=== PATIENT | male | born 1955 | race Caucasian/White ===

== ENCOUNTER 2018-04-03 00:09 | Outpatient (CLI) | payer OTHER, SELFPAY ==
[2018-04-03] MEDS: Regadenoson 0.4 MG/5 ML SYR IVP (15:04)
== END 2018-04-03 00:29 ==
PROVIDERS: PCP Family Medicine; Visit Provider Family Medicine
DX: R06.02 Shortness of breath (principal)
CPT/HCPCS: J2785

== ENCOUNTER 2018-04-03 00:34 | Outpatient (CLI) | payer OTHER, SELFPAY ==
--- NOTE | 2018-04-03 10:25 | DI.US_ITS ---
SYMPTOMS/DIAGNOSIS: H/O KIDNEY TRANSPLANT, Z94.0 RENAL ULTRASOUND: Comparison is made with CT of the abdomen and pelvis dated November,. The [place] kidneys are atrophic. There is a left lower quadrant renal transplant. There is no evidence of hydronephrosis, calcification or perinephric collection. The prevoid bladder volume measured 203 cc. There is an elevated postvoid residual of 84 cc. The bladder wall appears mildly thickened. The prostate was not measured, but appeared mildly enlarged on the previous CT. IMPRESSION: Elevated postvoid residual. Unremarkable renal transplant. Atrophic [place] kidneys without evidence of hydronephrosis.
--- NOTE | 2018-04-03 11:30 | MERGEMPI_ITS ---
*[facility]* *[facility]* [address] [place] [address] Myocardial Perfusion Imaging - SPECT Regadenoson Date of study: 04/03/2018 *PATIENT PRESENTATION* Height: 193cm (76in) Blood Pressure: Weight: 136.4kg (300lb) BSA: 2.75m^2 Referring physician: Bimal Wick Ordering physician: Violetta Sanford Impressions: - Normal perfusion by Tc99m Sestamibi Imaging. - Abnormal contraction consistent with cardiomyopathy. Summary: 1. Myocardial perfusion imaging: The left ventricle is mildly dilated. No myocardial perfusion defects noted. 2. The calculated left ventricular ejection fraction after stress: 33%. LV global systolic function is moderate to severely reduced. Diffuse left ventricular regional motion abnormalities. Recommendations: 1. Transthoracic echocardiography should be performed in order to evaluate LV function. 2. If abnormal LV function on echocardiogram, cardiology consult to discuss cardiac catheterization. Indication: R06.02. History: REASON FOR VISIT: SHORTNESS OF BREATH. DIABETES. KIDNEY TRANSPLANT IN 2007. Risk factors: Diabetes mellitus. Dyslipidemia. Cholesterol: 100mg/dl. HDL: 28mg/dl. LDL: 71mg/dl. Triglycerides: 187mg/dl. ALLERGIES: CLINDAMYCIN. IBUPROFEN. PENICILLINS. LISINOPRIL. MEDICATIONS: PROGRAF 1 MG CAP TWICE A DAY. CELLCEPT 250 MG 2 CAPS TWICE A DAY. LEVEMIR 50 UNITS IN THE AM AND 80 UNITS IN THE PM. HUMALOG KWIKPEN 30-35 UNTIS QID WITH MEALS AND SNACKS. LOSARTAN POTASSIUM 25 MG 1 TAB DAILY. PROPRANOLOL HCL ER 160 MG 2 TABS TWICE A DAY. ATORVASTATIN CALCIUM 20 MG DAILY. GABAPENTIN 300 MG TAKE 3 CAPS THREE TIMES A DAY. BACTRIM DS 800-160 MG TWICE A DAY. OMEPRAZOLE 40 MG DAILY. MONTELUKAST SODIUM 10 MG DAILY. IPRATROPIUM-ALBUTEROL NEBULIZERS. STIOLTO RESPIRMAT MDI 2 PUFFS ONCE A DAY. VENTOLIN HFA MDI PRN. FLUTICASONE PROPIONATE 50 MCG/ACT NASAL SPRAY 2 SPRAYS TWICE A DAY. ASPIRIN 81 MG DAILY. VITAMIN D 2000 UNITS 1 TAB DAILY. FOLIC ACID 1 MG TAKE 2 TABS DAILY. Imaging Technique: Protocol: Regadenoson. Acquisition: Gated SPECT; 1 day - rest/stress. The patient was imaged in the supine position. Attenuation correction used. Isotope administration: - Rest. Tc[99m]-sestamibi. Dose: 9.9mCi. Injection time: 11:55 AM. Injection to stress time: 00:45. - Stress. Tc[99m]-sestamibi. Dose: 28.1mCi. Injection time: 02:30 PM. 1-2 min before end of exercise Baseline ECG: SINUS RHYTHM. 1ST DEGREE AVB. HR 74 BPM. Normal sinus rhythm. Stress protocol: +--------+--+ + + !Stage !HR!BP (mmHg) !Comments ! +--------+--+ + + !Baseline!74!152/64 (93)! ! +--------+--+ + + !1 min !88!142/58 (86)!Inject Regadenoson.! +--------+--+ + + !3 min !85!146/58 (87)! ! +--------+--+ + + !6 min !83!138/52 (81)! ! +--------+--+ + + * Stress results: The rate-pressure product for the peak heart rate and blood pressure was 24383yy Hg/min. Stress ECG: STRESS TEST ENDED IN 6 MINUTES & 18 SECONDS. PT EXPERIENCED NO SIGNIFICANT SIDE EFFECTS FROM THE LEXISCAN INJECTION. NORMAL HEART RATE AND BLOOD PRESSURE RESPONSE TO LEXISCAN INJECTION. NO ECTOPY NO ANGINA NO SIGNIFICANT ST SEGMENT CHANGES. Myocardial perfusion: Imaging information: gated. The image quality was good. The left ventricle is mildly dilated. No myocardial perfusion defects noted. Ventricular Function (Wall Motion): The calculated left ventricular ejection fraction after stress: 33%. LV global systolic function is moderate to severely reduced. Diffuse left ventricular regional motion abnormalities. Study data: Bimal Wick MD supervised and was readily available during the procedure. This study was interpreted by [facility]. Study status: Routine. Consent: The risks, benefits, and alternatives to the procedure were explained to the patient and informed consent was obtained. Procedure: Initial setup. A baseline ECG was recorded. Surface ECG leads and manual cuff blood pressure measurements were monitored. Heart sounds: Normal. Lung sounds: Abnormal. Regadenoson stress test. Stress testing was performed, with regadenoson by intravenous bolus, for a total dose of 0.4mgover 10.00sec, followed by a 5ml saline flush. The infusion was terminated due to per protocol. Study completion: All catheters inserted during the procedure were removed. The patient tolerated the procedure well and was discharged from the lab. Discharge: The patient left the laboratory in stable condition. Birthdate: Patient birthdate: 1955. Sex: Gender: male. Study date: Study date: 04/03/2018. Study time: 12:30 PM. Signature Documentation: - The imaging portion of this study was interpreted by [facility] Bimal Wick MD. - The Stress ECG portion of this study was interpreted by Bimal Wick MD. Electronically signed by Bimal Wick 04/03/2018 16:20
== END 2018-04-03 00:54 ==
PROVIDERS: PCP Family Medicine; Visit Provider Family Medicine
DX: Z94.0 Kidney transplant status (principal); E78.5 Hyperlipidemia, unspecified; R06.02 Shortness of breath; I42.9 Cardiomyopathy, unspecified; I50.1 Left ventricular failure, unspecified; E11.9 Type 2 diabetes mellitus without complications; Z79.4 Long term (current) use of insulin
CPT/HCPCS: 76770; 78452; 93016; 93018; 93017

== ENCOUNTER 2018-04-14 00:31 | Outpatient (CLI) | payer OTHER, SELFPAY ==
--- NOTE | 2018-04-14 13:41 | MERGE_ITS ---
*[facility]* *[facility]* [address] [place] [address] Date of study: 04/14/2018 Transthoracic Echocardiography M-mode, complete 2D, complete spectral Doppler, and color Doppler *STUDY CONCLUSIONS* Impressions: Low-normal LVEF. Recent LVEF estimate on MPI was false-low, likely imaging artifact. Summary: 1. Left ventricle: The cavity size was normal. Wall thickness was increased in a pattern of mild LVH. Systolic function was at the lower limits of normal. The estimated ejection fraction was 50-55%. Wall motion was normal; there were no regional wall motion abnormalities. 2. Mitral valve: Moderate focal calcification of the posterior leaflet. 3. Right ventricle: The cavity size was normal. Wall thickness was normal. Systolic function was normal. 4. Tricuspid valve: There was mild-moderate regurgitation. *PATIENT PRESENTATION* Height: 190.5cm ((75in) ) S/D Pressure: 130 / 67 Weight: 136.1kg ((299.4lb) ) BSA: 2.73m^2 Test start time: 01:40 PM. Test stop time: 02:30 PM. 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. Pertinent images and digital data are archived for permanent storage and are available for subsequent review. Comparison was made to the study of 07/16/2016. Study status: Routine. Transthoracic echocardiography. M-mode, complete 2D, complete spectral Doppler, and color Doppler. A Transthoracic Echocardiogram was performed. Scanning was performed from the parasternal, apical, subcostal, and suprasternal notch acoustic windows. Images were obtained using an [employer] 2000 cardiac ultrasound machine. Image quality was fair. Study completion: The patient tolerated the procedure well. History: PMH: CHF, Abnormal MIBI. *CARDIAC ANATOMY* Left ventricle: The cavity size was normal. Wall thickness was increased in a pattern of mild LVH. Systolic function was at the lower limits of normal. The estimated ejection fraction was 50-55%. Wall motion was normal; there were no regional wall motion abnormalities. Aortic valve: Trileaflet; mildly thickened leaflets. Mobility was not restricted. Doppler: Transvalvular velocity was within the normal range. There was no stenosis. There was no significant regurgitation. VTI ratio of LVOT to aortic valve: 0.7. Valve area (VTI): 2.2cm^2. Indexed valve area (VTI): 0.8cm^2/m^2. Peak velocity ratio of LVOT to aortic valve: 0.59. Valve area (Vmax): 1.9cm^2. Indexed valve area (Vmax): 0.7cm^2/m^2. Mean velocity ratio of LVOT to aortic valve: 0.57. Valve area (Vmean): 1.8cm^2. Indexed valve area (Vmean): 0.7cm^2/m^2. Mean gradient (S): 5.5mm Hg. Peak gradient (S): 10.1mm Hg. Aorta: Aortic root: The aortic root was normal in size. Ascending aorta: The ascending aorta was normal in size. Mitral valve: Moderate focal calcification of the posterior leaflet. Mobility was not restricted. Doppler: Transvalvular velocity was within the normal range. There was no evidence for stenosis. There was trivial regurgitation. Valve area by pressure half-time: 3.7cm^2. Indexed valve area by pressure half-time: 1.4cm^2/m^2. Peak gradient (D): 2.4mm Hg. Left atrium: The atrium was at the upper limits of normal in size. Right ventricle: The cavity size was normal. Wall thickness was normal. Systolic function was normal. Pulmonic valve: Poorly visualized. Doppler: Transvalvular velocity was within the normal range. There was no evidence for stenosis. There was trivial regurgitation. Peak gradient (S): 5.6mm Hg. Tricuspid valve: Structurally normal valve. Doppler: Transvalvular velocity was within the normal range. There was no evidence for stenosis. There was mild-moderate regurgitation. Pulmonary artery: Poorly visualized. Pulmonary systolic pressure was at the upper limits of normal. Right atrium: The atrium was at the upper limits of normal in size. Pericardium: There was no pericardial effusion. Systemic veins: Inferior vena cava: Poorly visualized. Measurements Left ventricle Value 07/16/2016 Reference LV ID, ED, PLAX 5.3 cm 6.2 3.5 - 6.0 LV ID, ES, PLAX 3.8 cm 3.9 2.1 - 4.0 LV PW thickness, ED, PLAX 1.2 cm 1.3 LV end-diastolic volume, 103 ml 1-p A2C LV ejection fraction, 1-p 61 % 57 A2C LV end-diastolic volume, 130 ml 1-p A4C LV ejection fraction, 1-p 48 % 61 A4C Ventricular septum Value 07/16/2016 Reference IVS thickness, ED, PLAX 1.2 cm 1.4 LVOT Value 07/16/2016 Reference LVOT ID, A-P 2.0 cm 2.4 LVOT area 3.1 cm^2 4.4 LVOT peak velocity, S 0.95 m/sec 1.13 LVOT mean velocity, S 0.63 m/sec LVOT VTI, S 19.2 cm 25.2 LVOT peak gradient, S 3.6 mm Hg 5.1 LVOT mean gradient, S 1.9 mm Hg 3 Stroke volume (SV), LVOT 60 ml DP Stroke index (SV/bsa), 22 ml/m^2 LVOT DP Aortic valve Value 07/16/2016 Reference Aortic valve peak 1.6 m/sec velocity, S Aortic valve mean 1.1 m/sec velocity, S Aortic valve VTI, S 27.6 cm Aortic mean gradient, S 5.5 mm Hg 8 Aortic peak gradient, S 10.1 mm Hg 16 VTI ratio, LVOT/AV 0.7 0.58 Aortic valve area, VTI 2.2 cm^2 2.6 Velocity ratio, peak, 0.59 LVOT/AV Aortic valve area, peak 1.9 cm^2 2.5 velocity Velocity ratio, mean, 0.57 LVOT/AV Aortic valve area, mean 1.8 cm^2 velocity Aortic valve area/bsa, 0.7 cm^2/m^2 mean velocity Aorta Value 07/16/2016 Reference Aortic root ID, ED 3.4 cm Ascending aorta ID, A-P, S 3.4 cm 3.3 Left atrium Value 07/16/2016 Reference LA ID, A-P, ES 4.2 cm LA ID/bsa, A-P 1.5 cm/m^2 <=2.2 LA area, ES, A4C 21.6 cm^2 35 8.8 - 23.4 LA area, ES, A2C 23 cm^2 LA volume/bsa, S 28 ml/m^2 LA volume, ES, 2-p 69 ml LA volume/bsa, ES, 2-p 25 ml/m^2 LA/aortic root ratio 1.24 1.43 Mitral valve Value 07/16/2016 Reference Mitral E-wave peak 0.77 m/sec 0.78 velocity Mitral A-wave peak 0.5 m/sec 0.78 velocity Mitral deceleration time 205 ms 150 - 230 Mitral pressure half-time 59 ms 73 Mitral peak gradient, D 2.4 mm Hg 2.4 Mitral E/A ratio, peak 1.54 1.01 Mitral valve area, PHT, DP 3.7 cm^2 3 Pulmonary arteries Value 07/16/2016 Reference PA pressure, S, DP 30 mm Hg <=30 Tricuspid valve Value 07/16/2016 Reference Tricuspid regurg peak 2.5 m/sec 3.7 velocity Tricuspid peak RV-RA 25.1 mm Hg 53.3 gradient Right atrium Value 07/16/2016 Reference RA area, ES, A4C 18.9 cm^2 27 8.3 - 19.5 Systemic veins Value 07/16/2016 Reference Estimated CVP 10 mm Hg Right ventricle Value 07/16/2016 Reference RV pressure, S, DP (H) 35 mm Hg <=30 Pulmonic valve Value 07/16/2016 Reference Pulmonic peak gradient, S 5.6 mm Hg 9 Legend: (L) and (H) pascale values outside specified reference range. I have personally reviewed the images and have reviewed and edited the reported findings. Electronically signed by Dee Whitaker 04/14/2018 15:59
== END 2018-04-14 00:51 ==
PROVIDERS: PCP Family Medicine; Visit Provider Family Medicine
DX: I50.9 Heart failure, unspecified (principal); I05.9 Rheumatic mitral valve disease, unspecified; I07.1 Rheumatic tricuspid insufficiency
CPT/HCPCS: 93306

== ENCOUNTER 2018-05-04 11:50 | Emergency (ER) | payer OTHER, SELFPAY ==
[2018-05-04 11:59] VITALS: BP 128/61; PULSE 90; RESP 18; TEMP 37.2; O2SAT 95
--- NOTE | 2018-05-04 12:13 | DI.RAD_ITS ---
SYMPTOMS/DIAGNOSIS: COUGH AND FEVER PA AND LATERAL CHEST: Comparison is made with September,. The heart size is normal. The lungs are clear. No infiltrate or effusion is seen. IMPRESSION: Negative chest x-ray.
--- NOTE | 2018-05-04 12:14 | W.ED.GENAD ---
Discharge Plan Disposition Patient Disposition: HOME Condition: Stable Discharge Details Chief Complaint: RespSymp Clinical Impression: COPD with exacerbation Primary Care Provider: Violetta Sanford ED Provider: Alejo Carlisle Home Meds and New Rx's Prescriptions: New prednisone 20 mg tablet 60 mg PO DAILY 4 Days Qty: 12 RF: 0 levofloxacin 750 mg tablet 750 mg PO DAILY Qty: 7 RF: 0 Continue propranolol [Inderal LA] 160 MG capsule,extended release 24 hr 160 mg PO BID RF: 0 aspirin [Aspirin Low Dose] 81 MG tablet,delayed release (DR/EC) 81 mg PO DAILY RF: 0 omeprazole [Prilosec] 40 MG capsule,delayed release(DR/EC) 40 mg PO DAILY RF: 0 montelukast 10 MG tablet 10 mg PO DAILY RF: 0 multivitamin [Daily Multi-Vitamin] 1 EACH tablet 1 ea PO DAILY RF: 0 tacrolimus [Prograf] 1 MG capsule 1 mg PO BID RF: 0 gabapentin 300 MG capsule 900 mg PO TID RF: 0 cholecalciferol (vitamin D3) [Vitamin D3] 2,000 UNIT tablet 2,000 unit PO DAILY RF: 0 fluticasone 16 GM spray,suspension 2 spry NS DAILY PRNRF: 0 albuterol sulfate [ProAir HFA] 200 PUFF HFA aerosol inhaler 2 puff Inhalation PRN PRNRF: 0 albuterol sulfate [Ventolin HFA] 90 mcg/actuation Hfa Aerosol Inhaler 90 mcg Inhalation RF: 0 tiotropium-olodaterol [Stiolto Respimat] 2.5-2.5 mcg/actuation Mist 2.5 mcg Inhalation RF: 0 insulin aspart U-100 [Novolog Flexpen U-100 Insulin] 300 UNITS/3 ML insulin pen Sub-Q 0800,1200,1700 RF: 0 insulin aspart U-100 [Novolog Flexpen U-100 Insulin] 300 UNITS/3 ML insulin pen Sub-Q AC Qty: 0 RF: 0 insulin detemir U-100 [Levemir FlexTouch U-100 Insuln] 300 UNITS/3 ML insulin pen 80 units Sub-Q QPM RF: 0 insulin detemir U-100 [Levemir FlexTouch U-100 Insuln] 300 UNITS/3 ML insulin pen 50 units Sub-Q QAM RF: 0 atorvastatin [Lipitor] 20 MG tablet 1 tab PO DAILY RF: 0 losartan 25 MG tablet 0.5 tab PO DAILY RF: 0 Discharge Instructions Instructions: COPD (Chronic Obstructive Pulmonary Disease) (ED) Additional Instructions: follow up with your primary care provider's office within a week if you have significant worsening of breathing despite using your inhalers or nebulizers return to the emergency department Discharge Data Discharge Physician: Alejo Carlisle Medical Decision Making 62 yo male with hx of cad, hld, htn, ckd, copd, former smoker, comes in with productive cough and subjective fevers since yesterday. Denies recent travel, chest pain or abdominal pain. He does have wheezing bilaterally on exam but is speaking in full sentences. Suspect copd exacerbation will treat with steroids and nebulizer, and obtai xray to eval for pna as well. pt's labs show no acute abnormality and xray unremrakable, lung sounds much improved. I am going to start tx for copd exacerbation and he is stable for outpatient management, will have him f/u with pcps office within a week and return precautions given Differential Diagnosis copd, pna, influenza HPI General Mode of arrival: wheelchair. Date/Time Provider Initiated Documentation: 05/04/18 12:03. Limitations to Documentation: no limitations. Information obtained by: patient. History of Present Illness 62 year old M presents to the emergency department with the chief complaint of cough, described as moderate, with intensity rated at 3. No relieving factors improve symptom(s), No exacerbating factors reported . Patient notes other (subjective fevers). Patient did receive the following treatments prior to arrival, none Related Data Home Medications Medication Instructions Recorded Confirmed aspirin [Aspirin Low Dose] 81 mg PO DAILY 10/31/12 05/04/18 montelukast 10 mg PO DAILY tab-cap 10/31/12 05/04/18 omeprazole [Prilosec] 40 mg PO DAILY 10/31/12 05/04/18 propranolol [Inderal LA] 160 mg PO BID 10/31/12 05/04/18 multivitamin [Daily Multi-Vitamin] 1 ea PO DAILY 05/10/13 05/04/18 tacrolimus [Prograf] 1 mg PO BID 06/15/13 05/04/18 gabapentin 900 mg PO TID 10/30/14 05/04/18 albuterol sulfate [ProAir HFA] 2 puff INHALATION PRN PRN 01/16/16 05/04/18 cholecalciferol (vitamin D3) 2,000 unit PO DAILY 01/16/16 05/04/18 [Vitamin D3] fluticasone 2 spry NS DAILY PRN 01/16/16 05/04/18 insulin aspart U-100 [Novolog 0 units SUB-Q 0800,1200,1700 pen 07/19/16 05/04/18 Flexpen U-100 Insulin] insulin aspart U-100 [Novolog See Protocol SUB-Q AC #0 pen 07/19/16 05/04/18 Flexpen U-100 Insulin] insulin detemir U-100 [Levemir 50 units SUB-Q QAM pen 07/19/16 05/04/18 FlexTouch U-100 Insuln] insulin detemir U-100 [Levemir 80 units SUB-Q QPM pen 07/19/16 05/04/18 FlexTouch U-100 Insuln] atorvastatin [Lipitor] 1 tab PO DAILY 02/01/17 05/04/18 losartan 0.5 tab PO DAILY 02/01/17 05/04/18 albuterol sulfate [Ventolin HFA] 90 mcg INHALATION 05/04/18 levofloxacin 750 mg PO DAILY #7 tab 05/04/18 prednisone 60 mg PO DAILY 4 Days #12 tab 05/04/18 tiotropium-olodaterol [Stiolto 2.5 mcg INHALATION 05/04/18 Respimat] Previous Rx's Medication Instructions Recorded insulin aspart U-100 [Novolog 0 units SUB-Q 0800,1200,1700 pen 07/19/16 Flexpen U-100 Insulin] insulin aspart U-100 [Novolog See Protocol SUB-Q AC #0 pen 07/19/16 Flexpen U-100 Insulin] insulin detemir U-100 [Levemir 50 units SUB-Q QAM pen 07/19/16 FlexTouch U-100 Insuln] insulin detemir U-100 [Levemir 80 units SUB-Q QPM pen 07/19/16 FlexTouch U-100 Insuln] levofloxacin 750 mg PO DAILY #7 tab 05/04/18 prednisone 60 mg PO DAILY 4 Days #12 tab 05/04/18 Allergies Allergy/AdvReac Type Severity Reaction Status Date / Time clindamycin Allergy Skin Rash Verified 05/04/18 12:41 ibuprofen Allergy Verified 05/04/18 12:41 Penicillins Allergy SWELLING Verified 05/04/18 12:41 tree nut Allergy Verified 05/04/18 12:41 lisinopril AdvReac KIDNEY Verified 05/04/18 12:41 SHUT DOWN yanteh inhibitors Allergy Mild Skin Rash Uncoded 05/04/18 12:41 CATS & BIRDS AdvReac Intermediate WHEEZING Uncoded 05/04/18 12:41 General Stated Complaint: RespSymp RADHA: 3 Review of Systems Review of Systems All systems reviewed & are unremarkable except as noted in HPI and below Constitutional Denies weakness Eyes Denies loss of vision ENT Denies change in voice Cardiovascular Denies chest pain Respiratory Reports cough Gastrointestinal Denies abdominal pain, Denies nausea and Denies vomiting Genitourinary Denies dysuria Musculoskeletal Denies joint swelling Integumentary/Breasts Denies rash Neurologic Denies loss of vision and Denies weakness Psychiatric Denies depression Endocrine Denies cold intolerance and Denies heat intolerance PFSH Family History Brother Personal history of malignant neoplasm Medical History COPD (chronic obstructive pulmonary disease) GERD (gastroesophageal reflux disease) LEFT FOREARM AV FISTULA MELISSA (obstructive sleep apnea) Social History Smoking/Tobacco Use Status: Former Tobacco Use Surgical History Colonoscopy - MAC (02/01/17) EGD - MAC (04/02/16) Exam Const General: no acute distress Orientation: alert HENMT Head: normal to inspection Ears: external ears normal General nose exam: external nose normal Mouth: moist mucous membranes Eyes General: appearance normal, both eyes and all related structures Neck Neck: normal visual inspection Resp Effort & Inspection: normal respiratory effort, able to speak in complete sentences and audible wheezes Cardio Rate: regular rate Skin General skin exam: no rashes or lesions noted Neuro General: alert and oriented x3 Extrem General: normal to inspection Psych Mental Status: mental status grossly normal Course Vital Signs Temperature 37.2 C 05/04/18 11:59 Pulse 90 05/04/18 11:59 Respiratory Rate 18 05/04/18 11:59 Blood Pressure 128/61 05/04/18 11:59 Pulse Oximetry 95 05/04/18 11:59 Temperature 37.2 C 05/04/18 11:59 Temperature Source Skin 05/04/18 11:59 Pulse 90 05/04/18 11:59 Respiratory Rate 18 05/04/18 11:59 Respiratory Effort 05/04/18 12:02 Respiratory Depth Normal 05/04/18 12:01 Blood Pressure 128/61 05/04/18 11:59 Blood Pressure Position Sitting 05/04/18 11:59 Pulse Oximetry 95 05/04/18 11:59 Oxygen Delivery Method Room Air 05/04/18 11:59 Oxygen Flow Rate 0 05/04/18 11:59
[2018-05-04 12:32] LABS: Abs Immature Grans 0.01 k/cumm (0.0-0.09); Absolute Basophil Count 0.03 k/cumm (0.0-0.2); Absolute Eosinophil Count 0.18 k/cumm (0.0-0.7); Absolute Lymphocyte Count 1.35 k/cumm (1.2-3.4); Absolute Monocyte Count 0.66 k/cumm (0.11-0.7); Basophils % 0.4; Eosinophils % 2.5; HCT 35.7 % (40.0-50.0); HGB 11.2 g/dL (13.5-17.5); Immature Grans % 0.1; Lymphocytes % 18.4; Mean Corp. HGB Concentration 31.4 g/dL (32.0-36.0); Mean Corpuscular Hemoglobin 30.8 pg (27.0-33.0); Mean Corpuscular Volume 98.1 fL (80-95); Neutrophils % 69.6; Platelet Count 173 x1000/uL (130-400); RBC 3.64 m/cumm (4.50-6.00); RBC Distribution Width 14.1 % (11.8-14.1); White Blood Cell Count 7.33 k/cumm (4.4-10.8)
[2018-05-04] MEDS: predniSONE 20 MG TAB 60 MG PO (12:38)
[2018-05-04] MEDS: Albuterol/Ipratropium 3 ML UPD VIAL UPD (12:38)
[2018-05-04 12:43] LABS: ALT 37 U/L (12-78); AST 26 U/L (15-37); Albumin 2.7 g/dL (3.4-5.0); Alkaline Phosphatase 146 U/L (46-116); Anion Gap 6.3 mmol/L (3-11); BUN 36 mg/dL (7-18); Bilirubin, Total 0.6 mg/dL (0.2-1.0); CO2 25.7 mmol/L (21.0-32.0); CREATININE 2.24 mg/dL (0.70-1.30); Calcium 8.9 mg/dL (8.5-10.1); Chloride 107 mmol/L (98-107); Estimated GFR 29.66 (mL/min/1.73m2); Glucose 179 mg/dL (70-100); Sodium 139 mmol/L (136-145); Total Protein 7.9 g/dL (6.4-8.2)
[2018-05-04 13:37] VITALS: BP 135/80; PULSE 88; RESP 18; TEMP 36.8; O2SAT 99
--- NOTE | 2018-05-05 09:57 | CMPROGNOTE_ITS ---
Care Management Progress Note 05/05/18-Pt was seen on 05/04/18 for COPD exacerbation by Dr. Prince Carlisle. F/U requested within 1 week to PCP at [facility].
== END 2018-05-04 13:37 | disposition home or self-care (01) ==
PROVIDERS: Emergency Provider Emergency Medicine; PCP Family Medicine
DX: J44.1 Chronic obstructive pulmonary disease with (acute) exacerbation (principal); Z87.891 Personal history of nicotine dependence; I12.0 Hypertensive chronic kidney disease with stage 5 chronic kidney disease or end stage renal disease; N18.6 End stage renal disease; Z94.0 Kidney transplant status; E11.22 Type 2 diabetes mellitus with diabetic chronic kidney disease; Z79.4 Long term (current) use of insulin
CPT/HCPCS: 36415; 80053; 94640; 99283; 71046; 85025; J7512; J7620

== ENCOUNTER 2018-05-09 01:37 | Outpatient (CLI) | payer OTHER, SELFPAY ==
[2018-05-09 12:56] LABS: Cholesterol 106 mg/dL (50-200)
[2018-05-09 12:59] LABS: ALT 24 U/L (12-78); AST 10 U/L (15-37); Albumin 2.9 g/dL (3.4-5.0); Alkaline Phosphatase 136 U/L (46-116); Anion Gap 11.6 mmol/L (3-11); BUN 52 mg/dL (7-18); Bilirubin, Total 0.4 mg/dL (0.2-1.0); CO2 23.4 mmol/L (21.0-32.0); CREATININE 2.12 mg/dL (0.70-1.30); Calcium 9.3 mg/dL (8.5-10.1); Chloride 104 mmol/L (98-107); Estimated GFR 31.61 (mL/min/1.73m2); Glucose 299 mg/dL (70-100); Magnesium 1.6 mg/dL (1.8-2.4); PHOSPHORUS 3.6 mg/dL (2.6-4.7); Potassium 4.5 mmol/L (3.5-5.1); Sodium 139 mmol/L (136-145); Total Protein 7.8 g/dL (6.4-8.2); Uric Acid 7.3 mg/dL (3.5-7.2)
[2018-05-09 14:23] LABS: HCT 40.1 % (40.0-50.0); HGB 12.9 g/dL (13.5-17.5); Mean Corp. HGB Concentration 32.2 g/dL (32.0-36.0); Mean Corpuscular Hemoglobin 31.2 pg (27.0-33.0); Mean Corpuscular Volume 96.9 fL (80-95); Mean Platelet Volume 8.8 fL (8.0-11.0); Platelet Count 272 x1000/uL (130-400); RBC 4.14 m/cumm (4.50-6.00); RBC Distribution Width 14.2 % (11.8-14.1); White Blood Cell Count 11.96 k/cumm (4.4-10.8)
[2018-05-10 13:59] LABS: Tacrolimus 8.9 ng/ml
== END 2018-05-09 01:57 ==
PROVIDERS: PCP Family Medicine; Visit Provider Internal Medicine Nephrology
DX: Z29.8 Encounter for other specified prophylactic measures (principal); Z94.0 Kidney transplant status; Z79.899 Other long term (current) drug therapy
CPT/HCPCS: 36415; 80053; 85027; 80197; 82465; 83735; 84100; 84550

== ENCOUNTER 2018-05-25 00:41 | Outpatient (CLI) | payer OTHER, SELFPAY ==
--- NOTE | 2018-05-25 12:26 | DI.RAD_ITS ---
SYMPTOMS/DIAGNOSIS: BACK PAIN LUMBAR, M54.5, SCIATICA RT, M54.31 LUMBAR SPINE: The vertebral bodies are intact. Narrowed vacuum discs are demonstrated at L 3 - 4 and L 4 - 5. There are prominent associated bony degenerative changes at L 4 - 5 including discogenic sclerosis and hypertrophic spurring. There is severe facet joint DJD at L 5 - S 1 bilaterally. There is no evidence of spondylolysis or spondylolisthesis. The pedicle, spinous and transverse processes appear intact. The sacrum and sacroiliac joints are unremarkable. SUMMARY: Degenerative changes involving the lower lumbar spine as described above. If there is a specific clinical question regarding the possibility of spinal stenosis in this patient, then further assessment with MRI is suggested.
== END 2018-05-25 01:01 ==
PROVIDERS: PCP Family Medicine; Visit Provider Family Medicine
DX: M54.31 Sciatica, right side (principal); M54.5 Low back pain; M47.817 Spondylosis without myelopathy or radiculopathy, lumbosacral region
CPT/HCPCS: 72110

== ENCOUNTER 2018-08-11 08:45 | Outpatient (CLI) | payer OTHER, SELFPAY ==
[2018-08-11 09:25] LABS: HCT 39.2 % (40.0-50.0); HGB 12.2 g/dL (13.5-17.5); Mean Corp. HGB Concentration 31.1 g/dL (32.0-36.0); Mean Corpuscular Hemoglobin 30.4 pg (27.0-33.0); Mean Corpuscular Volume 97.8 fL (80-95); Mean Platelet Volume 8.4 fL (8.0-11.0); Platelet Count 227 x1000/uL (130-400); RBC 4.01 m/cumm (4.50-6.00); RBC Distribution Width 14.9 % (11.8-14.1); White Blood Cell Count 7.47 k/cumm (4.4-10.8)
[2018-08-11 10:01] LABS: Bilirubin Negative (Negative); Blood Negative (Negative); Clarity Clear; Glucose Negative (Negative); Ketones Negative (Negative); Leukocyte Esterase Negative (Negative); Nitrite Negative (Negative); Urobilinogen 0.2 EU/dL (Up TO 0.2)
[2018-08-11 10:34] LABS: PROTEIN 52.1 mg/dL
[2018-08-11 10:39] LABS: COMMENT (LAB VIEW ONLY) 84.03 mg/dL; Prot/Crea Ur Ratio 0.62
[2018-08-11 10:45] LABS: ALT 33 U/L (12-78); AST 26 U/L (15-37); Alkaline Phosphatase 160 U/L (46-116); Anion Gap 9.5 mmol/L (3-11); BUN 29 mg/dL (7-18); Bilirubin, Total 0.5 mg/dL (0.2-1.0); CO2 25.5 mmol/L (21.0-32.0); CREATININE 2.04 mg/dL (0.70-1.30); Calcium 9.3 mg/dL (8.5-10.1); Chloride 106 mmol/L (98-107); Estimated GFR 32.94 (mL/min/1.73m2); Glucose 142 mg/dL (70-100); Magnesium 1.5 mg/dL (1.8-2.4); PHOSPHORUS 3.9 mg/dL (2.6-4.7); Potassium 4.7 mmol/L (3.5-5.1); Sodium 141 mmol/L (136-145); Total Protein 7.9 g/dL (6.4-8.2); Uric Acid 8.2 mg/dL (3.5-7.2)
[2018-08-11 10:46] LABS: Cholesterol 100 mg/dL (50-200)
[2018-08-11 11:01] LABS: Bacteria Negative HPF (Negative); C & S Indicated? No; Casts Negative LPF (Negative); Crystals Negative HPF (Negative); Epithelial Cells Rare HPF (Negative); Mucus Negative (Negative); WBC 0-2 HPF (0-5)
[2018-08-11 12:22] LABS: COMMENT (LAB VIEW ONLY) 82.09 mg/dL; Microalb ug/mg Crea 229.5 ug/mg Cr
[2018-08-12 12:45] LABS: Tacrolimus 4.4 ng/ml
== END 2018-08-11 09:05 ==
PROVIDERS: PCP Family Medicine; Visit Provider Internal Medicine Nephrology
DX: E11.9 Type 2 diabetes mellitus without complications (principal); Z94.0 Kidney transplant status; Z79.899 Other long term (current) drug therapy
CPT/HCPCS: 36415; 80053; 85027; 80197; 81003; 81015; 82043; 82465; 82565; 82570; 83735; 84100; 84156; 84550

== ENCOUNTER 2018-09-12 12:41 | Emergency (ER) | payer OTHER, SELFPAY ==
[2018-09-12] VITALS (95 sets, daily range): BP systolic 70–153; BP diastolic 30–79; PULSE 71–98; RESP 13–26; TEMP 37–37.4; O2SAT 86–97
--- NOTE | 2018-09-12 13:08 | DI.RAD_ITS ---
SYMPTOMS/DIAGNOSIS: COUGH CHEST X-RAY, FRONTAL AND LATERAL VIEWS: Comparison is 05/04/18. The study is suboptimal due to patient motion and poor inspiration. The heart size and pulmonary vasculature are stable and within normal limits. No definite focal consolidating infiltrates, effusions or pneumothoraces are identified. IMPRESSION: Limited examination. No definite acute pulmonary process.
[2018-09-12] MEDS: Lactated Ringers 1,000 ML 1000 ML IV (13:17)
[2018-09-12 13:28] LABS: Abs Immature Grans 0.03 k/cumm (0.0-0.09); Absolute Basophil Count 0.03 k/cumm (0.0-0.2); Absolute Eosinophil Count 0.07 k/cumm (0.0-0.7); Absolute Monocyte Count 0.96 k/cumm (0.11-0.7); Basophils % 0.2; Eosinophils % 0.5; HCT 38.7 % (40.0-50.0); HGB 12.4 g/dL (13.5-17.5); Immature Grans % 0.2; Lactate 1.7 mmol/L (0.6-1.4); Lymphocytes % 13.9; Mean Corpuscular Hemoglobin 30.9 pg (27.0-33.0); Mean Corpuscular Volume 96.5 fL (80-95); Mean Platelet Volume 8.7 fL (8.0-11.0); Monocytes % 7.1; Neutrophils % 78.1; Platelet Count 225 x1000/uL (130-400); RBC 4.01 m/cumm (4.50-6.00); RBC Distribution Width 14.6 % (11.8-14.1); White Blood Cell Count 13.55 k/cumm (4.4-10.8)
[2018-09-12 13:30] LABS: Absolute Lymphocyte Count 1.88 k/cumm (1.2-3.4); Absolute Neutrophil Count 10.58 k/cumm (1.2-6.7)
[2018-09-12 13:49] LABS: ALT 28 U/L (12-78); AST 22 U/L (15-37); Albumin 2.8 g/dL (3.4-5.0); Alkaline Phosphatase 160 U/L (46-116); Anion Gap 11.5 mmol/L (3-11); BUN 33 mg/dL (7-18); Bilirubin, Total 0.6 mg/dL (0.2-1.0); CO2 21.5 mmol/L (21.0-32.0); CREATININE 2.22 mg/dL (0.70-1.30); Calcium 9.3 mg/dL (8.5-10.1); Chloride 107 mmol/L (98-107); Estimated GFR 29.88 (mL/min/1.73m2); Glucose 264 mg/dL (70-100); Potassium 5.5 mmol/L (3.5-5.1); Sodium 140 mmol/L (136-145); Total Protein 8.7 g/dL (6.4-8.2)
[2018-09-12 14:33] LABS: Bilirubin Negative (Negative); Blood Trace-intact (Negative); Clarity Clear; Glucose Negative (Negative); Ketones Negative (Negative); Leukocyte Esterase Negative (Negative); Nitrite Negative (Negative); Urobilinogen 0.2 EU/dL (Up TO 0.2); pH 5.5 (5-8)
[2018-09-12] MEDS: Dextrose 50%-Water 25 GM/50 ML SYR IVP (14:43)
--- NOTE | 2018-09-12 14:43 | ED.GENADUL_ITS ---
Discharge Plan Disposition Patient Disposition: OTHER Condition: Serious Discharge Details Chief Complaint: Fever Clinical Impression: Fever, Abdominal wall cellulitis Primary Care Provider: Violetta Sanford ED Provider: Archie Porter Home Meds and New Rx's Prescriptions: No Action mycophenolate mofetil [CellCept] 250 mg capsule 500 mg PO BID RF: 0 folic acid 1 mg tablet 1 mg PO DAILY RF: 0 Humalog KwikPen Insulin 100 unit/mL insulin pen See Patient Comments SC BID RF: 0 Victoza 2-Nigel 0.6 mg/0.1 mL (18 mg/3 mL) pen injector 1.8 mg SC DAILY RF: 0 glucagon HCl 1 mg recon soln 1 mg IM ONCE PRNRF: 0 propranolol [Inderal LA] 160 MG capsule,extended release 24 hr 160 mg PO TID RF: 0 aspirin [Aspirin Low Dose] 81 MG tablet,delayed release (DR/EC) 81 mg PO DAILY RF: 0 omeprazole [Prilosec] 40 MG capsule,delayed release(DR/EC) 40 mg PO DAILY RF: 0 montelukast 10 MG tablet 10 mg PO DAILY RF: 0 multivitamin [Daily Multi-Vitamin] 1 EACH tablet 1 ea PO DAILY RF: 0 tacrolimus [Prograf] 1 MG capsule 1 mg PO BID RF: 0 gabapentin 300 MG capsule 900 mg PO TID RF: 0 cholecalciferol (vitamin D3) [Vitamin D3] 2,000 UNIT tablet 2,000 unit PO DAILY RF: 0 fluticasone propionate 16 GM spray,suspension 2 spry NS DAILY PRNRF: 0 ProAir HFA 200 PUFF HFA aerosol inhaler 2 puff Inhalation PRN PRNRF: 0 Ventolin HFA 90 mcg/actuation Hfa Aerosol Inhaler 90 mcg Inhalation RF: 0 Stiolto Respimat 2.5-2.5 mcg/actuation Mist 2.5 mcg Inhalation DAILY RF: 0 Levemir FlexTouch U-100 Insuln 300 UNITS/3 ML insulin pen 80 units Sub-Q QPM RF: 0 Levemir FlexTouch U-100 Insuln 300 UNITS/3 ML insulin pen 50 units Sub-Q QAM RF: 0 atorvastatin [Lipitor] 20 MG tablet 1 tab PO DAILY RF: 0 losartan 25 MG tablet 0.5 tab PO DAILY RF: 0 Discharge Data Discharge Date/Time-TO BE ENTERED AT DEPARTURE: 09/12/18 19:25 Medical Decision Making 18:50 -- 63-year-old male with multiple medical problems including history of chronic kidney disease, now status post kidney transplant, insulin-dependent diabetes, fever and episode of vomiting, recent cough. Abdominal wall erythema concerning for cellulitis. I suspect this is the source of his infection. IVF fluid bolus given. Called and spoke with transplant specialist biomedical electronics technician [place] [facility] [place] presentation and course. He recommended starting vancomycin 1g as well as meropenem. Patient has multiple allergies. I am reluctant to start meropenem given penicillin allergy and potential cross-reactivity. ECG was reviewed and interpreted by me: Sinus rhythm 89 bpm, first-degree AV block with CO interval 266, normal axis, peaked T's noted V2 to V4 that are somewhat more pronounced than prior EKG from 09/25/2017. Patient was given calcium gluconate, sodium bicarb, insulin and glucose. Repeat chem noted persistent but improved mild hyperkalemia. Chest x-ray was reviewed and interpreted by radiology:IMPRESSION: Limited examination. No definite acute pulmonary process. CT of the abdomen pelvis to assess for abdominal wall abscess reviewed and interpreted by radiology: IMPRESSION: 1. Subcutaneous fat stranding along the superficial anterior abdominal wall, possibly reflecting cellulitis. 2. Possible wall thickening of the distal sigmoid colon and rectum, though limited evaluation without oral contrast. Colitis cannot be excluded. 3. Other chronic findings, as above. Plan for admission. No beds available at [facility]. I spoke with Shandra Jiménez at [facility] [place] who will accept the patient in transfer. Awaiting EMS for transfer. HPI General Mode of arrival: ambulatory . Date/Time Provider Initiated Documentation: 09/12/18 13:00 . Limitations to Documentation: no limitations . Information obtained by: patient . HPI Narrative: 63-year-old male here with chief complaint of fever and vomiting. Symptoms started last night and have persisted. Fever was as high as 101.5. He took 2 Tylenol earlier today and that helped his fever. He has associated mild dry cough over the past couple weeks. No dysuria. Related Data Home Medications Medication Instructions Recorded Confirmed aspirin [Aspirin Low Dose] 81 mg PO DAILY 10/31/12 09/12/18 montelukast 10 mg PO DAILY tab-cap 10/31/12 09/12/18 omeprazole [Prilosec] 40 mg PO DAILY 10/31/12 09/12/18 propranolol [Inderal LA] 160 mg PO TID 10/31/12 09/12/18 multivitamin [Daily Multi-Vitamin] 1 ea PO DAILY 05/10/13 09/12/18 tacrolimus [Prograf] 1 mg PO BID 06/15/13 09/12/18 gabapentin 900 mg PO TID 10/30/14 09/12/18 ProAir HFA 2 puff INHALATION PRN PRN 01/16/16 09/12/18 cholecalciferol (vitamin D3) 2,000 unit PO DAILY 01/16/16 09/12/18 [Vitamin D3] fluticasone propionate 2 spry NS DAILY PRN 01/16/16 09/12/18 Levemir FlexTouch U-100 Insuln 50 units SUB-Q QAM pen 07/19/16 09/12/18 Levemir FlexTouch U-100 Insuln 80 units SUB-Q QPM pen 07/19/16 09/12/18 atorvastatin [Lipitor] 1 tab PO DAILY 02/01/17 09/12/18 losartan 0.5 tab PO DAILY 02/01/17 09/12/18 Stiolto Respimat 2.5 mcg INHALATION DAILY 05/04/18 09/12/18 Ventolin HFA 90 mcg INHALATION 05/04/18 06/12/18 folic acid 1 mg tablet 1 mg PO DAILY 06/12/18 09/12/18 glucagon HCl 1 mg solution for 1 mg IM ONCE PRN 06/12/18 09/12/18 injection insulin lispro (U- 100) 100 See Rx Instructions SC BID 06/12/18 09/12/18 unit/mL subcutaneous pen liraglutide 0.6 mg/0.1 mL (18 mg/3 1.8 mg SC DAILY ml 06/12/18 09/12/18 mL) subcutaneous pen injector mycophenolate mofetil 250 mg 500 mg PO BID 06/12/18 09/12/18 capsule Previous Rx's Medication Instructions Recorded Levemir FlexTouch U-100 Insuln 50 units SUB-Q QAM pen 07/19/16 Levemir FlexTouch U-100 Insuln 80 units SUB-Q QPM pen 07/19/16 Allergies Allergy/AdvReac Type Severity Reaction Status Date / Time levofloxacin Allergy Mild Unverified 06/12/18 14:05 sulfamethoxazole Allergy Mild Unverified 06/12/18 14:05 [From Bactrim] trimethoprim [From Bactrim] Allergy Mild Unverified 06/12/18 14:05 clindamycin Allergy Skin Rash Verified 05/04/18 12:41 ibuprofen Allergy Verified 05/04/18 12:41 Penicillins Allergy SWELLING Verified 05/04/18 12:41 tree nut Allergy Verified 05/04/18 12:41 lisinopril AdvReac KIDNEY Verified 05/04/18 12:41 SHUT DOWN yaneth inhibitors Allergy Mild Skin Rash Uncoded 05/04/18 12:41 CATS & BIRDS AdvReac Intermediate WHEEZING Uncoded 05/04/18 12:41 General Stated Complaint: Fever RADHA: 2 Review of Systems Review of Systems All systems reviewed & are unremarkable except as noted in HPI and below PFSH Medical History Anxiety and depression (Acute) Erectile dysfunction (Acute) Gastroparesis diabeticorum (Acute) Hydrocele (Acute) Hyperlipidemia (Acute) Intention tremor (Acute) Lumbar back pain (Acute) Macrocytic anemia (Acute) Sciatica (Acute) Stage 3 severe COPD by GOLD classification (Acute) Tricuspid insufficiency (Acute) Diabetes mellitus (Chronic) HTN (hypertension) (Chronic) MELISSA (obstructive sleep apnea) (Chronic) Obesity (Chronic) COPD (chronic obstructive pulmonary disease) GERD (gastroesophageal reflux disease) LEFT FOREARM AV FISTULA MELISSA (obstructive sleep apnea) Surgical History Hx of amputation below knee (Acute) Kidney transplant recipient (Acute) Colonoscopy - MAC (02/01/17) EGD - MAC (04/02/16) Family History Brother Personal history of malignant neoplasm Social History Smoking and Tabacco status: Former Tobacco Use Exam Const General: cooperative and no acute distress HENMT Head: normocephalic and atraumatic Mouth: moist mucous membranes Eyes Conjunctivae: normal conjunctivae Sclera: normal sclerae Neck Neck: trachea midline and supple Resp Auscultation: clear to auscultation bilaterally, no rales, no rhonchi and no wheezes Cardio Jugular venous pressure: no JVD Rate: regular rate and not tachycardic Rhythm: regular rhythm GI Palpation: soft, not firm, no guarding, no masses, not rigid and nontender Skin General skin exam: no rashes or lesions noted Rashes: rashes noted (Right lower abdominal wall erythema, no fluctuance) Neuro General: alert, awake, oriented x3 and tone normal Extrem General: no edema Other: Lower leg amputations bilateral Psych Appearance: grossly normal Mental Status: mental status grossly normal Course Vital Signs Temperature 37 C 09/12/18 12:58 Pulse 98 H 09/12/18 12:58 Respiratory Rate 20 09/12/18 12:58 Blood Pressure 153/79 H 09/12/18 12:58 Pulse Oximetry 94 L 09/12/18 12:58 Temperature 37.4 C 09/12/18 14:06 Temperature Source Oral 09/12/18 14:06 Pulse 98 H 09/12/18 12:58 Respiratory Rate 20 09/12/18 12:58 Respiratory Effort Non-Labored 09/12/18 13:04 Blood Pressure 153/79 H 09/12/18 12:58 Blood Pressure Position Supine 09/12/18 12:58 Pulse Oximetry 94 L 09/12/18 12:58 Oxygen Delivery Method Room Air 09/12/18 12:58 Oxygen Flow Rate 0 09/12/18 12:58 Lab/Test Results Lab/Test Results: 09/12/18 13:33 Blood Blood Culture - Pending 09/12/18 13:05 Blood Blood Culture - Pending Laboratory Tests Range/Units 09/12/18 09/12/18 09/12/18 13:05 13:05 13:05 WBC (4.4-10.8) k/cumm 13.55 H RBC (4.50-6.00) m/cumm 4.01 L Hgb (13.5-17.5) g/dL 12.4 L Hct (40.0-50.0) % 38.7 L MCV (80-95) fL 96.5 H MCH (27.0-33.0) pg 30.9 MCHC (32.0-36.0) g/dL 32.0 RDW (11.8-14.1) % 14.6 H Plt Count (130-400) x1000/uL 225 MPV (8.0-11.0) fL 8.7 Immature Gran % 0.2 Neutrophils % 78.1 Lymphocytes % 13.9 Monocytes % 7.1 Eosinophils % 0.5 Basophils % 0.2 Absolute Neutrophils (1.2-6.7) k/cumm 10.58 H Absolute Lymphocytes (1.2-3.4) k/cumm 1.88 Absolute Monocytes (0.11-0.7) k/cumm 0.96 H Absolute Eosinophils (0.0-0.7) k/cumm 0.07 Absolute Basophils (0.0-0.2) k/cumm 0.03 Sodium (136-145) mmol/L 140 Potassium (3.5-5.1) mmol/L 5.5 H Chloride (98-107) mmol/L 107 Carbon Dioxide (21.0-32.0) mmol/L 21.5 Anion Gap (3-11) mmol/L 11.5 H BUN (7-18) mg/dL 33 H Creatinine (0.70-1.30) mg/dL 2.22 H Estimated GFR/1.73 m2 (mL/min/1.73m2) 29.88 Glucose (70-100) mg/dL 264 H Lactate (0.6-1.4) mmol/L 1.7 H Calcium (8.5-10.1) mg/dL 9.3 Total Bilirubin (0.2-1.0) mg/dL 0.6 AST (15-37) U/L 22 ALT (12-78) U/L 28 Alkaline Phosphatase (46-116) U/L 160 H Total Protein (6.4-8.2) g/dL 8.7 H Albumin (3.4-5.0) g/dL 2.8 L Urine Color (Yellow) Urine Clarity Urine pH (5-8) Ur Specific [place] (1.005-1.025) Urine Protein (Negative) mg/dL Urine Ketones (Negative) mg/dL Urine Blood (Negative) Urine Nitrite (Negative) Urine Bilirubin (Negative) Urine Urobilinogen (Up TO 0.2) EU/dL Ur Leukocyte Esterase (Negative) Urine Glucose (Negative) mg/dL Range/Units 09/12/18 14:05 WBC (4.4-10.8) k/cumm RBC (4.50-6.00) m/cumm Hgb (13.5-17.5) g/dL Hct (40.0-50.0) % MCV (80-95) fL MCH (27.0-33.0) pg MCHC (32.0-36.0) g/dL RDW (11.8-14.1) % Plt Count (130-400) x1000/uL MPV (8.0-11.0) fL Immature Gran % Neutrophils % Lymphocytes % Monocytes % Eosinophils % Basophils % Absolute Neutrophils (1.2-6.7) k/cumm Absolute Lymphocytes (1.2-3.4) k/cumm Absolute Monocytes (0.11-0.7) k/cumm Absolute Eosinophils (0.0-0.7) k/cumm Absolute Basophils (0.0-0.2) k/cumm Sodium (136-145) mmol/L Potassium (3.5-5.1) mmol/L Chloride (98-107) mmol/L Carbon Dioxide (21.0-32.0) mmol/L Anion Gap (3-11) mmol/L BUN (7-18) mg/dL Creatinine (0.70-1.30) mg/dL Estimated GFR/1.73 m2 (mL/min/1.73m2) Glucose (70-100) mg/dL Lactate (0.6-1.4) mmol/L Calcium (8.5-10.1) mg/dL Total Bilirubin (0.2-1.0) mg/dL AST (15-37) U/L ALT (12-78) U/L Alkaline Phosphatase (46-116) U/L Total Protein (6.4-8.2) g/dL Albumin (3.4-5.0) g/dL Urine Color (Yellow) Yellow Urine Clarity Clear Urine pH (5-8) 5.5 Ur Specific [place] (1.005-1.025) 1.020 Urine Protein (Negative) mg/dL 100 H Urine Ketones (Negative) mg/dL Negative Urine Blood (Negative) Trace-intact H Urine Nitrite (Negative) Negative Urine Bilirubin (Negative) Negative Urine Urobilinogen (Up TO 0.2) EU/dL 0.2 Ur Leukocyte Esterase (Negative) Negative Urine Glucose (Negative) mg/dL Negative
[2018-09-12] MEDS: Insulin REGULAR-Human 100 UNITS/ML UNIT 10 UNITS SC (14:44)
[2018-09-12 14:46] LABS: Bacteria Few HPF (Negative); C & S Indicated? No; Casts Negative LPF (Negative); Crystals Negative HPF (Negative); Epithelial Cells Negative HPF (Negative); Mucus Negative (Negative); WBC 0-2 HPF (0-5)
[2018-09-12] MEDS: Sodium Bicarbonate 50 MEQ/50 ML SYR 25 MEQ IVP (14:46)
[2018-09-12] MEDS: Calcium Gluconate 4.65 MEQ/10 ML VIAL 4.65 MG IVP (14:47)
[2018-09-12] MEDS: Normal Saline 1,000 ML 1000 ML IV (14:47)
--- NOTE | 2018-09-12 15:20 | DI.CT_ITS ---
SYMPTOM/DIAGNOSIS: PAIN, SWELLING RT LOWER ABD ABDOMEN AND PELVIC CT: CT scan of the abdomen and pelvis was performed without intravenous or oral contrast. This may limit the examination of the abdominal organs and bowel. There is mild atelectasis or scarring seen in the lung bases. The unenhanced liver is unremarkable. The gallbladder is unremarkable. No biliary ductal dilatation is seen. The spleen and adrenal glands are unremarkable. There is fatty atrophy of the pancreas. There are again seen atrophic [place] kidneys. There is a left renal pelvic transplant. No evidence of hydronephrosis is seen. Reproductive organs are unremarkable. There is atherosclerosis of the abdominal aorta but no aneurysmal dilatation is present. No significant abdominal or pelvic adenopathy, ascites or pneumoperitoneum is seen. The bowel shows no evidence of obstruction. There is a question of mild thickening of the wall of the distal sigmoid colon and rectum. This is limited due to lack of oral contrast. No findings to suggest an acute appendicitis are present. There is soft tissue stranding seen in the subcutaneous tissues along the anterior abdominal wall, particularly on the right. This may reflect cellulitis. There is a subcutaneous scar seen in the left lateral abdominal wall. Degenerative changes are seen in the spine. IMPRESSION: 1. Soft tissue stranding in the subcutaneous fat along the anterior abdominal wall which may reflect cellulitis. No definite focal fluid collection is seen to suggest an abscess. 2. Question of thickening of the wall of the distal sigmoid colon and rectum. Colitis cannot be excluded. Evaluation of the bowel is limited due to lack of oral contrast.
[2018-09-12] MEDS: VANCOMYCIN 1,000 MG in Normal Saline 250 ML 166.6666 MG IVPB (16:31)
[2018-09-12 16:51] LABS: Anion Gap 8.2 mmol/L (3-11); BUN 34 mg/dL (7-18); CO2 23.8 mmol/L (21.0-32.0); CREATININE 2.12 mg/dL (0.70-1.30); Calcium 8.8 mg/dL (8.5-10.1); Chloride 107 mmol/L (98-107); Estimated GFR 31.51 (mL/min/1.73m2); Glucose 325 mg/dL (70-100); Potassium 5.4 mmol/L (3.5-5.1); Sodium 139 mmol/L (136-145)
--- NOTE | 2018-09-12 16:55 | DI.VRAD_ITS ---
EXAM: CT Abdomen and Pelvis Without Contrast EXAM DATE/TIME: 09/12/2018 3:21 PM CLINICAL HISTORY: 63 years old, male; Signs and symptoms; Other: Erythema lt lower abd TECHNIQUE: Axial computed tomography images of the abdomen and pelvis without contrast. All CT scans at this facility use at least one of these dose optimization techniques: automated exposure control; mA and/or kV adjustment per patient size (includes targeted exams where dose is matched to clinical indication); or iterative reconstruction. Coronal and sagittal reformatted images were created and reviewed. Technologist notes: Main COMPARISON: CT ABD PELVIS WO CONTRAST 12/19/2016 6:56 PM FINDINGS: Lower thorax: Mild bibasilar dependent atelectasis of the lung bases. ABDOMEN: Liver: Unremarkable. Gallbladder and bile ducts: Unremarkable. No ductal dilation. Pancreas: Fatty atrophy of the pancreas. Spleen: Unremarkable. Adrenals: Unremarkable. Kidneys and ureters: Atrophy of the bilateral [place] kidneys. Left pelvic transplant kidney. No hydronephrosis. Stomach and bowel: Possible wall thickening of the distal sigmoid colon and rectum, though limited evaluation without oral contrast. Appendix: No evidence of appendicitis. PELVIS: Bladder: Unremarkable. Reproductive: Unremarkable as visualized. ABDOMEN and PELVIS: Intraperitoneal space: No pneumoperitoneum. No significant fluid collection. Bones/joints: Multilevel degenerative changes of the visualized spine. No acute osseous lesion or fracture. Soft tissues: Subcutaneous fat stranding along the superficial anterior abdominal wall. Small fat containing left inguinal hernia. Vasculature: Atherosclerotic calcifications of the aorta and major branches. Lymph nodes: No enlarged lymph nodes. IMPRESSION: 1. Subcutaneous fat stranding along the superficial anterior abdominal wall, possibly reflecting cellulitis. 2. Possible wall thickening of the distal sigmoid colon and rectum, though limited evaluation without oral contrast. Colitis cannot be excluded. 3. Other chronic findings, as above. Dictated and Authenticated by: Devin Garcia MD. Ordering:CARLI Almanza MD
== END 2018-09-12 19:25 | disposition other institution (70) ==
LOC: ER 16:51
PROVIDERS: Emergency Provider Student in an Organized Health Care Education/Training Program; PCP Family Medicine
DX: R50.9 Fever, unspecified (principal); R11.2 Nausea with vomiting, unspecified; E87.5 Hyperkalemia; J44.9 Chronic obstructive pulmonary disease, unspecified; Z87.891 Personal history of nicotine dependence; E11.22 Type 2 diabetes mellitus with diabetic chronic kidney disease; Z79.4 Long term (current) use of insulin; I12.9 Hypertensive chronic kidney disease with stage 1 through stage 4 chronic kidney disease, or unspecified chronic kidney disease; N18.9 Chronic kidney disease, unspecified; Z94.0 Kidney transplant status
CPT/HCPCS: 36415; 80048; 80053; 87040; 93005; 96361; 96365; 96372; 96375; 99285; 71046; 74176; 81003; 81015; 83605; 85025; 93010; J0610

== ENCOUNTER 2018-11-03 10:00 | Outpatient (CLI) | payer OTHER, SELFPAY ==
[2018-11-03 11:59] LABS: HCT 37.9 % (40.0-50.0); HGB 11.6 g/dL (13.5-17.5); Mean Corp. HGB Concentration 30.6 g/dL (32.0-36.0); Mean Corpuscular Hemoglobin 29.7 pg (27.0-33.0); Mean Corpuscular Volume 97.2 fL (80-95); Mean Platelet Volume 8.7 fL (8.0-11.0); Platelet Count 223 x1000/uL (130-400); RBC Distribution Width 14.6 % (11.8-14.1); White Blood Cell Count 7.24 k/cumm (4.4-10.8)
[2018-11-03 12:08] LABS: Hemoglobin A1C 8.1 % (4.5-6.2)
[2018-11-03 12:47] LABS: ALT 23 U/L (12-78); AST 15 U/L (15-37); Albumin 2.9 g/dL (3.4-5.0); Alkaline Phosphatase 160 U/L (46-116); Anion Gap 9.5 mmol/L (3-11); BUN 30 mg/dL (7-18); Bilirubin, Total 0.4 mg/dL (0.2-1.0); CO2 24.5 mmol/L (21.0-32.0); CREATININE 2.21 mg/dL (0.70-1.30); Chloride 107 mmol/L (98-107); Estimated GFR 30.03 (mL/min/1.73m2); Glucose 282 mg/dL (70-100); Magnesium 1.5 mg/dL (1.8-2.4); Potassium 5.1 mmol/L (3.5-5.1); Sodium 141 mmol/L (136-145); Total Protein 7.6 g/dL (6.4-8.2); Uric Acid 7.7 mg/dL (3.5-7.2)
[2018-11-03 14:25] LABS: Cholesterol 107 mg/dL (50-200)
[2018-11-04 12:16] LABS: Tacrolimus 5.3 ng/ml
== END 2018-11-03 10:20 ==
PROVIDERS: PCP Family Medicine; Referring Provider Internal Medicine Nephrology; Visit Provider Family Medicine
DX: E11.9 Type 2 diabetes mellitus without complications (principal); Z94.0 Kidney transplant status; Z79.899 Other long term (current) drug therapy
CPT/HCPCS: 36415; 80053; 85027; 80197; 82465; 83036; 83735; 84100; 84550

== ENCOUNTER 2018-11-12 22:38 | Inpatient (IN) | payer OTHER, SELFPAY ==
[2018-11-12 22:42] VITALS: BP 160/80; PULSE 99; RESP 18; TEMP 39.2; O2SAT 95
--- NOTE | 2018-11-12 22:49 | W.ED.GENAD ---
Discharge Plan Disposition Patient Disposition: [facility] INPATIENT Condition: Stable Discharge Details Chief Complaint: Abd Prob Clinical Impression: Fever, Pneumonia Primary Care Provider: Violetta Sanford ED Provider: Maciej Teran Home Meds and New Rx's Prescriptions: No Action mycophenolate mofetil [CellCept] 250 mg capsule 500 mg PO BID RF: 0 folic acid 1 mg tablet 1 mg PO DAILY RF: 0 Humalog KwikPen Insulin 100 unit/mL insulin pen See Patient Comments SC BID RF: 0 Victoza 2-Nigel 0.6 mg/0.1 mL (18 mg/3 mL) pen injector 1.8 mg SC DAILY RF: 0 glucagon HCl 1 mg recon soln 1 mg IM ONCE PRNRF: 0 propranolol [Inderal LA] 160 MG capsule,extended release 24 hr 160 mg PO TID RF: 0 aspirin [Aspirin Low Dose] 81 MG tablet,delayed release (DR/EC) 81 mg PO DAILY RF: 0 omeprazole [Prilosec] 40 MG capsule,delayed release(DR/EC) 40 mg PO DAILY RF: 0 montelukast 10 MG tablet 10 mg PO DAILY RF: 0 multivitamin [Daily Multi-Vitamin] 1 EACH tablet 1 ea PO DAILY RF: 0 tacrolimus [Prograf] 1 MG capsule 1 mg PO BID RF: 0 gabapentin 300 MG capsule 900 mg PO TID RF: 0 cholecalciferol (vitamin D3) [Vitamin D3] 2,000 UNIT tablet 2,000 unit PO DAILY RF: 0 fluticasone propionate 16 GM spray,suspension 2 spry NS DAILY PRNRF: 0 albuterol sulfate [ProAir HFA] 200 PUFF HFA aerosol inhaler 2 puff Inhalation PRN PRNRF: 0 albuterol sulfate [Ventolin HFA] 90 mcg/actuation Hfa Aerosol Inhaler 90 mcg Inhalation RF: 0 Stiolto Respimat 2.5-2.5 mcg/actuation Mist 2.5 mcg Inhalation DAILY RF: 0 mycophenolate mofetil [CellCept] 250 mg Capsule 500 mg PO BID RF: 0 Levemir FlexTouch U-100 Insuln 300 UNITS/3 ML insulin pen 80 units Sub-Q QPM RF: 0 Levemir FlexTouch U-100 Insuln 300 UNITS/3 ML insulin pen 50 units Sub-Q QAM RF: 0 atorvastatin [Lipitor] 20 MG tablet 1 tab PO DAILY RF: 0 losartan 25 MG tablet 0.5 tab PO DAILY RF: 0 Medical Decision Making This is a 63-year-old male with a past medical history of diabetes, subsequent kidney disease resulting in nephrectomy and renal transplant. He is on CellCept and tacrolimus. He presents today for evaluation of chills. Symptoms started this afternoon gradually worsened throughout the day. Review of systems is also positive for mild abdominal pain, nausea and a mild cough. Clearly there is concern for infectious etiology, we will evaluate for pneumonia, intra-abdominal process, UTI. Exam shows no signs of significant decubitus ulcer or other abnormality. He is febrile, we will give antipyretics, reassess. Of note he does have multiple medical allergies, however some are relatively benign. Upon his last visit he was given meropenem and vancomycin. 12:01 AM Patient's laboratory workup has returned, he does demonstrate evidence of acute kidney injury compared to normal, no significant white count or bandemia. No significant left shift. Electrolytes demonstrate a potassium of 5.5, which is level he has been have before, but it is definitely higher than his normal. EKG does show peaking of his T waves which does appear to be prior EKGs as well however as a precaution, we will give insulin, bicarb, calcium gluconate and albuterol for treatment of his hyperkalemia. There is minimal less than 1 mm elevation in the anterior leads, however this also appears to be the case on prior EKGs. The patient has no chest pain at this time. EKG inconsistent with STEMI. We will add a troponin. We will get the CT scan without contrast to rule out any acute intra-abdominal process. 1:03 AM Troponin has returned normal. CT scan is negative for acute process. No evidence of concerning intra-abdominal lesion. There was an initial note of some skin changes on CT however when I called the radiologist and we reviewed images together it appears that the skin findings are consistent with prior EKG. Still pending urinalysis at this time. Chest x-ray does show evidence of infiltrate in the left midlung. With the slight creatinine bump, the potassium changes, patient's fever and the evidence of pneumonia on chest x-ray I did contact discussed with him the EKG findings, laboratory workup, imaging findings, and patient's symptoms. He believes that the patient's creatinine bumped and potassium are secondary to his tacrolimus, and recommends hydration. He recommends antibiotics for the pneumonia, did recommend doxycycline however the patient has been admitted in the last 2 months and would qualify for healthcare associated pneumonia especially with his immunocompromise state and his admission within the last 90 days. We will add a aztreonam, hold off on vancomycin as he is getting MRSA coverage with the doxycycline. With the patient's potassium I also did discuss transfer as we have no telemetry beds. He made it very clear to me that it is not [facility]'s protocol to place someone with a potassium of 5.5 on telemetry and he does not think that the patient should be transferred to [facility] at this time for that. He feels that telemetry is peripheral is secondary to the patient's chronic hyperkalemia. He recommends that the patient be admitted here for fluid rehydration and treatment for the pneumonia. He feels that all the patient truly needs for his hyperkalemia is hydration at this time. We have contacted [facility] and they are [facility] and they are full, [facility] and they are full until tomorrow, I have contacted Dr. Thorpe, and discussed this with him, he is requesting that we get a repeat potassium and then reassess. 1:41 AM Patient's repeat potassium demonstrates an improvement with a decrease to 5.3, creatinine has improved by 0.1 points as well. Patient continues to show no dysrhythmias here. I did contact the hospitalist per his request, after review of the lack of other local options, the patient's chronic hyperkalemia, and the improvement with treatment, Dr. Thorpe feels that admission here is appropriate at this time. The patient has already been started on antibiotics. Will continue hydrating. Dr. Thorpe has asked that I place bridging orders at this time, which I will. I have extensively reviewed the treatment plan with the patient. I have addressed all patient concerns at this time. I have also discussed the plan with the admitting physician and they agree with the current assessment and plan and have agreed to assume responsibility for the patient. All parties demonstrate verbal understanding and agreement with our assessment and plan at this time. EKG 23: 50 Rate 103, OR is 276, QTc 445, first-degree AV block, less than 1 mm of repolarization elevation in V2, V3, and lead III. No evidence of tombs stoning, review of EKG from 07/16/16 that showed similar findings. He does have some peaking of his T waves, however this appears to be present in prior EKGs as well. COMPARISON: CT ABDOMEN PELVIS WO 09/12/2018 3:52 PM FINDINGS: ABDOMEN: Liver: No suspicious lesions. Gallbladder and bile ducts: No acute or concerning findings. Pancreas: Unremarkable. Spleen: No suspicious lesions. Adrenals: Unremarkable. No suspicious nodule. Kidneys and ureters: [place] kidneys are atrophic. Left hemipelvis transplant kidney. Stomach and bowel: Unremarkable. No inflammed or dilated loops. Appendix: No evidence of appendicitis. PELVIS: Bladder: Unremarkable as visualized. Reproductive: Unremarkable as visualized. ABDOMEN and PELVIS: Intraperitoneal space: No free air. No significant fluid collection. Bones/joints: No acute fracture. No dislocation. Soft tissues: Anterior abdominal wall has some subcutaneous edema and skin thickening. Vasculature: Unremarkable. Lymph nodes: Unremarkable. IMPRESSION: Anterior abdominal wall subcutaneous edema and skin thickening. Dictated and Authenticated by: Roger Morales MD. Ordering:RANDY Wing MD Comparison: CR XR CHEST 2V PA LATERAL 09/12/2018 1:40 PM Findings: Lungs: Small amount of airspace disease in the left midlung field. Pleural space: Unremarkable. No evidence of pneumothorax. Heart/Mediastinum: Unremarkable. Heart size within normal limits for technique. Bones/joints: Unremarkable. Impression: Small infiltrate left midlung. Dictated and Authenticated by: Roger Morales MD. HPI General Date/Time Provider Initiated Documentation: 11/12/18 22:41. HPI Narrative: This is a 63-year-old male with a past medical history of chronic kidney disease, COPD, bilateral below the knee amputee, coronary artery disease, congestive heart failure, kidney transplant currently on tacrolimus and CellCept who presents today for evaluation of fever. Patient states that this afternoon he began getting chills, which has gradually worsened throughout the day. He does have associated nausea as well as abdominal pain. He denies any vomiting, diarrhea, or dysuria. He does admit to a mild cough. He was admitted on 09/12/18 for vancomycin and meropenem treatment for suspected mild colitis. He denies any other recent admissions or any other recent hospitalizations. He has no other complaints at this time. No other modifying factors. Related Data Home Medications Medication Instructions Recorded Confirmed aspirin [Aspirin Low Dose] 81 mg PO DAILY 10/31/12 11/12/18 montelukast 10 mg PO DAILY tab-cap 10/31/12 11/12/18 omeprazole [Prilosec] 40 mg PO DAILY 10/31/12 11/12/18 propranolol [Inderal LA] 160 mg PO TID 10/31/12 11/12/18 multivitamin [Daily Multi-Vitamin] 1 ea PO DAILY 05/10/13 11/13/18 tacrolimus [Prograf] 1 mg PO BID 06/15/13 11/12/18 gabapentin 900 mg PO TID 10/30/14 11/12/18 albuterol sulfate [ProAir HFA] 2 puff INHALATION PRN PRN 01/16/16 11/12/18 cholecalciferol (vitamin D3) 2,000 unit PO DAILY 01/16/16 11/12/18 [Vitamin D3] fluticasone propionate 2 spry NS DAILY PRN 01/16/16 11/12/18 Levemir FlexTouch U-100 Insuln 50 units SUB-Q QAM pen 07/19/16 11/12/18 Levemir FlexTouch U-100 Insuln 80 units SUB-Q QPM pen 07/19/16 11/13/18 atorvastatin [Lipitor] 1 tab PO DAILY 02/01/17 11/12/18 losartan 0.5 tab PO DAILY 02/01/17 11/12/18 Stiolto Respimat 2.5 mcg INHALATION DAILY 05/04/18 11/12/18 albuterol sulfate [Ventolin HFA] 90 mcg INHALATION 05/04/18 06/12/18 folic acid 1 mg tablet 1 mg PO DAILY 06/12/18 11/12/18 glucagon HCl 1 mg solution for 1 mg IM ONCE PRN 06/12/18 11/12/18 injection insulin lispro (U- 100) 100 See Rx Instructions SC BID 06/12/18 11/12/18 unit/mL subcutaneous pen liraglutide 0.6 mg/0.1 mL (18 mg/3 1.8 mg SC DAILY ml 06/12/18 11/12/18 mL) subcutaneous pen injector mycophenolate mofetil 250 mg 500 mg PO BID 06/12/18 11/12/18 capsule mycophenolate mofetil [CellCept] 500 mg PO BID 11/12/18 11/12/18 Previous Rx's Medication Instructions Recorded Levemir FlexTouch U-100 Insuln 50 units SUB-Q QAM pen 07/19/16 Levemir FlexTouch U-100 Insuln 80 units SUB-Q QPM pen 07/19/16 Allergies Allergy/AdvReac Type Severity Reaction Status Date / Time levofloxacin Allergy Mild Unverified 11/12/18 23:01 sulfamethoxazole Allergy Mild Unverified 11/12/18 23:01 [From Bactrim] trimethoprim [From Bactrim] Allergy Mild Unverified 11/12/18 23:01 clindamycin Allergy Skin Rash Verified 11/12/18 23:01 ibuprofen Allergy Verified 11/12/18 23:01 Penicillins Allergy SWELLING Verified 11/12/18 23:01 tree nut Allergy Verified 11/12/18 23:01 lisinopril AdvReac KIDNEY Verified 11/12/18 23:01 SHUT DOWN yaneth inhibitors Allergy Mild Skin Rash Uncoded 11/12/18 23:01 CATS & BIRDS AdvReac Intermediate WHEEZING Uncoded 11/12/18 23:01 General Stated Complaint: Abd Prob RADHA: 2 Review of Systems Review of Systems All systems reviewed & are unremarkable except as noted in HPI and below PFSH Social History Smoking/Tobacco Use Status: Former Tobacco Use Alcohol Intake: never Drug use: Never Do you feel safe at home: Yes Do you feel safe in your relationship?: Yes Exam Narrative Exam Narrative: 1.Const: Well-nourished, Well-developed, appearing stated age 2.Eyes: PERRL, no conjunctival injection, and symmetrical lids. 3.ENT: Atraumatic external nose and ears. Moist MM. Neck: Symmetric, trachea midline, No thyromegaly. 4.CVS: +S1/S2, No murmurs or gallops. Peripheral pulses 2+ and equal in all extremities. Brisk capillary refill in all extremities. 5.RESP: Unlabored respiratory effort. Clear to auscultation bilaterally. No wheezes rales or rhonchi 6.GI: Soft,Nondistended, No hepatosplenomegaly. No guarding or rebound. Mild tenderness on palpation of his abdomen throughout. No focal component. No groin tenderness. 7.MSK: Normocephalic/Atraumatic, bilateral below the knee amputee no cyanosis or clubbing, Normal movement of all extremities 8.Skin: Warm, Dry. No rashes or lesions. 9.Neuro: research center partner II-XII grossly intact. Sensation grossly intact, no focal neurologic deficits. 10.Psych: (AAO) x3. Appropriate mood and affect Course Vital Signs Temperature 39.2 C H 11/12/18 22:42 Pulse 99 H 11/12/18 22:42 Respiratory Rate 18 11/12/18 22:42 Blood Pressure 160/80 H 11/12/18 22:42 Pulse Oximetry 95 11/12/18 22:42 Temperature 39.2 C H 11/12/18 22:42 Temperature Source Temporal Artery Scan 11/12/18 22:42 Pulse 99 H 11/12/18 22:42 Respiratory Rate 18 11/12/18 22:42 Respiratory Effort 11/12/18 22:42 Blood Pressure 160/80 H 11/12/18 22:42 Blood Pressure Position Sitting 11/12/18 22:42 Pulse Oximetry 95 11/12/18 22:42 Oxygen Delivery Method Room Air 11/12/18 22:42 Oxygen Flow Rate 0 11/12/18 22:42 Lab/Test Results Lab/Test Results: 11/12/18 22:48 Blood Blood Culture - Pending 11/12/18 22:48 Blood Blood Culture - Pending
[2018-11-12 23:07] LABS: Abs Immature Grans 0.01 k/cumm (0.0-0.09); Absolute Basophil Count 0.04 k/cumm (0.0-0.2); Absolute Lymphocyte Count 2.07 k/cumm (1.2-3.4); Absolute Monocyte Count 0.71 k/cumm (0.11-0.7); Absolute Neutrophil Count 6.85 k/cumm (1.2-6.7); Basophils % 0.4; HCT 38.3 % (40.0-50.0); Immature Grans % 0.1; Lymphocytes % 21.2; Mean Corp. HGB Concentration 31.3 g/dL (32.0-36.0); Mean Corpuscular Hemoglobin 30.5 pg (27.0-33.0); Mean Corpuscular Volume 97.5 fL (80-95); Mean Platelet Volume 8.3 fL (8.0-11.0); Monocytes % 7.3; Platelet Count 216 x1000/uL (130-400); RBC 3.93 m/cumm (4.50-6.00); RBC Distribution Width 14.7 % (11.8-14.1); White Blood Cell Count 9.78 k/cumm (4.4-10.8)
--- NOTE | 2018-11-12 23:10 | DI.COMBO_ITS ---
SYMPTOM/DIAGNOSIS: FEVER, ABD PAIN, KIDNEY TRANSPLANT, FEBRILE PORTABLE AP CHEST: Comparison is made with 09/12/18. The heart size is within normal limits. There is a question of an area of increased density in the left mid lung versus artifact. No effusions or pulmonary edema is visible. IMPRESSION: Limited exam. Question of left sided infiltrate. ABDOMEN AND PELVIC CT: A noncontrast exam was performed. There some patchy densities in the left lower lobe which could represent atelectasis versus pneumonia. The heart size is normal. There is mitral valvular calcification. The liver shows fatty infiltration. The gallbladder, spleen and adrenals are unremarkable. Both kidneys are atrophic. The pancreas shows fatty replacement. There is a left lower quadrant renal transplant. There is no hydronephrosis. The prostate is enlarged. The bladder is unremarkable. There are fatty containing inguinal hernias. There is soft tissue stranding in the anterior subcutaneous fat. There is no evidence of ascites. There are a few scattered diverticula. No diverticulitis or bowel dilatation is seen. IMPRESSION: Question of left lower lobe infiltrate versus atelectasis. Soft tissue edema is seen in the anterior abdominal wall. Left lower quadrant renal transplant shows no evidence of hydronephrosis.
[2018-11-12 23:20] LABS: ALT 28 U/L (12-78); AST 20 U/L (15-37); Albumin 3.1 g/dL (3.4-5.0); Alkaline Phosphatase 159 U/L (46-116); Anion Gap 11.2 mmol/L (3-11); BUN 31 mg/dL (7-18); Bilirubin, Total 0.7 mg/dL (0.2-1.0); CO2 24.8 mmol/L (21.0-32.0); CREATININE 2.54 mg/dL (0.70-1.30); Chloride 102 mmol/L (98-107); Estimated GFR 25.58 (mL/min/1.73m2); Glucose 282 mg/dL (70-100); Potassium 5.5 mmol/L (3.5-5.1); Sodium 138 mmol/L (136-145); Total Protein 8.7 g/dL (6.4-8.2)
[2018-11-12 23:23] VITALS: PULSE 105; RESP 27; O2SAT 95
[2018-11-12 23:30] VITALS: PULSE 102; RESP 21; O2SAT 95
[2018-11-12 23:31] VITALS: BP 144/58; PULSE 100; PULSE 103; RESP 14; O2SAT 96
[2018-11-12 23:40] VITALS: PULSE 102; RESP 21; O2SAT 97
--- NOTE | 2018-11-12 23:47 | DI.VRAD_ITS ---
EXAM: XR Chest, 1 View EXAM DATE/TIME: 11/12/2018 10:49 PM CLINICAL HISTORY: 63 years old, male; Signs and symptoms; Fever TECHNIQUE: Imaging protocol: XR of the chest, 1 view. COMPARISON: CR XR CHEST 2V PA LATERAL 09/12/2018 1:40 PM FINDINGS: Lungs: Small amount of airspace disease in the left midlung field. Pleural space: Unremarkable. No evidence of pneumothorax. Heart/Mediastinum: Unremarkable. Heart size within normal limits for technique. Bones/joints: Unremarkable. IMPRESSION: Small infiltrate left midlung. Dictated and Authenticated by: Roger Morales MD. Ordering:RANDY Wing MD
[2018-11-13] VITALS (59 sets, daily range): BP systolic 116–168; BP diastolic 48–84; PULSE 71–102; RESP 1–25; TEMP 36.9–39; O2SAT 92–100
[2018-11-13] MEDS: Albuterol 2.5 MG/3 ML INH SOLN VIAL 7.5 MG UPD (00:09)
--- NOTE | 2018-11-13 00:11 | DI.VRAD_ITS ---
EXAM: CT Abdomen and Pelvis Without Contrast EXAM DATE/TIME: 11/12/2018 11:43 PM CLINICAL HISTORY: 63 years old, male; Generalized; Prior surgery; Surgery date: 6+ months; Surgery type: Kidney transplant 10 yrs ago. ; Patient HX: Abdominal pain, febrile. TECHNIQUE: Imaging protocol: Axial computed tomography images of the abdomen and pelvis without contrast. Coronal and sagittal reformatted images were created and reviewed. Radiation optimization: All CT scans at this facility use at least one of these dose optimization techniques: automated exposure control; mA and/or kV adjustment per patient size (includes targeted exams where dose is matched to clinical indication); or iterative reconstruction. COMPARISON: CT ABDOMEN PELVIS WO 09/12/2018 3:52 PM FINDINGS: ABDOMEN: Liver: No suspicious lesions. Gallbladder and bile ducts: No acute or concerning findings. Pancreas: Unremarkable. Spleen: No suspicious lesions. Adrenals: Unremarkable. No suspicious nodule. Kidneys and ureters: [place] kidneys are atrophic. Left hemipelvis transplant kidney. Stomach and bowel: Unremarkable. No inflammed or dilated loops. Appendix: No evidence of appendicitis. PELVIS: Bladder: Unremarkable as visualized. Reproductive: Unremarkable as visualized. ABDOMEN and PELVIS: Intraperitoneal space: No free air. No significant fluid collection. Bones/joints: No acute fracture. No dislocation. Soft tissues: Anterior abdominal wall has some subcutaneous edema and skin thickening. Vasculature: Unremarkable. Lymph nodes: Unremarkable. IMPRESSION: Anterior abdominal wall subcutaneous edema and skin thickening. Dictated and Authenticated by: Roger Morales MD. Ordering:RANDY Wing MD
[2018-11-13] MEDS: Normal Saline 500 ML 1000 ML IV (00:15)
[2018-11-13] MEDS: Sodium Bicarbonate 50 MEQ/50 ML SYR 25 MEQ IVP (00:17)
[2018-11-13 00:23] LABS: Troponin I 0.03 ng/mL (0.00-0.06)
[2018-11-13] MEDS: Insulin REGULAR-Human 100 UNITS/ML UNIT SC (00:43)
[2018-11-13] MEDS: DOXYCYCLINE 100 MG in Normal Saline 100 ML IVPB ×2 (01:18→12:52)
[2018-11-13 01:21] LABS: Anion Gap 8.5 mmol/L (3-11); BUN 32 mg/dL (7-18); CO2 25.5 mmol/L (21.0-32.0); CREATININE 2.47 mg/dL (0.70-1.30); Calcium 8.7 mg/dL (8.5-10.1); Chloride 104 mmol/L (98-107); Estimated GFR 26.41 (mL/min/1.73m2); Glucose 241 mg/dL (70-100); Potassium 5.3 mmol/L (3.5-5.1); Sodium 138 mmol/L (136-145)
[2018-11-13 01:36] LABS: Bilirubin Negative (Negative); Blood Trace-lysed (Negative); Clarity Clear; Glucose 100 mg/dL (Negative); Ketones Negative (Negative); Leukocyte Esterase Negative (Negative); Nitrite Negative (Negative); Urobilinogen 0.2 EU/dL (Up TO 0.2); pH 5.5 (5-8)
[2018-11-13] MEDS: AZTREONAM 2,000 MG in Normal Saline 100 ML 200 MG IVPB ×3 (01:37→18:09)
[2018-11-13 01:42] LABS: Bacteria Rare HPF (Negative); Crystals Negative HPF (Negative); Epithelial Cells Rare HPF (Negative); Mucus Trace (Negative); RBC 0-2 (0-2)
[2018-11-13 01:43] LABS: C & S Indicated? C&S Done As Ordered; Casts Negative LPF (Negative)
[2018-11-13] MEDS: Acetaminophen 500 MG TAB 1000 MG PO (01:44)
[2018-11-13] MEDS: Normal Saline 1,000 ML 1000 ML IV (02:09)
--- NOTE | 2018-11-13 05:27 | W.PM.HP.N ---
Date of service: 11/13/18 Time of Service: 05:28 Assessment and Plan (1) Pneumonia: Start date: 11/12/18 Current visit: Yes Status: Acute This is a 63-year-old gentleman presenting with fever, mild cough and mild abdominal symptoms who is immunocompromised status post renal transplant on immunosuppressants. He states that he usually has infections about 3 times a year. He is compromised by his bilateral BKA, uncontrolled diabetes and morbid obesity. Imaging did reveal a left mid lung field pneumonia as the probable cause of his acute symptoms with fever and he was admitted for antibiotic therapy with doxycycline and aztreonam. Follow-up imaging will be done as required watching closely for fluid overload with patient to be hydrated for mild dehydration with CKD 3. His hyperkalemia will be observed with hydration after being treated more aggressively in the ED. If he worsens consider closer cardiac monitoring with telemetry but presently the patient was admitted without telemetry being stable and not severely hyperkalemic and telemetry not being available at this hospital upon admission. [facility] transplant team did not except the patient stating that this level of hyperkalemia did not require telemetry at their facility. He does have a history of CAD though he states that he does not have heart failure or significant CAD and is without symptoms. Qualifiers: Laterality: left Lung location: lower lobe of lung (2) Hyperkalemia: Current visit: No Status: Chronic Observe as we gently hydrate with nonaggressive therapy at this time. If this worsens, patient needs to be monitored more closely with cardiac monitoring if available. He is a full code. (3) Chronic kidney disease: Current visit: No Status: Chronic Slightly worsened and responding to IV hydration which will be continued with caution. Qualifiers: Chronic kidney disease stage: stage 3 (moderate) Qualified Code(s): N18.3 - Chronic kidney disease, stage 3 (moderate) (4) Kidney transplant recipient: Current visit: No Status: Resolved On immunosuppressants with the transplant specialist from [facility] suggesting he may want adjustment of his immunosuppressant Prograf which may be worsening his CKD. This can be discussed as an outpatient with follow-up with nephrology. History of Present Illness Chief Complaint: Chills with fever Narrative: This is a 63-year-old well-controlled diabetic gentleman who is a status post renal transplant on immune suppressants with bilateral BKA and prostheses who does ambulate at home living with his and mother presented to ED from home with chills and fever and mild abdominal pain with a cough and nausea. He had a recent hospitalization in August of this year for abdominal cellulitis which with review of the x-ray according to the ED physician was over read. He does have abdominal tenderness over the right side chronically from his injections and he often does have fever and is immunocompromised status post renal transplant for renal failure associated with uncontrolled diabetes mellitus. He does continue to have CKD with hyperkalemia chronically and did require IV fluid resuscitation with calcium gluconate, sodium bicarb both IV and regular insulin subcu along with nebulizer treatments in the ED for treatment of his hyperkalemia which slightly improved not requiring telemetry at this hospital during treatment of his pneumonia which was found on x-ray. CT scan of the abdomen continued to reveal some abdominal wall edema which probably is chronic. Patient does complain of increased weakness recently with his acute illness and had problems sitting up in bed during my exam. He chronically has a cough and is on respiratory inhalers or rescue therapy being a previous smoker. Denies any change in his bowel habits though he does have nausea and he has been eating fairly well. He has not lost weight. He has no history of heart failure though this is on his problem list along with CAD and is having no chest pain, shortness of breath or edema. He does have a chronic tremor with no other focal neurological complaints. He denies any skin breakdown. He has no complaints. Pertinent review of systems otherwise unrevealing. Review of Systems Review of Systems 13 point review of systems otherwise unrevealing or stable as per HPI. [facility] Medical History Anxiety and depression (Acute) Erectile dysfunction (Acute) Gastroparesis diabeticorum (Acute) Hydrocele (Acute) Hyperlipidemia (Acute) Intention tremor (Acute) Lumbar back pain (Acute) Macrocytic anemia (Acute) Sciatica (Acute) Stage 3 severe COPD by GOLD classification (Acute) Tricuspid insufficiency (Acute) Diabetes mellitus (Chronic) HTN (hypertension) (Chronic) MELISSA (obstructive sleep apnea) (Chronic) Obesity (Chronic) COPD (chronic obstructive pulmonary disease) GERD (gastroesophageal reflux disease) LEFT FOREARM AV FISTULA MELISSA (obstructive sleep apnea) Surgical History Hx of amputation below knee (Acute) Kidney transplant recipient (Acute) Colonoscopy - MAC (02/01/17) EGD - MAC (04/02/16) Family History Brother Personal history of malignant neoplasm Social History Smoking/Tobacco Use Status: Former Tobacco Use Alcohol Intake: never Drug use: Never Do you feel safe at home: Yes Do you feel safe in your relationship?: Yes Meds Home Medications Medication Instructions Recorded Confirmed Type aspirin [Aspirin Low Dose] 81 mg PO DAILY 10/31/12 11/12/18 History montelukast 10 mg PO DAILY tab-cap 10/31/12 11/12/18 History omeprazole [Prilosec] 40 mg PO DAILY 10/31/12 11/12/18 History propranolol [Inderal LA] 160 mg PO TID 10/31/12 11/12/18 History multivitamin [Daily Multi-Vitamin] 1 ea PO DAILY 05/10/13 11/13/18 History tacrolimus [Prograf] 1 mg PO BID 06/15/13 11/12/18 History gabapentin 900 mg PO TID 10/30/14 11/12/18 History albuterol sulfate [ProAir HFA] 2 puff INHALATION PRN PRN 01/16/16 11/12/18 History cholecalciferol (vitamin D3) 2,000 unit PO DAILY 01/16/16 11/12/18 History [Vitamin D3] fluticasone propionate 2 spry NS DAILY PRN 01/16/16 11/12/18 History Levemir FlexTouch U-100 Insuln 50 units SUB-Q QAM pen 07/19/16 11/12/18 Rx Levemir FlexTouch U-100 Insuln 80 units SUB-Q QPM pen 07/19/16 11/13/18 Rx atorvastatin [Lipitor] 1 tab PO DAILY 02/01/17 11/12/18 History losartan 0.5 tab PO DAILY 02/01/17 11/12/18 History Stiolto Respimat 2.5 mcg INHALATION DAILY 05/04/18 11/12/18 History albuterol sulfate [Ventolin HFA] 90 mcg INHALATION 05/04/18 06/12/18 History folic acid 1 mg tablet 1 mg PO DAILY 06/12/18 11/12/18 History glucagon HCl 1 mg solution for 1 mg IM ONCE PRN 06/12/18 11/12/18 History injection insulin lispro (U- 100) 100 See Rx Instructions SC BID 06/12/18 11/12/18 History unit/mL subcutaneous pen liraglutide 0.6 mg/0.1 mL (18 mg/3 1.8 mg SC DAILY ml 06/12/18 11/12/18 History mL) subcutaneous pen injector mycophenolate mofetil 250 mg 500 mg PO BID 06/12/18 11/12/18 History capsule mycophenolate mofetil [CellCept] 500 mg PO BID 11/12/18 11/12/18 History Allergies Allergy/AdvReac Type Severity Reaction Status Date / Time levofloxacin Allergy Mild Unverified 11/12/18 23:01 sulfamethoxazole Allergy Mild Unverified 11/12/18 23:01 [From Bactrim] trimethoprim [From Bactrim] Allergy Mild Unverified 11/12/18 23:01 clindamycin Allergy Skin Rash Verified 11/12/18 23:01 ibuprofen Allergy Verified 11/12/18 23:01 Penicillins Allergy SWELLING Verified 11/12/18 23:01 tree nut Allergy Verified 11/12/18 23:01 lisinopril AdvReac KIDNEY Verified 11/12/18 23:01 SHUT DOWN yaneth inhibitors Allergy Mild Skin Rash Uncoded 11/12/18 23:01 CATS & BIRDS AdvReac Intermediate WHEEZING Uncoded 11/12/18 23:01 Exam Narrative Exam Narrative: General: This is a morbidly obese gentleman appearing older than stated age, drowsy but alert and oriented x3 when aroused. Is in no acute distress. HEENT: Normocephalic with eyes revealing pupils equal and reactive to light symmetrically, extraocular movement intact and sclera anicteric. Oropharynx with dry oral mucosa. Ears normal. Neck: Supple without JVD. Lungs: Inspiratory coarse crackles and rhonchi over the left hemithorax, clear on the right with no focalizing rales bilaterally. Bronchovesicular breath sounds diffusely but no increased expiratory phase and no expiratory wheeze bilaterally. Heart: Tachycardic with normal rhythm. No appreciable murmurs or gallops. Distant heart sounds. Back: Stooped posture without CVA tenderness. Abdomen: Obese contour, soft and slightly tender over the right abdomen with erythema and increased warmth to touch over the right abdomen which patient states is chronic. There is an atrophic large scar over his left lower abdomen is previous renal transplant. Bowel sounds are positive in all quadrants. Genitalia/rectal: Exam deferred. Extremities: Bilateral BKA with stump is clean without edema or skin breakdown. No clubbing, cyanosis or pitting edema all extremities. Skin: Pale, warm and dry. No rashes noted. Erythema over the right abdomen as mentioned with no fluctuance. Neuro: Coarse intention tremor patient attempted to use the trapeze to set up otherwise no resting tremor and no focalizing motor deficits. Patient is generally weak from his acute illness. Cranial nerves II through XII grossly intact. Psych: Flattened affect with good eye contact monotonous slow speech. Recent and remote memory appear to be intact. Patient has normal intelligence. Results Imaging Imaging Studies: EXAM DATE/TIME: 11/12/2018 11:43 PM CLINICAL HISTORY: 63 years old, male; Generalized; Prior surgery; Surgery date: 6+ months; Surgery type: Kidney transplant 10 yrs ago. ; Patient HX: Abdominal pain, febrile. TECHNIQUE: Imaging protocol: Axial computed tomography images of the abdomen and pelvis without contrast. Coronal and sagittal reformatted images were created and reviewed. Radiation optimization: All CT scans at this facility use at least one of these dose optimization techniques: automated exposure control; mA and/or kV adjustment per patient size (includes targeted exams where dose is matched to clinical indication); or iterative reconstruction. COMPARISON: CT ABDOMEN PELVIS WO 09/12/2018 3:52 PM FINDINGS: ABDOMEN: Liver: No suspicious lesions. Gallbladder and bile ducts: No acute or concerning findings. Pancreas: Unremarkable. Spleen: No suspicious lesions. Adrenals: Unremarkable. No suspicious nodule. Kidneys and ureters: Three Affiliated kidneys are atrophic. Left hemipelvis transplant kidney. Stomach and bowel: Unremarkable. No inflammed or dilated loops. Appendix: No evidence of appendicitis. PELVIS: Bladder: Unremarkable as visualized. Reproductive: Unremarkable as visualized. ABDOMEN and PELVIS: Intraperitoneal space: No free air. No significant fluid collection. Bones/joints: No acute fracture. No dislocation. Soft tissues: Anterior abdominal wall has some subcutaneous edema and skin thickening. Vasculature: Unremarkable. Lymph nodes: Unremarkable. IMPRESSION: Anterior abdominal wall subcutaneous edema and skin thickening. Dictated and Authenticated by: Roger Morales MD. EXAM: XR Chest, 1 View EXAM DATE/TIME: 11/12/2018 10:49 PM CLINICAL HISTORY: 63 years old, male; Signs and symptoms; Fever TECHNIQUE: Imaging protocol: XR of the chest, 1 view. COMPARISON: CR XR CHEST 2V PA LATERAL 09/12/2018 1:40 PM FINDINGS: Lungs: Small amount of airspace disease in the left midlung field. Pleural space: Unremarkable. No evidence of pneumothorax. Heart/Mediastinum: Unremarkable. Heart size within normal limits for technique. Bones/joints: Unremarkable. IMPRESSION: Small infiltrate left midlung. Dictated and Authenticated by: Roger Morales MD. Labs : 11/12/18 22:51 11/13/18 01:09 Laboratory Results - last 24 hr 11/12/18 11/12/18 11/12/18 22:51 22:51 22:51 WBC 9.78 RBC 3.93 L Hgb 12.0 L Hct 38.3 L MCV 97.5 H MCH 30.5 MCHC 31.3 L RDW 14.7 H Plt Count 216 MPV 8.3 Immature Gran % 0.1 Neutrophils % 70.0 Lymphocytes % 21.2 Monocytes % 7.3 Eosinophils % 1.0 Basophils % 0.4 Absolute Neutrophils 6.85 H Absolute Lymphocytes 2.07 Absolute Monocytes 0.71 H Absolute Eosinophils 0.10 Absolute Basophils 0.04 Sodium 138 Potassium 5.5 H Chloride 102 Carbon Dioxide 24.8 Anion Gap 11.2 H BUN 31 H Creatinine 2.54 H Estimated GFR/1.73 m2 25.58 Glucose 282 H Calcium 9.0 Total Bilirubin 0.7 AST 20 ALT 28 Alkaline Phosphatase 159 H Troponin I 0.03 Total Protein 8.7 H Albumin 3.1 L Urine Color Urine Clarity Urine pH Ur Specific [place] Urine Protein Urine Ketones Urine Blood Urine Nitrite Urine Bilirubin Urine Urobilinogen Ur Leukocyte Esterase Urine RBC Urine WBC Ur Epithelial Cells Urine Crystals Urine Bacteria Urine Casts Urine Mucus Ur Culture Indicated? Urine Glucose 11/13/18 11/13/18 01:09 01:30 WBC RBC Hgb Hct MCV MCH MCHC RDW Plt Count MPV Immature Gran % Neutrophils % Lymphocytes % Monocytes % Eosinophils % Basophils % Absolute Neutrophils Absolute Lymphocytes Absolute Monocytes Absolute Eosinophils Absolute Basophils Sodium 138 Potassium 5.3 H Chloride 104 Carbon Dioxide 25.5 Anion Gap 8.5 BUN 32 H Creatinine 2.47 H Estimated GFR/1.73 m2 26.41 Glucose 241 H Calcium 8.7 Total Bilirubin AST ALT Alkaline Phosphatase Troponin I Total Protein Albumin Urine Color Yellow Urine Clarity Clear Urine pH 5.5 Ur Specific [place] 1.020 Urine Protein 100 H Urine Ketones Negative Urine Blood Trace-lysed H Urine Nitrite Negative Urine Bilirubin Negative Urine Urobilinogen 0.2 Ur Leukocyte Esterase Negative Urine RBC 0-2 Urine WBC 3-5 Ur Epithelial Cells Rare Urine Crystals Negative Urine Bacteria Rare Urine Casts Negative Urine Mucus Trace Ur Culture Indicated? C&s done as ordered Urine Glucose 100 Last Vital Signs Temp 39.0 C H 11/13/18 02:53 Pulse 100 H 11/13/18 02:53 Resp 20 11/13/18 02:53 BP 133/70 11/13/18 02:53 Pulse Ox 95 11/13/18 02:53
[2018-11-13] MEDS: Heparin 5,000 UNITS/ML VIAL 5000 UNITS SC ×3 (06:15→23:24)
[2018-11-13] MEDS: Normal Saline 1,000 ML 125 ML IV (06:16)
[2018-11-13] MEDS: Acetaminophen 500 MG TAB PO ×3 (06:16→21:03)
[2018-11-13] MEDS: Insulin Aspart 300 UNITS/3 ML PEN SC ×3 (07:52→17:05)
[2018-11-13] MEDS: Losartan 25 MG TAB 12.5 MG PO (07:53)
[2018-11-13] MEDS: Propranolol 40 MG TAB 160 MG PO ×3 (07:53→21:07)
[2018-11-13] MEDS: Omeprazole 20 MG CAPCR 40 MG PO (07:53)
[2018-11-13] MEDS: Tacrolimus 0.5 MG CAP 1 MG PO (07:54)
[2018-11-13] MEDS: Folic Acid 1 MG TAB PO (07:54)
[2018-11-13] MEDS: Aspirin E.C. 81 MG TABEC PO (07:54)
[2018-11-13] MEDS: Montelukast 10 MG TAB PO (07:54)
[2018-11-13] MEDS: Gabapentin 300 MG CAP 900 MG PO ×3 (07:55→21:03)
[2018-11-13] MEDS: Atorvastatin 20 MG TAB PO (07:55)
[2018-11-13] MEDS: Multivitamin TAB 1 TAB PO (07:55)
[2018-11-13 10:40] LABS: Anion Gap 10.2 mmol/L (3-11); BUN 38 mg/dL (7-18); CO2 21.8 mmol/L (21.0-32.0); Calcium 8.3 mg/dL (8.5-10.1); Chloride 104 mmol/L (98-107); Estimated GFR 23.84 (mL/min/1.73m2); Glucose 365 mg/dL (70-100); Sodium 136 mmol/L (136-145)
--- NOTE | 2018-11-13 10:41 | PDOC.CMIN ---
- If Service Date Differs Date of service: 11/13/18 Time of Service: 10:41 Care Management Initial Assess REASON FOR HOSPITALIZATION:: Pneumonia PAST MEDICAL HISTORY/PAST SURGICAL HISTORY:: Immunosuppression, Kidney transplant approx ten years ago for diabetic neuropathy, diabetic vasculopathy, S/P bilateral [id number] amputations; left leg 20 years ago, right leg 7 years ago, Hx of ventilator-associated pneumonia following ICU course 2012, Morbid obesity, hypertension, chronic nasal congestion, Vitamin D deficiency, GERD, Intention tremor, hyperlipidemia, CAD, hx of tobacco addiction with approximately 50 pack year history. PREVIOUS FUNCTIONAL STATUS/SOCIAL/FAMILY SUPPORTS:: Leroy resides with his Linda of 5 years and his mom Brie in [place]. He retired from He is disabled, due to bilateral BKA's. Leroy is independent at baseline, drives with hand assist controls. He has outpatient follow up with DM educator. He enjoys going to lawn [employer] and mowing his lawn. CURRENT FUNCTIONAL STATUS:: Reuben is sitting up in bed he is waiting to get up to his wheelchair with nurse. He states his illness came on suddenly he was sitting up in the chair and felt the chills. He reports he saw his primary care last and he was asymptomatic. He has a niece who is an RN. He describes good support at home. He does not have community services to assist with care his spouse is his main support person. 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 He denies any addtional home services. His specalist are located at [facility] and he meets with a DM educator in the community. PRIMARY CARE PHYSICIAN:: POTENTIAL DISCHARGE NEEDS:: Follow up appointment with primary care provider PATIENT/FAMILY EDUCATION NEEDS:: Discharge education, limitations and follow up plan of care. ANTICIPATED BARRIERS TO DISCHARGE:: None identified. TRANSPORTATION:: Via private car with spouse at time of discharge PLAN:: Reuben is currently being treated with IV antibioitcs. Provider is concerned related to his history of kidney transplant he should transfer to a teritary center. Provider is contacting [facility] and [facility]. CM to continue to provide support to patient, family and care team.
--- NOTE | 2018-11-13 10:56 | INITIAL_ITS ---
- If Service Date Differs Date of service: 11/13/18 Time of Service: 10:41 Care Management Initial Assess REASON FOR HOSPITALIZATION:: Pneumonia PAST MEDICAL HISTORY/PAST SURGICAL HISTORY:: Immunosuppression, Kidney transplant approx ten years ago for diabetic neuropathy, diabetic vasculopathy, S/P bilateral [id number] amputations; left leg 20 years ago, right leg 7 years ago, Hx of ventilator-associated pneumonia following ICU course 2012, Morbid obesity, hypertension, chronic nasal congestion, Vitamin D deficiency, GERD, Intention tremor, hyperlipidemia, CAD, hx of tobacco addiction with approximately 50 pack year history. PREVIOUS FUNCTIONAL STATUS/SOCIAL/FAMILY SUPPORTS:: Leroy resides with his Linda of 5 years and his mom Brie in [place]. He retired from He is disabled, due to bilateral BKA's. Leroy is independent at baseline, drives with hand assist controls. He has outpatient follow up with DM educator. He enjoys going to lawn [employer] and mowing his lawn. CURRENT FUNCTIONAL STATUS:: Reuben is sitting up in bed he is waiting to get up to his wheelchair with nurse. He states his illness came on suddenly he was sitting up in the chair and felt the chills. He reports he saw his primary care last and he was asymptomatic. He has a niece who is an RN. He describes good support at home. He does not have community services to assist with care his spouse is his main support person. ADVANCE DIRECTIVES:: On file - Jeremie Rodriguez is agent, Brie Torres is alternate Has patient been provided with information about the portal?: Yes Did the patient sign up for the portal?: No CODE STATUS:: Full Code INSURANCE COVERAGE / FINANCIAL ISSUES:: 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 He denies any addtional home services. His specalist are located at [facility] and he meets with a DM educator in the community. PRIMARY CARE PHYSICIAN:: POTENTIAL DISCHARGE NEEDS:: Follow up appointment with primary care provider PATIENT/FAMILY EDUCATION NEEDS:: Discharge education, limitations and follow up plan of care. ANTICIPATED BARRIERS TO DISCHARGE:: None identified. TRANSPORTATION:: Via private car with spouse at time of discharge PLAN:: Reuben is currently being treated with IV antibioitcs. Provider is concerned related to his history of kidney transplant he should transfer to a teritary center. Provider is contacting [facility] and [facility]. CM to continue to provide support to patient, family and care team.
[2018-11-13] MEDS: Albuterol/Ipratropium 3 ML UPD VIAL UPD ×2 (13:42→18:40)
--- NOTE | 2018-11-13 15:03 | CHAPLAIN ---
Leroy's mom and , Linda, were visit when I stopped in. Leroy was sleeping. I introduced myself, explained my role and offered support. I will check back with them tomorrow.
[2018-11-13] MEDS: Benzonatate 100 MG CAP PO ×2 (15:31→21:03)
[2018-11-13] MEDS: Insulin Aspart 300 UNITS/3 ML PEN 20 UNITS SC (17:06)
--- NOTE | 2018-11-13 17:54 | W.PM.PROGNOT ---
Date of Service Date of service: 11/13/18 Time of Service: 17:54 Assessment and Plan (1) Sepsis: Current visit: Yes Status: Acute in a patient on immunsuppression for kidney transplant, due to CAP. Patient was initiated on aztreonam/doxycycline here - will seek guidance from transplant ID. Blood cultures are pending. Resp. cultures are pending. Continue empiric antibiotics as above. (2) CAP (community acquired pneumonia): Current visit: Yes Status: Acute As above. (3) Kidney transplant recipient: Current visit: No Status: Chronic in 2007. Transplanted kidney now has diabetic nephropathy, per my conversation with Dr Garnett. Normally, on prograf and mycophenylate, but not on steroids. Currently, there is a question of whether or not we are dealing with prograf toxicity. Level is being checked - until then, per Dr Garnett, prograf should be held. Continue mycophenylate and monitor kidney function. Ultimately, the patient needs to be transferred to a tertiary care facility where the levels can be monitored real time. (4) Acute kidney injury superimposed on chronic kidney disease: Current visit: Yes Status: Acute Etiology unclear, but prograf toxicity is on top of the differential. Hold prograf and ARB. I do not feel that the patient can tolerate much more IVF due to his diastolic CHF and now being slightly fluid overloaded. Monitor Cr. Read discussion above re transfer. (5) Hyperkalemia: Current visit: No Status: Acute Improved - continue to monitor. I suspect that tighter glucose control might help with this. (6) Diastolic CHF: Current visit: No Status: Acute As above. I feel that the benefits of IVF at this point do not outweigh the risks. IVF on hold. (7) Uncontrolled insulin dependent diabetes mellitus: Current visit: Yes Status: Acute Transferring to the ICU for tighter BG control. Target BG range is 150-200. Patient is allowed to have a diet, will continue to have prandial aspart as well as BID levemir. (8) Hypertension: Current visit: No Status: Chronic hold ARB in light of ANSELMO (9) Hyperlipidemia: Current visit: No Status: Chronic Continue statin (10) Ambulatory dysfunction: Current visit: Yes Status: Acute PT/OT consulted (11) Discharge planning issues: Current visit: Yes Status: Acute Will require transfer to either [facility] or [facility], depending on where the bed becomes available first. There is no waiting list at [facility], but he is on one to [facility], accepted under Dr Diaz. A total of 155 minutes were spent providing critical care, discussing case with transplant services at [facility] and [facility] and attempting to coordinate transfer for this patient (12) DVT prophylaxis: Current visit: Yes Status: Acute SQ heparin Subjective Interval history since last seen: Mr Torres continues to have cough and shortness of breath. Denies dizziness, chest pain, nausea today (did have it yesterday). Denies abdominal pain. Had not yet been up to the chair when I saw him. He is in agreement with transfer to either [facility] or [facility]. Unfortunately, there are no beds available at either, but Dr Garnett at [facility] agrees the patient should be transferred there when a bed becomes available (transfer due to concerns for prograf toxicity causing ANSELMO which we cannot monitor in a timely manner). I spoke with the medical supply technician of the transfer center at [facility] in regards to possibly placing this patient at [facility] ED - unfortunately, this is also not an option. At [facility], Dr Skinner of transplant surgery agreed that the patient should be at a transplant facility, but ideally his own one. Ultimately, the patient was accepted in transfer by Dr Diaz of hospitalist service at [facility], but there is a 24-48 hour waiting period expected before a bed becomes available. Per Dr Garnett, as an insulin drip is recommended for tighter sugar control, ideally for BG range of 150-200. An ICU bed will be available at [facility], per nursing feed mill supervisor. Exam Narrative Exam Narrative: General: obese male, laying comfortably in bed at a 30 degree angle, on room air, not tachypneic; pale HEENT: EOMI, MMM Heart: RRR, no m/r/g Lungs: quiet rhonchi but also rales B, wet respiratory sounds GI: abdomen is soft, nontender, nondistended Extremities: s/p B BKA; B stumps well healed Objective Objective Clinical Data: Abnormal lab results 11/12/18 11/12/18 11/13/18 Range/Units 22:51 22:51 01:09 RBC 3.93 L (4.50-6.00) m/cumm Hgb 12.0 L (13.5-17.5) g/dL Hct 38.3 L (40.0-50.0) % MCV 97.5 H (80-95) fL MCHC 31.3 L (32.0-36.0) g/dL RDW 14.7 H (11.8-14.1) % Absolute Neutrophils 6.85 H (1.2-6.7) k/cumm Absolute Monocytes 0.71 H (0.11-0.7) k/cumm Potassium 5.5 H 5.3 H (3.5-5.1) mmol/L Anion Gap 11.2 H (3-11) mmol/L BUN 31 H 32 H (7-18) mg/dL Creatinine 2.54 H 2.47 H (0.70-1.30) mg/dL Glucose 282 H 241 H (70-100) mg/dL Calcium (8.5-10.1) mg/dL Alkaline Phosphatase 159 H (46-116) U/L Total Protein 8.7 H (6.4-8.2) g/dL Albumin 3.1 L (3.4-5.0) g/dL Urine Protein (Negative) mg/dL Urine Blood (Negative) 11/13/18 11/13/18 Range/Units 01:30 10:13 RBC (4.50-6.00) m/cumm Hgb (13.5-17.5) g/dL Hct (40.0-50.0) % MCV (80-95) fL MCHC (32.0-36.0) g/dL RDW (11.8-14.1) % Absolute Neutrophils (1.2-6.7) k/cumm Absolute Monocytes (0.11-0.7) k/cumm Potassium (3.5-5.1) mmol/L Anion Gap (3-11) mmol/L BUN 38 H (7-18) mg/dL Creatinine 2.70 H (0.70-1.30) mg/dL Glucose 365 H D (70-100) mg/dL Calcium 8.3 L (8.5-10.1) mg/dL Alkaline Phosphatase (46-116) U/L Total Protein (6.4-8.2) g/dL Albumin (3.4-5.0) g/dL Urine Protein 100 H (Negative) mg/dL Urine Blood Trace-lysed H (Negative) Vital Signs Temperature 37.1 C 11/13/18 16:09 Temperature Source Tympanic 11/13/18 16:09 Pulse 72 11/13/18 16:09 Pulse Rhythm Regular 11/13/18 12:16 Pulse 99 H 11/13/18 02:01 Respiratory Rate 20 11/13/18 16:09 Respiratory Effort 11/13/18 12:16 Respiratory Depth Shallow 11/13/18 12:16 Respiratory Pattern Normal 11/13/18 12:16 Blood Pressure 143/68 H 11/13/18 16:09 Blood Pressure Mean 65 11/13/18 02:01 Blood Pressure Position Sitting 11/12/18 22:42 Pulse Oximetry 99 11/13/18 16:09 Oxygen Delivery Method Room Air 11/13/18 16:09 Oxygen Flow Rate 0 11/13/18 16:09 Pain Level 10 11/13/18 17:04 Intake & Output 11/12/18 11/13/18 11/13/18 23:59 11:59 23:59 Intake Total 2500 / 3662.917 1162.917 / 3662.917 Output Total 700 / 700 Balance 2500 / 2962.917 462.917 / 2962.917 Weight 141.521 kg 143.4 kg Intake: IV 2260 / 3182.917 922.917 / 3182.917 Oral 240 / 480 240 / 480 Output: Urine 700 / 700 Other: Urine Color Yellow Urine Appearance Clear Urine Odor Normal Voiding Methods Urinal Laboratory Results WBC 9.78 k/cumm (4.4-10.8) 11/12/18 22:51 RBC 3.93 m/cumm (4.50-6.00) L 11/12/18 22:51 Hgb 12.0 g/dL (13.5-17.5) L 11/12/18 22:51 Hct 38.3 % (40.0-50.0) L 11/12/18 22:51 MCV 97.5 fL (80-95) H 11/12/18 22:51 MCH 30.5 pg (27.0-33.0) 11/12/18 22:51 MCHC 31.3 g/dL (32.0-36.0) L 11/12/18 22:51 RDW 14.7 % (11.8-14.1) H 11/12/18 22:51 Plt Count 216 x1000/uL (130-400) 11/12/18 22:51 MPV 8.3 fL (8.0-11.0) 11/12/18 22:51 Immature Gran % 0.1 11/12/18 22:51 Neutrophils % 70.0 11/12/18 22:51 Lymphocytes % 21.2 11/12/18 22:51 Monocytes % 7.3 11/12/18 22:51 Eosinophils % 1.0 11/12/18 22:51 Basophils % 0.4 11/12/18 22:51 Absolute Neutrophils 6.85 k/cumm (1.2-6.7) H 11/12/18 22:51 Absolute Lymphocytes 2.07 k/cumm (1.2-3.4) 11/12/18 22:51 Absolute Monocytes 0.71 k/cumm (0.11-0.7) H 11/12/18 22:51 Absolute Eosinophils 0.10 k/cumm (0.0-0.7) 11/12/18 22:51 Absolute Basophils 0.04 k/cumm (0.0-0.2) 11/12/18 22:51 Sodium 136 mmol/L (136-145) 11/13/18 10:13 Potassium 5.0 mmol/L (3.5-5.1) 11/13/18 10:13 Chloride 104 mmol/L (98-107) 11/13/18 10:13 Carbon Dioxide 21.8 mmol/L (21.0-32.0) 11/13/18 10:13 Anion Gap 10.2 mmol/L (3-11) 11/13/18 10:13 BUN 38 mg/dL (7-18) H 11/13/18 10:13 Creatinine 2.70 mg/dL (0.70-1.30) H 11/13/18 10:13 Estimated GFR/1.73 m2 23.84 (mL/min/1.73m2) 11/13/18 10:13 Glucose 365 mg/dL (70-100) H D 11/13/18 10:13 Calcium 8.3 mg/dL (8.5-10.1) L 11/13/18 10:13 Total Bilirubin 0.7 mg/dL (0.2-1.0) 11/12/18 22:51 AST 20 U/L (15-37) 11/12/18 22:51 ALT 28 U/L (12-78) 11/12/18 22:51 Alkaline Phosphatase 159 U/L (46-116) H 11/12/18 22:51 Troponin I 0.03 ng/mL (0.00-0.06) 11/12/18 22:51 Total Protein 8.7 g/dL (6.4-8.2) H 11/12/18 22:51 Albumin 3.1 g/dL (3.4-5.0) L 11/12/18 22:51 Urine Color Yellow (Yellow) 11/13/18 01:30 Urine Clarity Clear 11/13/18 01:30 Urine pH 5.5 (5-8) 11/13/18 01:30 Ur Specific [place] 1.020 (1.005-1.025) 11/13/18 01:30 Urine Protein 100 mg/dL (Negative) H 11/13/18 01:30 Urine Ketones Negative mg/dL (Negative) 11/13/18 01:30 Urine Blood Trace-lysed (Negative) H 11/13/18 01:30 Urine Nitrite Negative (Negative) 11/13/18 01:30 Urine Bilirubin Negative (Negative) 11/13/18 01:30 Urine Urobilinogen 0.2 EU/dL (Up TO 0.2) 11/13/18 01:30 Ur Leukocyte Esterase Negative (Negative) 11/13/18 01:30 Urine RBC 0-2 (0-2) 11/13/18 01:30 Urine WBC 3-5 HPF (0-5) 11/13/18 01:30 Ur Epithelial Cells Rare HPF (Negative) 11/13/18 01:30 Urine Crystals Negative HPF (Negative) 11/13/18 01:30 Urine Bacteria Rare HPF (Negative) 11/13/18 01:30 Urine Casts Negative LPF (Negative) 11/13/18 01:30 Urine Mucus Trace (Negative) 11/13/18 01:30 Ur Culture Indicated? C&s done as ordered 11/13/18 01:30 Urine Glucose 100 mg/dL (Negative) 11/13/18 01:30
--- NOTE | 2018-11-13 18:01 | PGE_ITS ---
Date of Service Date of service: 11/13/18 Time of Service: 17:54 Assessment and Plan (1) Sepsis: Current visit: Yes Status: Acute in a patient on immunsuppression for kidney transplant, due to CAP. Patient was initiated on aztreonam/doxycycline here - will seek guidance from transplant ID. Blood cultures are pending. Resp. cultures are pending. Continue empiric antibiotics as above. (2) CAP (community acquired pneumonia): Current visit: Yes Status: Acute As above. (3) Kidney transplant recipient: Current visit: No Status: Chronic in 2007. Transplanted kidney now has diabetic nephropathy, per my conversation with Dr Garnett. Normally, on prograf and mycophenylate, but not on steroids. Currently, there is a question of whether or not we are dealing with prograf toxicity. Level is being checked - until then, per Dr Garnett, prograf should be held. Continue mycophenylate and monitor kidney function. Ultimately, the patient needs to be transferred to a tertiary care facility where the levels can be monitored real time. (4) Acute kidney injury superimposed on chronic kidney disease: Current visit: Yes Status: Acute Etiology unclear, but prograf toxicity is on top of the differential. Hold prograf and ARB. I do not feel that the patient can tolerate much more IVF due to his diastolic CHF and now being slightly fluid overloaded. Monitor Cr. Read discussion above re transfer. (5) Hyperkalemia: Current visit: No Status: Acute Improved - continue to monitor. I suspect that tighter glucose control might help with this. (6) Diastolic CHF: Current visit: No Status: Acute As above. I feel that the benefits of IVF at this point do not outweigh the risks. IVF on hold. (7) Uncontrolled insulin dependent diabetes mellitus: Current visit: Yes Status: Acute Transferring to the ICU for tighter BG control. Target BG range is 150- 200. Patient is allowed to have a diet, will continue to have prandial aspart as well as BID levemir. (8) Hypertension: Current visit: No Status: Chronic hold ARB in light of ANSELMO (9) Hyperlipidemia: Current visit: No Status: Chronic Continue statin (10) Ambulatory dysfunction: Current visit: Yes Status: Acute PT/OT consulted (11) Discharge planning issues: Current visit: Yes Status: Acute Will require transfer to either [facility] or [facility], depending on where the bed becomes available first. There is no waiting list at [facility], but he is on one to [facility], accepted under Dr Diaz. A total of 155 minutes were spent providing critical care, discussing case with transplant services at [facility] and [facility] and attempting to coordinate transfer for this patient (12) DVT prophylaxis: Current visit: Yes Status: Acute SQ heparin Subjective Interval history since last seen: Mr Torres continues to have cough and shortness of breath. Denies dizziness, chest pain, nausea today (did have it yesterday). Denies abdominal pain. Had not yet been up to the chair when I saw him. He is in agreement with transfer to either [facility] or [facility]. Unfortunately, there are no beds available at either, but Dr Garnett at [facility] agrees the patient should be transferred there when a bed becomes available (transfer due to concerns for prograf toxicity causing ANSELMO which we cannot monitor in a timely manner). I spoke with the medical operations supervisor of the transfer center at [facility] in regards to possibly placing this patient at [facility] ED - unfortunately, this is also not an option. At [facility], Dr Skinner of transplant surgery agreed that the patient should be at a transplant facility, but ideally his own one. Ultimately, the patient was accepted in transfer by Dr Diaz of hospitalist service at [facility], but there is a 24-48 hour waiting period expected before a bed becomes available. Per Dr Garnett, as an insulin drip is recommended for tighter sugar control, ideally for BG range of 150-200. An ICU bed will be available at [facility], per nursing instant potato processing supervisor. Exam Narrative Exam Narrative: General: obese male, laying comfortably in bed at a 30 degree angle, on room air, not tachypneic; pale HEENT: EOMI, MMM Heart: RRR, no m/r/g Lungs: quiet rhonchi but also rales B, wet respiratory sounds GI: abdomen is soft, nontender, nondistended Extremities: s/p B BKA; B stumps well healed Objective Objective Clinical Data: Abnormal lab results 11/12/18 11/12/18 11/13/18 Range/Units 22:51 22:51 01:09 RBC 3.93 L (4.50-6.00) m/cumm Hgb 12.0 L (13.5-17.5) g/dL Hct 38.3 L (40.0-50.0) % MCV 97.5 H (80-95) fL MCHC 31.3 L (32.0-36.0) g/dL RDW 14.7 H (11.8-14.1) % Absolute Neutrophils 6.85 H (1.2-6.7) k/cumm Absolute Monocytes 0.71 H (0.11-0.7) k/cumm Potassium 5.5 H 5.3 H (3.5-5.1) mmol/L Anion Gap 11.2 H (3-11) mmol/L BUN 31 H 32 H (7-18) mg/dL Creatinine 2.54 H 2.47 H (0.70-1.30) mg/dL Glucose 282 H 241 H (70-100) mg/dL Calcium (8.5-10.1) mg/dL Alkaline Phosphatase 159 H (46-116) U/L Total Protein 8.7 H (6.4-8.2) g/dL Albumin 3.1 L (3.4-5.0) g/dL Urine Protein (Negative) mg/dL Urine Blood (Negative) 11/13/18 11/13/18 Range/Units 01:30 10:13 RBC (4.50-6.00) m/cumm Hgb (13.5-17.5) g/dL Hct (40.0-50.0) % MCV (80-95) fL MCHC (32.0-36.0) g/dL RDW (11.8-14.1) % Absolute Neutrophils (1.2-6.7) k/cumm Absolute Monocytes (0.11-0.7) k/cumm Potassium (3.5-5.1) mmol/L Anion Gap (3-11) mmol/L BUN 38 H (7-18) mg/dL Creatinine 2.70 H (0.70-1.30) mg/dL Glucose 365 H D (70-100) mg/dL Calcium 8.3 L (8.5-10.1) mg/dL Alkaline Phosphatase (46-116) U/L Total Protein (6.4-8.2) g/dL Albumin (3.4-5.0) g/dL Urine Protein 100 H (Negative) mg/dL Urine Blood Trace-lysed H (Negative) Vital Signs Temperature 37.1 C 11/13/18 16:09 Temperature Source Tympanic 11/13/18 16:09 Pulse 72 11/13/18 16:09 Pulse Rhythm Regular 11/13/18 12:16 Pulse 99 H 11/13/18 02:01 Respiratory Rate 20 11/13/18 16:09 Respiratory Effort 11/13/18 12:16 Respiratory Depth Shallow 11/13/18 12:16 Respiratory Pattern Normal 11/13/18 12:16 Blood Pressure 143/68 H 11/13/18 16:09 Blood Pressure Mean 65 11/13/18 02:01 Blood Pressure Position Sitting 11/12/18 22:42 Pulse Oximetry 99 11/13/18 16:09 Oxygen Delivery Method Room Air 11/13/18 16:09 Oxygen Flow Rate 0 11/13/18 16:09 Pain Level 10 11/13/18 17:04 Intake & Output 11/12/18 11/13/18 11/13/18 23:59 11:59 23:59 Intake Total 2500 / 3662.917 1162.917 / 3662.917 Output Total 700 / 700 Balance 2500 / 2962.917 462.917 / 2962.917 Weight 141.521 kg 143.4 kg Intake: IV 2260 / 3182.917 922.917 / 3182.917 Oral 240 / 480 240 / 480 Output: Urine 700 / 700 Other: Urine Color Yellow Urine Appearance Clear Urine Odor Normal Voiding Methods Urinal Laboratory Results WBC 9.78 k/cumm (4.4-10.8) 11/12/18 22:51 RBC 3.93 m/cumm (4.50-6.00) L 11/12/18 22:51 Hgb 12.0 g/dL (13.5-17.5) L 11/12/18 22:51 Hct 38.3 % (40.0-50.0) L 11/12/18 22:51 MCV 97.5 fL (80-95) H 11/12/18 22:51 MCH 30.5 pg (27.0-33.0) 11/12/18 22:51 MCHC 31.3 g/dL (32.0-36.0) L 11/12/18 22:51 RDW 14.7 % (11.8-14.1) H 11/12/18 22:51 Plt Count 216 x1000/uL (130-400) 11/12/18 22:51 MPV 8.3 fL (8.0-11.0) 11/12/18 22:51 Immature Gran % 0.1 11/12/18 22:51 Neutrophils % 70.0 11/12/18 22:51 Lymphocytes % 21.2 11/12/18 22:51 Monocytes % 7.3 11/12/18 22:51 Eosinophils % 1.0 11/12/18 22:51 Basophils % 0.4 11/12/18 22:51 Absolute Neutrophils 6.85 k/cumm (1.2-6.7) H 11/12/18 22:51 Absolute Lymphocytes 2.07 k/cumm (1.2-3.4) 11/12/18 22:51 Absolute Monocytes 0.71 k/cumm (0.11-0.7) H 11/12/18 22:51 Absolute Eosinophils 0.10 k/cumm (0.0-0.7) 11/12/18 22:51 Absolute Basophils 0.04 k/cumm (0.0-0.2) 11/12/18 22:51 Sodium 136 mmol/L (136-145) 11/13/18 10:13 Potassium 5.0 mmol/L (3.5-5.1) 11/13/18 10:13 Chloride 104 mmol/L (98-107) 11/13/18 10:13 Carbon Dioxide 21.8 mmol/L (21.0-32.0) 11/13/18 10:13 Anion Gap 10.2 mmol/L (3-11) 11/13/18 10:13 BUN 38 mg/dL (7-18) H 11/13/18 10:13 Creatinine 2.70 mg/dL (0.70-1.30) H 11/13/18 10:13 Estimated GFR/1.73 m2 23.84 (mL/min/1.73m2) 11/13/18 10:13 Glucose 365 mg/dL (70-100) H D 11/13/18 10:13 Calcium 8.3 mg/dL (8.5-10.1) L 11/13/18 10:13 Total Bilirubin 0.7 mg/dL (0.2-1.0) 11/12/18 22:51 AST 20 U/L (15-37) 11/12/18 22:51 ALT 28 U/L (12-78) 11/12/18 22:51 Alkaline Phosphatase 159 U/L (46-116) H 11/12/18 22:51 Troponin I 0.03 ng/mL (0.00-0.06) 11/12/18 22:51 Total Protein 8.7 g/dL (6.4-8.2) H 11/12/18 22:51 Albumin 3.1 g/dL (3.4-5.0) L 11/12/18 22:51 Urine Color Yellow (Yellow) 11/13/18 01:30 Urine Clarity Clear 11/13/18 01:30 Urine pH 5.5 (5-8) 11/13/18 01:30 Ur Specific [place] 1.020 (1.005-1.025) 11/13/18 01:30 Urine Protein 100 mg/dL (Negative) H 11/13/18 01:30 Urine Ketones Negative mg/dL (Negative) 11/13/18 01:30 Urine Blood Trace-lysed (Negative) H 11/13/18 01:30 Urine Nitrite Negative (Negative) 11/13/18 01:30 Urine Bilirubin Negative (Negative) 11/13/18 01:30 Urine Urobilinogen 0.2 EU/dL (Up TO 0.2) 11/13/18 01:30 Ur Leukocyte Esterase Negative (Negative) 11/13/18 01:30 Urine RBC 0-2 (0-2) 11/13/18 01:30 Urine WBC 3-5 HPF (0-5) 11/13/18 01:30 Ur Epithelial Cells Rare HPF (Negative) 11/13/18 01:30 Urine Crystals Negative HPF (Negative) 11/13/18 01:30 Urine Bacteria Rare HPF (Negative) 11/13/18 01:30 Urine Casts Negative LPF (Negative) 11/13/18 01:30 Urine Mucus Trace (Negative) 11/13/18 01:30 Ur Culture Indicated? C&s done as ordered 11/13/18 01:30 Urine Glucose 100 mg/dL (Negative) 11/13/18 01:30
[2018-11-13] MEDS: guaiFENesin 600 MG TABCR PO (21:03)
[2018-11-14] VITALS (103 sets, daily range): BP systolic 108–145; BP diastolic 44–69; PULSE 49–103; RESP 1–35; TEMP 36.1–37.5; O2SAT 95–97
[2018-11-14] MEDS: DOXYCYCLINE 100 MG in Normal Saline 100 ML IVPB ×2 (00:20→12:59)
[2018-11-14] MEDS: Albuterol/Ipratropium 3 ML UPD VIAL UPD ×4 (00:20→17:43)
[2018-11-14 07:10] LABS: Abs Immature Grans 0.02 k/cumm (0.0-0.09); Absolute Basophil Count 0.04 k/cumm (0.0-0.2); Absolute Eosinophil Count 0.28 k/cumm (0.0-0.7); Absolute Lymphocyte Count 2.55 k/cumm (1.2-3.4); Absolute Monocyte Count 1.11 k/cumm (0.11-0.7); Absolute Neutrophil Count 5.87 k/cumm (1.2-6.7); Basophils % 0.4; Eosinophils % 2.8; HCT 35.9 % (40.0-50.0); HGB 10.9 g/dL (13.5-17.5); Immature Grans % 0.2; Lymphocytes % 25.8; Mean Corp. HGB Concentration 30.4 g/dL (32.0-36.0); Mean Corpuscular Hemoglobin 29.9 pg (27.0-33.0); Mean Corpuscular Volume 98.4 fL (80-95); Mean Platelet Volume 8.8 fL (8.0-11.0); Monocytes % 11.2; Neutrophils % 59.6; Platelet Count 194 x1000/uL (130-400); RBC 3.65 m/cumm (4.50-6.00); RBC Distribution Width 14.9 % (11.8-14.1); White Blood Cell Count 9.87 k/cumm (4.4-10.8)
[2018-11-14 07:22] LABS: Anion Gap 8.7 mmol/L (3-11); BUN 35 mg/dL (7-18); CO2 24.3 mmol/L (21.0-32.0); CREATININE 2.67 mg/dL (0.70-1.30); Calcium 9.1 mg/dL (8.5-10.1); Chloride 106 mmol/L (98-107); Estimated GFR 24.14 (mL/min/1.73m2); Glucose 87 mg/dL (70-100); Magnesium 1.4 mg/dL (1.8-2.4); Potassium 4.8 mmol/L (3.5-5.1); Sodium 139 mmol/L (136-145)
[2018-11-14] MEDS: Omeprazole 20 MG CAPCR 40 MG PO (08:45)
[2018-11-14] MEDS: Heparin 5,000 UNITS/ML VIAL 5000 UNITS SC ×2 (08:46→16:12)
[2018-11-14] MEDS: Gabapentin 300 MG CAP 900 MG PO ×3 (08:46→20:02)
[2018-11-14] MEDS: Benzonatate 100 MG CAP PO ×3 (08:46→20:02)
[2018-11-14] MEDS: guaiFENesin 600 MG TABCR PO ×2 (08:46→20:01)
[2018-11-14] MEDS: Multivitamin TAB 1 TAB PO (08:47)
[2018-11-14] MEDS: Atorvastatin 20 MG TAB PO (08:47)
[2018-11-14] MEDS: Propranolol 40 MG TAB 160 MG PO (08:47)
[2018-11-14] MEDS: Montelukast 10 MG TAB PO (08:48)
[2018-11-14] MEDS: Aspirin E.C. 81 MG TABEC PO (08:48)
[2018-11-14] MEDS: Folic Acid 1 MG TAB PO (08:48)
[2018-11-14] MEDS: Insulin Aspart 300 UNITS/3 ML PEN 20 UNITS SC ×2 (09:14→12:19)
--- NOTE | 2018-11-14 11:05 | PDOC.CMPRO ---
Care Management Progress Note S/O-Met with Isaias and his Linda today. He was sitting up in bed in ICU, stating he felt better, but aware that MD is awaiting bed for him at either [facility] or [facility] for transfer. No change to overall plan. A-63 yo man admitted with pneumonia, hyperkalemia, dehydration and CKD. P-Transfer to tertiary center when bed available, via ambulance.
[2018-11-14] MEDS: MAGNESIUM SULFATE 2 GM/50 ML BAG IVPB (11:33)
--- NOTE | 2018-11-14 11:40 | PHARADMIT ---
Addendum entered by Jesús Dennis III 11/15/18 12:13: Pharmacy Note Subjective MD was unable to convince [facility] transplant unit to accept their patient (Kidney transplant) MD is trying to transfer to [facility] transplant unit. Patient is a Diabetic with double BKA & Kidney transplant Objective VS-OK HR-67 SCr-2.74 (up) Mag-1.7 H&H-10.8/35.5 Plts,WBC-OK Wgt-146.1 kg No BM yet Assessment Prograf re-started today. Aztreonam & Doxycycline IV continues Propranolol 160mg PO TID (now has parameters ) Plan Awaiting bed and transfer to [facility]. Original Note: Admission Pharmacy Clinical Review PNEUMONIA, HYPERKALEMIA w/DEHYDRATION & CKD 3 Code Status Full Code Current Weight Wgt- 145.5 kg Renally Cleared and Narrow Therapeutic Index Meds CrCl~ 30 mL/min Meds-OK QTc Value / Action Taken QTc-445 NA BP Control, Fever BP- 144/63 Electrolytes reviewed Na- 139 K+4.8 (was 5.5) Mag-1.4 DVT Prophylaxis Heparin SC Opiate Usage / Scheduled Bowel Regimen Ordered No Yes Plt/SCr for Heparin / Enoxaparin Plts-194 SCr-2.67 INR for Warfarin NA H/H stable, WBC/Bands H&H- 10.9/35.9 WBC-9.87 Antibiotic appropriateness Aztreonam, Doxycycline Cultures and Sensitivities Urine, Blood-no growth /24 hrs Surgical ABX d/c within 24 hr NA DM control / Insulin Dosing BG- 87 Aspart, Detemir Heart Failure (Check EF%) (SHANDRA's, B-Block, Diuretics) Losartan, Propranolol-LA IV to PO Switch No Home Meds Reviewed Propranolol is LA Home Meds Not Ordered Glucagon, Victoza, Prograf Comments concerned about Prograf toxicity
--- NOTE | 2018-11-14 13:03 | CMPROGNOTE_ITS ---
Care Management Progress Note S/O-Met with Isaias and his Linda today. He was sitting up in bed in ICU, stating he felt better, but aware that MD is awaiting bed for him at either [facility] or [facility] for transfer. No change to overall plan. A-63 yo man admitted with pneumonia, hyperkalemia, dehydration and CKD. P-Transfer to tertiary center when bed available, via ambulance.
[2018-11-14] MEDS: Acetaminophen 500 MG TAB PO (15:52)
[2018-11-14] MEDS: Normal Saline 1,000 ML 75 ML IV (16:22)
[2018-11-14 16:45] LABS: Troponin I < 0.02 ng/mL (0.00-0.06)
--- NOTE | 2018-11-14 17:46 | W.PM.PROGNOT ---
Date of Service Date of service: 11/14/18 Time of Service: 15:00 Assessment and Plan (1) Atrial fibrillation: Current visit: Yes Status: Chronic New diagnosis, as far as we know. Rate is controlled. I am not starting anticoagulation at this time - would like to defer choice to transplant team/cardiology. Cardiology will be consulted if patient is still here past noon tomorrow. R/o ACS. Obtain echo. Continue to monitor on tele. (2) Sepsis: Current visit: Yes Status: Acute in a patient on immunosuppression for kidney transplant, due to CAP. aztreonam/doxycycline - I see that our ED discussed the abx choice with [facility]. Will continue as there is clinical improvement. Patient has defervesced. Blood cultures: NGTD. (3) CAP (community acquired pneumonia): Current visit: Yes Status: Acute As above. (4) Kidney transplant recipient: Current visit: No Status: Chronic in 2007. Transplanted kidney now has diabetic nephropathy, per my conversation with Dr Garnett. Normally, on prograf and mycophenylate, but not on steroids. Currently, there is a question of whether or not we are dealing with prograf toxicity. I also question whether or not the patient could be rejecting the kidney. Prograf level takes >48 hours to come back at our facility. [facility] and [facility] are both aware of this. Prograf is on hold, per Dr Garnett's recommendation. IVF resumed. (5) Acute kidney injury superimposed on chronic kidney disease: Current visit: Yes Status: Acute Etiology unclear, but prograf toxicity is on top of the differential, as is rejection. Hold prograf and ARB. Resume IVF at a lower rate. Monitor Cr. Read discussion above re transfer. (6) Hyperkalemia: Current visit: No Status: Resolved Continue to monitor. (7) Diastolic CHF: Current visit: No Status: Acute As above. Resume IVF. (8) Uncontrolled insulin dependent diabetes mellitus: Current visit: Yes Status: Acute Off insulin gtt - BG's have been in the 90's-130's range. Basal bolus adjusted; corrective scale reintroduced. (9) Hypertension: Current visit: No Status: Chronic hold ARB in light of ANSELMO (10) Hyperlipidemia: Current visit: No Status: Chronic Continue statin (11) Ambulatory dysfunction: Current visit: Yes Status: Acute PT/OT consulted (12) Discharge planning issues: Current visit: Yes Status: Acute Awaiting transfer to either [facility] or [facility], depending on where the bed becomes available first. There is no waiting list at [facility], but he is on one to [facility], accepted under Dr Diaz. Per my conversation with Sylvia at [facility], there will likely be a bed for him tomorrow. (13) DVT prophylaxis: Current visit: Yes Status: Acute SQ heparin (14) MELISSA (obstructive sleep apnea): Current visit: Yes Status: Chronic Subjective Interval history since last seen: The patient was seen earlier in the day - and then, in the afternoon, he went into atrial fibrillation/flutter. He has never had this before, to his knowledge. His family also confirms that they had never heard that he has it. He is asymptomatic of it, denying dizziness, chest pain, palpitations, shortness of breath, nausea. Unfortunately, there is still no bed available for him at either [facility] or [facility]. Exam Narrative Exam Narrative: General: obese male, sitting up in bed, not tachypneic, on room air, pale HEENT: EOMI, MMM Heart: RRR, no m/r/g Lungs: quiet rhonchi but also minimal rales B GI: abdomen is soft, nontender, nondistended Extremities: s/p B BKA; B stumps well healed Objective Objective Clinical Data: Abnormal lab results 11/14/18 11/14/18 Range/Units 06:14 06:14 RBC 3.65 L (4.50-6.00) m/cumm Hgb 10.9 L (13.5-17.5) g/dL Hct 35.9 L (40.0-50.0) % MCV 98.4 H (80-95) fL MCHC 30.4 L (32.0-36.0) g/dL RDW 14.9 H (11.8-14.1) % Absolute Monocytes 1.11 H (0.11-0.7) k/cumm BUN 35 H (7-18) mg/dL Creatinine 2.67 H (0.70-1.30) mg/dL Magnesium 1.4 L (1.8-2.4) mg/dL Vital Signs Temperature 37.1 C 11/14/18 15:40 Temperature Source Tympanic 11/14/18 15:40 Pulse 61 11/14/18 15:52 Pulse Rhythm Regular 11/13/18 12:16 Pulse 58 L 11/14/18 17:30 Respiratory Rate 20 11/14/18 17:30 Respiratory Effort Non-Labored 11/14/18 13:02 Respiratory Depth Normal 11/14/18 13:02 Respiratory Pattern Normal 11/14/18 13:02 Blood Pressure 125/53 L 11/14/18 15:52 Blood Pressure Mean 71 11/14/18 15:52 Blood Pressure Position Sitting 11/12/18 22:42 Pulse Oximetry 97 11/14/18 15:10 Oxygen Delivery Method Room Air 11/14/18 04:21 Oxygen Flow Rate 0 11/14/18 04:21 Pain Level 5 11/14/18 16:52 Intake & Output 11/13/18 11/14/18 11/14/18 23:59 11:59 23:59 Intake Total 1377.917 / 3877.917 450 / 800 350 / 800 Output Total 700 / 700 1250 / 1850 600 / 1850 Balance 677.917 / 3177.917 -800 / -1050 -250 / -1050 Weight 142 kg 145.5 kg Intake: IV 1137.917 / 3397.917 200 / 450 250 / 450 Oral 240 / 480 250 / 350 100 / 350 Output: Urine 700 / 700 1250 / 1850 600 / 1850 Other: Urine Color Yellow Yellow Yellow Urine Appearance Clear Cloudy Clear Urine Odor Normal Normal Normal Voiding Methods Urinal Urinal Urinal Laboratory Results WBC 9.87 k/cumm (4.4-10.8) 11/14/18 06:14 RBC 3.65 m/cumm (4.50-6.00) L 11/14/18 06:14 Hgb 10.9 g/dL (13.5-17.5) L 11/14/18 06:14 Hct 35.9 % (40.0-50.0) L 11/14/18 06:14 MCV 98.4 fL (80-95) H 11/14/18 06:14 MCH 29.9 pg (27.0-33.0) 11/14/18 06:14 MCHC 30.4 g/dL (32.0-36.0) L 11/14/18 06:14 RDW 14.9 % (11.8-14.1) H 11/14/18 06:14 Plt Count 194 x1000/uL (130-400) 11/14/18 06:14 MPV 8.8 fL (8.0-11.0) 11/14/18 06:14 Immature Gran % 0.2 11/14/18 06:14 Neutrophils % 59.6 11/14/18 06:14 Lymphocytes % 25.8 11/14/18 06:14 Monocytes % 11.2 11/14/18 06:14 Eosinophils % 2.8 11/14/18 06:14 Basophils % 0.4 11/14/18 06:14 Absolute Neutrophils 5.87 k/cumm (1.2-6.7) 11/14/18 06:14 Absolute Lymphocytes 2.55 k/cumm (1.2-3.4) 11/14/18 06:14 Absolute Monocytes 1.11 k/cumm (0.11-0.7) H 11/14/18 06:14 Absolute Eosinophils 0.28 k/cumm (0.0-0.7) 11/14/18 06:14 Absolute Basophils 0.04 k/cumm (0.0-0.2) 11/14/18 06:14 Sodium 139 mmol/L (136-145) 11/14/18 06:14 Potassium 4.8 mmol/L (3.5-5.1) 11/14/18 06:14 Chloride 106 mmol/L (98-107) 11/14/18 06:14 Carbon Dioxide 24.3 mmol/L (21.0-32.0) 11/14/18 06:14 Anion Gap 8.7 mmol/L (3-11) 11/14/18 06:14 BUN 35 mg/dL (7-18) H 11/14/18 06:14 Creatinine 2.67 mg/dL (0.70-1.30) H 11/14/18 06:14 Estimated GFR/1.73 m2 24.14 (mL/min/1.73m2) 11/14/18 06:14 Glucose 87 mg/dL (70-100) D 11/14/18 06:14 Calcium 9.1 mg/dL (8.5-10.1) 11/14/18 06:14 Magnesium 1.4 mg/dL (1.8-2.4) L 11/14/18 06:14 Total Bilirubin 0.7 mg/dL (0.2-1.0) 11/12/18 22:51 AST 20 U/L (15-37) 11/12/18 22:51 ALT 28 U/L (12-78) 11/12/18 22:51 Alkaline Phosphatase 159 U/L (46-116) H 11/12/18 22:51 Troponin I < 0.02 ng/mL (0.00-0.06) 11/14/18 16:05 Total Protein 8.7 g/dL (6.4-8.2) H 11/12/18 22:51 Albumin 3.1 g/dL (3.4-5.0) L 11/12/18 22:51 Urine Color Yellow (Yellow) 11/13/18 01:30 Urine Clarity Clear 11/13/18 01:30 Urine pH 5.5 (5-8) 11/13/18 01:30 Ur Specific [place] 1.020 (1.005-1.025) 11/13/18 01:30 Urine Protein 100 mg/dL (Negative) H 11/13/18 01:30 Urine Ketones Negative mg/dL (Negative) 11/13/18 01:30 Urine Blood Trace-lysed (Negative) H 11/13/18 01:30 Urine Nitrite Negative (Negative) 11/13/18 01:30 Urine Bilirubin Negative (Negative) 11/13/18 01:30 Urine Urobilinogen 0.2 EU/dL (Up TO 0.2) 11/13/18 01:30 Ur Leukocyte Esterase Negative (Negative) 11/13/18 01:30 Urine RBC 0-2 (0-2) 11/13/18 01:30 Urine WBC 3-5 HPF (0-5) 11/13/18 01:30 Ur Epithelial Cells Rare HPF (Negative) 11/13/18 01:30 Urine Crystals Negative HPF (Negative) 11/13/18 01:30 Urine Bacteria Rare HPF (Negative) 11/13/18 01:30 Urine Casts Negative LPF (Negative) 11/13/18 01:30 Urine Mucus Trace (Negative) 11/13/18 01:30 Ur Culture Indicated? C&s done as ordered 11/13/18 01:30 Urine Glucose 100 mg/dL (Negative) 11/13/18 01:30
--- NOTE | 2018-11-14 17:49 | PGE_ITS ---
Date of Service Date of service: 11/14/18 Time of Service: 15:00 Assessment and Plan (1) Atrial fibrillation: Current visit: Yes Status: Chronic New diagnosis, as far as we know. Rate is controlled. I am not starting anticoagulation at this time - would like to defer choice to transplant team/cardiology. Cardiology will be consulted if patient is still here past noon tomorrow. R/o ACS. Obtain echo. Continue to monitor on tele. (2) Sepsis: Current visit: Yes Status: Acute in a patient on immunosuppression for kidney transplant, due to CAP. aztreonam/doxycycline - I see that our ED discussed the abx choice with [facility]. Will continue as there is clinical improvement. Patient has defervesced. Blood cultures: NGTD. (3) CAP (community acquired pneumonia): Current visit: Yes Status: Acute As above. (4) Kidney transplant recipient: Current visit: No Status: Chronic in 2007. Transplanted kidney now has diabetic nephropathy, per my conversation with Dr Garnett. Normally, on prograf and mycophenylate, but not on steroids. Currently, there is a question of whether or not we are dealing with prograf toxicity. I also question whether or not the patient could be rejecting the kidney. Prograf level takes >48 hours to come back at our facility. [facility] are both aware of this. Prograf is on hold, per Dr Garnett's recommendation. IVF resumed. (5) Acute kidney injury superimposed on chronic kidney disease: Current visit: Yes Status: Acute Etiology unclear, but prograf toxicity is on top of the differential, as is rejection. Hold prograf and ARB. Resume IVF at a lower rate. Monitor Cr. Read discussion above re transfer. (6) Hyperkalemia: Current visit: No Status: Resolved Continue to monitor. (7) Diastolic CHF: Current visit: No Status: Acute As above. Resume IVF. (8) Uncontrolled insulin dependent diabetes mellitus: Current visit: Yes Status: Acute Off insulin gtt - BG's have been in the 90's-130's range. Basal bolus adjusted; corrective scale reintroduced. (9) Hypertension: Current visit: No Status: Chronic hold ARB in light of ANSELMO (10) Hyperlipidemia: Current visit: No Status: Chronic Continue statin (11) Ambulatory dysfunction: Current visit: Yes Status: Acute PT/OT consulted (12) Discharge planning issues: Current visit: Yes Status: Acute Awaiting transfer to either [facility], depending on where the bed becomes available first. There is no waiting list at [facility], but he is on one to [facility], accepted under Dr Diaz. Per my conversation with Sylvia at [facility], there will likely be a bed for him tomorrow. (13) DVT prophylaxis: Current visit: Yes Status: Acute SQ heparin (14) MELISSA (obstructive sleep apnea): Current visit: Yes Status: Chronic Subjective Interval history since last seen: The patient was seen earlier in the day - and then, in the afternoon, he went into atrial fibrillation/flutter. He has never had this before, to his knowledge. His family also confirms that they had never heard that he has it. He is asymptomatic of it, denying dizziness, chest pain, palpitations, shortness of breath, nausea. Unfortunately, there is still no bed available for him at either [facility] or [facility]. Exam Narrative Exam Narrative: General: obese male, sitting up in bed, not tachypneic, on room air, pale HEENT: EOMI, MMM Heart: RRR, no m/r/g Lungs: quiet rhonchi but also minimal rales B GI: abdomen is soft, nontender, nondistended Extremities: s/p B BKA; B stumps well healed Objective Objective Clinical Data: Abnormal lab results 11/14/18 11/14/18 Range/Units 06:14 06:14 RBC 3.65 L (4.50-6.00) m/cumm Hgb 10.9 L (13.5-17.5) g/dL Hct 35.9 L (40.0-50.0) % MCV 98.4 H (80-95) fL MCHC 30.4 L (32.0-36.0) g/dL RDW 14.9 H (11.8-14.1) % Absolute Monocytes 1.11 H (0.11-0.7) k/cumm BUN 35 H (7-18) mg/dL Creatinine 2.67 H (0.70-1.30) mg/dL Magnesium 1.4 L (1.8-2.4) mg/dL Vital Signs Temperature 37.1 C 11/14/18 15:40 Temperature Source Tympanic 11/14/18 15:40 Pulse 61 11/14/18 15:52 Pulse Rhythm Regular 11/13/18 12:16 Pulse 58 L 11/14/18 17:30 Respiratory Rate 20 11/14/18 17:30 Respiratory Effort Non-Labored 11/14/18 13:02 Respiratory Depth Normal 11/14/18 13:02 Respiratory Pattern Normal 11/14/18 13:02 Blood Pressure 125/53 L 11/14/18 15:52 Blood Pressure Mean 71 11/14/18 15:52 Blood Pressure Position Sitting 11/12/18 22:42 Pulse Oximetry 97 11/14/18 15:10 Oxygen Delivery Method Room Air 11/14/18 04:21 Oxygen Flow Rate 0 11/14/18 04:21 Pain Level 5 11/14/18 16:52 Intake & Output 11/13/18 11/14/18 11/14/18 23:59 11:59 23:59 Intake Total 1377.917 / 3877.917 450 / 800 350 / 800 Output Total 700 / 700 1250 / 1850 600 / 1850 Balance 677.917 / 3177.917 -800 / -1050 -250 / -1050 Weight 142 kg 145.5 kg Intake: IV 1137.917 / 3397.917 200 / 450 250 / 450 Oral 240 / 480 250 / 350 100 / 350 Output: Urine 700 / 700 1250 / 1850 600 / 1850 Other: Urine Color Yellow Yellow Yellow Urine Appearance Clear Cloudy Clear Urine Odor Normal Normal Normal Voiding Methods Urinal Urinal Urinal Laboratory Results WBC 9.87 k/cumm (4.4-10.8) 11/14/18 06:14 RBC 3.65 m/cumm (4.50-6.00) L 11/14/18 06:14 Hgb 10.9 g/dL (13.5-17.5) L 11/14/18 06:14 Hct 35.9 % (40.0-50.0) L 11/14/18 06:14 MCV 98.4 fL (80-95) H 11/14/18 06:14 MCH 29.9 pg (27.0-33.0) 11/14/18 06:14 MCHC 30.4 g/dL (32.0-36.0) L 11/14/18 06:14 RDW 14.9 % (11.8-14.1) H 11/14/18 06:14 Plt Count 194 x1000/uL (130-400) 11/14/18 06:14 MPV 8.8 fL (8.0-11.0) 11/14/18 06:14 Immature Gran % 0.2 11/14/18 06:14 Neutrophils % 59.6 11/14/18 06:14 Lymphocytes % 25.8 11/14/18 06:14 Monocytes % 11.2 11/14/18 06:14 Eosinophils % 2.8 11/14/18 06:14 Basophils % 0.4 11/14/18 06:14 Absolute Neutrophils 5.87 k/cumm (1.2-6.7) 11/14/18 06:14 Absolute Lymphocytes 2.55 k/cumm (1.2-3.4) 11/14/18 06:14 Absolute Monocytes 1.11 k/cumm (0.11-0.7) H 11/14/18 06:14 Absolute Eosinophils 0.28 k/cumm (0.0-0.7) 11/14/18 06:14 Absolute Basophils 0.04 k/cumm (0.0-0.2) 11/14/18 06:14 Sodium 139 mmol/L (136-145) 11/14/18 06:14 Potassium 4.8 mmol/L (3.5-5.1) 11/14/18 06:14 Chloride 106 mmol/L (98-107) 11/14/18 06:14 Carbon Dioxide 24.3 mmol/L (21.0-32.0) 11/14/18 06:14 Anion Gap 8.7 mmol/L (3-11) 11/14/18 06:14 BUN 35 mg/dL (7-18) H 11/14/18 06:14 Creatinine 2.67 mg/dL (0.70-1.30) H 11/14/18 06:14 Estimated GFR/1.73 m2 24.14 (mL/min/1.73m2) 11/14/18 06:14 Glucose 87 mg/dL (70-100) D 11/14/18 06:14 Calcium 9.1 mg/dL (8.5-10.1) 11/14/18 06:14 Magnesium 1.4 mg/dL (1.8-2.4) L 11/14/18 06:14 Total Bilirubin 0.7 mg/dL (0.2-1.0) 11/12/18 22:51 AST 20 U/L (15-37) 11/12/18 22:51 ALT 28 U/L (12-78) 11/12/18 22:51 Alkaline Phosphatase 159 U/L (46-116) H 11/12/18 22:51 Troponin I < 0.02 ng/mL (0.00-0.06) 11/14/18 16:05 Total Protein 8.7 g/dL (6.4-8.2) H 11/12/18 22:51 Albumin 3.1 g/dL (3.4-5.0) L 11/12/18 22:51 Urine Color Yellow (Yellow) 11/13/18 01:30 Urine Clarity Clear 11/13/18 01:30 Urine pH 5.5 (5-8) 11/13/18 01:30 Ur Specific [place] 1.020 (1.005-1.025) 11/13/18 01:30 Urine Protein 100 mg/dL (Negative) H 11/13/18 01:30 Urine Ketones Negative mg/dL (Negative) 11/13/18 01:30 Urine Blood Trace-lysed (Negative) H 11/13/18 01:30 Urine Nitrite Negative (Negative) 11/13/18 01:30 Urine Bilirubin Negative (Negative) 11/13/18 01:30 Urine Urobilinogen 0.2 EU/dL (Up TO 0.2) 11/13/18 01:30 Ur Leukocyte Esterase Negative (Negative) 11/13/18 01:30 Urine RBC 0-2 (0-2) 11/13/18 01:30 Urine WBC 3-5 HPF (0-5) 11/13/18 01:30 Ur Epithelial Cells Rare HPF (Negative) 11/13/18 01:30 Urine Crystals Negative HPF (Negative) 11/13/18 01:30 Urine Bacteria Rare HPF (Negative) 11/13/18 01:30 Urine Casts Negative LPF (Negative) 11/13/18 01:30 Urine Mucus Trace (Negative) 11/13/18 01:30 Ur Culture Indicated? C&s done as ordered 11/13/18 01:30 Urine Glucose 100 mg/dL (Negative) 11/13/18 01:30
[2018-11-14] MEDS: Insulin Aspart 300 UNITS/3 ML PEN 15 UNITS SC (17:54)
--- NOTE | 2018-11-14 22:38 | OTIE_ITS ---
Occupational Therapy Notes Inpatient Occupational Therapy Evaluation Date: 11/14/18 Referring Doctor:Kayleigh Calvin MD OT Orders: Eval and Treat Precautions: Fall, Standard PATIENT PROFILE/ADMITTING DIAGNOSIS: Pt is a 63 year old male who was admitted through the ER on 11/13/18 for fever and pneumonia. Pt is s/p renal transplant on immune suppressants with bilateral BKA and prostheses. Past Medical History: Medical History Anxiety and depression (Acute) Erectile dysfunction (Acute) Gastroparesis diabeticorum (Acute) Hydrocele (Acute) Hyperlipidemia (Acute) Intention tremor (Acute) Lumbar back pain (Acute) Macrocytic anemia (Acute) Sciatica (Acute) Stage 3 severe COPD by GOLD classification (Acute) Tricuspid insufficiency (Acute) Diabetes mellitus (Chronic) HTN (hypertension) (Chronic) MELISSA (obstructive sleep apnea) (Chronic) Obesity (Chronic) COPD (chronic obstructive pulmonary disease) GERD (gastroesophageal reflux disease) LEFT FOREARM AV FISTULA MELISSA (obstructive sleep apnea) Surgical History Hx of amputation below knee (Acute) Kidney transplant recipient (Acute) Colonoscopy - MAC (02/01/17) EGD - MAC (04/02/16) Social History/Home Situation: Pt reports that he lives in a private home with his and 92 year old mother. He reports that prior to admission he was (I) in all ADLS/IADLs except with putting shoes and socks on his (B) prothesis which he reports his performs for him. He performs his bathing routine sitting in his wheelchair with sponge bathing. He does have a shower but reports that he cannot get the piece of his prothesis wet so he feels there is no way to shower. Pt is (I) with eating. He is (I) with dressing in the sitting position which he performs from side of bed or from wheelchair. He toilets on regular toilet (I). He is (I) in community mobility. He uses a regular and electric wheel chair for mobility. He reports that he is able to walk but not very far with (B) prothesis. He recently went through examination for a new wheelchair and has new (B) prosthesis but reports that he does not like them because they are uncomfortable. He attends Physical Therapy in an exercise outpatient program at [facility] in [place] with his mother. Pt reports that he did have HH PT for waking with prothesis (B) LE in the past. Equipment owned/DME: Wheelchair, electric wheelchair, (B) LE prothesis, shower chair, grab bars, trapeze bar for (I) bed mobility,FWW SUBJECTIVE: Pt was sitting in chair when OT arrived with present in the room. He reports that he really doesn't feel too bad but is agreeable to OT session. OBJECTIVE: General Observation: IV (R) UE, telemetry, (B) LE prothesis off Mental Status: A&Ox3 Pain: no c/o pain ROM: RUE AROM WNL L UE AROM WNL STRENGTH: RUE 5/5 throughout LUE 5/5 throughout SENSATION: Pt intact to light touch and sensation throughout (B) UE. FUNCTIONAL MOBILITY/ADLS: Supine-sit (I) with use of trapeze bar Sit-supine (I) With use of trapeze bar. ADLs performed prior to OT arrival with nursing. Pt indicates that he would like to hold on ADLs until tomorrow as he does not want to don (B) LE prosthesis at this time. BALANCE: Static sitting Normal Dynamic Sitting Normal Static Standing Unable to test Dynamic Standing Unable to test SPECIAL TESTS: Daily Activity Limitations Standardized Measure [facility] AM -PAC ?6 clicks? Daily Activity Inpatient Short Form: Raw score: 23 INFORMED CONSENT/EDUCATION: Pt instructed in purpose of OT Consult and plan of care. ASSESSMENT: Patient is a 63-year-old male referred to occupational therapy services with diagnosis of fever and pneumonia. Pt is s/p renal transplant on immune suppressants with bilateral BKA and prostheses. Patient presents with clinical signs and symptoms consistent with dx, as demonstrated by the following impairment level findings/functional limitations: decreased functional activity tolerance, decreased functional mobility, not performing ADLs at baseline level of function. Patient is assessed as a Low 21352 complexity based on the following: History: See Above Examination: See Above Presentation: Evolving Decision Making: low complexity GOALS Goals x1 week in hospital setting 1. Transfers (I) LRD 2. Dressing-sitting on side of bed (I) UE/LE clothing and (B) LE prothesis 3. Bathing- Sitting on side of bed (I) UE/LE 4. Toileting- on toilet (I) 5. Eating (I) 6. Grooming (I) standing at sink for brushing teeth with FWW, SBA PLAN OF CARE/TREATMENT PLAN: 1x/day, 5 days/ week x 1week Initiate Occupational Therapy Services for bathing, dressing, grooming, toileting, eating, transfer training. DISCHARGE RECOMMENDATIONS OT recommends that pt return home with when medically cleared per MD as well as follow up with PCP/outpatient PT for use of new (B) LE orthosis. TREATMENT TIME/MINUTES/CODES 48430, 30 minutes (10:30) Rose Schulz OTR/She [facility]
[2018-11-14 22:42] LABS: Troponin I 0.02 ng/mL (0.00-0.06)
[2018-11-15] VITALS (81 sets, daily range): BP systolic 118–161; BP diastolic 52–100; PULSE 44–75; RESP 4–26; TEMP 36–36.5; O2SAT 66–100
[2018-11-15] MEDS: DOXYCYCLINE 100 MG in Normal Saline 100 ML IVPB ×2 (00:38→12:31)
[2018-11-15] MEDS: Heparin 5,000 UNITS/ML VIAL 5000 UNITS SC ×2 (00:38→09:15)
[2018-11-15] MEDS: Albuterol/Ipratropium 3 ML UPD VIAL UPD ×3 (00:38→12:18)
--- NOTE | 2018-11-15 05:39 | PT.INIE ---
Date of service: 11/14/18 Time of Service: 15:06 PT Notes Inpatient Physical Therapy Evaluation Date: 11/14/2018 Referring Doctor: Kayleigh Calvin MD PT Orders: PT CONSULT: Eval/treat Precautions: Fall. Standard. Patient Profile/Admitting Diagnosis: Patient is a 63-year-old male admitted on 11/13/18 with chief complaints of chills with fever, mild cough, and mild abdominal symptoms. Patient was diagnosed with acute on chronic kidney disease, community-acquired pneumonia and is status post renal transplant and is currently on immunosuppressants. He is also a bilateral knee amputee with bilateral prosthesis. PMHX: Medical History Anxiety and depression (Acute) Erectile dysfunction (Acute) Gastroparesis diabeticorum (Acute) Hydrocele (Acute) Hyperlipidemia (Acute) Intention tremor (Acute) Lumbar back pain (Acute) Macrocytic anemia (Acute) Sciatica (Acute) Stage 3 severe COPD by GOLD classification (Acute) Tricuspid insufficiency (Acute) Diabetes mellitus (Chronic) HTN (hypertension) (Chronic) MELISSA (obstructive sleep apnea) (Chronic) Obesity (Chronic) COPD (chronic obstructive pulmonary disease) GERD (gastroesophageal reflux disease) LEFT FOREARM AV FISTULA MELISSA (obstructive sleep apnea) Surgical History Hx of amputation below knee (Acute) Kidney transplant recipient (Acute) Colonoscopy - MAC (02/01/17) EGD - MAC (04/02/16) Social History/Home Situation: Patient lives with and with mother in their home with no stairs but with a ramp to enter. He states that he has been ambulatory inside his house without use of any assistive device although he states he has a 4WW and a cane at home. He elaborates that he was walking 2 weeks ago prior to admission. Patient states that he has family who live close by who are very supportive to them. Patient has an ongoing request for a power wheelchair replacement/repair with the outpatient clinic. Equipment Owned/DME: [facility] [place] Subjective: Patient and family agreeable to a PT consult and treatment session. He states he is not febrile at this time but does report increased tremor on his right upper extremity. He reports no abdominal discomfort. Objective: General Observation: Patient seen lying in bed in conversation with , mother, niece, and nephew. IV in right UE. Blanchable erythema noted on right and left residual limb. Swelling observed on bilateral residual limb with left more than the right. Mental Status: Alert and oriented x3 Pain: 1 0/10 Vital Signs: 111/69 mmHg, 95% on room air rolling, 84 bpm, 25 CPM ROM: Right Upper Extremity: Shoulder Flexion WFL. Shoulder abduction WFL. Elbow flexion WFL. Wrist flexion WFL. Functional opening and closing of hand WFL. Left Upper Extremity: Shoulder Flexion WFL. Shoulder abduction WFL. Elbow flexion WFL. Wrist flexion WFL. Functional opening and closing of hand WFL. Right Lower Extremity: Hip flexion WFL. Hip extension 3-/5. Hip abduction WFL. Knee flexion WFL. Left Lower Extremity: Hip flexion WFL. Hip extension 3-/5. Hip abduction WFL. Knee flexion WFL. Strength: Right Upper Extremity: Shoulder flexors 4/5. Shoulder abductors 4/5. Elbow flexors 4/5. Elbow extensors 4/5. Measuring Machine Tender strong. Left Upper Extremity: Shoulder flexors 4/5. Shoulder abductors 4/5. Elbow flexors 4/5. Elbow extensors 4/5. Measuring Machine Tender strong. Right Lower Extremity: Hip flexors 4/5. Hip abductors 4/5. Knee flexors 4/5. Knee extensors 4/5. Right Lower Extremity:Hip flexors 4/5. Hip abductors 4/5. Knee flexors 4/5. Knee extensors 4/5. BED MOBILITY LEVELS/TRANSFERS Rolling moderate assist Supine to sit moderate assist Sit to supine moderate assist Sit to stand NT Stand to sit NT Bed to chair NT Chair to bed NT Gait: NT Balance: Static Sitting: Good Dynamic Sitting: Fair Static Standing: NT Dynamic Standing: NT Special Tests: Mobility Limitations Standardized Measure [facility] AM-PAC 6 clicks Basic Mobility Inpatient Short Form: Raw Score: 15 CMS Score: 58% deficit Informed Consent/Education: Patient instructed in purpose of PT consult and plan of care. Patient was instructed with correct techniques for pursed lip breathing and and doing better level exercises. Assessment: Patient is a 63 year old male referred to physical therapy services with the diagnosis of community-acquired pneumonia, controlled diabetes mellitus mellitus. Patient presents with clinical signs and symptoms consistent with current/admitting diagnoses that have resulted to mobility limitations, gait instability, generalized weakness, and impairment of motor control as demonstrated by the following impairment level findings: 1. Decreased strength to B LE major muscle groups 2. Impaired sittingbalance 3. Impaired activity tolerance 4. Bilateral residual limb swelling and erythema preventing use of bilateral below-knee prosthesis Impairments are contributing to the following functional limitations: 1. Requires assistance with bed mobility skills 2. Increased dependence with transfers 3. Inability to safely ambulate 4. Increase completion time for mobility ADL performance 5. Increased fall risk Patient is assessed as a Moderate 76522 complexity based on the following: History: 63-year-old obese male with diagnosis of community-acquired pneumonia and uncontrolled diabetes who is a bilateral below-knee amputee of over 10 years and is currently on immunosuppression due to previous renal transplant Examination: Underlying impairments and functional limitations as noted above Presentation: Unstable Decision Makin moderate complexity Goals: Goals X1 week 1. Supine-Sit independent 2. Sit-Supine independent 3. Sit-Stand independent 4. Stand-Sit independent 5. Bed-Chair independent 6. Chair-Bed independent 7. Independent gait on level surface with use of least restrictive device for at least 30 feet without report of pain nor dyspnea with use of bilateral below-knee prostheses and front-wheeled walker 8. Independent with home exercise program 9. Good static and dynamic standing balance/tolerance Plan of Care/Treatment Plan: 1-2x/day, 7 days/week x 1 week. Plan of care has been reviewed with the SEATING CAPTAIN providing the service under Physical Therapy direction. Initiate Physical Therapy intervention for strengthening, bed mobility, transfers, gait, stairs, balance training, use of assistive device. DISCHARGE RECOMMENDATIONS: Patient will highly benefit from short-term home health physical therapy services in order to maximize functional mobility level, reduce fall risk, and [place] [address] functional maintenance program. TREATMENT CODE/TIME: 78585 25 minutes, 80966 15 minutes, 13420 12 minutes beginning at 12:55 PM. Thank you for this referral. Alda Walter, PT, DPT, CLT [facility]
--- NOTE | 2018-11-15 05:42 | IN_ITS ---
Date of service: 11/14/18 Time of Service: 15:06 PT Notes Inpatient Physical Therapy Evaluation Date: 11/14/2018 Referring Doctor: Kayleigh Calvin MD PT Orders: PT CONSULT: Eval/treat Precautions: Fall. Standard. Patient Profile/Admitting Diagnosis: Patient is a 63-year-old male admitted on 11/13/18 with chief complaints of chills with fever, mild cough, and mild abdominal symptoms. Patient was diagnosed with acute on chronic kidney disease, community-acquired pneumonia and is status post renal transplant and is currently on immunosuppressants. He is also a bilateral knee amputee with bilateral prosthesis. PMHX: Medical History Anxiety and depression (Acute) Erectile dysfunction (Acute) Gastroparesis diabeticorum (Acute) Hydrocele (Acute) Hyperlipidemia (Acute) Intention tremor (Acute) Lumbar back pain (Acute) Macrocytic anemia (Acute) Sciatica (Acute) Stage 3 severe COPD by GOLD classification (Acute) Tricuspid insufficiency (Acute) Diabetes mellitus (Chronic) HTN (hypertension) (Chronic) MELISSA (obstructive sleep apnea) (Chronic) Obesity (Chronic) COPD (chronic obstructive pulmonary disease) GERD (gastroesophageal reflux disease) LEFT FOREARM AV FISTULA MELISSA (obstructive sleep apnea) Surgical History Hx of amputation below knee (Acute) Kidney transplant recipient (Acute) Colonoscopy - MAC (02/01/17) EGD - MAC (04/02/16) Social History/Home Situation: Patient lives with and with mother in their home with no stairs but with a ramp to enter. He states that he has been ambulatory inside his house without use of any assistive device although he states he has a 4WW and a cane at home. He elaborates that he was walking 2 weeks ago prior to admission. Patient states that he has family who live close by who are very supportive to them. Patient has an ongoing request for a power wheelchair replacement/repair with the outpatient clinic. Equipment Owned/DME: [facility] [place] Subjective: Patient and family agreeable to a PT consult and treatment session. He states he is not febrile at this time but does report increased tremor on his right upper extremity. He reports no abdominal discomfort. Objective: General Observation: Patient seen lying in bed in conversation with , mother, niece, and nephew. IV in right UE. Blanchable erythema noted on right and left residual limb. Swelling observed on bilateral residual limb with left more than the right. Mental Status: Alert and oriented x3 Pain: 1 0/10 Vital Signs: 111/69 mmHg, 95% on room air rolling, 84 bpm, 25 CPM ROM: Right Upper Extremity: Shoulder Flexion WFL. Shoulder abduction WFL. Elbow flexion WFL. Wrist flexion WFL. Functional opening and closing of hand WFL. Left Upper Extremity: Shoulder Flexion WFL. Shoulder abduction WFL. Elbow flexion WFL. Wrist flexion WFL. Functional opening and closing of hand WFL. Right Lower Extremity: Hip flexion WFL. Hip extension 3-/5. Hip abduction WFL. Knee flexion WFL. Left Lower Extremity: Hip flexion WFL. Hip extension 3-/5. Hip abduction WFL. Knee flexion WFL. Strength: Right Upper Extremity: Shoulder flexors 4/5. Shoulder abductors 4/5. Elbow flexors 4/5. Elbow extensors 4/5. Sand Tester strong. Left Upper Extremity: Shoulder flexors 4/5. Shoulder abductors 4/5. Elbow flexors 4/5. Elbow extensors 4/5. Sand Tester strong. Right Lower Extremity: Hip flexors 4/5. Hip abductors 4/5. Knee flexors 4/5. Knee extensors 4/5. Right Lower Extremity:Hip flexors 4/5. Hip abductors 4/5. Knee flexors 4/5. Knee extensors 4/5. BED MOBILITY LEVELS/TRANSFERS Rolling moderate assist Supine to sit moderate assist Sit to supine moderate assist Sit to stand NT Stand to sit NT Bed to chair NT Chair to bed NT Gait: NT Balance: Static Sitting: Good Dynamic Sitting: Fair Static Standing: NT Dynamic Standing: NT Special Tests: Mobility Limitations Standardized Measure [facility] AM-PAC 6 clicks Basic Mobility Inpatient Short Form: Raw Score: 15 CMS Score: 58% deficit Informed Consent/Education: Patient instructed in purpose of PT consult and plan of care. Patient was instructed with correct techniques for pursed lip breathing and and doing better level exercises. Assessment: Patient is a 63 year old male referred to physical therapy services with the diagnosis of community-acquired pneumonia, controlled diabetes mellitus mellitus. Patient presents with clinical signs and symptoms consistent with current/admitting diagnoses that have resulted to mobility limitations, gait instability, generalized weakness, and impairment of motor control as demonstrated by the following impairment level findings: 1. Decreased strength to B LE major muscle groups 2. Impaired sittingbalance 3. Impaired activity tolerance 4. Bilateral residual limb swelling and erythema preventing use of bilateral below-knee prosthesis Impairments are contributing to the following functional limitations: 1. Requires assistance with bed mobility skills 2. Increased dependence with transfers 3. Inability to safely ambulate 4. Increase completion time for mobility ADL performance 5. Increased fall risk Patient is assessed as a Moderate 45660 complexity based on the following: History: 63-year-old obese male with diagnosis of community-acquired pneumonia and uncontrolled diabetes who is a bilateral below-knee amputee of over 10 years and is currently on immunosuppression due to previous renal transplant Examination: Underlying impairments and functional limitations as noted above Presentation: Unstable Decision Makin moderate complexity Goals: Goals X1 week 1. Supine-Sit independent 2. Sit-Supine independent 3. Sit-Stand independent 4. Stand-Sit independent 5. Bed-Chair independent 6. Chair-Bed independent 7. Independent gait on level surface with use of least restrictive device for at least 30 feet without report of pain nor dyspnea with use of bilateral below- knee prostheses and front-wheeled walker 8. Independent with home exercise program 9. Good static and dynamic standing balance/tolerance Plan of Care/Treatment Plan: 1-2x/day, 7 days/week x 1 week. Plan of care has been reviewed with the TUBE MAKING MACHINE OPERATOR providing the service under Physical Therapy direction. Initiate Physical Therapy intervention for strengthening, bed mobility, transfers, gait, stairs, balance training, use of assistive device. DISCHARGE RECOMMENDATIONS: Patient will highly benefit from short-term home health physical therapy services in order to maximize functional mobility level, reduce fall risk, and [place] [address] functional maintenance program. TREATMENT CODE/TIME: 72946 25 minutes, 87154 15 minutes, 01916 12 minutes beginning at 12:55 PM. Thank you for this referral. Alda Walter, PT, DPT, CLT [facility]
[2018-11-15 06:52] LABS: Abs Immature Grans 0.01 k/cumm (0.0-0.09); Absolute Basophil Count 0.04 k/cumm (0.0-0.2); Absolute Eosinophil Count 0.38 k/cumm (0.0-0.7); Absolute Monocyte Count 0.99 k/cumm (0.11-0.7); Absolute Neutrophil Count 3.68 k/cumm (1.2-6.7); Basophils % 0.5; Eosinophils % 4.9; HCT 35.5 % (40.0-50.0); HGB 10.8 g/dL (13.5-17.5); Immature Grans % 0.1; Lymphocytes % 34.6; Mean Corp. HGB Concentration 30.4 g/dL (32.0-36.0); Mean Corpuscular Hemoglobin 29.8 pg (27.0-33.0); Mean Corpuscular Volume 97.8 fL (80-95); Mean Platelet Volume 8.9 fL (8.0-11.0); Monocytes % 12.7; Neutrophils % 47.2; Platelet Count 202 x1000/uL (130-400); RBC 3.63 m/cumm (4.50-6.00); RBC Distribution Width 15.1 % (11.8-14.1)
[2018-11-15 07:20] LABS: Anion Gap 9.4 mmol/L (3-11); BUN 44 mg/dL (7-18); CO2 21.6 mmol/L (21.0-32.0); CREATININE 2.74 mg/dL (0.70-1.30); Calcium 8.7 mg/dL (8.5-10.1); Chloride 107 mmol/L (98-107); Estimated GFR 23.43 (mL/min/1.73m2); Glucose 83 mg/dL (70-100); Magnesium 1.7 mg/dL (1.8-2.4); Potassium 4.4 mmol/L (3.5-5.1); Sodium 138 mmol/L (136-145)
[2018-11-15] MEDS: MAGNESIUM SULFATE 1 GM/100 ML BAG IVPB (09:08)
[2018-11-15] MEDS: Omeprazole 20 MG CAPCR 40 MG PO (09:13)
[2018-11-15] MEDS: Propranolol 40 MG TAB 160 MG PO ×2 (09:14→13:49)
[2018-11-15] MEDS: Folic Acid 1 MG TAB PO (09:14)
[2018-11-15] MEDS: Atorvastatin 20 MG TAB PO (09:14)
[2018-11-15] MEDS: Montelukast 10 MG TAB PO (09:15)
[2018-11-15] MEDS: Multivitamin TAB 1 TAB PO (09:15)
[2018-11-15] MEDS: Gabapentin 300 MG CAP 900 MG PO ×2 (09:15→13:50)
[2018-11-15] MEDS: Aspirin E.C. 81 MG TABEC PO (09:15)
[2018-11-15] MEDS: Benzonatate 100 MG CAP PO ×2 (09:15→13:50)
[2018-11-15] MEDS: guaiFENesin 600 MG TABCR PO (09:15)
--- NOTE | 2018-11-15 10:47 | OT.INTREAT ---
Date of service: 11/15/18 Time of Service: 10:05 Occupational Therapy Notes Occupational Therapy Inpatient Treatment Note Date: 11/15/18 PRECAUTIONS: Fall. Standard SUBJECTIVE: Pt was sitting in bed when OT arrived. He was agreeable to OT session. OBJECTIVE: PAIN:no c/o pain BATHING: Max (A) Set up, sitting in bed Upper Body: (I) face, (B) UE, abdomen with max (A) back and min vc for body positioning Lower Body: (I) DRESSING: Sitting in bed Upper Extremity: (I) don and doffing [facility] gown GROOMING: Sitting in bed, (I) brushing teeth ASSESSMENT/PLAN: Pt functionally is unable to don and doff prothesis at this time d/t swellng. Pt with (A) set up is able to perform dressing and bathing. He is waiting to be transferred to [facility] and would benefit from skilled OT services for increased (I) in ADL routines. Next session would like to transition pt to edge of bed for increased (I) in functional dynamic ADLs. TREATMENT CODES/TIME: [id number], 25 minutes (10:05) Rose Schulz OTR/[facility]
--- NOTE | 2018-11-15 10:53 | OTTR_ITS ---
Date of service: 11/15/18 Time of Service: 10:05 Occupational Therapy Notes Occupational Therapy Inpatient Treatment Note Date: 11/15/18 PRECAUTIONS: Fall. Standard SUBJECTIVE: Pt was sitting in bed when OT arrived. He was agreeable to OT session. OBJECTIVE: PAIN:no c/o pain BATHING: Max (A) Set up, sitting in bed Upper Body: (I) face, (B) UE, abdomen with max (A) back and min vc for body positioning Lower Body: (I) DRESSING: Sitting in bed Upper Extremity: (I) don and doffing [facility] gown GROOMING: Sitting in bed, (I) brushing teeth ASSESSMENT/PLAN: Pt functionally is unable to don and doff prothesis at this time d/t swellng. Pt with (A) set up is able to perform dressing and bathing. He is waiting to be transferred to [facility] and would benefit from skilled OT services for increased (I) in ADL routines. Next session would like to transition pt to edge of bed for increased (I) in functional dynamic ADLs. TREATMENT CODES/TIME: [id number], 25 minutes (10:05) Rose Schulz OTR/[facility]
[2018-11-15] MEDS: Tacrolimus 0.5 MG CAP 1 MG PO (11:09)
[2018-11-15] MEDS: Insulin Aspart 300 UNITS/3 ML PEN SC (12:38)
--- NOTE | 2018-11-15 13:07 | W.PM.DS.N ---
Date of service: 11/15/18 Time of Service: 13:07 DS: Diagnosis Discharge Diagnosis (1) Sepsis: Status: Acute (2) CAP (community acquired pneumonia): Status: Acute (3) Acute kidney injury superimposed on chronic kidney disease: Status: Acute Asessment and Plan: due to suspected prograf toxicity (4) Kidney transplant recipient: Status: Chronic (5) Atrial fibrillation: Status: Chronic (6) Hyperkalemia: Status: Resolved (7) Diastolic CHF: Status: Acute (8) Uncontrolled insulin dependent diabetes mellitus: Status: Acute (9) Hypertension: Status: Chronic (10) Hyperlipidemia: Status: Chronic (11) Ambulatory dysfunction: Status: Acute (12) MELISSA (obstructive sleep apnea): Status: Chronic Discharge Plan Disposition Patient Disposition: [facility] Condition: Stable Discharge Details Reason For Visit: PNEUMONIA,HYPERKALEMIA WITH DEHYDRATION AND CKD 3 Admit Date/Time: 11/13/18 01:45 Admit Provider: Angel Thorpe Attending Provider: Angel Thorpe Primary Care Provider: Violetta Sanford [facility] Course Hospital Course: Mr Torres is a 63 year old male with PMHx of kidney transplant in 2007, maintained on mycophenolate and tacrolimus therapy, as well as poorly controlled IDDM2, s/p B BKA, CAD, Hypertension, hyperlipidemia, chronic diastolic CHF, MELISSA, who was admitted to [facility] on 11/13/18 with CAP (LLL infiltrate seen on CT of his abdomen/pelvis), ANSELMO on CKD due to suspected prograf toxicity, as well as borderline hyperkalemia. He did meet criteria for sepsis. His blood cultures are negative to date. Rapid flu was negative. The patient's cough has not been productive - no sputum culture was able to be obtained. There is no evidence of UTI. The patient was treated with doxycycline and aztreonam, with which he defervesced. He was hydrated intravenously, with resolution of his borderline hyperkalemia (potassium is 4.4 today, down from 5.5), but his creatinine did not improve with 2 trials of of IVF on this admission, and we feel that he got fluid overloaded. His creatinine is 2.75, up from the baseline of 1.8-2.2. It was 2.54 on admission. The patient's blood glucoses have were difficult to control initially and he did require transfer to our ICU for insulin drip therapy. However, he has been off of the insulin drip for more than 24 hours now and, even though he is on less than his home doses of his insulins, did become hypoglycemic overnight last night, so his glucoses need to be carefully monitored and insulins continuously adjusted. It is also important to note that the patient went into rate-controlled Atrial fibrillation on 11/14/18, but converted to SR with 1st degree block on his own. He is normally on propranolol, on which he was maintained. He was not initiated on systemic anticoagulation due to his potential fall risk and a single occurence of this event. There is no evidence of ACS. An echocardiogram has been ordered, but not yet obtained - this should be obtained at [facility], if possible. Because the suspected mechanism for kidney injury is prograf toxicity, Dr Garnett, patient's transplant fashion buying internship at [facility], did recommend to us that we hold the prograf temporarily. It was resumed per his recommendation today in order to avoid transplant rejection, at a half of his normal dose (he would normally take 1 mg PO BID; he is now on 1 mg PO daily). However, we still do not have information as to what his prograf level actually is because it is a send out lab at our facility. [facility] does not have beds for medical surgical patients at this time. The patient was accepted in transfer to [facility] under Dr Diaz of hospitalist medicine after discussion of the case with [facility] transplant medicine. On discharge planning, it is important to note that the patient would not be able to follow up with his transplant fashion buying internship, Dr Garnett, as an outpatient for at least a week as he will be out of town. The patient is in agreement with this transfer. We appreciate the assistance of our [facility] colleagues and wish the patient well! Home Meds and New Rx's Prescriptions: New ipratropium-albuterol 0.5 mg-3 mg(2.5 mg base)/3 mL Solution For Nebulization 3 ml UPD Q6H Qty: 0 RF: 0 gabapentin 300 mg Capsule 600 mg PO TID Qty: 0 RF: 0 nystatin 100,000 unit/mL Suspension 500,000 units PO 5X/DAY Qty: 0 RF: 0 doxycycline hyclate [Doxy-100] 100 mg Recon Soln 100 mg IVPB Q12H Qty: 0 RF: 0 benzonatate 100 mg Capsule 100 mg PO TID Qty: 0 RF: 0 tacrolimus 0.5 mg Capsule 1 mg PO DAILY Qty: 0 RF: 0 Novolog Flexpen U-100 Insulin 100 unit/mL Insulin Pen subcut 0800,1200,1700 Qty: 0 RF: 0 Levemir FlexTouch U-100 Insuln 100 unit/mL (3 mL) Insulin Pen 40 units subcut HS Qty: 0 RF: 0 guaifenesin [Mucinex] 600 mg Tablet Extended Release 12hr 600 mg PO BID Qty: 0 RF: 0 Continued mycophenolate mofetil [CellCept] 250 mg capsule 500 mg PO BID RF: 0 folic acid 1 mg tablet 1 mg PO DAILY RF: 0 Humalog KwikPen Insulin 100 unit/mL insulin pen See Patient Comments SC BID RF: 0 glucagon HCl 1 mg recon soln 1 mg IM ONCE PRNRF: 0 propranolol [Inderal LA] 160 MG capsule,extended release 24 hr 160 mg PO TID RF: 0 aspirin [Aspirin Low Dose] 81 MG tablet,delayed release (DR/EC) 81 mg PO DAILY RF: 0 omeprazole [Prilosec] 40 MG capsule,delayed release(DR/EC) 40 mg PO DAILY RF: 0 montelukast 10 MG tablet 10 mg PO DAILY RF: 0 multivitamin [Daily Multi-Vitamin] 1 EACH tablet 1 ea PO DAILY RF: 0 cholecalciferol (vitamin D3) [Vitamin D3] 2,000 UNIT tablet 2,000 unit PO DAILY RF: 0 fluticasone propionate 16 GM spray,suspension 2 spry NS DAILY PRNRF: 0 albuterol sulfate [ProAir HFA] 200 PUFF HFA aerosol inhaler 2 puff Inhalation PRN PRNRF: 0 albuterol sulfate [Ventolin HFA] 90 mcg/actuation Hfa Aerosol Inhaler 90 mcg Inhalation RF: 0 mycophenolate mofetil [CellCept] 250 mg Capsule 500 mg PO BID RF: 0 atorvastatin [Lipitor] 20 MG tablet 1 tab PO DAILY RF: 0 Discontinued Victoza 2-Nigel 0.6 mg/0.1 mL (18 mg/3 mL) pen injector 1.8 mg SC DAILY RF: 0 tacrolimus [Prograf] 1 MG capsule 1 mg PO BID RF: 0 gabapentin 300 MG capsule 900 mg PO TID RF: 0 Stiolto Respimat 2.5-2.5 mcg/actuation Mist 2.5 mcg Inhalation DAILY RF: 0 Levemir FlexTouch U-100 Insuln 300 UNITS/3 ML insulin pen 80 units Sub-Q QPM RF: 0 Levemir FlexTouch U-100 Insuln 300 UNITS/3 ML insulin pen 50 units Sub-Q QAM RF: 0 losartan 25 MG tablet 0.5 tab PO DAILY RF: 0 Discharge Instructions Activity:: Activity as Tolerated Equipment/Supplies:: No Equipment Needed Diet:: Carb Counting Discharge Orders Discharge Orders: Discharge Order (Routine); Ordered 11/15/18 Ordered By: Kayleigh Calvin Exam Narrative Exam Narrative: General: obese male, sitting up in bed, not tachypneic, on room air, pale HEENT: EOMI, MMM Heart: RRR, no m/r/g Lungs: Rales L base GI: abdomen is soft, nontender, nondistended Extremities: s/p B BKA; B stumps well healed; wearing BLE prostheses DS: Data Vitals/I&O Vitals and I&O: Vital Signs Temperature 36 C L 11/15/18 08:21 Temperature Source Temporal Artery Scan 11/15/18 08:21 Pulse 67 11/15/18 11:20 Pulse Rhythm Regular 11/13/18 12:16 Pulse 69 11/15/18 11:21 Respiratory Rate 19 11/15/18 11:21 Respiratory Effort 11/15/18 08:21 Respiratory Depth Normal 11/15/18 08:21 Respiratory Pattern Normal 11/15/18 08:21 Blood Pressure 118/61 11/15/18 11:20 Blood Pressure Mean 74 11/15/18 11:20 Blood Pressure Position Supine 11/15/18 08:21 Pulse Oximetry 98 11/15/18 11:10 Oxygen Delivery Method Room Air 11/15/18 08:21 Oxygen Flow Rate 0 11/15/18 08:21 Pain Level 0 11/15/18 08:21 Intake & Output 11/14/18 11/15/18 11/15/18 23:59 11:59 23:59 Intake Total 786.25 / 1236.25 560 / 760 200 / 760 Output Total 1100 / 2350 600 / 600 Balance -313.75 / -1113.75 -40 / 160 200 / 160 Weight 146.1 kg Intake: IV 686.25 / 886.25 200 / 400 200 / 400 Oral 100 / 350 360 / 360 Output: Urine 1100 / 2350 600 / 600 Other: Urine Color Yellow Yellow Urine Appearance Clear Clear Urine Odor Normal Normal Comment Voided 450 cc of dark, yellow urine at this time. Trace protein, pH of 5 and SG of 1.015. Denies burning or pain. Voiding Methods Urinal Urinal Completed studies during hospitalization [Text1]: CXR 11/12/18: Question of left lower lobe infiltrate versus atelectasis. Soft tissue edema is seen in the anterior abdominal wall. Left lower quadrant renal transplant shows no evidence of hydronephrosis. CT abdomen/pelvis 11/12/18: Question of left lower lobe infiltrate versus atelectasis. Soft tissue edema is seen in the anterior abdominal wall. Left lower quadrant renal transplant shows no evidence of hydronephrosis. Labs on day of discharge: Labs from last 24 hours 11/15/18 11/15/18 11/14/18 06:20 06:20 22:10 WBC 7.80 RBC 3.63 L Hgb 10.8 L Hct 35.5 L MCV 97.8 H MCH 29.8 MCHC 30.4 L RDW 15.1 H Plt Count 202 MPV 8.9 Immature Gran % 0.1 Neutrophils % 47.2 Lymphocytes % 34.6 Monocytes % 12.7 Eosinophils % 4.9 Basophils % 0.5 Absolute Neutrophils 3.68 Absolute Lymphocytes 2.70 Absolute Monocytes 0.99 H Absolute Eosinophils 0.38 Absolute Basophils 0.04 Sodium 138 Potassium 4.4 Chloride 107 Carbon Dioxide 21.6 Anion Gap 9.4 BUN 44 H D Creatinine 2.74 H Estimated GFR/1.73 m2 23.43 Glucose 83 Calcium 8.7 Magnesium 1.7 L Troponin I 0.02 11/14/18 16:05 WBC RBC Hgb Hct MCV MCH MCHC RDW Plt Count MPV Immature Gran % Neutrophils % Lymphocytes % Monocytes % Eosinophils % Basophils % Absolute Neutrophils Absolute Lymphocytes Absolute Monocytes Absolute Eosinophils Absolute Basophils Sodium Potassium Chloride Carbon Dioxide Anion Gap BUN Creatinine Estimated GFR/1.73 m2 Glucose Calcium Magnesium Troponin I < 0.02 Preliminary micro results at discharge 11/12/18 23:46 Blood Culture - Preliminary Blood NO GROWTH 48 HOURS 11/12/18 22:51 Blood Culture - Preliminary Blood NO GROWTH 48 HOURS [facility] Medical History Anxiety and depression (Acute) Erectile dysfunction (Acute) Gastroparesis diabeticorum (Acute) Hydrocele (Acute) Hyperlipidemia (Acute) Intention tremor (Acute) Lumbar back pain (Acute) Macrocytic anemia (Acute) Sciatica (Acute) Stage 3 severe COPD by GOLD classification (Acute) Tricuspid insufficiency (Acute) Diabetes mellitus (Chronic) HTN (hypertension) (Chronic) MELISSA (obstructive sleep apnea) (Chronic) Obesity (Chronic) COPD (chronic obstructive pulmonary disease) GERD (gastroesophageal reflux disease) LEFT FOREARM AV FISTULA MELISSA (obstructive sleep apnea) Surgical History Hx of amputation below knee (Acute) Kidney transplant recipient (Acute) Colonoscopy - MAC (02/01/17) EGD - MAC (04/02/16) Family History Brother Personal history of malignant neoplasm Social History Smoking/Tobacco Use Status: Former Tobacco Use Alcohol Intake: never Drug use: Never Do you feel safe at home: Yes Do you feel safe in your relationship?: Yes
--- NOTE | 2018-11-15 13:18 | DSE_ITS ---
Date of service: 11/15/18 Time of Service: 13:07 DS: Diagnosis Discharge Diagnosis (1) Sepsis: Status: Acute (2) CAP (community acquired pneumonia): Status: Acute (3) Acute kidney injury superimposed on chronic kidney disease: Status: Acute Asessment and Plan: due to suspected prograf toxicity (4) Kidney transplant recipient: Status: Chronic (5) Atrial fibrillation: Status: Chronic (6) Hyperkalemia: Status: Resolved (7) Diastolic CHF: Status: Acute (8) Uncontrolled insulin dependent diabetes mellitus: Status: Acute (9) Hypertension: Status: Chronic (10) Hyperlipidemia: Status: Chronic (11) Ambulatory dysfunction: Status: Acute (12) MELISSA (obstructive sleep apnea): Status: Chronic Discharge Plan Disposition Patient Disposition: [facility] Condition: Stable Discharge Details Reason For Visit: PNEUMONIA,HYPERKALEMIA WITH DEHYDRATION AND CKD 3 Admit Date/Time: 11/13/18 01:45 Admit Provider: Angel Thorpe Attending Provider: Angel Thorpe Primary Care Provider: Violetta Sanford [facility] Course Hospital Course: Mr Torres is a 63 year old male with PMHx of kidney transplant in 2007, maintained on mycophenolate and tacrolimus therapy, as well as poorly controlled IDDM2, s/p B BKA, CAD, Hypertension, hyperlipidemia, chronic diastolic CHF, MELISSA, who was admitted to [facility] on 11/13/18 with CAP (LLL infiltrate seen on CT of his abdomen/pelvis), ANSELMO on CKD due to suspected prograf toxicity, as well as borderline hyperkalemia. He did meet criteria for sepsis. His blood cultures are negative to date. Rapid flu was negative. The patient's cough has not been productive - no sputum culture was able to be obtained. There is no evidence of UTI. The patient was treated with doxycycline and aztreonam, with which he defervesced. He was hydrated intravenously, with resolution of his borderline hyperkalemia (potassium is 4.4 today, down from 5.5), but his creatinine did not improve with 2 trials of of IVF on this admission, and we feel that he got fluid overloaded. His creatinine is 2.75, up from the baseline of 1.8-2.2. It was 2.54 on admission. The patient's blood glucoses have were difficult to control initially and he did require transfer to our ICU for insulin drip therapy. However, he has been off of the insulin drip for more than 24 hours now and, even though he is on less than his home doses of his insulins, did become hypoglycemic overnight last night, so his glucoses need to be carefully monitored and insulins continuously adjusted. It is also important to note that the patient went into rate-controlled Atrial fibrillation on 11/14/18, but converted to SR with 1st degree block on his own. He is normally on propranolol, on which he was maintained. He was not initiated on systemic anticoagulation due to his potential fall risk and a single occurence of this event. There is no evidence of ACS. An echocardiogram has been ordered, but not yet obtained - this should be obtained at [facility], if possible. Because the suspected mechanism for kidney injury is prograf toxicity, Dr Garnett, patient's transplant media arts professor at [facility], did recommend to us that we hold the prograf temporarily. It was resumed per his recommendation today in order to avoid transplant rejection, at a half of his normal dose (he would normally take 1 mg PO BID; he is now on 1 mg PO daily). However, we still do not have information as to what his prograf level actually is because it is a send out lab at our facility. [facility] does not have beds for medical surgical patients at this time. The patient was accepted in transfer to [facility] under Dr Diaz of hospitalist medicine after discussion of the case with [facility] transplant medicine. On discharge planning, it is important to note that the patient would not be able to follow up with his transplant media arts professor, Dr Garnett, as an outpatient for at least a week as he will be out of town. The patient is in agreement with this transfer. We appreciate the assistance of our [facility] colleagues and wish the patient well! Home Meds and New Rx's Prescriptions: New ipratropium-albuterol 0.5 mg-3 mg(2.5 mg base)/3 mL Solution For Nebulization 3 ml UPD Q6H Qty: 0 RF: 0 gabapentin 300 mg Capsule 600 mg PO TID Qty: 0 RF: 0 nystatin 100,000 unit/mL Suspension 500,000 units PO 5X/DAY Qty: 0 RF: 0 doxycycline hyclate [Doxy-100] 100 mg Recon Soln 100 mg IVPB Q12H Qty: 0 RF: 0 benzonatate 100 mg Capsule 100 mg PO TID Qty: 0 RF: 0 tacrolimus 0.5 mg Capsule 1 mg PO DAILY Qty: 0 RF: 0 Novolog Flexpen U-100 Insulin 100 unit/mL Insulin Pen subcut 0800,1200,1700 Qty: 0 RF: 0 Levemir FlexTouch U-100 Insuln 100 unit/mL (3 mL) Insulin Pen 40 units subcut HS Qty: 0 RF: 0 guaifenesin [Mucinex] 600 mg Tablet Extended Release 12hr 600 mg PO BID Qty: 0 RF: 0 Continued mycophenolate mofetil [CellCept] 250 mg capsule 500 mg PO BID RF: 0 folic acid 1 mg tablet 1 mg PO DAILY RF: 0 Humalog KwikPen Insulin 100 unit/mL insulin pen See Patient Comments SC BID RF: 0 glucagon HCl 1 mg recon soln 1 mg IM ONCE PRNRF: 0 propranolol [Inderal LA] 160 MG capsule,extended release 24 hr 160 mg PO TID RF: 0 aspirin [Aspirin Low Dose] 81 MG tablet,delayed release (DR/EC) 81 mg PO DAILY RF: 0 omeprazole [Prilosec] 40 MG capsule,delayed release(DR/EC) 40 mg PO DAILY RF: 0 montelukast 10 MG tablet 10 mg PO DAILY RF: 0 multivitamin [Daily Multi-Vitamin] 1 EACH tablet 1 ea PO DAILY RF: 0 cholecalciferol (vitamin D3) [Vitamin D3] 2,000 UNIT tablet 2,000 unit PO DAILY RF: 0 fluticasone propionate 16 GM spray,suspension 2 spry NS DAILY PRNRF: 0 albuterol sulfate [ProAir HFA] 200 PUFF HFA aerosol inhaler 2 puff Inhalation PRN PRNRF: 0 albuterol sulfate [Ventolin HFA] 90 mcg/actuation Hfa Aerosol Inhaler 90 mcg Inhalation RF: 0 mycophenolate mofetil [CellCept] 250 mg Capsule 500 mg PO BID RF: 0 atorvastatin [Lipitor] 20 MG tablet 1 tab PO DAILY RF: 0 Discontinued Victoza 2-Nigel 0.6 mg/0.1 mL (18 mg/3 mL) pen injector 1.8 mg SC DAILY RF: 0 tacrolimus [Prograf] 1 MG capsule 1 mg PO BID RF: 0 gabapentin 300 MG capsule 900 mg PO TID RF: 0 Stiolto Respimat 2.5-2.5 mcg/actuation Mist 2.5 mcg Inhalation DAILY RF: 0 Levemir FlexTouch U-100 Insuln 300 UNITS/3 ML insulin pen 80 units Sub-Q QPM RF: 0 Levemir FlexTouch U-100 Insuln 300 UNITS/3 ML insulin pen 50 units Sub-Q QAM RF: 0 losartan 25 MG tablet 0.5 tab PO DAILY RF: 0 Discharge Instructions Activity:: Activity as Tolerated Equipment/Supplies:: No Equipment Needed Diet:: Carb Counting Discharge Orders Discharge Orders: Discharge Order (Routine); Ordered 11/15/18 Ordered By: Kayleigh Calvin Exam Narrative Exam Narrative: General: obese male, sitting up in bed, not tachypneic, on room air, pale HEENT: EOMI, MMM Heart: RRR, no m/r/g Lungs: Rales L base GI: abdomen is soft, nontender, nondistended Extremities: s/p B BKA; B stumps well healed; wearing BLE prostheses DS: Data Vitals/I&O Vitals and I&O: Vital Signs Temperature 36 C L 11/15/18 08:21 Temperature Source Temporal Artery Scan 11/15/18 08:21 Pulse 67 11/15/18 11:20 Pulse Rhythm Regular 11/13/18 12:16 Pulse 69 11/15/18 11:21 Respiratory Rate 19 11/15/18 11:21 Respiratory Effort 11/15/18 08:21 Respiratory Depth Normal 11/15/18 08:21 Respiratory Pattern Normal 11/15/18 08:21 Blood Pressure 118/61 11/15/18 11:20 Blood Pressure Mean 74 11/15/18 11:20 Blood Pressure Position Supine 11/15/18 08:21 Pulse Oximetry 98 11/15/18 11:10 Oxygen Delivery Method Room Air 11/15/18 08:21 Oxygen Flow Rate 0 11/15/18 08:21 Pain Level 0 11/15/18 08:21 Intake & Output 11/14/18 11/15/18 11/15/18 23:59 11:59 23:59 Intake Total 786.25 / 1236.25 560 / 760 200 / 760 Output Total 1100 / 2350 600 / 600 Balance -313.75 / -1113.75 -40 / 160 200 / 160 Weight 146.1 kg Intake: IV 686.25 / 886.25 200 / 400 200 / 400 Oral 100 / 350 360 / 360 Output: Urine 1100 / 2350 600 / 600 Other: Urine Color Yellow Yellow Urine Appearance Clear Clear Urine Odor Normal Normal Comment Voided 450 cc of dark, yellow urine at this time. Trace protein, pH of 5 and SG of 1.015. Denies burning or pain. Voiding Methods Urinal Urinal Completed studies during hospitalization [Text1]: CXR 11/12/18: Question of left lower lobe infiltrate versus atelectasis. Soft tissue edema is seen in the anterior abdominal wall. Left lower quadrant renal transplant shows no evidence of hydronephrosis. CT abdomen/pelvis 11/12/18: Question of left lower lobe infiltrate versus atelectasis. Soft tissue edema is seen in the anterior abdominal wall. Left lower quadrant renal transplant shows no evidence of hydronephrosis. Labs on day of discharge: Labs from last 24 hours 11/15/18 11/15/18 11/14/18 06:20 06:20 22:10 WBC 7.80 RBC 3.63 L Hgb 10.8 L Hct 35.5 L MCV 97.8 H MCH 29.8 MCHC 30.4 L RDW 15.1 H Plt Count 202 MPV 8.9 Immature Gran % 0.1 Neutrophils % 47.2 Lymphocytes % 34.6 Monocytes % 12.7 Eosinophils % 4.9 Basophils % 0.5 Absolute Neutrophils 3.68 Absolute Lymphocytes 2.70 Absolute Monocytes 0.99 H Absolute Eosinophils 0.38 Absolute Basophils 0.04 Sodium 138 Potassium 4.4 Chloride 107 Carbon Dioxide 21.6 Anion Gap 9.4 BUN 44 H D Creatinine 2.74 H Estimated GFR/1.73 m2 23.43 Glucose 83 Calcium 8.7 Magnesium 1.7 L Troponin I 0.02 11/14/18 16:05 WBC RBC Hgb Hct MCV MCH MCHC RDW Plt Count MPV Immature Gran % Neutrophils % Lymphocytes % Monocytes % Eosinophils % Basophils % Absolute Neutrophils Absolute Lymphocytes Absolute Monocytes Absolute Eosinophils Absolute Basophils Sodium Potassium Chloride Carbon Dioxide Anion Gap BUN Creatinine Estimated GFR/1.73 m2 Glucose Calcium Magnesium Troponin I < 0.02 Preliminary micro results at discharge 11/12/18 23:46 Blood Culture - Preliminary Blood NO GROWTH 48 HOURS 11/12/18 22:51 Blood Culture - Preliminary Blood NO GROWTH 48 HOURS [facility] Medical History Anxiety and depression (Acute) Erectile dysfunction (Acute) Gastroparesis diabeticorum (Acute) Hydrocele (Acute) Hyperlipidemia (Acute) Intention tremor (Acute) Lumbar back pain (Acute) Macrocytic anemia (Acute) Sciatica (Acute) Stage 3 severe COPD by GOLD classification (Acute) Tricuspid insufficiency (Acute) Diabetes mellitus (Chronic) HTN (hypertension) (Chronic) MELISSA (obstructive sleep apnea) (Chronic) Obesity (Chronic) COPD (chronic obstructive pulmonary disease) GERD (gastroesophageal reflux disease) LEFT FOREARM AV FISTULA MELISSA (obstructive sleep apnea) Surgical History Hx of amputation below knee (Acute) Kidney transplant recipient (Acute) Colonoscopy - MAC (02/01/17) EGD - MAC (04/02/16) Family History Brother Personal history of malignant neoplasm Social History Smoking/Tobacco Use Status: Former Tobacco Use Alcohol Intake: never Drug use: Never Do you feel safe at home: Yes Do you feel safe in your relationship?: Yes
--- NOTE | 2018-11-15 13:30 | CHAPLAIN ---
Reuben was visiting with his when I visited. He pointed out the illustration that the doctor had drawn on the whiteboard, telling me that my kidneys were failing and now my heart is failing. He said he is waiting for a bed at [facility] to open up so that he can be cared for at a place where patients who have had organ transplants are cared for by specialty physicians. Reuben's niece Jeremie Jay is a Center nurse at [facility] [employer], and she and her , Abundio Granger, an [facility] ICU nurse, have both been visiting.
[2018-11-15] MEDS: Nystatin 500000 UNITS/5 ML SUSP 5ML CUP PO (13:50)
[2018-11-15] MEDS: Normal Saline Flush 10 ML SYR IVP (13:50)
[2018-11-15 13:58] LABS: Tacrolimus 3.8 ng/ml
--- NOTE | 2018-11-15 14:04 | PDOC.CMPRO ---
- If Service Date Differs Date of service: 11/15/18 Time of Service: 14:04 Care Management Progress Note CM met with Leroy and his family at the bedside. Reuben is being transferred to [facility] today his family is aware and present. CM updated HIPPA directive with the patient at his request, scanned to access and placed in Pt chart.
--- NOTE | 2018-11-15 14:09 | CMPROGNOTE_ITS ---
- If Service Date Differs Date of service: 11/15/18 Time of Service: 14:04 Care Management Progress Note CM met with Leroy and his family at the bedside. Reuben is being transferred to [facility] today his family is aware and present. CM updated HIPPA directive with the patient at his request, scanned to access and placed in Pt chart.
--- NOTE | 2018-11-15 19:21 | OT.INDS ---
Date of service: 11/15/18 Time of Service: 19:21 Occupational Therapy Notes Occupational Therapy Inpatient Discharge Summary Date: 11/15/18 Dates of Service: 11/14/18-11/15/18 Referring Doctor:Kayleigh Calvin MD OT Orders: Eval and Treat Precautions: Fall, Standard PATIENT PROFILE/ADMITTING DIAGNOSIS: Pt is a 63 year old male who was admitted through the ER on 11/13/18 for fever and pneumonia. Pt is s/p renal transplant on immune suppressants with bilateral BKA and prostheses. Past Medical History: Medical History Anxiety and depression (Acute) Erectile dysfunction (Acute) Gastroparesis diabeticorum (Acute) Hydrocele (Acute) Hyperlipidemia (Acute) Intention tremor (Acute) Lumbar back pain (Acute) Macrocytic anemia (Acute) Sciatica (Acute) Stage 3 severe COPD by GOLD classification (Acute) Tricuspid insufficiency (Acute) Diabetes mellitus (Chronic) HTN (hypertension) (Chronic) MELISSA (obstructive sleep apnea) (Chronic) Obesity (Chronic) COPD (chronic obstructive pulmonary disease) GERD (gastroesophageal reflux disease) LEFT FOREARM AV FISTULA MELISSA (obstructive sleep apnea) Surgical History Hx of amputation below knee (Acute) Kidney transplant recipient (Acute) Colonoscopy - MAC (02/01/17) EGD - MAC (04/02/16) Social History/Home Situation: Pt reports that he lives in a private home with his and 92 year old mother. He reports that prior to admission he was (I) in all ADLS/IADLs except with putting shoes and socks on his (B) prothesis which he reports his performs for him. He performs his bathing routine sitting in his wheelchair with sponge bathing. He does have a shower but reports that he cannot get the piece of his prothesis wet so he feels there is no way to shower. Pt is (I) with eating. He is (I) with dressing in the sitting position which he performs from side of bed or from wheelchair. He toilets on regular toilet (I). He is (I) in community mobility. He uses a regular and electric wheel chair for mobility. He reports that he is able to walk but not very far with (B) prothesis. He recently went through examination for a new wheelchair and has new (B) prosthesis but reports that he does not like them because they are uncomfortable. He attends Physical Therapy in an exercise outpatient program at [facility] in [place] with his mother. Pt reports that he did have HH PT for waking with prothesis (B) LE in the past. Equipment owned/DME: Wheelchair, electric wheelchair, (B) LE prothesis, shower chair, grab bars, trapeze bar for (I) bed mobility,FWW THIS DOCUMENT SERVES A SUMMARY OF CARE, NO SKILLED OT SERVICES PROVIDED FOR THIS DOCUMENTATION, PATIENT WAS SEEN EARLIER TODAY, PLEASE REFER TO NOTE. SUBJECTIVE: NT OBJECTIVE: General Observation: IV (R) UE, telemetry, (B) LE prothesis off Mental Status: A&Ox3 Pain: no c/o pain ROM: RUE AROM WNL L UE AROM WNL STRENGTH: RUE 5/5 throughout LUE 5/5 throughout SENSATION: Pt intact to light touch and sensation throughout (B) UE. FUNCTIONAL MOBILITY/ADLS: Supine-sit (I) with use of trapeze bar Sit-supine (I) With use of trapeze bar. ADLS PERFORMED DURING TODAYS TX SESSION, REFER TO NOTE FOR FULL DETAILS BATHING: Max (A) Set up, sitting in bed Upper Body: (I) face, (B) UE, abdomen with max (A) back and min vc for body positioning Lower Body: (I) DRESSING: Sitting in bed Upper Extremity: (I) [facility] gown GROOMING: Sitting in bed, (I) brushing teeth BALANCE: Static sitting Normal Dynamic Sitting Normal Static Standing Unable to test Dynamic Standing Unable to test ASSESSMENT: Patient is a 63-year-old male referred to occupational therapy services with diagnosis of fever and pneumonia. Pt is s/p renal transplant on immune suppressants with bilateral BKA and prostheses. Patient was seen for 2 skilled OT sessions. He was unable to obtain goals at this time however he was able to demonstrate increased functional (I) in the sitting position. However pt was unable to perform ADLs at side of bed prior to discharge. GOALS-NOT MET 1. Transfers (I) LRD 2. Dressing-sitting on side of bed (I) UE/LE clothing and (B) LE prothesis 3. Bathing- Sitting on side of bed (I) UE/LE 4. Toileting- on toilet (I) 5. Eating (I) 6. Grooming (I) standing at sink for brushing teeth with FWW, SBA PLAN OF CARE/TREATMENT PLAN: Discharge skilled OT services. DISCHARGE RECOMMENDATIONS Pt was transferred to [facility] for continuation of care. TREATMENT TIME/MINUTES/CODES N/A Rose Schulz OTR/L [facility]
--- NOTE | 2018-11-17 17:06 | PT.INDS ---
Date of service: 11/15/18 Time of Service: 11:19 PT Notes Inpatient Physical Therapy Discharge Summary Dates: 11/15/2018 Dates of Service: 11/14/2018 through 11/15/2018 Referring Doctor: Kayleigh Calvin MD PT Orders: PT CONSULT: Eval/treat Precautions: Fall. Standard. Patient Profile/Admitting Diagnosis: Patient is a 63-year-old male admitted on 11/13/18 with chief complaints of chills with fever, mild cough, and mild abdominal symptoms. Patient was diagnosed with acute on chronic kidney disease, community-acquired pneumonia and is status post renal transplant and is currently on immunosuppressants. He is also a bilateral knee amputee with bilateral prosthesis. PMHX: Medical History Anxiety and depression (Acute) Erectile dysfunction (Acute) Gastroparesis diabeticorum (Acute) Hydrocele (Acute) Hyperlipidemia (Acute) Intention tremor (Acute) Lumbar back pain (Acute) Macrocytic anemia (Acute) Sciatica (Acute) Stage 3 severe COPD by GOLD classification (Acute) Tricuspid insufficiency (Acute) Diabetes mellitus (Chronic) HTN (hypertension) (Chronic) MELISSA (obstructive sleep apnea) (Chronic) Obesity (Chronic) COPD (chronic obstructive pulmonary disease) GERD (gastroesophageal reflux disease) LEFT FOREARM AV FISTULA MELISSA (obstructive sleep apnea) Surgical History Hx of amputation below knee (Acute) Kidney transplant recipient (Acute) Colonoscopy - MAC (02/01/17) EGD - MAC (04/02/16) Social History/Home Situation: Patient lives with and with mother in their home with no stairs but with a ramp to enter. He states that he has been ambulatory inside his house without use of any assistive device although he states he has a 4WW and a cane at home. He elaborates that he was walking 2 weeks ago prior to admission. Patient states that he has family who lives close by who are very supportive of them. Patient has an ongoing request for a power wheelchair replacement/repair with the outpatient clinic. Equipment Owned/DME: FWW, [place] Subjective: Patient and family agreeable to a PT consult and treatment session. He states he is not febrile at this time but does report increased tremor on his right upper extremity. He reports no abdominal discomfort. Objective: General Observation: Patient seen lying in bed in conversation with , mother, niece, and nephew. IV in right UE. Blanchable erythema noted on ends of right and left residual limb where most of the weightbearing is. Swelling observed on bilateral residual limb with left more affected than the right. Mental Status: Alert and oriented x3 Pain: 0/10 ROM: Right Upper Extremity: Shoulder Flexion WFL. Shoulder abduction WFL. Elbow flexion WFL. Wrist flexion WFL. Functional opening and closing of hand WFL. Left Upper Extremity: Shoulder Flexion WFL. Shoulder abduction WFL. Elbow flexion WFL. Wrist flexion WFL. Functional opening and closing of hand WFL. Right Lower Extremity: Hip flexion WFL . Hip abduction WFL. Knee flexion WFL. Left Lower Extremity: Hip flexion WFL. Hip abduction WFL. Knee flexion WFL. Strength: Right Upper Extremity: Shoulder flexors 4/5. Shoulder abductors 4/5. Elbow flexors 4/5. Elbow extensors 4/5. Airplane Pilot Crop Dusting strong. Left Upper Extremity: Shoulder flexors 4/5. Shoulder abductors 4/5. Elbow flexors 4/5. Elbow extensors 4/5. Airplane Pilot Crop Dusting strong. Right Lower Extremity: Hip flexors 4/5. Hip extension 3-/5. Hip abductors 4/5. Knee flexors 4/5. Knee extensors 4/5. Right Lower Extremity:Hip flexors 4/5. Hip extension 3-/5. Hip abductors 4/5. Knee flexors 4/5. Knee extensors 4/5. BED MOBILITY LEVELS/TRANSFERS Rolling SBA Supine to sit SBA Sit to supine SBA Sit to stand minimal assist Stand to sit minimal assist Bed to chair minimal assist Chair to bed minimal assist Gait: Patient able to ambulate 75 feet x 2 using bariatric FW W with minimal assist provided by PT and CGA of RN along with a wheelchair follow of . Patient reported discomfort on end of residual limbs which subsided with rest. HR 76 bpm, oxygen saturation 96% on room air, BP of 133/50 3 mmHg with no reports of headache and dizziness throughout activity. Balance: Static Sitting: Good Dynamic Sitting: Good Static Standing: Fair Dynamic Standing: Fair Special Tests: Mobility Limitations Standardized Measure [facility] 6 clicks Basic Mobility Inpatient Short Form: Raw Score: 16 CMS Score: 55% deficit Assessment: Patient is a 63 year old male referred to physical therapy services with the diagnosis of community-acquired pneumonia, controlled diabetes mellitus mellitus. Patient presents with clinical signs and symptoms consistent with current/admitting diagnoses that have resulted to mobility limitations, gait instability, generalized weakness, and impairment of motor control as demonstrated by the following impairment level findings: 1. Decreased strength to B LE major muscle groups 2. Impaired sittingbalance 3. Impaired activity tolerance 4. Bilateral residual limb swelling and erythema preventing use of bilateral below-knee prosthesis Impairments are contributing to the following functional limitations: 1. Requires assistance with bed mobility skills 2. Increased dependence with transfers 3. Inability to safely ambulate 4. Increase completion time for mobility ADL performance 5. Increased fall risk Goals: Goals X1 week 1. Supine-Sit independent NOT MET 2. Sit-Supine independent NOT MET 3. Sit-Stand independent NOT MET 4. Stand-Sit independent NOT MET 5. Bed-Chair independent NOT MET 6. Chair-Bed independent NOT MET 7. Independent gait on level surface with use of least restrictive device for at least 30 feet without report of pain nor dyspnea with use of bilateral below-knee prostheses and front-wheeled walker NOT MET 8. Independent with home exercise program NOT MET 9. Good static and dynamic standing balance/tolerance NOT MET DISCHARGE RECOMMENDATIONS: Patient will highly benefit from home health physical therapy services in order to maximize functional mobility level, reduce fall risk, and facilitate patient/family/caregiver education and training on functional maintenance program. TREATMENT CODE/TIME: [id number] 56minutes beginning at 11:19 PM. Thank you for this referral. Alda Walter, PT, DPT, CLT [facility]
== END 2018-11-15 14:13 | DRG 871 ==
LOC: ER 11-13 01:46 → MS 11-13 02:22 → ICU 11-15 13:18 → MS 11-20 14:48
PROVIDERS: Admitting Provider Family Medicine; Emergency Provider Student in an Organized Health Care Education/Training Program; PCP Family Medicine; Visit Provider Internal Medicine
DX: A41.9 Sepsis, unspecified organism (principal); J18.9 Pneumonia, unspecified organism; N17.9 Acute kidney failure, unspecified; I13.0 Hypertensive heart and chronic kidney disease with heart failure and stage 1 through stage 4 chronic kidney disease, or unspecified chronic kidney disease; Z94.0 Kidney transplant status; I50.32 Chronic diastolic (congestive) heart failure; Z68.41 Body mass index [BMI] 40.0-44.9, adult; N18.3 Chronic kidney disease, stage 3 (moderate); E11.22 Type 2 diabetes mellitus with diabetic chronic kidney disease; E11.65 Type 2 diabetes mellitus with hyperglycemia; I48.91 Unspecified atrial fibrillation; T45.1X5A Adverse effect of antineoplastic and immunosuppressive drugs, initial encounter; E87.5 Hyperkalemia; Z79.4 Long term (current) use of insulin; E78.5 Hyperlipidemia, unspecified; R26.2 Difficulty in walking, not elsewhere classified; G47.33 Obstructive sleep apnea (adult) (pediatric); Z89.512 Acquired absence of left leg below knee; Z89.511 Acquired absence of right leg below knee; E87.70 Fluid overload, unspecified; F41.8 Other specified anxiety disorders; J44.9 Chronic obstructive pulmonary disease, unspecified; Z87.891 Personal history of nicotine dependence; E66.01 Morbid (severe) obesity due to excess calories
CPT/HCPCS: 36415; 80048; 80053; 87040; 87449; 93005; 94640; 96361; 96365; 96366; 96367; 96368; 97110; 97162; 97165; 97530; 97535; 99223; 99232; 99239; 99285; 99291; 71045; 74176; 80197; 81003; 81015; 83735; 84484; 85025; 87081; 87086; 93010; 99292; J0610; J1644; J3475; J3490; J7517; J7613; J7620

== ENCOUNTER 2018-11-21 01:44 | Outpatient (CLI) | payer OTHER, SELFPAY ==
[2018-11-21 11:12] LABS: HCT 36.5 % (40.0-50.0); HGB 11.1 g/dL (13.5-17.5); Mean Corp. HGB Concentration 30.4 g/dL (32.0-36.0); Mean Corpuscular Hemoglobin 29.4 pg (27.0-33.0); Mean Corpuscular Volume 96.8 fL (80-95); Mean Platelet Volume 8.7 fL (8.0-11.0); Platelet Count 282 x1000/uL (130-400); RBC 3.77 m/cumm (4.50-6.00); RBC Distribution Width 14.8 % (11.8-14.1); White Blood Cell Count 7.22 k/cumm (4.4-10.8)
[2018-11-21 11:20] LABS: ALT 39 U/L (12-78); AST 24 U/L (15-37); Albumin 2.8 g/dL (3.4-5.0); Alkaline Phosphatase 134 U/L (46-116); Anion Gap 10.5 mmol/L (3-11); BUN 33 mg/dL (7-18); Bilirubin, Total 0.5 mg/dL (0.2-1.0); CO2 22.5 mmol/L (21.0-32.0); CREATININE 1.93 mg/dL (0.70-1.30); Calcium 8.8 mg/dL (8.5-10.1); Chloride 107 mmol/L (98-107); Estimated GFR 35.11 (mL/min/1.73m2); Glucose 156 mg/dL (70-100); PHOSPHORUS 4.1 mg/dL (2.6-4.7); Potassium 5.2 mmol/L (3.5-5.1); Sodium 140 mmol/L (136-145); Total Protein 7.7 g/dL (6.4-8.2); Uric Acid 8.4 mg/dL (3.5-7.2)
[2018-11-21 14:28] LABS: Cholesterol 102 mg/dL (50-200)
[2018-11-22 13:22] LABS: Tacrolimus 5.1 ng/ml
== END 2018-11-21 02:04 ==
PROVIDERS: Internal Medicine Nephrology; PCP Family Medicine; Visit Provider Family Medicine
DX: Z94.0 Kidney transplant status; Z79.899 Other long term (current) drug therapy
CPT/HCPCS: 36415; 80053; 85027; 80197; 82465; 84100; 84550

== ENCOUNTER 2018-12-06 02:24 | Outpatient (CLI) | payer OTHER, SELFPAY ==
[2018-12-06 13:12] LABS: HCT 36.7 % (40.0-50.0); HGB 11.2 g/dL (13.5-17.5); Mean Corp. HGB Concentration 30.5 g/dL (32.0-36.0); Mean Corpuscular Hemoglobin 29.4 pg (27.0-33.0); Mean Corpuscular Volume 96.3 fL (80-95); Mean Platelet Volume 9.5 fL (8.0-11.0); Platelet Count 233 x1000/uL (130-400); RBC 3.81 m/cumm (4.50-6.00); RBC Distribution Width 14.3 % (11.8-14.1); White Blood Cell Count 6.98 k/cumm (4.4-10.8)
[2018-12-06 14:14] LABS: Cholesterol 96 mg/dL (50-200)
[2018-12-06 14:32] LABS: Hemoglobin A1C 7.7 % (4.5-6.2)
[2018-12-06 14:32] LABS: ALT 42 U/L (12-78); AST 26 U/L (15-37); Albumin 2.9 g/dL (3.4-5.0); Alkaline Phosphatase 153 U/L (46-116); Anion Gap 9.1 mmol/L (3-11); BUN 32 mg/dL (7-18); Bilirubin, Total 0.4 mg/dL (0.2-1.0); CO2 22.9 mmol/L (21.0-32.0); CREATININE 2.01 mg/dL (0.70-1.30); Calcium 9.1 mg/dL (8.5-10.1); Chloride 104 mmol/L (98-107); Estimated GFR 33.51 (mL/min/1.73m2); Glucose 321 mg/dL (70-100); Magnesium 1.3 mg/dL (1.8-2.4); PHOSPHORUS 2.9 mg/dL (2.6-4.7); Potassium 5.1 mmol/L (3.5-5.1); Sodium 136 mmol/L (136-145); Total Protein 7.9 g/dL (6.4-8.2); Uric Acid 7.9 mg/dL (3.5-7.2)
[2018-12-07 09:43] LABS: Vitamin B12 649 pg/mL (193-986)
[2018-12-08 11:00] LABS: Folate >24.0 ng/ml
== END 2018-12-06 02:44 ==
PROVIDERS: Internal Medicine Nephrology; PCP Family Medicine; Visit Provider Family Medicine
DX: Z94.0 Kidney transplant status (principal); Z79.899 Other long term (current) drug therapy; E11.9 Type 2 diabetes mellitus without complications; I10 Essential (primary) hypertension; D53.9 Nutritional anemia, unspecified
CPT/HCPCS: 36415; 80053; 85027; 80197; 82465; 82607; 82746; 83036; 83735; 84100; 84550

== ENCOUNTER 2019-03-13 02:13 | Outpatient (CLI) | payer OTHER, SELFPAY ==
[2019-03-13 12:33] LABS: HCT 36.6 % (40.0-50.0); HGB 11.5 g/dL (13.5-17.5); Mean Corp. HGB Concentration 31.4 g/dL (32.0-36.0); Mean Corpuscular Hemoglobin 30.2 pg (27.0-33.0); Mean Corpuscular Volume 96.1 fL (80-95); Platelet Count 221 x1000/uL (130-400); RBC 3.81 m/cumm (4.50-6.00); White Blood Cell Count 6.77 k/cumm (4.4-10.8)
[2019-03-13 13:00] LABS: Cholesterol 96 mg/dL (50-200)
[2019-03-13 13:05] LABS: ALT 34 U/L (12-78); AST 14 U/L (15-37); Albumin 2.9 g/dL (3.4-5.0); Alkaline Phosphatase 161 U/L (46-116); Anion Gap 11.4 mmol/L (3-11); BUN 35 mg/dL (7-18); Bilirubin, Total 0.4 mg/dL (0.2-1.0); CO2 21.6 mmol/L (21.0-32.0); CREATININE 2.27 mg/dL (0.70-1.30); Calcium 8.8 mg/dL (8.5-10.1); Chloride 108 mmol/L (98-107); Estimated GFR 29.12 (mL/min/1.73m2); Glucose 214 mg/dL (70-100); Magnesium 1.4 mg/dL (1.8-2.4); PHOSPHORUS 3.5 mg/dL (2.6-4.7); Potassium 5.1 mmol/L (3.5-5.1); Sodium 141 mmol/L (136-145); Total Protein 7.8 g/dL (6.4-8.2); Uric Acid 7.7 mg/dL (3.5-7.2)
[2019-03-14 13:33] LABS: Tacrolimus 5.5 ng/ml
== END 2019-03-13 02:33 ==
PROVIDERS: Internal Medicine Nephrology; PCP Family Medicine; Visit Provider Family Medicine
DX: Z94.0 Kidney transplant status (principal); Z79.899 Other long term (current) drug therapy; N17.9 Acute kidney failure, unspecified
CPT/HCPCS: 36415; 80053; 80197; 85027; 82465; 83735; 84100; 84550

== ENCOUNTER 2019-04-10 09:12 | Outpatient (CLI) | payer OTHER, SELFPAY ==
--- NOTE | 2019-04-10 10:45 | DIABASSESS_ITS ---
DESCRIPTION:? Leroy Torres presents for diabetes self management wondering about the Freestyle Gilberto to replace his dexcom.? He is not using Dexcom because he has not been able to do the insertion and then he had difficulty obtaining his supplies.?? Explained Medicare will begin covering the G6 in April and he is willing to give this a try. PLAN:? I will research his eligibility for the G6 and will get back with him. Individual DSME/T __0__ units billed TIME IN: 1410 OUT: 1430 No DM group education series being offered at this time. Medicare will cover the G6 since he does not have an active CGM transmitter. Explained process for ordering with Chronic multi care technician Aidan and caroline Alexis ([employer]iv[employer] is the supplier). Encouraged him to be in touch with the provider office to see if it has been ordered.
== END 2019-04-10 09:32 ==
PROVIDERS: PCP Family Medicine; Visit Provider Dietitian, Registered
DX: E11.9 Type 2 diabetes mellitus without complications (principal); Z71.3 Dietary counseling and surveillance; Z79.4 Long term (current) use of insulin

== ENCOUNTER → 2019-06-11 11:37 | Outpatient (CLI) | payer OTHER, SELFPAY ==
[2019-06-11 12:29] LABS: Bilirubin Negative (Negative); Blood Trace-intact (Negative); Clarity Clear (Clear); Glucose 500 mg/dL (Negative); Ketones Negative (Negative); Leukocyte Esterase Negative (Negative); Nitrite Negative (Negative); Specific Gravity 1.015 (1.005-1.025)
[2019-06-11 12:34] LABS: HGB 12.1 g/dL (13.5-17.5); Mean Corp. HGB Concentration 31.8 g/dL (32.0-36.0); Mean Corpuscular Hemoglobin 30.5 pg (27.0-33.0); Mean Corpuscular Volume 95.7 fL (80-95); Mean Platelet Volume 8.3 fL (8.0-11.0); Platelet Count 210 x1000/uL (130-400); RBC 3.97 m/cumm (4.50-6.00); RBC Distribution Width 13.7 % (11.8-14.1); White Blood Cell Count 6.51 k/cumm (4.4-10.8)
[2019-06-11 12:35] LABS: PROTEIN 85.4 mg/dL
[2019-06-11 12:36] LABS: COMMENT (LAB VIEW ONLY) 66.92 mg/dL; Prot/Crea Ur Ratio 1.27
[2019-06-11 12:40] LABS: Hemoglobin A1C 9.1 % (4.5-6.2)
[2019-06-11 12:51] LABS: Cholesterol 99 mg/dL (50-200)
[2019-06-11 12:53] LABS: ALT 35 U/L (16-63); AST 22 U/L (15-37); Alkaline Phosphatase 203 U/L (46-116); Anion Gap 9.6 mmol/L (3-11); BUN 33 mg/dL (7-18); Bilirubin, Total 0.5 mg/dL (0.2-1.0); CO2 24.4 mmol/L (21.0-32.0); CREATININE 2.47 mg/dL (0.70-1.30); Chloride 105 mmol/L (98-107); Estimated GFR 26.33 (mL/min/1.73m2); Glucose 345 mg/dL (70-100); Sodium 139 mmol/L (136-145)
[2019-06-11 13:03] LABS: Bacteria Rare HPF (Negative); C & S Indicated? No; Casts Negative LPF (Negative); Crystals Negative HPF (Negative); Epithelial Cells Few HPF (Negative); Mucus Negative (Negative); WBC 0-2 HPF (0-5)
[2019-06-11 13:05] LABS: Magnesium 1.5 mg/dL (1.8-2.4); Uric Acid 7.6 mg/dL (3.5-7.2)
[2019-06-12 13:46] LABS: Tacrolimus 7.2 ng/mL (See Note)
== END ==
PROVIDERS: PCP Family Medicine; Visit Provider Internal Medicine Nephrology
DX: E11.9 Type 2 diabetes mellitus without complications (principal); I10 Essential (primary) hypertension; Z94.0 Kidney transplant status; Z79.899 Other long term (current) drug therapy
CPT/HCPCS: 36415; 80053; 85027; 80197; 81003; 81015; 82465; 82565; 83036; 83735; 84100; 84156; 84550

== ENCOUNTER 2019-07-02 00:17 | Outpatient (CLI) | payer OTHER, SELFPAY ==
[2019-07-02 12:59] LABS: HCT 37.2 % (40.0-50.0); HGB 11.4 g/dL (13.5-17.5); Mean Corp. HGB Concentration 30.6 g/dL (32.0-36.0); Mean Corpuscular Hemoglobin 30.2 pg (27.0-33.0); Mean Corpuscular Volume 98.4 fL (80-95); Mean Platelet Volume 8.5 fL (8.0-11.0); Platelet Count 236 x1000/uL (130-400); RBC 3.78 m/cumm (4.50-6.00); RBC Distribution Width 14.2 % (11.8-14.1); White Blood Cell Count 6.81 k/cumm (4.4-10.8)
[2019-07-02 13:11] LABS: Bilirubin Negative (Negative); Blood Trace-intact (Negative); Clarity Clear (Clear); Glucose Negative (Negative); Ketones Negative (Negative); Leukocyte Esterase Negative (Negative); Nitrite Negative (Negative); Specific Gravity 1.015 (1.005-1.025); Urobilinogen 0.2 EU/dL (Up TO 0.2); pH 6.5 (5-8)
[2019-07-02 13:35] LABS: Bacteria Rare HPF (Negative); C & S Indicated? No; Casts Negative LPF (Negative); Crystals Negative HPF (Negative); Epithelial Cells Rare HPF (Negative); Mucus Negative (Negative); WBC 0-2 HPF (0-5)
[2019-07-02 14:38] LABS: Cholesterol 98 mg/dL (<200)
[2019-07-02 14:46] LABS: PROTEIN 51.7 mg/dL
[2019-07-02 14:49] LABS: ALT 17 U/L (16-63); AST 11 U/L (15-37); Albumin 3.1 g/dL (3.4-5.0); Alkaline Phosphatase 143 U/L (46-116); Anion Gap 7.4 mmol/L (3-11); BUN 35 mg/dL (7-18); Bilirubin, Total 0.5 mg/dL (0.2-1.0); CO2 25.6 mmol/L (21.0-32.0); COMMENT (LAB VIEW ONLY) 47.15 mg/dL; CREATININE 2.19 mg/dL (0.70-1.30); Calcium 9.1 mg/dL (8.5-10.1); Chloride 107 mmol/L (98-107); Estimated GFR 30.25 (mL/min/1.73m2); Glucose 96 mg/dL (74-106); Magnesium 1.4 mg/dL (1.8-2.4); PHOSPHORUS 3.3 mg/dL (2.6-4.7); Potassium 5.4 mmol/L (3.5-5.1); Prot/Crea Ur Ratio 1.09; Sodium 140 mmol/L (136-145); Total Protein 7.7 g/dL (6.4-8.2); Uric Acid 7.5 mg/dL (3.5-7.2)
[2019-07-03 14:25] LABS: Tacrolimus 6.3 ng/mL (See Note)
== END 2019-07-02 00:37 ==
PROVIDERS: PCP Family Medicine; Visit Provider Internal Medicine Nephrology
DX: Z94.0 Kidney transplant status (principal); Z79.899 Other long term (current) drug therapy; I10 Essential (primary) hypertension
CPT/HCPCS: 36415; 80053; 85027; 80197; 81003; 81015; 82465; 82565; 83735; 84100; 84156; 84550

== ENCOUNTER 2019-07-09 02:09 | Outpatient (CLI) | payer OTHER, SELFPAY ==
[2019-07-09 13:07] LABS: HCT 36.4 % (40.0-50.0); HGB 11.5 g/dL (13.5-17.5); Mean Corp. HGB Concentration 31.6 g/dL (32.0-36.0); Mean Corpuscular Hemoglobin 30.6 pg (27.0-33.0); Mean Corpuscular Volume 96.8 fL (80-95); Mean Platelet Volume 8.6 fL (8.0-11.0); Platelet Count 210 x1000/uL (130-400); RBC 3.76 m/cumm (4.50-6.00); White Blood Cell Count 7.11 k/cumm (4.4-10.8)
[2019-07-09 13:22] LABS: ALT 18 U/L (16-63); AST 13 U/L (15-37); Albumin 3.1 g/dL (3.4-5.0); Alkaline Phosphatase 147 U/L (46-116); Anion Gap 9.7 mmol/L (3-11); BUN 40 mg/dL (7-18); Bilirubin, Total 0.5 mg/dL (0.2-1.0); CO2 23.3 mmol/L (21.0-32.0); CREATININE 2.37 mg/dL (0.70-1.30); Chloride 107 mmol/L (98-107); Estimated GFR 27.62 (mL/min/1.73m2); Glucose 159 mg/dL (74-106); Magnesium 1.5 mg/dL (1.8-2.4); PHOSPHORUS 3.7 mg/dL (2.6-4.7); Potassium 5.2 mmol/L (3.5-5.1); Sodium 140 mmol/L (136-145); Total Protein 7.8 g/dL (6.4-8.2); Uric Acid 8.2 mg/dL (3.5-7.2)
[2019-07-09 13:38] LABS: Bilirubin Negative (Negative); Blood Trace-lysed (Negative); Clarity Clear (Clear); Glucose Negative (Negative); Ketones Negative (Negative); Leukocyte Esterase Negative (Negative); Nitrite Negative (Negative); Urobilinogen 0.2 EU/dL (Up TO 0.2)
[2019-07-09 13:42] LABS: COMMENT (LAB VIEW ONLY) 43.33 mg/dL; Prot/Crea Ur Ratio 1.06
[2019-07-09 13:57] LABS: Bacteria Rare HPF (Negative); C & S Indicated? No; Casts Negative LPF (Negative); Crystals Negative HPF (Negative); Epithelial Cells Rare HPF (Negative); Mucus Negative (Negative); RBC 0-2 HPF (0-2); WBC 0-2 HPF (0-5)
[2019-07-09 14:22] LABS: Cholesterol 103 mg/dL (<200)
[2019-07-10 12:30] LABS: Tacrolimus 5.2 ng/mL (See Note)
== END 2019-07-09 02:29 ==
PROVIDERS: PCP Family Medicine; Visit Provider Internal Medicine Nephrology
DX: Z94.0 Kidney transplant status (principal); Z79.899 Other long term (current) drug therapy; E11.9 Type 2 diabetes mellitus without complications; I10 Essential (primary) hypertension; Z51.81 Encounter for therapeutic drug level monitoring
CPT/HCPCS: 36415; 80053; 85027; 80197; 81003; 81015; 82465; 82565; 83735; 84100; 84156; 84550

== ENCOUNTER 2019-07-16 01:36 | Outpatient (CLI) | payer OTHER, SELFPAY ==
[2019-07-16 12:53] LABS: HCT 34.8 % (40.0-50.0); HGB 10.8 g/dL (13.5-17.5); Mean Corpuscular Hemoglobin 30.1 pg (27.0-33.0); Mean Corpuscular Volume 96.9 fL (80-95); Mean Platelet Volume 8.8 fL (8.0-11.0); Platelet Count 209 x1000/uL (130-400); RBC 3.59 m/cumm (4.50-6.00); RBC Distribution Width 13.8 % (11.8-14.1); White Blood Cell Count 7.61 k/cumm (4.4-10.8)
[2019-07-16 13:05] LABS: ALT 24 U/L (16-63); AST 14 U/L (15-37); Albumin 2.9 g/dL (3.4-5.0); Alkaline Phosphatase 145 U/L (46-116); Anion Gap 8.1 mmol/L (3-11); BUN 40 mg/dL (7-18); Bilirubin, Total 0.5 mg/dL (0.2-1.0); CO2 22.9 mmol/L (21.0-32.0); CREATININE 2.37 mg/dL (0.70-1.30); Calcium 8.9 mg/dL (8.5-10.1); Chloride 106 mmol/L (98-107); Estimated GFR 27.62 (mL/min/1.73m2); Glucose 250 mg/dL (74-106); Magnesium 1.4 mg/dL (1.8-2.4); PHOSPHORUS 3.7 mg/dL (2.6-4.7); Potassium 5.3 mmol/L (3.5-5.1); Sodium 137 mmol/L (136-145); Total Protein 7.6 g/dL (6.4-8.2); Uric Acid 7.6 mg/dL (3.5-7.2)
[2019-07-16 13:07] LABS: Cholesterol 102 mg/dL (<200)
[2019-07-16 13:09] LABS: Bilirubin Negative (Negative); Blood Trace-lysed (Negative); Clarity Clear (Clear); Glucose 100 mg/dL (Negative); Ketones Negative (Negative); Leukocyte Esterase Negative (Negative); Nitrite Negative (Negative); Specific Gravity 1.015 (1.005-1.025); Urobilinogen 0.2 EU/dL (Up TO 0.2)
[2019-07-16 13:23] LABS: Bacteria Moderate HPF (Negative); C & S Indicated? Yes; Casts Negative LPF (Negative); Crystals Negative HPF (Negative); Epithelial Cells Rare HPF (Negative); Mucus Trace (Negative)
[2019-07-16 13:53] LABS: PROTEIN 70.9 mg/dL
[2019-07-16 13:57] LABS: COMMENT (LAB VIEW ONLY) 58.85 mg/dL
[2019-07-17 13:23] LABS: Tacrolimus 6.5 ng/mL (See Note)
== END 2019-07-16 01:56 ==
PROVIDERS: PCP Family Medicine; Visit Provider Internal Medicine Nephrology
DX: Z94.0 Kidney transplant status (principal); Z79.899 Other long term (current) drug therapy; N18.3 Chronic kidney disease, stage 3 (moderate)
CPT/HCPCS: 36415; 80053; 80197; 85027; 87077; 81003; 81015; 82465; 82565; 83735; 84100; 84156; 84550; 87086; 87186

== ENCOUNTER → 2019-07-23 01:44 | Outpatient (CLI) | payer OTHER, SELFPAY ==
[2019-07-23 13:21] LABS: HCT 35.2 % (40.0-50.0); HGB 11.1 g/dL (13.5-17.5); Mean Corp. HGB Concentration 31.5 g/dL (32.0-36.0); Mean Corpuscular Hemoglobin 30.7 pg (27.0-33.0); Mean Corpuscular Volume 97.5 fL (80-95); Mean Platelet Volume 8.8 fL (8.0-11.0); Platelet Count 273 x1000/uL (130-400); RBC 3.61 m/cumm (4.50-6.00); RBC Distribution Width 13.7 % (11.8-14.1); White Blood Cell Count 7.66 k/cumm (4.4-10.8)
[2019-07-23 13:22] LABS: PROTEIN 53.4 mg/dL
[2019-07-23 13:23] LABS: COMMENT (LAB VIEW ONLY) 42.32 mg/dL; Prot/Crea Ur Ratio 1.26
[2019-07-23 13:26] LABS: Cholesterol 94 mg/dL (<200)
[2019-07-23 13:27] LABS: ALT 29 U/L (16-63); AST 23 U/L (15-37); Albumin 2.9 g/dL (3.4-5.0); Alkaline Phosphatase 174 U/L (46-116); Anion Gap 11.3 mmol/L (3-11); BUN 39 mg/dL (7-18); Bilirubin, Total 0.4 mg/dL (0.2-1.0); CO2 21.7 mmol/L (21.0-32.0); Calcium 8.9 mg/dL (8.5-10.1); Chloride 107 mmol/L (98-107); Estimated GFR 28.59 (mL/min/1.73m2); Glucose 213 mg/dL (74-106); Magnesium 1.6 mg/dL (1.8-2.4); PHOSPHORUS 3.5 mg/dL (2.6-4.7); Potassium 5.4 mmol/L (3.5-5.1); Sodium 140 mmol/L (136-145); Total Protein 7.8 g/dL (6.4-8.2); Uric Acid 8.5 mg/dL (3.5-7.2)
[2019-07-23 13:35] LABS: Bilirubin Negative (Negative); Blood Negative (Negative); Clarity Clear (Clear); Glucose 100 mg/dL (Negative); Ketones Negative (Negative); Leukocyte Esterase Negative (Negative); Nitrite Negative (Negative); Specific Gravity 1.015 (1.005-1.025); Urobilinogen 0.2 EU/dL (Up TO 0.2)
[2019-07-23 13:45] LABS: Bacteria Moderate HPF (Negative); C & S Indicated? Yes; Casts Negative LPF (Negative); Crystals Negative HPF (Negative); Epithelial Cells Rare HPF (Negative); Mucus Negative (Negative); WBC 0-2 HPF (0-5)
[2019-07-24 11:06] LABS: Tacrolimus 4.6 ng/mL (See Note)
== END ==
PROVIDERS: PCP Family Medicine; Visit Provider Internal Medicine Nephrology
DX: N18.6 End stage renal disease (principal); Z94.0 Kidney transplant status; Z79.899 Other long term (current) drug therapy
CPT/HCPCS: 36415; 80053; 85027; 87077; 80197; 81003; 81015; 82465; 82565; 83735; 84100; 84156; 84550; 87086; 87186

== ENCOUNTER → 2019-07-30 03:05 | Outpatient (CLI) | payer OTHER, SELFPAY ==
[2019-07-30 12:56] LABS: HCT 36.2 % (40.0-50.0); HGB 11.3 g/dL (13.5-17.5); Mean Corp. HGB Concentration 31.2 g/dL (32.0-36.0); Mean Corpuscular Hemoglobin 30.5 pg (27.0-33.0); Mean Corpuscular Volume 97.8 fL (80-95); Mean Platelet Volume 8.5 fL (8.0-11.0); Platelet Count 258 x1000/uL (130-400); RBC Distribution Width 13.7 % (11.8-14.1)
[2019-07-30 13:11] LABS: Bilirubin Negative (Negative); Blood Trace-intact (Negative); Clarity Clear (Clear); Glucose 100 mg/dL (Negative); Ketones Negative (Negative); Leukocyte Esterase Negative (Negative); Nitrite Negative (Negative); Specific Gravity 1.015 (1.005-1.025); Urobilinogen 0.2 EU/dL (Up TO 0.2)
[2019-07-30 13:15] LABS: Cholesterol 105 mg/dL (<200)
[2019-07-30 13:39] LABS: Epithelial Cells Negative HPF (Negative); WBC 0-2 HPF (0-5)
[2019-07-30 13:40] LABS: Bacteria Few HPF (Negative); Casts Negative LPF (Negative); Crystals Negative HPF (Negative); Mucus Negative (Negative); Other Cells Rare Renal (Negative)
[2019-07-30 13:41] LABS: C & S Indicated? No
[2019-07-30 14:04] LABS: PROTEIN 98.2 mg/dL
[2019-07-30 14:05] LABS: COMMENT (LAB VIEW ONLY) 59.21 mg/dL; Prot/Crea Ur Ratio 1.65
[2019-07-30 14:47] LABS: ALT 25 U/L (16-63); AST 18 U/L (15-37); Albumin 2.9 g/dL (3.4-5.0); Alkaline Phosphatase 165 U/L (46-116); Anion Gap 11.5 mmol/L (3-11); BUN 33 mg/dL (7-18); Bilirubin, Total 0.4 mg/dL (0.2-1.0); CO2 21.5 mmol/L (21.0-32.0); CREATININE 2.22 mg/dL (0.70-1.30); Calcium 8.8 mg/dL (8.5-10.1); Chloride 105 mmol/L (98-107); Estimated GFR 29.78 (mL/min/1.73m2); Glucose 310 mg/dL (74-106); Magnesium 1.4 mg/dL (1.8-2.4); Sodium 138 mmol/L (136-145); Total Protein 7.7 g/dL (6.4-8.2)
[2019-07-30 15:04] LABS: Potassium 6.2 mmol/L (3.5-5.1)
[2019-07-31 13:37] LABS: Tacrolimus 4.1 ng/mL (See Note)
[2019-07-31 15:08] LABS: PHOSPHORUS 4.4 mg/dL (2.6-4.7)
== END ==
PROVIDERS: PCP Family Medicine; Visit Provider Internal Medicine Nephrology
DX: N18.6 End stage renal disease (principal); Z94.0 Kidney transplant status; Z79.899 Other long term (current) drug therapy; M79.2 Neuralgia and neuritis, unspecified; G25.0 Essential tremor; E11.42 Type 2 diabetes mellitus with diabetic polyneuropathy
CPT/HCPCS: 36415; 80053; 85027; 80197; 81003; 81015; 82465; 82565; 83735; 84100; 84156; 84550

== ENCOUNTER 2019-08-03 01:41 | Inpatient (IN) | payer OTHER, SELFPAY ==
[2019-08-03] VITALS (32 sets, daily range): BP systolic 113–178; BP diastolic 50–79; PULSE 46–87; RESP 7–22; TEMP 36.6–37.3; O2SAT 87–99
--- NOTE | 2019-08-03 01:59 | W.ED.GENAD ---
Discharge Plan Disposition Patient Disposition: [facility] INPATIENT Condition: Stable Discharge Details Chief Complaint: RespSymp Clinical Impression: Chronic kidney disease, Acute hyperkalemia, Acute kidney injury, Mobitz type 1 second degree AV block, Pneumonia, Immunosuppressed status Primary Care Provider: Violetta Sanford ED Provider: Maciej Teran Home Meds and New Rx's Prescriptions: No Action folic acid 1 mg tablet 1 mg PO DAILY RF: 0 Humalog KwikPen Insulin 100 unit/mL insulin pen See Rx Instructions SC BID RF: 0 glucagon HCl 1 mg recon soln 1 mg IM ONCE PRNRF: 0 propranolol [Inderal LA] 160 MG capsule,extended release 24 hr 160 mg PO TID RF: 0 aspirin [Aspirin Low Dose] 81 MG tablet,delayed release (DR/EC) 81 mg PO DAILY RF: 0 omeprazole [Prilosec] 40 MG capsule,delayed release(DR/EC) 40 mg PO DAILY RF: 0 montelukast 10 MG tablet 10 mg PO DAILY RF: 0 multivitamin [Daily Multi-Vitamin] 1 EACH tablet 1 ea PO DAILY RF: 0 cholecalciferol (vitamin D3) [Vitamin D3] 2,000 UNIT tablet 2,000 unit PO DAILY RF: 0 fluticasone propionate 16 GM spray,suspension 2 spry NS DAILY PRNRF: 0 albuterol sulfate [Ventolin HFA] 90 mcg/actuation Hfa Aerosol Inhaler 90 mcg Inhalation 4-6XD RF: 0 mycophenolate mofetil [CellCept] 250 mg Capsule 500 mg PO BID RF: 0 ipratropium-albuterol 0.5 mg-3 mg(2.5 mg base)/3 mL Solution For Nebulization 3 ml UPD Q6H Qty: 0 RF: 0 gabapentin 300 mg Capsule 600 mg PO TID Qty: 0 RF: 0 tacrolimus 0.5 mg Capsule 1 mg PO DAILY Qty: 0 RF: 0 Novolog Flexpen U-100 Insulin 100 unit/mL Insulin Pen 0 units subcut 0800,1200,1700 Qty: 0 RF: 0 atorvastatin [Lipitor] 20 MG tablet 1 tab PO DAILY RF: 0 primidone 50 mg Tablet 50 mg PO BID RF: 0 Victoza 2-Nigel 0.6 mg/0.1 mL (18 mg/3 mL) Pen Injector 1.8 mg SUBCUT QDAY RF: 0 Stiolto Respimat 2.5-2.5 mcg/actuation Mist 2 puff inhalation DAILY RF: 0 Levemir FlexTouch U-100 Insuln 100 unit/mL (3 mL) insulin pen 55 units subcut HS RF: 0 Medical Decision Making This is a 64-year-old male with a past medical history of renal disease and subsequent renal transplant on CellCept and Prograf, COPD, coronary artery disease, diabetes mellitus, hypertension, high cholesterol, bilateral below the knee amputations. He presents today for evaluation of cough and difficulty swallowing. Patient states that over the last 3 days he has had a mild productive cough with productive sputum that is occasionally blood-tinged, no devin hemoptysis. Over the last few days he is also had chills, and had a home reported fever measured at 100.7. He did take an NSAID just prior to arrival. He is not currently on antibiotics. Also of note the patient states that for the last 2 to 3 weeks he has had mild difficulty swallowing and felt like there is something stuck or swelling in his throat. He does admit to notable sputum with congestion and drainage, and feels that this may be a component of it. Physical exam demonstrates mild crackles and wheezes in the lungs. We will give a breathing treatment here. He does demonstrate mild macroglossia, but no evidence of angioedema. No signs of airway compromise. Subjective tenderness is present just proximal to the superior component of the manubrium, however there does not appear to be any evidence of Ludewig's angina, swelling, or mass. At baseline the patient does have a notably large neck girdle, which certainly obvious gaits exam to a degree. We will get a CT scan of his neck to rule out acute process internally as he is certainly at risk for growth, tumor, or infection with his immunocompromisation. Will test for flu, get a chest x-ray. With the patient's immunocompromise state, in conjunction with his fever and cough, I am concerned for infection. I do feel that the patient would likely benefit from admission. 4:05 AM Laboratory work-up has returned, lactate elevated at 2, white count elevated at 11.5. Platelets stable. Minimal left shift. Procalcitonin is 0.1. Creatinine is 2.66 which appears to be a mild elevation compared to baseline. BUN is 42, concern for mild prerenal dehydration. Potassium is elevated at 5.8. With peaking of T waves, elevated potassium this is slightly concerning additionally there appears to be winky block dysrhythmia which is new compared to prior EKGs.. However review of prior potassiums reflect that the patient is normally in the high fours to low fives for his potassium level however 5.8 is slightly on the higher side. We will give 3 duo nebs, 5 units of IV insulin, calcium gluconate. My concern is more so for the peaking of the T waves in the EKG . We will continue to monitor closely. Chest x-ray shows evidence of left-sided retrocardiac pneumonia. Which correlates well with his symptomatology of fever chills and cough. The patient's CT of the neck shows no acute process in the lower neck. There is narrowing of the nasopharyngeal airway due to prominent soft palate and posterior nasopharyngeal soft tissue swelling. I did contact the radiologist, they state that there is no evidence of discrete abscess, it is difficult to tell if there is an acute or chronic component to this. I went back and reassessed the patient multiple times, and patient very clearly and distinctly iterates that his symptoms are low, just above the area of the manubrium and not in the mouth or tongue area. He denies any pain in that area. He continues to show no signs of airway compromise. I suspect that the patient may just have this slight enlargement secondary to chronic baseline largeness in this area as well as mild irritation from postnasal drip. He shows no signs of angioedema at this time, and again patient reiterates multiple times that the sensation is in the lower neck and is been present for the last 2 to 3 weeks. At this time there is clinically no meter indication for acute airway management as he shows no signs of airway compromise whatsoever. In regards to the patient's pneumonia we will give vancomycin, aztreonam, and doxycycline. Review of his last [facility] visit with Dr. Wing Monroe does show that they did increase his losartan at that time, which may be contributing to his slightly worsening ANSELMO and potassium. We have sent out a page multiple times to [facility] and Dr. cosby, but unfortunately per [facility] call center they have left messages but he has not been returning their call at this point. I have contacted the hospitalist Dr. Quiroz and discussed the case with him. We will admit the patient for treatment of pneumonia, hyperkalemia, mild dehydration. He agrees with the assessment and plan. I have extensively reviewed the treatment plan with the patient. I have addressed all patient concerns at this time. I have also discussed the plan with the admitting physician and they agree with the current assessment and plan and have agreed to assume responsibility for the patient. All parties demonstrate verbal understanding and agreement with our assessment and plan at this time. EKG 3: 54 Rate 67, QTc 443, QRS 119, rhythm concerning for a second degree Mobitz type I winkybach, no evidence of STEMI. Peaking of T waves in V3, V4, V5. Comparison from prior EKG on 11/15/2018 demonstrates that these packings appear to be more new. Inverted T wave in lead III, consistent with prior EKG. the Wenckebach dysrhythmia appears new compared to prior EKGs. FINDINGS: Sinuses: Mucoperiosteal thickening/partial opacification of all but the left sphenoid sinus. Multiple opacified ethmoid air cells. Prior sinonasal surgery. Nasopharynx: Symmetric prominence of nasopharyngeal soft tissues. Narrowing of inferior nasopharyngeal airway in part due to prominence of soft palate. Oropharynx: Unremarkable. No significant tonsillar enlargement. Hypopharynx: Unremarkable Larynx: Unremarkable. Normal epiglottis. Retropharyngeal space: Unremarkable. Submandibular/Parotid glands: Fatty infiltration of the parotid glands. Glands are normal in size. Thyroid: Normal. No enlarged or calcified nodules. Lymph nodes: Unremarkable. No lymphadenopathy. Trachea: Visualized trachea is unremarkable. Lungs: Unremarkable as visualized. Mastoid air cells: Normal mastoid air cells. Bones/joints: Unremarkable. No acute fracture. Soft tissues: Unremarkable. No significant soft tissue swelling. IMPRESSION: 1. Narrowing of nasal pharyngeal airway due to prominent soft palate and posterior nasopharyngeal soft tissues. 2. Pansinusitis. 3. Fatty infiltration of parotid glands. Thank you for allowing us to participate in the care of your patient. Dictated and Authenticated by: Torsten Chaidez DO 08/03/2019 3:34 AM Eastern Time ([place] & [place]) FINDINGS: Lungs: Left lower lobe parenchymal consolidation. Pleural space: Unremarkable. No pleural effusion. No pneumothorax. Heart/Mediastinum: Heart top normal in size. Bones/joints: Unremarkable. IMPRESSION: Left lower lobe pneumonia. Thank you for allowing us to participate in the care of your patient. Dictated and Authenticated by: Torsten Chaidez HPI General Date/Time Provider Initiated Documentation: 08/03/19 01:42. HPI Narrative: This is a 64-year-old male with a past medical history of renal disease and subsequent renal transplant on CellCept and Prograf, COPD, coronary artery disease, diabetes mellitus, hypertension, high cholesterol, bilateral below the knee amputations. He presents today for evaluation of cough and difficulty swallowing. Patient states that over the last 3 days he has had a mild productive cough with productive sputum that is occasionally blood-tinged, no devin hemoptysis. Over the last few days he is also had chills, and had a home reported fever measured at 100.7. He did take an NSAID just prior to arrival. He is not currently on antibiotics. Also of note the patient states that for the last 2 to 3 weeks he has had mild difficulty swallowing and felt like there is something stuck or swelling in his throat. He does admit to notable sputum with congestion and drainage, and feels that this may be a component of it. He denies any nausea vomiting or diarrhea. He denies any headache or neck pain. He has no other complaints at this time. No other modifying factors. Related Data Home Medications Medication Instructions Recorded Confirmed aspirin [Aspirin Low Dose] 81 mg PO DAILY 10/31/12 08/03/19 montelukast 10 mg PO DAILY tab-cap 10/31/12 08/03/19 omeprazole [Prilosec] 40 mg PO DAILY 10/31/12 08/03/19 propranolol [Inderal LA] 160 mg PO TID 10/31/12 08/03/19 multivitamin [Daily Multi-Vitamin] 1 ea PO DAILY 05/10/13 08/03/19 cholecalciferol (vitamin D3) 2,000 unit PO DAILY 01/16/16 08/03/19 [Vitamin D3] fluticasone propionate 2 spry NS DAILY PRN 01/16/16 08/03/19 atorvastatin [Lipitor] 1 tab PO DAILY 02/01/17 08/03/19 albuterol sulfate [Ventolin HFA] 90 mcg INHALATION 4-6XD 05/04/18 08/03/19 folic acid 1 mg tablet 1 mg PO DAILY 06/12/18 08/03/19 glucagon HCl 1 mg solution for 1 mg IM ONCE PRN 06/12/18 08/03/19 injection insulin lispro 100 unit/mL See Rx Instructions SC BID 06/12/18 11/12/18 subcutaneous pen mycophenolate mofetil [CellCept] 500 mg PO BID 11/12/18 08/03/19 gabapentin 600 mg PO TID #0 cap 11/15/18 08/03/19 insulin aspart U-100 [Novolog 0 units SUBCUT 0800,1200,1700 #0 ml 11/15/18 08/03/19 Flexpen U-100 Insulin] ipratropium-albuterol 3 ml UPD Q6H #0 ml 11/15/18 08/03/19 tacrolimus 1 mg PO DAILY #0 cap 11/15/18 08/03/19 insulin detemir U-100 [Levemir 55 units SUBCUT HS 08/03/19 08/03/19 FlexTouch U-100 Insuln] liraglutide [Victoza 2-Nigel] 1.8 mg SUBCUT QDAY 08/03/19 08/03/19 primidone 50 mg PO BID 08/03/19 08/03/19 tiotropium-olodaterol [Stiolto 2 puff INHALATION DAILY 08/03/19 08/03/19 Respimat] Previous Rx's Medication Instructions Recorded gabapentin 600 mg PO TID #0 cap 11/15/18 insulin aspart U-100 [Novolog 0 units SUBCUT 0800,1200,1700 #0 ml 11/15/18 Flexpen U-100 Insulin] ipratropium-albuterol 3 ml UPD Q6H #0 ml 11/15/18 tacrolimus 1 mg PO DAILY #0 cap 11/15/18 Allergies Allergy/AdvReac Type Severity Reaction Status Date / Time levofloxacin Allergy Mild Unverified 08/03/19 01:53 sulfamethoxazole Allergy Mild Unverified 08/03/19 01:53 [From Bactrim] trimethoprim [From Bactrim] Allergy Mild Unverified 08/03/19 01:53 clindamycin Allergy Skin Rash Verified 08/03/19 01:53 ibuprofen Allergy Verified 08/03/19 01:53 Penicillins Allergy SWELLING Verified 08/03/19 01:53 tree nut Allergy Verified 08/03/19 01:53 lisinopril AdvReac KIDNEY Verified 08/03/19 01:53 SHUT DOWN yaneth inhibitors Allergy Mild Skin Rash Uncoded 08/03/19 01:53 CATS & BIRDS AdvReac Intermediate WHEEZING Uncoded 08/03/19 01:53 General Stated Complaint: RespSymp RADHA: 3 Review of Systems All systems reviewed & are unremarkable except as noted in HPI and below PFSH Social History Smoking/Tobacco Use Status: Former Tobacco Use Alcohol Intake: never Drug use: Never Do you feel safe at home: Yes Do you feel safe in your relationship?: Yes Additional Social history: pt interacts well with family at bedside Exam Narrative Exam Narrative: 1.Const: Well-nourished, Well-developed, appearing stated age 2.Eyes: PERRL, no conjunctival injection, and symmetrical lids. 3.ENT: Atraumatic external nose and ears. Moist MM. Tongue does not appear overly enlarged, or edematous. No evidence of significant angioedema. He does certainly demonstrate mild macroglossia though. Neck: Symmetric, trachea midline, No thyromegaly. Subjective tenderness over the area just proximal to the superior component of the manubrium. No evidence of Owen's angina, or significant throat or neck swelling. No signs of airway compromise whatsoever. Patient demonstrates good movement of cervical neck. There is no nuchal rigidity, no nuchal tenderness. Patient is able to flex the neck without any difficulty or significant pain. Negative Kernig's and Brudzinski sign. 4.CVS: +S1/S2, No murmurs or gallops. Peripheral pulses 2+ and equal in all extremities. Brisk capillary refill in all extremities. 5.RESP: Unlabored respiratory effort. Reduced breath sounds throughout, minimal wheezes, minimal crackles. 6.GI: Soft, Nontender/Nondistended, No hepatosplenomegaly. No guarding or rebound. 7.MSK: Normocephalic/Atraumatic, bilateral lower extremity amputation, otherwise extremities w/o deformity or ttp No cyanosis or clubbing, Normal movement of all extremities 8.Skin: Warm, Dry. No rashes or lesions. 9.Neuro: manager heart failure II-XII grossly intact. Sensation grossly intact, no focal neurologic deficits. 10.Psych: (AAO) x3. Appropriate mood and affect Course Vital Signs Vital signs: Vital Signs Temperature 36.9 C 08/03/19 01:46 Pulse 87 08/03/19 01:46 Respiratory Rate 18 08/03/19 01:46 Blood Pressure 124/69 08/03/19 01:46 Pulse Oximetry 95 08/03/19 01:46 Temperature 36.9 C 08/03/19 01:46 Temperature Source Oral 08/03/19 01:46 Pulse 87 08/03/19 01:46 Respiratory Rate 18 08/03/19 01:46 Blood Pressure 124/69 08/03/19 01:46 Pulse Oximetry 95 08/03/19 01:46 Pain Level 3 08/03/19 01:46 Lab/Test Results Lab/Test Results: 08/03/19 01:54 Blood Blood Culture - Pending 08/03/19 01:54 Blood Blood Culture - Pending
[2019-08-03] MEDS: Albuterol/Ipratropium 3 ML UPD VIAL UPD ×5 (02:16→23:46)
[2019-08-03 02:28] LABS: Abs Immature Grans 0.01 k/cumm (0.0-0.09); Absolute Basophil Count 0.06 k/cumm (0.0-0.2); Absolute Lymphocyte Count 2.89 k/cumm (1.2-3.4); Absolute Monocyte Count 1.13 k/cumm (0.11-0.7); Basophils % 0.5; Eosinophils % 3.6; HCT 34.5 % (40.0-50.0); HGB 10.6 g/dL (13.5-17.5); Immature Grans % 0.1 %; Lymphocytes % 25.1; Mean Corp. HGB Concentration 30.7 g/dL (32.0-36.0); Mean Corpuscular Hemoglobin 30.5 pg (27.0-33.0); Mean Corpuscular Volume 99.4 fL (80-95); Mean Platelet Volume 8.4 fL (8.0-11.0); Monocytes % 9.8; Neutrophils % 60.9; Platelet Count 229 x1000/uL (130-400); RBC 3.47 m/cumm (4.50-6.00); White Blood Cell Count 11.52 k/cumm (4.4-10.8)
[2019-08-03 02:29] LABS: Absolute Eosinophil Count 0.41 k/cumm (0.0-0.7); Absolute Neutrophil Count 7.02 k/cumm (1.2-6.7)
[2019-08-03 02:34] LABS: BE (Venous) -3.7 mmol/L (-3-3); HCO3 (Venous) 23 mmol/L (22-28); O2 Sat (Venous) 79 % (70-80); TCO2 (Venous) 22 mmol/L (22-29); pCO2 (Venous) 51 mm/Hg (34-47); pH (Venous) 7.27 (7.35-7.45); pO2 (Venous) 47 mm/Hg (28-44)
[2019-08-03 02:50] LABS: ALT 23 U/L (16-63); AST 16 U/L (15-37); Albumin 2.9 g/dL (3.4-5.0); Alkaline Phosphatase 159 U/L (46-116); Anion Gap 7.5 mmol/L (3-11); BUN 42 mg/dL (7-18); Bilirubin, Total 0.5 mg/dL (0.2-1.0); CO2 26.5 mmol/L (21.0-32.0); CREATININE 2.66 mg/dL (0.70-1.30); Calcium 8.5 mg/dL (8.5-10.1); Chloride 106 mmol/L (98-107); Estimated GFR 24.17 (mL/min/1.73m2); Glucose 248 mg/dL (74-106); Potassium 5.8 mmol/L (3.5-5.1); Sodium 140 mmol/L (136-145); Total Protein 7.2 g/dL (6.4-8.2)
[2019-08-03 02:58] LABS: TSH (W/Ref FT4) 1.41 uIU/mL (0.36-3.74)
[2019-08-03 03:06] LABS: INR 1.1 (0.9-1.1); PTT Activated 28.7 sec (21.0-31.4); Prothrombin Time 11.3 sec (9.3-11.0)
[2019-08-03 03:08] LABS: Procalcitonin 0.1 ng/mL
--- NOTE | 2019-08-03 03:10 | DI.RAD_ITS ---
EXAM: XR CHEST 2V PA LATERAL CLINICAL HISTORY: cough, prod sputum, immunocompromised, r/o pneumon TECHNIQUE: COMPARISON: XR PORTABLE CHEST AP from 11/12/2018 FINDINGS: The heart is at the upper limits of normal in size. There are areas of apparent pulmonary consolidat ion involving the left lung base posteriorly. Prominence of perihilar streaky markings also noted bi laterally. IMPRESSION: Left lower lobe pneumonia. Possible diffuse or multi focal bronchopneumonia as well. Appropriate fo llow-up films requested.
--- NOTE | 2019-08-03 03:20 | DI.CT_ITS ---
EXAM: CT NECK WO CLINICAL HISTORY: diff swalling, throat swelling, immunocompromised TECHNIQUE: CT examination of the cervical region was performed without contrast administration. Janice ent reportedly has impaired renal function. COMPARISON: No exams were available for comparison FINDINGS: The lung apices are clear. Tracheolaryngeal structures appear intact. Narrowing of nasal pharyngeal airway noted, prominence of parapharyngeal soft tissues, no gross tonsillar abscess identified. No significant cervical adenopathy. Fatty infiltration of the parotid glands noted, this is a nonspecif ic finding. There is marked mucoperiosteal thickening of maxillary ethmoid, sphenoid and frontal sinuses consiste nt with chronic sinusitis. No gross sinus expansion noted to suggest mucocele. Orbital structures a ppear intact. IMPRESSION: Moderate narrowing of nasopharyngeal airway. No evidence of epiglottitis or other laryngeal abnormal ity. Chronic pansinusitis.
--- NOTE | 2019-08-03 03:34 | DI.VRAD_ITS ---
Addendum created by Torsten Chaidez DO on 08/03/2019 3:44:31 AM EST Case discussed with Dr. Teran at approximately 3:40 a.m. on August 03. Initial report created on 08/03/2019 3:34:35 AM EST PROCEDURE INFORMATION: Exam: CT Neck Without Contrast Exam date and time: 08/03/2019 3:13 AM Age: 64 years old Clinical indication: Mass, lump, or swelling in neck; Additional info: Difficulty swallowing, throat swelling, immunocompromised TECHNIQUE: Imaging protocol: Computed tomography images of the neck without contrast. Radiation optimization: All CT scans at this facility use at least one of these dose optimization techniques: automated exposure control; mA and/or kV adjustment per patient size (includes targeted exams where dose is matched to clinical indication); or iterative reconstruction. COMPARISON: No relevant prior studies available. FINDINGS: Sinuses: Mucoperiosteal thickening/partial opacification of all but the left sphenoid sinus. Multiple opacified ethmoid air cells. Prior sinonasal surgery. Nasopharynx: Symmetric prominence of nasopharyngeal soft tissues. Narrowing of inferior nasopharyngeal airway in part due to prominence of soft palate. Oropharynx: Unremarkable. No significant tonsillar enlargement. Hypopharynx: Unremarkable Larynx: Unremarkable. Normal epiglottis. Retropharyngeal space: Unremarkable. Submandibular/Parotid glands: Fatty infiltration of the parotid glands. Glands are normal in size. Thyroid: Normal. No enlarged or calcified nodules. Lymph nodes: Unremarkable. No lymphadenopathy. Trachea: Visualized trachea is unremarkable. Lungs: Unremarkable as visualized. Mastoid air cells: Normal mastoid air cells. Bones/joints: Unremarkable. No acute fracture. Soft tissues: Unremarkable. No significant soft tissue swelling. IMPRESSION: 1. Narrowing of nasal pharyngeal airway due to prominent soft palate and posterior nasopharyngeal soft tissues. 2. Pansinusitis. 3. Fatty infiltration of parotid glands. Dictated and Authenticated by: Torsten Chaidez MD. Ordering:RANDY Wing MD
--- NOTE | 2019-08-03 03:37 | DI.VRAD_ITS ---
PROCEDURE INFORMATION: Exam: XR Chest, 2 Views Exam date and time: 08/03/2019 1:56 AM Age: 64 years old Clinical indication: Shortness of breath and other: Difficulty swallowing; Additional info: Difficulty swallowing, throat swelling, immunocompromised TECHNIQUE: Imaging protocol: XR of the chest Views: 2 views. COMPARISON: CR XR PORTABLE CHEST AP 11/12/2018 11:06 PM FINDINGS: Lungs: Left lower lobe parenchymal consolidation. Pleural space: Unremarkable. No pleural effusion. No pneumothorax. Heart/Mediastinum: Heart top normal in size. Bones/joints: Unremarkable. IMPRESSION: Left lower lobe pneumonia. Dictated and Authenticated by: Torsten Chaidez MD. Ordering:RANDY Wing MD
[2019-08-03] MEDS: Insulin REGULAR-Human 100 UNITS/ML UNIT IV (04:02)
[2019-08-03] MEDS: Lidocaine 2% Viscous 15 ML CUP PO (04:07)
[2019-08-03] MEDS: Albuterol 2.5 MG/3 ML INH SOLN VIAL 5 MG UPD (04:10)
[2019-08-03] MEDS: Normal Saline 500 ML IV (04:14)
[2019-08-03] MEDS: AZTREONAM 2,000 MG in Normal Saline 100 ML 200 MG IVPB (04:54)
--- NOTE | 2019-08-03 05:01 | W.PM.HP.N ---
Date of service: 08/03/19 Time of Service: 05:01 Assessment and Plan Assessment and plan (1) Left lower lobe pneumonia: Status: Acute Assessment and plan: Continue broad-spectrum antibiotics including vancomycin aztreonam and doxycycline pending the results of his blood cultures. Will check a pro calcitonin level and repeat his blood lactate level along with his BMP. Continue aerosolized bronchodilators. And attempt to get a sputum culture Qualifiers: Pneumonia type: due to unspecified organism Qualified Code(s): J18.9 - Pneumonia, unspecified organism (2) Hyperkalemia: Status: Resolved Assessment and plan: Patient was acutely treated appropriately with insulin and calcium chloride given his hyperacute T wave changes and new onset Wenckebach block. I repeat his BMP with his morning labs and if his potassium remains above 5.5 I will repeat his Kayexalate. Because of the Wenckebach block I am going to withhold his Inderal which she has been on for his essential tremors but it is also been controlling his A. fib rate (3) Acute kidney injury superimposed on chronic kidney disease: Status: Acute Assessment and plan: We will withhold his Lasix for now and give him gentle IV fluid hydration monitor his urine output and BMP. continue CellCept and Prograf. 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 Repeat his EKG once his bradycardia and hyperkalemia have resolved. (5) Uncontrolled insulin dependent diabetes mellitus: Status: Acute Assessment and plan: Monitor blood sugars before meals and at bedtime and adjust his sliding scale appropriately as well as his carbohydrate coverage. May need further adjustments of his Lantus for now and will withhold his Victoza Upon arrival to the medical/surgical floor his glucose was down in the 40s. He was given an amp of D50 and his blood sugar is now on its way back up. And I cut his Levemir by a third down to 40 units nightly and use insulin sensitive sliding scale. I think his glucose probably drop because he was given 5 units of NovoLog for his hyperkalemia without being given any supplemental dextrose. (6) Hypertension: Status: Chronic Assessment and plan: In light of his hyperkalemia I am going to withhold his losartan for now. If his hypertension becomes an issue he can be treated with a pure vasodilator such as hydralazine Qualifiers: Hypertension type: essential hypertension Qualified Code(s): I10 - Essential (primary) hypertension History of Present Illness History of Present Illness Chief Complaint: dyspnea, cough, dysphagia Narrative: 64 yr old male w/ PMH of poorly controlled type II DM on inuslin, CKD s/p renal transplant (on CellCept and ProGraf), s/p bilateral BKA, HTN, HLD, GERD who presented to the ER w/ complaints of dyspnea, cough and dysphagia (sensation of globus). For past 3 days he has had cough that is productive of purulent sputum and some tinge of hemoptysis. He has also had low grade fever of 100.7 and chills. For past 2 to 3 weeks he has had sensation of something being stuck in his throat. Patient has not been on any antibiotics recently. Patient also admits to sinus congestion and drainage. Upon admission he was afebrile at 36.9. BP was stable at 124/69, pulse was 87 but at times is gotten as low as 46. He is demonstrated Wenke Bach second-degree AV block confirmed on his EKG. Laboratory studies showed elevated potassium of 5.8 and elevated BUN and creatinine 42 and 2.66 and a glucose of 248 with a blood lactate of 2.0. CBC demonstrated elevated white count of 11,520 and a stable chronic anemia with a hemoglobin 10.6 g. Chest [address] scan of his neck without contrast were performed. CT of the soft tissues of his neck showed narrowing of his nasopharyngeal airways due to prominent soft palate and posterior nasopharyngeal soft tissues. He has a pansinusitis and fatty infiltration of his parotid glands. But otherwise the oropharynx and hypopharynx and larynx were unremarkable. Chest x-ray was consistent with a left lower lobe pneumonia. Treatment the emergency department included an IV fluid bolus of 500 cc of saline and was given calcium gluconate and 5 units of insulin along with Kayexalate 15 g orally. To treat his hyperkalemia. He was started on broad-spectrum antibiotics with vancomycin and aztreonam and doxycycline for community-acquired pneumonia in otherwise immunocompromised patient because of chronic immunosuppressants for his renal transplant. Dr. Teran, emergency room attending, check the patient's [facility] records and found that Dr. Wing Monroe increase the patient's losartan at his most recent visit. Patient is now being admitted for treatment of severe pneumonia along with acute kidney injury and dehydration as well as cardiac arrhythmias probably precipitated by his chronic use of Inderal for his tremors and his acute hyperkalemia. [facility] Social History Smoking/Tobacco Use Status: Former Tobacco Use Alcohol Intake: never Drug use: Never Do you feel safe at home: Yes Do you feel safe in your relationship?: Yes Additional Social history: pt interacts well with family at bedside Meds Home Medications and Allergies Home Medications Medication Instructions Recorded Confirmed Type aspirin [Aspirin Low Dose] 81 mg PO DAILY 10/31/12 08/03/19 History montelukast 10 mg PO DAILY tab-cap 10/31/12 08/03/19 History omeprazole [Prilosec] 40 mg PO DAILY 10/31/12 08/03/19 History propranolol [Inderal LA] 160 mg PO TID 10/31/12 08/03/19 History multivitamin [Daily Multi-Vitamin] 1 ea PO DAILY 05/10/13 08/03/19 History cholecalciferol (vitamin D3) 2,000 unit PO DAILY 01/16/16 08/03/19 History [Vitamin D3] fluticasone propionate 2 spry NS DAILY PRN 01/16/16 08/03/19 History atorvastatin [Lipitor] 1 tab PO DAILY 02/01/17 08/03/19 History albuterol sulfate [Ventolin HFA] 90 mcg INHALATION 4-6XD 05/04/18 08/03/19 History folic acid 1 mg tablet 1 mg PO DAILY 06/12/18 08/03/19 History glucagon HCl 1 mg solution for 1 mg IM ONCE PRN 06/12/18 08/03/19 History injection insulin lispro 100 unit/mL See Rx Instructions SC BID 06/12/18 11/12/18 History subcutaneous pen mycophenolate mofetil [CellCept] 500 mg PO BID 11/12/18 08/03/19 History gabapentin 600 mg PO TID #0 cap 11/15/18 08/03/19 Rx insulin aspart U-100 [Novolog 0 units SUBCUT 0800,1200,1700 #0 ml 11/15/18 08/03/19 Rx Flexpen U-100 Insulin] ipratropium-albuterol 3 ml UPD Q6H #0 ml 11/15/18 08/03/19 Rx tacrolimus 1 mg PO DAILY #0 cap 11/15/18 08/03/19 Rx insulin detemir U-100 [Levemir 55 units SUBCUT HS 08/03/19 08/03/19 History FlexTouch U-100 Insuln] liraglutide [Victoza 2-Nigel] 1.8 mg SUBCUT QDAY 08/03/19 08/03/19 History primidone 50 mg PO BID 08/03/19 08/03/19 History tiotropium-olodaterol [Stiolto 2 puff INHALATION DAILY 08/03/19 08/03/19 History Respimat] Allergies Allergy/AdvReac Type Severity Reaction Status Date / Time levofloxacin Allergy Mild Unverified 08/03/19 01:53 sulfamethoxazole Allergy Mild Unverified 08/03/19 01:53 [From Bactrim] trimethoprim [From Bactrim] Allergy Mild Unverified 08/03/19 01:53 clindamycin Allergy Skin Rash Verified 08/03/19 01:53 ibuprofen Allergy Verified 08/03/19 01:53 Penicillins Allergy SWELLING Verified 08/03/19 01:53 tree nut Allergy Verified 08/03/19 01:53 lisinopril AdvReac KIDNEY Verified 08/03/19 01:53 SHUT DOWN yaneth inhibitors Allergy Mild Skin Rash Uncoded 08/03/19 01:53 CATS & BIRDS AdvReac Intermediate WHEEZING Uncoded 08/03/19 01:53 Exam Narrative Exam Narrative: Morbidly obese male lying on [facility] in semi-wells position. He is lethargic but easily aroused and answers questions appropriately. HEENT Neck obese supple nontender no JVD normal carotid pulses no bruits Lungs reveal some coarse rhonchi at the left lung base and some rales at the right base upper [place] are clear Heart is irregular in rhythm with frequent ectopic and/or skipped beats. No appreciable murmur or rub Abdomen is obese soft and nontender without appreciable bruits and no guarding or rebound tenderness. Lower extremities he is status post bilateral BKA and has prosthesis on his legs. Results Imaging Chest x-ray: report reviewed (PROCEDURE INFORMATION: Exam: XR Chest, 2 Views Exam date and time: 08/03/2019 1:56 AM Age: 64 years old Clinical indication: Shortness of breath and other: Difficulty swallowing; Additional info: Difficulty swallowing, throat swelling, immunocompromised TECHNIQUE: Imaging protocol: XR of the chest V) Additional studies: PROCEDURE INFORMATION: Exam: CT Neck Without Contrast Exam date and time: 08/03/2019 3:13 AM Age: 64 years old Clinical indication: Mass, lump, or swelling in neck; Additional info: Difficulty swallowing, throat swelling, immunocompromised TECHNIQUE: Imaging protocol: Computed tomography images of the neck without contrast. Radiation optimization: All CT scans at this facility use at least one of these dose optimization techniques: automated exposure control; mA and/or kV adjustment per patient size (includes targeted exams where dose is matched to clinical indication); or iterative reconstruction. COMPARISON: No relevant prior studies available. FINDINGS: Sinuses: Mucoperiosteal thickening/partial opacification of all but the left sphenoid sinus. Multiple opacified ethmoid air cells. Prior sinonasal surgery. Nasopharynx: Symmetric prominence of nasopharyngeal soft tissues. Narrowing of inferior nasopharyngeal airway in part due to prominence of soft palate. Oropharynx: Unremarkable. No significant tonsillar enlargement. Hypopharynx: Unremarkable Larynx: Unremarkable. Normal epiglottis. Retropharyngeal space: Unremarkable. Submandibular/Parotid glands: Fatty infiltration of the parotid glands. Glands are normal in size. Thyroid: Normal. No enlarged or calcified nodules. Lymph nodes: Unremarkable. No lymphadenopathy. Trachea: Visualized trachea is unremarkable. Lungs: Unremarkable as visualized. Mastoid air cells: Normal mastoid air cells. Bones/joints: Unremarkable. No acute fracture. Soft tissues: Unremarkable. No significant soft tissue swelling. IMPRESSION: 1. Narrowing of nasal pharyngeal airway due to prominent soft palate and posterior nasopharyngeal soft tissues. 2. Pansinusitis. 3. Fatty infiltration of parotid glands. Dictated and Authenticated by: Torsten Chaidez MD. EKG: image reviewed Labs Result diagrams: 08/03/19 02:15 08/03/19 02:15 Labs: Laboratory Results - last 24 hr 08/03/19 08/03/19 08/03/19 02:15 02:15 02:15 WBC 11.52 H RBC 3.47 L Hgb 10.6 L Hct 34.5 L MCV 99.4 H MCH 30.5 MCHC 30.7 L RDW 14.0 Plt Count 229 MPV 8.4 Immature Gran % 0.1 Neutrophils % 60.9 Lymphocytes % 25.1 Monocytes % 9.8 Eosinophils % 3.6 Basophils % 0.5 Absolute Neutrophils 7.02 H Absolute Lymphocytes 2.89 Absolute Monocytes 1.13 H Absolute Eosinophils 0.41 Absolute Basophils 0.06 PT 11.3 H INR 1.1 APTT 28.7 VBG pH 7.27 L VBG pCO2 51 H VBG pO2 47 H VBG HCO3 23 VBG Total CO2 22 VBG O2 Saturation 79 VBG Base Excess -3.7 L Sodium Potassium Chloride Carbon Dioxide Anion Gap BUN Creatinine Estimated GFR/1.73 m2 Glucose Lactate Calcium Total Bilirubin AST ALT Alkaline Phosphatase Total Protein Albumin Procalcitonin TSH 08/03/19 08/03/19 08/03/19 02:15 02:15 02:15 WBC RBC Hgb Hct MCV MCH MCHC RDW Plt Count MPV Immature Gran % Neutrophils % Lymphocytes % Monocytes % Eosinophils % Basophils % Absolute Neutrophils Absolute Lymphocytes Absolute Monocytes Absolute Eosinophils Absolute Basophils PT INR APTT VBG pH VBG pCO2 VBG pO2 VBG HCO3 VBG Total CO2 VBG O2 Saturation VBG Base Excess Sodium 140 Potassium 5.8 H Chloride 106 Carbon Dioxide 26.5 Anion Gap 7.5 BUN 42 H Creatinine 2.66 H Estimated GFR/1.73 m2 24.17 Glucose 248 H Lactate 2.0 H Calcium 8.5 Total Bilirubin 0.5 AST 16 ALT 23 Alkaline Phosphatase 159 H Total Protein 7.2 Albumin 2.9 L Procalcitonin 0.1 TSH 1.41 Last Vital Signs Temp 36.9 C 08/03/19 01:46 Pulse 81 08/03/19 04:16 Resp 18 08/03/19 04:20 BP 124/64 08/03/19 04:16 Pulse Ox 99 08/03/19 04:20
[2019-08-03] MEDS: DOXYCYCLINE 100 MG in Normal Saline 100 ML IVPB ×2 (05:07→16:23)
[2019-08-03] MEDS: Dextrose 50%-Water 25 GM/50 ML SYR (06:15)
[2019-08-03] MEDS: VANCOMYCIN 2,000 MG in Normal Saline 500 ML 333.3333 MG IVPB (06:43)
[2019-08-03] MEDS: Normal Saline 1,000 ML 85 ML IV (06:46)
[2019-08-03] MEDS: Dextrose 50%-Water 25 GM/50 ML SYR IVP (07:04)
[2019-08-03] MEDS: Normal Saline Flush 10 ML SYR IVP ×4 (07:05→22:11)
[2019-08-03 07:07] LABS: Lactate 0.7 mmol/L (0.6-1.4)
[2019-08-03 07:23] LABS: Anion Gap 11.1 mmol/L (3-11); BUN 42 mg/dL (7-18); CO2 22.9 mmol/L (21.0-32.0); CREATININE 2.58 mg/dL (0.70-1.30); Calcium 8.8 mg/dL (8.5-10.1); Chloride 108 mmol/L (98-107); Estimated GFR 25.04 (mL/min/1.73m2); Glucose 79 mg/dL (74-106); Potassium 4.9 mmol/L (3.5-5.1); Sodium 142 mmol/L (136-145)
--- NOTE | 2019-08-03 07:43 | NUR.NOTE ---
Nursing Note: 0550H Patient arrived in the Med/surg floor per stretcher accompanied with ER nurse and family members. Admitted to room 231. Transferred to bed safely. Vital signs and assessments taken see documentation. Patient very drowsy and pale. Patient has bilateral BKA stumps. Patient noted to have decreased responsiveness, fingerstick taken as 41. One amp of D50/50 was given. Finger stick re-checked after 15 minutes. See finger stick documentation. Referred to MD. Seen by MD, relayed recent finger stick and MD ordered STAT additional half amp of D50/50. Medication given and finger stick rechecked. Patient more responsive, able to converse and make needs known. Latest value taken prior to hand-off report to day shift nurse was 112.
[2019-08-03] MEDS: Cholecalciferol (Vitamin D3) 1,000 UNIT TAB 2000 UNITS PO (07:44)
[2019-08-03] MEDS: Montelukast 10 MG TAB PO (07:45)
[2019-08-03] MEDS: Folic Acid 1 MG TAB PO (07:45)
[2019-08-03] MEDS: Tacrolimus 0.5 MG CAP 1 MG PO (07:45)
[2019-08-03] MEDS: guaiFENesin 600 MG TABCR PO ×2 (07:45→19:47)
[2019-08-03] MEDS: Aspirin E.C. 81 MG TABEC PO (07:46)
[2019-08-03] MEDS: Gabapentin 300 MG CAP 600 MG PO (07:46)
[2019-08-03] MEDS: Multivitamin TAB 1 TAB PO (07:46)
[2019-08-03] MEDS: Omeprazole 20 MG CAPCR 40 MG PO (07:47)
[2019-08-03] MEDS: Heparin 5,000 UNITS/ML VIAL 5000 UNITS SC ×3 (07:48→23:45)
[2019-08-03] MEDS: Hydrocortisone SOD SUC. 100 MG VIAL IVP (08:33)
--- NOTE | 2019-08-03 09:08 | INITIAL_ITS ---
Care Management Initial Assess REASON FOR HOSPITALIZATION:: Pneumonia, Hyperkalemia, ANSELMO, Wenckebach AV Block PAST MEDICAL HISTORY/PAST SURGICAL HISTORY:: Immunosuppression, Kidney transplant approx ten years ago for diabetic neuropathy, diabetic vasculopathy, S/P bilateral [id number] amputations; left leg 20 years ago, right leg 7 years ago, Hx of ventilator-associated pneumonia following ICU course 2012, Morbid obesity, hypertension, chronic nasal congestion, Vitamin D deficiency, GERD, Intention tremor, hyperlipidemia, CAD, hx of tobacco addiction with approximately 50 pack year history. PREVIOUS FUNCTIONAL STATUS/SOCIAL/FAMILY SUPPORTS:: Leroy resides with his Linda of 5 years and his mom Brie in [place]. He retired and disabled, due to bilateral BKA's. Leroy is independent at baseline, drives with hand assist controls. He enjoys going to lawn sales and mowing his lawn when weather permits. CURRENT FUNCTIONAL STATUS:: Reuben was lying in bed, his mom and at his bedside and a friend as well. He appeared in good spirits, was conversant and pleasant in interaction. ADVANCE DIRECTIVES:: On file - Jeremie Rodriguez is agent, Brie Torres is alternate, Leroy requested to update his document; new document was provided. 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 He denies any addtional home services. His specialists are located at [facility] and he meets with a DM educator in the community. PRIMARY CARE PHYSICIAN:: Dr. Sanford POTENTIAL DISCHARGE NEEDS:: Follow up appointment with primary care provider, BRIGITTE provided forms for requesting disability permit through the DMV. PATIENT/FAMILY EDUCATION NEEDS:: Discharge education, limitations and follow up plan of care. ANTICIPATED BARRIERS TO DISCHARGE:: None identified. TRANSPORTATION:: Linda will transport via private vehicle. PLAN:: Robert continues to be closely monitored and treated at this time. Anticipate he will discharge home with resumption of supports. CM continues to follow.
[2019-08-03 09:12] LABS: Bilirubin Negative (Negative); Blood Negative (Negative); Clarity Clear (Clear); Glucose Negative (Negative); Ketones Negative (Negative); Leukocyte Esterase Negative (Negative); Nitrite Negative (Negative); Specific Gravity 1.015 (1.005-1.025); Urobilinogen 0.2 EU/dL (Up TO 0.2); pH 5.5 (5-8)
[2019-08-03 09:28] LABS: Bacteria Negative HPF (Negative); Epithelial Cells Few HPF (Negative)
[2019-08-03 09:32] LABS: C & S Indicated? Yes; Casts 0-2 Coarse Granular LPF (Negative); Crystals Other HPF (Negative); Mucus Negative (Negative)
[2019-08-03] MEDS: Tiotropium/Olodaterol 10 PUFF INHALER IH (09:45)
--- NOTE | 2019-08-03 10:59 | NUR.NOTE ---
Nursing Note: D10 not hung as patient's finger stick was above 100 x 2
--- NOTE | 2019-08-03 10:59 | W.NUTCONSULT ---
Date of service: 08/03/19 Time of Service: 10:59 Nutritional Consult ASSESSMENT: 64 year old male admitted with dysphagia, dyspnea and cough to ER. S/p kidney transplant. PMH: poorly controlled IDDM and s/p Bilater BKA, HTN. BMI indicates class 2 obesity. DM consult received, CDE to educate. Following renal diet with adequate intake. At high nutritional risk in view of multiple co morbidities. Declined weight management education at this time, provided contact information if desire nutritional counseling for weight loss. INTERVENTION: Dm consult Time Spent in Nutritional Counseling and Treatment: 5 time spent face to face
[2019-08-03] MEDS: Primidone 50 MG TAB 25 MG PO ×2 (11:12→19:49)
[2019-08-03] MEDS: Insulin Aspart 300 UNITS/3 ML PEN SC ×3 (12:10→23:44)
[2019-08-03] MEDS: Hydrocortisone SOD SUC. 100 MG VIAL 50 MG IVP ×2 (14:11→22:11)
[2019-08-03] MEDS: Gabapentin 400 MG CAP PO ×2 (14:12→19:47)
--- NOTE | 2019-08-03 16:21 | W.PM.PROGNOT ---
Date of Service Date of service: 08/03/19 Time of Service: 16:22 Subjective Subjective Interval history since last seen: Patient feels better. No more hypoglycemia this am. He did not end up requiring D10. He was placed on stress dose steroids, which we will wean faster than normal because the patient is not actually on prednisone. He complains of difficulty swallowing and seems interested in a swallow eval, which has been placed. Cough became productive with the use of IS/A capella. Breathing is getting better. Patient is concerned his potassium went up because of initiation of losartan as outpatient by Dr Garnett. He and his mother would like me to let Dr Garnett know. His latest potassium is 4.9. VSS. Afebrile. On physical exam he is alert, though slightly inattentive. He is 100% appropriate as far as telling his history. His respiratory exam reveals coarse breath sounds. Will increase IVF to 150 cc/hr as the patient states his urine color shows that he is still dehydrated. Continue empiric doxycycline/aztreonam, nebs. Wean steroids. Will contact Dr Garnett per patient's request. Objective Objective Clinical Data: Abnormal lab results 08/03/19 08/03/19 08/03/19 Range/Units 02:15 02:15 02:15 WBC 11.52 H (4.4-10.8) k/cumm RBC 3.47 L (4.50-6.00) m/cumm Hgb 10.6 L (13.5-17.5) g/dL Hct 34.5 L (40.0-50.0) % MCV 99.4 H (80-95) fL MCHC 30.7 L (32.0-36.0) g/dL Absolute Neutrophils 7.02 H (1.2-6.7) k/cumm Absolute Monocytes 1.13 H (0.11-0.7) k/cumm PT 11.3 H (9.3-11.0) sec VBG pH 7.27 L (7.35-7.45) VBG pCO2 51 H (34-47) mm/Hg VBG pO2 47 H (28-44) mm/Hg VBG Base Excess -3.7 L (-3-3) mmol/L Potassium (3.5-5.1) mmol/L Chloride (98-107) mmol/L Anion Gap (3-11) mmol/L BUN (7-18) mg/dL Creatinine (0.70-1.30) mg/dL Glucose (74-106) mg/dL Lactate (0.6-1.4) mmol/L Alkaline Phosphatase (46-116) U/L Albumin (3.4-5.0) g/dL Urine Protein (Negative) mg/dL Urine RBC (0-2) HPF 08/03/19 08/03/19 08/03/19 Range/Units 02:15 02:15 06:55 WBC (4.4-10.8) k/cumm RBC (4.50-6.00) m/cumm Hgb (13.5-17.5) g/dL Hct (40.0-50.0) % MCV (80-95) fL MCHC (32.0-36.0) g/dL Absolute Neutrophils (1.2-6.7) k/cumm Absolute Monocytes (0.11-0.7) k/cumm PT (9.3-11.0) sec VBG pH (7.35-7.45) VBG pCO2 (34-47) mm/Hg VBG pO2 (28-44) mm/Hg VBG Base Excess (-3-3) mmol/L Potassium 5.8 H (3.5-5.1) mmol/L Chloride 108 H (98-107) mmol/L Anion Gap 11.1 H (3-11) mmol/L BUN 42 H 42 H (7-18) mg/dL Creatinine 2.66 H 2.58 H (0.70-1.30) mg/dL Glucose 248 H (74-106) mg/dL Lactate 2.0 H (0.6-1.4) mmol/L Alkaline Phosphatase 159 H (46-116) U/L Albumin 2.9 L (3.4-5.0) g/dL Urine Protein (Negative) mg/dL Urine RBC (0-2) HPF 08/03/19 Range/Units 08:50 WBC (4.4-10.8) k/cumm RBC (4.50-6.00) m/cumm Hgb (13.5-17.5) g/dL Hct (40.0-50.0) % MCV (80-95) fL MCHC (32.0-36.0) g/dL Absolute Neutrophils (1.2-6.7) k/cumm Absolute Monocytes (0.11-0.7) k/cumm PT (9.3-11.0) sec VBG pH (7.35-7.45) VBG pCO2 (34-47) mm/Hg VBG pO2 (28-44) mm/Hg VBG Base Excess (-3-3) mmol/L Potassium (3.5-5.1) mmol/L Chloride (98-107) mmol/L Anion Gap (3-11) mmol/L BUN (7-18) mg/dL Creatinine (0.70-1.30) mg/dL Glucose (74-106) mg/dL Lactate (0.6-1.4) mmol/L Alkaline Phosphatase (46-116) U/L Albumin (3.4-5.0) g/dL Urine Protein 100 H (Negative) mg/dL Urine RBC 3-5 H (0-2) HPF Vital Signs Temperature 37.3 C 08/03/19 15:45 Temperature Source Tympanic 08/03/19 15:45 Pulse 76 08/03/19 15:45 Pulse Rhythm Regular 08/03/19 09:15 Pulse 65 08/03/19 05:01 Respiratory Rate 19 08/03/19 15:45 Respiratory Effort Non-Labored 08/03/19 11:29 Respiratory Depth Normal 08/03/19 11:29 Respiratory Pattern Apnea 08/03/19 11:29 Blood Pressure 140/66 08/03/19 15:45 Blood Pressure Mean 65 08/03/19 05:01 Pulse Oximetry 95 08/03/19 15:45 Oxygen Delivery Method Room Air 08/03/19 15:45 Oxygen Flow Rate 0 08/03/19 15:45 Pain Level 0 08/03/19 15:45 Intake & Output 08/02/19 08/03/19 08/03/19 23:59 11:59 23:59 Intake Total 1989 200 / 2190 Balance 1989 / 0 Weight 141.1 kg Intake: IV 1270 / 1370 100 / 1370 Oral 720 / 820 100 / 820 Laboratory Results WBC 11.52 k/cumm (4.4-10.8) H 08/03/19 02:15 RBC 3.47 m/cumm (4.50-6.00) L 08/03/19 02:15 Hgb 10.6 g/dL (13.5-17.5) L 08/03/19 02:15 Hct 34.5 % (40.0-50.0) L 08/03/19 02:15 MCV 99.4 fL (80-95) H 08/03/19 02:15 MCH 30.5 pg (27.0-33.0) 08/03/19 02:15 MCHC 30.7 g/dL (32.0-36.0) L 08/03/19 02:15 RDW 14.0 % (11.8-14.1) 08/03/19 02:15 Plt Count 229 x1000/uL (130-400) 08/03/19 02:15 MPV 8.4 fL (8.0-11.0) 08/03/19 02:15 Immature Gran % 0.1 % 08/03/19 02:15 Neutrophils % 60.9 08/03/19 02:15 Lymphocytes % 25.1 08/03/19 02:15 Monocytes % 9.8 08/03/19 02:15 Eosinophils % 3.6 08/03/19 02:15 Basophils % 0.5 08/03/19 02:15 Absolute Neutrophils 7.02 k/cumm (1.2-6.7) H 08/03/19 02:15 Absolute Lymphocytes 2.89 k/cumm (1.2-3.4) 08/03/19 02:15 Absolute Monocytes 1.13 k/cumm (0.11-0.7) H 08/03/19 02:15 Absolute Eosinophils 0.41 k/cumm (0.0-0.7) 08/03/19 02:15 Absolute Basophils 0.06 k/cumm (0.0-0.2) 08/03/19 02:15 PT 11.3 sec (9.3-11.0) H 08/03/19 02:15 INR 1.1 (0.9-1.1) 08/03/19 02:15 APTT 28.7 sec (21.0-31.4) 08/03/19 02:15 VBG pH 7.27 (7.35-7.45) L 08/03/19 02:15 VBG pCO2 51 mm/Hg (34-47) H 08/03/19 02:15 VBG pO2 47 mm/Hg (28-44) H 08/03/19 02:15 VBG HCO3 23 mmol/L (22-28) 08/03/19 02:15 VBG Total CO2 22 mmol/L (22-29) 08/03/19 02:15 VBG O2 Saturation 79 % (70-80) 08/03/19 02:15 VBG Base Excess -3.7 mmol/L (-3-3) L 08/03/19 02:15 Sodium 142 mmol/L (136-145) 08/03/19 06:55 Potassium 4.9 mmol/L (3.5-5.1) 08/03/19 06:55 Chloride 108 mmol/L (98-107) H 08/03/19 06:55 Carbon Dioxide 22.9 mmol/L (21.0-32.0) 08/03/19 06:55 Anion Gap 11.1 mmol/L (3-11) H 08/03/19 06:55 BUN 42 mg/dL (7-18) H 08/03/19 06:55 Creatinine 2.58 mg/dL (0.70-1.30) H 08/03/19 06:55 Estimated GFR/1.73 m2 25.04 (mL/min/1.73m2) 08/03/19 06:55 Glucose 79 mg/dL (74-106) D 08/03/19 06:55 Lactate 0.7 mmol/L (0.6-1.4) 08/03/19 06:55 Calcium 8.8 mg/dL (8.5-10.1) 08/03/19 06:55 Total Bilirubin 0.5 mg/dL (0.2-1.0) 08/03/19 02:15 AST 16 U/L (15-37) 08/03/19 02:15 ALT 23 U/L (16-63) 08/03/19 02:15 Alkaline Phosphatase 159 U/L (46-116) H 08/03/19 02:15 Total Protein 7.2 g/dL (6.4-8.2) 08/03/19 02:15 Albumin 2.9 g/dL (3.4-5.0) L 08/03/19 02:15 Procalcitonin 0.1 ng/mL 08/03/19 02:15 TSH 1.41 uIU/mL (0.36-3.74) 08/03/19 02:15 Urine Color Yellow (Yellow) 08/03/19 08:50 Urine Clarity Clear (Clear) 08/03/19 08:50 Urine pH 5.5 (5-8) 08/03/19 08:50 Ur Specific [place] 1.015 (1.005-1.025) 08/03/19 08:50 Urine Protein 100 mg/dL (Negative) H 08/03/19 08:50 Urine Ketones Negative mg/dL (Negative) 08/03/19 08:50 Urine Blood Negative (Negative) 08/03/19 08:50 Urine Nitrite Negative (Negative) 08/03/19 08:50 Urine Bilirubin Negative (Negative) 08/03/19 08:50 Urine Urobilinogen 0.2 EU/dL (Up TO 0.2) 08/03/19 08:50 Ur Leukocyte Esterase Negative (Negative) 08/03/19 08:50 Urine RBC 3-5 HPF (0-2) H 08/03/19 08:50 Urine WBC 5-10 HPF (0-5) 08/03/19 08:50 Ur Epithelial Cells Few HPF (Negative) 08/03/19 08:50 Urine Crystals Other HPF (Negative) 08/03/19 08:50 Urine Bacteria Negative HPF (Negative) 08/03/19 08:50 Urine Casts 0-2 coarse granular LPF (Negative) 08/03/19 08:50 Urine Mucus Negative (Negative) 08/03/19 08:50 Ur Culture Indicated? Yes 08/03/19 08:50 Urine Glucose Negative mg/dL (Negative) 08/03/19 08:50
--- NOTE | 2019-08-03 17:26 | PHARADMIT ---
Admission Pharmacy Clinical Review Pneumonia, HyperK, ANSELMO, Wenckeback AV block Code Status Full Code Current Weight 141.1 kg Renally Cleared and Narrow Therapeutic Index Meds CrCl ~43 using adjusted bw -- gabapentin dose decreased QTc Value / Action Taken QTc 443 BP Control, Fever BP 140/66, afebrile Electrolytes reviewed Na 142, K+ 4.9 (down from 5.9), Mag -wasnt drawn DVT Prophylaxis Heparin sc Opiate Usage / Scheduled Bowel Regimen Ordered no, prn Plt/SCr for Heparin / Enoxaparin Plt 229, Scr 2.58 INR for Warfarin H/H stable, WBC/Bands H/H 10.6/34.5, WBC 11.52 Antibiotic appropriateness Aztreonam/doxycycline Cultures and Sensitivities Flu negative, others pending Surgical ABX d/c within 24 hr DM control / Insulin Dosing glargine 25u and aspart Heart Failure (Check EF%) (SHANDRA's, B-Block, Diuretics) propranolol (not ordered) IV to PO Switch Home Meds Reviewed Home Meds Not Ordered propranolol (held bc of [place] block), joannetoza, Comments Hypoglycemia upon transfer to [place] -- given amp of D50, levemir dosed decreased Dr. Miller's note mentions losartan being held but it is not listed in home med list - update?
[2019-08-03 17:38] LABS: Glucose 444 mg/dL (74-106)
[2019-08-03] MEDS: Atorvastatin 20 MG TAB PO (19:48)
[2019-08-03] MEDS: Normal Saline 1,000 ML 150 ML IV (19:50)
[2019-08-03 23:05] LABS: Glucose 518 mg/dL (74-106)
[2019-08-03] MEDS: Acetaminophen 325 MG TAB PO (23:46)
[2019-08-04] VITALS (7 sets, daily range): BP systolic 144–178; BP diastolic 64–75; PULSE 70–74; RESP 17–20; TEMP 36.4–37.5; O2SAT 95–96
[2019-08-04] MEDS: Normal Saline 1,000 ML 150 ML IV ×3 (03:01→22:10)
[2019-08-04] MEDS: DOXYCYCLINE 100 MG in Normal Saline 100 ML IVPB ×2 (03:56→15:51)
[2019-08-04] MEDS: Albuterol/Ipratropium 3 ML UPD VIAL UPD ×4 (06:21→23:43)
[2019-08-04] MEDS: Hydrocortisone SOD SUC. 100 MG VIAL 50 MG IVP ×2 (06:21→17:59)
[2019-08-04] MEDS: Normal Saline Flush 10 ML SYR IVP ×2 (06:22→18:01)
[2019-08-04 07:16] LABS: Abs Immature Grans 0.01 k/cumm (0.0-0.09); Absolute Basophil Count 0.02 k/cumm (0.0-0.2); Absolute Eosinophil Count 0.05 k/cumm (0.0-0.7); Absolute Lymphocyte Count 1.74 k/cumm (1.2-3.4); Absolute Monocyte Count 0.66 k/cumm (0.11-0.7); Basophils % 0.2; Eosinophils % 0.6; HCT 30.2 % (40.0-50.0); HGB 9.1 g/dL (13.5-17.5); Immature Grans % 0.1 %; Lymphocytes % 20.8; Mean Corp. HGB Concentration 30.1 g/dL (32.0-36.0); Mean Corpuscular Hemoglobin 29.4 pg (27.0-33.0); Mean Corpuscular Volume 97.7 fL (80-95); Mean Platelet Volume 8.5 fL (8.0-11.0); Monocytes % 7.9; Neutrophils % 70.4; Platelet Count 210 x1000/uL (130-400); RBC 3.09 m/cumm (4.50-6.00); RBC Distribution Width 13.8 % (11.8-14.1); White Blood Cell Count 8.38 k/cumm (4.4-10.8)
[2019-08-04] MEDS: Omeprazole 20 MG CAPCR 40 MG PO (07:29)
[2019-08-04] MEDS: Heparin 5,000 UNITS/ML VIAL 5000 UNITS SC ×3 (07:29→23:42)
[2019-08-04 07:34] LABS: Anion Gap 9.7 mmol/L (3-11); BUN 47 mg/dL (7-18); CO2 21.3 mmol/L (21.0-32.0); CREATININE 2.55 mg/dL (0.70-1.30); Calcium 8.5 mg/dL (8.5-10.1); Chloride 104 mmol/L (98-107); Estimated GFR 25.38 (mL/min/1.73m2); Glucose 411 mg/dL (74-106); Magnesium 1.4 mg/dL (1.8-2.4); Sodium 135 mmol/L (136-145)
[2019-08-04] MEDS: Insulin Aspart 300 UNITS/3 ML PEN SC ×4 (07:57→22:11)
[2019-08-04] MEDS: Gabapentin 400 MG CAP PO ×3 (07:59→20:02)
[2019-08-04] MEDS: guaiFENesin 600 MG TABCR PO ×2 (07:59→20:03)
[2019-08-04] MEDS: Tacrolimus 0.5 MG CAP 1 MG PO (07:59)
[2019-08-04] MEDS: Folic Acid 1 MG TAB PO (07:59)
[2019-08-04] MEDS: Aspirin E.C. 81 MG TABEC PO (07:59)
[2019-08-04] MEDS: Cholecalciferol (Vitamin D3) 1,000 UNIT TAB 2000 UNITS PO (07:59)
[2019-08-04] MEDS: Multivitamin TAB 1 TAB PO (07:59)
[2019-08-04] MEDS: Primidone 50 MG TAB 25 MG PO ×2 (08:00→20:03)
[2019-08-04] MEDS: Montelukast 10 MG TAB PO (08:00)
[2019-08-04] MEDS: Tiotropium/Olodaterol 10 PUFF INHALER IH (09:16)
[2019-08-04 12:24] LABS: Glucose 409 mg/dL (74-106)
[2019-08-04] MEDS: MAGNESIUM SULFATE 2 GM/50 ML BAG IVPB (12:38)
[2019-08-04 12:41] LABS: Tacrolimus 2.8 ng/mL (See Note)
--- NOTE | 2019-08-04 13:50 | PGE_ITS ---
Date of Service Date of service: 08/04/19 Time of Service: 12:52 Assessment and Plan Assessment and plan (1) Left lower lobe pneumonia: Status: Acute Assessment and plan: Continue broad-spectrum antibiotics including aztreonam and doxycycline pending the results of his blood cultures. Sputum is growing Staph Aureus. Procalcitonin level and blood lactate level do not sugge st significant systemic bacterial infection, narrow antibiotics by tomorrow if he continues to improve. Continue aerosolized bronchodilators. Taper steroids. Qualifiers: Pneumonia type: due to unspecified organism Qualified Code(s): J18.9 - Pneumonia, unspecified organism (2) Hyperkalemia: Status: Resolved Assessment and plan: Patient was initially acutely treated appropriately with insulin and calcium chloride given his hyperacute T wave changes and new onset Wenckebach block, then recieved kayexalate. K+ stable this morning. Follow. Magnesium replaced. (3) Acute kidney injury superimposed on chronic kidney disease: Status: Acute Assessment and plan: Stable from yesterday, not much above chronic levels in low 2s. 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 continue CellCept and Prograf. Anemia of CKD also noted. Follow up as outpatient. 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 Repeat his EKG now that his bradycardia and hyperkalemia have resolved, restart propranlol if no longer in block. (5) Uncontrolled insulin dependent diabetes mellitus: Status: Acute Assessment and plan: Blood sugars all in 400s+ after one episode of low sugar the day before. His liraglutide has been held. I don't see whey he couldn't restart this. He is on steroids, which will be gradually tapered. I will conservatively increase bolus insulin before meals and go back to 25 units levemir (was previously 60 units but only got 20 units last night). (6) Hypertension: Status: Chronic Assessment and plan: In light of his hyperkalemia continue to withhold his losartan indefinitely. We may restart his propranolol as above. 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 Agreed with management Feeling better today. He is eating and drinking. Breathing has gotten better, coughing less though still has green sputum. No chest pain or pressure. Exam Narrative Exam Narrative: Sitting up comfortably in bed, A&O, NAD. HEENT Neck obese supple nontender no JVD Lungs reveal some mild coarse rhonchi at the left lung base but otherwise clear. Heart is irregular in rhythm with some ectopic and/or skipped beats. No appreciable murmur or rub Abdomen is soft and nontender, no palpable masses Lower extremities he is status post bilateral BKA, stumps benign, no edema Objective Objective Clinical Data: Abnormal lab results 08/03/19 08/03/19 08/04/19 Range/Units 17:18 22:37 06:45 RBC (4.50-6.00) m/cumm Hgb (13.5-17.5) g/dL Hct (40.0-50.0) % MCV (80-95) fL MCHC (32.0-36.0) g/dL Sodium 135 L (136-145) mmol/L BUN 47 H (7-18) mg/dL Creatinine 2.55 H (0.70-1.30) mg/dL Glucose 444 H D 518 H* 411 H D (74-106) mg/dL Magnesium 1.4 L (1.8-2.4) mg/dL 08/04/19 08/04/19 Range/Units 06:45 12:10 RBC 3.09 L (4.50-6.00) m/cumm Hgb 9.1 L (13.5-17.5) g/dL Hct 30.2 L (40.0-50.0) % MCV 97.7 H (80-95) fL MCHC 30.1 L (32.0-36.0) g/dL Sodium (136-145) mmol/L BUN (7-18) mg/dL Creatinine (0.70-1.30) mg/dL Glucose 409 H (74-106) mg/dL Magnesium (1.8-2.4) mg/dL Vital Signs Temperature 36.4 C L 08/04/19 07:25 Temperature Source Tympanic 08/04/19 07:25 Pulse 70 08/04/19 08:00 Pulse Rhythm Regular 08/04/19 07:20 Pulse 65 08/03/19 05:01 Respiratory Rate 17 08/04/19 07:25 Respiratory Effort Non-Labored 08/04/19 07:20 Respiratory Depth Normal 08/04/19 07:20 Respiratory Pattern Normal 08/04/19 07:20 Blood Pressure 178/75 H 08/04/19 07:25 Blood Pressure Mean 65 08/03/19 05:01 Pulse Oximetry 96 08/04/19 07:25 Oxygen Delivery Method Room Air 08/04/19 07:25 Oxygen Flow Rate 0 08/04/19 07:25 Pain Level 0 08/04/19 07:25 Intake & Output 08/03/19 08/04/19 08/04/19 23:59 11:59 23:59 Intake Total 2180.000 / 4170.000 2700 / 2700 Output Total 1125 / 1125 1025 / 1025 Balance 1055.000 / 3045.000 1675 / 1675 Weight 144.8 kg Intake: IV 1300.000 / 2570.000 2100 / 2100 Oral 880 / 1600 600 / 600 Output: Urine 1125 / 1125 1025 / 1025 Other: Urine Color Yellow Yellow Urine Appearance Clear Clear Urine Odor Normal None Comment per patient he has voided twice today Voiding Methods Toilet Urinal Laboratory Results WBC 8.38 k/cumm (4.4-10.8) 08/04/19 06:45 RBC 3.09 m/cumm (4.50-6.00) L 08/04/19 06:45 Hgb 9.1 g/dL (13.5-17.5) L 08/04/19 06:45 Hct 30.2 % (40.0-50.0) L 08/04/19 06:45 MCV 97.7 fL (80-95) H 08/04/19 06:45 MCH 29.4 pg (27.0-33.0) 08/04/19 06:45 MCHC 30.1 g/dL (32.0-36.0) L 08/04/19 06:45 RDW 13.8 % (11.8-14.1) 08/04/19 06:45 Plt Count 210 x1000/uL (130-400) 08/04/19 06:45 MPV 8.5 fL (8.0-11.0) 08/04/19 06:45 Immature Gran % 0.1 % 08/04/19 06:45 Neutrophils % 70.4 08/04/19 06:45 Lymphocytes % 20.8 08/04/19 06:45 Monocytes % 7.9 08/04/19 06:45 Eosinophils % 0.6 08/04/19 06:45 Basophils % 0.2 08/04/19 06:45 Absolute Neutrophils 5.90 k/cumm (1.2-6.7) 08/04/19 06:45 Absolute Lymphocytes 1.74 k/cumm (1.2-3.4) 08/04/19 06:45 Absolute Monocytes 0.66 k/cumm (0.11-0.7) 08/04/19 06:45 Absolute Eosinophils 0.05 k/cumm (0.0-0.7) 08/04/19 06:45 Absolute Basophils 0.02 k/cumm (0.0-0.2) 08/04/19 06:45 PT 11.3 sec (9.3-11.0) H 08/03/19 02:15 INR 1.1 (0.9-1.1) 08/03/19 02:15 APTT 28.7 sec (21.0-31.4) 08/03/19 02:15 VBG pH 7.27 (7.35-7.45) L 08/03/19 02:15 VBG pCO2 51 mm/Hg (34-47) H 08/03/19 02:15 VBG pO2 47 mm/Hg (28-44) H 08/03/19 02:15 VBG HCO3 23 mmol/L (22-28) 08/03/19 02:15 VBG Total CO2 22 mmol/L (22-29) 08/03/19 02:15 VBG O2 Saturation 79 % (70-80) 08/03/19 02:15 VBG Base Excess -3.7 mmol/L (-3-3) L 08/03/19 02:15 Sodium 135 mmol/L (136-145) L 08/04/19 06:45 Potassium 5.0 mmol/L (3.5-5.1) 08/04/19 06:45 Chloride 104 mmol/L (98-107) 08/04/19 06:45 Carbon Dioxide 21.3 mmol/L (21.0-32.0) 08/04/19 06:45 Anion Gap 9.7 mmol/L (3-11) 08/04/19 06:45 BUN 47 mg/dL (7-18) H 08/04/19 06:45 Creatinine 2.55 mg/dL (0.70-1.30) H 08/04/19 06:45 Estimated GFR/1.73 m2 25.38 (mL/min/1.73m2) 08/04/19 06:45 Glucose 409 mg/dL (74-106) H 08/04/19 12:10 Lactate 0.7 mmol/L (0.6-1.4) 08/03/19 06:55 Calcium 8.5 mg/dL (8.5-10.1) 08/04/19 06:45 Magnesium 1.4 mg/dL (1.8-2.4) L 08/04/19 06:45 Total Bilirubin 0.5 mg/dL (0.2-1.0) 08/03/19 02:15 AST 16 U/L (15-37) 08/03/19 02:15 ALT 23 U/L (16-63) 08/03/19 02:15 Alkaline Phosphatase 159 U/L (46-116) H 08/03/19 02:15 Total Protein 7.2 g/dL (6.4-8.2) 08/03/19 02:15 Albumin 2.9 g/dL (3.4-5.0) L 08/03/19 02:15 Procalcitonin 0.1 ng/mL 08/03/19 02:15 TSH 1.41 uIU/mL (0.36-3.74) 08/03/19 02:15 Urine Color Yellow (Yellow) 08/03/19 08:50 Urine Clarity Clear (Clear) 08/03/19 08:50 Urine pH 5.5 (5-8) 08/03/19 08:50 Ur Specific [place] 1.015 (1.005-1.025) 08/03/19 08:50 Urine Protein 100 mg/dL (Negative) H 08/03/19 08:50 Urine Ketones Negative mg/dL (Negative) 08/03/19 08:50 Urine Blood Negative (Negative) 08/03/19 08:50 Urine Nitrite Negative (Negative) 08/03/19 08:50 Urine Bilirubin Negative (Negative) 08/03/19 08:50 Urine Urobilinogen 0.2 EU/dL (Up TO 0.2) 08/03/19 08:50 Ur Leukocyte Esterase Negative (Negative) 08/03/19 08:50 Urine RBC 3-5 HPF (0-2) H 08/03/19 08:50 Urine WBC 5-10 HPF (0-5) 08/03/19 08:50 Ur Epithelial Cells Few HPF (Negative) 08/03/19 08:50 Urine Crystals Other HPF (Negative) 08/03/19 08:50 Urine Bacteria Negative HPF (Negative) 08/03/19 08:50 Urine Casts 0-2 coarse granular LPF (Negative) 08/03/19 08:50 Urine Mucus Negative (Negative) 08/03/19 08:50 Ur Culture Indicated? Yes 08/03/19 08:50 Urine Glucose Negative mg/dL (Negative) 08/03/19 08:50
[2019-08-04 17:26] LABS: Glucose 414 mg/dL (74-106)
--- NOTE | 2019-08-04 17:41 | PDOC.CMPRO ---
Care Management Progress Note S/O: Reuben continues to be closely monitored, and his medications adjusted, and remains on IV ABX at this time. Per RNCC, he continues to present with high glucose numbers above 400 throughout the day. Reuben remains pleasant in interaction. CM continues to follow. A: 64 year old male admitted 08/03/19 with Pneumonia, Hyperkalemia, ANSELMO, Wenckebach AV Block P: Reuben continues to be closely monitored at this time. Anticipate he will discharge home with resumption of supports. CM continues to follow.
[2019-08-04] MEDS: Atorvastatin 20 MG TAB PO (20:02)
[2019-08-04 21:48] LABS: Glucose 381 mg/dL (74-106)
[2019-08-05] VITALS (7 sets, daily range): BP systolic 173–188; BP diastolic 73–85; PULSE 67–78; RESP 16–22; TEMP 36.5–37.1; O2SAT 95–97
[2019-08-05] MEDS: DOXYCYCLINE 100 MG in Normal Saline 100 ML IVPB ×2 (04:50→17:03)
[2019-08-05] MEDS: Normal Saline Flush 10 ML SYR IVP (06:18)
[2019-08-05] MEDS: Hydrocortisone SOD SUC. 100 MG VIAL 50 MG IVP (06:18)
[2019-08-05] MEDS: Albuterol/Ipratropium 3 ML UPD VIAL UPD (06:18)
[2019-08-05] MEDS: Normal Saline 1,000 ML 150 ML IV ×3 (06:18→22:58)
[2019-08-05 07:29] LABS: Anion Gap 11.7 mmol/L (3-11); BUN 46 mg/dL (7-18); CO2 20.3 mmol/L (21.0-32.0); Calcium 8.9 mg/dL (8.5-10.1); Chloride 107 mmol/L (98-107); Glucose 332 mg/dL (74-106); Magnesium 1.7 mg/dL (1.8-2.4); Potassium 4.6 mmol/L (3.5-5.1); Sodium 139 mmol/L (136-145)
[2019-08-05] MEDS: Omeprazole 20 MG CAPCR 40 MG PO (07:37)
[2019-08-05] MEDS: Heparin 5,000 UNITS/ML VIAL 5000 UNITS SC ×2 (07:37→15:51)
[2019-08-05] MEDS: Insulin Aspart 300 UNITS/3 ML PEN SC ×4 (07:57→21:47)
[2019-08-05] MEDS: Tiotropium/Olodaterol 10 PUFF INHALER IH (09:08)
--- NOTE | 2019-08-05 09:33 | PDOC.CMPRO ---
Care Management Progress Note S/O: Reuben continues to be closely monitored, and his medications adjusted, and remains on IV ABX at this time. Reuben remains pleasant in interaction. CM continues to follow. A: 64 year old male admitted 08/03/19 with Pneumonia, Hyperkalemia, ANSELMO, Wenckebach AV Block P: Reuben continues to be closely monitored at this time. Anticipate he will discharge home with resumption of supports and follow up with his community providers. CM continues to follow.
[2019-08-05] MEDS: Cholecalciferol (Vitamin D3) 1,000 UNIT TAB 2000 UNITS PO (09:39)
[2019-08-05] MEDS: guaiFENesin 600 MG TABCR PO ×2 (09:39→19:50)
[2019-08-05] MEDS: Aspirin E.C. 81 MG TABEC PO (09:39)
[2019-08-05] MEDS: Tacrolimus 0.5 MG CAP 1 MG PO (09:39)
[2019-08-05] MEDS: Primidone 50 MG TAB 25 MG PO ×2 (09:40→19:49)
[2019-08-05] MEDS: Multivitamin TAB 1 TAB PO (09:41)
[2019-08-05] MEDS: Folic Acid 1 MG TAB PO (09:41)
[2019-08-05] MEDS: Montelukast 10 MG TAB PO (09:41)
[2019-08-05] MEDS: Gabapentin 400 MG CAP PO ×3 (09:41→19:50)
--- NOTE | 2019-08-05 13:38 | W.PM.PROGNOT ---
Date of Service Date of service: 08/05/19 Time of Service: 13:38 Assessment and Plan Assessment and plan (1) Left lower lobe pneumonia: Status: Acute Assessment and plan: Continue broad-spectrum antibiotics including aztreonam and doxycycline. Sputum is growing Staph Aureus. Procalcitonin level and blood lactate level did not suggest significant systemic bacterial infection. Will stop aztreonam after today given his improvement and just continue doxycycline for another 2 days. Continue aerosolized bronchodilators. Transition to oral steroids. You may be able to go home tomorrow. Qualifiers: Pneumonia type: due to unspecified organism Qualified Code(s): J18.9 - Pneumonia, unspecified organism (2) Hyperkalemia: Status: Resolved Assessment and plan: Patient was initially acutely treated appropriately with insulin and calcium chloride given his hyperacute T wave changes and new onset Wenckebach block, then recieved kayexalate. K+ stable again this morning. Follow. Magnesium replaced again. (3) Acute kidney injury superimposed on chronic kidney disease: Status: Acute Assessment and plan: Improved again and now back at baseline creatinine and low 2s. Nephrology expects to get worse halfway as grafted kidney fails. continue CellCept and Prograf. Anemia of CKD also noted. Follow up as outpatient. 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 Wenckebach resolved on repeat EKG, but still first-degree block. He is on primidone for his tremor. Will continue off propanolol. (5) Uncontrolled insulin dependent diabetes mellitus: Status: Acute Assessment and plan: Blood sugars still in 400s. His liraglutide has been restarted. He is on steroids, which will be gradually tapered. I will again conservatively increase levemir to 40 (was previously 60 units but only got 25 units last night). (6) Hypertension: Status: Chronic Assessment and plan: In light of his hyperkalemia continue to withhold his losartan indefinitely. We are holding his propranolol as above. Start amlodipine at this is much easier to adhere to than something like hydralazine. Qualifiers: Hypertension type: essential hypertension Qualified Code(s): I10 - Essential (primary) hypertension Subjective Subjective Patient reports: no new complaints, feels better, tolerating liquids well, tolerating a regular diet and voiding w/o difficulty; denies diarrhea, nausea and vomiting Interval history since last seen: 24 hr: ISS increased to moderate. Detemir increased from 20-25 units Feels well. No fever, always feels warm. Breathing is better. Exam Narrative Exam Narrative: Sitting up comfortably in chair eating, A&O, NAD. HEENT: MMM Lungs reveal some mild coarse rhonchi at the left lung base but otherwise clear. Heart is regular in rhythm with some ectopic and/or skipped beats. No appreciable murmur or rub Abdomen is soft and nontender, no palpable masses Lower extremities he is status post bilateral BKA, stumps benign, no edema Objective Objective Clinical Data: Abnormal lab results 08/04/19 08/04/19 08/05/19 Range/Units 17:10 21:32 06:57 Carbon Dioxide 20.3 L (21.0-32.0) mmol/L Anion Gap 11.7 H (3-11) mmol/L BUN 46 H (7-18) mg/dL Creatinine 2.20 H (0.70-1.30) mg/dL Glucose 414 H 381 H 332 H (74-106) mg/dL Magnesium 1.7 L (1.8-2.4) mg/dL Vital Signs Temperature 36.8 C 08/05/19 11:15 Temperature Source Tympanic 08/05/19 11:15 Pulse 67 08/05/19 11:15 Pulse Rhythm Irregular 08/05/19 07:49 Pulse 65 08/03/19 05:01 Respiratory Rate 18 08/05/19 11:15 Respiratory Effort Non-Labored 08/05/19 07:49 Respiratory Depth Normal 08/05/19 07:49 Respiratory Pattern Normal 08/05/19 07:49 Blood Pressure 178/77 H 08/05/19 11:15 Blood Pressure Mean 65 08/03/19 05:01 Pulse Oximetry 97 08/05/19 11:15 Oxygen Delivery Method Room Air 08/05/19 11:15 Oxygen Flow Rate 0 08/05/19 11:15 Pain Level 0 08/05/19 11:15 Intake & Output 08/04/19 08/05/19 08/05/19 23:59 11:59 23:59 Intake Total 1950 / 4750 1100 / 1200 100 / 1200 Output Total 1575 / 3150 1275 / 1275 Balance 375 / 1600 -175 / -75 100 / -75 Weight 145.8 kg Intake: IV 1350 / 3550 1100 / 1200 100 / 1200 Oral 600 / 1200 Output: Urine 1575 / 3150 1275 / 1275 Other: Urine Color Yellow Yellow Urine Appearance Clear Clear Urine Odor Normal Normal Voiding Methods Urinal Urinal Laboratory Results WBC 8.38 k/cumm (4.4-10.8) 08/04/19 06:45 RBC 3.09 m/cumm (4.50-6.00) L 08/04/19 06:45 Hgb 9.1 g/dL (13.5-17.5) L 08/04/19 06:45 Hct 30.2 % (40.0-50.0) L 08/04/19 06:45 MCV 97.7 fL (80-95) H 08/04/19 06:45 MCH 29.4 pg (27.0-33.0) 08/04/19 06:45 MCHC 30.1 g/dL (32.0-36.0) L 08/04/19 06:45 RDW 13.8 % (11.8-14.1) 08/04/19 06:45 Plt Count 210 x1000/uL (130-400) 08/04/19 06:45 MPV 8.5 fL (8.0-11.0) 08/04/19 06:45 Immature Gran % 0.1 % 08/04/19 06:45 Neutrophils % 70.4 08/04/19 06:45 Lymphocytes % 20.8 08/04/19 06:45 Monocytes % 7.9 08/04/19 06:45 Eosinophils % 0.6 08/04/19 06:45 Basophils % 0.2 08/04/19 06:45 Absolute Neutrophils 5.90 k/cumm (1.2-6.7) 08/04/19 06:45 Absolute Lymphocytes 1.74 k/cumm (1.2-3.4) 08/04/19 06:45 Absolute Monocytes 0.66 k/cumm (0.11-0.7) 08/04/19 06:45 Absolute Eosinophils 0.05 k/cumm (0.0-0.7) 08/04/19 06:45 Absolute Basophils 0.02 k/cumm (0.0-0.2) 08/04/19 06:45 PT 11.3 sec (9.3-11.0) H 08/03/19 02:15 INR 1.1 (0.9-1.1) 08/03/19 02:15 APTT 28.7 sec (21.0-31.4) 08/03/19 02:15 VBG pH 7.27 (7.35-7.45) L 08/03/19 02:15 VBG pCO2 51 mm/Hg (34-47) H 08/03/19 02:15 VBG pO2 47 mm/Hg (28-44) H 08/03/19 02:15 VBG HCO3 23 mmol/L (22-28) 08/03/19 02:15 VBG Total CO2 22 mmol/L (22-29) 08/03/19 02:15 VBG O2 Saturation 79 % (70-80) 08/03/19 02:15 VBG Base Excess -3.7 mmol/L (-3-3) L 08/03/19 02:15 Sodium 139 mmol/L (136-145) 08/05/19 06:57 Potassium 4.6 mmol/L (3.5-5.1) 08/05/19 06:57 Chloride 107 mmol/L (98-107) 08/05/19 06:57 Carbon Dioxide 20.3 mmol/L (21.0-32.0) L 08/05/19 06:57 Anion Gap 11.7 mmol/L (3-11) H 08/05/19 06:57 BUN 46 mg/dL (7-18) H 08/05/19 06:57 Creatinine 2.20 mg/dL (0.70-1.30) H 08/05/19 06:57 Estimated GFR/1.73 m2 30.10 (mL/min/1.73m2) 08/05/19 06:57 Glucose 332 mg/dL (74-106) H 08/05/19 06:57 Lactate 0.7 mmol/L (0.6-1.4) 08/03/19 06:55 Calcium 8.9 mg/dL (8.5-10.1) 08/05/19 06:57 Magnesium 1.7 mg/dL (1.8-2.4) L 08/05/19 06:57 Total Bilirubin 0.5 mg/dL (0.2-1.0) 08/03/19 02:15 AST 16 U/L (15-37) 08/03/19 02:15 ALT 23 U/L (16-63) 08/03/19 02:15 Alkaline Phosphatase 159 U/L (46-116) H 08/03/19 02:15 Total Protein 7.2 g/dL (6.4-8.2) 08/03/19 02:15 Albumin 2.9 g/dL (3.4-5.0) L 08/03/19 02:15 Procalcitonin 0.1 ng/mL 08/03/19 02:15 TSH 1.41 uIU/mL (0.36-3.74) 08/03/19 02:15 Urine Color Yellow (Yellow) 08/03/19 08:50 Urine Clarity Clear (Clear) 08/03/19 08:50 Urine pH 5.5 (5-8) 08/03/19 08:50 Ur Specific [place] 1.015 (1.005-1.025) 08/03/19 08:50 Urine Protein 100 mg/dL (Negative) H 08/03/19 08:50 Urine Ketones Negative mg/dL (Negative) 08/03/19 08:50 Urine Blood Negative (Negative) 08/03/19 08:50 Urine Nitrite Negative (Negative) 08/03/19 08:50 Urine Bilirubin Negative (Negative) 08/03/19 08:50 Urine Urobilinogen 0.2 EU/dL (Up TO 0.2) 08/03/19 08:50 Ur Leukocyte Esterase Negative (Negative) 08/03/19 08:50 Urine RBC 3-5 HPF (0-2) H 08/03/19 08:50 Urine WBC 5-10 HPF (0-5) 08/03/19 08:50 Ur Epithelial Cells Few HPF (Negative) 08/03/19 08:50 Urine Crystals Other HPF (Negative) 08/03/19 08:50 Urine Bacteria Negative HPF (Negative) 08/03/19 08:50 Urine Casts 0-2 coarse granular LPF (Negative) 08/03/19 08:50 Urine Mucus Negative (Negative) 01/10/20 08:50 Ur Culture Indicated? Yes 08/03/19 08:50 Urine Glucose Negative mg/dL (Negative) 08/03/19 08:50
[2019-08-05] MEDS: predniSONE 20 MG TAB 60 MG PO (15:04)
[2019-08-05] MEDS: MAGNESIUM SULFATE 1 GM/100 ML BAG IVPB (15:06)
[2019-08-05] MEDS: amLODIPine 5 MG TAB PO (15:51)
[2019-08-05] MEDS: Docusate Sodium 100 MG CAP PO (16:03)
[2019-08-05] MEDS: Polyethylene Glycol 3350 17 GM PACKET PO (16:03)
[2019-08-05] MEDS: Atorvastatin 20 MG TAB PO (19:50)
[2019-08-06] MEDS: Heparin 5,000 UNITS/ML VIAL 5000 UNITS SC ×2 (00:18→08:30)
[2019-08-06 03:54] VITALS: BP 177/78; PULSE 67; RESP 20; TEMP 36.2; O2SAT 97
[2019-08-06] MEDS: DOXYCYCLINE 100 MG in Normal Saline 100 ML IVPB (03:55)
[2019-08-06] MEDS: Normal Saline 1,000 ML 150 ML IV (06:57)
[2019-08-06 07:03] VITALS: PULSE 58
[2019-08-06 07:40] VITALS: BP 170/74; PULSE 63; RESP 18; TEMP 36.5; O2SAT 98
[2019-08-06] MEDS: Primidone 50 MG TAB 25 MG PO (08:30)
[2019-08-06] MEDS: Aspirin E.C. 81 MG TABEC PO (08:30)
[2019-08-06] MEDS: Omeprazole 20 MG CAPCR 40 MG PO (08:30)
[2019-08-06] MEDS: Cholecalciferol (Vitamin D3) 1,000 UNIT TAB 2000 UNITS PO (08:30)
[2019-08-06] MEDS: Multivitamin TAB 1 TAB PO (08:30)
[2019-08-06] MEDS: Folic Acid 1 MG TAB PO (08:31)
[2019-08-06] MEDS: Montelukast 10 MG TAB PO (08:31)
[2019-08-06] MEDS: Tacrolimus 0.5 MG CAP 1 MG PO (08:31)
[2019-08-06] MEDS: guaiFENesin 600 MG TABCR PO (08:31)
[2019-08-06] MEDS: Gabapentin 400 MG CAP PO (08:31)
[2019-08-06] MEDS: predniSONE 20 MG TAB 60 MG PO (08:31)
[2019-08-06] MEDS: amLODIPine 5 MG TAB PO (08:31)
[2019-08-06] MEDS: Insulin Aspart 300 UNITS/3 ML PEN SC (08:32)
[2019-08-06 08:58] LABS: Streptococcus Pneumoniae Ag, U Negative (Negative)
[2019-08-06 10:02] VITALS: O2SAT 98
[2019-08-06] MEDS: Tiotropium/Olodaterol 10 PUFF INHALER IH (10:06)
[2019-08-06 10:24] VITALS: PULSE 62
--- NOTE | 2019-08-06 12:43 | DSE_ITS ---
Date of service: 08/06/19 Time of Service: 10:43 DS: Diagnosis Discharge Diagnosis (1) Left lower lobe pneumonia: Status: Acute (2) Hyperkalemia: Status: Resolved (3) Acute kidney injury superimposed on chronic kidney disease: Status: Acute (4) Wenckebach second degree AV block: Status: Acute (5) Uncontrolled insulin dependent diabetes mellitus: Status: Acute (6) Hypertension: Status: Chronic Discharge Plan Disposition Patient Disposition: HOME Condition: Stable Discharge Details Chief Complaint: RespSymp Clinical Impression: Chronic kidney disease, Acute hyperkalemia, Acute kidney injury, Mobitz type 1 second degree AV block, Pneumonia, Immunosuppressed status Reason For Visit: PNEUMONIA,HYPERKALEMIA,ANSELMO,WENCKEBACH AV BLOCK Admit Date/Time: 08/03/19 04:22 Admit Provider: Cheikh Quiroz Attending Provider: Cheikh Quiroz Primary Care Provider: Violetta Sanford ED Provider: Maciej Teran Hospital Course Hospital Course: 64-year-old man with history of chronic kidney disease status post renal transplant, poorly controlled type 2 diabetes on insulin, hypertension, and bilateral BKA who presents did with cough and dyspnea and fever and diagnosed with left lower lobe pneumonia. Patient initially started on vancomycin and aztreonam as well as doxycycline because of his immune suppression and allergies, and he continued to respond well to the aztreonam and doxycycline. Blood cultures were negative but sputum did grow MSSA. He was discharged after 72 hours of IV aztreonam with 2 more days of oral doxycycline. He was placed on stress dose IV steroids given history of asthma and concern he was on chronic steroids, but this was not the case. He was transitioned to oral prednisone for 2 more days at the time of discharge. His symptoms were also significant for globus sensation, and he did have a CT of his neck without contrast which showed narrowing of his narrow pharyngeal airways due to prominent soft palate and posterior nasopharyngeal soft tissues. Swallow evaluation was initially placed and pending at the time of discharge, but his swallow improved. The chest x-ray showed pneumonia as above. Patient had hyperkalemia noted at presentation. This was associated with new second-degree type II heart block. Hyperkalemia was treated with insulin and fluids and Kayexalate. Losartan was stopped after discussion with Dr. Garnett the transplant mounting inspector. His potassium was stable after this and was 4.6 the day prior to discharge. Creatinine was 2.66 on admission, and went down to 2.2 on day prior to discharge. He did get IV fluids. His magnesium was repleted IV. The second-degree heart block resolved on repeat EKG after potassium was normal, but he was continued off of propanolol due to the persistent first-degree heart block. Patient's blood pressure was elevated after stopping his losartan and propanolol. He was started on 5 mg of amlodipine. His tremor was not noticeably worse but is can be followed as outpatient. Patient had an episode of hypoglycemia after getting regular insulin to treat his hyperkalemia. His home insulin doses were cut, resulting in hyperglycemia. He was discharged on his home insulin regimen. Home Meds and New Rx's Prescriptions: New polyethylene glycol 3350 17 gram Powder In Packet 17 g PO DAILY PRN PRN (Reason: Constipation) Qty: 1 RF: 0 prednisone 20 mg Tablet 60 mg PO DAILY 2 Days Qty: 6 RF: 0 amlodipine 5 mg Tablet 5 mg PO DAILY Qty: 30 RF: 2 doxycycline hyclate 100 mg capsule 100 mg PO DAILY Qty: 7 RF: 0 Continued folic acid 1 mg tablet 1 mg PO DAILY RF: 0 Humalog KwikPen Insulin 100 unit/mL insulin pen See Rx Instructions SC BID RF: 0 glucagon HCl 1 mg recon soln 1 mg IM ONCE PRNRF: 0 aspirin [Aspirin Low Dose] 81 MG tablet,delayed release (DR/EC) 81 mg PO DAILY RF: 0 omeprazole [Prilosec] 40 MG capsule,delayed release(DR/EC) 40 mg PO DAILY RF: 0 montelukast 10 MG tablet 10 mg PO DAILY RF: 0 multivitamin [Daily Multi-Vitamin] 1 EACH tablet 1 ea PO DAILY RF: 0 cholecalciferol (vitamin D3) [Vitamin D3] 2,000 UNIT tablet 2,000 unit PO DAILY RF: 0 fluticasone propionate 16 GM spray,suspension 2 spry NS DAILY PRNRF: 0 albuterol sulfate [Ventolin HFA] 90 mcg/actuation Hfa Aerosol Inhaler 90 mcg Inhalation 4-6XD RF: 0 mycophenolate mofetil [CellCept] 250 mg Capsule 500 mg PO BID RF: 0 ipratropium-albuterol 0.5 mg-3 mg(2.5 mg base)/3 mL Solution For Nebulization 3 ml UPD Q6H Qty: 0 RF: 0 gabapentin 300 mg Capsule 600 mg PO TID Qty: 0 RF: 0 tacrolimus 0.5 mg Capsule 1 mg PO DAILY Qty: 0 RF: 0 Novolog Flexpen U-100 Insulin 100 unit/mL Insulin Pen 0 units subcut 0800,1200,1700 Qty: 0 RF: 0 atorvastatin [Lipitor] 20 MG tablet 1 tab PO DAILY RF: 0 primidone 50 mg Tablet 50 mg PO BID RF: 0 Victoza 2-Nigel 0.6 mg/0.1 mL (18 mg/3 mL) Pen Injector 1.8 mg SUBCUT QDAY RF: 0 Stiolto Respimat 2.5-2.5 mcg/actuation Mist 2 puff inhalation DAILY RF: 0 Levemir FlexTouch U-100 Insuln 100 unit/mL (3 mL) insulin pen 55 units subcut HS RF: 0 Discontinued propranolol [Inderal LA] 160 MG capsule,extended release 24 hr 160 mg PO TID RF: 0 losartan 50 mg Tablet 75 mg PO DAILY RF: 0 Discharge Instructions Instructions: Hyperkalemia (DC), Community Acquired Pneumonia (DC) Additional Instructions: 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 Stand Alone Forms: Nursing Discharge Form Referrals: Violetta Sanford MD [Primary Care Provider] - 08/09/19 11:20 am Activity:: Activity as Tolerated Equipment/Supplies:: No Equipment Needed Diet:: Renal/Limited Potassium Discharge Orders Discharge Orders: Discharge Order (Routine); Ordered 08/06/19 Ordered By: Rayo Warner Discharge Data Discharge Date/Time-TO BE ENTERED AT DEPARTURE: 08/06/19 11:55 DS: Summary Status at Discharge Functional status at discharge: independent ambulation (with prostheses) Overall status at discharge: patient is back to baseline Mental Status: mental status grossly normal Speech and Movement: speech and movement normal Mood: congruent mood Affect: normal affect Exam Narrative Exam Narrative: Sitting up comfortably in chair eating, A&O, NAD. HEENT: MMM Lungs reveal some mild coarse rhonchi at the lung bases but otherwise clear. Heart is regular in rhythm with some ectopic and/or skipped beats. No appreciable murmur or rub Abdomen is soft and nontender, no palpable masses Lower extremities he is status post bilateral BKA, stumps benign, no edema Psych Mental Status: mental status grossly normal Speech and Movement: speech and movement normal Mood: congruent mood Affect: normal affect DS: Data Vitals/I&O Vitals and I&O: Vital Signs Temperature 36.5 C 08/06/19 07:40 Temperature Source Tympanic 08/06/19 07:40 Pulse 62 08/06/19 10:24 Pulse Rhythm Regular 08/06/19 10:15 Pulse 65 08/03/19 05:01 Respiratory Rate 18 08/06/19 07:40 Respiratory Effort 08/06/19 10:15 Respiratory Depth Normal 08/06/19 10:15 Respiratory Pattern Normal 08/06/19 10:15 Blood Pressure 170/74 H 08/06/19 07:40 Blood Pressure Mean 65 08/03/19 05:01 Pulse Oximetry 98 08/06/19 10:02 Oxygen Delivery Method Room Air 08/06/19 10:02 Oxygen Flow Rate 0 08/06/19 10:02 Pain Level 0 08/06/19 07:40 Comment 08/05/19 19:47 Intake & Output 08/05/19 08/06/19 08/06/19 23:59 11:59 23:59 Intake Total 3040 / 4480 1775 / 1775 Output Total 450 / 1725 900 / 900 Balance 2590 / 2755 875 / 875 Weight 146.2 kg Intake: IV 2300 / 3500 1100 / 1100 Oral 740 / 980 675 / 675 Output: Urine 450 / 1725 900 / 900 Other: Urine Color Yellow Yellow Urine Appearance Clear Clear Urine Odor Normal Stool Size Large Voiding Methods Toilet Urinal Data Completed and Pending Labs on day of discharge: Labs from last 24 hours 08/03/19 08/03/19 08:50 02:15 Tacrolimus 2.8 Ur Strep pneumoniae Ag Negative Preliminary micro results at discharge 08/03/19 02:50 Blood Culture - Preliminary Blood NO GROWTH 72 HOURS 08/03/19 02:15 Blood Culture - Preliminary Blood NO GROWTH 72 HOURS PFSH Social History Smoking/Tobacco Use Status: Former Tobacco Use Alcohol Intake: never Drug use: Never Do you feel safe at home: Yes Do you feel safe in your relationship?: Yes Additional Social history: pt interacts well with family at bedside
--- NOTE | 2019-08-06 14:25 | W.INDIABCONS ---
Date of service: 08/06/19 Time of Service: 14:25 Diabetes Inpatient Consult DESCRIPTION/ASSESSMENT: Appreciate diabetes consult for Leroy Torres who is hospitalized with pneumonia and worsening kidney disease GFR 30. A1c increased to 9.1; last at 7.7. Anibal is well known to outpatient DSME. Manages diabetes with 55u determir, lispro and novolog according to his home medication list. Here he received 40u Levemir, moderate insulin correction. He also received 60mg prednisone affecting his blood sugars. He was eating 40-60grams carbohydrate. Blood sugars here [phone]. Reuben expresses frustration that he does a better job managing his diabetes than we do here. Reuben is aware of self management principles and follows them as best he can, although he is physically inactive with amputations and has had some frustrations in the recent past. He has had a Dexcom G5 but when he went to switch it to the G6 he has not been able to obtain it. His was not available to be included in the discussion. INTERVENTION: Discussion centered on obtaining Dexcom G6. Did not address blood sugars as he does not have his recordings and management schedule here. Briefly discussed kidney failure and suggested improved glycemic control is one of the prevention tools for kidney failure. PLAN: I will follow up with PCP and insurance companies re: Dexcom G6. Will f/u with him regarding self management at home. Time Spent in Nutritional Counseling and Treatment: 10 minutes face to face
--- NOTE | 2019-08-06 16:49 | PDOC.CMDIS ---
- If Service Date Differs Date of service: 08/06/19 Time of Service: 16:49 LACE Index Scoring Tool - Questions: Length of Stay (in days): 4 - 6 Acuity (Admit via E.D.?): Yes Comorbidities: Diabetes w/o Complication, Congestive Heart Failure, Liver or Renal Disease E.D. Visits: 3 - Answers: Total Score: 15 Risk of Readmission: High Risk Care Management Discharge Reason for Hospitalization: Pneumonia, Hyperkalemia, ANSELMO, Wenckebach AV Block Discharge Plan: Reuben will return home with no additional services at this time. His , Linda will drive him home via private vehicle when ready. He will follow up with his PCP, as recommended. He is agreeable to the plan. Patient/Family Education Needs: Review discharge instructions regarding medications, discussion of self care needs including Ask Me Three
== END 2019-08-06 11:55 | disposition home or self-care (01) | DRG 178 ==
LOC: ER 04:42 → MS 05:50
PROVIDERS: General Practice; Internal Medicine; Admitting Provider Internal Medicine; Emergency Provider Student in an Organized Health Care Education/Training Program; PCP Family Medicine; Visit Provider Family Medicine
DX: J15.211 Pneumonia due to Methicillin susceptible Staphylococcus aureus (principal); Z94.0 Kidney transplant status; N17.9 Acute kidney failure, unspecified; E87.5 Hyperkalemia; E86.0 Dehydration; I44.1 Atrioventricular block, second degree; T44.7X5A Adverse effect of beta-adrenoreceptor antagonists, initial encounter; E11.65 Type 2 diabetes mellitus with hyperglycemia; Z79.52 Long term (current) use of systemic steroids; I44.0 Atrioventricular block, first degree; R25.1 Tremor, unspecified; E11.649 Type 2 diabetes mellitus with hypoglycemia without coma; T38.3X5A Adverse effect of insulin and oral hypoglycemic [antidiabetic] drugs, initial encounter; Z79.4 Long term (current) use of insulin; E11.22 Type 2 diabetes mellitus with diabetic chronic kidney disease; N18.9 Chronic kidney disease, unspecified; I12.9 Hypertensive chronic kidney disease with stage 1 through stage 4 chronic kidney disease, or unspecified chronic kidney disease; F45.8 Other somatoform disorders; J45.909 Unspecified asthma, uncomplicated; Z89.512 Acquired absence of left leg below knee; Z89.511 Acquired absence of right leg below knee; M26.89 Other dentofacial anomalies; Z79.899 Other long term (current) drug therapy; Z87.891 Personal history of nicotine dependence; E66.01 Morbid (severe) obesity due to excess calories; Z68.39 Body mass index [BMI] 39.0-39.9, adult
CPT/HCPCS: 36415; 36416; 80048; 80053; 82805; 82947; 82962; 84145; 87040; 87077; 87449; 93005; 94640; 96361; 96365; 96368; 96375; 99223; 99232; 99238; 99285; NC; 70490; 71046; 80197; 81003; 81015; 83605; 83735; 84443; 85025; 85610; 85730; 87070; 87086; 87186; 87205; 87450; 93010; 94667; J0610; J1644; J1720; J3475; J3490; J7512; J7517; J7613; J7620

== ENCOUNTER → 2019-08-09 12:50 | Outpatient (REF) | payer OTHER, SELFPAY ==
[2019-08-09 18:35] LABS: COMMENT (LAB VIEW ONLY) 39.09 mg/dL
== END ==
LOC: NCHCN 12:50
PROVIDERS: PCP Family Medicine; Visit Provider Family Medicine
DX: E11.9 Type 2 diabetes mellitus without complications (principal)
CPT/HCPCS: 82043; 82570

== ENCOUNTER 2019-08-13 01:17 | Outpatient (CLI) | payer OTHER, SELFPAY ==
[2019-08-13 13:03] LABS: HCT 35.1 % (40.0-50.0); HGB 10.8 g/dL (13.5-17.5); Mean Corp. HGB Concentration 30.8 g/dL (32.0-36.0); Mean Corpuscular Hemoglobin 29.7 pg (27.0-33.0); Mean Corpuscular Volume 96.4 fL (80-95); Mean Platelet Volume 8.8 fL (8.0-11.0); Platelet Count 231 x1000/uL (130-400); RBC 3.64 m/cumm (4.50-6.00); RBC Distribution Width 14.4 % (11.8-14.1); White Blood Cell Count 7.71 k/cumm (4.4-10.8)
[2019-08-13 13:19] LABS: ALT 19 U/L (16-63); AST 13 U/L (15-37); Albumin 2.5 g/dL (3.4-5.0); Alkaline Phosphatase 106 U/L (46-116); Anion Gap 9.4 mmol/L (3-11); BUN 39 mg/dL (7-18); Bilirubin, Total 0.4 mg/dL (0.2-1.0); CO2 24.6 mmol/L (21.0-32.0); CREATININE 2.04 mg/dL (0.70-1.30); Calcium 8.6 mg/dL (8.5-10.1); Chloride 108 mmol/L (98-107); Estimated GFR 32.84 (mL/min/1.73m2); Glucose 222 mg/dL (74-106); Magnesium 1.4 mg/dL (1.8-2.4); Potassium 4.1 mmol/L (3.5-5.1); Sodium 142 mmol/L (136-145); Total Protein 6.6 g/dL (6.4-8.2); Uric Acid 7.4 mg/dL (3.5-7.2)
[2019-08-13 13:20] LABS: Bilirubin Negative (Negative); Blood Small (Negative); Clarity Clear (Clear); Glucose 100 mg/dL (Negative); Ketones Negative (Negative); Leukocyte Esterase Negative (Negative); Nitrite Negative (Negative); Urobilinogen 0.2 EU/dL (Up TO 0.2)
[2019-08-13 13:34] LABS: Cholesterol 114 mg/dL (<200)
[2019-08-13 13:44] LABS: Epithelial Cells Few HPF (Negative); WBC 0-2 HPF (0-5)
[2019-08-13 13:45] LABS: Bacteria Few HPF (Negative); C & S Indicated? No; Casts Negative LPF (Negative); Crystals Negative HPF (Negative); Mucus Trace (Negative)
[2019-08-13 13:56] LABS: PROTEIN 172.4 mg/dL
[2019-08-13 14:08] LABS: COMMENT (LAB VIEW ONLY) 62.95 mg/dL; Prot/Crea Ur Ratio 2.73
[2019-08-14 13:30] LABS: Tacrolimus 4.3 ng/mL (See Note)
== END 2019-08-13 01:37 ==
PROVIDERS: PCP Family Medicine; Visit Provider Internal Medicine Nephrology
DX: Z94.0 Kidney transplant status (principal); Z79.899 Other long term (current) drug therapy; I12.9 Hypertensive chronic kidney disease with stage 1 through stage 4 chronic kidney disease, or unspecified chronic kidney disease
CPT/HCPCS: 36415; 80053; 85027; 80197; 81003; 81015; 82465; 82565; 83735; 84100; 84156; 84550

== ENCOUNTER 2020-03-19 03:04 | Outpatient (CLI) | payer OTHER, SELFPAY ==
[2020-03-19 11:54] LABS: HCT 30.9 % (40.0-50.0); HGB 9.7 g/dL (13.5-17.5); MCH 29.8 pg (27.0-33.0); MCHC 31.4 % (32.0-36.0); MCV 95.1 fL (80-95); MPV 8.7 fL (8.0-11.0); Platelet Count 209 10^3/uL (130-400); RBC 3.25 10^6/uL (4.36-5.78); RDW 13.6 % (11.8-14.1); RDW-SD 46.7 fL; Reticulocyte 2.1 % (0.5-2.4); WBC 7.27 10^3/uL (4.4-10.8)
[2020-03-19 12:14] LABS: Bilirubin Negative (Negative); Blood Negative (Negative); Clarity Clear (Clear); Glucose 100 mg/dL (Negative); Ketones Negative (Negative); Leukocyte Esterase Negative (Negative); Nitrite Negative (Negative); Urobilinogen 0.2 EU/dL (Up TO 0.2)
[2020-03-19 12:16] LABS: Hemoglobin A1C 6.7 % (3.8-5.6)
[2020-03-19 12:25] LABS: PROTEIN 175.4 mg/dL
[2020-03-19 12:26] LABS: COMMENT (LAB VIEW ONLY) 53.55 mg/dL; Prot/Crea Ur Ratio 3.27
[2020-03-19 12:27] LABS: Bacteria Negative HPF (Negative); C & S Indicated? No; Casts Negative LPF (Negative); Crystals Few Amorphous HPF (Negative); Epithelial Cells Rare HPF (Negative); Mucus Negative (Negative); RBC Negative HPF (0-2); WBC 0-2 HPF (0-5)
[2020-03-19 12:34] LABS: Iron 36 ug/dL (65-175)
[2020-03-19 12:40] LABS: COMMENT (LAB VIEW ONLY) 54.56 mg/dL
[2020-03-19 13:00] LABS: ALT 31 U/L (16-63); AST 20 U/L (15-37); Albumin 2.9 g/dL (3.4-5.0); Alkaline Phosphatase 163 U/L (46-116); Anion Gap 6.9 mmol/L (3-11); BUN 36 mg/dL (7-18); Bilirubin, Total 0.3 mg/dL (0.2-1.0); CO2 23.1 mmol/L (21.0-32.0); CREATININE 2.54 mg/dL (0.70-1.30); Calcium 8.4 mg/dL (8.5-10.1); Calculated LDL 50 mg/dL (<100); Chloride 109 mmol/L (98-107); Cholesterol 107 mg/dL (<200); Ferritin 89 ng/mL (26-388); Glucose 243 mg/dL (74-106); HDL Cholesterol 27 mg/dL (40-60); Magnesium 1.6 mg/dL (1.8-2.4); Sodium 139 mmol/L (136-145); TSH 1.96 uIU/mL (0.36-3.74); Triglyceride 151 mg/dL (<150); Uric Acid 7.1 mg/dL (3.5-7.2); Vitamin B12 292 pg/mL (193-986)
[2020-03-19 13:02] LABS: Folate > 20.0 ng/mL (8.6-20.0)
[2020-03-19 13:13] LABS: PHOSPHORUS 3.3 mg/dL (2.6-4.7)
[2020-03-20 04:45] LABS: Vitamin D 25 Total 22.2 ng/ml (30-100)
[2020-03-20 08:14] LABS: Parathyroid Hormone,Intact 186 pg/mL (19-88)
[2020-03-20 10:02] LABS: Magnesium Random Urine 3.4 mg/dL (See Note)
[2020-03-20 10:04] LABS: Phosphorus Urine 29.5 mg/dL (See Note)
[2020-03-20 10:06] LABS: Calcium (Random Urine) <1.0 mg/dL (See Note)
[2020-03-24 23:54] LABS: 1,25-Dihydroxyvitamin D 16 pg/mL (18-64)
== END 2020-03-19 03:24 ==
PROVIDERS: PCP Family Medicine; Visit Provider Internal Medicine Nephrology
DX: E11.65 Type 2 diabetes mellitus with hyperglycemia (principal); Z79.4 Long term (current) use of insulin; M79.2 Neuralgia and neuritis, unspecified; G25.0 Essential tremor; E11.42 Type 2 diabetes mellitus with diabetic polyneuropathy; Z94.0 Kidney transplant status; Z79.899 Other long term (current) drug therapy; E55.9 Vitamin D deficiency, unspecified; Z48.298 Encounter for aftercare following other organ transplant
CPT/HCPCS: 36415; 80053; 80061; 82306; 83735; 85027; 80197; 81003; 81015; 82043; 82340; 82565; 82570; 82607; 82652; 82728; 82746; 83036; 83540; 83970; 84100; 84105; 84156; 84443; 84550; 85045

== ENCOUNTER → 2020-04-01 14:38 | Outpatient (REF) | payer OTHER, SELFPAY ==
[2020-04-01 15:49] LABS: HCT 32.5 % (40.0-50.0); HGB 10.3 g/dL (13.5-17.5); MCH 30.2 pg (27.0-33.0); MCHC 31.7 % (32.0-36.0); MCV 95.3 fL (80-95); MPV 8.8 fL (8.0-11.0); Platelet Count 225 10^3/uL (130-400); RBC 3.41 10^6/uL (4.36-5.78); RDW-SD 48.4 fL; WBC 7.34 10^3/uL (4.4-10.8)
[2020-04-01 16:29] LABS: Anion Gap 10.6 mmol/L (3-11); BUN 31 mg/dL (7-18); CO2 21.4 mmol/L (21.0-32.0); CREATININE 2.42 mg/dL (0.70-1.30); Calcium 8.5 mg/dL (8.5-10.1); Calculated LDL 37 mg/dL (<100); Chloride 104 mmol/L (98-107); Cholesterol 104 mg/dL (<200); Estimated GFR 26.96 (mL/min/1.73m2); Glucose 157 mg/dL (74-106); HDL Cholesterol 22 mg/dL (40-60); Potassium 4.8 mmol/L (3.5-5.1); Sodium 136 mmol/L (136-145); Triglyceride 225 mg/dL (<150)
[2020-04-01 16:36] LABS: Hemoglobin A1C 6.4 % (<5.7)
== END ==
LOC: NCHCN 14:38
PROVIDERS: PCP Family Medicine; Visit Provider Family Medicine
DX: E11.9 Type 2 diabetes mellitus without complications (principal); I10 Essential (primary) hypertension; D53.9 Nutritional anemia, unspecified; Z79.4 Long term (current) use of insulin
CPT/HCPCS: 80048; 80061; 85027; 83036

== ENCOUNTER → 2020-04-17 13:20 | Outpatient (REF) | payer OTHER, SELFPAY ==
[2020-04-17 19:38] LABS: Anion Gap 9.9 mmol/L (3-11); BUN 32 mg/dL (7-18); C-Reactive Protein 0.64 mg/dL (0.0-0.3); CO2 24.1 mmol/L (21.0-32.0); CREATININE 2.57 mg/dL (0.70-1.30); Calcium 8.8 mg/dL (8.5-10.1); Chloride 107 mmol/L (98-107); Estimated GFR 25.15 (mL/min/1.73m2); Glucose 104 mg/dL (74-106); Potassium 4.9 mmol/L (3.5-5.1); Sodium 141 mmol/L (136-145)
[2020-04-17 19:50] LABS: ESR 108 mm/hr (1-20)
[2020-04-18 22:16] LABS: PSA, Screening 2.3 ng/mL (0.0-4.5)
[2020-04-21 09:27] LABS: Cyclic Citrullinated Peptide <2.5 U/mL (<5.0)
[2020-04-21 15:08] LABS: ANA Interpretation Positive (Negative); ANA Titer Pattern 1:160 Speckled
== END ==
LOC: NCHCN 13:20
PROVIDERS: PCP Family Medicine; Visit Provider Family Medicine
DX: E11.9 Type 2 diabetes mellitus without complications (principal); I10 Essential (primary) hypertension; M79.641 Pain in right hand; M79.642 Pain in left hand; Z94.0 Kidney transplant status; Z12.5 Encounter for screening for malignant neoplasm of prostate
CPT/HCPCS: 80048; 84153; 85652; 86200; 86038; 86140

== ENCOUNTER → 2020-04-30 00:38 | Outpatient (CLI) | payer OTHER, SELFPAY ==
--- NOTE | 2020-04-30 | DI.DEXA_ITS ---
EXAM: XR DEXA BONE DENSITY W/WO RAMEZ CLINICAL HISTORY: KIDNEY TRANSPLANTATION HX, Z94.0 TECHNIQUE: COMPARISON: No exams were available for comparison FINDINGS: DEXA scan was performed according the usual protocol. Findings for left hip scanning are T-score -1. 7 with left femoral neck T-score -1.7. Findings for lumbar spine scanning are T-score 0.3. Findings for left forearm scanning are T score -2.4. Lateral vertebral scanogram was not performed at the patient's request. IMPRESSION: Findings consistent with osteopenia according to the WHO criteria. RADIATION DOSE DELIVERED: Total DLP
--- NOTE | 2020-04-30 | DI.RAD_ITS ---
EXAM: XR HAND LT COMPLETE CLINICAL HISTORY: HAND PAIN, M79.643, RAMONA POSITIVE, R79.89 TECHNIQUE: COMPARISON: CR XR HAND RT COMPLETE from 04/30/2020 FINDINGS: Three views were obtained. The bones are normally mineralized. Cartilaginous joint spaces appear fa irly well maintained. Minimal marginal osteophyte formation at the IP joint of the thumb. No other significant bony abnormality seen. IMPRESSION: Minimal degenerative change. Essentially negative examination for age RADIATION DOSE DELIVERED: Total DLP
--- NOTE | 2020-04-30 | DI.RAD_ITS ---
EXAM: XR HAND RT COMPLETE CLINICAL HISTORY: HAND PAIN, M79.643, RAMONA POSITIVE, R79.89 TECHNIQUE: COMPARISON: CR RT WRIST COMPLETE + NAVICULAR from 11/12/2017 FINDINGS: Three views were obtained. The bones appear normally mineralized. Cartilaginous joint spaces are fa irly well maintained throughout for age. No erosive or destructive process. No significant bony abn ormality seen. Slight marginal osteophyte formation of the bones at the 5th MCP joint. IMPRESSION: Negative examination of the hand. Question minimal focal degenerative change 5th MCP joint. RADIATION DOSE DELIVERED: Total DLP
== END ==
PROVIDERS: PCP Family Medicine; Visit Provider Family Medicine
DX: M79.641 Pain in right hand (principal); M25.741 Osteophyte, right hand; M19.042 Primary osteoarthritis, left hand; M85.89 Other specified disorders of bone density and structure, multiple sites
CPT/HCPCS: 77080; 73130

== ENCOUNTER 2020-08-16 18:18 | Emergency (ER) | payer MEDICARE, OTHER, SELFPAY ==
[2020-08-16] VITALS (15 sets, daily range): BP systolic 149–179; BP diastolic 56–64; PULSE 51–90; RESP 9–18; TEMP 37.1–37.2; O2SAT 97–100
--- NOTE | 2020-08-16 18:36 | ED.GENADUL_ITS ---
Discharge Plan Disposition Patient Disposition: HOME Condition: Stable Discharge Details Clinical Impression: Generalized weakness Primary Care Provider: Violetta Sanford ED Provider: Cheikh Camp Home Meds and New Rx's Prescriptions: Continued folic acid 1 mg tablet 1 mg PO DAILY RF: 0 insulin lispro [Humalog KwikPen Insulin] 100 unit/mL insulin pen See Rx Instructions SC BID RF: 0 glucagon HCl 1 mg recon soln 1 mg IM ONCE PRNRF: 0 aspirin [Aspirin Low Dose] 81 MG tablet,delayed release (DR/EC) 81 mg PO DAILY RF: 0 omeprazole [Prilosec] 40 MG capsule,delayed release(DR/EC) 40 mg PO DAILY RF: 0 montelukast 10 MG tablet 10 mg PO DAILY RF: 0 multivitamin [Daily Multi-Vitamin] 1 EACH tablet 1 ea PO DAILY RF: 0 cholecalciferol (vitamin D3) [Vitamin D3] 2,000 UNIT tablet 2,000 unit PO DAILY RF: 0 fluticasone propionate 16 GM spray,suspension 2 spry NS DAILY PRNRF: 0 albuterol sulfate [Ventolin HFA] 90 mcg/actuation Hfa Aerosol Inhaler 90 mcg Inhalation 4-6XD RF: 0 mycophenolate mofetil [CellCept] 250 mg Capsule 500 mg PO BID RF: 0 ipratropium-albuterol 0.5 mg-3 mg(2.5 mg base)/3 mL Solution For Nebulization 3 ml UPD Q6H Qty: 0 RF: 0 gabapentin 300 mg Capsule 600 mg PO TID Qty: 0 RF: 0 tacrolimus 0.5 mg Capsule 1 mg PO DAILY Qty: 0 RF: 0 insulin aspart U-100 [Novolog Flexpen U-100 Insulin] 100 unit/mL Insulin Pen 0 units subcut 0800,1200,1700 Qty: 0 RF: 0 atorvastatin [Lipitor] 20 MG tablet 1 tab PO DAILY RF: 0 primidone 50 mg Tablet 50 mg PO BID RF: 0 Victoza 2-Nigel 0.6 mg/0.1 mL (18 mg/3 mL) Pen Injector 1.8 mg SUBCUT QDAY RF: 0 Stiolto Respimat 2.5-2.5 mcg/actuation Mist 2 puff inhalation DAILY RF: 0 Levemir FlexTouch U-100 Insuln 100 unit/mL (3 mL) insulin pen 55 units subcut BID RF: 0 polyethylene glycol 3350 17 gram Powder In Packet 17 g PO DAILY PRN PRN (Reason: Constipation) Qty: 1 RF: 0 amlodipine 5 mg Tablet 5 mg PO DAILY Qty: 30 RF: 2 Discharge Instructions Instructions: Weakness (ED) Additional Instructions: At this time your laboratory values do not reveal any obvious emergent process. You did look a little dry compared to your baseline. You were carefully hydrated here in the ER in a manner not to aggravate your CHF. Please continue your medications as directed. Please be sure to drink adequate fluids. Zofran as directed. Please watch for new or worsening symptoms and return to the ER for any concerns. I would like you to reach out to your primary care provider on Tuesday for prompt outpatient reevaluation. Discharge Data Discharge Date/Time-TO BE ENTERED AT DEPARTURE: 08/16/20 21:45 Medical Decision Making 65-year-old gentleman with complex past medical history presents to the ER reporting a weeklong history of decreased appetite and generalized weakness. He was treated for shingles approximately 2 weeks ago, finished his acyclovir treatment. He has no additional questions or concerns. No recent illness or trauma. He reports that his rash is uncomfortable but otherwise denies any pain whatsoever. Clinically he appears slightly dry but otherwise well, nontoxic. Given his extensive past medical history will obtain IV access, give IV fluid however not rapidly given his history of CHF. Will give p.o. Zofran to see if this helps with his poor appetite. Will initiate a cardiac work-up and obtain a urinalysis. Differential is wide, includes but not excluded to infectious process, atypical ACS, CHF, anemia, electrolyte abnormality, dehydration, medication reaction. His work-up reveals a white blood cell count of 8.56, hemoglobin 10.2, hematocrit 31.6, anemia appears to be near baseline. INR 1.1 potassium 4.0 creatinine 2.90 estimated GFR of 21.81, slightly decreased from his baseline. Glucose 188. Magnesium 2.0. Troponin less than 0.05. BNP 813, this appears to be near his baseline. Urinalysis appears unremarkable, no signs of infection. Patient was able to stand at bedside to provide a urine sample. Patient has received approximately 500 cc of normal saline, this should help with hydration but also not to aggressively to potentially aggravate his CHF. Upon reevaluation patient tells me that he is feeling well, he is actually eating toast and drinking milk. Given his age, multiple comorbidities, feeling of generalized weakness, we had a very transparent conversation. He tells me that he feels well enough to go home and that he would prefer to go home versus further observation here in the ER or being admitted to our facility. I do believe this to be perfectly reasonable given his evaluation. I will provide him with a take-home pack of Zofran as this may help with his appetite, he very well may have some nausea and just does not relate this as nausea but more as a decreased appetite. I do believe that with adequate hydration over the next few days he could have his GFR checked as an outpatient to be sure that his renal function is improving. I contacted his Linda, made her aware of his ER visit and evaluation. She is comfortable taking him up in his current condition. She has no add itional questions or concerns after our conversation. Given his shingles have been present for over 2 weeks, he has already been treated with an antiviral, and the fact the rash is improving slightly, I will not prolong any additional antiviral medication and complicate his polypharmacy. He is already on gabapentin. I do recommend that they contact his primary care provider on Tuesday for prompt outpatient reevaluation. They can discuss additional medications if necessary. Also recheck of his GFR is reasonable. He was encouraged to return to the ER for new or worsening symptoms. ECG Data Attestation: I personally reviewed and interpreted this ECG (s) as follows: Interpretation: Please see official report by Dr. Keyes. Sinus bradycardia, ventricular rate of 51. Prolonged IA interval. Left ventricular hypertrophy. No Stemi HPI General Mode of arrival: wheelchair . Date/Time Provider Initiated Documentation: 08/16/20 18:19 . Limitations to Documentation: no limitations . Information obtained by: patient . HPI Narrative: This is a 65-year-old gentleman with an extensive past medical history that includes anxiety and depression, COPD, CHF, diabetes, GERD, hypertension, hyperlipidemia, left forearm AV fistula, chronic low back pain, hyperlipidemia, obesity, obstructive sleep apnea, bilateral [id number] transplant, renal transplant recipient, presenting to the ER for evaluation. The timeline is not exactly clear, it sounds as though he was seen in urgent care approximately 2 weeks ago, placed on acyclovir for shingles of his left chest and back, finished the antiviral. The rash remains although improving, as is the pain. He states that approximately 1 week ago he began to develop a poor appetite and generalized weakness. This has progressed over the past week. He denies recent illness or trauma. Denies any sick contacts. Denies headache, chest pain, shortness of breath, visual changes, abdominal pain, nausea, vomiting, numbness, tingling, weakness. Reports normal urinary output. Slight decrease in his bowels. He does not typically ambulate, he does have an electric wheelchair Related Data Home Medications Medication Instructions Recorded Confirmed aspirin [Aspirin Low Dose] 81 mg PO DAILY 10/31/12 08/16/20 montelukast 10 mg PO DAILY tab-cap 10/31/12 08/16/20 omeprazole [Prilosec] 40 mg PO DAILY 10/31/12 08/16/20 multivitamin [Daily Multi-Vitamin] 1 ea PO DAILY 05/10/13 08/16/20 cholecalciferol (vitamin D3) 2,000 unit PO DAILY 01/16/16 08/16/20 [Vitamin D3] fluticasone propionate 2 spry NS DAILY PRN 01/16/16 08/16/20 atorvastatin [Lipitor] 1 tab PO DAILY 02/01/17 08/16/20 albuterol sulfate [Ventolin HFA] 90 mcg INHALATION 4-6XD 05/04/18 08/16/20 folic acid 1 mg tablet 1 mg PO DAILY 06/12/18 08/16/20 glucagon HCl 1 mg/mL solution for 1 mg IM ONCE PRN 06/12/18 08/16/20 injection insulin lispro 100 unit/mL See Rx Instructions SC BID 06/12/18 08/16/20 subcutaneous pen mycophenolate mofetil [CellCept] 500 mg PO BID 11/12/18 08/16/20 gabapentin 600 mg PO TID #0 cap 11/15/18 08/16/20 insulin aspart U-100 [Novolog 0 units SUBCUT 0800,1200,1700 #0 ml 11/15/18 08/16/20 Flexpen U-100 Insulin] ipratropium-albuterol 3 ml UPD Q6H #0 ml 11/15/18 08/16/20 tacrolimus 1 mg PO DAILY #0 cap 11/15/18 08/16/20 Levemir FlexTouch U-100 Insuln 55 units SUBCUT BID 08/03/19 08/16/20 Stiolto Respimat 2 puff INHALATION DAILY 08/03/19 08/16/20 Victoza 2-Nigel 1.8 mg SUBCUT QDAY 08/03/19 08/16/20 primidone 50 mg PO BID 08/03/19 08/16/20 amlodipine 5 mg PO DAILY #30 tab 08/06/19 08/16/20 polyethylene glycol 3350 17 g PO DAILY PRN PRN #1 ea 08/06/19 08/16/20 Previous Rx's Medication Instructions Recorded gabapentin 600 mg PO TID #0 cap 11/15/18 insulin aspart U-100 [Novolog 0 units SUBCUT 0800,1200,1700 #0 ml 11/15/18 Flexpen U-100 Insulin] ipratropium-albuterol 3 ml UPD Q6H #0 ml 11/15/18 tacrolimus 1 mg PO DAILY #0 cap 11/15/18 amlodipine 5 mg PO DAILY #30 tab 08/06/19 polyethylene glycol 3350 17 g PO DAILY PRN PRN #1 ea 08/06/19 Allergies Allergy/AdvReac Type Severity Reaction Status Date / Time levofloxacin Allergy Mild Unverified 08/16/20 18:39 sulfamethoxazole Allergy Mild Unverified 08/16/20 18:39 [From Bactrim] trimethoprim [From Bactrim] Allergy Mild Unverified 08/16/20 18:39 clindamycin Allergy Skin Rash Verified 08/16/20 18:39 ibuprofen Allergy Verified 08/16/20 18:39 Penicillins Allergy SWELLING Verified 08/16/20 18:39 tree nut Allergy Verified 08/16/20 18:39 lisinopril AdvReac KIDNEY Verified 08/16/20 18:39 SHUT DOWN yaneth inhibitors Allergy Mild Skin Rash Uncoded 08/16/20 18:39 CATS & BIRDS AdvReac Intermediate WHEEZING Uncoded 08/16/20 18:39 General RADHA: 3 Review of Systems Constitutional Constitutional: Reports fatigue, Reports fever(s), Denies headache(s), Reports poor appetite and Reports weakness Eyes Eyes: Denies change in vision ENT Ears, Nose, Mouth, and Throat: Denies headache(s) and Denies neck pain Cardiovascular Cardiovascular: Denies chest pain and Denies dyspnea Respiratory Respiratory: Denies cough and Denies dyspnea Gastrointestinal Gastrointestinal: Denies abdominal pain, Denies melena, Denies hematochezia, Reports constipation, Denies diarrhea, Denies nausea and Denies vomiting Musculoskeletal Musculoskeletal: Reports back pain (Chronic) and Denies neck pain Integumentary/Breasts Skin/Breast: Reports rash Neurologic Neurologic: Denies headache(s) and Reports weakness Endocrine Endocrine: Reports fatigue [facility] Medical History (Updated 08/16/20 @ 21:02 by DA Ayala) Anxiety and depression COPD (chronic obstructive pulmonary disease) Diabetes mellitus Erectile dysfunction Gastroparesis diabeticorum GERD (gastroesophageal reflux disease) HTN (hypertension) Hydrocele Hyperlipidemia Intention tremor LEFT FOREARM AV FISTULA Lumbar back pain Macrocytic anemia Obesity MELISSA (obstructive sleep apnea) MELISSA (obstructive sleep apnea) Sciatica Stage 3 severe COPD by GOLD classification Tricuspid insufficiency Surgical History Colonoscopy - MAC (02/01/17) EGD - MAC (04/02/16) Hx of amputation below knee Kidney transplant recipient Family History Brother Personal history of malignant neoplasm Social History Smoking/Tobacco Use Status: Former Tobacco Use Smoking risk assessment performed?: Yes Alcohol Intake: never Drug use: Never Do you feel safe at home: Yes Do you feel safe in your relationship?: Yes Additional Social history: pt interacts well with family at bedside Exam Const General: cooperative, healthy appearing, comfortable and no acute distress Orientation: alert, awake and oriented x3 [facility] Head: normal to inspection, normocephalic and atraumatic Mouth: moist mucous membranes abnormal (Slightly dry) Throat: posterior oropharynx normal Eyes General: appearance normal, both eyes and all related structures Conjunctivae: conjunctivae normal Sclera: sclerae normal Neck Neck: normal visual inspection, full ROM, no meningeal signs, trachea midline and supple Chest Other: There is a shingles-like rash that goes from the left anterior-lateral chest past his axilla and onto his back in the T2 dermatome. Rash appears to be in a crusting phase as opposed to weeping. Tender to palpation. There is no warmth, spreading erythema, or signs of infection. Resp Effort & Inspection: normal respiratory effort and able to speak in complete sentences Auscultation: clear to auscultation bilaterally Cardio Rate: bradycardic Rhythm: regular rhythm GI Inspection: obesity Palpation: soft, not firm, no guarding, no pulsatile masses and nontender Auscultation: normal bowel sounds Back/Spine/Pelvis Back: No back tenderness Skin General skin exam: other (Shingles-like rash as above, otherwise unremarkable) Neuro General: patient alert, patient awake, patient oriented x3, moves all extremities and no focal motor deficits Cognition: normal cognition Speech: speech normal Gait: normal gait Motor: muscle tone normal throughout Sensory Exam: no sensory deficits noted Extrem General: full ROM, capillary refill normal and other (Bilateral below the knee amputation, otherwise unremarkable) Psych Appearance: grossly normal Mental Status: mental status grossly normal
--- NOTE | 2020-08-16 18:45 | RT.EKG_ITS ---
APPROVED REPORT Exam: Resting ECG Patient Location: E HR:51 bpm ECG Measurements Heart Rate 51 AXIS OR 239 P 44 QRSd 121 QRS -37 QT 504 T -1 QTc 466 Conclusion Sinus bradycardia. Prolonged OR interval. Nonspecific IVCD Left ventricular hypertrophy
--- NOTE | 2020-08-16 18:45 | DI.RAD_ITS ---
EXAM: XR CHEST 2V PA LATERAL CLINICAL HISTORY: weakness. TECHNIQUE: 2D digital imaging was performed. COMPARISON: CR,XR XR CHEST 2V PA LATERAL from 08/03/2019 FINDINGS: Heart size is upper normal. The mediastinum is not widened. Lungs are clear. No infiltrates nor pleural effusions. IMPRESSION: No acute pulmonary findings.Previously present infiltrate in the left lung seen on the 08/03/2019 is no longer seen. DATA REPOSITORY: RADIATION DOSE DELIVERED:
[2020-08-16] MEDS: Ondansetron 4 MG/2 ML VIAL IVP (19:31)
[2020-08-16 19:32] LABS: Abs Immature Grans 0.01 10^3/uL (0.0-0.06); Absolute Basophil Count 0.06 10^3/uL (0.0-0.2); Absolute Eosinophil Count 0.36 10^3/uL (0.0-0.7); Absolute Lymphocyte Count 2.72 10^3/uL (1.2-3.4); Absolute Monocyte Count 0.72 10^3/uL (0.1-0.8); Absolute Neutrophil Count 4.69 10^3/uL (1.2-6.7); Basophils % 0.7; Eosinophils % 4.2; HCT 31.6 % (40.0-50.0); HGB 10.2 g/dL (13.5-17.5); Immature Grans % 0.1; Lymphocytes % 31.8; MCHC 32.3 % (32.0-36.0); MCV 92.9 fL (80-95); MPV 8.6 fL (8.0-11.0); Monocytes % 8.4; Neutrophils % 54.8; Nucleated RBC 0 %; Platelet Count 270 10^3/uL (130-400); RDW 13.9 % (11.8-14.1); RDW-SD 46.2 fL; WBC 8.56 10^3/uL (4.4-10.8)
[2020-08-16] MEDS: Normal Saline 250 ML IV (19:32)
[2020-08-16 19:45] LABS: INR 1.1 (0.9-1.1); PTT Activated 24.7 sec (21.0-27.5); Prothrombin Time 10.7 sec (9.3-11.0)
[2020-08-16 19:49] LABS: ALT 16 U/L (16-63); AST 11 U/L (15-37); Albumin 2.9 g/dL (3.4-5.0); Alkaline Phosphatase 117 U/L (46-116); Anion Gap 11.8 mmol/L (3-11); BUN 46 mg/dL (7-18); Bilirubin, Total 0.3 mg/dL (0.2-1.0); CO2 22.2 mmol/L (21.0-32.0); Calcium 9.5 mg/dL (8.5-10.1); Chloride 105 mmol/L (98-107); Estimated GFR 21.81 (mL/min/1.73m2); Glucose 188 mg/dL (74-106); Sodium 139 mmol/L (136-145); Total Protein 8.1 g/dL (6.4-8.2); Troponin I < 0.05 ng/mL (<0.06)
[2020-08-16 19:55] LABS: NT-proBNP 813 pg/mL (<300)
--- NOTE | 2020-08-16 20:20 | DI.VRAD_ITS ---
PROCEDURE INFORMATION: Exam: XR Chest, 2 Views Exam date and time: 08/16/2020 8:03 PM Age: 65 years old Clinical indication: Other: Weakness TECHNIQUE: Imaging protocol: XR of the chest Views: 2 views. COMPARISON: CR XR CHEST 2V PA LATERAL 08/03/2019 3:03 AM FINDINGS: Lungs: Unremarkable. No consolidation. Pleural space: Unremarkable. No pleural effusion. No pneumothorax. Heart/Mediastinum: Unremarkable. No cardiomegaly. Bones/joints: Unremarkable. IMPRESSION: No acute cardiopulmonary abnormality. Dictated and Authenticated by: Angel Pierre MD. Ordering:CARIDAD Salamanca MD
[2020-08-16 20:35] LABS: Bilirubin Negative (Negative); Blood Negative (Negative); Clarity Clear (Clear); Glucose 100 mg/dL (Negative); Ketones Negative (Negative); Leukocyte Esterase Negative (Negative); Nitrite Negative (Negative); Specific Gravity 1.025 (1.005-1.025); Urobilinogen 0.2 EU/dL (Up TO 0.2); pH 5.5 (5-8)
[2020-08-16 20:45] LABS: Bacteria Negative HPF (Negative); C & S Indicated? No; Casts 3-5 Hyaline LPF (Negative); Crystals Negative HPF (Negative); Epithelial Cells Negative HPF (Negative); Mucus Negative (Negative); RBC 0-2 HPF (0-2); WBC 0-2 HPF (0-5)
[2020-08-16] MEDS: Ondansetron O.D.T. 4 MG TABEF, 3 TABS/BTL PO (21:27)
== END 2020-08-16 21:45 | disposition home or self-care (01) ==
PROVIDERS: Emergency Provider Physician Assistant; PCP Family Medicine
DX: R53.1 Weakness (principal); R63.0 Anorexia; I11.0 Hypertensive heart disease with heart failure; I50.9 Heart failure, unspecified; E11.9 Type 2 diabetes mellitus without complications; Z79.4 Long term (current) use of insulin; J44.9 Chronic obstructive pulmonary disease, unspecified
CPT/HCPCS: 36415; 80053; 93005; 96361; 96374; 99284; 71046; 81003; 81015; 83735; 83880; 84484; 85025; 85610; 85730; 93010; J2405

== ENCOUNTER 2020-08-27 19:20 | Outpatient (REF) | payer MEDICARE, OTHER, SELFPAY ==
[2020-08-27 19:38] LABS: COMMENT (LAB VIEW ONLY) 87.91 mg/dL
[2020-08-27 21:06] LABS: Microalb ug/mg Crea 1128.4 ug/mg Cr
== END 2020-08-27 19:21 | disposition home or self-care (01) ==
LOC: NCHCN 19:20
PROVIDERS: PCP Family Medicine; Visit Provider Family Medicine
DX: E11.9 Type 2 diabetes mellitus without complications (principal); Z79.4 Long term (current) use of insulin
CPT/HCPCS: 82043; 82570

== ENCOUNTER 2020-10-08 16:03 | Outpatient (CLI) | payer MEDICARE, OTHER, SELFPAY ==
[2020-10-08 16:34] LABS: Abs Immature Grans 0.03 10^3/uL (0.0-0.06); Absolute Basophil Count 0.07 10^3/uL (0.0-0.2); Absolute Eosinophil Count 0.44 10^3/uL (0.0-0.7); Absolute Lymphocyte Count 2.42 10^3/uL (1.2-3.4); Absolute Monocyte Count 0.77 10^3/uL (0.1-0.8); Absolute Neutrophil Count 4.49 10^3/uL (1.2-6.7); Basophils % 0.9; Eosinophils % 5.4; HCT 27.7 % (40.0-50.0); HGB 8.8 g/dL (13.5-17.5); Immature Grans % 0.4; Lymphocytes % 29.4; MCH 31.3 pg (27.0-33.0); MCHC 31.8 % (32.0-36.0); MCV 98.6 fL (80-95); MPV 8.2 fL (8.0-11.0); Monocytes % 9.4; Neutrophils % 54.5; Nucleated RBC 0 %; Platelet Count 206 10^3/uL (130-400); RBC 2.81 10^6/uL (4.36-5.78); RDW 14.8 % (11.8-14.1); RDW-SD 54.2 fL; WBC 8.22 10^3/uL (4.4-10.8)
[2020-10-08 17:08] LABS: Ferritin 103 ng/mL (26-388)
[2020-10-08 17:43] LABS: Iron 41 ug/dL (65-175); Total Iron Binding Capacity 217 ug/dL (250-450); Transferrin Sat 19 % (20-55)
[2020-10-10 22:53] LABS: Erythropoietin 38.8 mIU/mL (2.6 - 18.5)
== END 2020-10-08 16:04 | disposition home or self-care (01) ==
LOC: LBO 16:03
PROVIDERS: PCP Family Medicine; Visit Provider Internal Medicine Hematology & Oncology
DX: N18.4 Chronic kidney disease, stage 4 (severe) (principal); D63.1 Anemia in chronic kidney disease; Z94.0 Kidney transplant status
CPT/HCPCS: 36415; 82668; 82728; 83540; 83550; 85025

== ENCOUNTER → 2020-10-24 10:58 | Outpatient (BNVA) | payer MEDICARE, OTHER, SELFPAY | PROVIDERS: PCP Family Medicine; Referring Provider Family Medicine; Visit Provider Physical Therapy Assistant | DX: Z12.11 Encounter for screening for malignant neoplasm of colon (principal); Z86.010 Personal history of colon polyps; Z94.0 Kidney transplant status ==

== ENCOUNTER 2020-10-29 12:04 | Outpatient (CLI) | payer MEDICARE, OTHER, SELFPAY ==
[2020-10-29 12:33] LABS: HCT 29.3 % (40.0-50.0); HGB 9.4 g/dL (13.5-17.5); MCH 31.3 pg (27.0-33.0); MCHC 32.1 % (32.0-36.0); MCV 97.7 fL (80-95); MPV 8.5 fL (8.0-11.0); Platelet Count 223 10^3/uL (130-400); RDW 13.9 % (11.8-14.1); RDW-SD 49.5 fL; WBC 7.28 10^3/uL (4.4-10.8)
[2020-10-29 12:56] LABS: Bilirubin Negative (Negative); Blood Negative (Negative); Clarity Clear (Clear); Glucose 100 mg/dL (Negative); Ketones Negative (Negative); Leukocyte Esterase Negative (Negative); Nitrite Negative (Negative); Specific Gravity 1.025 (1.005-1.025); Urobilinogen 0.2 EU/dL (Up TO 0.2); pH 6.5 (5-8)
[2020-10-29 13:09] LABS: Bacteria Negative HPF (Negative); C & S Indicated? No; Casts Negative LPF (Negative); Crystals Negative HPF (Negative); Epithelial Cells Rare HPF (Negative); Mucus Negative (Negative); RBC 0-2 HPF (0-2); WBC Negative HPF (0-5)
[2020-10-29 13:34] LABS: Calcium 9.3 mg/dL (8.5-10.1); Glucose 154 mg/dL (74-106); PHOSPHORUS 3.8 mg/dL (2.6-4.7)
[2020-10-29 13:35] LABS: ALT 17 U/L (16-63); AST 10 U/L (15-37); Alkaline Phosphatase 108 U/L (46-116); Anion Gap 8.2 mmol/L (3-11); BUN 35 mg/dL (7-18); Bilirubin, Total 0.3 mg/dL (0.2-1.0); CO2 24.8 mmol/L (21.0-32.0); Chloride 106 mmol/L (98-107); Estimated GFR 20.98 (mL/min/1.73m2); Magnesium 1.7 mg/dL (1.8-2.4); Sodium 139 mmol/L (136-145); Total Protein 7.2 g/dL (6.4-8.2); Uric Acid 7.3 mg/dL (3.5-7.2)
[2020-10-29 13:43] LABS: PROTEIN 124.9 mg/dL
[2020-10-29 13:46] LABS: COMMENT (LAB VIEW ONLY) 57.16 mg/dL; Prot/Crea Ur Ratio 2.18
[2020-10-29 13:48] LABS: Cholesterol 101 mg/dL (<200)
[2020-10-30 13:17] LABS: Tacrolimus 4.5 ng/mL (See Note)
== END 2020-10-29 12:05 | disposition home or self-care (01) ==
LOC: LBO 12:06
PROVIDERS: PCP Family Medicine; Visit Provider Internal Medicine Nephrology
DX: Z94.0 Kidney transplant status (principal); Z79.899 Other long term (current) drug therapy
CPT/HCPCS: 80053; 85027; 80197; 81003; 81015; 82465; 82565; 83735; 84100; 84156; 84550

== ENCOUNTER 2020-11-05 02:49 | Outpatient (CLI) | payer MEDICARE, OTHER, SELFPAY ==
[2020-11-05 11:13] LABS: Source Nasal/Nares
[2020-11-05 14:05] LABS: COVID-19 PCR Negative (Negative)
== END 2020-11-05 02:50 | disposition home or self-care (01) ==
LOC: LBO 02:49
PROVIDERS: Surgery; PCP Family Medicine; Visit Provider Physical Therapy Assistant
DX: Z20.822 Contact with and (suspected) exposure to COVID-19 (principal); Z01.818 Encounter for other preprocedural examination
CPT/HCPCS: 87635

== ENCOUNTER 2020-11-07 10:02 | Day surgery (SDC) | payer MEDICARE, OTHER, SELFPAY ==
--- NOTE | 2020-11-03 09:49 | ANES_ITS ---
Date of service: 11/03/20 Time of Service: 09:49 Anesthesia Note Report Anesthesia Note: Reviewed chart for appropriateness of proceeding with colonoscopy here at [facility]. Patient had 2 endoscopes here in 2019 that he tolerated well. Echo 04/14/18 EF 50-55%, mild-mod TR, EKG 08/16/20 SB with prolonged PA, LVH. S/P Kidney transplant, bli. BKA, OK to proceed.
--- NOTE | 2020-11-03 09:49 | PDOC.ANES ---
Date of service: 11/03/20 Time of Service: 09:49 Anesthesia Note Report Anesthesia Note: Reviewed chart for appropriateness of proceeding with colonoscopy here at [facility]. Patient had 2 endoscopes here in 2019 that he tolerated well. Echo 04/14/18 EF 50-55%, mild-mod TR, EKG 08/16/20 SB with prolonged NE, LVH. S/P Kidney transplant, bli. BKA, OK to proceed.
[2020-11-04 13:00] VITALS: BP 125/54; PULSE 68; RESP 16; TEMP 36.8; O2SAT 99
[2020-11-07 10:10] VITALS: BP 139/52; PULSE 68; RESP 18; TEMP 36.5; O2SAT 96
[2020-11-07] MEDS: Lactated Ringers 1,000 ML 80 ML IV (10:54)
--- NOTE | 2020-11-07 11:25 | BOWEL_PTH ---
PATIENT: Leroy Torres LOC: [facility] U#:[id number] AGE/SX: 65/M ROOM: RE11/07/[address]: Brie Lux : 1955 BED: DIS: 11/07/2020 SPEC #: [id number] RECD: 11/07/20 12:31 STATUS: VOLODYMYR REQ #: [id number] ELOISE: 11/07/20 11:[address]: Brie Lux DEPT: Surgical Specimen RECD BY: Purnima Guerrero ENTERED: 11/07/20 12:31 SP TYPE: Bowel OTHR DR: Violetta Sanford Tissues: 1 - BIOPSY BOWEL 2 - BIOPSY BOWEL Procedures: GROSS AND MICRO LEVEL 4 Comments: [id number]
--- NOTE | 2020-11-07 12:06 | W.PM.DSUDISC ---
Discharge Plan Disposition Patient Disposition: HOME Condition: Good Discharge Details Reason For Visit: colon scope Attending Provider: Brie Lux Primary Care Provider: Violetta Sanford Home Meds and New Rx's Prescriptions: Continued folic acid 1 mg tablet 1 mg PO DAILY RF: 0 glucagon HCl 1 mg recon soln 1 mg IM ONCE PRNRF: 0 aspirin [Aspirin Low Dose] 81 MG tablet,delayed release (DR/EC) 81 mg PO DAILY RF: 0 omeprazole [Prilosec] 40 MG capsule,delayed release(DR/EC) 40 mg PO DAILY RF: 0 montelukast 10 MG tablet 10 mg PO DAILY RF: 0 multivitamin [Daily Multi-Vitamin] 1 EACH tablet 1 ea PO DAILY RF: 0 hydralazine 100 mg tablet 100 mg PO TID RF: 0 metoprolol succinate 50 mg tablet extended release 24 hr 50 mg PO BID RF: 0 guaifenesin 200 mg tablet 200 mg PO Q4H RF: 0 fluticasone propionate 50 mcg/actuation spray,suspension 1 spray intranasal DAILY RF: 0 vitamin B complex [B Complex-Vitamin B12] Tablet 1 tab PO DAILY RF: 0 tacrolimus [Prograf] 1 mg capsule 1 mg PO Q12H RF: 0 cholecalciferol (vitamin D3) [Vitamin D3] 2,000 UNIT tablet 2,000 unit PO DAILY RF: 0 fluticasone propionate 16 GM spray,suspension 2 spry NS DAILY PRNRF: 0 albuterol sulfate [Ventolin HFA] 90 mcg/actuation Hfa Aerosol Inhaler 90 mcg Inhalation 4-6XD RF: 0 mycophenolate mofetil [CellCept] 250 mg Capsule 500 mg PO BID RF: 0 ipratropium-albuterol 0.5 mg-3 mg(2.5 mg base)/3 mL Solution For Nebulization 3 ml UPD Q6H Qty: 0 RF: 0 gabapentin 300 mg Capsule 600 mg PO TID Qty: 0 RF: 0 tacrolimus 0.5 mg Capsule 1 mg PO DAILY Qty: 0 RF: 0 insulin aspart U-100 [Novolog Flexpen U-100 Insulin] 100 unit/mL Insulin Pen 0 units subcut 0800,1200,1700 Qty: 0 RF: 0 atorvastatin [Lipitor] 20 MG tablet 1 tab PO DAILY RF: 0 primidone 50 mg Tablet 50 mg PO BID RF: 0 Victoza 2-Nigel 0.6 mg/0.1 mL (18 mg/3 mL) Pen Injector 1.8 mg SUBCUT QDAY RF: 0 Stiolto Respimat 2.5-2.5 mcg/actuation Mist 2 puff inhalation DAILY RF: 0 Levemir FlexTouch U-100 Insuln 100 unit/mL (3 mL) insulin pen 55 units subcut BID RF: 0 amlodipine 5 mg Tablet 5 mg PO DAILY Qty: 30 RF: 2 Discontinued bisacodyl [Dulcolax (bisacodyl)] 5 mg tablet,delayed release (DR/EC) 5 mg PO ONCE Qty: 8 RF: 0 polyethylene glycol 3350 17 gram/dose powder 238 g PO ONCE Qty: 476 RF: 0 polyethylene glycol 3350 17 gram Powder In Packet 17 g PO DAILY PRN PRN (Reason: Constipation) Qty: 1 RF: 0 Discharge Instructions Additional Instructions: Findings:colon polyps x 4 Follow up: No further repeat colonoscopies required Please call if you develop: fevers >101.5 Nausea or Vomiting Abdominal pain that is not transient DAY SURGERY UNIT POST COLONOSCOPY INSTRUCTIONS 1. Because there will be medication in your system for the next 24 hours, you may feel a little sleepy. Your coordination will be affected. Therefore: a. Do not drive or operate dangerous equipment for 24 hours. b. Do not drink alcohol beverages for 24 hours (not even beer). c. Plan to go home and rest for the day. 2. Generally there are no restrictions on your activity after a day or so has gone by, but you may feel a bit fatigued for a few days. 3 After you arrive home you may have a light meal and return to a normal diet as you can tolerate it without feeling sick to your stomach. 4. After surgery, you may feel pain or discomfort. This should be only transient, but if it persists please contact your doctor. 5. If there are any questions regarding the findings of your procedure, please feel free to contact your doctor. 6. If you are unable to contact your doctor with a problem, contact the hospital at [phone]. 7. Continue all your regular medications unless directed otherwise. I understand the above instructions and have no questions. Signature of Patient or Responsible Adult Escort Date/Time Name of Responsible Adult Escort Signature of Nurse Date/Time Activity:: Activity as Tolerated Diet:: Carb Counting Discharge Orders Discharge Orders: Discharge Order (Routine); Ordered 11/07/20 Ordered By: Brie Lux DS: Diagnosis Discharge Diagnosis (1) Wenckebach second degree AV block: Status: Acute (2) Atrial fibrillation: Status: Chronic (3) MELISSA (obstructive sleep apnea): Status: Chronic (4) Uncontrolled insulin dependent diabetes mellitus: Status: Acute (5) Diastolic CHF: Status: Acute (6) Kidney transplant recipient: Status: Acute (7) LEFT FOREARM AV FISTULA: Status: None (8) COPD (chronic obstructive pulmonary disease): Status: None (9) Adenomatous colon polyp: Status: Inactive (10) Gastroparesis diabeticorum: Status: Acute (11) Macrocytic anemia: Status: Acute
[2020-11-07 12:15] VITALS: BP 123/49; PULSE 65; RESP 16; TEMP 36.4; O2SAT 98
--- NOTE | 2020-11-16 15:40 | W.PM.OP ---
Date of service: 11/07/20 Time of Service: 13:00 Operative Note Operative Note DATE OF PROCEDURE: 11/07/20 SURGEON: Brie Lux ANESTHESIA TYPE: General:No Airway Refer to Anesthesia Record ESTIMATED BLOOD LOSS: 0 PATHOLOGY: other Patient was transported to: same day Procedure Description: After informed consent was obtained the patient was taken to the procedure room and placed in a left decubitous position. Monitors were applied and a time out was done. The patients name, date of , procedure, allergies to medications and metal in their body was reviewed. The patient was then sedated. Once sedated and comfortable a rectal exam was done. External exam was normal. Internal exam revealed a normal sphincter tone and no palpable masses. The scope was then introduced and retrofelexed. No internal hemorrhoids were identified. The scope was then advanced to the cecum w/out difficulty. The TI and appendiceal orifice were identified. The prep was good. The scope was then slowly retracted over 12 minutes back into the rectum. Polyps were removed: x1 at 60cm w/ a cold Bx forcept and x3 at 50cm w/ cold forcept. these are all .5cm flat polyps. All specimen is retrieved and no bleeding is noted. The mucosa is pink and healthy. There is no diverticular disease. The scope was removed and the patient was woken up and taken back to Same day surgery in stable condition. The patient tolerated the procedure well and there were no immediate complications. Follow up: The patient does not require any further colonoscopies, unless they develop changes in bowel habits or other new gastrointestinal complaints.
== END 2020-11-07 13:25 | disposition home or self-care (01) ==
PROVIDERS: PCP Family Medicine; Visit Provider Surgery
PROC: 0DJD8ZZ Inspection of Lower Intestinal Tract, Via Natural or Artificial Opening Endoscopic (ICD-10-PCS; CPT 45378; principal; 2020-11-07 10:45)
DX: Z12.11 Encounter for screening for malignant neoplasm of colon (principal); Z86.010 Personal history of colon polyps; D12.6 Benign neoplasm of colon, unspecified; G47.33 Obstructive sleep apnea (adult) (pediatric); I10 Essential (primary) hypertension; E11.9 Type 2 diabetes mellitus without complications; K21.9 Gastro-esophageal reflux disease without esophagitis
CPT/HCPCS: 45380; 88305; J2001

== ENCOUNTER 2020-11-19 12:50 | Outpatient (RCR) | payer MEDICARE, OTHER, SELFPAY ==
[2020-11-19 13:01] LABS: Abs Immature Grans 0.03 10^3/uL (0.0-0.06); Absolute Basophil Count 0.05 10^3/uL (0.0-0.2); Absolute Eosinophil Count 0.22 10^3/uL (0.0-0.7); Absolute Lymphocyte Count 2.08 10^3/uL (1.2-3.4); Absolute Monocyte Count 0.73 10^3/uL (0.1-0.8); Absolute Neutrophil Count 4.81 10^3/uL (1.2-6.7); Basophils % 0.6; Eosinophils % 2.8; HCT 31.5 % (40.0-50.0); HGB 9.9 g/dL (13.5-17.5); Immature Grans % 0.4; Lymphocytes % 26.3; MCH 30.3 pg (27.0-33.0); MCHC 31.4 % (32.0-36.0); MCV 96.3 fL (80-95); MPV 8.6 fL (8.0-11.0); Monocytes % 9.2; Neutrophils % 60.7; Nucleated RBC 0 %; Platelet Count 197 10^3/uL (130-400); RBC 3.27 10^6/uL (4.36-5.78); RDW 13.2 % (11.8-14.1); RDW-SD 46.8 fL; WBC 7.92 10^3/uL (4.4-10.8)
== END 2020-11-21 23:59 | disposition home or self-care (01) ==
LOC: INF 12:50
PROVIDERS: PCP Family Medicine; Visit Provider Internal Medicine Hematology & Oncology
DX: N18.4 Chronic kidney disease, stage 4 (severe) (principal); D63.1 Anemia in chronic kidney disease; Z94.0 Kidney transplant status
CPT/HCPCS: 36415; 85025

== ENCOUNTER 2020-12-06 17:35 | Emergency (ER) | payer MEDICARE, OTHER, SELFPAY ==
[2020-12-06 17:45] VITALS: BP 150/69; PULSE 75; RESP 16; TEMP 37.1; O2SAT 97
--- NOTE | 2020-12-06 17:55 | ED.GENADUL_ITS ---
Discharge Plan Disposition Patient Disposition: HOME Condition: Stable Discharge Details Clinical Impression: Esophageal foreign body Primary Care Provider: Violetta Sanford ED Provider: Alejo Carlisle [place] Meds and New Rx's Prescriptions: Continued folic acid 1 mg tablet 1 mg PO DAILY RF: 0 glucagon HCl 1 mg recon soln 1 mg IM ONCE PRNRF: 0 aspirin [Aspirin Low Dose] 81 MG tablet,delayed release (DR/EC) 81 mg PO DAILY RF: 0 omeprazole [Prilosec] 40 MG capsule,delayed release(DR/EC) 40 mg PO DAILY RF: 0 montelukast 10 MG tablet 10 mg PO DAILY RF: 0 multivitamin [Daily Multi-Vitamin] 1 EACH tablet 1 ea PO DAILY RF: 0 hydralazine 100 mg tablet 100 mg PO TID RF: 0 metoprolol succinate 50 mg tablet extended release 24 hr 50 mg PO BID RF: 0 guaifenesin 200 mg tablet 200 mg PO Q4H RF: 0 fluticasone propionate 50 mcg/actuation spray,suspension 1 spray intranasal DAILY RF: 0 vitamin B complex [B Complex-Vitamin B12] Tablet 1 tab PO BID RF: 0 tacrolimus [Prograf] 1 mg capsule 1 mg PO Q12H RF: 0 cholecalciferol (vitamin D3) [Vitamin D3] 2,000 UNIT tablet 2,000 unit PO DAILY RF: 0 fluticasone propionate 16 GM spray,suspension 2 spry NS DAILY PRNRF: 0 albuterol sulfate [Ventolin HFA] 90 mcg/actuation Hfa Aerosol Inhaler 90 mcg Inhalation 4-6XD RF: 0 mycophenolate mofetil [CellCept] 250 mg Capsule 500 mg PO BID RF: 0 ipratropium-albuterol 0.5 mg-3 mg(2.5 mg base)/3 mL Solution For Nebulization 3 ml UPD Q6H Qty: 0 RF: 0 gabapentin 300 mg Capsule 600 mg PO TID Qty: 0 RF: 0 tacrolimus 0.5 mg Capsule 1 mg PO DAILY Qty: 0 RF: 0 insulin aspart U-100 [Novolog Flexpen U-100 Insulin] 100 unit/mL Insulin Pen 0 units subcut 0800,1200,1700 Qty: 0 RF: 0 atorvastatin [Lipitor] 20 MG tablet 1 tab PO DAILY RF: 0 primidone 50 mg Tablet 50 mg PO BID RF: 0 Victoza 2-Nigel 0.6 mg/0.1 mL (18 mg/3 mL) Pen Injector 1.8 mg SUBCUT QDAY RF: 0 Stiolto Respimat 2.5-2.5 mcg/actuation Mist 2 puff inhalation DAILY RF: 0 Levemir FlexTouch U-100 Insuln 100 unit/mL (3 mL) insulin pen 55 units subcut BID RF: 0 amlodipine 5 mg Tablet 5 mg PO DAILY Qty: 30 RF: 2 Discharge Instructions Instructions: Esophageal Foreign Body (ED) Additional Instructions: follow up with your primary care provider within 1-2 weeks if you feel more ill, have worsening pain or difficulty breathing return to the emergency department Medical Decision Making 65 yo male with hx of htn, hld, ckd, who comes in with complaint fo feeling food stuck in his throat. He states he was eating raw brocolli and felt a piece get stuck in the throat and points to the [place]el[place] apple area. He is not drooling and is able to talk, protecting his airway, he does state any time he tries to swallow he has to spit it all back up. No chest pain or dyspnea. Given the history likely esophageal foreign body, will try glucagon and effervescent and reassess. no relief with glucagon or effervescent, still can't swallow liquids without spitting it up, will consult general surgery consulted with Dr. Lux who will be in to see the patient and likely bring for endoscopy patient felt the food go down and now can swallow water, will plan on d/c home but will discuss with general surgery first Differential Diagnosis Differential Diagnosis: throat foreign body, esophageal foreign body HPI General Mode of arrival: ambulatory . Date/Time Provider Initiated Documentation: 12/06/20 17:39 . Limitations to Documentation: no limitations . Information obtained by: patient . History of Present Illness 65 year old M presents to the emergency department with the chief complaint of feels food stuck in throat, described as moderate, Patient started experiencing this ho ur(s) (1) and it has been constant. No relieving factors improve symptom(s), No exacerbating factors reported . Patient notes no other symptoms.. Patient did receive the following treatments prior to arrival, none Related Data Home Medications Medication Instructions Recorded Confirmed aspirin [Aspirin Low Dose] 81 mg PO DAILY 10/31/12 12/06/20 montelukast 10 mg PO DAILY tab-cap 10/31/12 12/06/20 omeprazole [Prilosec] 40 mg PO DAILY 10/31/12 12/06/20 multivitamin [Daily Multi-Vitamin] 1 ea PO DAILY 05/10/13 12/06/20 cholecalciferol (vitamin D3) 2,000 unit PO DAILY 01/16/16 12/06/20 [Vitamin D3] fluticasone propionate 2 spry NS DAILY PRN 01/16/16 12/06/20 atorvastatin [Lipitor] 1 tab PO DAILY 02/01/17 12/06/20 albuterol sulfate [Ventolin HFA] 90 mcg INHALATION 4-6XD 05/04/18 12/06/20 folic acid 1 mg tablet 1 mg PO DAILY 06/12/18 12/06/20 glucagon HCl 1 mg/mL solution for 1 mg IM ONCE PRN 06/12/18 12/06/20 injection mycophenolate mofetil [CellCept] 500 mg PO BID 11/12/18 12/06/20 gabapentin 600 mg PO TID #0 cap 11/15/18 12/06/20 insulin aspart U-100 [Novolog 0 units SUBCUT 0800,1200,1700 #0 ml 11/15/18 12/06/20 Flexpen U-100 Insulin] ipratropium-albuterol 3 ml UPD Q6H #0 ml 11/15/18 12/06/20 tacrolimus 1 mg PO DAILY #0 cap 11/15/18 12/06/20 Levemir FlexTouch U-100 Insuln 55 units SUBCUT BID 08/03/19 12/06/20 Stiolto Respimat 2 puff INHALATION DAILY 08/03/19 12/06/20 Victoza 2-Nigel 1.8 mg SUBCUT QDAY 08/03/19 12/06/20 primidone 50 mg PO BID 08/03/19 12/06/20 amlodipine 5 mg PO DAILY #30 tab 08/06/19 12/06/20 fluticasone propionate 50 1 spray INTRANASAL DAILY 09/04/20 12/06/20 mcg/actuation nasal spray,suspension guaifenesin 200 mg tablet 200 mg PO Q4H 09/04/20 12/06/20 hydralazine 100 mg tablet 100 mg PO TID tab 09/04/20 12/06/20 metoprolol succinate 50 mg 50 mg PO BID 09/04/20 12/06/20 tablet,extended release 24 hr tacrolimus 1 mg capsule, 1 mg PO Q12H 09/04/20 12/06/20 immediate-release vitamin B complex 1 tab PO BID 09/04/20 12/06/20 Previous Rx's Medication Instructions Recorded gabapentin 600 mg PO TID #0 cap 11/15/18 insulin aspart U-100 [Novolog 0 units SUBCUT 0800,1200,1700 #0 ml 11/15/18 Flexpen U-100 Insulin] ipratropium-albuterol 3 ml UPD Q6H #0 ml 11/15/18 tacrolimus 1 mg PO DAILY #0 cap 11/15/18 amlodipine 5 mg PO DAILY #30 tab 08/06/19 Allergies Allergy/AdvReac Type Severity Reaction Status Date / Time levofloxacin Allergy Mild Unknown Unverified 12/06/20 17:51 sulfamethoxazole Allergy Mild Unknown Unverified 12/06/20 17:51 [From Bactrim] trimethoprim [From Bactrim] Allergy Mild Unknown Unverified 12/06/20 17:51 doxycycline Allergy Unknown Verified 12/06/20 17:51 clindamycin Allergy Skin Rash Verified 12/06/20 17:51 ibuprofen Allergy Verified 12/06/20 17:51 Penicillins Allergy SWELLING Verified 12/06/20 17:51 tree nut Allergy Verified 12/06/20 17:51 lisinopril AdvReac KIDNEY Verified 12/06/20 17:51 SHUT DOWN yaneth inhibitors Allergy Mild Skin Rash Uncoded 12/06/20 17:51 CATS & BIRDS AdvReac Intermediate WHEEZING Uncoded 12/06/20 17:51 General Stated Complaint: ThroatFB RADHA: 3 Review of Systems All systems reviewed & are unremarkable except as noted in HPI and below Constitutional Constitutional: Denies chills, Denies fever(s) and Denies weakness Cardiovascular Cardiovascular: Denies chest pain and Denies dyspnea Respiratory Respiratory: Denies cough and Denies dyspnea Gastrointestinal Gastrointestinal: Denies abdominal pain and Denies vomiting Genitourinary Genitourinary: Denies dysuria Musculoskeletal Musculoskeletal: Denies joint swelling Integumentary/Breasts Skin/Breast: Denies rash Neurologic Neurologic: Denies weakness [facility] Medical History (Updated 12/06/20 @ 19:38 by Alejo Carlisle MD) Adenomatous colon polyp Anxiety and depression Atrial fibrillation COPD (chronic obstructive pulmonary disease) Diabetes mellitus Erectile dysfunction Gastroparesis diabeticorum GERD (gastroesophageal reflux disease) History of colon polyps HTN (hypertension) Hydrocele Hyperlipidemia Intention tremor LEFT FOREARM AV FISTULA Lumbar back pain Macrocytic anemia Obesity MELISSA (obstructive sleep apnea) Personal history of allergy to other antibiotic agent Sciatica Stage 3 severe COPD by GOLD classification Tremor Tricuspid insufficiency Vitamin B 12 deficiency Surgical History (Updated 11/17/20 @ 15:20 by Luda Golden) Colonoscopy - MAC (02/01/17) EGD - MAC (04/02/16) History of below-knee amputation of both lower extremities 2010 History of colonoscopy (~10/2020) Hx of amputation below knee Kidney transplant recipient 2005 Kidney transplant recipient Family History Brother Personal history of malignant neoplasm Social History Smoking/Tobacco Use Status: Former Tobacco Use Quit Date: 07/25/90 Smoking risk assessment performed?: Yes Alcohol Intake: never Drug use: Never Substance use type: does not use Do you feel safe at home: Yes Do you feel safe in your relationship?: Yes Exam Const General: no acute distress Orientation: alert HENMT Head: normal to inspection Ears: external ears normal General nose exam: external nose normal Mouth: moist mucous membranes Eyes General: appearance normal, both eyes and all related structures Neck Neck: normal visual inspection Resp Effort & Inspection: normal respiratory effort and able to speak in complete sentences Cardio Rate: regular rate Skin General skin exam: no rashes or lesions noted Neuro General: patient alert and patient oriented x3 Extrem General: normal to inspection Psych Mental Status: mental status grossly normal Course Vital Signs Vital signs: Vital Signs Temperature 37.1 C 12/06/20 17:45 Pulse 75 12/06/20 17:45 Respiratory Rate 16 12/06/20 17:45 Blood Pressure 150/69 H 12/06/20 17:45 Pulse Oximetry 97 12/06/20 17:45 Temperature 37.1 C 12/06/20 17:45 Temperature Source Temporal Artery Scan 12/06/20 17:45 Pulse 75 12/06/20 17:45 Respiratory Rate 16 12/06/20 17:45 Respiratory Effort 12/06/20 17:50 Blood Pressure 150/69 H 12/06/20 17:45 Pulse Oximetry 97 12/06/20 17:45 Oxygen Delivery Method Room Air 12/06/20 17:45 Oxygen Flow Rate 0 12/06/20 17:45 Lab/Test Results Lab/Test Results: Laboratory Tests Range/Units 12/06/20 17:49 Patient ABO/Rh Cancelled
[2020-12-06] MEDS: Glucagon 1 MG VIAL IVP (18:11)
[2020-12-06] MEDS: Simethicone/Sod Bicarb/Cit Ac, 4 gram PACKET 1 PACKET PO (18:16)
[2020-12-06 18:23] LABS: Source Nasal/Nares
[2020-12-06 18:38] LABS: Abs Immature Grans 0.01 10^3/uL (0.0-0.06); Absolute Basophil Count 0.07 10^3/uL (0.0-0.2); Absolute Eosinophil Count 0.21 10^3/uL (0.0-0.7); Absolute Lymphocyte Count 2.36 10^3/uL (1.2-3.4); Absolute Monocyte Count 0.65 10^3/uL (0.1-0.8); Basophils % 0.9; Eosinophils % 2.6; HCT 32.8 % (40.0-50.0); HGB 10.5 g/dL (13.5-17.5); Immature Grans % 0.1; Lymphocytes % 29.1; MCH 30.5 pg (27.0-33.0); MCV 95.3 fL (80-95); MPV 8.9 fL (8.0-11.0); Neutrophils % 59.3; Nucleated RBC 0 %; Platelet Count 223 10^3/uL (130-400); RBC 3.44 10^6/uL (4.36-5.78); RDW 13.4 % (11.8-14.1); RDW-SD 46.8 fL
[2020-12-06 18:50] LABS: ALT 21 U/L (16-63); AST 20 U/L (15-37); Albumin 3.4 g/dL (3.4-5.0); Alkaline Phosphatase 129 U/L (46-116); Anion Gap 13.2 mmol/L (3-11); BUN 48 mg/dL (7-18); Bilirubin, Total 0.4 mg/dL (0.2-1.0); CO2 19.8 mmol/L (21.0-32.0); CREATININE 3.2 mg/dL (0.70-1.30); Calcium 9.9 mg/dL (8.5-10.1); Chloride 106 mmol/L (98-107); Estimated GFR 19.47 (mL/min/1.73m2); Glucose 218 mg/dL (74-106); Sodium 139 mmol/L (136-145); Total Protein 8.2 g/dL (6.4-8.2)
[2020-12-06 19:24] LABS: COVID-19 PCR Negative (Negative)
[2020-12-06 19:25] LABS: INR 1.1 (0.9-1.1); Prothrombin Time 10.8 sec (9.3-11.0)
[2020-12-06 20:02] VITALS: BP 145/66; PULSE 68; RESP 14; TEMP 37.1; O2SAT 96
[2020-12-06 20:17] VITALS: BP 149/56; PULSE 73; RESP 16; O2SAT 97
== END 2020-12-06 20:25 | disposition home or self-care (01) ==
PROVIDERS: Emergency Provider Emergency Medicine; PCP Family Medicine
DX: T18.128A Food in esophagus causing other injury, initial encounter (principal); X58.XXXA Exposure to other specified factors, initial encounter
CPT/HCPCS: 80053; 86900; 86901; 87635; 96374; 99284; 85025; 85610; 85730; 99283; J1610

== ENCOUNTER 2020-12-10 02:48 | Outpatient (CLI) | payer MEDICARE, OTHER, SELFPAY ==
[2020-12-10 12:05] LABS: Abs Immature Grans 0.01 10^3/uL (0.0-0.06); Absolute Basophil Count 0.05 10^3/uL (0.0-0.2); Absolute Eosinophil Count 0.26 10^3/uL (0.0-0.7); Absolute Lymphocyte Count 1.89 10^3/uL (1.2-3.4); Absolute Monocyte Count 0.39 10^3/uL (0.1-0.8); Absolute Neutrophil Count 4.23 10^3/uL (1.2-6.7); Basophils % 0.7; Eosinophils % 3.8; HCT 30.4 % (40.0-50.0); HGB 9.7 g/dL (13.5-17.5); Immature Grans % 0.1; Lymphocytes % 27.7; MCH 29.6 pg (27.0-33.0); MCHC 31.9 % (32.0-36.0); MCV 92.7 fL (80-95); MPV 8.5 fL (8.0-11.0); Monocytes % 5.7; Nucleated RBC 0 %; Platelet Count 192 10^3/uL (130-400); RBC 3.28 10^6/uL (4.36-5.78); RDW 13.2 % (11.8-14.1); RDW-SD 44.9 fL; WBC 6.83 10^3/uL (4.4-10.8)
[2020-12-10 12:46] LABS: Ferritin 112 ng/mL (26-388)
[2020-12-10 12:48] LABS: Iron 62 ug/dL (65-175); Total Iron Binding Capacity 184 ug/dL (250-450); Transferrin Sat 34 % (20-55)
[2020-12-12 17:45] LABS: Erythropoietin 25.4 mIU/mL (2.6 - 18.5)
== END 2020-12-10 02:49 | disposition home or self-care (01) ==
LOC: LBO 02:48
PROVIDERS: PCP Family Medicine; Visit Provider Internal Medicine Hematology & Oncology
DX: N18.4 Chronic kidney disease, stage 4 (severe) (principal); D63.1 Anemia in chronic kidney disease; Z94.0 Kidney transplant status
CPT/HCPCS: 36415; 82668; 82728; 83540; 83550; 85025

== ENCOUNTER 2020-12-15 02:18 | Outpatient (CLI) | payer MEDICARE, OTHER, SELFPAY ==
[2020-12-15 12:06] LABS: HCT 30.6 % (40.0-50.0); HGB 9.9 g/dL (13.5-17.5); MCH 30.1 pg (27.0-33.0); MCHC 32.4 % (32.0-36.0); MPV 8.9 fL (8.0-11.0); Platelet Count 222 10^3/uL (130-400); RBC 3.29 10^6/uL (4.36-5.78); RDW 13.5 % (11.8-14.1); RDW-SD 45.8 fL; WBC 7.38 10^3/uL (4.4-10.8)
[2020-12-15 12:21] LABS: Bilirubin Negative (Negative); Blood Negative (Negative); Clarity Clear (Clear); Glucose Negative (Negative); Ketones Negative (Negative); Leukocyte Esterase Negative (Negative); Nitrite Negative (Negative); Urobilinogen 0.2 EU/dL (Up TO 0.2); pH 5.5 (5-8)
[2020-12-15 12:39] LABS: Bacteria Few HPF (Negative); Crystals Negative HPF (Negative); Epithelial Cells Negative HPF (Negative); Mucus Negative (Negative); RBC 0-2 HPF (0-2); WBC 0-2 HPF (0-5)
[2020-12-15 12:40] LABS: C & S Indicated? No; Casts 0-2 Hyaline LPF (Negative); PROTEIN 99.6 mg/dL
[2020-12-15 12:45] LABS: Cholesterol 88 mg/dL (<200)
[2020-12-15 12:46] LABS: ALT 27 U/L (16-63); AST 18 U/L (15-37); Albumin 3.1 g/dL (3.4-5.0); Alkaline Phosphatase 124 U/L (46-116); Anion Gap 10.8 mmol/L (3-11); BUN 51 mg/dL (7-18); Bilirubin, Total 0.3 mg/dL (0.2-1.0); CO2 21.2 mmol/L (21.0-32.0); CREATININE 3.1 mg/dL (0.70-1.30); Calcium 9.5 mg/dL (8.5-10.1); Chloride 107 mmol/L (98-107); Glucose 263 mg/dL (74-106); Magnesium 1.6 mg/dL (1.8-2.4); Potassium 5.1 mmol/L (3.5-5.1); Sodium 139 mmol/L (136-145); Total Protein 7.4 g/dL (6.4-8.2); Uric Acid 7.8 mg/dL (3.5-7.2)
[2020-12-15 12:47] LABS: COMMENT (LAB VIEW ONLY) 76.14 mg/dL
[2020-12-16 13:01] LABS: Tacrolimus 4.6 ng/mL (See Note)
== END 2020-12-15 02:19 | disposition home or self-care (01) ==
LOC: LBO 02:18
PROVIDERS: PCP Family Medicine; Visit Provider Internal Medicine Nephrology
DX: Z94.0 Kidney transplant status (principal); Z79.899 Other long term (current) drug therapy
CPT/HCPCS: 36415; 80053; 85027; 80197; 81003; 81015; 82465; 82565; 83735; 84100; 84156; 84550

== ENCOUNTER 2020-12-31 02:37 | Outpatient (CLI) | payer MEDICARE, OTHER, SELFPAY ==
[2020-12-31 10:22] LABS: Abs Immature Grans 0.03 10^3/uL (0.0-0.06); Absolute Basophil Count 0.05 10^3/uL (0.0-0.2); Absolute Eosinophil Count 0.27 10^3/uL (0.0-0.7); Absolute Lymphocyte Count 1.87 10^3/uL (1.2-3.4); Absolute Monocyte Count 0.57 10^3/uL (0.1-0.8); Absolute Neutrophil Count 5.21 10^3/uL (1.2-6.7); Basophils % 0.6; Eosinophils % 3.4; HCT 30.8 % (40.0-50.0); HGB 9.8 g/dL (13.5-17.5); Immature Grans % 0.4; Lymphocytes % 23.4; MCH 30.2 pg (27.0-33.0); MCHC 31.8 % (32.0-36.0); MCV 95.1 fL (80-95); MPV 8.4 fL (8.0-11.0); Monocytes % 7.1; Neutrophils % 65.1; Nucleated RBC 0 %; Platelet Count 194 10^3/uL (130-400); RBC 3.24 10^6/uL (4.36-5.78); RDW 13.5 % (11.8-14.1); RDW-SD 46.7 fL
[2020-12-31 10:50] LABS: Ferritin 117 ng/mL (26-388)
[2020-12-31 11:05] LABS: Iron 42 ug/dL (65-175); Total Iron Binding Capacity 180 ug/dL (250-450); Transferrin Sat 23 % (20-55)
== END 2020-12-31 02:38 | disposition home or self-care (01) ==
LOC: LBO 02:38
PROVIDERS: PCP Family Medicine; Visit Provider Internal Medicine Hematology & Oncology
DX: N18.4 Chronic kidney disease, stage 4 (severe) (principal); D63.1 Anemia in chronic kidney disease; Z94.0 Kidney transplant status
CPT/HCPCS: 36415; 82728; 83540; 83550; 85025

== ENCOUNTER 2021-01-21 03:47 | Outpatient (CLI) | payer MEDICARE, OTHER, SELFPAY ==
[2021-01-21 12:47] LABS: Abs Immature Grans 0.02 10^3/uL (0.0-0.06); Absolute Basophil Count 0.05 10^3/uL (0.0-0.2); Absolute Eosinophil Count 0.24 10^3/uL (0.0-0.7); Absolute Lymphocyte Count 2.01 10^3/uL (1.2-3.4); Absolute Monocyte Count 0.69 10^3/uL (0.1-0.8); Absolute Neutrophil Count 4.12 10^3/uL (1.2-6.7); Basophils % 0.7; Eosinophils % 3.4; HCT 31.3 % (40.0-50.0); HGB 9.6 g/dL (13.5-17.5); Immature Grans % 0.3; Lymphocytes % 28.2; MCH 29.4 pg (27.0-33.0); MCHC 30.7 % (32.0-36.0); MCV 95.7 fL (80-95); MPV 8.1 fL (8.0-11.0); Monocytes % 9.7; Neutrophils % 57.7; Nucleated RBC 0 %; Platelet Count 212 10^3/uL (130-400); RBC 3.27 10^6/uL (4.36-5.78); RDW 13.6 % (11.8-14.1); RDW-SD 47.5 fL; WBC 7.13 10^3/uL (4.4-10.8)
[2021-01-21 13:14] LABS: Ferritin 134 ng/mL (26-388)
[2021-01-21 13:34] LABS: Iron 56 ug/dL (65-175); Total Iron Binding Capacity 207 ug/dL (250-450); Transferrin Sat 27 % (20-55)
== END 2021-01-21 03:48 | disposition home or self-care (01) ==
LOC: LBO 03:47
PROVIDERS: PCP Family Medicine; Visit Provider Internal Medicine Hematology & Oncology
DX: N18.4 Chronic kidney disease, stage 4 (severe) (principal); D63.1 Anemia in chronic kidney disease; Z94.0 Kidney transplant status
CPT/HCPCS: 36415; 82728; 83540; 83550; 85025

== ENCOUNTER 2021-02-11 03:10 | Outpatient (CLI) | payer MEDICARE, OTHER, SELFPAY ==
[2021-02-11 13:46] LABS: Abs Immature Grans 0.01 10^3/uL (0.0-0.06); Absolute Basophil Count 0.05 10^3/uL (0.0-0.2); Absolute Eosinophil Count 0.26 10^3/uL (0.0-0.7); Absolute Lymphocyte Count 1.98 10^3/uL (1.2-3.4); Absolute Monocyte Count 0.72 10^3/uL (0.1-0.8); Absolute Neutrophil Count 4.79 10^3/uL (1.2-6.7); Basophils % 0.6; Eosinophils % 3.3; HCT 28.2 % (40.0-50.0); HGB 8.9 g/dL (13.5-17.5); Immature Grans % 0.1; Lymphocytes % 25.4; MCH 29.9 pg (27.0-33.0); MCHC 31.6 % (32.0-36.0); MCV 94.6 fL (80-95); MPV 8.7 fL (8.0-11.0); Monocytes % 9.2; Neutrophils % 61.4; Nucleated RBC 0 %; Platelet Count 210 10^3/uL (130-400); RBC 2.98 10^6/uL (4.36-5.78); RDW 13.9 % (11.8-14.1); RDW-SD 47.9 fL; WBC 7.81 10^3/uL (4.4-10.8)
[2021-02-11 13:48] LABS: Bilirubin Negative (Negative); Blood Negative (Negative); Clarity Sl Cloudy (Clear); Glucose 100 mg/dL (Negative); Ketones Negative (Negative); Leukocyte Esterase Negative (Negative); Nitrite Negative (Negative); Urobilinogen 0.2 EU/dL (Up TO 0.2); pH 6.5 (5-8)
[2021-02-11 13:59] LABS: Bacteria Few HPF (Negative); C & S Indicated? No; Casts Negative LPF (Negative); Crystals Negative HPF (Negative); Epithelial Cells Negative HPF (Negative); Mucus Trace (Negative); Other Cells Negative (Negative); RBC Negative HPF (0-2); WBC Negative HPF (0-5)
[2021-02-11 14:35] LABS: PROTEIN 107.3 mg/dL
[2021-02-11 14:40] LABS: ALT 21 U/L (16-63); AST 10 U/L (15-37); Albumin 2.8 g/dL (3.4-5.0); Alkaline Phosphatase 121 U/L (46-116); BUN 50 mg/dL (7-18); Bilirubin, Total 0.3 mg/dL (0.2-1.0); Calcium 9.8 mg/dL (8.5-10.1); Chloride 107 mmol/L (98-107); Estimated GFR 15.97 (mL/min/1.73m2); Glucose 263 mg/dL (74-106); Magnesium 1.7 mg/dL (1.8-2.4); PHOSPHORUS 3.5 mg/dL (2.6-4.7); Sodium 139 mmol/L (136-145); Total Protein 6.9 g/dL (6.4-8.2); Uric Acid 7.9 mg/dL (3.5-7.2)
[2021-02-11 14:53] LABS: CREATININE 3.8 mg/dL (0.70-1.30)
[2021-02-11 15:03] LABS: Prot/Crea Ur Ratio 1.48
[2021-02-11 18:17] LABS: Cholesterol 92 mg/dL (<200)
[2021-02-12 13:13] LABS: Tacrolimus 3.7 ng/mL (See Note)
== END 2021-02-11 03:11 | disposition home or self-care (01) ==
LOC: LBO 03:11
PROVIDERS: Internal Medicine Nephrology; PCP Family Medicine; Visit Provider Internal Medicine Hematology & Oncology
DX: N18.4 Chronic kidney disease, stage 4 (severe) (principal); Z94.0 Kidney transplant status; Z79.899 Other long term (current) drug therapy; Z29.8 Encounter for other specified prophylactic measures
CPT/HCPCS: 36415; 80053; 80197; 81003; 81015; 82465; 82565; 83735; 84100; 84156; 84550; 85025

== ENCOUNTER 2021-03-04 03:27 | Outpatient (CLI) | payer MEDICARE, OTHER, SELFPAY ==
[2021-03-04 13:11] LABS: Abs Immature Grans 0.02 10^3/uL (0.0-0.06); Absolute Basophil Count 0.06 10^3/uL (0.0-0.2); Absolute Eosinophil Count 0.38 10^3/uL (0.0-0.7); Absolute Lymphocyte Count 2.05 10^3/uL (1.2-3.4); Absolute Monocyte Count 0.65 10^3/uL (0.1-0.8); Absolute Neutrophil Count 4.48 10^3/uL (1.2-6.7); Basophils % 0.8; HCT 28.7 % (40.0-50.0); Immature Grans % 0.3; Lymphocytes % 26.8; MCH 30.4 pg (27.0-33.0); MCHC 31.4 % (32.0-36.0); MPV 8.2 fL (8.0-11.0); Monocytes % 8.5; Neutrophils % 58.6; Nucleated RBC 0 %; Platelet Count 219 10^3/uL (130-400); RBC 2.96 10^6/uL (4.36-5.78); RDW-SD 48.9 fL; WBC 7.64 10^3/uL (4.4-10.8)
== END 2021-03-04 03:28 | disposition home or self-care (01) ==
LOC: LBO 03:27
PROVIDERS: PCP Family Medicine; Visit Provider Internal Medicine Hematology & Oncology
DX: N18.4 Chronic kidney disease, stage 4 (severe) (principal); D63.1 Anemia in chronic kidney disease; Z94.0 Kidney transplant status
CPT/HCPCS: 36415; 85025

== ENCOUNTER 2021-03-21 19:37 | Day surgery (SDC) | payer MEDICARE, OTHER, SELFPAY ==
[2021-03-21] VITALS (22 sets, daily range): BP systolic 121–159; BP diastolic 41–75; PULSE 40–75; RESP 14–20; TEMP 36.6–36.8; TEMPC 36.8; O2SAT 96–100; BMI 33.0
[2021-03-21] MEDS: Simethicone/Sod Bicarb/Cit Ac, 4 gram PACKET 1 PACKET PO (19:57)
[2021-03-21] MEDS: Glucagon 1 MG VIAL 3 MG IVP (20:20)
[2021-03-21] MEDS: diazePAM 10 MG/2 ML SYR 5 MG IVP (20:20)
--- NOTE | 2021-03-21 20:33 | ED.GENADUL_ITS ---
Discharge Plan Disposition Patient Disposition: [facility] DAY SURGERY [facility] Condition: Stable Discharge Details Clinical Impression: Food impaction of esophagus Primary Care Provider: Violetta Sanford ED Provider: [place] Meds and New Rx's Prescriptions: Continued folic acid 1 mg tablet 1 mg PO DAILY RF: 0 aspirin [Aspirin Low Dose] 81 MG tablet,delayed release (DR/EC) 81 mg PO DAILY RF: 0 omeprazole [Prilosec] 40 MG capsule,delayed release(DR/EC) 40 mg PO DAILY RF: 0 montelukast 10 MG tablet 10 mg PO DAILY RF: 0 multivitamin [Daily Multi-Vitamin] 1 EACH tablet 1 ea PO DAILY RF: 0 hydralazine 100 mg tablet 100 mg PO TID RF: 0 metoprolol succinate 50 mg tablet extended release 24 hr 50 mg PO BID RF: 0 guaifenesin 200 mg tablet 200 mg PO Q4H RF: 0 fluticasone propionate 50 mcg/actuation spray,suspension 1 spray intranasal DAILY RF: 0 vitamin B complex [B Complex-Vitamin B12] Tablet 1 tab PO BID RF: 0 tacrolimus [Prograf] 1 mg capsule 1 mg PO Q12H RF: 0 cholecalciferol (vitamin D3) [Vitamin D3] 2,000 UNIT tablet 2,000 unit PO DAILY RF: 0 fluticasone propionate 16 GM spray,suspension 2 spry NS DAILY PRNRF: 0 albuterol sulfate [Ventolin HFA] 90 mcg/actuation Hfa Aerosol Inhaler 90 mcg Inhalation 4-6XD RF: 0 mycophenolate mofetil [CellCept] 250 mg Capsule 500 mg PO BID RF: 0 ipratropium-albuterol 0.5 mg-3 mg(2.5 mg base)/3 mL Solution For Nebulization 3 ml UPD Q6H Qty: 0 RF: 0 tacrolimus 0.5 mg Capsule 1 mg PO DAILY Qty: 0 RF: 0 insulin aspart U-100 [Novolog Flexpen U-100 Insulin] 100 unit/mL Insulin Pen 0 units subcut 0800,1200,1700 Qty: 0 RF: 0 atorvastatin [Lipitor] 20 MG tablet 1 tab PO DAILY RF: 0 primidone 50 mg Tablet 50 mg PO BID RF: 0 Victoza 2-Nigel 0.6 mg/0.1 mL (18 mg/3 mL) Pen Injector 1.2 mg SUBCUT QDAY RF: 0 Levemir FlexTouch U-100 Insuln 100 unit/mL (3 mL) insulin pen 55 units subcut BID RF: 0 amlodipine 5 mg Tablet 5 mg PO DAILY Qty: 30 RF: 2 Discharge Instructions Additional Instructions: Findings: Follow up: Please call if you develop: fevers >101.5 Nausea or Vomiting Abdominal pain that is not transient Rectal bleeding that is more then a tbsp A hard abdomen and inability to pass gas DAY SURGERY UNIT POST ENDOSCOPY INSTRUCTIONS Instructions for everyone who is given Anesthesia: For your safety, please do the following for the next 24 Hours: a. Do not drive or operate dangerous equipment b. Do not drink alcohol beverages or use any recreational drugs for the first 24 hours or while taking pain medications. The medications in your body may have a reaction that can be dangerous. c. Do not make any important decisions or sign any important papers 1. Generally there are no restrictions on your activity after a day or so has gone by, but you may feel a bit fatigued for a few days. 2. After you arrive home you may have a light meal and return to a normal diet as you can tolerate it without feeling sick to your stomach. 3. After surgery, you may feel pain or discomfort. This should be only transient, but if it persists please contact your doctor. 4. If there are any questions regarding the findings of your procedure, please feel free to contact your doctor. 6. If you are unable to contact your doctor with a problem, contact the hospital at [phone]. 7. Continue all your regular medications unless directed otherwise. I understand the above instructions and have no questions. Signature of Patient or Responsible Adult Escort Date/Time Name of Responsible Adult Escort Signature of Nurse Date/Time Medical Decision Making This is a 65-year-old gentleman with multiple comorbidities presenting for an esophageal food bolus. Patient is able to speak in full sentences and is in no respiratory distress. He is unable to manage his own secretions. Will first attempt EZ effervescence granules. Upon reassessment patient without any improvement. Will now establish IV access, give glucagon and Valium. Patient once again tried to tolerate EZ effervescent granules without success. He was observed in the ER for over an hour and a half with multiple attempts a ttempting to tolerate p.o. water, unsuccessful. At this point contacted our surgical team, Dr. Dominguez. Will obtain Covid swab and she will bring the patient to the OR Medical Records Medical records reviewed: Yes I reviewed the patient's medical records. HPI General Mode of arrival: ambulatory . Date/Time Provider Initiated Documentation: 03/21/21 19:49 . Limitations to Documentation: no limitations . Information obtained by: patient and family . HPI Narrative: This is a 65-year-old gentleman, past medical history that includes anxiety, depression, COPD, diabetes, GERD, hypertension, anemia, obesity, renal transplant, bilateral below the knee amputation, presenting to the ER today for esophageal food bolus. He states that just prior to arrival he was eating a fried chicken breast, only has lower teeth, tooth as well as he could, but noticed that the chicken was stuck. He states that he has been having this recurrent problem for about a year now, ended up in the ER back in November for similar episode but eventually passed without surgical intervention. Patient denies difficulty speaking or breathing. Reports that he is unable to swallow even liquids, spitting up his own saliva. Reports that he has throat pressure but denies any chest pain, shortness of breath, abdominal pain, nausea or vomiting no additional questions or concerns at this time Related Data Home Medications Medication Instructions Recorded Confirmed aspirin [Aspirin Low Dose] 81 mg PO DAILY 10/31/12 03/21/21 montelukast 10 mg PO DAILY tab-cap 10/31/12 03/21/21 omeprazole [Prilosec] 40 mg PO DAILY 10/31/12 03/21/21 multivitamin [Daily Multi-Vitamin] 1 ea PO DAILY 05/10/13 03/21/21 cholecalciferol (vitamin D3) 2,000 unit PO DAILY 01/16/16 03/21/21 [Vitamin D3] fluticasone propionate 2 spry NS DAILY PRN 01/16/16 03/21/21 atorvastatin [Lipitor] 1 tab PO DAILY 02/01/17 03/21/21 albuterol sulfate [Ventolin HFA] 90 mcg INHALATION 4-6XD 05/04/18 03/21/21 folic acid 1 mg tablet 1 mg PO DAILY 06/12/18 03/21/21 mycophenolate mofetil [CellCept] 500 mg PO BID 11/12/18 03/21/21 insulin aspart U-100 [Novolog 0 units SUBCUT 0800,1200,1700 #0 ml 11/15/18 03/21/21 Flexpen U-100 Insulin] ipratropium-albuterol 3 ml UPD Q6H #0 ml 11/15/18 03/21/21 tacrolimus 1 mg PO DAILY #0 cap 11/15/18 03/21/21 Levemir FlexTouch U-100 Insuln 55 units SUBCUT BID 08/03/19 03/21/21 Victoza 2-Nigel 1.2 mg SUBCUT QDAY 08/03/19 03/21/21 primidone 50 mg PO BID 08/03/19 03/21/21 amlodipine 5 mg PO DAILY #30 tab 08/06/19 03/21/21 fluticasone propionate 50 1 spray INTRANASAL DAILY 09/04/20 03/21/21 mcg/actuation nasal spray,suspension guaifenesin 200 mg tablet 200 mg PO Q4H 09/04/20 12/06/20 hydralazine 100 mg tablet 100 mg PO TID tab 09/04/20 03/21/21 metoprolol succinate 50 mg 50 mg PO BID 09/04/20 03/21/21 tablet,extended release 24 hr tacrolimus 1 mg capsule, 1 mg PO Q12H 09/04/20 03/21/21 immediate-release vitamin B complex 1 tab PO BID 09/04/20 03/21/21 Previous Rx's Medication Instructions Recorded insulin aspart U-100 [Novolog 0 units SUBCUT 0800,1200,1700 #0 ml 11/15/18 Flexpen U-100 Insulin] ipratropium-albuterol 3 ml UPD Q6H #0 ml 11/15/18 tacrolimus 1 mg PO DAILY #0 cap 11/15/18 amlodipine 5 mg PO DAILY #30 tab 08/06/19 Allergies Allergy/AdvReac Type Severity Reaction Status Date / Time levofloxacin Allergy Mild Unknown Unverified 03/21/21 19:43 sulfamethoxazole Allergy Mild Unknown Unverified 03/21/21 19:43 [From Bactrim] trimethoprim [From Bactrim] Allergy Mild Unknown Unverified 03/21/21 19:43 doxycycline Allergy Unknown Verified 03/21/21 19:43 clindamycin Allergy Skin Rash Verified 03/21/21 19:43 ibuprofen Allergy Verified 03/21/21 19:43 Penicillins Allergy SWELLING Verified 03/21/21 19:43 tree nut Allergy Verified 03/21/21 19:43 lisinopril AdvReac KIDNEY Verified 03/21/21 19:43 SHUT DOWN yaneth inhibitors Allergy Mild Skin Rash Uncoded 03/21/21 19:43 CATS & BIRDS AdvReac Intermediate WHEEZING Uncoded 03/21/21 19:43 General Stated Complaint: ThroatFB RADHA: 3 Review of Systems All systems reviewed & are unremarkable except as noted in HPI and below Cardiovascular Cardiovascular: Denies chest pain and Denies dyspnea Respiratory Respiratory: Denies cough and Denies dyspnea Gastrointestinal Gastrointestinal: Denies abdominal pain, Denies nausea and Denies vomiting Integumentary/Breasts Skin/Breast: Denies rash PFSH Medical History Adenomatous colon polyp Anxiety and depression Atrial fibrillation COPD (chronic obstructive pulmonary disease) Diabetes mellitus Erectile dysfunction Gastroparesis diabeticorum GERD (gastroesophageal reflux disease) History of colon polyps HTN (hypertension) Hydrocele Hyperlipidemia Intention tremor LEFT FOREARM AV FISTULA Lumbar back pain Macrocytic anemia Obesity MELISSA (obstructive sleep apnea) Personal history of allergy to other antibiotic agent Sciatica Stage 3 severe COPD by GOLD classification Tremor Tricuspid insufficiency Vitamin B 12 deficiency Surgical History Colonoscopy - MAC (02/01/17) EGD - MAC (04/02/16) History of below-knee amputation of both lower extremities 2010 History of colonoscopy (~10/2020) Hx of amputation below knee Kidney transplant recipient 2005 Kidney transplant recipient Family History Brother Personal history of malignant neoplasm Social History Smoking/Tobacco Use Status: Former Tobacco Use Quit Date: 07/25/90 Smoking risk assessment performed?: Yes Alcohol Intake: never Drug use: Never Substance use type: does not use Do you feel safe at home: Yes Do you feel safe in your relationship?: Yes Exam Const General: cooperative, in distress, anxious and ill appearing chronically Orientation: alert and awake HENMT Head: normal to inspection, normocephalic and atraumatic Face and sinus: normal facial exam Mouth: moist mucous membranes Throat: posterior oropharynx normal Eyes General: appearance normal, both eyes and all related structures Conjunctivae: conjunctivae normal Neck Neck: normal visual inspection, full ROM, trachea midline and supple Resp Effort & Inspection: normal respiratory effort and able to speak in complete sentences Auscultation: clear to auscultation bilaterally Cardio Rate: regular rate Rhythm: regular rhythm GI Palpation: soft and nontender Auscultation: normal bowel sounds Skin General skin exam: no rashes or lesions noted Neuro General: patient alert, patient awake, moves all extremities and no focal motor deficits Sensory Exam: no sensory deficits noted Psych Appearance: grossly normal Mental Status: mental status grossly normal Course Vital Signs Vital signs: Vital Signs Temperature 36.6 C 03/21/21 19:39 Pulse 72 03/21/21 19:39 Respiratory Rate 16 03/21/21 19:39 Blood Pressure 159/55 H 03/21/21 19:39 Pulse Oximetry 99 03/21/21 19:39 Temperature 36.6 C 03/21/21 19:39 Temperature Source Skin 03/21/21 19:39 Pulse 72 03/21/21 19:39 Respiratory Rate 16 03/21/21 19:39 Respiratory Effort Non-Labored 03/21/21 19:47 Respiratory Pattern Normal 03/21/21 19:47 Blood Pressure 159/55 H 03/21/21 19:39 Blood Pressure Position Sitting 03/21/21 19:39 Pulse Oximetry 99 03/21/21 19:39 Oxygen Delivery Method Room Air 03/21/21 19:39 Oxygen Flow Rate 0 03/21/21 19:39
[2021-03-21 21:23] LABS: Source Nasal/Nares
--- NOTE | 2021-03-21 22:13 | HPE_ITS ---
Date of service: 03/21/21 Time of Service: 22:13 Assessment and Plan Assessment and plan (1) Esophageal foreign body: Status: Acute Assessment and plan: Discussed procedure under general anesthesia for removal of foreign body. Risks, benefits and complications were reviewed. Complications include but are not limited to bleeding, pain, perforation of the esophagus or stomach, injury to uvula, and anesthesia risks of [place], CVA. Questions were entertained and answered to his satisfaction and he wished to proceed. No guarantees were given or implied. Proceed with EGD and foreign body removal History of Present Illness History of Present Illness Chief Complaint: Foreign body in the esophagus Co nsults Consult date: 03/21/21 Requesting physician: Cheikh Camp Narrative: This is a 65-year-old gentleman, past medical history that includes anxiety, depression, COPD, diabetes, GERD, hypertension, anemia, obesity, renal transplant, bilateral below the knee amputation, who presented to the ER today for esophageal food bolus. He states that just prior to arrival he was eating a fried chicken breast, only has lower teeth, but noticed that the chicken was stuck. He states that he has been having this recurrent problem for about a year now, ended up in the ER back in November for similar episode but eventually passed without surgical intervention. Patient denies difficulty speaking or breathing. Reports that he is unable to swallow even liquids, spitting up his own saliva. Reports that he has throat pressure but denies any chest pain, shortness of breath, abdominal pain, nausea or vomiting. EZ effervescence granules were attempted x2 as well as glucagon without resolution of the impaction. The patient has a history of GERD and has been on Omeprazole 40 mg daily for some time. He denies breakthrough GERD symptoms Review of Systems Constitutional Constitutional: Denies fever(s), Denies headache(s) and Denies weight loss Eyes Eyes: Denies change in vision ENT Ears, Nose, Mouth, and Throat: Reports system reviewed and no additional complaints, except as documented, Reports dysphagia and Denies headache(s) Cardiovascular Cardiovascular: Reports system reviewed and no additional complaints, except as documented, Denies chest pain, Denies chest pain at rest, Denies irregular heart rhythm, Denies dyspnea and Denies dyspnea on exertion Respiratory Respiratory: Reports system reviewed and no additional complaints, except as documented, Denies cough, Denies dyspnea and Denies dyspnea on exertion Gastrointestinal Gastrointestinal: Reports as per HPI and Reports dysphagia Genitourinary Genitourinary: Reports system reviewed and no additional complaints, except as documented, Denies dysuria, Denies urinary incontinence and Denies urinary urgency Musculoskeletal Musculoskeletal: Reports system reviewed and no additional complaints, except as documented Integumentary/Breasts Skin/Breast: Reports system reviewed and no additional complaints, except as documented Neurologic Neurologic: Reports system reviewed and no additional complaints, except as documented and Denies headache(s) Psychiatric Psychiatric: Reports system reviewed and no additional complaints, except as documented Endocrine Endocrine: Reports system reviewed and no additional complaints, except as documented Hematologic/Lymphatic Hematologic/Lymphatic: Denies easy bruising and Denies lymphadenopathy [facility] Medical History Adenomatous colon polyp Anxiety and depression Atrial fibrillation COPD (chronic obstructive pulmonary disease) Diabetes mellitus Erectile dysfunction Gastroparesis diabeticorum GERD (gastroesophageal reflux disease) History of colon polyps HTN (hypertension) Hydrocele Hyperlipidemia Intention tremor LEFT FOREARM AV FISTULA Lumbar back pain Macrocytic anemia Obesity MELISSA (obstructive sleep apnea) Personal history of allergy to other antibiotic agent Sciatica Stage 3 severe COPD by GOLD classification Tremor Tricuspid insufficiency Vitamin B 12 deficiency Surgical History Colonoscopy - MAC (02/01/17) EGD - MAC (04/02/16) History of below-knee amputation of both lower extremities 2010 History of colonoscopy (~10/2020) Hx of amputation below knee Kidney transplant recipient 2005 Kidney transplant recipient Family History Brother Personal history of malignant neoplasm Social History Smoking/Tobacco Use Status: Former Tobacco Use Quit Date: 07/25/90 Smoking risk assessment performed?: Yes Alcohol Intake: never Drug use: Never Substance use type: does not use Do you feel safe at home: Yes Do you feel safe in your relationship?: Yes Meds Allergies and Home Medications Allergies Allergy/AdvReac Type Severity Reaction Status Date / Time levofloxacin Allergy Mild Unknown Unverified 03/21/21 19:43 sulfamethoxazole Allergy Mild Unknown Unverified 03/21/21 19:43 [From Bactrim] trimethoprim [From Bactrim] Allergy Mild Unknown Unverified 03/21/21 19:43 doxycycline Allergy Unknown Verified 03/21/21 19:43 clindamycin Allergy Skin Rash Verified 03/21/21 19:43 ibuprofen Allergy Verified 03/21/21 19:43 Penicillins Allergy SWELLING Verified 03/21/21 19:43 tree nut Allergy Verified 03/21/21 19:43 lisinopril AdvReac KIDNEY Verified 03/21/21 19:43 SHUT DOWN yaneth inhibitors Allergy Mild Skin Rash Uncoded 03/21/21 19:43 CATS & BIRDS AdvReac Intermediate WHEEZING Uncoded 03/21/21 19:43 Home Medications Medication Instructions Recorded Confirmed Type aspirin [Aspirin Low Dose] 81 mg PO DAILY 10/31/12 03/21/21 History montelukast 10 mg PO DAILY tab-cap 10/31/12 03/21/21 History omeprazole [Prilosec] 40 mg PO DAILY 10/31/12 03/21/21 History multivitamin [Daily Multi-Vitamin] 1 ea PO DAILY 05/10/13 03/21/21 History cholecalciferol (vitamin D3) 2,000 unit PO DAILY 01/16/16 03/21/21 History [Vitamin D3] fluticasone propionate 2 spry NS DAILY PRN 01/16/16 03/21/21 History atorvastatin [Lipitor] 1 tab PO DAILY 02/01/17 03/21/21 History albuterol sulfate [Ventolin HFA] 90 mcg INHALATION 4-6XD 05/04/18 03/21/21 History folic acid 1 mg tablet 1 mg PO DAILY 06/12/18 03/21/21 History mycophenolate mofetil [CellCept] 500 mg PO BID 11/12/18 03/21/21 History insulin aspart U-100 [Novolog 0 units SUBCUT 0800,1200,1700 #0 ml 11/15/18 03/21/21 Rx Flexpen U-100 Insulin] ipratropium-albuterol 3 ml UPD Q6H #0 ml 11/15/18 03/21/21 Rx tacrolimus 1 mg PO DAILY #0 cap 11/15/18 03/21/21 Rx Levemir FlexTouch U-100 Insuln 55 units SUBCUT BID 08/03/19 03/21/21 History Victoza 2-Nigel 1.2 mg SUBCUT QDAY 08/03/19 03/21/21 History primidone 50 mg PO BID 08/03/19 03/21/21 History amlodipine 5 mg PO DAILY #30 tab 08/06/19 03/21/21 Rx fluticasone propionate 50 1 spray INTRANASAL DAILY 09/04/20 03/21/21 History mcg/actuation nasal spray,suspension guaifenesin 200 mg tablet 200 mg PO Q4H 09/04/20 12/06/20 History hydralazine 100 mg tablet 100 mg PO TID tab 09/04/20 03/21/21 History metoprolol succinate 50 mg 50 mg PO BID 09/04/20 03/21/21 History tablet,extended release 24 hr tacrolimus 1 mg capsule, 1 mg PO Q12H 09/04/20 03/21/21 History immediate-release vitamin B complex 1 tab PO BID 09/04/20 03/21/21 History Exam Const General: cooperative, comfortable and no acute distress Orientation: alert and oriented x3 HENMT Head: normocephalic and atraumatic Resp Effort & Inspection: normal respiratory effort Auscultation: clear to auscultation bilaterally Cardio Rate: regular rate Rhythm: regular rhythm Heart Sounds: no gallops, no murmurs and no rubs GI Palpation: soft, no hepatosplenomegaly and nontender Auscultation: normal bowel sounds Results Labs Labs: Laboratory Results - last 24 hr 03/21/21 21:15 COVID-19 Source Nasal/Nares Last Vital Signs Temp 97.9 F 03/21/21 19:39 Pulse 65 03/21/21 22:01 Resp 16 03/21/21 21:19 BP 137/50 L 03/21/21 22:01 Pulse Ox 96 03/21/21 21:40
--- NOTE | 2021-03-21 22:19 | ANES.PREOP_ITS ---
General Info Date of Service Date Performed: 03/21/21 Height: 6 ft 4 in Weight: 123.377 kg Body Mass Index (BMI): 33.0 Meds Allergies and Home Medications Allergies Allergy/AdvReac Type Severity Reaction Status Date / Time levofloxacin Allergy Mild Unknown Unverified 03/21/21 19:43 sulfamethoxazole Allergy Mild Unknown Unverified 03/21/21 19:43 [From Bactrim] trimethoprim [From Bactrim] Allergy Mild Unknown Unverified 03/21/21 19:43 doxycycline Allergy Unknown Verified 03/21/21 19:43 clindamycin Allergy Skin Rash Verified 03/21/21 19:43 ibuprofen Allergy Verified 03/21/21 19:43 Penicillins Allergy SWELLING Verified 03/21/21 19:43 tree nut Allergy Verified 03/21/21 19:43 lisinopril AdvReac KIDNEY Verified 03/21/21 19:43 SHUT DOWN yaneth inhibitors Allergy Mild Skin Rash Uncoded 03/21/21 19:43 CATS & BIRDS AdvReac Intermediate WHEEZING Uncoded 03/21/21 19:43 Home Medication Medication Instructions Recorded aspirin [Aspirin Low Dose] 81 mg PO DAILY 10/31/12 montelukast 10 mg PO DAILY tab-cap 10/31/12 omeprazole [Prilosec] 40 mg PO DAILY 10/31/12 multivitamin [Daily Multi-Vitamin] 1 ea PO DAILY 05/10/13 cholecalciferol (vitamin D3) 2,000 unit PO DAILY 01/16/16 [Vitamin D3] fluticasone propionate 2 spry NS DAILY PRN 01/16/16 atorvastatin [Lipitor] 1 tab PO DAILY 02/01/17 albuterol sulfate [Ventolin HFA] 90 mcg INHALATION 4-6XD 05/04/18 folic acid 1 mg tablet 1 mg PO DAILY 06/12/18 mycophenolate mofetil [CellCept] 500 mg PO BID 11/12/18 insulin aspart U-100 [Novolog 0 units SUBCUT 0800,1200,1700 #0 ml 11/15/18 Flexpen U-100 Insulin] ipratropium-albuterol 3 ml UPD Q6H #0 ml 11/15/18 tacrolimus 1 mg PO DAILY #0 cap 11/15/18 Levemir FlexTouch U-100 Insuln 55 units SUBCUT BID 08/03/19 Victoza 2-Nigel 1.2 mg SUBCUT QDAY 08/03/19 primidone 50 mg PO BID 08/03/19 amlodipine 5 mg PO DAILY #30 tab 08/06/19 fluticasone propionate 50 1 spray INTRANASAL DAILY 09/04/20 mcg/actuation nasal spray,suspension guaifenesin 200 mg tablet 200 mg PO Q4H 09/04/20 hydralazine 100 mg tablet 100 mg PO TID tab 09/04/20 metoprolol succinate 50 mg 50 mg PO BID 09/04/20 tablet,extended release 24 hr tacrolimus 1 mg capsule, 1 mg PO Q12H 09/04/20 immediate-release vitamin B complex 1 tab PO BID 09/04/20 Current Visit Medications: Current Medications Generic Name Dose Route Start Last Admin Trade Name Freq PRN Reason Stop Dose Admin IV Miscellaneous Supplies 1 each 03/21/21 20:00 Iv Access IV DIRECTED [facility] Active Problems Active Problems: Problem Status Onset Code Esophageal foreign body T18.108A Food impaction of esophagus T18.128A Macrocytic anemia D53.9 Gastroparesis diabeticorum E11.43, K31.84 Kidney transplant recipient Z94.0 Chronic kidney disease N18.9 Hypertension I10 Hyperlipidemia E78.5 CAD (coronary artery disease) I25.10 GERD (gastroesophageal reflux disease) K21.9 Asthma J45.909 Chronic anxiety F41.9 Chronic depression F32.9 Status post bilateral below knee amputation Z89.512, Z89.511 Intention tremor G25.2 Status post appendectomy Z90.49 Physical medicine and rehabilitation procedures 06/27/13 [id number] Dysphagia R13.10 Infection of amputation stump of right lower extremity T87.43 Hyperkalemia E87.5 CHF (congestive heart failure) I50.9 Diastolic CHF I50.30 CAP (community acquired pneumonia) J18.9 Acute kidney injury superimposed on chronic kidney disease N17.9, N18.9 Uncontrolled insulin dependent diabetes mellitus E11.65, Z79.4 Ambulatory dysfunction R26.2 Discharge planning issues Z02.9 DVT prophylaxis Sepsis A41.9 MELISSA (obstructive sleep apnea) G47.33 Left lower lobe pneumonia J18.9 Wenckebach second degree AV block I44.1 Fluid level behind tympanic membrane of left ear H65.92 Sensory hearing loss, bilateral H90.3 Tinnitus, bilateral H93.13 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 Atrial fibrillation I48.91 Kidney transplant recipient Z94.0 Medical History Medical History Adenomatous colon polyp Anxiety and depression Atrial fibrillation COPD (chronic obstructive pulmonary disease) Diabetes mellitus Erectile dysfunction Gastroparesis diabeticorum GERD (gastroesophageal reflux disease) History of colon polyps HTN (hypertension) Hydrocele Hyperlipidemia Intention tremor LEFT FOREARM AV FISTULA Lumbar back pain Macrocytic anemia Obesity MELISSA (obstructive sleep apnea) Personal history of allergy to other antibiotic agent Sciatica Stage 3 severe COPD by GOLD classification Tremor Tricuspid insufficiency Vitamin B 12 deficiency Surgical History Surgical History Colonoscopy - MAC (02/01/17) EGD - MAC (04/02/16) History of below-knee amputation of both lower extremities 2010 History of colonoscopy (~10/2020) Hx of amputation below knee Kidney transplant recipient 2005 Kidney transplant recipient Tobacco Smoking/Tobacco Use Status: Former Tobacco Use Alcohol Alcohol Intake: never Substance Use Substance use: Never Substance use type: does not use Vital Signs and Lab Results Vital Signs Most Recent Vital Signs in EMR: Most Recent Vital Signs Temp Pulse Resp BP Pulse Ox 36.6 C 65 16 137/50 L 98 03/21/21 19:39 03/21/21 22:01 03/21/21 21:19 03/21/21 22:01 03/21/21 22:10 Lab Results Blood Type / Crossmatch: No Data to Display Complete Blood Count: White Blood Count 7.64 10^3/uL (4.4-10.8) 03/04/21 12:57 03/04/21 Red Blood Count 2.96 10^6/uL (4.36-5.78) L 03/04/21 12:57 03/04/21 Hemoglobin 9.0 g/dL (13.5-17.5) L 03/04/21 12:57 03/04/21 Hematocrit 28.7 % (40.0-50.0) L 03/04/21 12:57 03/04/21 Platelet Count 219 10^3/uL (130-400) 03/04/21 12:57 03/04/21 Complete Metabolic Panel: No Data to Display Liver Function Panel: No Data to Display Coagulation Panel: No Data to Display Cardiac Panel: No Data to Display Arterial Blood Gas: No Data to Display Venous Blood Gas: No Data to Display Pancreas Panel: No Data to Display Thyroid Panel: No Data to Display Infectious Disease: Coronavirus 2019 Source Nasal/Nares 03/21/21 21:15 03/21/21 Blood Cultures: No Data to Display Toxicology Panel: No Data to Display Anesthesia Assessment and Plan Anesthesia History Personal History: No History of Anesthesia Complications Family History: No Family History of Anesthesia Complications Exercise Tolerance Exercise Tolerance: Metabolic Equivalents<4 Pertinent Negatives Pertinent Negatives: No History of CVA/TIA Cardiac & Pulmonary Exam Cardiac Exam: Normal S1/S2 Heart Sounds Pulmonary Exam: Clear Bilateral Breath Sounds Airway Exam Known Difficult Airway: No Mallampati Class: 2 Mouth Opening: Normal (> 3cm) Thyromental Distance: Greater than 3 cm Neck Range of Motion: Full ROM Neck Circumference: Normal Teeth Condition: Removable Dentures/Plates Upper and Removable Dentures/Plates Lower ASA Classification ASA Score: ASA 4 Emergency Case?: No NPO Status NPO Status: Full Stomach Anesthesia Plan Resuscitation Status: Full Code Anesthesia Technique: General Anesthesia Airway Planned: Endotracheal Tube Monitors Used: Standard Monitors Preoperative Comments:: Failure in COVID processing machine in lab per Dr. Dominguez. She is concerned about the patients airway and his continuous production of saliva and does not want to wait an additional hour to re-run the COVID test. To proceed with N95s.
--- NOTE | 2021-03-21 22:23 | ENDO_ITS ---
Date of service: 03/21/21 Time of Service: 23:30 Endoscopy Report DATE OF PROCEDURE: 03/21/21 PRE-OP DIAGNOSIS: esophageal foreign body POST-OP DIAGNOSIS: same PROCEDURE: egd with removal of foreign body SURGEON: Leah Dominguez ANESTHESIA TYPE: General LMA/ETT ESTIMATED BLOOD LOSS: 0 PATHOLOGY: none sent COMPLICATIONS: None DISPOSITION: PACU INDICATIONS: This is a 65-year-old gentleman with multiple comorbidities present ing for an esophageal food bolus. Patient is able to speak in full sentences and is in no respiratory distress. He is unable to manage his own secretions. EGD with foreign body removal was explained to patient as well as possible complications. PROCEDURE DESCRIPTION: After informed consent was obtained the patient was take to the operating room and placed in a supine position. Monitors were applied and a time out was done. The patients name, date of , procedure type, allergies to medications and metal in their body was reviewed. The pa tient was placed under general anesthesia and intubated without difficulty. Once sedated and comfortable the gastroscope was advanced through the oropharynx which was grossly normal into the esophagus. There was a piece of chicken stuck at the mid esophagus. I was able to gently and easily push it into the stomach. The scope was advanced into the stomach. There was food in the stomach. No ulcer were noted and there was no inflammation. The scope was retracted. There was no inflammation or stricture noted at the GE junction. The scope was removed and the patient was woken up and taken back to PACU in stable condition. Follow up: as needed
--- NOTE | 2021-03-21 22:24 | W.PM.DSUDISC ---
Discharge Plan Disposition Patient Disposition: [facility] DAY SURGERY UNIT Condition: Stable Discharge Details Clinical Impression: Food impaction of esophagus Primary Care Provider: Violetta Sanford ED Provider: Cheikh Camp Home Meds and New Rx's Prescriptions: No Action folic acid 1 mg tablet 1 mg PO DAILY RF: 0 aspirin [Aspirin Low Dose] 81 MG tablet,delayed release (DR/EC) 81 mg PO DAILY RF: 0 omeprazole [Prilosec] 40 MG capsule,delayed release(DR/EC) 40 mg PO DAILY RF: 0 montelukast 10 MG tablet 10 mg PO DAILY RF: 0 multivitamin [Daily Multi-Vitamin] 1 EACH tablet 1 ea PO DAILY RF: 0 hydralazine 100 mg tablet 100 mg PO TID RF: 0 metoprolol succinate 50 mg tablet extended release 24 hr 50 mg PO BID RF: 0 guaifenesin 200 mg tablet 200 mg PO Q4H RF: 0 fluticasone propionate 50 mcg/actuation spray,suspension 1 spray intranasal DAILY RF: 0 vitamin B complex [B Complex-Vitamin B12] Tablet 1 tab PO BID RF: 0 tacrolimus [Prograf] 1 mg capsule 1 mg PO Q12H RF: 0 cholecalciferol (vitamin D3) [Vitamin D3] 2,000 UNIT tablet 2,000 unit PO DAILY RF: 0 fluticasone propionate 16 GM spray,suspension 2 spry NS DAILY PRNRF: 0 albuterol sulfate [Ventolin HFA] 90 mcg/actuation Hfa Aerosol Inhaler 90 mcg Inhalation 4-6XD RF: 0 mycophenolate mofetil [CellCept] 250 mg Capsule 500 mg PO BID RF: 0 ipratropium-albuterol 0.5 mg-3 mg(2.5 mg base)/3 mL Solution For Nebulization 3 ml UPD Q6H Qty: 0 RF: 0 tacrolimus 0.5 mg Capsule 1 mg PO DAILY Qty: 0 RF: 0 insulin aspart U-100 [Novolog Flexpen U-100 Insulin] 100 unit/mL Insulin Pen 0 units subcut 0800,1200,1700 Qty: 0 RF: 0 atorvastatin [Lipitor] 20 MG tablet 1 tab PO DAILY RF: 0 primidone 50 mg Tablet 50 mg PO BID RF: 0 Victoza 2-Nigel 0.6 mg/0.1 mL (18 mg/3 mL) Pen Injector 1.2 mg SUBCUT QDAY RF: 0 Levemir FlexTouch U-100 Insuln 100 unit/mL (3 mL) insulin pen 55 units subcut BID RF: 0 amlodipine 5 mg Tablet 5 mg PO DAILY Qty: 30 RF: 2 Discharge Instructions Additional Instructions: Findings: Follow up: Please call if you develop: fevers >101.5 Nausea or Vomiting Abdominal pain that is not transient Rectal bleeding that is more then a tbsp A hard abdomen and inability to pass gas DAY SURGERY UNIT POST ENDOSCOPY INSTRUCTIONS Instructions for everyone who is given Anesthesia: For your safety, please do the following for the next 24 Hours: a. Do not drive or operate dangerous equipment b. Do not drink alcohol beverages or use any recreational drugs for the first 24 hours or while taking pain medications. The medications in your body may have a reaction that can be dangerous. c. Do not make any important decisions or sign any important papers 1. Generally there are no restrictions on your activity after a day or so has gone by, but you may feel a bit fatigued for a few days. 2. After you arrive home you may have a light meal and return to a normal diet as you can tolerate it without feeling sick to your stomach. 3. After surgery, you may feel pain or discomfort. This should be only transient, but if it persists please contact your doctor. 4. If there are any questions regarding the findings of your procedure, please feel free to contact your doctor. 6. If you are unable to contact your doctor with a problem, contact the hospital at [phone]. 7. Continue all your regular medications unless directed otherwise. I understand the above instructions and have no questions. Signature of Patient or Responsible Adult Escort Date/Time Name of Responsible Adult Escort Signature of Nurse Date/Time DS: Diagnosis Discharge Diagnosis (1) Esophageal foreign body: Status: Acute
--- NOTE | 2021-03-21 22:36 | W.PM.DSUDISC ---
Discharge Plan Disposition Condition: Stable Discharge Details Attending Provider: Leah Dominguez Primary Care Provider: Violetta Sanford [facility] Course Hospital Course: Patient was taken to the OR for EGD. The foreign body was easily pushed into the stomach. There were no issues. Patient was woken up and he was able to go home Home Meds and New Rx's Prescriptions: Continued folic acid 1 mg tablet 1 mg PO DAILY RF: 0 aspirin [Aspirin Low Dose] 81 MG tablet,delayed release (DR/EC) 81 mg PO DAILY RF: 0 omeprazole [Prilosec] 40 MG capsule,delayed release(DR/EC) 40 mg PO DAILY RF: 0 montelukast 10 MG tablet 10 mg PO DAILY RF: 0 multivitamin [Daily Multi-Vitamin] 1 EACH tablet 1 ea PO DAILY RF: 0 hydralazine 100 mg tablet 100 mg PO TID RF: 0 metoprolol succinate 50 mg tablet extended release 24 hr 50 mg PO BID RF: 0 guaifenesin 200 mg tablet 200 mg PO Q4H RF: 0 fluticasone propionate 50 mcg/actuation spray,suspension 1 spray intranasal DAILY RF: 0 vitamin B complex [B Complex-Vitamin B12] Tablet 1 tab PO BID RF: 0 tacrolimus [Prograf] 1 mg capsule 1 mg PO Q12H RF: 0 cholecalciferol (vitamin D3) [Vitamin D3] 2,000 UNIT tablet 2,000 unit PO DAILY RF: 0 fluticasone propionate 16 GM spray,suspension 2 spry NS DAILY PRNRF: 0 albuterol sulfate [Ventolin HFA] 90 mcg/actuation Hfa Aerosol Inhaler 90 mcg Inhalation 4-6XD RF: 0 mycophenolate mofetil [CellCept] 250 mg Capsule 500 mg PO BID RF: 0 ipratropium-albuterol 0.5 mg-3 mg(2.5 mg base)/3 mL Solution For Nebulization 3 ml UPD Q6H Qty: 0 RF: 0 tacrolimus 0.5 mg Capsule 1 mg PO DAILY Qty: 0 RF: 0 insulin aspart U-100 [Novolog Flexpen U-100 Insulin] 100 unit/mL Insulin Pen 0 units subcut 0800,1200,1700 Qty: 0 RF: 0 atorvastatin [Lipitor] 20 MG tablet 1 tab PO DAILY RF: 0 primidone 50 mg Tablet 50 mg PO BID RF: 0 Victoza 2-Nigel 0.6 mg/0.1 mL (18 mg/3 mL) Pen Injector 1.2 mg SUBCUT QDAY RF: 0 Levemir FlexTouch U-100 Insuln 100 unit/mL (3 mL) insulin pen 55 units subcut BID RF: 0 amlodipine 5 mg Tablet 5 mg PO DAILY Qty: 30 RF: 2 Discharge Instructions Instructions: GI (Gastrointestinal) Soft Diet (DC) Additional Instructions: Diet: soft diet for 24 to 48 hours Please call if you develop: fevers >101.5 Nausea or Vomiting Abdominal pain that is not transient Rectal bleeding that is more then a tbsp A hard abdomen and inability to pass gas DAY SURGERY UNIT POST ENDOSCOPY INSTRUCTIONS Instructions for everyone who is given Anesthesia: For your safety, please do the following for the next 24 Hours: a. Do not drive or operate dangerous equipment b. Do not drink alcohol beverages or use any recreational drugs for the first 24 hours or while taking pain medications. The medications in your body may have a reaction that can be dangerous. c. Do not make any important decisions or sign any important papers 1. Generally there are no restrictions on your activity after a day or so has gone by, but you may feel a bit fatigued for a few days. 2. After you arrive home you may have a light meal and return to a normal diet as you can tolerate it without feeling sick to your stomach. 3. After surgery, you may feel pain or discomfort. This should be only transient, but if it persists please contact your doctor. 4. If there are any questions regarding the findings of your procedure, please feel free to contact your doctor. 6. If you are unable to contact your doctor with a problem, contact the hospital at [phone]. 7. Continue all your regular medications unless directed otherwise. I understand the above instructions and have no questions. Signature of Patient or Responsible Adult Escort Date/Time Name of Responsible Adult Escort Signature of Nurse Date/Time Activity:: Activity as Tolerated Activity:: Activity as Tolerated Equipment/Supplies:: No Equipment Needed Diet:: soft diet DS: Diagnosis Discharge Diagnosis (1) Esophageal foreign body: Status: Acute
[2021-03-21] MEDS: Lactated Ringers 1,000 ML 30 ML IV (23:01)
[2021-03-21 23:09] LABS: COVID-19 PCR Negative (Negative)
--- NOTE | 2021-03-21 23:40 | W.ANESPOSTOP ---
Postoperative Evaluation Date, Time and Location Date Performed: 03/21/21 Time Performed: 23:40 Patient Location: Intensive Care Unit Vital Signs Most Recent Imported Vital Signs: Most Recent Vital Signs Temp Pulse Resp BP Pulse Ox 36.6 C 66 16 141/48 H 100 03/21/21 19:39 03/21/21 22:35 03/21/21 21:19 03/21/21 22:35 03/21/21 22:40 Most Recent Manually Entered Vital Signs: Adult Blood Pressure: 133/75 Heart Rate: 75 Respirations: 14 Oxygen Saturation (%): 98 Temperature (C): 36.8 C Pain Score (0-10 Scale): 0 Assessment Mental Status: Awake (Alert & Oriented to Patient Baseline) Airway and Respiratory Function: Patent airway with normal (patient baseline) respiratory exam Cardiovascular Function: Hemodynamically Stable Hydration Status: Adequately Hydrated Nausea & Vomiting: No Nausea or Vomiting Pain: Pt. Denies Any Pain Peripheral Nerve Block: Patient did not receive a nerve block
[2021-03-22] VITALS: PULSE 69; RESP 16; O2SAT 100
[2021-03-22 00:01] VITALS: BP 128/52; PULSE 68; PULSE 70; RESP 23; O2SAT 99
[2021-03-22 00:02] VITALS: BP 128/52; PULSE 68; RESP 18; TEMP 37.1; O2SAT 98
[2021-03-22 00:10] VITALS: PULSE 61; RESP 17; O2SAT 98
[2021-03-22 00:16] VITALS: BP 126/52; PULSE 64; PULSE 67; RESP 19; O2SAT 99
[2021-03-22 00:20] VITALS: PULSE 68; RESP 14; O2SAT 100
== END 2021-03-21 23:01 | disposition home or self-care (01) ==
LOC: ER 21:54 → DSU 23:00
PROVIDERS: Emergency Provider Physician Assistant; PCP Family Medicine; Visit Provider Surgery
PROC: 0DC68ZZ Extirpation of Matter from Stomach, Via Natural or Artificial Opening Endoscopic (ICD-10-PCS; CPT 43247; principal; 2021-03-21 22:25)
DX: T18.128A Food in esophagus causing other injury, initial encounter (principal); X58.XXXA Exposure to other specified factors, initial encounter; K21.9 Gastro-esophageal reflux disease without esophagitis; E11.9 Type 2 diabetes mellitus without complications; I10 Essential (primary) hypertension; J44.9 Chronic obstructive pulmonary disease, unspecified; D64.9 Anemia, unspecified; Z20.822 Contact with and (suspected) exposure to COVID-19
CPT/HCPCS: 43215; 87635; 96374; 96375; 99285; J1610; J2001; J3360

== ENCOUNTER 2021-03-25 02:56 | Outpatient (CLI) | payer MEDICARE, OTHER, SELFPAY ==
[2021-03-25 13:01] LABS: Abs Immature Grans 0.02 10^3/uL (0.0-0.06); Absolute Basophil Count 0.03 10^3/uL (0.0-0.2); Absolute Eosinophil Count 0.25 10^3/uL (0.0-0.7); Absolute Monocyte Count 0.53 10^3/uL (0.1-0.8); Absolute Neutrophil Count 4.81 10^3/uL (1.2-6.7); Basophils % 0.4; Eosinophils % 3.3; HCT 28.8 % (40.0-50.0); HGB 8.8 g/dL (13.5-17.5); Immature Grans % 0.3; Lymphocytes % 25.2; MCH 29.6 pg (27.0-33.0); MCHC 30.6 % (32.0-36.0); MPV 8.1 fL (8.0-11.0); Neutrophils % 63.8; Nucleated RBC 0 %; Platelet Count 182 10^3/uL (130-400); RBC 2.97 10^6/uL (4.36-5.78); RDW 13.7 % (11.8-14.1); RDW-SD 48.4 fL; WBC 7.54 10^3/uL (4.4-10.8)
== END 2021-03-25 02:57 | disposition home or self-care (01) ==
LOC: LBO 02:56
PROVIDERS: PCP Family Medicine; Visit Provider Internal Medicine Hematology & Oncology
DX: N18.4 Chronic kidney disease, stage 4 (severe) (principal); D63.1 Anemia in chronic kidney disease; Z94.0 Kidney transplant status
CPT/HCPCS: 36415; 85025

== ENCOUNTER 2021-04-14 20:41 | Outpatient (REF) | payer MEDICARE, OTHER, SELFPAY | END 2021-04-14 20:42 | disposition home or self-care (01) | LOC: NCHCN 20:41 | PROVIDERS: PCP Family Medicine; Visit Provider Physician Assistant | DX: L02.91 Cutaneous abscess, unspecified (principal) | CPT/HCPCS: 87070; 87205 ==

== ENCOUNTER 2021-04-15 12:10 | Outpatient (CLI) | payer MEDICARE, OTHER, SELFPAY ==
[2021-04-15 13:19] LABS: Abs Immature Grans 0.05 10^3/uL (0.0-0.06); Absolute Basophil Count 0.06 10^3/uL (0.0-0.2); Absolute Eosinophil Count 0.33 10^3/uL (0.0-0.7); Absolute Lymphocyte Count 1.96 10^3/uL (1.2-3.4); Absolute Monocyte Count 0.85 10^3/uL (0.1-0.8); Absolute Neutrophil Count 5.91 10^3/uL (1.2-6.7); Basophils % 0.7; Eosinophils % 3.6; HCT 27.1 % (40.0-50.0); HGB 8.3 g/dL (13.5-17.5); Immature Grans % 0.5; Lymphocytes % 21.4; MCH 29.9 pg (27.0-33.0); MCHC 30.6 % (32.0-36.0); MCV 97.5 fL (80-95); MPV 8.2 fL (8.0-11.0); Monocytes % 9.3; Neutrophils % 64.5; Nucleated RBC 0 %; Platelet Count 183 10^3/uL (130-400); RBC 2.78 10^6/uL (4.36-5.78); RDW 13.5 % (11.8-14.1); RDW-SD 48.2 fL; WBC 9.16 10^3/uL (4.4-10.8)
== END 2021-04-15 12:11 | disposition home or self-care (01) ==
LOC: LBO 04-22 12:12
PROVIDERS: PCP Family Medicine; Visit Provider Internal Medicine Hematology & Oncology
DX: N18.4 Chronic kidney disease, stage 4 (severe) (principal); D63.1 Anemia in chronic kidney disease; Z94.0 Kidney transplant status
CPT/HCPCS: 36415; 85025

== ENCOUNTER 2021-05-06 04:11 | Outpatient (CLI) | payer MEDICARE, OTHER, SELFPAY ==
[2021-05-06 13:36] LABS: Abs Immature Grans 0.02 10^3/uL (0.0-0.06); Absolute Basophil Count 0.03 10^3/uL (0.0-0.2); Absolute Eosinophil Count 0.16 10^3/uL (0.0-0.7); Absolute Lymphocyte Count 1.82 10^3/uL (1.2-3.4); Absolute Monocyte Count 0.59 10^3/uL (0.1-0.8); Absolute Neutrophil Count 4.69 10^3/uL (1.2-6.7); Basophils % 0.4; Eosinophils % 2.2; HCT 26.4 % (40.0-50.0); HGB 8.2 g/dL (13.5-17.5); Immature Grans % 0.3; Lymphocytes % 24.9; MCH 30.1 pg (27.0-33.0); MCHC 31.1 % (32.0-36.0); MCV 97.1 fL (80-95); MPV 8.6 fL (8.0-11.0); Monocytes % 8.1; Neutrophils % 64.1; Nucleated RBC 0 %; Platelet Count 199 10^3/uL (130-400); RBC 2.72 10^6/uL (4.36-5.78); RDW 13.6 % (11.8-14.1); RDW-SD 48.5 fL; WBC 7.31 10^3/uL (4.4-10.8)
[2021-05-06 14:03] LABS: Diff Comment RBC Morph Reviewed; RBC Morphology Normal
[2021-05-06 14:44] LABS: ALT 20 U/L (16-63); AST 12 U/L (15-37); Albumin 3.1 g/dL (3.4-5.0); Alkaline Phosphatase 109 U/L (46-116); BUN 50 mg/dL (7-18); Bilirubin, Total 0.2 mg/dL (0.2-1.0); Calcium 9.6 mg/dL (8.5-10.1); Chloride 108 mmol/L (98-107); Estimated GFR 15.05 (mL/min/1.73m2); Glucose 227 mg/dL (74-106); Magnesium 1.7 mg/dL (1.8-2.4); PHOSPHORUS 4.3 mg/dL (2.6-4.7); Potassium 4.8 mmol/L (3.5-5.1); Sodium 141 mmol/L (136-145); Total Protein 7.3 g/dL (6.4-8.2); Uric Acid 7.6 mg/dL (3.5-7.2)
[2021-05-06 14:46] LABS: Cholesterol 95 mg/dL (<200)
[2021-05-07 13:30] LABS: Tacrolimus 3.6 ng/mL (See Note)
== END 2021-05-06 04:12 | disposition home or self-care (01) ==
LOC: LBO 04:11
PROVIDERS: PCP Family Medicine; Visit Provider Internal Medicine Hematology & Oncology
DX: Z94.0 Kidney transplant status (principal); N18.4 Chronic kidney disease, stage 4 (severe); Z79.899 Other long term (current) drug therapy; D63.1 Anemia in chronic kidney disease
CPT/HCPCS: 36415; 80053; 80197; 82465; 83735; 84100; 84550; 85025

== ENCOUNTER 2021-05-27 03:15 | Outpatient (CLI) | payer MEDICARE, OTHER, SELFPAY ==
[2021-05-27 12:02] LABS: Abs Immature Grans 0.01 10^3/uL (0.0-0.06); Absolute Basophil Count 0.04 10^3/uL (0.0-0.2); Absolute Eosinophil Count 0.21 10^3/uL (0.0-0.7); Absolute Lymphocyte Count 1.68 10^3/uL (1.2-3.4); Absolute Monocyte Count 0.53 10^3/uL (0.1-0.8); Basophils % 0.6; Eosinophils % 3.4; HCT 28.2 % (40.0-50.0); HGB 8.5 g/dL (13.5-17.5); Immature Grans % 0.2; Lymphocytes % 27.2; MCH 29.5 pg (27.0-33.0); MCHC 30.1 % (32.0-36.0); MCV 97.9 fL (80-95); MPV 8.2 fL (8.0-11.0); Monocytes % 8.6; Nucleated RBC 0 %; Platelet Count 171 10^3/uL (130-400); RBC 2.88 10^6/uL (4.36-5.78); RDW-SD 49.9 fL; WBC 6.17 10^3/uL (4.4-10.8)
[2021-05-27 13:43] LABS: Vitamin B12 1129 pg/mL (193-986)
== END 2021-05-27 03:16 | disposition home or self-care (01) ==
LOC: LBO 03:15
PROVIDERS: PCP Family Medicine; Visit Provider Internal Medicine Hematology & Oncology
DX: N18.4 Chronic kidney disease, stage 4 (severe) (principal); D63.1 Anemia in chronic kidney disease; Z94.0 Kidney transplant status; E53.8 Deficiency of other specified B group vitamins
CPT/HCPCS: 36415; 82607; 85025

== ENCOUNTER 2021-06-24 02:31 | Outpatient (CLI) | payer MEDICARE, OTHER, SELFPAY ==
[2021-06-24 13:05] LABS: Abs Immature Grans 0.01 10^3/uL (0.0-0.06); Absolute Basophil Count 0.04 10^3/uL (0.0-0.2); Absolute Eosinophil Count 0.22 10^3/uL (0.0-0.7); Absolute Lymphocyte Count 1.78 10^3/uL (1.2-3.4); Absolute Monocyte Count 0.56 10^3/uL (0.1-0.8); Absolute Neutrophil Count 3.95 10^3/uL (1.2-6.7); Basophils % 0.6; Eosinophils % 3.4; HCT 28.3 % (40.0-50.0); HGB 8.5 g/dL (13.5-17.5); Immature Grans % 0.2; Lymphocytes % 27.1; MCH 29.4 pg (27.0-33.0); MCV 97.9 fL (80-95); MPV 8.1 fL (8.0-11.0); Monocytes % 8.5; Neutrophils % 60.2; Nucleated RBC 0 %; Platelet Count 155 10^3/uL (130-400); RBC 2.89 10^6/uL (4.36-5.78); RDW 14.3 % (11.8-14.1); WBC 6.56 10^3/uL (4.4-10.8)
[2021-06-24 13:12] LABS: Bilirubin Negative (Negative); Blood Negative (Negative); Clarity Clear (Clear); Glucose Negative (Negative); Ketones Negative (Negative); Leukocyte Esterase Negative (Negative); Nitrite Negative (Negative); Urobilinogen 0.2 EU/dL (Up TO 0.2)
[2021-06-24 13:19] LABS: Bacteria Negative HPF (Negative); C & S Indicated? No; Casts 0-2 Hyaline LPF (Negative); Crystals Negative HPF (Negative); Epithelial Cells Rare HPF (Negative); Mucus Negative (Negative); RBC Negative HPF (0-2); WBC Negative HPF (0-5)
[2021-06-24 13:56] LABS: PROTEIN 116.8 mg/dL; Prot/Crea Ur Ratio 1.31
[2021-06-24 14:00] LABS: Cholesterol 92 mg/dL (<200)
[2021-06-24 14:01] LABS: ALT 17 U/L (16-63); AST 11 U/L (15-37); Alkaline Phosphatase 109 U/L (46-116); Anion Gap 8.4 mmol/L (3-11); BUN 46 mg/dL (7-18); Bilirubin, Total 0.3 mg/dL (0.2-1.0); CO2 24.6 mmol/L (21.0-32.0); Calcium 9.4 mg/dL (8.5-10.1); Chloride 107 mmol/L (98-107); Estimated GFR 13.44 (mL/min/1.73m2); Glucose 221 mg/dL (74-106); Magnesium 1.7 mg/dL (1.8-2.4); PHOSPHORUS 4.5 mg/dL (2.6-4.7); Potassium 5.3 mmol/L (3.5-5.1); Sodium 140 mmol/L (136-145); Uric Acid 7.6 mg/dL (3.5-7.2)
[2021-06-24 14:13] LABS: CREATININE 4.4 mg/dL (0.70-1.30)
[2021-06-24 14:26] LABS: Vitamin B12 1126 pg/mL (193-986)
[2021-06-25 12:44] LABS: Tacrolimus 2.4 ng/mL (See Note)
== END 2021-06-24 02:32 | disposition home or self-care (01) ==
LOC: LBO 02:31
PROVIDERS: PCP Family Medicine; Visit Provider Internal Medicine Hematology & Oncology
DX: Z94.0 Kidney transplant status (principal); Z79.899 Other long term (current) drug therapy; Z29.8 Encounter for other specified prophylactic measures; N18.4 Chronic kidney disease, stage 4 (severe); D63.1 Anemia in chronic kidney disease; E53.8 Deficiency of other specified B group vitamins
CPT/HCPCS: 36415; 80053; 80197; 81003; 81015; 82465; 82565; 82607; 83735; 84100; 84156; 84550; 85025

== ENCOUNTER 2021-07-22 13:10 | Outpatient (CLI) | payer MEDICARE, OTHER, SELFPAY ==
[2021-07-22 13:15] LABS: Abs Immature Grans 0.02 10^3/uL (0.0-0.06); Absolute Basophil Count 0.04 10^3/uL (0.0-0.2); Absolute Eosinophil Count 0.26 10^3/uL (0.0-0.7); Absolute Monocyte Count 0.67 10^3/uL (0.1-0.8); Absolute Neutrophil Count 4.23 10^3/uL (1.2-6.7); Basophils % 0.5; Eosinophils % 3.6; HCT 30.3 % (40.0-50.0); Immature Grans % 0.3; Lymphocytes % 28.7; MCHC 29.7 % (32.0-36.0); MCV 97.7 fL (80-95); MPV 8.3 fL (8.0-11.0); Monocytes % 9.2; Neutrophils % 57.7; Nucleated RBC 0 %; Platelet Count 169 10^3/uL (130-400); RDW 14.3 % (11.8-14.1); RDW-SD 49.8 fL; WBC 7.32 10^3/uL (4.4-10.8)
[2021-07-22 13:30] LABS: Hemoglobin A1C 6.7 % (<5.7)
[2021-07-22 14:19] LABS: TSH 1.67 uIU/mL (0.36-3.74)
== END 2021-07-22 13:11 | disposition home or self-care (01) ==
LOC: LBO 13:15
PROVIDERS: Internal Medicine Hematology & Oncology; PCP Family Medicine; Visit Provider Internal Medicine Endocrinology, Diabetes & Metabolism
DX: E11.65 Type 2 diabetes mellitus with hyperglycemia (principal); Z94.0 Kidney transplant status; Z79.4 Long term (current) use of insulin; D63.1 Anemia in chronic kidney disease; N18.4 Chronic kidney disease, stage 4 (severe)
CPT/HCPCS: 36415; 83036; 84443; 85025

== ENCOUNTER 2021-08-05 19:15 | Emergency (ER) | payer MEDICARE, OTHER, SELFPAY ==
[2021-08-05 19:20] VITALS: BP 182/60; PULSE 76; RESP 18; TEMP 36.7; O2SAT 99
--- NOTE | 2021-08-05 19:31 | ED.GENADUL_ITS ---
Discharge Plan Disposition Patient Disposition: HOME Condition: Improving Discharge Details Clinical Impression: Esophageal foreign body Primary Care Provider: Violetta Sanford ED Provider: Loreta Leon Home Meds and New Rx's Prescriptions: Continued folic acid 1 mg tablet 1 mg PO DAILY RF: 0 mycophenolate mofetil [CellCept] 250 mg capsule 500 mg PO BID RF: 0 calcitriol 0.25 mcg capsule 0.25 mcg PO DAILY RF: 0 mupirocin 2 % ointment 1 applic topical TID Qty: 15 RF: 0 aspirin [Aspirin Low Dose] 81 MG tablet,delayed release (DR/EC) 81 mg PO DAILY RF: 0 omeprazole [Prilosec] 40 MG capsule,delayed release(DR/EC) 40 mg PO DAILY RF: 0 montelukast 10 MG tablet 10 mg PO DAILY RF: 0 multivitamin [Daily Multi-Vitamin] 1 EACH tablet 1 ea PO DAILY RF: 0 hydralazine 100 mg tablet 100 mg PO TID RF: 0 metoprolol succinate 50 mg tablet extended release 24 hr 50 mg PO BID RF: 0 guaifenesin 200 mg tablet 200 mg PO Q4H RF: 0 fluticasone propionate 50 mcg/actuation spray,suspension 1 spray intranasal DAILY RF: 0 vitamin B complex [B Complex-Vitamin B12] Tablet 1 tab PO BID RF: 0 tacrolimus [Prograf] 1 mg capsule 1 mg PO Q12H RF: 0 cholecalciferol (vitamin D3) [Vitamin D3] 2,000 UNIT tablet 2,000 unit PO DAILY RF: 0 fluticasone propionate 16 GM spray,suspension 2 spry NS DAILY PRNRF: 0 albuterol sulfate [Ventolin HFA] 90 mcg/actuation Hfa Aerosol Inhaler 90 mcg Inhalation 4-6XD RF: 0 mycophenolate mofetil [CellCept] 250 mg Capsule 500 mg PO BID RF: 0 ipratropium-albuterol 0.5 mg-3 mg(2.5 mg base)/3 mL Solution For Nebulization 3 ml UPD Q6H Qty: 0 RF: 0 tacrolimus 0.5 mg Capsule 1 mg PO DAILY Qty: 0 RF: 0 insulin aspart U-100 [Novolog Flexpen U-100 Insulin] 100 unit/mL Insulin Pen 0 units subcut 0800,1200,1700 Qty: 0 RF: 0 atorvastatin [Lipitor] 20 MG tablet 1 tab PO DAILY RF: 0 primidone 50 mg Tablet 50 mg PO BID RF: 0 Victoza 2-Nigel 0.6 mg/0.1 mL (18 mg/3 mL) Pen Injector 1.2 mg SUBCUT QDAY RF: 0 Levemir FlexTouch U-100 Insuln 100 unit/mL (3 mL) insulin pen 55 units subcut BID RF: 0 amlodipine 5 mg Tablet 5 mg PO DAILY Qty: 30 RF: 2 Discharge Instructions Instructions: Esophageal Foreign Body (ED) Additional Instructions: Be sure to chew your food slowly and take small bites. If you experience sensation of impacted food in your esophagus again, you can try a carbonated beverage which may help dissolve the food and allow it to pass. If this happens again and you have no relief with measures at home, return to the emergency department. Follow up with your primary care doctor in 1 week as needed. Return to the emergency department with any worsening or new concerning symptoms. Discharge Data Discharge Physician: Loreta Leon Medical Decision Making 66-year-old male with a history of multiple chronic medical problems including prior esophageal foreign body requiring operative intervention with EGD in February 2021 presents for sensation of food bolus in throat after eating steak fries 1 hour ago. Blood pressure mildly hypertensive otherwise vitals within normal limits. He states he has been unable to swallow any liquids. No drooling noted on exam. Easy granules ordered prior to my evaluation and then patient stated he was able to swallow and had complete resolution of his symptoms. Patient was able to drink a half a cup of water and denied any pain or sensation of esophageal foreign body. Patient advised on the importance of taking multiple small bites and completely chewing prior to swallowing. Advised to follow up with the primary care doctor for re-evaluation. Usual and customary return precautions given prior to discharge. Medical Records Medical records reviewed: Yes I reviewed the patient's medical records. HPI General Mode of arrival: wheelchair . Date/Time Provider Initiated Documentation: 08/05/21 19:16 . Limitations to Documentation: no limitations . Information obtained by: patient . HPI Narrative: Patient is a 66-year-old male with multiple chronic medical problems presents for sensation of food stuck in his throat for the past hour after eating at home. Patient states he was eating steak fries when he felt a sensation that a bangura was stuck in his throat. He states he drank a carbonated beverage and stuck his finger down his throat to try to improve his symptoms but with no relief. Patient denies any fever, vomiting, chest pain, difficulty breathing or abdominal pain. Patient was admitted here in February 2021 for esophageal foreign body requiring operative intervention with EGD. Related Data Home Medications Medication Instructions Recorded Confirmed aspirin [Aspirin Low Dose] 81 mg PO DAILY 10/31/12 08/05/21 montelukast 10 mg PO DAILY tab-cap 10/31/12 08/05/21 omeprazole [Prilosec] 40 mg PO DAILY 10/31/12 08/05/21 multivitamin [Daily Multi-Vitamin] 1 ea PO DAILY 05/10/13 08/05/21 cholecalciferol (vitamin D3) 2,000 unit PO DAILY 01/16/16 08/05/21 [Vitamin D3] fluticasone propionate 2 spry NS DAILY PRN 01/16/16 08/05/21 atorvastatin [Lipitor] 1 tab PO DAILY 02/01/17 08/05/21 albuterol sulfate [Ventolin HFA] 90 mcg INHALATION 4-6XD 05/04/18 08/05/21 folic acid 1 mg tablet 1 mg PO DAILY 06/12/18 08/05/21 mycophenolate mofetil [CellCept] 500 mg PO BID 11/12/18 08/05/21 insulin aspart U-100 [Novolog 0 units SUBCUT 0800,1200,1700 #0 ml 11/15/18 08/05/21 Flexpen U-100 Insulin] ipratropium-albuterol 3 ml UPD Q6H #0 ml 11/15/18 08/05/21 tacrolimus 1 mg PO DAILY #0 cap 11/15/18 08/05/21 Levemir FlexTouch U-100 Insuln 55 units SUBCUT BID 08/03/19 08/05/21 Victoza 2-Nigel 1.2 mg SUBCUT QDAY 08/03/19 08/05/21 primidone 50 mg PO BID 08/03/19 08/05/21 amlodipine 5 mg PO DAILY #30 tab 08/06/19 08/05/21 fluticasone propionate 50 1 spray INTRANASAL DAILY 09/04/20 08/05/21 mcg/actuation nasal spray,suspension guaifenesin 200 mg tablet 200 mg PO Q4H 09/04/20 04/22/21 hydralazine 100 mg tablet 100 mg PO TID tab 09/04/20 08/05/21 metoprolol succinate 50 mg 50 mg PO BID 09/04/20 08/05/21 tablet,extended release 24 hr tacrolimus 1 mg capsule, 1 mg PO Q12H 09/04/20 08/05/21 immediate-release vitamin B complex 1 tab PO BID 09/04/20 08/05/21 calcitriol 0.25 mcg capsule 0.25 mcg PO DAILY 04/14/21 08/05/21 mycophenolate mofetil 250 mg 500 mg PO BID 04/14/21 08/05/21 capsule mupirocin 2 % topical ointment 1 applic TOPICAL TID #15 g 04/15/21 08/05/21 Previous Rx's Medication Instructions Recorded insulin aspart U-100 [Novolog 0 units SUBCUT 0800,1200,1700 #0 ml 11/15/18 Flexpen U-100 Insulin] ipratropium-albuterol 3 ml UPD Q6H #0 ml 11/15/18 tacrolimus 1 mg PO DAILY #0 cap 11/15/18 amlodipine 5 mg PO DAILY #30 tab 08/06/19 mupirocin 2 % topical ointment 1 applic TOPICAL TID #15 g 04/15/21 Allergies Allergy/AdvReac Type Severity Reaction Status Date / Time levofloxacin Allergy Mild Unknown Verified 04/20/21 10:26 sulfamethoxazole Allergy Mild Unknown Verified 04/20/21 10:26 [From Bactrim] trimethoprim [From Bactrim] Allergy Mild Unknown Verified 04/20/21 10:26 doxycycline Allergy Unknown Verified 04/20/21 10:26 clindamycin Allergy Skin Rash Verified 04/20/21 10:26 ibuprofen Allergy Verified 04/20/21 10:26 Penicillins Allergy SWELLING Verified 04/20/21 10:26 tree nut Allergy Verified 04/20/21 10:26 lisinopril AdvReac KIDNEY Verified 04/20/21 10:26 SHUT DOWN yaneth inhibitors Allergy Mild Skin Rash Uncoded 04/20/21 10:26 CATS & BIRDS AdvReac Intermediate WHEEZING Uncoded 04/20/21 10:26 General Stated Complaint: ThroatFB RADHA: 4 Review of Systems All systems reviewed & are unremarkable except as noted in HPI and below Constitutional Constitutional: Reports as per HPI, Denies chills and Denies fever(s) Eyes Eyes: Denies blurry vision ENT Ears, Nose, Mouth, and Throat: Denies dizziness, Denies sore throat and Denies throat swelling Comments: sensation of food stuck in throat Cardiovascular Cardiovascular: Denies chest pain and Denies dyspnea Respiratory Respiratory: Denies cough and Denies dyspnea Gastrointestinal Gastrointestinal: Denies abdominal pain, Denies diarrhea and Denies vomiting Genitourinary Genitourinary: Denies hematuria and Denies dysuria Musculoskeletal Musculoskeletal: Denies back pain and Denies numbness Integumentary/Breasts Skin/Breast: Denies lesions and Denies rash Neurologic Neurologic: Denies dizziness, Denies localized weakness and Denies numbness Allergic/Immunologic Allergic/Immunologic: Denies throat swelling PFSH All Active Problems Esophageal foreign body (Acute) Esophageal foreign body (Acute) Food impaction of esophagus (Acute) Macrocytic anemia (Acute) Gastroparesis diabeticorum (Acute) Kidney transplant recipient (Acute) Chronic kidney disease (Chronic) Hypertension (Chronic) Hyperlipidemia (Chronic) CAD (coronary artery disease) (Chronic) GERD (gastroesophageal reflux disease) (Chronic) Asthma (Chronic) Chronic anxiety (Chronic) Chronic depression (Chronic) Status post bilateral below knee amputation (Chronic) Intention tremor (Chronic) Status post appendectomy (Acute) Physical medicine and rehabilitation procedures (Acute 06/27/13) Dysphagia (Acute) Infection of amputation stump of right lower extremity (Acute) CHF (congestive heart failure) (Acute) Diastolic CHF (Acute) CAP (community acquired pneumonia) (Acute) Acute kidney injury superimposed on chronic kidney disease (Acute) Uncontrolled insulin dependent diabetes mellitus (Acute) Ambulatory dysfunction (Acute) Discharge planning issues (Acute) DVT prophylaxis (Acute) Sepsis (Acute) MELISSA (obstructive sleep apnea) (Chronic) Left lower lobe pneumonia (Acute) Wenckebach second degree AV block (Acute) Fluid level behind tympanic membrane of left ear (Acute) Sensory hearing loss, bilateral (Acute) Tinnitus, bilateral (Acute) Osteoma of ear canal (Acute) Atrial fibrillation (Chronic) Kidney transplant recipient (Chronic) 2005 Medical History Adenomatous colon polyp Anxiety and depression Atrial fibrillation COPD (chronic obstructive pulmonary disease) Diabetes mellitus Erectile dysfunction Gastroparesis diabeticorum GERD (gastroesophageal reflux disease) History of colon polyps HTN (hypertension) Hydrocele Hyperlipidemia Intention tremor LEFT FOREARM AV FISTULA Lumbar back pain Macrocytic anemia Obesity MELISSA (obstructive sleep apnea) Personal history of allergy to other antibiotic agent Sciatica Stage 3 severe COPD by GOLD classification Tremor Tricuspid insufficiency Vitamin B 12 deficiency Surgical History Colonoscopy - MAC (02/01/17) EGD - MAC (04/02/16) History of below-knee amputation of both lower extremities 2010 History of colonoscopy (~10/2020) Hx of amputation below knee Kidney transplant recipient 2005 Kidney transplant recipient Family History Brother Personal history of malignant neoplasm Social History Smoking/Tobacco Use Status: Former Tobacco Use Quit Date: 07/25/90 Smoking risk assessment performed?: Yes Alcohol Intake: never Drug use: Never Substance use type: does not use Do you feel safe at home: Yes Do you feel safe in your relationship?: Yes Exam Const General: cooperative and no acute distress HENMT Head: normal to inspection Ears: hearing grossly normal bilaterally and external ears normal Face and sinus: normal facial exam Mouth: oral mucosae normal, no drooling and no trismus Throat: posterior oropharynx normal, uvula midline, no peritonsillar masses and normal posterior oropharynx Eyes General: appearance normal, both eyes and all related structures EOM: EOM intact bilaterally Neck Neck: normal visual inspection and No submandibular swelling Lymphatic: no lymphadenopathy noted Chest Chest: normal inspection of the chest and no tenderness Resp Effort & Inspection: normal respiratory effort and able to speak in complete sentences Auscultation: clear to auscultation bilaterally Cardio Rate: regular rate Rhythm: regular rhythm GI Inspection: normal to inspection Palpation: soft, not firm, not rigid and nontender Auscultation: normal bowel sounds Skin General skin exam: no rashes or lesions noted Neuro General: patient alert, patient awake and patient oriented x3 Cognition: normal cognition Speech: speech normal Motor: muscle tone normal throughout Sensory Exam: no sensory deficits noted Extrem General: normal to inspection, full ROM, capillary refill normal, no calf te nderness bilaterally and no edema Psych Appearance: grossly normal Mental Status: mental status grossly normal Speech and Movement: speech and movement normal Affect: normal affect Course Vital Signs Vital signs: Vital Signs Temperature 98.1 F 08/05/21 19:20 Pulse 76 08/05/21 19:20 Respiratory Rate 18 08/05/21 19:20 Blood Pressure 182/60 H 08/05/21 19:20 Pulse Oximetry 99 08/05/21 19:20 Temperature 98.1 F 08/05/21 19:20 Temperature Source Temporal Artery Scan 08/05/21 19:20 Pulse 76 08/05/21 19:20 Respiratory Rate 18 08/05/21 19:20 Respiratory Effort 08/05/21 19:25 Respiratory Pattern Normal 08/05/21 19:25 Blood Pressure 182/60 H 08/05/21 19:20 Blood Pressure Position Supine 08/05/21 19:20 Pulse Oximetry 99 08/05/21 19:20 Oxygen Delivery Method Room Air 08/05/21 19:20 Oxygen Flow Rate 0 08/05/21 19:20 Pain Level 0 08/05/21 19:20
== END 2021-08-05 20:06 | disposition home or self-care (01) ==
PROVIDERS: Emergency Provider Physician Assistant; PCP Family Medicine
DX: T17.228A Food in pharynx causing other injury, initial encounter (principal); I10 Essential (primary) hypertension
CPT/HCPCS: 99282

== ENCOUNTER 2021-08-19 14:16 | Outpatient (RCR) | payer MEDICARE, OTHER, SELFPAY ==
[2021-08-19 14:56] LABS: Abs Immature Grans 0.02 10^3/uL (0.0-0.06); Absolute Basophil Count 0.05 10^3/uL (0.0-0.2); Absolute Eosinophil Count 0.26 10^3/uL (0.0-0.7); Absolute Lymphocyte Count 1.97 10^3/uL (1.2-3.4); Absolute Monocyte Count 0.64 10^3/uL (0.1-0.8); Absolute Neutrophil Count 3.52 10^3/uL (1.2-6.7); Basophils % 0.8; HCT 31.7 % (40.0-50.0); HGB 9.6 g/dL (13.5-17.5); Immature Grans % 0.3; Lymphocytes % 30.5; MCH 29.2 pg (27.0-33.0); MCHC 30.3 % (32.0-36.0); MCV 96.4 fL (80-95); MPV 8.4 fL (8.0-11.0); Monocytes % 9.9; Neutrophils % 54.5; Nucleated RBC 0 %; Platelet Count 190 10^3/uL (130-400); RBC 3.29 10^6/uL (4.36-5.78); RDW-SD 49.6 fL; WBC 6.46 10^3/uL (4.4-10.8)
[2021-08-19 15:19] LABS: Iron 35 ug/dL (65-175); Total Iron Binding Capacity 206 ug/dL (250-450); Transferrin Sat 17 % (20-55)
[2021-08-19 15:24] LABS: ALT 18 U/L (16-63); AST 11 U/L (15-37); Albumin 3.1 g/dL (3.4-5.0); Alkaline Phosphatase 111 U/L (46-116); Anion Gap 10.4 mmol/L (3-11); BUN 47 mg/dL (7-18); Bilirubin, Total 0.3 mg/dL (0.2-1.0); CO2 24.6 mmol/L (21.0-32.0); Chloride 104 mmol/L (98-107); Estimated GFR 14.18 (mL/min/1.73m2); Ferritin 67 ng/mL (26-388); Glucose 213 mg/dL (74-106); Potassium 4.4 mmol/L (3.5-5.1); Sodium 139 mmol/L (136-145); Total Protein 7.9 g/dL (6.4-8.2)
[2021-08-19 15:43] LABS: Calcium 12.1 mg/dL (8.5-10.1)
[2021-08-19 15:45] LABS: CREATININE 4.2 mg/dL (0.70-1.30)
[2021-08-20 12:07] LABS: Erythropoietin 81.6 mIU/mL (2.6 - 18.5)
== END 2021-08-24 23:59 | disposition home or self-care (01) ==
LOC: INF 14:16
PROVIDERS: PCP Family Medicine; Visit Provider Internal Medicine Hematology & Oncology
DX: N18.4 Chronic kidney disease, stage 4 (severe) (principal)
CPT/HCPCS: 36415; 80053; 82668; 82728; 83540; 83550; 85025

== ENCOUNTER 2021-09-16 01:48 | Outpatient (CLI) | payer MEDICARE, OTHER, SELFPAY ==
[2021-09-16 13:00] LABS: Abs Immature Grans 0.02 10^3/uL (0.0-0.06); Absolute Basophil Count 0.05 10^3/uL (0.0-0.2); Absolute Eosinophil Count 0.26 10^3/uL (0.0-0.7); Absolute Lymphocyte Count 1.49 10^3/uL (1.2-3.4); Absolute Monocyte Count 0.56 10^3/uL (0.1-0.8); Absolute Neutrophil Count 3.19 10^3/uL (1.2-6.7); Basophils % 0.9; Eosinophils % 4.7; HCT 28.6 % (40.0-50.0); HGB 8.4 g/dL (13.5-17.5); Immature Grans % 0.4; Lymphocytes % 26.8; MCH 29.1 pg (27.0-33.0); MCHC 29.4 % (32.0-36.0); Monocytes % 10.1; Neutrophils % 57.1; Nucleated RBC 0 %; Platelet Count 159 10^3/uL (130-400); RBC 2.89 10^6/uL (4.36-5.78); RDW 14.4 % (11.8-14.1); RDW-SD 51.6 fL; WBC 5.57 10^3/uL (4.4-10.8)
[2021-09-16 13:09] LABS: Bilirubin Negative (Negative); Blood Negative (Negative); Clarity Clear (Clear); Glucose 100 mg/dL (Negative); Ketones Negative (Negative); Leukocyte Esterase Negative (Negative); Nitrite Negative (Negative); Urobilinogen 0.2 EU/dL (Up TO 0.2)
[2021-09-16 13:17] LABS: Bacteria Rare HPF (Negative); C & S Indicated? No; Casts Negative LPF (Negative); Crystals Negative HPF (Negative); Epithelial Cells Rare HPF (Negative); Mucus Trace (Negative); RBC 0-2 HPF (0-2); WBC 0-2 HPF (0-5)
[2021-09-16 13:42] LABS: COMMENT (LAB VIEW ONLY) 76.31 mg/dL; PROTEIN 111.9 mg/dL; Prot/Crea Ur Ratio 1.46
[2021-09-16 14:03] LABS: Cholesterol 78 mg/dL (<200)
[2021-09-16 14:07] LABS: ALT 14 U/L (16-63); AST 7 U/L (15-37); Alkaline Phosphatase 111 U/L (46-116); Anion Gap 9.3 mmol/L (3-11); BUN 43 mg/dL (7-18); Bilirubin, Total 0.3 mg/dL (0.2-1.0); CO2 21.7 mmol/L (21.0-32.0); Calcium 8.7 mg/dL (8.5-10.1); Chloride 108 mmol/L (98-107); Estimated GFR 14.58 (mL/min/1.73m2); Glucose 163 mg/dL (74-106); Magnesium 1.9 mg/dL (1.8-2.4); PHOSPHORUS 3.8 mg/dL (2.6-4.7); Potassium 5.9 mmol/L (3.5-5.1); Sodium 139 mmol/L (136-145); Uric Acid 6.3 mg/dL (3.5-7.2)
[2021-09-16 14:13] LABS: CREATININE 4.1 mg/dL (0.70-1.30)
[2021-09-23 16:31] LABS: Tacrolimus (DHMC) 4.2 ng/ml
== END 2021-09-16 01:49 | disposition home or self-care (01) ==
LOC: LBO 01:48
PROVIDERS: Internal Medicine Nephrology; PCP Family Medicine; Visit Provider Internal Medicine Hematology & Oncology
DX: N18.4 Chronic kidney disease, stage 4 (severe) (principal); Z29.8 Encounter for other specified prophylactic measures; Z94.0 Kidney transplant status; Z79.899 Other long term (current) drug therapy; D63.1 Anemia in chronic kidney disease
CPT/HCPCS: 36415; 80053; 80197; 81003; 81015; 82465; 82565; 83735; 84100; 84156; 84550; 85025

== ENCOUNTER 2021-11-18 04:56 | Outpatient (CLI) | payer MEDICARE, OTHER, SELFPAY ==
[2021-11-18 11:25] LABS: Abs Immature Grans 0.03 10^3/uL (0.0-0.06); Absolute Basophil Count 0.05 10^3/uL (0.0-0.2); Absolute Eosinophil Count 0.31 10^3/uL (0.0-0.7); Absolute Lymphocyte Count 1.77 10^3/uL (1.2-3.4); Absolute Monocyte Count 0.55 10^3/uL (0.1-0.8); Absolute Neutrophil Count 5.02 10^3/uL (1.2-6.7); Basophils % 0.6; HCT 25.7 % (40.0-50.0); HGB 7.6 g/dL (13.5-17.5); Immature Grans % 0.4; Lymphocytes % 22.9; MCH 28.4 pg (27.0-33.0); MCHC 29.6 % (32.0-36.0); MCV 95.9 fL (80-95); MPV 7.8 fL (8.0-11.0); Monocytes % 7.1; Platelet Count 197 10^3/uL (130-400); RBC 2.68 10^6/uL (4.36-5.78); RDW 13.6 % (11.8-14.1); RDW-SD 47.6 fL; WBC 7.73 10^3/uL (4.4-10.8)
[2021-11-18 11:31] LABS: Bilirubin Negative (Negative); Blood Negative (Negative); Clarity Clear (Clear); Glucose 100 mg/dL (Negative); Ketones Negative (Negative); Leukocyte Esterase Negative (Negative); Nitrite Negative (Negative); Urobilinogen 0.2 EU/dL (Up TO 0.2); pH 5.5 (5-8)
[2021-11-18 11:37] LABS: ALT 20 U/L (16-63); AST 13 U/L (15-37); Albumin 2.7 g/dL (3.4-5.0); Alkaline Phosphatase 129 U/L (46-116); Anion Gap 7.1 mmol/L (3-11); BUN 49 mg/dL (7-18); Bilirubin, Total 0.3 mg/dL (0.2-1.0); CO2 20.9 mmol/L (21.0-32.0); Calcium 8.9 mg/dL (8.5-10.1); Chloride 110 mmol/L (98-107); Estimated GFR 16.42 (mL/min/1.73m2); Glucose 174 mg/dL (74-106); Potassium 5.5 mmol/L (3.5-5.1); Sodium 138 mmol/L (136-145); Total Protein 7.8 g/dL (6.4-8.2)
[2021-11-18 11:38] LABS: Bacteria Negative HPF (Negative); C & S Indicated? No; Casts 0-2 Hyaline LPF (Negative); Crystals Negative HPF (Negative); Epithelial Cells Rare HPF (Negative); Mucus Trace (Negative); RBC Negative HPF (0-2); WBC Negative HPF (0-5)
[2021-11-18 12:04] LABS: CREATININE 3.7 mg/dL (0.70-1.30)
[2021-11-18 13:18] LABS: COMMENT (LAB VIEW ONLY) 80.08 mg/dL; PROTEIN 118.8 mg/dL; Prot/Crea Ur Ratio 1.48
[2021-11-18 13:19] LABS: Magnesium 1.9 mg/dL (1.8-2.4)
[2021-11-18 13:22] LABS: Cholesterol 82 mg/dL (<200)
[2021-11-18 13:51] LABS: PHOSPHORUS 3.3 mg/dL (2.6-4.7); Uric Acid 6.7 mg/dL (3.5-7.2)
[2021-11-19 14:25] LABS: Tacrolimus 3.3 ng/mL (See Note)
== END 2021-11-18 04:57 | disposition home or self-care (01) ==
LOC: LBO 04:57
PROVIDERS: Internal Medicine Nephrology; PCP Family Medicine; Visit Provider Internal Medicine Hematology & Oncology
DX: N18.4 Chronic kidney disease, stage 4 (severe) (principal); D63.1 Anemia in chronic kidney disease; Z94.0 Kidney transplant status; Z79.899 Other long term (current) drug therapy
CPT/HCPCS: 36415; 80053; 85027; 80197; 81003; 81015; 82465; 82565; 83735; 84100; 84156; 84550; 85025

== ENCOUNTER 2021-11-25 01:29 | Outpatient (CLI) | payer MEDICARE, OTHER, SELFPAY | END 2021-11-25 01:30 | disposition home or self-care (01) | LOC: LBO 01:29 | PROVIDERS: PCP Family Medicine; Visit Provider Internal Medicine Hematology & Oncology ==

== ENCOUNTER 2021-11-26 12:33 | Outpatient (CLI) | payer MEDICARE, OTHER, SELFPAY ==
[2021-11-26 11:11] LABS: Abs Immature Grans 0.08 10^3/uL (0.0-0.06); Absolute Basophil Count 0.04 10^3/uL (0.0-0.2); Absolute Eosinophil Count 0.26 10^3/uL (0.0-0.7); Absolute Lymphocyte Count 1.84 10^3/uL (1.2-3.4); Absolute Neutrophil Count 3.59 10^3/uL (1.2-6.7); Basophils % 0.6; Eosinophils % 4.1; HCT 26.3 % (40.0-50.0); HGB 7.7 g/dL (13.5-17.5); Immature Grans % 1.3; Lymphocytes % 29.2; MCH 28.4 pg (27.0-33.0); MCHC 29.3 % (32.0-36.0); MCV 97 fL (80-95); MPV 8.2 fL (8.0-11.0); Monocytes % 7.9; Neutrophils % 56.9; Platelet Count 181 10^3/uL (130-400); RBC 2.71 10^6/uL (4.36-5.78); RDW 14.6 % (11.8-14.1); RDW-SD 49.7 fL; WBC 6.31 10^3/uL (4.4-10.8)
[2021-11-26 11:39] LABS: ALT 18 U/L (16-63); AST 11 U/L (15-37); Albumin 2.8 g/dL (3.4-5.0); Alkaline Phosphatase 129 U/L (46-116); Anion Gap 7.8 mmol/L (3-11); BUN 43 mg/dL (7-18); Bilirubin, Total 0.2 mg/dL (0.2-1.0); CO2 22.2 mmol/L (21.0-32.0); CREATININE 3.5 mg/dL (0.70-1.30); Calcium 8.5 mg/dL (8.5-10.1); Chloride 111 mmol/L (98-107); Estimated GFR 17.51 (mL/min/1.73m2); Glucose 195 mg/dL (74-106); Potassium 5.8 mmol/L (3.5-5.1); Sodium 141 mmol/L (136-145); Total Protein 7.6 g/dL (6.4-8.2)
[2021-11-26 12:51] LABS: Iron 37 ug/dL (65-175); Total Iron Binding Capacity 193 ug/dL (250-450); Transferrin Sat 19 % (20-55)
[2021-11-26 13:04] LABS: Ferritin 201 ng/mL (26-388)
== END 2021-11-26 12:34 | disposition home or self-care (01) ==
LOC: LBO 12:37
PROVIDERS: PCP Family Medicine; Visit Provider Internal Medicine Hematology & Oncology
DX: N18.4 Chronic kidney disease, stage 4 (severe) (principal)
CPT/HCPCS: 36415; 80053; 82728; 83540; 83550; 85025

== ENCOUNTER 2021-11-29 19:30 | Day surgery (SDC) | payer MEDICARE, OTHER, SELFPAY ==
[2021-11-29 19:37] VITALS: BP 152/109; PULSE 77; RESP 18; TEMP 37.1; O2SAT 99
[2021-11-29] MEDS: Water,Injection,Sterile 10 ML VIAL (20:09)
[2021-11-29] MEDS: Simethicone/Sod Bicarb/Cit Ac, 4 gram PACKET 1 PACKET PO (20:09)
[2021-11-29] MEDS: Glucagon 1 MG VIAL 3 MG IVP (20:09)
--- NOTE | 2021-11-29 20:30 | DI.CT_ITS ---
Exam(s) CT CHEST WO EXAM: CT CHEST WO CLINICAL HISTORY: Esophageal foreign body TECHNIQUE: Imaging Protocol: Axial computed tomography images with coronal and sagittal reformatted images were created and reviewed CONTRAST MATERIAL: Intravenous: Omnipaque 350 Contrast volume:Noncontrast COMPARISON: CT CT ABDOMEN PELVIS WO from 11/12/[address] NECK WO from 08/03/2019 CR,XR XR CHEST 2V PA LATERAL from 08/16/2020 FINDINGS: Tracheobronchial tree: Mild bronchial wall thickening left lower lobe. No bronchiectasis or mucous p lugging. Mediastinum and Renu: No dominant adenopathy or fluid collection. Esophagus: Low density foreign bod y upper esophagus measuring 2.5 x 1.2 x 1.0 cm. No metallic foreign body or evidence perforation. Q uestion of mild esophageal wall thickening. Pulmonary parenchyma: Patchy airspace disease seen in the right upper lobe as well as scattered in th e left upper and lower lobes. Atelectasis left lower lobe. Pleura: No effusion or pneumothorax. Heart: The heart is not dilated. Mitral annular and coronary artery calcifications are seen. Aorta: Thoracic aorta non-dilated. Upper abdomen: Pancreas somewhat atrophic. Question of increased haziness in the surrounding fat. Findings could represent pancreatitis. Clinical correlation is recommended. Kidneys appear atrophic . Lymph nodes: Within normal limits. Bones: Degenerative changes. Soft tissues: Mild edema in the anterior abdominal wall. IMPRESSION: Low-density foreign body upper esophagus. Scattered patchy infiltrates bilaterally. Clinical correlation is recommended. RADIATION DOSE DELIVERED: 960.32mGy.cm Total DLP DATA REPOSITORY: All CT scans at this facility are submitted to the National Radiology Data Registry (NRDR) Dose Index Registry (DIR) with the [employer] ([employer]). RADIATION OPTIMIZATION: All CT scans at this facility use at least one of these dose optimization te chniques: automated exposure control; mA and/or kV adjustment per patient size (includes targeted exa ms where dose is matched to clinical indication); or iterative reconstruction.
[2021-11-29 21:10] LABS: Source Nasal/Nares
[2021-11-29 21:14] LABS: Abs Immature Grans 0.03 10^3/uL (0.0-0.06); Absolute Basophil Count 0.05 10^3/uL (0.0-0.2); Absolute Eosinophil Count 0.34 10^3/uL (0.0-0.7); Absolute Lymphocyte Count 1.74 10^3/uL (1.2-3.4); Absolute Monocyte Count 0.64 10^3/uL (0.1-0.8); Absolute Neutrophil Count 5.63 10^3/uL (1.2-6.7); Basophils % 0.6; HCT 25.9 % (40.0-50.0); HGB 7.6 g/dL (13.5-17.5); Immature Grans % 0.4; Lymphocytes % 20.6; MCH 28.5 pg (27.0-33.0); MCHC 29.3 % (32.0-36.0); MCV 97 fL (80-95); MPV 8.5 fL (8.0-11.0); Monocytes % 7.6; Neutrophils % 66.8; Platelet Count 183 10^3/uL (130-400); RBC 2.67 10^6/uL (4.36-5.78); RDW 15.1 % (11.8-14.1); RDW-SD 51.5 fL; WBC 8.43 10^3/uL (4.4-10.8)
[2021-11-29 21:23] LABS: Anion Gap 9.1 mmol/L (3-11); BUN 42 mg/dL (7-18); CO2 20.9 mmol/L (21.0-32.0); Calcium 8.3 mg/dL (8.5-10.1); Chloride 108 mmol/L (98-107); Estimated GFR 15.92 (mL/min/1.73m2); Glucose 316 mg/dL (74-106); Potassium 5.3 mmol/L (3.5-5.1); Sodium 138 mmol/L (136-145)
[2021-11-29 21:26] LABS: CREATININE 3.8 mg/dL (0.70-1.30)
[2021-11-29 22:15] LABS: COVID-19 PCR Negative (Negative)
--- NOTE | 2021-11-29 22:21 | DI.VRAD_ITS ---
PROCEDURE INFORMATION: Exam: CT Chest Without Contrast; Diagnostic Exam date and time: 11/29/2021 21:22 Age: 66 years old Clinical indication: Other: Esophageal foreign body TECHNIQUE: Imaging protocol: Diagnostic computed tomography of the chest without contrast. 3D rendering (Not supervised by radiologist): MIP and/or 3D reconstructed images were created by the technologist. COMPARISON: CR XR CHEST 2V PA LATERAL 08/16/2020 19:56 FINDINGS: Lungs: Predominantly mild centrilobular pattern densities are present throughout the lungs, in association with bronchial wall thickening. Right upper lobe nodules are slightly more irregular. Follow-up as per institutional protocol. Pleural spaces: No pneumothorax. No pleural effusion. Heart: No cardiomegaly. No pericardial effusion. Mediastinal space: Approximately 25 x 12 x 10 mm very low-density structure is present in the upper thoracic esophagus. Given very low density could be primarily fat containing. Minor esophageal wall thickening at this location only. No pathologic dilation proximal to the lesion. Lymph nodes: Mediastinal lymph nodes are upper limits of normal in caliber. Vasculature: Unremarkable. No aortic aneurysm. Kidneys and ureters: The [place] kidneys appear moderately to severely atrophic, partially imaged. Retroperitoneal space: Hazy densities in the upper retroperitoneum including surrounding the pancreas which is somewhat fatty replaced. Could be a retroperitoneal edema, could be a mild pancreatitis depending on the clinical scenario. Bones/joints: Chronic bony changes with no acute fracture. Soft tissues: No suspicious lesions. IMPRESSION: 1. Small very low-density structure in the upper thoracic esophagus as described. 2. Evidence of mild endobronchial disease, age indeterminate. Details as above. 3. Additional findings as described. Dictated and Authenticated by: Genesis Davis MD. Ordering:CARIDAD Salamanca MD
--- NOTE | 2021-11-29 22:32 | ED.GENADUL_ITS ---
Discharge Plan Disposition Patient Disposition: [facility] INPATIENT Condition: Serious Discharge Details Chief Complaint: ThroatFB Clinical Impression: Esophageal foreign body Primary Care Provider: Violetta Sanford ED Provider: Cheikh Camp Home Meds and New Rx's Prescriptions: No Action folic acid 1 mg tablet 1 mg PO DAILY 0RF mycophenolate mofetil [CellCept] 250 mg capsule 500 mg PO BID 0RF calcitriol 0.25 mcg capsule 0.25 mcg PO DAILY 0RF mupirocin 2 % ointment 1 applic topical TID Qty: 15 0RF aspirin [Aspirin Low Dose] 81 MG tablet,delayed release (DR/EC) 81 mg PO DAILY 0RF omeprazole [Prilosec] 40 MG capsule,delayed release(DR/EC) 40 mg PO DAILY 0RF montelukast 10 MG tablet 10 mg PO DAILY 0RF multivitamin [Daily Multi-Vitamin] 1 EACH tablet 1 ea PO DAILY 0RF hydralazine 100 mg tablet 100 mg PO TID 0RF metoprolol succinate 50 mg tablet extended release 24 hr 50 mg PO BID 0RF guaifenesin 200 mg tablet 200 mg PO Q4H 0RF fluticasone propionate 50 mcg/actuation spray,suspension 1 spray intranasal DAILY 0RF Rx Instructions: administer into each nostril vitamin B complex [B Complex-Vitamin B12] Tablet 1 tab PO BID 0RF tacrolimus [Prograf] 1 mg capsule 1 mg PO Q12H 0RF cholecalciferol (vitamin D3) [Vitamin D3] 2,000 UNIT tablet 2,000 unit PO DAILY 0RF fluticasone propionate 16 GM spray,suspension 2 spry NS DAILY PRN0RF albuterol sulfate [Ventolin HFA] 90 mcg/actuation Hfa Aerosol Inhaler 90 mcg Inhalation 4-6XD 0RF mycophenolate mofetil [CellCept] 250 mg Capsule 500 mg PO BID 0RF ipratropium-albuterol 0.5 mg-3 mg(2.5 mg base)/3 mL Solution For Nebulization 3 ml UPD Q6H Qty: 0 0RF tacrolimus 0.5 mg Capsule 1 mg PO DAILY Qty: 0 0RF Rx Instructions: takes BID insulin aspart U-100 [Novolog Flexpen U-100 Insulin] 100 unit/mL Insulin Pen 0 units subcut 0800,1200,1700 Qty: 0 0RF atorvastatin [Lipitor] 20 MG tablet 1 tab PO DAILY 0RF primidone 50 mg Tablet 50 mg PO BID 0RF Rx Instructions: 08/16/20, / tab bid Victoza 2-Nigel 0.6 mg/0.1 mL (18 mg/3 mL) Pen Injector 1.2 mg SUBCUT QDAY 0RF Levemir FlexTouch U-100 Insuln 100 unit/mL (3 mL) insulin pen 55 units subcut BID 0RF amlodipine 5 mg Tablet 5 mg PO DAILY Qty: 30 2RF Medical Decision Making 66-year-old gentleman, past medical history that includes kidney transplant recipient, COPD, hypertension, hyperlipidemia, CAD, GERD, asthma, anxiety, depression, bilateral below the knee amputation, CHF, diabetes, presenting to the ER for evaluation of esophageal foreign body. Patient reports that about an hour or 2 before arrival he was eating an apple when he felt to get stuck in his esophagus. Since that time he has been unable to swallow. He reports that overall it is uncomfortable, denies difficulty speaking or breathing. He tells me this is happened multiple times in the past and while sometimes it does pass on its own and he has required the OR Clinically he appears slightly uncomfortable but is maintaining his airway without difficulty. He continues to spit saliva into a basin. Will obtain IV access, give IV glucagon, have him drink carbonated beverages as well as EZ granules. No change in his presentation after this therapy, it would appear as though he has not passed the foreign body. Case discussed with Dr. Haas, surgery. She requests routine laboratory values and a CT of his chest. Laboratory values obtained, appear baseline. CT imaging reveals a small very low-density structure in the upper thoracic esophagus. Case again discussed with our surgical team, she agrees to take to the OR. This documentation was generated using Diet TVation system, please disregard any oddities of phrase or misspellings. Medical Records Medical records reviewed: Yes I reviewed the patient's medical records. Imaging Data Radiologic Study: Attestation: I personally reviewed and interpreted this imaging study as follows: Imaging: CT Scan Radiologist's impression: PROCEDURE INFORMATION: Exam: CT Chest Without Contrast; Diagnostic Exam date and time: 11/29/2021 21:22 Age: 66 years old Clinical indication: Other: Esophageal foreign body TECHNIQUE: Imaging protocol: Diagnostic computed tomography of the chest without contrast. 3D rendering (Not supervised by radiologist): MIP and/or 3D reconstructed images were created by the technologist. COMPARISON: CR XR CHEST 2V PA LATERAL 08/16/2020 19:56 FINDINGS: Lungs: Predominantly mild centrilobular pattern densities are present throughout the lungs, in association with bronchial wall thickening. Right upper lobe nodules are slightly more irregular. Follow-up as per institutional protocol. Pleural spaces: No pneumothorax. No pleural effusion. Heart: No cardiomegaly. No pericardial effusion. Mediastinal space: Approximately 25 x 12 x 10 mm very low-density structure is present in the upper thoracic esophagus. Given very low density could be primarily fat containing. Minor esophageal wall thickening at this location only. No pathologic dilation proximal to the lesion. Lymph nodes: Mediastinal lymph nodes are upper limits of normal in caliber. Vasculature: Unremarkable. No aortic aneurysm. Kidneys and ureters: The grayling kidneys appear moderately to severely atrophic, partially imaged. Retroperitoneal space: Hazy densities in the upper retroperitoneum including surrounding the pancreas which is somewhat fatty replaced. Could be a retroperitoneal edema, could be a mild pancreatitis depending on the clinical scenario. Bones/joints: Chronic bony changes with no acute fracture. Soft tissues: No suspicious lesions.IMPRESSION: 1. Small very low-density structure in the upper thoracic esophagus as described. 2. Evidence of mild endobronchial disease, age indeterminate. Details as above. 3. Additional findings as described. Lab Data Lab results reviewed: Yes I reviewed the patient's lab results. Labs: Laboratory Tests Range/Units 11/29/21 11/29/21 11/29/21 21:05 21:05 21:05 WBC (4.4-10.8) 10^3/uL 8.43 RBC (4.36-5.78) 10^6/uL 2.67 L Hgb (13.5-17.5) g/dL 7.6 L Hct (40.0-50.0) % 25.9 L MCV (80-95) fL 97 H MCH (27.0-33.0) pg 28.5 MCHC (32.0-36.0) % 29.3 L RDW (11.8-14.1) % 15.1 H Plt Count (130-400) 10^3/uL 183 MPV (8.0-11.0) fL 8.5 Immature Gran % 0.4 Neutrophils % 66.8 Lymphocytes % 20.6 Monocytes % 7.6 Eosinophils % 4.0 Basophils % 0.6 Nucleated RBC % (0.0-0.3) % 0.0 Absolute Neutrophils (1.2-6.7) 10^3/uL 5.63 Absolute Lymphocytes (1.2-3.4) 10^3/uL 1.74 Absolute Monocytes (0.1-0.8) 10^3/uL 0.64 Absolute Eosinophils (0.0-0.7) 10^3/uL 0.34 Absolute Basophils (0.0-0.2) 10^3/uL 0.05 Sodium (136-145) mmol/L 138 Potassium (3.5-5.1) mmol/L 5.3 H Chloride (98-107) mmol/L 108 H Carbon Dioxide (21.0-32.0) mmol/L 20.9 L Anion Gap (3-11) mmol/L 9.1 BUN (7-18) mg/dL 42 H Creatinine (0.70-1.30) mg/dL 3.8 H* Estimated GFR/1.73 m2 (mL/min/1.73m2) 15.92 Glucose (74-106) mg/dL 316 H Calcium (8.5-10.1) mg/dL 8.3 L COVID-19 Source Nasal/Nares SARS-CoV-2 (PCR) (Negative) Negative HPI General Mode of arrival: ambulatory . Date/Time Provider Initiated Documentation: 11/29/21 19:52 . Limitations to Documentation: no limitations . Information obtained by: patient and family . History of Present Illness 66 year old M presents to the emergency department with the chief complaint of Esophageal foreign body, described as moderate, with intensity rated at 5. Quality is described as aching, and is localized to the mouth (Throat- esophagus). Patient reports no radiation. Patient started experiencing this hour(s) (2) and it has been constant. improves with No relieving factors improve symptom(s), No exacerbating factors reported . Patient notes no other symptoms.. Patient did receive the following treatments prior to arriv al, none Related Data Home Medications Medication Instructions Recorded Confirmed aspirin 81 mg tablet,delayed 81 mg PO DAILY 10/31/12 08/05/21 release (Aspirin Low Dose) montelukast 10 mg tablet 10 mg PO DAILY tab-cap 10/31/12 08/05/21 omeprazole 40 mg capsule,delayed 40 mg PO DAILY 10/31/12 08/05/21 release (Prilosec) multivitamin (Daily Multi-Vitamin) 1 ea PO DAILY 05/10/13 08/05/21 cholecalciferol (vitamin D3) 50 2,000 unit PO DAILY 01/16/16 08/05/21 mcg (2,000 unit) tablet (Vitamin D3) fluticasone propionate 50 2 spry NS DAILY PRN 01/16/16 08/05/21 mcg/actuation nasal spray,suspension atorvastatin 20 mg tablet (Lipitor) 1 tab PO DAILY 02/01/17 08/05/21 albuterol sulfate 90 mcg/actuation 90 mcg INHALATION 4-6XD 05/04/18 08/05/21 aerosol inhaler (Ventolin HFA) folic acid 1 mg tablet 1 mg PO DAILY 06/12/18 08/05/21 mycophenolate mofetil 250 mg 500 mg PO BID 11/12/18 08/05/21 capsule (CellCept) insulin aspart U-100 100 unit/mL 0 units (0 mL) SUBCUT 11/15/18 08/05/21 (3 mL) subcutaneous pen (Novolog 0800,1200,1700 #0 ml Flexpen U-100 Insulin aspart) ipratropium 0.5 mg-albuterol 3 mg 3 ml UPD Q6H #0 ml 11/15/18 08/05/21 (2.5 mg base)/3 mL nebulization soln tacrolimus 0.5 mg capsule, 1 mg PO DAILY #0 cap 11/15/18 08/05/21 immediate-release insulin detemir U-100 100 unit/mL 55 units SUBCUT BID 08/03/19 08/05/21 (3 mL) subcutaneous pen (Levemir FlexTouch U-100 Insulin) liraglutide 0.6 mg/0.1 mL (18 mg/3 1.2 mg SUBCUT QDAY 08/03/19 08/05/21 mL) subcutaneous pen injector (Victoza 2-Nigel) primidone 50 mg tablet 50 mg PO BID 08/03/19 08/05/21 amlodipine 5 mg tablet 5 mg PO DAILY #30 tab 08/06/19 08/05/21 fluticasone propionate 50 1 spray INTRANASAL DAILY 09/04/20 08/05/21 mcg/actuation nasal spray,suspension guaifenesin 200 mg tablet 200 mg PO Q4H 09/04/20 04/22/21 hydralazine 100 mg tablet 100 mg PO TID tab 09/04/20 08/05/21 metoprolol succinate 50 mg 50 mg PO BID 09/04/20 08/05/21 tablet,extended release 24 hr tacrolimus 1 mg capsule, 1 mg PO Q12H 09/04/20 08/05/21 immediate-release (Prograf) vitamin B complex (B 1 tab PO BID 09/04/20 08/05/21 Complex-Vitamin B12) calcitriol 0.25 mcg capsule 0.25 mcg PO DAILY 04/14/21 08/05/21 mycophenolate mofetil 250 mg 500 mg PO BID 04/14/21 08/05/21 capsule (CellCept) mupirocin 2 % topical ointment 1 applic TOPICAL TID #15 g 04/15/21 08/05/21 Previous Rx's Medication Instructions Recorded insulin aspart U-100 100 unit/mL 0 units (0 mL) SUBCUT 11/15/18 (3 mL) subcutaneous pen (Novolog 0800,1200,1700 #0 ml Flexpen U-100 Insulin aspart) ipratropium 0.5 mg-albuterol 3 mg 3 ml UPD Q6H #0 ml 11/15/18 (2.5 mg base)/3 mL nebulization soln tacrolimus 0.5 mg capsule, 1 mg PO DAILY #0 cap 11/15/18 immediate-release amlodipine 5 mg tablet 5 mg PO DAILY #30 tab 08/06/19 mupirocin 2 % topical ointment 1 applic TOPICAL TID #15 g 04/15/21 Allergies Allergy/AdvReac Type Severity Reaction Status Date / Time levofloxacin Allergy Mild Unknown Verified 11/29/21 19:42 sulfamethoxazole Allergy Mild Unknown Verified 11/29/21 19:42 [From Bactrim] trimethoprim [From Bactrim] Allergy Mild Unknown Verified 11/29/21 19:42 doxycycline Allergy Unknown Verified 11/29/21 19:42 clindamycin Allergy Skin Rash Verified 11/29/21 19:42 ibuprofen Allergy Verified 11/29/21 19:42 Penicillins Allergy SWELLING Verified 11/29/21 19:42 tree nut Allergy Verified 11/29/21 19:42 lisinopril AdvReac KIDNEY Verified 11/29/21 19:42 SHUT DOWN yaneth inhibitors Allergy Mild Skin Rash Uncoded 11/29/21 19:42 CATS & BIRDS AdvReac Intermediate WHEEZING Uncoded 11/29/21 19:42 General Stated Complaint: ThroatFB RADHA: 3 Review of Systems Constitutional Constitutional: Denies fever(s) Cardiovascular Cardiovascular: Denies chest pain and Denies dyspnea Respiratory Respiratory: Denies dyspnea Gastrointestinal Gastrointestinal: Denies abdominal pain, Denies nausea and Reports vomiting (Spitting up, not emptying stomach contents) Integumentary/Breasts Skin/Breast: Denies rash PFSH All Active Problems Esophageal foreign body (Acute) Food impaction of esophagus (Acute) Macrocytic anemia (Acute) Gastroparesis diabeticorum (Acute) Kidney transplant recipient (Acute) Chronic kidney disease (Chronic) Hypertension (Chronic) Hyperlipidemia (Chronic) CAD (coronary artery disease) (Chronic) GERD (gastroesophageal reflux disease) (Chronic) Asthma (Chronic) Chronic anxiety (Chronic) Chronic depression (Chronic) Status post bilateral below knee amputation (Chronic) Intention tremor (Chronic) Status post appendectomy (Acute) Physical medicine and rehabilitation procedures (Acute 06/27/13) Dysphagia (Acute) Infection of amputation stump of right lower extremity (Acute) CHF (congestive heart failure) (Acute) Diastolic CHF (Acute) CAP (community acquired pneumonia) (Acute) Acute kidney injury superimposed on chronic kidney disease (Acute) Uncontrolled insulin dependent diabetes mellitus (Acute) Ambulatory dysfunction (Acute) Discharge planning issues (Acute) DVT prophylaxis (Acute) Sepsis (Acute) MELISSA (obstructive sleep apnea) (Chronic) Left lower lobe pneumonia (Acute) Wenckebach second degree AV block (Acute) Fluid level behind tympanic membrane of left ear (Acute) Sensory hearing loss, bilateral (Acute) Tinnitus, bilateral (Acute) Osteoma of ear canal (Acute) Atrial fibrillation (Chronic) Kidney transplant recipient (Chronic) 2005 Medical History Adenomatous colon polyp Anxiety and depression Diabetes mellitus Erectile dysfunction GERD (gastroesophageal reflux disease) History of colon polyps HTN (hypertension) Hydrocele Hyperlipidemia Intention tremor Lumbar back pain Obesity MELISSA (obstructive sleep apnea) Personal history of allergy to other antibiotic agent Sciatica Stage 3 severe COPD by GOLD classification Tremor Tricuspid insufficiency Vitamin B 12 deficiency Surgical History Colonoscopy - MAC (02/01/17) EGD - MAC (04/02/16) History of below-knee amputation of both lower extremities 2011 History of colonoscopy (~10/2020) Hx of amputation below knee Kidney transplant recipient Family History Brother Personal history of malignant neoplasm Social History Smoking/Tobacco Use Status: Former Tobacco Use Quit Date: 07/25/90 Smoking risk assessment performed?: Yes Alcohol Intake: never Drug use: Never Substance use type: does not use Do you feel safe at home: Yes Do you feel safe in your relationship?: Yes Exam Const General: cooperative Orientation: alert and awake HENMT Head: normal to inspection, normocephalic and atraumatic Face and sinus: normal facial exam Mouth: moist mucous membranes Throat: posterior oropharynx normal Eyes Conjunctivae: conjunctivae normal Neck Neck: normal visual inspection, full ROM, trachea midline and supple Resp Effort & Inspection: normal respiratory effort and able to speak in complete sentences Auscultation: clear to auscultation bilaterally Cardio Rate: regular rate Rhythm: regular rhythm GI Inspection: obesity Palpation: soft, not firm, no guarding, no pulsatile masses and nontender Auscultation: normal bowel sounds Back/Spine/Pelvis Back: No back tenderness Skin General skin exam: no rashes or lesions noted Neuro General: patient alert, patient awake, moves all extremities and no focal motor deficits Cognition: normal cognition Speech: speech normal Sensory Exam: no sensory deficits noted Psych Appearance: grossly normal Mental Status: mental status grossly normal Course Vital Signs Vital signs: Vital Signs Temperature 37.1 C 11/29/21 19:37 Pulse 77 11/29/21 19:37 Respiratory Rate 18 11/29/21 19:37 Blood Pressure 152/109 H 11/29/21 19:37 Pulse Oximetry 99 11/29/21 19:37 Temperature 37.1 C 11/29/21 19:37 Temperature Source Skin 11/29/21 19:37 Pulse 77 11/29/21 19:37 Respiratory Rate 18 11/29/21 19:37 Respiratory Effort 11/29/21 19:41 Respiratory Pattern Normal 11/29/21 19:41 Blood Pressure 152/109 H 11/29/21 19:37 Pulse Oximetry 99 11/29/21 19:37 Oxygen Delivery Method Room Air 11/29/21 19:37 Oxygen Flow Rate 0 11/29/21 19:37 Pain Level 0 11/29/21 19:37 Lab/Test Results Lab/Test Results: Laboratory Tests Range/Units 11/29/21 11/29/21 11/29/21 21:05 21:05 21:05 WBC (4.4-10.8) 10^3/uL 8.43 RBC (4.36-5.78) 10^6/uL 2.67 L Hgb (13.5-17.5) g/dL 7.6 L Hct (40.0-50.0) % 25.9 L MCV (80-95) fL 97 H MCH (27.0-33.0) pg 28.5 MCHC (32.0-36.0) % 29.3 L RDW (11.8-14.1) % 15.1 H Plt Count (130-400) 10^3/uL 183 MPV (8.0-11.0) fL 8.5 Immature Gran % 0.4 Neutrophils % 66.8 Lymphocytes % 20.6 Monocytes % 7.6 Eosinophils % 4.0 Basophils % 0.6 Nucleated RBC % (0.0-0.3) % 0.0 Absolute Neutrophils (1.2-6.7) 10^3/uL 5.63 Absolute Lymphocytes (1.2-3.4) 10^3/uL 1.74 Absolute Monocytes (0.1-0.8) 10^3/uL 0.64 Absolute Eosinophils (0.0-0.7) 10^3/uL 0.34 Absolute Basophils (0.0-0.2) 10^3/uL 0.05 Sodium (136-145) mmol/L 138 Potassium (3.5-5.1) mmol/L 5.3 H Chloride (98-107) mmol/L 108 H Carbon Dioxide (21.0-32.0) mmol/L 20.9 L Anion Gap (3-11) mmol/L 9.1 BUN (7-18) mg/dL 42 H Creatinine (0.70-1.30) mg/dL 3.8 H* Estimated GFR/1.73 m2 (mL/min/1.73m2) 15.92 Glucose (74-106) mg/dL 316 H Calcium (8.5-10.1) mg/dL 8.3 L COVID-19 Source Nasal/Nares SARS-CoV-2 (PCR) (Negative) Negative
--- NOTE | 2021-11-29 22:34 | W.PM.HP.N ---
Date of service: 11/29/21 Time of Service: 22:35 Assessment and Plan Assessment and plan (1) Esophageal foreign body: Status: Acute Assessment and plan: -After discussing all risks, benefits and alternatives, informed consent was obtained for urgent EGD for removal of foreign body -COVID negative -Basic labs reviewed -Further disposition to be determined post operatively (2) GERD (gastroesophageal reflux disease): Status: Chronic (3) CAD (coronary artery disease): Status: Chronic (4) Hyperlipidemia: Status: Chronic (5) Hypertension: Status: Chronic Qualifiers: Hypertension type: essential hypertension Qualified Code(s): I10 - Essential (primary) hypertension (6) Chronic kidney disease: Status: Chronic Qualifiers: Chronic kidney disease stage: stage 3 (moderate) Qualified Code(s): N18.3 - Chronic kidney disease, stage 3 (moderate) (7) COPD (chronic obstructive pulmonary disease): Status: None (8) LEFT FOREARM AV FISTULA: Status: None (9) Kidney transplant recipient: Status: Acute (10) Gastroparesis diabeticorum: Status: Acute (11) Macrocytic anemia: Status: Acute (12) Dysphagia: Status: Acute (13) Tremor: History of Present Illness Narrative: 66 year old male with multiple medical comorbidities including renal transplant, bilateral BKA, CHF, chronic tremor, diabetes, morbid obesity, COPD and MELISSA who presented to the ER after choking on an apple slice. He reports he usually can eat apples without any issues but unfortunately a piece became stuck in his esophagus around 18:45 while eating dinner. The apple was peeled, despite glucagon, EZ granules and gulping a carbonated beverage he has been unable to completely swallow the apple. He is able to protect his airway and swallow some secretions but not all. CT was done to better localize foreign body and ensure no esophageal mass, perforation, etc was present. He has had this occur many times in the past, most recently in July but last required an EGD in February. Review of Systems Constitutional Constitutional: Reports system reviewed and no additional complaints, except as documented ENT Ears, Nose, Mouth, and Throat: Reports dysphagia, Denies hoarseness, Denies neck pain, Denies odynophagia and Denies sore throat Gastrointestinal Gastrointestinal: Reports dysphagia and Denies odynophagia Musculoskeletal Musculoskeletal: Denies neck pain PFSH All Active Problems Esophageal foreign body (Acute) Food impaction of esophagus (Acute) Macrocytic anemia (Acute) Gastroparesis diabeticorum (Acute) Kidney transplant recipient (Acute) Chronic kidney disease (Chronic) Hypertension (Chronic) Hyperlipidemia (Chronic) CAD (coronary artery disease) (Chronic) GERD (gastroesophageal reflux disease) (Chronic) Asthma (Chronic) Chronic anxiety (Chronic) Chronic depression (Chronic) Status post bilateral below knee amputation (Chronic) Intention tremor (Chronic) Status post appendectomy (Acute) Physical medicine and rehabilitation procedures (Acute 06/27/13) Dysphagia (Acute) Infection of amputation stump of right lower extremity (Acute) CHF (congestive heart failure) (Acute) Diastolic CHF (Acute) CAP (community acquired pneumonia) (Acute) Acute kidney injury superimposed on chronic kidney disease (Acute) Uncontrolled insulin dependent diabetes mellitus (Acute) Ambulatory dysfunction (Acute) Discharge planning issues (Acute) DVT prophylaxis (Acute) Sepsis (Acute) MELISSA (obstructive sleep apnea) (Chronic) Left lower lobe pneumonia (Acute) Wenckebach second degree AV block (Acute) Fluid level behind tympanic membrane of left ear (Acute) Sensory hearing loss, bilateral (Acute) Tinnitus, bilateral (Acute) Osteoma of ear canal (Acute) Atrial fibrillation (Chronic) Kidney transplant recipient (Chronic) 2005 Medical History Adenomatous colon polyp Anxiety and depression Diabetes mellitus Erectile dysfunction GERD (gastroesophageal reflux disease) History of colon polyps HTN (hypertension) Hydrocele Hyperlipidemia Intention tremor Lumbar back pain Obesity MELISSA (obstructive sleep apnea) Personal history of allergy to other antibiotic agent Sciatica Stage 3 severe COPD by GOLD classification Tremor Tricuspid insufficiency Vitamin B 12 deficiency Surgical History Colonoscopy - MAC (02/01/17) EGD - MAC (04/02/16) History of below-knee amputation of both lower extremities 2010 History of colonoscopy (~10/2020) Hx of amputation below knee Kidney transplant recipient Family History Brother Personal history of malignant neoplasm Social History Smoking/Tobacco Use Status: Former Tobacco Use Quit Date: 01/01/91 Smoking risk assessment performed?: Yes Alcohol Intake: never Drug use: Never Substance use type: does not use Do you feel safe at home: Yes Do you feel safe in your relationship?: Yes Meds Allergies and Home Medications Allergies Allergy/AdvReac Type Severity Reaction Status Date / Time levofloxacin Allergy Mild Unknown Verified 11/29/21 19:42 sulfamethoxazole Allergy Mild Unknown Verified 11/29/21 19:42 [From Bactrim] trimethoprim [From Bactrim] Allergy Mild Unknown Verified 11/29/21 19:42 doxycycline Allergy Unknown Verified 11/29/21 19:42 clindamycin Allergy Skin Rash Verified 11/29/21 19:42 ibuprofen Allergy Verified 11/29/21 19:42 Penicillins Allergy SWELLING Verified 11/29/21 19:42 tree nut Allergy Verified 11/29/21 19:42 lisinopril AdvReac KIDNEY Verified 11/29/21 19:42 SHUT DOWN yaneth inhibitors Allergy Mild Skin Rash Uncoded 11/29/21 19:42 CATS & BIRDS AdvReac Intermediate WHEEZING Uncoded 11/29/21 19:42 Home Medications Medication Instructions Recorded Confirmed Type aspirin 81 mg tablet,delayed 81 mg PO DAILY 10/31/12 08/05/21 History release (Aspirin Low Dose) montelukast 10 mg tablet 10 mg PO DAILY tab-cap 10/31/12 08/05/21 History omeprazole 40 mg capsule,delayed 40 mg PO DAILY 10/31/12 08/05/21 History release (Prilosec) multivitamin (Daily Multi-Vitamin) 1 ea PO DAILY 05/10/13 08/05/21 History cholecalciferol (vitamin D3) 50 2,000 unit PO DAILY 01/16/16 08/05/21 History mcg (2,000 unit) tablet (Vitamin D3) fluticasone propionate 50 2 spry NS DAILY PRN 01/16/16 08/05/21 History mcg/actuation nasal spray,suspension atorvastatin 20 mg tablet (Lipitor) 1 tab PO DAILY 02/01/17 08/05/21 History albuterol sulfate 90 mcg/actuation 90 mcg INHALATION 4-6XD 05/04/18 08/05/21 History aerosol inhaler (Ventolin HFA) folic acid 1 mg tablet 1 mg PO DAILY 06/12/18 08/05/21 History mycophenolate mofetil 250 mg 500 mg PO BID 11/12/18 08/05/21 History capsule (CellCept) insulin aspart U-100 100 unit/mL 0 units (0 mL) SUBCUT 11/15/18 08/05/21 Rx (3 mL) subcutaneous pen (Novolog 0800,1200,1700 #0 ml Flexpen U-100 Insulin aspart) ipratropium 0.5 mg-albuterol 3 mg 3 ml UPD Q6H #0 ml 11/15/18 08/05/21 Rx (2.5 mg base)/3 mL nebulization soln tacrolimus 0.5 mg capsule, 1 mg PO DAILY #0 cap 11/15/18 08/05/21 Rx immediate-release insulin detemir U-100 100 unit/mL 55 units SUBCUT BID 08/03/19 08/05/21 History (3 mL) subcutaneous pen (Levemir FlexTouch U-100 Insulin) liraglutide 0.6 mg/0.1 mL (18 mg/3 1.2 mg SUBCUT QDAY 08/03/19 08/05/21 History mL) subcutaneous pen injector ([employer] 2-Nigel) primidone 50 mg tablet 50 mg PO BID 08/03/19 08/05/21 History amlodipine 5 mg tablet 5 mg PO DAILY #30 tab 08/06/19 08/05/21 Rx fluticasone propionate 50 1 spray INTRANASAL DAILY 09/04/20 08/05/21 History mcg/actuation nasal spray,suspension guaifenesin 200 mg tablet 200 mg PO Q4H 09/04/20 04/22/21 History hydralazine 100 mg tablet 100 mg PO TID tab 09/04/20 08/05/21 History metoprolol succinate 50 mg 50 mg PO BID 09/04/20 08/05/21 History tablet,extended release 24 hr tacrolimus 1 mg capsule, 1 mg PO Q12H 09/04/20 08/05/21 History immediate-release (Prograf) vitamin B complex (B 1 tab PO BID 09/04/20 08/05/21 History Complex-Vitamin B12) calcitriol 0.25 mcg capsule 0.25 mcg PO DAILY 04/14/21 08/05/21 History mycophenolate mofetil 250 mg 500 mg PO BID 04/14/21 08/05/21 History capsule (CellCept) mupirocin 2 % topical ointment 1 applic TOPICAL TID #15 g 04/15/21 08/05/21 Rx Exam Const General: cooperative, comfortable and no acute distress HENMT Head: normal to inspection, normocephalic and atraumatic Resp Effort & Inspection: normal respiratory effort, no audible wheezes, not labored, no respiratory distress, no stridor and not tachypneic Cardio Rate: regular rate Rhythm: regular rhythm GI Inspection: obesity Palpation: soft Neuro General: patient alert, patient awake and patient oriented x3 Motor: tremor Extrem Right lower extremity: lower leg (s/p bilateral BKA) Left lower extremity: lower leg (s/p bilateral BKA) Results Labs Result diagrams: 11/29/21 21:05 11/29/21 21:05 Labs: Laboratory Results - last 24 hr 11/29/21 11/29/21 11/29/21 21:05 21:05 21:05 WBC 8.43 RBC 2.67 L Hgb 7.6 L Hct 25.9 L MCV 97 H MCH 28.5 MCHC 29.3 L RDW 15.1 H Plt Count 183 MPV 8.5 Immature Gran % 0.4 Neutrophils % 66.8 Lymphocytes % 20.6 Monocytes % 7.6 Eosinophils % 4.0 Basophils % 0.6 Nucleated RBC % 0.0 Absolute Neutrophils 5.63 Absolute Lymphocytes 1.74 Absolute Monocytes 0.64 Absolute Eosinophils 0.34 Absolute Basophils 0.05 Sodium 138 Potassium 5.3 H Chloride 108 H Carbon Dioxide 20.9 L Anion Gap 9.1 BUN 42 H Creatinine 3.8 H* Estimated GFR/1.73 m2 15.92 Glucose 316 H Calcium 8.3 L COVID-19 Source Nasal/Nares SARS-CoV-2 (PCR) Negative Last Vital Signs Temp 98.8 F 11/29/21 19:37 Pulse 77 11/29/21 19:37 Resp 18 11/29/21 19:37 BP 152/109 H 11/29/21 19:37 Pulse Ox 99 11/29/21 19:37
[2021-11-29 22:55] VITALS: BP 156/70; PULSE 70; RESP 20; TEMP 37; O2SAT 97
--- NOTE | 2021-11-29 22:56 | W.ANESPRE ---
General Info Date of Service Date Performed: 11/29/21 Height: 5 ft 5 in Weight: 127.006 kg Body Mass Index (BMI): 46.5 Meds Allergies and Home Medications Allergies Allergy/AdvReac Type Severity Reaction Status Date / Time levofloxacin Allergy Mild Unknown Verified 11/29/21 19:42 sulfamethoxazole Allergy Mild Unknown Verified 11/29/21 19:42 [From Bactrim] trimethoprim [From Bactrim] Allergy Mild Unknown Verified 11/29/21 19:42 doxycycline Allergy Unknown Verified 11/29/21 19:42 clindamycin Allergy Skin Rash Verified 11/29/21 19:42 ibuprofen Allergy Verified 11/29/21 19:42 Penicillins Allergy SWELLING Verified 11/29/21 19:42 tree nut Allergy Verified 11/29/21 19:42 lisinopril AdvReac KIDNEY Verified 11/29/21 19:42 SHUT DOWN yaneth inhibitors Allergy Mild Skin Rash Uncoded 11/29/21 19:42 CATS & BIRDS AdvReac Intermediate WHEEZING Uncoded 11/29/21 19:42 Home Medication Medication Instructions Recorded aspirin 81 mg tablet,delayed 81 mg PO DAILY 10/31/12 release (Aspirin Low Dose) montelukast 10 mg tablet 10 mg PO DAILY tab-cap 10/31/12 omeprazole 40 mg capsule,delayed 40 mg PO DAILY 10/31/12 release (Prilosec) multivitamin (Daily Multi-Vitamin) 1 ea PO DAILY 05/10/13 cholecalciferol (vitamin D3) 50 2,000 unit PO DAILY 01/16/16 mcg (2,000 unit) tablet (Vitamin D3) fluticasone propionate 50 2 spry NS DAILY PRN 01/16/16 mcg/actuation nasal spray,suspension atorvastatin 20 mg tablet (Lipitor) 1 tab PO DAILY 02/01/17 albuterol sulfate 90 mcg/actuation 90 mcg INHALATION 4-6XD 05/04/18 aerosol inhaler (Ventolin HFA) folic acid 1 mg tablet 1 mg PO DAILY 06/12/18 mycophenolate mofetil 250 mg 500 mg PO BID 11/12/18 capsule (CellCept) insulin aspart U-100 100 unit/mL 0 units (0 mL) SUBCUT 11/15/18 (3 mL) subcutaneous pen (Novolog 0800,1200,1700 #0 ml Flexpen U-100 Insulin aspart) ipratropium 0.5 mg-albuterol 3 mg 3 ml UPD Q6H #0 ml 11/15/18 (2.5 mg base)/3 mL nebulization soln tacrolimus 0.5 mg capsule, 1 mg PO DAILY #0 cap 11/15/18 immediate-release insulin detemir U-100 100 unit/mL 55 units SUBCUT BID 08/03/19 (3 mL) subcutaneous pen (Levemir FlexTouch U-100 Insulin) liraglutide 0.6 mg/0.1 mL (18 mg/3 1.2 mg SUBCUT QDAY 08/03/19 mL) subcutaneous pen injector ([employer] 2-Nigel) primidone 50 mg tablet 50 mg PO BID 08/03/19 amlodipine 5 mg tablet 5 mg PO DAILY #30 tab 08/06/19 fluticasone propionate 50 1 spray INTRANASAL DAILY 09/04/20 mcg/actuation nasal spray,suspension guaifenesin 200 mg tablet 200 mg PO Q4H 09/04/20 hydralazine 100 mg tablet 100 mg PO TID tab 09/04/20 metoprolol succinate 50 mg 50 mg PO BID 09/04/20 tablet,extended release 24 hr tacrolimus 1 mg capsule, 1 mg PO Q12H 09/04/20 immediate-release (Prograf) vitamin B complex (B 1 tab PO BID 09/04/20 Complex-Vitamin B12) calcitriol 0.25 mcg capsule 0.25 mcg PO DAILY 04/14/21 mycophenolate mofetil 250 mg 500 mg PO BID 04/14/21 capsule (CellCept) mupirocin 2 % topical ointment 1 applic TOPICAL TID #15 g 04/15/21 Current Visit Medications: Current Medications Generic Name Dose Route Start Last Admin Trade Name Freq PRN Reason Stop Dose Admin Sodium Chloride 500 mls @ 0 mls/hr 11/29/21 19:53 Saline 500ml Bag IV PRN PRN As Directed IV Miscellaneous Supplies 1 each 11/29/21 20:00 Iv Access IV DIRECTED [facility] IV Miscellaneous Supplies 1 each 11/29/21 21:00 Iv Access IV DIRECTED [facility] Sodium Chloride 0 ml 11/29/21 19:53 Normal Saline Flush 10 Ml Syr IVP PRN PRN PFSH Active Problems Active Problems: Problem Status Onset Code Esophageal foreign body T18.108A Food impaction of esophagus T18.128A Macrocytic anemia D53.9 Gastroparesis diabeticorum E11.43, K31.84 Kidney transplant recipient Z94.0 Chronic kidney disease N18.9 Hypertension I10 Hyperlipidemia E78.5 CAD (coronary artery disease) I25.10 GERD (gastroesophageal reflux disease) K21.9 Asthma J45.909 Chronic anxiety F41.9 Chronic depression F32.9 Status post bilateral below knee amputation Z89.512, Z89.511 Intention tremor G25.2 Status post appendectomy Z90.49 Physical medicine and rehabilitation procedures 06/27/13 [id number] Dysphagia R13.10 Infection of amputation stump of right lower extremity T87.43 Hyperkalemia E87.5 CHF (congestive heart failure) I50.9 Diastolic CHF I50.30 CAP (community acquired pneumonia) J18.9 Acute kidney injury superimposed on chronic kidney disease N17.9, N18.9 Uncontrolled insulin dependent diabetes mellitus E11.65, Z79.4 Ambulatory dysfunction R26.2 Discharge planning issues Z02.9 DVT prophylaxis Sepsis A41.9 MELISSA (obstructive sleep apnea) G47.33 Left lower lobe pneumonia J18.9 Wenckebach second degree AV block I44.1 Fluid level behind tympanic membrane of left ear H65.92 Sensory hearing loss, bilateral H90.3 Tinnitus, bilateral H93.13 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 Atrial fibrillation I48.91 Kidney transplant recipient Z94.0 Medical History Medical History Adenomatous colon polyp Anxiety and depression Diabetes mellitus Erectile dysfunction GERD (gastroesophageal reflux disease) History of colon polyps HTN (hypertension) Hydrocele Hyperlipidemia Intention tremor Lumbar back pain Obesity MELISSA (obstructive sleep apnea) Personal history of allergy to other antibiotic agent Sciatica Stage 3 severe COPD by GOLD classification Tremor Tricuspid insufficiency Vitamin B 12 deficiency Surgical History Surgical History Colonoscopy - MAC (02/01/17) EGD - MAC (04/02/16) History of below-knee amputation of both lower extremities 2010 History of colonoscopy (~10/2020) Hx of amputation below knee Kidney transplant recipient Tobacco Smoking/Tobacco Use Status: Former Tobacco Use Alcohol Alcohol Intake: never Substance Use Substance use: Never Substance use type: does not use Vital Signs and Lab Results Vital Signs Most Recent Vital Signs in EMR: Most Recent Vital Signs Temp Pulse Resp BP Pulse Ox 37.1 C 77 18 152/109 H 99 11/29/21 19:37 11/29/21 19:37 11/29/21 19:37 11/29/21 19:37 11/29/21 19:37 Lab Results Result Diagrams: 11/29/21 21:11/29/21 21:05 Blood Type / Crossmatch: No Data to Display Complete Blood Count: White Blood Count 8.43 10^3/uL (4.4-10.8) 11/29/21 21:05 11/29/21 Red Blood Count 2.67 10^6/uL (4.36-5.78) L 11/29/21 21:05 11/29/21 Hemoglobin 7.6 g/dL (13.5-17.5) L 11/29/21 21:05 11/29/21 Hematocrit 25.9 % (40.0-50.0) L 11/29/21 21:05 11/29/21 Platelet Count 183 10^3/uL (130-400) 11/29/21 21:05 11/29/21 Complete Metabolic Panel: Sodium Level 138 mmol/L (136-145) 11/29/21 21:05 11/29/21 Potassium Level 5.3 mmol/L (3.5-5.1) H 11/29/21 21:05 11/29/21 Chloride Level 108 mmol/L (98-107) H 11/29/21 21:11/29/21 Carbon Dioxide Level 20.9 mmol/L (21.0-32.0) L 11/29/21 21:05 11/29/21 Blood Urea Nitrogen 42 mg/dL (7-18) H 11/29/21 21:05 11/29/21 Creatinine 3.8 mg/dL (0.70-1.30) H* 11/29/21 21:05 11/29/21 Estimated GFR/1.73 m2 15.92 (mL/min/1.73m2) 11/29/21 21:05 11/29/21 Magnesium Level 1.9 mg/dL (1.8-2.4) 11/18/21 11:15 11/18/21 Calcium Level 8.3 mg/dL (8.5-10.1) L 11/29/21 21:05 11/29/21 Albumin 2.8 g/dL (3.4-5.0) L 11/26/21 11:00 11/26/21 Glucose Level 316 mg/dL (74-106) H 11/29/21 21:05 11/29/21 Liver Function Panel: Alanine Aminotransferase (ALT/SGPT) 18 U/L (16-63) 11/26/21 11:00 11/26/21 Aspartate Amino Transf (AST/SGOT) 11 U/L (15-37) L 11/26/21 11:00 11/26/21 Coagulation Panel: No Data to Display Cardiac Panel: No Data to Display Arterial Blood Gas: No Data to Display Venous Blood Gas: No Data to Display Pancreas Panel: No Data to Display Thyroid Panel: No Data to Display Infectious Disease: Coronavirus (COVID-19)(PCR) Negative (Negative) 11/29/21 21:05 11/29/21 Coronavirus 2019 Source Nasal/Nares 11/29/21 21:05 11/29/21 Blood Cultures: No Data to Display Toxicology Panel: No Data to Display Imaging and Studies Imaging and Studies Study information below may be from another EMR and interpreted by another provider. Please see original notes in EMR for more complete details. EKG Summary: Conclusion Sinus bradycardia. Prolonged NV interval. Nonspecific IVCD Left ventricular hypertrophy Stress Test Summary: 1. Myocardial perfusion imaging: The left ventricle is mildly dilated. No myocardial perfusion defects noted. 2. The calculated left ventricular ejection fraction after stress: 33%. LV global systolic function is moderate to severely reduced. Diffuse left ventricular regional motion abnormalities. Recommendations: 1. Transthoracic echocardiography should be performed in order to evaluate LV function. 2. If abnormal LV function on echocardiogram, cardiology consult to discuss cardiac catheterization. Echocardiogram Summary: Impressions: Low-normal LVEF. Recent LVEF estimate on MPI was false-low, likely imaging artifact. Summary: 1. Left ventricle: The cavity size was normal. Wall thickness was increased in a pattern of mild LVH. Systolic function was at the lower limits of normal. The estimated ejection fraction was 50-55%. Wall motion was normal; there were no regional wall motion abnormalities. 2. Mitral valve: Moderate focal calcification of the posterior leaflet. 3. Right ventricle: The cavity size was normal. Wall thickness was normal. Systolic function was normal. 4. Tricuspid valve: There was mild-moderate regurgitation. Anesthesia Assessment and Plan Anesthesia History Personal History: No History of Anesthesia Complications Family History: No Family History of Anesthesia Complications Exercise Tolerance Exercise Tolerance: Metabolic Equivalents<4 Pertinent Negatives Pertinent Negatives: No Symptoms of GERD Cardiac & Pulmonary Exam Cardiac Exam: Normal S1/S2 Heart Sounds Pulmonary Exam: Clear Bilateral Breath Sounds Implantable Cardiac Device Does patient have a Pacemaker or an ICD?: No Airway Exam Known Difficult Airway: No Mallampati Class: 2 Mouth Opening: Normal (> 3cm) Thyromental Distance: Greater than 3 cm Neck Range of Motion: Full ROM Neck Circumference: Normal Teeth Condition: Removable Dentures/Plates Upper and Removable Dentures/Plates Lower ASA Classification ASA Score: ASA 4 Emergency Case?: Yes NPO Status NPO Status: NPO Clears >2 hours, Solids >8 hours Anesthesia Plan Resuscitation Status: Full Code Anesthesia Technique: General Anesthesia Airway Planned: Endotracheal Tube Monitors Used: Standard Monitors
[2021-11-29 22:58] LABS: Diff Comment RBC Morph Reviewed; RBC Morphology Normal
[2021-11-29 23:22] VITALS: BMI 46.5
[2021-11-29] MEDS: Lactated Ringers 1,000 ML 30 ML IV (23:32)
--- NOTE | 2021-11-29 23:58 | W.PM.ENDDOP ---
Date of service: 11/29/21 Time of Service: 23:58 Endoscopy Report DATE OF PROCEDURE: 11/30/21 PRE-OP DIAGNOSIS: esophageal foreign body POST-OP DIAGNOSIS: same PROCEDURE: EGD SURGEON: Patti Haas ANESTHESIA TYPE: General LMA/ETT ESTIMATED BLOOD LOSS: 0 PATHOLOGY: none sent COMPLICATIONS: None DISPOSITION: floor INDICATIONS: Patient with foreign body sensation, CT obtained revealing small foreign body in upper esophagus with mild surrounding edema FINDINGS: Small piece of apple just below UES, passed easily into stomach with scope advancement PROCEDURE DESCRIPTION: Patient was met and identified in the holding area and subsequently taken back into the operating room. A timeout was performed confirming the correct patient and procedure. After adequate induction of general anesthesia, a bite block was placed and the endoscope was advanced into the esophagus easily. The oropharynx appeared normal. Just inferior to the upper esophageal sphincter was a small piece of apple. The apple moved easily downward with gentle scope advancement. There was additional thick secretions and pieces of apple throughout the lower portion of the esophagus as well but these were not obstructing the lumen. The scope entered the stomach easily where other pieces of food remained. The scope was carefully retracted and esophagus confirmed to be clear of any other debris. Some irritation was noted around the area where the apple piece was lodged but no obvious perforation or full thickness injury was evident. Patient was subsequently awakened and transferred to the floor to recover. He was encouraged to follow up with a dentist to see about getting lower dentures as he only has upper teeth. He may be discharged home once recovered from anesthesia. The patient tolerated the procedure well without any complications, see attached photographs from EGD.
[2021-11-29 23:59] VITALS: BP 120/105; PULSE 82; RESP 16; O2SAT 100
--- NOTE | 2021-11-30 | W.PM.DS.N ---
Date of service: 11/30/21 Time of Service: 00:00 DS: Diagnosis Discharge Diagnosis (1) Esophageal foreign body: Status: Acute Asessment and Plan: -s/p EGD for foreign body removal, resolved -Maintain diet of soft, chopped food -Follow up with dentist for lower dentures (2) GERD (gastroesophageal reflux disease): Status: Chronic (3) CAD (coronary artery disease): Status: Chronic (4) Hyperlipidemia: Status: Chronic (5) Hypertension: Status: Chronic (6) Chronic kidney disease: Status: Chronic (7) COPD (chronic obstructive pulmonary disease): Status: None (8) LEFT FOREARM AV FISTULA: Status: None (9) Kidney transplant recipient: Status: Acute (10) Gastroparesis diabeticorum: Status: Acute (11) Macrocytic anemia: Status: Acute (12) Dysphagia: Status: Acute (13) Tremor: Discharge Plan Disposition Patient Disposition: HOME Condition: Stable Discharge Details Reason For Visit: esophageal foreign body Attending Provider: Patti Haas Primary Care Provider: Violetta Sanford Home Meds and New Rx's Prescriptions: Continued folic acid 1 mg tablet 1 mg PO DAILY 0RF mycophenolate mofetil [CellCept] 250 mg capsule 500 mg PO BID 0RF calcitriol 0.25 mcg capsule 0.25 mcg PO DAILY 0RF mupirocin 2 % ointment 1 applic topical TID Qty: 15 0RF aspirin [Aspirin Low Dose] 81 MG tablet,delayed release (DR/EC) 81 mg PO DAILY 0RF omeprazole [Prilosec] 40 MG capsule,delayed release(DR/EC) 40 mg PO DAILY 0RF montelukast 10 MG tablet 10 mg PO DAILY 0RF multivitamin [Daily Multi-Vitamin] 1 EACH tablet 1 ea PO DAILY 0RF hydralazine 100 mg tablet 100 mg PO TID 0RF metoprolol succinate 50 mg tablet extended release 24 hr 50 mg PO BID 0RF guaifenesin 200 mg tablet 200 mg PO Q4H 0RF fluticasone propionate 50 mcg/actuation spray,suspension 1 spray intranasal DAILY 0RF Rx Instructions: administer into each nostril vitamin B complex [B Complex-Vitamin B12] Tablet 1 tab PO BID 0RF tacrolimus [Prograf] 1 mg capsule 1 mg PO Q12H 0RF cholecalciferol (vitamin D3) [Vitamin D3] 2,000 UNIT tablet 2,000 unit PO DAILY 0RF fluticasone propionate 16 GM spray,suspension 2 spry NS DAILY PRN0RF albuterol sulfate [Ventolin HFA] 90 mcg/actuation Hfa Aerosol Inhaler 90 mcg Inhalation 4-6XD 0RF mycophenolate mofetil [CellCept] 250 mg Capsule 500 mg PO BID 0RF ipratropium-albuterol 0.5 mg-3 mg(2.5 mg base)/3 mL Solution For Nebulization 3 ml UPD Q6H Qty: 0 0RF tacrolimus 0.5 mg Capsule 1 mg PO DAILY Qty: 0 0RF Rx Instructions: takes BID insulin aspart U-100 [Novolog Flexpen U-100 Insulin] 100 unit/mL Insulin Pen 0 units subcut 0800,1200,1700 Qty: 0 0RF atorvastatin [Lipitor] 20 MG tablet 1 tab PO DAILY 0RF primidone 50 mg Tablet 50 mg PO BID 0RF Rx Instructions: 08/16/20, 07/26 tab bid Victoza 2-Nigel 0.6 mg/0.1 mL (18 mg/3 mL) Pen Injector 1.2 mg SUBCUT QDAY 0RF Levemir FlexTouch U-100 Insuln 100 unit/mL (3 mL) insulin pen 55 units subcut BID 0RF amlodipine 5 mg Tablet 5 mg PO DAILY Qty: 30 2RF Discharge Instructions Additional Instructions: Chew food well, soft foods, small bites Follow up with dentist to obtain lower dentures to assist with chewing High risk of aspiration and possibly if this continues to happen while eating without adequate dentition Activity:: Activity as Tolerated Diet:: soft, bite size Discharge Orders Discharge Orders: Discharge Order (Routine); Ordered 11/30/21 Ordered By: Patti Haas Discharge Data Discharge Date/Time-TO BE ENTERED AT DEPARTURE: 11/29/21 23:35 Discharge Comment: Once recovered from anesthesia DS: Summary Time Spent with Patient providing and/or coordinating discharge services: Less than 30 minutes Status at Discharge Functional status at discharge: independent ambulation Overall status at discharge: patient is back to baseline Mental Status: mental status grossly normal Speech and Movement: speech and movement normal Mood: congruent mood Affect: normal affect Exam Const General: cooperative, comfortable and no acute distress HENMT Head: normal to inspection, normocephalic and atraumatic Resp Effort & Inspection: normal respiratory effort, no audible wheezes, not labored, no respiratory distress, no stridor and not tachypneic Cardio Rate: regular rate Rhythm: regular rhythm GI Inspection: obesity Palpation: soft Neuro General: patient alert, patient awake and patient oriented x3 Motor: tremor Extrem Right lower extremity: lower leg (s/p bilateral BKA) Left lower extremity: lower leg (s/p bilateral BKA) Psych Mental Status: mental status grossly normal Speech and Movement: speech and movement normal Mood: congruent mood Affect: normal affect DS: Data Vitals/I&O Vitals and I&O: Vital Signs Temperature 98.6 F 11/29/21 22:55 Temperature Source Oral 11/29/21 22:55 Pulse 70 11/29/21 22:55 Respiratory Rate 20 11/29/21 22:55 Respiratory Effort 11/29/21 19:41 Respiratory Pattern Normal 11/29/21 19:41 Blood Pressure 156/70 H 11/29/21 22:55 Pulse Oximetry 97 11/29/21 22:55 Oxygen Delivery Method Room Air 11/29/21 22:55 Oxygen Flow Rate 0 11/29/21 22:55 Pain Level 0 11/29/21 19:37 Intake & Output 11/29/21 11/29/21 11/30/21 11:59 23:59 11:59 Intake Total 100 / 100 Output Total 250 / 250 Balance -150 / -150 Weight 280 lb Intake: IV 100 / 100 Output: Urine 250 / 250 Data Completed and Pending Labs on day of discharge: Labs from last 24 hours 11/29/21 11/29/21 11/29/21 21:05 21:05 21:05 WBC 8.43 RBC 2.67 L Hgb 7.6 L Hct 25.9 L MCV 97 H MCH 28.5 MCHC 29.3 L RDW 15.1 H Plt Count 183 MPV 8.5 Immature Gran % 0.4 Neutrophils % 66.8 Lymphocytes % 20.6 Monocytes % 7.6 Eosinophils % 4.0 Basophils % 0.6 Nucleated RBC % 0.0 Absolute Neutrophils 5.63 Absolute Lymphocytes 1.74 Absolute Monocytes 0.64 Absolute Eosinophils 0.34 Absolute Basophils 0.05 RBC Morphology Normal Sodium 138 Potassium 5.3 H Chloride 108 H Carbon Dioxide 20.9 L Anion Gap 9.1 BUN 42 H Creatinine 3.8 H* Estimated GFR/1.73 m2 15.92 Glucose 316 H Calcium 8.3 L COVID-19 Source Nasal/Nares SARS-CoV-2 (PCR) Negative PFSH All Active Problems Esophageal foreign body (Acute) Food impaction of esophagus (Acute) Macrocytic anemia (Acute) Gastroparesis diabeticorum (Acute) Kidney transplant recipient (Acute) Chronic kidney disease (Chronic) Hypertension (Chronic) Hyperlipidemia (Chronic) CAD (coronary artery disease) (Chronic) GERD (gastroesophageal reflux disease) (Chronic) Asthma (Chronic) Chronic anxiety (Chronic) Chronic depression (Chronic) Status post bilateral below knee amputation (Chronic) Intention tremor (Chronic) Status post appendectomy (Acute) Physical medicine and rehabilitation procedures (Acute 06/27/13) Dysphagia (Acute) Infection of amputation stump of right lower extremity (Acute) CHF (congestive heart failure) (Acute) Diastolic CHF (Acute) CAP (community acquired pneumonia) (Acute) Acute kidney injury superimposed on chronic kidney disease (Acute) Uncontrolled insulin dependent diabetes mellitus (Acute) Ambulatory dysfunction (Acute) Discharge planning issues (Acute) DVT prophylaxis (Acute) Sepsis (Acute) MELISSA (obstructive sleep apnea) (Chronic) Left lower lobe pneumonia (Acute) Wenckebach second degree AV block (Acute) Fluid level behind tympanic membrane of left ear (Acute) Sensory hearing loss, bilateral (Acute) Tinnitus, bilateral (Acute) Osteoma of ear canal (Acute) Atrial fibrillation (Chronic) Kidney transplant recipient (Chronic) 2005 Medical History Adenomatous colon polyp Anxiety and depression Diabetes mellitus Erectile dysfunction GERD (gastroesophageal reflux disease) History of colon polyps HTN (hypertension) Hydrocele Hyperlipidemia Intention tremor Lumbar back pain Obesity MELISSA (obstructive sleep apnea) Personal history of allergy to other antibiotic agent Sciatica Stage 3 severe COPD by GOLD classification Tremor Tricuspid insufficiency Vitamin B 12 deficiency Surgical History Colonoscopy - MAC (02/01/17) EGD - MAC (04/02/16) History of below-knee amputation of both lower extremities 2010 History of colonoscopy (~10/2020) Hx of amputation below knee Kidney transplant recipient Family History Brother Personal history of malignant neoplasm Social History Smoking/Tobacco Use Status: Former Tobacco Use Quit Date: 07/25/90 Smoking risk assessment performed?: Yes Alcohol Intake: never Drug use: Never Substance use type: does not use Do you feel safe at home: Yes Do you feel safe in your relationship?: Yes
[2021-11-30 00:04] VITALS: BP 139/61; PULSE 80; RESP 16; O2SAT 100
--- NOTE | 2021-11-30 00:07 | W.ANESPOSTOP ---
Postoperative Evaluation Date, Time and Location Date Performed: 11/30/21 Time Performed: 00:08 Patient Location: PACU Vital Signs Most Recent Imported Vital Signs: Most Recent Vital Signs Temp Pulse Resp BP Pulse Ox 37.0 C 80 16 139/61 100 11/29/21 22:55 11/30/21 00:04 11/30/21 00:04 11/30/21 00:04 11/30/21 00:04 Pain Score Most Recent Pain Score: Most Recent Pain Score Pain Level 0 11/29/21 19:37 Assessment Mental Status: Awake (Alert & Oriented to Patient Baseline) Airway and Respiratory Function: Patent airway with normal (patient baseline) respiratory exam Cardiovascular Function: Hemodynamically Stable Hydration Status: Adequately Hydrated Nausea & Vomiting: No Nausea or Vomiting Pain: Pt. Denies Any Pain Peripheral Nerve Block: Patient did not receive a nerve block
[2021-11-30 00:08] VITALS: BP 152/65; PULSE 82; RESP 16; O2SAT 98
[2021-11-30 00:29] VITALS: BP 144/76; PULSE 72; RESP 20; TEMP 37.2; O2SAT 98
== END 2021-11-30 01:09 | disposition home or self-care (01) ==
LOC: ER 22:44 → SUR 23:35
PROVIDERS: Physician Assistant; PCP Family Medicine; Visit Provider Surgery
PROC: 0DC68ZZ Extirpation of Matter from Stomach, Via Natural or Artificial Opening Endoscopic (ICD-10-PCS; CPT 43247; principal; 2021-11-29 23:10)
DX: T18.128A Food in esophagus causing other injury, initial encounter (principal); K21.9 Gastro-esophageal reflux disease without esophagitis; K31.84 Gastroparesis; I25.10 Atherosclerotic heart disease of native coronary artery without angina pectoris; E78.5 Hyperlipidemia, unspecified; I12.9 Hypertensive chronic kidney disease with stage 1 through stage 4 chronic kidney disease, or unspecified chronic kidney disease; N18.30 Chronic kidney disease, stage 3 unspecified; J44.9 Chronic obstructive pulmonary disease, unspecified; E11.22 Type 2 diabetes mellitus with diabetic chronic kidney disease; E11.43 Type 2 diabetes mellitus with diabetic autonomic (poly)neuropathy; Z94.0 Kidney transplant status; R25.1 Tremor, unspecified; D53.9 Nutritional anemia, unspecified
CPT/HCPCS: 43247; 71250; 80048; 87635; 85025; J1610

== ENCOUNTER 2021-12-16 04:27 | Outpatient (CLI) | payer MEDICARE, OTHER, SELFPAY ==
[2021-12-16 11:31] LABS: Bilirubin Negative (Negative); Blood Negative (Negative); Clarity Clear (Clear); Glucose Negative (Negative); Ketones Negative (Negative); Leukocyte Esterase Negative (Negative); Nitrite Negative (Negative); Urobilinogen 0.2 EU/dL (Up TO 0.2); pH 5.5 (5-8)
[2021-12-16 11:32] LABS: Abs Immature Grans 0.02 10^3/uL (0.0-0.06); Absolute Basophil Count 0.05 10^3/uL (0.0-0.2); Absolute Eosinophil Count 0.28 10^3/uL (0.0-0.7); Absolute Lymphocyte Count 1.71 10^3/uL (1.2-3.4); Absolute Monocyte Count 0.45 10^3/uL (0.1-0.8); Basophils % 0.8; Eosinophils % 4.4; HCT 27.6 % (40.0-50.0); HGB 8.1 g/dL (13.5-17.5); Immature Grans % 0.3; Lymphocytes % 27.1; MCH 28.9 pg (27.0-33.0); MCHC 29.3 % (32.0-36.0); MCV 99 fL (80-95); MPV 8.1 fL (8.0-11.0); Monocytes % 7.1; Neutrophils % 60.3; Platelet Count 189 10^3/uL (130-400); RDW 15.5 % (11.8-14.1); RDW-SD 55.7 fL; WBC 6.31 10^3/uL (4.4-10.8)
[2021-12-16 11:47] LABS: Bacteria Rare HPF (Negative); C & S Indicated? No; Casts Negative LPF (Negative); Crystals Negative HPF (Negative); Epithelial Cells Rare HPF (Negative); Mucus Trace (Negative); RBC 0-2 HPF (0-2); WBC 0-2 HPF (0-5)
[2021-12-16 11:51] LABS: Iron 39 ug/dL (65-175); Total Iron Binding Capacity 194 ug/dL (250-450); Transferrin Sat 20 % (20-55)
[2021-12-16 11:57] LABS: ALT 21 U/L (16-63); AST 12 U/L (15-37); Albumin 2.7 g/dL (3.4-5.0); Alkaline Phosphatase 138 U/L (46-116); Anion Gap 9.3 mmol/L (3-11); BUN 37 mg/dL (7-18); Bilirubin, Total 0.3 mg/dL (0.2-1.0); CO2 20.7 mmol/L (21.0-32.0); CREATININE 3.4 mg/dL (0.70-1.30); Calcium 8.5 mg/dL (8.5-10.1); Chloride 111 mmol/L (98-107); Ferritin 197 ng/mL (26-388); Glucose 146 mg/dL (74-106); Potassium 5.2 mmol/L (3.5-5.1); Sodium 141 mmol/L (136-145); Total Protein 7.7 g/dL (6.4-8.2)
[2021-12-16 12:27] LABS: Magnesium 1.9 mg/dL (1.8-2.4); PHOSPHORUS 3.6 mg/dL (2.6-4.7); Uric Acid 7.8 mg/dL (3.5-7.2)
[2021-12-16 12:27] LABS: COMMENT (LAB VIEW ONLY) 86.94 mg/dL; PROTEIN 145.8 mg/dL; Prot/Crea Ur Ratio 1.67
[2021-12-16 12:31] LABS: Cholesterol 98 mg/dL (<200)
[2021-12-17 12:13] LABS: Tacrolimus 2.7 ng/mL (See Note)
== END 2021-12-16 04:28 | disposition home or self-care (01) ==
LOC: LBO 04:27
PROVIDERS: Internal Medicine Nephrology; PCP Family Medicine; Visit Provider Internal Medicine Hematology & Oncology
DX: N18.4 Chronic kidney disease, stage 4 (severe) (principal); Z94.0 Kidney transplant status; Z79.899 Other long term (current) drug therapy
CPT/HCPCS: 36415; 80053; 80197; 81003; 81015; 82465; 82565; 82728; 83540; 83550; 83735; 84100; 84156; 84550; 85025

== ENCOUNTER → 2021-12-25 00:55 | Outpatient (CLI) | payer MEDICARE, OTHER, SELFPAY ==
--- NOTE | 2021-12-25 07:50 | DI.CT_ITS ---
Exam(s) CT TEMPORAL BONE WO EXAM: CT TEMPORAL BONE WO CLINICAL HISTORY: LEFT EUSTACHIAN TUBE DYSFUNCTION H69.82, ASSESS FOR EVIDENCE ICA DEHISCENCE. TECHNIQUE: Imaging Protocol: Axial computed tomography images with coronal and sagittal reformatted images were created and reviewed. CONTRAST MATERIAL: Intravenous: Omnipaque 350 Contrast volume:structured data in ml Contrast route:I V - Oral: yes / no COMPARISON: No exams were available for comparison FINDINGS: Right Temporal Bone: There is either adherent debris or a small polyp along the anterior wall of the right external audito ry canal. The cochlea, vestibule, vestibular and cochlear aqueduct are normal. The facial nerve canal is well m aintained. The semicircular canals are unremarkable. There is no evidence of dehiscence. The internal auditory canal is within normal limits. The scutum and tegmen are within normal limits. Tympanic me mbrane appears intact. Right mastoid air cells are aerated. No fluid therein. The temporomandibular joint is unremarkable. Left Temporal Bone: The cochlea, vestibule, vestibular and cochlear aqueduct are normal. The facial nerve canal is well m aintained. The semicircular canals are unremarkable. There is no evidence of dehiscence. The interna l auditory canal is within normal limits. There is complete opacification of the left middle ear cavi ty without evidence of obvious destruction of the middle ear ossicles. There is partial opacificatio n of the aditus ad antrum. No erosion of the scutum and. There is some fluid evident in the depende nt mastoid air cells. The ipsilateral TM joint exhibits degenerative changes, including did subarticular cysts in the head of the mandible on this side. VISUALIZED PARANASAL SINUSES: There is mucoperiosteal thickening involving the sphenoid sinus. Thickening-sclerosis of the wall garcía ggests chronic sinusitis. Some mucosal thickening is also noted in the left frontal sinus as well as mucoperiosteal thickening in the maxillary sinuses. There are surgical defects in the medial mobley of both maxillary sinuses noted. Also resection of multiple ethmoidal air cells. Nasal septum is de viated towards the left side. Small left-sided nasal septal spur is noted. IMPRESSION: There is evidence of prior paranasal sinus surgery with large surgical defects in the medial mobley of both maxillary sinuses as well as evidence of ethmoidal air cells resection. There is opacification of the middle ear cavity on the left side, this surrounding the ossicles and e xtending up to the level of the aditus ad antrum. There does not appear to be obvious fascicular ero gaby/destruction of the middle ear ossicles. There is also fluid in the ipsilateral mastoid air cell s. Other findings as above. RADIATION DOSE DELIVERED: 1,004.37mGy.cm Total DLP DATA REPOSITORY: All CT scans at this facility are submitted to the National Radiology Data Registry (NRDR) Dose Index Registry (DIR) with the [employer] ([employer]). RADIATION OPTIMIZATION: All CT scans at this facility use at least one of these dose optimization te chniques: automated exposure control; mA and/or kV adjustment per patient size (includes targeted exa ms where dose is matched to clinical indication); or iterative reconstruction.
--- NOTE | 2021-12-26 20:22 | DI.VRAD_ITS ---
PROCEDURE INFORMATION: Exam: CT Temporal Bones Without Contrast. Exam date and time: 12/25/2021 7:50 AM Age: 66 years old Clinical indication: Other: Left eustachian tube dysfunction h69.82, assess for evidence ica dehiscence TECHNIQUE: Imaging protocol: Computed tomography images of the temporal bones without contrast. Radiation optimization: All CT scans at this facility use at least one of these dose optimization techniques: automated exposure control; mA and/or kV adjustment per patient size (includes targeted exams where dose is matched to clinical indication); or iterative reconstruction. COMPARISON: CT NECK WO 08/03/2019 3:15 AM FINDINGS: Right inner ear: Unremarkable. Right ossicles and middle ear: No significant opacification. The middle ear ossicles are intact. Right external auditory canal: There is some adherent debris or polyp involving the anterior wall of the right external auditory canal for example best seen on series 2, image 68. . Right facial nerve canal: Unremarkable. Right jugular foramen: No jugular dehiscence. Right carotid canal: No aberrant carotid canal. Right mastoid air cells: No significant right mastoid opacification Left inner ear: No significant abnormality. Left ossicles and middle ear: Opacification of the left middle ear cavity. No definite ossicular erosion or destruction visualized. Left external auditory canal: There is some probable mild cerumen noted within the left external canal.. Left facial nerve canal: Unremarkable. Left jugular foramen: Left of jugular bulb is dominant. It is more superiorly located than the right. Left carotid canal: No aberrant carotid canal. Left mastoid air cells: Opacification of left mastoid air cells particularly inferiorly where there are fluid levels. There is opacification in the fluid level in the left mastoid antrum.. Soft tissues: Vascular calcification is noted. The exam was not tailored to evaluate the sinuses but there is sinus mucoperiosteal thickening. There is some particularly involves the sphenoid sinus where there is some sclerosis of the mobley suggesting osteitis from chronic sinusitis. Intracranial vascular calcification is noted but there is no hyperdense intravascular thrombus identified. IMPRESSION: Findings consistent with left otomastoiditis. There is opacification of the left middle ear cavity but no definite ossicular erosion or destruction. Sinus disease and findings suggestive of chronic sinusitis particularly involving the sphenoid sinus. Dictated and Authenticated by: Amarilys Sheffield MD. Ordering:BEBETO Galo MD
== END ==
PROVIDERS: PCP Family Medicine; Visit Provider Otolaryngology
DX: H69.82 Other specified disorders of Eustachian tube, left ear (principal); Z98.890 Other specified postprocedural states; J32.3 Chronic sphenoidal sinusitis; J34.2 Deviated nasal septum; H75.82 Other specified disorders of left middle ear and mastoid in diseases classified elsewhere
CPT/HCPCS: 70480

== ENCOUNTER 2022-01-11 02:27 | Outpatient (CLI) | payer MEDICARE, OTHER, SELFPAY ==
[2022-01-11 15:30] LABS: Source Nasal/Nares
[2022-01-12 00:09] LABS: COVID-19 PCR Negative (Negative)
== END 2022-01-11 02:28 | disposition home or self-care (01) ==
LOC: LBO 02:27
PROVIDERS: PCP Family Medicine; Visit Provider Speech-Language Pathologist
DX: Z20.822 Contact with and (suspected) exposure to COVID-19 (principal); Z01.818 Encounter for other preprocedural examination
CPT/HCPCS: 87635; U0005

== ENCOUNTER → 2022-01-12 00:27 | Outpatient (CLI) | payer MEDICARE, OTHER, SELFPAY ==
--- NOTE | 2022-01-12 | DI.RAD_ITS ---
Exam(s) RF MODIFIED SPEECH BA SWALLOW TECHNIQUE: Modified barium swallow was performed in conjunction with speech pathology. CONTRAST MATERIAL: Multiple consistencies oral barium contrast were administered. COMPARISON: No exams were available for comparison FINDINGS: Note that this is not a dedicated esophagram, distal esophagus not evaluated. There is no evidence of aspiration or penetration with any consistency. Barium tablet stuck at a foc al area of narrowing in the upper esophagus.. Speech pathology report to follow. . . . IMPRESSION: No evidence of aspiration or penetration. Focal area of narrowing upper esophagus. Barium swallow o r endoscopy recommended for further evaluation. Fluoro time 2 minutes 9 seconds RADIATION DOSE DELIVERED: carlyle Luz=16.1 mGy
--- NOTE | 2022-01-12 10:30 | ST.MBS_ITS ---
Date of Service Date of service: 01/12/22 Time of Service: 11:29 Modified Barium Swallow Study Findings: Videofluoroscopic Swallowing Evaluation / Modified Barium Swallow Study (VFSE/MBSS) Speech Language Pathology Report ? Patient referred by Violetta Sanford for VFSE/MBSS given multiple ER visits due to esophageal foreign body. SUBJECTIVE: Patient reports minimal interim updates since initial swallow ev aluation dated 01/01/2022. He does report trialing medication administration with tsp puree, but does not feel this has helped with his symptoms. OBJECTIVE: Videofluoroscopic Swallow Evaluation (VFSE/MBSS) was conducted in the lateral and anterior/posterior projection by Speech-Language Pathologist, in collaboration with Radiologist, to evaluate oropharyngeal swallow function. Anatomic view under fluoroscopy: WFL ? PO barium contrast trials: Oral barium water soluble contrast was administered as follows: IDDSI Level 0 Varibar thin liquid (40% w/v) IDDSI Level 2 Varibar nectar thick/mildly thick liquid (40% w/v) IDDSI Level 3 Varibar thin honey/liquidised/moderately-thick (40% w/v) IDDSI Level 4 Varibar pudding/pureed/extremely thick (40% w/v) IDDSI Level 7 Regular Solid: 1/2 rohit cracker coated in 3 mL Varibar pudding; 13 mm barium tablet ? PHYSIOLOGIC FINDINGS MBSImP Component Scores: COMPONENT Scale SCORE 1 Lip closure (0-4) 0 Resulted in no labial escape 2 Hold Position (0-3) 0 Maintained a cohesive bolus between tongue to palatal seal 3 Bolus Preparation (0-4) 1 Resulted in slow prolonged chewing/mashing with complete re-collection 4 Bolus Transport (0-4) 1 Demonstrated delayed initiation of tongue motion 5 Oral Residue (0-4) 2 Was a collection on oral structures 6 Swallow Initiation (0-4) 3 Occurred when the bolus head was in the pyriform sinuses 7 Soft Palate Elevation (0-4) 0 Resulted in no bolus between soft palate and t he pharyngeal wall 8 Laryngeal Elevation (0-3) 1 Was decreased with partial superior movement of thyroid cartilage/partial approximation of arytenoids to epiglottic petiole 9 Anterior Hyoid Motion (0-2) 1 Demonstrated partial anterior movement 10 Epiglottic Movement (0-2) 0 Resulted in complete inversion 11 Laryngeal Closure (0-2) 1 Was incomplete with narrow a column of air/contra st in laryngeal vestibule 12 Pharyngeal Stripping Wave (0-2) 1 Was present, but diminished 13 Pharyngeal Contraction (0-3) 0 Was complete 14 PES Opening (0-3) 1 Demonstrated partial distension/partial duration, with partial obstruction of flow 15 Tongue Base Retraction (0-4) 2 Allowed a narrow column of contrast or air between the retracted tongue base and the posterior pharyngeal wall 16 Pharyngeal Residue (0-4) 2 Was a collection of residue within or on pharyngeal structures 17 Esophageal Clearance (0-4) 1 Resulted in esophageal retention Overall 8-Point Penetration-Aspiration Scale (PAS) (Huy, et al, 1996) MBSImP Component Scores: COMPONENT Scale SCORE 1 Lip closure (0-4) 0 Resulted in no labial escape 2 Hold Position (0-3) 0I Maintained a cohesive bolus between tongue to palatal seal 3 Bolus Preparation (0-4) 1 Resulted in slow prolonged chewing/mashing with complete re-collection 4 Bolus Transport (0-4) 1 Demonstrated delayed initiation of tongue motion 5 Oral Residue (0-4) 2 Was a collection on oral structures 6 Swallow Initiation (0-4) 3 Occurred when the bolus head was in the pyriform sinuses 7 Soft Palate Elevation (0-4) 0 Resulted in no bolus between soft palate and t he pharyngeal wall 8 Laryngeal Elevation (0-3) 1 Was decreased with partial superior movement of thyroid cartilage/partial approximation of arytenoids to epiglottic petiole 9 Anterior Hyoid Motion (0-2) 1 Demonstrated partial anterior movement 10 Epiglottic Movement (0-2) 0 Resulted in complete inversion 11 Laryngeal Closure (0-2) 1 Was incomplete with narrow a column of air/contra st in laryngeal vestibule 12 Pharyngeal Stripping Wave (0-2) 1 Was present, but diminished 13 Pharyngeal Contraction (0-3) 0 Was complete 14 PES Opening (0-3) 1 Demonstrated partial distension/partial duration, with partial obstruction of flow 15 Tongue Base Retraction (0-4) 2 Allowed a narrow column of contrast or air between the retracted tongue base and the posterior pharyngeal wall 16 Pharyngeal Residue (0-4) 2 Was a collection of residue within or on phar yngeal structures 17 Esophageal Clearance (0-4) 1 Resulted in esophageal retention Results: COMPONENT Scale SCORE 1 Oral Score (0-18) 7 2 Pharyngeal Score (0-29) 9 3 Esophageal Score (0-4) 1 Penetration-Aspiration Scale: COMPONENT Scale SCORE 1 Thin liquid (1-8) 4 Contrast entered the airway, contacted the vocal folds, and was ejected from the airway. 2 [place] thick (1-8) 1 Contrast did not enter the airway 3 Honey thick (1-8) NA 4 Pudding thick (1-8) 1 Contrast did not enter the airway 5 Cookie (1-8) 1 Contrast did not enter the airway Clinical Indicator(s) of Prandial/Postprandial Aspiration: n/a ? Trialed Compensatory Swallow Strategies & Outcome: Postures: n/a Maneuvers: 3-second Preparatory Set (-) Volitional Throat Clear (+) Secondary saliva swallow x1- (+) Bolus Modifications Delivery/Alternating Consistencies - Wash with (+/-) Delivery/Via Straw (+) Reduced Volume (+/-) Reduced Rate of Intake (+/-) Increased Viscosity (+/-) ? Dysphagia Outcome and Severity Scale (OCTAVIO) LEVEL 4 - Full PO: modified diet and/or independence - Mild-moderate dysphagia; Intermittent supervision/cueing, 1 or 2 consistencies restricted IMPRESSIONS: Mild oral-pharyngeal, and moderate-esophageal dysphagia primarily characterized by significant proximal esophageal stasis of all consistencies, as well as delayed swallow initiation and reduced pharyngeal motility resulting in trace laryngeal penetration prior to/during initial swallow onset and pharyngeal residue primarily at the level of valleculae for liquid consistencies only. Swallow safety appears largely preserved, swallow efficiency is impaired. Patient appears to be at low risk for potential aspiration PNA, pulmonary compromise and low-moderate risk for malnutrition/dehydration. Diet modification is indicated indicated to reduce persistent esophageal retention. Swallow prognosis is good-fair given age, insight, motivation and pending GI workup for esophageal component. At this time further oral-pharyngeal swallow rehabilitation is not necessary, results, education, and risk-management strategies including oral care, reflux precautions, diet modification, and swallow strategies were provided and patient/ verbalized understanding of these. If upon further GI workup/treatment, patient remains with oral-pharyngeal concerns, please re-refer PRN. Patient is also pending appointment for new dentures, suspect this will improve mastication and decrease frequency of persistent stasis of solids resulting in need for surgical intervention. ? PLAN/RECOMMENDATIONS: Diet recommendation: IDDSI Level 5-Minced & Moist Solids 0-Thin Liquids via straw, small sips Please see further details at www.iddsi.org Diet texture modification is per patient's preference; please adjust diet textures at patient's discretion & collaboration with care team. Medication delivery: Crushed or cut, as able (only alter medications per MD/Pharmacy instructions). Trial solid chaser to encourage esopahgeal clearance of pills that cannot be crushed. Risk Management: Behavioral reflux precautions, including upright position during + 90 mins after meals. Small bites, approx [id number] Small sips, approx 10 mL Alternate solids/liquids as able Multiple swallows per bolus (1) to encourage clearance of stasis/residue Control risk factors for aspiration pneumonia via (a) thorough oral hygiene & (b) maintaining physical mobility as tolerated Specialist referrals: GI Ancillary tests: Consider Upper GI series, Barium Esophagram and/or High Resolution Esophageal Manometry Therapy: None unless further need identified following GI workup. Follow-up exam: N/A ? Thank you for allowing me to take part in this patient's care. Please feel free to contact me with any questions/concerns. ? Brie Blanco M.S., CCC-EVENTS AND PROMOTIONS ASSISTANT Speech Language Pathologist [phone] Coding CPT Codes MOTION FLUOROSCOPY/SWALLOW - [id number] ([id number])
== END ==
PROVIDERS: PCP Family Medicine; Visit Provider Family Medicine
DX: R13.12 Dysphagia, oropharyngeal phase (principal); R13.14 Dysphagia, pharyngoesophageal phase
CPT/HCPCS: 92611; 74221

== ENCOUNTER 2022-01-12 13:05 | Outpatient (CLI) | payer MEDICARE, OTHER, SELFPAY ==
[2022-01-12 11:47] LABS: Abs Immature Grans 0.02 10^3/uL (0.0-0.06); Absolute Basophil Count 0.07 10^3/uL (0.0-0.2); Absolute Eosinophil Count 0.36 10^3/uL (0.0-0.7); Absolute Lymphocyte Count 1.95 10^3/uL (1.2-3.4); Absolute Monocyte Count 0.69 10^3/uL (0.1-0.8); Absolute Neutrophil Count 3.73 10^3/uL (1.2-6.7); Eosinophils % 5.3; HCT 29.2 % (40.0-50.0); HGB 8.8 g/dL (13.5-17.5); Immature Grans % 0.3; Lymphocytes % 28.6; MCH 28.7 pg (27.0-33.0); MCHC 30.1 % (32.0-36.0); MCV 95 fL (80-95); MPV 8.3 fL (8.0-11.0); Monocytes % 10.1; Neutrophils % 54.7; Platelet Count 198 10^3/uL (130-400); RBC 3.07 10^6/uL (4.36-5.78); RDW 15.5 % (11.8-14.1); RDW-SD 53.2 fL; WBC 6.82 10^3/uL (4.4-10.8)
[2022-01-12 12:16] LABS: ALT 15 U/L (16-63); AST 14 U/L (15-37); Albumin 2.7 g/dL (3.4-5.0); Alkaline Phosphatase 128 U/L (46-116); Anion Gap 8.3 mmol/L (3-11); BUN 43 mg/dL (7-18); Bilirubin, Total 0.2 mg/dL (0.2-1.0); CO2 21.7 mmol/L (21.0-32.0); CREATININE 3.2 mg/dL (0.70-1.30); Calcium 8.7 mg/dL (8.5-10.1); Chloride 107 mmol/L (98-107); Estimated GFR 19.41 (mL/min/1.73m2); Ferritin 187 ng/mL (26-388); Glucose 133 mg/dL (74-106); Potassium 5.1 mmol/L (3.5-5.1); Sodium 137 mmol/L (136-145); Total Protein 7.6 g/dL (6.4-8.2)
[2022-01-12 12:20] LABS: Iron 28 ug/dL (65-175); Total Iron Binding Capacity 183 ug/dL (250-450); Transferrin Sat 15 % (20-55)
[2022-01-12 13:04] LABS: Cholesterol 110 mg/dL (<200)
[2022-01-12 13:10] LABS: Magnesium 1.9 mg/dL (1.8-2.4); PHOSPHORUS 3.2 mg/dL (2.6-4.7)
[2023-01-14 09:19] LABS: Tacrolimus 2.3 ng/mL (See Note)
== END 2022-01-12 13:06 | disposition home or self-care (01) ==
LOC: LBO 13:07
PROVIDERS: PCP Family Medicine; Visit Provider Internal Medicine Hematology & Oncology
DX: Z97.0 Presence of artificial eye (principal); Z79.899 Other long term (current) drug therapy; N18.4 Chronic kidney disease, stage 4 (severe)
CPT/HCPCS: 36415; 80053; 92611; 74221; 80197; 81003; 82465; 82565; 82728; 83540; 83550; 83735; 84100; 84156; 84550; 85025

== ENCOUNTER 2022-01-28 04:13 | Outpatient (CLI) | payer MEDICARE, OTHER, SELFPAY ==
[2022-01-28 11:30] LABS: Abs Immature Grans 0.01 10^3/uL (0.0-0.06); Absolute Basophil Count 0.05 10^3/uL (0.0-0.2); Absolute Eosinophil Count 0.26 10^3/uL (0.0-0.7); Absolute Lymphocyte Count 1.84 10^3/uL (1.2-3.4); Absolute Monocyte Count 0.57 10^3/uL (0.1-0.8); Absolute Neutrophil Count 3.91 10^3/uL (1.2-6.7); Basophils % 0.8; Eosinophils % 3.9; HCT 29.2 % (40.0-50.0); HGB 8.9 g/dL (13.5-17.5); Immature Grans % 0.2; Lymphocytes % 27.7; MCH 28.8 pg (27.0-33.0); MCHC 30.5 % (32.0-36.0); MCV 95 fL (80-95); MPV 8.3 fL (8.0-11.0); Monocytes % 8.6; Neutrophils % 58.8; Platelet Count 167 10^3/uL (130-400); RBC 3.09 10^6/uL (4.36-5.78); RDW 15.7 % (11.8-14.1); RDW-SD 53.3 fL; WBC 6.64 10^3/uL (4.4-10.8)
[2022-01-28 11:32] LABS: Bilirubin Negative (Negative); Blood Negative (Negative); Clarity Clear (Clear); Glucose Negative (Negative); Ketones Negative (Negative); Leukocyte Esterase Negative (Negative); Nitrite Negative (Negative); Urobilinogen 0.2 EU/dL (Up TO 0.2)
[2022-01-28 11:40] LABS: Bacteria Rare HPF (Negative); C & S Indicated? No; Casts Negative LPF (Negative); Crystals Negative HPF (Negative); Epithelial Cells Rare HPF (Negative); Mucus Trace (Negative); Other Cells Negative (Negative); RBC Negative HPF (0-2); WBC 0-2 HPF (0-5)
[2022-01-28 11:42] LABS: Hemoglobin A1C 6.1 % (<5.7)
[2022-01-28 11:47] LABS: COMMENT (LAB VIEW ONLY) 68.96 mg/dL; PROTEIN 211.6 mg/dL; Prot/Crea Ur Ratio 3.06
[2022-01-28 11:53] LABS: ALT 21 U/L (16-63); AST 13 U/L (15-37); Albumin 2.7 g/dL (3.4-5.0); Alkaline Phosphatase 115 U/L (46-116); Anion Gap 8.5 mmol/L (3-11); BUN 35 mg/dL (7-18); Bilirubin, Total 0.3 mg/dL (0.2-1.0); CO2 22.5 mmol/L (21.0-32.0); CREATININE 2.7 mg/dL (0.70-1.30); Chloride 108 mmol/L (98-107); Estimated GFR 23.62 (mL/min/1.73m2); FREE T4 0.88 ng/dL (0.76-1.46); Glucose 176 mg/dL (74-106); Magnesium 1.6 mg/dL (1.8-2.4); PHOSPHORUS 3.7 mg/dL (2.6-4.7); Potassium 4.6 mmol/L (3.5-5.1); Sodium 139 mmol/L (136-145); Total Protein 7.2 g/dL (6.4-8.2); Uric Acid 7.3 mg/dL (3.5-7.2)
[2022-01-28 11:56] LABS: Iron 27 ug/dL (65-175); Total Iron Binding Capacity 163 ug/dL (250-450); Transferrin Sat 17 % (20-55)
[2022-01-28 12:15] LABS: Cholesterol 100 mg/dL (<200)
[2022-01-28 12:16] LABS: Ferritin 135 ng/mL (26-388)
[2022-01-29 13:39] LABS: Tacrolimus 3.1 ng/mL (See Note)
== END 2022-01-28 04:14 | disposition home or self-care (01) ==
LOC: LBO 04:14
PROVIDERS: PCP Family Medicine; Visit Provider Internal Medicine Hematology & Oncology
DX: N18.4 Chronic kidney disease, stage 4 (severe) (principal); Z94.0 Kidney transplant status; Z79.899 Other long term (current) drug therapy; E11.65 Type 2 diabetes mellitus with hyperglycemia; Z79.4 Long term (current) use of insulin
CPT/HCPCS: 36415; 80053; 80197; 81003; 81015; 82465; 82565; 82728; 83036; 83540; 83550; 83735; 84100; 84156; 84439; 84443; 84550; 85025

== ENCOUNTER 2022-02-15 12:59 | Day surgery (SDC) | payer MEDICARE, OTHER, SELFPAY ==
[2022-02-15] VITALS (13 sets, daily range): BP systolic 140–205; BP diastolic 60–83; PULSE 63–83; RESP 14–25; TEMP 36–36.7; O2SAT 94–97; BMI 32.3
[2022-02-15] MEDS: Glucagon 1 MG VIAL 3 MG IVP (13:45)
[2022-02-15] MEDS: Simethicone/Sod Bicarb/Cit Ac, 4 gram PACKET 1 PACKET PO (13:46)
--- NOTE | 2022-02-15 14:04 | ED.GENADUL_ITS ---
Discharge Plan Disposition Patient Disposition: STILL A PATIENT Condition: Stable Discharge Details Chief Complaint: ThroatFB Clinical Impression: Food impaction of esophagus Primary Care Provider: Violetta Sanford ED Provider: Cheikh Camp Home Meds and New Rx's Prescriptions: No Action folic acid 1 mg tablet 1 mg PO DAILY mycophenolate mofetil [CellCept] 250 mg capsule 500 mg PO BID calcitriol 0.25 mcg capsule 0.25 mcg PO DAILY mupirocin 2 % ointment 1 applic topical TID Qty: 15 0RF aspirin [[place] Low Dose Aspirin] 81 MG tablet,delayed release (DR/EC) 81 mg PO DAILY omeprazole [Prilosec] 40 MG capsule,delayed release(DR/EC) 40 mg PO DAILY montelukast 10 MG tablet 10 mg PO DAILY multivitamin [Daily Multi-Vitamin] 1 EACH tablet 1 ea PO DAILY hydralazine 100 mg tablet 100 mg PO TID metoprolol succinate 50 mg tablet extended release 24 hr 50 mg PO BID fluticasone propionate 50 mcg/actuation spray,suspension 1 spray intranasal DAILY Rx Instructions: administer into each nostril vitamin B complex [B Complex-Vitamin B12] Tablet 1 tab PO BID tacrolimus [Prograf] 1 mg capsule 1 mg PO Q12H cholecalciferol (vitamin D3) [Vitamin D3] 2,000 UNIT tablet 2,000 unit PO DAILY fluticasone propionate 16 GM spray,suspension 2 spry NS DAILY PRN albuterol sulfate [Ventolin HFA] 90 mcg/actuation Hfa Aerosol Inhaler 90 mcg Inhalation 4-6XD mycophenolate mofetil [CellCept] 250 mg Capsule 500 mg PO BID ipratropium-albuterol 0.5 mg-3 mg(2.5 mg base)/3 mL Solution For Nebulization 3 ml UPD Q6H Qty: 0 0RF tacrolimus 0.5 mg Capsule 1 mg PO DAILY Qty: 0 0RF Rx Instructions: takes BID insulin aspart U-100 [Novolog Flexpen U-100 Insulin] 100 unit/mL Insulin Pen 0 units subcut 0800,1200,1700 Qty: 0 0RF Rx Instructions: sliding scale atorvastatin [Lipitor] 20 MG tablet 1 tab PO DAILY primidone 50 mg Tablet 50 mg PO TID Rx Instructions: 08/16/20, /2 tab bid Victoza 2-Nigel 0.6 mg/0.1 mL (18 mg/3 mL) Pen Injector 1.2 mg SUBCUT QDAY Levemir FlexTouch U-100 Insuln 100 unit/mL (3 mL) insulin pen 55 units subcut BID Rx Instructions: 50 units and 45 untis at night amlodipine 5 mg Tablet 5 mg PO DAILY Qty: 30 2RF Medical Decision Making 66-year-old gentleman with history of esophageal stricture, multiple impactions in the past, presents with food impaction after eating spaghetti and repair of this afternoon. He does occasionally dry heaves. Otherwise has no acute concerns or complaints. Plan to obtain IV access, give IV glucagon, carbonated soda, and EZ granules Patient made multiple attempts to drink and was unsuccessful. I am concerned that he will need surgical intervention. It should be noted that the patient was initially hypertensive upon arrival however he was actively dry heaving, at rest blood pressure is 160/70. Case discussed with Dr. Lux who is agreeable to bring to the OR but will not be available until at least 4:30 PM. I made both patient and family aware of this plan and they are agreeable to awaiting OR availability This documentation was generated using [employer] system, please disregard any oddities of phrase or misspellings. Medical Records Medical records reviewed: Yes I reviewed the patient's medical records. Lab Data Lab results reviewed: Yes I reviewed the patient's lab results. Labs: Laboratory Tests Range/Units 02/15/22 14:56 COVID-19 Source Nasal/Nares HPI General Mode of arrival: ambulatory . Date/Time Provider Initiated Documentation: 02/15/22 13:15 . Limitations to Documentation: no limitations . Information obtained by: patient and family . HPI Narrative: This is a 66-year-old gentleman, past medical history that includes hypertension, CKD, COPD, esophageal food impaction, GERD, bilateral lower extremity amputation, CAD, anxiety, depression, dysphagia, CHF, presenting to the ER for esophageal food impaction status post eating spaghetti and meatballs for lunch. Patient reports that overall sensation is quite uncomfortable, he is not able to tolerate any additional oral intake and although he does not spit up the additional fluid. He states this has happened before, sometimes it passes on its own, sometimes he needs to go to the OR. He denies any headache, chest pain, shortness of breath, difficulty speaking or breathing, abdominal pain. Related Data Home Medications Medication Instructions Recorded Confirmed aspirin 81 mg tablet,delayed 81 mg PO DAILY 10/31/12 02/15/22 release ([place] Low Dose Aspirin) montelukast 10 mg tablet 10 mg PO DAILY 10/31/12 02/15/22 omeprazole 40 mg capsule,delayed 40 mg PO DAILY 10/31/12 02/15/22 release (Prilosec) multivitamin (Daily Multi-Vitamin 1 ea PO DAILY 05/10/13 02/15/22 tablet) cholecalciferol (vitamin D3) 50 2,000 unit PO DAILY 01/16/16 02/15/22 mcg (2,000 unit) tablet (Vitamin D3) fluticasone propionate 50 2 spry NS DAILY PRN 01/16/16 02/15/22 mcg/actuation nasal spray,suspension atorvastatin 20 mg tablet (Lipitor) 1 tab PO DAILY 02/01/17 02/15/22 albuterol sulfate 90 mcg/actuation 90 mcg inhalation 4-6XD 05/04/18 02/15/22 aerosol inhaler (Ventolin HFA) folic acid 1 mg tablet 1 mg PO DAILY 06/12/18 02/15/22 mycophenolate mofetil 250 mg 500 mg PO BID 11/12/18 02/15/22 capsule (CellCept) insulin aspart U-100 100 unit/mL 0 units (0 mL) subcut 11/15/18 02/15/22 (3 mL) subcutaneous pen (Novolog 0800,1200,1700 #0 mL Flexpen U-100 Insulin aspart) ipratropium 0.5 mg-albuterol 3 mg 3 ml UPD Q6H #0 mL 11/15/18 02/15/22 (2.5 mg base)/3 mL nebulization soln tacrolimus 0.5 mg capsule, 1 mg PO DAILY #0 caps 11/15/18 02/15/22 immediate-release insulin detemir U-100 100 unit/mL 55 units subcut BID 08/03/19 02/15/22 (3 mL) subcutaneous pen (Levemir FlexTouch U-100 Insulin) liraglutide 0.6 mg/0.1 mL (18 mg/3 1.2 mg subcut QDAY 08/03/19 02/15/22 mL) subcutaneous pen injector (Victoza 2-Nigel) primidone 50 mg tablet 50 mg PO TID 08/03/19 02/15/22 amlodipine 5 mg tablet 5 mg PO DAILY #30 tabs 08/06/19 02/15/22 fluticasone propionate 50 1 spray intranasal DAILY 09/04/20 02/15/22 mcg/actuation nasal spray,suspension hydralazine 100 mg tablet 100 mg PO TID 09/04/20 02/15/22 metoprolol succinate 50 mg 50 mg PO BID 09/04/20 02/15/22 tablet,extended release 24 hr tacrolimus 1 mg capsule, 1 mg PO Q12H 09/04/20 02/15/22 immediate-release (Prograf) vitamin B complex (B 1 tab PO BID 09/04/20 02/15/22 Complex-Vitamin B12 tablet) calcitriol 0.25 mcg capsule 0.25 mcg PO DAILY 04/14/21 02/15/22 mycophenolate mofetil 250 mg 500 mg PO BID 04/14/21 02/15/22 capsule (CellCept) mupirocin 2 % topical ointment 1 applic topical TID #15 grams 04/15/21 02/15/22 Previous Rx's Medication Instructions Recorded insulin aspart U-100 100 unit/mL 0 units (0 mL) subcut 11/15/18 (3 mL) subcutaneous pen (Novolog 0800,1200,1700 #0 mL Flexpen U-100 Insulin aspart) ipratropium 0.5 mg-albuterol 3 mg 3 ml UPD Q6H #0 mL 11/15/18 (2.5 mg base)/3 mL nebulization soln tacrolimus 0.5 mg capsule, 1 mg PO DAILY #0 caps 11/15/18 immediate-release amlodipine 5 mg tablet 5 mg PO DAILY #30 tabs 08/06/19 mupirocin 2 % topical ointment 1 applic topical TID #15 grams 04/15/21 Allergies Allergy/AdvReac Type Severity Reaction Status Date / Time levofloxacin Allergy Mild Unknown Verified 02/15/22 13:09 sulfamethoxazole Allergy Mild Unknown Verified 02/15/22 13:09 [From Bactrim] trimethoprim [From Bactrim] Allergy Mild Unknown Verified 02/15/22 13:09 doxycycline Allergy Unknown Verified 02/15/22 13:09 clindamycin Allergy Skin Rash Verified 02/15/22 13:09 ibuprofen Allergy Verified 02/15/22 13:09 Penicillins Allergy SWELLING Verified 02/15/22 13:09 tree nut Allergy Verified 02/15/22 13:09 lisinopril AdvReac KIDNEY Verified 02/15/22 13:09 SHUT DOWN yaneth inhibitors Allergy Mild Skin Rash Uncoded 02/15/22 13:09 CATS & BIRDS AdvReac Intermediate WHEEZING Uncoded 02/15/22 13:09 General Stated Complaint: ThroatFB RADHA: 3 Review of Systems Constitutional Constitutional: Denies fever(s) ENT Ears, Nose, Mouth, and Throat: Denies neck pain Cardiovascular Cardiovascular: Denies chest pain and Denies dyspnea Respiratory Respiratory: Denies cough and Denies dyspnea Gastrointestinal Gastrointestinal: Denies abdominal pain, Reports nausea and Reports vomiting Musculoskeletal Musculoskeletal: Denies neck pain Integumentary/Breasts Skin/Breast: Denies rash PFSH All Active Problems Esophageal foreign body (Acute) Food impaction of esophagus (Acute) Macrocytic anemia (Acute) Gastroparesis diabeticorum (Acute) Kidney transplant recipient (Acute) Chronic kidney disease (Chronic) Hypertension (Chronic) Hyperlipidemia (Chronic) CAD (coronary artery disease) (Chronic) GERD (gastroesophageal reflux disease) (Chronic) Asthma (Chronic) Chronic anxiety (Chronic) Chronic depression (Chronic) Status post bilateral below knee amputation (Chronic) Intention tremor (Chronic) Status post appendectomy (Acute) Physical medicine and rehabilitation procedures (Acute 06/27/13) Dysphagia (Acute) Infection of amputation stump of right lower extremity (Acute) CHF (congestive heart failure) (Acute) Diastolic CHF (Acute) CAP (community acquired pneumonia) (Acute) Acute kidney injury superimposed on chronic kidney disease (Acute) Uncontrolled insulin dependent diabetes mellitus (Acute) Ambulatory dysfunction (Acute) Discharge planning issues (Acute) DVT prophylaxis (Acute) Sepsis (Acute) MELISSA (obstructive sleep apnea) (Chronic) Left lower lobe pneumonia (Acute) Wenckebach second degree AV block (Acute) Fluid level behind tympanic membrane of left ear (Acute) Sensory hearing loss, bilateral (Acute) Tinnitus, bilateral (Acute) Osteoma of ear canal (Acute) Atrial fibrillation (Chronic) Kidney transplant recipient (Chronic) 2006 Medical History Adenomatous colon polyp Anxiety and depression Diabetes mellitus Erectile dysfunction GERD (gastroesophageal reflux disease) History of colon polyps HTN (hypertension) Hydrocele Hyperlipidemia Intention tremor Lumbar back pain Obesity MELISSA (obstructive sleep apnea) Personal history of allergy to other antibiotic agent Sciatica Stage 3 severe COPD by GOLD classification Tremor Tricuspid insufficiency Vitamin B 12 deficiency Surgical History Colonoscopy - MAC (02/01/17) EGD - MAC (04/02/16) History of below-knee amputation of both lower extremities 2010 History of colonoscopy (~10/2020) Hx of amputation below knee Kidney transplant recipient Family History Brother Personal history of malignant neoplasm Social History Smoking/Tobacco Use Status: Former Tobacco Use Quit Date: 07/25/90 Smoking risk assessment performed?: Yes Alcohol Intake: never Drug use: Never Substance use type: does not use Do you feel safe at home: Yes Do you feel safe in your relationship?: Yes Exam Const General: cooperative, no acute distress and other (Uncomfortable, occasional dry heaving) Orientation: alert and awake HENMT Head: normal to inspection, normocephalic and atraumatic Face and sinus: normal facial exam Mouth: moist mucous membranes Throat: posterior oropharynx normal Eyes Conjunctivae: conjunctivae normal Neck Neck: normal visual inspection, full ROM, trachea midline, supple and nontender Resp Effort & Inspection: normal respiratory effort and able to speak in complete sentences Auscultation: clear to auscultation bilaterally Cardio Rate: regular rate Rhythm: regular rhythm GI Inspection: obesity Palpation: soft, not firm, no guarding, no pulsatile masses and nontender Auscultation: normal bowel sounds Skin General skin exam: no rashes or lesions noted Neuro General: patient alert, patient awake, moves all extremities and no focal motor deficits Cognition: normal cognition Speech: speech normal Psych Appearance: grossly normal Mental Status: mental status grossly normal Course Vital Signs Vital signs: Vital Signs Temperature 36.7 C 02/15/22 13:07 Pulse 73 02/15/22 13:07 Blood Pressure 160/70 H 02/15/22 13:07 Pulse Oximetry 97 02/15/22 13:07 Temperature 36.7 C 02/15/22 13:07 Temperature Source Temporal Artery Scan 02/15/22 13:07 Pulse 83 02/15/22 14:01 Respiratory Rate 16 02/15/22 14:01 Respiratory Effort Non-Labored 02/15/22 13:33 Respiratory Pattern Irregular 02/15/22 13:33 Blood Pressure 205/83 H 02/15/22 14:01 Blood Pressure Position Sitting 02/15/22 13:07 Pulse Oximetry 95 02/15/22 14:01 Oxygen Delivery Method Room Air 02/15/22 14:01 Oxygen Flow Rate 0 02/15/22 14:01 Pain Level 0 02/15/22 13:07
[2022-02-15 15:01] LABS: Source Nasal/Nares
--- NOTE | 2022-02-15 15:06 | HPE_ITS ---
Date of service: 02/15/22 Assessment and Plan Assessment and plan (1) Esophageal foreign body: Status: Acute Assessment and plan: Informed consent is obtained for the procedural (explained in simple layman's terms that the pt. and/or family could understand) explaining risks vs benefits and alternatives to the procedure and consequences if we do not do the procedure and need/rational for the procedure. Risks include but are not limited to: bleeding, infection, perforation of esophagus, stomach, colon, small intestines, bronchus or trachea, or PTX. This would necessitate emergency surgery to repair the damage w/ possible ostomy; and other associated complications w/ the required surgery. Also complications of anesthesia including aspiration, WI/CVA/. High risk for WI/CVA from GETA (2) Food impaction of esophagus: Status: Acute Assessment and plan: pt has seen speech: MPRESSIONS: Mild oral-pharyngeal, and moderate-esophageal dysphagia primarily characterized by significant proximal esophageal stasis of all consistencies, as well as delayed swallow initiation and reduced pharyngeal motility resulting in trace laryngeal penetration prior to/during initial swallow onset and pharyngeal residue primarily at the level of valleculae for liquid consistencies only. Swallow safety appears largely preserved, swallow efficiency is impaired. Patient appears to be at low risk for potential aspiration PNA, pulmonary compromise and low-moderate risk for malnutrition/dehydration. Diet modification is indicated indicated to reduce persistent esophageal retention. Swallow prognosis is good-fair given age, insight, motivation and pending GI workup for esophageal component. At this time further oral-pharyngeal swallow rehabilitation is not necessary, results, education, and risk-management strategies including oral care, reflux precautions, diet modification, and swal low strategies were provided and patient/ verbalized understanding of these. If upon further GI workup/treatment, patient remains with oral-pharyngeal concerns, please re-refer PRN. Patient is also pending appointment for new dentures, suspect this will improve mastication and decrease frequency of persistent stasis of solids resulting in need for surgical intervention. ? PLAN/RECOMMENDATIONS: Diet recommendation: IDDSI Level 5-Minced & Moist Solids 0-Thin Liquids via straw, small sips Please see further details at [email or web address] Diet texture modification is per patient's preference; please adjust diet textures at patient's discretion & collaboration with care team. Medication delivery: Crushed or cut, as able (only alter medications per MD/Pharmacy instructions). Trial solid chaser to encourage esopahgeal clearance of pills that cannot be crushed. Risk Management: Behavioral reflux precautions, including upright position during + 90 mins after meals. Small bites, approx [id number] Small sips, approx 10 mL Alternate solids/liquids as able Multiple swallows per bolus (1) to encourage clearance of stasis/residue Control risk factors for aspiration pneumonia via (a) thorough oral hygiene & (b) maintaining physical mobility as tolerated Specialist referrals:?GI PT NEEDS TO GET DENTURES! (3) Macrocytic anemia: Status: Acute (4) Gastroparesis diabeticorum: Status: Acute (5) Kidney transplant recipient: Status: Acute (6) COPD (chronic obstructive pulmonary disease): Status: None (7) Hypertension: Status: Chronic Qualifiers: Hypertension type: essential hypertension Qualified Code(s): I10 - Essential (primary) hypertension (8) Hyperlipidemia: Status: Chronic (9) CAD (coronary artery disease): Status: Chronic (10) GERD (gastroesophageal reflux disease): Status: Chronic (11) Asthma: Status: Chronic (12) Chronic anxiety: Status: Chronic (13) GERD (gastroesophageal reflux disease): (14) Hyperlipidemia: (15) Obesity: (16) MELISSA (obstructive sleep apnea): (17) Status post bilateral below knee amputation: Status: Chronic (18) MELISSA (obstructive sleep apnea): Status: Chronic (19) Wenckebach second degree AV block: Status: Acute (20) Sensory hearing loss, bilateral: Status: Acute (21) Atrial fibrillation: Status: Chronic (22) Kidney transplant recipient: Status: Chronic History of Present Illness Narrative: PT presents to the ED w/ recurrent esophageal FB. He did not respond to glucagon or crystals. Pt will require EGD adn FB body removal, as well as GETA Review of Systems All systems reviewed & are unremarkable except as noted in HPI and below PFSH All Active Problems Esophageal foreign body (Acute) Food impaction of esophagus (Acute) Macrocytic anemia (Acute) Gastroparesis diabeticorum (Acute) Kidney transplant recipient (Acute) Chronic kidney disease (Chronic) Hypertension (Chronic) Hyperlipidemia (Chronic) CAD (coronary artery disease) (Chronic) GERD (gastroesophageal reflux disease) (Chronic) Asthma (Chronic) Chronic anxiety (Chronic) Chronic depression (Chronic) Status post bilateral below knee amputation (Chronic) Intention tremor (Chronic) Status post appendectomy (Acute) Physical medicine and rehabilitation procedures (Acute 06/27/13) Dysphagia (Acute) Infection of amputation stump of right lower extremity (Acute) CHF (congestive heart failure) (Acute) Diastolic CHF (Acute) CAP (community acquired pneumonia) (Acute) Acute kidney injury superimposed on chronic kidney disease (Acute) Uncontrolled insulin dependent diabetes mellitus (Acute) Ambulatory dysfunction (Acute) Sepsis (Acute) MELISSA (obstructive sleep apnea) (Chronic) Left lower lobe pneumonia (Acute) Wenckebach second degree AV block (Acute) Fluid level behind tympanic membrane of left ear (Acute) Sensory hearing loss, bilateral (Acute) Tinnitus, bilateral (Acute) Osteoma of ear canal (Acute) Atrial fibrillation (Chronic) Kidney transplant recipient (Chronic) 2005 Medical History Adenomatous colon polyp Anxiety and depression Diabetes mellitus Erectile dysfunction GERD (gastroesophageal reflux disease) History of colon polyps HTN (hypertension) Hydrocele Hyperlipidemia Intention tremor Lumbar back pain Obesity MELISSA (obstructive sleep apnea) Personal history of allergy to other antibiotic agent Sciatica Stage 3 severe COPD by GOLD classification Tremor Tricuspid insufficiency Vitamin B 12 deficiency Surgical History Colonoscopy - MAC (02/01/17) EGD - MAC (04/02/16) History of below-knee amputation of both lower extremities 2010 History of colonoscopy (~10/2020) Hx of amputation below knee Kidney transplant recipient Family History Brother Personal history of malignant neoplasm Social History Smoking/Tobacco Use Status: Former Tobacco Use Quit Date: 07/25/90 Smoking risk assessment performed?: Yes Alcohol Intake: never Drug use: Never Substance use type: does not use Do you feel safe at home: Yes Do you feel safe in your relationship?: Yes Meds Allergies and Home Medications Allergies Allergy/AdvReac Type Severity Reaction Status Date / Time levofloxacin Allergy Mild Unknown Verified 02/15/22 13:09 sulfamethoxazole Allergy Mild Unknown Verified 02/15/22 13:09 [From Bactrim] trimethoprim [From Bactrim] Allergy Mild Unknown Verified 02/15/22 13:09 doxycycline Allergy Unknown Verified 02/15/22 13:09 clindamycin Allergy Skin Rash Verified 02/15/22 13:09 ibuprofen Allergy Verified 02/15/22 13:09 Penicillins Allergy SWELLING Verified 02/15/22 13:09 tree nut Allergy Verified 02/15/22 13:09 lisinopril AdvReac KIDNEY Verified 02/15/22 13:09 SHUT DOWN yaneth inhibitors Allergy Mild Skin Rash Uncoded 02/15/22 13:09 CATS & BIRDS AdvReac Intermediate WHEEZING Uncoded 02/15/22 13:09 Home Medications Medication Instructions Recorded Confirmed Type aspirin 81 mg tablet,delayed 81 mg PO DAILY 10/31/12 02/15/22 History release ([place] Low Dose Aspirin) montelukast 10 mg tablet 10 mg PO DAILY 10/31/12 02/15/22 History omeprazole 40 mg capsule,delayed 40 mg PO DAILY 10/31/12 02/15/22 History release (Prilosec) multivitamin (Daily Multi-Vitamin 1 ea PO DAILY 05/10/13 02/15/22 History tablet) cholecalciferol (vitamin D3) 50 2,000 unit PO DAILY 01/16/16 02/15/22 History mcg (2,000 unit) tablet (Vitamin D3) fluticasone propionate 50 2 spry NS DAILY PRN 01/16/16 02/15/22 History mcg/actuation nasal spray,suspension atorvastatin 20 mg tablet (Lipitor) 1 tab PO DAILY 02/01/17 02/15/22 History albuterol sulfate 90 mcg/actuation 90 mcg inhalation 4-6XD 05/04/18 02/15/22 History aerosol inhaler (Ventolin HFA) folic acid 1 mg tablet 1 mg PO DAILY 06/12/18 02/15/22 History mycophenolate mofetil 250 mg 500 mg PO BID 11/12/18 02/15/22 History capsule (CellCept) insulin aspart U-100 100 unit/mL 0 units (0 mL) subcut 11/15/18 02/15/22 Rx (3 mL) subcutaneous pen (Novolog 0800,1200,1700 #0 mL Flexpen U-100 Insulin aspart) ipratropium 0.5 mg-albuterol 3 mg 3 ml UPD Q6H #0 mL 11/15/18 02/15/22 Rx (2.5 mg base)/3 mL nebulization soln tacrolimus 0.5 mg capsule, 1 mg PO DAILY #0 caps 11/15/18 02/15/22 Rx immediate-release insulin detemir U-100 100 unit/mL 55 units subcut BID 08/03/19 02/15/22 History (3 mL) subcutaneous pen (Levemir FlexTouch U-100 Insulin) liraglutide 0.6 mg/0.1 mL (18 mg/3 1.2 mg subcut QDAY 08/03/19 02/15/22 History mL) subcutaneous pen injector (Victoza 2-Nigel) primidone 50 mg tablet 50 mg PO TID 08/03/19 02/15/22 History amlodipine 5 mg tablet 5 mg PO DAILY #30 tabs 08/06/19 02/15/22 Rx fluticasone propionate 50 1 spray intranasal DAILY 09/04/20 02/15/22 History mcg/actuation nasal spray,suspension hydralazine 100 mg tablet 100 mg PO TID 09/04/20 02/15/22 History metoprolol succinate 50 mg 50 mg PO BID 09/04/20 02/15/22 History tablet,extended release 24 hr tacrolimus 1 mg capsule, 1 mg PO Q12H 09/04/20 02/15/22 History immediate-release (Prograf) vitamin B complex (B 1 tab PO BID 09/04/20 02/15/22 History Complex-Vitamin B12 tablet) calcitriol 0.25 mcg capsule 0.25 mcg PO DAILY 04/14/21 02/15/22 History mycophenolate mofetil 250 mg 500 mg PO BID 04/14/21 02/15/22 History capsule (CellCept) mupirocin 2 % topical ointment 1 applic topical TID #15 grams 04/15/21 02/15/22 Rx Exam Narrative Exam Narrative: PHYSICAL EXAM GENERAL APPEARANCE: Alert, healthy appearance, oriented, in no acute distress. HEAD, EYES, EARS, NECK, THROAT: Head is normocephalic, pupils equal, round, reactive to light and accommodation, ocular movement intact, sclera clear and no jaundice. ?Edentulous. No prior neck surgery. No jaw pain. No thrush NECK: Supple, Trachea midline. No JVD. LUNGS: normal respiration/nl chest excursion. ?Clear to auscultation B/l no R/R/W ?HEART: A fib EXTREMITY:b/l amputee ABDOMEN: non tender to palpation, no masses or distention, obese- internal organs and hernias are not palpable. Normal bowel sounds Results Labs Labs: Laboratory Results - last 24 hr 02/15/22 14:56 COVID-19 Source Nasal/Nares Last Vital Signs Temp 36.7 C 02/15/22 13:07 Pulse 66 02/15/22 14:36 Resp 14 02/15/22 14:36 BP 170/66 H 02/15/22 14:36 Pulse Ox 94 02/15/22 14:36
[2022-02-15 15:56] LABS: COVID-19 PCR Negative (Negative)
--- NOTE | 2022-02-15 16:06 | W.ANESPRE ---
General Info Date of Service Date Performed: 02/15/22 Height: 6 ft 4 in Weight: 120.656 kg Body Mass Index (BMI): 32.3 Surgical Procedure: Operation Date: 02/15/22 16:00 Proposed Procedure Side Surgeon p Gastroscopy/Removal Foreign Body Brie Lux DO Operation Date: 02/16/22 17:05 Proposed Procedure Side Surgeon p Gastroscopy/Removal Foreign Body Brie Lux DO Meds Allergies and Home Medications Allergies Allergy/AdvReac Type Severity Reaction Status Date / Time levofloxacin Allergy Mild Unknown Verified 02/15/22 13:09 sulfamethoxazole Allergy Mild Unknown Verified 02/15/22 13:09 [From Bactrim] trimethoprim [From Bactrim] Allergy Mild Unknown Verified 02/15/22 13:09 doxycycline Allergy Unknown Verified 02/15/22 13:09 clindamycin Allergy Skin Rash Verified 02/15/22 13:09 ibuprofen Allergy Verified 02/15/22 13:09 Penicillins Allergy SWELLING Verified 02/15/22 13:09 tree nut Allergy Verified 02/15/22 13:09 lisinopril AdvReac KIDNEY Verified 02/15/22 13:09 SHUT DOWN yaneth inhibitors Allergy Mild Skin Rash Uncoded 02/15/22 13:09 CATS & BIRDS AdvReac Intermediate WHEEZING Uncoded 02/15/22 13:09 Home Medication Medication Instructions Recorded aspirin 81 mg tablet,delayed 81 mg PO DAILY 10/31/12 release ([place] Low Dose Aspirin) montelukast 10 mg tablet 10 mg PO DAILY 10/31/12 omeprazole 40 mg capsule,delayed 40 mg PO DAILY 10/31/12 release (Prilosec) multivitamin (Daily Multi-Vitamin 1 ea PO DAILY 05/10/13 tablet) cholecalciferol (vitamin D3) 50 2,000 unit PO DAILY 01/16/16 mcg (2,000 unit) tablet (Vitamin D3) fluticasone propionate 50 2 spry NS DAILY PRN 01/16/16 mcg/actuation nasal spray,suspension atorvastatin 20 mg tablet (Lipitor) 1 tab PO DAILY 02/01/17 albuterol sulfate 90 mcg/actuation 90 mcg inhalation 4-6XD 05/04/18 aerosol inhaler (Ventolin HFA) folic acid 1 mg tablet 1 mg PO DAILY 06/12/18 mycophenolate mofetil 250 mg 500 mg PO BID 11/12/18 capsule (CellCept) insulin aspart U-100 100 unit/mL 0 units (0 mL) subcut 11/15/18 (3 mL) subcutaneous pen (Novolog 0800,1200,1700 #0 mL Flexpen U-100 Insulin aspart) ipratropium 0.5 mg-albuterol 3 mg 3 ml UPD Q6H #0 mL 11/15/18 (2.5 mg base)/3 mL nebulization soln tacrolimus 0.5 mg capsule, 1 mg PO DAILY #0 caps 11/15/18 immediate-release insulin detemir U-100 100 unit/mL 55 units subcut BID 08/03/19 (3 mL) subcutaneous pen (Levemir FlexTouch U-100 Insulin) liraglutide 0.6 mg/0.1 mL (18 mg/3 1.2 mg subcut QDAY 08/03/19 mL) subcutaneous pen injector (RIVA Grouptoza 2-Nigel) primidone 50 mg tablet 50 mg PO TID 08/03/19 amlodipine 5 mg tablet 5 mg PO DAILY #30 tabs 08/06/19 fluticasone propionate 50 1 spray intranasal DAILY 09/04/20 mcg/actuation nasal spray,suspension hydralazine 100 mg tablet 100 mg PO TID 09/04/20 metoprolol succinate 50 mg 50 mg PO BID 09/04/20 tablet,extended release 24 hr tacrolimus 1 mg capsule, 1 mg PO Q12H 09/04/20 immediate-release (Prograf) vitamin B complex (B 1 tab PO BID 09/04/20 Complex-Vitamin B12 tablet) calcitriol 0.25 mcg capsule 0.25 mcg PO DAILY 04/14/21 mycophenolate mofetil 250 mg 500 mg PO BID 04/14/21 capsule (CellCept) mupirocin 2 % topical ointment 1 applic topical TID #15 grams 04/15/21 Current Visit Medications: Current Medications Generic Name Dose Route Start Last Admin Trade Name Freq PRN Reason Stop Dose Admin IV Miscellaneous Supplies 1 each 02/15/22 13:30 Iv Access IV DIRECTED [facility] Active Problems Active Problems: Problem Status Onset Code Esophageal foreign body T18.108A Food impaction of esophagus T18.128A Macrocytic anemia D53.9 Gastroparesis diabeticorum E11.43, K31.84 Kidney transplant recipient Z94.0 Chronic kidney disease N18.9 Hypertension I10 Hyperlipidemia E78.5 CAD (coronary artery disease) I25.10 GERD (gastroesophageal reflux disease) K21.9 Asthma J45.909 Chronic anxiety F41.9 Chronic depression F32.9 Status post bilateral below knee amputation Z89.512, Z89.511 Intention tremor G25.2 Status post appendectomy Z90.49 Physical medicine and rehabilitation procedures 06/27/13 [id number] Dysphagia R13.10 Infection of amputation stump of right lower extremity T87.43 Hyperkalemia E87.5 CHF (congestive heart failure) I50.9 Diastolic CHF I50.30 CAP (community acquired pneumonia) J18.9 Acute kidney injury superimposed on chronic kidney disease N17.9, N18.9 Uncontrolled insulin dependent diabetes mellitus E11.65, Z79.4 Ambulatory dysfunction R26.2 Sepsis A41.9 MELISSA (obstructive sleep apnea) G47.33 Left lower lobe pneumonia J18.9 Wenckebach second degree AV block I44.1 Fluid level behind tympanic membrane of left ear H65.92 Sensory hearing loss, bilateral H90.3 Tinnitus, bilateral H93.13 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 Atrial fibrillation I48.91 Kidney transplant recipient Z94.0 Medical History Medical History Adenomatous colon polyp Anxiety and depression Diabetes mellitus Erectile dysfunction GERD (gastroesophageal reflux disease) History of colon polyps HTN (hypertension) Hydrocele Hyperlipidemia Intention tremor Lumbar back pain Obesity MELISSA (obstructive sleep apnea) Personal history of allergy to other antibiotic agent Sciatica Stage 3 severe COPD by GOLD classification Tremor Tricuspid insufficiency Vitamin B 12 deficiency Surgical History Surgical History Colonoscopy - MAC (02/01/17) EGD - MAC (04/02/16) History of below-knee amputation of both lower extremities 2010 History of colonoscopy (~10/2020) Hx of amputation below knee Kidney transplant recipient Tobacco Smoking/Tobacco Use Status: Former Tobacco Use Alcohol Alcohol Intake: never Substance Use Substance use: Never Substance use type: does not use Vital Signs and Lab Results Vital Signs Most Recent Vital Signs in EMR: Most Recent Vital Signs Temp Pulse Resp BP Pulse Ox 36.4 C L 68 14 174/71 H 96 02/15/22 15:14 02/15/22 15:14 02/15/22 15:14 02/15/22 15:14 02/15/22 15:14 Lab Results Blood Type / Crossmatch: No Data to Display Complete Blood Count: White Blood Count 6.64 10^3/uL (4.4-10.8) 01/28/22 11:15 Red Blood Count 3.09 10^6/uL (4.36-5.78) L 01/28/22 11:15 Hemoglobin 8.9 g/dL (13.5-17.5) L 01/28/22 11:15 Hematocrit 29.2 % (40.0-50.0) L 01/28/22 11:15 Platelet Count 167 10^3/uL (130-400) 01/28/22 11:15 Complete Metabolic Panel: Sodium Level 139 mmol/L (136-145) 01/28/22 11:15 Potassium Level 4.6 mmol/L (3.5-5.1) 01/28/22 11:15 Chloride Level 108 mmol/L (98-107) H 01/28/22 11:15 Carbon Dioxide Level 22.5 mmol/L (21.0-32.0) 01/28/22 11:15 Blood Urea Nitrogen 35 mg/dL (7-18) H 01/28/22 11:15 Creatinine 2.7 mg/dL (0.70-1.30) H 01/28/22 11:15 Estimated GFR/1.73 m2 23.62 (mL/min/1.73m2) 01/28/22 11:15 Magnesium Level 1.6 mg/dL (1.8-2.4) L 01/28/22 11:15 Calcium Level 9.0 mg/dL (8.5-10.1) 01/28/22 11:15 Albumin 2.7 g/dL (3.4-5.0) L 01/28/22 11:15 Glucose Level 176 mg/dL (74-106) H 01/28/22 11:15 Hemoglobin A1c 6.1 % (<5.7) H 01/28/22 11:15 Liver Function Panel: Alanine Aminotransferase (ALT/SGPT) 21 U/L (16-63) 01/28/22 11:15 Aspartate Amino Transf (AST/SGOT) 13 U/L (15-37) L 01/28/22 11:15 Coagulation Panel: No Data to Display Cardiac Panel: No Data to Display Arterial Blood Gas: No Data to Display Venous Blood Gas: No Data to Display Pancreas Panel: No Data to Display Thyroid Panel: Thyroid Stimulating Hormone (TSH) 2.20 uIU/mL (0.36-3.74) 01/28/22 11:15 Infectious Disease: Coronavirus (COVID-19)(PCR) Negative (Negative) 02/15/22 14:56 Coronavirus 2019 Source Nasal/Nares 02/15/22 14:56 Blood Cultures: No Data to Display Toxicology Panel: No Data to Display Imaging and Studies Imaging and Studies Study information below may be from another EMR and interpreted by another provider. Please see original notes in EMR for more complete details. EKG Summary: Conclusion Sinus bradycardia. Prolonged KS interval. Nonspecific IVCD Left ventricular hypertrophy Stress Test Summary: 1. Myocardial perfusion imaging: The left ventricle is mildly dilated. No myocardial perfusion defects noted. 2. The calculated left ventricular ejection fraction after stress: 33%. LV global systolic function is moderate to severely reduced. Diffuse left ventricular regional motion abnormalities. Recommendations: 1. Transthoracic echocardiography should be performed in order to evaluate LV function. 2. If abnormal LV function on echocardiogram, cardiology consult to discuss cardiac catheterization. Echocardiogram Summary: Impressions: Low-normal LVEF. Recent LVEF estimate on MPI was false-low, likely imaging artifact. Summary: 1. Left ventricle: The cavity size was normal. Wall thickness was increased in a pattern of mild LVH. Systolic function was at the lower limits of normal. The estimated ejection fraction was 50-55%. Wall motion was normal; there were no regional wall motion abnormalities. 2. Mitral valve: Moderate focal calcification of the posterior leaflet. 3. Right ventricle: The cavity size was normal. Wall thickness was normal. Systolic function was normal. 4. Tricuspid valve: There was mild-moderate regurgitation. Anesthesia Assessment and Plan Anesthesia History Personal History: No History of Anesthesia Complications Family History: No Family History of Anesthesia Complications Exercise Tolerance Exercise Tolerance: Metabolic Equivalents<4 Pertinent Negatives Pertinent Negatives: No Major Cardiovascular Symptoms or Complaints, No Major Pulmonary Symptoms or Complaints and No History of CVA/TIA Cardiac & Pulmonary Exam Cardiac Exam: Normal S1/S2 Heart Sounds Pulmonary Exam: Clear Bilateral Breath Sounds Implantable Cardiac Device Does patient have a Pacemaker or an ICD?: No Airway Exam Known Difficult Airway: No Mallampati Class: 2 Mouth Opening: Normal (> 3cm) Thyromental Distance: Greater than 3 cm Neck Range of Motion: Full ROM Neck Circumference: Normal Teeth Condition: Removable Dentures/Plates Upper and Removable Dentures/Plates Lower ASA Classification ASA Score: ASA 4 Emergency Case?: Yes NPO Status NPO Status: NPO Clear Liquids>2 hours and Full Stomach Anesthesia Plan Resuscitation Status: Full Code Anesthesia Technique: General Anesthesia Airway Planned: Endotracheal Tube Monitors Used: Standard Monitors
--- NOTE | 2022-02-15 16:20 | W.PM.DSUDISC ---
Discharge Plan Disposition Patient Disposition: HOME Condition: Good Discharge Details Attending Provider: Brie Lux Primary Care Provider: Violetta Sanford Home Meds and New Rx's Prescriptions: No Action folic acid 1 mg tablet 1 mg PO DAILY mycophenolate mofetil [CellCept] 250 mg capsule 500 mg PO BID calcitriol 0.25 mcg capsule 0.25 mcg PO DAILY mupirocin 2 % ointment 1 applic topical TID Qty: 15 0RF aspirin [[place] Low Dose Aspirin] 81 MG tablet,delayed release (DR/EC) 81 mg PO DAILY omeprazole [Prilosec] 40 MG capsule,delayed release(DR/EC) 40 mg PO DAILY montelukast 10 MG tablet 10 mg PO DAILY multivitamin [Daily Multi-Vitamin] 1 EACH tablet 1 ea PO DAILY hydralazine 100 mg tablet 100 mg PO TID metoprolol succinate 50 mg tablet extended release 24 hr 50 mg PO BID fluticasone propionate 50 mcg/actuation spray,suspension 1 spray intranasal DAILY Rx Instructions: administer into each nostril vitamin B complex [B Complex-Vitamin B12] Tablet 1 tab PO BID tacrolimus [Prograf] 1 mg capsule 1 mg PO Q12H cholecalciferol (vitamin D3) [Vitamin D3] 2,000 UNIT tablet 2,000 unit PO DAILY fluticasone propionate 16 GM spray,suspension 2 spry NS DAILY PRN albuterol sulfate [Ventolin HFA] 90 mcg/actuation Hfa Aerosol Inhaler 90 mcg Inhalation 4-6XD mycophenolate mofetil [CellCept] 250 mg Capsule 500 mg PO BID ipratropium-albuterol 0.5 mg-3 mg(2.5 mg base)/3 mL Solution For Nebulization 3 ml UPD Q6H Qty: 0 0RF tacrolimus 0.5 mg Capsule 1 mg PO DAILY Qty: 0 0RF Rx Instructions: takes BID insulin aspart U-100 [Novolog Flexpen U-100 Insulin] 100 unit/mL Insulin Pen 0 units subcut 0800,1200,1700 Qty: 0 0RF Rx Instructions: sliding scale atorvastatin [Lipitor] 20 MG tablet 1 tab PO DAILY primidone 50 mg Tablet 50 mg PO TID Rx Instructions: 08/16/20, /2 tab bid Victoza 2-Nigel 0.6 mg/0.1 mL (18 mg/3 mL) Pen Injector 1.2 mg SUBCUT QDAY Levemir FlexTouch U-100 Insuln 100 unit/mL (3 mL) insulin pen 55 units subcut BID Rx Instructions: 50 units and 45 untis at night amlodipine 5 mg Tablet 5 mg PO DAILY Qty: 30 2RF Discharge Instructions Additional Instructions: -liquids only for next 24 hrs -you WILL have a sore throat. Gargle w/salt water every 1-2 hrs as needed. -crush pills -MAKE APPT WITH DENTIST FOR DENTURES -food needs to cut into very small pieces or pureed, per speech recommendations. Take a drink of water after EVERY bite of food Post EGD Instruction ?You had anesthesia for your EGD/stomach scope today.? For your safety, please do the following for the next twenty-four (24) hours: Do Not operate a motor vehicle (car, truck, motorcycle, etc.) Do Not drink alcoholic beverages or use any recreational drugs for the first 24 hours or while taking pain medications. The medications in your body may have a reaction that can be dangerous. Do Not make any important decisions or sign any important papers You have just had a gastroscopy (EGD) or upper GI tract examination. It is important for your smooth recovery that you carefully follow the recommendations below. Do not hesitate to call if any questions should arise about your anesthesia, condition, or care. -Symptoms you may experience during the next 24 hours: ?1. Mild abdominal pain or excessive gas or a bloated feeling which improves with rest, liquids, eating? slightly, and walking as tolerated. 2. Drowsiness and/or forgetfulness because of the medications you were given. 4. A sore throat which you can treat with throat lozenges or by gargling with salt water 4-5 times a day. 5. Redness at the site of your IV which you can treat with warm compresses. SPECIAL INSTRUCTIONS: 1. Diet: see above. Diabetic diet 2. Restart regular medications in one hour. 3. No aspirin or non-steroidal containing medication for three days. 4. No lifting over 20 pounds or strenuous activity for the first 24 hours after your procedure. After 24 hours there are no restrictions on your activity, but you may feel fatigued for a few days. Findings: Treatment: -Medications: -Continue to follow lifestyle modifications: No alcohol, tobacco products, Aspirin or NSAID's (ibuprofen, Motrin, Naprosyn, aleve, etc).? Try to limit/avoid:? soda pop/any carbonated beverages, caffeine (including tea & chocolate), and acidic foods, (tomatoes, citrus, onions, peppermints) spicy or fried/fatty foods. Do not lie down for 30 minutes after eating, and do not eat 2 hours prior to bedtime. Avoid wearing tight fitting clothing/ belts. Call the office at [phone] (Office) or [phone] (Hospital), or go to the ER right away if you notice any of the followin. Vomiting blood and /or ?coffee ground? material. ?2. Worsening of abdominal pain or cramping. ?3. Trouble with breathing, cough, and/or fever (temperature above 101.5 F). 4. Increasing pain with swallowing. ?5. Chest pain. 6. Any new symptoms. 7. Worsening of the redness at the IV site Activity:: Activity as Tolerated Diet:: see above Discharge Orders Discharge Orders: Discharge Order (Routine); Ordered 02/15/22 Ordered By: Brie Lux DS: Diagnosis Discharge Diagnosis (1) Esophageal foreign body: Status: Acute (2) Food impaction of esophagus: Status: Acute (3) Macrocytic anemia: Status: Acute (4) Gastroparesis diabeticorum: Status: Acute (5) Kidney transplant recipient: Status: Acute (6) COPD (chronic obstructive pulmonary disease): Status: None (7) Hypertension: Status: Chronic (8) Hyperlipidemia: Status: Chronic (9) CAD (coronary artery disease): Status: Chronic (10) GERD (gastroesophageal reflux disease): Status: Chronic (11) Asthma: Status: Chronic (12) Chronic anxiety: Status: Chronic (13) GERD (gastroesophageal reflux disease): (14) Hyperlipidemia: (15) Obesity: (16) MELISSA (obstructive sleep apnea): (17) Status post bilateral below knee amputation: Status: Chronic (18) MELISSA (obstructive sleep apnea): Status: Chronic (19) Wenckebach second degree AV block: Status: Acute (20) Sensory hearing loss, bilateral: Status: Acute (21) Atrial fibrillation: Status: Chronic (22) Kidney transplant recipient: Status: Chronic (23) Edentulous: Status: Acute Asessment and Plan: -Need to make appt w/ [facility]!
[2022-02-15] MEDS: Lactated Ringers 1,000 ML 80 ML IV (16:28)
--- NOTE | 2022-02-15 16:28 | W.PM.ENDDOP ---
Date of service: 02/15/22 Time of Service: 16:28 Endoscopy Report DATE OF PROCEDURE: 02/15/22 PRE-OP DIAGNOSIS: esohageal FB SURGEON: Brie Lux ANESTHESIA TYPE: General:No Airway COMPLICATIONS: None DISPOSITION: PACU PROCEDURE DESCRIPTION: After informed consent was obtained the patient was take to the procedure room and placed in a supine position. Monitors were applied and a time out was done. The patients name, date of , procedure type, allergies to medications and metal in their body was reviewed. A bite block was placed and the patient was sedated. Once sedated and comfortable the gastroscope was advanced through the oropharynx which was grossly normal into the esophagus. The food bolus is in the proximal esophagus, approximately 3 cm below the upper esophageal sphincter. It is spaghetti noodles. These are broken up with a grasper and then partially removed with suction until we get small enough aliquot that I can push the bolus through into the stomach. He does have a hiatal hernia/incompetent lower esophageal sphincter. There is no stricture or stenosis noted. There are no varices or Schatzki's ring. He has some mild irritation in the proximal esophagus. There are no anatomic impediments to swallowing. The patient had a swallow eval with speech that shows that he does have some physiologic issues with swallowing. he needs to get dentures so he can chew his food. He is swallowing his food whole and not chewing. Patient needs to be on a pur?ed diet until he can get dentures The scope was removed and the patient was woken up and taken back to [facility] in stable condition.
--- NOTE | 2022-02-15 17:01 | W.PM.DS.N ---
Date of service: 02/15/22 Time of Service: 17:02 DS: Diagnosis Discharge Diagnosis (1) Esophageal foreign body: Status: Acute (2) Food impaction of esophagus: Status: Acute (3) Macrocytic anemia: Status: Acute (4) Gastroparesis diabeticorum: Status: Acute (5) Kidney transplant recipient: Status: Acute (6) COPD (chronic obstructive pulmonary disease): Status: None (7) Hypertension: Status: Chronic (8) Hyperlipidemia: Status: Chronic (9) CAD (coronary artery disease): Status: Chronic (10) GERD (gastroesophageal reflux disease): Status: Chronic (11) Asthma: Status: Chronic (12) Chronic anxiety: Status: Chronic (13) GERD (gastroesophageal reflux disease): (14) Hyperlipidemia: (15) Obesity: (16) MELISSA (obstructive sleep apnea): (17) Status post bilateral below knee amputation: Status: Chronic (18) MELISSA (obstructive sleep apnea): Status: Chronic (19) Wenckebach second degree AV block: Status: Acute (20) Sensory hearing loss, bilateral: Status: Acute (21) Atrial fibrillation: Status: Chronic (22) Kidney transplant recipient: Status: Chronic (23) Edentulous: Status: Acute Discharge Plan Disposition Patient Disposition: HOME Condition: Good Discharge Details Attending Provider: Brie Lux Primary Care Provider: Violetta Sanford Home Meds and New Rx's Prescriptions: No Action folic acid 1 mg tablet 1 mg PO DAILY mycophenolate mofetil [CellCept] 250 mg capsule 500 mg PO BID calcitriol 0.25 mcg capsule 0.25 mcg PO DAILY mupirocin 2 % ointment 1 applic topical TID Qty: 15 0RF aspirin [[place] Low Dose Aspirin] 81 MG tablet,delayed release (DR/EC) 81 mg PO DAILY omeprazole [Prilosec] 40 MG capsule,delayed release(DR/EC) 40 mg PO DAILY montelukast 10 MG tablet 10 mg PO DAILY multivitamin [Daily Multi-Vitamin] 1 EACH tablet 1 ea PO DAILY hydralazine 100 mg tablet 100 mg PO TID metoprolol succinate 50 mg tablet extended release 24 hr 50 mg PO BID fluticasone propionate 50 mcg/actuation spray,suspension 1 spray intranasal DAILY Rx Instructions: administer into each nostril vitamin B complex [B Complex-Vitamin B12] Tablet 1 tab PO BID tacrolimus [Prograf] 1 mg capsule 1 mg PO Q12H cholecalciferol (vitamin D3) [Vitamin D3] 2,000 UNIT tablet 2,000 unit PO DAILY fluticasone propionate 16 GM spray,suspension 2 spry NS DAILY PRN albuterol sulfate [Ventolin HFA] 90 mcg/actuation Hfa Aerosol Inhaler 90 mcg Inhalation 4-6XD mycophenolate mofetil [CellCept] 250 mg Capsule 500 mg PO BID ipratropium-albuterol 0.5 mg-3 mg(2.5 mg base)/3 mL Solution For Nebulization 3 ml UPD Q6H Qty: 0 0RF tacrolimus 0.5 mg Capsule 1 mg PO DAILY Qty: 0 0RF Rx Instructions: takes BID insulin aspart U-100 [Novolog Flexpen U-100 Insulin] 100 unit/mL Insulin Pen 0 units subcut 0800,1200,1700 Qty: 0 0RF Rx Instructions: sliding scale atorvastatin [Lipitor] 20 MG tablet 1 tab PO DAILY primidone 50 mg Tablet 50 mg PO TID Rx Instructions: 08/16/20, 07/26 tab bid Victoza 2-Nigel 0.6 mg/0.1 mL (18 mg/3 mL) Pen Injector 1.2 mg SUBCUT QDAY Levemir FlexTouch U-100 Insuln 100 unit/mL (3 mL) insulin pen 55 units subcut BID Rx Instructions: 50 units and 45 untis at night amlodipine 5 mg Tablet 5 mg PO DAILY Qty: 30 2RF Discharge Instructions Additional Instructions: -liquids only for next 24 hrs -you WILL have a sore throat. Gargle w/salt water every 1-2 hrs as needed. -crush pills -MAKE APPT WITH DENTIST FOR DENTURES -food needs to cut into very small pieces or pureed, per speech recommendations. Take a drink of water after EVERY bite of food Post EGD Instruction ?You had anesthesia for your EGD/stomach scope today.? For your safety, please do the following for the next twenty-four (24) hours: Do Not operate a motor vehicle (car, truck, motorcycle, etc.) Do Not drink alcoholic beverages or use any recreational drugs for the first 24 hours or while taking pain medications. The medications in your body may have a reaction that can be dangerous. Do Not make any important decisions or sign any important papers You have just had a gastroscopy (EGD) or upper GI tract examination. It is important for your smooth recovery that you carefully follow the recommendations below. Do not hesitate to call if any questions should arise about your anesthesia, condition, or care. -Symptoms you may experience during the next 24 hours: ?1. Mild abdominal pain or excessive gas or a bloated feeling which improves with rest, liquids, eating? slightly, and walking as tolerated. 2. Drowsiness and/or forgetfulness because of the medications you were given. 4. A sore throat which you can treat with throat lozenges or by gargling with salt water 4-5 times a day. 5. Redness at the site of your IV which you can treat with warm compresses. SPECIAL INSTRUCTIONS: 1. Diet: see above. Diabetic diet and liquids for the next 24 hrs 2. Restart regular medications in one hour. 3. No aspirin or non-steroidal containing medication for three days. 4. No lifting over 20 pounds or strenuous activity for the first 24 hours after your procedure. After 24 hours there are no restrictions on your activity, but you may feel fatigued for a few days. -Continue to follow lifestyle modifications: No alcohol, tobacco products, Aspirin or NSAID's (ibuprofen, Motrin, Naprosyn, aleve, etc).? Try to limit/avoid:? soda pop/any carbonated beverages, caffeine (including tea & chocolate), and acidic foods, (tomatoes, citrus, onions, peppermints) spicy or fried/fatty foods. Do not lie down for 30 minutes after eating, and do not eat 2 hours prior to bedtime. Avoid wearing tight fitting clothing/ belts. Call the office at [phone] (Office) or [phone] (Hospital), or go to the ER right away if you notice any of the followin. Vomiting blood and /or ?coffee ground? material. ?2. Worsening of abdominal pain or cramping. ?3. Trouble with breathing, cough, and/or fever (temperature above 101.5 F). 4. Increasing pain with swallowing. ?5. Chest pain. 6. Any new symptoms. 7. Worsening of the redness at the IV site Activity:: Activity as Tolerated Diet:: see above Discharge Orders Discharge Orders: Discharge Order (Routine); Ordered 02/15/22 Ordered By: Brie Lux DS: Summary Time Spent with Patient providing and/or coordinating discharge services: Less than 30 minutes Status at Discharge Functional status at discharge: uses cane/walker Overall status at discharge: patient is progressing back to baseline Mental Status: mental status grossly normal Speech and Movement: speech and movement normal Mood: congruent mood Affect: normal affect Exam Psych Mental Status: mental status grossly normal Speech and Movement: speech and movement normal Mood: congruent mood Affect: normal affect DS: Data Vitals/I&O Vitals and I&O: Vital Signs Temperature 36.4 C L 02/15/22 15:14 Temperature Source Oral 02/15/22 15:14 Pulse 68 02/15/22 15:14 Respiratory Rate 14 02/15/22 15:14 Respiratory Effort Non-Labored 02/15/22 13:33 Respiratory Pattern Irregular 02/15/22 13:33 Blood Pressure 174/71 H 02/15/22 15:14 Blood Pressure Position Sitting 02/15/22 13:07 Pulse Oximetry 96 02/15/22 15:14 Oxygen Delivery Method Room Air 02/15/22 15:14 Oxygen Flow Rate 0 02/15/22 15:14 Pain Level 0 02/15/22 16:21 Intake & Output 02/14/22 02/15/22 02/15/22 23:59 11:59 23:59 Weight 120.656 kg Data Completed and Pending Labs on day of discharge: Labs from last 24 hours 02/15/22 14:56 COVID-19 Source Nasal/Nares SARS-CoV-2 (PCR) Negative PFSH All Active Problems Edentulous (Acute) Esophageal foreign body (Acute) Food impaction of esophagus (Acute) Macrocytic anemia (Acute) Gastroparesis diabeticorum (Acute) Kidney transplant recipient (Acute) Chronic kidney disease (Chronic) Hypertension (Chronic) Hyperlipidemia (Chronic) CAD (coronary artery disease) (Chronic) GERD (gastroesophageal reflux disease) (Chronic) Asthma (Chronic) Chronic anxiety (Chronic) Chronic depression (Chronic) Status post bilateral below knee amputation (Chronic) Intention tremor (Chronic) Status post appendectomy (Acute) Physical medicine and rehabilitation procedures (Acute 06/27/13) Dysphagia (Acute) Infection of amputation stump of right lower extremity (Acute) CHF (congestive heart failure) (Acute) Diastolic CHF (Acute) CAP (community acquired pneumonia) (Acute) Acute kidney injury superimposed on chronic kidney disease (Acute) Uncontrolled insulin dependent diabetes mellitus (Acute) Ambulatory dysfunction (Acute) Sepsis (Acute) MELISSA (obstructive sleep apnea) (Chronic) Left lower lobe pneumonia (Acute) Wenckebach second degree AV block (Acute) Fluid level behind tympanic membrane of left ear (Acute) Sensory hearing loss, bilateral (Acute) Tinnitus, bilateral (Acute) Osteoma of ear canal (Acute) Atrial fibrillation (Chronic) Kidney transplant recipient (Chronic) 2005 Medical History Adenomatous colon polyp Anxiety and depression Diabetes mellitus Erectile dysfunction GERD (gastroesophageal reflux disease) History of colon polyps HTN (hypertension) Hydrocele Hyperlipidemia Intention tremor Lumbar back pain Obesity MELISSA (obstructive sleep apnea) Personal history of allergy to other antibiotic agent Sciatica Stage 3 severe COPD by GOLD classification Tremor Tricuspid insufficiency Vitamin B 12 deficiency Surgical History Colonoscopy - MAC (02/01/17) EGD - MAC (04/02/16) History of below-knee amputation of both lower extremities 2010 History of colonoscopy (~10/2020) Hx of amputation below knee Kidney transplant recipient Family History Brother Personal history of malignant neoplasm Social History Smoking/Tobacco Use Status: Former Tobacco Use Quit Date: 07/25/90 Smoking risk assessment performed?: Yes Alcohol Intake: never Drug use: Never Substance use type: does not use Do you feel safe at home: Yes Do you feel safe in your relationship?: Yes
--- NOTE | 2022-02-15 17:35 | W.ANESPOSTOP ---
Postoperative Evaluation Date, Time and Location Date Performed: 02/15/22 Time Performed: 17:35 Patient Location: Intensive Care Unit Vital Signs Most Recent Imported Vital Signs: Most Recent Vital Signs Temp Pulse Resp BP Pulse Ox 36.4 C L 67 25 H 151/72 H 96 02/15/22 15:14 02/15/22 17:27 02/15/22 17:27 02/15/22 17:27 02/15/22 15:14 Pain Score Most Recent Pain Score: Most Recent Pain Score Pain Level 0 02/15/22 16:21 Assessment Mental Status: Awake (Alert & Oriented to Patient Baseline) Airway and Respiratory Function: Patent airway with normal (patient baseline) respiratory exam Cardiovascular Function: Hemodynamically Stable Hydration Status: Volume Overload (See Note) Nausea & Vomiting: No Nausea or Vomiting Pain: Pt. Denies Any Pain Peripheral Nerve Block: Patient did not receive a nerve block
== END 2022-02-15 18:21 | disposition home or self-care (01) ==
LOC: ER 16:02 → DSU 16:11 → ICU 18:14 → ER 02-17 09:12 → DSU 02-17 10:38 → MS 02-17 10:42 → DSU 02-17 10:42
PROVIDERS: Emergency Provider Registered Nurse Emergency; PCP Family Medicine; Visit Provider Surgery
PROC: 0DC68ZZ Extirpation of Matter from Stomach, Via Natural or Artificial Opening Endoscopic (ICD-10-PCS; CPT 43247; principal; 2022-02-15 16:00)
DX: T18.128A Food in esophagus causing other injury, initial encounter (principal); Z20.822 Contact with and (suspected) exposure to COVID-19; E11.9 Type 2 diabetes mellitus without complications; G47.33 Obstructive sleep apnea (adult) (pediatric); K21.9 Gastro-esophageal reflux disease without esophagitis; I10 Essential (primary) hypertension; E78.5 Hyperlipidemia, unspecified; E53.8 Deficiency of other specified B group vitamins; J44.9 Chronic obstructive pulmonary disease, unspecified
CPT/HCPCS: 43215; 87635; 96374; 99285; J1610; J2405

== ENCOUNTER 2022-02-24 03:09 | Outpatient (CLI) | payer MEDICARE, OTHER, SELFPAY ==
[2022-02-24 11:27] LABS: Bilirubin Negative (Negative); Blood Trace-intact (Negative); Clarity Clear (Clear); Glucose 100 mg/dL (Negative); Ketones Negative (Negative); Leukocyte Esterase Negative (Negative); Nitrite Negative (Negative); Specific Gravity 1.025 (1.005-1.025); Urobilinogen 0.2 EU/dL (Up TO 0.2); pH 6.5 (5-8)
[2022-02-24 11:36] LABS: Bacteria Moderate HPF (Negative); C & S Indicated? Yes; Casts 0-2 Hyaline LPF (Negative); Crystals Negative HPF (Negative); Epithelial Cells Rare HPF (Negative); Mucus Trace (Negative); WBC 0-2 HPF (0-5)
[2022-02-24 11:43] LABS: Abs Immature Grans 0.04 10^3/uL (0.0-0.06); Absolute Basophil Count 0.05 10^3/uL (0.0-0.2); Absolute Eosinophil Count 0.32 10^3/uL (0.0-0.7); Absolute Lymphocyte Count 1.76 10^3/uL (1.2-3.4); Absolute Monocyte Count 0.52 10^3/uL (0.1-0.8); Absolute Neutrophil Count 3.83 10^3/uL (1.2-6.7); Basophils % 0.8; Eosinophils % 4.9; HGB 9.9 g/dL (13.5-17.5); Immature Grans % 0.6; MCH 29.1 pg (27.0-33.0); MCHC 30.9 % (32.0-36.0); MCV 94 fL (80-95); MPV 8.5 fL (8.0-11.0); Neutrophils % 58.7; Platelet Count 191 10^3/uL (130-400); RDW 15.1 % (11.8-14.1); RDW-SD 51.9 fL; Reticulocyte 1.8 % (0.5-2.4); WBC 6.52 10^3/uL (4.4-10.8)
[2022-02-24 12:09] LABS: Iron 47 ug/dL (65-175); Total Iron Binding Capacity 179 ug/dL (250-450); Transferrin Sat 26 % (20-55)
[2022-02-24 12:10] LABS: COMMENT (LAB VIEW ONLY) 68.35 mg/dL; PROTEIN 387.1 mg/dL; Prot/Crea Ur Ratio 5.66
[2022-02-24 12:22] LABS: ALT 17 U/L (16-63); AST 14 U/L (15-37); Albumin 2.8 g/dL (3.4-5.0); Alkaline Phosphatase 141 U/L (46-116); Anion Gap 8.7 mmol/L (3-11); BUN 28 mg/dL (7-18); Bilirubin, Total 0.3 mg/dL (0.2-1.0); CO2 25.3 mmol/L (21.0-32.0); CREATININE 3.3 mg/dL (0.70-1.30); Calcium 8.5 mg/dL (8.5-10.1); Chloride 108 mmol/L (98-107); Estimated GFR 18.74 (mL/min/1.73m2); Ferritin 105 ng/mL (26-388); Glucose 123 mg/dL (74-106); Potassium 4.3 mmol/L (3.5-5.1); Sodium 142 mmol/L (136-145)
[2022-02-24 12:25] LABS: Magnesium 1.6 mg/dL (1.8-2.4); PHOSPHORUS 3.8 mg/dL (2.6-4.7); Uric Acid 7.1 mg/dL (3.5-7.2)
[2022-02-24 12:32] LABS: Hemoglobin A1C 6.1 % (<5.7)
[2022-02-24 13:16] LABS: Calculated LDL 55 mg/dL (<100); Cholesterol 108 mg/dL (<200); HDL Cholesterol 29 mg/dL (40-60); Triglyceride 123 mg/dL (<150); Vitamin B12 1065 pg/mL (193-986)
[2022-02-24 13:23] LABS: Folate > 20.0 ng/mL (8.6-20.0)
[2022-02-24 23:22] LABS: Parathyroid Hormone,Intact 162 pg/mL (19-88)
[2022-02-25 09:08] LABS: Magnesium Random Urine 2.9 mg/dL (See Note)
[2022-02-25 09:14] LABS: Calcium (Random Urine) <1.0 mg/dL (See Note); Phosphorus Urine 49.3 mg/dL (See Note)
[2022-02-25 13:36] LABS: Tacrolimus 3.7 ng/mL (See Note)
[2022-02-26 13:33] LABS: BKV DNA Detect/Quant, U Undetected IU/mL (Undetected)
[2022-02-26 23:33] LABS: 25-Hydroxy D Total 31 ng/mL; 25-Hydroxy D2 <4.0 ng/mL; 25-Hydroxy D3 31 ng/mL
[2022-03-01 17:54] LABS: 1,25-Dihydroxyvitamin D <8.0 pg/mL (18-64)
== END 2022-02-24 03:10 | disposition home or self-care (01) ==
LOC: LBO 03:09
PROVIDERS: Internal Medicine Hematology & Oncology; PCP Family Medicine; Visit Provider Internal Medicine Nephrology
DX: N18.4 Chronic kidney disease, stage 4 (severe) (principal); Z79.899 Other long term (current) drug therapy; E55.9 Vitamin D deficiency, unspecified; D63.1 Anemia in chronic kidney disease; Z94.0 Kidney transplant status; Z29.8 Encounter for other specified prophylactic measures
CPT/HCPCS: 36415; 80053; 80061; 82306; 83735; 87077; 87799; 80197; 81003; 81015; 82340; 82565; 82607; 82652; 82728; 82746; 83036; 83540; 83550; 83970; 84100; 84105; 84156; 84550; 85025; 85045; 87086; 87186

== ENCOUNTER 2022-02-26 01:56 | Outpatient (CLI) | payer MEDICARE, OTHER, SELFPAY ==
[2022-03-01 11:48] LABS: SARS-CoV-2 Spike Ab, Interp Positive; SARS-CoV-2 Spike Ab, Quant >250 U/mL
== END 2022-02-26 01:57 | disposition home or self-care (01) ==
LOC: LBO 01:56
PROVIDERS: PCP Family Medicine; Visit Provider Internal Medicine Nephrology
DX: N18.4 Chronic kidney disease, stage 4 (severe) (principal); D63.1 Anemia in chronic kidney disease; E55.9 Vitamin D deficiency, unspecified; Z94.0 Kidney transplant status; Z79.899 Other long term (current) drug therapy; Z01.84 Encounter for antibody response examination
CPT/HCPCS: 36415; 86769

== ENCOUNTER 2022-04-21 09:41 | Outpatient (CLI) | payer MEDICARE, OTHER, SELFPAY ==
[2022-04-21 10:55] LABS: Abs Immature Grans 0.01 10^3/uL (0.0-0.06); Absolute Basophil Count 0.05 10^3/uL (0.0-0.2); Absolute Eosinophil Count 0.24 10^3/uL (0.0-0.7); Absolute Lymphocyte Count 1.72 10^3/uL (1.2-3.4); Absolute Monocyte Count 0.55 10^3/uL (0.1-0.8); Absolute Neutrophil Count 3.52 10^3/uL (1.2-6.7); Basophils % 0.8; Eosinophils % 3.9; HCT 31.9 % (40.0-50.0); HGB 9.8 g/dL (13.5-17.5); Immature Grans % 0.2; Lymphocytes % 28.2; MCH 29.5 pg (27.0-33.0); MCHC 30.7 % (32.0-36.0); MCV 96 fL (80-95); MPV 8.4 fL (8.0-11.0); Neutrophils % 57.9; Platelet Count 150 10^3/uL (130-400); RBC 3.32 10^6/uL (4.36-5.78); RDW 14.3 % (11.8-14.1); RDW-SD 50.3 fL; WBC 6.09 10^3/uL (4.4-10.8)
[2022-04-21 11:01] LABS: Bilirubin Negative (Negative); Blood Negative (Negative); Clarity Clear (Clear); Glucose 250 mg/dL (Negative); Ketones Negative (Negative); Leukocyte Esterase Negative (Negative); Nitrite Negative (Negative); Urobilinogen 0.2 EU/dL (Up TO 0.2)
[2022-04-21 11:08] LABS: Bacteria Negative HPF (Negative); C & S Indicated? No; Casts 3-5 Hyaline LPF (Negative); Crystals Negative HPF (Negative); Epithelial Cells Rare HPF (Negative); Mucus Negative (Negative); RBC 0-2 HPF (0-2); WBC Negative HPF (0-5)
[2022-04-21 11:10] LABS: Cholesterol 104 mg/dL (<200)
[2022-04-21 11:11] LABS: ALT 15 U/L (16-63); AST 11 U/L (15-37); Albumin 2.8 g/dL (3.4-5.0); Alkaline Phosphatase 155 U/L (46-116); Anion Gap 7.8 mmol/L (3-11); BUN 42 mg/dL (7-18); Bilirubin, Total 0.3 mg/dL (0.2-1.0); CO2 24.2 mmol/L (21.0-32.0); Calcium 8.9 mg/dL (8.5-10.1); Chloride 108 mmol/L (98-107); Estimated GFR 16.01 (mL/min/1.73m2); Glucose 196 mg/dL (74-106); Magnesium 1.6 mg/dL (1.8-2.4); PHOSPHORUS 3.3 mg/dL (2.6-4.7); Potassium 4.7 mmol/L (3.5-5.1); Sodium 140 mmol/L (136-145); Total Protein 7.5 g/dL (6.4-8.2); Uric Acid 6.9 mg/dL (3.5-7.2)
[2022-04-21 11:18] LABS: COMMENT (LAB VIEW ONLY) 73.67 mg/dL; PROTEIN 359.6 mg/dL; Prot/Crea Ur Ratio 4.88
[2022-04-21 11:18] LABS: CREATININE 3.9 mg/dL (0.70-1.30)
[2022-04-21 11:41] LABS: Ferritin 90 ng/mL (26-388)
[2022-04-21 11:52] LABS: Iron 44 ug/dL (65-175); Total Iron Binding Capacity 158 ug/dL (250-450); Transferrin Sat 28 % (20-55)
[2022-04-22 13:47] LABS: Tacrolimus 2.1 ng/mL (See Note)
== END 2022-04-21 09:42 | disposition home or self-care (01) ==
LOC: LBO 09:43
PROVIDERS: Internal Medicine Nephrology; PCP Family Medicine; Visit Provider Internal Medicine Hematology & Oncology
DX: N18.4 Chronic kidney disease, stage 4 (severe); Z94.0 Kidney transplant status; Z79.899 Other long term (current) drug therapy
CPT/HCPCS: 36415; 80053; 80197; 85027; 81003; 81015; 82465; 82565; 82728; 83540; 83550; 83735; 84100; 84156; 84550; 85025

== ENCOUNTER 2022-04-30 16:08 | Outpatient (REF) | payer MEDICARE, OTHER, SELFPAY | END 2022-04-30 16:09 | disposition home or self-care (01) | LOC: LBN 16:08 | PROVIDERS: PCP Family Medicine; Visit Provider Physician Assistant | DX: L02.91 Cutaneous abscess, unspecified (principal) | CPT/HCPCS: 87077; 87070; 87186; 87205 ==

== ENCOUNTER 2022-05-19 03:25 | Outpatient (CLI) | payer MEDICARE, OTHER, SELFPAY ==
[2022-05-19 12:54] LABS: Bilirubin Negative (Negative); Blood Negative (Negative); Clarity Clear (Clear); Glucose 100 mg/dL (Negative); Ketones Negative (Negative); Leukocyte Esterase Negative (Negative); Nitrite Negative (Negative); Specific Gravity 1.025 (1.005-1.025); Urobilinogen 0.2 EU/dL (Up TO 0.2)
[2022-05-19 13:05] LABS: WBC 0-2 HPF (0-5)
[2022-05-19 13:06] LABS: Bacteria Few HPF (Negative); C & S Indicated? No; Casts Negative LPF (Negative); Crystals Negative HPF (Negative); Epithelial Cells Rare HPF (Negative); Mucus Trace (Negative); Other Cells Negative (Negative); RBC Negative HPF (0-2)
[2022-05-19 13:09] LABS: Abs Immature Grans 0.01 10^3/uL (0.0-0.06); Absolute Basophil Count 0.03 10^3/uL (0.0-0.2); Absolute Eosinophil Count 0.24 10^3/uL (0.0-0.7); Absolute Lymphocyte Count 2.21 10^3/uL (1.2-3.4); Absolute Monocyte Count 0.73 10^3/uL (0.1-0.8); Absolute Neutrophil Count 3.45 10^3/uL (1.2-6.7); Basophils % 0.4; Eosinophils % 3.6; HCT 31.1 % (40.0-50.0); HGB 9.6 g/dL (13.5-17.5); Immature Grans % 0.1; Lymphocytes % 33.1; MCH 29.4 pg (27.0-33.0); MCHC 30.9 % (32.0-36.0); MCV 95 fL (80-95); MPV 8.6 fL (8.0-11.0); Monocytes % 10.9; Neutrophils % 51.9; Platelet Count 200 10^3/uL (130-400); RBC 3.26 10^6/uL (4.36-5.78); RDW 14.3 % (11.8-14.1); RDW-SD 49.8 fL; WBC 6.67 10^3/uL (4.4-10.8)
[2022-05-19 13:27] LABS: COMMENT (LAB VIEW ONLY) 76.48 mg/dL; PROTEIN 305.8 mg/dL; Prot/Crea Ur Ratio 3.99
[2022-05-19 13:30] LABS: ALT 15 U/L (16-63); AST 14 U/L (15-37); Albumin 2.8 g/dL (3.4-5.0); Alkaline Phosphatase 135 U/L (46-116); Anion Gap 8.8 mmol/L (3-11); BUN 48 mg/dL (7-18); Bilirubin, Total 0.4 mg/dL (0.2-1.0); CO2 21.2 mmol/L (21.0-32.0); Calcium 8.9 mg/dL (8.5-10.1); Chloride 109 mmol/L (98-107); Estimated GFR 15.44 (mL/min/1.73m2); Glucose 161 mg/dL (74-106); Magnesium 1.6 mg/dL (1.8-2.4); PHOSPHORUS 4.5 mg/dL (2.6-4.7); Potassium 4.7 mmol/L (3.5-5.1); Sodium 139 mmol/L (136-145); Total Protein 7.5 g/dL (6.4-8.2); Uric Acid 7.3 mg/dL (3.5-7.2)
[2022-05-19 13:35] LABS: Iron 37 ug/dL (65-175); Total Iron Binding Capacity 206 ug/dL (250-450); Transferrin Sat 18 % (20-55)
[2022-05-19 13:40] LABS: Ferritin 99 ng/mL (26-388)
[2022-05-19 13:41] LABS: Cholesterol 116 mg/dL (<200)
[2022-05-20 13:57] LABS: Tacrolimus 5.3 ng/mL (See Note)
== END 2022-05-19 03:26 | disposition home or self-care (01) ==
LOC: LBO 03:25
PROVIDERS: PCP Family Medicine; Visit Provider Internal Medicine Hematology & Oncology
DX: N18.4 Chronic kidney disease, stage 4 (severe) (principal); Z94.0 Kidney transplant status; Z79.899 Other long term (current) drug therapy; Z29.8 Encounter for other specified prophylactic measures; D63.1 Anemia in chronic kidney disease
CPT/HCPCS: 36415; 80053; 85027; 80197; 81003; 81015; 82465; 82565; 82728; 83540; 83550; 83735; 84100; 84156; 84550; 85025

== ENCOUNTER 2022-05-24 10:41 | Outpatient (CLI) | payer MEDICARE, OTHER, SELFPAY ==
--- OUTSIDE RECORDS SUMMARY | 2022-05-24 10:44 | XMS_ITS | Encounter Summary ---
:1955 Author Organization [facility] Address [address] [place] [address] Care Team Providers Name Role Phone Violetta Sanford MD Primary Care Provider Encounter Details Date Type Department Care Team Description 10/29/2020 Lab Requisition [facility] Outr Resulting Lab, Pathology & Laboratory Provider [facility] [address] [place], [place] [id number] Social History Tobacco Use Types Packs/Day Years Used Date Former Smoker Smokeless Tobacco: Never Used Sex Assigned at Date Recorded Not on file documented as of this encounter Functional Status Functional Status Response Date of Assessment Are you deaf or do you have serious difficulty hearing? No 11/16/2018 Are you blind or do you have serious difficulty seeing, Yes 11/16/2018 even when wearing glasses? Do you have serious difficulty walking or climbing Yes 11/16/2018 stairs? (5 years old or older) Do you have difficulty dressing or bathing? (5 years old No 11/16/2018 or older) Because of a physical, mental, or emotional condition, do Ye s 11/16/2018 you have difficulty doing errands alone such as visiting a doctor's office or shopping? (15 years old or older) Cognitive Status Response Date of Assessment Because of a physical, mental, or emotional condition, do No 11/16/2018 you have serious difficulty concentrating, remembering, or making decisions? (5 years old or older) documented as of this encounter Plan of Treatment Not on filedocumented as of this encounter Procedures Procedure Name Priority Date/Time Associated Diagnosis Comme nts TACROLIMUS (FK506) Routine 10/29/2020 12:17 Resul ts for this EDT procedure are i n the results section. documented in this encounter Results TACROLIMUS (FK506) (10/29/2020 12:17 EDT) Tacrolimus 4.5 See Note [facility] Comment: ng/mL LABORATORY NOTE: SERVICES Therapeutic range is dependent on the clinical situati on. Assayed utilizing [employer] miluminescent technology. ??Values obtained using different assay methods cannot be used interchangeably. Specimen Blood - Venous blood (substance) Performing Organization Address City/State/ZIP Code Phon e Number [facility] [address] [place] [address] SERVICES documented in this encounter Visit Diagnoses Not on filedocumented in this encounter Care Teams Account Receivable Associate Relationship Specialty Start Date End Date Violetta Sanford MD PCP - General 04/06/[address] [place] [phone] documented as of this encounter
--- OUTSIDE RECORDS SUMMARY | 2022-05-24 10:44 | XMS_ITS | Encounter Summary ---
:1955 Author Organization [facility] Address [address] [place] [address] Care Team Providers Name Role Phone Violetta Sanford MD Primary Care Provider Reason for Visit Reason Onset Date Comments Discuss Possible Transfer 11/13/2018 Encounter Details Date Type Department Care Team Description 11/13/2018 Telephone [facility] TeleronMonae MD Discuss Possible MEDICINE [address] Transfer [address] [place] [id number] Social History Tobacco Use Types Packs/Day Years Used Date Never Assessed Sex Assigned at Date Recorded Not on file documented as of this encounter Miscellaneous Notes Telephone Encounter - Dionne, Monae Felton MD - 11/13/[id number] Lynch, hospitalist at [facility]: Sylvia 63yo with history of renal transplant years ago on prograf, DM, PVD with B/l BKA admitted in middle of night last night due to respiratory symptoms found to have LLL infiltrate on CT chest started on Doxy and aztreonam for community acquired pneumonia. Blood cultures drawn prior to abx. Tm 39.2. Also with Acute on CKD ?stage with Cr 2.5 from baseline 1.8-1.9. Follow with renal transplant at [facility], but they have no beds and told Dr. Lynch they do not have a waiting list. Also with BS in 300-360 range on Levemir 50 units qAM and 80 units qPM with 20 units aspart qAC withSSI. May need insulin drip but titrating insulin dosing. Cr This morning now 2.7 from 2.5 on admission after giving IVF. Na 136 Bicarb 21.8 BUN 38 Cr 2.7 WBC 9.7 Hb 12 Plt 216 Flu swab negative Current VS 37.1, 143/68, 72, 20, 99% on room air Patient accepted in transfer, however no bed availability likely for 24-[address] Lynch will try to call [facility] again in the morning since patient does receive his usual carethere. She will notify us if he does get a bed there. Time spent coordinating care: 30 minutes Monae Truong M.D. Internal Medicine Hospitalist Attending Pager #[phone] documented in this encounter Plan of Treatment Not on filedocumented as of this encounter Visit Diagnoses Not on filedocumented in this encounter Care Teams Monument Mason Relationship Specialty Start Date End Date Violetta Sanford MD PCP - General 04/06/[address] [place] [phone] documented as of this encounter
--- OUTSIDE RECORDS SUMMARY | 2022-05-24 10:44 | XMS_ITS | Encounter Summary ---
:1955 Author Organization [facility] Address [address] [place] [address] Care Team Providers Name Role Phone Suhas Chowdhury MD Primary Care Provider Unavailable Encounter Details Date Type Department Care Team Description 04/02/2016 Results Only [facility]- Nilay Carreon, [address] [place] [address] (Wo rk) Social History Tobacco Use Types Packs/Day Years Used Date Never Assessed Sex Assigned at Date Recorded Not on file documented as of this encounter Plan of Treatment Not on filedocumented as of this encounter Procedures Procedure Name Priority Date/Time Associated Diagnosis Comme [facility] SURGICAL PATHOLOGY Routine 04/02/2016 12:32 Resul ts for this EDT procedure are i n the results section. documented in this encounter Results SURGICAL PATHOLOGY (04/02/2016 12:32 EDT) Pathology SURGICAL PATHOLOGY REPORT [facility] Report: Reports generated via electronic interface conta in original data; CENTER however they are lacking the format of the original re port. LABORATORY Caution should be taken when reading/interpretin g unformatted reports. SERVICES Name: ? BRETT TORRES ? Accession #: ? [id number] ? : ? 1955 (Age: 60) ??M ? Collect Date: ? 04/02/2016 ? Location: ? [facility] ? Receive Date: ? 6 ? Provider: ELVIN HUTCHISON DO Copy to: ELVIN HUTCHISON DO LEX DEVI MD ? Final Pathologic Diagnosis: STOMACH, ANTRUM, BIOPSY: - Erosive gastritis in a background of m arked reactive (chemical) gastropathy. - Immunohistochemical staining for Helicobacter pylori is negative. Comment: ANTIBODY (CLONE)(BLOCK):RESULT H PYLORI (Rabbit Monoclonal (SP48), Lerna) (block on e): Negative. NOTE: ??One or more of the reagents used in imm unoperoxidase testing in this case may not have been cleared or approved by the U.S. Food and Drug Administration (FDA). ??The FDA has determined that such clearance or approval is not necessary. ??These tests are used for clinical purposes. ??They should not be regarded as investigational or for research. ??These r eagents' performance characteristics have been determined by [facility]. ??The positive and negative controls worked ap propriately. This laboratory is certified unde r the Clinical Laboratory Improvement Amendments of 1988 (CLIA-88) as qualified to perform high complexity clinical laboratory testing. ?? Document reviewed and electronically signed by: FABIOLA IRELAND MD Report ??Date: 04/08/2016 07:47 By the signature above, the attending physician certif ies that he/she has personally conducted a gross and/or microscopic examin ation of the described specimens and rendered or confirmed the above diagnosi s. Specimen(s) Received: Antral bxs Clinical History: Dysphagia Gross Description: ? Received in formalin labelled with proper patient identification (initials R, R) and antral bx is a single aiken-yellow tis roshan fragment (0.4 x 0.3 x 0.2 cm). The specimen is bisected and submitted in 1. Alejandra Christianson 04/05/2016 2:36 PM End of Report Specimen Performing Organization Address City/State/ZIP Code Phon e Number [facility] [address] [place] [address] SERVICES documented in this encounter Visit Diagnoses Not on filedocumented in this encounter Care Teams Eap Clinician Relationship Specialty Start Date End Date Suhas Chowdhury MD PCP - General 10/09/09 04/05/16 documented as of this encounter
--- OUTSIDE RECORDS SUMMARY | 2022-05-24 10:44 | XMS_ITS | Encounter Summary ---
:1955 Author Organization [facility] Address [address] [place] [address] Care Team Providers Name Role Phone Violetta Sanford MD Primary Care Provider Encounter Details Date Type Department Care Team Description 08/03/2019 Lab Requisition [facility] Unknown, Provider, Pathology & Laboratory [facility] [address] [place] [address] Social History Tobacco Use Types Packs/Day Years [...] Associated Diagnosis Comme nts TACROLIMUS (FK506) Routine 08/03/2019 2:15 EST Re sults for this procedure are i n the results section. documented in this encounter Results TACROLIMUS (FK506) (08/03/2019 2:15 EST) Tacrolimus 2.8 See Note [facility] Comment: ng/mL LABORATORY SERVICES NOTE: Therapeutic range is dependent on the clinical situati on. Assayed utilizing Plurality miluminescent technology. ??Values obtained using different assay methods cannot be used interchangeably. Specimen Blood - Venous blood (substance) Performing Organization Address City/State/[facility] Code Phon e Number [facility] [address] [place] [address] SERVICES documented in this encounter Visit Diagnoses Not on filedocumented in this encounter Care Teams Plasterer Spot Relationship Specialty Start Date End Date Violetta Sanford MD PCP - General 04/06/[address] [place] [address] [phone] documented as of this encounter
--- OUTSIDE RECORDS SUMMARY | 2022-05-24 10:44 | XMS_ITS | Encounter Summary ---
:1955 Author Organization [facility] Address [address] [place] [address] Care Team Providers Name Role Phone Violetta Sanford MD Primary Care Provider Encounter Details Date Type Department Care Team Description 02/24/2022 Lab Requisition [facility] Outr Resulting Lab, Pathology & Laboratory Provider [facility] [address] [place], [place] [id number] Social History Tobacco Use Types Packs/Day Years [...] Associated Diagnosis Comme nts TACROLIMUS (FK506) Routine 02/24/2022 11:00 Resul ts for this EDT procedure are i n the results section. PTH INTACT Routine 02/24/2022 11:00 Results for this EDT procedure are i n the results section. documented in this encounter Results (ABNORMAL) PTH INTACT (02/24/2022 11:00 EDT) Pathologist Sig nature Intact PTH 162 (H) 19 - 88 pg/mL [facility]Y SERVICES Specimen Blood - Venous blood (substance) Performing Organization Address City/[facility] Phon e Number [facility] [address] [place] [address] SERVICES TACROLIMUS (FK506) (02/24/2022 11:00 EDT) Tacrolimus 3.7 See Note [facility] Comment: ng/mL LABORATORY NOTE: SERVICES Tacrolimus Therapeutic Range : 3-12 ng/mL (The goal level is based on clinical context). Assayed utilizing Rapportive miluminescent technology. ??Values obtained using different assay methods cannot be used interchangeably. Specimen Blood - Venous blood (substance) Performing Organization Address [facility] Phon e Number [facility] [address] [place] [address] SERVICES documented in this encounter Visit Diagnoses Not on filedocumented in this encounter Care Teams Voice Engineer Relationship Specialty Start Date End Date Violetta Sanford MD PCP - General 04/06/[address] [place] [phone] documented as of this encounter
--- OUTSIDE RECORDS SUMMARY | 2022-05-24 10:44 | XMS_ITS | Encounter Summary ---
:1955 Author Organization [facility] Address [address] [place] [address] Care Team Providers Name Role Phone Violetta Sanford MD Primary Care Provider Encounter Details Date Type Department Care Team Description 03/19/2020 Lab Requisition [facility] Outr Resulting Lab, Pathology & Laboratory Provider [facility] [address] [place], [place] [address] Social History Tobacco Use Types Packs/Day Years [...] Name Priority Date/Time Associated Diagnosis Comme nts PHOSPHOROUS, URINE Routine 03/19/2020 11:35 Resul ts for this RANDOM EDT procedure are i n the results section. MAGNESIUM,URINE Routine 03/19/2020 11:35 Results for this RANDOM EDT procedure are i n the results section. CALCIUM, URINE Routine 03/19/2020 11:35 Results f or this RANDOM EDT procedure are i n the results section. documented in this encounter Results CALCIUM, URINE RANDOM (03/19/2020 11:35 EDT) Calcium, Urine <1.0 See Note [facility] Comment: mg/dL LABORATORY NOTE: SERVICES Reference range has not been established for calcium concentration in random urine specimens. Specimen Urine - Urine, Clean Catch Performing Organization Address [facility] Phon e Number [facility] [address] [place] [address] SERVICES MAGNESIUM,URINE RANDOM (03/19/2020 11:35 EDT) Magnesium, Urine 3.4 See Note [facility] Comment: mg/dL CENTER LABORATORY NOTE: SERVICES Reference range has not been established for magnesium concentration in random urine specimens. Specimen Urine - Urine, Clean Catch Performing Organization Address [facility]/ZIP Code Phon e Number [facility] [address] [place] [address] SERVICES PHOSPHOROUS, URINE RANDOM (03/19/2020 11:35 EDT) Phosphorous, 29.5 See Note [facility] Urine Comment: mg/dL CENTER LABORATORY NOTE: SERVICES Reference range has not been established for phosporous concentration in random urine specimens. Specimen Urine - Urine, Clean Catch Performing Organization Address [facility] Phon e Number [facility] [address] [place] [address] SERVICES documented in this encounter Visit Diagnoses Not on filedocumented in this encounter Care Teams Wire Frame Maker Relationship Specialty Start Date End Date Violetta Sanford MD PCP - General 04/06/[address] [place] [address] [phone] documented as of this encounter
--- OUTSIDE RECORDS SUMMARY | 2022-05-24 10:44 | XMS_ITS | Encounter Summary ---
:1955 Author Organization [facility] Address [address] [place] [address] Care Team Providers Name Role Phone Violetta Sanford MD Primary Care Provider Encounter Details Date Type Department Care Team Description 02/01/2017 Hospital Encounter [facility] - S Unknown, Pro Naun mejia MD [address] [facility] [phone] [place] [address] (Work) [phone] Social History Tobacco Use Types Packs/Day Years Used Date Never Assessed Sex Assigned at Date Recorded Not on file documented as of this encounter Discharge Disposition Disposition Code Departure Means Destination Home or Self Senior Living documented in this encounter Plan of Treatment Not on filedocumented as of this encounter Visit Diagnoses Not on filedocumented in this encounter Care Teams Cloud Engineer Relationship Specialty Start Date End Date Violetta Sanford MD PCP - General 04/06/[address] [place] [address] [phone] documented as of this encounter
--- OUTSIDE RECORDS SUMMARY | 2022-05-24 10:44 | XMS_ITS | Encounter Summary ---
:1955 Author Organization [facility] Address [address] [place] [address] Care Team Providers Name Role Phone Violetta Sanford MD Primary Care Provider Encounter Details Date Type Department Care Team Description 07/23/2019 Lab Requisition [facility] Unknown, Provider, Pathology & Laboratory [facility] [address] [facility] [place] [address] Social History Tobacco Use Types Packs/Day Years [...] Associated Diagnosis Comme nts TACROLIMUS (FK506) Routine 07/23/2019 11:22 Resul ts for this EST procedure are i n the results section. documented in this encounter Results TACROLIMUS (FK506) (07/23/2019 11:22 EST) Tacrolimus 4.[address] [facility] Comment: ng/mL LABORATORY SERVICES NOTE: Therapeutic range is dependent on the clinical situati on. Assayed utilizing [employer] miluminescent technology. ??Values obtained using different assay methods cannot be used interchangeably. Specimen Blood - Venous blood (substance) Performing Organization Address City/State/[facility] Code Phon e Number [facility] [address] [place] [address] SERVICES documented in this encounter Visit Diagnoses Not on filedocumented in this encounter Care Teams Patients Transporter Relationship Specialty Start Date End Date Violetta Sanford MD PCP - General 04/06/[address] [place] [address] [phone] documented as of this encounter
--- OUTSIDE RECORDS SUMMARY | 2022-05-24 10:44 | XMS_ITS | Encounter Summary ---
:1955 Author Organization [facility] Address [address] [place] [address] Care Team Providers Name Role Phone Violetta Sanford MD Primary Care Provider Encounter Details Date Type Department Care Team Description 06/24/2021 Lab Requisition [facility] Outr Resulting Lab, Pathology & Laboratory Provider [facility] [address] [place], [place] [id number] Social History Tobacco Use Types Packs/Day Years [...] Associated Diagnosis Comme nts TACROLIMUS (FK506) Routine 06/24/2021 12:50 Resul ts for this EST procedure are i n the results section. documented in this encounter Results TACROLIMUS (FK506) (06/24/2021 12:50 EST) Tacrolimus 2.4 See Note [facility] Comment: ng/mL LABORATORY NOTE: SERVICES Therapeutic range is dependent on the clinical situati on. Assayed utilizing xzoops miluminescent technology. ??Values obtained using different assay methods cannot be used interchangeably. Specimen Blood - Venous blood (substance) Performing Organization Address City/State/ZIP Code Phon e Number [facility] [address] [place] [address] SERVICES documented in this encounter Visit Diagnoses Not on filedocumented in this encounter Care Teams Exceptional Student Education Aide Relationship Specialty Start Date End Date Violetta Sanford MD PCP - General 04/06/[address] [place] [phone] documented as of this encounter
--- OUTSIDE RECORDS SUMMARY | 2022-05-24 10:44 | XMS_ITS | Encounter Summary ---
:1955 Author Organization [facility] Address [address] [place] [address] Care Team Providers Name Role Phone Violetta Sanford MD Primary Care Provider Encounter Details Date Type Department Care Team Description 12/16/2021 Lab Requisition [facility] Outr Resulting Lab, Pathology & Laboratory Provider [facility] [address] [place] [address] Social History Tobacco Use Types Packs/Day Years [...] Associated Diagnosis Comme nts TACROLIMUS (FK506) Routine 12/16/2021 11:18 Resul ts for this EDT procedure are i n the results section. documented in this encounter Results TACROLIMUS (FK506) (12/16/2021 11:18 EDT) Tacrolimus 2.7 See Note [facility] Comment: ng/mL LABORATORY NOTE: SERVICES Tacrolimus Therapeutic Range : 3-12 ng/mL (The goal level is based on clinical context). Assayed utilizing TurtleCell miluminescent technology. ??Values obtained using different assay methods cannot be used interchangeably. Specimen Blood - Venous blood (substance) Performing Organization Address City/State/[facility] Code Phon e Number [facility] [address] [place] [address] SERVICES documented in this encounter Visit Diagnoses Not on filedocumented in this encounter Care Teams New Accounts Clerk Relationship Specialty Start Date End Date Violetta Sanford MD PCP - General 04/06/[address] [place] [address] [phone] documented as of this encounter
--- OUTSIDE RECORDS SUMMARY | 2022-05-24 10:44 | XMS_ITS | Encounter Summary ---
:1955 Author Organization [facility] Address [address] [place] [address] Care Team Providers Name Role Phone Violetta Sanford MD Primary Care Provider Encounter Details Date Type Department Care Team Description 11/07/2020 Lab Requisition [facility] for other Pathology & M, DO general examination Laboratory Medicine - [address] [place] [phone] Social History Tobacco Use Types Packs/Day Years [...] Name Priority Date/Time Associated Diagnosis Comme nts SURGICAL PATHOLOGY Today 11/07/2020 11:25 Encounter for othe r Results for this EDT general examination procedur e are in the results section. documented in this encounter Results SURGICAL PATHOLOGY (11/07/2020 11:25 EDT) Final Diagnosis A. COLON, 60 CMS, POLYP, BIOPSY: [facility] - Tubular adenoma. CENTER LABORATORY B. COLON, 50 CMS, POLYPS X3, BIOPSY: SERV ICES - No tissue identified in specimen jar. Attestation By the signature [facility] Electronica lly below, the attending CENTER signed by Heather Gutierrez, physician certifies LABORATORY Abdiaziz Oneal MD on that they have 1) SERVICES 11/11/2020 at 0955 personally conducted a gross and/or microscopic examination of the described specimen(s), and/or personally interpreted the results of laboratory testing of the described specimen(s), and 2) personally rendered or confirmed the above diagnosis. Clinical History Hx colon polyps [facility] SERVICES Gross Description A. [facility] Received in formalin tonya d with proper patient identification (initials R, R) and colon polyp @ 60 cm are two aiken tissues (0.4 x 0.3 x 0.2 cm and 0.3 x 0.2 x 0.2 cm). Entirely submitted in A1. CENTER LABORATORY B. SERVICES Received in formalin tonya d with proper patient identification (initials R, R) and colon polyp @ 50 cm x 3 is a specimen container with no tissue identified. Verified per DA Calvillo 11/10/2020. There are no blocks submitted for part B. Dr. Brie Lux's office is notified 08:57 1 Ra Mathis 11/10/2020 8:58 Performing Lab [facility] Scanned Images [facility] SERVICES Specimen Tissue - Entire colon (body structure) Tissue specimen (specimen) - Entire colo n (body structure) Performing Organization Address City/State/ZIP Code Phon e Number [facility] [address] [place] [address] SERVICES documented in this encounter Visit Diagnoses Diagnosis Encounter for other general examination documented in this encounter Care Teams Tow Truck Operator Relationship Specialty Start Date End Date Violetta Sanford MD PCP - General 04/06/[address] [phone] documented as of this encounter
--- OUTSIDE RECORDS SUMMARY | 2022-05-24 10:44 | XMS_ITS | Encounter Summary ---
:1955 Author Organization [facility] Address [address] [place] [address] Care Team Providers Name Role Phone Violetta Sanford MD Primary Care Provider Encounter Details Date Type Department Care Team Description 01/12/2022 Lab Requisition [facility] Outr Resulting Lab, Pathology & Laboratory Provider [facility] [address] [place], [place] [id number] Social History Tobacco Use Types Packs/Day Years [...] Associated Diagnosis Comme nts TACROLIMUS (FK506) Routine 01/12/2022 11:38 Resul ts for this EDT procedure are i n the results section. documented in this encounter Results TACROLIMUS (FK506) (01/12/2022 11:38 EDT) Tacrolimus 3.4 See Note [facility] Comment: ng/mL LABORATORY NOTE: SERVICES Tacrolimus Therapeutic Range : 3-12 ng/mL (The goal level is based on clinical context). Assayed utilizing To8to miluminescent technology. ??Values obtained using different assay methods cannot be used interchangeably. Specimen Blood - Venous blood (substance) Performing Organization Address City/State/[facility] Code Phon e Number [facility] [address] [place] [address] SERVICES documented in this encounter Visit Diagnoses Not on filedocumented in this encounter Care Teams Radioactive Waste Disposal Dispatcher Relationship Specialty Start Date End Date Violetta Sanford MD PCP - General 04/06/[address] [place] [address] [phone] documented as of this encounter
--- OUTSIDE RECORDS SUMMARY | 2022-05-24 10:44 | XMS_ITS | Encounter Summary ---
:1955 Author Organization [facility] Address [address] [place] [address] Care Team Providers Name Role Phone Violetta Sanford MD Primary Care Provider Encounter Details Date Type Department Care Team Description 05/06/2021 Lab Requisition [facility] Outr Resulting Lab, Pathology & Laboratory Provider [facility] [address] [place], [place] [phone] Social History Tobacco Use Types Packs/Day Years [...] Associated Diagnosis Comme nts TACROLIMUS (FK506) Routine 05/06/2021 13:10 Resul ts for this EDT procedure are i n the results section. documented in this encounter Results TACROLIMUS (FK506) (05/06/2021 13:10 EDT) Tacrolimus 3.6 See Note [facility] Comment: ng/mL LABORATORY NOTE: SERVICES Therapeutic range is dependent on the clinical situati on. Assayed utilizing [employer] miluminescent technology. ??Values obtained using different assay methods cannot be used interchangeably. Specimen Blood - Venous blood (substance) Performing Organization Address City/State/ZIP Code Phon e Number [facility] [address] [place] [address] SERVICES documented in this encounter Visit Diagnoses Not on filedocumented in this encounter Care Teams Photoengraving Printer Relationship Specialty Start Date End Date Violetta Sanford MD PCP - General 04/06/[address] [place] [address] [phone] documented as of this encounter
--- OUTSIDE RECORDS SUMMARY | 2022-05-24 10:44 | XMS_ITS | Encounter Summary ---
:1955 Author Organization [facility] Address [address] [place] [address] Care Team Providers Name Role Phone Violetta Sanford MD Primary Care Provider Encounter Details Date Type Department Care Team Description 08/13/2019 Lab Requisition [facility] Unknown, Provider, Pathology & Laboratory [facility] [address] [place] [address] Social History Tobacco Use Types Packs/Day Years [...] Associated Diagnosis Comme nts TACROLIMUS (FK506) Routine 08/13/2019 11:05 Resul ts for this EST procedure are i n the results section. documented in this encounter Results TACROLIMUS (FK506) (08/13/2019 11:05 EST) Tacrolimus 4.3 See Note [facility] Comment: ng/mL LABORATORY SERVICES NOTE: Therapeutic range is dependent on the clinical situati on. Assayed utilizing [employer] miluminescent technology. ??Values obtained using different assay methods cannot be used interchangeably. Specimen Blood - Venous blood (substance) Performing Organization Address City/State/[facility] Code Phon e Number [facility] [address] [place] [address] SERVICES documented in this encounter Visit Diagnoses Not on filedocumented in this encounter Care Teams Baker Pie Relationship Specialty Start Date End Date Violetta Sanford MD PCP - General 04/06/[address] [place] [place] [address] [phone] documented as of this encounter
--- OUTSIDE RECORDS SUMMARY | 2022-05-24 10:44 | XMS_ITS | Encounter Summary ---
:1955 Author Organization [facility] Address [address] [place] [address] Care Team Providers Name Role Phone Violetta Sanford MD Primary Care Provider Encounter Details Date Type Department Care Team Description 05/19/2022 Lab Requisition [facility] Outr Resulting Lab, Pathology & Laboratory Provider [facility] [address], [place] [id number] Social History Tobacco Use Types Packs/Day Years [...] Associated Diagnosis Comme nts TACROLIMUS (FK506) Routine 05/19/2022 12:40 Resul ts for this EDT procedure are i n the results section. documented in this encounter Results TACROLIMUS (FK506) (05/19/2022 12:40 EDT) Tacrolimus 5.3 See Note [facility] Comment: ng/mL LABORATORY NOTE: SERVICES Tacrolimus Therapeutic Range : 3-12 ng/mL (The goal level is based on clinical context). Assayed utilizing [employer] miluminescent technology. ??Values obtained using different assay methods cannot be used interchangeably. Specimen Blood - Venous blood (substance) Performing Organization Address City/State/[facility] Code Phon e Number [facility] [address] [place] [address] SERVICES documented in this encounter Visit Diagnoses Not on filedocumented in this encounter Care Teams Coil Strapper Relationship Specialty Start Date End Date Violetta Sanford MD PCP - General 04/06/[address] [place] [address] [phone] documented as of this encounter
--- OUTSIDE RECORDS SUMMARY | 2022-05-24 10:44 | XMS_ITS | Encounter Summary ---
:1955 Author Organization [facility] Address [address] [place] [address] Care Team Providers Name Role Phone Violetta Devi MD Primary Care Provider Encounter Details Date Type Department Care Team Description 02/01/2017 Results Only [facility] Ev Perkins, DO [address] [facility] [address] [place] [address] (Wo rk) Social History Tobacco Use Types Packs/Day Years Used Date Never Assessed Sex Assigned at Date Recorded Not on file documented as of this encounter Plan of Treatment Not on filedocumented as of this encounter Procedures Procedure Name Priority Date/Time Associated Diagnosis Comme [facility] SURGICAL PATHOLOGY Routine 02/01/2017 9:28 EDT Re sults for this procedure are i n the results section. documented in this encounter Results SURGICAL PATHOLOGY (02/01/2017 9:28 EDT) Pathology Report: SURGICAL PATHOLOGY REPORT [facility] Reports generated via electronic interface contain lee ginal data; LABORATORY however they are lacking the format of the original re port. SERVICES Caution should be taken when reading/interpreting unfo rmatted reports. Name: ? BRETT TORRES ? Accession #: ? [id number] ? : ? 1955 (Age: 61) ??M ? Collect Date: ? 02/01/2017 ? Location: ? [facility] ? Receive Date: ? 02/03/20 17 ? Provider: EV PERKINS DO Copy to: VIOLETTA DEVI MD ? Final Pathologic Diagnosis: A. COLON, TRANSVERSE, POLYP, BIOPSY: - ??Hyperplastic polyp. - ??Deep sections have been reviewed. B. COLON, DESCENDING AND SIGMOID, POLYPS, BIOPSY: - ??Fragments of tubular adenomas. C. COLON, SIGMOID, POLYP, BIOPSY: - ??Tubular adenoma. D. RECTAL, POLYP, BIOPSY: - ??Fragments of tubular adenoma. Document reviewed and electronically signed by: FABIOLA IRELAND MD Report ??Date: 02/03/2017 17:46 By the signature above, the attending physician certif ies that he/she has personally conducted a gross and/or microscopic examin ation of the described specimens and rendered or confirmed the above diagnosi s. Specimen(s) Received: A. ??Polyp transverse colon B. ??Descending sigmoid polyps (2) C. ??Sigmoid polyp D. ??Rectal polyp Clinical History: Screening for colon Ca Gross Description: A. ?Received in formalin labelled with proper p atient identification (initials R, R) and 1. polyp transverse colon is a single pale yellow tissue fragment (0.3 x 0.1 x 0.1 cm). Submitted intact in A1. B. ?Received in formalin labelled with proper p atient identification (initials R, R) and 2. descending sigmoid polyp are three light aiken tissues (0.2 x 0.1 x 0.1 cm, 0.3 x 0.2 x 0.1 cm and 0.4 x 0.2 x 0.1 cm). Entirely submitted in B1. C. ?Received in formalin labelled with proper p atient identification (initials R, R) and 3. sigmoid polyp is a single whi te-aiken tissue fragment (0.4 x 0.3 x 0.2 cm). Submitted intact in C1. D. ?Received in formalin labelled with proper p atient identification (initials R, R) and 4. rectal polyp ar e three white-aiken tissues (0.1 x 0.1 x 0.1 cm, 0.2 x 0.1 x 0.1 cm and 0.3 x 0.1 x 0.1 c m). Entirely submitted in D1. Marcelina White 02/02/2017 10:20 AM End of Report Specimen Performing Organization Address City/State/ZIP Code Phon e Number [facility] [address] [place] [address] SERVICES documented in this encounter Visit Diagnoses Not on filedocumented in this encounter Care Teams Phlebotomist Lab Assistant Relationship Specialty Start Date End Date Violetta Devi MD PCP - General 04/06/[address] [place] [phone] documented as of this encounter
--- OUTSIDE RECORDS SUMMARY | 2022-05-24 10:44 | XMS_ITS | Encounter Summary ---
:1955 Author Organization [facility] Address [address] [place] [address] Care Team Providers Name Role Phone Violetta Sanford MD Primary Care Provider Encounter Details Date Type Department Care Team Description 07/30/2019 Lab Requisition [facility] Unknown, Provider, Pathology & Laboratory [facility] [address] [place] [address] Social History Tobacco Use Types Packs/Day Years [...] Associated Diagnosis Comme nts TACROLIMUS (FK506) Routine 07/30/2019 11:14 Resul ts for this EST procedure are i n the results section. documented in this encounter Results TACROLIMUS (FK506) (07/30/2019 11:14 EST) Tacrolimus 4.1 See Note [facility] Comment: ng/mL LABORATORY SERVICES NOTE: Therapeutic range is dependent on the clinical situati on. Assayed utilizing [employer] miluminescent technology. ??Values obtained using different assay methods cannot be used interchangeably. Specimen Blood - Venous blood (substance) Performing Organization Address City/State/[facility] Code Phon e Number [facility] [address] [place] [address] SERVICES documented in this encounter Visit Diagnoses Not on filedocumented in this encounter Care Teams Shift Supervisor Relationship Specialty Start Date End Date Violetta Sanford MD PCP - General 04/06/[address] [place] [address] [phone] documented as of this encounter
--- OUTSIDE RECORDS SUMMARY | 2022-05-24 10:44 | XMS_ITS | Encounter Summary ---
:1955 Author Organization [facility] Address [address] [place] [address] Care Team Providers Name Role Phone Violetta Sanford MD Primary Care Provider Encounter Details Date Type Department Care Team Description 07/16/2019 Lab Requisition [facility] Unknown, Provider, Pathology & Laboratory [facility] [address] [facility] [place] [address] Social History Tobacco Use Types Packs/Day Years [...] Associated Diagnosis Comme nts TACROLIMUS (FK506) Routine 07/16/2019 10:44 Resul ts for this EST procedure are i n the results section. documented in this encounter Results TACROLIMUS (FK506) (07/16/2019 10:44 EST) Tacrolimus 6.5 See Note [facility] Comment: ng/mL LABORATORY SERVICES NOTE: Therapeutic range is dependent on the clinical situati on. Assayed utilizing [employer] miluminescent technology. ??Values obtained using different assay methods cannot be used interchangeably. Specimen Blood - Venous blood (substance) Performing Organization Address City/State/[facility] Code Phon e Number [facility] [address] [place] [address] SERVICES documented in this encounter Visit Diagnoses Not on filedocumented in this encounter Care Teams Content Editor Relationship Specialty Start Date End Date Violetta Sanford MD PCP - General 04/06/[address] [place] [address] [phone] documented as of this encounter
--- OUTSIDE RECORDS SUMMARY | 2022-05-24 10:44 | XMS_ITS | Encounter Summary ---
:1955 Author Organization [facility] Address [address] [place] [address] Care Team Providers Name Role Phone Violetta Sanford MD Primary Care Provider Encounter Details Date Type Department Care Team Description 07/09/2019 Lab Requisition [facility] Unknown, Provider, Pathology & Laboratory [facility] [address] [facility] [place] [address] Social History Tobacco Use Types Packs/Day Years [...] Associated Diagnosis Comme nts TACROLIMUS (FK506) Routine 07/09/2019 11:26 Resul ts for this EST procedure are i n the results section. documented in this encounter Results TACROLIMUS (FK506) (07/09/2019 11:26 EST) Tacrolimus 5.2 See Note [facility] Comment: ng/mL LABORATORY SERVICES NOTE: Therapeutic range is dependent on the clinical situati on. Assayed utilizing [email or web address] miluminescent technology. ??Values obtained using different assay methods cannot be used interchangeably. Specimen Blood - Venous blood (substance) Performing Organization Address City/State/[facility] Code Phon e Number [facility] [address] [place] [address] SERVICES documented in this encounter Visit Diagnoses Not on filedocumented in this encounter Care Teams Garbage Pick Up Man Relationship Specialty Start Date End Date Violetta Sanford MD PCP - General 04/06/[address] [place] [address] [phone] documented as of this encounter
--- OUTSIDE RECORDS SUMMARY | 2022-05-24 10:44 | XMS_ITS | Encounter Summary ---
:1955 Author Organization [facility] Address [address] [place] [address] Care Team Providers Name Role Phone Violetta Sanford MD Primary Care Provider Encounter Details Date Type Department Care Team Description 12/15/2020 Lab Requisition [facility] Outr Resulting Lab, Pathology & Laboratory Provider [facility] [address] [place], [place] [id number] Social History Tobacco Use Types Packs/Day Years [...] Associated Diagnosis Comme nts TACROLIMUS (FK506) Routine 12/15/2020 11:26 Resul ts for this EDT procedure are i n the results section. documented in this encounter Results TACROLIMUS (FK506) (12/15/2020 11:26 EDT) Tacrolimus 4.6 See Note [facility] Comment: ng/mL LABORATORY NOTE: SERVICES Therapeutic range is dependent on the clinical situati on. Assayed utilizing [employer] miluminescent technology. ??Values obtained using different assay methods cannot be used interchangeably. Specimen Blood - Venous blood (substance) Performing Organization Address City/State/[facility] Code Phon e Number [facility] [address] [place] [address] SERVICES documented in this encounter Visit Diagnoses Not on filedocumented in this encounter Care Teams Tele Grout Sewer Line Repairer Relationship Specialty Start Date End Date Violetta Sanford MD PCP - General 04/06/[address] [place] [address] [phone] documented as of this encounter
--- OUTSIDE RECORDS SUMMARY | 2022-05-24 10:44 | XMS_ITS | Encounter Summary ---
:1955 Author Organization [facility] Address [address] [place] [address] Care Team Providers Name Role Phone Violetta Sanford MD Primary Care Provider Encounter Details Date Type Department Care Team Description 04/17/2020 Lab Requisition [facility] Outr Resulting Lab, Pathology & Laboratory Provider [facility] [address] [place], [place] [id number] Social History Tobacco Use Types Packs/Day Years [...] encounter Procedures Procedure Name Priority Date/Time Associated Comments Diagnosis HOLD SST Today 04/17/2020 11:45 Results for this EDT procedure are i n the results section. HOLD SST Today 04/17/2020 11:45 Results for this EDT procedure are i n the results section. CCP ANTIBODIES Today 04/17/2020 11:45 Results f or this EDT procedure are i n the results section. ANTI NUCLEAR AB Today 04/17/2020 11:45 Results for this (RAMONA), IFA EDT procedure are i n the results section. PSA TOTAL, Today 04/17/2020 11:45 Results for this DIAGNOSTIC EDT procedure are i n the results section. documented in this encounter Results HOLD SST (04/17/2020 11:45 EDT) Pathologist Sig nature Hold Hold [facility] LABORATOR Y SERVICES Specimen Blood - Venous blood (substance) Performing Organization Address City/[facility]/ZIP Code Phon e Number [facility] [address] [place] [address] SERVICES HOLD SST (04/17/2020 11:45 EDT) Pathologist Sig nature Hold Hold [facility] LABORATOR Y SERVICES Specimen Blood - Venous blood (substance) Performing Organization Address City/[facility]/ZIP Code Phon e Number [facility] [address] [place] [address] SERVICES PSA TOTAL, DIAGNOSTIC (04/17/2020 11:45 EDT) Pathologist Sig nature PSA 2.3 0.0 - 4.5 ng/mL [facility] LABORA TORY SERVICES Specimen Blood - Venous blood (substance) Narrative [facility] LABORATORY SERVICES - 04/18/2020 22:12 EDT NOTE: Serum PSA concentration should not be in terpreted as absolute evidence for the presence or absence of malignant disease. Assayed on [employer]aur XPT usi ng chemiluminescent technology.??Values obtained by using different assay methods cannot be used interchangeably. Performing Organization Address City/State/ZIP Code Phon e Number [facility] [address] [place] [address] SERVICES (ABNORMAL) ANTI NUCLEAR AB (RAMONA), IFA (04/17/2020 11:45 EDT) RAMONA Interpretation Positive (A) Negative [facility] Comment: CENTER LABORATORY For titers greater than or e qual to 1:160 (except the centromere and nucleolar patterns) it is recommended that specific follow-up autoantibody testing ??(such as for dsDNA and Extractable Nuclear Antig SERVICES ens) be performed on all diffuse and/or speckled patterns NOTE: For add-on testing dsD NA is stable for 7 days refrigerated while Extractable Nuclear Antigens are only stable for 48 hours refrigerated. RAMONA Titer and Pattern 1:[address] LABORATORY SERVICES Specimen Blood - Venous blood (substance) Narrative [facility] LABORATORY SERVICES - 04/21/2020 15:03 EDT Results were obtained with the [employer]OVA NOV A Lite HEp-2 RAMONA Kit by indirect immunofluorescence. Performing Organization Address City/State/ZIP Code Phon e Number [facility] [address] [place] [address] SERVICES CCP ANTIBODIES (04/17/2020 11:45 EDT) Pathologist Sig nature CCP Antibodies <2.5 <5.0 U/mL [facility] LABORAT ORY SERVICES Specimen Blood - Venous blood (substance) Performing Organization Address City/State/ZIP Code Phon e Number [facility] [address] [place] [address] SERVICES documented in this encounter Visit Diagnoses Not on filedocumented in this encounter Care Teams Final Expense Agent Relationship Specialty Start Date End Date Violetta Sanford MD PCP - General 04/06/[address] [place] [phone] documented as of this encounter
--- OUTSIDE RECORDS SUMMARY | 2022-05-24 10:44 | XMS_ITS | Clinical Summary ---
:1955 Author Organization [facility] Address [address] [place] [address] Care Team Providers Name Role Phone Violetta Sanford MD Primary Care Provider Allergies Active Allergy Reactions Severity Noted Date Comments Iftikhar Inhibitors 11/15/2018 Skin rash Sulfamethoxazole-Trimethoprim Low 11/15/2018 Cat Dander 11/15/2018 wheezing Clindamycin Rash 11/15/2018 Ibuprofen 11/15/2018 Levofloxacin Low 11/15/2018 Lisinopril 11/15/2018 kidney failure Penicillins 11/15/2018 Tree Nut 11/15/2018 Medications Medication Sig Dispensed Refills Start Date End Date Status mycophenolate Take 500 mg by 0 A ctive (CELLCEPT) 250 mg mouth 2 times capsule daily. folic acid (FOLVITE) 1 Take 1 mg by 0 Active mg tablet mouth daily. insulin lispro Inject into the 0 Active (HUMALOG) 100 unit/mL skin 3 times vial daily before meals. liraglutide (VICTOZA Inject 0.6 mg 0 Active 2-FAZAL) 0.6 mg/0.1 mL into the skin (18 mg/3 mL) injectable daily. pen glucagon 1 mg recon Inject 1 mg into 0 Active soln injection the muscle as needed. aspirin 81 mg EC tablet Take 81 mg by 0 Active mouth daily. omeprazole (PRILOSEC) Take 40 mg by 0 Active 20 mg capsule mouth daily. montelukast (SINGULAIR) Take 10 mg by 0 Active 10 mg tablet mouth daily. Multivitamins with Take 1 tablet by 0 Active Minerals tablet tablet mouth daily. gabapentin (NEURONTIN) Take 900 mg by 0 Active 300 mg capsule mouth 3 times daily. cholecalciferol, Take 2,000 Units 0 Active Vitamin D3, 1,000 unit by mouth daily. tablet fluticasone propionate Instill 100 mcg 0 Active (FLONASE) 50 into both mcg/actuation nasal nostrils 2 times spray daily. albuterol 90 Inhale 2 puffs as 0 Active mcg/actuation inhaler directed every 6 hours as needed for Wheezing. tiotropium-olodaterol Inhale as 0 Active (STIOLTO RESPIMAT) directed. 2.5-2.5 mcg/actuation inhaler insulin detemir U-100 Inject 80 Units 0 Active (LEVEMIR) 100 unit/mL into the skin at injection bedtime. insulin detemir U-100 Inject 50 Units 0 Active (LEVEMIR) 100 unit/mL into the skin injection every morning. atorvastatin (LIPITOR) Take 20 mg by 0 Active 10 mg tablet mouth daily. tacrolimus (PROGRAF) Take 0.5 mg by 0 Active 0.5 mg capsule mouth. Take 2 capsules (1mg) in am and 1 capsule (0.5mg) in PM doxycycline Take 1 tablet by 7 tablet 0 11/17/2018 Active (VIBRA-TABS) 100 mg mouth every 12 tablet hours. Take one tonight 11/17 Active Problems Problem Noted Date Community acquired pneumonia of left lower lobe of john g 11/17/2018 Acute kidney injury ([facility]) 11/17/2018 Elevated random blood glucose level 11/15/2018 Renal transplant, status post 11/15/2018 Encounters Date Type Specialty Care Team Description 05/19/2022 Lab Requisition Clinical Laboratory Outr Resulting Lab , Provider 04/21/2022 Lab Requisition Clinical Laboratory Outr Resulting Lab , Provider 02/24/2022 Lab Requisition Clinical Laboratory Outr Resulting Lab , Provider 02/24/2022 Lab Requisition Clinical Laboratory Outr Resulting Lab , Provider from Last 3 Months Surgical History Surgery Date Site/Laterality Comments LEG AMPUTATION BELOW KNEE Bilateral APPENDECTOMY KIDNEY TRANSPLANT 02/29/2008 Left DIALYSIS FISTULA CREATION Left Medical History Medical History Date Comments COPD (chronic obstructive pulmonary disease) ([facility]) ([facility]) S/p cadaver renal transplant Insulin dependent diabetes mellitus Essential tremor Social History Tobacco Use Types Packs/Day Years Used Date Former Smoker Smokeless Tobacco: Never Used Sex Assigned at Date Recorded Not on file Last Filed Vital Signs Vital Sign Reading Time Taken Comments Blood Pressure 147/68 11/17/2018 1233 EDT Pulse 62 11/17/2018 0136 EDT Temperature 36.6 ??C (97.9 ??F) 11/17/2018 1233 EDT Respiratory Rate 20 11/17/2018 1233 EDT Oxygen Saturation 97% 11/17/2018 1233 EDT Inhaled Oxygen - - Concentration Weight 143.4 kg (316 lb 2.2 11/17/2018 0528 oz) EDT Height 162.6 cm (5' 4) 11/16/2018 1300 74inches with EDT prosthesis Body Mass Index 54.27 11/16/2018 1300 EDT Plan of Treatment Health Maintenance Due Date Last Done Comments Hepatitis C Screen 1955 COVID-19 Vaccine (#1) 1955 Fall Risk Screening 2018 Procedures Procedure Name Priority Date/Time Associated Comments Diagnosis TACROLIMUS (FK506) Routine 05/19/2022 12:40 Resul ts for this EDT procedure are i n the results section. TACROLIMUS (FK506) Routine 04/21/2022 10:45 Resul ts for this EDT procedure are i n the results section. CALCIUM, URINE Routine 02/24/2022 11:00 Results f or this RANDOM EDT procedure are i n the results section. MAGNESIUM,URINE Routine 02/24/2022 11:00 Results for this RANDOM EDT procedure are i n the results section. PHOSPHOROUS, URINE Routine 02/24/2022 11:00 Resul ts for this RANDOM EDT procedure are i n the results section. PTH INTACT Routine 02/24/2022 11:00 Results for this EDT procedure are i n the results section. TACROLIMUS (FK506) Routine 02/24/2022 11:00 Resul ts for this EDT procedure are i n the results section. from Last 3 Months Results TACROLIMUS (FK506) (05/19/2022 12:40 EDT)Only the most recent of3 resultswithin the time period is included. Tacrolimus 5.3 See Note [facility] Comment: ng/mL LABORATORY NOTE: SERVICES Tacrolimus Therapeutic Range : 3-12 ng/mL (The goal level is based on clinical context). Assayed utilizing [employer] miluminescent technology. ??Values obtained using different assay methods cannot be used interchangeably. Specimen Blood - Venous blood (substance) Performing Organization Address City/State/ZIP Code Phon e Number [facility] [address] [place] [address] SERVICES (ABNORMAL) PTH INTACT (02/24/2022 11:00 EDT) Pathologist Sig nature Intact PTH 162 (H) 19 - 88 pg/mL [facility] RY SERVICES Specimen Blood - Venous blood (substance) Performing Organization Address [facility] Phon e Number [facility] [address] [place] [address] SERVICES PHOSPHORUS, URINE RANDOM (02/24/2022 11:00 EDT) Phosphorous, 49.3 See Note [facility] Urine Comment: mg/dL CENTER LABORATORY NOTE: SERVICES Reference range has not been established for phosporous concentration in random urine specimens. Specimen Urine - Urine specimen collection, clean catch (procedure) Performing Organization Address [facility] Phon e Number [facility] [address] [place] [address] SERVICES MAGNESIUM,URINE RANDOM (02/24/2022 11:00 EDT) Magnesium, Urine 2.9 See Note [facility] Comment: mg/dL CENTER LABORATORY NOTE: SERVICES Reference range has not been established for magnesium concentration in random urine specimens. Specimen Urine - Urine specimen collection, clean catch (procedure) Performing Organization Address [facility] Phon e Number [facility] [address] [place] [address] SERVICES CALCIUM, URINE RANDOM (02/24/2022 11:00 EDT) Calcium, Urine <1.0 See Note [facility] Comment: mg/dL LABORATORY NOTE: SERVICES Reference range has not been established for calcium concentration in random urine specimens. Specimen Urine - Urine specimen collection, clean catch (procedure) Performing Organization Address [facility] Phon e Number [facility] [address] [place] [address] SERVICES from Last 3 Months Insurance Payer Benefit Plan Subscriber ID Effective Phone Address Typ e / Group Dates [employer] [id number] 2020-Prese [id number] [place] [address] MEDICARE MEDICARE A/B [id number] 2002-Prese [address] Medicare nt [address] [facility] [place] [address] Leroy Torres Personal/Family Self 1955 [address] [facility] (Home) [place] [phone] Leroy Torres Personal/Family Self 1955 [address] [facility] (Home) [place] [phone] Leroy Torres Personal/Family Self 1955 [address] [facility] (Home) [place] [phone] Leroy Torres Personal/Family Self 1955 [address] [facility] (Home) [place] [address] Advance Directives For more information, please contact: [phone] Documents on File Type Date Recorded Patient Meat Clerk Explanati on Advance Directive 11/21/2018 13:04 [place] Advance Dir ective for Health Care [facility] ed 2016-08-10 Latest Code Status on File Code Status Date Activated Date Inactivated Comments Limitation of Treatment 11/15/2018 17:25 11/17/2018 16:23 New disc ussion. No written documentation. N ot discussed with family. CPR for spontaneous arrest: Withhold CPR for arrest during procedure: Withhold Intubation/Mechanical ventilation: Provide Medications for arrhythmia: Provide Reason for Decision Includes: 1-Fully informed patient belie ves the expected burdens of treatment are greater Who Participated in the Discussion? Patient The Goals of Further Therapy are: 1-Life Prolongation with M aximal Treatment Full Code 11/15/2018 16:16 11/15/2018 17:25 Reason for decision includes: Full code consistent with over all plan of care Who participated in the discussion? Not Discussed Care Teams Weatherstrip Machine Operator Relationship Specialty Start Date End Date Violetta Sanford MD PCP - General 04/06/16 [facility] [address] [phone] (work)
--- OUTSIDE RECORDS SUMMARY | 2022-05-24 10:44 | XMS_ITS | Encounter Summary ---
:1955 Author Organization [facility] Address [address] [place] [address] Care Team Providers Name Role Phone Violetta Sanford MD Primary Care Provider Encounter Details Date Type Department Care Team Description 04/21/2022 Lab Requisition [facility] Outr Resulting Lab, Pathology & Laboratory Provider [facility] [address], [place] [id number] Social History Tobacco Use Types Packs/Day Years [...] Associated Diagnosis Comme nts TACROLIMUS (FK506) Routine 04/21/2022 10:45 Resul ts for this EDT procedure are i n the results section. documented in this encounter Results TACROLIMUS (FK506) (04/21/2022 10:45 EDT) Tacrolimus 2.1 See Note [facility] Comment: ng/mL LABORATORY NOTE: SERVICES Tacrolimus Therapeutic Range : 3-12 ng/mL (The goal level is based on clinical context). Assayed utilizing [employer]io miluminescent technology. ??Values obtained using different assay methods cannot be used interchangeably. Specimen Blood - Venous blood (substance) Performing Organization Address City/State/[facility] Code Phon e Number [facility] [address] [place] [address] SERVICES documented in this encounter Visit Diagnoses Not on filedocumented in this encounter Care Teams Children'S Tutor Nursery Relationship Specialty Start Date End Date Violetta Sanford MD PCP - General 04/06/[address] [place] [phone] documented as of this encounter
--- OUTSIDE RECORDS SUMMARY | 2022-05-24 10:44 | XMS_ITS | Encounter Summary ---
:1955 Author Organization [facility] Address [address] [place] [address] Care Team Providers Name Role Phone Suhas Ramirez MD Primary Care Provider Unavailable Encounter Details Date Type Department Care Team Description 04/30/2010 Results Only [facility] Juan Jose Chiu, [address] [place], [place] [id number] (Wo rk) Social History Tobacco Use Types Packs/Day Years Used Date Never Assessed Sex Assigned at Date Recorded Not on file documented as of this encounter Plan of Treatment Not on filedocumented as of this encounter Procedures Procedure Name Priority Date/Time Associated Diagnosis Comme [facility] SURGICAL PATHOLOGY Routine 04/30/2010 0:00 EDT Re sults for this procedure are i n the results section. documented in this encounter Results SURGICAL PATHOLOGY (04/30/2010 0:00 EDT) Pathology Report: SURGICAL PATHOLOGY REPORT ? [facility] Reports generated via [employer] interface contain original data; ? LAB however they are lacking the format of the original report. ? Caution should be taken when reading/interpreting unformatted reports. ? Name: ? ASIM BRETT Sania ? Accession #: ? [id number] ? : ? 1955 (Age: 54) ??M ? Collec t Date: ? 04/30/2010 ? Location: ? [facility] ? Re ceive Date: ? 05/01/2010 ? Provider: JUAN JOSE M MALDONADOZPATR ICK DO ? Copy to: SUHAS RAMIREZ MD ? Final Pathologic Diagnosis: ? A. ?Paranasal s inus, ethmoid, right, curettage: ? 1. ?Fragments o f inflammatory polyps. ? 2. ? Sinus tissue with a cute and chronic inflammation and bone. ? 3. ? Gomori methenamine silver stain negative for fungi. ? B. ?Paranasal s inus, maxillary, left, curettage: ? 1. ?Sinus tissu e with acute and chronic inflammation. ? 2. ? Gomori methenamine silver stain negative for fungi. ? C. ?Paranasal s inus, frontal recess, left, biopsy: ? 1. ?Fragments o f inflammatory polyps. ? 2. ? Sinus tissue with a cute and chronic inflammation and bone. ? 3. ? Gomori methenamine silver stain negative for fungi (C1). ? D. ?Paranasal s inus, sphenoid, left, curettage: ? 1. ?Fragments o f inflammatory polyps. ? 2. ? Sinus tissue with a cute and chronic inflammation and bone. ? 3. ? Gomori methenamine silver stain negative for fungi. ? E. ?Paranasal s inus, ethmoid, left, curettage: ? 1. ?Sinus tissu e with acute and chronic inflammation and bone. ? 2. ? Gomori methenamine silver stain negative for fungi. ? F. ?Paranasal s inus, sphenoid, right, curettage: ? 1. ?Fragments o f inflammatory polyps. ? 2. ? Sinus tissue with a cute and chronic inflammation. ? 3. ? Gomori methenamine silver stain negative for fungi. ? G. ?Paranasal s inus, frontal recess, right, biopsy: ? 1. ?Fragments o f inflammatory polyps. ??See comment. ? 2. ? Sinus tissue with a cute and chronic inflammation. ? 3. ? Gomori methenamine silver stain negative for fungi. ? H. ?Paranasal s inuses, maxillary and uncinate, right, curettage: ? 1. ?Sinus tissu e with chronic and focal acute inflammation. ? 2. ? Gomori methenamine silver stain negative for fungi. ? I. ?Nasal septu m, cartilage, resection: ? 1. ?Cartilage, bone, and sinonasal tissue with mild chronic ? inflammation. ? Comment: ? 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 consultation conference. (Dr Jeffery Martníez)/[facility] ? Document reviewed and electr onically signed by: ? EVAN MARTÍNEZ MD ? Report ??Date: 05/05/2010 16 :47 ? By the signature above, the attending physician certifies that he/she has ? personally conducted a gross and/or microscopic examination of the described ? specimens and rendered or co nfirmed the above diagnosis. ? Specimen(s) Received: ? A. ?R ethmoid c ontents ? B. ? L maxillary content s ? C. ? L frontal recess sp ecimen ? D. ? L sphenoid contents ? E. ? L ethmoid contents ? F. ? R sphenoid contents ? G. ? R frontal recess sp ecimen ? H. ? R maxillary content s and uncinate contents ? I. ? Septal cartilage ? J. ? Clinical History: ? Chronic sinusitis; ch ronic cephalgia; nasal polyposis B/L; ? immunocompromised, on immuno suppressant meds ? End of Report ? 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
--- OUTSIDE RECORDS SUMMARY | 2022-05-24 10:44 | XMS_ITS | Encounter Summary ---
:1955 Author Organization [facility] Address [address] [place] [address] Care Team Providers Name Role Phone Violetta Sanford MD Primary Care Provider Reason for Referral Follow Up (3 - 10 Business Days) - Receiving Office to Obtain Authorization Specialty Diagnoses / Procedures Referred By Contact Refer red To Contact Diagnoses Renal transplant, status post Acute kidney injury (HCC-CMS) (HCC) Community acquired pneumonia of left lower lobe of lung Shira Mccall DO [address] [place] [phone] Referral ID Status Reason Start Expiration Visits Visits Date Date Requested Authorized [id number] Receiving Office Continuity of 1 1 to Obtain Care 9 Authorization Question Answer Reason for Request: F/u hospitalization CAP and ANSELMO Expected Discharge Date (Inpatient Only): 11/19/2018 Comments Patient getting outpatient Creatine on 11/21 Encounter Details Date Type Department Care Team Description 11/15/2018 - [facility] Monae Truong MD [address] [place] [address] Elevated random blood glucose level (Steff sylvia Dx); 11/17/2018 Encounter General Surgery Orion King-Chante Mayfield MD [address] [id number] Renal transplant, status post; Unit Acute kidney injury (HCC-CMS ); [address] [facility] Community acquired pneumonia of left lower lobe of lung (HCC-CMS) [place] [address] Social History Tobacco Use Types Packs/Day Years Used Date Former Smoker Smokeless Tobacco: Never Used Sex Assigned at Date Recorded Not on file documented as of this encounter Last Filed Vital Signs Vital Sign Reading [...] Body Mass Index 54.27 11/16/2018 1300 EDT documented in this encounter Functional Status Functional Status Response [...] or older) documented as of this encounter Discharge Diagnoses Diagnosis J18.1 Lobar pneumonia, unspecified organ ism-J18.1[ICD-10-CM] T86.12 Kidney transplant failure-T86.12[ ICD-10-CM] Z68.43 Body mass index (BMI) 50-59.9, ad ult-Z68.43[ICD-10-CM] B37.0 Candidal stomatitis-B37.0[ICD-10-C M] E11.51 Type 2 diabetes mellitus with emmanuelle betic peripheral angiopathy without gangrene-E11.51[ICD-10-CM] E11.22 Type 2 diabetes mellitus with emmanuelle betic chronic kidney disease-E11.22[ICD-10-CM] J44.9 Chronic obstructive pulmonary dise ase, unspecified-J44.9[ICD-10-CM] N18.9 Chronic kidney disease, unspecifie d-N18.9[ICD-10-CM] E86.1 HYPOVOLEMIA[ICD-10-CM] I12.9 Hypertensive chronic kidney diseas e with stage 1 through stage 4 chronic kidney disease, or unspecified chronic kidney d isease-I12.9[ICD-10-CM] I25.10 Atherosclerotic heart disease of [place] coronary artery without angina pectoris-I25.10[ICD-10-CM] R25.1 Tremor, unspecified-R25.1[ICD-10-C M] E66.9 Obesity, unspecified-E66.9[ICD-10- CM] K21.9 Gastro-esophageal reflux disease w ithout esophagitis-K21.9[ICD-10-CM] Z66 Do not resuscitate-Z66[ICD-10-CM] D63.1 Anemia in chronic kidney disease-D 63.1[ICD-10-CM] T46.5X5A Adverse effect of other antihyp ertensive drugs, initial encounter-T46.5X5A[ICD-10-CM] Z89.512 Acquired absence of left leg bel ow knee-Z89.512[ICD-10-CM] Z79.4 correction (current) use of insulin -Z79.4[ICD-10-CM] Z89.511 Acquired absence of right leg be low knee-Z89.511[ICD-10-CM] Z87.891 Personal history of nicotine dep endence-Z87.891[ICD-10-CM] Z88.0 Allergy status to penicillin-Z88.0 [ICD-10-CM] Z79.82 correction (current) use of aspiri n-Z79.82[ICD-10-CM] documented in this encounter Discharge Summaries Orion King-Chante HAWK, - 11/17/2018 1028 EDT Medicine Discharge Summary Primary Care Provider: Violetta Sanford Attending Physician: Bienvenido King MD Admit Date: 11/15/2018 Discharge Date: 11/17/18 Disposition: Home or self care Reason for Admission: Left lower lobe pneumonia, and ANSELMO. Principal/Final Diagnosis: Community acquired pneumonia of left lower lobe of lung (HCC-CMS) Additional Problems Managed in the Hospital Active Hospital Problems Diagnosis Date Noted ??? *Community acquired pneumonia of left lower lobe of lung (HCC-CMS) 11/17/2018 ??? Acute kidney injury (HCC-[facility]) 11/17/2018 ??? Elevated random blood glucose level 11/15/2018 ??? Renal transplant, status post 11/15/2018 Resolved Hospital Problems No resolved problems to display. Principal Procedure: None Secondary Procedures: None Hospital Course: Leroy Dailey is a 63 y.o. male with a PMHx significant for PVD s/p bilateral BKA, CAD, Type 2 diabetes, CKD s/p left renal transplant on mycophenolate and tacrolimus, COPD who presented as a transfer, initially presented to [facility] with fever, chills, shortness of breath found to be due to left lowerlobe pneumonia and ANSELMO on CKD. ANSELMO on CKD-- At [facility] he was given fluids with lack of improvement. Losartan was held. Creatinine peaked at 2.7, from a recent baseline of 1.8 to 1.9. There was suspicion that he had ANSELMO secondary to tacrolimus and thus it was held for 3 doses. It was restated prior to arrival at [facility]. At [facility] transplant nephrology was consulted. Tacrolimus level on 11/16 was 6.0. Creatine improved to 2.12 on the dayof discharge. His ANSELMO was ultimately felt to be related to infection with hypovolemia and losartan use, which improved with holding losartan and fluid resuscitation. He was instructed to hold his losartan at discharge and have his creatinine rechecked on 11/21/2018. At [facility] he was treated with doxycycline and aztreonam in setting of recent hospitalization and suspicion for health-care associated. At [facility] he was switched to Ceftriaxone and doxycyline, which was transitioned to cefpodoxime and doxycycline, with plan to complete a total 7 day course. 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 Diabetes; Hgb A1c 7.8 - patient reported lows with this prior to admission regimen - discharge on levemir 35u BID and Humalog 15u with meals - insulin may need to be increased when he is able to eat his regular diet. Allergies Allergen Reactions ??? Iftikhar Inhibitors Skin rash ??? Cats [Cat Dander] wheezing ??? Clindamycin Rash ??? Ibuprofen ??? Lisinopril kidney failure ??? Penicillins ??? Tree Nut ??? Bactrim [Sulfamethoxazole-Trimethoprim] ??? Levofloxacin There is no immunization history on file for this patient. Results Pending at Discharge Test results still pending from this admission None Follow-up appointments and procedures Amb Consult/Follow Up Primary Care Physician Patient getting outpatient Creatine on Tuesday 11/21 Reason for Request: F/u hospitalization CAP and ANSELMO Expected Discharge Date (Inpatient Only): 11/19/2018 Authorizing Provider: Shira Mccall DO Additional Information: Please follow up with your primary care physician, Dr Violetta Sanford, on December 04, 2018 at 1:30pm. If you have any questions please call [phone]. Follow-up labs and tests Creatinine Complete by: Nov 17, 2018 (Approximate) Authorizing Provider: Shira Mccall DO Discharge Handoff Communication Contact was not made at the time of discharge-- left voicemail message with Dr. Preciado nurses. Awaiting a return page to give hand off. Discharge Summary Completed By: Shira Mccall DO 11/17/2018 10:47 I interviewed and examined the patient; reviewed interval labs, events, and notes; and discussed thecase with the medicine house staff team. I agree with and edited the findings and plan of care as documented in the discharge summary above. I reviewed the discharge instructions and follow-up plan with the patient. Total unit time I spent in the care of the patient on date of discharge: 30 Minutes ?? Bienvenido King MD Division of Hospital Medicine documented in this encounter Discharge Instructions Discharge Instr - AVS First Bienvenido Lebron MD, MD - 11/17/2018 10:24 EDT KIDNEYS Please get blood work done on Tuesday 11/21. We would like to check up on your kidney function/ creatinine. Results will be sent to your PCP Dr. Sanford. - please maintain good hydration. BLOOD PRESSURE Please HOLD/Stop taking losartan (aka cozaar) -- this medication can affect the kidneys. Dr. Sanford will determine when/if to restart this medication. In the hospital we started you on a medication called Nifedipine. - please start taking Nifedipine 1 tab every night. - follow up with PCP to discuss blood pressure medications INSULIN we recommend: Detemir/levemir 35units morning and night Lispro 15 units with meals Please check your blood sugar 4x a day. Before each meal and at bedtime You may need to increase your insulin doses back to what you had been taking before. Pneumonia: we sent an antibiotic perscription to the pharmacy at the hospitals main entrance. Doxycyline 1 tab morning and night Start this one tonight. Cefpodoxime: 1 tab morning and night- start this one tomorrow. Thank you. Shira Mccall DO 11/17/2018 10:26 Ruth Small - 11/17/2018 10:43 EDT Please follow up with your primary care physician, Dr Violetta Sanford, on December 04, 2018 at 1:30pm. If you have any questions please call [phone]. documented in this encounter Medications at Time of Discharge Medication Sig Dispensed Refills Start Date End Date albuterol 90 Inhale 2 puffs as 0 mcg/actuation inhaler directed every 6 hours as needed for Wheezing. aspirin 81 mg EC tablet Take 81 mg by mouth 0 daily. atorvastatin (LIPITOR) 10 Take 20 mg by mouth 0 mg tablet daily. cholecalciferol, Vitamin Take 2,000 Units by 0 D3, 1,000 unit tablet mouth daily. doxycycline (VIBRA-TABS) Take 1 tablet by 7 tablet 0 11/17 100 mg tablet mouth every 12 hours. Take one tonight 11/17 fluticasone propionate Instill 100 mcg into 0 (FLONASE) 50 both nostrils 2 mcg/actuation nasal spray times daily. folic acid (FOLVITE) 1 mg Take 1 mg by mouth 0 tablet daily. gabapentin (NEURONTIN) Take 900 mg by mouth 0 300 mg capsule 3 times daily. glucagon 1 mg recon soln Inject 1 mg into the 0 injection muscle as needed. insulin detemir U-100 Inject 80 Units into 0 (LEVEMIR) 100 unit/mL the skin at bedtime. injection insulin detemir U-100 Inject 50 Units into 0 (LEVEMIR) 100 unit/mL the skin every injection morning. insulin lispro (HUMALOG) Inject into the skin 0 100 unit/mL vial 3 times daily before meals. liraglutide (VICTOZA Inject 0.6 mg into 0 2-FAZAL) 0.6 mg/0.1 mL (18 the skin daily. mg/3 mL) injectable pen montelukast (SINGULAIR) Take 10 mg by mouth 0 10 mg tablet daily. Multivitamins with Take 1 tablet by 0 Minerals tablet tablet mouth daily. mycophenolate (CELLCEPT) Take 500 mg by mouth 0 250 mg capsule 2 times daily. omeprazole (PRILOSEC) 20 Take 40 mg by mouth 0 mg capsule daily. tacrolimus (PROGRAF) 0.5 Take 0.5 mg by 0 mg capsule mouth. Take 2 capsules (1mg) in am and 1 capsule (0.5mg) in PM tiotropium-olodaterol Inhale as directed. 0 (STIOLTO RESPIMAT) 2.5-2.5 mcg/actuation inhaler cefpodoxime (VANTIN) 200 Take 1 tablet by 12 tablet 0 11/1711/23/2018 mg tablet mouth 2 times daily for 6 days. Start tomorrow morning NIFEdipine ER (ADALAT CC) Take 1 tablet by 10 tablet 0 10/2411/27/2018 30 mg tablet mouth at bedtime for 10 days. documented as of this encounter Ordered Prescriptions Prescription Sig Dispensed Refills Start Date End Date doxycycline (VIBRA-TABS) Take 1 tablet by 7 tablet 0 11/17 100 mg tablet mouth every 12 hours. Take one tonight 11/17 NIFEdipine ER (ADALAT CC) Take 1 tablet by 10 tablet 0 10/2411/27/2018 30 mg tablet mouth at bedtime for 10 days. cefpodoxime (VANTIN) 200 Take 1 tablet by 12 tablet 0 11/1711/23/2018 mg tablet mouth 2 times daily for 6 days. Start tomorrow morning documented in this encounter Discharge Disposition Disposition Code Departure Means Destination Home or Self Care documented in this encounter Progress Notes Adan Skinner MD, MD - 11/17/2018 1047 EDT Transplant Nephrology Consult Note Admit Date: 11/15/2018 Hospital Day: LOS: 2 days Date of Service: 11/17/2018 Attending Physician: Bienvenido King MD Reason for Consult: - Medical Management of Immunosuppression - s/p Kidney transplant - Volume and electrolyte management - Management of post transplant hypertension Transplant History ESRD due to DM 2 Donor Kidney transplant at [facility] in 2008 He is followed there On dual immunosuppression with tacrolimus/ MMF Impressions/Recommendations: Leroy Dailey is a 63 y.o. male with past medical history of ESRD most likely due to diabetic nephropathy, s/p kidney transplantation at [facility] and other H including PVD s/p bilateral BKA, CAD,Type 2 diabetes, CKD stage 3 (baseline creatinine with this graft at about 2.0 mg/dl), on dual immunosuppressive regimen with Tacrolimus and Mycophenolate admitted with fever, chills, shortness of breath and diagnosed with left lower lobe pneumonia. Allograft function: Serum creatinine is 2.1 this am 11/17 and continues to improve. Baseline as per reports of 1.5 - 2.0. Improving from 2.7 at OSH. He has been on maintenance IV fluids 0.9 % NaCl at 30cc per hour since 1999 last night and allowed to drink freely. He took only 600 cc PO and put out 2125 cc. That is negative 1385 cc. I would recommend continuing the IV fluids to keep him at least equal in fluid balance and until he is able to drink 5787-4740 cc per day. ANSELMO is most likely due to infectious process / pneumonia and mild volume depletion in the context of the infection and in the presence of ARB and possibly higher than goal tacrolimus level. Tacrolimus level 12 hr trough level was 6.0 on 11/16 which is at goal. Immunosuppression: Reviewed immunosuppression and documented above. Continue Tacrolimus 1 mg in am and 0.5 mg in pm and MMF 500 mg bid po Tacrolimus level 12 hr trough level pending LLL pneumonia: changed to doxycycline 100 mg bid po and Ceftriaxone 1000 mg once a day iv Cultures pending. COPD : albuterol and ipratropium inhaled and montelukast po Hypertension: goal blood pressure <130/80, He was on losartan that has been held due to ANSELMO. I agree with CCB instead. Conitunue nifedipine 30 mg in the evening po Anemia: Hg 10.5- anemia of CKD and drug induced. Stable Electrolytes: - K 4.7 GERD prophylaxis: pantoprazole 40 mg qd po Infection prophylaxis: - Oral thrush : Nystatin 5 cc (swish and swallow) every 6 hours daily DM 2: uncontrolled BG most likely due to acute inflammatory process / infection. Insulin Levemir 30 units at bedtime and novolog sliding scaleSQ Subjective: I saw and examined the patient this am. was at bedside. He feels very well and better since being admitted at [facility]. Denies fever, chills, SOB, diarrhea 11 point review of system is as above, otherwise negative. Past medical history, Past surgical history, Current Medications, Recent Laboratory findings, Allergies, Social and Family History were all reviewed today thoroughly in the electronic medical records and discussed with the patient. Current Facility-Administered Medications: acetaminophen (TYLENOL) tablet 650 mg oral Q6H albuterol inhaler 2 puff inhalation Q6H PRN aspirin EC tablet 81 mg oral DAILY atorvastatin (LIPITOR) tablet 20 mg oral DAILY cefTRIAXone (ROCEPHIN) 1,000 mg in sodium chloride (NS MBP) 50 mL IVPB intravenous DAILY dextrose 50 % solution 12.5 g intravenous PRN doxycycline (VIBRA-TABS) tablet 100 mg oral Q12H gabapentin (NEURONTIN) capsule 300 mg oral BID glucagon injection 1 mg intramuscular PRN heparin injection 5,000 Units subcutaneous Q8H insulin aspart U-100 (NOVOLOG FLEXPEN) injection 10 Units subcutaneous TID WC insulin aspart U-100 (NOVOLOG FLEXPEN) injection subcutaneous TID WC insulin detemir U-100 (LEVEMIR) injection 30 Units subcutaneous BID L.A. INSULIN montelukast (SINGULAIR) tablet 10 mg oral QHS mycophenolate (CELLCEPT) capsule 500 mg oral BID NIFEdipine ER (ADALAT CC) tablet 30 mg oral QHS nystatin (MYCOSTATIN) suspension 500,000 Units swish and swallow QID pantoprazole (PROTONIX) tablet 40 mg oral DAILY tacrolimus (PROGRAF) capsule 0.5 mg oral QPM tacrolimus (PROGRAF) capsule 1 mg oral DAILY tiotropium (SPIRIVA) 18 mcg inhalation capsule 18 mcg inhalation DAILY Objective: VS range for last 24 hours: Temp: [35.9 ??C (96.6 ??F)-36.6 ??C (97.8 ??F)] () Pulse: [62-63] () Resp: [16-20] () BP: (124-144)/(58-66) () SpO2: [94 %-99 %] () I+O: Intake/Output Summary (Last 24 hours) at 11/17/2018 1047 Last data filed at 11/17/2018 0900 Gross per 24 hour Intake 1100 ml Output 2200 ml Net -1100 ml General Appearance: No Acute Distress HEENT : Sclerae clear and Pupils equal Heart: Regular Rate/Rhythm Lungs: left lower lobe with mild crackles Abdomen: Soft , Non-Distended, Non-Tender and + Bowel Sounds Extremities: Bilateral below knee amputations Last 24 hours:11/16 0700 - 11/17 0659 In: 1030 [P.O.:600; I.V.:380] Out: 2475 [Urine:2475] Current 24 hours: Date 11/17/18 07 - 11/18/18 0659 Shift [id number] 6709-0175 2381-1416 24 Hour Total INTAKE P.O. 360 360 Shift Total(mL/kg) 360(2.5) 360(2.5) OUTPUT Shift Total(mL/kg) Weight (kg) 143.4 143.4 143.4 143.4 Weights: Wt Readings from Last 5 Encounters: 11/17/18 (!) 143.4 kg (316 lb 2.2 oz) Labs: Results for LEROY DAILEY ( ) as of 11/17/2018 10:52 Ref. Range 11/17/2018 06:07 Sodium Latest Ref Range: 136 - 145 mEq/L 141 Potassium Latest Ref Range: 3.5 - 5.0 mEq/L 4.7 CO2 Latest Ref Range: 22 - 32 mEq/L 21 (L) Chloride Latest Ref Range: 96 - 110 mEq/L 112 (H) BUN Latest Ref Range: 10 - 26 mg/dl 54 (H) Creatinine Latest Ref Range: 0.66 - 1.25 mg/dl 2.12 (H) GFR, Calculated Latest Ref Range: >60 ml/min/1.73m2 32 (L) WBC Latest Ref Range: 4.0 - 10.4 K/cmm 5.43 RBC Latest Ref Range: 4.36 - 5.78 M/cmm 3.43 (L) Hemoglobin Latest Ref Range: 13.8 - 17.3 gm/dl 10.5 (L) HCT Latest Ref Range: 39.5 - 50.2 % 32.4 (L) MCV Latest Ref Range: 81 - 95 fl 95 MCH Latest Ref Range: 27.6 - 33.0 pg 30.6 MCHC Latest Ref Range: 32.8 - 36.4 gm/dl 32.4 (L) RDW-CV Latest Ref Range: <14.2 % 14.3 (H) RDW-SD Latest Ref Range: <46.0 fl 49.2 (H) PLT Latest Ref Range: 141 - 377 K/cmm 212 Adan Skinner M.D, F.A.CJefferyP Attending Transplant Drapery Hemmer Automatic Leather Repairer of Transplant Programs [facility] Technical Communication Teacherglobal marketing coordinator, Del Day MD [facility] at [address], [facility] Pager # [phone] [email or web address] Lloyd Bailey - 11/16/2018 1216 EDT Initial Case Management/Social Work Assessment and Discharge Plan/Readmission Risk Assessment REASON FOR ADMISSION: Fevers, chills, shortness of breath Patient understands reason for admission: Yes PATIENT CONTACT INFO VERIFIED: Yes PATIENT ADDRESS VERIFIED: Yes LIVING ARRANGEMENTS AND ACCESSIBILITY ISSUES: Living Arrangements: Spouse / significant other, Parent Levels: 2 Handicap access: Ramp Bathroom located on bedroom level?: Yes What in home social supports are available to the patient? Spouse / significant other Is 14/02 care available? Yes ADVANCED DIRECTIVES, POA &/or COLST IN PLACE: Healthcare Directive: Yes, patient has advance directive for healthcare treatment DIRECTIVES FOR FINANCES: TRANSPORTATION: Transportation: Self, Family CULTURAL, MORAVIAN and/or LANGUAGE factors affecting health care/discharge planning: Spiritual/Cultural Requests: None Any factors affecting health care/discharge planning?: No Insurance in Place: Yes Medical Insurance: Yes Type of insurance: Medicare, Supplemental plan to Medicare Medicare type: A, B [facility] Referred to patient financial services: No DISCHARGE RISK ASSESSMENT: Polypharmacy, > 7 medications Total # selected above: Tentative plan to address the risk of re-hospitalization for those at HIGH MODERATE RISK: RAPT TOOL: Age: 50-65 Gender: Male Ambulation distance: Housebound most of the time Gait device: Crutch/Walker Community Services: Home health, MOW, SAS-none of one time a week Will you live with someone who will care for you?: Yes RAPT Tool Score: 8 Patient expects to be discharged to: home SBIRT: SASQ (Single Alcohol Screening Question) How many times in the past year have you had 5 or more drinks in a single day?: Never How many times in the past year have you used an illegal drug or used a prescription medication for non-medical reasons?: Never Intervention in place/initiated?: No, not indicated FUNCTIONAL STATUS: Activities patient requires assistance: None Assistive Device: Front wheel walker, Wheelchair, Shower chair, Grab bars(bed trapeze) COMMUNITY RESOURCES/SUPPORTS: Primary Care Provider: Violetta Sanford PCP Verified: Yes Specialists: Nephrology, Endocrinology, Neurology Type of Home Health Services: None DME Provider: Tita Pharmacy: No Pharmacies Listed Home Health: Other: (none) POST HOSPITAL TRANSITION PLAN: Pt has a PMHx significant for PVD s/p bilateral BKA, CAD, Type 2 diabetes, CKD s/p left renal transplant on mycophenolate and tacrolimus, COPD who presents as a transfer, initially presented to [facility] with fever, chills, shortness of breath found to be due to left lower lobe pneumonia. Pt followed closely by [facility]. This comic writer met with pt and spouse Linda at the bedside. Pt lives with Linda and his mother in a private home in [place], [place]. Home is handicapped accessible equipped with ramps, bed tapeze, hand rails, shower chair. Additional DME includes a 2 wheel and 4 wheel walker and a wheelchair. Pt reports he has no difficulty ambulating with prosthetics. 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 He states he is not involved with any community services or agencies and he does not have HH services. Discharge pending clinical course. Pt reports he hasno concerns with being discharge home. Lloyd Salas RN, HEAD AND NECK SURGEON, [facility] Pager # [phone] LLOYD SALAS 11/16/2018 12:17 documented in this encounter H&P Notes Bievnenido King MD, - 11/15/2018 1612 EDT Medicine Admission History & Physical Service Date: 11/15/2018 Admit Date: 11/15/2018 15:57 Primary Care Provider: Violetta Sanford Chief Complaint: Fevers, chills, shortness of breath HPI Per telephone encounter from Dr. Truong 11/13/18: Called by Dr. Lynch, hospitalist at [facility]: Sylvia ?? 63yo with history of renal transplant years ago on prograf, DM, PVD with B/l BKA admitted in middle of night last night due to respiratory symptoms found to have LLL infiltrate on CT chest started on Doxy and aztreonam for community acquired pneumonia. Blood cultures drawn prior to abx. Tm 39.2. Also with Acute on CKD ?stage with Cr 2.5 from baseline 1.8-1.9. Follows with renal transplant at [facility], but they have no beds and told Dr. Lynch they do not have a waiting list. ?? Also with BS in 300-360 range on Levemir 50 units qAM and 80 units qPM with 20 units aspart qAC withSSI. May need insulin drip but titrating insulin dosing. ?? Cr This morning now 2.7 from 2.5 on admission after giving IVF. ?? Na 136 Bicarb 21.8 BUN 38 Cr 2.7 WBC 9.7 Hb 12 Plt 216 ?? Flu swab negative ?? Current VS 37.1, 143/68, 72, 20, 99% on room air ?? Patient accepted in transfer, however no bed availability likely for 24-[address] Lynch will try to call [facility] again in the morning since patient does receive his usual carethere. She will notify us if he does get a bed there. Initially presented to [facility] in [facility] on Sunday 11/12 for chills and a temp of 103.6 as well ashaving a heard time breathing. He was admitted and the doctor started finding other things wrong with me my heart went into 'fibrillation' it flipped back and it is normal now. She said my kidney trans plants did not look good I had too much toxicity. And she stopped the prograf. They took prograf offfor 1.5 days. Back on it now. [facility] doctor called nephrology from [facility]. He states that he feels that his respiratory symptoms have gotten worse over the past two days. Patient feels that his chest in heavy. He is short of breath when he exerts himself. States he is having some shortness of breath right now. Patient notes throat pain as well. Notes that he had abdominal discomfort and nausea on initial presentation to [facility], but this has resolved. Patient's prograf was discontinued while at [facility], and restarted on 11/15 with 1 mg in morning. Received last dose of mycophenolate 500 mg this morning as well. [facility] notes that he became hypoglycemic to 70s when he received 60 units of levemir last night, switched to 40 units lantus. Received last dosesof aztreonam and doxycycline today before transfer. Patient lives in [place], [place] with mother and . Transfers with prosthetic legs, otherwise uses wheelchair to move around. Smoked for around 15 years, quit 30 years ago. No alcohol use. Review of Systems A complete 10 point ROS was performed and pertinent positive and negative findings listed in HPI, otherwise negative. Past Medical History: Diagnosis Date ??? COPD (chronic obstructive pulmonary disease) (HCC-CMS) ??? Essential tremor ??? Insulin dependent diabetes mellitus (HCC-[facility]) ??? S/p cadaver renal transplant Past Surgical History: Procedure Laterality Date ??? APPENDECTOMY ??? DIALYSIS FISTULA CREATION Left ??? KIDNEY TRANSPLANT Left 02/29/2008 ??? LEG AMPUTATION BELOW KNEE Bilateral Social History Tobacco Use ??? Smoking status: Not on file Substance Use Topics ??? Alcohol use: Not on file No family history on file. Medications Prior to Admission Medication Sig ??? albuterol 90 mcg/actuation inhaler Inhale 2 puffs as directed every 6 hours as needed for Wheezing. ??? aspirin 81 mg EC tablet Take 81 mg by mouth daily. ??? atorvastatin (LIPITOR) 10 mg tablet Take 20 mg by mouth daily. ??? cholecalciferol, Vitamin D3, 1,000 unit tablet Take 2,000 Units by mouth daily. ??? fluticasone propionate (FLONASE) 50 mcg/actuation nasal spray Instill 100 mcg into both nostrils2 times daily. ??? folic acid (FOLVITE) 1 mg tablet Take 1 mg by mouth daily. ??? gabapentin (NEURONTIN) 300 mg capsule Take 900 mg by mouth 3 times daily. ??? glucagon 1 mg recon soln injection Inject 1 mg into the muscle as needed. ??? insulin detemir U-100 (LEVEMIR) 100 unit/mL injection Inject 80 Units into the skin at bedtime. ??? insulin detemir U-100 (LEVEMIR) 100 unit/mL injection Inject 50 Units into the skin every morning. ??? insulin lispro (HUMALOG) 100 unit/mL vial Inject into the skin 3 times daily before meals. ??? liraglutide (VICTOZA 2-FAZAL) 0.6 mg/0.1 mL (18 mg/3 mL) injectable pen Inject 0.6 mg into the skin daily. ??? losartan (COZAAR) 25 mg tablet Take 12.5 mg by mouth daily. ??? montelukast (SINGULAIR) 10 mg tablet Take 10 mg by mouth daily. ??? Multivitamins with Minerals tablet tablet Take 1 tablet by mouth daily. ??? mycophenolate (CELLCEPT) 250 mg capsule Take 500 mg by mouth 2 times daily. ??? omeprazole (PRILOSEC) 20 mg capsule Take 40 mg by mouth daily. ??? tacrolimus (PROGRAF) 1 mg capsule Take by mouth 2 times daily. ??? tiotropium-olodaterol (STIOLTO RESPIMAT) 2.5-2.5 mcg/actuation inhaler Inhale as directed. Allergies Allergen Reactions ??? Iftikhar Inhibitors Skin rash ??? Cats [Cat Dander] wheezing ??? Clindamycin Rash ??? Ibuprofen ??? Lisinopril kidney failure ??? Penicillins ??? Tree Nut ??? Bactrim [Sulfamethoxazole-Trimethoprim] ??? Levofloxacin Objective Vitals Patient Vitals for the past 24 hrs: BP Temp Temp src Resp SpO2 11/15/18 1836 ? 16 98 % 11/15/18 1616 (!) 160/69 36.2 ??C (97.2 ??F) Tympanic 16 97 % Weight: There is no height or weight on file to calculate BMI. Physical Exam General: Obese male lying in bed, has intention tremor in arms. Alert and aware. HEENT: Neck is tender to palpation, no cervical lymphadenopathy. Posterior oropharynx is erythematous with white plaques. Cardiovascular: RRR, normal S1 and S2, no murmurs, rubs, gallops. Radial pulses palpable. Respiratory: Light inspiratory crackles in left lower lobe, no increased work of breathing. Abdomen: Obese, soft. Well healed scar on left side from renal transplant. No tenderness to palpation. Appropriate bowel movements. : No dixon Skin: Warm and dry. Extremities: Bilateral below knee amputations, well healed. Area of redness on lateral aspect of right knee, not tender to palpation. Pressure Ulcer Present on admission? No Labs I have personally reviewed: Labs pending. Imaging I have independently visualized images. Outside images CT Abdomen/Pelvis: LLL infiltrate. Atrophic kidneys. Soft tissue edema on abdomen. CXR: LLL infiltrate. Assessment Leroy Dailey is a 63 y.o. male with a PMHx significant for PVD s/p bilateral BKA, CAD, Type 2 diabetes, CKD s/p left renal transplant on mycophenolate and tacrolimus, COPD who presents as a transfer, initially presented to [facility] with fever, chills, shortness of breath found to be due to left lower lobe pneumonia. Patient has been treated with doxycycline and aztreonam in setting of recent hospitalization and suspicion for HAP. Additionally, patient presented with ANSELMO in setting of CKD, with suspicion for tacrolimus toxicity and uncontrolled diabetes with blood glucose in 300's. Patient has been transferred to [facility] for further management due to his renal transplant. Patient had atrial fibrillation which is new for him at [facility], but this resolved. Patient is hemodynamically stable. Plan Pneumonia Febrile at [facility], now afebrile. CXR there with LLL consolidation. They were unable to collect sputum culture. Of note patient is immunocompromised due to tacrolimus and per transfer records he has be hospitalized with in the past 2 months. At [facility] he was started on doxycycline and aztreonam due to suspicion for HAP, but presentation is more consistent with CAP. -Switch to azithromycin 250 mg daily and Ceftriaxone 1000 mg daily -tylenol 650mg q6hr PRN -Blood cultures at [facility] pending, negative after 48 hrs. ANSELMO on CKD, s/p left renal transplant 2007 Cr 2.7 at [facility], from baseline 1.8-1.9. Potassium elevated to 5.5 on initial evaluation at [facility] with peaked T-waves on EKG, received calcium gluconate , insulin, bicarb, and albuterol with response. On mycophenolate and tacrolimus, question of whether ANSELMO may be due to tacrolimus toxicity vs prerenal given lack of improvement with IVF. Voiding, less likely to be obstructive. - Transplant nephrology consult - EMBEDDED SOFTWARE PROGRAMMER tacrolimus 1mg BID and mycophenolate 500mg BID -Tacrolimus level - daily lytes - daily creatine - hold losartan Type II Diabetes 300-360 range on Levemir 55 units qAM and 55 units qPM with 35 units aspart 4 times a day with mealswith SSI. Also on Victoza 1.8 mg. Glucose 204 on admission. - hemoglobin A1c ordered - Insulin levemir 30 units BID, novolog flexpen w/ SSI for meals - carb consistent diet - SSI - POCT glucose Atrial fibrillation AT [facility], found to be in a-fib, resolved. Anticoagulation there held pending discussions with nephrology/cardiology. Not currently requiring rate control. -Class III Telemetry CAD Reports worsening chest pressure and dyspnea on exertion in setting of recent pneumonia. Per chart review, patient has history of CAD on aspirin and atorvastatin. No history of CA. Troponins negative at [facility]. -EMBEDDED SOFTWARE PROGRAMMER aspirin 81 mg and atorvastatin 20 mg -EKG -Class III telemetry COPD Albuterol and stiolto respimat at home. Not on home O2, saturating appropriately on room air. Reports increased shortness of breath in past few days in setting of pneumonia. -Albuterol PRN -Montelukast 10 mg daily -Spiriva 18 mcg daily HTN Hold losartan 25 mg in setting of ANSELMO. BP on admission elevated to 160/69. -Start nifedipine 30 mg Oral thrush in setting of immunosuppression Throat is erythematous with white plaque, reports sore throat. -Nystatin swish and swallow Chronic conditions GERD: omeprazole 40 mg daily Pain: Gabapentin 300mg BID given ANSELMO (EMBEDDED SOFTWARE PROGRAMMER dose 900 mg TID) VTE Prophylaxis Pharmacologic Prophylaxis: Heparin 5000 units SQ Tid Code: DNR, intubation would be acceptable Discharge Plan Uncertain at this time Consults Transplant Nephrology Admission Status Inpatient. Anticipated duration of hospitalization is greater than two midnights due to ANSELMO with CKDin renal transplant patient and pneumonia. Navin Beltrán MS4 11/15/2018 16:12 Pager [phone] Attending Attestation I interviewed and examined the patient and personally reviewed laboratory studies, radiographic studies from [facility], and medical records. I evaluated and examined the patient with the medical student, Navin Beltrán, and discussed the case with the Medicine residents and agree with history, exam, assessment and plan of care as documented in the note above (with edits in Green). 63 yo man with hx of diabetes, s/p renal transplant in 2007 with CKD, who presented with sepsis and ANSELMO suspected to be due to pneumonia. S/p 3 days of abx with aztreonam and doxycycline at [facility] with defervescence. We will continue treatment for CAP with CTX and azithromycin due to low suspicion for MRSA and pseudomonas at this time. Will continue MMF and tacrolimus and consult transplant nephrology tomorrow due to ANSELMO with concern for tacrolimus induced nephrotoxicity vs chronic rejection. He is fluid replete and so will not give additional fluids at this time. Date of Service: 11/15/2018 Bienvenido King MD Internal Medicine Hospitalist documented in this encounter Consult Notes Adan Skinner MD, MD - 11/16/2018 0904 EDT Transplant Nephrology Consult Note Admit Date: 11/15/2018 Hospital Day: LOS: 1 day Date of Service: 11/16/2018 Attending Physician: Bienvenido King MD Reason for Consult: - Medical Management of Immunosuppression - s/p Kidney transplant - Volume and electrolyte management - Management of post transplant hypertension Transplant History ESRD due to DM 2 Donor Kidney transplant at [facility] in 2008 He is followed there On dual immunosuppression with tacrolimus/ MMF Impressions/Recommendations: Leroy Dailey is a 63 y.o. male with past medical history of ESRD most likely due to diabetic nephropathy, s/p kidney transplantation at [facility] . Other significant PMH includes PVD s/p bilateral BKA, CAD, Type 2 diabetes, CKD stage 3 (baseline creatinine with this graft at about 2.0 mg/dl). He is on dual immunosuppressive regimen with Tacrolimus and Mycophenolate. He was transferred from outside hospital where he presented with fever, chills, shortness of breath and was found to be due to left lower lobe pneumonia. He was not accepted at [facility] wherehe has been followed as an outpatient due to lack of available beds. He was treated initially with doxycycline and aztreonam for possible hospital acquired pneumonia since he had a recent prior hospitalization. His serum creatinine was elevated from his baseline based on the reports at 2.7 from 2.0. He also had uncontrolled blood glucose most likely due to the infection. Tacrolimus level was not measured at the OSH due to unavailability of the test. Patient has been transferred to [facility] for further management due to his renal transplant. Patient had atrial fibrillation which is new for him at [facility], but this resolved. Patient is hemodynamically stable. On admission at [facility] he was switched to azithromycin 250 mg qd po and ceftriaxone 1000 mg qd IV. Blood cultures at OSH are still pending. No labs were done last night so no SCr is available but this am labs are pending. He was on Losartan that was held when he came here. Allograft function: Serum creatinine is 2.40 this am 11/16 from baseline as per reports of 2.0. Improving from 2.7 at OSH. I would recommend maintenance IV fluids 0.9 % NaCl at 30 cc per hour over the next 24 hrs and allow free po intake until he is able to drink about 2.5 liters per day on his own. Excellent UOP ANSELMO is most likely due to infectious process / pneumonia and mivd volume depletion in the context of the infection and in the presence of ARB and possibly higher than goal tacrolimus level. Tacrolimus level 12 hr trough leve needs to be checked. Immunosuppression: Reviewed immunosuppression and documented above. He states that he was on Tacrolimus 1 mg in am and 0.5 mg in pm and MMF 500 mg bid po Continue current immunosuppression at current doses Tacrolimus level 12 hr trough level daily to get an idea of his level especially now that he is acutely ill and on several new medications that can potentially affect the level LLL pneumonia: started on azithromycin 250 mg qd po and Caftraixone 1000 mg once a day iv Cultures pending. COPD : albuterol and ipratropium inhaled and montelukast po Hypertension: goal blood pressure <130/80, He was on losartan that has been held due to ANSELMO. I agree with CCB instead. Conitunue nifedipine 30 mg in the evening po Anemia: Hg 10.7- anemia of CKD and drug induced. Stable Electrolytes: - Magnesium 2.0 - wnl - K 5.1 GERD prophylaxis: pantoprazole 40 mg qd po Infection prophylaxis: - Oral thrush : Nystatin 5 cc (swish and swallow) every 6 hours daily DM 2: uncontrolled BG most likely due to acute inflammatory process / infection. Insulin Levemir 30 units at bedtime and novolog sliding scaleSQ HPI : Leroy Dailey is a 63 y.o. male with past medical history of ESRD most likely due to diabetic nephropathy, s/p kidney transplantation at [facility] . Other significant PMH includes PVD s/p bilateral BKA, CAD, Type 2 diabetes, CKD stage 3 (baseline creatinine with this graft at about 2.0 mg/dl). He is on dual immunosuppressive regimen with Tacrolimus and Mycophenolate. He was transferred from outside hospital where he presented with fever, chills, shortness of breath and was found to be due to left lower lobe pneumonia. He was not accepted at [facility] wherehe has been followed as an outpatient due to lack of available beds. He was treated initially with doxycycline and aztreonam for possible hospitalaxquired pneumonia since he had a recent prior hospitalization. His serum creatinine was elevated from his baseline based on the reports at 2.7 from 2.0. [place] had uncontrolled blood glucose most likely due to the infection. Tacrolimus level was not measured at the OSH due to unavailability of the test. Patient has been transferred to [facility] for further management due to his renal transplant. Patient had atrial fibrillation which is new for him at [facility], but this resolved. Patient is hemodynamically stable. On admission at [facility] he was switched to azithromycin 250 mg qd po and ceftriaxone 1000 mg qd IV. Blood cultures at OSH are still pending. No labs were done last night so no SCr is available but this am labs are pending. He was on Losartan that was held when he came here. This am SCr is improved to 2.4 Subjective: I saw and examined the patient this am. was at bedside. He feels very well and better since being admitted at [facility]. Denies fever, chills, SOB, diarrhea 11 point review of system is as above, otherwise negative. PMH PSH Past Medical History: Diagnosis Date ??? COPD (chronic obstructive pulmonary disease) ([facility]) ??? Essential tremor ??? Insulin dependent diabetes mellitus ([facility]) ??? S/p cadaver renal transplant Past Surgical History: Procedure Laterality Date ??? APPENDECTOMY ??? DIALYSIS FISTULA CREATION Left ??? KIDNEY TRANSPLANT Left 02/29/2008 ??? LEG AMPUTATION BELOW KNEE Bilateral Social History Family history Social History Tobacco Use ??? Smoking status: Not on file Substance Use Topics ??? Alcohol use: Not on file No family history on file. Current Facility-Administered Medications: acetaminophen (TYLENOL) tablet 650 mg oral Q6H albuterol inhaler 2 puff inhalation Q6H PRN aspirin EC tablet 81 mg oral DAILY atorvastatin (LIPITOR) tablet 20 mg oral DAILY azithromycin (ZITHROMAX) tablet 250 mg oral DAILY cefTRIAXone (ROCEPHIN) 1,000 mg in sodium chloride (NS MBP) 50 mL IVPB intravenous DAILY dextrose 50 % solution 12.5 g intravenous PRN gabapentin (NEURONTIN) capsule 300 mg oral BID glucagon injection 1 mg intramuscular PRN heparin injection 5,000 Units subcutaneous Q8H insulin aspart U-100 (NOVOLOG FLEXPEN) injection subcutaneous TID WC insulin detemir U-100 (LEVEMIR) injection 30 Units subcutaneous QHS montelukast (SINGULAIR) tablet 10 mg oral QHS mycophenolate (CELLCEPT) capsule 500 mg oral BID NIFEdipine ER (ADALAT CC) tablet 30 mg oral QHS nystatin (MYCOSTATIN) suspension 500,000 Units swish and swallow QID pantoprazole (PROTONIX) tablet 40 mg oral DAILY tacrolimus (PROGRAF) capsule 1 mg oral BID TRANSPLANT tiotropium (SPIRIVA) 18 mcg inhalation capsule 18 mcg inhalation DAILY Objective: VS range for last 24 hours: Temp: [35.8 ??C (96.4 ??F)-36.2 ??C (97.2 ??F)] () Pulse: -- () Resp: [16] () BP: (115-160)/(56-69) () SpO2: [89 %-98 %] () I+O: Intake/Output Summary (Last 24 hours) at 11/16/2018 0904 Last data filed at 11/16/2018 0646 Gross per 24 hour Intake ??? Output 1350 ml Net -1350 ml General Appearance: No Acute Distress HEENT : Sclerae clear and Pupils equal Heart: Regular Rate/Rhythm Lungs: left lower lobe with mild crackles Abdomen: Soft , Non-Distended, Non-Tender and + Bowel Sounds Extremities: Bilateral below knee amputations Last 24 hours:11/15 0700 - 11/16 0659 In: - Out: 1350 [Urine:1350] Current 24 hours: Weights: Wt Readings from Last 5 Encounters: 11/16/18 (!) 141 kg (310 lb 13.6 oz) Labs: Results for LEROY DAILEY ( ) as of 11/16/2018 09:02 Ref. Range 11/16/2018 08:25 WBC Latest Ref Range: 4.0 - 10.4 K/cmm 5.82 RBC Latest Ref Range: 4.36 - 5.78 M/cmm 3.49 (L) Hemoglobin Latest Ref Range: 13.8 - 17.3 gm/dl 10.7 (L) HCT Latest Ref Range: 39.5 - 50.2 % 33.2 (L) MCV Latest Ref Range: 81 - 95 fl 95 MCH Latest Ref Range: 27.6 - 33.0 pg 30.7 MCHC Latest Ref Range: 32.8 - 36.4 gm/dl 32.2 (L) RDW-CV Latest Ref Range: <14.2 % 14.6 (H) RDW-SD Latest Ref Range: <46.0 fl 50.4 (H) PLT Latest Ref Range: 141 - 377 K/cmm 212 Results for LEROY DAILEY ( ) as of 11/16/2018 12:31 Ref. Range 11/16/2018 08:25 Sodium Latest Ref Range: 136 - 145 mEq/L 138 Potassium Latest Ref Range: 3.5 - 5.0 mEq/L 5.1 (H) CO2 Latest Ref Range: 22 - 32 mEq/L 20 (L) Chloride Latest Ref Range: 96 - 110 mEq/L 108 BUN Latest Ref Range: 10 - 26 mg/dl 49 (H) Creatinine Latest Ref Range: 0.66 - 1.25 mg/dl 2.40 (H) ALT Latest Ref Range: 21 - 72 U/L 23 GFR, Calculated Latest Ref Range: >60 ml/min/1.73m2 27 (L) Calcium Latest Ref Range: 8.5 - 10.5 mg/dl 9.5 Calculated Calcium Latest Ref Range: 8.5 - 10.5 mg/dl 10.1 Phosphorus Latest Ref Range: 2.5 - 4.5 mg/dl 4.6 (H) MAGNESIUM Unknown Rpt Magnesium Latest Ref Range: 1.7 - 2.8 mg/dl 2.0 Total Alkaline Phosphatase Latest Ref Range: 38 - 126 U/L 109 AST Latest Ref Range: 15 - 46 U/L 16 Bilirubin, Total Latest Ref Range: <1.4 mg/dl <0.5 Adan Skinner M.D, FKurtisCJefferyP Attending Transplant Drapery Hemmer Automatic Leather Repairer of Transplant Programs [facility] Technical Communication Teacherglobal marketing coordinator, Del Day MD [facility] at [address], [facility] Pager # [phone] [email or web address] in this encounter Miscellaneous Notes Plan of Care - Chante Ponce, RN - 11/17/2018 1405 EDT Problem: Daily Care Plan Goals Goal: Care Plan Documentation Outcome: Met This Shift 11/17/18 0700 Care Plan Focus Area of Focus Discharge Plan Goal This Shift Pt will be discharged and recieve dc teaching BP (!) 147/68 (BP Cuff Location: Right arm, Patient Position: Sitting) Pulse 62 Temp 36.6 ??C (97.9 ??F) (Tympanic) Resp 20 Ht 162.6 cm (64) Comment: 74inches with prosthesis Wt (!) 143.4 kg(316 lb 2.2 oz) SpO2 97% BMI 54.27 kg/m?? Nursing Discharge Note D: Patient noted with discharge orders to: home. A: Prescriptions faxed to pharmacy. Reviewed discharge instructions and prescriptions with Patient and Family IV d/c'd. Belongings collected and sent home with patient. R: Patient and Family verbalized understanding of discharge instructions and denied further questions. CHANTE PONCE RN 11/17/2018 14:03 lan of Care - Nicky Salazar RN - 11/17/2018 0222 EDT Problem: Daily Care Plan Goals Goal: Care Plan Documentation Outcome: Met This Shift 11/16/18 1929 Care Plan Focus Area of Focus Sleep Goal This Shift pt will sleep Data: Pt reporting 0/10, CG to bathroom. Requesting to get sleep overnight, at bedside. Action: Administered scheduled medications - see eMAR. Assisted patient to bathroom as needed throughout night. Clustered nursing care to promote rest. Response: Pt sleeping comfortably throughout night. Call light within reach, will continue to monitor. Nicky Salazar RN 11/17/2018 2:19 lan of Care - Karen Mccann RN - 11/16/2018 1437 EDT Pt with elevated BS on admission. FS 266 this am. SSI (9 units) given per MAR. Levimir adjusted to 30 units BID. FS 322 at lunch. SSI + 10 units aspart (23 units total) given. Notified Provider of elevated BS. FYI 322 BS did not upload in chart. lan of Care - Karen Mccann, RN - 11/16/2018 1418 EDT Problem: Daily Care Plan Goals Goal: Care Plan Documentation 11/16/18 0745 Care Plan Focus Area of Focus Mobility Goal This Shift OOB Data: Patient admitted with LLL PNA and elevated BS. Patient with hx of b/l BKA. Pt 1A OOB with FWW and LE prothesis. Action: Encouraged patient to maximize mobility and educated on its benefits. Assisted patient OOB to chair and to bathroom. Response: Patient tolerated ambulation well with FWW. Will continue to encourage patient to maximizemobility. Karen Mccann RN 11/16/2018 14:17 aily Progress Note - Bienvenido King MD, MD - 11/16/2018 0700 EDT Medicine Progress Note Service Date: 11/16/2018 Admit Date: 11/15/2018 16:16 Reason for Admission: 63 y.o. male from [facility] for PNA and ANSELMO in setting of renal transplant and immunesuppression 24 Hour Events: -Admitted -Given azith/CTX --> doxy/CTX for PNA -Levimir 30units BID and 10u aspart mealtime for MDII -Afebrile,ANSELMO improving -Pending nephrology recs Subjective/Objective Subjective Feels well. NO cough, SOB, fevers, chills. No symptoms of systemic infection. Didn't sleep well overnight which he attributes to being in a new hospital. at bedside. All comfortable with plan for the day. Review of Systems Pertinent items are noted in Subjective/HPI Objective Vital Signs Temp: [35.8 ??C (96.4 ??F)-36.2 ??C (97.2 ??F)] (), Heart Rate: [59 BPM-65 BPM] (), Resp: [16] (), BP: (115-160)/(56-69) (), SpO2: [89 %-98 %] () Physical Exam General: Obese male lying in bed, intention tremor in head, neck and arms. Conversing appropraitely HEENT: Neck is tender to palpation, no cervical lymphadenopathy. Posterior oropharynx is erythematous with white plaques. Cardiovascular: RRR, no murmurs, rubs, gallops. Respiratory: nonlabored breathing, diffuse wheezing, no increased work of breathing. Abdomen: Obese, soft. Well healed scar on left side from renal transplant. No tenderness to palpation. Appropriate bowel movements. : No dixon Skin: Warm and dry. Extremities: Bilateral below knee amputations, well healed. Area of redness on lateral aspect of right knee, not tender to palpation. Is PICC or central line present? No, PICC/Central line not present. Medications Reviewed: Doxy D1 of 2 CTX D2 of 3 Levemir 30units BID Aspart 10u w/ meals [employer] tacro and mycophenolate Labs Reviewed. Tacrolimus trough 6 (however, pt had missed 1.5 days of tacrolimus prior to transfer so is not at steady state) Imaging Reviewed Assessment/Plan Assessment Leroy Dailey is a 63 y.o. male with a PMHx significant for PVD s/p bilateral BKA, CAD, Type 2 diabetes, CKD s/p left renal transplant on mycophenolate and tacrolimus, COPD who presents as a transfer, initially presented to [facility] with fever, chills, shortness of breath found to be due to left lower lobe pneumonia. Patient has been treated with doxycycline and aztreonam in setting of recent hospitalization and suspicion for HAP. Additionally, patient presented with ANSELMO in setting of CKD, with suspicion for tacrolimus toxicity. Patient has been transferred to [facility] for further management due to his renal transplant. Now stable on CAP therapy with Doxy and CTX. Renal transplant team following. ?? Plan ?? Pneumonia Febrile at [facility], now afebrile. CXR there with LLL consolidation. Of note patient is immunocompromised due to tacrolimus and per transfer records he has be hospitalized with in the past 2 months. At [facility] was on doxycycline and aztreonam due to suspicion for HAP, but presentation is more consistent withCAP. - hold azith - continue ceftriaxone - restart doxy - plan for 7 days total of CAP coverage - started ABX on 11/12 -tylenol 650mg q6hr PRN - monitor CBC and fever curve ?? ANSELMO on CKD, s/p left renal transplant (2007): Cr 2.4 today Admitted with Cr 2.7 at [facility], from baseline 1.8-1.9. On mycophenolate and tacrolimus, question of whether ANSELMO may be due to tacrolimus toxicity vs prerenal given lack of improvement with IVF. Voiding without problem. - Transplant nephrology consult - [employer] tacrolimus 1mg BID and mycophenolate 500mg BID - daily tacrolimus trough, per nephro - daily lytes - daily creatine - hold losartan ?? Type II Diabetes: reportedly required insulin drip then became hypoglycemic at [facility] - hemoglobin A1c ordered - Insulin levemir 30 units BID, - aspart 10u w/ meals plus SSI - carb consistent diet - POCT glucose ?? Atrial fibrillation AT [facility], found to be in a-fib, resolved. Anticoagulation there held pending discussions with nephrology/cardiology. Not currently requiring rate control. -Class III Telemetry ?? CAD Reports worsening chest pressure and dyspnea on exertion in setting of recent pneumonia. Per chart review, patient has history of CAD on aspirin and atorvastatin. No history of CA. Troponins negative at [facility]. 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 COPD Albuterol and stiolto respimat at home. Not on home O2, saturating appropriately on room air. Reports increased shortness of breath in past few days in setting of pneumonia. -Albuterol PRN -Montelukast 10 mg daily -Spiriva 18 mcg daily ?? HTN Hold losartan 25 mg in setting of ANSELMO. BP on admission elevated to 160/69. -continue nifedipine 30 mg ?? Oral thrush in setting of immunosuppression Throat is erythematous with white plaque, reports sore throat. -Nystatin swish and swallow VTE Prophylaxis Pharmacologic Prophylaxis: Heparin 5000 units SQ Bid Discharge Plan Home or self care Consults Nephrology Kimo Bourgeois MD 11/16/2018 7:01 Attending Attestation I interviewed and examined the patient and personally reviewed laboratory studies, radiographic studies, and medical records. I discussed the case with the Medicine residents and agree with history, exam, assessment and plan of care as documented in the note above (with edits in Green). Date of Service: 11/16/2018 Bienvenido King MD Internal Medicine Hospitalist lan of Care - Aris Owusu RN - 11/16/2018 0223 EDT Problem: Daily Care Plan Goals Goal: Care Plan Documentation Outcome: Ongoing 11/15/18 2147 Care Plan Focus Area of Focus Sleep Goal This Shift pt will sleep overnight Data: Pt verbalized interest in sleeping beginning this shifty, O2 Sat 89-92 while sleeping Action: 2LO2 given via NC, care clustered & quiet environment promoted Response: Pt is quietly sleeping at this time, will monitor Aris Owusu RN 11/16/2018 2:20 lan of Care - Monae Amado, SHEILA - 11/15/2018 1707 EDT Problem: Daily Care Plan Goals Goal: Care Plan Documentation Outcome: Met This Shift 11/15/18 1600 Care Plan Focus Area of Focus Communication Goal This Shift admit pt this shift Data: Pt arrived to [place] [id number] from outside hospital for pneumonia. A&Ox3, VSS, voiding, bilateral BKA, tele, SL, CG assist. Pt reports 1/10 pain. BP (!) 160/69 (BP Cuff Location: Right arm, Patient Position: Sitting) Temp 36.2 ??C (97.2 ??F) (Tympanic) Resp 16 SpO2 97% Action: Oriented pt to unit and room, instructed in call villarreal use and bed controls, reviewed menu and how to order meals. Medicated for pain (see eMAR), assisted pt to reposition and applied ice. Response: Pt verbalizes understanding and demonstrates ability to use call villarreal appropriately. PT resting comfortably, call villarreal in reach. Will continue to monitor. documented in this encounter Plan of Treatment Scheduled Referrals Name Type Priority Associated Diagnoses Order S chedule AMB CONS/FOLLOW UP Outpatient Referral Routine Renal transplan t, Ordered: PRIMARY CARE status post 11/17/2018 PHYSICIAN Acute kidney injury (HCC-CMS) Community acquired pneumonia of left lower lobe of lung (HCC-CMS) documented as of this encounter Procedures Procedure Name Priority Date/Time Associated Comments Diagnosis ECG REPORT - SCANNED 11/23/2018 8:17 EDT ECG REPORT - SCANNED 11/21/2018 9:20 EDT ECG REPORT - SCANNED 11/21/2018 9:20 EDT GLUCOSE, GLUCOMETER Routine 11/17/2018 12:41 Resu lts for this EDT procedure are i n the results section. GLUCOSE, GLUCOMETER Routine 11/17/2018 7:41 Resul ts for this EDT procedure are i n the results section. COMPLETE BLOOD COUNT Routine 11/17/2018 6:07 Resu lts for this EDT procedure are i n the results section. BUN Routine 11/17/2018 6:07 Results for this EDT procedure are i n the results section. CREATININE Routine 11/17/2018 6:07 Results for this EDT procedure are i n the results section. ELECTROLYTES Routine 11/17/2018 6:07 Results for this EDT procedure are i n the results section. GLUCOSE, GLUCOMETER Routine 11/16/2018 20:26 Resu lts for this EDT procedure are i n the results section. GLUCOSE, GLUCOMETER Routine 11/16/2018 17:36 Resu lts for this EDT procedure are i n the results section. INPATIENT ADD-ON Routine 11/16/2018 9:35 Results for this EDT procedure are i n the results section. GLUCOSE, GLUCOMETER Routine 11/16/2018 8:38 Resul ts for this EDT procedure are i n the results section. TACROLIMUS ([id number]) Routine 11/16/2018 8:25 Result s for this EDT procedure are i n the results section. PROTIME Routine 11/16/2018 8:25 Results for this EDT procedure are i n the results section. COMPLETE BLOOD COUNT Routine 11/16/2018 8:25 Resu lts for this AND DIFFERENTIAL EDT procedure a re in the results section. BUN Routine 11/16/2018 8:25 Results for this EDT procedure are i n the results section. ALT Routine 11/16/2018 8:25 Results for this EDT procedure are i n the results section. AST Routine 11/16/2018 8:25 Results for this EDT procedure are i n the results section. PHOSPHORUS Routine 11/16/2018 8:25 Results for this EDT procedure are i n the results section. ALKALINE PHOSPHATASE Routine 11/16/2018 8:25 Resu lts for this EDT procedure are i n the results section. MAGNESIUM Routine 11/16/2018 8:25 Results for this EDT procedure are i n the results section. HEMOGLOBIN A1C Routine 11/16/2018 8:25 Results fo r this EDT procedure are i n the results section. CREATININE Routine 11/16/2018 8:25 Results for this EDT procedure are i n the results section. CALCIUM Routine 11/16/2018 8:25 Results for this EDT procedure are i n the results section. BILIRUBIN, TOTAL Routine 11/16/2018 8:25 Results for this EDT procedure are i n the results section. ELECTROLYTES Routine 11/16/2018 8:25 Results for this EDT procedure are i n the results section. STREPTOCOCCUS Routine 11/15/2018 22:50 Results fo r this PNEUMONIAE ANTIGEN, EDT procedur e are in URINE the results section. LEGIONELLA ANTIGEN Routine 11/15/2018 22:50 Resul ts for this DETECTION, URINE EDT procedure a re in the results section. GLUCOSE, GLUCOMETER Routine 11/15/2018 20:35 Resu lts for this EDT procedure are i n the results section. EKG 12-LEAD Routine 11/15/2018 20:05 Results for this EDT procedure are i n the results section. GLUCOSE, GLUCOMETER Routine 11/15/2018 18:10 Resu lts for this EDT procedure are i n the results section. documented in this encounter Results (ABNORMAL) GLUCOSE, GLUCOMETER (11/17/2018 12:41 EDT) Glucose, 204 (H) 70 - 100 [facility] Fingerstick mg/dl LABORATORY SERVICES Rn Homecare ID [id number]: [facility] Test Performed by LABORATORY Nursing Services SERVICES Specimen Blood Performing Organization Address City/[facility]/ZIP Code Phon e Number [facility] LABORATORY [address] [place] [address] SERVICES (ABNORMAL) GLUCOSE, GLUCOMETER (11/17/2018 7:41 EDT) Glucose, 181 (H) 70 - 100 [facility] Fingerstick mg/dl LABORATORY SERVICES Rn Homecare ID [id number]: [facility] Test Performed by LABORATORY Nursing Services SERVICES Specimen Blood Performing Organization Address City/[facility]/[place]IP [facility] [place] Number [facility] LABORATORY [address] [place] [address] SERVICES (ABNORMAL) COMPLETE BLOOD COUNT (11/17/2018 6:07 EDT) Pathologist Sig nature WBC 5.43 4.0 - 10.4 K/cmm [facility] LABORATORY SERVICES RBC 3.43 (L) 4.36 - 5.78 M/cmm [facility] LABORATORY SERVICES Hemoglobin 10.5 (L) 13.8 - 17.3 gm/dl [facility] LABORATORY SERVICES HCT 32.4 (L) 39.5 - 50.2 % [facility] LABORATORY SERVICES MCV 95 81 - 95 fl [facility] LABORATORY SERVICES MCH 30.6 27.6 - 33.0 pg [facility] LABORATORY SERVICES MCHC 32.4 (L) 32.8 - 36.4 gm/dl [facility] LABORATORY SERVICES RDW-CV 14.3 (H) <14.2 % [facility] LABORATORY SERVICES RDW-SD 49.2 (H) <46.0 fl [facility] LABORATORY SERVICES PLT 212 141 - 377 K/cmm [facility] LABORATORY SERVICES MPV 8.5 (L) 9.5 - 12.7 fl [facility] LABORATORY SERVICES Specimen Blood specimen (specimen) - Blood Performing Organization Address City/State/ZIP Code Phon e Number [facility] LABORATORY [address] [place] [address] SERVICES (ABNORMAL) CREATININE (11/17/2018 6:07 EDT) Creatinine 2.12 (H) 0.66 - 1.25 [facility] mg/dl LABORATORY SERVICES GFR, Calculated 32 (L) >60 [facility] Comment: ml/min/1.73m2 LABORATORY eGFR calculated using CKD-EPI equation for SERVICES non Americans. Multiply eGFR by 1.16 for Americans. Specimen Blood specimen (specimen) - Blood Performing Organization Address City/State/ZIP Code Phon e Number [facility] LABORATORY [address] [place] [address] SERVICES (ABNORMAL) BUN (11/17/2018 6:07 EDT) Pathologist Sig nature BUN 54 (H) 10 - 26 mg/dl [facility] LABORATO RY SERVICES Specimen Blood specimen (specimen) - Blood Performing Organization Address City/State/ZIP Code Phon e Number [facility] LABORATORY [address] [place] [address] SERVICES (ABNORMAL) ELECTROLYTES (11/17/2018 6:07 EDT) Pathologist Sig nature Sodium 141 136 - 145 mEq/L [facility] LABORA TORY SERVICES Potassium 4.7 3.5 - 5.0 mEq/L [facility] LABORA TORY SERVICES Chloride 112 (H) 96 - 110 mEq/L [facility] LABORAT ORY SERVICES CO2 21 (L) 22 - 32 mEq/L [facility] LABORATO RY SERVICES Specimen Blood specimen (specimen) - Blood Performing Organization Address City/[facility]/ZIP Code Phon e Number [facility] LABORATORY [address] [place] [address] SERVICES (ABNORMAL) GLUCOSE, GLUCOMETER (11/16/2018 20:26 EDT) Glucose, 237 (H) 70 - 100 [facility] Fingerstick mg/dl LABORATORY SERVICES Rn Homecare ID [id number]: [facility] Test Performed by LABORATORY Nursing Services SERVICES Specimen Blood Performing Organization Address City/[facility]/[place]IP [facility] [place]on [place] Number [facility] LABORATORY [address] [place] [address] SERVICES (ABNORMAL) GLUCOSE, GLUCOMETER (11/16/2018 17:36 EDT) Glucose, 218 (H) 70 - 100 [facility] Fingerstick mg/dl LABORATORY SERVICES Rn Homecare ID [id number]: [facility] Test Performed by LABORATORY Nursing Services SERVICES Specimen Blood Performing Organization Address [facility]/ZIP Code Phon e Number [facility] LABORATORY [address] [place] [address] SERVICES INPATIENT ADD-ON (11/16/2018 9:35 EDT) Pathologist Sig nature Tests to be added CALCIUM [facility] LABORATORY SERVICES Number for problems [id number] [facility] LABORATORY SERVICES Accession number [id number] [facility] LABORATORY SERVICES Specimen Other Performing Organization Address City/[facility]/ZIP [facility] Phon e Number [facility] LABORATORY [address] [place] [address] SERVICES (ABNORMAL) GLUCOSE, GLUCOMETER (11/16/2018 8:38 EDT) Glucose, 266 (H) 70 - 100 [facility] Fingerstick mg/dl LABORATORY SERVICES Rn Homecare ID [id number]: [facility] Test Performed by LABORATORY Nursing Services SERVICES Specimen Blood Performing Organization Address City/[facility]/ZIP Code Phon e Number [facility] LABORATORY [address] [place] [address] SERVICES CALCIUM (11/16/2018 8:25 EDT) Pathologist Sig nature Calcium 9.5 8.5 - 10.5 mg/dl [facility] LABORATORY SERVICES Calculated Calcium 10.1 8.5 - 10.5 mg/dl [facility] LABORATORY SERVICES Specimen Blood Performing Organization Address [facility] Phon e Number [facility] LABORATORY [address] [place] [address] SERVICES (ABNORMAL) CREATININE (11/16/2018 8:25 EDT) Creatinine 2.40 (H) 0.66 - 1.25 [facility] mg/dl LABORATORY SERVICES GFR, Calculated 27 (L) >60 [facility] Comment: ml/min/1.73m2 LABORATORY eGFR calculated using CKD-EPI equation for SERVICES non Americans. Multiply eGFR by 1.16 for Americans. Specimen Blood specimen (specimen) - Blood Performing Organization Address [facility] Phon e Number [facility] LABORATORY [address] [place] [address] SERVICES (ABNORMAL) BUN (11/16/2018 8:25 EDT) Pathologist Sig nature BUN 49 (H) 10 - 26 mg/dl [facility] LABORATO RY SERVICES Specimen Blood specimen (specimen) - Blood Performing Organization Address [facility] Phon e Number [facility] LABORATORY [address] [place] [address] SERVICES (ABNORMAL) ELECTROLYTES (11/16/2018 8:25 EDT) Pathologist Sig nature Sodium 138 136 - 145 mEq/L [facility] LABORA TORY SERVICES Potassium 5.1 (H) 3.5 - 5.0 mEq/L [facility] LABORA TORY SERVICES Chloride 108 96 - 110 mEq/L [facility] LABORAT ORY SERVICES CO2 20 (L) 22 - 32 mEq/L [facility] LABORATO RY SERVICES Specimen Blood specimen (specimen) - Blood Performing Organization Address [facility] Phon e Number [facility] LABORATORY [address] [place] [address] SERVICES TACROLIMUS ([id number]) (11/16/2018 8:25 EDT) Tacrolimus 6.0 ng/ml [facility] Comment: LABORATORY SERVICES Therapeutic range dependent upon clinical situation. Assayed using [employer] Chemiluminescent technology. ??Values obtained by using different assay methods cannot be used interchangeably. Specimen Blood specimen (specimen) - Blood Performing Organization Address [facility]/ZIP Code Phon e Number [facility] LABORATORY [address] [place] [address] SERVICES (ABNORMAL) PHOSPHORUS (11/16/2018 8:25 EDT) Pathologist Sig nature Phosphorus 4.6 (H) 2.5 - 4.5 mg/dl [facility] LABORATORY SERVICES Specimen Blood specimen (specimen) - Blood Performing Organization Address [facility]/[place]IP [facility] Phon [place] Number [facility] LABORATORY [address] [place] [address] SERVICES MAGNESIUM (11/16/2018 8:25 EDT) Pathologist Sig nature Magnesium 2.0 1.7 - 2.8 mg/dl [facility] LABORA TORY SERVICES Specimen Blood specimen (specimen) - Blood Performing Organization Address [facility] Phon e Number [facility] LABORATORY [address] [place] [address] SERVICES PROTIME (11/16/2018 8:25 EDT) Pro Time 13.1 10.3 - 13.4 [facility] secs LABORATORY SERVICES I.N.R. 1.1 0.9 - 1.1 [facility] Comment: Ratio LABORATORY SERVICES Moderate Intensity Coumadin INR = 2.0-3.0 Adjustments in anticoagulant therapy dose should be based upon the INR and NOT the Pro Time. Specimen Blood specimen (specimen) - Blood Performing Organization Address [facility] Phon e Number [facility] LABORATORY [address] [place] [address] SERVICES (ABNORMAL) COMPLETE BLOOD COUNT AND DIFFERENTIAL (11/16/2018 8:25 EDT) Pathologist Sig nature WBC 5.82 4.0 - 10.4 [facility] K/[facility] LABORATORY SERVICES RBC 3.49 (L) 4.36 - 5.78 [facility] M/[facility] LABORATORY SERVICES Hemoglobin 10.7 (L) 13.8 - 17.3 [facility] gm/dl LABORATORY SERVICES HCT 33.2 (L) 39.5 - 50.2 % [facility] LABORATORY SERVICES MCV 95 81 - 95 fl [facility] LABORATORY SERVICES MCH 30.7 27.6 - 33.0 pg [facility] LABORATORY SERVICES MCHC 32.2 (L) 32.8 - 36.4 [facility] gm/dl LABORATORY SERVICES RDW-CV 14.6 (H) <14.2 % [facility] LABORATORY SERVICES RDW-SD 50.4 (H) <46.0 fl [facility] LABORATORY SERVICES PLT 212 141 - 377 K/[facility] LABORATORY SERVICES MPV 8.8 (L) 9.5 - 12.7 fl [facility] LABORATORY SERVICES Neutrophils 48.9 % [facility] LABORATORY SERVICES Lymphocytes 34.0 % [facility] LABORATORY SERVICES Monocytes 11.0 % [facility] LABORATORY SERVICES Eosinophils 4.8 % [facility] LABORATORY SERVICES Basophils 1.0 % [facility] LABORATORY SERVICES Immature Grans 0.3 % [facility] LABORATORY SERVICES ABS Neutrophils 2.84 2.20 - 8.85 [facility] K/[facility] LABORATORY SERVICES ABS Lymphs 1.98 1.09 - 3.30 [facility] LABORATORY SERVICES ABS Monocytes 0.64 0.1 - 0.8 K/[facility] LABORATORY SERVICES ABS Eosinophils 0.28 0.03 - 0.61 [facility] K/[facility] LABORATORY SERVICES ABS Basophils 0.06 0.01 - 0.11 [facility] LABORATORY SERVICES ABS Immature Grans 0.02 0 - 0.06 /[facility] LABORATORY SERVICES Type of Diff: Automated [facility] LABORATORY SERVICES Specimen Blood specimen (specimen) - Blood Performing Organization Address [facility]/[place]IP [facility] Ph[place] e Number [facility] LABORATORY [address] [place] [phone] SERVICES BILIRUBIN, TOTAL (11/16/2018 8:25 EDT) Pathologist Sig nature Bilirubin, Total <0.5 <1.4 mg/dl [facility] LABOR ATORY SERVICES Specimen Blood specimen (specimen) - Blood Performing Organization Address City/[facility]/[place]IP [facility] Ph[place] Number [facility] LABORATORY [address] [place] [address] SERVICES ALKALINE PHOSPHATASE (11/16/2018 8:25 EDT) Pathologist Sig nature Total Alkaline 109 38 - 126 U/L [facility] Phosphatase LABORATORY SERVICES Specimen Blood specimen (specimen) - Blood Performing Organization Address City/State/[place] [facility] Phon [place] Number [facility] LABORATORY [address] [place] [address] SERVICES AST (11/16/2018 8:25 EDT) Pathologist Sig nature AST 16 15 - 46 U/L [facility] LABORATOR Y SERVICES Specimen Blood specimen (specimen) - Blood Performing Organization Address [facility] Phon e Number [facility] [address] [place] [address] SERVICES ALT (11/16/2018 8:25 EDT) Pathologist Sig nature ALT 23 21 - 72 U/L [facility] Y SERVICES Specimen Blood specimen (specimen) - Blood Performing Organization Address [facility] Phon e Number [facility] [address] [place] [address] SERVICES HEMOGLOBIN A1C (11/16/2018 8:25 EDT) Hemoglobin A1C 7.8 % [facility] Comment: LABORATORY SERVICES Reference Range: <5.7% Normal 5.7-6.4% Prediabetes =>6.5% Diagnostic for diabetes (if confirmed) Goals for glycemic control in diabetes ADA 2017 For non adults with diabetes: ?? Target <7.0% For children and adolescents with type 1 diabetes: ?? Target <7.5% More or less stringent targets may be appropriate for individual patients. Est Avg Glucose 177 mg/dl [facility] Comment: LABORATORY SERVICES eAG represents the A1c result expressed as average glucose in mg/dl. Specimen Blood specimen (specimen) - Blood Performing Organization Address [facility] Phon e Number [facility] [address] [place] [address] SERVICES STREPTOCOCCUS PNEUMONIAE ANTIGEN, URINE (11/15/2018 22:50 EDT) Pathologist Sig nature Result No Strep pneumoniae [facility] antigen detected. LABORATORY SERVICES Specimen Other (qualifier value) - Urine Performing Organization Address [facility] Phon e Number [facility] [address] [place] [address] SERVICES LEGIONELLA ANTIGEN DETECTION, URINE (11/15/2018 22:50 EDT) Pathologist Sig nature Result No Legionella [facility] pneumophila serogroup LABORATORY SERVICES 1 antigen detected. Specimen Other (qualifier value) - Urine Performing Organization Address [facility]/[place] [facility] Phon [place] Number [facility] [address] [place] [address] SERVICES (ABNORMAL) GLUCOSE, GLUCOMETER (11/15/2018 20:35 EDT) Glucose, 228 (H) 70 - 100 [facility] Fingerstick mg/dl LABORATORY SERVICES Rn Homecare ID [id number]: [facility] Test Performed by LABORATORY Nursing Services SERVICES Specimen Blood Performing Organization Address City/State/ZIP Code Phon e Number [facility] [address] [place] [address] SERVICES EKG 12-LEAD (11/15/2018 20:05 EDT) Specimen Narrative [facility] EKG - 11/23/2018 8:12 EDT ? [facility] ? Test Date: ?2018-11-15 Pat Name: ? LEROY DAILEY ? Department: ?? Ashok 3 ? Room: ? B327 Gender: ? Male ? Rose Grower: ?? : ?1955 ? Requested By: FEDERICO PICKARD Order Number: [id number] ? Jens HAWK: ?? DEVIN NOGUEIRA MD ? Measurements Intervals ?[place] ? Rate: ? 65 ? P: ?69 ME: ? 282 ?QRS: ?-20 QRSD: ? 116 ?T: ?15 QT: ? 409 ? QTc: ?425 ? Interpretive Statements SINUS RHYTHM WITH FIRST DEGREE AV BLOCK MODERATE INTRAVENTRICULAR CONDUCTION DEL AY No previous ECG available for comparison I reviewed the tracing and have either a greed or edited the findings in this report. Electronically Signed On 8:12:44 EDT by DEVIN NOGUEIRA MD. Procedure Note Devin Nogueira MD - 11/23/2018 [facility] Test Date: 2018-11-15 Pat Name: LEROY DAILEY Department: [facility] 3 Room: B327 Gender: Male Rose Grower: : 1955 Requested By: FEDERICO HEBERT Order Number: [id number] Jens MD: Ofelia NOGUEIRA MD Measurements Intervals [place] Rate: 65 P: 69 ME: 282 QRS: -20 QRSD: 116 T: 15 QT: 409 QTc: 425 Interpretive Statements SINUS RHYTHM WITH FIRST DEGREE AV BLOCK MODERATE INTRAVENTRICULAR CONDUCTION DEL AY No previous ECG available for comparison I reviewed the tracing and have either a greed or edited the findings in this report. Electronically Signed On 8:12:44 EDT by DEVIN NOGUEIRA MD. Performing Organization Address City/State/ZIP Code Phon e Number [facility] EKG (ABNORMAL) GLUCOSE, GLUCOMETER (11/15/2018 18:10 EDT) Glucose, 204 (H) 70 - 100 [facility] Fingerstick mg/dl LABORATORY SERVICES Rn Homecare ID [id number]: [facility] Test Performed by LABORATORY Nursing Services SERVICES Specimen Blood Performing Organization Address City/State/ZIP Code Phon e Number [facility] [address] [place] [address] SERVICES documented in this encounter Visit Diagnoses Diagnosis Community acquired pneumonia of left low er lobe of lung - Primary Elevated random blood glucose level Other abnormal glucose Renal transplant, status post Acute kidney injury ([facility]) (HCC) Acute kidney failure, unspecified documented in this encounter Administered Medications Inactive Administered Medications - up to 3 most recent administrations Medication Order MAR Action Action Date Dose Rate Site acetaminophen (TYLENOL) tablet 650 Given 11/17/2018 12:43 EDT 65 0 mg mg 650 mg, oral, EVERY 6 HOURS, First dose (after last modification) on Tue11/15/18 at 1800, Until Discontinued, Routine Given 11/17/2018 6:04 EDT 650 mg Given 11/17/2018 1:00 EDT 650 mg aluminum & magnesium hydroxide-simethicone Given 11/15/2018 18:1 3 EDT 15 mL (MYLANTA-DS) 400-400-40 mg/5 mL suspensi on 15 mL 15 mL, oral, NOW X1, 1 dose, On Tue11/15/18 at 1745, Routine aspirin EC tablet 81 mg Given 11/17/2018 10:11 EDT 81 mg 81 mg, oral, DAILY, First dose on Tue11/16/18 at 0900, Until Discontinued, Routine Given 11/16/2018 9:15 EDT 81 mg atorvastatin (LIPITOR) tablet 20 mg Given 11/17/2018 3:00 EDT 20 mg 20 mg, oral, DAILY, First dose on Tue11/16/18 at 0900, Until Discontinued, Routine Given 11/16/2018 9:15 EDT 20 mg azithromycin (ZITHROMAX) tablet 250 mg Given 11/16/2018 9:14 EDT 250 mg 250 mg, oral, DAILY, 3 doses, First dose on Tue11/15/18 at 1930, Last dose on Tue11/17/18 at 0900, Routine Given 11/15/2018 20:36 EDT 250 mg cefTRIAXone (ROCEPHIN) 1,000 mg in sodium Given 11/17/2018 10:13 EDT 1,000 mg chloride (NS MBP) 50 mL IVPB 1,000 mg, intravenous, Administer over 30 Minutes, DAILY, 4 doses, First dose on Tue11/15/18 at 1930, Last dose on Tue11/18/18 at 0900, Routine Given 11/16/2018 9:15 EDT 1,000 mg Given 11/15/2018 20:37 EDT 1,000 mg dextrose 50 % solution 12.5 g 12.5 g (25 mL), intravenous, PRN, Starting on 11/15 at 1728, Until Tue11/17/18 at 1618, Low Blood Sugar, Routine doxycycline (VIBRA-TABS) tablet 100 mg Given 11/17/2018 10:11 EDT 100 mg 100 mg, oral, EVERY 12 HOURS, 4 doses, First dose on Tue11/16/18 at 1215, Last dose on Tue11/17/18 at 2100, Routine Given 11/16/2018 20:18 EDT 100 mg Given 11/16/2018 12:44 EDT 100 mg gabapentin (NEURONTIN) capsule 300 mg Given 11/17/2018 10:11 EDT 300 mg 300 mg, oral, 2 TIMES DAILY, First dose (after last modification) on Tue11/16/18 at 0900, Until Discontinued, Routine Given 11/16/2018 20:19 EDT 300 mg Given 11/16/2018 9:14 EDT 300 mg glucagon injection 1 mg 1 mg, intramuscular, PRN, Starting on Tue11/15/18 at 1 728, Until Tue11/17/18 at 1618, Low blood sugar, Routine heparin injection 5,000 Units Given 11/17/2018 10:11 EDT 5,000 Units 5,000 Units, subcutaneous, EVERY 8 HOURS, First dose on Tue11/15/18 at 1730, Until Discontinued, Routine Given 11/17/2018 1:00 EDT 5,000 Units Given 11/16/2018 16:33 EDT 5,000 Units insulin aspart U-100 (NOVOLOG FLEXPEN) Given 11/17/2018 12:47 ED T 10 Units injection 10 Units 10 Units, subcutaneous, 3 TIMES DAILY WITH MEALS, First dose on Tue11/16/18 at 1200, Until Discontinued, Routine Given 11/17/2018 7:52 EDT 10 Units Given 11/16/2018 17:43 EDT 10 Units insulin aspart U-100 (NOVOLOG FLEXPEN) Given 11/17/2018 12:46 ED T 5 Units injection subcutaneous, 3 TIMES DAILY WITH MEALS, First dose on Tue11/16/18 at 0800, Until Discontinued, Routine Given 11/17/2018 7:50 EDT 5 Units Given 11/16/2018 17:47 EDT 7 Units insulin detemir U-100 (LEVEMIR) injection 30 Given 21:49 EDT 30 Units Units 30 Units, subcutaneous, AT BEDTIME, First dose (after last modification) on Tue11/15/18 at 2100, Until Discontinued, Routine insulin detemir U-100 (LEVEMIR) injection 30 Given 10:41 EDT 30 Units Units 30 Units, subcutaneous, 2 TIMES DAILY L.A. INSULIN, First dose (after last modification) on Tue11/16/18 at 1030, Until Discontinued, Routine Given 11/16/2018 20:29 EDT 30 Units Given 11/16/2018 11:04 EDT 30 Units lidocaine (XYLOCAINE) 2 % viscous soluti on 15 mL Given 11/15/2018 18:12 EDT 15 mL 15 mL, oral, NOW X1, 1 dose, On Tue11/15/18 at 1745, Routine montelukast (SINGULAIR) tablet 10 mg Given 11/16/2018 20:18 EDT 10 mg 10 mg, oral, AT BEDTIME, First dose on Tue11/15/18 at 2100, Until Discontinued, Routine Given 11/15/2018 20:37 EDT 10 mg mycophenolate (CELLCEPT) capsule 500 mg Given 11/17/2018 10:39 EDT 500 mg 500 mg, oral, 2 TIMES DAILY, First dose on Tue11/16/18 at 0900, Until Discontinued, Routine Given 11/16/2018 20:18 EDT 500 mg Given 11/16/2018 9:15 EDT 500 mg NIFEdipine ER (ADALAT CC) tablet 30 mg Given 11/16/2018 20:18 EDT 30 mg 30 mg, oral, AT BEDTIME, First dose on Tue11/15/18 at 2100, Until Discontinued, Routine Given 11/15/2018 20:36 EDT 30 mg nystatin (MYCOSTATIN) suspension 500,000 Given 019 12:43 EDT 500,000 Units Units 500,000 Units, swish and swallow, 4 TIMES DAILY, 28 doses, First dose on Tue11/15/18 at 2100, Last dose on Tue11/22/18 at 1700, Routine Given 11/17/2018 10:11 EDT 500,000 Units Given 11/16/2018 20:18 EDT 500,000 Units pantoprazole (PROTONIX) tablet 40 mg Given 11/17/2018 10:11 EDT 40 mg 40 mg, oral, DAILY, First dose on Tue11/16/18 at 0900, Until Discontinued Given 11/16/2018 9:14 EDT 40 mg sodium chloride 0.9 % (NS) Rate Documented 11/16/2018 19:29 EDT 2,0 00 mL 30 mL/hr infusion at 30 mL/hr, 2,000 mL, intravenous, CONTINUOUS, Starting on Tue11/16/18 at 1530, Until Tue11/17/18 at 0949, Routine New Bag 11/16/2018 16:33 EDT 1,000 mL 30 mL/hr tacrolimus (PROGRAF) capsule 0.5 mg Given 11/16/2018 20:18 EDT 0.5 mg 0.5 mg, oral, EVERY EVENING, First dose on Tue11/16/18 at 2000, Until Discontinued, Routine tacrolimus (PROGRAF) capsule 1 mg Given 11/16/2018 9:14 EDT 1 mg 1 mg, oral, 2 TIMES DAILY TRANSPLANT, First dose (after last reorder) on Tue11/15/18 at 2000, Until Discontinued, Routine Given 11/15/2018 21:48 EDT 1 mg tacrolimus (PROGRAF) capsule 1 mg Given 11/17/2018 10:40 EDT 1 mg 1 mg, oral, DAILY, First dose on Tue11/17/18 at 0800, Until Discontinued, Routine tiotropium (SPIRIVA) 18 mcg inhalation capsule Given 0 11/17/2018 10:40 EDT 18 mcg 18 mcg 18 mcg, inhalation, DAILY, First dose on Lucie 11/16/18 at 0900, Until Discontinued, Routine Given 11/16/2018 9:15 EDT 18 mcg documented in this encounter Discontinued Medications Medication Sig Discontinue Reason Start Date End Date tacrolimus (PROGRAF) 1 mg Take by mouth 2 Dose adjustment 11/16/2018 capsule times daily. losartan (COZAAR) 25 mg Take 12.5 mg by 0 11/17/2018 tablet mouth daily. documented as of this encounter Historical Medications This list may reflect changes made after this encounter. Medication Sig Dispensed Refills Start Date End Date tacrolimus (PROGRAF) 0.5 Take 0.5 mg by 0 mg capsule mouth. Take 2 capsules (1mg) in am and 1 capsule (0.5mg) in PM atorvastatin (LIPITOR) 10 Take 20 mg by mouth 0 mg tablet daily. insulin detemir U-100 Inject 50 Units into 0 (LEVEMIR) 100 unit/mL the skin every injection morning. insulin detemir U-100 Inject 80 Units into 0 (LEVEMIR) 100 unit/mL the skin at bedtime. injection tiotropium-olodaterol Inhale as directed. 0 (STIOLTO RESPIMAT) 2.5-2.5 mcg/actuation inhaler albuterol 90 Inhale 2 puffs as 0 mcg/actuation inhaler directed every 6 hours as needed for Wheezing. fluticasone propionate Instill 100 mcg into 0 (FLONASE) 50 both nostrils 2 mcg/actuation nasal spray times daily. cholecalciferol, Vitamin Take 2,000 Units by 0 D3, 1,000 unit tablet mouth daily. gabapentin (NEURONTIN) Take 900 mg by mouth 0 300 mg capsule 3 times daily. Multivitamins with Take 1 tablet by 0 Minerals tablet tablet mouth daily. montelukast (SINGULAIR) Take 10 mg by mouth 0 10 mg tablet daily. omeprazole (PRILOSEC) 20 Take 40 mg by mouth 0 mg capsule daily. aspirin 81 mg EC tablet Take 81 mg by mouth 0 daily. glucagon 1 mg recon soln Inject 1 mg into the 0 injection muscle as needed. liraglutide (VICTOZA Inject 0.6 mg into 0 2-FAZAL) 0.6 mg/0.1 mL (18 the skin daily. mg/3 mL) injectable pen insulin lispro (HUMALOG) Inject into the skin 0 100 unit/mL vial 3 times daily before meals. folic acid (FOLVITE) 1 mg Take 1 mg by mouth 0 tablet daily. mycophenolate (CELLCEPT) Take 500 mg by mouth 0 250 mg capsule 2 times daily. losartan (COZAAR) 25 mg Take 12.5 mg by 0 11/17/2018 tablet mouth daily. tacrolimus (PROGRAF) 1 mg Take by mouth 2 0 11/16/2018 capsule times daily. added in this encounter Active and Recently Administered Medications Times are shown in EDT. Scheduled Medication Order 11/15/2018 11/16/2018 11/17/2018 acetaminophen (TYLENOL) tablet 650 mg 1739 (Given - Pr ovider: Monae Amado, RN)2317 (Given - Provider: Aris Owusu, RN) 0609 (Given - Provider: Aris Owusu, SHEILA)1244 (Given - Provider: Karen Mccann, SHEILA)1751 (Given - Provider: Curt Singh, SHEILA) 0100 (Given - Provider: Nicky Salazar , SHEILA)0604 (Given - Provider: Nicky Salazar, SHEILA)1243 (Given - Provider: Chante Ponce, RN) 650 mg, oral, EVERY 6 HOURS, First dose on Tue11/15/18 at 1800, Until Discontinued, Routine aluminum & magnesium hydroxide-simethico ne (MYLANTA-DS) 400-400-40 mg/5 mL suspension 15 mL (COMPLETED) 1812 (Given - Provider: Monae Amado, SHEILA) 15 mL, oral, NOW X1, 1 dose, Tue11/15/18 at 1745, Routine aspirin EC tablet 81 mg 914 (Given - Provider: Karen Mccann, SHEILA) 101 (Given - Provider: Chante Ponce, SHEILA) 81 mg, oral, DAILY, First dose on Tue at 0900, Until Discontinued, Routine atorvastatin (LIPITOR) tablet 20 mg 914 (Given - Provider: Karen Mccann, SHEILA) 0300 (Given - Provider: Chante Ponce, RN) 20 mg, oral, DAILY, First dose on Tue at 0900, Until Discontinued, Routine azithromycin (ZITHROMAX) tablet 250 mg (CANCELED) 2035 (Given - Provider: Aris Owusu, RN) 0914 (Given - Provider: Karen Mccann, SHEILA) 250 mg, oral, DAILY, 3 doses, First dose on Tue11/15/18 at 1930, Last dose on Tue11/17/18 at 0900, Routine cefTRIAXone (ROCEPHIN) 1,000 mg in sodium chloride (NS MBP) 50 mL IVPB 2036 (Given - Provider: Aris Owusu RN) 914 (Given - Provider: Karen Mccann RN) 101 (Given - Provider: Chante Ponce, SHEILA) 1,000 mg, intravenous, Administer over 3 0 Minutes, DAILY, 4 doses, First dose on Tue11/15/18 at 1930, Last dose on Tue11/18/18 at 0900, Routine doxycycline (VIBRA-TABS) tablet 100 mg 1 (Given - Provider: Karen Mccann RN)2017 (Given - Provider: Nicky Salazar, SHEILA) 1011 (Given - Provider: Chante Ponce, SHEILA) 100 mg, oral, EVERY 12 HOURS, 4 doses, F irst dose on Tue11/16/18 at 1215, Last dose on Tue11/17/18 at 2100, Routine gabapentin (NEURONTIN) capsule 300 mg 04 07 (Given - Provider: Karen Mccann RN)2018 (Given - Provider: Nicky Salazar, SHEILA) 101 (Given - Provider: Chante Ponce, SHEILA) 300 mg, oral, 2 TIMES DAILY, First dose on Tue11/16/18 at 0900, Until Discontinued, Routine heparin injection 5,000 Units 173 (Given - Provider: Monae Amado, RN)2318 (Given - Provider: Aris Owusu, SHEILA) 0914 (Given - Provider: Karen Mccann, SHEILA)1633 (Given - Provider: Curt Singh RN) 0100 (Given - Provider: Nicky Salazar RN)1011 (Given - Provider: Chante Ponce, SHEILA)1600 (Canceled Entry - Provider: Batch Job User Admin - Comment: Automatically canceled at discontinue of medication order) 5,000 Units, subcutaneous, EVERY 8 HOURS , First dose on Tue11/15/18 at 1730, Until Discontinued, Routine insulin aspart U-100 (NOVOLOG FLEXPEN) injection 10 Units 1246 (Given - Provider: Karen Mccann, SHEILA)1743 (Given - Provider: Curt Singh, SHEILA) 0752 (Given - Provider: Iliana Molina, SHEILA)1247 (Given - Provider: Chante Ponce, RN) 10 Units, subcutaneous, 3 TIMES DAILY WI TH MEALS, First dose on Tue11/16/18 at 1200, Until Discontinued insulin aspart U-100 (NOVOLOG FLEXPEN) injection 0915 (Given - Provider: Karen Mccann RN)1246 (Given - Provider: Karen Mccann RN - Comment: [phone] (Given - Provider: Curt Singh, SHEILA) 0750 (Given - Provider: Iliana Molina, SHEILA)1246 (Given - Provider: Chante Ponce, SHEILA) subcutaneous, 3 TIMES DAILY WITH MEALS, First dose on Tue11/16/18 at 0800, Until Discontinued insulin detemir U-100 (LEVEMIR) injection 30 Units (CA NCELED) 2148 (Given - Provider: Aris Owusu, SHEILA) 30 Units, subcutaneous, AT BEDTIME, Firs t dose on Tue11/15/18 at 2100, Until Discontinued, Routine insulin detemir U-100 (LEVEMIR) injection 30 Units 110 (Given - Provider: Karen Mccann RN)2028 (Given - Provider: Nicky Salazar, SHEILA) 104 (Given - Provider: Chante Ponce, SHEILA) 30 Units, subcutaneous, 2 TIMES DAILY L. A. INSULIN, First dose on Tue11/16/18 at 1030, Until Discontinued, Routine lidocaine (XYLOCAINE) 2 % viscous solution 15 mL (COMP LETED) 1811 (Given - Provider: Monae Amado, RN) 15 mL, oral, NOW X1, 1 dose, Tue11/15/18 at 1745, Routine montelukast (SINGULAIR) tablet 10 mg 2036 (Given - Provider: Aris Owusu, SHEILA) 2017 (Given - Provider: Nicky Salazar, SHEILA) 10 mg, oral, AT BEDTIME, First dose on W ed 11/15/18 at 2100, Until Discontinued, Routine mycophenolate (CELLCEPT) capsule 500 mg 914 (Given - Provider: Karen Mccann RN)2017 (Given - Provider: Nicky Salazar RN) 1039 (Given - Provider: Chante Ponce RN) 500 mg, oral, 2 TIMES DAILY, First dose on Lucie 11/16/18 at 0900, Until Discontinued, Routine NIFEdipine ER (ADALAT CC) tablet 30 mg 2035 (Given - Provide r: Aris Owusu RN) 2017 (Given - Provider: Nicky Salazar RN) 30 mg, oral, AT BEDTIME, First dose on W ed 11/15/18 at 2100, Until Discontinued, Routine nystatin (MYCOSTATIN) suspension 500,000 Units 2037 (G iven - Provider: Aris Owusu RN) 914 (Given - Provider: Karen Mccann RN )1245 (Given - Provider: Karen Mccann RN)163 (Given - Provider: Curt Singh RN)2017 (Given - Provider: Nicky Salazar RN) 1011 (Given - Provider: Brynn Ricketts N)1243 (Given - Provider: Chante Ponce RN) 500,000 Units, swish and swallow, 4 TIME S DAILY, 28 doses, First dose on Tue11/15/18 at 2100, Last dose on Tue11/22/18 at 1700, Routine pantoprazole (PROTONIX) tablet 40 mg 913 (Given - Provider: Karen Mccann RN) 101 (Given - Provider: Chante Ponce RN) 40 mg, oral, DAILY, First dose on Tue11/16/18 at 0900, Until Dis continued tacrolimus (PROGRAF) capsule 0.5 mg 2017 (Given - Provider: Nicky Salazar RN) 0.5 mg, oral, EVERY EVENING, First dose on Tue11/16/18 at 2000, Until Discontinued, Routine tacrolimus (PROGRAF) capsule 1 mg (CANCELED) 2147 (Giv en - Provider: Aris Owusu RN) 913 (Given - Provider: Karen Mccann RN) 1 mg, oral, 2 TIMES DAILY TRANSPLANT, Fi rst dose on Tue11/15/18 at 2000, Until Discontinued, Routine tacrolimus (PROGRAF) capsule 1 mg 1040 (Given - Provider: Chante Ponce, SHEILA) 1 mg, oral, DAILY, First dose on 10/24 at 0800, Until Discontinued, Routine tiotropium (SPIRIVA) 18 mcg inhalation capsule 18 mcg 0915 (Given - Provider: Karen Mccann, SHEILA) 1040 (Given - Provider: Brynn Ricketts) 18 mcg, inhalation, DAILY, First dose on Tue11/16/18 at 0900, Until Discontinued, Routine Continuous Medication Order 11/15/2018 11/16/2018 11/17/2018 sodium chloride 0.9 % (NS) infusion (CANCELED) 1633 (New Bag - Provider: Curt Singh RN)1929 (Rate Documented - Provider: Nicky Salazar RN) at 30 mL/hr, 2,000 mL, intravenous, CONT INUOUS, Starting Tue11/16/18 at 1530, Until Tue11/17/18 at 0949, Routine PRN Medication Order 11/15/2018 11/16/2018 11/17/2018 albuterol inhaler 2 puff 2 puff, inhalation, EVERY 6 HOURS PRN, S tarting Tue11/15/18 at 1718, Until Tue11/17/18 at 1618, Wheezing, Routine dextrose 50 % solution 12.5 g 12.5 g (25 mL), intravenous, PRN, Starti ng Tue11/15/18 at 1728, Until Tue11/17/18 at 1618, Low Blood Sugar, Routine glucagon injection 1 mg 1 mg, intramuscular, PRN, Starting Tue at 1728, Until Tue11/17/18 at 1618, Low blood sugar, Routine documented in this encounter Orders Medications Ordered That Might Not Have Count Last Ord ered Date First Ordered Date Been Administered acetaminophen (TYLENOL) tablet 650 mg 1 11/15/2018 albuterol inhaler 2 puff 1 11/15/2018 dextrose 50 % solution 12.5 g 1 11/15/2018 gabapentin (NEURONTIN) capsule 900 mg 1 11/15/2018 glucagon injection 1 mg 1 11/15/2018 insulin detemir U-100 (LEVEMIR) injection 2 2018 30 Units insulin glargine (LANTUS SOLOSTAR) 1 11/15/2018 injection pen 30 Units tacrolimus (PROGRAF) capsule 1 mg 1 11/15/2018 Procedures Count Last Ordered Date First Ordered Date ECG REPORT - SCANNED 3 11/23/2018 11/21/2018 Diet Count Last Ordered Date First Ordered Date DISCHARGE DIET 1 11/17/2018 Nursing Count Last Ordered Date First Ordered Date ACTIVITY INSTRUCTIONS 1 11/17/2018 BATHING INSTRUCTIONS 1 11/17/2018 VTE PHARMACOLOGIC PROPHYLAXIS CURRENTLY 1 11/16/19 19 ORDERED OR ON ALTERNATIVE THER IV Count Last Ordered Date First Ordered Date IV REQUEST 1 11/15/2018 Admission Count Last Ordered Date First Ordered Date STATUS: INPATIENT ACUTE ADMISSION 1 11/15/2018 Transfer Count Last Ordered Date First Ordered Date NOTIFY PPS OF DISCHARGE COMPLETE 1 11/17/2018 UR PATIENT STATUS CHANGE 2 11/15/2018 Discharge Count Last Ordered Date First Ordered Date DISCHARGE PATIENT 1 11/17/2018 Legal Count Last Ordered Date First Ordered Date MISCELLANEOUS DISCHARGE INSTRUCTIONS 1 11/17/2018 documented in this encounter Care Teams Curatorial Specialist Relationship Specialty Start Date End Date Violetta Sanford MD PCP - General 04/06/[address] [place] [phone] documented as of this encounter
--- OUTSIDE RECORDS SUMMARY | 2022-05-24 10:44 | XMS_ITS | Encounter Summary ---
:[address] [facility] Address [address] [place] [address] Care Team Providers Name Role Phone Violetta Sanford MD Primary Care Provider Encounter Details Date Type Department Care Team Description 02/24/2022 Lab Requisition [facility] Outr Resulting Lab, Pathology & Laboratory Provider [facility] [address], [place] [id number] Social History Tobacco Use Types Packs/Day Years [...] Associated Diagnosis Comme nts PHOSPHOROUS, URINE Routine 02/24/2022 11:00 Resul ts for this RANDOM EDT procedure are i n the results section. MAGNESIUM,URINE Routine 02/24/2022 11:00 Results for this RANDOM EDT procedure are i n the results section. CALCIUM, URINE Routine 02/24/2022 11:00 Results f or this RANDOM EDT procedure are i n the results section. documented in this encounter Results CALCIUM, URINE RANDOM (02/24/2022 11:00 EDT) Calcium, Urine <1.0 See Note [facility] Comment: mg/dL LABORATORY NOTE: SERVICES Reference range has not been established for calcium concentration in random urine specimens. Specimen Urine - Urine specimen collection, clean catch (procedure) Performing Organization Address [facility] Phon e Number [facility]OR[facility]ORY [address] [place] [address] SERVICES MAGNESIUM,URINE RANDOM (02/24/2022 11:00 EDT) Magnesium, Urine 2.9 See Note [facility] Comment: mg/dL CENTER LABORATORY NOTE: SERVICES Reference range has not been established for magnesium concentration in random urine specimens. Specimen Urine - Urine specimen collection, clean catch (procedure) Performing Organization Address [facility] Phon e Number [facility] [address] [place] [address] SERVICES PHOSPHORUS, URINE RANDOM (02/24/2022 11:00 EDT) Phosphorous, 49.3 See Note [facility] Urine Comment: mg/dL CENTER LABORATORY NOTE: SERVICES Reference range has not been established for phosporous concentration in random urine specimens. Specimen Urine - Urine specimen collection, clean catch (procedure) Performing Organization Address [facility] Phon e Number [facility] [address] [place] [address] SERVICES documented in this encounter Visit Diagnoses Not on filedocumented in this encounter Care Teams Warranty Coordinator Relationship Specialty Start Date End Date Violetta Sanford MD PCP - General 04/06/[address] [place] [address] [phone] documented as of this encounter
--- OUTSIDE RECORDS SUMMARY | 2022-05-24 10:44 | XMS_ITS | Encounter Summary ---
:1955 Author Organization [facility] Address [address] [place] [address] Care Team Providers Name Role Phone Violetta Sanford MD Primary Care Provider Encounter Details Date Type Department Care Team Description 06/11/2019 Lab Requisition [facility] Unknown, Provider, Pathology & Laboratory [facility] [address] [facility] [place] [address] Social History Tobacco Use Types Packs/Day Years [...] Associated Diagnosis Comme nts TACROLIMUS (FK506) Routine 06/11/2019 12:12 Resul ts for this EST procedure are i n the results section. documented in this encounter Results TACROLIMUS (FK506) (06/11/2019 12:12 EST) Tacrolimus 7.2 See Note [facility] Comment: ng/mL LABORATORY SERVICES NOTE: Therapeutic range is dependent on the clinical situati on. Assayed utilizing From [employer] Bench miluminescent technology. ??Values obtained using different assay methohds cannot be used interchangeably. Specimen Blood - Venous blood (substance) Performing Organization Address City/State/[facility] Code Phon e Number [facility] [address] [place] [address] SERVICES documented in this encounter Visit Diagnoses Not on filedocumented in this encounter Care Teams Supervisor Agency Appointments Relationship Specialty Start Date End Date Violetta Sanford MD PCP - General 04/06/[address] [place] [address] [phone] documented as of this encounter
--- OUTSIDE RECORDS SUMMARY | 2022-05-24 10:44 | XMS_ITS | Encounter Summary ---
:1955 Author Organization [facility] Address [address] [place] [address] Care Team Providers Name Role Phone Violetta Sanford MD Primary Care Provider Encounter Details Date Type Department Care Team Description 11/18/2021 Lab Requisition [facility] Outr Resulting Lab, Pathology & Laboratory Provider [facility] [address] [place] [address] Social History Tobacco Use Types [...] Name Priority Date/Time Associated Diagnosis Comme nts HOLD LAVENDER TOP Today 11/18/2021 11:15 Result s for this EDT procedure are i n the results section. TACROLIMUS ([id number]) Today 11/18/2021 11:15 Resul ts for this EDT procedure are i n the results section. documented in this encounter Results HOLD LAVENDER TOP (11/18/2021 11:15 EDT) Pathologist Sig nature Hold Hold [facility] LABORATOR Y SERVICES Specimen Blood - Venous blood (substance) Performing Organization Address [facility] Phon e Number [facility] [address] [place] [address] SERVICES TACROLIMUS ([id number]) (11/18/2021 11:15 EDT) Tacrolimus 3.3 See Note [facility] Comment: ng/mL LABORATORY NOTE: SERVICES Therapeutic range is dependent on the clinical situati on. Assayed utilizing Aktino miluminescent technology. ??Values obtained using different assay methods cannot be used interchangeably. Specimen Blood - Venous blood (substance) Performing Organization Address [facility] Phon e Number [facility] [address] [place] [address] SERVICES documented in this encounter Visit Diagnoses Not on filedocumented in this encounter Care Teams Cnc Technician Relationship Specialty Start Date End Date Violetta Sanford MD PCP - General 04/06/[address] [place] [phone] documented as of this encounter
--- OUTSIDE RECORDS SUMMARY | 2022-05-24 10:45 | XMS_ITS | Encounter Summary ---
:[address] [facility] Address [address] [place] [address] Care Team Providers Name Role Phone Suhas Chowdhury MD Primary Care Provider Unavailable Encounter Details Date Type Department Care Team Description 10/22/2009 Hospital Encounter [facility] Chowdhury, Medical Office [facility] dayne HAWK [phone] Social History Tobacco Use Types Packs/Day Years Used Date Never Assessed Sex Assigned at Date Recorded Not on file documented as of this encounter Discharge Disposition Disposition Code Departure Means Destination Home or Self Chcf documented in this encounter Plan of Treatment Not on filedocumented as of this encounter Visit Diagnoses Not on filedocumented in this encounter Care Teams Animal Doctor Relationship Specialty Start Date End Date Suhas Chowdhury MD PCP - General 10/09/09 04/05/16 documented as of this encounter
--- OUTSIDE RECORDS SUMMARY | 2022-05-24 10:45 | XMS_ITS | Encounter Summary ---
:1955 Author Organization [facility] Address [address] [place] [address] Care Team Providers Name Role Phone Violetta Sanford MD Primary Care Provider Encounter Details Date Type Department Care Team Description 05/13/2022 Office Visit Audiology at [facility] Mindy Moody, Asymmetrical [facility] AUD sensorineural hearing [address] [facility] [place] CENTER [phone] AUDIOLOGY DEPT [phone] [place] [id number] Social History Tobacco Use Types Packs/Day Years Used Date Former Smoker Cigarettes 2 20 Quit: 01/19/19 93 Smokeless Tobacco: Never Used Alcohol Use Standard Drinks/Week Comments Yes 0 (1 standard drink = 0.6 oz pure alcoho l) 1 beer monthly Alcohol Habits Answer Date Recorded How often do you have a drink containing alcohol? Not asked How many drinks containing alcohol do you have on a Not aske d typical day when you are drinking? How often do you have six or more drinks on one Not asked occasion? Comment: 1 beer monthly 04/19/2022 Sex Assigned at Date Recorded Not on file documented as of this encounter Progress Notes Mindy Moody, AUD - 05/13/2022 10:30 AM EDT AUDIOLOGY Leroy Torres was seen today for a hearing aid check. History is positive for asymmetric sensorineural hearing loss. Mr. Torres brought in his [facility] ITC hearing aids for a check. He reported that the left hearing aid creates feedback. The hearing aids have not been checked at this clinic since the in- trial check in 2011. Mr. Torres reported that his left ear feels blocked. The following actions were taken: ?? Otoscopy showed clear ear canals with a PE tube in the left TM. A request for a follow-up visit with Dr. Scott will be sent to scheduling. ?? A listening check indicated that the hearing aids were functioning. Wax filters were replaced. Vent plugs were inserted ?? Verification of fit was completed via [id number] (REM) using the DSL- Adult prescriptive fitting method. Hearing aid programming was adjusted (gain increased) so that the aided responses nicely approximated targets for speech without exceeding MPO targets. Mr. Torres was subjectively satisfied with the sound quality of the aids, and loudness discomfort was denied. ?? Simulated real ear measures were obtained. No d-tiffany separation was observed RECOMMENDATIONS: ?? Follow-up with Dr. Scott re: blocked sensation in left ear ?? Annual hearing test and hearing aid check (around February 2023), sooner if concerns arise Please do not hesitate to contact this Section at [phone] if there are questions regarding thisreport or its recommendations. Lien [place] [address] ; HEARING AID(S): HEARING AID RIGHT LEFT Style ITC Same Make/Model Dimitri Ignite 20 Same Casing Color Beige faceplace/ red case Beige faceplate/blue case Serial Number [id number] Battery Size 312 312 Battery Club ? PROGRAM/SETTINGS ? Fitting Algorithm DSL-Adult Same Verification Method REM Same Programs P1= Normal (automatic omnidirectional/directional tiffany) P4= Autocoil (not in memory rotation Same Disabled Features Push button, VC Same Other Comments Vent plug Same HEARING AID WARRANTY ? Original Fit Date 10/25/11 10/25/11 Current Status Under strategic marketing associate repair and L&D coverage until 11/01/13 Under strategic marketing associate repair and L&D coverage until 11/01/13 EARMOLD (if BTE GARCIA) ? Lab ? EM (style/material/vent/color) ? Impression Date ? Invoice # ? Tube/KAMILLA (length/dome/settlement worker size) ? OTHER/COMMENTS ? documented in this encounter Plan of Treatment Upcoming Encounters Date Type Specialty Care Team Description 05/26/2022 Office Visit Otolaryngology Ricardo Panda PA [facility] [place], [place] [address] (Wo rk) 06/02/2022 Infusion Hematology and Oncology 06/16/2022 Infusion Hematology and Oncology 06/21/2022 Office Visit Neurology Tyler Rojas MD [facility] Neurology [place], [place] [phone] (Wo rk) 06/30/2022 Infusion Hematology and Oncology 07/14/2022 Infusion Hematology and Oncology 07/28/2022 Infusion Hematology and Oncology 08/11/2022 Infusion Hematology and Oncology 11/04/2022 Office Visit Rheumatology Dante Freedman PA [facility] RHEUMATOLOGY [place], [place] [address] (Wo rk) documented as of this encounter Visit Diagnoses Diagnosis Asymmetrical sensorineural hearing loss Sensorineural hearing loss, asymmetrical documented in this encounter Care Teams Business Intelligence Director Relationship Specialty Start Date End Date Violetta Sanford MD PCP - General 04/02/14 [address] [place] [address] documented as of this encounter
--- OUTSIDE RECORDS SUMMARY | 2022-05-24 10:45 | XMS_ITS | Encounter Summary ---
:1955 Author Organization [facility] [place] [address] Care Team Providers Name Role Phone Violetta Sanford MD Primary Care Provider Reason for Visit Reason Comments Injections Aranesp Treatment/Therapy Plan Authorization (Routine) - Authorized Specialty Diagnoses / Procedures Referred By Contact Refer red To Contact Hematology and Diagnoses CKD (chronic kidney disease) stage 4, GFR 15-29 ml/min Nicky Baez [facility] Hem Onc Office Oncology Procedures ALFREDA Ramirez MD [address] [place] [address] HEMATOLOGY/ONCOLOGY [phone] [place] [address] Referral ID Status Reason Start Date Expiration Date Visits V isits Requested Authorized [id number] Authorized 10/08/2020 06/23/2022 99 99 Encounter Details Date Type Department Care Team Description 05/05/2022 Infusion Hematology Oncology at [facility] D (chronic kidney disease) [facility] stage 4, GFR 15-29 ml/min [address] [place] [phone] Social History Tobacco Use Types Packs/Day Years [...] documented as of this encounter Progress Notes Rod [place] RN - 05/05/2022 12:30 PM EDT .INFUSION THERAPY ADMINISTRATION NOTES DIAGNOSIS: Iron Deficiency/CKD REASON FOR VISIT: Aranesp SUBJECTIVE Reuben offers no complaints. OBJECTIVE LAB DATA: From 04/21/22: WBC 6.09, HGB 9.8, HCT 31.9, PLT 150, ANC 3.52 Pre administration: Medication orders independently verified for drug name, route, and dosage per patient's height, weight and BSA by ROD QUINN, SHEILA and [facility]. REACTIONS (DESCRIPTION, TIME, INTERVENTION AND EFFECTIVENESS) none ASSESSMENT Reuben was awake, alert and tolerated treatment well. Aranesp given in [place]. PLAN Return to clinic in 2 weeks. documented in this encounter Plan of Treatment Upcoming Encounters Date Type Specialty Care Team Description 05/26/2022 Office Visit Otolaryngology Ricardo Panda PA [facility] Dr [place], [place] [address] (Oscar escobedo) 06/02/2022 Infusion Hematology and Oncology 06/16/2022 Infusion Hematology and Oncology 06/21/2022 Office Visit Neurology Tyler Rojas MD [facility] Neurology [place], [place] [phone] (Wo rk) 06/30/2022 Infusion Hematology and Oncology 07/14/2022 Infusion Hematology and Oncology 07/28/2022 Infusion Hematology and Oncology 08/11/2022 Infusion Hematology and Oncology 11/04/2022 Office Visit Rheumatology Dante Freedman PA [facility] RHEUMATOLOGY [place], [place] [address] (Oscar escobedo) documented as of this encounter Visit Diagnoses Diagnosis CKD (chronic kidney disease) stage 4, GF R 15-29 ml/min Chronic kidney disease, Stage IV (severe ) documented in this encounter Administered Medications Inactive Administered Medications - up to 3 most recent administrations Medication Order MAR Action Action Date Dose Rate Site darbepoetin cristy-polysorbate Given 05/05/2022 12:31 PM EDT 300 m cg Right Arm (Aranesp) (300 mcg/0.6 mL) injection 300 mcg 300 mcg, Subcutaneous, ONCE, 1 dose, On Tue05/05/22 at 1230, Hold parameters for MDS and chemotherapy-induced anemia: Hemoglobin greater than or equal to 10 gm/dL Hematocrit greater than or equal to 30% Hold parameters for CKD: Hemoglobin greater than or equal to 12 gm/dL Hematocrit greater than or equal to 36%, Routine, What is the indication of use? Chronic Kidney Disease (CKD) documented in this encounter Care Teams Reel Winder Relationship Specialty Start Date End Date Violetta Sanford MD PCP - General 04/02/14 [address] [place] [address] documented as of this encounter
--- OUTSIDE RECORDS SUMMARY | 2022-05-24 10:45 | XMS_ITS | Encounter Summary ---
:1955 Author Organization [facility] [place] [address] Care Team Providers Name Role Phone Violetta Sanford MD Primary Care Provider Reason for Visit Reason Onset Date Comments Labs Only 04/21/2022 Lab tracking Encounter Details Date Type Department Care Team Description 04/21/2022 Telephone Hematology/Oncology at Brittany Vera RN Labs Only (Lab tracking) [address] [phone] Social History Tobacco Use Types Packs/Day Years [...] this encounter Miscellaneous Notes Telephone Encounter - Brittany Vera RN - 04/23/2022 8:55 AM EDT LAB TRACKING Leroy Torres [id number] 1955 ?? DIAGNOSIS: Anemia d/t CKD stage IV, h/o kidney transplant ?? LABS: CBC every 4 weeks as of 05/27/21 ?? MEDICATIONS: Aranesp 300 mcg every 2 weeks if HGB <12 as of 05/27/21 Venofer x 3 weeks last given 12/16/21 ASSESSMENT/PLAN: Saw Dr. Baez in clinic today. He will get aranesp. Continue labs every 4 weeks and see provider in 6 months. Latest Reference Range & Units 02/24/22 00:00 03/17/22 11:44 04/21/22 00:00 WBC 4.0 - 9.5 x10(3)/mcL 6.52 (E) 6.8 6.09 (E) RBC 4.58 - 5.54 x10(6)/mcL 3.24 (L) Hemoglobin 13.7 - 16.5 g/dL 9.9 (E) 9.4 (L) 9.8 (E) Hematocrit 40.5 - 48.5 % 32.0 (E) 30.7 (L) 31.9 (E) MCV 82.9 - 93.1 fL 94.8 (H) MCH 27.5 - 32.1 pg 29.0 MCHC 32.0 - 35.7 g/dL 30.6 (L) RDWSD 36.0 - 45.0 fL 49.7 (H) RDWCV 11.4 - 13.8 % 14.5 (H) Platelets 145 - 357 x10(3)/mcL 191 (E) 180 150 (E) MPV 7.6 - 12.[address] % 0.7 - 2.6 % 1.8 (E) 2.[address] Abs 0.030 - 0.120 x10(6)/mcL 0.070 Immature Retic% 0.0 - 15.6 % 22.5 (H) Reticulated Hgb 31.3 - 40.2 pg 25.9 (L) nRBC % Auto % 0.0 nRBC Abs Auto 0.000 - 0.000 x10(3)/mcL 0.000 Neutr Abs (ANC) 1.70 - 6.10 x10(3)/mcL 3.83 (E) 3.90 3.52 (E) (L): Data is abnormally low (H): Data is abnormally high (E): External lab result documented in this encounter Plan of Treatment Upcoming Encounters Date Type Specialty Care Team Description 05/26/2022 Office Visit Otolaryngology Ricardo Panda PA [facility] [place] [address] (Wo rk) 06/02/2022 Infusion Hematology and Oncology 06/16/2022 Infusion Hematology and Oncology 06/21/2022 Office Visit Neurology Tyler Rojas MD [facility] Neurology [place], [place] [phone] (Wo rk) 06/30/2022 Infusion Hematology and Oncology 07/14/2022 Infusion Hematology and Oncology 07/28/2022 Infusion Hematology and Oncology 08/11/2022 Infusion Hematology and Oncology 11/04/2022 Office Visit Rheumatology Dante Freedman PA [facility] RHEUMATOLOGY [place], [place] [address] (Wo rk) documented as of this encounter Visit Diagnoses Not on filedocumented in this encounter Care Teams Blending Machine Operator Relationship Specialty Start Date End Date Violetta Sanford MD PCP - General 04/02/14 [address] [place] [address] documented as of this encounter
--- OUTSIDE RECORDS SUMMARY | 2022-05-24 10:45 | XMS_ITS | Encounter Summary ---
:1955 [place] [address] Care Team Providers Name Role Phone Violetta Sanford MD Primary Care Provider Encounter Details Date Type Department Care Team Description 05/07/2022 [facility] [place] [phone] Social History Tobacco Use Types Packs/Day Years [...] this encounter Miscellaneous Notes Telephone Encounter - Nuris Woody - 05/07/2022 4:24 PM EDT Patient called back. I offered appointment on Friday 05/11. Mr. Torres asked if there was anything available as they live 100 [place] away and had to be at for another appointment on . Dr. Moody did have an opening at 10:30 on 05/13. Patient accepted visit. Telephone Encounter - Niyah Ricci - 05/07/2022 10:27 AM EDT Called patient at [phone], calling to schedule: Please also arrange for [facility] appointment with Audiology for reevaluation of his hearing aids. Patientseen previously - patient of Mindy Moody HT done February 2022 in chart Left generic voicemail for patient to callback. documented in this encounter Plan of Treatment Upcoming Encounters Date Type Specialty Care Team Description 05/26/2022 Office Visit Otolaryngology Ricardo Panda PA [facility] [place] [address] (Wo rk) 06/02/2022 Infusion Hematology and Oncology 06/16/2022 Infusion Hematology and Oncology 06/21/2022 Office Visit Neurology Tyler Rojas MD [facility] [place] [phone] (Wo rk) 06/30/2022 Infusion Hematology and Oncology 07/14/2022 Infusion Hematology and Oncology 07/28/2022 Infusion Hematology and Oncology 08/11/2022 Infusion Hematology and Oncology 11/04/2022 Office Visit Rheumatology Dante Freedman PA [facility] RHEUMATOLOGY [place], [place] [address] (Wo rk) documented as of this encounter Visit Diagnoses Not on filedocumented in this encounter Care Teams Paper Processing Machine Helper Relationship Specialty Start Date End Date Violetta Sanford MD PCP - General 04/02/14 [address] [place] [address] documented as of this encounter
--- OUTSIDE RECORDS SUMMARY | 2022-05-24 10:45 | XMS_ITS | Encounter Summary ---
:1955 Author Organization [facility] [place] [address] Care Team Providers Name Role Phone Violetta Sanford MD Primary Care Provider Reason for Visit Reason Onset Date Comments Medication Refill 05/04/2022 Encounter Details Date Type Department Care Team Description 05/04/2022 Refill Neurology at [facility] Shivam Rojas MD [facility] [place] [phone] Neurology [phone] [place], [place] [phone] (Wo rk) Social History Tobacco Use Types [...] documented as of this encounter Miscellaneous Notes Addendum Note - Weston Walls CMA - 05/04/2022 1:46 PM EDT Addended by: WESTON WALLS on: 05/04/2022 01:46 PM Modules accepted: Orders Telephone Encounter - Weston Walls CMA - 05/04/2022 1:44 PM EDT I will make note, thank you! Telephone Encounter - Weston Walls CMA - 05/04/2022 10:58 AM EDT Surescript request for : primidone Last rx: 10/26/21 Quantity: 120 Refills: 5 Last appt: 06/26/2019 Next appt: 06/21/2022 documented in this encounter Plan of Treatment Upcoming Encounters Date Type Specialty Care Team Description 05/26/2022 Office Visit Otolaryngology Ricardo Panda PA [facility] [address] [place], [place] [address] (Wo rk) 06/02/2022 Infusion Hematology and Oncology 06/16/2022 Infusion Hematology and Oncology 06/21/2022 Office Visit Neurology Tyler Rojas MD [facility] Neurology [place], [place] [phone] (Wo rk) 06/30/2022 Infusion Hematology and Oncology 07/14/2022 Infusion Hematology and Oncology 07/28/2022 Infusion Hematology and Oncology 08/11/2022 Infusion Hematology and Oncology 11/04/2022 Office Visit Rheumatology Dante Freedman PA [facility] RHEUMATOLOGY [place], [place] [address] (Wo rk) documented as of this encounter Visit Diagnoses Not on filedocumented in this encounter Care Teams Personal Injury Litigation Paralegal Relationship Specialty Start Date End Date Violetta Sanford MD PCP - General 04/02/14 [facility] ALONDRA DAVID [address] [address] documented as of this encounter
--- OUTSIDE RECORDS SUMMARY | 2022-05-24 10:45 | XMS_ITS | Encounter Summary ---
:1955 Author Organization [facility] Address [address] [place] [address] Care Team Providers Name Role Phone Suhas Chowdhury MD Primary Care Provider Unavailable Encounter Details Date Type Department Care Team Description 01/22/2010 Hospital Encounter [facility] Chowdhury, Medical Office [facility] dayne HAWK [phone] Social History Tobacco Use Types Packs/Day Years Used Date Never Assessed Sex Assigned at Date Recorded Not on file documented as of this encounter Discharge Disposition Disposition Code Departure Means Destination Home or Self Chcf documented in this encounter Plan of Treatment Not on filedocumented as of this encounter Visit Diagnoses Not on filedocumented in this encounter Care Teams Manufacturing Maintenance Manager Relationship Specialty Start Date End Date Suhas Chowdhury MD PCP - General 10/09/09 04/05/16 documented as of this encounter
--- OUTSIDE RECORDS SUMMARY | 2022-05-24 10:45 | XMS_ITS | Encounter Summary ---
:1955 Author Organization [facility] [place] [address] Care Team Providers Name Role Phone Violetta Sanford MD Primary Care Provider Encounter Details Date Type Department Care Team Description 05/06/2022 Telephone Gastroenterology at [facility] Kimo Singh MD [facility] [place] [address] GASTROENTEROLOGY [phone] [place], [place] [address] (Wo rk) Social History Tobacco Use Types [...] this encounter Miscellaneous Notes Telephone Encounter - Kimo Singh MD - 05/06/2022 7:42 AM EDT Will plan for fluconazole 400mg tomorrow and then 100mg daily for the remaining 13 days. Tacrolimus trough on 05/10, and again on 05/24. It appears the fluconazole will also interact with his primidone, so will have pt monitor sx and call if any develop. Kimo Singh MD Advanced Endoscopy Fellow Department of Gastroenterology documented in this encounter Plan of Treatment Upcoming Encounters Date Type Specialty Care Team Description 05/26/2022 Office Visit Otolaryngology Ricardo Panda PA [facility] er [address] [place], [place] [address] (Wo rk) 06/02/2022 Infusion Hematology and Oncology 06/16/2022 Infusion Hematology and Oncology 06/21/2022 Office Visit Neurology Tyler Rojas MD [facility] Neurology [place], [place] [phone] (Wo rk) 06/30/2022 Infusion Hematology and Oncology 07/14/2022 Infusion Hematology and Oncology 07/28/2022 Infusion Hematology and Oncology 08/11/2022 Infusion Hematology and Oncology 11/04/2022 Office Visit Rheumatology Dante Freedman PA [facility] RHEUMATOLOGY [place], [place] [address] (Wo rk) documented as of this encounter Visit Diagnoses Diagnosis Monika esophagitis - Primary Candidiasis of the esophagus documented in this encounter Care Teams Wharf Attendant Relationship Specialty Start Date End Date Violetta Sanford MD PCP - General 04/02/14 [facility] ALONDRA DAVID [facility] [address] [place] [address] documented as of this encounter
--- OUTSIDE RECORDS SUMMARY | 2022-05-24 10:45 | XMS_ITS | Encounter Summary ---
:1955 Author Organization [facility] [place] [address] Care Team Providers Name Role Phone Violetta Sanford MD Primary Care Provider Reason for Visit Reason Onset Date Comments Labs Only 05/19/2022 Lab Tracking Encounter Details Date Type Department Care Team Description 05/19/2022 Telephone Hematology/Oncology at [facility], Labs Only (Lab Tracking) [facility] Angelica Gilbert RN [address] [place] [phone] Social History Tobacco Use Types Packs/Day [...] this encounter Miscellaneous Notes Telephone Encounter - nAgelica Malhotra RN - 05/19/2022 1:30 PM EDT LAB TRACKING Leroy Torres [id number] 1955 ?? DIAGNOSIS: Anemia d/t CKD stage IV, h/o kidney transplant ?? LABS: CBC every 4 weeks as of 05/27/21 ?? MEDICATIONS: Aranesp 300 mcg every 2 weeks if HGB <12 as of 05/27/21 Venofer x 3 weeks last given 12/16/21 ASSESSMENT/PLAN: Labs sent to provider to review. He will get aranesp today. Continue labs every 4 weeks and see provider in 6 months. [facility] lab called creatinine level of 4.0 to us, Dr Garnett's team notified. 04/21/22 00:00 05/19/22 00:00 WBC 6.09 (E) 6.67 (E) Hemoglobin 9.8 (E) 9.6 (E) Hematocrit 31.9 (E) 31.1 (E) Platelets 150 (E) 200 (E) Neutr Abs (ANC) 3.52 (E) 3.45 (E) Sodium 139 (E) Potassium 4.7 (E) 4.7 (E) Chloride 109 (E) CO2 21 (E) BUN 48 (E) Creatinine 3.9 (E) 4.0 !! (E) Calcium 8.9 (E) Magnesium 1.6 (E) Glucose Lvl 161 (E) Total Protein 7.5 (E) Albumin 2.8 (E) Total Bilirubin 0.3 (E) 0.4 (E) Alk Phos 155 (E) 135 (E) AST 11 (E) 14 (E) ALT 15 (E) 15 (E) Iron 44 (E) TIBC 158 (E) Iron Saturation 28 (E) Ferritin 90 (E) 99 (E) !!: Data is critical (E): External lab result documented in this encounter Plan of Treatment Upcoming Encounters Date Type Specialty Care Team Description 05/26/2022 Office Visit Otolaryngology Ricardo Panda PA [facility] [address] [place] [address] (Wo gregg) 06/02/2022 Infusion Hematology and Oncology 06/16/2022 Infusion Hematology and Oncology 06/21/2022 Office Visit Neurology Tyler Rojas MD [facility] Dr Sofi [place] [phone] (Wo rk) 06/30/2022 Infusion Hematology and Oncology 07/14/2022 Infusion Hematology and Oncology 07/28/2022 Infusion Hematology and Oncology 08/11/2022 Infusion Hematology and Oncology 11/04/2022 Office Visit Rheumatology Dante Freedman PA [facility]HEUM[facility] [place] [address] (Wo rk) documented as of this encounter Procedures Procedure Name Priority Date/Time Associated Diagnosis Comme nts CBC (WITH DIFF) Routine 05/19/2022 Results for this procedure are i n the results section . COMPREHENSIVE METABOLIC Routine 05/19/2022 Resu lts for this PANEL (NON-FASTING) procedur e are in the results section . documented in this encounter Results (ABNORMAL) Comprehensive metabolic panel (non-fasting) (05/19/2022) Patholo gist Method Time Signature Glucose Lvl 161 BUN 48 Creatinine 4.0 (Critical) Sodium 139 Potassium 4.7 Chloride 109 CO2 21 Calcium 8.9 Total Protein 7.5 Albumin 2.8 Total Bilirubin 0.4 Alk Phos 135 AST 14 ALT 15 Magnesium 1.6 mg/dL Ferritin 99 Specimen (Source) Anatomical Location Collection Method / Collectio n Time Received Time / Laterality Volume Blood Historical Provider CHEMISTRY ORDERABLES CBC (with Diff) (05/19/2022) P athologist Signature WBC 6.67 Hemoglobin 9.6 Hematocrit 31.1 Platelets 200 Neutr Abs (ANC) 3.45 Specimen (Source) Anatomical Location Collection Method / Collectio n Time Received Time / Laterality Volume Blood Historical Provider HEMATOLOGY ORDERABLES documented in this encounter Visit Diagnoses Not on filedocumented in this encounter Care Teams Composition Worker Relationship Specialty Start Date End Date Violetta Sanford MD PCP - General 04/02/14 [address] [place] [address] documented as of this encounter
--- OUTSIDE RECORDS SUMMARY | 2022-05-24 10:45 | XMS_ITS | Encounter Summary ---
:1955 Author Organization [facility] [place] [address] Care Team Providers Name Role Phone Violetta Sanford MD Primary Care Provider Encounter Details Date Type Department Care Team Description 05/13/2022 Telephone Otolaryngology at [facility] [place] [address] Social History Tobacco Use Types Packs/Day [...] this encounter Miscellaneous Notes Telephone Encounter - Sylvia Dyson - 05/13/2022 1:31 PM EDT I called today to schedule Patient requests follow-up with Dr. Scott due to blocked sensation in left ear I left a vm to call back to schedule. documented in this encounter Plan of Treatment Upcoming Encounters Date Type Specialty Care Team Description 05/26/2022 Office Visit Otolaryngology Ricardo Panda PA [facility] Dr [place], [place] [address] (Wo rk) 06/02/2022 Infusion Hematology and Oncology 06/16/2022 Infusion Hematology and Oncology 06/21/2022 Office Visit Neurology Tyler Rojas MD [facility] Neurology [place], [place] [phone] (Wo rk) 06/30/2022 Infusion Hematology and Oncology 07/14/2022 Infusion Hematology and Oncology 07/28/2022 Infusion Hematology and Oncology 08/11/2022 Infusion Hematology and Oncology 11/04/2022 Office Visit Rheumatology Dante Freedman PA [facility] RHEUMATOLOGY [place], [place] [address] (Wo rk) documented as of this encounter Visit Diagnoses Not on filedocumented in this encounter Care Teams Bioinformatics Research Technician Relationship Specialty Start Date End Date Violetta Sanford MD PCP - General 04/02/14 [address] [place] [address] documented as of this encounter
--- OUTSIDE RECORDS SUMMARY | 2022-05-24 10:45 | XMS_ITS | Encounter Summary ---
:1955 Author Organization [facility] [place] [address] Care Team Providers Name Role Phone Violetta Sanford MD Primary Care Provider Encounter Details Date Type Department Care Team Description 05/04/2022 Telephone Gastroenterology at [facility] Kimo Singh [place] [address] GASTROENTEROLOGY [phone] [place], [place] [address] (Wo rk) Social History Tobacco [...] Telephone Encounter - Kimo Singh MD - 05/04/2022 5:24 PM EDT Called pt to inform him that his endoscopy results were positive for brett esophagitis. He reports having 2 years of dysphagia but no recent change in sx. Pt has multiple allergies to antibiotics, though not to antifungal therapy. 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 When I spoke to him about antifungal treatment, he requested that I discuss the regimen with his transplant doctor, Dr. Garnett, before proceeding with treatment. Will reach out to Dr. Garnett about starting antifungal therapy for brett esophagitis. Kimo Singh MD Advanced Endoscopy Fellow Department of Gastroenterology documented in this encounter Plan of Treatment Upcoming Encounters Date Type Specialty Care Team Description 05/26/2022 Office Visit Otolaryngology Ricardo Panda PA [facility] Dr [place], [place] [address] (Wo rk) 06/02/2022 Infusion Hematology and Oncology 06/16/2022 Infusion Hematology and Oncology 06/21/2022 Office Visit Neurology Tyler Rojas MD [facility] Neurology [place], [place] [phone] (Wo rk) 06/30/2022 Infusion Hematology and Oncology 07/14/2022 Infusion Hematology and Oncology 07/28/2022 Infusion Hematology and Oncology 08/11/2022 Infusion Hematology and Oncology 11/04/2022 Office Visit Rheumatology Dante Freedman PA [facility] RHEUMATOLOGY [place], [place] [address] (Wo rk) documented as of this encounter Visit Diagnoses Not on filedocumented in this encounter Care Teams Brim Ironer Hand Relationship Specialty Start Date End Date Violetta Sanford MD PCP - General 04/02/14 [address] [place] [address] documented as of this encounter
--- OUTSIDE RECORDS SUMMARY | 2022-05-24 10:45 | XMS_ITS | Encounter Summary ---
:1955 Author Organization [facility] [place] [address] Care Team Providers Name Role Phone Violetta Sanford MD Primary Care Provider Encounter Details Date Type Department Care Team Description 05/13/2022 Laboratory Appointment Lab 3L [facility] [place] [phone] Social History Tobacco Use Types Packs/Day Years [...] as of this encounter Plan of Treatment Upcoming Encounters Date Type Specialty Care Team Description 05/26/2022 Office Visit Otolaryngology Ricardo Panda PA [facility] Dr [place] [address] (Wo rk) 06/02/2022 Infusion Hematology and Oncology 06/16/2022 Infusion Hematology and Oncology 06/21/2022 Office Visit Neurology Tyler Rojas MD [facility] Dr Sofi [place] [address]22 (Wo rk) 06/30/2022 Infusion Hematology and Oncology 07/14/2022 Infusion Hematology and Oncology 07/28/2022 Infusion Hematology and Oncology 08/11/2022 Infusion Hematology and Oncology 11/04/2022 Office Visit Rheumatology Dante Freedman PA [facility] DR [place] [address] (Wo rk) documented as of this encounter Procedures Procedure Name Priority Date/Time Associated Diagnosis Comme nts HC [id number] Routine 05/13/2022 11:34 AM Monika esophagitis R esults for this (TACROLIMUS) EDT procedure are i n the results section. documented in this encounter Results Tacrolimus level (05/13/2022 11:34 AM EDT) athologist Signature Tacrolimus Lvl 3.6 ng/mL [facility] Comment: Trough therapeutic range is 3-15 ng/mL, depending upon transplant type, time since transplantation, use of other immu nosuppressive drugs, comorbidities, and test method used. Tacrolimus concentration determined usin g the [employer] Tacrolimus electrochemiluminescence competitive imm unoassay. Results from different samples types and methods are not interchangeable. Specimen Anatomical Collection Method Collection Time Receive d Time (Source) Location / / Volume Laterality Blood 05/13/2022 11:34 05/13/2022 AM EDT 11:40 AM EDT Resulting Agency Comment Spec In Lab Kimo Singh MD CHEMISTRY ORDERABLES Performing Organization Address City/State/ZIP [place] [address] documented in this encounter Visit Diagnoses Diagnosis Monika esophagitis Candidiasis of the esophagus documented in this encounter Care Teams Upstairs Maid Relationship Specialty Start Date End Date Violetta Sanford MD PCP - General 04/02/14 [address] [place] [address] documented as of this encounter
--- OUTSIDE RECORDS SUMMARY | 2022-05-24 10:45 | XMS_ITS | Encounter Summary ---
:1955 Author Organization [facility] [place] [address] Care Team Providers Name Role Phone Violetta Sanford MD Primary Care Provider Reason for Visit Reason Comments Medication Refill Encounter Details Date Type Department Care Team Description 05/03/2022 Refill Neurology at [facility] Shivam Rojas MD [facility] [place] [phone] Neurology [phone] [place], [place] [phone] (Wo rk) Social History Tobacco Use Types [...] Addendum Note - Weston Walls CMA - 05/03/2022 12:58 PM EDT Addended by: WESTON WALLS on: 05/03/2022 12:58 PM Modules accepted: Orders Telephone Encounter - Weston Walls CMA - 05/03/2022 11:07 AM EDT Surescript request for : primidone Last rx: 10/26/21 Quantity: 120 Refills: 3 Last appt: 06/26/2019 Next appt: 06/22/22 documented in this encounter Plan of Treatment Upcoming Encounters Date Type Specialty Care Team Description 05/26/2022 Office Visit Otolaryngology Ricardo Panda PA [facility] Dr [place], [place] [address] (Wo rk) 06/02/2022 Infusion Hematology and Oncology 06/16/2022 Infusion Hematology and Oncology 06/21/2022 Office Visit Neurology Tyler Rojas MD [facility] Neurology [place], [place] [phone] (Wo rk) 06/30/2022 Infusion Hematology and Oncology 07/14/2022 Infusion Hematology and Oncology 07/28/2022 Infusion Hematology and Oncology 08/11/2022 Infusion Hematology and Oncology 11/04/2022 Office Visit Rheumatology Dante Freedman PA [facility] RHEUMATOLOGY [place], [place] [address] (Wo rk) documented as of this encounter Visit Diagnoses Not on filedocumented in this encounter Care Teams Rn L And D Relationship Specialty Start Date End Date Violetta Sanford MD PCP - General 04/02/14 [address] [place] [address] documented as of this encounter
--- OUTSIDE RECORDS SUMMARY | 2022-05-24 10:45 | XMS_ITS | Encounter Summary ---
:1955 Author Organization [facility] [place] [address] Care Team Providers Name Role Phone Violetta Sanford MD Primary Care Provider Encounter Details Date Type Department Care Team Description 05/21/2022 External Results Solid Organ Transpla nt at [facility] [place] [place] [phone] Social History Tobacco Use Types Packs/Day [...] Panda PA [facility] Dr [place] [address] (Wo rk) 06/02/2022 Infusion Hematology and Oncology 06/16/2022 Infusion Hematology and Oncology 06/21/2022 Office Visit Neurology Tyler Rojas MD [facility] Dr Sofi [place] [address]22 (Wo rk) 06/30/2022 Infusion Hematology and Oncology 07/14/2022 Infusion Hematology and Oncology 07/28/2022 Infusion Hematology and Oncology 08/11/2022 Infusion Hematology and Oncology 11/04/2022 Office Visit Rheumatology Dante Freedman PA [facility] [place], [place] [address] (Wo rk) documented as of this encounter Procedures Procedure Name Priority Date/Time Associated Diagnosis Comme nts LAB SCAN Routine 05/19/2022 Results for thi s procedure are in the resu lts section. documented in this encounter Results Scan Doc: Lab (05/19/2022) Narrative This result has an attachment that is no t available. Historical Provider MEDIA MGR SCAN EXT ORDR/RSLT documented in this encounter Visit Diagnoses Not on filedocumented in this encounter Care Teams Sap Hana Developer Relationship Specialty Start Date End Date Violetta Sanford MD PCP - General 04/02/14 [address] [place] [address] documented as of this encounter
--- OUTSIDE RECORDS SUMMARY | 2022-05-24 10:45 | XMS_ITS | Encounter Summary ---
:1955 Author Organization [facility] [place] [address] Care Team Providers Name Role Phone Violetta Sanford MD Primary Care Provider Reason for Visit Reason Comments Injections aranesp Treatment/Therapy Plan Authorization (Routine) - Authorized Specialty Diagnoses / Procedures Referred By Contact Refer red To Contact Hematology and Diagnoses CKD (chronic kidney disease) stage 4, GFR 15-29 ml/min Nicky Baez [facility] Hem Onc Office Oncology Procedures ALFREDA Ramirez MD [address] [place] [address] HEMATOLOGY/ONCOLOGY [id number] [place] [address] Referral ID Status Reason Start Date Expiration Date Visits V isits Requested Authorized [id number] Authorized 10/08/2020 06/23/2022 99 99 Encounter Details Date Type Department Care Team Description 05/19/2022 Infusion Hematology Oncology at [facility] (chronic kidney disease) [facility] stage 4, GFR 15-29 ml/min [address] [place] [phone] Social History Tobacco Use Types [...] Sign Reading Time Taken Comments Blood Pressure 142/53 05/19/2022 1:29 PM EDT Pulse 65 05/19/2022 1:29 PM EDT Temperature 37 ??C (98.6 ??F) 05/19/2022 1:29 PM EDT Respiratory Rate 18 05/19/2022 1:29 PM EDT Oxygen Saturation 98% 05/19/2022 1:29 PM EDT Inhaled Oxygen Concentration - - Weight - - Height - - Body Mass Index - - documented in this encounter Progress Notes Jumana Saab RN - 05/19/2022 1:30 PM EDT .INFUSION THERAPY ADMINISTRATION NOTES DIAGNOSIS: Iron Deficiency/CKD REASON FOR VISIT: Aranesp SUBJECTIVE Reuben offers no complaints. OBJECTIVE LAB DATA: From 05/19/22: WBC 3.26, HGB 9.6, HCT 31.1, PLT 200, ANC 3.45, Iron 37, TIBC 206, [id number] Pre administration: Medication orders independently verified for drug name, route, and dosage per patient's height, weight and BSA by Jumana Saab, SHEILA and [facility]. REACTIONS (DESCRIPTION, TIME, INTERVENTION AND EFFECTIVENESS) none ASSESSMENT Reuben was awake, alert and tolerated treatment well. Aranesp given in [place]. PLAN Return to clinic in 2 weeks. documented in this encounter Plan of Treatment Upcoming Encounters Date Type Specialty Care Team Description 05/26/2022 Office Visit Otolaryngology Ricardo Panda PA [facility] Dr [place] [address] (Wo rk) 06/02/2022 Infusion Hematology and Oncology 06/16/2022 Infusion Hematology and Oncology 06/21/2022 Office Visit Neurology Tyler Rojas MD [facility] Dr Sofi [place], [place] [phone] (Wo rk) 06/30/2022 Infusion Hematology and Oncology 07/14/2022 Infusion Hematology and Oncology 07/28/2022 Infusion Hematology and Oncology 08/11/2022 Infusion Hematology and Oncology 11/04/2022 Office Visit Rheumatology Dante Freedman PA [facility]HEUM[facility] [place], [place] [address] (Wo rk) documented as of this encounter Visit Diagnoses Diagnosis CKD (chronic kidney disease) stage 4, GF R 15-29 ml/min Chronic kidney disease, Stage IV (severe ) documented in this encounter Administered Medications Inactive Administered Medications - up to 3 most recent administrations Medication Order MAR Action Action Date Dose Rate Site darbepoetin cristy-polysorbate Given 05/19/2022 1:34 PM EDT 300 mc g Right Arm (Aranesp) (300 mcg/0.6 mL) injection 300 mcg 300 mcg, Subcutaneous, ONCE, 1 dose, On Tue05/19/22 at 1330, Hold parameters for MDS and chemotherapy-induced anemia: Hemoglobin greater than or equal to 10 gm/dL Hematocrit greater than or equal to 30% Hold parameters for CKD: Hemoglobin greater than or equal to 12 gm/dL Hematocrit greater than or equal to 36%, Routine, What is the indication of use? Chronic Kidney Disease (CKD) documented in this encounter Care Teams Firestop/Containment Worker Relationship Specialty Start Date End Date Violetta Sanford MD PCP - General 04/02/14 [facility] ALONDRA CONRAD [address] [place] [address] documented as of this encounter
--- OUTSIDE RECORDS SUMMARY | 2022-05-24 10:45 | XMS_ITS | Encounter Summary ---
:1955 Author Organization [facility] [place] [address] Care Team Providers Name Role Phone Violetta Sanford MD Primary Care Provider Encounter Details Date Type Department Care Team Description 04/26/2022 External Results [facility] [place] [phone] Social History Tobacco Use Types Packs/Day [...] 05/26/2022 Office Visit Otolaryngology Ricardo Panda PA [facility] Dr [place] [address] (Wo rk) 06/02/2022 Infusion Hematology and Oncology 06/16/2022 Infusion Hematology and Oncology 06/21/2022 Office Visit Neurology Tyler Rojas MD [facility] Dr Sofi [place] [address]22 (Wo rk) 06/30/2022 Infusion Hematology and Oncology 07/14/2022 Infusion Hematology and Oncology 07/28/2022 Infusion Hematology and Oncology 08/11/2022 Infusion Hematology and Oncology 11/04/2022 Office Visit Rheumatology Dante Freedman PA [facility] RHEUMATOLOGY [place], [place] [address] (Wo rk) documented as of this encounter Procedures Procedure Name Priority Date/Time Associated Diagnosis Comme nts LAB SCAN Routine 04/21/2022 Results for thi s procedure are in the resu lts section. documented in this encounter Results Scan Doc: Lab (04/21/2022) Narrative This result has an attachment that is no t available. Historical Provider MEDIA MGR SCAN EXT ORDR/RSLT documented in this encounter Visit Diagnoses Not on filedocumented in this encounter Care Teams Log Preparer Relationship Specialty Start Date End Date Violetta Sanford MD PCP - General 04/02/14 [address] [place] [address] documented as of this encounter
--- OUTSIDE RECORDS SUMMARY | 2022-05-24 10:45 | XMS_ITS | Clinical Summary ---
:1955 Author Organization [facility] [place] [address] Care Team Providers Name Role Phone Violetta Sanford MD Primary Care Provider Allergies Active Allergy Reactions Severity Noted Date Comments Iftikhar Inhibitors Medium Cough Allergenic Extracts Low 04/19/2012 Birch [employer] Nut Trees, cats, dust, sunil juanita bird feathers Clindamycin Hcl Rash Medium Doxycycline 04/20/2021 Penicillins Low Tolerated cefep viktor 01/07 Sulfamethoxazole Low 04/20/2021 Other react ion(s): Unknown Sulfamethoxazole-Trimethoprim Low 11/15/2018 Trimethoprim Low 04/20/2021 Other reaction( s): Unknown Medications Medication Sig Dispensed Refills Start Date End Date Status aspirin 81 mg EC Take 81 mg by mouth 0 Active tablet daily. BD INSULIN PEN 0 03/28/2015 Acti ve NEEDLE UF ORIG 29 gauge x 1/2 Needle Miscellaneous 4 Devices by 4 each 0 12[facility]02/2015 [facility]; MiscIndications: Combo Route) route S/P bilateral BKA daily. Rubber sheath (below knee for leg prosthesis amputation) (2 pairs) acetaminophen Take 650 mg by mouth 0 Active (TYLENOL) 325 mg every 4 hours as Tablet needed for Pain. Reported on 08/06/2016 atorvastatin Take 1 tablet by 90 tablet 3 02/03/2017 Active (LIPITOR) 20 mg mouth daily. Tablet folic acid Take 2 tablets by 180 tablet 3 02/03/2017 Active (FOLVITE) 1 mg mouth daily. Tablet omeprazole Take 1 capsule by 90 capsule 3 02/03/2017 Active (PRILOSEC) 40 mg mouth daily. Capsule, Delayed Release(E.C.) liraglutide Inject 1.2 mg 6 mL 11 03/09/2017 Act roderick (VICTOZA 3-FAZAL) 0.6 subcutaneously mg/0.1 mL (18 mg/3 daily. mL) Pen InjectorIndications : Type 2 diabetes mellitus with complication, with long-term current use of insulin insulin needles, 1 Device by 100 each 3 03/09/2017 Active disposable, 29 Mis.(Non-Drug; gauge x 1/2 Combo Route) route 3 NeedleIndications: times daily. Type 2 diabetes mellitus with complication, with long-term current use of insulin LEVEMIR FLEXTOUCH Inject 50-80 Units 45 mL 11 02/13/2018 Active U-100 INSULN subcutaneously 2 Insulin Pen times daily. ICD 10 Code: E11.40 multivitamin with Take 1 tablet by 0 Active minerals Tablet mouth Daily. albuterol Take 3 mLs by 90 mL 3 08/29/2019 Activ e (PROVENTIL) 2.5 mg nebulization every 4 /3 mL (0.083 %) hours as needed for Solution for Wheezing. Nebulization Additional Information Patient not taking. Reported on 04/28/2022 fluticasone propionate INSTILL 2 SPRAYS INTO 0 09/06 Active (FLONASE) 50 EACH NOSTRIL ONCE A mcg/actuation Stuart, DAY NEEDED Suspension amLODIPine (Norvasc) Take 0.5 tablets by 90 tablet 3 0 Active 10 mg Tablet mouth daily. metoprolol succinate Take 1 tablet by mouth 90 tablet 1 2019 Active XL (Toprol-XL) 50 mg daily. Tablet Sustained Release 24 hr Blood-Glucose Sensor by [facility].(Non-Drug; 0 Active (Dexcom G6 Sensor) Combo Route) route. Device Sensor, end maker andtransmitter darbepoetin cristy in Inject 300 mg as 0 Active polysorbat 10 mcg/0.4 directed as needed. mL Syringe cyanocobalamin, Take 100 mcg by mouth 0 Active Vitamin B-12, (Vitamin daily. B-12) 100 mcg Tablet FreeStyle Gilberto 14 Day 1 each by 6 kit 3 01/13/2021 Active Sensor Kit [facility].(Non-Drug; Combo Route) route every 14 days. Use to continuously monitor blood glucose. Scan at least 5 times per day. DX: E11.65 hydrALAZINE Take 1 tablet by mouth 270 tablet 2 02/16/2021 Active (Apresoline) 100 mg 3 times daily. TabletIndications: Chronic atrial fibrillation insulin aspart U-100 Inject 10-25 Units 0 Active (NovoLOG) Cartridge subcutaneously 2 times daily. Sliding scale umeclidinium-vilantero Inhale into the lungs 0 Active L (Anoro Ellipta) daily. 62.5-25 mcg/actuation Disk with Device FreeStyle Gilberto 2 Use to continuously 1 each 0 08/04/2021 Active [place] Misc monitor blood glucose. Scan at least 5 times per day. FreeStyle Gilberto 2 1 each by 6 kit 3 08/07/2021 A ctive Sensor Kit Mis.(Non-Drug; Combo Route) route every 14 days. Use to continuously monitor blood glucose. Scan at least 4 times per day. ipratropium-albuteroL Inhale into the lungs. 0 11/15 Active (Duoneb) 0.5 mg-3 mg(2.5 mg base)/3 mL Solution for Nebulization montelukast Take 10 mg by mouth 0 10/14/2021 Active (Singulair) 10 mg daily. Tablet guaiFENesin ER Take 1,200 mg by mouth 0 Active (Mucinex) 600 mg 2 times daily. Tablet Extended Release 12hr losartan (Cozaar) 25 Take 1 tablet by mouth 90 tablet 3 202103/12/20 Active mg Tablet every evening for 360 23 days. calciTRIoL (Rocaltrol) Take 1 capsule by 90 capsule 3 03/17/20 22 03/17/20 Active 0.5 mcg Capsule mouth daily. 23 CellCept 250 mg Take 2 capsules by 120 capsule 11 03/23/2022 Active CapsuleIndications: mouth twice daily Transplanted kidney Prograf 0.5 mg TAKE 1 CAPSULE BY 30 capsule 11 03/23/2022 Active CapsuleIndications: MOUTH NIGHTLY Transplanted kidney, Other complication of kidney transplant, Prophylactic immunotherapy Prograf 1 mg Take 1 capsule by 30 capsule 11 03/23/2022 Active CapsuleIndications: mouth once daily Transplanted kidney primidone (Mysoline) Take 1 tablet by mouth 120 tablet 3 05/04 Active 50 mg Tablet 4 times daily. Additional Information Patient taking differently: 50 mg Oral 4 TIMES DAILY, Managed by PCP, Reported on 05/04/2022 fluconazole (Diflucan) 100 mg Take 4 tablets tomorrow 17 tablet 0 05/06/2022 Active TabletIndications: Brett (05/07/22), then 1 esophagitis tablet daily until complete. 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 MYRINGOTOMY TUBES/TUBE REMOVAL Patient's Name: Leroy Torres MRN: [id number] Surgery Date: 12/29/2021 Interval Follow Up: Year 1 Post-Op 4-6 Weeks 01/28/22 MATTHIEU - MD x MATTHIEU-AP AUD 45 PRIOR to appt X Other complication of kidney transplant 10/20/2021 Immunocompromised state due to drug therapy 10/20/2021 Essential hypertension 11/25/2020 Renal osteodystrophy 09/09/2020 Other postherpetic nervous system involvement 09/09/19 21 Renal tubular acidosis 09/09/2020 Hypervolemia 04/21/2020 PAF (paroxysmal atrial fibrillation) 11/15/2019 Phantom limb pain 09/20/2019 Chronic atrial fibrillation 07/09/2019 CKD (chronic kidney disease) stage 4, GFR 15-29 ml/min 07/09/2019 Overview: Formatting of this note is dif ferent from the original. 10/22/21 BONE MARROW (PERIPHERAL SMEAR, A SPIRATE SMEAR, TOUCH PREP, CORE BIOPSY): ?1. ??Normocellular marrow (50%) trina wing complete multilineage ?? hematopoiesis, ??with ? mild erythroid hypoplasia and a mi ld increase in polytypic plasma cell (see ? discussion) ?2. ??Iron stores are present per ir on stain ?3. ??Peripheral smear with borderli ne macrocytic anemia ?4. ??Pending genetic studies CG and NGS myeloid panel w/o sig finding s Prophylactic immunotherapy 03/21/2019 Persistent proteinuria 03/08/2017 [facility] current use of immunosuppressive drug 2015 Aftercare following organ transplant 07/23/2016 Hyperlipidemia 04/03/2014 Reflux esophagitis 04/03/2014 COPD (chronic obstructive pulmonary disease) 4 Hydrocele 02/13/2014 Lower urinary tract symptoms 02/13/2014 ?Appendicitis, sp appendectomy 06/16/13 06/19/2013 Intermittent fever of unknown origin 06/19/2013 Tremor/tics 06/19/2013 Hyperglycemia 06/19/2013 Immunosuppression 06/18/2013 H/O kidney transplant 06/18/2013 History of renal transplant 08/29/2012 Amputee, below knee 03/17/2012 Overview: Right BKA Delayed wound healing 09/30/2011 Sensorineural hearing loss, bilateral 08/11/2011 Tremor, essential 03/31/2011 Injury, other and unspecified, unspecified site 2010 Overview: Display name was automatically updated b y a utility run on 10/27/2011 Diabetes mellitus with neuropathy 02/16/2011 Charcot's arthropathy, diabetic, R 02/16/2011 Amputee, below knee, L 08/02/2006 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ifestations Resolved Problems Problem Noted Date Resolved Date Wheelchair fitting or adjustment - Power Chair Evaluation 06/28/2014 06/28/14 requested by Donell Hernandez MD Overview: Wheelchair evaluation for power mobility by Koby Jean-Baptiste PT, DPT and [employer] Britton, [employer] ph. [phone]. NOTE: As of 06/28/14 evaluation, patient does not meet Medicare guidelines for powered mobility. See PT evaluation 06/28/14 for specifics. Wheelchair fitting or adjustment - Power Chair Evaluation 06/28/2014 06/28/14 requested by Donell Hernandez MD End stage renal disease 08/02/2006 08/29/2012 Encounters Date Type Specialty Care Team Description 05/21/2022 External Results Transplant 05/19/2022 Infusion Hematology and CKD (chronic kidney Oncology disease) stage 4, GFR 15-29 ml/min 05/19/2022 Telephone Hematology and [place], Labs Only ([facility] Oncology Alison Hampton) RN 05/19/2022 Travel 05/14/2022 Telephone Gastroenterology Singh, Kimo Gilbert MD 05/13/2022 Laboratory Lab Brett esophag itis Appointment 05/13/2022 Office Visit Audiology Mindy Moody Asymmetrical L, AUD sensorineural h earing loss 05/13/2022 Telephone Otolaryngology Sylvia Dyson 05/10/2022 Telephone Gastroenterology Breanne Bridges 05/07/2022 Telephone Audiology Niyah Ricci 05/06/2022 Telephone Gastroenterology [facility], Kimo Gilbert MD 05/05/2022 Infusion Hematology and CKD (chronic kidney Oncology disease) stage 4, GFR 15-29 ml/min 05/05/2022 Telephone Gastroenterology SinghKimo gonsalez MD 05/04/2022 Telephone Gastroenterology SinghKimo gonsalez MD 05/04/2022 Refill Neurology Shivam Rojas MD 05/03/2022 Refill Neurology Shivam Rojas MD 04/28/2022 Office Visit Otolaryngology Iraj Scott R, Left chronic serous otitis media; ETD (Eustachian tube dysfunction), left; 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; H/O kidney tilley splant; [facility] curre nt use of immunosuppressive drug 04/26/2022 External Results Transplant 04/21/2022 Infusion Hematology and CKD (chronic kidney Oncology disease) stage 4, GFR 15-29 ml/min 04/21/2022 Office Visit Hematology and Sasha, Anemia of chr onic renal failure, stage 4 (severe); Oncology Nicky Ramirez, H/O kidney tilley splant 04/21/2022 Telephone Hematology and Brittany Vera, Labs Only ( Lab basket braider tracking) 04/21/2022 Telephone Transplant Aria Khan, RN 04/19/2022 Surgery Gastroenterology Singh, Kimo Gilbert, EGD WITH BIOPSY ([facility] 2.49) 04/19/2022 Anesthesia Event Gastroenterology Josué Gutierrez MD 04/19/2022 [facility] Gastroenterology SinghKimo gonsalez Encounter MD 04/07/2022 Infusion Hematology and Anemia of chr onic Oncology renal failure, stage 4 (severe) 04/01/2022 Hospital Radiology Sieglinger, Dysphagia, unsp ecified Encounter Shira E, SUPERVISOR WINTER type 03/25/2022 Telephone Otolaryngology Aria Colón 03/24/2022 Infusion Hematology and Anemia of chr onic Oncology renal failure, stage 4 (severe) 03/24/2022 Telephone Hematology and [place], Labs Only ([facility] Angelica Gilbert, Tracking) RN 03/23/2022 Refill Transplant Mariola, Transplanted ki dney; Alejo Desir MD Other complica tion of kidney transplant; Prophylactic im munotherapy 03/17/2022 Office Visit Transplant Mariola, CKD (chronic ki dney disease) stage 4, GFR 15-29 ml/min; Alejo Desir MD Anemia of compliance nurse ivon renal failure, stage 4 (severe); Renal osteodyst rophy; Aftercare follo wing organ transplant; Prophylactic im munotherapy; Other complicat ion of kidney transplant 03/17/2022 Laboratory Lab Appointment 03/17/2022 Office Visit Otolaryngology Iraj Scott R, Left chronic serous otitis media; 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; H/O kidney tilley splant; [facility] curre nt use of immunosuppressive drug; Anemia of chron ic renal failure, stage 4 (severe) 03/17/2022 Office Visit Audiology Nuon, Asymmetrical se nsorineural hearing loss; Mer Nowak, AUD History of ty mpanostomy tube placement 03/17/2022 Refill Transplant Alejo Garnett MD 03/10/2022 Infusion Hematology and Anemia of chr onic Oncology renal failure, stage 4 (severe) 03/10/2022 Orders Only Hematology and Margaret Purvis Anemia of c hronic Oncology M, SUPERVISOR WINTER renal failure, stage 4 (severe) 03/05/2022 External Results Transplant 03/04/2022 External Results Transplant 03/04/2022 Refill Transplant Aria Khan, SHEILA 02/25/2022 Procedure visit Gastroenterology Dysphagi a, unspecified type 02/24/2022 Infusion Hematology and Anemia of chr onic Oncology renal failure, stage 4 (severe) 02/24/2022 Telephone Hematology and [place], Labs Only ([facility] Carrie-Alison Eagle) RN 02/22/2022 Telephone Gastroenterology Haley Weathers L from Last 3 Months Immunizations Name Administration Dates Next Due Hepatitis B Vaccine, unspecified 03/01/2005, 09/28/2004, formulation Influenza PF, Split 05/13/2016 Influenza Vaccine, High Dose 10/05/2021 Quadrivalent PF Influenza Vaccine, Whole 06/25/2008, 05/19/2005 Moderna Covid-19 (Chronic Condition Nurse 100mcg) 03/19/2021, 11/17/2020, Vaccine Pneumococcal Conjugate (13 Valent) 07/09/2015 Pneumococcal Polyvalent 23 03/21/2019, 02/23/2012, 7, 12/20/1996 Td, adult 06/24/1990 Tdap Vaccine 07/13/2013 Social History Tobacco Use Types Packs/Day Years [...] EDT Inhaled Oxygen Concentration - - Weight 127.9 kg (282 lb) 04/28/2022 1:30 PM EDT Height 193 cm (6' 4) 04/28/2022 1:30 PM EDT Body Mass Index 34.33 04/28/2022 1:30 PM EDT Plan of Treatment Upcoming Encounters Date Type Specialty Care Team Description 05/26/2022 Office Visit Otolaryngology Ricardo Panda PA [facility] [place] [address] (Wo rk) 06/02/2022 Infusion Hematology and Oncology 06/16/2022 Infusion Hematology and Oncology 06/21/2022 Office Visit Neurology Tyler Rojas MD [facility] Neurology [place], [place] [phone] (Wo rk) 06/30/2022 Infusion Hematology and Oncology 07/14/2022 Infusion Hematology and Oncology 07/28/2022 Infusion Hematology and Oncology 08/11/2022 Infusion Hematology and Oncology 11/04/2022 Office Visit Rheumatology Dante Freedman PA [facility] RHEUMATOLOGY [place], [place] [address] (Wo rk) Health Maintenance Due Date Last Done Comments DM Opthalmology Exam 1963 Hepatitis C Screening 1971 Zoster vaccine (1 of 2) 1972 Colonoscopy 1998 Advance Directive 2008 DM Urine Microalbumin yearly 02/25/2015 02/25/2014, 010 AAA Screen 2018 Covid-19 Vaccine (4 - Booster for 05/14/2021 03/19/2021, , Moderna series) 10/20/2020 Influenza (Flu) vaccine (1 of 1 - 03/25/2022 10/05/2021, , Influenza standard series) 06/25/2008, Additiona l history exists DM Hemoglobin A1c 6 month 04/07/2022 10/05/2021, 03/06/2021 , 10/28/2020, Additional history exists DM Creatinine yearly 05/19/2023 05/19/2022, 04/21/2022, 03/17/2022, Additional history exists Tetanus vaccine 07/13/2023 07/13/2013, 06/24/1990 Tdap adult Completed 07/13/2013 Pneumoccocal Vaccine: 65+ Completed 03/21/2019, 07/09/2015 , 02/23/2012, Additional history exists Medical Devices Implanted Type Area Gift Shop Clerk Device Shelf Model / Identifier Expiration Date Ser ial / Lot Paparella Vent Tube 1.02mm Id Ultrasil Silicone Left: Ear 06/12/2029 [id number] / Implanted: Qty: 1 on 02/09/2022 by Archie Avila MD at [facility] / [id number] Procedures Procedure Name Priority Date/Time Associated Comments Diagnosis LAB SCAN Routine 05/19/2022 Results for thi s procedure are i n the results section. LAB SCAN 05/19/2022 12:00 Results for this AM EDT procedure are i n the results section. LAB SCAN 05/19/2022 12:00 Results for this AM EDT procedure are i n the results section. LAB SCAN 05/19/2022 12:00 Results for this AM EDT procedure are i n the results section. LAB SCAN 05/19/2022 12:00 Results for this AM EDT procedure are i n the results section. LAB SCAN 05/19/2022 12:00 Results for this AM EDT procedure are i n the results section. LAB SCAN 05/19/2022 12:00 Results for this AM EDT procedure are i n the results section. LAB SCAN 05/19/2022 12:00 Results for this AM EDT procedure are i n the results section. COMPREHENSIVE Routine 05/19/2022 Results for th is METABOLIC PANEL procedure ar e in (NON-FASTING) the results section. CBC (WITH DIFF) Routine 05/19/2022 Results for this procedure are i n the results section. HC FK-506 (TACROLIMUS) Routine 05/13/2022 11:34 Brett esopha gitis Results for this AM EDT procedure are i n the results section. LAB SCAN Routine 04/21/2022 Results for thi s procedure are i n the results section. LAB SCAN 04/21/2022 12:00 Results for this AM EDT procedure are i n the results section. LAB SCAN 04/21/2022 12:00 Results for this AM EDT procedure are i n the results section. LAB SCAN 04/21/2022 12:00 Results for this AM EDT procedure are i n the results section. COMPREHENSIVE Routine 04/21/2022 Results for th is METABOLIC PANEL procedure ar e in (NON-FASTING) the results section. CBC (WITH DIFF) Routine 04/21/2022 Results for this procedure are i n the results section. SPECIMEN TO PATHOLOGY Routine 04/19/2022 9:14 AM Results for this EDT procedure are i n the results section. SPECIMEN TO PATHOLOGY Routine 04/19/2022 9:14 AM Results for this EDT procedure are i n the results section. SPECIMEN TO PATHOLOGY Routine 04/19/2022 9:14 AM Results for this EDT procedure are i n the results section. SPECIMEN TO PATHOLOGY Routine 04/19/2022 9:14 AM Results for this EDT procedure are i n the results section. SURGICAL PATHOLOGY Routine 04/19/2022 8:57 AM Res ults for this REPORT EDT procedure are i n the results section. EGD WITH BIOPSY (WRVU 04/19/2022 8:51 AM Dysphagia, 2.49) EDT unspecified type UPPER GI ENDOSCOPY Routine 04/19/2022 8:39 AM Res ults for this EDT procedure are i n the results section. XR FLUORO BARIUM Routine 04/01/2022 9:12 AM Dysphagia, Resul ts for this SWALLOW (SINGLE EDT unspecified type procedur e are in CONTRAST) the results section. URINALYSIS MICROSCOPIC Routine 03/17/2022 11:49 R esults for this EXAM AM EDT procedure are i n the results section. URINALYSIS WITH REFLEX Routine 03/17/2022 11:49 H/O kidney R esults for this CULTURE AM EDT transplant procedure are i n the results section. HC CREATININE - NON Routine 03/17/2022 11:49 H/O kidney Resu lts for this BLOOD AM EDT transplant procedure are i n the results section. DIFFERENTIAL, Routine 03/17/2022 11:44 H/O kidney Results fo r this AUTOMATED AM EDT transplant procedure are i n the results section. HEMOGRAM Routine 03/17/2022 11:44 H/O kidney Results for this AM EDT transplant procedure are i n the results section. HC CBC,PLT & AUTO DIFF Routine 03/17/2022 11:44 H/O kidney AM EDT transplant HC RETIC,AUTO INCLUDES Routine 03/17/2022 11:44 H/O kidney R esults for this RETHE & IRF AM EDT transplant procedure are i n the results section. COMPREHENSIVE Routine 03/17/2022 11:44 H/O kidney Results fo r this METABOLIC PANEL AM EDT transplant procedure ar e in (NON-FASTING) the results section. HC CHOLESTEROL Routine 03/17/2022 11:44 H/O kidney Results f or this AM EDT transplant procedure are i n the results section. HC MAGNESIUM, SERUM Routine 03/17/2022 11:44 H/O kidney Resu lts for this AM EDT transplant procedure are i n the results section. HC PHOSPHORUS, SERUM Routine 03/17/2022 11:44 H/O kidney Res ults for this AM EDT transplant procedure are i n the results section. HC URIC ACID, SERUM Routine 03/17/2022 11:44 H/O kidney Resu lts for this AM EDT transplant procedure are i n the results section. HC FK-506 (TACROLIMUS) Routine 03/17/2022 11:44 H/O kidney R esults for this AM EDT transplant procedure are i n the results section. COMPREHENSIVE HEARING Routine 03/17/2022 9:51 AM Results for this TEST EDT procedure are i n the results section. LAB SCAN 03/02/2022 12:00 Results for this AM EDT procedure are i n the results section. LAB SCAN 03/02/2022 12:00 Results for this AM EDT procedure are i n the results section. EXTERNAL LAB RESULTS Routine 02/24/2022 Results for this procedure are i n the results section. EXTERNAL LAB RESULTS Routine 02/24/2022 Results for this procedure are i n the results section. EXTERNAL LAB RESULTS Routine 02/24/2022 EXTERNAL LAB RESULTS Routine 02/24/2022 EXTERNAL LAB RESULTS Routine 02/24/2022 CBC (WITH DIFF) Routine 02/24/2022 Results for this procedure are i n the results section. from Last 3 Months Results Scan Doc: Lab (05/19/2022)Only the most recent of14 resultswithin the time period is included. Narrative This result has an attachment that is no t available. Historical Provider MD SANDOVAL MGR SCAN EXT ORDR/RSLT CBC (with Diff) (05/19/2022)Only the most recent of3 resultswithin the time period is included. P athologist Signature WBC 6.67 Hemoglobin 9.6 Hematocrit 31.1 Platelets 200 Neutr Abs (ANC) 3.45 Specimen (Source) Anatomical Location Collection Method / Collectio n Time Received Time / Laterality Volume Blood Historical Provider HEMATOLOGY ORDERABLES (ABNORMAL) Comprehensive metabolic panel (non-fasting) (05/19/2022)Only the most recent of3 resultswithin the time period is included. Patholo gist Method Time Signature Glucose Lvl 161 BUN 48 Creatinine 4.0 (Critical) Sodium 139 Potassium 4.7 Chloride 109 CO2 21 Calcium 8.9 Total Protein 7.5 Albumin 2.8 Total Bilirubin 0.4 Alk Phos 135 AST 14 ALT 15 Magnesium 1.6 mg/dL Ferritin 99 Specimen (Source) Anatomical Location Collection Method / Collectio n Time Received Time / Laterality Volume Blood Historical Provider CHEMISTRY ORDERABLES Tacrolimus level (05/13/2022 11:34 AM EDT)Only the most recent of2 resultswithin the time period is included. P athologist Signature Tacrolimus Lvl 3.6 ng/mL [facility] Comment: Trough therapeutic range is [...] Organization Address City/State/[place] [address] Specimen to Pathology (04/19/2022 9:14 AM EDT)Only the most recent of4 results within the time period is included. Specimen Anatomical Collection Method Collection Time Receive d Time (Source) Location / / Volume Laterality AP Specimen 04/19/2022 9:14 AM 2 9:14 EDT AM EDT Narrative [facility] - 04/19/2022 9:14 AM EDT Specimen requisition ordered. ??Separate Pathology report to follow Kimo Singh MD PATHOLOGY/CYTOLOGY ORDERABLE S Performing Organization Address City/State/ZIP Code Phon e Number [place] [address] [address] [facility] Surgical Pathology Report (04/19/2022 8:57 AM EDT) Component Value Ref Test Analysis Performed At [facility] gist Range Method Time Signature Surgical [id number] ? Location: 4T; EA06; A [facility] Pathology [place] Report The signing pathologist has (i) examined the relevant preparation(s) for the [facility] specimen(s) and (ii) rendered or confirmed the diagnosis(es) . HOSPITAL LABORATORY . ?Surgic al Pathology DIAGNOSIS A - Distal esoph bx's. r/o EOE, biopsy (Multiple): - Brett esophagitis (see Discussion). B - Gastric erosion bx's. r/o h-pylori, biopsy (Multiple): - Gastric ??body/fundic-type mucosa with parietal cell hyperplasia consistent with PPI effect. - ??Immunostaining for H. pylori is negative. C - Prox esoph bx's. r/o EOE, biopsy (Multiple): - Brett esophagitis (see Discussion). D - Gastric antrum bx's., biopsy (Multiple): - ??Gastric antral gland muc araseli with nonspecific reactive gastropathy, acute and chronic inflammation and ?? erosion. - ??Immunostaining for H. pylori is negative. Electronically signed by: ?Rasheeda HAWK PhD, Jaclyn Verified: ??04/26/2022 13:43 ??Pathologist Performed at: ??-[facility] Dept. of Pathology, [place], [place] DISCUSSION A, C - ??Yeast and pseudohyp hae consistent with Brett species are seen ??on the H&E stain. ADDITIONAL STUDIES Immunohistochemistry Studies: Formalin-fixed, paraffin-emb edded tissue sections are studied using the polymer technique with appropriate positive and negative controls. ?These IHC studies provide the pathologist wit h adjunctive diagnostic information. Antibody specificity has been verified by testin g antibodies on a series of in-house tissues with known immunohistochemical perform ance characteristics. The clinical interpretation of any antibody positive stain ing or its absence is evaluated within the context of clinical presentation, morp hology, histopathological criteria and other diagnostic tests. Block ? Antibody ?Result (Positive /Negative) B1 ? H. pylori ?Negative D1 ? H. pylori ?Negative SPECIMEN(S) SUBMITTED A - Distal esoph bx's. r/o EOE, biopsy (Multiple) B - Gastric erosion bx's. r/o h-pylori, biopsy (Multiple) C - Prox esoph bx's. r/o EOE, biopsy (Multiple) D - Gastric antrum bx's., biopsy (Multiple) CLINICAL INFORMATION 56-year-old with dysphagia . SPECIMEN PROCESSING A - Labeled/Fixative: Distal esophagus BX's. Rule out EOE, f ormalin. Quantity/Size: Four, ranging from 0.2-0.5 cm in greatest dim ension. Tissue Description: Soft, friable pink white tissues. Sections/Processing: Submitted en toto ??in 1 cassette labeled A1. B - Labeled/Fixative: Gastric erosion BX's. Rule out H. pylo ri, formalin. Quantity/Size: Two, 0.3 and 0.4 cm in greatest dimension. Tissue Description: Soft, aiken-pink tissues. Sections/Processing: Submitted en toto ??in 1 cassette labeled B1. C - Labeled/Fixative: Proximal esophagus BX's. Rule out EOE, formalin. Quantity/Size: Three, ranging from 0.4-0.7 cm in greatest di mension. Tissue Description: Soft, pink-white tissues. Sections/Processing: Submitted en toto ??in 1 cassette labeled C1. D - Labeled/Fixative: Gastric antrum BX's, formalin. Quantity/Size: Two, 0.2 and 0.3 cm in greatest dimension. Tissue Description: Soft, aiken-pink tissues. Sections/Processing: Submitted en toto ??in 1 cassette labeled D1. ??nrl Specimen (Source) Anatomical Collection Method Collection Time Re ceived Time Location / / Volume Laterality 04/19/2022 8:57 AM EDT Kimo Singh MD PATHOLOGY/CYTOLOGY ORDERABLE S Performing Organization Address City/State/ZIP [place] [address] UPPER GI ENDOSCOPY (04/19/2022 8:39 AM EDT) Component Value Ref Test Analysis Performed Pathologis t Range Method Time At Signature UPPER GI [facility] ENDOSCOPY Endoscopy Procedure Date: 04/19/2022 8:39 AM ? Patient Name: Leroy Torres ? Date of : 1955 ? Age: 66 ? Order #: [id number] ? Instrument Name: [id number] ? Procedure: ? Upper GI endoscopy Indications: ? Esophageal dysphagia Providers: ? Julia Acevedo, ? Alejo Fleming RN, Am in Memar Referring MD: ?Violetta Sanford MD Medicines: ? Monitored Anesthesia Care Complications: ? No immediate complications. Procedure: ? Pre-Anesthesia Assessment: ? - Prior to the procedure, a History ? and Physical was performed , and ? patient medications, aller gies and ? sensitivities were reviewe d. The ? patient's tolerance of pre vious ? anesthesia was reviewed. ? - The risks and benefits o f the ? procedure and the sedation options ? and risks were discussed w ith the ? patient. All questions wer e ? answered and informed cons ent was ? obtained. ? - Patient identification a nd ? proposed procedure were ve rified ? prior to the procedure by the ? physician. The procedure w as ? verified in the pre-proced ure area. ? - Pre-procedure physical ? examination revealed no ? contraindications to sedat ion. ? - ASA Grade Assessment: II I - A ? patient with severe system ic ? disease. ? - After reviewing the risk s and ? benefits, the patient was deemed in ? satisfactory condition to undergo ? the procedure. ? - Monitored anesthesia car e under ? the supervision of an ? anesthesiologist was deter mined to ? be medically necessary for this ? procedure based on age 65 or older ? and severe comorbidity (gr eater ? than ASA Grade II). ? The procedure, indications , ? benefits, risks and altern atives ? were explained to the guerda ent. ? Specifically discussed wer e ? potential complications in cluding, ? but not limited to, mario sr, ? perforation, infection, mi ssing a ? cancer, and adverse medica tion ? reactions. The Endoscope w as ? introduced through the sophie th, and ? advanced to the second par t of ? duodenum The upper GI endo scopy was ? accomplished without diffi culty. ? The patient tolerated the procedure ? well. ? Findings: ? Diffuse, white plaques were found in the entire ? esophagus. Biopsies were taken with a cold forceps ? for histology. ? A few dispersed small erosions with no bleeding and ? no stigmata of recent bleeding were found in the ? gastric antrum. Biopsies were taken with a cold ? forceps for histology. Random biopsies also taken ? from the gastric body to rule out H. pylori. ? The exam of the stomach was otherwise normal. ? Patchy mucosal changes characterized by ? 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 bulb. ? Moderate Sedation: ? Not applicable - See Anesthesia documentation Impression: ?- Esophageal plaques were found , ? suspicious for candidiasis . ? Biopsied. ? - Erosive gastropathy with no ? bleeding and no stigmata o f recent ? bleeding. Biopsied. ? - Pseudomelanosis duodeni, which is ? a benign finding. Otherwis e normal ? visualized duodenum. Recommendation: ?- Await pathology results. If ? brett esophagitis is fou nd, will ? prescribe a course of fluc onazole. ? - Discharge patient to musa e. ? - Resume previous diet. ? - Continue present medicat ions. ? Procedure Code(s): ? --- Professional --- ? 77903, Esophagogastroduode noscopy, ? flexible, transoral; with biopsy, ? single or multiple Diagnosis Code(s): ? --- Professional --- ? K22.9, Disease of esophagu s, ? unspecified ? K31.89, Other diseases of stomach ? and duodenum ? R13.14, Dysphagia, ? pharyngoesophageal phase ? --- Technical --- ? K22.9, Disease of esophagu s, ? unspecified ? K31.89, Other diseases of stomach ? and duodenum ? R13.14, Dysphagia, ? pharyngoesophageal phase CPT copyright 2021 [employer]. All rights reserved. The codes documented in this report are preliminary and upon professional fee coder review may be revised to meet current compliance requirements. Attending Participation: ? I was present and participated during the entire ? procedure, including non-martínez portions. ? Kimo Singh M.D. Kimo Singh, 04/19/2022 9:22:51 AM This report has been signed electronically. Number of Addenda: 0 Note Initiated On: 04/19/2022 8:39 AM Specimen (Source) Anatomical Collection Method Collection Time Re ceived Time Location / / Volume Laterality 04/19/2022 8:39 AM EDT Violetta Sanford MD GENERAL SURGICAL ORDERABLES Performing Organization Address City/State/ZIP Code Phon e Number [place] XR Fluoro Barium Swallow (Single Contrast) (04/01/2022 9:12 AM EDT) Anatomical Region Laterality Modality N/A Radio Fluoroscopy Specimen (Source) Anatomical Location Collection Method / Collectio n Time Received Time / Laterality Volume Impressions 04/01/2022 10:25 AM EDT Normal single contrast esophagram: No evidence of achalasia. I have personally reviewed the image(s) and the resident's interpretation and agree with the findings, Gabriele Martínez MD at 04/01/2022 10:25 AM Thank you for letting us participate in the care of this patient. ??If you are a health care provider and have any questi ons regarding this report, please contact the number below. ??For patients who have questions please contact the health transitional care nurse that requested your imaging first. ? Electronically signed by: James Molina, [facility] ([phone]), at 04/01/2022 10:25 AM Narrative 04/01/2022 10:25 AM EDT EXAMINATION: XR FLUORO BARIUM SWALLOW (SINGLE CONTRAST) CLINICAL HISTORY: ?achalasia TECHNIQUE: Formal barium swallow examination with t imed component were unable to be performed due to patient mobility limita tions. Single contrast esophagram and a semisupine angle was performed. ??Fluoro scopic spot films were obtained. Fluoro time: 0.82 minutes COMPARISON: None FINDINGS: Pricing/Signage Team Member: The visualized lungs and cardiomediastin al contours are normal. No acute osseous lesions. Swallow: The esophagus is normal in course and ca liber, and is well distended. ??No narrowing or stricture. The gastroesophageal junction is normall y positioned. Esophageal peristalsis is normal. Procedure Note Gabriele Martínez MD - 04/01/2022Formattin g of this note might be different from the original. EXAMINATION: XR FLUORO BARIUM SWALLOW (S KARLY CONTRAST) CLINICAL HISTORY: ?achalasia TECHNIQUE: Formal barium swallow examination with t imed component were unable to be performed due to patient mobility limita tions. Single contrast esophagram and a semisupine angle was performed. Fluorosc opic spot films were obtained. Fluoro time: 0.82 minutes COMPARISON: None FINDINGS: Pricing/Signage Team Member: The visualized lungs and cardiomediastin al contours are normal. No acute osseous lesions. Swallow: The esophagus is normal in course and ca liber, and is well distended. No narrowing or stricture. The gastroesophageal junction is normall y positioned. Esophageal peristalsis is normal. IMPRESSION Normal single contrast esophagram: No ev idence of achalasia. I have personally reviewed the image(s) and the resident's interpretation and agree with the findings, Gabriele Martínez MD at 04/01/2022 10:25 AM Thank you for letting us participate in the care of this patient. If you are a health care provider and have any questi ons regarding this report, please contact the number below. For patients w ho have questions please contact the health transitional care nurse that requested your imaging first. Electronically signed by: James Molina, [facility] ([phone]), at 04/01/2022 10:25 AM Shira Ramírez SUPERVISOR [employer] FLUORO ORDERABLES (ABNORMAL) Urinalysis Microscopic Exam (03/17/2022 11:49 AM EDT) P athologist Signature RBC UA 5 (H) 0 - 3 /HPF [facility] WBC UA 1 0 - 3 /HPF [facility] Squam Epith UA 1 <=4 /HPF [facility] Hyaline Cast 1 0 - 2 /LPF [facility] Specimen Anatomical Collection Method Collection Time Receive d Time (Source) Location / / Volume Laterality Clean Catch 03/17/2022 11:49 03/17/2022 Urine AM EDT 11:59 AM EDT Resulting Agency Comment Spec In Lab Alejo Garnett MD URINE ORDERABLES Performing Organization Address City/[facility]/ZIP Code Phon e Number [address] (ABNORMAL) Protein/Creatinine Ratio, urine (03/17/2022 11:49 AM EDT) Analysis Performed At Patho logist Time Signature U Creatinine 70 mg/dL [facility] U Protein Ran 333 (H) 0 - 12 [facility] mg/dL [facility] Prot/Cre Ratio 4.8 ratio [facility] Specimen Anatomical Collection Method Collection Time Receive d Time (Source) Location / / Volume Laterality Urine 03/17/2022 11:49 03/17/2022 AM EDT 12:01 PM EDT Resulting Agency Comment Spec In Lab Alejo Garnett MD URINE ORDERABLES Performing Organization Address City/[facility]/ZIP Code Phon e Number [address] (ABNORMAL) Urinalysis with reflex Culture (03/17/2022 11:49 AM EDT) Patholo gist Method Time Signature Glucose UA 100 (A) Negative [facility] Protein UA >=300 (A) Negative [facility] mg/dL [facility] Bilirubin UA Negative Negative [facility] mg/dL [facility] Comment: Clinical correlation required for positi ve Urine Bilirubin results as false positive may occur with some drugs and d rug related products. If a false positive is suspected a serum total bili reyna should be considered if clinically indicated. Urobilinogen UA Normal Normal mg/dL [facility] pH UA 6.0 5.0 - 8.0 [facility] Blood UA Negative Negative mg/dL [facility] Ketones UA Negative Negative mg/dL [facility] Nitrite UA Negative Negative [facility] Leukocytes UA Negative Negative [facility] LABORATORY Appearance UA Clear Clear [facility] Spec [place] UA 1.016 1.005 - 1.030 [facility] Color UA Yellow Yellow [facility] Culture Reflexed No [facility] Specimen Anatomical Collection Method Collection Time Receive d Time (Source) Location / / Volume Laterality Clean Catch 03/17/2022 11:49 03/17/2022 Urine AM EDT 11:59 AM EDT Resulting Agency Comment Spec In Lab Alejo Garnett MD URINE ORDERABLES Performing Organization Address City/State/[place] [address] (ABNORMAL) Hemogram (03/17/2022 11:44 AM EDT) Analysis Performed At Patho logist Time Signature WBC 6.8 4.0 - 9.[address] [facility] x10(3)/[facility] LABORATORY RBC 3.24 (L) 4.58 - [facility] 5.54 [facility] x10(6)/[facility] LABORATORY Hemoglobin 9.4 (L) 13.7 - [facility] 16.5 g/dL [facility] Hematocrit 30.7 (L) 40.5 - [facility] 48.5 % [facility] MCV 94.8 (H) 82.9 - [facility] 93.1 [facility] LABORATORY MCH 29.0 27.5 - [facility] 32.1 pg [facility] MCHC 30.6 (L) 32.0 - [facility] 35.7 g/dL [facility] Platelets 180 145 - [address] [facility] x10(3)/[facility] LABORATORY RDWSD 49.7 (H) 36.0 - [facility] 45.0 [facility] LABORATORY RDWCV 14.5 (H) 11.4 - [facility] 13.8 % [facility] MPV 8.8 7.6 - 12.9 [facility] LABORATORY nRBC % Auto 0.0 % [facility] nRBC Abs Auto 0.000 0.000 - [facility] 0.000 [facility] x10(3)/[facility] LABORATORY Specimen Anatomical Collection Method Collection Time Receive d Time (Source) Location / / Volume Laterality Blood 03/17/2022 11:44 03/17/2022 AM EDT 12:08 PM EDT Resulting Agency Comment Spec In Lab Alejo aGrnett MD HEMATOLOGY ORDERABLES Performing Organization Address City/State/[place] [address] Differential, Automated (03/17/2022 11:44 AM EDT) P athologist Signature Neutrophils % 57.0 % [facility] Neutr Abs (ANC) 3.90 1.70 - [facility] 6.10 [facility] x10(3)/[facility] LABORATORY Lymphocytes % 28.1 % [facility] Lymphocytes Abs 1.9 0.9 - 3.[address] [facility] x10(3)/[facility] LABORATORY Monocytes % 10.1 % [facility] Monocyte Abs 0.7 0.3 - 0.[address] [facility] x10(3)[facility] LABORATORY Eosinophils % 4.4 % [facility] Eosinophils Abs 0.3 0.0 - 0.[address] [facility] x10(3)[facility] LABORATORY Basophils % 0.3 % [facility] Basophils Abs 0.0 0.0 - 0.[address] [facility] x10(3)[facility] LABORATORY Immature Gran % 0.10 % [facility] Comment: Immature granulocytes(IG's)percentage an d absolute count will include metamyelocytes, myelocytes, and promyelo cytes. Blood smears from CBCs yielding IG's will be scanned manually for concor dance. If this scan disagrees with the automated IG or if promyelocytes are not ed, a manual differential will be performed. Courtney Gran Abs 0.01 0.00 - 0.04 x10(3)/mcL [facility] Specimen Anatomical Collection Method Collection Time Receive d Time (Source) Location / / Volume Laterality Blood 03/17/2022 11:44 03/17/2022 AM EDT 12:08 PM EDT Resulting Agency Comment Spec In Lab Alejo Garnett MD HEMATOLOGY ORDERABLES Performing Organization Address City/[facility]/ZIP Code Phon e Number [address] (ABNORMAL) Reticulocyte Count (03/17/2022 11:44 AM EDT) Patholo gist Method Time Signature Retic Ct % 2.1 0.7 - 2.[address] [facility] % [facility]OR[facility] Retic Ct Abs 0.070 0.030 - [facility] 0.120 [facility] x10(6)/[facility] L LABORATORY Immature Retic% 22.5 (H) 0.0 - [facility] 15.6 % [facility] Reticulated Hgb 25.9 (L) 31.3 - [facility] 40.2 pg [facility]ORATORY Specimen Anatomical Collection Method Collection Time Receive d Time (Source) Location / / Volume Laterality Blood 03/17/2022 11:44 03/17/2022 AM EDT 12:08 PM EDT Resulting Agency Comment Spec In Lab Alejo Garnett MD HEMATOLOGY ORDERABLES Performing Organization Address City/[facility]/ZIP Code Phon e Number [address] Uric acid (03/17/2022 11:44 AM EDT) P athologist Signature Uric Acid 8.1 3.5 - 8.[address] [facility] mg/dL [facility] Specimen Anatomical Collection Method Collection Time Receive d Time (Source) Location / / Volume Laterality Blood 03/17/2022 11:44 03/17/2022 AM EDT 12:08 PM EDT Resulting Agency Comment Spec In Lab Alejo Garnett MD CHEMISTRY ORDERABLES Performing Organization Address City/[facility]/ZIP Code Phon e Number [address] Phosphorus (03/17/2022 11:44 AM EDT) athologist Signature Phosphorus 3.4 2.5 - 4.5 [facility] mg/dL [facility] Specimen Anatomical Collection Method Collection Time Receive d Time (Source) Location / / Volume Laterality Blood 03/17/2022 11:44 03/17/2022 AM EDT 12:08 PM EDT Resulting Agency Comment Spec In Lab Alejo Garnett MD CHEMISTRY ORDERABLES Performing Organization Address City/State/ZIP Code Phon e Number [address] Magnesium (03/17/2022 11:44 AM EDT) athologist Signature Magnesium 0.71 0.69 - 1.07 [facility] mmol/L [facility] Specimen Anatomical Collection Method Collection Time Receive d Time (Source) Location / / Volume Laterality Blood 03/17/2022 11:44 03/17/2022 AM EDT 12:08 PM EDT Resulting Agency Comment Spec In Lab Alejo Garnett MD CHEMISTRY ORDERABLES Performing Organization Address City/State/ZIP Code Phon e Number [address] Cholesterol, total (03/17/2022 11:44 AM EDT) athologist Signature Chol, Total 91 mg/dL [facility] Comment: Lower Risk: <200 mg/dL Average Risk: 200-239 mg/dL Higher Risk: >dc=467 mg/dL Lipid Interpretation See Note [facility] Comment: Lipid management should be guided by a p atient? s ASCVD risk, goals and preferences. ACC/AHA Guidelines recommend high intens ity statin if clinical ASCVD or LDL greater than or equal to 190 mg/dL. [email or web address] Adults aged 40-75 with LDL 70-189 mg/dL should have their 10 year ASCVD risk estimated with the ACC/AHA ASCVD risk es timator http://tools.acc.org/VREGO-Xuzz-Olhqehhx r/ Statin should be discussed if risk great er than or equal to 7.5% in non-diabetics. With diabetes, moderate i ntensity statin is recommended if risk less than 7.5%, high intensity if risk g reater than or equal to 7.5%. Annual lipid monitoring on statins is no t necessary. Evaluate secondary causes of Triglycerid es greater than 500 mg/dL or LDL greater than 190 mg/dL: See table 6 of A CC/AHA Guideline. Lifestyle modification is a critical com ponent of ASCVD risk reduction. Specimen Anatomical Collection Method Collection Time Receive d Time (Source) Location / / Volume Laterality Blood 03/17/2022 11:44 03/17/2022 AM EDT 12:08 PM EDT Resulting Agency Comment Spec In Lab Alejo Garnett MD CHEMISTRY ORDERABLES Performing Organization Address City/State/[place] [address] Comprehensive hearing test (03/17/2022 9:51 AM EDT) Specimen (Source) Anatomical Collection Method Collection Time Re ceived Time Location / / Volume Laterality 03/17/2022 9:51 AM EDT Narrative AUDBASE COMP - 03/17/2022 9:51 AM EDT Audio eval in conjunction w/follow-up to Dr. 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 Avila). 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 Moody). To day, patient reported improved hearing LT but also continued LT ear drainage (seen in AM on pillow). RESULTS: Otoscopic check: non-occluding debris AU. ??Tympanogram: RT w/ Type A; LT w/ lg vol. (suggestive of non-intact TM given pre-op ECV of ??1.3cc in Oct 2021). Audiogram: essentially, mild loss through 1000 Hz AU then dropping to severe loss for the RT and severe to profound loss for the LT in the higher frequencies. Nature of loss appeared SN for each ear - but again, LT poorer than RT. ??When compared with results of January 2022, RT stable and LT i mproved significantly by 20-35 dB across several frequencies. Word recognition (using CD- recorded, MEEI 1/2 list at patient's reported MCL): RT=76% and LT= 64%. RECS: 1) Continued m edical management of hearing loss. 2) Reeval of hearing as per ENT; sooner if concerns arise of possible change in hearing. 3) follow- up appointment to managing instructor kindergarten for GARCIA needs - p rovided there are no medical contraindications to resuming GARCIA use at this time. Procedure Note Unknown - 03/17/2022Formatting of this n ote might be different from the original. Audio eval in conjunction w/follow-up to Dr. 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 Avila). 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 Moody). To day, patient reported improved hearing LT but also continued LT ear drainage (seen in AM on pillow). RESULTS: Otoscopic check: non-occluding debris AU. Tympanogram: RT w/ Type A; LT w/ lg vol. (suggestive of non-intact TM given pre-op ECV of 1.3cc in Oct 2021). Audiogram: es sentially, mild loss through 1000 Hz AU then dropping to severe loss for the RT and severe to profound loss for the LT in the higher frequencies. Nature of loss appeared SN for each ear - but again, LT poorer than RT. When compared with results of January 2022, RT stable and LT i mproved significantly by 20-35 dB across several frequencies. Word recognition (using CD- recorded, MEEI 1 list at patient's reported MCL): RT=76% and LT= 64%. RECS: 1) Continued m edical management of hearing loss. 2) Reeval of hearing as per ENT; sooner if concerns arise of possible change in hearing. 3) follow- up appointment to managing instructor kindergarten for GARCIA needs - p rovided there are no medical contraindications to resuming GARCIA use at this time. Mer Cunha [employer] ORDERABLE S Performing Organization Address City/State/ZIP Code Phon e Number AUDBASE COMP External Lab Results (02/24/2022)Only the most recent of5 resultswithin the time period is included. Narrative This result has an attachment that is no t available. Historical Provider CHEMISTRY ORDERABLES from Last 3 Months Insurance Payer Benefit Plan / Subscriber ID Effective Dates Phone Addre ss Type Group MEDICARE MEDICARE PART [id number] 2020-Prese [phone] [facility] [address] [place] [address] MUTUAL OF MUTUAL OF [id number] 2020-Presen MUTUAL OF [place] Ar[place] [address] Advance Directives Latest Code Status on File Code Status Date Activated Date Inactivated Comments Attempt Cardiopulmonary Resuscitation - 01/06/2022 10:33 PM 2021 5:05 PM Inpatient Code Status decision made by: Patient Attempt Cardiopulmonary Resuscitation - 10/22/2021 2:18 PM 10/24/19 22 4:38 AM Inpatient Code Status decision made by: Patient Full Code 06/16/2013 7:01 AM 06/27/2013 2:17 PM Order Status: Initial Order Does patient have decision making capacity? Yes, Order is based on Patients wishes. Full Code 06/21/2011 3:33 PM 06/24/2011 5:03 PM Care Teams Luggage Repairer Relationship Specialty Start Date End Date Violetta Sanford MD PCP - General 04/02/14 [address], [place] [address]
--- OUTSIDE RECORDS SUMMARY | 2022-05-24 10:45 | XMS_ITS | Encounter Summary ---
:1955 Author Organization [facility] [address] Care Team Providers Name Role Phone Violetta Sanford MD Primary Care Provider Encounter Details Date Type Department Care Team Description 05/19/2022 Travel Social History Tobacco Use Types Packs/Day Years [...] 05/26/2022 Office Visit Otolaryngology Ricardo Panda PA [facility] [place], [place] [address] (Wo rk) 06/02/2022 Infusion Hematology and Oncology 06/16/2022 Infusion Hematology and Oncology 06/21/2022 Office Visit Neurology Tyler Rojas MD [facility] [address] [place], [place] [phone] (Wo rk) 06/30/2022 Infusion Hematology and Oncology 07/14/2022 Infusion Hematology and Oncology 07/28/2022 Infusion Hematology and Oncology 08/11/2022 Infusion Hematology and Oncology 11/04/2022 Office Visit Rheumatology Dante Freedman PA [facility] RHEUMATOLOGY [place], [place] [address] (Wo rk) documented as of this encounter Visit Diagnoses Not on filedocumented in this encounter Care Teams Corporate Operations Compliance Manager Relationship Specialty Start Date End Date Violetta Sanford MD PCP - General 04/02/14 [address] [place] [address] documented as of this encounter
--- OUTSIDE RECORDS SUMMARY | 2022-05-24 10:45 | XMS_ITS | Encounter Summary ---
:1955 Author Organization [facility] [place] [address] Care Team Providers Name Role Phone Violetta Sanford MD Primary Care Provider Encounter Details Date Type Department Care Team Description 05/05/2022 Telephone Gastroenterology at [facility] Kimo Singh MD [facility] [place] [phone] GASTROENTEROLOGY [phone] [place], [place] [address] (Wo rk) Social History Tobacco [...] 05/26/2022 Office Visit Otolaryngology Ricardo Panda PA [facility] [address] [place] [address] (Wo rk) 06/02/2022 Infusion Hematology and Oncology 06/16/2022 Infusion Hematology and Oncology 06/21/2022 Office Visit Neurology Tyler Rojas MD [facility] Neurology [place], [place] [phone] (Wo rk) 06/30/2022 Infusion Hematology and Oncology 07/14/2022 Infusion Hematology and Oncology 07/28/2022 Infusion Hematology and Oncology 08/11/2022 Infusion Hematology and Oncology 11/04/2022 Office Visit Rheumatology Dante Freedman PA [facility] RHEUMATOLOGY [place], [place] [address] (Wo rk) documented as of this encounter Visit Diagnoses Not on filedocumented in this encounter Care Teams Glaze Handler Relationship Specialty Start Date End Date Violetta Sanford MD PCP - General 04/02/14 [address] [place] [address] documented as of this encounter
--- OUTSIDE RECORDS SUMMARY | 2022-05-24 10:45 | XMS_ITS | Encounter Summary ---
:1955 Author Organization [facility] [place] [address] Care Team Providers Name Role Phone Violetta Sanford MD Primary Care Provider Encounter Details Date Type Department Care Team Description 04/19/2022 Surgery Gastroenterology at [facility] Singh, Kimo Gilbert MD EGD WITH BIOPSY ([facility] 2.49) [place] [address] GASTROENTEROLOGY [place], [place] [address] Social History Tobacco Use Types Packs/Day Years [...] Sign Reading Time Taken Comments Blood Pressure 130/109 04/19/2022 9:20 AM EDT Pulse 68 04/19/2022 8:11 AM EDT Temperature 37.1 ??C (98.7 ??F) 04/19/2022 8:11 AM EDT Respiratory Rate 16 04/19/2022 9:30 AM EDT Oxygen Saturation 100% 04/19/2022 9:20 AM EDT Inhaled Oxygen - - Concentration Weight 129.7 kg (286 lb) 04/19/2022 8:11 AM with prothe sis on, EDT Height - - Body Mass Index 37.73 03/17/2022 10:48 AM EDT documented in this encounter Discharge Instructions Discharge InstructionsEunice Khan RN - 04/19/2022 9:18 AM EDT Upper GI Endoscopy: What to Expect at Home Your Recovery You will be able to go home after your doctor or nurse checks to make sure you are not having any problems. You may have to stay overnight if you had treatment during the test. You may have a sore throat for a day or two after the test. This care sheet gives you a general idea about what to expect after the test. How can you care for yourself at home? Activity Rest when you feel tired. You can do your normal activities when it feels okay to do so. Diet Follow your doctor's directions for eating. Unless your doctor has told you not to, drink plenty of fluids. This helps to replace the fluids that were lost during the prep. Do not drink alcohol. Medicines Your doctor will tell you if and when you can restart your medicines. He or she will also give you instructions about taking any new medicines. If you take blood thinners, such as warfarin (Coumadin), clopidogrel (Plavix), or aspirin, be sure to talk to your doctor. He or she will tell you if and when to start taking those medicines again. Make sure that you understand exactly what your doctor wants you to do. If polyps were removed or a biopsy was done during the test, your doctor may tell you not to take aspirin or other anti-inflammatory medicines for a few days. These include ibuprofen (Advil, Motrin) and naproxen (Aleve). If you have a sore throat the day after the procedure, use an iajl-tqm-ifedilh spray to numb your throat. Sucking on throat lozenges and gargling with warm salt water may also help relieve your symptoms. Other instructions For your safety, do not drive or operate machinery until the medicine wears off and you can think clearly. Your doctor may tell you not to drive or operate machinery until the day after your test. Do not sign legal documents or make major decisions until the medicine wears off and you can think clearly. The anesthesia can make it hard for you to fully understand what you are agreeing to. Additional Information for Sedation Patients For patients who received sedation: You may have received medications before and/or during your procedure which effects your judgement and reaction time. Do not drive, operate machinery, drink alcoholic beverages or make important decisions for 24 hours. Be careful on stairs as you may be unsteady on your feet. You may eat a regular diet as tolerated. Do not smoke if you are alone. IV site: Slight redness or tenderness is normal, you can use a warm compress if you would like. If tenderness and/or redness increase or if foul drainage occurs, please contact your Doctor. Please call [phone] before 8pm Mon-Fri with problems, questions or concerns. If you call after 8pm or on weekends, call the Hospital at [phone] and ask to speak to the Car Audio Installer communications department head and the dicer operator will contact that person for you. When should you call for help? Call [phone] anytime you think you may need emergency care. For example, call if: You passed out (lost consciousness). You pass maroon or bloody stools. You have trouble breathing. Call your doctor now or seek immediate medical care if: You have pain that does not get better after you take pain medicine. You are sick to your stomach or cannot drink fluids. You have new or worse belly pain. You have blood in your stools. You have a fever. You cannot pass stools or gas. Watch closely for changes in your health, and be sure to contact your doctor if you have any problems. Where can you learn more? [facility] View your After Visit Summary and more online at [email or web address] If you would like to provide feedback about your hospital experience, please call the Office of Patient and Family Relations at . If you have received this After Visit Summary in error, please immediately return it in person to the department, or notify the [facility] Privacy Office by calling toll free at between the hours of 8AM and 5PM to arrange for our retrieval of the documents at no cost to you. Content Version: 12.2 ?? [id number] [employer]. Care instructions adapted under license by [facility]. If you have questions about a medical condition or this instruction, always ask your healthcare professional. [employer] disclaims any warranty or liability for your use of this information. documented in this encounter Medications at Time of Discharge Medication Sig Dispensed Refills Start Date End Date CellCept 250 mg Take 2 capsules by 120 capsule 11 03/23/2022 CapsuleIndications: mouth twice daily Transplanted kidney Prograf 0.5 mg TAKE 1 CAPSULE BY 30 capsule 11 03/23/2022 CapsuleIndications: MOUTH NIGHTLY Transplanted kidney, Other complication of kidney transplant, Prophylactic immunotherapy Prograf 1 mg Take 1 capsule by 30 capsule 11 03/23/2022 CapsuleIndications: mouth once daily Transplanted kidney losartan (Cozaar) 25 Take 1 tablet by mouth 90 tablet 3 03/12/2023 mg Tablet every evening for 360 days. calciTRIoL Take 1 capsule by 90 capsule 3 03/17/2022 023 (Rocaltrol) 0.5 mcg mouth daily. Capsule guaiFENesin ER Take 1,200 mg by mouth 0 (Mucinex) 600 mg 2 times daily. Tablet Extended Release 12hr ipratropium-albuteroL Inhale into the lungs. 0 (Duoneb) 0.5 mg-3 mg(2.5 mg base)/3 mL Solution for Nebulization montelukast Take 10 mg by mouth 0 10/14/2021 (Singulair) 10 mg daily. Tablet FreeStyle Gilberto 2 1 each by 6 kit 3 08/07/2021 Sensor Kit Mis.(Non-Drug; Combo Route) route every 14 days. Use to continuously monitor blood glucose. Scan at least 4 times per day. FreeStyle Gilberto 2 Use to continuously 1 each 0 2 [place] Misc monitor blood glucose. Scan at least 5 times per day. umeclidinium-vilanter Inhale into the lungs 0 oL (Anoro Ellipta) daily. 62.5-25 mcg/actuation Disk with Device insulin aspart U-100 Inject 10-25 Units 0 (NovoLOG) Cartridge subcutaneously 2 times daily. Sliding scale hydrALAZINE Take 1 tablet by mouth 270 tablet 2 02/16/2021 (Apresoline) 100 mg 3 times daily. TabletIndications: Chronic atrial fibrillation FreeStyle Gilberto 14 1 each by 6 kit 3 01/13/2021 Day Sensor Kit [facility]Non-Drug; Combo Route) route every 14 days. Use to continuously monitor blood glucose. Scan at least 5 times per day. DX: E11.65 darbepoetin rcisty in Inject 300 mg as 0 polysorbat 10 mcg/0.4 directed as needed. mL Syringe cyanocobalamin, Take 100 mcg by mouth 0 Vitamin B-12, daily. (Vitamin B-12) 100 mcg Tablet Blood-Glucose Sensor by [facility]Non-Drug; 0 (Dexcom G6 Sensor) Combo Route) route. Device Sensor, reading efficiency course director andtransmitter metoprolol succinate Take 1 tablet by mouth 90 tablet 1 04/2020 XL (Toprol-XL) 50 mg daily. Tablet Sustained Release 24 hr amLODIPine (Norvasc) Take 0.5 tablets by 90 tablet 3 2019 10 mg Tablet mouth daily. fluticasone INSTILL 2 SPRAYS INTO 0 09/06/2019 propionate (FLONASE) EACH NOSTRIL ONCE A 50 mcg/actuation DAY NEEDED [place], Suspension multivitamin with Take 1 tablet by mouth 0 minerals Tablet Daily. LEVEMIR FLEXTOUCH Inject 50-80 Units 45 mL 11 02/13/2018 U-100 INSULN Insulin subcutaneously 2 times Pen daily. ICD 10 Code: E11.40 liraglutide (VICTOZA Inject 1.2 mg 6 mL 03/09/2017 3-FAZAL) 0.6 mg/0.1 mL subcutaneously daily. (18 mg/3 mL) Pen InjectorIndications: Type 2 diabetes mellitus with complication, with long-term current use of insulin insulin needles, 1 Device by 100 each 03/09/2017 disposable, 29 gauge Mis.(Non-Drug; Combo x 1/2 Route) route 3 times NeedleIndications: daily. Type 2 diabetes mellitus with complication, with long-term current use of insulin atorvastatin Take 1 tablet by mouth 90 tablet 3 02/03/2017 (LIPITOR) 20 mg daily. Tablet folic acid (FOLVITE) Take 2 tablets by 180 tablet 3 02/04/20 17 1 mg Tablet mouth daily. omeprazole (PRILOSEC) Take 1 capsule by 90 capsule 3 017 40 mg Capsule, mouth daily. Delayed Release(E.C.) acetaminophen Take 650 mg by mouth 0 (TYLENOL) 325 mg every 4 hours as Tablet needed for Pain. Reported on 08/06/2016 Miscellaneous Medical 4 Devices by 4 each 0 12/02/2015 Supply Mis.(Non-Drug; Combo MiscIndications: S/P Route) route daily. 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 albuterol (PROVENTIL) Take 3 mLs by 90 mL 3 08/29/2019 2.5 mg /3 mL (0.083 nebulization every 4 %) Solution for hours as needed for Nebulization Wheezing. primidone (Mysoline) Take 1 tablet by mouth 120 tablet 3 10/202105/04/2022 50 mg Tablet 4 times daily. ciprofloxacin Instill 3 drops in 5 mL 3 03/17/2022 (Ciloxan) 0.3 % Drops left ear twice daily. prednisoLONE acetate Instill 3 drops in 5 mL 0 022 04/21/2022 (Pred-Forte) 1 % left ear twice daily. Drops, Suspension documented as of this encounter H&P Notes Julia Will MD - 04/19/2022 8:36 AM EDT Procedure: EGD ?? Indication: Esophageal dysphagia? History of Present Illness: Leroy Torres is a 66 y.o. M PMH kidney transplant, afib, COPD, DM2, Charcot's arthropathy, BKA amputee, HLD who presents for EGD to evaluate esophageal dysphagia to solids and pills, with possible stricture in upper esophagus on barium swallow. ?? Patient Active Problem List Diagnosis Code ??? Amputee, below knee, L Z89.519 ??? 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ifestations E11.29 ??? Diabetes mellitus with neuropathy E11.40 ??? Charcot's arthropathy, diabetic, R E11.610 ??? Injury, other and unspecified, unspecified site T14.90XA ??? Tremor, essential G25.0 ??? Sensorineural hearing loss, bilateral H90.3 ??? Delayed wound healing T14.8XXD ??? Amputee, below knee Z89.519 ??? History of renal transplant Z94.0 ??? Immunosuppression D84.9 ??? H/O kidney transplant Z94.0 ?Appendicitis, sp appendectomy 06/16/13 K37 ??? Intermittent fever of unknown origin R50.9 ??? Tremor/tics R25.1 ??? Hyperglycemia R73.9 ??? Hydrocele N43.3 ??? Lower urinary tract symptoms R39.9 ??? Hyperlipidemia E78.5 ??? Reflux esophagitis K21.00 ??? COPD (chronic obstructive pulmonary disease) J44.9 ??? 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 Aftercare following organ transplant Z48.298 ??? Persistent proteinuria R80.1 ??? Prophylactic immunotherapy Z29.8 ??? Chronic atrial fibrillation I48.20 ??? CKD (chronic kidney disease) stage 4, GFR 15-29 ml/min N18.4 ??? Phantom limb pain G54.6 ??? PAF (paroxysmal atrial fibrillation) I48.0 ??? Hypervolemia E87.70 ??? Renal osteodystrophy N25.0 ??? 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 Renal tubular acidosis N25.89 ??? Essential hypertension I10 ??? Other complication of kidney transplant T86.19 ??? Immunocompromised state due to drug therapy D84.821, Z79.899 ??? Mixed conductive and sensorineural hearing loss of left ear with restricted hearing of right earH90.A32 ??? Otitis externa H60.90 ? Medications: Reviewed in EDH ?? Allergies Allergen Reactions ??? Iftikhar Inhibitors ? Cough ??? Clindamycin Hcl Rash ??? Doxycycline ? Allergenic Extracts ? Birch and Nut Trees, cats, dust, pollen bird feathers ??? Penicillins ? Tolerated cefepime 01/07 ??? Sulfamethoxazole ? Other reaction(s): Unknown ??? Sulfamethoxazole-Trimethoprim ? Trimethoprim ? Other reaction(s): Unknown ? Social History/Family History: Reviewed in EDH. No changes ?? Exam: No data found. Axox3, nad Anicteric, MMM CTAB RRR, no m/r/g abd soft nt nd +bs ?? Assessment and Plan: Proceed with EGD: ASA Grade: ASA 3 - Patient with moderate systemic disease with functional limitations Mallampati score:II (soft palate, uvula, fauces visible) Sedation plan: MAC Risks and benefits of the procedure were discussed with the patient. Consent has been signed. documented in this encounter Plan of Treatment Upcoming Encounters Date Type Specialty Care Team Description 05/26/2022 Office Visit Otolaryngology Ricardo Panda PA [facility] [place] [address] (Wo rk) 06/02/2022 Infusion Hematology and Oncology 06/16/2022 Infusion Hematology and Oncology 06/21/2022 Office Visit Neurology Tyler Rojas MD [facility] Neurology [place], [place] [phone] (Wo rk) 06/30/2022 Infusion Hematology and Oncology 07/14/2022 Infusion Hematology and Oncology 07/28/2022 Infusion Hematology and Oncology 08/11/2022 Infusion Hematology and Oncology 11/04/2022 Office Visit Rheumatology Dante Freedman PA [facility] RHEUMATOLOGY [place], [place] [address] (Wo rk) documented as of this encounter Procedures Procedure Name Priority Date/Time Associated Diagnosis Comme nts SPECIMEN TO Routine 04/19/2022 9:14 AM Results f or this PATHOLOGY EDT procedure are i n the results section. SPECIMEN TO Routine 04/19/2022 9:14 AM Results f or this PATHOLOGY EDT procedure are i n the results section. SPECIMEN TO Routine 04/19/2022 9:14 AM Results f or this PATHOLOGY EDT procedure are i n the results section. SPECIMEN TO Routine 04/19/2022 9:14 AM Results f or this PATHOLOGY EDT procedure are i n the results section. SURGICAL PATHOLOGY Routine 04/19/2022 8:57 AM Res ults for this REPORT EDT procedure are i n the results section. EGD WITH BIOPSY 04/19/2022 8:51 AM Dysphagia, (WRVU 2.49) EDT unspecified type UPPER GI ENDOSCOPY Routine 04/19/2022 8:39 AM Res ults for this EDT procedure are i n the results section. documented in this encounter Results Specimen to Pathology (04/19/2022 9:14 AM EDT) Specimen Anatomical Collection Method Collection Time Receive d Time (Source) Location / / Volume Laterality AP Specimen 04/19/2022 9:14 AM 9:14 EDT [address] [facility] - 04/19/2022 9:14 AM EDT Specimen requisition ordered. ??Separate Pathology report to follow Kimo Singh MD PATHOLOGY/CYTOLOGY ORDERABLE S Performing Organization Address [facility] [place] [address] Specimen to Pathology (04/19/2022 9:14 AM EDT) Specimen Anatomical Collection Method Collection Time Receive d Time (Source) Location / / Volume Laterality AP Specimen 04/19/2022 9:14 AM 9:14 EDT [address] [facility] - 04/19/2022 9:14 AM EDT Specimen requisition ordered. ??Separate Pathology report to follow Kimo Singh MD PATHOLOGY/CYTOLOGY ORDERABLE S Performing Organization Address City/[facility] [place] [address] Specimen to Pathology (04/19/2022 9:14 AM EDT) Specimen Anatomical Collection Method Collection Time Receive d Time (Source) Location / / Volume Laterality AP Specimen 04/19/2022 9:14 AM 2 9:14 EDT [address] [facility] - 04/19/2022 9:14 AM EDT Specimen requisition ordered. ??Separate Pathology report to follow Kimo Singh MD PATHOLOGY/CYTOLOGY ORDERABLE S Performing Organization Address City/[facility]/ZIP [place] [address] Specimen to Pathology (04/19/2022 9:14 AM EDT) Specimen Anatomical Collection Method Collection Time Receive d Time (Source) Location / / Volume Laterality AP Specimen 04/19/2022 9:14 AM 2 9:[address] ED[address] [facility] - 04/19/2022 9:14 AM EDT Specimen requisition ordered. ??Separate Pathology report to follow Kimo Singh MD PATHOLOGY/CYTOLOGY ORDERABLE S Performing Organization Address City/[facility]/ZIP [facility] [place] [address] Surgical Pathology Report (04/19/2022 8:57 AM EDT) Component Value Ref Test Analysis Performed At [facility] Range Method Time Signature Surgical [id number] ? Location: 4T; EA06; A [facility] Report The signing pathologist has (i) examined the relevant preparation(s) for the [facility] specimen(s) and (ii) rendered or confirmed the [...] Jaclyn Verified: ??04/26/2022 13:43 ??Pathologist Performed at: ??-[facility] Dept. of Pathology, [place], [place] DISCUSSION A, C - ??Yeast and [...] cm in greatest dimension. Tissue Description: Soft, aiekn-pink tissues. Sections/Processing: Submitted en toto ??in 1 cassette labeled D1. ??nrl Specimen (Source) Anatomical Collection Method Collection Time Re ceived Time Location / / Volume Laterality 04/19/2022 8:57 AM EDT Kimo Singh MD PATHOLOGY/CYTOLOGY ORDERABLE S Performing Organization Address City/State/[place] [address] UPPER GI ENDOSCOPY (04/19/2022 8:39 AM EDT) Component Value Ref Test Analysis Performed Pathologis t Range Method Time At Signature UPPER GI [facility] ENDOSCOPY Endoscopy Procedure Date: 04/19/2022 8:39 AM ? Patient Name: Leroy Torres ? Date of : 1955 ? Age: 66 ? Order #: [id number] ? Instrument Name: [id number] ? Procedure: ? Upper GI endoscopy Indications: [...] w as ? introduced through the sophie , and ? advanced to the second par [...] Procedure Code(s): ? --- Professional --- ? 25050, Esophagogastroduode noscopy, ? flexible, transoral; with biopsy, [...] R13.14, Dysphagia, ? pharyngoesophageal phase CPT copyright 2020 [employer]. All rights reserved. The codes documented in this report are preliminary and upon project management specialist review may be revised to meet current compliance requirements. Attending Participation: ? I was present and participated during the entire ? procedure, including non-martínez portions. ? Kimo Singh M.D. Kmio Singh, 04/19/2022 9:22:51 AM This report has been signed electronically. Number of Addenda: 0 Note Initiated On: 04/19/2022 8:39 AM Specimen (Source) Anatomical Collection Method Collection Time Re ceived Time Location / / Volume Laterality 04/19/2022 8:39 AM EDT Violetta Sanford MD GENERAL SURGICAL ORDERABLES Performing Organization Address City/State/ZIP Code Phon e Number [employer] documented in this encounter Visit Diagnoses Diagnosis Dysphagia, unspecified type documented in this encounter Administered Medications Inactive Administered Medications - up to 3 most recent administrations Medication Order MAR Action Action Date Dose Rate Site lactated ringers infusion New Bag 04/19/2022 8:48 AM EDT 100 mL/hr 100 mL/hr, Intravenous, CONTINUOUS, Starting on Tue04/19/22 at 0900, Until Tue04/19/22 at 0947, Endoscopy (Day of Procedure) New Bag 04/19/2022 8:30 AM EDT 100 mL/hr 100 mL/hr documented in this encounter Active and Recently Administered Medications Times are shown in EDT. Continuous Medication Order 04/17/2022 04/18/2022 04/19/2022 lactated ringers infusion (CANCELED) 0830 (New Bag - Provider: Nicky Garcia RN)0848 (New Bag - Provider: Shandra Martin CRNA)0913 (Stopped - Provider: Shandra Martin CRNA) 100 mL/hr, Intravenous, CONTINUOUS, Star ting on Tue04/19/22 at 0900, Until Tue04/19/22 at 0947, Endoscopy (Day of Procedure) documented in this encounter Care Teams Paediatrician Relationship Specialty Start Date End Date Violetta Sanford MD PCP - General 04/02/14 [address] [place] [address] documented as of this encounter
--- OUTSIDE RECORDS SUMMARY | 2022-05-24 10:45 | XMS_ITS | Encounter Summary ---
:1955 Author Organization [facility] [place] [address] Care Team Providers Name Role Phone Violetta Sanford MD Primary Care Provider Encounter Details Date Type Department Care Team Description 04/19/2022 Anesthesia Event [place] [facility] [place] [address] [phone] ANESTHESIOLOGY [place], [place] [address] Anesthesia Record Procedure Summary Procedure Name Responsible Anesthesia Start Anesthesia Stop Time Anesthesiologist Time EGD WITH BIOPSY Josué Gutierrez MD 04/19/22 0848 04/19/22 0913 (WRVU 2.49) (N/A Trunk) Events Date Time Event Comment 04/19/2022 0800 0848 AN Verify 0848 Start 0848 An Start Data 0853 An Induction 0853 Anesthesia Ready 0913 an stop data 0913 Recovery or ICU Handoff Patient care was transferred to the destination unit staff after review of the patient's medica l history, current anesthetic/surgi gabriel status and plan, according to the Provider Handoff Checklist. 0913 Stop Name Total Propofol 40 mg Propofol INF 304.8 mg Dexmedetomidine 6 mcg PHENYLephrine 160 mcg lactated ringers infusion 30 mL Agents Name O2 Air N2O O2 Auxiliary Flowmeter 1 Blood No blood administrations on file. Lines, Drains, and Airways Type Details Placement Removal (RETIRED) Hemodialysis arteriovenous fistula; 06/16/13 1622 by Access left, forearm Purnima Larose RN Incision 12/29/21; 0806; Left; 12/29/21 0806 by ear (myringotomy) Niyah Blair RN Incision 02/09/22; 0831; Left; 02/09/22 0831 by ear Andria Flores RN PIV 04/19/22; 0828; median 04/19/22 0828 by 04/19/22 0947 by cubital vein Nicky Garcia Elizab eth (antecubital fossa), R, RN R, RN right; [id number] catheter system; 20 gauge; Cecily Steele; tolerated well; 04/19/22; 0947 documented in this encounter Social History Tobacco Use Types Packs/Day Years [...] on file documented as of this encounter OR Notes Anesthesia Postprocedure Evaluation - Josué Gutierrez MD - 04/19/2022 9:31 AM EDT Department of Anesthesiology Post-procedure Note Patient: Leroy Torres Procedure Summary Date: 04/19/22 Room / Location: [facility] ENDO 2 / [facility] ENDOSCOPY Anesthesia Start: 847 Anesthesia Stop: 912 Procedure: EGD WITH BIOPSY (WRVU 2.49) (N/A Trunk) Diagnosis: Dysphagia, unspecified type (esophageal dysphagia. Please obtain panesophageal bx.) Surgeons: Kimo Singh MD Responsible Provider: Josué Gutierrez MD Anesthesia Type: MAC ASA Status: 3 All Anesthesia Providers: Anesthesiologist: Josué Gutierrez MD ESCROW MANAGER: Shandra Martin CRNA; Cesar Beltrán CRNA Vitals Value Taken Time BP 130/109 04/19/22 0920 Temp Pulse Resp 15 04/19/22 0920 SpO2 96 % 04/19/22 0931 Pain Level 0 04/19/22 0920 Vitals shown include unvalidated device data. Patient Location: PACU/SDP Level of Consciousness: Conscious but Sleepy Pain Management: Satisfactory Analgesia PONV: None Cardiovascular Status: At Baseline and Hemodynamically Stable Respiratory Status: Stable Respiratory Status and Supplemental O2 (NC or FM) Postoperative Fluid Status: Intravascular EUvolemia Possible Anesthetic Complications: NONE apparent at time of evaluation Final Primary Anesthesia Type: MAC (The anesthetic type performed was the same as planned.) Comments: Anesthesia Preprocedure Evaluation - Josué Gutierrez MD - 04/16/2022 10:28 PM EDT Pre-Anesthesia Evaluation for: Leroy Torres a 66 y.o. male. Procedure(s): EGD, UPPER GI ENDOSCOPY Patient Active Problem List Diagnosis Date Noted ??? Otitis externa 01/06/2022 ??? Mixed conductive and sensorineural hearing loss of left ear with restricted hearing of right ear12/04/2021 ??? Other complication of kidney transplant 10/20/2021 ??? Immunocompromised state due to drug therapy 10/20/2021 ??? Essential hypertension 11/25/2020 ??? Renal osteodystrophy 09/09/2020 ??? Other postherpetic nervous system involvement 09/09/2020 ??? Renal tubular acidosis 09/09/2020 ??? Hypervolemia 04/21/2020 ??? PAF (paroxysmal atrial fibrillation) 11/15/2019 ??? Phantom limb pain 09/20/2019 ??? Chronic atrial fibrillation 07/09/2019 ??? CKD (chronic kidney disease) stage 4, GFR 15-29 ml/min 07/09/2019 ??? Prophylactic immunotherapy 03/21/2019 ??? Persistent proteinuria 03/08/2017 ??? jail current use of immunosuppressive drug 07/23/2016 ??? Aftercare following organ transplant 07/23/2016 ??? Hyperlipidemia 04/03/2014 ??? Reflux esophagitis 04/03/2014 ??? COPD (chronic obstructive pulmonary disease) 04/03/2014 ??? Hydrocele 02/13/2014 ??? Lower urinary tract symptoms 02/13/2014 ?Appendicitis, sp appendectomy 06/16/13 06/19/2013 ??? Intermittent fever of unknown origin 06/19/2013 ??? Tremor/tics 06/19/2013 ??? Hyperglycemia 06/19/2013 ??? Immunosuppression 06/18/2013 ??? H/O kidney transplant 06/18/2013 ??? History of renal transplant 08/29/2012 ??? Amputee, below knee 03/17/2012 ??? Delayed wound healing 09/30/2011 ??? Sensorineural hearing loss, bilateral 08/11/2011 ??? Tremor, essential 03/31/2011 ??? Injury, other and unspecified, unspecified site 02/22/2011 ??? Diabetes mellitus with neuropathy 02/16/2011 ??? Charcot's arthropathy, diabetic, R 02/16/2011 ??? Amputee, below knee, L 08/02/2006 ??? 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ifestations 08/02/2006 No past medical history on file. Past Surgical History: Procedure Laterality Date ??? CREATED BY INTERFACE left BKA Procedure Date: Unknown ??? CREATED BY INTERFACE AV FISTULA CREATION, DIRECT HEMODIALYSIS, ANY SITE, EG ROSA FISTULA / LEFT Procedure Date: 11/13/2004 ??? CREATED BY INTERFACE CYSTO,STENT REMOVAL Procedure Date: 04/16/2008 ??? CREATED BY INTERFACE Entered not Verified Procedure Date: 09/24/2010 ??? CREATED BY INTERFACE KIDNEY TRANSPLANT - TRANSP / LEFT/RIGHT/CADAVERIC Procedure Date: 02/29/2008 ??? CREATED BY INTERFACE PREPARATION CADAVERIC RENAL ALLOGRAFT Procedure Date: 02/29/2008 ??? CREATED BY INTERFACE RECONSTRUCT CAD\LIVING DONOR RENAL VENOUS ANAS. Procedure Date: 02/29/2008 ??? CT GUIDED BIOPSY BONE MARROW 10/22/2021 CT Guided Biopsy Bone Marrow 10/22/2021 Richar Lo MD [facility] RAD CT SCAN ??? PRO AMPUTATION LOW LEG THRU TIB/FIB 06/21/2011 ??AMPUTATION, BELOW-KNEE performed by HENNA GAMINO JR at [facility] MAIN OR ??? PRO CREATE EARDRUM OPENING, GEN ANESTH Left 02/09/2022 MYRINGOTOMY, INSERTION OF TUBE (WRVU 2.01) performed by Archie Avila MD at [facility] MAIN OR ??? PRO INCISION EARDRUM,ASPIR Left 12/29/2021 MYRINGOTOMY ASPIRATION OF MIDDLE EAR (WRVU 1.38) performed by Iraj [place] MD at [facility] OR ??? PRO LAP, APPENDECTOMY 06/16/2013 LAPAROSCOPIC APPENDECTOMY performed by Angel Mccann MD at [facility] MAIN OR ??? PRO MICROSURG TECHNIQUES, REQ OPER MICROSCOPE Left 12/29/2021 MICROSCOPE USE (WRVU 3.46) performed by Iraj [place] MD at [facility] MAIN OR ??? PRO MICROSURG TECHNIQUES, REQ OPER MICROSCOPE Left 02/09/2022 MICROSCOPE USE (WRVU 3.46) performed by Archie Avila MD at [facility] OR ??? US RENAL TRANSPLANT LEFT Left 06/26/2019 US Renal Transplant Left 06/26/2019 [facility] RAD ULTRASOUND Social History Tobacco Use ??? Smoking status: Former Smoker Packs/day: 2.00 Years: 20.00 Pack years: 40.00 Types: Cigarettes Quit date: 01/19/1993 Years since quittin.2 ??? Smokeless tobacco: Never Used Substance Use Topics ??? Alcohol use: Yes Comment: Once a year Social History Substance and Sexual Activity Drug Use No Allergies Allergen Reactions ??? Iftikhar Inhibitors Cough ??? Clindamycin Hcl Rash ??? Doxycycline ??? Allergenic Extracts Birch and Nut Trees, cats, dust, pollen bird feathers ??? Penicillins Tolerated cefepime 01/07 ??? Sulfamethoxazole Other reaction(s): Unknown ??? Sulfamethoxazole-Trimethoprim ??? Trimethoprim Other reaction(s): Unknown Medications: MAR and/or home medications have been reviewed. Physical Exam: Preprocedure Vitals Current as of 04/16/22 2228 No BP, pulse, respiration, SpO2, or temperature recorded. Height: Weight: BMI: IBW: Airway Assessment: Mallampati: II Neck ROM: full Cardiovascular Assessment: system normal Pulmonary Assessment: pulmonary exam normal Dental Assessment: (+) edentulous Misc Assessment: IV access: Peripheral line Last Filed Perioperative Cognitive Screening None Anesthesia Plan: ASA 3 MAC, with a(n) intravenous induction 66 yo male with hx of PAF, chronic anemia, HLD, HTN, GERD, COPD, IDDM, CKD s/p renal transplant, wheel chair bound and dysphagia here for EGD Anesthesia hx: difficult mask, 2 person 2 hand with oral airway. 7.5 ETT in 2013 and LMA5 in 2019. Stress test 2014: no WMA. EF 70%. No inducible ST segment changes with exercise. No valvulopathy. Allergy: -- Iftikhar Inhibitors -- Cough -- Clindamycin Hcl -- Rash -- Doxycycline -- Allergenic Extracts -- Birch and Nut Trees, cats, dust, pollen bird feathers -- Penicillins -- Tolerated cefepime 01/07 -- Sulfamethoxazole -- Other reaction(s): Unknown -- Sulfamethoxazole-Trimethoprim -- Trimethoprim -- Other reaction(s): Unknown Patient Vitals in the past 24 hrs: BP Readings from Last 3 Encounters: 04/07/22 : 159/57 03/24/22 : 149/51 03/17/22 : 140/70 Labs: Lab Results Component Value Date WBC 6.8 03/17/2022 HGB 9.4 (L) 03/17/2022 HCT 30.7 (L) 03/17/2022 MCV 94.8 (H) 03/17/2022 PLATELET 180 03/17/2022 Lab Results Component Value Date NA 139 03/17/2022 K 4.9 03/17/2022 CL 108 (H) 03/17/2022 CO2 21 (L) 03/17/2022 BUN 29 (H) 03/17/2022 CREATININE 3.16 (H) 03/17/2022 GLUCOSE 116 03/17/2022 GLUCFASTING 248 (H) 03/15/2018 CALCIUM 8.8 03/17/2022 ESTGFR 21 (L) 03/17/2022 Lab Results Component Value Date ALT 15 03/17/2022 AST 16 03/17/2022 ALKPHOS 131 (H) 03/17/2022 BILITOT 0.2 03/17/2022 BILIDIR 0.2 08/06/2016 ALBUMIN 3.2 03/17/2022 PROT 6.9 03/17/2022 Lab Results Component Value Date PT 12.7 (H) 10/22/2021 PTT 30 10/22/2021 Lab Results Component Value Date TSH 3.91 10/05/2021 Lab Results Component Value Date HA1C 6.4 (H) 10/05/2021 Glucose Lvl Date Value Ref Range Status 03/17/2022 116 65 - 199 mg/dL Final Comment: Diabetes: >=200 mg/dL plus symptoms NPO >4 METS No active GERD Plan: MAC with PIV access and standard ASA monitors. The patient was informed of the risks, benefits and alternatives of anesthesia. These risks included, but were not limited to, post-operative nausea and/or vomiting, pain, sore throat, dental/lip trauma, and other rare but serious complications such as major organ damage, awareness, severe allergic reactions, position-related nerve injuries, corneal abrasion/blindness and need blood transfusions. Allquestions were sought and answered. Consent was signed and placed in chart. Region - Other Informed Consent: Anesthetic plan and risks discussed with patient. Plan discussed with ESCROW MANAGER. Anesthesia Screening documented in this encounter Plan of Treatment Upcoming Encounters Date Type Specialty Care Team Description 05/26/2022 Office Visit Otolaryngology Ricardo Panda PA [facility] Dr [place] MD 0375 (Wo rk) 06/02/2022 Infusion Hematology and Oncology 06/16/2022 Infusion Hematology and Oncology 06/21/2022 Office Visit Neurology Tyler Rojas MD [facility] Neurology [place], [place] [phone] (Wo rk) 06/30/2022 Infusion Hematology and Oncology 07/14/2022 Infusion Hematology and Oncology 07/28/2022 Infusion Hematology and Oncology 08/11/2022 Infusion Hematology and Oncology 11/04/2022 Office Visit Rheumatology Dante Freedman PA [facility] RHEUMATOLOGY [place], [place] [address] (Wo rk) documented as of this encounter Visit Diagnoses Not on filedocumented in this encounter Administered Medications Inactive Administered Medications - up to 3 most recent administrations Medication Order MAR Action Action Date Dose Rate Site dexmedeTOMIDine (Precedex) (4 Given 04/19/2022 8:53 AM EDT 6 mcg mcg/mL) bolus injection (Anesthsia) Intravenous, PRN, Starting on Tue04/19/22 at 0853, Until Tue04/19/22 at 0913, Anesthesia Intra-op, Routine lactated ringers infusion New Bag 04/19/2022 8:48 AM EDT 100 mL/hr 100 mL/hr, Intravenous, CONTINUOUS, Starting on Tue04/19/22 at 0900, Until Tue04/19/22 at 0947, Endoscopy (Day of Procedure) New Bag 04/19/2022 8:30 AM EDT 100 mL/hr 100 mL/hr PHENYLephrine in NS (PF) (SHELLEY-SYNEPHRINE) 0.8 Given 9:13 AM EDT 80 mcg mg/10 mL (80 mcg/mL) multi-dose injection Syrg Intravenous, PRN, Starting on Tue04/19/22 at 0859, Until Tue04/19/22 at 0913, Anesthesia Intra-op, Routine Given 04/19/2022 8:59 AM EDT 80 mcg propofoL (Diprivan) (10 Rate/Dose 04/19/2022 8:55 150 mcg/kg/min 116 .73 mg/mL) infusion Change AM EDT mL/hr Intravenous, CONTINUOUS PRN, Starting on Tue04/19/22 at 0853, Until Tue04/19/22 at 0913, Anesthesia Intra-op, Routine New Bag 04/19/2022 8:53 AM EDT 200 mcg/kg/min 155.64 mL/hr propofoL (Diprivan) 10 mg/mL bolus injection Given 8:53 AM EDT 40 mg (Anesthesia) Intravenous, PRN, Starting on Tue04/19/22 at 0853, Until Tue04/19/22 at 0913, Anesthesia Intra-op documented in this encounter Care Teams Photographer'S Assistant Relationship Specialty Start Date End Date Violetta Sanford MD PCP - General 04/02/14 [address] [place] [address] documented as of this encounter
--- OUTSIDE RECORDS SUMMARY | 2022-05-24 10:45 | XMS_ITS | Encounter Summary ---
:1955 Author Organization [facility] [place] [address] Care Team Providers Name Role Phone Violetta Sanford MD Primary Care Provider Encounter Details Date Type Department Care Team Description 05/14/2022 [place] [facility] [place] Melly Arambula MD [facility] [place] [address] GASTROENTEROLOGY [phone] [place], [place] [address] (Wo rk) Social History Tobacco [...] this encounter Miscellaneous Notes Addendum Note - Melly Arambula MD - 05/17/2022 7:17 AM EDT Addended by: MELLY ARAMBULA on: 05/17/2022 07:17 AM Modules accepted: Orders Telephone Encounter - Melly Arambula MD - 05/14/2022 10:21 PM EDT Called pt to let him know tacrolimus levels are stable and to continue same dose. Pt requests that the next lab draw be sent to [facility]. Melly Arambula MD Advanced Endoscopy Fellow Department of Gastroenterology documented in this encounter Plan of Treatment Upcoming Encounters Date Type Specialty Care Team Description 05/26/2022 Office Visit Otolaryngology Ricardo Panda PA [facility] [address] [place] [address] (Wo rk) 06/02/2022 Infusion Hematology and Oncology 06/16/2022 Infusion Hematology and Oncology 06/21/2022 Office Visit Neurology Tyler Rojas MD [facility] Neurology [place], [place] [phone] (Wo rk) 06/30/2022 Infusion Hematology and Oncology 07/14/2022 Infusion Hematology and Oncology 07/28/2022 Infusion Hematology and Oncology 08/11/2022 Infusion Hematology and Oncology 11/04/2022 Office Visit Rheumatology Dante Freedman PA [facility] RHEUMATOLOGY [place], [place] [address] (Wo rk) Scheduled Orders Name Type Priority Associated Diagnoses Order S chedule Tacrolimus level Lab Routine Monika esophagitis Expe cted: 05/24/2022 (Approximate), Expires: 11/23/2022 documented as of this encounter Visit Diagnoses Diagnosis Monika esophagitis - Primary Candidiasis of the esophagus documented in this encounter Care Teams Breaker Mechanic Relationship Specialty Start Date End Date Violetta Sanford MD PCP - General 04/02/14 [facility] [address] [place] [address] documented as of this encounter
--- OUTSIDE RECORDS SUMMARY | 2022-05-24 10:45 | XMS_ITS | Encounter Summary ---
:1955 Author Organization [facility] Address [address] [place] [address] Care Team Providers Name Role Phone Suhas Ramirez MD Primary Care Provider Unavailable Unknown, Provider Primary Care Provider Encounter Details Date Type Department Care Team Description 11/15/2003 Results Only [facility] - Chris Mccollum MD conversion [id number] [place] [address] [phone] Social History Tobacco Use Types Packs/Day Years Used Date Never Assessed Sex Assigned at Date Recorded Not on file documented as of this encounter Plan of Treatment Not on filedocumented as of this encounter Procedures Procedure Name Priority Date/Time Associated Diagnosis Comme nts SURGICAL PATHOLOGY Routine 11/15/2003 0:00 EDT Re sults for this procedure are i n the results section. documented in this encounter Results SURGICAL PATHOLOGY (11/15/2003 0:00 EDT) Pathology Report: SURGICAL PATHOLOGY REPORT [facility] Reports generated via electronic interface contain lee ginal data; LAB however they are lacking the format of the original re port. Caution should be taken when reading/interpreting unfo rmatted reports. Name: ? BRETT TORRES ? Accession #: ? [id number] ? : ? 1955 (Age: 48) ??M ? Collect Date: ? 11/15/2003 ? Location: ? [facility] ? Receive Date: ? 004 ? Provider: CHRIS JOHNSON MD Copy to: SUHAS RAMIREZ MD ? Final Pathologic Diagnosis: ? Hydrocele sac, right, excision: - Fibrovascular adipose tissue with mild chronic inflammation consistent with hydrocele sac. Document reviewed and electronically signed by: SHARMIN YOUSSEF MD Report ??Date: 11/19/2003 15:30 By the signature above, the attending physician certif ies that he/she has personally conducted a gross and/or microscopic examin ation of the described specimens and rendered or confirmed the above diagnosi s. Specimen(s) Received: ? R hydrocele sac Clinical History: ? R hydrocele Gross Description: ? Received in formalin labelled Brian and R h ydrocele sac are two irregular shaped, aiken to aiken-joy, firm to rubbery pie mariella of thickened, fibromembranous tissue, whic h measure 5.5 x 4.2 x 0.5 cm and 5.5 x 3.2 x 0.3 cm. There are no discrete nodules noted. ??A representati ve section of each is submitted as (A1) and (A2). ??(Suki Cottrell/shani ? End of Report Specimen Performing Organization Address City/State/ZIP Code Phon e Number [facility] [address] [place] [address] [facility] [address] [place] [address] documented in this encounter Visit Diagnoses Not on filedocumented in this encounter Care Teams Stencil Sprayer Relationship Specialty Start Date End Date Suhas Ramirez MD PCP - General 10/09/09 04/05/16 Unknown, MD Javon PCP - General 09/30/09 10/08/09 documented as of this encounter
--- OUTSIDE RECORDS SUMMARY | 2022-05-24 10:45 | XMS_ITS | Encounter Summary ---
:1955 Author Organization [facility] [place] [address] Care Team Providers Name Role Phone Violetta Sanford MD Primary Care Provider Reason for Visit Reason Comments Injections Aranesp Treatment/Therapy Plan Authorization (Routine) - Authorized Specialty Diagnoses / Procedures Referred By Contact Refer red To Contact Hematology and Diagnoses CKD (chronic kidney disease) stage 4, GFR 15-29 ml/min Nicky Baez Hem Onc Office Oncology Procedures ALFREDA Ramirez MD [address] [place] [address] HEMATOLOGY/ONCOLOGY [id number] [place] [address] Referral ID Status Reason Start Date Expiration Date Visits V isits Requested Authorized [id number] Authorized 10/08/2020 06/23/2022 99 99 Encounter Details Date Type Department Care Team Description 04/07/2022 Infusion Hematology Oncology at [facility] of chronic renal [facility] failure, stage 4 (severe) [address] [place] [address] [phone] Social History Tobacco Use Types Packs/Day Years Used Date Former Smoker Cigarettes 2 20 Quit: 01/19/19 93 Smokeless Tobacco: Never Used Alcohol Use Standard Drinks/Week Comments Yes 0 (1 standard drink = 0.6 oz pure alcoho l) Once a year Alcohol Habits Answer Date Recorded How often do you have a drink containing alcohol? Not asked How many drinks containing alcohol do you have on a typical Not asked day when you are drinking? How often do you have six or more drinks on one occasion? No t asked Comment: Once a year 04/20/2018 Sex Assigned at Date Recorded Not on file documented as of this encounter Last Filed Vital Signs Vital Sign Reading Time Taken Comments Blood Pressure 159/57 04/07/2022 12:13 PM EDT Pulse - - Temperature 36.7 ??C (98.1 ??F) 04/07/2022 12:13 PM EDT Respiratory Rate 16 04/07/2022 12:13 PM EDT Oxygen Saturation 98% 04/07/2022 12:13 PM EDT Inhaled Oxygen Concentration - - Weight - - Height - - Body Mass Index - - documented in this encounter Progress Notes Jumana Saab RN - 04/07/2022 12:00 PM EDT .INFUSION THERAPY ADMINISTRATION NOTES DIAGNOSIS: Iron Deficiency/CKD REASON FOR VISIT: Aranesp SUBJECTIVE Reuben offers no complaints. OBJECTIVE LAB DATA: Latest Reference Range & Units 03/17/22 11:44 RBC 4.58 - 5.54 x10(6)/mcL 3.24 (L) Hemoglobin 13.7 - 16.5 g/dL 9.4 (L) Hematocrit 40.5 - 48.5 % 30.7 (L) MCV 82.9 - 93.1 fL 94.8 (H) MCH 27.5 - 32.1 pg 29.0 MCHC 32.0 - 35.7 g/dL 30.6 (L) RDWSD 36.0 - 45.0 fL 49.7 (H) RDWCV 11.4 - 13.8 % 14.5 (H) Platelets 145 - 357 x10(3)/mcL 180 MPV 7.6 - 12.[address] % 0.7 - 2.6 % 2.[address] Abs 0.030 - 0.120 x10(6)/mcL 0.070 Immature Retic% 0.0 - 15.6 % 22.5 (H) Reticulated Hgb 31.3 - 40.2 pg 25.9 (L) nRBC % Auto % 0.0 nRBC Abs Auto 0.000 - 0.000 x10(3)/mcL 0.000 Neutr Abs (ANC) 1.70 - 6.10 x10(3)/mcL 3.90 Neutrophils % % 57.0 Immature Gran % % 0.10 Lymphocytes % % 28.1 Monocytes % % 10.1 Eosinophils % % 4.4 Basophils % % 0.3 Courtney Gran Abs 0.00 - 0.04 x10(3)/mcL 0.01 Lymphocytes Abs 0.9 - 3.2 x10(3)/mcL 1.9 Monocyte Abs 0.3 - 0.9 x10(3)/mcL 0.7 Eosinophils Abs 0.0 - 0.4 x10(3)/mcL 0.3 Basophils Abs 0.0 - 0.1 x10(3)/mcL 0.0 Sodium 135 - 145 mmol/L 139 Potassium 3.5 - 5.0 mmol/L 4.9 Chloride 98 - 107 mmol/L 108 (H) CO2 22 - 31 mmol/L 21 (L) Anion Gap 5 - 15 mmol/L 10 BUN 10 - 20 mg/dL 29 (H) Creatinine 0.80 - 1.50 mg/dL 3.16 (H) Estimated GFR >=60 mL/min/1.73 m?? 21 (L) Calcium 8.5 - 10.5 mg/dL 8.8 Magnesium 0.69 - 1.07 mmol/L 0.71 Phosphorus 2.5 - 4.5 mg/dL 3.4 Uric Acid 3.5 - 8.5 mg/dL 8.1 Glucose Lvl 65 - 199 mg/dL 116 Total Protein 6.1 - 8.0 g/dL 6.9 Albumin 3.2 - 5.2 g/dL 3.2 Total Bilirubin 0.2 - 1.3 mg/dL 0.2 Alk Phos 40 - 130 unit/L 131 (H) AST 0 - 39 unit/L 16 ALT 0 - 55 unit/L 15 (L): Data is abnormally low (H): Data is abnormally high Pre administration: Medication orders independently verified for drug name, route, and dosage per patient's height, weight and BSA by Jumana Saab RN and [facility]. REACTIONS (DESCRIPTION, TIME, INTERVENTION AND EFFECTIVENESS) none ASSESSMENT Reuben was awake, alert and tolerated treatment well. Aranesp given in [place]. PLAN Return to clinic in 2 weeks. documented in this encounter Plan of Treatment Upcoming Encounters Date Type Specialty Care Team Description 05/26/2022 Office Visit Otolaryngology Ricardo Panda PA [facility] [place] [address] (Wo rk) 06/02/2022 Infusion Hematology and Oncology 06/16/2022 Infusion Hematology and Oncology 06/21/2022 Office Visit Neurology Tyler Rojas MD [facility] [place], [place] [phone] (Wo rk) 06/30/2022 Infusion Hematology and Oncology 07/14/2022 Infusion Hematology and Oncology 07/28/2022 Infusion Hematology and Oncology 08/11/2022 Infusion Hematology and Oncology 11/04/2022 Office Visit Rheumatology Dante Freedman PA [facility] RHEUMATOLOGY [place], [place] [address] (Wo rk) documented as of this encounter Visit Diagnoses Diagnosis Anemia of chronic renal failure, stage 4 (severe) documented in this encounter Administered Medications Inactive Administered Medications - up to 3 most recent administrations Medication Order MAR Action Action Date Dose Rate Site darbepoetin cristy-polysorbate Given 04/07/2022 12:16 PM 300 mcg Right Arm (Aranesp) (300 mcg/0.6 mL) EDT injection 300 mcg 300 mcg, Subcutaneous, ONCE, 1 dose, On Tue04/07/22 at 1200, Hold parameters for MDS and chemotherapy-induced anemia: Hemoglobin greater than or equal to 10 gm/dL Hematocrit greater than or equal to 30% Hold parameters for CKD: Hemoglobin greater than or equal to 12 gm/dL Hematocrit greater than or equal to 36%, Routine, What is the indication of use? Chronic Kidney Disease (CKD) documented in this encounter Care Teams Director Product Safety Relationship Specialty Start Date End Date Violetta Sanford MD PCP - General 04/02/14 [address] [place] [address] documented as of this encounter
--- OUTSIDE RECORDS SUMMARY | 2022-05-24 10:45 | XMS_ITS | Encounter Summary ---
:1955 Author Organization [facility] [place] [address] Care Team Providers Name Role Phone Violetta Sanford MD Primary Care Provider Encounter Details Date Type Department Care Team Description 05/10/2022 Telephone Gastroenterology at [facility] [place] [phone] Social History Tobacco Use Types Packs/Day [...] this encounter Miscellaneous Notes Telephone Encounter - Breanne Bridges - 05/10/2022 3:36 PM EDT Inbound/Outbound: INBOUND Spoke to Patient/Left Message: Spoke to patient Notes: Patient called wondering why Dr. Singh had asked him to have lab work today, [facility] This author reviewed chart and found that the labs had not been ordered. Will plan for fluconazole 400mg tomorrow and then 100mg daily for the remaining 13 days. ?? Tacrolimus trough on 05/10, and again on 05/24. ?? It appears the fluconazole will also interact with his primidone, so will have pt monitor sx and call if any develop. ?? Kimo Singh MD [facility] Endoscopy Fellow Department of Gastroenterology ?9:13 AM Return calls can be handled by: Dr. Singh or pancreas nurse documented in this encounter Plan of Treatment Upcoming Encounters Date Type Specialty Care Team Description 05/26/2022 Office Visit Otolaryngology Ricardo Panda PA [facility] [address] [place], [place] [address] (Wo rk) 06/02/2022 Infusion Hematology and Oncology 06/16/2022 Infusion Hematology and Oncology 06/21/2022 Office Visit Neurology Tyler Rojas MD [facility] Neurology [place], [place] [phone] (Wo rk) 06/30/2022 Infusion Hematology and Oncology 07/14/2022 Infusion Hematology and Oncology 07/28/2022 Infusion Hematology and Oncology 08/11/2022 Infusion Hematology and Oncology 11/04/2022 Office Visit Rheumatology Dante Freedman PA [facility] [place] [place], [place] [address] (Wo rk) Scheduled Orders Name Type Priority Associated Diagnoses Order S chedule Tacrolimus level Lab Routine Monika esophagitis Expe cted: 05/24/2022 (Approximate), Expires: 11/23/2022 documented as of this encounter Results Tacrolimus level (05/13/2022 11:34 AM EDT) P athologist Signature Tacrolimus Lvl 3.6 ng/mL [facility] Comment: Trough therapeutic range is [...] Organization Address City/State/ZIP Code Phon e Number [place] [phone] documented in this encounter Visit Diagnoses Diagnosis Monika esophagitis Candidiasis of the esophagus documented in this encounter Care Teams Brake Lining Curer Relationship Specialty Start Date End Date Violetta Sanford MD PCP - General 04/02/14 [address] [place] [address] documented as of this encounter
--- OUTSIDE RECORDS SUMMARY | 2022-05-24 10:45 | XMS_ITS | Encounter Summary ---
:1955 Author Organization [facility] Address [address] [place] [address] Care Team Providers Name Role Phone Suhas Ramirez MD Primary Care Provider Unavailable Unknown, Provider Primary Care Provider Encounter Details Date Type Department Care Team Description 06/03/2003 Results Only [facility] Perkins MD Maple conversion [address] [facility] [address] [id number] [phone] Social History Tobacco Use Types Packs/Day Years Used Date Never Assessed Sex Assigned at Date Recorded Not on file documented as of this encounter Plan of Treatment Not on filedocumented as of this encounter Procedures Procedure Name Priority Date/Time Associated Diagnosis Comme [facility] SURGICAL PATHOLOGY Routine 06/03/2003 0:00 EST Re sults for this procedure are i n the results section. documented in this encounter Results SURGICAL PATHOLOGY (06/03/2003 0:00 EST) Pathology Report: SURGICAL PATHOLOGY REPORT MOIS[facility]S GRAY Reports generated via electronic interface contain lee ginal data; LAB however they are lacking the format of the original re port. Caution should be taken when reading/interpreting unfo rmatted reports. Name: ? BRETT DAILEY ? Accession #: ? [id number] ? : ? 1955 (Age: 48) ??M ? Collect Date: ? 06/03/2003 ? Location: ? [facility] ? Receive Date: ? 003 ? Provider: GONZALEZ PERKINS MD Copy to: SUHAS RAMIREZ MD ? Final Pathologic Diagnosis: ? Colon, descending, 50.0 cm, polyp, polypectomy: - Tubular adenoma. Document reviewed and electronically signed by: SHARMIN YOUSSEF MD Report ??Date: 06/05/2003 14:39 By the signature above, the attending physician certif ies that he/she has personally conducted a gross and/or microscopic examin ation of the described specimens and rendered or confirmed the above diagnosi s. Specimen(s) Received: ? Descending colon bx 50.0 cm Clinical History: ? Screening Gross Description: ? Received in Hollande' s fixative labelled Burnett and descending colon 50.0 cm bx are two aiken soft tissue biopsies, 0.2 x 0.2 x 0.1 cm and 0.3 x 0.2 x 0.1 cm. ??The specimen is en tirely submitted in one cassette. ??(Suki Randle)/[facility] End of Report Specimen Performing Organization Address City/State/ZIP Code Phon e Number [facility] [address] [place] [address] [facility] [address] [place] [address] documented in this encounter Visit Diagnoses Not on filedocumented in this encounter Care Teams Photoradio Operator Relationship Specialty Start Date End Date Suhas Ramirez MD PCP - General 10/09/09 04/05/16 Unknown, MD Javon PCP - General 09/30/09 10/08/09 documented as of this encounter
--- OUTSIDE RECORDS SUMMARY | 2022-05-24 10:45 | XMS_ITS | Encounter Summary ---
:1955 Author Organization [facility] [place] [address] Care Team Providers Name Role Phone Violetta Sanford MD Primary Care Provider Reason for Visit Reason Comments Injections Aranesp Treatment/Therapy Plan Authorization (Routine) - Authorized Specialty Diagnoses / Procedures Referred By Contact Refer red To Contact Hematology and Diagnoses CKD (chronic kidney disease) stage 4, GFR 15-29 ml/min Nicky Baez Rust Hem Onc Office Oncology Procedures ALFREDA Ramirez MD [address] [place] [address] HEMATOLOGY/ONCOLOGY [id number] [place] [address] Referral ID Status Reason Start Date Expiration Date Visits V isits Requested Authorized [id number] Authorized 10/08/2020 06/23/2022 99 99 Encounter Details Date Type Department Care Team Description 04/21/2022 Infusion Hematology Oncology at [facility] D (chronic kidney disease) [facility] stage 4, GFR 15-29 ml/min [address] [place] [phone] Social History Tobacco Use Types [...] documented as of this encounter Progress Notes Lindsay Lerma RN - 04/21/2022 12:00 PM EDT .INFUSION THERAPY ADMINISTRATION NOTES DIAGNOSIS: Iron Deficiency/CKD REASON FOR VISIT: Aranesp SUBJECTIVE Reuben offers no complaints. OBJECTIVE LAB DATA: From 04/21/22: WBC 6.09, HGB 9.8, HCT 31.9, PLT 150, ANC 3.52 Pre administration: Medication orders independently verified for drug name, route, and dosage per patient's height, weight and BSA by Lindsay Lerma RN and [facility]. REACTIONS (DESCRIPTION, TIME, INTERVENTION AND EFFECTIVENESS) none ASSESSMENT Reuben was awake, alert and tolerated treatment well. Aranesp given in [place]. PLAN Return to clinic in 2 weeks. documented in this encounter Plan of Treatment Upcoming Encounters Date Type Specialty Care Team Description 05/26/2022 Office Visit Otolaryngology Ricardo Panda PA [facility] [address] [place], [place] [address] (Oscar escobedo) 06/02/2022 Infusion Hematology and Oncology 06/16/2022 Infusion Hematology and Oncology 06/21/2022 Office Visit Neurology Tyler Rojas MD [facility] Neurology [place], [place] [phone] (Oscar escobedo) 06/30/2022 Infusion Hematology and Oncology 07/14/2022 Infusion Hematology and Oncology 07/28/2022 Infusion Hematology and Oncology 08/11/2022 Infusion Hematology and Oncology 11/04/2022 Office Visit Rheumatology Dante Freedman PA [facility] [place], [place] [address] (Oscar escobedo) documented as of this encounter Visit Diagnoses Diagnosis CKD (chronic kidney disease) stage 4, GF R 15-29 ml/min Chronic kidney disease, Stage IV (severe ) documented in this encounter Administered Medications Inactive Administered Medications - up to 3 most recent administrations Medication Order MAR Action Action Date Dose Rate Site darbepoetin cristy-polysorbate Given 04/21/2022 11:54 AM 300 mcg Right Arm (Aranesp) (300 mcg/0.6 mL) EDT injection 300 mcg 300 mcg, Subcutaneous, ONCE, 1 dose, On Tue04/21/22 at 1130, Hold parameters for MDS and chemotherapy-induced anemia: Hemoglobin greater than or equal to 10 gm/dL Hematocrit greater than or equal to 30% Hold parameters for CKD: Hemoglobin greater than or equal to 12 gm/dL Hematocrit greater than or equal to 36%, Routine, What is the indication of use? Chronic Kidney Disease (CKD) documented in this encounter Care Teams Fleet Administrator Relationship Specialty Start Date End Date Violetta Sanford MD PCP - General 04/02/14 [address] [place] [address] documented as of this encounter
--- OUTSIDE RECORDS SUMMARY | 2022-05-24 10:45 | XMS_ITS | Encounter Summary ---
:1955 Author Organization [facility] [place] [address] Care Team Providers Name Role Phone Violetta Sanford MD Primary Care Provider Encounter Details Date Type Department Care Team Description 04/21/2022 Office Visit Hematology/Oncology Nicky Baez of chronic renal failure, stage 4 (severe); at [facility] MD James H/O kidney transplant [address] [place] [phone] HEMATOLOGY/ONCOLOGY [phone] DEPT. [place], [place] [address] (Wo rk) Social History Tobacco Use Types [...] Sign Reading Time Taken Comments Blood Pressure 159/49 04/21/2022 11:18 AM EDT Pulse 73 04/21/2022 11:18 AM EDT Temperature 36.8 ??C (98.2 ??F) 04/21/2022 11:18 AM EDT Respiratory Rate 16 04/21/2022 11:18 AM EDT Oxygen Saturation 99% 04/21/2022 11:18 AM EDT Inhaled Oxygen Concentration - - Weight 127.9 kg (282 lb) 04/21/2022 11:18 AM EDT Height 185.4 cm (6' 0.99) 04/21/2022 11:18 AM EDT Body Mass Index 37.21 04/21/2022 11:18 AM EDT documented in this encounter Progress Notes Nicky Baez MD - 04/21/2022 11:30 AM EDT Subjective: Patient ID: Leroy Torres is a 66 y.o. male here for follow-up of chronic anemia due to renal insufficiency. Followed by Dr Garnett at [facility]. Seen for epo supplementation. Patient Active Problem List Diagnosis ??? Otitis externa ??? Mixed conductive and sensorineural hearing loss of left ear with restricted hearing of right ear MYRINGOTOMY TUBES/TUBE REMOVAL Patient's Name: Leroy Torres Surgery Date: 12/29/2021 Interval Follow Up: Year 1 Post-Op 4-6 Weeks 01/28/22 MATTHIEU - MD x MATTHIEU-AP AUD 45 PRIOR to appt X ??? Other complication of kidney transplant ??? Immunocompromised state due to drug therapy ??? Essential hypertension ??? Renal osteodystrophy ??? Other postherpetic nervous system involvement ??? Renal tubular acidosis ??? Hypervolemia ??? PAF (paroxysmal atrial fibrillation) ??? Phantom limb pain ??? Chronic atrial fibrillation ??? CKD (chronic kidney disease) stage 4, GFR 15-29 ml/min 10/22/21 BONE MARROW (PERIPHERAL SMEAR, ASPIRATE SMEAR, TOUCH PREP, CORE BIOPSY): ?1. ??Normocellular marrow (50%) showing complete multilineage ?? hematopoiesis, ??with ? mild erythroid hypoplasia and a mild increase in polytypic plasma cell (see ? discussion) ?2. ??Iron stores are present per iron stain ?3. ??Peripheral smear with borderline macrocytic anemia ?4. ??Pending genetic studies CG and NGS myeloid panel w/o sig findings ??? Prophylactic immunotherapy ??? Persistent proteinuria ??? senior living current use of immunosuppressive drug ??? Aftercare following organ transplant ??? Hyperlipidemia ??? Reflux esophagitis ??? COPD (chronic obstructive pulmonary disease) ??? Hydrocele ??? Lower urinary tract symptoms ?Appendicitis, sp appendectomy 06/16/13 ??? Intermittent fever of unknown origin ??? Tremor/tics ??? Hyperglycemia ??? Immunosuppression ??? H/O kidney transplant ??? History of renal transplant ??? Amputee, below knee Right BKA ??? Delayed wound healing ??? Sensorineural hearing loss, bilateral ??? Tremor, essential ??? Injury, other and unspecified, unspecified site Display name was automatically updated by a utility run on 10/27/2011 ??? Diabetes mellitus with neuropathy ??? Charcot's arthropathy, diabetic, R ??? Amputee, below knee, L ??? 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ifestations JESSICA Alexis returns to clinic today in routine follow-up. He was last seen in clinic ~ 9 months ago. He continues to receive Aranesp q2 weeks without identifiable side effects. He underwent a trial of Venofer 200mg IV qoweek x 3 in October-November 2021 due to inadequate response to [facility] support. Reuben did not notice a difference in symptoms or show a significant improvement in response to supplemental iron. In fact, he notes that Venofer triggered phantom limb pain which kept him awake all night. Venofer also interfered with blood sugar control. He had severe ear infection requriing IV ATB earlier this year and continues to be followed by ENT. He reports that he now has a tube in his ear. All resolved. Complains of pain in chest w/ CPAP - pulmonary is aware. Ongoing fatique. Review of Systems Constitutional: Fatigued! HENT: As Noted above, still having sore throat, ear pain and slight drainage Eyes: Negative. Respiratory: Negative for cough and shortness of breath. Cardiovascular: Negative for chest pain, palpitations and leg swelling. Gastrointestinal: Negative for constipation, diarrhea, nausea and vomiting. Genitourinary: Negative. Musculoskeletal: global weakness Skin: Negative. Neurological: Negative. Negative for weakness and numbness. Psychiatric/Behavioral: Negative. PHYSICAL EXAM BP 159/49 (Patient Position: Sitting) Pulse 73 Temp 36.8 ??C (98.2 ??F) (Temporal) Resp 16 Ht 185.4 cm (6' 0.99) Wt 127.9 kg (282 lb) SpO2 99% BMI 37.21 kg/m?? Body surface area is 2.57 meters squared. GENERAL: Leroy Torres is a chronically-ill appearing 66 year old male in [facility]. He is accompanied to clinic by his . ENT: Oral pharynx clear. EYES: [place] NECK: Supple without adenopathy. AXILLARY: no adenopathy OTHER LYMPH: no adenopathy CARDIAC: Regular rate and rhythm without S3,S4 or murmurs. LUNGS: Clear to auscultation./percussion ABDOMEN: Soft and non-tender without hepatosplenomegaly or masses. EXTREMITIES: No cyanosis, clubbing, edema or calf tenderness. SKIN: No bruises or petechiae. NEUROLOGICAL: Alert and oriented to person, place and time. MUSCULOSKELETAL: No spinal or chest wall tenderness. LABS: Recent Results (from the past 72 hour(s)) UPPER GI ENDOSCOPY Result Value Ref Range UPPER GI ENDOSCOPY [facility] Endoscopy Procedure Date: 04/19/2022 8:39 AM Patient Name: Leroy Torres Date of : 1955 Age: 66 Order #: [id number] Instrument Name: [id number] Procedure: Upper GI endoscopy Indications: Esophageal dysphagia Providers: Kimo Singh, Julia Will, Alejo Fleming RN, Katiana Capellan Referring MD: Violetta Sanford MD Medicines: Monitored Anesthesia Care Complications: No immediate complications. Procedure: Pre-Anesthesia Assessment: - Prior to the procedure, a History and Physical was performed, and patient medications, allergies and sensitivities were reviewed. The patient's tolerance of previous anesthesia was reviewed. - The risks and benefits of the procedure and the sedation options and risks were discussed with the patient. All questions were answered and informed consent was obtained. - Patient identification and proposed procedure were verified prior to the procedure by the physician. The procedure was verified in the [facility] area. - Pre-procedure physical examination revealed no contraindications to sedation. - ASA Grade Assessment: III - A patient with severe systemic disease. - After reviewing the risks and benefits, the patient was deemed in satisfactory condition to undergo the procedure. - Monitored anesthesia care under the supervision of an anesthesiologist was determined to be medically necessary for this procedure based on age 65 or older and severe comorbidity (greater than ASA Grade II). The procedure, indications, benefits, ris ks and alternatives were explained to the patient. Specifically discussed were potential complications including, but not limited to, bleeding, perforation, infection, missing a cancer, and adverse medication reactions. The Endoscope was introduced through the mouth, and advanced to the second part of duodenum The upper GI endoscopy was accomplished without difficulty. The patient tolerated the procedure well. Findings: Diffuse, white plaques were found in the entire esophagus. Biopsies were taken with a cold forceps for histology. A few dispersed small erosions with no bleeding and no stigmata of recent bleeding were found in the gastric antrum. Biopsies were taken with a cold forceps for histology. Random biopsies also taken from the gastric body to rule out H. pylori. The exam of the stomach was otherwise normal. Patchy mucosal changes characterized by Pseudomelanosis duodeni were found in the duodenal bulb. Moderate Sedation: Not applicable - See Anesthesia documentation Impression: - Esophageal plaques were found, suspicious for candidiasis. Biopsied. - Erosive gastropathy with no bleeding and no stigmata of recent bleeding. Biopsied. - Pseudomelanosis duodeni, which is a benign finding. Otherwise normal visualized duodenum. Re commendation: - Await pathology results. If brett esophagitis is found, will prescribe a course of fluconazole. - Discharge patient to home. - Resume previous diet. - Continue present medications. Procedure Code(s): --- Professional --- 38870, Esophagogastroduodenoscopy, flexible, transoral; with biopsy, single or multiple Diagnosis Code(s): --- Professional --- K22.9, Disease of esophagus, unspecified K31.89, Other diseases of stomach and duodenum R13.14, Dysphagia, pharyngoesophageal phase --- Technical --- K22.9, Diseas e of esophagus, unspecified K31.89, Other diseases of stomach and duodenum R13.14, Dysphagia, pharyngoesophageal phase CPT copyright 2020 [employer]. All rights reserved. The codes documented in this report are preliminary and upon director of veterans affairs review may be revised to meet current compliance requirements. Attending Participation: I was present and participated during the entire procedure, including non-martínez portions. Kimo Singh M.D. Kimo Singh, 04/19/2022 9:22:51 AM This report has been signed electronically. Number of Addenda: 0 Note Initiated On: 04/19/2022 8:39 AM CBC (with Diff) Result Value Ref Range WBC 6.09 Hemoglobin 9.8 Hematocrit 31.9 Platelets 150 Neutr Abs (ANC) 3.52 Comprehensive metabolic panel (non-fasting) Result Value Ref Range Creatinine 3.9 Potassium 4.7 Total Bilirubin 0.3 Alk Phos 155 AST 11 ALT 15 Iron 44 TIBC 158 Iron Saturation 28 Ferritin 90 PATHOLOGY 10/22/21 BONE MARROW (PERIPHERAL SMEAR, ASPIRATE SMEAR, TOUCH PREP, CORE BIOPSY): ?1. ??Normocellular marrow (50%) showing complete multilineage ?? hematopoiesis, ??with ? mild erythroid hypoplasia and a mild increase in polytypic plasma cell (see ? discussion) ?2. ??Iron stores are present per iron stain ?3. ??Peripheral smear with borderline macrocytic anemia ?4. ??Pending genetic studies DISCUSSION No morphologic evidence of significant dyspoiesis or other primary disorder of ??hematopoiesis is observed. CG : extra copy Y NGS myeloid sequencing panel: no significant variants detected Assessment and Plan: Leroy Torres is a very pleasant 66 y.o. male referred by Dr Garnett for consideration of erythropoietin supplementation for anemia due to end-stage renal disease, status post transplant. ?? His hemoglobin had been in the 8-9 range on Aranesp 300 mg Q2 weeks. ? Reuben had a bone marrow biopsy on 10/22/2021 which showed no evidence of dysplasia or other etiology of his anemia. His complete anemia work-up as listed above. The only significant finding is probable combination of anemia of chronic disease and possibly also some component of iron deficiency. The iron studies are not clearly iron deficiency nor are they clearly anemia of chronic disease. His bone marrow biopsy also confirms stored iron, further arguing that he is not truly iron deficient. However, given that he has not responded to Aranesp alone, a trial of Venofer was undertaken though has failedto result in a higher Hgb and was associated with intolerable phantom limb pain. Epo has resulted in about a 1 gm increase in his hgb over baseline. His iron studies are pending today. COVID - Vaccinated X 4 and plans for Evusheld. Alexis discussed with Dr Garnett who did not feel itwas necessary given her had detectable COVID antibodies. He will get new bivalent COVID vaccine. Plan: ?? Continue Aranesp 300mcg every 2 weeks ?? Return to clinic in 6 months with CBC, CMP, iron, tibc, ferritin ?? He will call sooner if any concerns or changes in status. ?? documented in this encounter Plan of Treatment Upcoming Encounters Date Type Specialty Care Team Description 05/26/2022 Office Visit Otolaryngology Ricardo Panda PA [facility] [address] [place] [phone] (Wo gregg) 06/02/2022 Infusion Hematology and Oncology 06/16/2022 Infusion Hematology and Oncology 06/21/2022 Office Visit Neurology Tyler Rojas MD [facility] Dr [address] [place] [phone] 6-2022 (Wo gregg) 06/30/2022 Infusion Hematology and Oncology 07/14/2022 Infusion Hematology and Oncology 07/28/2022 Infusion Hematology and Oncology 08/11/2022 Infusion Hematology and Oncology 11/04/2022 Office Visit Rheumatology Dante Freedman PA [facility] RHEUMATOLOGY [place], [place] [address] (Wo rk) Scheduled Orders Name Type Priority Associated Diagnoses Order S chedule CBC (with Diff) Lab STAT Anemia of chronic As Need ed for 6 renal failure, stage 4 Occur rences starting (severe) 04/21/2022 until H/O kidney transplant 2022 Comprehensive metabolic Lab STAT Anemia of chronic As Needed for 6 panel (non-fasting) renal failure, stage 4 Occurrences starting (severe) 04/21/2022 until H/O kidney transplant 2022 Ferritin Lab STAT Anemia of chronic As Needed for 6 renal failure, stage 4 Occur rences starting (severe) 04/21/2022 until H/O kidney transplant 2022 Iron and TIBC Lab STAT Anemia of chronic As Needed for 6 renal failure, stage 4 Occur rences starting (severe) 04/21/2022 until H/O kidney transplant 2022 documented as of this encounter Procedures Procedure Name Priority Date/Time Associated Diagnosis Comme nts CBC (WITH DIFF) Routine 04/21/2022 Results for this procedure are i n the results section . COMPREHENSIVE METABOLIC Routine 04/21/2022 Resu lts for this PANEL (NON-FASTING) procedur e are in the results section . documented in this encounter Results Comprehensive metabolic panel (non-fasting) (04/21/2022) athologist Signature Creatinine 3.9 Potassium 4.7 Total Bilirubin 0.3 Alk Phos 155 AST 11 ALT 15 Iron 44 TIBC 158 Iron Saturation 28 Ferritin 90 Specimen (Source) Anatomical Location Collection Method / Collectio n Time Received Time / Laterality Volume Blood 04/21/2022 Historical Provider CHEMISTRY ORDERABLES CBC (with Diff) (04/21/2022) athologist Signature WBC 6.09 Hemoglobin 9.8 Hematocrit 31.9 Platelets 150 Neutr Abs (ANC) 3.52 Specimen (Source) Anatomical Location Collection Method / Collectio n Time Received Time / Laterality Volume Blood 04/21/2022 Historical Provider HEMATOLOGY ORDERABLES documented in this encounter Visit Diagnoses Diagnosis Anemia of chronic renal failure, stage 4 (severe) H/O kidney transplant Kidney replaced by transplant documented in this encounter Care Teams Box Packer Relationship Specialty Start Date End Date Violetta Sanford MD PCP - General 04/02/14 [address] [place] [address] documented as of this encounter
--- OUTSIDE RECORDS SUMMARY | 2022-05-24 10:45 | XMS_ITS | Encounter Summary ---
:1955 Author Organization [facility] [place] [address] Care Team Providers Name Role Phone Violetta Sanford MD Primary Care Provider Encounter Details Date Type Department Care Team Description 04/19/2022 Hospital Encounter Gastroenterology at [facility] Singh, [place] [phone] [place] [address] GASTROENTEROLOGY [place] [address] Social History Tobacco Use Types Packs/Day Years [...] Sign Reading Time Taken Comments Blood Pressure 139/65 04/19/2022 9:40 AM EDT Pulse 68 04/19/2022 8:11 AM EDT Temperature 37.1 ??C (98.7 ??F) 04/19/2022 8:11 AM EDT Respiratory Rate 15 04/19/2022 9:40 AM EDT Oxygen Saturation 97% 04/19/2022 9:40 AM EDT Inhaled Oxygen - - Concentration [...] the day after the procedure, use an rlhe-tix-dvoddou spray to numb your throat. Sucking on [...] occurs, please contact your Doctor. Please call [phone] before 8pm Mon-Fri with problems, questions or concerns. If you call after 8pm or on weekends, call the Hospital at [phone] and ask to speak to the Metal Machinist patient account liaison and the lithographing machine operator will contact that person for you. When should you call for help? Call [phone] anytime you think you may need emergency [...] any problems. Where can you learn more? [facility] View your After Visit Summary and more online at [email or web address] If you would like to provide feedback about your hospital experience, please call the Office of Patient and Family Relations at . If you have received this After Visit Summary in error, please immediately return it in person to the department, or notify the [facility] Privacy Office by calling toll free at between the hours of 8AM and 5PM to arrange for our retrieval of the documents at no cost to you. Content Version: 12.2 ?? [id number] [employer]. Care instructions adapted under license by [facility]. If you have questions about a medical condition or this instruction, always ask your healthcare professional. [employer] disclaims any warranty or liability for your [...] by 6 kit 3 08/07/2021 Sensor Kit Misc.(Non-Drug; Combo Route) route every 14 days. Use to continuously monitor blood glucose. Scan at least 4 times per day. FreeStyle Gilberto 2 Use to continuously 1 each 0 2 [place] Misc monitor blood glucose. Scan at least [...] 6 kit 3 01/13/2021 Day Sensor Kit [facility].(Non-Drug; Combo Route) route every 14 days. Use to continuously monitor blood glucose. Scan at least 5 times per day. DX: E11.65 darbepoetin cristy in Inject 300 mg as 0 polysorbat 10 mcg/0.4 directed as needed. mL Syringe cyanocobalamin, Take 100 mcg by mouth 0 Vitamin B-12, daily. (Vitamin B-12) 100 mcg Tablet Blood-Glucose Sensor by [facility].(Non-Drug; 0 (Dexcom G6 Sensor) Combo Route) route. Device Sensor, integration architect andtransmitter metoprolol succinate Take 1 tablet by mouth 90 tablet 1 04/2020 XL (Toprol-XL) 50 mg daily. Tablet Sustained Release 24 hr amLODIPine (Norvasc) Take 0.5 tablets by 90 tablet 3 2019 10 mg Tablet mouth daily. fluticasone INSTILL 2 SPRAYS INTO 0 09/06/2019 propionate (FLONASE) EACH NOSTRIL ONCE A 50 mcg/actuation DAY NEEDED [place], Suspension multivitamin with Take 1 tablet by [...] 1 Device by 100 each 3 03/09/2017 disposable, 29 gauge [facility].(Non-Drug; Combo x 1/2 Route) route 3 times [...] Devices by 4 each 0 12/02/2015 Supply [facility].(Non-Drug; Combo MiscIndications: S/P Route) route daily. bilateral [...] COPD (chronic obstructive pulmonary disease) J44.9 ??? long-term current use of immunosuppressive drug Z79.899 ??? [...] Otolaryngology Ricardo Panda PA [facility] [address] [place] [address] (Wo rk) 06/02/2022 Infusion Hematology and Oncology 06/16/2022 Infusion Hematology and Oncology 06/21/2022 Office Visit Neurology Tyler Rojas MD [facility] Neurology [place], [place] [phone] (Wo rk) 06/30/2022 Infusion Hematology and Oncology 07/14/2022 Infusion Hematology and Oncology 07/28/2022 Infusion Hematology and Oncology 08/11/2022 Infusion Hematology and Oncology 11/04/2022 Office Visit Rheumatology Dante Freedman PA [facility] RHEUMATOLOGY [place], [place] [address] (Wo rk) documented as of [...] 9:14 AM 9:14 EDT AM EDT Narrative [facility] - 04/19/2022 9:14 AM EDT Specimen requisition ordered. ??Separate Pathology report to follow Kimo Singh MD PATHOLOGY/CYTOLOGY ORDERABLE S Performing Organization Address City/[facility]/[place]IP [place] [address] Specimen to Pathology (04/19/2022 9:14 AM EDT) Specimen Anatomical Collection Method Collection Time Receive d Time (Source) Location / / Volume Laterality AP Specimen 04/19/2022 9:14 AM 9:14 EDT AM EDT Narrative [facility] - 04/19/2022 9:14 AM EDT Specimen requisition ordered. ??Separate Pathology report to follow Kimo Singh MD PATHOLOGY/CYTOLOGY ORDERABLE S Performing Organization Address City/[facility] [place] [address] Specimen to Pathology (04/19/2022 9:14 AM EDT) Specimen Anatomical Collection Method Collection Time Receive d Time (Source) Location / / Volume Laterality AP Specimen 04/19/2022 9:14 AM 2 9:14 EDT AM EDT Narrative [facility] - 04/19/2022 9:14 AM EDT Specimen requisition ordered. ??Separate Pathology report to follow Kimo Singh MD PATHOLOGY/CYTOLOGY ORDERABLE S Performing Organization Address City/[facility]/[place] [address] Specimen to Pathology (04/19/2022 9:14 AM EDT) Specimen Anatomical Collection Method Collection Time Receive d Time (Source) Location / / Volume Laterality AP Specimen 04/19/2022 9:14 AM 2 9:14 EDT AM EDT Narrative [facility] - 04/19/2022 9:14 AM EDT Specimen requisition ordered. ??Separate Pathology report to follow Kimo Singh MD PATHOLOGY/CYTOLOGY ORDERABLE S Performing Organization Address City/[facility] [place] [address] Surgical Pathology Report (04/19/2022 8:57 AM EDT) Component Value Ref Test Analysis Performed At [facility] Method Time Signature Surgical [id number] ? Location: 4T; EA06; A [facility] Report The signing pathologist has (i) examined the relevant preparation(s) for the [facility] specimen(s) and (ii) rendered or confirmed the [...] Jaclyn Verified: ??04/26/2022 13:43 ??Pathologist Performed at: ??-[facility] Dept. of Pathology, [place], [place] DISCUSSION A, C - ??Yeast and [...] Organization Address City/State/[place]IP [place] [address] UPPER GI ENDOSCOPY (04/19/2022 8:39 AM EDT) Component Value Ref Test Analysis Performed Pathologis t Range Method Time At [facility] UPPER GI [facility] ENDOSCOPY Endoscopy Procedure Date: 04/19/2022 8:39 AM ? Patient Name: Leroy Torres ? Date of : 1955 ? Age: 66 ? Order #: [id number] ? Instrument Name: [id number] ? Procedure: ? Upper GI endoscopy Indications: [...] Procedure Code(s): ? --- Professional --- ? 00721, Esophagogastroduode noscopy, ? flexible, transoral; with biopsy, [...] Dysphagia, ? pharyngoesophageal phase CPT copyright 2020 [employer]. All rights reserved. The codes documented in this report are preliminary and upon supervisor powdered sugar review may be revised to meet current [...] [employer] documented in this encounter Visit Diagnoses Not [...] Procedure) documented in this encounter Care Teams Director Writing Relationship Specialty Start Date End Date Violetta Sanford MD PCP - General 04/02/14 [address] [place] [address] documented as of this encounter
--- OUTSIDE RECORDS SUMMARY | 2022-05-24 10:45 | XMS_ITS | Encounter Summary ---
:1955 Author Organization [facility] Address [address] [place] [address] Care Team Providers Name Role Phone Violetta Sanford MD Primary Care Provider Reason for Visit Reason Comments Follow-up Everything is going goodLeft ear is hard of hearing Encounter Details Date Type Department Care Team Description 04/28/2022 Office Visit Otolaryngology at [facility] Tyler, Iraj R, Left chronic serous otitis m edia; [facility] ETGiovana (Eustachian tube dysfunction), left; [facility] Mixed conductive and sensori neural hearing loss of left ear with restricted hearing of right ear; [place] [address] CENTER H/O kidney transplant; [phone] OTOLARYNGOLOGY [facility] current use [place] [address] Social History Tobacco Use Types Packs/Day Years [...] Sign Reading Time Taken Comments Blood Pressure - - Pulse - - Temperature - - Respiratory Rate - - Oxygen Saturation - - Inhaled Oxygen Concentration - - Weight 127.9 kg (282 lb) 04/28/2022 1:30 PM EDT Height 193 cm (6' 4) 04/28/2022 1:30 PM EDT Body Mass Index 34.33 04/28/2022 1:30 PM EDT documented in this encounter Progress Notes Iraj Scott MD - 04/28/2022 1:40 PM EDT [facility] Otolaryngology - Head and Neck Surgery Iraj Scott MD 04/28/22 12:35 PM [place], [place] [address] Office Patient Name: Leroy Torres Date of : 1955 PCP: Violetta Sanford MD Chief Complaint: hearing loss Interval History: 04/28/2022: F/u left ear. Patient presents today with his . Was treated last visit with 2-week course of topical antibiotics and steroids with tragal pumping. He reports that this was effective in resolving his otorrhea. He has not experienced any interval drainage. Hearing remains subjectively improved. Denies otalgia. Denies dizziness or vertigo. No new otolo gic concerns. 03/17/2022: Approximately 1 month follow-up status post myringotomy with tube left ear. This was performed with Dr. Avila consequent to my absence. Reports hearing subjectively much improved following surgery. Has also noted that he his left facial pain issues resolved following tube placement. However, he does report that he has continued to experience some continued drainage from the left ear, typically only at night. No foul odor. Did gtts post-op for about 10 days immediately after surgery. No recent gtts.Denies any significant otalgia. No dizziness or vertigo. Denies headaches or visual symptoms or other focal neurologic concerns. Previous considerations following initial myringotomy to potential CSF. Sizeable aspirate obtained and sent which was negative for beta-2 transferrin. Repeat audiogram 03/17/2022 reviewed. Slight sloping to severe high-frequency mixed hearing loss leftear, with borderline normal sloping to severe high- frequency sensorineural hearing loss right ear. Bone-conduction thresholds essentially symmetric. 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 Discrimination 76% at 70 dB for the right and 64% at 70 dB for the left. Normal tympanogram right ear. Large volume flat tympanogram left ear. Thresholds on left significantly improved as compared to previous, stable right. 01/14/2022: COM with effusion left ear. Underwent recent myringotomy. Had copious clear pulsating middle ear effusion. CSF considered. Aspirate obtained for beta-2 transferrin which was ultimately negative. However, consequent to intraoperative concerns, plan for tympanostomy tube was deferred. Initiated on antibiotic gtts. Clinical course complicated by recent ear infection left ear manifesting as significant otalgia with some otorrhea. Was admitted overnight for further evaluation and antibiotic therapy. Now on day 7 of planned 10 day course of cefpodoxime. Actually reports that he only received a 7 day course, even though the Rx was for 10 days. Requested secondary Rx today to fill the remaining 3 days. Has also continued with Ciprodex gtts bid. Notes sxs now significantly improved. Denies residual otalgia or otorrhea. Hearing remains muffled, but overall stable. No dizziness or vertigo. Patient also reporting recent dysphagia at the level of the lower esophagus. Apparently had esophagram yesterday through OSH, and slated to receive results today or tomorrow. Denies significant sinonasal symptoms, sore throat, odynophagia, dysphonia, hemoptysis, hematemesis, recent wgt loss or neck mass. History of Present Illness: Leroy Torres is a 66 y.o. year old male who was seen today at the request of No ref. provider found in consultation for hearing loss. Patient presents today with his spouse. Patient reports a history of slowly progressive subjective hearing decline bilaterally over many years. Reports a significant history of occupational hazardous noise exposure over the course of severaldecades without hearing protection. He acknowledges constant nonpulsatile subjective tinnitus bilater ally which has not been particularly bothersome or limiting by report. Denies any pulsatile tinnitus. Reports that he recently presented for some worsening subjective hearing on the left approximately 1 year ago. He reports that he was seen by Dr. Chiu. These records are not available for our personal review today. By patient report, he was advised to have a narrow external auditory canal on the left. There was a presumptive middle ear effusion, and he had apparently undergone previous CT imaging supporting this assessment. He underwent myringotomy for the left ear, and a very thick inspissated mucoid effusion was encountered. Tympanostomy tube placement was attempted, but this was unable to be performed consequent to some narrowing of his external auditory canal. Nonetheless, he did note that his hearing subjectively improved to baseline temporarily for a couple of days following myringotomy and aspiration of this middle ear effusion. He was reportedly offered canal plasty with associated myringotomy with tympanostomy tube insertion for the left ear. Patient was not interested in any aggressive surgical intervention, and he is here today seeking secondary consultation for possible myringotomy and tube for the left ear. He reports that he was prescribed hearing aids for both ears approximately 10 years ago. He reports that he generally does not wear them consequent to reported feedback issues. This issue is currently being addressed through audiology by report. Patient denies otalgia, otorrhea, history of recurrent ear infections or prior ear surgery. He denies any significant sinonasal symptoms. Denies chronic sore throat, odynophagia, dysphagia, dysphonia, chronic cough, hematemesis, hemoptysis or epistaxis. Denies known neck mass. He does report a past history of FESS with possible nasal septoplasty approximately 20 years ago with reported relief of symptoms. He is a non-smoker, having quit approximately 30 years ago. He does acknowledge past history ofacid reflux symptoms, but reports symptoms recently well controlled. Acknowledges past history of obstructive sleep apnea. Was apparently prescribed CPAP therapy which he does not use due to intolerance. He reports anticipated follow-up with sleep medicine to address this. Denies any significant dizziness or vertigo history. Audiogram 10/26/2021 personally reviewed. Slight sloping to severe high-frequency mixed hearing loss bilaterally, predominantly sensorineural,with some bilateral conductive overlay, worse on the left. Bone-conduction thresholds essentially symmetric. 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 Discrimination 72% at 85 dB bilaterally. Type As tymp right, and type C negative pressure tympanogram on the left (-172 daPa). 10 point Review of Systems was normal except for pertinent positives and negatives included in the History of Present Illness. Past Medical and Surgical History Patient Active Problem List Diagnosis Code ??? [...] COPD (chronic obstructive pulmonary disease) J44.9 ??? [facility] current use of immunosuppressive drug Z79.899 ??? [...] of right earH90.A32 ??? Otitis externa H60.90 Current Outpatient Medications on File Prior to Visit Medication Sig Dispense Refill ??? CellCept 250 mg Capsule Take 2 capsules by mouth twice daily 120 capsule 11 ??? Prograf 0.5 mg Capsule TAKE 1 CAPSULE BY MOUTH NIGHTLY 30 capsule 11 ??? Prograf 1 mg Capsule Take 1 capsule by mouth once daily 30 capsule 11 ??? losartan (Cozaar) 25 mg Tablet Take 1 tablet by mouth every evening for 360 days. 90 tablet 3 ??? calciTRIoL (Rocaltrol) 0.5 mcg Capsule Take 1 capsule by mouth daily. 90 capsule 3 ??? guaiFENesin ER (Mucinex) 600 mg Tablet Extended Release 12hr Take 1,200 mg by mouth 2 times daily. ??? ipratropium-albuteroL (Duoneb) 0.5 mg-3 mg(2.5 mg base)/3 mL Solution for Nebulization Inhale into the lungs. ??? montelukast (Singulair) 10 mg Tablet Take 10 mg by mouth daily. ??? primidone (Mysoline) 50 mg Tablet Take 1 tablet by mouth 4 times daily. 120 tablet 3 ??? FreeStyle Gilberto 2 Sensor Kit 1 each by [facility].(Non-Drug; Combo Route) route every 14 days. Use to continuously monitor blood glucose. Scan at least 4 times per day. 6 kit 3 ??? FreeStyle Gilberto 2 [place] [facility] Use to continuously monitor blood glucose. Scan at least 5 times per day. 1 each 0 ??? umeclidinium-vilanteroL (Anoro Ellipta) 62.5-25 mcg/actuation Disk with Device Inhale into the lungs daily. ??? insulin aspart U-100 (NovoLOG) Cartridge Inject 10-25 Units subcutaneously 2 times daily. Sliding scale ??? hydrALAZINE (Apresoline) 100 mg Tablet Take 1 tablet by mouth 3 times daily. 270 tablet 2 ??? FreeStyle Gilberto 14 Day Sensor Kit 1 each by [facility].(Non-Drug; Combo Route) route every 14 days. Use to continuously monitor blood glucose. Scan at least 5 times per day. DX: E11.65 6 kit 3 ??? darbepoetin cristy in polysorbat 10 mcg/0.4 mL Syringe Inject 300 mg as directed as needed. ??? cyanocobalamin, Vitamin B-12, (Vitamin B-12) 100 mcg Tablet Take 100 mcg by mouth daily. ??? Blood-Glucose Sensor (Dexcom G6 Sensor) Device by [facility].(Non-Drug; Combo Route) route. Sensor, body specialist andtransmitter ??? metoprolol succinate XL (Toprol-XL) 50 mg Tablet Sustained Release 24 hr Take 1 tablet by mouth daily. 90 tablet 1 ??? amLODIPine (Norvasc) 10 mg Tablet Take 0.5 tablets by mouth daily. 90 tablet 3 ??? fluticasone propionate (FLONASE) 50 mcg/actuation [place], Suspension INSTILL 2 SPRAYS INTO EACH NOSTRIL ONCE A DAY NEEDED ??? albuterol (PROVENTIL) 2.5 mg /3 mL (0.083 %) Solution for Nebulization Take 3 mLs by nebulization every 4 hours as needed for Wheezing. (Patient not taking: Reported on 04/21/2022) 90 mL 3 ??? multivitamin with minerals Tablet Take 1 tablet by mouth Daily. ??? LEVEMIR FLEXTOUCH U-100 INSULN Insulin Pen Inject 50-80 Units subcutaneously 2 times daily. ICD 10 Code: E11.40 45 mL 11 ??? liraglutide (VICTOZA 3-FAZAL) 0.6 mg/0.1 mL (18 mg/3 mL) Pen Injector Inject 1.2 mg subcutaneouslydaily. 6 mL 11 ??? insulin needles, disposable, 29 gauge x 1/2 Needle 1 Device by [facility].(Non- Drug; Combo Route) route 3 times daily. 100 each 3 ??? atorvastatin (LIPITOR) 20 mg Tablet Take 1 tablet by mouth daily. 90 tablet 3 ??? folic acid (FOLVITE) 1 mg Tablet Take 2 tablets by mouth daily. 180 tablet 3 ??? omeprazole (PRILOSEC) 40 mg Capsule, Delayed Release(E.C.) Take 1 capsule by mouth daily. 90 capsule 3 ??? acetaminophen (TYLENOL) 325 mg Tablet Take 650 mg by mouth every 4 hours as needed for Pain. Reported on 08/06/2016 ??? Miscellaneous Medical Supply [facility] 4 Devices by [facility].(Non-Drug; Combo Route) route daily. Rubber sheath for leg prosthesis (2 pairs) 4 each PRN ??? BD INSULIN PEN NEEDLE UF ORIG 29 gauge x 1/2 Needle 0 ??? aspirin 81 mg EC tablet Take 81 mg by mouth daily. No current facility-administered medications on file prior to visit. Allergies: Iftikhar inhibitors, Clindamycin hcl, Doxycycline, Allergenic extracts, Penicillins, Sulfamethoxazole, Sulfamethoxazole-trimethoprim, and Trimethoprim Surgical History: Past Surgical History: Procedure Laterality Date ??? [...] Biopsy Bone Marrow 10/22/2021 Richar Lo MD [facility] RAD CT SCAN ??? PRO AMPUTATION LOW LEG THRU TIB/FIB 06/21/2011 ??AMPUTATION, BELOW-KNEE performed by HENNA GAMINO JR at [facility] OR ??? PRO CREATE EARDRUM OPENING, GEN ANESTH Left 02/09/2022 MYRINGOTOMY, INSERTION OF TUBE (WRVU 2.01) performed by Archie Avila MD at [facility] OR ??? PRO INCISION EARDRUM,ASPIR Left 12/29/2021 MYRINGOTOMY ASPIRATION OF MIDDLE EAR (WRVU 1.38) performed by Iraj Scott MD at [facility] OR ??? PRO LAP, APPENDECTOMY 06/16/2013 LAPAROSCOPIC APPENDECTOMY performed by Angel Mccann MD at [facility] OR ??? PRO MICROSURG TECHNIQUES, REQ OPER MICROSCOPE Left 12/29/2021 MICROSCOPE USE (WRVU 3.46) performed by Iraj Scott MD at [facility] OR ??? PRO MICROSURG TECHNIQUES, REQ OPER MICROSCOPE Left 02/09/2022 MICROSCOPE USE (WRVU 3.46) performed by Archie Avila MD at [facility] OR ??? PRO UPPER GI ENDOSCOPY, BIOPSY N/A 04/19/2022 EGD WITH BIOPSY (WRVU 2.49) performed by Kimo Singh MD at [facility] ENDOSCOPY ??? US RENAL TRANSPLANT LEFT Left 06/26/2019 US Renal Transplant Left 06/26/2019 [facility] RAD ULTRASOUND Family and Social History Family History: No family history on file. Social History: [place] [facility] [place] [address] Social History Socioeconomic History ??? Marital status: Spouse name: Not on file ??? Number of children: Not on file ??? Years of education: Not on file ??? Highest education level: Not on file Occupational History ??? Not on file Tobacco Use ??? Smoking status: Former Smoker Packs/day: 2.00 Years: 20.00 Pack years: 40.00 Types: Cigarettes Quit date: 01/19/1993 Years since quittin.2 ??? Smokeless tobacco: Never Used Vaping Use ??? Vaping Use: Never used Substance and Sexual Activity ??? Alcohol use: Yes Comment: 1 beer monthly ??? Drug use: No ??? Sexual activity: Not on file Comment: deferred Other Topics Concern ??? Not on file Social History Narrative ??? Not on file Social Determinants of Health Financial Resource Strain: Not on file Food Insecurity: Not on file Transportation Needs: Not on file Physical Activity: Not on file Housing Stability: Not on file Physical Exam Temperature: Heart Rate: Blood Pressure: Respiratory Rate: SpO2: General: Alert and oriented. No acute distress. Head and Face: Head is normocephalic, atraumatic. Facial resting tone symmetric. Eyes: Conjugate gaze, ocular motility intact bilaterally. No spontaneous or gaze evoked nystagmus. Neurologic: Cranial Nerves II-XII grossly intact and symmetric. Ears: External ears without deformity. See documentation of otomicroscopy below. Psych: Normal mood and affect. Labs and Imaging Significant lab values are as follows: 12/29/21 08:10 Beta-2 Trans BF Negative [1] I reviewed the following imaging studies: n/a Procedures Ears examined and cleaned with aid of binocular microscopy. Right Ear: Auricle normal. External auditory canal clear, with modest narrowing, not as significant as left. Drum is intact with normal mobility via pneumatic otoscopy. Middle ear is well aerated. Negative fistula test. Stable exam. Left Ear: Auricle normal. External auditory canal clear. Anterior canal wall bulge with canal narrowing. Canal otherwise clear. Drum is intact aside from myringotomy tube inferiorly, patent and dry. Improved exam. ASSESSMENT & RECOMMENDATIONS Leroy Torres is a 66 y.o. male who presented with slowly progressive subjective hearing decline bilaterally over the course of the years, with non- limiting nonpulsatile subjective tinnitus bilaterally. He has a past history of significant occupational hazardous noise exposure over the course of many decades. Reported an approximate 1 year history of worsened hearing on the left. Underwent prior myringotomy on the left through outside ENT with aspiration of mucoid middle ear effusion approximately one year ago. Attempted tympanostomy tube insertion was not successful, attributed to narrowed bonyexternal auditory canal. We did subsequent office myringotomy with thick mucoid effusion. Then underwent sedated myringotomy with plan for tympanostomy tube. Effusion clear and pulsating with strong suggestion of CSF. Tympanostomy tube deferred in that setting. Beta 2 transferrin ultimately negative. No obvious tegmen defect by CT. Post-procedural course complicated by ear otalgia with otorrhea and presumed AOM which resolved following antibiotics. Had residual middle ear effusion left ear. Subsequently underwent myringotomy and tube left ear. Experienced some residual otorrhea post-op. Now resolved following ototopical treatment with 2-week course of topical antibiotics and steroids withtragal pumping. Hearing left ear significantly improved and now at baseline. Discussed continued dry ear precautions. Patient medically cleared for continued hearing aid use. He reports that he needs his hearing aids adjusted. He was [place] [facility] Desires follow-up HAC and we advised that we willfacilitate this. Plan otology follow-up in approximately 6 months, sooner as needed. Early return precautions were reviewed. Patient and spouse in agreement with plan. Total time spent counseling and coordinating patient care 30 minutes. Iraj Scott MD Otology / Neurotology Otolaryngology - Head & Neck Surgery 04/28/22 12:35 PM documented in this encounter Plan of Treatment Upcoming Encounters Date Type Specialty Care Team Description 05/26/2022 Office Visit Otolaryngology Ricardo Panda PA [facility] [address] [place] [address] (Wo rk) 06/02/2022 Infusion Hematology and Oncology 06/16/2022 Infusion Hematology and Oncology 06/21/2022 Office Visit Neurology Tyler Rojas MD [facility] Neurology [place], [place] [phone] (Wo rk) 06/30/2022 Infusion Hematology and Oncology 07/14/2022 Infusion Hematology and Oncology 07/28/2022 Infusion Hematology and Oncology 08/11/2022 Infusion Hematology and Oncology 11/04/2022 Office Visit Rheumatology Dante Freedman PA [facility] RHEUMATOLOGY [place], [place] [address] (Wo rk) documented as of this encounter Visit Diagnoses Diagnosis Left chronic serous otitis media Simple or unspecified chronic serous beth tis media ETD (Eustachian tube dysfunction), left Mixed conductive and sensorineural heari ng loss of left ear with restricted hearing of right ear H/O kidney transplant Kidney replaced by transplant [facility] current use of immunosuppressi ve drug documented in this encounter Care Teams 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
--- OUTSIDE RECORDS SUMMARY | 2022-05-24 10:45 | XMS_ITS | Encounter Summary ---
:1955 Author Organization [facility] [place] [address] Care Team Providers Name Role Phone Violetta Sanford MD Primary Care Provider Encounter Details Date Type Department Care Team Description 04/21/2022 Telephone Solid Organ [place]plant [place] [address] Social History Tobacco Use Types Packs/Day Years [...] this encounter Miscellaneous Notes Telephone Encounter - Aria Khan RN - 04/21/2022 11:17 AM EDT CRITICAL/STAT RESULT NOTIFICATION TELEPHONE NOTE Date of call: 04/21/2022 Time of call: 11:18 AM Two patient identifiers: [x] Caller: External Reason for call: Critical results, calling for Lab results Test and results: creatinine 3.9 Read back: [x] Name of Provider Notified: Alejo Garnett MD Provider acknowledgement: [x] Time of Notification: 11:18 am Mode of Notification: In person Plan of care: Nurse notified patient and advised: creatinine stable no changes indicated at this time documented in this encounter Plan of Treatment Upcoming Encounters Date Type Specialty Care Team Description 05/26/2022 Office Visit Otolaryngology Ricardo Panda PA [facility] [address] [place], [place] [address] (Wo rk) 06/02/2022 Infusion Hematology and Oncology 06/16/2022 Infusion Hematology and Oncology 06/21/2022 Office Visit Neurology Tyler Rojas MD 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
--- OUTSIDE RECORDS SUMMARY | 2022-05-24 10:46 | XMS_ITS | Encounter Summary ---
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) stage 4, GFR 15-29 ml/min; Transplant [facility] MD Thang Anemia of chronic renal failure, stage 4 (severe); [facility] Moustapha al osteodystrophy; Drive Afterjd following organ transplant; [place], [place] TRANSPLANT SURGE RY Prophylactic immunotherapy; [id number] [place] [address] Other complication of kidney transplant [phone] Social History Tobacco Use Types Packs/Day Years [...] Sign Reading Time Taken Comments Blood Pressure 140/70 03/17/2022 11:56 AM EDT Pulse 68 03/17/2022 11:56 AM EDT Temperature 36.9 ??C (98.4 ??F) 03/17/2022 11:56 AM EDT Respiratory Rate - - Oxygen Saturation 98% 03/17/2022 11:56 AM EDT Inhaled Oxygen Concentration - - Weight 130.4 kg (287 lb 6.4 oz) 03/17/2022 11:56 AM EDT Height - - Body Mass Index 37.92 03/17/2022 10:48 AM EDT documented in this encounter Progress Notes Alejo Garnett MD - 03/17/2022 12:00 PM EDT TRANSPLANT NEPHROLOGY FOLLOW-UP NOTE PATIENT: Leroy Torres : 1955 Transplant ID: Date:?? 03/17/2022; last visit 5 months ago Patient: Leroy Torres Transplant Date: 02/29/2008 Organ(s) Kidney [place] organ diagnosis: Diabetes Mellitus - Type II From Transplant:?? 14??years ?? ID: This is a 66??yo white male with a history of ESRD secondary to diabetic nephropathy s/p DD renal transplant on 02/29/08 who returns to clinic for ongoing care of his failing transplanted kidney and ckd stage 4 (GFR mid 20s).? Interim Hx: Fair but inadequate response to Aranesp followed by Dr. Baez who is undertook an anemia W/U including BMBx (see eDH) and concluded he had CKD associated anemia. He now is on scheduled Epo injections. He also had two myringotomies, the last one placing a pneumatic equalizing tube as well. He had one bout of otitis externa for which he was admitted. He has had four Sars-CoV-2 vaccines the last one in August 2021. Antibodies to the spike protein were detected on 10/05/2021. I suggested to him that he should obtain the multi- valent Pfizer or Moderna vaccine when available and a flu shot the firstweek of April. He is otherwise UTD in his HCM needs. ?? Reuben developed V. zoster of his mid thoracic chest and back??more than in 2020.He was treated for approximately one week with what he believes was acyclovir but remains in excessive painful radiculopathy. He??still has residual discomfort on occasion. ?? He was admitted to [facility] in October 2018??for fluid overload and??A fibViolet denies anasarca, progressive ascites, edema beyond usual from his amputations and obesity. He??is followed both by Dr. Hernandez for diabetes, Dr. Baez for chronic anemia and Dr. Rojas for his neuropathy, autonomic instability. He is now followed at for CKD and a failing kidney transplant. ?? Active Ambulatory Problems Diagnosis Date Noted ??? Amputee, below knee, L 08/02/2006 ??? 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ifestations 08/02/2006 ??? Diabetes mellitus with neuropathy 02/16/2011 ??? Charcot's arthropathy, diabetic, R 02/16/2011 ??? Injury, other and unspecified, unspecified site 02/22/2011 ??? Tremor, essential 03/31/2011 ??? Sensorineural hearing loss, bilateral 08/11/2011 ??? Delayed wound healing 09/30/2011 ??? Amputee, below knee 03/17/2012 ??? History of renal transplant 08/29/2012 ??? Immunosuppression 06/18/2013 ??? H/O kidney transplant 06/18/2013 ?Appendicitis, sp appendectomy 06/16/13 06/19/2013 ??? Intermittent fever of unknown origin 06/19/2013 ??? Tremor/tics 06/19/2013 ??? Hyperglycemia 06/19/2013 ??? Hydrocele 02/13/2014 ??? Lower urinary tract symptoms 02/13/2014 ??? Hyperlipidemia 04/03/2014 ??? Reflux esophagitis 04/03/2014 ??? COPD (chronic obstructive pulmonary disease) 04/03/2014 ??? 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 Aftercare following organ transplant 07/23/2016 ??? Persistent proteinuria 03/08/2017 ??? Prophylactic immunotherapy 03/21/2019 ??? Chronic atrial fibrillation 07/09/2019 ??? Anemia of chronic renal failure, stage 4 (severe) 07/09/2019 ??? Phantom limb pain 09/20/2019 ??? PAF (paroxysmal atrial fibrillation) 11/15/2019 ??? Hypervolemia 04/21/2020 ??? Renal osteodystrophy 09/09/2020 ??? Other postherpetic nervous system involvement 09/09/2020 ??? Renal tubular acidosis 09/09/2020 ??? Essential hypertension 11/25/2020 ??? Other complication of kidney transplant 10/20/2021 ??? Immunocompromised state due to drug therapy 10/20/2021 ??? Mixed conductive and sensorineural hearing loss of left ear with restricted hearing of right ear12/04/2021 ??? Otitis externa 01/06/2022 Resolved Ambulatory Problems Diagnosis Date Noted ??? End stage renal disease 08/02/2006 ??? Wheelchair fitting or adjustment - Power Chair Evaluation 06/28/14 requested by Donell Hernandez MD 06/28/2014 ??? Wheelchair fitting or adjustment - Power Chair Evaluation 06/28/14 requested by Donell Hernandez MD 06/28/2014 No Additional Past Medical History Past Surgical History: Procedure Laterality Date ??? [...] Biopsy Bone Marrow 10/22/2021 Richar Lo MD [facility] RAD CT SCAN ??? PRO AMPUTATION LOW LEG THRU TIB/FIB 06/21/2011 ??AMPUTATION, BELOW-KNEE performed by HENNA GAMINO JR at [facility] MAIN OR ??? PRO CREATE EARDRUM OPENING, GEN ANESTH Left 02/09/2022 MYRINGOTOMY, INSERTION OF TUBE (WRVU 2.01) performed by Archie Avila MD at [facility] MAIN OR ??? PRO INCISION EARDRUM,ASPIR Left 12/29/2021 MYRINGOTOMY ASPIRATION OF MIDDLE EAR (WRVU 1.38) performed by Iraj Scott MD at [facility] MAIN OR ??? PRO LAP, APPENDECTOMY 06/16/2013 LAPAROSCOPIC APPENDECTOMY performed by Angel Mccann MD at [facility] MAIN OR ??? PRO MICROSURG TECHNIQUES, REQ OPER MICROSCOPE Left 12/29/2021 MICROSCOPE USE (WRVU 3.46) performed by Iraj Scott MD at [facility] MAIN OR ??? PRO MICROSURG TECHNIQUES, REQ OPER MICROSCOPE Left 02/09/2022 MICROSCOPE USE (WRVU 3.46) performed by Archie vAila MD at [facility] MAIN OR ??? US RENAL TRANSPLANT LEFT Left 06/26/2019 US Renal Transplant Left 06/26/2019 [facility] RAD ULTRASOUND Healthcare maintenance for a transplant recipient: Immunizations (no live virus or modified bacterial vaccines) Prevnar 13 once in a lifetime Pneumovax 23 every 5 years Tdap every 10 years Annual flu shot ->??due in April NO SHINGLES VACCINES Annual PCP exam - up to date Annual LITZY and PSA for males over 40 - due Annual pap gyne for females (pap if cervix present; visual inspection if no cervix present) Annual mammogram for females over 40, younger than 40 if family hx positive Every 5 year colonoscopy after age 50 - Normal in 2017 in [facility] Monthly self skin exam, daily spf 50 sunblock, annual derm consult if hx of skin cancer - up to date Annual eye exam - January Semi annual dental evaluation with prophylactic antibiotics - Patient has no teeth left (wears dentures). No gum disease. Cardiac stress test after age 50, every 3 years for diabetics, every 5 for non- diabetics - Due last year. Last test done 03/21/2015 which was normal. Due again!! [place] kidney ultrasound looking for renal cell CA, every 5 years post transplant - Due this year. Bone density assessment every 9-12 years post transplant ; has not been performed Annual fasting lipid profile Annual PTH-Vit D3 assessment until normalized Annual spot urine for creatinine, protein, calcium, phosphate, magnesium? Current Outpatient Medications: ??? ciprofloxacin (Ciloxan) 0.3 % Drops, Instill 3 drops in left ear twice daily., Disp: 5 mL, Rfl: 3 ??? prednisoLONE acetate (Pred-Forte) 1 % Drops, Suspension, Instill 3 drops in left ear twice daily., Disp: 5 mL, Rfl: 0 ??? ciprofloxacin (Cipro) 500 mg Tablet, Take 1 tablet by mouth daily for 10 days., Disp: 10 tablet,Rfl: 0 ??? guaiFENesin ER (Mucinex) 600 mg Tablet Extended Release 12hr, Take 1,200 mg by mouth 2 times daily., Disp: , Rfl: ??? ipratropium-albuteroL (Duoneb) 0.5 mg-3 mg(2.5 mg base)/3 mL Solution for Nebulization, Inhale into the lungs., Disp: , Rfl: ??? montelukast (Singulair) 10 mg Tablet, Take 10 mg by mouth daily., Disp: , Rfl: ??? primidone (Mysoline) 50 mg Tablet, Take 1 tablet by mouth 4 times daily., Disp: 120 tablet, Rfl:3 ??? CellCept 250 mg Capsule, TAKE 2 CAPSULES BY MOUTH 2 TIMES DAILY, Disp: 120 capsule, Rfl: 5 ??? Prograf 0.5 mg Capsule, TAKE 1 CAPSULE BY MOUTH NIGHTLY., Disp: 30 capsule, Rfl: 5 ??? Prograf 1 mg Capsule, TAKE 1 CAPSULE BY MOUTH DAILY, Disp: 30 capsule, Rfl: 5 ??? FreeStyle Gilberto 2 Sensor Kit, 1 each by [facility].(Non-Drug; Combo Route) route every 14 days. Use tocontinuously monitor blood glucose. Scan at least 4 times per day., Disp: 6 kit, Rfl: 3 ??? FreeStyle Gilberto 2 Beryl [facility], Use to continuously monitor blood glucose. Scan at least 5 times per day., Disp: 1 each, Rfl: 0 ??? umeclidinium-vilanteroL (Anoro Ellipta) 62.5-25 mcg/actuation Disk with Device, Inhale into the lungs daily., Disp: , Rfl: ??? insulin aspart U-100 (NovoLOG) Cartridge, Inject 10-25 Units subcutaneously 2 times daily. Sliding scale, Disp: , Rfl: ??? hydrALAZINE (Apresoline) 100 mg Tablet, Take 1 tablet by mouth 3 times daily., Disp: 270 tablet,Rfl: 2 ??? FreeStyle Gilberto 14 Day Sensor Kit, 1 each by [facility].(Non-Drug; Combo Route) route every 14 days. Use to continuously monitor blood glucose. Scan at least 5 times per day. DX: E11.65, Disp: 6 kit, Rfl: 3 ??? darbepoetin cristy in polysorbat 10 mcg/0.4 mL Syringe, Inject 300 mg as directed as needed., Disp: , Rfl: ??? cyanocobalamin, Vitamin B-12, (Vitamin B-12) 100 mcg Tablet, Take 100 mcg by mouth daily., Disp:, Rfl: ??? Blood-Glucose Sensor (Dexcom G6 Sensor) Device, by [facility].(Non-Drug; Combo Route) route. Sensor, children's tutor nursery andtransmitter, Disp: , Rfl: ??? metoprolol succinate XL (Toprol-XL) 50 mg Tablet Sustained Release 24 hr, Take 1 tablet by mouthdaily., Disp: 90 tablet, Rfl: 1 ??? amLODIPine (Norvasc) 10 mg Tablet, Take 0.5 tablets by mouth daily., Disp: 90 tablet, Rfl: 3 ??? fluticasone propionate (FLONASE) 50 mcg/actuation [place], Suspension, INSTILL 2 SPRAYS INTO EACH NOSTRIL ONCE A DAY NEEDED, Disp: , Rfl: ??? albuterol (PROVENTIL) 2.5 mg /3 mL (0.083 %) Solution for Nebulization, Take 3 mLs by nebulization every 4 hours as needed for Wheezing., Disp: 90 mL, Rfl: 3 ??? multivitamin with minerals Tablet, Take 1 tablet by mouth Daily., Disp: , Rfl: ??? LEVEMIR FLEXTOUCH U-100 INSULN Insulin Pen, Inject 50-80 Units subcutaneously 2 times daily. ICD10 Code: E11.40, Disp: 45 mL, Rfl: 11 ??? cholecalciferol, Vitamin D3, 2,000 unit Tablet, Take 1 tablet by mouth daily., Disp: 90 tablet, Rfl: 3 ??? liraglutide (VICTOZA 3-FAZAL) 0.6 mg/0.1 mL (18 mg/3 mL) Pen Injector, Inject 1.2 mg subcutaneously daily., Disp: 6 mL, Rfl: 11 ??? insulin needles, disposable, 29 gauge x 1/2 Needle, 1 Device by [facility].(Non- Drug; Combo Route) route 3 times daily., Disp: 100 each, Rfl: 3 ??? atorvastatin (LIPITOR) 20 mg Tablet, Take 1 tablet by mouth daily., Disp: 90 tablet, Rfl: 3 ??? folic acid (FOLVITE) 1 mg Tablet, Take 2 tablets by mouth daily., Disp: 180 tablet, Rfl: 3 ??? omeprazole (PRILOSEC) 40 mg Capsule, Delayed Release(E.C.), Take 1 capsule by mouth daily., Disp: 90 capsule, Rfl: 3 ??? acetaminophen (TYLENOL) 325 mg Tablet, Take 650 mg by mouth every 4 hours as needed for Pain. Reported on 08/06/2016, Disp: , Rfl: ??? Miscellaneous Medical Supply Mis, 4 Devices by Mis.(Non-Drug; Combo Route) route daily. Rubbersheath for leg prosthesis (2 pairs), Disp: 4 each, Rfl: PRN ??? BD INSULIN PEN NEEDLE UF ORIG 29 gauge x 1/2 Needle, , Disp: , Rfl: 0 ??? aspirin 81 mg EC tablet, Take 81 mg by mouth daily., Disp: , Rfl: Today's changes: calcitriol 0.5 mcg qd and losartan 25 mg qhs. He is currently being treated for a UTI. ?? Immunization History Administered Date(s) Administered ??? Hepatitis B Vaccine, unspecified formulation 08/20/2004, 09/28/2004, 03/01/2005 ??? Influenza PF, Split 05/13/2016 ??? Influenza Vaccine, High Dose Quadrivalent PF 10/05/2021 ??? Influenza Vaccine, Whole 05/19/2005, 06/25/2008 ??? Moderna Covid-19 Vaccine (100mcg/0.5ml) 10/20/2020, 11/17/2020 ??? Pneumococcal Conjugate (13 Valent) 07/09/2015 ??? Pneumococcal Polyvalent 23 12/20/1996, 02/10/2007, 02/23/2012, 03/21/2019 ??? Td, adult 06/24/1990 ??? Tdap Vaccine 07/13/2013 2 additional Moderna vaccines given total #4 ? Allergies Allergen Reactions ??? Penicillins Anaphylaxis ??? Iftikhar Inhibitors ? Cough ??? Clindamycin Hcl Rash ??? Allergenic Extracts ? Birch and Nut Trees, cats, dust, pollen bird feathers ??? Ibuprofen ? Levemir [Insulin Detemir] ? Contraindicated - kidney transplant ??? Sulfamethoxazole-Trimethoprim ?? A 12 point review for uremic signs and symptoms was negative including loss of stamina and endurance. ?? PHYSICAL EXAM:?? Vitals Flowsheet Row Office Visit from 03/17/2022 in Solid Organ Transplant at [facility] Weight 130.4 kg (287 lb 6.4 oz) Temp 36.9 ??C (98.4 ??F) Temp src Oral Heart Rate 68 BP 140/70 Patient Position Sitting SpO2 98 % Appearance - Awake and alert. NAD. Morbidly obese. Skin -??eschars in papular distribution upper/midthorax to back HEENT - No sclera icterus. Moist oral mucosa. Chest - Lungs CTA. Heart - S1 and S2. RRR. No MRG. No JVD. Abd - Obese. Soft. Non-tender. Normal BS. Ext - LUE AVF with bruit and thrill. Warm extremities. No cyanosis. Bilateral prosthetic legs. Neuro - Normal speech. Left hand resting tremor.? Labs obtained form an outside lab 02/24/2022 Wbc 6520, hgb 9.9, plt 191K Iron 47 (low), TIBC 179 (low) transferrin sat 26% (nl)ferritin 105 (nl) BUN 28, creat 3.3 estim GFR 20 cc/min Albumin 2.8 gm/dL Vitamin B12 and folate both elevated Tac trough 3.7 PTH 162 Calcitriol < 6.0 pg/mL thus not converting 25-hydroxy D3 hgbA1C 6.1% Urine P/C 5.66 Renzo protein Ab +; > 250 U/mL ?? IMPRESSION/ RECOMMENDATIONS: 1. Graft function - failing graft, considering DD kidney 13??years out with creatinine rise to??3.3 to 3.5??mg/dL and progressive proteinuria??most likely due to diabetic nephropathy recurrence. Function has deteriorated over the years likely due to poor diabetic control and dehydration.??Now his control is improved but too little too late.??Losartan and lisinopril discont'd due to side effects now proteinuria is becoming symptomatic (lower serum albumin and fluid retention) and thus I restarted lowdose losartan.??However the ckd-epi equation is not accurate in a graft. His physiologic renal function tells us that his GFR is somewhere around 20 cc/min (anemic without RTA of CKD). 2. Immunosuppression - Continue Prograf 1/ 0.5 mg BID and Cellcept 500mg BID.?? 3.??CKD stage 4- physiologic GFR appears to be??>??20 cc/min with a) renal osteodystrophy, anemiaof CKD and RTA of CKD. GFR hard to interpret with bilateral BKAs. ?- Labs reviewed. Ca++ and Phos WNL.??PTH elevated and 1,25 dihydroxy vit D3??low ?calcitriol to??0.5??mcg qd ?- ??hgb below 10, with poor retic response; Dr. Baez following - I would give him a trial of iv iron ?- labs q 3 months, watch for progressive AG acidosis 4. Hyperlipidemia - Continue heart healthy diet. Continue Atorvastatin 20mg daily. 5. Diabetes - A1C??excellent. Markedly improved. Working with Dr Hernandez?to improve glycemic control. Healthy diet and regular physical activity (upper extremities etc) for weight loss discussed. ?Diet recs: 2000 mg salt, 75 gm protein 6. New onset AF dx October 2018,??followed by Dr. Quispe 7.Healthcare maintenance - See section above. 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 flu shot first two weeks in April; multi valent COVID vaccine when available ?? RTC in??6 months??with labs, quarterly; followed in CKD clinic Discussion with the patient and/or family concerned the following: ???Diagnostic results or recommended studies ???Prognosis; ???Risks and benefits of management; ???Instructions for management; ???Compliance with treatment; ???Risk factor reduction; ???Patient and family education. ?? Total time: 25 of 30 min in direct face to face counselor aide. documented in this encounter Plan of Treatment Upcoming Encounters Date Type Specialty Care Team Description 05/26/2022 Office Visit Otolaryngology Ricardo Panda PA [facility] [address] [place] [address] (Wo rk) 06/02/2022 Infusion Hematology and Oncology 06/16/2022 Infusion Hematology and Oncology 06/21/2022 Office Visit Neurology Tyler Rojas MD [facility] Neurology [place], [place] [phone] (Wo rk) 06/30/2022 Infusion Hematology and Oncology 07/14/2022 Infusion Hematology and Oncology 07/28/2022 Infusion Hematology and Oncology 08/11/2022 Infusion Hematology and Oncology 11/04/2022 Office Visit Rheumatology Dante Freedman PA [facility] [place] [place], [place] [address] (Wo rk) documented as of this encounter Visit Diagnoses Diagnosis CKD (chronic kidney disease) stage 4, GF R 15-29 ml/min Chronic kidney disease, Stage IV (severe ) Anemia of chronic renal failure, stage 4 (severe) Renal osteodystrophy Aftercare following organ transplant Prophylactic immunotherapy Need for prophylactic immunotherapy Other complication of kidney transplant documented in this encounter Care Teams Fish Farmer Relationship Specialty Start Date End Date Violetta Sanford MD PCP - General 04/02/14 [address] [place] [address] documented as of this encounter
--- OUTSIDE RECORDS SUMMARY | 2022-05-24 10:46 | XMS_ITS | Encounter Summary ---
:1955 Author Organization [place] [address] Care Team Providers Name Role Phone Violetta Sanford MD Primary Care Provider Reason for Visit Diagnostic Test (Routine) - Closed Specialty Diagnoses / Procedures Referred By Contact Refer red To Contact Gastroenterology Diagnoses Dysphagia, unspecified type HREM - dysphagia Shira Ramírez, [facility] Gastro 4t Procedures High Resolution Esophageal Manometry HREM - dysphagia FLOW COORDINATOR [facility] [place] [address] [place] [address] Referral ID Status Reason Start Date Expiration Date Visits V isits Requested Authorized [id number] Closed Test Only 02/16/2022 02/16/2023 1 1 Encounter Details Date Type Department Care Team Description 02/25/2022 Procedure visit Gastroenterology at [facility] [place]ysphagia, [facility] [place] [address] Social History Tobacco Use Types Packs/Day Years [...] documented as of this encounter Progress Notes Nicky Wood RN - 02/25/2022 10:00 AM EDT A description of the esophageal manometry procedure was provided to the patient. All questions were answered and the patient verbalized understanding. The HREM catheter was placed via the left naris without difficulty. The esophageal manometry procedure was performed and the catheter was removed. The patient tolerated the procedure well. Koby Jimenez MD - 02/25/2022 10:00 AM EDT Images from the original note were not included. HIGH-RESOLUTION ESOPHAGEAL MANOMETRY PROCEDURE NOTE Patient: Leroy Torres Address: [address] [place] [id number] : 1955 Date of service: 02/25/22 Indication: dysphagia Procedure: The patient arrived after an overnight fast. After verbal consent, a Pam motility catheter with 36 circumferential sensors on 1 cm spacing with impedance sensors was inserted transnasally after application of topical anesthesia to the nasal passage. The catheter was positioned so that at least 2 distal sensors were in the stomach and 2 proximal sensors were located above the UES. A 3-5 minute acclimation period was provided followed by 10 wet swallows of 5 cc of water while supine. Normal values while supine: Upper esophageal sphincter residual pressure: < 12 mmHg Upper esophageal sphincter relaxation duration: > 480 msec Distal contractile integral (DCI): > 450 and < 8,000 mmHg x cm x s Distal latency time: > 4.5 sec Integrated EGJ relaxation pressure (IRP): < 15 mmHg Normal EGJ resting pressure (respiratory mean): 15-34 mmHg Findings: - Upper Esophageal Sphincter: normal mean residual pressure and relaxation duration - Body: 0% of swallows failed. 0% of swallows had premature contractions with shortened distal latency time. The remaining 100% of swallows were peristaltic, includin% of swallows with hypercontractility, 0% of swallows with weak peristalsis, and 0% of swallows with large breaks (>5 cm) in the 20mmHg isocontour line. - Esophagogastric Junction: Midpoint located 49 cm from the nares, and proximal extent located at 48cm. The lower esophageal sphincter is located at the same level as the crural diaphragm. Hypertensive resting pressure (mean 57.7 mmHg) and normal IRP in 100% of swallows (median 7.5 mmHg). - Bolus transit: Liquid boluses cleared in 100% of swallows with proximal bolus escape in 30% of swallows. - Five subsequent upright swallows: Integrated relaxation pressure: 1.7 mmHg (normal <12 mmHg) - Multiple rapid swallows: Peristaltic reserve: intact (ratio of post-multiple rapid swallow DCI to median DCI on 10 supine swallows is >=1.0) with likely respiratory artifact Deglutitive inhibition: normal deglutitive inhibition (DCI <100 mmHg*s*cm) during the maneuver Integrated relaxation pressure: 0.0 mmHg (normal <12 mmHg) - Rapid drink challenge: Esophageal body contractility: normal deglutitive inhibition (DCI <100 mmHg*s*cm) during the maneuver and normal post-maneuver contractility Integrated relaxation pressure: 0.0 mmHg (normal <12 mmHg) Energy Attorney swallow: Impressions based on [place]on Classification v4.0: No evidence of a clinically significant disorder of peristalsis or EGJ outflow obstruction. *These findings assume that mechanical obstruction has been ruled out. Koby Jimenez MD Section of Gastroenterology and Hepatology [facility] [place] [phone] V: [phone] F: [phone] CC/EC: Violetta Sanford MD [facility] [address] [place] [address] [address] documented in this encounter Plan of Treatment Upcoming Encounters Date Type Specialty Care Team Description 05/26/2022 Office Visit Otolaryngology Ricardo Panda PA [facility] [address] [place] [address] (Wo rk) 06/02/2022 Infusion Hematology and Oncology 06/16/2022 Infusion Hematology and Oncology 06/21/2022 Office Visit Neurology Tyler Rojas MD [facility] er Neurology [place], [place] [phone] (Wo rk) 06/30/2022 Infusion Hematology and Oncology 07/14/2022 Infusion Hematology and Oncology 07/28/2022 Infusion Hematology and Oncology 08/11/2022 Infusion Hematology and Oncology 11/04/2022 Office Visit Rheumatology Dante Freedman PA [facility] RHEUMATOLOGY [place], [place] [address] (Wo rk) documented as of this encounter Visit Diagnoses Diagnosis Dysphagia, unspecified type documented in this encounter Care Teams Signal Tower Director Relationship Specialty Start Date End Date Violetta Sanford MD PCP - General 04/02/14 [address] [place] [address] documented as of this encounter
--- OUTSIDE RECORDS SUMMARY | 2022-05-24 10:46 | XMS_ITS | Encounter Summary ---
:1955 Author Organization [facility] [place] [address] Care Team Providers Name Role Phone Violetta Sanford MD Primary Care Provider Reason for Visit Reason Comments Injections Andrea. Treatment/Therapy Plan Authorization (Routine) - Authorized Specialty Diagnoses / Procedures Referred By Contact Refer red To Contact Hematology and Diagnoses CKD (chronic kidney disease) stage 4, GFR 15-29 ml/min Nicky Baez Hem Onc Office Oncology Procedures ANDREA Ramirez MD [address] [place] [address] HEMATOLOGY/ONCOLOGY [id number] [place] [address] Referral ID Status Reason Start Date Expiration Date Visits V isits Requested Authorized [id number] Authorized 10/08/2020 06/23/2022 99 99 Encounter Details Date Type Department Care Team Description 01/28/2022 Infusion Hematology Oncology at [facility] of chronic renal [facility] failure, stage 4 (severe) [address] [place] [address] [phone] Social History Tobacco Use Types [...] Sign Reading Time Taken Comments Blood Pressure 151/53 01/28/2022 11:45 AM EDT Pulse 71 01/28/2022 11:45 AM EDT Temperature 37.1 ??C (98.7 ??F) 01/28/2022 11:45 AM EDT Respiratory Rate 18 01/28/2022 11:45 AM EDT Oxygen Saturation 99% 01/28/2022 11:45 AM EDT Inhaled Oxygen Concentration - - Weight 120.7 kg (266 lb) 01/28/2022 11:45 AM reported b y PT EDT Height 193 cm (6' 3.98) 01/28/2022 11:45 AM EDT Body Mass Index 32.4 01/28/2022 11:45 AM EDT documented in this encounter Progress Notes Lindsay Lerma RN - 01/28/2022 12:00 PM EDT INFUSION THERAPY ADMINISTRATION NOTES DIAGNOSIS: Iron Deficiency/CKD REASON FOR VISIT: Aranesp SUBJECTIVE Reuben offers no complaints. OBJECTIVE LAB DATA: WBC 6.64, HGB 8.9, HCT 29.2, PLT 167, ANC 3.91 Ferritin 135 Pre administration: Medication orders independently verified for drug name, route, and dosage per patient's height, weight and BSA by Lindsay Lerma RN and [facility]. REACTIONS (DESCRIPTION, TIME, INTERVENTION AND EFFECTIVENESS) none ASSESSMENT Reuben was awake, alert and tolerated treatment well. Aranesp given in [place]. PLAN Return to clinic in 2 weeks. documented in this encounter Plan of Treatment Upcoming Encounters Date Type Specialty Care Team Description 05/26/2022 Office Visit Otolaryngology Ricardo Panda PA [facility] [address] [place], [place] [address] (Wo rk) 06/02/2022 Infusion Hematology and Oncology 06/16/2022 Infusion Hematology and Oncology 06/21/2022 Office Visit Neurology Tyler Rojas MD [facility] er Neurology [place], [place] [phone] (Wo rk) 06/30/2022 Infusion Hematology and Oncology 07/14/2022 Infusion Hematology and Oncology 07/28/2022 Infusion Hematology and Oncology 08/11/2022 Infusion Hematology and Oncology 11/04/2022 Office Visit Rheumatology Dante Freedman PA [facility] RHEUMATOLOGY [place], [place] [address] (Wo rk) documented as of this encounter Visit Diagnoses Diagnosis Anemia of chronic renal failure, stage 4 (severe) documented in this encounter Administered Medications Inactive Administered Medications - up to 3 most recent administrations Medication Order MAR Action Action Date Dose Rate Site darbepoetin cristy-polysorbate Given 01/28/2022 12:17 PM EDT 300 m cg Right Arm (Aranesp) (300 mcg/0.6 mL) injection 300 mcg 300 mcg, Subcutaneous, ONCE, 1 dose, On Lucie 01/28/22 at 1200, Hold parameters for MDS and chemotherapy-induced anemia: Hemoglobin greater than or equal to 10 gm/dL Hematocrit greater than or equal to 30% Hold parameters for CKD: Hemoglobin greater than or equal to 12 gm/dL Hematocrit greater than or equal to 36%, Routine, What is the indication of use? Chronic Kidney Disease (CKD) documented in this encounter Care Teams National Sales Associate Relationship Specialty Start Date End Date Violetta Sanford MD PCP - General 04/02/14 [facility] [address] [place] [address] documented as of this encounter
--- OUTSIDE RECORDS SUMMARY | 2022-05-24 10:46 | XMS_ITS | Encounter Summary ---
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 [place] [id number] [phone] Social History Tobacco Use Types Packs/Day Years [...] Sign Reading Time Taken Comments Blood Pressure 151/62 02/09/2022 10:00 AM EDT Pulse 60 02/09/2022 10:00 AM EDT Temperature 36.3 ??C (97.3 ??F) 02/09/2022 10:13 AM EDT Respiratory Rate 18 02/09/2022 10:00 AM EDT Oxygen Saturation 97% 02/09/2022 10:00 AM EDT Inhaled Oxygen Concentration - - Weight - - Height - - Body Mass Index - - documented in this encounter Discharge Instructions Patient InstructionsAwa Frye MD - 02/09/2022 9:22 AM EDT Instructions for Patient at Discharge: What to expect: Left sided ear drainage and mild discomfort, with itching. Medications: Antibiotics - take the antibiotics as prescribed. Take ciprofloxacin drops three times daily for 5 days. Pain Control - use acetaminophen (Tylenol) and/or ibuprofen (Motrin, Advil) as needed. You can take 500 mg to 650 mg of Tylenol every 4-6 hours as needed. Do not exceed 4g acetaminophen per day and do not drink alcohol while taking tylenol. Constipation - Consider the use of OTC Senna/Docusate, Miralax, Metamucil, prune juice or various suppositories if you have any constipation (especially if related to narcotic/opoid related pain medication) Activity: A good rule of thumb is if it hurts don't do it. Keep your head elevated when lying flat. No heavy lifting or straining for the next week. No smoking, this is important for wound healing. Diet: Resume baseline diet You should call your doctor if you develop: -Increasing pain and redness -Increasing drainage from the wound -Fever > 38.5Celsius or 101 Fahrenheit -Bleeding Contact: -You can reach the ENT clinic at [phone] for appointment questions. -The ENT triage nurse is available at [phone] -For urgent issues during evenings (5 PM - 7 AM) and weekends the ENT resident director of land acquisition can be reached through the main hospital casting operator helper at [phone] Follow Up: You will need to follow up with ENT. This appointment has been requested. You will be notified once it is scheduled, if you do not already see it below. If you do not hear from us in a timely manner, please call to receive your date and time. Currently Scheduled Appointments and VNA instructions: Future Appointments and Orders Future Appointments and Orders Future Appointments Provider Department Dept Phone 02/10/2022 12:30 PM [facility] INFUSION, ROOM Hematology Oncology at [facility] Arrive at: [facility] door at end of hallway [phone] 02/16/2022 3:00 PM Shira Ramírez APRN Gastroenterology at [facility] Arrive at: [facility] 02/24/2022 12:00 PM [facility] INFUSION, ROOM Hematology Oncology at [facility] Arrive at: [facility] door at end of hallway [phone] 03/10/2022 1:00 PM [facility] INFUSION, ROOM [facility]ology [facility]cology at [facility] [phone] 03/17/2022 9:45 AM Keerthi Mckenzie AUD; AUDIOLOGY, [facility] Audiology at [facility] Arrive at: [facility] [phone] 03/17/2022 10:40 AM Iraj Scott MD Otolaryngology at [facility] Arrive at: [facility] [phone] 03/24/2022 12:00 PM [facility] INFUSION, ROOM Hematology Oncology at [facility] at end of hallway [phone] 04/07/2022 12:00 PM [facility] INFUSION, ROOM Hematology Oncology at [facility] at end of hallway [phone] 04/21/2022 11:30 AM Nicky Baez MD Hematology/Oncology at [facility] Arrive at: [facility] door at end of hallway [phone] 04/21/2022 12:00 PM STJ INFUSION, ROOM Hematology Oncology at [facility] at end of hallway [phone] 06/21/2022 11:00 AM Shivam Rojas MD Neurology at [facility] Arrive at: [place] [facility] [phone] documented in this encounter Medications at Time of Discharge Medication Sig Dispensed Refills Start Date End Date guaiFENesin ER Take 1,200 mg by mouth 0 (Mucinex) 600 mg 2 times daily. Tablet Extended Release 12hr ipratropium-albuteroL Inhale into the lungs. 0 (Duoneb) 0.5 mg-3 mg(2.5 mg base)/3 mL Solution for Nebulization montelukast Take 10 mg by mouth 0 10/14/2021 (Singulair) 10 mg daily. Tablet FreeStyle Gilberto 2 1 each by 6 kit 3 08/07/2021 Sensor Kit [facility]Non-Drug; Combo Route) route every 14 days. Use to continuously monitor blood glucose. Scan at least 4 times per day. FreeStyle Gilberto 2 Use to continuously 1 each 0 2 Viola [facility] monitor blood glucose. Scan at least 5 [...] 6 kit 3 01/13/2021 Day Sensor Kit [facility].(Non-Drug; Combo Route) route every 14 days. Use to continuously monitor blood glucose. Scan at least 5 times per day. DX: E11.65 darbepoetin cristy in Inject 300 mg as 0 polysorbat 10 mcg/0.4 directed as needed. mL Syringe cyanocobalamin, Take 100 mcg by mouth 0 Vitamin B-12, daily. (Vitamin B-12) 100 mcg Tablet Blood-Glucose Sensor by [facility].(Non-Drug; 0 (Dexcom G6 Sensor) Combo Route) route. Device Sensor, tube bender hand andtransmitter metoprolol succinate Take 1 tablet by mouth 90 tablet 1 04/2020 XL (Toprol-XL) 50 mg daily. Tablet Sustained Release 24 hr amLODIPine (Norvasc) Take 0.5 tablets by 90 tablet 3 2019 10 mg Tablet mouth daily. fluticasone INSTILL 2 SPRAYS INTO 0 09/06/2019 propionate (FLONASE) EACH NOSTRIL ONCE A 50 mcg/actuation DAY NEEDED Dillon, Suspension multivitamin with Take 1 tablet by mouth 0 minerals Tablet Daily. LEVEMIR FLEXTOUCH Inject 50-80 Units 45 mL 11 02/13/2018 U-100 INSULN Insulin subcutaneously 2 times Pen daily. ICD 10 Code: E11.40 liraglutide (VICTOZA Inject 1.2 mg 6 mL 11 03/09/2017 3-FAZAL) 0.6 mg/0.1 mL subcutaneously daily. (18 mg/3 mL) Pen InjectorIndications: Type 2 diabetes mellitus with complication, with long-term current use of insulin insulin needles, 1 Device by 100 each 3 03/09/2017 disposable, 29 gauge Misc.(Non-Drug; Combo x 1/2 Route) route 3 times [...] 10/202105/04/2022 50 mg Tablet 4 times daily. ciprofloxacin-dexAMET Place 4 drops into the 7.5 mL 3 02/14/2022 Hasone (Ciprodex) left ear 3 times daily 0.3-0.1 % Drops, for 5 days. Suspension CellCept 250 mg TAKE 2 CAPSULES BY 120 capsule 5 09/15/2021 03/23/2022 CapsuleIndications: MOUTH 2 TIMES DAILY Transplanted kidney Prograf 0.5 mg TAKE 1 CAPSULE BY 30 capsule 5 09/15/2021 CapsuleIndications: MOUTH NIGHTLY. Transplanted kidney, Other complication of kidney transplant, Prophylactic immunotherapy Prograf 1 mg TAKE 1 CAPSULE BY 30 capsule 5 09/15/202103/23 CapsuleIndications: MOUTH DAILY Transplanted kidney cholecalciferol, Take 1 tablet by mouth 90 tablet 3 018 03/17/2022 Vitamin D3, 2,000 daily. unit TabletIndications: Vitamin D deficiency documented as of this encounter Progress Notes Monico Hawley RN - 02/09/2022 10:10 AM EDT Patient showing occasional missed beats on monitor. Dr. Che Notified stated patient showing this inthe OR. Dr. Che at bedside to assess patient told patient to follow up with home physician and followup with labs. Ok to discharge patient. Patient denies chest pain, denies shortness of breath. Vitalsigns as noted on flow sheet. Patient discharge to home. IV removed, site benign. My assessment remains unchanged from my previousassessment. RN Discussed pain management with patient, pain tolerable. Patient has all belongings and supplies needed. Patient received After Visit Summary and prescriptions sent to home pharmacy. These were reviewed, patient and verbalizes understanding of AVS. All questions answered. Patient encouraged to call with questions or concerns. Patient discharged to home with family. documented in this encounter H&P Notes Leny Brewster MD - 02/09/2022 7:31 AM EDT OTOLARYNGOLOGY - HEAD & NECK SURGERY INTERVAL H&P NOTE Name: Leroy Torrse Age/Sex: 66 y.o. male Attending: Iraj Scott MD Hospital Day: 1 Day of Surgery Interval History Please see clinic/scanned H&P dated 01/14 In brief, Leroy Torres presents today for LEFT myringotomy and tube insertion. There have been no changes to his history. Patient denies symptoms of COVID, exposure to COVID or any known COVID contacts. Physical Exam Patient Vitals for the past 24 hrs: Temp Pulse Resp BP SpO2 O2 Device 02/09/22 0622 37.1 ??C (98.8 ??F) 70 16 155/60 97 % RA Gen: No acute distress, alert and answers questions appropriately Decreased hearing on LEFT CV: Regular rate Pulm: Unlabored breathing Abd: Abdomen soft and non-tender Ext: No peripheral edema ASSESSMENT & PLAN Plan for OR as above. Consent signed, dated, placed in chart Ok to proceed with scheduled operation. Leny Brewster MD, PGY2 02/09/22 7:32 AM ENT Team Pager: [phone] documented in this encounter Miscellaneous Notes Op Note - Awa Frye MD - 02/09/2022 8:31 AM EDT [facility] Operative Note Patient Name: Leroy Torres : [id number] MR#: [id number] Case Date: 02/09/2022 Surgeon: Surgeon(s) and Role: * Archie Avila MD - Primary * Awa Frye MD - Resident * Leny Brewster MD - Resident Preoperative diagnosis: chronic otitis media with effusion, left ear Postoperative diagnosis: chronic otitis media with effusion, left ear Procedure(s) (LRB): MYRINGOTOMY, INSERTION OF TUBE (WRVU 2.01) (Left) MICROSCOPE USE (WRVU 3.46) (Left) MODIFIER,ENT UNCOMPLICATED (N/A) Findings: Serous otitis media with copious drainage sent for culture. Curvilinear canal with prominent anterior canal bulge. TM is midposition with pulsations from middle ear fluid and dimeric window noted posteriorly likely indicative of previous myringotomy site. Anesthesia: MAC Estimated Blood Loss:1cc Specimens removed during surgery: None Drains: n/a Surgical Closure: n/a Disposition: awakened from anesthesia, extubated and taken to the recovery room in a stable condition, having suffered no apparent untoward event. Condition: doing well without problems (Please see the Surgical Encounter Summary for any Implant and Specimen details pertinent to this patient.) HPI/Surgical Indications: Leroy Torres is a 66 y.o. male with a history of mixed conductive hearing loss and otitis media here for myringotomy tube placement on left side. Procedure Description: The external auditory canal was examined and cleaned of cerumen under the operating microscope usingcurette. Anterior-inferior quadrant myringotomy was performed on left side Findings noted above. Paparella style PE tubes placed and flushed with CiproHC otic drops. Surgical Infection Prevention Bundle Used? N/A Associated attestation - Archie Avila MD - 02/09/2022 10:43 AM EDT Attestation: Case Date: 02/09/2022 I was present and I participated during the entire procedure (does not need to include opening and closing). Archie Avila MD 02/09/2022 documented in this encounter Plan of Treatment Upcoming Encounters Date Type Specialty Care Team Description 05/26/2022 Office Visit Otolaryngology Ricardo Panda PA [facility] [address] [place] [address] (Wo gregg) 06/02/2022 Infusion Hematology and Oncology 06/16/2022 Infusion Hematology and Oncology 06/21/2022 Office Visit Neurology Tyler Rojas MD [facility] Neurology [place], [place] [phone] (Wo gregg) 06/30/2022 Infusion Hematology and Oncology 07/14/2022 Infusion Hematology and Oncology 07/28/2022 Infusion Hematology and Oncology 08/11/2022 Infusion Hematology and Oncology 11/04/2022 Office Visit Rheumatology Dante Freedman PA [facility] RHEUMATOLOGY [place], [place] [address] (Wo rk) documented as of this encounter Procedures Procedure Name Priority Date/Time Associated Diagnosis Comme nts IMPLANTABLE DEVICES 02/10/2022 12:00 SCAN AM EDT POCT GLUCOSE Routine 02/09/2022 9:26 Results for this AM EDT procedure are i n the results section. HC CONC. FOR Routine 02/09/2022 8:45 INFECTIOUS AGENTS AM EDT BODY FLUID CULTURE, Routine 02/09/2022 8:45 Resul ts for this AEROBIC AM EDT procedure are i n the results section. MYRINGOTOMY, Routine 02/09/2022 8:33 Chronic mucoid otitis INSERTION OF TUBE AM EDT media of left ear ETD (Eustachian tube dysfunction), le ft Mixed conductive and sensorineural hearing loss of left ear with restricted hearing of right ear MODIFIER,ENT Yes 02/09/2022 8:13 Chronic mucoid otitis UNCOMPLICATED AM EDT media of left ea r ETD (Eustachian tube dysfunction), le ft Mixed conductive and sensorineural hearing loss of left ear with restricted hearing of right ear MICROSCOPE USE (WRVU Yes 02/09/2022 8:13 Chronic mucoid ot itis 3.46) AM EDT media of left ea r ETD (Eustachian tube dysfunction), le ft Mixed conductive and sensorineural hearing loss of left ear with restricted hearing of right ear MYRINGOTOMY, Yes 02/09/2022 8:13 Chronic mucoid otitis INSERTION OF TUBE AM EDT media of left ear (WRVU 2.01) ETD (Eustachian tube dysfunction), le ft Mixed conductive and sensorineural hearing loss of left ear with restricted hearing of right ear HC PHOSPHORUS, SERUM STAT 02/09/2022 6:43 Resu lts for this AM EDT procedure are i n the results section. HC MAGNESIUM, SERUM STAT 02/09/2022 6:43 Resul ts for this AM EDT procedure are i n the results section. BASIC METABOLIC PANEL STAT 02/09/2022 6:43 Res ults for this (NON-FASTING) AM EDT procedure are in the results section. POCT GLUCOSE Routine 02/09/2022 6:26 Results for this AM EDT procedure are i n the results section. MICROSCOPE USE Routine 02/09/2022 5:58 Chronic mucoid otitis AM EDT media of left ea r ETD (Eustachian tube dysfunction), le ft Mixed conductive and sensorineural hearing loss of left ear with restricted hearing of right ear documented in this encounter Results SCAN DOC: IMPLANTABLE DEVICES (02/10/2022 12:00 AM EDT) Narrative This result has an attachment that is no t available. Unknown MEDIA MGR SCAN EXT ORDR/RSLT POCT Glucose (02/09/2022 9:26 AM EDT) athologist Signature POC Glucose 102 65 - 199 [facility] mg/dL [facility] Comment: Supplemental ranges: <140 mg/dL before meals <180 mg/dL all other times of the day Specimen Anatomical Collection Method Collection Time Receive d Time (Source) Location / / Volume Laterality Blood 02/09/2022 9:26 AM 9:26 EDT AM EDT Iraj Scott MD POINT OF CARE TEST ORDERABLE S Performing Organization Address City/State/ZIP Code Phon e Number [address] Body Fluid Culture, Aerobic (02/09/2022 8:45 AM EDT) Component Value Ref Test Analysis Performed At [facility] gist Range Method Time Signature Body Fluid No growth [facility] Culture [facility] Gram Stain Cytocentrifuge Gram Stain performed [facility] Neutrophils seen [place] No microorganisms seen. [facility] Specimen Anatomical Collection Method Collection Time Receive d Time (Source) Location / / Volume Laterality Middle Ear Fluid 02/09/2022 8:45 AM 02/09 EDT 10:00 AM EDT Comment: Left middle ear fluid. Aerobic Resulting Agency Comment Spec In Lab Archie Avila MD MICROBIOLOGY - GENERAL ORDER STEPHANIE Performing Organization Address City/State/ZIP Code Phon e Number [address] Phosphorus (02/09/2022 6:43 AM EDT) athologist Signature Phosphorus 3.2 2.5 - 4.5 [facility] mg/dL [facility] Specimen Anatomical Collection Method Collection Time Receive d Time (Source) Location / / Volume Laterality Blood 02/09/2022 6:43 AM 2 7:04 EDT AM EDT Resulting Agency Comment Spec In Lab Iraj Scott MD CHEMISTRY ORDERABLES Performing Organization Address City/[facility]/ZIP Code Phon e Number [address] (ABNORMAL) Magnesium (02/09/2022 6:43 AM EDT) P athologist Signature Magnesium 0.67 (L) 0.69 - 1.07 [facility] mmol/L [facility] Specimen Anatomical Collection Method Collection Time Receive d Time (Source) Location / / Volume Laterality Blood 02/09/2022 6:43 AM 2 7:04 EDT AM EDT Resulting Agency Comment Spec In Lab Iraj Scott MD CHEMISTRY ORDERABLES Performing Organization Address City/[facility]/[place] [address] (ABNORMAL) Basic Metabolic Panel (non-fasting) (02/09/2022 6:43 AM EDT) P athologist Signature Glucose Lvl 103 65 - 199 [facility] mg/dL [facility] Comment: Diabetes: >=200 mg/dL plus symp toms BUN 31 (H) 10 - 20 mg/dL [facility] Creatinine 2.49 (H) 0.80 - 1.50 mg/dL [facility] Sodium 141 135 - 145 mmol/L [facility] Potassium 4.2 3.5 - 5.0 mmol/L [facility] Comment: Please note: ??Patients with WBC >100,00 0 may have falsely elevated Potassium levels. ??For accurate Potassium quantif ication in these patients send serum separator tube (gold top) for subsequent determinations. ??Contact the Clinical Chemistry Laboratory if there are any qu estions. Chloride 108 (H) 98 - 107 mmol/L [facility] CO2 22 22 - 31 mmol/L [facility] Anion Gap 11 5 - 15 mmol/L [facility] Calcium 8.4 (L) 8.5 - 10.5 mg/dL [facility] Estimated GFR 27 (L) >=60 mL/min/1.73 m?? [facility] Comment: This patient's estimated GFR was calcula milli using the 2020 CKD-EPI equation. The estimated GFR can vary from the obed ured GFR by up to 30% in the absence of rapidly changing kidney function. Assess ment of the estimated GFR is not appropriate when creatinine concentratio ns are rapidly changing. For clinical situations in which a more precise estim ate of GFR is necessary, consider alternative methods of GFR estimation garcía ch as a 24-hour urine creatinine clearance. Assignment of CKD stage 1-5 for patients with an eGFR near the transition point between stages may be based on clinical assessment of muscle mass and symptoms in addition to eGFR. Specimen Anatomical Collection Method Collection Time Receive d Time (Source) Location / / Volume Laterality Blood 02/09/2022 6:43 AM 2 7:04 EDT AM EDT Resulting Agency Comment Spec In Lab Iraj Scott MD CHEMISTRY ORDERABLES Performing Organization Address City/State/[place] [address] POCT Glucose (02/09/2022 6:26 AM EDT) P athologist Signature POC Glucose 110 65 - 199 [facility] mg/dL [facility] Comment: Supplemental ranges: <140 mg/dL before meals <180 mg/dL all other times of the day Specimen Anatomical Collection Method Collection Time Receive d Time (Source) Location / / Volume Laterality Blood 02/09/2022 6:26 AM 2 6:26 EDT AM EDT Iraj Scott MD POINT OF CARE TEST ORDERABLE S Performing Organization Address City/State/[place] [address] documented in this encounter Visit Diagnoses Diagnosis Chronic mucoid otitis media of left ear Simple or unspecified chronic mucoid beth tis media ETD (Eustachian tube dysfunction), left 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 Maximum dose of acetaminophen is 4,000 mg from all sources in 24 hours., Day of Surgery (Day of Procedure), Routine documented in this encounter Active and Recently Administered Medications Times are shown in EDT. Scheduled Medication Order 02/07/2022 02/08/2022 02/09/2022 acetaminophen (Tylenol) tablet 1,000 mg (COMPLETED) 625 (Given - Provider: Loretta Carter RN) 1,000 mg, Oral, ONCE, 1 dose, On 01/22 at 0630, Administer with SIP of H2O only. Maximum dose of acetaminophen is 4,000 mg from all sources in 24 hours., Day of Surgery (Day of Procedure), Routine Continuous Medication Order 02/07/2022 02/08/2022 02/09/2022 lactated ringers infusion (CANCELED) 0823 (New Bag - Provider: Kareem Bowden MD)0834 (Anesthesia Volume Adjustment - Provider: Kareem Bowden MD) 1,000 mL, at 100 mL/hr, Intravenous, CON TINUOUS, Starting on Tue02/09/22 at 0630, Until Tue02/09/22 at 1025, Day of Surgery (Day of Procedure) PRN Medication Order 02/07/2022 02/08/2022 02/09/2022 ciprofloxacin-dexAMETHasone (Ciprodex) 0.3-0.1 % otic suspension (CANCELED) 0912 (Given - Provider: Archie Avila MD) ONCE PRN, Starting on Tue02/09/22 at 091 2, Until Tue02/09/22 at 1227, Intra- Operative (Intra-Procedure), Routine documented in this encounter Care Teams Regulatory Internship Relationship Specialty Start Date End Date Violetta Sanford MD PCP - General 04/02/14 [address] [place] [address] documented as of this encounter
--- OUTSIDE RECORDS SUMMARY | 2022-05-24 10:46 | XMS_ITS | Encounter Summary ---
:1955 Author Organization [facility] Address [address] [place] [address] Care Team Providers Name Role Phone Violetta Sanford MD Primary Care Provider Reason for Visit Reason Comments Medication Refill Encounter Details Date Type Department Care Team Description 03/23/2022 Refill Solid Organ Transplant Alejo Garnett Transplanted kidney; at [facility] MD Thang Other complication of kidney transplant; [facility] Pro phylactic [place] [address] TRANSPLANT SURGERY [phone] [place], [place] [address] (Wo rk) Social History Tobacco [...] 05/26/2022 Office Visit Otolaryngology Ricardo Panda PA [facility] [address] [place] [address] (Wo rk) 06/02/2022 Infusion Hematology and Oncology 06/16/2022 Infusion Hematology and Oncology 06/21/2022 Office Visit Neurology Tyler Rojas MD [facility] er Neurology [place], [place] [phone] (Wo rk) 06/30/2022 Infusion Hematology and Oncology 07/14/2022 Infusion Hematology and Oncology 07/28/2022 Infusion Hematology and Oncology 08/11/2022 Infusion Hematology and Oncology 11/04/2022 Office Visit Rheumatology Dante Freedman PA [facility] RHEUMATOLOGY [place], [place] [address] (Wo rk) documented as of this encounter Visit Diagnoses Diagnosis Transplanted kidney Kidney replaced by transplant Other complication of kidney transplant Prophylactic immunotherapy Need for prophylactic immunotherapy documented in this encounter Care Teams Instructional Leader Relationship Specialty Start Date End Date Violetta Sanford MD PCP - General 04/02/14 [address] [place] [address] documented as of this encounter
--- OUTSIDE RECORDS SUMMARY | 2022-05-24 10:46 | XMS_ITS | Encounter Summary ---
:1955 Author Organization [facility] [place] [address] Care Team Providers Name Role Phone Voiletta Sanford MD Primary Care Provider Encounter Details Date Type Department Care Team Description 03/25/[address] [facility] [place] [place] [address] Social History Tobacco Use Types Packs/Day [...] encounter Miscellaneous Notes Telephone Encounter - Aria Colón - 03/25/2022 10:03 AM EDT Per pt's request rescheduled the 04/20 appt. documented in this encounter Plan of Treatment Upcoming Encounters Date Type Specialty Care Team Description 05/26/2022 Office Visit Otolaryngology Ricardo Panda, PA [facility] [address] [address] (Wo rk) 06/02/2022 Infusion Hematology and Oncology 06/16/2022 Infusion Hematology and Oncology 06/21/2022 Office Visit Neurology Tyler Rojas MD [facility] er Neurology [place], [place] [phone] (Wo rk) 06/30/2022 Infusion Hematology and Oncology 07/14/2022 Infusion Hematology and Oncology 07/28/2022 Infusion Hematology and Oncology 08/11/2022 Infusion Hematology and Oncology 11/04/2022 Office Visit Rheumatology Dante Freedman PA [facility] [place], [place] [address] (Wo rk) documented as of this encounter Visit Diagnoses Not on filedocumented in this encounter Care Teams Damage Inside Adjuster Relationship Specialty Start Date End Date Violetta Sanford MD PCP - General 04/02/14 [address] [place] [address] documented as of this encounter
--- OUTSIDE RECORDS SUMMARY | 2022-05-24 10:46 | XMS_ITS | Encounter Summary ---
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; [facility] H/O kidney transplant; [place] [address] [place] [address] 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; [phone] OTOLARYNGOLOGY Anemia of chronic renal failure, stage 4 (severe) [place] [address] Social History Tobacco Use Types Packs/Day Years [...] - - Weight 127.9 kg (282 lb) 03/17/2022 10:48 AM EDT Height 185.4 cm (6' 1) 03/17/2022 10:48 AM EDT Body Mass Index 37.21 03/17/2022 10:48 AM EDT documented in this encounter Progress Notes Iraj Scott MD - 03/17/2022 10:40 AM EDT [facility] Otolaryngology - Head and Neck Surgery Iraj Scott MD 03/17/22 11:11 AM [place] [id number] Office Patient Name: Leroy Torres Date of : 1955 PCP: Violetta Sanford MD Chief Complaint: hearing loss Interval History: 03/17/2022: Approximately 1 month follow-up status post [...] right ear. Bone-conduction thresholds essentially symmetric. Speech clinic receptionist thresholds at 30 dB for the right [...] the left. Bone-conduction thresholds essentially symmetric. Speech clinic receptionist thresholds at 20 dB for the right [...] COPD (chronic obstructive pulmonary disease) J44.9 ??? 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 Aftercare following organ transplant Z48.298 ??? Persistent proteinuria R80.1 ??? Prophylactic immunotherapy Z29.8 ??? Chronic atrial fibrillation I48.20 ??? Anemia of chronic renal failure, stage 4 (severe) N18.4, D63.1 ??? Phantom limb pain G54.6 ??? PAF [...] to Visit Medication Sig Dispense Refill ??? ciprofloxacin (Cipro) 500 mg Tablet Take 1 tablet by mouth daily for 10 days. 10 tablet 0 ??? ipratropium-albuteroL (Duoneb) 0.5 mg-3 mg(2.5 mg base)/3 mL Solution for Nebulization Inhale into the lungs. ??? montelukast (Singulair) 10 mg Tablet Take 10 mg by mouth daily. ??? primidone (Mysoline) 50 mg Tablet Take 1 tablet by mouth 4 times daily. 120 tablet 3 ??? CellCept 250 mg Capsule TAKE 2 CAPSULES BY MOUTH 2 TIMES DAILY 120 capsule 5 ??? Prograf 0.5 mg Capsule TAKE 1 CAPSULE BY MOUTH NIGHTLY. 30 capsule 5 ??? Prograf 1 mg Capsule TAKE 1 CAPSULE BY MOUTH DAILY 30 capsule 5 ??? FreeStyle Gilberto 2 Sensor Kit [address] [facility]Non-Drug; Combo Route) route every 14 days. Use to continuously monitor blood glucose. Scan at least 4 times per day. 6 kit 3 ??? FreeStyle Gilberto [address] [facility] Use to continuously monitor blood glucose. Scan [...] 14 Day Sensor Kit [address] [facility]Non-Drug; Combo Route) route every 14 days. Use to continuously monitor blood glucose. Scan at least 5 times per day. DX: E11.65 6 kit 3 ??? cyanocobalamin, Vitamin B-12, (Vitamin B-12) 100 mcg Tablet Take 100 mcg by mouth daily. ??? Blood-Glucose Sensor (Dexcom G6 Sensor) Device by [facility]Non-Drug; Combo Route) route. Sensor, talent advisor andtransmitter ??? metoprolol succinate XL (Toprol-XL) 50 mg Tablet Sustained Release 24 hr Take 1 tablet by mouth daily. 90 tablet 1 ??? amLODIPine (Norvasc) 10 mg Tablet Take 0.5 tablets by mouth daily. 90 tablet 3 ??? fluticasone propionate (FLONASE) 50 mcg/actuation [place], Suspension INSTILL 2 SPRAYS INTO EACH NOSTRIL ONCE A DAY NEEDED ??? albuterol (PROVENTIL) 2.5 mg /3 mL (0.083 %) Solution for Nebulization Take 3 mLs by nebulization every 4 hours as needed for Wheezing. 90 mL 3 ??? multivitamin with minerals Tablet Take 1 tablet by mouth Daily. ??? LEVEMIR FLEXTOUCH U-100 INSULN Insulin Pen Inject 50-80 Units subcutaneously 2 times daily. ICD 10 Code: E11.40 45 mL 11 ??? cholecalciferol, Vitamin D3, 2,000 unit Tablet Take 1 tablet by mouth daily. 90 tablet 3 ??? liraglutide (VICTOZA 3-FAZAL) 0.6 mg/0.1 mL (18 mg/3 mL) Pen Injector Inject 1.2 mg subcutaneouslydaily. 6 mL 11 ??? insulin needles, disposable, 29 gauge x 1/2 [address] [facility]Non- Drug; Combo Route) route 3 times daily. [...] Reported on 08/06/2016 ??? Miscellaneous Medical Supply [facility] [address] [facility]Non-Drug; Combo Route) route daily. Rubber sheath for leg prosthesis (2 pairs) 4 each PRN ??? BD INSULIN PEN NEEDLE UF ORIG 29 gauge x 1/2 Needle 0 ??? aspirin 81 mg EC tablet Take 81 mg by mouth daily. ??? guaiFENesin ER (Mucinex) 600 mg Tablet Extended Release 12hr Take 1,200 mg by mouth 2 times daily. ??? darbepoetin cristy in polysorbat 10 mcg/0.4 mL Syringe Inject 300 mg as directed as needed. No current facility-administered medications on file prior [...] Biopsy Bone Marrow 10/22/2021 Richar Lo MD [facility] RAD CT SCAN ??? PRO AMPUTATION LOW LEG THRU TIB/FIB 06/21/2011 ??AMPUTATION, BELOW-KNEE performed by HENNA GAMINO JR at [facility] OR ??? PRO CREATE EARDRUM OPENING, GEN ANESTH Left 02/09/2022 MYRINGOTOMY, INSERTION OF TUBE (WRVU 2.01) performed by Archie Avila MD at [facility] OR ??? PRO INCISION EARDRUM,ASPIR Left 12/29/2021 MYRINGOTOMY ASPIRATION OF MIDDLE EAR (WRVU 1.38) performed by Iraj Scott MD at [facility] MAIN OR ??? PRO LAP, APPENDECTOMY 06/16/2013 LAPAROSCOPIC APPENDECTOMY performed by Angel Mccann MD at [facility] OR ??? PRO MICROSURG TECHNIQUES, REQ OPER MICROSCOPE Left 12/29/2021 MICROSCOPE USE (WRVU 3.46) performed by Iraj Scott MD at [facility] OR ??? PRO MICROSURG TECHNIQUES, REQ OPER MICROSCOPE Left 02/09/2022 MICROSCOPE USE (WRVU 3.46) performed by Archie Avila MD at [facility] OR ??? US RENAL TRANSPLANT LEFT Left 06/26/2019 US Renal Transplant Left 06/26/2019 [facility] RAD ULTRASOUND Family and Social History Family History: No family history on file. Social History: Lives [place] [id number] Social History Socioeconomic History ??? Marital status: Spouse name: Not on file ??? Number of children: Not on file ??? Years of education: Not on file ??? Highest education level: Not on file Occupational History ??? Not on file Tobacco Use ??? Smoking status: Former Smoker Packs/day: 2.00 Years: 20.00 Pack years: 40.00 Types: Cigarettes Quit date: 01/19/1993 Years since quittin.1 ??? Smokeless tobacco: Never Used Vaping Use ??? Vaping Use: Never used Substance and Sexual Activity ??? Alcohol use: Yes Comment: Once a year ??? Drug use: No ??? Sexual activity: [...] ear is well aerated. Negative fistula test. Left Ear: Auricle normal. External auditory canal cleared of wet exudative and ceruminous yellow debris. No devin purulence. Anterior canal wall bulge with canal narrowing. Modest canal wall edema. Canal otherwise clear. Drum is intact aside from myringotomy tube inferiory, patent. Some clear vs serous discharge. Query intermittent pulsatile component. ASSESSMENT & RECOMMENDATIONS Leroy Torres is a 66 y.o. male who presented with slowly progressive subjective hearing decline bilaterally over the course of the years, with non- limiting nonpulsatile subjective tinnitus bilaterally. He has a past history of significant occupational hazardous noise exposure over the course of many decades. Reports an approximate 1 year history of worsened hearing on the left. Underwent prior myringotomy on the left through outside ENT with aspiration of mucoid middle ear effusion approximatelyone year ago. Attempted tympanostomy tube insertion was not successful, attributed to narrowed bony external auditory canal. We did subsequent office myringotomy [...] Had residual middle ear effusion left ear. Now approximately 1 month status post myringotomy and tube left ear. Hearing is improved. However, patient continues to experience persistent nighttime otorrhea. Scant clear otorrhea evident on exam today. No obvious devin infection. However, will treat empirically with a 2-week course of topical antibiotics and steroids with tragal pumping. Discussed continued dry ear precautions. Explained to the patient and his spouse that I do remain somewhat concerned that this persistent otorrhea and its clear character with pulsations may still be suggestive of CSF otorrhea, despite previous negative testing. Additional consideration may also be given to chronic serous otitis media. We will plan follow-up in approximately 3 to 4 weeks with reassessment. If otorrhea persists, consider repeat aspirate or fluid collection for subsequent repeat beta-2 transferrin testing. Consider also role for tympanomastoidectomy. Patient and spouse in agreement with plan. Patient verbally expressed understanding and was in agreement with the plan as outlined above. Total time spent counseling and coordinating patient care 30 minutes. Iraj Scott MD Otology / Neurotology Otolaryngology - Head & Neck Surgery 03/17/22 11:11 AM documented in this encounter Plan of Treatment Upcoming Encounters Date Type Specialty Care Team Description 05/26/2022 Office Visit Otolaryngology Ricardo Panda PA [facility] [address] [place] 0[address] (Wo rk) 06/02/2022 Infusion Hematology and Oncology 06/16/2022 Infusion Hematology and Oncology 06/21/2022 Office Visit Neurology Tyler Rojas MD [facility] er Neurology [place], [place] [phone] (Wo rk) 06/30/2022 Infusion Hematology and Oncology 07/14/2022 Infusion Hematology and Oncology 07/28/2022 Infusion Hematology and Oncology 08/11/2022 Infusion Hematology and Oncology 11/04/2022 Office Visit Rheumatology Dante Freedman PA [facility] RHEUMATOLOGY [place], [place] [address] (Wo rk) documented as of this encounter Procedures Procedure Name Priority Date/Time Associated Comments Diagnosis URINALYSIS MICROSCOPIC Routine 03/17/2022 11:49 R esults [...] are i n the results section. HC RETIC,AUTO INCLUDES Routine 03/17/2022 11:44 H/O kidney R esults for this RETHE & IRF AM EDT transplant procedure are i n the results section. HC CBC,PLT & AUTO DIFF Routine 03/17/2022 11:44 H/O kidney AM EDT transplant HC URIC ACID, SERUM Routine 03/17/2022 11:44 [...] are i n the results section. HC CHOLESTEROL Routine 03/17/2022 11:44 H/O kidney Results f or this AM EDT transplant procedure are i n the results section. COMPREHENSIVE Routine 03/17/2022 11:44 H/O kidney Results fo r this METABOLIC PANEL AM EDT transplant procedure ar e in (NON-FASTING) the results section. documented in this encounter Results (ABNORMAL) Urinalysis Microscopic Exam (03/17/2022 11:49 AM EDT) athologist Signature RBC UA 5 (H) 0 - 3 /HPF [facility] WBC UA 1 0 - 3 /HPF [facility] Squam Epith UA 1 <=4 /HPF [facility] Hyaline Cast 1 0 - 2 /LPF [facility] Specimen Anatomical Collection Method Collection Time Receive d Time (Source) Location / / Volume Laterality Clean Catch 03/17/2022 11:49 03/17/2022 Urine AM EDT 11:59 AM EDT Resulting Agency Comment Spec In Lab Alejo Garnett MD URINE ORDERABLES Performing Organization Address City/State/[place] [address] (ABNORMAL) Urinalysis with reflex Culture (03/17/2022 11:49 AM EDT) Patholo gist Method Time Signature Glucose UA 100 (A) Negative [facility] mg/dL [facility] Protein UA >=300 (A) Negative [facility] mg/dL [facility] Bilirubin UA Negative Negative [facility] mg/dL [facility] Comment: Clinical correlation required for positi ve Urine Bilirubin results as false positive may occur with some drugs and d rug related products. If a false positive is suspected a serum total bili reyna should be considered if clinically indicated. Urobilinogen UA Normal Normal mg/dL [facility] pH UA 6.0 5.0 - 8.0 [facility] Blood UA Negative Negative mg/dL [facility] Ketones UA Negative Negative mg/dL [facility] Nitrite UA Negative Negative [facility] Leukocytes UA Negative Negative [facility]ORY Appearance UA Clear Clear [facility] Spec [place] UA 1.016 1.005 - 1.030 [facility] Color UA Yellow Yellow [facility] Culture Reflexed No [facility] Specimen Anatomical Collection Method Collection Time Receive d Time (Source) Location / / Volume Laterality Clean Catch 03/17/2022 11:49 03/17/2022 Urine AM EDT 11:59 AM EDT Resulting Agency Comment Spec In Lab Alejo Garnett MD URINE ORDERABLES Performing Organization Address City/State/ZIP Code Phon e Number [address] (ABNORMAL) Protein/Creatinine Ratio, urine (03/17/2022 11:49 AM EDT) Analysis Performed At Patho logist Time Signature U Creatinine 70 mg/dL [facility] U Protein Ran 333 (H) 0 - 12 [facility] mg/dL [facility] Prot/Cre Ratio 4.8 ratio [facility] Specimen Anatomical Collection Method Collection Time Receive d Time (Source) Location / / Volume Laterality Urine 03/17/2022 11:49 03/17/2022 AM EDT 12:01 PM EDT Resulting Agency Comment Spec In Lab Alejo Garnett MD URINE ORDERABLES Performing Organization Address City/[facility]/ZIP Code Phon e Number [address] Differential, Automated (03/17/2022 11:44 AM EDT) P athologist Signature Neutrophils % 57.0 % [facility] Neutr Abs (ANC) 3.90 1.70 - [facility] 6.10 [facility] x10(3)/[facility] LABORATORY Lymphocytes % 28.1 % [facility] Lymphocytes Abs 1.9 0.9 - 3.2 [facility] x10(3)/[facility] LABORATORY Monocytes % 10.1 % [facility] Monocyte Abs 0.7 0.3 - 0.9 [facility] x10(3)/[facility] LABORATORY Eosinophils % 4.4 % [facility] Eosinophils Abs 0.3 0.0 - 0.4 [facility] x10(3)/[facility] LABORATORY Basophils % 0.3 % [facility] Basophils Abs 0.0 0.0 - 0.1 [facility] x10(3)/[facility] LABORATORY Immature Gran % 0.10 % [facility] Comment: Immature granulocytes(IG's)percentage an d absolute count will include metamyelocytes, myelocytes, and promyelo cytes. Blood smears from CBCs yielding IG's will be scanned manually for concor dance. If this scan disagrees with the automated IG or if promyelocytes are not ed, a manual differential will be performed. Courtney Gran Abs 0.01 0.00 - 0.04 x10(3)/[facility] Specimen Anatomical Collection Method Collection Time Receive d Time (Source) Location / / Volume Laterality Blood 03/17/2022 11:44 03/17/2022 AM EDT 12:08 PM EDT Resulting Agency Comment Spec In Lab Alejo Garnett MD HEMATOLOGY ORDERABLES Performing Organization Address City/State/[place] [address] (ABNORMAL) Hemogram (03/17/2022 11:44 AM EDT) Analysis Performed At Patho logist Time Signature WBC 6.8 4.0 - 9.5 [facility] x10(3)/[facility] LABORATORY RBC 3.24 (L) 4.58 - [facility] 5.54 [facility] x10(6)/[facility] LABORATORY Hemoglobin 9.4 (L) 13.7 - [place] M[place] 16.5 g/dL [facility] Hematocrit 30.7 (L) 40.5 - [facility] 48.5 % [facility] MCV 94.8 (H) 82.9 - [place] 93.1 [facility] LABORATORY MCH 29.0 27.5 - [place] 32.1 [facility] LABORATORY MCHC 30.6 (L) 32.0 - [place] 35.7 g/dL [facility] Platelets 180 145 - 357 [facility] x10(3)/[facility] LABORATORY RDWSD 49.7 (H) 36.0 - [facility] 45.0 [facility] LABORATORY RDWCV 14.5 (H) 11.4 - [facility] 13.8 % [facility] MPV 8.8 7.6 - 12.9 [facility] LABORATORY nRBC % Auto 0.0 % [facility] nRBC Abs Auto 0.000 0.000 - [facility] MELI 0.000 [facility] x10(3)/[facility] LABORATORY Specimen Anatomical Collection Method Collection Time Receive d Time (Source) Location / / Volume Laterality Blood 03/17/2022 11:44 03/17/2022 AM EDT 12:08 PM EDT Resulting Agency Comment Spec In Lab Alejo Garnett MD HEMATOLOGY ORDERABLES Performing Organization Address City/State/[place] [address] (ABNORMAL) Reticulocyte Count (03/17/2022 11:44 AM EDT) [facility] gist Method Time Signature Retic Ct % 2.1 0.7 - 2.6 [facility] % [facility] Retic Ct Abs 0.070 0.030 - [place] C[place] 0.120 [facility] x10(6)/[facility] LABORATORY Immature Retic% 22.5 (H) 0.0 - [place] 15.6 % [facility] Reticulated Hgb 25.9 (L) 31.3 - [facility] 40.2 [facility] LABORATORY Specimen Anatomical Collection Method Collection Time Receive d Time (Source) Location / / Volume Laterality Blood 03/17/2022 11:44 03/17/2022 AM EDT 12:08 PM EDT Resulting Agency Comment Spec In Lab Alejo Garnett MD HEMATOLOGY ORDERABLES Performing Organization Address City/State/[place] [address] (ABNORMAL) Comprehensive metabolic panel (non-fasting) (03/17/2022 11:44 AM EDT) P athologist Signature Glucose Lvl 116 65 - 199 [facility] mg/dL [facility] Comment: Diabetes: >=200 mg/dL plus symp toms BUN 29 (H) 10 - 20 mg/dL [facility] Creatinine 3.16 (H) 0.80 - 1.50 mg/dL [facility] Sodium 139 135 - 145 mmol/L [facility] Potassium 4.9 3.5 - 5.0 mmol/L [facility] Comment: Please note: ??Patients with WBC >100,00 0 may have falsely elevated Potassium levels. ??For accurate Potassium quantif ication in these patients send serum separator tube (gold top) for subsequent determinations. ??Contact the Clinical Chemistry Laboratory if there are any qu estions. Chloride 108 (H) 98 - 107 mmol/L [facility] CO2 21 (L) 22 - 31 mmol/L [facility] Anion Gap 10 5 - 15 mmol/L [facility] Calcium 8.8 8.5 - 10.5 mg/dL [facility] Total Protein 6.9 6.1 - 8.0 g/dL [facility] Albumin 3.2 3.2 - 5.2 g/dL [facility] AST 16 0 - 39 unit/L [facility] ALT 15 0 - 55 unit/L [facility] Alk Phos 131 (H) 40 - 130 unit/L [facility] Total Bilirubin 0.2 0.2 - 1.3 mg/dL [facility] Estimated GFR 21 (L) >=60 mL/min/1.73 m?? [facility] Comment: This patient's estimated GFR was [...] Organization Address City/State/[place] [address] Cholesterol, total (03/17/2022 11:44 AM EDT) athologist Signature Chol, Total 91 mg/dL [facility] Comment: Lower Risk: <200 mg/dL Average Risk: 200-239 mg/dL Higher Risk: >ep=168 mg/dL Lipid Interpretation See Note [facility] Comment: Lipid management should be guided by a p atient? s ASCVD risk, goals and preferences. ACC/AHA Guidelines recommend high intens ity statin if clinical ASCVD or LDL greater than or equal to 190 mg/dL. http://[email or web address]/RCZ-UJX-Skmryrofi Adults aged 40-75 with LDL 70-189 mg/dL should have their 10 year ASCVD risk estimated with the ACC/AHA ASCVD risk es timator http://tools.acc.org/VPJFB-Btko-Bdfeunvq r/ Statin should be discussed if risk [...] Organization Address City/State/ZIP Code Phon e Number [address] Magnesium (03/17/2022 11:44 AM EDT) P athologist Signature Magnesium 0.71 0.69 - 1.07 [place] mmol/L [facility] Specimen Anatomical Collection Method Collection Time Receive d Time (Source) Location / / Volume Laterality Blood 03/17/2022 11:44 03/17/2022 AM EDT 12:08 PM EDT Resulting Agency Comment Spec In Lab Alejo Garnett MD CHEMISTRY ORDERABLES Performing Organization Address City/[facility]/ZIP Code Phon e Number [address] Phosphorus (03/17/2022 11:44 AM EDT) P athologist Signature Phosphorus 3.4 2.5 - 4.5 [place] mg/dL [facility] Specimen Anatomical Collection Method Collection Time Receive d Time (Source) Location / / Volume Laterality Blood 03/17/2022 11:44 03/17/2022 AM EDT 12:08 PM EDT Resulting Agency Comment Spec In Lab Alejo Garnett MD CHEMISTRY ORDERABLES Performing Organization Address City/[facility]/[place] [address] Uric acid (03/17/2022 11:44 AM EDT) P athologist Signature Uric Acid 8.1 3.5 - 8.5 [place] mg/dL [facility] Specimen Anatomical Collection Method Collection Time Receive d Time (Source) Location / / Volume Laterality Blood 03/17/2022 11:44 03/17/2022 AM EDT 12:08 PM EDT Resulting Agency Comment Spec In Lab Alejo Garnett MD CHEMISTRY ORDERABLES Performing Organization Address City/State/[place] [address] Tacrolimus level (03/17/2022 11:44 AM EDT) P athologist Signature Tacrolimus Lvl 4.4 ng/mL [facility] Comment: Trough therapeutic range is [...] Organization Address City/State/[place] [address] documented in this encounter Visit Diagnoses Diagnosis Left chronic serous otitis media Simple or unspecified chronic serous beth tis media 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
--- OUTSIDE RECORDS SUMMARY | 2022-05-24 10:46 | XMS_ITS | Encounter Summary ---
:1955 Author Organization [facility] [address] Care Team Providers Name Role Phone Voiletta Sanford MD Primary Care Provider Reason for Visit Reason Onset Date Comments Medication Refill 03/17/2022 Encounter Details Date Type Department Care Team Description 03/17/2022 Refill Solid Organ Transplant at Alejo Kearney MD [facility] Giovana tyler [place] [address] [place] [address] [phone] (Wo rk) Social History Tobacco Use Types [...] Visit Otolaryngology Ricardo Panda PA [facility] [address] [place], [place] [address] (Wo rk) 06/02/2022 Infusion Hematology and Oncology 06/16/2022 Infusion Hematology and Oncology 06/21/2022 Office Visit Neurology Tyler Rojas MD [facility] er Neurology [place], [place] [phone] (Wo rk) 06/30/2022 Infusion Hematology and Oncology 07/14/2022 Infusion Hematology and Oncology 07/28/2022 Infusion Hematology and Oncology 08/11/2022 Infusion Hematology and Oncology 11/04/2022 Office Visit Rheumatology Dante Freedman PA [facility] ER RHEUMATOLOGY [place], [place] [address] (Wo rk) documented as of this encounter Visit Diagnoses Not on filedocumented in this encounter Care Teams Stripper And Opaquer Apprentice Relationship Specialty Start Date End Date Violetta Sanford MD PCP - General 04/02/14 [facility] ALONDRA [address]ID [address] [place] [address] documented as of this encounter
--- OUTSIDE RECORDS SUMMARY | 2022-05-24 10:46 | XMS_ITS | Encounter Summary ---
:1955 Author Organization [facility] [place] [address] Care Team Providers Name Role Phone Violetta Sanford MD Primary Care Provider Encounter Details Date Type Department Care Team Description 03/05/2022 External Results Solid Organ Transpla nt at [facility] [place] [address] Social History Tobacco Use Types Packs/Day [...] 05/26/2022 Office Visit Otolaryngology Ricardo Panda PA [facility] er [address] [place] [address] (Wo rk) 06/02/2022 Infusion Hematology and Oncology 06/16/2022 Infusion Hematology and Oncology 06/21/2022 Office Visit Neurology Tyler Rojas MD [facility] Dr Sofi [place] [phone] (Wo rk) 06/30/2022 Infusion Hematology and Oncology 07/14/2022 Infusion Hematology and Oncology 07/28/2022 Infusion Hematology and Oncology 08/11/2022 Infusion Hematology and Oncology 11/04/2022 Office Visit Rheumatology Dante Freedman PA [facility] RHEUMATOLOGY [place] [address] (Wo rk) documented as of this encounter Procedures Procedure Name Priority Date/Time Associated Diagnosis Comme nts EXTERNAL LAB RESULTS Routine 02/24/2022 Results for this procedure are i n the results section . EXTERNAL LAB RESULTS Routine 02/24/2022 Results for this procedure are i n the results section . documented in this encounter Results External Lab Results (02/24/2022) Narrative This result has an attachment that is no t available. Historical Provider MD CHEMISTRY ORDERABLES External Lab Results (02/24/2022) Narrative This result has an attachment that is no t available. Historical Provider MD CHEMISTRY ORDERABLES documented in this encounter Visit Diagnoses Not on filedocumented in this encounter Care Teams Technical Operations Vice President Relationship Specialty Start Date End Date Violetta Sanford MD PCP - General 04/02/14 [address] [place] [address] documented as of this encounter
--- OUTSIDE RECORDS SUMMARY | 2022-05-24 10:46 | XMS_ITS | Encounter Summary ---
:1955 Author Organization [facility] [address] Care Team Providers Name Role Phone Violetta Sanford MD Primary Care Provider Reason for Visit Reason Onset Date Comments Labs Only 03/24/2022 Lab Tracking Encounter Details Date Type Department Care Team Description 03/24/2022 Telephone Hematology/Oncology at [facility], Labs Only (Lab Tracking) [facility] Angelica Gilbert RN [address] [place] [phone] Social History Tobacco Use Types Packs/Day [...] this encounter Miscellaneous Notes Telephone Encounter - Angelica Malhotra RN - 03/24/2022 12:00 PM EDT LAB TRACKING Leroy Torres [id number] 1955 ?? DIAGNOSIS: Anemia d/t CKD stage IV, h/o kidney transplant ?? LABS: CBC every 4 weeks as of 05/27/21 ?? MEDICATIONS: Aranesp 300 mcg every 2 weeks if HGB <12 as of 05/27/21 Venofer x 3 weeks last given 12/16/21 ASSESSMENT/PLAN: Labs sent to Dr Baez for review. Pt received aranesp today. Labs again in 1 month, 04/21, he is seeing the provider that day as well. Latest Reference Range & Units 03/17/22 11:44 WBC 4.0 - 9.5 x10(3)/mcL 6.8 RBC 4.58 - 5.54 x10(6)/mcL 3.24 (L) [...] Basophils Abs 0.0 - 0.1 x10(3)/mcL 0.0 (L): Data is abnormally low (H): Data is abnormally high documented in this encounter Plan of Treatment Upcoming Encounters Date Type Specialty Care Team Description 05/26/2022 Office Visit Otolaryngology Ricardo Panda PA [facility] Dr [place], [place] [address] (Wo rk) 06/02/2022 Infusion Hematology and Oncology 06/16/2022 Infusion Hematology and Oncology 06/21/2022 Office Visit Neurology Tyler Rojas MD [facility] Neurology [place], [place] [phone] (Wo rk) 06/30/2022 Infusion Hematology and Oncology 07/14/2022 Infusion Hematology and Oncology 07/28/2022 Infusion Hematology and Oncology 08/11/2022 Infusion Hematology and Oncology 11/04/2022 Office Visit Rheumatology Dante Freedman PA [facility] RHEUMATOLOGY [place], [place] [address] (Wo rk) documented as of this encounter Visit Diagnoses Not on filedocumented in this encounter Care Teams Deblocker Relationship Specialty Start Date End Date Violetta Sanford MD PCP - General 04/02/14 [facility] [address] [place] [address] documented as of this encounter
--- OUTSIDE RECORDS SUMMARY | 2022-05-24 10:46 | XMS_ITS | Encounter Summary ---
:1955 Author Organization [facility] [place] [address] Care Team Providers Name Role Phone Violetta Sanford MD Primary Care Provider Encounter Details Date Type Department Care Team Description 03/10/2022 Orders Only Hematology/Oncology at [facility], Margaret James, Anemia of chronic [facility] SUPPLIER QUALITY renal failure, stage 4 [address] [facility] (severe) [place] [address] HEMATOLOGY/ONCOLOG [phone] Y DEPT. [place], [place] [address] Social History Tobacco Use Types [...] 05/26/2022 Office Visit Otolaryngology Ricardo Panda PA [facility] Dr [place], [place] [address] (Wo rk) 06/02/2022 Infusion Hematology and Oncology 06/16/2022 Infusion Hematology and Oncology 06/21/2022 Office Visit Neurology Tyler Rojas MD [facility] er Neurology [place], [place] [phone] (Wo rk) 06/30/2022 Infusion Hematology and Oncology 07/14/2022 Infusion Hematology and Oncology 07/28/2022 Infusion Hematology and Oncology 08/11/2022 Infusion Hematology and Oncology 11/04/2022 Office Visit Rheumatology Dante Freedman PA [facility] ER RHEUMATOLOGY [place], [place] [address] (Wo rk) Scheduled Orders Name Type Priority Associated Diagnoses Order S chedule CBC (with Diff) Lab Routine Anemia of chronic renal E xpected: 03/17/2022, failure, stage 4 (severe) Ex chan: 09/16/2022 documented as of this encounter Visit Diagnoses Diagnosis Anemia of chronic renal failure, stage 4 (severe) documented in this encounter Care Teams Bulb Farmworker Relationship Specialty Start Date End Date Violetta Sanford MD PCP - General 04/02/14 [address] [place] [address] documented as of this encounter
--- OUTSIDE RECORDS SUMMARY | 2022-05-24 10:46 | XMS_ITS | Encounter Summary ---
:1955 Author Organization [facility] [place] [address] Care Team Providers Name Role Phone Violetta Sanford MD Primary Care Provider Reason for Visit Reason Comments Injections Aranesp Treatment/Therapy Plan Authorization (Routine) - Authorized Specialty Diagnoses / Procedures Referred By Contact Refer red To Contact Hematology and Diagnoses CKD (chronic kidney disease) stage 4, GFR 15-29 ml/min Nicky Baez Hem Onc Office Oncology Procedures ALFREDA Ramirez MD [address] [place] [address] HEMATOLOGY/ONCOLOGY [phone] [place] [address] Referral ID Status Reason Start Date Expiration Date Visits V isits Requested Authorized [id number] Authorized 10/08/2020 06/23/2022 99 99 Encounter Details Date Type Department Care Team Description 03/10/2022 Infusion Hematology Oncology at [facility] of chronic renal [facility] failure, stage 4 (severe) [address] [place] [phone] Social History Tobacco Use Types [...] Sign Reading Time Taken Comments Blood Pressure 156/61 03/10/2022 11:40 AM EDT Pulse 73 03/10/2022 11:40 AM EDT Temperature 36.8 ??C (98.2 ??F) 03/10/2022 11:40 AM EDT Respiratory Rate 18 03/10/2022 11:40 AM EDT Oxygen Saturation 99% 03/10/2022 11:40 AM EDT Inhaled Oxygen - - Concentration Weight 127.9 kg (282 lb) 03/10/2022 11:40 Patient repor t AM EDT weight. Height 193 cm (6' 4) 03/10/2022 11:40 AM EDT Body Mass Index 34.33 03/10/2022 11:40 AM EDT documented in this encounter Patient Instructions Patient InstructionsWaLindsay nayak RN - 03/10/2022 1:00 PM EDT Please have your CBC drawn next week (03/17/22) at [facility] when you are there for Transplant follow up. documented in this encounter Progress Notes Lindsay Lerma RN - 03/10/2022 1:00 PM EDT .INFUSION THERAPY ADMINISTRATION NOTES DIAGNOSIS: Iron Deficiency/CKD REASON FOR VISIT: Aranesp SUBJECTIVE Reuben offers no complaints. OBJECTIVE LAB DATA: From 02/24/22: WBC 6.52, HGB 9.9, HCT 32.0, PLT 191, ANC 3.83 Pre administration: Medication orders independently verified for drug name, route, and dosage per patient's height, weight and BSA by Lindsay Lerma, SHEILA and [facility]. REACTIONS (DESCRIPTION, TIME, INTERVENTION AND EFFECTIVENESS) none ASSESSMENT Reuben was awake, alert and tolerated treatment well. Aranesp given in EDWIN. PLAN Return to clinic in 2 weeks. documented in this encounter Plan of Treatment Upcoming Encounters Date Type Specialty Care Team Description 05/26/2022 Office Visit Otolaryngology Ricardo Panda PA [facility] Dr [place], [place] [address] (Wo rk) 06/02/2022 Infusion Hematology and Oncology 06/16/2022 Infusion Hematology and Oncology 06/21/2022 Office Visit Neurology Tyler Rojas MD [facility] Neurology [place], [place] [phone] (Wo rk) 06/30/2022 Infusion Hematology and Oncology 07/14/2022 Infusion Hematology and Oncology 07/28/2022 Infusion Hematology and Oncology 08/11/2022 Infusion Hematology and Oncology 11/04/2022 Office Visit Rheumatology Dante Freedman PA [facility] RHEUMATOLOGY [place], [place] [address] (Wo rk) documented as of this encounter Visit Diagnoses Diagnosis Anemia of chronic renal failure, stage 4 (severe) documented in this encounter Administered Medications Inactive Administered Medications - up to 3 most recent administrations Medication Order MAR Action Action Date Dose Rate Site darbepoetin cristy-polysorbate Given 03/10/2022 12:17 PM 300 mcg Right Arm (Aranesp) (300 mcg/0.6 mL) EDT injection 300 mcg 300 mcg, Subcutaneous, ONCE, 1 dose, On Tue03/10/22 at 1215, Hold parameters for MDS and chemotherapy-induced anemia: Hemoglobin greater than or equal to 10 gm/dL Hematocrit greater than or equal to 30% Hold parameters for CKD: Hemoglobin greater than or equal to 12 gm/dL Hematocrit greater than or equal to 36%, Routine, What is the indication of use? Chronic Kidney Disease (CKD) documented in this encounter Care Teams Coal Washer Tender Relationship Specialty Start Date End Date Violetta Sanford MD PCP - General 04/02/14 [address] [place] [address] documented as of this encounter
--- OUTSIDE RECORDS SUMMARY | 2022-05-24 10:46 | XMS_ITS | Encounter Summary ---
:1955 Author Organization [facility] [place] [address] Care Team Providers Name Role Phone Violetta Sanford MD Primary Care Provider Reason for Visit Reason Comments Injections Aranesp Treatment/Therapy Plan Authorization (Routine) - Authorized Specialty Diagnoses / Procedures Referred By Contact Refer red To Contact Hematology and Diagnoses CKD (chronic kidney disease) stage 4, GFR 15-29 ml/min Nicky Baez Hem Onc Office Oncology Procedures ALFREDA Ramirez MD [address] [place] [address] HEMATOLOGY/ONCOLOGY [phone] [place] [address] Referral ID Status Reason Start Date Expiration Date Visits V isits Requested Authorized [id number] Authorized 10/08/2020 06/23/2022 99 99 Encounter Details Date Type Department Care Team Description 03/24/2022 Infusion Hematology Oncology at [facility] of chronic renal [facility] failure, stage 4 (severe) [address] [place] [phone] Social History Tobacco Use Types [...] Sign Reading Time Taken Comments Blood Pressure 149/51 03/24/2022 11:58 AM EDT Pulse 65 03/24/2022 11:58 AM EDT Temperature 36.7 ??C (98.1 ??F) 03/24/2022 11:58 AM EDT Respiratory Rate 20 03/24/2022 11:58 AM EDT Oxygen Saturation 99% 03/24/2022 11:58 AM EDT Inhaled Oxygen Concentration - - Weight - - Height - - Body Mass Index - - documented in this encounter Patient Instructions Patient InstructionsJumana Saab RN - 03/24/2022 12:00 PM EDT Your next lab appointment will be on April 21 at 10:30am prior to your appointment with Dr. Baez at 11:30. documented in this encounter Progress Notes Jumana Saab RN - 03/24/2022 12:00 PM EDT .INFUSION THERAPY ADMINISTRATION NOTES [...] and BSA by Jumana Saab RN and [facility]. REACTIONS (DESCRIPTION, TIME, INTERVENTION AND EFFECTIVENESS) none ASSESSMENT Reuben was awake, alert and tolerated treatment well. Aranesp given in EDWIN. PLAN Return to clinic in 2 weeks. documented in this encounter Plan of Treatment Upcoming Encounters Date Type Specialty Care Team Description 05/26/2022 Office Visit Otolaryngology Ricardo Panda PA [facility] Dr [place], [place] [address] (Wo rk) 06/02/2022 Infusion Hematology and Oncology 06/16/2022 Infusion Hematology and Oncology 06/21/2022 Office Visit Neurology Tyler Rojas MD [facility] Neurology [place], [place] [phone] (Wo rk) 06/30/2022 Infusion Hematology and Oncology 07/14/2022 Infusion Hematology and Oncology 07/28/2022 Infusion Hematology and Oncology 08/11/2022 Infusion Hematology and Oncology 11/04/2022 Office Visit Rheumatology Dante Freedman PA [facility] RHEUMATOLOGY [place], [place] [address] (Wo rk) documented as of this encounter Visit Diagnoses Diagnosis Anemia of chronic renal failure, stage 4 (severe) documented in this encounter Administered Medications Inactive Administered Medications - up to 3 most recent administrations Medication Order MAR Action Action Date Dose Rate Site darbepoetin cristy-polysorbate Given 03/24/2022 12:11 PM 300 mcg Right Arm (Aranesp) (300 mcg/0.6 mL) EDT injection 300 mcg 300 mcg, Subcutaneous, ONCE, 1 dose, On Tue03/24/22 at 1215, Hold parameters for MDS and chemotherapy-induced anemia: Hemoglobin greater than or equal to 10 gm/dL Hematocrit greater than or equal to 30% Hold parameters for CKD: Hemoglobin greater than or equal to 12 gm/dL Hematocrit greater than or equal to 36%, Routine, What is the indication of use? Chronic Kidney Disease (CKD) documented in this encounter Care Teams Mva Reactor Operator Head Relationship Specialty Start Date End Date Violetta Sanford MD PCP - General 04/02/14 [address] [place] [address] documented as of this encounter
--- OUTSIDE RECORDS SUMMARY | 2022-05-24 10:46 | XMS_ITS | Encounter Summary ---
:1955 Author Organization [place] [address] Care Team Providers Name Role Phone Violetta Sanford MD Primary Care Provider Encounter Details Date Type Department Care Team Description 03/04/2022 Refill Solid Organ Transpla nt at [facility] [place] [phone] Social History Tobacco Use Types Packs/Day [...] Telephone Encounter - Aria Khan RN - 03/09/2022 8:37 AM EDT I called Reuben again to follow up. He reports he is unaware of an allergy to Cipro or Levofloxican. He is willing to try the medicationfor his UTI. He confirmed his local pharmacy is [facility] in [place]. Telephone Encounter - Aria Khan RN - 03/04/2022 2:18 PM EDT Received urine culture results from 02/24 which indicated a UTI with need of treatment. Per Taj Lloyd BIOLOGICAL INSPECTOR: 1. Cipro 500 mg daily X 10 days 2. Repeat urine culture day 11 I left a message for the pt to discuss. Pt has an allergy to Levofloxican and need to determine if he is tolerate of Cipro. documented in this encounter Plan of Treatment Upcoming Encounters Date Type Specialty Care Team Description 05/26/2022 Office Visit Otolaryngology Ricardo Panda PA [facility] Dr [place], [place] [address] (Wo rk) 06/02/2022 Infusion Hematology and Oncology 06/16/2022 Infusion Hematology and Oncology 06/21/2022 Office Visit Neurology Tyler Rojas MD [facility] Neurology [place], [place] [phone] (Wo rk) 06/30/2022 Infusion Hematology and Oncology 07/14/2022 Infusion Hematology and Oncology 07/28/2022 Infusion Hematology and Oncology 08/11/2022 Infusion Hematology and Oncology 11/04/2022 Office Visit Rheumatology Dante Freedman PA [facility] RHEUMATOLOGY [place], [place] [address] (Wo rk) documented as of this encounter Visit Diagnoses Not on filedocumented in this encounter Care Teams Director Of Advertising Sales Relationship Specialty Start Date End Date Violetta Sanford MD PCP - General 04/02/14 [facility] [address] [place] [address] documented as of this encounter
--- OUTSIDE RECORDS SUMMARY | 2022-05-24 10:46 | XMS_ITS | Encounter Summary ---
:1955 Author Organization [facility] [place] [address] Care Team Providers Name Role Phone Violetta Sanford MD Primary Care Provider Reason for Visit Reason Onset Date Comments Labs Only 02/10/2022 Lab Tracking Encounter Details Date Type Department Care Team Description 02/10/2022 Telephone Hematology/Oncology at [facility], Labs Only (Lab Tracking) [facility] Angelica Gilbert RN [address] [place] [phone] Social History Tobacco Use Types Packs/Day [...] Telephone Encounter - Angelica Malhotra RN - 02/10/2022 11:51 AM EDT LAB TRACKING Leroy Torres [id number] 1955 ?? DIAGNOSIS: Anemia d/t CKD stage IV, h/o kidney transplant ?? LABS: CBC every 4 weeks as of 05/27/21 ?? MEDICATIONS: Aranesp 300 mcg every 2 weeks if HGB <12 as of 05/27/21 Venofer x 3 weeks last given 12/16/21 ASSESSMENT/PLAN: Labs done 01/28 at [facility]. Pt received aranesp that day. Labs again 02/24. 01/12/22 00:00 01/28/22 00:00 WBC 6.82 (E) 6.64 (E) Hemoglobin 8.8 (E) 8.9 (E) Hematocrit 29.2 (E) 29.2 (E) Platelets 198 (E) 167 (E) Neutr Abs (ANC) 3.73 (E) 3.91 (E) (E): External lab result documented in this encounter Plan of Treatment Upcoming Encounters Date Type Specialty Care Team Description 05/26/2022 Office Visit Otolaryngology Ricardo Panda PA [facility] Dr [place], [place] [address] (Wo rk) 06/02/2022 Infusion Hematology and Oncology 06/16/2022 Infusion Hematology and Oncology 06/21/2022 Office Visit Neurology Tyler Rojas MD [facility] Neurology [place], [place] [phone] (Wo rk) 06/30/2022 Infusion Hematology and Oncology 07/14/2022 Infusion Hematology and Oncology 07/28/2022 Infusion Hematology and Oncology 08/11/2022 Infusion Hematology and Oncology 11/04/2022 Office Visit Rheumatology Dante Freedman PA [facility] RHEUMATOLOGY [place], [place] [address] (Wo rk) documented as of this encounter Procedures Procedure Name Priority Date/Time Associated Diagnosis Comme nts CBC (WITH DIFF) Routine 01/28/2022 Results for this procedure are in the resu lts section. documented in this encounter Results CBC (with Diff) (01/28/2022) athologist Signature WBC 6.64 Hemoglobin 8.9 Hematocrit 29.2 Platelets 167 Neutr Abs (ANC) 3.91 Specimen (Source) Anatomical Location Collection Method / Collectio n Time Received Time / Laterality Volume Blood Historical Provider MD HEMATOLOGY ORDERABLES documented in this encounter Visit Diagnoses Not on filedocumented in this encounter Care Teams Diamond Picker Relationship Specialty Start Date End Date Violetta Sanford MD PCP - General 04/02/14 [address] [place] [address] documented as of this encounter
--- OUTSIDE RECORDS SUMMARY | 2022-05-24 10:46 | XMS_ITS | Encounter Summary ---
:1955 Author Organization [facility] [place] [address] Care Team Providers Name Role Phone Violetta Sanford MD Primary Care Provider Encounter Details Date Type Department Care Team Description 02/04/2022 Telephone Otolaryngology at [facility] [place] [phone] Social History Tobacco Use Types Packs/Day Years [...] this encounter Miscellaneous Notes Telephone Encounter - Eulalia Rivera - 02/04/2022 11:31 AM EDT Angelica, Patient is scheduled to have surgery on 02/09/2022 and the packet has been mailed to the verified address on file. Follow up appointment is as follows: Follow up: 1 week with nurse, then 4-6 weeks Thank you!! documented in this encounter Plan of Treatment Upcoming Encounters Date Type Specialty Care Team Description 05/26/2022 Office Visit Otolaryngology Ricardo Panda PA [facility] er [address] [place], [place] [address] (Wo rk) 06/02/2022 Infusion Hematology and Oncology 06/16/2022 Infusion Hematology and Oncology 06/21/2022 Office Visit Neurology Tyler Rojas MD [facility] Neurology [place], [place] [phone] (Wo rk) 06/30/2022 Infusion Hematology and Oncology 07/14/2022 Infusion Hematology and Oncology 07/28/2022 Infusion Hematology and Oncology 08/11/2022 Infusion Hematology and Oncology 11/04/2022 Office Visit Rheumatology Dante Freedman PA [facility] RHEUMATOLOGY [place], [place] [address] (Wo rk) documented as of this encounter Visit Diagnoses Not on filedocumented in this encounter Care Teams Roll Tender Relationship Specialty Start Date End Date Violetta Sanford MD PCP - General 04/02/14 [address] [place] [address] documented as of this encounter
--- OUTSIDE RECORDS SUMMARY | 2022-05-24 10:46 | XMS_ITS | Encounter Summary ---
:1955 Author Organization [facility] [place] [address] Care Team Providers Name Role Phone Violetta Sanford MD Primary Care Provider Reason for Visit Reason Comments Injections aranesp Treatment/Therapy Plan Authorization (Routine) - Authorized Specialty Diagnoses / Procedures Referred By Contact Refer red To Contact Hematology and Diagnoses CKD (chronic kidney disease) stage 4, GFR 15-29 ml/min Nicky Baez Hem Onc Office Oncology Procedures ALFREDA Ramirez MD [address] [place] [address] HEMATOLOGY/ONCOLOGY [id number] [place] [address] Referral ID Status Reason Start Date Expiration Date Visits V isits Requested Authorized [id number] Authorized 10/08/2020 06/23/2022 99 99 Encounter Details Date Type Department Care Team Description 02/10/2022 Infusion Hematology Oncology at Located within [facility] of chronic renal [facility] failure, stage 4 (severe) [address] [place] [address] [phone] Social History Tobacco Use Types [...] Sign Reading Time Taken Comments Blood Pressure 156/55 02/10/2022 12:30 PM EDT Pulse 65 02/10/2022 12:30 PM EDT Temperature 36.7 ??C (98 ??F) 02/10/2022 12:30 PM EDT Respiratory Rate 18 02/10/2022 12:30 PM EDT Oxygen Saturation 99% 02/10/2022 12:30 PM EDT Inhaled Oxygen Concentration - - Weight 120.7 kg (266 lb) 02/10/2022 12:30 PM EDT Height 193 cm (6' 3.98) 02/10/2022 12:30 PM EDT Body Mass Index 32.39 02/10/2022 12:30 PM EDT documented in this encounter Progress Notes Jumana Saab RN - 02/10/2022 12:30 PM EDT INFUSION THERAPY ADMINISTRATION NOTES DIAGNOSIS: Iron Deficiency/CKD REASON FOR VISIT: Aranesp SUBJECTIVE Reuben offers no complaints. OBJECTIVE LAB DATA: completed at [facility] 01/28/22 WBC 6.64, HGB 8.9, HCT 29.2, PLT 167, ANC 3.91 Ferritin 135 Pre administration: Medication orders independently verified for drug name, route, and dosage per patient's height, weight and BSA by Jumana Saab, SHEILA and [facility]. REACTIONS (DESCRIPTION, TIME, INTERVENTION AND EFFECTIVENESS) none ASSESSMENT Reuben was awake, alert and tolerated treatment well. Aranesp given in [place]. PLAN Return to clinic in 2 weeks. documented in this encounter Plan of Treatment Upcoming Encounters Date Type Specialty Care Team Description 05/26/2022 Office Visit Otolaryngology Ricardo Panda PA [facility] [address] [place], [place] [address] (Wo rk) 06/02/2022 Infusion Hematology and Oncology 06/16/2022 Infusion Hematology and Oncology 06/21/2022 Office Visit Neurology Tyler Rojas MD [facility] er Neurology [place], [place] [phone] (Wo rk) 06/30/2022 Infusion Hematology and Oncology 07/14/2022 Infusion Hematology and Oncology 07/28/2022 Infusion Hematology and Oncology 08/11/2022 Infusion Hematology and Oncology 11/04/2022 Office Visit Rheumatology Dante Freedman PA [facility] RHEUMATOLOGY [place], [place] [address] (Wo rk) documented as of this encounter Visit Diagnoses Diagnosis Anemia of chronic renal failure, stage 4 (severe) documented in this encounter Administered Medications Inactive Administered Medications - up to 3 most recent administrations Medication Order MAR Action Action Date Dose Rate Site darbepoetin cristy-polysorbate Given 02/10/2022 12:58 PM 300 mcg Right Arm (Aranesp) (300 mcg/0.6 mL) EDT injection 300 mcg 300 mcg, Subcutaneous, ONCE, 1 dose, On Tue02/10/22 at 1245, Hold parameters for MDS and chemotherapy-induced anemia: Hemoglobin greater than or equal to 10 gm/dL Hematocrit greater than or equal to 30% Hold parameters for CKD: Hemoglobin greater than or equal to 12 gm/dL Hematocrit greater than or equal to 36%, Routine, What is the indication of use? Chronic Kidney Disease (CKD) documented in this encounter Care Teams Historic Preservationist Relationship Specialty Start Date End Date Violetta Sanford MD PCP - General 04/02/14 [address] [place] [address] documented as of this encounter
--- OUTSIDE RECORDS SUMMARY | 2022-05-24 10:46 | XMS_ITS | Encounter Summary ---
:1955 Author Organization [facility] [place] [address] Care Team Providers Name Role Phone Violetta Sanford MD Primary Care Provider Encounter Details Date Type Department Care Team Description 02/09/2022 Surgery Main Operating Room Arhcie Avila MD MY[facility]INGOTOMY, [facility] 2.[facility] [place] [address] [place] [address] [phone] Social History Tobacco Use Types Packs/Day Years [...] Sign Reading Time Taken Comments Blood Pressure 155/60 02/09/2022 6:22 AM EDT Pulse 70 02/09/2022 6:22 AM EDT Temperature 37.1 ??C (98.8 ??F) 02/09/2022 6:22 AM EDT Respiratory Rate 16 02/09/2022 6:22 AM EDT Oxygen Saturation 97% 02/09/2022 6:22 AM EDT Inhaled Oxygen Concentration - - [...] -You can reach the ENT clinic at [phone] for appointment questions. -The ENT triage nurse is available at [phone] -For urgent issues during evenings (5 PM - 7 AM) and weekends the ENT resident air traffic control supervisor can be reached through the main hospital serging machine operator automatic at [phone] Follow Up: You will need to follow [...] PM STJ INFUSION, ROOM Hematology Oncology at [facility] Arrive at: [facility] door at end of hallway [phone] 02/16/2022 3:00 PM Shira Ramírez APRN Gastroenterology at [facility] Arrive at: Hand Worker Area 02/24/2022 12:00 PM STJ INFUSION, ROOM Hematology Oncology at [facility] at end of hallway [phone] 03/10/2022 1:00 PM STJ INFUSION, ROOM Hematology Oncology at [facility] Ar[facility] at: [facility] door at end of hallway [phone] 03/17/2022 9:45 AM Keerthi Mckenzie AUD; AUDIOLOGY, [facility] Audiology at [facility] Arrive at: Hand Worker Area [phone] 03/17/2022 10:40 AM Iraj Scott MD Otolaryngology at [facility] Arrive at: Hand Worker Area [phone] 03/24/2022 12:00 PM STJ INFUSION, ROOM Hematology Oncology at [facility] Arrive at: [facility] door at end of hallway [phone] 04/07/2022 12:00 PM STJ INFUSION, ROOM Hematology Oncology at [facility] Arrive at: [facility] door at end of hallway [phone] 04/21/2022 11:30 AM Nicky Baez MD Hematology/Oncology at [facility] Arrive at: [facility] door at end of hallway [phone] 04/21/2022 12:00 PM STJ INFUSION, ROOM Hematology Oncology at [facility] Arrive at: [facility] door at end of hallway [phone] 06/21/2022 11:00 AM Shivam Rojas MD Neurology at [facility] Arrive at: Hand Worker Area [phone] documented in this encounter Medications at Time [...] Use to continuously 1 each 0 2 [place] Misc monitor blood glucose. Scan at least [...] 6 kit 3 01/13/2021 Day Sensor Kit Misc.(Non-Drug; Combo Route) route every 14 days. Use to continuously monitor blood glucose. Scan at least 5 times per day. DX: E11.65 darbepoetin cristy in Inject 300 mg as 0 polysorbat 10 mcg/0.4 directed as needed. mL Syringe cyanocobalamin, Take 100 mcg by mouth 0 Vitamin B-12, daily. (Vitamin B-12) 100 mcg Tablet Blood-Glucose Sensor [place] [facility]Non-Drug; 0 (Dexcom G6 Sensor) Combo Route) route. Device Sensor, portfolio strategist andtransmitter metoprolol succinate Take 1 tablet by mouth 90 tablet 1 04/2020 XL (Toprol-XL) 50 mg daily. Tablet Sustained Release 24 hr amLODIPine (Norvasc) Take 0.5 tablets by 90 tablet 3 2019 10 mg Tablet mouth daily. fluticasone INSTILL 2 SPRAYS INTO 0 09/06/2019 propionate (FLONASE) EACH NOSTRIL ONCE A 50 mcg/actuation DAY NEEDED [place], Suspension multivitamin with Take 1 tablet by [...] Devices by 4 each 0 12/02/2015 Supply [facility]Non-Drug; Combo MiscIndications: S/P Route) route daily. bilateral [...] NECK SURGERY INTERVAL H&P NOTE Name: Leroy Torres Age/Sex: 66 y.o. male Attending: Iraj Scott [...] PGY2 02/09/22 7:32 AM ENT Team Pager: [phone] documented in this encounter Miscellaneous Notes Op Note - Awa Frye MD - 02/09/2022 8:31 AM EDT [facility] Operative Note Patient Name: Leroy Torres : [id number] MR#: [id number] Case Date: 02/09/2022 Surgeon: Surgeon(s) and Role: [...] Visit Otolaryngology Ricardo Panda PA [facility] [address] [place], [place] [address] (Wo rk) 06/02/2022 Infusion Hematology and Oncology 06/16/2022 Infusion Hematology and Oncology 06/21/2022 Office Visit Neurology Tyler Rojas MD [facility] Neurology [place], [place] [phone] (Wo rk) 06/30/2022 Infusion Hematology and Oncology 07/14/2022 Infusion Hematology and Oncology 07/28/2022 Infusion Hematology and Oncology 08/11/2022 Infusion Hematology and Oncology 11/04/2022 Office Visit Rheumatology Dante Freedman PA [facility] RHEUMATOLOGY [place], [place] [address] (Wo rk) documented as of [...] Signature POC Glucose 102 65 - 199 [facility] mg/dL [facility] Comment: Supplemental ranges: <140 mg/dL before meals <180 mg/dL all other times of the day Specimen Anatomical Collection Method Collection Time Receive d Time (Source) Location / / Volume Laterality Blood 02/09/2022 9:26 AM 2 9:26 EDT AM EDT Iraj Scott MD POINT OF CARE TEST ORDERABLE S Performing Organization Address City/State/ZIP Code Phon e Number [address] Body Fluid Culture, Aerobic (02/09/2022 8:45 AM EDT) Component Value Ref Test Analysis Performed At [facility] gist Range Method Time Signature Body Fluid No growth [facility] Culture [facility]OR[facility]ORY Gram Stain Cytocentrifuge Gram Stain performed [facility] Neutrophils seen [place] No microorganisms seen. [facility]OR[facility]ORY Specimen Anatomical Collection Method Collection Time Receive d Time (Source) Location / / Volume Laterality Middle Ear Fluid 02/09/2022 8:45 AM 02/09 EDT 10:00 AM EDT Comment: Left middle ear fluid. Aerobic Resulting Agency Comment Spec In Lab Archie Avila MD MICROBIOLOGY - GENERAL ORDER STEPHANIE Performing Organization Address City/State/ZIP Code Phon e Number [address] Phosphorus (02/09/2022 6:43 AM EDT) athologist Signature Phosphorus 3.2 2.5 - 4.5 [facility] mg/dL [facility] Specimen Anatomical Collection Method Collection Time Receive d Time (Source) Location / / Volume Laterality Blood 02/09/2022 6:43 AM 2 7:04 EDT AM EDT Resulting Agency Comment Spec In Lab Iraj Scott MD CHEMISTRY ORDERABLES Performing Organization Address City/State/ZIP Code Phon e Number [address] (ABNORMAL) Magnesium (02/09/2022 6:43 AM EDT) athologist Signature Magnesium 0.67 (L) 0.69 - 1.07 [facility] mmol/L [facility] Specimen Anatomical Collection Method Collection Time Receive d Time (Source) Location / / Volume Laterality Blood 02/09/2022 6:43 AM 2 7:04 EDT AM EDT Resulting Agency Comment Spec In Lab Iraj Scott MD CHEMISTRY ORDERABLES Performing Organization Address City/[facility] [place] [address] (ABNORMAL) Basic Metabolic Panel (non-fasting) (02/09/2022 6:43 AM EDT) athologist Signature Glucose Lvl 103 65 - 199 [facility] mg/dL [facility] Comment: Diabetes: >=200 mg/dL plus symp toms BUN 31 (H) 10 - 20 mg/dL [facility] Creatinine 2.49 (H) 0.80 - 1.50 mg/dL [facility] Sodium 141 135 - 145 mmol/L [facility] Potassium 4.2 3.5 - 5.0 mmol/L [facility] Comment: Please note: ??Patients with WBC >100,00 0 may have falsely elevated Potassium levels. ??For accurate Potassium quantif ication in these patients send serum separator tube (gold top) for subsequent determinations. ??Contact the Clinical Chemistry Laboratory if there are any qu estions. Chloride 108 (H) 98 - 107 mmol/L [facility] CO2 22 22 - 31 mmol/L [facility] Anion Gap 11 5 - 15 mmol/L [facility] Calcium 8.4 (L) 8.5 - 10.5 mg/dL [facility] Estimated GFR 27 (L) >=60 mL/min/1.73 m?? [facility] Comment: This patient's estimated [...] Organization Address City/State/[place] [address] POCT Glucose (02/09/2022 6:26 AM EDT) P athologist Signature POC Glucose 110 65 - 199 [facility] mg/dL [facility] Comment: Supplemental ranges: <140 mg/dL before meals <180 mg/dL all other times of the day Specimen Anatomical Collection Method Collection Time Receive d Time (Source) Location / / Volume Laterality Blood 02/09/2022 6:26 AM 2 6:26 EDT AM EDT Iraj Scott MD POINT OF CARE TEST ORDERABLE S Performing Organization Address City/State/[place] [address] documented in this encounter Visit Diagnoses Diagnosis Chronic mucoid otitis media of left ear Simple or unspecified chronic mucoid beth tis media ETD (Eustachian tube dysfunction), left 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 Scheduled Medication Order 02/07/2022 02/08/2022 02/09/2022 acetaminophen (Tylenol) tablet 1,000 mg (COMPLETED) 625 (Given - Provider: Lroetta Carter RN) 1,000 mg, Oral, ONCE, 1 [...] Routine documented in this encounter Care Teams Creative Writing Teacher Relationship Specialty Start Date End Date Violetta Sanford MD PCP - General 04/02/14 [address] [place] [address] documented as of this encounter
--- OUTSIDE RECORDS SUMMARY | 2022-05-24 10:46 | XMS_ITS | Encounter Summary ---
:1955 Author Organization [facility] [address] Care Team Providers Name Role Phone Violetta Sanford MD Primary Care Provider Encounter Details Date Type Department Care Team Description 01/18/2022 External Results Solid Organ Transpla nt at [facility] [place] [address] Social History Tobacco Use Types Packs/Day [...] 05/26/2022 Office Visit Otolaryngology Ricardo Panda PA [facility] [place] [address] [place] [address] (Wo rk) 06/02/2022 Infusion Hematology and Oncology 06/16/2022 Infusion Hematology and Oncology 06/21/2022 Office Visit Neurology Tyler Rojas MD [facility] Dr [address] [place] [address] 6-[address]22 (Wo rk) 06/30/2022 Infusion Hematology and Oncology 07/14/2022 Infusion Hematology and Oncology 07/28/2022 Infusion Hematology and Oncology 08/11/2022 Infusion Hematology and Oncology 11/04/2022 Office Visit Rheumatology Dante Freedman PA [facility] RHEUMATOLOGY [place], [place] [address] (Wo rk) documented as of this encounter Procedures Procedure Name Priority Date/Time Associated Diagnosis Comme nts LAB SCAN Routine 01/12/2022 Results for thi s procedure are in the resu lts section. documented in this encounter Results Scan Doc: Lab (01/12/2022) Narrative This result has an attachment that is no t available. Historical Provider MD SANDOVAL MGR SCAN EXT ORDR/RSLT documented in this encounter Visit Diagnoses Not on filedocumented in this encounter Care Teams Kindergarten Assistant Relationship Specialty Start Date End Date Violetta Sanford MD PCP - General 04/02/14 [address] [place] [address] documented as of this encounter
--- OUTSIDE RECORDS SUMMARY | 2022-05-24 10:46 | XMS_ITS | Encounter Summary ---
:1955 Author Organization [facility] [place] [address] Care Team Providers Name Role Phone Violetta Sanford MD Primary Care Provider Encounter Details Date Type Department Care Team Description 01/27/2022 Office Visit Audiology at [facility] [place] Alejandra Barnes Mixed conductive and sensori neural hearing loss of left ear with restricted hearing of right ear; [facility] WENDI [place] Sensorineural hearing loss (SNHL) of rig ht ear with restricted hearing [place] [address] AUDIOLOGY DEPT [phone] [place], [place] [address] Social History Tobacco Use Types [...] documented as of this encounter Progress Notes Alejandra Barnes AUD - 01/27/2022 4:00 PM EDT AUDIOLOGY SECTION Name: Leroy Torres : 1955 Date/Time of Visit: 01/27/2022 at 4:00 PM Leroy Torres was seen for a hearing test as medically indicated with follow- up to Iraj Scott MD,in Otolaryngology. Please see audiogram (in procedures tab) and Dr. Scott' report for specifics regarding history, impressions, and recommendations. Antonio Dunham, [facility] Piecer [place] [phone] documented in this encounter Plan of Treatment Upcoming Encounters Date Type Specialty Care Team Description 05/26/2022 Office Visit Otolaryngology Ricardo Panda PA [facility] Dr [place], [place] [address] (Wo rk) 06/02/2022 Infusion Hematology and Oncology 06/16/2022 Infusion Hematology and Oncology 06/21/2022 Office Visit Neurology Tyler Rojas MD [facility] Neurology [place], [place] [phone] (Wo rk) 06/30/2022 Infusion Hematology and Oncology 07/14/2022 Infusion Hematology and Oncology 07/28/2022 Infusion Hematology and Oncology 08/11/2022 Infusion Hematology and Oncology 11/04/2022 Office Visit Rheumatology Dante Freedman PA [facility] RHEUMATOLOGY [place], [place] [address] (Wo rk) documented as of this encounter Procedures Procedure Name Priority Date/Time Associated Comments Diagnosis COMPREHENSIVE HEARING Routine 01/27/2022 4:03 PM Results for this TEST EDT procedure are i n the results section. documented in this encounter Results Comprehensive hearing test (01/27/2022 4:03 PM EDT) Specimen (Source) Anatomical Collection Method Collection Time Re ceived Time Location / / Volume Laterality 01/27/2022 4:03 PM EDT Narrative [facility] - 01/27/2022 4:03 PM EDT >Continue with appointment to Iraj Scott MD, as scheduled. NOTE: Ultimately, Dr. Scott came into the alanis to review results with patien t and continued ENT plan for left ear. Please refer to Dr. Scott' notes for further specifics. >Continue to monitor hearing as medicall y indicated by Dr. Scott. Procedure Note Unknown - 01/27/2022Formatting of this n ote might be different from the original. >Continue with appointment to Iraj Scott MD, as scheduled. NOTE: Ultimately, Dr. Scott came into the alanis to review results with patien t and continued ENT plan for left ear. Please refer to Dr. Scott' notes for further specifics. >Continue to monitor hearing as medicall y indicated by Dr. Scott. 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
--- OUTSIDE RECORDS SUMMARY | 2022-05-24 10:46 | XMS_ITS | Encounter Summary ---
:1955 Author Organization [facility] [place] [address] Care Team Providers Name Role Phone Violetta Sanford MD Primary Care Provider Reason for Visit Reason Onset Date Comments Pump/sensor 02/08/2022 Encounter Details Date Type Department Care Team Description 02/08/2022 Telephone Endocrinology at [facility] Leny Kohler Pump/[place] [phone] Social History Tobacco Use Types Packs/Day [...] this encounter Miscellaneous Notes Telephone Encounter - Leny Morales - 02/08/2022 7:59 AM EDT Documentation request received from [facility] [employer]. 01/21/22 office notes routed Confirmed 02/08 Fax number: [phone] documented in this encounter Plan of Treatment Upcoming Encounters Date Type Specialty Care Team Description 05/26/2022 Office Visit Otolaryngology Ricardo Panda PA [facility] [address] [place], [place] [address] (Wo rk) 06/02/2022 Infusion Hematology and Oncology 06/16/2022 Infusion Hematology and Oncology 06/21/2022 Office Visit Neurology Tyler Rojas MD [facility] Neurology [place], [place] [phone] (Wo rk) 06/30/2022 Infusion Hematology and Oncology 07/14/2022 Infusion Hematology and Oncology 07/28/2022 Infusion Hematology and Oncology 08/11/2022 Infusion Hematology and Oncology 11/04/2022 Office Visit Rheumatology Dante Freedman PA [facility] RHEUMATOLOGY [place], [place] [address] (Wo rk) documented as of this encounter Visit Diagnoses Not on filedocumented in this encounter Care Teams Turbine Engine Assembler Relationship Specialty Start Date End Date Violetta Sanford MD PCP - General 04/02/14 [facility] ALONDRA [address] [place] [address] documented as of this encounter
--- OUTSIDE RECORDS SUMMARY | 2022-05-24 10:46 | XMS_ITS | Encounter Summary ---
:1955 Author Organization [facility] Address [address] [place] [address] Care Team Providers Name Role Phone Violetta Sanford MD Primary Care Provider Encounter Details Date Type Department Care Team Description 01/21/2022 Office Visit Endocrinology at [facility] Donell Hernandez, Type 2 diabetes mellitus wit h hyperglycemia, with long-term current use of insulin; [facility] CKD (chronic kidney disease) stage 4, GF R 15-29 ml/min; [facility] S/P bilateral BKA (below kne e amputation); [place] [phone] [place] [address] History of renal transplant [phone] ENDOCRINOLOGY DEPT. [place], [place] [address] Social History Tobacco Use Types [...] Sign Reading Time Taken Comments Blood Pressure 150/62 01/21/2022 10:30 AM EDT Pulse 69 01/21/2022 10:30 AM EDT Temperature 36.8 ??C (98.2 ??F) 01/21/2022 10:30 AM EDT Respiratory Rate - - Oxygen Saturation 98% 01/21/2022 10:30 AM EDT Inhaled Oxygen Concentration - - Weight 124.3 kg (274 lb) 01/21/2022 10:30 AM EDT Height 194.3 cm (6' 4.5) 01/21/2022 10:30 AM EDT Body Mass Index 32.92 01/21/2022 10:30 AM EDT documented in this encounter Progress Notes Donell Hernandez MD - 01/21/2022 11:00 AM EDT Year of diagnosis: Regimen ____ oral agents only ____ basal insulin __x__ basal and meal insulin/pump Diagnosis codes 250.03 ___ Type 1 250.02 __x__Type 2 Glucose test strip brand: one touch Number of Tests prescribed per day ___ 2 ___ 3 _x__ 4 ___ 5-8 ___>8 Prescriber: johnny Hernandez MD _YESSENIA Aguirre _ Suki Lynn MD _ Angela Garnett MD _ Kimmy Herring MD Justification for more than 3 tests a day ____ prevent severe hypoglycemia ____ prevent severe hyperglycemia __x__ widely fluctuating blood sugars ____ overnight hypoglycemia Duration of need _x__ lifetime until ___/___/___ We are consulted by Dr Ibanez to evaluate and treat DM2 in the setting of renal transplant with somediminution in function, severe retinopathy that has been treated, bilateral bka R and morbid obesity. From Jun 2021 1) DM 2His gilberto suggests excellent control (GMI 6.8) and the pattern shows A TIR of 73 % (70-180). His HA1c is less useful due to frequent infusions of aranesp. No changes 2)CKD3 - continues on liraglutide at 1.2 mg a day with an eGFR of 22. 3) retinopathy - gets annual follow up 4) history of renal transplant- is immunocompromised- - slowly deteriorating renal function 5) bilateral BKA - not able to ambulate well at this point 6) prevention - has had triple vaccination against COVID and likely will need a 4th Interim history Severe ear infection - hospitalized overnight Had hyperglycemia from an iron infusions Kidney function is stable Occ itching, no nausea Weight is down 17 from last year Has new ankles on prosthesis Will be get dentures when coverage kicks in in Nov Regimen Basal levemir 50/45 bid victoza 1.2 Bolus 15 units per meal CF 1:4 Uses a sliding scale hbgm tir 70 % gmi 6.3 Hypo none Diet B plain donuts Sn L Egg salad sandwich Sn D Cabbage Kielbasa rice Sn Single serving chips Exercise Mowing large tract of land complications Eyes prior laser therapy Feet Bilateral BKA Kidneys + renal transplant , CKD3b now but stable autonomic: no gastroparesis bladder hypo unaware tachycardia cardiac no chest pain on exertion no shortness of breath at rest No history of stent cabg chf prevention: last eye exam: spring microalbumin :n/a last Cr: 2021 last lipid panel: 2021 regular floor waxer:no special shoes:no flu shot :yes COVID moderna x 4 pneumovax: 2011 prevnar 2014 acei yes Asa Yes statin yes NO shingles shot permitted by transplant team Medications 01/21/22 1039 Medication Sig Taking? guaiFENesin ER (Mucinex) 600 mg Tablet Extended Release 12hr Take 1,200 mg by mouth 2 times daily. Yes ipratropium-albuteroL (Duoneb) 0.5 mg-3 mg(2.5 mg base)/3 mL Solution for Nebulization Inhale into the lungs. Yes montelukast (Singulair) 10 mg Tablet Take 10 mg by mouth daily. Yes primidone (Mysoline) 50 mg Tablet Take 1 tablet by mouth 4 times daily. Yes CellCept 250 mg Capsule TAKE 2 CAPSULES BY MOUTH 2 TIMES DAILY Yes Prograf 0.5 mg Capsule TAKE 1 CAPSULE BY MOUTH NIGHTLY. Yes Prograf 1 mg Capsule TAKE 1 CAPSULE BY MOUTH DAILY Yes FreeStyle Gilberto 2 Sensor Kit 1 each by [facility].(Non-Drug; Combo Route) route every 14 days. Use to continuously monitor blood glucose. Scan at least 4 times per day. Yes FreeStyle Gilberto 2 [place] Misc Use to continuously monitor blood glucose. Scan at least 5 times per day. Yes umeclidinium-vilanteroL (Anoro Ellipta) 62.5-25 mcg/actuation Disk with Device Inhale into the lungsdaily. Yes insulin aspart U-100 (NovoLOG) Cartridge Inject 10-25 Units subcutaneously 2 times daily. Sliding scale Yes hydrALAZINE (Apresoline) 100 mg Tablet Take 1 tablet by mouth 3 times daily. Yes FreeStyle Gilberto 14 Day Sensor Kit 1 each by [facility].(Non-Drug; Combo Route) route every 14 days. Use tocontinuously monitor blood glucose. Scan at least 5 times per day. DX: E11.65 Yes darbepoetin cristy in polysorbat 10 mcg/0.4 mL Syringe Inject 300 mg as directed as needed. Yes cyanocobalamin, Vitamin B-12, (Vitamin B-12) 100 mcg Tablet Take 100 mcg by mouth daily. Yes metoprolol succinate XL (Toprol-XL) 50 mg Tablet Sustained Release 24 hr Take 1 tablet by mouth daily. Yes amLODIPine (Norvasc) 10 mg Tablet Take 0.5 tablets by mouth daily. Yes fluticasone propionate (FLONASE) 50 mcg/actuation [place], Suspension INSTILL 2 SPRAYS INTO EACH NOSTRIL ONCE A DAY NEEDED Yes albuterol (PROVENTIL) 2.5 mg /3 mL (0.083 %) Solution for Nebulization Take 3 mLs by nebulization every 4 hours as needed for Wheezing. Yes multivitamin with minerals Tablet Take 1 tablet by mouth Daily. Yes LEVEMIR FLEXTOUCH U-100 INSULN Insulin Pen Inject 50-80 Units subcutaneously 2 times daily. ICD 10 Code: E11.40 Yes cholecalciferol, Vitamin D3, 2,000 unit Tablet Take 1 tablet by mouth daily. Yes liraglutide (VICTOZA 3-FAZAL) 0.6 mg/0.1 mL (18 mg/3 mL) Pen Injector Inject 1.2 mg subcutaneously daily. Yes insulin needles, disposable, 29 gauge x 1/2 Needle 1 Device by [facility].(Non-Drug; Combo Route) route 3times daily. Yes atorvastatin (LIPITOR) 20 mg Tablet Take 1 tablet by mouth daily. Yes folic acid (FOLVITE) 1 mg Tablet Take 2 tablets by mouth daily. Yes omeprazole (PRILOSEC) 40 mg Capsule, Delayed Release(E.C.) Take 1 capsule by mouth daily. Yes acetaminophen (TYLENOL) 325 mg Tablet Take 650 mg by mouth every 4 hours as needed for Pain. Reported on 08/06/2016 Yes Miscellaneous Medical Supply [facility] 4 Devices by [facility].(Non-Drug; Combo Route) route daily. Rubber sheath for leg prosthesis (2 pairs) Yes BD INSULIN PEN NEEDLE UF ORIG 29 gauge x 1/2 Needle Yes aspirin 81 mg EC tablet Take 81 mg by mouth daily. Yes ciprofloxacin-dexAMETHasone (Ciprodex) 0.3-0.1 % Drops, Suspension Place 4 drops into the left ear 2times daily. Please use for 10 days. Patient not taking: No sig reported Blood-Glucose Sensor (Dexcom G6 Sensor) Device by [facility].(Non-Drug; Combo Route) route. Sensor, matchbook assembler andtransmitter Appearance: looks well BP 150/62 Pulse 69 Temp 36.8 ??C (98.2 ??F) Ht 194.3 cm (6' 4.5) Wt 124.3 kg (274 lb) SpO2 98% BMI 32.92 kg/m?? Wt is down 7 lbs from last year eyes: no retinopathy seen by green light feet: bilateral bka Labs pending Due to use of arenesp, his gmi is a better meaasure of glucose control than an HA1c His gilberto suggests excellent control (GMI 6.8) and the pattern shows A TIR of 73 % (70-180). His HA1c is less useful due to frequent infusions of aranesp. No changes 1) DM2 - well controlled at present with good postmeal control 2)CKD3 - stable x 6 mo at an eGFR around 20. We can continue low dose liraglutide 3) retinopathy - gets annual follow up 4) history of renal transplant- is immunocompromised- - slowly deteriorating renal function 5) bilateral BKA - able to ambulate better with new ankle prostheses 6) prevention - has had 4x vaccination against COVID This was a 40 min visit in total time for precharting, interview and counseling, review of labs as above, ordering labs and charting RTC 6 mo documented in this encounter Plan of Treatment Upcoming Encounters Date Type Specialty Care Team Description 05/26/2022 Office Visit Otolaryngology Ricardo Panda PA [facility] [address] [place], [place] [address] (Wo rk) 06/02/2022 Infusion Hematology and Oncology 06/16/2022 Infusion Hematology and Oncology 06/21/2022 Office Visit Neurology Tyler Rojas MD [facility] Neurology [place], [place] [phone] (Wo rk) 06/30/2022 Infusion Hematology and Oncology 07/14/2022 Infusion Hematology and Oncology 07/28/2022 Infusion Hematology and Oncology 08/11/2022 Infusion Hematology and Oncology 11/04/2022 Office Visit Rheumatology Dante Freedman PA [facility] RHEUMATOLOGY [place], [place] [address] (Wo rk) Scheduled Orders Name Type Priority Associated Diagnoses Order S chedule Hemoglobin A1c Lab Routine Type 2 diabetes mellitus E xpected: 01/21/2022 with hyperglycemia, with (Ap proximate), long-term current use of Exp ires: 07/23/2022 insulin TSH Lab Routine Type 2 diabetes mellitus Exp ected: 01/21/2022 with hyperglycemia, with (Ap proximate), long-term current use of Exp ires: 07/23/2022 insulin T4, free Lab Routine Type 2 diabetes mellitus Exp ected: 01/21/2022 with hyperglycemia, with (Ap proximate), long-term current use of Exp ires: 07/23/2022 insulin Hemoglobin A1c Lab Routine Type 2 diabetes mellitus E xpected: 05/12/2022 with hyperglycemia, with (Ap proximate), long-term current use of Exp ires: 01/22/2023 insulin Creatinine Lab Routine Type 2 diabetes mellitus Exp ected: 05/12/2022 with hyperglycemia, with (Ap proximate), long-term current use of Exp ires: 01/22/2023 insulin LDL Cholesterol, Direct Lab Routine Type 2 diabetes m bethitus Expected: 05/12/2022 with hyperglycemia, with (Ap proximate), long-term current use of Exp ires: 01/22/2023 insulin T4, free Lab Routine Type 2 diabetes mellitus Exp ected: 05/12/2022 with hyperglycemia, with (Ap proximate), long-term current use of Exp ires: 11/11/2022 insulin TSH Lab Routine Type 2 diabetes mellitus Exp ected: 05/12/2022 with hyperglycemia, with (Ap proximate), long-term current use of Exp ires: 11/11/2022 insulin documented as of this encounter Visit Diagnoses Diagnosis Type 2 diabetes mellitus with hyperglyce maki, with long-term current use of insulin CKD (chronic kidney disease) stage 4, GF R 15-29 ml/min Chronic kidney disease, Stage IV (severe ) S/P bilateral BKA (below knee amputation ) Lower limb amputation, below knee History of renal transplant Kidney replaced by transplant documented in this encounter Care Teams Documentation Coordinator Relationship Specialty Start Date End Date Violetta Sanford MD PCP - General 04/02/14 [address] [place] [address] documented as of this encounter
--- OUTSIDE RECORDS SUMMARY | 2022-05-24 10:46 | XMS_ITS | Encounter Summary ---
:1955 Author Organization [facility] [place] [address] Care Team Providers Name Role Phone Violetta Sanford MD Primary Care Provider Reason for Visit Reason Onset Date Comments Labs Only 02/24/2022 Lab Tracking Encounter Details Date Type Department Care Team Description 02/24/2022 Telephone Hematology/Oncology at [facility], Labs Only (Lab Tracking) [facility] Angelica Gilbert RN [address] [place] [phone] Social History Tobacco Use Types Packs/Day [...] Telephone Encounter - Angelica Malhotra RN - 02/24/2022 12:02 PM EDT LAB TRACKING Leroy Torres [id number] 1955 ?? DIAGNOSIS: Anemia d/t CKD stage IV, h/o kidney transplant ?? LABS: CBC every 4 weeks as of 05/27/21 ?? MEDICATIONS: Aranesp 300 mcg every 2 weeks if HGB <12 as of 05/27/21 Venofer x 3 weeks last given 12/16/21 ASSESSMENT/PLAN: Labs at [facility]. Pt received aranesp today. Labs again 03/24. 02/24/22 00:00 WBC 6.52 (E) Hemoglobin 9.9 (E) Hematocrit 32.0 (E) Platelets 191 (E) Retic Ct % 1.8 (E) Neutr Abs (ANC) 3.83 (E) (E): External lab result documented in this encounter Plan of Treatment Upcoming Encounters Date Type Specialty Care Team Description 05/26/2022 Office Visit Otolaryngology Ricardo Panda PA [facility] [address] [place], [place] [address] (Wo rk) 06/02/2022 Infusion Hematology and Oncology 06/16/2022 Infusion Hematology and Oncology 06/21/2022 Office Visit Neurology Tyler Rojas MD [facility] Neurology [place], [place] [phone] (Wo rk) 06/30/2022 Infusion Hematology and Oncology 07/14/2022 Infusion Hematology and Oncology 07/28/2022 Infusion Hematology and Oncology 08/11/2022 Infusion Hematology and Oncology 11/04/2022 Office Visit Rheumatology Dante Freedman PA [facility] RHEUMATOLOGY [place], [place] [address] (Wo rk) documented as of this encounter Procedures Procedure Name Priority Date/Time Associated Diagnosis Comme nts CBC (WITH DIFF) Routine 02/24/2022 Results for this procedure are in the resu lts section. documented in this encounter Results CBC (with Diff) (02/24/2022) P athologist Signature WBC 6.52 Hemoglobin 9.9 Hematocrit 32.0 Platelets 191 Neutr Abs (ANC) 3.[address] % 1.8 Specimen (Source) Anatomical Location Collection Method / Collectio n Time Received Time / Laterality Volume Blood Historical Provider HEMATOLOGY ORDERABLES documented in this encounter Visit Diagnoses Not on filedocumented in this encounter Care Teams Roving Inspector Relationship Specialty Start Date End Date Violetta Sanford MD PCP - General 04/02/14 [address] [place] [address] documented as of this encounter
--- OUTSIDE RECORDS SUMMARY | 2022-05-24 10:46 | XMS_ITS | Encounter Summary ---
:1955 Author Organization [facility] [place] [address] Care Team Providers Name Role Phone Violetta Sanford MD Primary Care Provider Encounter Details Date Type Department Care Team Description 02/22[facility]2022 [facility] [place] [phone] Social History Tobacco Use Types Packs/Day [...] this encounter Miscellaneous Notes Telephone Encounter - JasielOctober - 02/22/2022 10:42 AM EDT Leroy Torres [id number] Diagnosis/Indication: esophageal dysphagia. Please obtain panesophageal bx. Please review patient chart to confirm if previous Endoscopy procedure was performed within system. If yes, take note of Anesthesia type used. If previous procedure found, and with MAC/propofol Anesthesia support was used, schedule this procedure with Anesthesia and skip the Anesthesia portion of qu estions. If not performed within system, not performed at all, or performed with IVCS, ask Anesthesia questions. SCHEDULING QUESTIONS (ask all patient these questions) 1. Have you ever had a/an Upper Endoscopy before? No If yes, did you have any problems with the procedure (such as waking up during the procedure, pain or difficulties afterwards, etc.)? No What type of sedation was used: None 2. Do you take any blood thinners or have you been diagnosed with a bleeding disorder that increasesyour risk of bleeding with procedures? No 3. Do you have a Pacemaker or Defibrillator device? If yes, send pool message to Cardiology with patient information and date or procedure. No 4. Are you a diabetic? If yes, call PCP/managing provider to discuss use of prep and any questions or concerns related to. Yes: Controlled by diet or medication? Both 5. Do you take any iron supplements or vitamins that contain iron? No 6. Do you have a preference regarding the gender of your provider? No ANESTHESIA QUESTIONS (YES to any question, please book with Anesthesia support) 7. Have you ever been diagnosed with any of the following: Pulmonary Hypertension, Atrial Fibrillation (A-Fib) and/or Congential Heart Disease? Yes Afib 8. Have you ever had an allergic or adverse reaction to Fentanyl or Versed? No 9. Have you had a problem with sedation or anesthesia? (Waking up during procedure, extreme confusion after, etc.) No 10. Do you have a diagnosis of Obstructive Sleep Apnea? No 11. Do you use a c-pap machine? Neither 12. Do you use an oxygen tank at home? No 13. Do you use a rescue inhaler more than twice per day? (COPD, severe asthma) No 14. Do you experience breathing problems when you lay flat for a period of time? No 15. Do you take prescription narcotic pain medications, including suboxone or methodone? No SCHEDULING CONFIRMATIONS: Please note any and all parts of your conversation with the patient here. 16. We offer all new patients an opportunity to have an appointment with one of our associate care providers to learn more about your upcoming procedure, ask questions and get answers. These appointments are offered via telehealth. Would you be interested in scheduling this appointment? (Only ask if NEW referral patient; skip this question if [facility] provider ordered the procedure.) No 17. Is there any other information or concerns you would like to us to share with your care team in relation to your upcoming scheduled procedure? No 18. You must have a responsible democrat who will drive you to your procedure, stay on campus for the entire duration of your procedure, and drive you home from your procedure. Who will likely be your driver examiner for the procedure? *Please Verify the height and weight, and adjust if height and/or weight have changed* Estimated body mass index is 32.39 kg/m?? as calculated from the following: Height as of 02/10/22: 193 cm (6' 3.98). Weight as of 02/10/22: 120.7 kg (266 lb). Age:66 y.o. documented in this encounter Plan of Treatment Upcoming Encounters Date Type Specialty Care Team Description 05/26/2022 Office Visit Otolaryngology Ricardo Pnada PA [facility] [address] [place], [place] [address] (Wo rk) 06/02/2022 Infusion Hematology and Oncology 06/16/2022 Infusion Hematology and Oncology 06/21/2022 Office Visit Neurology Tyler Rojas MD [facility] Neurology [place], [place] [phone] (Wo rk) 06/30/2022 Infusion Hematology and Oncology 07/14/2022 Infusion Hematology and Oncology 07/28/2022 Infusion Hematology and Oncology 08/11/2022 Infusion Hematology and Oncology 11/04/2022 Office Visit Rheumatology Dante Freedman PA [facility] RHEUMATOLOGY [place], [place] [address] (Wo rk) documented as of this encounter Visit Diagnoses Not on filedocumented in this encounter Care Teams Herbarium Curator Relationship Specialty Start Date End Date Violetta Sanford MD PCP - General 04/02/14 [address] [place] [id number] documented as of this encounter
--- OUTSIDE RECORDS SUMMARY | 2022-05-24 10:46 | XMS_ITS | Encounter Summary ---
:1955 Author Organization [facility] [place] [address] Care Team Providers Name Role Phone Violetta Sanford MD Primary Care Provider Encounter Details Date Type Department Care Team Description 03/17/2022 Laboratory Appointment Lab [address] [place] [phone] Social History Tobacco Use Types Packs/Day [...] 05/26/2022 Office Visit Otolaryngology Ricardo Panda PA [facility] [address] [place] [address] (Wo rk) 06/02/2022 Infusion Hematology and Oncology 06/16/2022 Infusion Hematology and Oncology 06/21/2022 Office Visit Neurology Tyler Rojas MD [facility] [address] [place] [address]22 (Wo rk) 06/30/2022 Infusion Hematology and Oncology 07/14/2022 Infusion Hematology and Oncology 07/28/2022 Infusion Hematology and Oncology 08/11/2022 Infusion Hematology and Oncology 11/04/2022 Office Visit Rheumatology Dante Freedman PA [facility] RHEUMATOLOGY [place], [place] [address] (Wo rk) documented as of this encounter Visit Diagnoses Not on filedocumented in this encounter Care Teams Exercise Physiology Professor Relationship Specialty Start Date End Date Violetta Sanford MD PCP - General 04/02/14 [address] [place] [address] documented as of this encounter
--- OUTSIDE RECORDS SUMMARY | 2022-05-24 10:46 | XMS_ITS | Encounter Summary ---
:1955 Author Organization [facility] [place] [address] Care Team Providers Name Role Phone Violetta Sanford MD Primary Care Provider Reason for Visit Diagnostic Test (Routine) - Closed Specialty Diagnoses / Procedures Referred By Contact Refer red To Contact Radiology Diagnoses Dysphagia, unspecified type Shira Ramírez [facility] Rad Xray Procedures XR Fluoro Barium Swallow (Single Contrast) LEAD SQL [place] [address] [place] [address] Referral ID Status Reason Start Date Expiration Date Visits V isits Requested Authorized [id number] Closed Specialty 04/01/2022 09/30/2023 1 1 Service Requested Encounter Details Date Type Department Care Team Description 04/01/2022 Hospital Encounter XRay at [facility] [place] [place], Dysphagia, [address] [place] [address] Dr Shira Zurita APRN unspecified type [facility] [id number] Center [phone] [place] [address] Social History Tobacco Use Types Packs/Day Years [...] on file documented as of this encounter Medications at Time of Discharge [...] Use to continuously 1 each 0 2 [place] Misc monitor blood glucose. Scan at least [...] 6 kit 3 01/13/2021 Day Sensor Kit [facility]Non-Drug; Combo Route) route every 14 days. Use to continuously monitor blood glucose. Scan at least 5 times per day. DX: E11.65 darbepoetin cristy in Inject 300 mg as 0 polysorbat 10 mcg/0.4 directed as needed. mL Syringe cyanocobalamin, Take 100 mcg by mouth 0 Vitamin B-12, daily. (Vitamin B-12) 100 mcg Tablet Blood-Glucose Sensor by [facility]Non-Drug; 0 (Dexcom G6 Sensor) Combo Route) route. Device Sensor, flat lock machine operator andtransmitter metoprolol succinate Take 1 tablet by mouth 90 tablet 1 04/2020 XL (Toprol-XL) 50 mg daily. Tablet Sustained Release 24 hr amLODIPine (Norvasc) Take 0.5 tablets by 90 tablet 3 2019 10 mg Tablet mouth daily. fluticasone INSTILL 2 SPRAYS INTO 0 09/06/2019 propionate (FLONASE) EACH NOSTRIL ONCE A 50 mcg/actuation DAY NEEDED [place], Suspension multivitamin with Take 1 tablet by mouth 0 minerals Tablet Daily. LEVEMIR FLEXTOUCH Inject 50-80 Units 45 mL 02/13/2018 U-100 INSULN Insulin subcutaneously 2 times Pen daily. ICD 10 Code: E11.40 liraglutide (VICTOZA Inject 1.2 mg 6 mL 03/09/2017 3-FAZAL) 0.6 mg/0.1 mL subcutaneously daily. (18 mg/3 mL) Pen InjectorIndications: Type 2 diabetes mellitus with complication, with long-term current use of insulin insulin needles, 1 Device by 100 each 3 03/09/2017 disposable, 29 gauge [facility]Non-Drug; Combo x 1/2 Route) route 3 times NeedleIndications: daily. Type 2 diabetes mellitus with complication, with long-term current use of insulin atorvastatin Take 1 tablet by mouth 90 tablet 3 02/03/2017 (LIPITOR) 20 mg daily. Tablet folic acid (FOLVITE) Take 2 tablets by 180 tablet 3 02/04/20 17 1 mg Tablet mouth daily. omeprazole (PRILOSEC) Take 1 capsule by 90 capsule 017 40 mg Capsule, mouth daily. Delayed Release(E.C.) acetaminophen Take 650 mg by mouth 0 (TYLENOL) 325 mg every 4 hours as Tablet needed for Pain. Reported on 08/06/2016 Miscellaneous Medical 4 Devices by 4 each 0 12/02/2015 Supply [facility]Non-Drug; Combo MiscIndications: S/P Route) route daily. bilateral [...] Drops, Suspension documented as of this encounter Plan of Treatment Upcoming Encounters Date Type Specialty Care Team Description 05/26/2022 Office Visit Otolaryngology Ricardo Panda PA [facility] [address] [place] [address] (Wo rk) 06/02/2022 Infusion Hematology and Oncology 06/16/2022 Infusion Hematology and Oncology 06/21/2022 Office Visit Neurology Tyler Rojas MD [facility] Neurology [place], [place] [phone] (Wo rk) 06/30/2022 Infusion Hematology and Oncology 07/14/2022 Infusion Hematology and Oncology 07/28/2022 Infusion Hematology and Oncology 08/11/2022 Infusion Hematology and Oncology 11/04/2022 Office Visit Rheumatology Dante Freedman PA [facility] RHEUMATOLOGY [place] [address] (Wo rk) Scheduled Orders Name Type Priority Associated Diagnoses Order S chedule XR Fluoro Barium Imaging Routine Dysphagia, unspecified 1 Occurrences starting Swallow (5 Minute type 04/01/2022 until Timed) 04/01/2022 documented as of this encounter Procedures Procedure Name Priority Date/Time Associated Diagnosis Comme nts XR FLUORO BARIUM Routine 04/01/2022 9:12 AM Dysphagia, Resul ts for this SWALLOW (SINGLE EDT unspecified type procedur e are in CONTRAST) the results section. documented in this encounter Results XR Fluoro Barium Swallow (Single Contrast) (04/01/2022 [...] who have questions please contact the health rn progressive care unit that requested your imaging first. ? Narrative 04/01/2022 10:25 AM EDT EXAMINATION: XR FLUORO BARIUM SWALLOW (SINGLE CONTRAST) CLINICAL HISTORY: ?[place] TECHNIQUE: Formal barium swallow examination with t imed component were unable to be performed due to patient mobility limita tions. Single contrast esophagram and a semisupine angle was performed. ??Fluoro scopic spot films were obtained. Fluoro time: 0.82 minutes COMPARISON: None FINDINGS: Booth Supervisor: The visualized lungs and cardiomediastin al contours [...] Fluoro time: 0.82 minutes COMPARISON: None FINDINGS: Booth Supervisor: The visualized lungs and cardiomediastin al contours [...] ho have questions please contact the health rn progressive care unit that requested your imaging first. Shira Ramírez LEAD SQL DEVELOPER IMG FLUORO ORDERABLES documented in this encounter Visit Diagnoses Diagnosis Dysphagia, unspecified type documented in this encounter Administered Medications Inactive Administered Medications - up to 3 most recent administrations Medication Order MAR Action Action Date Dose Rate Site barium sulfate (Ezpaque) 60% (w/v) Given 04/01/2022 9:12 AM EDT 50 mLs oral liquid 0-710 mL 0-710 mL, Oral, ONCE PRN, 1 dose, Starting on Lucie 04/01/22 at 0845, Until Lucie 04/01/22 at 0912, Per Protocol, Radiology Contrast, Routine documented in this encounter Care Teams Adult Probation Officer Relationship Specialty Start Date End Date Violetta Sanford MD PCP - General 04/02/14 [address] [place] [address] documented as of this encounter
--- OUTSIDE RECORDS SUMMARY | 2022-05-24 10:46 | XMS_ITS | Encounter Summary ---
:1955 Author Organization [facility] [place] [address] Care Team Providers Name Role Phone Violetta Sanford MD Primary Care Provider Encounter Details Date Type Department Care Team Description 03/04/2022 External Results Solid Organ Transpla nt at [facility] [place] [address] Social History Tobacco Use Types Packs/Day [...] 05/26/2022 Office Visit Otolaryngology Ricardo Panda PA [facility] er Dr [place] [address] (Wo rk) 06/02/2022 Infusion Hematology and Oncology 06/16/2022 Infusion Hematology and Oncology 06/21/2022 Office Visit Neurology Tyler Rojas MD [facility] Dr Sofi [place] [address] 6-[address]22 (Wo rk) 06/30/2022 Infusion Hematology and Oncology 07/14/2022 Infusion Hematology and Oncology 07/28/2022 Infusion Hematology and Oncology 08/11/2022 Infusion Hematology and Oncology 11/04/2022 Office Visit Rheumatology Dante Freedman PA [facility] [place] [address] (Wo rk) documented as of this encounter Procedures Procedure Name Priority Date/Time Associated Diagnosis Comme nts EXTERNAL LAB RESULTS Routine 02/24/2022 EXTERNAL LAB RESULTS Routine 02/24/2022 EXTERNAL LAB RESULTS Routine 02/24/2022 documented in this encounter Results External Lab Results (02/24/2022) Historical Provider CHEMISTRY ORDERABLES External Lab Results (02/24/2022) Historical Provider CHEMISTRY ORDERABLES External Lab Results (02/24/2022) Historical Provider CHEMISTRY ORDERABLES documented in this encounter Visit Diagnoses Not on filedocumented in this encounter Care Teams Reinforcing Metal Worker Relationship Specialty Start Date End Date Violetta Sanford MD PCP - General 04/02/14 [address] [place] [address] documented as of this encounter
--- OUTSIDE RECORDS SUMMARY | 2022-05-24 10:46 | XMS_ITS | Encounter Summary ---
:1955 Author Organization [facility] [place] [address] Care Team Providers Name Role Phone Violetta Sanford MD Primary Care Provider Encounter Details Date Type Department Care Team Description 03/17/2022 Office [place] [facility] [place]ha sensorineural h earing loss; [facility] WENDI [place] History of tympanostomy tube placement [facility] [phone] AUDIOLOGY DEPT [phone] [place], [place] [address] Social History Tobacco Use Types [...] documented as of this encounter Progress Notes Mer Cunha AUD - 03/17/2022 9:45 AM EDT AUDIOLOGY [place], [place] Name: Leroy Torres Age: 66 y.o. Patient was seen for an audiologic evaluation in conjunction with an appointment with ENT. Please refer to the audiogram (under 'procedures' tab) for background/history, findings, impressions, and recommendations. Today's findings and recommendations were shared with the patient/family at the time of the visit. Wendi Szymanski, [facility], [facility] [employer] [place] [address] (v) [phone] / (f) [phone] documented in this encounter Plan of Treatment Upcoming Encounters Date Type Specialty Care Team Description 05/26/2022 Office Visit Otolaryngology Ricardo Panda PA [facility] [place], [place] [address] (Wo rk) 06/02/2022 Infusion Hematology and Oncology 06/16/2022 Infusion Hematology and Oncology 06/21/2022 Office Visit Neurology Tyler Rojas MD [facility] Neurology [place], [place] [phone] (Wo rk) 06/30/2022 Infusion Hematology and Oncology 07/14/2022 Infusion Hematology and Oncology 07/28/2022 Infusion Hematology and Oncology 08/11/2022 Infusion Hematology and Oncology 11/04/2022 Office Visit Rheumatology Dante Freedman PA [facility] RHEUMATOLOGY [place], [place] [address] (Wo rk) documented as of this encounter Procedures Procedure Name Priority Date/Time Associated Comments Diagnosis COMPREHENSIVE HEARING Routine 03/17/2022 9:51 AM Results for this TEST EDT procedure are i n the results section. documented in this encounter Results Comprehensive hearing test (03/17/2022 9:51 AM EDT) [...] HL for which has bilateral GARCIA (managing service delivery manager is Dr. Moody). To day, patient reported [...] frequencies. Word recognition (using CD- recorded, MEEI 07/26 list at patient's reported MCL): RT=76% and LT= 64%. RECS: 1) Continued m edical management of hearing loss. 2) Reeval of hearing as per ENT; sooner if concerns arise of possible change in hearing. 3) follow- up appointment to managing service delivery manager for GARCIA needs - p rohuyded there are no medical contraindications to resuming GARCIA use at this time. Procedure Note Unknown - 03/17/2022Formatting of this n ote might be different from the original. Audio eval in conjunction w/follow-up to Dr. 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 Avila). Also known leonel or h/o bilateral HL for which has bilateral GARCIA (managing service delivery manager is Dr. Moody). To day, patient reported [...] frequencies. Word recognition (using CD- recorded, MEEI / list at patient's reported MCL): RT=76% and LT= 64%. RECS: 1) Continued m edical management of hearing loss. 2) Reeval of hearing as per ENT; sooner if concerns arise of possible change in hearing. 3) follow- up appointment to managing service delivery manager for GARCIA needs - p rovided there are no medical contraindications to resuming GARCIA use at this time. Mer [facility] ORDERABLE S Performing Organization Address City/State/ZIP Code Phon e Number AUDBASE COMP documented in this encounter Visit Diagnoses Diagnosis Asymmetrical sensorineural hearing loss Sensorineural hearing loss, asymmetrical History of tympanostomy tube placement documented in this encounter Care Teams Cable Assembler And Swager Relationship Specialty Start Date End Date Violetta Sanford MD PCP - General 04/02/14 [address] [place] [address] documented as of this encounter
--- OUTSIDE RECORDS SUMMARY | 2022-05-24 10:46 | XMS_ITS | Encounter Summary ---
:1955 Author Organization [facility] [place] [address] Care Team Providers Name Role Phone Violetta Sanford MD Primary Care Provider Reason for Visit Reason Comments Injections Aranesp Treatment/Therapy Plan Authorization (Routine) - Authorized Specialty Diagnoses / Procedures Referred By Contact Refer red To Contact Hematology and Diagnoses CKD (chronic kidney disease) stage 4, GFR 15-29 ml/min Nicky Baez Hem Onc Office Oncology Procedures ALFREDA Ramirez MD [address] [place] [address] HEMATOLOGY/ONCOLOGY [id number] [place] [address] Referral ID Status Reason Start Date Expiration Date Visits V isits Requested Authorized [id number] Authorized 10/08/2020 06/23/2022 99 99 Encounter Details Date Type Department Care Team Description 02/24/2022 Infusion Hematology Oncology at [facility] of chronic renal [facility] failure, stage 4 (severe) [address] [place] [phone] Social History Tobacco Use Types [...] Sign Reading Time Taken Comments Blood Pressure 155/62 02/24/2022 12:08 PM EDT Pulse 63 02/24/2022 12:08 PM EDT Temperature 36.6 ??C (97.9 ??F) 02/24/2022 12:08 PM EDT Respiratory Rate 18 02/24/2022 12:08 PM EDT Oxygen Saturation 100% 02/24/2022 12:08 PM EDT Inhaled Oxygen Concentration - - Weight - - Height - - Body Mass Index - - documented in this encounter Progress Notes Amena Burnette RN - 02/24/2022 12:00 PM EDT INFUSION THERAPY ADMINISTRATION NOTES ?? DIAGNOSIS: Iron Deficiency/CKD REASON FOR VISIT: Aranesp ?? SUBJECTIVE Reuben offers no complaints. ?? OBJECTIVE LAB DATA: Hgb 9.9, Hct 32.0 ?? Pre administration: Medication orders independently verified for drug name, route, and dosage per patient's height, weight and BSA by Sumeet Burnette RN and [facility] on-site ?? REACTIONS (DESCRIPTION, TIME, INTERVENTION AND EFFECTIVENESS) none ?? ASSESSMENT Reuben was awake, alert and tolerated treatment well. ?? PLAN Return to clinic in 2 weeks documented in this encounter Plan of Treatment Upcoming Encounters Date Type Specialty Care Team Description 05/26/2022 Office Visit Otolaryngology Ricardo Panda PA [facility] [address] [place] [address] (Oscar escobedo) 06/02/2022 Infusion Hematology and Oncology 06/16/2022 Infusion Hematology and Oncology 06/21/2022 Office Visit Neurology Tyler Rojas MD [facility] Dr [place] [place], [place] [phone] (Oscar escobedo) 06/30/2022 Infusion Hematology and Oncology 07/14/2022 Infusion Hematology and Oncology 07/28/2022 Infusion Hematology and Oncology 08/11/2022 Infusion Hematology and Oncology 11/04/2022 Office Visit Rheumatology Dante Freedman PA [facility] [place]HEUMATOLOGY [place], [place] [address] (Wo rk) documented as of this encounter Visit Diagnoses Diagnosis Anemia of chronic renal failure, stage 4 (severe) documented in this encounter Administered Medications Inactive Administered Medications - up to 3 most recent administrations Medication Order MAR Action Action Date Dose Rate Site darbepoetin cristy-polysorbate Given 02/24/2022 12:20 PM EDT 300 m cg Right Arm (Aranesp) (300 mcg/0.6 mL) injection 300 mcg 300 mcg, Subcutaneous, ONCE, 1 dose, On Tue02/24/22 at 1230, Hold parameters for MDS and chemotherapy-induced anemia: Hemoglobin greater than or equal to 10 gm/dL Hematocrit greater than or equal to 30% Hold parameters for CKD: Hemoglobin greater than or equal to 12 gm/dL Hematocrit greater than or equal to 36%, Routine, What is the indication of use? Chronic Kidney Disease (CKD) documented in this encounter Care Teams Warehouse Shipping Associate Relationship Specialty Start Date End Date Violetta Sanford MD PCP - General 04/02/14 [address] [place] [address] documented as of this encounter
--- OUTSIDE RECORDS SUMMARY | 2022-05-24 10:46 | XMS_ITS | Encounter Summary ---
:1955 Author Organization [facility] [place] [address] Care Team Providers Name Role Phone Violetta Sanford MD Primary Care Provider Reason for Visit Reason Comments Post Op Some draining, . AD aching . 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; [place] [address] OTOLARYNGOLOGY Tinnitus aurium, bilateral [phone] [place] [address] Social History Tobacco Use Types Packs/Day Years [...] - Inhaled Oxygen Concentration - - Weight 128.8 kg (284 lb) 01/14/2022 9:23 AM EDT Height 194.3 cm (6' 4.5) 01/14/2022 9:23 AM EDT Body Mass Index 34.12 01/14/2022 9:23 AM EDT documented in this encounter Progress Notes Iraj Scott MD - 01/14/2022 9:20 AM EDT [facility] Otolaryngology - Head and Neck Surgery Iraj Scott MD 01/17/22 7:01 AM [place], [place] [address] Office Patient Name: Leroy Torres Date of : 1955 PCP: Violetta Sanford MD Chief Complaint: hearing loss Interval History: 01/14/2022: COM with effusion left ear. Underwent [...] the left. Bone-conduction thresholds essentially symmetric. 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 terminal operator current use of immunosuppressive drug Z79.899 ??? [...] to Visit Medication Sig Dispense Refill ??? cefPODOXime (Vantin) 200 mg Tablet Take 1 tablet by mouth 2 times daily for 10 days. 20 tablet 0 ??? amLODIPine (Norvasc) 10 mg Tablet Take 0.5 tablets by mouth daily. 90 tablet 3 ??? albuterol (PROVENTIL) 2.5 mg /3 mL (0.083 %) Solution for Nebulization Take 3 mLs by nebulization every 4 hours as needed for Wheezing. 90 mL 3 ??? atorvastatin (LIPITOR) 20 mg Tablet Take 1 tablet by mouth daily. 90 tablet 3 ??? acetaminophen (TYLENOL) 325 mg Tablet Take 650 mg by mouth every 4 hours as needed for Pain. Reported on 08/06/2016 ??? aspirin 81 mg EC tablet Take 81 mg by mouth daily. ??? ciprofloxacin-dexAMETHasone (Ciprodex) 0.3-0.1 % Drops, Suspension Place 4 drops into the left ear 2 times daily. Please use for 10 days. (Patient not taking: Reported on 01/14/2022) 7.5 mL 0 ??? guaiFENesin ER (Mucinex) 600 mg [...] Gilberto 2 Sensor Kit 1 each by [facility].(Non-Drug; Combo Route) route every 14 days. Use to continuously monitor blood glucose. Scan at least 4 times per day. 6 kit 3 ??? FreeStyle Gilberto 2 [place] [facility] Use to continuously monitor blood glucose. Scan [...] 14 Day Sensor Kit 1 each by [facility].(Non-Drug; Combo Route) route every 14 [...] Blood-Glucose Sensor (Dexcom G6 Sensor) Device by [facility].(Non-Drug; Combo Route) route. Sensor, men's and boys' clothing salesperson andtransmitter ??? metoprolol succinate XL (Toprol-XL) 50 mg Tablet Sustained Release 24 hr Take 1 tablet by mouth daily. 90 tablet 1 ??? fluticasone propionate (FLONASE) 50 mcg/actuation [place], Suspension INSTILL 2 SPRAYS INTO EACH NOSTRIL ONCE A DAY NEEDED ??? multivitamin with minerals Tablet Take 1 [...] gauge x 1/2 Needle 1 Device by [facility].(Non- Drug; Combo Route) route 3 times daily. 100 each 3 ??? folic acid (FOLVITE) 1 mg Tablet Take 2 tablets by mouth daily. 180 tablet 3 ??? omeprazole (PRILOSEC) 40 mg Capsule, Delayed Release(E.C.) Take 1 capsule by mouth daily. 90 capsule 3 ??? Miscellaneous Medical Supply [facility] 4 Devices by [facility].(Non-Drug; Combo Route) route daily. Rubber sheath for leg prosthesis (2 pairs) 4 each PRN ??? BD INSULIN PEN NEEDLE UF ORIG 29 gauge x 1/2 Needle 0 No current facility-administered medications on file prior to visit. Allergies: Iftikhar inhibitors, Clindamycin hcl, Allergenic extracts, Penicillins, and Sulfamethoxazole-trimethoprim Surgical History: Past Surgical History: Procedure Laterality [...] Biopsy Bone Marrow 10/22/2021 Richar Lo MD [facility] RAD CT SCAN ??? PRO AMPUTATION LOW LEG THRU TIB/FIB 06/21/2011 ??AMPUTATION, BELOW-KNEE performed by HENNA GAMINO JR at [facility] MAIN OR ??? PRO INCISION EARDRUM,ASPIR Left 12/29/2021 MYRINGOTOMY ASPIRATION OF MIDDLE EAR (WRVU 1.38) performed by Iraj Scott MD at [facility] MA[facility] OR ??? PRO LAP, APPENDECTOMY 06/16/2013 LAPAROSCOPIC APPENDECTOMY performed by Angel Mccann MD at [facility] MAIN OR ??? PRO MICROSURG TECHNIQUES, REQ OPER MICROSCOPE Left 12/29/2021 MICROSCOPE USE (WRVU 3.46) performed by Iraj Scott MD at [facility] MAIN OR ??? US RENAL TRANSPLANT LEFT Left 06/26/2019 US Renal Transplant Left 06/26/2019 [facility] ULTRASOUND Family and Social History Family History: No family history on file. Social History: Lives [place] [id number] Social History Socioeconomic History ??? Marital status: Spouse name: Not on file ??? Number of children: Not on file ??? Years of education: Not on file ??? Highest education level: Not on file Occupational History ??? Not on file Tobacco Use ??? Smoking status: Former Smoker Packs/day: 2.00 Years: 20.00 Pack years: 40.00 Types: Cigarettes Quit date: 01/19/1993 Years since quittin.0 ??? Smokeless tobacco: Never Used Vaping Use [...] Left Ear: Auricle normal. External auditory canal clear, but with bony canal appreciably narrowed. Drum is intact with focal bulge posterior superior. Middle ear effusion. Subtle suggestion of pulsation. No cholesteatoma. ASSESSMENT & RECOMMENDATIONS Leroy Torres is a [...] attributed to narrowed bony external auditory canal. Did subsequent office myringotomy with thick mucoid effusion. Then underwent sedated myringotomy with plan for tympanostomy tube. Effusion clear and pulsating with strong suggestion of CSF. Tympanostomy tube deferred in that setting. Beta 2 transferrin ultimately negative. No obvious tegmen defect by CT. Post-procedural course complicated by recent ear otalgia with otorrhea and presumed AOM now essentially resolved following antibiotics. Now drum intact with residual middle ear effusion left ear. Audiogram with slight sloping to severe high-frequency mixed hearing loss bilaterally, predominantlysensorineural, with some bilateral conductive overlay, worse on the left. Bone-conduction thresholdsessentially symmetric. Well preserved bilateral discrimination. Normal tympanogram on the right, with negative pressure tympanogram on the left. History and examination findings congruent with chronic mucoserous otitis media, left ear, and suspected ETD on this side. Explained to patient and spouse the recent clinical course and rationale surrounding decision to initially defer tympanostomy tube. Discussed therapeutic options at this point, toagain include myringotomy with tube insertion for the left ear under anesthesia. The risks, benefits, indications and alternatives to myringotomy with or without tube have been discussed with the patient, including, but not limited to pain, otorrhea, infection, perforation, retained tube, cholesteatoma, hearing loss, and dizziness. The patient expressed understanding of these risks and desire to proceed with scheduling. He will be referred for surgical scheduling. Will complete po abx course. May discontinue gtts. Early return precautions reviewed. Patient verbally expressed understanding and was in agreement with the plan as outlined above. Total time spent counseling and coordinating patient care 30 minutes. Iraj Scott MD Otology / Neurotology Otolaryngology - Head & Neck Surgery 01/17/22 7:01 AM documented in this encounter Plan of Treatment Upcoming Encounters Date Type Specialty Care Team Description 05/26/2022 Office Visit Otolaryngology Ricardo Panda PA [facility] [place], [place] [address] (Wo rk) 06/02/2022 Infusion Hematology and Oncology 06/16/2022 Infusion Hematology and Oncology 06/21/2022 Office Visit Neurology Tyler Rojas MD [facility] Neurology [place], [place] [phone] (Wo rk) 06/30/2022 Infusion Hematology and Oncology 07/14/2022 Infusion Hematology and Oncology 07/28/2022 Infusion Hematology and Oncology 08/11/2022 Infusion Hematology and Oncology 11/04/2022 Office Visit Rheumatology Dante Freedman PA [facility] RHEUMATOLOGY [place], [place] [address] (Wo rk) documented as of this encounter Visit Diagnoses Diagnosis Chronic mucoid otitis media of left ear Simple or unspecified chronic mucoid beth tis media ETD (Eustachian tube dysfunction), left 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
--- OUTSIDE RECORDS SUMMARY | 2022-05-24 10:46 | XMS_ITS | Encounter Summary ---
:1955 Author Organization [facility] [place] [address] Care Team Providers Name Role Phone Violetta Sanford MD Primary Care Provider Encounter Details Date Type Department Care Team Description 02/01/2022 External Results Solid Organ Transpla nt at [facility] [place] [address] Social History Tobacco Use Types Packs/Day [...] Office Visit Otolaryngology Ricardo Panda PA [facility] er [address] [place] [address] (Wo rk) 06/02/2022 Infusion Hematology and Oncology 06/16/2022 Infusion Hematology and Oncology 06/21/2022 Office Visit Neurology Tyler Rojas MD [facility] Dr [address]i [place] [address]22 (Wo rk) 06/30/2022 Infusion Hematology and Oncology 07/14/2022 Infusion Hematology and Oncology 07/28/2022 Infusion Hematology and Oncology 08/11/2022 Infusion Hematology and Oncology 11/04/2022 Office Visit Rheumatology Dante Freedman PA [facility] RHEUMATOLOGY [place], [place] [address] (Wo rk) documented as of this encounter Procedures Procedure Name Priority Date/Time Associated Diagnosis Comme nts LAB SCAN Routine 01/28/2022 Results for thi s procedure are in the resu lts section. documented in this encounter Results Scan Doc: Lab (01/28/2022) Narrative This result has an attachment that is no t available. Historical Provider MD SANDOVAL MGR SCAN EXT ORDR/RSLT documented in this encounter Visit Diagnoses Not on filedocumented in this encounter Care Teams Tire Mold Tester Relationship Specialty Start Date End Date Violetta Sanford MD PCP - General 04/02/14 [address] [place] [address] documented as of this encounter
--- OUTSIDE RECORDS SUMMARY | 2022-05-24 10:46 | XMS_ITS | Encounter Summary ---
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 [facility] [place] [address] Referral ID Status Reason Start Date Expiration Date Visits V isits Requested Authorized [id number] Closed Test Only 02/16/2022 02/16/2023 1 1 Reason for Visit Consultation (Routine) - Authorized Specialty Diagnoses / Procedures Referred By Contact Refer red To Contact Gastroenterology Diagnoses Dysphagia, unspecified type dysphagia Violetta Sanford MD [facility] Gastro 4l [facility] [address] [address] Phone: Fax: Referral ID Status Reason Start Expiration Visits Visits Date Date Requested Authorized [id number] Authorized Consult, 12/04/2021 12/04/2022 6 6 Test & Treat PCP Updated and/or Approved Encounter Details Date Type Department Care Team Description 02/16/2022 Office Visit Gastroenterology at [facility] Dilan Ramírez [facility] Giovana [place] [address] [facility] [phone] [place] [address] Social History Tobacco Use Types Packs/Day Years [...] Sign Reading Time Taken Comments Blood Pressure 144/51 02/16/2022 2:38 PM EDT Pulse 66 02/16/2022 2:38 PM EDT Temperature - - Respiratory Rate - - Oxygen Saturation - - Inhaled Oxygen Concentration - - Weight - - Height - - Body Mass Index - - documented in this encounter Patient Instructions Patient InstructionsSieglingShira guerrero APRN - 02/16/2022 3:00 PM EDT Upper endoscopy with anesthesia. Please feel free to call us to set up this appointment. The secretaries should reach out to you within a few days, but definitely call us if you do not hear from us within a few days. 2. Esophageal manometry. You will hear from our back wedger to set this up once an appointment becomesavailable. You should hear from someone within one week. If not please call us. 3. Five minute timed barium swallow. Please call radiology to schedule your imaging studies at the [facility]. Main radiology scheduling line 4. Follow-up with me one month after testing is complete documented in this encounter Progress Notes Shira Ramírez APRN - 02/16/2022 3:00 PM EDT Chief Complaint: Leroy Torres is a 66 y.o. patient referred for consultation by Dr. Sanford for dysphagia History of Present Illness: 66 y.o. male with a history significant for tremors, hyperlipidemia, COPD, DM 2, Charcot's arthropathy, BKA amputee, history of kidney transplant, status post appendectomy 2012, chronic atrial fibrillation Endorses symptoms for 2-3 years. Has been getting worse. Primarily with solids. Three food impactions requiring a trip to ER. The last episode was yesterday. Occurring inconsistently between a few daysper week to once every few months. He has been taking omeprazole for 40 years. Denies heartburn. Good appetite. Denies early satiety.Denies chronic NSAID use. Denies unintentional weight loss. Denies nausea and vomiting. Denies constipation and diarrhea . Denies hematochezia/melena. Denies abdominal pain. Endorses atrial fibrillation COPD Last A1C 6.3% Review of systems: 14-system ROS reviewed and negative except as above Medications: Outpatient Medications Prior to Visit Medication Sig Dispense Refill ??? guaiFENesin ER (Mucinex) 600 mg Tablet [...] Gilberto 2 Sensor Kit 1 each by [employer].(Non-Drug; Combo Route) route every 14 days. Use to continuously monitor blood glucose. Scan at least 4 times per day. 6 kit 3 ??? FreeStyle Gilberto 2 [facility] Use to continuously monitor blood glucose. Scan [...] 14 Day Sensor Kit 1 each by [facility].(Non-Drug; Combo Route) route [...] Blood-Glucose Sensor (Dexcom G6 Sensor) Device by [facility].(Non-Drug; Combo Route) route. Sensor, beef grinder andtransmitter ??? metoprolol succinate XL (Toprol-XL) 50 mg Tablet Sustained Release 24 hr Take 1 tablet by mouth daily. 90 tablet 1 ??? amLODIPine (Norvasc) 10 mg Tablet Take 0.5 tablets by mouth daily. 90 tablet 3 ??? fluticasone propionate (FLONASE) 50 mcg/actuation [place], Suspension INSTILL 2 SPRAYS INTO EACH NOSTRIL [...] gauge x 1/2 Needle 1 Device by [facility].(Non- Drug; Combo Route) route 3 times daily. [...] Reported on 08/06/2016 ??? Miscellaneous Medical Supply [facility] 4 Devices by [facility].(Non-Drug; Combo Route) route daily. Rubber sheath for leg prosthesis (2 pairs) 4 each PRN ??? BD INSULIN PEN NEEDLE UF ORIG 29 gauge x 1/2 Needle 0 ??? aspirin 81 mg EC tablet Take 81 mg by mouth daily. No facility-administered medications prior to visit. Allergies: is allergic to yaneth inhibitors, clindamycin hcl, doxycycline, allergenic extracts, levofloxacin, penicillins, sulfamethoxazole, sulfamethoxazole-trimethoprim, and trimethoprim. Past Medical History: has no past medical history on file. Past Surgical History: has a past surgical history that includes created by interface; created by interface; created by interface; created by interface; created by interface; created by interface; created by interface; Amputation Low Leg Thru Tib/Fib (91265) (06/21/2011); Lap, Appendectomy (25456) (06/16/2013); US Renal Transplant Left (Left, 06/26/2019); CT Guided Biopsy Bone Marrow (10/22/2021); Microsurg Techniques, Req Oper Microscope (34731) (Left, 12/29/2021); Incision Right Eardrum, aspiration (Left, 12/29/2021); Create Eardrum Opening, Gen Anesth (42416) (Left, 02/09/2022); and Microsurg Techniques, Req Oper Microscope (40449) (Left, 02/09/2022). Family History: denies family history of colon cancer, IBD, or celiac disease in mother father or other family members Social History: reports that he quit smoking about 29 years ago. His smoking use included cigarettes. He has a 40.00 pack-year smoking history. He has never used smokeless tobacco. He reports current alcohol use. He reports that he does not use drugs. Physical Exam: VITAL SIGNS: BP 144/51 Pulse 66 BMI: There is no height or weight on file to calculate BMI. Gen: nad, normal body habitus Eyes: no scleral icterus Neurologic: intact to light touch Psych: appropriate affect, a+ox3 Questionnaire: No flowsheet data found. Laboratory studies, imaging, and procedures (my review of prior records): 1. Colonoscopy done at [facility] on 11/11/2020; pathology report available through [facility] records. Tubular adenoma. 2. Modified barium swallow done 01/12/2022 at outside hospital; no evidence of aspiration or penetration. Focal area of narrowing upper esophagus. Assessment/Plan: Mr. Torres is a 66 y.o. patient with the following issues: 1. Chronic esophageal dysphagia occurring primarily to solids and pills, with 3 documented food impactions requiring a trip to the emergency room (last episode was on 02/15/2022). Overall symptoms have been getting progressively worse over the past 2 to 3 year. Modified barium swallow was done 01/12/2022 showing a focal area of narrowing in the upper esophagus. Given his history and constellation of symptoms, I suspect eosinophilic esophagitis or another obstructive etiology for symptoms. However, I cannot rule out an evolving esophageal motor disorder. Of note, he does take Prograf, which does have a documented side effect of dysphagia. Recommendations: --EGD with anesthesia to evaluate for EoE, GERD, Sorensen's, gastritis --Esophageal manometry for esophageal dysphagia --Five minute timed barium swallow --Follow up with me approximately one month after testing Shira Ramírez APRN [facility] [place] [id number] documented in this encounter Plan of Treatment Upcoming Encounters Date Type Specialty Care Team Description 05/26/2022 Office Visit Otolaryngology Ricardo Panda PA [facility] Dr [place], [place] [address] (Wo rk) 06/02/2022 Infusion Hematology and Oncology 06/16/2022 Infusion Hematology and Oncology 06/21/2022 Office Visit Neurology Tyler Rojas MD [facility] Neurology [place], [place] [phone] (Wo rk) 06/30/2022 Infusion Hematology and Oncology 07/14/2022 Infusion Hematology and Oncology 07/28/2022 Infusion Hematology and Oncology 08/11/2022 Infusion Hematology and Oncology 11/04/2022 Office Visit Rheumatology Dante Freedman PA [facility] RHEUMATOLOGY [place], [place] [address] (Wo rk) Scheduled Orders Name Type Priority Associated Diagnoses Order S chedule ENDOSCOPY CASE Procedures Routine Dysphagia, unspecified Ord ered: 02/16/2022 REQUEST: EGD, UPPER GI type ENDOSCOPY XR Fluoro Barium Imaging Routine Dysphagia, unspecified E xpected: Swallow (5 Minute type 02/17/2022 , Expires: Timed) 05/19/2022 High Resolution GI Routine Dysphagia, unspecified Ex pected: 02/16/2022 Esophageal Manometry type (Approx imate), Expires: 2022 documented as of this encounter Visit Diagnoses Diagnosis Dysphagia, unspecified type documented in this encounter Care Teams Rand Cementer Relationship Specialty Start Date End Date Violetta Sanford MD PCP - General 04/02/14 [address] [place] [address] documented as of this encounter
--- OUTSIDE RECORDS SUMMARY | 2022-05-24 10:46 | XMS_ITS | Encounter Summary ---
:1955 Author Organization [facility] [place] [address] Care Team Providers Name Role Phone Violetta Sanford MD Primary Care Provider Encounter Details Date Type Department Care Team Description 02/09/2022 Anesthesia Event Main Operating Room Malissa Huber MD [facility] [place] [address] [facility] Kareem Bowden MD [facility] [place] [address] [place] [address] Anesthesia Record Procedure Summary Procedure Name Responsible Anesthesia Start Anesthesia Stop Time Anesthesiologist Time MYRINGOTOMY, Malissa Che MD 02/09/22 0814 02/09/22 0932 INSERTION OF TUBE (WRVU 2.01) (Left Ear) Events Date Time Event Comment 02/09/2022 0732 0814 AN Verify 0814 Start 0814 An Start Data 0823 An Induction 0825 An Intubation 0827 Anesthesia Ready 0911 Extubation/LMA Out 0913 an stop data 0932 Recovery or ICU Handoff Patient care was transferred to the destination unit staff after review of the patient's medica l history, current anesthetic/surgi gabriel status and plan, according to the Provider Handoff Checklist. 0932 Stop Name Total Midazolam 2 mg fentaNYL 50 mcg Propofol 220 mg Ondansetron 4 mg Dexamethasone 8 mg Propofol INF 362.1 mg lactated ringers infusion 150 mL Agents Name O2 Air N2O Sevoflurane (et) Blood No blood administrations on file. Lines, Drains, and Airways Type Details Placement Removal (RETIRED) Hemodialysis arteriovenous fistula; 06/16/13 1622 by Access left, forearm Purnima Larose, RN Incision 12/29/21; 0806; Left; 12/29/21 0806 by ear (myringotomy) Niyah Blair, SHEILA Incision 02/09/22; 0831; Left; 02/09/22 0831 by ear Andria Flores RN PIV 02/09/22; 0646; 02/09/22 0646 by 02/09/22 1025 b y metacarpal vein (top of Philibert, Loretta H, Wetm ore, Monico A, hand), right; 20 gauge; RN RN distraction, intradermal injection, tolerated well; 02/09/22; 1025 Supraglottic Mask Ventilation: Not 02/09/22 0830 by 02/09/22 0911 by Attempted (0); LMA Type: Kareem Bowden MD Fu Kareem carreno, iGel; LMA Size: 5; Inserted by: toro bowden documented in this encounter Social History Tobacco [...] encounter OR Notes Anesthesia Postprocedure Evaluation - Kareem Bowden MD - 02/09/2022 9:32 AM EDT Department of Anesthesiology Post-procedure Note Patient: Leroy Torres Procedure Summary Date: 02/09/22 Room / Location: [facility] OR [address] [place] [address] MAIN OR Anesthesia Start: 813 Anesthesia Stop: 931 Procedures: MYRINGOTOMY, INSERTION OF TUBE (WRVU 2.01) (Left Ear) MICROSCOPE USE (WRVU 3.46) (Left ) MODIFIER,ENT UNCOMPLICATED (N/A ) Diagnosis: Chronic mucoid otitis media of left ear ETD (Eustachian tube dysfunction), left Mixed conductive and sensorineural hearing loss of left ear with restricted hearing of right ear (chronic otitis media with effusion, left ear) Surgeons: Archie Avila MD Responsible Provider: Malissa Che MD Anesthesia Type: MAC ASA Status: 3 All Anesthesia Providers: Anesthesiologist: Malissa Che MD Bariatric Physician: Kareem Bowden MD Vitals Value Taken Time BP 141/70 02/09/22 0930 Temp 36.5 ??C (97.7 ??F) 02/09/22 0916 Pulse 60 02/09/22 0932 Resp 15 02/09/22 0932 SpO2 96 % 02/09/22 0932 Pain Level Vitals shown include unvalidated device data. Patient Location: PACU/[facility] Level of Consciousness: Conscious but Sleepy Pain Management: Satisfactory Analgesia PONV: None Cardiovascular Status: Bradycardia (received treatment) Respiratory Status: Supplemental O2 (NC or FM) Postoperative Fluid Status: Intravascular EUvolemia Possible Anesthetic Complications: NONE apparent at time of evaluation Final Primary Anesthesia Type: General (The anesthetic type performed was the same as planned.) Comments: Toro Bowden MD Associated attestation - Malissa Che MD - 02/09/2022 10:06 AM EDT Patient doing well, ready for discharge. Nursing noted that telemetry showing occasional skipped beats and rare PVCs. Discussed findings of low magnesium on AM labs with patient and spouse. Patient is to follow-up with nephrology and renal transplant in the next 10 days and will be sure to mention this finding to them. Given his complex medical and renal history, as well as the unlikely long- term improvement in magnesium levels from a 1 time IV magnesium dose, will hold off on magnesium replacement at this time. Discussed with patient and that if patient starts experiencing palpitations or anyirregularities in heart rhythm that he should seek medical attention. Patient and in agreement with plan. Anesthesia Preprocedure Evaluation - Kareem Bowden MD - 02/08/2022 5:04 PM EDT Pre-Anesthesia Evaluation for: Leroy Torres a 66 y.o. male. Procedure(s): MYRINGOTOMY, INSERTION OF TUBE ZENON (WRVU 2.01) MICROSCOPE USE (WRVU 3.46) MODIFIER,ENT UNCOMPLICATED Patient Active Problem List Diagnosis Date Noted [...] 09/20/2019 ??? Chronic atrial fibrillation 07/09/2019 ??? Anemia of chronic renal failure, stage 4 (severe) 07/09/2019 ??? Prophylactic immunotherapy 03/21/2019 ??? Persistent proteinuria 03/08/2017 ??? [facility] current use of immunosuppressive drug 07/23/2016 ??? [...] Biopsy Bone Marrow 10/22/2021 Richar Lo MD [facility] RAD CT SCAN ??? PRO AMPUTATION LOW LEG THRU TIB/FIB 06/21/2011 ??AMPUTATION, BELOW-KNEE performed by HENNA GAMINO JR at [facility] MAIN OR ??? PRO INCISION EARDRUM,ASPIR Left 12/29/2021 MYRINGOTOMY ASPIRATION OF MIDDLE EAR (WRVU 1.38) performed by Iraj Scott MD at [facility] MAIN OR ??? PRO LAP, APPENDECTOMY 06/16/2013 LAPAROSCOPIC APPENDECTOMY performed by Angel Mccann MD at [facility] OR ??? PRO MICROSURG TECHNIQUES, REQ OPER MICROSCOPE Left 12/29/2021 MICROSCOPE USE (WRVU 3.46) performed by Iraj Scott MD at [facility] OR ??? US RENAL TRANSPLANT LEFT Left 06/26/2019 US Renal Transplant Left 06/26/2019 [facility] RAD ULTRASOUND Social History Tobacco Use ??? Smoking status: Former Smoker Packs/day: 2.00 Years: 20.00 Pack years: 40.00 Types: Cigarettes Quit date: 01/19/1993 Years since quittin.0 ??? Smokeless tobacco: Never Used Substance Use Topics ??? Alcohol use: Yes Comment: Once a year Social History Substance and Sexual Activity Drug Use No Allergies Allergen Reactions ??? Iftikhar Inhibitors Cough ??? Clindamycin Hcl Rash ??? Doxycycline ??? Allergenic Extracts Birch and Nut Trees, cats, dust, pollen bird feathers ??? Levofloxacin Other reaction(s): Unknown ??? Penicillins Tolerated cefepime 01/07 ??? Sulfamethoxazole Other reaction(s): Unknown ??? Sulfamethoxazole-Trimethoprim ??? Trimethoprim Other reaction(s): Unknown Medications: MAR and/or home medications have been reviewed. Physical Exam: Preprocedure Vitals Current as of 02/08/22 1704 No BP, pulse, respiration, SpO2, or temperature recorded. Height: 194.3 cm (6' 4.5) (01/14/22) Weight: 128.8 kg (284 lb) (01/14/22) BMI: 34.12 IBW: 87.9 kg (193 lb 14 oz) Airway Assessment: Mallampati: II TM distance: <3 FB Neck ROM: full Cardiovascular Assessment: system normal Pulmonary Assessment: pulmonary exam normal Dental Assessment: (+) edentulous Misc Assessment: Last Filed Perioperative Cognitive Screening None Anesthesia Plan: ASA 3 MAC, with a(n) intravenous induction Leroy Torres is a 66 yo male with pmhx PAF, chronic anemia (hb 8.8 on 01/12/22), HLD, HTN, GERD, COPD, IDDM, s/p renal transplant (creatinine 3.2 on 01/03/22) with chronic immunosuppression who is admitted for myringectomy with bilateral tube insertion for chronic mucoid otitis media and combined senso rineural/conductive hearing loss with ENT surgery. Anesthesia hx: difficult mask, 2 person 2 hand with oral airway. 7.5 ETT in 2012 and LMA5 in 2019. ziopatch data from 2020: no afib. Predominate rhythm NSR HR 83. Stress test 2014: no WMA. EF 70%. No inducible ST segment changes with exercise. No valvulopathy. Lab Results Component Value Date HGB 8.8 01/12/2022 PLATELET 198 01/12/2022 INR 1.1 10/22/2021 NA 139 01/06/2022 K 5.8 (H) 01/06/2022 CREATININE 3.2 01/12/2022 No results for input(s): ABORH in the last 7068 hours. Allergies: -- Iftikhar Inhibitors -- Cough -- Clindamycin Hcl -- Rash -- Doxycycline -- Allergenic Extracts -- Birch and Nut Trees, cats, dust, pollen bird feathers -- Levofloxacin -- Other reaction(s): Unknown -- Penicillins -- Tolerated cefepime 01/07 -- Sulfamethoxazole -- Other reaction(s): Unknown -- Sulfamethoxazole-Trimethoprim -- Trimethoprim -- Other reaction(s): Unknown NPO Status: Appropriate Anesthetic Plan: GA with [place] airway/LMA Standard ASA monitoring Adequate IV access, PIVx1 Case booked for 20 minutes. Minimal blood loss expected. preop BMP for potassium check. preop glucose Region - Other Informed Consent: Anesthetic plan and risks discussed with patient. Plan discussed with resident. Anesthesia Screening documented in this encounter Plan of Treatment Upcoming Encounters Date Type Specialty Care Team Description 05/26/2022 Office Visit Otolaryngology Ricardo Panda PA [facility] [address] [place] [address] (Wo rk) 06/02/2022 Infusion Hematology and Oncology 06/16/2022 Infusion Hematology and Oncology 06/21/2022 Office Visit Neurology Tyler Rojas MD [facility] Neurology [place], [place] [phone] (Wo rk) 06/30/2022 Infusion Hematology and Oncology 07/14/2022 Infusion Hematology and Oncology 07/28/2022 Infusion Hematology and Oncology 08/11/2022 Infusion Hematology and Oncology 11/04/2022 Office Visit Rheumatology Dante Freedman PA [facility] RHEUMATOLOGY [place], [place] [address] (Wo rk) documented as of this encounter Visit Diagnoses Not on filedocumented in this encounter Administered Medications Inactive Administered Medications - up to 3 most recent administrations Medication Order MAR Action Action Date Dose Rate Site dexAMETHasone (Decadron) injection Given 02/09/2022 8:34 AM EDT 8 mg Intravenous, PRN, Starting on Tue02/09/22 at 0834, Until Tue02/09/22 at 0932, Anesthesia Intra-op, Routine fentaNYL (pf) (50 mcg/mL) multi-dose Given 02/09/2022 8:59 AM ED T 25 mcg injection Intravenous, PRN, Starting on Tue02/09/22 at 0850, Until Tue02/09/22 at 0932, Anesthesia Intra-op, Routine Given 02/09/2022 8:50 AM EDT 25 mcg lactated ringers infusion New Bag 02/09/2022 8:23 AM EDT 1,000 mL, at 100 mL/hr, Intravenous, CONTINUOUS, Starting on Tue02/09/22 at 0630, Until Tue02/09/22 at 1025, Day of Surgery (Day of Procedure) midazolam (pf) (Versed) (1 mg/mL) multi-dose Given 02/09/2022 8: 13 AM EDT 2 mg injection Intravenous, PRN, Starting on Tue02/09/22 at 0813, Until Tue02/09/22 at 0932, Anesthesia Intra-op, Routine ondansetron (pf) (Zofran) (2 mg/mL) inje ction Given 02/09/2022 8:34 AM EDT 4 mg Intravenous, PRN, Starting on Tue02/09/22 at 0834, Until Tue02/09/22 at 0932, Anesthesia Intra-op, Routine propofoL (Diprivan) (10 Rate/Dose 02/09/2022 8:40 50 mcg/kg/min 36.2 1 mg/mL) infusion Change AM EDT mL/hr Intravenous, CONTINUOUS PRN, Starting on Tue02/09/22 at 0823, Until Tue02/09/22 at 0932, Anesthesia Intra-op, Routine New Bag 02/09/2022 8:23 AM EDT 100 mcg/kg/min 72.42 mL/hr propofoL (Diprivan) 10 mg/mL bolus injection Given 2 9:01 AM EDT 20 mg (Anesthesia) Intravenous, PRN, Starting on Tue02/09/22 at 0825, Until Tue02/09/22 at 0932, Anesthesia Intra-op Given 02/09/2022 8:25 AM EDT 200 mg documented in this encounter Care Teams Shield Operator Relationship Specialty Start Date End Date Violetta Sanford MD PCP - General 04/02/14 [address] [facility] [place] [address] documented as of this encounter
--- OUTSIDE RECORDS SUMMARY | 2022-05-24 10:46 | XMS_ITS | Encounter Summary ---
:1955 Author Organization [facility] Address [facility] [place] [address] Care Team Providers Name Role Phone Violetta Sanford MD Primary Care Provider Encounter Details Date Type Department Care Team Description 02/02/2022 Orders Only Solid Organ Torsten Savage, H/O kidney transplant; Transplant at [facility] [facility] termination clerk current use of imm unosuppressive drug; [facility] Vitamin D deficiency; Drive Anemia of chronic renal fail ure, stage 4 (severe) [place] [phone] Social History Tobacco Use Types Packs/Day Years [...] 05/26/2022 Office Visit Otolaryngology Ricardo Panda PA [facility] [place] [address] (Wo rk) 06/02/2022 Infusion Hematology and Oncology 06/16/2022 Infusion Hematology and Oncology 06/21/2022 Office Visit Neurology Tyler Rojas MD [facility] er Neurology [place], [place] [phone] (Wo rk) 06/30/2022 Infusion Hematology and Oncology 07/14/2022 Infusion Hematology and Oncology 07/28/2022 Infusion Hematology and Oncology 08/11/2022 Infusion Hematology and Oncology 11/04/2022 Office Visit Rheumatology Dante Freedman PA [facility] ER RHEUMATOLOGY [place], [place] [address] (Wo rk) Scheduled Orders Name Type Priority Associated Diagnoses Order S chedule Transplant: Yearly Lab Routine H/O kidney tr ansplant Expected: 02/03/2022 lab request - termination clerk current use of (A pproximate), External Results immunosuppressi ve drug Expires: 02/02/2023 Vitamin D defici ency Anemia of chronic renal failure, stage 4 (severe) documented as of this encounter Visit Diagnoses Diagnosis H/O kidney transplant Kidney replaced by transplant [facility] current use of immunosuppressi ve drug Vitamin D deficiency Unspecified vitamin D deficiency Anemia of chronic renal failure, stage 4 (severe) documented in this encounter Care Teams Slab Grinder Relationship Specialty Start Date End Date Violetta Sanford MD PCP - General 04/02/14 [address] [place] [address] documented as of this encounter
--- OUTSIDE RECORDS SUMMARY | 2022-05-24 10:47 | XMS_ITS | Encounter Summary ---
:1955 Author Organization [facility] [place] [address] Care Team Providers Name Role Phone Violetta Sanford MD Primary Care Provider Reason for Visit Reason Comments Fever Headache Auth/Cert Specialty Diagnoses / Procedures Referred By Contact Refer red To Contact Diagnoses [place]itis [place] [address] Referral ID Status Reason Start Date Expiration Date Visits Requ ested Visits Authorized [id number] 1 1 Encounter Details Date Type Department Care Team Description 01/06/2022 - Hospital Encounter 3 [place] [address] Otitis externa 01/07/2022 [facility] [place] [address] (Primary Dx) [facility] [place] [address] [place] [address] Social History Tobacco Use Types Packs/Day Years [...] Sign Reading Time Taken Comments Blood Pressure 128/55 01/07/2022 11:07 AM EDT Pulse 67 01/07/2022 11:07 AM EDT Temperature 37 ??C (98.6 ??F) 01/07/2022 11:07 AM EDT Respiratory Rate 14 01/07/2022 11:07 AM EDT Oxygen Saturation 96% 01/07/2022 11:07 AM EDT Inhaled Oxygen Concentration - - Weight 121.1 kg (266 lb 15.6 oz) 01/07/2022 1:34 AM EDT Height 193 cm (6' 4) 01/07/2022 1:34 AM EDT Body Mass Index 32.5 01/07/2022 1:34 AM EDT documented in this encounter Discharge Summaries Lizbeth Mcrae MD - 01/07/2022 11:24 AM EDT Images from the original note were not included. Inpatient - Discharge Summary Patient Name: Leroy Torres Patient Age: 66 y.o. Birthdate: 1955 Admit date: 01/06/2022 Discharge date and time: 01/07/2022 3:12 PM Attending Physician: Lizbeth Mcrae MD FACP Discharging Physician: Lizbeth Mcrae MD FACP Follow-up Recommendations for Providers: 1. Losartan was discontinued due to hyperkalemia up to 5.8. Will need BP medication adjustment at PCP follow up and recheck potassium levels. Discharge Diagnoses (Hospital Problems) and Secondary Diagnoses (Chronic Problems): Active Hospital Problems Diagnosis ??? Otitis externa Resolved Hospital Problems No resolved problems to display. Active Non-Hospital Problems Diagnosis ??? Mixed conductive and sensorineural hearing loss [...] limb pain ??? Chronic atrial fibrillation ??? Anemia of chronic renal failure, stage 4 (severe) 10/22/21 BONE MARROW (PERIPHERAL SMEAR, ASPIRATE SMEAR, [...] ??? Prophylactic immunotherapy ??? Persistent proteinuria ??? USP current use of immunosuppressive drug ??? 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 He has been following up with ENT as an outpatient for hearing loss and was found to have a chronic middle ear effusion with an unsuccessful tympanostomy tube placement and returned to the OR for another attempt when he was suspected to have clear effusion suspicious of CSF leak. He had been scheduled as an outpatient in January however he started to have these severe symptoms which prompted him to come to the ED. He denies any tingling, numbness in the face, denies any facial asymmetry/weakness,However endorses pain on the left side with the yarsani all the way to the jaw and throat. Has had swallowing difficulty from before which is different from the current issue. Denies any dizziness, lightheadedness or vertigo. ?? In the ED he was evaluated by ENT and swabs were obtained from the ER with recommendation for IV antibiotics and pain control with likely bedside debridement tomorrow. Review of labs with a normal WBC at 6.8, hemoglobin 9.0. BMP with mild hyperkalemia up to 5.8, BUN 31, creatinine 3.1 near to baseline. Vitals with systolic hypertension, however afebrile. Hospital Course: Acute otitis media: Leroy Alexis was seen at [facility] for worsening of chronic left middle ear effusion with associated headache, purulent drainage and intermittent fevers. No concern for meningitis. He was evaluated by ENT and was started on IV cefepime and topical Ciprodex drops in L ear. Swab culture grew gram positive cocci and gram negative rods. He was transitioned to PO cefpodoxime for 10 days and Ciprodex ear drops for 10 days with follow-up in ENT clinic. On review of labs, he was found ghada hyperkalemic to 5.8. Home losartan was discontinued and follow - up with PCP recommended. Please recheck potassium early next week. The patient and family agreed with the above discharge plan and felt safe with disposition plan. Day of Discharge Exam: The patient was examined on the day of discharge. BP 128/55 (BP Location (NBP): Right arm, Patient Position: Sitting) Pulse 67 Temp 37 ??C (98.6 ??F) (Oral) Resp 14 Ht 193 cm (6' 4) Wt 121.1 kg (266 lb 15.6 oz) SpO2 96% BMI 32.50 kg/m?? Gen: well-appearing, no acute distress, interactive HEENT: normocephalic, anicteric, EOMI, nares patent, OP clear without exudates or ulcers. No drainage on L ear Neck: supple CV: JVP normal, regular rate and rhythm with normal s1/2, no murmurs, rubs, or gallops; radial and dorsalis pedis pulses are 2+ bilaterally Pulm: normal work of breathing, lungs are clear to auscultation bilaterally without focal wheezes, rales, or rhonchi Abd: soft, non-distended, non-tender to palpation with normoactive bowel sounds Ext: no cyanosis or clubbing, leg prosthetics Skin: warm, well-perfused without rashes Neuro: alert and oriented to person, place, time; moving all extremities grossly with symmetric facies, fluent language Psych: euthymic, logical thinking Important Studies and Lab Data: Labs: Recent Labs 01/06/22 1810 WBC 6.8 HGB 9.0* PLATELET 247 Recent Labs 01/06/22 1810 NA 139 K 5.8* CL 108* CO2 18* BUN 31* CREATININE 3.12* No results for input(s): AST, ALT, ALKPHOS, BILITOT, BILIDIR in the last 168 hours. Recent Labs 01/06/22 1810 CALCIUM 9.4 No results for input(s): INR, PT in the last 168 hours. Micro: Microbiology Results (Last 30 days) Procedure Component Value Units Date/Time Ear culture Middle Ear Fluid; Ear, Left [[id number]] (Abnormal) Collected: 01/06/222149 Lab Status: Preliminary result Specimen: Middle Ear Fluid from Ear, Left Updated: 01/06/222246 Gram Stain -- Moderate Neutrophils seen Rare Gram Positive Cocci seen Rare Gram Positive Rods seen COVID-19 PCR [[id number]] Collected: 01/06/222149 Lab Status: Final result Specimen: Nasopharyngeal Swab Updated: 01/07/22 0032 SARS-CoV-2 RNA PCR Not Detected Comment: This result should be interpreted in combination with the clinical observations, patient history and epidemiological information. For testing of asymptomatic individuals, assay performance characteristics and clinical utility have not been evaluated. Testing for SARS-CoV-2 (Severe acute respiratory syndrome coronavirus 2, formerly known as 2019 novel coronavirus or 2019-nCoV) to aid in the diagnosis of COVID-19 is performed using the Simplexa COVID-19 Direct Assay by [employer] as authorized by the FDA issued Emergency Use Authorization (EUA). This assay is intended for In-vitro Diagnostic (IVD) use with nasopharyngeal swabs collected from individuals meeting the CDC criteria for testing. The assay is performed based on the instructions for use and additional guidance provided by the FDA. Testing is performed in the Microbiology Laboratory within the Department of Pathology and Laboratory Medicine at [facility], certified under the Clinical Laboratory Improvement Amendments of 1988 (CLIA), 42 U.S.C. section 263a, to perform high complexity tests. Assay performance has been verified according to clinical laboratory regulatory requirements. Test results are provided above. A result of Not Detected indicates that the viral RNA target is not present but does not preclude SARS-CoV-2 infection. False negative results may occur if a specimen is improperly collected, transported or handled; if amplification inhibitors are present; or if inadequate numbers of viral particles are present in the specimen. A result of Detected suggests a current or recent infection and the patient is presumed to be infected. Positive and negative predictive values for this test are highly dependent on disease prevalence. A result of Invalid indicates the inability to conclusively determine the presence or absence of SARS-CoV-2 RNA in the sample which can be due to a variety of factors. Recollection is recommended in the case of an invalid result. CDC COVID-19 criteria for testing on human specimens and clinical management guidance information are available at the CDC Coronavirus Disease 2019 (COVID-19) webpage under Information for Healthcare Professionals (https://www.cdc.gov/coronavirus/2019-ncov/hcp/index.html). Additional information about this and other EUA tests can be found in provider and patient fact sheets at the following FDA website: https://www.fda.gov/medical-devices/jdcxqgbvxhj-lxuaxtu-0757-ytqdd-67-qaztnjusy- oyc-dayqvuheebdzsd-vmooaax-devices/ufcqw-yfxinlxxilu-xlja SARS-CoV-2 Source BOAT LOADER Swab Studies: Results for orders placed or performed during the hospital encounter of 01/06/22 CT Temporal Bone wo Contrast (Generic) (Exam End: 01/06/2022 7:25 PM) Impression Left mastoid effusion and complete opacification of the left middle ear cavity with concern for early cortical erosion involving the posterior lateral margin of the external canal as described above. Otherwise no aggressive osseous changes. Thank you for letting us participate in the care of this patient. If you are a health care provider and have any questions regarding this report, please contact the number below. For patients who have questions please contact the health healthcare administrative assistant that requested your imaging first. Electronically signed by: Angel Harkins [facility] ([phone]), at 01/06/2022 7:36 PM Pending Studies and Lab Data: Culture from left ear drainage Discharge Condition: Upon discharge the pt is hemodynamically stable, afebrile, fully ambulatory without, not requiring supplemental oxygen, holding down food/drink, and pain controlled with stable oral regimen. Prognosis: good Discharge to: home Discharge Medications: Your Medications New Medications Dose Details cefPODOXime 200 mg Tab Commonly known as: Vantin Take 1 tablet by mouth 2 times daily for 10 days. 200 mg Quantity: 20 tablet Refills: 0 ciprofloxacin-dexAMETHasone 0.3-0.1 % Drps Commonly known as: Ciprodex Place 4 drops into the left ear 2 times daily. Please use for 10 days. 4 drop Quantity: 7.5 mL Refills: 0 oxyCODONE 5 mg Tab Commonly known as: Roxicodone Take 1 tablet by mouth every 4 hours as needed for Pain for up to 3 days. 5 mg Quantity: 18 tablet Refills: 0 Continued medications, unchanged Dose Details acetaminophen 325 mg Tab Commonly known as: Tylenol Take 650 mg by mouth every 4 hours as needed for Pain. Reported on 08/06/2016 650 mg Refills: 0 albuteroL 2.5 mg /3 mL (0.083 %) Nebu Commonly known as: Proventil Take 3 mLs by nebulization every 4 hours as needed for Wheezing. 2.5 mg Quantity: 90 mL Refills: 3 amLODIPine 10 mg Tab Commonly known as: Norvasc Take 0.5 tablets by mouth daily. 5 mg Quantity: 90 tablet Refills: 3 Anoro Ellipta 62.5-25 mcg/actuation Dsdv Inhale into the lungs daily. Generic drug: umeclidinium-vilanteroL Refills: 0 aspirin EC 81 mg Tbec Take 81 mg by mouth daily. 81 mg Refills: 0 atorvastatin 20 mg Tab Commonly known as: Lipitor Take 1 tablet by mouth daily. 20 mg Quantity: 90 tablet Refills: 3 * BD Ultra-Fine Orig Pen Needle 29 gauge x 1/2 Ndle Generic drug: insulin needles (disposable) Refills: 0 * insulin needles (disposable) 29 gauge x 1/2 Ndle 1 Device by [facility]Non-Drug; Combo Route) route 3 times daily. 1 Device Quantity: 100 each Refills: 3 CellCept 250 mg Cap TAKE 2 CAPSULES BY MOUTH 2 TIMES DAILY Generic drug: mycophenolate Quantity: 120 capsule Refills: 5 cholecalciferol (Vitamin D3) 50 mcg (2,000 unit) Tab Take 1 tablet by mouth daily. 2,000 Units Quantity: 90 tablet Refills: 3 cyanocobalamin (Vitamin B-12) 100 mcg Tab Commonly known as: Vitamin B-12 Take 100 mcg by mouth daily. 100 mcg Refills: 0 darbepoetin cristy in polysorbat 10 mcg/0.4 mL Syrg Commonly known as: Aranesp (in polysorbate) Inject 300 mg as directed as needed. 300 mg Refills: 0 Dexcom G6 Sensor Danielle by [facility].(Non-Drug; Combo Route) route. 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 2,000 mcg Quantity: 180 tablet Refills: 3 * FreeStyle Gilberto 14 Day Sensor Kit 1 each by [facility].(Non-Drug; Combo Route) route every 14 days. Use to continuously monitor blood glucose. Scan at least 5 times per day. DX: E11.65 Generic drug: flash glucose sensor 1 each Quantity: 6 kit Refills: 3 * FreeStyle Gilberto 2 Sensor Kit 1 each by [facility].(Non-Drug; Combo Route) route every 14 days. Use to continuously monitor blood glucose. Scan at least 4 times per day. Generic drug: flash glucose sensor 1 each Quantity: 6 kit Refills: 3 FreeStyle Gilberto 2 Elizabeth [facility] Use to continuously monitor blood glucose. Scan at least 5 times per day. Generic drug: flash glucose scanning reader Quantity: 1 each Refills: 0 guaiFENesin ER 600 mg Ta12 Commonly known as: Mucinex Take 1,200 mg by mouth 2 times daily. 1,200 mg Refills: 0 hydrALAZINE 100 mg Tab Commonly known as: Apresoline Take 1 tablet by mouth 3 times daily. 100 mg Quantity: 270 tablet Refills: 2 insulin aspart U-100 100 unit/mL Crtg Commonly known as: NovoLOG Inject 10-25 Units subcutaneously 2 times daily. Sliding scale 10-25 Units Refills: 0 ipratropium-albuteroL 0.5 mg-3 mg(2.5 mg base)/3 mL Nebu Commonly known as: Duoneb Inhale into the lungs. Refills: 0 Levemir FlexTouch U-100 Insuln 100 unit/mL (3 mL) Inpn Inject 50-80 Units subcutaneously 2 times daily. ICD 10 Code: E11.40 Generic drug: insulin detemir U-100 50-80 Units Quantity: 45 mL Refills: 11 liraglutide 0.6 mg/0.1 mL (18 mg/3 mL) Pnij Commonly known as: Victoza 3-Fazal Inject 1.2 mg subcutaneously daily. 1.2 mg Quantity: 6 mL Refills: 11 metoprolol succinate XL 50 mg Tablet sr Commonly known as: Toprol-XL Take 1 tablet by mouth daily. 50 mg Quantity: 90 tablet Refills: 1 Miscellaneous Medical Supply [facility] 4 Devices by [facility].(Non-Drug; Combo Route) route daily. Rubber sheath for leg prosthesis (2 pairs) 4 Device Quantity: 4 each Refills: PRN montelukast 10 mg Tab Commonly known as: Singulair Take 10 mg by mouth daily. 10 mg Refills: 0 multivitamin with minerals Tab Commonly known as: One-A-Day Take 1 tablet by mouth Daily. 1 tablet Refills: 0 omeprazole 40 mg Cpdr Commonly known as: PriLOSEC Take 1 capsule by mouth daily. 40 mg Quantity: 90 capsule Refills: 3 primidone 50 mg Tab Commonly known as: Mysoline Take 1 tablet by mouth 4 times daily. 50 mg Quantity: 120 tablet Refills: 3 * Prograf 0.5 mg Cap TAKE 1 CAPSULE BY MOUTH NIGHTLY. Generic drug: tacrolimus Quantity: 30 capsule Refills: 5 * Prograf 1 mg Cap TAKE 1 CAPSULE BY MOUTH DAILY Generic drug: tacrolimus Quantity: 30 capsule Refills: 5 * This list has 6 medication(s) that are the same as other medications prescribed for you. Read thedirections carefully, and ask your doctor or other care provider to review them with you. STOPPED Medications losartan 25 mg Tab Commonly known as: Cozaar Updated Allergies/ADRs: Allergies Allergen Reactions ??? Iftikhar Inhibitors Cough ??? Clindamycin Hcl Rash ??? Allergenic Extracts Birch and Nut Trees, cats, dust, pollen bird feathers ??? Penicillins Tolerated cefepime 01/07 ??? Sulfamethoxazole-Trimethoprim Instructions Given to Patient at Discharge: Patient Instructions Instructions on Discharge to Home Why you were hospitalized - You were admitted to the hospital with otitis media (ear infection) Call your doctor or seek medical attention if you develop the following - chest pain, shortness of breath, fever, cough, weakness in an arm or leg Activity level - no restrictions, but take it easy for a few days Diet - no change in previous diet Driving - as before hospitalization. Please do not drive while on narcotics Shower/Bath - permitted Wound Care - none Home Oxygen therapy - none Changes in Your Medications: Start the following medications: 1. cefPODOXime 200mg. Take 1 tablet two times daily for 10 days. 2. Ciprofloxacin-dexAMETHasone (Ciprodex) 0.3-0.1% Drops suspension. Place 4 drops into the left eartwo times daily 3. Oxycodone 5mg. Take one tablet by mouth every 4 hours as needed for Pain for up to 3 days. 4. Over the counter Throat lozenges Stop takin. Losartan (Cozaar) 25mg tablet until your PCP tells you to restart it. You will need to get more blood work to ensure your potassium level has normalized Follow up appointments: 01/15 at 10am with your PCP Your inpatient doctor: Lizbeth Mcrae MD FACP For questions regarding this document or issues relating to this hospitalization on the Medical Service, please contact your inpatient physician through the [facility] [place] . Issues after hours and on weekends will be handled by the Hospitalist staff on-call. General Instructions Instructions for Patient at Discharge: PCP follow up on 01/15 at 10:40am What to expect: You will have continues to have drainage, which will improve with antiibotics. Antibiotics - take the antibiotics as prescribed. Apply 4 drops of the antibiotics drops in the left ear, twice per day. Activity: A good rule of thumb is if it hurts don't do it. Keep your head elevated when lying flat. No heavy lifting or straining for the next week. No smoking, this is important for wound healing. You should call your doctor if you develop: -New facial weakness or increased difficulty swallowing -Increasing pain and redness -Increasing drainage from the wound -Fever > 38.5Celsius or 101 Fahrenheit -Bleeding Contact: -You can reach the ENT clinic at [phone] for appointment questions. -The ENT triage nurse is available at [phone] -For urgent issues during evenings (5 PM - 7 AM) and weekends the ENT resident microphone boom operator can be reached through the main hospital aging room operator at [phone] Follow Up: You will need to follow up with Dr. Scott or an associate provider in one week. This appointment has been requested. You will be notified once it is scheduled, if you do not already see it below. If youdo not hear from us in a timely manner, please call to receive your date and time. Currently Scheduled Appointments and VNA instructions: Future Appointments and Orders Future Appointments and Orders Future Appointments Provider Department Dept Phone 01/13/2022 10:00 AM [facility] INFUSION, ROOM Hematology Oncology at [facility] Arrive at: [facility] door at end of hallway [phone] 01/13/2022 11:00 AM Margaret Purvis APRN Hematology/Oncology at [facility] Arrive at: [facility] door at end of hallway [phone] 01/21/2022 11:00 AM Donell Hernandez MD Endocrinology at [facility] [place]rive at: [facility] [employer] [facility] Area 3A [phone] 01/27/2022 4:00 PM Patti Sanchez AUD; AUDIOLOGY, VERONICA TWO Audiology at [facility] [place]rive at: [facility] [employer] [facility] Area 4F [phone] 01/27/2022 4:40 PM Iraj cSott MD Otol[place]ology at [facility] [place]rive at: [employer] Area 4F [phone] 02/16/2022 3:00 PM Shira Ramírez APRN Gastroenterology at [facility] [place]rive at: [employer] Manager Area 06/21/2022 11:00 AM Shivam Rojas MD Neurology at [facility] [place]rive at: [employer] Area [phone] YOU ARE SCHEDULED FOR A FOLLOW UP APPOINTMENT WITH YOUR PRIMARY CARE PROVIDER, DR VIOLETTA SANFORD, ON 01/15/2022 AT 10:40PM Future Appointments and Orders Future Appointments and Orders Future Appointments Provider Department Dept Phone 01/13/2022 10:00 AM [facility] INFUSION, ROOM Hematology Oncology at [facility] Arrive at: [facility] door at end of hallway [phone] 01/13/2022 11:00 AM Margaret Purvis APRN Hematology/Oncology at [facility] Arrive at: [facility] door at end of hallway [phone] 01/21/2022 11:00 AM Donell Hernandez MD Endocrinology at [facility] [place]rive at: [facility] [facility] Area 3A [phone] 01/27/2022 4:00 PM Patti Sanchez, WENDI; AUDIOLOGY, VERONICA TWO Audiology at [facility] [place]rive at: [employer] Area [phone] 01/27/2022 4:40 PM Iraj Scott MD Otolaryngology at [facility] Arrive at: G[employer] Manager Area 4F [phone] 02/16/2022 3:00 PM Shira Ramírez APRN Gastroenterology at [facility] Arrive at: Grooming Sal[employer] Manager Area 4L [phone] 06/21/2022 11:00 AM Shivam Rojas MD Neurology at [facility] Arrive at: [facility] [facility] Area 3C [phone] Discharge References/Attachments: Discharge References/Attachments None Inpatient Provider Contact Information: For questions regarding this document or issues relating to this hospitalization on the Medical Service, please contact your inpatient physician through the [facility] [place] Therapist . Issues after hours and on weekends will be handled by the Hospitalist on-call. Electronically Signed By: Lizbeth Mcrae MD [facility] 01/07/2022 documented in this encounter Discharge Instructions Discharge InstructionsReanna Otto RN - 01/07/2022 7:58 AM EDT Instructions for Patient at Discharge: PCP follow up on 01/15 at 10:40am What to expect: You will have continues to have drainage, which will improve with antiibotics. Antibiotics - take the antibiotics as prescribed. Apply 4 drops of the antibiotics drops in the left ear, twice per day. Activity: A good rule of thumb is if it hurts don't do it. Keep your head elevated when lying flat. No heavy lifting or straining for the next week. No smoking, this is important for wound healing. You should call your doctor if you develop: -New facial weakness or increased difficulty swallowing -Increasing pain and redness -Increasing drainage from the wound -Fever > 38.5Celsius or 101 Fahrenheit -Bleeding Contact: -You can reach the ENT clinic at [phone] for appointment questions. -The ENT triage nurse is available at [phone] -For urgent issues during evenings (5 PM - 7 AM) and weekends the ENT resident microphone boom operator can be reached through the main hospital aging room operator at [phone] Follow Up: You will need to follow up with Dr. Scott or an associate provider in one week. This appointment has been requested. You will be notified once it is scheduled, if you do not already see it below. If youdo not hear from us in a timely manner, please call to receive your date and time. Currently Scheduled Appointments and VNA instructions: Future Appointments and Orders Future Appointments and Orders Future Appointments Provider Department Dept Phone 01/13/2022 10:00 AM [facility], [facility] Hematology Oncology at [facility] Arrive at: [facility] door at end of hallway [phone] 01/13/2022 11:00 AM Margaret Purvis APRN Hematology/Oncology at [facility] Arrive at: [facility] door at end of hallway [phone] 01/21/2022 11:00 AM Donell Hernandez MD [place]ology [place] [facility] at: [facility] Area 3A [phone] 01/27/2022 4:00 PM Patti Sanchez, AUD; [facility], [facility] [place] [facility] [place] at: [facility] Area 4F [phone] 01/27/2022 4:40 PM Iraj Scott MD Otol[place]ology at [facility] [place] [place]rive at: [facility] Area 4F [phone] 02/16/2022 3:00 PM Shira Ramírez APRN Gastroenterology at [facility] [place]rive at: [facility] Area 4L [phone] 06/21/2022 11:00 AM Shivam Rojas MD Neurology at [facility] [place] [place]rive at: [facility] [employer] [facility] Area 3C [phone] YOU ARE SCHEDULED FOR A FOLLOW UP APPOINTMENT WITH YOUR PRIMARY CARE PROVIDER, DR VIOLETTA SANFORD, ON 01/15/2022 AT 10:40PM Patient InstructionsNellie Castañeda - 01/07/2022 8:38 AM EDT Instructions on Discharge to Home Why you were hospitalized - You were admitted to the hospital with otitis media (ear infection) Call your doctor or seek medical attention if you develop the following - chest pain, shortness of breath, fever, cough, weakness in an arm or leg Activity level - no restrictions, but take it easy for a few days Diet - no change in previous diet Driving - as before hospitalization. Please do not drive while on narcotics Shower/Bath - permitted Wound Care - none Home Oxygen therapy - none Changes in Your Medications: Start the following medications: cefPODOXime 200mg. Take 1 tablet two times daily for 10 days. Ciprofloxacin-dexAMETHasone (Ciprodex) 0.3-0.1% Drops suspension. Place 4 drops into the left ear two times daily Oxycodone 5mg. Take one tablet by mouth every 4 hours as needed for Pain for up to 3 days. Over the counter Throat lozenges Stop taking: Losartan (Cozaar) 25mg tablet until your PCP tells you to restart it. You will need to get more blood work to ensure your potassium level has normalized Follow up appointments: 01/15 at 10am with your PCP Your inpatient doctor: Lizbeth Mcrae MD FACP For questions regarding this document or issues relating to this hospitalization on the Medical Service, please contact your inpatient physician through the [facility] Occup Therapist . Issues after hours and on weekends will be handled by the Hospitalist staff on-call. documented in this encounter Medications at Time [...] Use to continuously 1 each 0 2 Elizabeth Misc monitor blood glucose. Scan at least [...] 6 kit 3 01/13/2021 Day Sensor Kit Mis.(Non-Drug; Combo Route) route every 14 days. Use to continuously monitor blood glucose. Scan at least 5 times per day. DX: E11.65 darbepoetin cristy in Inject 300 mg as 0 polysorbat 10 mcg/0.4 directed as needed. mL Syringe cyanocobalamin, Take 100 mcg by mouth 0 Vitamin B-12, daily. (Vitamin B-12) 100 mcg Tablet Blood-Glucose Sensor by [facility]Non-Drug; 0 (Dexcom G6 Sensor) Combo Route) route. Device Sensor, scalping machine operator andtransmitter metoprolol succinate Take 1 tablet by mouth 90 tablet 1 04/2020 XL (Toprol-XL) 50 mg daily. Tablet Sustained Release 24 hr amLODIPine (Norvasc) Take 0.5 tablets by 90 tablet 3 2019 10 mg Tablet mouth daily. fluticasone INSTILL 2 SPRAYS INTO 0 09/06/2019 propionate (FLONASE) EACH NOSTRIL ONCE A 50 mcg/actuation DAY NEEDED [place], Suspension multivitamin with Take 1 tablet by [...] 100 each 3 03/09/2017 disposable, 29 gauge Mis.(Non-Drug; Combo x [...] by 4 each 0 12/02/2015 Supply [facility].(Non-Drug; Combo MiscIndications: S/P Route) route daily. bilateral [...] 10/202105/04/2022 50 mg Tablet 4 times daily. cefPODOXime (Vantin) Take 1 tablet by mouth 20 tablet 0 01/17/2022 200 mg Tablet 2 times daily for 10 days. oxyCODONE Take 1 tablet by mouth 18 tablet 0 01/07/2022 (Roxicodone) 5 mg every 4 hours as Tablet needed for Pain for up to [address] days[address] ciprofloxacin-dexAMET Place 4 drops into the 7.5 mL 0 02/09/2022 Hasone (Ciprodex) left ear 2 times 0.3-0.1 % Drops, daily. Please use for Suspension 10 days. CellCept 250 mg TAKE 2 CAPSULES BY [...] documented as of this encounter Progress Notes Lizbeth Mcrae MD - 01/07/2022 3:04 PM EDT Hospital Medicine - Attending Day of Discharge Documentation Discharge diagnosis Active Hospital Problems Diagnosis ??? Otitis externa Resolved Hospital Problems No resolved problems to display. Secondary Issues Active Non-Hospital Problems Diagnosis ??? Mixed conductive and sensorineural hearing loss of left ear with restricted hearing of right ear ??? Other complication of kidney transplant ??? Immunocompromised state due to drug therapy ??? Essential hypertension ??? Renal osteodystrophy ??? Other postherpetic nervous system involvement ??? Renal tubular acidosis ??? Hypervolemia ??? PAF (paroxysmal atrial fibrillation) ??? Phantom limb pain ??? Chronic atrial fibrillation ??? Anemia of chronic renal failure, stage 4 (severe) ??? Prophylactic immunotherapy ??? Persistent proteinuria ??? long term care pharmacist current use of immunosuppressive drug ??? Aftercare following organ transplant ??? Hyperlipidemia ??? Reflux esophagitis ??? COPD (chronic obstructive pulmonary disease) ??? Hydrocele ??? Lower urinary tract symptoms ?Appendicitis, sp appendectomy 06/16/13 ??? Intermittent fever of unknown origin ??? Tremor/tics ??? Hyperglycemia ??? Immunosuppression ??? H/O kidney transplant ??? History of renal transplant ??? Amputee, below knee ??? Delayed wound healing ??? Sensorineural hearing loss, bilateral ??? Tremor, essential ??? Injury, other and unspecified, unspecified site ??? Diabetes mellitus with neuropathy ??? Charcot's arthropathy, diabetic, R ??? Amputee, below knee, L ??? 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ifestations I have personally seen and examined the patient and they are ready for discharge. I spent >30 minutes involved in the final examination of the patient, discussion of the hospital stay, instructions for continuing care to all relevant caregivers, and preparation of discharge records, prescriptions and referral forms. Plans ? Discharge to home ? Follow-up scheduled with PCP and ENT ? Please see the Discharge Summary for complete details of any medication changes and additional plans. Lizbeth Mcrae MD [facility] Ellyn Cobian MD - 01/07/2022 7:52 AM EDT Patient Name: Leroy Torres Patient Age: 66 y.o. Birthdate: 1955 Admit date: 01/06/2022 Attending Physician: Lizbeth Mcrae MD OTOLARYNGOLOGY - HEAD & NECK SURGERY Progress Note Name: Leroy Torres Age/Sex: 66 y.o. male ENT Attending: Leslie Hospital Day: 2 History of Present Illness We are seeing Leroy Torres today at the request of Dr. Lizbeth Mcrae MD regarding ear pain . Leroy Torres is a 66 y.o. male with PMH renal transplant (~ 16 years ago) on immunosuppression, DM, MELISSA (not using CPAP due to intolerance), reflux who presented with 3 day history of acute severe left sided ear pain, purulent drainage and fevers. In detail, patient seen in ENT clinic in October 2021 for hearing loss. Seen by outside ENT and noted to have chronic middle ear effusion and narrow EAC.Underwent attempted tympanostomy tube placement which was unsuccessful due to narrowed canal, but myringotomy did result in thick inspissated mucoid effusion. He was offered canal plasty and associated myringotomy with tube placement but he declined and presented for secondary consultation at [facility] [place] Myringotomy was performed in office with mucoid effusion encountered, tube not placed due to challenging EAC anatomy. Patient then returned to OR on 12/29/21 for tube placement. Findings in OR included the following: Left ear with posterior inferior bulging tympanic membrane with middle ear effusion. Drum intact. Following posterior inferior myringotomy, scant mucoid effusion encountered followed by clear persistent watery discharge with persistent pulsations. Clear effusion suspect for CSF. Aspirate obtained with tymp trap with specimen sent for beta-2 transferrin. Insertion of tympanostomy tube deferred in context of intraoperative findings. Beta transferrin resulted as negative. Patient was scheduled for FU in ENT clinic in January. However, in the past few days patient has developed severed left sided headaches, ear pain, purulent dischargeand associated throat pain. He noted on and off fevers as well. He has required opioids for his headaches. He has a baseline difficulty swallowing which has not worsened (scheduled to see speech therapist later this month). He denies any new facial weakness, difficulty with speech, worsening difficulty swallowing or other neurological deficits. He denies vision changes, any new dizziness or vertigo. Interval History Pain improved overnight VSS, afebrile Continues to have purulent drainage from left ear. No new neurological deficits Review of Systems Pertinent positive findings discussed above. No other findings on review of constitutional, visual, cardiovascular, respiratory, gastrointestinal, genitourinary, musculoskeletal, dermatologic, neurological, psychiatric, endocrine, hematologic or immunologic systems. Problem List Patient Active Problem List Diagnosis Code ??? [...] COPD (chronic obstructive pulmonary disease) J44.9 ??? USP current use of immunosuppressive drug Z79.899 ??? [...] of right earH90.A32 ??? Otitis externa H60.90 Past Medical History No past medical history on file. Past Surgical History Past Surgical History: Procedure Laterality Date [...] Biopsy Bone Marrow 10/22/2021 Richar Lo MD [facility] RAD CT SCAN ??? PRO AMPUTATION LOW LEG THRU TIB/FIB 06/21/2011 ??AMPUTATION, BELOW-KNEE performed by HENNA GAMINO JR at [facility] MAIN OR ??? PRO INCISION EARDRUM,ASPIR Left 12/29/2021 MYRINGOTOMY ASPIRATION OF MIDDLE EAR (WRVU 1.38) performed by Iraj Scott MD at [facility] MAIN OR ??? PRO LAP, APPENDECTOMY 06/16/2013 LAPAROSCOPIC APPENDECTOMY performed by Angel Mccann MD at [facility] MAIN OR ??? PRO MICROSURG TECHNIQUES, REQ OPER MICROSCOPE Left 12/29/2021 MICROSCOPE USE (WRVU 3.46) performed by Iraj Scott MD at [facility] MAIN OR ??? US RENAL TRANSPLANT LEFT Left 06/26/2019 US Renal Transplant Left 06/26/2019 [facility] RAD ULTRASOUND Medications & Allergies No current facility-administered medications on file prior to encounter. Current Outpatient Medications on File Prior to Encounter Medication Sig Dispense Refill ??? guaiFENesin ER [...] BY MOUTH DAILY 30 capsule 5 ??? losartan (Cozaar) 25 mg Tablet TAKE ONE TABLET BY MOUTH EVERY DAY 90 tablet 1 ??? FreeStyle Gilberto 2 Sensor Kit 1 each by [facility].(Non-Drug; Combo Route) route every 14 days. Use to continuously monitor blood glucose. Scan at least 4 times per day. 6 kit 3 ??? FreeStyle Gilberto 2 Elizabeth [facility] Use to continuously monitor blood glucose. Scan [...] 14 Day Sensor Kit 1 each by [facility].(Non-Drug; Combo Route) route every 14 days. Use to continuously monitor blood glucose. Scan at least 5 times per day. DX: E11.65 6 kit 3 ??? darbepoetin cristy in polysorbat 10 mcg/0.4 mL Syringe Inject 300 mg as directed as needed. ??? cyanocobalamin, Vitamin B-12, (Vitamin B-12) 100 mcg Tablet Take 100 mcg by mouth daily. ??? Blood-Glucose Sensor (Dexcom G6 Sensor) Device by [facility].(Non-Drug; Combo Route) route. 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 metoprolol succinate XL (Toprol-XL) 50 mg Tablet Sustained Release 24 hr Take 1 tablet by mouth daily. 90 tablet 1 ??? amLODIPine (Norvasc) 10 mg Tablet Take 0.5 tablets by mouth daily. 90 tablet 3 ??? fluticasone propionate (FLONASE) 50 mcg/actuation [place], Suspension INSTILL 2 SPRAYS INTO EACH NOSTRIL [...] gauge x 1/2 Needle 1 Device by [facility].(Non- Drug; Combo Route) route 3 times daily. [...] Reported on 08/06/2016 ??? Miscellaneous Medical Supply [facility] 4 Devices by [facility].(Non-Drug; Combo Route) route daily. Rubber sheath for leg prosthesis (2 pairs) 4 each PRN ??? BD INSULIN PEN NEEDLE UF ORIG 29 gauge x 1/2 Needle 0 ??? aspirin 81 mg EC tablet Take 81 mg by mouth daily. Penicillins, Iftikhar inhibitors, Clindamycin hcl, Allergenic extracts, Ibuprofen, and Sulfamethoxazole-trimethoprim Social History [place] [facility] [id number] Social History Socioeconomic History ??? Marital status: Spouse name: Not on file ??? Number of children: Not on file ??? Years of education: Not on file ??? Highest education level: Not on file Occupational History ??? Not on file Tobacco Use ??? Smoking status: Former Smoker Packs/day: 2.00 Years: 20.00 Pack years: 40.00 Types: Cigarettes Quit date: 01/19/1993 Years since quittin.9 ??? Smokeless tobacco: Never Used Vaping Use [...] on file Housing Stability: Not on file Family History No family history on file. Vitals Last value 24hr Range Temperature: 36.8 ??C (98.3 ??F) Temp: [36.8 ??C (98.3 ??F)-37.1 ??C (98.8 ??F)] Heart Rate: 69 Heart Rate: [69-77] Blood Pressure: 151/60 BP: (146-171)/(60-80) Respiratory Rate: 16 Resp: [15-20] SpO2: 97 % SpO2: [95 %-99 %] Physical Exam General: NAD, appears very uncomfortable, holding left ear. Face: Symmetric without dysmorphic features. Eyes: EOMI, conjunctiva healthy Ears: Left external ear mildly tender to light palpation/manipulation, no post auricular tenderness,erthythema or swelling. EAC is narrowed, mildly edematous with purulent drainage noted in canal. TM partially visualized, no obvious effusion noted. Right Ear: EAC clear with mild narrowing. Drum is intact with normal mobility via pneumatic otoscopy. Middle ear is well aerated. Nose: Patent nares, grossly normal appearance Oral Cavity/Pharynx: Mucosa is pink, oropharynx symmetric Neck: Soft, trachea midline Chest: Unlabored breathing, regular rate Neuro: Alert & oriented, moving extremities x 4. CN II-XII grossly intact. Procedures NA Labs Recent Labs 01/06/22 1810 WBC 6.8 HGB 9.0* HCT 29.9* PLATELET 247 NA 139 K 5.8* CL 108* CO2 18* BUN 31* CREATININE 3.12* GLUCOSE 146 CALCIUM 9.4 ASSESSMENT & RECOMMENDATIONS Leroy Torres is a 66 y.o. male with PMH renal transplant on lifelong immunosuppression, DM, chronic effusion of L middle ear who presents with three day history of worsening left ear pain, purulentdrainage, fevers. Temporal bone scan obtained which shows possible early cortical erosion along lateral posterior margin of external canal. This likely represents an acute otitis media. No clinical concern for malignant otitis externa/psueodomonal infection at this time. Recommendations: 1. Ok for DC on PO antibiotics (I.e. cephalosporin given penicillin allergy - 10 days) and Ciprofloxacin drops (4 drops, BID in left ear) + home pain regimen per primary team. 2. Will plan to have patient follow up in ENT clinic in ~ 1 week (referral placed). 3. Ok for regular diet this AM. __ Ellyn Cobian MD, PGY-3, Pager [phone] 01/07/22 7:52 AM ENT Team Pager: [phone] documented in this encounter H&P Notes Dusty Haque MD - 01/06/2022 9:39 PM EDT Inpatient Hospital Medicine - Admission Note Problem List: There are no hospital problems to display for this patient. Active Non-Hospital Problems Diagnosis ??? Mixed conductive and sensorineural hearing loss of left ear with restricted hearing of right ear ??? Other complication of kidney transplant ??? Immunocompromised state due to drug therapy ??? Essential hypertension ??? Renal osteodystrophy ??? Other postherpetic nervous system involvement ??? Renal tubular acidosis ??? Hypervolemia ??? PAF (paroxysmal atrial fibrillation) ??? Phantom limb pain ??? Chronic atrial fibrillation ??? Anemia of chronic renal failure, stage 4 (severe) ??? Prophylactic immunotherapy ??? Persistent proteinuria ??? long term care pharmacist current use of immunosuppressive drug ??? Aftercare following organ transplant ??? Hyperlipidemia ??? Reflux esophagitis ??? COPD (chronic obstructive pulmonary disease) ??? Hydrocele ??? Lower urinary tract symptoms ?Appendicitis, sp appendectomy 06/16/13 ??? Intermittent fever of unknown origin ??? Tremor/tics ??? Hyperglycemia ??? Immunosuppression ??? H/O kidney transplant ??? History of renal transplant ??? Amputee, below knee ??? Delayed wound healing ??? Sensorineural hearing loss, bilateral ??? Tremor, essential ??? Injury, other and unspecified, unspecified site ??? Diabetes mellitus with neuropathy ??? Charcot's arthropathy, diabetic, R ??? Amputee, below knee, L ??? 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ifestations ID: 66 y.o. 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 He has been following up with ENT as an outpatient for hearing loss and was found to have a chronic middle ear effusion with an unsuccessful tympanostomy tube placement and returned to the OR for another attempt when he was suspected to have clear effusion suspicious of CSF leak. He had been scheduled as an outpatient in January however he started to have these severe symptoms which prompted him to come to the ED. He denies any tingling, numbness in the face, denies any facial asymmetry/weakness,However endorses pain on the left side with the yarsani all the way to the jaw and throat. Has had swallowing difficulty from before which is different from the current issue. Denies any dizziness, lightheadedness or vertigo. In the ED he was evaluated by ENT and swabs were obtained from the ER with recommendation for IV antibiotics and pain control with likely bedside debridement tomorrow. Review of labs with a normal WBC at 6.8, hemoglobin 9.0. BMP with mild hyperkalemia up to 5.8, BUN 31, creatinine 3.1 near to baseline. Vitals with systolic hypertension, however afebrile. Review of Systems: Review of Systems 10 point ROS is negative except above Past Medical and Surgical History: PMH, PSH, FH, SH reviewed No past medical history on file. Past [...] Biopsy Bone Marrow 10/22/2021 Richar Lo MD [facility] RAD CT SCAN ??? PRO AMPUTATION LOW LEG THRU TIB/FIB 06/21/2011 ??AMPUTATION, BELOW-KNEE performed by HENNA GAMINO JR at [facility] MAIN OR ??? PRO INCISION EARDRUM,ASPIR Left 12/29/2021 MYRINGOTOMY ASPIRATION OF MIDDLE EAR (WRVU 1.38) performed by Iraj Scott MD at [facility] MA[facility] OR ??? PRO LAP, APPENDECTOMY 06/16/2013 LAPAROSCOPIC APPENDECTOMY performed by Angel Mccann MD at [facility] MAIN OR ??? PRO MICROSURG TECHNIQUES, REQ OPER MICROSCOPE Left 12/29/2021 MICROSCOPE USE (WRVU 3.46) performed by Iraj Scott MD at [facility] MAIN OR ??? US RENAL TRANSPLANT LEFT Left 06/26/2019 US Renal Transplant Left 06/26/2019 [facility] RAD ULTRASOUND Prior To Admission Medications: (Not in a hospital admission) Allergies: Allergies Allergen Reactions ??? Penicillins Anaphylaxis ??? Iftikhar Inhibitors Cough ??? Clindamycin Hcl Rash ??? Allergenic Extracts Birch and Nut Trees, cats, dust, pollen bird feathers ??? Ibuprofen ??? Sulfamethoxazole-Trimethoprim Family History: No family history on file. Social History and Habits: Social History Socioeconomic History ??? Marital status: Spouse name: Not on file ??? Number of children: Not on file ??? Years of education: Not on file ??? Highest education level: Not on file Occupational History ??? Not on file Tobacco Use ??? Smoking status: Former Smoker Packs/day: 2.00 Years: 20.00 Pack years: 40.00 Types: Cigarettes Quit date: 01/19/1993 Years since quittin.9 ??? Smokeless tobacco: Never Used Vaping Use [...] on file Housing Stability: Not on file Immunizations: Immunization History Administered Date(s) Administered ??? Hepatitis B Vaccine, unspecified formulation 08/20/2004, 09/28/2004, 03/01/2005 ??? Influenza PF, Split 05/13/2016 ??? Influenza Vaccine, High Dose Quadrivalent PF 10/05/2021 ??? Influenza Vaccine, Whole 05/19/2005, 06/25/2008 ??? Moderna Covid-19 Vaccine (100mcg/0.5ml) 10/20/2020, 11/17/2020, 03/19/2021 ??? Pneumococcal Conjugate (13 Valent) 07/09/2015 ??? Pneumococcal Polyvalent 23 12/20/1996, 02/10/2007, 02/23/2012, 03/21/2019 ??? Td, adult 06/24/1990 ??? Tdap Vaccine 07/13/2013 Physical Exam: Last Set of Vitals and range of vitals over past 24 hours: Last value Range last 24 hrs Temperature Temp: 37.1 ??C (98.8 ??F) Temp: [37.1 ??C (98.8 ??F)] Heart Rate Heart Rate: 76 Heart Rate: [76] Blood Pressure BP: 171/60 BP: (171)/(60) Respiratory Rate Resp: 20 Resp: [20] SpO2 SpO2: 99 % SpO2: [99 %] Body mass index is 34.1 kg/m??. Physical Exam Constitutional: Appearance: Normal appearance. HENT: Head: Normocephalic. Nose: Nose normal. Mouth/Throat: Mouth: Mucous membranes are moist. Eyes: Pupils: Pupils are equal, round, and reactive to light. Cardiovascular: Rate and Rhythm: Normal rate and regular rhythm. Pulses: Normal pulses. Heart sounds: Normal heart sounds. Pulmonary: Effort: Pulmonary effort is normal. Breath sounds: Normal breath sounds. Abdominal: General: Abdomen is flat. Bowel sounds are normal. There is no distension. Palpations: Abdomen is soft. Tenderness: There is no abdominal tenderness. Musculoskeletal: General: No swelling or tenderness. Normal range of motion. Cervical back: Normal range of motion. Skin: General: Skin is warm and dry. Capillary Refill: Capillary refill takes less than 2 seconds. Neurological: General: No focal deficit present. Mental Status: He is alert and oriented to person, place, and time. Mental status is at baseline. Psychiatric: Mood and Affect: Mood normal. Laboratory (Last 24 Hours): Recent Results (from the past 24 hour(s)) Basic Metabolic Panel (non-fasting) Result Value Ref Range Glucose Lvl 146 65 - 199 mg/dL BUN 31 (H) 10 - 20 mg/dL Creatinine 3.12 (H) 0.80 - 1.50 mg/dL Sodium 139 135 - 145 mmol/L Potassium 5.8 (H) 3.5 - 5.0 mmol/L Chloride 108 (H) 98 - 107 mmol/L CO2 18 (L) 22 - 31 mmol/L Anion Gap 13 5 - 15 mmol/L Calcium 9.4 8.5 - 10.5 mg/dL Estimated GFR 21 (L) >=60 mL/min/1.73 m?? Hemogram Result Value Ref Range WBC 6.8 4.0 - 9.5 x10(3)/mcL RBC 3.13 (L) 4.58 - 5.54 x10(6)/mcL Hemoglobin 9.0 (L) 13.7 - 16.5 g/dL Hematocrit 29.9 (L) 40.5 - 48.5 % MCV 95.5 (H) 82.9 - 93.1 fL MCH 28.8 27.5 - 32.1 pg MCHC 30.1 (L) 32.0 - 35.7 g/dL Platelets 247 145 - 357 x10(3)/mcL RDWSD 54.7 (H) 36.0 - 45.0 fL RDWCV 15.8 (H) 11.4 - 13.8 % MPV 8.0 7.6 - 12.9 fL nRBC % Auto 0.0 % nRBC Abs Auto 0.000 0.000 - 0.000 x10(3)/mcL Differential, Automated Result Value Ref Range Neutrophils % 54.0 % Neutr Abs (ANC) 3.67 1.70 - 6.10 x10(3)/mcL Lymphocytes % 30.7 % Lymphocytes Abs 2.1 0.9 - 3.2 x10(3)/mcL Monocytes % 10.6 % Monocyte Abs 0.7 0.3 - 0.9 x10(3)/mcL Eosinophils % 3.7 % Eosinophils Abs 0.2 0.0 - 0.4 x10(3)/mcL Basophils % 0.7 % Basophils Abs 0.0 0.0 - 0.1 x10(3)/mcL Immature Gran % 0.30 % Courtney Gran Abs 0.02 0.00 - 0.04 x10(3)/mcL Gold Tube HOLD Result Value Ref Range Gold Hold Sample in lab. 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 In the ED he was evaluated by ENT and swabs were obtained from the ER with recommendation for IV antibiotics and pain control with likely bedside debridement tomorrow. On exam no significant concern for meningitis. Review of labs with a normal WBC at 6.8, hemoglobin 9.0. BMP with mild hyperkalemia up to 5.8, BUN 31, creatinine 3.1 near to baseline. Vitals with systolic hypertension, however afebrile. #Otitis externa-at risk for developing malignant otitis externa - Evaluated by ENT, start cefepime and topical ciprofloxacin - Pain control as needed - Swab obtained by ENT, follow culture results - N.p.o. after midnight for eval by ENT #History of renal transplant(16y ago) - Continue CellCept and Prograf - Renal function at baseline #HTN #HLD -Continue losartan 25 Mg daily, Toprol-XL 50 Mg daily, amlodipine 5 Mg daily, atorvastatin 20 Mg daily #Type II DM on insulin - Continue home insulin regimen, hold Victoza - Insulin sliding scale #COPD - Continue aerosols, #GERD - Continue PPI #MELISSA - Not on CPAP due to intolerance #DVT prophylaxis-Heparin CODE STATUS-full. A copy of this document will be sent to the patient's Primary Care Physician and/or Referring Physician. Dusty Haque MD 01/06/2022 documented in this encounter ED Notes Glory Garcia MD - 01/07/2022 12:31 AM EDT Leroy Torres is an 66 y.o. male who presents to the ED with: Chief Complaint Patient presents with ??? Fever ??? Headache HPI Leroy Torres is a 66 y.o. male with a PMH significant for history of renal transplant on immunosuppression, type 2 diabetes, who presents to the Emergency Department for left ear pain. Patient reports he has had worsening left ear pain over the last 2 weeks. He went to the OR with ENT on 12/29 for tympanostomy tubes to his left ear for a chronic otitis media. However, this was unable to be done dueto the profuse nature of the middle ear effusion. There was initially concern that the fluid was CSFbut the fluid was negative for beta-2 transferrin ruling this out. He has continued to have profuse discharge from his left ear. He has been placing cotton in the left ear to keep the discharge from draining down his neck. He has developed left-sided headache over the last couple of days. His pain is now starting to radiate down his jaw. He reports his sugars have been well controlled at home. Deniesany facial weakness or numbness. He has not been on any antibiotics. He originally went to urgent care where he was directed to come to the ED for evaluation. He reports at urgent care he had a fever of 102. He has been taking Tylenol, aspirin, and codeine for his headache. Medications, allergies, past medical history, surgical history, family history, and social history were reviewed Patient was evaluated and discussed with Dr. Clements Review of Systems: Pertinent positives and negatives are included in the HPI, otherwise at least ten systems were reviewed and negative. ED Triage Vitals [01/06/22 1557] BP: 171/60 Heart Rate: 76 Resp: 20 Temp: 37.1 ??C (98.8 ??F) Temp src: Oral SpO2: 99 % O2 Device: O2 Flow Rate (L/min): n/a Physical Exam: Physical Exam General: AOx3, no acute distress HENT: Swelling, sloughing, and purulent discharge to the left external auditory canal, no tendernessto the mastoid, tenderness to the left jaw Mouth: moist oral mucosa, tongue and uvula midline CV: regular rate and rhythm, no peripheral edema Pulm: lungs clear to auscultation bilaterally, symmetric chest rise, nonlabored breathing Abd: soft, nondistended, nontender to palpation MSK: moves all extremities equally, no gross deformities Skin: warm, dry Neuro: no gross deficits, GCS 15, symmetric smile Psych: appropriate mood and affect - Medications and fluids administered: Medications morphine (4 mg/mL) injection 4 mg (has no administration in time range) morphine (4 mg/mL) injection 4 mg (4 mg Intravenous Given 01/06/221818) ciprofloxacin-dexAMETHasone (Ciprodex) 0.3-0.1 % otic suspension 4 drop (4 drops Left Ear Given 01/06/221811) ceFEPime (Maxipime) 2g vial attach to sodium chloride 0.9% 100 mL Mini-Bag Plus 2 g (0 g IntravenousStopped 01/06/221850) HYDROmorphone (Dilaudid) (0.5 mg/0.5 mL) injection syringe 0.5 mg (0.5 mg Intravenous Given 01/06/222057) - I have reviewed imaging, which is significant for: CT Temporal Bone wo Contrast (Generic) Final Result Left mastoid effusion and complete opacification of the left middle ear cavity with concern for early cortical erosion involving the posterior lateral margin of the external canal as described above. Otherwise no aggressive osseous changes. Thank you for letting us participate in the care of this patient. If you are a health care provider and have any questions regarding this report, please contact the number below. For patients who have questions please contact the health healthcare administrative assistant that requested your imaging first. Electronically signed by: Angel Harkins [facility] ([phone]), at 01/06/2022 7:36 PM Assessment and Plan: MDM: 66 y.o. male who presents for left ear pain and drainage that has been worsening since attempted left tympanostomy tube placement on 12/29. He was hypertensive but his vitals were otherwise normal. He was uncomfortable appearing and holding his left ear due to pain. He had purulent discharge with swelling and sloughing to the left external auditory canal. He had no mastoid tenderness but did have tenderness down his left jaw. His exam was consistent with otitis externa and he was given cefepime and Cipro drops for this. Given his comorbidities I was concerned for possible malignant otitis externa and a CT of the temporal bone was done. CT was read as early cortical erosion. I had a conversation with radiology about this and they favored an infectious process as the etiology of this erosion. I had a discussion with ENT who did not feel he had otitis externa but given his comorbidities he hasmultiple risk factors for developing otitis externa. The decision was made to admit for continued IV antibiotics. ENT request admission to hospital medicine given his history of a renal transplant. They will continue to follow and may perform debridement at bedside in the morning. ED Course as of 01/07/22 003TueJan 06, [id number] WBC: 6.8 1850 Hemoglobin(!): 9.0 1913 Creatinine(!): 3.12 Baseline 1913 Potassium(!): 5.8 1913 Glucose Lvl: 146 1958 I had a discussion with radiology about the early cortical erosion and they report concern for possible early infection of the bone. Will engage ENT. 2014 I had a discussion with ENT who does not think he has malignant otitis externa, however, he does have multiple risk factors for malignant otitis externa and lives 2 hours away. They will come see him and make a plan, he will possibly have an observation admission with ENT for IV antibiotics. 2130 ENT thinks he should be admitted to given his comorbidities for IV abx and they will continue to follow him. paged. Impression: 1. Otitis externa Plan: admit to [facility] medicine with ENT following Glory Garcia MD Resident 01/07/22 0050 Associated attestation - Lizbeth Clements MD - 01/07/2022 12:54 AM EDT ED ATTENDING ATTESTATION The patient was seen in conjunction with the resident physician. I have independently performed the martínez portions of the history and physical exam. I have personally reviewed nursing notes, vital signs,and diagnostic studies including labs, imaging studies and EKGs. I have discussed the details of the case with the resident and agree with the assessment and plan as described in the resident's note, unless stated otherwise in my separate note. Did this case involve critical care? Lizbeth Peña MD - 01/06/2022 5:57 PM EDT ED Attending Brief Note HPI: Leroy Torres is a 66 y.o. male who presents to the Emergency Department h/o DM and renal transplant with immunosuppressants presenting with worsening left ear pain after an attempt for drainage fora chronic effusion by ENT. He also notes pain radiating the left side of his head and anterior jaw. He had fevers as high as 102 and has not any antibiotics. He denies any loss of vision difficulty swallowing chest pain shortness of breath nausea or vomiting. No past medical history on file. Review of Systems Constitutional: Positive for fever. HENT: Positive for ear discharge and ear pain. Respiratory: Negative for cough and shortness of breath. Cardiovascular: Negative for chest pain. Gastrointestinal: Negative for abdominal pain, diarrhea and vomiting. Skin: Negative for rash. All other systems reviewed and are negative. Pertinent positives and negatives are included in the HPI, otherwise at least ten systems were reviewed and negative. Past Medical and Surgical Histories, Social History, Medications, Allergies were reviewed in the chart. Vitals: ED Triage Vitals [01/06/22 1557] BP: 171/60 Heart Rate: 76 Resp: 20 Temp: 37.1 ??C (98.8 ??F) Temp src: Oral SpO2: 99 % O2 Device: RA O2 Flow Rate (L/min): n/a Physical Exam Vitals and nursing note reviewed. Constitutional: Appearance: He is well-developed. HENT: Head: Normocephalic and atraumatic. Ears: Comments: Left external ear normal no significant mastoid tenderness but tenderness just anterior to the ear extending into the submandibular region with no masses canal is full of purulent discharge with mild swelling but able to fully visualize to the TM Cardiovascular: Rate and Rhythm: Normal rate and regular rhythm. Pulses: Normal pulses. Heart sounds: Normal heart sounds. Pulmonary: Effort: Pulmonary effort is normal. No respiratory distress. Breath sounds: Normal breath sounds. Abdominal: General: There is no distension. Palpations: Abdomen is soft. Tenderness: There is no abdominal tenderness. Musculoskeletal: General: Normal range of motion. Cervical back: Normal range of motion and neck supple. Comments: Bilateral lower extremity amputations Skin: General: Skin is warm and dry. Neurological: Mental Status: He is alert and oriented to person, place, and time. Comments: BECKA Psychiatric: Behavior: Behavior normal. Thought Content: Thought content normal. Judgment: Judgment normal. ED Course: Assessment and Plan: 66 y.o. male with history of diabetes and renal transplant with left otitis externa or possible malignant otitis. CT ordered that showed possible early erosion into the canal itself therefore ENT was consulted. IV and topical antibiotics were given. Patient was seen by ENT and recommend admission for IV antibiotics given his high risk with his immunosuppression. Patient admitted to hospital medicine. Did this case involve critical care? No The visit findings, diagnosis, and care plan were discussed with the patient. Lizbeth Clements MD 01/06/22 2237 documented in this encounter Miscellaneous Notes Plan of Care - Reanna Otto RN - 01/07/2022 2:27 PM EDT OUTCOME EVALUATION NOTE: OUTCOME SUMMARY: Patient AOx4, room air, VS as charted. Patient complains of pain in left ear area. Pain medication given. Patient instructed by ENT not to put cotton balls or tissues in ear, instead, gauze and tape placed over ear to catch any drainage. Instructions and supplies given for home care. Plan to d/c home today. Patient aware and his will be his ride home. IV ABX d/c. All needs met at this time. No complaints or distress noted. Urinal at bedside. Call light and phone in reach. came to car pick up driver patient, patient and spouse agree to discharge in their own car. All belongings taken. Masimo and IV taken off. AVS given, discharge education about medications and follow up appointments given to and patient. All questions answered. Patient and state feeling safe to discharge home. PLAN MOVING FORWARD: Safe d/c Monitor I&O INDIVIDUALIZED FALL PREVENTION INTERVENTIONS: Patient-specific fall risk factors per assessment: [current deficits]: Impaired mobility, lines, hospital environment, bilateral BKA ?? Assistance [level of assistance required for transfers and ambulation]: 2 person assit Supervision [direct monitoring required during toileting and ADLs]: Hands on Surveillance [continuous indirect monitoring]: Masimo, purposeful rounding, close to nurses station,call light in reach, bed locked and low Patient-specific fall prevention interventions for sensory deficits provided, if applicable: n/a Care Management Discharge - Jacinta Marin RN - 01/07/2022 11:32 AM EDT CARE MANAGEMENT FINAL DISCHARGE NOTE Chart reviewed, care reviewed with primary team and at interdisciplinary rounds. Reuben is a 66 y.o. Male presented to on 01/06 with a 3-day history of severe left-sided earache, purulent drainage along with fevers. He has a past medical history of renal transplant 16 years ago and remains on immunosuppression, has Type !! DM, is status post left BKA, obesity, MELISSA, COPD, HLD, A-Fib, and GERD. Patient is medically ready for discharge to home, 01/07. Needs for Transition of Care: Plan for discharge is: Home w/o Services Outpatient Agency/Support Group Needs: None Agency Referrals & Follow-up Care: None indicated Transportation: family or friend will provide Plan for family to transport Reuben fung today at 1600 in private vehicle. Functional status prior to admission: Assist as needed Current Functional Ability: Assistive Person and Equipment DME Needed at Discharge: None indicated Patient is insured through: Primary Insurance: MEDICARE Payor: MEDICARE / Plan: MEDICARE PART A & B / Product Type: *No Product type* / Secondary Insurance: [employer] Prescription Coverage: This plan was formulated with input from patient, Reuben Torres, and team. All are in agreement with plan. Jacinta Marin RN [facility] Optical Instrument Specialist/Medicine Office of Care Management Pager: [phone] Plan of Care - Mikayla Poole RN - 01/07/2022 5:02 AM EDT OUTCOME EVALUATION NOTE: OUTCOME SUMMARY: Pt A&Ox4, room air. VSS. Pt denies pain. No acute events overnight. PLAN MOVING FORWARD: Monitor labs NPO IV ABX D/C planning INDIVIDUALIZED FALL PREVENTION INTERVENTIONS: Patient-specific fall risk factors per assessment: [current deficits]: Impaired mobility, lines Assistance [level of assistance required for transfers and ambulation]: Ax2 Supervision [direct monitoring required during toileting and ADLs]: Hands on Surveillance [continuous indirect monitoring]: Masimo, purposeful rounding, close to nurses station Patient-specific fall prevention interventions for sensory deficits provided, if applicable: [X] N/A CPG GOAL OUTCOME EVALUATION: Consult Note - Ellyn Cobian MD - 01/06/2022 9:15 PM EDT Patient Name: Leroy Torres Patient Age: 66 y.o. Birthdate: 1955 Admit date: 01/06/2022 Attending Physician: Lizbeth Melendez MD OTOLARYNGOLOGY - HEAD & NECK SURGERY CONSULT NOTE Name: Leroy Torres Age/Sex: 66 y.o. male ENT Attending: [facility] Day: 1 History of Present Illness We are seeing Leroy Torres today at the request of Dr. Lizbeth Melendez MD regarding ear pain . Leroy Torres is a 66 y.o. male with PMH renal transplant (~ 16 years ago) on immunosuppression, DM, MELISSA (not using CPAP due to intolerance), reflux who presented with 3 day history of acute severe left sided ear pain, purulent drainage and fevers. In detail, patient seen in ENT clinic in October 2021 for hearing loss. Seen by outside ENT and noted to have chronic middle ear effusion and narrow EAC.Underwent attempted tympanostomy tube placement which was unsuccessful due to narrowed canal, but myringotomy did result in thick inspissated mucoid effusion. He was offered canal plasty and associated myringotomy with tube placement but he declined and [place] [facility] [place]ringotomy was performed in office with mucoid effusion encountered, tube not placed due to challenging EAC anatomy. Patient then returned to OR on 12/29/21 for tube placement. Findings in OR included the following: Left ear with posterior inferior bulging tympanic membrane with middle ear effusion. Drum intact. Following posterior inferior myringotomy, scant mucoid effusion encountered followed by clear persistent watery discharge with persistent pulsations. Clear effusion suspect for CSF. Aspirate obtained with tymp trap with specimen sent for beta-2 transferrin. Insertion of tympanostomy tube deferred in context of intraoperative findings. Beta transferrin resulted as negative. Patient was scheduled for FU in ENT clinic in January. However, in the past few days patient has developed severed left sided headaches, ear pain, purulent dischargeand associated throat pain. He noted on and off fevers as well. He has required opioids for his headaches. He has a baseline difficulty swallowing which has not worsened (scheduled to see speech therapist later this month). He denies any new facial weakness, difficulty with speech, worsening difficulty swallowing or other neurological deficits. He denies vision changes, any new dizziness or vertigo. Review of Systems Pertinent positive findings discussed above. No other findings on review of constitutional, visual, cardiovascular, respiratory, gastrointestinal, genitourinary, musculoskeletal, dermatologic, neurological, psychiatric, endocrine, hematologic or immunologic systems. Problem List Patient Active Problem List Diagnosis Code ??? [...] COPD (chronic obstructive pulmonary disease) J44.9 ??? USP current use of immunosuppressive drug Z79.899 ??? [...] ear with restricted hearing of right earH90.A32 Past Medical History No past medical history on file. Past Surgical History Past Surgical History: Procedure Laterality Date [...] Biopsy Bone Marrow 10/22/2021 Richar Lo MD [facility] RAD CT SCAN ??? PRO AMPUTATION LOW LEG THRU TIB/FIB 06/21/2011 ??AMPUTATION, BELOW-KNEE performed by HENNA GAMINO JR at [facility] MA[facility] OR ??? PRO INCISION EARDRUM,ASPIR Left 12/29/2021 MYRINGOTOMY ASPIRATION OF MIDDLE EAR (WRVU 1.38) performed by Iraj Scott MD at [facility] MA[facility] OR ??? PRO LAP, APPENDECTOMY 06/16/2013 LAPAROSCOPIC APPENDECTOMY performed by Angel Mccann MD at [facility] MA[facility] OR ??? PRO MICROSURG TECHNIQUES, REQ OPER MICROSCOPE Left 12/29/2021 MICROSCOPE USE (WRVU 3.46) performed by Iraj Scott MD at [facility] MA[facility] OR ??? US RENAL TRANSPLANT LEFT Left 06/26/2019 US Renal Transplant Left 06/26/2019 [facility] RAD ULTRASOUND Medications & Allergies No current facility-administered medications on file prior to encounter. Current Outpatient Medications on File Prior to Encounter Medication Sig Dispense Refill ??? guaiFENesin ER [...] BY MOUTH DAILY 30 capsule 5 ??? losartan (Cozaar) 25 mg Tablet TAKE ONE TABLET BY MOUTH EVERY DAY 90 tablet 1 ??? FreeStyle Gilberto 2 Sensor Kit 1 each [facility]Non-Drug; Combo Route) route every 14 days. Use to continuously monitor blood glucose. Scan at least 4 times per day. 6 kit 3 ??? FreeStyle Gil[place]to 2 [facility] Use to continuously monitor blood glucose. Scan [...] 14 Day Sensor Kit 1 each by [facility]Non-Drug; Combo Route) route every 14 days. Use to continuously monitor blood glucose. Scan at least 5 times per day. DX: E11.65 6 kit 3 ??? darbepoetin cristy in polysorbat 10 mcg/0.4 mL Syringe Inject 300 mg as directed as needed. ??? cyanocobalamin, Vitamin B-12, (Vitamin B-12) 100 mcg Tablet Take 100 mcg by mouth daily. ??? Blood-Glucose Sensor (Dexcom G6 Sensor) Device by [facility]Non-Drug; Combo Route) route. 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 metoprolol succinate XL (Toprol-XL) 50 mg Tablet Sustained Release 24 hr Take 1 tablet by mouth daily. 90 tablet 1 ??? amLODIPine (Norvasc) 10 mg Tablet Take 0.5 tablets by mouth daily. 90 tablet 3 ??? fluticasone propionate (FLONASE) 50 mcg/actuation [place], Suspension INSTILL 2 SPRAYS INTO EACH NOSTRIL [...] gauge x 1/2 Needle 1 Device by [facility]Non- Drug; Combo Route) route 3 times daily. [...] Reported on 08/06/2016 ??? Miscellaneous Medical Supply [facility] 4 Devices by [facility].(Non-Drug; Combo Route) route daily. Rubber sheath for leg prosthesis (2 pairs) 4 each PRN ??? BD INSULIN PEN NEEDLE UF ORIG 29 gauge x 1/2 Needle 0 ??? aspirin 81 mg EC tablet Take 81 mg by mouth daily. Penicillins, Iftikhar inhibitors, Clindamycin hcl, Allergenic extracts, Ibuprofen, and Sulfamethoxazole-trimethoprim Social History Lives [place] [facility] [id number] Social History Socioeconomic History ??? Marital status: Spouse name: Not on file ??? Number of children: Not on file ??? Years of education: Not on file ??? Highest education level: Not on file Occupational History ??? Not on file Tobacco Use ??? Smoking status: Former Smoker Packs/day: 2.00 Years: 20.00 Pack years: 40.00 Types: Cigarettes Quit date: 01/19/1993 Years since quittin.9 ??? Smokeless tobacco: Never Used Vaping Use [...] on file Housing Stability: Not on file Family History No family history on file. Vitals Last value 24hr Range Temperature: 37.1 ??C (98.8 ??F) Temp: [37.1 ??C (98.8 ??F)] Heart Rate: 76 Heart Rate: [76] Blood Pressure: 171/60 BP: (171)/(60) Respiratory Rate: 20 Resp: [20] SpO2: 99 % SpO2: [99 %] Physical Exam General: NAD, appears very uncomfortable, holding left ear. Face: Symmetric without dysmorphic features. Eyes: EOMI, conjunctiva healthy Ears: Left external ear significantly tender to light palpation/manipulation, no post auricular tenderness, erthythema or swelling. EAC is narrowed, mildly edematous with purulent drainage noted in canal. TM partially visualized, no obvious effusion noted. Culture swab obtained from left ear. Right Ear: EAC clear with mild narrowing. Drum is intact with normal mobility via pneumatic otoscopy. Middle ear is well aerated. Nose: Patent nares, grossly normal appearance Oral Cavity/Pharynx: Mucosa is pink, oropharynx symmetric Neck: Soft, trachea midline Chest: Unlabored breathing, regular rate Neuro: Alert & oriented, moving extremities x 4. CN II-XII grossly intact. Procedures NA Labs Recent Labs 01/06/22 1810 WBC 6.8 HGB 9.0* HCT 29.9* PLATELET 247 NA 139 K 5.8* CL 108* CO2 18* BUN 31* CREATININE 3.12* GLUCOSE 146 CALCIUM 9.4 Imaging EXAMINATION: CT TEMPORAL BONE WO CONTRAST (GENERIC) ?? CLINICAL HISTORY: diabetic with otitis externa, r/o malignant otitis externa ? TECHNIQUE: CT temporal bones performed without intravenous contrast administration. ?? COMPARISON: CT head 12/25/2021. ?? FINDINGS: Visualized brain is normal. Chronic sphenoid sinus inflammation with osseous wall thickening. ?? Right temporal bone: Normal. ?? Left temporal bone: Progressive, complete opacification of the left mastoid air cells without aggressive osseous change. Complete opacification of the right middle ear cavity with intact ossicles again noted. Tegmen tympani is intact. Normally formed inner ear structures. ?? Mild soft tissue thickening along the external auditory canal. Question early cortical erosion along the lateral posterior margin of the external canal as identified on series 5 images 160 through 169. ? IMPRESSION Left mastoid effusion and complete opacification of the left middle ear cavity with concern for early cortical erosion involving the posterior lateral margin of the external canal as described above. ?? Otherwise no aggressive osseous changes. *Personally reviewed and evaluated ASSESSMENT & RECOMMENDATIONS Leroy Torres is a 66 y.o. male with PMH renal transplant on lifelong immunosuppression, DM, chronic effusion of L middle ear who presents with three day history of worsening left ear pain, purulentdrainage, fevers. Temporal bone scan obtained which shows possible early cortical erosion along lateral posterior margin of external canal. Discussed with both patient and ED that although suspicion islow at this time for malignant otitis externa, given his co morbidities and his acute presentation +poor pain control, would recommend starting antibiotics and evaluating tomorrow in clinic under microscope. Other differential includes acute otitis externa, acute otitis media or coalescent mastoiditis (though not appreciated on scan at this time). Would recommend making patient NPO at midnight in event that we opt to take him for OR for debridement, though this is no anticipated at this time. Patient is understanding and in agreement with plan. Recommendations: 1. Admit to medicine for IV antibiotics (psuedomonal coverage) + pain control. 2. Please provide patient with chloraseptic spray/drops (per his request) for throat pain. 3. Swab obtained from left ear - FU results. 4. Ok for regular diet. NPO at midnight + start IV fluids. 5. Will plan to arrange for patient to be seen in ENT clinic tomorrow morning (will touch base with primary team for timing tomorrow). 6. Rest of care per primary team. 7. ENT will continue to follow. Please page with any questions or concerns. __ Ellyn MD Aranza, PGY-3, Pager [phone] 01/06/22 9:18 PM ENT Team Pager: [phone] ED Triage - Monika Middleton RN - 01/06/2022 3:59 PM EDT HPI (Adult) Stated Reason for Visit: Went to urgent care and told to come to ED, left ear pain, fever, sore throat, ear drainage clear History Obtained From: patient, family documented in this encounter Plan of Treatment Upcoming Encounters Date Type Specialty Care Team Description 05/26/2022 Office Visit Otolaryngology Ricardo Panda PA [facility] [place], [place] [address] (Wo rk) 06/02/2022 Infusion Hematology and Oncology 06/16/2022 Infusion Hematology and Oncology 06/21/2022 Office Visit Neurology Tyler Rojas MD [facility] Neurology [place], [place] [phone] (Wo rk) 06/30/2022 Infusion Hematology and Oncology 07/14/2022 Infusion Hematology and Oncology 07/28/2022 Infusion Hematology and Oncology 08/11/2022 Infusion Hematology and Oncology 11/04/2022 Office Visit Rheumatology Dante Freedman PA [facility] RHEUMATOLOGY [place], [place] [address] (Wo rk) documented as of this encounter Procedures Procedure Name Priority Date/Time Associated Diagnosis Comme nts POCT GLUCOSE Routine 01/07/2022 11:15 AM Results for this EDT procedure are i n the results section. POCT GLUCOSE Routine 01/07/2022 7:24 AM Results f or this EDT procedure are i n the results section. BLOOD GAS VENOUS Routine 01/07/2022 6:51 AM Resul ts for this (NL) EDT procedure are i n the results section. POCT GLUCOSE Routine 01/07/2022 2:47 AM Results f or this EDT procedure are i n the results section. RAPID COVID-19 PCR STAT 01/06/2022 9:50 PM Res ults for this ([facility]D/[facility]) EDT procedure are in the results section. HC EAR CULTURE STAT 01/06/2022 9:50 PM Results for this EDT procedure are i n the results section. CT TEMPORAL BONE WO STAT 01/06/2022 7:25 PM Re sults for this CONTRAST EDT procedure are i n the results section. HEMOGRAM STAT 01/06/2022 6:10 PM Results f or this EDT procedure are i n the results section. DIFFERENTIAL, STAT 01/06/2022 6:10 PM Results for this AUTOMATED EDT procedure are i n the results section. GOLD TUBE HOLD Routine 01/06/2022 6:10 PM Results for this EDT procedure are i n the results section. HC CBC,PLT & AUTO STAT 01/06/2022 6:10 PM DIFF EDT BASIC METABOLIC STAT 01/06/2022 6:10 PM Result s for this PANEL (NON-FASTING) EDT procedur e are in the results section. documented in this encounter Results POCT Glucose (01/07/2022 11:15 AM EDT) athologist Signature POC Glucose 179 65 - 199 [facility] Comment: Supplemental ranges: <140 mg/dL before meals <180 mg/dL all other times of the day Specimen Anatomical Collection Method Collection Time Receive d Time (Source) Location / / Volume Laterality Blood 01/07/2022 11:15 01/07/2022 AM EDT 11:15 AM EDT Lizbeth Mcrae MD POINT OF CARE TEST ORDERABLE S Performing Organization Address City/State/[place] [address] POCT Glucose (01/07/2022 7:24 AM EDT) athologist Signature POC Glucose 128 65 - 199 [facility] Comment: Supplemental ranges: <140 mg/dL before meals <180 mg/dL all other times of the day Specimen Anatomical Collection Method Collection Time Receive d Time (Source) Location / / Volume Laterality Blood 01/07/2022 7:24 AM 7:24 EDT AM EDT Lizbeth Mcrae MD POINT OF CARE TEST ORDERABLE S Performing Organization Address City/State/[place] [address] (ABNORMAL) Blood Gas Venous ([facility]) (01/07/2022 6:51 AM EDT) Analysis Performed At Patho logist Time Signature pH Fan 7.30 (L) 7.32 - [facility] 7.42 [facility] pCO2 Fan 43 41 - 51 [facility] pO2 Fan 45 (H) 25 - 40 [facility] HCO3 Fan 20.4 mmol/L [facility] BE Fan -6.0 mmol/L [facility] Hgb Blood Gas 9.0 (L) 13.7 - [facility] 16.5 g/dL [facility] Comment: Interpret with caution, 1 ml syringe may give rise to occasional discrepant Hgb results. O2HB Fan 80.6 % [facility] COHB Afn 0.6 % [facility] Comment: Nonsmokers: 0.5-1.5% COHB Smokers: Variable, but usually less than 10% Toxic: 20-30% COHB Lethal: Greater than 60% COHB METHB Fan 0.3 <=1.5 % [facility] Na Whole Blood 140 135 - 145 mmol/L [facility] K Whole Blood 5.3 (H) 3.5 - 5.0 mmol/L [facility] Comment: Please note: Patients with WBC >100,000 may have falsely elevated Potassium levels. Contact the Clinical Chemistry L aboratory if there are any questions. ICa Whole Blood 1.31 1.15 - 1.33 mmol/L [facility] Comment: Note: ??Total bilirubin higher than 20 m g/dL may lead to falsely low ionized calcium. CL Whole Blood 111 (H) 98 - 107 mmol/L [facility] Gluc Whole Bld 115 65 - 199 mg/dL [facility] Comment: Diabetes: >=200 mg/dL plus symp toms Lactate WB 1.0 0.5 - 2.2 mmol/L [facility] BGas Source Venous [facility] Specimen Anatomical Collection Method Collection Time Receive d Time (Source) Location / / Volume Laterality Blood Venous Draw / 01/07/2022 6:51 AM 01/08/20 22 6:56 Unknown EDT AM EDT Resulting Agency Comment Spec In Lab Dusty Haque MD CHEMISTRY ORDERABLES Performing Organization Address City/State/[place] [address] [facility] [address] POCT Glucose (01/07/2022 2:47 AM EDT) P athologist Signature POC Glucose 106 65 - 199 [facility] mg[facility]dL [facility] Comment: Supplemental ranges: <140 mg/dL before meals <180 mg/dL all other times of the day Specimen Anatomical Collection Method Collection Time Receive d Time (Source) Location / / Volume Laterality Blood 01/07/2022 2:47 AM 2:47 EDT AM EDT Dusty Haque MD POINT OF CARE TEST ORDERABLE S Performing Organization Address City/State/[place] [address] [facility] [address] COVID-19 PCR (01/06/2022 9:50 PM EDT) Patholo gist Method Time Signature SARS-CoV-2 Not Detected Not Detected [facility] RNA PCR [facility] Comment: This result should be interpreted in com bination with the clinical observations, patient history and epidem iological information. For testing of asymptomatic individuals, assay performa nce characteristics and clinical utility have not been evaluated. Testing for SARS-CoV-2 (Severe acute respiratory syndrome coronavirus 2, form erly known as 2019 novel coronavirus or 2019-nCoV) to aid in the diagnosis of CO VID-19 is performed using the Simplexa COVID-19 Direct Assay by Zestyu jocelynn as authorized by the FDA issued Emergency Use Authorization (EUA). This assay is intended for In-vitro Diagnostic (IVD) use with nasopharyngeal swabs collected from individuals meeting the CDC criteria for testing. Th e assay is performed based on the instructions for use and additional guid ance provided by the FDA. Testing is performed in the Microbiology Laboratory within the Department of Pathology and Laboratory Medicine at [facility], certified under the Clinical Laboratory Improvement Amendmen ts of 1988 (CLIA), 42 U.S.C. section 263a, to perform high complexity tests. Assay performance has been verified according to clinical laboratory regulat ory requirements. Test results are provided above. A resul t of Not Detected indicates that the viral RNA target is not present but does not preclude SARS-CoV-2 infection. False negative results may occur if a sp ecimen is improperly collected, transported or handled; if amplification inhibitors are present; or if inadequate numbers of viral particles ar e present in the specimen. A result of Detected suggests a current or recent infection and the patient is presumed to be infected. Positive and negative pr edictive values for this test are highly dependent on disease prevalence. A result of Invalid indicates the inability to conclusively determine the presence or absence of SARS-CoV-2 RNA in the sample which can be due to a vari ety of factors. Recollection is recommended in the case of an invalid re sult. CDC COVID-19 criteria for testing on hum an specimens and clinical management guidance information are available at [facility] CDC Coronavirus Disease 2019 (COVID-19) webpage under Information fo r Healthcare Professionals (https://www.cdc.gov/coronavirus/2019-nc ov/hcp/index.html). Additional information about this and ot her EUA tests can be found in provider and patient fact sheets at the following FDA website: https://www.fda.gov/medical-devices/fyudobccimh-nwgbqgm-7288-zsseg-62-jbjqothte- lae-sastokqavkuqdx-xjqqxuy-devices/xbtkd-ttyuitzsrtg-sndp SARS-CoV-2 Source BOAT LOADER Swab [facility] Specimen (Source) Anatomical Collection Method Collection Time Re ceived Time Location / / Volume Laterality Nasopharyngeal Swab 01/06/2022 9:50 01/06 PM EDT 10:22 PM EDT Comment: Symptoms->Surveillance Resulting Agency Comment Spec In Lab Lizbeth Melendez MD MICROBIOLOGY - GENERAL ORDER STEPHANIE Performing Organization Address City/State/[place] [address] (ABNORMAL) Ear culture Middle Ear Fluid; Ear, Left (01/06/2022 9:50 PM EDT) [facility] Method Time Signature Ear Culture Many mixed [facility] normal LABORATORY cutaneous roque (A) Gram Stain Moderate Neutrophils seen MAR Rare Gram Positive Cocci seen TERRAL Rare Gram Positive Rods seen [facility] Organism Gram Positive JERE Cocci (A) [facility] Organism Gram Positive JERE Rods (A) [facility] Specimen Anatomical Collection Method Collection Time Receive d Time (Source) Location / / Volume Laterality Middle Ear Fluid LEFT EAR STRUCTURE 01/06/2022 9:50 PM 01/06/2022 / Unknown EDT 10:20 PM EDT Comment: Left external canal drainage Resulting Agency Comment Spec In Lab Lizbeth Melendez MD MICROBIOLOGY - GENERAL ORDER STEPHANIE Performing Organization Address City/State/ZIP [place] [address] Temporal Bone wo Contrast (Generic) (01/06/2022 7:25 PM EDT) Anatomical Region Laterality Modality Head Computed Tomography Specimen (Source) Anatomical Collection Method Collection Time Re ceived Time Location / / Volume Laterality 01/06/2022 7:42 PM EDT Impressions 01/06/2022 7:36 PM EDT Left mastoid effusion and complete opacification of the left middle ear cavity with concern for early cortical erosion involving the posterior lateral margin of the external canal as described above . Otherwise no aggressive osseous changes. Thank you for letting us participate in the care of this patient. ??If you are a health care provider and have any questi ons regarding this report, please contact the number below. ??For patients who have questions please contact the health healthcare administrative assistant that requested your imaging first. ? Electronically signed by: Angel Harkins [facility] ([phone]), at 01/06/2022 7:36 PM Narrative 01/06/2022 7:36 PM EDT EXAMINATION: CT TEMPORAL BONE WO CONTRAST (GENERIC) CLINICAL HISTORY: diabetic with otitis e xterna, r/o malignant otitis externa TECHNIQUE: CT temporal bones performed without intr avenous contrast administration. COMPARISON: CT head 12/25/2021. FINDINGS: Visualized brain is normal. Chronic sphe noid sinus inflammation with osseous wall thickening. Right temporal bone: Normal. Left temporal bone: Progressive, complet e opacification of the left mastoid air cells without aggressive osseous change. Complete opacification of the right middle ear cavity with intact ossicles a gain noted. Tegmen tympani is intact. Normally formed inner ear structures. Mild soft tissue thickening along the ex ternal auditory canal. Question early cortical erosion along the lateral poste rior margin of the external canal as identified on series 5 images 160 throug h 169. Procedure Note Angel Harkins MD - 01/06/2022Formatti ng of this note might be different from the original. EXAMINATION: CT TEMPORAL BONE WO CONTRAS T (GENERIC) CLINICAL HISTORY: diabetic with otitis e xterna, r/o malignant otitis externa TECHNIQUE: CT temporal bones performed without intr avenous contrast administration. COMPARISON: CT head 12/25/2021. FINDINGS: Visualized brain is normal. Chronic sphe noid sinus inflammation with osseous wall thickening. Right temporal bone: Normal. Left temporal bone: Progressive, complet e opacification of the left mastoid air cells without aggressive osseous change. Complete opacification of the right middle ear cavity with intact ossicles a gain noted. Tegmen tympani is intact. Normally formed inner ear structures. Mild soft tissue thickening along the ex ternal auditory canal. Question early cortical erosion along the lateral poste rior margin of the external canal as identified on series 5 images 160 throug h 169. IMPRESSION Left mastoid effusion and complete opaci fication of the left middle ear cavity with concern for early cortical erosion involving the posterior lateral margin of the external canal as described above . Otherwise no aggressive osseous changes. Thank you for letting us participate in the care of this patient. If you are a health care provider and have any questi ons regarding this report, please contact the number below. For patients w ho have questions please contact the health healthcare administrative assistant that requested your imaging first. Electronically signed by: Angel Harkins [facility] ([phone]), at 01/06/2022 7:36 PM Lizbeth Melendez MD IMG CT ORDERABLES Gold Tube HOLD (01/06/2022 6:10 PM EDT) P athologist Signature Gold Hold Sample in [facility]. [facility] Specimen Anatomical Collection Method Collection Time Receive d Time (Source) Location / / Volume Laterality Blood No Charge / 01/06/2022 6:10 PM 2 6:18 Unknown EDT PM EDT Glory Ramirez Radha [facility] CHEMISTRY ORDERABLES Performing Organization Address City/State/[place] [address] Differential, Automated (01/06/2022 6:10 PM EDT) athologist Signature Neutrophils % 54.0 % [facility] Neutr Abs (ANC) 3.67 1.70 - [facility] 6.10 [facility] x10(3)/[facility] LABORATORY Lymphocytes % 30.7 % [facility] Lymphocytes Abs 2.1 0.9 - 3.2 [facility] x10(3)/[facility] LABORATORY Monocytes % 10.6 % [facility] Monocyte Abs 0.7 0.3 - 0.9 [facility] x10(3)/[facility] LABORATORY Eosinophils % 3.7 % [facility] Eosinophils Abs 0.2 0.0 - 0.4 [facility] x10(3)/[facility] LABORATORY Basophils % 0.7 % [facility] Basophils Abs 0.0 0.0 - 0.1 [facility] x10(3)/[facility] LABORATORY Immature Gran % 0.30 % [facility] Comment: Immature granulocytes(IG's)percentage an d absolute count will include metamyelocytes, myelocytes, and promyelo cytes. Blood smears from CBCs yielding IG's will be scanned manually for concor dance. If this scan disagrees with the automated IG or if promyelocytes are not ed, a manual differential will be performed. Courtney Gran Abs 0.02 0.00 - 0.04 x10(3)/[facility] MAR Y [facility] Specimen Anatomical Collection Method Collection Time Receive d Time (Source) Location / / Volume Laterality Blood 01/06/2022 6:10 PM 2 6:17 EDT PM EDT Resulting Agency Comment Spec In Lab Glory Garcia MD HEMATOLOGY ORDERABLES Performing Organization Address City/State/ZIP Code Phon e Number [address] (ABNORMAL) Hemogram (01/06/2022 6:10 PM EDT) Analysis Performed At Patho logist Time Signature WBC 6.8 4.0 - 9.5 [facility] LABORATORY RBC 3.13 (L) 4.58 - JERE MELI 5.54 [facility] x10(6)/[facility] LABORATORY Hemoglobin 9.0 (L) 13.7 - [facility] 16.5 g/dL [facility] Hematocrit 29.9 (L) 40.5 - [facility] 48.5 % [facility] MCV 95.5 (H) 82.9 - [facility] 93.1 [facility] MCH 28.8 27.5 - [place] MELI 32.1 pg [facility] MCHC 30.1 (L) 32.0 - [place] MELI 35.7 g/dL [facility] Platelets 247 145 - 357 [facility] x10(3)/[facility] LABORATORY RDWSD 54.7 (H) 36.0 - [facility] MELI 45.0 [facility] RDWCV 15.8 (H) 11.4 - [facility] MELI 13.8 % [facility] MPV 8.0 7.6 - 12.9 [facility] nRBC % Auto 0.0 % [facility] LABORATORY nRBC Abs Auto 0.000 0.000 - [facility] MELI 0.000 [facility] x10(3)/[facility] LABORATORY Specimen Anatomical Collection Method Collection Time Receive d Time (Source) Location / / Volume Laterality Blood 01/06/2022 6:10 PM 2 6:17 EDT PM EDT Resulting Agency Comment Spec In Lab Glory Garcia MD HEMATOLOGY ORDERABLES Performing Organization Address City/State/[place] [address] (ABNORMAL) Basic Metabolic Panel (non-fasting) (01/06/2022 6:10 PM EDT) P athologist Signature Glucose Lvl 146 65 - 199 [facility] mg/dL [facility] Comment: Diabetes: >=200 mg/dL plus symp toms BUN 31 (H) 10 - 20 mg/dL [facility] Creatinine 3.12 (H) 0.80 - 1.50 mg/dL [facility] Sodium 139 135 - 145 mmol/L [facility] Potassium 5.8 (H) 3.5 - 5.0 mmol/L [facility] Comment: Please note: ??Patients with WBC >100,00 0 may have falsely elevated Potassium levels. ??For accurate Potassium quantif ication in these patients send serum separator tube (gold top) for subsequent determinations. ??Contact the Clinical Chemistry Laboratory if there are any qu estions. Chloride 108 (H) 98 - 107 mmol/L [facility]ORY CO2 18 (L) 22 - 31 mmol/L [facility] Anion Gap 13 5 - 15 mmol/L [facility] Calcium 9.4 8.5 - 10.5 mg/dL [facility] Estimated GFR 21 (L) >=60 mL/min/1.73 m?? [facility] Comment: This patient's estimated [...] (Source) Location / / Volume Laterality Blood 01/06/2022 6:10 PM 2 6:17 EDT PM EDT Resulting Agency Comment Spec In Lab Lizbeth Melendez MD CHEMISTRY ORDERABLES Performing Organization Address City/State/[place] [address] documented in this encounter Visit Diagnoses Diagnosis Otitis externa - Primary Infective otitis externa, unspecified documented in this encounter Admitting Diagnoses Diagnosis Otitis externa Infective otitis externa, unspecified documented in this encounter Administered Medications Inactive Administered Medications - up to 3 most recent administrations Medication Order MAR Action Action Date Dose Rate Site amLODIPine (Norvasc) tablet 5 mg Given 01/07/2022 8:12 AM EDT 5 mg 5 mg, Oral, DAILY, First dose on Lucie 01/07/22 at 0900, Until Discontinued, Routine aspirin EC tablet 81 mg Given 01/07/2022 8:12 AM EDT 81 mg 81 mg, Oral, DAILY, First dose on Lucie 01/07/22 at 0900, Until Discontinued, Routine budesonide-formoteroL (Symbicort) Given 01/07/2022 6:05 AM EDT 2 Inhalation 160-4.5 mcg/actuation inhaler 2 Inhalation 2 Inhalation, Inhalation, (R) 2 TIMES DAILY, First dose on Tue01/07/22 at 0600, Until Discontinued, Routine ceFEPime (Maxipime) 2g vial attach to New Bag 01/06/2022 6:21 PM EDT 2 g 200 mL/hr sodium chloride 0.9% 100 mL Mini-Bag Plus 2 g 2 g, Intravenous, ONCE, 1 dose, On Tue01/06/22 at 1821, Administer over 30 Minutes, Indication for (Active or Suspected): Sinusitis/Pharyngitis ceFEPime (Maxipime) 2g vial attach to New Bag 01/07/2022 8:13 AM EDT 2 g 33.3 mL/hr sodium chloride 0.9% 100 mL Mini-Bag Plus 2 g 2 g, Intravenous, EVERY 12 HOURS, First dose (after last reorder) on Tue01/07/22 at 0900, Until Discontinued, Administer over 180 Minutes, Indication for (Active or Suspected): Sinusitis/Pharyngitis cefPODOXime (Vantin) tablet 200 mg 200 mg, Oral, 2 TIMES DAILY, First dose on Tue01/07/22 at 2000, Until Discontinued, Cefepime given 01/07 @0800 so covered for [address] dose due 01/07 @1999, Routine, Indication for (Active or Suspected): Other ( See comment) cholecalciferol (Vitamin D3) tablet Given 01/07/2022 8:12 AM EDT 2,000 Units 2,000 Units 2,000 Units, Oral, DAILY, First dose on Tue01/07/22 at 0900, Until Discontinued, Routine ciprofloxacin-dexAMETHasone (Ciprodex) Given 01/06/2022 6:12 PM EDT 4 drops 0.3-0.1 % otic suspension 4 drop 4 drop, Left Ear, ONCE, 1 dose, On Tue01/06/22 at 1812, STAT ciprofloxacin-dexAMETHasone (Ciprodex) Given 01/07/2022 8:17 AM EDT 4 drops 0.3-0.1 % otic suspension 4 drop 4 drop, Left Ear, 2 TIMES DAILY, First dose (after last reorder) on Tue01/07/22 at 0245, Until Discontinued, STAT Given 01/07/2022 2:45 AM EDT 4 drops cyanocobalamin (Vitamin B-12) (Vitamin B-12) Given 8:16 AM EDT 100 mcg tablet 100 mcg 100 mcg, Oral, DAILY, First dose on Tue01/07/22 at 0900, Until Discontinued, Routine dextrose 10% infusion 250 mL, at 1,000 mL/hr, Intravenous, LISA RY 30 MIN PRN, Starting on Tue01/07/22 at 0150, Until Tue01/07/22 at 1705, For BG 50-70 mg/dL: Oral treatment preferred: If able to drink, give 120 mL Juice or R egular (not diet) soda OR If NPO, give 15 gram glucose 40% oral gel massaged into buccal mucosa OR if unconscious or uncooperative, give 25 gram (250 mL) Dex trose 10% IV over 15 minutes per protocol OR, if no IV access, 1 mg Glucagon IM. * * For BG less than 50 mg/dL: Oral treatment preferred: If able to drink, give 240 mL Juice or Regu lar (not diet) soda OR If NPO, give 30 gram glucose 40% oral gel m assaged in buccal mucosa OR if unconscious or uncooperative, give 25 gram (250 mL) Dextrose 10% I V over 15 minutes per protocol OR, if no IV access, 1 mg Glucagon IM. Rech radha BG in 30 minutes. May repeat juice/soda, gel, dextrose or gluc agon once per episode. For persistent hypoglycemia, consider longer-acting treatment for the duration of the active insulin. folic acid (Folvite) tablet 2 mg Given 01/07/2022 8:12 AM EDT 2 mg 2 mg, Oral, DAILY, First dose on Lucie 01/07/22 at 0900, Until Discontinued, Routine glucagon (Glucagen) (1 mg/mL) injection solution 1 mg 1 mg, Intramuscular, EVERY 30 MIN PRN, S tarting on Lucie 01/07/22 at 0150, Until Lucie 01/07/22 at 1705, Low blood sugar, For BG 50-70 mg/dL: Oral treatment preferred: If able to drink, give 120 mL Juice or R egular (not diet) soda OR If NPO, give 15 gram glucose 40% oral gel massaged into buccal mucosa OR if unconscious or uncooperative, give 25 gram (250 mL) Dex trose 10% IV over 15 minutes per protocol OR, if no IV access, 1 mg Glucagon IM. * * For BG less than 50 mg/dL: Oral treatment preferred: If able to drink, give 240 mL Juice or Regu lar (not diet) soda OR If NPO, give 30 gram glucose 40% oral gel m assaged in buccal mucosa OR if unconscious or uncooperative, give 25 gram (250 mL) Dextrose 10% I V over 15 minutes per protocol OR, if no IV access, 1 mg Glucagon IM. Rech radha BG in 30 minutes. May repeat juice/soda, gel, dextrose or gluc agon once per episode. For persistent hypoglycemia, consider longer-acting treatment for the duration of the active insulin., Routine glucose (Glutose) 40% oral geL 15-30 g of glucose, Buccal, EVERY 30 MIN PRN, Starting on Lucie 01/07/22 at 0150, Until Lucie 01/07/22 at 1705, Low blood sug ar, For BG 50-70 mg/dL: Oral treatment preferred: If able to drink, give 120 mL Juice or Regu lar (not diet) soda OR If NPO, give 15 gram glucose 40% oral gel massaged into b uccal mucosa OR if unconscious or uncooperative, give 25 gr am (250 mL) Dextrose 10% IV over 15 minutes per protocol OR, if no IV access, 1 mg G lucagon IM. For BG less than 50 mg/dL: Oral treatment preferred: If able to dri nk, give 240 mL Juice or Regular (not diet) soda OR If NPO, give 30 gram glucose 40% oral gel massaged in buccal mucosa OR if unconscious or uncooperative, give 25 gr am (250 mL) Dextrose 10% IV over 15 minutes per protocol OR, if no IV access, 1 mg G lucagon IM. Recheck BG in 30 minutes. May repeat juice/soda, gel, dextrose or gluc agon once per episode. For persistent hypoglycemia, consider longer-acting treatment for the duration of the active insulin. 1 tube of Glutose-15 contains 1 5 grams of glucose (net weight of tube = 37.5 grams.), Routine heparin (porcine) (5,000 units/1 mL) Given 01/07/2022 6:05 AM ED T 5,000 Units subcutaneous injection 5,000 Units 5,000 Units, Subcutaneous, EVERY 8 HOURS SCHEDULED, First dose on Tue01/07/22 at 0600, Until Discontinued, Routine hydrALAZINE (Apresoline) tablet 100 mg Given 01/07/2022 8:12 AM EDT 100 mg 100 mg, Oral, 3 TIMES DAILY, First dose on Tue01/07/22 at 0900, Until Discontinued, Routine HYDROmorphone (Dilaudid) (0.5 mg/0.5 mL) Given 01/06/2022 8:58 P M EDT 0.5 mg injection syringe 0.5 mg 0.5 mg, Intravenous, ONCE, 1 dose, On Tue01/06/22 at 2058, STAT HYDROmorphone (Dilaudid) (1 mg/mL) injection Given 8:10 AM EDT 0.5 mg syringe 0.5 mg 0.5 mg, Intravenous, EVERY 4 HOURS PRN, Starting on Tue01/07/22 at 0150, Until Tue01/07/22 at 0813, Pain, Routine insulin detemir (Levemir) (100 unit/mL) Given 01/07/2022 8:17 AM EDT 45 Units subcutaneous injection vial 45 Units 45 Units, Subcutaneous, 2 TIMES DAILY, First dose on Tue01/07/22 at 0245, Until Discontinued, Routine insulin lispro (HumaLOG;Admelog) (100 Given 01/07/2022 12:00 PM EDT 4 Units unit/mL) subcutaneous injection vial 2-12 Units 2-12 Units, Subcutaneous, EVERY 4 HOURS SCHEDULED, First dose on Tue01/07/22 at 0400, Until Discontinued, CORRECTION BOLUS [2-12 Units] Resistant Sliding Scale (BG in mg/dL) Correction Factor 10 (1 unit of insulin is expected to drop the glucose 10 mg/dL) BG 140 - 160 Give 2 units BG 161 - 180 Give 4 units BG 181 - 200 Give 6 units BG 201 - 220 Give 8 units BG 221 - 240 Give 10 units BG greater than 240, give 12 units and recheck BG in 2 hours. - If recheck BG is LESS than 240, give no insulin and resume schedule. - If recheck BG is GREATER than 240, give 12 units and repeat BG in 2 hours (no more than 3 times) & call for new insulin orders. DO NOT hold if NPO, unless specifically directed to do so by written order. Per Blood Glucose Monitoring Policy, re-check a BG of > 240 mg/dL in 2 hours, Routine montelukast (Singulair) tablet 10 mg Given 01/07/2022 8:12 AM EDT 10 mg 10 mg, Oral, DAILY, First dose on Tue01/07/22 at 0900, Until Discontinued, Routine morphine (4 mg/mL) injection 4 mg Given 01/06/2022 6:19 PM EDT 4 mg 4 mg, Intravenous, ONCE, 1 dose, On Tue01/06/22 at 1809, STAT morphine (4 mg/mL) injection 4 mg Given 01/07/2022 1:01 AM EDT 4 mg 4 mg, Intravenous, ONCE, 1 dose, On Tue01/06/22 at 2223, Routine mycophenolate (Cellcept) capsule 500 mg Given 01/07/2022 8:16 AM EDT 500 mg 500 mg, Oral, 2 TIMES DAILY, First dose on Tue01/07/22 at 0245, Until Discontinued, DO NOT CRUSH OR OPEN, Routine Given 01/07/2022 2:57 AM EDT 500 mg oxyCODONE (Roxicodone) tablet 10-15 mg 10-15 mg, Oral, EVERY 4 HOURS PRN, Starting on Lucie 12/23 01/13 at 0813, Until Lucie 01/07/22 at 1705, Pain, severe pain (7-10 ), Initial dose 10mg. If pain control not adequate in 60 minutes, give additional 5mg, Routine oxyCODONE (Roxicodone) tablet 5-10 mg 5-10 mg, Oral, EVERY 4 HOURS PRN, Starting on Lucie 01/07 at 0813, Until Lucie 01/07/22 at 1705, Pain, moderate pain (4- 6), Initial dose 5mg. If pain control not adequate in 60 minutes, give additional 5mg, Routine pantoprazole EC (Protonix) tablet 40 mg Given 01/07/2022 8:12 AM EDT 40 mg 40 mg, Oral, DAILY, First dose on [facility] 01/07/22 at 0900, Until Discontinued primidone (Mysoline) tablet 50 mg Given 01/07/2022 12:05 PM EDT 50 mg 50 mg, Oral, 4 TIMES DAILY, First dose on Lucie 01/07/22 at 0900, Until Discontinued, Take with Food, Routine Given 01/07/2022 8:16 AM EDT 50 mg sodium chloride 0.9 % (flush) (BD PosiFlush Given 01/07/2022 9:0 0 AM EDT 5 mLs Normal Saline 0.9) flush 5 mL 5 mL, Intravenous, 2 TIMES DAILY, First dose on Lucie 01/07/22 at 0245, Until Discontinued, Routine Given 01/07/2022 2:52 AM EDT 5 mLs sodium chloride 0.9% infusion New Bag 01/07/2022 2:45 AM EDT 1,000 mLs 100 mL/hr 1,000 mL, at 100 mL/hr, Intravenous, CONTINUOUS, Starting on Lucie 01/07/22 at 0245, Until Lucie 01/07/22 at 1705 tacrolimus (Prograf) capsule 1 mg Given 01/07/2022 8:12 AM EDT 1 mg 1 mg, Oral, DAILY, First dose on [facility] 01/07/22 at 0900, Until Discontinued, DO NOT SPLIT, CRUSH OR OPEN, Routine documented in this encounter Active and Recently Administered Medications Times are shown in EDT. Scheduled Medication Order 01/05/2022 01/06/2022 01/07/2022 amLODIPine (Norvasc) tablet 5 mg 08 (Given - Provider: Reanna Otto RN) 5 mg, Oral, DAILY, First dose on Lucie 12/23 01/13 at 0900, Until Discontinued, Routine aspirin EC tablet 81 mg 08 (Gi fan - Provider: Reanna Otto RN) 81 mg, Oral, DAILY, First dose on Lucie at 0900, Until Discontinued, Routine atorvastatin (Lipitor) tablet 20 mg 20 mg, Oral, EVERY EVENING, First dose o n Lucie 01/07/22 at 1700, Until Discontinued, Routine budesonide-formoteroL (Symbicort) 160-4.5 mcg/actuation inhaler 2 Inhalation 604 (Given - Provider: Mikayla Poole RN) 2 Inhalation, Inhalation, (R) 2 TIMES DA GERTRUDE, First dose on Tue01/07/22 at 0600, Until Discontinued, Routine ceFEPime (Maxipime) 2g vial attach to so dium chloride 0.9% 100 mL Mini-Bag Plus 2 g (COMPLETED) 1820 (New Bag - Provider: Piotr Sarmiento LPN)1850 (Stopped - Provider: Alexa Sarmiento LPN) 2 g, Intravenous, ONCE, 1 dose, On Tue at 1821, Administer over 30 Minutes, Indication for (Active or Suspected): Sinusitis/Pharyngitis ceFEPime (Maxipime) 2g vial attach to so dium chloride 0.9% 100 mL Mini-Bag Plus 2 g (CANCELED) 812 (New Bag - Prov ider: Reanna Otto RN)08 (Stopped - Provider: Reanna Otto RN - Comment: Time automatically adjusted from order being discontinued) 2 g, Intravenous, EVERY 12 HOURS, First dose (after last reorder) on Tue01/07/22 at 0900, Until Discontinued, Administer over 180 Minutes, Indication for (Active or Suspected): Sinusitis/Pharyngitis cefPODOXime (Vantin) tablet 200 mg 200 mg, Oral, 2 TIMES DAILY, First dose on Tue01/07/22 at 2000, Until Discontinued, Cefepime given 01/07 @0800 so covered for 12 hours. First dose due 01/07 @2000, Routine cholecalciferol (Vitamin D3) tablet 2,000 Units 0812 (Given - Provider: Reanna Otto RN) 2,000 Units, Oral, DAILY, First dose on Tue01/07/22 at 0900, Until Discontinued, Routine ciprofloxacin-dexAMETHasone (Ciprodex) 0 .3-0.1 % otic suspension 4 drop (COMPLETED) 181 (Given - Provider: Alexa Sarmiento LPN) 4 drop, Left Ear, ONCE, 1 dose, On Tue01/06/22 at 1812, STAT ciprofloxacin-dexAMETHasone (Ciprodex) 0.3-0.1 % otic suspension 4 drop 0245 (Given - Provider: Mikayla Poole RN)0817 (Given - Provider: Reanna Otto RN) 4 drop, Left Ear, 2 TIMES DAILY, First d ose (after last reorder) on Tue01/07/22 at 0245, Until Discontinued, STAT cyanocobalamin (Vitamin B-12) (Vitamin B-12) tablet 100 mcg 0816 (Given - Provider: Reanna Otto RN) 100 mcg, Oral, DAILY, First dose on Tue01/07/22 at 0900, Until Discontinued, Routine folic acid (Folvite) tablet 2 mg 0812 (Given - Provider: Reanna Otto RN) 2 mg, Oral, DAILY, First dose on 12/23 at 0900, Until Discontinued, Routine guaiFENesin ER (Mucinex) tablet 600 mg 600 mg, Oral, NIGHTLY, First dose on Tue01/07/22 at 2100, Until Discontinued, DO NOT CRUSH OR OPEN, Routine heparin (porcine) (5,000 units/1 mL) subcutaneous injection 5,00 0 Units 0605 (Given - Provider: Mikayla Poole RN)1400 (Not Given - Provider: Reanna Otto RN - Reason: Patient/family refused) 5,000 Units, Subcutaneous, EVERY 8 HOURS SCHEDULED, First dose on Tue01/07/22 at 0600, Until Discontinued, Routine hydrALAZINE (Apresoline) tablet 100 mg 0812 (Given - Provider: Reanna Otto RN)1500 (Due) 100 mg, Oral, 3 TIMES DAILY, First dose on Tue01/07/22 at 0900, Until Discontinued, Routine HYDROmorphone (Dilaudid) (0.5 mg/0.5 mL) injection syringe 0 .5 mg (COMPLETED) 2057 (Given - Provider: Alexa Sarmiento LPN) 0.5 mg, Intravenous, ONCE, 1 dose, On Tue01/06/22 at 2058, STAT insulin detemir (Levemir) (100 unit/mL) subcutaneous injection v ial 45 Units 0245 (Not Given - Provider: Mikayla Poole RN - Reason: Patient/family refused)0817 (Given - Provider: Reanna Otto RN) 45 Units, Subcutaneous, 2 TIMES DAILY, F irst dose on Tue01/07/22 at 0245, Until Discontinued, Routine insulin lispro (HumaLOG;Admelog) (100 un it/mL) subcutaneous injection vial 2-12 Units(Linked Group 1) 0400 (Not Given - Provider: Mikayla Poole RN - Reason: Order parameters not met)0800 (Not Given - Provider: Reanna Otto RN - Reason: Order parameters not met)1200 (Given - Provider: Reanna Otto RN) 2-12 Units, Subcutaneous, EVERY 4 HOURS SCHEDULED, First dose on Tue01/07/22 at 0400, Until Discontinued, CORRECTION BOLUS [2-12 Units] Resistant Sliding Scale (BG in mg/dL) Correction Factor 10 (1 unit of insulin is expected to drop the glucose 10 mg/dL) BG 140 - 160 Give 2 units BG 161 - 180 Give 4 units BG 181 - 200 Give 6 units BG 201 - 220 Give 8 units BG 221 - 240 Give 10 units BG greater th an 240, give 12 units and recheck BG in 2 hours. - If recheck BG is LESS than 240, give no insulin and resume schedule. - If recheck BG is GREATER than 240, give 12 units and repeat BG in 2 hours (no mo re than 3 times) & call for new insulin orders. DO NOT hold if NPO, unless specifically directed to do so by written order. Per Blood Glucose Monitoring Policy, re-check a BG of > 240 mg/dL in 2 hours, Routine metoprolol succinate XL (Toprol-XL) tablet 50 mg 0900 (Not Given - Provider: Reanna Otto RN - Reason: See comment - Comment: held by pharmacy) 50 mg, Oral, DAILY, First dose on Tue at 0900, Until Discontinued, DO NOT CRUSH OR OPEN, Routine montelukast (Singulair) tablet 10 mg 08 (Given - Provider: Reanna Otto RN) 10 mg, Oral, DAILY, First dose on Tue at 0900, Until Discontinued, Routine morphine (4 mg/mL) injection 4 mg (COMPLETED) 1818 (Given - Provider: Alexa Sarmiento LPN) 4 mg, Intravenous, ONCE, 1 dose, On Tue01/06/22 at 1809, STAT morphine (4 mg/mL) injection 4 mg (COMPLETED) 100 (Given - Provider: Inessa Estrada LPN) 4 mg, Intravenous, ONCE, 1 dose, On Tue01/06/22 at 2223, Routine mycophenolate (Cellcept) capsule 500 mg 0257 (Given - Provider: Mikayla Poole RN)08 (Given - Provider: Reanna Otto RN) 500 mg, Oral, 2 TIMES DAILY, First dose on Tue01/07/22 at 0245, Until Discontinued, DO NOT CRUSH OR OPEN, Routine pantoprazole EC (Protonix) tablet 40 mg 08 (Given - Provider: Reanna Otto RN) 40 mg, Oral, DAILY, First dose on Tue01/07/22 at 0900, Until Dis continued primidone (Mysoline) tablet 50 mg 0816 (Given - Provider: Reanna Otto RN)1205 (Given - Provider: Reanna Otto RN) 50 mg, Oral, 4 TIMES DAILY, First dose o n Tue01/07/22 at 0900, Until Discontinued, Take with Food, Routine sodium chloride 0.9 % (flush) (BD PosiFlush Normal Saline 0.9) f lush 5 mL 0252 (Given - Provider: Mikayla Poole RN)0900 (Given - Provider: Reanna Otto RN) 5 mL, Intravenous, 2 TIMES DAILY, First dose on Lucie 01/07/22 at 0245, Until Discontinued, Routine tacrolimus (Prograf) capsule 0.5 mg 0.5 mg, Oral, NIGHTLY, First dose on Lucie 01/07/22 at 2100, Until Discontinued, DO NOT SPLIT, CRUSH OR OPEN, Routine tacrolimus (Prograf) capsule 1 mg 0812 (Given - Provider: Reanna Otto RN) 1 mg, Oral, DAILY, First dose on Lucie 12/23 01/13 at 0900, Until Discontinued, DO NOT SPLIT, CRUSH OR OPEN, Routine Continuous Medication Order 01/05/2022 01/06/2022 01/07/2022 sodium chloride 0.9% infusion 02 45 (New Bag - Provider: Mikayla Poole RN)1705 (Due: Stopped) 1,000 mL, at 100 mL/hr, Intravenous, CON TINUOUS, Starting on Lucie 01/07/22 at 0245, Until Lucie 01/07/22 at 1705 PRN Medication Order 01/05/2022 01/06/2022 01/07/2022 acetaminophen (Tylenol) tablet 650 mg 650 mg, Oral, EVERY 4 HOURS PRN, Startin g on Lucie 01/07/22 at 0150, Until Lucie 01/07/22 at 1705, Pain, Maximum dose of acetaminophen is 4000 mg from all sources in 24 hours. When ordered for pain, acetamino phen should be given even when other ord ered pain medications are indicated. , Routine albuteroL (Proventil) nebulizer solution 2.5 mg 2.5 mg, Nebulization, EVERY 4 HOURS PRN, Starting on Lucie 01/07/22 at 0150, Until Lucie 01/07/22 at 1705, Wheezing, Routine dextrose 10% infusion(Linked Group 2) 250 mL, at 1,000 mL/hr, Intravenous, LISA RY 30 MIN PRN, Starting on Lucie 01/07/22 at 0150, Until Lucie 01/07/22 at 1705, For BG 50-70 mg/dL: Oral treatment preferred: If able to drink, give 120 mL Juice or Regular (not diet) soda OR If NPO, give 15 gram glucose 40% oral gel massaged into buccal mucosa OR if unconscious or uncooperative, give 25 gram (250 mL) Dextrose 10% IV over 15 minutes per protocol O R, if no IV access, 1 mg Glucagon IM. For BG less than 50 mg/dL: Oral treatment preferred: If able to drink, give 240 mL Juice or Regular (not diet) soda OR If NPO, give 30 gram glucose 40% oral gel massaged in buccal mucosa OR if unconsci ous or uncooperative, give 25 gram (250 mL) Dextrose 10% IV over 15 minutes per protocol OR, if no IV access, 1 mg Glucagon IM. Recheck BG in 30 minutes. May re peat juice/soda, gel, dextrose or glucag on once per episode. For persistent hypoglycemia, consider longer-acting treatment for the duration of the active insulin. glucagon (Glucagen) (1 mg/mL) injection solution 1 mg(Linked Maritza up 2) 1 mg, Intramuscular, EVERY 30 MIN PRN, S tarting on Lucie 01/07/22 at 0150, Until Lucie 01/07/22 at 1705, Low blood sugar, For BG 50-70 mg/dL: Oral treatment preferred: If able to drink, give 120 mL Juice o r Regular (not diet) soda OR If NPO, giv e 15 gram glucose 40% oral gel massaged into buccal mucosa OR if unconscious or uncooperative, give 25 gram (250 mL) Dextrose 10% IV over 15 minutes per protocol OR, if no IV access, 1 mg Glucagon IM. * * For BG less than 50 mg/dL: Oral treatment preferred: If able to drink, give 240 mL Juice or Regular (not diet) soda OR If NPO, give 30 gram glucose 40% oral gel massaged in buccal mucosa OR if unconsc ious or uncooperative, give 25 gram (250 mL) Dextrose 10% IV over 15 minutes per protocol OR, if no IV access, 1 mg Glucagon IM. Recheck BG in 30 minutes. May r epeat juice/soda, gel, dextrose or gluca ashley once per episode. For persistent hypoglycemia, consider longer-acting treatment for the duration of the active insulin., Routine glucose (Glutose) 40% oral geL(Linked Group 2) 15-30 g of glucose, Buccal, EVERY 30 MIN PRN, Starting on Lucie 01/07/22 at 0150, Until Lucie 01/07/22 at 1705, Low blood sugar, For BG 50-70 mg/dL: Oral treatment preferred: If able to drink, give 120 mL Juice or Regular (not diet) soda OR If N PO, give 15 gram glucose 40% oral gel massaged into buccal mucosa OR if unconscious or uncooperative, give 25 gram (250 mL) Dextrose 10% IV over 15 minutes per pr otocol OR, if no IV access, 1 mg Glucago n IM. For BG less than 50 mg/dL: Oral treatment preferred: If able to drink, give 240 mL Juice or Regular (not diet) soda OR If NPO, give 30 gram glucose 40% o ral gel massaged in buccal mucosa OR if unconscious or uncooperative, give 25 gram (250 mL) Dextrose 10% IV over 15 minutes per protocol OR, if no IV access, 1 mg Glucagon IM. Recheck BG in 30 minutes . May repeat juice/soda, gel, dextrose o r glucagon once per episode. For persistent hypoglycemia, consider longer-acting treatment for the duration of the active insulin. 1 tube of Glutose-15 contain s 15 grams of glucose (net weight of tube = 37.5 grams.), Routin e HYDROmorphone (Dilaudid) (1 mg/mL) injection syringe 0.5 mg (CAN CELED) 0810 (Given - Provider: Reanna Otto RN) 0.5 mg, Intravenous, EVERY 4 HOURS PRN, Starting on Lucie 01/07/22 at 0150, Until Lucie 01/07/22 at 0813, Pain, Routine ipratropium-albuteroL (Duoneb) 0.5 mg-3 mg(2.5 mg base)/3 mL nebulizer solution 3 mL 3 mL, Nebulization, EVERY 4 HOURS PRN, S tarting on Lucie 01/07/22 at 0150, Until Lucie 01/07/22 at 1705, Wheezing, Routine lidocaine (Xylocaine) 1% (10 mg/mL) injection 3 mg 3 mg (0.3 mL), Subcutaneous, ONCE PRN, 1 dose, Starting on Lucie 01/07/22 at 0150, Until Lucie 01/07/22 at 1705, for discomfort with PIV insertion, Routine oxyCODONE (Roxicodone) tablet 10-15 mg(Linked Group 3) 10-15 mg, Oral, EVERY 4 HOURS PRN, Start ing on Tue01/07/22 at 0813, Until Lucie 01/07/22 at 1705, Pain, severe pain (7-10), Initial dose 10mg. If pain control not adequate in 60 minutes, give additional 5mg, Routine oxyCODONE (Roxicodone) tablet 5-10 mg(Linked Group 3) 5-10 mg, Oral, EVERY 4 HOURS PRN, Starti ng on Tue01/07/22 at 0813, Until Lucie 01/07/22 at 1705, Pain, moderate pain (4-6), Initial dose 5mg. If pain control not adequate in 60 minutes, give additional 5mg, Routine sodium chloride 0.9 % (flush) (BD PosiFlush Normal Saline 0.9) f lush 5-20 mL 5-20 mL, Intravenous, EVERY 1 MIN PRN, S tarting on Tue01/07/22 at 0150, Until Tue01/07/22 at 1705, flush, Flush pertains to all indwelling lines. Flush per protocol found in the job aid using the link provided on this medication record., Routine Linked Groups Order Group 1: POCT Fingerstick Glucose (CANCELED) Routine, EVERY 4 HOURS, First occurrence on Tue01/07/22 at 0155, Until Specified
Consider choosing EVERY 4 HOURS as frequency for: - Type 1 Diabetes - At least 24 hours after coming off an insu genevieve drip - At least 24 hours after admis gaby for DKA - Hypoglycemia unawareness - Patients who are otherwise unstable Select the same frequency for the correction bolus insulin order And insulin lispro (HumaLOG;Admelog) (100 unit/mL) subcutaneous injection vial 2-12 UnitsJump to med 2-12 Units, Subcutaneous, EVERY 4 HOURS SCHEDULED, First dose on Tue01/07/22 at 0400, Until Discontinued
CORRECTION BOLUS [2-12 Units] Resistant Sliding Scale (BG in mg/dL) Correct ion Factor 10 (1 unit of insulin is expe cted to drop the glucose 10 mg/dL) BG 140 - 160 Give 2 units BG 161 - 180 Give 4 units BG 181 - 200 Give 6 units &nbsp ;BG 201 - 220 Give 8 units BG 221 - 240 Give 10 units BG greater than 240, give 12 units and recheck BG in 2 hours. - If recheck BG is LESS than 240, give no insulin and re sume schedule. - If recheck BG is GREATER than 240, give 12 units and repeat BG in 2 hours (no more than 3 times) & call for new insulin orders. DO NOT hold if NPO, unless specifically directed to do so by written order. Per Blood Glucose Monitoring Policy, re-check a BG of > 240 mg/dL in 2 hours
Routine Group 2: glucose (Glutose) 40% oral geLJump to med 15-30 g of glucose, Buccal, EVERY 30 MIN PRN, Starting on Lucie 01/07/22 at 0150, Until Lucie 01/07/22 at 1705, Low blood sugar
For BG 50-70 mg/dL: &nbs p;Oral treatment preferred: If able to d rink, give 120 mL Juice or Regular (not diet) soda OR If NPO, give 15 gram glucose 40% oral gel massaged into buccal mucosa OR if unconscious or uncooperative, gi ve 25 gram (250 mL) Dextrose 10% IV over 15 minutes per protocol OR, if no IV access, 1 mg Glucagon IM. For BG less than 50 mg/dL: Oral treatment pre ferred: If able to drink, give 240 mL Ju ice or Regular (not diet) soda OR If NPO, give 30 gram glucose 40% oral gel massaged in buccal mucosa OR if unconscious or uncooperative, give 25 gram (250 mL) De xtrose 10% IV over 15 minutes per protoc ol OR, if no IV access, 1 mg Glucagon IM. Recheck BG in 30 minutes. May repeat juice/soda, gel, dextrose or glucagon once per episode.&nb sp; For persistent hypoglycemia, consider longer-acting treatment for the duration of the active insulin. 1 tube of Glutose-15 contains 15 grams of glucose (net weight of tube = 37.5 grams.)
Routine Or dextrose 10% infusionJump to med 250 mL, at 1,000 mL/hr, Intravenous, LISA RY 30 MIN PRN, Starting on Lucie 01/07/22 at 0150, Until Lucie 01/07/22 at 1705
For BG 50-70 mg/dL: Oral t reatment preferred: If able to drink, gi ve 120 mL Juice or Regular (not diet) soda OR If NPO, give 15 gram glucose 40% oral gel massaged into buccal mucosa OR if unconscious or uncooperative, give 25 gr am (250 mL) Dextrose 10% IV over 15 [place] per protocol OR, if no IV access, 1 mg Glucagon IM. For BG less than 50 mg/dL: Oral treatment preferred: If able to drink, give 240 mL Juice or R egular (not diet) soda OR If NPO, give 30 gram glucose 40% oral gel massaged in buccal mucosa OR if unconscious or uncooperative, give 25 gram (250 mL) Dextrose 1 0% IV over 15 minutes per protocol OR, i f no IV access, 1 mg Glucagon IM. Recheck BG in 30 minutes. May repeat juice/soda, gel, dextrose or glucagon once per episode. & nbsp; For persistent hypoglycemia, con landscape specialist longer-acting treatment for the duration of the active insulin.
Or glucagon (Glucagen) (1 mg/mL) injection solution 1 mgJump to med 1 mg, Intramuscular, EVERY 30 MIN PRN, S tarting on Lucie 01/07/22 at 0150, Until Lucie 01/07/22 at 1705, Low blood sugar
For BG 50-70 mg/dL: Oral treatment preferred: If able to drink, g roderick 120 mL Juice or Regular (not diet) soda OR If NPO, give 15 gram glucose 40% oral gel massaged into buccal mucosa OR if unconscious or uncooperative, give 25 g tam (250 mL) Dextrose 10% IV over 15 min utes per protocol OR, if no IV access, 1 mg Glucagon IM. For BG less than 50 mg/dL: Oral treatment preferred: If able to drink, give 240 mL Juice or Regular (not diet) soda OR If NPO, give 30 gram glucose 40% oral gel massaged in buccal mucosa OR if unconscious or uncooperative, give 25 gram (250 mL) Dextrose 10% IV over 15 minutes per protocol OR, if no IV access, 1 mg Glucagon IM. Recheck BG in 30 minutes. May repeat juice/soda, gel, dextrose or glucagon once per episode. &amp ;nbsp; For persistent hypoglycemia, co nsider longer-acting treatment for the duration of the active insulin.
Routine Group 3: oxyCODONE (Roxicodone) tablet 5-10 mgJump to med 5-10 mg, Oral, EVERY 4 HOURS PRN, Starti ng on Lucie 01/07/22 at 0813, Until Lucie 01/07/22 at 1705, Pain, moderate pain (4-6)
Initial dose 5mg. If pain control not adequate in 60 minutes, give additional 5mg
Routine Or oxyCODONE (Roxicodone) tablet 10-15 mgJump to med 10-15 mg, Oral, EVERY 4 HOURS PRN, Start ing on Lucie 01/07/22 at 0813, Until Lucie 01/07/22 at 1705, Pain, severe pain (7-10)
Initial dose 10mg. If pain control not adequate in 60 minutes, give additional 5mg
Routine documented in this encounter Care Teams Blind Aide Relationship Specialty Start Date End Date Violetta Sanford MD PCP - General 04/02/14 [address] [place] [address] documented as of this encounter
--- OUTSIDE RECORDS SUMMARY | 2022-05-24 10:47 | XMS_ITS | Encounter Summary ---
:1955 Author Organization [facility] [place] [address] Care Team Providers Name Role Phone Violetta Sanford MD Primary Care Provider Reason for Visit Reason Comments IV Medication IV venoferSQ aranesp Treatment/Therapy Plan Authorization (Routine) - Pending Review Specialty Diagnoses / Procedures Referred By Contact Refer red To Contact Diagnoses CKD (chronic kidney disease) stage 4, GFR 15-29 ml/min Nicky Baez MD [facility] D R HEMATOLOGY/[place] [address] Referral ID Status Reason Start Date Expiration Date Visits V isits Requested Authorized [id number] Pending 11/10/2021 11/10/2022 99 99 Review Encounter Details Date Type Department Care Team Description 12/02/2021 Infusion Hematology Oncology at [facility] of chronic renal [facility] failure, stage 4 (severe) [address] [place] [phone] Social History Tobacco Use Types [...] Sign Reading Time Taken Comments Blood Pressure 156/48 12/02/2021 12:43 PM EDT Pulse 77 12/02/2021 12:43 PM EDT Temperature 37.1 ??C (98.7 ??F) 12/02/2021 12:43 PM EDT Respiratory Rate 18 12/02/2021 12:43 PM EDT Oxygen Saturation 100% 12/02/2021 12:43 PM EDT Inhaled Oxygen Concentration - - Weight 129.3 kg (285 lb) 12/02/2021 12:43 PM EDT Height 193 cm (6' 3.98) 12/02/2021 12:43 PM EDT Body Mass Index 34.71 12/02/2021 12:43 PM EDT documented in this encounter Progress Notes Millie Kc RN - 12/02/2021 1:00 PM EDT Infusion Note Diagnosis: CKD/SHAYAN anemia Treatment: Aranesp Injection and IV venofer Labs: 11/26/21 - H/H - 7.7/26.3, Ferritin - 201 on 11/26/21. Aranesp 300 mcg injected in right arm. Venofer administered as ordered followed by 30 minute wait period. Patient aware to call clinic with any questions or concerns. Plan: Return to clinic as scheduled. documented in this encounter Plan of Treatment Upcoming Encounters Date Type Specialty Care Team Description 05/26/2022 Office Visit Otolaryngology Ricardo Panda PA [facility] [place], [place] [address] (Wo rk) 06/02/2022 Infusion Hematology and Oncology 06/16/2022 Infusion Hematology and Oncology 06/21/2022 Office Visit Neurology Tyler Rojas MD [facility] Dr [place], [place] [phone] (Wo rk) 06/30/2022 Infusion Hematology and Oncology 07/14/2022 Infusion Hematology and Oncology 07/28/2022 Infusion Hematology and Oncology 08/11/2022 Infusion Hematology and Oncology 11/04/2022 Office Visit Rheumatology Dante Freedman PA [facility] [address] [place] [address] (Wo rk) documented as of this encounter Visit Diagnoses Diagnosis Anemia of chronic renal failure, stage 4 (severe) documented in this encounter Administered Medications Inactive Administered Medications - up to 3 most recent administrations Medication Order MAR Action Action Date Dose Rate Site acetaminophen (Tylenol) tablet 975 Given 12/02/2021 1:46 PM EDT 975 mg mg 975 mg, Oral, ONCE, 1 dose, On Tue12/02/21 at 1345, Give prior to patient's infusion. Maximum dose of acetaminophen is 4,000 mg from all sources in 24 hours, Routine darbepoetin cristy-polysorbate Given 12/02/2021 1:47 PM EDT 300 mc g Right Arm (Aranesp) (300 mcg/0.6 mL) injection 300 mcg 300 mcg, Subcutaneous, ONCE, 1 dose, On Tue12/02/21 at 1315, Hold parameters for MDS and chemotherapy-induced anemia: Hemoglobin greater than or equal to 10 gm/dL Hematocrit greater than or equal to 30% Hold parameters for CKD: Hemoglobin greater than or equal to 12 gm/dL Hematocrit greater than or equal to 36%, Routine, What is the indication of use? Chronic Kidney Disease (CKD) diphenhydrAMINE (Benadryl) capsule 25 mg Given 12/02/2021 1:46 PM EDT 25 mg 25 mg, Oral, ONCE, 1 dose, On Tue12/02/21 at 1345, Give prior to patient's infusion., Routine hydrocortisone sod succ (pf) (Solu-CORTEF) Given 12/02/2021 1:47 PM EDT 25 mg (100 mg/2 mL) injection 25 mg 25 mg, Intravenous, EVERY 8 HOURS SCHEDULED, First dose on Tue12/02/21 at 1400, Until Discontinued, Routine iron sucrose (Venofer) (20 mg/mL) for slow IV Given 2:29 PM EDT 200 mg push 200 mg 200 mg, Intravenous, ONCE, 1 dose, On Tue12/02/21 at 1415, Administer over 5 Minutes, Patients should be closely monitored for signs of hypersensitivity during and for at least 30 min after each administration. The observation period is not needed for patients who have demonstrated tolerability. documented in this encounter Care Teams Information And Data Architect Analyst Relationship Specialty Start Date End Date Violetta Sanford MD PCP - General 04/02/14 [address] [place] [address] documented as of this encounter
--- OUTSIDE RECORDS SUMMARY | 2022-05-24 10:47 | XMS_ITS | Encounter Summary ---
:1955 Author Organization [facility] [address] Care Team Providers Name Role Phone Violetta Sanford MD Primary Care Provider Reason for Visit Reason Onset Date Comments Labs Only 01/13/2022 Lab tracking Encounter Details Date Type Department Care Team Description 01/13/2022 Telephone Hematology/Oncology at Brittany Vera RN Labs Only (Lab tracking) [address] [phone] Social History Tobacco Use Types [...] Telephone Encounter - Brittany Vera RN - 01/13/2022 10:16 AM EDT LAB TRACKING Leroy Torres [id number] 1955 ?? DIAGNOSIS: Anemia d/t CKD stage IV, h/o kidney transplant ?? LABS: CBC every 4 weeks as of 05/27/21 ?? MEDICATIONS: Aranesp 300 mcg every 2 weeks if HGB <12 as of 05/27/21 venofer x 3 weeks last given 12/16/21 ?? ASSESSMENT/PLAN: Pt saw Mago Purvis NP in clinic. Labs again in 4 weeks February 10, 2022. Pt will get aranesp 300 mcg today. Latest Reference Range & Units 01/06/22 18:10 01/07/22 06:51 01/12/22 00:00 WBC 4.0 - 9.5 x10(3)/mcL 6.8 6.82 (E) RBC 4.58 - 5.54 x10(6)/mcL 3.13 (L) Hemoglobin 13.7 - 16.5 g/dL 9.0 (L) 8.8 (E) Hgb Blood Gas 13.7 - 16.5 g/dL 9.0 (L) [1] Hematocrit 40.5 - 48.5 % 29.9 (L) 29.2 (E) MCV 82.9 - 93.1 fL 95.5 (H) MCH 27.5 - 32.1 pg 28.8 MCHC 32.0 - 35.7 g/dL 30.1 (L) RDWSD 36.0 - 45.0 fL 54.7 (H) RDWCV 11.4 - 13.8 % 15.8 (H) Platelets 145 - 357 x10(3)/mcL 247 198 (E) MPV 7.6 - 12.9 fL 8.0 NRBC % Auto % 0.0 NRBC Abs Auto 0.000 - 0.000 x10(3)/mcL 0.000 Neutr Abs (ANC) 1.70 - 6.10 x10(3)/mcL 3.67 3.73 (E) Neutrophils % % 54.0 Immature Gran % % 0.30 [2] Lymphocytes % % 30.7 Monocytes % % 10.6 Eosinophils % % 3.7 Basophils % % 0.7 Courtney Gran Abs 0.00 - 0.04 x10(3)/mcL 0.02 Lymphocytes Abs 0.9 - 3.2 x10(3)/mcL 2.1 Monocyte Abs 0.3 - 0.9 x10(3)/mcL 0.7 Eosinophils Abs 0.0 - 0.4 x10(3)/mcL 0.2 Basophils Abs 0.0 - 0.1 x10(3)/mcL 0.0 PH Pio 7.32 - 7.42 7.30 (L) PCO2 Pio 41 - 51 mmHg 43 PO2 Pio 25 - 40 mmHg 45 (H) HCO3 Pio mmol/L 20.4 BE Pio mmol/L -6.0 O2HB Pio % 80.6 COHB Pio % 0.6 [3] METHB Pio <=1.5 % 0.3 BGas Source Venous Sodium 135 - 145 mmol/L 139 Na Whole Blood 135 - 145 mmol/L 140 Potassium 3.5 - 5.0 mmol/L 5.8 (H) [4] K Whole Blood 3.5 - 5.0 mmol/L 5.3 (H) [5] Chloride 98 - 107 mmol/L 108 (H) CL Whole Blood 98 - 107 mmol/L 111 (H) CO2 22 - 31 mmol/L 18 (L) Anion Gap 5 - 15 mmol/L 13 BUN 10 - 20 mg/dL 31 (H) 43 (E) Creatinine 0.80 - 1.50 mg/dL 3.12 (H) 3.2 (E) (L): Data is abnormally low (H): Data is abnormally high (E): External lab result [1] Interpret with caution, 1 ml syringe may give rise to occasional discrepant Hgb results. [2] Immature granulocytes(IG's)percentage and absolute count will include metamyelocytes, myelocytes, and promyelocytes. Blood smears from CBCs yielding IG's will be scanned manually for concordance. If this scan disagrees with the automated IG or if promyelocytes are noted, a manual differential will be performed. [3] Nonsmokers: 0.5-1.5% COHB Smokers: Variable, but usually less than 10% Toxic: 20-30% COHB Lethal: Greater than 60% COHB [4] Please note: Patients with WBC >100,000 may have falsely elevated Potassium levels. For accurate Potassium quantification in these patients send serum separator tube (gold top) for subsequent determinations. Contact the Clinical Chemistry Laboratory if there are any questions. [5] Please note: Patients with WBC >100,000 may have falsely elevated Potassium levels. Contact the Clinical Chemistry Laboratory if there are any questions. documented in this encounter Plan of Treatment Upcoming Encounters Date Type Specialty Care Team Description 05/26/2022 Office Visit Otolaryngology Ricardo Panda PA [facility] Dr [place], [place] [address] (Wo rk) 06/02/2022 Infusion Hematology and Oncology 06/16/2022 Infusion Hematology and Oncology 06/21/2022 Office Visit Neurology Tyler Rojas MD [facility] Neurology [place], [place] [phone] (Wo rk) 06/30/2022 Infusion Hematology and Oncology 07/14/2022 Infusion Hematology and Oncology 07/28/2022 Infusion Hematology and Oncology 08/11/2022 Infusion Hematology and Oncology 11/04/2022 Office Visit Rheumatology Dante Freedman PA [facility] RHEUMATOLOGY [place], [place] [address] (Wo rk) documented as of this encounter Visit Diagnoses Not on filedocumented in this encounter Care Teams Porcelain Finish Sprayer Relationship Specialty Start Date End Date Violetta Sanford MD PCP - General 04/02/14 [address] [place] [address] documented as of this encounter
--- OUTSIDE RECORDS SUMMARY | 2022-05-24 10:47 | XMS_ITS | Encounter Summary ---
:1955 Author Organization [facility] [place] [address] Care Team Providers Name Role Phone Violetta Sanford MD Primary Care Provider Encounter Details Date Type Department Care Team Description 12/28/2021 Telephone Otolaryngology at [facility] Eulalia Urban, [place] [phone] Social History Tobacco Use Types Packs/Day [...] encounter Miscellaneous Notes Telephone Encounter - Eulalia Urban RN - 12/28/2021 12:49 PM EDT Caller: Reuben Relationship: Self Clarified Two Patient Identifiers: [x] Reason For Call: left ear is blocked Assessment/Symptom Review (onset/duration, location/which ear, what makes it better or worse, color/consistency drainage, pertinent positives and negatives):Patient's call transferred to nurse triage line. Patient states I woke over the weekend and my left ear is blocked up. I have pain in my head and jaw Patient states there's only decreased hearing d/t the ear feeling plugged. No other ear symptoms. No new orders; plan for surgery as scheduled with Dr. Apodaca on 12/29 Otorrhea?: no Otalgia?: yes Fullness?: yes Tinnitus?: no Hearing Loss?: no Dizziness?: no Recent illness/fevers?: no Review of Systems Related to Reason for Call: System POS NEG Not Applicable Head (ENT /Neuro) [x] [] [] Cardiac [] [] [x] Respiratory [] [] [x] GI [] [] [x] [] [] [x] Musculoskeletal [] [] [x] Integumentary [] [] [x] Mental Health [] [] [x] Select Specific Decision Support Tool Used: After discussion with DA Bender, he recommends no newplan for patient; plan for surgery 12/[address] apodaca Disposition/Plan of Care: Call back if no improvement Patient/Caregiver verbalizes understanding of plan of care: Yes Patient/Caregiver agrees with plan: Yes Advised patient/caregiver to: call office back for any new or worsening symptoms Patient/Caregiver demonstrates understanding: Yes documented in this encounter Plan of Treatment Upcoming Encounters Date Type Specialty Care Team Description 05/26/2022 Office Visit Otolaryngology Ricardo Panda PA [facility] Dr [address] [place] [address] (Wo gregg) 06/02/2022 Infusion Hematology and Oncology 06/16/2022 Infusion Hematology and Oncology 06/21/2022 Office Visit Neurology Tyler Rojas MD [facility] Neurology [place], [place] [phone] (Wo gregg) 06/30/2022 Infusion Hematology and Oncology 07/14/2022 Infusion Hematology and Oncology 07/28/2022 Infusion Hematology and Oncology 08/11/2022 Infusion Hematology and Oncology 11/04/2022 Office Visit Rheumatology Dante Freedman PA [facility] RHEUMATOLOGY [place], [place] [address] (Wo rk) documented as of this encounter Visit Diagnoses Not on filedocumented in this encounter Care Teams Debt Collection Specialist Relationship Specialty Start Date End Date Violetta Sanford MD PCP - General 04/02/14 [address] [place] [address] documented as of this encounter
--- OUTSIDE RECORDS SUMMARY | 2022-05-24 10:47 | XMS_ITS | Encounter Summary ---
:1955 Author Organization [facility] [place] [address] Care Team Providers Name Role Phone Violetta Sanford MD Primary Care Provider Reason for Visit Reason Comments IV Medication Venofer Injections Aranesp Treatment/Therapy Plan Authorization (Routine) - Pending Review Specialty Diagnoses / Procedures Referred By Contact Refer red To Contact Diagnoses CKD (chronic kidney disease) stage 4, GFR 15-29 ml/min Nicky Baez MD [facility] D R HEMATOLOGY/[place] [address] Referral ID Status Reason Start Date Expiration Date Visits V isits Requested Authorized [id number] Pending 11/10/2021 11/10/2022 99 99 Review Encounter Details Date Type Department Care Team Description 11/18/2021 Infusion Hematology Oncology at [facility] of chronic renal [facility] failure, stage 4 (severe) [address] [place] [phone] Social History Tobacco Use Types [...] Sign Reading Time Taken Comments Blood Pressure 130/48 11/18/2021 11:58 AM EDT Pulse 73 11/18/2021 11:58 AM EDT Temperature 36.8 ??C (98.2 ??F) 11/18/2021 11:58 AM EDT Respiratory Rate 20 11/18/2021 11:58 AM EDT Oxygen Saturation 100% 11/18/2021 11:58 AM EDT Inhaled Oxygen Concentration - - Weight 135.4 kg (298 lb 9.6 oz) 11/18/2021 11:58 AM EDT Height 193 cm (6' 3.98) 11/18/2021 11:58 AM EDT Body Mass Index 36.36 11/18/2021 11:58 AM EDT documented in this encounter Progress Notes Jumana Saab RN - 11/18/2021 12:00 PM EDT Infusion Note INFUSION THERAPY ADMINISTRATION NOTES DIAGNOSIS: Iron Deficiency REASON FOR VISIT: Shaggy Alexis offers no complaints. He forgot his CGM at home and asked for his blood sugar to be checked while here. Fingerstick glucose 165. OBJECTIVE LAB DATA: Hgb 7.6 Hct 25.7, Dr. Baez aware. REACTIONS (DESCRIPTION, TIME, INTERVENTION AND EFFECTIVENESS) none Treatment: Aranesp Injection Aranesp 300 mcg injected in right arm. Patient aware to call clinic with any questions or concerns. ASSESSMENT Reuben was awake, alert and tolerated treatment well. Patient remained in clinic for 30 min post infusion to monitor for reactions. PLAN Return to clinic in two weeks. Patient aware to call clinic with any questions or concerns. documented in this encounter Plan of Treatment Upcoming Encounters Date Type Specialty Care Team Description 05/26/2022 Office Visit Otolaryngology Ricardo Panda PA [facility] [place] [address] (Wo rk) 06/02/2022 Infusion Hematology and Oncology 06/16/2022 Infusion Hematology and Oncology 06/21/2022 Office Visit Neurology Tyler Rojas MD [facility] Neurology [place], [place] [phone] (Wo rk) 06/30/2022 Infusion Hematology and Oncology 07/14/2022 Infusion Hematology and Oncology 07/28/2022 Infusion Hematology and Oncology 08/11/2022 Infusion Hematology and Oncology 11/04/2022 Office Visit Rheumatology Dante Freedman PA [facility] RHEUMATOLOGY [place], [place] [address] (Wo rk) documented as of this encounter Procedures Procedure Name Priority Date/Time Associated Diagnosis Comme nts POCT GLUCOSE Routine 11/18/2021 12:53 PM Results for this EDT procedure are i n the results section . documented in this encounter Results POCT Glucose (11/18/2021 12:53 PM EDT) athologist Signature POC Glucose 165 65 - 199 [facility] mg/dL [facility] Comment: Supplemental ranges: <140 mg/dL before meals <180 mg/dL all other times of the day Specimen Anatomical Collection Method Collection Time Receive d Time (Source) Location / / Volume Laterality Blood 11/18/2021 12:53 11/18/2021 PM EDT 12:[address] Cami Croft MD POINT OF CARE TEST ORDERABLE S Performing Organization Address City/State/[place] [address] documented in this encounter Visit Diagnoses Diagnosis Anemia of chronic renal failure, stage 4 (severe) documented in this encounter Administered Medications Inactive Administered Medications - up to 3 most recent administrations Medication Order MAR Action Action Date Dose Rate Site acetaminophen (Tylenol) tablet Given 11/18/2021 12:55 PM EDT 975 mg 975 mg 975 mg, Oral, ONCE, 1 dose, On Tue11/18/21 at 1245, Give prior to patient's infusion. Maximum dose of acetaminophen is 4,000 mg from all sources in 24 hours, Routine darbepoetin cristy-polysorbate (Aranesp) (300 Given 10/24 1:49 PM EDT 300 mcg mcg/0.6 mL) injection 300 mcg 300 mcg, Subcutaneous, ONCE, 1 dose, On Tue11/18/21 at 1245, Hold parameters for MDS and chemotherapy-induced anemia: Hemoglobin greater than or equal to 10 gm/dL Hematocrit greater than or equal to 30% Hold parameters for CKD: Hemoglobin greater than or equal to 12 gm/dL Hematocrit greater than or equal to 36%, Routine, What is the indication of use? Chronic Kidney Disease (CKD) diphenhydrAMINE (Benadryl) capsule 25 mg Given 11/18/2021 12:55 PM EDT 25 mg 25 mg, Oral, ONCE, 1 dose, On Tue11/18/21 at 1245, Give prior to patient's infusion., Routine hydrocortisone sod succ (pf) (Solu-CORTEF) Given 11/18/2021 1:00 PM EDT 100 mg (100 mg/2 mL) injection 100 mg 100 mg, Intravenous, ONCE, 1 dose, On Tue11/18/21 at 1245, Give prior to patient's infusion. iron sucrose (Venofer) (20 mg/mL) for slow IV Given 1:46 PM EDT 200 mg push 200 mg 200 mg, Intravenous, ONCE, 1 dose, On Tue11/18/21 at 1315, Administer over 5 Minutes, Patients should be closely monitored for signs of hypersensitivity during and for at least 30 min after each administration. The observation period is not needed for patients who have demonstrated tolerability. documented in this encounter Care Teams Spooling Supervisor Relationship Specialty Start Date End Date Violetta Sanford MD PCP - General 04/02/14 [address] [place] [address] documented as of this encounter
--- OUTSIDE RECORDS SUMMARY | 2022-05-24 10:47 | XMS_ITS | Encounter Summary ---
:1955 Author Organization [facility] [place] [address] Care Team Providers Name Role Phone Violetta Sanford MD Primary Care Provider Reason for Visit Reason Comments Injections aranesp Treatment/Therapy Plan Authorization (Routine) - Authorized Specialty Diagnoses / Procedures Referred By Contact Refer red To Contact Hematology and Diagnoses CKD (chronic kidney disease) stage 4, GFR 15-29 ml/min Nicky Baez Hem Onc Office Oncology Procedures ALFREDA Ramirez MD [address] [place] [address] HEMATOLOGY/ONCOLOGY [phone] [place] [address] Referral ID Status Reason Start Date Expiration Date Visits V isits Requested Authorized [id number] Authorized 10/08/2020 06/23/2022 99 99 Encounter Details Date Type Department Care Team Description 01/13/2022 Infusion Hematology Oncology at [facility] of chronic renal [facility] failure, stage 4 (severe) [address] [place] [phone] Social History Tobacco Use Types [...] documented as of this encounter Progress Notes Jumana Saab RN - 01/13/2022 11:30 AM EDT INFUSION THERAPY ADMINISTRATION NOTES DIAGNOSIS: Iron Deficiency/CKD REASON FOR VISIT: Aranesp SUBJECTIVE Reuben offers no complaints. OBJECTIVE LAB DATA: From 01/13/22 WBC 6.82, HGB 8.8, HCT 29.2, PLT 198, ANC 3.73, BUN 43 , Cr 3.2, Ferritin 187 Pre administration: Medication orders independently verified for drug name, route, and dosage per patient's height, weight and BSA by Jumana Saab, SHEILA and [facility]. REACTIONS (DESCRIPTION, TIME, INTERVENTION AND EFFECTIVENESS) none ASSESSMENT Reuben was awake, alert and tolerated treatment well. Aranesp given in [place]. PLAN Return to clinic in 2 weeks. documented in this encounter Plan of Treatment Upcoming Encounters Date Type Specialty Care Team Description 05/26/2022 Office Visit Otolaryngology Ricardo Panda PA [facility] [address] [place], [place] [address] (Wo gregg) 06/02/2022 Infusion Hematology and Oncology 06/16/2022 Infusion Hematology and Oncology 06/21/2022 Office Visit Neurology Tyler Rojas MD [facility] Neurology [place], [place] [phone] (Wo rk) 06/30/2022 Infusion Hematology and Oncology 07/14/2022 Infusion Hematology and Oncology 07/28/2022 Infusion Hematology and Oncology 08/11/2022 Infusion Hematology and Oncology 11/04/2022 Office Visit Rheumatology Dante Freedman PA [facility] RHEUMATOLOGY [place], [place] [address] (Oscar escobedo) documented as of this encounter Visit Diagnoses Diagnosis Anemia of chronic renal failure, stage 4 (severe) documented in this encounter Administered Medications Inactive Administered Medications - up to 3 most recent administrations Medication Order MAR Action Action Date Dose Rate Site darbepoetin cristy-polysorbate Given 01/13/2022 11:49 AM 300 mcg Right Arm (Aranesp) (300 mcg/0.6 mL) EDT injection 300 mcg 300 mcg, Subcutaneous, ONCE, 1 dose, On Tue01/13/22 at 1200, Hold parameters for MDS and chemotherapy-induced anemia: Hemoglobin greater than or equal to 10 gm/dL Hematocrit greater than or equal to 30% Hold parameters for CKD: Hemoglobin greater than or equal to 12 gm/dL Hematocrit greater than or equal to 36%, Routine, What is the indication of use? Chronic Kidney Disease (CKD) documented in this encounter Care Teams Fashion Consultant Sales Relationship Specialty Start Date End Date Violetta Sanford MD PCP - General 04/02/14 [address] [place] [address] documented as of this encounter
--- OUTSIDE RECORDS SUMMARY | 2022-05-24 10:47 | XMS_ITS | Encounter Summary ---
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 Amputee, below knee; [place], [place] CENTER H/O kidney transplant; [id number] RHEUMATOLOGY Immunosuppression; [phone] [place] Chronic obstruc tive pulmonary disease, unspecified COPD type 32580 Social History Tobacco Use Types Packs/Day Years [...] Sign Reading Time Taken Comments Blood Pressure 159/54 11/04/2021 9:59 AM EDT Pulse 78 11/04/2021 9:59 AM EDT Temperature 37.2 ??C (98.9 ??F) 11/04/2021 9:59 AM EDT Respiratory Rate - - Oxygen Saturation 100% 11/04/2021 9:59 AM EDT Inhaled Oxygen Concentration - - Weight - - Height 193 cm (6' 4) 11/04/2021 9:59 AM EDT Body Mass Index - - documented in this encounter Patient Instructions Patient InstructionsSDante rasmusesn PA - 11/04/2021 10:43 AM EDT 1 year follow up documented in this encounter Progress Notes Dante Freedman PA - 11/04/2021 10:30 AM EDTSummary: OA Rheumatology Outpatient Note Chart review conducted prior to the visit includes review of PMHx, medications, allergies, and prioroffice notes. The most pertinent findings are listed below. The Patient History Form was reviewed with the patient, which included review of ROS, social hx, pmhx, famhx, current and prior medications, allergies, IZs, and ADLs. The form is scanned into the patient's chart. History of Present Illness: Leroy Torres is a 66 y.o. male who presents today for evaluation of OA. 05/05/21:Impression/Recommendations : Leroy Torres is a 65 y.o. male who presents today with osteoarthritis patient with failing kidney transplant being followed carefully. Patient has failed conservative measures namely topical preparations [id number] and paraffin. Patient reports no good success he continues to have some ongoing stiffness previous x-rays were suggestive of low-grade osteoarthritis. He has only minor morning stiffness but significant smoldering hand pain. He remains quite active. His options are extremely limited at this point. After review of the options he elected for a left wrist intra-articular injectionusing sterile technique the wrist was prepared with ChloraPrep and alcohol and 10 mg of Depo- Medrol was injected directly into the joint hemostasis was obtained he was made aware of the post injection course. Will call and report whether or not this is provided any relief in the next several days further changes pending his clinical course. Patient and in agreement with this plan. Interval History: Patient presents today for follow-up. Continues to report hand pain. He has had intra-articular injections of the MCPs and wrists without improvement in his symptoms there is been no fevers infectious-like symptoms he remains carefully followed by transplant. For his transplant he continues on Prograf and mycophenolate. There is been no red warm swollen joints fevers or infectious-like symptoms. He reports his tremor followed by neurology has not changed in quite some time in the past he was on gabapentin it was discontinued because he did not like taking it multiple medications. He denied any side effects with that medication. Review of Systems Constitutional: Negative for anorexia, weight loss, chills and sleep disturbance. Respiratory: Negative for cough, orthopnea and pleuritic pain. Gastrointestinal: Negative for abdominal discomfort, steatorrhea and trouble swallowing. HENT: Negative. Hematologic/Lymphatic: Negative. Allergic/Immunologic: Positive for immunocompromised state. Negative for recurrent infections. Musculoskeletal: Positive for stiffness (hands). Negative for joint pain, myalgias, joint swelling and fracture. Endocrine: Negative for Cushingoid appearance. Cardiovascular: Negative for syncope. Skin: Negative for dry skin, urticaria, blister and erythema. Allergies Allergies Allergen Reactions ??? Penicillins Anaphylaxis ??? Iftikhar Inhibitors Cough ??? Clindamycin Hcl Rash ??? Allergenic Extracts Birch and Nut Trees, cats, dust, pollen bird feathers ??? Ibuprofen ??? Sulfamethoxazole-Trimethoprim Medications Current Outpatient Medications on File Prior to Visit Medication Sig Dispense Refill ??? primidone (Mysoline) 50 mg Tablet Take 1 tablet by mouth 4 times daily. 120 tablet 3 ??? prednisoLONE acetate (Pred-Forte) 1 % Drops, Suspension Instill 4 drops twice daily left ear 5 mL 0 ??? CellCept 250 mg Capsule TAKE 2 [...] Gilberto 2 Sensor Kit 1 each by [facility].(Non-Drug; Combo Route) route every 14 days. Use to continuously monitor blood glucose. Scan at least 4 times per day. 6 kit 3 ??? FreeStyle Gilberto 2 [place] [facility] Use to continuously monitor blood glucose. Scan [...] 14 Day Sensor Kit 1 each by [facility].(Non-Drug; Combo Route) route every 14 days. Use to continuously monitor blood glucose. Scan at least 5 times per day. DX: E11.65 6 kit 3 ??? darbepoetin cristy in polysorbat 10 mcg/0.4 mL Syringe Inject 300 mg as directed as needed. ??? cyanocobalamin, Vitamin B-12, (Vitamin B-12) 100 mcg Tablet Take 100 mcg by mouth daily. ??? Blood-Glucose Sensor (Dexcom G6 Sensor) Device by [facility].(Non-Drug; Combo Route) route. Sensor, hand binder stripper andtransmitter ??? metoprolol succinate XL (Toprol-XL) 50 mg Tablet Sustained Release 24 hr Take 1 tablet by mouth daily. 90 tablet 1 ??? amLODIPine (Norvasc) 10 mg Tablet Take 0.5 tablets by mouth daily. 90 tablet 3 ??? fluticasone propionate (FLONASE) 50 mcg/actuation [place], Suspension INSTILL 2 SPRAYS INTO EACH NOSTRIL [...] gauge x 1/2 Needle 1 Device by [facility].(Non- Drug; Combo Route) route 3 times daily. [...] Reported on 08/06/2016 ??? Miscellaneous Medical Supply [facility] 4 Devices by [facility].(Non-Drug; Combo Route) route daily. Rubber sheath for leg prosthesis (2 pairs) 4 each PRN ??? BD INSULIN PEN NEEDLE UF ORIG 29 gauge x 1/2 Needle 0 ??? aspirin 81 mg EC tablet Take 81 mg by mouth daily. No current facility-administered medications on file prior to visit. PMHX Patient Active Problem List Diagnosis Code ??? [...] (chronic obstructive pulmonary disease) J44.9 ??? 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 [...] state due to drug therapy D84.821, Z79.899 SurgHX Past Surgical History: Procedure Laterality Date ??? [...] Biopsy Bone Marrow 10/22/2021 Richar Lo MD [facility] RAD CT SCAN ??? PRO AMPUTATION LOW LEG THRU TIB/FIB 06/21/2011 ??AMPUTATION, BELOW-KNEE performed by HENNA GAMINO JR at [facility] MAIN OR ??? PRO LAP, APPENDECTOMY 06/16/2013 LAPAROSCOPIC APPENDECTOMY performed by Angel Mccann MD at [facility] MAIN OR ??? US RENAL TRANSPLANT LEFT Left 06/26/2019 US Renal Transplant Left 06/26/2019 [facility] RAD ULTRASOUND Physical Examination: BP 159/54 Pulse 78 Temp 37.2 ??C (98.9 ??F) (Temporal) Ht 193 cm (6' 4) SpO2 100% BMI 34.08 kg/m?? Patient with no peripheral synovitis on exam, bilateral below the knee prosthesis, patient lacks about 5 degrees of full extension of the right elbow. Hands full fist with early [place]ber[place] nodes. Left hand with no synovial thickening I can clearly palpate the joint lines on the PIPs and MCPs no MCP squeeze tenderness no effusions noted mild bilateral CMC squaring right hand with second and third MCP with clear palpation of bilateral joint lines. Negative Tinel's negative Phalen's. Physical Exam Constitutional: General: He is not in acute distress. Appearance: He is obese. He is not ill-appearing, toxic-appearing or diaphoretic. HENT: Head: Normocephalic and atraumatic. Right Ear: External ear normal. Left Ear: External ear normal. Nose: Nose normal. Eyes: Conjunctiva/sclera: Conjunctivae normal. Pulmonary: Breath sounds: Normal breath sounds. Abdominal: Palpations: Abdomen is soft. Tenderness: There is no guarding or rebound. Musculoskeletal: General: No swelling, tenderness or signs of injury. Skin: General: Skin is warm and dry. Coloration: Skin is not jaundiced or pale. Findings: No bruising, erythema, lesion or rash. Neurological: Mental Status: He is alert and oriented to person, place, and time. Psychiatric: Mood and Affect: Mood normal. Behavior: Behavior normal. Thought Content: Thought content normal. Laboratory Data: Component Latest Ref Rng & Units 10/22/2021 Glucose Lvl 65 - 199 mg/dL 118 BUN 10 - 20 mg/dL 47 (H) Creatinine 0.80 - 1.50 mg/dL 3.78 (H) Sodium 135 - 145 mmol/L 135 Potassium 3.5 - 5.0 mmol/L 5.7 (H) Chloride 98 - 107 mmol/L 110 (H) CO2 22 - 31 mmol/L 17 (L) Anion Gap 5 - 15 mmol/L 8 Calcium 8.5 - 10.5 mg/dL 9.0 Total Protein 6.1 - 8.0 g/dL 7.3 Albumin 3.2 - 5.2 g/dL 3.6 AST 0 - 39 unit/L 13 ALT 0 - 55 unit/L 12 Alk Phos 40 - 130 unit/L 111 Total Bilirubin 0.2 - 1.3 mg/dL 0.3 Estimated GFR >=60 mL/min/1.73 m?? 15 (L) Neutrophils % % 59.5 Neutr Abs (ANC) 1.70 - 6.10 x10(3)/mcL 3.57 Lymphocytes % % 26.1 Lymphocytes Abs 0.9 - 3.2 x10(3)/mcL 1.6 Monocytes % % 10.5 Monocyte Abs 0.3 - 0.9 x10(3)/mcL 0.6 Eosinophils % % 2.8 Eosinophils Abs 0.0 - 0.4 x10(3)/mcL 0.2 Basophils % % 0.8 Basophils Abs 0.0 - 0.1 x10(3)/mcL 0.0 Immature Gran % % 0.30 Courtney Gran Abs 0.00 - 0.04 x10(3)/mcL 0.02 Impression/Recommendations : Leroy Torres is a 66 y.o. male who presents today with OA with anemia due to end-stage renal disease, status post kidney transplant. Patient with ongoing low grade hand arthralgias patient having failed conservative measures. Patient without any inflammatory features by exam, question of neuropathic component to his arthralgias, patient has failed conservative measures including paraffin treatments. Hand and wrist injections were not helpful. Will consider a trial of cymbalta 20 mg per day afterpatient completes follow up with neurology. Patient and in agreement. documented in this encounter Plan of Treatment Upcoming Encounters Date Type Specialty Care Team Description 05/26/2022 Office Visit Otolaryngology Ricardo Panda PA [facility] [address] [place] [address] (Wo gregg) 06/02/2022 Infusion Hematology and Oncology 06/16/2022 Infusion Hematology and Oncology 06/21/2022 Office Visit Neurology Tyler Rojas MD [facility] [address] [place], [place] [phone] (Wo gregg) 06/30/2022 Infusion Hematology and Oncology 07/14/2022 Infusion Hematology and Oncology 07/28/2022 Infusion Hematology and Oncology 08/11/2022 Infusion Hematology and Oncology 11/04/2022 Office Visit Rheumatology Dante Freedman PA [facility] RHEUMATOLOGY [place], [place] [address] (Wo rk) documented as of this encounter Visit Diagnoses Diagnosis Osteoarthritis of multiple joints, unspe cified osteoarthritis type - Primary 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
--- OUTSIDE RECORDS SUMMARY | 2022-05-24 10:47 | XMS_ITS | Encounter Summary ---
:1955 Author Organization [facility] [address] Care Team Providers Name Role Phone Violetta Sanford MD Primary Care Provider Encounter Details Date Type Department Care Team Description 12/25/2021 Ancillary Procedure Radiology Library at Violetta Sanford MD [address] [place] [phone] (Wo rk) Social History Tobacco Use Types [...] Otolaryngology Ricardo Panda PA [facility] [address] [place] [address] (Wo rk) 06/02/2022 Infusion Hematology and Oncology 06/16/2022 Infusion Hematology and Oncology 06/21/2022 Office Visit Neurology Tyler Rojas MD [facility] Neurology [place], [place] [phone] (Wo rk) 06/30/2022 Infusion Hematology and Oncology 07/14/2022 Infusion Hematology and Oncology 07/28/2022 Infusion Hematology and Oncology 08/11/2022 Infusion Hematology and Oncology 11/04/2022 Office Visit Rheumatology Dante Freedman PA [facility] RHEUMATOLOGY [place], [place] [address] (Wo rk) documented as of this encounter Procedures Procedure Name Priority Date/Time Associated Diagnosis Comme nts FILM LIBRARY Routine 12/25/2021 12:00 AM Results for this STORAGE ONLY CT EDT procedure ar e in HEAD the results section. documented in this encounter Results Film Library- Storage Only CT Head (12/25/2021 12:00 AM EDT) Specimen (Source) Anatomical Location Collection Method / Collectio n Time Received Time / Laterality Volume Narrative CAITLIN - 12/28/2021 6:31 AM EDT This exam is auto-finalizing. It's purpo se is for storage only. Violetta Sanford MD IMG FILM LIBRARY ORDERABLES Performing Organization Address City/State/ZIP Code Phon e Number [place], [place] documented in this encounter Visit Diagnoses Not on filedocumented in this encounter Care Teams Coding Technician Relationship Specialty Start Date End Date Violetta Sanford MD PCP - General 04/02/14 [address] [place] [address] documented as of this encounter
--- OUTSIDE RECORDS SUMMARY | 2022-05-24 10:47 | XMS_ITS | Encounter Summary ---
:1955 Author Organization [facility] [place] [address] Care Team Providers Name Role Phone Violetta Sanford MD Primary Care Provider Encounter Details Date Type Department Care Team Description 11/20/2021 External Results Solid Organ Transpla nt at [facility] [place] [address] Social History Tobacco Use Types Packs/Day [...] 05/26/2022 Office Visit Otolaryngology Ricardo Panda PA [facility] [address] [place] [address] (Wo rk) 06/02/2022 Infusion Hematology and Oncology 06/16/2022 Infusion Hematology and Oncology 06/21/2022 Office Visit Neurology Tyler Rojas MD [facility] Dr [address]i [place] [address] (Wo rk) 06/30/2022 Infusion Hematology and Oncology 07/14/2022 Infusion Hematology and Oncology 07/28/2022 Infusion Hematology and Oncology 08/11/2022 Infusion Hematology and Oncology 11/04/2022 Office Visit Rheumatology Dante Freedman PA [facility] RHEUMATOLOGY [place], [place] [address] (Wo rk) documented as of this encounter Procedures Procedure Name Priority Date/Time Associated Diagnosis Comme nts LAB SCAN Routine 11/18/2021 Results for thi s procedure are in the resu lts section. documented in this encounter Results Scan Doc: Lab (11/18/2021) Narrative This result has an attachment that is no t available. Historical Provider MD SANDOVAL MGR SCAN EXT ORDR/RSLT documented in this encounter Visit Diagnoses Not on filedocumented in this encounter Care Teams Slitter And Rewinder Relationship Specialty Start Date End Date Violetta Sanford MD PCP - General 04/02/14 [address] [place] [address] documented as of this encounter
--- OUTSIDE RECORDS SUMMARY | 2022-05-24 10:47 | XMS_ITS | Encounter Summary ---
:1955 Author Organization [facility] [place] [address] Care Team Providers Name Role Phone Violetta Sanford MD Primary Care Provider Encounter Details Date Type Department Care Team Description 01/06/2022 Telephone Otolaryngology at [facility] [place] [address] Social History Tobacco Use Types Packs/Day [...] Notes Telephone Encounter - Sylvia Dyson - 01/06/2022 1:48 PM EDT Providers office called today after her appointment with the pt, he is having left sided ear pain with drainage and the pain is going down his jaw I sent her to the nurse line but I also placing a phone note documented in this encounter Plan of Treatment Upcoming Encounters Date Type Specialty Care Team Description 05/26/2022 Office Visit Otolaryngology Ricardo Panda PA [facility] [place], [place] [address] (Wo rk) 06/02/2022 Infusion Hematology and Oncology 06/16/2022 Infusion Hematology and Oncology 06/21/2022 Office Visit Neurology Tyler Rojas MD [facility] Neurology [place], [place] [phone] (Wo rk) 06/30/2022 Infusion Hematology and Oncology 07/14/2022 Infusion Hematology and Oncology 07/28/2022 Infusion Hematology and Oncology 08/11/2022 Infusion Hematology and Oncology 11/04/2022 Office Visit Rheumatology Dante Freedman PA [facility] RHEUMATOLOGY [place], [place] [address] (Wo rk) documented as of this encounter Visit Diagnoses Not on filedocumented in this encounter Care Teams Paid Internship Relationship Specialty Start Date End Date Violetta Sanford MD PCP - General 04/02/14 [address] [place] [address] documented as of this encounter
--- OUTSIDE RECORDS SUMMARY | 2022-05-24 10:47 | XMS_ITS | Encounter Summary ---
:1955 Author Organization [facility] [address] Care Team Providers Name Role Phone Violetta Sanford MD Primary Care Provider Encounter Details Date Type Department Care Team Description 01/07/2022 Telephone Otolaryngology at [facility] [place] [address] Social History Tobacco Use Types Packs/Day Years [...] Notes Telephone Encounter - Nuris Woody - 01/11/2022 8:59 AM EDT Patient called in to schedule appointment. He accepted 01/14 at 9:[address] Scott.I updated Niyah as well. Telephone Encounter - Niyah Ricci - 01/07/2022 3:55 PM EDT Received the following message: Can you please arrange for FU for this patient in one week with Dr. Scott or Mele Aguiar? He is an established patient that was seen in ED yesterday for left acute otitis media. Thank you, ? Ellyn Called phlyiciat at [phone] - left generic voicemail for patient to callback Holding time: 01/14 at 9:20am with Dr. Scott documented in this encounter Plan of Treatment Upcoming Encounters Date Type Specialty Care Team Description 05/26/2022 Office Visit Otolaryngology Ricardo Aguiar PA [facility] [address] [place], [place] [address] (Wo rk) 06/02/2022 Infusion Hematology and Oncology 06/16/2022 Infusion Hematology and Oncology 06/21/2022 Office Visit Neurology Tyler Rojas MD [facility] Neurology [place], [place] [phone] (Wo rk) 06/30/2022 Infusion Hematology and Oncology 07/14/2022 Infusion Hematology and Oncology 07/28/2022 Infusion Hematology and Oncology 08/11/2022 Infusion Hematology and Oncology 11/04/2022 Office Visit Rheumatology Dante Freedman PA [facility] RHEUMATOLOGY [place], [place] [address] (Wo rk) documented as of this encounter Visit Diagnoses Not on filedocumented in this encounter Care Teams Ground Source Heat Pump Technician Relationship Specialty Start Date End Date Violetta Sanford MD PCP - General 04/02/14 [address] [place] [address] documented as of this encounter
--- OUTSIDE RECORDS SUMMARY | 2022-05-24 10:47 | XMS_ITS | Encounter Summary ---
:1955 Author Organization [facility] [place] [address] Care Team Providers Name Role Phone Violetta Sanford MD Primary Care Provider Reason for Visit Reason Comments IV Medication Venofer Injections Aranesp Treatment/Therapy Plan Authorization (Routine) - Pending Review Specialty Diagnoses / Procedures Referred By Contact Refer red To Contact Diagnoses CKD (chronic kidney disease) stage 4, GFR 15-29 ml/min Nicky Baez MD [facility] D [facility] HEMATOLOGY/[place] [address] Referral ID Status Reason Start Date Expiration Date Visits V isits Requested Authorized [id number] Pending 11/10/2021 11/10/2022 99 99 Review Encounter Details Date Type Department Care Team Description 12/16/2021 Infusion Hematology Oncology at [facility] of chronic renal [facility] failure, stage 4 (severe) [address] [place] [phone] Social History Tobacco Use Types [...] Sign Reading Time Taken Comments Blood Pressure 144/52 12/16/2021 11:57 AM EDT Pulse 68 12/16/2021 11:57 AM EDT Temperature 36.8 ??C (98.2 ??F) 12/16/2021 11:57 AM EDT Respiratory Rate 20 12/16/2021 11:57 AM EDT Oxygen Saturation 99% 12/16/2021 11:57 AM EDT Inhaled Oxygen Concentration - - Weight 129.3 kg (285 lb) 12/16/2021 11:57 AM EDT Height 193 cm (6' 3.98) 12/16/2021 11:57 AM EDT Body Mass Index 34.71 12/16/2021 11:57 AM EDT documented in this encounter Progress Notes Lindsay Lerma RN - 12/16/2021 12:00 PM EDT INFUSION THERAPY ADMINISTRATION NOTES DIAGNOSIS: Iron Deficiency REASON FOR VISIT: Venofer & Aranesp SUBJECTIVE Reuben offers no complaints. OBJECTIVE LAB DATA: WBC 6.31, HGB 8.1, HCT 27.6, PLT 189, ANC 3.80, BUN 37, Cr 3.4, Ferritin 197 Pre administration: Infusion orders independently verified for drug name, route, and dosage per patient's height, weightand BSA by Lindsay Lerma, SHEILA and [facility]. REACTIONS (DESCRIPTION, TIME, INTERVENTION AND EFFECTIVENESS) none ASSESSMENT Reuben was awake, alert and tolerated treatment well. Aranesp given in [place]. Patient remained in clinic for 30 min post infusion to monitor for reactions. PLAN Return to clinic in 2 weeks. documented in this encounter Plan of Treatment Upcoming Encounters Date Type Specialty Care Team Description 05/26/2022 Office Visit Otolaryngology Ricardo Panda PA [facility] Dr [address] [place] [address] (Wo rk) 06/02/2022 Infusion Hematology and Oncology 06/16/2022 Infusion Hematology and Oncology 06/21/2022 Office Visit Neurology Tyler Rojas MD [facility] Neurology [place], [place] [phone] (Wo rk) 06/30/2022 Infusion Hematology and Oncology 07/14/2022 Infusion Hematology and Oncology 07/28/2022 Infusion Hematology and Oncology 08/11/2022 Infusion Hematology and Oncology 11/04/2022 Office Visit Rheumatology Dante Freedman PA [facility] RHEUMATOLOGY [place], [place] [address] (Wo rk) documented as of this encounter Visit Diagnoses Diagnosis Anemia of chronic renal failure, stage 4 (severe) documented in this encounter Administered Medications Inactive Administered Medications - up to 3 most recent administrations Medication Order MAR Action Action Date Dose Rate Site acetaminophen (Tylenol) tablet Given 12/16/2021 12:08 PM EDT 975 mg 975 mg 975 mg, Oral, ONCE, 1 dose, On Tue12/16/21 at 1215, Give prior to patient's infusion. Maximum dose of acetaminophen is 4,000 mg from all sources in 24 hours, Routine darbepoetin cristy-polysorbate Given 12/16/2021 12:31 PM EDT 300 m cg Right Arm (Aranesp) (300 mcg/0.6 mL) injection 300 mcg 300 mcg, Subcutaneous, ONCE, 1 dose, On Tue12/16/21 at 1215, Hold parameters for MDS and chemotherapy-induced anemia: Hemoglobin greater than or equal to 10 gm/dL Hematocrit greater than or equal to 30% Hold parameters for CKD: Hemoglobin greater than or equal to 12 gm/dL Hematocrit greater than or equal to 36%, Routine, What is the indication of use? Chronic Kidney Disease (CKD) diphenhydrAMINE (Benadryl) capsule 25 mg Given 12/16/2021 12:08 PM EDT 25 mg 25 mg, Oral, ONCE, 1 dose, On Tue12/16/21 at 1215, Give prior to patient's infusion., Routine iron sucrose (Venofer) (20 mg/mL) for slow Given 12/16/2021 12:31 PM EDT 200 mg IV push 200 mg 200 mg, Intravenous, ONCE, 1 dose, On 5/25/22 at 1245, Administer over 5 Minutes, Patients should be closely monitored for signs of hypersensitivity during and for at least 30 min after each administration. The observation period is not needed for patients who have demonstrated tolerability. documented in this encounter Care Teams Stack Matcher Relationship Specialty Start Date End Date Violetta Sanford MD PCP - General 04/02/14 [address] [place] [address] documented as of this encounter
--- OUTSIDE RECORDS SUMMARY | 2022-05-24 10:47 | XMS_ITS | Encounter Summary ---
:1955 Author Organization [facility] [place] [address] Care Team Providers Name Role Phone Violetta Sanford MD Primary Care Provider Reason for Visit Reason Comments Injections Aranesp Treatment/Therapy Plan Authorization (Routine) - Authorized Specialty Diagnoses / Procedures Referred By Contact Refer red To Contact Hematology and Diagnoses CKD (chronic kidney disease) stage 4, GFR 15-29 ml/min Nicky Baez Hem Onc Office Oncology Procedures ALFREDA Ramirez MD [address] [place] [address] HEMATOLOGY/ONCOLOGY [id number] [place] [address] Referral ID Status Reason Start Date Expiration Date Visits V isits Requested Authorized [id number] Authorized 10/08/2020 06/23/2022 99 99 Encounter Details Date Type Department Care Team Description 12/30/2021 Infusion Hematology Oncology at [facility] of chronic renal [facility] failure, stage 4 (severe) [address] [place] [phone] Social History Tobacco Use Types [...] Sign Reading Time Taken Comments Blood Pressure 135/57 12/30/2021 11:30 AM EDT Pulse 67 12/30/2021 11:30 AM EDT Temperature 36.8 ??C (98.2 ??F) 12/30/2021 11:30 AM EDT Respiratory Rate 18 12/30/2021 11:30 AM EDT Oxygen Saturation 98% 12/30/2021 11:30 AM EDT Inhaled Oxygen Concentration - - Weight 129.3 kg (285 lb 0.9 oz) 12/30/2021 11:30 AM EDT Height 193 cm (6' 3.98) 12/30/2021 11:30 AM EDT Body Mass Index 34.71 12/30/2021 11:30 AM EDT documented in this encounter Progress Notes Lindsay Lerma RN - 12/30/2021 12:00 PM EDT INFUSION THERAPY ADMINISTRATION NOTES DIAGNOSIS: Iron Deficiency/CKD REASON FOR VISIT: Aranesp SUBJECTIVE Reuben offers no complaints. OBJECTIVE LAB DATA: From 12/16/21 WBC 6.31, HGB 8.1, HCT 27.6, PLT 189, ANC 3.80, BUN 37, Cr 3.4, Ferritin 197 Pre administration: Medication orders independently verified for drug name, route, and dosage per patient's height, weight and BSA by Lindsay Lerma RN and [facility]. REACTIONS (DESCRIPTION, TIME, INTERVENTION AND EFFECTIVENESS) none ASSESSMENT Reuben was awake, alert and tolerated treatment well. Aranesp given in [place]. PLAN Return to clinic in 2 weeks. documented in this encounter Plan of Treatment Upcoming Encounters Date Type Specialty Care Team Description 05/26/2022 Office Visit Otolaryngology Ricardo Panda PA [facility] [address] [place], [place] [address] (Wo rk) 06/02/2022 Infusion Hematology and Oncology 06/16/2022 Infusion Hematology and Oncology 06/21/2022 Office Visit Neurology Tyler Rojas MD [facility] er Neurology [place], [place] [phone] (Wo rk) 06/30/2022 Infusion Hematology and Oncology 07/14/2022 Infusion Hematology and Oncology 07/28/2022 Infusion Hematology and Oncology 08/11/2022 Infusion Hematology and Oncology 11/04/2022 Office Visit Rheumatology Dante Freedman PA [facility] RHEUMATOLOGY [place], [place] [address] (Wo rk) documented as of this encounter Visit Diagnoses Diagnosis Anemia of chronic renal failure, stage 4 (severe) documented in this encounter Administered Medications Inactive Administered Medications - up to 3 most recent administrations Medication Order MAR Action Action Date Dose Rate Site darbepoetin cristy-polysorbate Given 12/30/2021 11:57 AM EDT 300 m cg Right Arm (Aranesp) (300 mcg/0.6 mL) injection 300 mcg 300 mcg, Subcutaneous, ONCE, 1 dose, On Tue12/30/21 at 1200, Hold parameters for MDS and chemotherapy-induced anemia: Hemoglobin greater than or equal to 10 gm/dL Hematocrit greater than or equal to 30% Hold parameters for CKD: Hemoglobin greater than or equal to 12 gm/dL Hematocrit greater than or equal to 36%, Routine, What is the indication of use? Chronic Kidney Disease (CKD) documented in this encounter Care Teams Chain Pegger Relationship Specialty Start Date End Date Violetta Sanford MD PCP - General 04/02/14 [address] [place] [address] documented as of this encounter
--- OUTSIDE RECORDS SUMMARY | 2022-05-24 10:47 | XMS_ITS | Encounter Summary ---
:1955 Author Organization [facility] [place] [address] Care Team Providers Name Role Phone Violetta Sanford MD Primary Care Provider Reason for Visit Reason Onset Date Comments Abnormal Lab 11/18/2021 Lab tracking Encounter Details Date Type Department Care Team Description 11/18/2021 Telephone Hematology/Oncology at Brittany Vera RN Abnormal Lab (Lab [facility] tracking) [address] [place] [phone] Social History Tobacco Use Types Packs/Day [...] Telephone Encounter - Brittany Vera RN - 11/18/2021 11:53 AM EDT LAB TRACKING Leroy Torres [id number] 1955 ?? DIAGNOSIS: Anemia d/t CKD stage IV, h/o kidney transplant ?? LABS: CBC every 4 weeks as of 05/27/21 ?? MEDICATIONS: Aranesp 300 mcg every 2 weeks if HGB <12 as of 05/27/21 venofer x 3 weeks starting 4/27/22 ?? ASSESSMENT/PLAN: Reviewed labs with Dr Baez. Will get aranesp and venofer today. Labs again in aweek due to drop in HBG.Spoke with pt and he will go to [facility] lab at 11 am on November 25. Latest Reference Range & Units 10/05/21 08:39 10/22/21 11:44 10/22/21 15:05 11/18/21 00:00 WBC 4.0 - 9.5 x10(3)/mcL 6.5 6.0 7.73 (E) RBC 4.58 - 5.54 x10(6)/mcL 2.75 (L) 2.76 (L) Hemoglobin 13.7 - 16.5 g/dL 8.2 (L) 8.2 (L) 7.6 (E) Hematocrit 40.5 - 48.5 % 26.7 (L) 27.1 (L) 25.7 (E) MCV 82.9 - 93.1 fL 97.1 (H) 98.2 (H) MCH 27.5 - 32.1 pg 29.8 29.7 MCHC 32.0 - 35.7 g/dL 30.7 (L) 30.3 (L) RDWSD 36.0 - 45.0 fL 52.1 (H) 51.1 (H) RDWCV 11.4 - 13.8 % 14.7 (H) 14.3 (H) Platelets 145 - 357 x10(3)/mcL 178 169 197 (E) MPV 7.6 - 12.9 fL 8[address] % 0.7 - 2.6 % 2.[address] Abs 0.030 - 0.120 x10(6)/mcL 0.070 Immature Retic% 0.0 - 15.6 % 17.2 (H) Reticulated Hgb 31.3 - 40.2 pg 24.5 (L) NRBC % Auto % 0.0 0.0 NRBC Abs Auto 0.000 - 0.000 x10(3)/mcL 0.000 0.000 Neutr Abs (ANC) 1.70 - 6.10 x10(3)/mcL 3.72 3.57 5.02 (E) Neutrophils % % 57.1 59.5 Immature Gran % % 0.50 [1] 0.30 [2] Lymphocytes % % 27.3 26.1 Monocytes % % 10.7 10.5 Eosinophils % % 3.8 2.8 Basophils % % 0.6 0.8 Courtney Gran Abs 0.00 - 0.04 x10(3)/mcL 0.03 0.02 Lymphocytes Abs 0.9 - 3.2 x10(3)/mcL 1.8 1.6 Monocyte Abs 0.3 - 0.9 x10(3)/mcL 0.7 0.6 Eosinophils Abs 0.0 - 0.4 x10(3)/mcL 0.2 0.2 Basophils Abs 0.0 - 0.1 x10(3)/mcL 0.0 0.0 Iron Stain BM See Comment [3] PT 9.4 - 12.5 sec 12.7 (H) INR 1.1 [4] PTT 25 - 37 sec 30 [5] Sodium 135 - 145 mmol/L 138 135 Potassium 3.5 - 5.0 mmol/L 5.2 (H) [6] 5.7 (H) [7] Chloride 98 - 107 mmol/L 111 (H) 110 (H) CO2 22 - 31 mmol/L 19 (L) 17 (L) Anion Gap 5 - 15 mmol/L 8 8 BUN 10 - 20 mg/dL 44 (H) 47 (H) Creatinine 0.80 - 1.50 mg/dL 3.50 (H) 3.78 (H) 3.7 (E) (L): Data is abnormally low (H): Data is abnormally high (E): External lab result [1] Immature granulocytes(IG's)percentage and absolute count will include metamyelocytes, myelocytes, and promyelocytes. Blood smears from CBCs yielding IG's will be scanned manually for concordance. If this scan disagrees with the automated IG or if promyelocytes are noted, a manual differential will be performed. [2] Immature granulocytes(IG's)percentage and absolute count will include metamyelocytes, myelocytes, and promyelocytes. Blood smears from CBCs yielding IG's will be scanned manually for concordance. If this scan disagrees with the automated IG or if promyelocytes are noted, a manual differential will be performed. [3] See Bone Marrow Report [id number] under Hematopathology Reports. [4] An INR <2.0 indicates adequate procoagulant activity for hemostasis in most patients without underlying bleeding disorders, though the INR may not adequately reflect hemostatic capacity in patients with liver disease and synthetic impairment. The recommended target INR range for therapeutic anticoagulation is 2.0 - 3.0 for most applications, though lower and higher ranges may be appropriate depending on clinical circumstances. [5] The PTT is NOT appropriate for heparin monitoring. Use the Anti-Xa level for heparin monitoring (HEP UFH) or LMWH monitoring (HEP LMW). A PTT less than 37 seconds generally indicates adequate hemostasis. [6] Please note: Patients with WBC >100,000 may have falsely elevated Potassium levels. For accurate Potassium quantification in these patients send serum separator tube (gold top) for subsequent determinations. Contact the Clinical Chemistry Laboratory if there are any questions. [7] Please note: Patients with WBC >100,000 may [...] Panda PA [facility] [address] [place], [place] [address] (Wo gregg) 06/02/2022 Infusion Hematology and Oncology 06/16/2022 Infusion Hematology and Oncology 06/21/2022 Office Visit Neurology Tyler Rojas MD [facility] Neurology [place], [place] [phone] (Wo rk) 06/30/2022 Infusion Hematology and Oncology 07/14/2022 Infusion Hematology and Oncology 07/28/2022 Infusion Hematology and Oncology 08/11/2022 Infusion Hematology and Oncology 11/04/2022 Office Visit Rheumatology Dante Freedman PA [facility] RHEUMATOLOGY [place], [place] [address] (Wo rk) documented as of this encounter Procedures Procedure Name Priority Date/Time Associated Diagnosis Comme nts CBC (WITH DIFF) Routine 11/18/2021 Results for this procedure are in the resu lts section. documented in this encounter Results CBC (with Diff) (11/18/2021) P athologist Signature WBC 7.73 Hemoglobin 7.6 Hematocrit 25.7 Platelets 197 Neutr Abs (ANC) 5.02 Creatinine 3.7 Specimen (Source) Anatomical Location Collection Method / Collectio n Time Received Time / Laterality Volume Blood 11/18/2021 Historical Provider HEMATOLOGY ORDERABLES documented in this encounter Visit Diagnoses Not on filedocumented in this encounter Care Teams Automotive Service Porter Relationship Specialty Start Date End Date Violetta Sanford MD PCP - General 04/02/14 [address] [place] [address] documented as of this encounter
--- OUTSIDE RECORDS SUMMARY | 2022-05-24 10:47 | XMS_ITS | Encounter Summary ---
:1955 Author Organization [facility] [place] [address] Care Team Providers Name Role Phone Violetta Sanford MD Primary Care Provider Encounter Details Date Type Department Care Team Description 01/06/2022 Telephone Otolaryngology at [facility] Eulalia Urban, [place] [phone] Social History Tobacco Use Types Packs/Day [...] Telephone Encounter - Eulalia Urban RN - 01/06/2022 12:25 PM EDT Patient's call returned. Patient left on nurse triage line explaining since his surgery to place ear tubes, with Dr. Scott on 12/29, he's started with headaches, ear ache, sore throat. Patient said he's going to his local urgent care to be evaluated. Attempt to call patient back for update on the visit. VM left with call back number. documented in this encounter Plan of Treatment Upcoming Encounters Date Type Specialty Care Team Description 05/26/2022 Office Visit Otolaryngology Ricardo Panda PA [facility] [place], [place] [address] (Wo rk) 06/02/2022 Infusion Hematology and Oncology 06/16/2022 Infusion Hematology and Oncology 06/21/2022 Office Visit Neurology Tyler Rojas MD [facility] Neurology [place], [place] [phone] (Wo rk) 06/30/2022 Infusion Hematology and Oncology 07/14/2022 Infusion Hematology and Oncology 07/28/2022 Infusion Hematology and Oncology 08/11/2022 Infusion Hematology and Oncology 11/04/2022 Office Visit Rheumatology Dante Freedman PA [facility] RHEUMATOLOGY [place], [place] [address] (Wo rk) documented as of this encounter Visit Diagnoses Not on filedocumented in this encounter Care Teams Laborer Wrecking And Salvaging Relationship Specialty Start Date End Date Violetta Sanford MD PCP - General 04/02/14 [address] [place] [address] documented as of this encounter
--- OUTSIDE RECORDS SUMMARY | 2022-05-24 10:47 | XMS_ITS | Encounter Summary ---
:1955 Author Organization [facility] [place] [address] Care Team Providers Name Role Phone Violetta Sanford MD Primary Care Provider Reason for Visit Reason Onset Date Comments Labs Only 12/16/2021 Lab Tracking Encounter Details Date Type Department Care Team Description 12/16/2021 Telephone Hematology/Oncology at Dulce Quinn, Labs Only (Lab [facility] RN Tracking) [address] [place] [phone] Social History Tobacco Use Types Packs/Day [...] this encounter Miscellaneous Notes Telephone Encounter - Dulce Quinn, RN - 12/16/2021 11:51 AM EDT LAB TRACKING Leroy Torres [id number] 1955 ?? DIAGNOSIS: Anemia d/t CKD stage IV, h/o kidney transplant ?? LABS: CBC every 4 weeks as of 05/27/21 ?? MEDICATIONS: Aranesp 300 mcg every 2 weeks if HGB <12 as of 05/27/21 venofer x 3 weeks starting 11/18/21 ?? ASSESSMENT/PLAN: Reviewed labs with Dr Baez. Due for arensp and venofer (dose 3/3). Labs due in 4 weeks on January 13 prior to visit with provider. Spoke with pt who agrees with plan. Latest Reference Range & Units 11/18/21 00:00 11/26/21 00:00 12/16/21 00:00 WBC 7.73 (E) 6.31 (E) 6.31 (E) Hemoglobin 7.6 (E) 7.7 (E) 8.1 (E) Hematocrit 25.7 (E) 26.3 (E) 27.6 (E) Platelets 197 (E) 181 (E) 189 (E) Neutr Abs (ANC) 5.02 (E) 3.59 (E) 3.8 (E) Potassium 5.2 (E) BUN 37 (E) Creatinine 3.7 (E) 3.4 (E) POC Glucose 65 - 199 mg/dL Alk Phos 138 (E) AST 12 (L) (E) ALT 21 (E) (L): Data is abnormally low (E): External lab result [1] Supplemental ranges: <140 mg/dL before meals <180 mg/dL all other times of the day documented in this encounter Plan of Treatment Upcoming Encounters Date Type Specialty Care Team Description 05/26/2022 Office Visit Otolaryngology Ricardo Panda PA [facility] [address] [place], [place] [address] (Oscar escobedo) 06/02/2022 Infusion Hematology and Oncology 06/16/2022 Infusion Hematology and Oncology 06/21/2022 Office Visit Neurology Tyler Rojas MD [facility] Dr [place], [place] [phone] (Wo gregg) 06/30/2022 Infusion Hematology and Oncology 07/14/2022 Infusion Hematology and Oncology 07/28/2022 Infusion Hematology and Oncology 08/11/2022 Infusion Hematology and Oncology 11/04/2022 Office Visit Rheumatology Dante Freedman PA [facility] ER [address] [place], [place] [address] (Wo rk) documented as of this encounter Procedures Procedure Name Priority Date/Time Associated Diagnosis Comme nts CBC (WITH DIFF) Routine 12/16/2021 Results for this procedure are i n the results section . COMPREHENSIVE METABOLIC Routine 12/16/2021 Resu lts for this PANEL (NON-FASTING) procedur e are in the results section . documented in this encounter Results CBC (with Diff) (12/16/2021) Analysis Performed At Patho logist Time Signature WBC 6.31 [facility] Hemoglobin 8.1 [facility] Hematocrit 27.6 [facility] Platelets 189 [facility] Neutr Abs (ANC) 3.8 [facility] Specimen (Source) Anatomical Location Collection Method / Collectio n Time Received Time / Laterality Volume Blood 12/16/2021 Nicky Baez MD HEMATOLOGY ORDERABLES Performing Organization Address City/[facility]/ZIP [facility] Phon e Number [address] [place] [address] HOSPITAL (ABNORMAL) Comprehensive metabolic panel (non-fasting) (12/16/2021) P athologist Signature BUN 37 [facility] Creatinine 3.4 [facility] Potassium 5.2 [facility] Alk Phos 138 [facility] AST 12 (L) [facility] ALT 21 [facility] Specimen (Source) Anatomical Location Collection Method / Collectio n Time Received Time / Laterality Volume Blood 12/16/2021 Nicky Baez MD CHEMISTRY ORDERABLES Performing Organization Address City/[facility] Phon e Number [address] [place] [place] [address] HOSPITAL documented in this encounter Visit Diagnoses Not on filedocumented in this encounter Care Teams Chart Reader Relationship Specialty Start Date End Date Violetta Sanford MD PCP - General 04/02/14 [address] [place] [address] documented as of this encounter
--- OUTSIDE RECORDS SUMMARY | 2022-05-24 10:47 | XMS_ITS | Encounter Summary ---
:1955 Author Organization [facility] [place] [address] Care Team Providers Name Role Phone Violetta Sanford MD Primary Care Provider Encounter Details Date Type Department Care Team Description 11/24/2021 Notes Only Rheumatology at [facility] Dante Freedman PA [facility] [place] [phone] RHEUMATOLOGY [phone] [place], [place] [address] (Wo rk) Social History Tobacco [...] documented as of this encounter Progress Notes Dante Freedman PA - 11/24/2021 11:06 AM EDT CrCl <30 mL/minute: The boring machine operator vertical's labeling recommends to avoid use; duloxetine and inactive metabolites AUC expected to increase significantly (Lui 2010). When necessary, some experts recommend cautious use of lower initial doses (eg, 30 mg daily); titrate slowly, not to exceed 60 mg once daily; monitor closely for adverse effects (Nadeen 2014; Lui 2010; Dolores 2012; Bernadine 2019). Unable to use cymbalta documented in this encounter Plan of Treatment Upcoming Encounters Date Type Specialty Care Team Description 05/26/2022 Office Visit Otolaryngology Ricardo Panda PA [facility] er [place], [place] [address] (Wo rk) 06/02/2022 Infusion Hematology and Oncology 06/16/2022 Infusion Hematology and Oncology 06/21/2022 Office Visit Neurology Tyler Rojas MD [facility] Neurology [place], [place] [phone] (Wo rk) 06/30/2022 Infusion Hematology and Oncology 07/14/2022 Infusion Hematology and Oncology 07/28/2022 Infusion Hematology and Oncology 08/11/2022 Infusion Hematology and Oncology 11/04/2022 Office Visit Rheumatology Dante Freedman PA [facility] RHEUMATOLOGY [place], [place] [address] (Wo rk) documented as of this encounter Visit Diagnoses Not on filedocumented in this encounter Care Teams Production Cloth Cutter Relationship Specialty Start Date End Date Violetta Sanford MD PCP - General 04/02/14 [address]ino [address] [place] [address] documented as of this encounter
--- OUTSIDE RECORDS SUMMARY | 2022-05-24 10:47 | XMS_ITS | Encounter Summary ---
:1955 Author Organization [facility] [place] [address] Care Team Providers Name Role Phone Violetta Sanford MD Primary Care Provider Reason for Referral Diagnostic Test (Routine) - Authorized Specialty Diagnoses / Procedures Referred By Contact Refer red To Contact Radiology Diagnoses ETD (Eustachian tube dysfunction), left Iraj Scott MD [facility] Rad Ct Scan Procedures CT Temporal Bone wo Contrast (Generic) [facility] [place] [address] [place] [address] Referral ID Status Reason Start Expiration Visits Visits Date Date Requested Authorized [id number] Authorized Specialty 11/19/2021 05/21/2023 1 1 Service Requested Encounter Details Date Type Department Care Team Description 11/19/2021 Orders Only Otolaryngology at [facility] Iraj Scott MD ETD (Eustachian tube [facility]), [place] [address] [place] [address] OTOLARYNGOLOGY [place], [place] [address] Social History Tobacco Use Types [...] 05/26/2022 Office Visit Otolaryngology Ricardo Panda PA [facility] er [place], [place] [address] (Wo rk) 06/02/2022 Infusion Hematology and Oncology 06/16/2022 Infusion Hematology and Oncology 06/21/2022 Office Visit Neurology Tyler Rojas MD [facility] Neurology [place], [place] [phone] (Wo rk) 06/30/2022 Infusion Hematology and Oncology 07/14/2022 Infusion Hematology and Oncology 07/28/2022 Infusion Hematology and Oncology 08/11/2022 Infusion Hematology and Oncology 11/04/2022 Office Visit Rheumatology Dante Freedman PA [facility] ER RHEUMATOLOGY [place], [place] [address] (Wo rk) Scheduled Orders Name Type Priority Associated Diagnoses Order S chedule CT Temporal Bone wo Imaging Routine ETD (Eustachian tube Expected: 12/03/2021 Contrast (Generic) dysfunction), left (Ap proximate), Expires: 2021 documented as of this encounter Visit Diagnoses Diagnosis ETD (Eustachian tube dysfunction), left documented in this encounter Care Teams Children'S Program Coordinator Relationship Specialty Start Date End Date Violetta Sanford MD PCP - General 04/02/14 [address] [place] [address] documented as of this encounter
--- OUTSIDE RECORDS SUMMARY | 2022-05-24 10:47 | XMS_ITS | Encounter Summary ---
:1955 Author Organization [place] [id number] Care Team Providers Name Role Phone Violetta Sanford MD Primary Care Provider Encounter Details Date Type Department Care Team Description 12/29/2021 Surgery Main Operating Room Iraj Scott MD MICROSCOPE USE ([facility] 3.46[facility] OTOLARYNGOLOG [place] [id number] [phone] Social History Tobacco Use Types Packs/Day Years [...] Sign Reading Time Taken Comments Blood Pressure 146/65 12/29/2021 8:36 AM EDT Pulse 83 12/29/2021 8:36 AM EDT Temperature 36.6 ??C (97.9 ??F) 12/29/2021 8:36 AM EDT Respiratory Rate 16 12/29/2021 8:36 AM EDT Oxygen Saturation 99% 12/29/2021 8:36 AM EDT Inhaled Oxygen Concentration - - Weight 129.3 kg (285 lb) 12/29/2021 6:27 AM EDT Height 193 cm (6' 4) 12/29/2021 6:27 AM EDT Body Mass Index 34.69 12/29/2021 6:27 AM EDT documented in this encounter Discharge Instructions Patient InstructionsIraj Scott MD - 12/29/2021 9:19 AM EDT Myringotomy with aspiration of middle ear fluid AFTER THE PROCEDURE: It is normal to have some mild pain or fullness in the ear after surgery. Tylenol can be beneficial if necessary. There may be clear or blood tinged fluid draining from the ear for a few days after the surgery. If hearing was decreased due to fluid build up, there should be an improvement right after the surgery. Use the prescribed ear drops for the first [address] a towel on the bed and lie down on your stomach with the head on the towel. Apply 4 drops intothe operated ear and press gently on the soft piece of cartilage in front of the ear to pump the drops through the tube. Wait [address] a cotton ball in the ear canal to catch drops that may run out. Turn your head to the opposite side and repeat if tubes were placed on both sides. HOME CARE INSTRUCTIONS Keep the ear dry. Try not to let water get into the ear canal. SEEK MEDICAL CARE IF: Ear drainage that looks thick, smells bad or is bloody. Decreased hearing. Balance problems. Increasing ear pain. Increased headache or neck stiffness or fevers. SEEK IMMEDIATE MEDICAL CARE IF: Redness, tenderness or swelling of the ear canal or ear itself. Contacts: -You can reach the ENT clinic at [phone] for appointment questions. -The ENT triage nurse is available at [phone] -For urgent issues during evenings and weekends the ENT resident distribution dispatcher can be reached through the main hospital paper roll machine operator at [phone] Currently Scheduled Appointments: Future Appointments and Orders Future Appointments and Orders Future Appointments Provider Department Dept Phone 12/30/2021 12:00 PM INFUSION, ROOM Hematology Oncology at [facility] Arrive at: [facility] door at end of hallway [phone] 01/13/2022 10:[address] INFUSION, ROOM Hematology Oncology at [facility] Arrive at: [facility] door at end of hallway [phone] 01/13/2022 11:00 AM Margaret Purvis APRN Hematology/Oncology at [facility] Arrive at: [facility] door at end of hallway [phone] 01/21/2022 11:00 AM Donell Hernandez MD [place] [facility] [place] at: [facility] Laboratory Technician Area 3A [phone] 01/27/2022 4:00 PM Patti Sanchez, AUD; AUDIOLOGY, VERONICA TWO [place]iology at [facility] [place]rive at: [facility] Laboratory Technician Area 4F [phone] 01/27/2022 4:40 PM Iraj Scott MD [place] [facility] [place] at: [facility] Laboratory Technician Area 4F [phone] 02/16/2022 3:00 PM Shira Ramírez APRN [place] [facility] [place] at: [facility] Laboratory Technician Area 4L [phone] 06/21/2022 11:00 AM Shivam Rojas MD [place]rology at [facility] [place]rive at: Paint Laboratory Technician Area 3C [phone] documented in this encounter Medications at Time [...] by 6 kit 3 08/07/2021 Sensor Kit [facility]Non-Drug; Combo Route) route every 14 days. Use to continuously monitor blood glucose. Scan at least 4 times per day. FreeStyle Gilberto 2 Use to continuously 1 each 0 2 [place] Misc monitor blood glucose. Scan at least [...] B-12) 100 mcg Tablet Blood-Glucose Sensor by [facility]Non-Drug; 0 (Dexcom G6 Sensor) Combo Route) route. Device Sensor, state federal relations deputy director andtransmitter metoprolol succinate Take 1 tablet by mouth 90 tablet 1 04/2020 XL (Toprol-XL) 50 mg daily. Tablet Sustained Release 24 hr amLODIPine (Norvasc) Take 0.5 tablets by 90 tablet 3 2019 10 mg Tablet mouth daily. fluticasone INSTILL 2 SPRAYS INTO 0 09/06/2019 propionate (FLONASE) EACH NOSTRIL ONCE A 50 mcg/actuation DAY NEEDED [place], Suspension multivitamin with Take 1 tablet by [...] Devices by 4 each 0 12/02/2015 Supply [facility].(Non-Drug; Combo MiscIndications: S/P Route) route daily. bilateral [...] 10/202105/04/2022 50 mg Tablet 4 times daily. ofloxacin (Floxin) Place 4 drops into the 5 mL 0 12/2901/03/2022 0.3 % Drops left ear 2 times daily for 5 days. CellCept 250 mg TAKE 2 CAPSULES BY 120 capsule 5 09/15/2021 03/23/2022 CapsuleIndications: MOUTH 2 TIMES DAILY Transplanted kidney Prograf 0.5 mg TAKE 1 CAPSULE BY 30 capsule 5 09/15/2021 CapsuleIndications: MOUTH NIGHTLY. Transplanted kidney, Other complication of kidney transplant, Prophylactic immunotherapy Prograf 1 mg TAKE 1 CAPSULE BY 30 capsule 5 09/15/202103/23 CapsuleIndications: MOUTH DAILY Transplanted kidney losartan (Cozaar) 25 TAKE ONE TABLET BY 90 tablet 1 022 01/07/2022 mg Tablet MOUTH EVERY DAY cholecalciferol, Take 1 tablet by mouth 90 tablet 3 018 03/17/2022 Vitamin D3, 2,000 daily. unit TabletIndications: Vitamin D deficiency documented as of this encounter Progress Notes Karen Bauman RN - 12/29/2021 9:56 AM EDT 0836: Arrived from OR in stretcher. Attached to monitors and alarms set appropriately for patient. Oral airway in place upon arrival. Cotton ball in place in left ear. 0838: Oral airway removed. 0850: Dr. Scott at bedside speaking with pt regarding procedure. Discharge instructions reviewed with pt and visitor, verbalizes understanding. PIV removed. Cotton ball replaced in left ear, yellow/creamy discharge noted on cotton ball that was removed. Pt discharged home via wheelchair with visitor. documented in this encounter H&P Notes Iraj Scott MD - 12/29/2021 7:04 AM EDT 24-Hour Pre-Operative H&P Update Patient was seen in the Pre-Operative Area today. I have reviewed, and agree with, the clinical history, physical examination findings, impression, and plan, as detailed in the original H&P Note. The patient was cleared for surgery. Myringotomy with tympanostomy tube, left ear Interval History: The patient's history and physical exam have been reviewed and completed. There has been no interval change from that of the pre-operative history and physical exam done within the last 30 days. Medications: Outpatient Medications Marked as Taking for the 12/29/21 encounter (Hospital Encounter) Medication Sig Dispense Refill ??? ipratropium-albuteroL (Duoneb) 0.5 mg-3 mg(2.5 mg [...] Gilberto 2 Sensor Kit 1 each by [facility].(Non-Drug; Combo Route) route every 14 days. Use to continuously monitor blood glucose. Scan at least 4 times per day. 6 kit 3 ??? FreeStyle Gilberto 2 [place] [facility] Use to continuously monitor blood glucose. Scan [...] 14 Day Sensor Kit 1 each by [facility].(Non-Drug; Combo Route) route every 14 days. Use to continuously monitor blood glucose. Scan at least 5 times per day. DX: E11.65 6 kit 3 ??? darbepoetin cristy in polysorbat 10 mcg/0.4 mL Syringe Inject 300 mg as directed as needed. ??? cyanocobalamin, Vitamin B-12, (Vitamin B-12) 100 mcg Tablet Take 100 mcg by mouth daily. ??? Blood-Glucose Sensor (Dexcom G6 Sensor) Device by [facility].(Non-Drug; Combo Route) route. Sensor, state federal relations deputy director andtransmitter ??? metoprolol succinate XL (Toprol-XL) 50 mg Tablet Sustained Release 24 hr Take 1 tablet by mouth daily. 90 tablet 1 ??? amLODIPine (Norvasc) 10 mg Tablet Take 0.5 tablets by mouth daily. 90 tablet 3 ??? fluticasone propionate (FLONASE) 50 mcg/actuation [place], Suspension INSTILL 2 SPRAYS INTO EACH NOSTRIL [...] gauge x 1/2 Needle 1 Device by [facility].(Non- Drug; Combo Route) route 3 times daily. [...] Reported on 08/06/2016 ??? Miscellaneous Medical Supply [facility] 4 Devices by [facility].(Non-Drug; Combo Route) route daily. Rubber sheath for leg prosthesis (2 pairs) 4 each PRN ??? BD INSULIN PEN NEEDLE UF ORIG 29 gauge x 1/2 Needle 0 ??? aspirin 81 mg EC tablet Take 81 mg by mouth daily. Allergies: Penicillins, Iftikhar inhibitors, Clindamycin hcl, Allergenic extracts, Ibuprofen, and Sulfamethoxazole-trimethoprim Impression: Leroy is a 66 y.o. male with a history of chronic mucoid otitis media and Eustachian tube dysfunction, left ear. Unable to complete myringotomy and tympanostomy tube in the office due to narrowed external auditory canal and patient tolerance. Plan: -ready to proceed with the planned surgical procedure, myringotomy with tympanostomy tube, left ear. Iraj Scott MD Otology and Neurotology Otolaryngology - Head & Neck Surgery Pgr: [phone] documented in this encounter Miscellaneous Notes Op Note - Iraj Soctt MD - 12/29/2021 7:51 AM EDT [facility] [place] Note Patient Name: Leroy Torres : [id number] MR#: [id number] Case Date: 12/29/2021 Surgeon: Surgeon(s) and Role: * Iraj Scott MD - Primary Preoperative diagnosis: chronic otitis media with effusion, left ear Postoperative diagnosis: chronic otitis media with effusion, left ear Procedure(s) (LRB): MICROSCOPE USE (WRVU 3.46) (Left) MYRINGOTOMY ASPIRATION OF MIDDLE EAR (WRVU 1.38) (Left) Anesthesia: General Estimated Blood Loss: * No values recorded between 12/29/2021 7:51 AM and 12/29/2021 8:26 AM * Specimens removed during surgery: None Drains: * No LDAs found * Surgical Closure: Primary Closure - skin incision is completely closed without any wires, reynaldo, drains or other devices Disposition: awakened from anesthesia, extubated and taken to the recovery room in a stable condition, having suffered no apparent untoward event. Condition: doing well without problems (Please see the Surgical Encounter Summary for any Implant and Specimen details pertinent to this patient.) HPI/Surgical Indications: Chronic otitis media with effusion, left ear. Findings: Left ear with posterior inferior bulging tympanic membrane with middle ear effusion. Drum intact. Following posterior inferior myringotomy, scant mucoid effusion encountered followed by clear persistent watery discharge with persistent pulsations. Clear effusion suspect for CSF. Aspirate obtained with tymp trap with specimen sent for beta-2 transferrin. Insertion of tympanostomy tube deferred in context of intraoperative findings. Procedure Description: The patient was taken to the main operating room and laid supine on the operating room table. Properinformed consent was ensured, and the patient was positively identified. Once general anesthesia wasestablished, the patient was positioned supine on the table with the head turned to expose the lef ear. A formal surgical timeout was performed with all in attendance ensuring proper site, side, patient and procedure. All were in agreement. The microscope was brought into the surgical field and used for the remainder of the case for illumination and magnification. The canal was bluntly cleared of normal cerumen. A posterior inferior bulgeof the tympanic membrane was appreciated with associated middle ear effusion. The drum was intact, without evidence of retraction. A radially based left myringotomy was placed in the posterior-inferiorquadrant of the tympanic membrane. A scant mucoid effusion was initially appreciated, followed by persistent pulsating clear watery otorrhea that did not alexandro. Character of this otorrhea suspect for CSF. Middle ear aspirate obtained with tymp trap with specimen sent for beta-2 transferrin. Insertion of tympanostomy tube deferred in context of intraoperative findings suspect for middle ear CSF. Floxin drops were instilled into the ear canal. Cotton was placed at the meatus. The case was consequently terminated. All sponge and instrument counts were correct. There were no noted complications. The patient appeared to tolerate the procedure well. The patient was awakened from general anesthesia without incident returned to the recovery room in stable condition. Surgical Infection Prevention Bundle Used? No Attestation: Case Date: 12/29/2021 I performed this procedure without the involvement of a resident. Iraj Scott MD 01/03/2022 documented in this encounter Plan of Treatment Upcoming Encounters Date Type Specialty Care Team Description 05/26/2022 Office Visit Otolaryngology Ricardo Panda PA [facility] [place], [place] [address] (Wo rk) 06/02/2022 Infusion Hematology and Oncology 06/16/2022 Infusion Hematology and Oncology 06/21/2022 Office Visit Neurology Tyler Rojas MD [facility] Neurology [place], [place] [phone] (Wo rk) 06/30/2022 Infusion Hematology and Oncology 07/14/2022 Infusion Hematology and Oncology 07/28/2022 Infusion Hematology and Oncology 08/11/2022 Infusion Hematology and Oncology 11/04/2022 Office Visit Rheumatology Dante Freedman PA [facility] RHEUMATOLOGY [place], [place] [address] (Wo rk) documented as of this encounter Procedures Procedure Name Priority Date/Time Associated Diagnosis Comme nts POCT GLUCOSE Routine 12/29/2021 8:43 Results for this AM EDT procedure are i n the results section. HC PCH IMMUNOFIXATION Routine 12/29/2021 8:10 Res ults for this B-2 TRANSFERRIN AM EDT procedure ar e in the results section. MYRINGOTOMY ASPIRATION 12/29/2021 7:32 Chronic mucoid otitis OF MIDDLE EAR (WRVU AM EDT media of lef t ear 1.38) Mixed conductive and sensorineural hearing loss of left ear with restricted hearing of right ear ETD (Eustachian tube dysfunction), left MICROSCOPE USE (WRVU 12/29/2021 7:32 Chronic mucoid ot itis 3.46) AM EDT media of left ea r Mixed conductive and sensorineural hearing loss of left ear with restricted hearing of right ear ETD (Eustachian tube dysfunction), left POCT GLUCOSE Routine 12/29/2021 6:35 Results for this AM EDT procedure are i n the results section. MICROSCOPE USE Routine 12/29/2021 6:02 Chronic mucoid otitis AM EDT media of left ea r Mixed conductive and sensorineural hearing loss of left ear with restricted hearing of right ear ETD (Eustachian tube dysfunction), left documented in this encounter Results POCT Glucose (12/29/2021 8:43 AM EDT) athologist Signature POC Glucose 160 65 - 199 [facility] mg/dL [facility] Comment: Supplemental ranges: <140 mg/dL before meals <180 mg/dL all other times of the day Specimen Anatomical Collection Method Collection Time Receive d Time (Source) Location / / Volume Laterality Blood 12/29/2021 8:43 AM 8:43 EDT AM EDT Iraj Scott MD POINT OF CARE TEST ORDERABLE S Performing Organization Address City/State/[place] [address] Beta 2 Transferrin Body Fluid Other (12/29/2021 8:10 AM EDT) Analysis Performed At Patho logist Time Signature Beta-[address] [facility] Comment: REFERENCE VALUE------ Negative, no beta-2 transferrin (spinal fluid) detected. ADDITIONAL INFORMATIO N This test was developed and its performa nce characteristics determined by [facility] in a manner co nsistent with CLIA requirements. This test has not been carlos ared or approved by the U.S. Food and Drug Administration. Test Performed by: [facility] [address] [place] [address] 62 Veterinary Microbiologist: Van White M.D. Ph. D.; CLIA# [id number] Specimen Anatomical Collection Method Collection Time Receive d Time (Source) Location / / Volume Laterality Body Fld 12/29/2021 8:10 AM 2 5:20 EDT PM EDT Resulting Agency Comment Spec In Lab Iraj Scott MD BODY FLUIDS AND STOOLS ORDER STEPHANIE Performing Organization Address City/State/[place] [address] POCT Glucose (12/29/2021 6:35 AM EDT) P athologist Signature POC Glucose 185 65 - 199 [facility] mg/dL [facility] Comment: Supplemental ranges: <140 mg/dL before meals <180 mg/dL all other times of the day Specimen Anatomical Collection Method Collection Time Receive d Time (Source) Location / / Volume Laterality Blood 12/29/2021 6:35 AM 2 6:35 EDT AM EDT Iraj Scott MD POINT OF CARE TEST ORDERABLE S Performing Organization Address City/[facility]/[place] [address] documented in this encounter Visit Diagnoses Diagnosis Chronic mucoid otitis media of left ear Simple or unspecified chronic mucoid beth tis media Mixed conductive and sensorineural heari ng loss of left ear with restricted hearing of right ear ETD (Eustachian tube dysfunction), left Chronic mucoid otitis media of left ear Simple or unspecified chronic mucoid beth tis media Mixed conductive and sensorineural heari ng loss of left ear with restricted hearing of right ear ETD (Eustachian tube dysfunction), left documented in this encounter Administered Medications Inactive Administered Medications - up to 3 most recent administrations Medication Order MAR Action Action Date Dose Rate Site lactated ringers infusion Restarted 12/29/2021 7:30 AM EDT 1,000 mL, at 100 mL/hr, Intravenous, CONTINUOUS, Starting on Tue12/29/21 at 0715, Until Tue12/29/21 at 0952, Day of Surgery (Day of Procedure) New Bag 12/29/2021 7:03 AM EDT 1,000 mLs 100 mL/hr ofloxacin (Ocuflox) 0.3% Given 12/29/2021 8:33 AM 4 drops 19- Surgical Site ophthalmic solution (FOR OTIC EDT USE) ONCE PRN, Starting on Tue12/29/21 at 0833, Until Tue12/29/21 at 1157, Intra-Operative (Intra-Procedure), Routine documented in this encounter Active and Recently Administered Medications Times are shown in EDT. Continuous Medication Order 12/27/2021 12/28/2021 12/29/2021 lactated ringers infusion (CANCELED) 0703 (New Bag - Provider: Karen Bauman RN)0729 (Paused - Provider: Milton Son - Comment: Switch to gravity)0730 (Restarted - Provider: Milton Son)0814 (Anesthesia Volume Adjustment - Provider: Milton Son) 1,000 mL, at 100 mL/hr, Intravenous, CON TINUOUS, Starting on Tue12/29/21 at 0715, Until Tue12/29/21 at 0952, Day of Surgery (Day of Procedure) 0835 (Anesthesia Volume Adjustment - Provider: Milton Son) PRN Medication Order 12/27/2021 12/28/2021 12/29/2021 ofloxacin (Ocuflox) 0.3% ophthalmic solution (FOR OTIC USE) (CAN CELED) 0833 (Given - Provider: Iraj Scott MD) ONCE PRN, Starting on Tue12/29/21 at 0833 , Until Tue12/29/21 at 1157, Intra- Operative (Intra-Procedure), Routine documented in this encounter Care Teams Horse Rider Relationship Specialty Start Date End Date Violetta Sanford MD PCP - General 04/02/14 [address] [place] [address] documented as of this encounter
--- OUTSIDE RECORDS SUMMARY | 2022-05-24 10:47 | XMS_ITS | Encounter Summary ---
:1955 Author Organization [facility] [place] [address] Care Team Providers Name Role Phone Violetta Sanford MD Primary Care Provider Encounter Details Date Type Department Care Team Description 11/11/2021 Office Visit Hematology/Oncology Diomedes Baez MD [facility] DR HEMATOLOGY/[place] [address] Anemia of chronic at [facility] Margaret Purvis APRN [facility] DR HEMATOLOGY/[place] [address] renal failure, stage [address] 4 (severe) [place] [address] Social History Tobacco Use Types Packs/Day [...] Sign Reading Time Taken Comments Blood Pressure 161/61 11/11/2021 12:09 PM EDT Pulse 77 11/11/2021 12:09 PM EDT Temperature 36.6 ??C (97.9 ??F) 11/11/2021 12:09 PM EDT Respiratory Rate 16 11/11/2021 12:09 PM EDT Oxygen Saturation 98% 11/11/2021 12:09 PM EDT Inhaled Oxygen Concentration - - Weight 126.6 kg (279 lb) 11/11/2021 12:09 PM EDT Height 193 cm (6' 3.98) 11/11/2021 12:09 PM EDT Body Mass Index 33.98 11/11/2021 12:09 PM EDT documented in this encounter Progress Notes Nicky Baez MD - 11/11/2021 12:00 PM EDT Subjective: Patient ID: Leroy Torres is a 66 y.o. 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 Followed by Dr Garnett at [facility]. Seen for epo supplementation. Patient Active Problem List Diagnosis ??? Other complication of kidney transplant ??? [...] ??? Prophylactic immunotherapy ??? Persistent proteinuria ??? 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 Aftercare [...] diabetes mellitus with renal manifestations JESSICA Alexis is doing well. He continues to work on loosing weight and have better management of his DM. Hegained 6 # since his last appt. He has had no problems with this Aranesp injections. He reports thathe feels about the same - but he is doing more chores and activities around the house. No headaches. He had a bone marrow biopsy done about 3 weeks ago and he returns today to review the results. I also did a full anemia panel while he was at [facility]. Results are listed below. Aranesp 300 mcg every 2 weeks has been on hold for BMBx. No major health changes - had a tube put in his ear. Saw rheumatology for his arthritis and hand pain. Sees neurology in Review of Systems Constitutional: Negative. HENT: Negative. Eyes: Negative. Respiratory: Negative. Negative for cough and shortness of breath. Cardiovascular: Negative. Negative for chest pain, palpitations and leg swelling. Gastrointestinal: Negative. Negative for constipation, diarrhea, nausea and vomiting. Genitourinary: Negative. Musculoskeletal: Negative. Skin: Negative. Neurological: Negative. Negative for weakness and numbness. Psychiatric/Behavioral: Negative. Objective: PHYSICAL EXAM BP 161/61 (Patient Position: Sitting) Pulse 77 Temp 36.6 ??C (97.9 ??F) (Temporal) Resp 16 Ht 193 cm (6' 3.98) Wt 126.6 kg (279 lb) SpO2 98% BMI 33.98 kg/m?? Body surface area is 2.61 meters squared. GENERAL: Leroy Torres appears well and is in no acute distress. ENT: Oral pharynx clear. EYES: [place] NECK: Supple without adenopathy. AXILLARY: no adenopathy OTHER LYMPH: no adenopathy CARDIAC: Regular rate and rhythm without S3,S4 or murmurs. LUNGS: Clear to auscultation./percussion ABDOMEN: Soft and non-tender without hepatosplenomegaly or masses. EXTREMITIES: bilat amputation SKIN: No bruises or petechiae. NEUROLOGICAL: Alert and oriented to person, place and time. MUSCULOSKELETAL: No spinal or chest wall tenderness. LABS: No results found for this or any previous visit (from the past 72 hour(s)). Latest Reference Range & Units 10/05/21 08:39 10/22/21 11:44 WBC 4.0 - 9.5 x10(3)/mcL 6.5 6.0 RBC 4.58 - 5.54 x10(6)/mcL 2.75 (L) 2.76 (L) Hemoglobin 13.7 - 16.5 g/dL 8.2 (L) 8.2 (L) Hematocrit 40.5 - 48.5 % 26.7 (L) 27.1 (L) MCV 82.9 - 93.1 fL 97.1 (H) 98.2 (H) MCH 27.5 - 32.1 pg 29.8 29.7 MCHC 32.0 - 35.7 g/dL 30.7 (L) 30.3 (L) RDWSD 36.0 - 45.0 fL 52.1 (H) 51.1 (H) RDWCV 11.4 - 13.8 % 14.7 (H) 14.3 (H) Platelets 145 - 357 x10(3)/mcL 178 169 MPV 7.6 - 12.9 fL 8[address] % 0.7 - 2.6 % 2.[address] Abs 0.030 - 0.120 x10(6)/mcL 0.070 Immature Retic% 0.0 - 15.6 % 17.2 (H) Reticulated Hgb 31.3 - 40.2 pg 24.5 (L) NRBC % Auto % 0.0 0.0 NRBC Abs Auto 0.000 - 0.000 x10(3)/mcL 0.000 0.000 Neutr Abs (ANC) 1.70 - 6.10 x10(3)/mcL 3.72 3.57 Neutrophils % % 57.1 59.5 Immature Gran [...] Abs 0.0 - 0.1 x10(3)/mcL 0.0 0.0 PT 9.4 - 12.5 sec 12.7 (H) INR 1.1 [3] PTT 25 - 37 sec 30 [4] Sodium 135 - 145 mmol/L 138 135 Potassium 3.5 - 5.0 mmol/L 5.2 (H) [5] 5.7 (H) [6] Chloride 98 - 107 mmol/L 111 (H) 110 (H) CO2 22 - 31 mmol/L 19 (L) 17 (L) Anion Gap 5 - 15 mmol/L 8 8 BUN 10 - 20 mg/dL 44 (H) 47 (H) Creatinine 0.80 - 1.50 mg/dL 3.50 (H) 3.78 (H) Estimated GFR >=60 mL/min/1.73 m?? 17 (L) [7] 15 (L) [8] Calcium 8.5 - 10.5 mg/dL 9.0 9.0 Magnesium 0.69 - 1.07 mmol/L 0.78 Phosphorus 2.5 - 4.5 mg/dL 2.9 Uric Acid 3.5 - 8.5 mg/dL 7.0 Glucose Lvl 65 - 199 mg/dL 118 [9] 118 [10] Hemoglobin A1C 4.3 - 5.6 % 6.4 (H) [11] Est Avg Gluc mg/dL 138 [12] Total Protein 6.1 - 8.0 g/dL 7.1 7.3 Albumin 3.2 - 5.2 g/dL 3.5 3.6 Total Bilirubin 0.2 - 1.3 mg/dL 0.3 0.3 Alk Phos 40 - 130 unit/L 108 111 AST 0 - 39 unit/L 10 13 ALT 0 - 55 unit/L 8 12 LDH 110 - 220 unit/L 134 Total Prot Elec 6.1 - 8.0 g/dL 6.8 Albumin Elect 3.60 - 6.00 g/dL 3.76 Alpha1-Globulin 0.10 - 0.30 g/dL 0.20 Alpha2-Globulin 0.40 - 0.90 g/dL 0.72 Beta Globulin 0.50 - 1.00 g/dL 0.61 Gamma Globulin 0.50 - 1.30 g/dL 1.60 (H) M1 Band None Detected None Detected Chol, Total mg/dL 73 [13] Lipid Interpretation See Note [14] Folate Lvl 4.8 - 24.2 ng/mL >20.0 Iron 45 - 160 mcg/dL 37 (L) TIBC 250 - 450 mcg/dL 190 (L) Iron Saturation 20 - 50 % 19 (L) Ferritin 30 - 400 ng/mL 71 [15] Vitamin B-12 232 - 1,245 pg/mL 1,177 Copper 0.75 - 1.45 mcg/mL 1.24 [16] Tacrolimus Lvl ng/mL 3.5 [17] TSH 0.27 - 4.20 mcIU/mL 3.91 [18] PATHOLOGY 10/22/21 BONE MARROW (PERIPHERAL SMEAR, ASPIRATE [...] Torres is a very pleasant 66 y.o. . male referred by Dr Garnett for consideration of erythropoietin supplementation for anemia due to end-stage renal disease, status post transplant. ?? His hemoglobin had been in the 8-9 range. He started on Aranesp 300 mg Q3 weeks approx 3 months ago and interval was later decreased to every 2 weeks May 2021.. His hgb remains in the 8-9 range despite Aranesp 300 mg every 2 weeks. He is tolerating it well and has seen an improvement in his activity. ? Reuben had a bone marrow biopsy [...] to Aranesp alone, a trial of Venofer would be reasonable to see if wecan mount some type type of Red cell response. My guess is that the additional iron will not benefithim, but at this point it probably will not harm him either. COVID - Vaccinated X 4 and plans for Evusheld - will see Dr Garnett on 10/05 to discuss Evusheld. Ananya discussed w/ him today but did not enter orders. Plan: ?? Continue Aranesp 300 mcg every 2 weeks ?? Trial of Venofer 200 mg every other week x3 doses ?? Return to clinic in late December with CBC, CMP, iron, TIBC, ferritin ?? He will call sooner if any concerns or changes in status. ?? documented in this encounter Plan of Treatment Upcoming Encounters Date Type Specialty Care Team Description 05/26/2022 Office Visit Otolaryngology Ricardo Panda PA [facility] [address] [place] [address] (Wo gregg) 06/02/2022 Infusion Hematology and Oncology 06/16/2022 Infusion Hematology and Oncology 06/21/2022 Office Visit Neurology Tyler Rojas MD [facility] Dr [address]i [place] [address] 6-2022 (Wo rk) 06/30/2022 Infusion Hematology and Oncology 07/14/2022 Infusion Hematology and Oncology 07/28/2022 Infusion Hematology and Oncology 08/11/2022 Infusion Hematology and Oncology 11/04/2022 Office Visit Rheumatology Dante Freedman PA [facility] RHEUMATOLOGY [place], [place] [address] (Wo rk) documented as of this encounter Visit Diagnoses Diagnosis Anemia of chronic renal failure, stage 4 (severe) documented in this encounter Care Teams Mutuel Machine Operator Relationship Specialty Start Date End Date Violetta Sanford MD PCP - General 04/02/14 [address] [place] [address] documented as of this encounter
--- OUTSIDE RECORDS SUMMARY | 2022-05-24 10:47 | XMS_ITS | Encounter Summary ---
:1955 Author Organization [facility] [address] Care Team Providers Name Role Phone Violetta Sanford MD Primary Care Provider Encounter Details Date Type Department Care Team Description 12/02/2021 [facility] [place] [address] HEMATOLOGY/ONCOLOGY [phone] DEPT. [place], [place] [address] (Wo rk) Social History Tobacco [...] Panda PA [facility] [address] [place], [place] [address] (Wo rk) 06/02/2022 Infusion Hematology and Oncology 06/16/2022 Infusion Hematology and Oncology 06/21/2022 Office Visit Neurology Tyler Rojas MD [facility] er Neurology [place], [place] [phone] (Wo rk) 06/30/2022 Infusion Hematology and Oncology 07/14/2022 Infusion Hematology and Oncology 07/28/2022 Infusion Hematology and Oncology 08/11/2022 Infusion Hematology and Oncology 11/04/2022 Office Visit Rheumatology Dante Freedman PA [facility] RHEUMATOLOGY [place], [place] [address] (Wo rk) documented as of this encounter Visit Diagnoses Not on filedocumented in this encounter Care Teams Mobile Application Engineer Relationship Specialty Start Date End Date Violetta Sanford MD PCP - General 04/02/14 [address] [place] [address] documented as of this encounter
--- OUTSIDE RECORDS SUMMARY | 2022-05-24 10:47 | XMS_ITS | Encounter Summary ---
:1955 Author Organization [place] [address] Care Team Providers Name Role Phone Violetta Sanford MD Primary Care Provider Encounter Details Date Type Department Care Team Description 12/09/2021 Notes Only Otolaryngology at [facility] [place] [address] Social History Tobacco Use Types Packs/Day [...] documented as of this encounter Progress Notes Eulalia Urban RN - 12/09/2021 2:27 PM EDT Patient has requested to have CT Temporal Bone wo Contrast completed at [facility]. NO PA needed for Medicare. [place] [facility] [place] follows all medicare guidelines; NO pre certification is needed. Information faxed to [facility] radiology as per patient request. documented in this encounter Plan of Treatment Upcoming Encounters Date Type Specialty Care Team Description 05/26/2022 Office Visit Otolaryngology Ricardo Panda PA [facility] [address] [place], [place] [address] (Wo rk) 06/02/2022 Infusion Hematology and Oncology 06/16/2022 Infusion Hematology and Oncology 06/21/2022 Office Visit Neurology Tyler Rojas MD [facility] Neurology [place], [place] [phone] (Wo rk) 06/30/2022 Infusion Hematology and Oncology 07/14/2022 Infusion Hematology and Oncology 07/28/2022 Infusion Hematology and Oncology 08/11/2022 Infusion Hematology and Oncology 11/04/2022 Office Visit Rheumatology Dante Freedman PA [facility] RHEUMATOLOGY [place], [place] [address] (Wo rk) documented as of this encounter Visit Diagnoses Not on filedocumented in this encounter Care Teams Freelance Art Director Relationship Specialty Start Date End Date Violetta Sanford MD PCP - General 04/02/14 [address] [place] [address] documented as of this encounter
--- OUTSIDE RECORDS SUMMARY | 2022-05-24 10:47 | XMS_ITS | Encounter Summary ---
:1955 Author Organization [facility] [place] [address] Care Team Providers Name Role Phone Violetta Sanford MD Primary Care Provider Reason for Visit Reason Onset Date Comments Other 11/25/2021 Needs cbc drawn Encounter Details Date Type Department Care Team Description 11/25/2021 Telephone Hematology/Oncology at Brittany Vera RN Other (Needs cbc drawn) [address] [address] Social History Tobacco Use Types [...] Telephone Encounter - Brittany Vera RN - 11/25/2021 1:53 PM EDT Called and left message on pt's phone to remind him he needs blood work again today per Dr. Patelked him to return my call. documented in this encounter Plan of Treatment Upcoming Encounters Date Type Specialty Care Team Description 05/26/2022 Office Visit Otolaryngology Ricardo Panda PA [facility] Dr [place], [place] [address] (Wo rk) 06/02/2022 Infusion Hematology and Oncology 06/16/2022 Infusion Hematology and Oncology 06/21/2022 Office Visit Neurology Tyler Rojas MD [facility] Neurology [place], [place] [phone] (Wo rk) 06/30/2022 Infusion Hematology and Oncology 07/14/2022 Infusion Hematology and Oncology 07/28/2022 Infusion Hematology and Oncology 08/11/2022 Infusion Hematology and Oncology 11/04/2022 Office Visit Rheumatology Dante Freedman PA [facility] RHEUMATOLOGY [place], [place] [address] (Wo rk) documented as of this encounter Visit Diagnoses Not on filedocumented in this encounter Care Teams Firefighter Type One Relationship Specialty Start Date End Date Violetta Sanford MD PCP - General 04/02/14 [facility] [address] [place] [address] documented as of this encounter
--- OUTSIDE RECORDS SUMMARY | 2022-05-24 10:47 | XMS_ITS | Encounter Summary ---
:1955 Author Organization [facility] [place] [address] Care Team Providers Name Role Phone Violetta Sanford MD Primary Care Provider Reason for Visit Reason Comments Follow-up Encounter Details Date Type Department Care Team Description 01/13/2022 Office Visit Hematology/Oncology Margaret Purvis Ane mia of chronic renal failure, stage 4 (severe); at [facility] CHANGE CONTROL COORDINATOR H/O kidney transplant; [address] [place] [address] CKD (chronic kidney disease) stage 4, GFR 15-29 ml/[place] [address] HEMATOLOGY/ONCOLOG [phone] Y DEPT. [place], [place] [address] Social History Tobacco Use Types [...] Sign Reading Time Taken Comments Blood Pressure 155/53 01/13/2022 10:54 AM EDT Pulse 66 01/13/2022 10:54 AM EDT Temperature 36.7 ??C (98.1 ??F) 01/13/2022 10:54 AM EDT Respiratory Rate 18 01/13/2022 10:54 AM EDT Oxygen Saturation 100% 01/13/2022 10:54 AM EDT Inhaled Oxygen Concentration - - Weight 128.8 kg (284 lb) 01/13/2022 10:54 AM EDT with l egs Height 193 cm (6' 3.98) 01/13/2022 10:54 AM EDT Body Mass Index 34.58 01/13/2022 10:54 AM EDT documented in this encounter Progress Notes Margaret Purvis, CHANGE CONTROL COORDINATOR - 01/13/2022 11:00 AM EDT Subjective: Patient ID: Leroy Torres is a 66 y.o. male here for follow-up of chronic anemia due to renal insufficiency. Followed by Dr Garnett at [facility]. Seen for epo supplementation. Patient Active Problem [...] ??? Prophylactic immunotherapy ??? Persistent proteinuria ??? 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 Aftercare [...] also interfered with blood sugar control. He continues to be quite fatigued likely contributed by his recenthospitalization [ 01/06-01/07/22] for ear infection after presenting to the ED with a 3-day history ofworsening severe left-sided ear pain along with purulent drainage and fevers. ??He has been following up with ENT as an outpatient for hearing loss and was found to have a chronic middle ear effusion with an unsuccessful tympanostomy tube placement. He describes pain on the left side with the sabianist all the way to the jaw and throat. He was having swallowing difficulty. He was admitted for IV antibiotics and pain control. Swab culture of left ear grew gram positive cocci and gram negative rods. He was transitioned to PO cefpodoxime for 10 days and Ciprodex ear drops for 10 days with follow-up in ENT clinic tomorrow. Review of Systems Constitutional: Fatigued! HENT: As [...] numbness. Psychiatric/Behavioral: Negative. Objective: PHYSICAL EXAM BP 155/53 (Patient Position: Sitting) Pulse 66 Temp 36.7 ??C (98.1 ??F) (Temporal) Resp 18 Ht 193 cm (6' 3.98) Wt 128.8 kg (284 lb) Comment: with legs SpO2 100% BMI 34.58 kg/m?? There is no height or weight on file to calculate BSA. GENERAL: Leroy Torres is a chronically-ill appearing 66 year old male in [facility]. He is accompanied to clinic by his . Physical exam not performed today LABS: Recent Results (from the past 72 hour(s)) CBC (with Diff) Result Value Ref Range WBC 6.82 Hemoglobin 8.8 Hematocrit 29.2 Platelets 198 Neutr Abs (ANC) 3.73 Creatinine 3.2 BUN 43 Uric Acid 8 PATHOLOGY 10/22/21 BONE MARROW (PERIPHERAL SMEAR, ASPIRATE [...] was associated with intolerable phantom limb pain. COVID - Vaccinated X 4 and plans for MaeveJeffery Alexis discussed with Dr Garnett who did not feel itwas necessary given her had detectable COVID antibodies. Plan: ?? Continue Aranesp 300mcg every 2 weeks ?? Return to clinic in 3 months with CBC, CMP ?? He will call sooner if any concerns or changes in status. ?? Margaret Purvis, MSN, CHANGE CONTROL COORDINATOR Nurse Practitioner Section of Hematology documented in this encounter Plan of Treatment Upcoming Encounters Date Type Specialty Care Team Description 05/26/2022 Office Visit Otolaryngology Ricardo Panda PA [facility] Dr [address] [place] [address] (Oscar escobedo) 06/02/2022 Infusion Hematology and Oncology 06/16/2022 Infusion Hematology and Oncology 06/21/2022 Office Visit Neurology Tyler Rojas MD [facility] Neurology [place], [place] [phone] (Wo gregg) 06/30/2022 Infusion Hematology and Oncology 07/14/2022 Infusion Hematology and Oncology 07/28/2022 Infusion Hematology and Oncology 08/11/2022 Infusion Hematology and Oncology 11/04/2022 Office Visit Rheumatology Dante Freedman PA [facility] RHEUMATOLOGY [place], [place] [address] (Wo rk) documented as of this encounter Procedures Procedure Name Priority Date/Time Associated Diagnosis Comme nts CBC (WITH DIFF) Routine 01/12/2022 Results for this procedure are in the resu lts section. documented in this encounter Results CBC (with Diff) (01/12/2022) P athologist Signature WBC 6.82 Hemoglobin 8.8 Hematocrit 29.2 Platelets 198 Neutr Abs (ANC) 3.73 Creatinine 3.2 BUN 43 Uric Acid 8 Specimen (Source) Anatomical Location Collection Method / Collectio n Time Received Time / Laterality Volume Blood 01/12/2022 Historical Provider HEMATOLOGY ORDERABLES documented in this encounter Visit Diagnoses Diagnosis Anemia of chronic renal failure, stage 4 (severe) H/O kidney transplant Kidney replaced by transplant CKD (chronic kidney disease) stage 4, GF R 15-29 ml/min Chronic kidney disease, Stage IV (severe ) documented in this encounter Care Teams Para Educator Relationship Specialty Start Date End Date Violetta Sanford MD PCP - General 04/02/14 [address] [place] [address] documented as of this encounter
--- OUTSIDE RECORDS SUMMARY | 2022-05-24 10:47 | XMS_ITS | Encounter Summary ---
:1955 Author Organization [facility] [place] [address] Care Team Providers Name Role Phone Violetta Sanford MD Primary Care Provider Encounter Details Date Type Department Care Team Description 11/30/2021 Telephone Otolaryngology at [facility] [place] [address] Social History Tobacco Use Types Packs/Day Years [...] Notes Telephone Encounter - Eulalia Rivera - 11/30/2021 12:43 PM EDT Angelica, Patient is scheduled to have surgery on 12/29/2021 and the packet has been mailed to the verified address on file. Follow up appointment is as follows: Operative time: 15 min Follow up: 1 week with nurse, then 4-6 weeks Thank you!! documented in this encounter Plan of Treatment Upcoming Encounters Date Type Specialty Care Team Description 05/26/2022 Office Visit Otolaryngology Ricardo Panda PA [facility] [place] [address] (Wo rk) 06/02/2022 Infusion Hematology and Oncology 06/16/2022 Infusion Hematology and Oncology 06/21/2022 Office Visit Neurology Tyler Rojas MD [facility] Neurology [place], [place] [phone] (Wo rk) 06/30/2022 Infusion Hematology and Oncology 07/14/2022 Infusion Hematology and Oncology 07/28/2022 Infusion Hematology and Oncology 08/11/2022 Infusion Hematology and Oncology 11/04/2022 Office Visit Rheumatology Dante Freedman PA [facility] RHEUMATOLOGY [place], [place] [address] (Wo rk) documented as of this encounter Visit Diagnoses Not on filedocumented in this encounter Care Teams Carbon Capture Power Plant Operator Relationship Specialty Start Date End Date Violetta Sanford MD PCP - General 04/02/14 [facility] [address] [place] [address] documented as of this encounter
--- OUTSIDE RECORDS SUMMARY | 2022-05-24 10:47 | XMS_ITS | Encounter Summary ---
:1955 Author Organization [facility] [place] [address] Care Team Providers Name Role Phone Violetta Sanford MD Primary Care Provider Reason for Referral Consultation (Routine) - Authorized Specialty Diagnoses / Procedures Referred By Contact Refer red To Contact Gastroenterology Diagnoses Dysphagia, unspecified type dysphagia Violetta Sanford MD [facility] [address] [place], [place] [address] [place] [phone] Phone: Fax: Referral ID Status Reason Start Expiration Visits Visits Date Date Requested Authorized [id number] Authorized Consult, 12/04/2021 12/04/2022 6 6 Test & Treat PCP Updated and/or Approved Encounter Details Date Type Department Care Team Description 12/04/2021 Transcribe Orders eDH Incoming Violetta Sanford, Antonino Mendez MD unspecified type [phone] [address] [place] [id number] Social History Tobacco Use Types Packs/Day Years [...] 05/26/2022 Office Visit Otolaryngology Ricardo Panda PA [facility] er [place], [place] [address] (Wo rk) 06/02/2022 Infusion Hematology and Oncology 06/16/2022 Infusion Hematology and Oncology 06/21/2022 Office Visit Neurology Tyler Rojas MD [facility] Neurology [place], [place] [phone] (Wo rk) 06/30/2022 Infusion Hematology and Oncology 07/14/2022 Infusion Hematology and Oncology 07/28/2022 Infusion Hematology and Oncology 08/11/2022 Infusion Hematology and Oncology 11/04/2022 Office Visit Rheumatology Dante Freedman PA [facility] RHEUMATOLOGY [place], [place] [address] (Wo rk) Scheduled Referrals Name Type Priority Associated Order Schedule Diagnoses Referral to Outpatient Routine Dysphagia, Ordered: Gastroenterology Referral unspecified type 022 documented as of this encounter Visit Diagnoses Diagnosis Dysphagia, unspecified type documented in this encounter Care Teams Production Leader Relationship Specialty Start Date End Date Violetta Sanford MD PCP - General 04/02/14 [address] [place] [address] documented as of this encounter
--- OUTSIDE RECORDS SUMMARY | 2022-05-24 10:47 | XMS_ITS | Encounter Summary ---
:1955 Author Organization [facility] [place] [address] Care Team Providers Name Role Phone Violetta Sanford MD Primary Care Provider Encounter Details Date Type Department Care Team Description 12/23/2021 Telephone Otolaryngology at [facility] [place] [address] Social History Tobacco Use Types Packs/Day [...] Telephone Encounter - Eulalia Urban RN - 12/23/2021 5:23 PM EDT You will need to be off all anticoagulants (blood thinners) for 7 days prior to your ENT surgery, including baby aspirin. If you need to, please reach out to prescriber for direction. Call back to ENT if this is not approved for further discussion with surgeon. documented in this encounter Plan of Treatment Upcoming Encounters Date Type Specialty Care Team Description 05/26/2022 Office Visit Otolaryngology Ricardo Panda PA [facility] [place] [address] (Wo rk) 06/02/2022 Infusion Hematology and Oncology 06/16/2022 Infusion Hematology and Oncology 06/21/2022 Office Visit Neurology Tyler Rojas MD [facility] Neurology [place], [place] [phone] (Wo rk) 06/30/2022 Infusion Hematology and Oncology 07/14/2022 Infusion Hematology and Oncology 07/28/2022 Infusion Hematology and Oncology 08/11/2022 Infusion Hematology and Oncology 11/04/2022 Office Visit Rheumatology Dante Freedman PA [facility] RHEUMATOLOGY [place], [place] [address] (Wo rk) documented as of this encounter Visit Diagnoses Not on filedocumented in this encounter Care Teams Library Cataloging Technician Relationship Specialty Start Date End Date Violetta Sanford MD PCP - General 04/02/14 [address] [place] [address] documented as of this encounter
--- OUTSIDE RECORDS SUMMARY | 2022-05-24 10:47 | XMS_ITS | Encounter Summary ---
:1955 Author Organization [facility] [place] [address] Care Team Providers Name Role Phone Violetta Sanford MD Primary Care Provider Encounter Details Date Type Department Care Team Description 01/12/2022 Ancillary Procedure Radiology Library at Violetta Sanford MD [address] [place] [id number] [phone] (Wo rk) Social History Tobacco Use Types [...] 05/26/2022 Office Visit Otolaryngology Ricardo Panda PA [facility] [address] [place] [address] (Wo rk) 06/02/2022 Infusion Hematology and Oncology 06/16/2022 Infusion Hematology and Oncology 06/21/2022 Office Visit Neurology Tyler Rojas MD [facility] Neurology [place], [place] [phone] (Wo rk) 06/30/2022 Infusion Hematology and Oncology 07/14/2022 Infusion Hematology and Oncology 07/28/2022 Infusion Hematology and Oncology 08/11/2022 Infusion Hematology and Oncology 11/04/2022 Office Visit Rheumatology Dante Freedman PA [facility] RHEUMATOLOGY [place], [place] [address] (Wo rk) documented as of this encounter Procedures Procedure Name Priority Date/Time Associated Diagnosis Comme nts FILM LIBRARY Routine 01/12/2022 12:00 AM Results for this STORAGE ONLY DX GI EDT procedure are in STUDY the results section. documented in this encounter Results Film Library- Storage Only DX GI Study (01/12/2022 12:00 AM EDT) Specimen (Source) Anatomical Location Collection Method / Collectio n Time Received Time / Laterality Volume Narrative [facility] - 01/14/2022 12:47 PM EDT This exam is auto-finalizing. It's purpo se is for storage only. Violetta Sanford MD IMG FILM LIBRARY ORDERABLES Performing Organization Address City/State/ZIP Code Phon e Number [place], [place] documented in this encounter Visit Diagnoses Not on filedocumented in this encounter Care Teams Education And Training Manager Relationship Specialty Start Date End Date Violetta Sanford MD PCP - General 04/02/14 [address] [place] [address] documented as of this encounter
--- OUTSIDE RECORDS SUMMARY | 2022-05-24 10:47 | XMS_ITS | Encounter Summary ---
:1955 [place] [address] Care Team Providers Name Role Phone Violetta Sanford MD Primary Care Provider Encounter Details Date Type Department Care Team Description 12/29/2021 Anesthesia Event Main Operating Room Sivakumar Wolfe MD [facility] [place] [address] [facility] ([facility] [place] [address] Anesthesia Record Procedure Summary Procedure Name Responsible Anesthesia Start Anesthesia Stop Anesthesiologist Time Time MICROSCOPE USE (Keiry Adhikari MD 12/29/21 0729 12/29/21 08 37 3.46) (Left Ear) Events Date Time Event Comment 12/29/2021 0722 0729 AN Verify 0729 Start 0732 An Start Data 0740 An Induction 0741 An Intubation 0749 Anesthesia Ready 0819 Extubation/LMA Out 0834 an stop data 0837 Recovery or ICU Handoff Patient care was transferred to the destination unit staff after review of the patient's medica l history, current anesthetic/surgi gabriel status and plan, according to the Provider Handoff Checklist. 0837 Stop Name Total Propofol 200 mg fentaNYL 75 mcg IV Lidocaine 100 mg Ondansetron 4 mg ePHEDrine 10 mg lactated ringers infusion 500 mL Agents Name O2 Air N2O Sevoflurane (et) Blood No blood administrations on file. Lines, Drains, and Airways Type Details Placement Removal (RETIRED) Hemodialysis arteriovenous fistula; 06/16/13 1622 by Access left, forearm Purnima Larose RN Incision 12/29/21; 0806; Left; 12/29/21 0806 by ear (myringotomy) Niyah Blair RN Incision 06/21/11; 1329; leg; 06/21/11 1329 by 02/09/22 0 646 by 02/09/22; 0646 Tabitha Fournier Philibert, E r[place] RN H, RN (RETIRED) Wound 06/16/13 1822 by 02/09/22 0646 Purnima Dumont RN Philibert, E rica H RN (RETIRED) Wound 06/20/13 1830 by 02/09/22 0646 Kory Chew RN Philibert, [place] Camejo RN PIV 11/18/21; 1230; basilic 11/18/21 1230 by 2 1027 by vein (medial side of Jumana Saab Andrea arm), right; James RN [id number] catheter system; 22 gauge; JW; distraction, tolerated well, appears comfortable; 1; 12/29/21 (LDA Cleanup utility RA#[id number]); 1027 (LDA Cleanup utility RA#[id number]) PIV 12/29/21; 0702; cephalic 12/29/21 0702 by 0952 by vein (lateral side of Karen Bauman RN Rayno, Sarah E, RN arm), right; [id number] catheter system; Anatomical Landmarks; 20 gauge, 1 in length; Anesthesia; distraction, tolerated well, appears comfortable; 1; 12/29/21; 0952 Supraglottic Mask Ventilation: Not 12/29/21 0741 by 12/29/21 0819 by Attempted (0); LMA Type: Milton Son K evin C iGel; LMA Size: 5; Inserted by: MAREN Mas documented in this encounter Social History Tobacco [...] encounter OR Notes Anesthesia Postprocedure Evaluation - Keiry Dimas MD - 12/29/2021 6:19 PM EDT Department of Anesthesiology Post-procedure Note Patient: Leroy Torres Procedure Summary Date: 12/29/21 Room / Location: [facility] OR [facility] MAIN OR Anesthesia Start: 728 Anesthesia Stop: 836 Procedures: MICROSCOPE USE (WRVU 3.46) (Left Ear) MYRINGOTOMY ASPIRATION OF MIDDLE EAR (WRVU 1.38) (Left Ear) Diagnosis: Chronic mucoid otitis media of left ear Mixed conductive and sensorineural hearing loss of left ear with restricted hearing of right ear ETD (Eustachian tube dysfunction), left (chronic otitis media with effusion, left ear) Surgeons: Iraj Scott MD Responsible Provider: Keiry Dimas MD Anesthesia Type: general ASA Status: 3 All Anesthesia Providers: Anesthesiologist: Keiry Dimas MD GROUP CARE WORKER: Lane Poole CRNA Student Nurse Chair Mechanic: Milton Son Vitals Value Taken Time BP 148/66 12/29/21 0925 Temp 36.7 ??C (98.1 ??F) 12/29/21 0951 Pulse 71 12/29/21 0901 Resp 17 12/29/21 0901 SpO2 95 % 12/29/21 0925 Pain Level 0 12/29/21 0951 Vitals shown include unvalidated device data. Patient Location: PACU/[facility] Level of Consciousness: Conscious but Sleepy Pain Management: Satisfactory Analgesia PONV: None Cardiovascular Status: At Baseline and Hemodynamically Stable Respiratory Status: At Baseline and Supplemental O2 (NC or FM) Postoperative Fluid Status: Intravascular EUvolemia Possible Anesthetic Complications: NONE apparent at time of evaluation Final Primary Anesthesia Type: General (The anesthetic type performed was the same as planned.) Comments: Keiry Dimas MD Anesthesia Preprocedure Evaluation - Keiry Dimas MD - 12/29/2021 6:52 AM EDT Pre-Anesthesia Evaluation for: Leroy Torres a 66 y.o. male. Procedure(s): MYRINGOTOMY, INSERTION OF TUBE (WRVU 2.01) MICROSCOPE USE (WRVU 3.46) Patient Active Problem List Diagnosis Date Noted ??? Mixed conductive and sensorineural hearing loss [...] immunotherapy 03/21/2019 ??? Persistent proteinuria 03/08/2017 ??? 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 [...] II diabetes mellitus with renal manifestations 08/02/2006 History reviewed. No pertinent past medical history. Past Surgical History: Procedure Laterality Date ??? [...] Biopsy Bone Marrow 10/22/2021 Richar Lo MD [facility] RAD CT SCAN ??? PRO AMPUTATION LOW LEG THRU TIB/FIB 06/21/2011 ??AMPUTATION, BELOW-KNEE performed by HENNA GAMINO JR at [facility] MAIN OR ??? PRO LAP, APPENDECTOMY 06/16/2013 LAPAROSCOPIC APPENDECTOMY performed by Angel Mccann MD at [facility] MAIN OR ??? US RENAL TRANSPLANT LEFT Left 06/26/2019 US Renal Transplant Left 06/26/2019 [facility] RAD ULTRASOUND Social History Tobacco Use ??? Smoking status: Former Smoker Packs/day: 2.00 Years: 20.00 Pack years: 40.00 Types: Cigarettes Quit date: 01/19/1993 Years since quittin.9 ??? Smokeless tobacco: Never Used Substance Use Topics ??? Alcohol use: Yes Comment: Once a year Social History Substance and Sexual Activity Drug Use No Allergies Allergen Reactions ??? Penicillins Anaphylaxis ??? Iftikhar Inhibitors Cough ??? Clindamycin Hcl Rash ??? Allergenic Extracts Birch and Nut Trees, cats, dust, pollen bird feathers ??? Ibuprofen ??? Sulfamethoxazole-Trimethoprim Medications: MAR and/or home medications have been reviewed. Physical Exam: Preprocedure Vitals Current as of 12/29/21 0652 BP: 161/64 Pulse: 72 Resp: 18 SpO2: 97 Temp: 37.5 ??C (99.5 ??F) Height: 193 cm (6' 4) (12/29/21) Weight: 129.3 kg (285 lb) (12/29/21) BMI: 34.69 IBW: 86.8 kg (191 lb 4.5 oz) Last edited 12/29/21626 by CG Airway Assessment: Mallampati: III TM distance: >3 FB Neck ROM: full Cardiovascular Assessment: Rhythm: regular Rate: normal Pulmonary Assessment: unlabored breathing Dental Assessment: Misc Assessment: IV access: Peripheral line Last Filed Perioperative Cognitive Screening None Anesthesia Plan: ASA 3 general, with a(n) intravenous induction Attending Assessment: ?? Patient personally seen and examined. ?? Leroy Torres is a 66 y.o. 129 kg (BMI 35) male presenting for insertion of ear tubes pmhx: morbidly obese male with IDDM, COPD w/ + tobacco hx, HTN, CKD s/p renal x- plant in 2007 (on cellcept and prograf) and bilateral BKAs presenting for Left hydrocele repair. Prior grade 1 view with 2 person bag/mask ventilation and glide (8.0 ETT used). Pt did have prior direct laryngoscopy with Mac 4 providing a grade 2 view. He has also had successful airway management with i gel 5 LMA in the past. Stress echo on 11-08-17 revealed an EF of 65%, no , ischemic signs or WMAs(+ trace MR/TR). Aside from the above HPI, pertinent negatives and positives listed below: No cardiopulmonary issues. No recent URI. Adequate functional status No GERD (asymptomatic in preop). Denies PONV Meds: reviewed Allergies -- Penicillins -- Anaphylaxis -- Iftikhar Inhibitors -- Cough -- Clindamycin Hcl -- Rash -- Allergenic Extracts -- Birch and Nut Trees, cats, dust, pollen bird feathers -- Ibuprofen -- Sulfamethoxazole-Trimethoprim Patient Vitals in the past 24 hrs: 12/29/21 0627, BP:161/64, Temp:37.5 ??C (99.5 ??F), Temp src:Temporal, Pulse:72, Resp:18, SpO2:97 %,Height:193 cm (6' 4), Weight:129.3 kg (285 lb) Labs: Lab Results Component Value Date HGB 8.1 12/16/2021 PLATELET 189 12/16/2021 INR 1.1 10/22/2021 NA 135 10/22/2021 K 5.2 12/16/2021 CREATININE 3.4 12/16/2021 No results for input(s): ABORH in the last 7068 hours. Lab Results Component Value Date HA1C 6.4 (H) 10/05/2021 Glucose Lvl Date Value Ref Range Status 10/22/2021 118 65 - 199 mg/dL Final Comment: Diabetes: >=200 mg/dL plus symptoms NPO status adequate EKG 2020: Sinus rhythm with 1st degree A-V block with Premature atrial complexes ?? Plan: - standard ASA monitors, PIV - GA with LMA ?? The patient was informed of the risks, benefits and alternatives of anesthesia. These risks included, but were not limited to, post-operative nausea and/or vomiting, pain, sore throat, dental/lip injury, and other rare but serious complications such as cardiac instability/arrest, neurologic event, awareness, severe allergic reactions, position-related nerve injuries, and need blood transfusions. All questions answered. Consent was signed and placed in chart. Region - Other Informed Consent: Anesthetic plan and risks discussed with patient. Plan discussed with GROUP CARE WORKER and attending. Anesthesia Screening documented in this encounter Plan of Treatment Upcoming Encounters Date Type Specialty Care Team Description 05/26/2022 Office Visit Otolaryngology Ricardo Panda PA [facility] [address] [place] [address] (Wo rk) 06/02/2022 Infusion Hematology and Oncology 06/16/2022 Infusion Hematology and Oncology 06/21/2022 Office Visit Neurology Tyler Rojas MD [facility] Neurology [place], [place] [phone] (Wo rk) 06/30/2022 Infusion Hematology and Oncology 07/14/2022 Infusion Hematology and Oncology 07/28/2022 Infusion Hematology and Oncology 08/11/2022 Infusion Hematology and Oncology 11/04/2022 Office Visit Rheumatology Dante Freedman PA [facility] RHEUMATOLOGY [place], [place] [address] (Wo rk) documented as of this encounter Visit Diagnoses Not on filedocumented in this encounter Administered Medications Inactive Administered Medications - up to 3 most recent administrations Medication Order MAR Action Action Date Dose Rate Site ePHEDrine sulfate (5 mg/mL) Given 12/29/2021 8:20 AM EDT 5 mg multi-dose injection Intravenous, PRN, Starting on Tue12/29/21 at 0803, Until Tue12/29/21 at 0837, Anesthesia Intra-op, Routine Given 12/29/2021 8:03 AM EDT 5 mg fentaNYL (pf) (50 mcg/mL) multi-dose Given 12/29/2021 8:24 AM ED T 25 mcg injection Intravenous, PRN, Starting on Tue12/29/21 at 0748, Until Tue12/29/21 at 0837, Anesthesia Intra-op, Routine Given 12/29/2021 7:55 AM EDT 25 mcg Given 12/29/2021 7:48 AM EDT 25 mcg lactated ringers infusion Restarted 12/29/2021 7:30 AM EDT 1,000 mL, at 100 mL/hr, Intravenous, CONTINUOUS, Starting on Tue12/29/21 at 0715, Until Tue12/29/21 at 0952, Day of Surgery (Day of Procedure) New Bag 12/29/2021 7:03 AM EDT 1,000 mLs 100 mL/hr lidocaine (pf) (Xylocaine) (20 mg/mL) 2% Given 12/29/2021 7:40 A M EDT 100 mg injection syringe Intravenous, PRN, Starting on Tue12/29/21 at 0740, Until Tue12/29/21 at 0837, Anesthesia Intra-op, Routine ondansetron (pf) (Zofran) (2 mg/mL) inje ction Given 12/29/2021 7:49 AM EDT 4 mg Intravenous, PRN, Starting on Tue12/29/21 at 0749, Until Tue12/29/21 at 0837, Anesthesia Intra-op, Routine propofoL (Diprivan) 10 mg/mL bolus injection Given 01/2022 7:40 AM EDT 200 mg (Anesthesia) Intravenous, PRN, Starting on Tue12/29/21 at 0740, Until Tue12/29/21 at 0837, Anesthesia Intra-op documented in this encounter Care Teams Precision Inspector Relationship Specialty Start Date End Date Violetta Sanford MD PCP - General 04/02/14 [address] [place] [address] documented as of this encounter
--- OUTSIDE RECORDS SUMMARY | 2022-05-24 10:47 | XMS_ITS | Encounter Summary ---
:1955 Author Organization [facility] [place] [address] Care Team Providers Name Role Phone Violetta Sanford MD Primary Care Provider Encounter Details Date Type Department Care Team Description 12/29/2021 Hospital Encounter Same Day Program at Cristian Scott MD Chronic mucoid otitis media of left ear; [facility] conduct roderick and sensorineural hearing loss of left ear with restricted hearing of right ear; [facility] DR MACIAS (Eustachian tube dysfunction), left [facility] [place] [id number] [phone] Social History Tobacco Use Types Packs/Day Years [...] Sign Reading Time Taken Comments Blood Pressure 148/66 12/29/2021 9:25 AM EDT Pulse 71 12/29/2021 9:00 AM EDT Temperature 36.7 ??C (98.1 ??F) 12/29/2021 9:51 AM EDT Respiratory Rate 18 12/29/2021 9:00 AM EDT Oxygen Saturation 95% 12/29/2021 9:25 AM EDT Inhaled Oxygen Concentration - - [...] -You can reach the ENT clinic at [phone] for appointment questions. -The ENT triage nurse is available at [phone] -For urgent issues during evenings and weekends the ENT resident production line worker can be reached through the main hospital gauge machine operator at [phone] Currently Scheduled Appointments: Future Appointments and Orders Future Appointments and Orders Future Appointments Provider Department Dept Phone 12/30/2021 12:00 PM [facility], ROOM Hematology Oncology at [facility] Arrive at: [facility] door at end of hallway [phone] 01/13/2022 10:00 AM [facility] INFUSION, ROOM Hematology Oncology at [facility] Arrive at: [facility] door at end of hallway [phone] 01/13/2022 11:00 AM Margaret Purvis APRN Hematology/Oncology at [facility] Arrive at: [facility] door at end of hallway [phone] 01/21/2022 11:00 AM Donell Hernandez MD Endocrinology at [facility] Arrive at: Inside Account Representative Area 3A [phone] 01/27/2022 4:00 PM Patti Sanchez, WENDI; AUDIOLOGY, [facility] Audiology at [facility] Arrive at: Inside Account Representative Area 4F [phone] 01/27/2022 4:40 PM Iraj Scott MD Otolaryngology at [facility] Arrive at: Inside Account Representative Area 4F [phone] 02/16/2022 3:00 PM Shira Ramírez APRN Gastroenterology at [facility] Arrive at: Inside Account Representative Area 4L [phone] 06/21/2022 11:00 AM Shivam Rojas MD Neurology at [facility] Arrive at: Inside Account Representative Area 3C [phone] documented in this encounter Medications at Time [...] Use to continuously 1 each 0 2 [facility] monitor blood glucose. Scan at least [...] 6 kit 3 01/13/2021 Day Sensor Kit [facility].(Non-Drug; Combo Route) route every 14 days. Use to continuously monitor blood glucose. Scan at least 5 times per day. DX: E11.65 darbepoetin cristy in Inject 300 mg as 0 polysorbat 10 mcg/0.4 directed as needed. mL Syringe cyanocobalamin, Take 100 mcg by mouth 0 Vitamin B-12, daily. (Vitamin B-12) 100 mcg Tablet Blood-Glucose Sensor by [facility].(Non-Drug; 0 (Dexcom G6 Sensor) Combo Route) route. Device Sensor, tar heater operator andtransmitter metoprolol succinate Take 1 tablet by mouth 90 tablet 1 04/2020 XL (Toprol-XL) 50 mg daily. Tablet Sustained Release 24 hr amLODIPine (Norvasc) Take 0.5 tablets by 90 tablet 3 2019 10 mg Tablet mouth daily. fluticasone INSTILL 2 SPRAYS INTO 0 09/06/2019 propionate (FLONASE) EACH NOSTRIL ONCE A 50 mcg/actuation DAY NEEDED [place], Suspension multivitamin with Take 1 tablet by [...] Devices by 4 each 0 12/02/2015 Supply Misc.(Non-Drug; Combo MiscIndications: S/P Route) route daily. bilateral [...] Gilberto 2 Sensor Kit 1 each by [facility].(Non-Drug; Combo Route) route every 14 days. Use to continuously monitor blood glucose. Scan at least 4 times per day. 6 kit 3 ??? FreeStyle Gilberto 2 [facility] Use to continuously monitor blood glucose. [...] 14 Day Sensor Kit 1 each by [facility].(Non-Drug; Combo Route) route every 14 days. [...] Blood-Glucose Sensor (Dexcom G6 Sensor) Device by [facility].(Non-Drug; Combo Route) route. Sensor, tar heater operator andtransmitter ??? metoprolol succinate XL (Toprol-XL) 50 mg Tablet Sustained Release 24 hr Take 1 tablet by mouth daily. 90 tablet 1 ??? amLODIPine (Norvasc) 10 mg Tablet Take 0.5 tablets by mouth daily. 90 tablet 3 ??? fluticasone propionate (FLONASE) 50 mcg/actuation [place], Suspension INSTILL 2 SPRAYS INTO EACH NOSTRIL [...] gauge x 1/2 Needle 1 Device by [facility].(Non- Drug; Combo Route) route 3 times [...] Reported on 08/06/2016 ??? Miscellaneous Medical Supply [facility] 4 Devices by [facility].(Non-Drug; Combo Route) route daily. Rubber sheath [...] Otolaryngology - Head & Neck Surgery Pgr: [id number] documented in this encounter Miscellaneous Notes Op Note - Iraj Scott MD - 12/29/2021 7:51 AM EDT [facility] Operative Note Patient Name: Leroy Torres : [id number] MR#: [id number] Case Date: 12/29/2021 Surgeon: Surgeon(s) and Role: [...] 05/26/2022 Office Visit Otolaryngology Ricardo Panda PA [facility] [address] [place] [address] (Wo gregg) 06/02/2022 Infusion Hematology and Oncology 06/16/2022 Infusion Hematology and Oncology 06/21/2022 Office Visit Neurology Tyler Rojas MD [facility] [place]rology [place] [phone] (Wo gregg) 06/30/2022 Infusion Hematology and Oncology 07/14/2022 Infusion Hematology and Oncology 07/28/2022 Infusion Hematology and Oncology 08/11/2022 Infusion Hematology and Oncology 11/04/2022 Office Visit Rheumatology Dante Freedman PA [facility] RHEUMATOLOGY [place], [place] [address] (Wo rk) documented as of this encounter Procedures Procedure Name Priority Date/Time Associated Diagnosis Comme nts POCT GLUCOSE Routine 12/29/2021 8:43 Results for this AM EDT procedure are i n the results section. HC PC IMMUNOFIXATION Routine 12/29/2021 8:10 Res ults for [...] Results POCT Glucose (12/29/2021 8:43 AM EDT) P athologist Signature POC Glucose 160 65 - [address] [facility] mg/dL [facility] Comment: Supplemental ranges: <140 mg/dL before meals <180 mg/dL all other times of the day Specimen Anatomical Collection Method Collection Time Receive d Time (Source) Location / / Volume Laterality Blood 12/29/2021 8:43 AM 8:43 EDT AM EDT Iraj Scott MD POINT OF CARE TEST ORDERABLE S Performing Organization Address City/State/ZIP [place] [address] Beta 2 Transferrin Body Fluid Other (12/29/2021 8:10 AM EDT) Analysis Performed At Patho logist Time Signature Beta-2 Trans Negative [facility] Comment: REFERENCE VALUE------ Negative, no beta-2 transferrin (spinal fluid) detected. ADDITIONAL INFORMATIO N This test was developed and its performa nce characteristics determined by [facility] in a manner co nsistent with CLIA requirements. This test has not been carlos ared or approved by the U.S. Food and Drug Administration. Test Performed by: [facility] [address] [place] [address] Interface Control Officer: Van White M.D. Ph. D.; CLIA# [id number] Specimen Anatomical Collection Method Collection Time Receive d Time (Source) Location / / Volume Laterality Body Fld 12/29/2021 8:10 AM 2 5:20 EDT PM EDT Resulting Agency Comment Spec In Lab Iraj Scott MD BODY FLUIDS AND STOOLS ORDER STEPHANIE Performing Organization Address City/[facility]/[place]IP [place] [address] POCT Glucose (12/29/2021 6:35 AM EDT) P athologist Signature POC Glucose 185 65 - [address] [facility] mg/dL [facility] Comment: Supplemental ranges: <140 mg/dL before meals <180 mg/dL all other times of the day Specimen Anatomical Collection Method Collection Time Receive d Time (Source) Location / / Volume Laterality Blood 12/29/2021 6:35 AM 2 6:35 EDT AM EDT Iraj Scott MD POINT OF CARE TEST ORDERABLE S Performing Organization Address City/[facility]/[place]IP [place] [address] documented in this encounter [...] 7:03 AM EDT 1,000 mLs 100 mL/hr documented in this encounter Active [...] Routine documented in this encounter Care Teams Fnp Relationship Specialty Start Date End Date Violetta Sanford MD PCP - General 04/02/14 [address] [place] [address] (work) documented as of this encounter
--- OUTSIDE RECORDS SUMMARY | 2022-05-24 10:47 | XMS_ITS | Encounter Summary ---
:1955 Author Organization [facility] [place] [address] Care Team Providers Name Role Phone Violetta Sanford MD Primary Care Provider Encounter Details Date Type Department Care Team Description 10/28/2021 Telephone Otolaryngology at [facility] [phone] Social History Tobacco Use Types Packs/Day Years [...] this encounter Miscellaneous Notes Telephone Encounter - Niyah Ricci - 10/28/2021 9:22 AM EDTSummary: Image Request - [facility] From: Niyah Ricci Sent: Thursday, October 28, 2021 9:21 AM To: '[email or web address]' <[email or web address]> Subject: Urgent Image Request Patient: Leroy Torres : 1955 [facility], The above patient was referred to our ENT clinic at [facility]. Patient had images done at your facility and are needed here for proper transition. Please forward the images & reports NED for our provider to review. Specific images & reports we are looking for are CT Scan done 2020. Please send them electronically to [facility] to the attention of Dr. Iraj Scott. If you do not have the capability to send electronically please send the images & reports on a disc to: [facility] Department of Otolaryngology [address] [place], [place] [id number] Please use FedEx number [id number] to overnight the disc Thank you, Niyah Ricci Sr. Clinical Glady, Oral & Maxillofacial Surgery, Otolaryngology, and Audiology [facility] phone: [phone] fax: [phone] documented in this encounter Plan of Treatment Upcoming Encounters Date Type Specialty Care Team Description 05/26/2022 Office Visit Otolaryngology Ricardo Panda PA [facility] [address] [place], [place] [address] (Wo rk) 06/02/2022 Infusion Hematology and Oncology 06/16/2022 Infusion Hematology and Oncology 06/21/2022 Office Visit Neurology Tyler Rojas MD [facility] Neurology [place], [place] [phone] (Wo rk) 06/30/2022 Infusion Hematology and Oncology 07/14/2022 Infusion Hematology and Oncology 07/28/2022 Infusion Hematology and Oncology 08/11/2022 Infusion Hematology and Oncology 11/04/2022 Office Visit Rheumatology Dante Freedman PA [facility] RHEUMATOLOGY [place], [place] [address] (Wo rk) documented as of this encounter Visit Diagnoses Not on filedocumented in this encounter Care Teams Rn Home Health Relationship Specialty Start Date End Date Violetta Sanford MD PCP - General 04/02/14 [address] [facility] [address] [place] [address] documented as of this encounter
--- OUTSIDE RECORDS SUMMARY | 2022-05-24 10:47 | XMS_ITS | Encounter Summary ---
:1955 Author Organization [facility] [place] [address] Care Team Providers Name Role Phone Violetta Sanford MD Primary Care Provider Reason for Visit Reason Onset Date Comments Labs Only 11/26/2021 Lab tracking Encounter Details Date Type Department Care Team Description 11/26/2021 Telephone Hematology/Oncology at Brittany Vera RN Labs Only (Lab tracking) [address] [phone] Social History Tobacco Use Types [...] Telephone Encounter - Brittany Vera RN - 11/26/2021 11:47 AM EDT LAB TRACKING Leroy Torres [id number] 1955 ?? DIAGNOSIS: Anemia d/t CKD stage IV, h/o kidney transplant ?? LABS: CBC every 4 weeks as of 05/27/21 ?? MEDICATIONS: Aranesp 300 mcg every 2 weeks if HGB <12 as of 05/27/21 venofer x 3 weeks starting 4/27/22 ?? ASSESSMENT/PLAN: Reviewed labs with Dr Baez. Due for arensp and venofer again on 12/02/21. Labs due in 3 weeks on december 16. Spoke with pt who agrees with plan. Latest Reference Range & Units 10/22/21 11:44 11/18/21 00:00 11/26/21 00:00 WBC 4.0 - 9.5 x10(3)/mcL 6.0 7.73 (E) 6.31 (E) RBC 4.58 - 5.54 x10(6)/mcL 2.76 (L) Hemoglobin 13.7 - 16.5 g/dL 8.2 (L) 7.6 (E) 7.7 (E) Hematocrit 40.5 - 48.5 % 27.1 (L) 25.7 (E) 26.3 (E) MCV 82.9 - 93.1 fL 98.2 (H) MCH 27.5 - 32.1 pg 29.7 MCHC 32.0 - 35.7 g/dL 30.3 (L) RDWSD 36.0 - 45.0 fL 51.1 (H) RDWCV 11.4 - 13.8 % 14.3 (H) Platelets 145 - 357 x10(3)/mcL 169 197 (E) 181 (E) MPV 7.6 - 12.9 fL 8.3 NRBC % Auto % 0.0 NRBC Abs Auto 0.000 - 0.000 x10(3)/mcL 0.000 Neutr Abs (ANC) 1.70 - 6.10 x10(3)/mcL 3.57 5.02 (E) 3.59 (E) (L): Data is abnormally low (H): Data is abnormally high (E): External lab result documented in this encounter Plan of Treatment Upcoming Encounters Date Type Specialty Care Team Description 05/26/2022 Office Visit Otolaryngology Ricardo Panda PA [facility] [address] [place], [place] [address] (Wo rk) 06/02/2022 Infusion Hematology and Oncology 06/16/2022 Infusion Hematology and Oncology 06/21/2022 Office Visit Neurology Tyler Rojas MD [facility] Neurology [place], [place] [phone] (Wo rk) 06/30/2022 Infusion Hematology and Oncology 07/14/2022 Infusion Hematology and Oncology 07/28/2022 Infusion Hematology and Oncology 08/11/2022 Infusion Hematology and Oncology 11/04/2022 Office Visit Rheumatology Dante Freedman PA [facility] RHEUMATOLOGY [place], [place] [address] (Wo rk) documented as of this encounter Procedures Procedure Name Priority Date/Time Associated Diagnosis Comme nts CBC (WITH DIFF) Routine 11/26/2021 Results for this procedure are in the resu lts section. documented in this encounter Results CBC (with Diff) (11/26/2021) P athologist Signature WBC 6.31 Hemoglobin 7.7 Hematocrit 26.3 Platelets 181 Neutr Abs (ANC) 3.59 Specimen (Source) Anatomical Location Collection Method / Collectio n Time Received Time / Laterality Volume Blood 11/26/2021 Historical Provider HEMATOLOGY ORDERABLES documented in this encounter Visit Diagnoses Not on filedocumented in this encounter Care Teams Curriculum And Assessment Coordinator Relationship Specialty Start Date End Date Violetta Sanford MD PCP - General 04/02/14 [address] [place] [address] documented as of this encounter
--- OUTSIDE RECORDS SUMMARY | 2022-05-24 10:48 | XMS_ITS | Encounter Summary ---
:1955 Author Organization [facility] Address [facility] [place] [address] Care Team Providers Name Role Phone Violetta Sanford MD Primary Care Provider Encounter Details Date Type Department Care Team Description 10/05/2021 Laboratory Lab 3L Sylvia CKD (chronic ki dney disease) stage 4, GFR 15- 29 ml/min; Appointment [facility] Anemia of chronic renal failure, stage 4 (severe); Hospital H/O kidney transplant; [facility] Tiredness ; Drive Abnormal red blood cells; [place], [place] Renal failure, unspecified chronicity ; [id number] Type 2 diabetes mellitus wit h hyperglycemia, with long-term current use of insulin; [phone] Other complicat ion of kidney transplant; 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 Social History Tobacco Use Types Packs/Day Years [...] Panda PA [facility] [address] [place] [address] (Wo rk) 06/02/2022 Infusion Hematology and Oncology 06/16/2022 Infusion Hematology and Oncology 06/21/2022 Office Visit Neurology Tyler Rojas MD [facility] [address] [place], [place] [phone] (Wo rk) 06/30/2022 Infusion Hematology and Oncology 07/14/2022 Infusion Hematology and Oncology 07/28/2022 Infusion Hematology and Oncology 08/11/2022 Infusion Hematology and Oncology 11/04/2022 Office Visit Rheumatology Dante Freedman PA [facility] RHEUMATOLOGY [place], [place] [address] (Wo rk) documented as of this encounter Procedures Procedure Name Priority Date/Time Associated Diagnosis Comme nts COVID-19 SPIKE ANTIBODY STAT 10/05/2021 8:39 R esults for this AM EDT procedure are i n the results section. COVID-19 SPIKE ANTIBODY Routine 10/05/2021 8:39 H/O kidney R esults for this AM EDT transplant procedure are in Other complication the resul ts of kidney transp lant section. Immunocompromised state due to drug therapy HEMOGRAM STAT 10/05/2021 8:39 CKD (chronic kidney Resul ts for this AM EDT disease) stage 4, procedure are in GFR 15-29 ml/min the results Anemia of chronic section. renal failure, stage 4 (severe) H/O kidney transplant DIFFERENTIAL, AUTOMATED STAT 10/05/2021 8:39 CKD (chronic k idney Results for this AM EDT disease) stage 4, procedure are in GFR 15-29 ml/min the results Anemia of chronic section. renal failure, stage 4 (severe) H/O kidney transplant HC FK-506 (TACROLIMUS) Routine 10/05/2021 8:39 H/O kidney Re sults for this AM EDT transplant procedure are i n the results section. HC IRON BINDING STAT 10/05/2021 8:39 CKD (chronic kidney Re sults for this CAPACITY AM EDT disease) stage 4, procedure are in GFR 15-29 ml/min the results Anemia of chronic section. renal failure, stage 4 (severe) H/O kidney transplant HC [facility] COPPER SERUM STAT 10/05/2021 8:39 CKD (chronic kidne y Results for this AM EDT disease) stage 4, procedure are in GFR 15-29 ml/min the results Anemia of chronic section. renal failure, stage 4 (severe) H/O kidney transplant Abnormal red blood cells Renal failure, unspecified chronicity HC RETIC,AUTO INCLUDES STAT 10/05/2021 8:39 CKD (chronic ki dney Results for this RETHE & IRF AM EDT disease) stage 4, procedure are in GFR 15-29 ml/min the results Anemia of chronic section. renal failure, stage 4 (severe) H/O kidney transplant HC VENIPUNCTURE STAT 10/05/2021 8:39 CKD (chronic kidney AM EDT disease) stage 4, GFR 15-29 ml/min Anemia of chronic renal failure, stage 4 (severe) H/O kidney transplant HC DIRECT ANTI-GLOBULIN STAT 10/05/2021 8:39 CKD (chronic k idney Results for this TEST, BROAD SPECTRUM AM EDT disease) stage 4, pr ocedure are in GFR 15-29 ml/min the results Anemia of chronic section. renal failure, stage 4 (severe) H/O kidney transplant HC URIC ACID, SERUM Routine 10/05/2021 8:39 H/O kidney Resul ts for this AM EDT transplant procedure are i n the results section. HC THYROID STIMULATING STAT 10/05/2021 8:39 CKD (chronic ki dney Results for this HORMONE, SERUM AM EDT disease) stage 4, procedur e are in GFR 15-29 ml/min the results Anemia of chronic section. renal failure, stage 4 (severe) H/O kidney transplant Tiredness HC SERUM PROT. STAT 10/05/2021 8:39 CKD (chronic kidney Res ults for this ELECTROPHORESIS AM EDT disease) stage 4, procedu re are in GFR 15-29 ml/min the results Anemia of chronic section. renal failure, stage 4 (severe) H/O kidney transplant HC PHOSPHORUS, SERUM Routine 10/05/2021 8:39 H/O kidney Resu lts for this AM EDT transplant procedure are i n the results section. HC MAGNESIUM, SERUM Routine 10/05/2021 8:39 H/O kidney Resul ts for this AM EDT transplant procedure are i n the results section. HC LACTIC DEHYDROGENASE STAT 10/05/2021 8:39 CKD (chronic k idney Results for this AM EDT disease) stage 4, procedure are in GFR 15-29 ml/min the results Anemia of chronic section. renal failure, stage 4 (severe) H/O kidney transplant HC HEMOGLOBIN A1C STAT 10/05/2021 8:39 Type 2 diabetes Resu lts for this AM EDT mellitus with procedure are in hyperglycemia, with the resu lts long-term current section. use of insulin HC FOLATE, SERUM STAT 10/05/2021 8:39 CKD (chronic kidney R esults for this AM EDT disease) stage 4, procedure are in GFR 15-29 ml/min the results Anemia of chronic section. renal failure, stage 4 (severe) H/O kidney transplant HC FERRITIN, SERUM STAT 10/05/2021 8:39 CKD (chronic kidney Results for this AM EDT disease) stage 4, procedure are in GFR 15-29 ml/min the results Anemia of chronic section. renal failure, stage 4 (severe) H/O kidney transplant HC VITAMIN B12 SERUM STAT 10/05/2021 8:39 CKD (chronic kidn ey Results for this AM EDT disease) stage 4, procedure are in GFR 15-29 ml/min the results Anemia of chronic section. renal failure, stage 4 (severe) H/O kidney transplant HC CHOLESTEROL Routine 10/05/2021 8:39 H/O kidney Results fo r this AM EDT transplant procedure are i n the results section. COMPREHENSIVE METABOLIC STAT 10/05/2021 8:39 CKD (chronic k idney Results for this PANEL (NON-FASTING) AM EDT disease) stage 4, pro cedure are in GFR 15-29 ml/min the results Anemia of chronic section. renal failure, stage 4 (severe) H/O kidney transplant URINALYSIS MICROSCOPIC Routine 10/05/2021 5:20 Re sults for this EXAM AM EDT procedure are i n the results section. HC PROTEIN, Routine 10/05/2021 5:20 H/O kidney Results for this QUANTITATIVE, URINE AM EDT transplant procedur e are in the results section. URINALYSIS WITH REFLEX Routine 10/05/2021 5:20 H/O kidney Re sults for this CULTURE AM EDT transplant procedure are i n the results section. documented in this encounter Results COVID-19 Renzo Antibody (10/05/2021 8:39 AM EDT) [facility] Time Signature SARS-CoV-2 Detected SYLVIA [facility] LABORATORY Comment: This is a total antibody assay to the sp meenakshi protein of SARS-CoV-2. It does not distinguish between IgG and IgM antibodi es to SARS-CoV-2. This test will detect antibodies made against the spike protei n due to vaccination or from a previous infection. Results cannot be used to diagnose acute SARS-CoV-2 (Severe acute respiratory syndrome coronavirus 2, also known as novel coronavirus or 2019-nCoV) infection. A 'Not Detected' result does not rule ou t SARS-CoV-2 infection, particularly in those who have been in contact with the virus. Follow-up testing with a molecular diagnostic test to SARS-CoV-2 should be considered for individuals with symptoms of active SARS-CoV-2 infec tion. A 'Detected' result cannot be interprete d as conclusive evidence of protective immunity to the SARS-CoV-2 virus. Detect ion may be due to a past infection with fgj-QDUS-TqF-2 coronavirus strains, such as coronavirus HKU1, NL63, OC43, or 229E. This test was performed using the Elecsy s Jerf-PKTI-GeA-2 S total antibody assay on the [employer] e801 analyzer. This serology test is available following FDA Emergency Use Authorizatio n, however it has not been reviewed by the FDA, nor is it FDA cleared or approv ed. The performance characteristics of this test were determined by the [facility] ent of Pathology and Laboratory Medicine at [facility]. The laboratory is certified under the Clinical Laboratory Improvemen t Amendments of 1988 (CLIA), 42 U.S.C. section 263a, to perform high complexity tests. Results should not be used as the sole b asis to diagnose or exclude SARS-CoV-2 infection, to inform infection status, o r to screen donated blood. CDC COVID-19 criteria for testing on hum an specimens and clinical management guidance information are available at th e CDC Coronavirus Disease 2019 (COVID-19) webpage under Information fo r Healthcare Professionals (https://www.cdc.gov/coronavirus/2019-nc ov/hcp/index.html) Additional information about this and ot her EUA tests can be found in provider and patient fact sheets at the following FDA website: https://www.fda.gov/medical-devices/ioetigqdkmt-itamwwq-1076-pkzvh-60-ofjjhwwtu- ybn-ibvtopwjazskek-wxtpxbx-devices/eyzvp-qrtjypvgmdb-jcli Specimen Anatomical Collection Method Collection Time Receive d Time (Source) Location / / Volume Laterality Blood Venous Draw / 10/05/2021 8:39 AM 10/06/19 8:55 Unknown EDT AM EDT Resulting Agency Comment Spec In Lab Alejo Garnett MD CHEMISTRY ORDERABLES Performing Organization Address City/State/[place] [address] COVID-19 Renzo Antibody (10/05/2021 8:39 AM EDT) Analysis Performed At Patho logist Time Signature SARS-CoV-2 Not Perf [facility] LABORATORY Comment: This is a total antibody assay to the sp meenakshi protein of SARS-CoV-2. It does not distinguish between IgG and IgM antibodi es to SARS-CoV-2. This test will detect antibodies made against the spike protei n due to vaccination or from a previous infection. Results cannot be used to diagnose acute SARS-CoV-2 (Severe acute respiratory syndrome coronavirus 2, also known as novel coronavirus or 2019-nCoV) infection. A 'Not Detected' result does not rule ou t SARS-CoV-2 infection, particularly in those who have been in contact with the virus. Follow-up testing with a molecular diagnostic test to SARS-CoV-2 should be considered for individuals with symptoms of active SARS-CoV-2 infec tion. A 'Detected' result cannot be interprete d as conclusive evidence of protective immunity to the SARS-CoV-2 virus. Detect ion may be due to a past infection with jga-SCIO-SiX-2 coronavirus strains, such as coronavirus HKU1, NL63, OC43, or 229E. This test was performed using the Elecsy s Sfey-NTEB-WnA-2 S total antibody assay on the [employer] e801 analyzer. This serology test is available following FDA Emergency Use Authorizatio n, however it has not been reviewed by the FDA, nor is it FDA cleared or approv ed. The performance characteristics of this test were determined by the [facility] ent of Pathology and Laboratory Medicine at [facility]. The laboratory is certified under the Clinical Laboratory Improvemen t Amendments of 1988 (CLIA), 42 U.S.C. section 263a, to perform high complexity tests. Results should not be used as the sole b asis to diagnose or exclude SARS-CoV-2 infection, to inform infection status, o r to screen donated blood. CDC COVID-19 criteria for testing on hum an specimens and clinical management guidance information are available at e CDC Coronavirus Disease 2019 (COVID-19) webpage under Information fo r Healthcare Professionals (https://www.cdc.gov/coronavirus/2019-nc ov/hcp/index.html) Additional information about this and ot her EUA tests can be found in provider and patient fact sheets at the following FDA website: https://www.fda.gov/medical-devices/stxhmkckbul-zafjoma-4170-czezw-03-wremvulmq- odo-pwbldyytnxmpug-iunmvsi-devices/falwb-unfikbjofns-apwe Specimen Anatomical Collection Method Collection Time Receive d Time (Source) Location / / Volume Laterality Blood 10/05/2021 8:39 AM EDT 11:24 AM EDT Alejo Garnett MD CHEMISTRY ORDERABLES Performing Organization Address City/State/ZIP Code Phon e Number [place] [phone] Differential, Automated (10/05/2021 8:39 AM EDT) P athologist Signature Neutrophils % 57.1 % [facility]ORATORY Neutr Abs (ANC) 3.72 1.70 - [facility] 6.10 [facility] x10(3)/[facility] LABORATORY Lymphocytes % 27.3 % [facility] Lymphocytes Abs 1.8 0.9 - 3.2 [facility] x10(3)/[facility] LABORATORY Monocytes % 10.7 % [facility] Monocyte Abs 0.7 0.3 - 0.9 [facility] x10(3)/[facility] LABORATORY Eosinophils % 3.8 % [facility] Eosinophils Abs 0.2 0.0 - 0.4 [facility] x10(3)/[facility] LABORATORY Basophils % 0.6 % [facility] Basophils Abs 0.0 0.0 - 0.1 [facility] x10(3)/[facility] LABORATORY Immature Gran % 0.50 % [facility]ORATORY Comment: Immature granulocytes(IG's)percentage an d absolute count will include metamyelocytes, myelocytes, and promyelo cytes. Blood smears from CBCs yielding IG's will be scanned manually for concor dance. If this scan disagrees with the automated IG or if promyelocytes are not ed, a manual differential will be performed. Courtney Gran Abs 0.03 0.00 - 0.04 x10(3)/[facility] LABORATORY Specimen Anatomical Collection Method Collection Time Receive d Time (Source) Location / / Volume Laterality Blood 10/05/2021 8:39 AM 8:52 EDT AM EDT Resulting Agency Comment Spec In Lab Nicky Baez MD HEMATOLOGY ORDERABLES Performing Organization Address City/State/[place] [address] (ABNORMAL) Hemogram (10/05/2021 8:39 AM EDT) Analysis Performed At Patho logist Time Signature WBC 6.5 4.0 - 9.5 [facility] x10(3)/[facility] LABORATORY RBC 2.75 (L) 4.58 - [facility] x10(6)/[facility] LABORATORY Hemoglobin 8.2 (L) 13.7 - [facility] 16.5 g/dL [facility] LAB[facility]ATORY Hematocrit 26.7 (L) 40.5 - [facility] 48.5 % [facility] MCV 97.1 (H) 82.9 - [facility].[address] [facility] MCH 29.8 27.5 - [facility] 32.[address] [facility] MCHC 30.7 (L) 32.0 - [facility] 35.7 g/dL [facility] Platelets 178 145 - 357 [facility] x10(3)/[facility] LABORATORY RDWSD 52.1 (H) 36.0 - [facility] 45.0 [facility] LABORATORY RDWCV 14.7 (H) 11.4 - [facility] 13.8 % [facility] LAB[facility] MPV 8.1 7.6 - 12.9 SYLVIA MELI [facility] LABORATORY nRBC % Auto 0.0 % [facility] nRBC Abs Auto 0.000 0.000 - SYLVIA MELI 0.000 [facility] x10(3)/[facility] LABORATORY Specimen Anatomical Collection Method Collection Time Receive d Time (Source) Location / / Volume Laterality Blood 10/05/2021 8:39 AM 2 8:52 EDT AM EDT Resulting Agency Comment Spec In Lab Nicky Baez MD HEMATOLOGY ORDERABLES Performing Organization Address City/[facility]/ZIP Code Phon e Number [address] Tacrolimus level (10/05/2021 8:39 AM EDT) P athologist Signature Tacrolimus Lvl 3.5 ng/mL [facility]OR[facility] Comment: Trough therapeutic range is [...] (Source) Location / / Volume Laterality Blood 10/05/2021 8:39 AM 8:52 EDT AM EDT Resulting Agency Comment Spec In Lab Alejo Garnett MD CHEMISTRY ORDERABLES Performing Organization Address City/[facility]/ZIP Code Phon e Number [address] Uric acid (10/05/2021 8:39 AM EDT) P athologist Signature Uric Acid 7.0 3.5 - 8.5 [facility] mg/dL [facility] LABORATORY Specimen Anatomical Collection Method Collection Time Receive d Time (Source) Location / / Volume Laterality Blood 10/05/2021 8:39 AM 2 8:52 EDT AM EDT Resulting Agency Comment Spec In Lab Alejo Garnett MD CHEMISTRY ORDERABLES Performing Organization Address City/[facility]/ZIP Code Phon e Number [address] Phosphorus (10/05/2021 8:39 AM EDT) P athologist Signature Phosphorus 2.9 2.5 - 4.5 [facility] mg/dL [facility] LABORATORY Specimen Anatomical Collection Method Collection Time Receive d Time (Source) Location / / Volume Laterality Blood 10/05/2021 8:39 AM 2 8:52 EDT AM EDT Resulting Agency Comment Spec In Lab Alejo Garnett MD CHEMISTRY ORDERABLES Performing Organization Address City/[facility]/ZIP Code Phon e Number [address] Magnesium (10/05/2021 8:39 AM EDT) P athologist Signature Magnesium 0.78 0.69 - 1.07 [facility] mmol/L [facility] LABORATORY Specimen Anatomical Collection Method Collection Time Receive d Time (Source) Location / / Volume Laterality Blood 10/05/2021 8:39 AM 2 8:52 EDT AM EDT Resulting Agency Comment Spec In Lab Alejo Garnett MD CHEMISTRY ORDERABLES Performing Organization Address City/[facility]/[place] [address] Cholesterol, total (10/05/2021 8:39 AM EDT) P athologist Signature Chol, Total 73 mg/dL [facility] Comment: Lower Risk: <200 mg/dL Average Risk: 200-239 mg/dL Higher Risk: >xv=751 mg/dL Lipid Interpretation See Note [facility] LABOR[facility]ORY Comment: Lipid management should be guided by a p atient? s ASCVD risk, goals and preferences. ACC/AHA Guidelines recommend high intens ity statin if clinical ASCVD or LDL greater than or equal to 190 mg/dL. http://[employer].com/BNT-XOX-Ixeezajsx Adults aged 40-75 with LDL 70-189 mg/dL should have their 10 year ASCVD risk estimated with the ACC/AHA ASCVD risk es timator http://tools.acc.org/SIZHV-Zjvz-Qifoxhmp r/ Statin should be discussed if risk [...] (Source) Location / / Volume Laterality Blood 10/05/2021 8:39 AM 8:52 EDT AM EDT Resulting Agency Comment Spec In Lab Alejo Garnett MD CHEMISTRY ORDERABLES Performing Organization Address City/State/ZIP Code Phon e Number [place] [phone] (ABNORMAL) Hemoglobin A1c (10/05/2021 8:39 AM EDT) Analysis Performed At Patho logist Time Signature Hemoglobin A1C 6.4 (H) 4.3 - 5.6 [facility] LABORATORY Comment: Reference Range: 4.3 - 5.6% 5.7 - 6.4% - Increased Risk of Developin g Diabetes Mellitus >= 6.5% - Consistent with diagnosis of D iabetes Mellitus In the absence of hyperglycemia (i.e. pl asma glucose > 200 mg/dL) or classic symptoms of hyperglycemia a repeat measu rement of HbA1c should be performed on a separate sample to confirm the diagnos is. Diagnosis and Classification of Diabetes Mellitus, Diabetes Care 2013; 36: Suppl. 1, G85-52 Est Avg Gluc 138 mg/dL [facility] LABORATORY Comment: eAG equivalents for HbA1c percentages: HbA1c(%) ?eAG(mg/dL) 6.0 ?126 6.5 ?140 7.0 ?154 7.5 ?169 8.0 ?183 8.5 ?197 9.0 ?212 9.5 ?226 10.0 ? 240 Limitations: The eAG calculation has not been validated on women, individuals below 18 years old and above 70 years old, and individuals with hemoglobinopathies. Additional resources are available on [facility] ADA website. Scooby MALDONADO, Nba J, Sydnee R, et al. ??Tr anslating the A1C assay into estimated average glucose values. ??Diabetes Care 2008:31(8):3326-0053. Specimen Anatomical Collection Method Collection Time Receive d Time (Source) Location / / Volume Laterality Blood 10/05/2021 8:39 AM 8:52 EDT AM EDT Resulting Agency Comment Spec In Lab Donell Hernandez MD CHEMISTRY ORDERABLES Performing Organization Address City/State/ZIP Code Phon e Number [facility] [place] [phone] Copper, serum (10/05/2021 8:39 AM EDT) athologist Signature Copper 1.24 0.75 - 1.45 [place]IA [place] mcg/mL [facility] LAB[facility] Comment: ADDITIONAL INFORMATIO N This test was developed and its performa nce characteristics determined by [facility] in a manner co nsistent with CLIA requirements. This test has not been carlos ared or approved by the U.S. Food and Drug Administration. Test Performed by: [facility] [address] [place] [address] [address] Hand: Van White M.D. Ph. D.; CLIA# [id number] Specimen Anatomical Collection Method Collection Time Receive d Time (Source) Location / / Volume Laterality Blood 10/05/2021 8:39 AM 2 EDT 10:42 AM EDT Resulting Agency Comment Spec In Lab Nicky Baez MD CHEMISTRY ORDERABLES Performing Organization Address City/[facility]/ZIP Code Phon e Number [address] (ABNORMAL) Protein Electrophoresis, serum (10/05/2021 8:39 AM EDT) Patholo gist Method Time Signature Total Prot 6.8 6.1 - 8.0 SYLVIA Elec g/dL [facility] LABORATORY Albumin Elect 3.76 3.60 - 6.00 SY[place] g/dL [facility] LABORATORY Alpha1-Globul 0.20 0.10 - 0.30 SY[place] in g/dL [facility] LABORATORY Alpha2-Globul 0.72 0.40 - 0.90 SY[place]IA in g/dL [facility] LABOR[facility]ORY Beta Globulin 0.61 0.50 - 1.00 SY[place]IA g/dL [facility] LAB[facility] Gamma 1.60 (H) 0.50 - 1.30 SY[place]IA Globulin g/dL [facility] LABORATORY M1 Band None None [place] Detected Detected [facility] LABORATORY Specimen Anatomical Collection Method Collection Time Receive d Time (Source) Location / / Volume Laterality Blood 10/05/2021 8:39 AM 2 8:52 EDT AM EDT Narrative This result has an attachment that is no t available. Resulting Agency Comment Spec In Lab Nicky Baez MD CHEMISTRY ORDERABLES Performing Organization Address City/[facility]/[place] [address] Direct antiglobulin test (10/05/2021 8:39 AM EDT) P athologist Signature GUILHERME Negative [facility] LABOR[facility]ORY Specimen Anatomical Collection Method Collection Time Receive d Time (Source) Location / / Volume Laterality Blood 10/05/2021 8:39 AM 2 8:44 EDT AM EDT Resulting Agency Comment Spec In Lab Nicky Baez MD BLOOD BANK ORDERABLES Performing Organization Address [place]/[facility]/ZIP [facility] [place] Number [address] Lactate Dehydrogenase (10/05/2021 8:39 AM EDT) P athologist Signature LDH 134 110 - 220 [facility] unit/L [facility] LAB[facility]ORY Specimen Anatomical Collection Method Collection Time Receive d Time (Source) Location / / Volume Laterality Blood 10/05/2021 8:39 AM 2 8:52 EDT AM EDT Resulting Agency Comment Spec In Lab Nicky Baez MD CHEMISTRY ORDERABLES Performing Organization Address City/[facility] [place] [address] (ABNORMAL) Reticulocyte Count (10/05/2021 8:39 AM EDT) Patholo gist Method Time Signature Retic Ct % 2.6 0.7 - 2.6 [facility] % [facility] Retic Ct Abs 0.070 0.030 - [facility] 0.120 [facility] x10(6)/[facility] L LABORATORY Immature Retic% 17.2 (H) 0.0 - [facility] 15.6 % [facility] LAB[facility] Reticulated Hgb 24.5 (L) 31.3 - [facility] 40.[address] [facility] LAB[facility]ORY Specimen Anatomical Collection Method Collection Time Receive d Time (Source) Location / / Volume Laterality Blood 10/05/2021 8:39 AM 2 8:52 EDT AM EDT Resulting Agency Comment Spec In Lab Nicky Baez MD HEMATOLOGY ORDERABLES Performing Organization Address City/[facility] Phon e Number [address] TSH (10/05/2021 8:39 AM EDT) P athologist Signature TSH 3.91 0.27 - 4.20 SYLVIA GARRISON mcIU/mL [facility] Comment: Reference Interval (mcIU/mL): Females: ??First Trimester: 0.23-3.88 ??Second Trimester: 0.22-3.90 ??Third Trimester: 0.44-4.66 Specimen Anatomical Collection Method Collection Time Receive d Time (Source) Location / / Volume Laterality Blood 10/05/2021 8:39 AM 2 8:52 EDT AM EDT Resulting Agency Comment Spec In Lab Nicky Baez MD CHEMISTRY ORDERABLES Performing Organization Address City/[facility]/ZIP Code Phon e Number [address] Folate, serum (10/05/2021 8:39 AM EDT) athologist Signature Folate Lvl >20.0 4.8 - 24.2 [facility] ng/mL [facility] Specimen Anatomical Collection Method Collection Time Receive d Time (Source) Location / / Volume Laterality Blood 10/05/2021 8:39 AM 2 8:52 EDT AM EDT Resulting Agency Comment Spec In Lab Nicky Baez MD CHEMISTRY ORDERABLES Performing Organization Address City/[facility]/ZIP Code Phon e Number [address] Vitamin B12 (10/05/2021 8:39 AM EDT) athologist Signature Vitamin B-12 1,177 232 - 1,245 [facility] pg/mL [facility] Specimen Anatomical Collection Method Collection Time Receive d Time (Source) Location / / Volume Laterality Blood 10/05/2021 8:39 AM 2 8:52 EDT AM EDT Resulting Agency Comment Spec In Lab Nicky Baez MD CHEMISTRY ORDERABLES Performing Organization Address City/[facility]/ZIP Code Phon e Number [address] Ferritin (10/05/2021 8:39 AM EDT) athologist Signature Ferritin 71 30 - 400 [facility] ng/mL [facility] Comment: Pediatric reference ranges not verified at [facility], interpret with caution. Reference ranges for females greater tristan n 50 years of age approach values for men, i.e., 30-400 ng/mL. Specimen Anatomical Collection Method Collection Time Receive d Time (Source) Location / / Volume Laterality Blood 10/05/2021 8:39 AM 8:52 EDT AM EDT Resulting Agency Comment Spec In Lab Nicky Baez MD CHEMISTRY ORDERABLES Performing Organization Address City/[facility]/ZIP [facility] [place] [address] (ABNORMAL) Iron and TIBC (10/05/2021 8:39 AM EDT) Analysis Performed At Patho logist Time Signature Iron 37 (L) 45 - 160 [facility] mcg/dL [facility] TIBC 190 (L) 250 - 450 [facility] mcg/dL [facility] Iron Saturation 19 (L) 20 - 50 % [facility] Specimen Anatomical Collection Method Collection Time Receive d Time (Source) Location / / Volume Laterality Blood 10/05/2021 8:39 AM 8:52 EDT AM EDT Resulting Agency Comment Spec In Lab Nicky Baez MD CHEMISTRY ORDERABLES Performing Organization Address City/[facility]/ZIP [place] [address] (ABNORMAL) Comprehensive metabolic panel (non-fasting) (10/05/2021 8:39 AM EDT) P athologist Signature Glucose Lvl 118 65 - 199 [facility] mg/dL [facility] Comment: Diabetes: >=200 mg/dL plus symp toms BUN 44 (H) 10 - 20 mg/dL [facility] Creatinine 3.50 (H) 0.80 - 1.50 mg/dL [facility] Sodium 138 135 - 145 mmol/L [facility] Potassium 5.2 (H) 3.5 - 5.0 mmol/L [facility] Comment: Please note: ??Patients with WBC >100,00 0 may have falsely elevated Potassium levels. ??For accurate Potassium quantif ication in these patients send serum separator tube (gold top) for subsequent determinations. ??Contact the Clinical Chemistry Laboratory if there are any qu estions. Chloride 111 (H) 98 - 107 mmol/L [facility] CO2 19 (L) 22 - 31 mmol/L [facility] Anion Gap 8 5 - 15 mmol/L [facility] Calcium 9.0 8.5 - 10.5 mg/dL [facility] Total Protein 7.1 6.1 - 8.0 g/dL [facility] Albumin 3.5 3.2 - 5.2 g/dL [facility] AST 10 0 - 39 unit/L [facility] ALT 8 0 - 55 unit/L [facility] Alk Phos 108 40 - 130 unit/L [facility] Total Bilirubin 0.3 0.2 - 1.3 mg/dL [facility] Estimated GFR 17 (L) >=60 mL/min/1.73 m?? [facility] Comment: This patient? s estimated glomerular filtration rate (eGFR) is between 17 mL/min/1.73 m2 (patients with less muscl e mass per kg body weight) and 20 mL/min/1.73 m2 (patients with more muscl e mass per kg body weight) as determined by the CKD-EPI equation. Asse ssment of eGFR is not appropriate when creatinine concentrations are rapidly ch anging. For clinical decisions where creatinine clearance will affect therapy , a 24-hour urine creatinine clearance may be advised. Assignment of CKD stage 1 - 5 for patien ts with an eGFR near the transition point between stages may be based on cli nical assessment of muscle mass and symptoms in addition to eGFR. Specimen Anatomical Collection Method Collection Time Receive d Time (Source) Location / / Volume Laterality Blood 10/05/2021 8:39 AM 8:52 EDT AM EDT Resulting Agency Comment Spec In Lab Nicky Baez MD CHEMISTRY ORDERABLES Performing Organization Address City/State/[place] [address] (ABNORMAL) Urinalysis Microscopic Exam (10/05/2021 5:20 AM EDT) Analysis Performed At Patho logist Time Signature RBC UA 5 (H) 0 - 3 /HPF [facility] WBC UA 1 0 - 3 /HPF [facility] Bacteria UA Many (A) None /HPF [facility] Squam Epith UA 1 <=4 /HPF [facility] Specimen Anatomical Collection Method Collection Time Receive d Time (Source) Location / / Volume Laterality Clean Catch 10/05/2021 5:20 AM 2 8:56 Urine EDT AM EDT Resulting Agency Comment Spec In Lab Alejo Garnett MD URINE ORDERABLES Performing Organization Address City/[facility]/ZIP [place] [address] (ABNORMAL) Protein/Creatinine Ratio, urine (10/05/2021 5:20 AM EDT) Analysis Performed At Path logist Time Signature U Creatinine 69 mg/dL [facility] U Protein Ran 104 (H) 0 - 12 [facility] mg/dL [facility] Prot/Cre Ratio 1.5 ratio [facility] Specimen Anatomical Collection Method Collection Time Receive d Time (Source) Location / / Volume Laterality Urine 10/05/2021 5:20 AM 2 8:55 EDT AM EDT Resulting Agency Comment Spec In Lab Alejo Garnett MD URINE ORDERABLES Performing Organization Address City/[facility]/ZIP [place] [address] (ABNORMAL) Urinalysis with reflex Culture (10/05/2021 5:20 AM EDT) Patholo gist Method Time Signature Glucose UA Negative Negative [facility] Protein UA 100 (A) Negative [facility] mg/dL [facility] Bilirubin UA Negative Negative [facility] mg/dL [facility] Comment: Clinical correlation required for positi ve Urine Bilirubin results as false positive may occur with some drugs and d rug related products. If a false positive is suspected a serum total bili reyna should be considered if clinically indicated. Urobilinogen UA Normal Normal mg/dL [facility] pH UA 6.0 5.0 - 8.0 [facility] Blood UA Negative Negative mg/dL [facility] Ketones UA Negative Negative mg/dL [facility] Nitrite UA Negative Negative [facility] Leukocytes UA Negative Negative [facility] LABORATORY Appearance UA Clear Clear [facility] Spec [place] UA 1.014 1.005 - 1.030 [facility] Color UA Yellow Yellow [facility] Culture Reflexed No [facility] Specimen Anatomical Collection Method Collection Time Receive d Time (Source) Location / / Volume Laterality Clean Catch 10/05/2021 5:20 AM 8:56 Urine EDT AM EDT Resulting Agency Comment Spec In Lab Alejo Garnett MD URINE ORDERABLES Performing Organization Address City/State/ZIP Code Phon e Number [place] [phone] documented in this encounter Visit Diagnoses Diagnosis CKD (chronic kidney disease) stage 4, GF R 15-29 ml/min Chronic kidney disease, Stage IV (severe ) Anemia of chronic renal failure, stage 4 (severe) H/O kidney transplant Kidney replaced by transplant Tiredness Other malaise and fatigue Abnormal red blood cells Other abnormality of red blood cells Renal failure, unspecified chronicity Type 2 diabetes mellitus with hyperglyce maki, with long-term current use of insulin Other complication of kidney transplant 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
--- OUTSIDE RECORDS SUMMARY | 2022-05-24 10:48 | XMS_ITS | Encounter Summary ---
:1955 Author Organization [facility] Address [facility] [place] [address] Care Team Providers Name Role Phone Violetta Sanford MD Primary Care Provider Reason for Visit Reason Comments Medication Refill Encounter Details Date Type Department Care Team Description 09/13/2021 Refill Solid Organ Transplant Alejo Garnett Transplanted kidney; at [facility] MD Thang Other complication of kidney transplant; [facility] Pro phylactic [place] [address] TRANSPLANT SURGERY [phone] [place], [place] [address] (Wo rk) Social History Tobacco [...] Otolaryngology Ricardo Panda PA [facility] [address] [place], [place] [address] (Wo rk) 06/02/2022 Infusion Hematology and Oncology 06/16/2022 Infusion Hematology and Oncology 06/21/2022 Office Visit Neurology Tyler Rojas MD [facility] er Neurology [place], [place] [phone] (Wo rk) 06/30/2022 Infusion Hematology and Oncology 07/14/2022 Infusion Hematology and Oncology 07/28/2022 Infusion Hematology and Oncology 08/11/2022 Infusion Hematology and Oncology 11/04/2022 Office Visit Rheumatology Dante Freedman PA [facility] RHEUMATOLOGY [place], [place] [address] (Wo rk) documented as of this encounter Visit Diagnoses Diagnosis Transplanted kidney Kidney replaced by transplant Other complication of kidney transplant Prophylactic immunotherapy Need for prophylactic immunotherapy documented in this encounter Care Teams Hotel Staff Member Relationship Specialty Start Date End Date Violetta Sanford MD PCP - General 04/02/14 [address] [place] [address] documented as of this encounter
--- OUTSIDE RECORDS SUMMARY | 2022-05-24 10:48 | XMS_ITS | Encounter Summary ---
:1955 Author Organization [facility] [place] [address] Care Team Providers Name Role Phone Violetta Sanford MD Primary Care Provider Encounter Details Date Type Department Care Team Description 10/26/2021 Office Visit Audiology at [facility] Mindy Moody, Asymmetrical sensorineural h earing loss; [facility] AUD Tinnitus, bilateral Drive [place], [place] CENTER [address] AUDIOLOGY DEPT [phone] [place], [place] [address] Social History Tobacco Use Types [...] encounter Progress Notes Mindy Moody, AUD - 10/26/2021 1:00 PM [place] [address] Leroy Torres was seen today for an audiologic evaluation in conjunction with Dr. Scott. Please refer to audiogram under procedures for details on history, results and recommendations. Lien Ferris [place] [address] ; documented in this encounter Plan of Treatment Upcoming Encounters Date Type Specialty Care Team Description 05/26/2022 Office Visit Otolaryngology Ricardo Panda PA [facility] [address] [place] [address] (Wo rk) 06/02/2022 Infusion Hematology and Oncology 06/16/2022 Infusion Hematology and Oncology 06/21/2022 Office Visit Neurology Tyler Rojas MD [facility] Neurology [place], [place] [phone] (Wo rk) 06/30/2022 Infusion Hematology and Oncology 07/14/2022 Infusion Hematology and Oncology 07/28/2022 Infusion Hematology and Oncology 08/11/2022 Infusion Hematology and Oncology 11/04/2022 Office Visit Rheumatology Dante Freedman PA [facility] [place]HEUMATOLOGY [place] [address] (Wo rk) documented as of this encounter Procedures Procedure Name Priority Date/Time Associated Comments Diagnosis COMPREHENSIVE HEARING Routine 10/26/2021 1:03 PM Results for this TEST EDT procedure are i n the results section. documented in this encounter Results Comprehensive hearing test (10/26/2021 1:03 PM EDT) Specimen (Source) Anatomical Collection Method Collection Time Re ceived Time Location / / Volume Laterality 10/26/2021 1:03 PM EDT Narrative [facility] - 10/26/2021 1:03 PM EDT Follow-up with Dr. Scott and for hearing aid check as scheduled Procedure Note Unknown - 10/26/2021Formatting of this n ote might be different from the original. Follow-up with Dr. Scott and for hearing aid check as scheduled Mindy Nowak [facility]na [facility] ORDERABLE S Performing Organization Address City/State/ZIP Code Phon e Number [facility] documented in this encounter Visit Diagnoses Diagnosis Asymmetrical sensorineural hearing loss Sensorineural hearing loss, asymmetrical Tinnitus, bilateral Unspecified tinnitus documented in this encounter Care Teams Ground Mixer Relationship Specialty Start Date End Date Violetta Sanford MD PCP - General 04/02/14 [address] [place] [address] documented as of this encounter
--- OUTSIDE RECORDS SUMMARY | 2022-05-24 10:48 | XMS_ITS | Encounter Summary ---
:1955 Author Organization [facility] [place] [address] Care Team Providers Name Role Phone Violetta Sanford MD Primary Care Provider Encounter Details Date Type Department Care Team Description 08/19/2021 Telephone Solid Organ Transplant at Taj Garrison APRN [facility] Giovana tyler [place] [address] [place] [address] [phone] (Wo rk) Social History Tobacco Use Types [...] this encounter Miscellaneous Notes Telephone Encounter - Taj Lloyd APRN - 08/19/2021 4:27 PM EST TC to patient to discuss the following: Received call from lab at [facility] in [facility] for critical results of Cr 4.2 and Calcium of 12.1. Discussed with Dr. Garnett - the patient has a failing graft. The rising creatinine is known. For the Calcium of 12.1 - patient needs to stop Calcitriol. Also stop any Tums or other Calcium supplements. I received patient's VM. I left a message telling him to stop Calcitriol and any other Calcium supplements,. I asked for a return call to confirm these instructions. documented in this encounter Plan of Treatment Upcoming Encounters Date Type Specialty Care Team Description 05/26/2022 Office Visit Otolaryngology Ricardo Panda PA [facility] [address] [place], [place] [address] (Wo rk) 06/02/2022 Infusion Hematology and Oncology 06/16/2022 Infusion Hematology and Oncology 06/21/2022 Office Visit Neurology Tyler Rojas MD [facility] Neurology [place], [place] [phone] (Wo rk) 06/30/2022 Infusion Hematology and Oncology 07/14/2022 Infusion Hematology and Oncology 07/28/2022 Infusion Hematology and Oncology 08/11/2022 Infusion Hematology and Oncology 11/04/2022 Office Visit Rheumatology Dante Freedman PA [facility] RHEUMATOLOGY [place] [address] (Wo rk) documented as of this encounter Visit Diagnoses Not on filedocumented in this encounter Care Teams Imager Relationship Specialty Start Date End Date Violetta Sanford MD PCP - General 04/02/14 [address] [place] [address] documented as of this encounter
--- OUTSIDE RECORDS SUMMARY | 2022-05-24 10:48 | XMS_ITS | Encounter Summary ---
:1955 Author Organization [facility] [place] [address] Care Team Providers Name Role Phone Violetta Sanford MD Primary Care Provider Reason for Referral Diagnostic Test (Routine) - Closed Specialty Diagnoses / Procedures Referred By Contact Refer red To Contact Radiology Diagnoses Anemia, unspecified type Margaret Purvis APRN [facility] Rad Ct Scan Procedures CT Guided Biopsy Bone Marrow [facility] HEMATOLOGY/[place] [address] [place] [address] Referral ID Status Reason Start Date Expiration Date Visits V isits Requested Authorized [id number] Closed Specialty 09/30/2021 04/02/2023 1 1 Service Requested Reason for Visit Diagnostic Test (Routine) - Closed Specialty Diagnoses / Procedures Referred By Contact Refer red To Contact Radiology Diagnoses Anemia, unspecified type Margaret Purvis APRN [facility] Rad Ct Scan Procedures CT Guided Biopsy Bone Marrow [facility] HEMATOLOGY/[place] [address] [place] [address] Referral ID Status Reason Start Date Expiration Date Visits V isits Requested Authorized [id number] Closed Specialty 09/30/2021 04/02/2023 1 1 Service Requested Encounter Details Date Type Department Care Team Description 10/22/[address] Scan at [facility] Margaret Purvis Renal tubular acidosis; [facility] M, SHIFT SUPERVISOR Renal osteodystrophy; [facility] Anemia, unspecified type [place], [place] CENTER [address] HEMATOLOGY/ONCOL [phone] [place] [address] Social History Tobacco Use Types Packs/Day Years [...] Reading Time Taken Comments Blood Pressure 151/53 10/22/2021 3:45 PM EDT Pulse 70 10/22/2021 3:20 PM EDT Temperature 36.9 ??C (98.4 ??F) 10/22/2021 2:00 PM EDT Respiratory Rate 16 10/22/2021 3:20 PM EDT Oxygen Saturation 97% 10/22/2021 3:45 PM EDT Inhaled Oxygen Concentration - - Weight - - Height - - Body Mass Index - - documented in this encounter Discharge Instructions Discharge InstructionsAngel Bragg RN - 10/22/2021 2:46 PM EDT [facility] Vascular and Interventional Radiology Biopsy Discharge Instructions Bone biopsy: call your doctor immediately if you develop a sudden onset of weakness, increased pain or swelling at the biopsy site or heavy bleeding at the biopsy site. Activity And Diet: Go home and rest quietly for the remainder of the day. You may resume your normal activities tomorrow. Resume your usual diet after the procedure. Do not drive, sign any important/legal documents, or make any important decisions for 24 hours following sedation medications. When to call your healthcare provider: If you see any redness, swelling or drainage at the biopsy site. If you develop chills. If you have a fever greater than or equal to 101 degrees Fahrenheit. If you develop pain around the biopsy site. Bandage: Check the dressing/bandaid throughout the day for an increase in drainage. Keep the biopsy site dry for 24 hours. Replace the bandaid as needed. You may shower 24 hours after the biopsy. Medication: DO NOT take aspirin-containing products, ibuprofen, or blood-thinning medication for the next 24 hours unless your clinician says you may do so. Generally you may use acetaminophen as needed for discomfort unless you have liver disease and are instructed not to take acetaminophen. Biopsy Results The results of your biopsy should be available within 5 business days and will be reported to you byyour primary weekend caregiver or the clinician who ordered the biopsy. Please do not call us for results as we will not have them. If you have not been contacted by your clinician within 5 business days you should call that officefor further information. When to call the Interventional Radiology Department: Please call with any questions or concerns. Ifit is during regular office hours, please call [phone]. If it is after regular office hours, oron weekends or holidays, please call [phone] and ask to speak to the Buyer Renter on callfor Interventional Radiology. You have received medication during your procedure to help lessen anxiety and keep you comfortable.These medications affect judgement and reaction time. We recommend that you do not drive, operate equipment, sign any important documents, or smoke unattended for 24 hours following your procedure. Because of the sedation, be careful on stairs, as you may be unsteady on your feet. You may resume your regular diet as tolerated. IV site -- slight redness, or tenderness is normal, you can use a warm compress. If tenderness and redness increases or foul drainage occurs, please contact your M. D. Revised 05/10/19 documented in this encounter Medications at Time of Discharge Medication Sig Dispensed Refills Start Date End Date ipratropium-albuteroL Inhale into the lungs. 0 (Duoneb) 0.5 mg-3 mg(2.5 mg base)/3 mL Solution for Nebulization montelukast Take 10 mg by mouth 0 10/14/2021 (Singulair) 10 mg daily. Tablet FreeStyle Gilberto 2 1 each by 6 kit 3 08/07/2021 Sensor Kit [facility]Non-Drug; Combo Route) route every 14 days. Use to continuously monitor blood glucose. Scan at least 4 times per day. FreeStyle Gilberto 2 Use to continuously 1 each 0 2 [place] Mis monitor blood glucose. Scan at least 5 [...] 6 kit 3 01/13/2021 Day Sensor Kit [facility].(Non-Drug; Combo Route) route every 14 days. Use to continuously monitor blood glucose. Scan at least 5 times per day. DX: E11.65 darbepoetin cristy in Inject 300 mg as 0 polysorbat 10 mcg/0.4 directed as needed. mL Syringe cyanocobalamin, Take 100 mcg by mouth 0 Vitamin B-12, daily. (Vitamin B-12) 100 mcg Tablet Blood-Glucose Sensor by [facility].(Non-Drug; 0 (Dexcom G6 Sensor) Combo Route) route. Device Sensor, signal technician andtransmitter metoprolol succinate Take 1 tablet by mouth 90 tablet 1 04/2020 XL (Toprol-XL) 50 mg daily. Tablet Sustained Release 24 hr amLODIPine (Norvasc) Take 0.5 tablets by 90 tablet 3 2019 10 mg Tablet mouth daily. fluticasone INSTILL 2 SPRAYS INTO 0 09/06/2019 propionate (FLONASE) EACH NOSTRIL ONCE A 50 mcg/actuation DAY NEEDED [place], Suspension multivitamin with Take 1 tablet by [...] for hours as needed for Nebulization Wheezing. CellCept 250 mg TAKE 2 CAPSULES BY [...] 022 01/07/2022 mg Tablet MOUTH EVERY DAY primidone (MYSOLINE) Take 1 tablet by mouth 120 tablet 3 09/201810/26/2021 50 mg Tablet 4 times daily. Start 1/2 tablet at night and increase as directed cholecalciferol, Take 1 tablet by mouth 90 tablet 3 018 03/17/2022 Vitamin D3, 2,000 daily. unit TabletIndications: Vitamin D deficiency documented as of this encounter Progress Notes Angel Bragg RN - 10/22/2021 11:59 PM EDT Interventional and Vascular Radiology Post-Procedure Call Name: Leroy Dailey Age: 66 y.o. Sex: Male Date of : 1955 Telephone Number: [phone] (home) Telephone Information: PCP Violetta Sanford MD [phone] Date/Time of call: October 23, 2021/9:12 AM Procedure: Bone Biopsy Procedural Provider: Dr. Suki Lo Contact with patient or if not, with whom? no Message left on answering machine? [X] Yes Comments (if applicable): Angel Bragg RN - 10/22/2021 2:30 PM EDT [facility] NURSING DATABASE Name: LEROY DAILEY Date of : 1955 AGE: 66 y.o. Address: [address] [place] [address] Phone: [phone] (home) Mobile: Telephone Information: Referring Provider: Margaret Purvis REASON FOR VISIT: Order Questions Answers Where will study be performed? [facility] Radiology [120] Laterality Radiologist's Discretion Is the patient on anticoagulant / antiplatelet therapy ? Aspirin Is this biopsy due to suspicion for disease progression No Does the patient have any pertinent outside imaging? 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 No No data recorded Allergies Allergen Reactions ??? Penicillins Anaphylaxis ??? Iftikhar Inhibitors Cough ??? Clindamycin Hcl Rash ??? Allergenic Extracts Birch and Nut Trees, cats, dust, pollen bird feathers ??? Ibuprofen ??? Sulfamethoxazole-Trimethoprim Pertinent PMH: Patient Active Problem List Diagnosis Code ??? [...] COPD (chronic obstructive pulmonary disease) J44.9 ??? [facility] current use of immunosuppressive drug Z79.899 ??? 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 Essential hypertension I10 Date/Procedure Meds Given/Comments 10/22/2021 Bone Biopsy Fentanyl 100mcg IV Midazolam 2mg IV 1431 to procedure room CT5 via stretcher. Onto table prone. All monitors, O2, safety strap in place.Meds per protocol. .Laboratory Results: Lab Results Component Value Date INR 1.4 (H) 06/16/2013 Lab Results Component Value Date CREATININE 3.50 (H) 10/05/2021 Lab Results Component Value Date K 5.2 (H) 10/05/2021 Lab Results Component Value Date PLATELET 178 10/05/2021 documented in this encounter H&P Notes Linwood Verdugo DO - 10/22/2021 2:16 PM EDT INTERVENTIONAL RADIOLOGY FOCUSED H&P: Procedure: Left Ilium Bone Marrow Biopsy. The patient's history and physical exam have been reviewed and completed. There has been no intervalchange from that of the pre-operative history and physical exam done within the last 30 days. Physical Exam: Cardiovascular: Regular, Normal Pulmonary: Breath sounds clear to auscultation Abdomen: Protuberant The planned procedure (and sedation plan if appropriate) , its benefits and risks, and alternatives were discussed with the patient. The patient consented to the procedure. PRE-SEDATION ASSESSMENT: Sedation Plan: moderate (conscious sedation) ASA: 3: Patient with severe systemic disease Mallampati: II: tonsillar pillars are blocked by the tongue Confirm NPO status: Yes History of anesthetic complications: No Current medications reviewed: Yes Allergies reviewed: Yes Alcohol/drug use: NA Source Note - Richar Lo MD - 10/01/2021 1:13 PM EST Summary: CT-guided bone marrow biopsy MUSCULOSKELETAL RADIOLOGY PRE-PROCEDURE NOTE Name: Leroy Dailey Date of : 1955 Age: 66 y.o. 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 Planned Procedure: CT-guided bone marrow biopsy Chief Complaint/Diagnosis: as above Pertinent Past Medical/Surgical History: as above Patient Active Problem List Diagnosis Code ??? [...] COPD (chronic obstructive pulmonary disease) J44.9 ??? [facility] current use of immunosuppressive drug Z79.899 ??? 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 Essential hypertension I10 Allergies Allergen Reactions ??? Penicillins Anaphylaxis ??? Iftikhar Inhibitors Cough ??? Clindamycin Hcl Rash ??? Allergenic Extracts Birch and Nut Trees, cats, dust, pollen bird feathers ??? Ibuprofen ??? Sulfamethoxazole-Trimethoprim Current Outpatient Medications on File Prior to Visit Medication Sig Dispense Refill ??? CellCept 250 mg Capsule TAKE 2 [...] 2 Sensor Kit 1 each by [facility].(Non-Drug; Combo Route) route every 14 days. Use to continuously monitor blood glucose. Scan at least 4 times per day. 6 kit 3 ??? FreeStyle Gilberto 2 [place] [facility] Use to continuously monitor blood glucose. Scan [...] Day Sensor Kit 1 each by [facility].(Non-Drug; Combo Route) route every 14 days. Use to continuously monitor blood glucose. Scan at least 5 times per day. DX: E11.65 6 kit 3 ??? Gvoke PFS 1-Pack Syringe 1 mg/0.2 mL Syringe Inject 1 each subcutaneously as needed (as needed for severe hypoglycemia). Repeat with new unit if no response after 15 minutes. (Patient not taking: Reported on 09/30/2021) 2 Syringe 11 ??? darbepoetin cristy in polysorbat 10 mcg/0.4 mL Syringe Inject 300 mg as directed as needed. ??? cyanocobalamin, Vitamin B-12, (Vitamin B-12) 100 mcg Tablet Take 100 mcg by mouth daily. ??? Blood-Glucose Sensor (Dexcom G6 Sensor) Device by [facility].(Non-Drug; Combo Route) route. Sensor, signal technician andtransmitter ??? metoprolol succinate XL (Toprol-XL) 50 mg Tablet Sustained Release 24 hr Take 1 tablet by mouth daily. 90 tablet 1 ??? amLODIPine (Norvasc) 10 mg Tablet Take 0.5 tablets by mouth daily. 90 tablet 3 ??? fluticasone propionate (FLONASE) 50 mcg/actuation [place], Suspension INSTILL 2 SPRAYS INTO EACH NOSTRIL ONCE A DAY NEEDED ??? albuterol (PROVENTIL) 2.5 mg /3 mL (0.083 %) Solution for Nebulization Take 3 mLs by nebulization every 4 hours as needed for Wheezing. 90 mL 3 ??? multivitamin with minerals Tablet Take 1 tablet by mouth Daily. ??? primidone (MYSOLINE) 50 mg Tablet Take 1 tablet by mouth 4 times daily. Start 1/2 tablet at night and increase as directed 120 tablet 3 ??? LEVEMIR FLEXTOUCH U-100 INSULN Insulin Pen [...] x 1/2 Needle 1 Device by [facility].(Non- Drug; Combo Route) route 3 times daily. [...] Reported on 08/06/2016 ??? Miscellaneous Medical Supply [facility] 4 Devices by [facility].(Non-Drug; Combo Route) route daily. Rubber sheath for leg prosthesis (2 pairs) 4 each PRN ??? BD INSULIN PEN NEEDLE UF ORIG 29 gauge x 1/2 Needle 0 ??? aspirin 81 mg EC tablet Take 81 mg by mouth daily. Current Facility-Administered Medications on File Prior to Visit Medication Dose Route Frequency Provider Last Rate Last Admin ??? [COMPLETED] darbepoetin cristy-polysorbate (Aranesp) (300 mcg/0.6 mL) injection 300 mcg 300 mcg Subcutaneous Once Nicky Baez MD 300 mcg at 09/30/21 1445 Pertinent ROS: as per HPI Pertinent Family History: non contributory BP: ()/() Labs: Lab Results Component Value Date/Time WBC 5.57 09/16/2021 12:00 AM ANC 3.19 09/16/2021 12:00 AM HCT 28.6 09/16/2021 12:00 AM PLATELET 159 09/16/2021 12:00 AM INR 1.4 (H) 06/16/2013 07:00 AM BUN 43 09/16/2021 12:00 AM CREATININE 4.1 09/16/2021 12:00 AM Imaging: left or right posterior ilium ASA: pending Assessment / Plan: Medications to stop: none Prophylactic antibiotic: none Planned positioning: prone Planned access site: left or right posterior ilium Image guidance plan: CT Sedation plan: moderate documented in this encounter Plan of Treatment Upcoming Encounters Date Type Specialty Care Team Description 05/26/2022 Office Visit Otolaryngology Ricardo Panda PA [facility] [place] [address] (Wo rk) 06/02/2022 Infusion Hematology and Oncology 06/16/2022 Infusion Hematology and Oncology 06/21/2022 Office Visit Neurology Tyler Rojas MD [facility] Neurology [place], [place] [phone] (Wo rk) 06/30/2022 Infusion Hematology and Oncology 07/14/2022 Infusion Hematology and Oncology 07/28/2022 Infusion Hematology and Oncology 08/11/2022 Infusion Hematology and Oncology 11/04/2022 Office Visit Rheumatology Dante Freedman PA [facility] RHEUMATOLOGY [place], [place] [address] (Wo rk) documented as of this encounter Procedures Procedure Name Priority Date/Time Associated Diagnosis Comme nts CT GUIDED BIOPSY Routine 10/22/2021 3:23 PM Anemia, unspecifie d Results for this BONE MARROW EDT type procedure are i n the results section. MYELOID SEQ PANEL Routine 10/22/2021 3:05 PM EDT CHROMO REPORT Routine 10/22/2021 3:05 PM Results for this ACQUIRED EDT procedure are i n the results section. BONE MARROW FINAL Routine 10/22/2021 3:05 PM Resu lts for this REPORT EDT procedure are i n the results section. IRON STAIN, BONE Routine 10/22/2021 3:05 PM Anemia, unspecifie d Results for this MARROW EDT type procedure are i n the results section. BONE MARROW PANEL Routine 10/22/2021 3:05 PM Anemia, unspecifi ed ([facility]/APD) EDT type POCT GLUCOSE Routine 10/22/2021 2:15 PM Results f or this EDT procedure are i n the results section. documented in this encounter Results CT Guided Biopsy Bone Marrow (10/22/2021 3:23 PM EDT) Anatomical Region Laterality Modality Computed Tomography Specimen (Source) Anatomical Location Collection Method / Collectio n Time Received Time / Laterality Volume Impressions 10/22/2021 4:08 PM EDT Technically successful CT-guided bone marrow biopsy of the left posterior ilium. Resident/Fellow: Kartik Attending: Richar Lo MD I, Dr. Richar Lo, was present for the ent lori procedure. I have personally reviewed the image(s) and the resident's interpretation and agree with the findings, Richar Lo MD at 10/22/2021 4:08 PM Thank you for letting us participate in the care of this patient. ??If you are a health care provider and have any questi ons regarding this report, please contact the number below. ??For patients who have questions please contact the health home health care case manager that requested your imaging first. ? Narrative 10/22/2021 4:08 PM EDT PROCEDURE: CT GUIDED left posterior ilium bone marrow biopsy OPERATORS: Teresita Verdugo INFORMED CONSENT: Informed consent was o btained and all of the patient's questions were answered prior to the sta rt of the procedure. MODERATE SEDATION: Was provided by the Special Procedures n urse using 2 mg of midazolam and 100 mcg of Fentanyl intravenously. Continuous vi lee sign monitoring was performed. DESCRIPTION: After informed consent was obtained, a p re- procedural time-out was performed as per [facility] protocol. The patient was place d in the CT Suite in the prone position. The left posterior ilium was localized o n axial CT images. The needle entry site was marked under CT guidance. The skin w as prepped and draped in the usual sterile fashion. 1% buffered Lidocaine w as used for local anesthesia. Maximum sterile barrier technique was utilized. The 11-gauge G iHandle bone marrow bio psy set was employed. The needle was advanced under imaging guidance. The tip of the biopsy needle was recorded. Trocar needle was removed and 2 separate vials of blood (with and without heparin) were aspirated. Using the drill , the bone marrow core specimen was obtained. All needles were removed and h emostasis obtained by manual compression. The samples were prepared f or surgical pathology. COMPLICATIONS: There were no immediate postprocedure co mplications. The patient left the fluoroscopic suite to the ambulatory Rec overy Room in stable condition. MEDICATIONS: Patient received split doses of intraven ous fentanyl and midazolam from the IR nurse while pulse, pressure, and oxygen saturation were continuously monitored. 2 mg of midazolam and 100 mcg of Fentany l intravenously I was present during the intra-service t viktor out as documented by the IR Nurse. Procedure Note Richar Lo MD - 10/22/2021Formatting o f this note might be different from the original. PROCEDURE: CT GUIDED left posterior iliu m bone marrow biopsy OPERATORS: Teresita Verdugo INFORMED CONSENT: Informed consent was o btained and all of the patient's questions were answered prior to the sta rt of the procedure. MODERATE SEDATION: Was provided by the Special Procedures n urse using 2 mg of midazolam and 100 mcg of Fentanyl intravenously. Continuous vi lee sign monitoring was performed. DESCRIPTION: After informed consent was obtained, a p re- procedural time-out was performed as per [facility] protocol. The patient was place d in the CT Suite in the prone position. The left posterior ilium was localized o n axial CT images. The needle entry site was marked under CT guidance. The skin w as prepped and draped in the usual sterile fashion. 1% buffered Lidocaine w as used for local anesthesia. Maximum sterile barrier technique was utilized. The 11-gauge G iHandle bone marrow bio psy set was employed. The needle was advanced under imaging guidance. The tip of the biopsy needle was recorded. Trocar needle was removed and 2 separate vials of blood (with and without heparin) were aspirated. Using the drill , the bone marrow core specimen was obtained. All needles were removed and h emostasis obtained by manual compression. The samples were prepared f or surgical pathology. COMPLICATIONS: There were no immediate postprocedure co mplications. The patient left the fluoroscopic suite to the ambulatory Rec overy Room in stable condition. MEDICATIONS: Patient received split doses of intraven ous fentanyl and midazolam from the IR nurse while pulse, pressure, and oxygen saturation were continuously monitored. 2 mg of midazolam and 100 mcg of Fentany l intravenously I was present during the intra-service t viktor out as documented by the IR Nurse. IMPRESSION Technically successful CT-guided bone ma rrow biopsy of the left posterior ilium. Resident/Fellow: Kartik Attending: Richar Lo MD I, Dr. Richar Lo, was present for the ent lori procedure. I have personally reviewed the image(s) and the resident's interpretation and agree with the findings, Richar Lo MD at 10/22/2021 4:08 PM Thank you for letting us participate in the care of this patient. If you are a health care provider and have any questi ons regarding this report, please contact the number below. For patients w ho have questions please contact the health home health care case manager that requested your imaging first. Margaret Purvis SHIFT SUPERVISOR IMG CT ORDERABLES chromo report acquired (10/22/2021 3:05 PM EDT) Component Value Ref Test Analysis Performed At [facility] gist Range Method Time Signature Cytogenetics Final Report JERE Acquired Report MELI JAYANT RIAL ? [id number] HOSPITAL LABORATORY Specimen Type: Bone Marrow Specimen Condition: ~3.0mls, adequate. Collection Date/Time: 10/22/2021 15:05 Received Date/Time: 10/23/2021 14:04 Indication: ??Anemia ---Results--- Please see the chromosome an alysis scanned report in eD-H corresponding to this bone marrow specimen. This report was completed by [facility] and is located in 'Chart Rev iew' under the 'Media' tab. The document name is titled External Genetic S maria alejandra. ---Karyotype--- see comments ---Preparation--- Culture Type: 24 and 48 hour short term cultures(OTHER) FISH Method: ??N/A ---Comments--- The specimen was referred to [facility] ([place], [place], Tel: ) for cytogenetic be lysis. 11.10.21 (Electronic Signature) Verified By: Gerson Ph.D., [facility] A Clinical Cut Pressman/Process Safety Management Engineer Specimen Anatomical Collection Method Collection Time Receive d Time (Source) Location / / Volume Laterality 10/22/2021 3:05 PM 2 2:04 EDT PM EDT Margaretangélica Purvis SHIFT SUPERVISOR HEMATOLOGY ORDERABLES Performing Organization Address City/State/ZIP Code Phon [place] [address] Bone Marrow Final Report (10/22/2021 3:05 PM EDT) Component Value Ref Test Analysis Performed At [facility] gist Range Method Time Signature Bone Marrow [id number] ? Location: [facility] Final Report MELI The signing pathologist has (i) examined the relevant preparation(s) for the [facility] specimen(s) and (ii) rendered or confirmed the diagnosis(es) . HOSPITAL LABORATORY . ? Bone Marrow Final DIAGNOSIS BONE MARROW (PERIPHERAL SMEAR, ASPIRATE SMEAR, TOUCH PREP, C ORE BIOPSY): ?? 1. ??Normocellular marro w (50%) showing complete multilineage ?? hematopoiesis, ??with ?mild erythroid hypopla zulma and a mild increase in polytypic plasma cell (see ?discussion) ?? 2. ??Iron stores are present per iron stain ?? 3. ??Peripheral smear with borderline macrocytic anemia ?? 4. ??Pending genetic studies Electronically signed by: ?Koby Oro MD Verified: ??10/23/2021 17:30 ??Hematopathologist Performed at: ??-[facility] Dept. of Pathology, [place], [place] DISCUSSION No morphologic evidence of significant d yspoiesis or other primary disorder of hematopoiesis is observed. PERIPHERAL SMEAR WBC 6.0K/uL, RBC 2.8M/uL, HGB 8.2g/dL, MCV 98.2fL, RDW 14.3% , PLT 169K/uL There is a moderate hypochro tiffany borderline-macrocytic anemia. Anisopoikilocytosis and polychromasia are not i ncreased. The neutrophils are mostly mature and without significant left-shift. Rem aining leukocyte morphology is generally unremarkable. The platelet counts and morphology are normal. BONE MARROW ASPIRATE Adequacy: ?Smear/touch preparations adequate, cellula r. G:E ratio: ? 5.3:1 Erythroid: ? Complete maturation, no left-shift, relativ e hypoplasia. Granulocyte: ?? Complete normal maturation, no left-shift. Megakaryocyte: Normal in number and morphology. Lymphocyte: ?Scattered mature forms seen, no aggregates appreciated. Other: ? Normal pl asma cells, eosinophils, basophils, and mast cells. Iron stain: ?Iron stores present, no ring sideroblasts. DIFFERENTIAL Band/Seg 44%; Lymph 7%; Trigg 0%; Eos 9%; Baso 0%; Metamyelocyte 4%; Myelocyte 8%; Promyelocyte 5%; Blast 3%; nRBC's 14%; Plasma cell 6% BONE MARROW BIOPSY and/or CLOT Adequacy: ? Decalcified, a dequate, evaluable marrow present. Cellularity: ?? Normocellular, 50%. Erythroid: ? Precursors numerically decreased. Granulocyte: ?? Precursors numerically normal. Megakaryocyte: Normal in number and appearance, no clusterin g seen. Lymphocytes: ?? No abnormal aggregates identified. Other: ? Normal pl asma cells, eosinophils, basophils, and mast cells. Bone: ?Trabecular bone normal for age. IMMUNOHISTOCHEMISTRY STUDIES . BONE MARROW BIOPSY and/or CLOT Block: ?A1 (Core biopsy) Fixative: ?? Formalin ANTIBODY: ?? RESULT/COMMENT CD138 ? Scattered plasma cells represent 5-10% of alphonso lularity [place] ? Polytypic plasma cell staining Lambda ?Polytypic plasma cell staining Note: The immunoperoxidase s tains reported above were developed and their performance characteristics determined by [facility]. ??They have not been cleared or approved by the U.S. Food and Drug Administration, although such approval is not required for analyte -specific reagents of this type. ??Appropriate positive and negative controls are included for each case. CLINICAL INFORMATION Specimen: ? Bone marrow, aspirate and bio psy, left Clinical Diagnosis: ? 66M; h/o renal transplant not resp onding to ESAs Indication for Study: ?? Assess for MDS SPECIMEN PROCESSING A - Labeled/Fixative: L hip, formalin. Quantity/Size: Two, 0.4 x 0.2 cm and 0.5 x 0.2 cm. Tissue Description: Cores of pink-aiken bone. Sections/Processing: Blocks submitted for decalcification: A1. Entirely submitted in 1 cassette labeled A1. ??pps Specimen (Source) Anatomical Collection Method Collection Time Re ceived Time Location / / Volume Laterality 10/22/2021 3:05 PM EDT Margaret M Yaniv [facility] PATHOLOGY/CYTOLOGY ORDERABLE S Performing Organization Address City/[facility]/[place] [address] Myeloid Seq Panel (10/22/2021 3:05 PM EDT) Specimen Anatomical Collection Method Collection Time Receive d Time (Source) Location / / Volume Laterality Bone Marrow 10/22/2021 3:05 PM 2 9:24 EDT AM EDT Resulting Agency Comment Spec In Lab Margaret Ramirez Yaniv [facility] CHEMISTRY ORDERABLES Performing Organization Address City/[facility]/[place] [address] Iron Stain, Bone Marrow (10/22/2021 3:05 PM EDT) Patholo gist Method Time Signature Iron Stain BM See Comment [facility] Comment: See Bone Marrow Report [id number] under Hematopathology Reports. Specimen Anatomical Collection Method Collection Time Receive d Time (Source) Location / / Volume Laterality Bone Marrow 10/22/2021 3:05 PM 2 3:27 EDT PM EDT Resulting Agency Comment Spec In Lab Margaret Ramirez Yaniv [facility] HEMATOLOGY ORDERABLES Performing Organization Address City/[facility]/ZIP Code Phon e Number [address] POCT Glucose (10/22/2021 2:15 PM EDT) P athologist Signature POC Glucose 112 65 - 199 [facility] mg/dL [facility] Comment: Supplemental ranges: <140 mg/dL before meals <180 mg/dL all other times of the day Specimen Anatomical Collection Method Collection Time Receive d Time (Source) Location / / Volume Laterality Blood 10/22/2021 2:15 PM 2 2:15 EDT PM EDT Margaret Ramirez Yaniv [place] POINT OF CARE TEST ORDERABLE S Performing Organization Address City/[facility]/ZIP Code Phon e Number [address] APTT (10/22/2021 11:44 AM EDT) P athologist Signature PTT 30 25 - 37 sec [facility] Comment: The PTT is NOT appropriate for heparin m onitoring. Use the Anti-Xa level for heparin monitoring (HEP UFH) or LMWH mon itoring (HEP LMW). A PTT less than 37 seconds generally indicates adequate hem ostasis. Specimen Anatomical Collection Method Collection Time Receive d Time (Source) Location / / Volume Laterality Blood 10/22/2021 11:44 10/22/2021 AM EDT 11:58 AM EDT Resulting Agency Comment Spec In Lab Margaret Royns SHIFT SUPERVISOR HEMATOLOGY ORDERABLES Performing Organization Address City/[facility]/ZIP Code Phon e Number [place] [phone] (ABNORMAL) Prothrombin Time (10/22/2021 11:44 AM EDT) P athologist Signature PT 12.7 (H) 9.4 - 12.5 [facility] LABORATORY INR 1.1 [facility] Comment: An INR <2.0 indicates adequate procoagul ant activity for hemostasis in most patients without underlying bleeding dis orders, though the INR may not adequately reflect hemostatic capacity i n patients with liver disease and synthetic impairment. The recommended ta rget INR range for therapeutic anticoagulation is 2.0 ? 3.0 for most applications, though lower and higher ranges may be appropriate depending on c linical circumstances. Specimen Anatomical Collection Method Collection Time Receive d Time (Source) Location / / Volume Laterality Blood 10/22/2021 11:44 10/22/2021 AM EDT 11:58 AM EDT Narrative This result has an attachment that is no t available. Resulting Agency Comment Spec In Lab Margaret Royns SHIFT SUPERVISOR HEMATOLOGY ORDERABLES Performing Organization Address City/[facility]/[place] [address] (ABNORMAL) Hemogram (10/22/2021 11:44 AM EDT) Analysis Performed At Patho logist Time Signature WBC 6.0 4.0 - 9.5 [facility] x10(3)/[facility] LABORATORY RBC 2.76 (L) 4.58 - JERE GRUBERCK 5.54 [facility] x10(6)/[facility] LABORATORY Hemoglobin 8.2 (L) 13.7 - JERE MUROCOCK 16.5 g/dL [facility] LABORATORY Hematocrit 27.1 (L) 40.5 - JERE MUROCOCK 48.5 % [facility] LABORATORY MCV 98.2 (H) 82.9 - JERE MELI 93.1 [facility] LABORATORY MCH 29.7 27.5 - JERE [place]UR[place]OCK 32.1 pg [facility] LABORATORY MCHC 30.3 (L) 32.0 - JERE MUROCOCK 35.7 g/dL [facility] LABORATORY Platelets 169 145 - 357 [facility] x10(3)/[facility] LABORATORY RDWSD 51.1 (H) 36.0 - JERE MELI 45.0 [facility] LABORATORY RDWCV 14.3 (H) 11.4 - [facility] MELI 13.8 % [facility] LABORATORY MPV 8.3 7.6 - 12.9 [facility] LABORATORY nRBC % Auto 0.0 % [facility] nRBC Abs Auto 0.000 0.000 - JERE MELI 0.000 [facility] x10(3)/[facility] LABORATORY Specimen Anatomical Collection Method Collection Time Receive d Time (Source) Location / / Volume Laterality Blood 10/22/2021 11:44 10/22/2021 AM EDT 11:58 AM EDT Resulting Agency Comment Spec In Lab Margaret Purvis SHIFT SUPERVISOR HEMATOLOGY ORDERABLES Performing Organization Address City/State/[place] [address] documented in this encounter Visit Diagnoses Diagnosis Renal tubular acidosis Other specified disorders resulting from impaired renal function Renal osteodystrophy Anemia, unspecified type documented in this encounter Administered Medications Inactive Administered Medications - up to 3 most recent administrations Medication Order MAR Action Action Date Dose Rate Site fentaNYL (pf) (50 mcg/mL) Given 10/22/2021 3:00 PM EDT 50 mcg multi-dose injection 25-50 mcg 25-50 mcg, Intravenous, EVERY 3 MIN PRN, Starting on Lucie 10/22/21 at 1420, Until Lucie 10/22/21 at 1618, Pain, per unit protocol, - Start dose 50 mcg (reduce dose to 25 mcg if history of sedation sensitivity). - Titration dose 25-50 mcg IV, (based on patient response) every 3 minutes PRN, to maintain procedural pain less than 2 per pain Scale. Maximum dose: 50 mcg/dose, 250 mcg/hour For use in Interventional Radiology (IR) only for procedural sedation with direct provider supervision and verbal order., Angio/IR (Intra-Procedure), Routine Given 10/22/2021 2:50 PM EDT 50 mcg midazolam (pf) (Versed) (1 mg/mL) multi-dose Given 10/22/2021 3: 00 PM EDT 1 mg injection 0.5-1 mg 0.5-1 mg, Intravenous, EVERY 3 MIN PRN, Starting on Lucie 10/22/21 at 1420, Until Lucie 10/22/21 at 1618, Sleep, - Start dose; 1 mg (Reduce dose to 0.5 mg if history of sedation sensitivity). - Titration dose: 0.5 mg - 1 mg (based on patient response) every 3 minutes PRN to obtain RASS score of -3. Maximum dose: 1 mg per dose, 5 mg/hour. For use in Interventional Radiology (IR) only for procedural sedation with direct provider supervision and verbal order., Angio/IR (Intra-Procedure), Routine Given 10/22/2021 2:51 PM EDT 1 mg documented in this encounter Care Teams Carrier Driver Relationship Specialty Start Date End Date Violetta Sanford MD PCP - General 04/02/14 [address] [place] [address] documented as of this encounter
--- OUTSIDE RECORDS SUMMARY | 2022-05-24 10:48 | XMS_ITS | Encounter Summary ---
:1955 Author Organization [place] [address] Care Team Providers Name Role Phone Violetta Sanford MD Primary Care Provider Encounter Details Date Type Department Care Team Description 08/20/2021 Telephone Solid Organ Transplant at Taj Garrison APRN [facility] Giovana tyler [place] [address] [place] [address] [phone] (Wo rk) Social History Tobacco Use Types [...] Telephone Encounter - Taj Lloyd APRN - 08/20/2021 10:45 AM EST Received return phone call from patient. He received my message and will stop the Calcitriol. documented in this encounter Plan of Treatment Upcoming Encounters Date Type Specialty Care Team Description 05/26/2022 Office Visit Otolaryngology Ricardo Panda PA [facility] [place] [address] (Wo rk) 06/02/2022 Infusion Hematology and Oncology 06/16/2022 Infusion Hematology and Oncology 06/21/2022 Office Visit Neurology Tyler Rojas MD [facility] Neurology [place], [place] [phone] (Wo rk) 06/30/2022 Infusion Hematology and Oncology 07/14/2022 Infusion Hematology and Oncology 07/28/2022 Infusion Hematology and Oncology 08/11/2022 Infusion Hematology and Oncology 11/04/2022 Office Visit Rheumatology Dante Freedman PA [facility] RHEUMATOLOGY [place], [place] [address] (Wo rk) documented as of this encounter Visit Diagnoses Not on filedocumented in this encounter Care Teams Continuous Improvement Director Relationship Specialty Start Date End Date Violetta Sanford MD PCP - General 04/02/14 [facility] [address] [place] [address] documented as of this encounter
--- OUTSIDE RECORDS SUMMARY | 2022-05-24 10:48 | XMS_ITS | Encounter Summary ---
:1955 Author Organization [facility] Address [facility] [place] [address] Care Team Providers Name Role Phone Violetta Sanford MD Primary Care Provider Encounter Details Date Type Department Care Team Description 10/26/2021 Office Visit Audiology at [facility] Mindy Moody, Asymmetrical [facility] AUD sensorineural hearing Drive [facility] [place], [place] CENTER [address] AUDIOLOGY DEPT [phone] [place], [place] [address] Social History Tobacco Use Types [...] Progress Notes Mindy Moody, AUD - 10/26/2021 3:15 PM EDT AUDIOLOGY Leroy Torres was scheduled today for a hearing aid check following a hearing evaluation and consult with Dr. Scott. History is positive for asymmetric sensorineural hearing loss. Mr. Torres reportedthat he has not used his hearing aids since shortly after they were fit in 2011. They seemed too loud. One of his hearing aids screetches and the other one is not comfortable in the ear canal. The hearing aids that were brought in to the clinic today were not the Dimitri ITCs fit in 2011, rather, CIC hearing aids with a custom dome at the end. There was no farm reporter information available.The Brian's were counseled that these hearing aids are likely personal sound amplifiers, and they are not able to be adjusted in the clinic. It is recommended that a hearing aid check be scheduled to assess the Dimitri hearing aids. Lien Ferris Clinical Injection [place] [address] ; documented in this encounter Plan of Treatment Upcoming Encounters Date Type Specialty Care Team Description 05/26/2022 Office Visit Otolaryngology Ricardo Panda PA [facility] [place], [place] [address] (Wo rk) 06/02/2022 Infusion Hematology and Oncology 06/16/2022 Infusion Hematology and Oncology 06/21/2022 Office Visit Neurology Tyler Rojas MD [facility] Neurology [place], [place] [phone] (Wo rk) 06/30/2022 Infusion Hematology and Oncology 07/14/2022 Infusion Hematology and Oncology 07/28/2022 Infusion Hematology and Oncology 08/11/2022 Infusion Hematology and Oncology 11/04/2022 Office Visit Rheumatology Dante Freedman PA [facility] RHEUMATOLOGY [place], [place] [address] (Wo rk) documented as of this encounter Visit Diagnoses Diagnosis Asymmetrical sensorineural hearing loss Sensorineural hearing loss, asymmetrical documented in this encounter Care Teams French Polisher Relationship Specialty Start Date End Date Violetta Sanford MD PCP - General 04/02/14 [address] [place] [address] documented as of this encounter
--- OUTSIDE RECORDS SUMMARY | 2022-05-24 10:48 | XMS_ITS | Encounter Summary ---
:1955 Author Organization [facility] [place] [address] Care Team Providers Name Role Phone Violetta Sanford MD Primary Care Provider Encounter Details Date Type Department Care Team Description 10/01/2021 Orders Only Radiology at [facility] Richar Lo MD [facility] [place] [address] [place] [address] [phone] (Wo rk) Social History Tobacco Use Types [...] Otolaryngology Ricardo Panda PA [facility] Dr [place] [address] (Wo rk) 06/02/2022 Infusion Hematology and Oncology 06/16/2022 Infusion Hematology and Oncology 06/21/2022 Office Visit Neurology Tyler Rojas MD [facility] er Neurology [place], [place] [phone] (Wo rk) 06/30/2022 Infusion Hematology and Oncology 07/14/2022 Infusion Hematology and Oncology 07/28/2022 Infusion Hematology and Oncology 08/11/2022 Infusion Hematology and Oncology 11/04/2022 Office Visit Rheumatology Dante Freedman PA [facility] RHEUMATOLOGY [place], [place] [address] (Wo rk) documented as of this encounter Visit Diagnoses Not on filedocumented in this encounter Care Teams Scene And Lighting Design Lecturer Relationship Specialty Start Date End Date Violetta Sanford MD PCP - General 04/02/14 [address] [place] [address] documented as of this encounter
--- OUTSIDE RECORDS SUMMARY | 2022-05-24 10:48 | XMS_ITS | Encounter Summary ---
:1955 Author Organization [facility] [place] [address] Care Team Providers Name Role Phone Violetta Sanford MD Primary Care Provider Encounter Details Date Type Department Care Team Description 09/16/2021 Hospital [place] [address] Social History Tobacco Use Types Packs/Day [...] mg(2.5 mg base)/3 mL Solution for Nebulization FreeStyle Gilberto 2 1 each by 6 kit 3 08/07/2021 Sensor Kit Misc.(Non-Drug; Combo Route) route every 14 days. Use to continuously monitor blood glucose. Scan at least 4 times per day. FreeStyle Gilberto 2 Use to continuously 1 each 0 2 Severy Misc monitor blood glucose. Scan at least [...] 6 kit 3 01/13/2021 Day Sensor Kit [facility].(Non-Drug; Combo Route) route every 14 days. Use to continuously monitor blood glucose. Scan at least 5 times per day. DX: E11.65 darbepoetin cristy in Inject 300 mg as 0 polysorbat 10 mcg/0.4 directed as needed. mL Syringe cyanocobalamin, Take 100 mcg by mouth 0 Vitamin B-12, daily. (Vitamin B-12) 100 mcg Tablet Blood-Glucose Sensor by [facility].(Non-Drug; 0 (Dexcom G6 Sensor) Combo Route) route. Device Sensor, garment cutter andtransmitter metoprolol succinate Take 1 tablet by mouth 90 tablet 1 04/2020 XL (Toprol-XL) 50 mg daily. Tablet Sustained Release 24 hr amLODIPine (Norvasc) Take 0.5 tablets by 90 tablet 3 2019 10 mg Tablet mouth daily. fluticasone INSTILL 2 SPRAYS INTO 0 09/06/2019 propionate (FLONASE) EACH NOSTRIL ONCE A 50 mcg/actuation DAY NEEDED [place], Suspension multivitamin with Take 1 tablet by [...] Devices by 4 each 0 12/02/2015 Supply [facility].(Non-Drug; Combo MiscIndications: S/P Route) route daily. bilateral [...] TAKE ONE TABLET BY 90 tablet 1 08/17/ 022 01/07/2022 mg Tablet MOUTH EVERY DAY Gvoke PFS 1-Pack Inject 1 each 2 Syringe 11 11/10/202010/05 Syringe 1 mg/0.2 mL subcutaneously as SyringeIndications: needed (as needed for Type 2 diabetes severe hypoglycemia). mellitus with Repeat with new unit hyperglycemia, with if no response after long-term current use 15 minutes. of insulin primidone (MYSOLINE) Take 1 tablet by mouth 120 tablet 3 09/201810/26/2021 50 mg Tablet 4 times daily. Start 1/2 tablet at night and increase as directed cholecalciferol, Take 1 tablet by mouth 90 tablet 3 018 03/17/2022 Vitamin D3, 2,000 daily. unit TabletIndications: Vitamin D deficiency documented as of this encounter Plan of Treatment Upcoming Encounters Date Type Specialty Care Team Description 05/26/2022 Office Visit Otolaryngology Ricardo Panda PA [facility] [place], [place] [address] (Wo rk) 06/02/2022 Infusion Hematology and Oncology 06/16/2022 Infusion Hematology and Oncology 06/21/2022 Office Visit Neurology Tyler Rojas MD [facility] Neurology [place], [place] [phone] (Wo rk) 06/30/2022 Infusion Hematology and Oncology 07/14/2022 Infusion Hematology and Oncology 07/28/2022 Infusion Hematology and Oncology 08/11/2022 Infusion Hematology and Oncology 11/04/2022 Office Visit Rheumatology Dante Freedman PA [facility] RHEUMATOLOGY [place], [place] [address] (Wo rk) documented as of this encounter Procedures Procedure Name Priority Date/Time Associated Diagnosis Comme nts TACROLIMUS LEVEL Routine 09/16/2021 12:46 PM Resu lts for this EST procedure are i n the results section. documented in this encounter Results Tacrolimus level (09/16/2021 12:46 PM EST) athologist Signature Tacrolimus Lvl 4.2 ng/mL [facility] Comment: Trough therapeutic range is 3-15 [...] / Volume Laterality Blood Venous Draw / 09/16/2021 12:46 09/16/2021 Unknown PM EST 10:38 PM EST Resulting Agency Comment Spec In Lab Alejo Garnett MD CHEMISTRY ORDERABLES Performing Organization Address City/State/ZIP Code Phon e Number [place] [phone] documented in this encounter Visit Diagnoses Not on filedocumented in this encounter Care Teams Senior Ecologist Relationship Specialty Start Date End Date Violetta Sanford MD PCP - General 04/02/14 [address] [place] [address] documented as of this encounter
--- OUTSIDE RECORDS SUMMARY | 2022-05-24 10:48 | XMS_ITS | Encounter Summary ---
:1955 Author Organization [facility] [place] [address] Care Team Providers Name Role Phone Violetta Sanford MD Primary Care Provider Encounter Details Date Type Department Care Team Description 09/16/2021 [facility] [place] [facility] [address] [place] [phone] Social History Tobacco Use Types [...] this encounter Miscellaneous Notes Telephone Encounter - Amena Burnette RN - 09/16/2021 1:38 PM EST LAB TRACKING Leroy Torres [phone] 1955 ?? DIAGNOSIS: Anemia d/t CKD stage IV, h/o kidney transplant ?? LABS: CBC every 4 weeks as of 05/27/21 ?? MEDICATIONS: Aranesp 300 mcg every 2 weeks if HGB <12 as of 05/27/21 ?? ASSESSMENT/PLAN: Reviewed labs with Dr Baez. Will get aranesp today. Labs again in 1 month, nextdue 10/14/2021 but continue Aranesp every 2 weeks. ADD: as of 09/30/21 aranesp and lab trackings on hold for further work up. 07/22/21 00:00 08/19/21 00:00 09/16/21 00:00 WBC 7.23 (E) 6.46 (E) 5.57 (E) Hemoglobin 9.0 (E) 9.6 (E) 8.4 (E) Hematocrit 30.3 (E) 31.7 (E) 28.6 (E) MCV 97.7 (E) Platelets 169 (E) 190 (E) 159 (E) Neutr Abs (ANC) 4.23 (E) 3.52 (E) 3.19 (E) (E): External lab result documented in this encounter Plan of Treatment Upcoming Encounters Date Type Specialty Care Team Description 05/26/2022 Office Visit Otolaryngology Ricardo Panda PA [facility] [place], [place] [address] (Wo rk) 06/02/2022 Infusion Hematology and Oncology 06/16/2022 Infusion Hematology and Oncology 06/21/2022 Office Visit Neurology Tyler Rojas MD [facility] Neurology [place], [place] [phone] (Wo rk) 06/30/2022 Infusion Hematology and Oncology 07/14/2022 Infusion Hematology and Oncology 07/28/2022 Infusion Hematology and Oncology 08/11/2022 Infusion Hematology and Oncology 11/04/2022 Office Visit Rheumatology Dante Freedman PA [facility] RHEUMATOLOGY [place], [place] [address] (Wo rk) documented as of this encounter Procedures Procedure Name Priority Date/Time Associated Diagnosis Comme nts CBC (WITH DIFF) Routine 09/16/2021 Results for this procedure are in the resu lts section. documented in this encounter Results CBC (with Diff) (09/16/2021) P athologist Signature WBC 5.57 Hemoglobin 8.4 Hematocrit 28.6 Platelets 159 Neutr Abs (ANC) 3.19 Specimen (Source) Anatomical Location Collection Method / Collectio n Time Received Time / Laterality Volume Blood 09/16/2021 Historical Provider HEMATOLOGY ORDERABLES documented in this encounter Visit Diagnoses Not on filedocumented in this encounter Care Teams Jacquard Card Cutter Relationship Specialty Start Date End Date Violetta Sanford MD PCP - General 04/02/14 [address] [place] [address] documented as of this encounter
--- OUTSIDE RECORDS SUMMARY | 2022-05-24 10:48 | XMS_ITS | Encounter Summary ---
:1955 Author Organization [facility] [place] [address] Care Team Providers Name Role Phone Violetta Sanford MD Primary Care Provider Reason for Visit Reason Comments Injections Aranesp Treatment/Therapy Plan Authorization (Routine) - Authorized Specialty Diagnoses / Procedures Referred By Contact Refer red To Contact Hematology and Diagnoses CKD (chronic kidney disease) stage 4, GFR 15-29 ml/min Nicky Baez [facility] Hem Onc Office Oncology Procedures ALFREDA Ramirez MD [address] [place] [address] HEMATOLOGY/ONCOLOGY [id number] [place] [address] Referral ID Status Reason Start Date Expiration Date Visits V isits Requested Authorized [id number] Authorized 10/08/2020 06/23/2022 99 99 Encounter Details Date Type Department Care Team Description 09/16/2021 Infusion Hematology Oncology at [facility] D (chronic kidney disease) [facility] stage 4, GFR 15-29 ml/min [address] [place] [address] [phone] Social History Tobacco Use Types [...] Sign Reading Time Taken Comments Blood Pressure 160/60 09/16/2021 1:29 PM EST Pulse 75 09/16/2021 1:29 PM EST Temperature 36.6 ??C (97.8 ??F) 09/16/2021 1:29 PM EST Respiratory Rate 18 09/16/2021 1:29 PM EST Oxygen Saturation 100% 09/16/2021 1:29 PM EST Inhaled Oxygen Concentration - - Weight - - Height - - Body Mass Index - - documented in this encounter Progress Notes Lindsay Lerma RN - 09/16/2021 2:00 PM EST Infusion Note Diagnosis: CKD anemia Treatment: Aranesp Injection Labs: 09/16/21 - H/H 8.4/28.6. Aranesp 300 mcg injected in right arm. Patient aware to call clinic with any questions or concerns. Plan: Return to clinic as scheduled. documented in this encounter Plan of Treatment Upcoming Encounters Date Type Specialty Care Team Description 05/26/2022 Office Visit Otolaryngology Ricardo Panda PA [facility] [address] [place] [phone] (Wo gregg) 06/02/2022 Infusion Hematology and Oncology 06/16/2022 Infusion Hematology and Oncology 06/21/2022 Office Visit Neurology Tyler Rojas MD [facility] [place] [phone] (Wo rk) 06/30/2022 Infusion Hematology and Oncology 07/14/2022 Infusion Hematology and Oncology 07/28/2022 Infusion Hematology and Oncology 08/11/2022 Infusion Hematology and Oncology 11/04/2022 Office Visit Rheumatology Dante Freedman PA [facility] [place], [place] [address] (Wo rk) documented as of this encounter Visit Diagnoses Diagnosis CKD (chronic kidney disease) stage 4, GF R 15-29 ml/min Chronic kidney disease, Stage IV (severe ) documented in this encounter Administered Medications Inactive Administered Medications - up to 3 most recent administrations Medication Order MAR Action Action Date Dose Rate Site darbepoetin cristy-polysorbate Given 09/16/2021 1:44 PM EST 300 mc g Right Arm (Aranesp) (300 mcg/0.6 mL) injection 300 mcg 300 mcg, Subcutaneous, ONCE, 1 dose, On Tue09/16/21 at 1345, Hold parameters for MDS and chemotherapy-induced anemia: Hemoglobin greater than or equal to 10 gm/dL Hematocrit greater than or equal to 30% Hold parameters for CKD: Hemoglobin greater than or equal to 12 gm/dL Hematocrit greater than or equal to 36%, Routine, What is the indication of use? Chronic Kidney Disease (CKD) documented in this encounter Care Teams Director Operating Room Relationship Specialty Start Date End Date Violetta Sanford MD PCP - General 04/02/14 [address] [place] [address] documented as of this encounter
--- OUTSIDE RECORDS SUMMARY | 2022-05-24 10:48 | XMS_ITS | Encounter Summary ---
:1955 Author Organization [facility] [place] [address] Care Team Providers Name Role Phone Violetta Sanford MD Primary Care Provider Encounter Details Date Type Department Care Team Description 10/05/2021 Office Visit Solid Organ [place], H/O kidney tilley splant; [place] [facility] [place] Desir [place] Other complication of [place] [facility] [place]; [facility] CKD (chronic kidney disease) stage 4, GF R 15-29 ml/min; [place], [place] TRANSPLANT Anemia of chron ic renal failure, stage 4 (severe) [id number] SURGERY [phone] [place] [address] Social History Tobacco Use Types Packs/Day Years [...] Sign Reading Time Taken Comments Blood Pressure 128/60 10/05/2021 9:41 AM EDT Pulse 74 10/05/2021 9:41 AM EDT Temperature 37.3 ??C (99.1 ??F) 10/05/2021 9:41 AM EDT Respiratory Rate - - Oxygen Saturation 98% 10/05/2021 9:41 AM EDT Inhaled Oxygen Concentration - - Weight 129.7 kg (286 lb) 10/05/2021 9:41 AM EDT Height - - Body Mass Index 34.81 09/30/2021 1:48 PM EST documented in this encounter Progress Notes Alejo Garnett MD - 10/05/2021 10:00 AM EDT TRANSPLANT NEPHROLOGY FOLLOW-UP NOTE PATIENT: Leroy Torres : 1955 Transplant ID: Date:?? 10/05/2021; last visit 7 months ago Patient: Leroy Torres Transplant Date: 02/29/2008 Organ(s) Kidney [place] organ diagnosis: Diabetes Mellitus - Type II From Transplant:?? 13 02/02??years ?? ID: This is a 66??yo white male with a history of ESRD secondary to diabetic nephropathy s/p DD renal transplant on 02/29/08 who returns to clinic for ongoing care of his failing transplanted kidney and ckd stage 4 (GFR mid 20s).? Interim Hx: Fair but inadequate response to Aranesp followed by Dr. Baez who is undertaking an anemia W/U including BMBx (see eDH). He saw Dr. Hernandez for Endo follow up in 06/2021 who was pleased with his control. Local labs drawn in July 2021 revealed low serum iron, transferrin and TIBC c/w iron deficiency although hgb 9.6 mg/dL and normal serum ferritin. His calcium remained elevated > 12 mg/dL, but his K+ and PO4 were normal. We previously stopped calcitriol but no further evaluation was undertaken.Unfortunately his creatinine yury to 4.2 mg/dL with an estimated GFR < 15 cc/min using conventional equations which might not be appropriate for a transplanted individual. Based upon physiologic proc esses he was not acidotic either from RTA or an elevated anion gap acidosis. Earlier this month (september 2021), Juvenal Oro obtained labs which indeed corroborated progressive renal dysfunction with an elevated K+ and falling tCO2 suggestive of poor perfusion into the graft causing type 4 RTA not the hyper kalemia of renal failure. This estimated Reuben's GFR at or below 20 cc/min. Of note was his serum calcium dropped to 8.7 mg/dL. I will contact Dr. Baez to see if a BMBx is necessary considering his iron deficiency. Getting his hgb > 10 may in fact aide in perfusing the graft and thus reversing some decline in function althgouh I believe it would be in Reuben's best interest to establish care with our [facility]. Reuben returned to clinic with his .??He was upset about the fact everyone is telling him he'll have to go on dialysis soon. I explained to him he has not yet declined to stage 5 CKD and has sometime ahead but should be prepared. I plotted his creatinine curve for the last 10+ years to show him that his graft is slowly declining not rapidly so. ?? Reuben developed V. zoster of his mid thoracic chest and back more than 6 months ago. He was treated for approximately one week with what he believes was acyclovir but remains in excessive painful radiculopathy. He still has residual discomfort on occasion. ?? He denies ED visits, admits, new allergies. ?? He was admitted to [facility] in October 2018??for fluid overload and??A fib.Reuben denies anasarca, progressive ascites, edema beyond usual from his amputations and obesity. He??is followed both by Dr. Hernandez for diabetes, Dr. Baez for chronic anemia and Dr. Rojas for his neuropathy, autonomic instability. For the record he has rec'd 4 COVID vaccines: the last 03/19/2021. I checked COVID spike protein antibodies and he indeed has them. I asked with whom he would like to establish care for CKD and he requested [facility] I will refer to CKD clinic. He had not yet rec'd a flu shot; we gave him one today. ? Active Ambulatory Problems ?? Diagnosis Date Noted ??? Amputee, below knee, [...] renal transplant 08/29/2012 ??? Immunosuppression 06/18/2013 ??? Transplanted kidney 06/18/2013 ?Appendicitis, sp appendectomy 06/16/13 06/19/2013 ??? Intermittent fever of unknown origin 06/19/2013 ??? Tremor/tics 06/19/2013 ??? Hyperglycemia 06/19/2013 ??? Hydrocele 02/13/2014 ??? Lower urinary tract symptoms 02/13/2014 ??? Hyperlipidemia 04/03/2014 ??? Reflux esophagitis 04/03/2014 ??? COPD (chronic obstructive pulmonary disease) 04/03/2014 ??? Encounter for long-term (current) use of other medications 07/23/2016 ??? Aftercare following organ transplant 07/23/2016 ??? Persistent proteinuria 03/08/2017 ??? Prophylactic immunotherapy 03/21/2019 ??? Chronic atrial fibrillation 07/09/2019 ??? CKD (chronic kidney disease) stage 4, GFR 15-29 ml/min 07/09/2019 ??? Phantom limb pain 09/20/2019 ??? PAF (paroxysmal atrial fibrillation) 11/15/2019 ? Resolved Ambulatory Problems ?? Diagnosis Date Noted ??? End stage renal disease 08/02/2006 ??? Wheelchair fitting or adjustment - Power Chair Evaluation 06/28/14 requested by Donell Hernandez MD 06/28/2014 ??? Wheelchair fitting or adjustment - Power Chair Evaluation 06/28/14 requested by Donell Hernandez MD 06/28/2014 ?? No Additional Past Medical History ? Past Surgical History ? Past Surgical History: Procedure Laterality Date ??? CREATED BY INTERFACE ?left BKA Procedure Date: Unknown ??? CREATED BY INTERFACE ? AV FISTULA CREATION, DIRECT HEMODIALYSIS, ANY SITE, EG ROSA FISTULA / LEFT Procedure Date: 11/13/2004 ??? CREATED BY INTERFACE ? CYSTO,STENT REMOVAL Procedure Date: 04/16/2008 ??? CREATED BY INTERFACE ? Entered not Verified Procedure Date: 09/24/2010 ??? CREATED BY INTERFACE ? KIDNEY TRANSPLANT - TRANSP / LEFT/RIGHT/CADAVERIC Procedure Date: 02/29/2008 ??? CREATED BY INTERFACE ? PREPARATION CADAVERIC RENAL ALLOGRAFT Procedure Date: 02/29/2008 ??? CREATED BY INTERFACE ? RECONSTRUCT CAD\LIVING DONOR RENAL VENOUS ANAS. Procedure Date: 02/29/2008 ??? PRO AMPUTATION LOW LEG THRU TIB/FIB ?? 06/21/2011 ?AMPUTATION, BELOW-KNEE performed by HENNA GAMINO JR at [facility] MA[facility] OR ??? PRO LAP, APPENDECTOMY ?? 06/16/2013 ?? LAPAROSCOPIC APPENDECTOMY performed by Angel Mccann MD at [facility] MA[facility] OR ??? US RENAL TRANSPLANT LEFT Left 06/26/2019 ?? US Renal Transplant Left 06/26/2019 [facility] RAD ULTRASOUND ?? Healthcare maintenance for a transplant recipient: Immunizations [...] age 48 - Normal in [address] [facility] Monthly self skin exam, daily spf [...] done 03/21/2015 which was normal. Due again!! [place] kidney ultrasound looking for renal cell CA, every 5 years post transplant - Due this year. Bone density assessment every 9-12 years post transplant ; has not been performed Annual fasting lipid profile Annual PTH-Vit D3 assessment until normalized Annual spot urine for creatinine, protein, calcium, phosphate, magnesium? Current Outpatient Medications: ??? CellCept 250 mg Capsule, TAKE 2 CAPSULES BY MOUTH 2 TIMES DAILY, Disp: 120 capsule, Rfl: 5 ??? Prograf 0.5 mg Capsule, TAKE 1 CAPSULE BY MOUTH NIGHTLY., Disp: 30 capsule, Rfl: 5 ??? Prograf 1 mg Capsule, TAKE 1 CAPSULE BY MOUTH DAILY, Disp: 30 capsule, Rfl: 5 ??? losartan (Cozaar) 25 mg Tablet, TAKE ONE TABLET BY MOUTH EVERY DAY, Disp: 90 tablet, Rfl: 1 ??? FreeStyle Gilberto 2 Sensor Kit, 1 each by [facility].(Non-Drug; Combo Route) route every 14 days. Use tocontinuously monitor blood glucose. Scan at least 4 times per day., Disp: 6 kit, Rfl: 3 ??? FreeStyle Gilberto 2 [place] [facility], Use to continuously monitor blood glucose. Scan [...] 14 Day Sensor Kit, 1 each by [facility].(Non-Drug; Combo Route) route every 14 days. Use to continuously monitor blood glucose. Scan at least 5 times per day. DX: E11.65, Disp: 6 kit, Rfl: 3 ??? cyanocobalamin, Vitamin B-12, (Vitamin B-12) 100 mcg Tablet, Take 100 mcg by mouth daily., Disp:, Rfl: ??? Blood-Glucose Sensor (Dexcom G6 Sensor) Device, by [facility].(Non-Drug; Combo Route) route. Sensor, oil separator andtransmitter, Disp: , Rfl: ??? metoprolol succinate XL (Toprol-XL) 50 mg Tablet Sustained Release 24 hr, Take 1 tablet by mouthdaily., Disp: 90 tablet, Rfl: 1 ??? amLODIPine (Norvasc) 10 mg Tablet, Take 0.5 tablets by mouth daily., Disp: 90 tablet, Rfl: 3 ??? fluticasone propionate (FLONASE) 50 mcg/actuation [place], Suspension, INSTILL 2 SPRAYS INTO EACH NOSTRIL ONCE A DAY NEEDED, Disp: , Rfl: ??? albuterol (PROVENTIL) 2.5 mg /3 mL (0.083 %) Solution for Nebulization, Take 3 mLs by nebulization every 4 hours as needed for Wheezing., Disp: 90 mL, Rfl: 3 ??? multivitamin with minerals Tablet, Take 1 tablet by mouth Daily., Disp: , Rfl: ??? primidone (MYSOLINE) 50 mg Tablet, Take 1 tablet by mouth 4 times daily. Start 1/2 tablet at night and increase as directed, Disp: 120 tablet, Rfl: 3 ??? LEVEMIR FLEXTOUCH U-100 INSULN Insulin Pen, [...] gauge x 1/2 Needle, 1 Device by [facility].(Non- Drug; Combo Route) route 3 times daily., [...] Disp: , Rfl: ??? Miscellaneous Medical Supply [facility], 4 Devices by [facility].(Non-Drug; Combo Route) route daily. Rubbersheath for leg prosthesis (2 pairs), Disp: 4 each, Rfl: PRN ??? BD INSULIN PEN NEEDLE UF ORIG 29 gauge x 1/2 Needle, , Disp: , Rfl: 0 ??? aspirin 81 mg EC tablet, Take 81 mg by mouth daily., Disp: , Rfl: ??? darbepoetin cristy in polysorbat 10 mcg/0.4 mL Syringe, Inject 300 mg as directed as needed., Disp: , Rfl: Immunization History Administered Date(s) Administered ??? Hepatitis [...] ? Contraindicated - kidney transplant ??? Sulfamethoxazole-Trimethoprim ? ROS: Constitutional - No fevers, chills, weight loss. Skin - No rash or pruritus. HEENT - No headaches, visual changes. Resp - Positive for chronic exertional dyspnea. No cough or wheezing. CV - No chest pain, palpitations, dizziness, orthopnea/PND. GI - No nausea, vomiting, abdominal pain, change in bowel habits or stool color. - No change in urine output. No dysuria or gross hematuria. Neuro - No focal weakness.?? Positive for fluid retention of limbs A 12 point review for uremic signs and symptoms was negative including loss of stamina and endurance. ?? PHYSICAL EXAM:? Vitals Flowsheet Row Office Visit from 10/05/2021 [place] [facility] Weight 129.7 kg (286 lb) Temp 37.3 ??C (99.1 ??F) Temp src Oral Heart Rate 74 BP 128/60 Patient Position Sitting SpO2 98 % Appearance [...] Neuro - Normal speech. Left hand resting tremor.?? Latest Reference Range & Units 10/05/21 05:20 10/05/21 08:39 WBC 4.0 - 9.5 x10(3)/mcL 6.5 RBC 4.58 - 5.54 x10(6)/mcL 2.75 (L) Hemoglobin 13.7 - 16.5 g/dL 8.2 (L) Hematocrit 40.5 - 48.5 % 26.7 (L) MCV 82.9 - 93.1 fL 97.1 (H) MCH 27.5 - 32.1 pg 29.8 MCHC 32.0 - 35.7 g/dL 30.7 (L) RDWSD 36.0 - 45.0 fL 52.1 (H) RDWCV 11.4 - 13.8 % 14.7 (H) Platelets 145 - 357 x10(3)/mcL 178 MPV 7.6 - 12.[address] % 0.7 - 2.6 % 2.[address] Abs 0.030 - 0.120 x10(6)/mcL 0.070 Immature Retic% 0.0 - 15.6 % 17.2 (H) Reticulated Hgb 31.3 - 40.2 pg 24.5 (L) NRBC % Auto % 0.0 NRBC Abs Auto 0.000 - 0.000 x10(3)/mcL 0.000 Neutr Abs (ANC) 1.70 - 6.10 x10(3)/mcL 3.72 Neutrophils % % 57.1 Immature Gran % % 0.50 [1] Lymphocytes % % 27.3 Monocytes % % 10.7 Eosinophils % % 3.8 Basophils % % 0.6 Courtney Gran Abs 0.00 - 0.04 x10(3)/mcL 0.03 Lymphocytes Abs 0.9 - 3.2 x10(3)/mcL 1.8 Monocyte Abs 0.3 - 0.9 x10(3)/mcL 0.7 Eosinophils Abs 0.0 - 0.4 x10(3)/mcL 0.2 Basophils Abs 0.0 - 0.1 x10(3)/mcL 0.0 Sodium 135 - 145 mmol/L 138 Potassium 3.5 - 5.0 mmol/L 5.2 (H) [2] Chloride 98 - 107 mmol/L 111 (H) CO2 22 - 31 mmol/L 19 (L) Anion Gap 5 - 15 mmol/L 8 BUN 10 - 20 mg/dL 44 (H) Creatinine 0.80 - 1.50 mg/dL 3.50 (H) Estimated GFR >=60 mL/min/1.73 m?? 17 (L) [3] Calcium 8.5 - 10.5 mg/dL 9.0 Magnesium 0.69 - 1.07 mmol/L 0.78 Phosphorus 2.5 - 4.5 mg/dL 2.9 Uric Acid 3.5 - 8.5 mg/dL 7.0 Glucose Lvl 65 - 199 mg/dL 118 [4] Hemoglobin A1C 4.3 - 5.6 % 6.4 (H) [5] Est Avg Gluc mg/dL 138 [6] Total Protein 6.1 - 8.0 g/dL 7.1 Albumin 3.2 - 5.2 g/dL 3.5 Total Bilirubin 0.2 - 1.3 mg/dL 0.3 Alk Phos 40 - 130 unit/L 108 AST 0 - 39 unit/L 10 ALT 0 - 55 unit/L 8 LDH 110 - 220 unit/L 134 Total Prot Elec 6.1 - 8.0 g/dL 6.8 Albumin Elect 3.60 - 6.00 g/dL 3.76 Alpha1-Globulin 0.10 - 0.30 g/dL 0.20 Alpha2-Globulin 0.40 - 0.90 g/dL 0.72 Beta Globulin 0.50 - 1.00 g/dL 0.61 Gamma Globulin 0.50 - 1.30 g/dL 1.60 (H) M1 Band None Detected None Detected U Protein Ran 0 - 12 mg/dL 104 (H) Chol, Total mg/dL 73 [7] Lipid Interpretation See Note [8] Folate Lvl 4.8 - 24.2 ng/mL >20.0 Iron 45 - 160 mcg/dL 37 (L) TIBC 250 - 450 mcg/dL 190 (L) Iron Saturation 20 - 50 % 19 (L) Ferritin 30 - 400 ng/mL 71 [9] Vitamin B-12 232 - 1,245 pg/mL 1,177 Copper 0.75 - 1.45 mcg/mL 1.24 [10] Tacrolimus Lvl ng/mL 3.5 [11] TSH 0.27 - 4.20 mcIU/mL 3.91 [12] Color UA Yellow Yellow Appearance UA Clear Clear Spec [place] UA 1.005 - 1.030 1.014 PH UA 5.0 - 8.0 6.0 Protein UA Negative mg/dL 100 ! Glucose UA Negative mg/dL Negative Ketones UA Negative mg/dL Negative Bilirubin UA Negative mg/dL Negative [13] Urobilinogen UA Normal mg/dL Normal Blood UA Negative mg/dL Negative Leukocytes UA Negative mcL Negative Nitrite UA Negative Negative WBC UA 0 - 3 /HPF 1 RBC UA 0 - 3 /HPF 5 (H) Bacteria UA None /HPF Many ! Squam Epith UA <=4 /HPF 1 Culture Reflexed No Prot/Cre Ratio ratio 1.5 U Creatinine mg/dL 69 SARS-CoV-2 Renzo Ab Not Perf [14] Detected [15] GUILHERME Negative (L): Data is abnormally low (H): Data is abnormally high IMPRESSION/ RECOMMENDATIONS: 1. Graft function - failing graft, considering DD kidney 13??years out with creatinine rise to 3.5??mg/dL and progressive proteinuria most likely due to diabetic nephropathy recurrence. Function has deteriorated over the years likely due to poor diabetic control and dehydration.??Now his control is improved but too little too late.??Losartan and lisinopril discont'd due to side effects now proteinuria is becoming symptomatic (lower serum albumin and fluid retention).??However the ckd-epi equation isnot accurate in a graft. His physiologic renal function tells us that his GFR is somewhere around 20cc/min (anemic without RTA of CKD). 2. Immunosuppression - Continue Prograf 1/ 0.5 mg BID and Cellcept 500mg BID.?? 3.??CKD stage 4- physiologic GFR appears to be > 20 cc/min with a) renal osteodystrophy, anemia of CKD and RTA of CKD. GFR hard to interpret with bilateral BKAs. ?- Labs reviewed. Ca++ and Phos WNL.??PTH elevated and 1,25 dihydroxy vit D3 low ?calcitriol to 0.5 mcg qd ?- ??hgb below 10, with poor retic response; Dr. Baez scheduled a BMBx - I would give him a trial of iv iron ?- labs q 3 months, watch for progressive AG acidosis 4. Hyperlipidemia - Continue heart healthy diet. Continue Atorvastatin 20mg daily. 5. Diabetes - A1C??>7%??%. Working with Dr Hernandez?to improve glycemic control. Healthy diet and regular physical activity (upper extremities etc) for weight loss discussed. Diet recs: 2000 mg salt, 75 gm protein 6. New onset AF dx October 2018,??followed by Dr. Quispe 7.Healthcare maintenance - See section above. 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 flu shot first two weeks in April ?? RTC in??6 months??with labs, quarterly refer to CKD clinic Discussion with the patient and/or family concerned the following: ???Diagnostic results or recommended studies ???Prognosis; ???Risks and benefits of management; ???Instructions for management; ???Compliance with treatment; ???Risk factor reduction; ???Patient and family education. ?? Total time: 25 of 30 min in direct face to face counseling department chair. documented in this encounter Plan of Treatment Upcoming Encounters Date Type Specialty Care Team Description 05/26/2022 Office Visit Otolaryngology Ricardo Panda PA [facility] [place] [address] (Wo rk) 06/02/2022 Infusion Hematology and Oncology 06/16/2022 Infusion Hematology and Oncology 06/21/2022 Office Visit Neurology Tyler Rojas MD [facility] Neurology [place], [place] [phone] (Wo rk) 06/30/2022 Infusion Hematology and Oncology 07/14/2022 Infusion Hematology and Oncology 07/28/2022 Infusion Hematology and Oncology 08/11/2022 Infusion Hematology and Oncology 11/04/2022 Office Visit Rheumatology Dante Freedman PA [facility] RHEUMATOLOGY [place], [place] [address] (Wo rk) Scheduled Orders Name Type Priority Associated Diagnoses Order S chedule CBC (with Diff) Lab Routine H/O kidney transplant As Needed for 25 Occurrences sta rting 09/30/2021 unti l 09/30/2022, 1 c ompleted Reticulocyte Count Lab Routine H/O kidney transplant As Needed for 25 Occurrences sta rting 09/30/2021 unti l 09/30/2022, 1 c ompleted Comprehensive metabolic Lab Routine H/O kidney transp lant As Needed for 25 panel (non-fasting) Occurren mariella starting 09/30/2021 unti l 09/30/2022, 1 c ompleted Cholesterol, total Lab Routine H/O kidney transplant As Needed for 25 Occurrences sta rting 09/30/2021 unti l 09/30/2022, 2 c ompleted Magnesium Lab Routine H/O kidney transplant As Nee ded for 25 Occurrences sta rting 09/30/2021 unti l 09/30/2022, 2 c ompleted Phosphorus Lab Routine H/O kidney transplant As Nee ded for 25 Occurrences sta rting 09/30/2021 unti l 09/30/2022, 2 c ompleted Uric acid Lab Routine H/O kidney transplant As Nee ded for 25 Occurrences sta rting 09/30/2021 unti l 09/30/2022, 2 c ompleted Urinalysis with reflex Lab Routine H/O kidney transpl ant As Needed for 25 Culture Occurrences sta rting 09/30/2021 unti l 09/30/2022, 2 c ompleted Protein/Creatinine Ratio, Lab Routine H/O kidney tilley splant As Needed for 25 urine Occurrences sta rting 09/30/2021 unti l 09/30/2022, 2 c ompleted Tacrolimus level Lab Routine H/O kidney transplant As Needed for 25 Occurrences sta rting 09/30/2021 unti l 09/30/2022, 2 c ompleted documented as of this encounter Results (ABNORMAL) Protein/Creatinine Ratio, urine (03/17/2022 11:49 AM EDT) Analysis Performed At [facility] logist Time Signature U Creatinine 70 mg/dL [facility] U Protein Ran 333 (H) 0 - 12 [facility] mg/dL [facility] Prot/Cre Ratio 4.8 ratio [facility] Specimen Anatomical Collection Method Collection Time Receive d Time (Source) Location / / Volume Laterality Urine 03/17/2022 11:49 03/17/2022 AM EDT 12:01 PM EDT Resulting Agency Comment Spec In Lab Alejo Garnett MD URINE ORDERABLES Performing Organization Address City/State/ZIP [place] [address] (ABNORMAL) Urinalysis with reflex Culture (03/17/2022 11:49 AM EDT) Patholo gist Method Time Signature Glucose UA 100 (A) Negative [facility] Protein UA >=300 (A) Negative [facility] Bilirubin UA Negative Negative [facility] mg/dL [facility] Comment: Clinical correlation required for positi ve Urine Bilirubin results as false positive may occur with some drugs and d rug related products. If a false positive is suspected a serum total bili reyna should be considered if clinically indicated. Urobilinogen UA Normal Normal mg/dL [facility] pH UA 6.0 5.0 - 8.0 [facility] Blood UA Negative Negative mg/dL [facility] Ketones UA Negative Negative mg/dL [facility] Nitrite UA Negative Negative [facility] Leukocytes UA Negative Negative [facility] Appearance UA Clear Clear [facility] Spec [place] UA 1.016 1.005 - 1.030 [facility] Color UA Yellow Yellow [facility] Culture Reflexed No [facility] Specimen Anatomical Collection Method Collection Time Receive d Time (Source) Location / / Volume Laterality Clean Catch 03/17/2022 11:49 03/17/2022 Urine AM EDT 11:59 AM EDT Resulting Agency Comment Spec In Lab Alejo Garnett MD URINE ORDERABLES Performing Organization Address City/State/[place] [address] Tacrolimus level (03/17/2022 11:44 AM EDT) P athologist Signature Tacrolimus Lvl 4.4 ng/mL [facility] Comment: Trough therapeutic range is [...] Garnett MD CHEMISTRY ORDERABLES Performing Organization Address City/[facility]/[place] [address] Uric acid (03/17/2022 11:44 AM EDT) P athologist Signature Uric Acid 8.1 3.5 - 8.5 [facility] mg/dL [facility] Specimen Anatomical Collection Method Collection Time Receive d Time (Source) Location / / Volume Laterality Blood 03/17/2022 11:44 03/17/2022 AM EDT 12:08 PM EDT Resulting Agency Comment Spec In Lab Alejo Garnett MD CHEMISTRY ORDERABLES Performing Organization Address City/[facility]/[place] [address] Phosphorus (03/17/2022 11:44 AM EDT) P athologist Signature Phosphorus 3.4 2.5 - 4.5 [facility] mg/dL [facility] Specimen Anatomical Collection Method Collection Time Receive d Time (Source) Location / / Volume Laterality Blood 03/17/2022 11:44 03/17/2022 AM EDT 12:08 PM EDT Resulting Agency Comment Spec In Lab Alejo Garnett MD CHEMISTRY ORDERABLES Performing Organization Address City/[facility]/[place] [address] Magnesium (03/17/2022 11:44 AM EDT) P athologist Signature Magnesium 0.71 0.69 - 1.07 [facility] mmol/L [facility] Specimen Anatomical Collection Method Collection Time Receive d Time (Source) Location / / Volume Laterality Blood 03/17/2022 11:44 03/17/2022 AM EDT 12:08 PM EDT Resulting Agency Comment Spec In Lab Alejo Garnett MD CHEMISTRY ORDERABLES Performing Organization Address City/[facility]/[place] [address] Cholesterol, total (03/17/2022 11:44 AM EDT) athologist Signature Chol, Total 91 mg/dL [facility] Comment: Lower Risk: <200 mg/dL Average Risk: 200-239 mg/dL Higher Risk: >dj=791 mg/dL Lipid Interpretation See Note [facility] Comment: Lipid management should be guided by a p atient? s ASCVD risk, goals and preferences. ACC/AHA Guidelines recommend high intens ity statin if clinical ASCVD or LDL greater than or equal to 190 mg/dL. http://GI Track.com/XFB-CFK-Rbcwjdmxd Adults aged 40-75 with LDL 70-189 mg/dL should have their 10 year ASCVD risk estimated with the ACC/AHA ASCVD risk es timator http://tools.acc.org/NBREE-Thqb-Hqlgkstw r/ Statin should be discussed if risk [...] Organization Address City/State/ZIP Code Phon e Number [address] (ABNORMAL) Comprehensive metabolic panel (non-fasting) (03/17/2022 11:44 AM EDT) athologist Signature Glucose Lvl 116 65 - 199 [facility] mg/dL [facility] Comment: Diabetes: >=200 mg/dL plus symp toms BUN 29 (H) 10 - 20 mg/dL [facility] Creatinine 3.16 (H) 0.80 - 1.50 mg/dL [facility] Sodium 139 135 - 145 mmol/L [facility] Potassium 4.9 3.5 - 5.0 mmol/L [facility] Comment: Please note: ??Patients with WBC >100,00 0 may have falsely elevated Potassium levels. ??For accurate Potassium quantif ication in these patients send serum separator tube (gold top) for subsequent determinations. ??Contact the Clinical Chemistry Laboratory if there are any qu estions. Chloride 108 (H) 98 - 107 mmol/L [facility] CO2 21 (L) 22 - 31 mmol/L [facility] Anion Gap 10 5 - 15 mmol/L [facility] Calcium 8.8 8.5 - 10.5 mg/dL [facility] Total Protein 6.9 6.1 - 8.0 g/dL [facility] Albumin 3.2 3.2 - 5.2 g/dL [facility] AST 16 0 - 39 unit/L [facility] ALT 15 0 - 55 unit/L [facility] Alk Phos 131 (H) 40 - 130 unit/L [facility] Total Bilirubin 0.2 0.2 - 1.3 mg/dL [facility] Estimated GFR 21 (L) >=60 mL/min/1.73 m?? [facility] Comment: This patient's estimated GFR [...] Garnett MD CHEMISTRY ORDERABLES Performing Organization Address [facility]/ZIP [facility] Phon e Number [address] (ABNORMAL) Reticulocyte Count (03/17/2022 11:44 AM EDT) Patholo gist Method Time Signature Retic Ct % 2.1 0.7 - 2.6 [facility] % [facility] Retic Ct Abs 0.070 0.030 - [facility] 0.120 [facility] x10(6)/[facility] L LABORATORY Immature Retic% 22.5 (H) 0.0 - [facility] 15.6 % [facility] Reticulated Hgb 25.9 (L) 31.3 - [facility] 40.2 pg [facility] Specimen Anatomical Collection Method Collection Time Receive d Time (Source) Location / / Volume Laterality Blood 03/17/2022 11:44 03/17/2022 AM EDT 12:08 PM EDT Resulting Agency Comment Spec In Lab Alejo Garnett MD HEMATOLOGY ORDERABLES Performing Organization Address [facility]/ZIP Code Phon e Number [address] COVID-19 Renzo Antibody (10/05/2021 8:39 AM EDT) Analysis Performed At Patho logist Time Signature SARS-CoV-2 Not Perf [facility] Renzo Ab [facility] Comment: This is a total antibody [...] be due to a past infection with gds-BVEC-CaT-2 coronavirus strains, such as coronavirus HKU1, NL63, OC43, or 229E. This test was performed using the Elecsy s Syhx-NTUV-ElO-2 S total antibody assay on the [employer] e801 analyzer. This serology test is available following FDA Emergency Use Authorizatio n, however it has not been reviewed by the FDA, nor is it FDA cleared or approv ed. The performance characteristics of this test were determined by the [facility] ent of Pathology and Laboratory Medicine at [facility]. The laboratory is certified under the Clinical [...] fact sheets at the following FDA website: https://www.fda.gov/medical-devices/zcsiffnqvsz-ioxjvkq-1974-uwtre-49-zuzsopowf- wfd-nvdqkuqawhgjie-fmtcllx-devices/fpqkt-iozokddusgm-rpub Specimen Anatomical Collection Method Collection Time Receive d Time (Source) Location / / Volume Laterality Blood 10/05/2021 8:39 AM EDT 11:24 AM EDT Alejo Garnett MD CHEMISTRY ORDERABLES Performing Organization Address City/State/ZIP Code Phon e Number [place] [phone] Tacrolimus level (10/05/2021 8:39 AM EDT) P athologist Signature Tacrolimus Lvl 3.5 ng/mL [facility] Comment: Trough therapeutic range is [...] Garnett MD CHEMISTRY ORDERABLES Performing Organization Address City/[facility]/ZIP Code Phon e Number [address] Uric acid (10/05/2021 8:39 AM EDT) athologist Signature Uric Acid 7.0 3.5 - 8.5 [facility] Specimen Anatomical Collection Method Collection Time Receive d Time (Source) Location / / Volume Laterality Blood 10/05/2021 8:39 AM 2 8:52 EDT AM EDT Resulting Agency Comment Spec In Lab Alejo Garnett MD CHEMISTRY ORDERABLES Performing Organization Address City/[facility]/ZIP Code Phon e Number [address] Phosphorus (10/05/2021 8:39 AM EDT) athologist Signature Phosphorus 2.9 2.5 - 4.5 [facility] Specimen Anatomical Collection Method Collection Time Receive d Time (Source) Location / / Volume Laterality Blood 10/05/2021 8:39 AM 2 8:52 EDT AM EDT Resulting Agency Comment Spec In Lab Alejo Garnett MD CHEMISTRY ORDERABLES Performing Organization Address City/[facility]/[place] [address] Magnesium (10/05/2021 8:39 AM EDT) athologist Signature Magnesium 0.78 0.69 - 1.07 [facility] mmol/L [facility] Specimen Anatomical Collection Method Collection Time Receive d Time (Source) Location / / Volume Laterality Blood 10/05/2021 8:39 AM 2 8:52 EDT AM EDT Resulting Agency Comment Spec In Lab Alejo Garnett MD CHEMISTRY ORDERABLES Performing Organization Address City/State/ZIP [place] [address] Cholesterol, total (10/05/2021 8:39 AM EDT) athologist Signature Chol, Total 73 mg/dL [facility] Comment: Lower Risk: <200 mg/dL Average Risk: 200-239 mg/dL Higher Risk: >hn=794 mg/dL Lipid Interpretation See Note [facility] Comment: Lipid management should be guided by a p atient? s ASCVD risk, goals and preferences. ACC/AHA Guidelines recommend high intens ity statin if clinical ASCVD or LDL greater than or equal to 190 mg/dL. http://GI Track.com/TLT-KCR-Ftezqqeup Adults aged 40-75 with LDL 70-189 mg/dL should have their 10 year ASCVD risk estimated with the ACC/AHA ASCVD risk es timator http://tools.acc.org/QLRWB-Ndzk-Neetczuv r/ Statin should be discussed if risk [...] Garnett MD CHEMISTRY ORDERABLES Performing Organization Address City/[facility]/ZIP Code Phon e Number [address] (ABNORMAL) Protein/Creatinine Ratio, urine (10/05/2021 5:20 AM EDT) Analysis Performed At Path logist Time Signature U Creatinine 69 mg/dL [facility] U Protein Ran 104 (H) 0 - 12 [facility] mg/dL [facility] Prot/Cre Ratio 1.5 ratio [facility] Specimen Anatomical Collection Method Collection Time Receive d Time (Source) Location / / Volume Laterality Urine 10/05/2021 5:20 AM 8:55 EDT AM EDT Resulting Agency Comment Spec In Lab Alejo Garnett MD URINE ORDERABLES Performing Organization Address City/[facility]/ZIP Code Phon e Number [address] (ABNORMAL) Urinalysis with reflex Culture (10/05/2021 5:20 AM EDT) [facility] gist Method Time Signature Glucose UA Negative Negative [facility] mg/dL [facility] Protein UA 100 (A) Negative [facility] mg/dL [facility] Bilirubin UA Negative Negative [facility] mg/dL [facility] Comment: Clinical correlation required for positi ve Urine Bilirubin results as false positive may occur with some drugs and d rug related products. If a false positive is suspected a serum total bili reyna should be considered if clinically indicated. Urobilinogen UA Normal Normal mg/dL [facility] pH UA 6.0 5.0 - 8.0 [facility] Blood UA Negative Negative mg/dL [facility] Ketones UA Negative Negative mg/dL [facility] Nitrite UA Negative Negative [facility] Leukocytes UA Negative Negative [facility] LABORATORY Appearance UA Clear Clear [facility] Spec [place] UA 1.014 1.005 - 1.030 [facility] Color UA Yellow Yellow [facility] Culture Reflexed No 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
--- OUTSIDE RECORDS SUMMARY | 2022-05-24 10:48 | XMS_ITS | Encounter Summary ---
:1955 Author Organization [facility] [place] [address] Care Team Providers Name Role Phone Violetta Sanford MD Primary Care Provider Reason for Visit Consultation (Routine) - Closed Specialty Diagnoses / Procedures Referred By Contact Refer red To Contact Otolaryngology Diagnoses Hearing loss of left ear, unspecified hearing loss type Donell Hernandez MD [facility] Otolaryngology [address] [place] [address] [place] [address] 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; [place] [address] OTOLARYNGOLOGY Tinnitus aurium, bilateral [phone] [place] [address] Social History Tobacco Use Types Packs/Day Years [...] - Inhaled Oxygen Concentration - - Weight 127 kg (280 lb) 10/26/2021 2:23 PM EDT Height 193 cm (6' 4) 10/26/2021 2:23 PM EDT Body Mass Index 34.08 10/26/2021 2:23 PM EDT documented in this encounter Progress Notes Iraj Scott MD - 10/26/2021 2:20 PM EDT [facility] Otolaryngology - Head and Neck Surgery Iraj Scott MD 10/27/21 1:50 PM [place] [address] Office Patient Name: Leroy Torres Date of : 1955 PCP: Violetta Sanford MD Chief Complaint: hearing loss History of Present Illness: Leroy Torres is a 66 y.o. year old male who was seen today at the request of Donell Hernandez in consultation for hearing loss. Patient presents [...] the left. Bone-conduction thresholds essentially symmetric. Speech dermatology physician assistant thresholds at 20 dB for the right [...] state due to drug therapy D84.821, Z79.899 Current Outpatient Medications on File Prior to [...] Gilberto 2 Sensor Kit 1 each by [facility].(Non-Drug; Combo Route) route every 14 days. Use to continuously monitor blood glucose. Scan at least 4 times per day. 6 kit 3 ??? FreeStyle Gilberto 2 [place] [facility] Use to continuously monitor [...] 14 Day Sensor Kit 1 each by [facility].(Non-Drug; Combo Route) route every [...] Blood-Glucose Sensor (Dexcom G6 Sensor) Device by [facility].(Non-Drug; Combo Route) route. Sensor, safety and health manager andtransmitter ??? metoprolol succinate XL (Toprol-XL) 50 mg Tablet Sustained Release 24 hr Take 1 tablet by mouth daily. 90 tablet 1 ??? amLODIPine (Norvasc) 10 mg Tablet Take 0.5 tablets by mouth daily. 90 tablet 3 ??? fluticasone propionate (FLONASE) 50 mcg/actuation [employer], Suspension INSTILL 2 SPRAYS INTO EACH NOSTRIL [...] gauge x 1/2 Needle 1 Device by [facility].(Non- Drug; Combo Route) route [...] Reported on 08/06/2016 ??? Miscellaneous Medical Supply [facility] 4 Devices by [facility].(Non-Drug; Combo Route) route daily. Rubber sheath for leg prosthesis (2 pairs) 4 each PRN ??? BD INSULIN PEN NEEDLE UF ORIG 29 gauge x 1/2 Needle 0 ??? aspirin 81 mg EC tablet Take 81 mg by mouth daily. No current facility-administered medications on file prior to visit. Allergies: Penicillins, Iftikhar inhibitors, Clindamycin hcl, Allergenic extracts, Ibuprofen, and Sulfamethoxazole-trimethoprim Surgical History: Past Surgical History: [...] Biopsy Bone Marrow 10/22/2021 Richar Lo MD [facility] RAD CT SCAN ??? 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 PRO LAP, APPENDECTOMY 06/16/2013 LAPAROSCOPIC APPENDECTOMY performed by Angel Mccann MD at [facility] MAIN OR ??? US RENAL TRANSPLANT LEFT Left 06/26/2019 US Renal Transplant Left 06/26/2019 [facility] RAD ULTRASOUND Family and Social History Family History: No family history on file. Social History: Lives [place] [address] Social History Socioeconomic History ??? Marital status: Spouse name: Not on file ??? Number of children: Not on file ??? Years of education: Not on file ??? Highest education level: Not on file Occupational History ??? Not on file Tobacco Use ??? Smoking status: Former Smoker Packs/day: 2.00 Years: 20.00 Pack years: 40.00 Types: Cigarettes Quit date: 01/19/1993 Years since quittin.7 ??? Smokeless tobacco: Never Used Vaping Use [...] without deformity. See documentation of otomicroscopy below. Tuning forks: Ladd midline; air conduction greater than bone conduction bilaterally. Nose: External nose is midline without deformity or lesion. Normal exam of the septum and turbinates. Oral: There are no visible or palpable buccal, gingival, lingual, or palatal lesions. The floor of mouth is soft and flat. Oropharynx: Normal exam of the tonsils, tonsillar fossa, soft palate, and posterior pharynx. Salivary: Normal exam of the parotid and submandibular glands. Hem/Lymph/Imm: Neck supple without cervical mass or lymphadenopathy. Skin: Skin survey of the head and neck is without concerning lesion. MSK: Normal neck range of motion. No trismus. Resp: Breathing comfortably without stridor or retractions. Normal respirations. CV: Normal carotid pulses. Psych: Normal mood and affect. Labs and Imaging Significant lab values are as follows: n/a I reviewed the following imaging studies: n/a [...] canal appreciably narrowed. Drum is intact with slight retraction. Impaired with normal mobility via pneumatic otoscopy. Middle ear is mucoid effusion. Negative fistula test. No cholesteatoma. Procedure Note: Office Myringotomy Tube Placement Surgeon: Iraj Scott MD Preop Diagnosis: mucoid otitis media, left ear Postop Diagnosis: same Procedure: Left myringotomy, without tube placement Findings: thick inspissated mucoid middle ear effusion, left ear EBL: <1 mL Complications: none Procedure: Informed consent was obtained. Under binocular microscopy and phenol anesthesia, a radially based left myringotomy was placed in the posterior- inferior quadrant of the tympanic membrane. Themiddle ear was suctioned free. The inspissated mucoid effusion was very thick, and given the limitedworking environment and patient tolerance, this was incompletely cleared with micro- suctioning. A tympanostomy tube placement was attempted, but was limited by patient tolerance and the narrowed working environment. Patient overall tolerated the procedure well. No major complications were noted, although patient did experience a mild focal abrasion in the external auditory more laterally. ASSESSMENT & RECOMMENDATIONS Leroy Torres is a 66 y.o. male who presents with slowly progressive subjective hearing decline bilaterally [...] attributed to narrowed bony external auditory canal. Audiogram with slight sloping to severe high-frequency mixed hearing loss bilaterally, predominantlysensorineural, with some bilateral conductive overlay, worse on the left. Bone-conduction thresholdsessentially symmetric. Well preserved bilateral discrimination. Normal tympanogram on the right, with negative pressure tympanogram on the left. 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 Although hearing loss is largely sensorineural, he does exhibit some conductive overlay, worse on the left. Examination findings congruent with chronic mucoid otitis media, left ear, and suspected ETD on thisside. Myringotomy performed today. A very thick inspissated mucoid middle ar effusion was encountered which was partially suctioned clear. However, given the limited working environment with his narrowed ear canal and patient tolerance, attempted tympanostomy tube insertion was not able to be completed. Discussed therapeutic options, to include myringotomy with tube insertion for the [...] He will be referred for surgical scheduling. In the interim, advised pred forte 4 gtts bid with tragal pumping for 3 days, and recommended continued dry ear precautions for one week. Patient will need general medical clearance for an anticipated 15 minute general anesthetic. Also discussed that prior to planned surgery, we will obtain hard copy imaging of prior CT temporalsobtained through Dr. Chiu's office. Patient verbally expressed understanding and was in agreement with the plan as outlined above. Our contact information was provided should any significant questions, concerns or problems arise prior toplanned surgery. Thank you for this interesting consultation and for allowing us to participate in this patient's care. The total time spent for chart review, history, examination, counseling, education, and documentation was 60 minutes, including 15 minutes spent doing myringotomy and attempted tympanostomy tube placement. Iraj Scott MD Otology / Neurotology Otolaryngology - Head & Neck Surgery 10/27/21 1:50 PM documented in this encounter Plan of Treatment Upcoming Encounters Date Type Specialty Care Team Description 05/26/2022 Office Visit Otolaryngology Ricardo Panda PA [facility] [place], [place] [address] (Wo rk) 06/02/2022 Infusion Hematology and Oncology 06/16/2022 Infusion Hematology and Oncology 06/21/2022 Office Visit Neurology Tyler Rojas MD [facility] Neurology [place], [place] [phone] (Wo rk) 06/30/2022 Infusion Hematology and Oncology 07/14/2022 Infusion Hematology and Oncology 07/28/2022 Infusion Hematology and Oncology 08/11/2022 Infusion Hematology and Oncology 11/04/2022 Office Visit Rheumatology Dante Freedman PA [facility] RHEUMATOLOGY [place], [place] [address] (Wo rk) documented as of this encounter Visit Diagnoses Diagnosis Chronic mucoid otitis media of left ear Simple or unspecified chronic mucoid beth tis media ETD (Eustachian tube dysfunction), left 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
--- OUTSIDE RECORDS SUMMARY | 2022-05-24 10:48 | XMS_ITS | Encounter Summary ---
:1955 Author Organization [facility] [place] [address] Care Team Providers Name Role Phone Violetta Sanford MD Primary Care Provider Reason for Referral Diagnostic Test (Routine) - Closed Specialty Diagnoses / Procedures Referred By Contact Refer red To Contact Radiology Diagnoses Anemia, unspecified type Margaret Purvis, SUBSTATION SUPERVISOR [facility] Rad Ct Scan Procedures CT Guided Biopsy Bone Marrow [facility] HEMATOLOGY/[place] [address] [place] [address] Referral ID Status Reason Start Date Expiration Date Visits V isits Requested Authorized [id number] Closed Specialty 09/30/2021 04/02/2023 1 1 Service Requested Encounter Details Date Type Department Care Team Description 09/30/2021 Orders Only Hematology and Margaret Purvis, Anemia, unspecified Oncology at [facility] SUBSTATION SUPERVISOR [place] [address] HEMATOLOGY/ONCOLOG [phone] Y DEPT. [place], [place] [address] Social History Tobacco Use Types [...] Panda PA [facility] [address] [place] [address] (Wo rk) 06/02/2022 Infusion Hematology and Oncology 06/16/2022 Infusion Hematology and Oncology 06/21/2022 Office Visit Neurology Tyler Rojas MD [facility] Neurology [place], [place] [phone] (Wo rk) 06/30/2022 Infusion Hematology and Oncology 07/14/2022 Infusion Hematology and Oncology 07/28/2022 Infusion Hematology and Oncology 08/11/2022 Infusion Hematology and Oncology 11/04/2022 Office Visit Rheumatology Dante Freedman PA [facility] RHEUMATOLOGY [place], [place] [address] (Wo rk) documented as of this encounter Results CT Guided Biopsy Bone [...] unit that requested your imaging first. ? Electronically signed by: Richar Lo MD , [facility] ([phone]), at 10/22/2021 4:08 PM Narrative 10/22/2021 4:08 PM EDT PROCEDURE: CT [...] re- procedural time-out was performed as per [facility] protocol. The patient was place d in [...] barrier technique was utilized. The 11-gauge G [employer] bone marrow bio psy set was employed. [...] re- procedural time-out was performed as per [facility] protocol. The patient was place d in [...] barrier technique was utilized. The 11-gauge G [employer] bone marrow bio psy set was employed. [...] care unit that requested your imaging first. Electronically signed by: Richar Lo MD , [facility] ([phone]), at 10/22/2021 4:08 PM Margaret Purvis SUBSTATION SUPERVISOR IMG CT ORDERABLES documented in this encounter Visit Diagnoses Diagnosis Anemia, unspecified type Renal tubular acidosis Other specified disorders resulting from impaired renal function Renal osteodystrophy Anemia, unspecified type documented in this encounter Care Teams Show Dog Trainer Relationship Specialty Start Date End Date Violetta Sanford MD PCP - General 04/02/14 [address] [place] [address] documented as of this encounter
--- OUTSIDE RECORDS SUMMARY | 2022-05-24 10:48 | XMS_ITS | Encounter Summary ---
:1955 Author Organization [facility] [place] [address] Care Team Providers Name Role Phone Violetta Sanford MD Primary Care Provider Encounter Details Date Type Department Care Team Description 08/19/2021 Telephone Solid Organ Transplant at Taj Garrison APRN [facility] Giovana [place] [address] [place] [address] [phone] (Wo rk) Social History Tobacco Use Types [...] Encounter - Taj Lloyd APRN - 08/19/2021 4:25 PM EST Received call from lab at [facility] in [facility] for critical results of Cr 4.2 and Calcium of 12.1. Discussed with Dr. Garnett - the patient has a failing graft. The rising creatinine is known. For the Calcium of 12.1 - patient needs to stop Calcitriol. Also stop any Tums or other Calcium supplements. I will call patient to go over the plan. documented in this encounter Plan of Treatment Upcoming Encounters Date Type Specialty Care Team Description 05/26/2022 Office Visit Otolaryngology Ricardo Panda PA [facility] [address] [place], [place] [address] (Wo rk) 06/02/2022 Infusion Hematology and Oncology 06/16/2022 Infusion Hematology and Oncology 06/21/2022 Office Visit Neurology Tyler Rojas MD [facility] Neurology [place], [place] [phone] (Wo rk) 06/30/2022 Infusion Hematology and Oncology 07/14/2022 Infusion Hematology and Oncology 07/28/2022 Infusion Hematology and Oncology 08/11/2022 Infusion Hematology and Oncology 11/04/2022 Office Visit Rheumatology Dante Freedman PA [facility] RHEUMATOLOGY [place], [place] [address] (Wo rk) documented as of this encounter Visit Diagnoses Not on filedocumented in this encounter Care Teams Medical Appointment Clerk Relationship Specialty Start Date End Date Violetta Sanford MD PCP - General 04/02/14 [facility] [address] [place] [address] documented as of this encounter
--- OUTSIDE RECORDS SUMMARY | 2022-05-24 10:48 | XMS_ITS | Encounter Summary ---
:1955 Author Organization [facility] [place] [address] Care Team Providers Name Role Phone Violetta Sanford MD Primary Care Provider Reason for Visit Reason Comments Injections Aranesp SC Treatment/Therapy Plan Authorization (Routine) - Authorized Specialty Diagnoses / Procedures Referred By Contact Refer red To Contact Hematology and Diagnoses CKD (chronic kidney disease) stage 4, GFR 15-29 ml/min Nicky Baez [facility] Hem Onc Office Oncology Procedures ALFREDA Ramirez MD [address] [place] [address] HEMATOLOGY/ONCOLOGY [id number] [place] [address] Referral ID Status Reason Start Date Expiration Date Visits V isits Requested Authorized [id number] Authorized 10/08/2020 06/23/2022 99 99 Encounter Details Date Type Department Care Team Description 09/02/2021 Infusion Hematology Oncology at [facility] D (chronic kidney disease) [facility] stage 4, GFR 15-29 ml/min [address] [place] [phone] Social History Tobacco Use Types [...] Sign Reading Time Taken Comments Blood Pressure 142/39 09/02/2021 1:30 PM EST Pulse 55 09/02/2021 1:30 PM EST Temperature 36.7 ??C (98.1 ??F) 09/02/2021 1:30 PM EST Respiratory Rate 20 09/02/2021 1:30 PM EST Oxygen Saturation 100% 09/02/2021 1:30 PM EST Inhaled Oxygen Concentration - - Weight - - Height - - Body Mass Index - - documented in this encounter Progress Notes Millie Kc RN - 09/02/2021 2:00 PM EST Infusion Note Diagnosis: CKD anemia Treatment: Aranesp Injection Labs: 08/19/21 - H/H - 9.6/31.7. Patient stated that Dr. Baez ordered labs monthly. Aranesp 300 mcg injected in right arm. Patient aware to call clinic with any questions or concerns. Plan: Return to clinic as scheduled. documented in this encounter Plan of Treatment Upcoming Encounters Date Type Specialty Care Team Description 05/26/2022 Office Visit Otolaryngology Ricardo Panda PA [facility] [address] [place] [address] (Oscar escobedo) 06/02/2022 Infusion Hematology and Oncology 06/16/2022 Infusion Hematology and Oncology 06/21/2022 Office Visit Neurology Tyler Rojas MD [facility] Dr [address]i [place] [phone] (Wo gregg) 06/30/2022 Infusion Hematology and Oncology 07/14/2022 Infusion Hematology and Oncology 07/28/2022 Infusion Hematology and Oncology 08/11/2022 Infusion Hematology and Oncology 11/04/2022 Office Visit Rheumatology Dante Freedman PA [facility] RHEUMATOLOGY [place], [place] [address] (Wo rk) documented as of this encounter Visit Diagnoses Diagnosis CKD (chronic kidney disease) stage 4, GF R 15-29 ml/min Chronic kidney disease, Stage IV (severe ) documented in this encounter Administered Medications Inactive Administered Medications - up to 3 most recent administrations Medication Order MAR Action Action Date Dose Rate Site darbepoetin cristy-polysorbate Given 09/02/2021 2:14 PM EST 300 mc g Right Arm (Aranesp) (300 mcg/0.6 mL) injection 300 mcg 300 mcg, Subcutaneous, ONCE, 1 dose, On Tue09/02/21 at 1400, Hold parameters for MDS and chemotherapy-induced anemia: Hemoglobin greater than or equal to 10 gm/dL Hematocrit greater than or equal to 30% Hold parameters for CKD: Hemoglobin greater than or equal to 12 gm/dL Hematocrit greater than or equal to 36%, Routine, What is the indication of use? Chronic Kidney Disease (CKD) documented in this encounter Care Teams Motor Vehicles Supervisor Relationship Specialty Start Date End Date Violetta Sanford MD PCP - General 04/02/14 [address] [place] [address] documented as of this encounter
--- OUTSIDE RECORDS SUMMARY | 2022-05-24 10:48 | XMS_ITS | Encounter Summary ---
:1955 Author Organization [facility] [place] [address] Care Team Providers Name Role Phone Violetta Sanford MD Primary Care Provider Encounter Details Date Type Department Care Team Description 10/22/2021 Laboratory Appointment Lab 3L [facility] Renal osteodystrophy; [facility] CKD (chronic kidney disease) stage 4, GFR 15-29 ml/min; [facility] Anemia of chronic renal failure, stage 4 (severe) [place] [id number] Social History Tobacco Use Types Packs/Day Years [...] Ricardo Panda PA [facility] [place], [place] [address] (Wo rk) 06/02/2022 Infusion Hematology and Oncology 06/16/2022 Infusion Hematology and Oncology 06/21/2022 Office Visit Neurology Tyler Rojas MD [facility] Neurology [place], [place] [phone] (Wo rk) 06/30/2022 Infusion Hematology and Oncology 07/14/2022 Infusion Hematology and Oncology 07/28/2022 Infusion Hematology and Oncology 08/11/2022 Infusion Hematology and Oncology 11/04/2022 Office Visit Rheumatology Dante Freedman PA [facility] RHEUMATOLOGY [place], [place] [address] (Wo rk) documented as of this encounter Procedures Procedure Name Priority Date/Time Associated Diagnosis Comme nts HC HEMOGRAM Routine 10/22/2021 11:44 Renal osteodystrophy Res ults for this AM EDT procedure are i n the results section. DIFFERENTIAL, STAT 10/22/2021 11:44 CKD (chronic kidney Res ults for this AUTOMATED AM EDT disease) stage 4, GFR proced ure are in 15-29 ml/min the results Anemia of chronic section. renal failure, stage 4 (severe) HC PARTIAL Routine 10/22/2021 11:44 Renal osteodystrophy Res ults for this THROMBOPLASTIN TIME AM EDT procedur e are in the results section. HC PROTHROMBIN TIME Routine 10/22/2021 11:44 Renal osteodystro phy Results for this AM EDT procedure are i n the results section. CBC (WITH DIFF) STAT 10/22/2021 11:44 CKD (chronic kidney AM EDT disease) stage 4, GFR 15-29 ml/min Anemia of chronic renal failure, stage 4 (severe) COMPREHENSIVE STAT 10/22/2021 11:44 CKD (chronic kidney Res ults for this METABOLIC PANEL AM EDT disease) stage 4, GFR pro cedure are in (NON-FASTING) 15-29 ml/min the results Anemia of chronic section. renal failure, stage 4 (severe) documented in this encounter Results Differential, Automated (10/22/2021 11:44 AM EDT) P athologist Signature Neutrophils % 59.5 % [facility] LABOR[facility] Neutr Abs (ANC) 3.57 1.70 - [facility] 6.10 [facility] x10(3)/[facility] LABORATORY Lymphocytes % 26.1 % [facility] Lymphocytes Abs 1.6 0.9 - 3.2 [facility] x10(3)/[facility] LABORATORY Monocytes % 10.5 % [facility] Monocyte Abs 0.6 0.3 - 0.9 [facility] x10(3)/[facility] LABORATORY Eosinophils % 2.8 % [facility] Eosinophils Abs 0.2 0.0 - 0.4 [facility] x10(3)/[facility] LABORATORY Basophils % 0.8 % [facility] Basophils Abs 0.0 0.0 - 0.1 [facility] x10(3)/[facility] LABORATORY Immature Gran % 0.30 % [facility] Comment: Immature granulocytes(IG's)percentage an d absolute count will include metamyelocytes, myelocytes, and promyelo cytes. Blood smears from CBCs yielding IG's will be scanned manually for concor dance. If this scan disagrees with the automated IG or if promyelocytes are not ed, a manual differential will be performed. Courtney Gran Abs 0.02 0.00 - 0.04 x10(3)/[facility] LABORATORY Specimen Anatomical Collection Method Collection Time Receive d Time (Source) Location / / Volume Laterality Blood 10/22/2021 11:44 10/22/2021 AM EDT 11:58 AM EDT Resulting Agency Comment Spec In Lab Nicky Baez MD HEMATOLOGY ORDERABLES Performing Organization Address City/State/ZIP [place] [address] (ABNORMAL) Comprehensive metabolic panel (non-fasting) (10/22/2021 11:44 AM EDT) P athologist Signature Glucose Lvl 118 65 - 199 [facility] mg/dL [facility] Comment: Diabetes: >=200 mg/dL plus symp toms BUN 47 (H) 10 - 20 mg/dL [facility] Creatinine 3.78 (H) 0.80 - 1.50 mg/dL [facility] Sodium 135 135 - 145 mmol/L [facility] Potassium 5.7 (H) 3.5 - 5.0 mmol/L [facility] Comment: Please note: ??Patients with WBC >100,00 0 may have falsely elevated Potassium levels. ??For accurate Potassium quantif ication in these patients send serum separator tube (gold top) for subsequent determinations. ??Contact the Clinical Chemistry Laboratory if there are any qu estions. Chloride 110 (H) 98 - 107 mmol/L [facility] CO2 17 (L) 22 - 31 mmol/L [facility] Anion Gap 8 5 - 15 mmol/L [facility] Calcium 9.0 8.5 - 10.5 mg/dL [facility] Total Protein 7.3 6.1 - 8.0 g/dL [facility] Albumin 3.6 3.2 - 5.2 g/dL [facility] AST 13 0 - 39 unit/L [facility]ORAT[facility] ALT 12 0 - 55 unit/L [facility]OR[facility] Alk Phos 111 40 - 130 unit/L [facility] Total Bilirubin 0.3 0.2 - 1.3 mg/dL [facility] LABORATORY Estimated GFR 15 (L) >=60 mL/min/1.73 m?? [facility] Comment: This patient? s estimated glomerular filtration rate (eGFR) is between 15 mL/min/1.73 m2 (patients with less muscl e mass per kg body weight) and 18 mL/min/1.73 m2 (patients with more muscl e [...] Organization Address City/State/ZIP [place] [address] (ABNORMAL) Hemogram (10/22/2021 11:44 AM EDT) Analysis Performed At Patho logist Time Signature WBC 6.0 4.0 - 9.5 [facility] LABORATORY RBC 2.76 (L) 4.58 - JERE MELI 5.54 [facility] x10(6)/[facility] LABORATORY Hemoglobin 8.2 (L) 13.7 - [facility] 16.5 g/dL [facility] Hematocrit 27.1 (L) 40.5 - [facility] 48.5 % [facility] MCV 98.2 (H) 82.9 - [facility] 93.1 [facility] LABORATORY MCH 29.7 27.5 - [facility] 32.1 pg [facility] MCHC 30.3 (L) 32.0 - [facility] 35.7 g/dL [facility] Platelets 169 145 - 357 [facility] x10(3)/[facility] LABORATORY RDWSD 51.1 (H) 36.0 - [facility] 45.0 [facility] LABORATORY RDWCV 14.3 (H) 11.4 - [facility] MELI 13.8 % [facility] MPV 8.3 7.6 - 12.9 [facility] nRBC % Auto 0.0 % [facility] nRBC Abs Auto 0.000 0.000 - [facility] 0.000 [facility] x10(3)/[facility] LABORATORY Specimen Anatomical Collection Method Collection Time Receive d Time (Source) Location / / Volume Laterality Blood 10/22/2021 11:44 10/22/2021 AM EDT 11:58 AM EDT Resulting Agency Comment Spec In Lab Margaret Purvis APRN HEMATOLOGY ORDERABLES Performing Organization Address City/State/[place] [address] (ABNORMAL) Prothrombin Time (10/22/2021 11:44 AM EDT) P athologist Signature PT 12.7 (H) 9.4 - 12.5 [facility] LABORATORY INR 1.1 [facility] Comment: An INR <2.0 indicates [...] Agency Comment Spec In Lab Margaret Purvis APRN HEMATOLOGY ORDERABLES Performing Organization Address City/State/[place] [address] APTT (10/22/2021 11:44 AM EDT) P athologist Signature PTT 30 25 - 37 sec [facility] Comment: The PTT is NOT [...] Agency Comment Spec In Lab Margaret Purvis APRN HEMATOLOGY ORDERABLES Performing Organization Address City/State/[place] [address] documented in this encounter Visit Diagnoses Diagnosis Renal osteodystrophy CKD (chronic kidney disease) stage 4, GF R 15-29 ml/min Chronic kidney disease, Stage IV (severe ) Anemia of chronic renal failure, stage 4 (severe) documented in this encounter Care Teams Flexographic Printing Press Operator Relationship Specialty Start Date End Date Violetta Sanford MD PCP - General 04/02/14 [address] [place] [address] documented as of this encounter
--- OUTSIDE RECORDS SUMMARY | 2022-05-24 10:48 | XMS_ITS | Encounter Summary ---
:1955 Author Organization [facility] [place] [address] Care Team Providers Name Role Phone Violetta Sanford MD Primary Care Provider Encounter Details Date Type Department Care Team Description 09/25/2021 External Results Solid Organ Transpla nt [place] [facility] [place] [phone] Social History Tobacco Use Types Packs/Day [...] 05/26/2022 Office Visit Otolaryngology Ricardo Panda PA [facility] [address] [place] [address] (Wo rk) 06/02/2022 Infusion Hematology and Oncology 06/16/2022 Infusion Hematology and Oncology 06/21/2022 Office Visit Neurology Tyler Rojas MD [facility] Dr Sofi [place] [address] 6-[address]22 (Wo rk) 06/30/2022 Infusion Hematology and Oncology 07/14/2022 Infusion Hematology and Oncology 07/28/2022 Infusion Hematology and Oncology 08/11/2022 Infusion Hematology and Oncology 11/04/2022 Office Visit Rheumatology Dante Freedman PA [facility] [place]HEUMATOLOGY [place], [place] [address] (Wo rk) documented as of this encounter Procedures Procedure Name Priority Date/Time Associated Diagnosis Comme nts LAB SCAN Routine 09/16/2021 Results for thi s procedure are in the resu lts section. documented in this encounter Results Scan Doc: Lab (09/16/2021) Narrative This result has an attachment that is no t available. Historical Provider MD SANDOVAL MGR SCAN EXT ORDR/RSLT documented in this encounter Visit Diagnoses Not on filedocumented in this encounter Care Teams Equipment Operat0R Relationship Specialty Start Date End Date Violetta Sanford MD PCP - General 04/02/14 [address] [place] [address] documented as of this encounter
--- OUTSIDE RECORDS SUMMARY | 2022-05-24 10:48 | XMS_ITS | Encounter Summary ---
:1955 Author Organization [facility] [place] [address] Care Team Providers Name Role Phone Violetta Sanford MD Primary Care Provider Reason for Visit Reason Onset Date Comments Labs Only 08/19/2021 Lab Tracking Encounter Details Date Type Department Care Team Description 08/19/2021 Telephone Hematology/Oncology at [facility], Labs Only (Lab Tracking) [facility] Angelica Gilbert RN [address] [place] [phone] Social History Tobacco Use Types Packs/Day [...] Telephone Encounter - Angelica Malhotra RN - 08/19/2021 4:15 PM EST LAB TRACKING Brett Dailey [id number] 1955 DIAGNOSIS: anemia d/t CKD stage IV, h/o kidney transplant LABS: CBC every 4 weeks as of 05/27/21 MEDICATIONS: Aranesp 300 mcg every 2 weeks if HGB <12 as of 05/27/21 ASSESSMENT/PLAN: Reviewed labs with Dr Baez. Will get aranesp today. Labs again in 1 month, nextdue , but continue Aranesp every 2 weeks. Called and spoke with Taj Lloyd RN in transplantto let them know critical calcium and creatinine, she will communicate with Dr Garnett. Results for BRETT DAILEY ( ) as of 08/19/2021 16:26 Ref. Range 05/27/2021 00:00 06/24/2021 00:00 07/22/2021 00:00 08/19/2021 00:00 WBC Unknown 6.17 6.56 7.23 6.46 Hemoglobin Unknown 8.5 8.5 9.0 9.6 Hematocrit Unknown 28.2 28.3 30.3 31.7 MCV Unknown 97.9 97.7 Platelets Unknown 171 155 169 190 Neutr Abs (ANC) Unknown 3.7 3.95 4.23 3.52 Sodium Unknown 139 Potassium Unknown 4.4 BUN Unknown 47 Creatinine Unknown 4.2 (UF) Calcium Unknown 12.1 (UF) Total Bilirubin Unknown 0.3 Iron Unknown 35 TIBC Unknown 206 Ferritin Unknown 67 documented in this encounter Plan of Treatment Upcoming Encounters Date Type Specialty Care Team Description 05/26/2022 Office Visit Otolaryngology Ricardo Panda PA [facility] Dr [address] [place] [address] (Wo gregg) 06/02/2022 Infusion Hematology and Oncology 06/16/2022 Infusion Hematology and Oncology 06/21/2022 Office Visit Neurology Tyler Rojas MD [facility] Neurology [place] [phone] (Wo gregg) 06/30/2022 Infusion Hematology and Oncology 07/14/2022 Infusion Hematology and Oncology 07/28/2022 Infusion Hematology and Oncology 08/11/2022 Infusion Hematology and Oncology 11/04/2022 Office Visit Rheumatology Dante Freedman PA [facility] RHEUMATOLOGY [place] [address] (Wo rk) documented as of this encounter Procedures Procedure Name Priority Date/Time Associated Diagnosis Comme nts CBC (WITH DIFF) Routine 08/19/2021 Results for this procedure are i n the results section . COMPREHENSIVE METABOLIC Routine 08/19/2021 Resu lts for this PANEL (NON-FASTING) procedur e are in the results section . documented in this encounter Results (ABNORMAL) Comprehensive metabolic panel (non-fasting) (08/19/2021) Patholo gist Method Time Signature BUN 47 Creatinine 4.2 (ExtHH) Sodium 139 Potassium 4.4 Calcium 12.1 (ExtHH) Total Bilirubin 0.3 Ferritin 67 Iron 35 TIBC 206 Specimen (Source) Anatomical Location Collection Method / Collectio n Time Received Time / Laterality Volume Blood Historical Provider CHEMISTRY ORDERABLES CBC (with Diff) (08/19/2021) P athologist Signature WBC 6.46 Hemoglobin 9.6 Hematocrit 31.7 Platelets 190 Neutr Abs (ANC) 3.52 Specimen (Source) Anatomical Location Collection Method / Collectio n Time Received Time / Laterality Volume Blood Historical Provider HEMATOLOGY ORDERABLES documented in this encounter Visit Diagnoses Not on filedocumented in this encounter Care Teams Garden Consultant Relationship Specialty Start Date End Date Violetta Sanford MD PCP - General 04/02/14 [address] [place] [address] documented as of this encounter
--- OUTSIDE RECORDS SUMMARY | 2022-05-24 10:48 | XMS_ITS | Encounter Summary ---
:1955 Author Organization [place] [address] Care Team Providers Name Role Phone Violetta Sanford MD Primary Care Provider Encounter Details Date Type Department Care Team Description 09/30/2021 Office Visit Hematology/Oncology Nicky Baez KD (chronic kidney disease) stage 4, GFR 15-29 ml/min; at [facility] MD James Anemia of chronic renal failure, stage 4 (severe); [address] [facility] H/O kidney transplant; [place], [place] DR Lujan; [id number] HEMATOLOGY/ONCOLOGY Abnormal red blood cells; [phone] DEPT. Renal failure, unspecified chronicity [place], [place] [address] (Wo rk) Social History Tobacco [...] Sign Reading Time Taken Comments Blood Pressure 139/51 09/30/2021 1:48 PM EST Pulse 70 09/30/2021 1:48 PM EST Temperature 36.7 ??C (98 ??F) 09/30/2021 1:48 PM EST Respiratory Rate 18 09/30/2021 1:48 PM EST Oxygen Saturation 100% 09/30/2021 1:48 PM EST Inhaled Oxygen Concentration - - Weight 128.8 kg (284 lb) 09/30/2021 1:48 PM EST Height 193 cm (6' 4) 09/30/2021 1:48 PM EST Body Mass Index 34.57 09/30/2021 1:48 PM EST documented in this encounter Progress Notes Nicky Baez MD - 09/30/2021 2:30 PM EST Subjective: Patient ID: Leroy Torres is a 66 y.o. 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 Followed by Dr Garnett at [facility]. Seen for epo supplementation. Patient Active Problem List Diagnosis ??? Essential hypertension ??? Renal osteodystrophy ??? Other postherpetic nervous system involvement ??? Renal tubular acidosis ??? Hypervolemia ??? PAF (paroxysmal atrial fibrillation) ??? Phantom limb pain ??? Chronic atrial fibrillation ??? CKD (chronic kidney disease) stage 4, GFR 15-29 ml/min ??? Prophylactic immunotherapy ??? Persistent proteinuria ??? care home current use of immunosuppressive drug ??? Aftercare [...] 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ifestations HPI Reuben is doing well. He continues to work on loosing weight and have better management of his DM. Hegained 6 # since his last appt. He has had no problems with this Aranesp injections. He reports thathe feels about the same - but he is doing more chores and activities around the house. No headaches. Review of Systems Constitutional: Negative. HENT: Negative. Eyes: Negative. Respiratory: Negative. Negative for cough and shortness of breath. Cardiovascular: Negative. Negative for chest pain, palpitations and leg swelling. Gastrointestinal: Negative. Negative for constipation, diarrhea, nausea and vomiting. Genitourinary: Negative. Musculoskeletal: Negative. Skin: Negative. Neurological: Negative. Negative for weakness and numbness. Psychiatric/Behavioral: Negative. Objective: PHYSICAL EXAM BP 139/51 (Patient Position: Sitting) Pulse 70 Temp 36.7 ??C (98 ??F) (Temporal) Resp 18 Ht 193 cm (6' 4) Wt 128.8 kg (284 lb) SpO2 100% BMI 34.57 kg/m?? Body surface area is 2.63 meters squared. GENERAL: Leroy Torres appears well [...] previous visit (from the past 72 hour(s)). 05/06/21 00:00 05/27/21 00:00 06/24/21 00:00 07/22/21 00:00 08/19/21 00:00 09/16/21 00:00 WBC 7.31 (E) 6.17 (E) 6.56 (E) 7.23 (E) 6.46 (E) 5.57 (E) Hemoglobin 8.2 (E) 8.5 (E) 8.5 (E) 9.0 (E) 9.6 (E) 8.4 (E) Hematocrit 26.4 (E) 28.2 (E) 28.3 (E) 30.3 (E) 31.7 (E) 28.6 (E) MCV 97.1 (E) 97.9 (E) 97.7 (E) Platelets 199 (E) 171 (E) 155 (E) 169 (E) 190 (E) 159 (E) Neutr Abs (ANC) 4.69 (E) 3.7 (E) 3.95 (E) 4.23 (E) 3.52 (E) 3.19 (E) Sodium 139 (E) Potassium 4.4 (E) BUN 47 (E) 43 (E) Creatinine 4.2 !! (E) 4.1 (E) Calcium 12.1 !! (E) Total Bilirubin 0.3 (E) !!: Data is critical (E): External lab result Assessment and Plan: Leroy Torres is a very pleasant 66 y.o. . male referred by Dr Garnett for consideration of erythropoietin supplementation for anemia due to end-stage renal disease, status post transplant. ?? His hemoglobin had been in the 8-9 range. He started on Aranesp 300 mg Q3 weeks approx 3 months ago.His hgb remains in the 8-9 range despite Aranesp 300 mg every 2 weeks. He is tolerating it well and has seen an improvement in his activity. ? I do not anticipate that his hemoglobin will reach a normal level as a componant of his anemia is anemia of chronic disease. He saw Dr. Garnett within the last month, who is also disappointed that hehas not had a more robust response to the Aranesp. Dr. Garnett.asked (through the patient) that weincrease the dose. He is on maximum dose but we can decrease the interval to every 2 weeks which will probably review. ?? We will continue with aranesp 300mcg but as of 05/27/21 we decreased the interval to every 2 weeks. COVID - Vaccinated X 4 and plans for Evusheld - will see Dr Garnett on 10/05 to discuss Evusheld. Justinalso discussed w/ him today but did not enter orders. Given his lack of response to epo, it is worth while to pursue a full anemia work up. I would check: Iron studies, SPEP, TSH, Folate, B12 and a bone marrow biopsy. The labs can be done at [facility] on 10/05 when he is there for an appt with Dr Garnett. I will also order a CT guided BMBx at his conveniencew/ an appt with me 3 weeks afterward. We will check CG and NGS myeloid sequencing panel. Given his body habitus and prostheses, I think a CT guided biopsy will be more successful than an OCS BMBx. ?? He will call sooner if any concerns or changes in status. ?? documented in this encounter Plan of Treatment Upcoming Encounters Date Type Specialty Care Team Description 05/26/2022 Office Visit Otolaryngology Ricarod Panda PA [facility] [place], [place] [address] (Wo rk) 06/02/2022 Infusion Hematology and Oncology 06/16/2022 Infusion Hematology and Oncology 06/21/2022 Office Visit Neurology Tyler Rojas MD [facility] Neurology [place], [place] [phone] (Wo rk) 06/30/2022 Infusion Hematology and Oncology 07/14/2022 Infusion Hematology and Oncology 07/28/2022 Infusion Hematology and Oncology 08/11/2022 Infusion Hematology and Oncology 11/04/2022 Office Visit Rheumatology Dante Freedman PA [facility] [place]HE[place]ATOLOGY [place], [place] [address] (Wo rk) Scheduled Orders Name Type Priority Associated Diagnoses Order S chedule CBC (with Diff) Lab STAT CKD (chronic kidney As Ne eded for 6 disease) stage 4, GFR Occurr ences starting 15-29 ml/min 09/30/2021 until Anemia of chronic 09/30/2022 , 1 completed renal failure, stage 4 (severe) Comprehensive metabolic Lab STAT CKD (chronic kidn ey As Needed for 6 panel (non-fasting) disease) stage 4, GFR Occurrences starting 15-29 ml/min 09/30/2021 until Anemia of chronic 09/30/2022 , 1 completed renal failure, stage 4 (severe) documented as of this encounter Procedures Procedure Name Priority Date/Time Associated Diagnosis Comme nts CREATININE Routine 09/16/2021 Results for thi s procedure are in the resu lts section. documented in this encounter Results (ABNORMAL) Comprehensive metabolic panel (non-fasting) (10/22/2021 11:44 AM EDT) athologist Signature Glucose Lvl 118 65 - 199 [facility] mg/dL [facility] Comment: Diabetes: >=200 mg/dL plus symp toms BUN 47 (H) 10 - 20 mg/dL [facility] Creatinine 3.78 (H) 0.80 - 1.50 mg/dL [facility] Sodium 135 135 - 145 mmol/L [facility] Potassium 5.7 (H) 3.5 - 5.0 mmol/L [facility] Comment: Please note: ??Patients with WBC >100,00 0 may have falsely elevated Potassium levels. ??For accurate Potassium quantif ication in these patients send serum separator tube (gold top) for subsequent determinations. ??Contact the Clinical Chemistry Laboratory if there are any qu estions. Chloride 110 (H) 98 - 107 mmol/L [facility] CO2 17 (L) 22 - 31 mmol/L [facility] Anion Gap 8 5 - 15 mmol/L [facility] Calcium 9.0 8.5 - 10.5 mg/dL [facility] Total Protein 7.3 6.1 - 8.0 g/dL [facility] Albumin 3.6 3.2 - 5.2 g/dL [facility] AST 13 0 - 39 unit/L [facility] ALT 12 0 - 55 unit/L [facility] Alk Phos 111 40 - 130 unit/L [facility] Total Bilirubin 0.3 0.2 - 1.3 mg/dL [facility] Estimated GFR 15 (L) >=60 mL/min/1.73 m?? [facility] Comment: This patient? s estimated glomerular [...] Organization Address City/State/ZIP Code Phon e Number [place] [id number] Copper, serum (10/05/2021 8:39 AM EDT) P athologist Signature Copper 1.24 0.75 - 1.45 [facility] mcg/mL [facility] Comment: ADDITIONAL INFORMATIO N This test was developed and its performa nce characteristics determined by [facility] in a manner co nsistent with CLIA requirements. This test has not been carlos ared or approved by the U.S. Food and Drug Administration. Test Performed by: [address] [facility] [address] [place], [place] [address] Flue Dust Laborer: Van White M.D. Ph. D.; CLIA# [id number] Specimen Anatomical Collection Method Collection Time Receive d Time (Source) Location / / Volume Laterality Blood 10/05/2021 8:39 AM 2 EDT 10:42 AM EDT Resulting Agency Comment Spec In Lab Nicky Baez MD CHEMISTRY ORDERABLES Performing Organization Address City/State/[place] [address] (ABNORMAL) Protein Electrophoresis, serum (10/05/2021 8:39 AM EDT) Patholo gist Method Time Signature Total Prot 6.8 6.1 - 8.0 JERE Elec g/dL [facility] Albumin Elect 3.76 3.60 - 6.00 JERE g/dL [facility] Alpha1-Globul 0.20 0.10 - 0.30 JERE in g/dL [facility] Alpha2-Globul 0.72 0.40 - 0.90 JERE in g/dL [facility] Beta Globulin 0.61 0.50 - 1.00 J[place] g/dL [facility] Gamma 1.60 (H) 0.50 - 1.30 J[place] Globulin g/dL [facility] M1 Band None None JERE Detected Detected [facility] Specimen Anatomical Collection Method Collection Time Receive d Time (Source) Location / / Volume Laterality Blood 10/05/2021 8:39 AM 2 8:52 EDT AM EDT Narrative This result has an attachment that is no t available. Resulting Agency Comment Spec In Lab Nicky Baez MD CHEMISTRY ORDERABLES Performing Organization Address City/State/[place] [address] Direct antiglobulin test (10/05/2021 8:39 AM EDT) P athologist Signature GUILHERME Negative [facility] Specimen Anatomical Collection Method Collection Time Receive d Time (Source) Location / / Volume Laterality Blood 10/05/2021 8:39 AM 2 8:44 EDT AM EDT Resulting Agency Comment Spec In Lab Nicky Baez MD BLOOD BANK ORDERABLES Performing Organization Address City/State/[place] [address] [facility] [address] [address] Lactate Dehydrogenase (10/05/2021 8:39 AM EDT) P athologist Signature LDH 134 110 - 220 [facility] MELI unit/L [facility] Specimen Anatomical Collection Method Collection Time Receive d Time (Source) Location / / Volume Laterality Blood 10/05/2021 8:39 AM 8:52 EDT AM EDT Resulting Agency Comment Spec In Lab Nicky Baez MD CHEMISTRY ORDERABLES Performing Organization Address City/[facility]/ZIP Code Phon e Number [address] (ABNORMAL) Reticulocyte Count (10/05/2021 8:39 AM EDT) Patholo gist Method Time Signature Retic Ct % 2.6 0.7 - 2.6 [facility] % [facility] Retic Ct Abs 0.070 0.030 - JERE MELI 0.120 [facility] x10(6)/[facility] L LABORATORY Immature Retic% 17.2 (H) 0.0 - [facility] 15.6 % [facility] Reticulated Hgb 24.5 (L) 31.3 - [facility] MELI 40.2 pg [facility] Specimen Anatomical Collection Method Collection Time Receive d Time (Source) Location / / Volume Laterality Blood 10/05/2021 8:39 AM 8:52 EDT AM EDT Resulting Agency Comment Spec In Lab Nicky Baez MD HEMATOLOGY ORDERABLES Performing Organization Address City/[facility]/[place] [address] [facility] [address] TSH (10/05/2021 8:39 AM EDT) P athologist Signature TSH 3.91 0.27 - 4.20 J[place] MELI mcIU/mL [facility] Comment: Reference Interval (mcIU/mL): Females: ??First Trimester: 0.23-3.88 ??Second Trimester: 0.22-3.90 ??Third Trimester: 0.44-4.66 Specimen Anatomical Collection Method Collection Time Receive d Time (Source) Location / / Volume Laterality Blood 10/05/2021 8:39 AM 2 8:52 EDT AM EDT Resulting Agency Comment Spec In Lab Nicky Baez MD CHEMISTRY ORDERABLES Performing Organization Address City/[facility]/[place] [address] Folate, serum (10/05/2021 8:39 AM EDT) athologist Signature Folate Lvl >20.0 4.8 - 24.2 J[place] MELI ng/mL [facility] Specimen Anatomical Collection Method Collection Time Receive d Time (Source) Location / / Volume Laterality Blood 10/05/2021 8:39 AM 2 8:52 EDT AM EDT Resulting Agency Comment Spec In Lab Nicky Baez MD CHEMISTRY ORDERABLES Performing Organization Address City/[facility]/[place] [address] Vitamin B12 (10/05/2021 8:39 AM EDT) athologist Signature Vitamin B-12 1,177 232 - 1,245 JERE MELI pg/mL [facility] Specimen Anatomical Collection Method Collection Time Receive d Time (Source) Location / / Volume Laterality Blood 10/05/2021 8:39 AM 2 8:52 EDT AM EDT Resulting Agency Comment Spec In Lab Nicky Baez MD CHEMISTRY ORDERABLES Performing Organization Address City/[facility]/[place] [address] Ferritin (10/05/2021 8:39 AM EDT) athologist Signature Ferritin 71 30 - 400 J[place] MELI ng/mL [facility] Comment: Pediatric reference ranges not verified at [facility], interpret with caution. Reference ranges for females [...] Organization Address City/State/[place] [address] (ABNORMAL) Iron and TIBC (10/05/2021 8:39 AM EDT) Analysis Performed At Patho logist Time Signature Iron 37 (L) 45 - 160 [facility]/dL [facility] TIBC 190 (L) 250 - 450 [facility] mcg/dL [facility] Iron Saturation 19 (L) 20 - 50 % [facility] Specimen Anatomical Collection Method Collection Time Receive d Time (Source) Location / / Volume Laterality Blood 10/05/2021 8:39 AM 8:52 EDT AM EDT Resulting Agency Comment Spec In Lab Nicky Baez MD CHEMISTRY ORDERABLES Performing Organization Address City/State/[place] [address] (ABNORMAL) Comprehensive metabolic panel (non-fasting) (10/05/2021 8:39 AM EDT) P athologist Signature Glucose Lvl 118 65 - 199 [facility] mg/dL [facility] Comment: Diabetes: >=200 mg/dL plus symp toms BUN 44 (H) 10 - 20 mg/dL [facility] Creatinine 3.50 (H) 0.80 - 1.50 mg/dL [facility] Sodium 138 135 - 145 mmol/L [facility] Potassium 5.2 (H) 3.5 - 5.0 mmol/L [facility] Comment: Please note: ??Patients with WBC >100,00 0 may have falsely elevated Potassium levels. ??For accurate Potassium quantif ication in these patients send serum separator tube (gold top) for subsequent determinations. ??Contact the Clinical Chemistry Laboratory if there are any qu estions. Chloride 111 (H) 98 - 107 mmol/L [facility] CO2 19 (L) 22 - 31 mmol/L [facility] Anion Gap 8 5 - 15 mmol/L [facility] Calcium 9.0 8.5 - 10.5 mg/dL [facility] Total Protein 7.1 6.1 - 8.0 g/dL [facility] Albumin 3.5 3.2 - 5.2 g/dL [facility] AST 10 0 - 39 unit/L [facility] ALT 8 0 - 55 unit/L [facility] Alk Phos 108 40 - 130 unit/L [facility] Total Bilirubin 0.3 0.2 - 1.3 mg/dL [facility] Estimated GFR 17 (L) >=60 mL/min/1.73 m?? [facility] Comment: This patient? s estimated glomerular [...] Organization Address City/State/[place] [address] Creatinine (09/16/2021) athologist Signature Creatinine 4.1 BUN 43 Specimen (Source) Anatomical Location Collection Method / Collectio n Time Received Time / Laterality Volume Blood 09/16/2021 Historical Provider MD CHEMISTRY ORDERABLES documented in this encounter Visit Diagnoses Diagnosis CKD (chronic kidney disease) stage 4, GF R 15-29 ml/min Chronic kidney disease, Stage IV (severe ) Anemia of chronic renal failure, stage 4 (severe) H/O kidney transplant Kidney replaced by transplant Tiredness Other malaise and fatigue Abnormal red blood cells Other abnormality of red blood cells Renal failure, unspecified chronicity documented in this encounter Care Teams Vmware Administrator Relationship Specialty Start Date End Date Violetta Sanford MD PCP - General 04/02/14 [address] [place] [address] documented as of this encounter
--- OUTSIDE RECORDS SUMMARY | 2022-05-24 10:48 | XMS_ITS | Encounter Summary ---
:1955 Author Organization [facility] [place] [address] Care Team Providers Name Role Phone iVoletta Sanford MD Primary Care Provider Encounter Details Date Type Department Care Team Description 10/23/2021 Hospital [place] [address] Social History Tobacco Use Types Packs/Day [...] Use to continuously 1 each 0 2 [facility] monitor blood glucose. Scan at least 5 [...] 100 mcg Tablet Blood-Glucose Sensor by [facility].(Non-Drug; 0 (Dexcom G6 Sensor) Combo Route) route. Device Sensor, parakeet raiser andtransmitter metoprolol succinate Take 1 tablet by mouth 90 tablet 1 04/2020 XL (Toprol-XL) 50 mg daily. Tablet Sustained Release 24 hr amLODIPine (Norvasc) Take 0.5 tablets by 90 tablet 3 2019 10 mg Tablet mouth daily. fluticasone INSTILL 2 SPRAYS INTO 0 09/06/2019 propionate (FLONASE) EACH NOSTRIL ONCE A 50 mcg/actuation DAY NEEDED [place], Suspension multivitamin with Take 1 tablet by [...] Panda PA [facility] [place], [place] [address] (Wo rk) 06/02/2022 Infusion Hematology and Oncology 06/16/2022 Infusion Hematology and Oncology 06/21/2022 Office Visit Neurology Tyler Rojas MD [facility] Neurology [place], [place] [phone] (Wo rk) 06/30/2022 Infusion Hematology and Oncology 07/14/2022 Infusion Hematology and Oncology 07/28/2022 Infusion Hematology and Oncology 08/11/2022 Infusion Hematology and Oncology 11/04/2022 Office Visit Rheumatology Dante Freedman PA [facility] RHEUMATOLOGY [place], [place] [address] (Wo rk) documented as of this encounter Visit Diagnoses Not on filedocumented in this encounter Care Teams Poultry Culler Relationship Specialty Start Date End Date Violetta Sanford MD PCP - General 04/02/14 [address] [place] [address] documented as of this encounter
--- OUTSIDE RECORDS SUMMARY | 2022-05-24 10:48 | XMS_ITS | Encounter Summary ---
:1955 Author Organization [facility] [place] [address] Care Team Providers Name Role Phone Violetta Sanford MD Primary Care Provider Encounter Details Date Type Department Care Team Description 10/01/2021 Notes Only Radiology at [facility] [place] [place] Richar Lo [place] [facility] [address] [place] [address] [phone] (Wo rk) Social History Tobacco Use Types [...] on file documented as of this encounter H&P Notes Richar Lo MD - 10/01/2021 1:13 PM ESTSummary: CT-guided bone marrow biopsy MUSCULOSKELETAL RADIOLOGY PRE-PROCEDURE NOTE Name: Leroy Torres Date of : 1955 Age: 66 y.o. [...] COPD (chronic obstructive pulmonary disease) J44.9 ??? 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 [...] Gilberto 2 Sensor Kit 1 each by [facility].(Non-Drug; Combo Route) route every 14 days. Use to continuously monitor blood glucose. Scan at least 4 times per day. 6 kit 3 ??? FreeStyle Gilberto 2 [place] [facility] Use to continuously monitor blood glucose. Scan [...] 14 Day Sensor Kit 1 each by [facility].(Non-Drug; Combo Route) route [...] Blood-Glucose Sensor (Dexcom G6 Sensor) Device by [facility].(Non-Drug; Combo Route) route. Sensor, cardiopulmonary technician andtransmitter ??? metoprolol succinate XL (Toprol-XL) 50 mg Tablet Sustained Release 24 hr Take 1 tablet by mouth daily. 90 tablet 1 ??? amLODIPine (Norvasc) 10 mg Tablet Take 0.5 tablets by mouth daily. 90 tablet 3 ??? fluticasone propionate (FLONASE) 50 mcg/actuation [place], Suspension INSTILL 2 SPRAYS INTO EACH NOSTRIL [...] gauge x 1/2 Needle 1 Device by [facility].(Non- Drug; Combo Route) route 3 times daily. [...] Reported on 08/06/2016 ??? Miscellaneous Medical Supply [facility] 4 Devices by [facility].(Non-Drug; Combo Route) route daily. Rubber sheath for [...] 05/26/2022 Office Visit Otolaryngology Ricardo Panda PA [facility] [address] [place], [place] [address] (Wo rk) 06/02/2022 Infusion Hematology and Oncology 06/16/2022 Infusion Hematology and Oncology 06/21/2022 Office Visit Neurology Tyler Rojas MD [facility] Neurology [place], [place] [phone] (Wo rk) 06/30/2022 Infusion Hematology and Oncology 07/14/2022 Infusion Hematology and Oncology 07/28/2022 Infusion Hematology and Oncology 08/11/2022 Infusion Hematology and Oncology 11/04/2022 Office Visit Rheumatology Dante Freedman PA [facility] [place]HE[place]ATOLOGY [place], [place] [address] (Wo rk) documented as of this encounter Visit Diagnoses Not on filedocumented in this encounter Care Teams Sales Operations Consultant Relationship Specialty Start Date End Date Violetta Sanford MD PCP - General 04/02/[address] [facility] [address] [place] [address] documented as of this encounter
--- OUTSIDE RECORDS SUMMARY | 2022-05-24 10:48 | XMS_ITS | Encounter Summary ---
:1955 Author Organization [facility] [place] [address] Care Team Providers Name Role Phone Violetta Sanford MD Primary Care Provider Encounter Details Date Type Department Care Team Description 10/22/2021 Orders Only Hematology and Oncology at [facility], Margaret Ramirez APRN [facility] Giovana tyler HEMATOLOGY/[place] [address] DEPT. [phone] [place], [place] [address] (Wo rk) Social History [...] Office Visit Otolaryngology Ricardo Panda PA [facility] [address] [place], [place] [address] (Wo rk) 06/02/2022 Infusion Hematology and Oncology 06/16/2022 Infusion Hematology and Oncology 06/21/2022 Office Visit Neurology Tyler Rojas MD [facility] er Neurology [place], [place] [phone] (Wo rk) 06/30/2022 Infusion Hematology and Oncology 07/14/2022 Infusion Hematology and Oncology 07/28/2022 Infusion Hematology and Oncology 08/11/2022 Infusion Hematology and Oncology 11/04/2022 Office Visit Rheumatology Dante Freedman PA [facility] RHEUMATOLOGY [place], [place] [address] (Wo rk) documented as of this encounter Visit Diagnoses Not on filedocumented in this encounter Care Teams Web Press Operator Relationship Specialty Start Date End Date Violetta Sanford MD PCP - General 04/02/14 [address] [place] [address] documented as of this encounter
--- OUTSIDE RECORDS SUMMARY | 2022-05-24 10:48 | XMS_ITS | Encounter Summary ---
:1955 Author Organization [facility] [place] [address] Care Team Providers Name Role Phone Violetta Sanford MD Primary Care Provider Reason for Referral Consultation (NED) - Authorized Specialty Diagnoses / Procedures Referred By Contact Refer red To Contact Nephrology Diagnoses H/O kidney transplant CKD (chronic kidney disease) stage 4, GFR 15-29 ml/min Anemia of chronic renal failure, stage 4 (severe) Alejo Garnett [facility] [address] [place] [address] Referral ID Status Reason Start Date Expiration Visits Visits Date Requested Authorized [id number] Authorized Assume 10/21/2021 10/21/2022 12 12 Subset of Care Encounter Details Date Type Department Care Team Description 10/20/2021 Orders Only Solid Organ Transplant Alejo Garnett H/O kidney transplant; at [facility] MD Thang CKD (chronic kidney disease) stage 4, GF R 15-29 ml/min; [facility] Ane maki of chronic renal failure, stage 4 (severe) [place] [address] TRANSPLANT SURGERY [phone] [place], [place] [address] Social History Tobacco Use Types [...] Otolaryngology Ricardo Panda PA [facility] [place], [place] [address] (Wo rk) 06/02/2022 Infusion Hematology and Oncology 06/16/2022 Infusion Hematology and Oncology 06/21/2022 Office Visit Neurology Tyler Rojas MD [facility] Neurology [place], [place] [phone] (Wo rk) 06/30/2022 Infusion Hematology and Oncology 07/14/2022 Infusion Hematology and Oncology 07/28/2022 Infusion Hematology and Oncology 08/11/2022 Infusion Hematology and Oncology 11/04/2022 Office Visit Rheumatology Dante Freedman PA [facility] RHEUMATOLOGY [place], [place] [address] (Wo rk) Scheduled Referrals Name Type Priority Associated Order Schedule Diagnoses Referral to Outpatient Referral Routine H/O kidney Ordered: Nephrology transplant 10/21/2021 CKD (chronic kidney disease) stage 4, GFR 15-29 ml/min Anemia of chronic renal failure, stage 4 (severe) documented as of this encounter Visit Diagnoses Diagnosis H/O kidney transplant Kidney replaced by transplant CKD (chronic kidney disease) stage 4, GF R 15-29 ml/min Chronic kidney disease, Stage IV (severe ) Anemia of chronic renal failure, stage 4 (severe) documented in this encounter Care Teams Cereal Popper Relationship Specialty Start Date End Date Violetta Sanford MD PCP - General 04/02/14 [address] [place] [address] documented as of this encounter
--- OUTSIDE RECORDS SUMMARY | 2022-05-24 10:48 | XMS_ITS | Encounter Summary ---
:1955 Author Organization [facility] [place] [address] Care Team Providers Name Role Phone Violetta Sanford MD Primary Care Provider Reason for Visit Reason Onset Date Comments Medication Refill 10/26/2021 Encounter Details Date Type Department Care Team Description 10/26/2021 Refill Neurology at [facility] Shivam Rojas MD [facility] [place] [address] Neurology [phone] [place], [place] [phone] (Wo rk) Social History [...] this encounter Miscellaneous Notes Telephone Encounter - Ronald Mancini RN - 10/26/2021 2:05 PM EDT Called Leroy to discuss yearly visit. Reached voicemail. Left a message: Your prescription request has been approved. However if you would like to received future refills of this medication you will need to schedule an appointment yearly in order to receive prescriptions from Neurology. If you you would prefer not to continue with Neurology, you may ask your PCP to take over prescribing and maintenance of this prescription. Please call to discuss: Ronald Mancini RN, [facility] Neurology, . Telephone Encounter - Ronald Mancini RN - 10/26/2021 11:39 AM EDT Patient came to Neurology to ask for primidone refill. Last visit:, 02/06/21 canceled appointment Next visit: not scheduled Will prepare prescription as requested and sent to physician for review. Will ask secretaries to contact the patient for scheduling yearly appointment. documented in this encounter Plan of Treatment Upcoming Encounters Date Type Specialty Care Team Description 05/26/2022 Office Visit Otolaryngology Ricardo Panda PA [facility] [address] [place] [address] (Wo rk) 06/02/2022 Infusion Hematology and Oncology 06/16/2022 Infusion Hematology and Oncology 06/21/2022 Office Visit Neurology Tyler Rojas MD [facility] Dr [place], [place] [phone] (Wo rk) 06/30/2022 Infusion Hematology and Oncology 07/14/2022 Infusion Hematology and Oncology 07/28/2022 Infusion Hematology and Oncology 08/11/2022 Infusion Hematology and Oncology 11/04/2022 Office Visit Rheumatology Dante Freedman PA [facility] RHEUMATOLOGY [place], [place] [address] (Wo rk) documented as of this encounter Visit Diagnoses Not on filedocumented in this encounter Care Teams Project Management Intern Relationship Specialty Start Date End Date Violetta Snaford MD PCP - General 04/02/14 [address] [place] [address] documented as of this encounter
--- OUTSIDE RECORDS SUMMARY | 2022-05-24 10:48 | XMS_ITS | Encounter Summary ---
:1955 Author Organization [place] [address] Care Team Providers Name Role Phone Violetta Sanford MD Primary Care Provider Reason for Visit Reason Comments Injections aranesp Treatment/Therapy Plan Authorization (Routine) - Authorized Specialty Diagnoses / Procedures Referred By Contact Refer red To Contact Hematology and Diagnoses CKD (chronic kidney disease) stage 4, GFR 15-29 ml/min Nicky Baez [facility] Hem Onc Office Oncology Procedures ALFREDA Ramirez MD [address] [place] [address] HEMATOLOGY/ONCOLOGY [address] [place] [address] Referral ID Status Reason Start Date Expiration Date Visits V isits Requested Authorized [id number] Authorized 10/08/2020 06/23/2022 99 99 Encounter Details Date Type Department Care Team Description 09/30/2021 Infusion Hematology Oncology at [facility] D (chronic kidney disease) [facility] stage 4, GFR 15-29 ml/min [address] [place] [phone] Social History Tobacco Use Types [...] documented as of this encounter Progress Notes Angelica Malhotra RN - 09/30/2021 3:00 PM EST Infusion Note Diagnosis: CKD anemia [...] Panda PA [facility] [place], [place] [address] (Wo rk) 06/02/2022 Infusion Hematology and Oncology 06/16/2022 Infusion Hematology and Oncology 06/21/2022 Office Visit Neurology Tyler Rojas MD [facility] Neurology [place], [place] [phone] (Wo rk) 06/30/2022 Infusion Hematology and Oncology 07/14/2022 Infusion Hematology and Oncology 07/28/2022 Infusion Hematology and Oncology 08/11/2022 Infusion Hematology and Oncology 11/04/2022 Office Visit Rheumatology Dante Freedman PA [facility] RHEUMATOLOGY [place], [place] [address] (Wo rk) documented as of this encounter Visit Diagnoses Diagnosis CKD (chronic kidney disease) stage 4, GF R 15-29 ml/min Chronic kidney disease, Stage IV (severe ) documented in this encounter Administered Medications Inactive Administered Medications - up to 3 most recent administrations Medication Order MAR Action Action Date Dose Rate Site darbepoetin cristy-polysorbate Given 09/30/2021 2:45 PM EST 300 mc g Right Arm (Aranesp) (300 mcg/0.6 mL) injection 300 mcg 300 mcg, Subcutaneous, ONCE, 1 dose, On Tue09/30/21 at 1500, Hold parameters for MDS and chemotherapy-induced anemia: Hemoglobin greater than or equal to 10 gm/dL Hematocrit greater than or equal to 30% Hold parameters for CKD: Hemoglobin greater than or equal to 12 gm/dL Hematocrit greater than or equal to 36%, Routine, What is the indication of use? Chronic Kidney Disease (CKD) documented in this encounter Care Teams Fraternity Adviser Relationship Specialty Start Date End Date Violetta Sanford MD PCP - General 04/02/14 [address] [place] [address] documented as of this encounter
--- OUTSIDE RECORDS SUMMARY | 2022-05-24 10:48 | XMS_ITS | Encounter Summary ---
:1955 Author Organization [facility] [place] [address] Care Team Providers Name Role Phone Violetta Sanford MD Primary Care Provider Encounter Details Date Type Department Care Team Description 09/16/2021 Telephone Solid Organ Transplant [place] [address] Social History Tobacco Use Types Packs/Day Years [...] Telephone Encounter - Aria Khan RN - 09/16/2021 2:12 PM EST CRITICAL/STAT RESULT NOTIFICATION TELEPHONE NOTE Date of call: 09/16/2021 Time of call: 2:12 PM Two patient identifiers: [x] Caller: External Reason for call: Critical results, calling for Lab results Test and results: Creatinine 4.1 Read back: [x] No results found for this or any previous visit (from the past 168 hour(s)). Name of Provider Notified: Alejo Garnett Provider acknowledgement: [x] Time of Notification: 2:10PM Mode of Notification: In person Plan of care: Other: Creatinine stable no follow up needed at this time. documented in this encounter Plan of Treatment Upcoming Encounters Date Type Specialty Care Team Description 05/26/2022 Office Visit Otolaryngology Ricardo Panda PA [facility] [address] [place], [place] [address] (Wo rk) 06/02/2022 Infusion Hematology and Oncology 06/16/2022 Infusion Hematology and Oncology 06/21/2022 Office Visit Neurology Tyler Rojas MD [facility] Neurology [place], [place] [phone] (Wo rk) 06/30/2022 Infusion Hematology and Oncology 07/14/2022 Infusion Hematology and Oncology 07/28/2022 Infusion Hematology and Oncology 08/11/2022 Infusion Hematology and Oncology 11/04/2022 Office Visit Rheumatology Dante Freedman PA [facility] RHEUMATOLOGY [place], [place] [address] (Wo rk) documented as of this encounter Visit Diagnoses Not on filedocumented in this encounter Care Teams Sustainable Products Marketing Manager Relationship Specialty Start Date End Date Violetta Sanford MD PCP - General 04/02/14 [address] [place] [address] documented as of this encounter
--- OUTSIDE RECORDS SUMMARY | 2022-05-24 10:49 | XMS_ITS | Encounter Summary ---
:1955 Author Organization [place] [address] Care Team Providers Name Role Phone Violetta Sanford MD Primary Care Provider Reason for Visit Reason Comments Injections Aranesp Treatment/Therapy Plan Authorization (Routine) - Authorized Specialty Diagnoses / Procedures Referred By Contact Refer red To Contact Hematology and Diagnoses CKD (chronic kidney disease) stage 4, GFR 15-29 ml/min Nicky Baez [facility] Hem Onc Office Oncology Procedures ALFREDA Ramirez MD [address] [place] [address] HEMATOLOGY/ONCOLOGY [address] 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 Torres is here for his Aranesp injection. He offers no complaints. OBJECTIVE LAB DATA: Hgb 8.5 today Pre administration: Orders independently verified for drug name, route, and dosage by Jumana Saab, SHEILA and pharmacist on-site. REACTIONS (DESCRIPTION, TIME, INTERVENTION AND EFFECTIVENESS) none ASSESSMENT Mr. Torres was awake, alert and he tolerated treatment well. PLAN Return to clinic per routine. Patient was reminded to call in the interim with any questions/concerns. documented in this encounter Plan of Treatment Upcoming Encounters Date Type Specialty Care Team Description 05/26/2022 Office Visit Otolaryngology Ricardo Panda PA [facility] [place], [place] [address] (Wo rk) 06/02/2022 Infusion Hematology and Oncology 06/16/2022 Infusion Hematology and Oncology 06/21/2022 Office Visit Neurology Tyler Rojas MD [facility] Neurology [place], [place] [phone] (Wo rk) 06/30/2022 Infusion Hematology and Oncology 07/14/2022 Infusion Hematology and Oncology 07/28/2022 Infusion Hematology and Oncology 08/11/2022 Infusion Hematology and Oncology 11/04/2022 Office Visit Rheumatology Dante Freedman PA [facility] RHEUMATOLOGY [place], [place] [address] (Wo rk) documented as of this encounter Visit Diagnoses Diagnosis CKD (chronic kidney disease) stage 4, GF R 15-29 ml/min Chronic kidney disease, Stage IV (severe ) documented in this encounter Administered Medications Inactive Administered Medications - up to 3 most recent administrations Medication Order MAR Action Action Date Dose Rate Site darbepoetin cristy-polysorbate Given 05/27/2021 1:27 PM EDT 300 mc g Right Arm (Aranesp) (300 mcg/0.6 mL) injection 300 mcg 300 mcg, Subcutaneous, ONCE, 1 dose, On Tue05/27/21 at 1315, Hold parameters for MDS and chemotherapy-induced anemia: Hemoglobin greater than or equal to 10 gm/dL Hematocrit greater than or equal to 30% Hold parameters for CKD: Hemoglobin greater than or equal to 12 gm/dL Hematocrit greater than or equal to 36%, Routine, What is the indication of use? Chronic Kidney Disease (CKD) documented in this encounter Care Teams Animal Care Service Worker Relationship Specialty Start Date End Date Violetta Sanford MD PCP - General 04/02/14 [address] [place] [address] documented as of this encounter
--- OUTSIDE RECORDS SUMMARY | 2022-05-24 10:49 | XMS_ITS | Encounter Summary ---
:1955 Author Organization [facility] [place] [address] Care Team Providers Name Role Phone Violetta Sanford MD Primary Care Provider Encounter Details Date Type Department Care Team Description 03/31/2021 Telephone Solid Organ Transpla nt at [facility] [place] [address] Social History Tobacco Use Types Packs/Day Years [...] Ricardo Panda PA [facility] er [address] [place] [address] (Wo rk) 06/02/2022 Infusion Hematology and Oncology 06/16/2022 Infusion Hematology and Oncology 06/21/2022 Office Visit Neurology Tyler Rojas MD [facility] Dr [place], [place] [address] (Wo rk) 06/30/2022 Infusion Hematology and Oncology 07/14/2022 Infusion Hematology and Oncology 07/28/2022 Infusion Hematology and Oncology 08/11/2022 Infusion Hematology and Oncology 11/04/2022 Office Visit Rheumatology Dante Freedman PA [facility] RHEUMATOLOGY [place], [place] [address] (Wo rk) documented as of this encounter Visit Diagnoses Not on filedocumented in this encounter Care Teams Box Inspector Relationship Specialty Start Date End Date Violetta Sanford MD PCP - General 04/02/14 [address] [facility] 1 [place] [address] documented as of this encounter
--- OUTSIDE RECORDS SUMMARY | 2022-05-24 10:49 | XMS_ITS | Encounter Summary ---
:1955 Author Organization [facility] [address] Care Team Providers Name Role Phone Violetta Sanford MD Primary Care Provider Encounter Details Date Type Department Care Team Description 03/06/2021 Laboratory Lab 3L Sylvia H/O kidney tilley splant; Appointment [facility] Vitamin D deficiency; Hospital [facility] current use of imm unosuppressive drug; [facility] Type 2 di abetes mellitus with hyperglycemia, with long- [place] [address] Social History Tobacco Use Types Packs/Day Years [...] 05/26/2022 Office Visit Otolaryngology Ricardo Panda PA [facility] [place] [address] (Wo rk) 06/02/2022 Infusion Hematology and Oncology 06/16/2022 Infusion Hematology and Oncology 06/21/2022 Office Visit Neurology Tyler Rojas MD [facility] er Neurology [place], [place] [phone] (Wo rk) 06/30/2022 Infusion Hematology and Oncology 07/14/2022 Infusion Hematology and Oncology 07/28/2022 Infusion Hematology and Oncology 08/11/2022 Infusion Hematology and Oncology 11/04/2022 Office Visit Rheumatology Dante Freedman PA [facility] ER RHEUMATOLOGY [place], [place] [address] (Wo rk) documented as of this encounter Procedures Procedure Name Priority Date/Time Associated Diagnosis Comme nts HC PARATHYROID Routine 03/06/2021 12:20 H/O kidney tilley splant Results for this HORMONE(PTH INTACT PM EDT Vitamin D def iciency procedure are in [facility] current use of the results immunosuppressive drug secti on. HEMOGRAM Routine 03/06/2021 12:20 H/O kidney tilley splant Results for this PM EDT Vitamin D defici ency procedure are in [employer] [employer] current use of the results immunosuppressive drug secti on. DIFFERENTIAL, Routine 03/06/2021 12:20 H/O kidney tilley splant Results for this AUTOMATED PM EDT Vitamin D defici ency procedure are in [employer] current use of the results immunosuppressive drug secti on. GOLD TUBE HOLD Routine 03/06/2021 12:20 H/O kidney tilley splant Results for this PM EDT Vitamin D defici ency procedure are in [facility] current use of the results immunosuppressive drug secti on. LAVENDER TUBE HOLD Routine 03/06/2021 12:20 H/O kidney t ransplant Results for this PM EDT Vitamin D defici ency procedure are in [facility] current use of the results immunosuppressive drug secti on. HC FK-506 Routine 03/06/2021 12:20 H/O kidney tilley splant Results for this (TACROLIMUS) PM EDT Vitamin D defici ency procedure are in [facility] current use of the results immunosuppressive drug secti on. HC PCH 1,25 DI-OH Routine 03/06/2021 12:20 H/O kidney tr ansplant Results for this VIT. PM EDT Vitamin D defici ency procedure are in [employer] current use of the results immunosuppressive drug secti on. HC VENIPUNCTURE Routine 03/06/2021 12:20 H/O kidney tilley splant Results for this PM EDT Vitamin D defici ency procedure are in [facility] current use of the results immunosuppressive drug secti on. HC RETIC,AUTO Routine 03/06/2021 12:20 H/O kidney tilley splant Results for this INCLUDES RETHE & IRF PM EDT Vitamin D d eficiency procedure are in [employer] current use of the results immunosuppressive drug secti on. HC CBC,PLT & AUTO Routine 03/06/2021 12:20 H/O kidney tr ansplant DIFF PM EDT Vitamin D defici ency [employer] current use of immunosuppressive drug HC URIC ACID, SERUM Routine 03/06/2021 12:20 H/O kidney transplant Results for this PM EDT Vitamin D defici ency procedure are in [facility] current use of the results immunosuppressive drug secti on. HC PHOSPHORUS, SERUM Routine 03/06/2021 12:20 H/O kidney transplant Results for this PM EDT Vitamin D defici ency procedure are in [facility] current use of the results immunosuppressive drug secti on. HC MAGNESIUM, SERUM Routine 03/06/2021 12:20 H/O kidney transplant Results for this PM EDT Vitamin D defici ency procedure are in [facility] current use of the results immunosuppressive drug secti on. LDL CHOLESTEROL, Routine 03/06/2021 12:20 Type 2 diabetes terri itus Results for this DIRECT PM EDT with hyperglycemia, with pro cedure are in long-term current use of the results insulin section. HC HEMOGLOBIN A1C Routine 03/06/2021 12:20 H/O kidney tr ansplant Results for this PM EDT Vitamin D defici ency procedure are in [facility] current use of the results immunosuppressive drug secti on. LIPID PANEL (REFLEX Routine 03/06/2021 12:20 H/O kidney transplant Results for this DIRECT LDL) PM EDT Vitamin D defici ency procedure are in [employer] current use of the results immunosuppressive drug secti on. COMPREHENSIVE Routine 03/06/2021 12:20 H/O kidney tilley splant Results for this METABOLIC PANEL PM EDT Vitamin D defici ency procedure are in (NON-FASTING) [employer] current use of th e results immunosuppressive drug secti on. URINALYSIS Routine 03/06/2021 12:12 Results for this MICROSCOPIC EXAM PM EDT procedure a re in the results section. HC BK VIRUS QUANT Routine 03/06/2021 12:12 H/O kidney tr ansplant Results for this PCR,URINE PM EDT Vitamin D defici ency procedure are in [facility] current use of the results immunosuppressive drug secti on. HC CALCIUM Routine 03/06/2021 12:12 H/O kidney tilley splant Results for this QUANTITATIVE, URINE PM EDT Vitamin D de ficiency procedure are in TIME SPEC 24 HR [employer] current use of the results immunosuppressive drug secti on. HC PROTEIN, Routine 03/06/2021 12:12 H/O kidney tilley splant Results for this QUANTITATIVE, URINE PM EDT Vitamin D de ficiency procedure are in [employer] current use of the results immunosuppressive drug secti on. HC PHOSPHORUS, URINE Routine 03/06/2021 12:12 H/O kidney transplant Results for this PM EDT Vitamin D defici ency procedure are in [employer] current use of the results immunosuppressive drug secti on. HC MAGNESIUM, URINE Routine 03/06/2021 12:12 H/O kidney transplant Results for this PM EDT Vitamin D defici ency procedure are in [employer] current use of the results immunosuppressive drug secti on. URINALYSIS WITH Routine 03/06/2021 12:12 H/O kidney tilley splant Results for this REFLEX CULTURE PM EDT Vitamin D defici ency procedure are in [facility] current use of the results immunosuppressive drug secti on. documented in this encounter Results Differential, Automated (03/06/2021 12:20 PM EDT) P athologist Signature Neutrophils % 63.0 % [facility] LABOR[facility]ORY Neutr Abs (ANC) 4.43 1.70 - [facility] 6.10 [facility] x10(3)/[facility] LABORATORY Lymphocytes % 25.7 % [facility] Lymphocytes Abs 1.8 0.9 - 3.2 [facility] x10(3)/[facility] LABORATORY Monocytes % 7.0 % [facility] Monocyte Abs 0.5 0.3 - 0.9 [facility] x10(3)/[facility] LABORATORY Eosinophils % 3.6 % [facility] Eosinophils Abs 0.2 0.0 - 0.4 [facility] x10(3)/[facility] LABORATORY Basophils % 0.6 % [facility] Basophils Abs 0.0 0.0 - 0.1 [facility] x10(3)/[facility] LABORATORY Immature Gran % 0.10 % [facility] Comment: Immature granulocytes(IG's)percentage an d absolute count will include metamyelocytes, myelocytes, and promyelo cytes. Blood smears from CBCs yielding IG's will be scanned manually for concor dance. If this scan disagrees with the automated IG or if promyelocytes are not ed, a manual differential will be performed. Courtney Gran Abs 0.01 0.00 - 0.04 x10(3)/[facility] LABORATORY Specimen Anatomical Collection Method Collection Time Receive d Time (Source) Location / / Volume Laterality Blood 03/06/2021 12:20 03/06/2021 PM EDT 12:25 PM EDT Resulting Agency Comment Spec In Lab Alejo Garnett MD HEMATOLOGY ORDERABLES Performing Organization Address City/State/ZIP Code Phon e Number [place] [id number] (ABNORMAL) Hemogram (03/06/2021 12:20 PM EDT) Analysis Performed At Patho logist Time Signature WBC 7.0 4.0 - 9.5 [facility] x10(3)/[facility] LABORATORY RBC 3.04 (L) 4.58 - [facility] x[facility](6[facility] LABORATORY Hemoglobin 9.1 (L) 13.7 - [facility] 16.[facility] gm/dL [facility] Hematocrit 28.8 (L) 40.5 - [facility] 48.5 % [facility] MCV 94.7 (H) 82.9 - [facility] 93.1 fL [facility] MCH 29.9 27.5 - [facility] 32.1 pg [facility] MCHC 31.6 (L) 32.0 - [facility] 35.7 gm/dL [facility] Platelets 194 145 - 357 [facility] x10(3)/[facility] LABORATORY RDWSD 47.5 (H) 36.0 - [facility] 45.0 [facility] LABORATORY RDWCV 13.8 11.4 - [facility] MPV 8.5 7.6 - 12.9 [facility] LABORATORY nRBC % Auto 0.0 % [facility] nRBC Abs Auto 0.000 0.000 - [place] 0.000 [facility] x10(3)/[facility] LABORATORY Specimen Anatomical Collection Method Collection Time Receive d Time (Source) Location / / Volume Laterality Blood 03/06/2021 12:20 03/06/2021 PM EDT 12:25 PM EDT Resulting Agency Comment Spec In Lab Alejo Garnett MD HEMATOLOGY ORDERABLES Performing Organization Address City/[facility]/ZIP Code Phon e Number [address] LDL Cholesterol, Direct (03/06/2021 12:20 PM EDT) athologist Signature LDL Chol 45 mg/dL [facility] LABORATORY Comment: Lowest Risk: <100 mg/dL Lower Risk: 100-129 mg/dL Borderline High Risk: 130-159 mg/dL High Risk: 160-189 mg/dL Very High Risk: >us=195 mg/dL Specimen Anatomical Collection Method Collection Time Receive d Time (Source) Location / / Volume Laterality Blood 03/06/2021 12:20 03/06/2021 PM EDT 12:25 PM EDT Resulting Agency Comment Spec In Lab Donell Hernandez MD CHEMISTRY ORDERABLES Performing Organization Address City/[facility] Code Phon e Number [address] 1,25-dihydroxycholecalciferol (03/06/2021 12:20 PM EDT) P athologist Signature Vit D 1,25 18 18 - 64 [facility] pg/mL [facility] Comment: ADDITIONAL INFORMATIO N This test was developed and its performa nce characteristics determined by [facility] in a manner co nsistent with CLIA requirements. This test has not been carlos ared or approved by the U.S. Food and Drug Administration. Test Performed by: [facility] - [facility] [address] [place] [address] Delivery Professional: Van White M.D. Ph. D.; CLIA# [id number] Specimen Anatomical Collection Method Collection Time Receive d Time (Source) Location / / Volume Laterality Blood 03/06/2021 12:20 03/06/2021 2:38 PM EDT PM EDT Resulting Agency Comment Spec In Lab Alejo Garnett MD CHEMISTRY ORDERABLES Performing Organization Address City/State/[place] [address] (ABNORMAL) Comprehensive metabolic panel (non-fasting) (03/06/2021 12:20 PM EDT) P athologist Signature Glucose Lvl 197 65 - 199 [facility] mg/dL [facility] Comment: Diabetes: >=200 mg/dL plus symp toms BUN 40 (H) 10 - 20 mg/dL [facility] Creatinine 3.47 (H) 0.80 - 1.50 mg/dL [facility] Sodium 139 135 - 145 mmol/L [facility] Potassium 4.8 3.5 - 5.0 mmol/L [facility] Comment: Please note: ??Patients with WBC >100,00 0 may have falsely elevated Potassium levels. ??For accurate Potassium quantif ication in these patients send serum separator tube (gold top) for subsequent determinations. ??Contact the Clinical Chemistry Laboratory if there are any qu estions. Chloride 106 98 - 107 mmol/L [facility] CO2 22 22 - 31 mmol/L [facility] Anion Gap 11 5 - 15 mmol/L [facility] Calcium 10.1 8.5 - 10.5 mg/dL [facility] Total Protein 7.4 6.1 - 8.0 gm/dL [facility] LABORATORY Albumin 3.6 3.2 - 5.2 gm/dL [facility] AST 12 0 - 39 unit/L [facility]OR[facility]ORY ALT 9 0 - 55 unit/L [facility] Alk Phos 112 40 - 130 unit/L [facility] Total Bilirubin 0.3 0.2 - 1.3 mg/dL [facility] LABORATORY Estimated GFR 17 (L) >=60 mL/min/1.73 m?? [facility] Comment: This patient? s estimated [...] (Source) Location / / Volume Laterality Blood 03/06/2021 12:20 03/06/2021 PM EDT 12:25 PM EDT Resulting Agency Comment Spec In Lab Alejo Garnett MD CHEMISTRY ORDERABLES Performing Organization Address City/State/[place] [address] Gold Tube HOLD (03/06/2021 12:20 PM EDT) P athologist Signature Gold Hold Sample in [facility] LABORATORY Specimen Anatomical Collection Method Collection Time Receive d Time (Source) Location / / Volume Laterality Blood 03/06/2021 12:20 03/06/2021 PM EDT 12:25 PM EDT Alejo Garnett MD CHEMISTRY ORDERABLES Performing Organization Address City/State/ZIP Code [place] [address] (ABNORMAL) Hemoglobin A1c (03/06/2021 12:20 PM EDT) Analysis Performed At Patho logist Time Signature Hemoglobin A1C 7.4 (H) 4.3 - 5.6 [facility] LABORATORY Comment: Reference Range: 4.3 - 5.6% [...] Mellitus, Diabetes Care 2013; 36: Suppl. 1, S67-74 Est Avg Gluc 166 mg/dL [facility] Comment: eAG equivalents for HbA1c percentages: HbA1c(%) ?eAG(mg/dL) 6.0 ?126 6.5 ?140 7.0 ?154 7.5 ?169 8.0 ?183 8.5 ?197 9.0 ?212 9.5 ?226 10.0 ? 240 Limitations: The eAG calculation has not been validated on women, individuals below 18 years old and above 70 years old, and individuals with hemoglobinopathies. Additional resources are available on ADA website. Scooby MALDONADO, Nba J, Sydnee R, et al. ??Tr anslating the A1C assay into estimated average glucose values. ??Diabetes Care 2008:31(8):2244-6634. Specimen Anatomical Collection Method Collection Time Receive d Time (Source) Location / / Volume Laterality Blood 03/06/2021 12:20 03/06/2021 PM EDT 12:25 PM EDT Resulting Agency Comment Spec In Lab Alejo Garnett MD CHEMISTRY ORDERABLES Performing Organization Address [facility] Phon e Number [address] Lavender Tube HOLD (03/06/2021 12:20 PM EDT) Patholo gist Method Time Signature Lavender Hold Sample in [facility] LABORATORY Specimen Anatomical Collection Method Collection Time Receive d Time (Source) Location / / Volume Laterality Blood 03/06/2021 12:20 03/06/2021 PM EDT 12:25 PM EDT Alejo Garnett MD HEMATOLOGY ORDERABLES Performing Organization Address City/[facility] [place] [address] Lipid Panel (Reflex Direct LDL) (03/06/2021 12:20 PM EDT) P athologist Signature Chol, Total 92 mg/dL [facility] Comment: Lower Risk: <200 mg/dL Average Risk: 200-239 mg/dL Higher Risk: >wh=373 mg/dL Triglycerides 203 mg/dL [facility] LABORATORY Comment: Average Risk/Lower Risk: <150 mg/dL Borderline High Risk: 150-199 mg/dL High Risk: 200-499 mg/dL Very High Risk: >cy=010 mg/dL HDL 21 mg/dL [facility] LAB[facility] Comment: Males: ?? Higher Risk: <40 mg/dL Females: ?? Higher Risk: <50 mg/dL LDL Cholesterol 30 mg/dL [facility] Comment: Lowest Risk: <100 mg/dL Lower Risk: 100-129 mg/dL Borderline High Risk: 130-159 mg/dL High Risk: 160-189 mg/dL Very High Risk: >dz=106 mg/dL Chol/HDL Ratio 4.4 ratio [facility]ORY Lipid Interpretation See Note [facility] Comment: Lipid management should be guided by a p atient? s ASCVD risk, goals and preferences. ACC/AHA Guidelines recommend high intens ity statin if clinical ASCVD or LDL greater than or equal to 190 mg/dL. [email or web address]/[email or web address]-[email or web address] Adults aged 40-75 with LDL 70-189 mg/dL should have their 10 year ASCVD risk estimated with the ACC/AHA ASCVD risk es timator http://tools.acc.org/ZJTGB-Sfwd-Nrdgcsfh r/ Statin should be discussed if risk [...] (Source) Location / / Volume Laterality Blood 03/06/2021 12:20 03/06/2021 PM EDT 12:25 PM EDT Resulting Agency Comment Spec In Lab Alejo Garnett MD CHEMISTRY ORDERABLES Performing Organization Address City/[facility]/ZIP Code Phon e Number [address] Magnesium (03/06/2021 12:20 PM EDT) athologist Signature Magnesium 0.69 0.69 - 1.07 [facility] mmol/L [facility] Specimen Anatomical Collection Method Collection Time Receive d Time (Source) Location / / Volume Laterality Blood 03/06/2021 12:20 03/06/2021 PM EDT 12:25 PM EDT Resulting Agency Comment Spec In Lab Alejo Garnett MD CHEMISTRY ORDERABLES Performing Organization Address City/[facility]/ZIP Code Phon e Number [address] Phosphorus (03/06/2021 12:20 PM EDT) athologist Signature Phosphorus 3.3 2.5 - 4.5 [place] mg/dL [facility] Specimen Anatomical Collection Method Collection Time Receive d Time (Source) Location / / Volume Laterality Blood 03/06/2021 12:20 03/06/2021 PM EDT 12:25 PM EDT Resulting Agency Comment Spec In Lab Alejo Garnett MD CHEMISTRY ORDERABLES Performing Organization Address City/[facility]/[place] [address] Reticulocyte Count (03/06/2021 12:20 PM EDT) P athologist Signature Retic Ct % 2.6 0.7 - 2.6 [facility] % [facility] LABORATORY Retic Ct Abs 0.080 0.030 - [facility] 0.120 [facility] x10(6)/[facility] LABORATORY Immature Retic% 14.1 0.0 - 15.6 [facility] K % [facility] Reticulated Hgb 32.5 31.3 - [facility] 40.2 pg [facility] Specimen Anatomical Collection Method Collection Time Receive d Time (Source) Location / / Volume Laterality Blood 03/06/2021 12:20 03/06/2021 PM EDT 12:25 PM EDT Resulting Agency Comment Spec In Lab Alejo Garnett MD HEMATOLOGY ORDERABLES Performing Organization Address City/[facility]/ZIP [place] [address] PTH (03/06/2021 12:20 PM EDT) P athologist Signature PTH 21 15 - 65 [facility] pg/mL [facility] Specimen Anatomical Collection Method Collection Time Receive d Time (Source) Location / / Volume Laterality Blood 03/06/2021 12:20 03/06/2021 PM EDT 12:25 PM EDT Resulting Agency Comment Spec In Lab Alejo Garnett MD CHEMISTRY ORDERABLES Performing Organization Address City/[facility]/Z[place] [address] Tacrolimus level (03/06/2021 12:20 PM EDT) P athologist Signature Tacrolimus Lvl 2.8 ng/mL [facility] Comment: Trough therapeutic range is [...] (Source) Location / / Volume Laterality Blood 03/06/2021 12:20 03/06/2021 PM EDT 12:25 PM EDT Resulting Agency Comment Spec In Lab Alejo Garnett MD CHEMISTRY ORDERABLES Performing Organization Address City/[facility]/ZIP Code Phon e Number [address] Uric acid (03/06/2021 12:20 PM EDT) P athologist Signature Uric Acid 7.5 3.5 - 8.5 [facility] mg/dL [facility] LABOR[facility]ORY Specimen Anatomical Collection Method Collection Time Receive d Time (Source) Location / / Volume Laterality Blood 03/06/2021 12:20 03/06/2021 PM EDT 12:25 PM EDT Resulting Agency Comment Spec In Lab Alejo Garnett MD CHEMISTRY ORDERABLES Performing Organization Address City/[facility]/ZIP Code Phon e Number [address] Vitamin D, 25-Hydroxy (03/06/2021 12:20 PM EDT) Patholo gist Method Time Signature 25-OH Vit D 36 21 - 100 [facility] Total ng/mL [facility] LABORATORY 25-OH Vit D Sufficient [facility] LABORATORY Specimen Anatomical Collection Method Collection Time Receive d Time (Source) Location / / Volume Laterality Blood 03/06/2021 12:20 03/06/2021 PM EDT 12:25 PM EDT Resulting Agency Comment Spec In Lab Alejo Garnett MD CHEMISTRY ORDERABLES Performing Organization Address City/State/ZIP Code Phon e Number [address] (ABNORMAL) Urinalysis Microscopic Exam (03/06/2021 12:12 PM EDT) P athologist Signature RBC UA 1 0 - 3 /HPF [facility] WBC UA 1 0 - 3 /HPF [facility] Bacteria UA Few (A) None /HPF [facility]ORY Specimen Anatomical Collection Method Collection Time Receive d Time (Source) Location / / Volume Laterality Clean Catch 03/06/2021 12:12 03/06/2021 Urine PM EDT 12:28 PM EDT Resulting Agency Comment Spec In Lab Alejo Garnett MD URINE ORDERABLES Performing Organization Address City/State/[place] [address] BKV Quant Urine (03/06/2021 12:12 PM EDT) Component Value Ref Test Analysis Performed At [facility] gist Range Method Time Signature BKV Urine Not Detected [facility] LABORATORY BKV Urine BK Virus Urine Result Interpretation [facility] Result: BK Virus not detected HOSPITAL Specimen type: urine LABORATOR Y Assay Range: 2.80-7.80 log copies/mL (6.28x10^2 - 6.28x10^7 copies/mL) Methods: Quantitative real-time polymerase chain react ion (PCR) of viral DNA isolated from plasma was performed using [employer] BKV analyte-specific reagents and the [employer] System that automates both nucleic a alonzo isolation and real-time quantitative PCR. Limitations and Disclaimers: Although un likely, rare variants or polymorphisms in BKV or related viruses have the poten tial to interfere with the performance of this test, producing false negative or false positive results. ??When test results are not consistent with other clinical observa tions or test results, alternative testing may be considered. This test was developed and its performance jing acteristics determined by the [facility] ([facility]) Laboratory at [facility]. It has not been cleared or approved by the FDA. The laboratory is regulated under CLIA as qualified to perform high-complexity testing. This elizabeth t is used for clinical purposes. It should not be regarded as investigational or fo r research. Comment: [VERIFIED DATE]03.12.21 Verified By:Brianna Cunningham (Electronic Signature) Specimen Anatomical Collection Method Collection Time Receive d Time (Source) Location / / Volume Laterality Urine 03/06/2021 12:12 03/06/2021 2:26 PM EDT PM EDT Resulting Agency Comment Spec In Lab Alejo Garnett MD MICROBIOLOGY - GENERAL ORDER STEPHANIE Performing Organization Address City/[facility]/Z[place] [address] Calcium Creatinine Ratio, random urine (03/06/2021 12:12 PM EDT) P athologist Signature U Calcium 3.6 mg/dL [facility] U Creatinine 62 mg/dL [facility] Ca/Cre Ratio 0.06 ratio [facility] Specimen Anatomical Collection Method Collection Time Receive d Time (Source) Location / / Volume Laterality Urine 03/06/2021 12:12 03/06/2021 PM EDT 12:28 PM EDT Resulting Agency Comment Spec In Lab Alejo Garnett MD URINE ORDERABLES Performing Organization Address City/[facility] [facility]/ZIP Code Phon e Number [address] Magnesium, urine, random (03/06/2021 12:12 PM EDT) P athologist Signature U Mg Ran 1.71 mmol/L [facility] Specimen Anatomical Collection Method Collection Time Receive d Time (Source) Location / / Volume Laterality Urine 03/06/2021 12:12 03/06/2021 PM EDT 12:28 PM EDT Resulting Agency Comment Spec In Lab Alejo Garnett MD URINE ORDERABLES Performing Organization Address City/[facility]/[place]IP [place] [address] Phosphorus, urine, random (03/06/2021 12:12 PM EDT) P athologist Signature U Phosphorus 29.3 mg/dL [facility] Specimen Anatomical Collection Method Collection Time Receive d Time (Source) Location / / Volume Laterality Urine 03/06/2021 12:12 03/06/2021 PM EDT 12:28 PM EDT Resulting Agency Comment Spec In Lab Alejo Garnett MD URINE ORDERABLES Performing Organization Address City/State/ZIP Code Phon e Number [address] (ABNORMAL) Protein/Creatinine Ratio, urine (03/06/2021 12:12 PM EDT) P athologist Signature U Creatinine 62 mg/dL [facility] U Protein Ran 70 (H) 0 - 12 [facility] mg/dL [facility] Prot/Cre Ratio 1.1 ratio [facility] Specimen Anatomical Collection Method Collection Time Receive d Time (Source) Location / / Volume Laterality Urine 03/06/2021 12:12 03/06/2021 PM EDT 12:28 PM EDT Resulting Agency Comment Spec In Lab Alejo Garnett MD URINE ORDERABLES Performing Organization Address City/[facility]/ZIP Code Phon e Number [address] (ABNORMAL) Urinalysis with reflex Culture (03/06/2021 12:12 PM EDT) Patholo gist Method Time Signature Glucose UA Negative Negative [facility] mg/dL [facility] Protein UA 100 (A) Negative [facility] mg/dL [facility] Bilirubin UA Negative Negative [facility] mg/dL [facility] Comment: Clinical correlation required for positi ve Urine Bilirubin results as false positive may occur with some drugs and d rug related products. If a false positive is suspected a serum total bili reyna should be considered if clinically indicated. Urobilinogen UA Normal Normal mg/dL [facility] pH UA 6.0 5.0 - 8.0 [facility] Blood UA Negative Negative mg/dL [facility] Ketones UA Negative Negative mg/dL [facility] Nitrite UA Negative Negative [facility] Leukocytes UA Negative Negative [facility] LABORATORY Appearance UA Clear Clear [facility]OR[facility] Spec [place] UA 1.013 1.005 - 1.030 [facility] Color UA Yellow Yellow [facility] Culture Reflexed No [facility] Specimen Anatomical Collection Method Collection Time Receive d Time (Source) Location / / Volume Laterality Clean Catch 03/06/2021 12:12 03/06/2021 Urine PM EDT 12:26 PM EDT Resulting Agency Comment Spec In Lab Alejo Garnett MD URINE ORDERABLES Performing Organization Address City/State/[place] [address] documented in this encounter Visit Diagnoses Diagnosis H/O kidney transplant Kidney replaced by transplant Vitamin D deficiency Unspecified vitamin D deficiency [facility] current use of immunosuppressi ve drug Type 2 diabetes mellitus with hyperglyce maki, with long-term current use of insulin documented in this encounter Care Teams Sales Clerk Relationship Specialty Start Date End Date Violetta Sanford MD PCP - General 04/02/14 [address] [place] [address] documented as of this encounter
--- OUTSIDE RECORDS SUMMARY | 2022-05-24 10:49 | XMS_ITS | Encounter Summary ---
:1955 Author Organization [facility] [place] [address] Care Team Providers Name Role Phone Violetta Sanford MD Primary Care Provider Reason for Visit Reason Onset Date Comments Labs Only 06/24/2021 Lab Tracking Encounter Details Date Type Department Care Team Description 06/24/2021 Telephone Hematology/Oncology at [facility], Labs Only (Lab Tracking) [facility] Angelica Gilbert RN [address] [place] [phone] Social History Tobacco Use Types Packs/Day [...] Telephone Encounter - Angelica Malhotra RN - 06/24/2021 1:53 PM EST LAB TRACKING Brett Dailey [id number] DIAGNOSIS: anemia d/t CKD stage IV, h/o kidney transplant LABS: CBC every 4 weeks as of 05/27/21 MEDICATIONS: Aranesp 300 mcg every 2 weeks if HGB <12 as of 05/27/21 ASSESSMENT/PLAN: Labs sent to provider for review. Will get aranesp today. Labs again in 1 month 07/22/21. Addendum: [facility] called with Critical creatinine 4.4 today- his kidney transplant MD, Dr Garnett, was made aware. Results for BRETT DAILEY ( ) as of 06/24/2021 13:58 Ref. Range 03/25/2021 00:00 04/15/2021 00:00 05/06/2021 00:00 05/27/2021 00:00 06/24/2021 00:00 WBC Unknown 7.54 9.16 7.31 6.17 6.56 Hemoglobin Unknown 8.8 8.3 8.2 8.5 8.5 Hematocrit Unknown 28.8 27.1 26.4 28.2 28.3 MCV Unknown 97.0 97.5 97.1 97.9 Platelets Unknown 182 183 199 171 155 Neutr Abs (ANC) Unknown 4.81 5.91 4.69 3.7 3.95 documented in this encounter Plan of Treatment Upcoming Encounters Date Type Specialty Care Team Description 05/26/2022 Office Visit Otolaryngology Ricardo Panda PA [facility] [address] [place] [address] (Wo rk) 06/02/2022 Infusion Hematology and Oncology 06/16/2022 Infusion Hematology and Oncology 06/21/2022 Office Visit Neurology Tyler Rojas MD [facility] Neurology [place], [place] [phone] (Wo rk) 06/30/2022 Infusion Hematology and Oncology 07/14/2022 Infusion Hematology and Oncology 07/28/2022 Infusion Hematology and Oncology 08/11/2022 Infusion Hematology and Oncology 11/04/2022 Office Visit Rheumatology Dante Freedman PA [facility] [place]HEUMATOLOGY [place], [place] [address] (Wo rk) documented as of this encounter Procedures Procedure Name Priority Date/Time Associated Diagnosis Comme nts CBC (WITH DIFF) Routine 06/24/2021 Results for this procedure are in the resu lts section. documented in this encounter Results CBC (with Diff) (06/24/2021) P athologist Signature WBC 6.56 Hemoglobin 8.5 Hematocrit 28.3 MCV 97.9 Platelets 155 Neutr Abs (ANC) 3.95 Specimen (Source) Anatomical Location Collection Method / Collectio n Time Received Time / Laterality Volume Blood Historical Provider HEMATOLOGY ORDERABLES documented in this encounter Visit Diagnoses Not on filedocumented in this encounter Care Teams Clothing And Textiles Teacher Relationship Specialty Start Date End Date Violetta Sanford MD PCP - General 04/02/14 [address] [place] [address] documented as of this encounter
--- OUTSIDE RECORDS SUMMARY | 2022-05-24 10:49 | XMS_ITS | Encounter Summary ---
:1955 Author Organization [facility] [place] [address] Care Team Providers Name Role Phone Violetta Sanford MD Primary Care Provider Reason for Visit Reason Comments Injections Aranesp Treatment/Therapy Plan Authorization (Routine) - Authorized Specialty Diagnoses / Procedures Referred By Contact Refer red To Contact Hematology and Diagnoses CKD (chronic kidney disease) stage 4, GFR 15-29 ml/min Nicky Baez [facility] Hem Onc Office Oncology Procedures ALFREDA Ramirez MD [address] [place] [address] HEMATOLOGY/ONCOLOGY [id number] [place] [address] Referral ID Status Reason Start Date Expiration Date Visits V isits Requested Authorized [id number] Authorized 10/08/2020 06/23/2022 99 99 Encounter Details Date Type Department Care Team Description 08/19/2021 Infusion Hematology Oncology at [facility] D (chronic kidney disease) [facility] stage 4, GFR 15-29 ml/min [address] [place] [phone] Social History Tobacco Use Types [...] Sign Reading Time Taken Comments Blood Pressure 153/69 08/19/2021 4:13 PM EST Pulse 73 08/19/2021 4:13 PM EST Temperature 36.9 ??C (98.4 ??F) 08/19/2021 4:13 PM EST Respiratory Rate 18 08/19/2021 4:13 PM EST Oxygen Saturation 100% 08/19/2021 4:13 PM EST Inhaled Oxygen Concentration - - Weight - - Height - - Body Mass Index - - documented in this encounter Progress Notes Jumana Saab RN - 08/19/2021 2:00 PM EST Infusion Note Diagnosis: CKD anemia Treatment: Aranesp Injection Labs: Done monthly at [facility], 08/19/21 - H/H - 9.6/31.7 Aranesp 300 mcg injected in right arm. Patient aware to call clinic with any questions or concerns. Plan: Return to clinic as scheduled. documented in this encounter Plan of Treatment Upcoming Encounters Date Type Specialty Care Team Description 05/26/2022 Office Visit Otolaryngology Ricardo Panda PA [facility] Dr [address] [place] [address] (Oscar escobedo) 06/02/2022 Infusion Hematology and Oncology 06/16/2022 Infusion Hematology and Oncology 06/21/2022 Office Visit Neurology Tyler Rojas MD [facility] Neurology [place], [place] [phone] (Wo gregg) 06/30/2022 Infusion Hematology and Oncology 07/14/2022 Infusion Hematology and Oncology 07/28/2022 Infusion Hematology and Oncology 08/11/2022 Infusion Hematology and Oncology 11/04/2022 Office Visit Rheumatology Dante Freedman PA [facility] RHEUMATOLOGY [place] [address] (Wo rk) documented as of this encounter Visit Diagnoses Diagnosis CKD (chronic kidney disease) stage 4, GF R 15-29 ml/min Chronic kidney disease, Stage IV (severe ) documented in this encounter Administered Medications Inactive Administered Medications - up to 3 most recent administrations Medication Order MAR Action Action Date Dose Rate Site darbepoetin cristy-polysorbate Given 08/19/2021 4:14 PM EST 300 mc g Right Arm (Aranesp) (300 mcg/0.6 mL) injection 300 mcg 300 mcg, Subcutaneous, ONCE, 1 dose, On Tue08/19/21 at 1600, Hold parameters for MDS and chemotherapy-induced anemia: Hemoglobin greater than or equal to 10 gm/dL Hematocrit greater than or equal to 30% Hold parameters for CKD: Hemoglobin greater than or equal to 12 gm/dL Hematocrit greater than or equal to 36%, Routine, What is the indication of use? Chronic Kidney Disease (CKD) documented in this encounter Care Teams Salad Counter Attendant Relationship Specialty Start Date End Date Violetta Sanford MD PCP - General 04/02/14 [address] [place] [address] documented as of this encounter
--- OUTSIDE RECORDS SUMMARY | 2022-05-24 10:49 | XMS_ITS | Encounter Summary ---
:1955 Author Organization [facility] [address] Care Team Providers Name Role Phone Violetta Sanford MD Primary Care Provider Reason for Visit Reason Comments Injections SQ Aranesp Treatment/Therapy Plan Authorization (Routine) - Authorized Specialty Diagnoses / Procedures Referred By Contact Refer red To Contact Hematology and Diagnoses CKD (chronic kidney disease) stage 4, GFR 15-29 ml/min Nicky Baez [facility] Hem Onc Office Oncology Procedures ALFREDA Ramirez MD [address] [place] [address] HEMATOLOGY/ONCOLOGY [phone] [place] [address] Referral ID Status Reason Start Date Expiration Date Visits V isits Requested Authorized [id number] Authorized 10/08/2020 06/23/2022 99 99 Encounter Details Date Type Department Care Team Description 07/08/2021 Infusion Hematology Oncology at [facility] D (chronic kidney disease) [facility] stage 4, GFR 15-29 ml/min [address] [place] [phone] Social History Tobacco Use Types [...] Sign Reading Time Taken Comments Blood Pressure 159/63 07/08/2021 1:45 PM EST Pulse 71 07/08/2021 1:45 PM EST Temperature 36.7 ??C (98 ??F) 07/08/2021 1:45 PM EST Respiratory Rate 20 07/08/2021 1:45 PM EST Oxygen Saturation 100% 07/08/2021 1:45 PM EST Inhaled Oxygen Concentration - - Weight - - Height - - Body Mass Index - - documented in this encounter Progress Notes Millie Kc RN - 07/08/2021 2:00 PM EST Infusion Note Diagnosis: CKD anemia Treatment: Aranesp Injection Labs: 06/24/21 - H/H - 8.5/28.3. Patient stated that Dr. Baez ordered labs monthly. Aranesp 300 mcg injected in right arm. Patient aware to call clinic with any questions or concerns. Plan: Return to clinic as scheduled. documented in this encounter Plan of Treatment Upcoming Encounters Date Type Specialty Care Team Description 05/26/2022 Office Visit Otolaryngology Ricardo Panda PA [facility] [address] [place] [address] (Oscar escobedo) 06/02/2022 Infusion Hematology and Oncology 06/16/2022 Infusion Hematology and Oncology 06/21/2022 Office Visit Neurology Tyler Rojas MD [facility] Dr Sofi [place] [phone] (Wo rk) 06/30/2022 Infusion Hematology and Oncology 07/14/2022 Infusion Hematology and Oncology 07/28/2022 Infusion Hematology and Oncology 08/11/2022 Infusion Hematology and Oncology 11/04/2022 Office Visit Rheumatology Dante Freedman PA [facility] RHEUMATOLOGY [place], [place] [address] (Wo rk) documented as of this encounter Visit Diagnoses Diagnosis CKD (chronic kidney disease) stage 4, GF R 15-29 ml/min Chronic kidney disease, Stage IV (severe ) documented in this encounter Administered Medications Inactive Administered Medications - up to 3 most recent administrations Medication Order MAR Action Action Date Dose Rate Site darbepoetin cristy-polysorbate Given 07/08/2021 2:15 PM EST 300 mc g Right Arm (Aranesp) (300 mcg/0.6 mL) injection 300 mcg 300 mcg, Subcutaneous, ONCE, 1 dose, On Tue07/08/21 at 1415, Hold parameters for MDS and chemotherapy-induced anemia: Hemoglobin greater than or equal to 10 gm/dL Hematocrit greater than or equal to 30% Hold parameters for CKD: Hemoglobin greater than or equal to 12 gm/dL Hematocrit greater than or equal to 36%, Routine, What is the indication of use? Chronic Kidney Disease (CKD) documented in this encounter Care Teams Logistics Supervisor Relationship Specialty Start Date End Date Violetta Sanford MD PCP - General 04/02/14 [address] [place] [address] documented as of this encounter
--- OUTSIDE RECORDS SUMMARY | 2022-05-24 10:49 | XMS_ITS | Encounter Summary ---
:1955 Author Organization [facility] [place] [address] Care Team Providers Name Role Phone Violetta Sanford MD Primary Care Provider Encounter Details Date Type Department Care Team Description 08/07/2021 Orders Only Endocrinology at [facility] Donell Hernandez MD [facility] [place] [address] ENDOCRINOLOGY DEPT. [phone] [place], [place] [address] (Wo rk) Social History Tobacco [...] PA [facility] [address] [place] [address] (Wo rk) 06/02/2022 Infusion Hematology and Oncology 06/16/2022 Infusion Hematology and Oncology 06/21/2022 Office Visit Neurology Tyler Rojas MD [facility] Neurology [place], [place] [phone] (Wo rk) 06/30/2022 Infusion Hematology and Oncology 07/14/2022 Infusion Hematology and Oncology 07/28/2022 Infusion Hematology and Oncology 08/11/2022 Infusion Hematology and Oncology 11/04/2022 Office Visit Rheumatology Dante Freedman PA [facility] RHEUMATOLOGY [place], [place] [address] (Wo rk) documented as of this encounter Visit Diagnoses Not on filedocumented in this encounter Care Teams Lathe Spotter Relationship Specialty Start Date End Date Violetta Sanford MD PCP - General 04/02/14 [address] [place] [address] documented as of this encounter
--- OUTSIDE RECORDS SUMMARY | 2022-05-24 10:49 | XMS_ITS | Encounter Summary ---
:1955 Author Organization [place] [address] Care Team Providers Name Role Phone Violetta Sanford MD Primary Care Provider Reason for Visit Reason Onset Date Comments Medication Refill 05/21/2021 Encounter Details Date Type Department Care Team Description 05/21/2021 Refill Endocrinology at [facility] [place] [phone] Social History Tobacco Use Types Packs/Day Years [...] Panda PA [facility] Dr [place] [address] (Wo rk) 06/02/2022 Infusion Hematology and Oncology 06/16/2022 Infusion Hematology and Oncology 06/21/2022 Office Visit Neurology Tyler Rojas MD [facility] Dr [place] [phone] (Wo rk) 06/30/2022 Infusion Hematology and Oncology 07/14/2022 Infusion Hematology and Oncology 07/28/2022 Infusion Hematology and Oncology 08/11/2022 Infusion Hematology and Oncology 11/04/2022 Office Visit Rheumatology Dante Freedman PA [facility] RHEUMATOLOGY [place], [place] [address] (Wo rk) documented as of this encounter Visit Diagnoses Not on filedocumented in this encounter Care Teams Edge Worker Relationship Specialty Start Date End Date Violetta Sanford MD PCP - General 04/02/14 [address] [place] [address] documented as of this encounter
--- OUTSIDE RECORDS SUMMARY | 2022-05-24 10:49 | XMS_ITS | Encounter Summary ---
:1955 Author Organization [facility] [place] [address] Care Team Providers Name Role Phone Violetta Sanford MD Primary Care Provider Encounter Details Date Type Department Care Team Description 03/04/2021 Orders Only Solid Organ Transplant Aria Khan H /O kidney transplant; [facility] Gilbert Immunosuppression; [facility] [place] [phone] Social History Tobacco Use Types Packs/Day [...] 05/26/2022 Office Visit Otolaryngology Ricardo Panda PA [facility] er Dr [place] [address] (Wo rk) 06/02/2022 Infusion Hematology and Oncology 06/16/2022 Infusion Hematology and Oncology 06/21/2022 Office Visit Neurology Tyler Rojas MD [facility] Dr [place] [phone] (Wo rk) 06/30/2022 Infusion Hematology and Oncology 07/14/2022 Infusion Hematology and Oncology 07/28/2022 Infusion Hematology and Oncology 08/11/2022 Infusion Hematology and Oncology 11/04/2022 Office Visit Rheumatology Dante Freedman PA [facility] RHEUMATOLOGY [place], [place] [address] (Wo rk) documented as of this encounter Visit Diagnoses Diagnosis H/O kidney transplant Kidney replaced by transplant Immunosuppression Unspecified disorder of immune mechanism Vitamin D deficiency Unspecified vitamin D deficiency documented in this encounter Care Teams Furniture Sales Associate Relationship Specialty Start Date End Date Violetta Sanford MD PCP - General 04/02/14 [address] [place] [address] documented as of this encounter
--- OUTSIDE RECORDS SUMMARY | 2022-05-24 10:49 | XMS_ITS | Encounter Summary ---
:1955 Author Organization [facility] [place] [address] Care Team Providers Name Role Phone Violetta Sanford MD Primary Care Provider Reason for Visit Reason Comments Injections Aranesp Treatment/Therapy Plan Authorization (Routine) - Authorized Specialty Diagnoses / Procedures Referred By Contact Refer red To Contact Hematology and Diagnoses CKD (chronic kidney disease) stage 4, GFR 15-29 ml/min Nicky Baez [facility] Hem Onc Office Oncology Procedures ALFREDA Ramirez MD [address] [place] [address] HEMATOLOGY/ONCOLOGY [phone] [place] [address] Referral ID Status Reason Start Date Expiration Date Visits V isits Requested Authorized [id number] Authorized 10/08/2020 06/23/2022 99 99 Encounter Details Date Type Department Care Team Description 05/06/2021 Infusion Hematology Oncology at [facility] D (chronic kidney disease) [facility] stage 4, GFR 15-29 ml/min [address] [place] [phone] Social History Tobacco Use Types [...] Sign Reading Time Taken Comments Blood Pressure 145/55 05/06/2021 1:38 PM EDT Pulse 68 05/06/2021 1:38 PM EDT Temperature 37 ??C (98.6 ??F) 05/06/2021 1:38 PM EDT Respiratory Rate 16 05/06/2021 1:38 PM EDT Oxygen Saturation 98% 05/06/2021 1:38 PM EDT Inhaled Oxygen Concentration - - Weight - - Height - - Body Mass Index - - documented in this encounter Progress Notes Sudha Lamb RN - 05/06/2021 12:30 PM EDT INFUSION THERAPY ADMINISTRATION NOTES DIAGNOSIS: Anemia due to CKD Stage IV, history of kidney transplant REASON FOR VISIT: Aranesp Injection SUBJECTIVE Mr. Torres is here for his Aranesp injection. He offers no complaints. OBJECTIVE LAB DATA: Hgb 8.2 today Pre administration: Orders independently verified for drug name, route, and dosage by SUDHA LAMB RN and pharmacist on-site. REACTIONS (DESCRIPTION, TIME, INTERVENTION AND EFFECTIVENESS) none ASSESSMENT Mr. Torres was awake, alert and he tolerated treatment well. PLAN Return to clinic per routine. Patient was reminded to call in the interim with any questions/concerns. documented in this encounter Plan of Treatment Upcoming Encounters Date Type Specialty Care Team Description 05/26/2022 Office Visit Otolaryngology Ricardo Panda PA [facility] Dr [address] [place] [address] (Oscar escobedo) 06/02/2022 Infusion Hematology and Oncology 06/16/2022 Infusion Hematology and Oncology 06/21/2022 Office Visit Neurology Tyler Rojas MD [facility] Dr [address]i [place] [phone] (Wo rk) 06/30/2022 Infusion Hematology and Oncology 07/14/2022 Infusion Hematology and Oncology 07/28/2022 Infusion Hematology and Oncology 08/11/2022 Infusion Hematology and Oncology 11/04/2022 Office Visit Rheumatology Dante Freedman PA [facility] RHEUMATOLOGY [place], [place] [address] (Wo rk) documented as of this encounter Visit Diagnoses Diagnosis CKD (chronic kidney disease) stage 4, GF R 15-29 ml/min Chronic kidney disease, Stage IV (severe ) documented in this encounter Administered Medications Inactive Administered Medications - up to 3 most recent administrations Medication Order MAR Action Action Date Dose Rate Site darbepoetin cristy-polysorbate Given 05/06/2021 2:27 PM EDT 300 mc g Right Arm (Aranesp) (300 mcg/0.6 mL) injection 300 mcg 300 mcg, Subcutaneous, ONCE, 1 dose, On Tue05/06/21 at 1430, Hold parameters for MDS and chemotherapy-induced anemia: Hemoglobin greater than or equal to 10 gm/dL Hematocrit greater than or equal to 30% Hold parameters for CKD: Hemoglobin greater than or equal to 12 gm/dL Hematocrit greater than or equal to 36%, Routine, What is the indication of use? Chronic Kidney Disease (CKD) documented in this encounter Care Teams Sound Recording Technician Relationship Specialty Start Date End Date Violetta Sanford MD PCP - General 04/02/14 [facility] [address] [place] [address] documented as of this encounter
--- OUTSIDE RECORDS SUMMARY | 2022-05-24 10:49 | XMS_ITS | Encounter Summary ---
:1955 Author Organization [facility] [place] [address] Care Team Providers Name Role Phone Violetta Sanford MD Primary Care Provider Reason for Visit Reason Onset Date Comments Pump/sensor 04/02/2021 Encounter Details Date Type Department Care Team Description 04/02/2021 Telephone Endocrinology at [facility] Leny Kohler Pump/[place] [address] Social History Tobacco Use Types Packs/Day [...] Notes Telephone Encounter - Leny Morales - 04/02/2021 7:37 AM EDT Documentation request received from [facility]. 10/28/20 & 03/06/21 office notes routed Confirmed 04/02 documented in this encounter Plan of Treatment Upcoming Encounters Date Type Specialty Care Team Description 05/26/2022 Office Visit Otolaryngology Ricardo Panda PA [facility] [place], [place] [address] (Wo rk) 06/02/2022 Infusion Hematology and Oncology 06/16/2022 Infusion Hematology and Oncology 06/21/2022 Office Visit Neurology Tyler Rojas MD [facility] Neurology [place], [place] [phone] (Wo rk) 06/30/2022 Infusion Hematology and Oncology 07/14/2022 Infusion Hematology and Oncology 07/28/2022 Infusion Hematology and Oncology 08/11/2022 Infusion Hematology and Oncology 11/04/2022 Office Visit Rheumatology Dante Freedman PA [facility] RHEUMATOLOGY [place], [place] [address] (Wo rk) documented as of this encounter Visit Diagnoses Not on filedocumented in this encounter Care Teams Transfer Car Operator Drier Relationship Specialty Start Date End Date Violetta Sanford MD PCP - General 04/02/14 [address] [place] [address] documented as of this encounter
--- OUTSIDE RECORDS SUMMARY | 2022-05-24 10:49 | XMS_ITS | Encounter Summary ---
:1955 Author Organization [facility] [place] [address] Care Team Providers Name Role Phone Violetta Sanford MD Primary Care Provider Reason for Visit Reason Comments Medication Refill Encounter Details Date Type Department Care Team Description 06/22/2021 Refill Solid Organ Transplant at [facility] Alejo france MD [facility] Giovana tyler [place] [address] [place] [address] [phone] (Wo rk) Social History Tobacco Use Types [...] Ricardo Panda PA [facility] [address] [place], [place] [address] (Wo rk) 06/02/2022 Infusion Hematology and Oncology 06/16/2022 Infusion Hematology and Oncology 06/21/2022 Office Visit Neurology Tyler Rojas MD [facility] Medical [facility] er Neurology [place], [place] [phone] (Wo rk) 06/30/2022 Infusion Hematology and Oncology 07/14/2022 Infusion Hematology and Oncology 07/28/2022 Infusion Hematology and Oncology 08/11/2022 Infusion Hematology and Oncology 11/04/2022 Office Visit Rheumatology Dante Freedman PA [facility] RHEUMATOLOGY [place], [place] [address] (Wo rk) documented as of this encounter Visit Diagnoses Not on filedocumented in this encounter Care Teams Production Mechanic Tin Cans Relationship Specialty Start Date End Date Violetta Sanford MD PCP - General 04/02/14 [address] [place] [address] documented as of this encounter
--- OUTSIDE RECORDS SUMMARY | 2022-05-24 10:49 | XMS_ITS | Encounter Summary ---
:1955 Author Organization [facility] [place] [address] Care Team Providers Name Role Phone Violetta Sanford MD Primary Care Provider Encounter Details Date Type Department Care Team Description 08/06/2021 Telephone Endocrinology at [facility] Crissy Mesa, [facility] [place] [address] Social History Tobacco Use Types Packs/Day Years [...] this encounter Miscellaneous Notes Telephone Encounter - Crissy Mesa RN - 08/06/2021 12:12 PM EST Norma from [employer] called. Medicare will not cover insulin supplies without ICD 10 codes, and must say 4 times a day usage. Returned Norma's call with ICD code E11.9 Sensors changed from at least 5 times a day to at least 4 times a day for Medicare coverage. documented in this encounter Plan of Treatment Upcoming Encounters Date Type Specialty Care Team Description 05/26/2022 Office Visit Otolaryngology Ricardo Panda PA [facility] [address] [place], [place] [address] (Wo rk) 06/02/2022 Infusion Hematology and Oncology 06/16/2022 Infusion Hematology and Oncology 06/21/2022 Office Visit Neurology Tyler Rojas MD [facility] Neurology [place], [place] [phone] (Wo rk) 06/30/2022 Infusion Hematology and Oncology 07/14/2022 Infusion Hematology and Oncology 07/28/2022 Infusion Hematology and Oncology 08/11/2022 Infusion Hematology and Oncology 11/04/2022 Office Visit Rheumatology Dante Freedman PA [facility] RHEUMATOLOGY [place], [place] [address] (Wo rk) documented as of this encounter Visit Diagnoses Not on filedocumented in this encounter Care Teams Cyber Crime Investigator Relationship Specialty Start Date End Date Violetta Sanford MD PCP - General 04/02/14 [facility] ALONDRA [address] [place] [address] documented as of this encounter
--- OUTSIDE RECORDS SUMMARY | 2022-05-24 10:49 | XMS_ITS | Encounter Summary ---
:1955 Author Organization [facility] [place] [address] Care Team Providers Name Role Phone Violetta Sanford MD Primary Care Provider Reason for Visit Reason Comments Injections Aranesp Treatment/Therapy Plan Authorization (Routine) - Authorized Specialty Diagnoses / Procedures Referred By Contact Refer red To Contact Hematology and Diagnoses CKD (chronic kidney disease) stage 4, GFR 15-29 ml/min Nicky Baez [facility] Hem Onc Office Oncology Procedures ALFREDA Ramirez MD [address] [place] [address] HEMATOLOGY/ONCOLOGY [id number] [place] [address] Referral ID Status Reason Start Date Expiration Date Visits V isits Requested Authorized [id number] Authorized 10/08/2020 06/23/2022 99 99 Encounter Details Date Type Department Care Team Description 06/24/2021 Infusion Hematology Oncology at [facility] D (chronic kidney disease) [facility] stage 4, GFR 15-29 ml/min [address] [place] [phone] Social History Tobacco Use Types [...] Sign Reading Time Taken Comments Blood Pressure 151/51 06/24/2021 1:33 PM EST Pulse 79 06/24/2021 1:33 PM EST Temperature 36.6 ??C (97.8 ??F) 06/24/2021 1:33 PM EST Respiratory Rate 20 06/24/2021 1:33 PM EST Oxygen Saturation 100% 06/24/2021 1:33 PM EST Inhaled Oxygen Concentration - - Weight - - Height - - Body Mass Index - - documented in this encounter Progress Notes Jumana Saab RN - 06/24/2021 2:00 PM EST INFUSION THERAPY ADMINISTRATION NOTES DIAGNOSIS: Anemia due [...] 05/26/2022 Office Visit Otolaryngology Ricardo Panda PA [facility] Medical [facility] [address] [place] [address] (Oscar escobedo) 06/02/2022 Infusion Hematology and Oncology 06/16/2022 Infusion Hematology and Oncology 06/21/2022 Office Visit Neurology Tyler Rojas MD [facility] Dr [place]i [place], [place] [phone] (Oscar escobedo) 06/30/2022 Infusion Hematology and Oncology 07/14/2022 Infusion Hematology and Oncology 07/28/2022 Infusion Hematology and Oncology 08/11/2022 Infusion Hematology and Oncology 11/04/2022 Office Visit Rheumatology Dante Freedman PA [facility] RHEUMATOLOGY [place] [address] (Wo rk) documented as of this encounter Visit Diagnoses Diagnosis CKD (chronic kidney disease) stage 4, GF R 15-29 ml/min Chronic kidney disease, Stage IV (severe ) documented in this encounter Administered Medications Inactive Administered Medications - up to 3 most recent administrations Medication Order MAR Action Action Date Dose Rate Site darbepoetin cristy-polysorbate Given 06/24/2021 2:04 PM EST 300 mc g Right Arm (Aranesp) (300 mcg/0.6 mL) injection 300 mcg 300 mcg, Subcutaneous, ONCE, 1 dose, On Tue06/24/21 at 1400, Hold parameters for MDS and chemotherapy-induced anemia: Hemoglobin greater than or equal to 10 gm/dL Hematocrit greater than or equal to 30% Hold parameters for CKD: Hemoglobin greater than or equal to 12 gm/dL Hematocrit greater than or equal to 36%, Routine, What is the indication of use? Chronic Kidney Disease (CKD) documented in this encounter Care Teams Psych Social Worker Relationship Specialty Start Date End Date Violetta Sanford MD PCP - General 04/02/14 [address] [place] [address] documented as of this encounter
--- OUTSIDE RECORDS SUMMARY | 2022-05-24 10:49 | XMS_ITS | Encounter Summary ---
:1955 Author Organization [facility] [place] [address] Care Team Providers Name Role Phone Violetta Sanford MD Primary Care Provider Reason for Visit Reason Comments Injections Aranesp Treatment/Therapy Plan Authorization (Routine) - Authorized Specialty Diagnoses / Procedures Referred By Contact Refer red To Contact Hematology and Diagnoses CKD (chronic kidney disease) stage 4, GFR 15-29 ml/min Nicky Baez [facility] Hem Onc Office Oncology Procedures ALFREDA Ramirez MD [address] [place] [address] HEMATOLOGY/ONCOLOGY [id number] [place] [address] Referral ID Status Reason Start Date Expiration Date Visits V isits Requested Authorized [id number] Authorized 10/08/2020 06/23/2022 99 99 Encounter Details Date Type Department Care Team Description 08/05/2021 Infusion Hematology Oncology at [facility] D (chronic kidney disease) [facility] stage 4, GFR 15-29 ml/min [address] [place] [phone] Social History Tobacco Use Types [...] Sign Reading Time Taken Comments Blood Pressure 132/41 08/05/2021 1:38 PM EST Pulse 69 08/05/2021 1:38 PM EST Temperature 36.8 ??C (98.2 ??F) 08/05/2021 1:38 PM EST Respiratory Rate 16 08/05/2021 1:38 PM EST Oxygen Saturation 100% 08/05/2021 1:38 PM EST Inhaled Oxygen Concentration - - Weight - - Height - - Body Mass Index - - documented in this encounter Progress Notes Angelica Malhotra RN - 08/05/2021 2:00 PM EST Infusion Note Diagnosis: CKD anemia Treatment: Aranesp Injection Labs: Done monthly at [facility], 07/22/21 - H/H - 9.0/30.3 Aranesp 300 mcg injected in right arm. Patient aware to call clinic with any questions or concerns. Plan: Return to clinic as scheduled. documented in this encounter Plan of Treatment Upcoming Encounters Date Type Specialty Care Team Description 05/26/2022 Office Visit Otolaryngology Ricardo Panda PA [facility] [address] [place] [address] (Oscar escobedo) 06/02/2022 Infusion Hematology and Oncology 06/16/2022 Infusion Hematology and Oncology 06/21/2022 Office Visit Neurology Tyler Rojas MD [facility] Dr [place]i [place], [place] [phone] (Wo gregg) 06/30/2022 Infusion Hematology and Oncology 07/14/2022 Infusion Hematology and Oncology 07/28/2022 Infusion Hematology and Oncology 08/11/2022 Infusion Hematology and Oncology 11/04/2022 Office Visit Rheumatology Dante Freedman PA [facility] RHEUMATOLOGY [place], [place] [address] (Wo rk) documented as of this encounter Visit Diagnoses Diagnosis CKD (chronic kidney disease) stage 4, GF R 15-29 ml/min Chronic kidney disease, Stage IV (severe ) documented in this encounter Administered Medications Inactive Administered Medications - up to 3 most recent administrations Medication Order MAR Action Action Date Dose Rate Site darbepoetin cristy-polysorbate Given 08/05/2021 1:42 PM EST 300 mc g Right Arm (Aranesp) (300 mcg/0.6 mL) injection 300 mcg 300 mcg, Subcutaneous, ONCE, 1 dose, On Tue08/05/21 at 1400, Hold parameters for MDS and chemotherapy-induced anemia: Hemoglobin greater than or equal to 10 gm/dL Hematocrit greater than or equal to 30% Hold parameters for CKD: Hemoglobin greater than or equal to 12 gm/dL Hematocrit greater than or equal to 36%, Routine, What is the indication of use? Chronic Kidney Disease (CKD) documented in this encounter Care Teams Military Pilot Relationship Specialty Start Date End Date Violetta Sanford MD PCP - General 04/02/14 [address] [place] [address] documented as of this encounter
--- OUTSIDE RECORDS SUMMARY | 2022-05-24 10:49 | XMS_ITS | Encounter Summary ---
:1955 Author Organization [facility] [place] [address] Care Team Providers Name Role Phone Violetta Sanford MD Primary Care Provider Reason for Visit Reason Onset Date Comments Follow-up 05/11/2021 Encounter Details Date Type Department Care Team Description 05/11/2021 Telephone [place] [facility] [place] [address] Social History Tobacco Use Types Packs/Day [...] this encounter Miscellaneous Notes Telephone Encounter - Wes Wise RN - 05/11/2021 12:35 PM EDT Reuben calls to advise the shot he had did not help at all. documented in this encounter Plan of Treatment Upcoming Encounters Date Type Specialty Care Team Description 05/26/2022 Office Visit Otolaryngology Ricardo Panda PA [facility] [place], [place] [address] (Wo rk) 06/02/2022 Infusion Hematology and Oncology 06/16/2022 Infusion Hematology and Oncology 06/21/2022 Office Visit Neurology Tyler Rojas MD [facility] Neurology [place], [place] [phone] (Wo rk) 06/30/2022 Infusion Hematology and Oncology 07/14/2022 Infusion Hematology and Oncology 07/28/2022 Infusion Hematology and Oncology 08/11/2022 Infusion Hematology and Oncology 11/04/2022 Office Visit Rheumatology Dante Freedman PA [facility] [place]ATOLOGY [place], [place] [address] (Wo rk) documented as of this encounter Visit Diagnoses Not on filedocumented in this encounter Care Teams Conductor Pullman Relationship Specialty Start Date End Date Violetta Sanford MD PCP - General 04/02/14 [address]ino [address] [place] [address] documented as of this encounter
--- OUTSIDE RECORDS SUMMARY | 2022-05-24 10:49 | XMS_ITS | Encounter Summary ---
:1955 Author Organization [facility] Address [facility] [place] [address] Care Team Providers Name Role Phone Violetta Sanford MD Primary Care Provider Reason for Visit Reason Onset Date Comments Medication Refill 03/05/2021 Encounter Details Date Type Department Care Team Description 03/05/2021 Refill Solid Organ Alejo Garnett H/Sania toure y transplant; Transplant at [facility] MD Thang Vitamin D deficiency; [facility] Nadri g term current use of immunosuppressive drug Drive [place] [address] [place] [address] [phone] Social History Tobacco Use Types Packs/Day Years [...] Visit Otolaryngology Ricardo Panda PA [facility] [address] [place], [place] [address] (Wo rk) 06/02/2022 Infusion Hematology and Oncology 06/16/2022 Infusion Hematology and Oncology 06/21/2022 Office Visit Neurology Tyler Rojas MD [facility] er Dr Neurology [place], [place] [phone] (Wo rk) 06/30/2022 Infusion Hematology and Oncology 07/14/2022 Infusion Hematology and Oncology 07/28/2022 Infusion Hematology and Oncology 08/11/2022 Infusion Hematology and Oncology 11/04/2022 Office Visit Rheumatology Dante Freedman PA [facility] RHEUMATOLOGY [place], [place] [address] (Wo rk) documented as of this encounter Results Tacrolimus level (03/06/2021 12:20 PM EDT) athologist Signature Tacrolimus Lvl 2.8 ng/mL [facility] Comment: [...] Organization Address City/State/[place] [address] Lavender Tube HOLD (03/06/2021 12:20 PM EDT) Patholo gist Method Time Signature Lavender Hold Sample in [facility] LABORATORY Specimen Anatomical Collection Method Collection Time Receive d Time (Source) Location / / Volume Laterality Blood 03/06/2021 12:20 03/06/2021 PM EDT 12:25 PM EDT Alejo Garnett MD HEMATOLOGY ORDERABLES Performing Organization Address City/[facility]/ZIP Code Phon e Number [address] Gold Tube HOLD (03/06/2021 12:20 PM EDT) athologist Signature Gold Hold Sample in [facility]. [facility] Specimen Anatomical Collection Method Collection Time Receive d Time (Source) Location / / Volume Laterality Blood 03/06/2021 12:20 03/06/2021 PM EDT 12:25 PM EDT Alejo Garnett MD CHEMISTRY ORDERABLES Performing Organization Address City/[facility] Code Phon e Number [address] 1,25-dihydroxycholecalciferol (03/06/2021 12:20 PM EDT) athologist Signature Vit D 1,25 18 18 - 64 [facility] pg/mL [facility] Comment: ADDITIONAL INFORMATIO N This test was developed and its performa nce characteristics determined by [facility] in a manner co nsistent with CLIA requirements. This test has not been carlos ared or approved by the U.S. Food and Drug Administration. Test Performed by: [facility] [address] [place] [address] Pitch Worker: Van White M.D. Ph. D.; CLIA# [id number] Specimen Anatomical Collection Method Collection Time Receive d Time (Source) Location / / Volume Laterality Blood 03/06/2021 12:20 03/06/2021 2:38 PM EDT PM EDT Resulting Agency Comment Spec In Lab Alejo Garnett MD CHEMISTRY ORDERABLES Performing Organization Address City/[facility]/ZIP Code Phon e Number [address] Vitamin D, 25-Hydroxy (03/06/2021 12:20 PM EDT) [facility] Method Time Signature 25-OH Vit D 36 21 - 100 [facility] Total ng/mL [facility] 25-OH Vit D Sufficient [facility] Interp [facility] Specimen Anatomical Collection Method Collection Time Receive d Time (Source) Location / / Volume Laterality Blood 03/06/2021 12:20 03/06/2021 PM EDT 12:25 PM EDT Resulting Agency Comment Spec In Lab Alejo Garnett MD CHEMISTRY ORDERABLES Performing Organization Address City/State/ZIP Code Phon e Number [address] PTH (03/06/2021 12:20 PM EDT) P athologist Signature PTH 21 15 - 65 [facility] pg/mL [facility] Specimen Anatomical Collection Method Collection Time Receive d Time (Source) Location / / Volume Laterality Blood 03/06/2021 12:20 03/06/2021 PM EDT 12:25 PM EDT Resulting Agency Comment Spec In Lab Alejo Garnett MD CHEMISTRY ORDERABLES Performing Organization Address City/[facility]/ZIP Code Phon e Number [address] Uric acid (03/06/2021 12:20 PM EDT) P athologist Signature Uric Acid 7.5 3.5 - 8.5 [facility] mg/dL [facility] Specimen Anatomical Collection Method Collection Time Receive d Time (Source) Location / / Volume Laterality Blood 03/06/2021 12:20 03/06/2021 PM EDT 12:25 PM EDT Resulting Agency Comment Spec In Lab Alejo Garnett MD CHEMISTRY ORDERABLES Performing Organization Address City/State/ZIP Code Phon e Number [address] Magnesium (03/06/2021 12:20 PM EDT) P athologist Signature Magnesium 0.69 0.69 - 1.07 [facility] mmol/L [facility] Specimen Anatomical Collection Method Collection Time Receive d Time (Source) Location / / Volume Laterality Blood 03/06/2021 12:20 03/06/2021 PM EDT 12:25 PM EDT Resulting Agency Comment Spec In Lab Alejo Garnett MD CHEMISTRY ORDERABLES Performing Organization Address City/State/ZIP Code Phon e Number [address] Phosphorus (03/06/2021 12:20 PM EDT) athologist Signature Phosphorus 3.3 2.5 - 4.5 [facility] mg/dL [facility] Specimen Anatomical Collection Method Collection Time Receive d Time (Source) Location / / Volume Laterality Blood 03/06/2021 12:20 03/06/2021 PM EDT 12:25 PM EDT Resulting Agency Comment Spec In Lab Alejo Garnett MD CHEMISTRY ORDERABLES Performing Organization Address City/[facility]/ZIP Code Phon e Number [address] Lipid Panel (Reflex Direct LDL) (03/06/2021 12:20 PM EDT) athologist Signature Chol, Total 92 mg/dL [facility] Comment: Lower Risk: <200 mg/dL Average Risk: 200-239 mg/dL Higher Risk: >tp=111 mg/dL Triglycerides 203 mg/dL [facility] Comment: Average Risk/Lower Risk: <150 mg/dL Borderline High Risk: 150-199 mg/dL High Risk: 200-499 mg/dL Very High Risk: >fd=373 mg/dL HDL 21 mg/dL [facility] Comment: Males: ?? Higher Risk: <40 mg/dL Females: ?? Higher Risk: <50 mg/dL LDL Cholesterol 30 mg/dL [facility] Comment: Lowest Risk: <100 mg/dL Lower Risk: 100-129 mg/dL Borderline High Risk: 130-159 mg/dL High Risk: 160-189 mg/dL Very High Risk: >fj=571 mg/dL Chol/HDL Ratio 4.4 ratio [facility] Lipid Interpretation See Note [facility] Comment: Lipid management should be guided by a p atient? s ASCVD risk, goals and preferences. ACC/AHA Guidelines recommend high intens ity statin if clinical ASCVD or LDL greater than or equal to 190 mg/dL. http://Perfect ChannelurStockpulse.com/EKK-EKB-Baymkeaco Adults aged 40-75 with LDL 70-189 mg/dL should have their 10 year ASCVD risk estimated with the ACC/AHA ASCVD risk es timator http://tools.acc.org/BHLWI-Zuud-Psajikgb r/ Statin should be discussed if risk [...] Organization Address City/State/[place] [address] (ABNORMAL) Comprehensive metabolic panel (non-fasting) (03/06/2021 12:20 PM EDT) P athologist Signature Glucose Lvl 197 65 - 199 [facility] mg/dL [facility] Comment: Diabetes: >=200 mg/dL plus symp toms BUN 40 (H) 10 - 20 mg/dL [facility] Creatinine 3.47 (H) 0.80 - 1.50 mg/dL [facility] Sodium 139 135 - 145 mmol/L [facility] Potassium 4.8 3.5 - 5.0 mmol/L [facility] Comment: Please note: ??Patients with WBC >100,00 0 may have falsely elevated Potassium levels. ??For accurate Potassium quantif ication in these patients send serum separator tube (gold top) for subsequent determinations. ??Contact the Clinical Chemistry Laboratory if there are any qu estions. Chloride 106 98 - 107 mmol/L [facility] CO2 22 22 - 31 mmol/L [facility] Anion Gap 11 5 - 15 mmol/L [facility] Calcium 10.1 8.5 - 10.5 mg/dL [facility] Total Protein 7.4 6.1 - 8.0 gm/dL [facility] Albumin 3.6 3.2 - 5.2 gm/dL [facility] AST 12 0 - 39 unit/L [facility] ALT 9 0 - 55 unit/L [facility] Alk Phos 112 40 - 130 unit/L [facility] Total Bilirubin 0.3 0.2 - 1.3 mg/dL [facility] Estimated GFR 17 (L) >=60 mL/min/1.73 m?? [facility] Comment: This patient? s estimated [...] Organization Address City/State/[place] [address] Reticulocyte Count (03/06/2021 12:20 PM EDT) athologist Signature Retic Ct % 2.6 0.7 - 2.6 [facility]OR[facility] Retic Ct Abs 0.080 0.030 - JERE GARRISON 0.120 [facility] x10(6)/[facility] LABORATORY Immature Retic% 14.1 0.0 - 15.6 [facility] K [facility] Reticulated Hgb 32.5 31.3 - [facility] 40.2 pg [facility] Specimen Anatomical Collection Method Collection Time Receive d Time (Source) Location / / Volume Laterality Blood 03/06/2021 12:20 03/06/2021 PM EDT 12:25 PM EDT Resulting Agency Comment Spec In Lab Alejo Garnett MD HEMATOLOGY ORDERABLES Performing Organization Address City/State/[place] [address] (ABNORMAL) Hemoglobin A1c (03/06/2021 [...] 1, S67-74 Est Avg Gluc 166 mg/dL [facility] Comment: eAG equivalents for HbA1c percentages: HbA1c(%) ?eAG(mg/dL) 6.0 ?126 6.5 ?140 7.0 ?154 7.5 ?169 8.0 ?183 8.5 ?197 9.0 ?212 9.5 ?226 10.0 ? 240 Limitations: The eAG calculation has not been validated on women, individuals below 18 years old and above 70 years old, and individuals with hemoglobinopathies. Additional resources are available on [facility] ADA website. Scooby MALDONADO, Nba J, Sydnee R, et al. ??Tr anslating the A1C assay into estimated average glucose values. ??Diabetes Care 2008:31(8):5079-9590. Specimen Anatomical Collection Method Collection Time Receive d Time (Source) Location / / Volume Laterality Blood 03/06/2021 12:20 03/06/2021 PM EDT 12:25 PM EDT Resulting Agency Comment Spec In Lab Alejo Garnett MD CHEMISTRY ORDERABLES Performing Organization Address City/[facility]/ZIP Code Phon e Number [address] Phosphorus, urine, random (03/06/2021 12:12 PM EDT) P athologist Signature U Phosphorus 29.3 mg/dL [facility] Specimen Anatomical Collection Method Collection Time Receive d Time (Source) Location / / Volume Laterality Urine 03/06/2021 12:12 03/06/2021 PM EDT 12:28 PM EDT Resulting Agency Comment Spec In Lab Alejo Garnett MD URINE ORDERABLES Performing Organization Address City/[facility] Phon e Number [address] Magnesium, urine, random (03/06/2021 12:12 PM EDT) P athologist Signature U Mg Ran 1.71 mmol/L [facility] Specimen Anatomical Collection Method Collection Time Receive d Time (Source) Location / / Volume Laterality Urine 03/06/2021 12:12 03/06/2021 PM EDT 12:28 PM EDT Resulting Agency Comment Spec In Lab Alejo Garnett MD URINE ORDERABLES Performing Organization Address City/[facility]/ZIP Code Phon e Number [address] Calcium Creatinine Ratio, random urine (03/06/2021 12:12 PM EDT) P athologist Signature U Calcium 3.6 mg/dL [facility] U Creatinine 62 mg/dL [facility] Ca/Cre Ratio 0.06 ratio [facility] Specimen Anatomical Collection Method Collection Time Receive d Time (Source) Location / / Volume Laterality Urine 03/06/2021 12:12 03/06/2021 PM EDT 12:28 PM EDT Resulting Agency Comment Spec In Lab Alejo Garnett MD URINE ORDERABLES Performing Organization Address City/[facility]/[place] [address] (ABNORMAL) Protein/Creatinine Ratio, urine (03/06/2021 12:12 PM EDT) P athologist Signature U Creatinine 62 mg/dL [facility] U Protein Ran 70 (H) 0 - 12 [facility] mg/dL [facility] Prot/Cre Ratio 1.1 ratio [facility] Specimen Anatomical Collection Method Collection Time Receive d Time (Source) Location / / Volume Laterality Urine 03/06/2021 12:12 03/06/2021 PM EDT 12:28 PM EDT Resulting Agency Comment Spec In Lab Alejo Garnett MD URINE ORDERABLES Performing Organization Address City/[facility]/[place] [address] BKV Quant Urine (03/06/2021 12:12 PM EDT) Component Value Ref Test Analysis Performed At [facility] gist Range Method Time Signature BKV Urine Not Detected [facility] LABORATORY BKV Urine BK Virus Urine Result Interpretation [facility] Result: BK Virus not detected HOSPITAL Specimen type: urine LABORATOR Y Assay Range: 2.80-7.80 log copies/mL (6.28x10^2 - 6.28x10^7 copies/mL) Methods: Quantitative real-time polymerase chain react ion (PCR) of viral DNA isolated from plasma was performed using [employer] BKV analyte-specific reagents and the [employer] System that automates both nucleic a alonzo [...] and Advanc ed Technology (CGAT) Laboratory at [facility]. It has not been cleared or approved [...] Organization Address City/State/[place] [address] (ABNORMAL) Urinalysis with reflex Culture (03/06/2021 12:12 PM EDT) [facility] Method Time Signature Glucose UA Negative Negative [facility] mg/dL [facility] Protein UA 100 (A) Negative [facility] mg/dL [facility] Bilirubin UA Negative Negative [facility] mg/dL [facility] Comment: Clinical correlation required for positi ve Urine Bilirubin results as false positive may occur with some drugs and d rug related products. If a false positive is suspected a serum total bili reyna should be considered if clinically indicated. Urobilinogen UA Normal Normal mg/dL [facility] pH UA 6.0 5.0 - 8.0 [facility] Blood UA Negative Negative mg/dL [facility] Ketones UA Negative Negative mg/dL [facility] Nitrite UA Negative Negative [facility] Leukocytes UA Negative Negative mcL [facility] Appearance UA Clear Clear [facility] Spec [place] UA 1.013 1.005 - 1.030 [facility] Color UA Yellow Yellow [facility] Culture Reflexed No [facility] Specimen Anatomical Collection Method Collection Time Receive d Time (Source) Location / / Volume Laterality Clean Catch 03/06/2021 12:12 03/06/2021 Urine PM EDT 12:26 PM EDT Resulting Agency Comment Spec In Lab Alejo Garnett MD URINE ORDERABLES Performing Organization Address City/State/[place] [address] documented in this encounter Visit Diagnoses Diagnosis H/O kidney transplant Kidney replaced by transplant Vitamin D deficiency Unspecified vitamin D deficiency termite inspector current use of immunosuppressi ve drug documented in this encounter Care Teams Supervisor Of Officials Relationship Specialty Start Date End Date Violetta Sanford MD PCP - General 04/02/14 [address] [place] [address] documented as of this encounter
--- OUTSIDE RECORDS SUMMARY | 2022-05-24 10:49 | XMS_ITS | Encounter Summary ---
:1955 Author Organization [facility] [place] [address] Care Team Providers Name Role Phone Violetta Sanford MD Primary Care Provider Reason for Visit Reason Comments Injections Aranesp Treatment/Therapy Plan Authorization (Routine) - Authorized Specialty Diagnoses / Procedures Referred By Contact Refer red To Contact Hematology and Diagnoses CKD (chronic kidney disease) stage 4, GFR 15-29 ml/min [facility] Hem Onc Office Oncology Procedures ALFREDA Ramirez MD [address] [place] [address] HEMATOLOGY/ONCOLOGY [id number] [place] [address] Referral ID Status Reason Start Date Expiration Date Visits V isits Requested Authorized [id number] Authorized 10/08/2020 06/23/2022 99 99 Encounter Details Date Type Department Care Team Description 03/25/2021 Infusion Hematology Oncology at [facility] D (chronic kidney disease) [facility] stage 4, GFR 15-29 ml/min [address] [place] [phone] Social History Tobacco Use Types [...] Sign Reading Time Taken Comments Blood Pressure 150/56 03/25/2021 1:47 PM EDT Pulse 68 03/25/2021 1:47 PM EDT Temperature 36.7 ??C (98 ??F) 03/25/2021 1:47 PM EDT Respiratory Rate - - Oxygen Saturation 100% 03/25/2021 1:47 PM EDT Inhaled Oxygen Concentration - - Weight - - Height - - Body Mass Index - - documented in this encounter Progress Notes Sudha Lamb RN - 03/25/2021 1:30 PM EDT INFUSION THERAPY ADMINISTRATION NOTES DIAGNOSIS: Anemia due to CKD Stage IV, history of kidney transplant REASON FOR VISIT: Aranesp Injection SUBJECTIVE Mr. Torres is here for his Aranesp injection. He offers no complaints. OBJECTIVE LAB DATA: Hgb 8.8 today Pre administration: Orders independently verified for [...] Panda PA [facility] [address] [place] [address] (Oscar escobedo) 06/02/2022 Infusion Hematology and Oncology 06/16/2022 Infusion Hematology and Oncology 06/21/2022 Office Visit Neurology Tyler oRjas MD [facility] Dr [place], [place] [phone] (Oscar escobedo) 06/30/2022 Infusion Hematology and Oncology 07/14/2022 Infusion Hematology and Oncology 07/28/2022 Infusion Hematology and Oncology 08/11/2022 Infusion Hematology and Oncology 11/04/2022 Office Visit Rheumatology Dante Freedman PA [facility] [place]HEUMATOLOGY [place], [place] [address] (Wo rk) documented as of this encounter Visit Diagnoses Diagnosis CKD (chronic kidney disease) stage 4, GF R 15-29 ml/min Chronic kidney disease, Stage IV (severe ) documented in this encounter Administered Medications Inactive Administered Medications - up to 3 most recent administrations Medication Order MAR Action Action Date Dose Rate Site darbepoetin cristy-polysorbate Given 03/25/2021 1:52 PM EDT 300 mc g Right Arm (Aranesp) (300 mcg/0.6 mL) injection 300 mcg 300 mcg, Subcutaneous, ONCE, 1 dose, On Tue03/25/21 at 1400, Hold parameters for MDS and chemotherapy-induced anemia: Hemoglobin greater than or equal to 10 gm/dL Hematocrit greater than or equal to 30% Hold parameters for CKD: Hemoglobin greater than or equal to 12 gm/dL Hematocrit greater than or equal to 36%, Routine, What is the indication of use? Chronic Kidney Disease (CKD) documented in this encounter Care Teams Solutions Specialist Relationship Specialty Start Date End Date Violetta Sanford MD PCP - General 04/02/14 [address] [place] [address] documented as of this encounter
--- OUTSIDE RECORDS SUMMARY | 2022-05-24 10:49 | XMS_ITS | Encounter Summary ---
:1955 Author Organization [facility] [place] [address] Care Team Providers Name Role Phone Violetta Sanford MD Primary Care Provider Reason for Visit Reason Onset Date Comments Prior Authorization 08/07/2021 Encounter Details Date Type Department Care Team Description 08/07/2021 Telephone [facility]ocrinology at [facility] [place] [phone] Social History Tobacco Use Types Packs/Day Years [...] Notes Telephone Encounter - Leny Morales - 08/07/2021 2:50 PM EST Images from the original note were not included. Medication Prior Authorization [place] Medication name/dose/directions: Freestyle Gilberto 2 Sensors Rationale for request: Type II DM Health [place] (Fax) Authorizing public health representative name: Terri Sent to health plan on: 08/06/21 Health plan decision: Quantity approved: Authorization number: [id number] Start date: End date: Telephone Encounter - Leny Morales - 08/07/2021 7:51 AM EST Received PA for gilberto 2 sensor Will complete as soon as possible documented in this encounter Plan of Treatment Upcoming Encounters Date Type Specialty Care Team Description 05/26/2022 Office Visit Otolaryngology Ricardo Panda PA [facility] er [place], [place] [address] (Wo rk) 06/02/2022 Infusion Hematology and Oncology 06/16/2022 Infusion Hematology and Oncology 06/21/2022 Office Visit Neurology Tyler Rojas MD [facility] Neurology [place], [place] [phone] (Wo rk) 06/30/2022 Infusion Hematology and Oncology 07/14/2022 Infusion Hematology and Oncology 07/28/2022 Infusion Hematology and Oncology 08/11/2022 Infusion Hematology and Oncology 11/04/2022 Office Visit Rheumatology Dante Freedman PA [facility] [place]HEUMATOLOGY [place], [place] [address] (Wo rk) documented as of this encounter Visit Diagnoses Not on filedocumented in this encounter Care Teams Wind Operations Supervisor Relationship Specialty Start Date End Date Violetta Sanford MD PCP - General 04/02/14 [facility] [address] [place] [address] documented as of this encounter
--- OUTSIDE RECORDS SUMMARY | 2022-05-24 10:49 | XMS_ITS | Encounter Summary ---
:1955 Author Organization [facility] [place] [address] Care Team Providers Name Role Phone Violetta Sanford MD Primary Care Provider Encounter Details Date Type Department Care Team Description 07/21/2021 Office Visit Endocrinology at [facility] Donell Hernandez, Type 2 diabetes [facility] mellitus with [facility], [place] [address] [place] [address] long-term current use [phone] ENDOCRINOLOGY of insulin DEPT. [place], [place] [address] Social History Tobacco Use Types [...] Sign Reading Time Taken Comments Blood Pressure 147/43 07/21/2021 1:39 PM EST Pulse 69 07/21/2021 1:39 PM EST Temperature 37.3 ??C (99.2 ??F) 07/21/2021 1:39 PM EST Respiratory Rate - - Oxygen Saturation 99% 07/21/2021 1:39 PM EST Inhaled Oxygen Concentration - - Weight 123.4 kg (272 lb) 07/21/2021 1:39 PM EST Height 193 cm (6' 4) 07/21/2021 1:39 PM EST Body Mass Index 33.11 07/21/2021 1:39 PM EST documented in this encounter Progress Notes Donell Hernandez MD - 07/21/2021 2:30 PM EST Year of diagnosis: Regimen ____ oral agents [...] bilateral bka R and morbid obesity. From February 2021 1) DM2 -he is requiring less insulin due to declining renal clearance of isnulin - he had a low in the office (70's) after eating little at lunch. I reduced his levemire to 55 bid and increase the mealinsulin to 20 units of aspart with meals . Based on the oc I asked him tochange from his pure carb breakfasts (cereal) to pb toast, since he had rapid glucose increase typically after breakfast and l ess so the rest of the day 2)CKD3 - now transitioning to ESRD, likely to return to dialysis. I lowered the liraglutide to 1.2 mg a day. 3) retinopathy - has had follow up within the year 4) history of renal transplant- is immunocompromised- has had COVID vaccine 5) bilateral BKA - pleased with new prostheses and insurance that covers them 6) hearing loss - he says he had the loss of hearing of L ear evalauted and was supposed to have a drain placed locally but that ENT moved away. Will refer to our otolaryngology to evaluate/treat. Interim history Renal function is deteriorating- eGFR now < 20 Now getting regular infusion sof aranesp (erythyropoietin) Liraglutide is now 1.2, Continues on losartan 25 Using emu cream for hand pain - helpful Regimen Basal levemir 60/55 bid victoza 1.2 Bolus 25 units per meal CF 1:4 Uses a sliding scale hbgm 4 x a day 130-200 most days for fbs Hypo none Diet B cereal Sn Bagel L 1/2 bagel w egg and cheese Sn D Sausage Potato 2 eggs Sn cookies Exercise Lifts pellet bags complications Eyes prior laser therapy Feet Bilateral BKA Kidneys + renal transplant autonomic: no gastroparesis bladder hypo unaware tachycardia cardiac no chest pain on exertion no shortness of breath at rest No history of stent cabg chf prevention: last eye exam: July 2020; coming up last microalbumin :n/a last Cr: today last lipid panel: today regular education and outreach coordinator:no special shoes:no flu shot :yes COVID moderna x 3 pneumovax: 2011 prevnar 2014 acei yes Asa Yes statin yes NO shingles shot permitted by transplant team Appearance: looks well wt Change Weight is stabld eyes: no retinopathy seen by green light feet: bilateral bka Chol, Total 92 mg/dL Triglycerides 203 mg/dL HDL 21 mg/dL LDL Cholesterol 30 mg/dL Chol/HDL Ratio 4.4 ratio Lipid Interpretation See Note Value Ref Range Lavender Hold Sample in lab. Value Ref Range Hemoglobin A1C 7.4 (H) 4.3 - 5.6 % Est Avg Gluc 166 mg/dL Value Ref Range Gold Hold Sample in lab. Value Ref Range Glucose Lvl 197 65 - 199 mg/dL BUN 40 (H) 10 - 20 mg/dL Creatinine 3.47 (H) 0.80 - 1.50 mg/dL eGFR 17 Ref. Range 08/29/2019 10:04 06/24/2020 10:57 Hemoglobin A1C Latest Ref Range: 4.3 - 5.6 % 7.9 (H) 6.4 (H) Ref. Range 07/09/2019 00:00 07/16/2019 00:00 08/29/2019 10:04 06/24/2020 10:57 Creatinine : 0.80 - 1.50 mg/dL 2.37 (H) 2.37 (H) 2.48 (H) Estimated GFR : >=60 mL/min/1.73 m?? 27.62 27.62 26 (L) His oc suggests excellent control (GMI 6.8) and the [...] COVID and likely will need a 4th This was a 40 min visit in total time for precharting, interview and counseling, review of labs as above, ordering labs and charting RTC 6 mo documented in this encounter Miscellaneous Notes Addendum Note - Donell Hernandez MD - 07/21/2021 2:30 PM EST Addended by: DONELL HERNANDEZ on: 07/21/2021 03:48 PM Modules accepted: Orders documented in this encounter Plan of Treatment Upcoming Encounters Date Type Specialty Care Team Description 05/26/2022 Office Visit Otolaryngology Ricardo Panda PA [facility] STE[place]A [place] [address] (Wo gregg) 06/02/2022 Infusion Hematology and Oncology 06/16/2022 Infusion Hematology and Oncology 06/21/2022 Office Visit Neurology Tyler Rojas MD [facility] Dr Sofi Rodriguez [place] 0375 6-2022 (Wo rk) 06/30/2022 Infusion Hematology and Oncology 07/14/2022 Infusion Hematology and Oncology 07/28/2022 Infusion Hematology and Oncology 08/11/2022 Infusion Hematology and Oncology 11/04/2022 Office Visit Rheumatology Dante Freedman PA [facility] RHEUMATOLOGY [place], [place] [address] (Wo rk) Scheduled Orders Name Type Priority Associated Diagnoses Order S chedule TSH Lab Routine Type 2 diabetes mellitus wit h Expected: 07/06/2022 hyperglycemia, with long-ter m (Approximate), Expires: current use of insulin 07/21 Hemoglobin A1c Lab STAT Type 2 diabetes mellitus w ith Expected: 12/18/2021 hyperglycemia, with long-ter m (Approximate), Expires: current use of insulin 07/21 Creatinine Lab STAT Type 2 diabetes mellitus wit h Expected: 12/18/2021 hyperglycemia, with long-ter m (Approximate), Expires: current use of insulin 07/21 documented as of this encounter Visit Diagnoses Diagnosis Type 2 diabetes mellitus with hyperglyce maki, with long-term current use of insulin documented in this encounter Care Teams Dragline Mechanic Relationship Specialty Start Date End Date Violetta Sanford MD PCP - General 04/02/14 [address] [place] [address] documented as of this encounter
--- OUTSIDE RECORDS SUMMARY | 2022-05-24 10:49 | XMS_ITS | Encounter Summary ---
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 current use of immunosuppressive drug Alejo Garnett MD [facility] [place] [address] Referral ID Status Reason Start Date Expiration Date Visits Requ ested Visits Authorized [id number] Closed Other 03/13/2021 09/09/2021 1 1 Encounter Details Date Type Department Care Team Description 03/13/2021 Office Visit Solid Organ Mariola, H/O kidney tilley splant; Transplant at [facility] Alejo Desir MD lobsterman current use of immunosuppressi ve drug; [facility] MEDICAL 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 ivon kidney disease) stage 4, GFR 15-29 ml/min; [facility] DR Dunn immunotherapy; [place], [place] TRANSPLANT Aftercare follo wing organ transplant [id number] SURGERY [phone] [place] [address] Social History Tobacco Use Types Packs/Day Years [...] Sign Reading Time Taken Comments Blood Pressure 130/50 03/13/2021 2:08 PM EDT Pulse 48 03/13/2021 2:08 PM EDT Temperature - - Respiratory Rate - - Oxygen Saturation - - Inhaled Oxygen Concentration - - Weight 123.4 kg (272 lb) 03/13/2021 2:08 PM without pro thetics EDT Height - - Body Mass Index 32.68 03/06/2021 1:12 PM EDT documented in this encounter Progress Notes Alejo Garnett MD - 03/13/2021 1:40 PM EDT Images from the original note were not included. TRANSPLANT NEPHROLOGY FOLLOW-UP NOTE PATIENT: Leroy Dailey : 1955 Transplant ID: Date:?? 03/13/2021 Patient: Leroy Dailey Transplant Date: 02/29/2008 Organ(s) Kidney Cachil Dehe organ diagnosis: Diabetes Mellitus - Type II From Transplant:?? 13 years ID: This is a 65 yo white male with a history of ESRD secondary to diabetic nephropathy s/p DD renaltransplant on 02/29/08 who returns to clinic for ongoing care of his transplanted kidney and ckd stage4 (GFR mid 20s). ?? Interim Hx: Reuben returned to clinic with his . He was upset about the fact everyone is telling him he'll have to go on dialysis soon. I explained to him he has not yet declined to stage 5 CKD and has sometimeahead but should be prepared. I plotted his creatinine curve for the last 10+ years to show him thathis graft is slowly declining not rapidly so. Reuben developed V/ zoster of his mid thoracic chest and back more than 6 months ago. He was treated for approximately one week with what he believes was acyclovir but remains in excessive painful radiculopathy. He still has residual discomfort on occasion. He denies ED visits, admits, new allergies. ?? He was admitted to [facility] in October 2018 for fluid overload and A fib.Reuben denies anasarca, progressiveascites, edema beyond usual from his amputations and obesity. He is followed both by Dr. Hernandez for diabetes and Dr. Rojas for his neuropathy, autonomic instability. ? Active Ambulatory Problems ?? Diagnosis Date [...] 02/29/2008 ??? CREATED BY INTERFACE ? RECONSTRUCT CAD\\LIVING DONOR RENAL VENOUS ANAS. Procedure Date: 02/29/2008 ??? PRO AMPUTATION LOW LEG THRU TIB/FIB ?? 06/21/2011 ?AMPUTATION, BELOW-KNEE performed by HENNA GAMINO JR at [facility] MAIN OR ??? PRO LAP, APPENDECTOMY ?? 06/16/2013 ?? LAPAROSCOPIC APPENDECTOMY performed by Angel Mccann MD at [facility] MAIN OR ??? US RENAL TRANSPLANT LEFT Left 06/26/2019 ?? US Renal Transplant Left 06/26/2019 [facility] RAD ULTRASOUND ?? Healthcare maintenance for a [...] age 48 - Normal in 2017 in [facility] Monthly self skin exam, daily [...] done 03/21/2015 which was normal. Due again!! Cachil Dehe kidney ultrasound looking for renal cell CA, every 5 years post transplant - Due this year. Bone density assessment every 9-12 years post transplant ; has not been performed Annual fasting lipid profile Annual PTH-Vit D3 assessment until normalized Annual spot urine for creatinine, protein, calcium, phosphate, magnesium? Current Outpatient Medications: ??? insulin aspart U-100 (NovoLOG) Cartridge, Inject subcutaneously 3 times daily (with meals). Sliding scale, Disp: , Rfl: ??? hydrALAZINE (Apresoline) 100 mg Tablet, Take 1 tablet by mouth 3 times daily., Disp: 270 tablet,Rfl: 2 ??? FreeStyle Gilberto 14 Day Sensor Kit, 1 each by [facility].(Non-Drug; Combo Route) route every 14 days. Use to continuously monitor blood glucose. Scan at least 5 times per day. DX: E11.65, Disp: 6 kit, Rfl: 3 ??? Gvoke PFS 1-Pack Syringe 1 mg/0.2 mL Syringe, Inject 1 each subcutaneously as needed (as needed for severe hypoglycemia). Repeat with new unit if no response after 15 minutes., Disp: 2 Syringe, Rfl: 11 ??? darbepoetin cristy in polysorbat 10 mcg/0.4 mL Syringe, Inject 300 mg as directed as needed., Disp: , Rfl: ??? cyanocobalamin, Vitamin B-12, (Vitamin B-12) 100 mcg Tablet, Take 100 mcg by mouth daily., Disp:, Rfl: ??? Prograf 1 mg Capsule, Take 1 capsule by mouth daily. Kidney transplant 02/29/2008 dx code Z94.0 D/C date 03/11/2008, Disp: 30 capsule, Rfl: 11 ??? Prograf 0.5 mg Capsule, Take 1 capsule by mouth nightly. Kidney transplant 02/29/2008 dx code Z94.0 D/C date 03/11/2008, Disp: 30 capsule, Rfl: 11 ??? CellCept 250 mg Capsule, Take 2 capsules by mouth 2 times daily. Kidney transplant 02/29/2008 dx code Z94.0 D/C date 03/11/2008, Disp: 120 capsule, Rfl: 11 ??? losartan (Cozaar) 25 mg Tablet, Take 1 tablet by mouth daily., Disp: 90 tablet, Rfl: 3 ??? guaiFENesin 200 mg Tablet, Take 400 mg by mouth every 4 hours as needed for Congestion., Disp: ,Rfl: ??? Blood-Glucose Sensor (Dexcom G6 Sensor) Device, by [facility].(Non-Drug; Combo Route) route. Sensor, clinical engineering director andtransmitter, Disp: , Rfl: ??? calciTRIoL (Rocaltrol) 0.5 mcg Capsule, Take 1 capsule by mouth daily., Disp: 90 capsule, Rfl: 3 ??? metoprolol succinate XL (Toprol-XL) 50 mg Tablet Sustained Release 24 hr, Take 1 tablet by mouthdaily., Disp: 90 tablet, Rfl: 1 ??? amLODIPine (Norvasc) 10 mg Tablet, Take 0.5 tablets by mouth daily., Disp: 90 tablet, Rfl: 3 ??? fluticasone propionate (FLONASE) 50 mcg/actuation [place], Suspension, INSTILL 2 SPRAYS INTO EACH NOSTRIL ONCE A DAY NEEDED, Disp: , Rfl: ??? triamcinolone (NASACORT or NASACORT OTC) 55 mcg Aerosol, [place], 2 sprays by Nasal route daily., Disp: 1 Inhaler, Rfl: 12 ??? albuterol (PROVENTIL) 2.5 mg /3 mL [...] gauge x 1/2 Needle, 1 Device by [facility].(Non- Drug; Combo Route) route 3 times daily., [...] Reported on 08/06/2016, Disp: , Rfl: ??? STIOLTO RESPIMAT 2.5-2.5 mcg/actuation Mist, Inhale 2 puffs into the lungs daily., Disp: , Rfl: 1 ??? Miscellaneous Medical Supply [facility], 4 Devices by [facility].(Non-Drug; Combo Route) route daily. Rubbersheath for leg prosthesis (2 pairs), Disp: 4 each, Rfl: PRN ??? VENTOLIN HFA 90 mcg/actuation HFA Aerosol Inhaler, Inhale 2 puffs into the lungs as needed., Disp: , Rfl: 0 ??? Insulin Lispro (HUMALOG) 100 unit/mL Insulin Pen, Inject 15-30 Units subcutaneously 4 times daily., Disp: , Rfl: ??? BD INSULIN PEN NEEDLE UF ORIG 29 gauge x 1/2 Needle, , Disp: , Rfl: 0 ??? aspirin 81 mg EC tablet, Take 81 mg by mouth daily., Disp: , Rfl: ??? montelukast (SINGULAIR) 10 mg tablet, Take 10 mg by mouth daily., Disp: , Rfl: Immunization History Administered Date(s) Administered ??? Hepatitis B Vaccine, unspecified formulation 08/20/2004, 09/28/2004, 03/01/2005 ??? Influenza PF, Split 05/13/2016 ??? Influenza Vaccine, Whole 05/19/2005, 06/25/2008 ??? Moderna Covid-19 Vaccine 10/20/2020, 11/17/2020 ??? Pneumococcal Conjugate (13 Valent) 07/09/2015 ??? Pneumococcal Polyvalent 23 12/20/1996, 02/10/2007, 02/23/2012, 03/21/2019 ??? Td, adult 06/24/1990 ??? Tdap Vaccine 07/13/2013 ? Allergies Allergen Reactions ??? Penicillins Anaphylaxis [...] stamina and endurance. ?? PHYSICAL EXAM:?? Vitals Office Visit from 03/13/2021 in Solid Organ Transplant at [facility] Weight 123.4 kg (272 lb) [without prothetics] Heart Rate 48 BP 130/50 Appearance - Awake and alert. NAD. Morbidly obese. Skin - eschars in papular distribution upper/midthorax to back HEENT - No sclera icterus. Moist oral mucosa. Chest - Lungs CTA. Heart - S1 and S2. RRR. No MRG. No JVD. Abd - Obese. Soft. Non-tender. Normal BS. Ext - LUE AVF with bruit and thrill. Warm extremities. No cyanosis. Bilateral prosthetic legs. Neuro - Normal speech. Left hand resting tremor.?Results for LEROY DAILEY ( ) as of 03/24/2021 05:06 Ref. Range 03/06/2021 12:12 03/06/2021 12:12 03/06/2021 12:20 WBC Latest Ref Range: 4.0 - 9.5 x10(3)/mcL 7.0 RBC Latest Ref Range: 4.58 - 5.54 x10(6)/mcL 3.04 (L) Hemoglobin Latest Ref Range: 13.7 - 16.5 gm/dL 9.1 (L) Hematocrit Latest Ref Range: 40.5 - 48.5 % 28.8 (L) MCV Latest Ref Range: 82.9 - 93.1 fL 94.7 (H) MCH Latest Ref Range: 27.5 - 32.1 pg 29.9 MCHC Latest Ref Range: 32.0 - 35.7 gm/dL 31.6 (L) RDWSD Latest Ref Range: 36.0 - 45.0 fL 47.5 (H) RDWCV Latest Ref Range: 11.4 - 13.8 % 13.8 Platelets Latest Ref Range: 145 - 357 x10(3)/mcL 194 MPV Latest Ref Range: 7.6 - 12.[address] % Latest Ref Range: 0.7 - 2.6 % 2.[address] Abs Latest Ref Range: 0.030 - 0.120 x10(6)/mcL 0.080 Immature Retic% Latest Ref Range: 0.0 - 15.6 % 14.1 Reticulated Hgb Latest Ref Range: 31.3 - 40.2 pg 32.5 nRBC % Auto Latest Units: % 0.0 nRBC Abs Auto Latest Ref Range: 0.000 - 0.000 x10(3)/mcL 0.000 Neutr Abs (ANC) Latest Ref Range: 1.70 - 6.10 x10(3)/mcL 4.43 Neutrophils % Latest Units: % 63.0 Immature Gran % Latest Units: % 0.10 Lymphocytes % Latest Units: % 25.7 Monocytes % Latest Units: % 7.0 Eosinophils % Latest Units: % 3.6 Basophils % Latest Units: % 0.6 Courtney Gran Abs Latest Ref Range: 0.00 - 0.04 x10(3)/mcL 0.01 Lymphocytes Abs Latest Ref Range: 0.9 - 3.2 x10(3)/mcL 1.8 Monocyte Abs Latest Ref Range: 0.3 - 0.9 x10(3)/mcL 0.5 Eosinophils Abs Latest Ref Range: 0.0 - 0.4 x10(3)/mcL 0.2 Basophils Abs Latest Ref Range: 0.0 - 0.1 x10(3)/mcL 0.0 Sodium Latest Ref Range: 135 - 145 mmol/L 139 Potassium Latest Ref Range: 3.5 - 5.0 mmol/L 4.8 Chloride Latest Ref Range: 98 - 107 mmol/L 106 CO2 Latest Ref Range: 22 - 31 mmol/L 22 Anion Gap Latest Ref Range: 5 - 15 mmol/L 11 BUN Latest Ref Range: 10 - 20 mg/dL 40 (H) Creatinine Latest Ref Range: 0.80 - 1.50 mg/dL 3.47 (H) Estimated GFR Latest Ref Range: >=60 mL/min/1.73 m?? 17 (L) Calcium Latest Ref Range: 8.5 - 10.5 mg/dL 10.1 Magnesium Latest Ref Range: 0.69 - 1.07 mmol/L 0.69 Phosphorus Latest Ref Range: 2.5 - 4.5 mg/dL 3.3 Uric Acid Latest Ref Range: 3.5 - 8.5 mg/dL 7.5 Glucose Lvl Latest Ref Range: 65 - 199 mg/dL 197 Hemoglobin A1C Latest Ref Range: 4.3 - 5.6 % 7.4 (H) Est Avg Gluc Latest Units: mg/dL 166 Total Protein Latest Ref Range: 6.1 - 8.0 gm/dL 7.4 Albumin Latest Ref Range: 3.2 - 5.2 gm/dL 3.6 Total Bilirubin Latest Ref Range: 0.2 - 1.3 mg/dL 0.3 Alk Phos Latest Ref Range: 40 - 130 unit/L 112 AST Latest Ref Range: 0 - 39 unit/L 12 ALT Latest Ref Range: 0 - 55 unit/L 9 U Protein Ran Latest Ref Range: 0 - 12 mg/dL 70 (H) Chol, Total Latest Units: mg/dL 92 HDL Latest Units: mg/dL 21 Chol/HDL Ratio Latest Units: ratio 4.4 Triglycerides Latest Units: mg/dL 203 LDL Cholesterol Latest Units: mg/dL 30 LDL Chol Direct Latest Units: mg/dL 45 Lipid Interpretation Unknown See Note Vit D 1,25 Latest Ref Range: 18 - 64 pg/mL 18 25-OH Vit D Total Latest Ref Range: 21 - 100 ng/mL 36 25-OH Vit D Interp Unknown Sufficient Tacrolimus Lvl Latest Units: ng/mL 2.8 PTH Latest Ref Range: 15 - 65 pg/mL 21 Color UA Latest Ref Range: Yellow Yellow Appearance UA Latest Ref Range: Clear Clear Spec [place] UA Latest Ref Range: 1.005 - 1.030 1.013 pH UA Latest Ref Range: 5.0 - 8.0 6.0 Protein UA Latest Ref Range: Negative mg/dL 100 (A) Glucose UA Latest Ref Range: Negative mg/dL Negative Ketones UA Latest Ref Range: Negative mg/dL Negative Bilirubin UA Latest Ref Range: Negative mg/dL Negative Urobilinogen UA Latest Ref Range: Normal mg/dL Normal Blood UA Latest Ref Range: Negative mg/dL Negative Leukocytes UA Latest Ref Range: Negative mcL Negative Nitrite UA Latest Ref Range: Negative Negative WBC UA Latest Ref Range: 0 - 3 /HPF 1 RBC UA Latest Ref Range: 0 - 3 /HPF 1 Bacteria UA Latest Ref Range: None /HPF Few (A) Culture Reflexed Unknown No Prot/Cre Ratio Latest Units: ratio 1.1 Ca/Cre Ratio Latest Units: ratio 0.06 U Calcium Latest Units: mg/dL 3.6 U Creatinine Latest Units: mg/dL 62 62 U Mg Ran Latest Units: mmol/L 1.71 U Phosphorus Latest Units: mg/dL 29.3 IMPRESSION/ RECOMMENDATIONS: 1. Graft function - failing graft, considering DD kidney 13??years out with creatinine rise to 3.47??mg/dL and progressive proteinuria most likely due to diabetic nephropathy recurrence. Function has deteriorated over the years likely due to poor diabetic control and dehydration. Now his control is improved but too little too late. Losartan and lisinopril discont'd due to side effects now proteinuriais becoming symptomatic (lower serum albumin and fluid retention).??However the ckd-epi equation is not accurate in a graft. His physiologic renal function tells us that his GFR is somewhere between 20and 25 cc/min (anemic without RTA of CKD). 2. Immunosuppression - Continue Prograf 1/ 0.5 mg BID and Cellcept 500mg BID. 3. CKD stage 4- physiologic GFR appears to be > 20 cc/min with a) renal osteodystrophy, anemia ofCKD and RTA of CKD. GFR hard to interpret with bilateral BKAs. - Labs reviewed. Ca++ and Phos WNL.??PTH elevated and 1,25 dihydroxy vit D3 low ? calcitriol to 0.5 mcg qd - hgb below 10, with poor retic response; will need to set up Procrit injections based upon BP and hgb - labs q 3 months, watch for progressive [...] Quispe 7.Healthcare maintenance - See section above. 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 ?? Total time: 25 of 30 min in direct face to face extension course counselor. documented in this encounter Plan of Treatment Upcoming Encounters Date Type Specialty Care Team Description 05/26/2022 Office Visit Otolaryngology Ricardo Panda PA [facility] [place] [address] [place], [place] [address] (Wo rk) 06/02/2022 Infusion Hematology and Oncology 06/16/2022 Infusion Hematology and Oncology 06/21/2022 Office Visit Neurology Tyler Rojas MD [facility] Neurology [place], [place] [phone] (Wo rk) 06/30/2022 Infusion Hematology and Oncology 07/14/2022 Infusion Hematology and Oncology 07/28/2022 Infusion Hematology and Oncology 08/11/2022 Infusion Hematology and Oncology 11/04/2022 Office Visit Rheumatology Dante Freedman PA [facility] RHEUMATOLOGY [place], [place] [address] (Wo rk) Scheduled Referrals Name Type Priority Associated Diagnoses Order S chedule Amb Referral to Outpatient Routine H/O kidney trans plant Ordered: COVID Vaccination Referral lobsterman current use o f 03/13/2021 Clinic (COVID) immunosuppressive drug documented as of this encounter Visit Diagnoses Diagnosis H/O kidney transplant Kidney replaced by transplant [facility] current use of immunosuppressi ve drug CKD (chronic kidney disease) stage 4, GF R 15-29 ml/min Chronic kidney disease, Stage IV (severe ) Prophylactic immunotherapy Need for prophylactic immunotherapy Aftercare following organ transplant documented in this encounter Care Teams Hand Mica Plate Layer Relationship Specialty Start Date End Date Violetta Sanford MD PCP - General 04/02/14 [address] [place] [address] documented as of this encounter"
--- OUTSIDE RECORDS SUMMARY | 2022-05-24 10:49 | XMS_ITS | Encounter Summary ---
:1955 Author Organization [place] [address] Care Team Providers Name Role Phone Violetta Sanford MD Primary Care Provider Reason for Visit Reason Onset Date Comments Labs Only 07/22/2021 Lab Tracking Encounter Details Date Type Department Care Team Description 07/22/2021 Telephone Hematology/Oncology at [facility], Labs Only (Lab Tracking) [facility] Angelica Gilbert RN [address] [place] [phone] Social History Tobacco Use Types Packs/Day [...] Telephone Encounter - Angelica Malhotra RN - 07/22/2021 1:29 PM EST LAB TRACKING Brett Dailey [id number] 1955 DIAGNOSIS: anemia d/t CKD stage IV, h/o kidney transplant LABS: CBC every 4 weeks as of 05/27/21 MEDICATIONS: Aranesp 300 mcg every 2 weeks if HGB <12 as of 05/27/21 ASSESSMENT/PLAN: Labs sent to provider for review. Will get aranesp today. Labs again in 1 month 08/19/2021 but continue Aranesp every 2 weeks. Results for BRETT DAILEY ( ) as of 07/22/2021 13:30 Ref. Range 05/06/2021 00:00 05/27/2021 00:00 06/24/2021 00:00 07/22/2021 00:00 WBC Unknown 7.31 6.17 6.56 7.23 Hemoglobin Unknown 8.2 8.5 8.5 9.0 Hematocrit Unknown 26.4 28.2 28.3 30.3 MCV Unknown 97.1 97.9 97.7 Platelets Unknown 199 171 155 169 Neutr Abs (ANC) Unknown 4.69 3.7 3.95 4.23 documented in this encounter Plan of Treatment Upcoming Encounters Date Type Specialty Care Team Description 05/26/2022 Office Visit Otolaryngology Ricardo Panda PA [facility] [address] [place] [address] (Wo rk) 06/02/2022 Infusion Hematology and Oncology 06/16/2022 Infusion Hematology and Oncology 06/21/2022 Office Visit Neurology Tyler Rojas MD [facility] Neurology [place], [place] [phone] (Wo rk) 06/30/2022 Infusion Hematology and Oncology 07/14/2022 Infusion Hematology and Oncology 07/28/2022 Infusion Hematology and Oncology 08/11/2022 Infusion Hematology and Oncology 11/04/2022 Office Visit Rheumatology Dante Freedman PA [facility] RHEUMATOLOGY [place] [address] (Wo rk) documented as of this encounter Procedures Procedure Name Priority Date/Time Associated Diagnosis Comme nts CBC (WITH DIFF) Routine 07/22/2021 Results for this procedure are in the resu lts section. documented in this encounter Results CBC (with Diff) (07/22/2021) P athologist Signature WBC 7.23 Hemoglobin 9.0 Hematocrit 30.3 MCV 97.7 Platelets 169 Neutr Abs (ANC) 4.23 Specimen (Source) Anatomical Location Collection Method / Collectio n Time Received Time / Laterality Volume Blood Historical Provider MD HEMATOLOGY ORDERABLES documented in this encounter Visit Diagnoses Not on filedocumented in this encounter Care Teams Cuff Turner Machine Operator Relationship Specialty Start Date End Date Violetta Sanford MD PCP - General 04/02/14 [address] [place] [address] documented as of this encounter
--- OUTSIDE RECORDS SUMMARY | 2022-05-24 10:49 | XMS_ITS | Encounter Summary ---
:1955 Author Organization [facility] [place] [address] Care Team Providers Name Role Phone Violetta Sanford MD Primary Care Provider Reason for Visit Reason Onset Date Comments Follow-up 05/25/2021 Encounter Details Date Type Department Care Team Description 05/25/2021 Telephone [place] [facility] [place] [phone] Social History Tobacco Use Types Packs/Day [...] Telephone Encounter - Wes Wise RN - 05/25/2021 10:19 AM EDT Reuben calls to report he missed a call from his provider. documented in this encounter Plan of Treatment Upcoming Encounters Date Type Specialty Care Team Description 05/26/2022 Office Visit Otolaryngology Ricardo Panda PA [facility] [address] [place], [place] [address] (Wo rk) 06/02/2022 Infusion Hematology and Oncology 06/16/2022 Infusion Hematology and Oncology 06/21/2022 Office Visit Neurology Tyler Rojas MD [facility] Neurology [place], [place] [phone] (Wo rk) 06/30/2022 Infusion Hematology and Oncology 07/14/2022 Infusion Hematology and Oncology 07/28/2022 Infusion Hematology and Oncology 08/11/2022 Infusion Hematology and Oncology 11/04/2022 Office Visit Rheumatology Dante Freedman PA [facility] RHEUMATOLOGY [place], [place] [address] (Wo rk) documented as of this encounter Visit Diagnoses Not on filedocumented in this encounter Care Teams Cordwood Cutter Relationship Specialty Start Date End Date Violetta Sanford MD PCP - General 04/02/14 [address] [place] [address] documented as of this encounter
--- OUTSIDE RECORDS SUMMARY | 2022-05-24 10:49 | XMS_ITS | Encounter Summary ---
:1955 Author Organization [facility] [place] [address] Care Team Providers Name Role Phone Violetta Sanford MD Primary Care Provider Encounter Details Date Type Department Care Team Description 04/16/2021 Telephone Solid Organ [place]plant [place] [address] Social History Tobacco Use Types Packs/Day Years [...] Telephone Encounter - Aria Khan RN - 04/16/2021 10:09 AM EDT Pt called to report he went to local [facility] care for and had a boil lanced. He two more boils; the provider at urgent care has recommended antibiotic treatment. I also received a call from the [facility] provider who requested we prescribe an antibiotic due to the complexity of the pt. Per Dr. Garnett: Keflex 500 mg in the morning, 250 mg at lunch and 500 mg at bed time X 14 days I relayed this information to the pt who states understanding and was able to read back the dosing. Script sent to his local pharmacy at his request. documented in this encounter Plan of Treatment Upcoming Encounters Date Type Specialty Care Team Description 05/26/2022 Office Visit Otolaryngology Ricardo Panda PA [facility] [address] [place], [place] [address] (Wo rk) 06/02/2022 Infusion Hematology and Oncology 06/16/2022 Infusion Hematology and Oncology 06/21/2022 Office Visit Neurology Tyler Rojas MD [facility] Neurology [place], [place] [phone] (Wo rk) 06/30/2022 Infusion Hematology and Oncology 07/14/2022 Infusion Hematology and Oncology 07/28/2022 Infusion Hematology and Oncology 08/11/2022 Infusion Hematology and Oncology 11/04/2022 Office Visit Rheumatology Dante Freedman PA [facility] RHEUMATOLOGY [place], [place] [address] (Wo rk) documented as of this encounter Visit Diagnoses Not on filedocumented in this encounter Care Teams Sheet Finisher Relationship Specialty Start Date End Date Violetta Sanford MD PCP - General 04/02/14 [facility] [address] [place] [address] documented as of this encounter
--- OUTSIDE RECORDS SUMMARY | 2022-05-24 10:49 | XMS_ITS | Encounter Summary ---
:1955 Author Organization [facility] [place] [address] Care Team Providers Name Role Phone Violetta Sanford MD Primary Care Provider Reason for Visit Reason Comments Follow-up Encounter Details Date Type Department Care Team Description 05/05/2021 Office Visit [place]ology [place] [facility] Dante Freedman Osteoarthritis of multiple j oints, unspecified osteoarthritis type (Primary Dx); [facility] DA Gilbert Immunosuppression; [facility] [place] [phone] CENTER [phone] [place] [address] Social History Tobacco Use Types Packs/Day Years [...] Sign Reading Time Taken Comments Blood Pressure 123/45 05/05/2021 3:06 PM EDT Pulse 65 05/05/2021 3:06 PM EDT Temperature - - Respiratory Rate 16 05/05/2021 3:06 PM EDT Oxygen Saturation 99% 05/05/2021 3:06 PM EDT Inhaled Oxygen Concentration - - Weight 123.4 kg (272 lb 0.8 oz) 05/05/2021 3:06 PM EDT Height 190.5 cm (6' 3) 05/05/2021 3:06 PM EDT Body Mass Index 34 05/05/2021 3:06 PM EDT documented in this encounter Patient Instructions Patient InstructionsSlaDante sandoval PA - 05/05/2021 3:30 PM EDT Follow up 6 months Pt to call with efficacy of left wrist injection Will consider tramadol documented in this encounter Progress Notes Dante Freedman PA - 05/05/2021 3:30 PM EDTSummary: OA Rheumatology Outpatient Note Chart review [...] of Present Illness: Leroy Torres is a 65 y.o. male who presents today for evaluation of OA. 10/28/20:Impression/Recommendations : Leroy Torres is a 65 y.o. male who presents today with osteoarthritis patient with no features by exam or history suggestive of inflammatory arthritis using conservative measures to control his arthralgias he thinks he is doing good enough at this point. He desires no specific intervention we will see him again in follow-up in a as needed basis. Patient and in agreement with this plan. Interval History:Patient presents today for follow-up. He reports interarticular injections in his hands were not effective. He still has some ongoing stiffness only reports a few moments of morning stiffness with a sense of low-grade arthralgias in his hands on most days there is been no fevers infectious-like symptoms red warm swollen joints. He does have a change per nephrologyfailing graft, considering DD kidney 13??years out with creatinine rise to 3.47??mg/dL and progressive proteinuria most likely due to diabetic nephropathy recurrence. He has tried a number of conservative measures for his hand arthralgias including paraffin machine, and topical preparations that do not seem to provide him with any Significant relief. He does take Tylenol from time to time although it does not seem to help his hand arthralgias. Review of Systems Constitutional: Negative for anorexia, diaphoresis and malaise/fatigue. Respiratory: Negative for cough, shortness of breath and hemoptysis. Gastrointestinal: Negative for steatorrhea, diarrhea and trouble swallowing. HENT: Negative. Psychiatric/Behavioral: Negative for social aversion. Hematologic/Lymphatic: Negative. Allergic/Immunologic: Negative for recurrent infections and immunocompromised state. Musculoskeletal: Positive for joint pain and stiffness (minor). Negative for joint swelling and fracture. Endocrine: Negative for polydipsia, polyphagia, polyuria and Cushingoid appearance. Neurological: Negative for vertigo. Skin: Negative for dry skin, urticaria, blister, photosensitivity and erythema. Allergies Allergies Allergen Reactions ??? Penicillins Anaphylaxis ??? Iftikhar Inhibitors Cough ??? Clindamycin Hcl Rash ??? Allergenic Extracts Birch and Nut Trees, cats, dust, pollen bird feathers ??? Ibuprofen ??? Sulfamethoxazole-Trimethoprim Medications Current Outpatient Medications on File Prior to Visit Medication Sig Dispense Refill ??? insulin aspart U-100 (NovoLOG) Cartridge Inject subcutaneously 3 times daily (with meals). Sliding scale ??? hydrALAZINE (Apresoline) 100 mg Tablet Take 1 tablet by mouth 3 times daily. 270 tablet 2 ??? FreeStyle Gilberto 14 Day Sensor Kit 1 each by [facility].(Non-Drug; Combo Route) route every 14 days. Use to continuously monitor blood glucose. Scan at least 5 times per day. DX: E11.65 6 kit 3 ??? Gvoke PFS 1-Pack Syringe 1 mg/0.2 mL Syringe Inject 1 each subcutaneously as needed (as needed for severe hypoglycemia). Repeat with new unit if no response after 15 minutes. 2 Syringe 11 ??? darbepoetin cristy in polysorbat 10 mcg/0.4 mL Syringe Inject 300 mg as directed as needed. ??? cyanocobalamin, Vitamin B-12, (Vitamin B-12) 100 mcg Tablet Take 100 mcg by mouth daily. ??? Prograf 1 mg Capsule Take 1 capsule by mouth daily. Kidney transplant 02/29/2008 dx code Z94.0 D/Cdate 03/11/2008 30 capsule 11 ??? Prograf 0.5 mg Capsule Take 1 capsule by mouth nightly. Kidney transplant 02/29/2008 dx code Z94.0D/C date 03/11/2008 30 capsule 11 ??? CellCept 250 mg Capsule Take 2 capsules by mouth 2 times daily. Kidney transplant 02/29/2008 dx code Z94.0 D/C date 03/11/2008 120 capsule 11 ??? losartan (Cozaar) 25 mg Tablet Take 1 tablet by mouth daily. 90 tablet 3 ??? guaiFENesin 200 mg Tablet Take 400 mg by mouth every 4 hours as needed for Congestion. ??? Blood-Glucose Sensor ([facility] G6 Sensor) Device by [facility].(Non-Drug; Combo Route) route. Sensor, principle industrial hygienist andtransmitter ??? metoprolol succinate XL (Toprol-XL) 50 mg Tablet Sustained Release 24 hr Take 1 tablet by mouth daily. 90 tablet 1 ??? amLODIPine (Norvasc) 10 mg Tablet Take 0.5 tablets by mouth daily. 90 tablet 3 ??? fluticasone propionate (FLONASE) 50 mcg/actuation [place], Suspension INSTILL 2 SPRAYS INTO EACH NOSTRIL ONCE A DAY NEEDED ??? triamcinolone (NASACORT or NASACORT OTC) 55 mcg Aerosol, [place] 2 sprays by Nasal route daily. 1 Inhaler 12 ??? albuterol (PROVENTIL) 2.5 mg /3 [...] gauge x 1/2 Needle 1 Device by [facility].(Non- Drug; Combo Route) route 3 times daily. [...] needed for Pain. Reported on 08/06/2016 ??? STIOLTO RESPIMAT 2.5-2.5 mcg/actuation Mist Inhale 2 puffs into the lungs daily. 1 ??? Miscellaneous Medical Supply [facility] 4 Devices by [facility].(Non-Drug; Combo Route) route daily. Rubber sheath for leg prosthesis (2 pairs) 4 each PRN ??? VENTOLIN HFA 90 mcg/actuation HFA Aerosol Inhaler Inhale 2 puffs into the lungs as needed. 0 ??? Insulin Lispro (HUMALOG) 100 unit/mL Insulin Pen Inject 15-30 Units subcutaneously 4 times daily. ??? BD INSULIN PEN NEEDLE UF ORIG 29 gauge x 1/2 Needle 0 ??? aspirin 81 mg EC tablet Take 81 mg by mouth daily. ??? montelukast (SINGULAIR) 10 mg tablet Take 10 mg by mouth daily. No current facility-administered [...] COPD (chronic obstructive pulmonary disease) J44.9 ??? termination clerk current use of immunosuppressive drug Z79.899 ??? 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 Essential hypertension I10 SurgHX Past Surgical History: Procedure Laterality Date [...] BELOW-KNEE performed by HENNA GAMINO JR at [facility] MAIN OR ??? PRO LAP, APPENDECTOMY 06/16/2013 LAPAROSCOPIC APPENDECTOMY performed by Angel Mccann MD at [facility] MAIN OR ??? US RENAL TRANSPLANT LEFT Left 06/26/2019 US Renal Transplant Left 06/26/2019 [facility] RAD ULTRASOUND Physical Examination: BP 123/45 Pulse 65 Resp 16 Ht 190.5 cm (6' 3) Wt 123.4 kg (272 lb 0.8 oz) SpO2 99% BMI 34.00 kg/m?? Musculoskeletal: No peripheral synovitis erythema warmth noted Negative Tinel's negative Phalen's Physical Exam Constitutional: General: He is not in acute distress. Appearance: He is obese. He is not ill-appearing, toxic-appearing or diaphoretic. HENT: Head: Normocephalic and atraumatic. Right Ear: External ear normal. Left Ear: External ear normal. Nose: Nose normal. Eyes: General: No scleral icterus. Right eye: No discharge. Left eye: No discharge. Conjunctiva/sclera: Conjunctivae normal. Pulmonary: Breath sounds: Normal breath sounds. Abdominal: Palpations: Abdomen is soft. Musculoskeletal: General: No swelling or tenderness. Skin: General: Skin is warm and dry. Coloration: Skin is not jaundiced or pale. Findings: No bruising, erythema, lesion or rash. Neurological: Mental Status: He is alert and oriented to person, place, and time. Psychiatric: Mood and Affect: Mood normal. Behavior: Behavior normal. Thought Content: Thought content normal. Judgment: Judgment normal. Impression/Recommendations : Leroy Torres is a 65 y.o. male who presents today with osteoarthritis patient with failing kidney transplant being followed carefully. Patient has failed conservative measures namely topical preparations [id number] and paraffin. Patient reports no good success [...] Patient and in agreement with this plan. documented in this encounter Plan of Treatment Upcoming Encounters Date Type Specialty Care Team Description 05/26/2022 Office Visit Otolaryngology Ricardo Panda PA [facility] [address] [place] [address] (Wo rk) 06/02/2022 Infusion Hematology and Oncology 06/16/2022 Infusion Hematology and Oncology 06/21/2022 Office Visit Neurology Tyler Rojas MD [facility] Neurology [place], [place] [phone] (Wo rk) 06/30/2022 Infusion Hematology and Oncology 07/14/2022 Infusion Hematology and Oncology 07/28/2022 Infusion Hematology and Oncology 08/11/2022 Infusion Hematology and Oncology 11/04/2022 Office Visit Rheumatology Dante Freedman PA [facility] RHEUMATOLOGY [place], [place] [address] (Wo rk) documented as of this encounter Visit Diagnoses Diagnosis Osteoarthritis of multiple joints, unspe cified osteoarthritis type - Primary Immunosuppression Unspecified disorder of immune mechanism H/O kidney transplant Kidney replaced by transplant documented in this encounter Care Teams Perforator Operator Relationship Specialty Start Date End Date Violetta Sanford MD PCP - General 04/02/14 [address] [place] [address] documented as of this encounter
--- OUTSIDE RECORDS SUMMARY | 2022-05-24 10:49 | XMS_ITS | Encounter Summary ---
:1955 Author Organization [facility] [place] [address] Care Team Providers Name Role Phone Violetta Sanford MD Primary Care Provider Reason for Visit Reason Comments Injections Aranesp Anemia Treatment/Therapy Plan Authorization (Routine) - Authorized Specialty Diagnoses / Procedures Referred By Contact Refer red To Contact Hematology and Diagnoses CKD (chronic kidney disease) stage 4, GFR 15-29 ml/min Nicky Baez [facility] Hem Onc Office Oncology Procedures ALFREDA Ramirez MD [address] [place] [address] HEMATOLOGY/ONCOLOGY [phone] [place] [address] Referral ID Status Reason Start Date Expiration Date Visits V isits Requested Authorized [id number] Authorized 10/08/2020 06/23/2022 99 99 Encounter Details Date Type Department Care Team Description 04/15/2021 Infusion Hematology Oncology at [facility] D (chronic kidney disease) [facility] stage 4, GFR 15-29 ml/min [address] [place] [phone] Social History Tobacco Use Types [...] Sign Reading Time Taken Comments Blood Pressure 136/50 04/15/2021 1:43 PM EDT Pulse 65 04/15/2021 1:43 PM EDT Temperature 36.8 ??C (98.2 ??F) 04/15/2021 1:43 PM EDT Respiratory Rate 18 04/15/2021 1:43 PM EDT Oxygen Saturation 100% 04/15/2021 1:43 PM EDT Inhaled Oxygen Concentration - - Weight - - Height - - Body Mass Index - - documented in this encounter Progress Notes Amena Burnette RN - 04/15/2021 2:00 PM EDT INFUSION THERAPY ADMINISTRATION NOTES DIAGNOSIS: Anemia d/t CKD stage IV, h/o kidney transplant REASON FOR VISIT: Aranesp Injection SUBJECTIVE Mr. Torres is here for his Aranesp injection. He is doing well overall, had a boil lanced yesterday under his left arm which is causing mild discomfort (2/10). He otherwise offers no complaints. OBJECTIVE LAB DATA: 04/15 labs - Hgb 8.3 Pre administration: Orders independently verified for drug name, route, and dosage by Sumeet Burnette RN and pharmacist on-site. REACTIONS (DESCRIPTION, TIME, INTERVENTION AND EFFECTIVENESS) none ASSESSMENT Mr. Torres was awake, alert and he tolerated treatment well. PLAN Return to clinic in 3 weeks for appt with Dr. Baez and possible Aranesp. Patient was reminded tocall in the interim with any questions/concerns. documented in this encounter Plan of Treatment Upcoming Encounters Date Type Specialty Care Team Description 05/26/2022 Office Visit Otolaryngology Ricardo Panda PA [facility] [address] [place], [place] [address] (Wo rk) 06/02/2022 Infusion Hematology and Oncology 06/16/2022 Infusion Hematology and Oncology 06/21/2022 Office Visit Neurology Tyler Rojas MD [facility] er Neurology [place], [place] [phone] (Wo rk) 06/30/2022 Infusion Hematology and Oncology 07/14/2022 Infusion Hematology and Oncology 07/28/2022 Infusion Hematology and Oncology 08/11/2022 Infusion Hematology and Oncology 11/04/2022 Office Visit Rheumatology Dante Freedman PA [facility] ER RHEUMATOLOGY [place], [place] [address] (Wo rk) documented as of this encounter Visit Diagnoses Diagnosis CKD (chronic kidney disease) stage 4, GF R 15-29 ml/min Chronic kidney disease, Stage IV (severe ) documented in this encounter Administered Medications Inactive Administered Medications - up to 3 most recent administrations Medication Order MAR Action Action Date Dose Rate Site darbepoetin cristy-polysorbate Given 04/15/2021 1:57 PM EDT 300 mc g Right Arm (Aranesp) (300 mcg/0.6 mL) injection 300 mcg 300 mcg, Subcutaneous, ONCE, 1 dose, On Tue04/15/21 at 1400, Hold parameters for MDS and chemotherapy-induced anemia: Hemoglobin greater than or equal to 10 gm/dL Hematocrit greater than or equal to 30% Hold parameters for CKD: Hemoglobin greater than or equal to 12 gm/dL Hematocrit greater than or equal to 36%, Routine, What is the indication of use? Chronic Kidney Disease (CKD) documented in this encounter Care Teams Sheet Manager Relationship Specialty Start Date End Date Violetta Sanford MD PCP - General 04/02/14 [address] [place] [address] documented as of this encounter
--- OUTSIDE RECORDS SUMMARY | 2022-05-24 10:49 | XMS_ITS | Encounter Summary ---
:1955 Author Organization [facility] [place] [address] Care Team Providers Name Role Phone Violetta Sanford MD Primary Care Provider Reason for Visit Reason Onset Date Comments Labs Only 05/27/2021 lab tracking Encounter Details Date Type Department Care Team Description 05/27/2021 Telephone Hematology/Oncology at Brittany Vera RN Labs Only (lab tracking) [address] [phone] Social History Tobacco Use Types [...] Telephone Encounter - Brittany Vera RN - 05/27/2021 1:22 PM EDT LAB TRACKING Brett Dailey [id number] 1955 DIAGNOSIS: anemia d/t CKD stage IV, h/o kidney transplant LABS: CBC every 4 weeks as of 05/27/21 MEDICATIONS: Aranesp 300 mcg every 2 weeks if HGB <12 as of 05/27/21 ASSESSMENT/PLAN: Dr. Baez saw pt in clinic, He will now get aranesp every 2 weeks 300 mcg. CBC once a month. Next dose on 06/09 due to pt can't be here 06/10. Then cbc And aranesp on 06/24. Results for BRETT DAILEY ( ) as of 05/27/2021 13:21 Ref. Range 03/25/2021 00:00 04/15/2021 00:00 05/06/2021 00:00 05/27/2021 00:00 WBC Unknown 7.54 9.16 7.31 6.17 Hemoglobin Unknown 8.8 8.3 8.2 8.5 Hematocrit Unknown 28.8 27.1 26.4 28.2 MCV Unknown 97.0 97.5 97.1 Platelets Unknown 182 183 199 171 Neutr Abs (ANC) Unknown 4.81 5.91 4.69 3.7 documented in this encounter Plan of Treatment Upcoming Encounters Date Type Specialty Care Team Description 05/26/2022 Office Visit Otolaryngology Ricardo Panda PA [facility] [address] [place] [address] (Wo rk) 06/02/2022 Infusion Hematology and Oncology 06/16/2022 Infusion Hematology and Oncology 06/21/2022 Office Visit Neurology Tyler Rojas MD [facility] [place] [phone] (Wo rk) 06/30/2022 Infusion Hematology and Oncology 07/14/2022 Infusion Hematology and Oncology 07/28/2022 Infusion Hematology and Oncology 08/11/2022 Infusion Hematology and Oncology 11/04/2022 Office Visit Rheumatology Dante Freedman PA [facility] ER [place]Y [place] [address] (Wo rk) documented as of this encounter Visit Diagnoses Not on filedocumented in this encounter Care Teams Deputy Clerk Relationship Specialty Start Date End Date Violetta Sanford MD PCP - General 9/9/14 [address] [place] [address] documented as of this encounter
--- OUTSIDE RECORDS SUMMARY | 2022-05-24 10:49 | XMS_ITS | Encounter Summary ---
:1955 Author Organization [facility] [place] [address] Care Team Providers Name Role Phone Violetta Sanford MD Primary Care Provider Reason for Referral Consultation (Routine) - Closed Specialty Diagnoses / Procedures Referred By Contact Refer red To Contact Otolaryngology Diagnoses Hearing loss of left ear, unspecified hearing loss type Donell Hernandez MD [facility] [place] Otolaryngology [address] [place] [address] [place] [address] [place] [address] Referral ID Status Reason Start Date Expiration Date Visits V isits Requested Authorized [id number] Closed Consult, 03/06/2021 03/06/2022 1 1 Test & Treat Encounter Details Date Type Department Care Team Description 03/06/2021 Office Visit Endocrinology at [facility] Donell Hardin, Hearing loss of left ear, un specified hearing loss type; [facility] Type 2 diabetes mellitus with hyperglyce maki, with long-term current use of insulin; [facility] CKD (chronic kidney disease) stage 4, GFR 15-29 ml/min; [place] [address] CENTER S/P bilateral BKA (below knee amputation ) [phone] ENDO[address] DEPT. [place], [place] [address] Social History Tobacco Use Types [...] Sign Reading Time Taken Comments Blood Pressure 135/53 03/06/2021 1:12 PM EDT Pulse 64 03/06/2021 1:12 PM EDT Temperature 36.4 ??C (97.6 ??F) 03/06/2021 1:12 PM EDT Respiratory Rate - - Oxygen Saturation 100% 03/06/2021 1:12 PM EDT Inhaled Oxygen Concentration - - Weight 132.5 kg (292 lb) 03/06/2021 1:12 PM EDT Height 194.3 cm (6' 4.5) 03/06/2021 1:12 PM EDT Body Mass Index 35.08 03/06/2021 1:12 PM EDT documented in this encounter Patient Instructions Patient InstructionsDonell Hernandez MD - 03/06/2021 1:30 PM EDT I recommended cutting back the am levemire to 55 units Continue the evening levemire at 55 units Increase the aspaart (novolog ) insulin to 20 units per meal documented in this encounter Progress Notes Donell Hernandez MD - 03/06/2021 1:30 PM EDT Year of diagnosis: Regimen ____ oral agents only ____ basal insulin __x__ basal and meal insulin/pump Diagnosis codes 250.03 ___ Type 1 250.02 __x__Type 2 Glucose test strip brand: one touch Number of Tests prescribed per day ___ 2 ___ 3 _x__ 4 ___ 5-8 ___>8 Prescriber: johnny Hernandez MD _YESSENIA Aguirre _ Suki Lynn MD _ MD Sharon Oneil MD Justification for more than 3 tests [...] bka R and morbid obesity. From Jun 2020 1) DM2 -he now has superb control. There is no use of erythropoietin to artefactually lower the HA1c. He is now at some risk for low sugar events and I recommend sutting back to 55 of levemire bid if low sugars start to occur 2)CKD3 - in transplant - slowly deteriorating function 3) retinopathy - quiet at present but has not seen ophthamology for a year 4) history of renal transplant- is immunocompromised Interim history Renal function is deteriorating- eGFR now < 20 Now getting regular infusion sof aranesp (erythyropoietin) Liraglutide is now 1.2, was 1.8 Continues on losartan 25 Using emu cream for hand pain - helpful Regimen Basal levemir 60/55 bid victoza 1.2 Bolus 18 units per meal CF 1:4 Uses a sliding scale hbgm 4 x a day 130-200 most days for fbs Hypo none Diet B Cereal (KoffeeKup donuts are gone !) Sn Bagel L Chicken gumbo (here, very little) Sn D Mac and cheese and corn Sn cookies Exercise New legs Does housework complications Eyes prior laser therapy Feet Bilateral BKA Kidneys + renal transplant autonomic: no gastroparesis bladder hypo unaware tachycardia cardiac no chest pain on exertion no shortness of breath at rest No history of stent cabg chf prevention: last eye exam: July 2020 last microalbumin :n/a last Cr: today last lipid panel: today regular stitcher feeder:no special shoes:no flu shot :yes pneumovax: 2011 prevnar 2014 acei yes Asa Yes statin yes NO shingles shot permitted by transplant team Appearance: looks well wt Change Down 8 lbs from 07/13 Ht 194.3 cm (6' 4.5) Wt 132.5 kg (292 lb) BMI 35.08 kg/m?? eyes: no retinopathy seen by green light [...] >=60 mL/min/1.73 m?? 27.62 27.62 26 (L) 1) DM2 -he is requiring less insulin [...] Will refer to our otolaryngology to evaluate/treat. This was a 40 min visit in total time for precharting, interview and counseling, review of labs as above, ordering labs and charting documented in this encounter Plan of Treatment Upcoming Encounters Date Type Specialty Care Team Description 05/26/2022 Office Visit Otolaryngology Ricardo Panda PA [facility] [address] [place], [place] [address] (Wo rk) 06/02/2022 Infusion Hematology and Oncology 06/16/2022 Infusion Hematology and Oncology 06/21/2022 Office Visit Neurology Tyler Rojas MD [facility] Neurology [place], [place] [phone] (Wo rk) 06/30/2022 Infusion Hematology and Oncology 07/14/2022 Infusion Hematology and Oncology 07/28/2022 Infusion Hematology and Oncology 08/11/2022 Infusion Hematology and Oncology 11/04/2022 Office Visit Rheumatology Dante Freedman PA [facility] RHEUMATOLOGY [place], [place] [address] (Wo rk) Scheduled Referrals Name Type Priority Associated Diagnoses Order S chedule Referral to ENT Outpatient Referral Routine Hearing loss of le ft Ordered: ear, unspecified 03/06/2021 hearing loss type documented as of this encounter Results (ABNORMAL) Hemoglobin A1c (10/05/2021 8:39 AM EDT) Analysis Performed At [facility] Time Signature Hemoglobin A1C 6.4 (H) 4.3 - 5.6 [facility] Comment: Reference Range: 4.3 - [...] Mellitus, Diabetes Care 2013; 36: Suppl. 1, V27-80 Est Avg Gluc 138 mg/dL [facility] Comment: eAG equivalents for HbA1c percentages: HbA1c(%) ?eAG(mg/dL) 6.0 ?126 6.5 ?140 7.0 ?154 7.5 ?169 8.0 ?183 8.5 ?197 9.0 ?212 9.5 ?226 10.0 ? 240 Limitations: The eAG calculation has not been validated on women, individuals below 18 years old and above 70 years old, and individuals with hemoglobinopathies. Additional resources are available on [facility] ADA website. Scooby MALDONADO, Nba J, Sydnee R, et al. ??Tr anslating the A1C assay into estimated average glucose values. ??Diabetes Care 2008:31(8):6662-5846. Specimen Anatomical Collection Method Collection Time Receive d Time (Source) Location / / Volume Laterality Blood 10/05/2021 8:39 AM 8:52 EDT AM EDT Resulting Agency Comment Spec In Lab Donell Hernandez MD CHEMISTRY ORDERABLES Performing Organization Address City/State/[place] [address] documented in this encounter Visit Diagnoses Diagnosis Hearing loss of left ear, unspecified he aring loss type Type 2 diabetes mellitus with hyperglyce maki, with long-term current use of insulin CKD (chronic kidney disease) stage 4, GF R 15-29 ml/min Chronic kidney disease, Stage IV (severe ) S/P bilateral BKA (below knee amputation ) Lower limb amputation, below knee documented in this encounter Care Teams Sales Training Coordinator Relationship Specialty Start Date End Date Violetta Sanford MD PCP - General 04/02/14 [address] [place] [address] documented as of this encounter
--- OUTSIDE RECORDS SUMMARY | 2022-05-24 10:49 | XMS_ITS | Encounter Summary ---
:1955 Author Organization [facility] [place] [address] Care Team Providers Name Role Phone Violetta Sanford MD Primary Care Provider Reason for Visit Reason Comments Medication Refill Encounter Details Date Type Department Care Team Description 08/17/2021 Refill Solid Organ Transplant at [facility] Alejo france MD [facility] Giovana tyler [place] [address] [place] [address] [phone] (Wo rk) Social History Tobacco Use Types [...] PA [facility] [address] [place], [place] [address] (Wo rk) 06/02/2022 Infusion Hematology and Oncology 06/16/2022 Infusion Hematology and Oncology 06/21/2022 Office Visit Neurology Tyler Rojas MD [facility] Medical [facility] er Neurology [place], [place] [phone] (Wo rk) 06/30/2022 Infusion Hematology and Oncology 07/14/2022 Infusion Hematology and Oncology 07/28/2022 Infusion Hematology and Oncology 08/11/2022 Infusion Hematology and Oncology 11/04/2022 Office Visit Rheumatology Dante Freedman PA [facility] ER RHEUMATOLOGY [place], [place] [address] (Wo rk) documented as of this encounter Visit Diagnoses Not on filedocumented in this encounter Care Teams Stringed Instrument Tuner Relationship Specialty Start Date End Date Violetta Sanford MD PCP - General 04/02/14 [address] [place] [address] documented as of this encounter
--- OUTSIDE RECORDS SUMMARY | 2022-05-24 10:49 | XMS_ITS | Encounter Summary ---
:1955 Author Organization [facility] [place] [address] Care Team Providers Name Role Phone Violetta Sanford MD Primary Care Provider Encounter Details Date Type Department Care Team Description 05/25/2021 Telephone Endocrinology at [facility] Robert Tran, [place] [address] Social History Tobacco Use Types Packs/Day [...] this encounter Miscellaneous Notes Telephone Encounter - Robert Tran RN - 05/25/2021 12:26 PM EDT Received voicemail from Khloe Bell at PCP office. She is hoping we can update her and the patient on where the [employer] It Original 2 paperwork stands on our end. documented in this encounter Plan of Treatment Upcoming Encounters Date Type Specialty Care Team Description 05/26/2022 Office Visit Otolaryngology Ricardo Panda PA [facility] [place], [place] [address] (Wo rk) 06/02/2022 Infusion Hematology and Oncology 06/16/2022 Infusion Hematology and Oncology 06/21/2022 Office Visit Neurology Tyler Rojas MD [facility] Neurology [place], [place] [phone] (Wo rk) 06/30/2022 Infusion Hematology and Oncology 07/14/2022 Infusion Hematology and Oncology 07/28/2022 Infusion Hematology and Oncology 08/11/2022 Infusion Hematology and Oncology 11/04/2022 Office Visit Rheumatology Dante Freedman PA [facility] RHEUMATOLOGY [place], [place] [address] (Wo rk) documented as of this encounter Visit Diagnoses Not on filedocumented in this encounter Care Teams Scouts Relationship Specialty Start Date End Date Violetta Sanford MD PCP - General 04/02/14 [address] [place] [address] documented as of this encounter
--- OUTSIDE RECORDS SUMMARY | 2022-05-24 10:49 | XMS_ITS | Encounter Summary ---
:1955 Author Organization [place] [address] Care Team Providers Name Role Phone Violetta Sanford MD Primary Care Provider Encounter Details Date Type Department Care Team Description 05/27/2021 Office Visit Hematology/Oncology [facility] 4, G[facility] [address] [facility] 15-29 ml/[place] [address] HEMATOLOGY/ONCOLOGY [phone] DEPT[address] [place] [phone] (Wo rk) Social History Tobacco Use Types [...] Sign Reading Time Taken Comments Blood Pressure 132/46 05/27/2021 12:28 PM EDT Pulse 73 05/27/2021 12:28 PM EDT Temperature 36.5 ??C (97.7 ??F) 05/27/2021 12:28 PM EDT Respiratory Rate 16 05/27/2021 12:28 PM EDT Oxygen Saturation 100% 05/27/2021 12:28 PM EDT Inhaled Oxygen Concentration - - Weight 126.1 kg (278 lb) 05/27/2021 12:28 PM EDT Height 190.5 cm (6' 3) 05/27/2021 12:28 PM EDT Body Mass Index 34.75 05/27/2021 12:28 PM EDT documented in this encounter Progress Notes Nicky Baez MD - 05/27/2021 12:30 PM EDT Subjective: Patient ID: Leroy Torres is a 66 y.o. 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 Followed by Dr Garnett at [facility]. Seen for epo supplementation. Patient Active Problem List Diagnosis ??? Essential hypertension ??? Renal osteodystrophy ??? Other postherpetic nervous system involvement ??? Renal tubular acidosis ??? Hypervolemia ??? PAF (paroxysmal atrial fibrillation) ??? Phantom limb pain ??? Chronic atrial fibrillation ??? CKD (chronic kidney disease) stage 4, GFR 15-29 ml/min ??? Prophylactic immunotherapy ??? Persistent proteinuria ??? 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 Aftercare [...] for weakness and numbness. Psychiatric/Behavioral: Negative. Objective: Physical Exam BP 132/46 (Patient Position: Sitting) Pulse 73 Temp 36.5 ??C (97.7 ??F) (Temporal) Resp 16 Ht 190.5 cm (6' 3) Wt 126.1 kg (278 lb) SpO2 100% BMI 34.75 kg/m?? LABS: Recent Results (from the past 72 hour(s)) CBC (with Diff) Result Value Ref Range WBC 6.17 Hemoglobin 8.5 Hematocrit 28.2 Platelets 171 Neutr Abs (ANC) 3.7 Assessment and Plan: Leroy Torres is a [...] 8-9 range despite Aranesp 300 mg every 3 weeks. He is tolerating it well and has seen an improvement in his activity. ? I do not anticipate that his hemoglobin will reach a normal level as a componant of his anemia is anemia of chronic disease. He saw Dr. Garnett within the last month, who is also disappointed that hehas not had a more robust response to the Aranesp. Dr. Garnett. and asked (through the patient) that we increase the dose. He is on maximum dose but we can decrease the interval to every 2 weeks which will probably review. ?? We will continue with aranesp 300mcg but as of 05/27/21 we will decrease the interval to every 2 weeks. ?Reuben will RTC in 4 months to see how he is doing. He will call sooner if any concerns or changes in status. ? documented in this encounter Plan of Treatment Upcoming Encounters Date Type Specialty Care Team Description 05/26/2022 Office Visit Otolaryngology Ricardo Panda PA [facility] [address] [place], [place] [address] (Wo rk) 06/02/2022 Infusion Hematology and Oncology 06/16/2022 Infusion Hematology and Oncology 06/21/2022 Office Visit Neurology Tyler Rojas MD [facility] Neurology [place], [place] [phone] (Wo rk) 06/30/2022 Infusion Hematology and Oncology 07/14/2022 Infusion Hematology and Oncology 07/28/2022 Infusion Hematology and Oncology 08/11/2022 Infusion Hematology and Oncology 11/04/2022 Office Visit Rheumatology Dante Freedman PA [facility] RHEUMATOLOGY [place], [place] [address] (Wo rk) documented as of this encounter Procedures Procedure Name Priority Date/Time Associated Diagnosis Comme nts CBC (WITH DIFF) Routine 05/27/2021 Results for this procedure are in the resu lts section. documented in this encounter Results CBC (with Diff) (05/27/2021) P athologist Signature WBC 6.17 Hemoglobin 8.5 Hematocrit 28.2 Platelets 171 Neutr Abs (ANC) 3.7 Specimen (Source) Anatomical Location Collection Method / Collectio n Time Received Time / Laterality Volume Blood 05/27/2021 Historical Provider HEMATOLOGY ORDERABLES documented in this encounter Visit Diagnoses Diagnosis CKD (chronic kidney disease) stage 4, GF R 15-29 ml/min Chronic kidney disease, Stage IV (severe ) documented in this encounter Care Teams Sap Business Objects Developer Relationship Specialty Start Date End Date Violetta Sanford MD PCP - General 04/02/14 [address] [place] [address] documented as of this encounter
--- OUTSIDE RECORDS SUMMARY | 2022-05-24 10:49 | XMS_ITS | Encounter Summary ---
:1955 Author Organization [facility] [place] [address] Care Team Providers Name Role Phone Violetta [...] Onc Office Oncology Procedures ALFREDA Ramirez MD [address] [place] [address] HEMATOLOGY/ONCOLOGY [id number] [place] [address] Referral ID Status Reason Start Date Expiration Date Visits V isits Requested Authorized [id number] Authorized 10/08/2020 06/23/2022 99 99 Encounter Details Date Type Department Care Team Description 07/22/2021 Infusion Hematology Oncology at [facility] D (chronic kidney disease) [facility] stage 4, GFR 15-29 ml/min [address] [place] [phone] Social History Tobacco Use Types [...] Sign Reading Time Taken Comments Blood Pressure 130/57 07/22/2021 1:48 PM EST Pulse 73 07/22/2021 1:48 PM EST Temperature 36.8 ??C (98.2 ??F) 07/22/2021 1:48 PM EST Respiratory Rate 20 07/22/2021 1:48 PM EST Oxygen Saturation 98% 07/22/2021 1:48 PM EST Inhaled Oxygen Concentration - - Weight - - Height - - Body Mass Index - - documented in this encounter Progress Notes Millie Kc RN - 07/22/2021 2:00 PM EST Infusion Note Diagnosis: CKD anemia Treatment: Aranesp Injection Labs: 07/22/21 - H/H - 9.0/30.3. Patient stated that Dr. Baez ordered labs monthly. Aranesp 300 mcg injected in right arm. Patient aware to call clinic with any questions or concerns. Plan: Return to clinic as scheduled. documented in this encounter Plan of Treatment Upcoming Encounters Date Type Specialty Care Team Description 05/26/2022 Office Visit Otolaryngology Ricardo Panda PA [facility] [address] [place] [address] (Oscar escobedo) 06/02/2022 Infusion Hematology and Oncology 06/16/2022 Infusion Hematology and Oncology 06/21/2022 Office Visit Neurology Tyler Rojas MD [facility] Dr [address]i [place] [phone] (Wo gregg) 06/30/2022 Infusion Hematology and Oncology 07/14/2022 Infusion Hematology and Oncology 07/28/2022 Infusion Hematology and Oncology 08/11/2022 Infusion Hematology and Oncology 11/04/2022 Office Visit Rheumatology Dante Freedman PA [facility] RHEUMATOLOGY [place], [place] [address] (Wo rk) documented as of this encounter Visit Diagnoses Diagnosis CKD (chronic kidney disease) stage 4, GF R 15-29 ml/min Chronic kidney disease, Stage IV (severe ) documented in this encounter Administered Medications Inactive Administered Medications - up to 3 most recent administrations Medication Order MAR Action Action Date Dose Rate Site darbepoetin cristy-polysorbate Given 07/22/2021 2:01 PM EST 300 mc g Right Arm (Aranesp) (300 mcg/0.6 mL) injection 300 mcg 300 mcg, Subcutaneous, ONCE, 1 dose, On Tue07/22/21 at 1400, Hold parameters for MDS and chemotherapy-induced anemia: Hemoglobin greater than or equal to 10 gm/dL Hematocrit greater than or equal to 30% Hold parameters for CKD: Hemoglobin greater than or equal to 12 gm/dL Hematocrit greater than or equal to 36%, Routine, What is the indication of use? Chronic Kidney Disease (CKD) documented in this encounter Care Teams Escrow Assistant Relationship Specialty Start Date End Date Violetta Sanford MD PCP - General 04/02/14 [address] [place] [address] documented as of this encounter
--- OUTSIDE RECORDS SUMMARY | 2022-05-24 10:49 | XMS_ITS | Encounter Summary ---
:1955 Author Organization [facility] [place] [address] Care Team Providers Name Role Phone Violetta Sanford MD Primary Care Provider Reason for Visit Reason Onset Date Comments Pump/sensor 2021 Encounter Details Date Type Department Care Team Description 2021 Telephone Endocrinology at [facility] Leny Kohler Pump/[place] [address] Social History Tobacco Use Types Packs/Day [...] this encounter Miscellaneous Notes Telephone Encounter - Gabby Lopez I - 05/25/2021 3:06 PM EDT BLN form faxed to [phone] on 05/25/21 Telephone Encounter - Leny Morales - 2021 10:35 AM EDT Practitioner order from [facility]. Filled out. Dr. Hernandez will sign. Secretaries will fax. Telephone Encounter - Leny Morales - 2021 8:05 AM EDT Received order from [facility] Will complete as soon as possible documented in this encounter Plan of Treatment Upcoming Encounters Date Type Specialty Care Team Description 05/26/2022 Office Visit Otolaryngology Ricardo Panda PA [facility] [address] [place], [place] [address] (Wo rk) 06/02/2022 Infusion Hematology and Oncology 06/16/2022 Infusion Hematology and Oncology 06/21/2022 Office Visit Neurology Tyler Rojas MD [facility] Neurology [place], [place] [phone] (Wo rk) 06/30/2022 Infusion Hematology and Oncology 07/14/2022 Infusion Hematology and Oncology 07/28/2022 Infusion Hematology and Oncology 08/11/2022 Infusion Hematology and Oncology 11/04/2022 Office Visit Rheumatology Dante Freedman PA [facility] RHEUMATOLOGY [place], [place] [address] (Wo rk) documented as of this encounter Visit Diagnoses Not on filedocumented in this encounter Care Teams Electrical Engineer Mep Relationship Specialty Start Date End Date Violetta Sanford MD PCP - General 04/02/14 [facility] AL[address] [place] [address] documented as of this encounter
--- OUTSIDE RECORDS SUMMARY | 2022-05-24 10:49 | XMS_ITS | Encounter Summary ---
:1955 Author Organization [facility] [address] Care Team Providers Name Role Phone Violetta Sanford MD Primary Care Provider Reason for Visit Reason Onset Date Comments Labs Only 04/15/2021 Lab Tracking Encounter Details Date Type Department Care Team Description 04/15/2021 Telephone Hematology/Oncology at [facility], Labs Only (Lab Tracking) [facility] Angelica Gilbert RN [address] [place] [phone] Social History Tobacco Use Types Packs/Day [...] Telephone Encounter - Angelica Malhotra RN - 04/15/2021 1:16 PM EDT LAB TRACKING Brett Dailey [id number] 1955 DIAGNOSIS: anemia d/t CKD stage IV, h/o kidney transplant LABS: CBC every 3 weeks MEDICATIONS: Aranesp 300 mcg every 3 weeks if HGB <12 ASSESSMENT/PLAN: Lab sent to provider for review. Will continue every 3 week CBC and Aranesp. Will go to lab at [facility] 1 hr prior to infusion appts here for CBC. He prefers afternoon appts. Results for BRETT DAILEY ( ) as of 04/15/2021 13:36 Ref. Range 03/25/2021 00:00 04/15/2021 00:00 WBC Unknown 7.54 9.16 Hemoglobin Unknown 8.8 8.3 Hematocrit Unknown 28.8 27.1 MCV Unknown 97.0 97.5 Platelets Unknown 182 183 Neutr Abs (ANC) Unknown 4.81 5.91 documented in this encounter Plan of Treatment Upcoming Encounters Date Type Specialty Care Team Description 05/26/2022 Office Visit Otolaryngology Ricardo Panda PA [facility] [address] [place], [place] [address] (Wo rk) 06/02/2022 Infusion Hematology and Oncology 06/16/2022 Infusion Hematology and Oncology 06/21/2022 Office Visit Neurology Tyler Rojas MD [facility] Neurology [place], [place] [phone] (Wo rk) 06/30/2022 Infusion Hematology and Oncology 07/14/2022 Infusion Hematology and Oncology 07/28/2022 Infusion Hematology and Oncology 08/11/2022 Infusion Hematology and Oncology 11/04/2022 Office Visit Rheumatology Dante Freedman PA [facility] RHEUMATOLOGY [place], [place] [address] (Wo rk) documented as of this encounter Procedures Procedure Name Priority Date/Time Associated Diagnosis Comme nts CBC (WITH DIFF) Routine 04/15/2021 Results for this procedure are in the resu lts section. documented in this encounter Results CBC (with Diff) (04/15/2021) athologist Signature WBC 9.16 Hemoglobin 8.3 Hematocrit 27.1 MCV 97.5 Platelets 183 Neutr Abs (ANC) 5.91 Specimen (Source) Anatomical Location Collection Method / Collectio n Time Received Time / Laterality Volume Blood Historical Provider MD HEMATOLOGY ORDERABLES documented in this encounter Visit Diagnoses Not on filedocumented in this encounter Care Teams Battery Tester Field Relationship Specialty Start Date End Date Violetta Sanford MD PCP - General 04/02/14 [address] [place] [address] documented as of this encounter
--- OUTSIDE RECORDS SUMMARY | 2022-05-24 10:49 | XMS_ITS | Encounter Summary ---
:1955 Author Organization [facility] [place] [address] Care Team Providers Name Role Phone Violetta Sanford MD Primary Care Provider Reason for Visit Reason Onset Date Comments Medication Refill 08/04/2021 Encounter Details Date Type Department Care Team Description 08/04/2021 Refill Endocrinology at [facility] [place] [phone] Social History Tobacco Use Types Packs/Day [...] Ricardo Panda PA [facility] [address] [place] [address] (Wo rk) 06/02/2022 Infusion Hematology and Oncology 06/16/2022 Infusion Hematology and Oncology 06/21/2022 Office Visit Neurology Tyler Rojas MD [facility] Dr [place] [place], [place] [phone] (Wo rk) 06/30/2022 Infusion Hematology and Oncology 07/14/2022 Infusion Hematology and Oncology 07/28/2022 Infusion Hematology and Oncology 08/11/2022 Infusion Hematology and Oncology 11/04/2022 Office Visit Rheumatology Dante Freedman PA [facility] RHEUMATOLOGY [place], [place] [address] (Wo rk) documented as of this encounter Visit Diagnoses Not on filedocumented in this encounter Care Teams Bitumastic Applier Relationship Specialty Start Date End Date Violetta Sanford MD PCP - General 04/02/14 [address] [place] [address] documented as of this encounter
--- OUTSIDE RECORDS SUMMARY | 2022-05-24 10:49 | XMS_ITS | Encounter Summary ---
:1955 Author Organization [place] [address] Care Team Providers Name Role Phone Violetta Sanford MD Primary Care Provider Reason for Visit Reason Onset Date Comments Labs Only 05/06/2021 Lab Tracking Encounter Details Date Type Department Care Team Description 05/06/2021 Telephone Hematology/Oncology at [facility], Labs Only (Lab Tracking) [facility] Angelica Gilbert RN [address] [place] [phone] Social History Tobacco Use Types Packs/Day [...] Telephone Encounter - Angelica Malhotra RN - 05/06/2021 2:42 PM EDT LAB TRACKING Brett Dailey [id number] 1955 DIAGNOSIS: anemia d/t CKD stage IV, h/o kidney transplant LABS: CBC every 3 weeks MEDICATIONS: Aranesp 300 mcg every 3 weeks if HGB <12 ASSESSMENT/PLAN: Lab sent to provider for review. Will continue every 3 week CBC and Aranesp. Will go to lab at [facility] 1 hr prior to infusion appts here for CBC. He prefers afternoon appts. Results for BRETT DAILEY ( ) as of 05/06/2021 14:44 Ref. Range 03/25/2021 00:00 04/15/2021 00:00 05/06/2021 00:00 WBC Unknown 7.54 9.16 7.31 Hemoglobin Unknown 8.8 8.3 8.2 Hematocrit Unknown 28.8 27.1 26.4 MCV Unknown 97.0 97.5 97.1 Platelets Unknown 182 183 199 Neutr Abs (ANC) Unknown 4.81 5.91 4.69 documented in this encounter Plan of Treatment Upcoming Encounters Date Type Specialty Care Team Description 05/26/2022 Office Visit Otolaryngology Ricardo Panda PA [facility] [place], [place] [address] (Wo rk) 06/02/2022 Infusion Hematology and Oncology 06/16/2022 Infusion Hematology and Oncology 06/21/2022 Office Visit Neurology Tyler Rojas MD [facility] Neurology [place], [place] [phone] (Wo rk) 06/30/2022 Infusion Hematology and Oncology 07/14/2022 Infusion Hematology and Oncology 07/28/2022 Infusion Hematology and Oncology 08/11/2022 Infusion Hematology and Oncology 11/04/2022 Office Visit Rheumatology Dante Freedman PA [facility] RHEUMATOLOGY [place], [place] [address] (Wo rk) documented as of this encounter Procedures Procedure Name Priority Date/Time Associated Diagnosis Comme nts CBC (WITH DIFF) Routine 05/06/2021 Results for this procedure are in the resu lts section. documented in this encounter Results CBC (with Diff) (05/06/2021) P athologist Signature WBC 7.31 Hemoglobin 8.2 Hematocrit 26.4 MCV 97.1 Platelets 199 Neutr Abs (ANC) 4.69 Specimen (Source) Anatomical Location Collection Method / Collectio n Time Received Time / Laterality Volume Blood Historical Provider MD HEMATOLOGY ORDERABLES documented in this encounter Visit Diagnoses Not on filedocumented in this encounter Care Teams Clinical Psychiatrist Relationship Specialty Start Date End Date Violetta Sanford MD PCP - General 04/02/14 [address] [place] [address] documented as of this encounter
--- OUTSIDE RECORDS SUMMARY | 2022-05-24 10:49 | XMS_ITS | Encounter Summary ---
:1955 Author Organization [facility] [place] [address] Care Team Providers Name Role Phone Violetta Sanford MD Primary Care Provider Encounter Details Date Type Department Care Team Description 05/14/2021 Telephone Endocrinology at [facility] Niyah Pappas, [place] [phone] Social History Tobacco Use Types Packs/Day [...] Notes Telephone Encounter - Leny Morales - 05/14/2021 2:19 PM EDT Called [facility] and they were sending to the old fax number. Updated and they are resending Telephone Encounter - Niyah Leos RN - 05/14/2021 2:08 PM EDT Pt called and said that he is still waiting to get his pump supplies. His DME is saying they are waiting to get paperwork from us. documented in this encounter Plan of Treatment Upcoming Encounters Date Type Specialty Care Team Description 05/26/2022 Office Visit Otolaryngology Ricardo Panda PA [facility] [address] [place], [place] [address] (Wo rk) 06/02/2022 Infusion Hematology and Oncology 06/16/2022 Infusion Hematology and Oncology 06/21/2022 Office Visit Neurology Tyler Rojas MD [facility] Neurology [place], [place] [phone] (Wo rk) 06/30/2022 Infusion Hematology and Oncology 07/14/2022 Infusion Hematology and Oncology 07/28/2022 Infusion Hematology and Oncology 08/11/2022 Infusion Hematology and Oncology 11/04/2022 Office Visit Rheumatology Dante Freedman PA [facility] RHEUMATOLOGY [place], [place] [address] (Wo rk) documented as of this encounter Visit Diagnoses Not on filedocumented in this encounter Care Teams Wire Fence Builder Relationship Specialty Start Date End Date Violetta Sanford MD PCP - General 04/02/14 [address] [place] [address] documented as of this encounter
--- OUTSIDE RECORDS SUMMARY | 2022-05-24 10:49 | XMS_ITS | Encounter Summary ---
:1955 Author Organization [facility] [place] [address] Care Team Providers Name Role Phone Violetta Sanford MD Primary Care Provider Reason for Visit Reason Onset Date Comments Labs Only 03/25/2021 Lab Tracking Encounter Details Date Type Department Care Team Description 03/25/2021 Telephone Hematology/Oncology at [facility], Labs Only (Lab Tracking) [facility] Angelica Gilbert RN [address] [place] [phone] Social History Tobacco Use Types Packs/Day [...] Telephone Encounter - Angelica Malhotra RN - 03/25/2021 1:38 PM EDT LAB TRACKING Brett Dailey [id number] 1955 DIAGNOSIS: anemia d/t CKD stage IV, h/o kidney transplant LABS: CBC every 3 weeks MEDICATIONS: Aranesp 300 mcg every 3 weeks if HGB <12 ASSESSMENT/PLAN: Lab sent to Carrie Trotter APRN for review. Will continue every 3 week CBC and Aranesp. Will go to lab at [facility] 1 hr prior to infusion appts here for CBC. He prefers afternoon appts. Results for BRETT DAILEY ( ) as of 03/25/2021 13:42 Ref. Range 03/04/2021 00:00 03/06/2021 12:20 03/25/2021 00:00 WBC Unknown 7.64 7.0 7.54 RBC Latest Ref Range: 4.58 - 5.54 x10(6)/mcL 3.04 (L) Hemoglobin Unknown 9.0 9.1 (L) 8.8 Hematocrit Unknown 28.7 28.8 (L) 28.8 MCV Unknown 97.0 94.7 (H) 97.0 MCH Latest Ref Range: 27.5 - 32.1 pg 29.9 MCHC Latest Ref Range: 32.0 - 35.7 gm/dL 31.6 (L) RDWSD Latest Ref Range: 36.0 - 45.0 fL 47.5 (H) RDWCV Latest Ref Range: 11.4 - 13.8 % 13.8 Platelets Unknown 219 194 182 MPV Latest Ref Range: 7.6 - 12.9 [...] - 0.000 x10(3)/mcL 0.000 Neutr Abs (ANC) Unknown 4.48 4.43 4.81 Neutrophils % Latest Units: % 63.0 Immature [...] Ref Range: 0.0 - 0.1 x10(3)/mcL 0.0 documented in this encounter Plan of Treatment Upcoming Encounters Date Type Specialty Care Team Description 05/26/2022 Office Visit Otolaryngology Ricardo Panda PA [facility] [place], [place] [address] (Wo rk) 06/02/2022 Infusion Hematology and Oncology 06/16/2022 Infusion Hematology and Oncology 06/21/2022 Office Visit Neurology Tyler Rojas MD [facility] Neurology [place], [place] [phone] (Wo rk) 06/30/2022 Infusion Hematology and Oncology 07/14/2022 Infusion Hematology and Oncology 07/28/2022 Infusion Hematology and Oncology 08/11/2022 Infusion Hematology and Oncology 11/04/2022 Office Visit Rheumatology Dante Freedman PA [facility] RHEUMATOLOGY [place], [place] [address] (Wo rk) documented as of this encounter Procedures Procedure Name Priority Date/Time Associated Diagnosis Comme nts CBC (WITH DIFF) Routine 03/25/2021 Results for this procedure are in the resu lts section. documented in this encounter Results CBC (with Diff) (03/25/2021) P athologist Signature WBC 7.54 Hemoglobin 8.8 Hematocrit 28.8 MCV 97.0 Platelets 182 Neutr Abs (ANC) 4.81 Specimen (Source) Anatomical Location Collection Method / Collectio n Time Received Time / Laterality Volume Blood Historical Provider HEMATOLOGY ORDERABLES documented in this encounter Visit Diagnoses Not on filedocumented in this encounter Care Teams Cork Pressing Machine Operator Relationship Specialty Start Date End Date Violetta Sanford MD PCP - General 04/02/14 [address] [facility] [place] [address] documented as of this encounter
--- OUTSIDE RECORDS SUMMARY | 2022-05-24 10:49 | XMS_ITS | Encounter Summary ---
:1955 Author Organization [facility] [place] [address] Care Team Providers Name Role Phone Violetta Sanford MD Primary Care Provider Reason for Visit Reason Comments Injections Aranesp Treatment/Therapy Plan Authorization (Routine) - Authorized Specialty Diagnoses / Procedures Referred By Contact Refer red To Contact Hematology and Diagnoses CKD (chronic kidney disease) stage 4, GFR 15-29 ml/min Nicky Baez Rust Hem Onc Office Oncology Procedures ALFREDA Ramirez MD [address] [place] [address] HEMATOLOGY/ONCOLOGY [phone] [place] [address] Referral ID Status Reason Start Date Expiration Date Visits V isits Requested Authorized [id number] Authorized 10/08/2020 06/23/2022 99 99 Encounter Details Date Type Department Care Team Description 06/09/2021 Infusion Hematology Oncology at [facility] D (chronic kidney disease) [facility] stage 4, GFR 15-29 ml/min [address] [place] [phone] Social History Tobacco Use Types [...] Reading Time Taken Comments Blood Pressure 139/51 06/09/2021 2:24 PM EST Pulse 60 06/09/2021 2:24 PM EST Temperature 36.8 ??C (98.2 ??F) 06/09/2021 2:24 PM EST Respiratory Rate 18 06/09/2021 2:24 PM EST Oxygen Saturation 99% 06/09/2021 2:24 PM EST Inhaled Oxygen Concentration - - Weight - - Height - - Body Mass Index - - documented in this encounter Progress Notes Jumana Saab RN - 06/09/2021 2:30 PM EST INFUSION THERAPY ADMINISTRATION NOTES DIAGNOSIS: Anemia due to CKD Stage IV, history of kidney transplant REASON FOR VISIT: Aranesp Injection SUBJECTIVE Mr. Torres is here for his Aranesp injection. He offers no complaints. OBJECTIVE LAB DATA: 05/27 Hgb 8.5 Hct 28.2 Pre administration: Orders independently verified for drug [...] Panda PA [facility] [address] [place] [address] (Wo gregg) 06/02/2022 Infusion Hematology and Oncology 06/16/2022 Infusion Hematology and Oncology 06/21/2022 Office Visit Neurology Tyler Rojas MD [facility] [address] [place] [address] (Wo rk) 06/30/2022 Infusion Hematology and Oncology 07/14/2022 Infusion Hematology and Oncology 07/28/2022 Infusion Hematology and Oncology 08/11/2022 Infusion Hematology and Oncology 11/04/2022 Office Visit Rheumatology Dante Freedman PA [facility] RHEUMATOLOGY [place], [place] [address] (Wo rk) documented as of this encounter Visit Diagnoses Diagnosis CKD (chronic kidney disease) stage 4, GF R 15-29 ml/min Chronic kidney disease, Stage IV (severe ) documented in this encounter Administered Medications Inactive Administered Medications - up to 3 most recent administrations Medication Order MAR Action Action Date Dose Rate Site darbepoetin cristy-polysorbate Given 06/09/2021 2:40 PM EST 300 mc g Right Arm (Aranesp) (300 mcg/0.6 mL) injection 300 mcg 300 mcg, Subcutaneous, ONCE, 1 dose, On Tue06/09/21 at 1445, Hold parameters for MDS and chemotherapy-induced anemia: Hemoglobin greater than or equal to 10 gm/dL Hematocrit greater than or equal to 30% Hold parameters for CKD: Hemoglobin greater than or equal to 12 gm/dL Hematocrit greater than or equal to 36%, Routine, What is the indication of use? Chronic Kidney Disease (CKD) documented in this encounter Care Teams Kiln Loader Relationship Specialty Start Date End Date Violetta Sanford MD PCP - General 04/02/14 [address] [place] [address] documented as of this encounter
--- OUTSIDE RECORDS SUMMARY | 2022-05-24 10:50 | XMS_ITS | Encounter Summary ---
:1955 Author Organization [facility] [place] [address] Care Team Providers Name Role Phone Violetta Sanford MD Primary Care Provider Reason for Visit Reason Comments Injections Aranesp Injection Treatment/Therapy Plan Authorization (Routine) - Authorized Specialty Diagnoses / Procedures Referred By Contact Refer red To Contact Hematology and Diagnoses CKD (chronic kidney disease) stage 4, GFR 15-29 ml/min Nicky Baez Hem Onc Office Oncology Procedures ALFREDA Ramirez MD [address] [place] [address] HEMATOLOGY/ONCOLOGY [phone] [place] [address] Referral ID Status Reason Start Date Expiration Date Visits V isits Requested Authorized [id number] Authorized 10/08/2020 06/23/2022 99 99 Encounter Details Date Type Department Care Team Description 01/21/2021 Infusion Hematology Oncology at [facility] of chronic renal [facility] failure, stage 4 (severe) [address] [place] [phone] Social History Tobacco Use Types [...] Sign Reading Time Taken Comments Blood Pressure 123/47 01/21/2021 1:46 PM EDT Pulse 66 01/21/2021 1:46 PM EDT Temperature 36.9 ??C (98.4 ??F) 01/21/2021 1:46 PM EDT Respiratory Rate 18 01/21/2021 1:46 PM EDT Oxygen Saturation 98% 01/21/2021 1:46 PM EDT Inhaled Oxygen Concentration - - Weight - - Height - - Body Mass Index - - documented in this encounter Progress Notes Amena Burnette RN - 01/21/2021 2:00 PM EDT INFUSION THERAPY ADMINISTRATION NOTES DIAGNOSIS: Anemia due to CKD Stage IV, history of kidney transplant REASON FOR VISIT: Aranesp Injection SUBJECTIVE Mr. Torres is here for his Aranesp injection. He offers no complaints. OBJECTIVE LAB DATA: Hgb 9.6, Hct 31.3 Pre administration: Orders independently verified for drug [...] PA [facility] [address] [place] [address] (Wo gregg) 06/02/2022 Infusion Hematology and Oncology 06/16/2022 Infusion Hematology and Oncology 06/21/2022 Office Visit Neurology Tyler Rojas MD [facility] Dr [address] [place] [address] (Wo rk) 06/30/2022 Infusion Hematology and Oncology 07/14/2022 Infusion Hematology and Oncology 07/28/2022 Infusion Hematology and Oncology 08/11/2022 Infusion Hematology and Oncology 11/04/2022 Office Visit Rheumatology Dante Freedman PA [facility] RHEUMATOLOGY [place], [place] [address] (Wo rk) documented as of this encounter Visit Diagnoses Diagnosis Anemia of chronic renal failure, stage 4 (severe) documented in this encounter Administered Medications Inactive Administered Medications - up to 3 most recent administrations Medication Order MAR Action Action Date Dose Rate Site darbepoetin cristy-polysorbate Given 01/21/2021 2:18 PM EDT 300 mc g Right Arm (Aranesp) (300 mcg/0.6 mL) injection 300 mcg 300 mcg, Subcutaneous, ONCE, 1 dose, On Tue01/21/21 at 1400, Hold parameters for MDS and chemotherapy-induced anemia: Hemoglobin greater than or equal to 10 gm/dL Hematocrit greater than or equal to 30% Hold parameters for CKD: Hemoglobin greater than or equal to 12 gm/dL Hematocrit greater than or equal to 36%, Routine, What is the indication of use? Chronic Kidney Disease (CKD) documented in this encounter Care Teams Control Operator Flow Coat Relationship Specialty Start Date End Date Violetta Sanford MD PCP - General 04/02/14 [address] [place] [address] documented as of this encounter
--- OUTSIDE RECORDS SUMMARY | 2022-05-24 10:50 | XMS_ITS | Encounter Summary ---
:1955 Author Organization [facility] [place] [address] Care Team Providers Name Role Phone Violetta Sanfrod MD Primary Care Provider Reason for Visit Reason Comments Injections [place] Aranesp Treatment/Therapy Plan Authorization (Routine) - Authorized Specialty Diagnoses / Procedures Referred By Contact Refer red To Contact Hematology and Diagnoses CKD (chronic kidney disease) stage 4, GFR 15-29 ml/min Nicky Baez Hem Onc Office Oncology Procedures ALFREDA Ramirez MD [address] [place] [address] HEMATOLOGY/ONCOLOGY [phone] [place] [address] Referral ID Status Reason Start Date Expiration Date Visits V isits Requested Authorized [id number] Authorized 10/08/2020 06/23/2022 99 99 Encounter Details Date Type Department Care Team Description 11/19/2020 Infusion Hematology Oncology at [facility] of chronic renal [facility] failure, stage 4 (severe) [address] [place] [phone] Social History Tobacco Use Types [...] Sign Reading Time Taken Comments Blood Pressure 145/50 11/19/2020 1:28 PM EDT Pulse 73 11/19/2020 1:28 PM EDT Temperature 36.9 ??C (98.4 ??F) 11/19/2020 1:28 PM EDT Respiratory Rate 18 11/19/2020 1:28 PM EDT Oxygen Saturation 99% 11/19/2020 1:28 PM EDT Inhaled Oxygen - - Concentration Weight 125.8 kg (277 lb 6.4 11/19/2020 1:44 PM w/c scal e, minus 18 oz) EDT lbs/legs, minus 64.2 w/c Height - - Body Mass Index 33.33 10/28/2020 2:09 PM EDT documented in this encounter Progress Notes Millie Kc RN - 11/19/2020 1:00 PM EDT Infusion Note Diagnosis: CKD anemia Treatment: Aranesp Injection Labs: 11/19/20 - H/H - 9.9/31.5 Aranesp 300 mcg injected in right arm. Patient aware to call clinic with any questions or concerns. Plan: Return to clinic as scheduled. documented in this encounter Plan of Treatment Upcoming Encounters Date Type Specialty Care Team Description 05/26/2022 Office Visit Otolaryngology Ricardo Panda PA [facility] [address] [place] [address] (Wo gregg) 06/02/2022 Infusion Hematology and Oncology 06/16/2022 Infusion Hematology and Oncology 06/21/2022 Office Visit Neurology Tyler Rojsa MD [facility] Dr [address]i [place] [phone] (Wo gregg) 06/30/2022 Infusion Hematology and Oncology 07/14/2022 Infusion Hematology and Oncology 07/28/2022 Infusion Hematology and Oncology 08/11/2022 Infusion Hematology and Oncology 11/04/2022 Office Visit Rheumatology Dante Freedman PA [facility] RHEUMATOLOGY [place] [address] (Wo rk) documented as of this encounter Visit Diagnoses Diagnosis Anemia of chronic renal failure, stage 4 (severe) documented in this encounter Administered Medications Inactive Administered Medications - up to 3 most recent administrations Medication Order MAR Action Action Date Dose Rate Site darbepoetin cristy-polysorbate Given 11/19/2020 1:46 PM EDT 300 mc g Right Arm (Aranesp) (300 mcg/0.6 mL) injection 300 mcg 300 mcg, Subcutaneous, ONCE, 1 dose, On Tue11/19/20 at 1345, Hold parameters for MDS and chemotherapy-induced anemia: Hemoglobin greater than or equal to 10 gm/dL Hematocrit greater than or equal to 30% Hold parameters for CKD: Hemoglobin greater than or equal to 12 gm/dL Hematocrit greater than or equal to 36%, Routine, What is the indication of use? Chronic Kidney Disease (CKD) documented in this encounter Care Teams Able Seaman Relationship Specialty Start Date End Date Violetta Sanford MD PCP - General 04/02/14 [address] [place] [address] documented as of this encounter
--- OUTSIDE RECORDS SUMMARY | 2022-05-24 10:50 | XMS_ITS | Encounter Summary ---
:1955 Author Organization [facility] [place] [address] Care Team Providers Name Role Phone Violetta Sanford MD Primary Care Provider Reason for Visit Reason Comments Injections aranesp Treatment/Therapy Plan Authorization (Routine) - Authorized Specialty Diagnoses / Procedures Referred By Contact Refer red To Contact Hematology and Diagnoses CKD (chronic kidney disease) stage 4, GFR 15-29 ml/min Nicky Baez Hem Onc Office Oncology Procedures ALFREDA Ramirez MD [address] [place] [address] HEMATOLOGY/ONCOLOGY [phone] [place] [address] Referral ID Status Reason Start Date Expiration Date Visits V isits Requested Authorized [id number] Authorized 10/08/2020 06/23/2022 99 99 Encounter Details Date Type Department Care Team Description 10/10/2020 Infusion Hematology Oncology at [facility] of chronic renal [facility] failure, stage 4 (severe) [address] [place] [phone] Social History Tobacco Use Types [...] Sign Reading Time Taken Comments Blood Pressure 132/61 10/10/2020 3:08 PM EDT Pulse 66 10/10/2020 3:08 PM EDT Temperature 36.7 ??C (98 ??F) 10/10/2020 3:08 PM EDT Respiratory Rate 20 10/10/2020 3:08 PM EDT Oxygen Saturation 100% 10/10/2020 3:08 PM EDT Inhaled Oxygen Concentration - - Weight - - Height - - Body Mass Index - - documented in this encounter Progress Notes Angelica Malhotra RN - 10/10/2020 3:00 PM EDT Infusion Note Diagnosis: Anemia d/t CKD Treatment: Aranesp Injection Labs: Done 10/08/20 at [facility]- Hgb 8.8/Hct 27.7 Aranesp 300 mcg injected SQ in right arm. Patient aware to call clinic with any questions or concerns. Plan: Return to clinic as scheduled. documented in this encounter Plan of Treatment Upcoming Encounters Date Type Specialty Care Team Description 05/26/2022 Office Visit Otolaryngology Ricardo Panda PA [facility] [address] [place] [address] (Oscar escobedo) 06/02/2022 Infusion Hematology and Oncology 06/16/2022 Infusion Hematology and Oncology 06/21/2022 Office Visit Neurology Tyler Rojas MD [facility] [address] [place], [place] [phone] (Oscar escobedo) 06/30/2022 Infusion Hematology and Oncology 07/14/2022 Infusion Hematology and Oncology 07/28/2022 Infusion Hematology and Oncology 08/11/2022 Infusion Hematology and Oncology 11/04/2022 Office Visit Rheumatology Dante Freedman PA [facility] [place]OLOGY [place] [address] (Wo rk) documented as of this encounter Visit Diagnoses Diagnosis Anemia of chronic renal failure, stage 4 (severe) documented in this encounter Administered Medications Inactive Administered Medications - up to 3 most recent administrations Medication Order MAR Action Action Date Dose Rate Site darbepoetin cristy-polysorbate Given 10/10/2020 3:12 PM EDT 300 mc g Right Arm (Aranesp) (300 mcg/0.6 mL) injection 300 mcg 300 mcg, Subcutaneous, ONCE, 1 dose, On Tue10/10/20 at 1530, Hold parameters for MDS and chemotherapy-induced anemia: Hemoglobin greater than or equal to 10 gm/dL Hematocrit greater than or equal to 30% Hold parameters for CKD: Hemoglobin greater than or equal to 12 gm/dL Hematocrit greater than or equal to 36%, Routine, What is the indication of use? Chronic Kidney Disease (CKD) documented in this encounter Care Teams Foundry Worker General Relationship Specialty Start Date End Date Violetta Sanford MD PCP - General 04/02/14 [address] [place] [address] documented as of this encounter
--- OUTSIDE RECORDS SUMMARY | 2022-05-24 10:50 | XMS_ITS | Encounter Summary ---
:1955 Author Organization [facility] [place] [address] Care Team Providers Name Role Phone Violetta Sanford MD Primary Care Provider Reason for Visit Reason Onset Date Comments Medication Refill 09/02/2020 Encounter Details Date Type Department Care Team Description 09/02/2020 Refill Solid Organ Transplant at Alejo Kearney MD [facility] Giovana tyler [place] [address] [place] [address] [phone] (Wo rk) Social History Tobacco Use Types [...] 05/26/2022 Office Visit Otolaryngology Ricardo Panda PA [facility] [address] [place], [place] [address] (Wo rk) 06/02/2022 Infusion Hematology and Oncology 06/16/2022 Infusion Hematology and Oncology 06/21/2022 Office Visit Neurology Tyler Rojas MD [facility] er Neurology [place], [place] [phone] (Wo rk) 06/30/2022 Infusion Hematology and Oncology 07/14/2022 Infusion Hematology and Oncology 07/28/2022 Infusion Hematology and Oncology 08/11/2022 Infusion Hematology and Oncology 11/04/2022 Office Visit Rheumatology Dante Freedman PA [facility] ER RHEUMATOLOGY [place], [place] [address] (Wo rk) documented as of this encounter Visit Diagnoses Not on filedocumented in this encounter Care Teams Carroting Machine Offbearer Relationship Specialty Start Date End Date Violetta Sanford MD PCP - General 04/02/14 [facility] ALONDRA DAVID [address] [place] [address] documented as of this encounter
--- OUTSIDE RECORDS SUMMARY | 2022-05-24 10:50 | XMS_ITS | Encounter Summary ---
:1955 Author Organization [facility] [place] [address] Care Team Providers Name Role Phone Violetta Sanford MD Primary Care Provider Encounter Details Date Type Department Care Team Description 10/28/2020 Office Visit Endocrinology at [facility] Monica Contreras Type [address] [facility] DA Agosto mellitus with [facility], [place] [address] [place] [address] long-term current use [phone] ENDOCRINOLOGY of insulin [place], [place] [address] Social History Tobacco Use Types [...] Sign Reading Time Taken Comments Blood Pressure 138/55 10/28/2020 1:17 PM EDT Pulse 68 10/28/2020 1:17 PM EDT Temperature 36.8 ??C (98.2 ??F) 10/28/2020 1:17 PM EDT Respiratory Rate - - Oxygen Saturation 100% 10/28/2020 1:17 PM EDT Inhaled Oxygen - - Concentration Weight 131.5 kg (290 lb) 10/28/2020 1:17 subtracted 18 for PM EDT prosthetics Height 194.3 cm (6' 4.5) 10/28/2020 1:17 PM EDT Body Mass Index 34.84 10/28/2020 1:17 PM EDT documented in this encounter Patient Instructions Patient InstructionsMonica Contreras PA - 10/28/2020 1:00 PM EDT 1. Decrease evening Levemir dose to 58 units. Keep morning dose the same (60 units). 2. No other changes, will monitor low blood sugars. 3. Will check into switching to Gilberto 2 to allow for alarms. 4. Will send in for glucagon kit in case of emergencies. 5. Follow up in [address] Hernandez, then I'll see you the visit after that. documented in this encounter Progress Notes Monica Contreras PA - 10/28/2020 1:00 PM EDT Images from the original note were not included. Diabetes Visit Note Name: Leroy Torres : 1955 PCP: Violetta Sanford MD Date of visit: 10/28/2020 Reason for visit: Leroy Torres is a 65 y.o. male with Diabetes TYPE 2 here for follow up to the [facility] endocrine clinic for diabetes services. Past medical history significant for renal transplant with some diminution in function, severe retinopathy that has been treated, bilateral bka R and morbid obesity. Patient was last seen in this clinic 4 months ago. Plan from previous visit with Dr. Donell Hernandez on 06/24/2020: 1) DM2 -he now has superb control. [...] history of renal transplant- is immunocompromised Interim history: Pt says that since last visit he has worked with ems educator Khloe Bell(at [facility]). She advised decreasing his Levemir dose to 55 units BID d/t hypoglycemia on Gilberto report. Once he did this he found that his numbers were high, particularly his fasting AM numbers increased by about 40 points. He resumed 60 units BID and they improved. Pt says that he has resumed getting infusions every 3 weeks for transplant related anemia. Thinks ankur get another 5 years out of his kidney per his transplant doctor. States that his original renal failure was d/t DM. His amputations are also d/t DM. Pt notes that Levemir is on his allergy list, but he is unsure why, as both his transplant surgeon and Dr. Hernandez are aware of pt taking it. Diabetes Diagnosis Date: 1986 Last 3 Hemoglobin A1Cs Lab Results Component Value Date HA1C 6.5 (H) 09/01/2020 HA1C 6.4 (H) 06/24/2020 HA1C 7.9 (H) 08/29/2019 Current outpatient diabetes regimen: Injectable medications (non-insulin): Victoza 1.8mg Basal insulin: Levemir 60 units BID Bolus (meal and correction) insulin: Novolog ~35units per meal, CF 1:4, uses a sliding scale Compliance: good Lifestyle: 24-hour diet history: 3 meals/day 0-1 snacks/day * Breakfast: Donut, coffee * Lunch: Whopper, onion rings, diet coke * Dinner: Stir bangura with rice, veggies, chicken * Snacks: Infrequent, had ice cream the other day * Desserts: Rare * Drinks: Coffee, diet coke caffeine-free, rarely drinks plain water 2019QI Exercise: Can't walk far d/t amputations, fills up the pellet stove, active at home. Sleep: Sleeps 8 hours with one awakening to urinate. Glucose Monitoring: Meter type: One touch Number of Prescribed checks per day: 4x daily Number of checks completed: 4x daily Duration of testing 4x day or more: at least since last visit 4 months ago. Reason for needing more than 3 checks daily: wide fluctuation in numbers. Meter uploaded today: yes Average Blood sugar: 140 Duration of need: lifetime Continuous glucose monitor: yes Model: Gilberto Hypoglycemia: Awareness: Yes Warning signs: butterflies in the stomach Severe hypoglycemia in the past: yes. Most recent event: many years ago (38) Prescriber information: Monica Contreras PA-C Diabetes education: Met with ems educator/chip washer? yes History of Diabetes Related Complications and Prevention Eyes: Last Eye Exam:July 2020 History of Diabetes Retinopathy: yes Dental Care in last 6 months: no, has dentures top and bottom Kidney function: s/p renal transplant Last urine microalbumin: 2011 Last creatinine: 09/01/20--2.54 mg/dL On IFTIKHAR/ARB: yes, lostartan 25mg Duct Layer Supervisor: yes Cardio: Aspirin: yes Last cholesterol: 09/01/20--total cholesterol only, 92 mg/dL Cholesterol medication: atorvastatin 20mg Feet: Current status of Neuropathy: s/p bilateral BKA Flu Vaccination: yes Pneumonia vaccine: yes COVID vaccine: got 1st Moderna vaccine, next injection 11/17/20. Smoker/tobacco use: Non-smoker Allergies: Allergies Allergen Reactions ??? Penicillins Anaphylaxis ??? Iftikhar Inhibitors Cough ??? Clindamycin Hcl Rash ??? Allergenic Extracts Birch and Nut Trees, cats, dust, pollen bird feathers ??? Ibuprofen ??? Levemir [Insulin Detemir] Contraindicated - kidney transplant ??? Sulfamethoxazole-Trimethoprim PMH See HPI Social history: , lives with . Has 3 grown sons. 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 Lives in [place], [place], and has lived there his whole life. Family history: No family history on file. ROS: Constitutional: Denies fever, fatigue Endocrine: Denies increased thirst or urination HEENT: Denies recent vision changes, +dentures Cardiovascular: Denies recent chest pain, heart palpitations Respiratory: Denies shortness of breath at rest GI: Denies diarrhea, constipation : Denies frequent/recent urinary tract infections Neurological: Denies headaches, dizziness Skin/Feet: s/p bilateral amputation Physical Exam: BP 138/55 Pulse 68 Temp 36.8 ??C (98.2 ??F) (Temporal) Ht 194.3 cm (6' 4.5) Wt 131.5 kg (290 lb) Comment: subtracted 18 for prosthetics SpO2 100% BMI 34.84 kg/m?? General appearance: Alert and cooperative. No acute distress. Heart: RRR Abdomen: soft, non-tender Skin: No hypertrophy, redness or irritation at injection sites. Skin normal texture and temperature. Lower extremities: s/p amputation and wearing prosthetics. Labs: Recent Results (from the past 24 hour(s)) Hemoglobin A1c Result Value Ref Range Hemoglobin A1C 6.0 (H) 4.3 - 5.6 % Est Avg Gluc 125 mg/dL Medications: Medications 10/28/20 1410 Medication Sig Taking? hydrALAZINE (Apresoline) 100 mg Tablet Take 1 tablet by mouth 3 times daily. Yes darbepoetin cristy in polysorbat 10 mcg/0.4 mL Syringe Inject 300 mg as directed as needed. Yes insulin aspart U-100 (NovoLOG Flexpen U-100 Insulin) Insulin Pen Inject 50-54 Units subcutaneously 3times daily (with meals). Yes cyanocobalamin, Vitamin B-12, (Vitamin B-12) 100 mcg Tablet Take 100 mcg by mouth daily. Yes POLYETHYLENE GLYCOL 1000,BULK, MISC by Misc.(Non-Drug; Combo Route) route as needed. Yes Prograf 1 mg Capsule Take 1 capsule by mouth daily. Kidney transplant 02/29/2008 dx code Z94.0 D/C date 03/11/2008 Yes CellCept 250 mg Capsule Take 2 capsules by mouth 2 times daily. Kidney transplant 02/29/2008 dx code Z94.0 D/C date 03/11/2008 Yes gabapentin (Neurontin) 100 mg Capsule Take 2 capsules by mouth 3 times daily for 89 days. Pt can increase dose by 100 mg each dose until neuropathic pain is managed. Max dose 1800 mg daily Yes losartan (Cozaar) 25 mg Tablet Take 1 tablet by mouth daily. Yes FreeStyle Gilberto 14 Day Sensor Kit 6 TIMES DAILY Yes guaiFENesin 200 mg Tablet Take 400 mg by mouth every 4 hours as needed for Congestion. Yes calciTRIoL (Rocaltrol) 0.5 mcg Capsule Take 1 capsule by mouth daily. Yes metoprolol succinate XL (Toprol-XL) 50 mg Tablet Sustained Release 24 hr Take 1 tablet by mouth daily. Yes amLODIPine (Norvasc) 10 mg Tablet Take 0.5 tablets by mouth daily. Yes fluticasone propionate (FLONASE) 50 mcg/actuation [place], Suspension INSTILL 2 SPRAYS INTO EACH NOSTRIL ONCE A DAY NEEDED Yes albuterol (PROVENTIL) 2.5 mg /3 mL (0.083 %) Solution for Nebulization Take 3 mLs by nebulization every 4 hours as needed for Wheezing. Yes multivitamin with minerals Tablet Take 1 tablet by mouth Daily. Yes primidone (MYSOLINE) 50 mg Tablet Take 1 tablet by mouth 4 times daily. Start 1/2 tablet at night and increase as directed Yes LEVEMIR FLEXTOUCH U-100 INSULN Insulin Pen Inject 50-80 Units subcutaneously 2 times daily. ICD 10 Code: E11.40 Yes cholecalciferol, Vitamin D3, 2,000 unit Tablet Take 1 tablet by mouth daily. Yes liraglutide (VICTOZA 3-FAZAL) 0.6 mg/0.1 mL (18 mg/3 mL) Pen Injector Inject 1.2 mg subcutaneously daily. Yes insulin needles, disposable, 29 gauge x 1/2 Needle 1 Device by [facility].(Non-Drug; Combo Route) route 3times daily. Yes atorvastatin [...] needed for Pain. Reported on 08/06/2016 Yes Count Includes [facility] 4 Devices by [facility].(Non-Drug; Combo Route) route daily. Rubber sheath for leg prosthesis (2 pairs) Yes VENTOLIN HFA 90 mcg/actuation HFA Aerosol Inhaler Inhale 2 puffs into the lungs as needed. Yes Insulin Lispro (HUMALOG) 100 unit/mL Insulin Pen Inject 50-54 Units subcutaneously 4 times daily. Yes BD INSULIN PEN NEEDLE UF ORIG 29 gauge x 1/2 Needle Yes aspirin 81 mg EC tablet Take 81 mg by mouth daily. Yes montelukast (SINGULAIR) 10 mg tablet Take 10 mg by mouth daily. Yes Baqsimi 3 mg/actuation [place], Non-Aerosol 3 mg by Nasal route as needed (in the event of severe hypoglycemia). May administer 2nd dose if no response to first dose after 15 minutes glucagon HCL (Glucagon, HCl, Emergency Kit) 1 mg Recon Soln Inject 1 mg as directed as needed (For severe hypoglycemia, may repeat in 15-20 minutes if needed). Prograf 0.5 mg Capsule Take 1 capsule by mouth nightly. Kidney transplant 02/29/2008 dx code Z94.0 D/Cdate 03/11/2008 Patient not taking: Reported on 10/28/2020 Blood-Glucose Sensor (Dexcom G6 Sensor) Device by [facility].(Non-Drug; Combo Route) route. Sensor, inpatient coder andtransmitter calciTRIoL (Rocaltrol) 0.5 mcg Capsule Take 1 capsule by mouth daily. Patient not taking: Reported on 10/28/2020 triamcinolone (NASACORT or NASACORT OTC) 55 mcg Aerosol, [place] 2 sprays by Nasal route daily. Patient not taking: Reported on 10/28/2020 ipratropium-albuterol (DUONEB) 0.5 mg-3 mg(2.5 mg base)/3 mL Solution for Nebulization Take 3 mLs bynebulization 2 times daily. STIOLTO RESPIMAT 2.5-2.5 mcg/actuation Mist Inhale 2 puffs into the lungs daily. Assessment: Leroy Torres is a 65 y.o. male with a past medical history significant for well-controlled T2DM,renal transplant with some diminution in function, severe retinopathy that has been treated, bilateral bka and morbid obesity. Review of A1C done prior to visit today (6.0%) and Gilberto report show continued excellent control with some hypoglycemia. Discussed that pt's darbepoetin infusions can artificially lower his A1C and that the Gilberto report is a more accurate picture of diabetes control. GMI for last 2wks was 6.7%, so more likely actual A1C closer to 7.0% which is still below goal for patient. Also discussed low blood glucose readings--overnight lows may be a combination of true lows and ki gaby lows from lying on the sensor. Talked about discrepancy between Gilberto and glucometer. If pt haslow reading on Gilberto and is not symptomatic, good to confirm with glucometer before treating. Will make slight adjustment to evening Levemir dose to see if this helps decrease the frequency of low blood glucose events. We did talk about his use of Levemir and that both his transplant surgeon and financial systems analyst are aware of his use. Levemir is listed on his allergies and pt unclear why. After discussion with Dr. Hernandez, removed it from allergy list. Pt would benefit from Gilberto 2 that has alarms, discussed checking into an upgrade. Pt also asking for glucagon kit--advised him of both injection kit andnasal glucagon. He prefers the nasal if insurance will cover it as he thinks his would do better with the nasal administration. Plan: 1. Decrease evening Levemir dose to 58 units. Keep morning dose the same (60 units). 2. No other changes, will monitor low blood sugars. 3. Will check into switching to Gilberto 2 to allow for alarms. 4. Will send in for glucagon kit in case of emergencies. 5. Follow up in [address] Hernandez, then I'll see you the visit after that. This was a 45 minute visit spent [id number] with patient discussing diabetes management and providing education including but not limited to information in history and plan. An additional 15 minutes was spent reviewing previous notes and labs, ordering labs and medications & completing documentation. I have reviewed the plan outlined above with the patient and the patient has verbalized understanding. Monica Contreras PA-C Department of Endocrinology [facility] documented in this encounter Plan of Treatment Upcoming Encounters Date Type Specialty Care Team Description 05/26/2022 Office Visit Otolaryngology Ricardo Panda PA [facility] [address] [place], [place] [address] (Wo rk) 06/02/2022 Infusion Hematology and Oncology 06/16/2022 Infusion Hematology and Oncology 06/21/2022 Office Visit Neurology Tyler Rojas MD [facility] Dr [address] [place], [place] [phone] (Wo rk) 06/30/2022 Infusion Hematology and Oncology 07/14/2022 Infusion Hematology and Oncology 07/28/2022 Infusion Hematology and Oncology 08/11/2022 Infusion Hematology and Oncology 11/04/2022 Office Visit Rheumatology Dante Freedman PA [facility] ER RHEUMATOLOGY [place] [address] (Wo rk) documented as of this encounter Results LDL Cholesterol, Direct (03/06/2021 12:20 PM EDT) athologist Signature LDL Chol 45 mg/dL [facility] Comment: Lowest Risk: <100 mg/dL Lower Risk: 100-129 mg/dL Borderline High Risk: 130-159 mg/dL High Risk: 160-189 mg/dL Very High Risk: >bn=880 mg/dL Specimen Anatomical Collection Method Collection Time Receive d Time (Source) Location / / Volume Laterality Blood 03/06/2021 12:20 03/06/2021 PM EDT 12:25 PM EDT Resulting Agency Comment Spec In Lab Donell Hernandez MD CHEMISTRY ORDERABLES Performing Organization Address City/State/[place] [address] (ABNORMAL) Hemoglobin A1c (10/28/2020 11:50 AM EDT) Analysis Performed At Patho logist Time Signature Hemoglobin A1C 6.0 (H) 4.3 - 5.6 [facility] Comment: Reference Range: 4.3 [...] 36: Suppl. 1, S67-74 Est Avg Gluc 125 mg/dL [facility] Comment: eAG equivalents for HbA1c percentages: HbA1c(%) ?eAG(mg/dL) 6.0 ?126 6.5 ?140 7.0 ?154 7.5 ?169 8.0 ?183 8.5 ?197 9.0 ?212 9.5 ?226 10.0 ? 240 Limitations: The eAG calculation has not been validated on women, individuals below 18 years old and above 70 years old, and individuals with hemoglobinopathies. Additional resources are available on [facility] ADA website. Scooby MALDONADO, Nba J, Sydnee R, et al. ??Tr anslating the A1C assay into estimated average glucose values. ??Diabetes Care 2008:31(8):2961-5253. Specimen Anatomical Collection Method Collection Time Receive d Time (Source) Location / / Volume Laterality Blood specimen 10/28/2020 11:50 1 (specimen) AM EDT 12:00 PM EDT Resulting Agency Comment Spec In Lab Donell Hernandez MD CHEMISTRY ORDERABLES Performing Organization Address City/State/[place] [address] documented in this encounter Visit Diagnoses Diagnosis Type 2 diabetes mellitus with hyperglyce maki, with long-term current use of insulin documented in this encounter Care Teams Windows Desktop Support Relationship Specialty Start Date End Date Violetta Sanford MD PCP - General 04/02/14 [address] [place] [address] documented as of this encounter
--- OUTSIDE RECORDS SUMMARY | 2022-05-24 10:50 | XMS_ITS | Encounter Summary ---
:1955 Author Organization [facility] [place] [address] Care Team Providers Name Role Phone Violetta Sanford MD Primary Care Provider Reason for Visit Reason Onset Date Comments Prior Authorization 11/04/2020 Encounter Details Date Type Department Care Team Description 11/04/2020 Telephone Endocrinology at [facility] [place] [address] Social History Tobacco Use Types Packs/Day Years [...] Telephone Encounter - Robert Tran RN - 11/06/2020 4:42 PM EDT Kenny Leos would like to verify drug before making a decision. They request a return call at [phone] Telephone Encounter - Leny Morales - 11/04/2020 8:57 AM EDT Medication Prior Authorization [place] Medication name/dose/directions: Glucagon HCL 1mg Rationale for request: Type II DM Health plan: [facility] ([facility]) Authorizing community representative name: Terri Sent to health plan on: 11/04/20 Health plan decision: Denied Quantity approved: this drug is excluded because drugs used for diagnostic procedures not covered under your medicare part D benefits Authorization number: Start date: End date: Telephone Encounter - Leny Morales - 11/04/2020 8:57 AM EDT Appeal letter routed Telephone Encounter - Leny Morales - 11/04/2020 8:57 AM EDT Returned fax as we received a fax as well Telephone Encounter - Leny Morales - 11/04/2020 8:57 AM EDT I just received preferred alternatives. Why it is coming now and not with the original denial I am not sure. Would you like do switch or go ahead with the denial? They have sent a couple of different questionnaires in regards to the denial so I still do not have an approval yet. Please just let me know! Gvoke Hypopen 1-pack Gvoke Hypopen 2-Pack [place] [facility] documented in this encounter Plan of Treatment Upcoming Encounters Date Type Specialty Care Team Description 05/26/2022 Office Visit Otolaryngology Ricardo Panda PA [facility] [address] [place], [place] [address] (Wo rk) 06/02/2022 Infusion Hematology and Oncology 06/16/2022 Infusion Hematology and Oncology 06/21/2022 Office Visit Neurology Tyler Rojas MD [facility] er Neurology [place], [place] [phone] (Wo rk) 06/30/2022 Infusion Hematology and Oncology 07/14/2022 Infusion Hematology and Oncology 07/28/2022 Infusion Hematology and Oncology 08/11/2022 Infusion Hematology and Oncology 11/04/2022 Office Visit Rheumatology Dante Freedman PA [facility] RHEUMATOLOGY [place], [place] [address] (Wo rk) documented as of this encounter Visit Diagnoses Not on filedocumented in this encounter Care Teams Systems Integrator Relationship Specialty Start Date End Date Violetta Sanford MD PCP - General 04/02/14 [address] [place] [address] documented as of this encounter
--- OUTSIDE RECORDS SUMMARY | 2022-05-24 10:50 | XMS_ITS | Encounter Summary ---
:1955 Author Organization [facility] [place] [address] Care Team Providers Name Role Phone Violetta Sanford MD Primary Care Provider Reason for Visit Reason Comments Injections Arenesp 300mcg Treatment/Therapy Plan Authorization (Routine) - Authorized Specialty Diagnoses / Procedures Referred By Contact Refer red To Contact Hematology and Diagnoses CKD (chronic kidney disease) stage 4, GFR 15-29 ml/min Nicky Baez [facility] Hem Onc Office Oncology Procedures ALFREDA Ramirez MD [address] [place] [address] [place], [place] HEMATOLOGY/ONCOLOGY [id number] [place] [address] Referral ID Status Reason Start Date Expiration Date Visits V isits Requested Authorized [id number] Authorized 10/08/2020 06/23/2022 99 99 Encounter Details Date Type Department Care Team Description 12/10/2020 Infusion Hematology Oncology at [facility] of chronic renal [facility] failure, stage 4 (severe) [address] [place] [phone] Social History Tobacco Use Types [...] Sign Reading Time Taken Comments Blood Pressure 129/59 12/10/2020 12:46 PM EDT Pulse 71 12/10/2020 12:46 PM EDT Temperature 36.9 ??C (98.4 ??F) 12/10/2020 12:46 PM EDT Respiratory Rate 18 12/10/2020 12:46 PM EDT Oxygen Saturation 99% 12/10/2020 12:46 PM EDT Inhaled Oxygen Concentration - - Weight 125.9 kg (277 lb 8 oz) 12/10/2020 12:46 PM EDT Height - - Body Mass Index 33.34 10/28/2020 2:09 PM EDT documented in this encounter Progress Notes Dulce Quinn RN - 12/10/2020 1:00 PM EDT Infusion Note Diagnosis: CKD anemia Treatment: Aranesp Injection Labs: 11/19/20 - H/H - 9.7/30.4 Aranesp 300 mcg injected in right arm. Patient aware to call clinic with any questions or concerns. Plan: Return to clinic as scheduled. documented in this encounter Plan of Treatment Upcoming Encounters Date Type Specialty Care Team Description 05/26/2022 Office Visit Otolaryngology Ricardo Panda PA [facility] [address] [place] [address] (Wo rk) 06/02/2022 Infusion Hematology and Oncology 06/16/2022 Infusion Hematology and Oncology 06/21/2022 Office Visit Neurology Tyler Rojas MD [facility] [address] [place], [place] [phone] (Wo rk) 06/30/2022 Infusion Hematology and Oncology 07/14/2022 Infusion Hematology and Oncology 07/28/2022 Infusion Hematology and Oncology 08/11/2022 Infusion Hematology and Oncology 11/04/2022 Office Visit Rheumatology Dante Freedman PA [facility] RHEUMATOLOGY [place] [address] (Wo rk) documented as of this encounter Visit Diagnoses Diagnosis Anemia of chronic renal failure, stage 4 (severe) documented in this encounter Administered Medications Inactive Administered Medications - up to 3 most recent administrations Medication Order MAR Action Action Date Dose Rate Site darbepoetin cristy-polysorbate Given 12/10/2020 1:06 PM EDT 300 mc g Right Arm (Aranesp) (300 mcg/0.6 mL) injection 300 mcg 300 mcg, Subcutaneous, ONCE, 1 dose, On Tue12/10/20 at 1300, Hold parameters for MDS and chemotherapy-induced anemia: Hemoglobin greater than or equal to 10 gm/dL Hematocrit greater than or equal to 30% Hold parameters for CKD: Hemoglobin greater than or equal to 12 gm/dL Hematocrit greater than or equal to 36%, Routine, What is the indication of use? Chronic Kidney Disease (CKD) documented in this encounter Care Teams President And Chief Operating Officer Relationship Specialty Start Date End Date Violetta Sanford MD PCP - General 04/02/14 [address] [place] [address] documented as of this encounter
--- OUTSIDE RECORDS SUMMARY | 2022-05-24 10:50 | XMS_ITS | Encounter Summary ---
:1955 Author Organization [facility] [place] [address] Care Team Providers Name Role Phone Violetta Sanford MD Primary Care Provider Encounter Details Date Type Department Care Team Description 10/09/2020 Telephone Rheumatology at [facility] Phyllis Duenas, [facility] Giovana [facility] [place] [phone] RHEUMATOLOGY DEPT [phone] [place] [id number] (Wo rk) Social History Tobacco Use Types [...] this encounter Miscellaneous Notes Telephone Encounter - Sammy Zaldivar RN - 10/09/2020 2:45 PM EDT Erroneous entry documented in this encounter Plan of Treatment Upcoming Encounters Date Type Specialty Care Team Description 05/26/2022 Office Visit Otolaryngology Ricardo Panda PA [facility] [place], [place] [address] (Wo rk) 06/02/2022 Infusion Hematology and Oncology 06/16/2022 Infusion Hematology and Oncology 06/21/2022 Office Visit Neurology Tyler Rojas MD [facility] Neurology [place], [place] [phone] (Wo rk) 06/30/2022 Infusion Hematology and Oncology 07/14/2022 Infusion Hematology and Oncology 07/28/2022 Infusion Hematology and Oncology 08/11/2022 Infusion Hematology and Oncology 11/04/2022 Office Visit Rheumatology Dante Freedman PA [facility] RHEUMATOLOGY [place], [place] [address] (Wo rk) documented as of this encounter Visit Diagnoses Not on filedocumented in this encounter Care Teams Brew House Supervisor Relationship Specialty Start Date End Date Violetta Sanford MD PCP - General 04/02/14 [address] [place] [address] documented as of this encounter
--- OUTSIDE RECORDS SUMMARY | 2022-05-24 10:50 | XMS_ITS | Encounter Summary ---
:1955 Author Organization [facility] [place] [address] Care Team Providers Name Role Phone Violetta Sanford MD Primary Care Provider Encounter Details Date Type Department Care Team Description 02/16/2021 External Results Solid Organ Transpla nt at [facility] [place] [phone] Social History Tobacco Use Types Packs/Day [...] 05/26/2022 Office Visit Otolaryngology Ricardo Panda PA [facility] [address] [place] [address] (Wo rk) 06/02/2022 Infusion Hematology and Oncology 06/16/2022 Infusion Hematology and Oncology 06/21/2022 Office Visit Neurology Tyler Rojas MD [facility] [address] [place] [address]22 (Wo rk) 06/30/2022 Infusion Hematology and Oncology 07/14/2022 Infusion Hematology and Oncology 07/28/2022 Infusion Hematology and Oncology 08/11/2022 Infusion Hematology and Oncology 11/04/2022 Office Visit Rheumatology Dante Freedman PA [facility] [place]HEUMATOLOGY [place], [place] [address] (Wo rk) documented as of this encounter Procedures Procedure Name Priority Date/Time Associated Diagnosis Comme nts LAB SCAN Routine 02/11/2021 Results for thi s procedure are in the resu lts section. documented in this encounter Results Scan Doc: Lab (02/11/2021) Narrative This result has an attachment that is no t available. Historical Provider MD SANDOVAL MGR SCAN EXT ORDR/RSLT documented in this encounter Visit Diagnoses Not on filedocumented in this encounter Care Teams Division Head Relationship Specialty Start Date End Date Violetta Sanford MD PCP - General 04/02/14 [address] [place] [address] documented as of this encounter
--- OUTSIDE RECORDS SUMMARY | 2022-05-24 10:50 | XMS_ITS | Encounter Summary ---
:1955 Author Organization [facility] [place] [address] Care Team Providers Name Role Phone Violetta Sanford MD Primary Care Provider Reason for Visit Reason Onset Date Comments Labs Only 02/11/2021 Lab Tracking Encounter Details Date Type Department Care Team Description 02/11/2021 Telephone Hematology/Oncology at [facility], Labs Only (Lab Tracking) [facility] Angelica Gilbert RN [address] [place] [phone] Social History Tobacco Use Types Packs/Day [...] Telephone Encounter - Angelica Malhotra RN - 02/11/2021 1:44 PM EDT LAB TRACKING Brett Dailey [id number] 1955 DIAGNOSIS: anemia d/t CKD stage IV, h/o kidney transplant LABS: CBC every 3 weeks MEDICATIONS: Aranesp 300 mcg every 3 weeks if HGB <12 ASSESSMENT/PLAN: Lab sent to Carrie Trotter APRN for review. Will continue every 3 week CBC and Aranesp. Will go to lab at [facility] 1 hr prior to infusion appts here for CBC. He prefers afternoon appts. Results for BRETT DAILEY ( ) as of 02/11/2021 15:10 Ref. Range 12/10/2020 00:00 12/31/2020 00:00 01/21/2021 00:00 02/11/2021 00:00 WBC Unknown 6.83 8.00 7.13 7.81 Hemoglobin Unknown 9.7 9.8 9.6 8.9 Hematocrit Unknown 30.4 30.8 31.3 28.2 MCV Unknown 92.7 95.1 94.6 Platelets Unknown 192 194 212 210 Neutr Abs (ANC) Unknown 4.23 5.21 4.12 4.79 Iron Unknown 62 42 56 TIBC Unknown 184 180 207 Ferritin Unknown 112 117 134 Transferrin Unknown 23 27 documented in this encounter Plan of Treatment Upcoming Encounters Date Type Specialty Care Team Description 05/26/2022 Office Visit Otolaryngology Ricardo Panda PA [facility] [address] [place] [address] (Wo rk) 06/02/2022 Infusion Hematology and Oncology 06/16/2022 Infusion Hematology and Oncology 06/21/2022 Office Visit Neurology Tyler Rojsa MD [facility] Neurology [place], [place] [phone] (Wo rk) 06/30/2022 Infusion Hematology and Oncology 07/14/2022 Infusion Hematology and Oncology 07/28/2022 Infusion Hematology and Oncology 08/11/2022 Infusion Hematology and Oncology 11/04/2022 Office Visit Rheumatology Dante Freedman PA [facility] RHEUMATOLOGY [place], [place] [address] (Wo rk) documented as of this encounter Procedures Procedure Name Priority Date/Time Associated Diagnosis Comme nts CBC (WITH DIFF) Routine 02/11/2021 Results for this procedure are in the resu lts section. documented in this encounter Results CBC (with Diff) (02/11/2021) P athologist Signature WBC 7.81 Hemoglobin 8.9 Hematocrit 28.2 MCV 94.6 Platelets 210 Neutr Abs (ANC) 4.79 Specimen (Source) Anatomical Location Collection Method / Collectio n Time Received Time / Laterality Volume Blood Historical Provider HEMATOLOGY ORDERABLES documented in this encounter Visit Diagnoses Not on filedocumented in this encounter Care Teams Turn Down Man Relationship Specialty Start Date End Date Violetta Sanford MD PCP - General 04/02/14 [address] [place] [address] documented as of this encounter
--- OUTSIDE RECORDS SUMMARY | 2022-05-24 10:50 | XMS_ITS | Encounter Summary ---
:1955 Author Organization [facility] [place] [address] Care Team Providers Name Role Phone Violetta Sanford MD Primary Care Provider Reason for Visit Consultation (Routine) - Closed Specialty Diagnoses / Procedures Referred By Contact Refer red To Contact Hematology and Oncology Diagnoses CKD (chronic kidney disease) stage 4, GFR 15-29 ml/min Anemia of chronic renal failure, stage 4 (severe) Alejo Garnett Hem Onc Office MD Thang [address] [place] [phone] [place] [address] Referral ID Status Reason Start Date Expiration Date Visits V isits Requested Authorized [id number] Closed Consult, 09/26/2020 09/26/2021 26 26 Test & Treat Encounter Details Date Type Department Care Team Description 10/08/2020 Office Visit Hematology/Oncology Nicky Baez of chronic renal failure, stage 4 (severe); at [facility] MD James H/O kidney transplant [address] [place] [id number] HEMATOLOGY/ONCOLOGY [phone] DEPT. [place], [place] [address] (Wo rk) Social History Tobacco [...] Sign Reading Time Taken Comments Blood Pressure 142/54 10/08/2020 2:51 PM EDT Pulse 78 10/08/2020 2:51 PM EDT Temperature 37.2 ??C (99 ??F) 10/08/2020 2:51 PM EDT Respiratory Rate 16 10/08/2020 2:51 PM EDT Oxygen Saturation 98% 10/08/2020 2:51 PM EDT Inhaled Oxygen - - Concentration Weight 131.1 kg (289 lb) 10/08/2020 2:51 PM subtracted 18lbs for EDT prothesis Height 186.7 cm (6' 1.5) 10/08/2020 2:51 PM EDT Body Mass Index 37.61 10/08/2020 2:51 PM EDT documented in this encounter Progress Notes Nicky Baez MD - 10/08/2020 3:00 PM EDT H[facility]ology [facility] [place] [id number] NEW PATIENT EVALUATION Patient Active Problem List Diagnosis ??? Renal osteodystrophy ??? Other postherpetic nervous system involvement ??? Renal tubular acidosis ??? Hypervolemia ??? PAF (paroxysmal atrial fibrillation) ??? Phantom limb pain ??? Chronic atrial fibrillation ??? Anemia of chronic renal failure, stage 4 (severe) ??? Prophylactic immunotherapy ??? Persistent proteinuria ??? Encounter for long-term (current) use of other medications ??? Aftercare following organ transplant ??? Hyperlipidemia [...] 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ifestations HISTORY OF PRESENT ILLNESS: Patient prefers to be called: [place] Support person(s) : , Linda It was my pleasure to meet Leroy Dailey today. Leroy Dailey is a 65 y.o. year old male beingseen for evaluation of anemia. he is referred in consultaion from Dr Garnett. 65 y.o. white male with a history of ESRD secondary to diabetic nephropathy s/p DD renal transplant on 02/29/08 with transplanted kidney and ckd stage 4 (GFR mid 20s) referred for management of anemia, presumably due to renal insufficiency. L arm shingles this winter which has worn him out. Treated w/ ACV and now on neurontin for PHN. Recently got his hgbA1C down to 6.4! He is seen at the request of Dr. Garnett for evaluation for erythropoietin supplementation to helpwith his chronic anemia. PMHX: Diabetes mellitus with nephropathy and neuropathy - followed by Dr Hernandez Stage IV kidney disease Neuropathy and autonomic instability Atrial fibrillation congestive heart failure Peripheral vascular disease Charcot's arthropathy Renal osteodystrophy Bilateral BKA Essential tremor Delayed wound healing History of renal transplant Immunosuppression Obesity Hyperlipidemia Reflux esophagitis. Phantom limb pain Left arm Zoster winter MELISSA - sleeps better w/o the CPAP. PSHX: Bilateral BKA Renal transplant 2008 Appendectomy 06/16/2013 Past Surgical History: Procedure Laterality Date ??? [...] 06/26/2019 [facility] RAD ULTRASOUND ROS Energy level : low Pain: phantom pain 1X per month Appetite:good Unexpected weight loss or gain:No Change in adenopathy or other masses:No Fevers/chills/sweats:No Bruising/bleeding/melena:No Recent infections:No Headaches:neg Vision:neg Hearing:neg Sinus: neg Seasonal Allergies: neg Mouth sores:neg Dentition: Good Swallowing: neg GERD : neg Nausea/vomiting: neg diarrhea/constipation:No SOB/SMITH/pulmonary sx: no Cardiac symptoms: sx: negative Skin rashes or petechiae:No Musculoskeletal complaints:No Extremities: Negative upper and lower bilaterally Neurologic symptoms:No Mental Status changes: neg Mood: Normal Sleep: Some difficulty sleeping MEDS: Outpatient Medications Marked as Taking for the 10/08/20 encounter (Office Visit) with Nicky Baez MD Medication Sig Dispense Refill ??? Prograf 1 mg Capsule Take 1 capsule by mouth daily. Kidney transplant 02/29/2008 dx code Z94.0 D/Cdate 03/11/2008 30 capsule 11 ??? Prograf 0.5 mg Capsule Take 1 capsule by mouth nightly. Kidney transplant 02/29/2008 dx code Z94.0D/C date 03/11/2008 30 capsule 11 ??? gabapentin (Neurontin) 100 mg Capsule Take 2 capsules by mouth 3 times daily for 89 days. Pt canincrease dose by 100 mg each dose until neuropathic pain is managed. Max dose 1800 mg daily 180 capsule 3 ??? losartan (Cozaar) 25 mg Tablet Take 1 tablet by mouth daily. 90 tablet 3 ??? hydrALAZINE (Apresoline) 100 mg Tablet Take 1 tablet by mouth 3 times daily. 90 tablet 5 ??? FreeStyle Gilberto 14 Day Sensor Kit 6 TIMES DAILY 6 kit 3 ??? guaiFENesin 200 mg Tablet Take 400 mg by mouth every 4 hours as needed for Congestion. ??? Blood-Glucose Sensor (Blink for iPhone and Android G6 Sensor) Device by [facility]Non-Drug; Combo Route) route. Sensor, community health outreach worker andtransmitter ??? metoprolol succinate XL (Toprol-XL) 50 mg Tablet Sustained Release 24 hr Take 1 tablet by mouth daily. 90 tablet 1 ??? triamcinolone (NASACORT or NASACORT OTC) 55 mcg Aerosol, [place] 2 sprays by Nasal route daily. 1 [...] gauge x 1/2 Needle 1 Device by [facility]Non- Drug; Combo Route) route 3 times daily. [...] needed for Pain. Reported on 08/06/2016 ??? ipratropium-albuterol (DUONEB) 0.5 mg-3 mg(2.5 mg base)/3 mL Solution for Nebulization Take 3 mLs by nebulization 2 times daily. 1 ??? STIOLTO RESPIMAT 2.5-2.5 mcg/actuation Mist Inhale 2 puffs into the lungs daily. 1 ??? Miscellaneous Medical Supply [facility] 4 Devices by [facility].(Non-Drug; Combo Route) route daily. Rubber sheath for leg prosthesis (2 pairs) 4 each PRN ??? VENTOLIN HFA 90 mcg/actuation HFA Aerosol Inhaler Inhale 2 puffs into the lungs as needed. 0 ??? Insulin Lispro (HUMALOG) 100 unit/mL Insulin Pen Inject 30-40 Units subcutaneously 4 times daily. ??? BD INSULIN PEN NEEDLE UF ORIG 29 gauge x 1/2 Needle 0 ??? montelukast (SINGULAIR) 10 mg tablet Take 10 mg by mouth daily. Allergies: Allergies Allergen Reactions ??? Penicillins Anaphylaxis ??? Iftikhar Inhibitors Cough ??? Clindamycin Hcl Rash ??? Allergenic Extracts Birch and Nut Trees, cats, dust, pollen bird feathers ??? Ibuprofen ??? Levemir [Insulin Detemir] Contraindicated - kidney transplant ??? Sulfamethoxazole-Trimethoprim FAMILY HISTORY: Mother: [place] [facility] [place] complication cholecystectomy (CVA and infection) Father: cancer Sibs: cancer Children: 3 biologic children. One son with obesity and DM. Depression. Another son w/ complicationsfrom army combat. Third son messed up Other: negative SOCIAL HISTORY Personal: Linda (3rd ) 5 years. They went to high school together. 3 children from prior marriage. Work history: disability X 45 years; Previously worked in [employer]. ETOH: rare Smoking: Quit, remote smoker Marijuana or other recreational drug use: none HIPPA Contact Permission: OK to talk to Linda and tomasa Jay RN, works at [employer]. OK to leave message on home or cell phone: home OK to leave medical information on home or cell phone:home PHYSICAL EXAM BP 142/54 (Patient Position: Sitting) Pulse 78 Temp 37.2 ??C (99 ??F) (Temporal) Resp 16 Ht 186.7 cm (6' 1.5) Wt 131.1 kg (289 lb) Comment: subtracted 18lbs for prothesis SpO2 98% BMI 37.61 kg/m?? Body surface area is 2.61 meters squared. GENERAL: Leroy Dailey appears well and is in no acute distress. ENT: Oral pharynx clear. EYES: [place] NECK: Supple without adenopathy. AXILLARY: no adenopathy INGUINAL LN: no adenopathy OTHER LYMPH: no adenopathy CARDIAC: Regular rate and rhythm without S3,S4 or murmurs. LUNGS: Clear to auscultation./percussion ABDOMEN: Soft and non-tender without hepatosplenomegaly or masses. EXTREMITIES: No cyanosis, clubbing, edema or calf tenderness. SKIN: No bruises or petechiae. NEUROLOGICAL: Alert and oriented to person, place and time. MUSCULOSKELETAL: No spinal or chest wall tenderness. LABORATORY STUDIES No results found for this or any previous visit (from the past 72 hour(s)). Results for LEROY DAILEY ( ) as of 10/08/2020 15:26 Ref. Range 09/01/2020 09:39 WBC Latest Ref Range: 4.0 - 9.5 x10(3)/mcL 7.9 RBC Latest Ref Range: 4.58 - 5.54 x10(6)/mcL 3.13 (L) Hemoglobin Latest Ref Range: 13.7 - 16.5 gm/dL 9.5 (L) Hematocrit Latest Ref Range: 40.5 - 48.5 % 29.2 (L) MCV Latest Ref Range: 82.9 - 93.1 fL 93.3 (H) MCH Latest Ref Range: 27.5 - 32.1 pg 30.4 MCHC Latest Ref Range: 32.0 - 35.7 gm/dL 32.5 RDWSD Latest Ref Range: 36.0 - 45.0 fL 46.5 (H) RDWCV Latest Ref Range: 11.4 - 13.8 % 13.8 Platelets Latest Ref Range: 145 - 357 x10(3)/mcL 207 MPV Latest Ref Range: 7.6 - 12.[address] % Latest Ref Range: 0.7 - 2.6 % 2.[address] Abs Latest Ref Range: 0.030 - 0.120 x10(6)/mcL 0.060 Immature Retic% Latest Ref Range: 0.0 - 15.6 % 12.1 Reticulated Hgb Latest Ref Range: 31.3 - 40.2 pg 33.8 nRBC % Auto Latest Units: % 0.0 nRBC Abs Auto Latest Ref Range: 0.000 - 0.000 x10(3)/mcL 0.000 Neutr Abs (ANC) Latest Ref Range: 1 - 6 x10(3)/mcL 4.65 Neutrophils % Latest Units: % 58.5 Immature Gran % Latest Units: % 0.30 Lymphocytes % Latest Units: % 28.5 Monocytes % Latest Units: % 8.4 Eosinophils % Latest Units: % 3.7 Basophils % Latest Units: % 0.6 Courtney Gran Abs Latest Ref Range: 0.00 - 0.04 x10(3)/mcL 0.02 Lymphocytes Abs Latest Ref Range: 0.9 - 3.2 x10(3)/mcL 2.3 Monocyte Abs Latest Ref Range: 0.3 - 0.9 x10(3)/mcL 0.7 Eosinophils Abs Latest Ref Range: 0.0 - 0.4 x10(3)/mcL 0.3 Basophils Abs Latest Ref Range: 0.0 - 0.1 x10(3)/mcL 0.0 Sodium Latest Ref Range: 135 - 145 mmol/L 139 Potassium Latest Ref Range: 3.5 - 5.0 mmol/L 4.4 Chloride Latest Ref Range: 98 - 107 mmol/L 109 (H) CO2 Latest Ref Range: 22 - 31 mmol/L 20 (L) Anion Gap Latest Ref Range: 5 - 15 mmol/L 10 BUN Latest Ref Range: 10 - 20 mg/dL 39 (H) Creatinine Latest Ref Range: 0.80 - 1.50 mg/dL 2.54 (H) Estimated GFR Latest Ref Range: >=60 mL/min/1.73 m?? 25 (L) Calcium Latest Ref Range: 8.5 - 10.5 mg/dL 9.3 Magnesium Latest Ref Range: 0.69 - 1.07 mmol/L 0.73 Phosphorus Latest Ref Range: 2.5 - 4.5 mg/dL 3.6 Uric Acid Latest Ref Range: 3.5 - 8.5 mg/dL 7.3 Glucose Lvl Latest Ref Range: 65 - 199 mg/dL 144 Hemoglobin A1C Latest Ref Range: 4.3 - 5.6 % 6.5 (H) Est Avg Gluc Latest Units: mg/dL 140 Total Protein Latest Ref Range: 6.1 - 8.0 gm/dL 7.0 Albumin Latest Ref Range: 3.2 - 5.2 gm/dL 3.4 Total Bilirubin Latest Ref Range: 0.2 - 1.3 mg/dL 0.2 Alk Phos Latest Ref Range: 40 - 130 unit/L 112 AST Latest Ref Range: 0 - 39 unit/L 12 ALT Latest Ref Range: 0 - 55 unit/L 11 Chol, Total Latest Units: mg/dL 92 Lipid Interpretation Unknown See Note Tacrolimus Lvl Latest Units: ng/mL 4.0 PATHOLOGY: none RADIOLOGY STUDIES REVIEWED: None ASSESSMENT/PLAN: Leroy Dailey is a very pleasant 65 y.o. male referred by Dr Garnett for consideration of erythropoietin supplementation for anemia due to end-stage renal disease, status post transplant. I reviewed Mr. De Leon record in detail. He has a very complicated past medical history, primarily long-term complications of obesity and diabetes. I am happy to help with the erythropoietin supplementation, which is appropriate for him. His hemoglobin has been less than 10, making him eligible per Medicare guidelines. I did not find a recent baseline erythropoietin level or iron studies so he lives will be drawn today. I explained that erythropoietin will be given every 3 weeks. He will go to the [facility] lab for CBC andthen come down to the cancer center, [facility] for the Aranesp shot. His hemoglobin needs to be less than 12 to qualify for the shot. If his hemoglobin is over 12 then we will wait another 3 weeks and repeat. The goal of the erythropoietin shot is to raise the hemoglobin, which hopefully will result in improved energy and exercise tolerance. I told him it usually is not a dramatic response, but it can definitely be helpful both with anemia and quality of life. Discussed erythropoietin with the patient. Discussed what erythropoeitin is and the guidelines for supplementation he is making insufficient epo for his level of anemia, due to renal insufficiency/renal transplant. Discussed medicare guidelines and q 3 week dosing with CBC prior. Will reassess response both in H/H and energy in 3 mos. Discussed risk for HTN, CVA and thrombosis it H/H goes too high. Discussed potential worsining of malignancy but to date we have nothing to confirm a malignancy in this pt. Pt agrees to proceed with supplementation. REcommmend starting at aranesp 300mcg q 3 weeks for hgb <12.0. his hgb was less than 10 in past which is another medicare guideline for initialization of the therapy. Iron studies willbe checked today. Plan: ?? Labs today: Cbc, epo level, iron, tibc, ferritin ?? Aranesp 300mg on Tuesday this week then q 3 weeks with cbc prior. ?? Aranesp 300mg for hgb <12. ?? RTC in 12 weeks with cbc, appt and aranesp to follow. I discussed all of the above with the patient and all of his questions were answered. Support and counseling given as appropriate. This note was written or modified using [employer] voice recognition software. The final note was screened for mistakes. Please excuse any remaining errors. total time: time in counselling: Copy Violetta Sanford MD . Dulce Quinn RN - 10/08/2020 3:00 PM EDT MEDICAL ONCOLOGY INITIAL NURSING ASSESSMENT ADVANCE DIRECTIVES: In EDH [ ] Has documents [ ] Will bring in [ ] Has them done will try to bring in IF NO: Advance Directive pamphlet provided : Referral to Care Management : PRESENTING SYSTEMS and PATHOLOGY: REVIEW OF SYSTEMS: Prior Radiotherapy: no[ X ] Yes[ ]Site Date Facility Prior Chemotherapy: no[ X ] Yes[ ] Drug: Oncologist- LastTreatment: NO: YES: Claustrophobia or requires sedation for MRIs X Allergy to CT or MRI contrast agent or iodine or shellfish X Diabetic and on metformin X Metal in body, implanted device, worked with metal, body piercings,braces X implanst in eyes Dentures or hearing device X-upper dentures and hearing aides Pacemaker X Difficulty breathing while lying flat X Kidney problems/creatinine X Balance difficulty: [ ]no [X ]yes At risk for fall: [ ] no [X ] yes If yes, actions implemented to prevent fall. Patient/family instructed to avoid independent ambulation. Use wheelchair and ask for assistance of staff while in the clinic. ADL [X ] no limits [ ] needs dressing assistance [ ] needs meal assistance Assistive device:[ ]none [ ]cane [ ]walker [X ]wheelchair [ ]other: hoverround, can walk short distances, below the knee amps PAIN ASSESSMENT: [0] out of 10 Location: Description: [ ] Dull [ ] Sharp [ ] Burning [ ] Throbbing [ ] Radiating [ ] Continuous [ ]Intermittent Aggravating Factors: [ ] Movement [ ] Position [ ]Immobility [ ]Other Alleviating Factors: [ ]Medication [ ] Positioning [ ] Other Current Pain Management Plan: [ ]Satisfied [ ] Not satisfied SOCIAL ASSESSMENT: See EDH social assessment information entered. Support Systems: Linda. transportation plan: [X ]private vehicle [ ] RCT needs Social Work referral [ ] Unknown at this time needs Social Work referral Barriers to treatment: Referrals/Interventions: LEARNING STYLE: Visual and verbal, wants written material and verbal discussion. TEACHING: __ NCI ???Chemotherapy and You?? and folder given __ Specific chemotherapy literature provided and reviewed with patient documented in this encounter Plan of Treatment Upcoming Encounters Date Type Specialty Care Team Description 05/26/2022 Office Visit Otolaryngology Ricardo Panda PA [facility] [place] [address] (Wo rk) 06/02/2022 Infusion Hematology and Oncology 06/16/2022 Infusion Hematology and Oncology 06/21/2022 Office Visit Neurology Tyler Rojas MD [facility] Neurology [place], [place] [phone] (Wo rk) 06/30/2022 Infusion Hematology and Oncology 07/14/2022 Infusion Hematology and Oncology 07/28/2022 Infusion Hematology and Oncology 08/11/2022 Infusion Hematology and Oncology 11/04/2022 Office Visit Rheumatology Dante Freedman PA [facility] RHEUMATOLOGY [place], [place] [address] (Wo rk) documented as of this encounter Visit Diagnoses Diagnosis Anemia of chronic renal failure, stage 4 (severe) H/O kidney transplant Kidney replaced by transplant documented in this encounter Care Teams Sql Manager Relationship Specialty Start Date End Date Violetta Sanford MD PCP - General 04/02/14 [address] [place] [address] documented as of this encounter
--- OUTSIDE RECORDS SUMMARY | 2022-05-24 10:50 | XMS_ITS | Encounter Summary ---
:1955 Author Organization [facility] Address [address] [place] [address] Care Team Providers Name Role Phone Violetta Sanford MD Primary Care Provider Encounter Details Date Type Department Care Team Description 10/28/2020 Laboratory Appointment Lab 3L [facility] Type 2 diabetes [facility] mellitus with [facility] hypergly emia, with Drive long-term current use [place], [place] of insulin [phone] Social History Tobacco Use Types Packs/Day Years [...] 05/26/2022 Office Visit Otolaryngology Ricardo Panda PA [facility] er [address] [place] [address] (Wo rk) 06/02/2022 Infusion Hematology and Oncology 06/16/2022 Infusion Hematology and Oncology 06/21/2022 Office Visit Neurology Tyler Rojas MD [facility] Dr [address]i [place] [phone] (Wo rk) 06/30/2022 Infusion Hematology and Oncology 07/14/2022 Infusion Hematology and Oncology 07/28/2022 Infusion Hematology and Oncology 08/11/2022 Infusion Hematology and Oncology 11/04/2022 Office Visit Rheumatology Dante Freedman PA [facility] RHEUMATOLOGY [place], [place] [address] (Wo rk) documented as of this encounter Procedures Procedure Name Priority Date/Time Associated Diagnosis Comme [facility] HEMOGLOBIN A1C Routine 10/28/2020 11:50 AM Type 2 diabetes Results for this EDT mellitus with procedure are in hyperglycemia, with the resu lts long-term current section. use of insulin documented in this encounter Results (ABNORMAL) Hemoglobin A1c (10/28/2020 11:50 AM EDT) Analysis Performed At Patho logist Time Signature Hemoglobin A1C 6.0 (H) 4.3 - 5.6 [facility] Comment: Reference Range: 4.3 [...] Mellitus, Diabetes Care 2013; 36: Suppl. 1, N07-62 Est Avg Gluc 125 mg/dL [facility] Comment: eAG equivalents for HbA1c percentages: HbA1c(%) ?eAG(mg/dL) 6.0 ?126 6.5 ?140 7.0 ?154 7.5 ?169 8.0 ?183 8.5 ?197 9.0 ?212 9.5 ?226 10.0 ? 240 Limitations: The eAG calculation has not been validated on women, individuals below 18 years old and above 70 years old, and individuals with hemoglobinopathies. Additional resources are available on [facility] ADA website. Scooby MALDONADO, Nba J, Sydnee R, et al. ??Tr anslating the A1C assay into estimated average glucose values. ??Diabetes Care 2008:31(8):6008-4491. Specimen Anatomical Collection Method Collection Time Receive d Time (Source) Location / / Volume Laterality Blood specimen 10/28/2020 11:50 1 (specimen) AM EDT 12:00 PM EDT Resulting Agency Comment Spec In Lab Donell Hernandez MD CHEMISTRY ORDERABLES Performing Organization Address City/State/Z[place] [address] documented in this encounter Visit Diagnoses Diagnosis Type 2 diabetes mellitus with hyperglyce maki, with long-term current use of insulin documented in this encounter Care Teams Rig Supervisor Relationship Specialty Start Date End Date Violetta Sanford MD PCP - General 04/02/14 [address] [place] [address] documented as of this encounter
--- OUTSIDE RECORDS SUMMARY | 2022-05-24 10:50 | XMS_ITS | Encounter Summary ---
:1955 Author Organization [facility] [place] [address] Care Team Providers Name Role Phone Violetta Sanford MD Primary Care Provider Encounter Details Date Type Department Care Team Description 09/01/2020 Laboratory Appointment Lab 3L [facility] H/O kidney transplant; [facility] CKD (chronic kidney disease) stage 4, GFR 15-29 ml/min; [facility] Type 2 di abetes mellitus with hyperglycemia, with long- [place] [address] Social History Tobacco Use Types Packs/Day Years [...] Panda PA [facility] [address] [place] [address] (Wo rk) 06/02/2022 Infusion Hematology and Oncology 06/16/2022 Infusion Hematology and Oncology 06/21/2022 Office Visit Neurology yTler Rojas MD [facility] Neurology [place], [place] [phone] (Wo rk) 06/30/2022 Infusion Hematology and Oncology 07/14/2022 Infusion Hematology and Oncology 07/28/2022 Infusion Hematology and Oncology 08/11/2022 Infusion Hematology and Oncology 11/04/2022 Office Visit Rheumatology Dante Freedman PA [facility] RHEUMATOLOGY [place], [place] [address] (Wo rk) documented as of this encounter Procedures Procedure Name Priority Date/Time Associated Comments Diagnosis HEMOGRAM STAT 09/01/2020 9:39 AM H/O kidney Results f or this EST transplant procedure are i n the results section. DIFFERENTIAL, STAT 09/01/2020 9:39 AM H/O kidney Results for this AUTOMATED EST transplant procedure are i n the results section. HC FK-506 STAT 09/01/2020 9:39 AM H/O kidney Results f or this (TACROLIMUS) EST transplant procedure are i n the results section. HC RETIC,AUTO STAT 09/01/2020 9:39 AM H/O kidney Results for this INCLUDES RETHE & IRF EST transplant procedu re are in the results section. HC CBC,PLT & AUTO STAT 09/01/2020 9:39 AM H/O kidney DIFF EST transplant HC URIC ACID, SERUM STAT 09/01/2020 9:39 AM H/O kidney Re sults for this EST transplant procedure are i n the results section. HC PHOSPHORUS, SERUM STAT 09/01/2020 9:39 AM H/O kidney R esults for this EST transplant procedure are i n the results section. HC MAGNESIUM, SERUM STAT 09/01/2020 9:39 AM H/O kidney Re sults for this EST transplant procedure are i n the results section. HC HEMOGLOBIN A1C STAT 09/01/2020 9:39 AM Type 2 diabetes R esults for this EST mellitus with procedure are in hyperglycemia, with the resu lts long-term current section. use of insulin HC CHOLESTEROL STAT 09/01/2020 9:39 AM H/O kidney Results for this EST transplant procedure are i n the results section. HC VENIPUNCTURE STAT 09/01/2020 9:39 AM H/O kidney Result s for this EST transplant procedure are i n the results section. documented in this encounter Results Differential, Automated (09/01/2020 9:39 AM EST) P athologist Signature Neutrophils % 58.5 % [facility] Neutr Abs (ANC) 4.65 1.70 - [facility] 6.10 [facility] x10(3)/[facility] LABORATORY Lymphocytes % 28.5 % [facility] Lymphocytes Abs 2.3 0.9 - 3.2 [facility] x10(3)/[facility] LABORATORY Monocytes % 8.4 % [facility] Monocyte Abs 0.7 0.3 - 0.9 [facility] x10(3)/[facility] LABORATORY Eosinophils % 3.7 % [facility] Eosinophils Abs 0.3 0.0 - 0.4 [facility] x10(3)/[facility] LABORATORY Basophils % 0.6 % [facility] Basophils Abs 0.0 0.0 - 0.1 [facility] x10(3)/[facility] LABORATORY Immature Gran % 0.30 % [facility] Comment: Immature granulocytes(IG's)percentage an d absolute count will include metamyelocytes, myelocytes, and promyelo cytes. Blood smears from CBCs yielding IG's will be scanned manually for concor dance. If this scan disagrees with the automated IG or if promyelocytes are not ed, a manual differential will be performed. Courtney Gran Abs 0.02 0.00 - 0.04 x10(3)/[facility] Specimen Anatomical Collection Method Collection Time Receive d Time (Source) Location / / Volume Laterality Blood specimen 09/01/2020 9:39 AM 021 9:49 (specimen) EST AM EST Resulting Agency Comment Spec In Lab Alejo Garnett MD HEMATOLOGY ORDERABLES Performing Organization Address City/State/[place] [address] (ABNORMAL) Hemogram (09/01/2020 9:39 AM EST) Analysis Performed At [facility] Time Signature WBC 7.9 4.0 - 9.5 [facility] x10(3)/[facility] LABORATORY RBC 3.13 (L) 4.58 - JERE MELI 5.54 [facility] x10(6)/[facility] LABORATORY Hemoglobin 9.5 (L) 13.7 - [facility] 16.5 gm/dL [facility] Hematocrit 29.2 (L) 40.5 - [facility] 48.5 % [facility] MCV 93.3 (H) 82.9 - [facility] 93.1 [facility] LABORATORY MCH 30.4 27.5 - [facility] 32.1 pg [facility] MCHC 32.5 32.0 - [facility] 35.7 gm/dL [facility] Platelets 207 145 - 357 [facility] x10(3)/[facility] LABORATORY RDWSD 46.5 (H) 36.0 - [facility] 45.0 [facility] LABORATORY RDWCV 13.8 11.4 - [facility] 13.8 % [facility]ORY MPV 8.5 7.6 - 12.9 [facility] LABORATORY nRBC % Auto 0.0 % [facility] nRBC Abs Auto 0.000 0.000 - [facility] 0.000 [facility] x10(3)/[facility] LABORATORY Specimen Anatomical Collection Method Collection Time Receive d Time (Source) Location / / Volume Laterality Blood specimen 09/01/2020 9:39 AM 021 9:49 (specimen) EST AM EST Resulting Agency Comment Spec In Lab Alejo Garnett MD HEMATOLOGY ORDERABLES Performing Organization Address City/State/[place] [address] (ABNORMAL) Hemoglobin A1c (09/01/2020 9:39 AM EST) Analysis Performed At [facility] Time Signature Hemoglobin A1C 6.5 (H) 4.3 - 5.6 [facility] % [facility] Comment: Reference Range: 4.3 [...] Mellitus, Diabetes Care 2013; 36: Suppl. 1, S67-79 Est Avg Gluc 140 mg/dL [facility] Comment: eAG equivalents for HbA1c percentages: HbA1c(%) ?eAG(mg/dL) 6.0 ?126 6.5 ?140 7.0 ?154 7.5 ?169 8.0 ?183 8.5 ?197 9.0 ?212 9.5 ?226 10.0 ? 240 Limitations: The eAG calculation has not been validated on women, individuals below 18 years old and above 70 years old, and individuals with hemoglobinopathies. Additional resources are available on [facility] ADA website. Scooby MALDONADO, Nba J, Sydnee R, et al. ??Tr anslating the A1C assay into estimated average glucose values. ??Diabetes Care 2008:31(8):6998-1668. Specimen Anatomical Collection Method Collection Time Receive d Time (Source) Location / / Volume Laterality Blood specimen 09/01/2020 9:39 AM 021 9:49 (specimen) EST AM EST Resulting Agency Comment Spec In Lab Donell Hernandez MD CHEMISTRY ORDERABLES Performing Organization Address City/State/[place] [address] Cholesterol, total (09/01/2020 9:39 AM EST) athologist Signature Chol, Total 92 mg/dL [facility] Comment: Lower Risk: <200 mg/dL Average Risk: 200-239 mg/dL Higher Risk: >zj=723 mg/dL Lipid Interpretation See Note [facility] Comment: Lipid management should be guided by a p atient? s ASCVD risk, goals and preferences. ACC/AHA Guidelines recommend high intens ity statin if clinical ASCVD or LDL greater than or equal to 190 mg/dL. http://Radiation Watch.pfwaterworks/YTD-MCS-Rwcscdpbc Adults aged 40-75 with LDL 70-189 mg/dL should have their 10 year ASCVD risk estimated with the ACC/AHA ASCVD risk es timator http://tools.acc.org/GIVZK-Pyxr-Uokxeonv r/ Statin should be discussed if risk [...] Location / / Volume Laterality Blood specimen 09/01/2020 9:39 AM 021 9:49 (specimen) EST AM EST Resulting Agency Comment Spec In Lab Alejo Garnett MD CHEMISTRY ORDERABLES Performing Organization Address City/State/[place] [address] Reticulocyte Count (09/01/2020 9:39 AM EST) athologist Signature Retic Ct % 2.0 0.7 - 2.6 [facility] Retic Ct Abs 0.060 0.030 - [facility] 0.120 [facility] x10(6)/[facility] LABORATORY Immature Retic% 12.1 0.0 - 15.6 [facility] Reticulated Hgb 33.8 31.3 - JERE GARRISON 40.2 pg [facility] Specimen Anatomical Collection Method Collection Time Receive d Time (Source) Location / / Volume Laterality Blood specimen 09/01/2020 9:39 AM 021 9:49 (specimen) EST AM EST Resulting Agency Comment Spec In Lab Alejo Garnett MD HEMATOLOGY ORDERABLES Performing Organization Address City/State/ZIP Code Phon e Number [address] Tacrolimus level (09/01/2020 9:39 AM EST) P athologist Signature Tacrolimus Lvl 4.0 ng/mL [facility] Comment: Please be advised that as of 07/29/2020 th e methodology for tacrolimus testing has changed from a liquid chromatography tandem mass spectrometry platform to an electrochemiluminescence immunoassay format. Specimen Anatomical Collection Method Collection Time Receive d Time (Source) Location / / Volume Laterality Blood specimen 09/01/2020 9:39 AM 9:49 (specimen) EST AM EST Resulting Agency Comment Spec In Lab Alejo Garnett MD CHEMISTRY ORDERABLES Performing Organization Address City/[facility]/ZIP Code Phon e Number [address] Uric acid (09/01/2020 9:39 AM EST) P athologist Signature Uric Acid 7.3 3.5 - 8.5 JERE CUEVASMELI mg/dL [facility] Specimen Anatomical Collection Method Collection Time Receive d Time (Source) Location / / Volume Laterality Blood specimen 09/01/2020 9:39 AM 021 9:49 (specimen) EST AM EST Resulting Agency Comment Spec In Lab Alejo Garnett MD CHEMISTRY ORDERABLES Performing Organization Address City/[facility]/ZIP Code Phon e Number [address] Phosphorus (09/01/2020 9:39 AM EST) P athologist Signature Phosphorus 3.6 2.5 - 4.5 JERE MELI mg/dL [facility] Specimen Anatomical Collection Method Collection Time Receive d Time (Source) Location / / Volume Laterality Blood specimen 09/01/2020 9:39 AM 021 9:49 (specimen) EST AM EST Resulting Agency Comment Spec In Lab Alejo Garnett MD CHEMISTRY ORDERABLES Performing Organization Address City/State/ZIP Code Phon e Number [address] Magnesium (09/01/2020 9:39 AM EST) P athologist Signature Magnesium 0.73 0.69 - 1.07 [facility] mmol/L [facility] Specimen Anatomical Collection Method Collection Time Receive d Time (Source) Location / / Volume Laterality Blood specimen 09/01/2020 9:39 AM 021 9:49 (specimen) EST AM EST Resulting Agency Comment Spec In Lab Alejo Garnett MD CHEMISTRY ORDERABLES Performing Organization Address City/[facility]/[place] [address] (ABNORMAL) Comprehensive metabolic panel (non-fasting) (09/01/2020 9:39 AM EST) P athologist Signature Glucose Lvl 144 65 - 199 [facility] mg/dL [facility] Comment: Diabetes: >=200 mg/dL plus symp toms BUN 39 (H) 10 - 20 mg/dL [facility] Creatinine 2.54 (H) 0.80 - 1.50 mg/dL [facility] Sodium 139 135 - 145 mmol/L [facility] Potassium 4.4 3.5 - 5.0 mmol/L [facility] Comment: Please note: ??Patients with WBC >100,00 0 may have falsely elevated Potassium levels. ??For accurate Potassium quantif ication in these patients send serum separator tube (gold top) for subsequent determinations. ??Contact the Clinical Chemistry Laboratory if there are any qu estions. Chloride 109 (H) 98 - 107 mmol/L [facility] CO2 20 (L) 22 - 31 mmol/L [facility] Anion Gap 10 5 - 15 mmol/L [facility] Calcium 9.3 8.5 - 10.5 mg/dL [facility] Total Protein 7.0 6.1 - 8.0 gm/dL [facility] Albumin 3.4 3.2 - 5.2 gm/dL [facility] AST 12 0 - 39 unit/L [facility] ALT 11 0 - 55 unit/L [facility] Alk Phos 112 40 - 130 unit/L [facility] Total Bilirubin 0.2 0.2 - 1.3 mg/dL [facility] Estimated GFR 25 (L) >=60 mL/min/1.73 m?? [facility] Comment: This patient? s estimated glomerular filtration rate (eGFR) is between 25 mL/min/1.73 m2 (patients with less muscl e mass per kg body weight) and 29 mL/min/1.73 m2 (patients with more muscl e mass per kg body weight) as determined by the CKD-EPI equation. Asse ssment of eGFR is not appropriate when creatinine concentrations are rapidly ch anging. For clinical decisions where creatinine clearance will affect therapy , a 24-hour urine creatinine clearance may be advised. Assignment of CKD stage 1 ? 5 for patients with an eGFR near the transition point between stages may be based on cli nical assessment of muscle mass and symptoms in addition to eGFR. Specimen Anatomical Collection Method Collection Time Receive d Time (Source) Location / / Volume Laterality Blood specimen 09/01/2020 9:39 AM 021 9:49 (specimen) EST AM EST Resulting Agency Comment Spec In Lab Alejo Garnett MD CHEMISTRY ORDERABLES Performing Organization Address City/State/[place] [address] documented in this encounter Visit Diagnoses Diagnosis H/O kidney transplant Kidney replaced by transplant CKD (chronic kidney disease) stage 4, GF R 15-29 ml/min Chronic kidney disease, Stage IV (severe ) Type 2 diabetes mellitus with hyperglyce maki, with long-term current use of insulin documented in this encounter Care Teams Unit Assembler Relationship Specialty Start Date End Date Violetta Sanford MD PCP - General 04/02/14 [address] [place] [address] documented as of this encounter
--- OUTSIDE RECORDS SUMMARY | 2022-05-24 10:50 | XMS_ITS | Encounter Summary ---
:1955 Author Organization [facility] [place] [address] Care Team Providers Name Role Phone Violetta Sanford MD Primary Care Provider Reason for Visit Reason Onset Date Comments Labs Only 11/19/2020 Lab Tracking Encounter Details Date Type Department Care Team Description 11/19/2020 Telephone Hematology/Oncology at [facility], Labs Only (Lab Tracking) [facility] Angelica Gilbert RN [address] [place] [phone] Social History Tobacco Use Types Packs/Day [...] Telephone Encounter - Angelica Malhotra RN - 11/19/2020 1:12 PM EDT LAB TRACKING Brett Dailey [id number] 1955 DIAGNOSIS: anemia d/t CKD stage IV, h/o kidney transplant LABS: CBC every 3 weeks MEDICATIONS: Aranesp 300 mcg every 3 weeks if HGB <12 ASSESSMENT/PLAN: CBC reviewed by provider. Aranesp given SQ today. Labs again in 3 weeks, 12/10 with aranesp as needed. Results for BRETT DAILEY ( ) as of 11/19/2020 13:13 Ref. Range 10/08/2020 00:00 10/29/2020 00:00 11/19/2020 00:00 WBC Unknown 8.22 7.28 7.92 RBC Unknown 2.81 Hemoglobin Unknown 8.8 (A) 9.4 9.9 Hematocrit Unknown 27.7 29.3 31.5 MCV Unknown 96.3 Platelets Unknown 206 223 197 Neutr Abs (ANC) Unknown 4.49 4.81 documented in this encounter Plan of Treatment Upcoming Encounters Date Type Specialty Care Team Description 05/26/2022 Office Visit Otolaryngology Ricardo Panda PA [facility] [place], [place] [address] (Wo rk) 06/02/2022 Infusion Hematology and Oncology 06/16/2022 Infusion Hematology and Oncology 06/21/2022 Office Visit Neurology Tyler Rojas MD [facility] Neurology [place], [place] [phone] (Wo rk) 06/30/2022 Infusion Hematology and Oncology 07/14/2022 Infusion Hematology and Oncology 07/28/2022 Infusion Hematology and Oncology 08/11/2022 Infusion Hematology and Oncology 11/04/2022 Office Visit Rheumatology Dante Freedman PA [facility] RHEUMATOLOGY [place], [place] [address] (Wo rk) documented as of this encounter Procedures Procedure Name Priority Date/Time Associated Diagnosis Comme nts CBC (WITH DIFF) Routine 11/19/2020 Results for this procedure are in the resu lts section. documented in this encounter Results CBC (with Diff) (11/19/2020) P athologist Signature WBC 7.92 Hemoglobin 9.9 Hematocrit 31.5 MCV 96.3 Platelets 197 Neutr Abs (ANC) 4.81 Specimen (Source) Anatomical Location Collection Method / Collectio n Time Received Time / Laterality Volume Blood Carrie Trotter DRAFTER DETAIL HEMATOLOGY ORDERABLES documented in this encounter Visit Diagnoses Not on filedocumented in this encounter Care Teams Operations And Maintenance Manager Relationship Specialty Start Date End Date Violetta Sanford MD PCP - General 04/02/14 [address] [place] [address] documented as of this encounter
--- OUTSIDE RECORDS SUMMARY | 2022-05-24 10:50 | XMS_ITS | Encounter Summary ---
:1955 Author Organization [facility] [place] [address] Care Team Providers Name Role Phone Violetta Sanford MD Primary Care Provider Reason for Visit Reason Comments Injections SC aranesp Treatment/Therapy Plan Authorization (Routine) - Authorized Specialty Diagnoses / Procedures Referred By Contact Refer red To Contact Hematology and Diagnoses CKD (chronic kidney disease) stage 4, GFR 15-29 ml/min Nicky Baez Hem Onc Office Oncology Procedures ALFREDA Ramirez MD [address] [place] [address] HEMATOLOGY/ONCOLOGY [phone] [place] [address] Referral ID Status Reason Start Date Expiration Date Visits V isits Requested Authorized [id number] Authorized 10/08/2020 06/23/2022 99 99 Encounter Details Date Type Department Care Team Description 03/04/2021 Infusion Hematology Oncology at [facility] of chronic renal [facility] failure, stage 4 (severe) [address] [place] [phone] Social History Tobacco Use Types [...] Sign Reading Time Taken Comments Blood Pressure 126/54 03/04/2021 1:48 PM EDT Pulse 70 03/04/2021 1:48 PM EDT Temperature 36.8 ??C (98.2 ??F) 03/04/2021 1:48 PM EDT Respiratory Rate 18 03/04/2021 1:48 PM EDT Oxygen Saturation 99% 03/04/2021 1:48 PM EDT Inhaled Oxygen Concentration - - Weight - - Height - - Body Mass Index - - documented in this encounter Progress Notes Millie Kc RN - 03/04/2021 2:00 PM EDT Infusion Note Diagnosis: CKD anemia Treatment: Aranesp Injection Labs: 03/04/21 - H/H - 9.0/28.7. Note that on 02/11/21 his K+ was 5.0 and Cr 3.8. Lourdes Trotter APRN spokewith patient and will call nephrology to update them on worsening renal status. Aranesp 300 mcg injected in right arm. Patient aware to call clinic with any questions or concerns. Plan: Return to clinic as scheduled. documented in this encounter Plan of Treatment Upcoming Encounters Date Type Specialty Care Team Description 05/26/2022 Office Visit Otolaryngology Ricardo Panda PA [facility] Dr [place], [place] [address] (Wo rk) 06/02/2022 Infusion Hematology and Oncology 06/16/2022 Infusion Hematology and Oncology 06/21/2022 Office Visit Neurology Tyler Rojas MD [facility] Dr [place], [place] [phone] (Wo rk) 06/30/2022 Infusion Hematology and Oncology 07/14/2022 Infusion Hematology and Oncology 07/28/2022 Infusion Hematology and Oncology 08/11/2022 Infusion Hematology and Oncology 11/04/2022 Office Visit Rheumatology Dante Freedman PA [facility] RHEUMATOLOGY [place] [address] (Wo rk) documented as of this encounter Visit Diagnoses Diagnosis Anemia of chronic renal failure, stage 4 (severe) documented in this encounter Administered Medications Inactive Administered Medications - up to 3 most recent administrations Medication Order MAR Action Action Date Dose Rate Site darbepoetin cristy-polysorbate Given 03/04/2021 2:20 PM EDT 300 mc g Right Arm (Aranesp) (300 mcg/0.6 mL) injection 300 mcg 300 mcg, Subcutaneous, ONCE, 1 dose, On Tue03/04/21 at 1415, Hold parameters for MDS and chemotherapy-induced anemia: Hemoglobin greater than or equal to 10 gm/dL Hematocrit greater than or equal to 30% Hold parameters for CKD: Hemoglobin greater than or equal to 12 gm/dL Hematocrit greater than or equal to 36%, Routine, What is the indication of use? Chronic Kidney Disease (CKD) documented in this encounter Care Teams Geothermal Installer Relationship Specialty Start Date End Date Violetta Sanford MD PCP - General 04/02/14 [address] [place] [address] documented as of this encounter
--- OUTSIDE RECORDS SUMMARY | 2022-05-24 10:50 | XMS_ITS | Encounter Summary ---
:1955 Author Organization [facility] [place] [address] Care Team Providers Name Role Phone Violetta Sanford MD Primary Care Provider Encounter Details Date Type Department Care Team Description 11/10/2020 Orders Only Endocrinology at [facility] Monica Contreras Type 2 diabetes [facility] [place] [phone] [facility], with [phone] CENTER long-term current use ENDOCRINOLOGY of insulin [place], [place] [address] Social History Tobacco Use Types [...] Office Visit Otolaryngology Ricardo Panda PA [facility] er [address] [place], [place] [address] (Wo rk) 06/02/2022 Infusion Hematology and Oncology 06/16/2022 Infusion Hematology and Oncology 06/21/2022 Office Visit Neurology Tyler Rojas MD [facility] er Neurology [place], [place] [phone] (Wo rk) 06/30/2022 Infusion Hematology and Oncology 07/14/2022 Infusion Hematology and Oncology 07/28/2022 Infusion Hematology and Oncology 08/11/2022 Infusion Hematology and Oncology 11/04/2022 Office Visit Rheumatology Dante Freedman PA [facility] RHEUMATOLOGY [place], [place] [address] (Wo rk) documented as of this encounter Visit Diagnoses Diagnosis Type 2 diabetes mellitus with hyperglyce maki, with long-term current use of insulin documented in this encounter Care Teams Pressure Testing Technician Relationship Specialty Start Date End Date Violetta Sanford MD PCP - General 04/02/14 [facility] [address] [facility] [address] [place] [address] documented as of this encounter
--- OUTSIDE RECORDS SUMMARY | 2022-05-24 10:50 | XMS_ITS | Encounter Summary ---
:1955 Author Organization [facility] [place] [address] Care Team Providers Name Role Phone Violetta Sanford MD Primary Care Provider Reason for Visit Reason Onset Date Comments Labs Only 03/04/2021 Lab Tracking Encounter Details Date Type Department Care Team Description 03/04/2021 Telephone Hematology Oncology at [facility], Labs Only (Lab Tracking) [facility] Angelica Gilbert RN [address] [place] [phone] Social History Tobacco Use Types Packs/Day [...] Telephone Encounter - Angelica Malhotra RN - 03/04/2021 1:13 PM EDT LAB TRACKING Brett Dailey [id number] 1955 DIAGNOSIS: anemia d/t CKD stage IV, h/o kidney transplant LABS: CBC every 3 weeks MEDICATIONS: Aranesp 300 mcg every 3 weeks if HGB <12 ASSESSMENT/PLAN: Lab sent to Carrie Trotter APRN for review. Will continue every 3 week CBC and Aranesp. Will go to lab at [facility] 1 hr prior to infusion appts here for CBC. He prefers afternoon appts. Results for BRETT DAILEY ( ) as of 03/04/2021 13:14 Ref. Range 01/21/2021 00:00 02/11/2021 00:00 03/04/2021 00:00 WBC Unknown 7.13 7.81 7.64 Hemoglobin Unknown 9.6 8.9 9.0 Hematocrit Unknown 31.3 28.2 28.7 MCV Unknown 94.6 97.0 Platelets Unknown 212 210 219 Neutr Abs (ANC) Unknown 4.12 4.79 4.48 Iron Unknown 56 TIBC Unknown 207 Ferritin Unknown 134 Transferrin Unknown 27 documented in this encounter Plan of Treatment Upcoming Encounters Date Type Specialty Care Team Description 05/26/2022 Office Visit Otolaryngology Ricardo Panda PA [facility] [place], [place] [address] (Wo rk) 06/02/2022 Infusion Hematology and Oncology 06/16/2022 Infusion Hematology and Oncology 06/21/2022 Office Visit Neurology Tyler Rojas MD [facility] Neurology [place], [place] [phone] (Wo rk) 06/30/2022 Infusion Hematology and Oncology 07/14/2022 Infusion Hematology and Oncology 07/28/2022 Infusion Hematology and Oncology 08/11/2022 Infusion Hematology and Oncology 11/04/2022 Office Visit Rheumatology Dante Freedman PA [facility] RHEUMATOLOGY [place], [place] [address] (Wo rk) documented as of this encounter Procedures Procedure Name Priority Date/Time Associated Diagnosis Comme nts CBC (WITH DIFF) Routine 03/04/2021 Results for this procedure are in the resu lts section. documented in this encounter Results CBC (with Diff) (03/04/2021) P athologist Signature WBC 7.64 Hemoglobin 9.0 Hematocrit 28.7 MCV 97.0 Platelets 219 Neutr Abs (ANC) 4.48 Specimen (Source) Anatomical Location Collection Method / Collectio n Time Received Time / Laterality Volume Blood Historical Provider HEMATOLOGY ORDERABLES documented in this encounter Visit Diagnoses Not on filedocumented in this encounter Care Teams Dining Room Host Relationship Specialty Start Date End Date Viloetta Sanford MD PCP - General 04/02/14 [address] [place] [address] documented as of this encounter
--- OUTSIDE RECORDS SUMMARY | 2022-05-24 10:50 | XMS_ITS | Encounter Summary ---
:1955 Author Organization [facility] [place] [address] Care Team Providers Name Role Phone Violetta Sanford MD Primary Care Provider Reason for Visit Reason Onset Date Comments Labs Only 12/31/2020 Lab Tracking Encounter Details Date Type Department Care Team Description 12/31/2020 Telephone Hematology/Oncology at [facility], Labs Only (Lab Tracking) [facility] Angelica Gilbert RN [address] [place] [phone] Social History Tobacco Use Types Packs/Day [...] Telephone Encounter - Angelica Malhotra RN - 12/31/2020 11:47 AM EDT LAB TRACKING Brett Dailey [id number] 1955 DIAGNOSIS: anemia d/t CKD stage IV, h/o kidney transplant LABS: CBC every 3 weeks MEDICATIONS: Aranesp 300 mcg every 3 weeks if HGB <12 ASSESSMENT/PLAN: Pt seen by Carrie Kaur APRN today. Will continue every 3 week CBC and Aranesp. Willgo to lab at [facility] 1 hr prior to infusion appts here for CBC. He prefers afternoon appts. Pt is in agreement with plan. Results for BRETT DAILEY ( ) as of 12/31/2020 11:47 Ref. Range 11/19/2020 00:00 12/06/2020 00:00 12/10/2020 00:00 12/31/2020 00:00 WBC Unknown 7.92 6.83 8.00 Hemoglobin Unknown 9.9 9.7 9.8 Hematocrit Unknown 31.5 30.4 30.8 MCV Unknown 96.3 92.7 95.1 Platelets Unknown 197 192 194 Neutr Abs (ANC) Unknown 4.81 4.23 5.21 Sodium Unknown 139 Potassium Unknown 5.0 BUN Unknown 48 Creatinine Unknown 3.2 Iron Unknown 62 42 TIBC Unknown 184 180 Ferritin Unknown 112 117 Transferrin Unknown 23 documented in this encounter Plan of Treatment Upcoming Encounters Date Type Specialty Care Team Description 05/26/2022 Office Visit Otolaryngology Ricardo Panda PA [facility] [address] [place], [place] [address] (Wo rk) 06/02/2022 Infusion Hematology and Oncology 06/16/2022 Infusion Hematology and Oncology 06/21/2022 Office Visit Neurology Tyler Rojas MD [facility] Neurology [place], [place] [phone] (Wo rk) 06/30/2022 Infusion Hematology and Oncology 07/14/2022 Infusion Hematology and Oncology 07/28/2022 Infusion Hematology and Oncology 08/11/2022 Infusion Hematology and Oncology 11/04/2022 Office Visit Rheumatology Dante Freedman PA [facility] RHEUMATOLOGY [place], [place] [address] (Wo rk) documented as of this encounter Procedures Procedure Name Priority Date/Time Associated Diagnosis Comme nts IRON AND TIBC Routine 12/31/2020 Results for th is procedure are in the resu lts section. CBC (WITH DIFF) Routine 12/31/2020 Results for this procedure are in the resu lts section. documented in this encounter Results Iron and TIBC (12/31/2020) P athologist Signature Iron 42 TIBC 180 Transferrin 23 Ferritin 117 Specimen (Source) Anatomical Location Collection Method / Collectio n Time Received Time / Laterality Volume Blood Carrie Giovana Trotter [facility] NURSE PRACTITIONER CHEMISTRY ORDERABLES CBC (with Diff) (12/31/2020) P athologist Signature WBC 8.00 Hemoglobin 9.8 Hematocrit 30.8 MCV 95.1 Platelets 194 Neutr Abs (ANC) 5.21 Specimen (Source) Anatomical Location Collection Method / Collectio n Time Received Time / Laterality Volume Blood Carrie Giovana Trotter [facility] NURSE PRACTITIONER HEMATOLOGY ORDERABLES documented in this encounter Visit Diagnoses Not on filedocumented in this encounter Care Teams Ventilator Specialist Relationship Specialty Start Date End Date Violetta Sanford MD PCP - General 04/02/14 [address] [place] [address] documented as of this encounter
--- OUTSIDE RECORDS SUMMARY | 2022-05-24 10:50 | XMS_ITS | Encounter Summary ---
:1955 Author Organization [facility] Address [facility] [place] [address] Care Team Providers Name Role Phone Violetta Sanford MD Primary Care Provider Reason for Visit Reason Onset Date Comments Medication Refill 02/16/2021 Encounter Details Date Type Department Care Team Description 02/16/2021 Refill Cardiology at [facility] [place] [place] J Luis Quispe MD Medication Refill [facility] [place] [phone] CARDIOLOGY DEPT. [phone] [place] [id number] (Wo rk) Social History Tobacco Use Types [...] this encounter Miscellaneous Notes Telephone Encounter - Maria L Paz RN - 02/16/2021 12:07 PM EDT Received Faxed request from [facility] on behalf of patient requesting refill of hydralazine 100 mg - one tablet TID . Patient would like a prescription for 90 day supply with refills. Reviewed the office note from patient's 11/25/[address] Quispe. Rx prepared as requested and forwarded to provider for their approval. Maria L Paz RN, BSN Ambulatory Cardiology Department documented in this encounter Plan of Treatment Upcoming Encounters Date Type Specialty Care Team Description 05/26/2022 Office Visit Otolaryngology Ricardo Panda PA [facility] [place], [place] [address] (Wo rk) 06/02/2022 Infusion Hematology and Oncology 06/16/2022 Infusion Hematology and Oncology 06/21/2022 Office Visit Neurology Tyler Rojas MD [facility] Neurology [place], [place] [phone] (Wo rk) 06/30/2022 Infusion Hematology and Oncology 07/14/2022 Infusion Hematology and Oncology 07/28/2022 Infusion Hematology and Oncology 08/11/2022 Infusion Hematology and Oncology 11/04/2022 Office Visit Rheumatology Dante Freedman PA [facility] RHEUMATOLOGY [place], [place] [address] (Wo rk) documented as of this encounter Visit Diagnoses Diagnosis Chronic atrial fibrillation Atrial fibrillation documented in this encounter Care Teams Director Religious Education Relationship Specialty Start Date End Date Violetta Sanford MD PCP - General 04/02/14 [address] [place] [address] documented as of this encounter
--- OUTSIDE RECORDS SUMMARY | 2022-05-24 10:50 | XMS_ITS | Encounter Summary ---
:1955 Author Organization [facility] [place] [address] Care Team Providers Name Role Phone Violetta Sanford MD Primary Care Provider Reason for Visit Reason Comments Injections Aranesp Treatment/Therapy Plan Authorization (Routine) - Authorized Specialty Diagnoses / Procedures Referred By Contact Refer red To Contact Hematology and Diagnoses CKD (chronic kidney disease) stage 4, GFR 15-29 ml/min Nicky Baez Hem Onc Office Oncology Procedures ALFREDA Ramirez MD [address] [place] [address] HEMATOLOGY/ONCOLOGY [phone] [place] [address] Referral ID Status Reason Start Date Expiration Date Visits V isits Requested Authorized [id number] Authorized 10/08/2020 06/23/2022 99 99 Encounter Details Date Type Department Care Team Description 02/11/2021 Infusion Hematology Oncology at [facility] of chronic renal [facility] failure, stage 4 (severe) [address] [place] [phone] Social History Tobacco Use Types [...] Sign Reading Time Taken Comments Blood Pressure 133/48 02/11/2021 1:56 PM EDT Pulse 68 02/11/2021 1:56 PM EDT Temperature 36.6 ??C (97.8 ??F) 02/11/2021 1:56 PM EDT Respiratory Rate 18 02/11/2021 1:56 PM EDT Oxygen Saturation 98% 02/11/2021 1:56 PM EDT Inhaled Oxygen Concentration - - Weight - - Height - - Body Mass Index - - documented in this encounter Progress Notes Lindsay Lerma RN - 02/11/2021 2:00 PM EDT INFUSION THERAPY ADMINISTRATION NOTES DIAGNOSIS: Anemia due to CKD Stage IV, history of kidney transplant REASON FOR VISIT: Aranesp Injection SUBJECTIVE Mr. Torres is here for his Aranesp injection. He offers no complaints. OBJECTIVE LAB DATA: Hgb 8.9, Hct 28.2 Pre administration: Orders independently verified for drug name, route, and dosage by uSki Lerma RN and pharmacist on-site. REACTIONS (DESCRIPTION, TIME, [...] Otolaryngology Ricardo Panda PA [facility] [address] [place] [address] (Oscar escobedo) 06/02/2022 Infusion Hematology and Oncology 06/16/2022 Infusion Hematology and Oncology 06/21/2022 Office Visit Neurology Tyler Rojas MD [facility] Dr [address]i [place] [address]22 (Wo rk) 06/30/2022 Infusion Hematology and Oncology 07/14/2022 Infusion Hematology and Oncology 07/28/2022 Infusion Hematology and Oncology 08/11/2022 Infusion Hematology and Oncology 11/04/2022 Office Visit Rheumatology Dante Freedman PA [facility] [address] [place] [address] (Wo rk) documented as of this encounter Visit Diagnoses Diagnosis Anemia of chronic renal failure, stage 4 (severe) documented in this encounter Administered Medications Inactive Administered Medications - up to 3 most recent administrations Medication Order MAR Action Action Date Dose Rate Site darbepoetin cristy-polysorbate Given 02/11/2021 2:06 PM EDT 300 mc g Right Arm (Aranesp) (300 mcg/0.6 mL) injection 300 mcg 300 mcg, Subcutaneous, ONCE, 1 dose, On Tue02/11/21 at 1415, Hold parameters for MDS and chemotherapy-induced anemia: Hemoglobin greater than or equal to 10 gm/dL Hematocrit greater than or equal to 30% Hold parameters for CKD: Hemoglobin greater than or equal to 12 gm/dL Hematocrit greater than or equal to 36%, Routine, What is the indication of use? Chronic Kidney Disease (CKD) documented in this encounter Care Teams Patented Hogshead Assembler Relationship Specialty Start Date End Date Violetta Sanford MD PCP - General 04/02/14 [address] [place] [address] documented as of this encounter
--- OUTSIDE RECORDS SUMMARY | 2022-05-24 10:50 | XMS_ITS | Encounter Summary ---
:1955 Author Organization [facility] [place] [address] Care Team Providers Name Role Phone Violetta Sanford MD Primary Care Provider Reason for Visit Reason Onset Date Comments Medication Refill 01/13/2021 Encounter Details Date Type Department Care Team Description 01/13/2021 Refill Endocrinology at [facility] Robert Viveros, [place] [phone] Social History Tobacco Use Types Packs/Day Years [...] Ricardo Panda PA [facility] [address] [place] [address] (Wo rk) 06/02/2022 Infusion Hematology and Oncology 06/16/2022 Infusion Hematology and Oncology 06/21/2022 Office Visit Neurology Tyler Rojas MD [facility] Dr [address] [place] [phone] (Wo rk) 06/30/2022 Infusion Hematology and Oncology 07/14/2022 Infusion Hematology and Oncology 07/28/2022 Infusion Hematology and Oncology 08/11/2022 Infusion Hematology and Oncology 11/04/2022 Office Visit Rheumatology Dante Freedman PA [facility] RHEUMATOLOGY [place], [place] [address] (Wo rk) documented as of this encounter Visit Diagnoses Not on filedocumented in this encounter Care Teams Variety Performer Relationship Specialty Start Date End Date Violetta Sanford MD PCP - General 04/02/14 [address] [place] [address] documented as of this encounter
--- OUTSIDE RECORDS SUMMARY | 2022-05-24 10:50 | XMS_ITS | Encounter Summary ---
:1955 Author Organization [facility] [place] [address] Care Team Providers Name Role Phone Violetta Sanford MD Primary Care Provider Reason for Referral Consultation (Routine) - Closed Specialty Diagnoses / Procedures Referred By Contact Refer red To Contact Hematology and Oncology Diagnoses CKD (chronic kidney disease) stage 4, GFR 15-29 ml/min Anemia of chronic renal failure, stage 4 (severe) Alejo Garnett Hem Onc Office MD Thang [address] [place] [phone] [place] [address] Referral ID Status Reason Start Date Expiration Date Visits V isits Requested Authorized [id number] Closed Consult, 09/26/2020 09/26/2021 26 26 Test & Treat Encounter Details Date Type Department Care Team Description 09/26/2020 Telephone Solid Organ Transplant at Piter [facility] [phone] Social History Tobacco Use Types Packs/Day [...] Telephone Encounter - Aria Khan RN - 09/26/2020 1:29 PM EST At the request of Dr. Garnett I contacted the pt to discuss receiving procrit injections locally for his anemia. I sent orders to both his PCP and the [facility] Heme/Onc infusion center hoping one of these offices will be able to accommodate every other week injections for him. I let him know that either his PCP or [facility] Heme/Onc should be reaching out to him to set up the injections. documented in this encounter Plan of Treatment Upcoming Encounters Date Type Specialty Care Team Description 05/26/2022 Office Visit Otolaryngology Ricardo Panda PA [facility] er [place] [address] (Wo rk) 06/02/2022 Infusion Hematology and Oncology 06/16/2022 Infusion Hematology and Oncology 06/21/2022 Office Visit Neurology Tyler Rojas MD [facility] Neurology [place] [phone] (Wo rk) 06/30/2022 Infusion Hematology and Oncology 07/14/2022 Infusion Hematology and Oncology 07/28/2022 Infusion Hematology and Oncology 08/11/2022 Infusion Hematology and Oncology 11/04/2022 Office Visit Rheumatology Dante Freedman PA [facility] RHEUMATOLOGY [place] [address] (Wo rk) Scheduled Referrals Name Type Priority Associated Order Schedule Diagnoses Referral to Outpatient Referral Routine CKD (chronic kidney O rdered: Hematology and disease) stage 4, 09/27/19 21 Oncology GFR 15-29 ml/min Anemia of chronic renal failure, stage 4 (severe) documented as of this encounter Visit Diagnoses Diagnosis CKD (chronic kidney disease) stage 4, GF R 15-29 ml/min Chronic kidney disease, Stage IV (severe ) Anemia of chronic renal failure, stage 4 (severe) documented in this encounter Care Teams Coat Joiner Lockstitch Relationship Specialty Start Date End Date Violetta Sanford MD PCP - General 04/02/14 [address] [place] [address] documented as of this encounter
--- OUTSIDE RECORDS SUMMARY | 2022-05-24 10:50 | XMS_ITS | Encounter Summary ---
:1955 Author Organization [facility] [place] [address] Care Team Providers Name Role Phone Violetta Sanford MD Primary Care Provider Reason for Visit Reason Comments Injections Aranesp injection Treatment/Therapy Plan Authorization (Routine) - Authorized Specialty Diagnoses / Procedures Referred By Contact Refer red To Contact Hematology and Diagnoses CKD (chronic kidney disease) stage 4, GFR 15-29 ml/min Nicky Baez Hem Onc Office Oncology Procedures ALFREDA Ramirez MD [address] [place] [address] HEMATOLOGY/ONCOLOGY [phone] [place] [address] Referral ID Status Reason Start Date Expiration Date Visits V isits Requested Authorized [id number] Authorized 10/08/2020 06/23/2022 99 99 Encounter Details Date Type Department Care Team Description 10/29/2020 Infusion Hematology Oncology at [facility] of chronic renal [facility] failure, stage 4 (severe) [address] [place] [phone] Social History Tobacco Use Types [...] Sign Reading Time Taken Comments Blood Pressure 140/55 10/29/2020 12:50 PM EDT Pulse 64 10/29/2020 12:50 PM EDT Temperature 36.9 ??C (98.4 ??F) 10/29/2020 12:50 PM EDT Respiratory Rate 16 10/29/2020 12:50 PM EDT Oxygen Saturation 98% 10/29/2020 12:50 PM EDT Inhaled Oxygen Concentration - - Weight 131.5 kg (290 lb) 10/29/2020 12:50 PM EDT Height - - Body Mass Index 34.84 10/28/2020 2:09 PM EDT documented in this encounter Progress Notes Millie Kc RN - 10/29/2020 1:00 PM EDT Infusion Note Diagnosis: CKD anemia Treatment: Aranesp Injection Labs: 10/29/20 - H/H - 9.4/29.3 Aranesp 300 mcg injected in right arm. Patient aware to call clinic with any questions or concerns. Plan: Return to clinic as scheduled. documented in this encounter Plan of Treatment Upcoming Encounters Date Type Specialty Care Team Description 05/26/2022 Office Visit Otolaryngology Ricardo Panda PA [facility] [address] [place] [address] (Wo gregg) 06/02/2022 Infusion Hematology and Oncology 06/16/2022 Infusion Hematology and Oncology 06/21/2022 Office Visit Neurology Tyler Rojas MD [facility] Dr [address] [place] [phone] (Wo rk) 06/30/2022 Infusion Hematology and Oncology 07/14/2022 Infusion Hematology and Oncology 07/28/2022 Infusion Hematology and Oncology 08/11/2022 Infusion Hematology and Oncology 11/04/2022 Office Visit Rheumatology Dante Freedman PA [facility] RHEUMATOLOGY [place] [address] (Wo rk) documented as of this encounter Visit Diagnoses Diagnosis Anemia of chronic renal failure, stage 4 (severe) documented in this encounter Administered Medications Inactive Administered Medications - up to 3 most recent administrations Medication Order MAR Action Action Date Dose Rate Site darbepoetin cristy-polysorbate Given 10/29/2020 1:02 PM EDT 300 mc g Right Arm (Aranesp) (300 mcg/0.6 mL) injection 300 mcg 300 mcg, Subcutaneous, ONCE, 1 dose, On Tue10/29/20 at 1315, Hold parameters for MDS and chemotherapy-induced anemia: Hemoglobin greater than or equal to 10 gm/dL Hematocrit greater than or equal to 30% Hold parameters for CKD: Hemoglobin greater than or equal to 12 gm/dL Hematocrit greater than or equal to 36%, Routine, What is the indication of use? Chronic Kidney Disease (CKD) documented in this encounter Care Teams Two Way Radio Technician Relationship Specialty Start Date End Date Violetta Sanford MD PCP - General 04/02/14 [address] [place] [address] documented as of this encounter
--- OUTSIDE RECORDS SUMMARY | 2022-05-24 10:50 | XMS_ITS | Encounter Summary ---
:1955 Author Organization [facility] [address] Care Team Providers Name Role Phone Violetta Sanford MD Primary Care Provider Encounter Details Date Type Department Care Team Description 11/17/2020 Telephone Cardiology at [facility] Rayne Shukla LNA [facility] [place] [phone] Social History Tobacco Use Types Packs/Day Years [...] 05/26/2022 Office Visit Otolaryngology Ricardo Panda PA [facility] [address] [place] [address] (Wo rk) 06/02/2022 Infusion Hematology and Oncology 06/16/2022 Infusion Hematology and Oncology 06/21/2022 Office Visit Neurology Tyler Rojas MD [facility] Dr [address]i [place] [address]22 (Wo rk) 06/30/2022 Infusion Hematology and Oncology 07/14/2022 Infusion Hematology and Oncology 07/28/2022 Infusion Hematology and Oncology 08/11/2022 Infusion Hematology and Oncology 11/04/2022 Office Visit Rheumatology Dante Freedman PA [facility] RHEUMATOLOGY [place], [place] [address] (Wo rk) documented as of this encounter Visit Diagnoses Not on filedocumented in this encounter Care Teams Carton Maker Relationship Specialty Start Date End Date Violetta Sanford MD PCP - General 04/02/14 [address] [place] [address] documented as of this encounter
--- OUTSIDE RECORDS SUMMARY | 2022-05-24 10:50 | XMS_ITS | Encounter Summary ---
:1955 Author Organization [facility] [address] Care Team Providers Name Role Phone Violetta Sanford MD Primary Care Provider Reason for Visit Reason Onset Date Comments Labs Only 01/21/2021 Lab tracking Encounter Details Date Type Department Care Team Description 01/21/2021 Telephone Hematology Oncology at Lindsay Lerma, Labs Only (Lab [facility] RN tracking) [address] [place] [phone] Social History Tobacco Use Types Packs/Day [...] this encounter Miscellaneous Notes Telephone Encounter - Lindsay Lerma, RN - 01/21/2021 1:54 PM EDT LAB TRACKING Brett Dailey [id number] 1955 DIAGNOSIS: anemia d/t CKD stage IV, h/o kidney transplant LABS: CBC every 3 weeks MEDICATIONS: Aranesp 300 mcg every 3 weeks if HGB <12 ASSESSMENT/PLAN: Lab sent to Dr. Baez and YARD ENGINEER for review. Will continue every 3 week CBC and Aranesp. Will go to lab at [facility] 1 hr prior to infusion appts here for CBC. He prefers afternoon appts. Pt is in agreement with plan. Spoke to lab at [facility] and asked that they stop drawing IRON studies eachtime. We will send new orders when that is needed. Results for BRETT DAILEY ( ) as of 01/21/2021 13:59 12/10/2020 00:00 12/31/2020 00:00 01/21/2021 00:00 WBC 6.83 8.00 7.13 Hemoglobin 9.7 9.8 9.6 Hematocrit 30.4 30.8 31.3 MCV 92.7 95.1 Platelets 192 194 212 Neutr Abs (ANC) 4.23 5.21 4.12 Iron 62 42 56 TIBC 184 180 207 Ferritin 112 117 134 Transferrin 23 27 documented in this encounter Plan of Treatment Upcoming Encounters Date Type Specialty Care Team Description 05/26/2022 Office Visit Otolaryngology Ricardo Panda PA [facility] [address] [place] [address] (Wo rk) 06/02/2022 Infusion Hematology and Oncology 06/16/2022 Infusion Hematology and Oncology 06/21/2022 Office Visit Neurology Tyler Rojas MD [facility] Neurology [place], [place] [phone] (Wo rk) 06/30/2022 Infusion Hematology and Oncology 07/14/2022 Infusion Hematology and Oncology 07/28/2022 Infusion Hematology and Oncology 08/11/2022 Infusion Hematology and Oncology 11/04/2022 Office Visit Rheumatology Dante Freedman PA [facility] ER [place]ATOLOGY [place], [place] [address] (Wo rk) documented as of this encounter Procedures Procedure Name Priority Date/Time Associated Diagnosis Comme nts IRON AND TIBC Routine 01/21/2021 Results for th is procedure are in the resu lts section. CBC (WITH DIFF) Routine 01/21/2021 Results for this procedure are in the resu lts section. FERRITIN Routine 01/21/2021 Results for thi s procedure are in the resu lts section. documented in this encounter Results Ferritin (01/21/2021) P athologist Signature Ferritin 134 Specimen (Source) Anatomical Location Collection Method / Collectio n Time Received Time / Laterality Volume Blood 01/21/2021 Nicky Baez MD CHEMISTRY ORDERABLES Iron and TIBC (01/21/2021) P athologist Signature Iron 56 TIBC 207 Transferrin 27 Specimen (Source) Anatomical Location Collection Method / Collectio n Time Received Time / Laterality Volume Blood 01/21/2021 Nicky Baez MD CHEMISTRY ORDERABLES CBC (with Diff) (01/21/2021) P athologist Signature WBC 7.13 Hemoglobin 9.6 Hematocrit 31.3 Platelets 212 Neutr Abs (ANC) 4.12 Specimen (Source) Anatomical Location Collection Method / Collectio n Time Received Time / Laterality Volume Blood 01/21/2021 Nicky Baez MD HEMATOLOGY ORDERABLES documented in this encounter Visit Diagnoses Not on filedocumented in this encounter Care Teams Surtass Analyst Relationship Specialty Start Date End Date Violetta Sanford MD PCP - General 04/02/14 [address] [place] [address] documented as of this encounter
--- OUTSIDE RECORDS SUMMARY | 2022-05-24 10:50 | XMS_ITS | Encounter Summary ---
:1955 Author Organization [facility] [place] [address] Care Team Providers Name Role Phone Violetta Sanford MD Primary Care Provider Encounter Details Date Type Department Care Team Description 11/25/2020 TH Visit Cardiology at [facility] J Luis Quispe PAF (paroxysmal (Tele[facility]) [facility] atrial fibrillation) [place] [address] CARDIOLOGY DEPT. [phone] [place], [place] [address] (Wo rk) Social History Tobacco [...] documented as of this encounter Progress Notes J Luis Quispe MD - 11/25/2020 11:20 AM EDT Images from the original note were not included. Formerly [facility] [place] [phone] CARDIOLOGY/ VASCULAR OUTPATIENT NOTE Brett Sanford MD TELEHEALTH VISIT : #history of PAF in the setting of PNA/hospital #HTN ?? Other martínez issues: #s/p kidney transplant 2007 #IDDM #double amputation, in wheelchair ?? 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 ??He was in NSR in July. He has no significant history of CAD. ??He has had a prior stress echo that was normal in 2014. ??He denies any history of RI. ?? Apparently during a hospitalization for PNA and hyperkalemia, he was reported to have had some paroxysmal AF. ??He is essentially asymptomatic with this - although he does state that occasionally he has some palpitations. ??His resting pulse today was around 90 bpm. ? He is at risk for falls and hitting his head and the decision to add full anticoagulation is not made easily. A zio was obtained that demonstrated no atrial fibrillation. Would therefore continue to avoid anticoagulation at this point. ?? It is noted that he is on low dose metoprolol succinate and this can lower his BP and HR (with some potential to decrease PAF episodes). ?? His SBP remains in the mid to high 150s. ?? BP meds include: -amlodipine 10 mg -hydralazine 75 mg PO TID (takes a 50mg and 25 mg tablet), increased from 50 TID a few days ago -metoprolol sux 25 ?? If his SBP remains consistently > 140, would recommend the following changes: 1. Increase the hydralazine to 100 mg po TID (change to 100 mg tablet). 2. Increase the metoprolol to 50 mg and possibly 100 if needed. UPDATE / SUBJECTIVE: I spoke with Mr Dailey by phone today: Home reported vitals: 143/58, 143/63, 122/64, 125/51; pulse 70s A1C down to 6, lost 33 lbs (277 lbs, from 310) with mostly diet Patient lives in [facility] with his . Patient is in a wheelchair (double amputee). Does a lot with his arms. He has been working on remodeling a room where his mother was living (she recently). They have a pellet stove - and helifts the 40 lbs bags without any cardiac symptoms. No chest pain. No significant shortness of breath. No PND/orthopnea. Denies palpitations or irregular pulse. He is 15 years s/p kidney transplant and the Cr 2.5 (GFR 25). Meds: Current Outpatient Medications Medication Sig Note Dispense Refill ??? Gvoke PFS 1-Pack Syringe 1 mg/0.2 mL Syringe Inject 1 each subcutaneously as needed (as needed for severe hypoglycemia). Repeat with new unit if no response after 15 minutes. (Patient not taking: Reported on 11/19/2020) 2 Syringe 11 ??? hydrALAZINE (Apresoline) 100 mg Tablet Take 1 tablet by mouth 3 times daily. 90 tablet 1 ??? darbepoetin cristy in polysorbat 10 mcg/0.4 [...] D/C date 03/11/2008 120 capsule 11 ??? gabapentin (Neurontin) 100 mg Capsule Take 2 capsules by mouth 3 times daily for 89 days. Pt canincrease dose by 100 mg each dose until neuropathic pain is managed. Max dose 1800 mg daily (Patientnot taking: Reported on 11/19/2020) 180 capsule 3 ??? losartan (Cozaar) 25 mg Tablet Take 1 tablet by mouth daily. 90 tablet 3 ??? FreeStyle Gilberto 14 Day Sensor Kit 6 TIMES DAILY 6 kit 3 ??? guaiFENesin 200 mg Tablet Take 400 mg by mouth every 4 hours as needed for Congestion. ??? Blood-Glucose Sensor (Dexcom G6 Sensor) Device by [facility].(Non-Drug; Combo Route) route. Sensor, english drawer andtransmitter ??? calciTRIoL (Rocaltrol) 0.5 mcg Capsule Take 1 capsule by mouth daily. 90 capsule 3 ??? metoprolol succinate XL (Toprol-XL) 50 mg Tablet Sustained Release 24 hr Take 1 tablet by mouth daily. 90 tablet 1 ??? amLODIPine (Norvasc) 10 mg Tablet Take 0.5 tablets by mouth daily. 90 tablet 3 ??? fluticasone propionate (FLONASE) 50 mcg/actuation [place], Suspension INSTILL 2 SPRAYS INTO EACH NOSTRIL ONCE A DAY NEEDED ??? triamcinolone (NASACORT or NASACORT OTC) 55 mcg Aerosol, [place] 2 sprays by Nasal route daily. (Patient not taking: Reported on 10/28/2020) 1 Inhaler 12 ??? albuterol (PROVENTIL) 2.5 [...] tablet at night and increase as directed 05/08/2020: Half tab in am half tab in pm 120 tablet 3 ??? LEVEMIR FLEXTOUCH U-100 INSULN Insulin Pen Inject 50-80 Units subcutaneously 2 times daily. ICD 10 Code: E11.40 05/08/2020: 60inits 2x daily 45 mL 11 ??? cholecalciferol, Vitamin D3, 2,000 unit Tablet Take 1 tablet by mouth daily. 90 tablet 3 ??? liraglutide (VICTOZA 3-FAZAL) 0.6 mg/0.1 mL (18 mg/3 mL) Pen Injector Inject 1.2 mg subcutaneouslydaily. 12/13/2017: 1.8mg daily 6 mL 11 ??? insulin needles, disposable, 29 gauge x 1/2 Needle 1 Device by [facility]Non- Drug; Combo Route) route 3 times daily. [...] lungs daily. 1 ??? Miscellaneous Medical Supply [facility] 4 Devices by [facility].(Non-Drug; Combo Route) route daily. Rubber sheath for leg prosthesis (2 pairs) 4 each PRN ??? VENTOLIN HFA 90 mcg/actuation HFA Aerosol Inhaler Inhale 2 puffs into the lungs as needed. 0 ??? Insulin Lispro (HUMALOG) 100 unit/mL Insulin Pen Inject 50-54 Units subcutaneously 4 times daily. ??? BD INSULIN PEN NEEDLE UF ORIG 29 gauge x 1/2 Needle 0 ??? aspirin 81 mg EC tablet Take 81 mg by mouth daily. ??? montelukast (SINGULAIR) 10 mg tablet Take 10 mg by mouth daily. Results for BRETT DAILEY ( ) as of 11/25/2020 11:27 Ref. Range 11/19/2020 00:00 WBC Unknown 7.92 Hemoglobin Unknown 9.9 Hematocrit Unknown 31.5 MCV Unknown 96.3 Platelets Unknown 197 Results for BRETT DAILEY ( ) as of 11/25/2020 11:27 Ref. Range 09/01/2020 09:39 10/08/2020 00:00 10/28/2020 11:50 Sodium Latest Ref Range: 135 - 145 [...] Range: 4.3 - 5.6 % 6.5 (H) 6.0 (H) Est Avg Gluc Latest Units: mg/dL 140 125 Results for BRETT DAILEY ( ) as of 11/25/2020 11:27 Ref. Range 06/26/2019 08:02 07/09/2019 00:00 07/16/2019 00:00 09/01/2020 09:39 Chol, Total Latest Units: mg/dL 88 103 102 92 HDL Latest Units: mg/dL 23 Chol/HDL Ratio Latest Units: ratio 3.8 Triglycerides Latest Units: mg/dL 222 LDL Cholesterol Latest Units: mg/dL 21 ASSESSMENT / PLAN: #history of PAF in the setting of [facility]/hospital #HTN #s/p kidney transplant 2007 #IDDM #double amputation, in wheelchair ?? 65 year old male with diabetes and multiple complications including: bilateral BKA, ESRD s/p kidney transplant in 2007 referred to cardiology clinic for group home management of PAF. ??He was in NSR in July. He has no significant history of CAD. ??He has had a prior stress echo that was normal in 2014. ??He denies any history of RI. Recommendations: -current GDMT includes: ASA, met sux 50, losartan 25, atorva 20; -additional BP meds: hydral 100 tid, amlodipine 10, -stable from cardiac perspective -no changes to cardiac meds at this time. Follow-up: 1 year or prn. J Luis Quispe MD, [facility] Cardiovascular Medicine [facility] Clinic scheduling: Mari Gant [phone] Clinic Team Nurse: Maria L Paz RN [phone] I provided care to the patient today via telephone conference. The total time associated with this visit was 25 minutes. documented in this encounter Plan of Treatment Upcoming Encounters Date Type Specialty Care Team Description 05/26/2022 Office Visit Otolaryngology Ricardo Panda PA [facility] [place] [address] (Wo rk) 06/02/2022 Infusion Hematology and Oncology 06/16/2022 Infusion Hematology and Oncology 06/21/2022 Office Visit Neurology Tyler Rojas MD [facility] Neurology [place], [place] [phone] (Wo rk) 06/30/2022 Infusion Hematology and Oncology 07/14/2022 Infusion Hematology and Oncology 07/28/2022 Infusion Hematology and Oncology 08/11/2022 Infusion Hematology and Oncology 11/04/2022 Office Visit Rheumatology Dante Freedman PA [facility] RHEUMATOLOGY [place], [place] [address] (Wo rk) documented as of this encounter Visit Diagnoses Diagnosis PAF (paroxysmal atrial fibrillation) Atrial fibrillation documented in this encounter Care Teams Saw Feeder Relationship Specialty Start Date End Date Violetta Sanford MD PCP - General 04/02/14 [address] [place] [address] documented as of this encounter
--- OUTSIDE RECORDS SUMMARY | 2022-05-24 10:50 | XMS_ITS | Encounter Summary ---
:1955 Author Organization [facility] [place] [address] Care Team Providers Name Role Phone Violetta Sanford MD Primary Care Provider Reason for Visit Reason Onset Date Comments Appointment 10/28/2020 Encounter Details Date Type Department Care Team Description 10/28/2020 Telephone Endocrinology at [facility] C Alice Sawyer, Appointment [facility] [place] [address] [facility] [phone] ENDOCRINOLOGY [place] [phone] (Wo rk) Social History Tobacco Use Types [...] encounter Miscellaneous Notes Telephone Encounter - Aria Soto - 10/28/2020 8:54 AM EDT LM for pt to discuss [facility] or keep as an in person visit with Monica instead. documented in this encounter Plan of Treatment Upcoming Encounters Date Type Specialty Care Team Description 05/26/2022 Office Visit Otolaryngology Ricardo Panda PA [facility] [place], [place] [address] (Wo rk) 06/02/2022 Infusion Hematology and Oncology 06/16/2022 Infusion Hematology and Oncology 06/21/2022 Office Visit Neurology Tyler Rojas MD [facility] Neurology [place], [place] [phone] (Wo rk) 06/30/2022 Infusion Hematology and Oncology 07/14/2022 Infusion Hematology and Oncology 07/28/2022 Infusion Hematology and Oncology 08/11/2022 Infusion Hematology and Oncology 11/04/2022 Office Visit Rheumatology Dante Freedman PA [facility] RHEUMATOLOGY [place], [place] [address] (Wo rk) documented as of this encounter Visit Diagnoses Not on filedocumented in this encounter Care Teams Tank Insulator Rubber Relationship Specialty Start Date End Date Violetta Sanford MD PCP - General 04/02/14 [facility] ALONDRA [address] [place] [address] documented as of this encounter
--- OUTSIDE RECORDS SUMMARY | 2022-05-24 10:50 | XMS_ITS | Encounter Summary ---
:1955 Author Organization [facility] [place] [address] Care Team Providers Name Role Phone Violetta Sanford MD Primary Care Provider Reason for Visit Reason Onset Date Comments Medication Refill 09/02/2020 Encounter Details Date Type Department Care Team Description 09/02/2020 Refill Solid Organ Transplant at Alejo Kearney MD [facility] Giovana tyler [place] [address] [place] [address] [phone] (Wo rk) Social History Tobacco Use Types [...] PA [facility] [place], [place] [address] (Wo rk) 06/02/2022 Infusion Hematology and Oncology 06/16/2022 Infusion Hematology and Oncology 06/21/2022 Office Visit Neurology Tyler Rojas MD [facility] er Neurology [place], [place] [phone] (Wo rk) 06/30/2022 Infusion Hematology and Oncology 07/14/2022 Infusion Hematology and Oncology 07/28/2022 Infusion Hematology and Oncology 08/11/2022 Infusion Hematology and Oncology 11/04/2022 Office Visit Rheumatology Dante Freedman PA [facility] ER RHEUMATOLOGY [place], [place] [address] (Wo rk) documented as of this encounter Visit Diagnoses Not on filedocumented in this encounter Care Teams Brand Ambassador Relationship Specialty Start Date End Date Violetta Sanford MD PCP - General 04/02/14 [facility] ALONDRA [address]ID [address] [place] [address] documented as of this encounter
--- OUTSIDE RECORDS SUMMARY | 2022-05-24 10:50 | XMS_ITS | Encounter Summary ---
:1955 Author Organization [facility] [place] [address] Care Team Providers Name Role Phone Violetta Sanford MD Primary Care Provider Reason for Visit Reason Onset Date Comments Medication Refill 01/07/2021 Encounter Details Date Type Department Care Team Description 01/07/2021 Refill Endocrinology at [facility] Monica Jimenez PA [facility] [place] [address] ENDOCRINOLOGY [phone] [place] [phone] (Wo rk) Social History Tobacco Use Types [...] this encounter Miscellaneous Notes Telephone Encounter - Blank Gongora LPN - 01/07/2021 3:02 PM EDT Requested Prescriptions Pending Prescriptions Disp Refills ??? flash glucose sensor (FreeStyle Gilberto 14 Day Sensor) Kit 6 kit 3 Si TIMES DAILY Last office visit: 10/28/2020 Last refill: 05/13/2020 documented in this encounter Plan of Treatment Upcoming Encounters Date Type Specialty Care Team Description 05/26/2022 Office Visit Otolaryngology Ricardo Panda PA [facility] er [place], [place] [address] (Wo rk) 06/02/2022 Infusion Hematology and Oncology 06/16/2022 Infusion Hematology and Oncology 06/21/2022 Office Visit Neurology Tyler Rojas MD [facility] Neurology [place], [place] [phone] (Wo rk) 06/30/2022 Infusion Hematology and Oncology 07/14/2022 Infusion Hematology and Oncology 07/28/2022 Infusion Hematology and Oncology 08/11/2022 Infusion Hematology and Oncology 11/04/2022 Office Visit Rheumatology Dante Freedman PA [facility] ER [place]HEUMATOLOGY [place], [place] [address] (Wo rk) documented as of this encounter Visit Diagnoses Not on filedocumented in this encounter Care Teams Health Care Marketing Manager Relationship Specialty Start Date End Date Violetta Sanford MD PCP - General 04/02/14 [facility] ALONDRA [address] [place] [address] documented as of this encounter
--- OUTSIDE RECORDS SUMMARY | 2022-05-24 10:50 | XMS_ITS | Encounter Summary ---
:1955 Author Organization [place] [address] Care Team Providers Name Role Phone Violetta Sanford MD Primary Care Provider Reason for Visit Reason Comments Injections Aranesp Treatment/Therapy Plan Authorization (Routine) - Authorized Specialty Diagnoses / Procedures Referred By Contact Refer red To Contact Hematology and Diagnoses CKD (chronic kidney disease) stage 4, GFR 15-29 ml/min Nicky Baez Hem Onc Office Oncology Procedures ALFREDA Ramirez MD [address] [place] [address] HEMATOLOGY/ONCOLOGY [phone] [place] [address] Referral ID Status Reason Start Date Expiration Date Visits V isits Requested Authorized [id number] Authorized 10/08/2020 06/23/2022 99 99 Encounter Details Date Type Department Care Team Description 12/31/2020 Infusion Hematology Oncology at [facility] of chronic renal [facility] failure, stage 4 (severe) [address] [place] [phone] Social History Tobacco Use Types [...] documented as of this encounter Progress Notes Amena Burnette RN - 12/31/2020 11:30 AM EDT INFUSION THERAPY ADMINISTRATION NOTES DIAGNOSIS: Anemia d/t CKD Stage IV, h/o kidney transplant REASON FOR VISIT: Aranesp Injection SUBJECTIVE Mr. Torres is here for his Aranesp injection. He offers no complaints. OBJECTIVE LAB DATA: hgb 9.8, hct 30.8 Pre administration: Orders independently verified for drug name, route, and dosage by Sumeet Burnette RN and pharmacist on-site. REACTIONS (DESCRIPTION, TIME, INTERVENTION AND EFFECTIVENESS) none ASSESSMENT Mr. Torres tolerated treatment well. PLAN Return to clinic per routine. Patient was reminded to call in the interim with any questions/concerns. documented in this encounter Plan of Treatment Upcoming Encounters Date Type Specialty Care Team Description 05/26/2022 Office Visit Otolaryngology Ricardo Panda PA [facility] [place] [address] (Wo rk) 06/02/2022 Infusion Hematology and Oncology 06/16/2022 Infusion Hematology and Oncology 06/21/2022 Office Visit Neurology Tyler Rojas MD [facility] Neurology [place], [place] [phone] (Wo rk) 06/30/2022 Infusion Hematology and Oncology 07/14/2022 Infusion Hematology and Oncology 07/28/2022 Infusion Hematology and Oncology 08/11/2022 Infusion Hematology and Oncology 11/04/2022 Office Visit Rheumatology Dante Freedman PA [facility] RHEUMATOLOGY [place], [place] [address] (Wo rk) documented as of this encounter Visit Diagnoses Diagnosis Anemia of chronic renal failure, stage 4 (severe) documented in this encounter Administered Medications Inactive Administered Medications - up to 3 most recent administrations Medication Order MAR Action Action Date Dose Rate Site darbepoetin cristy-polysorbate Given 12/31/2020 12:00 PM EDT 300 m cg Right Arm (Aranesp) (300 mcg/0.6 mL) injection 300 mcg 300 mcg, Subcutaneous, ONCE, 1 dose, On Tue12/31/20 at 1145, Hold parameters for MDS and chemotherapy-induced anemia: Hemoglobin greater than or equal to 10 gm/dL Hematocrit greater than or equal to 30% Hold parameters for CKD: Hemoglobin greater than or equal to 12 gm/dL Hematocrit greater than or equal to 36%, Routine, What is the indication of use? Chronic Kidney Disease (CKD) documented in this encounter Care Teams Proprietary Trader Relationship Specialty Start Date End Date Violetta Sanford MD PCP - General 04/02/14 [address] [place] [address] documented as of this encounter
--- OUTSIDE RECORDS SUMMARY | 2022-05-24 10:50 | XMS_ITS | Encounter Summary ---
:1955 Author Organization [facility] [place] [address] Care Team Providers Name Role Phone Violetta Sanford MD Primary Care Provider Reason for Visit Reason Onset Date Comments Medication Refill 10/28/2020 Encounter Details Date Type Department Care Team Description 10/28/2020 Refill Cardiology at [facility] J Luis Quispe MD Medication [facility]ill [facility] [place] [address] CARDIOLOGY DEPT. [phone] [place], [place] [address] (Wo rk) Social History Tobacco [...] Ricardo Panda PA [facility] [place], [place] [address] (Wo rk) 06/02/2022 Infusion Hematology and Oncology 06/16/2022 Infusion Hematology and Oncology 06/21/2022 Office Visit Neurology Tyler Rojas MD [facility] Medical [facility] er Neurology [place], [place] [phone] (Wo rk) 06/30/2022 Infusion Hematology and Oncology 07/14/2022 Infusion Hematology and Oncology 07/28/2022 Infusion Hematology and Oncology 08/11/2022 Infusion Hematology and Oncology 11/04/2022 Office Visit Rheumatology Dante Freedman PA [facility] ER RHEUMATOLOGY [place], [place] [address] (Wo rk) documented as of this encounter Visit Diagnoses Diagnosis Chronic atrial fibrillation Atrial fibrillation documented in this encounter Care Teams Regulatory Submissions Associate Relationship Specialty Start Date End Date Violetta Sanford MD PCP - General 04/02/14 [facility] ALONDRA [address] [place] [address] documented as of this encounter
--- OUTSIDE RECORDS SUMMARY | 2022-05-24 10:50 | XMS_ITS | Encounter Summary ---
:1955 Author Organization [facility] [place] [address] Care Team Providers Name Role Phone Violetta Sanford MD Primary Care Provider Reason for Visit Reason Onset Date Comments Labs Only 12/10/2020 Lab Tracking Encounter Details Date Type Department Care Team Description 12/10/2020 Telephone Hematology/Oncology at [facility], Labs Only (Lab Tracking) [facility] Angelica Gilbert RN [address] [place] [phone] Social History Tobacco Use Types Packs/Day [...] Telephone Encounter - Angelica Malhotra RN - 12/10/2020 12:51 PM EDT LAB TRACKING Brett Dailey [id number] 1955 DIAGNOSIS: anemia d/t CKD stage IV, h/o kidney transplant LABS: CBC every 3 weeks MEDICATIONS: Aranesp 300 mcg every 3 weeks if HGB <12 ASSESSMENT/PLAN: CBC reviewed by provider. Aranesp given SQ today. Labs again 12/31 prior to FUV and aranesp as needed, which is already scheduled. Results for BRETT DAILEY ( ) as of 12/10/2020 12:54 Ref. Range 10/29/2020 00:00 11/19/2020 00:00 12/06/2020 00:00 12/10/2020 00:00 WBC Unknown 7.28 7.92 6.83 Hemoglobin Unknown 9.4 9.9 9.7 Hematocrit Unknown 29.3 31.5 30.4 MCV Unknown 96.3 92.7 Platelets Unknown 223 197 192 Neutr Abs (ANC) Unknown 4.81 4.23 Sodium Unknown 139 Potassium Unknown 5.0 BUN Unknown 48 Creatinine Unknown 3.2 Iron Unknown 62 TIBC Unknown 184 Ferritin Unknown 112 documented in this encounter Plan of Treatment Upcoming Encounters Date Type Specialty Care Team Description 05/26/2022 Office Visit Otolaryngology Ricardo Panda PA [facility] Dr [place], [place] [address] (Wo rk) 06/02/2022 Infusion Hematology and Oncology 06/16/2022 Infusion Hematology and Oncology 06/21/2022 Office Visit Neurology Tyler Rojas MD [facility] Neurology [place], [place] [phone] (Wo rk) 06/30/2022 Infusion Hematology and Oncology 07/14/2022 Infusion Hematology and Oncology 07/28/2022 Infusion Hematology and Oncology 08/11/2022 Infusion Hematology and Oncology 11/04/2022 Office Visit Rheumatology Dante Freedman PA [facility] RHEUMATOLOGY [place], [place] 0[address] (Wo rk) documented as of this encounter Procedures Procedure Name Priority Date/Time Associated Diagnosis Comme nts IRON AND TIBC Routine 12/10/2020 Results for th is procedure are i n the results section . CBC (WITH DIFF) Routine 12/10/2020 Results for this procedure are i n the results section . COMPREHENSIVE METABOLIC Routine 12/06/2020 Resu lts for this PANEL (NON-FASTING) procedur e are in the results section . documented in this encounter Results Iron and TIBC (12/10/2020) P athologist Signature Iron 62 TIBC 184 Ferritin 112 Specimen (Source) Anatomical Location Collection Method / Collectio n Time Received Time / Laterality Volume Blood Carrie Giovana Schaal [employer] C[employer]IER CHEMISTRY ORDERABLES CBC (with Diff) (12/10/2020) P athologist Signature WBC 6.83 Hemoglobin 9.7 Hematocrit 30.4 MCV 92.7 Platelets 192 Neutr Abs (ANC) 4.23 Specimen (Source) Anatomical Location Collection Method / Collectio n Time Received Time / Laterality Volume Blood Carrie D Schaal [employer] HEMATOLOGY ORDERABLES Comprehensive metabolic panel (non-fasting) (12/06/2020) P athologist Signature BUN 48 Creatinine 3.2 Sodium 139 Potassium 5.0 Specimen (Source) Anatomical Location Collection Method / Collectio n Time Received Time / Laterality Volume Blood Carrie D Schaal [employer] C[employer] CHEMISTRY ORDERABLES documented in this encounter Visit Diagnoses Not on filedocumented in this encounter Care Teams Lottery Manager Relationship Specialty Start Date End Date Violetta Sanford MD PCP - General 04/02/14 [address] [place] [address] documented as of this encounter
--- OUTSIDE RECORDS SUMMARY | 2022-05-24 10:50 | XMS_ITS | Encounter Summary ---
:1955 Author Organization [facility] [place] [address] Care Team Providers Name Role Phone Violetta Sanford MD Primary Care Provider Encounter Details Date Type Department Care Team Description 12/16/2020 External Results Solid Organ Transpla nt at [facility] [place] [address] Social History Tobacco Use Types Packs/Day [...] 05/26/2022 Office Visit Otolaryngology Ricardo Panda PA [facility] [address] [place] [address] (Wo rk) 06/02/2022 Infusion Hematology and Oncology 06/16/2022 Infusion Hematology and Oncology 06/21/2022 Office Visit Neurology Tyler Rojas MD [facility] Dr Sofi [place] [address] 6-2022 (Wo rk) 06/30/2022 Infusion Hematology and Oncology 07/14/2022 Infusion Hematology and Oncology 07/28/2022 Infusion Hematology and Oncology 08/11/2022 Infusion Hematology and Oncology 11/04/2022 Office Visit Rheumatology Dante Freedman PA [facility] RHEUMATOLOGY [place], [place] [address] (Wo rk) documented as of this encounter Procedures Procedure Name Priority Date/Time Associated Diagnosis Comme nts LAB SCAN Routine 12/15/2020 Results for thi s procedure are in the resu lts section. documented in this encounter Results Scan Doc: Lab (12/15/2020) Narrative This result has an attachment that is no t available. Historical Provider MD SANDOVAL MGR SCAN EXT ORDR/RSLT documented in this encounter Visit Diagnoses Not on filedocumented in this encounter Care Teams Scale Shooter Relationship Specialty Start Date End Date Violetta Sanford MD PCP - General 04/02/14 [address] [place] [address] documented as of this encounter
--- OUTSIDE RECORDS SUMMARY | 2022-05-24 10:50 | XMS_ITS | Encounter Summary ---
:1955 Author Organization [facility] [place] [address] Care Team Providers Name Role Phone Violetta Sanford MD Primary Care Provider Reason for Visit Reason Onset Date Comments Labs Only 10/29/2020 Lab Tracking Encounter Details Date Type Department Care Team Description 10/29/2020 Telephone Hematology/Oncology at [facility], Labs Only (Lab Tracking) [facility] Angelica Gilbert RN [address] [place] [phone] Social History Tobacco Use Types Packs/Day [...] Telephone Encounter - Angelica Malhotra RN - 10/29/2020 1:09 PM EDT LAB TRACKING Brett Dailey [id number] 1955 DIAGNOSIS: anemia d/t CKD stage IV, h/o kidney transplant LABS: CBC every 3 weeks MEDICATIONS: Aranesp 300 mcg every 3 weeks if HGB <12 ASSESSMENT/PLAN: CBC reviewed by Dr Baez. Aranesp given SQ. Labs again 11/19/20. Results for BRETT DAILEY ( ) as of 10/29/2020 13:12 Ref. Range 10/08/2020 00:00 10/29/2020 00:00 WBC Unknown 8.22 7.28 RBC Unknown 2.81 Hemoglobin Unknown 8.8 (A) 9.4 Hematocrit Unknown 27.7 29.3 Platelets Unknown 206 223 Neutr Abs (ANC) Unknown 4.49 documented in this encounter Plan of Treatment Upcoming Encounters Date Type Specialty Care Team Description 05/26/2022 Office Visit Otolaryngology Ricardo Panda PA [facility] Dr [place], [place] [address] (Wo rk) 06/02/2022 Infusion Hematology and Oncology 06/16/2022 Infusion Hematology and Oncology 06/21/2022 Office Visit Neurology Tyler Rojas MD [facility] Neurology [place], [place] [phone] (Wo rk) 06/30/2022 Infusion Hematology and Oncology 07/14/2022 Infusion Hematology and Oncology 07/28/2022 Infusion Hematology and Oncology 08/11/2022 Infusion Hematology and Oncology 11/04/2022 Office Visit Rheumatology Dante Freedman PA [facility] RHEUMATOLOGY [place], [place] [address] (Wo rk) documented as of this encounter Procedures Procedure Name Priority Date/Time Associated Diagnosis Comme nts CBC (WITH DIFF) Routine 10/29/2020 Results for this procedure are in the resu lts section. documented in this encounter Results CBC (with Diff) (10/29/2020) P athologist Signature WBC 7.28 Hemoglobin 9.4 Hematocrit 29.3 Platelets 223 Specimen (Source) Anatomical Location Collection Method / Collectio n Time Received Time / Laterality Volume Blood Historical Provider HEMATOLOGY ORDERABLES documented in this encounter Visit Diagnoses Not on filedocumented in this encounter Care Teams Meat Stuffer Relationship Specialty Start Date End Date Violetta Sanford MD PCP - General 04/02/14 [address] [place] [address] documented as of this encounter
--- OUTSIDE RECORDS SUMMARY | 2022-05-24 10:50 | XMS_ITS | Encounter Summary ---
:1955 Author Organization [facility] [address] Care Team Providers Name Role Phone Violetta Sanford MD Primary Care Provider Reason for Visit Reason Onset Date Comments Appointment 10/09/2020 Encounter Details Date Type Department Care Team Description 10/09/2020 Telephone Rheumatology at [facility] Sammy [place] [phone] Social History Tobacco Use Types Packs/Day [...] Encounter - Sammy Zaldivar RN - 10/09/2020 2:47 PM EDT Patient calls regarding upcoming appointment, leaves message questioning if this may be changed. documented in this encounter Plan of Treatment Upcoming Encounters Date Type Specialty Care Team Description 05/26/2022 Office Visit Otolaryngology Ricardo Panda PA [facility] Dr [place], [place] [address] (Wo rk) 06/02/2022 Infusion Hematology and Oncology 06/16/2022 Infusion Hematology and Oncology 06/21/2022 Office Visit Neurology Tyler Rojas MD [facility] Neurology [place], [place] [phone] (Wo rk) 06/30/2022 Infusion Hematology and Oncology 07/14/2022 Infusion Hematology and Oncology 07/28/2022 Infusion Hematology and Oncology 08/11/2022 Infusion Hematology and Oncology 11/04/2022 Office Visit Rheumatology Dante Freedman PA [facility] RHEUMATOLOGY [place], [place] [address] (Wo rk) documented as of this encounter Visit Diagnoses Not on filedocumented in this encounter Care Teams Slotter Operator Helper Relationship Specialty Start Date End Date Violetta Sanford MD PCP - General 04/02/14 [address] [place] [address] documented as of this encounter
--- OUTSIDE RECORDS SUMMARY | 2022-05-24 10:50 | XMS_ITS | Encounter Summary ---
:1955 Author Organization [facility] [address] Care Team Providers Name Role Phone Violetta Sanford MD Primary Care Provider Reason for Visit Reason Onset Date Comments Medication Refill 09/02/2020 Encounter Details Date Type Department Care Team Description 09/02/2020 Refill Solid Organ Transplant at Alejo Kearney MD [facility] Giovana tyler [place] [address] [place] [address] [phone] (Wo rk) Social History Tobacco Use Types [...] Panda PA [facility] Dr [place], [place] [address] (Wo rk) 06/02/2022 Infusion Hematology and Oncology 06/16/2022 Infusion Hematology and Oncology 06/21/2022 Office Visit Neurology Tyler Rojas MD [facility] er Neurology [place], [place] [phone] (Wo rk) 06/30/2022 Infusion Hematology and Oncology 07/14/2022 Infusion Hematology and Oncology 07/28/2022 Infusion Hematology and Oncology 08/11/2022 Infusion Hematology and Oncology 11/04/2022 Office Visit Rheumatology Dante Freedman PA [facility] ER RHEUMATOLOGY [place], [place] [address] (Wo rk) documented as of this encounter Visit Diagnoses Not on filedocumented in this encounter Care Teams Waste Duster Relationship Specialty Start Date End Date Violetta Sanford MD PCP - General 04/02/14 [facility] AL[address]DRA [address] [place] [address] documented as of this encounter
--- OUTSIDE RECORDS SUMMARY | 2022-05-24 10:50 | XMS_ITS | Encounter Summary ---
:1955 Author Organization [facility] [place] [address] Care Team Providers Name Role Phone Violetta Sanford MD Primary Care Provider Reason for Visit Reason Onset Date Comments Labs Only 10/09/2020 Lab tracking Encounter Details Date Type Department Care Team Description 10/09/2020 Telephone Hematology/Oncology at Dulce Quinn, Labs Only (Lab [facility] RN tracking) [address] [place] [phone] Social History Tobacco Use Types Packs/Day [...] Telephone Encounter - Dulce Quinn, RN - 10/09/2020 8:45 AM EDT LAB TRACKING ?? DIAGNOSIS: Anemia of chronic renal failure, stage 4 ?? LABS ORDERED: cbc diff every 3 weeks at [facility]. Next due 4/ to get back to Wed apts. ?? MEDICATIONS: Aranesp 300mg if hg less than or equal to 12 ? Assessment/Plan: CBC and Aranesp every 3 weeks x4 then apt with provider. Labs reviewed by Dr. Baez. Called Reuben to let him know he is OK to get Aransep tomorrow and that his next blood work and injection would be October 29. Results for BRETT DAILEY ( ) as of 10/09/2020 09:04 Ref. Range 09/01/2020 09:39 10/08/2020 00:00 WBC Unknown 7.9 8.22 RBC Unknown 3.13 (L) 2.81 Hemoglobin Latest Ref Range: 13.5 - 17.5 9.5 (L) 8.8 (A) Hematocrit Unknown 29.2 (L) 27.7 Platelets Unknown 207 206 Neutr Abs (ANC) Unknown 4.65 4.49 Iron Latest Ref Range: 65 - 175 41 (A) TIBC Latest Ref Range: 250 - 450 217 (A) Ferritin Latest Ref Range: 26 - 388 103 Transferrin Latest Ref Range: 20 - 55 19 (A) documented in this encounter Plan of Treatment Upcoming Encounters Date Type Specialty Care Team Description 05/26/2022 Office Visit Otolaryngology Ricardo Panda PA [facility] Dr Rodriguez [place] [address] (Wo rk) 06/02/2022 Infusion Hematology and Oncology 06/16/2022 Infusion Hematology and Oncology 06/21/2022 Office Visit Neurology Tyler Rojas MD [facility] Neurology [place], [place] [phone] (Wo rk) 06/30/2022 Infusion Hematology and Oncology 07/14/2022 Infusion Hematology and Oncology 07/28/2022 Infusion Hematology and Oncology 08/11/2022 Infusion Hematology and Oncology 11/04/2022 Office Visit Rheumatology Dante Freedman PA [facility] [place]HEUMATOLOGY [place], [place] [address] (Wo rk) documented as of this encounter Procedures Procedure Name Priority Date/Time Associated Diagnosis Comme nts IRON AND TIBC Routine 10/08/2020 Results for th is procedure are in the resu lts section. CBC (WITH DIFF) Routine 10/08/2020 Results for this procedure are in the resu lts section. documented in this encounter Results (ABNORMAL) Iron and TIBC (10/08/2020) athologist Signature Iron 41 (A) 65 - 175 TIBC 217 (A) 250 - 450 Transferrin 19 (A) 20 - 55 Ferritin 103 26 - 388 Specimen (Source) Anatomical Location Collection Method / Collectio n Time Received Time / Laterality Volume Blood 10/08/2020 Nicky Baez MD CHEMISTRY ORDERABLES (ABNORMAL) CBC (with Diff) (10/08/2020) athologist Signature WBC 8.22 RBC 2.81 Hemoglobin 8.8 (A) 13.5 - 17.5 Hematocrit 27.7 Platelets 206 Neutr Abs (ANC) 4.49 Specimen (Source) Anatomical Location Collection Method / Collectio n Time Received Time / Laterality Volume Blood 10/08/2020 Nicky Baez MD HEMATOLOGY ORDERABLES documented in this encounter Visit Diagnoses Not on filedocumented in this encounter Care Teams Iphone Developer Relationship Specialty Start Date End Date Violetta Sanford MD PCP - General 04/02/14 [address] [place] [address] documented as of this encounter
--- OUTSIDE RECORDS SUMMARY | 2022-05-24 10:50 | XMS_ITS | Encounter Summary ---
:1955 Author Organization [facility] [place] [address] Care Team Providers Name Role Phone Violetta Sanford MD Primary Care Provider Encounter Details Date Type Department Care Team Description 03/04/2021 Notes Only Hematology and Oncology at Carrie Hicks, BERTA [facility] Giovana tyler HEMATOLOGY/[place] [address] DEPT. [phone] [place] [id number] (Wo rk) Social History Tobacco Use Types [...] documented as of this encounter Progress Notes Carrie Trotter APRN - 03/04/2021 2:30 PM EDT Reuben is in the infusion room today for his aranesp. Renal function continues to decline. Potassium now up to 5. He is due for his transplant follow- up. I do not see this scheduled. His last set of labs were called in to his transplant team. I called Dr. Garnett's office to inquire about his follow-up. Spoke with Ama who reported they will not schedule him until he has more labs done - they will call him to get this done. He is at [facility] later this week to see endocrine - hoping he can get this blood work done at that time. We will continue to follow in heme clinic with EPO support until he starts Dialysis. documented in this encounter Plan of Treatment Upcoming Encounters Date Type Specialty Care Team Description 05/26/2022 Office Visit Otolaryngology Ricardo Panda PA [facility] [place], [place] [address] (Wo rk) 06/02/2022 Infusion Hematology and Oncology 06/16/2022 Infusion Hematology and Oncology 06/21/2022 Office Visit Neurology Tyler Rojas MD [facility] Neurology [place], [place] [phone] (Wo rk) 06/30/2022 Infusion Hematology and Oncology 07/14/2022 Infusion Hematology and Oncology 07/28/2022 Infusion Hematology and Oncology 08/11/2022 Infusion Hematology and Oncology 11/04/2022 Office Visit Rheumatology Dante Freedman PA [facility] [place]ATOLOGY [place] [address] (Wo rk) documented as of this encounter Visit Diagnoses Not on filedocumented in this encounter Care Teams Scoreboard Operator Relationship Specialty Start Date End Date Violetta Sanford MD PCP - General 04/02/14 [facility] [address] [place] [address] documented as of this encounter
--- OUTSIDE RECORDS SUMMARY | 2022-05-24 10:50 | XMS_ITS | Encounter Summary ---
:1955 Author Organization [facility] [place] [address] Care Team Providers Name Role Phone Violetta Sanford MD Primary Care Provider Reason for Visit Reason Onset Date Comments Medication Refill 09/10/2020 Encounter Details Date Type Department Care Team Description 09/10/2020 [facility] [place] [address] Social History Tobacco Use Types Packs/Day [...] Visit Otolaryngology Ricardo Panda PA [facility] STE[place]A [place] 0[address] (Wo rk) 06/02/2022 Infusion Hematology and Oncology 06/16/2022 Infusion Hematology and Oncology 06/21/2022 Office Visit Neurology Tyler Rojas MD [facility] Dr Sofi [place], [place] [phone] (Wo rk) 06/30/2022 Infusion Hematology and Oncology 07/14/2022 Infusion Hematology and Oncology 07/28/2022 Infusion Hematology and Oncology 08/11/2022 Infusion Hematology and Oncology 11/04/2022 Office Visit Rheumatology Dante Freedman PA [facility] ER RHEUMATOLOGY [place], [place] [address] (Wo rk) documented as of this encounter Visit Diagnoses Diagnosis Transplanted kidney Kidney replaced by transplant documented in this encounter Care Teams Insurance Solicitor Relationship Specialty Start Date End Date Violetta Sanford MD PCP - General 04/02/14 [address] [place] [address] documented as of this encounter
--- OUTSIDE RECORDS SUMMARY | 2022-05-24 10:50 | XMS_ITS | Encounter Summary ---
:1955 Author Organization [facility] [place] [address] Care Team Providers Name Role Phone Violetta Sanford MD Primary Care Provider Encounter Details Date Type Department Care Team Description 09/02/2020 Notes Only Solid Organ Transpla nt at [facility] [place] [address] Social History Tobacco Use Types Packs/Day Years [...] documented as of this encounter Progress Notes Awa Calderon - 09/02/2020 10:36 AM EST PA Needed: Medication: GABAPENTIN 100 MG, 180 PER 30 days, to allow for titration Insurance: [employer] Medicare RX Phone: Inspector Returned Materials: Via [employer] Reference #: Outcome: Approved through 07/24/2021 documented in this encounter Plan of Treatment Upcoming Encounters Date Type Specialty Care Team Description 05/26/2022 Office Visit Otolaryngology Ricardo Panda PA [facility] Dr [place], [place] [address] (Wo rk) 06/02/2022 Infusion Hematology and Oncology 06/16/2022 Infusion Hematology and Oncology 06/21/2022 Office Visit Neurology Tyler Rojas MD [facility] Neurology [place], [place] [phone] (Wo rk) 06/30/2022 Infusion Hematology and Oncology 07/14/2022 Infusion Hematology and Oncology 07/28/2022 Infusion Hematology and Oncology 08/11/2022 Infusion Hematology and Oncology 11/04/2022 Office Visit Rheumatology Dante Freedman PA [facility] RHEUMATOLOGY [place], [place] [address] (Wo rk) documented as of this encounter Visit Diagnoses Not on filedocumented in this encounter Care Teams Paper Wrapping Machine Operator Relationship Specialty Start Date End Date Violetta Sanford MD PCP - General 04/02/14 [address] [place] [address] documented as of this encounter
--- OUTSIDE RECORDS SUMMARY | 2022-05-24 10:50 | XMS_ITS | Encounter Summary ---
:1955 Author Organization [facility] [place] [address] Care Team Providers Name Role Phone Violetta Sanford MD Primary Care Provider Encounter Details Date Type Department Care Team Description 09/18/2020 Telephone [facility]iology at [facility] Rayne Shukla [facility] [place] [place] [address] Social History Tobacco Use Types Packs/Day Years [...] Visit Otolaryngology Ricardo Panda PA [facility] Dr Rodriguez [place] [address] (Wo rk) 06/02/2022 Infusion Hematology and Oncology 06/16/2022 Infusion Hematology and Oncology 06/21/2022 Office Visit Neurology Tyler Rojas MD [facility] Dr Sofi [place] [address] (Wo rk) 06/30/2022 Infusion Hematology and Oncology 07/14/2022 Infusion Hematology and Oncology 07/28/2022 Infusion Hematology and Oncology 08/11/2022 Infusion Hematology and Oncology 11/04/2022 Office Visit Rheumatology Dante Freedman PA [facility] RHEUMATOLOGY [place], [place] 0[address] (Wo rk) documented as of this encounter Visit Diagnoses Not on filedocumented in this encounter Care Teams Shear Scrapman Relationship Specialty Start Date End Date Violetta Sanford MD PCP - General 04/02/14 [address] [place] [address] documented as of this encounter
--- OUTSIDE RECORDS SUMMARY | 2022-05-24 10:50 | XMS_ITS | Encounter Summary ---
:1955 Author Organization [facility] [place] [address] Care Team Providers Name Role Phone Violetta Sanford MD Primary Care Provider Encounter Details Date Type Department Care Team Description 12/31/2020 Office Visit Hematology/Oncology Carrie Trotter, Maria Del Carmen a of chronic at [facility] PLISSE MACHINE OPERATOR renal failure, stage [address] (severe) [place] [address] HEMATOLOGY/ONCOLOG [phone] [address] DEPT[address] [place], [place] [address] Social History Tobacco Use Types [...] Sign Reading Time Taken Comments Blood Pressure 123/50 12/31/2020 10:45 AM EDT Pulse 69 12/31/2020 10:45 AM EDT Temperature 36.8 ??C (98.2 ??F) 12/31/2020 10:45 AM EDT Respiratory Rate 18 12/31/2020 10:45 AM EDT Oxygen Saturation 99% 12/31/2020 10:45 AM EDT Inhaled Oxygen Concentration - - Weight 123.4 kg (272 lb) 12/31/2020 10:45 AM EDT Height 190.5 cm (6' 3) 12/31/2020 10:45 AM EDT Body Mass Index 34 12/31/2020 10:45 AM EDT documented in this encounter Progress Notes Carrie Trotter, PLISSE MACHINE OPERATOR - 12/31/2020 11:00 AM EDT Subjective: Patient ID: Leroy Torres is a 65 y.o. male here for f/u of Chronic anemia Patient Active Problem List Diagnosis ??? Essential [...] and have better management of his DM. Annalee had no problems with this Aranesp injections. He reports that he feels about the same - but he [...] and numbness. Psychiatric/Behavioral: Negative. Objective: Physical Exam Constitutional: Appearance: He is well-developed. HENT: Head: Atraumatic. Eyes: Conjunctiva/sclera: Conjunctivae normal. Pupils: Pupils are equal, round, and reactive to light. Cardiovascular: Rate and Rhythm: Normal rate and regular rhythm. Heart sounds: Normal heart sounds. No murmur heard. Pulmonary: Effort: Pulmonary effort is normal. Breath sounds: Normal breath sounds. Abdominal: General: Bowel sounds are normal. Palpations: Abdomen is soft. Musculoskeletal: General: Normal range of motion. Cervical back: Normal range of motion and neck supple. 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 Left side of head: No submental, submandibular, tonsillar, preauricular, posterior auricular or occipital adenopathy. Cervical: No cervical adenopathy. Upper Body: Right upper body: No supraclavicular adenopathy. Left upper body: No supraclavicular adenopathy. Skin: General: Skin is warm and dry. Neurological: Mental Status: He is alert and oriented to person, place, and time. Recent Results (from the past 72 hour(s)) CBC (with Diff) Result Value Ref Range WBC 8.00 Hemoglobin 9.8 Hematocrit 30.8 MCV 95.1 Platelets 194 Neutr Abs (ANC) 5.21 Iron and TIBC Result Value Ref Range Iron 42 TIBC 180 Transferrin 23 Ferritin 117 BP 123/50 (Patient Position: Sitting) Pulse 69 Temp 36.8 ??C (98.2 ??F) (Temporal) Resp 18 Ht 190.5 cm (6' 3) Wt 123.4 kg (272 lb) SpO2 99% BMI 34.00 kg/m?? Assessment and Plan: Leroy Torres is a very pleasant 65 y.o. male referred by Dr Garnett for consideration of erythropoietin supplementation for anemia due to end-stage renal disease, status post transplant. ?? His hemoglobin had been in the 8-9 range. He started on Aranesp Q3 weeks approx 3 months ago. Sincethen his hemoglobin has increased into the 9 -10 range. He is tolerating it well and has seen an improvement in his activity. ? I do not anticipate that his hemoglobin will reach a normal level as a componant of his anemia is anemia of chronic disease. ? We will continue with aranesp 300mcg G6elsoh. ?Reuben will RTC in 4 months to see how he is doing. He will call sooner if any concerns or changes in status. ? documented in this encounter Plan of Treatment Upcoming Encounters Date Type Specialty Care Team Description 05/26/2022 Office Visit Otolaryngology Ricardo Panda PA [facility] [address] [place] [address] (Wo rk) 06/02/2022 Infusion Hematology and Oncology 06/16/2022 Infusion Hematology and Oncology 06/21/2022 Office Visit Neurology Tyler Rojas MD [facility] Neurology [place], [place] [phone] (Wo rk) 06/30/2022 Infusion Hematology and Oncology 07/14/2022 Infusion Hematology and Oncology 07/28/2022 Infusion Hematology and Oncology 08/11/2022 Infusion Hematology and Oncology 11/04/2022 Office Visit Rheumatology Dante Freedman PA [facility] RHEUMATOLOGY [place], [place] [address] (Wo rk) documented as of this encounter Visit Diagnoses Diagnosis Anemia of chronic renal failure, stage 4 (severe) documented in this encounter Care Teams Software Quality Tester Relationship Specialty Start Date End Date Violetta Sanford MD PCP - General 04/02/14 [address] [place] [address] documented as of this encounter
--- OUTSIDE RECORDS SUMMARY | 2022-05-24 10:50 | XMS_ITS | Encounter Summary ---
:1955 Author Organization [facility] Address [place] [id number] Care Team Providers Name Role Phone Violetta Sanford MD Primary Care Provider Encounter Details Date Type Department Care Team Description 10/28/2020 Office Visit Rheumatology at [facility] Dante Freedman Osteoarthritis of multiple j oints, unspecified osteoarthritis type (Primary Dx); [facility] Immunosuppression; [facility] H/[facility] kidney transplant; [place] [address] Guillory of both hands [phone] [place] [address] Social History Tobacco Use Types Packs/Day Years [...] Time Taken Comments Blood Pressure 138/55 10/28/2020 2:09 PM EDT Pulse 68 10/28/2020 2:09 PM EDT Temperature 36.8 ??C (98.2 ??F) 10/28/2020 2:09 PM EDT Respiratory Rate - - Oxygen Saturation 100% 10/28/2020 2:09 PM EDT Inhaled Oxygen - - Concentration Weight 131.5 kg (290 lb) 10/28/2020 2:09 subtracted for PM EDT prothesis Height 194.3 cm (6' 4.5) 10/28/2020 2:09 PM EDT Body Mass Index 34.84 10/28/2020 2:09 PM EDT documented in this encounter Progress Notes Dante Freedman PA - 10/28/2020 2:30 PM EDT Rheumatology Outpatient Note Chart review conducted prior [...] male who presents today for evaluation of hand arthralgias. He occasionally reports some morning stiffness. Patient tells me that each day over the course of his day his hands start to get achy because of that at night he applies a [id number] treatment of vitamin E oil. It is a little unclear where he gets this. He applies the vitamin E oil nightly and when he wakes up in the morning his hands feel fine. He has no significant joint arthralgias for most of the day then his hand arthralgias gradually get worse during the course of the day and then he tries the vitamin E oil again and then the cycle continues. He feels like there is something in his fingers sometimes they tingle. He reports that they do not swell. Although on the intake documentation provided by the patient he reported swelling. His attributes his hand arthralgias to a fall he had 3 years ago she thinks ever since then he has had increased aches and pains in his hands. He does not report any arthralgias in her shoulders or hips he does have a little bit of back pain that he finds bothersome. He denies any unusual headaches jaw claudication or changes in vision. There is been no scalp tenderness. ?? Patient has a complicated medical history with multiple medical problems including a kidney transplant diabetes COPD stage III, obesity, and bilateral [id number] amputations with prostheses. He utilizes a scooter at otherwise ambulates to and from the scooter today without any assistance devices. ?? Because of a question of inflammatory arthritis in his hands had screening laboratory studies obtained which were notable for an elevated sedimentation rate of 108, with a creatinine of 2.57 and a positive RAMONA, negative anti-CCP. ?? Patient tells me regarding his kidney transplant he has been told he will probably be able to continue on his current kidney for another 4 years before he may need another transplant. Interval History: Since his last visit we discontinued utilizing topical vitamin E oil on his hands he no longer findsthat as effective as it once was he is trying other topical measures. It does not bother him enough that he really wants to do anything different. He did over the holidays by a paraffin machine and while he gave him some relief it was not long-lasting enough for him to want to continue. He continues with his other providers and finds his overall level of function is fine Review of Systems Constitutional: Negative for anorexia, diaphoresis, absenteeism, fever and weight loss. Respiratory: Negative for cough, shortness of breath, chest discomfort and PND. Gastrointestinal: Negative for vomiting, nausea, diarrhea and trouble swallowing. HENT: Negative for throat clearing, sinus pressure, hoarse voice and postnasal drip. Psychiatric/Behavioral: Negative for social aversion. Hematologic/Lymphatic: Negative. Allergic/Immunologic: Negative for recurrent infections. Musculoskeletal: Positive for stiffness. Negative for myalgias, joint swelling and fracture. Endocrine: Negative for polydipsia, polyphagia, polyuria and Cushingoid appearance. Cardiovascular: Negative. Neurological: Negative. Skin: Negative for dry skin, urticaria, blister and raised rash. Allergies Allergies Allergen Reactions ??? Penicillins Anaphylaxis ??? Iftikhar Inhibitors Cough ??? Clindamycin Hcl Rash ??? Allergenic Extracts Birch and Nut Trees, cats, dust, pollen bird feathers ??? Ibuprofen ??? Sulfamethoxazole-Trimethoprim Medications Current Outpatient Medications on File Prior to Visit Medication Sig Dispense Refill ??? darbepoetin cristy in polysorbat 10 mcg/0.4 mL Syringe Inject 300 mg as directed as needed. ??? insulin aspart U-100 (NovoLOG Flexpen U-100 Insulin) Insulin Pen Inject 50- 54 Units subcutaneously 3 times daily (with meals). ??? cyanocobalamin, Vitamin B-12, (Vitamin B-12) 100 mcg Tablet Take 100 mcg by mouth daily. ??? POLYETHYLENE GLYCOL 1000,BULK, MISC by [facility] [place].(Non-Drug; Combo Route) route as needed. ??? [DISCONTINUED] Baqsimi 3 mg/actuation [place], Non-Aerosol 3 mg by Nasal route as needed (in the event of severe hypoglycemia). May administer 2nd dose if no response to first dose after 15 minutes 2each 5 ??? [DISCONTINUED] glucagon HCL (Glucagon, HCl, Emergency Kit) 1 mg Recon Soln Inject 1 mg as directed as needed (For severe hypoglycemia, may repeat in 15-20 minutes if needed). 2 each 6 ??? Prograf 1 mg Capsule Take 1 capsule by mouth daily. Kidney transplant 02/29/2008 dx code Z94.0 D/Cdate 03/11/2008 30 capsule 11 ??? Prograf 0.5 mg Capsule Take 1 capsule by mouth nightly. Kidney transplant 02/29/2008 dx code Z94.0D/C date 03/11/2008 (Patient not taking: Reported on 10/28/2020) 30 capsule 11 ??? CellCept 250 mg [...] [facility] [place].(Non-Drug; Combo Route) route. Sensor, store person andtransmitter ??? calciTRIoL (Rocaltrol) 0.5 mcg Capsule Take 1 capsule by mouth daily. (Patient not taking: Reported on 10/28/2020) 90 capsule 3 ??? calciTRIoL (Rocaltrol) 0.5 mcg Capsule Take 1 capsule by mouth daily. 90 capsule 3 ??? metoprolol succinate XL (Toprol-XL) 50 mg Tablet Sustained Release 24 hr Take 1 tablet by mouth daily. 90 tablet 1 ??? amLODIPine (Norvasc) 10 mg Tablet Take 0.5 tablets by mouth daily. 90 tablet 3 ??? fluticasone propionate (FLONASE) 50 mcg/actuation [place], Suspension INSTILL 2 SPRAYS INTO EACH NOSTRIL ONCE A DAY NEEDED ??? triamcinolone (NASACORT or NASACORT OTC) 55 mcg Aerosol, [place] 2 sprays by Nasal route daily. (Patient [...] lungs daily. 1 ??? Miscellaneous [facility] [...] COPD (chronic obstructive pulmonary disease) J44.9 ??? Encounter for long-term (current) use of other medications Z79.899 ??? Aftercare following organ transplant Z48.298 ??? Persistent proteinuria R80.1 ??? Prophylactic immunotherapy Z29.8 ??? Chronic atrial fibrillation I48.20 ??? Anemia of chronic renal failure, stage 4 (severe) N18.4, D63.1 ??? Phantom limb pain G54.6 ??? PAF (paroxysmal atrial fibrillation) I48.0 ??? Hypervolemia E87.70 ??? Renal osteodystrophy N25.0 ??? 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 Renal tubular acidosis N25.89 SurgHX Past Surgical History: Procedure Laterality Date [...] BELOW-KNEE performed by HENNA GAMINO JR at [facility] MAIN OR ??? PRO LAP, APPENDECTOMY 06/16/2013 LAPAROSCOPIC APPENDECTOMY performed by Angel Mccann MD at [facility] MAIN OR ??? US RENAL TRANSPLANT LEFT Left 06/26/2019 US Renal Transplant Left 06/26/2019 [facility] RAD ULTRASOUND Physical Examination: BP 138/55 Pulse 68 Temp 36.8 ??C (98.2 ??F) (Temporal) Ht 194.3 cm (6' 4.5) Wt 131.5 kg (290 lb) Comment: subtracted for prothesis SpO2 100% BMI 34.84 kg/m?? Physical Exam Constitutional: General: He is not in acute distress. Appearance: Normal appearance. He is not ill-appearing, toxic-appearing or diaphoretic. HENT: Head: Normocephalic and atraumatic. Right Ear: External ear normal. Left Ear: External ear normal. Nose: Nose normal. Eyes: General: Right eye: No discharge. Conjunctiva/sclera: Conjunctivae normal. Cardiovascular: Rate and Rhythm: Normal rate and regular rhythm. Heart sounds: Normal heart sounds. No friction rub. No gallop. Pulmonary: Effort: Pulmonary effort is normal. Breath sounds: Normal breath sounds. No wheezing, rhonchi or rales. Abdominal: Palpations: Abdomen is soft. Tenderness: There is no abdominal tenderness. There is no guarding. Musculoskeletal: General: No swelling, tenderness, deformity or signs of injury. Neurological: Mental Status: He is alert and oriented to person, place, and time. Psychiatric: Mood and Affect: Mood normal. Behavior: Behavior normal. Thought Content: Thought content normal. Judgment: Judgment normal. Musculoskeletal: No peripheral synovitis erythema warmth noted upper or lower extremities No significant tenderness or range of motion of the small joints of his hands Impression/Recommendations : Leroy Torres is a 65 y.o. male who presents today with osteoarthritis patient with no features by exam or history suggestive of inflammatory arthritis using conservative measures to control his arthralgias he thinks he is doing good enough at this point. He desires no specific intervention we willsee him again in follow-up in a as needed basis. Patient and in agreement with this plan. documented in this encounter Plan of Treatment Upcoming Encounters Date Type Specialty Care Team Description 05/26/2022 Office Visit Otolaryngology Ricardo Panda PA [facility] [address] [place] [address] (Oscar escobedo) 06/02/2022 Infusion Hematology and Oncology 06/16/2022 Infusion Hematology and Oncology 06/21/2022 Office Visit Neurology Tyler Rojas MD [facility] Dr [address] [place] [address] 6-[address]22 (Wo rk) 06/30/2022 Infusion Hematology and Oncology 07/14/2022 Infusion Hematology and Oncology 07/28/2022 Infusion Hematology and Oncology 08/11/2022 Infusion Hematology and Oncology 11/04/2022 Office Visit Rheumatology Dante Freedman PA [facility] RHEUMATOLOGY [place], [place] [address] (Wo rk) documented as of this encounter Visit Diagnoses Diagnosis Osteoarthritis of multiple joints, unspe cified osteoarthritis type - Primary Immunosuppression Unspecified disorder of immune mechanism H/O kidney transplant Kidney replaced by transplant Paresthesia of both hands documented in this encounter Care Teams Go Cart Mechanic Relationship Specialty Start Date End Date Violetta Sanford MD PCP - General 04/02/14 [address] [place] [address] documented as of this encounter
--- OUTSIDE RECORDS SUMMARY | 2022-05-24 10:51 | XMS_ITS | Encounter Summary ---
:1955 Author Organization [facility] [place] [address] Care Team Providers Name Role Phone Violetta Sanford MD Primary Care Provider Encounter Details Date Type Department Care Team Description 10/18/2019 Notes Only Cardiology at [facility] J Luis Quispe MD [facility] [place] [address] CARDIOLOGY DEPT. [phone] [place], [place] [address] (Wo rk) Social History Tobacco [...] Progress Notes J Luis Quispe MD - 10/18/2019 1:34 PM EDT Clinical Update Results of Zio from last month reviewed - no AF. Plan to continue without anticoagulation at this time due to multiple issues mentioned in my most recent office note. Will review again with the patientat the end of October which may be a virtual visit at that time. J Luis Quispe MD ?? Zio Aug 2019: Conclusion(s): 1. Predominant rhythm is sinus. 2. No reported symptoms. 3. No atrial fibrillation is observed during this abbreviated recording. 4. Nonsustained ventricular tachycardia is observed. ?? From my last clinical note: 64 year old male with diabetes and multiple complications including: bilateral BKA, ESRD s/p kidney transplant in 2007 referred to cardiology clinic for manufacturing helper management of PAF. He is in NSR today.He has no significant history of CAD. He has had a prior stress echo that was normal in 2014. He denies any history of ME. ?? Apparently during a hospitalization for PNA and hyperkalemia, he was reported to have had some paroxysmal AF. He is essentially asymptomatic with this - although he does state that occasionally he has some palpitations. His resting pulse today was around 90 bpm. ?? He is at risk for falls and hitting his head and the decision to add full anticoagulation is not made easily. I thought we would start with a screening zio and go from there. ?? -ok to stop amlodipine. He reports new constipation after taking this medication -restart long acting Bblocker. May help BP, HR (NSR), and possibly tremor as well. Met sux 25 to start. -zio monitor documented in this encounter Plan of Treatment Upcoming Encounters Date Type Specialty Care Team Description 05/26/2022 Office Visit Otolaryngology Ricardo Panda PA [facility] [address] [place] [address] (Oscar escobedo) 06/02/2022 Infusion Hematology and Oncology 06/16/2022 Infusion Hematology and Oncology 06/21/2022 Office Visit Neurology Tyler Rojas MD [facility] Dr [address] [place] [phone] (Oscar escobedo) 06/30/2022 Infusion Hematology and Oncology 07/14/2022 Infusion Hematology and Oncology 07/28/2022 Infusion Hematology and Oncology 08/11/2022 Infusion Hematology and Oncology 11/04/2022 Office Visit Rheumatology Dante Freedman PA [facility] RHEUMATOLOGY [place], [place] [address] (Wo rk) documented as of this encounter Visit Diagnoses Not on filedocumented in this encounter Care Teams Kitchen Porter Relationship Specialty Start Date End Date Violetta Sanford MD PCP - General 04/02/14 [address] [place] [address] documented as of this encounter
--- OUTSIDE RECORDS SUMMARY | 2022-05-24 10:51 | XMS_ITS | Encounter Summary ---
:1955 Author Organization [place] [address] Care Team Providers Name Role Phone Violetta Sanford MD Primary Care Provider Reason for Visit Consultation (Routine) - Closed Specialty Diagnoses / Procedures Referred By Contact Refer red To Contact Endocrinology Diagnoses Type 2 diabetes mellitus with hyperglycemia, with long-term current use of insulin Donell Hernandez MD Kline, Erika L, RD [facility] [place] [address] [place] [id number] Referral ID Status Reason Start Date Expiration Date Visits V isits Requested Authorized [id number] Closed Consult, 09/12/2019 09/11/2020 1 1 Test & Treat Encounter Details Date Type Department Care Team Description 09/20/2019 Office Visit Endocrinology at [facility] Ivett Marques, Type 2 [address] [facility] [address] mellitus with [facility] hyperglycemia, [place] [address] long-term current use [phone] [place] [address] of insulin Social History Tobacco Use Types Packs/Day Years [...] - Inhaled Oxygen Concentration - - Weight 145.2 kg (320 lb) 09/20/2019 10:51 AM EST Height 193 cm (6' 4) 09/20/2019 10:51 AM EST Body Mass Index 38.95 09/20/2019 10:51 AM EST documented in this encounter Patient Instructions Patient InstructionsIvett Shah RD - 09/20/2019 11:00 AM EST 1. Call a distributor to get your to get your Selo Reservae 14-day continuous glucose monitoring system. documented in this encounter Progress Notes Ivett Shah RD - 09/20/2019 11:00 AM EST [facility] Diabetes Education and Nutrition Services: Continuous Glucose Monitors Choice Exploration Visit Leroy Torres is here today to explore choices for a continuous glucose monitor, which their Endocrinology provider will write a prescription for. Current CGM Therapy: NEW to CGM Diabetes Regimen: MDI Therapy: yes Levemir: 60 units BID Humalo-55 units per meal CF 1:4 Other injectable: Victoza 1.8 mg daily Oral Therapy: n/a Insulin Pump Therapy: n/a The following continuous glucose monitoring systems (CGMS) and their unique features were discussed in greater detail than what exists in this chart. The CGM integrated with pump if applicable also discussed in greater detail than what exists in this chart. Demo devices were shown to the patient to aid with education on features. Brochures were provided if requested by the patient. If pt is new to CGM a general overview of how CGM is used to monitor glucose levels and make treatment decisions is provided. Prep Person Model Name Alerts: Pump Integration Parts: Fingerstick Calibrations? [employer] Guardian Connect Yes: low, high, predictive low up to 60 min in advance No, stand alone version Apple Iphone: Yogiyo Connect Jarrell, Sugar IQ Jarrell Sensors: 7 day wear; Box of 5 Transmitter: rechargeable/reuseable Oval tape: pack of 10 come with sensors Reusable sensor newspaper inserter Yes Every 12 hours minimum Medtronic Guardian Sensor (3) Yes: low, high Yes: Medtronic 630G, 670G Medtronic 630G or 670G Pump Sensors: 7 day wear; Box of 5 Transmitter: rechargeable/reuseable Oval tape: pack of 10 come with sensors Reusable sensor newspaper inserter Yes Every 12 hours minimum Dexcom G6 Yes: low, high, predictive low 20 min in advance for < 55 mg/dL Yes: Tandem T:slim x2 with Control IQ or Basal IQ Touchscreen open end spinning operator or Smartphone (Iphone or Android) or Tslimx2 pump Sensors: 10 day wear, Box of 3 Transmitter: reuseable x3 months One time use autoinserter Not required but option is there. If user forgets to enter sensor code, system will prompt for calibration after the 2 eddie warm up twice, then every 12 hours for the rest of the 10 day sensor session. Entering the code at the start of sensor session calibrates the sensor for the entirety of the session and not fingersticks are required. Flowers Freestyle Oc 14-Day No No, talks of integration with Omnipod Touchscreen reader Sensors: 14-day wear Sort of: the reader will recommend to check a fingerstick BG by displaying a magnifying glass icon with a drop of blood on the reader before making treatment decisions in some instances. Reviewed patients insurance and advised them how we can have their provider prescribe the device. Discussed if we have determined they need to use a distributor or DME company that they are responsiblefor contacting the DME company to get their order set up because this generates paperwork that will be sent to us for their provider to sign. We will not do this for them unless their are extenuating circumstances. Options for training on their new device discussed with them once they have the device in hand. Assessment: He has Medicare and therefore qualifies for a Freestyle Oc or Dexcom G6 device, so we focused discussion on those 2 options. Reuben had a fair understanding of the material discussed. Freestyle Oc will be a good fit for him as he does not like alerts/alarms and it is simpler to use than the Dexcom. I believe he had a Dexcom in the past and was not a fan of how it worked, so it didn't help him as much as it could have to mange his glucose levels. Plan: Freestyle Oc 14-Day CGMS to be prescribed by Donell Hernandez MD Use to CGM device to monitor glucose levels and make insulin treatment decisions. Ivett Shah, MS, RDN, LD Registered Dietitian Intercell Connector Placer Supervisor Fishing [facility] 60 minutes of face to face diabetes education and counseling provided regarding continuous glucose monitoring therapy and devices. documented in this encounter Plan of Treatment Upcoming Encounters Date Type Specialty Care Team Description 05/26/2022 Office Visit Otolaryngology Ricardo Panda PA [facility] [address] [place], [place] [address] (Wo rk) 06/02/2022 Infusion Hematology and Oncology 06/16/2022 Infusion Hematology and Oncology 06/21/2022 Office Visit Neurology Tyler Rojas MD [facility] Neurology [place], [place] [phone] (Wo rk) 06/30/2022 Infusion Hematology and Oncology 07/14/2022 Infusion Hematology and Oncology 07/28/2022 Infusion Hematology and Oncology 08/11/2022 Infusion Hematology and Oncology 11/04/2022 Office Visit Rheumatology Dante Freedman PA [facility] RHEUMATOLOG[facility] [place], [place] [address] (Wo rk) Scheduled Referrals Name Type Priority Associated Diagnoses Order S chedule Referral to Outpatient Referral Routine Type 2 diabetes Order ed: Diabetic Education mellitus with 09/12/19 20 hyperglycemia, with long-term current use of insulin documented as of this encounter Visit Diagnoses Diagnosis Type 2 diabetes mellitus with hyperglyce maki, with long-term current use of insulin documented in this encounter Care Teams Account Receivable Associate Relationship Specialty Start Date End Date Violetta Sanford MD PCP - General 04/02/14 [address] [place] [address] (work) documented as of this encounter
--- OUTSIDE RECORDS SUMMARY | 2022-05-24 10:51 | XMS_ITS | Encounter Summary ---
:1955 Author Organization [facility] [place] [address] Care Team Providers Name Role Phone Violetta Sanford MD Primary Care Provider Encounter Details Date Type Department Care Team Description 08/21/2020 Notes Only Solid Organ Transpla nt at [facility] [place] [address] Social History Tobacco Use Types Packs/Day [...] this encounter Progress Notes Awa Calderon - 08/21/2020 1:43 PM EST Transplant Juvenile Detention Officer Note: Received PA request for Prograf, initiated by Pharmacy. Per discussion and chart review, found that patient dropped his AARP Medicare Advantage Plan and reverted to traditional Medicare A, B, D ([place]) and [place] supplement plan N. Immunos are covered under Medicare B as he had Medicare at the time of his transplant. Advised Pharmacy of current insurance information. Attempted several calls to patient to review the above information, left requesting he call the office. He will need to choose a [facility] or [facility] nearest his home for future fills of brand Prograf as Pharmacy will not continue to fill Brand under Medicare B coverage. documented in this encounter Plan of Treatment Upcoming Encounters Date Type Specialty Care Team Description 05/26/2022 Office Visit Otolaryngology Ricardo Panda PA [facility] [place] [address] (Wo rk) 06/02/2022 Infusion Hematology and Oncology 06/16/2022 Infusion Hematology and Oncology 06/21/2022 Office Visit Neurology Tyler Rojas MD [facility] Neurology [place], [place] [phone] (Wo rk) 06/30/2022 Infusion Hematology and Oncology 07/14/2022 Infusion Hematology and Oncology 07/28/2022 Infusion Hematology and Oncology 08/11/2022 Infusion Hematology and Oncology 11/04/2022 Office Visit Rheumatology Dante Freedman PA [facility] RHEUMATOLOGY [place], [place] [address] (Wo rk) documented as of this encounter Visit Diagnoses Not on filedocumented in this encounter Care Teams Recreation Therapy Aides Teacher Relationship Specialty Start Date End Date Violetta Sanford MD PCP - General 04/02/14 [address] [place] [address] documented as of this encounter
--- OUTSIDE RECORDS SUMMARY | 2022-05-24 10:51 | XMS_ITS | Encounter Summary ---
:1955 Author Organization [facility] [place] [address] Care Team Providers Name Role Phone Violetta Sanford MD Primary Care Provider Reason for Visit Reason Onset Date Comments Pump/sensor 10/15/2019 Encounter Details Date Type Department Care Team Description 10/15/2019 Telephone Endocrinology at [facility] Leny Kohler Pump/[place] [address] Social History Tobacco Use Types Packs/Day [...] Notes Telephone Encounter - Leny Morales - 10/19/2019 10:04 AM EDT Confirmed 10/17 Telephone Encounter - Leny Morales - 10/15/2019 8:58 AM EDT Doctor Order received from [facility]. Filled out. Office note printed Dr. Hernandez will sign. I will fax. documented in this encounter Plan of Treatment Upcoming Encounters Date Type Specialty Care Team Description 05/26/2022 Office Visit Otolaryngology Ricardo Panda PA [facility] [address] [place], [place] [address] (Wo rk) 06/02/2022 Infusion Hematology and Oncology 06/16/2022 Infusion Hematology and Oncology 06/21/2022 Office Visit Neurology Tyler Rojas MD [facility] Neurology [place], [place] [phone] (Wo rk) 06/30/2022 Infusion Hematology and Oncology 07/14/2022 Infusion Hematology and Oncology 07/28/2022 Infusion Hematology and Oncology 08/11/2022 Infusion Hematology and Oncology 11/04/2022 Office Visit Rheumatology Dante Freedman PA [facility] RHEUMAT[facility] [place], [place] [address] (Wo rk) documented as of this encounter Visit Diagnoses Not on filedocumented in this encounter Care Teams Sourcing Manager Relationship Specialty Start Date End Date Violetta Sanford MD PCP - General 04/02/14 [address] [place] [address] documented as of this encounter
--- OUTSIDE RECORDS SUMMARY | 2022-05-24 10:51 | XMS_ITS | Encounter Summary ---
:1955 Author Organization [facility] [place] [address] Care Team Providers Name Role Phone Violetta Sanford MD Primary Care Provider Reason for Visit Reason Onset Date Comments Medication Refill 07/24/2020 Encounter Details Date Type Department Care Team Description 07/24/2020 Refill Cardiology at [facility] J Luis Quispe MD Medication Refill [facility] [place] [address] CARDIOLOGY DEPT. [phone] [place], [place] [address] (Wo rk) Social History Tobacco [...] this encounter Miscellaneous Notes Telephone Encounter - Jen Garrett RN - 07/24/2020 3:05 PM EST JINA: 11/15/19 Per assessment and Plan: BP meds include: -amlodipine 10 mg -hydralazine [...] 50 mg and possibly 100 if needed. ?? Follow-up: 6 months with telehealth visit. Next f/u visit scheduled for: not scheduled at this time. Recall in chart from April. Will route note to schedulers as well. Jen Garrett mercury recoverer [facility] at [facility] [id number] documented in this encounter Plan of Treatment Upcoming Encounters Date Type Specialty Care Team Description 05/26/2022 Office Visit Otolaryngology Ricardo Panda PA [facility] [address] [place], [place] [address] (Wo rk) 06/02/2022 Infusion Hematology and Oncology 06/16/2022 Infusion Hematology and Oncology 06/21/2022 Office Visit Neurology Tyler Rojas MD [facility] Neurology [place], [place] [phone] (Wo rk) 06/30/2022 Infusion Hematology and Oncology 07/14/2022 Infusion Hematology and Oncology 07/28/2022 Infusion Hematology and Oncology 08/11/2022 Infusion Hematology and Oncology 11/04/2022 Office Visit Rheumatology Dante Freedman PA [facility] RHEUMATOLOGY [place], [place] [address] (Wo rk) documented as of this encounter Visit Diagnoses Diagnosis Chronic atrial fibrillation Atrial fibrillation PAF (paroxysmal atrial fibrillation) Atrial fibrillation documented in this encounter Care Teams Building Stonecutter Relationship Specialty Start Date End Date Violetta Sanford MD PCP - General 04/02/14 [facility] [address] [place] [address] documented as of this encounter
--- OUTSIDE RECORDS SUMMARY | 2022-05-24 10:51 | XMS_ITS | Encounter Summary ---
:1955 Author Organization [facility] [place] [address] Care Team Providers Name Role Phone Violetta Sanford MD Primary Care Provider Reason for Visit Reason Onset Date Comments Pump/sensor 07/07/2020 Encounter Details Date Type Department Care Team Description 07/07/2020 Telephone Endocrinology at [facility] C Leny Morales Pump/[place] [address] Social History Tobacco Use Types Packs/Day [...] Notes Telephone Encounter - Leny Morales - 07/07/2020 8:01 AM EST Documentation request received from [facility] [email or web address]. Office note routed Confirmed 07/07 documented in this encounter Plan of Treatment Upcoming Encounters Date Type Specialty Care Team Description 05/26/2022 Office Visit Otolaryngology Ricardo Panda PA [facility] [address] [place] [address] (Wo rk) 06/02/2022 Infusion Hematology and Oncology 06/16/2022 Infusion Hematology and Oncology 06/21/2022 Office Visit Neurology Tyler Rojas MD [facility] Neurology [place], [place] [phone] (Wo rk) 06/30/2022 Infusion Hematology and Oncology 07/14/2022 Infusion Hematology and Oncology 07/28/2022 Infusion Hematology and Oncology 08/11/2022 Infusion Hematology and Oncology 11/04/2022 Office Visit Rheumatology Dante Freedman PA [facility] RHEUMATOLOGY [place], [place] [address] (Wo rk) documented as of this encounter Visit Diagnoses Not on filedocumented in this encounter Care Teams Credit Charge Authorizer Relationship Specialty Start Date End Date Violetta Sanford MD PCP - General 04/02/14 [address] [place] [address] documented as of this encounter
--- OUTSIDE RECORDS SUMMARY | 2022-05-24 10:51 | XMS_ITS | Encounter Summary ---
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 [address] [place] [address] Phone: Fax: Referral ID Status Reason Start Date Expiration Date Visits V isits Requested Authorized [id number] Closed Pain Consult 08/29/2019 08/28/2020 1 1 Encounter Details Date Type Department Care Team Description 09/20/2019 Office Visit Pain and Spine Center Shira Miller Ph antelver limb pain at [facility] BIOINFORMATICS PROGRAMMER [facility] [place] [address] [place] [address] [phone] (Wo rk) Social History Tobacco Use Types [...] Sign Reading Time Taken Comments Blood Pressure 164/70 09/20/2019 2:32 PM EST Pulse 76 09/20/2019 2:32 PM EST Temperature - - Respiratory Rate - - Oxygen Saturation 96% 09/20/2019 2:32 PM EST Inhaled Oxygen Concentration - - Weight 149.2 kg (329 lb) 09/20/2019 2:32 PM EST Height 193 cm (6' 4) 09/20/2019 2:32 PM EST Body Mass Index 40.05 09/20/2019 2:32 PM EST documented in this encounter Patient Instructions Patient InstructionsCrShira lee APRN - 09/20/2019 2:30 PM EST 1) Recommend discussing back pain with your primary care provider and consideration for aqua therapy 2) Recommend weight reduction for improvement in back pain and ambulation 3) Tylenol 1,000 mg every 6 hours as needed for pain - do no exceed 4,000 mg a day 4) Gabapentin 900 mg - decrease gabapentin as follows Days 1-5 gabapentin 600 mg in AM, gabapentin 900 midday and gabapentin 900 mg in PM Days 6-11 gabapentin 600 mg in AM, gabapentin 600 midday and gabapentin 900 mg in PM Days 12-16 gabapentin 600 mg three times a day Days 17-21 gabapentin 300 mg in AM, gabapentin 600 midday and gabapentin 600 mg in PM Days 22-26 gabapentin 300 mg in AM, gabapentin 300 midday and gabapentin 600 mg in PM Days 27-31 gabapentin 300 mg three times a day Days 32-36 gabapentin 300 mg twice a day Days 37-41 gabapentin 300 mg once a day then stop 5) Follow-up in 7-8 weeks or sooner as needed documented in this encounter Progress Notes Shira Miller APRN - 09/20/2019 2:30 PM EST [facility] CONSULTATION Date of Consultation: September 20, 2019 I am seeing Mr. Dailey at the request of Donell Hernandez for my opinion and recommendations regarding phantom limb pain. Chief Complaint: Chief Complaint Patient presents with ??? Pain Management HPI: Subjective Leroy Dailey is a 64 y.o. male who presents today for consult for pain management evaluation forphantom limb(s) pain s/p consuelo BKA. He states that a few years after his left leg amputation it felt like he had burning in between histoes on on his left foot even though he does not have any toes. After his right BKA he also started to have pain in his right foot and toes and feet. He continues to have pains in his lower extremitiesand last a few days a few times a month. Approximately twice a month he has episodes that last for afew days. Average pain level can be 7-8/10 for about 6-7 days out of the month. He has been maintained on gabapentin for some time for this pain and is not sure that is helping at all with his pain. He has seen by Dr. Rojas in neurology for this issue in the past. Onset: chronic Location: bilateral lowe extremities below the legs Duration: > 5 years Characteristics: burning, stabbing and tingling Timing: intermittently Severity: 0/10 now Average pain in past week: 8/10 Best pain in the past week: 0/10 Worst pain in the past week: 8/10 Aggravating factors: nothing in particular Relieving factors: Tylenol gives some benefit Has had back pain in the past, still has back pain with walking and activities. myD-H Pain 09/20/2019 VR12 - Physical Summary Component 27.06 VR12 - Mental Component Summary 56.85 MODEMS Expectation 0 Family History of Substance Abuse (Male) 0 Personal History of Substance Abuse(Male) 0 Age 0 History of Preadolescent sexual abuse(Male) 0 Psychological Disease 0 ORT Total Scores (Male) 0 BPI Severity Score Incomplete BPI Interference Score Incomplete CURRENT TREATMENTS/INTERVENTIONS - Tylenol 1,000 mg - has taken up to 6 times a day when he is having severe pain and does feel that this gives him some benefit pain goes down to 3/10 - gabapentin 900 mg three times a day - unsure if this is helping PAST TREATMENTS/INTERVENTIONS - none that he can recall PROCEDURES/SURGERY BKA R 2011 BKA L ~ EVALUATIONS: TYPE DATE Orthopaedics Dr. Estiven Roy Transplant Dr. Garnett Endocrinology Dr. Hernandez Neurology Dr. Rojas Cardiology Dr. Quispe ACTIVITY LEVEL: Independent in ADLs Exercise: hardly nothing Activities that are limited by Pain: he states that when his pain is severe he avoids going out walking and has difficulty sleeping at times due to the pain He states that the pain in is back is the most limiting in regards to his walking and his activity. SOCIAL HISTORY: Lives with his Maureen Social History Socioeconomic History ??? Marital status: Spouse name: Not on file ??? Number of children: Not on file ??? Years of education: Not on file ??? Highest education level: Not on file Occupational History ??? Not on file Social Needs ??? Financial resource strain: Not on file ??? Food insecurity Worry: Not on file Inability: Not on file ??? Transportation needs Medical: Not on file Non-medical: Not on file Tobacco Use ??? Smoking status: Former Smoker Packs/day: 2.00 Years: 20.00 Pack years: 40.00 Types: Cigarettes Last attempt to quit: 01/19/1993 Years since quittin.6 ??? Smokeless tobacco: Never Used Substance and Sexual Activity ??? Alcohol use: Yes Comment: Once a year ??? Drug use: No ??? Sexual activity: Not on file Comment: deferred Lifestyle ??? Physical activity Days per week: Not on file Minutes per session: Not on file ??? Stress: Not on file Relationships ??? Social connections Talks on phone: Not on file Gets together: Not on file Attends pentecostal service: Not on file Active member of club or organization: Not on file Attends meetings of clubs or organizations: Not on file Relationship status: Not on file ??? Intimate partner violence Fear of current or ex partner: Not on file Emotionally abused: Not on file Physically abused: Not on file Forced sexual activity: Not on file Other Topics Concern ??? Not on file Social History Narrative ??? Not on file Aberrant behaviors/Risk Assessment: Nicotine- none Alcohol- none since his kidney transplant Other drugs: none FAMILY HISTORY: No family history on file. PAST MEDICAL HISTORY: Patient Active Problem List Diagnosis Code ??? Amputee, below knee, L S88.119A ??? 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ifestations E11.29 ??? Diabetes mellitus with neuropathy E11.40 ??? Charcot's arthropathy, diabetic, R E11.610 ??? Injury, other and unspecified, unspecified site T14.90XA ??? Tremor, essential G25.0 ??? Sensorineural hearing loss, bilateral H90.3 ??? Delayed wound healing T14.8XXD ??? Amputee, below knee S88.119A ??? History of renal transplant Z94.0 ??? Immunosuppression D89.9 ??? Transplanted kidney Z94.0 ?Appendicitis, sp appendectomy 06/16/13 K37 ??? Intermittent fever of unknown origin R50.9 ??? Tremor/tics R25.1 ??? Hyperglycemia R73.9 ??? Hydrocele N43.3 ??? Lower urinary tract symptoms R39.9 ??? Hyperlipidemia E78.5 ??? Reflux esophagitis K21.0 ??? COPD (chronic obstructive pulmonary disease) J44.9 ??? Encounter for long-term (current) use of other medications Z79.899 ??? Aftercare following organ transplant Z48.298 ??? Persistent proteinuria R80.1 ??? Prophylactic immunotherapy Z29.8 ??? Chronic atrial fibrillation I48.20 ??? CKD (chronic kidney disease) stage 4, GFR 15-29 ml/min N18.4 ??? Phantom limb pain G54.6 PAST SURGICAL HISTORY: Past Surgical History: Procedure Laterality Date ??? [...] TIB/FIB 06/21/2011 ??AMPUTATION, BELOW-KNEE performed by HENNA ROY JR at [facility] MAIN OR ??? PRO LAP, APPENDECTOMY 06/16/2013 LAPAROSCOPIC APPENDECTOMY performed by Angel Mccann MD at [facility] MAIN OR ??? US RENAL TRANSPLANT LEFT Left 06/26/2019 US Renal Transplant Left 06/26/2019 [facility] RAD ULTRASOUND ALLERGIES: Penicillins; Iftikhar inhibitors; Clindamycin hcl; Allergenic extracts; Ibuprofen; Levemir [insulin detemir]; and Sulfamethoxazole-trimethoprim MEDICATIONS: Medications 09/20/19 9632 Medication Sig Taking? fluticasone propionate (FLONASE) 50 mcg/actuation [place], Suspension INSTILL 2 SPRAYS INTO EACH NOSTRIL ONCE A DAY NEEDED Yes triamcinolone (NASACORT or NASACORT OTC) 55 mcg Aerosol, [place] 2 sprays by Nasal route daily. Yes albuterol (PROVENTIL) 2.5 mg /3 mL (0.083 %) Solution for Nebulization Take 3 mLs by nebulization every 4 hours as needed for Wheezing. Yes metoprolol succinate XL (Toprol-XL) 25 mg Tablet Sustained Release 24 hr Take 1 tablet by mouth daily. Yes guaiFENesin 200 mg Tablet Take 200 mg by mouth daily. Yes multivitamin with minerals Tablet Take 1 tablet by mouth Daily. Yes primidone (MYSOLINE) 50 mg Tablet Take 1 tablet by mouth 4 times daily. Start 1/2 tablet at night and increase as directed Yes PROGRAF 1 mg Capsule Take 1 capsule by mouth daily. Kidney transplant 02/29/2008 Z94.0 Yes PROGRAF 0.5 mg Capsule Take 1 capsule by mouth every evening. Kidney transplant 02/29/2008 Z94.0 Yes CELLCEPT 250 mg Capsule TAKE TWO CAPSULES BY MOUTH TWICE A DAY Yes gabapentin (NEURONTIN) 300 mg Capsule TAKE 3 CAPSULES BY MOUTH 3 TIMES DAILY Yes LEVEMIR FLEXTOUCH U-100 INSULN Insulin Pen Inject 50-80 Units subcutaneously 2 times daily. ICD 10 Code: E11.40 Yes cholecalciferol, Vitamin D3, 2,000 unit Tablet Take 1 tablet by mouth daily. Yes liraglutide (VICTOZA 3-FAZAL) 0.6 mg/0.1 mL (18 mg/3 mL) Pen Injector Inject 1.2 mg subcutaneously daily. Yes insulin needles, disposable, 29 gauge x 1/2 Needle 1 Device by [facility]Non-Drug; Combo Route) route 3times daily. [...] needed for Pain. Reported on 08/06/2016 Yes ipratropium-albuterol (DUONEB) 0.5 mg-3 mg(2.5 mg base)/3 mL Solution for Nebulization Take 3 mLs bynebulization 2 times daily. Yes STIOLTO RESPIMAT 2.5-2.5 mcg/actuation Mist Inhale 2 puffs into the lungs daily. Yes Miscellaneous Medical Supply [facility] 4 Devices by [facility]Non-Drug; Combo Route) route daily. Rubber sheath for leg prosthesis (2 pairs) Yes VENTOLIN HFA 90 mcg/actuation HFA Aerosol Inhaler Inhale 2 puffs into the lungs as needed. Yes Insulin Lispro (HUMALOG) 100 unit/mL Insulin Pen Inject 30-40 Units subcutaneously 4 times daily. Yes BD INSULIN PEN NEEDLE UF ORIG 29 gauge x 1/2 Needle Yes aspirin 81 mg EC tablet Take 81 mg by mouth daily. Yes montelukast (SINGULAIR) 10 mg tablet Take 10 mg by mouth daily. Yes ROS: Review of Systems Constitutional: Negative for chills and fever. HENT: Negative for ear pain. Eyes: Negative for pain. Respiratory: Negative for cough and choking. Allergic/Immunologic: Negative. Psychiatric/Behavioral: Negative. PHYSICAL EXAM: BP 164/70 Pulse 76 Ht 193 cm (6' 4) Wt (!) 149.2 kg (329 lb) SpO2 96% BMI 40.05 kg/m?? Physical Exam Constitutional: General: He is not in acute distress. Appearance: He is obese. He is not toxic-appearing. HENT: Head: Normocephalic. Nose: Nose normal. Eyes: General: Right eye: No discharge. Left eye: No discharge. Conjunctiva/sclera: Conjunctivae normal. Musculoskeletal: Comments: Seated in wheelchair, able to stand independently with bilateral prosthetics. Skin: General: Skin is warm and dry. Neurological: Mental Status: He is alert and oriented to person, place, and time. Comments: No hyperalgesia or allodynia of bilateral stumps. Psychiatric: Attention and Perception: Attention normal. Mood and Affect: Mood normal. LABS/DX RESULTS: Results for LEROY DAILEY ( ) Ref. Range 07/16/2019 00:00 WBC Unknown 7.61 RBC Unknown 3.59 (L) Hemoglobin Unknown 10.8 (L) Hematocrit Unknown 34.8 (L) MCV Unknown 96.9 (H) MCH Unknown 30.1 MCHC Unknown 31.0 (L) RDWCV Unknown 13.8 Platelets Unknown 209 MPV Unknown 8.8 Sodium Unknown 137 Potassium Unknown 5.3 (H) Chloride Unknown 106 CO2 Unknown 23 Anion Gap Unknown 8 BUN Unknown 40 (H) Creatinine Unknown 2.37 (H) eGFR Unknown 27.62 Calcium Unknown 8.9 Magnesium Latest Units: mg/dL 1.4 (L) Phosphorus Unknown 3.7 Uric Acid Unknown 7.6 (H) Glucose Lvl Unknown 250 (H) Total Protein Unknown 7.6 Albumin Unknown 2.9 (L) Total Bilirubin Unknown 0.5 Alk Phos Unknown 145 (H) AST Unknown 14 (L) ALT Unknown 24 Chol, Total Unknown 102 ASSESSMENT: Assessment Encounter Diagnosis Name Primary? Phantom limb pain 64 yo male with intermittent phantom limb pain for which he has been seen by Dr. Rojas in neurology. Patient stated he was told that he did not need to see Dr. Rojas again. Currently taking gabapentin 900 mg three times a day and he does not feel that this helps his pain. He is having pain 6-7 days our of 30 days and can get pain decreased with acetaminophen though some days he is taking 6,000 mg acetaminophen a day. Patient would like to trial a taper of gabapentin as he does not feel like this is helping. I feel it is reasonable to taper off gabapentin and closely monitor if his pain. If he has no worsening in pain with taper off gabapentin then medication can be stopped. Patient states he is not prescribed thisfor any other issues. Discussed other treatment options for phantom limb pain such as Lyrica and Amitriptyline. Both of this medications could be used on days that he is having pain and ricardo not necessarily need to be used round the clock. There is limited research to support the use of TENs unit therapy. Patient is unsure the degree to which his phantom limb pain is limiting his function and sleep. As this only occurs less than 7 days out of the month. As he tapers on gabapentin he will also be paying attention to his limitations in activity and function due to his phantom pain. We discussed that if he is able to control this well with Tylenol that additional medications might not be needed. If he ishaving continued limitations with function and sleep due to phantom limb pain will plan on adding additional medication(s) and TENS unit therapy. We will take into consideration that patient is a kidney transplant and all medications should be dosed appropriately for this. At this point I would not consider him for mirror therapy as both lower extremities are affected. Future consideration for neuromodulation pending response to above. When discussing patient's function at visit today it seems his low back pain is more limiting regarding his ambulation activity. I encouraged him to discuss his low back pain with his primary care provider and I feel that he would benefit from going to aqua therapy and engaging in more physical activity. I also encouraged him to work on weight reduction. I will plan to see the patient back after he is tapered off his gabapentin as directed and would be happy to see him sooner as needed. PLAN: 1) Gabapentin downward titration given to patient as follows: Days 1-5 gabapentin 600 mg in AM, gabapentin 900 midday and gabapentin 900 mg in PM Days 6-11 gabapentin 600 mg in AM, gabapentin 600 midday and gabapentin 900 mg in PM Days 12-16 gabapentin 600 mg three times a day Days 17-21 gabapentin 300 mg in AM, gabapentin 600 midday and gabapentin 600 mg in PM Days 22- gabapentin 300 mg in AM, gabapentin 300 midday and gabapentin 600 mg in PM Days 27-31 gabapentin 300 mg three times a day Days 32-36 gabapentin 300 mg twice a day Days 37-41 gabapentin 300 mg once a day then stop 2) Tylenol 1,000 mg every 6 hours as needed for pain - not to exceed 4,000 mg a day 3) Recommend addressing back pain and physical therapy/ aqua therapy 4) Recommend weight reduction for improvement in back pain and ambulation 5) Follow-up in 7-8 weeks or sooner as needed Leroy Dailey had the opportunity to ask questions and indicated that all questions were answered to his satisfaction. Thank you for the opportunity to participate in Leroy Dailey's care. Thank you for this referral, Donell Hernandez MD [facility] [place] [address]. Shira Miller, MSN, INDUSTRIAL HYGIENE ENGINEER- C, BIOINFORMATICS PROGRAMMER Nurse Practitioner Pain Management Center [facility] [address] [place] [address] / [facility] documented in this encounter Plan of Treatment Upcoming Encounters Date Type Specialty Care Team Description 05/26/2022 Office Visit Otolaryngology Ricardo Panda PA [facility] [place], [place] [address] (Wo rk) 06/02/2022 Infusion Hematology and Oncology 06/16/2022 Infusion Hematology and Oncology 06/21/2022 Office Visit Neurology Tyler Rojas MD [facility] Neurology [place], [place] [phone] (Wo rk) 06/30/2022 Infusion Hematology and Oncology 07/14/2022 Infusion Hematology and Oncology 07/28/2022 Infusion Hematology and Oncology 08/11/2022 Infusion Hematology and Oncology 11/04/2022 Office Visit Rheumatology Datne Freedman PA [facility] RHEUMATOLOGY [place], [place] [address] (Wo rk) documented as of this encounter Visit Diagnoses Diagnosis Phantom limb pain Phantom limb (syndrome) documented in this encounter Care Teams Photograph Developer Relationship Specialty Start Date End Date Violetta Sanford MD PCP - General 04/02/14 [facility] [address] [place] [address] documented as of this encounter
--- OUTSIDE RECORDS SUMMARY | 2022-05-24 10:51 | XMS_ITS | Encounter Summary ---
:1955 Author Organization [facility] [place] [address] Care Team Providers Name Role Phone Violetta Sanford MD Primary Care Provider Encounter Details Date Type Department Care Team Description 08/06/2019 External Results Solid Organ Transplant Devin Garnett, [facility] [place] [address] TRANSPLANT SURGERY [phone] [place], [place] [address] (Wo rk) Social History Tobacco [...] PA [facility] [address] [place] [address] (Wo rk) 06/02/2022 Infusion Hematology and Oncology 06/16/2022 Infusion Hematology and Oncology 06/21/2022 Office Visit Neurology Tyler Rojas MD [facility] er Neurology [place], [place] [phone] (Wo rk) 06/30/2022 Infusion Hematology and Oncology 07/14/2022 Infusion Hematology and Oncology 07/28/2022 Infusion Hematology and Oncology 08/11/2022 Infusion Hematology and Oncology 11/04/2022 Office Visit Rheumatology Dante Freedman PA [facility] ER RHEUMATOLOGY [place], [place] [address] (Wo rk) documented as of this encounter Procedures Procedure Name Priority Date/Time Associated Diagnosis Comme nts LAB SCAN Routine 07/30/2019 Results for thi s procedure are in the resu lts section. documented in this encounter Results Scan Doc: Lab (07/30/2019) Narrative This result has an attachment that is no t available. Alejo Garnett MD MEDIA MGR SCAN EXT ORDR/RSLT documented in this encounter Visit Diagnoses Not on filedocumented in this encounter Care Teams Applied Anthropologist Relationship Specialty Start Date End Date Violetta Sanford MD PCP - General 04/02/14 [address] [place] [address] documented as of this encounter
--- OUTSIDE RECORDS SUMMARY | 2022-05-24 10:51 | XMS_ITS | Encounter Summary ---
:1955 Author Organization [facility] [place] [address] Care Team Providers Name Role Phone Violetta Sanford MD Primary Care Provider Encounter Details Date Type Department Care Team Description 03/17/2020 Telephone Solid Organ Transplant at Aisha Aceves [facility] James, [place] [address] Social History Tobacco Use Types Packs/Day Years [...] this encounter Miscellaneous Notes Telephone Encounter - Aisha Aceves LPN - 03/17/2020 9:59 AM EDT Called Leroy and advised that he is due for an annual appt with Dr. Garnett. Advised that we arerequesting that yearly labs are completed ahead of time and once we receive the lab results we can schedule for an annual appt with Dr. Garnett. Leroy states that he can complete his labs this week. Will fax over yearly lab orders to [facility] per Leroy's lab preference. Advised to call back kidney transplant clinic with any questions or updates. documented in this encounter Plan of Treatment Upcoming Encounters Date Type Specialty Care Team Description 05/26/2022 Office Visit Otolaryngology Ricardo Panda PA [facility] [place], [place] [address] (Wo rk) 06/02/2022 Infusion Hematology and Oncology 06/16/2022 Infusion Hematology and Oncology 06/21/2022 Office Visit Neurology Tyler Rojas MD [facility] Neurology [place], [place] [phone] (Wo rk) 06/30/2022 Infusion Hematology and Oncology 07/14/2022 Infusion Hematology and Oncology 07/28/2022 Infusion Hematology and Oncology 08/11/2022 Infusion Hematology and Oncology 11/04/2022 Office Visit Rheumatology Dante Freedman PA [facility] ER RHEUMATOLOGY [place], [place] [address] (Wo rk) documented as of this encounter Visit Diagnoses Not on filedocumented in this encounter Care Teams Endoscope Technician Relationship Specialty Start Date End Date Violetta Sanford MD PCP - General 04/02/14 [address] [place] [address] documented as of this encounter
--- OUTSIDE RECORDS SUMMARY | 2022-05-24 10:51 | XMS_ITS | Encounter Summary ---
:1955 Author Organization [facility] [place] [address] Care Team Providers Name Role Phone Violetta Sanford MD Primary Care Provider Reason for Visit Reason Onset Date Comments Medication Refill 08/22/2020 Encounter Details Date Type Department Care Team Description 08/22/2020 Refill Solid Organ Transplant at [facility] lucinda Desir, Transplanted kidney [facility] [place] [address] TRANSPLANT SURGERY [phone] [place], [place] [address] (Wo rk) Social History Tobacco [...] Panda PA [facility] [address] [place] [address] (Wo rk) 06/02/2022 Infusion Hematology and Oncology 06/16/2022 Infusion Hematology and Oncology 06/21/2022 Office Visit Neurology Tyler Rojas MD [facility] er Neurology [place], [place] [phone] (Wo rk) 06/30/2022 Infusion Hematology and Oncology 07/14/2022 Infusion Hematology and Oncology 07/28/2022 Infusion Hematology and Oncology 08/11/2022 Infusion Hematology and Oncology 11/04/2022 Office Visit Rheumatology Dante Freedman PA [facility] RHEUMATOLOGY [place], [place] [address] (Wo rk) documented as of this encounter Visit Diagnoses Diagnosis Transplanted kidney Kidney replaced by transplant documented in this encounter Care Teams Road Engineer Relationship Specialty Start Date End Date Violetta Sanford MD PCP - General 04/02/14 [facility] ALONDRA DAVID [facility] [address] [place] [address] documented as of this encounter
--- OUTSIDE RECORDS SUMMARY | 2022-05-24 10:51 | XMS_ITS | Encounter Summary ---
:1955 Author Organization [facility] [place] [address] Care Team Providers Name Role Phone Violetta Sanford MD Primary Care Provider Reason for Visit Consultation (Routine) - Specialty Diagnoses / Procedures Referred By Contact Refer red To Contact Rheumatology Diagnoses Pain in unspecified hand Violetta Sanford MD [facility] Rheumatology [address] [place] [address] [address] [place] [id number] Referral ID Status Reason Start Date Expiration Date Visits V isits Requested Authorized [id number] Consult, Test 04/23/2020 10/21/2020 [facility] PCP Updated and/or Approved Encounter Details Date Type Department Care Team Description 05/08/2020 Office Visit Rheumatology at [facility] [place], Osteoarthritis of multiple j oints, unspecified osteoarthritis type; [facility] DA Young Paresthesia of both hands; Drive [facility] H/O kidney transplant; [place], [place] [address] [id number] RHEUMATOLOGY [phone] [place] [address] Social History Tobacco Use Types Packs/Day Years [...] Sign Reading Time Taken Comments Blood Pressure 139/44 05/08/2020 2:12 PM EDT Pulse 58 05/08/2020 2:12 PM EDT Temperature 37.3 ??C (99.1 ??F) 05/08/2020 2:12 PM EDT Respiratory Rate - - Oxygen Saturation 97% 05/08/2020 2:12 PM EDT Inhaled Oxygen Concentration - - Weight - - Height 193 cm (6' 4) 05/08/2020 2:12 PM EDT Body Mass Index - - documented in this encounter Progress Notes Dante Freedman PA - 05/08/2020 2:30 PM EDTSummary: Patient with history of hand pain Rheumatology Outpatient Consultation Note Reason for Consult: The patient is seen at the request of Dr. Violetta Sanford MD for evaluation and treatment of ongoing arthralgias in the hands. Chart review conducted prior to the visit includes review of PMHx, medications, allergies, and prioroffice notes. The most pertinent findings are listed below. History of Present Illness: Leroy Torres is a 64 y.o. male who presents today for evaluation of hand arthralgias. He occasionally reports some morning stiffness. Patient tells me that each day over the course of his day his hands start to get achy because of that at night he applies a vesl-aub-nliwoay treatment of vitamin E oil. It is [...] vision. There is been no scalp tenderness. Patient has a complicated medical history with multiple medical problems including a kidney transplant diabetes COPD stage III, obesity, and bilateral [id number] amputations with prostheses. He utilizes a scooter at otherwise ambulates to and from the scooter today without any assistance devices. Because of a question of inflammatory arthritis in his hands had screening laboratory studies obtained which were notable for an elevated sedimentation rate of 108, with a creatinine of 2.57 and a positive RAMONA, negative anti-CCP. Patient tells me regarding his kidney transplant he has been told he will probably be able to continue on his current kidney for another 4 years before he may need another transplant. Review of Systems Constitutional: Negative for anorexia, diaphoresis, fever, weight loss, malaise/fatigue and chills. Respiratory: Negative for cough, shortness of breath and chest discomfort. Genitourinary: Positive for erectile dysfunction. Gastrointestinal: Negative for abdominal discomfort, vomiting, GERD, constipation, nausea, diarrhea and trouble swallowing. HENT: Negative for throat clearing, sinus pressure, hoarse voice, nosebleeds, postnasal drip and earpain. Hematologic/Lymphatic: Negative for adenopathy, tender nodes and easy bleeding. Does not bruise/bleed easily. Allergic/Immunologic: Positive for immunocompromised state. Negative for food allergies and recurrent infections. Musculoskeletal: Positive for joint pain. Negative for stiffness, myalgias and joint swelling. Endocrine: Negative for cold intolerance, Cushingoid appearance and cold intolerance. Cardiovascular: Negative for palpitations, near-syncope and syncope. Neurological: Positive for hearing loss. Negative for headaches and vertigo. Skin: Negative for dry skin, urticaria, photosensitivity, erythema and nodules. Current Outpatient Medications on File Prior to Visit Medication Sig Dispense Refill ??? glucagon, human recombinant, 1 mg/mL Recon Soln Inject into the muscle. ??? guaiFENesin 200 mg Tablet Take 400 mg by mouth every 4 hours as needed for Congestion. ??? Blood-Glucose Sensor (Dexcom G6 Sensor) Device by [facility]Non-Drug; Combo Route) route. Sensor, farm management professor andtransmitter ??? calciTRIoL (Rocaltrol) 0.5 mcg Capsule Take 1 capsule by mouth daily. 90 capsule 3 ??? calciTRIoL (Rocaltrol) 0.5 mcg Capsule Take 1 capsule by mouth daily. 90 capsule 3 ??? CellCept 250 mg Capsule TAKE TWO CAPSULES BY MOUTH TWICE A DAY 360 capsule 1 ??? hydrALAZINE (Apresoline) 100 mg Tablet Take 1 tablet by mouth 3 times daily. 90 tablet 5 ??? metoprolol succinate XL (Toprol-XL) 50 mg Tablet Sustained Release 24 hr Take 1 tablet by mouth daily. 90 tablet 1 ??? fluticasone propionate (FLONASE) 50 mcg/actuation [place], Suspension INSTILL 2 SPRAYS INTO EACH NOSTRIL ONCE A DAY NEEDED ??? triamcinolone (NASACORT or NASACORT OTC) 55 mcg Aerosol, [place] 2 sprays by Nasal route daily. 1 Inhaler 12 ??? multivitamin with minerals Tablet Take 1 tablet by mouth Daily. ??? primidone (MYSOLINE) 50 mg Tablet Take 1 tablet by mouth 4 times daily. Start 1/2 tablet at night and increase as directed 120 tablet 3 ??? PROGRAF 1 mg Capsule Take 1 capsule by mouth daily. Kidney transplant 02/29/2008 Z94.0 90 capsule 3 ??? PROGRAF 0.5 mg Capsule Take 1 capsule by mouth every evening. Kidney transplant 02/29/2008 Z94.0 90 capsule 3 ??? LEVEMIR FLEXTOUCH U-100 INSULN Insulin [...] gauge x 1/2 Needle 1 Device by [facility]Non- Drug; Combo Route) route 3 times daily. 100 each 3 ??? atorvastatin (LIPITOR) 20 mg Tablet Take 1 tablet by mouth daily. 90 tablet 3 ??? folic acid (FOLVITE) 1 mg Tablet Take 2 tablets by mouth daily. 180 tablet 3 ??? omeprazole (PRILOSEC) 40 mg Capsule, Delayed Release(E.C.) Take 1 capsule by mouth daily. 90 capsule 3 ??? ipratropium-albuterol (DUONEB) 0.5 mg-3 mg(2.5 mg base)/3 mL Solution for Nebulization Take 3 mLs by nebulization 2 times daily. 1 ??? STIOLTO RESPIMAT 2.5-2.5 mcg/actuation Mist Inhale 2 puffs into the lungs daily. 1 ??? Miscellaneous Medical Supply [facility] 4 Devices by [facility].(Non-Drug; Combo Route) route daily. Rubber sheath for [...] Take 10 mg by mouth daily. ??? amLODIPine (Norvasc) 10 mg Tablet Take 0.5 tablets by mouth daily. 90 tablet 3 ??? albuterol (PROVENTIL) 2.5 mg /3 mL (0.083 %) Solution for Nebulization Take 3 mLs by nebulization every 4 hours as needed for Wheezing. 90 mL 3 ??? acetaminophen (TYLENOL) 325 mg Tablet Take 650 mg by mouth every 4 hours as needed for Pain. Reported on 08/06/2016 No current facility-administered medications on file prior [...] (paroxysmal atrial fibrillation) I48.0 ??? Hypervolemia E87.70 SurgHX Past Surgical History: Procedure Laterality Date [...] BELOW-KNEE performed by HENNA GAMINO JR at [facility] MAIN OR ??? PRO LAP, APPENDECTOMY 06/16/2013 LAPAROSCOPIC APPENDECTOMY performed by Angel Mccann MD at [facility] MAIN OR ??? US RENAL TRANSPLANT LEFT Left 06/26/2019 US Renal Transplant Left 06/26/2019 [facility] RAD ULTRASOUND Family Hx: History reviewed. No pertinent family history. 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 The Patient History Form was reviewed with the patient, which included review of ROS, social hx, pmhx, famhx, current and prior medications, allergies, IZs, and ADLs. The form is scanned into the patient's chart. Physical Examination: BP 139/44 Pulse 58 Temp 37.3 ??C (99.1 ??F) (Temporal) Ht 193 cm (6' 4) SpO2 97% BMI 36.76 kg/m?? Musculoskeletal: Patient with no peripheral synovitis on exam bilateral below the knee prosthesis, patient lacks about 5 degrees of full extension of the right elbow. Hands full fist with earlier [place] nodes. Left hand with no synovial thickening I can clearly palpate the joint lines on the PIPs and MCPs no MCP squeeze tenderness no effusions noted mild bilateral CMC squaring right hand with second and third MCP with clear palpation of bilateral joint lines question of minor synovial thickening over the right fourth and fifth MCP non tender to vigorous compression. Negative Tinel's negative Phalen's. Physical Exam Constitutional: General: He is not in acute distress. Appearance: He is obese. He is not ill-appearing, toxic-appearing or diaphoretic. HENT: Head: Normocephalic and atraumatic. Left Ear: External ear normal. Nose: Nose normal. Eyes: General: No scleral icterus. Right eye: No discharge. Left eye: No discharge. Pulmonary: Effort: Pulmonary effort is normal. No respiratory distress. Breath sounds: No stridor. No rhonchi. Chest: Chest wall: No tenderness. Abdominal: Palpations: Abdomen is soft. Tenderness: There is no abdominal tenderness. There is no guarding. Musculoskeletal: General: No swelling or tenderness. Skin: Findings: No erythema. Neurological: Mental Status: He is alert. Physical Exam AWAD-28 tender joint count: 0 AWAD-28 swollen joint count: 0 Studies: X-ray exam of the hands dated 04/30/2020 impression reads minimal degenerative changes essentially negative examination for age. X-ray of right wrist and navicular from 11/12/2017 compared to study of 04/30/2020 findings reported of 3 views obtained wants normally mineralized cartilaginous joint spaces fairly well-maintained throughout for age no erosive or destructive process no significant bony abnormality sling slight marginalosteophytes formation of the bones are at the fifth MCP joint. Impression/Recommendations : Leroy Torres is a 64 y.o. male who presents today with ongoing arthralgias in hands on the background of an elevated sedimentation rate, positive RAMONA, diabetes, and kidney transplant on chronic immunosuppression. By exam and x-ray patient has mild osteoarthritis of the hands. He had no findings suggestive of smoldering inflammatory changes despite having the elevated sedimentation rate. The sedimentation rate is likely multifactorial given his kidney disease obesity and diabetes. Had a negative anti-CCP and had no features on exam suggestive of low-grade rheumatoid arthritis. He does not have had any symptomology suggestive of lupus, connective tissue disease, PMR or giant cell arteritis. His history of kidney disease was related to his diabetes. He continues on mycophenolate without complication for his transplant. Mycophenolate can also be used for lupus, connective tissue disease and inflammatory arthritis, and psoriasis. I think it is okay for him to continue with his topical vitamin E treatments at night as he finds them effective. We also discussed other conservative measures to help with his hand arthralgias during the day. He tells me he wakes up okay and his hands get achy as the day goes on. I suggested the use of a paraffin machine. He is familiar with this will [facility] with his hand aches and pains. He does work with his hands every day and remains active despite his extensive medical conditions. It could be what he is describing is carpal tunnel symptoms as they bother him primarily in the right hand. He does tell me he feels like there is something in there. We will see if we can get nerve conduction studies of the right upper extremity to be complete. He has a working man's hands and the Tinel's and Phalen's tests were negative with him. He does not seem to be significantly bothered by much. He will discuss with his senior contracts administrator whether or not a trial of chondroitin sulfate [id number] okay with nephrology. He may find this reasonable long-term supplement given he cannot take NSAIDs. Should the above interventions not improve his hand arthralgias and he feels a need for further intervention he was offered intra-articular injections which he declined today. We will plan on seeing him again in follow-up in 6 months otherwise sooner if required patient in agreement. Thank you for the opportunity of assisting in the care of this patient. documented in this encounter Plan of Treatment Upcoming Encounters Date Type Specialty Care Team Description 05/26/2022 Office Visit Otolaryngology Ricardo Panda PA [facility] [address] [place], [place] [address] (Wo rk) 06/02/2022 Infusion Hematology and Oncology 06/16/2022 Infusion Hematology and Oncology 06/21/2022 Office Visit Neurology Tyler oRjas MD [facility] Neurology [place], [place] [phone] (Wo rk) 06/30/2022 Infusion Hematology and Oncology 07/14/2022 Infusion Hematology and Oncology 07/28/2022 Infusion Hematology and Oncology 08/11/2022 Infusion Hematology and Oncology 11/04/2022 Office Visit Rheumatology Dante Freedman PA [facility] RHEUMATOLOGY [place], [place] [address] (Wo rk) documented as of this encounter Visit Diagnoses Diagnosis Osteoarthritis of multiple joints, unspe cified osteoarthritis type Paresthesia of both hands H/O kidney transplant Kidney replaced by transplant Immunosuppression Unspecified disorder of immune mechanism documented in this encounter Care Teams Electronics Recycler Relationship Specialty Start Date End Date Violetta Sanford MD PCP - General 04/02/14 [address] [place] [address] documented as of this encounter
--- OUTSIDE RECORDS SUMMARY | 2022-05-24 10:51 | XMS_ITS | Encounter Summary ---
:1955 Author Organization [facility] [place] [address] Care Team Providers Name Role Phone Violetta Sanford MD Primary Care Provider Reason for Visit Consultation (Routine) - Specialty Diagnoses / Procedures Referred By Contact Refer red To Contact Cardiology Diagnoses Transplanted kidney Chronic atrial fibrillation CKD (chronic kidney disease) stage 4, GFR 15-29 ml/min Type 2 diabetes mellitus with diabetic nephropathy, with long-term current use of insulin Alejo Garnett MD Costa, Salvatore P, MD [facility] TRANSPLANT SURGERY [place] [address] [place] [address] Fax: Referral ID Status Reason Start Date Expiration Date Visits V isits Requested Authorized [id number] Consult, 07/09/2019 07/08/2020 10 10 Test & Treat Encounter Details Date Type Department Care Team Description 11/15/2019 TH Visit Cardiology at [facility] J Luis Quispe, PAF (paroxysmal (TeleHealth) [facility] atrial fibrillation) [place] [address] CARDIOLOGY DEPT. [phone] [place], [place] [address] (Wo rk) Social History Tobacco [...] Progress Notes J Luis Quispe MD - 11/15/2019 1:40 PM EDT Images from the original note were not included. [facility] [place] [id number] CARDIOLOGY/ VASCULAR OUTPATIENT NOTE Leroy Sanford MD Patient verbally consents to this telephone visit and understands that this visit may be billed, similar to a clinic office visit. From my prior note (Jul 2019) : 64 year old male with diabetes and multiple complications including: bilateral BKA, ESRD s/p kidney transplant in 2007 referred to cardiology clinic for group home management of PAF. He is in NSR today.He has no significant history of CAD. He has had a prior stress echo that was normal in 2014. He denies any history of GA. ?? Apparently during a hospitalization for PNA [...] Met sux 25 to start. -zio monitor ?? SUBJECTIVE: Home reported vitals: last 5 readings -168/62, 82 -153/66, 68 -159/55, 83 -153/68, 86 -151/64, 84 -does not weigh himself. Last weight in clinic estimated at 329 lbs. Pleasant 64 year old male who is a double amputee who lives with his in [facility] [place]). States that he feels great although he has been restricted to a wheelchair since he lost his legs about 10 years ago. He tries to remain active within his limitations. Notes that he has had some phantom pain that initially improved with gabapentin, but then he stopped the gabapentin and his pain did not come back, so he remained off this medication. No chest pain. No significant shortness of breath. No PND or orthopnea. His BP has been running on the high side and his PCP, Dr. Sanford, recently increased his hydralazine from 50 mg TID to 75 mg TID. Meds: Current Outpatient Medications Medication Sig Note Dispense Refill ??? fluticasone propionate (FLONASE) 50 mcg/actuation [place], Suspension INSTILL 2 SPRAYS INTO EACH NOSTRIL ONCE A DAY NEEDED ??? triamcinolone (NASACORT or NASACORT OTC) 55 mcg Aerosol, [place] 2 sprays by Nasal route daily. 1 Inhaler 12 ??? albuterol (PROVENTIL) 2.5 mg /3 mL (0.083 %) Solution for Nebulization Take 3 mLs by nebulization every 4 hours as needed for Wheezing. 90 mL 3 ??? metoprolol succinate XL (Toprol-XL) 25 mg Tablet Sustained Release 24 hr Take 1 tablet by mouth daily. 90 tablet 3 ??? multivitamin with minerals Tablet Take [...] transplant 02/29/2008 Z94.0 90 capsule 3 ??? CELLCEPT 250 mg Capsule TAKE TWO CAPSULES BY MOUTH TWICE A DAY 360 capsule 3 ??? LEVEMIR FLEXTOUCH U-100 INSULN [...] gauge x 1/2 Needle 1 Device by [facility].(Non- Drug; Combo Route) route 3 times daily. [...] lungs daily. 1 ??? Miscellaneous Medical Supply [facility] 4 Devices by [facility].(Non-Drug; Combo Route) route daily. Rubber sheath for leg prosthesis (2 pairs) 4 each PRN ??? VENTOLIN HFA 90 mcg/actuation HFA Aerosol Inhaler Inhale 2 puffs into the lungs as needed. 0 ??? Insulin Lispro (HUMALOG) 100 unit/mL Insulin Pen Inject 30-40 Units subcutaneously 4 times daily. 08/06/2016: Sliding scale ??? BD INSULIN PEN NEEDLE UF ORIG 29 gauge x 1/2 Needle 0 ??? aspirin 81 mg EC tablet Take 81 mg by mouth daily. ??? montelukast (SINGULAIR) 10 mg tablet Take 10 mg by mouth daily. ??? hydrALAZINE (Apresoline) 50 mg Tablet Take 1.5 tablets by mouth 3 times daily. 270 tablet 5 ??? amLODIPine (Norvasc) 10 mg Tablet Take 0.5 tablets by mouth daily. 90 tablet 3 ??? guaiFENesin 200 mg Tablet Take 200 mg by mouth daily. 0 ASSESSMENT / PLAN: Active cardiac issues: #history of PAF in the setting of PNA/hospital #HTN Other martínez issues: #s/p kidney transplant 2007 #IDDM #double amputation, in wheelchair 64 year old male with diabetes and multiple complications including: bilateral BKA, ESRD s/p kidney transplant in 2007 referred to cardiology clinic for group home management of PAF. He was in NSR in July. He has no significant history of CAD. He has had a prior stress echo that was normal in 2014. He denies any history of GA. ?? Apparently during a hospitalization for PNA [...] continue to avoid anticoagulation at this point. It is noted that he is on low dose metoprolol succinate and this can lower his BP and HR (with some potential to decrease PAF episodes). His SBP remains in the mid to high 150s. BP meds include: -amlodipine 10 mg -hydralazine [...] 50 mg and possibly 100 if needed. Follow-up: 6 months with telehealth visit. I provided care to the patient today via telephone call. The total time associated with this visit was 25 minutes. [id number] 0-5min [id number] 6-10min [id number] 11-15min [id number] 16-20min xx [id number] 21-30min [id number] 31-40min [id number] 40+ min documented in this encounter Plan of Treatment Upcoming Encounters Date Type Specialty Care Team Description 05/26/2022 Office Visit Otolaryngology Ricardo Panda PA [facility] [place] [address] (Wo rk) 06/02/2022 Infusion Hematology and Oncology 06/16/2022 Infusion Hematology and Oncology 06/21/2022 Office Visit Neurology Tyler Rojas MD [facility] Neurology [place], [place] [phone] (Wo rk) 06/30/2022 Infusion Hematology and Oncology 07/14/2022 Infusion Hematology and Oncology 07/28/2022 Infusion Hematology and Oncology 08/11/2022 Infusion Hematology and Oncology 11/04/2022 Office Visit Rheumatology Dante Freedman PA [facility] RHEUMATOLOGY [place], [place] [address] (Wo rk) documented as of this encounter Visit Diagnoses Diagnosis PAF (paroxysmal atrial fibrillation) Atrial fibrillation documented in this encounter Care Teams International Manager Relationship Specialty Start Date End Date Violetta Sanford MD PCP - General 04/02/14 [facility] [address] [place] [address] documented as of this encounter
--- OUTSIDE RECORDS SUMMARY | 2022-05-24 10:51 | XMS_ITS | Encounter Summary ---
:1955 Author Organization [facility] Address [address] [place] [address] Care Team Providers Name Role Phone Violetta Sanford MD Primary Care Provider Encounter Details Date Type Department Care Team Description 06/24/2020 Laboratory Appointment Lab 3L [facility] Type 2 diabetes [facility] mellitus with [facility] hyperglyc emia, with Drive long-term current use [place], [place] of insulin [phone] Social History Tobacco Use Types Packs/Day Years [...] 05/26/2022 Office Visit Otolaryngology Ricardo Panda PA [facility] Medical [facility] er Dr Rodriguez [place] 0375 (Wo rk) 06/02/2022 Infusion Hematology and Oncology 06/16/2022 Infusion Hematology and Oncology 06/21/2022 Office Visit Neurology Tyler Rojas MD [facility] er Dr Sofi Rodriguez [place] [phone] (Wo rk) 06/30/2022 Infusion Hematology and Oncology 07/14/2022 Infusion Hematology and Oncology 07/28/2022 Infusion Hematology and Oncology 08/11/2022 Infusion Hematology and Oncology 11/04/2022 Office Visit Rheumatology Dante Freedman PA [facility] [address] [place], [place] [address] (Wo rk) documented as of this encounter Procedures Procedure Name Priority Date/Time Associated Comments Diagnosis HC CREATININE STAT 06/24/2020 10:57 Type 2 diabetes Results for this AM EST mellitus with procedure are in hyperglycemia, with the resu lts long-term current section. use of insulin HC THYROID STAT 06/24/2020 10:57 Type 2 diabetes Results for this STIMULATING HORMONE, AM EST mellitus with proced ure are in SERUM hyperglycemia, with the resu lts long-term current section. use of insulin HC HEMOGLOBIN A1C STAT 06/24/2020 10:57 Type 2 diabetes Res ults for this AM EST mellitus with procedure are in hyperglycemia, with the resu lts long-term current section. use of insulin documented in this encounter Results (ABNORMAL) Creatinine (06/24/2020 10:57 AM EST) Analysis Performed At [facility] Time Signature Creatinine 2.48 (H) 0.80 - JERE MUROCOCK 1.50 mg/dL [facility] Estimated GFR 26 (L) >=60 [place] mL/min/1.[address] LABORATORY Comment: This patient? s estimated glomerular filtration rate (eGFR) is between 26 mL/min/1.73 m2 (patients with less muscl e mass per kg body weight) and 30 mL/min/1.73 m2 (patients with more muscl e [...] Location / / Volume Laterality Blood specimen 06/24/2020 10:57 0 (specimen) AM EST 11:09 AM EST Resulting Agency Comment Spec In Lab Donell Hernandez MD CHEMISTRY ORDERABLES Performing Organization Address City/State/ZIP Code Phon e Number [address] TSH (06/24/2020 10:57 AM EST) P athologist Signature TSH 2.03 0.27 - 4.20 [place] mcIU/mL [facility] Specimen Anatomical Collection Method Collection Time Receive d Time (Source) Location / / Volume Laterality Blood specimen 06/24/2020 10:57 0 (specimen) AM EST 11:09 AM EST Resulting Agency Comment Spec In Lab Donell Hernandez MD CHEMISTRY ORDERABLES Performing Organization Address City/State/[place] [address] (ABNORMAL) Hemoglobin A1c (06/24/2020 10:57 AM EST) Analysis Performed At Patho logist Time Signature Hemoglobin A1C 6.4 (H) 4.3 - 5.6 [facility] Comment: Reference Range: 4.3 [...] Mellitus, Diabetes Care 2013; 36: Suppl. 1, Q97-93 Est Avg Gluc 136 mg/dL [facility] Comment: eAG equivalents for HbA1c percentages: HbA1c(%) ?eAG(mg/dL) 6.0 ?126 6.5 ?140 7.0 ?154 7.5 ?169 8.0 ?183 8.5 ?197 9.0 ?212 9.5 ?226 10.0 ? 240 Limitations: The eAG calculation has not been validated on women, individuals below 18 years old and above 70 years old, and individuals with hemoglobinopathies. Additional resources are available on [facility] ADA website. Scooby MALDONADO, Nba J, Sydnee R, et al. ??Tr anslating the A1C assay into estimated average glucose values. ??Diabetes Care 2008:31(8):6679-0101. Specimen Anatomical Collection Method Collection Time Receive d Time (Source) Location / / Volume Laterality Blood specimen 06/24/2020 10:57 0 (specimen) AM EST 11:09 AM EST Resulting Agency Comment Spec In Lab Donell Hernandez MD CHEMISTRY ORDERABLES Performing Organization Address City/State/[place] [address] documented in this encounter Visit Diagnoses Diagnosis Type 2 diabetes mellitus with hyperglyce maki, with long-term current use of insulin documented in this encounter Care Teams Multi Sensor Operator Relationship Specialty Start Date End Date Violetta Sanford MD PCP - General 04/02/14 [address] [place] [address] documented as of this encounter
--- OUTSIDE RECORDS SUMMARY | 2022-05-24 10:51 | XMS_ITS | Encounter Summary ---
:1955 Author Organization [facility] [place] [address] Care Team Providers Name Role Phone Violetta Sanford MD Primary Care Provider Encounter Details Date Type Department Care Team Description 09/12/2019 Telephone Endocrinology at [facility] Robert Viveros, [place] [phone] Social History Tobacco Use Types Packs/Day [...] Telephone Encounter - Robert Tran RN - 09/12/2019 1:51 PM EST Note to Dr Hernandez to place referral to perinatal educator for CGM. Already scheduled appt. Telephone Encounter - Robert Tran RN - 09/12/2019 11:58 AM EST Pt left voicemail that he is interested in a CGM. He is not sure which one. He knows of the Dexcom system but has not really discussed other options, so he is not sure what would be best for him. I diddiscuss that if he did want the Dexcom system, he could go through [facility]. He does have one localto him in [place], [place]. He says he has an appt in the pain clinic at next if there was need for him to come in and discuss in person. documented in this encounter Plan of Treatment Upcoming Encounters Date Type Specialty Care Team Description 05/26/2022 Office Visit Otolaryngology Ricardo Panda PA [facility] Dr [place], [place] [address] (Wo rk) 06/02/2022 Infusion Hematology and Oncology 06/16/2022 Infusion Hematology and Oncology 06/21/2022 Office Visit Neurology Tyler Rojas MD [facility] Neurology [place], [place] [phone] (Wo rk) 06/30/2022 Infusion Hematology and Oncology 07/14/2022 Infusion Hematology and Oncology 07/28/2022 Infusion Hematology and Oncology 08/11/2022 Infusion Hematology and Oncology 11/04/2022 Office Visit Rheumatology Dante Freedman PA [facility] RHEUMATOLOGY [place], [place] [address] (Wo rk) documented as of this encounter Visit Diagnoses Not on filedocumented in this encounter Care Teams Director Of Environmental Services Relationship Specialty Start Date End Date Violetta Sanford MD PCP - General 04/02/14 [address] [place] [address] documented as of this encounter
--- OUTSIDE RECORDS SUMMARY | 2022-05-24 10:51 | XMS_ITS | Encounter Summary ---
:1955 Author Organization [facility] [place] [address] Care Team Providers Name Role Phone Violetta Sanford MD Primary Care Provider Encounter Details Date Type Department Care Team Description 04/07/2020 Office Visit Solid Organ [place], H/O kidney tilley splant; [place] [facility] Alejo Desir MD CKD (chronic kidney disease) stage 4, GF R 15-29 ml/min; [facility] Aftercare following organ transplant; [facility] DR Holman hypervolemia; [place], [place] TRANSPLANT Prophylactic im munotherapy [phone] SURGERY [phone] [place], [place] [address] Social History Tobacco Use Types [...] Reading Time Taken Comments Blood Pressure 140/70 04/07/2020 12:37 PM EDT Pulse 76 04/07/2020 12:37 PM EDT Temperature 36.9 ??C (98.4 ??F) 04/07/2020 12:37 PM EDT Respiratory Rate - - Oxygen Saturation - - Inhaled Oxygen Concentration - - Weight 137 kg (302 lb) 04/07/2020 12:37 PM EDT Height - - Body Mass Index 36.76 09/20/2019 2:32 PM EST documented in this encounter Progress Notes Alejo Garnett MD - 04/07/2020 11:40 AM EDT TRANSPLANT NEPHROLOGY FOLLOW-UP NOTE PATIENT: Leroy Torres : 1955 Transplant ID: Date: 04/07/2020 Patient: Leroy Torrse Transplant Date: 02/29/08 Organ(s) Kidney [place] organ diagnosis: Diabetes Mellitus - Type II From Transplant: 08/05 years ID: This is a 64 yo white male with a history of ESRD secondary to diabetic nephropathy s/p DD renaltransplant on 02/29/08 who returns to clinic after having found a rise in is creatinine to over 2.0 mg/dL with proteinuria. His last visit was in June 2019. Interim Hx: Reuben returned to clinic with his . He was concerned over the rise in is creatinine but he admitted his diabetic care has been suspect, and he has noted intermittent palpitations. He related that when he was admitted to [facility] in October 2018 they had found him in and out of A fib.Reuben denies anasarca, progressive ascites, edema beyond usual from his amputations and obesity. Excessive salt intake newmeds or allergies. He was due to see Dr. Hernandez in May 2019; but no appointment has been made. His last visit with him was May 2018. Previously Dr. Hernandez felt he was stable and could not utilize an insulin pump because of the quantity of insulin used daily.Continues to struggle with diabetes control. Followed every 6 months. Remains intolerant to CPAP. Denies any urinary symptoms. 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 Active Ambulatory Problems Diagnosis Date Noted ??? [...] 09/20/2019 ??? PAF (paroxysmal atrial fibrillation) 11/15/2019 Resolved Ambulatory Problems Diagnosis Date Noted ??? [...] BELOW-KNEE performed by HENNA GAMINO JR at [facility] MAIN OR ??? PRO LAP, APPENDECTOMY 06/16/2013 LAPAROSCOPIC APPENDECTOMY performed by Angel Mccann MD at [facility] MAIN OR ??? US RENAL TRANSPLANT LEFT Left 06/26/2019 US Renal Transplant Left 06/26/2019 [facility] RAD ULTRASOUND Healthcare maintenance for a transplant recipient: Immunizations (no live virus or modified bacterial vaccines) Prevnar 13 once in a lifetime Pneumovax 23 every 5 years Tdap every 10 years Annual flu shot -> due in April NO SHINGLES VACCINES Annual PCP exam - up to date Annual LITZY and PSA for males over 40 - due Annual pap gyne for females (pap if cervix present; visual inspection if no cervix present) Annual mammogram for females over 40, younger than 40 if family hx positive Every 5 year colonoscopy after age 50 - Normal in 2017 in [facility] Monthly self skin exam, daily spf [...] done 03/21/2015 which was normal. Due again!! [place] kidney ultrasound looking for renal cell CA, every 5 years post transplant - Due this year. Bone density assessment every 9-12 years post transplant ; has not been performed Annual fasting lipid profile Annual PTH-Vit D3 assessment until normalized Annual spot urine for creatinine, protein, calcium, phosphate, magnesium Current Outpatient Medications: ??? CellCept 250 mg Capsule, TAKE TWO CAPSULES BY MOUTH TWICE A DAY, Disp: 360 capsule, Rfl: 1 ??? hydrALAZINE (Apresoline) 100 mg Tablet, Take 1 tablet by mouth 3 times daily., Disp: 90 tablet, Rfl: 5 ??? metoprolol succinate XL (Toprol-XL) 50 mg Tablet Sustained Release 24 hr, Take 1 tablet by mouthdaily., Disp: 90 tablet, Rfl: 1 ??? amLODIPine (Norvasc) 10 mg Tablet, Take 0.5 tablets by mouth daily., Disp: 90 tablet, Rfl: 3 ??? fluticasone propionate (FLONASE) 50 mcg/actuation [place], Suspension, INSTILL 2 SPRAYS INTO EACH NOSTRIL ONCE A DAY NEEDED, Disp: , Rfl: ??? triamcinolone (NASACORT or NASACORT OTC) 55 mcg Aerosol, [place], 2 sprays by Nasal route daily., Disp: [...] directed, Disp: 120 tablet, Rfl: 3 ??? PROGRAF 1 mg Capsule, Take 1 capsule by mouth daily. Kidney transplant 02/29/2008 Z94.0, Disp: 90 capsule, Rfl: 3 ??? PROGRAF 0.5 mg Capsule, Take 1 capsule by mouth every evening. Kidney transplant 02/29/2008 Z94.0,Disp: 90 capsule, Rfl: 3 ??? LEVEMIR FLEXTOUCH U-100 INSULN [...] gauge x 1/2 Needle, 1 Device by [facility].(Non- Drug; Combo Route) route 3 times daily., [...] Reported on 08/06/2016, Disp: , Rfl: ??? ipratropium-albuterol (DUONEB) 0.5 mg-3 mg(2.5 mg base)/3 mL Solution for Nebulization, Take 3 mLs by nebulization 2 times daily., Disp: , Rfl: 1 ??? STIOLTO RESPIMAT 2.5-2.5 mcg/actuation Mist, Inhale 2 puffs into the lungs daily., Disp: , Rfl: 1 ??? Miscellaneous Medical Supply [facility], 4 Devices by [facility].(Non-Drug; Combo Route) route daily. Rubbersheath for leg prosthesis (2 pairs), Disp: 4 each, Rfl: PRN ??? VENTOLIN HFA 90 mcg/actuation HFA Aerosol Inhaler, Inhale 2 puffs into the lungs as needed., Disp: , Rfl: 0 ??? Insulin Lispro (HUMALOG) 100 unit/mL Insulin Pen, Inject 30-40 Units subcutaneously 4 times daily., Disp: , Rfl: ??? BD INSULIN PEN NEEDLE UF ORIG 29 gauge x 1/2 Needle, , Disp: , Rfl: 0 ??? aspirin 81 mg EC tablet, Take 81 mg by mouth daily., Disp: , Rfl: ??? montelukast (SINGULAIR) 10 mg tablet, Take 10 mg by mouth daily., Disp: , Rfl: ??? calciTRIoL (Rocaltrol) 0.5 mcg Capsule, Take 1 capsule by mouth daily., Disp: 90 capsule, Rfl: 3 ??? calciTRIoL (Rocaltrol) 0.5 mcg Capsule, Take 1 capsule by mouth daily., Disp: 90 capsule, Rfl: 3 Allergies Allergen Reactions ??? Penicillins Anaphylaxis ??? Iftikhar Inhibitors Cough ??? Clindamycin Hcl Rash ??? Allergenic Extracts Birch and Nut Trees, cats, dust, pollen bird feathers ??? Ibuprofen ??? Levemir [Insulin Detemir] Contraindicated - kidney transplant ??? Sulfamethoxazole-Trimethoprim Immunization History Administered Date(s) Administered ??? Hepatitis B Vaccine, unspecified formulation 08/20/2004, 09/28/2004, 03/01/2005 ??? Influenza PF, Split 05/13/2016 ??? Influenza Vaccine, Whole 05/19/2005, 06/25/2008 ??? Pneumococcal Conjugate (13 Valent) 07/09/2015 ??? Pneumococcal Polyvalent 23 12/20/1996, 02/10/2007, 02/23/2012, 03/21/2019 ??? Td, adult 06/24/1990 ??? Tdap Vaccine 07/13/2013 ROS: Constitutional - No fevers, chills, weight [...] or gross hematuria. Neuro - No focal weakness. Positive for fluid retention of limbs PHYSICAL EXAM: Vitals Office Visit from 04/07/2020 in Solid Organ Transplant at [facility] Weight (!) 137 kg (302 lb) Temp 36.9 ??C (98.4 ??F) Temp src Oral Heart Rate 76 BP 140/70 Patient Position Sitting Appearance - Awake and alert. NAD. Morbidly obese. Skin - No exanthem or wound. HEENT - No sclera icterus. Moist oral mucosa. Chest - Lungs CTA. Heart - S1 and S2. RRR. No MRG. No JVD. Abd - Obese. Soft. Non-tender. Normal BS. Ext - LUE AVF with bruit and thrill. Warm extremities. No cyanosis. Bilateral prosthetic legs. Neuro - Normal speech. Left hand resting tremor. Outside labs from March 19, 2020: hgbA1C 6.7% Wbc 7270, hgb 9.7, plt 209K Ca 8.4, PO4 3.3, Mg 1.6 PTH 186, BUN 36, creat 2.54 Estim. GFR 26 K 5.0, tCO2 23 Tacrolimus trough level 4.0 Urine P/C 3.27 Alb 2.9 tchol 107, tgd 151, HDL 27, LDL 50 IMPRESSION/ RECOMMENDATIONS: 1. Graft function - failing graft, considering DD kidney 12 years out with creatinine rise to 2.54 mg/dL and progressive proteinuria. Function has deteriorated over the years likely due to poor diabetic control (hgb >9.0%) and dehydration. Losartan and lisinopril discont'd due to side effects now pr oteinuria is becoming symptomatic (lower serum albumin and fluid retention). 2. Immunosuppression - Prograf level acceptable. Continue Prograf 1/ 0.5 mg BID and Cellcept 500mg BID. 3. BMD - Labs reviewed. Ca++ and Phos WNL. PTH elevated and likely in need of 1,25 dihydroxy vit D3 Will incr calcitriol to 1.0 mcg qd 4. Hyperlipidemia - Continue heart healthy diet. Continue Atorvastatin 20mg daily. 5. Diabetes - A1C 6.7 %. Working with Dr Hernandez (?) to improve glycemic control. Healthy diet and regular physical activity (upper extremities etc) for weight loss discussed. Needs Dr. Hernandez follow up Diet recs: 2000 mg salt, 75 gm protein 6. New onset AF dx October 2018, followed by Dr. Quispe 7.Healthcare maintenance - See section above. Needs follow up with Dr. Hernandez, missed appt in May2019; discussed COVID19 in detail RTC in 6 months with labs, quarterly Discussion with the patient and/or family concerned the following: ? Diagnostic results or recommended studies ? Prognosis; ? Risks and benefits of management; ? Instructions for management; ? Compliance with treatment; ? Risk factor reduction; ? Patient and family education. Total time: 25 of 30 min in direct face to face behavioral school counselors. documented in this encounter Plan of Treatment Upcoming Encounters Date Type Specialty Care Team Description 05/26/2022 Office Visit Otolaryngology Ricardo Panda PA [facility] [address], [place] [address] (Wo rk) 06/02/2022 Infusion Hematology and Oncology 06/16/2022 Infusion Hematology and Oncology 06/21/2022 Office Visit Neurology Tyler Rojas MD [facility] Medical [facility] er Neurology [place], [place] [phone] (Wo rk) 06/30/2022 Infusion Hematology and Oncology 07/14/2022 Infusion Hematology and Oncology 07/28/2022 Infusion Hematology and Oncology 08/11/2022 Infusion Hematology and Oncology 11/04/2022 Office Visit Rheumatology Dante Freedman PA [facility] RHEUMATOLOGY [place], [place] [address] (Wo rk) documented as of this encounter Visit Diagnoses Diagnosis H/O kidney transplant Kidney replaced by transplant CKD (chronic kidney disease) stage 4, GF R 15-29 ml/min Chronic kidney disease, Stage IV (severe ) Aftercare following organ transplant Other hypervolemia Prophylactic immunotherapy Need for prophylactic immunotherapy documented in this encounter Care Teams Master Naval Parachutist Relationship Specialty Start Date End Date Violetta Sanford MD PCP - General 04/02/14 [address] [place] [address] documented as of this encounter
--- OUTSIDE RECORDS SUMMARY | 2022-05-24 10:51 | XMS_ITS | Encounter Summary ---
:1955 Author Organization [place] [address] Care Team Providers Name Role Phone Violetta [...] annoying phantom pains/ ?pain Donell Hernandez MD [facility] Pain And management options [facility] [address]ine [address] [facility] ENDOCRINOLOGY DEPT. [address] [address] Phone: Fax: Referral ID Status Reason Start Date Expiration Date Visits V isits Requested Authorized [id number] Closed Pain Consult 08/29/2019 08/28/2020 1 1 Reason for Visit Reason Comments Follow-up Consultation (Routine) - Specialty Diagnoses / Procedures Referred By Contact Refer red To Contact Endocrinology Diagnoses Transplanted kidney CKD (chronic kidney disease) stage 4, GFR 15-29 ml/min Type 2 diabetes mellitus with diabetic nephropathy, with long-term current use of insulin Alejo Garnett Comi, Richard J, MD MD [facility] D R ENDOCRINOLOGY [place]PT[place] [address] Referral ID Status Reason Start Date Expiration Visits Visits Date Requested Authorized [id number] Specialty 07/09/2019 07/08/2020 10 10 Service Requested Encounter Details Date Type Department Care Team Description 08/29/2019 Office Visit Endocrinology at [facility] Donell Hernandez, Type 2 diabetes mellitus wit h hyperglycemia, with long-term current use of insulin; [facility] Rhinorrhea; [facility] Type 2 diabetes mellitus wit h diabetic neuropathy, with long-term current use [place] [address] [facility]ENTER [phone] ENDOCRINOLOGY DEPT. [place], [place] [address] Social History Tobacco Use Types [...] Sign Reading Time Taken Comments Blood Pressure 158/74 08/29/2019 10:39 AM EST Pulse 54 08/29/2019 10:39 AM EST Temperature - - Respiratory Rate 20 08/29/2019 10:39 AM EST Oxygen Saturation 94% 08/29/2019 10:39 AM EST Inhaled Oxygen Concentration - - Weight 136.1 kg (300 lb) 08/29/2019 10:39 AM EST Height 195.6 cm (6' 5) 08/29/2019 10:39 AM EST Body Mass Index 35.57 08/29/2019 10:39 AM EST documented in this encounter Progress Notes Donell Hernandez MD - 08/29/2019 11:00 AM EST Year of diagnosis: Regimen ____ oral [...] bilateral bka R and morbid obesity. From May 2018 1) DM2 - his diabetes control is stable, weigh tis up and down 10 lbs or so. We had a long discussion about insulin pumps - he would have practical problems since they only hold 300 units and he would have to change the insertion frequently(every day) and pumps cannot run easily at 5-6 units per hour.U500 can be run in a pump but one loses the rapid action for correction. I told him it was unlikely to improve his health. 2) apparent weight gain - this is his estimate of his weight, not a measured one. He thinks his weight is the same for the year 3) retinopathy - quiet at present 4) history of renal transplant- renal function is stable for the year Pneumonia 3 weeks ago - in hospital - had a hypoglycemic episode then hyperglycemia now on primadone for tremor - doing well stopped losartan due to high K transplant still working well On victoza 1.8, no nausea Stopped CPAP- sees no problem Has a back brace- may help walking Will see pain clinic, had been doing PT Renal transplant now for 10 years Son has DM Regimen Basal levemir 60/60 bid Bolus humalog 45 -55units per meal CF 1:4 Uses a sliding scale hbgm 4 x a day 130-200 most days for fbs Hypo none Diet B donut Sn Bagel L Corned beef sandwich at home Sn D omelet Sn Exercise Tries to be active complications Eyes prior laser therapy Feet Bilateral BKA Kidneys + renal transplant autonomic: no gastroparesis bladder hypo unaware tachycardia cardiac no chest pain on exertion no shortness of breath at rest No history of stent cabg chf prevention: last eye exam: This Aug last microalbumin :2011 last Cr: today last lipid panel:2011 regular fountain jerk:no special shoes:no flu shot :yes pneumovax: 2011 prevnar 2014 acei yes Asa Yes statin yes NO shingles shot permitted by transplant team Current Outpatient Medications Medication Sig Dispense Refill ??? metoprolol succinate XL (Toprol-XL) 25 mg [...] TWICE A DAY 360 capsule 3 ??? gabapentin (NEURONTIN) 300 mg Capsule TAKE 3 CAPSULES BY MOUTH 3 TIMES DAILY 810 capsule 0 ??? cholecalciferol, Vitamin D3, 2,000 unit Tablet Take 1 tablet by mouth daily. 90 tablet 3 ??? liraglutide (VICTOZA 3-FAZAL) 0.6 mg/0.1 mL (18 mg/3 mL) Pen Injector Inject 1.2 mg subcutaneouslydaily. 6 mL 11 ??? insulin needles, disposable, 29 gauge x 1/2 Needle 1 Device by [facility].(Non- Drug; Combo Route) route 3 times daily. 100 each 3 ??? atorvastatin (LIPITOR) 20 mg Tablet Take 1 tablet by mouth daily. 90 tablet 3 ??? folic acid (FOLVITE) 1 mg Tablet Take 2 tablets by mouth daily. 180 tablet 3 ??? omeprazole (PRILOSEC) 40 mg Capsule, Delayed Release(E.C.) Take 1 capsule by mouth daily. 90 capsule 3 ??? albuterol (PROVENTIL) 2.5 mg /3 mL (0.083 %) Solution for Nebulization Take 2.5 mg by nebulization every 4 hours as needed for Wheezing. ??? acetaminophen (TYLENOL) 325 mg Tablet Take 650 mg by mouth every 4 hours as needed for Pain. Reported on 08/06/2016 ??? ipratropium-albuterol (DUONEB) 0.5 mg-3 mg(2.5 mg base)/3 mL Solution for Nebulization Take 3 mLs by nebulization 2 times daily. 1 ??? STIOLTO RESPIMAT 2.5-2.5 mcg/actuation Mist Inhale 2 puffs into the lungs daily. 1 ??? Miscellaneous Medical Supply [facility] 4 Devices by [facility].(Non-Drug; Combo Route) route daily. Rubber sheath for leg prosthesis (2 pairs) 4 each PRN ??? VENTOLIN HFA 90 mcg/actuation HFA Aerosol Inhaler Inhale 2 puffs into the lungs as needed. 0 ??? Insulin Lispro (HUMALOG) 100 unit/mL Insulin Pen Inject 30-40 Units subcutaneously 4 times daily. ??? BD INSULIN PEN NEEDLE UF ORIG 29 gauge x 1/2 Needle 0 ??? fluticasone (FLONASE) 50 mcg/actuation nasal spray 2 sprays by Each Nare route as needed. 64 g 11 ??? MULTIVITS-MINERALS/FA/LYCOPENE (ONE-A-DAY MEN'S MULTIVITAMIN ORAL) Take by mouth daily. ??? aspirin 81 mg EC tablet Take 81 mg by mouth daily. ??? montelukast (SINGULAIR) 10 mg tablet Take 10 mg by mouth daily. ??? guaiFENesin 200 mg Tablet Take 200 mg by mouth daily. 0 ??? losartan (COZAAR) 50 mg Tablet Take one tablet by mouth every evening with a 25 mg tablet (Patient not taking: Reported on 08/16/2019) 30 tablet 11 ??? propranolol (INDERAL LA) 160 mg Capsule,Sustained Action 24 hr Take 1 capsule by mouth 3 times daily. (Patient not taking: Reported on 08/16/2019) 270 capsule 1 ??? LEVEMIR FLEXTOUCH U-100 INSULN Insulin Pen Inject 50-80 Units subcutaneously 2 times daily. ICD 10 Code: E11.40 45 mL 11 No current facility-administered medications for this visit. appearance: wt Change Down 18 for the year, contrinues ot lose weight BP 158/74 Pulse 54 Resp 20 Ht 195.6 cm (6' 5) Wt 136.1 kg (300 lb) SpO2 94% BMI 35.57 kg/m?? eyes: no retinopathy seen by green light ext: no pitting edema feet: bilateral bka neuro: gait is normal appreciation of 10 g of pressure is present Recent Results (from the past 24 hour(s)) Lavender Tube HOLD Result Value Ref Range Lavender Hold Sample in lab. Hemoglobin A1c Result Value Ref Range Hemoglobin A1C 7.9 (H) 4.3 - 5.6 % Est Avg Gluc 179 mg/dL Results for ASIM LEROY Sania ABDULKADIR ( ) as of 08/29/2019 17:49 Ref. Range 06/26/2019 08:02 07/09/2019 00:00 07/10/2019 00:00 07/16/2019 00:00 Creatinine Unknown 1.98 (H) 2.37 (H) 2.37 (H) eGFR Unknown 34 (L) 27.62 27.62 1) DM2 - this shows reasonable control on this regimen, especially with a recent illness - no change 2)CKD3 - in transplant - slowly deteriorating fmunction 3) retinopathy - quiet at present 4) history of renal transplant- is immunocompromised documented in this encounter Plan of Treatment Upcoming Encounters Date Type Specialty Care Team Description 05/26/2022 Office Visit Otolaryngology Ricardo Panda PA [facility] [address] [place] [address] (Oscar escobedo) 06/02/2022 Infusion Hematology and Oncology 06/16/2022 Infusion Hematology and Oncology 06/21/2022 Office Visit Neurology Tyler Rojas MD [facility] [address] [place], [place] [phone] (Oscar escobedo) 06/30/2022 Infusion Hematology and Oncology 07/14/2022 Infusion Hematology and Oncology 07/28/2022 Infusion Hematology and Oncology 08/11/2022 Infusion Hematology and Oncology 11/04/2022 Office Visit Rheumatology Dante Freedman PA [facility] [address] [place] [phone] (Wo rk) Scheduled Orders Name Type Priority Associated Diagnoses Order S chedule Hemoglobin A1c Lab STAT Type 2 diabetes mellitus w ith Expected: 01/26/2020 hyperglycemia, with long-ter m (Approximate), Expires: current use of insulin 08/28 Scheduled Referrals Name Type Priority Associated Order Schedule Diagnoses Referral to Pain Outpatient Referral Routine Type 2 diabetes O rdered: Management mellitus with 08/29/2019 hyperglycemia, with long-term current use of insulin Type 2 diabetes mellitus with diabetic neuropathy, with long-term current use of insulin documented as of this encounter Results TSH (06/24/2020 10:57 AM EST) P athologist Signature TSH 2.03 0.27 - 4.20 JERE CUEVASMELI mcIU/mL [facility] Specimen Anatomical Collection Method Collection Time Receive d Time (Source) Location / / Volume Laterality Blood specimen 06/24/2020 10:57 0 (specimen) AM EST 11:09 AM EST Resulting Agency Comment Spec In Lab Donell Hernandez MD CHEMISTRY ORDERABLES Performing Organization Address City/State/[place] [address] (ABNORMAL) Creatinine (06/24/2020 10:57 AM EST) Analysis Performed At Patho logist Time Signature Creatinine 2.48 (H) 0.80 - JERE GARRISON 1.50 mg/dL [facility] Estimated GFR 26 (L) >=60 JERE GARRISON mL/min/1.7 [facility] 3 [facility] Comment: This patient? s estimated glomerular [...] Organization Address City/State/[place] [address] (ABNORMAL) Hemoglobin A1c (06/24/2020 10:57 AM EST) Analysis Performed At Patho logist Time Signature Hemoglobin A1C 6.4 (H) 4.3 - 5.6 [facility] Comment: Reference Range: 4.3 - [...] Mellitus, Diabetes Care 2013; 36: Suppl. 1, F03-29 Est Avg Gluc 136 mg/dL [facility] Comment: eAG equivalents for HbA1c percentages: HbA1c(%) ?eAG(mg/dL) 6.0 ?126 6.5 ?140 7.0 ?154 7.5 ?169 8.0 ?183 8.5 ?197 9.0 ?212 9.5 ?226 10.0 ? 240 Limitations: The eAG calculation has not been validated on women, individuals below 18 years old and above 70 years old, and individuals with hemoglobinopathies. Additional resources are available on [facility] website. Scooby MALDONADO, Nba J, Sydnee R, et al. ??Tr anslating the A1C assay into estimated average glucose values. ??Diabetes Care 2008:31(8):9370-2227. Specimen Anatomical Collection Method Collection Time Receive d Time (Source) Location / / Volume Laterality Blood specimen 06/24/2020 10:57 0 (specimen) AM EST 11:09 AM EST Resulting Agency Comment Spec In Lab Donell Hernandez MD CHEMISTRY ORDERABLES Performing Organization Address City/State/[place] [address] documented in this encounter Visit Diagnoses Diagnosis Type 2 diabetes mellitus with hyperglyce maki, with long-term current use of insulin Rhinorrhea Other diseases of nasal cavity and sinus es Type 2 diabetes mellitus with diabetic n europathy, with long-term current use of insulin documented in this encounter Care Teams Dental Laboratory Manager Relationship Specialty Start Date End Date Violetta Sanford MD PCP - General 04/02/14 [address] [place] [address] documented as of this encounter
--- OUTSIDE RECORDS SUMMARY | 2022-05-24 10:51 | XMS_ITS | Encounter Summary ---
:1955 Author Organization [facility] [place] [address] Care Team Providers Name Role Phone Violetta Sanford MD Primary Care Provider Reason for Visit Reason Onset Date Comments Pump/sensor 10/25/2019 Encounter Details Date Type Department Care Team Description 10/25/2019 Telephone Endocrinology at [facility] Breanne Garcia RN Pump/[place] [phone] Social History Tobacco Use Types Packs/Day [...] encounter Miscellaneous Notes Telephone Encounter - Breanne Elliott RN - 10/25/2019 11:30 AM EDT John msg from Shona Bae, pt's ocular care aide at [facility] ([phone]), inquiring as to status of pt's CGM and stating he's been getting the runaround from [employer]. Per chart notes, paperwork was sent to [facility]. Per Terri Morales, no paperwork was received from [employer]. Left msg for Shona with that info and asked for r/c. documented in this encounter Plan of Treatment Upcoming Encounters Date Type Specialty Care Team Description 05/26/2022 Office Visit Otolaryngology Ricardo Panda PA [facility] [place] [address] [place], [place] [address] (Wo rk) 06/02/2022 Infusion Hematology and Oncology 06/16/2022 Infusion Hematology and Oncology 06/21/2022 Office Visit Neurology Tyler Rojas MD [facility] Neurology [place], [place] [phone] (Wo rk) 06/30/2022 Infusion Hematology and Oncology 07/14/2022 Infusion Hematology and Oncology 07/28/2022 Infusion Hematology and Oncology 08/11/2022 Infusion Hematology and Oncology 11/04/2022 Office Visit Rheumatology Dante Freedman PA [facility] RHEUMATOLOGY [place], [place] [address] (Wo rk) documented as of this encounter Visit Diagnoses Not on filedocumented in this encounter Care Teams Boring And Filling Machine Operator Relationship Specialty Start Date End Date Violetta Sanford MD PCP - General 04/02/14 [facility] AL[address]A [address] [place] [address] documented as of this encounter
--- OUTSIDE RECORDS SUMMARY | 2022-05-24 10:51 | XMS_ITS | Encounter Summary ---
:1955 Author Organization [facility] [place] [address] Care Team Providers Name Role Phone Violetta Sanford MD Primary Care Provider Encounter Details Date Type Department Care Team Description 09/01/2020 Office Visit Solid Organ Chobanian, H/O kidney tilley splant; Transplant at [facility] Alejo Desir MD CKD (chronic kidney disease) stage 4, GF R 15-29 ml/min; [facility] Anemia of chronic renal failure, stage 4 (severe); [facility] Renal tubular acidosis; [place], [place] TRANSPLANT Aftercare follo wing organ transplant; [id number] SURGERY Other postherpetic nervous system involv ement; [phone] [place], [place] [address] Renal osteodystrophy Social History Tobacco Use Types Packs/Day Years [...] Sign Reading Time Taken Comments Blood Pressure 160/68 09/01/2020 10:22 AM EST Pulse 76 09/01/2020 10:22 AM EST Temperature 36.8 ??C (98.2 ??F) 09/01/2020 10:22 AM EST Respiratory Rate - - Oxygen Saturation - - Inhaled Oxygen Concentration - - Weight 126.6 kg (279 lb 3.2 oz) 09/01/2020 10:22 AM EST Height - - Body Mass Index 36.34 06/24/2020 12:23 PM EST documented in this encounter Progress Notes Alejo Garnett MD - 09/01/2020 10:00 AM EST TRANSPLANT NEPHROLOGY FOLLOW-UP NOTE PATIENT: Leroy Torres : 1955 Transplant ID: Date: 09/01/2020 Patient: Leroy Torres Transplant Date: 02/29/2008 Organ(s) Kidney Algaaciq organ diagnosis: Diabetes Mellitus - Type II From Transplant: 12 1/2 years ID: This is a 65 yo white male with a history of ESRD secondary to diabetic nephropathy s/p DD renaltransplant on 02/29/08 who returns to clinic for ongoing care of his transplanted kidney and ckd stage4 (GFR mid 20s). Interim Hx: Abdulkadir returned to clinic with his . Abdulkadir developed V/ zoster of his mid thoracic chest and back. He was treated for approximately one week with what he believes was acyclovir but remains in excessive painful radiculopathy. He cannot sleep because of it. Additionally his BPs are elevated, he believes due to pain, discomfort. He denies ED visits, admits, new allergies. He has not rec'd the COVID vaccine as of yet; he needs to register and I advised him how best to do that once all of his lesions have healed. He was admitted to [facility] in October 2018 for fluid overload and A fib.Abdulkadir denies anasarca, progressiveascites, edema beyond usual from his amputations and obesity. He is followed both by Dr. Hernandez for diabetes and Dr. Rojas for his neuropathy, autonomic instability. ?? Active Ambulatory Problems Diagnosis Date Noted [...] 09/20/2019 ??? PAF (paroxysmal atrial fibrillation) 11/15/2019 ?? Resolved Ambulatory Problems Diagnosis Date Noted ??? End stage renal disease 08/02/2006 ??? Wheelchair fitting or adjustment - Power Chair Evaluation 06/28/14 requested by Donell Hernandez MD 06/28/2014 ??? Wheelchair fitting or adjustment - Power Chair Evaluation 06/28/14 requested by Donell Hernandez MD 06/28/2014 ?? No Additional Past Medical History ? Past Surgical History Past Surgical History: Procedure Laterality Date ??? CREATED BY INTERFACE ? left BKA Procedure Date: Unknown ??? CREATED [...] BELOW-KNEE performed by HENNA GAMINO JR at [facility] MAIN OR ??? PRO LAP, APPENDECTOMY ?? 06/16/2013 ?? LAPAROSCOPIC APPENDECTOMY performed by Angel Mccann MD at [facility] MAIN OR ??? US RENAL TRANSPLANT LEFT Left 06/26/2019 ?? US Renal Transplant Left 06/26/2019 [facility] RAD ULTRASOUND ?? Healthcare maintenance for [...] done 03/21/2015 which was normal. Due again!! Algaaciq kidney ultrasound looking for renal cell CA, every 5 years post transplant - Due this year. Bone density assessment every 9-12 years post transplant ; has not been performed Annual fasting lipid profile Annual PTH-Vit D3 assessment until normalized Annual spot urine for creatinine, protein, calcium, phosphate, magnesium ?? Current Outpatient Medications: ??? CellCept 250 mg Capsule, TAKE TWO CAPSULES BY MOUTH TWICE A DAY, Disp: 360 capsule, Rfl: 1 ??? Prograf 0.5 mg Capsule, Take 1 capsule by mouth nightly., Disp: 30 capsule, Rfl: 11 ??? Prograf 1 mg Capsule, Take 1 capsule by mouth daily., Disp: 30 capsule, Rfl: 11 ??? hydrALAZINE (Apresoline) 100 mg Tablet, Take 1 tablet by mouth 3 times daily., Disp: 90 tablet, Rfl: 5 ??? FreeStyle Gilberto 14 Day Sensor Kit, 6 TIMES DAILY, Disp: 6 kit, Rfl: 3 ??? guaiFENesin 200 mg Tablet, Take 400 mg by mouth every 4 hours as needed for Congestion., Disp: ,Rfl: ??? Blood-Glucose Sensor (Dexcom G6 Sensor) Device, by [facility].(Non-Drug; Combo Route) route. Sensor, vice president sales and marketing andtransmitter, Disp: , Rfl: ??? calciTRIoL (Rocaltrol) [...] 3 ??? fluticasone propionate (FLONASE) 50 mcg/actuation Letcher, Suspension, INSTILL 2 SPRAYS INTO EACH NOSTRIL ONCE A DAY NEEDED, Disp: , Rfl: ??? triamcinolone (NASACORT or NASACORT OTC) 55 mcg Aerosol, Letcher, 2 sprays by Nasal route daily., Disp: [...] gauge x 1/2 Needle, 1 Device by [facility].(Non- Drug; Combo Route) route 3 times daily., [...] , Rfl: 1 ??? Miscellaneous Medical Supply [facility], 4 Devices by [facility].(Non-Drug; Combo Route) route daily. Rubbersheath for leg [...] by mouth daily., Disp: , Rfl: ??? gabapentin (Neurontin) 100 mg Capsule, Take 2 capsules by mouth 3 times daily for 89 days. Pt can increase dose by 100 mg each dose until neuropathic pain is managed. Max dose 1800 mg daily, Disp: 180 capsule, Rfl: 3 ??? losartan (Cozaar) 25 mg Tablet, Take 1 tablet by mouth daily., Disp: 90 tablet, Rfl: 3 ??? valACYclovir (Valtrex) 500 mg Tablet, Take 1 tablet by mouth 2 times daily for 10 days., Disp: 20 tablet, Rfl: 0 Immunization History Administered Date(s) Administered ??? Hepatitis B Vaccine, unspecified formulation 08/20/2004, 09/28/2004, 03/01/2005 ??? Influenza PF, Split 05/13/2016 ??? Influenza Vaccine, Whole 05/19/2005, 06/25/2008 ??? Pneumococcal Conjugate (13 Valent) 07/09/2015 ??? Pneumococcal Polyvalent 23 12/20/1996, 02/10/2007, 02/23/2012, 03/21/2019 ??? Td, adult 06/24/1990 ??? Tdap Vaccine 07/13/2013 Allergies Allergen Reactions ??? Penicillins Anaphylaxis ??? Iftikhar Inhibitors Cough ??? Clindamycin Hcl Rash ??? Allergenic Extracts Birch and Nut Trees, cats, dust, pollen bird feathers ??? Ibuprofen ??? Levemir [Insulin Detemir] Contraindicated - kidney transplant ??? Sulfamethoxazole-Trimethoprim ROS: Constitutional - No fevers, chills, weight [...] weakness. Positive for fluid retention of limbs ?? PHYSICAL EXAM: Vitals Office Visit from 09/01/2020 in Solid Organ Transplant at [facility] Weight 126.6 kg (279 lb 3.2 oz) Temp 36.8 ??C (98.2 ??F) Temp src Oral Heart Rate 76 BP 160/68 Patient Position Sitting Appearance - Awake and [...] - Normal speech. Left hand resting tremor. Results for ASIMBARBERLEROY Sania ABDULKADIR ( ) as of 09/09/2020 07:02 Ref. Range 09/01/2020 09:39 WBC Latest Ref [...] Note Tacrolimus Lvl Latest Units: ng/mL 4.0 ?? IMPRESSION/ RECOMMENDATIONS: 1. Graft function - [...] 0.5 mg BID and Cellcept 500mg BID. Hypertension started losartan 25 mg qAM 3. CKD stage 4- physiologic GFR appears to be 20 cc/min with a) renal osteodystrophy, anemia of CKD and RTA of CKD. GFR hard to interpret with bilateral BKAs. - Labs reviewed. Ca++ and Phos WNL. PTH elevated and likely in need of 1,25 dihydroxy vit D3 calcitriol to 1.0 mcg qd - hgb below 10, with poor retic response; will need to set up Procrit injections based upon BP and hgb - labs q 3 months, watch for progressive AG acidosis 4. Hyperlipidemia - Continue heart healthy diet. Continue Atorvastatin 20mg daily. 5. Diabetes - A1C 6.5 %. Working with Dr Hernandez to improve glycemic control. Healthy diet and regular physical activity (upper extremities etc) for weight loss discussed. Diet recs: 2000 mg salt, 75 gm protein 6. New onset AF dx October 2018, followed by Dr. Quispe 7.Healthcare maintenance - See section above. 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 Discussion with the patient and/or family concerned the following: ? Diagnostic results or recommended studies ? Prognosis; ? Risks and benefits of management; ? Instructions for management; ? Compliance with treatment; ? Risk factor reduction; ? Patient and family education. ?? Total time: 25 of 30 min in direct face to face awake overnight counselor. documented in this encounter Plan of Treatment Upcoming Encounters Date Type Specialty Care Team Description 05/26/2022 Office Visit Otolaryngology Ricardo Panda PA [facility] [address] [place], [place] [address] (Wo rk) 06/02/2022 Infusion Hematology and Oncology 06/16/2022 Infusion Hematology and Oncology 06/21/2022 Office Visit Neurology Tyler Rojas MD [facility] Neurology [place], [place] [phone] (Wo rk) 06/30/2022 Infusion Hematology and Oncology 07/14/2022 Infusion Hematology and Oncology 07/28/2022 Infusion Hematology and Oncology 08/11/2022 Infusion Hematology and Oncology 11/04/2022 Office Visit Rheumatology Dante Freedman PA [facility] RHEUMATOLOGY [place], [place] [address] (Wo rk) documented as of this encounter Results (ABNORMAL) Comprehensive metabolic panel (non-fasting) (09/01/2020 9:39 AM EST) P athologist Signature Glucose Lvl 144 65 - 199 [facility] mg/dL [facility] Comment: Diabetes: >=200 mg/dL plus symp toms BUN 39 (H) 10 - 20 mg/dL [facility] Creatinine 2.54 (H) 0.80 - 1.50 mg/dL [facility] Sodium 139 135 - 145 mmol/L [facility] Potassium 4.4 3.5 - 5.0 mmol/L [facility] Comment: Please note: ??Patients with WBC >100,00 0 may have falsely elevated Potassium levels. ??For accurate Potassium quantif ication in these patients send serum separator tube (gold top) for subsequent determinations. ??Contact the Clinical Chemistry Laboratory if there are any qu estions. Chloride 109 (H) 98 - 107 mmol/L [facility] CO2 20 (L) 22 - 31 mmol/L [facility] Anion Gap 10 5 - 15 mmol/L [facility] Calcium 9.3 8.5 - 10.5 mg/dL [facility] Total Protein 7.0 6.1 - 8.0 gm/dL [facility] Albumin 3.4 3.2 - 5.2 gm/dL [facility] AST 12 0 - 39 unit/L [facility] ALT 11 0 - 55 unit/L [facility] Alk Phos 112 40 - 130 unit/L [facility] Total Bilirubin 0.2 0.2 - 1.3 mg/dL [facility] Estimated GFR 25 (L) >=60 mL/min/1.73 m?? [facility] Comment: This patient? s estimated [...] Garnett MD CHEMISTRY ORDERABLES Performing Organization Address City/[facility]/ZIP Code Phon e Number [address] Magnesium (09/01/2020 9:39 AM EST) P athologist Signature Magnesium 0.73 0.69 - 1.07 [facility]/L [facility] Specimen Anatomical Collection Method Collection Time Receive d Time (Source) Location / / Volume Laterality Blood specimen 09/01/2020 9:39 AM 9:49 (specimen) EST AM EST Resulting Agency Comment Spec In Lab Alejo Garnett MD CHEMISTRY ORDERABLES Performing Organization Address City/[facility]/ZIP Code Phon e Number [address] Phosphorus (09/01/2020 9:39 AM EST) P athologist Signature Phosphorus 3.6 2.5 - 4.5 JERE MELI mg/dL [facility] Specimen Anatomical Collection Method Collection Time Receive d Time (Source) Location / / Volume Laterality Blood specimen 09/01/2020 9:39 AM 021 9:49 (specimen) EST AM EST Resulting Agency Comment Spec In Lab Alejo Garnett MD CHEMISTRY ORDERABLES Performing Organization Address City/[facility]/ZIP Code Phon e Number [address] Uric acid (09/01/2020 9:39 AM EST) P athologist Signature Uric Acid 7.3 3.5 - 8.5 [facility] MELI mg/dL [facility] Specimen Anatomical Collection Method Collection Time Receive d Time (Source) Location / / Volume Laterality Blood specimen 09/01/2020 9:39 AM 9:49 (specimen) EST AM EST Resulting Agency Comment Spec In Lab Alejo Garnett MD CHEMISTRY ORDERABLES Performing Organization Address City/[facility]/[place] [address] Tacrolimus level (09/01/2020 9:39 AM EST) athologist Signature Tacrolimus Lvl 4.0 ng/mL [facility] Comment: Please be advised that [...] Garnett MD CHEMISTRY ORDERABLES Performing Organization Address City/[facility] Phon e Number [address] Reticulocyte Count (09/01/2020 9:39 AM EST) athologist Signature Retic Ct % 2.0 0.7 - 2.6 [facility] Retic Ct Abs 0.060 0.030 - [facility] 0.120 [facility] x10(6)/[facility] LABORATORY Immature Retic% 12.1 0.0 - 15.6 [facility] Reticulated Hgb 33.8 31.3 - [facility] 40.2 [facility] LABORATORY Specimen Anatomical Collection Method Collection Time Receive d Time (Source) Location / / Volume Laterality Blood specimen 09/01/2020 9:39 AM 9:49 (specimen) EST AM EST Resulting Agency Comment Spec In Lab Alejo Garnett MD HEMATOLOGY ORDERABLES Performing Organization Address City/[facility]/ZIP [facility] Phon e Number [address] Cholesterol, total (09/01/2020 9:39 AM EST) athologist Signature Chol, Total 92 mg/dL [facility] Comment: Lower Risk: <200 mg/dL Average Risk: 200-239 mg/dL Higher Risk: >mu=343 mg/dL Lipid Interpretation See Note [facility] Comment: Lipid management should be guided by a p atient? s ASCVD risk, goals and preferences. ACC/AHA Guidelines recommend high intens ity statin if clinical ASCVD or LDL greater than or equal to 190 mg/dL. http://Agentek.com/EZC-MUH-Kbvlbqbgc Adults aged 40-75 with LDL 70-189 mg/dL should have their 10 year ASCVD risk estimated with the ACC/AHA ASCVD risk es timator http://tools.acc.org/JLFNG-Aabv-Bhnyqryg r/ Statin should be discussed if risk [...] Organization Address City/State/[place] [address] documented in this encounter Visit Diagnoses Diagnosis H/O kidney transplant Kidney replaced by transplant CKD (chronic kidney disease) stage 4, GF R 15-29 ml/min Chronic kidney disease, Stage IV (severe ) Anemia of chronic renal failure, stage 4 (severe) Renal tubular acidosis Other specified disorders resulting from impaired renal function Aftercare following organ transplant Other postherpetic nervous system involv ement Renal osteodystrophy documented in this encounter Care Teams Commercial Fishing Vessel Operator Relationship Specialty Start Date End Date Violetta Sanford MD PCP - General 04/02/14 [address] [place] [address] documented as of this encounter
--- OUTSIDE RECORDS SUMMARY | 2022-05-24 10:51 | XMS_ITS | Encounter Summary ---
:1955 Author Organization [facility] [place] [address] Care Team Providers Name Role Phone Violetta Sanford MD Primary Care Provider Reason for Visit Reason Comments Medication Refill Encounter Details Date Type Department Care Team Description 05/12/2020 Refill Endocrinology at [facility] Donell Hernandez MD [facility] [place] [address] ENDOCRINOLOGY DEPT. [phone] [place], [place] [address] (Wo rk) Social History Tobacco [...] Ricardo Panda PA [facility] [address] [place], [place] [address] (Wo rk) 06/02/2022 Infusion Hematology and Oncology 06/16/2022 Infusion Hematology and Oncology 06/21/2022 Office Visit Neurology Tyler Rojas MD [facility] er Neurology [place], [place] [phone] (Wo rk) 06/30/2022 Infusion Hematology and Oncology 07/14/2022 Infusion Hematology and Oncology 07/28/2022 Infusion Hematology and Oncology 08/11/2022 Infusion Hematology and Oncology 11/04/2022 Office Visit Rheumatology Dante Freedman PA [facility] RHEUMATOLOGY [place], [place] [address] (Wo rk) documented as of this encounter Visit Diagnoses Not on filedocumented in this encounter Care Teams Off Premise Service Representative Relationship Specialty Start Date End Date Violetta Sanford MD PCP - General 04/02/14 [address] [place] [address] documented as of this encounter
--- OUTSIDE RECORDS SUMMARY | 2022-05-24 10:51 | XMS_ITS | Encounter Summary ---
:1955 Author Organization [facility] [place] [address] Care Team Providers Name Role Phone Violetta Sanford MD Primary Care Provider Encounter Details Date Type Department Care Team Description 06/24/2020 Office Visit Endocrinology at [facility] Donell Hernandez, Type 2 diabetes mellitus wit h hyperglycemia, with long-term current use of insulin; [facility] S/P bilateral BKA (below knee amputation ); [facility] CKD (chronic kidney disease) stage 4, GFR 15-29 ml/[place] [address] CENTER [phone] ENDOCRINOLOGY DEPT. [place], [place] [address] Social History Tobacco Use Types Packs/Day Years [...] Sign Reading Time Taken Comments Blood Pressure 148/53 06/24/2020 12:23 PM EST Pulse 80 06/24/2020 12:23 PM EST Temperature 36.6 ??C (97.8 ??F) 06/24/2020 12:23 PM EST Respiratory Rate - - Oxygen Saturation 98% 06/24/2020 12:23 PM EST Inhaled Oxygen Concentration - - Weight 136.1 kg (300 lb) 06/24/2020 12:23 PM EST Height 186.7 cm (6' 1.5) 06/24/2020 12:23 PM EST Body Mass Index 39.04 06/24/2020 12:23 PM EST documented in this encounter Progress Notes Donell Hernandez MD - 06/24/2020 1:00 PM EST Year of diagnosis: Regimen ____ [...] bilateral bka R and morbid obesity. From Aug 2019 1) DM2 - this shows reasonable control on this regimen, especially with a recent illness - no change 2)CKD3 - in transplant - slowly deteriorating fmunction 3) retinopathy - quiet at present 4) history of renal transplant- is immunocompromised Interim history function of renal transplant is declining slowly but steadily On victoza 1.8, no nausea Recent HA1c was very good - 6.7 % Not using cpap Mother in October 2019 No stump ulcers. Able to walk but 'not too far- gets little exercise Regimen Basal levemir 60/60 bid victoza 1.8 Bolus humalog 35units per meal CF 1:4 Uses a sliding scale hbgm 4 x a day 130-200 most days for fbs Hypo none Diet B Baked donut Sn Bagel L Eng muffin Sn D Spaghetti Sn cookies Exercise Tries to be active complications Eyes prior laser therapy Feet Bilateral BKA Kidneys + renal transplant autonomic: no gastroparesis bladder hypo unaware tachycardia cardiac no chest pain on exertion no shortness of breath at rest No history of stent cabg chf prevention: last eye exam: july microalbumin :2011 last Cr: today last lipid panel:2011 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 eyes: no retinopathy seen by green light feet: bilateral bka Recent Results (from the past 24 hour(s)) Hemoglobin A1c Result Value Ref Range Hemoglobin A1C 6.4 (H) 4.3 - 5.6 % Est Avg Gluc 136 mg/dL TSH Result Value Ref Range TSH 2.03 0.27 - 4.20 mcIU/mL Creatinine Result Value Ref Range Creatinine 2.48 (H) 0.80 - 1.50 mg/dL Estimated GFR 26 (L) >=60 mL/min/1.73 m?? Ref. Range 08/29/2019 10:04 06/24/2020 10:57 Hemoglobin A1C Latest Ref Range: 4.3 - 5.6 % 7.9 (H) 6.4 (H) Ref. Range 07/09/2019 00:00 07/16/2019 00:00 08/29/2019 10:04 06/24/2020 10:57 Creatinine : 0.80 - 1.50 mg/dL 2.37 (H) 2.37 (H) 2.48 (H) Estimated GFR : >=60 mL/min/1.73 m?? 27.62 27.62 26 (L) 1) DM2 -he now has superb control. [...] Ricardo Panda PA [facility] [place], [place] [address] (Wo rk) 06/02/2022 Infusion Hematology and Oncology 06/16/2022 Infusion Hematology and Oncology 06/21/2022 Office Visit Neurology Tyler Rojas MD [facility] Neurology [place], [place] [phone] (Wo rk) 06/30/2022 Infusion Hematology and Oncology 07/14/2022 Infusion Hematology and Oncology 07/28/2022 Infusion Hematology and Oncology 08/11/2022 Infusion Hematology and Oncology 11/04/2022 Office Visit Rheumatology Dante Freedman PA [facility] [place] [address] (Wo rk) documented as of this encounter Results (ABNORMAL) Hemoglobin A1c (09/01/2020 9:39 AM EST) Analysis Performed At [facility] Time Signature Hemoglobin A1C 6.5 (H) 4.3 - 5.6 [facility] [...] Mellitus, Diabetes Care 2013; 36: Suppl. 1, Y47-90 Est Avg Gluc 140 mg/dL [facility] Comment: eAG equivalents for HbA1c percentages: HbA1c(%) ?eAG(mg/dL) 6.0 ?126 6.5 ?140 7.0 ?154 7.5 ?169 8.0 ?183 8.5 ?197 9.0 ?212 9.5 ?226 10.0 ? 240 Limitations: The eAG calculation has not been validated on women, individuals below 18 years old and above 70 years old, and individuals with hemoglobinopathies. Additional resources are available on [facility] ADA website. Scooby MALDONADO, bNa J, Sydnee R, et al. ??Tr anslating the A1C assay into estimated average glucose values. ??Diabetes Care 2008:31(8):9981-1051. Specimen Anatomical Collection Method Collection Time Receive d Time (Source) Location / / Volume Laterality Blood specimen 09/01/2020 9:39 AM 021 9:49 (specimen) EST AM EST Resulting Agency Comment Spec In Lab Donell Hernandez MD CHEMISTRY ORDERABLES Performing Organization Address City/State/[place] [address] documented in this encounter Visit Diagnoses Diagnosis Type 2 diabetes mellitus with hyperglyce maki, with long-term current use of insulin S/P bilateral BKA (below knee amputation ) Lower limb amputation, below knee CKD (chronic kidney disease) stage 4, GF R 15-29 ml/min Chronic kidney disease, Stage IV (severe ) documented in this encounter Care Teams Stripper Latex Relationship Specialty Start Date End Date Violetta Sanford MD PCP - General 04/02/14 [address] [facility] [address] [place] [address] documented as of this encounter
--- OUTSIDE RECORDS SUMMARY | 2022-05-24 10:51 | XMS_ITS | Encounter Summary ---
:1955 Author Organization [facility] [place] [address] Care Team Providers Name Role Phone Violetta Sanford MD Primary Care Provider Encounter Details Date Type Department Care Team Description 07/13/2019 External Results Neurology at [facility] Shivam Rojas [facility] [place] [address] Neurology [phone] [place], [place] [address] (Wo rk) Social History [...] Ricardo Panda PA [facility] Dr [place] [address] (Wo rk) 06/02/2022 Infusion Hematology and Oncology 06/16/2022 Infusion Hematology and Oncology 06/21/2022 Office Visit Neurology Tyler Rojas MD [facility] er Neurology [place], [place] [address] (Wo rk) 06/30/2022 Infusion Hematology and Oncology 07/14/2022 Infusion Hematology and Oncology 07/28/2022 Infusion Hematology and Oncology 08/11/2022 Infusion Hematology and Oncology 11/04/2022 Office Visit Rheumatology Dante Freedman PA [facility] ER RHEUMATOLOGY [place], [place] [address] (Wo rk) documented as of this encounter Procedures Procedure Name Priority Date/Time Associated Diagnosis Comme nts MAGNESIUM Routine 07/10/2019 Results for thi s procedure are i n the results section . CBC (WITH DIFF) Routine 07/09/2019 Results for this procedure are i n the results section . CHOLESTEROL, TOTAL Routine 07/09/2019 Results f or this procedure are i n the results section . COMPREHENSIVE METABOLIC Routine 07/09/2019 Resu lts for this PANEL (NON-FASTING) procedur e are in the results section . documented in this encounter Results (ABNORMAL) Magnesium (07/10/2019) athologist Signature Magnesium 1.5 (L) mg/dL Specimen (Source) Anatomical Location Collection Method / Collectio n Time Received Time / Laterality Volume Blood specimen 07/10/2019 (specimen) Historical Provider CHEMISTRY ORDERABLES Cholesterol, total (07/09/2019) athologist Signature Chol, Total 103 Specimen (Source) Anatomical Location Collection Method / Collectio n Time Received Time / Laterality Volume Blood specimen 07/09/2019 (specimen) Historical Provider CHEMISTRY ORDERABLES (ABNORMAL) Comprehensive metabolic panel (non-fasting) (07/09/2019) [facility] Signature Glucose Lvl 159 (H) BUN 40 (H) Creatinine 2.37 (H) Estimated GFR 27.62 Sodium 140 Potassium 5.2 (H) Chloride 107 CO2 23 Calcium 9.0 Total Protein 7.8 Albumin 3.1 (L) Total Bilirubin 0.5 Alk Phos 147 (H) AST 13 (L) ALT 18 Anion Gap 10 Uric Acid 8.2 (H) Phosphorus 3.7 Specimen (Source) Anatomical Location Collection Method / Collectio n Time Received Time / Laterality Volume Blood specimen 07/09/2019 (specimen) Historical Provider CHEMISTRY ORDERABLES (ABNORMAL) CBC (with Diff) (07/09/2019) P athologist Signature WBC 7.11 RBC 3.76 (L) Hemoglobin 11.5 (L) Hematocrit 36.4 (L) MCV 96.8 (H) MCH 30.6 MCHC 31.6 (L) RDWCV 14.0 Platelets 210 MPV 8.6 Specimen (Source) Anatomical Location Collection Method / Collectio n Time Received Time / Laterality Volume Blood specimen 07/09/2019 (specimen) Historical Provider HEMATOLOGY ORDERABLES documented in this encounter Visit Diagnoses Not on filedocumented in this encounter Care Teams Mud Mixer Operator Relationship Specialty Start Date End Date Violetta Sanford MD PCP - General 04/02/14 [address] [place] [address] documented as of this encounter
--- OUTSIDE RECORDS SUMMARY | 2022-05-24 10:51 | XMS_ITS | Encounter Summary ---
:1955 Author Organization [facility] [place] [address] Care Team Providers Name Role Phone Violetta Sanford MD Primary Care Provider Encounter Details Date Type Department Care Team Description 07/03/2019 Telephone Neurology at [facility] Shivam Rojas MD [place] [address] Neurology [phone] [place], [place] [address] (Wo rk) Social History [...] this encounter Miscellaneous Notes Telephone Encounter - Aliza Joseph RN - 07/03/2019 3:31 PM EST Called [facility] and obtained the results of the Prograf levels drawn on 07/02/19. The result is 6.3 nanograms per ml. Results emailed to and for review. documented in this encounter Plan of Treatment Upcoming Encounters Date Type Specialty Care Team Description 05/26/2022 Office Visit Otolaryngology Ricardo Panda PA [facility] [place], [place] [address] (Wo rk) 06/02/2022 Infusion Hematology and Oncology 06/16/2022 Infusion Hematology and Oncology 06/21/2022 Office Visit Neurology Tyler Rojas MD [facility] Neurology [place], [place] [address] (Wo rk) 06/30/2022 Infusion Hematology and Oncology 07/14/2022 Infusion Hematology and Oncology 07/28/2022 Infusion Hematology and Oncology 08/11/2022 Infusion Hematology and Oncology 11/04/2022 Office Visit Rheumatology Dante Freedman PA [facility] RHEUMATOLOGY [place], [place] [address] (Wo rk) documented as of this encounter Visit Diagnoses Not on filedocumented in this encounter Care Teams Geophysical Laboratory Supervisor Relationship Specialty Start Date End Date Violetta Sanford MD PCP - General 04/02/14 [address] [place] [address] documented as of this encounter
--- OUTSIDE RECORDS SUMMARY | 2022-05-24 10:51 | XMS_ITS | Encounter Summary ---
:1955 Author Organization [facility] [place] [address] Care Team Providers Name Role Phone Violetta Sanford MD Primary Care Provider Reason for Referral Consultation (Routine) - Closed Specialty Diagnoses / Procedures Referred By Contact Refer red To Contact Endocrinology Diagnoses Type 2 diabetes mellitus with hyperglycemia, with long-term current use of insulin Donell Hernandez MD Kline, Erika L, [facility] D [facility] [place] [address] [place] [address] Referral ID Status Reason Start Date Expiration Date Visits V isits Requested Authorized [id number] Closed Consult, 09/12/2019 09/11/2020 1 1 Test & Treat Encounter Details Date Type Department Care Team Description 09/12/2019 Orders Only Endocrinology at [facility] Donell Hardin, Type 2 diabetes [facility] Giovana tyler [place] [address] [facility], with [phone] CENTER long-term current use ENDOCRINOLOGY of insulin DEPT. [place], [place] [address] Social History Tobacco Use Types [...] Visit Otolaryngology Ricardo Panda PA [facility] er Dr [place], [place] [address] (Wo rk) 06/02/2022 Infusion Hematology and Oncology 06/16/2022 Infusion Hematology and Oncology 06/21/2022 Office Visit Neurology Tyler Rojas MD [facility] Neurology [place], [place] [address] (Wo rk) 06/30/2022 Infusion Hematology and Oncology 07/14/2022 Infusion Hematology and Oncology 07/28/2022 Infusion Hematology and Oncology 08/11/2022 Infusion Hematology and Oncology 11/04/2022 Office Visit Rheumatology Dante Freedman PA [facility] ER RHEUMATOLOGY [place], [place] [address] (Wo rk) Scheduled Referrals Name [...] insulin documented in this encounter Care Teams Agricultural Specialist Relationship Specialty Start Date End Date Violetta Sanford MD PCP - General 04/02/14 [address] [place] [address] documented as of this encounter
--- OUTSIDE RECORDS SUMMARY | 2022-05-24 10:51 | XMS_ITS | Encounter Summary ---
:1955 Author Organization [facility] [place] [address] Care Team Providers Name Role Phone Violetta Sanford MD Primary Care Provider Encounter Details Date Type Department Care Team Description 07/10/2019 Telephone Neurology at [facility] Shivam Rojas MD [facility] [place] [address] Neurology [phone] [place], [place] [address] (Wo rk) Social History [...] this encounter Miscellaneous Notes Telephone Encounter - Ailza Joseph RN - 07/10/2019 3:23 PM EST Called [facility] laboratory and obtained results for the prograf level drawn on 07/09/19. The result is 5.2 nanograms/ml. Results sent to and . documented in this encounter Plan of Treatment Upcoming Encounters Date Type Specialty Care Team Description 05/26/2022 Office Visit Otolaryngology Ricardo Panda PA [facility] Dr [place], [place] [address] (Wo rk) 06/02/2022 Infusion Hematology and Oncology 06/16/2022 Infusion Hematology and Oncology 06/21/2022 Office Visit Neurology Tyler Rojas MD [facility] Neurology [place], [place] [address] (Wo rk) 06/30/2022 Infusion Hematology and Oncology 07/14/2022 Infusion Hematology and Oncology 07/28/2022 Infusion Hematology and Oncology 08/11/2022 Infusion Hematology and Oncology 11/04/2022 Office Visit Rheumatology Dante Freedman PA [facility] RHEUMATOLOGY [place], [place] [address] (Wo rk) documented as of this encounter Visit Diagnoses Not on filedocumented in this encounter Care Teams Security Analyst Relationship Specialty Start Date End Date Violetta Sanford MD PCP - General 04/02/14 [address] [place] [address] documented as of this encounter
--- OUTSIDE RECORDS SUMMARY | 2022-05-24 10:51 | XMS_ITS | Encounter Summary ---
:1955 Author Organization [facility] [place] [address] Care Team Providers Name Role Phone Violetta Sanford MD Primary Care Provider Reason for Visit Reason Onset Date Comments Other 02/19/2020 Encounter Details Date Type Department Care Team Description 02/19/2020 Telephone Endocrinology at [facility] [place] [address] Social History Tobacco Use Types Packs/Day [...] this encounter Miscellaneous Notes Telephone Encounter - Tanya Haro - 02/19/2020 10:01 AM EDT Caller and relationship to patient (if other than patient): Patient Best time to reach caller: any Message or Reason for Call: Patient is calling wondering 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 Appt Needed and Reason: n/a Provider: Donell Hernandez documented in this encounter Plan of Treatment Upcoming Encounters Date Type Specialty Care Team Description 05/26/2022 Office Visit Otolaryngology Ricardo Panda PA [facility] er [place], [place] [address] (Wo rk) 06/02/2022 Infusion Hematology and Oncology 06/16/2022 Infusion Hematology and Oncology 06/21/2022 Office Visit Neurology Tyler Rojas MD [facility] Neurology [place], [place] [address] (Wo rk) 06/30/2022 Infusion Hematology and Oncology 07/14/2022 Infusion Hematology and Oncology 07/28/2022 Infusion Hematology and Oncology 08/11/2022 Infusion Hematology and Oncology 11/04/2022 Office Visit Rheumatology Dante Freedman PA [facility] RHEUMATOLOGY [place], [place] [address] (Wo rk) documented as of this encounter Visit Diagnoses Not on filedocumented in this encounter Care Teams Sales Consultant Relationship Specialty Start Date End Date Violetta Sanford MD PCP - General 04/02/14 [address] [place] [address] documented as of this encounter
--- OUTSIDE RECORDS SUMMARY | 2022-05-24 10:51 | XMS_ITS | Encounter Summary ---
:1955 Author Organization [facility] [place] [address] Care Team Providers Name Role Phone Violetta Sanford MD Primary Care Provider Encounter Details Date Type Department Care Team Description 08/03/2019 Ancillary Procedure Radiology Library at Violetta Sanford MD [address] [place] [address] [phone] (Wo rk) Social History Tobacco Use Types [...] PA [facility] Dr [place] [address] (Wo rk) 06/02/2022 Infusion Hematology and Oncology 06/16/2022 Infusion Hematology and Oncology 06/21/2022 Office Visit Neurology Tyler Rojas MD [facility] Neurology [place], [place] [address] (Wo rk) 06/30/2022 Infusion Hematology and Oncology 07/14/2022 Infusion Hematology and Oncology 07/28/2022 Infusion Hematology and Oncology 08/11/2022 Infusion Hematology and Oncology 11/04/2022 Office Visit Rheumatology Dante Freedman PA [facility] RHEUMATOLOGY [place], [place] [address] (Wo rk) documented as of this encounter Procedures Procedure Name Priority Date/Time Associated Diagnosis Comme nts FILM LIBRARY - Routine 08/03/2019 12:00 AM Result s for this STORAGE ONLY CT EST procedure ar e in NECK the results section. documented in this encounter Results Film Library- Storage Only CT Neck (08/03/2019 12:00 AM EST) Specimen (Source) Anatomical Location Collection Method / Collectio n Time Received Time / Laterality Volume Narrative CAITLIN - 11/04/2021 4:26 PM EDT This exam is auto-finalizing. It's purpo se is for storage only. Violetta Sanford MD IMG FILM LIBRARY ORDERABLES Performing Organization Address City/State/ZIP Code Phon e Number [place], [place] documented in this encounter Visit Diagnoses Not on filedocumented in this encounter Care Teams Manager Security And Safety Relationship Specialty Start Date End Date Violetta Sanford MD PCP - General 04/02/14 [address] [place] [address] documented as of this encounter
--- OUTSIDE RECORDS SUMMARY | 2022-05-24 10:51 | XMS_ITS | Encounter Summary ---
:1955 Author Organization [facility] [place] [address] Care Team Providers Name Role Phone Violetta Sanford MD Primary Care Provider Reason for Referral Consultation (Routine) - Specialty Diagnoses / Procedures Referred By Contact Refer red To Contact Neurology Diagnoses Paresthesia of both hands Dante Freedman PA [facility] Neurology [address] [place] [address] [place] [address] [place] [id number] Referral ID Status Reason Start Date Expiration Date Visits V isits Requested Authorized [id number] Consult, 05/15/2020 11/11/2020 1 1 Test & Treat Encounter Details Date Type Department Care Team Description 05/15/2020 Orders Only Rheumatology at [facility] Dante Freedman Paresthesia of both [facility] DA Gilbert hands (Primary Dx) [place] [address] RHEUMATOLOGY [place], [place] [address] Social History Tobacco Use Types [...] Visit Otolaryngology Ricardo Panda PA [facility] er Dr [place], [place] [address] (Wo rk) 06/02/2022 Infusion Hematology and Oncology 06/16/2022 Infusion Hematology and Oncology 06/21/2022 Office Visit Neurology Tyler Rojas MD [facility] Dr [address] [place], [place] [address] (Wo rk) 06/30/2022 Infusion Hematology and Oncology 07/14/2022 Infusion Hematology and Oncology 07/28/2022 Infusion Hematology and Oncology 08/11/2022 Infusion Hematology and Oncology 11/04/2022 Office Visit Rheumatology Dante Freedman PA [facility] RHEUMATOLOGY [place], [place] [address] (Wo rk) Scheduled Referrals Name Type Priority Associated Diagnoses Order S chedule Referral to Outpatient Referral Routine Paresthesia of both O rdered: Neurology hands 05/15/2020 documented as of this encounter Visit Diagnoses Diagnosis Paresthesia of both hands - Primary documented in this encounter Care Teams City Supervisor Relationship Specialty Start Date End Date Violetta Sanford MD PCP - General 04/02/14 [address] [place] [address] documented as of this encounter
--- OUTSIDE RECORDS SUMMARY | 2022-05-24 10:51 | XMS_ITS | Encounter Summary ---
:1955 Author Organization [facility] [place] [address] Care Team Providers Name Role Phone Violetta Sanford MD Primary Care Provider Encounter Details Date Type Department Care Team Description 07/06/2019 External Results Neurology at [facility] Shivam [facility]jas [facility] [place] [address] Neurology [phone] [place], [place] [address] (Wo rk) Social History [...] PA [facility] Dr [place] [address] (Wo rk) 06/02/2022 Infusion Hematology and Oncology 06/16/2022 Infusion Hematology and Oncology 06/21/2022 Office Visit Neurology Tyler Rojas MD [facility] er Neurology [place], [place] [address] (Wo rk) 06/30/2022 Infusion Hematology and Oncology 07/14/2022 Infusion Hematology and Oncology 07/28/2022 Infusion Hematology and Oncology 08/11/2022 Infusion Hematology and Oncology 11/04/2022 Office Visit Rheumatology Dante Freedman PA [facility] ER RHEUMATOLOGY [place], [place] [address] (Wo rk) documented as of this encounter Procedures Procedure Name Priority Date/Time Associated Diagnosis Comme nts TACROLIMUS LEVEL Routine 07/02/2019 Results for this procedure are in the resu lts section. documented in this encounter Results Tacrolimus level (07/02/2019) P athologist Signature Tacrolimus Lvl 6.3 Specimen (Source) Anatomical Location Collection Method / Collectio n Time Received Time / Laterality Volume Blood specimen 07/02/2019 (specimen) Historical Provider CHEMISTRY ORDERABLES documented in this encounter Visit Diagnoses Not on filedocumented in this encounter Care Teams Combo Welder Relationship Specialty Start Date End Date Violetta Sanford MD PCP - General 04/02/14 [address] [place] [address] documented as of this encounter
--- OUTSIDE RECORDS SUMMARY | 2022-05-24 10:51 | XMS_ITS | Encounter Summary ---
:1955 Author Organization [facility] [address] Care Team Providers Name Role Phone Violetta Sanford MD Primary Care Provider Reason for Visit Reason Onset Date Comments Pump/sensor 05/19/2020 Encounter Details Date Type Department Care Team Description 05/19/2020 Telephone Endocrinology at [facility] Leny Kohler Pump/[place] [address] Social History Tobacco Use Types Packs/Day [...] Notes Telephone Encounter - Leny Morales - 05/27/2020 2:31 PM EST Confirmed 05/22 Telephone Encounter - Leny Morales - 05/19/2020 8:38 AM EDT Doctor order received from [facility]. Filled out. Office note printed Dr. Comi will sign. I will fax. documented in this encounter Plan of Treatment Upcoming Encounters Date Type Specialty Care Team Description 05/26/2022 Office Visit Otolaryngology Ricardo Panda PA [facility] Dr [place], [place] [address] (Wo rk) 06/02/2022 Infusion Hematology and Oncology 06/16/2022 Infusion Hematology and Oncology 06/21/2022 Office Visit Neurology Tyler Rojas MD [facility] Neurology [place], [place] [address] (Wo rk) 06/30/2022 Infusion Hematology and Oncology 07/14/2022 Infusion Hematology and Oncology 07/28/2022 Infusion Hematology and Oncology 08/11/2022 Infusion Hematology and Oncology 11/04/2022 Office Visit Rheumatology Dante Freedman PA [facility] RHEUMATOLOGY [place], [place] [address] (Wo rk) documented as of this encounter Visit Diagnoses Not on filedocumented in this encounter Care Teams Helicopter Specialist Relationship Specialty Start Date End Date Violetta Sanford MD PCP - General 04/02/14 [address] [place] [address] documented as of this encounter
--- OUTSIDE RECORDS SUMMARY | 2022-05-24 10:51 | XMS_ITS | Encounter Summary ---
:1955 Author Organization [facility] Address [place] [id number] Care Team Providers Name Role Phone Violetta Sanford MD Primary Care Provider Reason for Referral Diagnostic Test (Routine) - Closed Specialty Diagnoses / Procedures Referred By Contact Refer red To Contact Cardiology Diagnoses PAF (paroxysmal atrial fibrillation) J Luis Quispe MD [facility] Card[facility] 4a Procedures [facility] [place] [address] [place] [address] Referral ID Status Reason Start Date Expiration Date Visits V isits Requested Authorized [id number] Closed Specialty 08/16/2019 09/03/2019 1 1 Service Requested Reason for Visit Diagnostic Test (Routine) - Closed Specialty Diagnoses / Procedures Referred By Contact Refer red To Contact Cardiology Diagnoses PAF (paroxysmal atrial fibrillation) J Luis Quispe MD [facility] Card[facility] 4a Procedures [facility] [place] [address] [place] [address] Referral ID Status Reason Start Date Expiration Date Visits V isits Requested Authorized [id number] Closed Specialty 08/16/2019 09/03/2019 1 1 Service Requested Encounter Details Date Type Department Care Team Description 08/16/2019 Hospital Encounter Non-Invasive J Luis Quispe PAF ( paroxysmal Cardiology Lab Sylvia Dsouza MD atrial [facility] fib rillation) [facility] [place] [address] [place] [phone] (Work) [phone] Social History Tobacco Use Types Packs/Day Years [...] mg(2.5 mg base)/3 mL Solution for Nebulization multivitamin with Take 1 tablet by mouth [...] (FOLVITE) Take 2 tablets by 180 tablet 02/04/20 17 1 mg Tablet mouth daily. omeprazole (PRILOSEC) Take 1 capsule by 90 capsule 3 017 40 mg Capsule, mouth daily. Delayed Release(E.C.) acetaminophen Take 650 mg by mouth 0 (TYLENOL) 325 mg every 4 hours as Tablet needed for Pain. Reported on 08/06/2016 Miscellaneous Medical 4 Devices by 4 each 0 12/02/2015 Supply [facility].(Non-Drug; Combo MiscIndications: S/P Route) route daily. 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 metoprolol succinate Take 1 tablet by mouth 90 tablet 3 01/02/2020 XL (Toprol-XL) 25 mg daily. Tablet Sustained Release 24 hr guaiFENesin 200 mg Take 200 mg by mouth 0 019 04/07/2020 Tablet daily. losartan (COZAAR) 50 Take one tablet by 30 tablet 11 019 08/29/2019 mg Tablet mouth every evening with a 25 mg tablet primidone (MYSOLINE) Take 1 tablet by mouth 120 tablet 3 09/201810/26/2021 50 mg Tablet 4 times daily. Start 1/2 tablet at night and increase as directed PROGRAF 1 mg Take 1 capsule by 90 capsule 3 06/11/201905/26 CapsuleIndications: mouth daily. Kidney Transplanted kidney transplant 02/29/2008 Z94.0 PROGRAF 0.5 mg Take 1 capsule by 90 capsule 3 06/11/201908/2019 Capsule mouth every evening. Kidney transplant 02/29/2008 Z94.0 CELLCEPT 250 mg TAKE TWO CAPSULES BY 360 capsule 3 9 02/26/2020 CapsuleIndications: MOUTH TWICE A DAY Transplanted kidney gabapentin TAKE 3 CAPSULES BY 810 capsule 0 06/30/201811/14 (NEURONTIN) 300 mg MOUTH 3 TIMES DAILY Capsule propranolol (INDERAL Take 1 capsule by 270 capsule 1 018 08/29/2019 LA) 160 mg mouth 3 times daily. Capsule,Sustained Action 24 hr cholecalciferol, Take 1 tablet by mouth 90 tablet 3 018 03/17/2022 Vitamin D3, 2,000 daily. unit TabletIndications: Vitamin D deficiency albuterol (PROVENTIL) Take 2.5 mg by 0 08/29/2019 2.5 mg /3 mL (0.083 nebulization every 4 %) Solution for hours as needed for Nebulization Wheezing. ipratropium-albuterol Take 3 mLs by 1 12/01/2015 11/19/2020 (DUONEB) 0.5 mg-3 nebulization 2 times mg(2.5 mg base)/3 mL daily. Solution for Nebulization STIOLTO RESPIMAT Inhale 2 puffs into 1 11/27/2015 05/27/2021 2.5-2.5 mcg/actuation the lungs daily. Mist VENTOLIN HFA 90 Inhale 2 puffs into 0 10/17/2015 05/27/2021 mcg/actuation HFA the lungs as needed. Aerosol Inhaler Insulin Lispro Inject 15-30 Units 0 (HUMALOG) 100 unit/mL subcutaneously 4 times Insulin Pen daily. fluticasone (FLONASE) 2 sprays by Each Nare 64 g 11 08/29/2019 50 mcg/actuation route as needed. nasal sprayIndications: Nasal sinus congestion, Type II or unspecified type diabetes mellitus with neurological manifestations, uncontrolled(250.62) MULTIVITS-MINERALS/FA Take by mouth daily. 0 08/29/2019 /LYCOPENE (ONE-A-DAY MEN'S MULTIVITAMIN ORAL) montelukast Take 10 mg by mouth 0 09/2020 (SINGULAIR) 10 mg daily. tablet documented as of this encounter Plan of Treatment Upcoming Encounters Date Type Specialty Care Team Description 05/26/2022 Office Visit Otolaryngology Ricardo Panda PA [facility] [place] [address] (Wo rk) 06/02/2022 Infusion Hematology and Oncology 06/16/2022 Infusion Hematology and Oncology 06/21/2022 Office Visit Neurology Tyler Rojas MD [facility] [place] [phone] (Wo rk) 06/30/2022 Infusion Hematology and Oncology 07/14/2022 Infusion Hematology and Oncology 07/28/2022 Infusion Hematology and Oncology 08/11/2022 Infusion Hematology and Oncology 11/04/2022 Office Visit Rheumatology Dante Freedman PA [facility] RHEUMAT[facility] [place] [address] (Wo rk) documented as of this encounter Procedures Procedure Name Priority Date/Time Associated Diagnosis Comme nts ZIOPATCH Routine 08/16/2019 11:27 AM PAF (paroxysmal Resul ts for this EST atrial fibrillation) procedu re are in the results section . documented in this encounter Results Ziopatch (08/16/2019 11:27 AM EST) Anatomical Region Laterality Modality Other Specimen (Source) Anatomical Location Collection Method / Collectio n Time Received Time / Laterality Volume Narrative 09/03/2019 10:23 PM EST [facility] ? Zio Patch? Ambulatory Cardiac Event Monitor Report Indication: paroxysmal atrial fibrillati on Duration of recording ? 1 day 7 hours Summary Data Predominant rhythm ? sinus rhythm with prolonged SD interval Minimum sinus rate 76 bpm Maximum sinus rate 108 bpm Average heart rate 83 bpm Atrial fibrillation none Ectopic beats 1.2% atrial premature beats (APC? s) <1% ventricular premature beats (VPC's) No runs of SVT were detected 2 episodes of nonsustained ventricular t achycardia were observed, the longest being 6 beats at 154 bpm. Triggered and Patient Diary Events There were 0 triggered and 0 patient emmanuelle ry events: Conclusion(s): ?? 1) Predominant rhythm is sinus. 2) No reported symptoms. 3) No atrial fibrillation is observed du ring this abbreviated recording. 4) Nonsustained ventricular tachycardia is observed. Fransico Chávez MD [facility] Cardiac Electrophysiology 09/03/2019 10:21 PM J Luis Qusipe MD CARDIAC SERVICES ORDERABLES documented in this encounter Visit Diagnoses Diagnosis PAF (paroxysmal atrial fibrillation) Atrial fibrillation documented in this encounter Care Teams Neck Skewer Relationship Specialty Start Date End Date Violetta Sanford MD PCP - General 04/02/14 [facility] [address] [place] [address] documented as of this encounter
--- OUTSIDE RECORDS SUMMARY | 2022-05-24 10:51 | XMS_ITS | Encounter Summary ---
:1955 Author Organization [facility] [place] [address] Care Team Providers Name Role Phone Violetta Sanford MD Primary Care Provider Encounter Details Date Type Department Care Team Description 01/02/2020 Refill Cardiology at [facility] Glory Salas, [facility] [place] [address] Social History Tobacco Use Types Packs/Day Years [...] this encounter Miscellaneous Notes Telephone Encounter - Glory Albarran RN - 01/02/2020 12:04 PM EDT RTC and LVM on pt's home machine to check with his pharmacy for prescriptions as they have been called in as he requested. Also requested pt to track BP's & Hr for 2 weeks and call us back with hisnumbers and let us know how he is doing. Telephone Encounter - Glory Albarran RN - 01/02/2020 9:55 AM EDT Pt called clinic today to advise that his BP's have been still elevated and he would like to know what he should do. Reviewed BP's with pt which he reports as the following: Sun 12/29- 154/65 Mon- 147/63 Today- 154/66 Reviewed last OV note with pt and advised the following from Dr. Quispe's note: If his SBP remains consistently > 140, would recommend the following changes: 1. Increase the hydralazine to 100 mg po TID (change to 100 mg tablet). 2. Increase the metoprolol to 50 mg and possibly 100 if needed. ?? Follow-up: 6 months with telehealth visit. Pt also voices that he is having problems with constipation and is now taking up to 5-6 stool softeners a day. Advised pt to replace his beverages with mostly water and to contact his PCP Dr. Len delvalle if she will prescribe anything else to assist with his bowels such as Benefiber or Miralax. Pt is in agreement with this plan and will contact his PCP for more guidance on managing his bowels. Pt will track his BP and HR with new medication increases and will call if he is having any side effects or if BP becomes too low. Advised pt that his target should be a systolic BP below 140. Pt verbalizesunderstanding and requests new prescriptions be sent to [facility] in [place] Rx's prepped and called to [facility] as requested. Phoned in prescriptions to [facility] in [place] Spoke with Alla, Curriculum And Instruction Director Pharmacist who requested NPI and then wanted CLEMENT. Advised these were not controlled medications and NPI was only MD ID needed for processing these medications. I declined to give out the CLEMENT at this time. Will forward this message to Dr. Quispe for his review and any further recommendations. documented in this encounter Plan of Treatment Upcoming Encounters Date Type Specialty Care Team Description 05/26/2022 Office Visit Otolaryngology Ricardo Panda PA [facility] [address] [place], [place] [address] (Wo rk) 06/02/2022 Infusion Hematology and Oncology 06/16/2022 Infusion Hematology and Oncology 06/21/2022 Office Visit Neurology Tyler Rojas MD [facility] er Neurology [place], [place] [phone] (Wo rk) 06/30/2022 Infusion Hematology and Oncology 07/14/2022 Infusion Hematology and Oncology 07/28/2022 Infusion Hematology and Oncology 08/11/2022 Infusion Hematology and Oncology 11/04/2022 Office Visit Rheumatology Dante Freedman PA [facility] RHEUMATOLOGY [place], [place] [address] (Wo rk) documented as of this encounter Visit Diagnoses Not on filedocumented in this encounter Care Teams Oak Tanner Relationship Specialty Start Date End Date Violetta Sanford MD PCP - General 04/02/14 [address] [place] [address] documented as of this encounter
--- OUTSIDE RECORDS SUMMARY | 2022-05-24 10:51 | XMS_ITS | Encounter Summary ---
:1955 Author Organization [facility] [place] [address] Care Team Providers Name Role Phone Violetta Sanford MD Primary Care Provider Encounter Details Date Type Department Care Team Description 03/26/2020 Telephone Solid Organ Transplant at Aisha Aceves [facility] James [employer] [address] Social History Tobacco Use Types Packs/Day Years [...] Telephone Encounter - Aisha Aceves LPN - 03/26/2020 11:55 AM EDT Spoke with Leroy to confirm that we received yearly lab results and want to schedule for a telehealth appt. Does not have my and does not have a working email address. Does have computer access. Willing to come into clinic for his yearly appt with Dr Garnett. Advised will notify secretary board of commissioners and will receive call regarding scheduling. Advised to call back kidney transplant clinic with any questions or updates. documented in this encounter Plan of Treatment Upcoming Encounters Date Type Specialty Care Team Description 05/26/2022 Office Visit Otolaryngology Ricardo Panda PA [facility] [place] [address] (Wo rk) 06/02/2022 Infusion Hematology and Oncology 06/16/2022 Infusion Hematology and Oncology 06/21/2022 Office Visit Neurology Tyler Rojas MD [facility] Neurology [place], [place] [phone] (Wo rk) 06/30/2022 Infusion Hematology and Oncology 07/14/2022 Infusion Hematology and Oncology 07/28/2022 Infusion Hematology and Oncology 08/11/2022 Infusion Hematology and Oncology 11/04/2022 Office Visit Rheumatology Dante Freedman PA [facility] RHEUMATOLOGY [place], [place] [address] (Wo rk) documented as of this encounter Visit Diagnoses Not on filedocumented in this encounter Care Teams Entry Level Electrical Engineer Relationship Specialty Start Date End Date Violetta Sanford MD PCP - General 04/02/14 [address] [place] [address] documented as of this encounter
--- OUTSIDE RECORDS SUMMARY | 2022-05-24 10:51 | XMS_ITS | Encounter Summary ---
:1955 Author Organization [facility] Address [address] [place] [address] Care Team Providers Name Role Phone Violetta Sanford MD Primary Care Provider Encounter Details Date Type Department Care Team Description 03/17/2020 Orders Only Solid Organ Transplant Alejo Garnett Aftercare following organ transplant; at [facility] MD Thang Status post kidney transplant; Count includes the [facility] H/O kidney transplant; [place] [address] TRANSPLANT SURGERY [phone] [place], [place] [address] Social History Tobacco Use Types [...] Panda PA [facility] [place] [address] (Wo rk) 06/02/2022 Infusion Hematology and Oncology 06/16/2022 Infusion Hematology and Oncology 06/21/2022 Office Visit Neurology Tyler Rojas MD [facility] er Neurology [place], [place] [phone] (Wo rk) 06/30/2022 Infusion Hematology and Oncology 07/14/2022 Infusion Hematology and Oncology 07/28/2022 Infusion Hematology and Oncology 08/11/2022 Infusion Hematology and Oncology 11/04/2022 Office Visit Rheumatology Dante Freedman PA [facility] RHEUMATOLOGY [place], [place] [address] (Wo rk) documented as of this encounter Visit Diagnoses Diagnosis Aftercare following organ transplant Status post kidney transplant Kidney replaced by transplant H/O kidney transplant Kidney replaced by transplant Vitamin D deficiency Unspecified vitamin D deficiency documented in this encounter Care Teams Quilt Sewer Relationship Specialty Start Date End Date Violetta Sanford MD PCP - General 04/02/[address] [facility] [address] [place] [address] documented as of this encounter
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
--- OUTSIDE RECORDS SUMMARY | 2022-05-24 10:51 | XMS_ITS | Encounter Summary ---
:1955 Author Organization [facility] [place] [address] Care Team Providers Name Role Phone Violetta Sanford MD Primary Care Provider Encounter Details Date Type Department Care Team Description 07/17/2019 External Results Neurology at [facility] Shivam Rojas [facility] [place] [address] Neurology [phone] [place], [place] [phone] (Wo rk) Social History [...] Ricardo Panda PA [facility] [address] [place] [address] (Wo rk) 06/02/2022 Infusion Hematology and Oncology 06/16/2022 Infusion Hematology and Oncology 06/21/2022 Office Visit Neurology Tyler Rojas MD [facility] er Neurology [place], [place] [phone] (Wo rk) 06/30/2022 Infusion Hematology and Oncology 07/14/2022 Infusion Hematology and Oncology 07/28/2022 Infusion Hematology and Oncology 08/11/2022 Infusion Hematology and Oncology 11/04/2022 Office Visit Rheumatology Dante Freedman PA [facility] ER RHEUMATOLOGY [place], [place] [address] (Wo rk) documented as of this encounter Procedures Procedure Name Priority Date/Time Associated Diagnosis Comme nts HEMOGRAM Routine 07/16/2019 Results for thi s procedure are i n the results section . COMPREHENSIVE METABOLIC Routine 07/16/2019 Resu lts for this PANEL (NON-FASTING) procedur e are in the results section . documented in this encounter Results (ABNORMAL) Comprehensive metabolic panel (non-fasting) (07/16/2019) Analysis Performed At Patho logist Time Signature Glucose Lvl 250 (H) BUN 40 (H) Creatinine 2.37 (H) Estimated GFR 27.62 Sodium 137 Potassium 5.3 (H) Chloride 106 CO2 23 Calcium 8.9 Total Protein 7.6 Albumin 2.9 (L) Total Bilirubin 0.5 Alk Phos 145 (H) AST 14 (L) ALT 24 Uric Acid 7.6 (H) Phosphorus 3.7 Anion Gap 8 Magnesium 1.4 (L) mg/dL Chol, Total 102 Specimen (Source) Anatomical Location Collection Method / Collectio n Time Received Time / Laterality Volume Blood specimen 07/16/2019 (specimen) Historical Provider CHEMISTRY ORDERABLES (ABNORMAL) Hemogram (07/16/2019) P athologist Signature WBC 7.61 RBC 3.59 (L) Hemoglobin 10.8 (L) Hematocrit 34.8 (L) MCV 96.9 (H) MCH 30.1 MCHC 31.0 (L) RDWCV 13.8 Platelets 209 MPV 8.8 Specimen (Source) Anatomical Location Collection Method / Collectio n Time Received Time / Laterality Volume Blood specimen 07/16/2019 (specimen) Historical Provider HEMATOLOGY ORDERABLES documented in this encounter Visit Diagnoses Not on filedocumented in this encounter Care Teams Content Writer Relationship Specialty Start Date End Date Violetta Sanford MD PCP - General 04/02/14 [address] [place] [address] documented as of this encounter
--- OUTSIDE RECORDS SUMMARY | 2022-05-24 10:51 | XMS_ITS | Encounter Summary ---
:1955 Author Organization [facility] [place] [address] Care Team Providers Name Role Phone Violetta Sanford MD Primary Care Provider Reason for Visit Reason Comments Medication Refill Encounter Details Date Type Department Care Team Description 08/25/2020 [facility] [place] [address] TRANSPLANT SURGERY [phone] [place], [place] [address] (Wo rk) Social History Tobacco [...] Panda PA [facility] [address] [place], [place] [address] (Wo rk) 06/02/2022 Infusion Hematology and Oncology 06/16/2022 Infusion Hematology and Oncology 06/21/2022 Office Visit Neurology Tyler Rojas MD [facility] er Neurology [place], [place] [phone] (Wo rk) 06/30/2022 Infusion Hematology and Oncology 07/14/2022 Infusion Hematology and Oncology 07/28/2022 Infusion Hematology and Oncology 08/11/2022 Infusion Hematology and Oncology 11/04/2022 Office Visit Rheumatology Dante Freedman PA [facility] RHEUMATOLOGY [place], [place] [address] (Wo rk) documented as of this encounter Visit Diagnoses Diagnosis Transplanted kidney Kidney replaced by transplant documented in this encounter Care Teams Director Of Finance Relationship Specialty Start Date End Date Violetta Sanford MD PCP - General 04/02/14 [address] [place] [address] documented as of this encounter
--- OUTSIDE RECORDS SUMMARY | 2022-05-24 10:51 | XMS_ITS | Encounter Summary ---
:1955 Author Organization [facility] [place] [address] Care Team Providers Name Role Phone Violetta Sanford MD Primary Care Provider Encounter Details Date Type Department Care Team Description 07/30/2019 Telephone Solid Organ Transplant at Aisha Aceves [facility] [place] [address] Social History Tobacco Use Types Packs/Day Years [...] Telephone Encounter - Aisha Aceves LPN - 07/30/2019 4:36 PM EST Recvd call from Jeremie at [facility] Lab to report a critical lab value. Potassium 6.2. Also Per Jeremie awaiting uric acid and phosphorous results. Provided Jeremie with fax number, and per Jeremie she will fax over labs. Notified Dr. Garnett of critical lab value. Further action pending his response. documented in this encounter Plan of Treatment Upcoming Encounters Date Type Specialty Care Team Description 05/26/2022 Office Visit Otolaryngology Ricardo Panda PA [facility] [place], [place] [address] (Wo rk) 06/02/2022 Infusion Hematology and Oncology 06/16/2022 Infusion Hematology and Oncology 06/21/2022 Office Visit Neurology Tyler Rojas MD [facility] Neurology [place], [place] [address] (Wo rk) 06/30/2022 Infusion Hematology and Oncology 07/14/2022 Infusion Hematology and Oncology 07/28/2022 Infusion Hematology and Oncology 08/11/2022 Infusion Hematology and Oncology 11/04/2022 Office Visit Rheumatology Dante Freedman PA [facility] RHEUMATOLOGY [place], [place] [address] (Wo rk) documented as of this encounter Visit Diagnoses Not on filedocumented in this encounter Care Teams Retort Operator Relationship Specialty Start Date End Date Violetta Sanford MD PCP - General 04/02/14 [address] [place] [address] documented as of this encounter
--- OUTSIDE RECORDS SUMMARY | 2022-05-24 10:51 | XMS_ITS | Encounter Summary ---
:1955 Author Organization [facility] [place] [address] Care Team Providers Name Role Phone Violetta Sanford MD Primary Care Provider Encounter Details Date Type Department Care Team Description 03/26/2020 Telephone Solid Organ Transplant [place] Aisha Aceves [facility] [place] [address] Social History Tobacco Use Types Packs/Day [...] Encounter - Aisha Aceves LPN - 03/26/2020 10:35 AM EDT Called Leroy and left message to call back kidney transplant. Want to confirm that we received labresults and want to schedule for a telehealth appt with Dr. Garnett. documented in this encounter Plan of Treatment Upcoming Encounters Date Type Specialty Care Team Description 05/26/2022 Office Visit Otolaryngology Ricardo Panda PA [facility] [place], [place] [address] (Wo rk) 06/02/2022 Infusion Hematology and Oncology 06/16/2022 Infusion Hematology and Oncology 06/21/2022 Office Visit Neurology Tyler Rojas MD [facility] Neurology [place], [place] [phone] (Wo rk) 06/30/2022 Infusion Hematology and Oncology 07/14/2022 Infusion Hematology and Oncology 07/28/2022 Infusion Hematology and Oncology 08/11/2022 Infusion Hematology and Oncology 11/04/2022 Office Visit Rheumatology Dante Freedman PA [facility] RHEUMATOLOGY [place], [place] [address] (Wo rk) documented as of this encounter Visit Diagnoses Not on filedocumented in this encounter Care Teams Department Clerk Relationship Specialty Start Date End Date Violetta Sanford MD PCP - General 04/02/14 [address] [place] [address] documented as of this encounter
--- OUTSIDE RECORDS SUMMARY | 2022-05-24 10:51 | XMS_ITS | Encounter Summary ---
:1955 Author Organization [facility] [place] [address] Care Team Providers Name Role Phone Violetta Sanford MD Primary Care Provider Encounter Details Date Type Department Care Team Description 08/21/2020 Notes Only [place] [facility] [place] [address] Social History Tobacco Use Types Packs/Day [...] encounter Progress Notes Awa Calderon - 08/21/2020 5:15 PM EST Transplant Audio Engineer Note: Reached patient by phone, advised that Pharmacy will not continue to fill Prograf after this month due to Medicare reimbursement. He would like to use [place], [place]. Communication to nursing team to advise of new pharmacy. documented in this encounter Plan of Treatment Upcoming Encounters Date Type Specialty Care Team Description 05/26/2022 Office Visit Otolaryngology Ricardo Panda PA [facility] [place], [place] [address] (Wo rk) 06/02/2022 Infusion Hematology and Oncology 06/16/2022 Infusion Hematology and Oncology 06/21/2022 Office Visit Neurology Tyler Rojas MD [facility] Neurology [place], [place] [phone] (Wo rk) 06/30/2022 Infusion Hematology and Oncology 07/14/2022 Infusion Hematology and Oncology 07/28/2022 Infusion Hematology and Oncology 08/11/2022 Infusion Hematology and Oncology 11/04/2022 Office Visit Rheumatology Dante Freedman PA [facility] [place]ATOLOGY [place] [address] (Wo rk) documented as of this encounter Visit Diagnoses Not on filedocumented in this encounter Care Teams World Travel Counselor Relationship Specialty Start Date End Date Violetta Sanford MD PCP - General 04/02/14 [facility] [address] [place] [address] documented as of this encounter
--- OUTSIDE RECORDS SUMMARY | 2022-05-24 10:51 | XMS_ITS | Encounter Summary ---
:1955 Author Organization [facility] [place] [address] Care Team Providers Name Role Phone Violetta Sanford MD Primary Care Provider Encounter Details Date Type Department Care Team Description 07/13/2019 Telephone Neurology at [facility] Shivam Rojas MD [facility] [place] [address] Neurology [phone] [place], [place] [address] (Wo rk) Social History [...] Telephone Encounter - Aliza Joseph RN - 07/13/2019 4:32 PM EST Sent most recent lab results received from [facility] to for review and input as is away. This was his prompt response: Reuben likely has recurrent diabetic nephropathy, known creatinine over 2.0 mg/dL, excessive proteinuria > 2.0 gm/day and a hgbA1C of 9.0+%. His graft will deteriorate slowly. We opted to start losartan to control his proteinuria. His K will run higher and creatinine up a bit because of the drug. Iasked that he check his labs monthly but I don't think there is much more we can do other than control his BPs to less than 130/80 and keep his npjN4Tc in the 6-7% range. documented in this encounter Plan of Treatment Upcoming Encounters Date Type Specialty Care Team Description 05/26/2022 Office Visit Otolaryngology Ricardo Panda PA [facility] [place], [place] [address] (Wo rk) 06/02/2022 Infusion Hematology and Oncology 06/16/2022 Infusion Hematology and Oncology 06/21/2022 Office Visit Neurology Tyler Rojas MD [facility] Neurology [place], [place] [address] (Wo rk) 06/30/2022 Infusion Hematology and Oncology 07/14/2022 Infusion Hematology and Oncology 07/28/2022 Infusion Hematology and Oncology 08/11/2022 Infusion Hematology and Oncology 11/04/2022 Office Visit Rheumatology Dante Freedman PA [facility] RHEUMATOLOGY [place], [place] [address] (Wo rk) documented as of this encounter Visit Diagnoses Not on filedocumented in this encounter Care Teams Manager Human Resources Relationship Specialty Start Date End Date Violetta Sanford MD PCP - General 04/02/14 [facility] [address] [place] [address] documented as of this encounter
--- OUTSIDE RECORDS SUMMARY | 2022-05-24 10:51 | XMS_ITS | Encounter Summary ---
:1955 Author Organization [facility] [place] [address] Care Team Providers Name Role Phone Violetta Sanford MD Primary Care Provider Reason for Visit Reason Comments Medication Refill Encounter Details Date Type Department Care Team Description 02/26/2020 [facility] [place] [address] TRANSPLANT SURGERY [phone] [place], [place] [address] (Wo rk) Social History Tobacco [...] Panda PA [facility] [address] [place], [place] [address] (Wo rk) 06/02/2022 Infusion Hematology and Oncology 06/16/2022 Infusion Hematology and Oncology 06/21/2022 Office Visit Neurology Tyler Rojas MD [facility] Medical [facility] er Neurology [place], [place] [address] (Wo rk) 06/30/2022 Infusion Hematology and Oncology 07/14/2022 Infusion Hematology and Oncology 07/28/2022 Infusion Hematology and Oncology 08/11/2022 Infusion Hematology and Oncology 11/04/2022 Office Visit Rheumatology Dante Freedman PA [facility] RHEUMATOLOGY [place], [place] [address] (Wo rk) documented as of this encounter Visit Diagnoses Diagnosis 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
--- OUTSIDE RECORDS SUMMARY | 2022-05-24 10:51 | XMS_ITS | Encounter Summary ---
:1955 Author Organization [place] [address] Care Team Providers Name Role Phone Violetta Sanford MD Primary Care Provider Encounter Details Date Type Department Care Team Description 08/19/2020 Telephone Endocrinology at [facility] Niyah Pappas, [place] [address] Social History Tobacco Use Types Packs/Day [...] Notes Telephone Encounter - Leny Morales - 08/22/2020 11:02 AM EST Called pharmacy and no PA is needed for insulins Telephone Encounter - Niyah Leos RN - 08/19/2020 3:31 PM EST Pt PCP called saying that his insurance changed will not cover insulins or CGM. [facility] living now isnot covered by his ins. His new insurance is silver script. Any idea as to who could help him out? documented in this encounter Plan of Treatment Upcoming Encounters Date Type Specialty Care Team Description 05/26/2022 Office Visit Otolaryngology Ricardo Panda PA [facility] [address] [place], [place] [address] (Wo rk) 06/02/2022 Infusion Hematology and Oncology 06/16/2022 Infusion Hematology and Oncology 06/21/2022 Office Visit Neurology Tyler Rojas MD [facility] Neurology [place], [place] [address] (Wo rk) 06/30/2022 Infusion Hematology and Oncology 07/14/2022 Infusion Hematology and Oncology 07/28/2022 Infusion Hematology and Oncology 08/11/2022 Infusion Hematology and Oncology 11/04/2022 Office Visit Rheumatology Dante Freedman PA [facility] RHEUMATOLOGY [place], [place] [address] (Wo rk) documented as of this encounter Visit Diagnoses Not on filedocumented in this encounter Care Teams Laydown Machine Operator Relationship Specialty Start Date End Date Violetta Sanford MD PCP - General 04/02/14 [address] [place] [address] documented as of this encounter
--- OUTSIDE RECORDS SUMMARY | 2022-05-24 10:51 | XMS_ITS | Encounter Summary ---
:1955 Author Organization [facility] [place] [address] Care Team Providers Name Role Phone Violetta Sanford MD Primary Care Provider Reason for Visit Reason Onset Date Comments Medication Refill 04/08/2020 Encounter Details Date Type Department Care Team Description 04/08/2020 Refill Solid Organ Transpla nt at [facility] [place] [address] Social History Tobacco Use Types Packs/Day [...] Panda PA [facility] [address] [place] [address] (Wo rk) 06/02/2022 Infusion Hematology and Oncology 06/16/2022 Infusion Hematology and Oncology 06/21/2022 Office Visit Neurology Tyler Rojas MD [facility] Dr Sofi [place] [phone] (Wo rk) 06/30/2022 Infusion Hematology and Oncology 07/14/2022 Infusion Hematology and Oncology 07/28/2022 Infusion Hematology and Oncology 08/11/2022 Infusion Hematology and Oncology 11/04/2022 Office Visit Rheumatology Dante Freedman PA [facility] RHEUMATOLOGY [place], [place] [address] (Wo rk) documented as of this encounter Visit Diagnoses Not on filedocumented in this encounter Care Teams Detail Supervisor Relationship Specialty Start Date End Date Violetta Sanford MD PCP - General 04/02/14 [facility] AL[address] [place] [address] documented as of this encounter
--- OUTSIDE RECORDS SUMMARY | 2022-05-24 10:51 | XMS_ITS | Encounter Summary ---
:1955 Author Organization [facility] [place] [address] Care Team Providers Name Role Phone Violetta Sanford MD Primary Care Provider Reason for Visit Reason Comments Medication Refill Encounter Details Date Type Department Care Team Description 05/26/2020 [facility] [place] [address] TRANSPLANT SURGERY [phone] [place], [place] [address] (Wo rk) Social History Tobacco [...] Panda PA [facility] Dr [place], [place] [address] (Wo rk) 06/02/2022 Infusion Hematology and Oncology 06/16/2022 Infusion Hematology and Oncology 06/21/2022 Office Visit Neurology Tyler Rojas MD [facility] Medical [facility] er Neurology [place], [place] [address] (Wo rk) 06/30/2022 Infusion Hematology and Oncology 07/14/2022 Infusion Hematology and Oncology 07/28/2022 Infusion Hematology and Oncology 08/11/2022 Infusion Hematology and Oncology 11/04/2022 Office Visit Rheumatology Dante Freedman PA 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
--- OUTSIDE RECORDS SUMMARY | 2022-05-24 10:51 | XMS_ITS | Encounter Summary ---
:1955 Author Organization [facility] [place] [address] Care Team Providers Name Role Phone Violetta Sanford MD Primary Care Provider Encounter Details Date Type Department Care Team Description 08/29/2019 Laboratory Appointment Lab [address]L [place] [address] Social History Tobacco Use Types Packs/Day [...] Otolaryngology Ricardo Panda PA [facility] er Dr [place] [address] (Wo rk) 06/02/2022 Infusion Hematology and Oncology 06/16/2022 Infusion Hematology and Oncology 06/21/2022 Office Visit Neurology Tyler Rojas MD [facility] er Dr Sofi [place] [address] (Wo rk) 06/30/2022 Infusion Hematology and Oncology 07/14/2022 Infusion Hematology and Oncology 07/28/2022 Infusion Hematology and Oncology 08/11/2022 Infusion Hematology and Oncology 11/04/2022 Office Visit Rheumatology Dante Freedman PA [facility] [address] [place], [place] [address] (Wo rk) documented as of this encounter Procedures Procedure Name Priority Date/Time Associated Diagnosis Comme nts LAVENDER TUBE HOLD Routine 08/29/2019 10:04 AM Re sults for this EST procedure are i n the results section. HEMOGLOBIN A1C Routine 08/29/2019 10:04 AM Result s for this EST procedure are i n the results section. documented in this encounter Results (ABNORMAL) Hemoglobin A1c (08/29/2019 10:04 AM EST) Analysis Performed At Patho logist Time Signature Hemoglobin A1C 7.9 (H) 4.3 - 5.6 [facility] Comment: Reference Range: 4.3 - [...] Mellitus, Diabetes Care 2013; 36: Suppl. 1, S6774 Est Avg Gluc 179 mg/dL [facility] Comment: eAG equivalents for HbA1c percentages: HbA1c(%) ?eAG(mg/dL) 6.0 ?126 6.5 ?140 7.0 ?154 7.5 ?169 8.0 ?183 8.5 ?197 9.0 ?212 9.5 ?226 10.0 ? 240 Limitations: The eAG calculation has not been validated on women, individuals below 18 years old and above 70 years old, and individuals with hemoglobinopathies. Additional resources are available on [facility] website. Scooby MALDONADO, Nba J, Sydnee R, et al. ??Tr anslating the A1C assay into estimated average glucose values. ??Diabetes Care 2008:31(8):7931-6641. Specimen Anatomical Collection Method Collection Time Receive d Time (Source) Location / / Volume Laterality Blood specimen No Charge / 08/29/2019 10:04 0 (specimen) Unknown AM EST 11:19 AM EST Resulting Agency Comment Spec In Lab Donell Hernandez MD CHEMISTRY ORDERABLES Performing Organization Address City/[facility]/[place] [address] Lavender Tube HOLD (08/29/2019 10:04 AM EST) [facility] gist Method Time Signature Lavender Hold Sample in [facility] lab. [facility] Specimen Anatomical Collection Method Collection Time Receive d Time (Source) Location / / Volume Laterality Blood specimen No Charge / 08/29/2019 10:04 0 (specimen) Unknown AM EST 10:12 AM EST Donell Hernandez MD HEMATOLOGY ORDERABLES Performing Organization Address [facility] [place] [address] documented in this encounter Visit Diagnoses Not on filedocumented in this encounter Care Teams Colored Liquid Plastic Applier Relationship Specialty Start Date End Date Violetta Sanford MD PCP - General 04/02/14 [address] [place] [address] documented as of this encounter
--- OUTSIDE RECORDS SUMMARY | 2022-05-24 10:52 | XMS_ITS | Encounter Summary ---
:1955 Author Organization [facility] [address] Care Team Providers Name Role Phone Violetta Sanford MD Primary Care Provider Encounter Details Date Type Department Care Team Description 08/11/2018 Abstract Solid Organ Transpla [place] [facility] [place] [place] [address] Social History Tobacco Use Types Packs/Day [...] Ricardo Panda PA [facility] er Dr [place] [address] (Wo rk) 06/02/2022 Infusion Hematology and Oncology 06/16/2022 Infusion Hematology and Oncology 06/21/2022 Office Visit Neurology Tyler oRjas MD [facility] Dr [place]i [place], [place] [address] (Wo rk) 06/30/2022 Infusion Hematology and Oncology 07/14/2022 Infusion Hematology and Oncology 07/28/2022 Infusion Hematology and Oncology 08/11/2022 Infusion Hematology and Oncology 11/04/2022 Office Visit Rheumatology Dante Freedman PA [facility] RHEUMATOLOGY [place], [place] [address] (Wo rk) documented as of this encounter Visit Diagnoses Not on filedocumented in this encounter Care Teams President Celebrity Acquistion Relationship Specialty Start Date End Date Violetta Sanford MD PCP - General 04/02/14 [address] [facility] [address] [place] [address] documented as of this encounter
--- OUTSIDE RECORDS SUMMARY | 2022-05-24 10:52 | XMS_ITS | Encounter Summary ---
:1955 Author Organization [facility] [place] [address] Care Team Providers Name Role Phone Violetta Sanford MD Primary Care Provider Encounter Details Date Type Department Care Team Description 03/21/2019 Laboratory Appointment Lab 3L [facility] [place] [id number] Social History Tobacco Use Types Packs/Day Years [...] Panda PA [facility] [address] [place] [address] (Wo rk) 06/02/2022 Infusion Hematology and Oncology 06/16/2022 Infusion Hematology and Oncology 06/21/2022 Office Visit Neurology Tyler Rojas MD [facility] Dr Sofi [place] 0[address] 6-2022 (Wo rk) 06/30/2022 Infusion Hematology and Oncology 07/14/2022 Infusion Hematology and Oncology 07/28/2022 Infusion Hematology and Oncology 08/11/2022 Infusion Hematology and Oncology 11/04/2022 Office Visit Rheumatology Dante Freedman PA [facility] [place], [place] [address] (Wo rk) documented as of this encounter Procedures Procedure Name Priority Date/Time Associated Comments Diagnosis URINALYSIS MICROSCOPIC STAT 03/21/2019 9:21 AM Results for this EXAM EDT procedure are i n the results section. HC BK VIRUS QUANT STAT 03/21/2019 9:21 AM H/O kidney Resu lts for this PCR,URINE EDT transplant procedure are i n the results section. HC CALCIUM STAT 03/21/2019 9:21 AM H/O kidney Results f or this QUANTITATIVE, URINE EDT transplant procedur e are in TIME SPEC 24 HR the results section. HC PROTEIN, STAT 03/21/2019 9:21 AM H/O kidney Results f or this QUANTITATIVE, URINE EDT transplant procedur e are in the results section. HC PHOSPHORUS, URINE STAT 03/21/2019 9:21 AM H/O kidney R esults for this EDT transplant procedure are i n the results section. HC MAGNESIUM, URINE STAT 03/21/2019 9:21 AM H/O kidney Re sults for this EDT transplant procedure are i n the results section. HC CREATININE - NON STAT 03/21/2019 9:21 AM H/O kidney Re sults for this BLOOD EDT transplant procedure are i n the results section. URINALYSIS WITH REFLEX STAT 03/21/2019 9:21 AM H/O kidney Results for this CULTURE EDT transplant procedure are i n the results section. HC PARATHYROID STAT 03/21/2019 8:51 AM H/O kidney Results for this HORMONE(PTH INTACT EDT transplant procedure are in the results section. HEMOGRAM STAT 03/21/2019 8:51 AM H/O kidney Results f or this EDT transplant procedure are i n the results section. DIFFERENTIAL, STAT 03/21/2019 8:51 AM H/O kidney Results for this AUTOMATED EDT transplant procedure are i n the results section. GOLD TUBE HOLD STAT 03/21/2019 8:51 AM H/O kidney Results for this EDT transplant procedure are i n the results section. LAVENDER TUBE HOLD STAT 03/21/2019 8:51 AM H/O kidney Res ults for this EDT transplant procedure are i n the results section. HC VENIPUNCTURE STAT 03/21/2019 8:51 AM H/O kidney Result s for this EDT transplant procedure are i n the results section. HC PCH 1,25 DI-OH VIT. STAT 03/21/2019 8:51 AM H/O kidney Results for this EDT transplant procedure are i n the results section. HC VITAMIN D TOTAL-25 STAT 03/21/2019 8:51 AM H/O kidney Results for this HYDROXY EDT transplant procedure are i n the results section. HC RETIC,AUTO INCLUDES STAT 03/21/2019 8:51 AM H/O kidney Results for this RETHE & IRF EDT transplant procedure are i n the results section. HC CBC,PLT & AUTO DIFF STAT 03/21/2019 8:51 AM H/O kidney EDT transplant HC URIC ACID, SERUM STAT 03/21/2019 8:51 AM H/O kidney Re sults for this EDT transplant procedure are i n the results section. HC PHOSPHORUS, SERUM STAT 03/21/2019 8:51 AM H/O kidney R esults for this EDT transplant procedure are i n the results section. HC MAGNESIUM, SERUM STAT 03/21/2019 8:51 AM H/O kidney Re sults for this EDT transplant procedure are i n the results section. HC HEMOGLOBIN A1C STAT 03/21/2019 8:51 AM H/O kidney Resu lts for this EDT transplant procedure are i n the results section. LIPID PANEL (REFLEX STAT 03/21/2019 8:51 AM H/O kidney Re sults for this DIRECT LDL) EDT transplant procedure are i n the results section. COMPREHENSIVE STAT 03/21/2019 8:51 AM H/O kidney Results for this METABOLIC PANEL EDT transplant procedure ar e in (NON-FASTING) the results section. documented in this encounter Results Urinalysis Microscopic Exam (03/21/2019 9:21 AM EDT) P athologist Signature RBC UA 3 0 - 3 /HPF [facility] WBC UA 1 0 - 3 /HPF [facility] Specimen (Source) Anatomical Collection Method Collection Time Re ceived Time Location / / Volume Laterality Urine specimen 03/21/2019 9:21 03/21/2019 9:34 obtained by clean AM EDT AM EDT catch procedure (specimen) Resulting Agency Comment Spec In Lab Alejo Garnett MD URINE ORDERABLES Performing Organization Address City/[facility]/[place] [address] (ABNORMAL) Urinalysis with reflex Culture (03/21/2019 9:21 AM EDT) [employer] Method Time Signature Glucose UA Negative Negative [facility] mg/dL [facility] Protein UA 100 (A) Negative [facility] mg/dL [facility] Bilirubin UA Negative Negative [facility] mg/dL [facility] Comment: Clinical correlation required for positi ve Urine Bilirubin results as false positive may occur with some drugs and d rug related products. If a false positive is suspected a serum total bili reyna should be considered if clinically indicated. Urobilinogen UA Normal Normal mg/dL [facility] pH UA 6.0 5.0 - 8.0 [facility] Blood UA Negative Negative mg/dL [facility] Ketones UA Negative Negative mg/dL [facility] Nitrite UA Negative Negative [facility] Leukocytes UA Negative Negative [facility] LABORATORY Appearance UA Clear Clear [facility] Spec [place] UA 1.013 1.002 - 1.030 [facility] Color UA Yellow Yellow [facility] Culture Reflexed No [facility] Specimen (Source) Anatomical Collection Method Collection Time Re ceived Time Location / / Volume Laterality Urine specimen 03/21/2019 9:21 03/21/2019 9:34 obtained by clean AM EDT AM EDT catch procedure (specimen) Resulting Agency Comment Spec In Lab Alejo Garnett MD URINE ORDERABLES Performing Organization Address City/[facility]/ZIP Code Phon e Number [place] [phone] BKV Quant Urine (03/21/2019 9:21 AM EDT) Component Value Ref Test Analysis Performed At Patholo gist Range Method Time Signature BKV Urine Not Detected JERE Result [facility] BKV Urine BK Virus Urine Result Interpretation JERE Ramirez [facility] Result: BK Virus not detected HOSPITAL Specimen type: urine LABORATOR Y Assay Range: 2.80-7.80 log copies/mL (6.28x10^2 - 6.28x10^7 copies/mL) Methods: Quantitative real-time polymerase chain react ion (PCR) of viral DNA isolated from plasma was performed using [employer] BKV analyte-specific reagents and the [employer] System that automates both nucleic a alonzo [...] and Advanc ed Technology (CGAT) Laboratory at [facility]. It has not been cleared or approved by the FDA. The laboratory is regulated under CLIA as qualified to perform high-complexity testing. This elizabeth t is used for clinical purposes. It should not be regarded as investigational or fo r research. Comment: [VERIFIED DATE]03.23.19 Verified By:Alejo Alejandro (Electronic Signature) Specimen Anatomical Collection Method Collection Time Receive d Time (Source) Location / / Volume Laterality Urine specimen 03/21/2019 9:21 AM 019 (specimen) EDT 11:42 AM EDT Resulting Agency Comment Spec In Lab Alejo Garnett MD MICROBIOLOGY - GENERAL ORDER STEPHANIE Performing Organization Address City/State/ZIP Code Phon e Number [address] Calcium Creatinine Ratio, random urine (03/21/2019 9:21 AM EDT) P athologist Signature U Calcium 2.0 mg/dL [facility] U Creatinine 64 mg/dL [facility] Ca/Cre Ratio 0.03 ratio [facility] Specimen Anatomical Collection Method Collection Time Receive d Time (Source) Location / / Volume Laterality Urine specimen 03/21/2019 9:21 AM 019 9:34 (specimen) EDT AM EDT Resulting Agency Comment Spec In Lab Alejo Garnett MD URINE ORDERABLES Performing Organization Address City/[facility]/ZIP Code Phon e Number [address] Phosphorus, urine, random (03/21/2019 9:21 AM EDT) P athologist Signature U Phosphorus 45.1 mg/dL [facility] Specimen Anatomical Collection Method Collection Time Receive d Time (Source) Location / / Volume Laterality Urine specimen 03/21/2019 9:21 AM 019 9:34 (specimen) EDT AM EDT Resulting Agency Comment Spec In Lab Alejo Garnett MD URINE ORDERABLES Performing Organization Address City/[facility]/ZIP Code Phon e Number [address] (ABNORMAL) Protein/Creatinine Ratio, urine (03/21/2019 9:21 AM EDT) P athologist Signature U Creatinine 64 mg/dL [facility] U Protein Ran 73 (H) 0 - 12 [facility] mg/dL [facility] Prot/Cre Ratio 1.1 ratio [facility] Specimen Anatomical Collection Method Collection Time Receive d Time (Source) Location / / Volume Laterality Urine specimen 03/21/2019 9:21 AM 019 9:34 (specimen) EDT AM EDT Resulting Agency Comment Spec In Lab Alejo Garnett MD URINE ORDERABLES Performing Organization Address City/[facility]/ZIP Code Phon e Number [address] Magnesium, urine, random (03/21/2019 9:21 AM EDT) P athologist Signature U Mg Ran 2.21 mmol/L [facility] Specimen Anatomical Collection Method Collection Time Receive d Time (Source) Location / / Volume Laterality Urine specimen 03/21/2019 9:21 AM 019 9:34 (specimen) EDT AM EDT Resulting Agency Comment Spec In Lab Alejo Garnett MD URINE ORDERABLES Performing Organization Address City/State/ZIP Code Phon e Number [address] Creatinine, urine, random (03/21/2019 9:21 AM EDT) athologist Signature U Creatinine 64 mg/dL [facility] Specimen Anatomical Collection Method Collection Time Receive d Time (Source) Location / / Volume Laterality Urine specimen 03/21/2019 9:21 AM 019 9:34 (specimen) EDT AM EDT Resulting Agency Comment Spec In Lab Alejo Garnett MD URINE ORDERABLES Performing Organization Address City/[facility] Code Phon e Number [address] Differential, Automated (03/21/2019 8:51 AM EDT) athologist Signature Neutrophils % 58.3 % [facility] Neutr Abs (ANC) 4.01 1.70 - [facility] 6.10 [facility] x10(3)/[facility] LABORATORY Lymphocytes % 28.2 % [facility] Lymphocytes Abs 1.9 0.9 - 3.2 [facility] x10(3)/[facility] LABORATORY Monocytes % 7.9 % [facility] Monocyte Abs 0.5 0.3 - 0.9 [facility] x10(3)/[facility] LABORATORY Eosinophils % 4.7 % [facility] Eosinophils Abs 0.3 0.0 - 0.4 [facility] x10(3)/[facility] LABORATORY Basophils % 0.6 % [facility] Basophils Abs 0.0 0.0 - 0.1 [facility] x10(3)/[facility] LABORATORY Immature Gran % 0.30 % [facility] Comment: Immature granulocytes(IG's)percentage an d absolute count will include metamyelocytes, myelocytes, and promyelo cytes. Blood smears from CBCs yielding IG's will be scanned manually for volodymyr carter. If this scan disagrees with the automated IG or if promyelocytes are not ed, a manual differential will be performed. Courtney Gran Abs 0.02 0.00 - 0.04 x10(3)/[facility] Specimen Anatomical Collection Method Collection Time Receive d Time (Source) Location / / Volume Laterality Blood specimen 03/21/2019 8:51 AM 019 8:57 (specimen) EDT AM EDT Resulting Agency Comment Spec In Lab Alejo Garnett MD HEMATOLOGY ORDERABLES Performing Organization Address City/State/[place] [address] (ABNORMAL) Hemogram (03/21/2019 8:51 AM EDT) Analysis Performed At Patho logist Time Signature WBC 6.9 4.0 - 9.5 [facility] x10(3)/[facility] LABORATORY RBC 3.68 (L) 4.58 - [facility] 5.54 [facility] x10(6)/[facility] LABORATORY Hemoglobin 11.2 (L) 13.7 - [facility] 16.5 gm/dL [facility] Hematocrit 36.1 (L) 40.5 - [facility] 48.5 % [facility] MCV 98.1 (H) 82.9 - [facility] 93.1 [facility] LABORATORY MCH 30.4 27.5 - [facility] 32.1 pg [facility] MCHC 31.0 (L) 32.0 - [facility] 35.7 gm/dL [facility] Platelets 194 145 - 357 [facility] x10(3)/[facility] LABORATORY RDWSD 52.6 (H) 36.0 - [facility] 45.0 [facility]ORATORY RDWCV 14.6 (H) 11.4 - [facility] 13.8 % [facility] MPV 8.6 7.6 - 12.9 [facility] nRBC % Auto 0.0 % [facility] nRBC Abs Auto 0.000 0.000 - [facility] 0.000 [facility] x10(3)/[facility] LABORATORY Specimen Anatomical Collection Method Collection Time Receive d Time (Source) Location / / Volume Laterality Blood specimen 03/21/2019 8:51 AM 019 8:57 (specimen) EDT AM EDT Resulting Agency Comment Spec In Lab Alejo Garnett MD HEMATOLOGY ORDERABLES Performing Organization Address City/State/[place] [address] (ABNORMAL) Hemoglobin A1c (03/21/2019 8:51 AM EDT) Analysis Performed At Patho logist Time Signature Hemoglobin A1C 8.0 (H) 4.3 - 5.6 [facility] Comment: Reference Range: 4.3 [...] 36: Suppl. 1, S67-74 Est Avg Gluc 183 mg/dL [facility] Comment: eAG equivalents for HbA1c percentages: HbA1c(%) ?eAG(mg/dL) 6.0 ?126 6.5 ?140 7.0 ?154 7.5 ?169 8.0 ?183 8.5 ?197 9.0 ?212 9.5 ?226 10.0 ? 240 Limitations: The eAG calculation has not been validated on women, individuals below 18 years old and above 70 years old, and individuals with hemoglobinopathies. Additional resources are available on [facility] website. Scooby MALDONADO, Nba J, Sydnee R, et al. ??Tr anslating the A1C assay into estimated average glucose values. ??Diabetes Care 2008:31(8):9428-1862. Specimen Anatomical Collection Method Collection Time Receive d Time (Source) Location / / Volume Laterality Blood specimen 03/21/2019 8:51 AM 019 8:57 (specimen) EDT AM EDT Resulting Agency Comment Spec In Lab Alejo Garnett MD CHEMISTRY ORDERABLES Performing Organization Address City/[facility]/[place] [address] (ABNORMAL) Reticulocyte Count (03/21/2019 8:51 AM EDT) Patholo gist Method Time Signature Retic Ct % 2.6 0.7 - 2.6 [facility] % [facility] Retic Ct Abs 0.090 0.030 - [facility] 0.120 [facility] x10(6)/[facility] L LABORATORY Immature Retic% 23.7 (H) 0.0 - [facility] 15.6 % [facility] Reticulated Hgb 29.3 (L) 31.3 - [facility] 40.2 pg [facility] Specimen Anatomical Collection Method Collection Time Receive d Time (Source) Location / / Volume Laterality Blood specimen 03/21/2019 8:51 AM 019 8:57 (specimen) EDT AM EDT Resulting Agency Comment Spec In Lab Alejo Garnett MD HEMATOLOGY ORDERABLES Performing Organization Address City/[facility]/[place] [address] (ABNORMAL) Comprehensive metabolic panel (non-fasting) (03/21/2019 8:51 AM EDT) P athologist Signature Glucose Lvl 176 65 - 199 JERE MELI mg/dL [facility] Comment: Diabetes: >=200 mg/dL plus symp toms BUN 23 (H) 10 - 20 mg/dL [facility] Creatinine 1.88 (H) 0.80 - 1.50 mg/dL [facility] Sodium 139 135 - 145 mmol/L [facility] Potassium 4.7 3.5 - 5.0 mmol/L [facility] Comment: Please note: ??Patients with WBC >100,00 0 may have falsely elevated Potassium levels. ??For accurate Potassium quantif ication in these patients send serum separator tube (gold top) for subsequent determinations. ??Contact the Clinical Chemistry Laboratory if there are any qu estions. Chloride 105 98 - 107 mmol/L [facility] CO2 25 22 - 31 mmol/L [facility] Anion Gap 9 5 - 15 mmol/L [facility] Calcium 9.4 8.5 - 10.5 mg/dL [facility] Total Protein 7.8 6.1 - 8.0 gm/dL [facility] Albumin 3.4 3.2 - 5.2 gm/dL [facility] AST 35 0 - 39 unit/L [facility] ALT 48 0 - 55 unit/L [facility] Alk Phos 158 (H) 40 - 130 unit/L [facility] Total Bilirubin 0.5 0.2 - 1.3 mg/dL [facility] Estimated GFR 37 (L) >=60 mL/min/1.73 m?? [facility] Comment: The eGFR was calculated using the CKD-EP I equation. As with all creatinine based estimates of kidney function, eGFR values calculated with the CKD-EPI equation are not accurate in patients wi th acute kidney failure, extremes of body mass or the acutely ill. http://[employer] [facility].[place]olafeet/DHnkf eGFR 42 (L) >=60 mL/min/1.73 m?? [facility] Comment: The eGFR was calculated using the CKD-EP I equation. As with all creatinine based estimates of kidney function, eGFR values calculated with the CKD-EPI equation are not accurate in patients wi th acute kidney failure, extremes of body mass or the acutely ill. http://[employer]/DHMCnkf Specimen Anatomical Collection Method Collection Time Receive d Time (Source) Location / / Volume Laterality Blood specimen 03/21/2019 8:51 AM 019 8:57 (specimen) EDT AM EDT Resulting Agency Comment Spec In Lab Alejo Garnett MD CHEMISTRY ORDERABLES Performing Organization Address City/State/[place] [address] Lipid Panel (03/21/2019 8:51 AM EDT) athologist Signature Chol, Total 96 mg/dL [facility] Comment: Lower Risk: <200 mg/dL Average Risk: 200-239 mg/dL Higher Risk: >pb=058 mg/dL Triglycerides 184 mg/dL [facility] Comment: Average Risk/Lower Risk: <150 mg/dL Borderline High Risk: 150-199 mg/dL High Risk: 200-499 mg/dL Very High Risk: >xm=479 mg/dL HDL 24 mg/dL [facility] Comment: Males: ?? Higher Risk: <40 mg/dL Females: ?? HIgher Risk: <50 mg/dL LDL Cholesterol 35 mg/dL [facility] Comment: Lowest Risk: <100 mg/dL Lower Risk: 100-129 mg/dL Borderline High Risk: 130-159 mg/dL High Risk: 160-189 mg/dL Very High Risk: >nr=215 mg/dL Chol/HDL Ratio 4.0 ratio [facility] Lipid Interpretation See Note [facility] Comment: Lipid management should be guided by a p atient? s ASCVD risk, goals and preferences. ACC/AHA Guidelines recommend high intens ity statin if clinical ASCVD or LDL greater than or equal to 190 mg/dL. http://[employer].Solafeet/IYL-KJX-Pzrqucmci Adults aged 40-75 with LDL 70-189 mg/dL should have their 10 year ASCVD risk estimated with the ACC/AHA ASCVD risk es timator http://tools.acc.org/UYFDK-Lfmc-Bfemdvuw r/ Statin should be discussed if risk [...] Location / / Volume Laterality Blood specimen 03/21/2019 8:51 AM 019 8:57 (specimen) EDT AM EDT Resulting Agency Comment Spec In Lab Alejo Garnett MD CHEMISTRY ORDERABLES Performing Organization Address City/[facility]/[place] [address] Phosphorus (03/21/2019 8:51 AM EDT) P athologist Signature Phosphorus 3.4 2.5 - 4.5 [facility] MELI mg/dL [facility] Specimen Anatomical Collection Method Collection Time Receive d Time (Source) Location / / Volume Laterality Blood specimen 03/21/2019 8:51 AM 019 8:57 (specimen) EDT AM EDT Resulting Agency Comment Spec In Lab Alejo Garnett MD CHEMISTRY ORDERABLES Performing Organization Address City/[facility]/[place] [address] (ABNORMAL) Magnesium (03/21/2019 8:51 AM EDT) P athologist Signature Magnesium 0.62 (L) 0.69 - 1.07 [facility] mmol/L [facility] Specimen Anatomical Collection Method Collection Time Receive d Time (Source) Location / / Volume Laterality Blood specimen 03/21/2019 8:51 AM 019 8:57 (specimen) EDT AM EDT Resulting Agency Comment Spec In Lab Alejo Garnett MD CHEMISTRY ORDERABLES Performing Organization Address City/[facility]/[place] [address] Uric acid (03/21/2019 8:51 AM EDT) P athologist Signature Uric Acid 7.5 3.5 - 8.5 JERE MUROCOCK mg/dL [facility] Specimen Anatomical Collection Method Collection Time Receive d Time (Source) Location / / Volume Laterality Blood specimen 03/21/2019 8:51 AM 019 8:57 (specimen) EDT AM EDT Resulting Agency Comment Spec In Lab Alejo Garnett MD CHEMISTRY ORDERABLES Performing Organization Address City/State/ZIP Code Phon e Number [address] (ABNORMAL) PTH (03/21/2019 8:51 AM EDT) P athologist Signature PTH 92 (H) 15 - 65 JERE MUROCOCK pg/mL [facility] Specimen Anatomical Collection Method Collection Time Receive d Time (Source) Location / / Volume Laterality Blood specimen 03/21/2019 8:51 AM 019 8:57 (specimen) EDT AM EDT Resulting Agency Comment Spec In Lab Alejo Garnett MD CHEMISTRY ORDERABLES Performing Organization Address City/State/ZIP Code Phon e Number [address] Vitamin D, 25-Hydroxy (03/21/2019 8:51 AM EDT) P athologist Signature 25-OH Vit D 31 30 - 100 JERE GARRISON Total ng/mL [facility] Comment: Deficient <10 ng/mL Insufficient 10 to 29 ng/mL Sufficient 30 to 100 ng/mL Potential Intoxication >100 ng/mL According to the [place] National Osteoporosi s Foundation, Vitamin D concentrations >30 ng/mL are sufficient to protect bone health. ??The National Kidney Foundation has similarly stated that pat ients with Vitamin D concentrations <30ng/mL should be considered to be insu fficient or deficient. http://[employer] [facility].Solafeet/nkf-guidelines http://[employer] [facility].[employer]olafeet/nejm-VitD The [employer] Vitamin D Immunoassay detec ts both 25-OH Vitamin D2 and 25-OH Vitamin D3, but only a total Vitamin D c oncentration is reported. Specimen Anatomical Collection Method Collection Time Receive d Time (Source) Location / / Volume Laterality Blood specimen 03/21/2019 8:51 AM 019 (specimen) EDT 11:00 AM EDT Resulting Agency Comment Spec In Lab Alejo Garnett MD CHEMISTRY ORDERABLES Performing Organization Address City/[facility]/ZIP Code Phon e Number [address] [address] Gold Tube HOLD (03/21/2019 8:51 AM EDT) P athologist Signature Gold Hold Sample in [facility] Specimen Anatomical Collection Method Collection Time Receive d Time (Source) Location / / Volume Laterality Blood specimen 03/21/2019 8:51 AM 019 8:57 (specimen) EDT AM EDT Alejo Garnett MD CHEMISTRY ORDERABLES Performing Organization Address City/[facility]/ZIP Code Phon e Number [address] Lavender Tube HOLD (03/21/2019 8:51 AM EDT) Patholo gist Method Time Signature Lavender Hold Sample in [facility] LABORATORY Specimen Anatomical Collection Method Collection Time Receive d Time (Source) Location / / Volume Laterality Blood specimen 03/21/2019 8:51 AM 019 8:57 (specimen) EDT AM EDT Alejo Garnett MD HEMATOLOGY ORDERABLES Performing Organization Address City/[facility]/ZIP Code Phon e Number [address] 1,25-dihydroxycholecalciferol (03/21/2019 8:51 AM EDT) P athologist Signature Vit D 1,25 19 18 - 64 [facility] Comment: ADDITIONAL INFORMATIO N This test was developed and its performa nce characteristics determined by [facility] in a manner co nsistent with CLIA requirements. This test has not been carlos ared or approved by the U.S. Food and Drug Administration. Test Performed by: [facility] [address] [id number] [address] Worker: Van White M.D. Ph. D.; CLIA# [id number] Specimen Anatomical Collection Method Collection Time Receive d Time (Source) Location / / Volume Laterality Blood specimen 03/21/2019 8:51 AM 019 (specimen) EDT 11:15 AM EDT Resulting Agency Comment Spec In Lab Alejo Garnett MD CHEMISTRY ORDERABLES Performing Organization Address City/[facility]/ZIP Code Phon e Number [place] [phone] Tacrolimus level (03/21/2019 8:51 AM EDT) P athologist Signature Tacrolimus Lvl 4.6 ng/mL [facility] Comment: Trough therapeutic: ??5-15 ng/mL Performed by ultra-performance liquid ch romatography tandem mass spectrometry (UPLCMS/MS). This test was developed and its performa nce characteristics determined by [facility]. It has not been cleared or approved by the FDA. The laboratory is regulated under CLIA a s qualified to perform high-complexity testing. This test is used for clinical purposes. It should not be regarded as investigational or for research. 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
--- OUTSIDE RECORDS SUMMARY | 2022-05-24 10:52 | XMS_ITS | Encounter Summary ---
:1955 Author Organization [facility] [address] Care Team Providers Name Role Phone Violetta Sanford MD Primary Care Provider Encounter Details Date Type Department Care Team Description 04/20/2018 Office Visit Neurology at [facility] Shivam Rojas, Tremor, essential [facility] [place] [address] Neurology [phone] [place] [address] (Wo rk) Social History Tobacco Use Types [...] Sign Reading Time Taken Comments Blood Pressure 138/56 04/20/2018 10:00 AM EDT Pulse 77 04/20/2018 10:00 AM EDT Temperature - - Respiratory Rate - - Oxygen Saturation - - Inhaled Oxygen Concentration - - Weight 136.1 kg (300 lb) 04/20/2018 10:00 AM EDT Height 193 cm (6' 4) 04/20/2018 10:00 AM EDT reported Body Mass Index 36.52 04/20/2018 10:00 AM EDT documented in this encounter Progress Notes Shivam Rojas MD - 04/20/2018 10:30 AM EDT Leroy Torres Is a 62-year-old male with diabetes, neuropathic and phantom pains, and a history of kidney transplant. He follows with me for a tremor that is a benign tremor and likely essential tremor possibly worsened by his transplant agents. He has been on propranolol for many years with good control of tremor. He takes 160 mg of the long-acting version 3 times a day. He also takes gabapentin 900 mg twice a day. He continues to get severe phantom pains at times. There is no rhyme or reason to this and he cannot predict any triggers, it isnot clear that gabapentin helps. Overall he feels that things are going fine. We renewed the propranolol. He does not want Klonopin or primidone. He does not want to change the gabapentin dosing. He is not having any side effects fromeither propranolol or gabapentin. I think at this point since things are stable he could follow-up moving forward with his primary care doctor. Obviously if there is any change or worsening I would be happy to see him again. He took mycard and will call me with any questions or concerns but we will not schedule follow-up at this time. We spent 15 minutes in consultation, the majority of which was spent in supportive counseling and therapeutic planning. Shivam Rojas MD 04/20/2018 Chief Of Surgery General Neurology and Clinical Neurophysiology [facility] Department of Neurology documented in this encounter Plan of Treatment Upcoming Encounters Date Type Specialty Care Team Description 05/26/2022 Office Visit Otolaryngology Ricardo Panda PA [facility] [address] [place] [address] (Wo rk) 06/02/2022 Infusion Hematology and Oncology 06/16/2022 Infusion Hematology and Oncology 06/21/2022 Office Visit Neurology Tyler Rojas MD [facility] er Neurology [place], [place] [phone] (Wo rk) 06/30/2022 Infusion Hematology and Oncology 07/14/2022 Infusion Hematology and Oncology 07/28/2022 Infusion Hematology and Oncology 08/11/2022 Infusion Hematology and Oncology 11/04/2022 Office Visit Rheumatology Dante Freedman PA [facility] RHEUMATOLOGY [place], [place] [address] (Wo rk) documented as of this encounter Visit Diagnoses Diagnosis Tremor, essential Essential and other specified forms of t remor documented in this encounter Care Teams Shipping Specialist Relationship Specialty Start Date End Date Violetta Sanford MD PCP - General 04/02/14 [address] [place] [address] documented as of this encounter
--- OUTSIDE RECORDS SUMMARY | 2022-05-24 10:52 | XMS_ITS | Encounter Summary ---
:1955 Author Organization [facility] [place] [address] Care Team Providers Name Role Phone Violetta Sanford MD Primary Care Provider Encounter Details Date Type Department Care Team Description 04/06/2018 Refill Solid Organ Transplant Lynda Pyle, [place] [address] Social History Tobacco Use Types Packs/Day Years Used Date Former Smoker Cigarettes 2 20 Quit: 01/19/19 93 Smokeless Tobacco: Never Used Alcohol Use Standard Drinks/Week Comments Yes 0 (1 standard drink = 0.6 oz pure alcoho l) rare Alcohol Habits Answer Date Recorded How often do you have a drink containing alcohol? Not asked How many drinks containing alcohol do you have on a typical Not asked day when you are drinking? How often do you have six or more drinks on one occasion? No t asked Comment: rare 04/19/2012 Sex Assigned at Date Recorded Not on file documented as of this encounter Miscellaneous Notes Telephone Encounter - Nicky Pyle CMA - 04/06/2018 10:15 AM EDT Spoke with patient and confirmed that he would like to change his immunosuppression medications to [facility] mail order pharmacy and stay on brand name Prograf. Telephone Encounter - Nicky Pyle CMA - 04/06/2018 10:14 AM EDT ----- Message from Abiola Kelly sent at 04/06/2018 9:49 AM EDT ----- Regarding: Rx Contact: Leroy was told by Radha in [facility] that they only carry the generic brand of: Cellcept Prograf They suggested he get this through [facility] and have it mailed. He will be out of both on 04/16/2018. Was does he need to do to start this process? documented in this encounter Plan of Treatment Upcoming Encounters Date Type Specialty Care Team Description 05/26/2022 Office Visit Otolaryngology Ricardo Panda PA [facility] [place] [address] (Wo rk) 06/02/2022 Infusion Hematology and Oncology 06/16/2022 Infusion Hematology and Oncology 06/21/2022 Office Visit Neurology Tyler Rojas MD [facility] Neurology [place], [place] [phone] (Wo rk) 06/30/2022 Infusion Hematology and Oncology 07/14/2022 Infusion Hematology and Oncology 07/28/2022 Infusion Hematology and Oncology 08/11/2022 Infusion Hematology and Oncology 11/04/2022 Office Visit Rheumatology Dante Freedman PA [facility] RHEUMATOLOGY [place], [place] [address] (Wo rk) documented as of this encounter Visit Diagnoses Diagnosis Transplanted kidney Kidney replaced by transplant documented in this encounter Care Teams Project Manager Process Development Relationship Specialty Start Date End Date Violetta Sanford MD PCP - General 04/02/14 [address] [place] [address] documented as of this encounter
--- OUTSIDE RECORDS SUMMARY | 2022-05-24 10:52 | XMS_ITS | Encounter Summary ---
:1955 Author Organization [facility] [place] [address] Care Team Providers Name Role Phone Violetta Sanford MD Primary Care Provider Encounter Details Date Type Department Care Team Description 05/26/2018 Notes Only Solid Organ Transpla nt at [facility] [place] [address] Social History Tobacco Use Types Packs/Day [...] this encounter Progress Notes Awa Calderon - 05/26/2018 3:58 PM EDT Transplant Profile Saw Operator Note: Called patient to review pharmacy options for brand Prograf, call went to , left message requesting that he call back. Addendum: 05/29/2018, Mr. Torres called back. He stated that he is all set using [facility]. I explained that we are not sure how long the Pharmacy will continue to fill Brand Prograf, but if he has any issues filling it in the future to contact us. He expressed understanding and agrees with this plan. documented in this encounter Plan of Treatment Upcoming Encounters Date Type Specialty Care Team Description 05/26/2022 Office Visit Otolaryngology Ricardo Panda PA [facility] [place], [place] [address] (Wo rk) 06/02/2022 Infusion Hematology and Oncology 06/16/2022 Infusion Hematology and Oncology 06/21/2022 Office Visit Neurology Tyler Rojas MD [facility] Neurology [place], [place] [phone] (Wo rk) 06/30/2022 Infusion Hematology and Oncology 07/14/2022 Infusion Hematology and Oncology 07/28/2022 Infusion Hematology and Oncology 08/11/2022 Infusion Hematology and Oncology 11/04/2022 Office Visit Rheumatology Dante Freedman PA [facility] RHEUMATOLOGY [place], [place] [address] (Wo rk) documented as of this encounter Visit Diagnoses Not on filedocumented in this encounter Care Teams Aeronautical Test Engineer Relationship Specialty Start Date End Date Violetta Sanford MD PCP - General 04/02/14 [facility] [address] [place] [address] documented as of this encounter
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
--- OUTSIDE RECORDS SUMMARY | 2022-05-24 10:52 | XMS_ITS | Encounter Summary ---
:1955 Author Organization [facility] [place] [address] Care Team Providers Name Role Phone Violetta Sanford MD Primary Care Provider Encounter Details Date Type Department Care Team Description 05/15/2018 Orders Only Solid Organ Transplant Loraine Galvan R N [place] [address] Social History Tobacco Use Types Packs/Day [...] Visit Otolaryngology Ricardo Panda PA [facility] er Dr [place] [address] (Wo rk) 06/02/2022 Infusion Hematology and Oncology 06/16/2022 Infusion Hematology and Oncology 06/21/2022 Office Visit Neurology Tyler Rojas MD [facility] Dr [place], [place] [address] (Wo rk) 06/30/2022 Infusion Hematology and Oncology 07/14/2022 Infusion Hematology and Oncology 07/28/2022 Infusion Hematology and Oncology 08/11/2022 Infusion Hematology and Oncology 11/04/2022 Office Visit Rheumatology Dante Freedman PA [facility] RHEUMATOLOGY [place], [place] [address] (Wo rk) documented as of this encounter Visit Diagnoses Diagnosis Transplanted kidney Kidney replaced by transplant documented in this encounter Care Teams Construction Craft Laborer Relationship Specialty Start Date End Date Violetta Sanford MD PCP - General 04/02/14 [address] [place] [address] documented as of this encounter
--- OUTSIDE RECORDS SUMMARY | 2022-05-24 10:52 | XMS_ITS | Encounter Summary ---
:1955 Author Organization [facility] [place] [address] Care Team Providers Name Role Phone Violetta Sanford MD Primary Care Provider Encounter Details Date Type Department Care Team Description 05/16/2018 Telephone Solid Organ Transpla nt at [facility] [place] [address] Social History Tobacco Use Types Packs/Day Years [...] this encounter Miscellaneous Notes Telephone Encounter - Loraine Rojas RN - 05/16/2018 8:31 AM EDT Prograf DoseAdjustment Patient: Leroy Torres Date of Lab Test: 05/10/2018 Prograf Level: 8.9 Previous Prograf Dose: 07/25 New Prograf Dose: 1/0.5 Spoke with Leroy Torres to relay information about Prograf level and need to adjust dosing. Pt is aware of the result and repeated back adjustment in dosing. Pt is aware of the need for a repeat blood draw in one week's time and has proper orders to have this done. Pt understands plan of care. No additional questions or concerns. documented in this encounter Plan of Treatment Upcoming Encounters Date Type Specialty Care Team Description 05/26/2022 Office Visit Otolaryngology Ricardo Panda PA [facility] [place] [address] (Wo rk) 06/02/2022 Infusion Hematology and Oncology 06/16/2022 Infusion Hematology and Oncology 06/21/2022 Office Visit Neurology Tyler Rojas MD [facility] Neurology [place], [place] [phone] (Wo rk) 06/30/2022 Infusion Hematology and Oncology 07/14/2022 Infusion Hematology and Oncology 07/28/2022 Infusion Hematology and Oncology 08/11/2022 Infusion Hematology and Oncology 11/04/2022 Office Visit Rheumatology Dante Freedman PA [facility] RHEUMATOLOGY [place], [place] [address] (Wo rk) documented as of this encounter Visit Diagnoses Not on filedocumented in this encounter Care Teams Jitterbug Operator Relationship Specialty Start Date End Date Violetta Sanford MD PCP - General 04/02/14 [facility] [address] [facility] [address] [place] [address] documented as of this encounter
--- OUTSIDE RECORDS SUMMARY | 2022-05-24 10:52 | XMS_ITS | Encounter Summary ---
:1955 Author Organization [place] [address] Care Team Providers Name Role Phone Violetta Sanford MD Primary Care Provider Encounter Details Date Type Department Care Team Description 05/16/2018 Notes Only Solid Organ Transpla nt at [facility] [place] [address] Social History Tobacco Use Types Packs/Day [...] this encounter Progress Notes Awa Calderon - 05/16/2018 11:55 AM EDT Transplant Kerrick Kleaner Operator Note: Patient left message on medication refill line stating that he can't get Prograf at [facility] ([facility] bought out). Called patient back to discuss pharmacy options for Brand Prograf. Call went to , left message requesting that he call back. Referral to [place] for verification of insurance only at this time. documented in this encounter Plan of Treatment Upcoming Encounters Date Type Specialty Care Team Description 05/26/2022 Office Visit Otolaryngology Ricardo Panda PA [facility] [place], [place] [address] (Wo rk) 06/02/2022 Infusion Hematology and Oncology 06/16/2022 Infusion Hematology and Oncology 06/21/2022 Office Visit Neurology Tyler Rojas MD [facility] Neurology [place], [place] [phone] (Wo rk) 06/30/2022 Infusion Hematology and Oncology 07/14/2022 Infusion Hematology and Oncology 07/28/2022 Infusion Hematology and Oncology 08/11/2022 Infusion Hematology and Oncology 11/04/2022 Office Visit Rheumatology Dante Freedman PA [facility] RHEUMATOLOGY [place], [place] [address] (Wo rk) documented as of this encounter Visit Diagnoses Not on filedocumented in this encounter Care Teams Reports Analysis Manager Relationship Specialty Start Date End Date Violetta Sanford MD PCP - General 04/02/14 [address] [place] [address] documented as of this encounter
--- OUTSIDE RECORDS SUMMARY | 2022-05-24 10:52 | XMS_ITS | Encounter Summary ---
:1955 Author Organization [facility] [place] [address] Care Team Providers Name Role Phone Violetta Sanford MD Primary Care Provider Reason for Visit Reason Onset Date Comments Medication Refill 03/15/2019 Encounter Details Date Type Department Care Team Description 03/15/2019 Refill Solid Organ Transpla nt at [facility] [place] [address] Social History Tobacco Use Types Packs/Day [...] PA [facility] [address] [place] [address] (Wo rk) 06/02/2022 Infusion Hematology and Oncology 06/16/2022 Infusion Hematology and Oncology 06/21/2022 Office Visit Neurology Tyler Rojas MD [facility] Dr [address] [place] [phone] (Wo rk) 06/30/2022 Infusion Hematology and Oncology 07/14/2022 Infusion Hematology and Oncology 07/28/2022 Infusion Hematology and Oncology 08/11/2022 Infusion Hematology and Oncology 11/04/2022 Office Visit Rheumatology Dante Freedman PA [facility] RHEUMATOLOGY [place], [place] [address] (Wo rk) documented as of this encounter Visit Diagnoses Not on filedocumented in this encounter Care Teams Image Archivist Relationship Specialty Start Date End Date Violetta Sanford MD PCP - General 04/02/14 [address] [place] [address] documented as of this encounter
--- OUTSIDE RECORDS SUMMARY | 2022-05-24 10:52 | XMS_ITS | Encounter Summary ---
:1955 Author Organization [facility] [place] [address] Care Team Providers Name Role Phone Violetta Sanford MD Primary Care Provider Encounter Details Date Type Department Care Team Description 05/16/2018 Refill Solid Organ Transplant Lynda Pyle, [place] [address] Social History Tobacco Use Types Packs/Day [...] Telephone Encounter - Nicky Pyle CMA - 05/16/2018 3:20 PM EDT New pharmacy for brand name prograf. Telephone Encounter - Nicky Pyle CMA - 05/16/2018 3:15 PM EDT ----- Message from Abiola Kelly sent at 05/16/2018 11:10 AM EDT ----- Regarding: Rx Contact: Leroy called about [facility] in [facility] not carrying name brand Prograf, only generic. He wanted this switched to [facility] so that he can get it mailed to him just like the [employer]. Looks like the 1 mg Prograf was sent to [facility] today. He needs 2 new prescriptions sent to [facility]: Prograf 1 mg Prograf .05 mg Please call him if this can't be done through [facility]. documented in this encounter Plan of Treatment Upcoming Encounters Date Type Specialty Care Team Description 05/26/2022 Office Visit Otolaryngology Ricardo Panda PA [facility] [address] [place], [place] [address] (Wo rk) 06/02/2022 Infusion Hematology and Oncology 06/16/2022 Infusion Hematology and Oncology 06/21/2022 Office Visit Neurology Tyler Rojas MD [facility] Neurology [place], [place] [phone] (Wo rk) 06/30/2022 Infusion Hematology and Oncology 07/14/2022 Infusion Hematology and Oncology 07/28/2022 Infusion Hematology and Oncology 08/11/2022 Infusion Hematology and Oncology 11/04/2022 Office Visit Rheumatology Dante Freedman PA [facility] RHEUMATOLOGY [place], [place] [address] (Wo rk) documented as of this encounter Visit Diagnoses Diagnosis Transplanted kidney Kidney replaced by transplant documented in this encounter Care Teams Deputy Commonwealth'S Attorney Relationship Specialty Start Date End Date Violetta Sanford MD PCP - General 04/02/14 [address] [place] [address] documented as of this encounter
--- OUTSIDE RECORDS SUMMARY | 2022-05-24 10:52 | XMS_ITS | Encounter Summary ---
:1955 Author Organization [facility] [place] [address] Care Team Providers Name Role Phone Violetta Sanford MD Primary Care Provider Reason for Visit Reason Comments Medication Refill Encounter Details Date Type Department Care Team Description 06/29/2018 Refill Neurology at [facility] Shivam Rojas MD [facility] [place] [address] Neurology [phone] [place], [place] [phone] (Wo rk) Social History [...] 05/26/2022 Office Visit Otolaryngology Ricardo Panda PA [facility] [address] [place], [place] [address] (Wo rk) 06/02/2022 Infusion Hematology and Oncology 06/16/2022 Infusion Hematology and Oncology 06/21/2022 Office Visit Neurology Tyler Rojas MD [facility] er Neurology [place], [place] [address] (Wo rk) 06/30/2022 Infusion Hematology and Oncology 07/14/2022 Infusion Hematology and Oncology 07/28/2022 Infusion Hematology and Oncology 08/11/2022 Infusion Hematology and Oncology 11/04/2022 Office Visit Rheumatology Dante Freedman PA [facility] RHEUMATOLOGY [place], [place] [address] (Wo rk) documented as of this encounter Visit Diagnoses Not on filedocumented in this encounter Care Teams Sheet Metal Installer Relationship Specialty Start Date End Date Violetta Sanford MD PCP - General 04/02/14 [address] [place] [address] documented as of this encounter
--- OUTSIDE RECORDS SUMMARY | 2022-05-24 10:52 | XMS_ITS | Encounter Summary ---
:1955 Author Organization [facility] [place] [address] Care Team Providers Name Role Phone Violetta Sanford MD Primary Care Provider Reason for Visit Reason Comments Medication Refill Encounter Details Date Type Department Care Team Description 06/11/2019 [facility] [place] [address] TRANSPLANT SURGERY [phone] [place], [place] [address] (Wo rk) Social History Tobacco [...] Ricardo Panda PA [facility] [address] [place], [place] [address] (Wo rk) 06/02/2022 Infusion Hematology and Oncology 06/16/2022 Infusion Hematology and Oncology 06/21/2022 Office Visit Neurology Tyler Rojas MD [facility] Medical [facility] er Neurology [place], [place] [phone] (Wo rk) 06/30/2022 Infusion Hematology and Oncology 07/14/2022 Infusion Hematology and Oncology 07/28/2022 Infusion Hematology and Oncology 08/11/2022 Infusion Hematology and Oncology 11/04/2022 Office Visit Rheumatology Dante Freedman PA [facility] RHEUMATOLOGY [place], [place] [address] (Wo rk) documented as of this encounter Visit Diagnoses Diagnosis Transplanted kidney Kidney replaced by transplant documented in this encounter Care Teams Line Out Man Relationship Specialty Start Date End Date Violetta Sanford MD PCP - General 04/02/14 [address] [place] [address] documented as of this encounter
--- OUTSIDE RECORDS SUMMARY | 2022-05-24 10:52 | XMS_ITS | Encounter Summary ---
:1955 Author Organization [facility] [place] [address] Care Team Providers Name Role Phone Violetta Sanford MD Primary Care Provider Encounter Details Date Type Department Care Team Description 03/13/2019 [facility] [place] [address] Social History Tobacco Use Types Packs/Day Years [...] 05/26/2022 Office Visit Otolaryngology Ricardo Panda PA [facility] er Dr [place] [address] (Wo rk) 06/02/2022 Infusion Hematology and Oncology 06/16/2022 Infusion Hematology and Oncology 06/21/2022 Office Visit Neurology Tyler Rojas MD [facility] er [place], [place] [address] (Wo rk) 06/30/2022 Infusion Hematology and Oncology 07/14/2022 Infusion Hematology and Oncology 07/28/2022 Infusion Hematology and Oncology 08/11/2022 Infusion Hematology and Oncology 11/04/2022 Office Visit Rheumatology Dante Freedman PA [facility] RHEUMATOLOGY [place], [place] [address] (Wo rk) documented as of this encounter Visit Diagnoses Not on filedocumented in this encounter Care Teams Route Supervisor Relationship Specialty Start Date End Date Violetta Sanford MD PCP - General 04/02/14 [address] [facility] [address] [place] [address] documented as of this encounter
--- OUTSIDE RECORDS SUMMARY | 2022-05-24 10:52 | XMS_ITS | Encounter Summary ---
:1955 Author Organization [facility] Address [address] [place] [address] Care Team Providers Name Role Phone Violetta Sanford MD Primary Care Provider Encounter Details Date Type Department Care Team Description 06/21/2018 Laboratory Appointment Lab 3L [facility] Type 2 diabetes [facility] mellitus with [facility] complicat ion, with Drive long-term current use [place], [place] of insulin [phone] Social History Tobacco Use Types Packs/Day Years [...] 05/26/2022 Office Visit Otolaryngology Ricardo Panda PA [facility] er [address] [place] [address] (Wo rk) 06/02/2022 Infusion Hematology and Oncology 06/16/2022 Infusion Hematology and Oncology 06/21/2022 Office Visit Neurology Tyler Rojas MD [facility] er [address] [place] [address] (Wo rk) 06/30/2022 Infusion Hematology and Oncology 07/14/2022 Infusion Hematology and Oncology 07/28/2022 Infusion Hematology and Oncology 08/11/2022 Infusion Hematology and Oncology 11/04/2022 Office Visit Rheumatology Dante Freedman PA [facility] RHEUMATOLOGY [place], [place] [address] (Wo rk) documented as of this encounter Procedures Procedure Name Priority Date/Time Associated Diagnosis Comme nts CREATININE STAT 06/21/2018 9:27 AM Type 2 diabetes Result s for this EST mellitus with procedure are in the complication, with results s ection. long-term current use of insulin HEMOGLOBIN A1C STAT 06/21/2018 9:27 AM Type 2 diabetes Resu lts for this EST mellitus with procedure are in the complication, with results s ection. long-term current use of insulin documented in this encounter Results (ABNORMAL) Hemoglobin A1c (06/21/2018 9:27 AM EST) Analysis Performed At [email or web address] Time Signature Hemoglobin A1C 8.2 (H) 4.3 - 5.6 [facility] [...] Mellitus, Diabetes Care 2013; 36: Suppl. 1, S67-27 Est Avg Gluc 189 mg/dL [facility] Comment: eAG equivalents for HbA1c percentages: HbA1c(%) ?eAG(mg/dL) 6.0 ?126 6.5 ?140 7.0 ?154 7.5 ?169 8.0 ?183 8.5 ?197 9.0 ?212 9.5 ?226 10.0 ? 240 Limitations: The eAG calculation has not been validated on women, individuals below 18 years old and above 70 years old, and individuals with hemoglobinopathies. Additional resources are available on [facility] ADA website. Scooby MALDONADO, Nba J, Sydnee R, et al. ??Tr anslating the A1C assay into estimated average glucose values. ??Diabetes Care 2008:31(8):7258-2839. Specimen Anatomical Collection Method Collection Time Receive d Time (Source) Location / / Volume Laterality Blood specimen 06/21/2018 9:27 AM 018 9:37 (specimen) EST AM EST Resulting Agency Comment Spec In Lab Donell Hernandez MD CHEMISTRY ORDERABLES Performing Organization Address City/State/[place] [address] (ABNORMAL) Creatinine (06/21/2018 9:27 AM EST) Analysis Performed At [facility]o logist Time Signature Creatinine 1.82 (H) 0.80 - [facility] 1.50 mg/dL [facility] Estimated GFR 38 (L) >=60 [facility] mL/min/1.7 [facility] 3 m?? H[facility]PITAL [facility] Comment: The eGFR was calculated using the CKD-EP I equation. As with all creatinine based estimates of kidney function, eGFR values calculated with the CKD-EPI equation are not accurate in patients wi th acute kidney failure, extremes of body mass or the acutely ill. [email or web address] CITY[facility]f eGFR 44 (L) >=60 mL/min/1.73 m?? [facility] Comment: The eGFR was calculated using the CKD-EP I equation. As with all creatinine based estimates of kidney function, eGFR values calculated with the CKD-EPI equation are not accurate in patients wi th acute kidney failure, extremes of body mass or the acutely ill. [email or web address] Specimen Anatomical Collection Method Collection Time Receive d Time (Source) Location / / Volume Laterality Blood specimen 06/21/2018 9:27 AM 018 9:37 (specimen) EST AM EST Resulting Agency Comment Spec In Lab Donell Hernandez MD CHEMISTRY ORDERABLES Performing Organization Address City/State/[facility] [place] [address] documented in this encounter Visit Diagnoses Diagnosis Type 2 diabetes mellitus with complicati on, with long-term current use of insulin documented in this encounter Care Teams Intelligence Operations Relationship Specialty Start Date End Date Violetta Sanford MD PCP - General 04/02/14 [address] [place] [address] documented as of this encounter
--- OUTSIDE RECORDS SUMMARY | 2022-05-24 10:52 | XMS_ITS | Encounter Summary ---
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 symp toms BUN 26 (H) 10 - 20 mg/dL [facility] Creatinine 1.98 (H) 0.80 - 1.50 mg/dL [facility] Sodium 142 135 - 145 mmol/L [facility] Potassium 4.7 3.5 - 5.0 mmol/L [facility] Comment: Please note: ??Patients with WBC >100,00 0 may have falsely elevated Potassium levels. ??For accurate Potassium quantif ication in these patients send serum separator tube (gold top) for subsequent determinations. ??Contact the Clinical Chemistry Laboratory if there are any qu estions. Chloride 109 (H) 98 - 107 mmol/L [facility] CO2 20 (L) 22 - 31 mmol/L [facility] Anion Gap 13 5 - 15 mmol/L [facility] Calcium 9.3 8.5 - 10.5 mg/dL [facility] Total Protein 7.8 6.1 - 8.0 gm/dL [facility] Albumin 3.4 3.2 - 5.2 gm/dL [facility] AST 18 0 - 39 unit/L [facility] ALT 15 0 - 55 unit/L [facility] Alk Phos 147 (H) 40 - 130 unit/L [facility] Total Bilirubin 0.4 0.2 - 1.3 mg/dL [facility] Estimated GFR 34 (L) >=60 mL/min/1.73 m?? [facility] Comment: The eGFR was calculated using the CKD-EP I equation. As with all creatinine based estimates of kidney function, eGFR values calculated with the CKD-EPI equation are not accurate in patients wi th acute kidney failure, extremes of body mass or the acutely ill. [email or web address]/[email or web address] HENRYETTAnkf eGFR 40 (L) >=60 mL/min/1.73 m?? [facility] Comment: The eGFR was calculated using the CKD-EP I equation. As with all creatinine based estimates of kidney function, eGFR values calculated with the CKD-EPI equation are not accurate in patients wi th acute kidney failure, extremes of body mass or the acutely ill. http://Gooddler/DHnkf Specimen Anatomical Collection Method Collection Time Receive d Time (Source) Location / / Volume Laterality Blood specimen 06/26/2019 8:02 AM 019 8:11 (specimen) EST AM EST Resulting Agency Comment Spec In Lab Alejo Garnett MD CHEMISTRY ORDERABLES Performing Organization Address City/State/[place] [address] (ABNORMAL) Reticulocyte Count (06/26/2019 8:02 AM EST) Patholo gist Method Time Signature Retic Ct % 2.6 0.7 - 2.6 [facility] Retic Ct Abs 0.100 0.030 - [facility] MELI 0.120 [facility] x10(6)/[facility] L LABORATORY Immature Retic% 20.4 (H) 0.0 - [facility] 15.6 % [facility] Reticulated Hgb 30.5 (L) 31.3 - [facility] 40.[address] [facility] Specimen Anatomical Collection Method Collection Time Receive d Time (Source) Location / / Volume Laterality Blood specimen 06/26/2019 8:02 AM 019 8:11 (specimen) EST AM EST Resulting Agency Comment Spec In Lab Alejo Garnett MD HEMATOLOGY ORDERABLES Performing Organization Address City/State/[place] [address] (ABNORMAL) Hemoglobin A1c (06/26/2019 8:02 AM EST) Analysis Performed At Patho logist Time Signature Hemoglobin A1C 9.0 (H) 4.3 - 5.6 [facility] [...] 36: Suppl. 1, S67-74 Est Avg Gluc 212 mg/dL [facility] Comment: eAG equivalents for HbA1c [...] into estimated average glucose values. ??Diabetes Care 2008:31(8):7618-2354. Specimen Anatomical Collection Method Collection Time Receive d Time (Source) Location / / Volume Laterality Blood specimen 06/26/2019 8:02 AM 019 8:11 (specimen) EST AM EST Resulting Agency Comment Spec In Lab Alejo Garnett MD CHEMISTRY ORDERABLES Performing Organization Address City/State/[place] [address] documented in this encounter Visit Diagnoses Diagnosis Transplanted kidney Kidney replaced by transplant Aftercare following organ transplant Prophylactic immunotherapy Need for prophylactic immunotherapy Chronic atrial fibrillation Atrial fibrillation CKD (chronic kidney disease) stage 4, GF R 15-29 ml/min Chronic kidney disease, Stage IV (severe ) Type 2 diabetes mellitus with diabetic n ephropathy, with long-term current use of insulin documented in this encounter Care Teams Warp Placer Relationship Specialty Start Date End Date Violetta Sanford MD PCP - General 04/02/14 [address] [place] [address] documented as of this encounter
--- OUTSIDE RECORDS SUMMARY | 2022-05-24 10:52 | XMS_ITS | Encounter Summary ---
:1955 Author Organization [facility] [place] [address] Care Team Providers Name Role Phone Violetta Sanford MD Primary Care Provider Reason for Visit Reason Onset Date Comments Medication Refill 04/11/2018 Encounter Details Date Type Department Care Team Description 04/11/2018 Refill Solid Organ Transplant at [facility] lucinda Desir, Transplanted kidney [facility] [place] [address] [place] [address] TRANSPLANT SURGERY [phone] [place] [address] (Wo rk) Social History Tobacco Use Types [...] Telephone Encounter - Nicky Pyle CMA - 04/11/2018 1:45 PM EDT Pharmacy adamantly requesting 90 day supply and brand name only on both Prograf and Cellcept. Telephone Encounter - Myla Jimenez RPH - 04/11/2018 12:33 PM EDT Spoke to patient and he says he has been using Brand name Prograf and Brand name Cellcept. Also called [facility] and pharmacist confirms patient has been receiving brand name Cellcept from them but new corporate policy does not allow them to fill those medications for him any longer. Telephone Encounter - Myla Jimenez RPH - 04/11/2018 10:57 AM EDT Pt says he would like to have brand name of Prograf and Cellcept. Cellcept rx sent to pharmacy for generic. Please call us to confirm if this is correct. Please also confirm, these claims should be billed to Medicare Part D and [place] Medicaid not to Medicare Part B. documented in this encounter Plan of Treatment Upcoming Encounters Date Type Specialty Care Team Description 05/26/2022 Office Visit Otolaryngology Ricardo Panda PA [facility] [address] [place] [address] (Wo rk) 06/02/2022 Infusion Hematology and Oncology 06/16/2022 Infusion Hematology and Oncology 06/21/2022 Office Visit Neurology Tyler Rojas MD [facility] Neurology [place], [place] [phone] (Wo rk) 06/30/2022 Infusion Hematology and Oncology 07/14/2022 Infusion Hematology and Oncology 07/28/2022 Infusion Hematology and Oncology 08/11/2022 Infusion Hematology and Oncology 11/04/2022 Office Visit Rheumatology Dante Freedman PA [facility] RHEUMATOLOGY [place], [place] [address] (Wo rk) documented as of this encounter Visit Diagnoses Diagnosis Transplanted kidney Kidney replaced by transplant documented in this encounter Care Teams Mail Processing Machine Operator Relationship Specialty Start Date End Date Violetta Sanford MD PCP - General 04/02/14 [address] [place] [address] documented as of this encounter
--- OUTSIDE RECORDS SUMMARY | 2022-05-24 10:52 | XMS_ITS | Encounter Summary ---
:1955 Author Organization [facility] [place] [address] Care Team Providers Name Role Phone Violetta Sanford MD Primary Care Provider Encounter Details Date Type Department Care Team Description 06/27/2019 Telephone Neurology at [facility] Shivam Rojas MD [facility] [place] [address] Neurology [phone] [place], [place] [phone] (Wo rk) Social History [...] Telephone Encounter - Aliza Joseph RN - 06/27/2019 2:07 PM EST Called again and left a VM requesting a call back. Telephone Encounter - Aliza Joseph RN - 06/27/2019 8:54 AM EST Called and left a detailed message regarding the start of primidone and the importance of getting his levels checked. I requested a call back as soon as possible. Telephone Encounter - Aliza Joseph RN - 06/27/2019 8:54 AM EST ----- Message from Shivam Rojas MD sent at 06/26/2019 2:11 PM EST ----- Ramos Abrams, THis patient will need to have his Prograf (Tacrolimus) levels checked every 2-3 weeks while we are working on his primidone uptitration. Can you help get these done locally and make sure they get us the results and know to call you to figure out how to adjust the Prograf? IT can be a big problem if that does not happen - he could reject his kidney transplant. Thanks. Rolando documented in this encounter Plan of Treatment Upcoming Encounters Date Type Specialty Care Team Description 05/26/2022 Office Visit Otolaryngology Ricardo Panda PA [facility] [place] [address] (Wo rk) 06/02/2022 Infusion Hematology and Oncology 06/16/2022 Infusion Hematology and Oncology 06/21/2022 Office Visit Neurology Tyler Rojas MD [facility] Neurology [place], [place] [phone] (Wo rk) 06/30/2022 Infusion Hematology and Oncology 07/14/2022 Infusion Hematology and Oncology 07/28/2022 Infusion Hematology and Oncology 08/11/2022 Infusion Hematology and Oncology 11/04/2022 Office Visit Rheumatology Dante Freedman PA [facility] RHEUMATOLOGY [place], [place] [address] (Wo rk) documented as of this encounter Visit Diagnoses Not on filedocumented in this encounter Care Teams Neurology Technician Relationship Specialty Start Date End Date Violetta Sanford MD PCP - General 04/02/14 [address] [place] [address] documented as of this encounter
--- OUTSIDE RECORDS SUMMARY | 2022-05-24 10:52 | XMS_ITS | Encounter Summary ---
:1955 Author Organization [facility] [place] [address] Care Team Providers Name Role Phone Violetta Sanford MD Primary Care Provider Encounter Details Date Type Department Care Team Description 01/09/2019 Notes Only Pharmacy at [facility] [place] [address] Social History Tobacco Use Types Packs/Day [...] documented as of this encounter Progress Notes Lauren Watters RPH - 01/09/2019 5:14 PM EDT COULD NOT LEAVE VM FOR PATIENT IN REGARDS TO PROGRAF CHANGE. PT'S PHONE NUMBER ON FILE IS INVALID. documented in this encounter Plan of Treatment Upcoming Encounters Date Type Specialty Care Team Description 05/26/2022 Office Visit Otolaryngology Ricardo Panda PA [facility] [address] [place] [address] (Wo rk) 06/02/2022 Infusion Hematology and Oncology 06/16/2022 Infusion Hematology and Oncology 06/21/2022 Office Visit Neurology Tyler Rojas MD [facility] er Neurology [place], [place] [phone] (Wo rk) 06/30/2022 Infusion Hematology and Oncology 07/14/2022 Infusion Hematology and Oncology 07/28/2022 Infusion Hematology and Oncology 08/11/2022 Infusion Hematology and Oncology 11/04/2022 Office Visit Rheumatology Dante Freedman PA [facility] RHEUMATOLOGY [place], [place] [address] (Wo rk) documented as of this encounter Visit Diagnoses Not on filedocumented in this encounter Care Teams Color Dipper Relationship Specialty Start Date End Date Violetta Sanford MD PCP - General 04/02/14 [address] [place] [address] documented as of this encounter
--- OUTSIDE RECORDS SUMMARY | 2022-05-24 10:52 | XMS_ITS | Encounter Summary ---
:1955 Author Organization [facility] [place] [address] Care Team Providers Name Role Phone Violetta Sanford MD Primary Care Provider Encounter Details Date Type Department Care Team Description 06/13/2019 Orders Only Solid Organ Transplant Andrae Dooley , Transplanted kidney [place] [facility] [place] [address] Social History Tobacco Use Types Packs/Day Years [...] Ricardo Panda PA [facility] er [address] [place] [address] (Wo rk) 06/02/2022 Infusion Hematology and Oncology 06/16/2022 Infusion Hematology and Oncology 06/21/2022 Office Visit Neurology Tyler Rojas MD [facility] Dr [place] [address] (Wo rk) 06/30/2022 Infusion Hematology and Oncology 07/14/2022 Infusion Hematology and Oncology 07/28/2022 Infusion Hematology and Oncology 08/11/2022 Infusion Hematology and Oncology 11/04/2022 Office Visit Rheumatology Dante Freedman PA [facility] RHEUMATOLOGY [place], [place] [address] (Wo rk) documented as of this encounter Visit Diagnoses Diagnosis Transplanted kidney Kidney replaced by transplant documented in this encounter Care Teams Thimble Press Operator Relationship Specialty Start Date End Date Violetta Sanford MD PCP - General 04/02/14 [address] [place] [address] documented as of this encounter
--- OUTSIDE RECORDS SUMMARY | 2022-05-24 10:52 | XMS_ITS | Encounter Summary ---
:1955 Author Organization [facility] [place] [address] Care Team Providers Name Role Phone Violetta Sanford MD Primary Care Provider Encounter Details Date Type Department Care Team Description 06/26/2019 Office Visit Solid Organ Transpla nt at [facility] [place] [place] [address] Social History Tobacco Use Types Packs/Day [...] documented as of this encounter Progress Notes Geovanna Mason, STEPHANY - 06/26/2019 10:40 AM EST [facility] Post Transplant Nutrition Follow Up Date: 06/26/2019 Patient: Leroy Torres Transplant Date: 02/29/08 [place] organ [facility] diagnosis: Diabetes Mellitus - Type II Transplant: Mr. Leroy Torres is a White Not nor 64 y.o. male who is 11+ years Status Post Kidney transplantation on 02/29/08. Patient was seen by Nutrition services on 06/26/2019 at the request of Dr. Alejo Garnett for diet education on a 2gm sodium diet and limited high-quality protein intake to 75-80gms per day. Wt Readings from Last 3 Encounters: 06/26/19 (!) 137 kg (302 lb) 06/26/19 (!) 137 kg (302 lb) 03/21/19 136.1 kg (300 lb) Today's vital signs: There were no vitals taken for this visit. Estimated body mass index is 36.76 kg/m?? as calculated from the following: Height as of an earlier encounter on 06/26/19: 193 cm (6' 4). Weight as of an earlier encounter on 06/26/19: 137 kg (302 lb). Patient is down ~30# since 2016; question fluid or true body weight. His AIBW estimated at ~104kg (228.8#) Lab Results Component Value Date HGB 11.6 (L) 06/26/2019 HCT 37.7 (L) 06/26/2019 NA 142 06/26/2019 K 4.7 06/26/2019 BUN 26 (H) 06/26/2019 CREATININE 1.98 (H) 06/26/2019 GLUCOSE 87 06/26/2019 CALCIUM 9.3 06/26/2019 MAGNESIUM 0.68 (L) 06/26/2019 PHOS 3.5 06/26/2019 ALBUMIN 3.4 06/26/2019 Cholesterol (in eD-H the component name CHLPL=Cholesterol) Lab Results Component Value Date CHLPL 88 06/26/2019 Current Assessment: Discussed protein allowance (~0.9-1gm/kg ABW which equals ~100gms protein per day) and 2gm sodium diet with patient and . In discussing foods to limit or avoid, it is noted that patient takes in a high sodium diet. His masoud are hamlin, hot dogs, sauerkraut, cheese, salted nuts, canned soups, to name a few. Encouraged patient to follow ~75-80gms protein per day of the HBVP since with starches and vegetables he will tally ~100gms per day. Patient has printed information with means for contact should questions arise. Encouraged patient maria fernandain to work on the sodium intake primarily; expect that this will greatly reduce the amount of proteinuria he is experiencing. Plan: Diet teaching done for lower protein and sodium intake as above; printed guidelines provided with means for contact. documented in this encounter Plan of Treatment Upcoming Encounters Date Type Specialty Care Team Description 05/26/2022 Office Visit Otolaryngology Ricardo Pnada PA [facility] [address] [place], [place] [address] (Wo rk) 06/02/2022 Infusion Hematology and Oncology 06/16/2022 Infusion Hematology and Oncology 06/21/2022 Office Visit Neurology Tyler Rojas MD [facility] Neurology [place], [place] [phone] (Wo rk) 06/30/2022 Infusion Hematology and Oncology 07/14/2022 Infusion Hematology and Oncology 07/28/2022 Infusion Hematology and Oncology 08/11/2022 Infusion Hematology and Oncology 11/04/2022 Office Visit Rheumatology Dante Freedman PA [facility] RHEUMATOLOGY [place] [address] (Wo rk) documented as of this encounter Visit Diagnoses Diagnosis Dietary counseling Dietary surveillance and counseling documented in this encounter Care Teams Insurance Advisor Relationship Specialty Start Date End Date Violetta Sanford MD PCP - General 04/02/14 [facility] [address] [place] [address] documented as of this encounter
--- OUTSIDE RECORDS SUMMARY | 2022-05-24 10:52 | XMS_ITS | Encounter Summary ---
:1955 Author Organization [facility] Address [address] [place] [address] Care Team Providers Name Role Phone Violetta Sanford MD Primary Care Provider Encounter Details Date Type Department Care Team Description 06/21/2018 Office Visit Endocrinology at [facility] Donell Hernandez, CKD (chronic kidney disease) stage 3, GFR 30-59 ml/min; [facility] S/P bilateral BKA (below knee amputation ); [facility] Type 2 diabetes mellitus wit h complication, with long-term current use of insulin; [place] [address] Adult BMI 37.0-37.9 kg/sq m; [phone] ENDOCRINOLOGY History of yaniv al transplant DEPT. [place], [place] [address] Social History Tobacco Use Types [...] Sign Reading Time Taken Comments Blood Pressure 139/61 06/21/2018 10:51 AM EST Pulse 79 06/21/2018 10:51 AM EST Temperature - - Respiratory Rate - - Oxygen Saturation - - Inhaled Oxygen Concentration - - Weight 145.2 kg (320 lb) 06/21/2018 10:51 AM EST pt sta milli Height 193 cm (6' 4) 06/21/2018 10:51 AM EST Body Mass Index 38.95 06/21/2018 10:51 AM EST documented in this encounter Progress Notes Donell Hernandez MD - 06/21/2018 11:00 AM EST Year of diagnosis: Regimen [...] bilateral bka R and morbid obesity. From November 2017 1) DM2 this is stable improved diabetes control since starting liraglutide. Continue to lose weight.We did not make any changes provided the hemoglobin A1c was below 8.5%. 2) bilateral bka he has new artificial limbs which is having trouble getting fitted for because of problems with the autocad detailer device. He hopes to be more active on the new legs. 3) renal transplant stable for 10 years 4) retinopathy no recent interventions needed 5) BMI > 37/weight loss - he is slowly losing weight 6) prevention vaccinations are up-to-date On victoza 1.8, no nausea Stopped CPAP- sees no problem Has a back brace- may help walking Will see pain clinic, had been doing PT Renal transplant now for 10 years Son has DM Regimen Basal levemir 50/80 bid Bolus humalog 25-30 units per meal Uses a sliding scale hbgm 1-2 x a day 180-200 most days for fbs Hypo none Diet B donut Sn Bagel L Grilled cheese soup Sn D friendlies - sandwich Sn Exercise Tries to be active complications Eyes prior laser therapy Feet Bilateral BKA Kidneys + renal transplant - saw transplant team in Jul autonomic: no gastroparesis bladder hypo unaware tachycardia cardiac no chest pain on exertion no shortness of breath at rest No history of stent cabg chf prevention: last eye exam: Within 2 mo last microalbumin :2011 last Cr: today last lipid panel:2011 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 PROGRAF 1 mg Capsule Take 1 capsule by mouth daily. Take 1 mg every morning. KIDNEY TRANSPLANT 02/29/2008. ICD code Z94.0. 90 capsule 3 ??? PROGRAF 0.5 mg Capsule Take 1 capsule by mouth daily. Take 0.5 mg every evening. Kidney transplant 02/29/2008. ICD code Z94.0 90 capsule 3 ??? propranolol (INDERAL LA) 160 mg Capsule,Sustained Action 24 hr Take 1 capsule by mouth 3 times daily. 270 capsule 1 ??? CELLCEPT 250 mg Capsule Take 2 capsules by mouth 2 times daily. Brand name Cellcept. Kidney Transplant Z94.0. Transplant Date; 02-29-08 360 capsule 3 ??? LEVEMIR FLEXTOUCH U-100 INSULN Insulin Pen Inject 50-80 Units subcutaneously 2 times daily. ICD 10 Code: E11.40 45 mL 11 ??? cholecalciferol, Vitamin D3, 2,000 unit Tablet Take 1 tablet by mouth daily. 90 tablet 3 ??? gabapentin (NEURONTIN) 300 mg Capsule Take 3 capsules by mouth 3 times daily. 810 capsule 1 ??? liraglutide (VICTOZA 3-FAZAL) 0.6 mg/0.1 mL (18 mg/3 mL) Pen Injector Inject 1.2 mg subcutaneouslydaily. 6 mL 11 ??? insulin needles, disposable, 29 gauge x 1/2 Needle 1 Device by [facility] [place], [place].(Non- Drug; Combo Route) route 3 times daily. 100 each 3 ??? atorvastatin (LIPITOR) 20 mg Tablet Take 1 tablet by mouth daily. 90 tablet 3 ??? folic acid (FOLVITE) 1 mg Tablet Take 2 tablets by mouth daily. 180 tablet 3 ??? losartan (COZAAR) 25 mg Tablet Take 0.5 tablets by mouth daily. (Patient taking differently: Take 25 mg by mouth nightly. Indications: hypertension) 45 tablet 3 ??? omeprazole (PRILOSEC) 40 mg [...] lungs daily. 1 ??? Miscellaneous Medical Supply [facility] [place] [place] 4 Devices by [facility] [place] [place].(Non-Drug; Combo Route) route daily. Rubber sheath for [...] by mouth daily. No current facility-administered medications for this visit. appearance: wt Change Down 18 for the year, contrinues ot lose weight BP 139/61 Pulse 79 Ht 193 cm (6' 4) Wt (!) 145.2 kg (320 lb) Comment: pt stated BMI 38.95 kg/m?? eyes: no retinopathy seen by green light ext: no pitting edema feet: bilateral bka neuro: gait is normal appreciation of 10 g of pressure is present Recent Results (from the past 24 hour(s)) Creatinine Result Value Ref Range Creatinine 1.82 (H) 0.80 - 1.50 mg/dL eGFR 38 (L) >=60 mL/min/1.73 m?? eGFR 44 (L) >=60 mL/min/1.73 m?? Hemoglobin A1c Result Value Ref Range Hemoglobin A1C 8.2 (H) 4.3 - 5.6 % Est Avg Gluc 189 mg/dL Ref. Range 03/09/2017 16:31 06/14/2017 09:44 12/13/2017 09:48 Hemoglobin A1C Latest Ref Range: 4.3 - 5.6 % 9.3 (H) 8.2 (H) 8.3 (H) 1) DM2 - his diabetes control is [...] renal function is stable for the year documented in this encounter Plan of Treatment Upcoming Encounters Date Type Specialty Care Team Description 05/26/2022 Office Visit Otolaryngology Ricardo Panda PA [facility] [address] [place], [place] [address] (Wo rk) 06/02/2022 Infusion Hematology and Oncology 06/16/2022 Infusion Hematology and Oncology 06/21/2022 Office Visit Neurology Tyler Rojas MD [facility] Neurology [place], [place] [phone] (Wo rk) 06/30/2022 Infusion Hematology and Oncology 07/14/2022 Infusion Hematology and Oncology 07/28/2022 Infusion Hematology and Oncology 08/11/2022 Infusion Hematology and Oncology 11/04/2022 Office Visit Rheumatology Dante Freedman PA [facility] RHEUMAT[facility] [place], [place] [address] ( rk) documented as of this encounter Visit Diagnoses Diagnosis CKD (chronic kidney disease) stage 3, GF R 30-59 ml/min Chronic kidney disease, Stage III (moder ate) S/P bilateral BKA (below knee amputation ) Lower limb amputation, below knee Type 2 diabetes mellitus with complicati on, with long-term current use of insulin Adult BMI 37.0-37.9 kg/sq m Body Mass Index 37.0-37.9, adult History of renal transplant Kidney replaced by transplant documented in this encounter Care Teams Music Department Chair Relationship Specialty Start Date End Date Violetta Sanford MD PCP - General 04/02/14 [address] [place] [address] documented as of this encounter
--- OUTSIDE RECORDS SUMMARY | 2022-05-24 10:52 | XMS_ITS | Encounter Summary ---
:1955 Author Organization [place] [address] Care Team Providers Name Role Phone Violetta Sanford MD Primary Care Provider Encounter Details Date Type Department Care Team Description 06/26/2019 Hospital Encounter Ultrasound at [facility] [place], Transplanted kidney [facility] Kelvin Desir MD [facility] [id number] TRANSPLANT [phone] [place] [address] Social History Tobacco Use Types Packs/Day Years [...] 81 mg by mouth 0 tablet daily. guaiFENesin 200 mg Take 200 mg by mouth 0 019 04/07/2020 Tablet daily. losartan (COZAAR) 50 Take one tablet every 30 tablet 09/201808/16/2019 mg Tablet evening with 25 mg tablet losartan (COZAAR) 50 Take one tablet by [...] Panda PA [facility] [address] [place], [place] [address] (Wo rk) 06/02/2022 Infusion Hematology and Oncology 06/16/2022 Infusion Hematology and Oncology 06/21/2022 Office Visit Neurology Tyler Rojas MD [facility] Neurology [place], [place] [phone] (Wo rk) 06/30/2022 Infusion Hematology and Oncology 07/14/2022 Infusion Hematology and Oncology 07/28/2022 Infusion Hematology and Oncology 08/11/2022 Infusion Hematology and Oncology 11/04/2022 Office Visit Rheumatology Dante Freedman PA [facility] [place] [address] (Wo rk) documented as of this encounter Procedures Procedure Name Priority Date/Time Associated Diagnosis Comme nts US RENAL TRANSPLANT STAT 06/26/2019 9:43 AM Transplanted ki corneliaey Results for this LEFT EST procedure are i n the results section. documented in this encounter Results US Renal Transplant Left (06/26/2019 9:43 AM EST) Anatomical Region Laterality Modality Abdomen Left Ultrasound Specimen (Source) Anatomical Collection Method Collection Time Re ceived Time Location / / Volume Laterality 06/26/2019 9:43 AM EST Impressions 06/26/2019 10:15 AM EST 1. ??Evaluation is limited by patient b ramon habitus. 2. ??Interval diffuse cortical thinning of the left lower quadrant renal transplant. Renal cortical echogenicity remains normal. No collecting system dilatation or peritransplant collection identified. 3. ??Intrarenal arcuate artery resistiv e indices overall are now borderline elevated ranging from 0.75-0.84, a nons pecific finding, which may be secondary to reported clinical concern of nephrop athy or rejection. 4. ??The visualized main renal artery a nd vein at the level of the renal hilum are patent. Unable to visualize the rem ainder of the main renal artery and vein. Thank you for letting us participate in the care of this patient. For questions regarding this report, please contact t he number below. 10 :08 AM ? Phyllis Gilmore, Staff Physician Electronically Signed Final Report ?? 10:15 am Narrative 06/26/2019 10:15 AM EST Transplant ? (Signed Final 06/26/2019 10:15 am) PATIENT INFO: ID #: ? [id number] ? : [birth year] (64 yrs) Name: ? LEROY DAILEY ?Visit Date:06/26/2019 09:43 am PERFORMED BY: Performed By: ? Sindy Nunes RDMS Attending: ?Deirdre HAWK, Phyllis Rosa Resident: ? Jamshid HAWK, Ruth Gonzalez Referred By: ?KELVIN Hayes Location: ? [place] SERVICE(S) PROVIDED: ??URTPL - Renal Transplant - Left - IMG [id number] ?[id number] INDICATIONS: ??rise in creatinine with concern of di abetic ??nephropathy in the transplanted kidne y TECHNIQUE/SCAN QUALITY: Scan Quality: ??Limited by patient body habitus COMPARISON: Renal transplant ultrasound with Dopple r interrogation, 08/13/15 RENAL ALLOGRAFT: Size (cm) ? L: 13.0 Cortical Thickness: ? D iffuse cortical thinning Corticomedullary Differention: ??Normal Echogenicity: ? Normal Perinephric Fluid/Collections: ??No col lection identified Hydronephrosis: ? None Comment: ?Limited visualization of the upper pole, ? partially obscured by bowel gas. RENAL TRANSPLANT DUPLEX: LEFT ? Main ? PSV ? EDV ?RIR ??Waveform ?Renal ? (cm/s) ??(cm/s) ?Artery At Hilum: ?77.2 ?10.7 ? 0.9 ??Patent LEFT ? Main ? PSV ? Waveform Renal Vein ? (cm/s) Proximal: ?58.2 ?Patent at level of hilum Comment: ?Unable to visualize main renal artery and vein ? past level of the hil um. PARENCHYMAL EVALUATION: LEFT ?Arcuate ? PSV ? EDV ? RI ??Waveform ?Artery ?(cm/s) ??(cm/s) Upper Pole: ?17.5 ? 4.5 ? 0.8 ??Patent Mid Pole: ?17.2 ? 2.7 ? 0.8 ??Patent Lower Pole: ?15.4 ? 3.6 ? 0.8 ??Patent Comment: ?RIs: ??Upper 0.75; mid 0. 84, lower 0.77. URINARY BLADDER: Pre-void (cm) ?L: 9.4 ? A P: ??7.6 ? TV: ??8.4 Vol (ml): ?314.2 Comment: ?Not distended. ??Bernardo Henderson theter present. Procedure Note Phyllis Gilmore MD - 06/26/2019Formatt ing of this note might be different from the original. Transplant (Signed Final 06/26/2019 10: 15 am) PATIENT INFO: ID #: [id number] : [birth year] (64 y rs) Name: LEROY DAILEY Visit Date:06/26 09:43 am PERFORMED BY: Performed By: Sindy Nunes RDMS Attending: Phyllis Gilmore MD Resident: Ruth Breen MD Referred By: KELVIN GARNETT Location: [place] SERVICE(S) PROVIDED: URTPL - Renal Transplant - Left - [id number] INDICATIONS: rise in creatinine with concern of diab etic nephropathy in the transplanted kidney TECHNIQUE/SCAN QUALITY: Scan Quality: Limited by patient body h abitus COMPARISON: Renal transplant ultrasound with Dopple r interrogation, 08/13/15 RENAL ALLOGRAFT: Size (cm) L: 13.0 Cortical Thickness: Diffuse cortical th inning Corticomedullary Differention: Normal Echogenicity: Normal Perinephric Fluid/Collections: No colle ction identified Hydronephrosis: None Comment: Limited visualization of the u pper pole, partially obscured by bowel gas. RENAL TRANSPLANT DUPLEX: LEFT Main PSV EDV RIR Waveform Renal (cm/s) (cm/s) Artery At Hilum: 77.2 10.7 0.9 Patent LEFT Main PSV Waveform Renal Vein (cm/s) Proximal: 58.2 Patent at level of hilum Comment: Unable to visualize main renal artery and vein past level of the hilum. PARENCHYMAL EVALUATION: LEFT Arcuate PSV EDV RI Waveform Artery (cm/s) (cm/s) Upper Pole: 17.5 4.5 0.8 Patent Mid Pole: 17.2 2.7 0.8 Patent Lower Pole: 15.4 3.6 0.8 Patent Comment: RIs: Upper 0.75; mid 0.84, low er 0.77. URINARY BLADDER: Pre-void (cm) L: 9.4 AP: 7.6 TV: 8.4 Vol (ml): 314.2 Comment: Not distended. Chang Catheter present. IMPRESSION 1. Evaluation is limited by patient bod y habitus. 2. Interval diffuse cortical thinning o f the left lower quadrant renal transplant. Renal cortical echogenicity remains normal. No collecting system dilatation or peritransplant collection identified. 3. Intrarenal arcuate artery resistive indices overall are now borderline elevated ranging from 0.75-0.84, a nons pecific finding, which may be secondary to reported clinical concern of nephrop athy or rejection. 4. The visualized main renal artery and vein at the level of the renal hilum are patent. Unable to visualize the rem ainder of the main renal artery and vein. Thank you for letting us participate in the care of this patient. For questions regarding this report, please contact t he number below. 10 :08 AM Phyllis Gilmore, Staff Physician Electronically Signed Final Report 06/26 10:15 am Kelvin Garnett MD [facility] GEN ORDERABLES documented in this encounter Visit Diagnoses Diagnosis Transplanted kidney Kidney replaced by transplant documented in this encounter Care Teams Stitching Machine Feeder Or Offbearer Relationship Specialty Start Date End Date Violetta Sanford MD PCP - General 04/02/14 [address] [facility] [address] [place] [address] documented as of this encounter
--- OUTSIDE RECORDS SUMMARY | 2022-05-24 10:52 | XMS_ITS | Encounter Summary ---
:1955 Author Organization [facility] [place] [address] Care Team Providers Name Role Phone Violetta Sanford MD Primary Care Provider Encounter Details Date Type Department Care Team Description 03/15/2019 External Results Solid Organ Transplant Devin Garnett, [facility] [place] [address] TRANSPLANT SURGERY [phone] [place], [place] [address] (Wo rk) Social History Tobacco [...] PA [facility] [address] [place] [address] (Wo rk) 06/02/2022 Infusion Hematology and Oncology 06/16/2022 Infusion Hematology and Oncology 06/21/2022 Office Visit Neurology Tyler Rojas MD [facility] Neurology [place], [place] [phone] (Wo rk) 06/30/2022 Infusion Hematology and Oncology 07/14/2022 Infusion Hematology and Oncology 07/28/2022 Infusion Hematology and Oncology 08/11/2022 Infusion Hematology and Oncology 11/04/2022 Office Visit Rheumatology Dante Freedman PA [facility] RHEUMATOLOGY [place], [place] [address] (Wo rk) documented as of this encounter Procedures Procedure Name Priority Date/Time Associated Diagnosis Comme nts LAB SCAN Routine 03/13/2019 Results for thi s procedure are in the resu lts section. LAB SCAN Routine 03/13/2019 documented in this encounter Results Scan Doc: Lab (03/13/2019) Narrative This result has an attachment that is no t available. Alejo Garnett MD MEDIA MGR SCAN EXT ORDR/RSLT Scan Doc: Lab (03/13/2019) Alejo Garnett MD MEDIA MGR SCAN EXT ORDR/RSLT documented in this encounter Visit Diagnoses Not on filedocumented in this encounter Care Teams Carton Forming Machine Operator Relationship Specialty Start Date End Date Violetta Sanford MD PCP - General 04/02/14 [address] [place] [address] documented as of this encounter
--- OUTSIDE RECORDS SUMMARY | 2022-05-24 10:52 | XMS_ITS | Encounter Summary ---
:1955 Author Organization [facility] [place] [address] Care Team Providers Name Role Phone Violetta Sanford MD Primary Care Provider Encounter Details Date Type Department Care Team Description 06/26/2019 Laboratory Lab 3L Sylvia Transplanted berta ryan; Appointment [facility] Aftercare following organ transplant; Hospital [place] [id number] Social History Tobacco Use Types Packs/Day Years [...] PA [facility] [address] [place] [address] (Wo rk) 06/02/2022 Infusion Hematology and Oncology 06/16/2022 Infusion Hematology and Oncology 06/21/2022 Office Visit Neurology Tyler Rojas MD [facility] Dr [place]i [place] [address] 6-2022 (Wo rk) 06/30/2022 Infusion Hematology and Oncology 07/14/2022 Infusion Hematology and Oncology 07/28/2022 Infusion Hematology and Oncology 08/11/2022 Infusion Hematology and Oncology 11/04/2022 Office Visit Rheumatology Dante Freedman PA [facility] RHEUMATOLOGY [place], [place] [address] (Wo rk) documented as of this encounter Procedures Procedure Name Priority Date/Time Associated Diagnosis Comme nts HC PARATHYROID STAT 06/26/2019 8:02 Transplanted kid quincy Results for this HORMONE(PTH INTACT AM EST Aftercare following pr ocedure are in organ transplant the results Prophylactic section. immunotherapy HEMOGRAM STAT 06/26/2019 8:02 Transplanted kid quincy Results for this AM EST Aftercare following procedur e are in organ transplant the results Prophylactic section. immunotherapy DIFFERENTIAL, STAT 06/26/2019 8:02 Transplanted kid quincy Results for this AUTOMATED AM EST Aftercare following procedur e are in organ transplant the results Prophylactic section. immunotherapy GOLD TUBE HOLD STAT 06/26/2019 8:02 Transplanted kid quincy Results for this AM EST Aftercare following procedur e are in organ transplant the results Prophylactic section. immunotherapy LAVENDER TUBE HOLD STAT 06/26/2019 8:02 Transplanted kidney Results for this AM EST Aftercare following procedur e are in organ transplant the results Prophylactic section. immunotherapy HC VENIPUNCTURE STAT 06/26/2019 8:02 Transplanted kid quincy Results for this AM EST Aftercare following procedur e are in organ transplant the results Prophylactic section. immunotherapy HC PCH 1,25 DI-OH STAT 06/26/2019 8:02 Transplanted k idney Results for this VIT. AM EST Aftercare following procedur e are in organ transplant the results Prophylactic section. immunotherapy HC VITAMIN D TOTAL-25 STAT 06/26/2019 8:02 Transplant ed kidney Results for this HYDROXY AM EST Aftercare following procedur e are in organ transplant the results Prophylactic section. immunotherapy HC RETIC,AUTO STAT 06/26/2019 8:02 Transplanted kid quincy Results for this INCLUDES RETHE & IRF AM EST Aftercare following procedure are in organ transplant the results Prophylactic section. immunotherapy HC CBC,PLT & AUTO STAT 06/26/2019 8:02 Transplanted k idney DIFF AM EST Aftercare following organ transplant Prophylactic immunotherapy HC URIC ACID, SERUM STAT 06/26/2019 8:02 Transplanted kidney Results for this AM EST Aftercare following procedur e are in organ transplant the results Prophylactic section. immunotherapy HC PHOSPHORUS, SERUM STAT 06/26/2019 8:02 Transplante d kidney Results for this AM EST Aftercare following procedur e are in organ transplant the results Prophylactic section. immunotherapy HC MAGNESIUM, SERUM STAT 06/26/2019 8:02 Transplanted kidney Results for this AM EST Aftercare following procedur e are in organ transplant the results Prophylactic section. immunotherapy HC HEMOGLOBIN A1C STAT 06/26/2019 8:02 Transplanted k idney Results for this AM EST Aftercare following procedur e are in organ transplant the results Prophylactic section. immunotherapy LIPID PANEL (REFLEX STAT 06/26/2019 8:02 Transplanted kidney Results for this DIRECT LDL) AM EST Aftercare following procedur e are in organ transplant the results Prophylactic section. immunotherapy COMPREHENSIVE STAT 06/26/2019 8:02 Transplanted kid quincy Results for this METABOLIC PANEL AM EST Aftercare following proce dure are in (NON-FASTING) organ transplant the results Prophylactic section. immunotherapy documented in this encounter Results Differential, Automated (06/26/2019 8:02 AM EST) P athologist Signature Neutrophils % 49.0 % [facility] Neutr Abs (ANC) 3.75 1.70 - [facility] 6.10 [facility] x10(3)/[facility] LABORATORY Lymphocytes % 35.4 % [facility] Lymphocytes Abs 2.7 0.9 - 3.2 [facility] x10(3)/[facility] LABORATORY Monocytes % 10.2 % [facility] Monocyte Abs 0.8 0.3 - 0.9 [facility] x10(3)/[facility] LABORATORY Eosinophils % 4.3 % [facility] Eosinophils Abs 0.3 0.0 - 0.4 [facility] x10(3)/[facility] LABORATORY Basophils % 0.8 % [facility] Basophils Abs 0.1 0.0 - 0.1 [facility] x10(3)/[facility] LABORATORY Immature Gran % 0.30 % [facility] Comment: Immature granulocytes(IG's)percentage an d absolute count will include metamyelocytes, myelocytes, and promyelo cytes. Blood smears from CBCs yielding IG's will be scanned manually for concmer danosvaldo. If this scan disagrees with the automated IG or if promyelocytes are not ed, a manual differential will be performed. Courtney Gran Abs 0.02 0.00 - 0.04 x10(3)/[facility]ATORY Specimen Anatomical Collection Method Collection Time Receive d Time (Source) Location / / Volume Laterality Blood specimen 06/26/2019 8:02 AM 019 8:11 (specimen) EST AM EST Resulting Agency Comment Spec In Lab Alejo Garnett MD HEMATOLOGY ORDERABLES Performing Organization Address City/State/ZIP Code Phon e Number [place] [phone] (ABNORMAL) Hemogram (06/26/2019 8:02 AM EST) Analysis Performed At Patho logist Time Signature WBC 7.6 4.0 - 9.5 [place] x10(3)/[facility] LABORATORY RBC 3.85 (L) 4.58 - [place] 5.54 [facility] x10(6)/[facility] LABORATORY Hemoglobin 11.6 (L) 13.7 - [facility] 16.5 gm/dL [facility] Hematocrit 37.7 (L) 40.5 - [facility] 48.5 % [facility] MCV 97.9 (H) 82.9 - [facility] 93.1 [facility] LABORATORY MCH 30.1 27.5 - [facility] 32.1 pg [facility] MCHC 30.8 (L) 32.0 - [facility] 35.7 gm/dL [facility] Platelets 226 145 - 357 [facility] x10(3)/[facility] LABORATORY RDWSD 50.1 (H) 36.0 - [facility] 45.0 [facility] LABORATORY RDWCV 14.1 (H) 11.4 - [facility] M[facility] 13.8 % [facility] LAB[facility] MPV 8.5 7.6 - 12.9 [facility] LABORATORY nRBC % Auto 0.0 % [facility] nRBC Abs Auto 0.000 0.000 - [facility] 0.000 [facility] x10(3)/[facility] LABORATORY Specimen Anatomical Collection Method Collection Time Receive d Time (Source) Location / / Volume Laterality Blood specimen 06/26/2019 8:02 AM 019 8:11 (specimen) EST AM EST Resulting Agency Comment Spec In Lab Alejo Garnett MD HEMATOLOGY ORDERABLES Performing Organization Address City/State/[place] [address] (ABNORMAL) Hemoglobin A1c (06/26/2019 8:02 AM EST) Analysis Performed At Patho logist Time Signature Hemoglobin A1C 9.0 (H) 4.3 - 5.6 [facility] Comment: Reference Range: 4.3 [...] 1, S67-74 Est Avg Gluc 212 mg/dL [facility] Comment: eAG equivalents for HbA1c percentages: HbA1c(%) ?eAG(mg/dL) 6.0 ?126 6.5 ?140 7.0 ?154 7.5 ?169 8.0 ?183 8.5 ?197 9.0 ?212 9.5 ?226 10.0 ? 240 Limitations: The eAG calculation has not been validated on women, individuals below 18 years old and above 70 years old, and individuals with hemoglobinopathies. Additional resources are available on [facility] website. Scooby MALDONADO, Nba J, Sydnee R, et al. ??Tr anslating the A1C assay into estimated average glucose values. ??Diabetes Care 2008:31(8):8129-0009. Specimen Anatomical Collection Method Collection Time Receive d Time (Source) Location / / Volume Laterality Blood specimen 06/26/2019 8:02 AM 019 8:11 (specimen) EST AM EST Resulting Agency Comment Spec In Lab Alejo Garnett MD CHEMISTRY ORDERABLES Performing Organization Address City/[facility] [place] [address] (ABNORMAL) Reticulocyte Count (06/26/2019 8:02 AM EST) Patholo gist Method Time Signature Retic Ct % 2.6 0.7 - 2.6 [facility] % [facility]OR[facility] Retic Ct Abs 0.100 0.030 - [facility] 0.120 [facility] x10(6)/[facility] L LABORATORY Immature Retic% 20.4 (H) 0.0 - [facility] 15.6 % [facility] Reticulated Hgb 30.5 (L) 31.3 - [facility] 40.2 pg [facility] Specimen Anatomical Collection Method Collection Time Receive d Time (Source) Location / / Volume Laterality Blood specimen 06/26/2019 8:02 AM 019 8:11 (specimen) EST AM EST Resulting Agency Comment Spec In Lab Alejo Garnett MD HEMATOLOGY ORDERABLES Performing Organization Address City/[facility]/ZIP [facility] Phon e Number [address] (ABNORMAL) Comprehensive metabolic panel (non-fasting) (06/26/2019 8:02 AM EST) P athologist Signature Glucose Lvl 87 65 - 199 [facility] mg/dL [facility] Comment: Diabetes: >=200 mg/dL plus symp toms BUN 26 (H) 10 - 20 mg/dL [facility] Creatinine 1.98 (H) 0.80 - 1.50 mg/dL [facility] Sodium 142 135 - 145 mmol/L [facility] Potassium 4.7 3.5 - 5.0 mmol/L [facility] Comment: Please note: ??Patients with WBC >100,00 0 may have falsely elevated Potassium levels. ??For accurate Potassium quantif ication in these patients send serum separator tube (gold top) for subsequent determinations. ??Contact the Clinical Chemistry Laboratory if there are any qu estions. Chloride 109 (H) 98 - 107 mmol/L [facility] CO2 20 (L) 22 - 31 mmol/L [facility] Anion Gap 13 5 - 15 mmol/L [facility] Calcium 9.3 8.5 - 10.5 mg/dL [facility] Total Protein 7.8 6.1 - 8.0 gm/dL [facility] Albumin 3.4 3.2 - 5.2 gm/dL [facility] AST 18 0 - 39 unit/L [facility] ALT 15 0 - 55 unit/L [facility] Alk Phos 147 (H) 40 - 130 unit/L [facility] Total Bilirubin 0.4 0.2 - 1.3 mg/dL [facility] Estimated GFR 34 (L) >=60 mL/min/1.73 m?? [facility] Comment: The eGFR was calculated using the CKD-EP I equation. As with all creatinine based estimates of kidney function, eGFR values calculated with the CKD-EPI equation are not accurate in patients wi th acute kidney failure, extremes of body mass or the acutely ill. http://Kite/DHnkf eGFR 40 (L) >=60 mL/min/1.73 m?? [facility] Comment: The eGFR was calculated using the CKD-EP I equation. As with all creatinine based estimates of kidney function, eGFR values calculated with the CKD-EPI equation are not accurate in patients wi th acute kidney failure, extremes of body mass or the acutely ill. http://Kite/DHMCnkf Specimen Anatomical Collection Method Collection Time Receive d Time (Source) Location / / Volume Laterality Blood specimen 06/26/2019 8:02 AM 019 8:11 (specimen) EST AM EST Resulting Agency Comment Spec In Lab Alejo Garnett MD CHEMISTRY ORDERABLES Performing Organization Address City/State/ZIP [place] [address] Lipid Panel (Reflex Direct LDL) (06/26/2019 8:02 AM EST) athologist Signature Chol, Total 88 mg/dL [facility] Comment: Lower Risk: <200 mg/dL Average Risk: 200-239 mg/dL Higher Risk: >wx=790 mg/dL Triglycerides 222 mg/dL [facility] Comment: Average Risk/Lower Risk: <150 mg/dL Borderline High Risk: 150-199 mg/dL High Risk: 200-499 mg/dL Very High Risk: >ld=250 mg/dL HDL 23 mg/dL [facility] Comment: Males: ?? Higher Risk: <40 mg/dL Females: ?? HIgher Risk: <50 mg/dL LDL Cholesterol 21 mg/dL [facility] Comment: Lowest Risk: <100 mg/dL Lower Risk: 100-129 mg/dL Borderline High Risk: 130-159 mg/dL High Risk: 160-189 mg/dL Very High Risk: >ah=447 mg/dL Chol/HDL Ratio 3.8 ratio [facility] Lipid Interpretation See Note [facility] Comment: Lipid management should be guided by a p atient? s ASCVD risk, goals and preferences. ACC/AHA Guidelines recommend high intens ity statin if clinical ASCVD or LDL greater than or equal to 190 mg/dL. http://Avuxiurl.com/VWK-NVP-Xwejxxbur Adults aged 40-75 with LDL 70-189 mg/dL should have their 10 year ASCVD risk estimated with the ACC/AHA ASCVD risk es timator http://tools.acc.org/IIGDH-Ejuq-Szjoieab r/ Statin should be discussed if risk [...] Garnett MD CHEMISTRY ORDERABLES Performing Organization Address [facility] Phon e Number [address] Phosphorus (06/26/2019 8:02 AM EST) P athologist Signature Phosphorus 3.5 2.5 - 4.5 SYLVIA [place]UROCOCK mg/dL [facility] Specimen Anatomical Collection Method Collection Time Receive d Time (Source) Location / / Volume Laterality Blood specimen 06/26/2019 8:02 AM 019 8:11 (specimen) EST AM EST Resulting Agency Comment Spec In Lab Alejo Garnett MD CHEMISTRY ORDERABLES Performing Organization Address City/[facility]/[place] [address] (ABNORMAL) Magnesium (06/26/2019 8:02 AM EST) P athologist Signature Magnesium 0.68 (L) 0.69 - 1.07 SYLVIA GARRISON mmol/L [facility] Specimen Anatomical Collection Method Collection Time Receive d Time (Source) Location / / Volume Laterality Blood specimen 06/26/2019 8:02 AM 019 8:11 (specimen) EST AM EST Resulting Agency Comment Spec In Lab Alejo Garnett MD CHEMISTRY ORDERABLES Performing Organization Address City/[facility] [place] [address] Uric acid (06/26/2019 8:02 AM EST) athologist Signature Uric Acid 8.2 3.5 - 8.5 SYLVIA [place] mg/dL [facility] Specimen Anatomical Collection Method Collection Time Receive d Time (Source) Location / / Volume Laterality Blood specimen 06/26/2019 8:02 AM 019 8:11 (specimen) EST AM EST Resulting Agency Comment Spec In Lab Alejo Garnett MD CHEMISTRY ORDERABLES Performing Organization Address City/State/ZIP Code Phon e Number [address] (ABNORMAL) PTH (06/26/2019 8:02 AM EST) athologist Signature PTH 140 (H) 15 - 65 SYLVIA [place] pg/mL [facility] Specimen Anatomical Collection Method Collection Time Receive d Time (Source) Location / / Volume Laterality Blood specimen 06/26/2019 8:02 AM 019 8:11 (specimen) EST AM EST Resulting Agency Comment Spec In Lab Alejo Garnett MD CHEMISTRY ORDERABLES Performing Organization Address City/[facility]/ZIP Code Phon e Number [address] Vitamin D, 25-Hydroxy (06/26/2019 8:02 AM EST) athologist Signature 25-OH Vit D 34 30 - 100 SYLVIA MELI Total ng/mL [facility] Comment: As of 2019, 25-hydroxyvitamin D [...] Organization Address City/State/ZIP Code Phon e Number [address] (ABNORMAL) 1,25-dihydroxycholecalciferol (06/26/2019 8:02 AM EST) P athologist Signature Vit D 1,25 17 (L) 18 - 64 [facility] pg/mL [facility] Comment: ADDITIONAL INFORMATIO N This test was developed and its performa nce characteristics determined by [facility] in a manner co nsistent with CLIA requirements. This test has not been carlos ared or approved by the U.S. Food and Drug Administration. Test Performed by: [facility] [address] [place] [id number] Customer Leader: Van White M.D. Ph. D.; CLIA# [id number] Specimen Anatomical Collection Method Collection Time Receive d Time (Source) Location / / Volume Laterality Blood specimen 06/26/2019 8:02 AM 019 (specimen) EST 11:15 AM EST Resulting Agency Comment Spec In Lab Alejo Garnett MD CHEMISTRY ORDERABLES Performing Organization Address City/State/ZIP Code Phon e Number [address] Gold Tube HOLD (06/26/2019 8:02 AM EST) athologist Signature Gold Hold Sample in [facility]. [facility] Specimen Anatomical Collection Method Collection Time Receive d Time (Source) Location / / Volume Laterality Blood specimen 06/26/2019 8:02 AM 019 8:11 (specimen) EST AM EST Alejo Garnett MD CHEMISTRY ORDERABLES Performing Organization Address City/State/ZIP Code Phon e Number [address] Lavender Tube HOLD (06/26/2019 8:02 AM EST) Patholo gist Method Time Signature Lavender Hold Sample in [facility]. [facility] Specimen Anatomical Collection Method Collection Time Receive d Time (Source) Location / / Volume Laterality Blood specimen 06/26/2019 8:02 AM 12/03/2 019 8:11 (specimen) EST AM EST Alejo Garnett MD HEMATOLOGY ORDERABLES Performing Organization Address City/State/[place] [address] Tacrolimus level (06/26/2019 8:02 AM EST) P athologist Signature Tacrolimus Lvl 5.4 ng/mL [facility] Comment: Trough therapeutic: ??5-15 ng/mL Performed by ultra-performance liquid ch romatography tandem mass spectrometry (UPLCMS/MS). This test was developed and its performa nce characteristics determined by [facility]. It has not been cleared or [...] Organization Address City/State/[place] [address] documented in this encounter Visit Diagnoses Diagnosis Transplanted kidney Kidney replaced by transplant Aftercare following organ transplant Prophylactic immunotherapy Need for prophylactic immunotherapy documented in this encounter Care Teams Deputy Manager Relationship Specialty Start Date End Date Violetta Sanford MD PCP - General 04/02/14 [address] [place] [address] documented as of this encounter
--- OUTSIDE RECORDS SUMMARY | 2022-05-24 10:52 | XMS_ITS | Encounter Summary ---
:1955 Author Organization [facility] [place] [address] Care Team Providers Name Role Phone Violetta Sanford MD Primary Care Provider Encounter Details Date Type Department Care Team Description 03/20/2019 Orders Only Solid Organ Transplant Sherry Abad RN H /[place] [address] Social History Tobacco Use Types Packs/Day [...] Panda PA [facility] er Dr Rodriguez [place] [address] (Wo rk) 06/02/2022 Infusion Hematology and Oncology 06/16/2022 Infusion Hematology and Oncology 06/21/2022 Office Visit Neurology Tyler Rojas MD [facility] er Dr Sofi [place], [place] [address] 6-2022 (Wo rk) 06/30/2022 Infusion Hematology and Oncology 07/14/2022 Infusion Hematology and Oncology 07/28/2022 Infusion Hematology and Oncology 08/11/2022 Infusion Hematology and Oncology 11/04/2022 Office Visit Rheumatology Dante Freedman PA [facility] [address] [place] [address] (Wo rk) Scheduled Orders Name Type Priority Associated Diagnoses Order S chedule Protein/Creatinine Lab STAT H/O kidney transplant Expected: 03/21/2019, Ratio, urine Expires: 2020 documented as of this encounter Results Magnesium, urine, random (03/21/2019 9:21 AM EDT) athologist Signature U Mg Ran 2.21 mmol/L [facility] Specimen Anatomical Collection Method Collection Time Receive d Time (Source) Location / / Volume Laterality Urine specimen 03/21/2019 9:21 AM 019 9:34 (specimen) EDT AM EDT Resulting Agency Comment Spec In Lab Alejo Garnett MD URINE ORDERABLES Performing Organization Address City/State/[place] [address] (ABNORMAL) Protein/Creatinine Ratio, urine (03/21/2019 9:21 AM EDT) P athologist Signature U Creatinine 64 mg/dL [facility] U Protein Ran 73 (H) 0 - 12 [facility] mg/dL [facility] Prot/Cre Ratio 1.1 ratio [facility] Specimen Anatomical Collection Method Collection Time Receive d Time (Source) Location / / Volume Laterality Urine specimen 03/21/2019 9:21 AM 019 9:34 (specimen) EDT AM EDT Resulting Agency Comment Spec In Lab Alejo Garnett MD URINE ORDERABLES Performing Organization Address City/State/ZIP Code Phon e Number [address] Phosphorus, urine, random (03/21/2019 9:21 AM EDT) P athologist Signature U Phosphorus 45.1 mg/dL [facility] Specimen Anatomical Collection Method Collection Time Receive d Time (Source) Location / / Volume Laterality Urine specimen 03/21/2019 9:21 AM 019 9:34 (specimen) EDT AM EDT Resulting Agency Comment Spec In Lab Alejo Garnett MD URINE ORDERABLES Performing Organization Address City/State/ZIP Code Phon e Number [address] Calcium Creatinine Ratio, random urine (03/21/2019 9:21 AM EDT) P athologist Signature U Calcium 2.0 mg/dL [facility] U Creatinine 64 mg/dL [facility] Ca/Cre Ratio 0.03 ratio [facility] Specimen Anatomical Collection Method Collection Time Receive d Time (Source) Location / / Volume Laterality Urine specimen 03/21/2019 9:21 AM 019 9:34 (specimen) EDT AM EDT Resulting Agency Comment Spec In Lab Alejo Garnett MD URINE ORDERABLES Performing Organization Address City/[facility]/ZIP Code Phon e Number [address] BKV Quant Urine (03/21/2019 9:21 AM EDT) Component Value Ref Test Analysis Performed At [facility] gist Range Method Time Signature BKV Urine Not Detected [facility] LABORATORY BKV Urine BK Virus Urine Result Interpretation [facility] Result: BK Virus not detected HOSPITAL Specimen type: urine LABORATOR Y Assay Range: 2.80-7.80 log copies/mL (6.28x10^2 - 6.28x10^7 copies/mL) Methods: Quantitative real-time polymerase chain react ion (PCR) of viral DNA isolated from plasma was performed using [employer] BKV analyte-specific reagents and the MailTime System that automates both nucleic a alonzo [...] and Advanc ed Technology (CGAT) Laboratory at [facility]. It has not been cleared or approved [...] Organization Address City/State/ZIP Code Phon e Number [place] [phone] (ABNORMAL) Urinalysis with reflex Culture (03/21/2019 9:21 AM EDT) [facility] gist Method Time Signature Glucose UA Negative Negative [facility] mg/dL [facility] Protein UA 100 (A) Negative [facility] mg/dL [facility] Bilirubin UA Negative Negative [facility] mg/dL [facility] Comment: Clinical correlation required for positi ve Urine Bilirubin results as false positive may occur with some drugs and d rug related products. If a false positive is suspected a serum total bili reyna should be considered if clinically indicated. Urobilinogen UA Normal Normal mg/dL [facility] pH UA 6.0 5.0 - 8.0 [facility] Blood UA Negative Negative mg/dL [facility] Ketones UA Negative Negative mg/dL [facility] Nitrite UA Negative Negative [facility] Leukocytes UA Negative Negative [facility] LABORATORY Appearance UA Clear Clear [facility] Spec [place] UA 1.013 1.002 - 1.030 [facility] Color UA Yellow Yellow [facility] Culture Reflexed No [facility] Specimen (Source) Anatomical Collection Method Collection Time Re ceived Time Location / / Volume Laterality Urine specimen 03/21/2019 9:21 03/21/2019 9:34 obtained by clean AM EDT AM EDT catch procedure (specimen) Resulting Agency Comment Spec In Lab Alejo Garnett MD URINE ORDERABLES Performing Organization Address City/[facility]/ZIP Code Phon e Number [place] [phone] Tacrolimus level (03/21/2019 8:51 AM EDT) athologist Signature Tacrolimus Lvl 4.6 ng/mL [facility] Comment: Trough therapeutic: ??5-15 ng/mL Performed by ultra-performance liquid ch romatography tandem mass spectrometry (UPLCMS/MS). This test was developed and its performa nce characteristics determined by [facility]. It has not been cleared or approved [...] Garnett MD CHEMISTRY ORDERABLES Performing Organization Address City/[facility]/ZIP [place] [address] 1,25-dihydroxycholecalciferol (03/21/2019 8:51 AM EDT) P athologist Signature Vit D 18 - [address] [facility] MEL[facility] pg/mL [facility] Comment: ADDITIONAL INFORMATIO N This test was developed and its performa nce characteristics determined by [facility] in a manner co nsistent with CLIA requirements. This test has not been carlos ared or approved by the U.S. Food and Drug Administration. Test Performed by: [facility] [address] [place] [id number] Information Assoc: Van White M.D. Ph. D.; CLIA# [id number] Specimen Anatomical Collection Method Collection Time Receive d Time (Source) Location / / Volume Laterality Blood specimen 03/21/2019 8:51 AM 019 (specimen) EDT 11:15 AM EDT Resulting Agency Comment Spec In Lab Alejo Garnett MD CHEMISTRY ORDERABLES Performing Organization Address City/[facility]/ZIP Code Phon e Number [address] Lavender Tube HOLD (03/21/2019 8:51 AM EDT) Patholo gist Method Time Signature Lavender Hold Sample in [facility] Specimen Anatomical Collection Method Collection Time Receive d Time (Source) Location / / Volume Laterality Blood specimen 03/21/2019 8:51 AM 019 8:57 (specimen) EDT AM EDT Alejo Garnett MD HEMATOLOGY ORDERABLES Performing Organization Address City/[facility]/ZIP Code Phon e Number [place] [phone] Gold Tube HOLD (03/21/2019 8:51 AM EDT) P athologist Signature Gold Hold Sample in [facility] LABORATORY Specimen Anatomical Collection Method Collection Time Receive d Time (Source) Location / / Volume Laterality Blood specimen 03/21/2019 8:51 AM 019 8:57 (specimen) EDT AM EDT Alejo Garnett MD CHEMISTRY ORDERABLES Performing Organization Address City/[facility]/[place] [address] Vitamin D, 25-Hydroxy (03/21/2019 8:51 AM EDT) P athologist Signature 25-OH Vit D 31 30 - 100 [facility] Total ng/mL [facility] Comment: Deficient <10 ng/mL Insufficient 10 to 29 ng/mL Sufficient 30 to 100 ng/mL Potential Intoxication >100 ng/mL According to the US National Osteoporosi s Foundation, Vitamin D concentrations >30 ng/mL are sufficient to protect bone health. ??The National Kidney Foundation has similarly stated that pat ients with Vitamin D concentrations <30ng/mL should be considered to be insu fficient or deficient. http://Concurrent Thinking.CrowdProcess/nkf-guidelines http://Concurrent Thinking.CrowdProcess/nejm-VitD The IDS iSYS Vitamin D Immunoassay detec [...] Garnett MD CHEMISTRY ORDERABLES Performing Organization Address City/[facility]/ZIP Code Phon e Number [address] (ABNORMAL) PTH (03/21/2019 8:51 AM EDT) P athologist Signature PTH 92 (H) 15 - 65 J[facility] MELI pg/mL [facility] Specimen Anatomical Collection Method Collection Time Receive d Time (Source) Location / / Volume Laterality Blood specimen 03/21/2019 8:51 AM 019 8:57 (specimen) EDT AM EDT Resulting Agency Comment Spec In Lab Alejo Garnett MD CHEMISTRY ORDERABLES Performing Organization Address City/State/ZIP Code Phon e Number [address] Uric acid (03/21/2019 8:51 AM EDT) P athologist Signature Uric Acid 7.5 3.5 - 8.5 [facility] mg/dL [facility] Specimen Anatomical Collection Method Collection Time Receive d Time (Source) Location / / Volume Laterality Blood specimen 03/21/2019 8:51 AM 019 8:57 (specimen) EDT AM EDT Resulting Agency Comment Spec In Lab Alejo Garnett MD CHEMISTRY ORDERABLES Performing Organization Address City/State/ZIP Code Phon e Number [address] (ABNORMAL) Magnesium (03/21/2019 8:51 AM EDT) P athologist Signature Magnesium 0.62 (L) 0.69 - 1.07 [facility] mmol/L [facility] Specimen Anatomical Collection Method Collection Time Receive d Time (Source) Location / / Volume Laterality Blood specimen 03/21/2019 8:51 AM 019 8:57 (specimen) EDT AM EDT Resulting Agency Comment Spec In Lab Alejo Garnett MD CHEMISTRY ORDERABLES Performing Organization Address City/[facility]/ZIP Code Phon e Number [address] Phosphorus (03/21/2019 8:51 AM EDT) P athologist Signature Phosphorus 3.4 2.5 - 4.5 [facility] mg/dL [facility] Specimen Anatomical Collection Method Collection Time Receive d Time (Source) Location / / Volume Laterality Blood specimen 03/21/2019 8:51 AM 019 8:57 (specimen) EDT AM EDT Resulting Agency Comment Spec In Lab Alejo Garnett MD CHEMISTRY ORDERABLES Performing Organization Address City/[facility]/[place] [address] Lipid Panel (03/21/2019 8:51 AM EDT) P athologist Signature Chol, Total 96 mg/dL [facility] Comment: Lower Risk: <200 mg/dL Average Risk: 200-239 mg/dL Higher Risk: >ip=899 mg/dL Triglycerides 184 mg/dL [facility] Comment: Average Risk/Lower Risk: <150 mg/dL Borderline High Risk: 150-199 mg/dL High Risk: 200-499 mg/dL Very High Risk: >dd=215 mg/dL HDL 24 mg/dL [facility] Comment: Males: ?? Higher Risk: <40 mg/dL Females: ?? HIgher Risk: <50 mg/dL LDL Cholesterol 35 mg/dL [facility] Comment: Lowest Risk: <100 mg/dL Lower Risk: 100-129 mg/dL Borderline High Risk: 130-159 mg/dL High Risk: 160-189 mg/dL Very High Risk: >qx=253 mg/dL Chol/HDL Ratio 4.0 ratio [facility] Lipid Interpretation See Note [facility] Comment: Lipid management should be guided by a p atient? s ASCVD risk, goals and preferences. ACC/AHA Guidelines recommend high intens ity statin if clinical ASCVD or LDL greater than or equal to 190 mg/dL. http://Concurrent Thinking.com/FPY-ZUR-Fyuoxgixz Adults aged 40-75 with LDL 70-189 mg/dL should have their 10 year ASCVD risk estimated with the ACC/AHA ASCVD risk es timator http://tools.acc.org/NTBVE-Idgb-Xluqsjhb r/ Statin should be discussed if risk [...] Organization Address City/State/ZIP [place] [address] (ABNORMAL) Comprehensive metabolic panel (non-fasting) (03/21/2019 8:51 AM EDT) athologist Signature Glucose Lvl 176 65 - 199 [facility] mg/dL [facility] Comment: Diabetes: >=200 mg/dL plus symp toms BUN 23 (H) 10 - 20 mg/dL [facility] Creatinine 1.88 (H) 0.80 - 1.50 mg/dL [facility] Sodium 139 135 - 145 mmol/L [facility] Potassium 4.7 3.5 - 5.0 mmol/L [facility] Comment: Please note: ??Patients with WBC >100,00 0 may have falsely elevated Potassium levels. ??For accurate Potassium quantif ication in these patients send serum separator tube (gold top) for subsequent determinations. ??Contact the Clinical Chemistry Laboratory if there are any qu estions. Chloride 105 98 - 107 mmol/L [facility] CO2 25 22 - 31 mmol/L [facility] Anion Gap 9 5 - 15 mmol/L [facility] Calcium 9.4 8.5 - 10.5 mg/dL [facility] Total Protein 7.8 6.1 - 8.0 gm/dL [facility] Albumin 3.4 3.2 - 5.2 gm/dL [facility] AST 35 0 - 39 unit/L [facility] ALT 48 0 - 55 unit/L [facility] Alk Phos 158 (H) 40 - 130 unit/L [facility] Total Bilirubin 0.5 0.2 - 1.3 mg/dL [facility] Estimated GFR 37 (L) >=60 mL/min/1.73 m?? [facility] Comment: The eGFR was calculated using the CKD-EP I equation. As with all creatinine based estimates of kidney function, eGFR values calculated with the CKD-EPI equation are not accurate in patients wi th acute kidney failure, extremes of body mass or the acutely ill. http://Concurrent Thinking.CrowdProcess/DHMCnkf eGFR 42 (L) >=60 mL/min/1.73 m?? [facility] Comment: The eGFR was calculated using the CKD-EP I equation. As with all creatinine based estimates of kidney function, eGFR values calculated with the CKD-EPI equation are not accurate in patients wi th acute kidney failure, extremes of body mass or the acutely ill. http://Concurrent Thinking.CrowdProcess/DHMCnkf Specimen Anatomical Collection Method Collection Time Receive d Time (Source) Location / / Volume Laterality Blood specimen 03/21/2019 8:51 AM 019 8:57 (specimen) EDT AM EDT Resulting Agency Comment Spec In Lab Alejo Garnett MD CHEMISTRY ORDERABLES Performing Organization Address [facility] Phon e Number [address] (ABNORMAL) Reticulocyte Count (03/21/2019 8:51 AM EDT) Patholo gist Method Time Signature Retic Ct % 2.6 0.7 - 2.6 [facility] Retic Ct Abs 0.090 0.030 - [facility] 0.120 [facility] x10(6)/[facility] L LABORATORY Immature Retic% 23.7 (H) 0.0 - [facility] 15.6 % [facility] Reticulated Hgb 29.3 (L) 31.3 - [facility] 40.2 pg [facility] Specimen Anatomical Collection Method Collection Time Receive d Time (Source) Location / / Volume Laterality Blood specimen 03/21/2019 8:51 AM 8:57 (specimen) EDT AM EDT Resulting Agency Comment Spec In Lab Alejo Garnett MD HEMATOLOGY ORDERABLES Performing Organization Address [facility] [place] [address] (ABNORMAL) Hemoglobin A1c (03/21/2019 8:51 AM EDT) Analysis Performed At Patho logist Time Signature Hemoglobin A1C 8.0 (H) 4.3 - 5.6 [facility] Comment: Reference Range: 4.3 - [...] Mellitus, Diabetes Care 2013; 36: Suppl. 1, S67-96 Est Avg Gluc 183 mg/dL [facility] Comment: eAG equivalents for HbA1c percentages: HbA1c(%) ?eAG(mg/dL) 6.0 ?126 6.5 ?140 7.0 ?154 7.5 ?169 8.0 ?183 8.5 ?197 9.0 ?212 9.5 ?226 10.0 ? 240 Limitations: The eAG calculation has not been validated on women, individuals below 18 years old and above 70 years old, and individuals with hemoglobinopathies. Additional resources are available on [facility] ADA website. Scooby MALDONADO, Nba J, Sydnee R, et al. ??Tr anslating the A1C assay into estimated average glucose values. ??Diabetes Care 2008:31(8):7923-7829. Specimen Anatomical Collection Method Collection Time Receive d Time (Source) Location / / Volume Laterality Blood specimen 03/21/2019 8:51 AM 019 8:57 (specimen) EDT AM EDT Resulting Agency Comment Spec In Lab Alejo Garnett MD CHEMISTRY ORDERABLES Performing Organization Address City/State/ZIP [place] [address] documented in this encounter Visit Diagnoses Diagnosis H/O kidney transplant Kidney replaced by transplant documented in this encounter Care Teams Senior Receptionist Relationship Specialty Start Date End Date Violetta Sanford MD PCP - General 04/02/14 [address] [place] [address] documented as of this encounter
--- OUTSIDE RECORDS SUMMARY | 2022-05-24 10:52 | XMS_ITS | Encounter Summary ---
:1955 Author Organization [facility] [place] [address] Care Team Providers Name Role Phone Violetta Sanford MD Primary Care Provider Encounter Details Date Type Department Care Team Description 06/27/2019 Telephone Neurology at [facility] Shivam Rojas MD [facility] [place] [id number] Neurology [phone] [place], [place] [phone] (Wo rk) Social History [...] Encounter - Aliza Joseph RN - 06/27/2019 4:19 PM EST Received a call back from patient and I relayed message: He will need to have his Prograf (Tacrolimus) levels checked every week while we are working on his primidone uptitration. Can you help get these done locally and make sure they get us the results and know to call you to figure out how to adjust the Prograf? IT can be a big problem if that does not happen - he could reject his kidney transplant. He was agreeable to have his levels checked every week at [facility]. I told him I would send them the labrequests for his blood draws for the next month to start with. I will also tell the lab at [facility] to have the results sent to us at [facility] neurology. He stated he would start to take half tab as ordered and keep that dose until we get the lab resultsand get back to him. He stated that he would get his labs drawn every Tuesday or Tuesday. Lab requests sent to [facility] lab. documented in this encounter Plan of Treatment Upcoming Encounters Date Type Specialty Care Team Description 05/26/2022 Office Visit Otolaryngology Ricardo Panda PA [facility] [place] [address] (Wo rk) 06/02/2022 Infusion Hematology and Oncology 06/16/2022 Infusion Hematology and Oncology 06/21/2022 Office Visit Neurology Tyler Rojas MD [facility] Neurology [place], [place] [phone] (Wo rk) 06/30/2022 Infusion Hematology and Oncology 07/14/2022 Infusion Hematology and Oncology 07/28/2022 Infusion Hematology and Oncology 08/11/2022 Infusion Hematology and Oncology 11/04/2022 Office Visit Rheumatology Dante Freedman PA [facility] [place] [address] (Wo rk) documented as of this encounter Visit Diagnoses Diagnosis Neuropathic pain Neuralgia, neuritis, and radiculitis, un specified Tremor, essential Essential and other specified forms of t remor Diabetic polyneuropathy associated with type 2 diabetes mellitus documented in this encounter Care Teams Vigoureux Printer Relationship Specialty Start Date End Date Violetta Sanford MD PCP - General 04/02/14 [address] [place] [address] documented as of this encounter
--- OUTSIDE RECORDS SUMMARY | 2022-05-24 10:52 | XMS_ITS | Encounter Summary ---
:1955 Author Organization [facility] [place] [address] Care Team Providers Name Role Phone Violetta Sanford MD Primary Care Provider Encounter Details Date Type Department Care Team Description 03/13/2019 [facility] [place] [address] Social History Tobacco Use Types Packs/Day Years [...] Office Visit Otolaryngology Ricardo Panda PA [facility] er Dr [place] [address] (Wo rk) 06/02/2022 Infusion Hematology and Oncology 06/16/2022 Infusion Hematology and Oncology 06/21/2022 Office Visit Neurology Tyler Rojas MD [facility] er Dr [place] [address]22 (Wo rk) 06/30/2022 Infusion Hematology and Oncology 07/14/2022 Infusion Hematology and Oncology 07/28/2022 Infusion Hematology and Oncology 08/11/2022 Infusion Hematology and Oncology 11/04/2022 Office Visit Rheumatology Dante Freedman PA [facility] RHEUMATOLOGY [place], [place] [address] (Wo rk) documented as of this encounter Visit Diagnoses Not on filedocumented in this encounter Care Teams Mount Loader Relationship Specialty Start Date End Date Violetta Sanford MD PCP - General 04/02/14 [address] [facility] [address] [place] [address] documented as of this encounter
--- OUTSIDE RECORDS SUMMARY | 2022-05-24 10:52 | XMS_ITS | Encounter Summary ---
:1955 Author Organization [facility] [place] [address] Care Team Providers Name Role Phone Violetta Sanford MD Primary Care Provider Reason for Visit Reason Onset Date Comments Medication Refill 05/15/2018 Encounter Details Date Type Department Care Team Description 05/15/2018 Refill Solid Organ Transplant at Loraine Galvan [place] [address] Social History Tobacco Use Types Packs/Day [...] Panda PA [facility] [address] [place] [address] (Wo rk) 06/02/2022 Infusion Hematology and Oncology 06/16/2022 Infusion Hematology and Oncology 06/21/2022 Office Visit Neurology Tyler Rojas MD [facility] Dr [address] [place] [phone] (Wo rk) 06/30/2022 Infusion Hematology and Oncology 07/14/2022 Infusion Hematology and Oncology 07/28/2022 Infusion Hematology and Oncology 08/11/2022 Infusion Hematology and Oncology 11/04/2022 Office Visit Rheumatology Dante Freedman PA [facility] RHEUMATOLOGY [place], [place] [address] (Wo rk) documented as of this encounter Visit Diagnoses Diagnosis Transplanted kidney Kidney replaced by transplant documented in this encounter Care Teams Alliance Director Relationship Specialty Start Date End Date Violetta Sanford MD PCP - General 04/02/14 [address] [place] [address] documented as of this encounter
--- OUTSIDE RECORDS SUMMARY | 2022-05-24 10:52 | XMS_ITS | Encounter Summary ---
:1955 Author Organization [facility] [place] [address] Care Team Providers Name Role Phone Violetta Sanford MD Primary Care Provider Reason for Visit Reason Comments Medication Refill Encounter Details Date Type Department Care Team Description 03/13/2019 Refill Solid Organ Transplant at [facility] Alejo france MD [facility] Giovana tyler [place] [address] [place] [address] [phone] (Wo rk) Social History Tobacco Use Types [...] [place] [facility] [place] [address] (Wo rk) 06/02/2022 Infusion Hematology and Oncology 06/16/2022 Infusion Hematology and Oncology 06/21/2022 Office Visit Neurology Tyler Rojas MD [facility] er Neurology [place], [place] [phone] (Wo rk) 06/30/2022 Infusion Hematology and Oncology 07/14/2022 Infusion Hematology and Oncology 07/28/2022 Infusion Hematology and Oncology 08/11/2022 Infusion Hematology and Oncology 11/04/2022 Office Visit Rheumatology Dante Freedman PA [facility] RHEUMATOLOGY [place], [place] [address] (Wo rk) documented as of this encounter Visit Diagnoses Not on filedocumented in this encounter Care Teams Manager Recruiting Relationship Specialty Start Date End Date Violetta Sanford MD PCP - General 04/02/14 [address] [place] [address] documented as of this encounter
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
--- OUTSIDE RECORDS SUMMARY | 2022-05-24 10:52 | XMS_ITS | Encounter Summary ---
:1955 Author Organization [facility] [place] [address] Care Team Providers Name Role Phone Violetta Sanford MD Primary Care Provider Reason for Visit Reason Comments Medication Refill Encounter Details Date Type Department Care Team Description 03/12/2019 [facility] [place] [address] TRANSPLANT SURGERY [phone] [place], [place] [address] (Wo rk) Social History Tobacco [...] Panda PA [facility] [place], [place] [address] (Wo rk) 06/02/2022 Infusion Hematology and Oncology 06/16/2022 Infusion Hematology and Oncology 06/21/2022 Office Visit Neurology Tyler Rojas MD [facility] er Neurology [place], [place] [phone] (Wo rk) 06/30/2022 Infusion Hematology and Oncology 07/14/2022 Infusion Hematology and Oncology 07/28/2022 Infusion Hematology and Oncology 08/11/2022 Infusion Hematology and Oncology 11/04/2022 Office Visit Rheumatology Dante Freedman PA [facility] RHEUMATOLOGY [place], [place] 0[address] (Wo rk) documented as of this encounter Visit Diagnoses Diagnosis Transplanted kidney Kidney replaced by transplant documented in this encounter Care Teams Cancer Registry Coordinator Relationship Specialty Start Date End Date Violetta Sanofrd MD PCP - General 04/02/14 [address] [place] [address] documented as of this encounter
--- OUTSIDE RECORDS SUMMARY | 2022-05-24 10:52 | XMS_ITS | Encounter Summary ---
:1955 Author Organization [facility] [place] [address] Care Team Providers Name Role Phone Violetta Sanford MD Primary Care Provider Encounter Details Date Type Department Care Team Description 05/04/2018 Telephone Solid Organ Transplant [place] [address] Social History Tobacco Use Types Packs/Day Years [...] Telephone Encounter - Aria Khan RN - 05/04/2018 4:19 PM EDT ?? Pt called in to report the following: He went to [facility] because he wasn't feeling good. He did not elaborate. He was given: Prednisone 20 mg - total of 12 pills-thinks he's to take 3 a day. Levofloxacin - 700 mg - 1 a day for 7 days Is ok for him to takes these? I reviewed the above with Dr. Garnett. Per Dr. Garnett all medications are OK for him to take. I left a message for the pt to relay the above. documented in this encounter Plan of Treatment Upcoming Encounters Date Type Specialty Care Team Description 05/26/2022 Office Visit Otolaryngology Ricardo Panda PA [facility] [place] [address] (Wo rk) 06/02/2022 Infusion Hematology and Oncology 06/16/2022 Infusion Hematology and Oncology 06/21/2022 Office Visit Neurology Tyler Rojas MD [facility] Neurology [place], [place] [phone] (Wo rk) 06/30/2022 Infusion Hematology and Oncology 07/14/2022 Infusion Hematology and Oncology 07/28/2022 Infusion Hematology and Oncology 08/11/2022 Infusion Hematology and Oncology 11/04/2022 Office Visit Rheumatology Dante Freedman PA [facility] RHEUMATOLOGY [place] [address] (Wo rk) documented as of this encounter Visit Diagnoses Not on filedocumented in this encounter Care Teams Organ Recovery Coordinator Relationship Specialty Start Date End Date Violetta Sanford MD PCP - General 04/02/14 [address] [place] [address] documented as of this encounter
--- OUTSIDE RECORDS SUMMARY | 2022-05-24 10:52 | XMS_ITS | Encounter Summary ---
:1955 Author Organization [facility] [place] [address] Care Team Providers Name Role Phone Violetta Sanford MD Primary Care Provider Encounter Details Date Type Department Care Team Description 06/26/2019 Office Visit Neurology at [facility] Shivam Rojas Tremor, essential; [facility] MD James Neuropathic pain; Drive [facility] Diabetic polyneuropathy asso ciated with type 2 [place] [address] Neurology [phone] [place] [address] Social History Tobacco Use Types Packs/Day Years [...] Sign Reading Time Taken Comments Blood Pressure 133/54 06/26/2019 8:20 AM EST Pulse 78 06/26/2019 8:20 AM EST Temperature - - Respiratory Rate - - Oxygen Saturation - - Inhaled Oxygen Concentration - - Weight 137 kg (302 lb) 06/26/2019 8:20 AM Reported- Whe elchair EST Height 193 cm (6' 4) 06/26/2019 8:20 AM Reported EST Body Mass Index 36.76 06/26/2019 8:20 AM EST documented in this encounter Patient Instructions Patient InstructionsShivam Rojas MD - 06/26/2019 8:30 AM EST Start 1/2 a primidone at night for 2 weeks. If tolerated you can increase to 1 pill at night after that for 2 weeks. Then if tolerated and if tremor is still bothersome you can add 1/2 pill in the morning for at least2 weeks. Then if you are not too sleepy and do not have other side effects you can go to 1 pill in the morning and 1 pill at night. Come see me or call after that and we can talk about increasing the dose further. documented in this encounter Progress Notes Shivam Rojas MD - 06/26/2019 8:30 AM EST Leroy Torres is a 64 y.o. male with diabetes, neuropathic and phantom pains, [...] He also takes gabapentin 900 mg twice (written TID) a day. He continues to get severe phantom pains at times. There is no rhyme or reason to this and he cannot predict any triggers, it is not clear that gabapentin helps. I saw him last 03/2018. He made a follow-up appointment today because he feels the tremors are much worse. It makes it hard to drink coffee or use a spoon. We discussed various options. I do not think we can increase his propranolol at all. Other options might be primidone, Klonopin, or zonisamide. He has a history of kidney disease status post transplant. Zonisamide might be fine but if he does develop an idiosyncratic kidney stone with obstructive kidney issues that would probably be disastrous, though this would be extraordinarily rare. Primidone might be another good option, except it may decrease his Prograf levels. I will reach out to his transplant physician Dr. Garnett by email. I would favor starting primidone at a low dose and adjusting his transplant medications as needed, but obviously rejection would be disastrous and that should take precedence. At the same time he is quite bothered by his tremor and would really like some treatment.I think the cognitive and neuropsychiatric side effect profile of Klonopin makes this a bad choice for him. I will plan to see him back in 2 months but we will touch base sooner by phone as needed. We spent 25 minutes in consultation, the majority of which was spent in supportive counseling and therapeutic planning. Shivam Rojas MD 06/26/2019 Packaging Line Attendant General Neurology and Clinical Neurophysiology [facility] Department of Neurology documented in this encounter Plan of Treatment Upcoming Encounters Date Type Specialty Care Team Description 05/26/2022 Office Visit Otolaryngology Ricardo Panda PA [facility] Dr [place] [address] (Wo rk) 06/02/2022 Infusion Hematology and Oncology 06/16/2022 Infusion Hematology and Oncology 06/21/2022 Office Visit Neurology Tyler Rojas MD [facility] Dr [place] [phone] (Wo rk) 06/30/2022 Infusion Hematology and Oncology 07/14/2022 Infusion Hematology and Oncology 07/28/2022 Infusion Hematology and Oncology 08/11/2022 Infusion Hematology and Oncology 11/04/2022 Office Visit Rheumatology Dante Freedman PA [facility] RHEUMATOLOGY [place] [address] (Wo rk) documented as of this encounter Visit Diagnoses Diagnosis Tremor, essential Essential and other specified forms of t remor Neuropathic pain Neuralgia, neuritis, and radiculitis, un specified Diabetic polyneuropathy associated with type 2 diabetes mellitus documented in this encounter Care Teams Fast Food Fry Cook Relationship Specialty Start Date End Date Violetta Sanford MD PCP - General 04/02/14 [address] [place] [address] documented as of this encounter
--- OUTSIDE RECORDS SUMMARY | 2022-05-24 10:53 | XMS_ITS | Encounter Summary ---
:1955 Author Organization [facility] [place] [address] Care Team Providers Name Role Phone Violetta Sanford MD Primary Care Provider Encounter Details Date Type Department Care Team Description 12/07/2016 Office Visit Endocrinology at [facility] Donell Hernandez, Uncontrolled type 2 diabetes mellitus with complication, with long-term current use of insulin; [facility] S/P bilateral BKA (below knee amputation ); [facility] CKD (chronic kidney disease) stage 3, GFR 30-59 ml/[place] [address] CENTER [phone] ENDOCRINOLOGY DEPT. [place], [place] [address] Social History Tobacco Use Types [...] Sign Reading Time Taken Comments Blood Pressure 125/46 12/07/2016 11:26 AM EDT Pulse 66 12/07/2016 11:26 AM EDT Temperature - - Respiratory Rate - - Oxygen Saturation - - Inhaled Oxygen Concentration - - Weight 149.7 kg (330 lb) 12/07/2016 11:26 AM EDT Height 198.1 cm (6' 6) 12/07/2016 11:26 AM EDT Body Mass Index 38.14 12/07/2016 11:26 AM EDT documented in this encounter Progress Notes Donell Hernandez MD - 12/07/2016 11:30 AM EDT Year of diagnosis: Regimen ____ [...] bka R and morbid obesity. From May 2016 1) DM2- his diabetes control is stable at an HA1c of 8.5-9 %. He can do better when active. My goal for him is an HA1c under 8.5 %, so I increased his insulins (he asked not to increase the pm levemirebecause he would need to do 2 shots): I recommended going up to 50 of levemir in the am Stay with 80 of levemire in the pm Stay with 40-50 units of humalog for meals We peter use 10 PM NPH in addition to his levemire if these changes do not get the HA1c under 8.5 % 2) bilateral BKA- getting new liners today to help with chronic ulcerations 3) history of renal transplant 4) sleep apnea 5) past treatment for retinopathy 6) morbid obesity occ CPAP - does not feel better Stump ulcers resolved Has new legs Uses a diabetic skin lotion (Gold Lam) Wearing shrinkers again Has improved diabetes control (I gave up donuts) and had an HA1c under 7 % at PCP office Regimen Basal levemir 50/80 bid Bolus humalog 30 units per meal Uses a sliding scale hbgm 3-4 x a day Usually Under 180 fbs, usuallmy under 210 Hypo none Diet Avoiding sweets B 2 toast Sn L shep pie out Sn D Vegetarian spaghetti Sn Exercise Doing PT for new legs complications Eyes prior laser therapy Feet Bilateral BKA Kidneys + renal transplant - saw transplant team in Jul autonomic: no gastroparesis bladder hypo unaware tachycardia cardiac no chest pain on exertion no shortness of breath at rest No history of stent cabg chf prevention: last eye exam: due last microalbumin :2011 last Cr:today last lipid panel:2011 regular pants presser automatic:no special shoes:no flu shot :yes pneumovax: 2012 acei yes Asa Yes statin yes Current Outpatient Prescriptions Medication Sig Dispense Refill ??? OXYGEN-AIR DELIVERY SYSTEMS (HORIZON NASAL CPAP SYSTEM MISC) Inhale into the lungs nightly. ??? albuterol (PROVENTIL) 2.5 mg /3 mL (0.083 %) Solution for Nebulization Take 2.5 mg by nebulization every 4 hours as needed for Wheezing. ??? propranolol (INDERAL LA) 160 mg Capsule,Sustained Action 24 hr Take 1 capsule by mouth 3 times daily. 270 capsule 3 ??? gabapentin (NEURONTIN) 300 mg Capsule Take 3 capsules by mouth 3 times daily. 810 capsule 3 ??? losartan (COZAAR) 25 mg Tablet Take 12.5 mg by mouth daily. ??? acetaminophen (TYLENOL) 325 mg Tablet Take 650 mg by mouth every 4 hours as needed for Pain. Reported on 08/06/2016 ??? cholecalciferol, Vitamin D3, 2,000 unit Tablet Take 2,000 Units by mouth daily. 0 ??? PROGRAF 1 mg Capsule Take 1 capsule by mouth 2 times daily. KIDNEY TRANSPLANT Z94.0. TRANSPLANT DATE - 02/29/2008 60 capsule 11 ??? CELLCEPT 250 mg Capsule Take 2 capsules by mouth 2 times daily. Kidney Transplant Z94.0. Transplant Date; 02-29-08 120 capsule 11 ??? atorvastatin (LIPITOR) 20 mg Tablet Take 20 mg by mouth daily. ??? ipratropium-albuterol (DUONEB) 0.5 mg-3 mg(2.5 mg base)/3 mL Solution for Nebulization Take 3 mLs by nebulization 2 times daily. 1 ??? STIOLTO RESPIMAT 2.5-2.5 mcg/actuation Mist Inhale 2 puffs into the lungs daily. 1 ??? Miscellaneous Medical Supply [facility] 4 Devices by [facility].(Non-Drug; Combo Route) route [...] 29 gauge x 1/2 Needle 0 ??? Insulin [place], Disposable, (BD INSULIN PEN NEEDLE UF SHORT) 31 X 5/16 Needle Form faxed for new Rx to [facility] 450 each 4 ??? fluticasone (FLONASE) 50 mcg/actuation nasal spray 2 sprays by Each Nare route as needed. 64 g 11 ??? MULTIVITS-MINERALS/FA/LYCOPENE (ONE-A-DAY MEN'S MULTIVITAMIN ORAL) Take by mouth daily. ??? aspirin 81 mg EC tablet Take 81 mg by mouth daily. ??? folic acid (FOLVITE) 1 mg tablet Take 2 mg by mouth daily. ??? montelukast (SINGULAIR) 10 mg tablet Take 10 mg by mouth daily. ??? omeprazole (PRILOSEC) 40 mg capsule Take 40 mg by mouth daily. No current facility-administered medications for this visit. BP 125/46 Pulse 66 Ht (!) 198.1 cm (6' 6) Wt (!) 149.7 kg (330 lb) BMI 38.14 kg/m2 Home BP is 150/62 Home weigh tis down 3 lbs Weight is stable (up 3) Appearance: looks well eyes: old retinopathy seen by green light ext: R stump has a callus w crack towards distal end and a 3 cm diameter shallow circular blister base on the lateral side Recent Results (from the past 24 hour(s)) Hemoglobin A1c Result Value Ref Range Hemoglobin A1C 8.6 (H) 4.3 - 5.6 % Est Avg Gluc 200 mg/dL Creatinine Result Value Ref Range Creatinine 1.83 (H) 0.80 - 1.50 mg/dL Estimated GFR 38 (L) >=60 TSH Result Value Ref Range TSH 1.93 0.27 - 4.20 mcIU/mL LDL Cholesterol, Direct Result Value Ref Range LDL Chol Direct 54 <=190 mg/dL Ref. Range 06/08/2016 10:10 08/06/2016 07:41 12/07/2016 10:34 Creatinine Latest Ref Range: 0.80 - 1.50 mg/dL 1.77 (H) 2.23 (H) 1.83 (H) Estimated GFR Latest Ref Range: >=60 39 (L) 30 (L) 38 (L) Glucose Lvl Latest Ref Range: 65 - 199 mg/dL 239 (H) Calcium Latest Ref Range: 8.5 - 10.5 mg/dL 9.5 Magnesium Latest Ref Range: 0.69 - 1.07 mmol/L 0.75 Hemoglobin A1C Latest Ref Range: 4.3 - 5.6 % 8.8 (H) 9.4 (H) 8.6 (H) 1) DM2 - Mr Torres has fixed his diabetes control with a dietary effort. He has slipped a little (his HA1c was under 8 at his PCP) but overall this indicates that we do not need ot increase his insulinbut work on lifestyle 2) CKD3 - his renal function has improved - it is possible that he lost weight or that with better glucose he is not dehydrated to account for this. 3) sleep apnea - he is not getting relief from CPAP but says he can sleep lying flat and does not complain of fatigue 4) bilateral bka - gets around reasonably well and doing PT. He gets stump blisters because he triesto be so active. 5) morbid obesity - weight appears ot be stable 6) history of retinopathy - has rescheduled since he missed the eye appt today RTC 6 mo for HA1c and cre and TSH documented in this encounter Plan of Treatment Upcoming Encounters Date Type Specialty Care Team Description 05/26/2022 Office Visit Otolaryngology Ricardo Panda PA [facility] er [place], [place] [address] (Wo rk) 06/02/2022 Infusion Hematology and Oncology 06/16/2022 Infusion Hematology and Oncology 06/21/2022 Office Visit Neurology Tyler Rojas MD [facility] Neurology [place], [place] [phone] (Wo rk) 06/30/2022 Infusion Hematology and Oncology 07/14/2022 Infusion Hematology and Oncology 07/28/2022 Infusion Hematology and Oncology 08/11/2022 Infusion Hematology and Oncology 11/04/2022 Office Visit Rheumatology Dante Freedman PA [facility] RHEUMATOLOGY [place], [place] [address] (Wo rk) documented as of this encounter Results TSH (06/14/2017 9:44 AM EST) athologist Signature TSH 2.52 0.27 - 4.20 [facility] mlU/ML [facility] Specimen Anatomical Collection Method Collection Time Receive d Time (Source) Location / / Volume Laterality Blood specimen 06/14/2017 9:44 AM 017 9:53 (specimen) EST AM EST Resulting Agency Comment Spec In Lab Donell Hernandez MD CHEMISTRY ORDERABLES Performing Organization Address City/State/[place] [address] (ABNORMAL) Creatinine (06/14/2017 9:44 AM EST) Analysis Performed At Patho logist Time Signature Creatinine 1.94 (H) 0.80 - [facility] 1.50 mg/dL [facility] Estimated GFR 35 (L) >=60 [facility] Comment: The reported eGFR should be multiplied b y 1.2 for patients. The MDRD is not an appropriate measure o f renal function for patients with body mass extremes or in patients with acute kidney failure. http://[employer]/DHnkdep http://[employer]/DHMCnkf Specimen Anatomical Collection Method Collection Time Receive d Time (Source) Location / / Volume Laterality Blood specimen 06/14/2017 9:44 AM 017 9:53 (specimen) EST AM EST Resulting Agency Comment Spec In Lab Donell Hernandez MD CHEMISTRY ORDERABLES Performing Organization Address City/State/[place] [address] (ABNORMAL) Hemoglobin A1c (06/14/2017 9:44 AM EST) Analysis Performed At Patho logist Time Signature Hemoglobin A1C 8.2 (H) 4.3 - 5.6 [facility] Comment: Reference Range: 4.3 - 5.6% 5.7 - 6.4% - Increased Risk of Developin g Diabetes Mellitus >=6.5% - Consistent with diagnosis of Di abetes Mellitus In the absence of hyperglycemia (i.e. pl asma glucose > 200 mg/dL) or classic symptoms of hyperglycemia a repeat measu rement of HbA1c should be performed on a separate sample to confirm the diagnos is. Diagnosis and Classification of Diabetes Mellitus, Diabetes Care 2013; 36: Suppl. 1, S67-91 Est Avg Gluc 189 mg/dL [facility] Comment: eAG equivalents for HbA1c percentages: HbA1c(%) ?eAG(mg/dL) 6.0 ?126 6.5 ?140 7.0 ?154 7.5 ?169 8.0 ?183 8.5 ?197 9.0 ?212 9.5 ?226 10.0 ? 240 Limitations: The eAG calculation has not been validated on women, individuals below 18 years old and above 70 years old, and individuals with hemoglobinopathies. Additional resources are available on [facility] website. Scooby MALDONADO, Nba J, Sydnee R, et al. ??Tr anslating the A1C assay into estimated average glucose values. ??Diabetes Care 2008:31(8):4271-6690. Specimen Anatomical Collection Method Collection Time Receive d Time (Source) Location / / Volume Laterality Blood specimen 06/14/2017 9:44 AM 017 9:53 (specimen) EST AM EST Resulting Agency Comment Spec In Lab Donell Hernandez MD CHEMISTRY ORDERABLES Performing Organization Address City/State/[place] [address] documented in this encounter Visit Diagnoses Diagnosis Uncontrolled type 2 diabetes mellitus wi complication, with long-term current use of insulin S/P bilateral BKA (below knee amputation ) Lower limb amputation, below knee CKD (chronic kidney disease) stage 3, GF R 30-59 ml/min Chronic kidney disease, Stage III (moder ate) documented in this encounter Care Teams Grain Operator Relationship Specialty Start Date End Date Violetta Sanford MD PCP - General 04/02/14 [address] [place] [address] documented as of this encounter
--- OUTSIDE RECORDS SUMMARY | 2022-05-24 10:53 | XMS_ITS | Encounter Summary ---
:1955 Author Organization [facility] [place] [address] Care Team Providers Name Role Phone Violetta Sanford MD Primary Care Provider Encounter Details Date Type Department Care Team Description 01/06/2017 Refill Solid Organ Transplant Lynda Pyle, [place] [address] Social History Tobacco Use Types Packs/Day [...] Otolaryngology Ricardo Panda PA [facility] [place] [address] [place] [address] (Wo rk) 06/02/2022 Infusion Hematology and Oncology 06/16/2022 Infusion Hematology and Oncology 06/21/2022 Office Visit Neurology Tyler Rojas MD [facility] Dr [place] [address] (Wo rk) 06/30/2022 Infusion Hematology and Oncology 07/14/2022 Infusion Hematology and Oncology 07/28/2022 Infusion Hematology and Oncology 08/11/2022 Infusion Hematology and Oncology 11/04/2022 Office Visit Rheumatology Dante Freedman PA [facility] RHEUMATOLOGY [place], [place] [address] (Wo rk) documented as of this encounter Visit Diagnoses Diagnosis Transplanted kidney Kidney replaced by transplant documented in this encounter Care Teams Aquatic Centre Manager Relationship Specialty Start Date End Date Violetta Sanford MD PCP - General 04/02/14 [address] [place] [address] documented as of this encounter
--- OUTSIDE RECORDS SUMMARY | 2022-05-24 10:53 | XMS_ITS | Encounter Summary ---
:1955 Author Organization [facility] [place] [address] Care Team Providers Name Role Phone Violetta Sanford MD Primary Care Provider Encounter Details Date Type Department Care Team Description 02/03/2017 Refill Solid Organ Transplant Lynda Pyle, [place] [address] Social History Tobacco Use Types Packs/Day [...] Telephone Encounter - Nicky Pyle CMA - 02/03/2017 3:18 PM EDT Wants all meds sent to [facility] pharmacy Has one week of meds I wrote new scripts for meds related to transplant and recommended patient contact his endodontologist to have his DM meds renewed. Pt v/u. Telephone Encounter - Nicky Pyle CMA - 02/03/2017 3:17 PM EDT ----- Message from Abiola Kelly sent at 02/03/2017 10:51 AM EDT ----- Regarding: prescriptions Contact: Leroy has lost his V Pharm Medicaid through the state [place]. He was told to call Awa about gettinghis meds through [facility]. He said it as getting them paid through Pharmacy. documented in this encounter Plan of Treatment Upcoming Encounters Date Type Specialty Care Team Description 05/26/2022 Office Visit Otolaryngology Ricardo Panda PA [facility] [place] [address] (Wo rk) 06/02/2022 Infusion Hematology and Oncology 06/16/2022 Infusion Hematology and Oncology 06/21/2022 Office Visit Neurology Tyler Rojas MD [facility] Neurology [place], [place] [phone] (Wo rk) 06/30/2022 Infusion Hematology and Oncology 07/14/2022 Infusion Hematology and Oncology 07/28/2022 Infusion Hematology and Oncology 08/11/2022 Infusion Hematology and Oncology 11/04/2022 Office Visit Rheumatology Dante Freedman PA [facility] RHEUMATOLOGY [place], [place] [address] (Wo rk) documented as of this encounter Visit Diagnoses Diagnosis Transplanted kidney Kidney replaced by transplant documented in this encounter Care Teams Bow Making Machine Operator Relationship Specialty Start Date End Date Violetta Sanford MD PCP - General 04/02/14 [address] [place] [address] documented as of this encounter
--- OUTSIDE RECORDS SUMMARY | 2022-05-24 10:53 | XMS_ITS | Encounter Summary ---
:1955 Author Organization [facility] [place] [address] Care Team Providers Name Role Phone Violetta Sanford MD Primary Care Provider Encounter Details Date Type Department Care Team Description 06/07/2017 Hospital [place] [address] Social History Tobacco Use Types Packs/Day [...] Sig Dispensed Refills Start Date End Date liraglutide (VICTOZA Inject 1.2 mg 6 mL [...] Devices by 4 each 0 12/02/[address] [facility].(Non-Drug; Combo MiscIndications: S/P Route) route daily. 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 propranolol (INDERAL Take 1 capsule by 270 capsule 3 017 10/20/2017 LA) 160 mg mouth 3 times daily. Capsule,Sustained Action 24 hr GLUCAGON HCL Inject 1 mL into the 1 each 3 03/09/2017 (GLUCAGON, HUMAN muscle as needed. RECOMBINANT,) 1 mg Recon Soln mycophenolate Take 2 capsules by 120 capsule 11 02/11/2017 (CELLCEPT) 250 mg mouth 2 times daily. CapsuleIndications: Kidney Transplant Transplanted kidney Z94.0. Transplant Date; 02-29-08 PROGRAF 1 mg Take 1 capsule by 60 capsule 11 02/03/201710/19 CapsuleIndications: mouth 2 times daily. Transplanted kidney KIDNEY TRANSPLANT Z94.0. TRANSPLANT DATE - 02/29/2008 losartan (COZAAR) 25 Take 0.5 tablets by 45 tablet 3 201606/26/2019 mg Tablet mouth daily. LEVEMIR FLEXTOUCH Inject 130 Units 45 mL 11 01/24/2017 0 10/31/2017 Insulin Pen subcutaneously daily. Inject 60 units in the morning, and 70 units at night. ICD 10 Code: E11.40 OXYGEN-AIR DELIVERY Inhale into the lungs 0 03/15/2018 SYSTEMS (HORIZON nightly. NASAL CPAP SYSTEM [facility]) albuterol (PROVENTIL) Take 2.5 mg by 0 08/29/2019 2.5 mg /3 mL (0.083 nebulization every 4 %) Solution for hours as needed for Nebulization Wheezing. gabapentin Take 3 capsules by 810 capsule 3 09/27/201610/20 (NEURONTIN) 300 mg mouth 3 times daily. Capsule cholecalciferol, Take 2,000 Units by 0 05/31/2016 12/13/2017 Vitamin D3, 2,000 mouth daily. unit Tablet ipratropium-albuterol Take 3 mLs by 1 12/01/2015 [...] Office Visit Otolaryngology Ricardo Panda PA [facility] er [place] [address] (Wo rk) 06/02/2022 Infusion Hematology and Oncology 06/16/2022 Infusion Hematology and Oncology 06/21/2022 Office Visit Neurology Tyler Rojas MD [facility] er [address] [place] [phone] (Wo rk) 06/30/2022 Infusion Hematology and Oncology 07/14/2022 Infusion Hematology and Oncology 07/28/2022 Infusion Hematology and Oncology 08/11/2022 Infusion Hematology and Oncology 11/04/2022 Office Visit Rheumatology Dante Freedman PA [facility] RHEUMATOLOGY [place], [place] [address] (Wo rk) documented as of this encounter Procedures Procedure Name Priority Date/Time Associated Diagnosis Comme nts TACROLIMUS LEVEL Routine 06/07/2017 11:00 AM Resu lts for this EST procedure are i n the results section. documented in this encounter Results Tacrolimus level (06/07/2017 11:00 AM EST) athologist Signature Tacrolimus Lvl 5.4 ng/mL [facility] Comment: Trough therapeutic: ??5-15 ng/mL Performed by ultra-performance liquid ch romatography tandem mass spectrometry (UPLCMS/MS). This test was developed and its performa nce characteristics determined by [facility]. It has not been cleared or approved by the FDA. The laboratory is regulated under CLIA a s qualified to perform high-complexity testing. This test is used for clinical purposes. It should not be regarded as investigational or for research. Specimen Anatomical Collection Method Collection Time Receive d Time (Source) Location / / Volume Laterality Blood specimen Venous Draw / 06/07/2017 11:00 06/08/20 17 7:44 (specimen) Unknown AM EST AM EST Resulting Agency Comment Spec In Lab Alejo Garnett MD CHEMISTRY ORDERABLES Performing Organization Address City/State/[place] [address] documented in this encounter Visit Diagnoses Not on filedocumented in this encounter Care Teams Veneer Lathe Operator Relationship Specialty Start Date End Date Violetta Sanford MD PCP - General 04/02/14 [address] [place] [address] documented as of this encounter
--- OUTSIDE RECORDS SUMMARY | 2022-05-24 10:53 | XMS_ITS | Encounter Summary ---
:1955 Author Organization [facility] Address [address] [place] [address] Care Team Providers Name Role Phone Violetta Sanford MD Primary Care Provider Reason for Visit Reason Comments Kidney Transplant Follow-up Immunotherapy Encounter Details Date Type Department Care Team Description 03/15/2018 Office Visit Solid Organ Alejo Garnett Kidney re placed by transplant; Transplant at [facility] MD Thang History of renal transplant; [facility] Imm unosuppression; Drive Aftercare following organ transplant; [place], [place] TRANSPLANT SURGE RY Persistent proteinuria [id number] [place] [address] [phone] Social History Tobacco Use Types Packs/Day Years [...] Sign Reading Time Taken Comments Blood Pressure 136/60 03/15/2018 11:02 AM EDT Pulse 80 03/15/2018 11:02 AM EDT Temperature 36.7 ??C (98.1 ??F) 03/15/2018 11:02 AM EDT Respiratory Rate - - Oxygen Saturation 97% 03/15/2018 11:02 AM EDT Inhaled Oxygen Concentration - - Weight 139.3 kg (307 lb) 03/15/2018 11:02 AM EDT Height - - Body Mass Index 37.37 12/13/2017 11:13 AM EDT documented in this encounter Progress Notes Nicky Pyle CMA - 03/15/2018 10:40 AM EDT Confirmed patient's last name and Reviewed tobacco use, all allergies and meds, dose and frequency. No additional OTC meds, nutritional or herbal supplements. Reviewed education tab. Reviewed immunizations C/o difficulty hearing from left ear x 2 weeks, home tx didn't help, hearing aid not working Alejo Garnett MD - 03/15/2018 10:40 AM EDT TRANSPLANT NEPHROLOGY FOLLOW-UP NOTE PATIENT: Leroy Torres : 1955 Transplant ID: Date:?? 02/28/2017 Patient:?? Leroy Torres Transplant Date: 02/29/08?? Organ(s) Kidney?? Jamul organ diagnosis: Diabetes Mellitus - Type II?? From Transplant: 10 years ? ID: This is a 62yo white male with a history of ESRD secondary to diabetic nephropathy s/p DD renal transplant on 02/29/08 who returns for his 10th anniversary. Interim Hx: Doing well since his last visit on 02/28/17. Continues to struggle with diabetes control, recent A1C 8.8%. Followed by every 6 months. Remains intolerant to CPAP. Denies any urinary symptoms. accompanies him today. Healthcare maintenance for a transplant recipient: ? Immunizations (no live virus or modified bacterial vaccines) Prevnar 13 once in a lifetime Pneumovax 23 every 5 years Tdap every 10 years Annual flu shot -> due in April Annual PCP exam - up to date Annual LITZY and PSA for males over 40 - due Annual pap gyne for females (pap if cervix present; visual inspection if no cervix present) Annual mammogram for females over 40, younger than 40 if family hx positive Every 5 year colonoscopy after age 50 - Normal in 2017 in [facility] Monthly self skin exam, daily spf 50 sunblock, annual derm consult if hx of skin cancer - up to date Annual eye exam - has an appointment tomorrow Semi annual dental evaluation with prophylactic antibiotics - Patient has no teeth left (wears dentures). No gum disease. Cardiac stress test after age 50, every 3 years for diabetics, every 5 for non- diabetics - Due this year. Last test done 03/21/2015 which was normal. Jamul kidney ultrasound looking for renal cell CA, every 5 years post transplant - Due this year. Bone density assessment every 9-12 years post transplant Annual fasting lipid profile Annual PTH-Vit D3 assessment until normalized Annual 24 hour timed urine for creatinine, protein, calcium, phosphate, magnesium Patient Active Problem List Diagnosis ??? Persistent proteinuria ??? Encounter for long-term [...] of renal transplant ??? Amputee, below knee Overview Note: Right BKA ??? Delayed wound healing ??? Sensorineural hearing loss, bilateral Overview Note: ??? Tremor, essential Overview Note: ??? Injury, other and unspecified, unspecified site Overview Note: Display name was automatically updated by a utility run on 10/27/2011 ??? Diabetes mellitus with neuropathy Overview Note: ??? Charcot's arthropathy, diabetic, R Overview Note: ??? Amputee, below knee, L Overview Note: ??? 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ifestations Outpatient medications: Current Outpatient Prescriptions on File Prior to Visit Medication Sig Dispense Refill ??? LEVEMIR FLEXTOUCH U-100 INSULN Insulin Pen Inject 50-80 Units subcutaneously 2 times daily. ICD 10 Code: E11.40 45 mL 11 ??? mycophenolate (CELLCEPT) 250 mg Capsule Take 2 capsules by mouth 2 times daily. Kidney Transplant Z94.0. Transplant Date; 02-29-08 120 capsule 11 ??? PROGRAF 1 mg Capsule Take 1 capsule by mouth 2 times daily. KIDNEY TRANSPLANT Z94.0. TRANSPLANT DATE - 02/29/2008 60 capsule 11 ??? cholecalciferol, Vitamin D3, 2,000 unit Tablet Take 1 tablet by mouth daily. 90 tablet 3 ??? gabapentin (NEURONTIN) 300 mg Capsule Take 3 capsules by mouth 3 times daily. 810 capsule 1 ??? propranolol (INDERAL LA) 160 mg Capsule,Sustained Action 24 hr Take 1 capsule by mouth 3 times daily. 270 capsule 1 ??? liraglutide (VICTOZA 3-FAZAL) 0.6 mg/0.1 mL (18 mg/3 mL) Pen Injector Inject 1.2 mg subcutaneouslydaily. 6 mL 11 ??? insulin needles, disposable, 29 gauge x 1/2 Needle 1 Device by [facility] [place] [place].(Non- Drug; Combo Route) route 3 times [...] lungs daily. 1 ??? Miscellaneous Medical Supply [facility] [place] [place] 4 Devices by [facility] [place] [place].(Non-Drug; Combo Route) route daily. Rubber sheath [...] facility-administered medications on file prior to visit. ROS: Constitutional - No fevers, chills, weight [...] gross hematuria. Neuro - No focal weakness. PHYSICAL EXAM: Last value Range last 24 hrs Temperature Temp: 36.7 ??C (98.1 ??F) Temp: [36.7 ??C (98.1 ??F)] Heart Rate Heart Rate: 80 Heart Rate: [80] Blood Pressure BP: 136/60 BP: (136)/(60) Respiratory Rate Resp: -- SpO2 SpO2: 97 % SpO2: [97 %] Appearance - Awake and alert. NAD. Morbidly [...] - Normal speech. Left hand resting tremor. Labs: CBC: Recent Labs 03/15/18 0940 WBC 7.1 HGB 11.9* PLATELET 170 Chemistry: Recent Labs 03/15/18 0940 06/14/17 0944 NA 139 -- K 4.9 -- CL 107 -- CO2 21* -- BUN 30* -- CREATININE 1.90* 1.94* Recent Labs 03/15/18 0940 CALCIUM 9.2 MAGNESIUM 0.59* PHOS 3.4 LFT's: Recent Labs 03/15/18 0940 BILITOT 0.5 ALBUMIN 3.5 ALKPHOS 153* ALT 25 AST 22 Component Value Date/Time SPGRAVITYUA 1.015 03/15/2018 1003 PHUADIP 5.0 03/15/2018 1003 PROTEINUADIP 30 (A) 03/15/2018 1003 GLUCOSEU 150 (A) 03/15/2018 1003 KETONESUA Negative 03/15/2018 1003 UROBILIUADIP Normal 03/15/2018 1003 BLOODUADIP Negative 03/15/2018 1003 NITRATEUA Negative 03/15/2018 1003 LEUKOESTERUA Negative 03/15/2018 1003 WBCUA 2 03/15/2018 1003 BILIRUBINUA Negative 03/15/2018 1003 Ref. Range 03/15/2018 09:45 03/15/2018 09:45 03/15/2018 10:03 03/15/2018 10:03 03/15/2018 10:03 Prot/Cre Ratio Latest Units: ratio 0.5 Ca/Cre Ratio Latest Units: ratio 0.03 U Calcium Latest Units: mg/dL 2.6 U Protein Ran Latest Ref Range: 0 - 12 mg/dL 37 (H) U Creatinine Latest Units: mg/dL 78 78 78 U Phosphorus Latest Units: mg/dL 54.8 Urine TV (ml) Latest Units: mL 2500 Hours Collected Latest Units: hour(s) 24 U24 Ca Calc Latest Ref Range: 50.0 - 300.0 mg/24hr 30.0 (L) U24 Ca Conc Latest Units: mg/dL 1.2 Creat Clearance Latest Ref Range: 90 - 139 mL/min 80 (L) U24 Creat Calc Latest Ref Range: 0.80 - 1.90 gm/24hr 2.20 (H) 2.20 (H) U24 Creat Conc Latest Units: mg/dL 88 88 U24 Phos Calc Latest Ref Range: 0.4 - 1.3 gm/24hr 1.3 U24 Phos Conc Latest Units: mg/dL 52.8 U24 Prot Calc Latest Ref Range: <=0.15 gm/24hr 0.60 (H) U24 Prot Conc Latest Ref Range: <=80 mg/dL 24 U24 Uric Calc Latest Ref Range: 0.25 - 0.80 gm/24hr 0.46 U24 Uric Conc Latest Units: mg/dL 18.2 Ref. Range 03/15/2018 09:40 Tacrolimus Lvl Latest Units: ng/mL 7.0 IMPRESSION/ RECOMMENDATIONS: 1. Graft function - Stable (great function considering DD kidney 10 years out). Function has deteriorated over the years likely due to poor diabetic control and dehydration. Baseline Cr 1.5-2.0 with minimal proteinuria. Remains on Losartan. 2. Immunosuppression - Prograf level acceptable. Continue Prograf 1mg BID and Cellcept 500mg BID. 3. BMD - Labs reviewed. Ca++ and Phos WNL. Hypomagnesemia noted, likely due to Prograf. Continue to monitor. 4. Hyperlipidemia - Improving. Continue heart healthy diet. Continue Atorvastatin 20mg daily. 5. Diabetes - A1C 8.8%. Working with to improve glycemic control. Healthy diet and regular physical activity (upper extremities etc) for weight loss discussed. 6. Healthcare maintenance - See section above. RTC in 1 year with labs. o Discussion with the patient and/or family concerned the following: ? Diagnostic results or recommended studies ? Prognosis; ? Risks and benefits of management; ? Instructions for management; ? Compliance with treatment; ? Risk factor reduction; ? Patient and family education. o Total time 30 min , > 50% in direct face to face director of counseling. Nae Miller MD Nephrology Fellow I reviewed all of the above findings and assessment of Dr. Miller, edited the above note to reflect my assessment and examination and formulated the recommendations which accurately reflect mine. 30Min., >50% in direct face to face director of counseling. ? documented in this encounter Plan of Treatment Upcoming Encounters Date Type Specialty Care Team Description 05/26/2022 Office Visit Otolaryngology Ricardo Panda PA [facility] [place] [address] (Wo rk) 06/02/2022 Infusion Hematology and Oncology 06/16/2022 Infusion Hematology and Oncology 06/21/2022 Office Visit Neurology Tyler Rojas MD [facility] Neurology [place], [place] [phone] (Wo rk) 06/30/2022 Infusion Hematology and Oncology 07/14/2022 Infusion Hematology and Oncology 07/28/2022 Infusion Hematology and Oncology 08/11/2022 Infusion Hematology and Oncology 11/04/2022 Office Visit Rheumatology Dante Freedman PA [facility] RHEUMATOLOGY [place], [place] [address] (Wo rk) documented as of this encounter Results (ABNORMAL) Urinalysis with reflex Culture (03/15/2018 10:03 AM EDT) [facility] Method Time Signature Glucose UA 150 (A) Negative [facility] mg/dL [facility] Protein UA 30 (A) Negative [facility] mg/dL [facility] Bilirubin UA Negative Negative [facility] mg/dL [facility] Comment: Clinical correlation required for positi ve Urine Bilirubin results as false positive may occur with some drugs and d rug related products. If a false positive is suspected a serum total bili reyna should be considered if clinically indicated. Urobilinogen UA Normal Normal mg/dL [facility] pH UA 5.0 5.0 - 8.0 [facility] Blood UA Negative Negative mg/dL [facility] Ketones UA Negative Negative mg/dL [facility] Nitrite UA Negative Negative [facility] Leukocytes UA Negative Negative [facility] LABORATORY Appearance UA Clear Clear [facility] Spec [place] UA 1.015 1.002 - 1.030 [facility] Color UA Yellow Yellow [facility] Culture Reflexed No [facility] Specimen (Source) Anatomical Collection Method Collection Time Re ceived Time Location / / Volume Laterality Urine specimen 03/15/2018 10:03 8 obtained by clean AM EDT 10:13 AM E DT catch procedure (specimen) Resulting Agency Comment Spec In Lab Alejo Garnett MD URINE ORDERABLES Performing Organization Address City/[facility]/ZIP Code Phon e Number [address] (ABNORMAL) Protein/Creatinine Ratio, urine (03/15/2018 10:03 AM EDT) P athologist Signature U Creatinine 78 mg/dL [facility] U Protein Ran 37 (H) 0 - 12 [facility] mg/dL [facility] Prot/Cre Ratio 0.5 ratio [facility] Specimen Anatomical Collection Method Collection Time Receive d Time (Source) Location / / Volume Laterality Urine specimen 03/15/2018 10:03 8 (specimen) AM EDT 10:12 AM EDT Resulting Agency Comment Spec In Lab Alejo Garnett MD URINE ORDERABLES Performing Organization Address City/[facility]/ZIP Code Phon e Number [address] Phosphorus, urine, random (03/15/2018 10:03 AM EDT) P athologist Signature U Phosphorus 54.8 mg/dL [facility] Specimen Anatomical Collection Method Collection Time Receive d Time (Source) Location / / Volume Laterality Urine specimen 03/15/2018 10:03 8 (specimen) AM EDT 10:12 AM EDT Resulting Agency Comment Spec In Lab Alejo Garnett MD URINE ORDERABLES Performing Organization Address City/[facility]/ZIP Code Phon e Number [address] BKV Quant Urine (03/15/2018 10:03 AM EDT) Component Value Ref Test Analysis Performed At [facility] gist Range Method Time Signature BKV Urine Not Detected JERE Result [facility] BKV Urine BK Virus Urine Result Interpretation [facility] Result: BK Virus not detected HOSPITAL Specimen type: urine LABORATOR Y Assay Range: 2.80-7.80 log copies/mL (6.28x10^2 - 6.28x10^7 copies/mL) Methods: Quantitative real-time polymerase chain react ion (PCR) of viral DNA isolated from urine was performed using [employer] (formerly, [employer]) BKV analyte-specific reagents and the [employer] T[employer]ent[employer] 7 500 FAST Real-Time PCR System. In addition, the PCR product sequence is confirmed u sing physical properties (melting curve analysis). Limitations and Disclaimers: Although un likely, rare [...] and Advanc ed Technology (CGAT) Laboratory at [facility]. It has not been cleared or approved by the FDA. The laboratory is regulated under CLIA as qualified to perform high-complexity testing. This elizabeth t is used for clinical purposes. It should not be regarded as investigational or fo r research. Comment: [VERIFIED DATE]03.21.18 Verified By:Alejo Alejandro (Electronic Signature) Specimen Anatomical Collection Method Collection Time Receive d Time (Source) Location / / Volume Laterality Urine specimen 03/15/2018 10:03 8 2:23 (specimen) AM EDT PM EDT Resulting Agency Comment Spec In Lab Alejo Garnett MD MICROBIOLOGY - GENERAL ORDER STEPHANIE Performing Organization Address City/State/[place] [address] Creatinine, urine, random (03/15/2018 10:03 AM EDT) P athologist Signature U Creatinine 78 mg/dL [facility] Specimen Anatomical Collection Method Collection Time Receive d Time (Source) Location / / Volume Laterality Urine specimen 03/15/2018 10:03 8 (specimen) AM EDT 10:12 AM EDT Resulting Agency Comment Spec In Lab Alejo Garnett MD URINE ORDERABLES Performing Organization Address City/[facility]/ZIP Code Phon e Number [address] Calcium Creatinine Ratio, random urine (03/15/2018 10:03 AM EDT) P athologist Signature U Calcium 2.6 mg/dL [facility] U Creatinine 78 mg/dL [facility] Ca/Cre Ratio 0.03 ratio [facility] Specimen Anatomical Collection Method Collection Time Receive d Time (Source) Location / / Volume Laterality Urine specimen 03/15/2018 10:03 8 (specimen) AM EDT 10:12 AM EDT Resulting Agency Comment Spec In Lab Alejo Garnett MD URINE ORDERABLES Performing Organization Address City/[facility]/ZIP Code Phon e Number [address] Uric acid, urine, 24 hour (03/15/2018 9:45 AM EDT) P athologist Signature U24 Uric Conc 18.2 mg/dL [facility] U24 Uric Calc 0.46 0.25 - [facility] 0.80 [facility] Specimen Anatomical Collection Method Collection Time Receive d Time (Source) Location / / Volume Laterality Urine specimen 03/15/2018 9:45 AM 018 (specimen) EDT 10:45 AM EDT Resulting Agency Comment Spec In Lab Alejo Garnett MD URINE ORDERABLES Performing Organization Address City/[facility]/[place] [address] (ABNORMAL) Protein, urine, 24 hour (03/15/2018 9:45 AM EDT) Analysis Performed At Patho logist Time Signature U24 Prot Conc 24 <=80 mg/dL [facility] U24 Prot Calc 0.60 (H) <=0.15 [facility] gm/24hr [facility] Specimen Anatomical Collection Method Collection Time Receive d Time (Source) Location / / Volume Laterality Urine specimen 03/15/2018 9:45 AM 018 (specimen) EDT 10:45 AM EDT Resulting Agency Comment Spec In Lab Alejo Garnett MD URINE ORDERABLES Performing Organization Address City/[facility]/ZIP Code Phon e Number [address] Phosphorus, urine, 24 hour (03/15/2018 9:45 AM EDT) P athologist Signature U24 Phos Conc 52.8 mg/dL [facility] U24 Phos Calc 1.3 0.4 - 1.3 [facility] gm/24hr [facility] Specimen Anatomical Collection Method Collection Time Receive d Time (Source) Location / / Volume Laterality Urine specimen 03/15/2018 9:45 AM 018 (specimen) EDT 10:45 AM EDT Resulting Agency Comment Spec In Lab Alejo Garnett MD URINE ORDERABLES Performing Organization Address City/[facility]/[place] [address] (ABNORMAL) Creatinine, urine, 24 hour (03/15/2018 9:45 AM EDT) Analysis Performed At Patho logist Time Signature U24 Creat Conc 88 mg/dL [facility] U24 Creat Calc 2.20 (H) 0.80 - [facility] 1.90 [facility]/[address] [place] [address] LABORATORY Specimen Anatomical Collection Method Collection Time Receive d Time (Source) Location / / Volume Laterality Urine specimen 03/15/2018 9:45 AM 018 (specimen) EDT 10:45 AM EDT Resulting Agency Comment Spec In Lab Alejo Garnett MD URINE ORDERABLES Performing Organization Address City/[facility]/ZIP Code Phon e Number [address] (ABNORMAL) Creatinine Clearance, urine, 24 hour (03/15/2018 9:45 AM EDT) Analysis Performed At Patho logist Time Signature Creat 80 (L) 90 - 139 [facility] Clearance mL/min [facility] U24 Creat Conc 88 mg/dL [facility] U24 Creat Calc 2.20 (H) 0.80 - [facility] 1.90 [facility] gm/24hr [facility] Specimen Anatomical Collection Method Collection Time Receive d Time (Source) Location / / Volume Laterality Urine specimen 03/15/2018 9:45 AM 018 (specimen) EDT 10:45 AM EDT Resulting Agency Comment Spec In Lab Alejo Garnett MD URINE ORDERABLES Performing Organization Address City/[facility]/[place] [address] (ABNORMAL) Calcium, urine, 24 hour (03/15/2018 9:45 AM EDT) P athologist Signature U24 Ca Conc 1.2 mg/dL [facility] U24 Ca Calc 30.0 (L) 50.0 - [facility] 300.0 [facility] mg/24hr [facility] Comment: Reference Range: 50.0-300.0 mg/ 24 hour based on diet. Specimen Anatomical Collection Method Collection Time Receive d Time (Source) Location / / Volume Laterality Urine specimen 03/15/2018 9:45 AM 018 (specimen) EDT 10:45 AM EDT Resulting Agency Comment Spec In Lab Alejo Garnett MD URINE ORDERABLES Performing Organization Address City/[facility]/[place] [address] Gold Tube HOLD (03/15/2018 9:40 AM EDT) P athologist Signature Gold Hold Sample in [facility]. [facility] Specimen Anatomical Collection Method Collection Time Receive d Time (Source) Location / / Volume Laterality Blood specimen 03/15/2018 9:40 AM 018 9:49 (specimen) EDT AM EDT Alejo Garnett MD CHEMISTRY ORDERABLES Performing Organization Address City/State/[place] [address] Lavender Tube HOLD (03/15/2018 9:40 AM EDT) [facility] Method Time Signature Lavender Hold Sample in [facility] lab. [facility] Specimen Anatomical Collection Method Collection Time Receive d Time (Source) Location / / Volume Laterality Blood specimen 03/15/2018 9:40 AM 018 9:49 (specimen) EDT AM EDT Alejo Garnett MD HEMATOLOGY ORDERABLES Performing Organization Address City/[facility]/[place] [address] (ABNORMAL) Vitamin D, 25-Hydroxy (03/15/2018 9:40 AM EDT) athologist Signature 25-OH Vit D 24 (L) 30 - 100 [facility] Total ng/mL [facility] Comment: Deficient <10 ng/mL Insufficient 10 to 29 ng/mL Sufficient 30 to 100 ng/mL Potential Intoxication >100 ng/mL According to the [place] National Osteoporosi s Foundation, Vitamin D concentrations >30 ng/mL are sufficient to protect bone health. ??The National Kidney Foundation has similarly stated that pat ients with Vitamin D concentrations <30ng/mL should be considered to be insu fficient or deficient. http://[employer]/nkf-guidelines http://[employer]/nejm-VitD The [employer] Vitamin D Immunoassay detec ts both 25-OH Vitamin D2 and 25-OH Vitamin D3, but only a total Vitamin D c oncentration is reported. Specimen Anatomical Collection Method Collection Time Receive d Time (Source) Location / / Volume Laterality Blood specimen 03/15/2018 9:40 AM 018 (specimen) EDT 11:38 AM EDT Resulting Agency Comment Spec In Lab Alejo Garnett MD CHEMISTRY ORDERABLES Performing Organization Address City/State/[place] [address] Uric acid (03/15/2018 9:40 AM EDT) P athologist Signature Uric Acid 7.8 3.5 - 8.5 [facility] mg/dL [facility] Specimen Anatomical Collection Method Collection Time Receive d Time (Source) Location / / Volume Laterality Blood specimen 03/15/2018 9:40 AM 018 9:49 (specimen) EDT AM EDT Resulting Agency Comment Spec In Lab Alejo Garnett MD CHEMISTRY ORDERABLES Performing Organization Address City/[facility]/[place] [address] Tacrolimus level (03/15/2018 9:40 AM EDT) P athologist Signature Tacrolimus Lvl 7.0 ng/mL [facility] Comment: Trough therapeutic: ??5-15 ng/mL Performed by ultra-performance liquid ch romatography tandem mass spectrometry (UPLCMS/MS). This test was developed and its performa nce characteristics determined by [facility]. It has not been cleared or approved by the FDA. The laboratory is regulated under CLIA a s qualified to perform high-complexity testing. This test is used for clinical purposes. It should not be regarded as investigational or for research. Specimen Anatomical Collection Method Collection Time Receive d Time (Source) Location / / Volume Laterality Blood specimen 03/15/2018 9:40 AM 018 (specimen) EDT 11:37 AM EDT Resulting Agency Comment Spec In Lab Alejo Garnett MD CHEMISTRY ORDERABLES Performing Organization Address City/[facility]/[place] [address] (ABNORMAL) Reticulocyte Count (03/15/2018 9:40 AM EDT) Patholo gist Method Time Signature Retic Ct % 3.0 (H) 0.7 - 2.6 [facility] Retic Ct Abs 0.120 0.030 - [facility] CENTER 0.120 [facility] x10(6)/[facility] L LABORATORY Immature Retic% 21.8 (H) 0.0 - [facility] 15.6 % [facility] Reticulated Hgb 32.4 31.3 - [facility] 40.2 pg [facility] Specimen Anatomical Collection Method Collection Time Receive d Time (Source) Location / / Volume Laterality Blood specimen 03/15/2018 9:40 AM 018 9:49 (specimen) EDT AM EDT Resulting Agency Comment Spec In Lab Alejo Garnett MD HEMATOLOGY ORDERABLES Performing Organization Address City/State/[place] [address] (ABNORMAL) PTH (03/15/2018 9:40 AM EDT) P athologist Signature PTH 79 (H) 15 - 65 [facility] MELI pg/mL [facility] Specimen Anatomical Collection Method Collection Time Receive d Time (Source) Location / / Volume Laterality Blood specimen 03/15/2018 9:40 AM 018 9:49 (specimen) EDT AM EDT Resulting Agency Comment Spec In Lab Alejo Garnett MD CHEMISTRY ORDERABLES Performing Organization Address City/[facility]/[place]IP [place] [address] Phosphorus (03/15/2018 9:40 AM EDT) P athologist Signature Phosphorus 3.4 2.5 - 4.5 [facility] MELI mg/dL [facility] Specimen Anatomical Collection Method Collection Time Receive d Time (Source) Location / / Volume Laterality Blood specimen 03/15/2018 9:40 AM 018 9:49 (specimen) EDT AM EDT Resulting Agency Comment Spec In Lab Alejo Garnett MD CHEMISTRY ORDERABLES Performing Organization Address City/[facility]/[place] [address] (ABNORMAL) Magnesium (03/15/2018 9:40 AM EDT) P athologist Signature Magnesium 0.59 (L) 0.69 - 1.07 [facility] MELI mmol/L [facility] Specimen Anatomical Collection Method Collection Time Receive d Time (Source) Location / / Volume Laterality Blood specimen 03/15/2018 9:40 AM 018 9:49 (specimen) EDT AM EDT Resulting Agency Comment Spec In Lab Alejo Garnett MD CHEMISTRY ORDERABLES Performing Organization Address City/State/[place] [address] Lipid Panel (03/15/2018 9:40 AM EDT) P athologist Signature Chol, Total 96 mg/dL [facility] Comment: Lower Risk: <200 mg/dL Average Risk: 200-239 mg/dL Higher Risk: >rc=170 mg/dL Triglycerides 235 mg/dL [facility] Comment: Average Risk/Lower Risk: <150 mg/dL Borderline High Risk: 150-199 mg/dL High Risk: 200-499 mg/dL Very High Risk: >lu=680 mg/dL HDL 22 mg/dL [facility] Comment: Males: ?? Higher Risk: <40 mg/dL Females: ?? HIgher Risk: <50 mg/dL LDL Cholesterol 27 mg/dL [facility] Comment: Lowest Risk: <100 mg/dL Lower Risk: 100-129 mg/dL Borderline High Risk: 130-159 mg/dL High Risk: 160-189 mg/dL Very High Risk: >gm=929 mg/dL Chol/HDL Ratio 4.4 ratio [facility] Lipid Interpretation See Note [facility] Comment: Lipid management should be guided by a p atient? s ASCVD risk, goals and preferences. ACC/AHA Guidelines recommend high intens ity statin if clinical ASCVD or LDL greater than or equal to 190 mg/dL. http://[employer].Modacruz/GUB-KAW-Fijuqjeyh Adults aged 40-75 with LDL 70-189 mg/dL should have their 10 year ASCVD risk estimated with the ACC/AHA ASCVD risk es timator http://tools.acc.org/RSIRJ-Unaa-Qjprgxyo r/ Statin should be discussed if risk [...] Location / / Volume Laterality Blood specimen 03/15/2018 9:40 AM 018 9:49 (specimen) EDT AM EDT Resulting Agency Comment Spec In Lab Alejo Garnett MD CHEMISTRY ORDERABLES Performing Organization Address City/State/[place] [address] (ABNORMAL) Hemoglobin A1c (03/15/2018 9:40 AM EDT) Analysis Performed At Patho logist Time Signature Hemoglobin A1C 8.8 (H) 4.3 - 5.6 [facility] Comment: Reference Range: 4.3 [...] Mellitus, Diabetes Care 2013; 36: Suppl. 1, S67-47 Est Avg Gluc 206 mg/dL [facility] Comment: eAG equivalents for HbA1c percentages: HbA1c(%) ?eAG(mg/dL) 6.0 ?126 6.5 ?140 7.0 ?154 7.5 ?169 8.0 ?183 8.5 ?197 9.0 ?212 9.5 ?226 10.0 ? 240 Limitations: The eAG calculation has not been validated on women, individuals below 18 years old and above 70 years old, and individuals with hemoglobinopathies. Additional resources are available on [facility] ADA website. Scooby MALDONADO, Nab J, Sydnee R, et al. ??Tr anslating the A1C assay into estimated average glucose values. ??Diabetes Care 2008:31(8):6097-6780. Specimen Anatomical Collection Method Collection Time Receive d Time (Source) Location / / Volume Laterality Blood specimen 03/15/2018 9:40 AM 018 9:49 (specimen) EDT AM EDT Resulting Agency Comment Spec In Lab Alejo Garnett MD CHEMISTRY ORDERABLES Performing Organization Address City/State/[place] [address] (ABNORMAL) CMP w/fasting Glucose (03/15/2018 9:40 AM EDT) P athologist Signature Glucose 248 (H) 65 - 99 [facility] Fasting mg/dL [facility] Comment: ?Fasting* Glucose Interpretive C riteria Normal ?65-99 mg/dL Impaired Fasting glucose ?100-125 mg/dL Consistent with Diabetes Mellitus ? >or= 126 mg/dL *Fasting is defined as no caloric intake for at least 8 hours In the absence of unequivocal hypergly cemia a plasma glucose value of >or= 126 mg/dL should be repeated on a subseq u day. Diagnosis and Classification of Diabetes Mellitus, Position Statement from the [place] [employer]. ??Diabete s Care, Volume 33, Supplement 1, Jul 2009 BUN 30 (H) 10 - 20 mg/dL [facility] Creatinine 1.90 (H) 0.80 - 1.50 mg/dL [facility] Sodium 139 135 - 145 mmol/L [facility] Potassium 4.9 3.5 - 5.0 mmol/L [facility] Comment: Please note: ??Patients with WBC >100,00 0 may have falsely elevated Potassium levels. ??For accurate Potassium quantif ication in these patients send serum separator tube (gold top) for subsequent determinations. ??Contact the Clinical Chemistry Laboratory if there are any qu estions. Chloride 107 98 - 107 mmol/L [facility] CO2 21 (L) 22 - 31 mmol/L [facility] Anion Gap 11 5 - 15 mmol/L [facility] Calcium 9.2 8.5 - 10.5 mg/dL [facility] Total Protein 8.0 6.1 - 8.0 gm/dL [facility] Albumin 3.5 3.2 - 5.2 gm/dL [facility] AST 22 0 - 39 unit/L [facility] ALT 25 0 - 55 unit/L [facility] Alk Phos 153 (H) 40 - 120 unit/L [facility] Total Bilirubin 0.5 0.2 - 1.3 mg/dL [facility] Estimated GFR 36 (L) >=60 mL/min/1.73 m?? [facility] Comment: The eGFR was calculated using the CKD-EP I equation. As with all creatinine based estimates of kidney function, eGFR values calculated with the CKD-EPI equation are not accurate in patients wi th acute kidney failure, extremes of body mass or the acutely ill. http://[employer]/[facility] OKLAHOMA CITYnkf eGFR 42 (L) >=60 mL/min/1.73 m?? [facility] Comment: The eGFR was calculated using the CKD-EP I equation. As with all creatinine based estimates of kidney function, eGFR values calculated with the CKD-EPI equation are not accurate in patients wi th acute kidney failure, extremes of body mass or the acutely ill. http://[employer]/[facility] OKLA[facility] CITYnkf Specimen Anatomical Collection Method Collection Time Receive d Time (Source) Location / / Volume Laterality Blood specimen 03/15/2018 9:40 AM 018 9:49 (specimen) EDT AM EDT Resulting Agency Comment Spec In Lab Alejo Garnett MD CHEMISTRY ORDERABLES Performing Organization Address City/State/[place] [address] 1,25-dihydroxycholecalciferol (03/15/2018 9:40 AM EDT) P athologist Signature Vit D 18 - 64 JERE GARRISON pg/mL [facility] Comment: ADDITIONAL INFORMATIO N This test was developed and its performa nce characteristics determined by [facility] in a manner co nsistent with CLIA requirements. This test has not been carlos ared or approved by the U.S. Food and Drug Administration. Test Performed by: [facility] [address] [place] [id number] 90 Specimen Anatomical Collection Method Collection Time Receive d Time (Source) Location / / Volume Laterality Blood specimen 03/15/2018 9:40 AM 018 (specimen) EDT 11:16 AM EDT Resulting Agency Comment Spec In Lab Alejo Garnett MD CHEMISTRY ORDERABLES Performing Organization Address City/State/[place] [address] documented in this encounter Visit Diagnoses Diagnosis Kidney replaced by transplant History of renal transplant Kidney replaced by transplant Immunosuppression Unspecified disorder of immune mechanism Aftercare following organ transplant Persistent proteinuria Proteinuria documented in this encounter Care Teams Chiropractor Assistant Relationship Specialty Start Date End Date Violetta Sanford MD PCP - General 04/02/14 [address] [place] [address] documented as of this encounter
--- OUTSIDE RECORDS SUMMARY | 2022-05-24 10:53 | XMS_ITS | Encounter Summary ---
:1955 Author Organization [facility] [place] [address] Care Team Providers Name Role Phone Violetta Sanford MD Primary Care Provider Reason for Visit Reason Onset Date Comments Medication Refill 01/11/2018 Encounter Details Date Type Department Care Team Description 01/11/2018 Refill Solid Organ Transplant Lynda Pyle, [place] [address] Social History Tobacco Use Types Packs/Day [...] Telephone Encounter - Nicky Pyle CMA - 01/11/2018 1:53 PM EDT Patient left message on refill request line for CellCept 500 mg BID and Prograf 1 mg BID to be called into the [facility] in [facility]. documented in this encounter Plan of Treatment Upcoming Encounters Date Type Specialty Care Team Description 05/26/2022 Office Visit Otolaryngology Ricardo Panda PA [facility] er [place], [place] [address] (Wo rk) 06/02/2022 Infusion Hematology and Oncology 06/16/2022 Infusion Hematology and Oncology 06/21/2022 Office Visit Neurology Tyler Rojas MD [facility] Neurology [place], [place] [phone] (Wo rk) 06/30/2022 Infusion Hematology and Oncology 07/14/2022 Infusion Hematology and Oncology 07/28/2022 Infusion Hematology and Oncology 08/11/2022 Infusion Hematology and Oncology 11/04/2022 Office Visit Rheumatology Dante Freedman PA [facility] RHEUMATOLOGY [place], [place] [address] (Wo rk) documented as of this encounter Visit Diagnoses Diagnosis Transplanted kidney Kidney replaced by transplant documented in this encounter Care Teams Low Raw Sugar Cutter Relationship Specialty Start Date End Date Violetta Sanford MD PCP - General 04/02/14 [facility] [address] [place] [address] documented as of this encounter
--- OUTSIDE RECORDS SUMMARY | 2022-05-24 10:53 | XMS_ITS | Encounter Summary ---
:1955 Author Organization [facility] [place] [address] Care Team Providers Name Role Phone Violetta Sanford MD Primary Care Provider Reason for Visit Reason Onset Date Comments Other 04/05/2017 Encounter Details Date Type Department Care Team Description 04/05/2017 Telephone Neurology at [facility] Shivam Rojas MD [facility] [place] [address] Neurology [phone] [place], [place] [phone] (Wo rk) Social History [...] this encounter Miscellaneous Notes Telephone Encounter - Margaret Renteria RN - 04/05/2017 10:51 AM EDT Last appointment 03-30-2017 Next appointment 03-13-18 Caller: Patient Reason for call: Patient taking propanolol 160 mg three times a day. Telephone Encounter - Margaret Haywood - 04/05/2017 9:11 AM EDT Caller: Isaias Best time to reach caller: anytime Before 2:30pm - Informed caller that nurse will call back by the end of the day Best number to reach caller: [phone] Reason for call: Pateint called to report that he is taking propranolol three times a day. The doctor had asked for confirmation on how he is taking it. documented in this encounter Plan of Treatment Upcoming Encounters Date Type Specialty Care Team Description 05/26/2022 Office Visit Otolaryngology Ricardo Panda PA [facility] Dr [place], [place] [address] (Wo rk) 06/02/2022 Infusion Hematology and Oncology 06/16/2022 Infusion Hematology and Oncology 06/21/2022 Office Visit Neurology Tyler Rojas MD [facility] Neurology [place], [place] [phone] (Wo rk) 06/30/2022 Infusion Hematology and Oncology 07/14/2022 Infusion Hematology and Oncology 07/28/2022 Infusion Hematology and Oncology 08/11/2022 Infusion Hematology and Oncology 11/04/2022 Office Visit Rheumatology Dante Freedman PA [facility] RHEUMATOLOGY [place], [place] [address] (Wo rk) documented as of this encounter Visit Diagnoses Not on filedocumented in this encounter Care Teams R&D Lab Technician Relationship Specialty Start Date End Date Violetta Sanford MD PCP - General 04/02/14 [address] [place] [address] documented as of this encounter
--- OUTSIDE RECORDS SUMMARY | 2022-05-24 10:53 | XMS_ITS | Encounter Summary ---
:1955 Author Organization [facility] [place] [address] Care Team Providers Name Role Phone Violetta Sanford MD Primary Care Provider Encounter Details Date Type Department Care Team Description 08/18/2017 Orders Only Solid [place] [address] Social History Tobacco Use Types Packs/Day [...] as of this encounter Progress Notes Nicky Pyle CMA - 08/18/2017 10:02 AM EST Standing orders faxed to [facility] at [phone]. documented in this encounter Plan of Treatment Upcoming Encounters Date Type Specialty Care Team Description 05/26/2022 Office Visit Otolaryngology Ricardo Panda, PA [facility] Dr [address] [place] [address] (Wo rk) 06/02/2022 Infusion Hematology and Oncology 06/16/2022 Infusion Hematology and Oncology 06/21/2022 Office Visit Neurology Tyler Rojas MD [facility] er Neurology [place], [place] [phone] (Wo rk) 06/30/2022 Infusion Hematology and Oncology 07/14/2022 Infusion Hematology and Oncology 07/28/2022 Infusion Hematology and Oncology 08/11/2022 Infusion Hematology and Oncology 11/04/2022 Office Visit Rheumatology Dante Freedman PA [facility] RHEUMATOLOGY [place], [place] [address] (Wo rk) documented as of this encounter Visit Diagnoses Not on filedocumented in this encounter Care Teams Wall And Floor Tiler Relationship Specialty Start Date End Date Violetta Sanford MD PCP - General 04/02/14 [address] [place] [address] documented as of this encounter
--- OUTSIDE RECORDS SUMMARY | 2022-05-24 10:53 | XMS_ITS | Encounter Summary ---
:1955 Author Organization [facility] [place] [address] Care Team Providers Name Role Phone Violetta Sanford MD Primary Care Provider Encounter Details Date Type Department Care Team Description 04/21/2017 [place] [address] Social History Tobacco Use Types Packs/Day [...] 03/15/2018 SYSTEMS ([facility]IZON nightly. NASAL CPAP SYSTEM [facility]) albuterol (PROVENTIL) Take 2.5 mg by 0 [...] 05/26/2022 Office Visit Otolaryngology Ricardo Panda PA [facility] er [place] [address] (Wo rk) 06/02/2022 Infusion Hematology and Oncology 06/16/2022 Infusion Hematology and Oncology 06/21/2022 Office Visit Neurology Tyler Rojas MD [facility] er Dr [place]i [place], [place] [phone] (Wo rk) 06/30/2022 Infusion Hematology and Oncology 07/14/2022 Infusion Hematology and Oncology 07/28/2022 Infusion Hematology and Oncology 08/11/2022 Infusion Hematology and Oncology 11/04/2022 Office Visit Rheumatology Dante Freedman PA [facility] RHEUMATOLOGY [place], [place] [address] (Wo rk) documented as of this encounter Procedures Procedure Name Priority Date/Time Associated Diagnosis Comme nts TACROLIMUS LEVEL Routine 04/21/2017 11:00 AM Resu lts for this EDT procedure are i n the results section. documented in this encounter Results Tacrolimus level (04/21/2017 11:00 AM EDT) athologist Signature Tacrolimus Lvl 3.9 ng/mL [facility] Comment: Trough therapeutic: ??5-15 ng/mL Performed by ultra-performance liquid ch romatography tandem mass spectrometry (UPLCMS/MS). This test was developed and its performa nce characteristics determined by [facility]. It has not been cleared or approved by the FDA. The laboratory is regulated under CLIA a s qualified to perform high-complexity testing. This test is used for clinical purposes. It should not be regarded as investigational or for research. Specimen Anatomical Collection Method Collection Time Receive d Time (Source) Location / / Volume Laterality Blood specimen Venous Draw / 04/21/2017 11:00 04/22/20 17 7:22 (specimen) Unknown AM EDT AM EDT Resulting Agency Comment Spec In Lab Alejo Garnett MD CHEMISTRY ORDERABLES Performing Organization Address City/State/Z[place] [address] documented in this encounter Visit Diagnoses Not on filedocumented in this encounter Care Teams Geospatial Specialist Relationship Specialty Start Date End Date Violetta Sanford MD PCP - General 04/02/14 [address] [place] [address] documented as of this encounter
--- OUTSIDE RECORDS SUMMARY | 2022-05-24 10:53 | XMS_ITS | Encounter Summary ---
:1955 Author Organization [facility] [place] [address] Care Team Providers Name Role Phone Violetta Sanford MD Primary Care Provider Reason for Visit Reason Onset Date Comments Medication Refill 10/19/2017 Encounter Details Date Type Department Care Team Description 10/19/2017 Refill Solid Organ Transplant Lynda Pyle, [place] [address] Social History Tobacco Use Types Packs/Day [...] PA [facility] [address] [place] [address] (Wo rk) 06/02/2022 Infusion Hematology and Oncology 06/16/2022 Infusion Hematology and Oncology 06/21/2022 Office Visit Neurology Tyler Rojas MD [facility] Dr [address] [place] [phone] (Wo rk) 06/30/2022 Infusion Hematology and Oncology 07/14/2022 Infusion Hematology and Oncology 07/28/2022 Infusion Hematology and Oncology 08/11/2022 Infusion Hematology and Oncology 11/04/2022 Office Visit Rheumatology Dante Freedman PA [facility] RHEUMATOLOGY [place], [place] [address] (Wo rk) documented as of this encounter Visit Diagnoses Diagnosis Transplanted kidney Kidney replaced by transplant documented in this encounter Care Teams Drilling Engineering Manager Relationship Specialty Start Date End Date Violetta Sanford MD PCP - General 04/02/14 [address] [place] [address] documented as of this encounter
--- OUTSIDE RECORDS SUMMARY | 2022-05-24 10:53 | XMS_ITS | Encounter Summary ---
:1955 Author Organization [facility] [place] [address] Care Team Providers Name Role Phone Violetta Sanford MD Primary Care Provider Reason for Visit Reason Onset Date Comments Medication Refill 10/31/2017 Encounter Details Date Type Department Care Team Description 10/31/2017 Refill Endocrinology at [facility] Donell Hernandez MD [facility] [place] [address] ENDOCRINOLOGY DEPT. [phone] [place], [place] [address] (Wo rk) Social History Tobacco [...] Panda PA [facility] [address] [place], [place] [address] (Wo rk) 06/02/2022 Infusion Hematology and Oncology 06/16/2022 Infusion Hematology and Oncology 06/21/2022 Office Visit Neurology Tyler Rojas MD [facility] er Neurology [place], [place] [phone] (Wo rk) 06/30/2022 Infusion Hematology and Oncology 07/14/2022 Infusion Hematology and Oncology 07/28/2022 Infusion Hematology and Oncology 08/11/2022 Infusion Hematology and Oncology 11/04/2022 Office Visit Rheumatology Dante Freedman PA [facility] RHEUMATOLOGY [place], [place] [address] (Wo rk) documented as of this encounter Visit Diagnoses Not on filedocumented in this encounter Care Teams Lieutenant Governor Relationship Specialty Start Date End Date Violetta Sanford MD PCP - General 04/02/14 [address] [place] [address] documented as of this encounter
--- OUTSIDE RECORDS SUMMARY | 2022-05-24 10:53 | XMS_ITS | Encounter Summary ---
:1955 Author Organization [facility] [place] [address] Care Team Providers Name Role Phone Violetta Sanford MD Primary Care Provider Encounter Details Date Type Department Care Team Description 02/11/2017 Telephone Solid Organ [place]plant [place] [address] Social History Tobacco Use Types Packs/Day Years [...] Telephone Encounter - Nicky Pyle CMA - 02/11/2017 3:39 PM EDT Patient called wanting to know if it is ok to take generic mycophenolate. This ticket writer assured patient that mycophenolate is safe to take. Patient v/u documented in this encounter Plan of Treatment Upcoming Encounters Date Type Specialty Care Team Description 05/26/2022 Office Visit Otolaryngology Ricardo Panda PA [facility] [place], [place] [address] (Wo rk) 06/02/2022 Infusion Hematology and Oncology 06/16/2022 Infusion Hematology and Oncology 06/21/2022 Office Visit Neurology Tyler oRjas MD [facility] Neurology [place], [place] [phone] (Wo rk) 06/30/2022 Infusion Hematology and Oncology 07/14/2022 Infusion Hematology and Oncology 07/28/2022 Infusion Hematology and Oncology 08/11/2022 Infusion Hematology and Oncology 11/04/2022 Office Visit Rheumatology Dante Freedman PA [facility] RHEUMATOLOGY [place], [place] [address] (Wo rk) documented as of this encounter Visit Diagnoses Not on filedocumented in this encounter Care Teams Darkroom Technician Relationship Specialty Start Date End Date Violetta Sanford MD PCP - General 04/02/14 [address] [place] [address] documented as of this encounter
--- OUTSIDE RECORDS SUMMARY | 2022-05-24 10:53 | XMS_ITS | Encounter Summary ---
:1955 Author Organization [facility] [place] [address] Care Team Providers Name Role Phone Violetta Sanford MD Primary Care Provider Encounter Details Date Type Department Care Team Description 06/14/2017 Laboratory Appointment Lab 3L Sylvia you type 2 diabetes mellitus with complication, with long-term current use of insulin; [facility] Type 2 di abetes mellitus with complication, with long-term [place] [address] Social History Tobacco Use Types Packs/Day Years [...] Ricardo Panda PA [facility] [address] [place], [place] [address] (Wo rk) 06/02/2022 Infusion Hematology and Oncology 06/16/2022 Infusion Hematology and Oncology 06/21/2022 Office Visit Neurology Tyler Rojas MD [facility] Neurology [place], [place] [phone] (Wo rk) 06/30/2022 Infusion Hematology and Oncology 07/14/2022 Infusion Hematology and Oncology 07/28/2022 Infusion Hematology and Oncology 08/11/2022 Infusion Hematology and Oncology 11/04/2022 Office Visit Rheumatology Dante Freedman PA [facility] ER RHEUMATOLOGY [place], [place] [address] (Wo rk) documented as of this encounter Procedures Procedure Name Priority Date/Time Associated Diagnosis Comme nts CREATININE STAT 06/14/2017 9:44 AM Uncontrolled type 2 Re sults for this EST diabetes mellitus with proce dure are in complication, with the resul ts long-term current use sectio n. of insulin TSH STAT 06/14/2017 9:44 AM Uncontrolled type 2 Re sults for this EST diabetes mellitus with proce dure are in complication, with the resul ts long-term current use sectio n. of insulin HEMOGLOBIN A1C STAT 06/14/2017 9:44 AM Uncontrolled type 2 Results for this EST diabetes mellitus with proce dure are in complication, with the resul ts long-term current use sectio n. of insulin documented in this encounter Results TSH (06/14/2017 9:44 AM EST) P athologist Signature TSH 2.52 0.27 - 4.20 [facility] mlU/ML [facility] Specimen Anatomical Collection Method Collection Time Receive d Time (Source) Location / / Volume Laterality Blood specimen 06/14/2017 9:44 AM 017 9:53 (specimen) EST AM EST Resulting Agency Comment Spec In Lab Donell Hernandez MD CHEMISTRY ORDERABLES Performing Organization Address City/State/[place] [address] (ABNORMAL) Creatinine (06/14/2017 9:44 AM EST) Analysis Performed At Patho logist Time Signature Creatinine 1.94 (H) 0.80 - [facility] 1.50 mg/dL [facility] Estimated GFR 35 (L) >=60 [facility] Comment: The reported eGFR should be multiplied b y 1.2 for patients. The MDRD is not an appropriate measure o f renal function for patients with body mass extremes or in patients with acute kidney failure. http://[employer]/DHnkdep http://[employer]/DHMCnkf Specimen Anatomical Collection Method Collection Time Receive d Time (Source) Location / / Volume Laterality Blood specimen 06/14/2017 9:44 AM 017 9:53 (specimen) EST AM EST Resulting Agency Comment Spec In Lab Donell Hernandez MD CHEMISTRY ORDERABLES Performing Organization Address City/State/[place] [address] (ABNORMAL) Hemoglobin A1c (06/14/2017 9:44 AM EST) Analysis Performed At Patho logist Time Signature Hemoglobin A1C 8.2 (H) 4.3 - 5.6 [facility] Comment: Reference Range: 4.3 - [...] Mellitus, Diabetes Care 2013; 36: Suppl. 1, X29-10 Est Avg Gluc 189 mg/dL [facility] Comment: eAG equivalents for HbA1c percentages: HbA1c(%) ?eAG(mg/dL) 6.0 ?126 6.5 ?140 7.0 ?154 7.5 ?169 8.0 ?183 8.5 ?197 9.0 ?212 9.5 ?226 10.0 ? 240 Limitations: The eAG calculation has not been validated on women, individuals below 18 years old and above 70 years old, and individuals with hemoglobinopathies. Additional resources are available on [facility] website. Scooby MALDONADO, Nba J, Sydnee R, et al. ??Tr anslating the A1C assay into estimated average glucose values. ??Diabetes Care 2008:31(8):4052-3493. Specimen Anatomical Collection Method Collection Time Receive d Time (Source) Location / / Volume Laterality Blood specimen 06/14/2017 9:44 AM 017 9:53 (specimen) EST AM EST Resulting Agency Comment Spec In Lab Donell Hernandez MD CHEMISTRY ORDERABLES Performing Organization Address City/State/[place] [address] documented in this encounter Visit Diagnoses Diagnosis Uncontrolled type 2 diabetes mellitus [facility] complication, with long-term current use of insulin Type 2 diabetes mellitus with complicati on, with long-term current use of insulin documented in this encounter Care Teams Plaster Mechanic Relationship Specialty Start Date End Date Violetta Sanford MD PCP - General 04/02/14 [address] [place] [address] documented as of this encounter
--- OUTSIDE RECORDS SUMMARY | 2022-05-24 10:53 | XMS_ITS | Encounter Summary ---
:1955 Author Organization [facility] [place] [address] Care Team Providers Name Role Phone Violetta Sanford MD Primary Care Provider Encounter Details Date Type Department Care Team Description 03/30/2017 Office Visit Neurology at [facility] Shivam Rojas, Tremor, essential [facility] [place] [address] Neurology [phone] [place] [address] (Wo rk) Social History Tobacco Use Types [...] Sign Reading Time Taken Comments Blood Pressure 147/56 03/30/2017 10:25 AM EDT Pulse 70 03/30/2017 10:25 AM EDT Temperature - - Respiratory Rate - - Oxygen Saturation - - Inhaled Oxygen Concentration - - Weight 149.7 kg (330 lb) 03/30/2017 10:25 AM EDT Height - - Body Mass Index 39.65 03/09/2017 2:45 PM EDT documented in this encounter Progress Notes Shivam Rojas MD - 03/30/2017 10:30 AM EDT Dar Torres is a 61-year-old man with diabetes, 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 I inherited this patient from Angel Boyd. He has been on propanolol with fairly good control of tremor. He still is bothered by his tremor, particularly when he eats. In the computer, his prescription says 160 LA three time a day. He is really not sure what he is taking. I tried to use the pill identifier to determine it, but I was not successful. He did not bring a list with him. I asked him to go home and check what he is actually taking in terms of propanolol and to call me. Typically it is taken once a day or twice a day. Three times a day is somewhat atypical for the long acting version. He thinks he needs a renewal. I renewed the prescription as it stands, but like I mentioned, I am not clear that it is the correct dose, so I would like to clarify this. He does not think he is having any side effects. Meanwhile, he continues to take gabapentin 900 mg twice a day. He is not having any side effects. It is written for 3 times a day, but he usually does not take the lunchtime dose. It is not clear it is helping with anything either. He still gets severe phantom pains at times, but it seems random and unrelated to the gabapentin. We went over side effects in detail and as far as I could determine he is not having any side effects to the gabapentin or propanolol. I will schedule followup in 1 year, but as I mentioned, we will talk by phone today or tomorrow to make sure we have the current Inderal dose. I discussed potentially using Primidone or Klonopin but he is really not interested in tolerating any sedation and would rather live with the tremor. I spent 25 minutes in [id number] consultation with this patient, of which greater than half the visit was spent in supportive counseling and therapeutic planning. Shivam Rojas MD 03/30/2017 documented in this encounter Plan of Treatment Upcoming Encounters Date Type Specialty Care Team Description 05/26/2022 Office Visit Otolaryngology Ricardo Panda PA [facility] [address] [place], [place] [address] (Wo rk) 06/02/2022 Infusion Hematology and Oncology 06/16/2022 Infusion Hematology and Oncology 06/21/2022 Office Visit Neurology Tyler Rojas MD [facility] Neurology [place], [place] [phone] (Wo rk) 06/30/2022 Infusion Hematology and Oncology 07/14/2022 Infusion Hematology and Oncology 07/28/2022 Infusion Hematology and Oncology 08/11/2022 Infusion Hematology and Oncology 11/04/2022 Office Visit Rheumatology Dante Freedman PA [facility] RHEUMATOLOGY [place], [place] [address] (Wo rk) documented as of this encounter Visit Diagnoses Diagnosis Tremor, essential Essential and other specified forms of t remor documented in this encounter Care Teams Endocrinologist Relationship Specialty Start Date End Date Violetta Sanford MD PCP - General 04/02/14 [facility] [address] [place] [address] documented as of this encounter
--- OUTSIDE RECORDS SUMMARY | 2022-05-24 10:53 | XMS_ITS | Encounter Summary ---
:1955 Author Organization [facility] [place] [address] Care Team Providers Name Role Phone Violetta Sanford MD Primary Care Provider Encounter Details Date Type Department Care Team Description 02/11/2017 Refill Solid Organ Transplant Lynda Pyle, [place] [phone] Social History Tobacco Use Types Packs/Day [...] Encounter - Nicky Pyle CMA - 02/11/2017 8:57 AM EDT Patient's insurance requires generic cellcept Telephone Encounter - Nicky Pyle CMA - 02/11/2017 8:57 AM EDT ----- Message from Awa Calderon sent at 02/11/2017 8:53 AM EDT ----- Regarding: FW: RX Contact: gamal sauceda cellcept needs to be changed to generic at the pharmacy so his insurance will cover it. Thanks. He's going to pick it up today. ----- Message ----- From: Abiola Kelly Sent: 02/09/2017 3:00 PM To: Abdiel Shipley MSW, # Subject: RX Gamal got his [facility] back. He only has 3 days of Cellcept and 5 days of Prograf left. Prescriptions have been sent to Pharmacy. He would have to pay over $300.00. I asked if they had tried to process it through [facility] again. He was told he needed to call us. documented in this encounter Plan of Treatment Upcoming Encounters Date Type Specialty Care Team Description 05/26/2022 Office Visit Otolaryngology Ricardo Panda PA [facility] [address] [place], [place] [address] (Wo rk) 06/02/2022 Infusion Hematology and Oncology 06/16/2022 Infusion Hematology and Oncology 06/21/2022 Office Visit Neurology Tyler Rojas MD [facility] Neurology [place], [place] [phone] (Wo rk) 06/30/2022 Infusion Hematology and Oncology 07/14/2022 Infusion Hematology and Oncology 07/28/2022 Infusion Hematology and Oncology 08/11/2022 Infusion Hematology and Oncology 11/04/2022 Office Visit Rheumatology Dante Freedman PA [facility] RHEUMATOLOGY [place], [place] [address] (Wo rk) documented as of this encounter Visit Diagnoses Diagnosis Transplanted kidney Kidney replaced by transplant documented in this encounter Care Teams Director Of Extension Work Relationship Specialty Start Date End Date Violetta Sanford MD PCP - General 04/02/14 [address] [place] [address] documented as of this encounter
--- OUTSIDE RECORDS SUMMARY | 2022-05-24 10:53 | XMS_ITS | Encounter Summary ---
:1955 Author Organization [facility] Address [address] [place] [address] Care Team Providers Name Role Phone Violetta Sanford MD Primary Care Provider Encounter Details Date Type Department Care Team Description 12/13/2017 Laboratory Appointment Lab 3L [facility] Type 2 diabetes [facility] mellitus with [facility] complicat ion, with Drive long-term current use [place], [place] of insulin [phone] Social History Tobacco Use Types Packs/Day Years [...] Ricardo Panda PA [facility] [address] [place] [address] (Wo rk) 06/02/2022 Infusion Hematology and Oncology 06/16/2022 Infusion Hematology and Oncology 06/21/2022 Office Visit Neurology Tyler Rojas MD [facility] Dr Sofi [place] [address]22 (Wo rk) 06/30/2022 Infusion Hematology and Oncology 07/14/2022 Infusion Hematology and Oncology 07/28/2022 Infusion Hematology and Oncology 08/11/2022 Infusion Hematology and Oncology 11/04/2022 Office Visit Rheumatology Dante Freedman PA [facility] RHEUMATOLOGY [place] [address] (Wo rk) documented as of this encounter Procedures Procedure Name Priority Date/Time Associated Diagnosis Comme nts TSH Routine 12/13/2017 9:48 AM Type 2 diabetes Result s for this EDT mellitus with procedure are in the complication, with results s ection. long-term current use of insulin HEMOGLOBIN A1C STAT 12/13/2017 9:48 AM Type 2 diabetes Resu lts for this EDT mellitus with procedure are in the complication, with results s ection. long-term current use of insulin documented in this encounter Results TSH (12/13/2017 9:48 AM EDT) athologist Signature TSH 2.37 0.27 - 4.20 [facility] mlU/ML [facility] Specimen Anatomical Collection Method Collection Time Receive d Time (Source) Location / / Volume Laterality Blood specimen 12/13/2017 9:48 AM 018 (specimen) EDT 10:03 AM EDT Resulting Agency Comment Spec In Lab Donell Hernandez MD CHEMISTRY ORDERABLES Performing Organization Address City/State/[place] [address] (ABNORMAL) Hemoglobin A1c (12/13/2017 9:48 AM EDT) Analysis Performed At Patho logist Time Signature Hemoglobin A1C 8.3 (H) 4.3 - 5.6 [facility] [...] Mellitus, Diabetes Care 2013; 36: Suppl. 1, S67-42 Est Avg Gluc 192 mg/dL [facility] Comment: eAG equivalents for HbA1c [...] into estimated average glucose values. ??Diabetes Care 2008:31(8):0240-3808. Specimen Anatomical Collection Method Collection Time Receive d Time (Source) Location / / Volume Laterality Blood specimen 12/13/2017 9:48 AM 018 (specimen) EDT 10:03 AM EDT Resulting Agency Comment Spec In Lab Donell Hernandez MD CHEMISTRY ORDERABLES Performing Organization Address City/State/[place] [address] documented in this encounter Visit Diagnoses Diagnosis Type 2 diabetes mellitus with complicati on, with long-term current use of insulin documented in this encounter Care Teams Marketing Officer Relationship Specialty Start Date End Date Violetta Sanford MD PCP - General 04/02/14 [address] [place] [address] documented as of this encounter
--- OUTSIDE RECORDS SUMMARY | 2022-05-24 10:53 | XMS_ITS | Encounter Summary ---
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 TRANSPLANT SURGERY [place], [place] [id number] [place] [id number] Referral ID Status Reason Start Date Expiration Date Visits V isits Requested Authorized [id number] Consult, 03/08/2017 03/08/2018 6 6 Test & Treat Reason for Visit Reason Comments Kidney Transplant Follow-up Immunotherapy Encounter Details Date Type Department Care Team Description 02/28/2017 Office Visit Solid Organ Alejo Garnett Kidney re placed by transplant; Transplant at [facility] MD Thang Type 2 diabetes mellitus with other kidn ey complication; [facility] Imm unosuppression; Drive H/O kidney transplant; [place], [place] TRANSPLANT SURGE RY Aftercare following organ transplant; [id number] [place] [address] Persistent proteinuria [phone] Social History Tobacco Use Types Packs/Day Years [...] Sign Reading Time Taken Comments Blood Pressure 150/63 02/28/2017 11:20 AM EDT Pulse 62 02/28/2017 11:20 AM EDT Temperature 36.9 ??C (98.4 ??F) 02/28/2017 11:20 AM EDT Respiratory Rate 16 02/28/2017 11:20 AM EDT Oxygen Saturation 93% 02/28/2017 11:20 AM EDT Inhaled Oxygen Concentration - - Weight 151.2 kg (333 lb 6.4 oz) 02/28/2017 11:20 AM EDT Height 198.1 cm (6' 6) 02/28/2017 11:20 AM EDT Body Mass Index 38.53 02/28/2017 11:20 AM EDT documented in this encounter Progress Notes Alejo Garnett MD - 02/28/2017 11:20 AM EDT [facility] Transplant Nephrology Follow Up ? Leroy Dailey [id number] 1955 ? Transplant ID: Date: 02/28/2017 Patient: Leroy Dailey Transplant Date: 02/29/08 Organ(s) Kidney [place] organ diagnosis: Diabetes Mellitus - Type II From Transplant: 9 years ?? Transplant ID: Mr. Leroy Dailey is a White Not nor 61 y.o. male who is Status Post Kidney transplantation. Patient referred by Dr. Xiao. Mr. Leroy Dailey presents to clinic forroutine follow-up of care, for Kidney transplantation. Trouble sleeping at night. MELISSA was diagnosed and Rehabilitation Liaison ordered CPAP machine at night with nebz for him; he is still trying to be consistent about its use. Here today with both and mother. ? History of Present Illness: Mr. Dailey is here today for a routine follow up at 9 years. I reviewed his labs and HCM with him and his significant women. His diabetic control is poor and he needs input from an expert who takes care of renal transplants and diabetes. I have consulted Dr. Hernandez. Average hgbA1C 9% ? Healthcare maintenance for a transplant recipient: ? Immunizations (no live virus or modified bacterial vaccines) Prevnar 13 once in a lifetime Pneumovax 23 every 5 years Tdap every 10 years Annual flu shot Annual PCP exam Annual LITZY and PSA for males over 40 Annual pap gyne for females (pap if cervix present; visual inspection if no cervix present) Annual mammogram for females over 40, younger than 40 if family hx positive Every 5 year colonoscopy after age 50 2017 Monthly self skin exam, daily spf 50 sunblock, annual derm consult if hx of skin cancer Annual eye exam Semi annual dental evaluation with prophylactic antibiotics Cardiac stress test after age 50, every 3 years for diabetics, every 5 for non diabetics done 03/21/2015 (next one in 2018) [place] kidney ultrasound looking for renal cell CA, every 5 years post transplant Bone density assessment every 9-12 years post transplant Annual fasting lipid profile Annual PTH-Vit D3 assessment until normalized Annual 24 hour timed urine for creatinine, protein, calcium, phosphate, magnesium ? PMHx: ?? 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 Diabetes Mellitus ?? S/p bilateral BKA ?? Asthma, nasal polyps. ?? Essential tremor. ?? Hypertension. ?? GERD. ?? Chronic large Hydrocele ? ROS: Denies fevers, chills, nausea, vomiting, diarrhea, abd pain, chest pain, sob. No other positives or negatives. ? Medications: Current Outpatient Prescriptions: ??? mycophenolate (CELLCEPT) 250 mg Capsule, Take 2 capsules by mouth 2 times daily. Kidney Transplant Z94.0. Transplant Date; 02-29-08, Disp: 120 capsule, Rfl: 11 ??? PROGRAF 1 mg Capsule, Take 1 capsule by mouth 2 times daily. KIDNEY TRANSPLANT Z94.0. TRANSPLANTDATE - 02/29/2008, Disp: 60 capsule, Rfl: 11 ??? atorvastatin (LIPITOR) 20 mg Tablet, Take [...] daily., Disp: 90 capsule, Rfl: 3 ??? LEVEMIR FLEXTOUCH Insulin Pen, Inject 130 Units subcutaneously daily. Inject 60 units in the morning, and 70 units at night. ICD 10 Code: E11.40, Disp: 45 mL, Rfl: 11 ??? OXYGEN-AIR DELIVERY SYSTEMS (HORIZON NASAL CPAP SYSTEM MISC), Inhale into the lungs nightly., Disp: , Rfl: ??? albuterol (PROVENTIL) 2.5 mg /3 mL (0.083 %) Solution for Nebulization, Take 2.5 mg by nebulization every 4 hours as needed for Wheezing., Disp: , Rfl: ??? propranolol (INDERAL LA) 160 mg Capsule,Sustained Action 24 hr, Take 1 capsule by mouth 3 times daily., Disp: 270 capsule, Rfl: 3 ??? gabapentin (NEURONTIN) 300 mg Capsule, Take 3 capsules by mouth 3 times daily., Disp: 810 capsule, Rfl: 3 ??? acetaminophen (TYLENOL) 325 mg Tablet, Take 650 mg by mouth every 4 hours as needed for Pain. Reported on 08/06/2016, Disp: , Rfl: ??? cholecalciferol, Vitamin D3, 2,000 unit Tablet, Take 2,000 Units by mouth daily., Disp: , Rfl: 0 ??? ipratropium-albuterol (DUONEB) 0.5 mg-3 mg(2.5 mg base)/3 mL Solution for Nebulization, Take 3 mLs by nebulization 2 times daily., Disp: , Rfl: 1 ??? STIOLTO RESPIMAT 2.5-2.5 mcg/actuation Mist, Inhale 2 puffs into the lungs daily., Disp: , Rfl: 1 ??? Miscellaneous Medical Supply [facility], 4 Devices by [facility].(Non-Drug; Combo Route) route daily. Rubbersheath for leg [...] Needle, , Disp: , Rfl: 0 ??? Insulin Raymond, Disposable, (BD INSULIN PEN NEEDLE UF SHORT) 31 X 5/16 Needle, Form faxed fornew Rx to [facility], Disp: 450 each, Rfl: 4 ??? fluticasone (FLONASE) 50 mcg/actuation nasal spray, 2 sprays by Each Nare route as needed., Disp: 64 g, Rfl: 11 ??? MULTIVITS-MINERALS/FA/LYCOPENE (ONE-A-DAY MEN'S MULTIVITAMIN ORAL), Take by mouth daily., Disp: , Rfl: ??? aspirin 81 mg EC tablet, Take 81 mg by mouth daily., Disp: , Rfl: ??? montelukast (SINGULAIR) 10 mg tablet, Take 10 mg by mouth daily., Disp: , Rfl: ? Allergies / ADRs: ? Allergies Allergen Reactions ??? Penicillins Anaphylaxis ??? Iftikhar Inhibitors ? Cough ??? Clindamycin Hcl Rash ??? Allergenic Extracts ? Birch and Nut Trees, cats, dust, pollen ? Immunization History Administered Date(s) Administered ??? Hepatitis B Vaccine, unspecified formulation 08/20/2004, 09/28/2004, 03/01/2005 ??? Influenza PF, Split 05/13/2016 ??? Influenza Vaccine, Whole 05/19/2005, 06/25/2008 ??? Pneumococcal Conjugate (13 Valent) 07/09/2015 ??? Pneumococcal Polyvalent 23 12/20/1996, 02/10/2007, 02/23/2012 ??? Td, adult 06/24/1990 ??? Tdap Vaccine 07/13/2013 PHYSICAL EXAM: Vitals Office Visit from 02/28/2017 in Transplant Weight - Scale (!) 151.2 kg (333 lb 6.4 oz) Height (!) 198.1 cm (6' 6) BSA (Calculated - sq m) 2.88 sq meters BMI (Calculated) 38.5 Temp 36.9 ??C (98.4 ??F) Temp Source Oral Heart Rate 62 Resp 16 BP 150/63 SpO2 93 % Gen - AAO x 3 in NAD obese wheelchair bound Skin - No exanthem. HEENT - Mucous membranes moist. Chest: Lungs clear to ausculatation w/o wheezes/ rhonchi/ crackles. Heart - S1 and S2 clear w/o murmur, gallop, or rub. JVP not elevated. Abd - Soft. + BS. No bruit. Non tender. No organomegaly. Ext -Bilateral stumps of bka wrapped in bandages. He wears prosthetic limbs. ? Labs/ Imaging: Results for LEROY DAILEY ( ) as of 03/08/2017 12:58 Ref. Range 02/28/2017 09:00 02/28/2017 10:05 02/28/2017 10:13 WBC Latest Ref Range: 4.0 - 9.5 x10(3)/mcL 7.1 RBC Latest Ref Range: 4.58 - 5.54 x10(6)/mcL 4.05 (L) Hemoglobin Latest Ref Range: 13.7 - 16.5 gm/dL 12.5 (L) Hematocrit Latest Ref Range: 40.5 - 48.5 % 38.7 (L) MCV Latest Ref Range: 82.9 - 93.1 fL 95.6 (H) MCH Latest Ref Range: 27.5 - 32.1 pg 30.9 MCHC Latest Ref Range: 32.0 - 35.7 gm/dL 32.3 RDWSD Latest Ref Range: 36.0 - 45.0 fL 48.3 (H) RDWCV Latest Ref Range: 11.4 - 13.8 % 13.9 (H) Platelets Latest Ref Range: 145 - 357 x10(3)/mcL 182 MPV Latest Ref Range: 7.6 - 12.[address] % Latest Ref Range: 0.7 - 2.6 % 3.4 (H) Retic Ct Abs Latest Ref Range: 0.030 - 0.120 x10(6)/mcL 0.140 (H) Immature Retic% Latest Ref Range: 0.0 - 15.6 % 21.7 (H) Reticulated Hgb Latest Ref Range: 31.3 - 40.2 pg 33.9 nRBC % Auto Latest Units: % 0.0 nRBC Abs Auto Latest Ref Range: 0.000 - 0.000 x10(3)/mcL 0.000 Neutr Abs (ANC) Latest Ref Range: 1.70 - 6.10 x10(3)/mcL 4.20 Neutrophils % Latest Units: % 58.8 Immature Gran % Latest Units: % 0.60 Lymphocytes % Latest Units: % 27.5 Monocytes % Latest Units: % 8.8 Eosinophils % Latest Units: % 3.5 Basophils % Latest Units: % 0.8 Courtney Gran Abs Latest Ref Range: 0.00 - 0.04 x10(3)/mcL 0.04 Lymphocytes Abs Latest Ref Range: 0.9 - 3.2 x10(3)/mcL 2.0 Monocyte Abs Latest Ref Range: 0.3 - 0.9 x10(3)/mcL 0.6 Eosinophils Abs Latest Ref Range: 0.0 - 0.4 x10(3)/mcL 0.2 Basophils Abs Latest Ref Range: 0.0 - 0.1 x10(3)/mcL 0.1 Sodium Latest Ref Range: 135 - 145 mmol/L 137 Potassium Latest Ref Range: 3.5 - 5.0 mmol/L 4.9 Chloride Latest Ref Range: 98 - 107 mmol/L 102 CO2 Latest Ref Range: 22 - 31 mmol/L 22 Anion Gap Latest Ref Range: 5 - 15 mmol/L 13 BUN Latest Ref Range: 10 - 20 mg/dL 32 (H) Creatinine Latest Ref Range: 0.80 - 1.50 mg/dL 1.91 (H) Estimated GFR Latest Ref Range: >=60 36 (L) Glucose Lvl Latest Ref Range: 65 - 199 mg/dL 305 (H) Calcium Latest Ref Range: 8.5 - 10.5 mg/dL 9.6 Magnesium Latest Ref Range: 0.69 - 1.07 mmol/L 0.72 Phosphorus Latest Ref Range: 2.5 - 4.5 mg/dL 3.2 Uric Acid Latest Ref Range: 3.5 - 8.5 mg/dL 9.1 (H) Total Protein Latest Ref Range: 6.1 - 8.0 gm/dL 8.0 Albumin Latest Ref Range: 3.2 - 5.2 gm/dL 3.4 Total Bilirubin Latest Ref Range: 0.2 - 1.3 mg/dL 0.5 Alk Phos Latest Ref Range: 40 - 120 unit/L 146 (H) AST Latest Ref Range: 0 - 39 unit/L 16 ALT Latest Ref Range: 0 - 55 unit/L 21 U Protein Ran Latest Ref Range: 0 - 12 mg/dL 35 (H) Chol, Total Latest Ref Range: <=239 mg/dL 103 Lipid Interpretation Unknown See Note Tacrolimus Lvl Latest Units: ng/mL 5.9 Color UA Latest Ref Range: Yellow Yellow Appearance UA Latest Ref Range: Clear Clear Spec [place] UA Latest Ref Range: 1.002 - 1.030 1.013 pH UA Latest Ref Range: 5.0 - 8.0 5.0 Protein UA Latest Ref Range: Negative mg/dL 30 (A) Glucose UA Latest Ref Range: Negative mg/dL >=500 (CRIT) Ketones UA Latest Ref Range: Negative mg/dL [...] Ref Range: 0 - 3 /HPF 1 Squam Epith UA Latest Ref Range: <=4 /HPF <1 Culture Reflexed Unknown No Prot/Cre Ratio Latest Units: ratio 0.4 U Creatinine Latest Units: mg/dL 89 Urine TV (ml) Latest Units: mL 2049 Hours Collected Latest Units: hour(s) 24 U24 Ca Calc Latest Ref Range: 50.0 - 300.0 mg/24hr 28.7 (L) U24 Ca Conc Latest Units: mg/dL 1.4 U24 Creat Calc Latest Ref Range: 0.80 - 1.90 gm/24hr 1.64 U24 Creat Conc Latest Units: mg/dL 80 U24 Phos Calc Latest Ref Range: 0.4 - 1.3 gm/24hr 0.9 U24 Phos Conc Latest Units: mg/dL 41.5 U24 Prot Calc Latest Ref Range: <=0.15 gm/24hr 0.62 (H) U24 Prot Conc Latest Ref Range: <=80 mg/dL 30 ? Impression/ Plan: Leroy Dailey is Status Post Kidney transplantation. Mr. Leroy Dailey's renal function has deteriorated, likely due to dehydration and poor diabetic control. His proteinuria is increasing. Thus I increased his losartan to 25 mg qhs. Patient is encouraged to continue with 3 +liters of fluid intake per day. I also encouraged patient to keep up with all recommended health maintenance visits, routine lab testing and screenings. ? Diabetes Uncontrolled; Diabetes poorly controlled; recent Hbg A1C >9%; refer to Dr. Hernandez ? Hypercholesterolemia Total cholesterol stable on Rx ? Graft function: Rise in creat seems secondary to dehydration and likely poor diabetic control. I reverted back to the higher losartan dose because proteinuria worse And diabetic control poor. May have K+ issues again. ? Immunosuppression: Prograf: 1mg twice daily. Cellcept: 500mg twice daily. Prograf level at goal ? Hypertension Management: Good ? Hyperlipidemia Management: Continue atorvastatin ? Calcium and phosphorous Management: stable ? Magnesium Management: stable ? All age appropriate and post-transplant, routine health maintenance tests and screenings are strongly recommended. Follow up: 12 months with repeat labs quarterly documented in this encounter Plan of Treatment Upcoming Encounters Date Type Specialty Care Team Description 05/26/2022 Office Visit Otolaryngology Ricardo Panda PA [facility] STELLA [place] [phone] (Wo rk) 06/02/2022 Infusion Hematology and Oncology 06/16/2022 Infusion Hematology and Oncology 06/21/2022 Office Visit Neurology Tyler Rojas MD [facility] Dr Sofi Rodriguez [place] [phone] (Wo rk) 06/30/2022 Infusion Hematology and Oncology 07/14/2022 Infusion Hematology and Oncology 07/28/2022 Infusion Hematology and Oncology 08/11/2022 Infusion Hematology and Oncology 11/04/2022 Office Visit Rheumatology Dante Freedman PA [facility] RHEUMATOLOGY [place], [place] 0375 (Wo rk) Scheduled Referrals Name Type Priority Associated Order Schedule Diagnoses Referral to Outpatient Referral Routine Kidney replaced by Or dered: Endocrinology transplant 03/08/2017 Type 2 diabetes mellitus with other kidney complicat ion Immunosuppressio n Persistent proteinuria documented as of this encounter Results (ABNORMAL) Urinalysis with reflex Culture (02/28/2017 10:13 AM EDT) [facility] Method Time Signature Glucose UA >=500 Negative [facility] (Critical) mg/dL [facility] Comment: Urinalysis result NOT critical without a combination of Glucose greater than or equal to 500mg/dl AND Ketones greater th an or equal to 80mg/dl. Protein UA 30 (A) Negative mg/dL [facility] Bilirubin UA Negative Negative mg/dL [facility] Comment: Clinical correlation required for positi ve Urine Bilirubin results as false positive may occur with some drugs and d rug related products. If a false positive is suspected a serum total bili reyna should be considered if clinically indicated. Urobilinogen UA Normal Normal mg/dL [facility] pH UA 5.0 5.0 - 8.0 [facility] Blood UA Negative Negative mg/dL [facility] Ketones UA Negative Negative mg/dL [facility] Nitrite UA Negative Negative [facility] Leukocytes UA Negative Negative [facility] LABORATORY Appearance UA Clear Clear [facility] Spec [place] UA 1.013 1.002 - 1.030 [facility] Color UA Yellow Yellow [facility] RBC UA 1 0 - 3 /HPF [facility] WBC UA 1 0 - 3 /HPF [facility] Squam Epith UA <1 <=4 /HPF [facility] Culture Reflexed No [facility] Specimen (Source) Anatomical Collection Method Collection Time Re ceived Time Location / / Volume Laterality Urine specimen 02/28/2017 10:13 7 obtained by clean AM EDT 10:23 AM E DT catch procedure (specimen) Resulting Agency Comment Spec In Lab Alejo Garnett MD URINE ORDERABLES Performing Organization Address City/State/ZIP Code Phon e Number [address] (ABNORMAL) Protein/Creatinine Ratio, urine (02/28/2017 10:13 AM EDT) P athologist Signature U Creatinine 89 mg/dL [facility] U Protein Ran 35 (H) 0 - 12 [facility] mg/dL [facility] Prot/Cre Ratio 0.4 ratio [facility] Specimen Anatomical Collection Method Collection Time Receive d Time (Source) Location / / Volume Laterality Urine specimen 02/28/2017 10:13 7 (specimen) AM EDT 10:23 AM EDT Resulting Agency Comment Spec In Lab Alejo Garnett MD URINE ORDERABLES Performing Organization Address City/State/ZIP Code Phon e Number [address] Gold Tube HOLD (02/28/2017 10:05 AM EDT) P athologist Signature Gold Hold Sample in [facility] LABORATORY Specimen Anatomical Collection Method Collection Time Receive d Time (Source) Location / / Volume Laterality Blood specimen 02/28/2017 10:05 7 (specimen) AM EDT 10:13 AM EDT Alejo Garnett MD CHEMISTRY ORDERABLES Performing Organization Address City/State/ZIP Code Phon e Number [address] Lavender Tube HOLD (02/28/2017 10:05 AM EDT) Patholo gist Method Time Signature Lavender Hold Sample in [facility] lab. [facility] Specimen Anatomical Collection Method Collection Time Receive d Time (Source) Location / / Volume Laterality Blood specimen 02/28/2017 10:05 7 (specimen) AM EDT 10:13 AM EDT Alejo Garnett MD HEMATOLOGY ORDERABLES Performing Organization Address City/[facility]/ZIP Code Phon e Number [address] (ABNORMAL) Uric acid (02/28/2017 10:05 AM EDT) P athologist Signature Uric Acid 9.1 (H) 3.5 - 8.5 [facility] mg/dL [facility] Specimen Anatomical Collection Method Collection Time Receive d Time (Source) Location / / Volume Laterality Blood specimen 02/28/2017 10:05 7 (specimen) AM EDT 10:13 AM EDT Resulting Agency Comment Spec In Lab Alejo Garnett MD CHEMISTRY ORDERABLES Performing Organization Address City/[facility] Code Phon e Number [address] Tacrolimus level (02/28/2017 10:05 AM EDT) P athologist Signature Tacrolimus Lvl 5.9 ng/mL [facility] Comment: Trough therapeutic: ??5-15 ng/mL Performed by ultra-performance liquid ch romatography tandem mass spectrometry (UPLCMS/MS). This test was developed and its performa nce characteristics determined by [facility]. It has not been cleared or approved by the FDA. The laboratory is regulated under CLIA a s qualified to perform high-complexity testing. This test is used for clinical purposes. It should not be regarded as investigational or for research. Specimen Anatomical Collection Method Collection Time Receive d Time (Source) Location / / Volume Laterality Blood specimen 02/28/2017 10:05 7 (specimen) AM EDT 11:13 AM EDT Resulting Agency Comment Spec In Lab Alejo Garnett MD CHEMISTRY ORDERABLES Performing Organization Address City/[facility]/[place] [address] (ABNORMAL) Reticulocyte Count (02/28/2017 10:05 AM EDT) Patholo gist Method Time Signature Retic Ct % 3.4 (H) 0.7 - 2.6 JERE MELI % [facility] Retic Ct Abs 0.140 (H) 0.030 - JERE MELI 0.120 [facility] x10(6)/[facility] L LABORATORY Immature Retic% 21.7 (H) 0.0 - [facility] 15.6 % [facility] Reticulated Hgb 33.9 31.3 - [facility] 40.[address] [facility] Specimen Anatomical Collection Method Collection Time Receive d Time (Source) Location / / Volume Laterality Blood specimen 02/28/2017 10:05 7 (specimen) AM EDT 10:13 AM EDT Resulting Agency Comment Spec In Lab Alejo Garnett MD HEMATOLOGY ORDERABLES Performing Organization Address City/State/ZIP Code Phon e Number [address] Phosphorus (02/28/2017 10:05 AM EDT) P athologist Signature Phosphorus 3.2 2.5 - 4.5 [facility] MELI mg/dL [facility] Specimen Anatomical Collection Method Collection Time Receive d Time (Source) Location / / Volume Laterality Blood specimen 02/28/2017 10:05 7 (specimen) AM EDT 10:13 AM EDT Resulting Agency Comment Spec In Lab Alejo Garnett MD CHEMISTRY ORDERABLES Performing Organization Address City/State/ZIP Code Phon e Number [address] Magnesium (02/28/2017 10:05 AM EDT) P athologist Signature Magnesium 0.72 0.69 - 1.07 JERE MELI mmol/L [facility] Specimen Anatomical Collection Method Collection Time Receive d Time (Source) Location / / Volume Laterality Blood specimen 02/28/2017 10:05 7 (specimen) AM EDT 10:13 AM EDT Resulting Agency Comment Spec In Lab Alejo Garnett MD CHEMISTRY ORDERABLES Performing Organization Address City/State/[place] [address] (ABNORMAL) Comprehensive metabolic panel (non-fasting) (02/28/2017 10:05 AM EDT) P athologist Signature Glucose Lvl 305 (H) 65 - 199 [facility] mg/dL [facility] Comment: Diabetes: >=200 mg/dL plus symp toms BUN 32 (H) 10 - 20 mg/dL [facility] Creatinine 1.91 (H) 0.80 - 1.50 mg/dL [facility] Comment: Please note that the pediatric reference intervals supplied above were not validated at [facility]. Results from pediatri c patients should be interpreted in conjunction to the patient's age, height and muscle mass. Sodium 137 135 - 145 mmol/L [facility] Potassium 4.9 3.5 - 5.0 mmol/L [facility] Comment: Please note: ??Patients with WBC >100,00 0 may have falsely elevated Potassium levels. ??For accurate Potassium quantif ication in these patients send serum separator tube (gold top) for subsequent determinations. ??Contact the Clinical Chemistry Laboratory if there are any qu estions. Chloride 102 98 - 107 mmol/L [facility] CO2 22 22 - 31 mmol/L [facility] Anion Gap 13 5 - 15 mmol/L [facility] Calcium 9.6 8.5 - 10.5 mg/dL [facility] Total Protein 8.0 6.1 - 8.0 gm/dL [facility] Albumin 3.4 3.2 - 5.2 gm/dL [facility] AST 16 0 - 39 unit/L [facility] ALT 21 0 - 55 unit/L [facility] Alk Phos 146 (H) 40 - 120 unit/L [facility] Total Bilirubin 0.5 0.2 - 1.3 mg/dL [facility] Estimated GFR 36 (L) >=60 JERE MELI [facility] Comment: This estimated GFR (eGFR) value was calc ulated using the MDRD equation which has been validated on patients between t he ages of 18 and 70. The MDRD should not be used to assess kidney function in patients < 18 years of age or in patients with extremes of body mass, or in patients with acute kidney failure. This value should be multiplied by 1.2 f or patients. For further information please copy and past e the following links into your internet browser. [email or web address] [email or web address] [email or web address] [email or web address] Specimen Anatomical Collection Method Collection Time Receive d Time (Source) Location / / Volume Laterality Blood specimen 02/28/2017 10:05 7 (specimen) AM EDT 10:13 AM EDT Resulting Agency Comment Spec In Lab Alejo Garnett MD CHEMISTRY ORDERABLES Performing Organization Address City/State/[place] [address] Cholesterol, total (02/28/2017 10:05 AM EDT) [facility] Method Time Signature Chol, Total 103 <=239 [facility] mg/dL [facility] Lipid See Note JERE Interpretation [facility] Comment: Lipid management should be guided by a p atient? s ASCVD risk, goals and preferences. ACC/AHA Guidelines recommend high intens ity statin if clinical ASCVD or LDL greater than or equal to 190 mg/dL. [email or web address] Adults aged 40-75 with LDL 70-189 mg/dL should have their 10 year ASCVD risk estimated with the ACC/AHA ASCVD risk es timator http://tools.acc.org/RLMHN-Emwu-Eyraesqr r/ Statin should be discussed if risk [...] Location / / Volume Laterality Blood specimen 02/28/2017 10:05 7 (specimen) AM EDT 10:13 AM EDT Resulting Agency Comment Spec In Lab Alejo Garnett MD CHEMISTRY ORDERABLES Performing Organization Address City/[facility]/ZIP Code Phon e Number [address] (ABNORMAL) Protein, urine, 24 hour (02/28/2017 9:00 AM EDT) Analysis Performed At Patho logist Time Signature U24 Prot Conc 30 <=80 mg/dL [facility] U24 Prot Calc 0.62 (H) <=0.15 [facility] gm/24hr [facility] Specimen Anatomical Collection Method Collection Time Receive d Time (Source) Location / / Volume Laterality Urine specimen 02/28/2017 9:00 AM 017 (specimen) EDT 11:38 AM EDT Resulting Agency Comment Spec In Lab Alejo Garnett MD URINE ORDERABLES Performing Organization Address City/[facility]/ZIP Code Phon e Number [address] Phosphorus, urine, 24 hour (02/28/2017 9:00 AM EDT) P athologist Signature U24 Phos Conc 41.5 mg/dL [facility] U24 Phos Calc 0.9 0.4 - 1.3 [facility] gm/24hr [facility] Specimen Anatomical Collection Method Collection Time Receive d Time (Source) Location / / Volume Laterality Urine specimen 02/28/2017 9:00 AM 017 (specimen) EDT 11:38 AM EDT Resulting Agency Comment Spec In Lab Alejo Garnett MD URINE ORDERABLES Performing Organization Address City/[facility]/[place] [address] (ABNORMAL) Calcium, urine, 24 hour (02/28/2017 9:00 AM EDT) P athologist Signature U24 Ca Conc 1.4 mg/dL [facility] U24 Ca Calc 28.7 (L) 50.0 - [facility] 300.0 [facility] mg/24hr [facility] Comment: Reference Range: 50.0-300.0 mg/ 24 hour based on diet. Specimen Anatomical Collection Method Collection Time Receive d Time (Source) Location / / Volume Laterality Urine specimen 02/28/2017 9:00 AM 017 (specimen) EDT 11:38 AM EDT Resulting Agency Comment Spec In Lab Alejo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
--- OUTSIDE RECORDS SUMMARY | 2022-05-24 10:53 | XMS_ITS | Encounter Summary ---
:1955 Author Organization [facility] [place] [address] Care Team Providers Name Role Phone Violetta Sanford MD Primary Care Provider Encounter Details Date Type Department Care Team Description 03/15/2018 Laboratory Appointment Lab 3L Sylvia Cooper Kidney replaced by [facility] [place] [id number] Social History Tobacco Use Types Packs/Day Years [...] Otolaryngology Ricardo Panda PA [facility] er Dr [place] [address] (Wo rk) 06/02/2022 Infusion Hematology and Oncology 06/16/2022 Infusion Hematology and Oncology 06/21/2022 Office Visit Neurology Tyler Rojas MD [facility] er [place] [phone] (Wo rk) 06/30/2022 Infusion Hematology and Oncology 07/14/2022 Infusion Hematology and Oncology 07/28/2022 Infusion Hematology and Oncology 08/11/2022 Infusion Hematology and Oncology 11/04/2022 Office Visit Rheumatology Dante Freedman PA [facility] [address] [place], [place] [address] (Wo rk) documented as of this encounter Procedures Procedure Name Priority Date/Time Associated Comments Diagnosis URINALYSIS STAT 03/15/2018 10:03 Results for this MICROSCOPIC EXAM AM EDT procedure a re in the results section. BKV QUANT URINE STAT 03/15/2018 10:03 Kidney replaced by Re sults for this AM EDT transplant procedure are i n the results section. CALCIUM CREATININE STAT 03/15/2018 10:03 Kidney replaced by Results for this RATIO, RANDOM URINE AM EDT transplant procedur e are in the results section. PROTEIN/CREATININE STAT 03/15/2018 10:03 Kidney replaced by Results for this RATIO, URINE AM EDT transplant procedure are i n the results section. PHOSPHORUS, URINE, STAT 03/15/2018 10:03 Kidney replaced by Results for this RANDOM AM EDT transplant procedure are i n the results section. CREATININE, URINE, STAT 03/15/2018 10:03 Kidney replaced by Results for this RANDOM AM EDT transplant procedure are i n the results section. URINALYSIS WITH STAT 03/15/2018 10:03 Kidney replaced by Re sults for this REFLEX CULTURE AM EDT transplant procedure are in the results section. U24 HRS AND VOLUME STAT 03/15/2018 9:45 AM Res ults for this EDT procedure are i n the results section. URIC ACID, URINE, 24 STAT 03/15/2018 9:45 AM Kidney replace d by Results for this HOUR EDT transplant procedure are i n the results section. CALCIUM, URINE, 24 STAT 03/15/2018 9:45 AM Kidney replaced by Results for this HOUR EDT transplant procedure are i n the results section. CREATININE, URINE, 24 STAT 03/15/2018 9:45 AM Kidney replac ed by Results for this HOUR EDT transplant procedure are i n the results section. PROTEIN, URINE, 24 STAT 03/15/2018 9:45 AM Kidney replaced by Results for this HOUR EDT transplant procedure are i n the results section. PHOSPHORUS, URINE, 24 STAT 03/15/2018 9:45 AM Kidney replac ed by Results for this HOUR EDT transplant procedure are i n the results section. CREATININE CLEARANCE, STAT 03/15/2018 9:45 AM Kidney replac ed by Results for this URINE, 24 HOUR EDT transplant procedure are in the results section. PTH STAT 03/15/2018 9:40 AM Kidney replaced by Res ults for this EDT transplant procedure are i n the results section. CMP W/FASTING GLUCOSE STAT 03/15/2018 9:40 AM Kidney replac ed by Results for this EDT transplant procedure are i n the results section. HEMOGRAM STAT 03/15/2018 9:40 AM Kidney replaced by Res ults for this EDT transplant procedure are i n the results section. DIFFERENTIAL, STAT 03/15/2018 9:40 AM Kidney replaced by Re sults for this AUTOMATED EDT transplant procedure are i n the results section. GOLD TUBE HOLD STAT 03/15/2018 9:40 AM Kidney replaced by R esults for this EDT transplant procedure are i n the results section. LAVENDER TUBE HOLD STAT 03/15/2018 9:40 AM Kidney replaced by Results for this EDT transplant procedure are i n the results section. TACROLIMUS LEVEL STAT 03/15/2018 9:40 AM Kidney replaced by Results for this EDT transplant procedure are i n the results section. 1,25-DIHYDROXYCHOLECA STAT 03/15/2018 9:40 AM Kidney replac ed by Results for this LCIFEROL EDT transplant procedure are i n the results section. VITAMIN D, 25-HYDROXY STAT 03/15/2018 9:40 AM Kidney replac ed by Results for this EDT transplant procedure are i n the results section. RETICULOCYTE COUNT STAT 03/15/2018 9:40 AM Kidney replaced by Results for this EDT transplant procedure are i n the results section. CBC (WITH DIFF) STAT 03/15/2018 9:40 AM Kidney replaced by EDT transplant URIC ACID STAT 03/15/2018 9:40 AM Kidney replaced by Res ults for this EDT transplant procedure are i n the results section. PHOSPHORUS STAT 03/15/2018 9:40 AM Kidney replaced by Res ults for this EDT transplant procedure are i n the results section. MAGNESIUM STAT 03/15/2018 9:40 AM Kidney replaced by Res ults for this EDT transplant procedure are i n the results section. HEMOGLOBIN A1C STAT 03/15/2018 9:40 AM Kidney replaced by R esults for this EDT transplant procedure are i n the results section. LIPID PANEL (REFLEX STAT 03/15/2018 9:40 AM Kidney replaced by Results for this DIRECT LDL) EDT transplant procedure are i n the results section. documented in this encounter Results Urinalysis Microscopic Exam (03/15/2018 10:03 AM EDT) P athologist Signature RBC UA 3 0 - 3 /HPF [facility] WBC UA 2 0 - 3 /HPF [facility] Squam Epith UA <1 <=4 /HPF [facility] Specimen (Source) Anatomical Collection Method Collection Time Re ceived Time Location / / Volume Laterality Urine specimen 03/15/2018 10:03 8 obtained by clean AM EDT 10:13 AM E DT catch procedure (specimen) Resulting Agency Comment Spec In Lab Alejo Garnett MD URINE ORDERABLES Performing Organization Address City/State/[place] [address] (ABNORMAL) Urinalysis with reflex Culture (03/15/2018 10:03 AM EDT) Patholo gist Method Time Signature Glucose UA 150 (A) Negative [facility] mg/dL [facility] Protein UA 30 (A) Negative [facility] mg/dL [facility] Bilirubin UA Negative Negative [facility] mg/dL [facility] Comment: Clinical correlation required for positi ve Urine Bilirubin results as false positive may occur with some drugs and d rug related products. If a false positive is suspected a serum total bili reyna should be considered if clinically indicated. Urobilinogen UA Normal Normal mg/dL [facility] pH UA 5.0 5.0 - 8.0 [facility] Blood UA Negative Negative mg/dL [facility] Ketones UA Negative Negative mg/dL [facility] Nitrite UA Negative Negative [facility] Leukocytes UA Negative Negative [facility] LABORATORY Appearance UA Clear Clear [facility] Spec [place] UA 1.015 1.002 - 1.030 [facility] Color UA Yellow Yellow [facility] Culture Reflexed No [facility] Specimen (Source) Anatomical Collection Method Collection Time Re ceived Time Location / / Volume Laterality Urine specimen 03/15/2018 10:03 8 obtained by clean AM EDT 10:13 AM E DT catch procedure (specimen) Resulting Agency Comment Spec In Lab Alejo Garnett MD URINE ORDERABLES Performing Organization Address City/State/ZIP Code Phon e Number [address] (ABNORMAL) Protein/Creatinine Ratio, urine (03/15/2018 10:03 AM EDT) P athologist Signature U Creatinine 78 mg/dL [facility] U Protein Ran 37 (H) 0 - 12 [facility] mg/dL [facility] Prot/Cre Ratio 0.5 ratio [facility] Specimen Anatomical Collection Method Collection Time Receive d Time (Source) Location / / Volume Laterality Urine specimen 03/15/2018 10:03 8 (specimen) AM EDT 10:12 AM EDT Resulting Agency Comment Spec In Lab Alejo Garnett MD URINE ORDERABLES Performing Organization Address City/[facility]/ZIP Code Phon e Number [address] Phosphorus, urine, random (03/15/2018 10:03 AM EDT) P athologist Signature U Phosphorus 54.8 mg/dL [facility] Specimen Anatomical Collection Method Collection Time Receive d Time (Source) Location / / Volume Laterality Urine specimen 03/15/2018 10:03 8 (specimen) AM EDT 10:12 AM EDT Resulting Agency Comment Spec In Lab Alejo Garnett MD URINE ORDERABLES Performing Organization Address City/State/ZIP Code Phon e Number [address] BKV Quant Urine (03/15/2018 10:03 AM EDT) Component Value Ref Test Analysis Performed At Patholo gist Range Method Time Signature BKV Urine Not Detected SYLVIA Zazueta [facility] BKV Urine BK Virus Urine Result Interpretation SYLVIA Ramirez [facility] Result: BK Virus not detected HOSPITAL Specimen type: urine LABORATOR Y Assay Range: 2.80-7.80 log copies/mL (6.28x10^2 - 6.28x10^7 copies/mL) Methods: Quantitative real-time polymerase chain react ion (PCR) of viral DNA isolated from urine was performed using [employer] (formerly, [facility]) BKV analyte-specific reagents and the Applied DoubleUp 7 500 FAST Real-Time PCR System. In [...] and Advanc ed Technology (CGAT) Laboratory at [facility]. It has not been cleared or approved [...] / / Volume Laterality Urine specimen 03/15/2018 10: 8 2:23 (specimen) AM EDT PM EDT Resulting Agency Comment Spec In Lab Alejo Garnett MD MICROBIOLOGY - GENERAL ORDER STEPHANIE Performing Organization Address City/State/[place] [address] Creatinine, urine, random (03/15/2018 10:03 AM EDT) P athologist Signature U Creatinine 78 mg/dL [facility] Specimen Anatomical Collection Method Collection Time Receive d Time (Source) Location / / Volume Laterality Urine specimen 03/15/2018 10:03 8 (specimen) AM EDT 10:12 AM EDT Resulting Agency Comment Spec In Lab Alejo Garnett MD URINE ORDERABLES Performing Organization Address City/[facility]/ZIP Code Phon e Number [address] Calcium Creatinine Ratio, random urine (03/15/2018 10:03 AM EDT) P athologist Signature U Calcium 2.6 mg/dL [facility] U Creatinine 78 mg/dL [facility] Ca/Cre Ratio 0.03 ratio [facility] Specimen Anatomical Collection Method Collection Time Receive d Time (Source) Location / / Volume Laterality Urine specimen 03/15/2018 10:03 8 (specimen) AM EDT 10:12 AM EDT Resulting Agency Comment Spec In Lab Alejo Garnett MD URINE ORDERABLES Performing Organization Address City/[facility]/ZIP Code Phon e Number [address] U24 Hrs and Volume (03/15/2018 9:45 AM EDT) P athologist Signature Hours 24 hour(s) [facility] LABORATORY Urine TV (ml) 2,500 mL [facility] Specimen Anatomical Collection Method Collection Time Receive d Time (Source) Location / / Volume Laterality Urine specimen 03/15/2018 9:45 AM 018 (specimen) EDT 10:45 AM EDT Resulting Agency Comment Spec In Lab Alejo Garnett MD CHEMISTRY ORDERABLES Performing Organization Address City/[facility]/ZIP [place] [address] Uric acid, urine, 24 hour (03/15/2018 9:45 AM EDT) P athologist Signature U24 Uric Conc 18.2 mg/dL [facility] U24 Uric Calc 0.46 0.25 - [facility] 0.80 [facility] gm/24hr [facility] Specimen Anatomical Collection Method Collection Time Receive d Time (Source) Location / / Volume Laterality Urine specimen 03/15/2018 9:45 AM 018 (specimen) EDT 10:45 AM EDT Resulting Agency Comment Spec In Lab Alejo Garnett MD URINE ORDERABLES Performing Organization Address City/[facility]/ZIP [place] [address] (ABNORMAL) Protein, urine, 24 hour (03/15/2018 9:45 AM EDT) Analysis Performed At Patho logist Time Signature U24 Prot Conc 24 <=80 mg/dL [facility] U24 Prot Calc 0.60 (H) <=0.[address] LABORATORY Specimen Anatomical Collection Method Collection Time Receive d Time (Source) Location / / Volume Laterality Urine specimen 03/15/2018 9:45 AM 018 (specimen) EDT 10:45 AM EDT Resulting Agency Comment Spec In Lab Alejo Garnett MD URINE ORDERABLES Performing Organization Address City/[facility]/ZIP [place] [address] Phosphorus, urine, 24 hour (03/15/2018 9:45 AM EDT) P athologist Signature U24 Phos Conc 52.8 mg/dL [facility] U24 Phos Calc 1.3 0.4 - 1.[address] LABORATORY Specimen Anatomical Collection Method Collection Time Receive d Time (Source) Location / / Volume Laterality Urine specimen 03/15/2018 9:45 AM 018 (specimen) EDT 10:45 AM EDT Resulting Agency Comment Spec In Lab Alejo Garnett MD URINE ORDERABLES Performing Organization Address City/[facility]/ZIP [place] [address] (ABNORMAL) Creatinine, urine, 24 hour (03/15/2018 9:45 AM EDT) Analysis Performed At Patho logist Time Signature U24 Creat Conc 88 mg/dL [facility] U24 Creat Calc 2.20 (H) 0.80 - [facility] [address] LABORATORY Specimen Anatomical Collection Method Collection Time Receive d Time (Source) Location / / Volume Laterality Urine specimen 03/15/2018 9:45 AM 018 (specimen) EDT 10:45 AM EDT Resulting Agency Comment Spec In Lab Alejo Garnett MD URINE ORDERABLES Performing Organization Address City/State/ZIP [place] [address] (ABNORMAL) Creatinine Clearance, urine, 24 hour (03/15/2018 9:45 AM EDT) Analysis Performed At Patho logist Time Signature Creat 80 (L) 90 - 139 [facility] Clearance mL/min [facility] U24 Creat Conc 88 mg/dL [facility] U24 Creat Calc 2.20 (H) 0.80 - [facility] [address] LABORATORY Specimen Anatomical Collection Method Collection Time Receive d Time (Source) Location / / Volume Laterality Urine specimen 03/15/2018 9:45 AM 018 (specimen) EDT 10:45 AM EDT Resulting Agency Comment Spec In Lab Alejo Garnett MD URINE ORDERABLES Performing Organization Address City/[facility]/ZIP [place] [address] (ABNORMAL) Calcium, urine, 24 hour (03/15/2018 9:45 AM EDT) P athologist Signature U24 Ca Conc 1.2 mg/dL [facility] U24 Ca Calc 30.0 (L) 50.0 - [facility] [address] LABORATORY Comment: Reference Range: 50.0-300.0 mg/ 24 hour based on diet. Specimen Anatomical Collection Method Collection Time Receive d Time (Source) Location / / Volume Laterality Urine specimen 03/15/2018 9:45 AM 018 (specimen) EDT 10:45 AM EDT Resulting Agency Comment Spec In Lab Alejo Garnett MD URINE ORDERABLES Performing Organization Address City/State/[place] [address] Differential, Automated (03/15/2018 9:40 AM EDT) P athologist Signature Neutrophils % 59.2 % [facility] Neutr Abs (ANC) 4.21 1.70 - [facility] 6.10 [facility] x10(3)/[facility] LABORATORY Lymphocytes % 27.5 % [facility] Lymphocytes Abs 2.0 0.9 - 3.2 [facility] x10(3)/[facility] LABORATORY Monocytes % 9.0 % [facility] Monocyte Abs 0.6 0.3 - 0.9 [facility] x10(3)/[facility] LABORATORY Eosinophils % 3.2 % [facility] Eosinophils Abs 0.2 0.0 - 0.4 [facility] x10(3)/[facility] LABORATORY Basophils % 1.0 % [facility] Basophils Abs 0.1 0.0 - 0.1 [facility] x10(3)/[facility] LABORATORY Immature Gran % 0.10 % [facility] Comment: Immature granulocytes(IG's)percentage an d absolute count will include metamyelocytes, myelocytes, and promyelo cytes. Blood smears from CBCs yielding IG's will be scanned manually for concor dance. If this scan disagrees with the automated IG or if promyelocytes are not ed, a manual differential will be performed. Courtney Gran Abs 0.01 0.00 - 0.04 x10(3)/[facility]OR[facility]ORY Specimen Anatomical Collection Method Collection Time Receive d Time (Source) Location / / Volume Laterality Blood specimen 03/15/2018 9:40 AM 018 9:49 (specimen) EDT AM EDT Resulting Agency Comment Spec In Lab Alejo Garnett MD HEMATOLOGY ORDERABLES Performing Organization Address City/State/[place] [address] (ABNORMAL) Hemogram (03/15/2018 9:40 AM EDT) Analysis Performed At Patho logist Time Signature WBC 7.1 4.0 - 9.5 [facility] x10(3)/[facility] LABORATORY RBC 3.89 (L) 4.58 - [facility] 5.54 [facility] x10(6)/[facility] LABORATORY Hemoglobin 11.9 (L) 13.7 - [facility] 16.5 gm/dL [facility] Hematocrit 38.0 (L) 40.5 - [facility] 48.5 % [facility] MCV 97.7 (H) 82.9 - [facility] 93.1 [facility] LABORATORY MCH 30.6 27.5 - [facility] 32.1 pg [facility] MCHC 31.3 (L) 32.0 - [facility] 35.[facility] gm/dL [facility] Platelets 170 145 - 357 [facility] x10(3)/[facility] LABORATORY RDWSD 49.8 (H) 36.0 - [facility] 45.0 [facility] LABORATORY RDWCV 13.9 (H) 11.4 - [facility] 13.8 % [facility] MPV 8.6 7.6 - 12.9 [facility] LABORATORY nRBC % Auto 0.0 % [facility] nRBC Abs Auto 0.000 0.000 - [facility] 0.000 [facility] x10(3)/[facility] LABORATORY Specimen Anatomical Collection Method Collection Time Receive d Time (Source) Location / / Volume Laterality Blood specimen 03/15/2018 9:40 AM 018 9:49 (specimen) EDT AM EDT Resulting Agency Comment Spec In Lab Alejo Garnett MD HEMATOLOGY ORDERABLES Performing Organization Address City/State/[place] [address] Gold Tube HOLD (03/15/2018 9:40 AM EDT) P athologist Signature Gold Hold Sample in [facility] lab. [facility] Specimen Anatomical Collection Method Collection Time Receive d Time (Source) Location / / Volume Laterality Blood specimen 03/15/2018 9:40 AM 018 9:49 (specimen) EDT AM EDT Alejo Garnett MD CHEMISTRY ORDERABLES Performing Organization Address City/[facility]/ZIP Code Phon e Number [address] Lavender Tube HOLD (03/15/2018 9:40 AM EDT) Patholo gist Method Time Signature Lavender Hold Sample in [facility] lab. [facility] Specimen Anatomical Collection Method Collection Time Receive d Time (Source) Location / / Volume Laterality Blood specimen 03/15/2018 9:40 AM 018 9:49 (specimen) EDT AM EDT Alejo Garnett MD HEMATOLOGY ORDERABLES Performing Organization Address City/[facility]/ZIP Code Phon e Number [address] (ABNORMAL) Vitamin D, 25-Hydroxy (03/15/2018 9:40 AM EDT) P athologist Signature 25-OH Vit D 24 (L) 30 - 100 [facility] Total ng/mL [facility] Comment: Deficient <10 ng/mL Insufficient 10 to 29 ng/mL Sufficient 30 to 100 ng/mL Potential Intoxication >100 ng/mL According to the [place] National Osteoporosi s Foundation, Vitamin D concentrations >30 ng/mL are sufficient to protect bone health. ??The National Kidney Foundation has similarly stated that pat ients with Vitamin D concentrations <30ng/mL should be considered to be insu fficient or deficient. http://TrackR.Vaximm/nkf-guidelines http://TrackR.Vaximm/nejm-VitD [employer] Vitamin D Immunoassay detec [...] Garnett MD CHEMISTRY ORDERABLES Performing Organization Address City/[facility]/ZIP Code Phon e Number [address] Uric acid (03/15/2018 9:40 AM EDT) athologist Signature Uric Acid 7.8 3.5 - 8.5 [facility] mg/dL [facility] Specimen Anatomical Collection Method Collection Time Receive d Time (Source) Location / / Volume Laterality Blood specimen 03/15/2018 9:40 AM 018 9:49 (specimen) EDT AM EDT Resulting Agency Comment Spec In Lab Alejo Garnett MD CHEMISTRY ORDERABLES Performing Organization Address City/[facility] [place] [address] Tacrolimus level (03/15/2018 9:40 AM EDT) athologist [facility] Tacrolimus Lvl 7.0 ng/mL [facility] Comment: Trough therapeutic: ??5-15 ng/mL Performed by ultra-performance liquid ch romatography tandem mass spectrometry (UPLCMS/MS). This test was developed and its performa nce characteristics determined by [facility]. It has not been cleared [...] Comment Spec In Lab Alejo aGrnett MD CHEMISTRY ORDERABLES Performing Organization Address City/[facility] [place] [address] (ABNORMAL) Reticulocyte Count (03/15/2018 9:40 AM EDT) Patholo gist Method Time Signature Retic Ct % 3.0 (H) 0.7 - 2.6 [facility] % [facility] Retic Ct Abs 0.120 0.030 - [facility] 0.120 [facility] x10(6)/ HOSPITAL L LABORATORY Immature Retic% 21.8 (H) 0.0 - [facility] 15.6 % [facility] Reticulated Hgb 32.4 31.3 - [facility] 40.2 pg [facility] Specimen Anatomical Collection Method Collection Time Receive d Time (Source) Location / / Volume Laterality Blood specimen 03/15/2018 9:40 AM 018 9:49 (specimen) EDT AM EDT Resulting Agency Comment Spec In Lab Alejo Garnett MD HEMATOLOGY ORDERABLES Performing Organization Address City/[facility]/ZIP Code Phon e Number [address] (ABNORMAL) PTH (03/15/2018 9:40 AM EDT) P athologist Signature PTH 79 (H) 15 - 65 [facility] MELI pg/mL [facility] Specimen Anatomical Collection Method Collection Time Receive d Time (Source) Location / / Volume Laterality Blood specimen 03/15/2018 9:40 AM 018 9:49 (specimen) EDT AM EDT Resulting Agency Comment Spec In Lab Alejo Garnett MD CHEMISTRY ORDERABLES Performing Organization Address City/[facility]/ZIP Code Phon e Number [address] Phosphorus (03/15/2018 9:40 AM EDT) P athologist Signature Phosphorus 3.4 2.5 - 4.5 [facility] MELI mg/dL [facility] [facility] Specimen Anatomical Collection Method Collection Time Receive d Time (Source) Location / / Volume Laterality Blood specimen 03/15/2018 9:40 AM 018 9:49 (specimen) EDT AM EDT Resulting Agency Comment Spec In Lab Alejo Garnett MD CHEMISTRY ORDERABLES Performing Organization Address City/[facility]/ZIP [place] [address] (ABNORMAL) Magnesium (03/15/2018 9:40 AM EDT) P athologist Signature Magnesium 0.59 (L) 0.69 - 1.07 [facility] MELI mmol/L [facility] Specimen Anatomical Collection Method Collection Time Receive d Time (Source) Location / / Volume Laterality Blood specimen 03/15/2018 9:40 AM 018 9:49 (specimen) EDT AM EDT Resulting Agency Comment Spec In Lab Alejo Garnett MD CHEMISTRY ORDERABLES Performing Organization Address City/State/[place] [address] Lipid Panel (03/15/2018 9:40 AM EDT) P athologist Signature Chol, Total 96 mg/dL [facility] Comment: Lower Risk: <200 mg/dL Average Risk: 200-239 mg/dL Higher Risk: >yr=783 mg/dL Triglycerides 235 mg/dL [facility] Comment: Average Risk/Lower Risk: <150 mg/dL Borderline High Risk: 150-199 mg/dL High Risk: 200-499 mg/dL Very High Risk: >yv=960 mg/dL HDL 22 mg/dL [facility] Comment: Males: ?? Higher Risk: <40 mg/dL Females: ?? HIgher Risk: <50 mg/dL LDL Cholesterol 27 mg/dL [facility] Comment: Lowest Risk: <100 mg/dL Lower Risk: 100-129 mg/dL Borderline High Risk: 130-159 mg/dL High Risk: 160-189 mg/dL Very High Risk: >zb=752 mg/dL Chol/HDL Ratio 4.4 ratio [facility] Lipid Interpretation See Note [facility] Comment: Lipid management should be guided by a p atient? s ASCVD risk, goals and preferences. ACC/AHA Guidelines recommend high intens ity statin if clinical ASCVD or LDL greater than or equal to 190 mg/dL. http://Snipiurl.com/QUW-RXG-Wagejbglq Adults aged 40-75 with LDL 70-189 mg/dL should have their 10 year ASCVD risk estimated with the ACC/AHA ASCVD risk es timator http://tools.acc.org/DLVZL-Ogpu-Yniifzwe r/ Statin should be discussed if risk [...] Address City/State/[place] [address] (ABNORMAL) Hemoglobin A1c (03/15/2018 9:40 AM EDT) Analysis Performed At Patho logist Time Signature Hemoglobin A1C 8.8 (H) 4.3 - 5.6 [facility] Comment: Reference Range: 4.3 [...] Mellitus, Diabetes Care 2013; 36: Suppl. 1, R32-97 Est Avg Gluc 206 mg/dL [facility] Comment: [...] Additional resources are available on [facility] website. Scooyb MALDONADO, Nba J, Sydnee R, et al. ??Tr anslating the A1C assay into estimated average glucose values. ??Diabetes Care 2008:31(8):6947-2297. Specimen Anatomical Collection Method Collection Time Receive d Time (Source) Location / / Volume Laterality Blood specimen 03/15/2018 9:40 AM 018 9:49 (specimen) EDT AM EDT Resulting Agency Comment Spec In Lab Alejo Garnett MD CHEMISTRY ORDERABLES Performing Organization Address City/State/ZIP [place] [address] (ABNORMAL) CMP w/fasting Glucose (03/15/2018 9:40 AM EDT) athologist Signature Glucose 248 (H) 65 - 99 [facility] Fasting mg/dL [facility] Comment: ?Fasting* Glucose Interpretive C riteria Normal ?65-99 mg/dL Impaired Fasting glucose ?100-125 mg/dL Consistent with Diabetes Mellitus ? >or= 126 mg/dL *Fasting is defined as no caloric intake for at least 8 hours In the absence of unequivocal hypergly cemia a plasma glucose value of >or= 126 mg/dL should be repeated on a subseq uent day. Diagnosis and Classification of Diabetes Mellitus, Position Statement from the [place] [employer]. ??Diabete s Care, Volume 33, Supplement 1, Jul 2009 BUN 30 (H) 10 - 20 mg/dL [facility] Creatinine 1.90 (H) 0.80 - 1.50 mg/dL [facility] Sodium 139 135 - 145 mmol/L [facility] Potassium 4.9 3.5 - 5.0 mmol/L [facility] Comment: Please note: ??Patients with WBC >100,00 0 may have falsely elevated Potassium levels. ??For accurate Potassium quantif ication in these patients send serum separator tube (gold top) for subsequent determinations. ??Contact the Clinical Chemistry Laboratory if there are any qu estions. Chloride 107 98 - 107 mmol/L [facility] CO2 21 (L) 22 - 31 mmol/L [facility] Anion Gap 11 5 - 15 mmol/L [facility] Calcium 9.2 8.5 - 10.5 mg/dL [facility] Total Protein 8.0 6.1 - 8.0 gm/dL [facility] Albumin 3.5 3.2 - 5.2 gm/dL [facility] AST 22 0 - 39 unit/L [facility] ALT 25 0 - 55 unit/L [facility] Alk Phos 153 (H) 40 - 120 unit/L [facility] Total Bilirubin 0.5 0.2 - 1.3 mg/dL [facility] Estimated GFR 36 (L) >=60 mL/min/1.73 m?? [facility] Comment: The eGFR was calculated using the CKD-EP I equation. As with all creatinine based estimates of kidney function, eGFR values calculated with the CKD-EPI equation are not accurate in patients wi th acute kidney failure, extremes of body mass or the acutely ill. [email or web address] [email or web address] eGFR 42 (L) >=60 mL/min/1.73 m?? [facility] Comment: The eGFR was calculated using the CKD-EP I equation. As with all creatinine based estimates of kidney function, eGFR values calculated with the CKD-EPI equation are not accurate in patients wi th acute kidney failure, extremes of body mass or the acutely ill. [email or web address] [email or web address] Specimen Anatomical Collection Method Collection Time Receive d Time (Source) Location / / Volume Laterality Blood specimen 03/15/2018 9:40 AM 018 9:49 (specimen) EDT AM EDT Resulting Agency Comment Spec In Lab Alejo Garnett MD CHEMISTRY ORDERABLES Performing Organization Address City/[facility]/[place] [address] 1,25-dihydroxycholecalciferol (03/15/2018 9:40 AM EDT) athologist Signature Vit D 18 - 64 [facility] pg/mL [facility] Comment: ADDITIONAL INFORMATIO N This test was developed and its performa nce characteristics determined by [facility] in a manner co nsistent with CLIA requirements. This test has not been carlos ared or approved by the U.S. Food and Drug Administration. Test Performed by: [facility] [address] [place], [place] [address] Specimen Anatomical Collection Method Collection Time Receive d Time (Source) Location / / Volume Laterality Blood specimen 03/15/2018 9:40 AM 018 (specimen) EDT 11:16 AM EDT Resulting Agency Comment Spec In Lab Alejo Garnett MD CHEMISTRY ORDERABLES Performing Organization Address City/[facility]/[place] [address] documented in this encounter Visit Diagnoses Diagnosis Kidney replaced by transplant documented in this encounter Care Teams Combination Worker Relationship Specialty Start Date End Date Violetta Sanford MD PCP - General 04/02/14 [address] [place] [address] documented as of this encounter
--- OUTSIDE RECORDS SUMMARY | 2022-05-24 10:53 | XMS_ITS | Encounter Summary ---
:1955 Author Organization [facility] [place] [address] Care Team Providers Name Role Phone Violetta Sanford MD Primary Care Provider Encounter Details Date Type Department Care Team Description 02/11/2017 [place] [facility] [place] [phone] Social History Tobacco Use Types Packs/Day [...] this encounter Miscellaneous Notes Telephone Encounter - Abdiel Marcelino MSW - 02/11/2017 8:51 AM EDT SW called pt and spoke to his spouse. SW explained that the team was still working on his medicationissue but the pharmacy has agreed to give pt 5 days worth of medications until a more permanent solution can be found. Spouse expressed that they were not sure that pt will be able to drive to pharmacyto pick them up as its 100 [place] away. Pt had requested that pharmacy be used specifically. documented in this encounter Plan of Treatment Upcoming Encounters Date Type Specialty Care Team Description 05/26/2022 Office Visit Otolaryngology Ricardo Panda PA [facility] [address] [place] [address] (Wo rk) 06/02/2022 Infusion Hematology and Oncology 06/16/2022 Infusion Hematology and Oncology 06/21/2022 Office Visit Neurology Tyler Rojas MD [facility] Neurology [place], [place] [phone] (Wo rk) 06/30/2022 Infusion Hematology and Oncology 07/14/2022 Infusion Hematology and Oncology 07/28/2022 Infusion Hematology and Oncology 08/11/2022 Infusion Hematology and Oncology 11/04/2022 Office Visit Rheumatology Dante Freedman PA [facility] [place] [address] (Wo rk) documented as of this encounter Visit Diagnoses Not on filedocumented in this encounter Care Teams C Java Developer Relationship Specialty Start Date End Date Violetta Sanford MD PCP - General 04/02/14 [address] [place] [address] documented as of this encounter
--- OUTSIDE RECORDS SUMMARY | 2022-05-24 10:53 | XMS_ITS | Encounter Summary ---
:1955 Author Organization [facility] [place] [address] Care Team Providers Name Role Phone Violetta Sanford MD Primary Care Provider Encounter Details Date Type Department Care Team Description 02/28/2017 Laboratory Appointment Lab 3L Jere Cooper Kidney replaced by [facility] [id number] Social History Tobacco Use Types Packs/Day Years [...] Ricardo Panda PA [facility] er [address] [place] [address] (Wo rk) 06/02/2022 Infusion Hematology and Oncology 06/16/2022 Infusion Hematology and Oncology 06/21/2022 Office Visit Neurology Tyler Rojas MD [facility] er Dr [place], [place] [phone] (Wo rk) 06/30/2022 Infusion Hematology and Oncology 07/14/2022 Infusion Hematology and Oncology 07/28/2022 Infusion Hematology and Oncology 08/11/2022 Infusion Hematology and Oncology 11/04/2022 Office Visit Rheumatology Dante Freedman PA [facility] [address] [place], [place] [address] (Wo rk) documented as of this encounter Procedures Procedure Name Priority Date/Time Associated Comments Diagnosis PROTEIN/CREATININE STAT 02/28/2017 10:13 Kidney replaced by Results for this RATIO, URINE AM EDT transplant procedure are i n the results section. URINALYSIS WITH REFLEX STAT 02/28/2017 10:13 Kidney replace d by Results for this CULTURE AM EDT transplant procedure are i n the results section. HEMOGRAM STAT 02/28/2017 10:05 Kidney replaced by Resul ts for this AM EDT transplant procedure are i n the results section. DIFFERENTIAL, STAT 02/28/2017 10:05 Kidney replaced by Resu lts for this AUTOMATED AM EDT transplant procedure are i n the results section. GOLD TUBE HOLD STAT 02/28/2017 10:05 Kidney replaced by Res ults for this AM EDT transplant procedure are i n the results section. LAVENDER TUBE HOLD STAT 02/28/2017 10:05 Kidney replaced by Results for this AM EDT transplant procedure are i n the results section. TACROLIMUS LEVEL STAT 02/28/2017 10:05 Kidney replaced by R esults for this AM EDT transplant procedure are i n the results section. RETICULOCYTE COUNT STAT 02/28/2017 10:05 Kidney replaced by Results for this AM EDT transplant procedure are i n the results section. CBC (WITH DIFF) STAT 02/28/2017 10:05 Kidney replaced by AM EDT transplant URIC ACID STAT 02/28/2017 10:05 Kidney replaced by Resul ts for this AM EDT transplant procedure are i n the results section. PHOSPHORUS STAT 02/28/2017 10:05 Kidney replaced by Resul ts for this AM EDT transplant procedure are i n the results section. MAGNESIUM STAT 02/28/2017 10:05 Kidney replaced by Resul ts for this AM EDT transplant procedure are i n the results section. CHOLESTEROL, TOTAL STAT 02/28/2017 10:05 Kidney replaced by Results for this AM EDT transplant procedure are i n the results section. COMPREHENSIVE STAT 02/28/2017 10:05 Kidney replaced by Resu lts for this METABOLIC PANEL AM EDT transplant procedure ar e in (NON-FASTING) the results section. U24 HRS AND VOLUME Routine 02/28/2017 9:00 AM Res ults for this EDT procedure are i n the results section. CALCIUM, URINE, 24 Routine 02/28/2017 9:00 AM Kidney replaced by Results for this HOUR EDT transplant procedure are i n the results section. CREATININE, URINE, 24 Routine 02/28/2017 9:00 AM Kidney replac ed by Results for this HOUR EDT transplant procedure are i n the results section. PROTEIN, URINE, 24 Routine 02/28/2017 9:00 AM Kidney replaced by Results for this HOUR EDT transplant procedure are i n the results section. PHOSPHORUS, URINE, 24 Routine 02/28/2017 9:00 AM Kidney replac ed by Results for this HOUR EDT transplant procedure are i n the results section. documented in this encounter Results (ABNORMAL) Urinalysis with reflex Culture (02/28/2017 10:13 AM EDT) [facility] Method Time Signature Glucose UA >=500 Negative [facility] (Critical) mg/dL [facility] Comment: Urinalysis result NOT critical without a combination of Glucose greater than or equal to 500mg/dl AND Ketones greater th an or equal to 80mg/dl. Protein UA 30 (A) Negative mg/dL [facility] Bilirubin UA Negative Negative mg/dL [facility] Comment: Clinical correlation required for positi ve Urine Bilirubin results as false positive may occur with some drugs and d rug related products. If a false positive is suspected a serum total bili reyna should be considered if clinically indicated. Urobilinogen UA Normal Normal mg/dL [facility] pH UA 5.0 5.0 - 8.0 [facility] Blood UA Negative Negative mg/dL [facility] Ketones UA Negative Negative mg/dL [facility] Nitrite UA Negative Negative [facility] Leukocytes UA Negative Negative [facility] LABORATORY Appearance UA Clear Clear [facility] Spec [place] UA 1.013 1.002 - 1.030 [facility] Color UA Yellow Yellow [facility] RBC UA 1 0 - 3 /HPF [facility] WBC UA 1 0 - 3 /HPF [facility] Squam Epith UA <1 <=4 /HPF [facility] Culture Reflexed No [facility] Specimen (Source) Anatomical Collection Method Collection Time Re ceived Time Location / / Volume Laterality Urine specimen 02/28/2017 10:13 7 obtained by clean AM EDT 10:23 AM E DT catch procedure (specimen) Resulting Agency Comment Spec In Lab Alejo Garnett MD URINE ORDERABLES Performing Organization Address City/[facility] [address]/[facility] Phon e Number [address] (ABNORMAL) Protein/Creatinine Ratio, urine (02/28/2017 10:13 AM EDT) P athologist Signature U Creatinine 89 mg/dL [facility] U Protein Ran 35 (H) 0 - 12 [facility] mg/dL [facility] Prot/Cre Ratio 0.4 ratio [facility] Specimen Anatomical Collection Method Collection Time Receive d Time (Source) Location / / Volume Laterality Urine specimen 02/28/2017 10:13 7 (specimen) AM EDT 10:23 AM EDT Resulting Agency Comment Spec In Lab Alejo Garnett MD URINE ORDERABLES Performing Organization Address City/[facility] [address]/ZIP Code Phon e Number [address] Differential, Automated (02/28/2017 10:05 AM EDT) P athologist Signature Neutrophils % 58.8 % [facility] Neutr Abs (ANC) 4.20 1.70 - [facility] 6.10 [facility] x10(3)/[facility] LABORATORY Lymphocytes % 27.5 % [facility] Lymphocytes Abs 2.0 0.9 - 3.2 [facility] x10(3)/[facility] LABORATORY Monocytes % 8.8 % [facility] Monocyte Abs 0.6 0.3 - 0.9 [facility] x10(3)/[facility] LABORATORY Eosinophils % 3.5 % [facility] Eosinophils Abs 0.2 0.0 - 0.4 [facility] x10(3)/[facility] LABORATORY Basophils % 0.8 % [facility] Basophils Abs 0.1 0.0 - 0.1 [facility] x10(3)/[facility] LABORATORY Immature Gran % 0.60 % [facility] Comment: Immature granulocytes(IG's)percentage an d absolute count will include metamyelocytes, myelocytes, and promyelo cytes. Blood smears from CBCs yielding IG's will be scanned manually for concor dance. If this scan disagrees with the automated IG or if promyelocytes are not ed, a manual differential will be performed. Courtney Gran Abs 0.04 0.00 - 0.04 x10(3)/[facility] Specimen Anatomical Collection Method Collection Time Receive d Time (Source) Location / / Volume Laterality Blood specimen 02/28/2017 10:05 7 (specimen) AM EDT 10:13 AM EDT Resulting Agency Comment Spec In Lab Alejo Garnett MD HEMATOLOGY ORDERABLES Performing Organization Address City/State/[place] [address] (ABNORMAL) Hemogram (02/28/2017 10:05 AM EDT) Analysis Performed At Patho logist Time Signature WBC 7.1 4.0 - 9.5 [facility] x10(3)/[facility] LABORATORY RBC 4.05 (L) 4.58 - [facility] 5[facility]54 [facility] x10(6)/[facility] LABORATORY Hemoglobin 12.5 (L) 13.7 - [facility] 16.5 gm/dL [facility] Hematocrit 38.7 (L) 40.5 - [facility] 48.5 % [facility] MCV 95.6 (H) 82.9 - [facility] 93.1 [facility] LABORATORY MCH 30.9 27.5 - [facility] 32.1 pg [facility] MCHC 32.3 32.0 - JERE MELI 35.7 gm/dL [facility] Platelets 182 145 - 357 [facility] x10(3)/[facility] LABORATORY RDWSD 48.3 (H) 36.0 - [facility] 45.0 [facility] LABORATORY RDWCV 13.9 (H) 11.4 - [facility] 13.8 % [facility]ORY MPV 8.9 7.6 - 12.9 [facility] LABORATORY nRBC % Auto 0.0 % [facility] nRBC Abs Auto 0.000 0.000 - [facility] 0.000 [facility] x10(3)/[facility] LABORATORY Specimen Anatomical Collection Method Collection Time Receive d Time (Source) Location / / Volume Laterality Blood specimen 02/28/2017 10:05 7 (specimen) AM EDT 10:13 AM EDT Resulting Agency Comment Spec In Lab Alejo Garnett MD HEMATOLOGY ORDERABLES Performing Organization Address City/State/ZIP Code Phon e Number [address] Gold Tube HOLD (02/28/2017 10:05 AM EDT) P athologist Signature Gold Hold Sample in [facility] Specimen Anatomical Collection Method Collection Time Receive d Time (Source) Location / / Volume Laterality Blood specimen 02/28/2017 10:05 7 (specimen) AM EDT 10:13 AM EDT Alejo Garnett MD CHEMISTRY ORDERABLES Performing Organization Address City/State/ZIP Code Phon e Number [address] Lavender Tube HOLD (02/28/2017 10:05 AM EDT) Patholo gist Method Time Signature Lavender Hold Sample in [facility] LABORATORY Specimen Anatomical Collection Method Collection Time Receive d Time (Source) Location / / Volume Laterality Blood specimen 02/28/2017 10:05 7 (specimen) AM EDT 10:13 AM EDT Alejo Garnett MD HEMATOLOGY ORDERABLES Performing Organization Address City/[facility] [address]/ZIP Code Phon e Number [address] (ABNORMAL) Uric acid (02/28/2017 10:05 AM EDT) P athologist Signature Uric Acid 9.1 (H) 3.5 - 8.5 [facility] MELI mg/dL [facility] Specimen Anatomical Collection Method Collection Time Receive d Time (Source) Location / / Volume Laterality Blood specimen 02/28/2017 10:05 201 7 (specimen) AM EDT 10:13 AM EDT Resulting Agency Comment Spec In Lab Alejo Garnett MD CHEMISTRY ORDERABLES Performing Organization Address [facility] [address]/[facility] Phon e Number [address] Tacrolimus level (02/28/2017 10:05 AM EDT) athologist Signature Tacrolimus Lvl 5.9 ng/mL [facility] Comment: Trough therapeutic: ??5-15 ng/mL Performed by ultra-performance liquid ch romatography tandem mass spectrometry (UPLCMS/MS). This test was developed and its performa nce characteristics determined by [facility]. It has not been cleared or approved by the FDA. The laboratory is regulated under CLIA a s qualified to perform high-complexity testing. This test is used for clinical purposes. It should not be regarded as investigational or for research. Specimen Anatomical Collection Method Collection Time Receive d Time (Source) Location / / Volume Laterality Blood specimen 02/28/2017 10:05 201 7 (specimen) AM EDT 11:13 AM EDT Resulting Agency Comment Spec In Lab Alejo Garnett MD CHEMISTRY ORDERABLES Performing Organization Address City/[facility] [address]/[facility] [place] [address] (ABNORMAL) Reticulocyte Count (02/28/2017 10:05 AM EDT) Patholo gist Method Time Signature Retic Ct % 3.4 (H) 0.7 - 2.6 JERE CUEVASMELI % [facility] LABORATORY Retic Ct Abs 0.140 (H) 0.030 - [facility] 0.120 [facility] x10(6)/[facility] L LABORATORY Immature Retic% 21.7 (H) 0.0 - [facility] MELI 15.6 % [facility] Reticulated Hgb 33.9 31.3 - [facility] 40.2 pg [facility] Specimen Anatomical Collection Method Collection Time Receive d Time (Source) Location / / Volume Laterality Blood specimen 02/28/2017 10:05 7 (specimen) AM EDT 10:13 AM EDT Resulting Agency Comment Spec In Lab Alejo Garnett MD HEMATOLOGY ORDERABLES Performing Organization Address City/[facility] [address]/ZIP Code Phon e Number [address] Phosphorus (02/28/2017 10:05 AM EDT) P athologist Signature Phosphorus 3.2 2.5 - 4.5 [facility] mg/dL [facility] Specimen Anatomical Collection Method Collection Time Receive d Time (Source) Location / / Volume Laterality Blood specimen 02/28/2017 10:05 7 (specimen) AM EDT 10:13 AM EDT Resulting Agency Comment Spec In Lab Alejo Garnett MD CHEMISTRY ORDERABLES Performing Organization Address City/[facility] [address]/ZIP Code Phon e Number [address] Magnesium (02/28/2017 10:05 AM EDT) P athologist Signature Magnesium 0.72 0.69 - 1.07 JERE COOPER mmol/L [facility] Specimen Anatomical Collection Method Collection Time Receive d Time (Source) Location / / Volume Laterality Blood specimen 02/28/2017 10:05 7 (specimen) AM EDT 10:13 AM EDT Resulting Agency Comment Spec In Lab Alejo Garnett MD CHEMISTRY ORDERABLES Performing Organization Address City/[facility] [address]/[place] [address] (ABNORMAL) Comprehensive metabolic panel (non-fasting) (02/28/2017 10:05 AM EDT) athologist Signature Glucose Lvl 305 (H) 65 - 199 [facility] mg/dL [facility] Comment: Diabetes: >=200 mg/dL plus symp toms BUN 32 (H) 10 - 20 mg/dL [facility] Creatinine 1.91 (H) 0.80 - 1.50 mg/dL [facility] Comment: Please note that the pediatric reference intervals supplied above were not validated at [facility]. Results from pediatri c patients should be interpreted in conjunction to the patient's age, height and muscle mass. Sodium 137 135 - 145 mmol/L [facility] Potassium 4.9 3.5 - 5.0 mmol/L [facility] Comment: Please note: ??Patients with WBC >100,00 0 may have falsely elevated Potassium levels. ??For accurate Potassium quantif ication in these patients send serum separator tube (gold top) for subsequent determinations. ??Contact the Clinical Chemistry Laboratory if there are any qu estions. Chloride 102 98 - 107 mmol/L [facility] CO2 22 22 - 31 mmol/L [facility] Anion Gap 13 5 - 15 mmol/L [facility] Calcium 9.6 8.5 - 10.5 mg/dL [facility] Total Protein 8.0 6.1 - 8.0 gm/dL [facility] Albumin 3.4 3.2 - 5.2 gm/dL [facility] AST 16 0 - 39 unit/L [facility] ALT 21 0 - 55 unit/L [facility] Alk Phos 146 (H) 40 - 120 unit/L [facility] Total Bilirubin 0.5 0.2 - 1.3 mg/dL [facility] Estimated GFR 36 (L) >=60 [facility] Comment: This estimated GFR (eGFR) value [...] the following links into your internet browser. http://Uniplaces/DHnkdep http://Uniplaces/DHMCnkf Specimen Anatomical Collection Method Collection Time Receive d Time (Source) Location / / Volume Laterality Blood specimen 02/28/2017 10:05 7 (specimen) AM EDT 10:13 AM EDT Resulting Agency Comment Spec In Lab Alejo Garnett MD CHEMISTRY ORDERABLES Performing Organization Address City/State/ZIP Code [place] [address] Cholesterol, total (02/28/2017 10:05 AM EDT) [facility] gist Method Time Signature Chol, Total 103 <=239 JERE mg/dL [facility] Lipid See Note JERE Interpretation [facility] Comment: Lipid management should be guided by a p atient? s ASCVD risk, goals and preferences. ACC/AHA Guidelines recommend high intens ity statin if clinical ASCVD or LDL greater than or equal to 190 mg/dL. http://Uniplaces/XSP-FUZ-Gcdocewxa Adults aged 40-75 with LDL 70-189 mg/dL should have their 10 year ASCVD risk estimated with the ACC/AHA ASCVD risk es timator http://tools.acc.org/EHZZK-Iqyl-Eqzxmwxw r/ Statin should be discussed if risk [...] Garnett MD CHEMISTRY ORDERABLES Performing Organization Address City/[facility] [address]/ZIP Code Phon e Number [address] U24 Hrs and Volume (02/28/2017 9:00 AM EDT) P athologist Signature Hours 24 hour(s) [facility] LABORATORY Urine TV (ml) 2,050 mL [facility] Specimen Anatomical Collection Method Collection Time Receive d Time (Source) Location / / Volume Laterality Urine specimen 02/28/2017 9:00 AM 017 (specimen) EDT 11:38 AM EDT Resulting Agency Comment Spec In Lab Alejo Garnett MD CHEMISTRY ORDERABLES Performing Organization Address City/[facility] [address]/ZIP Code Phon e Number [address] (ABNORMAL) Protein, urine, 24 hour (02/28/2017 9:00 AM EDT) Analysis Performed At Patho logist Time Signature U24 Prot Conc 30 <=80 mg/dL [facility] U24 Prot Calc 0.62 (H) <=0.15 [facility] gm/24hr [facility] Specimen Anatomical Collection Method Collection Time Receive d Time (Source) Location / / Volume Laterality Urine specimen 02/28/2017 9:00 AM 017 (specimen) EDT 11:38 AM EDT Resulting Agency Comment Spec In Lab Alejo Garnett MD URINE ORDERABLES Performing Organization Address City/[facility] [address]/ZIP Code Phon e Number [address] Phosphorus, urine, 24 hour (02/28/2017 9:00 AM EDT) P athologist Signature U24 Phos Conc 41.5 mg/dL [facility] U24 Phos Calc 0.9 0.4 - 1.3 [facility] gm/24hr [facility] Specimen Anatomical Collection Method Collection Time Receive d Time (Source) Location / / Volume Laterality Urine specimen 02/28/2017 9:00 AM 017 (specimen) EDT 11:38 AM EDT Resulting Agency Comment Spec In Lab Alejo Garnett MD URINE ORDERABLES Performing Organization Address City/[facility] [address]/[place] [address] (ABNORMAL) Calcium, urine, 24 hour (02/28/2017 9:00 AM EDT) P athologist Signature U24 Ca Conc 1.4 mg/dL [facility] U24 Ca Calc 28.7 (L) 50.0 - [facility] 300.0 [facility] mg/24hr [facility] Comment: Reference Range: 50.0-300.0 mg/ 24 hour based on diet. Specimen Anatomical Collection Method Collection Time Receive d Time (Source) Location / / Volume Laterality Urine specimen 02/28/2017 9:00 AM 017 (specimen) EDT 11:38 AM EDT Resulting Agency Comment Spec In Lab Alejo Garnett MD URINE ORDERABLES Performing Organization Address City/[facility] [address]/[place] [address] Creatinine, urine, 24 hour (02/28/2017 9:00 AM EDT) P athologist Signature U24 Creat Conc 80 mg/dL [facility] U24 Creat Calc 1.64 0.80 - [facility] 1.90 [facility] gm/24hr [facility] Specimen Anatomical Collection Method Collection Time Receive d Time (Source) Location / / Volume Laterality Urine specimen 02/28/2017 9:00 AM 017 (specimen) EDT 11:38 AM EDT Resulting Agency Comment Spec In Lab Alejo Garnett MD URINE ORDERABLES Performing Organization Address City/[facility] [address]/ZIP [facility] [place] [address] documented in this encounter Visit Diagnoses Diagnosis Kidney replaced by transplant documented in this encounter Care Teams Hiv Prevention Specialist Relationship Specialty Start Date End Date Violetta Sanford MD PCP - General 04/02/14 [address] [place] [address] documented as of this encounter
--- OUTSIDE RECORDS SUMMARY | 2022-05-24 10:53 | XMS_ITS | Encounter Summary ---
:1955 Author Organization [facility] [place] [address] Care Team Providers Name Role Phone Violetta Sanford MD Primary Care Provider Encounter Details Date Type Department Care Team Description 01/11/2017 Notes Only Solid Organ Transpla nt at [facility] [place] [address] Social History Tobacco Use Types Packs/Day [...] this encounter Progress Notes Awa Calderon - 01/11/2017 10:35 AM EDT Leroy Torres [address] [place] [id number] January 11, 2017 ID: [id number] PRIOR AUTH Review for Prograf: On behalf of our patient we are requesting Brand Name Prograf for immunosuppression post Organ Transplant, and not the generic equivalent. It is critical that a patient be maintained on a consistent blood level of Prograf on a daily basis, to prevent rejection of the transplanted organ. Due to the variability of drug constitution between BRAND Prograf and the many different generic equivalent medications, the possibility of not being able to maintain a consistent drug level exists. This, in turn, raises questions as to whether or not the patient is adequately immunosuppressed. Since the generic version of Prograf is relatively new to the market, we do not have adequate data, as of yet, to demonstrate that the generic form has equivalent performance to brand Prograf. This patient has been maintained on Brand Name Prograf since their Kidney transplant on 02/29/08. Our patients are kept on the absolute lowest necessary dose of Prograf based on blood levels taken either monthly or at 3 month intervals. Switching to generic is risky due to multiple generics available, and 15% variability allowed by the FDA. Because there is no guarantee that a patient???s pharmacy will be diligent in maintaining the patient on the same nail technician of Tacrolimus, or that the patient will be able to have any control over which nail technician of Tacrolimus is purchased by their pharmacy, the patient is at increased risk of rejection. Brand Prograf is the safest insurance against potential organ rejection due to inadequate immunosuppression. All patients that are required by their insurance plan to switch to generic Prograf must have weeklyblood-work indefinitely, to ensure adequate levels in the blood. We have discovered that the majority of patients switching to generic Tacrolimus have had to increase dosing. Increased dosing and additional lab testing needed will certainly offset savings anticipated by switching to generic. Additionally, should the patient have transplanted organ rejection due to inadequate immunosuppression, dialysis is a very expensive alternative. Sincerely, Alejo Garnett M.D. Director of Medical Transplantation [facility] Nicky Pyle CMA - 01/11/2017 10:35 AM EDT Received faxed request from [email or web address] requesting further information. I printed the previous progress note, completed the paperwork and faxed back to [phone] Nicky Gallagher CMA - 01/11/2017 10:35 AM EDT APPROVED UNDER PART B THROUGH 07/24/2017 documented in this encounter Plan of Treatment Upcoming Encounters Date Type Specialty Care Team Description 05/26/2022 Office Visit Otolaryngology Ricardo Panda PA [facility] Dr [place], [place] [address] (Wo rk) 06/02/2022 Infusion Hematology and Oncology 06/16/2022 Infusion Hematology and Oncology 06/21/2022 Office Visit Neurology Tyler Rojas MD [facility] Neurology [place], [place] [phone] (Wo rk) 06/30/2022 Infusion Hematology and Oncology 07/14/2022 Infusion Hematology and Oncology 07/28/2022 Infusion Hematology and Oncology 08/11/2022 Infusion Hematology and Oncology 11/04/2022 Office Visit Rheumatology Dante Freedman PA [facility] RHEUMATOLOGY [place], [place] [address] (Wo rk) documented as of this encounter Visit Diagnoses Not on filedocumented in this encounter Care Teams Medical Sonographer Relationship Specialty Start Date End Date Violetta Sanford MD PCP - General 04/02/14 [facility] [address] [place] [address] documented as of this encounter
--- OUTSIDE RECORDS SUMMARY | 2022-05-24 10:53 | XMS_ITS | Encounter Summary ---
:1955 Author Organization [place] [address] Care Team Providers Name Role Phone Violetta Sanford MD Primary Care Provider Encounter Details Date Type Department Care Team Description 06/14/2017 Office Visit Endocrinology at [facility] Donell Hernandez, Type 2 diabetes mellitus wit h complication, with long-term current use of insulin; [facility] Adult BMI 40.0-44.9 kg/sq m; [facility] CKD (chronic kidney disease) stage 3, GFR 30-59 ml/min; [place] [address] [place] [address] Weight loss [phone] END[address] DEPT. [place], [place] [address] Social History Tobacco Use Types [...] Sign Reading Time Taken Comments Blood Pressure 153/62 06/14/2017 11:13 AM EST Pulse 76 06/14/2017 11:13 AM EST Temperature - - Respiratory Rate - - Oxygen Saturation - - Inhaled Oxygen Concentration - - Weight 145.2 kg (320 lb) 06/14/2017 11:13 AM EST Height 191.8 cm (6' 3.5) 06/14/2017 11:13 AM EST Body Mass Index 39.47 06/14/2017 11:13 AM EST documented in this encounter Progress Notes Donell Hernandez MD - 06/14/2017 11:00 AM EST Year of diagnosis: Regimen [...] bilateral bka R and morbid obesity. From 1) type 2 diabetes- his diabetes control has deteriorated significantly since he was last seen. He is continuing to try to be careful by carbohydrates in his diet and knows he needs to lose weight. I recommended that we add the medication liraglutide to help with weight loss and to improve his diabetes control. I wrote out instructions for the use of this medication. 2) bilateral below the knee amputation-he is not very ambulatory on his current prostheses but is having new ones fitted. 3) renal transplant his kidney function has remained stable and he is about to enter his 10th year 4) morbid obesity-'s overall health is much improved if he can lose 20-30 pounds and it's very likely that liraglutide will help him do this. 5) prevention-he is on a statin and an SHANDRA inhibitor and aspirin On victoza 1.8, no nausea In PT 2 x a week uses his CPAP Getting a back brace- may help walking Regimen Basal levemir 50/80 bid Bolus humalog 25-30 units per meal Uses a sliding scale hbgm 1-2 x a day 180-200 most days for fbs Hypo none Diet B 2 toast w pb Sn L Meatloaf Mashed pot vegetable Sn D Hurst's pie chocolate cake Sn Exercise Doing PT for new legs complications Eyes prior laser therapy Feet Bilateral BKA Kidneys + renal transplant - saw transplant team in Jul autonomic: no gastroparesis bladder hypo unaware tachycardia cardiac no chest pain on exertion no shortness of breath at rest No history of stent cabg chf prevention: last eye exam: Within 6 months last microalbumin :2011 last Cr: today last lipid panel:2011 regular airplane engineer:no special shoes:no flu shot :yes pneumovax: 2012 acei yes Asa Yes statin yes Current Outpatient Prescriptions Medication Sig Dispense Refill ??? propranolol (INDERAL LA) 160 mg Capsule,Sustained Action 24 hr Take 1 capsule by mouth 3 times daily. 270 capsule 3 ??? liraglutide (VICTOZA 3-FAZAL) 0.6 mg/0.1 mL (18 mg/3 mL) Pen Injector Inject 1.2 mg subcutaneouslydaily. 6 mL 11 ??? insulin needles, disposable, 29 gauge x 1/2 Needle 1 Device by [facility].(Non- Drug; Combo Route) route 3 times daily. 100 each 3 ??? GLUCAGON HCL (GLUCAGON, HUMAN RECOMBINANT,) 1 mg Recon Soln Inject 1 mL into the muscle as needed. 1 each 3 ??? mycophenolate (CELLCEPT) 250 mg Capsule Take 2 capsules by mouth 2 times daily. Kidney Transplant Z94.0. Transplant Date; 02-29-08 120 capsule 11 ??? PROGRAF 1 mg Capsule Take 1 capsule by mouth 2 times daily. KIDNEY TRANSPLANT Z94.0. TRANSPLANT DATE - 02/29/2008 60 capsule 11 ??? atorvastatin (LIPITOR) 20 mg [...] by mouth daily. 90 capsule 3 ??? LEVEMIR FLEXTOUCH Insulin Pen Inject 130 Units subcutaneously daily. Inject 60 units in the morning, and 70 units at night. ICD 10 Code: E11.40 45 mL 11 ??? OXYGEN-AIR DELIVERY SYSTEMS (HORIZON NASAL CPAP SYSTEM [facility]) Inhale into the lungs nightly. ??? albuterol (PROVENTIL) 2.5 mg /3 mL (0.083 %) Solution for Nebulization Take 2.5 mg by nebulization every 4 hours as needed for Wheezing. ??? gabapentin (NEURONTIN) 300 mg Capsule Take 3 capsules by mouth 3 times daily. 810 capsule 3 ??? acetaminophen (TYLENOL) 325 mg Tablet Take 650 mg by mouth every 4 hours as needed for Pain. Reported on 08/06/2016 ??? cholecalciferol, Vitamin D3, 2,000 unit Tablet Take 2,000 Units by mouth daily. 0 ??? ipratropium-albuterol (DUONEB) 0.5 mg-3 mg(2.5 mg base)/3 mL Solution for Nebulization Take 3 mLs by nebulization 2 times daily. 1 ??? STIOLTO RESPIMAT 2.5-2.5 mcg/actuation Mist Inhale 2 puffs into the lungs daily. 1 ??? Miscellaneous Medical Supply [facility] [...] current facility-administered medications for this visit. BP 153/62 Pulse 76 Ht (!) 191.8 cm (6' 3.5) Wt (!) 145.2 kg (320 lb) BMI 39.47 kg/m2 Home BP is 150/62 appearance: wt Change Down 13 eyes: no retinopathy seen by green light ext: no pitting edema feet: bilateral bka neuro: gait is normal appreciation of 10 g of pressure is present Recent Results (from the past 24 hour(s)) Hemoglobin A1c Result Value Ref Range Hemoglobin A1C 8.2 (H) 4.3 - 5.6 % Est Avg Gluc 189 mg/dL Creatinine Result Value Ref Range Creatinine 1.94 (H) 0.80 - 1.50 mg/dL Estimated GFR 35 (L) >=60 TSH Result Value Ref Range TSH 2.52 0.27 - 4.20 mlU/ML Ref. Range 01/05/2016 10:05 06/08/2016 10:10 08/06/2016 07:41 12/07/2016 10:34 02/28/2017 10:05 Hemoglobin A1C Latest Ref Range: 4.3 - 5.6 % 8.8 (H) 9.4 (H) 8.6 (H) Creatinine Latest Ref Range: 0.80 - 1.50 mg/dL 1.81 (H) 1.77 (H) 2.23 (H) 1.83 (H) 1.91 (H) 1) DM2 this is much improved diabetes control and back to his baseline. I'm pleased to see if this was done with weight loss which suggests that is the effect of the liraglutide. We will see him again in 6 months. 2) CKD3/renal transplant his kidney function has been stable over the past year. 3) bilateral amputation he is an active physical therapy. 4) retinopathy 5) weight loss he is pleased to lose weight and feels better for it. I expect he will lose at least 3-5 more pounds from the GLP 1 agonist. documented in this encounter Plan of Treatment Upcoming Encounters Date Type Specialty Care Team Description 05/26/2022 Office Visit Otolaryngology Ricardo Panda PA [facility] [place], [place] [address] (Wo rk) 06/02/2022 Infusion Hematology and Oncology 06/16/2022 Infusion Hematology and Oncology 06/21/2022 Office Visit Neurology Tyler Rojas MD [facility] Neurology [place], [place] [phone] (Wo rk) 06/30/2022 Infusion Hematology and Oncology 07/14/2022 Infusion Hematology and Oncology 07/28/2022 Infusion Hematology and Oncology 08/11/2022 Infusion Hematology and Oncology 11/04/2022 Office Visit Rheumatology Dante Freedman PA [facility] RHEUMATOLOGY [place], [place] [address] (Wo rk) documented as of this encounter Visit Diagnoses Diagnosis Type 2 diabetes mellitus with complicati on, with long-term current use of insulin Adult BMI 40.0-44.9 kg/sq m Body Mass Index 40.0-44.9, adult CKD (chronic kidney disease) stage 3, GF R 30-59 ml/min Chronic kidney disease, Stage III (moder ate) Weight loss Loss of weight documented in this encounter Care Teams Bulk Folder Relationship Specialty Start Date End Date Violetta Sanford MD PCP - General 04/02/14 [address] [place] [address] documented as of this encounter
--- OUTSIDE RECORDS SUMMARY | 2022-05-24 10:53 | XMS_ITS | Encounter Summary ---
:1955 Author Organization [facility] [place] [address] Care Team Providers Name Role Phone Violetta Sanford MD Primary Care Provider Reason for Visit Consultation (Routine) - Specialty Diagnoses / Procedures Referred By Contact Refer red To Contact Endocrinology Diagnoses Kidney replaced by transplant Type 2 diabetes mellitus with other kidney complication Immunosuppression Persistent proteinuria Alejo Garnett, Donell Hernandez MD MD [facility] D R ENDOCRINOLOGY DEPT. [place] [address] Referral ID Status Reason Start Date Expiration Date Visits V isits Requested Authorized [id number] Consult, 03/08/2017 03/08/2018 6 6 Test & Treat Encounter Details Date Type Department Care Team Description 03/09/2017 Office Visit Endocrinology at [facility] Donell Hardin, Type 2 diabetes mellitus wit h complication, with long-term current use of insulin; [facility] S/P bilateral BKA (below knee amputation ); Drive [facility] Adult BMI 40.0-44.9 kg/sq m; [place] [address] [place] [address] History of renal transplant [phone] [place] [address] Social History Tobacco Use Types Packs/Day Years [...] Sign Reading Time Taken Comments Blood Pressure 145/71 03/09/2017 2:45 PM EDT Pulse 60 03/09/2017 2:45 PM EDT Temperature - - Respiratory Rate - - Oxygen Saturation - - Inhaled Oxygen Concentration - - Weight 151.2 kg (333 lb 6.4 oz) 03/09/2017 2:45 PM EDT Height 194.3 cm (6' 4.5) 03/09/2017 2:45 PM EDT Body Mass Index 40.05 03/09/2017 2:45 PM EDT documented in this encounter Patient Instructions Patient InstructionsDonell Hernandez MD - 03/09/2017 3:00 PM EDT TO START VICTOZA: 1) set the Victoza pen to 0.6 mg 2) Inject daily 3) If no nausea after two weeks, increase to 1.2 mg 4) If you see glucose levels under 100 for 2 days in a row, reduce the levemire hots each by 5 units documented in this encounter Progress Notes Donell Hernandez MD - 03/09/2017 3:00 PM EDT Year of diagnosis: Regimen ____ [...] bka R and morbid obesity. From November 2016 1) DM2 - Mr Brian has fixed his diabetes control with a [...] since he missed the eye appt today Has new legs and rubbers, still has stump cracks, mainly L Not walking much Thinks he has gained some weight Saw chobanian , increased his bp meds Feels hot a lot Only occasionally uses his CPAP Getting a back brace- may help walking Regimen Basal levemir 50/80 bid Bolus humalog 30 units per meal Uses a sliding scale hbgm 3-4 x a day Usually Under 180 fbs, usuallmy under 210 Hypo none Diet Avoiding sweets and donuts B 2 toast w pb Sn L 2 chicken drumsticks Sn D Salad Burger w 1 sl bread Sn Exercise Doing PT for new legs complications Eyes prior laser therapy Feet Bilateral BKA Kidneys + renal transplant - saw transplant team in Jul autonomic: no gastroparesis bladder hypo unaware tachycardia cardiac no chest pain on exertion no shortness of breath at rest No history of stent cabg chf prevention: last eye exam: Within the month last microalbumin :2011 last Cr:today last lipid panel:2011 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 mycophenolate (CELLCEPT) 250 mg Capsule Take [...] lungs daily. 1 ??? Miscellaneous Medical Supply [facility] 4 Devices by [employer] [facility] [employer].(Non-Drug; Combo Route) route daily. Rubber sheath for leg prosthesis (2 pairs) 4 each PRN ??? VENTOLIN HFA 90 mcg/actuation HFA Aerosol Inhaler Inhale 2 puffs into the lungs as needed. 0 ??? Insulin Lispro (HUMALOG) 100 unit/mL Insulin Pen Inject 30-40 Units subcutaneously 4 times daily. ??? BD INSULIN PEN NEEDLE UF ORIG 29 gauge x 1/2 Needle 0 ??? Insulin [place], Disposable, (BD INSULIN PEN NEEDLE UF SHORT) [...] current facility-administered medications for this visit. BP 145/71 Pulse 60 Ht (!) 194.3 cm (6' 4.5) Wt (!) 151.2 kg (333 lb 6.4 oz) BMI 40.05 kg/m2 Home BP is 150/62 appearance: wt Change eyes: no retinopathy seen by green light ext: no pitting edema feet: bilateral bka neuro: gait is normal appreciation of 10 g of pressure is present Recent Results (from the past 24 hour(s)) Hemoglobin A1c Result Value Ref Range Hemoglobin A1C 9.3 (H) 4.3 - 5.6 % Est Avg Gluc 220 mg/dL Ref. Range 01/05/2016 10:05 06/08/2016 10:10 08/06/2016 07:41 12/07/2016 10:34 02/28/2017 10:05 Hemoglobin A1C Latest Ref Range: 4.3 - 5.6 % 8.8 (H) 9.4 (H) 8.6 (H) Creatinine Latest Ref Range: 0.80 - 1.50 mg/dL 1.81 (H) 1.77 (H) 2.23 (H) 1.83 (H) 1.91 (H) 1) type 2 diabetes- his diabetes control [...] statin and an SHANDRA inhibitor and aspirin documented in this encounter Plan of Treatment Upcoming Encounters Date Type Specialty Care Team Description 05/26/2022 Office Visit Otolaryngology Ricardo Panda PA [facility] [address] [place] [address] (Wo gregg) 06/02/2022 Infusion Hematology and Oncology 06/16/2022 Infusion Hematology and Oncology 06/21/2022 Office Visit Neurology Tyler Rojas MD [facility] Neurology [place], [place] [phone] (Wo rk) 06/30/2022 Infusion Hematology and Oncology 07/14/2022 Infusion Hematology and Oncology 07/28/2022 Infusion Hematology and Oncology 08/11/2022 Infusion Hematology and Oncology 11/04/2022 Office Visit Rheumatology Dante Freedman PA [facility] RHEUMATOLOGY [place], [place] [address] (Wo rk) Scheduled Orders Name Type Priority Associated Diagnoses Order S chedule Hemoglobin A1c Lab STAT Type 2 diabetes mellitus w ith Expected: 06/17/2017 complication, with long-term (Approximate), Expires: current use of insulin 03/10 Creatinine Lab STAT Type 2 diabetes mellitus wit h Expected: 06/17/2017 complication, with long-term (Approximate), Expires: current use of insulin 03/10 documented as of this encounter Procedures Procedure Name Priority Date/Time Associated Diagnosis Comme nts HEMOGLOBIN A1C STAT 03/09/2017 4:31 PM Type 2 diabetes Resu lts for this EDT mellitus with procedure are in the complication, with results s ection. long-term current use of insulin documented in this encounter Results (ABNORMAL) Hemoglobin A1c (03/09/2017 4:31 PM EDT) Analysis Performed At Patho logist Time Signature Hemoglobin A1C 9.3 (H) 4.3 - 5.6 [facility] [...] Mellitus, Diabetes Care 2013; 36: Suppl. 1, S67-28 Est Avg Gluc 220 mg/dL [facility] Comment: eAG equivalents for HbA1c percentages: HbA1c(%) ?eAG(mg/dL) 6.0 ?126 6.5 ?140 7.0 ?154 7.5 ?169 8.0 ?183 8.5 ?197 9.0 ?212 9.5 ?226 10.0 ? 240 Limitations: The eAG calculation has not been validated on women, individuals below 18 years old and above 70 years old, and individuals with hemoglobinopathies. Additional resources are available on [facility] website. Scooby MALDONADO, Nba J, Sydnee R, et al. ??Tr anslating the A1C assay into estimated average glucose values. ??Diabetes Care 2008:31(8):0823-4129. Specimen Anatomical Collection Method Collection Time Receive d Time (Source) Location / / Volume Laterality Blood specimen 03/09/2017 4:31 PM 017 4:40 (specimen) EDT PM EDT Resulting Agency Comment Spec In Lab Donell Hernandez MD CHEMISTRY ORDERABLES Performing Organization Address City/State/[place] [address] documented in this encounter Visit Diagnoses Diagnosis Type 2 diabetes mellitus with complicati on, with long-term current use of insulin S/P bilateral BKA (below knee amputation ) Lower limb amputation, below knee Adult BMI 40.0-44.9 kg/sq m Body Mass Index 40.0-44.9, adult History of renal transplant Kidney replaced by transplant documented in this encounter Care Teams Gas Well Drilling Manager Relationship Specialty Start Date End Date Violetta Sanford MD PCP - General 04/02/14 [address] [place] [address] documented as of this encounter
--- OUTSIDE RECORDS SUMMARY | 2022-05-24 10:53 | XMS_ITS | Encounter Summary ---
:1955 Author Organization [facility] [place] [address] Care Team Providers Name Role Phone Violetta Sanford MD Primary Care Provider Reason for Visit Reason Onset Date Comments Medication Refill 02/13/2018 Encounter Details Date Type Department Care Team Description 02/13/2018 Refill Endocrinology at [facility] Donell Hernandez MD [facility]3] [place] [address] ENDOCRINOLOGY DEPT. [phone] [place], [place] [address] (Wo rk) Social History Tobacco [...] Panda PA [facility] Dr [place], [place] [address] (Wo rk) 06/02/2022 Infusion Hematology and Oncology 06/16/2022 Infusion Hematology and Oncology 06/21/2022 Office Visit Neurology Tyler Rojas MD [facility] er Neurology [place], [place] [phone] (Wo rk) 06/30/2022 Infusion Hematology and Oncology 07/14/2022 Infusion Hematology and Oncology 07/28/2022 Infusion Hematology and Oncology 08/11/2022 Infusion Hematology and Oncology 11/04/2022 Office Visit Rheumatology Dante Freedman PA [facility] RHEUMATOLOGY [place], [place] [address] (Wo rk) documented as of this encounter Visit Diagnoses Not on filedocumented in this encounter Care Teams Aerospace Project Manager Relationship Specialty Start Date End Date Violetta Sanford MD PCP - General 04/02/14 [address] [place] [address] documented as of this encounter
--- OUTSIDE RECORDS SUMMARY | 2022-05-24 10:53 | XMS_ITS | Encounter Summary ---
:1955 Author Organization [facility] [place] [address] Care Team Providers Name Role Phone Violetta Sanford MD Primary Care Provider Reason for Visit Reason Onset Date Comments Medication Refill 10/20/2017 Encounter Details Date Type Department Care Team Description 10/20/2017 Refill Neurology at [facility] Shivam Rojas MD [facility] [place] [address] Neurology [phone] [place], [place] [phone] (Wo rk) Social History [...] Otolaryngology Ricardo Panda PA [facility] [place], [place] [address] (Wo rk) 06/02/2022 Infusion Hematology and Oncology 06/16/2022 Infusion Hematology and Oncology 06/21/2022 Office Visit Neurology Tyler Rojas MD [facility] er Neurology [place], [place] [phone] (Wo rk) 06/30/2022 Infusion Hematology and Oncology 07/14/2022 Infusion Hematology and Oncology 07/28/2022 Infusion Hematology and Oncology 08/11/2022 Infusion Hematology and Oncology 11/04/2022 Office Visit Rheumatology Dante Freedman PA [facility] ER RHEUMATOLOGY [place], [place] [address] (Wo rk) documented as of this encounter Visit Diagnoses Not on filedocumented in this encounter Care Teams Drug Safety Coordinator Relationship Specialty Start Date End Date Violetta Sanford MD PCP - General 04/02/14 [address] [place] [address] documented as of this encounter
--- OUTSIDE RECORDS SUMMARY | 2022-05-24 10:53 | XMS_ITS | Encounter Summary ---
:1955 Author Organization [facility] [place] [address] Care Team Providers Name Role Phone Violetta Sanford MD Primary Care Provider Reason for Visit Reason Comments Diabetes Patient is here today for a 6 month follow up. Encounter Details Date Type Department Care Team Description 12/13/2017 Office Visit Endocrinology at [facility] Donell Hernandez, Vitamin D deficiency; [facility] Type 2 diabetes mellitus with complicati on, with long-term current use of insulin; [facility] Adult BMI 37.0-37.9 kg/sq m; [place] [address] CENTER CKD (chronic kidney disease) stage 3, GF R 30-59 ml/min; [phone] ENDOCRINOLOGY S/P bilateral BKA (below knee amputation); DEPT. History of renal transplant [place] [id number] Social History Tobacco Use Types Packs/Day Years [...] Sign Reading Time Taken Comments Blood Pressure 128/56 12/13/2017 11:13 AM EDT Pulse 71 12/13/2017 11:13 AM EDT Temperature - - Respiratory Rate - - Oxygen Saturation - - Inhaled Oxygen Concentration - - Weight 141.5 kg (312 lb) 12/13/2017 11:13 AM Patient dana quintanilla EDT Height 193 cm (6' 4) 12/13/2017 11:13 AM EDT Body Mass Index 37.98 12/13/2017 11:13 AM EDT documented in this encounter Progress Notes Donell Hernandez MD - 12/13/2017 11:00 AM EDT Year of diagnosis: Regimen [...] bka R and morbid obesity. From May 2017 1) DM2 this is much improved diabetes [...] more pounds from the GLP 1 agonist. On victoza 1.8, no nausea In PT 2 x a week Stopped CPAP- sees no problem Getting a back brace- may help walking Renal transplant now for 10 years Has new legs but fittings are too tight Regimen Basal levemir 50/80 bid Bolus humalog 25-30 units per meal Uses a sliding scale hbgm 1-2 x a day 180-200 most days for fbs Hypo none Diet B 2 toast w pb Sn L Chicken beans Sn D Ear of corn 1.5 potatoes Sn Exercise Fell recently, sprained L knee complications Eyes prior laser therapy Feet Bilateral BKA Kidneys + renal transplant - saw transplant team in Jul autonomic: no gastroparesis bladder hypo unaware tachycardia cardiac no chest pain on exertion no shortness of breath at rest No history of stent cabg chf prevention: last eye exam: Within 2 mo last microalbumin :2011 last Cr: today last lipid panel:2011 regular double end trimmer:no special shoes:no flu shot :yes pneumovax: 2011 prevnar 2014 acei yes Asa Yes statin yes Current Outpatient Prescriptions Medication Sig Dispense Refill ??? LEVEMIR FLEXTOUCH U-100 INSULN Insulin Pen Inject 50-80 Units subcutaneously 2 times daily. ICD 10 Code: E11.40 135 mL 3 ??? PROGRAF 1 mg Capsule Take 1 capsule by mouth 2 times daily. KIDNEY TRANSPLANT Z94.0. TRANSPLANT DATE - 02/29/2008 60 capsule 11 ??? mycophenolate (CELLCEPT) 250 mg Capsule Take 2 capsules by mouth 2 times daily. Kidney Transplant Z94.0. Transplant Date; 02-29-08 120 capsule 11 ??? gabapentin (NEURONTIN) 300 mg Capsule Take 3 capsules by mouth 3 times daily. 810 capsule 1 ??? propranolol (INDERAL LA) 160 mg Capsule,Sustained Action 24 hr Take 1 capsule by mouth 3 times daily. 270 capsule 1 ??? atorvastatin (LIPITOR) 20 mg Tablet Take 1 tablet by mouth daily. 90 tablet 3 ??? losartan (COZAAR) 25 mg Tablet Take 0.5 tablets by mouth daily. (Patient taking differently: Take 25 mg by mouth nightly. Indications: hypertension) 45 tablet 3 ??? Insulin Lispro (HUMALOG) 100 unit/mL Insulin Pen Inject 30-40 Units subcutaneously 4 times daily. ??? liraglutide (VICTOZA 3-FAZAL) 0.6 mg/0.1 mL (18 mg/3 mL) Pen Injector Inject 1.2 mg subcutaneouslydaily. 6 mL 11 ??? insulin needles, disposable, 29 gauge x 1/2 Needle 1 Device by [facility].(Non- Drug; Combo Route) route 3 times daily. 100 each 3 ??? GLUCAGON HCL (GLUCAGON, HUMAN RECOMBINANT,) 1 mg Recon Soln Inject 1 mL into the muscle as needed. 1 each 3 ??? folic acid (FOLVITE) 1 mg Tablet Take 2 tablets by mouth daily. 180 tablet 3 ??? omeprazole (PRILOSEC) 40 mg Capsule, Delayed Release(E.C.) Take 1 capsule by mouth daily. 90 capsule 3 ??? OXYGEN-AIR DELIVERY SYSTEMS ([employer] NASAL CPAP SYSTEM [facility]) Inhale into the lungs nightly. ??? albuterol [...] lungs daily. 1 ??? Miscellaneous Medical Supply [facility] 4 Devices by [facility].(Non-Drug; Combo Route) route daily. Rubber sheath for leg prosthesis (2 pairs) 4 each PRN ??? VENTOLIN HFA 90 mcg/actuation HFA Aerosol Inhaler Inhale 2 puffs into the lungs as needed. 0 ??? BD INSULIN PEN NEEDLE UF ORIG [...] the year, contrinues ot lose weight BP 128/56 (BP Location (NBP): Right arm, Patient Position: Sitting, BP Cuff Sizes: Adult (25-34 cm)) Pulse 71 Ht 193 cm (6' 4) Wt (!) 141.5 kg (312 lb) Comment: Patient reports BMI 37.98 kg/m2 eyes: no retinopathy seen by green light ext: no pitting edema feet: bilateral bka neuro: gait is normal appreciation of 10 g of pressure is present Recent Results (from the past 24 hour(s)) Hemoglobin A1c Result Value Ref Range Hemoglobin A1C 8.3 (H) 4.3 - 5.6 % Est Avg Gluc 192 mg/dL TSH Result Value Ref Range TSH 2.37 0.27 - 4.20 mlU/ML Ref. Range 03/09/2017 16:31 06/14/2017 09:44 12/13/2017 09:48 Hemoglobin A1C Latest Ref Range: 4.3 - 5.6 % 9.3 (H) 8.2 (H) 8.3 (H) 1) DM2 this is stable improved diabetes control since starting liraglutide. Continue to lose weight.We did not make any changes provided the hemoglobin A1c was below 8.5%. 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 He hopes to be more active on the new legs. 3) renal transplant stable for 10 years 4) retinopathy no recent interventions needed 5) BMI > 37/weight loss - he is slowly losing weight 6) prevention vaccinations are up-to-date documented in this encounter Plan of Treatment Upcoming Encounters Date Type Specialty Care Team Description 05/26/2022 Office Visit Otolaryngology Ricardo Panda PA [facility] [address] [place], [place] [address] (Wo rk) 06/02/2022 Infusion Hematology and Oncology 06/16/2022 Infusion Hematology and Oncology 06/21/2022 Office Visit Neurology Tyler Rojas MD [facility] er Neurology [place], [place] [phone] (Wo rk) 06/30/2022 Infusion Hematology and Oncology 07/14/2022 Infusion Hematology and Oncology 07/28/2022 Infusion Hematology and Oncology 08/11/2022 Infusion Hematology and Oncology 11/04/2022 Office Visit Rheumatology Dante Freedman PA [facility] RHEUMATOLOGY [place], [place] [address] (Wo rk) documented as of this encounter Results (ABNORMAL) Creatinine (06/21/2018 9:27 AM EST) Analysis Performed At [facility] Time Signature Creatinine 1.82 (H) 0.80 - [facility] 1.50 mg/dL [facility] Estimated GFR 38 (L) >=60 [facility] mL/min/1.7 [facility] 3 [facility] LABORAT[facility] Comment: The eGFR was calculated using the CKD-EP I equation. As with all creatinine based estimates of kidney function, eGFR values calculated with the CKD-EPI equation are not accurate in patients wi th acute kidney failure, extremes of body mass or the acutely ill. [email or web address]/[facility] eGFR 44 (L) >=60 mL/min/1.73 m?? [facility] Comment: The eGFR was calculated using the CKD-EP I equation. As with all creatinine based estimates of kidney function, eGFR values calculated with the CKD-EPI equation are not accurate in patients wi th acute kidney failure, extremes of body mass or the acutely ill. http://Arbovax/[facility] Specimen Anatomical Collection Method Collection Time Receive d Time (Source) Location / / Volume Laterality Blood specimen 06/21/2018 9:27 AM 018 9:37 (specimen) EST AM EST Resulting Agency Comment Spec In Lab Donell Hernandez MD CHEMISTRY ORDERABLES Performing Organization Address City/State/[place] [address] (ABNORMAL) Hemoglobin A1c (06/21/2018 9:27 AM EST) Analysis Performed At [facility] Time Signature Hemoglobin A1C 8.2 (H) 4.3 - 5.6 [facility] Comment: Reference Range: 4.3 - [...] 36: Suppl. 1, S67-74 Est Avg Gluc 189 mg/dL [facility] Comment: eAG equivalents for HbA1c percentages: HbA1c(%) ?eAG(mg/dL) 6.0 ?126 6.5 ?140 7.0 ?154 7.5 ?169 8.0 ?183 8.5 ?197 9.0 ?212 9.5 ?226 10.0 ? 240 Limitations: The eAG calculation has not been validated on women, individuals below 18 years old and above 70 years old, and individuals with hemoglobinopathies. Additional resources are available on [facility] ADA website. Scooby MALDONADO, Nba J, Sydnee R, et al. ??Tr anslating the A1C assay into estimated average glucose values. ??Diabetes Care 2008:31(8):3318-2326. Specimen Anatomical Collection Method Collection Time Receive d Time (Source) Location / / Volume Laterality Blood specimen 06/21/2018 9:27 AM 018 9:37 (specimen) EST AM EST Resulting Agency Comment Spec In Lab Donell Hernandez MD CHEMISTRY ORDERABLES Performing Organization Address City/State/ZIP Code Phon e Number [place] [id number] documented in this encounter Visit Diagnoses Diagnosis Vitamin D deficiency Unspecified vitamin D deficiency Type 2 diabetes mellitus with complicati on, with long-term current use of insulin Adult BMI 37.0-37.9 kg/sq m Body Mass Index 37.0-37.9, adult CKD (chronic kidney disease) stage 3, GF R 30-59 ml/min Chronic kidney disease, Stage III (moder ate) S/P bilateral BKA (below knee amputation ) Lower limb amputation, below knee History of renal transplant Kidney replaced by transplant documented in this encounter Care Teams Assistive Technology Specialist Relationship Specialty Start Date End Date Violetta Sanford MD PCP - General 04/02/14 [address] [place] [address] documented as of this encounter
--- OUTSIDE RECORDS SUMMARY | 2022-05-24 10:53 | XMS_ITS | Encounter Summary ---
:1955 Author Organization [facility] [place] [address] Care Team Providers Name Role Phone Violetta Sanford MD Primary Care Provider Reason for Visit Reason Onset Date Comments Medication Refill 01/24/2017 Encounter Details Date Type Department Care Team Description 01/24/2017 Refill Endocrinology at [facility] Donell Hernandez MD [facility] [place] [address] ENDOCRINOLOGY DEPT. [phone] [place], [place] [address] (Wo rk) Social History Tobacco [...] Panda PA [facility] [address] [place], [place] [address] (Wo rk) 06/02/2022 Infusion Hematology and Oncology 06/16/2022 Infusion Hematology and Oncology 06/21/2022 Office Visit Neurology Tyler Rojsa MD [facility] er Neurology [place], [place] [phone] (Wo rk) 06/30/2022 Infusion Hematology and Oncology 07/14/2022 Infusion Hematology and Oncology 07/28/2022 Infusion Hematology and Oncology 08/11/2022 Infusion Hematology and Oncology 11/04/2022 Office Visit Rheumatology Dante Freedman PA [facility] RHEUMATOLOGY [place], [place] [address] (Wo rk) documented as of this encounter Visit Diagnoses Not on filedocumented in this encounter Care Teams Director Of Nurses Registry Relationship Specialty Start Date End Date Violetta Sanford MD PCP - General 04/02/14 [address] [place] [address] documented as of this encounter
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
--- OUTSIDE RECORDS SUMMARY | 2022-05-24 10:54 | XMS_ITS | Encounter Summary ---
:1955 Author Organization [facility] Address [facility] [address] [place] [address] Care Team Providers Name Role Phone Violetta Sanford MD Primary Care Provider Reason for Visit Reason Comments Diabetes Encounter Details Date Type Department Care Team Description 06/30/2015 Office Visit Endocrinology at [facility] Donell Hernandez, Diabetes mellitus type 2, un controlled; [facility] History of renal transplant; Drive [facility] S/P bilateral BKA (below kne e amputation); [place] [address] [facility] Obesity [phone] [address] [place] [address] Social History Tobacco Use Types Packs/Day Years [...] Sign Reading Time Taken Comments Blood Pressure 157/67 06/30/2015 10:25 AM EST Pulse 65 06/30/2015 10:25 AM EST Temperature - - Respiratory Rate - - Oxygen Saturation - - Inhaled Oxygen - - Concentration Weight 152.7 kg (336 lb 9.6 06/30/2015 10:25 with 14 lb s prothetics oz) AM EST Height 194.3 cm (6' 4.5) 06/30/2015 10:25 AM EST Body Mass Index 40.44 06/30/2015 10:25 AM EST documented in this encounter Patient Instructions Patient InstructionsDonell Hernandez MD - 06/30/2015 11:14 AM EST Hemoglobin A1c Result Value Ref Range Hemoglobin A1C 8.6 (H) 4.3 - 5.6 % Est Avg Gluc 200 mg/dL Creatinine Result Value Ref Range Creatinine 1.77 (H) 0.80 - 1.50 mg/dL Estimated GFR 39 (L) >=60 Ref. Range 03/17/2015 09:00 03/17/2015 09:14 06/30/2015 09:09 Creatinine Latest Range: 0.80-1.50 mg/dL 1.70 (H) 1.77 (H) Estimated GFR Latest Range: >=60 41 (L) 39 (L) Glucose Fasting Latest Range: 65-99 mg/dL 298 (H) Calcium Latest Range: 8.5-10.5 mg/dL 8.9 Magnesium Latest Range: 0.69-1.07 mmol/L 0.72 Hemoglobin A1C Latest Range: 4.3-5.6 % 9.7 (H) 8.6 (H) documented in this encounter Progress Notes Donell Hernandez MD - 06/30/2015 10:48 AM EST Year of diagnosis: Regimen ____ oral agents only ____ basal insulin __x__ basal and meal insulin/pump Diagnosis codes 250.03 ___ Type 1 250.02 __x__Type 2 Glucose test strip brand: one touch Number of Tests prescribed per day ___ 2 ___ 3 _x__ 4 ___ 5-8 ___>8 Prescriber: MD Christopher Li ARNP _ J. Turco, MD _ S Chaidarun, MD _ K BelBruno, MD Justification for more than 3 tests [...] bka R and morbid obesity. From November 2014 1) DM2- poor diabetes control but much improved from last visit . He is likely to be far more activewith better weather and perhaps with new prostheses. He has managed t lose some weight and increasedweight that might follow more insulin would complicate his prosthesis evaluations, so I did not makea change 2) bilateral BKA- he is having a new consultation today hoping for more active ankle action and lesstrouble with stump ulcers 3) renal transplant/immunocompromised- renal function is stable though not normal 4) retinopathy- stable by exam today 5) BMI>35- he has lost some weight and may lose more with increased ability to get around 6) prevention issues - up to date on statin . Waiting for new insurance - will be Getting new legs - getting blisters and ulcers from these Now ! Regimen Basal levemir 60/70 bid Bolus humalog 30-35 units per meal (w snack) qid , misses lunch a lot Uses a sliding scale hbgm 4 x a day Usually 200's Before meals One episode of 600's in afternoon Hypo none Diet B 1 donut Sn L dinner chilis Sn D supper Ham Potatoes carrots Sn popcorn Exercise Not much - leg fittings need adjustment - will have new insurance in jul complications Eyes prior laser therapy Feet Bilateral BKA Kidneys transplant - saw transplant team in February autonomic: no gastroparesis bladder hypo unaware tachycardia cardiac no chest pain on exertion No shortness of breath at rest No history of stent cabg chf prevention: last eye exam: 4 mo ago last microalbumin :2011 last Cr:today last lipid panel:2011 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 Always use your most recent med list. Dose Details aspirin 81 mg Tbec Take 81 mg by mouth daily. 81 mg Refills: 0 CELLCEPT 250 mg Cap Take 2 capsules by mouth 2 times daily. Kidney Transplant V42.0. Transplant Date; 02-29-08 Generic drug: mycophenolate 500 mg Quantity: 120 capsule Refills: 11 cholecalciferol (Vitamin D3) 2,000 unit Tab Take 2,000 Units by mouth daily. 2000 Units Refills: 0 fluticasone 50 mcg/actuation Spsn Commonly known as: FLONASE 2 sprays by Each Nare route as needed. 2 spray Quantity: 64 g Refills: 11 folic acid 1 mg Tab Commonly known as: FOLVITE Take 2 mg by mouth daily. 2 mg Refills: 0 gabapentin 300 mg Cap Commonly known as: NEURONTIN 3 tabs in the AM and 3 tabs in the PM Quantity: 540 capsule Refills: 3 insulin detemir Inpn Commonly known as: LEVEMIR FLEXTOUCH Inject 60-70 Units subcutaneously 2 times daily. Takes 60 units in the morning, and 70 units at night. Dx Code: 250.61 60-70 Units Quantity: 45 mL Refills: 11 Insulin Lispro 100 unit/mL Inpn Commonly known as: HUMALOG Inject 30-40 Units subcutaneously 4 times daily. 30-40 Units Refills: 0 insulin needles (disposable) 31 gauge x 5/16 Ndle Commonly known as: BD INSULIN PEN NEEDLE UF SHORT Form faxed for new Rx to [facility] Quantity: 450 each Refills: 4 BD INSULIN PEN NEEDLE UF ORIG 29 gauge x 1/2 Ndle Generic drug: insulin needles (disposable) Refills: 0 montelukast 10 mg Tab Commonly known as: SINGULAIR Take 10 mg by mouth daily. 10 mg Refills: 0 omeprazole 40 mg Cpdr Commonly known as: PriLOSEC Take 40 mg by mouth daily. 40 mg Refills: 0 ONE-A-DAY MEN'S MULTIVITAMIN ORAL Take by mouth daily. Refills: 0 PROGRAF 1 mg Cap Take 1 capsule by mouth 2 times daily. KIDNEY TRANSPLANT V42.0. TRANSPLANT DATE - 02/29/2008 Generic drug: tacrolimus 1 mg Quantity: 60 capsule Refills: 11 propranolol 160 mg Cs24 Commonly known as: INDERAL LA Take 160 mg by mouth daily. 160 mg Refills: 0 simvastatin 10 mg Tab Commonly known as: ZOCOR Take 10 mg by mouth nightly. 10 mg Refills: 0 BP 157/67 mmHg Pulse 65 Ht 194.3 cm (6' 4.5) Wt 152.681 kg (336 lb 9.6 oz) BMI 40.44 kg/m2 Home BP is 150/62 Weight is stable Appearance: looks well eyes: old retinopathy seen [...] mg/dL Creatinine Result Value Ref Range Creatinine 1.77 (H) 0.80 - 1.50 mg/dL Estimated GFR 39 (L) >=60 Ref. Range 03/17/2015 09:00 03/17/2015 09:14 06/30/2015 09:09 Creatinine Latest Range: 0.80-1.50 mg/dL 1.70 (H) 1.77 (H) Estimated GFR Latest Range: >=60 41 (L) 39 (L) Glucose Fasting Latest Range: 65-99 mg/dL 298 (H) Calcium Latest Range: 8.5-10.5 mg/dL 8.9 Magnesium Latest Range: 0.69-1.07 mmol/L 0.72 Hemoglobin A1C Latest Range: 4.3-5.6 % 9.7 (H) 8.6 (H) 1) DM2 - he has improved his diabetes control to a reasonable degree for him. He did this by increasing hs insulin but is also gaining some weight. I did not make a change in his current plan but he may be able to reduce his HA1c to our goal of a level under 8 % once he can be more active with new prosthetic equipment 2) bilateral BKA - he will have adjustments made once his new insurance starts. 3) renal transplant - function is stable 4) retinopathy - has not needed laser rx in some time documented in this encounter Plan of Treatment Upcoming Encounters Date Type Specialty Care Team Description 05/26/2022 Office Visit Otolaryngology Ricardo Panda PA [facility] [address], [place] [address] (Wo rk) 06/02/2022 Infusion Hematology and Oncology 06/16/2022 Infusion Hematology and Oncology 06/21/2022 Office Visit Neurology Tyler Rojas MD [facility] [address] [place], [place] [phone] (Wo rk) 06/30/2022 Infusion Hematology and Oncology 07/14/2022 Infusion Hematology and Oncology 07/28/2022 Infusion Hematology and Oncology 08/11/2022 Infusion Hematology and Oncology 11/04/2022 Office Visit Rheumatology Dante Freedman PA [facility] RHEUMATOLOGY [place], [place] [address] (Wo rk) Scheduled Orders Name Type Priority Associated Diagnoses Order S chedule Creatinine Lab STAT Diabetes mellitus type 2, Ex pected: 10/08/2015 uncontrolled (Approximate), Expires: 06/30/2016 Hemoglobin A1c Lab STAT Diabetes mellitus type 2, Expected: 10/08/2015 uncontrolled (Approximate), Expires: 06/30/2016 documented as of this encounter Results TSH (12/02/2015 10:02 AM EDT) athologist Signature TSH 1.44 0.27 - 4.20 [facility] mcIU/mL [facility] Specimen Anatomical Collection Method Collection Time Receive d Time (Source) Location / / Volume Laterality Blood specimen 12/02/2015 10:02 6 (specimen) AM EDT 10:15 AM EDT Resulting Agency Comment Spec In Lab Donell Hernandez MD CHEMISTRY ORDERABLES Performing Organization Address City/State/[place] [address] (ABNORMAL) Creatinine (12/02/2015 10:02 AM EDT) athologist Signature Creatinine 2.17 (H) 0.80 - JERE G[facility]ISON 1.50 mg/dL [facility] Comment: Please note that the pediatric reference intervals supplied above were not validated [place] [facility] Results from pediatri c patients should be interpreted in conjunction to the patient's age, height and muscle mass. Estimated GFR 31 (L) >=60 [facility] Comment: This estimated GFR [...] the following links into your internet browser. [email or web address] Specimen Anatomical Collection Method Collection Time Receive d Time (Source) Location / / Volume Laterality Blood specimen 12/02/2015 10:02 6 (specimen) AM EDT 10:15 AM EDT Resulting Agency Comment Spec In Lab Donell Hernandez MD CHEMISTRY ORDERABLES Performing Organization Address City/State/[place] [address] (ABNORMAL) Hemoglobin A1c (12/02/2015 10:02 AM EDT) Analysis Performed At Patho logist Time Signature Hemoglobin A1C 7.9 (H) 4.3 - 5.6 [facility] [...] 36: Suppl. 1, S67-74 Est Avg Gluc 180 mg/dL [facility] Comment: eAG equivalents for HbA1c percentages: HbA1c(%) ?eAG(mg/dL) 6.0 ?126 6.5 ?140 7.0 ?154 7.5 ?169 8.0 ?183 8.5 ?197 9.0 ?212 9.5 ?226 10.0 ? 240 Limitations: The eAG calculation has not been validated on women, individuals below 18 years old and above 70 years old, and individuals with hemoglobinopathies. Additional resources are available on [facility] website: [email or web address]acalc Scooby MALDONADO, Nba J, Sydnee R, et al. ??Tr anslating the A1C assay into estimated average glucose values. ??Diabetes Care 2008:31(8):9019-9311. Specimen Anatomical Collection Method Collection Time Receive d Time (Source) Location / / Volume Laterality Blood specimen 12/02/2015 10:02 6 (specimen) AM EDT 10:15 AM EDT Resulting Agency Comment Spec In Lab Donell Hernandez MD CHEMISTRY ORDERABLES Performing Organization Address City/State/[place] [address] documented in this encounter Visit Diagnoses Diagnosis Diabetes mellitus type 2, uncontrolled Type II or unspecified type diabetes fredo litus without mention of complication, uncontrolled History of renal transplant Kidney replaced by transplant S/P bilateral BKA (below knee amputation ) Lower limb amputation, below knee Obesity Obesity, unspecified documented in this encounter Care Teams Elementary [employer] Director Relationship Specialty Start Date End Date Violetta Sanford MD PCP - General 04/02/14 [address] [place] [address] documented as of this encounter
--- OUTSIDE RECORDS SUMMARY | 2022-05-24 10:54 | XMS_ITS | Encounter Summary ---
:1955 Author Organization [facility] [place] [address] Care Team Providers Name Role Phone Violetta Sanford MD Primary Care Provider Encounter Details Date Type Department Care Team Description 06/08/2016 Laboratory Appointment Lab at [facility] [place] [place] DM type 2 [place] [id number] Social History Tobacco Use Types Packs/Day Years [...] Ricardo Panda PA [facility] [address] [place] [address] (Wo rk) 06/02/2022 Infusion Hematology and Oncology 06/16/2022 Infusion Hematology and Oncology 06/21/2022 Office Visit Neurology Tyler Rojas MD [facility] [address] [place] [address] (Wo rk) 06/30/2022 Infusion Hematology and Oncology 07/14/2022 Infusion Hematology and Oncology 07/28/2022 Infusion Hematology and Oncology 08/11/2022 Infusion Hematology and Oncology 11/04/2022 Office Visit Rheumatology Dante Freedman PA [facility] RHEUMATOLOGY [place] [id number] (Wo rk) documented as of this encounter Procedures Procedure Name Priority Date/Time Associated Diagnosis Comme nts CREATININE STAT 06/08/2016 10:10 AM DM type 2 causing Res ults for this EST complication procedure are i n the results section. TSH STAT 06/08/2016 10:10 AM DM type 2 causing Res ults for this EST complication procedure are i n the results section. HEMOGLOBIN A1C STAT 06/08/2016 10:10 AM DM type 2 causing R esults for this EST complication procedure are i n the results section. documented in this encounter Results TSH (06/08/2016 10:10 AM EST) P athologist Signature TSH 1.81 0.27 - 4.20 [facility] mcIU/mL [facility] Specimen Anatomical Collection Method Collection Time Receive d Time (Source) Location / / Volume Laterality Blood specimen 06/08/2016 10:10 6 (specimen) AM EST 10:28 AM EST Resulting Agency Comment Spec In Lab Donell Hernandez MD CHEMISTRY ORDERABLES Performing Organization Address City/State/[place] [address] (ABNORMAL) Hemoglobin A1c (06/08/2016 10:10 AM EST) Analysis Performed At Patho logist Time Signature Hemoglobin A1C 8.8 (H) 4.3 - 5.6 [facility] Comment: Reference Range: [...] Mellitus, Diabetes Care 2013; 36: Suppl. 1, S67-70 Est Avg Gluc 206 mg/dL JERE GARRISON [facility] Comment: eAG equivalents for HbA1c percentages: HbA1c(%) ?eAG(mg/dL) 6.0 ?126 6.5 ?140 7.0 ?154 7.5 ?169 8.0 ?183 8.5 ?197 9.0 ?212 9.5 ?226 10.0 ? 240 Limitations: The eAG calculation has not been validated on women, individuals below 18 years old and above 70 years old, and individuals with hemoglobinopathies. Additional resources are available on [facility] website: [email or web address] Scooby MALDONADO, Nba J, Sydnee R, et al. ??Tr anslating the A1C assay into estimated average glucose values. ??Diabetes Care 2008:31(8):5372-4756. Specimen Anatomical Collection Method Collection Time Receive d Time (Source) Location / / Volume Laterality Blood specimen 06/08/2016 10:10 6 (specimen) AM EST 10:28 AM EST Resulting Agency Comment Spec In Lab Donell Hernandez MD CHEMISTRY ORDERABLES Performing Organization Address City/State/ZIP Code [place] [address] (ABNORMAL) Creatinine (06/08/2016 10:10 AM EST) athologist Signature Creatinine 1.77 (H) 0.80 - J[facility] GARRISON 1.50 mg/dL [facility] Comment: Please note that the pediatric reference intervals supplied above were not validated at [facility] [place] [place]. Results from pediatri c patients should be interpreted in conjunction to the patient's age, height and muscle mass. Estimated GFR 39 (L) >=60 [facility] G[facility] Comment: This estimated GFR [...] the following links into your internet browser. [email or web address] [email or web address] Specimen Anatomical Collection Method Collection Time Receive d Time (Source) Location / / Volume Laterality Blood specimen 06/08/2016 10:10 6 (specimen) AM EST 10:28 AM EST Resulting Agency Comment Spec In Lab Donell Hernandez MD CHEMISTRY ORDERABLES Performing Organization Address City/State/ZIP Code Phon e Number [place] [id number] documented in this encounter Visit Diagnoses Diagnosis DM type 2 causing complication Type II or unspecified type diabetes fredo litus with unspecified complication, not stated as uncontrolled documented in this encounter Care Teams Central Office Trouble Shooter Relationship Specialty Start Date End Date Violetta Sanford MD PCP - General 04/02/14 [address] [place] [address] documented as of this encounter
--- OUTSIDE RECORDS SUMMARY | 2022-05-24 10:54 | XMS_ITS | Encounter Summary ---
:1955 Author Organization [place] [address] Care Team Providers Name Role Phone Violetta Sanford MD Primary Care Provider Reason for Visit Reason Comments Kidney Transplant Follow-up Immunotherapy Encounter Details Date Type Department Care Team Description 08/06/2016 Office Visit Solid Organ [place], Kidney replaced by transplant; Transplant at [facility] [place] Alejo Desir MD Aftercare following organ transplant; [facility] H/O mesfin y transplant; [facility] [address] [place], [place] TRANSPLANT [id number] SURGERY [phone] [place] [address] Social History Tobacco Use Types Packs/Day Years [...] Sign Reading Time Taken Comments Blood Pressure 124/59 08/06/2016 9:05 AM EST Pulse 62 08/06/2016 9:05 AM EST Temperature 36.7 ??C (98.1 ??F) 08/06/2016 9:05 AM EST Respiratory Rate 12 08/06/2016 9:05 AM EST Oxygen Saturation 96% 08/06/2016 9:05 AM EST Inhaled Oxygen - - Concentration Weight 165.1 kg (364 lb) 08/06/2016 9:05 patient states without AM EST prostetics 1 wee k ago Height - - Body Mass Index 44.31 06/08/2016 10:48 AM EST documented in this encounter Progress Notes Fide Elizabeth MD - 08/06/2016 9:[address] [facility] Transplant Nephrology Follow Up ?? Leroy Torres [id number] 1955 ?? Transplant ID: Date: 08/06/2016 Patient: Leroy Torres Transplant Date: 02/29/08 Organ(s) Kidney [place] organ diagnosis: Diabetes Mellitus - Type II From Transplant: 8 years 5 months Last visit 01/05/2016 ?? Transplant ID: Mr. Leroy Torres is a White Not nor 61 y.o. male who is Status Post Kidney transplantation. Patient referred by Dr. Xiao. Mr. Leroy Torres presents to clinic forroutine follow-up of care, for Kidney transplantation. Trouble sleeping at night. MELISSA was diagnosed and [employer] I[employer] Consultant ordered CPAP machine at night with shanita for him Got last mar 2015 have been travelling a lot since then ?? He underwent a hydrocelectomy 3 years ago ?? History of Present Illness: Mr. Torres is here today for a routine follow up at 8 years. ? Interim : He was admitted for cellulitis last month. He was discharged on levaquin. He drinks >2 L per day Has meagan having pain at left stump x 2 months Losartan was increased to 100 by PCP Stopped drinking diet soda ??he reports 1 episode of hyperkalemia ; since then his losartan was decreased to 12.5 mg PO daily .He has also been started on a low potassium diet. Following was addressed with the patient ? Healthcare maintenance for a transplant recipient: ?? Immunizations (no live virus or modified bacterial [...] Every 5 year colonoscopy after age 50 Monthly self skin exam, daily spf 50 sunblock, annual derm consult if hx of skin cancer Annual eye exam Semi annual dental evaluation with prophylactic antibiotics Cardiac stress test after age 50, every 3 years for diabetics, every 5 for non diabetics done 03/21/2015 [place] kidney ultrasound looking for renal cell CA, every 5 years post transplant Bone density assessment every 9-12 years post transplant Annual fasting lipid profile Annual PTH-Vit D3 assessment until normalized Annual 24 hour timed urine for creatinine, protein, calcium, phosphate, magnesium ?? PMHx: ?? 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 Diabetes Mellitus ?? S/p bilateral BKA ?? Asthma, nasal polyps. ?? Essential tremor. ?? Hypertension. ?? GERD. ?? Chronic large Hydrocele ?? ROS: Denies fevers, chills, nausea, vomiting, diarrhea, abd pain, chest pain, sob. ?? Medications: Current Outpatient Prescriptions on File Prior to Visit Medication Sig Dispense Refill ??? cholecalciferol, Vitamin D3, 2,000 unit Tablet Take 2,000 Units by mouth daily. 0 ??? PROGRAF 1 mg Capsule Take 1 capsule by mouth 2 times daily. KIDNEY TRANSPLANT Z94.0. TRANSPLANT DATE - 02/29/2008 60 capsule 11 ??? CELLCEPT 250 mg Capsule Take 2 capsules by mouth 2 times daily. Kidney Transplant Z94.0. Transplant Date; 02-29-08 120 capsule 11 ??? LEVEMIR FLEXTOUCH Insulin Pen INJECT 60 UNITS IN MORNING AND 70 UNITS AT NIGHT 45 mL 11 ??? atorvastatin (LIPITOR) 20 mg Tablet Take 20 mg by mouth daily. ??? ipratropium-albuterol (DUONEB) 0.5 mg-3 mg(2.5 mg base)/3 mL Solution for Nebulization 1 ??? STIOLTO RESPIMAT 2.5-2.5 mcg/actuation Mist 1 ??? Miscellaneous Medical Supply [facility] 4 Devices by [facility].(Non-Drug; Combo Route) route daily. Rubber sheath for leg prosthesis (2 pairs) 4 each PRN ??? VENTOLIN HFA 90 mcg/actuation HFA Aerosol Inhaler Inhale 2 puffs into the lungs as needed. 0 ??? gabapentin (NEURONTIN) 300 mg Capsule Take 3 capsules by mouth 3 times daily. 720 capsule PRN ??? Insulin Lispro (HUMALOG) 100 unit/mL Insulin Pen Inject 30-40 Units subcutaneously 4 times daily. ??? BD INSULIN PEN NEEDLE UF ORIG 29 gauge x 1/2 Needle 0 ??? propranolol (INDERAL LA) 160 mg Capsule,Sustained Action 24 hr Take 160 mg by mouth 3 times daily. 0 ??? Insulin [place], Disposable, (BD INSULIN PEN NEEDLE UF SHORT) [...] Take 40 mg by mouth daily. ??? chlorhexidine (HIBICLENS) 4 % Liquid Apply topically daily as needed. 120 mL 0 No current facility-administered medications on file prior to visit. ? Allergies / ADRs: Allergies Allergen Reactions ??? Penicillins Anaphylaxis ??? Iftikhar Inhibitors ? Cough ??? Clindamycin Hcl Rash ??? Allergenic Extracts ? Birch and Nut Trees, cats, dust, pollen ? PHYSICAL EXAM: Vitals Office Visit from 08/06/2016 in Transplant Weight - Scale (!) 165.1 kg (364 lb) [patient states without prostetics 1 week ago] Temp 36.7 ??C (98.1 ??F) Temp Source Oral Heart Rate 62 Resp 12 BP 124/59 Patient Position Sitting SpO2 96 % ?? Gen - AAO x 3 in NAD [...] wrapped in bandages. He wears prosthetic limbs. ?? Labs/ Imaging: Recent Results (from the past 72 hour(s)) Protein/Creatinine Ratio, urine Result Value U Creatinine 107 U Protein Ran 18 (H) Prot/Cre Ratio 0.2 Urinalysis with reflex Culture Result Value Glucose UA 50 (A) Protein UA 30 (A) Bilirubin UA Negative Urobilinogen UA Normal pH UA 6.0 Blood UA Negative Ketones UA Negative Nitrite UA Negative Leukocytes UA Negative Appearance UA Clear Spec [place] UA 1.013 Color UA Yellow RBC UA 1 WBC UA 2 Squam Epith UA 1 Hyaline Cast UA 12 (H) Culture Reflexed No Reticulocyte Count Result Value Retic Ct % 2.8 (H) Retic Ct Abs 0.110 Immature Retic% 15.7 (H) Reticulated Hgb 33.2 Tacrolimus level Result Value Tacrolimus Lvl 5.5 Uric acid Result Value Uric Acid 12.1 (H) Cholesterol, total Result Value Chol, Total 90 Lipid Interpretation See Note Comprehensive metabolic panel (non-fasting) Result Value Glucose Lvl 239 (H) BUN 43 (H) Creatinine 2.23 (H) Sodium 141 Potassium 4.4 Chloride 103 CO2 24 Anion Gap 14 Calcium 9.5 Total Protein 8.3 (H) Albumin 3.6 AST 12 ALT 11 Alk Phos 114 Total Bilirubin 0.5 Bili, Direct 0.2 Estimated GFR 30 (L) Magnesium Result Value Magnesium 0.75 Phosphorus Result Value Phosphorus 3.8 Hemogram Result Value WBC 7.3 RBC 3.97 (L) Hemoglobin 12.2 (L) Hematocrit 37.7 (L) MCV 95.0 (H) MCH 30.7 MCHC 32.4 Platelets 233 RDWSD 44.8 RDWCV 12.9 MPV 8.6 nRBC % Auto 0.0 nRBC Abs Auto 0.000 Differential, Automated Result Value Neutrophils % 52.6 Neutr Abs (ANC) 3.84 Lymphocytes % 32.1 Lymphocytes Abs 2.4 Monocytes % 9.7 Monocyte Abs 0.7 Eosinophils % 4.5 Eosinophils Abs 0.3 Basophils % 1.0 Basophils Abs 0.1 Immature Gran % 0.10 Courtney Gran Abs 0.01 ? Impression/ Plan: Leroy Torres is Status Post Kidney transplantation. Mr. Leroy Torres's renal function has deteriorated, likely due to dehydration. Patient is encouraged to continue with 3 +liters of fluid intake per day. I also encouraged patient to keep up with all recommended health maintenance visits, routine lab testing and screenings. ?? Diabetes Uncontrolled; Diabetes poorly controlled; recent Hba1c 8.8. Follow up endocrinology. Hypercholesterolemia Total cholesterolemia 90 ?? Graft function: Rise in creat seems secondary to dehydration; recent course of antibiotics can be a cause of ATN. His losartan was reduced due to an episode of hyperkalemia. Will continue same dose but hydration is not enough. He needs to increased his fluid intake. ?? Immunosuppression: Prograf: 1mg twice daily. Cellcept: 500mg twice daily. Prograf level 5.5 today. ?? Hypertension Management: Good ?? Hyperlipidemia Management: Continue atorvastatin ?? Calcium and phosphorous Management: 9.5/3.8 ?? Magnesium Management: Mag 0.75 ?? All age appropriate and post-transplant, routine health maintenance tests and screenings are strongly recommended. These include the above (noting that the time intervals are different than that of thenon-transplant community,) but are not limited to, the for mentioned. ?? Follow up: 6 months with repeat labs ? Seen and Discussed w/ Dr. Garnett ?? I reviewed all of the above findings and assessment of Dr. Elizabeth, edited the above note to reflect myassessment and examination and formulated the recommendations which accurately reflect mine. documented in this encounter Plan of Treatment Upcoming Encounters Date Type Specialty Care Team Description 05/26/2022 Office Visit Otolaryngology Ricardo Panda PA [facility] STE[place]A [place] 0375 (Wo gregg) 06/02/2022 Infusion Hematology and Oncology 06/16/2022 Infusion Hematology and Oncology 06/21/2022 Office Visit Neurology Tyler Rojas MD [facility] Dr [address] [place] 0375 6-2022 (Wo rk) 06/30/2022 Infusion Hematology and Oncology 07/14/2022 Infusion Hematology and Oncology 07/28/2022 Infusion Hematology and Oncology 08/11/2022 Infusion Hematology and Oncology 11/04/2022 Office Visit Rheumatology Dante Freedman PA [facility] [address] [place] [address] (Wo rk) documented as of this encounter Results (ABNORMAL) Uric acid (08/06/2016 7:41 AM EST) athologist [facility] Uric Acid 12.1 (H) 3.5 - 8.5 [facility] mg/dL [facility] Specimen Anatomical Collection Method Collection Time Receive d Time (Source) Location / / Volume Laterality Blood specimen 08/06/2016 7:41 AM 017 7:44 (specimen) EST AM EST Resulting Agency Comment Spec In Lab Alejo Garnett MD CHEMISTRY ORDERABLES Performing Organization Address City/State/[place] [address] Tacrolimus level (08/06/2016 7:41 AM EST) athologist [facility] Tacrolimus Lvl 5.5 ng/mL [facility] Comment: Trough therapeutic: ??5-15 ng/mL Performed by ultra-performance liquid ch romatography tandem mass spectrometry (UPLCMS/MS). Specimen Anatomical Collection Method Collection Time Receive d Time (Source) Location / / Volume Laterality Blood specimen 08/06/2016 7:41 AM 017 (specimen) EST 10:15 AM EST Resulting Agency Comment Spec In Lab Alejo Garnett MD CHEMISTRY ORDERABLES Performing Organization Address City/State/[place] [address] (ABNORMAL) Reticulocyte Count (08/06/2016 7:41 AM EST) [facility] gist Method Time Signature Retic Ct % 2.8 (H) 0.7 - 2.6 [facility] Retic Ct Abs 0.110 0.030 - [place] GARRISON 0.120 [facility] x10(6)/[facility] L LABORATORY Immature Retic% 15.7 (H) 0.0 - [place] 15.6 % [facility] Reticulated Hgb 33.2 31.3 - [place] G[place]ISON 40.2 pg [facility] Specimen Anatomical Collection Method Collection Time Receive d Time (Source) Location / / Volume Laterality Blood specimen 08/06/2016 7:41 AM 017 7:44 (specimen) EST AM EST Resulting Agency Comment Spec In Lab Alejo Garnett MD HEMATOLOGY ORDERABLES Performing Organization Address City/[facility]/ZIP Code Phon e Number [address] Phosphorus (08/06/2016 7:41 AM EST) P athologist Signature Phosphorus 3.8 2.5 - 4.5 [facility] mg/dL [facility] Specimen Anatomical Collection Method Collection Time Receive d Time (Source) Location / / Volume Laterality Blood specimen 08/06/2016 7:41 AM 017 7:44 (specimen) EST AM EST Resulting Agency Comment Spec In Lab Alejo Garnett MD CHEMISTRY ORDERABLES Performing Organization Address City/[facility]/ZIP Code Phon e Number [address] Magnesium (08/06/2016 7:41 AM EST) P athologist Signature Magnesium 0.75 0.69 - 1.07 [facility] MELI mmol/L [facility] Specimen Anatomical Collection Method Collection Time Receive d Time (Source) Location / / Volume Laterality Blood specimen 08/06/2016 7:41 AM 017 7:44 (specimen) EST AM EST Resulting Agency Comment Spec In Lab Alejo Garnett MD CHEMISTRY ORDERABLES Performing Organization Address City/[facility]/ZIP [facility] Phon e Number [address] (ABNORMAL) Comprehensive metabolic panel (non-fasting) (08/06/2016 7:41 AM EST) P athologist Signature Glucose Lvl 239 (H) 65 - 199 [facility] mg/dL [facility] Comment: Diabetes: >=200 mg/dL plus symp toms BUN 43 (H) 10 - 20 mg/dL [facility] Creatinine 2.23 (H) 0.80 - 1.50 mg/dL [facility] Comment: Please note that the pediatric reference intervals supplied above were not validated at [facility] [place] [place]. Results from pediatri c patients should be interpreted in conjunction to the patient's age, height and muscle mass. Sodium 141 135 - 145 mmol/L [facility] Potassium 4.4 3.5 - 5.0 mmol/L [facility] Comment: Please note: ??Patients with WBC >100,00 0 may have falsely elevated Potassium levels. ??For accurate Potassium quantif ication in these patients send serum separator tube (gold top) for subsequent determinations. ??Contact the Clinical Chemistry Laboratory if there are any qu estions. Chloride 103 98 - 107 mmol/L [facility] CO2 24 22 - 31 mmol/L [facility] Anion Gap 14 5 - 15 mmol/L [facility] Calcium 9.5 8.5 - 10.5 mg/dL [facility] Total Protein 8.3 (H) 6.1 - 8.0 gm/dL [facility] Albumin 3.6 3.2 - 5.2 gm/dL [facility] AST 12 0 - 39 unit/L [facility] ALT 11 0 - 55 unit/L [facility] Alk Phos 114 40 - 120 unit/L [facility] Total Bilirubin 0.5 0.2 - 1.3 mg/dL [facility] Bili, Direct 0.2 0.0 - 0.3 mg/dL [facility] Estimated GFR 30 (L) >=60 [facility] Comment: This estimated GFR (eGFR) [...] the following links into your internet browser. [email or web address] Specimen Anatomical Collection Method Collection Time Receive d Time (Source) Location / / Volume Laterality Blood specimen 08/06/2016 7:41 AM 017 7:44 (specimen) EST AM EST Resulting Agency Comment Spec In Lab Alejo Garnett MD CHEMISTRY ORDERABLES Performing Organization Address City/State/[place] [address] Cholesterol, total (08/06/2016 7:41 AM EST) [facility] gist Method Time Signature Chol, Total 90 <=239 [place] mg/dL [facility] Lipid See Note [place] Interpretation [facility] Comment: Lipid management should be guided by a p atient? s ASCVD risk, goals and preferences. ACC/AHA Guidelines recommend high intens ity statin if clinical ASCVD or LDL greater than or equal to 190 mg/dL. http://circ.ahajournals.org/content/felix y/.cir.5217999239.49921.7a Adults aged 40-75 with LDL 70-189 mg/dL should have their 10 year ASCVD risk estimated with the ACC/AHA ASCVD risk es timator http://tools.acc.org/EHWFO-Nsci-Kqhnnmgc r/ Statin should be discussed if risk [...] Location / / Volume Laterality Blood specimen 08/06/2016 7:41 AM 017 7:44 (specimen) EST AM EST Resulting Agency Comment Spec In Lab Alejo Garnett MD CHEMISTRY ORDERABLES Performing Organization Address City/State/ZIP Code Phon e Number [facility] [place] [address] (ABNORMAL) Urinalysis with reflex Culture (08/06/2016 7:38 AM EST) [facility] Method Time Signature Glucose UA 50 (A) Negative [facility] mg/dL [facility] Protein UA 30 (A) Negative [facility] mg/dL [facility] Bilirubin UA Negative Negative [facility] mg/dL [facility] Comment: Clinical correlation required for positi ve Urine Bilirubin results as false positive may occur with some drugs and d rug related products. If a false positive is suspected a serum total bili reyna should be considered if clinically indicated. Urobilinogen UA Normal Normal mg/dL [facility] pH UA 6.0 5.0 - 8.0 [facility] Blood UA Negative Negative mg/dL [facility] Ketones UA Negative Negative mg/dL [facility] Nitrite UA Negative Negative [facility] Leukocytes UA Negative Negative [facility] Appearance UA Clear Clear [facility] Spec [place] UA 1.013 1.002 - 1.030 [facility] Color UA Yellow Yellow [facility] RBC UA 1 0 - 3 /HPF [facility] WBC UA 2 0 - 3 /HPF [facility] Squam Epith UA 1 <=4 /HPF [facility] Hyaline Cast UA 12 (H) 0 - 2 /LPF [facility] Culture Reflexed No [facility] Specimen (Source) Anatomical Collection Method Collection Time Re ceived Time Location / / Volume Laterality Urine specimen 08/06/2016 7:38 08/06/2016 7:44 obtained by clean AM EST AM EST catch procedure (specimen) Resulting Agency Comment Spec In Lab Alejo Garnett MD URINE ORDERABLES Performing Organization Address City/State/[place] [address] (ABNORMAL) Protein/Creatinine Ratio, urine (08/06/2016 7:38 AM EST) P athologist Signature U Creatinine 107 mg/dL [facility] U Protein Ran 18 (H) 0 - 12 [facility] mg/dL [facility] Prot/Cre Ratio 0.2 ratio [facility] Specimen Anatomical Collection Method Collection Time Receive d Time (Source) Location / / Volume Laterality Urine specimen 08/06/2016 7:38 AM 017 7:45 (specimen) EST AM EST Resulting Agency Comment Spec In Lab Alejo Garnett MD URINE ORDERABLES Performing Organization Address City/[facility]/[place] [address] documented in this encounter Visit Diagnoses Diagnosis Kidney replaced by transplant Aftercare following organ transplant H/O kidney transplant Kidney replaced by transplant Immunosuppression Unspecified disorder of immune mechanism documented in this encounter Care Teams Travelers' Aid Worker Relationship Specialty Start Date End Date Violetta Sanford MD PCP - General 04/02/14 [address] [place] [address] documented as of this encounter
--- OUTSIDE RECORDS SUMMARY | 2022-05-24 10:54 | XMS_ITS | Encounter Summary ---
:1955 Author Organization [place] [address] Care Team Providers Name Role Phone Violetta Sanford MD Primary Care Provider Encounter Details Date Type Department Care Team Description 03/20/2015 Telephone Solid Organ Transplant [place] [address] Social History Tobacco Use Types Packs/Day Years [...] Miscellaneous Notes Telephone Encounter - Aria Khan LPN - 03/20/2015 4:56 PM EDT Pt sister Lizet called concerned regarding new medication Lipitor causing some bad side effects. Per sister pt is experiencing photosensitivity, blurred vision and headache. Per Dr. Garnett stop the Lipitor and call us in 24 hours if symptoms do not resolve. Relayed information to Lizet, no further questions or concerns at this time. Aria Khan LPN Solid Organ Transplant documented in this encounter Plan of Treatment Upcoming Encounters Date Type Specialty Care Team Description 05/26/2022 Office Visit Otolaryngology Ricardo Panda PA [facility] [address] [place] [address] (Wo rk) 06/02/2022 Infusion Hematology and Oncology 06/16/2022 Infusion Hematology and Oncology 06/21/2022 Office Visit Neurology Tyler Rojas MD [facility] Neurology [place], [place] [phone] (Wo rk) 06/30/2022 Infusion Hematology and Oncology 07/14/2022 Infusion Hematology and Oncology 07/28/2022 Infusion Hematology and Oncology 08/11/2022 Infusion Hematology and Oncology 11/04/2022 Office Visit Rheumatology Dante Freedman PA [facility] RHEUMAT[facility] [place], [place] [address] (Wo rk) documented as of this encounter Visit Diagnoses Not on filedocumented in this encounter Care Teams Marine Electrician Apprentice Relationship Specialty Start Date End Date Violetta Sanford MD PCP - General 04/02/14 [address] [place] [address] documented as of this encounter
--- OUTSIDE RECORDS SUMMARY | 2022-05-24 10:54 | XMS_ITS | Encounter Summary ---
:1955 Author Organization [facility] Address [address] [place] [address] Care Team Providers Name Role Phone Violetta Sanford MD Primary Care Provider Reason for Visit Reason Comments Kidney Transplant Follow-up Immunotherapy Encounter Details Date Type Department Care Team Description 01/05/2016 Office Visit Solid Organ Alejo Garnett Aftercare following organ transplant; Transplant at [facility] MD Thang Prophylactic immunotherapy; [facility] H/O kidney transplant [place] [id number] [place] [address] [phone] Social History Tobacco Use Types Packs/Day Years [...] Sign Reading Time Taken Comments Blood Pressure 149/60 01/05/2016 10:18 AM EDT Pulse 65 01/05/2016 10:18 AM EDT Temperature 36.7 ??C (98.1 ??F) 01/05/2016 10:18 AM EDT Respiratory Rate - - Oxygen Saturation - - Inhaled Oxygen Concentration - - Weight 155.1 kg (342 lb) 01/05/2016 10:18 AM EDT Height - - Body Mass Index 41.63 12/02/2015 10:53 AM EDT documented in this encounter Progress Notes Carl Bradshaw MD - 01/05/2016 10:18 AM EDT [facility] Transplant Nephrology Follow Up Leroy Dailey [id number] 1955 Transplant ID: Date: 01/05/2016 Patient: Leroy Dailey Transplant Date: 02/29/08 Organ(s) [facility] [place] organ diagnosis: Diabetes Mellitus - Type II From Transplant: 7 years 10 months Transplant ID: Mr. Leroy Dailey is a White Not nor 60 y.o. male who is Status Post Kidney transplantation. Patient referred by Dr. Xiao. Mr. Leroy Dailey presents to clinic forroutine follow-up of care, for Kidney transplantation. He underwent a hydrocelectomy 2 years ago History of Present Illness: Mr. Dailey is here today for a routine follow up at 7 years. He is here early because Dr Hernandez noted his creat to be elevated. Interim : Trouble sleeping at night. MELISSA was diagnosed and Manager Paid ordered CPAP machine at night with shanita for him Got last mar 2015 have been travelling a lot since then >2 L per day Has meagan having pain at left stump x 2 months Losartan was increased to 100 by PCP Stopped drinking diet soda Following was addressed with the patient Healthcare maintenance for a transplant recipient: Immunizations [...] every 5 for non diabetics done 03/21/2015 [place] kidney ultrasound looking for renal cell CA, every 5 years post transplant Bone density assessment every 9-12 years post transplant Annual fasting lipid profile Annual PTH-Vit D3 assessment until normalized Annual 24 hour timed urine for creatinine, protein, calcium, phosphate, magnesium PMHx: ?? 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 Diabetes Mellitus ?? S/p bilateral BKA ?? Asthma, nasal polyps. ?? Essential tremor. ?? Hypertension. ?? GERD. ?? Chronic large Hydrocele ROS: Denies fevers, chills, nausea, vomiting, diarrhea, abd pain, chest pain, sob. Medications: Prior to Admission medications Medication Sig Start Date End Date Taking? Authorizing Provider LEVEMIR FLEXTOUCH Insulin Pen INJECT 60 UNITS IN MORNING AND 70 UNITS AT NIGHT 12/24/15 Donell Hernandez MD atorvastatin (LIPITOR) 20 mg Tablet Take 20 mg by mouth daily. PROVIDER, HISTORICAL glucagon, human recombinant, 1 mg Kit Inject into the muscle. PROVIDER, HISTORICAL ipratropium-albuterol (DUONEB) 0.5 mg-3 mg(2.5 mg base)/3 mL Solution for Nebulization 12/01/15 PROVIDER, HISTORICAL STIOLTO RESPIMAT 2.5-2.5 mcg/actuation Mist 11/27/15 PROVIDER, HISTORICAL Miscellaneous Medical Supply [facility] Devices by [facility]Non-Drug; Combo Route) route daily. Rubber sheath for leg prosthesis (2 pairs) 12/02/15 Donell Hernandez MD VENTOLIN HFA 90 mcg/actuation HFA Aerosol Inhaler Inhale 2 puffs into the lungs as needed. 10/17/15 PROVIDER, HISTORICAL losartan (COZAAR) 50 mg Tablet Take 50 mg by mouth daily. 10/04/15 PROVIDER, HISTORICAL DULERA 200-5 mcg/actuation HFA Aerosol Inhaler Inhale 2 puffs into the lungs 2 times daily. 10/30/15 PROVIDER, HISTORICAL gabapentin (NEURONTIN) 300 mg Capsule Take 3 capsules by mouth 3 times daily. 11/12/15 Angel Boyd MD Insulin Lispro (HUMALOG) 100 unit/mL Insulin Pen Inject 30-40 Units subcutaneously 4 times daily. PROVIDER, HISTORICAL BD INSULIN PEN NEEDLE UF ORIG 29 gauge x 1/2 Needle 03/28/15 PROVIDER, HISTORICAL propranolol (INDERAL LA) 160 mg Capsule,Sustained Action 24 hr Take 160 mg by mouth daily. 04/01/15 PROVIDER, HISTORICAL PROGRAF 1 mg Capsule Take 1 capsule by mouth 2 times daily. KIDNEY TRANSPLANT V42.0. TRANSPLANT DATE- 02/29/2008 03/08/15 Angel Mccann MD CELLCEPT 250 mg Capsule Take 2 capsules by mouth 2 times daily. Kidney Transplant V42.0. Transplant Date; 02-29-08 03/08/15 Angel Mccann MD Insulin [place], Disposable, (BD INSULIN PEN NEEDLE UF SHORT) 31 X 12/07 Needle Form faxed for new Rx to [facility] 04/19/14 Donell Hernandez MD fluticasone (FLONASE) 50 mcg/actuation nasal spray 2 sprays by Each Nare route as needed. 01/18/14 Donell Hernandez MD MULTIVITS-MINERALS/FA/LYCOPENE (ONE-A-DAY MEN'S MULTIVITAMIN ORAL) Take by mouth daily. PROVIDER, HISTORICAL aspirin 81 mg EC tablet Take 81 mg by mouth daily. PROVIDER, HISTORICAL folic acid (FOLVITE) 1 mg tablet Take 2 mg by mouth daily. PROVIDER, HISTORICAL montelukast (SINGULAIR) 10 mg tablet Take 10 mg by mouth daily. PROVIDER, HISTORICAL omeprazole (PRILOSEC) 40 mg capsule Take 40 mg by mouth daily. PROVIDER, HISTORICAL Allergies / ADRs: Allergies Allergen Reactions ??? Penicillins Anaphylaxis ??? Iftikhar Inhibitors Cough ??? Clindamycin Hcl Rash ??? Allergenic Extracts Birch and Nut Trees, cats, dust, pollen PHYSICAL EXAM: Vitals: 01/05/16 1018 BP: 149/60 Pulse: 65 Temp: 36.7 ??C (98.1 ??F) Gen - AAO x 3 in NAD obese wheelchair bound Skin - No exanthem. HEENT - Mucous membranes moist. Chest: Lungs clear to ausculatation w/o wheezes/ rhonchi/ crackles. Heart - S1 and S2 clear w/o murmur, gallop, or rub. JVP not elevated. Abd - Soft. + BS. No bruit. Non tender. No organomegaly. Ext - stump of bka has clotted blood but it does not seems infected Labs/ Imaging: Results for LEROY DAILEY ( ) as of 01/05/2016 11:48 Ref. Range 12/02/2015 10:02 01/05/2016 10:05 WBC Latest Ref Range: 4.0 - 10.0 x10(3)/mcL 7.3 RBC Latest Ref Range: 4.63 - 6.08 x10(6)/mcL 4.20 (L) Hemoglobin Latest Ref Range: 13.7 - 17.5 gm/dL 13.0 (L) Hematocrit Latest Ref Range: 40.0 - 51.0 % 40.9 MCV Latest Ref Range: 79.0 - 92.0 fL 97.4 (H) MCH Latest Ref Range: 25.6 - 32.2 pg 31.0 MCHC Latest Ref Range: 32.0 - 36.5 gm/dL 31.8 (L) RDWSD Latest Ref Range: 35.0 - 46.0 fL 51.3 (H) RDWCV Latest Ref Range: 10.9 - 14.4 % 14.6 (H) Platelets Latest Ref Range: 145 - 370 x10(3)/mcL 158 MPV Latest Ref Range: 9.0 - 12.0 fL 9.2 Plat Immature % Latest Ref Range: 0.0 - 7.4 % 1.[address] % Latest Ref Range: 0.5 - 2.4 % 3.0 (H) Retic Ct Abs Latest Ref Range: 0.027 - 0.095 x10(6)/mcL 0.130 (H) Immature Retic% Latest Ref Range: 2.3 - 15.9 % 19.9 (H) Reticulated Hgb Latest Ref Range: 28.5 - 38.9 pg 32.9 Neutr Abs (ANC) Latest Ref Range: 1.50 - 6.30 x10(3)/mcL 4.45 Neutrophils % Latest Units: % 61.1 Immature Gran % Latest Units: % 0.10 Lymphocytes % Latest Units: % 28.9 Monocytes % Latest Units: % 6.2 Eosinophils % Latest Units: % 3.3 Basophils % Latest Units: % 0.4 Courtney Gran Abs Latest Ref Range: 0.00 - 0.05 x10(3)/mcL 0.01 Lymphocytes Abs Latest Ref Range: 1.0 - 3.6 x10(3)/mcL 2.1 Monocyte Abs Latest Ref Range: 0.2 - 1.0 x10(3)/mcL 0.4 Eosinophils Abs Latest Ref Range: 0.0 - 0.5 x10(3)/mcL 0.2 Basophils Abs Latest Ref Range: 0.0 - 0.2 x10(3)/mcL 0.0 Sodium Latest Ref Range: 135 - 145 mmol/L 135 Potassium Latest Ref Range: 3.5 - 5.0 mmol/L 5.0 Chloride Latest Ref Range: 98 - 107 mmol/L 100 CO2 Latest Ref Range: 22 - 31 mmol/L 21 (L) Anion Gap Latest Ref Range: 5 - 15 mmol/L 14 BUN Latest Ref Range: 10 - 20 mg/dL 31 (H) Creatinine Latest Ref Range: 0.80 - 1.50 mg/dL 2.17 (H) 1.81 (H) Estimated GFR Latest Ref Range: >=60 31 (L) 38 (L) Glucose Lvl Latest Ref Range: 65 - 199 mg/dL 328 (H) Calcium Latest Ref Range: 8.5 - 10.5 mg/dL 9.5 Magnesium Latest Ref Range: 0.69 - 1.07 mmol/L 0.65 (L) Hemoglobin A1C Latest Ref Range: 4.3 - 5.6 % 7.9 (H) Est Avg Gluc Latest Units: mg/dL 180 Phosphorus Latest Ref Range: 2.5 - 4.5 mg/dL 3.3 Uric Acid Latest Ref Range: 3.5 - 8.5 mg/dL 7.3 Total Protein Latest Ref Range: 6.1 - 8.0 gm/dL 8.2 (H) Albumin Latest Ref Range: 3.2 - 5.2 gm/dL 3.6 Total Bilirubin Latest Ref Range: 0.2 - 1.3 mg/dL 0.4 Bili, Direct Latest Ref Range: 0.0 - 0.3 mg/dL 0.1 Alk Phos Latest Ref Range: 40 - 120 unit/L 131 (H) AST Latest Ref Range: 0 - 39 unit/L 14 ALT Latest Ref Range: 0 - 55 unit/L 27 Chol, Total Latest Ref Range: <=199 mg/dL 130 TSH Latest Ref Range: 0.27 - 4.20 mcIU/mL 1.44 Impression/ Plan: Leroy Dailey is Status Post Kidney transplantation. Mr. Leroy Dailey is maintaining excellent graft function. Patient remains well hydrated. Patient is encouraged to continue with 3 +liters of fluid intake per day. I also encouraged patient to keep up with all recommended health maintenance visits, routine lab testing and screenings. His issues are: 1)diabetic poor control; I suggested he continue seeing Dr Hernandez. 2)grossly abnl fasting lipid profile; we changed his simvastatin (weak statin to raise HDL) to atorvastatin 20 mg qhs; he has not been taking it 3)HCM needs A) colonoscopy: will make appointment B) dobutamine stress echo every 3 years is negative C)white earth renal U/S needs one 4)gaining wt 5)wound at stump: needs to clean his stump regularly with hibiclens. Needs new prosthesis. He needs to work with his insurance company. Graft function: Rise in creat seems secondary to increased dose of losartan is back to normal range Will continue same dose but hydration is not enough. He needs to increased his fluid intake. Immunosuppression: Prograf: 1mg twice daily. Cellcept: 500mg twice daily. Prograf level pending today Hypertension Management: Good Hyperlipidemia Management: Continue atorvastatin Calcium and phosphorous Management: Good Magnesium Management: fair All age appropriate and post-transplant, routine health maintenance tests and screenings are strongly recommended. These include the above (noting that the time intervals are different than that of thenon-transplant community,) but are not limited to, the for mentioned. Follow up: 12 months with repeat labs Seen and Discussed w/ Dr. Mariola Bradshaw MD Nephrology fellow Pager # [phone] I reviewed all of the above findings and assessment of Dr. Bradshaw, examined and formulated the recommendations which accurately reflect mine. documented in this encounter Plan of Treatment Upcoming Encounters Date Type Specialty Care Team Description 05/26/2022 Office Visit Otolaryngology Ricardo Panda PA [facility] [address] [place] [address] (Wo gregg) 06/02/2022 Infusion Hematology and Oncology 06/16/2022 Infusion Hematology and Oncology 06/21/2022 Office Visit Neurology Tyler Rojas MD [facility] [address] [place] [phone] (Wo rk) 06/30/2022 Infusion Hematology and Oncology 07/14/2022 Infusion Hematology and Oncology 07/28/2022 Infusion Hematology and Oncology 08/11/2022 Infusion Hematology and Oncology 11/04/2022 Office Visit Rheumatology Dante Freedman PA [facility] RHEUMATOLOGY [place] [address] [address] (Wo rk) documented as of this encounter Visit Diagnoses Diagnosis Aftercare following organ transplant Prophylactic immunotherapy Need for prophylactic immunotherapy H/O kidney transplant Kidney replaced by transplant documented in this encounter Care Teams Chief Operator Lock Tender Relationship Specialty Start Date End Date Violetta Sanford MD PCP - General 04/02/14 [address] [place] [address] documented as of this encounter
--- OUTSIDE RECORDS SUMMARY | 2022-05-24 10:54 | XMS_ITS | Encounter Summary ---
:1955 Author Organization [facility] [address] Care Team Providers Name Role Phone Violetta Sanford MD Primary Care Provider Reason for Visit Reason Comments Medication Refill Encounter Details Date Type Department Care Team Description 12/19/2015 Refill Endocrinology at [facility] Donell Hernandez MD [facility] [place] [address] ENDOCRINOLOGY DEPT. [phone] [place], [place] [address] (Wo rk) Social History Tobacco [...] 05/26/2022 Office Visit Otolaryngology Ricardo Panda PA [facility] [address] [place], [place] [address] (Wo rk) 06/02/2022 Infusion Hematology and Oncology 06/16/2022 Infusion Hematology and Oncology 06/21/2022 Office Visit Neurology Tyler Rojas MD [facility] er Neurology [place], [place] [phone] (Wo rk) 06/30/2022 Infusion Hematology and Oncology 07/14/2022 Infusion Hematology and Oncology 07/28/2022 Infusion Hematology and Oncology 08/11/2022 Infusion Hematology and Oncology 11/04/2022 Office Visit Rheumatology Dante Freedman PA [facility] RHEUMATOLOGY [place], [place] [address] (Wo rk) documented as of this encounter Visit Diagnoses Not on filedocumented in this encounter Care Teams Regional Climate Change Analyst Relationship Specialty Start Date End Date Violetta Sanford MD PCP - General 04/02/14 [address] [place] [address] documented as of this encounter
--- OUTSIDE RECORDS SUMMARY | 2022-05-24 10:54 | XMS_ITS | Encounter Summary ---
:1955 Author Organization [facility] Address [facility] [place] [address] Care Team Providers Name Role Phone Violetta Sanford MD Primary Care Provider Reason for Visit Reason Comments Diabetes Encounter Details Date Type Department Care Team Description 06/08/2016 Office Visit Endocrinology at [facility] Donell Hernandez, Uncontrolled type 2 diabetes mellitus with other specified complication; [facility] CKD (chronic kidney disease) stage 3, GF R 30-59 ml/min; Drive [facility] S/[place] [address] CENTER [phone] END[address]PT. [place] [address] Social History Tobacco Use Types Packs/Day Years [...] Sign Reading Time Taken Comments Blood Pressure 143/70 06/08/2016 10:48 AM EST Pulse 62 06/08/2016 10:48 AM EST Temperature - - Respiratory Rate - - Oxygen Saturation - - Inhaled Oxygen Concentration - - Weight 155.1 kg (342 lb) 06/08/2016 10:48 AM EST Height 193 cm (6' 4) 06/08/2016 10:48 AM EST Body Mass Index 41.63 06/08/2016 10:48 AM EST documented in this encounter Patient Instructions Patient InstructionsDonell Hernandez MD - 06/08/2016 11:00 AM EST I recommended going up to 50 of levemir in the am Stay with 80 of levemire in the pm Stay with 40-50 units of humalog for meals documented in this encounter Progress Notes Donell Hernandez MD - 06/08/2016 11:00 AM EST Year of diagnosis: Regimen ____ oral agents only ____ basal insulin __x__ basal and meal insulin/pump Diagnosis codes 250.03 ___ Type 1 250.02 __x__Type 2 Glucose test strip brand: one touch Number of Tests prescribed per day ___ 2 ___ 3 _x__ 4 ___ 5-8 ___>8 Prescriber: johnny Hernandez MD _YESSENIA Aguirre MD _ Angela Garnett MD _ Kimmy [...] and morbid obesity. From November 2014 1) dm2 This is much better than his usual control. He credits this to his local brand ambassador she's been telling me this for years, i just never did it. He is restricting cakes, pies and other sweets (but not donuts!). He has not dropped much weight compared to June but claims that he has lost 3 lbs of real weight. He is actually walking less due to a number of issues with the prosthesis. We did not make a change. My goal for him, after all of his complications , has been an HA1c under 8 %. Clearly if he remains diet compliant he could get under 7.5 % on this regimen 2) bilateral BKA - he has a roughed area at the tip of the femur stump with some callus and crackingof hypertrophied skin corresponding to a worn area of his rubber sleeve. It is uncomfortable. He needs new sleeves and wrote prescriptions for them - unfortunately the cost for him has been prohibitive(the copay is over $100 a sleeve) 3) transplant - his creatinine has bumped - I have asked my office to try to move up his appt with Dr Garnett 4) retinopathy - follows up regularly with ophthamology Now on CPAP - does not feel better Stump ulcers still there - still needs new sleeves- getting them today Regimen Basal levemir 45/80 bid Bolus humalog 40-50 units per meal (w snack) qid , takes less at lunch to avoid stacking Uses a sliding scale hbgm 2-3 x a day Usually 200's Hypo none Diet Avoiding sweets B 2 donut Sn L Mac and cheese salad Sn D Steak and peas Sn Exercise Not much Uses wheelchair complications Eyes prior laser therapy Feet Bilateral BKA Kidneys transplant - saw transplant team in February autonomic: no gastroparesis bladder hypo unaware tachycardia cardiac some chest pain on exertion + shortness of breath at rest No history of stent cabg chf prevention: last eye exam: Last week last microalbumin :2011 last Cr:today last lipid panel:2011 regular machine cell tuber:no special shoes:no flu shot :yes pneumovax: 2012 acei yes Asa Yes statin yes Your Medications These changes are accurate as of: 06/08/16 11:20 AM. If you have any questions, ask your nurse or doctor. Continued medications, unchanged Dose Details aspirin 81 mg Tbec Take 81 mg by mouth daily. 81 mg Refills: 0 atorvastatin 20 mg Tab Commonly known as: LIPITOR Take 20 mg by mouth daily. 20 mg Refills: 0 CELLCEPT 250 mg Cap Take 2 capsules by mouth 2 times daily. Kidney Transplant Z94.0. Transplant Date; 02-29-08 Generic drug: mycophenolate 500 mg Quantity: 120 capsule Refills: 11 chlorhexidine 4 % Liqd Commonly known as: HIBICLENS Apply topically daily as needed. Quantity: 120 mL Refills: 0 cholecalciferol (Vitamin D3) 2,000 unit Tab Take 2,000 Units by mouth daily. 2000 Units Refills: 0 DULERA 200-5 mcg/actuation Hfaa Inhale 2 puffs into the lungs 2 times daily. Generic drug: Mometasone-Formoterol 2 puff Refills: 0 fluticasone 50 mcg/actuation Spsn Commonly known as: FLONASE 2 sprays by Each Nare route as needed. 2 spray Quantity: 64 g Refills: 11 folic acid 1 mg Tab Commonly known as: FOLVITE Take 2 mg by mouth daily. 2 mg Refills: 0 gabapentin 300 mg Cap Commonly known as: NEURONTIN Take 3 capsules by mouth 3 times daily. 900 mg Quantity: 720 capsule Refills: PRN glucagon (human recombinant) 1 mg Kit Inject into the muscle. Refills: 0 Insulin Lispro 100 unit/mL Inpn Commonly known [...] Generic drug: insulin needles (disposable) Refills: 0 ipratropium-albuterol 0.5 mg-3 mg(2.5 mg base)/3 mL Nebu Commonly known as: DUONEB Refills: 1 LEVEMIR FLEXTOUCH Inpn INJECT 60 UNITS IN MORNING AND 70 UNITS AT NIGHT Generic drug: insulin detemir Quantity: 45 mL Refills: 11 losartan 50 mg Tab Commonly known as: COZAAR Take 50 mg by mouth daily. 50 mg Refills: 0 Miscellaneous Medical Supply [facility] 4 Devices by [facility].(Non-Drug; Combo Route) route daily. Rubber sheath for [...] KIDNEY TRANSPLANT Z94.0. TRANSPLANT DATE - 02/29/2008 Generic drug: tacrolimus 1 mg Quantity: 60 capsule Refills: 11 propranolol 160 mg Cs24 Commonly known as: INDERAL LA Take 160 mg by mouth 3 times daily. 160 mg Refills: 0 STIOLTO RESPIMAT 2.5-2.5 mcg/actuation Mist Generic drug: tiotropium-olodaterol Refills: 1 VENTOLIN HFA 90 mcg/actuation Hfaa Inhale 2 puffs into the lungs as needed. Generic drug: albuterol 2 puff Refills: 0 BP 143/70 Pulse 62 Ht (!) 193 cm (6' 4) Wt (!) 155.1 kg (342 lb) BMI 41.63 kg/m2 Home BP is 150/62 Home weigh tis down 3 lbs Weight is stable (up 3) Appearance: looks well eyes: old retinopathy seen by green light ext: R stump has a callus w crack towards distal end and a 3 cm diameter shallow circular blister base on the lateral side Recent Results (from the past 24 hour(s)) Creatinine Result Value Ref Range Creatinine 1.77 (H) 0.80 - 1.50 mg/dL Estimated GFR 39 (L) >=60 Hemoglobin A1c Result Value Ref Range Hemoglobin A1C 8.8 (H) 4.3 - 5.6 % Est Avg Gluc 206 mg/dL TSH Result Value Ref Range TSH 1.81 0.27 - 4.20 mcIU/mL Ref. Range 06/30/2015 09:09 12/02/2015 10:02 01/05/2016 10:05 06/08/2016 10:10 Creatinine Latest Ref Range: 0.80 - 1.50 mg/dL 1.77 (H) 2.17 (H) 1.81 (H) 1.77 (H) Estimated GFR Latest Ref Range: >=60 39 (L) 31 (L) 38 (L) 39 (L) Glucose Lvl Latest Ref Range: 65 - 199 mg/dL 328 (H) Calcium Latest Ref Range: 8.5 - 10.5 mg/dL 9.5 Magnesium Latest Ref Range: 0.69 - 1.07 mmol/L 0.65 (L) Hemoglobin A1C Latest Ref Range: 4.3 - 5.6 % 8.6 (H) 7.9 (H) 8.8 (H) Est Avg Gluc Latest Units: mg/dL 200 180 206 1) DM2- his diabetes control is stable [...] for meals We peter use 10 PM NPHJ in addition to his levemire if these changes do not get the HA1c under 8.5 % 2) bilateral BKA- getting new liners today to help with chronic ulcerations 3) history of renal transplant 4) sleep apnea 5) past treatment for retinopathy 6) morbid obesity documented in this encounter Plan of Treatment Upcoming Encounters Date Type Specialty Care Team Description 05/26/2022 Office Visit Otolaryngology Ricardo Panda PA [facility] [address] [place] [address] (Wo rk) 06/02/2022 Infusion Hematology and Oncology 06/16/2022 Infusion Hematology and Oncology 06/21/2022 Office Visit Neurology Tyler Rojas MD [facility] Neurology [place], [place] [phone] (Wo rk) 06/30/2022 Infusion Hematology and Oncology 07/14/2022 Infusion Hematology and Oncology 07/28/2022 Infusion Hematology and Oncology 08/11/2022 Infusion Hematology and Oncology 11/04/2022 Office Visit Rheumatology Dante Freedman PA [facility] RHEUMATOLOGY [place], [place] [address] (Wo rk) documented as of this encounter Results LDL Cholesterol, Direct (12/07/2016 10:34 AM EDT) athologist Signature LDL Chol 54 <=190 JERE GARRISON Direct mg/dL [facility] Specimen Anatomical Collection Method Collection Time Receive d Time (Source) Location / / Volume Laterality Blood specimen 12/07/2016 10:34 7 (specimen) AM EDT 10:39 AM EDT Resulting Agency Comment Spec In Lab Donell Hernandez MD CHEMISTRY ORDERABLES Performing Organization Address City/State/[place] [address] TSH (12/07/2016 10:34 AM EDT) athologist Signature TSH 1.93 0.27 - 4.20 JERE GARRISON mcIU/mL [facility] Specimen Anatomical Collection Method Collection Time Receive d Time (Source) Location / / Volume Laterality Blood specimen 12/07/2016 10:34 7 (specimen) AM EDT 10:39 AM EDT Resulting Agency Comment Spec In Lab Donell Hernandez MD CHEMISTRY ORDERABLES Performing Organization Address City/State/ZIP Code Phon e Number [address] (ABNORMAL) Creatinine (12/07/2016 10:34 AM EDT) athologist [facility] Creatinine 1.83 (H) 0.80 - JERE GARRISON 1.50 mg/dL [facility] Comment: Please note that the pediatric reference intervals supplied above were not validated at [facility]. Results from pediatri c patients should be interpreted in conjunction to the patient's age, height and muscle mass. Estimated GFR 38 (L) >=60 [facility] Comment: This estimated GFR [...] the following links into your internet browser. [email or web address] Specimen Anatomical Collection Method Collection Time Receive d Time (Source) Location / / Volume Laterality Blood specimen 12/07/2016 10:34 7 (specimen) AM EDT 10:39 AM EDT Resulting Agency Comment Spec In Lab Donell Hernandez MD CHEMISTRY ORDERABLES Performing Organization Address City/State/ZIP [place] [address] (ABNORMAL) Hemoglobin A1c (12/07/2016 10:34 AM EDT) Analysis Performed At Patho logist Time Signature Hemoglobin A1C 8.6 (H) 4.3 - 5.6 [facility] [...] Mellitus, Diabetes Care 2013; 36: Suppl. 1, W17-23 Est Avg Gluc 200 mg/dL [facility] Comment: eAG equivalents for HbA1c percentages: HbA1c(%) ?eAG(mg/dL) 6.0 ?126 6.5 ?140 7.0 ?154 7.5 ?169 8.0 ?183 8.5 ?197 9.0 ?212 9.5 ?226 10.0 ? 240 Limitations: The eAG calculation has not been validated on women, individuals below 18 years old and above 70 years old, and individuals with hemoglobinopathies. Additional resources are available on [facility] website. Scooyb MALDONADO, Nba J, Sydnee R, et al. ??Tr anslating the A1C assay into estimated average glucose values. ??Diabetes Care 2008:31(8):8500-1609. Specimen Anatomical Collection Method Collection Time Receive d Time (Source) Location / / Volume Laterality Blood specimen 12/07/2016 10:34 7 (specimen) AM EDT 10:39 AM EDT Resulting Agency Comment Spec In Lab Donell Hernandez MD CHEMISTRY ORDERABLES Performing Organization Address City/State/[place] [address] documented in this encounter Visit Diagnoses Diagnosis Uncontrolled type 2 diabetes mellitus wi th other specified complication CKD (chronic kidney disease) stage 3, GF R 30-59 ml/min Chronic kidney disease, Stage III (moder ate) S/P bilateral below knee amputation Lower limb amputation, below knee documented in this encounter Care Teams Electronics Specialist Relationship Specialty Start Date End Date Violetta Sanford MD PCP - General 04/02/14 [address] [place] [address] documented as of this encounter
--- OUTSIDE RECORDS SUMMARY | 2022-05-24 10:54 | XMS_ITS | Encounter Summary ---
:1955 Author Organization [facility] [place] [address] Care Team Providers Name Role Phone Violetta Sanford MD Primary Care Provider Reason for Visit Reason Onset Date Comments Medication Refill 02/02/2016 Encounter Details Date Type Department Care Team Description 02/02[facility] [place] [address] Social History Tobacco Use Types Packs/Day [...] Panda PA [facility] [address] [place] [address] (Wo rk) 06/02/2022 Infusion Hematology and Oncology 06/16/2022 Infusion Hematology and Oncology 06/21/2022 Office Visit Neurology Tyler Rojas MD [facility] [address] [phone] (Wo rk) 06/30/2022 Infusion Hematology and Oncology 07/14/2022 Infusion Hematology and Oncology 07/28/2022 Infusion Hematology and Oncology 08/11/2022 Infusion Hematology and Oncology 11/04/2022 Office Visit Rheumatology Dante Freedman PA [facility] RHEUMATOLOGY [place], [place] [address] (Wo rk) documented as of this encounter Visit Diagnoses Diagnosis Transplanted kidney Kidney replaced by transplant documented in this encounter Care Teams Railroad Brakeman Relationship Specialty Start Date End Date Violetta Sanford MD PCP - General 04/02/14 [address] [place] [address] documented as of this encounter
--- OUTSIDE RECORDS SUMMARY | 2022-05-24 10:54 | XMS_ITS | Encounter Summary ---
:1955 Author Organization [facility] [place] [address] Care Team Providers Name Role Phone Violetta Sanford MD Primary Care Provider Encounter Details Date Type Department Care Team Description 01/05/2016 Laboratory Appointment Lab 3L Jere Cooper Kidney replaced by [facility] [phone] Social History Tobacco Use Types Packs/Day Years [...] Office Visit Otolaryngology Ricardo Panda PA [facility] er Dr [place] [address] (Wo rk) 06/02/2022 Infusion Hematology and Oncology 06/16/2022 Infusion Hematology and Oncology 06/21/2022 Office Visit Neurology Tyler Rojas MD [facility] er Dr [place] [phone] (Wo rk) 06/30/2022 Infusion Hematology and Oncology 07/14/2022 Infusion Hematology and Oncology 07/28/2022 Infusion Hematology and Oncology 08/11/2022 Infusion Hematology and Oncology 11/04/2022 Office Visit Rheumatology Dante Freedman PA [facility] [address] [place] [address] (Wo rk) documented as of this encounter Procedures Procedure Name Priority Date/Time Associated Comments Diagnosis HEMOGRAM STAT 01/05/2016 10:05 Kidney replaced by Resul ts for this AM EDT transplant procedure are i n the results section. DIFFERENTIAL, STAT 01/05/2016 10:05 Kidney replaced by Resu lts for this AUTOMATED AM EDT transplant procedure are i n the results section. TACROLIMUS LEVEL STAT 01/05/2016 10:05 Kidney replaced by R esults for this AM EDT transplant procedure are i n the results section. RETICULOCYTE COUNT STAT 01/05/2016 10:05 Kidney replaced by Results for this AM EDT transplant procedure are i n the results section. CBC (WITH DIFF) STAT 01/05/2016 10:05 Kidney replaced by AM EDT transplant URIC ACID STAT 01/05/2016 10:05 Kidney replaced by Resul ts for this AM EDT transplant procedure are i n the results section. PHOSPHORUS STAT 01/05/2016 10:05 Kidney replaced by Resul ts for this AM EDT transplant procedure are i n the results section. MAGNESIUM STAT 01/05/2016 10:05 Kidney replaced by Resul ts for this AM EDT transplant procedure are i n the results section. CHOLESTEROL, TOTAL STAT 01/05/2016 10:05 Kidney replaced by Results for this AM EDT transplant procedure are i n the results section. COMPREHENSIVE STAT 01/05/2016 10:05 Kidney replaced by Resu lts for this METABOLIC PANEL AM EDT transplant procedure ar e in (NON-FASTING) the results section. documented in this encounter Results Differential, Automated (01/05/2016 10:05 AM EDT) P athologist Signature Neutrophils % 61.1 % [facility] Neutr Abs (ANC) 4.45 1.50 - [facility] [address] [facility] x10(3)/[facility] LABORATORY Lymphocytes % 28.9 % [facility] Lymphocytes Abs 2.1 1.0 - 3.6 [facility] x10(3)/[facility] LABORATORY Monocytes % 6.2 % [facility] Monocyte Abs 0.4 0.2 - 1.0 [facility] x10(3)/[facility] LABORATORY Eosinophils % 3.3 % [facility] Eosinophils Abs 0.2 0.0 - 0.5 [facility] x10(3)/[facility] LABORATORY Basophils % 0.4 % [facility] Basophils Abs 0.0 0.0 - 0.2 [facility] x10(3)/[facility] LABORATORY Immature Gran % 0.10 % [facility] Comment: Immature granulocytes(IG's)percentage an d absolute count will include metamyelocytes, myelocytes, and promyelo cytes. Blood smears from CBCs yielding IG's will be scanned manually for concor dance. If this scan disagrees with the automated IG or if promyelocytes are not ed, a manual differential will be performed. Courtney Gran Abs 0.01 0.00 - 0.05 x10(3)/[facility] Specimen Anatomical Collection Method Collection Time Receive d Time (Source) Location / / Volume Laterality Blood specimen 01/05/2016 10:05 6 (specimen) AM EDT 10:21 AM EDT Resulting Agency Comment Spec In Lab Alejo Garnett MD HEMATOLOGY ORDERABLES Performing Organization Address City/State/[place] [address] (ABNORMAL) Hemogram (01/05/2016 10:05 AM EDT) P athologist Signature WBC 7.3 4.0 - 10.0 [facility] x10(3)/[facility] LABORATORY RBC 4.20 (L) 4.63 - [facility] 6.08 [facility] x10(6)/[facility] LABORATORY Hemoglobin 13.0 (L) 13.7 - [facility] 17.5 gm/dL [facility] Hematocrit 40.9 40.0 - [facility] 51.0 % [facility] MCV 97.4 (H) 79.0 - JERE COOPER 92.0 [facility] LABORATORY MCH 31.0 25.6 - JERE COOPER 32.2 pg [facility] MCHC 31.8 (L) 32.0 - JERE COOPER 36.5 gm/dL [facility] Platelets 158 145 - 370 JERE CUEVASMELI x10(3)/[facility] LABORATORY RDWSD 51.3 (H) 35.0 - JERE COOPER 46.0 [facility] LABORATORY RDWCV 14.6 (H) 10.9 - JERE MELI 14.4 % [facility] MPV 9.2 9.0 - 12.0 [facility] LABOR[facility]ORY Specimen Anatomical Collection Method Collection Time Receive d Time (Source) Location / / Volume Laterality Blood specimen 01/05/2016 10:05 6 (specimen) AM EDT 10:21 AM EDT Resulting Agency Comment Spec In Lab Alejo Garnett MD HEMATOLOGY ORDERABLES Performing Organization Address City/State/[place] [address] (ABNORMAL) Comprehensive metabolic panel (non-fasting) (01/05/2016 10:05 AM EDT) athologist Signature Glucose Lvl 328 (H) 65 - 199 [facility] mg/dL [facility] Comment: Diabetes: >=200 mg/dL plus symp toms BUN 31 (H) 10 - 20 mg/dL [facility] Creatinine 1.81 (H) 0.80 - 1.50 mg/dL [facility] Comment: Please note that the pediatric reference intervals supplied above were not validated at [facility]. Results from pediatri c patients should be interpreted in conjunction to the patient's age, height and muscle mass. Sodium 135 135 - 145 mmol/L [facility] Potassium 5.0 3.5 - 5.0 mmol/L [facility] Comment: Please note: ??Patients with WBC >100,00 0 may have falsely elevated Potassium levels. ??For accurate Potassium quantif ication in these patients send serum separator tube (gold top) for subsequent determinations. ??Contact the Clinical Chemistry Laboratory if there are any qu estions. Chloride 100 98 - 107 mmol/L [facility] CO2 21 (L) 22 - 31 mmol/L [facility] Anion Gap 14 5 - 15 mmol/L [facility] Calcium 9.5 8.5 - 10.5 mg/dL [facility] Total Protein 8.2 (H) 6.1 - 8.0 gm/dL [facility] Albumin 3.6 3.2 - 5.2 gm/dL [facility] AST 14 0 - 39 unit/L [facility] ALT 27 0 - 55 unit/L [facility] Alk Phos 131 (H) 40 - 120 unit/L [facility] Total Bilirubin 0.4 0.2 - 1.3 mg/dL [facility] Bili, Direct 0.1 0.0 - 0.3 mg/dL [facility] Estimated GFR 38 (L) >=60 [facility] Comment: This estimated GFR (eGFR) [...] the following links into your internet browser. [email or web address] [email or web address] Specimen Anatomical Collection Method Collection Time Receive d Time (Source) Location / / Volume Laterality Blood specimen 01/05/2016 10:05 6 (specimen) AM EDT 10:21 AM EDT Resulting Agency Comment Spec In Lab Alejo Garnett MD CHEMISTRY ORDERABLES Performing Organization Address City/State/[place] [address] (ABNORMAL) Magnesium (01/05/2016 10:05 AM EDT) P athologist Signature Magnesium 0.65 (L) 0.69 - 1.07 [facility] mmol/L [facility] Specimen Anatomical Collection Method Collection Time Receive d Time (Source) Location / / Volume Laterality Blood specimen 01/05/2016 10:05 6 (specimen) AM EDT 10:21 AM EDT Resulting Agency Comment Spec In Lab Alejo Garnett MD CHEMISTRY ORDERABLES Performing Organization Address City/State/ZIP Code Phon e Number [address] Phosphorus (01/05/2016 10:05 AM EDT) athologist Signature Phosphorus 3.3 2.5 - 4.5 [facility] mg/dL [facility] Specimen Anatomical Collection Method Collection Time Receive d Time (Source) Location / / Volume Laterality Blood specimen 01/05/2016 10:05 6 (specimen) AM EDT 10:21 AM EDT Resulting Agency Comment Spec In Lab Alejo Garnett MD CHEMISTRY ORDERABLES Performing Organization Address City/State/ZIP Code Phon e Number [address] Uric acid (01/05/2016 10:05 AM EDT) athologist Signature Uric Acid 7.3 3.5 - 8.5 [facility] mg/dL [facility] Specimen Anatomical Collection Method Collection Time Receive d Time (Source) Location / / Volume Laterality Blood specimen 01/05/2016 10:05 6 (specimen) AM EDT 10:21 AM EDT Resulting Agency Comment Spec In Lab Alejo Garnett MD CHEMISTRY ORDERABLES Performing Organization Address City/State/ZIP Code Phon e Number [address] Tacrolimus level (01/05/2016 10:05 AM EDT) athologist Signature Tacrolimus Lvl 5.1 ng/mL [facility] Comment: Trough therapeutic: 5-15 ng/mL Specimen Anatomical Collection Method Collection Time Receive d Time (Source) Location / / Volume Laterality Blood specimen 01/05/2016 10:05 6 (specimen) AM EDT 11:42 AM EDT Resulting Agency Comment Spec In Lab Alejo Garnett MD CHEMISTRY ORDERABLES Performing Organization Address [facility]/ZIP [facility] Phon e Number [address] (ABNORMAL) Reticulocyte Count (01/05/2016 10:05 AM EDT) Patholo gist Method Time Signature Retic Ct % 3.0 (H) 0.5 - 2.4 [facility] Retic Ct Abs 0.130 (H) 0.027 - [facility] [address] [facility] x10(6)/[facility] L LABORATORY Immature Retic% 19.9 (H) 2.3 - [facility] 15.9 % [facility] Reticulated Hgb 32.9 28.5 - [facility] 38.9 [facility] LABORATORY Plat Immature % 1.0 0.0 - 7.4 [facility] Specimen Anatomical Collection Method Collection Time Receive d Time (Source) Location / / Volume Laterality Blood specimen 01/05/2016 10: 6 (specimen) AM EDT 10:21 AM EDT Resulting Agency Comment Spec In Lab Alejo Garnett MD HEMATOLOGY ORDERABLES Performing Organization Address City/[facility] [place] [address] Cholesterol, total (01/05/2016 10:05 AM EDT) P athologist Signature Chol, Total 130 <=199 mg/dL [facility] Comment: Recommendations of the NCEP Adult Treatm ent Panel for the following risk cutoff thresholds for the [place] populatio n: Desirable: <200 mg/dL Borderline High: 200-239 mg/dL High: > or = 240 mg/dL Specimen Anatomical Collection Method Collection Time Receive d Time (Source) Location / / Volume Laterality Blood specimen 01/05/2016 10:05 6 (specimen) AM EDT 10:21 AM EDT Resulting Agency Comment Spec In Lab Alejo Garnett MD CHEMISTRY ORDERABLES Performing Organization Address City/State/[place] [address] documented in this encounter Visit Diagnoses Diagnosis Kidney replaced by transplant documented in this encounter Care Teams Card Player Relationship Specialty Start Date End Date Violetta Sanford MD PCP - General 04/02/14 [address] [place] [address] documented as of this encounter
--- OUTSIDE RECORDS SUMMARY | 2022-05-24 10:54 | XMS_ITS | Encounter Summary ---
:1955 Author Organization [facility] Address [address] [place] [address] Care Team Providers Name Role Phone Violetta Sanford MD Primary Care Provider Encounter Details Date Type Department Care Team Description 03/17/2015 Follow-Up Solid Organ Transplant Alejo Garnett [place]; [place] [facility] [place] Need for prophylactic immunotherapy; [facility] Aft ercare following organ [place] [phone] TRANSPLANT SURGERY [phone] [place] [id number] (Wo rk) Social History Tobacco Use Types [...] Reading Time Taken Comments Blood Pressure 146/65 03/17/2015 10:05 AM EDT Pulse 67 03/17/2015 10:05 AM EDT Temperature - - Respiratory Rate 20 03/17/2015 10:05 AM EDT Oxygen Saturation 95% 03/17/2015 10:05 AM EDT Inhaled Oxygen Concentration - - Weight 152 kg (335 lb) 03/17/2015 10:05 AM EDT Height 194.3 cm (6' 4.5) 03/17/2015 10:05 AM EDT Body Mass Index 40.25 03/17/2015 10:05 AM EDT documented in this encounter Progress Notes Geovanna Mason, RD - 03/18/2015 2:36 PM EDT March 18, 2015 Leroy Torres [id number] TRANSPLANT NUTRITION Annual Post-Transplant Nutrition Evaluation Leroy Torres was seen by Nutrition Services on March 18, 2015 during his annual post-transplantcheck. Patient is doing fair 7 years post kidney transplant (txp date 02/29/2008). He has had no swelling; appetite too good; no issues with chewing or swallowing; no c/o of N/V/D/C. Patient's main issues stems from insufficient exercise level and higher fat intake. For breakfast her has 2 donuts; lunchhe has potato salad with egg or tuna salad; dinner may have 2 sausage patties and other sides. Activity level poor; Weight History: Estimated body mass index is 40.25 kg/(m^2) as calculated from the following: Height as of this encounter: 194.3 cm (6' 4.5). Weight as of this encounter: 151.955 kg (335 lb). On day of transplant 02/29/2008, patient weighed 278# and had BMI of 35 at a height of 74.5; On 10/29/2008 he weighed 250#; by 12/02/2008 his weight was 280# and by 08/30/2010 up to 300#. Patient got as high as 336# by 03/16/2013 and has since remained fairly stable at that weight. Lab Results Component Value Date HGB 13.4* 03/17/2015 HCT 40.4 03/17/2015 NA 135 03/17/2015 K 4.7 03/17/2015 BUN 30* 03/17/2015 CREATININE 1.70* 03/17/2015 GLUCOSE 287* 02/25/2014 CALCIUM 8.9 03/17/2015 MAGNESIUM 0.72 03/17/2015 PHOS 3.1 03/17/2015 ALBUMIN 3.5 03/17/2015 Cholesterol (in eD-H the component name CHLPL=Cholesterol) Lab Results Component Value Date CHLPL 122 03/17/2015 HDL 22 03/17/2015 TG 451 03/17/2015 LDL 62 03/17/2015 Assessment: Patient with obesity Class III; also elevated serum triglyceride level. Asked by Dr. Alejo Garnett to discuss low saturated fat and cholesterol diet. I did so and also provided patient with a meal plan to help him with weight loss; it was for 1500kcal and 75gms protein/day. I provided him with the booklet: Guidelines for a Heart Healthy Lifestyle. Patient appears to have a high fat intake, including milk, norton, sausage, donuts. Plan: 1500kcal meal plan as above. Booklet makes suggestions for low saturated fat and cholesterol foods. Encouraged increase activity level. Expect fair attempt at compliance judging from what patient states about certain foods I have suggested that he limit or avoid. I offered alternatives to some of his present choices. Patient has means for contact should questions arise. Alejo Garnett MD - 03/17/2015 10:35 AM EDT [facility] Transplant Nephrology Follow Up Date: 03/17/2015 Patient: Leroy Torres Transplant Date: 02/29/08 Organ(s) Kidney [place] organ diagnosis: Diabetes Mellitus - Type II From Transplant: 7 years Transplant ID: Mr. Leroy Torres is a White Not nor 59 y.o. male who is Status Post Kidney transplantation. Patient referred by Dr. Xiao. Mr. Leroy Torres presents to clinic forroutine follow-up of care, for Kidney transplantation. History of Present Illness: Mr. Torres is here today for a routine follow up at 7 years. He reports doing well. His activities have increased recently. Does a lot of outdoor activities including (rider) mowing about five acres ofland. Does use sunscreens. Overdue for colonoscopy AGAIN!!!! He had a prostate examination and PSA determination, and based upon his hgbA1C could certainly do better with his diabetic control. He denies any progression in his neuropathy, retinopathy, or vascular insufficiency. He underwent a hydrocelectomy last Fall. Routine Health Maintenance: ??? Tetanus andTetanus booster UTD Vaccine (every 10 Years) - Tdap ??? Colonoscopy Every 5 Years IS IN NEED OF THIS!!! ??? Influenza (Flu) Vaccine Yearly ( virus only) ??? Hepatitis C Screening (B. [id number]) ??? Pneumovax Q5 years (Prevnar 23); Pneumovax 13 once in a lifetime ??? Yearly ophthalmology exam ??? Biannual dental exam (with antibiotic prophylaxis) - does not need due to dentures ??? Dermatology evaluation yearly ??? Dexascan on periodic basis every 9-12 years (along with yearly 24 hour urine testing) Additionally: Gender approiate yearly physicals, and regular check-ups with PCP Males -- LITZY/PSA every Year DSE every 3 years post tx in diabetics [place] renal ultrasounds every 5 years to rule out RCC Patient Active Problem List Diagnosis Code ??? Amputee, below knee, L V49.75 ??? 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ifestations 250.40, 583.81 ??? Diabetes mellitus with neuropathy 250.60, 357.2 ??? Charcot's arthropathy, diabetic, R 250.60, 713.5 ??? Injury, other and unspecified, unspecified site 959.9 ??? Tremor, essential 333.1 ??? Sensorineural hearing loss, bilateral 389.18 ??? Delayed wound healing 879.9 ??? Amputee, below knee V49.75 ??? History of renal transplant V42.0 ??? Immunosuppression 279.9 ??? H/O kidney transplant V42.0 ?Appendicitis, sp appendectomy 06/16/13 541 ??? Intermittent fever of unknown origin 780.60 ??? Tremor/tics 781.0 ??? Hyperglycemia 790.29 ??? Hydrocele 603.9 ??? Lower urinary tract symptoms 788.99 PAST MEDICAL HX: ?? 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 Diabetes Mellitus ?? S/p bilateral BKA ?? Asthma, nasal polyps. ?? Essential tremor. ?? Hypertension. ?? GERD. ?? Chronic large Hydrocele. Past Surgical History Past Surgical History Procedure Date ??? Created by interface left BKA Procedure Date: Unknown ??? Created by interface AV FISTULA CREATION, DIRECT HEMODIALYSIS, ANY SITE, EG ROSA FISTULA / LEFT Procedure Date: 11/13/2004 ??? Created by interface CYSTO,STENT REMOVAL Procedure Date: 04/16/2008 ??? Created by interface Entered not Verified Procedure Date: 09/24/2010 ??? Created by interface KIDNEY TRANSPLANT - TRANSP / LEFT/RIGHT/CADAVERIC Procedure Date: 02/29/2008 ??? Created by interface PREPARATION CADAVERIC RENAL ALLOGRAFT Procedure Date: 02/29/2008 ??? Created by interface RECONSTRUCT CAD\LIVING DONOR RENAL VENOUS ANAS. Procedure Date: 02/29/2008 ??? Amputation low leg thru tib/fib 06/21/2011 ??AMPUTATION, BELOW-KNEE performed by HENNA GAMINO JR at [facility] MAIN OR ??? Lap, appendectomy 06/16/2013 LAPAROSCOPIC APPENDECTOMY performed by Angel Mccann MD at [facility] MAIN OR Family History No family history on file. SOCIAL HISTORY: History Substance Use Topics ??? Smoking status: Former Smoker -- 2.0 packs/day for 20 years Types: Cigarettes Quit date: 01/19/1993 ??? Smokeless tobacco: Never Used ??? Alcohol Use: Yes Comment: rare Allergies: Penicillins; Iftikhar inhibitors; Clindamycin hcl; and Allergenic extracts Immunizations: Immunization History Administered Date(s) Administered ??? Hepatitis B Vaccine, unspecified formulation 08/20/2004, 09/28/2004, 03/01/2005 ??? Influenza Vaccine, Whole 05/19/2005, 06/25/2008 ??? Pneumococcal Polyvalent 23 12/20/1996, 02/10/2007, 02/23/2012 ??? Td, adult 06/24/1990 Current Meds: Current outpatient prescriptions: triamcinolone (KENALOG) 0.1 % Cream, Apply topically to affected area 1 - 2 times daily as needed for itching., Disp: 80 g, Rfl: 2; PROGRAF 1 mg Capsule, Take 1 capsule by mouth 2 times daily. KIDNEY TRANSPLANT V42.0. TRANSPLANT DATE - 02/29/2008, Disp: 60 capsule, Rfl:11; CELLCEPT 250 mg Capsule, Take 2 capsules by mouth 2 times daily. Kidney Transplant V42.0. Transplant Date; 02-29-08, Disp: 120 capsule, Rfl: 11 insulin detemir (LEVEMIR FLEXTOUCH) Insulin Pen, Inject 60-70 Units subcutaneously 2 times daily. Takes 60 units in the morning, and 70 units at night. Dx Code: 250.61, Disp: 45 mL, Rfl: 11; gabapentin(NEURONTIN) 300 mg Capsule, 3 tabs in the AM and 3 tabs in the PM, Disp: 540 capsule, Rfl: 3; propranolol (INDERAL) 80 mg Tablet, Take 1 tablet by mouth 2 times daily., Disp: 360 tablet, Rfl: prn insulin aspart (NOVOLOG FLEXPEN) Insulin Pen, Inject 30-40 Units subcutaneously 4 times daily. Form faxed to [facility] for new Rx, Disp: 75 mL, Rfl: 11; Insulin [place], Disposable, (BD INSULIN PEN NEEDLEUF SHORT) 31 X 5/16 Needle, Form faxed for new Rx to [facility], Disp: 450 each, Rfl: 4; fluticasone (FLONASE) 50 mcg/actuation nasal spray, 2 sprays by Each Nare route as needed., Disp: 64 g, Rfl: 11 MULTIVITS-MINERALS/FA/LYCOPENE (ONE-A-DAY MEN'S MULTIVITAMIN ORAL), Take by mouth daily., Disp: , Rfl: ; glucagon, human recombinant, 1 mg/mL injection, Inject 1 mL into the muscle as needed., Disp: 1 each, Rfl: 3; aspirin 81 mg EC tablet, Take 81 mg by mouth daily., Disp: , Rfl: ; CHOLECALCIFEROL, VITAMIN D3, (VITAMIN D-3 ORAL), Take 2,000 Int'l Units by mouth daily., Disp: , Rfl: folic acid (FOLVITE) 1 mg tablet, Take 2 mg by mouth daily., Disp: , Rfl: ; montelukast (SINGULAIR) 10 mg tablet, Take 10 mg by mouth daily., Disp: , Rfl: ; omeprazole (PRILOSEC) 40 mg capsule, Take 40mg by mouth daily., Disp: , Rfl: ; atorvastatin (LIPITOR) 20 mg Tablet, Take 1 tablet by mouth daily., Disp: 30 tablet, Rfl: 11 Review of Systems: Negative. 10 systems reviewed with patient Physical Exam: Constitutional: obese HENT: ENT exam normal, no neck nodes or sinus tenderness Head: Normocephalic, without obvious abnormality, atraumatic Eyes: conjunctivae and sclerae normal Neck: normal, supple and no adenopathy Cardiovascular: CVS exam BP noted to be well controlled today in office, S1, S2 normal, no gallop, no murmur, chest clear, no JVD, no HSM Pulmonary/Chest: Normal. Abdominal: soft, non-tender, without masses or organomegaly and protuberant Musculoskeletal: negative Neurological: intact Skin: no rashes Recent Results (from the past 24 hour(s)) CMP w/fasting Glucose Result Value Ref Range Glucose Fasting 298 (H) 65 - 99 mg/dL BUN 30 (H) 10 - 20 mg/dL Creatinine 1.70 (H) 0.80 - 1.50 mg/dL Sodium 135 135 - 145 mmol/L Potassium 4.7 3.5 - 5.0 mmol/L Chloride 101 98 - 107 mmol/L CO2 24 22 - 31 mmol/L Anion Gap 10 5 - 15 mmol/L Calcium 8.9 8.5 - 10.5 mg/dL Total Protein 7.9 6.1 - 8.0 gm/dL Albumin 3.5 3.2 - 5.2 gm/dL AST 15 0 - 39 unit/L ALT 19 0 - 55 unit/L Alk Phos 127 (H) 40 - 120 unit/L Total Bilirubin 0.5 0.2 - 1.3 mg/dL Bili, Direct 0.2 0.0 - 0.3 mg/dL Estimated GFR 41 (L) >=60 Reticulocyte Count Result Value Ref Range Retic Ct % 3.2 (H) 0.5 - 2.4 % Retic Ct Abs 0.130 (H) 0.027 - 0.095 x10(6)/mcL Immature Retic% 25.7 (H) 2.3 - 15.9 % Reticulated Hgb 35.5 28.5 - 38.9 pg Plat Immature % 1.0 0.0 - 7.4 % Lipid panel (fasting) Result Value Ref Range Chol, Total 122 <=199 mg/dL Triglycerides 451 (H) <=149 mg/dL HDL 22 (L) >=40 mg/dL LDL Cholesterol Not Calculated <=99 mg/dL Chol/HDL Ratio 5.5 ratio Magnesium Result Value Ref Range Magnesium 0.72 0.69 - 1.07 mmol/L Phosphorus Result Value Ref Range Phosphorus 3.1 2.5 - 4.5 mg/dL Uric acid Result Value Ref Range Uric Acid 9.8 (H) 3.5 - 8.5 mg/dL PTH Result Value Ref Range PTH 115 (H) 15 - 65 pg/mL Hemoglobin A1c Result Value Ref Range Hemoglobin A1C 9.7 (H) 4.3 - 5.6 % Est Avg Gluc 232 mg/dL Hemogram Result Value Ref Range WBC 6.5 4.0 - 10.0 x10(3)/mcL RBC 4.18 (L) 4.63 - 6.08 x10(6)/mcL Hemoglobin 13.4 (L) 13.7 - 17.5 gm/dL Hematocrit 40.4 40.0 - 51.0 % MCV 96.7 (H) 79.0 - 92.0 fL MCH 32.1 25.6 - 32.2 pg MCHC 33.2 32.0 - 36.5 gm/dL Platelets 189 145 - 370 x10(3)/mcL RDWSD 49.6 (H) 35.0 - 46.0 fL RDWCV 14.1 10.9 - 14.4 % MPV 9.0 9.0 - 12.0 fL Differential, Automated Result Value Ref Range Neutrophils % 56.1 % Neutr Abs (ANC) 3.66 1.50 - 6.30 x10(3)/mcL Lymphocytes % 31.9 % Lymphocytes Abs 2.1 1.0 - 3.6 x10(3)/mcL Monocytes % 7.4 % Monocyte Abs 0.5 0.2 - 1.0 x10(3)/mcL Eosinophils % 3.8 % Eosinophils Abs 0.2 0.0 - 0.5 x10(3)/mcL Basophils % 0.6 % Basophils Abs 0.0 0.0 - 0.2 x10(3)/mcL Immature Gran % 0.20 % Courtney Gran Abs 0.01 0.00 - 0.05 x10(3)/mcL LDL Cholesterol, Direct Result Value Ref Range LDL Chol Direct 62 <=99 mg/dL Urinalysis with microscopic Result Value Ref Range Glucose UA 150 (A) Negative mg/dL Protein UA 30 (A) Negative mg/dL Bilirubin UA Negative Negative mg/dL Urobilinogen UA Normal Normal mg/dL pH UA 6.0 5.0 - 8.0 Blood UA Negative Negative mg/dL Ketones UA Negative Negative mg/dL Nitrite UA Negative Negative Leukocytes UA Negative Negative mcL Appearance UA Clear Clear Spec [place] UA 1.013 1.002 - 1.030 Color UA Yellow Yellow RBC UA 1 0 - 3 /HPF WBC UA 1 0 - 3 /HPF Assessment, Plan and Recommendations: Leroy Torres is Status Post Kidney transplantation. Mr. Leroy Torres is maintaining excellent graft function. Patient remains well hydrated. Patient is encouraged to continue with 3 +liters of fluid intake per day. I also encouraged patient to keep up with all recommended health maintenance visits, routine lab testing and screenings. His issues are: 1)poor diabetic control; I suggested he speak with Dr. Hernandez directly 2)grossly abnl fasting lipid profile; I changed his simvastatin (weak statin to raise HDL) to atorvastatin 20 mg qhs; he was advised by our information services vice president about low saturated fat diet and I asked that he exercise daily for 20-30 min daily 3)HCM needs A) colonoscopy B) dobutamine stress echo every 3 years post tx in diabetics C)[place] renal U/S looking for RCC Immunosuppression: Prograf: 1mg twice daily. Cellcept: 500mg twice daily. Prograf level pending today Hypertension Management: good Hyperlipidemia Management: good Calcium and phosphorous Management: good Magnesium Management: fair Patient's Functional Status is: 80% Normal activity with effort: some symptoms of disease All age appropriate and post-transplant, routine health maintenance tests and screenings are strongly recommended; (noting that the time intervals are different than that of the non-transplant community). RTC: One year. Pharmacy needs addressed. No additional concerns today. documented in this encounter Plan of Treatment Upcoming Encounters Date Type Specialty Care Team Description 05/26/2022 Office Visit Otolaryngology Ricardo Panda PA [facility] [place] [phone] (Oscar escobedo) 06/02/2022 Infusion Hematology and Oncology 06/16/2022 Infusion Hematology and Oncology 06/21/2022 Office Visit Neurology Tyler Rojas MD [facility] [place] 0375 6-2022 (Wo rk) 06/30/2022 Infusion Hematology and Oncology 07/14/2022 Infusion Hematology and Oncology 07/28/2022 Infusion Hematology and Oncology 08/11/2022 Infusion Hematology and Oncology 11/04/2022 Office Visit Rheumatology Dante Freedman PA [facility] [place], [place] [address] (Wo rk) documented as of this encounter Procedures Procedure Name Priority Date/Time Associated Diagnosis Comme nts CALCIUM CREATININE STAT 03/17/2015 9:14 Transplanted kidney Results for this RATIO, RANDOM URINE AM EDT Need for prophylactic procedure are in immunotherapy the results section. PROTEIN/CREATININE STAT 03/17/2015 9:14 Transplanted kidney Results for this RATIO, URINE AM EDT Need for prophylactic proced ure are in immunotherapy the results section. PHOSPHORUS, URINE, STAT 03/17/2015 9:14 Transplanted kidney Results for this RANDOM AM EDT Need for prophylactic proced ure are in immunotherapy the results section. CREATININE, URINE, STAT 03/17/2015 9:14 Transplanted kidney Results for this RANDOM AM EDT Need for prophylactic proced ure are in immunotherapy the results section. URINALYSIS WITH STAT 03/17/2015 9:14 Transplanted kid [place] Results for this REFLEX CULTURE AM EDT Need for prophylactic proc edure are in immunotherapy the results section. BK QUANT BLOOD RESULT STAT 03/17/2015 9:00 Transplant ed kidney Results for this AM EDT Need for prophylactic proced ure are in immunotherapy the results section. PTH STAT 03/17/2015 9:00 Transplanted kid [place] Results for this AM EDT Need for prophylactic proced ure are in immunotherapy the results section. CMP W/FASTING GLUCOSE STAT 03/17/2015 9:00 Transplant ed kidney Results for this AM EDT Need for prophylactic proced ure are in immunotherapy the results section. BKV QUANT BLOOD STAT 03/17/2015 9:00 Transplanted kid [place] AM EDT Need for prophylactic immunotherapy HEMOGRAM STAT 03/17/2015 9:00 Transplanted kid [place] Results for this AM EDT Need for prophylactic proced ure are in immunotherapy the results section. DIFFERENTIAL, STAT 03/17/2015 9:00 Transplanted kid [place] Results for this AUTOMATED AM EDT Need for prophylactic proced ure are in immunotherapy the results section. TACROLIMUS LEVEL STAT 03/17/2015 9:00 Transplanted ki dney Results for this AM EDT Need for prophylactic proced ure are in immunotherapy the results section. 1,25-DIHYDROXYCHOLECA STAT 03/17/2015 9:00 Transplant ed kidney Results for this LCIFEROL AM EDT Need for prophylactic proced ure are in immunotherapy the results section. VITAMIN D, 25-HYDROXY STAT 03/17/2015 9:00 Transplant ed kidney Results for this AM EDT Need for prophylactic proced ure are in immunotherapy the results section. RETICULOCYTE COUNT STAT 03/17/2015 9:00 Transplanted kidney Results for this AM EDT Need for prophylactic proced ure are in immunotherapy the results section. CBC (WITH DIFF) STAT 03/17/2015 9:00 Transplanted kid [place] AM EDT Need for prophylactic immunotherapy URIC ACID STAT 03/17/2015 9:00 Transplanted kid [place] Results for this AM EDT Need for prophylactic proced ure are in immunotherapy the results section. PHOSPHORUS STAT 03/17/2015 9:00 Transplanted kid [place] Results for this AM EDT Need for prophylactic proced ure are in immunotherapy the results section. MAGNESIUM STAT 03/17/2015 9:00 Transplanted kid [place] Results for this AM EDT Need for prophylactic proced ure are in immunotherapy the results section. LDL CHOLESTEROL, STAT 03/17/2015 9:00 Results for this DIRECT AM EDT procedure are i n the results section. HEMOGLOBIN A1C STAT 03/17/2015 9:00 Transplanted kid [place] Results for this AM EDT Need for prophylactic proced ure are in immunotherapy the results section. LIPID PANEL (REFLEX STAT 03/17/2015 9:00 Transplanted kidney Results for this DIRECT LDL) AM EDT Need for prophylactic proced ure are in immunotherapy the results section. U24 HRS AND VOLUME Routine 03/17/2015 4:00 Result s for this AM EDT procedure are i n the results section. URIC ACID, URINE, 24 Routine 03/17/2015 4:00 Transplante d kidney Results for this HOUR AM EDT Need for prophylactic proced ure are in immunotherapy the results section. CALCIUM, URINE, 24 Routine 03/17/2015 4:00 Transplanted kidney Results for this HOUR AM EDT Need for prophylactic proced ure are in immunotherapy the results section. CREATININE, URINE, 24 Routine 03/17/2015 4:00 Transplant ed kidney Results for this HOUR AM EDT Need for prophylactic proced ure are in immunotherapy the results section. PROTEIN, URINE, 24 Routine 03/17/2015 4:00 Transplanted kidney Results for this HOUR AM EDT Need for prophylactic proced ure are in immunotherapy the results section. PHOSPHORUS, URINE, 24 Routine 03/17/2015 4:00 Transplant ed kidney Results for this HOUR AM EDT Need for prophylactic proced ure are in immunotherapy the results section. CREATININE CLEARANCE, Routine 03/17/2015 4:00 Transplant ed kidney Results for this URINE, 24 HOUR AM EDT Need for prophylactic proc edure are in immunotherapy the results section. documented in this encounter Results (ABNORMAL) Protein/Creatinine Ratio, urine (03/17/2015 9:14 AM EDT) P athologist Signature U Creatinine 71 mg/dL CERNER MILLENNIUM U Protein Ran 21 (H) 0 - 12 CERNER mg/dL MILLENNIUM Prot/Cre Ratio 0.3 ratio CERNER MILLENNIUM Specimen Anatomical Collection Method Collection Time Receive d Time (Source) Location / / Volume Laterality Urine specimen 03/17/2015 9:14 AM 015 9:25 (specimen) EDT AM EDT Resulting Agency Comment Spec In Lab Alejo Garnett MD URINE ORDERABLES Performing Organization Address City/[facility]/ZIP [place] [address] CERNER MILLENNIUM Phosphorus, urine, random (03/17/2015 9:14 AM EDT) P athologist Signature U Phosphorus 46.1 mg/dL CERNER MILLENNIUM Specimen Anatomical Collection Method Collection Time Receive d Time (Source) Location / / Volume Laterality Urine specimen 03/17/2015 9:14 AM 015 9:25 (specimen) EDT AM EDT Resulting Agency Comment Spec In Lab Alejo Garnett MD URINE ORDERABLES Performing Organization Address City/[facility]/ZIP [facility] Phon e Number [address] CERNER MILLENNIUM Calcium Creatinine Ratio, random urine (03/17/2015 9:14 AM EDT) P athologist Signature U Calcium 0.9 mg/dL CERNER MILLENNIUM U Creatinine 71 mg/dL CERNER MILLENNIUM Ca/Cre Ratio 0.01 ratio CERNER MILLENNIUM Specimen Anatomical Collection Method Collection Time Receive d Time (Source) Location / / Volume Laterality Urine specimen 03/17/2015 9:14 AM 015 9:25 (specimen) EDT AM EDT Resulting Agency Comment Spec In Lab Alejo Garnett MD URINE ORDERABLES Performing Organization Address City/State/[place] [address] CERNER MILLENNIUM Creatinine, urine, random (03/17/2015 9:14 AM EDT) P athologist Signature U Creatinine 71 mg/dL CERNER MILLENNIUM Specimen Anatomical Collection Method Collection Time Receive d Time (Source) Location / / Volume Laterality Urine specimen 03/17/2015 9:14 AM 015 9:25 (specimen) EDT AM EDT Resulting Agency Comment Spec In Lab Alejo Garnett MD URINE ORDERABLES Performing Organization Address City/[facility]/[place]IP [place] [address] CERNER MILLENNIUM (ABNORMAL) Urinalysis with microscopic (03/17/2015 9:14 AM EDT) Patholo gist Method Time Signature Glucose UA 150 (A) Negative CERNER mg/dL MILLENNIUM Protein UA 30 (A) Negative CERNER mg/dL MILLENNIUM Bilirubin UA Negative Negative CERNER mg/dL MILLENNIUM Comment: Clinical correlation required for positi ve Urine Bilirubin results as false positive may occur with some drugs and d rug related products. If a false positive is suspected a serum total bili reyna should be considered if clinically indicated. Urobilinogen UA Normal Normal mg/dL CERNER MILL ENNIUM pH UA 6.0 5.0 - 8.0 CERNER MILLENNIUM Blood UA Negative Negative mg/dL CERNER MILLENNI UM Ketones UA Negative Negative mg/dL CERNER MILLENN IUM Nitrite UA Negative Negative CERNER MILLENNIUM Leukocytes UA Negative Negative mcL CERNER OMKAR NIUM Appearance UA Clear Clear CERNER MILLENNIU M Spec [place] UA 1.013 1.002 - 1.030 CERNER MIL LENNIUM Color UA Yellow Yellow CERNER MILLENNIUM RBC UA 1 0 - 3 /HPF CERNER MILLENNIUM WBC UA 1 0 - 3 /HPF CERNER MILLENNIUM Specimen Anatomical Collection Method Collection Time Receive d Time (Source) Location / / Volume Laterality Urine specimen 03/17/2015 9:14 AM 015 9:25 (specimen) EDT AM EDT Resulting Agency Comment Spec In Lab Alejo Garnett MD URINE ORDERABLES Performing Organization Address City/State/ZIP Code Phon e Number [place] [phone] [facility] B[facility] Quant Blood Result (03/17/2015 9:00 AM EDT) Component Value Ref Test Analysis Performed At [facility] Range Method Time Signature BKV Blood Not Detected CERBANNER CASA GRANDE [facility] BKV Blood BK Virus Blood Result Interpretation [facility] Result: BK Virus not detected log concentration (copies/mL): ??Not detected Assay Range: ??plasma: 3.04-9.04 log copper etcher ies/mL (1.1x10^3 - 1.1x10^9 copies/mL) Results are reported as log copies/mL. ??Changes of less than 1.0 log between serial samples may not be clinically significant. Methods: Quantitative real-time polymerase chain react ion (PCR) of viral DNA isolated from plasma was performed using [employer] BKV (ASR) re agents and the Applied Ti Knight 7500 FAST Real-Time PCR System. In additi on, the ??PCR product sequence is confirmed using physical properties (fredo ting curve analysis). This test was developed and its performance determined by the [facility] [place] [facility]. It has not been cl eared or approved by the U.S. Food and Drug Administration. This test is used f or clinical purposes and should not be considered investigational or for research purposes. T Molecular Pathology Laboratory is certified by the Clinical Laboratory Improvement Act of 1988 and as such is allowed to perform high complexity clinical testi ng. Comment: [VERIFIED DATE]03.20.15 Verified By:Alejandra Lane (Electronic Signature) Specimen Anatomical Collection Method Collection Time Receive d Time (Source) Location / / Volume Laterality Blood specimen 03/17/2015 9:00 AM 015 (specimen) EDT 11:46 AM EDT Resulting Agency Comment Spec In Lab Alejo Garnett MD HEMATOLOGY ORDERABLES Performing Organization Address City/State/ZIP Code Phon e Number [place] [phone] CERNER MILLENNIUM LDL Cholesterol, Direct (03/17/2015 9:00 AM EDT) athologist Signature LDL Chol 62 <=99 mg/dL CERNER Direct MILLENNIUM Comment: The National Cholesterol Education Progr am (NCEP) has set the following guidelines for LDL Cholesterol: Reference range: ?? Optimal: ?<100 mg/dL ?? Near Optimal/Above Optimal: ?? 100-1 29 mg/dL ?? Borderline high: ?130-159 mg/dL ?? High: ? 160-189 mg/dL ?? Very high: ?>on=514 mg/dL SERENA 2001: 285(19):6587-2704 Specimen Anatomical Collection Method Collection Time Receive d Time (Source) Location / / Volume Laterality Blood specimen 03/17/2015 9:00 AM 015 9:08 (specimen) EDT AM EDT Resulting Agency Comment Spec In Lab Alejo Garnett MD CHEMISTRY ORDERABLES Performing Organization Address City/State/ZIP Code Phon e Number [address] CERNER MILLENNIUM Differential, Automated (03/17/2015 9:00 AM EDT) athologist Signature Neutrophils % 56.1 % CERNER MILLENNIUM Neutr Abs (ANC) 3.66 1.50 - CERNER 6.30 MILLENNIUM x10(3)/mcL Lymphocytes % 31.9 % CERNER MILLENNIUM Lymphocytes Abs 2.1 1.0 - 3.6 CERNER x10(3)/mcL MILLENNIUM Monocytes % 7.4 % CERNER MILLENNIUM Monocyte Abs 0.5 0.2 - 1.0 CERNER x10(3)/mcL MILLENNIUM Eosinophils % 3.8 % CERNER MILLENNIUM Eosinophils Abs 0.2 0.0 - 0.5 CERNER x10(3)/mcL MILLENNIUM Basophils % 0.6 % CERNER MILLENNIUM Basophils Abs 0.0 0.0 - 0.2 CERNER x10(3)/mcL MILLENNIUM Immature Gran % 0.20 % CERNER MILLENNIUM Comment: Immature granulocytes(IG's)percentage an d absolute count will include metamyelocytes, myelocytes, and promyelo cytes. Blood smears from CBCs yielding IG's will be scanned manually for concor dance. If this scan disagrees with the automated IG or if promyelocytes are not ed, a manual differential will be performed. Courtney Gran Abs 0.01 0.00 - 0.05 x10(3)/mcL CER NER MILLENNIUM Specimen Anatomical Collection Method Collection Time Receive d Time (Source) Location / / Volume Laterality Blood specimen 03/17/2015 9:00 AM 015 9:05 (specimen) EDT AM EDT Resulting Agency Comment Spec In Lab Alejo Garnett MD HEMATOLOGY ORDERABLES Performing Organization Address City/State/[place] [address] CERNER MILLENNIUM (ABNORMAL) Hemogram (03/17/2015 9:00 AM EDT) P athologist Signature WBC 6.5 4.0 - 10.0 CERNER x10(3)/mcL MILLENNIUM RBC 4.18 (L) 4.63 - CERNER 6.08 MILLENNIUM x10(6)/mcL Hemoglobin 13.4 (L) 13.7 - CERNER 17.5 gm/dL MILLENNIUM Hematocrit 40.4 40.0 - CERNER 51.0 % MILLENNIUM MCV 96.7 (H) 79.0 - CERNER 92.0 fL MILLENNIUM MCH 32.1 25.6 - CERNER 32.2 pg MILLENNIUM MCHC 33.2 32.0 - CERNER 36.5 gm/dL MILLENNIUM Platelets 189 145 - 370 CERNER x10(3)/mcL MILLENNIUM RDWSD 49.6 (H) 35.0 - CERNER 46.0 fL MILLENNIUM RDWCV 14.1 10.9 - CERNER 14.4 % MILLENNIUM MPV 9.0 9.0 - 12.0 [facility] fL [facility] Specimen Anatomical Collection Method Collection Time Receive d Time (Source) Location / / Volume Laterality Blood specimen 03/17/2015 9:00 AM 015 9:05 (specimen) EDT AM EDT Resulting Agency Comment Spec In Lab Alejo Garnett MD HEMATOLOGY ORDERABLES Performing Organization Address City/State/[place] [address] [facility] ([facility]NORMAL) Hemoglobin A1c (03/17/2015 9:00 AM EDT) Analysis Performed At Patho logist Time Signature Hemoglobin A1C 9.7 (H) 4.3 - 5.6 [facility] Comment: Reference Range: 4.3 - 5.6% 5.7 [...] Mellitus, Diabetes Care 2013; 36: Suppl. 1, P57-63 Est Avg Gluc 232 mg/dL [facility] Comment: eAG equivalents for HbA1c percentages: HbA1c(%) ?eAG(mg/dL) 6.0 ?126 6.5 ?140 7.0 ?154 7.5 ?169 8.0 ?183 8.5 ?197 9.0 ?212 9.5 ?226 10.0 ? 240 Limitations: The eAG calculation has not been validated on women, individuals below 18 years old and above 70 years old, and individuals with hemoglobinopathies. Additional resources are available on ADA website: http://Fast Asset/DHMCadacalc Scooby MALDONADO, Nba J, Sydnee R, et al. ??Tr anslating the A1C assay into estimated average glucose values. ??Diabetes Care 2008:31(8):7873-1158. Specimen Anatomical Collection Method Collection Time Receive d Time (Source) Location / / Volume Laterality Blood specimen 03/17/2015 9:00 AM 015 9:05 (specimen) EDT AM EDT Resulting Agency Comment Spec In Lab Alejo Garnett MD CHEMISTRY ORDERABLES Performing Organization Address City/[facility]/ZIP Code Phon e Number [place] [phone] CERNER MILLENNIUM (ABNORMAL) VIT D Total Evaluation (03/17/2015 9:00 AM EDT) P athologist Signature 25-OH Vit D 29 (L) 30 - 100 CERNER Total ng/mL MILLENNIUM Comment: Deficient <10 ng/mL Insufficient 10 to 29 ng/mL Sufficient 30 to 100 ng/mL Potential Intoxication >100 ng/mL According to the [place] National Osteoporosi s Foundation, Vitamin D concentrations >30 ng/mL are sufficient to protect bone health. ??The National Kidney Foundation has similarly stated that pat ients with Vitamin D concentrations <30ng/mL should be considered to be insu fficient or deficient. http://Fast Asset/DHMCnatlkidneyfoundat ion http://Fast Asset/DHMCVitD The IDS iSYS Vitamin D Immunoassay detec ts both 25-OH Vitamin D2 and 25-OH Vitamin D3, but only a total Vitamin D c oncentration is reported. Specimen Anatomical Collection Method Collection Time Receive d Time (Source) Location / / Volume Laterality Blood specimen 03/17/2015 9:00 AM 015 9:05 (specimen) EDT AM EDT Resulting Agency Comment Spec In Lab Alejo Garnett MD CHEMISTRY ORDERABLES Performing Organization Address City/State/ZIP Code Phon e Number [address] CERNER MILLENNIUM 1,25-dihydroxycholecalciferol (03/17/2015 9:00 AM EDT) P athologist Signature Vit D 1,25 25 18 - 64 CERNER pg/mL MILLENNIUM Comment: Test Performed by: [place] [address] Coil Tier: Van White II, M.D., Ph.D. Specimen Anatomical Collection Method Collection Time Receive d Time (Source) Location / / Volume Laterality Blood specimen 03/17/2015 9:00 AM 015 (specimen) EDT 11:35 AM EDT Resulting Agency Comment Spec In Lab Alejo Garnett MD CHEMISTRY ORDERABLES Performing Organization Address City/[facility]/ZIP Code Phon e Number [address] CERNER MILLENNIUM (ABNORMAL) PTH (03/17/2015 9:00 AM EDT) athologist Signature PTH 115 (H) 15 - 65 CERNER pg/mL MILLENNIUM Specimen Anatomical Collection Method Collection Time Receive d Time (Source) Location / / Volume Laterality Blood specimen 03/17/2015 9:00 AM 015 9:05 (specimen) EDT AM EDT Resulting Agency Comment Spec In Lab Alejo Garnett MD CHEMISTRY ORDERABLES Performing Organization Address City/[facility]/[place]IP [place] [address] CERNER MILLENNIUM Tacrolimus level (03/17/2015 9:00 AM EDT) athologist Signature Tacrolimus Lvl 6.4 ng/mL CERNER MILLENNIUM Comment: Trough therapeutic: 5-15 ng/mL Specimen Anatomical Collection Method Collection Time Receive d Time (Source) Location / / Volume Laterality Blood specimen 03/17/2015 9:00 AM 015 (specimen) EDT 12:07 PM EDT Resulting Agency Comment Spec In Lab Alejo Garnett MD CHEMISTRY ORDERABLES Performing Organization Address City/State/[place] [address] CERNER MILLENNIUM (ABNORMAL) Uric acid (03/17/2015 9:00 AM EDT) P athologist Signature Uric Acid 9.8 (H) 3.5 - 8.5 CERNER mg/dL MILLENNIUM Specimen Anatomical Collection Method Collection Time Receive d Time (Source) Location / / Volume Laterality Blood specimen 03/17/2015 9:00 AM 015 9:05 (specimen) EDT AM EDT Resulting Agency Comment Spec In Lab Alejo Garnett MD CHEMISTRY ORDERABLES Performing Organization Address City/[facility]/ZIP Code Phon e Number [address] CERNER MILLENNIUM Phosphorus (03/17/2015 9:00 AM EDT) P athologist Signature Phosphorus 3.1 2.5 - 4.5 CERNER mg/dL MILLENNIUM Specimen Anatomical Collection Method Collection Time Receive d Time (Source) Location / / Volume Laterality Blood specimen 03/17/2015 9:00 AM 015 9:05 (specimen) EDT AM EDT Resulting Agency Comment Spec In Lab Alejo Garnett MD CHEMISTRY ORDERABLES Performing Organization Address City/[facility]/ZIP Code Phon e Number [address] CERNER MILLENNIUM Magnesium (03/17/2015 9:00 AM EDT) P athologist Signature Magnesium 0.72 0.69 - 1.07 CERNER mmol/L MILLENNIUM Specimen Anatomical Collection Method Collection Time Receive d Time (Source) Location / / Volume Laterality Blood specimen 03/17/2015 9:00 AM 015 9:05 (specimen) EDT AM EDT Resulting Agency Comment Spec In Lab Alejo Garnett MD CHEMISTRY ORDERABLES Performing Organization Address City/State/[place] [address] CERNER MILLENNIUM (ABNORMAL) Lipid panel (fasting) (03/17/2015 9:00 AM EDT) athologist Signature Chol, Total 122 <=199 mg/dL HOLLI [facility] Comment: Recommendations of the NCEP Adult Treatm ent Panel for the following risk cutoff thresholds for the [place] populatio n: Desirable: <200 mg/dL Borderline High: 200-239 mg/dL High: > or = 240 mg/dL Triglycerides 451 (H) <=149 mg/dL HOLLI COLEENN IUM Comment: Reference Range: Normal triglycerides: ??<150 mg/dL Borderline high: ??150-199 mg/dL High: ??200-499 mg/dL Very high: ??>ma=154 mg/dL SERENA 2001; 285(19):9845-9338 HDL 22 (L) >=40 mg/dL [facility] Comment: Reference range: ??Low HDL: ?? < 40 mg/dL ??Normal: ?40-60 mg/dL ??Desirable: > 60 mg/dL SERENA 2001; 285(19):4851-0007 LDL Cholesterol Not Calculated <=99 mg/dL HOLLI Ramirez ILLENNIUM Comment: Since a calculated LDL value is not nery d for triglycerides greater than 400 mg/dl, a direct LDL determination is per formed instead. Reference range: ?? Optimal: ?<100 mg/dL ?? Near Optimal/Above Optimal: ?? 100-1 29 mg/dL ?? Borderline high: ?130-159 mg/dL ?? High: ? 160-189 mg/dL ?? Very high: ?>ln=187 mg/dL SERENA 2001: 285(19):1211-9949 Chol/HDL Ratio 5.5 ratio HOLLI BALLARDI UM Comment: A Cholesterol to HDL ratio below 4:1 is desirable. ??Studies suggest that increased CAD risk occurs at ratios abov e 5 for females and above 6 for men. ? [place] [employer] Association ??(htt p://www.americanheart.org) ? Edna Int Med, 1994; 121:641 ? AM J Med, 1998; 105(1A):48S Specimen Anatomical Collection Method Collection Time Receive d Time (Source) Location / / Volume Laterality Blood specimen 03/17/2015 9:00 AM 015 9:05 (specimen) EDT AM EDT Resulting Agency Comment Spec In Lab Alejo Garnett MD CHEMISTRY ORDERABLES Performing Organization Address City/[facility] [place] [address] CERNER MILLENNIUM (ABNORMAL) Reticulocyte Count (03/17/2015 9:00 AM EDT) Patholo gist Method Time Signature Retic Ct % 3.2 (H) 0.5 - 2.4 CERNER % MILLENNIUM Retic Ct Abs 0.130 (H) 0.027 - CERNER 0.095 MILLENNIUM x10(6)/mc L Immature Retic% 25.7 (H) 2.3 - CERNER 15.9 % MILLENNIUM Reticulated Hgb 35.5 28.5 - CERNER 38.9 pg MILLENNIUM Plat Immature % 1.0 0.0 - 7.4 CERNER % MILLENNIUM Specimen Anatomical Collection Method Collection Time Receive d Time (Source) Location / / Volume Laterality Blood specimen 03/17/2015 9:00 AM 015 9:05 (specimen) EDT AM EDT Resulting Agency Comment Spec In Lab Alejo Garnett MD HEMATOLOGY ORDERABLES Performing Organization Address City/[facility] [place] [address] CERNER MILLENNIUM (ABNORMAL) CMP w/fasting Glucose (03/17/2015 9:00 AM EDT) P athologist Signature Glucose 298 (H) 65 - 99 CERNER Fasting mg/dL MILLENNIUM Comment: ?Fasting* Glucose Interpretive C riteria Normal [...] of Diabetes Mellitus, Position Statement from the [place] [employer]. ??Diabete s Care, Volume 33, Supplement 1, Jul 2009 BUN 30 (H) 10 - 20 mg/dL CERNER MILLENNIU M Creatinine 1.70 (H) 0.80 - 1.50 mg/dL CERNER MILL ENNIUM Comment: Please note that the pediatric reference intervals supplied above were not validated at [facility] Results from pediatri c patients should be interpreted in conjunction to the patient's age, height and muscle mass. Sodium 135 135 - 145 mmol/L CERNER OMKAR NIUM Potassium 4.7 3.5 - 5.0 mmol/L CERNER OMKAR NIUM Comment: Please note: ??Patients with WBC >100,00 0 may have falsely elevated Potassium levels. ??For accurate Potassium quantif ication in these patients send serum separator tube (gold top) for subsequent determinations. ??Contact the Clinical Chemistry Laboratory if there are any qu estions. Chloride 101 98 - 107 mmol/L CERNER MILLENN IUM CO2 24 22 - 31 mmol/L CERNER MILLENNI UM Anion Gap 10 5 - 15 mmol/L CERNER MILLENNIU M Calcium 8.9 8.5 - 10.5 mg/dL CERNER OMKAR NIUM Total Protein 7.9 6.1 - 8.0 gm/dL CERNER MIL LENNIUM Albumin 3.5 3.2 - 5.2 gm/dL CERNER MILLENN IUM AST 15 0 - 39 unit/L CERNER MILLENNIU M ALT 19 0 - 55 unit/L CERNER MILLENNIU M Alk Phos 127 (H) 40 - 120 unit/L CERNER MILLENN IUM Total Bilirubin 0.5 0.2 - 1.3 mg/dL CERNER M ILLENNIUM Bili, Direct 0.2 0.0 - 0.3 mg/dL CERNER MILL ENNIUM Estimated GFR 41 (L) >=60 CERNER MILLENNIU M Comment: This estimated GFR (eGFR) value was [...] the following links into your internet browser. http://Fast Asset/DHnkdep http://Fast Asset/DHMCnkf Specimen Anatomical Collection Method Collection Time Receive d Time (Source) Location / / Volume Laterality Blood specimen 03/17/2015 9:00 AM 015 9:05 (specimen) EDT AM EDT Resulting Agency Comment Spec In Lab Alejo Garnett MD CHEMISTRY ORDERABLES Performing Organization Address City/[facility]/ZIP [place] [address] CERNER MILLENNIUM U24 Hrs and Volume (03/17/2015 4:00 AM EDT) P athologist Signature Hours 22 hour(s) CERNER Collected MILLENNIUM Urine TV (ml) 3,350 mL CERNER MILLENNIUM Specimen Anatomical Collection Method Collection Time Receive d Time (Source) Location / / Volume Laterality Urine specimen 03/17/2015 4:00 AM 015 9:31 (specimen) EDT AM EDT Resulting Agency Comment Spec In Lab Alejo Garnett MD CHEMISTRY ORDERABLES Performing Organization Address City/[facility]/ZIP Code Phon e Number [address] CERNER MILLENNIUM Uric acid, urine, 24 hour (03/17/2015 4:00 AM EDT) P athologist Signature U24 Uric Conc 19.9 mg/dL CERNER MILLENNIUM U24 Uric Calc 0.67 0.25 - CERNER 0.80 MILLENNIUM gm/24hr Specimen Anatomical Collection Method Collection Time Receive d Time (Source) Location / / Volume Laterality Urine specimen 03/17/2015 4:00 AM 015 9:31 (specimen) EDT AM EDT Resulting Agency Comment Spec In Lab Alejo Garnett MD URINE ORDERABLES Performing Organization Address City/[facility]/ZIP Code Phon e Number [address] CERNER MILLENNIUM Phosphorus, urine, 24 hour (03/17/2015 4:00 AM EDT) P athologist Signature U24 Phos Conc 35.2 mg/dL CERNER MILLENNIUM U24 Phos Calc 1.2 0.4 - 1.3 CERNER gm/24hr MILLENNIUM Specimen Anatomical Collection Method Collection Time Receive d Time (Source) Location / / Volume Laterality Urine specimen 03/17/2015 4:00 AM 015 9:31 (specimen) EDT AM EDT Resulting Agency Comment Spec In Lab Alejo Garnett MD URINE ORDERABLES Performing Organization Address [facility] [place] [address] CERNER MILLENNIUM (ABNORMAL) Calcium, urine, 24 hour (03/17/2015 4:00 AM EDT) P athologist Signature U24 Ca Conc <0.8 mg/dL CERNER MILLENNIUM Comment: result rechecked-NM U24 Ca Calc <26.8 (L) 50.0 - 300.0 mg/24hr CERNER MILLENNIUM Comment: Reference Range: 50.0-300.0 mg/ 24 hour based on diet. Specimen Anatomical Collection Method Collection Time Receive d Time (Source) Location / / Volume Laterality Urine specimen 03/17/2015 4:00 AM 015 9:31 (specimen) EDT AM EDT Resulting Agency Comment Spec In Lab Alejo Garnett MD URINE ORDERABLES Performing Organization Address City/[facility]/ZIP Code Phon e Number [address] CERNER MILLENNIUM (ABNORMAL) Creatinine, urine, 24 hour (03/17/2015 4:00 AM EDT) Analysis Performed At Patho logist Time Signature U24 Creat Conc 66 mg/dL CERNER MILLENNIUM U24 Creat Calc 2.21 (H) 0.80 - CERNER 1.90 MILLENNIUM gm/24hr Specimen Anatomical Collection Method Collection Time Receive d Time (Source) Location / / Volume Laterality Urine specimen 03/17/2015 4:00 AM 015 9:31 (specimen) EDT AM EDT Resulting Agency Comment Spec In Lab Alejo Garnett MD URINE ORDERABLES Performing Organization Address City/[facility]/Z[place] [address] CERNER MILLENNIUM (ABNORMAL) Creatinine Clearance, urine, 24 hour (03/17/2015 4:00 AM EDT) Analysis Performed At Patho logist Time Signature Creat 99 90 - 139 CERNER Clearance mL/min MILLENNIUM U24 Creat Conc 66 mg/dL CERNER MILLENNIUM U24 Creat Calc 2.21 (H) 0.80 - CERNER 1.90 MILLENNIUM gm/24hr Specimen Anatomical Collection Method Collection Time Receive d Time (Source) Location / / Volume Laterality Urine specimen 03/17/2015 4:00 AM 015 9:31 (specimen) EDT AM EDT Resulting Agency Comment Spec In Lab Alejo Garnett MD URINE ORDERABLES Performing Organization Address City/[facility]/ZIP Code Phon e Number [address] CERNER MILLENNIUM (ABNORMAL) Protein, urine, 24 hour (03/17/2015 4:00 AM EDT) Analysis Performed At Patho logist Time Signature U24 Prot Conc 11 <=80 mg/dL CERNER MILLENNIUM U24 Prot Calc 0.37 (H) <=0.15 CERNER gm/24hr MILLENNIUM Specimen Anatomical Collection Method Collection Time Receive d Time (Source) Location / / Volume Laterality Urine specimen 03/17/2015 4:00 AM 015 9:31 (specimen) EDT AM EDT Resulting Agency Comment Spec In Lab Alejo Garnett MD URINE ORDERABLES Performing Organization Address City/[facility]/ZIP Code Phon e Number [address] CERNER MILLENNIUM documented in this encounter Visit Diagnoses Diagnosis Transplanted kidney Kidney replaced by transplant Need for prophylactic immunotherapy Aftercare following organ transplant documented in this encounter Care Teams Clearing Inspector Relationship Specialty Start Date End Date Violetta Sanford MD PCP - General 04/02/14 [address] [place] [address] documented as of this encounter
--- OUTSIDE RECORDS SUMMARY | 2022-05-24 10:54 | XMS_ITS | Encounter Summary ---
:1955 Author Organization [facility] [place] [address] Care Team Providers Name Role Phone Violetta Sanford MD Primary Care Provider Encounter Details Date Type Department Care Team Description 12/02/2015 Laboratory Appointment Lab 3L Sylvia Dove elizabeth mellitus type [address] [phone] Social History Tobacco Use Types Packs/Day Years [...] 05/26/2022 Office Visit Otolaryngology Ricardo Panda PA [facility] Dr [address] [place] [address] (Wo rk) 06/02/2022 Infusion Hematology and Oncology 06/16/2022 Infusion Hematology and Oncology 06/21/2022 Office Visit Neurology Tyler Rojas MD [facility] Dr [address]i [place] [address] 6-2022 (Wo rk) 06/30/2022 Infusion Hematology and Oncology 07/14/2022 Infusion Hematology and Oncology 07/28/2022 Infusion Hematology and Oncology 08/11/2022 Infusion Hematology and Oncology 11/04/2022 Office Visit Rheumatology Dante Freedman PA [facility] [address] [place] [id number] (Wo rk) documented as of this encounter Procedures Procedure Name Priority Date/Time Associated Diagnosis Comme nts CREATININE STAT 12/02/2015 10:02 AM Diabetes mellitus typ e Results for this EDT 2, uncontrolled procedure ar e in the results section. TSH STAT 12/02/2015 10:02 AM Diabetes mellitus typ e Results for this EDT 2, uncontrolled procedure ar e in the results section. HEMOGLOBIN A1C STAT 12/02/2015 10:02 AM Diabetes mellitus t ype Results for this EDT 2, uncontrolled procedure ar e in the results section. documented in this encounter Results TSH (12/02/2015 10:02 AM EDT) athologist Signature TSH 1.44 0.27 - 4.20 SYLVIA CUEVASMELI mcIU/mL [facility] Specimen Anatomical Collection Method Collection Time Receive d Time (Source) Location / / Volume Laterality Blood specimen 12/02/2015 10:02 6 (specimen) AM EDT 10:15 AM EDT Resulting Agency Comment Spec In Lab Donell Hernandez MD CHEMISTRY ORDERABLES Performing Organization Address City/State/Z[place] [address] (ABNORMAL) Creatinine (12/02/2015 10:02 AM EDT) athologist Signature Creatinine 2.17 (H) 0.80 - SYLVIA GARRISON 1.50 mg/dL [facility] Comment: Please note that the pediatric reference intervals supplied above were not validated at [facility]. Results from pediatri c patients should be interpreted in conjunction to the patient's age, height and muscle mass. Estimated GFR 31 (L) >=60 [facility] Comment: This estimated GFR (eGFR) value [...] the following links into your internet browser. [email or web address] Specimen Anatomical Collection Method Collection Time Receive d Time (Source) Location / / Volume Laterality Blood specimen 12/02/2015 10:02 6 (specimen) AM EDT 10:15 AM EDT Resulting Agency Comment Spec In Lab Donell Hernandez MD CHEMISTRY ORDERABLES Performing Organization Address City/State/[place] [address] (ABNORMAL) Hemoglobin A1c (12/02/2015 10:02 AM EDT) Analysis Performed At Patho logist Time Signature Hemoglobin A1C 7.9 (H) 4.3 - 5.6 [facility] [...] Mellitus, Diabetes Care 2013; 36: Suppl. 1, S67-80 Est Avg Gluc 180 mg/dL [facility] Comment: [...] resources are available on [facility] website: [email or web address] CITY[facility]alc Scooby MALDONADO, Nba J, Sydnee R, et al. ??Tr anslating the A1C assay into estimated average glucose values. ??Diabetes Care 2008:31(8):6779-8188. Specimen Anatomical Collection Method Collection Time Receive d Time (Source) Location / / Volume Laterality Blood specimen 12/02/2015 10:02 6 (specimen) AM EDT 10:15 AM EDT Resulting Agency Comment Spec In Lab Donell Hernandez MD CHEMISTRY ORDERABLES Performing Organization Address City/State/[place] [address] documented in this encounter Visit Diagnoses Diagnosis Diabetes mellitus type 2, uncontrolled Type II or unspecified type diabetes fredo litus without mention of complication, uncontrolled documented in this encounter Care Teams Aircraft Inspection Record Clerk Relationship Specialty Start Date End Date Violetta Sanford MD PCP - General 04/02/14 [address] [place] [address] documented as of this encounter
--- OUTSIDE RECORDS SUMMARY | 2022-05-24 10:54 | XMS_ITS | Encounter Summary ---
:1955 Author Organization [facility] [place] [address] Care Team Providers Name Role Phone Violetta Sanford MD Primary Care Provider Encounter Details Date Type Department Care Team Description 12/07/2016 Laboratory Appointment Lab 3L Jere you type 2 [facility] diabetes mellitus with [place] [phone] Social History Tobacco Use Types Packs/Day Years [...] Ricardo Panda PA [facility] er Dr [place] [address] (Wo rk) 06/02/2022 Infusion Hematology and Oncology 06/16/2022 Infusion Hematology and Oncology 06/21/2022 Office Visit Neurology Tyler Rojas MD [facility] Dr [place], [place] [address]2022 (Wo rk) 06/30/2022 Infusion Hematology and Oncology 07/14/2022 Infusion Hematology and Oncology 07/28/2022 Infusion Hematology and Oncology 08/11/2022 Infusion Hematology and Oncology 11/04/2022 Office Visit Rheumatology Dante Freedman PA [facility] DR RHEUMATOLOGY [place] [address] (Wo rk) documented as of this encounter Procedures Procedure Name Priority Date/Time Associated Diagnosis Comme nts CREATININE STAT 12/07/2016 10:34 Uncontrolled type 2 Resu lts for this AM EDT diabetes mellitus procedure are in with other specified the res ults complication section. TSH STAT 12/07/2016 10:34 Uncontrolled type 2 Resu lts for this AM EDT diabetes mellitus procedure are in with other specified the res ults complication section. LDL CHOLESTEROL, STAT 12/07/2016 10:34 Uncontrolled type 2 Results for this DIRECT AM EDT diabetes mellitus procedure are in with other specified the res ults complication section. HEMOGLOBIN A1C STAT 12/07/2016 10:34 Uncontrolled type 2 Re sults for this AM EDT diabetes mellitus procedure are in with other specified the res ults complication section. documented in this encounter Results LDL Cholesterol, Direct (12/07/2016 10:34 AM EDT) P athologist Signature LDL Chol 54 <=190 [facility] Direct mg/dL [facility] Specimen Anatomical Collection Method Collection Time Receive d Time (Source) Location / / Volume Laterality Blood specimen 12/07/2016 10:34 7 (specimen) AM EDT 10:39 AM EDT Resulting Agency Comment Spec In Lab Donell Hernandez MD CHEMISTRY ORDERABLES Performing Organization Address City/State/[place] [address] TSH (12/07/2016 10:34 AM EDT) P athologist Signature TSH 1.93 0.27 - 4.20 JERE GARRISON mcIU/mL [facility] Specimen Anatomical Collection Method Collection Time Receive d Time (Source) Location / / Volume Laterality Blood specimen 12/07/2016 10:34 7 (specimen) AM EDT 10:39 AM EDT Resulting Agency Comment Spec In Lab Donell Hernandez MD CHEMISTRY ORDERABLES Performing Organization Address City/[facility]/ZIP [place] [address] (ABNORMAL) Creatinine (12/07/2016 10:34 AM EDT) P athologist Signature Creatinine 1.83 (H) 0.80 - [facility] 1.50 mg/dL [facility] Comment: Please note that the pediatric reference intervals supplied above were not validated at [facility]. Results from pediatri c patients should be interpreted in conjunction to the patient's age, height and muscle mass. Estimated GFR 38 (L) >=60 [facility] Comment: This estimated GFR [...] the following links into your internet browser. [email or web address] Specimen Anatomical Collection Method Collection Time Receive d Time (Source) Location / / Volume Laterality Blood specimen 12/07/2016 10:34 7 (specimen) AM EDT 10:39 AM EDT Resulting Agency Comment Spec In Lab Donell Hernandez MD CHEMISTRY ORDERABLES Performing Organization Address City/[facility]/ZIP [place] [address] (ABNORMAL) Hemoglobin A1c (12/07/2016 10:34 AM EDT) Analysis Performed At Patho logist Time Signature Hemoglobin A1C 8.6 (H) 4.3 - 5.6 [facility] [...] 36: Suppl. 1, S67-74 Est Avg Gluc 200 mg/dL [facility] Comment: eAG equivalents for HbA1c percentages: HbA1c(%) ?eAG(mg/dL) 6.0 ?126 6.5 ?140 7.0 ?154 7.5 ?169 8.0 ?183 8.5 ?197 9.0 ?212 9.5 ?226 10.0 ? 240 Limitations: The eAG calculation has not been validated on women, individuals below 18 years old and above 70 years old, and individuals with hemoglobinopathies. Additional resources are available on [facility] ADA website. Scooby MALDONADO, Nba J, Sydnee R, et al. ??Tr anslating the A1C assay into estimated average glucose values. ??Diabetes Care 2008:31(8):9087-0289. Specimen Anatomical Collection Method Collection Time Receive d Time (Source) Location / / Volume Laterality Blood specimen 12/07/2016 10:34 7 (specimen) AM EDT 10:39 AM EDT Resulting Agency Comment Spec In Lab Donell Hernandez MD CHEMISTRY ORDERABLES Performing Organization Address City/State/[place] [address] documented in this encounter Visit Diagnoses Diagnosis Uncontrolled type 2 diabetes mellitus wi th other specified complication documented in this encounter Care Teams Chief Yeoman Relationship Specialty Start Date End Date Violetta Sanford MD PCP - General 04/02/14 [address] [place] [address] documented as of this encounter
--- OUTSIDE RECORDS SUMMARY | 2022-05-24 10:54 | XMS_ITS | Encounter Summary ---
:1955 Author Organization [facility] [place] [address] Care Team Providers Name Role Phone Violetta Sanford MD Primary Care Provider Reason for Visit Reason Onset Date Comments Medication Refill 04/08/2016 Encounter Details Date Type Department Care Team Description 04/08/2016 Refill Solid Organ Transplant at [place], Marguerite Akhtar [place] [phone] Social History Tobacco Use Types Packs/Day [...] [facility] [address] [place] [address] (Wo rk) 06/02/2022 Infusion Hematology and Oncology 06/16/2022 Infusion Hematology and Oncology 06/21/2022 Office Visit Neurology Tyler Rojas MD [facility] Dr Sofi [place] [phone] (Wo rk) 06/30/2022 Infusion Hematology and Oncology 07/14/2022 Infusion Hematology and Oncology 07/28/2022 Infusion Hematology and Oncology 08/11/2022 Infusion Hematology and Oncology 11/04/2022 Office Visit Rheumatology Dante Freedman PA [facility] RHEUMATOLOGY [place], [place] [address] (Wo rk) documented as of this encounter Visit Diagnoses Diagnosis Transplanted kidney Kidney replaced by transplant documented in this encounter Care Teams Carbonizer Relationship Specialty Start Date End Date Violetta Sanford MD PCP - General 04/02/14 [address] [place] [address] documented as of this encounter
--- OUTSIDE RECORDS SUMMARY | 2022-05-24 10:54 | XMS_ITS | Encounter Summary ---
:1955 Author Organization [facility] [place] [address] Care Team Providers Name Role Phone Violetta Sanford MD Primary Care Provider Encounter Details Date Type Department Care Team Description 09/27/2016 Office Visit Neurology at [facility] Shivam Rojas, Tremor, essential [facility] [place] [phone] Neurology [phone] [place] [address] (Wo rk) Social History Tobacco Use Types [...] Sign Reading Time Taken Comments Blood Pressure 141/46 09/27/2016 8:45 AM EST Pulse 63 09/27/2016 8:45 AM EST Temperature - - Respiratory Rate - - Oxygen Saturation - - Inhaled Oxygen - - Concentration Weight 149.7 kg (330 lb) 09/27/2016 8:45 AM reported - wheelchair EST Height 198.1 cm (6' 6) 09/27/2016 8:45 AM reported - p rosthetic EST legs Body Mass Index 38.14 09/27/2016 8:45 AM EST documented in this encounter Progress Notes Shivam Rojas MD - 09/27/2016 9:00 AM EST Leroy Torres is a 61-year-old man with essential tremor, previously followed by Angel Boyd. He has a history of diabetes and end-stage renal disease status post transplant and bilateral leg amputations. He has diabetic neuropathy and neuropathic pain for which he takes gabapentin 900 mg 3 times a day in addition to the propanolol sustained release 160 mg 3 times a day. He has been on this dose for quite some time. He thinks the tremor is getting a little bit worse. He tells me that tremor is due to an electrocution and denies any family history, but I think this is probably not the case. Anyway, I do not think Klonopin or primidone would be appropriate for him, given the potential side effects. In addition, I am reluctant to increase the propanolol at all. I think it would be reasonable to try to get a spoon that can help him eat by adjusting for the tremor. He has looked into that in the past, but they cost $300.00. He has not looked into it for 10 years, so he will call his insurance company to see if he can get that covered and let me know. I would, of course, be very happy to help with this. He does find it hard to eat and I think this could be very helpful. We discussed surgical options, but again this would be very high risk for him. He seems to be functioning okay, so I think this should be reserved in case things worsen significantly. Otherwise, things are going just fine. He lives [place] in the [facility] and they still have 3 feet of snow. He has new prosthetics and is still learning to adjust to these, although he has not fallen. On physical exam, he has a high amplitude tremor in the bilateral hands, it also spilled over into the chin. It is exacerbated by action and posture. It is not present at rest. He is fairly accurate on [id number], although the tremor, of course, gets in the way. He has bilateral below-knee amputations. He is a very large man and is somewhat obese, but otherwise is very pleasant. There is no tremor heard in his voice. I will renew his gabapentin and Inderal today. He is not having any side effects. We will plan to visit again in 6 months, unless something comes up sooner. I spent 25 minutes in [id number] consultation with this patient of which greater than 15 minutes was spent in supportive counseling and therapeutic planning. Shivam Rojas MD 09/27/2016 documented in this encounter Plan of Treatment Upcoming Encounters Date Type Specialty Care Team Description 05/26/2022 Office Visit Otolaryngology Ricardo Panda PA [facility] [place] [address] (Wo rk) 06/02/2022 Infusion Hematology and Oncology 06/16/2022 Infusion Hematology and Oncology 06/21/2022 Office Visit Neurology Tyler Rojas MD [facility] Neurology [place], [place] [phone] (Wo rk) 06/30/2022 Infusion Hematology and Oncology 07/14/2022 Infusion Hematology and Oncology 07/28/2022 Infusion Hematology and Oncology 08/11/2022 Infusion Hematology and Oncology 11/04/2022 Office Visit Rheumatology Dante Freedman PA [facility] RHEUMATOLOGY [place], [place] [address] (Wo rk) documented as of this encounter Visit Diagnoses Diagnosis Tremor, essential Essential and other specified forms of t remor documented in this encounter Care Teams Field Tech Relationship Specialty Start Date End Date Violetta Sanford MD PCP - General 04/02/14 [facility] [address] [place] [address] documented as of this encounter
--- OUTSIDE RECORDS SUMMARY | 2022-05-24 10:54 | XMS_ITS | Encounter Summary ---
:1955 Author Organization [place] [address] Care Team Providers Name Role Phone Violetta Sanford MD Primary Care Provider Reason for Visit Reason Comments Other Encounter Details Date Type Department Care Team Description 07/10/2015 Telephone Solid Organ Transpla nt at [facility] [place] [phone] Social History Tobacco Use Types Packs/Day [...] this encounter Miscellaneous Notes Telephone Encounter - Awa Calderon - 07/10/2015 1:21 PM EST ----- Message from Flakita Kaminski sent at 07/10/2015 1:04 PM EST ----- Contact: Re getting secondary insurance. He has some questions. Above message noted. Placed call to patient, he states that he has not received the letter I mailed him last week (copy in scanned docs) that he needs to [facility] I advised I will mail another copy to him. I offered to email it but he stated that he can't print it. Copy of letter mailed today. documented in this encounter Plan of Treatment Upcoming Encounters Date Type Specialty Care Team Description 05/26/2022 Office Visit Otolaryngology Ricardo Panda PA [facility] [place], [place] [address] (Wo rk) 06/02/2022 Infusion Hematology and Oncology 06/16/2022 Infusion Hematology and Oncology 06/21/2022 Office Visit Neurology Tyler Rojas MD [facility] Neurology [place], [place] [phone] (Wo rk) 06/30/2022 Infusion Hematology and Oncology 07/14/2022 Infusion Hematology and Oncology 07/28/2022 Infusion Hematology and Oncology 08/11/2022 Infusion Hematology and Oncology 11/04/2022 Office Visit Rheumatology Dante Freedman PA [facility] RHEUMATOLOGY [place], [place] [address] (Wo rk) documented as of this encounter Visit Diagnoses Not on filedocumented in this encounter Care Teams Pelt Shearer Relationship Specialty Start Date End Date Violetta Sanford MD PCP - General 04/02/14 [address] [place] [address] documented as of this encounter
--- OUTSIDE RECORDS SUMMARY | 2022-05-24 10:54 | XMS_ITS | Encounter Summary ---
:1955 Author Organization [facility] [place] [address] Care Team Providers Name Role Phone Violetta Sanford MD Primary Care Provider Encounter Details Date Type Department Care Team Description 09/03/2016 Hospital [place] [phone] Social History Tobacco Use Types Packs/Day [...] Sig Dispensed Refills Start Date End Date acetaminophen Take 650 mg by mouth 0 [...] 81 mg by mouth 0 tablet daily. doxycycline Take 1 tablet by mouth 28 tablet 0 08/31/2016 0 09/14/2016 (VIBRA-TABS) 100 mg 2 times daily for 14 Tablet days. furosemide (LASIX) 40 Take 40 mg by mouth 0 09/27/2016 mg Tablet daily. losartan (COZAAR) 25 Take 12.5 mg by mouth 0 02/03/2017 mg Tablet daily. cholecalciferol, Take 2,000 Units by 0 05/31/2016 12/13/2017 Vitamin D3, 2,000 mouth daily. unit Tablet PROGRAF 1 mg Take 1 capsule by 60 capsule 11 04/08/201601/06 CapsuleIndications: mouth 2 times daily. Transplanted kidney KIDNEY TRANSPLANT Z94.0. TRANSPLANT DATE - 02/29/2008 CELLCEPT 250 mg Take 2 capsules by 120 capsule 11 04/08/2016 01/06/2017 CapsuleIndications: mouth 2 times daily. Transplanted kidney Kidney Transplant Z94.0. Transplant Date; 02-29-08 chlorhexidine Apply topically daily 120 mL 0 01/05/2016 09/27/2016 (HIBICLENS) 4 % as needed. Liquid LEVEMIR FLEXTOUCH INJECT 60 UNITS IN 45 mL 11 12/24/2015 09/27/2016 Insulin Pen MORNING AND 70 UNITS AT NIGHT atorvastatin Take 20 mg by mouth 0 (LIPITOR) 20 mg daily. Tablet ipratropium-albuterol Take 3 mLs by 1 12/01/2015 11/19/2020 (DUONEB) 0.5 mg-3 nebulization 2 times mg(2.5 mg base)/3 mL daily. Solution for Nebulization STIOLTO RESPIMAT Inhale 2 puffs into 1 11/27/2015 05/27/2021 2.5-2.5 mcg/actuation the lungs daily. Mist VENTOLIN HFA 90 Inhale 2 puffs into 0 10/17/2015 05/27/2021 mcg/actuation HFA the lungs as needed. Aerosol Inhaler gabapentin Take 3 capsules by 720 capsule 0 11/12/201509/15 (NEURONTIN) 300 mg mouth 3 times daily. CapsuleIndications: Type 2 diabetes mellitus with diabetic neuropathy Insulin Lispro Inject 15-30 Units 0 (HUMALOG) 100 unit/mL subcutaneously 4 times Insulin Pen daily. propranolol (INDERAL Take 160 mg by mouth 3 0 02/201509/27/2016 [place]) 160 mg times daily. Capsule,Sustained Action 24 hr Insulin [place], Form faxed for new Rx 450 each [...] Ricardo Panda PA [facility] [address] [place], [place] [address] (Wo rk) 06/02/2022 Infusion Hematology and Oncology 06/16/2022 Infusion Hematology and Oncology 06/21/2022 Office Visit Neurology Tyler Rojas MD [facility] Neurology [place], [place] [phone] (Wo rk) 06/30/2022 Infusion Hematology and Oncology 07/14/2022 Infusion Hematology and Oncology 07/28/2022 Infusion Hematology and Oncology 08/11/2022 Infusion Hematology and Oncology 11/04/2022 Office Visit Rheumatology Dante Freedman PA [facility] RHEUMATOLOGY [place], [place] [address] (Wo rk) documented as of this encounter Procedures Procedure Name Priority Date/Time Associated Diagnosis Comme nts TACROLIMUS LEVEL Routine 09/03/2016 12:00 PM Resu lts for this EST procedure are i n the results section. documented in this encounter Results Tacrolimus level (09/03/2016 12:00 PM EST) P athologist Signature Tacrolimus Lvl 3.5 ng/mL [facility] Comment: Trough therapeutic: ??5-15 ng/mL Performed by ultra-performance liquid ch romatography tandem mass spectrometry (UPLCMS/MS). Specimen Anatomical Collection Method Collection Time Receive d Time (Source) Location / / Volume Laterality Blood specimen Venous Draw / 09/03/2016 12:00 09/06/19 17 7:59 (specimen) Unknown PM EST AM EST Resulting Agency Comment Spec In Lab Alejo Garnett MD CHEMISTRY ORDERABLES Performing Organization Address City/State/[place] [address] documented in this encounter Visit Diagnoses Not on filedocumented in this encounter Care Teams [employer] Relationship Specialty Start Date End Date Violetta Sanford MD PCP - General 04/02/14 [address] [place] [address] documented as of this encounter
--- OUTSIDE RECORDS SUMMARY | 2022-05-24 10:54 | XMS_ITS | Encounter Summary ---
:1955 Author Organization [facility] [place] [address] Care Team Providers Name Role Phone Violetta Sanford MD Primary Care Provider Encounter Details Date Type Department Care Team Description 08/31/2016 Telephone Solid [place] [facility] Marguerite Crespo, [place] [address] Social History Tobacco Use Types Packs/Day [...] this encounter Miscellaneous Notes Telephone Encounter - Marguerite Crespo, RN - 08/31/2016 4:19 PM EST Patient called to question whether or not Bactrim DS was safe for him to take. When I called pt to discuss why he was taking it, he tells me that he has an abscess under his armpit, but that he was no longer taking the Bactrim anyway. When I asked him why, Leroy told me that he had taken it and had a bad reaction to it, felt poorly, and sought medical attention at his local ED yesterday and they had switched him to Levoquin. Advised patient that Levoquin was unsafe for his kidney transplant and that he should stop taking this, and we would request c/s for appropriate treatment. Called [facility] where patient had reported to ED,they searched for but could not find a culture in process or resulted from the fluid sample, despite acknowledging they took one. Per Dr. Garnett, patient is to take Doxycycline, 100mg BID x 14 days and have his lab work tomorrow or and follow up with his PCP. Advised him that this antibiotic was NOT safe for him to take in the future should this infection recur. Pt stated understanding of plan of care. No further questions at this time. Advised to call with additional concerns. Marguerite Crespo, RN Post Application Technician [facility] [place] Transplant documented in this encounter Plan of Treatment Upcoming Encounters Date Type Specialty Care Team Description 05/26/2022 Office Visit Otolaryngology Ricardo Panda PA [facility] [address] [place] [address] (Wo rk) 06/02/2022 Infusion Hematology and Oncology 06/16/2022 Infusion Hematology and Oncology 06/21/2022 Office Visit Neurology Tyler Rojas MD [facility] [place] [phone] (Wo rk) 06/30/2022 Infusion Hematology and Oncology 07/14/2022 Infusion Hematology and Oncology 07/28/2022 Infusion Hematology and Oncology 08/11/2022 Infusion Hematology and Oncology 11/04/2022 Office Visit Rheumatology Dante Freedman PA [facility] [place]HE[place]ATOLOGY [place] [address] (Wo rk) documented as of this encounter Visit Diagnoses Not on filedocumented in this encounter Care Teams [place] Relationship Specialty Start Date End Date Violetta Sanford MD PCP - General 04/02/14 [facility] ALONDRA CONRAD [address] [place] [id number] documented as of this encounter
--- OUTSIDE RECORDS SUMMARY | 2022-05-24 10:54 | XMS_ITS | Encounter Summary ---
:1955 Author Organization [facility] Address [address] [facility] [address] [place] [id number] Care Team Providers Name Role Phone Violetta Sanford MD Primary Care Provider Encounter Details Date Type Department Care Team Description 12/02/2015 Office Visit Endocrinology at [facility] Donell Hernandez, S/P bilateral BKA (below kne e amputation); [facility] DM type 2 causing complication; [facility] Body mass index (BMI) of 37. 0-37.9 [place] [address] CENTER [phone] [address] [place] [id number] Social History Tobacco Use Types Packs/Day Years [...] Sign Reading Time Taken Comments Blood Pressure 154/62 12/02/2015 10:53 AM EDT Pulse 63 12/02/2015 10:53 AM EDT Temperature - - Respiratory Rate - - Oxygen Saturation - - Inhaled Oxygen - - Concentration Weight 153.8 kg (339 lb) 12/02/2015 10:53 -18 lbs for p rostetic AM EDT legs Height 193 cm (6' 4) 12/02/2015 10:53 AM EDT Body Mass Index 41.26 12/02/2015 10:53 AM EDT documented in this encounter Progress Notes Donell Hernandez MD - 12/02/2015 11:03 AM EDT Year of diagnosis: Regimen ____ [...] bka R and morbid obesity. From Jun 2015 1) DM2 - he has improved his [...] not needed laser rx in some time Increasing SMITH Recent PFT's - deteriorating Now has a nebulizer - helpful Recent sleep study for sleep apnea Knee prosthesis need upgrade of bankman sheathmaterials. Has a callus/ulcer of l stump. All of this limits walking Worse a sensor and learned he was having afternoon lows Seeing Mary Kingston for diabetes education Regimen Basal levemir 50/50 bid Bolus humalog 25-40 units per meal (w snack) qid , takes less at lunch to avoid stacking Uses a sliding scale hbgm 4 x a day Usually 200's Before meals One episode of 600's in afternoon Hypo none Diet Avoiding sweets B 2 donut Sn L chowder Sn D casserole Sn Exercise Not much - leg fittings need adjustment - will have new insurance in jul complications Eyes prior laser therapy Feet Bilateral BKA Kidneys transplant - saw transplant team in February autonomic: no gastroparesis bladder hypo unaware tachycardia cardiac some chest pain on exertion + shortness of breath at rest No history of stent cabg chf prevention: last eye exam: Next week last microalbumin :2011 last Cr:today last lipid panel:2011 regular electric relay tester:no special shoes:no flu shot :yes pneumovax: 2011 acei yes Asa Yes statin yes Your Medications These changes are accurate as of: 12/02/15 11:04 AM. If you have any questions, ask [...] 500 mg Quantity: 120 capsule Refills: 11 DULERA 200-5 mcg/actuation Hfaa Inhale 2 puffs [...] Kit Inject into the muscle. Refills: 0 insulin detemir Inpn Commonly known as: LEVEMIR [...] Nebu Commonly known as: DUONEB Refills: 1 losartan 50 mg Tab Commonly known as: COZAAR Take 50 mg by mouth daily. 50 mg Refills: 0 montelukast 10 mg Tab Commonly [...] by mouth daily. 160 mg Refills: 0 STIOLTO RESPIMAT 2.5-2.5 mcg/actuation Mist Generic drug: tiotropium-olodaterol Refills: 1 VENTOLIN HFA 90 mcg/actuation Hfaa Inhale 2 puffs into the lungs as needed. Generic drug: albuterol 2 puff Refills: 0 STOPPED Medications cholecalciferol (Vitamin D3) 2,000 unit Tab Stopped by: Donell Hernandez MD simvastatin 10 mg Tab Commonly known as: ZOCOR Stopped by: Donell Hernandez MD Ht 193 cm (6' 4) Wt 153.769 kg (339 lb) BMI 41.28 kg/m2 Home BP is 150/62 Home weigh [...] 4.3 - 5.6 % Est Avg Gluc 180 mg/dL Creatinine Result Value Ref Range Creatinine 2.17 (H) 0.80 - 1.50 mg/dL Estimated GFR 31 (L) >=60 TSH Result Value Ref Range TSH 1.44 0.27 - 4.20 mcIU/mL 1) dm2 This is much better than his usual control. He credits this to his local assistant health educator she's been telling me this for years, [...] retinopathy - follows up regularly with ophthamology documented in this encounter Plan of Treatment Upcoming Encounters Date Type Specialty Care Team Description 05/26/2022 Office Visit Otolaryngology Ricardo Panda PA [facility] [address] [place], [place] [address] (Wo rk) 06/02/2022 Infusion Hematology and Oncology 06/16/2022 Infusion Hematology and Oncology 06/21/2022 Office Visit Neurology Tyler Rojas MD [facility] er Neurology [place], [place] [phone] (Wo rk) 06/30/2022 Infusion Hematology and Oncology 07/14/2022 Infusion Hematology and Oncology 07/28/2022 Infusion Hematology and Oncology 08/11/2022 Infusion Hematology and Oncology 11/04/2022 Office Visit Rheumatology Dante Freedman PA [facility] RHEUMATOLOGY [place], [place] [address] (Wo rk) documented as of this encounter Results TSH (06/08/2016 10:10 AM EST) athologist Signature TSH 1.81 0.27 - 4.20 [facility] mcIU/mL [facility] Specimen Anatomical Collection Method Collection Time Receive d Time (Source) Location / / Volume Laterality Blood specimen 06/08/2016 10:10 6 (specimen) AM EST 10:28 AM EST Resulting Agency Comment Spec In Lab Donell Hernandez MD CHEMISTRY ORDERABLES Performing Organization Address City/State/[place] [address] (ABNORMAL) Creatinine (06/08/2016 10:10 AM EST) athologist Signature Creatinine 1.77 (H) 0.80 - [facility] 1.50 mg/dL [facility] Comment: Please note that the pediatric reference intervals supplied above were not validated at [facility]. Results from pediatri c patients should be interpreted in conjunction to the patient's age, height and muscle mass. Estimated GFR 39 (L) >=60 [facility] Comment: This estimated [...] the following links into your internet browser. [email or web address] Specimen Anatomical Collection Method Collection Time Receive d Time (Source) Location / / Volume Laterality Blood specimen 06/08/2016 10:10 6 (specimen) AM EST 10:28 AM EST Resulting Agency Comment Spec In Lab Donell Hernandez MD CHEMISTRY ORDERABLES Performing Organization Address City/State/[place] [address] (ABNORMAL) Hemoglobin A1c (06/08/2016 10:10 AM EST) Analysis Performed At [facility] Time Signature Hemoglobin A1C 8.8 (H) 4.3 [...] Mellitus, Diabetes Care 2013; 36: Suppl. 1, E67-10 Est Avg Gluc 206 mg/dL [facility] Comment: eAG equivalents for HbA1c percentages: HbA1c(%) ?eAG(mg/dL) 6.0 ?126 6.5 ?140 7.0 ?154 7.5 ?169 8.0 ?183 8.5 ?197 9.0 ?212 9.5 ?226 10.0 ? 240 Limitations: The eAG calculation has not been validated on women, individuals below 18 years old and above 70 years old, and individuals with hemoglobinopathies. Additional resources are available on [facility] website: [email or web address] Scooby MALDONADO, Nba J, Sydnee R, et al. ??Tr anslating the A1C assay into estimated average glucose values. ??Diabetes Care 2008:31(8):1994-1878. Specimen Anatomical Collection Method Collection Time Receive d Time (Source) Location / / Volume Laterality Blood specimen 06/08/2016 10:10 6 (specimen) AM EST 10:28 AM EST Resulting Agency Comment Spec In Lab Donell Hernandez MD CHEMISTRY ORDERABLES Performing Organization Address City/State/[place] [address] documented in this encounter Visit Diagnoses Diagnosis S/P bilateral BKA (below knee amputation ) Lower limb amputation, below knee DM type 2 causing complication Type II or unspecified type diabetes fredo litus with unspecified complication, not stated as uncontrolled Body mass index (BMI) of 37.0-37.9 in ad ult Body Mass Index 37.0-37.9, adult documented in this encounter Care Teams Dean [employer] Girls Relationship Specialty Start Date End Date Violetta Sanford MD PCP - General 04/02/14 [address] [address] [place] [address] documented as of this encounter
--- OUTSIDE RECORDS SUMMARY | 2022-05-24 10:54 | XMS_ITS | Encounter Summary ---
:1955 Author Organization [facility] [place] [address] Care Team Providers Name Role Phone Violetta Sanford MD Primary Care Provider Encounter Details Date Type Department Care Team Description 08/06/2016 Laboratory Appointment Lab 3L Sylvia Cooper Kidney replaced by [facility] [place] [id number] Social History Tobacco Use Types Packs/Day Years [...] Panda PA [facility] Medical [facility] er Dr Rodriguez MD 0375 (Wo rk) 06/02/2022 Infusion Hematology and Oncology 06/16/2022 Infusion Hematology and Oncology 06/21/2022 Office Visit Neurology Tyler Rojas MD [facility] er Dr [place] [phone] (Wo rk) 06/30/2022 Infusion Hematology and Oncology 07/14/2022 Infusion Hematology and Oncology 07/28/2022 Infusion Hematology and Oncology 08/11/2022 Infusion Hematology and Oncology 11/04/2022 Office Visit Rheumatology Dante Freedman PA [facility] DR ARROYO BONNY MD 0375 (Wo rk) documented as of this encounter Procedures Procedure Name Priority Date/Time Associated Comments Diagnosis HEMOGRAM STAT 08/06/2016 7:41 AM Kidney replaced by Res ults for this EST transplant procedure are i n the results section. DIFFERENTIAL, STAT 08/06/2016 7:41 AM Kidney replaced by Re sults for this AUTOMATED EST transplant procedure are i n the results section. TACROLIMUS LEVEL STAT 08/06/2016 7:41 AM Kidney replaced by Results for this EST transplant procedure are i n the results section. RETICULOCYTE COUNT STAT 08/06/2016 7:41 AM Kidney replaced by Results for this EST transplant procedure are i n the results section. CBC (WITH DIFF) STAT 08/06/2016 7:41 AM Kidney replaced by EST transplant URIC ACID STAT 08/06/2016 7:41 AM Kidney replaced by Res ults for this EST transplant procedure are i n the results section. PHOSPHORUS STAT 08/06/2016 7:41 AM Kidney replaced by Res ults for this EST transplant procedure are i n the results section. MAGNESIUM STAT 08/06/2016 7:41 AM Kidney replaced by Res ults for this EST transplant procedure are i n the results section. HEMOGLOBIN A1C STAT 08/06/2016 7:41 AM Results for this EST procedure are i n the results section. CHOLESTEROL, TOTAL STAT 08/06/2016 7:41 AM Kidney replaced by Results for this EST transplant procedure are i n the results section. COMPREHENSIVE STAT 08/06/2016 7:41 AM Kidney replaced by Re sults for this METABOLIC PANEL EST transplant procedure ar e in (NON-FASTING) the results section. PROTEIN/CREATININE STAT 08/06/2016 7:38 AM Kidney replaced by Results for this RATIO, URINE EST transplant procedure are i n the results section. URINALYSIS WITH REFLEX STAT 08/06/2016 7:38 AM Kidney repla ty by Results for this CULTURE EST transplant procedure are i n the results section. documented in this encounter Results (ABNORMAL) Hemoglobin A1c (08/06/2016 7:41 AM EST) Analysis Performed At Patho logist Time Signature Hemoglobin A1C 9.4 (H) 4.3 - 5.6 [facility] Comment: Reference Range: 4.3 - [...] 36: Suppl. 1, S67-74 Est Avg Gluc 223 mg/dL [facility] Comment: eAG equivalents for HbA1c percentages: HbA1c(%) ?eAG(mg/dL) 6.0 ?126 6.5 ?140 7.0 ?154 7.5 ?169 8.0 ?183 8.5 ?197 9.0 ?212 9.5 ?226 10.0 ? 240 Limitations: The eAG calculation has not been validated on women, individuals below 18 years old and above 70 years old, and individuals with hemoglobinopathies. Additional resources are available on [place] website: [email or web address] OKLAHOMA CITYadacalc Scooby MALDONADO, Nba J, Sydnee R, et al. ??Tr anslating the A1C assay into estimated average glucose values. ??Diabetes Care 2008:31(8):5517-0612. Specimen Anatomical Collection Method Collection Time Receive d Time (Source) Location / / Volume Laterality Blood specimen Venous Draw / 08/06/2016 7:41 AM 2016 4:13 (specimen) Unknown EST PM EST Resulting Agency Comment Spec In Lab Alejo Garnett MD CHEMISTRY ORDERABLES Performing Organization Address City/State/[place] [address] Differential, Automated (08/06/2016 7:41 AM EST) athologist Signature Neutrophils % 52.6 % [facility] Neutr Abs (ANC) 3.84 1.70 - [facility] 6.10 [facility] x10(3)/[facility] LABORATORY Lymphocytes % 32.1 % [facility] Lymphocytes Abs 2.4 0.9 - 3.2 [facility] x10(3)/[facility] LABORATORY Monocytes % 9.7 % [facility] Monocyte Abs 0.7 0.3 - 0.9 [facility] x10(3)/[facility] LABORATORY Eosinophils % 4.5 % [facility] Eosinophils Abs 0.3 0.0 - 0.4 [facility] x10(3)/[facility] LABORATORY Basophils % 1.0 % [facility] Basophils Abs 0.1 0.0 - 0.1 [facility] x10(3)/[facility] LABORATORY Immature Gran % 0.10 % [facility] Comment: Immature granulocytes(IG's)percentage an d absolute count will include metamyelocytes, myelocytes, and promyelo cytes. Blood smears from CBCs yielding IG's will be scanned manually for concor dance. If this scan disagrees with the automated IG or if promyelocytes are not ed, a manual differential will be performed. Courtney Gran Abs 0.01 0.00 - 0.04 x10(3)/[facility] Y [facility] Specimen Anatomical Collection Method Collection Time Receive d Time (Source) Location / / Volume Laterality Blood specimen 08/06/2016 7:41 AM 017 7:44 (specimen) EST AM EST Resulting Agency Comment Spec In Lab Alejo Garnett MD HEMATOLOGY ORDERABLES Performing Organization Address City/State/ZIP Code Phon e Number [address] (ABNORMAL) Hemogram (08/06/2016 7:41 AM EST) Analysis Performed At Patho logist Time Signature WBC 7.3 4.0 - 9.5 [facility](3[facility] LABORATORY RBC 3.97 (L) 4.58 - [place] [facility] 5.54 [facility] x10(6)/[facility] LABORATORY Hemoglobin 12.2 (L) 13.7 - [facility] gm/dL [facility] Hematocrit 37.7 (L) 40.5 - [facility] 48.5 % [facility] MCV 95.0 (H) 82.9 - [facility] 93.1 [facility] LABORATORY MCH 30.7 27.5 - [facility] 32[facility] [facility] MCHC 32.4 32.0 - [place] 35.7 gm/dL [facility] Platelets 233 145 - 357 [facility] x10(3)/[facility] LABORATORY RDWSD 44.8 36.0 - [facility] 45.0 [facility] LABORATORY RDWCV 12.9 11.4 - [facility] 13.8 % [facility] MPV 8.6 7.6 - 12.9 [facility] LABORATORY nRBC % Auto 0.0 % [facility] nRBC Abs Auto 0.000 0.000 - [facility] MELI 0.000 [facility] x10(3)/[facility] LABORATORY Specimen Anatomical Collection Method Collection Time Receive d Time (Source) Location / / Volume Laterality Blood specimen 08/06/2016 7:41 AM 017 7:44 (specimen) EST AM EST Resulting Agency Comment Spec In Lab Alejo Garnett MD HEMATOLOGY ORDERABLES Performing Organization Address City/State/ZIP Code Phon e Number [address] Phosphorus (08/06/2016 7:41 AM EST) P athologist Signature Phosphorus 3.8 2.5 - 4.5 [facility] mg/dL [facility] Specimen Anatomical Collection Method Collection Time Receive d Time (Source) Location / / Volume Laterality Blood specimen 08/06/2016 7:41 AM 017 7:44 (specimen) EST AM EST Resulting Agency Comment Spec In Lab Alejo Garnett MD CHEMISTRY ORDERABLES Performing Organization Address City/[facility]/ZIP Code Phon e Number [address] Magnesium (08/06/2016 7:41 AM EST) P athologist Signature Magnesium 0.75 0.69 - 1.07 [facility] mmol/L [facility] Specimen Anatomical Collection Method Collection Time Receive d Time (Source) Location / / Volume Laterality Blood specimen 08/06/2016 7:41 AM 017 7:44 (specimen) EST AM EST Resulting Agency Comment Spec In Lab Alejo Garnett MD CHEMISTRY ORDERABLES Performing Organization Address City/[facility] Phon e Number [address] (ABNORMAL) Comprehensive metabolic panel (non-fasting) (08/06/2016 7:41 AM EST) P athologist Signature Glucose Lvl 239 (H) 65 - 199 [facility] mg/dL [facility] Comment: Diabetes: >=200 mg/dL plus symp toms BUN 43 (H) 10 - 20 mg/dL [facility] Creatinine 2.23 (H) 0.80 - 1.50 mg/dL [facility] Comment: Please note that the pediatric reference intervals supplied above were not validated at [facility]. Results from pediatri c patients should be interpreted in conjunction to the patient's age, height and muscle mass. Sodium 141 135 - 145 mmol/L [facility] [...] estions. Chloride 103 98 - 107 mmol/L [facility] CO2 24 22 - 31 mmol/L [facility] Anion Gap 14 5 - 15 mmol/L [facility] Calcium 9.5 8.5 - 10.5 mg/dL [facility] Total Protein 8.3 (H) 6.1 - 8.0 gm/dL [facility] Albumin 3.6 3.2 - 5.2 gm/dL [facility] AST 12 0 - 39 unit/L [facility] ALT 11 0 - 55 unit/L [facility] Alk Phos 114 40 - 120 unit/L [facility] Total Bilirubin 0.5 0.2 - 1.3 mg/dL [facility] Bili, Direct 0.2 0.0 - 0.3 mg/dL [facility] Estimated GFR 30 (L) >=60 [facility] Comment: This estimated [...] the following links into your internet browser. [email or web address] Specimen Anatomical Collection Method Collection Time Receive d Time (Source) Location / / Volume Laterality Blood specimen 08/06/2016 7:41 AM 017 7:44 (specimen) EST AM EST Resulting Agency Comment Spec In Lab Alejo Garnett MD CHEMISTRY ORDERABLES Performing Organization Address City/State/[place] [address] Cholesterol, total (08/06/2016 7:41 AM EST) Patholo gist Method Time Signature Chol, Total 90 <=239 [place] mg/dL [facility] Lipid See Note [place] Interpretation [facility] Comment: Lipid management should be guided by a p atient? s ASCVD risk, goals and preferences. ACC/AHA Guidelines recommend high intens ity statin if clinical ASCVD or LDL greater than or equal to 190 mg/dL. http://circ.ahajournals.org/content/felix y/.cir.4593352419.43688.7a Adults aged 40-75 with LDL 70-189 mg/dL should have their 10 year ASCVD risk estimated with the ACC/AHA ASCVD risk es timator http://tools.acc.org/XELUQ-Wrdt-Uhqdmzye r/ Statin should be discussed if risk [...] Organization Address City/State/[place] [address] (ABNORMAL) Uric acid (08/06/2016 7:41 AM EST) P athologist Signature Uric Acid 12.1 (H) 3.5 - 8.5 [facility] mg/dL [facility] Specimen Anatomical Collection Method Collection Time Receive d Time (Source) Location / / Volume Laterality Blood specimen 08/06/2016 7:41 AM 017 7:44 (specimen) EST AM EST Resulting Agency Comment Spec In Lab Alejo Garnett MD CHEMISTRY ORDERABLES Performing Organization Address City/[facility]/[place] [address] Tacrolimus level (08/06/2016 7:41 AM EST) P athologist Signature Tacrolimus Lvl 5.5 ng/mL [facility] Comment: Trough therapeutic: ??5-15 ng/mL Performed by ultra-performance liquid ch romatography tandem mass spectrometry (UPLCMS/MS). Specimen Anatomical Collection Method Collection Time Receive d Time (Source) Location / / Volume Laterality Blood specimen 08/06/2016 7:41 AM 017 (specimen) EST 10:15 AM EST Resulting Agency Comment Spec In Lab Alejo Garnett MD CHEMISTRY ORDERABLES Performing Organization Address City/[facility] [place] [place] [address] (ABNORMAL) Reticulocyte Count (08/06/2016 7:41 AM EST) [facility] Method Time Signature Retic Ct % 2.8 (H) 0.7 - 2.6 [facility] % [facility] LABORATORY Retic Ct Abs 0.110 0.030 - [facility] 0.120 [facility] x10(6)/[facility] L LABORATORY Immature Retic% 15.7 (H) 0.0 - [facility] 15.6 % [facility] Reticulated Hgb 33.2 31.3 - [facility] 40.[address] [facility] Specimen Anatomical Collection Method Collection Time Receive d Time (Source) Location / / Volume Laterality Blood specimen 08/06/2016 7:41 AM 017 7:44 (specimen) EST AM EST Resulting Agency Comment Spec In Lab Alejo Garnett MD HEMATOLOGY ORDERABLES Performing Organization Address City/[facility]/[place] [address] (ABNORMAL) Urinalysis with reflex Culture (08/06/2016 7:38 AM EST) [facility] Method Time Signature Glucose UA 50 (A) Negative [place] [facility]I mg/dL [facility] Protein UA 30 (A) Negative [facility] mg/dL [facility] Bilirubin UA Negative Negative [facility] mg/dL [facility] Comment: Clinical correlation required for positi ve Urine Bilirubin results as false positive may occur with some drugs and d rug related products. If a false positive is suspected a serum total bili reyna should be considered if clinically indicated. Urobilinogen UA Normal Normal mg/dL [facility] pH UA 6.0 5.0 - 8.0 [facility] Blood UA Negative Negative mg/dL [facility] Ketones UA Negative Negative mg/dL [facility] Nitrite UA Negative Negative [facility] Leukocytes UA Negative Negative [facility] LABORATORY Appearance UA Clear Clear [facility] Spec [place] UA 1.013 1.002 - 1.030 [facility] Color UA Yellow Yellow [facility] RBC UA 1 0 - 3 /HPF [facility] WBC UA 2 0 - 3 /HPF [facility] Squam Epith UA 1 <=4 /HPF [facility] Hyaline Cast UA 12 (H) 0 - 2 /LPF [facility] Culture Reflexed No [facility] Specimen (Source) Anatomical Collection Method Collection Time Re ceived Time Location / / Volume Laterality Urine specimen 08/06/2016 7:38 08/06/2016 7:44 obtained by clean AM EST AM EST catch procedure (specimen) Resulting Agency Comment Spec In Lab Alejo Garnett MD URINE ORDERABLES Performing Organization Address City/State/[place] [address] (ABNORMAL) Protein/Creatinine Ratio, urine (08/06/2016 7:38 AM EST) P athologist Signature U Creatinine 107 mg/dL [facility] U Protein Ran 18 (H) 0 - 12 [facility] mg/dL [facility] Prot/Cre Ratio 0.2 ratio [facility] Specimen Anatomical Collection Method Collection Time Receive d Time (Source) Location / / Volume Laterality Urine specimen 08/06/2016 7:38 AM 017 7:45 (specimen) EST AM EST Resulting Agency Comment Spec In Lab Alejo Garnett MD URINE ORDERABLES Performing Organization Address City/State/[place] [address] documented in this encounter Visit Diagnoses Diagnosis Kidney replaced by transplant documented in this encounter Care Teams Hvac Technician Relationship Specialty Start Date End Date Violetta Sanford MD PCP - General 04/02/14 [address] [place] [address] documented as of this encounter
--- OUTSIDE RECORDS SUMMARY | 2022-05-24 10:54 | XMS_ITS | Encounter Summary ---
:1955 Author Organization [facility] [place] [address] Care Team Providers Name Role Phone Violetta Sanford MD Primary Care Provider Reason for Visit Reason Onset Date Comments Medication Refill 09/15/2016 Encounter Details Date Type Department Care Team Description 09/15/2016 Refill [place]rology [place] [facility] Jesús Sarmiento Jr., MD [facility] [place] [address] [place] [phone] (Wo rk) Social History Tobacco Use Types [...] Visit Otolaryngology Ricardo Panda PA [facility] Dr [place], [place] [address] (Wo rk) 06/02/2022 Infusion Hematology and Oncology 06/16/2022 Infusion Hematology and Oncology 06/21/2022 Office Visit Neurology Tyler Rojas MD [facility] er Neurology [place], [place] [phone] (Wo rk) 06/30/2022 Infusion Hematology and Oncology 07/14/2022 Infusion Hematology and Oncology 07/28/2022 Infusion Hematology and Oncology 08/11/2022 Infusion Hematology and Oncology 11/04/2022 Office Visit Rheumatology Dante Freedman PA [facility] RHEUMATOLOGY [place], [place] 0375 (Wo rk) documented as of this encounter Visit Diagnoses Not on filedocumented in this encounter Care Teams Forest Manager Relationship Specialty Start Date End Date Violetta Sanford MD PCP - General 04/02/14 [address] [place] [address] documented as of this encounter
--- OUTSIDE RECORDS SUMMARY | 2022-05-24 10:54 | XMS_ITS | Encounter Summary ---
:1955 Author Organization [facility] [address] Care Team Providers Name Role Phone Violetta Sanford MD Primary Care Provider Reason for Visit Reason Comments Dermatitis Encounter Details Date Type Department Care Team Description 03/10/2015 Office Visit Dermatology at [facility], DR CRISTIAN cote dermatitis [address] [facility] DR J CARLOS [place] [address] (Primary Dx) [address] [place] [address] Social History Tobacco Use Types Packs/Day Years [...] documented as of this encounter Progress Notes Skylar Love LPN - 03/10/2015 10:56 AM EDT Chief Complaint: Rash History of Present Illness Leroy Torres is a 59 y.o. male. Complains of a erythematous, blistering, severely pruritic rash on the right thigh and leg stump that started about 10 days ago. Started after using a new thick rubber stocking for the right leg stump.The rash was present where the stocking was placed. He reports washing the new stocking prior to use. No new topicals. Sweating excessively in the stocking but has been using a stocking without similarproblems for years. Patient has treated with OTC Monostat and vaseline topicals. Switched to old stocking and now rash has almost completely resolved. Never been biopsied. Patient declined a full skin exam at this time. Skin Cancer History No personal history of skin cancer. No family history of skin cancer. Allergies Allergies Allergen Reactions ??? Penicillins Anaphylaxis ??? Iftikhar Inhibitors Cough ??? Clindamycin Hcl Rash ??? Allergenic Extracts Birch and Nut Trees, cats, dust, pollen Medications PROGRAF 1 mg Capsule; CELLCEPT 250 mg Capsule; insulin detemir (LEVEMIR FLEXTOUCH) Insulin Pen; gabapentin (NEURONTIN) 300 mg Capsule; propranolol (INDERAL) 80 mg Tablet; insulin aspart (NOVOLOG FLEXPEN) Insulin Pen; Insulin [place], Disposable, (BD INSULIN PEN NEEDLE UF SHORT) 31 X 5/16 Needle; flut icasone (FLONASE) 50 mcg/actuation nasal spray; MULTIVITS-MINERALS/FA/LYCOPENE (ONE-A-DAY MEN'S MULTIVITAMIN ORAL) glucagon, human recombinant, 1 mg/mL injection; aspirin 81 mg EC tablet; CHOLECALCIFEROL, VITAMIN D3, (VITAMIN D-3 ORAL); folic acid (FOLVITE) 1 mg tablet; simvastatin (ZOCOR) 10 mg tablet; montelukast(SINGULAIR) 10 mg tablet; omeprazole (PRILOSEC) 40 mg capsule Reconciled as above Review of Systems Significant for no fevers, chills, night sweats, or fatigue and no other pertinent and acute changesin constitutional, other skin, HEENT, gastrointestinal, respiratory, cardiovascular, genitourinary, lymphatic, musculoskeletal, endocrine, neurologic, psychiatric, allergy/immunology systems upon specific queries. Past Medical History has no past medical history on file. 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 Family Medical History No family history on file. Social History Tobacco: Quit in 1989 Alcohol: Yes Examination Standby: Purnima Eli, Clinical Scribe Pain 0/10. Mood is appropriate. Well developed, well-nourished in no apparent distress, alert and oriented to time, person, place and situation. Skin Type: I. A focused examination of face, ears, nose, eyelids, neck, upper extremities, right thigh and leg significant for: - poorly demarcated pink patches on right thigh and leg with linear demarcation where the stocking stops. Assessment and Plan Contact Dermatitis Ddx: ICD favored over ACD. At this time, less likely bullous tinea or bullous impetigo. Resolving with use of old stocking. No vesicles or bullae. No honey crust c/w impetigo. Counseled: contact dermatitis - ICD v ACD Rewash rubber contact of new stocking and ensure no residual soap. Vaseline or other moisturizer to area Air dry area Start Triamcinolone 0.1% cream bid prn itching rash. Counseled: risks of topical steroids, includingbut not limited to atrophy, dyspigmentation. If dermatitis recurs, consider biopsy. Follow-up: Patient to contact clinic prn for flaring of dermatitis and will make effort to get patient into clinic within 2 business days for re-evaluation and possible biopsy. Clinic information provided to patient. I am documenting this encounter acting as the scribe for and in the presence of Dr. Mcginnis: SKYLAR LOVE LPN and Purnima Eli, Clinical Scribe Iperformed the above scribed service and agree with the accuracy of the documentation in this encounter. Jose Mcginnis MD [facility] Section of Dermatology [facility] documented in this encounter Plan of Treatment Upcoming Encounters Date Type Specialty Care Team Description 05/26/2022 Office Visit Otolaryngology Ricardo Panda PA [facility] [address], [place] [address] (Wo rk) 06/02/2022 Infusion Hematology and Oncology 06/16/2022 Infusion Hematology and Oncology 06/21/2022 Office Visit Neurology Tyler Rojas MD [facility] er Neurology [place], [place] [phone] (Wo rk) 06/30/2022 Infusion Hematology and Oncology 07/14/2022 Infusion Hematology and Oncology 07/28/2022 Infusion Hematology and Oncology 08/11/2022 Infusion Hematology and Oncology 11/04/2022 Office Visit Rheumatology Dante Freedman PA [facility] RHEUMATOLOGY [place], [place] [address] (Wo rk) documented as of this encounter Visit Diagnoses Diagnosis Contact dermatitis - Primary Contact dermatitis and other eczema, due to unspecified cause documented in this encounter Care Teams Standard Machine Stitcher Relationship Specialty Start Date End Date Violetta Sanford MD PCP - General 04/02/14 [facility] [address] [place] [address] documented as of this encounter
--- OUTSIDE RECORDS SUMMARY | 2022-05-24 10:54 | XMS_ITS | Encounter Summary ---
:1955 Author Organization [facility] Address [facility] [place] [address] Care Team Providers Name Role Phone Violetta Sanford MD Primary Care Provider Encounter Details Date Type Department Care Team Description 05/07/2015 Office Visit Neurology at [facility] Angel Boyd, Type 2 diabetes [facility] MD mellitus with diabetic Drive [facility] [place] [address] NEUROLOGY DEPT. [phone] [place], [place] [address] Social History Tobacco Use Types [...] Sign Reading Time Taken Comments Blood Pressure 150/67 05/07/2015 11:03 AM EDT Pulse 63 05/07/2015 11:03 AM EDT Temperature - - Respiratory Rate - - Oxygen Saturation - - Inhaled Oxygen Concentration - - Weight 149.7 kg (330 lb) 05/07/2015 11:03 AM EDT Height 194.3 cm (6' 4.5) 05/07/2015 11:03 AM EDT Body Mass Index 39.65 05/07/2015 11:03 AM EDT documented in this encounter Progress Notes Angel Boyd MD - 05/07/2015 12:17 PM EDT I saw Leroy Torres today in followup. He was accompanied by his . They were in March and had a samia driving tour around [place] and [facility] following that. He is working hard at trying to control his diabetes but occasionally he has lapses. His hemoglobin A1-C was far from ideal when it was last checked, but he is redoubling his efforts, trying to lose weight and watching his diet. Many of the ravages of diabetes, of course, he still lives with including being status post renal transplant, status post bilateral BKA and neuropathy with tremor. Neuropathy pain and tremor are both helped by the Neurontin which he takes, and we will renew it. I could find no evidence of side effects on my review. Fifteen minutes of our 25-minute visit were in supportive counseling and therapeutic planning. I will see him back in followup. documented in this encounter Plan of Treatment Upcoming Encounters Date Type Specialty Care Team Description 05/26/2022 Office Visit Otolaryngology Ricardo Panda PA [facility] [address] [place] [address] (Wo gregg) 06/02/2022 Infusion Hematology and Oncology 06/16/2022 Infusion Hematology and Oncology 06/21/2022 Office Visit Neurology Tyler Rojas MD 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
--- OUTSIDE RECORDS SUMMARY | 2022-05-24 10:54 | XMS_ITS | Encounter Summary ---
:1955 Author Organization [facility] [place] [address] Care Team Providers Name Role Phone Violetta Sanford MD Primary Care Provider Encounter Details Date Type Department Care Team Description 05/07/2015 Hospital Encounter Non-Invasive Violetta Sanford, Insulin dependent diabetes mellitus; Cardiology Lab Sylvia HAWK History of kidney transplant [id number] [place] [address] [phone] (Work) [phone] Social History Tobacco Use Types Packs/Day Years [...] Sign Reading Time Taken Comments Blood Pressure 114/47 05/07/2015 2:38 PM EDT Pulse 59 05/07/2015 2:38 PM EDT Temperature - - Respiratory Rate 20 05/07/2015 2:38 PM EDT Oxygen Saturation 91% 05/07/2015 2:38 PM EDT Inhaled Oxygen Concentration - - Weight 149.7 kg (330 lb) 05/07/2015 2:38 PM EDT Height 195.6 cm (6' 5) 05/07/2015 2:38 PM EDT Body Mass Index 39.13 05/07/2015 2:38 PM EDT documented in this encounter Medications at Time of Discharge Medication Sig Dispensed Refills Start Date End Date BD INSULIN PEN NEEDLE 0 03/28/2015 UF ORIG 29 gauge x 1/2 Needle aspirin 81 mg EC Take 81 mg by mouth 0 tablet daily. atorvastatin Take 20 mg by mouth 1 04/13/201501/2015 (LIPITOR) 20 mg daily. Tablet cholecalciferol, Take 2,000 Units by 0 05/05/2015 [...] Code: 250.61 mellitus with neurological manifestations, uncontrolled(250.62) insulin aspart Inject 30-40 Units 75 mL 11 04/19/2014 (NOVOLOG FLEXPEN) subcutaneously 4 times Insulin Pen daily. Form faxed to [facility] for new Rx Insulin [place], Form faxed for new Rx 450 each [...] Otolaryngology Ricardo Panda PA [facility] [address] [place] [address] (Wo rk) 06/02/2022 Infusion Hematology and Oncology 06/16/2022 Infusion Hematology and Oncology 06/21/2022 Office Visit Neurology Tyler Rojas MD [facility] Neurology [place], [place] [phone] (Wo rk) 06/30/2022 Infusion Hematology and Oncology 07/14/2022 Infusion Hematology and Oncology 07/28/2022 Infusion Hematology and Oncology 08/11/2022 Infusion Hematology and Oncology 11/04/2022 Office Visit Rheumatology Dante Freedman PA [facility]HEUMAT[facility] [place], [place] [address] (Wo rk) documented as of this encounter Procedures Procedure Name Priority Date/Time Associated Comments Diagnosis STRESS ECHOCARDIOGRAM W Routine 05/07/2015 3:49 PM Insulin dep endent Results for this CONTRAST LMTD SPEC EDT diabetes terri itus procedure are in DOPP,COLOR DOPP History of kidney the res ults transplant section. documented in this encounter Results STRESS ECHOCARDIOGRAM W CONTRAST LMTD SPEC DOPP,COLOR DOPP (05/07/2015 3:49 PM EDT) P athologist Signature EF 65 HEARTLAB SYSTEM Anatomical Region Laterality Modality Other Specimen (Source) Anatomical Location Collection Method / Collectio n Time Received Time / Laterality Volume 05/07/2015 Narrative 05/07/2015 4:14 PM EDT Procedure: ?Stress Echocardiogram Patient: ?ASIM Lui ?(Age): 1955(59y) Med Rec#: ? [id number] ?Sex: ?M ? Site Loc: ? [facility] – [place] ?Ht / Wt: ??195.6(cm)/149.6 Pt. Loc: ?Echo Lab ?BSA: ?2.77 Study Date: ?? 05/07/2015 ?Pt. Type: Tape: ? Referring: Violetta Sanford Reading: Angel Del Real ([id number]) Diagnosis: *ICD-10-PCS Kidney transplant status (Z 94.0) CPT Codes: *Stress Echo (55320) *Color Doppler (98142) *Doppler LTD (36603) *ECG Interpretation (55019) *Definity (03925UM) Stage ? BP ?HR ? Rest ?114/47 ?60 ? Low dose ?150/55 ?58 ? Peak ?210/61 ?87 ? Recovery ?163/66 ?84 ? SUMMARY: 1. REST: The left ventricular chamber si ze is normal. Mild concentric left ventricular hypertrophy is observed . There are no left ventricular segmental wall motion abnormalities. The re is normal global left ventricular systolic function. ??Ejectio n fraction is estimated to be 70%. The right ventricle is probably nor mal in size. Right ventricular global systolic function is probably nor mal. Other echo and stress findings as noted in report. 2. STRESS: The patient received incremen lee doses of Dobutamine to a peak of 40 mcg/kg/min plus a total of 1 mg atropine, achieving a peak heart rate of only 87 bpm (55% maximum p redicted) and peak BP of 210/61 mmHg. With stress he was asymptomatic, h emodynamically stable, had occasional PVCs and developed no signifi cant ST-TW changes. With stress all left ventricular segments demonstrat ed improved systolic function. 3. IMPRESSION: There was no evidence of ischemia at this non-diagnostic level of stress. The test is indertermin ate for evidence of flow limiting coronary disease. Suggest a per fusion imaging study in the future. FINDINGS: Rest Study Quality ?Technically limited Left Ventricle ?The left ventricular chamber size is normal. ?Mild concentric left ventricular h ypertrophy is observed. ?There is no evidence of LVOT obstr uction. ?There is normal global left ventri cular systolic function. ??Ejection fraction is estimated to be 70%. ?There are no left ventricular segm ental wall motion abnormalities. ?The left ventricular diastolic rafael ling pattern is consistent with impaired LV relaxation. Right Ventricle ?The right ventricle is probably no rmal in size. ?Right ventricular global systolic function is probably normal. ?The estimated pulmonary artery sys tolic pressure is 34 mmHg. ?The estimated right atrial pressur e is 3 mmHg. Aortic Valve ?The aortic valve is tricuspid. ?Systolic excursion of the aortic v alve is normal. ?There is aortic annular calcificat ion. ?There is no evidence of aortic tri ve stenosis. ?There is no evidence of aortic reg urgitation. Mitral Valve ?The mitral valve is probably gamal l. ?There is no evidence of mitral reg urgitation. Tricuspid Valve ?The tricuspid valve is probably no rmal. ?There is trace tricuspid regurgita tion present. Pericardium ?There is no pericardial effusion. Aorta ?The aortic root is normal in size. ?The ascending aorta is normal in s ize. Stress ?EKG: normal sinus rhythm. ?The patient's oxygen saturation wa s 94% ?The patient is taking a beta block er. propranolol no hold Misc ?Other echo and stress findings as noted in report. ?Definity contrast (one 1.5 ml vial )was used to enhance endocardial definition. Excess contrast was discarde d. ?Stress echo, limited spectral Dopp ler, color Doppler and ECG interpretation performed. FINDINGS: Low dose Stress ?EKG: normal sinus rhythm. ?EKG: Premature ventricular contrac tions noted. FINDINGS: Peak Stress ?The peak dose of Dobutamine infuse d was 40 ug/kg/min. ?The patient was administered 1.0 m g of Atropine. ?The patient performed hand squeeze s to accelerate heart rate. ?The patient did not express feelin gs of chest discomfort. ?The blood pressure response was hy pertensive. ?There were occasional atrial gumaro ture contractions. ?There were no significant ST segme nt changes. ?The echocardiographic response trina ws no evidence of ischemia, however at insufficient stress. ?EKG: normal sinus rhythm. ?EKG: Premature atrial contractions noted. ?The patient's oxygen saturation wa s 94% Misc ?Definity contrast was given to enh ance Doppler signal. ?The patient is alert and oriented x3. ?The procedure was explained to the patient and the patient understands the procedure, ?A 20 gauge heplock was placed. ?An IV was placed in the patient's right arm. ?The IV site is dry and intact with no hematoma. ?Normal saline was given. 250cc's N S infused FINDINGS: Recovery Stress ?EKG: normal sinus rhythm. ?EKG: Premature ventricular contrac tions noted. Chambers 2D ?Value ?Units (Range) ? IVSd (2D) ? 1.3 ?cm ? LVPWd (2D) ?1.2 ?cm ? IVS:LVPW ratio (2D) 1.1 ?ratio ? LVIDd (2D) ?5.5 ?cm ? LVIDs (2D) ?3.3 ?cm ? LV FS (2D) ?40 ? % ? EF Teichholz (2D) ?? 70 ? % ? Ao root diameter (2D3.1 ?cm (2.1 - 3.6) ? Ascending Ao ?3.1 ?cm (2 - 3.5) ? Volumes/Mass ?Value ?Units (Range) ? LV mass (2D) ?291.9 ?g ? Diastolic/Systolic Function ?Value ?Units (Range) ? MV E-wave Vmax ?0.7 ?m/sec ? MV deceleration [id number] ?msec ? MV A-wave Vmax ?0.6 ?m/sec ? MV E:A ratio ?1.1 ?ratio ? LV septal e' Vmax ?? 0.1 ?m/sec ? LV lateral e' Vmax ??0.1 ?m/sec ? LV E:e' septal ratio9.5 ?ratio ? LV E:e' lateral rati5.8 ?ratio ? Tricuspid Valve ?Value ?Units (Range) ? TAPSE ? 20 ? cm ? TR Vmax ? 2.8 ?m/sec ? TR peak gradient ?30.9 ? mmHg ? RAP ? 3 ?mmHg ? RVSP ?34 ? mmHg ? Measurement Trending Name ? 05/07/2015 ? LVIDd (2D) ? 5. 45 LVIDs (2D) ? 3. 28 Wall Motion: Segment Name ?Rest ?Peak ? Base-Anteroseptal ?? Normal ?Normal ? Base-Anterior ? Normal ?Normal ? Base-Anterolateral ??Normal ?Normal ? Base-Posterolateral Normal ?Normal ? Base-Inferior ? Normal ?Normal ? Base-Inferoseptal ?? Normal ?Normal ? Mid-Anteroseptal ?Normal ?Normal ? Mid-Anterior ?Normal ?Normal ? Mid-Anterolateral ?? Normal ?Normal ? Mid-Posterolateral ??Normal ?Normal ? Mid-Inferior ?Normal ?Normal ? Mid-Inferoseptal ?Normal ?Normal ? [place]-Septal ? Normal ?Normal ? [place]-Anterior ? Normal ?Normal ? [place]-Lateral ?Normal ?Normal ? [place]-Inferior ? Normal ?Normal ? [place]-Tip ?Normal ?Normal ? This report has been electronically sign ed by: _ Angel Del Real MD ? 05/07/2015 16 :13:34 Images reviewed and interpretation puja laguerre [facility] Cardiac Ultrasound Laboratory Procedure Note Angel Del Real MD - 05/07/2015Formatt ing of this note might be different from the original. Procedure: Stress Echocardiogram Patient: ASIM Lui DOB(Age): [birth year](59y) Med Rec#: [id number] Sex: M Site Loc: [facility] – [place] Ht / Wt: 195.6(cm)/149.6 Pt. Loc: Echo Lab BSA: 2.77 Study Date: 05/07/2015 Pt. Type: Tape: Referring: Violetta Sanford Reading: Angel Del Real ([id number]) Diagnosis: *ICD-10-PCS Kidney transplant status (Z 94.0) CPT Codes: *Stress Echo (91371) *Color Doppler (39840) *Doppler LTD (16754) *ECG Interpretation (25753) *Definity ([id number]) Stage BP HR Rest 114/47 60 Low dose 150/55 58 Peak 210/61 87 Recovery 163/66 84 SUMMARY: 1. REST: The left ventricular chamber si ze is normal. Mild concentric left ventricular hypertrophy is observed . There are no left ventricular segmental wall motion abnormalities. The re is normal global left ventricular systolic function. Ejection fraction is estimated to be 70%. The right ventricle is probably nor mal in size. Right ventricular global systolic function is probably nor mal. Other echo and stress findings as noted in report. 2. STRESS: The patient received incremen lee doses of Dobutamine to a peak of 40 mcg/kg/min plus a total of 1 mg atropine, achieving a peak heart rate of only 87 bpm (55% maximum p redicted) and peak BP of 210/61 mmHg. With stress he was asymptomatic, h emodynamically stable, had occasional PVCs and developed no signifi cant ST-TW changes. With stress all left ventricular segments demonstrat ed improved systolic function. 3. IMPRESSION: There was no evidence of ischemia at this non-diagnostic level of stress. The test is indertermin ate for evidence of flow limiting coronary disease. Suggest a per fusion imaging study in the future. FINDINGS: Rest Study Quality Technically limited Left Ventricle The left ventricular chamber size is no rmal. Mild concentric left ventricular hypert rophy is observed. There is no evidence of LVOT obstructio n. There is normal global left ventricular systolic function. Ejection fraction is estimated to be 70%. There are no left ventricular segmental wall motion abnormalities. The left ventricular diastolic filling pattern is consistent with impaired LV relaxation. Right Ventricle The right ventricle is probably normal in size. Right ventricular global systolic funct ion is probably normal. The estimated pulmonary artery systolic pressure is 34 mmHg. The estimated right atrial pressure is 3 mmHg. Aortic Valve The aortic valve is tricuspid. Systolic excursion of the aortic valve is normal. There is aortic annular calcification. There is no evidence of aortic valve st enosis. There is no evidence of aortic regurgit ation. Mitral Valve The mitral valve is probably normal. There is no evidence of mitral regurgit ation. Tricuspid Valve The tricuspid valve is probably normal. There is trace tricuspid regurgitation present. Pericardium There is no pericardial effusion. Aorta The aortic root is normal in size. The ascending aorta is normal in size. Stress EKG: normal sinus rhythm. The patient's oxygen saturation was 94% The patient is taking a beta lucrecia. p ropranolol no hold Misc Other echo and stress findings as noted in report. Definity contrast (one 1.5 ml vial)was used to enhance endocardial definition. Excess contrast was discarde d. Stress echo, limited spectral Doppler, color Doppler and ECG interpretation performed. FINDINGS: Low dose Stress EKG: normal sinus rhythm. EKG: Premature ventricular contractions noted. FINDINGS: Peak Stress The peak dose of Dobutamine infused was 40 ug/kg/min. The patient was administered 1.0 mg of Atropine. The patient performed hand squeezes to accelerate heart rate. The patient did not express feelings of chest discomfort. The blood pressure response was hyperte nsive. There were occasional atrial premature contractions. There were no significant ST segment ch anges. The echocardiographic response shows no evidence of ischemia, however at insufficient stress. EKG: normal sinus rhythm. EKG: Premature atrial contractions note d. The patient's oxygen saturation was 94% Misc Definity contrast was given to enhance Doppler signal. The patient is alert and oriented x3. The procedure was explained to the guerda ent and the patient understands the procedure, A 20 gauge heplock was placed. An IV was placed in the patient's right arm. The IV site is dry and intact with no h ematoma. Normal saline was given. 250cc's NS inf used FINDINGS: Recovery Stress EKG: normal sinus rhythm. EKG: Premature ventricular contractions noted. Chambers 2D Value Units (Range) IVSd (2D) 1.3 cm LVPWd (2D) 1.2 cm IVS:LVPW ratio (2D) 1.1 ratio LVIDd (2D) 5.5 cm LVIDs (2D) 3.3 cm LV FS (2D) 40 % EF Teichholz (2D) 70 % Ao root diameter (2D3.1 cm (2.1 - 3.6) Ascending Ao 3.1 cm (2 - 3.5) Volumes/Mass Value Units (Range) LV mass (2D) 291.9 g Diastolic/Systolic Function Value Units (Range) MV E-wave Vmax 0.7 m/sec MV deceleration [id number] msec MV A-wave Vmax 0.6 m/sec MV E:A ratio 1.1 ratio LV septal e' Vmax 0.1 m/sec LV lateral e' Vmax 0.1 m/sec LV E:e' septal ratio9.5 ratio LV E:e' lateral rati5.8 ratio Tricuspid Valve Value Units (Range) TAPSE 20 cm TR Vmax 2.8 m/sec TR peak gradient 30.9 mmHg RAP 3 mmHg RVSP 34 mmHg Measurement Trending Name 05/07/2015 LVIDd (2D) 5.45 LVIDs (2D) 3.28 Wall Motion: Segment Name Rest Peak Base-Anteroseptal Normal Normal Base-Anterior Normal Normal Base-Anterolateral Normal Normal Base-Posterolateral Normal Normal Base-Inferior Normal Normal Base-Inferoseptal Normal Normal Mid-Anteroseptal Normal Normal Mid-Anterior Normal Normal Mid-Anterolateral Normal Normal Mid-Posterolateral Normal Normal Mid-Inferior Normal Normal Mid-Inferoseptal Normal Normal [place]-Septal Normal Normal [place]-Anterior Normal Normal [place]-Lateral Normal Normal [place]-Inferior Normal Normal [place]-Tip Normal Normal This report has been electronically sign ed by: _ Angel Del Real MD 05/07/2015 16:13:34 Images reviewed and interpretation darrellif iereny [facility] Cardiac Ultrasound Laboratory Violetta Sanford MD ECHO ORDERABLES documented in this encounter Visit Diagnoses Diagnosis Insulin dependent diabetes mellitus Type II or unspecified type diabetes fredo litus without mention of complication, not stated as uncontrolled History of kidney transplant Kidney replaced by transplant documented in this encounter Administered Medications Inactive Administered Medications - up to 3 most recent administrations Medication Order MAR Action Action Date Dose Rate Site atropine injection 1 mg Given 05/07/2015 3:24 PM EDT 1 mg 1 mg, Intravenous, ONCE, 1 dose, On Tue05/07/15 at 1600, Echo Lab (Intra-Procedure), Routine DOBUTamine 500 mg in sodium Given 05/07/2015 3:11 PM EDT 5.9 88 mg/min 179.6 mL/hr chloride 0.9% 250 mL (ECHO LAB) 40 mcg/kg/min ? 149.7 kg (179.64 mL/hr, rounded to 179.6 mL/hr), Intravenous, ONCE, 1 dose, On Tue05/07/15 at 1600, Echo Lab (Intra-Procedure) perflutren lipid microspheres (DEFINITY) Given 05/07/2015 3:50 P M EDT 0.5 mLs injection 0.5 mL 0.5 mL, Intravenous, ONCE PRN, 1 dose, Starting on Tue05/07/15 at 1549, Until 10/14/15 at 1550, Other, Routine documented in this encounter Care Teams General Supervisor Relationship Specialty Start Date End Date Violetta Sanford MD PCP - General 04/02/14 [address] [facility] [address] [place] [address] documented as of this encounter
--- OUTSIDE RECORDS SUMMARY | 2022-05-24 10:54 | XMS_ITS | Encounter Summary ---
:1955 Author Organization [place] [address] Care Team Providers Name Role Phone Violetta Sanford MD Primary Care Provider Reason for Visit Reason Comments Kidney Transplant Follow-up Immunotherapy Encounter Details Date Type Department Care Team Description 12/24/2015 Office Visit Solid Organ Alejo Garnett Kidney re placed by transplant; Transplant at [facility] [place] MD Thang PATIENT NOT SEEN [facility] [address] [place] [id number] [place] [address] [phone] Social History Tobacco Use Types Packs/Day Years [...] documented as of this encounter Progress Notes Alejo Garnett MD - 12/24/2015 11:07 AM EDT This patient was not seen in this encounter. documented in this encounter Plan of Treatment Upcoming Encounters Date Type Specialty Care Team Description 05/26/2022 Office Visit Otolaryngology Ricardo Panda PA [facility] [address] [place], [place] [address] (Wo rk) 06/02/2022 Infusion Hematology and Oncology 06/16/2022 Infusion Hematology and Oncology 06/21/2022 Office Visit Neurology Tyler Rojas MD [facility] Neurology [place], [place] [phone] (Wo rk) 06/30/2022 Infusion Hematology and Oncology 07/14/2022 Infusion Hematology and Oncology 07/28/2022 Infusion Hematology and Oncology 08/11/2022 Infusion Hematology and Oncology 11/04/2022 Office Visit Rheumatology Dante Freedman PA [facility] RHEUMATOLOGY [place], [place] [address] (Wo rk) documented as of this encounter Results (ABNORMAL) Comprehensive metabolic panel (non-fasting) (01/05/2016 10:05 AM EDT) athologist Signature Glucose Lvl 328 (H) 65 - 199 [facility] mg/dL [facility] Comment: Diabetes: >=200 mg/dL plus symp toms BUN 31 (H) 10 - 20 mg/dL [facility] Creatinine 1.81 (H) 0.80 - 1.50 mg/dL [facility] Comment: Please note that the pediatric reference intervals supplied above were not validated at [facility]. Results from pediatri c patients should be interpreted in conjunction to the patient's age, height and muscle mass. Sodium 135 135 - 145 mmol/L [facility] Potassium 5.0 3.5 - 5.0 mmol/L [facility] Comment: Please note: ??Patients with WBC >100,00 0 may have falsely elevated Potassium levels. ??For accurate Potassium quantif ication in these patients send serum separator tube (gold top) for subsequent determinations. ??Contact the Clinical Chemistry Laboratory if there are any qu estions. Chloride 100 98 - 107 mmol/L [facility] CO2 21 (L) 22 - 31 mmol/L [facility] Anion Gap 14 5 - 15 mmol/L [facility] Calcium 9.5 8.5 - 10.5 mg/dL [facility] Total Protein 8.2 (H) 6.1 - 8.0 gm/dL [facility] Albumin 3.6 3.2 - 5.2 gm/dL [facility] AST 14 0 - 39 unit/L [facility] ALT 27 0 - 55 unit/L [facility] Alk Phos 131 (H) 40 - 120 unit/L [facility] Total Bilirubin 0.4 0.2 - 1.3 mg/dL [facility] Bili, Direct 0.1 0.0 - 0.3 mg/dL [facility] Estimated GFR 38 (L) >=60 [facility] Comment: This estimated GFR (eGFR) [...] the following links into your internet browser. [email or web address] Specimen Anatomical Collection Method Collection Time Receive d Time (Source) Location / / Volume Laterality Blood specimen 01/05/2016 10:05 6 (specimen) AM EDT 10:21 AM EDT Resulting Agency Comment Spec In Lab Alejo Garnett MD CHEMISTRY ORDERABLES Performing Organization Address City/State/[place] [address] (ABNORMAL) Magnesium (01/05/2016 10:05 AM EDT) P athologist Signature Magnesium 0.65 (L) 0.69 - 1.07 [facility] mmol/L [facility] Specimen Anatomical Collection Method Collection Time Receive d Time (Source) Location / / Volume Laterality Blood specimen 01/05/2016 10:05 6 (specimen) AM EDT 10:21 AM EDT Resulting Agency Comment Spec In Lab Alejo Garnett MD CHEMISTRY ORDERABLES Performing Organization Address City/State/ZIP Code Phon e Number [address] Phosphorus (01/05/2016 10:05 AM EDT) athologist Signature Phosphorus 3.3 2.5 - 4.5 [facility] Specimen Anatomical Collection Method Collection Time Receive d Time (Source) Location / / Volume Laterality Blood specimen 01/05/2016 10:05 6 (specimen) AM EDT 10:21 AM EDT Resulting Agency Comment Spec In Lab Alejo Garnett MD CHEMISTRY ORDERABLES Performing Organization Address City/State/ZIP Code Phon e Number [address] Uric acid (01/05/2016 10:05 AM EDT) athologist Signature Uric Acid 7.3 3.5 - 8.5 [facility] Specimen Anatomical Collection Method Collection Time Receive d Time (Source) Location / / Volume Laterality Blood specimen 01/05/2016 10:05 6 (specimen) AM EDT 10:21 AM EDT Resulting Agency Comment Spec In Lab Alejo Garnett MD CHEMISTRY ORDERABLES Performing Organization Address City/State/ZIP Code Phon e Number [address] Tacrolimus level (01/05/2016 10:05 AM EDT) P athologist Signature Tacrolimus Lvl 5.1 ng/mL [facility] Comment: Trough therapeutic: 5-15 ng/mL Specimen Anatomical Collection Method Collection Time Receive d Time (Source) Location / / Volume Laterality Blood specimen 01/05/2016 10:05 6 (specimen) AM EDT 11:42 AM EDT Resulting Agency Comment Spec In Lab Alejo Garnett MD CHEMISTRY ORDERABLES Performing Organization Address [facility] [place] [address] (ABNORMAL) Reticulocyte Count (01/05/2016 10:05 AM EDT) Patholo gist Method Time Signature Retic Ct % 3.0 (H) 0.5 - 2.4 [facility] Retic Ct Abs 0.130 (H) 0.027 - [facility] 0.095 [facility] x10(6)/[facility] L LABORATORY Immature Retic% 19.9 (H) 2.3 - [facility] 15.9 % [facility] Reticulated Hgb 32.9 28.5 - [facility] 38.9 pg [facility] Plat Immature % 1.0 0.0 - 7.4 [facility] Specimen Anatomical Collection Method Collection Time Receive d Time (Source) Location / / Volume Laterality Blood specimen 01/05/2016 10:05 6 (specimen) AM EDT 10:21 AM EDT Resulting Agency Comment Spec In Lab Alejo Garnett MD HEMATOLOGY ORDERABLES Performing Organization Address [facility] [place] [address] Cholesterol, total (01/05/2016 10:05 AM EDT) P athologist Signature Chol, Total 130 <=199 mg/dL [facility] Comment: Recommendations of the NCEP Adult Treatm ent Panel for the following risk cutoff thresholds for the [place] Stateless populatio n: Desirable: <200 mg/dL Borderline High: 200-239 mg/dL High: > or = 240 mg/dL Specimen Anatomical Collection Method Collection Time Receive d Time (Source) Location / / Volume Laterality Blood specimen 01/05/2016 10:05 6 (specimen) AM EDT 10:21 AM EDT Resulting Agency Comment Spec In Lab Alejo Garnett MD CHEMISTRY ORDERABLES Performing Organization Address City/State/[place] [address] documented in this encounter Visit Diagnoses Diagnosis Kidney replaced by transplant DH PATIENT NOT SEEN documented in this encounter Care Teams Production Helper Relationship Specialty Start Date End Date Violetta Sanford MD PCP - General 04/02/14 [address] [place] [address] documented as of this encounter
--- OUTSIDE RECORDS SUMMARY | 2022-05-24 10:54 | XMS_ITS | Encounter Summary ---
:1955 Author Organization [facility] [place] [address] Care Team Providers Name Role Phone Violetta Sanford MD Primary Care Provider Encounter Details Date Type Department Care Team Description 11/12/2015 Office Visit Neurology at [facility] [place] Angel Boyd, Tremor, essential; [facility] Type 2 diabetes mellitus with diabetic [place] [address] NEUROLOGY DEPT. [phone] [place], [place] [address] Social History Tobacco Use Types [...] Sign Reading Time Taken Comments Blood Pressure 137/59 11/12/2015 10:59 AM EDT Pulse 56 11/12/2015 10:59 AM EDT Temperature - - Respiratory Rate - - Oxygen Saturation - - Inhaled Oxygen Concentration - - Weight 154.2 kg (340 lb) 11/12/2015 10:59 AM EDT Height 194.3 cm (6' 4.5) 11/12/2015 10:59 AM EDT Body Mass Index 40.85 11/12/2015 10:59 AM EDT documented in this encounter Progress Notes Angel Boyd MD - 11/12/2015 12:42 PM EDT COPY: Violetta Sanford M.D. It is my pleasure to see Leroy Torres today in followup in the company of his . He has been doing pretty well overall. He is doing a careful job of managing his diabetes. 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 His tremor has gotten a little worse since I saw him last as well. We thought about raising the Inderal to treat the tremor, but his diastolic blood pressure is 59 and heart rate is 56, so I do not think we have much room to move there. He does have mild renal failure, but I think we could go up on his Neurontin safely. I wrote a prescription for that to take place. That is to day I eFaxed it to his pharmacy. The new dose will be 300 mg of Neurontin three capsules by mouth three times a daily. He will call if he has any difficulty. Otherwise, he will be scheduled for followup in six months. documented in this encounter Plan of Treatment Upcoming Encounters Date Type Specialty Care Team Description 05/26/2022 Office Visit Otolaryngology Ricardo Panda PA [facility] [address] [place] [address] (Oscar escobedo) 06/02/2022 Infusion Hematology and Oncology 06/16/2022 Infusion Hematology and Oncology 06/21/2022 Office Visit Neurology Tyler Rojas MD [facility] Dr [address] [place] [phone] (Oscar escobedo) 06/30/2022 Infusion Hematology and Oncology 07/14/2022 Infusion Hematology and Oncology 07/28/2022 Infusion Hematology and Oncology 08/11/2022 Infusion Hematology and Oncology 11/04/2022 Office Visit Rheumatology Dante Freedman PA [facility] RHEUMATOLOGY [place], [place] [address] (Wo rk) documented as of this encounter Visit Diagnoses Diagnosis Tremor, essential Essential and other specified forms of t remor Type 2 diabetes mellitus with diabetic n europathy Type II or unspecified type diabetes fredo litus with neurological manifestations, not stated as uncontrolled documented in this encounter Care Teams Tax Associate Relationship Specialty Start Date End Date Violetta Sanford MD PCP - General 04/02/14 [address] [place] [address] documented as of this encounter
--- OUTSIDE RECORDS SUMMARY | 2022-05-24 10:55 | XMS_ITS | Encounter Summary ---
:1955 Author Organization [facility] [place] [address] Care Team Providers Name Role Phone Violetta Sanford MD Primary Care Provider Reason for Visit Reason Onset Date Comments Medication Refill 04/19/2014 Encounter Details Date Type Department Care Team Description 04/19/2014 Refill Endocrinology at [facility] Donell Hernandez MD Diabetes mellitus; [facility] Type II or unspecified type diabetes mellitus with neurological manifestations, uncontrolled(250.62) [place] [address] ENDOCRINOLOGY [place] [facility] [employer], [place] [address] (Wo rk) Social History Tobacco [...] Otolaryngology Ricardo Panda PA [facility] [place], [place] [address] (Wo rk) 06/02/2022 Infusion Hematology and Oncology 06/16/2022 Infusion Hematology and Oncology 06/21/2022 Office Visit Neurology Tyler Rojas MD [facility] er Neurology [place], [place] [phone] (Wo rk) 06/30/2022 Infusion Hematology and Oncology 07/14/2022 Infusion Hematology and Oncology 07/28/2022 Infusion Hematology and Oncology 08/11/2022 Infusion Hematology and Oncology 11/04/2022 Office Visit Rheumatology Dante Freedman PA [facility] RHEUMATOLOGY [employer], [place] [address] (Wo rk) documented as of this encounter Visit Diagnoses Diagnosis Diabetes mellitus Type II or unspecified type diabetes fredo litus without mention of complication, not stated as uncontrolled 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
--- OUTSIDE RECORDS SUMMARY | 2022-05-24 10:55 | XMS_ITS | Encounter Summary ---
:1955 Author Organization [facility] Address [place] [id number] Care Team Providers Name Role Phone Violetta Sanford MD Primary Care Provider Encounter Details Date Type Department Care Team Description 05/31/2014 Office Visit Endocrinology at [facility] Donell Hernandez, Type II or unspecified type diabetes mellitus with neurological manifestations, uncontrolled(250.62) (Primary Dx); [facility] Ulcer of amputation stump of foot; [facility] CKD (chronic kidney disease) , [place] [address] CENTER [phone] END[address] [place] [address] Social History Tobacco Use Types Packs/Day Years [...] Sign Reading Time Taken Comments Blood Pressure 135/62 05/31/2014 11:23 AM EST Pulse 62 05/31/2014 11:23 AM EST Temperature - - Respiratory Rate - - Oxygen Saturation - - Inhaled Oxygen Concentration - - Weight 148.8 kg (328 lb) 05/31/2014 11:23 AM EST Height - - Body Mass Index 41 05/15/2014 9:55 AM EDT documented in this encounter Patient Instructions Patient InstructionsDonell Hernandez MD - 05/31/2014 12:01 PM EST Recent Results (from the past 24 hour(s)) HEMOGLOBIN A1C Component Value Range Hemoglobin A1C 9.7 (*) <=5.6 % Est Avg Gluc 232 CREATININE Component Value Range Creatinine 1.62 (*) 0.80 - 1.50 mg/dL Estimated GFR 44 (*) >=60 I recommended increasing the levemir to 65 twice a day. If the morning sugars stay over 200 after a week, go to 70 units twice a day. documented in this encounter Progress Notes Donell Hernandez MD - 05/31/2014 11:42 AM EST Year of diagnosis: Regimen ____ [...] bilateral bka R and morbid obesity. From January 18, 2014 1) DM2 - much improved control on higher dose of Basal insulin But also seems to be making a better diet effort and is more active now that he can walk on both legs with just a cane. No change. 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 His motorized chair has broken and he is encouraged ot not walk until the blister has healed. Regimen Basal levemir 60 bid Bolus aspart 30-40 units per meal (w snack) qid , misses lunch a lot hbgm 4 x a day Usually 200-210 Before meals One episode of 600's in afternoon Hypo none Diet B 2 donuts Sn L Mac and cheese Sn D Soup and cheese sandwich Sn popcorn Exercise Not walking well due to sore on R leg complications Eyes prior laser therapy ; seen in October Feet Bilateral BKA, working on second prosthesis Kidneys transplant autonomic: no gastroparesis bladder hypo unaware tachycardia cardiac no chest pain on exertion No shortness of breath at rest No history of stent cabg chf prevention: last eye exam: Due Jun 11 last microalbumin :2011 last Cr:today last lipid panel:2011 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 gabapentin (NEURONTIN) 300 mg Capsule 3 tabs in the AM and 3 tabs in the PM 540 capsule 3 ??? insulin aspart (NOVOLOG FLEXPEN) Insulin Pen Inject 30-40 Units subcutaneously 4 times daily. Form faxed to [facility] for new Rx 75 mL 11 ??? insulin detemir (LEVEMIR) Insulin Pen Inject 60 Units subcutaneously 2 times daily. Form faxed to [facility] for new Rx ??? Insulin [place], Disposable, (BD INSULIN PEN NEEDLE UF SHORT) 31 X 5/16 Needle Form faxed for new Rx to [facility] 450 each 4 ??? albuterol (PROVENTIL HFA;VENTOLIN HFA) 90 mcg/actuation HFA Aerosol Inhaler Inhale 2 puffs into the lungs every 4 hours as needed. Use with spacer ??? CELLCEPT 250 mg capsule Take 2 capsules by mouth 2 times daily. Kidney Transplant V42.0. Transplant Date; 02-29-08 120 capsule 11 ??? PROGRAF 1 mg capsule Take 1 capsule by mouth 2 times daily. KIDNEY TRANSPLANT V42.0. TRANSPLANT DATE - 02/29/2008 60 capsule 11 ??? propranolol (INDERAL) 80 mg tablet Take 1 tablet by mouth 2 times daily. 360 tablet prn ??? fluticasone (FLONASE) 50 mcg/actuation nasal spray 2 sprays by Each Nare route as needed. 64 g 11 ??? MULTIVITS-MINERALS/FA/LYCOPENE (ONE-A-DAY MEN'S MULTIVITAMIN ORAL) Take by mouth daily. ??? glucagon, human recombinant, 1 mg/mL injection Inject 1 mL into the muscle as needed. 1 each 3 ??? aspirin 81 mg EC tablet Take 81 mg by mouth daily. ??? losartan (COZAAR) 50 mg tablet Take 1 tablet by mouth daily. 30 tablet 11 ??? CHOLECALCIFEROL, VITAMIN D3, (VITAMIN D-3 ORAL) Take 2,000 Int'l Units by mouth daily. ??? folic acid (FOLVITE) 1 mg tablet Take 2 mg by mouth daily. ??? simvastatin (ZOCOR) 10 mg tablet Take 1 tablet by mouth nightly. 30 tablet 11 ??? montelukast (SINGULAIR) 10 mg tablet Take 10 mg by mouth daily. ??? omeprazole (PRILOSEC) 40 mg capsule Take 40 mg by mouth daily. 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 Range 03/05/2013 10:05 08/06/2013 12:52 11/07/2013 12:15 01/18/2014 12:29 05/31/2014 10:22 Hemoglobin A1C Latest Range: <=5.6 % 8.0 (H) 7.5 (H) 9.2 (H) 8.4 (H) 9.7 (H) Results for LEROY DAILEY ( ) as of 05/31/2014 11:44 Ref. Range 06/26/2013 05:45 11/07/2013 12:15 01/18/2014 12:29 02/25/2014 10:01 05/31/2014 10:22 Creatinine Latest Range: 0.80-1.50 mg/dL 1.16 1.59 (H) 1.61 (H) 1.58 (H) 1.62 (H) 1) DM2 - he has had a significant deterioration in his diabetes control despite stable weight. The main factors are failure to cover lunch with insulin (but this is longstanding) and reduced exercise due to stump ulcer. However it does not look like he will be able to be very active soon, so I raised his glargine to 65 bid and he is to go to 70 bid if his sugars are mainly over 200 after a week.. I gave him written instructions 2) stump ulcer - this is shallow and uninfected but the fact that it occurred should result in a refitting - I encouraged him to seek this 3) bilateral bka - He asks me to fill out the paperwork for a motorized chair; this seems reasonablebecause he cannot be active with the stump ulcer and need for periodic/prosthesis revisions. 4) prevention - follows up with ophthamology and has had flu shot. 5) CKD - stable at stage 3 documented in this encounter Plan of Treatment Upcoming Encounters Date Type Specialty Care Team Description 05/26/2022 Office Visit Otolaryngology Ricardo Panda PA [facility] [address] [place], [place] [address] (Wo rk) 06/02/2022 Infusion Hematology and Oncology 06/16/2022 Infusion Hematology and Oncology 06/21/2022 Office Visit Neurology Tyler Rojas MD [facility] Neurology [place], [place] [phone] (Wo rk) 06/30/2022 Infusion Hematology and Oncology 07/14/2022 Infusion Hematology and Oncology 07/28/2022 Infusion Hematology and Oncology 08/11/2022 Infusion Hematology and Oncology 11/04/2022 Office Visit Rheumatology Dante Freedman PA [facility] RHEUMATOLOGY [place], [place] [address] (Wo rk) documented as of this encounter Procedures Procedure Name Priority Date/Time Associated Diagnosis Comme nts CREATININE STAT 05/31/2014 10:22 AM Type II or unspecifie d Results for this EST type diabetes mellitus proce dure are in with neurological the result s manifestations, section. uncontrolled(250.62) HEMOGLOBIN A1C STAT 05/31/2014 10:22 AM Type II or unspecif ied Results for this EST type diabetes mellitus proce dure are in with neurological the result s manifestations, section. uncontrolled(250.62) documented in this encounter Results (ABNORMAL) Creatinine (11/20/2014 8:50 AM EDT) athologist Signature Creatinine 1.54 (H) 0.80 - CERNER 1.50 mg/dL [facility] Comment: Please note that the pediatric reference intervals supplied above were not validated at [facility]. Results from pediatri c patients should be interpreted in conjunction to the patient's age, height and muscle mass. Estimated GFR 46 (L) >=60 DELLANER NEL Ramirez Comment: This estimated GFR (eGFR) value was [...] the following links into your internet browser. [email or web address] http://Yuantiku/[facility] TULSAnkf Specimen Anatomical Collection Method Collection Time Receive d Time (Source) Location / / Volume Laterality Blood specimen 11/20/2014 8:50 AM 015 9:01 (specimen) EDT AM EDT Resulting Agency Comment Spec In Lab Donell Hernandez MD CHEMISTRY ORDERABLES Performing Organization Address City/State/ZIP Code [place] [address] CERNER MILLENNIUM (ABNORMAL) Hemoglobin A1c (11/20/2014 8:50 AM EDT) Analysis Performed At Patho logist Time Signature Hemoglobin A1C 8.9 (H) 4.3 - 5.6 CERNER % MILLENNIUM Comment: Reference Range: 4.3 - 5.6% 5.7 - 6.4% - Increased Risk of Developin g Diabetes Mellitus 6.5% - Consistent with diagnosis of Diab etes Mellitus In the absence of hyperglycemia (i.e. pl asma glucose > 200 mg/dL) or classic symptoms of hyperglycemia a repeat measu rement of HbA1c should be performed on a separate sample to confirm the diagnos is. Diagnosis and Classification of Diabetes Mellitus, Diabetes Care 2013; 36: Suppl. 1, S67-54 Est Avg Gluc 209 mg/dL [facility] Comment: eAG equivalents for HbA1c percentages: HbA1c(%) ?eAG(mg/dL) 6.0 ?126 6.5 ?140 7.0 ?154 7.5 ?169 8.0 ?183 8.5 ?197 9.0 ?212 9.5 ?226 10.0 ? 240 Limitations: The eAG calculation has not been validated on women, individuals below 18 years old and above 70 years old, and individuals with hemoglobinopathies. Additional resources are available on WHITT website: http://Yuantiku/[facility] TULSAadacalc Scooby MALDONADO, Nba J, Sydnee R, et al. ??Tr anslating the A1C assay into estimated average glucose values. ??Diabetes Care 2008:31(8):2392-9943. Specimen Anatomical Collection Method Collection Time Receive d Time (Source) Location / / Volume Laterality Blood specimen 11/20/2014 8:50 AM 015 9:01 (specimen) EDT AM EDT Resulting Agency Comment Spec In Lab Donell Hernandez MD CHEMISTRY ORDERABLES Performing Organization Address City/[facility] Phon e Number [address] CERNER MILLENNIUM (ABNORMAL) Creatinine (05/31/2014 10:22 AM EST) athologist Signature Creatinine 1.62 (H) 0.80 - CERNER 1.50 mg/dL [facility] Comment: Please note that the pediatric reference intervals supplied above were not validated at [facility]. Results from pediatri c patients should be interpreted in conjunction to the patient's age, height and muscle mass. Estimated GFR 44 (L) >=60 DELLANER NELLIEIU M Comment: This estimated GFR (eGFR) value [...] the following links into your internet browser. [email or web address] [email or web address]/DHMCnkf Specimen Anatomical Collection Method Collection Time Receive d Time (Source) Location / / Volume Laterality Blood specimen 05/31/2014 10:22 4 (specimen) AM EST 10:30 AM EST Resulting Agency Comment Spec In Lab Donell Hernandez MD CHEMISTRY ORDERABLES Performing Organization Address City/[facility]/ZIP [facility] [place] [address] [facility] (ABNORMAL) Hemoglobin A1c (05/31/2014 10:22 AM EST) Analysis Performed At [facility] Time Signature Hemoglobin A1C 9.7 (H) <=5.6 % [facility] Comment: Reference Range: 4.3 - 5.6% 5.7 - 6.4% - Increased Risk of Developin g Diabetes Mellitus 6.5% - Consistent with diagnosis of Diab etes Mellitus In the absence of hyperglycemia (i.e. pl asma glucose > 200 mg/dL) or classic symptoms of hyperglycemia a repeat measu rement of HbA1c should be performed on a separate sample to confirm the diagnos is. Diagnosis and Classification of Diabetes Mellitus, Diabetes Care 2013; 36: Suppl. 1, S67-74 Est Avg Gluc 232 mg/dL [facility] Comment: eAG equivalents for HbA1c percentages: HbA1c(%) ?eAG(mg/dL) 6.0 ?126 6.5 ?140 7.0 ?154 7.5 ?169 8.0 ?183 8.5 ?197 9.0 ?212 9.5 ?226 10.0 ? 240 Limitations: The eAG calculation has not been validated on women, individuals below 18 years old and above 70 years old, and individuals with hemoglobinopathies. Additional resources are available on WHITT website: http://Bundle.BigBarn/DHMCadacalc Scooby MALDONADO, Nba Gilbert, Sydnee R, et al. ??Tr anslating the A1C assay into estimated average glucose values. ??Diabetes Care 2008:31(8):3294-3159. Specimen Anatomical Collection Method Collection Time Receive d Time (Source) Location / / Volume Laterality Blood specimen 05/31/2014 10:22 4 (specimen) AM EST 10:31 AM EST Resulting Agency Comment Spec In Lab Donell Hernandez MD CHEMISTRY ORDERABLES Performing Organization Address City/State/ZIP Code Phon e Number [place] [id number] [address] [facility] documented in this encounter Visit Diagnoses Diagnosis Type II or unspecified type diabetes fredo litus with neurological manifestations, uncontrolled(250.62) - Primary Type II or unspecified type diabetes fredo litus with neurological manifestations, uncontrolled Ulcer of amputation stump of foot CKD (chronic kidney disease), stage III Chronic kidney disease, Stage III (moder ate) documented in this encounter Care Teams Director Of Preclinical Research Relationship Specialty Start Date End Date Violetta Sanford MD PCP - General 04/02/14 [address] [place] [address] documented as of this encounter
--- OUTSIDE RECORDS SUMMARY | 2022-05-24 10:55 | XMS_ITS | Encounter Summary ---
:1955 Author Organization [facility] [place] [address] Care Team Providers Name Role Phone Dc Ibanez MD Primary Care Provider Encounter Details Date Type Department Care Team Description 02/11/2014 Orders Only Urology at [facility] Adair Goodman Scrotal pain (Primary [facility] BERTA Lee [place]x) [place] [address] UROLOG[address] DEPT. [place], [place] [address] Social History Tobacco Use Types [...] documented as of this encounter Progress Notes Laura Ayala APRN - 02/11/2014 12:42 PM EDT Pt referred for scrotal pain. Per referring notes, was improving at time of most recent visit. However, pt called indicating pt having discomfort and wants to get in sooner than 02/22/14. I will see him on 02/13/14 at 11 am with scrotal US prior. documented in this encounter Plan of Treatment Upcoming Encounters Date Type Specialty Care Team Description 05/26/2022 Office Visit Otolaryngology Ricardo Panda PA [facility] [place] [address] (Wo rk) 06/02/2022 Infusion Hematology and Oncology 06/16/2022 Infusion Hematology and Oncology 06/21/2022 Office Visit Neurology Tyler Rojas MD [facility] er Neurology [place], [place] [phone] (Wo rk) 06/30/2022 Infusion Hematology and Oncology 07/14/2022 Infusion Hematology and Oncology 07/28/2022 Infusion Hematology and Oncology 08/11/2022 Infusion Hematology and Oncology 11/04/2022 Office Visit Rheumatology Dante Freedman PA [facility] RHEUMATOLOGY [place], [place] [address] (Wo rk) documented as of this encounter Results US scrotum (02/13/2014 10:41 AM EDT) Anatomical Region Laterality Modality Pelvis Ultrasound Specimen (Source) Anatomical Collection Method Collection Time Re ceived Time Location / / Volume Laterality 02/13/2014 10:41 AM EDT Narrative 02/13/2014 11:34 AM EDT Scrotal ?(Signed Final 02/13/2014 11:33 ? am) Patient Info ID #: ? [id number] ?: ??[birth year] (58 yrs) Name: ? LEROY Sania DAILEY ? Visit Date: 02/13/2014 10:10 am Performed By Performed By: ?Sharan HERNANDEZ, Loretta Associate: ? Chris HAWK, Nikolay Freed Attending: ? Deirdre HAWK, Phyllis Gil Referred By: ? LAURA GOODMAN ESTIMATING ENGINEER Service(s) Provided ??[facility] - Ultrasound Scrotum and Contents with ?[id number], [id number] ??Vascular - [id number], [id number] Indications ??Scrotal pain Comparison None available. Right Testicle Measurement(cm) ? L: ??3.4 ?AP: ?? 2.4 ? TV: ??2.2 Vol (ml): ?9.4 Vascularity: ?Symmetric Doppler: Arterial: Visualized Venous: ?? Visualized Comment: ?Limited visualization/brice luation due to large left ? hydrocele. ??No intra testicular mass seen. Right Epididymis Head: ?Not visualized due to hydroc shantanu Body: ?Not visualized due to hydroc shantanu Tail: ?Not visualized due to hydroc shantanu Right Other Hydrocele: ? No hydrocele seen Varicocele: ?Not able to evaluat e Left Testicle Measurement(cm) ? L: ??4.3 ?AP: ?? 1.5 ? TV: ??2.9 Vol (ml): ?9.8 Vascularity: ?Symmetric Comment: ?Limited visualization/brice luation due to large left ? hydrocele. ??No intra testicular mass seen. Left Epididymis Head: ?Not visualized due to hydroc shantanu Body: ?Not visualized due to hydroc shantanu Tail: ?Not visualized due to hydoce le Left Other Hydrocele: ? Large, complex with septations and echoes, ?approx 10.7 c m in greatest dimension Varicocele: ?Not able to evaluat e Impression Ultrasound - ??Testicular - Summary Large complex left ken-scrotum fluid c ollection which may represent a hydrocele with proteina ceous debris, pyocele or hematocele. The collection c auses mass effect on the testes/right hemiscrotum, however they appear symmetric in size and vascularit y. Epididymides are not visualized. I ??viewed the images and agree with maribell hamm above interpretation. ?Phyllis Gilmore MD Electronically Signed Final Report ?? 11:33 am Film and interpretation reviewed by the attending Procedure Note Phyllis Gilmore MD - 02/13/2014Formatt ing of this note might be different from the original. Scrotal (Signed Final 02/13/2014 11:33 am) Patient Info ID #: [id number] : [birth year] (58 y rs) Name: LEROY DAILEY Visit Date: 01/23 10:10 am Performed By Performed By: Loretta Tsang RDMS Associate: Nikolay Perez MD Attending: Phyllis Gilmore MD Referred By: LAURA CASAS Service(s) Provided [facility] - Ultrasound [place]rot[place] [id number], [id number] Vascular - [id number], [id number] Indications Scrotal pain Comparison None available. Right Testicle Measurement(cm) L: 3.4 AP: 2.4 TV: 2.2 Vol (ml): 9.4 Vascularity: Symmetric Doppler: Arterial: Visualized Venous: Visualized Comment: Limited visualization/evaluati on due to large left hydrocele. No intratesticular mass seen . Right Epididymis Head: Not visualized due to hydrocele Body: Not visualized due to hydrocele Tail: Not visualized due to hydrocele Right Other Hydrocele: No hydrocele seen Varicocele: Not able to evaluate Left Testicle Measurement(cm) L: 4.3 AP: 1.5 TV: 2.9 Vol (ml): 9.8 Vascularity: Symmetric Comment: Limited visualization/evaluati on due to large left hydrocele. No intratesticular mass seen . Left Epididymis Head: Not visualized due to hydrocele Body: Not visualized due to hydrocele Tail: Not visualized due to hydocele Left Other Hydrocele: Large, complex with septatio ns and echoes, approx 10.7 cm in greatest dimension Varicocele: Not able to evaluate Impression Ultrasound - Testicular - Summary Large complex left ken-scrotum fluid c ollection which may represent a hydrocele with proteina ceous debris, pyocele or hematocele. The collection c auses mass effect on the testes/right hemiscrotum, however they appear symmetric in size and vascularit y. Epididymides are not visualized. I viewed the images and agree with the above interpretation. Phyllis Gilmore MD Electronically Signed Final Report 02/13 11:33 am Film and interpretation reviewed by the attending Marco Lemus MD IMG US GEN ORDERABLES documented in this encounter Visit Diagnoses Diagnosis Scrotal pain - Primary Unspecified disorder of male genital org ans Scrotal pain Unspecified disorder of male genital org ans documented in this encounter Care Teams Line Assigner Relationship Specialty Start Date End Date Dc Ibanez MD PCP - General 04/02/13 04/01/14 [facility] [address] [place] [address] documented as of this encounter
--- OUTSIDE RECORDS SUMMARY | 2022-05-24 10:55 | XMS_ITS | Encounter Summary ---
:1955 Author Organization [facility] Address [address] [place] [address] Care Team Providers Name Role Phone Dc Ibanez MD Primary Care Provider Reason for Visit Reason Comments Diabetes Encounter Details Date Type Department Care Team Description 01/18/2014 Office Visit Endocrinology at [facility] Donell Hernandez, Type II or unspecified type diabetes mellitus with neurological manifestations, uncontrolled(250.62) (Primary Dx); [facility] Tremor/tics; [facility] [place] Nasal sinus congestion; [place] [address] [facility] History of renal transplant; [phone] ENDOCRINOLOGY CKD (chronic k idney disease), stage II DEPT. [place] [id number] Social History Tobacco Use Types Packs/Day Years [...] Sign Reading Time Taken Comments Blood Pressure 142/67 01/18/2014 1:20 PM EDT Pulse 67 01/18/2014 1:20 PM EDT Temperature - - Respiratory Rate - - Oxygen Saturation - - Inhaled Oxygen Concentration - - Weight 148.8 kg (328 lb) 01/18/2014 1:20 PM with prosth etics EDT Height - - Body Mass Index 41 11/22/2013 12:56 PM EDT documented in this encounter Progress Notes Donell Hernandez MD - 01/18/2014 1:43 PM EDT Year of diagnosis: Regimen ____ [...] bilateral bka R and morbid obesity. From October 2013 1) DM1 - his control is much worse than it has been for the past year. He has not gained weight and does not appear to be eating differently. The possible causes are 1) withdrawl of liraglutide 2) progression of insulin resistance due to prograf 3) change in composition of diet to higher carbs 4) lessexercise in the absence of scheduled PT. . I think it is the withdrawal of liraglutide but he will not go back to it because he says it caused significant back pain, thought this would be an unusual adverse effect. I raised his pm levemir to 60 units and I encourarged him to be more active 2) transplant/CKD stage 3 - his creatinine is up a bit - will recheck on next visit 3) COPD 4) retinopathy - stable 5) neuropathy 0- in a good place 6) bilateral BKA with prosthesis - he has tried to remain active. Stopped liraglutide due chronic back ache relieved when he stopped Had a urologic problem swollen testicle - getting better on its own and has a urologic appt coming up Echo coming up as well Regimen Basal levemir 60 bid (was 55) Bolus aspart 30-40 units per meal (w snack) qid hbgm Bid fbs <200 5Pm <250, never 300 4 x a day Before meals and bedtime Hypo none Diet B 2 toast w pb Sn L cheeseburger Sn D Burger 1 w bun, 1 without Sn popcorn Exercise second prosthesis, now walks complications Eyes prior laser therapy ; seen in October Feet Bilateral BKA, working on second prosthesis Kidneys transplant autonomic: no gastroparesis bladder hypo unaware tachycardia cardiac no chest pain on exertion No shortness of breath at rest No history of stent cabg chf prevention: last eye exam: Nov 22 2013 last microalbumin :2011 last Cr:today last lipid panel:2011 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 insulin aspart (NOVOLOG FLEXPEN) pen injection Inject 40-50 Units subcutaneously 4 times daily. ??? tiotropium (SPIRIVA WITH HANDIHALER) 18 mcg inhalation capsule with device Inhale 18 mcg into the lungs daily. ??? propranolol (INDERAL) 80 mg tablet Take 1 tablet by mouth every 6 hours. 360 tablet prn ??? insulin detemir (LEVEMIR) pen injection Inject 60 Units subcutaneously 2 times daily. ??? Insulin [place], Disposable, (BD INSULIN PEN NEEDLE UF SHORT) 31 X 12/07 Ndle Please use as directed. 3 month refill = 450 PEN needles. 450 each 4 ??? gabapentin (NEURONTIN) 300 mg capsule Take 5 capsules by mouth daily. 2 tabs in the AM and 3 tabs in the PM 450 capsule 3 ??? tacrolimus (PROGRAF) 1 mg/2 mL Botl Take 2 mLs by mouth 2 times daily. ??? miconazole (MICOTIN) 2 % powder Apply topically 2 times daily. 70 g ??? MULTIVITS-MINERALS/FA/LYCOPENE (ONE-A-DAY MEN'S MULTIVITAMIN ORAL) Take by mouth daily. ??? CELLCEPT 250 mg capsule Take 2 capsules by mouth 2 times daily. Kidney Transplant V42.0. Transplant Date; 02-29-08 120 capsule 11 ??? aspirin 81 mg EC tablet Take [...] Take 40 mg by mouth daily. ??? [DISCONTINUED] insulin aspart (NOVOLOG) pen injection Inject 35-50 Units subcutaneously 3 times daily (with meals). 105 mL 3 ??? fluticasone (FLONASE) 50 mcg/actuation nasal spray 2 sprays by Each Nare route as needed. 64 g 11 ??? glucagon, human recombinant, 1 mg/mL injection Inject 1 mL into the muscle as needed. 1 each 3 Vitals 01/18/2014 11/22/2013 SYSTOLIC 142 128 DIASTOLIC 67 54 BP Location PULSE 67 63 TEMPERATURE RESPIRATIONS Height (Chinese) 6' 3 Height (Metric) 190.5 cm Weight (Chinese) 328 lbs 327 lbs Weight (Metric) 148.78 kg 148.326 kg BODY MASS INDEX 41 kg/m2 40.87 kg/m2 Appearance:looks well wt Change Stab;e ( weighed with prosthesis) eyes: old retinopathy seen by green light ext: n/a feet: n/a Recent Results (from the past 24 hour(s)) HEMOGLOBIN A1C Component Value Range Hemoglobin A1C 8.4 (*) <=5.6 % Est Avg Gluc 194 CREATININE Component Value Range Creatinine 1.61 (*) 0.80 - 1.50 mg/dL Estimated GFR 44 (*) >=60 Ref. Range 08/06/2013 12:52 11/07/2013 12:15 01/18/2014 12:29 Creatinine Latest Range: 0.80-1.50 mg/dL 1.59 (H) 1.61 (H) Estimated GFR Latest Range: >=60 45 (L) 44 (L) Hemoglobin A1C Latest Range: <=5.6 % 7.5 (H) 9.2 (H) 8.4 (H) Est Avg Gluc No range found 169 217 194 1) DM2 - much improved control on [...] pneumovax every 5 years due to immunocompromise documented in this encounter Plan of Treatment Upcoming Encounters Date Type Specialty Care Team Description 05/26/2022 Office Visit Otolaryngology Ricardo Panda PA [facility] [address] [place] [address] (Wo rk) 06/02/2022 Infusion Hematology and Oncology 06/16/2022 Infusion Hematology and Oncology 06/21/2022 Office Visit Neurology Tyler Rojas MD [facility] Neurology [place], [place] [phone] (Wo rk) 06/30/2022 Infusion Hematology and Oncology 07/14/2022 Infusion Hematology and Oncology 07/28/2022 Infusion Hematology and Oncology 08/11/2022 Infusion Hematology and Oncology 11/04/2022 Office Visit Rheumatology Dante Freedman PA [facility] RHEUMATOLOGY [place], [place] [address] (Wo rk) documented as of this encounter Procedures Procedure Name Priority Date/Time Associated Diagnosis Comme nts CREATININE STAT 01/18/2014 12:29 PM Type II or unspecifie d Results for this EDT type diabetes mellitus proce dure are in with neurological the result s manifestations, section. uncontrolled(250.62) HEMOGLOBIN A1C STAT 01/18/2014 12:29 PM Type II or unspecif ied Results for this EDT type diabetes mellitus proce dure are in with neurological the result s manifestations, section. uncontrolled(250.62) documented in this encounter Results (ABNORMAL) Creatinine (05/31/2014 10:22 AM EST) athologist Signature Creatinine 1.62 (H) 0.80 - CERNER 1.50 mg/dL [facility] Comment: Please note that the pediatric reference intervals supplied above were not validated at [facility]. Results from pediatri c patients should be interpreted in conjunction to the patient's age, height and muscle mass. Estimated GFR 44 (L) >=60 HOLLI Ramirez Comment: This estimated GFR (eGFR) value [...] the following links into your internet browser. [email or web address] Specimen Anatomical Collection Method Collection Time Receive d Time (Source) Location / / Volume Laterality Blood specimen 05/31/2014 10:22 4 (specimen) AM EST 10:30 AM EST Resulting Agency Comment Spec In Lab Donell Hernandez MD CHEMISTRY ORDERABLES Performing Organization Address City/State/ZIP Code Phon e Number [place] [id number] [facility] (ABNORMAL) Hemoglobin A1c (05/31/2014 10:22 AM EST) Analysis Performed At Patho logist Time Signature Hemoglobin A1C 9.7 (H) <=5.6 % [facility] Comment: Reference Range: 4.3 - 5.6% [...] 36: Suppl. 1, S67-91 Est Avg Gluc 232 mg/dL C[facility]ER [facility] Comment: eAG equivalents for HbA1c percentages: HbA1c(%) ?eAG(mg/dL) 6.0 ?126 6.5 ?140 7.0 ?154 7.5 ?169 8.0 ?183 8.5 ?197 9.0 ?212 9.5 ?226 10.0 ? 240 Limitations: The eAG calculation has not been validated on women, individuals below 18 years old and above 70 years old, and individuals with hemoglobinopathies. Additional resources are available on [facility] website: [email or web address] M[facility]UMadacalc Scooby MALDONADO, Nba J, Sydnee R, et al. ??Tr anslating the A1C assay into estimated average glucose values. ??Diabetes Care 2008:31(8):5162-5535. Specimen Anatomical Collection Method Collection Time Receive d Time (Source) Location / / Volume Laterality Blood specimen 05/31/2014 10:22 4 (specimen) AM EST 10:31 AM EST Resulting Agency Comment Spec In Lab Donell Hernandez MD CHEMISTRY ORDERABLES Performing Organization Address City/State/[place] [address] [facility] (ABNORMAL) Creatinine (01/18/2014 12:29 PM EDT) athologist Signature Creatinine 1.61 (H) 0.80 - CERNER 1.50 mg/dL [facility] Comment: Please note that the pediatric reference intervals supplied above were not validated at [facility]. Results from pediatri c patients should be interpreted in conjunction to the patient's age, height and muscle mass. Estimated GFR 44 (L) >=60 HOLLI Ramirez Comment: This estimated GFR (eGFR) value [...] the following links into your internet browser. [email or web address] – [email or web address] Specimen Anatomical Collection Method Collection Time Receive d Time (Source) Location / / Volume Laterality Blood specimen 01/18/2014 12:29 4 (specimen) PM EDT 12:32 PM EDT Resulting Agency Comment Spec In Lab Donell Hernandez MD CHEMISTRY ORDERABLES Performing Organization Address City/State/[place] [address] [facility] ([facility] Hemoglobin A1c (01/18/2014 12:29 PM EDT) Analysis Performed At [facility] Time Signature Hemoglobin A1C 8.4 (H) <=5.6 % [facility] Comment: Reference Range: 4.3 ? 5.6% 5.7 ? 6.4% - Increased Risk of Developing Diabetes Mellitus 6.5% - Consistent with diagnosis of Diab etes Mellitus In the absence of hyperglycemia (i.e. pl asma glucose > 200 mg/dL) or classic symptoms of hyperglycemia a repeat measu rement of HbA1c should be performed on a separate sample to confirm the diagnos is. Diagnosis and Classification of Diabetes Mellitus, Diabetes Care 2013; 36: Suppl. 1, R94-28 Est Avg Gluc 194 mg/dL [facility] Comment: eAG equivalents for HbA1c percentages: HbA1c(%) ?eAG(mg/dL) 6.0 ?126 6.5 ?140 7.0 ?154 7.5 ?169 8.0 ?183 8.5 ?197 9.0 ?212 9.5 ?226 10.0 ? 240 Limitations: The eAG calculation has not been validated on women, individuals below 18 years old and above 70 years old, and individuals with hemoglobinopathies. Additional resources are available on [facility] website: [email or web address] – MANGUMadacalc Scooby MALDONADO, Nba J, Sydnee R, et al. ??Tr anslating the A1C assay into estimated average glucose values. ??Diabetes Care 2008:31(8):4559-9018. Specimen Anatomical Collection Method Collection Time Receive d Time (Source) Location / / Volume Laterality Blood specimen 01/18/2014 12:29 4 (specimen) PM EDT 12:32 PM EDT Resulting Agency Comment Spec In Lab Donell Hernandez MD CHEMISTRY ORDERABLES Performing Organization Address City/State/[place] [address] [address] [facility] documented in this encounter Visit Diagnoses Diagnosis Type II or unspecified type diabetes fredo litus with neurological manifestations, uncontrolled(250.62) - Primary Type II or unspecified type diabetes fredo litus with neurological manifestations, uncontrolled Tremor/tics Abnormal involuntary movements Nasal sinus congestion Other diseases of nasal cavity and sinus es History of renal transplant Kidney replaced by transplant CKD (chronic kidney disease), stage II Chronic kidney disease, Stage II (mild) documented in this encounter Care Teams Trust Manager Relationship Specialty Start Date End Date Dc Ibanez MD PCP - General 04/02/13 04/01/14 ANAMAR[address] [facility] [place] [address] documented as of this encounter
--- OUTSIDE RECORDS SUMMARY | 2022-05-24 10:55 | XMS_ITS | Encounter Summary ---
:1955 Author Organization [facility] [place] [address] Care Team Providers Name Role Phone Violetta Sanford MD Primary Care Provider Reason for Visit Reason Comments Cyst Encounter Details Date Type Department Care Team Description 04/10/2014 Emergency Emergency Department Sylvia vega, Karen Caban [facility] [place] [address] [place] [address] [phone] (Wo rk) Social History Tobacco Use Types [...] Sign Reading Time Taken Comments Blood Pressure 134/61 04/10/2014 3:31 PM EDT Pulse 58 04/10/2014 3:31 PM EDT Temperature 36.4 ??C (97.5 ??F) 04/10/2014 3:31 PM EDT Respiratory Rate 14 04/10/2014 3:31 PM EDT Oxygen Saturation 96% 04/10/2014 3:31 PM EDT Inhaled Oxygen Concentration - - Weight - - Height - - Body Mass Index - - documented in this encounter Discharge Instructions Discharge InstructionsCoMarguerite curry MD - 04/11/2014 1:40 AM EDT Continue to use warm compresses to the area several times a day to encourage more draining and keep the area clean with soap and water. May apply antibacterial ointment and a clean bandage between compresses. Return to the ED if fever and chills develop, pain and swelling acutely worsen, erythema incre ases or develop tracks from the site, or increasing discharge of purulent material occurs. documented in this encounter Medications at Time of Discharge Medication Sig Dispensed Refills Start Date End Date aspirin 81 mg EC tablet Take 81 mg by mouth 0 daily. albuterol (PROVENTIL Inhale 2 puffs into 0 10/31/2014 HFA;VENTOLIN HFA) 90 the lungs every 4 mcg/actuation HFA hours as needed. Use Aerosol Inhaler with spacer CELLCEPT 250 mg Take 2 capsules by 120 capsule 11 02/25/2014 03/08/2015 capsuleIndications: mouth 2 times daily. Transplanted kidney Kidney Transplant V42.0. Transplant Date; 02-29-08 PROGRAF 1 mg capsule Take 1 capsule by 60 capsule 11 02/26/20 14 03/08/2015 mouth 2 times daily. KIDNEY TRANSPLANT V42.0. TRANSPLANT DATE - 02/29/2008 insulin aspart (NOVOLOG Inject 50-60 Units 75 mL 12/2404/19/2014 FLEXPEN) pen injection subcutaneously 4 times daily. propranolol (INDERAL) 80 Take 1 tablet by 360 tablet 0 01/1810/31/2014 mg tabletIndications: mouth 2 times daily. Tremor fluticasone (FLONASE) 50 2 sprays by Each 64 g 11 01/1808/29/2019 mcg/actuation nasal Nare route as sprayIndications: Nasal needed. sinus congestion, Type II or unspecified type diabetes mellitus with neurological manifestations, uncontrolled(250.62) insulin detemir Inject 60 Units 0 03/26 (LEVEMIR) pen injection subcutaneously 2 times daily. Insulin [place], Please use as 450 each 4 11/07/201304/19 Disposable, (BD INSULIN directed. 3 month PEN NEEDLE UF SHORT) 31 refill = 450 PEN X /16 needles. NdleIndications: Diabetes mellitus, Type II or unspecified type diabetes mellitus with neurological manifestations, uncontrolled(250.62) gabapentin (NEURONTIN) Take 5 capsules by 450 capsule 3 10/2305/15/2014 300 mg mouth daily. 2 tabs capsuleIndications: Type in the AM and 3 tabs II or unspecified type in the PM diabetes mellitus with neurological manifestations, uncontrolled(250.62), Type 2 diabetes mellitus with diabetic neuropathy MULTIVITS-MINERALS/FA/LY Take by mouth daily. 0 08/29/2019 [place] (ONE-A-DAY MEN'S MULTIVITAMIN ORAL) glucagon, human Inject 1 mL into the 1 each 3 11/29/2012 05/07/2015 recombinant, 1 mg/mL muscle as needed. injectionIndications: Type II or unspecified type diabetes mellitus with neurological manifestations, uncontrolled(250.62) losartan (COZAAR) 50 mg Take 1 tablet by 30 tablet 11 201010/31/2014 tabletIndications: HTN mouth daily. (hypertension) folic acid (FOLVITE) 1 Take 2 mg by mouth 0 02/03/2017 mg tablet daily. simvastatin (ZOCOR) 10 Take 1 tablet by 30 tablet 11 011 03/17/2015 mg tabletIndications: mouth nightly. Hypercholesteremia montelukast (SINGULAIR) Take 10 mg by mouth 0 05/27/2021 10 mg tablet daily. omeprazole (PRILOSEC) 40 Take 40 mg by mouth 0 02/03/2017 mg capsule daily. documented as of this encounter ED Notes Keerthi Vargas RN - 04/10/2014 7:23 PM EDT Pt. And family left without being seen by an Attending. States,' we don't need this. Keerthi Vargas RN - 04/10/2014 7:17 PM EDT Report given to Hayley Burger RN. Keerthi Vargas RN - 04/10/2014 6:[address] Pfeiffer in to evaluate pt. Keerthi Vargas RN - 04/10/2014 6:10 PM EDT To #18 via stretcher. Assumed pt care at this time. Pt. And family upset at length of wait. States,I f I am not seen soon I am walking out of here. Assessment of groin cyst deferred at this time. Karen Wilder MD - 04/10/2014 5:39 PM EDT Leroy Torres is an 58 y.o. male who presents to the ED with: Chief Complaint Patient presents with ??? Cyst I saw this patient on 04/10/2014 HPI Leroy Torres is a 58 y.o. male who presents to the Emergency Department for evaluation of right groin cyst. First noticed a painful area of right groin about 2 days ago. Placed a hot compress on itlast night and it broke. He new this because there was blood on his underwear when he removed them. Has never actually seen the site because it's difficult to see as he has a large abdomen. He has gotten these before under his armpits, but this is the first time he has had one in the groin. Has had them lanced and was given antibiotics x 10 days in the past. The last one he had was in his armpit 3 years ago. Reports no fever, chills, but has felt extra fatigue for the last week so much so that he has had to take naps in the afternoon, which is unusual for him. He stated that he was scheduled for left-sided hydrocele repair today, but when the surgeon saw the cyst he was sent to the ED for further evaluation and the surgery was canceled. Smoker in past quit 25 years, smoked 20 year x2-2.5 PPD Review of Systems: Gen: No fever chill HEENT: no changes in vision, no headaches CV: no CP, no heart palpitations Resp: reports chronic cough, wheezing occasional, SOB about the same Abd: no abd pain, no constipation, no diarrhea, no blood in stool : no pain or burning with urination, no hematuria, (+) for hydrocele on the left Musc: muscle pain in shoulders, no myalgias Psych: no changes in mood Endocrine: (+) diabetes PMH: reviewed Patient Vitals for the past 24 hrs: BP Temp Temp src Pulse Resp SpO2 04/10/14 1531 134/61 mmHg 36.4 ??C (97.5 ??F) Oral 58 14 96 % Physical Exam: Gen: Well-developed, well-nourished NAD pleasant male HEENT: N/C A/T, PEERLA, MMM, no cervical or axillary lymphadenopathy CV: Distant heart sounds, RRR, no m/r/g detected Resp: Crackles at lung bases b/l, mild expiratory wheezes Abd: obese, distended, but not out of the usual, non-tender, normal bowel sounds x4 quads Groin: 3-4cm erythematous draining cyst with denuded skin overlying. It appears most of it has drained already, but a small area of induration remains inferiorly, slightly tender, but much less so after draining Extremities: b/l amputations ED Course: - Patient was evaluated and discussed with Dr. Wilder - Medications, allergies and past medical history reviewed -Patient left before care or the discharge instructions could be provided Assessment and Plan: 58 y.o. male with history of axillary cysts presenting with a carbuncle of the right inguinal region. The cyst has already started draining on its own. It is advised that he allow the draining processto continue, keep the area clean with soap and water, and use hot compresses to the site several times daily until healing is achieved. If he should develop fever, chills, increased or tracking erythema or resurgence of purulent discharge he should return the ED for further evaluation and administration of antibiotics. Patient left before any care or instructions could be provided. MD Erich SAENZ Molly C E, MD Resident 04/11/14 0147 EMERGENCY ATTENDING NOTE Patient presented to me by resident. Pertinant ROS performed as documented in resident note. I have concurrently managed this patient with the resident above. The assessment and plan were formulated indiscussion with me at the time of the visit. I have reviewed the note and agree with the documentation. Please see for details of History (PMH/MEDS/ALLS/SOC/FAM/ROS), physical exam, diagnostic studies,assessment and plan. Patient left before evaluation could be completed or instructions could be provided Karen Wilder MD 04/18/14 0059 Lesa Anderson RN - 04/10/2014 2:37 PM EDT Pt referred to ED from [facility], his surgery was cancelled, a hydrocele repair, it was noted he had a boil ?infected in his groin, ? Needing anbitiotics or admission. Dr Stern spoke w/ ED MD here. documented in this encounter Miscellaneous Notes Miscellaneous - Provider, Scanning - 04/10/2014 10:24 PM EDT ED Triage - Gabriella Burger RN - 04/10/2014 3:32 PM EDT Pt sent down from surgical center for evaluation for cyst in R groin region. Pt sts he was due for hydrocele surgery and they found cyst. Pt denies any pain or discomfort at this time. R groin small ruputured cyst with serosanguinous fluid in surrounding area found. Pt is PWD in no acute distress. Pt has had a renal transplant. documented in this encounter Plan of Treatment Upcoming Encounters Date Type Specialty Care Team Description 05/26/2022 Office Visit Otolaryngology Ricardo Panda PA [facility] [place] [address] [place], [place] [address] (Wo rk) 06/02/2022 Infusion Hematology and Oncology 06/16/2022 Infusion Hematology and Oncology 06/21/2022 Office Visit Neurology Tyler Rojas MD [facility] Neurology [place], [place] [phone] (Wo rk) 06/30/2022 Infusion Hematology and Oncology 07/14/2022 Infusion Hematology and Oncology 07/28/2022 Infusion Hematology and Oncology 08/11/2022 Infusion Hematology and Oncology 11/04/2022 Office Visit Rheumatology Dante Freedman PA [facility] RHEUMATOLOGY [place], [place] [address] (Wo rk) documented as of this encounter Procedures Procedure Name Priority Date/Time Associated Diagnosis Comme nts POCT GLUCOSE Routine 04/10/2014 3:29 PM Results f or this EDT procedure are i n the results section . documented in this encounter Results (ABNORMAL) POCT Glucose (04/10/2014 3:29 PM EDT) athologist Signature POC Glucose 243 (H) 60 - 199 CERNER mg/dL [facility] Comment: Supplemental ranges: <140 mg/dL before meals <180 mg/dL all other times of the day Specimen Anatomical Collection Method Collection Time Receive d Time (Source) Location / / Volume Laterality Blood specimen 04/10/2014 3:29 PM 014 3:29 (specimen) EDT PM EDT Emergency Dept POINT OF CARE TEST ORDERABLE S Performing Organization Address City/State/[place] [address] [facility] documented in this encounter Visit Diagnoses Diagnosis Carbuncle Carbuncle and furuncle of unspecified si te documented in this encounter Care Teams Select [employer]er Relationship Specialty Start Date End Date Violetta Sanford MD PCP - General 04/02/14 [address] [place] [address] documented as of this encounter
--- OUTSIDE RECORDS SUMMARY | 2022-05-24 10:55 | XMS_ITS | Encounter Summary ---
:1955 Author Organization [facility] Address [facility] [address] [place] [id number] Care Team Providers Name Role Phone Violetta Sanford MD Primary Care Provider Encounter Details Date Type Department Care Team Description 05/15/2014 Follow-Up Neurology at [facility] Angel Boyd MD Type II or unspecified type diabetes fredo litus with neurological manifestations, uncontrolled(250.62); [facility] Typ e 2 diabetes mellitus with diabetic neuropathy; Drive Tremor, essential; [place] [address] NEUROLOGY DEPT. Tremor/tics; [phone] [place], [place] [address] Diabetes mellitus with neuropathy [phone] (Wo rk) Social History Tobacco Use Types [...] Sign Reading Time Taken Comments Blood Pressure 151/58 05/15/2014 9:55 AM EDT Pulse 63 05/15/2014 9:55 AM EDT Temperature - - Respiratory Rate - - Oxygen Saturation - - Inhaled Oxygen Concentration - - Weight 146.1 kg (322 lb) 05/15/2014 9:55 AM EDT Height 190.5 cm (6' 3) 05/15/2014 9:55 AM EDT Body Mass Index 40.25 05/15/2014 9:55 AM EDT documented in this encounter Progress Notes Angel Boyd MD - 05/15/2014 11:00 AM EDT COPY: Violetta Sanford M.D. I saw Leroy Torres today in followup in the company of his mother. He was scheduled to have surgery on his hydrocele earlier this year, but when he was getting his physical examination prior to surgery it was noted that he had a large carbuncle in the groin. This was already draining. It is reduced to about half of the size that it was, but it is still present. Unfortunately, he had to sit in the emergency room for five and a half hours waiting to be told that he should put warm compresses on it and wait for it to heal. At this point, he is going to postpone the hydrocele surgery until after the winter is over, given the distances that they have to travel in what might be bad weather. With regard to tremor, he is not a lot worse but perhaps slightly worse. There is a very limited array of medications that he would tolerate, given his renal failure. I think the safest thing would be to simply go up by one tablet per day on his gabapentin, from five a day in divided dose to six a day, divided into two doses. We will try this and see how things go. Fifteen minutes of our 25-minute visit today were in supportive counseling and therapeutic planning. I will see him back in followup in the springtime. documented in this encounter Plan of Treatment Upcoming Encounters Date Type Specialty Care Team Description 05/26/2022 Office Visit Otolaryngology Ricardo Panda PA [facility] [address] [place] [address] (Wo rk) 06/02/2022 Infusion Hematology and Oncology 06/16/2022 Infusion Hematology and Oncology 06/21/2022 Office Visit Neurology Tyler Rojas MD [facility] Neurology [place], [place] [phone] (Wo rk) 06/30/2022 Infusion Hematology and Oncology 07/14/2022 Infusion Hematology and Oncology 07/28/2022 Infusion Hematology and Oncology 08/11/2022 Infusion Hematology and Oncology 11/04/2022 Office Visit Rheumatology Dante Freedman PA [facility] RHEUMATOLOGY [place], [place] [address] (Wo rk) documented as of this encounter Visit Diagnoses Diagnosis Type II or unspecified type diabetes fredo litus with neurological manifestations, uncontrolled(250.62) Type II or unspecified type diabetes fredo litus with neurological manifestations, uncontrolled Type 2 diabetes mellitus with diabetic n europathy Type II or unspecified type diabetes fredo litus with neurological manifestations, not stated as uncontrolled Tremor, essential Essential and other specified forms of t remor Tremor/tics Abnormal involuntary movements Diabetes mellitus with neuropathy Type II or unspecified type diabetes fredo litus with neurological manifestations, not stated as uncontrolled documented in this encounter Care Teams Jig And Fixture Maker Relationship Specialty Start Date End Date Violetta Sanford MD PCP - General 04/02/14 [facility] [address] [place] [address] documented as of this encounter
--- OUTSIDE RECORDS SUMMARY | 2022-05-24 10:55 | XMS_ITS | Encounter Summary ---
:1955 Author Organization [facility] [address] Care Team Providers Name Role Phone Violetta Sanford MD Primary Care Provider Reason for Visit Reason Onset Date Comments Advice Only 04/04/2014 Encounter Details Date Type Department Care Team Description 04/04/2014 Telephone Urology at [facility] Milton Williamson MD Advice Only [facility] Giovana tyler [facility] [address] UROLOGY DEPT [phone] [place], [place] [address] (Wo rk) Social History Tobacco [...] this encounter Miscellaneous Notes Telephone Encounter - Milton Williamson MD - 04/04/2014 4:51 PM EDT Mr. Torres called to inquire whether he should hold any other medications in addition to aspirin prior to his hydrocelectomy next week. I reviewed his medication list with him and did not see any other meds that should be held. I reiterated the importance of stopping aspirin now until after surgery, which he confirmed. The plan was explained in detail to the patient, who agreed. All questions were answered to the patient's satisfaction. documented in this encounter Plan of Treatment Upcoming Encounters Date Type Specialty Care Team Description 05/26/2022 Office Visit Otolaryngology Ricardo Panda PA [facility] [address] [place] [address] (Wo rk) 06/02/2022 Infusion Hematology and Oncology 06/16/2022 Infusion Hematology and Oncology 06/21/2022 Office Visit Neurology Tyler Rojas MD [facility] Neurology [place], [place] [phone] (Wo rk) 06/30/2022 Infusion Hematology and Oncology 07/14/2022 Infusion Hematology and Oncology 07/28/2022 Infusion Hematology and Oncology 08/11/2022 Infusion Hematology and Oncology 11/04/2022 Office Visit Rheumatology Dante Freedman PA [facility] RHEUMATOLOGY [place], [place] [address] (Wo rk) documented as of this encounter Visit Diagnoses Not on filedocumented in this encounter Care Teams Escrow Closer Relationship Specialty Start Date End Date Violetta Sanford MD PCP - General 04/02/14 [facility] [address] [place] [address] documented as of this encounter
--- OUTSIDE RECORDS SUMMARY | 2022-05-24 10:55 | XMS_ITS | Encounter Summary ---
:1955 Author Organization [facility] [place] [address] Care Team Providers Name Role Phone Violetta Sanford MD Primary Care Provider Encounter Details Date Type Department Care Team Description 04/03/2014 Hospital Encounter Same Day Program at Diomedes Lemus MD [facility] [place] [address] [place] [address] [phone] Social History Tobacco Use Types Packs/Day Years [...] Sign Reading Time Taken Comments Blood Pressure 141/65 04/03/2014 11:16 AM EDT Pulse 57 04/03/2014 11:16 AM EDT Temperature 36.9 ??C (98.4 ??F) 04/03/2014 11:16 AM EDT Respiratory Rate 16 04/03/2014 11:16 AM EDT Oxygen Saturation 96% 04/03/2014 11:16 AM EDT Inhaled Oxygen Concentration - - Weight - - Height - - Body Mass Index - - documented in this encounter Medications at Time of Discharge Medication Sig Dispensed Refills Start Date End Date aspirin 81 mg EC tablet Take 81 mg by mouth 0 daily. CELLCEPT 250 mg Take 2 capsules by 120 capsule 11 02/25/2014 03/08/2015 capsuleIndications: mouth 2 times daily. Transplanted kidney Kidney Transplant V42.0. Transplant Date; 02-29-08 PROGRAF 1 mg capsule Take 1 capsule by 60 capsule 11 02/26/20 14 03/08/2015 mouth 2 times daily. KIDNEY TRANSPLANT V42.0. TRANSPLANT DATE - 02/29/2008 insulin aspart (NOVOLOG Inject 50-60 Units 75 mL 11 12/2404/19/2014 FLEXPEN) pen injection subcutaneously 4 times [...] pen injection subcutaneously 2 times daily. Insulin [place], Please use as 450 each 4 11/07/201304/19 [...] capsule daily. documented as of this encounter H&P Notes Marco Lemus MD - 04/03/2014 11:35 AM EDT No change from prior H&P. Proceed w/ L hydrocelectomy. documented in this encounter Miscellaneous Notes Miscellaneous - ProviderKody - 04/03/2014 2:46 PM EDT documented in this encounter Plan of Treatment Upcoming Encounters Date Type Specialty Care Team Description 05/26/2022 Office Visit Otolaryngology Ricardo Panda PA [facility] [place], [place] [address] (Wo gregg) 06/02/2022 Infusion Hematology and Oncology 06/16/2022 Infusion Hematology and Oncology 06/21/2022 Office Visit Neurology Tyler Rojas MD [facility] Dr [place] [phone] (Wo rk) 06/30/2022 Infusion Hematology and Oncology 07/14/2022 Infusion Hematology and Oncology 07/28/2022 Infusion Hematology and Oncology 08/11/2022 Infusion Hematology and Oncology 11/04/2022 Office Visit Rheumatology Dante Freedman PA [facility] RHEUMATOLOGY [place] [address] (Wo rk) documented as of this encounter Procedures Procedure Name Priority Date/Time Associated Diagnosis Comme nts POCT GLUCOSE Routine 04/03/2014 11:22 AM Results for this EDT procedure are i n the results section . documented in this encounter Results (ABNORMAL) POCT Glucose (04/03/2014 11:22 AM EDT) athologist Signature POC Glucose 290 (H) 60 - 199 CERNER mg/dL [facility] Comment: Supplemental ranges: <140 mg/dL before meals <180 mg/dL all other times of the day Specimen Anatomical Collection Method Collection Time Receive d Time (Source) Location / / Volume Laterality Blood specimen 04/03/2014 11:22 4 (specimen) AM EDT 11:22 AM EDT Marco Lemus MD POINT OF CARE TEST ORDERABLE S Performing Organization Address City/State/[place] [address] [facility] documented in this encounter Visit Diagnoses Not on filedocumented in this encounter Administered Medications Inactive Administered Medications - up to 3 most recent administrations Medication Order MAR Action Action Date Dose Rate Site lactated ringers infusion New Bag 04/03/2014 11:25 AM 1,000 mLs 1 00 mL/hr 1,000 mL EDT 1,000 mL, at 100 mL/hr, Intravenous, CONTINUOUS, Starting on Tue04/03/14 at 1130, Until Tue04/03/14 at 1404, Day of Surgery (Day of Procedure) documented in this encounter Active and Recently Administered Medications Times are shown in EDT. Continuous Medication Order 04/01/2014 04/02/2014 04/03/2014 lactated ringers infusion 1,000 mL (CANCELED) 1125 (New Bag - Provider: Yasmin Raza RN) 1,000 mL, at 100 mL/hr, Intravenous, CON TINUOUS, Starting Tue04/03/14 at 1130, Until Tue04/03/14 at 1404, Day of Surgery (Day of Procedure) documented in this encounter Care Teams Janitorial Services Supervisor Relationship Specialty Start Date End Date Violetta Sanford MD PCP - General 04/02/14 [address] [facility] [address] [place] [address] documented as of this encounter
--- OUTSIDE RECORDS SUMMARY | 2022-05-24 10:55 | XMS_ITS | Encounter Summary ---
:1955 Author Organization [facility] [place] [address] Care Team Providers Name Role Phone Dc Ibanez MD Primary Care Provider Reason for Visit Reason Comments Diabetes Encounter Details Date Type Department Care Team Description 11/07/2013 Office Visit Endocrinology at [facility] Donell Hernandez, Type II or unspecified type diabetes mellitus with neurological manifestations, uncontrolled(250.62); [facility] Diabetes mellitus; [facility] Type 2 diabetes mellitus [place] [address] CENTER [phone] [address] [place] [address] Social History Tobacco Use Types Packs/Day Years [...] Sign Reading Time Taken Comments Blood Pressure 137/60 11/07/2013 1:25 PM EDT Pulse 59 11/07/2013 1:25 PM EDT Temperature - - Respiratory Rate - - Oxygen Saturation - - Inhaled Oxygen Concentration - - Weight 148.7 kg (327 lb 12.8 oz) 11/07/2013 1:25 PM EDT Height - - Body Mass Index 38.87 06/16/2013 2:10 AM EST documented in this encounter Patient Instructions Patient InstructionsDonell Hernandez MD - 11/07/2013 1:54 PM EDT Recent Results (from the past 24 hour(s)) HEMOGLOBIN A1C Component Value Range Hemoglobin A1C 9.2 (*) <=5.6 % Est Avg Gluc 217 CREATININE Component Value Range Creatinine 1.59 (*) 0.80 - 1.50 mg/dL Estimated GFR 45 (*) >=60 This is much worse diabetes control and somewhat worse kidney function. I increased the levemir to 60 at night, stay at 55 in the am. The martínez here is to exercise regularly. documented in this encounter Progress Notes Donell Hernandez MD - 11/07/2013 1:15 PM EDT Year of diagnosis: Regimen ____ [...] until ___/___/___ We are consulted by Dr Jenkins to evaluate and treat DM2 in the setting of renal transplant with somediminution in function, severe retinopathy that has been treated. Bilateral bka R and morbid obesity. From jul 2013: 1)DM2- improved diabetes control despite the holidays - does well with this regimen and may be more active as he hopes to obtain a piece of exercise equipment that would exercise arms and upper legs. 2) bilateral bka- making progress on mobility 3) retinopathy- under care, has been stable 4) renal transplant- stable 5) prevention Stopped liraglutide due chronic back ache relieved when he stopped Had a viral syndrome with vomiting and cough in joe Thinks he is losing weight Walks with cane ! Has permanent prosthesis New dx of COPD by pulmonary function tests Not doing much yet Regimen Victoza stopped Basal levemir 55 bid Bolus aspart 30-35 units per meal tid hbgm Bid fbs <200 5Pm <250, never 300 4 x a day Before meals and bedtime Hypo none Diet B 2 donuts Sn L blt at home Sn D steak and salad potatoes Sn chips Exercise second prosthesis 2 h a day, goes to PT 2x a week complications Eyes prior laser therapy Feet Bilateral BKA, working on second prosthesis Kidneys transplant autonomic: no gastroparesis bladder hypo unaware tachycardia cardiac no chest pain on exertion No shortness of breath at rest No history of stent cabg chf prevention: last eye exam: Nov 22 2013 last microalbumin :2012 last Cr:today last lipid panel:2011 regular binder technician:no special shoes:no flu shot :yes pneumovax: 2012 acei yes Asa Yes statin yes Current Outpatient Prescriptions Medication Sig Dispense Refill ??? insulin detemir (LEVEMIR) pen injection Inject 55 Units subcutaneously 2 times daily. ??? Insulin [place], Disposable, 32 x 5/32 Ndle 1 Device by [facility].(Non-Drug; Combo Route) route 6 times daily. 600 each 3 ??? propranolol (INDERAL) 80 mg tablet Take 1 tablet by mouth every 6 hours. ??? tacrolimus (PROGRAF) 1 mg/2 mL Botl Take 2 mLs by mouth 2 times daily. ??? insulin aspart (NOVOLOG) pen injection Inject 0-20 Units subcutaneously 3 times daily (with meals). 3 mL ??? gabapentin (NEURONTIN) 300 mg capsule Take by mouth 2 times daily. 2 tabs in the AM and 3 tabs in the PM ??? Insulin [place]wald, Disposable, (BD INSULIN PEN NEEDLE UF SHORT) 31 X 5/16 Ndle by Other route. 1box = 100 insulin PEN needles. 1 Box 11 ??? MULTIVITS-MINERALS/FA/LYCOPENE (ONE-A-DAY MEN'S MULTIVITAMIN ORAL) Take by mouth daily. ??? Insulin Syringe-Needle U-100 (BD INSULIN SYRINGE ULT-FINE II) 1 mL 31 x 5/16 Syrg 1 Device by [facility].(Non-Drug; Combo Route) route 2 times daily. 200 Device 3 ??? CELLCEPT 250 mg capsule Take 2 [...] mg by mouth daily. ??? [DISCONTINUED] insulin detemir (LEVEMIR) pen injection Inject 55 Units subcutaneously 2 times daily. 105 mL 3 ??? miconazole (MICOTIN) 2 % powder Apply topically 2 times daily. 70 g ??? [DISCONTINUED] insulin aspart (NOVOLOG) pen injection Inject 3-12 Units subcutaneously every 4 hours. 3 mL ??? fluticasone (FLONASE) 50 mcg/actuation nasal spray 2 sprays by Each Nare route as needed. 64 g 11 ??? glucagon, human recombinant, 1 mg/mL injection Inject 1 mL into the muscle as needed. 1 each 3 BP 137/60, pulse 59, wt 237 Appearance: looks well, joking wt Change stable eyes: no retinopathy seen by green light ext: no pitting edema Bilateral bka with prostheses posterior tibial-yes neuro: gait is normal Recent Results (from the past 24 hour(s)) HEMOGLOBIN A1C Component Value Range Hemoglobin A1C 9.2 (*) <=5.6 % Est Avg Gluc 217 CREATININE Component Value Range Creatinine 1.59 (*) 0.80 - 1.50 mg/dL Estimated GFR 45 (*) >=60 Ref. Range 08/29/2012 10:49 11/29/2012 11:18 03/05/2013 10:05 08/06/2013 12:52 11/07/2013 12:15 Hemoglobin A1C Latest Range: <=5.6 % 7.7 (H) 6.8 (H) 8.0 (H) 7.5 (H) 9.2 (H) Ref. Range 06/22/2013 04:00 06/23/2013 06:08 06/24/2013 08:08 06/26/2013 05:45 11/07/2013 12:15 Creatinine Latest Range: 0.80-1.50 mg/dL 1.15 1.15 1.12 1.16 1.59 (H) 1) DM1 - his control is much [...] - he has tried to remain active. documented in this encounter Plan of Treatment Upcoming Encounters Date Type Specialty Care Team Description 05/26/2022 Office Visit Otolaryngology Ricardo Panda PA [facility] [place] [address] (Wo rk) 06/02/2022 Infusion Hematology and Oncology 06/16/2022 Infusion Hematology and Oncology 06/21/2022 Office Visit Neurology Tyler Rojas MD [facility] Dr [address] [place], [place] [phone] (Wo rk) 06/30/2022 Infusion Hematology and Oncology 07/14/2022 Infusion Hematology and Oncology 07/28/2022 Infusion Hematology and Oncology 08/11/2022 Infusion Hematology and Oncology 11/04/2022 Office Visit Rheumatology Dante Freedman PA [facility] RHEUMATOLOGY [place], [place] [address] (Wo rk) documented as of this encounter Procedures Procedure Name Priority Date/Time Associated Diagnosis Comme nts CREATININE STAT 11/07/2013 12:15 PM Type II or unspecifie d Results for this EDT type diabetes mellitus proce dure are in with neurological the result s manifestations, section. uncontrolled(250.62) HEMOGLOBIN A1C STAT 11/07/2013 12:15 PM Type II or unspecif ied Results for this EDT type diabetes mellitus proce dure are in with neurological the result s manifestations, section. uncontrolled(250.62) documented in this encounter Results (ABNORMAL) Creatinine (01/18/2014 12:29 PM EDT) athologist Signature Creatinine 1.61 (H) 0.80 - CERNER 1.50 mg/dL [facility] Comment: Please note that the pediatric reference intervals supplied above were not validated at [facility]. Results from pediatri c patients should be [...] the following links into your internet browser. [email or web address] [email or web address]ANYnkf Specimen Anatomical Collection Method Collection Time Receive d Time (Source) Location / / Volume Laterality Blood specimen 01/18/2014 12:29 01/18/201 4 (specimen) PM EDT 12:32 PM EDT Resulting Agency Comment Spec In Lab Donell Hernandez MD CHEMISTRY ORDERABLES Performing Organization Address City/State/ZIP Code Phon hansel [place] [id number] [facility] (ABNORMAL) Hemoglobin A1c (01/18/2014 12:29 PM EDT) Analysis Performed At [facility] Time Signature Hemoglobin A1C 8.4 (H) <=5.6 % [facility] Comment: Reference Range: 4.3 ? 5.6% 5.7 [...] 36: Suppl. 1, S67-74 Est Avg Gluc 194 mg/dL [facility] Comment: eAG equivalents for HbA1c percentages: HbA1c(%) ?eAG(mg/dL) 6.0 ?126 6.5 ?140 7.0 ?154 7.5 ?169 8.0 ?183 8.5 ?197 9.0 ?212 9.5 ?226 10.0 ? 240 Limitations: The eAG calculation has not been validated on women, individuals below 18 years old and above 70 years old, and individuals with hemoglobinopathies. Additional resources are available on e ADA website: http://tinyurl.com/[facility]ANYadacalc Scooby MALDONADO, Nba J, Sydnee R, et al. ??Tr anslating the A1C assay into estimated average glucose values. ??Diabetes Care 2008:31(8):4092-4817. Specimen Anatomical Collection Method Collection Time Receive d Time (Source) Location / / Volume Laterality Blood specimen 01/18/2014 12:29 4 (specimen) PM EDT 12:32 PM EDT Resulting Agency Comment Spec In Lab Donell Hernandez MD CHEMISTRY ORDERABLES Performing Organization Address City/[facility] [address]/ZIP Code Phon e Number [address] [facility] (ABNORMAL) Creatinine (11/07/2013 12:15 PM EDT) athologist Signature Creatinine 1.59 (H) 0.80 - CERNER 1.50 mg/dL [facility] Comment: Please note that the pediatric reference intervals supplied above were not validated at [facility]. Results from pediatri c patients should be interpreted in conjunction to the patient's age, height and muscle mass. Estimated GFR 45 (L) >=60 [facility] Comment: This estimated GFR (eGFR) value [...] the following links into your internet browser. http://www.nkdep.nih.gov/lab-evaluation. shtml http://www.kidney.org/professionals/ Specimen Anatomical Collection Method Collection Time Receive d Time (Source) Location / / Volume Laterality Blood specimen 11/07/2013 12:15 4 (specimen) PM EDT 12:18 PM EDT Resulting Agency Comment Spec In Lab Donell Hernandez MD CHEMISTRY ORDERABLES Performing Organization Address City/[facility] [address]/ZIP [place] [address] [facility] (ABNORMAL) Hemoglobin A1c (11/07/2013 12:15 PM EDT) Analysis Performed At [facility] Time Signature Hemoglobin A1C 9.2 (H) <=5.6 % [facility] Comment: As of 2013 the methodology for Hem oglobin A1c testing has changed. This change is accompanied by a new interpret roderick statement and flags. Please review the new interpretive statement and conta ct Dr. Fitzpatrick or Dr. Sears with questions. Reference Range: 4.3 ? 5.6% 5.7 ? [...] 36: Suppl. 1, S67-74 Est Avg Gluc 217 mg/dL [facility] Comment: eAG equivalents for HbA1c percentages: HbA1c(%) ?eAG(mg/dL) 6.0 ?126 6.5 ?140 7.0 ?154 7.5 ?169 8.0 ?183 8.5 ?197 9.0 ?212 9.5 ?226 10.0 ? 240 Limitations: The eAG calculation has not been validated on women, individuals below 18 years old and above 70 years old, and individuals with hemoglobinopathies. Additional resources are available on e ADA website: ??http://professional.diabetes.org/gluc osecalculator.aspx Sriram Meltonenen J, Sydnee R, et al. ??Tr anslating the A1C assay into estimated average glucose values. ??Diabetes Care 2008:31(8):1725-1599. Specimen Anatomical Collection Method Collection Time Receive d Time (Source) Location / / Volume Laterality Blood specimen 11/07/2013 12:15 04 4 (specimen) PM EDT 12:18 PM EDT Resulting Agency Comment Spec In Lab Donell Hernandez MD CHEMISTRY ORDERABLES Performing Organization Address City/State/[place] [address] [facility] documented in this encounter Visit Diagnoses Diagnosis Type II or unspecified type diabetes fredo litus with neurological manifestations, uncontrolled(250.62) Type II or unspecified type diabetes fredo litus with neurological manifestations, uncontrolled Diabetes mellitus Type II or unspecified type diabetes fredo litus without mention of complication, not stated as uncontrolled Type 2 diabetes mellitus with diabetic n europathy Type II or unspecified type diabetes fredo litus with neurological manifestations, not stated as uncontrolled documented in this encounter Care Teams Skin Carver Relationship Specialty Start Date End Date Dc Ibanez MD PCP - General 04/02/13 04/01/[address] [facility] [address] [place] [address] documented as of this encounter
--- OUTSIDE RECORDS SUMMARY | 2022-05-24 10:55 | XMS_ITS | Encounter Summary ---
:1955 Author Organization [facility] [place] [address] Care Team Providers Name Role Phone Violetta Sanford MD Primary Care Provider Encounter Details Date Type Department Care Team Description 04/03/2014 Surgery Main Operating Room Marco Lemus MD Not Performed [facility] HYDROCELECTOMY, [facility] DR CERRATO (WRVU 5.45) [facility] [place] [address] [place] [id number] [phone] Social History Tobacco Use Types Packs/Day Years [...] pen injection subcutaneously 2 times daily. Insulin [place], Please use as 450 each 4 11/07/201304/19 Disposable, (BD INSULIN directed. 3 month PEN NEEDLE UF SHORT) 31 refill = 450 PEN X 16 needles. NdleIndications: Diabetes mellitus, Type II or [...] this encounter Miscellaneous Notes Miscellaneous - Provider, Kody - 04/03/2014 2:46 PM EDT documented in this encounter Plan of Treatment Upcoming Encounters Date Type Specialty Care Team Description 05/26/2022 Office Visit Otolaryngology Ricardo Panda PA [facility] [address] [place], [place] [address] (Wo rk) 06/02/2022 Infusion Hematology and Oncology 06/16/2022 Infusion Hematology and Oncology 06/21/2022 Office Visit Neurology Tyler Rojas MD [facility] Dr [place], [place] [phone] (Wo rk) 06/30/2022 Infusion Hematology and Oncology 07/14/2022 Infusion Hematology and Oncology 07/28/2022 Infusion Hematology and Oncology 08/11/2022 Infusion Hematology and Oncology 11/04/2022 Office Visit Rheumatology Dante Freedman PA [facility] DR [place], [place] [address] (Wo rk) documented as of this encounter Procedures Procedure Name Priority Date/Time Associated Diagnosis Comme nts POCT GLUCOSE Routine 04/03/2014 11:22 AM Results for this EDT procedure are i n the results section . documented in this encounter Results (ABNORMAL) POCT Glucose (04/03/2014 11:22 AM EDT) P athologist Signature POC Glucose 290 (H) 60 - 199 CERNER mg/dL [facility] Comment: Supplemental ranges: <140 mg/dL before meals <180 mg/dL all other times of the day Specimen Anatomical Collection Method Collection Time Receive d Time (Source) Location / / Volume Laterality Blood specimen 04/03/2014 11:22 4 (specimen) AM EDT 11:22 AM EDT Marco Lemus MD POINT OF CARE TEST ORDERABLE S Performing Organization Address City/State/[place] [address] [facility] documented in this encounter Visit Diagnoses [...] Procedure) documented in this encounter Care Teams Occupational Health And Safety Officer Relationship Specialty Start Date End Date Violetta Sanford MD PCP - General 04/02/14 [address] [place] [address] documented as of this encounter
--- OUTSIDE RECORDS SUMMARY | 2022-05-24 10:55 | XMS_ITS | Encounter Summary ---
:1955 Author Organization [facility] Address [facility] [address] [place] [id number] Care Team Providers Name Role Phone Violetta Sanford MD Primary Care Provider Encounter Details Date Type Department Care Team Description 10/31/2014 Follow-Up Neurology at [facility] Angel Boyd MD Tremor, essential; [facility] Typ e 2 diabetes mellitus with diabetic neuropathy; Drive DR Type II or unspecified type diabetes fredo litus with neurological manifestations, uncontrolled; [place] [address] NEUROLOGY DEPT. Tremor/tics [phone] [place] [id number] (Wo rk) Social History Tobacco Use Types [...] Sign Reading Time Taken Comments Blood Pressure 166/74 10/31/2014 10:35 AM EDT Pulse 67 10/31/2014 10:35 AM EDT Temperature - - Respiratory Rate - - Oxygen Saturation - - Inhaled Oxygen Concentration - - Weight 149.7 kg (330 lb) 10/31/2014 10:35 AM EDT Height 194.3 cm (6' 4.5) 10/31/2014 10:35 AM EDT per p atient Body Mass Index 39.65 10/31/2014 10:35 AM EDT documented in this encounter Progress Notes Angel Boyd MD - 10/31/2014 11:22 AM EDT COPY: Violetta Sanford M.D. I saw Leroy Torres today in followup. Fifteen minutes of our 25-minute visit were in supportive counseling and therapeutic planning. Things have gone reasonably well for him over the winter, except that he had an unexpected trip shelter to the emergency room a week ago or so when he started to choke on some food. Before they arrived at the emergency room, he burped and swallowed the food. There was little to do after that, except go home. With regard to his usual medical issues, the decision has been made on his part to postpone any surgical approach to his hydrocele, which frankly has settled down symptomatically. Tremor is really no worse and he would like to continue the Inderal and gabapentin. I renewed those via e-fax to his pharmacy. He is working hard with Dr. Malhotra on controlling his diabetes and there have been some changes made in that treatment recently, as noted in the Dr. Malhotra's excellent progress note. Mr. Torres is also going to be fitted for some new prostheses because the ones he has do not seem to be appropriate to the nature of his stumps. Little by little he is making progress. I do not see any acute issues currently. I will see him back in followup. documented in this encounter Plan of Treatment Upcoming Encounters Date Type Specialty Care Team Description 05/26/2022 Office Visit Otolaryngology Ricardo Panda PA [facility] [address] [place] [address] (Wo rk) 06/02/2022 Infusion Hematology and Oncology 06/16/2022 Infusion Hematology and Oncology 06/21/2022 Office Visit Neurology Tyler Rojas MD [facility] [address] [place] [phone] (Wo rk) 06/30/2022 Infusion Hematology and Oncology 07/14/2022 Infusion Hematology and Oncology 07/28/2022 Infusion Hematology and Oncology 08/11/2022 Infusion Hematology and Oncology 11/04/2022 Office Visit Rheumatology Dante Freedman PA [facility] RHEUMATOLOGY [place], [place] [address] (Wo rk) documented as of this encounter Visit Diagnoses Diagnosis Tremor, essential Essential and other specified forms of t remor Type 2 diabetes mellitus with diabetic n europathy Type II or unspecified type diabetes fredo litus with neurological manifestations, not stated as uncontrolled Type II or unspecified type diabetes fredo litus with neurological manifestations, uncontrolled(250.62) Type II or unspecified type diabetes fredo litus with neurological manifestations, uncontrolled Tremor/tics Abnormal involuntary movements documented in this encounter Care Teams Glass Presser Relationship Specialty Start Date End Date Violetta Sanford MD PCP - General 04/02/14 [address] [place] [address] documented as of this encounter
--- OUTSIDE RECORDS SUMMARY | 2022-05-24 10:55 | XMS_ITS | Encounter Summary ---
:1955 Author Organization [facility] [place] [address] Care Team Providers Name Role Phone Violetta Sanford MD Primary Care Provider Encounter Details Date Type Department Care Team Description 04/03/2014 Anesthesia Event Main Operating Room Torsten Dotson MD [facility] [place] [address] [facility] Walker MD [facility] [place] [address] [facility] [place] [address] Anesthesia Record Procedure Summary Procedure Name Responsible Anesthesia Start Anesthesia Stop Anesthesiologist Time Time HYDROCELECTOMY, UNILATERAL (WRVU 5.45) (Left Scrotum) Events No events on file. No medications on file. Agents No agents on file. Blood No blood administrations on file. Lines, Drains, and Airways Type Details Placement Removal (RETIRED) Hemodialysis arteriovenous fistula; 06/16/13 1622 by Access left, forearm Purnima Larose RN Incision 12/29/21; 0806; Left; ear 12/29/21 0806 by (myringotomy) Niyah Blair RN Incision 02/09/22; 0831; Left; ear 02/09/22 0831 by Andria Flores RN documented in this encounter Social History Tobacco [...] as of this encounter OR Notes Anesthesia Preprocedure Evaluation - Torsten Santo MD - 04/02/2014 6:02 PM EDT Pre-Anesthesia Evaluation for: Leroy Torres a 58 y.o. male. Procedure(s): HYDROCELECTOMY, UNILATERAL Patient Active Problem List Diagnosis ??? Hyperlipidemia ??? Reflux esophagitis ??? COPD [...] 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ifestations No past medical history on file. Past Surgical History Procedure Date ??? Created [...] BELOW-KNEE performed by HENNA GAMINO JR at [facility] MAIN OR ??? Lap, appendectomy 06/16/2013 LAPAROSCOPIC APPENDECTOMY performed by Angel Mccann MD at [facility] MAIN OR History Substance Use Topics ??? Smoking status: Former Smoker -- 2.0 packs/day for 20 years Types: Cigarettes Quit date: 01/19/1993 ??? Smokeless tobacco: Never Used ??? Alcohol Use: Yes Comment: rare History Drug Use No Allergies Allergen Reactions ??? Penicillins Anaphylaxis ??? Iftikhar Inhibitors Cough ??? Clindamycin Hcl Rash ??? Allergenic Extracts Birch and Nut Trees, cats, dust, pollen Medications: MAR and/or home medications have been reviewed. Physical Exam: There were no vitals filed for this visit. There is no height or weight on file to calculate BMI. Airway Assessment: Mallampati: IV TM distance: >3 FB Neck ROM: full Cardiovascular Assessment: Pulmonary Assessment: PE comment: Breath sounds clear albeit distant. Dental Assessment: (+) upper dentures Comment: Edentulous lower. [facility] Assessment: Anesthesia Plan: ASA 3 spinal, 58 y/o 146.7kg male scheduled for left hydrocelectomy. Medical history includes IDDM, CKD s/p renal transplant in 2007 (immunosuppression - cellcept/prograf), COPD (stage 3 per notes; no PFTs on file), HTN, HLD, GERD. Patient is s/p L and R BKAs. Laparoscopic appendectomy in 2012 w/ post-operative ICU stay. Airway - mask ventilation w/ OPA and 2-handed technique; grade 1 view w/ glidescope. Labs 02/25/14 - Hgb 12.4, Plt 180. K 4.5, Cr 1.5, eGFR 45 Hansa addendum: Discussed R/B/As. Patient amenable to spinal with GA backup. *Case cancelled per surgery because of aspirin intake. Region - Other Informed Consent: Anesthetic plan and risks discussed with patient and mother. Plan discussed with resident and attending. [facility]. Assessment: documented in this encounter Plan of Treatment Upcoming Encounters Date Type Specialty Care Team Description 05/26/2022 Office Visit Otolaryngology Ricardo Panda PA [facility] Dr [place], [place] [address] (Wo rk) 06/02/2022 Infusion Hematology and Oncology 06/16/2022 Infusion Hematology and Oncology 06/21/2022 Office Visit Neurology Tyler Rojas MD [facility] Neurology [place], [place] [phone] (Wo rk) 06/30/2022 Infusion Hematology and Oncology 07/14/2022 Infusion Hematology and Oncology 07/28/2022 Infusion Hematology and Oncology 08/11/2022 Infusion Hematology and Oncology 11/04/2022 Office Visit Rheumatology Dante Freedman PA [facility] RHEUMATOLOGY [place], [place] [address] (Wo rk) documented as of this encounter Visit Diagnoses Not on filedocumented in this encounter Care Teams Wringer And Setter Relationship Specialty Start Date End Date Violetta Sanford MD PCP - General 04/02/14 [address] [place] [address] documented as of this encounter
--- OUTSIDE RECORDS SUMMARY | 2022-05-24 10:55 | XMS_ITS | Encounter Summary ---
:1955 Author Organization [facility] Address [facility] [address] [place] [phone] Care Team Providers Name Role Phone Dc Ibanez MD Primary Care Provider Reason for Visit Reason Comments Diabetes Encounter Details Date Type Department Care Team Description 08/06/2013 Office Visit Endocrinology at [facility] Donell Hernandez, Type II or unspecified type diabetes mellitus with neurological manifestations, uncontrolled (Primary Dx); [facility] S/P bilateral BKA (below knee amputation ); [facility] History of renal transplant; [place] [address] [place] [address] DR Marin; [phone] ENDOCRINOLOGY Morbid obesity DEPT. [place] [address] Social History Tobacco Use Types Packs/Day Years [...] Reading Time Taken Comments Blood Pressure 132/46 08/06/2013 1:55 PM EST Pulse 66 08/06/2013 1:55 PM EST Temperature - - Respiratory Rate - - Oxygen Saturation - - Inhaled Oxygen Concentration - - Weight 148.7 kg (327 lb 12.8 oz) 08/06/2013 1:55 PM EST Height - - Body Mass Index 38.87 06/16/2013 2:10 AM EST documented in this encounter Patient Instructions Patient InstructionsDonell Hernandez MD - 08/06/2013 2:32 PM EST Recent Results (from the past 24 hour(s)) HEMOGLOBIN A1C Component Value Range Hemoglobin A1C 7.5 (*) <=5.6 % Est Avg Gluc 169 This is very good diabetes control and we made no changes documented in this encounter Progress Notes Donell Hernandez MD - 08/06/2013 2:03 PM EST Year of diagnosis: Regimen ____ [...] treated. Bilateral bka R and morbid obesity. Thinks he is losing weight Walks with cane ! Plans to start an online college course in [employer] next month Regimen Victoza stopped Basal levemir 55 bid Bolus aspart 30-35 units per meal tid hbgm Bid fbs <150 5Pm <250, never 3090 4 x a day Before meals and bedtime Hypo Got down to 56, no symptoms Diet Working with dietitian B 2 pb toast Sn L salad 5 breadsticks 1/2 sl pizza Sn D veg w cheesesause Sweet potato Sausage 2 oz Sn chips Exercise second prosthesis 2 h a day, goes to PT 2x a week complications Eyes prior laser therapy Feet Bilateral BKA, working on second prosthesis Kidneys transplant autonomic: no gastroparesis bladder hypo unaware tachycardia cardiac no chest pain on exertion No shortness of breath at rest No history of stent cabg chf prevention: last eye exam: May 2013 last microalbumin :2011 last Cr:today last lipid panel:2011 regular admitting representative:no special shoes:no flu shot :yes pneumovax: 2011 acei yes Asa Yes statin yes Vitals 08/06/2013 BP 132/46 BP Location Patient Position Pulse 66 Temp Temp src Resp Height to cm. Height in inches Weight (Vietnamese) 327 lbs 13 oz Weight (Metric) 148.7 kg Appearance: Looks well wt Change Not done, he thinks his weight is stable eyes: old retinopathy seen by green light ext: bilateral bka pulses in feet : dorsalis pedis-yes posterior tibial-yes neuro: gait is very unsteady in transfer from chair to exam table but he is able to do it Recent Results (from the past 24 hour(s)) HEMOGLOBIN A1C Component Value Range Hemoglobin A1C 7.5 (*) <=5.6 % Est Avg Gluc 169 Results for LEROY DAILEY Sania ( ) as of 08/06/2013 14:05 Ref. Range 06/28/2012 08:49 08/29/2012 10:49 11/29/2012 11:18 03/05/2013 10:05 08/06/2013 12:52 Hemoglobin A1C Latest Range: <=5.6 % 8.4 (H) 7.7 (H) 6.8 (H) 8.0 (H) 7.5 (H) 1)DM2- improved diabetes control despite the holidays - does well with this regimen and may be more active as he hopes to obtain a piece of exercise equipment that would exercise arms and upper legs. 2) bilateral bka- making progress on mobility 3) retinopathy- under care, has been stable 4) renal transplant- stable 5) prevention documented in this encounter Plan of Treatment Upcoming Encounters Date Type Specialty Care Team Description 05/26/2022 Office Visit Otolaryngology Ricardo Panda PA [facility] Dr [place], [place] [address] (Wo rk) 06/02/2022 Infusion Hematology and Oncology 06/16/2022 Infusion Hematology and Oncology 06/21/2022 Office Visit Neurology Tyler Rojas MD [facility] Neurology [place], [place] [phone] (Wo rk) 06/30/2022 Infusion Hematology and Oncology 07/14/2022 Infusion Hematology and Oncology 07/28/2022 Infusion Hematology and Oncology 08/11/2022 Infusion Hematology and Oncology 11/04/2022 Office Visit Rheumatology Dante Freedman PA [facility] RHEUMATOLOGY [place], [place] [address] (Wo rk) documented as of this encounter Procedures Procedure Name Priority Date/Time Associated Diagnosis Comme nts HEMOGLOBIN A1C STAT 08/06/2013 12:52 PM Type II or unspecif ied Results for this EST type diabetes mellitus proce dure are in with neurological the result s manifestations, section. uncontrolled documented in this encounter Results (ABNORMAL) Creatinine (11/07/2013 12:15 PM EDT) athologist Signature Creatinine 1.59 (H) 0.80 - DELLANER 1.50 mg/dL [facility] Comment: Please note that the pediatric reference intervals supplied above were not validated at [facility]. Results from pediatri c patients should be interpreted in conjunction to the patient's age, height and muscle mass. Estimated GFR 45 (L) >=60 HOLLI Ramirez Comment: This estimated [...] Organization Address City/State/ZIP Code Phon e Number [place] [phone] [address] [facility] ([facility]NORMAL) Hemoglobin A1c (11/07/2013 12:15 PM EDT) Analysis Performed At [facility] Time Signature Hemoglobin A1C 9.2 (H) <=5.6 % [facility] Comment: As of 2013 the methodology [...] Mellitus, Diabetes Care 2013; 36: Suppl. 1, S67-51 Est Avg Gluc 217 mg/dL [facility] [employer] Comment: eAG equivalents for HbA1c percentages: HbA1c(%) ?eAG(mg/dL) 6.0 ?126 6.5 ?140 7.0 ?154 7.5 ?169 8.0 ?183 8.5 ?197 9.0 ?212 9.5 ?226 10.0 ? 240 Limitations: The eAG calculation has not been validated on women, individuals below 18 years old and above 70 years old, and individuals with hemoglobinopathies. Additional resources are available on [facility] ADA website: ??http://professional.diabetes.org/gluc osecalculator.aspx Scooby MALDONADO, Nba J, Sydnee R, et al. ??Tr anslating the A1C assay into estimated average glucose values. ??Diabetes Care 2008:31(8):4380-2713. Specimen Anatomical Collection Method Collection Time Receive d Time (Source) Location / / Volume Laterality Blood specimen 11/07/2013 12:15 4 (specimen) PM EDT 12:18 PM EDT Resulting Agency Comment Spec In Lab Donell Hernandez MD CHEMISTRY ORDERABLES Performing Organization Address City/State/[place] [address] [facility] (ABNORMAL) Hemoglobin A1c (08/06/2013 12:52 PM EST) Analysis Performed At [facility] Time Signature Hemoglobin A1C 7.5 (H) <=5.6 % [facility] Comment: As of 2013 the methodology for [...] Mellitus, Diabetes Care 2013; 36: Suppl. 1, S67-87 Est Avg Gluc 169 mg/dL [facility] Comment: eAG equivalents for HbA1c percentages: HbA1c(%) ?eAG(mg/dL) 6.0 ?126 6.5 ?140 7.0 ?154 7.5 ?169 8.0 ?183 8.5 ?197 9.0 ?212 9.5 ?226 10.0 ? 240 Limitations: The eAG calculation has not been validated on women, individuals below 18 years old and above 70 years old, and individuals with hemoglobinopathies. Additional resources are available on ADA website: ??http://professional.diabetes.org/gluc osecalculator.aspx Scooby MALDONADO, Nba J, Sydnee R, et al. ??Tr anslating the A1C assay into estimated average glucose values. ??Diabetes Care 2008:31(8):9783-4869. Specimen Anatomical Collection Method Collection Time Receive d Time (Source) Location / / Volume Laterality Blood specimen 08/06/2013 12:52 4 1:02 (specimen) PM EST PM EST Resulting Agency Comment Spec In Lab Donell Hernandez MD CHEMISTRY ORDERABLES Performing Organization Address City/State/ZIP [place] [address] [facility] documented in this encounter Visit Diagnoses Diagnosis Type II or unspecified type diabetes fredo litus with neurological manifestations, uncontrolled(250.62) - Primary Type II or unspecified type diabetes fredo litus with neurological manifestations, uncontrolled S/P bilateral BKA (below knee amputation ) Lower limb amputation, below knee History of renal transplant Kidney replaced by transplant Immunocompromised Unspecified immunity deficiency Morbid obesity documented in this encounter Care Teams Job Press Operator Relationship Specialty Start Date End Date Dc Ibanez MD PCP - General 04/02/13 04/01/14 [address] [place] [address] documented as of this encounter
--- OUTSIDE RECORDS SUMMARY | 2022-05-24 10:55 | XMS_ITS | Encounter Summary ---
:1955 Author Organization [place] [address] Care Team Providers Name Role Phone Violetta Sanford MD Primary Care Provider Encounter Details Date Type Department Care Team Description 04/10/2014 Anesthesia Event Main Operating Room Jocy Lyn [facility] [place] [address] [place] [address] [phone] Anesthesia Record Procedure Summary Procedure Name Responsible [...] encounter OR Notes Anesthesia Preprocedure Evaluation - Jocy Lyn MD - 04/09/2014 6:43 PM EDT Pre-Anesthesia Evaluation for: Leroy Torres [...] BELOW-KNEE performed by HENNA GAMINO JR at [facility] MAIN OR ??? Lap, appendectomy 06/16/2013 LAPAROSCOPIC APPENDECTOMY performed by Angel Mccann MD at [facility] MAIN OR History Substance Use Topics ??? [...] or weight on file to calculate BMI. Anesthesia Physical Exam Anesthesia Plan: ASA 3 general, with a(n) intravenous induction Preliminary Note Per Chart Review (Prior to Patient Exam): Leroy Torres is a 58 y.o. morbidly obese male with IDDM, COPD w/ + tobacco hx, HTN, CKD s/p renal x-plant in 2007 (on cellcept and prograf) and [...] , ischemic signs or WMAs(+ trace MR/TR). Recent Labs: WBC 6.1 02/25/2014 HGB 12.4 02/25/2014 HCT 38.2 02/25/2014 MCV 97.0 02/25/2014 PLATELET 180 02/25/2014 BUN 25 02/25/2014 CREATININE 1.58 02/25/2014 ABORH O Pos 06/22/2013 PT 17.2 06/16/2013 INR 1.4 06/16/2013 Plan is for GETA. Region - Other Informed Consent: [facility]. Assessment: documented in this encounter Plan of Treatment Upcoming Encounters Date Type Specialty Care Team Description 05/26/2022 Office Visit Otolaryngology Ricardo Panda PA [facility] [place], [place] [address] (Wo rk) 06/02/2022 Infusion Hematology and Oncology 06/16/2022 Infusion Hematology and Oncology 06/21/2022 Office Visit Neurology Tyler Rojas MD [facility] Neurology [place], [place] [phone] (Wo rk) 06/30/2022 Infusion Hematology and Oncology 07/14/2022 Infusion Hematology and Oncology 07/28/2022 Infusion Hematology and Oncology 08/11/2022 Infusion Hematology and Oncology 11/04/2022 Office Visit Rheumatology Dante Freedman PA [facility] RHEUMATOLOGY [place], [place] [address] (Wo rk) documented as of this encounter Visit Diagnoses Not on filedocumented in this encounter Care Teams Car Escort Relationship Specialty Start Date End Date Violetta Sanford MD PCP - General 04/02/14 [facility] [address] [place] [address] documented as of this encounter
--- OUTSIDE RECORDS SUMMARY | 2022-05-24 10:55 | XMS_ITS | Encounter Summary ---
:1955 Author Organization [facility] [place] [address] Care Team Providers Name Role Phone Dc Ibanez MD Primary Care Provider Reason for Visit Reason Comments Other Encounter Details Date Type Department Care Team Description 02/19/2014 Telephone Urology at [facility] Rosa Ayala, [facility] [place] [address] [facility] [phone] UROLOGY DEPT. [place], [place] [address] (Wo rk) Social History Tobacco [...] this encounter Miscellaneous Notes Telephone Encounter - Rosa Ayala APRN - 02/19/2014 7:12 AM EDT Communicated with Dr. Lemus who indicates that if pt strongly desires surgery, which he does, then we could accomodate him. Dr. Lemus would like pt to see anesthesia for plan in place, and pt needs to be done in main OR. Pt would like to meet Mariah that day to review the procedure and risks (at which time the consent could be signed). Pt is happy with the plan Pt can not do surgery until after 03/02/14, so will let our OR alamo and Mariah' alumni secretary know. documented in this encounter Plan of Treatment Upcoming Encounters Date Type Specialty Care Team Description 05/26/2022 Office Visit Otolaryngology Ricardo Panda PA [facility] [address] [place], [place] [address] (Wo rk) 06/02/2022 Infusion Hematology and Oncology 06/16/2022 Infusion Hematology and Oncology 06/21/2022 Office Visit Neurology Tyler Rojas MD [facility] Neurology [place], [place] [phone] (Wo rk) 06/30/2022 Infusion Hematology and Oncology 07/14/2022 Infusion Hematology and Oncology 07/28/2022 Infusion Hematology and Oncology 08/11/2022 Infusion Hematology and Oncology 11/04/2022 Office Visit Rheumatology Dante Freedman PA [facility] RHEUMATOLOGY [place], [place] [address] (Wo rk) documented as of this encounter Visit Diagnoses Not on filedocumented in this encounter Care Teams Osteopathic Neurologist Relationship Specialty Start Date End Date Dc Ibanez MD PCP - General 04/02/13 04/01/14 [facility] [address] [place] [address] documented as of this encounter
--- OUTSIDE RECORDS SUMMARY | 2022-05-24 10:55 | XMS_ITS | Encounter Summary ---
:1955 Author Organization [facility] [address] Care Team Providers Name Role Phone Dc Ibanez MD Primary Care Provider Encounter Details Date Type Department Care Team Description 02/13/2014 Hospital Encounter Ultrasound [place] [facility] [place] [address] Social History Tobacco Use Types Packs/Day [...] Take 81 mg by mouth 0 daily. insulin aspart (NOVOLOG Inject 50-60 Units 75 [...] type diabetes mellitus with neurological manifestations, uncontrolled(250.62) tiotropium (SPIRIVA WITH Inhale 18 mcg into 0 02/25/2014 HANDIHALER) 18 mcg the lungs daily. inhalation capsule with device insulin detemir Inject 60 Units 0 03/26 (LEVEMIR) pen injection subcutaneously 2 times daily. Insulin [place], Please use as 450 each 4 11/07/201304/19 Disposable, (BD INSULIN directed. 3 month PEN NEEDLE UF SHORT) 31 refill = 450 PEN X 12/07 needles. NdleIndications: Diabetes mellitus, Type II or unspecified type diabetes mellitus with neurological manifestations, uncontrolled(250.62) gabapentin (NEURONTIN) Take 5 capsules by 450 capsule 3 10/2305/15/2014 300 mg mouth daily. 2 tabs capsuleIndications: Type in the AM and 3 tabs II or unspecified type in the PM diabetes mellitus with neurological manifestations, uncontrolled(250.62), Type 2 diabetes mellitus with diabetic neuropathy tacrolimus (PROGRAF) 1 Take 2 mLs by mouth 0 10/201202/25/2014 mg/2 mL Botl 2 times daily. MULTIVITS-MINERALS/FA/LY Take by mouth daily. 0 08/29/2019 COPENE (ONE-A-DAY MEN'S MULTIVITAMIN ORAL) glucagon, human Inject 1 mL into the 1 each 3 11/29/2012 05/07/2015 recombinant, 1 mg/mL muscle as needed. injectionIndications: Type II or unspecified type diabetes mellitus with neurological manifestations, uncontrolled(250.62) CELLCEPT 250 mg Take 2 capsules by 120 capsule 11 11/17/2012 02/25/2014 capsuleIndications: mouth 2 times daily. Transplanted kidney Kidney Transplant V42.0. Transplant Date; 02-29-08 losartan (COZAAR) 50 mg Take 1 tablet [...] Panda PA [facility] [place] [address] (Wo rk) 06/02/2022 Infusion Hematology and Oncology 06/16/2022 Infusion Hematology and Oncology 06/21/2022 Office Visit Neurology Tyler Rojas MD [facility] Neurology [place], [place] [phone] (Wo rk) 06/30/2022 Infusion Hematology and Oncology 07/14/2022 Infusion Hematology and Oncology 07/28/2022 Infusion Hematology and Oncology 08/11/2022 Infusion Hematology and Oncology 11/04/2022 Office Visit Rheumatology Dante Freedman PA [facility] ER RHEUMATOLOGY [place], [place] [address] (Wo rk) documented as of this encounter Procedures Procedure Name Priority Date/Time Associated Diagnosis Comme nts US SCROTUM Routine 02/13/2014 10:41 AM Scrotal pain Results for this EDT procedure are i n the results section . documented in this encounter Results US scrotum (02/13/2014 10:41 AM EDT) Anatomical Region Laterality Modality Pelvis Ultrasound Specimen (Source) Anatomical Collection Method Collection Time Re ceived Time Location / / Volume Laterality 02/13/2014 10:41 AM EDT Narrative 02/13/2014 11:34 AM EDT Scrotal ?(Signed Final 02/13/2014 11:33 ? am) Patient Info ID #: ? [id number] ?: ??[birth year] (58 yrs) Name: ? LEROY DAILEY ? Visit Date: 02/13/2014 10:10 am Performed By Performed By: ?Sharan [facility], Loretta Associate: ? Chris HAWK, Nikolay Freed Attending: ? Deirdre HAWK, Phyllis Gil Referred By: ? LAURA GOODMAN PROFILE SAW SETUP OPERATOR Service(s) Provided ??[facility] - Ultrasound Scrotum and Contents with ?[id number], [id number] ??Vascular - [id number], [id number] Indications ??Scrotal pain Comparison None available. Right [...] 02/13/2014 11:33 am) Patient Info ID #: [id number] : [birth year] (58 y rs) Name: LEROY DAILEY Visit Date: 01/23 10:10 am Performed By Performed By: Loretta Tsang RDMS Associate: Nikolay Perez MD Attending: Phyllis Gilmore MD Referred By: LAURA CASAS Service(s) Provided [facility] - Ultrasound [place]rot[place] [address], [address] Vascular - [id number], [id number] Indications Scrotal pain Comparison None available. Right [...] this encounter Visit Diagnoses Diagnosis Scrotal pain Unspecified disorder of male genital org ans documented in this encounter Care Teams Pad Machine Operator Relationship Specialty Start Date End Date Dc Ibanez MD PCP - General 04/02/13 04/01/14 [facility] [facility] [address] [place] [address] documented as of this encounter
--- OUTSIDE RECORDS SUMMARY | 2022-05-24 10:55 | XMS_ITS | Encounter Summary ---
:1955 Author Organization [facility] [place] [address] Care Team Providers Name Role Phone Violetta Sanford MD Primary Care Provider Encounter Details Date Type Department Care Team Description 04/10/2014 Surgery Main Operating Room Marco Lemus MD Not Performed [facility] HYDROCELECTOMY, [facility] DR CERRATO (WRVU 5.45) [facility] UROLOGY DEPT. [place] [phone] Social History Tobacco Use Types Packs/Day Years [...] Sign Reading Time Taken Comments Blood Pressure 157/70 04/10/2014 1:49 PM EDT Pulse 61 04/10/2014 1:49 PM EDT Temperature 36.8 ??C (98.2 ??F) 04/10/2014 1:49 PM EDT Respiratory Rate 16 04/10/2014 1:49 PM EDT Oxygen Saturation 97% 04/10/2014 1:49 PM EDT Inhaled Oxygen Concentration - - Weight 146.5 kg (323 lb) 04/10/2014 1:49 PM EDT Height - - Body Mass Index 40.37 02/25/2014 10:56 AM EDT documented in this encounter Medications at [...] pen injection subcutaneously 2 times daily. Insulin [place], Please use as 450 each 4 11/07/201304/19 Disposable, (BD INSULIN directed. 3 month PEN NEEDLE UF SHORT) 31 refill = 450 PEN X 5/16 needles. NdleIndications: Diabetes mellitus, Type II or [...] capsule daily. documented as of this encounter Progress Notes Marco Lemus MD - 04/10/2014 2:00 PM EDT Pt scheduled for hydrocelectomy today. However he notes a new tender fluctuant mass on the skin of his right groin. Exam reveals a fluctuant mass w/ surrounding erythema. I recommended rescheduling hydrocelectomy and sending him to the ED for likely I&D, fluid culture, and po antibiotic course. We will reschedule him for hydrocelectomy in at least 2 weeks. I asked him to ensure he is off of aspirin for 1 week prior to his rescheduled date. documented in this encounter Miscellaneous Notes Miscellaneous - ProviderKody - 04/10/2014 1:43 PM EDT documented in this encounter Plan of Treatment Upcoming Encounters Date Type Specialty Care Team Description 05/26/2022 Office Visit Otolaryngology Ricardo Panda, PA [facility] [address] [place], [place] [address] (Wo rk) 06/02/2022 Infusion Hematology and Oncology 06/16/2022 Infusion Hematology and Oncology 06/21/2022 Office Visit Neurology Tyler Rojas MD [facility] Medical [facility] er Neurology [place], [place] [phone] (Wo rk) 06/30/2022 Infusion Hematology and Oncology 07/14/2022 Infusion Hematology and Oncology 07/28/2022 Infusion Hematology and Oncology 08/11/2022 Infusion Hematology and Oncology 11/04/2022 Office Visit Rheumatology Dante Freedman PA [facility] ER RHEUMATOLOGY [place], [place] [address] (Wo rk) documented as of this encounter Procedures Procedure Name Priority Date/Time Associated Diagnosis Comme nts POCT GLUCOSE Routine 04/10/2014 2:02 PM Results f or this EDT procedure are i n the results section . documented in this encounter Results (ABNORMAL) POCT Glucose (04/10/2014 2:02 PM EDT) P athologist Signature POC Glucose 281 (H) 60 - 199 CERNER mg/dL MILLENNIUM Comment: Supplemental ranges: <140 mg/dL before meals <180 mg/dL all other times of the day Specimen Anatomical Collection Method Collection Time Receive d Time (Source) Location / / Volume Laterality Blood specimen 04/10/2014 2:02 PM 014 2:02 (specimen) EDT PM EDT Marco Lemus MD POINT OF CARE TEST ORDERABLE S Performing Organization Address City/State/ZIP [place] [address] CERNER MILLENNIUM documented in this encounter Visit Diagnoses Not on filedocumented in this encounter Active and Recently Administered Medications Care Teams Tufter Operator Relationship Specialty Start Date End Date Violetta Sanford MD PCP - General 04/02/14 [address] [place] [address] documented as of this encounter
--- OUTSIDE RECORDS SUMMARY | 2022-05-24 10:55 | XMS_ITS | Encounter Summary ---
:1955 Author Organization [facility] [place] [address] Care Team Providers Name Role Phone Violetta Sanford MD Primary Care Provider Encounter Details Date Type Department Care Team Description 03/08/2015 [facility] Recurring Angel Mccann d kidney Encounter Series A, [facility] [address], [place] TRANSPLANT [address] SURGERY [phone] [place] [address] Social History Tobacco Use Types Packs/Day Years [...] Ricardo Panda PA [facility] [address], [place] [address] (Wo rk) 06/02/2022 Infusion Hematology and Oncology 06/16/2022 Infusion Hematology and Oncology 06/21/2022 Office Visit Neurology Tyler Rojas MD [facility] er Neurology [place], [place] [phone] (Wo rk) 06/30/2022 Infusion Hematology and Oncology 07/14/2022 Infusion Hematology and Oncology 07/28/2022 Infusion Hematology and Oncology 08/11/2022 Infusion Hematology and Oncology 11/04/2022 Office Visit Rheumatology Dante Freedman PA [facility] RHEUMATOLOGY [place], [place] [address] (Wo rk) documented as of this encounter Visit Diagnoses Diagnosis Transplanted kidney Kidney replaced by transplant documented in this encounter Care Teams Material Handler 1St Shift Relationship Specialty Start Date End Date Violetta Sanford MD PCP - General 04/02/14 [address] [place] [address] documented as of this encounter
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
--- OUTSIDE RECORDS SUMMARY | 2022-05-24 10:55 | XMS_ITS | Encounter Summary ---
:1955 Author Organization [facility] [place] [address] Care Team Providers Name Role Phone Violetta Sanford MD Primary Care Provider Reason for Referral Physical Therapy (Routine) - Closed Specialty Diagnoses / Procedures Referred By Contact Refer red To Contact Physical Therapy Diagnoses Hx of BKA, unspecified laterality Donell Hernandez MD [facility] Pt Rehab [facility] ENDOCRINOLOGY DEPT. [address] [address] Phone: Fax: Referral ID Status Reason Start Date Expiration Date Visits V isits Requested Authorized [id number] Closed Evaluate and 06/09/2014 12/06/2014 1 1 Treat Encounter Details Date Type Department Care Team Description 06/09/2014 Orders Only Endocrinology at [facility] Donell Hardin, Hx of BKA, [facility] [place] [address] [facility] laterality [phone] CENTER ENDOCRINOLOGY DEPT. [place], [place] [address] Social History Tobacco Use Types [...] Panda PA [facility] er Dr [place], [place] [address] (Wo rk) 06/02/2022 Infusion Hematology and Oncology 06/16/2022 Infusion Hematology and Oncology 06/21/2022 Office Visit Neurology Tyler Rojas MD [facility] Neurology [place], [place] [phone] (Wo rk) 06/30/2022 Infusion Hematology and Oncology 07/14/2022 Infusion Hematology and Oncology 07/28/2022 Infusion Hematology and Oncology 08/11/2022 Infusion Hematology and Oncology 11/04/2022 Office Visit Rheumatology Dante Freedman PA [facility] RHEUMATOLOGY [place], [place] [address] (Wo rk) documented as of this encounter Procedures Procedure Name Priority Date/Time Associated Diagnosis Comme nts AMB REFERRAL TO PHYSICAL Routine 06/28/2014 Hx of BKA, unspe cified THERAPY laterality documented in this encounter Results Referral to Physical Therapy (06/28/2014) Donell Hernandez MD AMB THERAPY REFERRALS documented in this encounter Visit Diagnoses Diagnosis Hx of BKA, unspecified laterality documented in this encounter Care Teams Chimney Supervisor Brick Relationship Specialty Start Date End Date Violetta Sanford MD PCP - General 04/02/14 [address] [place] [address] documented as of this encounter
--- OUTSIDE RECORDS SUMMARY | 2022-05-24 10:55 | XMS_ITS | Encounter Summary ---
:1955 Author Organization [facility] [place] [address] Care Team Providers Name Role Phone Violetta Sanford MD Primary Care Provider Reason for Visit Reason Comments Diabetes Encounter Details Date Type Department Care Team Description 11/20/2014 Office Visit Endocrinology at [facility] Donell Hernandez, Type II or unspecified type diabetes mellitus with neurological manifestations, uncontrolled; [facility] Body mass index (BMI) of 36.0-36.9 in ad ult; [facility] S/P bilateral BKA (below kne e amputation); [place] [address] [facility] CKD (chronic kidney disease), stage II; [phone] ENDOCRINOLOGY History of yaniv al transplant DEPT. [place], [place] [address] Social History Tobacco Use Types [...] Sign Reading Time Taken Comments Blood Pressure 158/71 11/20/2014 10:27 AM EDT Pulse 62 11/20/2014 10:27 AM EDT Temperature - - Respiratory Rate - - Oxygen Saturation - - Inhaled Oxygen - - Concentration Weight 151 kg (333 lb) 11/20/2014 10:27 8 lbs of prosth etic AM EDT legs Height 194.3 cm (6' 4.5) 11/20/2014 10:27 AM EDT Body Mass Index 40.01 11/20/2014 10:27 AM EDT documented in this encounter Progress Notes Donell Hernandez MD - 11/20/2014 11:06 AM EDT Year of diagnosis: Regimen ____ [...] bilateral bka R and morbid obesity. From Apr 2014 1) DM2 - he has had a [...] 5) CKD - stable at stage 3 Getting new legs - getting blisters and ulcers from these swollen testicle - got better but comes and goes Stopped losartan due to potassium issues Regimen Basal levemir 60 bid Bolus aspart 30-35 units per meal (w snack) qid , misses lunch a lot Uses a sliding scale hbgm 4 x a day Usually 200-210 Before meals One episode of 600's in afternoon Hypo none Diet B 1 cruellar Egg mcmuffin Sn L [place] sandwich Sn D Chicken casserole Sn popcorn Exercise Walks some complications Eyes prior laser therapy Feet Bilateral BKA Kidneys transplant autonomic: no gastroparesis bladder hypo unaware tachycardia cardiac no chest pain on exertion No shortness of breath at rest No history of stent cabg chf prevention: last eye exam: 2 mo ago last microalbumin :2012 last Cr:today last lipid panel:2012 regular roll former:no special shoes:no flu shot :yes pneumovax: 2012 acei yes Asa Yes statin yes Current Outpatient Prescriptions Medication Sig Dispense Refill ??? insulin detemir (LEVEMIR FLEXTOUCH) Insulin Pen Inject 60-70 Units subcutaneously 2 times daily.Takes 60 units in the morning, and 70 units at night ??? gabapentin (NEURONTIN) 300 mg Capsule 3 tabs in the AM and 3 tabs in the PM 540 capsule 3 ??? propranolol (INDERAL) 80 mg Tablet Take 1 tablet by mouth 2 times daily. 360 tablet prn ??? insulin aspart (NOVOLOG FLEXPEN) Insulin Pen Inject 30-40 Units subcutaneously 4 times daily. Form faxed to [facility] for new Rx 75 mL 11 ??? Insulin [place], Disposable, (BD INSULIN PEN NEEDLE UF SHORT) 31 X 5/16 Needle Form faxed for new Rx to [facility] 450 each 4 ??? CELLCEPT 250 mg capsule Take 2 capsules by mouth 2 times daily. Kidney Transplant V42.0. Transplant Date; 02-29-08 120 capsule 11 ??? PROGRAF 1 mg capsule Take 1 capsule by mouth 2 times daily. KIDNEY TRANSPLANT V42.0. TRANSPLANT DATE - 02/29/2008 60 capsule 11 ??? MULTIVITS-MINERALS/FA/LYCOPENE (ONE-A-DAY MEN'S MULTIVITAMIN ORAL) Take by mouth daily. ??? aspirin 81 mg EC tablet Take 81 mg by mouth daily. ??? CHOLECALCIFEROL, VITAMIN D3, (VITAMIN D-3 ORAL) [...] Take 40 mg by mouth daily. ??? fluticasone (FLONASE) 50 mcg/actuation nasal spray 2 sprays by Each Nare route as needed. 64 g 11 ??? glucagon, human recombinant, 1 mg/mL injection Inject 1 mL into the muscle as needed. 1 each 3 No current facility-administered medications for this visit. BP 158/71 Pulse 62 Ht 194.3 cm (6' 4.5) Wt 151.048 kg (333 lb) BMI 40.01 kg/m2 Weight is stable Appearance: looks well eyes: old retinopathy seen by green light ext: R stump has a callus w crack towards distal end and a 3 cm diameter shallow circular blister base on the lateral side Recent Results (from the past 24 hour(s)) HEMOGLOBIN A1C Result Value Ref Range Hemoglobin A1C 8.9 (*) 4.3 - 5.6 % Est Avg Gluc 209 CREATININE Result Value Ref Range Creatinine 1.54 (*) 0.80 - 1.50 mg/dL Estimated GFR 46 (*) >=60 Ref. Range 05/31/2014 10:22 11/20/2014 08:50 Hemoglobin A1C Latest Range: 4.3-5.6 % 9.7 (H) 8.9 (H) 1) DM2- poor diabetes control but much [...] - up to date on statin . 5) documented in this encounter Plan of Treatment Upcoming Encounters Date Type Specialty Care Team Description 05/26/2022 Office Visit Otolaryngology Ricardo Panda PA [facility] [address] [place], [place] [address] (Wo rk) 06/02/2022 Infusion Hematology and Oncology 06/16/2022 Infusion Hematology and Oncology 06/21/2022 Office Visit Neurology Tyler Rojas MD [facility] Neurology [place], [place] [phone] (Wo rk) 06/30/2022 Infusion Hematology and Oncology 07/14/2022 Infusion Hematology and Oncology 07/28/2022 Infusion Hematology and Oncology 08/11/2022 Infusion Hematology and Oncology 11/04/2022 Office Visit Rheumatology Dante Freedman PA [facility] RHEUMATOLOGY [place], [place] [address] (Wo rk) documented as of this encounter Procedures Procedure Name Priority Date/Time Associated Diagnosis Comme nts CREATININE STAT 11/20/2014 8:50 AM Type II or unspecified Results for this EDT type diabetes mellitus proce dure are in with neurological the result s manifestations, section. uncontrolled HEMOGLOBIN A1C STAT 11/20/2014 8:50 AM Type II or unspecifi ed Results for this EDT type diabetes mellitus proce dure are in with neurological the result s manifestations, section. uncontrolled documented in this encounter Results (ABNORMAL) Creatinine (06/30/2015 9:09 AM EST) P athologist Signature Creatinine 1.77 (H) 0.80 - CERNER 1.50 mg/dL MILLENNIUM Comment: Please note that the pediatric reference intervals supplied above were not validated at [facility]. Results from pediatri c patients should be interpreted in conjunction to the patient's age, height and muscle mass. Estimated GFR 39 (L) >=60 HOLLI Ramirez Comment: This estimated [...] the following links into your internet browser. [email or web address] – SEILINGnkf Specimen Anatomical Collection Method Collection Time Receive d Time (Source) Location / / Volume Laterality Blood specimen 06/30/2015 9:09 AM 015 9:19 (specimen) EST AM EST Resulting Agency Comment Spec In Lab Donell Hernandez MD CHEMISTRY ORDERABLES Performing Organization Address City/State/[place] [id number] [facility] (ABNORMAL) Hemoglobin A1c (06/30/2015 9:09 AM EST) Analysis Performed At Patho logist Time Signature Hemoglobin A1C 8.6 (H) 4.3 - 5.6 CERNER % MILLENNIUM [...] Mellitus, Diabetes Care 2013; 36: Suppl. 1, E63-99 Est Avg Gluc 200 mg/dL [facility] Comment: eAG equivalents for HbA1c percentages: HbA1c(%) ?eAG(mg/dL) 6.0 ?126 6.5 ?140 7.0 ?154 7.5 ?169 8.0 ?183 8.5 ?197 9.0 ?212 9.5 ?226 10.0 ? 240 Limitations: The eAG calculation has not been validated on women, individuals below 18 years old and above 70 years old, and individuals with hemoglobinopathies. Additional resources are available on [facility] website: [email or web address]/[facility] – SEILINGadacalc Scooby MALDONADO, Nba J, Sydnee R, et al. ??Tr anslating the A1C assay into estimated average glucose values. ??Diabetes Care 2008:31(8):7931-3001. Specimen Anatomical Collection Method Collection Time Receive d Time (Source) Location / / Volume Laterality Blood specimen 06/30/2015 9:09 AM 015 9:19 (specimen) EST AM EST Resulting Agency Comment Spec In Lab Donell Hernandez MD CHEMISTRY ORDERABLES Performing Organization Address City/State/[place] [address] DELLADINH COLESHELDONIUM (ABNORMAL) Creatinine (11/20/2014 8:50 AM EDT) athologist Signature Creatinine 1.54 (H) 0.80 - CERNER 1.50 mg/dL MILLENNIUM Comment: Please note that the pediatric reference intervals supplied above were not validated at [facility]. Results from pediatri c patients should be interpreted in conjunction to the patient's age, height and muscle mass. Estimated GFR 46 (L) >=60 HOLLI Ramirez Comment: This estimated [...] the following links into your internet browser. [email or web address] [email or web address] Specimen Anatomical Collection Method Collection Time Receive d Time (Source) Location / / Volume Laterality Blood specimen 11/20/2014 8:50 AM 015 9:01 (specimen) EDT AM EDT Resulting Agency Comment Spec In Lab Donell Hernandez MD CHEMISTRY ORDERABLES Performing Organization Address City/State/[place] [id number] CERNER MILLENNIUM (ABNORMAL) Hemoglobin [...] 36: Suppl. 1, S67-74 Est Avg Gluc 209 mg/dL CERNER MILLENNIUM Comment: eAG equivalents for HbA1c percentages: HbA1c(%) ?eAG(mg/dL) 6.0 ?126 6.5 ?140 7.0 ?154 7.5 ?169 8.0 ?183 8.5 ?197 9.0 ?212 9.5 ?226 10.0 ? 240 Limitations: The eAG calculation has not been validated on women, individuals below 18 years old and above 70 years old, and individuals with hemoglobinopathies. Additional resources are available on [facility] website: [email or web address] Scooby MALDONADO, Nab J, Sydnee R, et al. ??Tr anslating the A1C assay into estimated average glucose values. ??Diabetes Care 2008:31(8):0603-3075. Specimen Anatomical Collection Method Collection Time Receive d Time (Source) Location / / Volume Laterality Blood specimen 11/20/2014 8:50 AM 015 9:01 (specimen) EDT AM EDT Resulting Agency Comment Spec In Lab Donell Hernandez MD CHEMISTRY ORDERABLES Performing Organization Address City/State/[place] [id number] [facility] documented in this encounter Visit Diagnoses Diagnosis Type II or unspecified type diabetes fredo litus with neurological manifestations, uncontrolled(250.62) Type II or unspecified type diabetes fredo litus with neurological manifestations, uncontrolled Body mass index (BMI) of 36.0-36.9 in ad ult Body Mass Index 36.0-36.9, adult S/P bilateral BKA (below knee amputation ) Lower limb amputation, below knee CKD (chronic kidney disease), stage II Chronic kidney disease, Stage II (mild) History of renal transplant Kidney replaced by transplant documented in this encounter Care Teams Quality Assurance Group Leader Relationship Specialty Start Date End Date Violetta Sanford MD PCP - General 04/02/14 [address] [place] [address] documented as of this encounter
--- OUTSIDE RECORDS SUMMARY | 2022-05-24 10:55 | XMS_ITS | Encounter Summary ---
:1955 Author Organization [place] [address] Care Team Providers Name Role Phone Dc Ibanez MD Primary Care Provider Reason for Visit Reason Comments Hydrocele Encounter Details Date Type Department Care Team Description 02/13/2014 Office Visit Urology at [facility] Zane Ayala (Primary Dx); [facility] BERTA Lee Lower urinary [place] [address] UROLOGY DEPT. [phone] [place], [place] [address] Social History Tobacco Use Types [...] Sign Reading Time Taken Comments Blood Pressure 155/58 02/13/2014 11:11 AM EDT Pulse 62 02/13/2014 11:11 AM EDT Temperature - - Respiratory Rate 16 02/13/2014 11:11 AM EDT Oxygen Saturation - - Inhaled Oxygen Concentration - - Weight 149.7 kg (330 lb) 02/13/2014 11:11 AM EDT Height 193 cm (6' 4) 02/13/2014 11:11 AM EDT Body Mass Index 40.17 02/13/2014 11:11 AM EDT documented in this encounter Progress Notes Rosa yAala, BERTA - 02/13/2014 11:03 AM EDT UROLOGY CLINIC NEW PATIENT ASSESSMENT Patient Name: Leroy Torres Patient Primary Care Provider: DC IBANEZ MD Referring Provider: Dr. Rayo Caldwell History of Present Illness: Leroy Torres is a 58 y.o. year old, seen at the request of Dr. Rayo Caldwell for evaluation and assessment of a left hydrocele. He presents with his mother. He has had these symptoms, more bothersome in the past [address] Caldwell have been received and reviewed. Pt has a history of operation 20 years ago by[id number] what he thought was a left hydrocele. 3 years after the procedure,the hydrocele started to recur and has gotten bigger over the past 5 years. When pt was seen by Dr. Caldwell on 01/08/14, scrotal size had increased and become uncomfortable in the prior 2 months. His scrotal mass on exam by Dr. Caldwell was the size of a grapefruit and partially transilluminated. Mr. Torres presents today for ongoing scrotal pain. He had an US this morning. Pain today is not bad. He states his hydrocele fluctuates. He sits so often that he gets pain with that. No meds for the pain. He takes gabapentin for nerve pain, and thinks this helps his scrotal discomfort as well. He has never had a vasectomy. He voids ok, at times he has to strain to void. Would consider another medication, has had intermittency for the past 3-4 months. He wakes 3-4 times at night and drinks fluids in the evening. He is drinking 3 litres of fluid per day given Transplant recommendations. He drinks mostly soda, but more recently water. He moves his bowels every other day-no supplements. Sometimes moves his bowels every 2 days. He has a history of complicated recover after lap appendectomy in 05/2013 here at [facility]. He required mechanical ventilation for about 3 days postoperatively. He also has a history of renal transplant in 2008 and is followed by Transplant here. His cre dated 01/18/14 was 1.61. He will see Dr. Garnett next month. DM is with blood sugars under 200 average [address] he sees Dr. Hernandez every 6 months. GENERAL HEALTH: fair REVIEW OF SYSTEMS: Negative. 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 He is on Spiriva for COPD. -- CVS - No chest pain or SMITH. No claudication. -- GI -normal appetite and bowels -- MUSCULOSKELETAL - No joint or muscle aches or dysfunction Patient Active Problem List Diagnosis Code ??? [...] 780.60 ??? Tremor/tics 781.0 ??? Hyperglycemia 790.29 CAD COPD, stage 3 HTN Asthma Chronic anxiety Bjhghoeges-swhtbzsl-aul after transplant Past Surgical History Procedure Date ??? Created [...] by HENNA GAMINO JR at [facility] MA[facility] OR ??? Lap, appendectomy 06/16/2013 LAPAROSCOPIC APPENDECTOMY performed by Angel Mccann MD at [facility] MAIN OR cardiac cath in 2005 Bilateral cataracts Sinus surgery 2010 History Social History ??? Marital Status: Spouse Name: N/A Number of Children: N/A ??? Years of Education: N/A Occupational History ??? Not on file. Social History Main Topics ??? Smoking status: Former Smoker -- 2.0 packs/day for 20 years Types: Cigarettes Quit date: 01/19/1993 ??? Smokeless tobacco: Never Used ??? Alcohol Use: Yes Comment: rare ??? Drug Use: No ??? Sexually Active: Not on file Comment: deferred Other Topics Concern ??? Not on file Social History Narrative ??? 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 Family history: none urologic. Twin brother and dad of lung cancer. PHYSICAL EXAM: Vital signs normal - see Data Flow Sheet Oriented to person, place and time. Healthy appearance. Color normal. No significant skin lesions. Head: normocephalic and atraumatic Lymph: No cervical, supraclavicular or inguinal lymphadenopathy Abdomen: benign without masses, rebound, guarding, or tenderness. No hepatosplenogmegaly. No CVA tenderness. He has large left LQ abd scar, well healed. abd is obese Genitalia:Scrotum - Color and texture normal; no masses. Right testicle normal, without tenderness. Left testicle not palpable, large hydrocele, tense, the size of a grapefruit, nontender. Penis normal, circumsized. No scrotal lesions and scrotum does not appear inflamed. Rectal: deferred. Musculoskeletal: bilateral knee amputations with prostheses, presents in wheelchair with some difficulty getting to standing positition Neurologic: grossly intact. No tremor noted today PVR with bladder scanner by my review: nil cc U/A by my review: not obtained, he was not able to void for us Imaging by my review: Scrotal US: 02/13/14: large septated left hydrocele. Testicles appear normal. Per final report: Impression Ultrasound - Testicular - Summary Large complex left ken-scrotum fluid collection which may represent a hydrocele with proteinaceous debris, pyocele or hematocele. The collection causes mass effect on the testes/right hemiscrotum, however they appear symmetric in size and vascularity. Epididymides are not visualized. 12/2013: cre 1.6 IMPRESSION: Large left, intermittently uncomfortable probable hydrocele in patient with multiple other medical comorbidities including DM, COPD and prolonged hospital recovery s/p appendectomy here at [facility] In 05/2013 requiring ventillation. Prior history of hydrocele drainage 2o years ago Mild LUTS PLAN/RECOMMENDATION: I have reviewed the above diagnosis with . Leroy Torres. My recommendations include: Scrotal support, tylenol for discomfort We discussed his US findings and surgical management of hydroceles-either sclerosis (which may not work given the septations, and general risk of reaccumulation with drainage and sclerosis) and hydrocelectomy. At this time, given his symptoms and US imaging, as well as medical comorbidities, I would pr efer to review his case with an Attending to discuss options of hydrocelectomy. We discussed the procedure of hydrocelectomy, including risks like bleeding, infection, readmission, injury to the testicle, surrounding structures, urinary tract. He is at the point he would like to consider surgery. Wonder about possibility of this being done under a block instead of general anesthesia given his last surgical experience. I discussed a surgeon may want to see him back in clinic prior to making a final decision. He is content with this. We discussed his PVR is low, that he drinks a lot of fluid (mostly soda). We discussed moderating bladder irritants like soda and having him drink mostly water to help his urge but keep him hydrated. We discussed the overall volume of fluid and how this can contribute to urgency/nocturia. We discussedmedications, but at this time have agreed that he is emptying well and will moderate soda first to see if this helps. I did not do a LITZY today given his other medical comorbidities. However, if he has worsening or persistent urinary symptoms, we will consider LITZY and possible PSA (although not sure if prostate cancer screening will increase the length and quality of his life given his other medical issues). All of the patients questions were answered to their apparent satisfaction. Rosa Baker APRN documented in this encounter Plan of Treatment Upcoming Encounters Date Type Specialty Care Team Description 05/26/2022 Office Visit Otolaryngology Ricardo Panda PA [facility] [address] [place], [place] [address] (Wo rk) 06/02/2022 Infusion Hematology and Oncology 06/16/2022 Infusion Hematology and Oncology 06/21/2022 Office Visit Neurology Tyler Rojas MD [facility] Neurology [place], [place] [phone] (Wo rk) 06/30/2022 Infusion Hematology and Oncology 07/14/2022 Infusion Hematology and Oncology 07/28/2022 Infusion Hematology and Oncology 08/11/2022 Infusion Hematology and Oncology 11/04/2022 Office Visit Rheumatology Dante Freedman PA [facility] RHEUMATOLOGY [place], [place] [address] (Wo rk) documented as of this encounter Visit Diagnoses Diagnosis Hydrocele - Primary Hydrocele, unspecified Lower urinary tract symptoms Other symptoms involving urinary system documented in this encounter Care Teams Vessel Traffic Officer Relationship Specialty Start Date End Date Dc Ibanez MD PCP - General 04/02/13 04/01/14 ANAMARIA [address] [place] [address] documented as of this encounter
--- OUTSIDE RECORDS SUMMARY | 2022-05-24 10:55 | XMS_ITS | Encounter Summary ---
:1955 Author Organization [facility] Address [facility] [place] [address] Care Team Providers Name Role Phone Dc Ibanez MD Primary Care Provider Encounter Details Date Type Department Care Team Description 11/22/2013 Follow-Up Neurology at [facility] Angel Boyd MD Tremor/tics (Primary [facility] Dx) [place] [address] NEUROLOGY DEPT. [phone] [place] [id number] (Wo rk) Social History Tobacco Use Types [...] Sign Reading Time Taken Comments Blood Pressure 128/54 11/22/2013 12:56 PM EDT Pulse 63 11/22/2013 12:56 PM EDT Temperature - - Respiratory Rate - - Oxygen Saturation - - Inhaled Oxygen Concentration - - Weight 148.3 kg (327 lb) 11/22/2013 12:56 PM EDT Height 190.5 cm (6' 3) 11/22/2013 12:56 PM EDT Body Mass Index 40.87 11/22/2013 12:56 PM EDT documented in this encounter Progress Notes Angel Boyd MD - 11/23/2013 7:26 AM EDT I saw Leroy Torres today in followup in the company of two family members. Leroy is becoming more accustomed to his bilateral leg prostheses. Obviously, having his second leg amputated was not entirely a positive experience, but now that he has properly-fitting prostheses, he is capable of some ambulation. Unfortunately over the winter, which was very enclosing for many patients with ambulatory difficulties, he gained weight. His glucose tolerance has declined and his ability to control his diabetes has diminished. He is working on that with a wheel filler. He is being closely followed by the Renal Service and, of course, Diabetology. As far as his tremor is concerned, it is actually under very good control at his current dose of Inderal. It is not completely gone, and some tasks, such as handwriting, are still limited, but certainly that is not his biggest problem right now. He continues to have some degree of phantom limb pain. It tends to be episodic for reasons that are not quite clear. Gabapentin seems to be helping. I would be reluctant to give him additional pain medicines, for obvious reasons. Fifteen minutes of our 25-minute visit were in supportive counseling and therapeutic planning with regard to his very difficult medical situation. documented in this encounter Plan of Treatment Upcoming Encounters Date Type Specialty Care Team Description 05/26/2022 Office Visit Otolaryngology Ricardo Panda PA [facility] [place] [address] (Wo gregg) 06/02/2022 Infusion Hematology and Oncology 06/16/2022 Infusion Hematology and Oncology 06/21/2022 Office Visit Neurology Tyler Rojas MD [facility] Dr [place]i [place] [phone] (Wo gregg) 06/30/2022 Infusion Hematology and Oncology 07/14/2022 Infusion Hematology and Oncology 07/28/2022 Infusion Hematology and Oncology 08/11/2022 Infusion Hematology and Oncology 11/04/2022 Office Visit Rheumatology Dante Freedman PA [facility] [address] [place] [address] (Wo rk) documented as of this encounter Visit Diagnoses Diagnosis Tremor/tics - Primary Abnormal involuntary movements documented in this encounter Care Teams Impress Associate Relationship Specialty Start Date End Date Dc Ibanez MD PCP - General 04/02/13 04/01/14 ANAMARIA [address] [place] [address] documented as of this encounter
--- OUTSIDE RECORDS SUMMARY | 2022-05-24 10:55 | XMS_ITS | Encounter Summary ---
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 manifestations, [place] [id number] uncontrolled [phone] (Wo rk) Social History Tobacco Use Types [...] this encounter Miscellaneous Notes Telephone Encounter - Jemima Mccarty RN - 08/08/2014 11:04 AM EST Leroy calls in for new prescription for Levemir. System looks like new prescription sent in on 05/31/14. Placed call to [facility] in [place], spoke with Brie who states they did not receive it transferred to pharmacist to call in. documented in this encounter Plan of Treatment Upcoming Encounters Date Type Specialty Care Team Description 05/26/2022 Office Visit Otolaryngology Ricardo Panda, PA [facility] [place] [address] (Wo rk) 06/02/2022 Infusion Hematology and Oncology 06/16/2022 Infusion Hematology and Oncology 06/21/2022 Office Visit Neurology Tyler Rojas MD [facility] Neurology [place], [place] [phone] (Wo rk) 06/30/2022 Infusion Hematology and Oncology 07/14/2022 Infusion Hematology and Oncology 07/28/2022 Infusion Hematology and Oncology 08/11/2022 Infusion Hematology and Oncology 11/04/2022 Office Visit Rheumatology Dante Freedman PA [facility] [place] [address] (Wo rk) documented as of this encounter Visit Diagnoses Diagnosis 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
--- OUTSIDE RECORDS SUMMARY | 2022-05-24 10:55 | XMS_ITS | Encounter Summary ---
:1955 Author Organization [facility] Address [facility] [place] [address] Care Team Providers Name Role Phone Dc Ibanez MD Primary Care Provider Reason for Visit Reason Comments Kidney Transplant Follow-up Encounter Details Date Type Department Care Team Description 02/25/2014 Follow-Up Solid Organ Transplant Alejo Garnett Need for prophylactic immunotherapy; at [facility] MD Thang Kidney replaced by transplant; [facility] Tra ns[address] [place] [phone] TRANSPLANT SURGERY [phone] [place] [phone] (Wo rk) Social History Tobacco Use Types [...] Sign Reading Time Taken Comments Blood Pressure 152/63 02/25/2014 10:56 AM EDT Pulse 60 02/25/2014 10:56 AM EDT Temperature 36.9 ??C (98.5 ??F) 02/25/2014 10:56 AM EDT Respiratory Rate - - Oxygen Saturation 97% 02/25/2014 10:56 AM EDT Inhaled Oxygen Concentration - - Weight 146.7 kg (323 lb 6.4 oz) 02/25/2014 10:56 AM EDT Height 190.5 cm (6' 3) 02/25/2014 10:56 AM EDT Body Mass Index 40.42 02/25/2014 10:56 AM EDT documented in this encounter Progress Notes Alejo Garnett MD - 02/20/2014 3:24 PM EDT [facility] Transplant Nephrology Follow Up Date: 02/25/2014 Patient: Leroy Torres Transplant Date: 02/29/08 Organ(s) Kidney [place] organ diagnosis: Diabetes Mellitus - Type II Days from Transplant: 6 years Transplant ID: Mr. Leroy Torres is a White Not nor 58 y.o. male who is Status Post Kidney transplantation. Patient referred by Dr. Xiao. Mr. Leroy Torres presents to clinic forroutine follow-up of care, for Kidney transplantation. History of Present Illness: Mr. Torres is here today for a routine follow up. He reports doing well. His activities have increased recently. Does a lot of outdoor activities including (rider) mowing about five acres of land. Doesnot use sunscreens. Overdue for colonoscopy. He also needs prostate examination and PSA determination, does not use sunscreen routinely, and could do better with his diabetic control. He denies any progression in his neuropathy, retinopathy, or vascular insufficiency. From Chart Review: 02/13/2014 Rosa Ayala APRN IMPRESSION: ?? Large left, intermittently uncomfortable probable hydrocele in patient with multiple other medical comorbidities including DM, COPD and prolonged hospital recovery s/p appendectomy here at [facility] In 05/2013 requiring ventillation. ?? Prior history of hydrocele drainage 2o years ago ?? Mild LUTS PLAN/RECOMMENDATION: ?? I have reviewed the above diagnosis with Mr. Leroy Torres. My recommendations include: ?? Scrotal support, tylenol for discomfort ?? We discussed his US findings and surgical management of hydroceles-either sclerosis (which may not work given the septations, and general risk of reaccumulation with drainage and sclerosis) and hydrocelectomy. At this time, given his symptoms and US imaging, as well as medical comorbidities, I would prefer to review his case with an Attending to discuss options of hydrocelectomy. We discussed the procedure of hydrocelectomy, including risks like bleeding, infection, readmission, injury to the testicle, surrounding structures, urinary tract. He is at the point he would like to consider surgery. Wonder about possibility of this being done under a block instead of general anesthesia given his lastsurgical experience. ?? I discussed a surgeon may want to see him back in clinic prior to making a final decision. He is content with this. ?? We discussed his PVR is low, that he drinks a lot of fluid (mostly soda). We discussed moderatingbladder irritants like soda and having him drink mostly water to help his urge but keep him hydrated. We discussed the overall volume of fluid and how this can contribute to urgency/nocturia. We discussed medications, but at this time have agreed that he is emptying well and will moderate soda first to see if this helps. ?? I did not do a LITZY today given his other medical comorbidities. However, if he has worsening or persistent urinary symptoms, we will consider LITZY and possible PSA (although not sure if prostate cancer screening will increase the length and quality of his life given his other medical issues). 01/18/2014 Donell Hernandez MD 1) DM2 - much improved control on higher dose of Basal insulin But also seems to be making a better diet effort and is more active now that he can walk on both legs with just a cane. No change. 2) bilateral bka Routine Health Maintenance: ??? Tetanus andTetanus booster UTD Vaccine (every 10 Years) ??? Colonoscopy Every 5 Years ??? Influenza (Flu) Vaccine Yearly ( virus only) ??? Hepatitis C Screening (B. [id number]) ??? Pneumovax Q5 years ??? Yearly ophthalmology exam ??? Biannual dental exam (with antibiotic prophylaxis) ??? Dermatology evaluation yearly ??? Dexascan on periodic basis every 9 years (along with yearly 24 hour urine testing) Additionally: Gender approiate yearly physicals, and regular check-ups with PCP. (Females -- Pap Smear (annually; if woman has undergone a hysterectomy and cervix removed the is no need for a speculum exam but a vaginal swab for histology is warranted for skin cancer; I prefer speculum exams as well for visual inspection for melanomas and other skin cancers. In the last 5 years 2 women have frommalignant melanoma, primary in vagina,) Hpv (prior to age 21, series given once if pre tx (this is alive virus) and Breast Ca Screen Every Year) (Males -- PSA every Year) Patient Active Problem List Diagnosis Code ??? [...] ?? Chronic large Hydrocele. Past Surgical History Procedure Date ??? Created [...] thru tib/fib 06/21/2011 ??AMPUTATION, BELOW-KNEE performed by NARAYAN GAMINO JR at [facility] MA[facility] OR ??? Lap, appendectomy 06/16/2013 LAPAROSCOPIC APPENDECTOMY performed by Angel Mccann MD at [facility] OR No family history on file. SOCIAL HISTORY: History Substance Use Topics ??? Smoking status: Former Smoker -- 2.0 packs/day for 20 years Types: Cigarettes Quit date: 01/19/1993 ??? Smokeless tobacco: Never Used ??? Alcohol Use: Yes Comment: rare Visit Vitals: BP 152/63 Pulse 60 Temp 36.9 ??C (98.5 ??F) (Oral) Ht 190.5 cm (6' 3) Wt 146.693 kg (323 lb6.4 oz) BMI 40.42 kg/m2 SpO2 97% Estimated Body mass index is 40.42 kg/(m^2) as calculated from the following: Height as of this encounter: 6' 3(1.905 m). Weight as of this encounter: 323 lb 6.4 oz(146.693 kg). Allergies: Penicillins; Iftikhar inhibitors; Clindamycin hcl; and Allergenic extracts Immunizations: Most Recent Immunizations Administered Date(s) Administered ??? Hepatitis B Vaccine, unspecified formulation 03/01/2005 ??? Influenza Vaccine, Whole 06/25/2008 ??? Pneumococcal Polyvalent 23 02/23/2012 ??? Td, adult 06/24/1990 Current Meds: Current Outpatient Prescriptions Medication Sig Dispense Refill ??? CELLCEPT 250 mg capsule Take 2 capsules by mouth 2 times daily. Kidney Transplant V42.0. Transplant Date; 02-29-08 120 capsule 11 ??? PROGRAF 1 mg capsule Take 1 capsule by mouth 2 times daily. KIDNEY TRANSPLANT V42.0. TRANSPLANT DATE - 02/29/2008 60 capsule 11 ??? insulin aspart (NOVOLOG FLEXPEN) pen injection Inject 50-60 Units subcutaneously 4 times daily. 75 mL 11 ??? propranolol (INDERAL) 80 mg tablet Take 1 tablet by mouth 2 times daily. 360 tablet prn ??? fluticasone (FLONASE) 50 mcg/actuation nasal spray 2 sprays by Each Nare route as needed. 64 g 11 ??? insulin detemir (LEVEMIR) pen injection Inject 60 Units subcutaneously 2 times daily. ??? Insulin [place], Disposable, (BD INSULIN PEN NEEDLE UF SHORT) 31 X 5 Ndle Please use as directed. 3 month refill = 450 PEN needles. 450 each 4 ??? gabapentin (NEURONTIN) 300 mg capsule Take 5 capsules by mouth daily. 2 tabs in the AM and 3 tabs in the PM 450 capsule 3 ??? miconazole (MICOTIN) 2 % powder [...] capsule Take 40 mg by mouth daily. Labs: Lab Results Component Value Date WBC 6.1 02/25/2014 HCT 38.2* 02/25/2014 HGB 12.4* 02/25/2014 PLATELET 180 02/25/2014 K 4.5 02/25/2014 CREATININE 1.58* 02/25/2014 BUN 25* 02/25/2014 GLUCOSE 287* 02/25/2014 PHOS 3.1 02/25/2014 MAGNESIUM 0.61* 02/25/2014 AMYLASE 8* 06/18/2013 LIPASE 9 06/18/2013 HA1C 8.4* 01/18/2014 Urinalysis: Component Value Date/Time SPGRAVITYUA 1.009 02/25/2014 1014 PHUADIP 5.5 02/25/2014 1014 PROTEINUADIP Negative 02/25/2014 1014 GLUCOSEU 150* 02/25/2014 1014 KETONESUA Negative 02/25/2014 1014 UROBILIUADIP Normal 02/25/2014 1014 BLOODUADIP Negative 02/25/2014 1014 NITRATEUA Negative 02/25/2014 1014 LEUKOESTERUA Negative 02/25/2014 1014 WBCUA 3 06/21/2013 1201 RBCU 3 06/21/2013 1201 BILIRUBINUA Negative 02/25/2014 1014 Review of Systems: Negative. 10 systems reviewed [...] Musculoskeletal: negative Neurological: intact Skin: no rashes Assessment, Plan and Recommendations: Leroy Torres is Status Post Kidney transplantation. Mr. Leroy Torres is maintaining excellent graft function. Patient remains well hydrated. Patient is encouraged to continue with 3 +liters of fluid intake per day. I also encouraged patient to keep up with all recommended health maintenance visits, routine lab testing and screenings. - needs appt for colonoscopy, q 5 yr for transplant recipients -follow up with PCP for prostate exams and PSA which are annual tests for all male transplant recipients -cellcept and prograf refills. -counseled on cancer risk in transplant patients. (33% risk for skin CA, 20% risk for lymphoma, etc.) Immunosuppression: Prograf: 1mg twice daily. Cellcept: 500mg [...] are not limited to, the for mentioned. RTC: One year. Pharmacy needs addressed. No additional concerns today. documented in this encounter Plan of Treatment Upcoming Encounters Date Type Specialty Care Team Description 05/26/2022 Office Visit Otolaryngology Ricardo Panda PA [facility] [address] [place] [place], [place] [address] (Wo rk) 06/02/2022 Infusion Hematology and Oncology 06/16/2022 Infusion Hematology and Oncology 06/21/2022 Office Visit Neurology Tyler Rojas MD [facility] Neurology [place], [place] [phone] (Wo rk) 06/30/2022 Infusion Hematology and Oncology 07/14/2022 Infusion Hematology and Oncology 07/28/2022 Infusion Hematology and Oncology 08/11/2022 Infusion Hematology and Oncology 11/04/2022 Office Visit Rheumatology Dante Freedman PA [facility] [place], [place] [address] (Wo rk) documented as of this encounter Procedures Procedure Name Priority Date/Time Associated Diagnosis Comme nts BK QUANT URINE RESULT Routine 02/25/2014 10:14 Need for Re sults for this AM EDT prophylactic procedure are i n immunotherapy the results Kidney replaced by section. transplant BKV QUANT URINE Routine 02/25/2014 10:14 Need for AM EDT prophylactic immunotherapy Kidney replaced by transplant PROTEIN/CREATININE STAT 02/25/2014 10:14 Need for Resul ts for this RATIO, URINE AM EDT prophylactic procedure are i n immunotherapy the results Kidney replaced by section. transplant CREATININE, URINE, Routine 02/25/2014 10:14 Need for Resul ts for this RANDOM AM EDT prophylactic procedure are i n immunotherapy the results Kidney replaced by section. transplant URINALYSIS WITHOUT STAT 02/25/2014 10:14 Need for Resul ts for this MICROSCOPIC AM EDT prophylactic procedure are i n immunotherapy the results Kidney replaced by section. transplant BK QUANT BLOOD RESULT STAT 02/25/2014 10:01 Need for Re sults for this AM EDT prophylactic procedure are i n immunotherapy the results Kidney replaced by section. transplant PTH STAT 02/25/2014 10:01 Need for Results for this AM EDT prophylactic procedure are i n immunotherapy the results Kidney replaced by section. transplant BKV QUANT BLOOD STAT 02/25/2014 10:01 Need for AM EDT prophylactic immunotherapy Kidney replaced by transplant HEMOGRAM STAT 02/25/2014 10:01 Need for Results for this AM EDT prophylactic procedure are i n immunotherapy the results Kidney replaced by section. transplant DIFFERENTIAL, STAT 02/25/2014 10:01 Need for Results fo r this AUTOMATED AM EDT prophylactic procedure are i n immunotherapy the results Kidney replaced by section. transplant TACROLIMUS LEVEL STAT 02/25/2014 10:01 Need for Results for this AM EDT prophylactic procedure are i n immunotherapy the results Kidney replaced by section. transplant 1,25-DIHYDROXYCHOLECAL STAT 02/25/2014 10:01 Need for R esults for this CIFEROL AM EDT prophylactic procedure are i n immunotherapy the results Kidney replaced by section. transplant VITAMIN D, 25-HYDROXY STAT 02/25/2014 10:01 Need for Re sults for this AM EDT prophylactic procedure are i n immunotherapy the results Kidney replaced by section. transplant RETICULOCYTE COUNT STAT 02/25/2014 10:01 Need for Resul ts for this AM EDT prophylactic procedure are i n immunotherapy the results Kidney replaced by section. transplant CBC (WITH DIFF) STAT 02/25/2014 10:01 Need for AM EDT prophylactic immunotherapy Kidney replaced by transplant URIC ACID STAT 02/25/2014 10:01 Need for Results for this AM EDT prophylactic procedure are i n immunotherapy the results Kidney replaced by section. transplant PHOSPHORUS STAT 02/25/2014 10:01 Need for Results for this AM EDT prophylactic procedure are i n immunotherapy the results Kidney replaced by section. transplant MAGNESIUM STAT 02/25/2014 10:01 Need for Results for this AM EDT prophylactic procedure are i n immunotherapy the results Kidney replaced by section. transplant LIPID PANEL (REFLEX STAT 02/25/2014 10:01 Need for Resu lts for this DIRECT LDL) AM EDT prophylactic procedure are i n immunotherapy the results Kidney replaced by section. transplant COMPREHENSIVE STAT 02/25/2014 10:01 Need for Results fo r this METABOLIC PANEL AM EDT prophylactic procedure ar e in (NON-FASTING) immunotherapy the results Kidney replaced by section. transplant U24 HRS AND VOLUME Routine 02/25/2014 7:00 Result s for this AM EDT procedure are i n the results section. URIC ACID, URINE, 24 Routine 02/25/2014 7:00 Need for Resu lts for this HOUR AM EDT prophylactic procedure are i n immunotherapy the results Kidney replaced by section. transplant CALCIUM, URINE, 24 Routine 02/25/2014 7:00 Need for Result s for this HOUR AM EDT prophylactic procedure are i n immunotherapy the results Kidney replaced by section. transplant PROTEIN, URINE, 24 Routine 02/25/2014 7:00 Need for Result s for this HOUR AM EDT prophylactic procedure are i n immunotherapy the results Kidney replaced by section. transplant PHOSPHORUS, URINE, 24 Routine 02/25/2014 7:00 Need for Res ults for this HOUR AM EDT prophylactic procedure are i n immunotherapy the results Kidney replaced by section. transplant CREATININE CLEARANCE, Routine 02/25/2014 7:00 Need for Res ults for this URINE, 24 HOUR AM EDT prophylactic procedure are in immunotherapy the results Kidney replaced by section. transplant documented in this encounter Results BK Quant Urine Result (02/25/2014 10:14 AM EDT) Component Value Ref Test Analysis Performed At [facility] Range Method Time Signature BKV Urine Not Detected CERNER Result [facility] BKV Urine BK Virus Urine Result Interpretation [facility] Interp [facility] Result: BK Virus Not Detected log concentration: Not detected Assay Range: urine: 3.04-9.04 log copies/mL (1.1x10^3 - 1.1x10^9 copies/mL ) Results are reported as log copies/mL. ??Changes of less than 1.0 log between serial samples may not be clinically significant. Methods: Quantitative real-time polymerase chain reaction (PCR) with of viral DNA isolated from urine was performed using [employer] BKV (ASR) reagents and the Applied Sensegon 7500 Fast Real-Time PCR System. In addition, the PCR product sequence is confirmed using physical properties (melt curve analysis). This test was developed and its performance determined by the [facility] Molecular Pathology Laboratory. It has [...] high complexity clinical testi ng. Comment: [VERIFIED DATE]02.28.14 Verified By:Nicky Mckeon I (Electronic Signature) Specimen Anatomical Collection Method Collection Time Receive d Time (Source) Location / / Volume Laterality Urine specimen 02/25/2014 10:14 4 (specimen) AM EDT 11:09 AM EDT Resulting Agency Comment Spec In Lab Alejo Garnett MD HEMATOLOGY ORDERABLES Performing Organization Address City/[facility]/ZIP Code Phon e Number [address] CERNER MILLENNIUM Creatinine, urine, random (02/25/2014 10:14 AM EDT) P athologist Signature U Creatinine 62 mg/dL CERNER MILLENNIUM Specimen Anatomical Collection Method Collection Time Receive d Time (Source) Location / / Volume Laterality Urine specimen 02/25/2014 10:14 4 (specimen) AM EDT 10:23 AM EDT Resulting Agency Comment Spec In Lab Alejo Garnett MD URINE ORDERABLES Performing Organization Address City/[facility] Code Phon e Number [address] CERNER MILLENNIUM (ABNORMAL) Protein/Creatinine Ratio, urine (02/25/2014 10:14 AM EDT) P athologist Signature U Creatinine 62 mg/dL CERNER MILLENNIUM U Protein Ran 14 (H) 0 - 12 CERNER mg/dL MILLENNIUM Prot/Cre Ratio 0.2 ratio CERNER MILLENNIUM Specimen Anatomical Collection Method Collection Time Receive d Time (Source) Location / / Volume Laterality Urine specimen 02/25/2014 10:14 4 (specimen) AM EDT 10:23 AM EDT Resulting Agency Comment Spec In Lab Alejo Garnett MD URINE ORDERABLES Performing Organization Address City/[facility] Phon e Number [address] CERNER MILLENNIUM (ABNORMAL) Urinalysis without microscopic (02/25/2014 10:14 AM EDT) [facility] gist Method Time Signature Glucose UA 150 (A) Negative CERNER mg/dL MILLENNIUM Protein UA Negative Negative CERNER mg/dL MILLENNIUM Bilirubin UA Negative Negative CERNER mg/dL MILLENNIUM Comment: Clinical correlation required for positi ve Urine Bilirubin results as false positive may occur with some drugs and d rug related products. If a false positive is suspected a serum total bili reyna should be considered if clinically indicated. Urobilinogen UA Normal Normal mg/dL CERNER MILL ENNIUM pH UA 5.5 5.0 - 8.0 CERNER MILLENNIUM Blood UA Negative Negative mg/dL CERNER MILLENNI UM Ketones UA Negative Negative mg/dL CERNER MILLENN IUM Nitrite UA Negative Negative CERNER MILLENNIUM Leukocytes UA Negative Negative mcL [facility] NIUM Appearance UA Clear Clear CERNER MILLENNIU M Spec [place] UA 1.009 1.002 - 1.030 CERNER MIL LENNIUM Color UA Light Yellow Yellow [facility] Specimen Anatomical Collection Method Collection Time Receive d Time (Source) Location / / Volume Laterality Urine specimen 02/25/2014 10:14 4 (specimen) AM EDT 10:23 AM EDT Resulting Agency Comment Spec In Lab Alejo Garnett MD URINE ORDERABLES Performing Organization Address City/State/ZIP Code Phon e Number [place] [phone] [facility] BK Quant Blood Result (02/25/2014 10:01 AM EDT) Component Value Ref Test Analysis Performed At [facility] Range Method Time Signature BKV Blood Not Detected [facility] Result [facility] BKV Blood BK Virus Blood Result Interpretation [facility] MILLENNIUM Result: BK Virus not detected log concentration (copies/mL): ??Not detected Assay Range: ??plasma: 3.04-9.04 log gyroscope technician ies/mL (1.1x10^3 - 1.1x10^9 copies/mL) Results are reported as log copies/mL. ??Changes of less than 1.0 log between serial samples may not be clinically significant. Methods: Quantitative real-time polymerase chain react ion (PCR) of viral DNA isolated from plasma was performed using [employer] BKV (ASR) re agents and the Applied Trend[employer] FAST Real-Time PCR System. In additi on, the ??PCR product sequence is confirmed using physical properties (fredo ting curve analysis). This test was developed and its performance determined by the [facility] Molecular Pathology Laboratory. It has not been cl eared or approved by the U.S. Food and Drug Administration. This test is used f or clinical purposes and should not be considered investigational or for research purposes. [facility] is certified by the Clinical Laboratory Improvement Act of 1988 and as such is allowed to perform high complexity clinical testi ng. Comment: [VERIFIED DATE]02.28.14 Verified By:Nicky Mckeon I (Electronic Signature) Specimen Anatomical Collection Method Collection Time Receive d Time (Source) Location / / Volume Laterality Blood specimen 02/25/2014 10:01 4 (specimen) AM EDT 11:08 AM EDT Resulting Agency Comment Spec In Lab Alejo Garnett MD HEMATOLOGY ORDERABLES Performing Organization Address City/State/ZIP Code Phon e Number [place] [phone] CERNER MILLENNIUM Differential, Automated (02/25/2014 10:01 AM EDT) P athologist Signature Neutrophils % 64.3 34.0 - CERNER 71.0 % MILLENNIUM Neutr Abs (ANC) 3.93 1.50 - CERNER 6.30 MILLENNIUM x10(3)/mcL Lymphocytes % 22.9 19.0 - CERNER 53.0 % MILLENNIUM Lymphocytes Abs 1.4 1.0 - 3.6 CERNER x10(3)/mcL MILLENNIUM Monocytes % 8.5 4.0 - 13.0 CERNER % MILLENNIUM Monocyte Abs 0.5 0.2 - 1.0 CERNER x10(3)/mcL MILLENNIUM Eosinophils % 3.4 0.0 - 7.0 CERNER % MILLENNIUM Eosinophils Abs 0.2 0.0 - 0.5 CERNER x10(3)/mcL MILLENNIUM Basophils % 0.7 0.0 - 2.0 CERNER % MILLENNIUM Basophils Abs 0.0 0.0 - 0.2 CERNER x10(3)/mcL MILLENNIUM Immature Gran % 0.20 0.00 - CERNER 0.66 % MILLENNIUM Comment: Immature granulocytes(IG's)percentage an d absolute [...] Location / / Volume Laterality Blood specimen 02/25/2014 10:01 4 (specimen) AM EDT 10:14 AM EDT Resulting Agency Comment Spec In Lab Alejo Garnett MD HEMATOLOGY ORDERABLES Performing Organization Address City/[facility]/ZIP Code Phon e Number [place] [phone] CERNER MILLENNIUM (ABNORMAL) Hemogram (02/25/2014 10:01 AM EDT) P athologist Signature WBC 6.1 4.0 - 10.0 CERNER x10(3)/mcL MILLENNIUM RBC 3.94 (L) 4.63 - CERNER 6.08 MILLENNIUM x10(6)/mcL Hemoglobin 12.4 (L) 13.7 - CERNER 17.5 gm/dL MILLENNIUM Hematocrit 38.2 (L) 40.0 - CERNER 51.0 % MILLENNIUM MCV 97.0 (H) 79.0 - CERNER 92.0 fL MILLENNIUM MCH 31.5 25.6 - CERNER 32.2 pg MILLENNIUM MCHC 32.5 32.0 - CERNER 36.5 gm/dL MILLENNIUM Platelets 180 145 - 370 CERNER x10(3)/mcL MILLENNIUM RDWSD 49.2 (H) 35.0 - CERNER 46.0 fL MILLENNIUM RDWCV 14.0 10.9 - CERNER 14.4 % MILLENNIUM MPV 8.8 (L) 9.0 - 12.0 CERNER fL MILLENNIUM Specimen Anatomical Collection Method Collection Time Receive d Time (Source) Location / / Volume Laterality Blood specimen 02/25/2014 10:01 4 (specimen) AM EDT 10:14 AM EDT Resulting Agency Comment Spec In Lab Alejo Garnett MD HEMATOLOGY ORDERABLES Performing Organization Address City/State/ZIP Code Phon e Number [place] [phone] CERNER MILLENNIUM (ABNORMAL) VIT D Total Evaluation (02/25/2014 10:01 AM EDT) athologist Signature 25-OH Vit D 28 (L) 30 - 100 CERNER Total ng/mL [facility] Comment: Deficient <10 ng/mL Insufficient 10 to 29 ng/mL Sufficient 30 to 100 ng/mL Potential Intoxication >100 ng/mL According to the [place] National Osteoporosi s Foundation, Vitamin D concentrations >30 ng/mL are sufficient to protect bone health. ??The National Kidney Foundation has similarly stated that pat ients with Vitamin D concentrations <30ng/mL should be considered to be insu fficient or deficient. http://[employer]/DHMCnatlkidneyfoundat ion http://[employer]/DHMCVitD The [employer] Vitamin D Immunoassay detec ts both 25-OH Vitamin D2 and 25-OH Vitamin D3, but only a total Vitamin D c oncentration is reported. Specimen Anatomical Collection Method Collection Time Receive d Time (Source) Location / / Volume Laterality Blood specimen 02/25/2014 10: 4 (specimen) AM EDT 10:14 AM EDT Resulting Agency Comment Spec In Lab Alejo Garnett MD CHEMISTRY ORDERABLES Performing Organization Address City/[facility]/[place] [address] [facility] 1,25-dihydroxycholecalciferol (02/25/2014 10:01 AM EDT) athologist Signature Vit D 1,25 35 18 - 64 CERNER pg/mL [facility] Comment: Test Performed by: [address] [address] Radiology Receptionist: Narayan richards III, M.D. Specimen Anatomical Collection Method Collection Time Receive d Time (Source) Location / / Volume Laterality Blood specimen 02/25/2014 10:01 4 (specimen) AM EDT 12:23 PM EDT Resulting Agency Comment Spec In Lab Alejo Garnett MD CHEMISTRY ORDERABLES Performing Organization Address City/[facility]/ZIP Code Phon e Number [address] CERNER MILLENNIUM PTH (02/25/2014 10:01 AM EDT) P athologist Signature PTH 62 15 - 65 CERNER pg/mL MILLENNIUM Specimen Anatomical Collection Method Collection Time Receive d Time (Source) Location / / Volume Laterality Blood specimen 02/25/2014 10: 4 (specimen) AM EDT 10:14 AM EDT Resulting Agency Comment Spec In Lab Alejo Garnett MD CHEMISTRY ORDERABLES Performing Organization Address City/[facility]/ZIP Code Phon e Number [address] CERNER MILLENNIUM (ABNORMAL) Reticulocyte Count (02/25/2014 10:01 AM EDT) [facility] Method Time Signature Retic Ct % 2.3 0.5 - 2.4 CERNER % MILLENNIUM Retic Ct Abs 0.090 0.027 - CERNER 0.095 MILLENNIUM x10(6)/mc L Immature Retic% 18.4 (H) 2.3 - CERNER 15.9 % MILLENNIUM Reticulated Hgb 31.5 28.5 - CERNER 38.9 pg MILLENNIUM Plat Immature % 1.2 0.0 - 7.4 CERNER % MILLENNIUM Specimen Anatomical Collection Method Collection Time Receive d Time (Source) Location / / Volume Laterality Blood specimen 02/25/2014 10: 4 (specimen) AM EDT 10:14 AM EDT Resulting Agency Comment Spec In Lab Alejo Garnett MD HEMATOLOGY ORDERABLES Performing Organization Address City/[facility]/ZIP Code Phon e Number [address] CERNER MILLENNIUM Tacrolimus level (02/25/2014 10:01 AM EDT) P athologist Signature Tacrolimus Lvl 5.1 ng/mL CERNER MILLENNIUM Comment: Trough therapeutic: 5-15 ng/mL Specimen Anatomical Collection Method Collection Time Receive d Time (Source) Location / / Volume Laterality Blood specimen 02/25/2014 10:01 4 (specimen) AM EDT 12:15 PM EDT Resulting Agency Comment Spec In Lab Alejo Garnett MD CHEMISTRY ORDERABLES Performing Organization Address City/[facility] Phon e Number [address] CERNER MILLENNIUM Uric acid (02/25/2014 10:01 AM EDT) P athologist Signature Uric Acid 8.4 3.5 - 8.5 CERNER mg/dL MILLENNIUM Specimen Anatomical Collection Method Collection Time Receive d Time (Source) Location / / Volume Laterality Blood specimen 02/25/2014 10:01 4 (specimen) AM EDT 10:14 AM EDT Resulting Agency Comment Spec In Lab Alejo Garnett MD CHEMISTRY ORDERABLES Performing Organization Address [facility] Phon e Number [address] CERNER MILLENNIUM (ABNORMAL) Magnesium (02/25/2014 10:01 AM EDT) P athologist Signature Magnesium 0.61 (L) 0.69 - 1.07 CERNER mmol/L MILLENNIUM Specimen Anatomical Collection Method Collection Time Receive d Time (Source) Location / / Volume Laterality Blood specimen 02/25/2014 10:01 4 (specimen) AM EDT 10:14 AM EDT Resulting Agency Comment Spec In Lab Alejo Garnett MD CHEMISTRY ORDERABLES Performing Organization Address City/[facility]/ZIP Code Phon e Number [address] CERNER MILLENNIUM Phosphorus (02/25/2014 10:01 AM EDT) P athologist Signature Phosphorus 3.1 2.5 - 4.5 CERNER mg/dL MILLENNIUM Specimen Anatomical Collection Method Collection Time Receive d Time (Source) Location / / Volume Laterality Blood specimen 02/25/2014 10:01 4 (specimen) AM EDT 10:14 AM EDT Resulting Agency Comment Spec In Lab Alejo Garnett MD CHEMISTRY ORDERABLES Performing Organization Address City/State/ZIP Code [place] [address] HOLLI BALLARDIUM (ABNORMAL) Lipid panel (fasting) (02/25/2014 10:01 AM EDT) P athologist Signature Chol, Total 120 <=199 mg/dL CERNER MILLENNIUM Comment: Recommendations of the NCEP Adult Treatm ent Panel for the following risk cutoff thresholds for the [place] popul[place] n: Desirable: <200 mg/dL Borderline High: 200-239 mg/dL High: > or = 240 mg/dL Triglycerides 231 (H) <=149 mg/dL CERDINH MILLENN IUM Comment: Reference Range: Normal triglycerides: ??<150 mg/dL Borderline high: ??150-199 mg/dL High: ??200-499 mg/dL Very high: ??>na=169 mg/dL SERENA 2001; 285(19):[phone] HDL 22 (L) >=40 mg/dL CERDINH COLEENNIUM Comment: Reference range: ??Low HDL: ?? < 40 mg/dL ??Normal: ?40-60 mg/dL ??Desirable: > 60 mg/dL SERENA 2001; 285(19):6794-1402 LDL Cholesterol 52 <=99 mg/dL HOLLI JASON Comment: Reference range: ?? Optimal: ?<100 mg/dL ?? Near Optimal/Above Optimal: ?? 100-1 29 mg/dL ?? Borderline high: ?130-159 mg/dL ?? High: ? 160-189 mg/dL ?? Very high: ?>ru=135 mg/dL SERENA 2001: 285(19):7954-3684 Chol/HDL Ratio 5.5 ratio CERNER MILLENNI UM Comment: A Cholesterol to HDL ratio below 4:1 is desirable. ??Studies suggest that increased CAD risk occurs at ratios abov e 5 for females and above 6 for men. ? [place] Heart Association ??(htt p://www.americanheart.org) ? [place] Int Med, 1994; 121:641 ? AM J Med, 1998; 105(1A):48S Specimen Anatomical Collection Method Collection Time Receive d Time (Source) Location / / Volume Laterality Blood specimen 02/25/2014 10:01 4 (specimen) AM EDT 10:14 AM EDT Resulting Agency Comment Spec In Lab Alejo Garnett MD CHEMISTRY ORDERABLES Performing Organization Address City/State/ZIP Code Phon e Number [place] [id number] CERNER MILLENNIUM (ABNORMAL) Comprehensive metabolic panel (non-fasting) (02/25/2014 10:01 AM EDT) P athologist Signature Glucose Lvl 287 (H) 60 - 199 CERNER mg/dL MILLENNIUM Comment: Diabetes: >=200 mg/dL plus symp toms BUN 25 (H) 10 - 20 mg/dL CERNER MILLENNIU M Creatinine 1.58 (H) 0.80 - 1.50 mg/dL CERNER MILL ENNIUM Comment: Please note that the pediatric reference intervals supplied above were not validated at [facility]. Results from pediatri c patients should be interpreted in conjunction to the patient's age, height and muscle mass. Sodium 136 135 - 145 mmol/L CERNER OMKAR NIUM Potassium 4.5 3.5 - 5.0 mmol/L CERNER OMKAR NIUM Comment: Please note: ??Patients with WBC >100,00 0 may have falsely elevated Potassium levels. ??For accurate Potassium quantif ication in these patients send serum separator tube (gold top) for subsequent determinations. ??Contact the Clinical Chemistry Laboratory if there are any qu estions. Chloride 102 98 - 107 mmol/L CERNER MILLENN IUM CO2 26 22 - 31 mmol/L CERNER MILLENNI UM Anion Gap 8 5 - 15 mmol/L CERNER MILLENNIU M Calcium 9.6 8.5 - 10.5 mg/dL CERNER OMKAR NIUM Total Protein 7.9 6.4 - 8.3 gm/dL CERNER MIL LENNIUM Albumin 3.7 3.2 - 5.2 gm/dL CERNER MILLENN IUM AST 14 0 - 39 unit/L CERNER MILLENNIU M ALT 16 0 - 55 unit/L CERNER MILLENNIU M Alk Phos 121 (H) 40 - 120 unit/L CERNER MILLENN IUM Total Bilirubin 0.4 0.2 - 1.3 mg/dL CERNER M ILLENNIUM Bili, Direct 0.1 0.0 - 0.3 mg/dL CERNER MILL ENNIUM Estimated GFR 45 (L) >=60 CERNER MILLENNIU M Comment: This [...] the following links into your internet browser. [email or web address] [email or web address] Specimen Anatomical Collection Method Collection Time Receive d Time (Source) Location / / Volume Laterality Blood specimen 02/25/2014 10:01 4 (specimen) AM EDT 10:14 AM EDT Resulting Agency Comment Spec In Lab Alejo Garnett MD CHEMISTRY ORDERABLES Performing Organization Address City/State/[place] [address] HOLLI BALLARDIUM U24 Hrs and Volume (02/25/2014 7:00 AM EDT) P athologist Signature Hours 24 hour(s) CERNER Collected MILLENNIUM Urine TV (ml) 3900 mL DELLANER MILLENNIUM Specimen Anatomical Collection Method Collection Time Receive d Time (Source) Location / / Volume Laterality Urine specimen 02/25/2014 7:00 AM 014 (specimen) EDT 12:19 PM EDT Resulting Agency Comment Spec In Lab Alejo Garnett MD CHEMISTRY ORDERABLES Performing Organization Address City/State/[place] [address] CERNER MILLENNIUM (ABNORMAL) Protein, urine, 24 hour (02/25/2014 7:00 AM EDT) Analysis Performed At Patho logist Time Signature U24 Prot Conc 10 <=80 mg/dL CERNER MILLENNIUM U24 Prot Calc 0.39 (H) <=0.15 CERNER gm/24hr MILLENNIUM Specimen Anatomical Collection Method Collection Time Receive d Time (Source) Location / / Volume Laterality Urine specimen 02/25/2014 7:00 AM 014 (specimen) EDT 12:19 PM EDT Resulting Agency Comment Spec In Lab Alejo Garnett MD URINE ORDERABLES Performing Organization Address City/State/ZIP Code Phon e Number [address] CERNER MILLENNIUM (ABNORMAL) Uric acid, urine, 24 hour (02/25/2014 7:00 AM EDT) Analysis Performed At Path logis Time Signature U24 Uric Conc 25.1 mg/dL CERNER MILLENNIUM U24 Uric Calc 0.98 (H) 0.25 - CERNER 0.80 MILLENNIUM gm/24hr Specimen Anatomical Collection Method Collection Time Receive d Time (Source) Location / / Volume Laterality Urine specimen 02/25/2014 7:00 AM 014 (specimen) EDT 12:19 PM EDT Resulting Agency Comment Spec In Lab Alejo Garnett MD URINE ORDERABLES Performing Organization Address City/State/ZIP Code Phon e Number [address] CERNER MILLENNIUM Calcium, urine, 24 hour (02/25/2014 7:00 AM EDT) P athologist Signature U24 Ca Conc 2.1 mg/dL CERNER MILLENNIUM U24 Ca Calc 81.9 50.0 - CERNER 300.0 MILLENNIUM mg/24hr Comment: Reference Range: 50.0-300.0 mg/ 24 hour based on diet. Specimen Anatomical Collection Method Collection Time Receive d Time (Source) Location / / Volume Laterality Urine specimen 02/25/2014 7:00 AM 014 (specimen) EDT 12:19 PM EDT Resulting Agency Comment Spec In Lab Alejo Garnett MD URINE ORDERABLES Performing Organization Address City/[facility]/ZIP Code Phon e Number [address] CERNER MILLENNIUM Phosphorus, urine, 24 hour (02/25/2014 7:00 AM EDT) P athologist Signature U24 Phos Conc 25.6 mg/dL CERNER MILLENNIUM U24 Phos Calc 1.0 0.4 - 1.3 CERNER gm/24hr MILLENNIUM Specimen Anatomical Collection Method Collection Time Receive d Time (Source) Location / / Volume Laterality Urine specimen 02/25/2014 7:00 AM 014 (specimen) EDT 12:19 PM EDT Resulting Agency Comment Spec In Lab Alejo Garnett MD URINE ORDERABLES Performing Organization Address City/[facility]/[place] [address] CERNER MILLENNIUM (ABNORMAL) Creatinine Clearance, urine, 24 hour (02/25/2014 7:00 AM EDT) Analysis Performed At Patho logist Time Signature Creat 117 90 - 139 CERNER Clearance mL/min MILLENNIUM U24 Creat Conc 68 mg/dL CERNER MILLENNIUM U24 Creat Calc 2.65 (H) 0.80 - CERNER 1.90 MILLENNIUM gm/24hr Specimen Anatomical Collection Method Collection Time Receive d Time (Source) Location / / Volume Laterality Urine specimen 02/25/2014 7:00 AM 014 (specimen) EDT 12:19 PM EDT Resulting Agency Comment Spec In Lab Alejo Garnett MD URINE ORDERABLES Performing Organization Address City/[facility]/[place] [address] CERNER MILLENNIUM documented in this encounter Visit Diagnoses Diagnosis Need for prophylactic immunotherapy Kidney replaced by transplant Transplanted kidney Kidney replaced by transplant documented in this encounter Care Teams Boiling House Hand Relationship Specialty Start Date End Date Dc Ibanez MD PCP - General 04/02/13 04/01/14 ANAMARIA [address] [place] [address] documented as of this encounter
--- OUTSIDE RECORDS SUMMARY | 2022-05-24 10:55 | XMS_ITS | Encounter Summary ---
:1955 Author Organization [facility] [place] [address] Care Team Providers Name Role Phone Dc Ibanez MD Primary Care Provider Encounter Details Date Type Department Care Team Description 02/25/2014 Hospital Encounter Laboratory Violetta Sanford MD [address] [place] [address] [phone] (Wo rk) Social History Tobacco Use Types [...] pen injection subcutaneously 2 times daily. Insulin [place], Please use as 450 each 4 11/07/201304/19 [...] Panda PA [facility] [address] [place], [place] [address] (Wo rk) 06/02/2022 Infusion Hematology and Oncology 06/16/2022 Infusion Hematology and Oncology 06/21/2022 Office Visit Neurology Tyler Rojas MD [facility] Neurology [place], [place] [phone] (Wo rk) 06/30/2022 Infusion Hematology and Oncology 07/14/2022 Infusion Hematology and Oncology 07/28/2022 Infusion Hematology and Oncology 08/11/2022 Infusion Hematology and Oncology 11/04/2022 Office Visit Rheumatology Dante Freedman PA [facility] [place], [place] [address] (Wo rk) documented as of this encounter Procedures Procedure Name Priority Date/Time Associated Diagnosis Comme nts U ALBUMIN/CRE RATIO Routine 02/25/2014 10:14 AM R esults for this EDT procedure are i n the results section. TSH Routine 02/25/2014 10:01 AM Results for this EDT procedure are i n the results section. documented in this encounter Results Microalbumin, urine, random (02/25/2014 10:14 AM EDT) P athologist Signature U Creatinine 61 mg/dL CERNER MILLENNIUM U Albumin Conc, 36.0 mg/L CERNER Random MILLENNIUM Alb/Cr Ratio, 59 mcg/mg Cr CERNER Random MILLENNIUM Comment: Reference Range* Random collection (mcg/mg creatinine) Normal ?<30 Microalbuminuria ?? 30 - 300 Clinical Albuminuria ?? >300 *[place] [employer]. Diabetic Nephropathy. Diabetes Care 1997;(Suppl 1):S24-S27 Exercise within 24 hour, infection, fe darrell, CHF, marked hyperglycemia, and marked hypertension may elevate urinary albumin excretion over baseline values. Specimen Anatomical Collection Method Collection Time Receive d Time (Source) Location / / Volume Laterality Urine specimen 02/25/2014 10:14 4 (specimen) AM EDT 10:23 AM EDT Resulting Agency Comment Spec In Lab Violetta Sanford MD URINE ORDERABLES Performing Organization Address City/[facility]/ZIP Code Phon e Number [address] CERNER MILLENNIUM TSH (02/25/2014 10:01 AM EDT) P athologist Signature TSH 2.91 0.27 - 4.20 CERNER mcIU/mL MILLENNIUM Specimen Anatomical Collection Method Collection Time Receive d Time (Source) Location / / Volume Laterality Blood specimen 02/25/2014 10:01 4 (specimen) AM EDT 10:14 AM EDT Resulting Agency Comment Spec In Lab Violetta Sanford MD CHEMISTRY ORDERABLES Performing Organization Address City/[facility]/ZIP Code Phon e Number [address] CERNER MILLENNIUM documented in this encounter Visit Diagnoses Not on filedocumented in this encounter Care Teams Client Analyst Relationship Specialty Start Date End Date Dc Ibanez MD PCP - General 04/02/13 04/01/14 ANAMARIA [address] [place] [address] documented as of this encounter
--- OUTSIDE RECORDS SUMMARY | 2022-05-24 10:55 | XMS_ITS | Encounter Summary ---
:1955 Author Organization [facility] [place] [address] Care Team Providers Name Role Phone Violetta Sanford MD Primary Care Provider Encounter Details Date Type Department Care Team Description 04/10/2014 Hospital Encounter Same Day Program at Diomedes Lemus MD [facility] [place] [address] [place] [address] [phone] Social History Tobacco Use Types Packs/Day Years [...] pen injection subcutaneously 2 times daily. Insulin [place], Please use as 450 each 4 11/07/201304/19 [...] Miscellaneous Notes Miscellaneous - Provider, Kody - 04/10/2014 1:43 PM EDT documented in this encounter Plan of Treatment Upcoming Encounters Date Type Specialty Care Team Description 05/26/2022 Office Visit Otolaryngology Ricardo Panda PA [facility] [address] [place], [place] [address] (Wo rk) 06/02/2022 Infusion Hematology and Oncology 06/16/2022 Infusion Hematology and Oncology 06/21/2022 Office Visit Neurology Tyler Rojas MD [facility] Medical [facility] er Neurology [place], [place] [phone] (Wo rk) 06/30/2022 Infusion Hematology and Oncology 07/14/2022 Infusion Hematology and Oncology 07/28/2022 Infusion Hematology and Oncology 08/11/2022 Infusion Hematology and Oncology 11/04/2022 Office Visit Rheumatology Dante Freedman PA [facility] RHEUMATOLOGY [place], [place] [address] (Wo rk) documented as of [...] Organization Address City/State/[place] [address] CERNER [facility]ENTERI[facility] documented in this encounter Visit Diagnoses Not on filedocumented in this encounter Active and Recently Administered Medications Care Teams [employer] Floor[employer] Specialist Relationship Specialty Start Date End Date Violetta Sanford MD PCP - General 04/02/14 [address] [place] [address] documented as of this encounter
--- OUTSIDE RECORDS SUMMARY | 2022-05-24 10:57 | XMS_ITS | Encounter Summary ---
:1955 Author Organization [facility] [place] [address] Care Team Providers Name Role Phone Dc Ibanez MD Primary Care Provider Encounter Details Date Type Department Care Team Description 06/16/2013 [place] [id number] Tammy Rosales MD [facility] [place] [address] Abdominal pain, acute, right lower quadr ant; - Encounter Ev Naranjo MD [facility] [place] [address] Fever; 06/27/2013 [facility] Type II diabetes mellitus wi th renal manifestations; One Medical History of octavio l transplant; Center [facility] [place] [address] Social History Tobacco Use Types Packs/Day Years [...] Sign Reading Time Taken Comments Blood Pressure 111/49 06/16/2013 3:00 AM EST Pulse 84 06/20/2013 12:00 PM EST Temperature 37.8 ??C (100 ??F) 06/20/2013 12:00 PM EST Respiratory Rate 22 06/20/2013 12:15 PM EST Oxygen Saturation 98% 06/20/2013 12:15 PM EST Inhaled Oxygen - - Concentration Weight 114.1 kg (251 lb 8.7 06/20/2013 2:00 AM oz) EST Height 195.6 cm (6' 5) 06/16/2013 2:10 AM per pt with leg, s/p EST BKA bilateral Body Mass Index 37.99 06/16/2013 2:10 AM EST documented in this encounter Discharge Instructions Patient InstructionsEda Weber - 06/26/2013 6:18 PM EST Provider Instructions Discharge Instructions CALL YOUR PHYSICIAN IF: You have a fever greater than 101 degrees Farenheit within one month of your surgery. You have diarrhea or vomiting for >24 hours, or stop having bowel movements and passing flatus You have worsening pain, not controlled with your pain medication. You develop redness, swelling, or new drainage from your wound. Prescriptions*: -You have been prescribed narcotic pain medications (such as Percocet, Vicodin, Oxycodone or Dilaudid) to control your discomfort after surgery. DO NOT use alcohol, drive, or operate heavy or complex machinery while taking these medications. Narcotic pain medications may cause constipation. Stool softeners, such as Colace; mild laxatives, such as Milk of Magnesia, Sennakot, or Ducolax tabs; or enemas may be used if needed and are dzru-dbm-wjfcujn (OTC) medications available at most [facility]. Prunes or prune juice, taken daily, can also be helpful for constipation treatment or pre vention and are available at most supermarkets. Driving Restrictions*: - No driving if you are too sore from surgery to enter or exit your vehicle comfortably, or if you are too sore to easily check your blind spot. No driving while using prescription pain medications Activities: Discuss return to work or school with your surgeon. No heavy lifting. You may lift what is comfortable to lift with one arm. Nothing greater than 15 pounds until re-evaluated by your physician. Diet: Eat a well-balanced diet. Fresh fruits, vegetables and fiber-containing foods are recommended. Thiswill assist in wound healing. Recommendations: Take it easy for two weeks. Remember, If it hurts, don't do it. Take several slow, short walks each day for the first two weeks, and gradually increase your distance. We recommend at least 4 times a day. Wound Care: You can shower per usual routine and wash the incision area gently. Pat incision dry with a clean, dry towel. Do not submerge the wound under water (avoid spas, pools and bathtubs) until it is fully healed. Do not use creams, oils, or ointments on the wound. Keep the wound open to air if it is not draining. See follow-up appointments below for removal of sutures/masoud. Comfort: Some incision soreness can be expected. Take your pain medication as needed and prescribed. Taper use of pain medication as pain lessens. Follow-up Appointments: Please make a follow up appointment with Dr. Mccann in 2 weeks. Your surgeon may not be [employer], especially during the night or on weekends, so be ready to describe yourself and your surgery when you call. documented in this encounter Medications at Time of Discharge Medication Sig Dispensed Refills Start Date End Date aspirin 81 mg EC tablet Take 81 mg by mouth 0 daily. metroNIDAZOLE (FLAGYL) Take 1 tablet by 12 tablet 0 013 07/01/2013 500 mg tablet mouth 3 times daily for 4 days. polyethylene glycol Take 17 g by mouth 14 each 0 06/27/20 13 06/30/2013 (MIRALAX) 17 gram packet daily for 3 days. levofloxacin (LEVAQUIN) Take 1 tablet by 4 tablet 0 201207/01/2013 500 mg tablet mouth daily for 4 days. propranolol (INDERAL) 80 Take 1 tablet by 0 06/2711/22/2013 mg tablet mouth every 6 hours. tacrolimus (PROGRAF) 1 Take 2 mLs by mouth 0 10/201202/25/2014 mg/2 mL Botl 2 times daily. insulin aspart (NOVOLOG) Inject 0-20 Units 3 mL 0 10/201211/07/2013 pen injection subcutaneously 3 times daily (with meals). insulin aspart (NOVOLOG) Inject 3-12 Units 3 mL 0 10/201211/07/2013 pen injection subcutaneously every 4 hours. insulin detemir Inject 50 Units 0 06/27/201307/25 (LEVEMIR) pen injection subcutaneously 2 times daily. gabapentin (NEURONTIN) Take by mouth 2 0 11/07/2013 300 mg capsule times daily. 2 tabs in the AM and 3 tabs in the PM fluticasone (FLONASE) 50 2 sprays by Each 64 g 11 04/0201/18/2014 mcg/actuation nasal Nare route as sprayIndications: Nasal needed. sinus congestion, Type II or unspecified type diabetes mellitus with neurological manifestations, uncontrolled(250.62) Insulin [place], by Other route. 1 1 Box 11 04/02/2013 0 11/07/2013 Disposable, (BD INSULIN box = 100 insulin PEN NEEDLE UF SHORT) 31 PEN needles. X 12/07 NdleIndications: Diabetes mellitus, Type II or unspecified type diabetes mellitus with neurological manifestations, uncontrolled(250.62) MULTIVITS-MINERALS/FA/LY Take by mouth daily. 0 08/29/2019 COPENE (ONE-A-DAY MEN'S MULTIVITAMIN ORAL) glucagon, human Inject 1 mL into the 1 each 3 11/29/2012 05/07/2015 recombinant, 1 mg/mL muscle as needed. injectionIndications: Type II or unspecified type diabetes mellitus with neurological manifestations, uncontrolled(250.62) Insulin Syringe-Needle 1 Device by 200 Device 3 11/29/2012 0 11/07/2013 U-100 (BD INSULIN Misc.(Non-Drug; SYRINGE ULT-FINE II) 1 Combo Route) route 2 mL 31 x 12/07 times daily. SyrgIndications: Type II or unspecified type diabetes mellitus [...] documented as of this encounter Progress Notes Shandra Eddy RN - 06/27/2013 12:00 PM EST Patient discharged to [facility] in [place], [place]. Patient has a triple lumen PICC in the right forearm and an AV Fistula in the Left forearm. My assessment remains unchanged from my previous assessment. Patient denies chest pain and shortness of breath. RN discussed medications with patient prior to discharge, patient denies pain. Patient medicated prior to discharge with Novolog, Propanolol, and Potassium 40meq PO. Patient has all belongings. Patient received After Visit Summary. These were reviewed. All questions answered. Patient was encouraged to call with questions or concerns. Discharge packet and prescriptions given to ambulance service. Patient dischargedto [facility] via ambulance. Report called to [facility]. Char Morales MD - 06/27/2013 10:16 AM EST TRANSPLANT NEPHROLOGY follow-up PATIENT: Leroy Dailey : 1955 REASON FOR CONSULTATION: immunosuppressant management referred by Dr. Mccann PMH: ESRD secondary to presumed diabetic nephropathy s/p donor kidney transplant on 02/29/08 Diabetes Mellitus S/p bilateral BKA Asthma, nasal polyps. Essential tremor. Hypertension. GERD. Hydrocele. Subjective/24h interval history Reports that swelling of the stump has improved but still not able to use the prosthesis; was less than1 liter negative yesterday and got another dose of iv lasix this am. He says he is going to go to rehab today; TRANSPLANT HISTORY Type of donor: DD Date of transplant: 02/29/08 Underlying disease: Diabetic nephropathy Complications: none Baseline Cr/peak Cr: 1.6 MEDICATIONS: ??? furosemide 20 mg Intravenous Once ??? hydrALAZINE 50 mg Oral 4 Times Daily ??? insulin detemir 50 Units Subcutaneous BID ??? mycophenolate 500 mg Oral BID ??? insulin aspart 0-20 Units Subcutaneous TID WC ??? insulin aspart 3-12 Units Subcutaneous Q4H EVE ??? levofloxacin 500 mg Oral Q24H EVE ??? metroNIDAZOLE 500 mg Oral TID ??? heparin (porcine) 5,000 Units Subcutaneous Q8H EVE ??? polyethylene glycol (MIRALAX)oral powder 17 g Oral Daily ??? propranolol 80 mg Oral Q6H EVE ??? tacrolimus 1 mg Oral BID ??? fluticasone 2 spray Each Nare Daily ??? montelukast 10 mg Oral Nightly ??? simvastatin 10 mg Oral QPM ??? chlorhexidine 15 mL Oral Q12H EVE ??? senna-docusate 1-4 tablet Oral BID ??? miconazole Topical BID PHYSICAL EXAM: Temp: [36.8 ??C (98.2 ??F)-37.1 ??C (98.8 ??F)] Heart Rate: [58-67] Resp: [19-20] BP: (117-152)/(48-73) SpO2: [93 %-98 %] Appearance -sedated and intubated Skin - No exanthem. HEENT - Sclera white. intubated No nasal discharge. Lymph - No cervical lymphadenopathy. Chest: Lungs occassional crackles Heart - S1 and S2 clear w/o murmur, gallop, or rub. JVP not elevated. Abd - Soft. + BS. No bruit. Non tender. No organomegaly. Ext - b/l AKA Warm. No cyanosis. Sacral and abd wall edema. Neuro -intubated and sedated STUDIES: Lab Results Component Value Date WBC 6.9 06/27/2013 RBC 3.54* 06/27/2013 HGB 10.9* 06/27/2013 HCT 34.4* 06/27/2013 MCV 97.2* 06/27/2013 MCH 30.8 06/27/2013 MCHC 31.7* 06/27/2013 PLATELET 254 06/27/2013 RDWCV 13.9 06/27/2013 No results found for this basename: na, K, CL, CO2, BUN, CREATININE, GLUCOSE Lab Results Component Value Date CALCIUM 9.5 06/26/2013 Lab Results Component Value Date PHOS 3.9 06/26/2013 Component Value Date/Time SPGRAVITYUA 1.011 06/21/2013 1201 PHUADIP 6.0 06/21/2013 1201 PROTEINUADIP 30* 06/21/2013 1201 GLUCOSEU 300* 06/21/2013 1201 KETONESUA 40* 06/21/2013 1201 UROBILIUADIP Normal 06/21/2013 1201 BLOODUADIP Small* 06/21/2013 1201 NITRATEUA Negative 06/21/2013 1201 LEUKOESTERUA Negative 06/21/2013 1201 WBCUA 3 06/21/2013 1201 BILIRUBINUA Negative 06/21/2013 1201 IMPRESSION/ RECOMMENDATIONS: #1Transplant status ESRD secondary to presumed diabetic nephropathy s/p donor kidney transplant on 02/29/08; withacute allograft dysfucntion from sepsis/hypotension and now recovered #2 Immunosuppression cellcept 500 mg bid-held because of sepsis-now resumed Prograf 1 mg bid-(was given 0.5 mg on 06/18 (2100)) trough level 06/17 (1100 am) 8.1; 06/19 (0330) 5.9 06/21 3.4 -currently on prograf at 1 mg bid- 06/25 3.9 Repeat labs in 1 week and call results to Dr Garnett (prograf level to be drawn 1/2 to 1 hr beforethe am dose) F/u to tx clinic in 2-4 weeks #3 Electrolytes Stable S/p iv lasix times two; elevate leg and yaneth wrap to avoid stump swelling #4 Blood Pressure Around 140 s , currently on propranolol and hydralazine Resume cozaar at home dose #5 Infection prophylaxis None #7 septic shock Ac appendicitis s/p lap appy Antibiotics -levaquin and flagyl per ID Char Mclaughlin Pager [phone] Sylvia Remy RN - 06/27/2013 9:01 AM EST Patient Name: Leroy Dailey : 1955 Patient has been offered a swing bed at [facility] for today. Please call Dr. Sylvia Sommers at [phone] for report. Please call Nursing Report to , ask for coverstitch binder. Info to accompany patient: Copies of Medication Administration Records and IV sheets for past two weeks. Mirrt arranging ambulance pickup for noon. Ambulance will need: Medicare ambulance form completed and signed (MD or CRC) Copy of patient demographics [place] Out of Hospital DNR/DNI order, if active Patient will be discharged to: [facility] [address] [place] [id number] Plan: Associate Doctor will be available to the patient and CRC for further assistance. Sylvia Remy RN Pager [phone] Alicja Calloway OTA - 06/26/2013 4:08 PM EST Occupational Therapy Treatment Note Visit #: 2 Patient Dx: Leroy Dailey is a 58 y.o. male patient of Ev Bennett,*, admitted on06/16/2013 in transfer from [facility] for abdominal pain and fever. He underwent 06/16/13 LAPAROSCOPIC APPENDECTOMY. He had some post op issues with hypotension. PICC was placed in [facility] on 06/16/13; he is on Vanco. He has had issues with fevers and tremors; he was seen by Neuro and he has baseline tremors. He was extubated on 06/20/13, has had and altered mental status, and was transferred to [facility] on 06/22/13. Precautions/Special Considerations: consuelo AKA, fall risk, at risk for skin breakdown Interval History: anticipating d/c to rehab tomorrow. S: I've had tremors for years. I was electrocuted. O: Patient seen for therapeutic activities and demonstrated the following: ?? Pt up to cc and requesting assist to shave. Pt's mother and SO present. ?? Pt able to wash face and shave with a blade razor after setup with SBA. ?? Pt looking forward to d/c tomorrow. Pain: no c/o pain Education: Pt/family education ongoing Staff Communication: Patient status, treatment, and mobility recommendations discussed with nursing/other staff. A: Pt able to participate in self care with SBA. Pt anticipating d/c to rehab tomorrow. Occupational Therapy Goals: To be achieved by 07/02/13. 1. Pt will sit EOB with fair+ sitting balance for 5 min functional activity. 2. Pt will transfer to [facility] with one person assist and appropriate assistive device. 3. Pt will increase upper body strength to 4/5 MMT for ADLs. 4. Pt will complete seated grooming/ADL tasks with minimal assist. Plan: Pt to be seen 2-3 per week for therapy including ADL, Exercise, Functional Mobility, Recommendations and Discharge planning Eval Date: 06/25/2013 Total time spent with patient: 10 minutes Total timed interventions: 10 minutes for SCM x 1 Pager: [phone] JARRET MARTINEZ Occupational Therapy Rehabilitation Department Ryland Wilkins, PT - 06/26/2013 3:27 PM EST Physical Therapy Treatment Note Visit # 3 Patient Dx: Pt. is a 58 y.o. male admitted on 06/16/2013 by Ev Bennett in transferfrom OSH for abdominal pain and fever. He underwent 06/16/13 LAPAROSCOPIC APPENDECTOMY. He had some post op issues with hypotension. PICC was placed in [facility] on 06/16/13; he is on Vanco. He has had issues with fevers and tremors; he was seen by Neuro and he has baseline tremors. He was extubated on 06/20/13, has had and altered mental status, and was transferred to [facility] on 06/22/13. Precautions: consuelo. BKA with prosthesis, IV, PICC line Interval History: uneventful S: Feels okay, wants to try getting prostheses on O: Pt demonstrated the following ?? Assisted pt with donning both neoprene socks for prostheses ?? Pt needed most assist to don underwear--he uses bedrails to roll and PT provided assist to pull up waistband at back ?? Moves supine>sit using trapeze and HOB up to help, to L side of bed, with mod assist, using sheet as a drawpad to help him pivot to the side and adjust his position to a comfortable sitting posture ?? Tried donning foam inserts but still not able to get them on sufficiently for post to come through to be able to lock into leg socket. ?? Rolled side to side to get lift pad under him, used ceiling lift to move him to bedside chair, dependently. ?? YANETH wrapped both distal LEs and advised that he keep wrapped until tonight, and can have nursing wrap again tomorrow morning. Pain: no complaints Education: Education topics included role of PT, mobility and transfer techniques. Pt verbalized/demonstrated understanding. Staff Communication: Patient status, treatment, and mobility recommendations discussed with nursing/other staff. A: Pt tolerated PT well. Still unable to don prostheses today because of swollen distal residual limbs bilat. After trying to don them, recommended and he agreed to YANETH wrap both distal limbs to promote decreased swelling. Presents with decreased functional mobility, decreased ambulation status, and decreased ability to use prostheses d/t swelling at legs. Pt will benefit from ongoing therapeutic interventions to achieve pt's and therapy goals. Recommend he be lifted OOB to recliner chair or w/c IF W/C HAS ANTI-TIP DEVICEs IN BACK. Needs a rehabilitative setting at d/c. P: Cont per physical therapy plan of care. Total time spent with patient: 30 minutes Total timed interventions: 30 minutes functional activity training Pager: [phone] Ryland Wilkins PT Physical Therapy Rehabilitation Department Mer Malloy RN - 06/26/2013 3:04 PM EST Care Management/ CRC Pager# [phone]/ Discharge planning S: Going to [facility] (swing bed level) tomorrow would be perfect. Thanks rohith for your help. An ambulance pick-up at about 11 would be great. O: Discussion with Associate Doctor Sylvia Remy. No bed offer at [facility] or [facility] today. [facility] has offered swing bed for patient transfer tomorrow. Message to Dr. Weber about discharge plan. 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 Sylvia Herman, SHEILA - 06/26/2013 2:43 PM EST [facility] can offer a bed to pt on Tuesday but not today. [facility] unable to get an answer from the doctor as to accepting as he is unavailable. SYLVIA REMY, SHEILA Erik Mancilla MD - 06/26/2013 9:20 AM EST TRANSPLANT NEPHROLOGY follow-up PATIENT: Leroy Dailey : 1955 REASON FOR CONSULTATION: immunosuppressant management referred by Dr. Mccann PMH: ESRD secondary to presumed diabetic nephropathy s/p donor kidney transplant on 02/29/08 Diabetes Mellitus S/p bilateral BKA Asthma, nasal polyps. Essential tremor. Hypertension. GERD. Hydrocele. Subjective/24h interval history Feels well, eating better, tremors well controlled; was up last night to urinate frequently TRANSPLANT HISTORY Type of donor: DD Date of transplant: 02/29/08 Underlying disease: Diabetic nephropathy Complications: none Baseline Cr/peak Cr: 1.6 MEDICATIONS: ??? hydrALAZINE 50 mg Oral 4 Times Daily ??? [COMPLETED] furosemide 20 mg Intravenous Once ??? insulin detemir 50 Units Subcutaneous BID ??? mycophenolate 500 mg Oral BID ??? insulin aspart 0-20 Units Subcutaneous TID WC ??? insulin aspart 3-12 Units Subcutaneous Q4H EVE ??? levofloxacin 500 mg Oral Q24H EVE ??? metroNIDAZOLE 500 mg Oral TID ??? heparin (porcine) 5,000 Units Subcutaneous Q8H EVE ??? polyethylene glycol (MIRALAX)oral powder 17 g Oral Daily ??? propranolol 80 mg Oral Q6H EVE ??? tacrolimus 1 mg Oral BID ??? fluticasone 2 spray Each Nare Daily ??? montelukast 10 mg Oral Nightly ??? simvastatin 10 mg Oral QPM ??? chlorhexidine 15 mL Oral Q12H EVE ??? senna-docusate 1-4 tablet Oral BID ??? miconazole Topical BID PHYSICAL EXAM: Temp: [36.7 ??C (98.1 ??F)-37.1 ??C (98.8 ??F)] Heart Rate: [56-86] Resp: [19-20] BP: (136-161)/(53-70) SpO2: [96 %-97 %] Appearance -sedated and intubated Skin - No exanthem. HEENT - Sclera white. intubated No nasal discharge. Lymph - No cervical lymphadenopathy. Chest: Lungs occassional crackles Heart - S1 and S2 clear w/o murmur, gallop, or rub. JVP not elevated. Abd - Soft. + BS. No bruit. Non tender. No organomegaly. Ext - b/l AKA Warm. No cyanosis. Sacral and abd wall edema. Neuro -intubated and sedated STUDIES: Lab Results Component Value Date WBC 6.9 06/26/2013 RBC 3.42* 06/26/2013 HGB 10.5* 06/26/2013 HCT 32.8* 06/26/2013 MCV 95.9* 06/26/2013 MCH 30.7 06/26/2013 MCHC 32.0 06/26/2013 PLATELET 204 06/26/2013 RDWCV 13.7 06/26/2013 Lab Results Component Value Date Sodium 140 06/26/2013 Potassium 3.8 06/26/2013 Chloride 105 06/26/2013 CO2 26 06/26/2013 BUN 24* 06/26/2013 Creatinine 1.16 06/26/2013 Lab Results Component Value Date CALCIUM 9.5 06/26/2013 Lab Results Component Value Date PHOS 3.9 06/26/2013 Component Value Date/Time SPGRAVITYUA 1.011 06/21/2013 1201 PHUADIP 6.0 06/21/2013 1201 PROTEINUADIP 30* 06/21/2013 1201 GLUCOSEU 300* 06/21/2013 1201 KETONESUA 40* 06/21/2013 1201 UROBILIUADIP Normal 06/21/2013 1201 BLOODUADIP Small* 06/21/2013 1201 NITRATEUA Negative 06/21/2013 1201 LEUKOESTERUA Negative 06/21/2013 1201 WBCUA 3 06/21/2013 1201 BILIRUBINUA Negative 06/21/2013 1201 IMPRESSION/ RECOMMENDATIONS: #1Transplant status ESRD secondary to presumed diabetic nephropathy s/p donor kidney transplant on 02/29/08; withacute allograft dysfucntion from sepsis/hypotension and now recovered #2 Immunosuppression cellcept 500 mg bid-held because of sepsis-now resumed Prograf 1 mg bid-(was given 0.5 mg on 06/18 (2100)) trough level 06/17 (1100 am) 8.1; 06/19 (0330) 5.9 06/21 3.4 -currently on prograf at 1 mg bid- 06/25 3.9 #3 Electrolytes Stable #4 Blood Pressure Around 140 s , currently on propranolol and hydralazine Resume cozaar at home dose #5 Infection prophylaxis None #7 septic shock Ac appendicitis s/p lap appy Antibiotics -levaquin and flagyl per ID Char Mclaughlin Pager [phone] Transplant Nephrology Staff: Patient seen and discussed with Dr. Mclaughlin and I agree with his note and make the following additional comments: I performed my own history and exam. The conclusions and discussion were formulated together and reflect my input. Patient is feeling better and anxious for rehab in [facility]. He was treated with lasix for stump edema but is not sure yet if this helped as he has not tried his prostheses today. On exam, there is some wrinkling of the skin of both legs suggesting improvement in edema and no pitting or induration. The bp control is better as below. I/O about 2.5 L negative. Cr stable and tac level ok. Please weigh patient prior to d/c. He will need f/u in xplant clinic 2-4 weeks post d/c and should have labs checked one week post d/c. Blood pressure 125/60, pulse 60, temperature 36.9 ??C (98.4 ??F), temperature source Oral, resp. rate 20, height 195.6 cm (6' 5), weight 114.1 kg (251 lb 8.7 oz), SpO2 98.00%. Alejo Mandujano MD - 06/26/2013 9:15 AM EST Transplant Surgery Progress Note Interval Hx: - diuresed with iv lasix overnight -- 2L negative - no acute events - tolerating PO Physical Exam: BP 141/53 Pulse 56 Temp 36.9 ??C (98.4 ??F) (Oral) Resp 19 Ht 195.6 cm (6' 5) Wt 114.1 kg(251 lb 8.7 oz) BMI 29.83 kg/m2 SpO2 97% I/O last 3 completed shifts: In: 3128 [P.O.:1080; I.V.:2048] Out: 5645 [Urine:5645] I/O this shift: In: 280 [P.O.:280] Out: 500 [Urine:500] General : NAD Lungs: respirations unlabored Heart: Regular rate and rhythm Abdomen: Soft, not dt, not tender, bowel sounds active, incisions c/d/i Other: PICC Labs: Prograf level 3.9 CBC Lab Results Component Value Date WBC 6.9 06/26/2013 Hemoglobin 10.5* 06/26/2013 Hematocrit 32.8* 06/26/2013 Platelets 204 06/26/2013 Electrolytes Lab Results Component Value Date Sodium 140 06/26/2013 Potassium 3.8 06/26/2013 Chloride 105 06/26/2013 CO2 26 06/26/2013 Lab Results Component Value Date BUN 24* 06/26/2013 CREATININE 1.16 06/26/2013 BG between 90s and 200s ASSESSMENT/PLAN: Leroy Dailey is a 58 y.o. year old male, POD #10, with hx of kidney transplant, now sp LAPAROSCOPIC APPENDECTOMY . Doing well. BG well controlled on current regimen. Abx (levaquin and flagyl PO) isday 10/30 today. Medically ready for discharge when rehab bed is available. Appreciate CRC help with this. I examined the patient, reviewed all of the above findings and assessment of Dr. Weber and formulated the recommendations which accurately reflect mine. Eda Matt - 06/25/2013 4:43 PM EST Transplant Surgery Progress Note Interval Hx: - took in over 2L PO -- IV hep locked -chang removed, voiding Physical Exam: BP 136/67 Pulse 69 Temp 36.7 ??C (98.1 ??F) (Oral) Resp 20 Ht 195.6 cm (6' 5) Wt 114.1 kg(251 lb 8.7 oz) BMI 29.83 kg/m2 SpO2 96% I/O last 3 completed shifts: In: 6239 [P.O.:2890; I.V.:3349] Out: 4450 [Urine:4450] I/O this shift: In: 480 [P.O.:480] Out: 1025 [Urine:1025] General : NAD Lungs: Clear to auscultation bilaterally, respirations unlabored Heart: Regular rate and rhythm Abdomen: Soft, distended, not apparently tender, bowel sounds active, otherwise c/d/i : deferred Other: PICC Labs: Prograf level pending ASSESSMENT/PLAN: Leroy Dailey is a 58 y.o. year old male, POD #9, with hx of kidney transplant, now sp LAPAROSCOPIC APPENDECTOMY . Progressing well, now taking in good amounts of PO, though still needs to work on nutrition. Will diurese today, but expect that he will be medically ready for discharge in next 1-2 days when rehab bed is available. Mer Malloy RN - 06/25/2013 2:47 PM EST Care Management/ CRC pager# [phone]/ Transfer note and Discharge planning S: I do think that I need to get stronger before I go home with my mother. I am thinking that I would do best at [facility] (swing bed), but if there are no openings there you can try the [facility]. I do feel that I will need to go by ambulance. I am not able to use my prostheses due to the swelling in my legs. O: Met with patient, patient's mother, and patient's friend Linda this afternoon. Patient lives with his mother in [facility]. Patient has Medicare (Parts A,B and D). Patient has submitted [place] Medicaid application, but unclear when this might become effective. No Advance Directives on file here at [facility]. Patient has history of Type 2 DM. S/p bilateral below knee amputations (has prostheses). S/p donor kidney transplant 2007. Patient is S/P laparoscopic appendectomy on 06/16. Extubated on 06/20. Patient transferred to [facility] room 325 on 06/22. Per Dr. Weber, patient is medically ready for Swing bed/SNF level of care today. At this time patient is on mechanical soft, carb control level 2 diet po with Glucose control Boost supplement. Levemir 50units SQ BID. Novolog SQ TID with meals and q4hr correction. +flatus and BM x1 today. Miralax po qday. Pericolace po BID. Cellcept 500mg po BID. Prograf 1mg po BID. Chang catheter D/C today, patient voiding without difficulty. Levaquin po q24hr, Flagyl po TID. TL PICC in Right arm(placed on 06/18), but patient not receiving IV meds or fluids at this time. Inderal po q6hr. Zocor po qhs. 97% on RA. Singulair po qhs. Flonase q nare qday. PT/OT. Message to Sylvia Remy RN Associate Doctor about patient's request for referrals. A/P: I will continue in CRC role, coordinating patient's discharge planning. Ryland Wilkins, PT - 06/25/2013 1:49 PM EST Physical Therapy Treatment Note Visit # 3 Patient Dx: Pt. is a 58 y.o. male admitted on 06/16/2013 by Ev Bennett, in transferfrom OSH for abdominal pain and fever. He underwent 06/16/13 LAPAROSCOPIC APPENDECTOMY. He had some post op issues with hypotension. PICC was placed in [facility] on 06/16/13; he is on Vanco. He has had issues with fevers and tremors; he was seen by Neuro and he has baseline tremors. He was extubated on 11/27/13, has had and altered mental status, and was transferred to [facility] on 06/22/13. Precautions: consuelo. BKA with prosthesis, IV, telemetry, 330# without prosthesis, chang catheter, PICC line Interval History: uneventful S: Willing to try getting prostheses on but is concerned that his residual limbs are too swollen currently O: Pt demonstrated the following ?? Assisted pt with donning both neoprene socks for prostheses ?? Pt needed most assist to don underwear--he uses bedrails to roll and PT provided assist to pull up waistband at back ?? Moves supine>sit using trapeze and HOB up to help, to L side of bed, with mod assist, using sheet as a drawpad to help him pivot to the side and adjust his position to a comfortable sitting posture ?? Help provided in donning the foam inserts for bilat prostheses while sitting EOB ?? Moved sit<>stand three times with walker, from sitting EOB, raised bed to assist; Pt unableto get pins to click into his prostheses--legs too swollen therefor not able to get pins to protrudefrom foam inserts enough to then engage in leg sockets. ?? Standing at walker with legs not locked in, using walker, with blocking provided at knees and another person mod assist ?? Rolled side to side to get lift pad under him, used ceiling lift to move him to bedside chair, dependently. Pain: no complaints Education: Education topics included role of PT, mobility and transfer techniques. Pt verbalized/demonstrated understanding. Staff Communication: Patient status, treatment, and mobility recommendations discussed with nursing/other staff. A: Pt tolerated PT well. Unable to don prostheses today because of swollen distal residual limbs bilat. Presents with decreased functional mobility, decreased ambulation status, and decreased ability to use prostheses d/t swelling at legs. Pt will benefit from ongoing therapeutic interventions to achieve pt's and therapy goals. Recommend he be lifted OOB to recliner chair or w/c IF W/C HAS ANTI-TIP DEVICEs IN BACK. Needs a rehabilitative setting at d/c. P: Cont per physical therapy plan of care. Total time spent with patient: 45 minutes Total timed interventions: 45 minutes functional activity training Pager: [phone] Ryland Wilkins PT Physical Therapy Rehabilitation Department Shira Farnsworth RD - 06/25/2013 1:32 PM EST Nutrition Services Follow-up Note Patient Active Problem List Diagnosis Code ??? [...] 780.60 ??? Tremor/tics 781.0 ??? Hyperglycemia 790.29 Diet: M. Soft, CHO2 Appetite: poor per pt, ate 75% of breakfast tray today per flowsheets Weight: 114.1 kg ? Weight Admission: 147.2 kg ? Pert. Labs: PAB 11, others noted Medications: Prograf and Cellcept, insulin, others noted. Pt interview: I just am not that hungry Pt is off enteral feeds and on a diet. He does not understand carbohydrate counting, stating that he isn't that good with math and seems to have no motivation to begin learning how to start carbohydrate counting. We did, briefly, discuss portion sizes and how the nurses are dosing insulin to him. He was appreciative of this explanation as was his family. Ptis willing to try a few small snacks (bland) during the day to see if that helps his appetite. Will send canned pears, grahams with peanut butter and 2% milk as diet allows. He dislikes the chocolate boost and hasn't tried the other flavors. Encouraged him to try the vanilla and strawberry flavors. Recommendation/Plan: (X) Continue/add supplements: see above ( ) Additional labs requested: (X) Check weight at least twice weekly please (X) Other: encourage p.o. Intake. (X) MVI with minerals qd (X) See weekly Jackie Vargas APRN - 06/25/2013 12:17 PM EST Follow Up Diabetes Consult Patient Interview Mr. Rico is doing better today. FSBG's have trended down and stabilized to 88-120 mg/dL today. Objective Temp: [36.5 ??C (97.7 ??F)-36.9 ??C (98.4 ??F)] Heart Rate: [60-67] Resp: [18-20] BP: (154-170)/(57-75) SpO2: [96 %-99 %] Current Regimen 50 units levemir twice a day, resistant scale correction q4 hours carb count of 1 unit per 4 grams of carb Mechanical soft diet 60/60/75 Recent Glucose Levels Recent Labs Basename 06/25/13 1153 06/25/13 0808 06/25/13 0417 06/25/13 0026 06/24/13 2016 06/24/13 1753 06/24/13 1552 06/24/13 1308 06/24/13 1202 06/24/13 0746 06/24/13 0611 06/24/13 0408 POCGLU 88 120 97 117 173 195 263* 236* 193 98 89 99 ASSESSMENT Mr. Dailey is a 58 year old male with DM2, kidney transplant, appendicitis, hyperglycemia s/p appendectomy 06/16/13 and ICU stay for sepsis PLAN 1. Continue Levemir 50 units bid 2. Modify Novolog meal associated insulin from 1:4 to 1 unit per 5 grams of carb. 3. Novolog for resistant sliding scale correction q4h scheduled 20 minutes of this 35 minute visit was spent with the patient in counseling on diabetes and treatment plan, reviewing all glucose and insulin data as well as relevant laboratory results with the patient, and coordination of care on the inpatient unit (e.g. discussed new treatment plan with RN and/or primary team, TPN team, playground attendant and/or diabetes nurse educator, etc). JACKIE VARGAS APRN 06/25/2013 12:27 PM Patricia Kelsey, ESCALATOR MECHANIC - 06/25/2013 9:08 AM EST Speech-Language Pathology Progress Note Total Treatment Time: 12 min. swallow tx Total Timed Code Treatment: 0 min. S: ?? Pt denies pain at this time. ?? Pt alert, conversant, sitting up in chair talking w/ family when I arrived. I'm doing pretty good, no trouble eating that I can tell. O: Pt seen for swallow f/u. [facility], regular liquids yesterday. Goals: Pt will tolerate least restrictive diet without overt s/s aspiration or dysphagia ?? PO Trials: thin liquid via straw; mech soft solid ?? Oral Stage: good bolus control / manipulation; limited oral residue ?? Pharyngeal Stage: pt w/ no overt s/s aspiration, swallow appears prompt and complete Pt / caregivers will follow aspiration precautions, diet modifications, and safe swallowing strategies to allow adequate, safe PO intake. Pt following basic aspiration precautions, able to state, recall, and demonstrate. Goal met. A: Dx: Swallow improving, back to baseline, continue mechanical soft until pt can have lower dentures comfortably then can upgrade to regular Recommendations: Diet: mechanical soft diet, thin liquids Follow standard Aspiration Precautions (Feed only when alert; Sit upright for all PO intake; Small, single bites and sips; Remain upright for 10-15 minutes after PO intake) P: Continue Speech Pathology monitoring while hospitalized. No further active tx needed unless pt or staff note further difficulties. Pt./Family are in agreement with plan of treatment. Patricia Farah MA, [facility]-ESCALATOR MECHANIC Inpatient Rehabilitation Medicine pager:# [phone] Alejo Mandujano MD - 06/25/2013 8:52 AM EST TRANSPLANT NEPHROLOGY follow-up PATIENT: Leroy Dailey : 1955 REASON FOR CONSULTATION: immunosuppressant management referred by Dr. Ramy PMH: ESRD secondary to presumed diabetic nephropathy s/p donor kidney transplant on 02/29/08 Diabetes Mellitus S/p bilateral BKA Asthma, nasal polyps. Essential tremor. Hypertension. GERD. Hydrocele. Subjective/24h interval history Feels well, eating better, tremors well controlled; wants to go to rehab an prefers [facility] swing bed TRANSPLANT HISTORY Type of donor: DD Date of transplant: 02/29/08 Underlying disease: Diabetic nephropathy Complications: none Baseline Cr/peak Cr: 1.6 MEDICATIONS: ??? hydrALAZINE 50 mg Oral 4 Times Daily ??? insulin detemir 50 Units Subcutaneous BID ??? mycophenolate 500 mg Oral BID ??? [DISCONTINUED] hydrALAZINE 25 mg Oral 4 Times Daily ??? insulin aspart 0-20 Units Subcutaneous TID WC ??? insulin aspart 3-12 Units Subcutaneous Q4H EVE ??? levofloxacin 500 mg Oral Q24H EVE ??? metroNIDAZOLE 500 mg Oral TID ??? heparin (porcine) 5,000 Units Subcutaneous Q8H EVE ??? polyethylene glycol (MIRALAX)oral powder 17 g Oral Daily ??? propranolol 80 mg Oral Q6H EVE ??? tacrolimus 1 mg Oral BID ??? fluticasone 2 spray Each Nare Daily ??? montelukast 10 mg Oral Nightly ??? simvastatin 10 mg Oral QPM ??? chlorhexidine 15 mL Oral Q12H EVE ??? senna-docusate 1-4 tablet Oral BID ??? miconazole Topical BID PHYSICAL EXAM: Temp: [36.5 ??C (97.7 ??F)-36.8 ??C (98.2 ??F)] Heart Rate: [60-67] Resp: [18-20] BP: (154-174)/(57-77) SpO2: [96 %-99 %] Appearance -sedated and intubated Skin - No exanthem. HEENT - Sclera white. intubated No nasal discharge. Lymph - No cervical lymphadenopathy. Chest: Lungs occassional crackles Heart - S1 and S2 clear w/o murmur, gallop, or rub. JVP not elevated. Abd - Soft. + BS. No bruit. Non tender. No organomegaly. Ext - b/l AKA Warm. No cyanosis. Sacral and abd wall edema. Neuro -intubated and sedated STUDIES: Lab Results Component Value Date WBC 6.2 06/25/2013 RBC 3.30* 06/25/2013 HGB 10.2* 06/25/2013 HCT 31.8* 06/25/2013 MCV 96.4* 06/25/2013 MCH 30.9 06/25/2013 MCHC 32.1 06/25/2013 PLATELET 218 06/25/2013 RDWCV 13.7 06/25/2013 No results found for this basename: na, K, CL, CO2, BUN, CREATININE, GLUCOSE Lab Results Component Value Date CALCIUM 9.6 06/24/2013 Lab Results Component Value Date PHOS 3.6 06/17/2013 Component Value Date/Time SPGRAVITYUA 1.011 06/21/2013 1201 PHUADIP 6.0 06/21/2013 1201 PROTEINUADIP 30* 06/21/2013 1201 GLUCOSEU 300* 06/21/2013 1201 KETONESUA 40* 06/21/2013 1201 UROBILIUADIP Normal 06/21/2013 1201 BLOODUADIP Small* 06/21/2013 1201 NITRATEUA Negative 06/21/2013 1201 LEUKOESTERUA Negative 06/21/2013 1201 WBCUA 3 06/21/2013 1201 BILIRUBINUA Negative 06/21/2013 1201 IMPRESSION/ RECOMMENDATIONS: #1Transplant status ESRD secondary to presumed diabetic nephropathy s/p donor kidney transplant on 02/29/08; withacute allograft dysfucntion from sepsis/hypotension and now recovered #2 Immunosuppression cellcept 500 mg bid-held because of sepsis-now resumed Prograf 1 mg bid-(was given 0.5 mg on 06/18 (2100)) trough level 06/17 (1100 am) 8.1; 06/19 (0330) 5.9 06/21 3.4 -currently on prograf at 1 mg bid- today's level is pending #3 Electrolytes Stable #4 Blood Pressure >160s, currently on propranolol and hydralazine Resume cozaar at home dose #5 Infection prophylaxis None #7 septic shock Ac appendicitis s/p lap appy Antibiotics -levaquin and flagyl per ID Char Mclaughlin Pager [phone] I examined the patient, reviewed all of the above findings and assessment of Dr. Mclaughlin and formulated the recommendations which accurately reflect mine. Monico Clarke RN - 06/24/2013 6:14 PM EST [facility] Telemetry Note Subjective: Patient resting comfortably. Patient denies chest pain, nausea, shortness of breath. Objective: Vital signs as noted in doc flowsheets. HR 55-70 Assessment: Occasional PAC, Rare PVC Plan: Continue tele monitoring. RN will monitor patient. Lele Bone PT - 06/24/2013 5:33 PM EST Physical Therapy Treatment Note Visit #: 2 Patient Dx: Pt. is a 58 y.o. male admitted on 06/16/[address] Buckner [facility], in transferfrom OSH for abdominal pain and fever. He underwent 06/16/13 LAPAROSCOPIC APPENDECTOMY. He had some post op issues with hypotension. PICC was placed in [facility] on 06/16/13; he is on Vanco. He has had issues with fevers and tremors; he was seen by Neuro and he has baseline tremors. He was extubated on 06/20/13, has had and altered mental status, and was transferred to [facility] on 06/22/13. Precautions:Considerations: consuelo. BKA with prosthesis, IV, telemetry, 330# without prosthesis, chang catheter, PICC line Interval History: NGT removed, diet advanced; had lots of visitors today. S: Tomorrow, regarding working with PT to sit up. I do have a question, is there anywhere to get hand weights, pt educated to start with basic ROM without weights at this time. O: Patient seen for 10 mins this late afternoon/early evening on [facility] for ther-ex and pt education; Girlfriend, Linda, and Mother, Braden, were present. Pt demonstrated the following: ?? Pt in bed sleeping when PT arrived. He awoke with minimal stimulation. ?? His family is very supportive. ?? He appeared fatigued, but was agreeable to participate in some ther-ex. ?? Reviewed and performed, 5 reps, of quad sets, glut sets, adductor sets, hip abduction, and knee flexion in supine; also reviewed finger flexion and extension, wrist ROM, elbow flexion and extension,and shoulder flexion (he had decreased AROM of left shoulder compared to the right- left 160 degrees, and right 85 degrees AROM) ?? Also reviewed deep breathing, and use of the incentive spirometer; patient used IS with good technique and volume of 1000 ml. ?? Family present and setting up dinner, pt left with dinner set up with HOB up, and family helping him; RN aware of pt's status. ?? Pt and family educated to continue breathing activities, and AROM ther-ex for BUEs and BLEs. ?? BLEs appears swollen; so encouraged pt to do ther-ex to promote circulation at least 3x/day. Pain: no pain reported; but not specifically asked today. Education: Patient and family education as above. Discussed rehab, and pt and family agreeable to rehab prior to d/c to home. Staff Communication: Patient status, treatment, and mobility recommendations discussed with nursing. A: Pt fatigued this late afternoon after a busy day with many visitors. He was educated on some ther-ex to continue, and appears generally deconditioned and fatigued this evening. He will definitely benefit from continued PT to safely progress and maximize his mobility and function while he remains in-house. He will also benefit from rehab and agrees to rehab prior to d/c to home. He remains a mechanical lift transfer at this time. Expect continued steady gains in his mobility and function as he covers s/p surgery. Pt will benefit from ongoing therapeutic interventions to achieve the below therapy goals: Physical Therapy Goals: - The below Goals remain appropriate and ONGOING: To be achieved by 72 hours. 1. Pt. to demonstrate knowledge of precautions. 2. Pt. to demonstrate understanding of appropriate exercises. 3. Pt. to perform bed mobility with 2 moderate assist. 4. Pt. to perform sit to stand transfers with two moderate assist utilizing parallel bars and prosthesis.. 5. Pt. to ambulate 15 feet; with consuelo. Prosthesis and parallel bars with a chair follow. P: Cont 5-7 times per week for therapy including Bed mobility, Transfers, Exercise, Positioning, Safety , Precautions/protocol, Equipment use, Gait , Activity pacing/Energy conservation, Home program, Role of therapy, Balance and Discharge planning. Discharge Recommendations: To rehab. Will benefit from OT consult. Total time spent with patient: 10 minutes Total timed interventions: 10 [id number] Pager: [phone] LELE FARLEY, PT Physical Therapy Rehabilitation Department Hedy Arrington, ESCALATOR MECHANIC - 06/24/2013 3:23 PM EST Speech-Language Pathology Progress Note Total Treatment Time: 28 min. swallow tx Total Timed Code Treatment: 0 min. S: ?? Pt denies pain at this time. ?? Pt w/ increased alertness compared to previous ESCALATOR MECHANIC visit. Tolerating full liquid diet well per RN. O: Pt seen for swallow tx per recommendation from primary therapist Goals: Pt will tolerate least restrictive diet without overt s/s aspiration or dysphagia ?? Oral Motor: adequate for speech / swallow; pt w/ no lower teeth, concerned re: hard masticated solids ?? PO Trials: thin liquid via straw; mech soft solid; regular solid ?? Oral Stage: good bolus control / manipulation; limited oral residue ?? Pharyngeal Stage: pt w/ no overt s/s aspiration; effortful clearance of solid consistency requiring liquid wash to clear to auscultation. Pt / caregivers will follow aspiration precautions, diet modifications, and safe swallowing strategies to allow adequate, safe PO intake. Education provided re: role of ESCALATOR MECHANIC and likely progression to numerous family present throughout tx session. Communicated recommendations to RN and MD. A: Dx: Positive outward s/s of Oropharyngeal Dysphagia secondary to mildly delayed pharyngeal trigger and effortful clearance of likely pharyngeal residue. Pt appropriate to upgrade to mechanical soft diet w/thin liquids. Primary ESCALATOR MECHANIC to resume care tomorrow (Patricia Farah, #[phone]) Recommendations: Diet: mechanical soft diet, thin liquids Follow standard Aspiration Precautions (Feed only when alert; Sit upright for all PO intake; Small, single bites and sips; Remain upright for 10-15 minutes after PO intake) P: Continue Speech Pathology treatment / monitoring 3-5x/week while hospitalized. Pt./Family are in agreement with plan of treatment. Hedy Arrington MS, [facility]-ESCALATOR MECHANIC Inpatient Rehabilitation Medicine pager:# [phone] Greg Rich - 06/24/2013 1:36 PM EST Endodontist Encounter Note Patient Name: Leroy Dailey : [id number] MR#: [id number] Admit Date: 06/16/2013 12:43 AM Hospital Day 8 days Narrative:Visited to introduce and assess acceptance of Endodontist services. Assessment:Patient coping positively with stresses of illness/hospitalization at this time. Pt says that he is feeling better and pt three family members were. Pt is hoping good health and having good time with family. Intervention and Outcome: pt has family care and support. Provided spiritual and emotional support. Endodontist services accepted. Conversation to build trusting relationship. Provided pastoral presenceand listening presence. Follow-up: Follow-up visit for continued assessment and support. Time in Direct Care:10 Mins Greg Rich 06/24/2013 Donell Hernandez MD - 06/24/2013 8:10 AM EST Patient Name: Leroy Dailey Patient Age: 58 y.o. Birthdate: 1955 Admit date: 06/16/2013 Attending Physician: Ev Buckner,* Glucose management service Mr Rojas feels well today though he seems a bit dazed compared to his baseline ( I see him as an outpatient) Diabetes regimen Recommend: 70 units levemir twice a day, resistant scale correction q4 hours When able to eat, carb count of 1 unit per 4 grams of carb Tube feeds have ended Monitoring: Ref. Range 06/23/2013 22:23 06/24/2013 00:46 06/24/2013 04:08 06/24/2013 06:11 06/24/2013 07:46 POC Glucose Latest Range: 60-199 mg/dL 249 (H) 167 99 89 98 37.3 ??C (99.1 ??F) pulse 63 rr 20 bp 174/69 mmHg 1) DM2 - Mr Rojas is overtreated now that his tube feeding has stopped and the team has appropriately reduced his levemir to 50 bid. He will be increasing his po intake over the next day. Ev Salas MD - 06/24/2013 7:48 AM EST Transplant Surgery Progress Note Interval Hx: - NGT OUT in PM - Took 490 po of liquid diet, ESCALATOR MECHANIC revisit pending this AM - CMP not drawn this AM, pending now - out of bed to chair with PT yesterday Meds: ??? insulin detemir 50 Units Subcutaneous BID ??? insulin aspart 0-20 Units Subcutaneous TID WC ??? insulin aspart 3-12 Units Subcutaneous Q4H EVE ??? [DISCONTINUED] insulin detemir 70 Units Subcutaneous BID ??? mycophenolate 250 mg Oral BID ??? levofloxacin 500 mg Oral Q24H EVE ??? metroNIDAZOLE 500 mg Oral TID ??? [DISCONTINUED] insulin aspart 3-12 Units Subcutaneous Q4H EVE ??? heparin (porcine) 5,000 Units Subcutaneous Q8H EVE ??? polyethylene glycol (MIRALAX)oral powder 17 g Oral Daily ??? propranolol 80 mg Oral Q6H EVE ??? tacrolimus 1 mg Oral BID ??? fluticasone 2 spray Each Nare Daily ??? montelukast 10 mg Oral Nightly ??? simvastatin 10 mg Oral QPM ??? chlorhexidine 15 mL Oral Q12H EVE ??? senna-docusate 1-4 tablet Oral BID ??? miconazole Topical BID Physical Exam: Temp: [36.6 ??C (97.9 ??F)-37.3 ??C (99.1 ??F)] Heart Rate: [63-68] Resp: [19-20] BP: (145-178)/(57-76) SpO2: [96 %-98 %] I/O last 3 completed shifts: In: 4967 [P.O.:490; I.V.:3077; NG/GT:1400] Out: 5675 [Urine:5675] General : NAD Lungs: Clear to auscultation bilaterally, respirations unlabored Heart: Regular rate and rhythm Abdomen: Soft, distended, not apparently tender, bowel sounds active, otherwise c/d/i : Clear urine in chang Other: PICC Labs: Recent Labs Basename 06/24/13 0319 06/23/13 0608 06/22/13 0400 WBC 5.3 5.5 5.9 HGB 10.3* 10.2* 10.2* HCT 32.2* 32.1* 31.6* PLATELET 201 184 165 No results found for this basename: PT,PTT,INR in the last 168 hours Recent Labs Basename 06/23/13 0608 06/22/13 0400 06/21/13 0430 NA 142 141 138 K 3.7 3.9 4.1 CL 110* 110* 106 CO2 22 22 18* BUN 24* 24* 23* CREATININE 1.15 1.15 1.36 Recent Labs Basename 06/23/13 0608 06/22/13 0400 06/21/13 0430 06/18/13 0610 06/18/13 0215 06/17/13 2220 06/17/13 1745 CALCIUM 9.4 9.2 9.0 -- -- -- -- MAGNESIUM -- -- -- 0.62* 0.65* 0.62* -- PHOS -- -- -- -- -- -- 3.6 Recent Labs Basename 06/23/13 0608 06/18/13 0830 AST 13 12 ALT 15 12 ALKPHOS 94 69 BILITOT 0.4 0.7 BILIDIR 0.2 0.3 AMYLASE -- 8* LIPASE -- 9 Recent Labs Basename 06/22/13 0400 GLUCOSE 169 Prograf: Radiology/Studies: No new ASSESSMENT: Leroy Dailey is a 58 y.o. year old male, POD #8 sp LAPAROSCOPIC APPENDECTOMY. Progressing well with tube feeds at goal rate and more awake this morning, without further fever or signs of continuinginfection. Was able to take oral intake after NGT out yesterday, will be seen by ESCALATOR MECHANIC today. Boost shakes written for TID. Prograf level for tomorrow. Most likely ready for rehab discharge when can take full diet. Blood glucose control, appreciate endocrine recs. May need to increase levamir dose as oral intake improves. Currently at 50. Principal Problem: *?Appendicitis, sp appendectomy 06/16/13 Active Problems: Immunosuppression H/O kidney transplant Intermittent fever of unknown origin Tremor/tics Hyperglycemia PLAN: Neuro: Pain medication PRN Pulm: Wean O2, enc IS as possible, OOB Cardiac/Heme: NTD SQH DVT prophylaxis GI: NPO, repeat ESCALATOR MECHANIC eval Boost shakes FEN: Continue IVF @ 75NS - until full diet ENDO: Insulin Regimen: levamir may need to increase as higher po, currently controlled Other none Immuno ID: Prophylaxis: Treatment: Prograf recheck of level, 07/25 today recheck tuesday Cellcept 500 po BID administration today ABX: levo/flagyl PO today / days Lines: continue Chang PICC IV Dispo: Floor Will need rehab at discharge I have seen the patient and reviewed the resident's above history and I agree with the details as written. The assessment and plan were formulated in discussion with me and I agree with them as documented. Mr. Dailey is doing very well today. He tolerated PO's yesterday and is having bowel movements. He has mild abdominal tenderness without evidence of pain on exam. There is no peritonitis. He has a normal WBC and has not had fevers. He worked with PT yesterday and, as we expected, they feel that he is likely going to require rehab placement following discharge. We will make arrangements for this tomorrow when the CRC team returns. I reviewed his immunosuppression today: Prograf 07/25, trough level in the morning Cellcept increased to his home dose of 500 mg po bid today No steroids His creatinine level is as low as he has been in recent months at 1.1 today. Graft function is excellent. Stable, floor status. Rebekah Sarmiento RN - 06/23/2013 6:46 PM EST Pt got up to chair with PT today, upon sitting up in bed PT reported NG tube got caught on other equipment and was pulled out of nares about 15 cm. This RN secured NG tube with tape at 50 cm, stopped the continuous tube feeding and notified . removed NG tube and ordered pt a full liquid diet. Pt tolerated full liquid diet well, exceeding 250 ml of fluid ingested in 4 h at which time MDs concluded pt did not need a new NG tube inserted. Pt is currently resting comfortably with no SOB, clear lungsounds, and no difficulty swallowing, will continue to monitor. Ev Buckner MD - 06/23/2013 9:02 AM EST Transplant Surgery Progress Note Interval Hx: - Transferred to floor - changed to oral levo/flagyl Meds: ??? mycophenolate 250 mg Oral BID ??? levofloxacin 500 mg Oral Q24H EVE ??? metroNIDAZOLE 500 mg Oral TID ??? insulin aspart 3-12 Units Subcutaneous Q4H EVE ??? [DISCONTINUED] insulin aspart 2-8 Units Subcutaneous Q4H EVE ??? heparin (porcine) 5,000 Units Subcutaneous Q8H EVE ??? polyethylene glycol (MIRALAX)oral powder 17 g Oral Daily ??? [DISCONTINUED] vancomycin 750 mg Intravenous Q12H ??? [DISCONTINUED] insulin aspart 3-6 Units Subcutaneous TID WC ??? propranolol 80 mg Oral Q6H EVE ??? tacrolimus 1 mg Oral BID ??? [DISCONTINUED] meropenem 1 g Intravenous Q8H ??? fluticasone 2 spray Each Nare Daily ??? montelukast 10 mg Oral Nightly ??? simvastatin 10 mg Oral QPM ??? chlorhexidine 15 mL Oral Q12H EVE ??? senna-docusate 1-4 tablet Oral BID ??? miconazole Topical BID ??? [DISCONTINUED] folic acid 1 mg Oral BID ??? [DISCONTINUED] esomeprazole 40 mg Oral Daily ??? [DISCONTINUED] esomeprazole 40 mg Intravenous Daily Physical Exam: Temp: [36.4 ??C (97.5 ??F)-37.6 ??C (99.7 ??F)] Heart Rate: [65-74] Resp: [19-24] BP: (134-171)/(52-71) SpO2: [94 %-100 %] I/O last 3 completed shifts: In: 6207 [I.V.:4321; NG/GT:1886] Out: 4721 [Urine:4070; Emesis/NG output:650; Stool:1] General : NAD, more conversant this morning Lungs: Clear to auscultation bilaterally, respirations unlabored Heart: Regular rate and rhythm Abdomen: Soft, distended, not apparently tender, bowel sounds active, otherwise c/d/i : Clear urine in chang Other: PICC Labs: Recent Labs Basename 06/23/13 0608 06/22/13 0400 06/21/13 0430 WBC 5.5 5.9 6.0 HGB 10.2* 10.2* 9.7* HCT 32.1* 31.6* 30.2* PLATELET 184 165 141* No results found for this basename: PT,PTT,INR in the last 168 hours Recent Labs Basename 06/23/13 0608 06/22/13 0400 06/21/13 0430 NA 142 141 138 K 3.7 3.9 4.1 CL 110* 110* 106 CO2 22 22 18* BUN 24* 24* 23* CREATININE 1.15 1.15 1.36 Recent Labs Basename 06/23/13 0608 06/22/13 0400 06/21/13 0430 06/18/13 0610 06/18/13 0215 06/17/13 2220 06/17/13 1745 CALCIUM 9.4 9.2 9.0 -- -- -- -- MAGNESIUM -- -- -- 0.62* 0.65* 0.62* -- PHOS -- -- -- -- -- -- 3.6 Recent Labs Basename 06/23/13 0608 06/18/13 0830 AST 13 12 ALT 15 12 ALKPHOS 94 69 BILITOT 0.4 0.7 BILIDIR 0.2 0.3 AMYLASE -- 8* LIPASE -- 9 Recent Labs Basename 06/22/13 0400 GLUCOSE 169 Prograf: Radiology/Studies: No new ASSESSMENT: Leroy Dailey is a 58 y.o. year old male, POD #7 sp LAPAROSCOPIC APPENDECTOMY. Progressing well with tube feeds at goal rate and more awake this morning, without further fever or signs of continuinginfection. Needs to work with physical therapy to get out of bed to chair before we allow him to eat. Principal Problem: *?Appendicitis, sp appendectomy 06/16/13 Active Problems: Immunosuppression H/O kidney transplant Intermittent fever of unknown origin Tremor/tics Hyperglycemia PLAN: Neuro: Pain medication PRN Pulm: Wean O2, enc IS as possible, OOB Cardiac/Heme: NTD SQH DVT prophylaxis GI: NPO, repeat ESCALATOR MECHANIC eval Tube feeds @goal rate 54 FEN: Continue IVF @ 75NS Continue TF ENDO: Insulin Regimen: consult endocrinology, transition to higher SSI Other none Immuno ID: Prophylaxis: Treatment: Prograf recheck of level, 07/25 today recheck tuesday Cellcept 250 po BID administration today ABX: levo/flagyl PO today 08/01 days Lines: continue Chang PICC IV Dispo: Floor Will need rehab at discharge I have seen the patient and reviewed the resident's above history and I agree with the details as written. The assessment and plan were formulated in discussion with me and I agree with them as documented. Afebrile with a normal WBC ct and no evidence of peritonitis. Creatinine normal. Immunosuppression reviewed and adjusted: Prograf 07/25, trough level on Tuesday Cellcept 250 mg po bid restarted Stable, floor status. Await SPT eval to remove NGT and start diet. Rebekah Sarmiento RN - 06/22/2013 3:16 PM EST Patient arrived to floor from ICU alert and oriented x 3. Patient states that pain is tolerable. Educated and discussed pain management with patient. Patient verbalizes understanding of pain control. Patient denies CP/SOB. See my assessment on flowsheet. Oriented patient to room, call villarreal is within reach. Will continue to monitor. Dustin Rutledge MD - 06/22/2013 10:43 AM EST INFECTIOUS DISEASE DAILY PROGRESS NOTE Name: Leroy Dailey : 1955 Sex: male Active ID Problem List: Appendicitis Pertinent Medications: Meropenem Vanco Subjective: Extubated. Abd pain resolved. Denies N/V/D. Denies F/C. C/o feeling wheezy and SOB - chronic. Physical Exam: Temp: [36.5 ??C (97.7 ??F)-37.7 ??C (99.9 ??F)] Heart Rate: [66-82] Resp: [19-25] BP: (145-176)/(46-66) SpO2: [93 %-98 %] Gen: NAD Resp: Bilat exp wheeze and coarse crackle CV: RRR, S1/S2, no m/r/g Abd: Soft, ND, NABS, scattered intermittent tenderness Ext: + bilat LE edema, s/p bilat BKA Skin: A&O Laboratory: . Recent Labs Basename 06/22/13 0400 06/21/13 0430 06/20/13 0500 WBC 5.9 6.0 5.0 HGB 10.2* 9.7* 10.1* HCT 31.6* 30.2* 31.5* PLATELET 165 141* 139* Recent Labs Basename 06/22/13 0400 06/21/13 0430 06/20/13 1950 06/20/13 0500 NA 141 138 -- 139 K 3.9 4.1 4.3 -- CL 110* 106 -- 110* CO2 22 18* -- 17* BUN 24* 23* -- 21* CREATININE 1.15 1.36 -- 1.32 Recent Labs Basename 06/18/13 0830 06/16/13 0700 06/16/13 0145 AST 12 13 14 ALT 12 17 15 ALKPHOS 69 86 96 BILITOT 0.7 1.2 0.9 BILIDIR 0.3 0.8* 0.4* Microbiology: Blood Culture: 06/16: NGTD 06/19: NGTD Urine Culture: 06/21: No growth Radiology/Imaging: CXR 06/21: There has been interval repositioning of the right-sided PICC catheter with tip terminating in the SVC. An enteric tube is seen in the midline, though the distal portion tip are not well visualized. Heart and mediastinal contours are unchanged. There are persistent bibasilar opacities, similar to the prior study from the same day. The lateral aspect of the left hemithorax is not entirely excluded on this radiograph. Assessment: 58 yo male with h/o HTN, Asthma, GERD, DM, neuropathy s/p bilat BKA, diabetic nephropathy s/p donor renal transplant 02/29/08, recent PNA, who presented with acute onset of fevers, chills, and RLQ tenderness and firmness. He was febrile to 40.2 at the OSH. Blood cultures have been negative. Imaging of the abd/pelvis was unremarkable, but he was taken for an exploratory laparoscopy 06/16 with findings of a mildly inflamed appendix, now s/p appendectomy. Patient has slowly improved and WBC count has responded to antibiotics (initially Levo/Flagyl/Vanco, and now Buster/Vanco). He is now extubated, off pressors, and on room air. Would recommend transitioning patient back to his prior regimen of Levofloxacin and Flagyl and treating for ~8 more days for presumed appendicitis if he continues to clinically do well (2 week total course). Vancomycin can be stopped. Recommendations: ?? D/C Meropenem and Vancomycin ?? Levofloxacin 500 mg PO daily for ~8 more days ?? Flagyl 500 mg PO Q8hr for ~8 more days Patient should avoid taking any divalent cations, such as calcium, magnesium, or iron supplements (i.e. TUMS, milk of magnesia, ferrous sulfate, multivitamin) within at least 2 hours before or 2 hours after fluoroquinolone administration, as these will prevent absorption of oral fluoroquinolones. ID Consult Recommendations as above. Please call with any further questions or concerns. MULUGETA GOMES MD 06/22/2013 10:43 AM I agree with the findings and recommendations of Dr. Gomes, with whom I interviewed, examined and discussed the patient. Dustin Haywood MD Patricia Farah, ESCALATOR MECHANIC - 06/22/2013 10:24 AM EST Speech-Language Pathology Bedside Swallow Evaluation 1955 Total Treatment Time: 46 min. eval Total Timed Code Treatment: 0 min. S: ?? Pt denies pain at this time, not demonstrate any overt s/s discomfort at this time. Lethargic butresponsive to direct questions / commands. O: Order received and completed with this 58 y.o. old male admitted on 06/16/2013 Leroy Dailey is a 58 y.o. year old male, POD #6 sp LAPAROSCOPIC APPENDECTOMY. Progressing well with tube feeds close to goal rate and more awake this morning, without further fever or signs of continuing infection. May be able to transfer to lower level of care. Principal Problem: *?Appendicitis, sp appendectomy 06/16/13 Active Problems: Immunosuppression H/O kidney transplant Intermittent fever of unknown origin Tremor/tics Hyperglycemia Current Diet: NPO, NG tube feeds Cognitive-Linguistic Status: lethargic but arousable, Ox1-2 (intermittent), able to follow simple directions and respond to basic questions w/ cues to remain alert and attend, responses typically 1-3 words, no initiation of conversation, no questions or concerns Respiratory Status: pt on room air Feeding / Oral Care Status: pt is dependent on others for feeding / oral care, hand in mitt to prevent pulling out NG Seating and Positioning: pt requires some support / assistance to sit upright due to somnolence Oral Peripheral: ?? Pt reports normal sensation ?? Symmetrical presentation, no facial deviation ?? Labial, buccal, lingual, jaw, velar ROM WNL ?? Gag intact ?? Adequate laryngeal elevation to palpation ?? Voice quality WFL ?? Normal resonance Difficulties Observed: ?? Decreased overall oral strength, agility, rapid fatigue, overall slow to respond to all instructions, slow to react to stimuli ?? Speech slow, effortful but clear ?? Difficulty initiating strong volitional swallow, cough, & throat clear Bolus Presentation(s): ?? ice chips by spoon ?? thin liquid, nectar consistency thickened liquid, honey consistency thickened liquid via spoon, via cup, via straw ?? thin puree, thick puree via spoon ?? mechanical soft via spoon ?? regular small bite Oral Preparatory Phase: Difficulties Observed: ?? Decreased attention / perception of bolus / utensil; had to repeatedly cue pt to remain alert, remain focused on bolus while in mouth; started to fall asleep while chewing on small bite cracker ?? Decreased active lip closure for extraction of bolus from utensil, poor lip seal around spoon andcup, but able to suck from straw ?? Slow mastication and A-P propulsion of bolus w/ solids Pharyngeal Phase: Difficulties Observed: ?? Swallow indistinct and delayed ?? s/s of premature spillage to auscultation w/ larger sips thin liquids by straw ?? Immediate coughing after solids x1/2; w/ thin liquids by straw and cup x2/6 Esophageal Phase: No overt clinical s/s of esophageal phase dysphagia noted during this limited evaluation. A: Dx: ?? Positive outward s/s of Oropharyngeal Dysphagia secondary to generalized lethargy, slow and blunted responses to all stimuli; pt likely to be able to tolerate PO diet once less groggy, more responsive and aware Recommendations: ?? Diet: continue NG feeds for primary nutrition / hydration / meds; if pt becomes more alert, can begin to offer purees and regular liquids as tolerated, 100% supervision, pt at risk of aspiration if falling asleep w/ food in mouth, fatigues rapidly at this time ?? Follow standard Aspiration Precautions (Feed only when alert; Sit upright for all PO intake; Small, single bites and sips; Check mouth for pocketing / provide oral care after PO; Remain upright for 10-15 minutes after PO intake) Goals: ?? Pt will tolerate least restrictive diet without overt s/s aspiration or dysphagia ?? Pt / caregivers will follow aspiration precautions, diet modifications, and safe swallowing strategies to allow adequate, safe PO intake. P: ?? Speech Pathology to follow 3-5x/week while hospitalized. Will ask Tuesday ESCALATOR MECHANIC to check in on pt, see if diet can be advanced at that time if pt more consistently alert. ?? Pt in agreement with treatment plan though understanding / insight appears somewhat limited. ?? No family present at bedside at this time. Thank you for this consult with this patient. Please feel free to page me with any questions or concerns. Patricia Farah MA [facility]-ESCALATOR MECHANIC Inpatient Rehabilitation Medicine [phone] Ev Buckner MD - 06/22/2013 8:01 AM EST Transplant Surgery Progress Note Interval Hx: - some small sips and chips - vancomycin dosing changed to 750 bid - PICC line migration per CXRAY, replaced and confirmed Meds: ??? heparin (porcine) 5,000 Units Subcutaneous Q8H EVE ??? polyethylene glycol (MIRALAX)oral powder 17 g Oral Daily ??? vancomycin 750 mg Intravenous Q12H ??? insulin aspart 3-6 Units Subcutaneous TID WC ??? [DISCONTINUED] metoprolol 5 mg Intravenous Once ??? propranolol 80 mg Oral Q6H EVE ??? [DISCONTINUED] insulin aspart 3-12 Units Subcutaneous Q4H EVE ??? tacrolimus 1 mg Oral BID ??? [DISCONTINUED] vancomycin 1 g Intravenous Q12H ??? meropenem 1 g Intravenous Q8H ??? fluticasone 2 spray Each Nare Daily ??? folic acid 1 mg Oral BID ??? montelukast 10 mg Oral Nightly ??? simvastatin 10 mg Oral QPM ??? chlorhexidine 15 mL Oral Q12H EVE ??? esomeprazole 40 mg Oral Daily Or ??? esomeprazole 40 mg Intravenous Daily ??? senna-docusate 1-4 tablet Oral BID ??? miconazole Topical BID ??? [DISCONTINUED] heparin (porcine) 5,000 Units Subcutaneous Q12H EVE Physical Exam: Temp: [36.5 ??C (97.7 ??F)-37.7 ??C (99.9 ??F)] Heart Rate: [66-82] Resp: [19-24] BP: (145-176)/(46-66) SpO2: [93 %-98 %] I/O last 3 completed shifts: In: 4039 [I.V.:3557; NG/GT:482] Out: 6310 [Urine:6010; Emesis/NG output:300] General : NAD, awake but not oriented Lungs: Clear to auscultation bilaterally, respirations unlabored Heart: Regular rate and rhythm Abdomen: Soft, distended, not apparently tender, bowel sounds active, wound at umbilicus with some slight serous discharge and ?erythema, otherwise c/d/i : Clear urine in chang Other: New PICC Labs: Recent Labs Basename 06/22/13 0400 06/21/13 0430 06/20/13 0500 WBC 5.9 6.0 5.0 HGB 10.2* 9.7* 10.1* HCT 31.6* 30.2* 31.5* PLATELET 165 141* 139* Recent Labs Basename 06/16/13 0700 PT 17.2* PTT -- INR 1.4* Recent Labs Basename 06/22/13 0400 06/21/13 0430 06/20/13 1950 06/20/13 0500 NA 141 138 -- 139 K 3.9 4.1 4.3 -- CL 110* 106 -- 110* CO2 22 18* -- 17* BUN 24* 23* -- 21* CREATININE 1.15 1.36 -- 1.32 Recent Labs Basename 06/22/13 0400 06/21/13 0430 06/20/13 0500 06/18/13 0610 06/18/13 0215 06/17/13 2220 06/17/13 1745 06/16/13 0145 CALCIUM 9.2 9.0 8.9 -- -- -- -- -- MAGNESIUM -- -- -- 0.62* 0.65* 0.62* -- -- PHOS -- -- -- -- -- -- 3.6 2.8 Recent Labs Basename 06/18/13 0830 06/16/13 0700 06/16/13 0145 AST 12 13 14 ALT 12 17 15 ALKPHOS 69 86 96 BILITOT 0.7 1.2 0.9 BILIDIR 0.3 0.8* 0.4* AMYLASE 8* -- -- LIPASE 9 -- -- Recent Labs Basename 06/22/13 0400 GLUCOSE 169 Radiology/Studies: CT head 06/19 prelim read negative ASSESSMENT: Leroy Dailey is a 58 y.o. year old male, POD #6 sp LAPAROSCOPIC APPENDECTOMY. Progressing well with tube feeds close to goal rate and more awake this morning, without further fever or signs of continuing infection. May be able to transfer to lower level of care. Principal Problem: *?Appendicitis, sp appendectomy 06/16/13 Active Problems: Immunosuppression H/O kidney transplant Intermittent fever of unknown origin Tremor/tics Hyperglycemia PLAN: Neuro: Pain medication PRN Pulm: Wean O2, enc IS as possible, OOB Cardiac/Heme: NTD SQH DVT prophylaxis GI: NPO, failed ESCALATOR MECHANIC eval Tube feeds @40, goal rate 54 FEN: Continue IVF @ 75NS Continue TF Off lasix gtt today ENDO: Insulin Regimen: consult endocrinology, transition to SSI Other none Immuno ID: Prophylaxis: Treatment: Prograf recheck of level, 07/25 today (last level 4.8 06/20) Discuss Cellcept 250 po BID administration today ABX vancomycin/meropenem day 5 Vanco level recheck tomorrow Lines: continue Chang PICC IV Dispo: tx to ISCU today I have seen the patient and reviewed the resident's above history and I agree with the details as written. The assessment and plan were formulated in discussion with me and I agree with them as documented. Mr. Dailey continues to have improvement in his clinical course. He is awake and communicating today. He remains afebrile and has a normal WBC count. His abdomen is soft, NT with no evidence of peritonitis. The incision sites are healing without complications. He is on TF's and has passed flatus. Still no bowel movements. He is on a bowel regimen. His creatinine level is below his baseline. He is offof the lasix drip and we are aiming to keep his I = O (approximately). He requires aggressive PT / OT involvement. I suspect that he is headed towards a brief inpatient rehab stay following his discharge. We will await their assessment. I would like to get his NG tube out. We await final recommendations from the SPT service to remove the NG tube and start PO diet. They last saw him on Tuesday and recommended against PO intake. A bedside swallow was not performed yesterday. I reviewed and adjusted his immunosuppression today. It includes: Prograf 07/25, continue Cellcept started back on 250 mg po bid today. This is half of his normal home dose. Stable, may transfer to the floor today. Manav Smiley MD - 06/22/2013 7:49 AM EST Neurology Progress Note Patient Name: Leroy Dailey Admit Date: 06/16/2013 Attending: Dr. Smiley Patient ID: Leroy Dailey is a 58 y.o. man with history of postural tremor admitted to the ICU for sepsis asked to see for tremor activity while coming off sedation. Interval History: extubated. Awake. Alert. Restarted on propranolol. Medications: ??? [COMPLETED] metoprolol ??? heparin (porcine) 5,000 Units Subcutaneous Q8H EVE ??? polyethylene glycol (MIRALAX)oral powder 17 g Oral Daily ??? vancomycin 750 mg Intravenous Q12H ??? insulin aspart 3-6 Units Subcutaneous TID WC ??? [DISCONTINUED] metoprolol 5 mg Intravenous Once ??? propranolol 80 mg Oral Q6H EVE ??? [DISCONTINUED] insulin aspart 3-12 Units Subcutaneous Q4H EVE ??? tacrolimus 1 mg Oral BID ??? [DISCONTINUED] vancomycin 1 g Intravenous Q12H ??? meropenem 1 g Intravenous Q8H ??? fluticasone 2 spray Each Nare Daily ??? folic acid 1 mg Oral BID ??? montelukast 10 mg Oral Nightly ??? simvastatin 10 mg Oral QPM ??? chlorhexidine 15 mL Oral Q12H EVE ??? esomeprazole 40 mg Oral Daily Or ??? esomeprazole 40 mg Intravenous Daily ??? senna-docusate 1-4 tablet Oral BID ??? miconazole Topical BID ??? [DISCONTINUED] heparin (porcine) 5,000 Units Subcutaneous Q12H EVE Physical Exam: Vitals: Temp: [36.5 ??C (97.7 ??F)-37.7 ??C (99.9 ??F)] Heart Rate: [66-82] Resp: [19-24] BP: (145-176)/(46-66) SpO2: [93 %-98 %] Constitutional: Patient of apparent stated age, no acute distress Neuro: MS: Alert, oriented to person, place and month. CN: PERRL, EOMI, visual haney full, no facial asymmetry Motor: able to lift both arms off bed. Bilateral BKA Sensation: Intact to light touch Labs: Recent Results (from the past 24 hour(s)) POCT GLUCOSE Component Value Range POC Glucose 239 (*) 60 - 199 mg/dL POCT GLUCOSE Component Value Range POC Glucose 251 (*) 60 - 199 mg/dL URINALYSIS WITH MICROSCOPIC Component Value Range Glucose UA 300 (*) Negative mg/dL Protein UA 30 (*) Neg mg/dL Bilirubin UA Negative Negative mg/dL Urobilinogen UA Normal pH UA 6.0 5.0 - 8.0 Blood UA Small (*) Neg Ketones UA 40 (*) Neg mg/dL Nitrite UA Negative Leukocytes UA Negative Appearance UA Clear Clear Spec Jennings UA 1.011 1.002 - 1.030 Color UA Yellow Yellow RBC UA 3 0 - 3 /HPF WBC UA 3 0 - 3 /HPF POCT GLUCOSE Component Value Range POC Glucose 257 (*) 60 - 199 mg/dL POCT GLUCOSE Component Value Range POC Glucose 299 (*) 60 - 199 mg/dL POCT GLUCOSE Component Value Range POC Glucose 286 (*) 60 - 199 mg/dL POCT GLUCOSE Component Value Range POC Glucose 243 (*) 60 - 199 mg/dL POCT GLUCOSE Component Value Range POC Glucose 267 (*) 60 - 199 mg/dL POCT GLUCOSE Component Value Range POC Glucose 219 (*) 60 - 199 mg/dL POCT GLUCOSE Component Value Range POC Glucose 189 60 - 199 mg/dL POCT GLUCOSE Component Value Range POC Glucose 169 60 - 199 mg/dL POCT GLUCOSE Component Value Range POC Glucose 165 60 - 199 mg/dL POCT GLUCOSE Component Value Range POC Glucose 151 60 - 199 mg/dL CBC (WITH DIFF) Component Value Range WBC 5.9 4.0 - 10.0 x10(3)/mcL RBC 3.30 (*) 4.63 - 6.08 x10(6)/mcL Hemoglobin 10.2 (*) 13.7 - 17.5 gm/dL Hematocrit 31.6 (*) 40.0 - 51.0 % MCV 95.8 (*) 79.0 - 92.0 fL MCH 30.9 25.6 - 32.2 pg MCHC 32.3 32.0 - 36.5 gm/dL Platelets 165 145 - 370 x10(3)/mcL RDWSD 48.0 (*) 35.0 - 46.0 fL RDWCV 13.8 10.9 - 14.4 % MPV 9.0 9.0 - 12.0 fL BASIC METABOLIC PANEL (NON-FASTING) Component Value Range Glucose Lvl 169 60 - 199 mg/dL BUN 24 (*) 10 - 20 mg/dL Creatinine 1.15 0.80 - 1.50 mg/dL Sodium 141 135 - 145 mmol/L Potassium 3.9 3.5 - 5.0 mmol/L Chloride 110 (*) 98 - 107 mmol/L CO2 22 22 - 31 mmol/L Anion Gap 9 5 - 15 mmol/L Calcium 9.2 8.5 - 10.5 mg/dL Estimated GFR >60 >=60 DIFFERENTIAL, AUTOMATED Component Value Range Neutrophils % 67.7 34.0 - 71.0 % Neutr Abs (ANC) 3.98 1.50 - 6.30 x10(3)/mcL Lymphocytes % 19.0 19.0 - 53.0 % Lymphocytes Abs 1.1 1.0 - 3.6 x10(3)/mcL Monocytes % 8.3 4.0 - 13.0 % Monocyte Abs 0.5 0.2 - 1.0 x10(3)/mcL Eosinophils % 4.2 0.0 - 7.0 % Eosinophils Abs 0.2 0.0 - 0.5 x10(3)/mcL Basophils % 0.5 0.0 - 2.0 % Basophils Abs 0.0 0.0 - 0.2 x10(3)/mcL Immature Gran % 0.30 0.00 - 0.66 % Courtney Gran Abs 0.02 0.00 - 0.05 x10(3)/mcL ABO/RH TYPING Component Value Range ABORh Type O Pos ANTIBODY SCREEN Component Value Range Ab Screen Interp Negative Specimen OD [id number] POCT GLUCOSE Component Value Range POC Glucose 186 60 - 199 mg/dL POCT GLUCOSE Component Value Range POC Glucose 166 60 - 199 mg/dL POCT GLUCOSE Component Value Range POC Glucose 173 60 - 199 mg/dL Diagnostic Tests and Imaging: NO new. Assessment: 58 y/o man with history of DM, HTN, diabetic nephropathy s/p renal transplant admitted to the ICU service with sepsis and s/p appendectomy. We were consulted about jerking movements as his sedation waslightened. He has since been extubated and more awake. He has also been restarted on propranolol andhas visibly less tremors. Agree with current management with propranolol. Plan: -continue propranolol as currently ordered, home dose with SR when able. -hold off EEG due to improving mentation Will sign off Please call with any further questions Demar Fernandez, Resident in Neurology Neurology (Staff) Addendum I saw and evaluated the patient. I have reviewed the resident's history, physical examination findings, assessment and plan during the visit and I agree with the details as written, unless otherwise specified as below. Manav Smiley MD Mulugeta Camejo MD - 06/21/2013 11:12 AM EST STAFF PROGRESS NOTE Critical Care Medicine Author: MULUGETA CAMEJO MD Patient seen and examined on critical care rounds. Leroy Dailey is a 58 y.o. male with the following active issues:: Altered mental status 24 hour events Extubated Lasix diuresis SSESSMENT, MANAGEMENT, and DECISION MAKING: This is a 58 year old male with a past medical history significant for DM s/p bilateral BKAs and ESRD s/p kidney transplant (2007) who was admitted to the ICU for postoperative ventilatory support following a diagnostic laparoscopy and appendectomy. Neuro: improved tremor on home propranolol dose, remains somnolent CVS: stable, antihypertensives prn - home ARB per transplant Resp: good gas exchange on minimal oxygen support Renal: significant diuresis over the last 48 hours, further lasix per primary team ID: continue broad spectrum coverage: vanc/ meropenem GI: sips and chips, advance diet per surgery Endo: insulin replacement PPX: PPI, SQH Ethics: full code Dispo: appropriate for transfer out of the ICU Physical Exam Well nourished male lying in bed, no distress Somnolent, but appropriately interactive Heart regular Lungs clear Abdomen obese, soft Extremities warm Last value Range last 24 hrs Temperature Temp: 36.7 ??C (98 ??F) Temp: [36.6 ??C (97.9 ??F)-38.2 ??C (100.8 ??F)] Heart Rate Heart Rate: 78 Heart Rate: [78-95] Blood Pressure BP: 111/49 mmHg BP: -- Respiratory Rate Resp: 22 Resp: [16-27] SpO2 SpO2: 96 % SpO2: [95 %-99 %] Art BP BP (Arterial Line): 177/67 mmHg BP (Arterial Line): (139-192)/(52-155) IS PATIENT CRITICALLY ILL ? Is there a high potential of sudden, clinically significant, or life threatening deterioration? No Is there a need for direct personal assessment and management to treat/prevent multiple vital organfailure/deterioration? No If this patient is not critically ill, the reason for continued hospitalization is infection. MULUGETA CAMEJO MD 06/21/2013 Ev Buckner MD - 06/21/2013 6:07 AM EST Transplant Surgery Progress Note Interval Hx: - Extubated yesterday - Speech & Swallow recs ice chips for comfort Meds: ??? insulin aspart 3-12 Units Subcutaneous Q4H EVE ??? [COMPLETED] albuterol ??? propranolol 80 mg Oral Q6H EVE ??? [DISCONTINUED] tacrolimus 1 mg Oral BID ??? [DISCONTINUED] propranolol 160 mg Oral BID ??? [DISCONTINUED] propranolol 80 mg Oral Q6H EVE ??? [] Vancomycin Level - MAR Order Reminder NOT APPLICABLE Once ??? tacrolimus 1 mg Oral BID ??? vancomycin 1 g Intravenous Q12H ??? meropenem 1 g Intravenous Q8H ??? fluticasone 2 spray Each Nare Daily ??? folic acid 1 mg Oral BID ??? montelukast 10 mg Oral Nightly ??? simvastatin 10 mg Oral QPM ??? chlorhexidine 15 mL Oral Q12H EVE ??? esomeprazole 40 mg Oral Daily Or ??? esomeprazole 40 mg Intravenous Daily ??? heparin (porcine) 5,000 Units Subcutaneous Q12H EVE ??? senna-docusate 1-4 tablet Oral BID ??? miconazole Topical BID Physical Exam: Temp: [36.6 ??C (97.9 ??F)-38.2 ??C (100.8 ??F)] Heart Rate: [78-97] Resp: [16-33] BP: -- SpO2: [95 %-100 %] I/O last 3 completed shifts: In: 2576 [I.V.:2481; NG/GT:70; IV Piggyback:25] Out: 36699 [Urine:9850; Emesis/NG output:450] General : NAD, awake but not oriented Lungs: Clear to auscultation bilaterally, respirations unlabored Heart: Regular rate and rhythm Abdomen: Soft, distended, not apparently tender, bowel sounds active, wound at umbilicus with some slight serous discharge and ?erythema, otherwise c/d/i : Clear urine in chang Other: New PICC Labs: Recent Labs Basename 06/21/13 0430 06/20/13 0500 06/19/13 1000 WBC 6.0 5.0 5.4 HGB 9.7* 10.1* 9.4* HCT 30.2* 31.5* 30.1* PLATELET 141* 139* 132* Recent Labs Basename 06/16/13 0700 PT 17.2* PTT -- INR 1.4* Recent Labs Basename 06/21/13 0430 06/20/13 1950 06/20/13 0800 06/20/13 0500 06/19/13 0415 NA 138 -- -- 139 140 K 4.1 4.3 4.7 -- -- CL 106 -- -- 110* 116* CO2 18* -- -- 17* 15* BUN 23* -- -- 21* 23* CREATININE 1.36 -- -- 1.32 1.53* Recent Labs Basename 06/21/13 0430 06/20/13 0500 06/19/13 0415 06/18/13 0610 06/18/13 0215 06/17/13 2220 06/17/13 1745 06/16/13 0145 CALCIUM 9.0 8.9 8.3* -- -- -- -- -- MAGNESIUM -- -- -- 0.62* 0.65* 0.62* -- -- PHOS -- -- -- -- -- -- 3.6 2.8 Recent Labs Basename 06/18/13 0830 06/16/13 0700 06/16/13 0145 AST 12 13 14 ALT 12 17 15 ALKPHOS 69 86 96 BILITOT 0.7 1.2 0.9 BILIDIR 0.3 0.8* 0.4* AMYLASE 8* -- -- LIPASE 9 -- -- Recent Labs Basename 06/21/13 0430 GLUCOSE 273* Radiology/Studies: CT head 06/19 prelim read negative ASSESSMENT: Leroy Dailey is a 58 y.o. year old male, POD #5 sp LAPAROSCOPIC APPENDECTOMY. No further fever, will continue antibiotics. Will possibly need positive pressure after extubation, MELISSA at home. Renal function good. Prograf level pending, 07/25 today Principal Problem: *?Appendicitis, sp appendectomy 06/16/13 Active Problems: Immunosuppression H/O kidney transplant Intermittent fever of unknown origin Tremor/tics Hyperglycemia PLAN: Neuro: Pain medication PRN Pulm: Wean O2, enc IS as possible, OOB Cardiac/Heme: NTD SQH DVT prophylaxis GI: NPO, failed [employer] eval Keep NGT FEN: Continue IVF Continue TF Continue Lasix gtt ENDO: Insulin Regimen: continue gtt Other none Immuno ID: Prophylaxis: Treatment: Prograf recheck of level, 07/25 today ABX vancomycin/meropenem day 4 Lines: continue Chang PICC IV Dispo: tx to ISCU today I have seen the patient and reviewed the resident's above history and I agree with the details as written. The assessment and plan were formulated in discussion with me and I agree with them as documented. Mr. Dailey was extubated uneventfully yesterday afternoon. On my exam this morning, he is awake, alert. Remains mildly confused. His abdomen is soft, nontender and nondistended. He has passed flatus, but has not had a bowel movement yet. Will start Miralax. Graft function remains stable with a creatini ne level of 1.3 today in the setting of a large diuresis over the last 48 hours. I discontinued the lasix drip today and put him back on a low rate of IVF to keep him even today. Given the dramatic improvement in his level of somnolence, I discussed a bedside swallow with his nurse today. I would liketo begin nutrition and we will see if he passes this and begin Ensure shakes with PO's. Will begin PT work tomorrow. His WBC ct is normal. Had low grade temp yesterday. Remains on vancomycin + meropenem. Continue abx for now. I reviewed and adjusted his immunosuppression today which includes: Prograf 07/25, trough level yesterday was based on total 1mg dose the prior day. Continue at this dose Cellcept - held in the setting of his severe infectious illness. Will plan to begin on 250 mg po bidtomorrow if he remains stable Stable, [facility] availability today [place] - 06/20/2013 6:25 PM EST Endodontist Encounter Note Patient Name: Leroy Dailey : [id number] MR#: [id number] Admit Date: 06/16/2013 12:43 AM Hospital Day 4 days Narrative: Patient recently had intubation equipment removed and family present were attempting to assist in his regaining consciousness. This procedure writer spoke with family regarding patient's accident and hopes for recovery. Present were patients partner, mother and two close friends. Assessment: Family appears to be dealing with current crisis in a positive manner. Intervention and Outcome: Offered supportive listening. Follow-up: None requested. Time in Direct Care: 20 minutes [place] 06/20/2013 Patricia Kelsey SLP - 06/20/2013 3:27 PM EST Speech-Language Pathology Progress Note Total Treatment Time: 8 min. tx Total Timed Code Treatment: 0 min. Order received when pt planned to be extubated, however, pt reportedly too sedated this AM for extubation. Pt extubated at 14:30 as per RN, checked in at 3:26, pt remains groggy, not yet managing own secretions, requiring oral suctioning. RN advises waiting, and I concur. Can offer small ice chips as t olerated once pt more alert if his respiratory status and MS remain stable. Will plan to assess on Tuesday AM for diet tolerance / progression. Thank you. Patricia Farah MA [facility]-[employer] MECH[employer]IC Inpatient Rehabilitation Medicine pager:# [phone] Mulugeta Weiss MD - 06/20/2013 2:58 PM EST STAFF PROGRESS NOTE Critical Care Medicine Author: MULUGETA CAMEJO MD Patient seen and examined on critical care rounds. Leroy Dailey is a 58 y.o. male with the following active issues:: Postoperative ventilatory requirement Altered mental status Metabolic acidosis 24 hour events Neurology consult Lasix diuresis ASSESSMENT, MANAGEMENT, and DECISION MAKING: This is a 58 year old male with a past medical history significant for DM s/p bilateral BKAs and ESRD s/p kidney transplant (2007) who was admitted to the ICU for postoperative ventilatory support following a diagnostic laparoscopy and appendectomy. Neuro: appreciate neurology consult, will restart propranolol for baseline tremor. Patient extremelysensitive to psychotropic medications, minimize as possible CVS: stable, no active issues Resp: patient extubated following rounds without incident, continue bronchodilators Renal: improved metabolics, stable function. Tolerating lasix diuresis ID: appreciate ID consultation, continue broad spectrum coverage: vanc/ meropenem GI: NPO, advance diet per surgery Endo: insulin replacement PPX: PPI, SQH Ethics: full code Dispo: ICU Physical Exam Well nourished male lying in bed, no distress Somnolent, not consistently following commands Heart regular Lungs clear Abdomen obese, soft Extremities warm Last value Range last 24 hrs Temperature Temp: 37.8 ??C (100 ??F) Temp: [37 ??C (98.6 ??F)-37.8 ??C (100 ??F)] Heart Rate Heart Rate: 84 Heart Rate: [67-97] Blood Pressure BP: 111/49 mmHg BP: -- Respiratory Rate Resp: 22 Resp: [12-33] SpO2 SpO2: 98 % SpO2: [97 %-100 %] Art BP BP (Arterial Line): 168/62 mmHg BP (Arterial Line): (117-207)/(45-70) IS PATIENT CRITICALLY ILL ? Is there a high potential of sudden, clinically significant, or life threatening deterioration? Yes Is there a need for direct personal assessment and management to treat/prevent multiple vital organfailure/deterioration? Yes PATIENT IS CRITICALLY ILL WITH THESE DIAGNOSES BEING MANAGED BY [facility] TEAM: Acute Respiratory Failure TIME spent on the unit excluding procedures: 35 minutes MULUGETA CAMEJO MD 06/20/2013 Ev Bolanos [facility] - 06/20/2013 2:45 PM EST Extubation Note Order Verified? (yes) Pt alert & oriented? (moderately) Pt able to follow commands? (yes) Difficult Airway? (no) Extubation Time: 14:35 Stridor (no) If yes, Epi given? ( ) Cough (yes) Able to phonate (yes) Lung sounds: coarse bilat, watching secretion clearance closely. O2 device: NC 2 L/min RR: 25 HR: 99 SPO2: [address] - 06/20/2013 1:30 PM EST Nutrition Services Tube Feeding Evaluation and Recommendations Patient Active Problem List Diagnosis Code ??? [...] 780.60 ??? Tremor/tics 781.0 ??? Hyperglycemia 790.29 Past Surgical History Procedure Date ??? Created [...] BELOW-KNEE performed by HENNA GAMINO JR at [facility] OR ??? Lap, appendectomy 06/16/2013 LAPAROSCOPIC APPENDECTOMY performed by Tammy Mccann MD at [facility] OR Weight: 114.1 kg - likely Inaccurate Previous Weight: 160.3 kg on 06/17 Admit Weight: 147.20 kg Height: 195.6 cm (per pt with leg s/p bilat BKA) Height: per previous record 188 cm IBW: 74 kg +/-10% (based on bilat BKA, and based on Ht 188 cm) BMI: 41.6 (morbidly obese) I/O last 1 completed shift: In: 1052 [I.V.:982; NG/GT:70] Out: 3175 [Urine:2975; Emesis/NG output:200] NPO x 5 days today Last BM: none since admission pert meds: lasix drip, insulin drip, folic acid, tacrolimus, NBO, others noted Lab Results Component Value Date Sodium 139 06/20/2013 Potassium 4.7 06/20/2013 Chloride 110* 06/20/2013 CO2 17* 06/20/2013 BUN 21* 06/20/2013 Creatinine 1.32 06/20/2013 Glucose Lvl 143 06/20/2013 Lab Results Component Value Date CALCIUM 8.9 06/20/2013 PHOS 3.6 06/17/2013 Nutrition needs assessed at: 0721-4202 calories (based on IBW) ~80 gm protein with current renal fxn, increase as tolerated (based on IBW) Assessment/Recommendations: Pt NPO x 5 days today. Discussed with team. Plan is extubation today but mental status may preclude oral diet and request TF recommendations. Suggest Nepro as potassium has been elevated. Suggest Nepro at goal rate of 54 ml per hour to provide 1944 kcal, 87 gm protein, 783 ml water from formula, 100% of RDI's for vitamins and minerals.(This rate is calculated to compensate for unplannedtime off feedings due to potential procedures, etc.). Above TF order pended; MD will need to sign. Suggest add magnesium and phosphorus to daily labs. Aggressive bowel regimen. Suggest daily weights. Nutrition to follow. Ev Camacho RCP - 06/20/2013 9:50 AM EST AMV (yes) SBT (yes) SPO2 < 92% Initial Vent settings: PSV 10/5, 30% AB.33, 34, 96, 17.4, -8. Changes: Extubated to NC 2 L. See extubation note. Current settings: NC 2 L/min Treatments: Albuterol neb Q2 PRN - Given just after extubation for expiratory wheeze. Assessment: Mr. Dailey has been on minimal vent settings for the last few days so I believe as long as we manage his secretions sufficiently, his status will continue to improve. Plan: Extubated, follow closely initially for secretion clearance as pt is still sleepy. Ev Buckner MD - 06/20/2013 9:08 AM EST Transplant Surgery Progress Note Interval Hx: Not extubated yesterday No grade fever Prograf restarted 07/25 Subjective: Intubated and sedated Meds: ??? [DISCONTINUED] tacrolimus 1 mg Oral BID ??? Vancomycin Level - MAR Order Reminder NOT APPLICABLE Once ??? tacrolimus 1 mg Oral BID ??? vancomycin 1 g Intravenous Q12H ??? meropenem 1 g Intravenous Q8H ??? fluticasone 2 spray Each Nare Daily ??? folic acid 1 mg Oral BID ??? montelukast 10 mg Oral Nightly ??? simvastatin 10 mg Oral QPM ??? chlorhexidine 15 mL Oral Q12H EVE ??? esomeprazole 40 mg Oral Daily Or ??? esomeprazole 40 mg Intravenous Daily ??? heparin (porcine) 5,000 Units Subcutaneous Q12H EVE ??? senna-docusate 1-4 tablet Oral BID ??? miconazole Topical BID Physical Exam: Temp: [37 ??C (98.6 ??F)-37.8 ??C (100 ??F)] Heart Rate: [67-97] Resp: [12-33] BP: -- SpO2: [98 %-100 %] I/O last 3 completed shifts: In: 2652.6 [I.V.:2352.6; NG/GT:300] Out: 9725 [Urine:8925; Emesis/NG output:800] General : No movements when examined this AM Lungs: Clear to auscultation bilaterally, respirations unlabored Heart: Regular rate and rhythm Abdomen: Soft, distended, not apparently tender, bowel sounds active, wound at umbilicus with some slight serous discharge and ?erythema, otherwise c/d/i : Clear urine in chang Other: New PICC Labs: Recent Labs Basename 06/20/13 0500 06/19/13 1000 06/18/13 0610 WBC 5.0 5.4 6.2 HGB 10.1* 9.4* 9.0* HCT 31.5* 30.1* 29.3* PLATELET 139* 132* 112* Recent Labs Basename 06/16/13 0700 PT 17.2* PTT -- INR 1.4* Recent Labs Basename 06/20/13 0800 06/20/13 0500 06/19/13 2356 06/19/13 0415 06/18/13 1820 NA -- 139 -- 140 138 K 4.7 4.5 4.4 -- -- CL -- 110* -- 116* 116* CO2 -- 17* -- 15* 15* BUN -- 21* -- 23* 24* CREATININE -- 1.32 -- 1.53* 1.57* Recent Labs Basenam 06/20/13 0500 06/19/13 0415 06/18/13 1820 06/18/13 0610 06/18/13 0215 06/17/13 2220 06/17/13 1745 06/16/13 0145 CALCIUM 8.9 8.3* 8.5 -- -- -- -- -- MAGNESIUM -- -- -- 0.62* 0.65* 0.62* -- -- PHOS -- -- -- -- -- -- 3.6 2.8 Recent Labs Basenam 06/18/13 0830 06/16/13 0700 06/16/13 0145 AST 12 13 14 ALT 12 17 15 ALKPHOS 69 86 96 BILITOT 0.7 1.2 0.9 BILIDIR 0.3 0.8* 0.4* AMYLASE 8* -- -- LIPASE 9 -- -- Recent Labs Basename 06/20/13 0500 GLUCOSE 143 Radiology/Studies: CT head 06/19 prelim read negative ASSESSMENT: Leroy Dailey is a 58 y.o. year old male, POD #4 sp LAPAROSCOPIC APPENDECTOMY. No further fever, will continue antibiotics. Passed SBT this AM and may be ready for extubation this morning. Will possibly need positive pressure after extubation, MELISSA at home. Renal function good. Prograf level pending, 07/25 today Principal Problem: *?Appendicitis, sp appendectomy 06/16/13 Active Problems: Immunosuppression H/O kidney transplant Intermittent fever of unknown origin Tremor/tics Hyperglycemia PLAN: Neuro: Hold propofol Pulm: Attempt extubation. Cardiac/Heme: NTD SQH DVT prophylaxis GI: NPO Possible initiation of tube feeds later in PM if no further neurologic symptoms or concerning abdominal findings on CT AP. FEN: Continue IVF NGT to LCWS, No Diet Continue Lasix gtt ENDO: Insulin Regiment: continue gtt Other none Immuno ID: Prophylaxis: Treatment: Prograf recheck of level, 07/25 today ABX vancomycin/meropenem day 3 Lines: continue NGT continue Chang PICC IV Dispo: ICU I have seen the patient and reviewed the resident's above history and I agree with the details as written. The assessment and plan were formulated in discussion with me and I agree with them as documented. Mr. Dailey has had no further evidence of seizure like motions. Prograf was resumed last evening. Has excellent graft function that is above his baseline function in the setting of the hydration that he has received perioperatively. Was extubated this afternoon and is satting well on 2 L O2 NC. Abdomen benign, incisions without evidence of erythema. Path came back as acute appendicitis. Afebrile and normal WBC count. I reviewed and adjusted his immunosuppression today: Prograf 1mg po bid (this is his home dose) - level today is based on a hold yesterday am and 1 mg last pm, no adjustment Stable, ISCU status. Likely transfer to the floor tomorrow. Alejo Garnett MD - 06/20/2013 8:47 AM EST TRANSPLANT NEPHROLOGY follow-up PATIENT: Leroy Dailey : 1955 REASON FOR CONSULTATION: immunosuppressant management referred by Dr. Mccann PMH: ESRD secondary to presumed diabetic nephropathy s/p donor kidney transplant on 02/29/08 Diabetes Mellitus S/p bilateral BKA Asthma, nasal polyps. Essential tremor. Hypertension. GERD. Hydrocele. Subjective/24h interval history No fever, intubated TRANSPLANT HISTORY Type of donor: DD Date of transplant: 02/29/08 Underlying disease: Diabetic nephropathy Complications: none Baseline Cr/peak Cr: 1.6 MEDICATIONS: ??? [DISCONTINUED] tacrolimus 1 mg Oral BID ??? Vancomycin Level - MAR Order Reminder NOT APPLICABLE Once ??? tacrolimus 1 mg Oral BID ??? vancomycin 1 g Intravenous Q12H ??? meropenem 1 g Intravenous Q8H ??? fluticasone 2 spray Each Nare Daily ??? folic acid 1 mg Oral BID ??? montelukast 10 mg Oral Nightly ??? simvastatin 10 mg Oral QPM ??? chlorhexidine 15 mL Oral Q12H EVE ??? esomeprazole 40 mg Oral Daily Or ??? esomeprazole 40 mg Intravenous Daily ??? heparin (porcine) 5,000 Units Subcutaneous Q12H EVE ??? senna-docusate 1-4 tablet Oral BID ??? miconazole Topical BID PHYSICAL EXAM: Temp: [37 ??C (98.6 ??F)-37.8 ??C (100 ??F)] Heart Rate: [67-97] Resp: [12-33] BP: -- SpO2: [98 %-100 %] Appearance -sedated and intubated Skin - No exanthem. HEENT - Sclera white. intubated No nasal discharge. Lymph - No cervical lymphadenopathy. Chest: Lungs occassional crackles Heart - S1 and S2 clear w/o murmur, gallop, or rub. JVP not elevated. Abd - Soft. + BS. No bruit. Non tender. No organomegaly. Ext - b/l AKA Warm. No cyanosis. Sacral and abd wall edema. Neuro -intubated and sedated STUDIES: Lab Results Component Value Date WBC 5.0 06/20/2013 RBC 3.22* 06/20/2013 HGB 10.1* 06/20/2013 HCT 31.5* 06/20/2013 MCV 97.8* 06/20/2013 MCH 31.4 06/20/2013 MCHC 32.1 06/20/2013 PLATELET 139* 06/20/2013 RDWCV 14.0 06/20/2013 Lab Results Component Value Date Sodium 139 06/20/2013 Potassium 4.7 06/20/2013 Chloride 110* 06/20/2013 CO2 17* 06/20/2013 BUN 21* 06/20/2013 Creatinine 1.32 06/20/2013 Glucose Lvl 143 06/20/2013 Lab Results Component Value Date CALCIUM 8.9 06/20/2013 Lab Results Component Value Date PHOS 3.6 06/17/2013 Component Value Date/Time SPGRAVITYUA 1.011 06/18/2013 0637 PHUADIP 6.0 06/18/2013 0637 PROTEINUADIP Trace* 06/18/2013 0637 GLUCOSEU Negative 06/18/2013 0637 KETONESUA Negative 06/18/2013 0637 UROBILIUADIP Normal 06/18/2013 0637 BLOODUADIP Negative 06/18/2013 0637 NITRATEUA Negative 06/18/2013 0637 LEUKOESTERUA Negative 06/18/2013 0637 WBCUA 2 06/18/2013 0637 BILIRUBINUA Negative 06/18/2013 0637 IMPRESSION/ RECOMMENDATIONS: #1Transplant status ESRD secondary to presumed diabetic nephropathy s/p donor kidney transplant on 02/29/08; withacute allograft dysfucntion from sepsis/hypotension and now back to his baseline cr of 1.6; once MAP> 80 start diuresing, d/w ICU team. #2 Immunosuppression cellcept 500 mg bid-held because of sepsis Prograf 1 mg bid-was changed to 0.5 mg which pt received on 06/18 (2100); trough level 06/17 (1100 am) 8.1; 06/19 (0330) 5.9 -please check prograf trough at 8 AM and give the drug at 9 am ( resume prograf at 1 mg bid)- today's level is pending #3 Electrolytes Stable except for low bicarb which most likely is related to chloride rich volume resuscitation-continue diuresis #4 Blood Pressure On dopamine gtt as needed #5 Infection prophylaxis None #7 septic shock Ac appendicitis s/p lap appy Pneumonia on ct ID following and pt on vanc and meopenem Pt febrile Char Mclaughlin Pager [phone] I examined the patient, reviewed all of the above findings and assessment of Dr. Mclaughlin and formulated the recommendations which accurately reflect mine. Isac Burt RCP - 06/20/2013 5:13 AM EST SBT Inclusion ( x) Exclusion reason ( ) Initial vent settings: PSV 18, PEEP 5, FiO2 30% Initial measurements: SpO2: 100 HR: 72 RR: 19 VT: 581 MV: 10 ETCO2: 36 RASS: -2 Settings for SBT: CPAP 5, FiO2 30% 30 minute measurements: SpO2: 98 HR: 75 RR: 20 VT: 410 MV: 9 ETCO2: 40 Pass (x ) Received patient on SIMV vol. Throughout the night pt transitioned to PSJeffery Harper completed his SBT well. Noel Horn RT - 06/19/2013 3:51 PM EST Mechanical ventilation support decreased from AM settings: f=20/min (total RR 20/min, Ve 13 l FIO2 0.3 etCO2 26-47 To settings (1530) f=12/min (total RR 19/min) Ve 11.8 at this time. etCO2 36. Mulugeta Camejo MD - 06/19/2013 3:01 PM EST STAFF PROGRESS NOTE Critical Care Medicine Author: MULUGETA CAMEJO MD Patient seen and examined on critical care rounds. Leroy Dailey is a 58 y.o. male with the following active issues:: Postoperative ventilatory requirement Altered mental status Metabolic acidosis 24 hour events ?? Increased myoclonic activity ?? Altered mental status ?? STAT head CT ASSESSMENT, MANAGEMENT, and DECISION MAKING: This is a 58 year old male with a past medical history significant for DM s/p bilateral BKAs and ESRD s/p kidney transplant (2007) who was admitted to the ICU for postoperative ventilatory support following a diagnostic laparoscopy and appendectomy. Neuro: STAT head CT performed overnight for AMS and questionable seizure activity, NAICP. Will ask for neurology input - question whether myoclonic activity is simply an exacerbation of baseline tremoror whether this represents a new process. Minimize psychotropic medications - patient may simply need more time to clear sedation he received overnight. CVS: stable, meeting hemodynamic goals with minimal dopamine support Resp: patient with inadequate respiratory drive to compensate for metabolic acidosis when switched to PSV, becomes profoundly acidemic. Will continue to wean toward extubation as mental status and metabolics permit. Renal: immunosuppressive therapy and monitoring per transplant. Continued non gap metabolic acidosis, likely a combination of hyperchloremia and renal insufficiency - minimize salt load and avoid nephrotoxins. ID: appreciate ID consultation, continue broad spectrum coverage: vanc/ meropenem GI: NPO given pending extubation, will start nutritional support if not extubated soon Endo: insulin gtt PPX: PPI, SQH Ethics: full code Dispo: ICU Physical Exam Well nourished male lying in bed, no distress Intubated and sedated Heart regular Lungs clear Abdomen obese, soft Extremities warm Last value Range last 24 hrs Temperature Temp: 38.4 ??C (101.1 ??F) Temp: [37.3 ??C (99.1 ??F)-38.4 ??C (101.1 ??F)] Heart Rate Heart Rate: 94 Heart Rate: [67-117] Blood Pressure BP: 111/49 mmHg BP: -- Respiratory Rate Resp: 15 Resp: [12-24] SpO2 SpO2: 98 % SpO2: [97 %-100 %] Art BP BP (Arterial Line): 135/59 mmHg BP (Arterial Line): (118-185)/(54-70) IS PATIENT CRITICALLY ILL ? Is there a high potential of sudden, clinically significant, or life threatening deterioration? Yes Is there a need for direct personal assessment and management to treat/prevent multiple vital organfailure/deterioration? Yes PATIENT IS CRITICALLY ILL WITH THESE DIAGNOSES BEING MANAGED BY [facility]CS TEAM: Acute Respiratory Failure Stupor TIME spent on the unit excluding procedures: 35 minutes MULUGETA CAMEJO MD 06/19/2013 Dustin Haywood MD - 06/19/2013 11:59 AM EST INFECTIOUS DISEASE DAILY PROGRESS NOTE Name: Leroy Dailey : 1955 Sex: male Active ID Problem List: Appendicitis Pertinent Medications: Meropenem Vanco Subjective: Had seizure like activity that only responded to Propofol. No diarrhea, no increased trach secretions. Intubated and sedated. Physical Exam: Temp: [37.3 ??C (99.1 ??F)-38.4 ??C (101.1 ??F)] Heart Rate: [67-117] Resp: [12-20] BP: -- SpO2: [97 %-100 %] Gen: NAD Eyes: PERRL HEENT: ET tube in place Resp: bilat wheeze CV: RRR, S1/S2, no m/r/g Abd: Soft, mildly distended, NT, NABS Ext: + LE edema, s/p bilat BKA Skin: No rash Neuro: Intubated and sedated, withdraws from noxious stimuli (i.e. Opening eye lids) Laboratory: . Recent Labs Basename 06/19/13 1000 06/18/13 0610 06/17/13 0330 WBC 5.4 6.2 10.8* HGB 9.4* 9.0* 10.0* HCT 30.1* 29.3* 33.4* PLATELET 132* 112* 125* Recent Labs Basename 06/19/13 0825 06/19/13 0415 06/19/13 0330 06/18/13 1820 06/18/13 0830 NA -- 140 -- 138 140 K 5.0 4.8 4.9 -- -- CL -- 116* -- 116* 116* CO2 -- 15* -- 15* 15* BUN -- 23* -- 24* 25* CREATININE -- 1.53* -- 1.57* 1.68* Recent Labs Basename 06/18/13 0830 06/16/13 0700 06/16/13 0145 AST 12 13 14 ALT 12 17 15 ALKPHOS 69 86 96 BILITOT 0.7 1.2 0.9 BILIDIR 0.3 0.8* 0.4* Microbiology: Blood Culture: OSH 06/15: NGTD 06/16: NGTD 06/19: Pending Urine Culture: 06/18: No growth Radiology/Imaging: CT Head 06/19: No acute intracranial hemorrhage, mass, or evidence for acute ischemia in a large vascular territory. CT Chest 06/17: 1. Nonspecific, indeterminate right upper lobe consolidation, as described, extending to the right hilum. A mass lesion cannot be excluded, however, this may represent scarring, focal atelectasis, and/or pneumonia. 2. Bilobed irregularly-shaped mass like area of consolidation seen in left lower lobe. Cannot exclude neoplasm. Alternatively, this may represent rounded atelectasis and/or rounded pneumonia. 3. Mild bilateral pleural effusions. Assessment: 58 yo male with h/o HTN, Asthma, GERD, DM, neuropathy s/p bilat BKA, diabetic nephropathy s/p donor renal transplant 02/29/08, recent PNA, who presented with acute onset of fevers, chills, and RLQ tenderness and firmness. He was febrile to 40.2 at the OSH. Blood cultures have been negative. Imaging of the abd/pelvis was unremarkable, but he was taken for an exploratory laparoscopy with findings of a mildly inflamed appendix, now s/p appendectomy. Patient remains in the ICU on minimal vent support and intermittently on low-dose pressors. WBC count has responded to antibiotics, but he continues to have low- grade fevers. His CT scan of chest did show some non-specific RUL and LLL consolidationof unclear etiology. Trach aspirates have been sent x2 and gram stains have been unremarkable without cultures performed. The source of his fevers are more likely related to his presenting abdominal complaints. Would continue patient on Meropenem and Vancomycin for now and continue to follow. If he continues to have ongoing fevers, would have a low threshold to perform a repeat CT of abd/pelvis looking for abscess or other developing intra-abd infection. Recommendations: ?? Continue Meropenem and Vancomycin for now ?? Consider repeat CT abd/pelvis if patient continues to have fevers ID Consult [facility] team will continue to follow patient. MULUGETA GOMES MD 06/19/2013 11:47 AM I agree with the recommendations of Dr. Gomes after discussion with him and review of his note. I didnot examine the patient myself today. Dustin Haywood MD Alejo Garnett MD - 06/19/2013 11:27 AM EST TRANSPLANT NEPHROLOGY follow-up PATIENT: Leroy Dailey : 1955 REASON FOR CONSULTATION: immunosuppressant management referred by Dr. Mccann PMH: ESRD secondary to presumed diabetic nephropathy s/p donor kidney transplant on 02/29/08 Diabetes Mellitus S/p bilateral BKA Asthma, nasal polyps. Essential tremor. Hypertension. GERD. Hydrocele. Subjective/24h interval history Pt continues to be febrile up to 101 F, on dopamine and lasix gtt, has tremors which is worse than before per the ; prograf trough at 330 am was 5.9, prograf was held per primary team TRANSPLANT HISTORY Type of donor: DD Date of transplant: 02/29/08 Underlying disease: Diabetic nephropathy Complications: none Baseline Cr/peak Cr: 1.6 MEDICATIONS: ??? [COMPLETED] midazolam 2 mg Intravenous Once ??? [COMPLETED] midazolam 2 mg Intravenous Once ??? [COMPLETED] midazolam 2-4 mg Intravenous Once ??? Vancomycin Level - MAR Order Reminder NOT APPLICABLE Once ??? [] Vancomycin Level - MAR Order Reminder NOT APPLICABLE Once ??? vancomycin 1 g Intravenous Q12H ??? [COMPLETED] polyethylene glycol (MIRALAX)oral powder 17 g Oral Once ??? [DISCONTINUED] tacrolimus 0.5 mg Oral BID ??? meropenem 1 g Intravenous Q8H ??? [DISCONTINUED] vancomycin 1.25 g Intravenous Q24H ??? fluticasone 2 spray Each Nare Daily ??? folic acid 1 mg Oral BID ??? montelukast 10 mg Oral Nightly ??? simvastatin 10 mg Oral QPM ??? chlorhexidine 15 mL Oral Q12H EVE ??? esomeprazole 40 mg Oral Daily Or ??? esomeprazole 40 mg Intravenous Daily ??? heparin (porcine) 5,000 Units Subcutaneous Q12H EVE ??? senna-docusate 1-4 tablet Oral BID ??? miconazole Topical BID ??? [DISCONTINUED] tacrolimus 1 mg Oral BID PHYSICAL EXAM: Temp: [37.3 ??C (99.1 ??F)-38.4 ??C (101.1 ??F)] Heart Rate: [67-117] Resp: [12-20] BP: -- SpO2: [97 %-100 %] Appearance -sedated and intubated Skin - No exanthem. HEENT - Sclera white. intubated No nasal discharge. Lymph - No cervical lymphadenopathy. Chest: Lungs occassional crackles Heart - S1 and S2 clear w/o murmur, gallop, or rub. JVP not elevated. Abd - Soft. + BS. No bruit. Non tender. No organomegaly. Ext - b/l AKA Warm. No cyanosis. Sacral and abd wall edema. Neuro -intubated and sedated STUDIES: Lab Results Component Value Date WBC 5.4 06/19/2013 RBC 3.03* 06/19/2013 HGB 9.4* 06/19/2013 HCT 30.1* 06/19/2013 MCV 99.3* 06/19/2013 MCH 31.0 06/19/2013 MCHC 31.2* 06/19/2013 PLATELET 132* 06/19/2013 RDWCV 14.2 06/19/2013 Lab Results Component Value Date Sodium 140 06/19/2013 Potassium 5.0 06/19/2013 Chloride 116* 06/19/2013 CO2 15* 06/19/2013 BUN 23* 06/19/2013 Creatinine 1.53* 06/19/2013 Glucose Lvl 173 06/19/2013 Lab Results Component Value Date CALCIUM 8.3* 06/19/2013 Lab Results Component Value Date PHOS 3.6 06/17/2013 Component Value Date/Time SPGRAVITYUA 1.011 06/18/2013 0637 PHUADIP 6.0 06/18/2013 0637 PROTEINUADIP Trace* 06/18/2013 0637 GLUCOSEU Negative 06/18/2013 0637 KETONESUA Negative 06/18/2013 0637 UROBILIUADIP Normal 06/18/2013 0637 BLOODUADIP Negative 06/18/2013 0637 NITRATEUA Negative 06/18/2013 0637 LEUKOESTERUA Negative 06/18/201337 WBCUA 2 06/18/2013 06 BILIRUBINUA Negative 06/18/2013 0637 IMPRESSION/ RECOMMENDATIONS: #1Transplant status ESRD secondary to presumed diabetic nephropathy s/p donor kidney transplant on 02/29/08; withacute allograft dysfucntion from sepsis/hypotension and now back to his baseline cr of 1.6; once MAP> 80 start diuresing, d/w ICU team. #2 Immunosuppression cellcept 500 mg bid-held because of sepsis Prograf 1 mg bid-was changed to 0.5 mg which pt received on 06/18 (2100); trough level 06/17 (1100 am) 8.1; 06/19 (0330) 5.9 -please check prograf trough at 8 AM and give the drug at 9 am ( resume prograf at 1 mg bid) #3 Electrolytes Stable except for low bicarb which most likely is related to chloride rich volume resuscitation-continue diuresis #4 Blood Pressure On dopamine gtt as needed #5 Infection prophylaxis None #7 septic shock Ac appendicitis s/p lap appy Pneumonia on ct ID following and pt on vanc and meopenem Pt febrile Char Mclaughlin Pager [phone] I examined the patient, reviewed all of the above findings and assessment of Dr. Mclaughlin and formulated the recommendations which accurately reflect mine. Ev Buckner MD - 06/19/2013 9:10 AM EST Transplant Surgery Progress Note Interval Hx: Not extubated yesterday This AM, spasmodic movements concerning for seizure, CT head negative Continued low grade fever Prograf level 8.6 Vancomycin level 15.4 Nephrology consult - tremors and tics known to service from outpatient visits, may be baseline Subjective: Intubated and sedated Meds: ??? [COMPLETED] midazolam 2 mg Intravenous Once ??? [COMPLETED] midazolam 2 mg Intravenous Once ??? [COMPLETED] midazolam 2-4 mg Intravenous Once ??? Vancomycin Level - [facility] Order Reminder NOT APPLICABLE Once ??? [] Vancomycin Level - MAR Order Reminder NOT APPLICABLE Once ??? vancomycin 1 g Intravenous Q12H ??? [COMPLETED] polyethylene glycol (MIRALAX)oral powder 17 g Oral Once ??? [DISCONTINUED] tacrolimus 0.5 mg Oral BID ??? meropenem 1 g Intravenous Q8H ??? [DISCONTINUED] vancomycin 1.25 g Intravenous Q24H ??? fluticasone 2 spray Each Nare Daily ??? folic acid 1 mg Oral BID ??? montelukast 10 mg Oral Nightly ??? simvastatin 10 mg Oral QPM ??? chlorhexidine 15 mL Oral Q12H EVE ??? esomeprazole 40 mg Oral Daily Or ??? esomeprazole 40 mg Intravenous Daily ??? heparin (porcine) 5,000 Units Subcutaneous Q12H EVE ??? senna-docusate 1-4 tablet Oral BID ??? miconazole Topical BID ??? [DISCONTINUED] tacrolimus 1 mg Oral BID Physical Exam: Temp: [37.3 ??C (99.1 ??F)-38.4 ??C (101.1 ??F)] Heart Rate: [67-117] Resp: [12-20] BP: -- SpO2: [97 %-100 %] I/O last 3 completed shifts: In: 5824.6 [I.V.:5514.6; NG/GT:310] Out: 6330 [Urine:5630; Emesis/NG output:700] General : No movements when examined this AM Lungs: Clear to auscultation bilaterally, respirations unlabored Heart: Regular rate and rhythm Abdomen: Soft, distended, not apparently tender, bowel sounds active, wound at umbilicus with some slight serous discharge and ?erythema, otherwise c/d/i : Clear urine in chang Other: New PICC Labs: Recent Labs Basename 06/18/13 0610 06/17/13 0330 06/16/13 0700 WBC 6.2 10.8* 21.0* HGB 9.0* 10.0* 11.4* HCT 29.3* 33.4* 36.6* PLATELET 112* 125* 158 Recent Labs Basename 06/16/13 0700 PT 17.2* PTT -- INR 1.4* Recent Labs Basename 06/19/13 0415 06/19/13 0330 06/18/13 2200 06/18/13 1820 06/18/13 0830 NA 140 -- -- 138 140 K 4.8 4.9 4.7 -- -- CL 116* -- -- 116* 116* CO2 15* -- -- 15* 15* BUN 23* -- -- 24* 25* CREATININE 1.53* -- -- 1.57* 1.68* Recent Labs Basename 06/19/13 0415 06/18/13 1820 06/18/13 0830 06/18/13 0610 06/18/13 0215 06/17/13 2220 06/17/13 1745 06/16/13 0145 CALCIUM 8.3* 8.5 8.6 -- -- -- -- -- MAGNESIUM -- -- -- 0.62* 0.65* 0.62* -- -- PHOS -- -- -- -- -- -- 3.6 2.8 Recent Labs Basename 06/18/13 0830 06/16/13 0700 06/16/13 0145 AST 12 13 14 ALT 12 17 15 ALKPHOS 69 86 96 BILITOT 0.7 1.2 0.9 BILIDIR 0.3 0.8* 0.4* AMYLASE 8* -- -- LIPASE 9 -- -- Recent Labs Basename 06/19/13 0415 GLUCOSE 173 Radiology/Studies: CT head 06/19 prelim read negative ASSESSMENT: Leroy Dailey is a 58 y.o. year old male, POD #3 sp LAPAROSCOPIC APPENDECTOMY. Continued low grade fever of unknown origin with known RUL consolidation on most recent chest CT, with negative gram stain on tracheal aspirate sputum. May benefit from repeat blood culture (sent) and bronchoscopy to sample for potential bacteremia or pneumonia. Also, CMV and EBV PRC sent given immunosuppression. Less concerned regarding the tremors/spasmodic movements seen this morning now with negative head CT and nephrology comment yesterday. Would also like to check abdomen with CT given continued fever. Still pending pathology on appendix. Principal Problem: *?Appendicitis, sp appendectomy 06/16/13 Active Problems: Immunosuppression H/O kidney transplant Intermittent fever of unknown origin Tremor/tics Hyperglycemia PLAN: Neuro: Continue fentanyl/propofol Discuss with family alcohol use Pulm: SIMV and recheck ABG this morning given earlier acidosis. Cardiac/Heme: NTD SQH DVT prophylaxis GI: NPO Possible initiation of tube feeds later in PM if no further neurologic symptoms or concerning abdominal findings on CT AP. FEN: Continue IVF NGT to LCWS, No Diet ENDO: Insulin Regiment: continue gtt Other none Immuno ID: Prophylaxis: Treatment: Prograf discontinued this morning until recheck of level ABX vancomycin/meropenem day 2 Lines: continue NGT continue Chang PICC IV Dispo: ICU I have seen the patient and reviewed the resident's above history and I agree with the details as written. The assessment and plan were formulated in discussion with me and I agree with them as documented. Resume Prograf at 07/25 after hold this am. Repeat tacrolimus trough level on Tuesday Isac Burt RCP - 06/19/2013 6:28 AM EST 06/18/13201406/18/13 2334 06/19/13 0353 Ventilator Settings Ventilator Mode SIMV Vol + PS PS SIMV Vol + PS (AB.) Resp. Rate Set 20 -- 20 Tidal Volume Set 650 -- 650 Set FiO2 30 % 30 % 30 % Set PEEP (cm H2O) 5 5 5 PS Above PEEP (cm H2O) 15 15 15 Ventilator Measurements Resp 20 12 20 SpO2 98 % 97 % 100 % ETCO2 (mmHg) 27 mmHg 37 mmHg 36 mmHg Received patient on SIMV. At 2330 patient placed on PS due to spontaneous effort. At 0400 patent noted to have a trend of increasing etCO2 to 50. ABG 7.16. Patient placed back on SIMV mode. Noel Horn RT - 06/18/2013 6:04 PM EST 06/18/13 1622 Ventilator Settings Ventilator Mode SIMV Vol + PS Resp. Rate Set 20 Tidal Volume Set 650 Set FiO2 30 % Set PEEP (cm H2O) 5 PS Above PEEP (cm H2O) 15 Flow Type Decelerating Percent Deceleration 50 Flow Rate (L/min) 62.4 Inspiratory Time 0.85 Sec(s) Ventilator Measurements Resp 20 Tidal Volume Measured Insp. 650 mL Tidal Volume Measured Exp. 651 Peak Inspiratory Pressure 46 Minute Ventilation Total Exhaled (L/min) 11.9 SpO2 98 % ETCO2 (mmHg) 33 mmHg No change ventilator settings during shift. Mulugeta Camejo MD - 06/18/2013 5:57 PM EST STAFF PROGRESS NOTE Critical Care Medicine Author: MULUGETA CAMEJO MD Patient seen and examined on critical care rounds. Leroy Dailey is a 58 y.o. male with the following active issues:: ?? Postoperative ventilatory requirement ?? ANSELMO ASSESSMENT, MANAGEMENT, and DECISION MAKING: This is a 58 year old male with a past medical history significant for DM s/p bilateral BKAs and ESRD s/p kidney transplant (2007) who was admitted to the ICU for postoperative ventilatory support following a diagnostic laparoscopy and appendectomy. Neuro: lighten sedation CVS: on dopamine to meet MAP goals per transplant, appears well resuscitated. PICC placed Resp: on minimal ventilatory settings, wean toward extubation Renal: appreciate transplant consultation regarding immunosuppressive therapy and monitoring, function improving with good UOP. Mild non gap metabolic acidosis. ID: appreciate ID consultation, continue broad spectrum coverage and follow up culture data GI: NPO Endo: insulin gtt PPX: PPI, SQH Ethics: full code Dispo: ICU Physical Exam Well nourished male lying in bed, no distress Intubated and sedated Heart regular Lungs clear Abdomen obese, soft Extremities warm Last value Range last 24 hrs Temperature Temp: 37.7 ??C (99.9 ??F) Temp: [37.3 ??C (99.1 ??F)-38.3 ??C (100.9 ??F)] Heart Rate Heart Rate: 67 Heart Rate: [67-80] Blood Pressure BP: 111/49 mmHg BP: -- Respiratory Rate Resp: 20 Resp: [16-20] SpO2 SpO2: 98 % SpO2: [97 %-99 %] Art BP BP (Arterial Line): 141/62 mmHg BP (Arterial Line): (99-141)/(48-62) IS PATIENT CRITICALLY ILL ? Is there a high potential of sudden, clinically significant, or life threatening deterioration? Yes Is there a need for direct personal assessment and management to treat/prevent multiple vital organfailure/deterioration? Yes PATIENT IS CRITICALLY ILL WITH THESE DIAGNOSES BEING MANAGED BY CCS TEAM: Acute Respiratory Failure Hypotension Req Pressors Sepsis TIME spent on the unit excluding procedures: 40 minutes MULUGETA CAMEJO MD 06/18/2013 Yohana Ballard RN - 06/18/2013 10:13 AM EST [facility] ([facility]) Office of Care Management Yohana Ballard RN, [facility] Phone [phone] Pager # [phone] INITIAL ASSESSMENT: Reviewed record; interviewed pt's mother, who goes by Donnell, and girlfriend Linda; services accepted. REASON for HOSPITALIZATION: 58 yr old man with hx of renal transplant in 2007, transferred from OSH after presenting with chills, fever, abd pain, elevated WBC, now s/p laparoscopic appendectomy 06/16. Pt has PMH significant for bilateral BKA's; essential tremor; hearing loss; DM with neuropathy. CURRENT STATUS: Pt intubated, not awake at present. Versed, fentanyl, RHI gtts. NGT. Chang. Vancomycin, meropenum. BASELINE FUNCTIONAL STATUS/SOCIAL/FAMILY SUPPORTS: Introduced self and role to pt's mother Donnell, and girlfriend Linda. Pt lives with his mother in a single level home, ramps to enter. Pt has prostheses for bilateral LE's, and is able to ambulate with a cane for limited distances (around the house, out to the car). He also has an electric w/c, and a gator for getting around outside. Pt is independent with self care. No home services. Mother states that pt had inpatient rehab following last BKA at [facility] swing bed. Mother states he didn't like it, but will appreciate that he must be independent enough to safely returnhome, as he is a large man, and mother is a small woman, with limited ability to physically help him. INSURANCE COVERAGE/FINANCIAL ISSUES: Medicare AB and prescription coverage. Pt's mother states that pt has submitted an application to [place] Medicaid, but has not yet heard back. ADVANCE DIRECTIVES: None scanned. Mother and girlfriend state pt does not have these. REHAB TEAM CONSULTS: Will need PT when clinically appropriate for mobilization, assessment of discharge planning needs. HISTORIOGRAPHY PROFESSOR REFERRAL: When pt is awake and alert, will ask HISTORIOGRAPHY PROFESSOR to check in with pt regarding willingness to complete AD's; also whether he needs assistance with Medicaid process. POTENTIAL DISCHARGE NEEDS: To be determined after extubation, and after PT evaluation. PLAN: Yohana Ballard RN,[facility]/Lynsey Arias RN,[facility], will continue to follow. Ev Buckner MD - 06/18/2013 7:53 AM EST Surgery Progress Note Patient ID: 58 M with prior renal transplant, taken lap appy on 06/16 PMH/SH: Renal transplant R BKA DM Interval History: - sbt held this morning due to sedation - Dopa req down to 2 - ID recommendations to change to vanco/meropenem enacted Vitals: Last value Range last 24 hrs Temperature Temp: 37.4 ??C (99.3 ??F) Temp: [37.1 ??C (98.8 ??F)-38.3 ??C (100.9 ??F)] Heart Rate Heart Rate: 72 Heart Rate: [66-84] Blood Pressure BP: 111/49 mmHg BP: -- Respiratory Rate Resp: 20 Resp: [12-22] SpO2 SpO2: 99 % SpO2: [98 %-100 %] I/O last 3 completed shifts: In: 9505 [I.V.:9315; NG/GT:190] Out: 3350 [Urine:3250; Emesis/NG output:100] Physical Exam General: intubated, sedated, minimally responsive CV: RRR Pulm: vented Abd: obese, soft, incisions benign : chang with clear yellow Extremities: R BKA Labs: Reviewed in EDH; WBC down to 6.2, K slightly elevated, Cr downtrending, BGs remain high, bicarb low Blood on admission and 06/17 sputum negative Radiography: CT scan 06/17 chest: Nonspecific, indeterminate right upper lobe consolidation, as described, extending to the right hilum. A mass lesion cannot be excluded, however, this may represent scarring, focal atelectasis, and/or pneumonia. Bilobed irregularly-shaped mass like area of consolidation seen in left lower lobe. Cannotexclude neoplasm. Alternatively, this may represent rounded atelectasis and/or rounded pneumonia. Mild bilateral pleural effusions Assessment/Plan: 58 M with prior renal transplant, taken lap appy on 06/16; slowly improving. Continued concern for infection, will culture sputum before possible extubation and urine. Neuro: wean sedation per CCS, would opt to wake if possible CV: wean dopa as possible, goal SBP>110 Pulm: vent per CCS, O2 req down, with sedation trial PSV GI: NPO, OGT, Nexium,consider trickle TF if no extubation FEN: continue IVF, start to back down on rates, consider correction of bicarb Endo: continue RHI gtt Heme: SQH ID: continue vanco/meropenem; presumed source from appy Dispo: ICU I have seen the patient and reviewed the resident's above history and I agree with the details as written. The assessment and plan were formulated in discussion with me and I agree with them as documented. Neuro: awake, alert this morning. Sedation being weaned to attempt SBT this morning Pulmonary: 30% FiO2, remains on SIMV rate. ABG 7.39/27/104 this morning. SBT as he emerges from sedation. Cardiology: BP stable without the need for pressors. Blood cultures remain negative from admission, no evidence of sepsis. Renal: Cr is 1.5 this morning. His baseline over the last year has run in the 1.6 - 2.0 range so it appears that he has returned to the level where he normally lives. Continue to closely follow. 13 L positive, UO was 2.2 L yesterday. GI: Will send a repeat set of LFT's and amylase/lipase today. No evidence of peritontitis today. ID: WBC count normalized. Appendix path pending. Appreciate Transplant ID involvement. Will continuevancomycin and meropenem for now. Vancomycin trough check with changing renal function. Repeat delcid cultures every 24 hours for fevers 38.0C or above. Will send UA/urine culture today and repeat endotracheal aspiration for GS/Cx before extubation given the fever overnight and pulmonary consolidation processes on the admission CT scan. Cultures were not performed on the initial GS/Cx from sputum. Endocrine: continue insulin drip today Immunosuppression: I reviewed and adjusted his immunosuppression today: -- Prograf : 1mg po bid, trough level today -- Cellcept : on hold for infectious process, continue to hold today (his home dose is 500 mg po bid) Isac Burt RCP - 06/18/2013 6:24 AM EST 06/18/13 0320 Ventilator Settings Ventilator Mode SIMV Vol + PS Resp. Rate Set 20 Tidal Volume Set 650 Set FiO2 30 % Set PEEP (cm H2O) 5 Ventilator Measurements Resp 20 SpO2 98 % ETCO2 (mmHg) 27 mmHg SBT hold due to sedation. Received patient on above settings. No changes made. Gentry Long MD - 06/17/2013 2:44 PM EST STAFF PROGRESS NOTE Critical Care Medicine Author: GENTRY LONG MD Patient seen and examined on critical care rounds. Leroy Dailey is a 58 y.o. male with the following active issues:: There are no hospital problems to display for this patient. ASSESSMENT, MANAGEMENT, and DECISION MAKING: Hemodynamics: ongoing volume and pressor requirement for BP support Pulmonary: moderate A-a gradient persists; will obtain chest CT in light of concern for partially treated pneumonia Renal: acceptable urine output and stable Cr ID: infectious disease input appreciated Physical Exam Intubated, eyes closed, does not open Lungs: few rhonchi Heart: RRR Abdomen: soft Last value Range last 24 hrs Temperature Temp: 37.5 ??C (99.5 ??F) Temp: [36.6 ??C (97.9 ??F)-38 ??C (100.4 ??F)] Heart Rate Heart Rate: 66 Heart Rate: [57-84] Blood Pressure BP: 111/49 mmHg BP: -- Respiratory Rate Resp: 12 Resp: [0-16] SpO2 SpO2: 98 % SpO2: [98 %-100 %] Art BP BP (Arterial Line): 125/60 mmHg BP (Arterial Line): (86-130)/(40-61) IS PATIENT CRITICALLY ILL ? Is there a high potential of sudden, clinically significant, or life threatening deterioration? Yes Is there a need for direct personal assessment and management to treat/prevent multiple vital organfailure/deterioration? Yes PATIENT IS CRITICALLY ILL WITH THESE DIAGNOSES BEING MANAGED BY CCS TEAM: Hypoxemic Resp Failure Hypotension Req Fluids Hypotension Req Pressors TIME spent on the unit excluding procedures: 30 minutes GENTRY LONG MD 06/17/2013 Tammy Mccann MD - 06/17/2013 12:37 PM EST Surgery Progress Note Patient ID: 58 M with prior renal transplant, taken lap appy on 06/16 PMH/SH: Renal transplant R BKA DM Interval History: - BPs better with fluid resuscitation - slowly weaning vent - Dopa req down, but still present; suspect Propofol effect - UO adequate, labs improving Vitals: Last value Range last 24 hrs Temperature Temp: 38 ??C (100.4 ??F) Temp: [36.6 ??C (97.9 ??F)-38 ??C (100.4 ??F)] Heart Rate Heart Rate: 79 Heart Rate: [57-79] Blood Pressure BP: 111/49 mmHg BP: -- Respiratory Rate Resp: 12 Resp: [0-16] SpO2 SpO2: 98 % SpO2: [98 %-100 %] I/O last 3 completed shifts: In: 10990 [I.V.:60078; NG/GT:120] Out: 2955 [Urine:2855; Blood:100] I/O this shift: In: 30 [NG/GT:30] Out: 150 [Urine:150] Physical Exam General: intubated, sedated, minimally responsive CV: RRR Pulm: vented Abd: obese, soft, incisions benign : chang with clear yellow Extremities: R BKA Labs: Reviewed in EDH; WBC down to 10/8, K slightly elevated, Cr downtrending, BGs remain high, bicarb low Radiography: None new Assessment/Plan: 58 M with prior renal transplant, taken lap appy on 06/16; slowly improving Neuro: wean sedation per CCS, would opt to wake if possible CV: wean dopa as possible, goal SBP>110 Pulm: vent per CCS, O2 req down, with sedation trial PSV GI: NPO, OGT, Nexium,consider trickle TF if no extubation FEN: continue IVF, start to back down on rates, consider correction of bicarb Endo: continue RHI gtt Heme: SQH ID: continue abx at present; presumed source from appy Dispo: ICU I have seen and examined the patient, providing martínez components as outlined below. I have reviewed the resident???s above note; my evaluation of the patient is below: S/p Appy. Still ventilated. WBC improving. ID consult today. Immunosuppression reviewed and adjusted. Hold MMF. Continue Prograf. Level in AM. Stevo Hdz RCP - 06/17/2013 5:31 AM EST SBT hold due to sedation 06/17/13 0400 Ventilator Settings Ventilator Mode SIMV Vol + PS Resp. Rate Set 12 Tidal Volume Set 700 Set FiO2 40 % Set PEEP (cm H2O) 5 PS Above PEEP (cm H2O) 15 Flow Type Decelerating Percent Deceleration 50 Flow Rate (L/min) 63.4 Inspiratory Time 0.9 Sec(s) Inspiratory Cycle: Off (%) 10 Rise Time (sec) 0.05 Trigger Flow (numeric) 5 Ventilator Measurements Resp 12 Tidal Volume Measured Insp. 710 mL Tidal Volume Measured Exp. 701 Peak Inspiratory Pressure 44 Mean Airway Pressure (cm H2O) 12 Minute Ventilation Total Exhaled (L/min) 8.8 SpO2 99 % ETCO2 (mmHg) 44 mmHg Pt has periods of shaking. BS diminished with a mild expiratory wheeze, PRN albuterol was given X 2.Sputum thick and white. Pt not breathing over the ventilators set rate. Noel Horn RT - 06/16/2013 6:01 PM EST 06/16/13 1649 Ventilator Settings Ventilator Mode SIMV Vol + PS Resp. Rate Set 12 Tidal Volume Set 700 Set FiO2 40 % Set PEEP (cm H2O) 5 PS Above PEEP (cm H2O) 15 Ventilator Measurements Resp 12 Tidal Volume Measured Exp. 709 Peak Inspiratory Pressure 36 Mean Airway Pressure (cm H2O) 10 Plateau Pressure (cm H2O) 23 Minute Ventilation Total Exhaled (L/min) 8.6 PEEP Total (cmH2O) 5 cmH20 SpO2 99 % ETCO2 (mmHg) 39 mmHg FIO2 titrated to Maintain SpO2>92% currently FIO2 0.4 otherwise no change. Gentry Long MD - 06/16/2013 1:00 PM EST STAFF PROGRESS NOTE Critical Care Medicine Author: GENTRY LONG MD Patient seen and examined on critical care rounds. Leroy Dailey is a 58 y.o. male with the following active issues:: There are no hospital problems to display for this patient. ASSESSMENT, MANAGEMENT, and DECISION MAKING: Hemodynamics: remains on pressor to support BP; NICOM placed suggestive of volume responsiveness so will bolus Pulmonary: moderate A-a gradient, will tolerate FI02 as tolerated Renal: marginal urine output, see if extra fluid bolus helps ID: empiric abx EXAM: Physical Exam Intubated, eyes closed, does not open Lungs: few rhonchi anteriorly Heart: RRR Abdomen: firm Last value Range last 24 hrs Temperature Temp: 36.9 ??C (98.4 ??F) Temp: [36.9 ??C (98.4 ??F)-37.5 ??C (99.5 ??F)] Heart Rate Heart Rate: 57 Heart Rate: [57-77] Blood Pressure BP: 111/49 mmHg BP: (105-111)/(49-52) Respiratory Rate Resp: 12 Resp: [10-30] SpO2 SpO2: 99 % SpO2: [97 %-100 %] Art BP BP (Arterial Line): 124/59 mmHg BP (Arterial Line): (100-153)/(45-67) IS PATIENT CRITICALLY ILL ? Is there a high potential of sudden, clinically significant, or life threatening deterioration? Yes Is there a need for direct personal assessment and management to treat/prevent multiple vital organfailure/deterioration? Yes PATIENT IS CRITICALLY ILL WITH THESE DIAGNOSES BEING MANAGED BY CCS TEAM: Hypoxemic Resp Failure Hypotension Req Fluids Hypotension Req Pressors TIME spent on the unit excluding procedures: 35 minutes GENTRY LONG MD 06/16/2013 Karyn Harris RN - 06/16/2013 1:32 AM EST Nursing Progress Note Shift Events: 0100 - Pt received via stretcher from [facility]. Pt aaox4. PIV access leaking, IV team notified for IV placement. MD team notified of pt arrival. Pt states pain 08/03 to RLQ, pain increased upon palpation slightly. 020 - Labs sent as ordered 030 - K 6.9, Dr. Segovia notified. Orders received. 0315 - Pt transported to [facility] via stretcher for PA/LAT. 0400 - Plan for OR this am. Awaiting call. 0430 - Dr. Mccann at bedside, pt transported to OR. Vital Signs: Last value Range last 12 hrs Temperature Temp: 37.5 ??C (99.5 ??F) Temp: [37.5 ??C (99.5 ??F)] Heart Rate Heart Rate: 71 Heart Rate: [71-77] Blood Pressure BP: 111/49 mmHg BP: (105-111)/(49-52) Respiratory Rate Resp: 30 Resp: [17-30] SpO2 SpO2: 98 % SpO2: [97 %-98 %] documented in this encounter H&P Notes Alejandra Haddad MD - 06/16/2013 7:02 AM EST Critical Care - Admission Note ID: 58 y.o. Male presents [place] [facility] with acute abdominal pain, now s/p laparoscopic appendectomy. History of Present Illness: HPI Per surgery: Mr Dailey is a 58 M s/p renal transplant in 2007 who presented to OSH with acute abdominal pain and fever with WBC of 12.2. He was in his usual state of health until noon on 06/15/13 when he developed shaking chills and fever an went to the ED where he was found to have a firm and acutely tender RLQ and a temperature of 40.2. In addition to the above findings, he also had a CT abd that showed no acute inflammatory changes, and CXR without infitrates. No family members have been sick recently. He wasgiven 650 mg tylenol, 1 liter bolus NS, 1 g vancomycin, 1 g of ceftriaxone, 500 cc flagyl at the OSH. Recent health concerns include being treated as an outpatient for pneumonia one month ago with antib iotics and has residual cough. Additionally, he has bilateral BKA and wears a prosthesis allowing him to ambulate independently. On exam on arrival to [facility], he was afebrile and found to have RLQ tenderness without rebound or guarding. The CT scan was reviewed from the outside hospital and thought not to show any acute process. He was found to have hyperkalemia and EKG changes for which he received Calcium gluconate IV, insulin and dextrose. Additionally, he was given a bolus of IVF and IV ciprofloxacin. He was taken to the OR for a lap appendectomy. Review of Systems: Review of Systems Intubated and sedated Past Medical and Surgical History: No past medical history on file. Past [...] BELOW-KNEE performed by HENNA GAMINO JR at [facility] MA[facility] OR Prior To Admission Medications: Prescriptions prior to admission Medication Sig Dispense Refill ??? Propranolol (INDERAL LA) 160 mg CR capsule Take 1 capsule by mouth 2 times daily. 180 capsule 3 ??? gabapentin (NEURONTIN) 300 mg capsule Take by mouth 2 times daily. 2 tabs in the AM and 3 tabs in the PM ??? insulin regular human (HUMULIN;NOVOLIN) 100 unit/mL vial injection Inject 80 Units subcutaneously 2 times daily (before meals). ??? fluticasone (FLONASE) 50 mcg/actuation nasal spray 2 sprays by Each Nare route as needed. 64 g 11 ??? Insulin [place], Disposable, (BD INSULIN PEN NEEDLE UF SHORT) 31 X 5/16 Ndle by Other route. 1box = 100 insulin PEN needles. 1 Box 11 ??? MULTIVITS-MINERALS/FA/LYCOPENE (ONE-A-DAY MEN'S MULTIVITAMIN ORAL) Take by mouth daily. ??? glucagon, human recombinant, 1 mg/mL injection Inject 1 mL into the muscle as needed. 1 each 3 ??? insulin NPH human recomb (HUMULIN;NOVOLIN) 100 unit/mL injection Inject 70 Units subcutaneously 2 times daily (before meals). 120 mL 3 ??? Insulin Syringe-Needle U-100 (BD INSULIN SYRINGE ULT-FINE II) 1 mL 31 x 5/16 Syrg 1 Device by Misc.(Non-Drug; Combo Route) route 2 times daily. 200 Device 3 ??? CELLCEPT 250 mg capsule Take 2 capsules by mouth 2 times daily. Kidney Transplant V42.0. Transplant Date; 02-29-08 120 capsule 11 ??? PROGRAF 1 mg capsule Take 1 capsule by mouth 2 times daily. Kidney Transplant V42.0. Transplant Date; 02-29-08. Discharge Date; 03-11-08 60 capsule 11 ??? aspirin 81 mg EC [...] capsule Take 40 mg by mouth daily. Allergies: Allergies Allergen Reactions ??? Penicillins Anaphylaxis ??? Yaneth Inhibitors Cough ??? Clindamycin Hcl Rash ??? Allergenic Extracts Birch and Nut Trees, cats, dust, pollen Family History: No family history on file. Social History and Habits: History Social History ??? Marital Status: Spouse Name: N/A Number of Children: N/A ??? Years of Education: N/A Occupational History ??? Not on file. Social History Main Topics ??? Smoking status: Former Smoker -- 2.0 packs/day for 20 years Types: Cigarettes Quit date: 01/19/1993 ??? Smokeless tobacco: Never Used ??? Alcohol Use: Yes rare ??? Drug Use: No ??? Sexually Active: Not on file deferred Other Topics Concern ??? Not on file Social History Narrative ??? No narrative on file Immunizations: Immunization History Administered Date(s) Administered ??? Hepatitis B 08/20/2004, 09/28/2004, 03/01/2005 ??? Influenza Whole 05/19/2005, 06/25/2008 ??? Pneumococcal Polyvalent 23 12/20/1996, 02/10/2007, 02/23/2012 ??? Td 06/24/1990 Physical Exam: Last Set of Vitals and range of vitals over past 24 hours: Last value Range last 24 hrs Temperature Temp: 37.5 ??C (99.5 ??F) Temp: [37.5 ??C (99.5 ??F)] Heart Rate Heart Rate: 64 Heart Rate: [64-77] Blood Pressure BP: 111/49 mmHg BP: (105-111)/(49-52) Respiratory Rate Resp: 13 Resp: [13-30] SpO2 SpO2: 100 % SpO2: [97 %-100 %] Physical Exam Constitutional: He appears well-developed and well-nourished. No distress. Cardiovascular: Normal rate, regular rhythm and normal heart sounds. Exam reveals no gallop and no friction rub. No murmur heard. Pulmonary/Chest: Breath sounds normal. No respiratory distress. He has no wheezes. He has no rales. Abdominal: Soft. He exhibits no distension. Musculoskeletal: He exhibits no edema. Bilateral BKA. Neurological: Sedated and intubated Skin: Skin is warm and dry. He is not diaphoretic. Microbiology: Blood Cultures: pending Radiology: CXR : No acute changes CT: From OSH Assessment: 58 y.o. Male presents to [facility] with acute abdominal pain, now s/p laparoscopic appendectomy, some concern for CAP. Plan: Neuro: -fentanyl and propofol CV: -CBC and coags now -continue dopamine PRN -EKG. Resp: -CXR now. Remain on ventilator. GI: -NPO : -chang in place. Monitor I/O. -continue tacrolimis. Level tonight prior to evening dose. ID: -renal dosing of vancomycin -IV flagyl and levofloxacin given concern for CAP. -blood cultures pending Endo: -insulin drip Fluids: -NS @200c/hr maintenance Prophylaxis: -SCDs, subQ heparin, nexium Lines: -2 PIV Admit to Critical Care. Full Code. ALEJANDRA HADDAD MD 06/16/2013 Tammy Mccann MD - 06/16/2013 12:52 AM EST Transplant Surgery - Admission H&P Patient Name: Leroy Dailey : [id number] MR#: [id number] 06/16/2013 Hospital Day 0 days ID: 58 M s/p renal transplant in 2007 presenting to OSH with acute abdominal pain and fever. HPI: Mr Dailey is a 58 M s/p renal transplant in 2007 presenting to OSH with acute abdominal pain and fever with WBC of 12.2. He was in his usual state of health until noon on 06/15/13 when he developed shaking chills and fever an went to the ED where he was found to have a firm and acutely tender RLQand a temperature of 40.2. In addition to the above findings, he also had a CT abd that showed no actue inflammatory changes, and CXR without infitrates. No family members have been sick recently. He was given 650 mg tylenol, 1 liter bolus NS, 1 g vancomycin, 1 g of ceftriaxone, 500 cc flagyl at the OSH. Recent health concerns include being treated as an outpatient for pneumonia one month ago with antibiotics and has residual cough. Additionally, he has bilateral BKA and wears a prosthesis allowing himto ambulate independently. On exam on arrival to [facility], he was afebrile and found to have RLQ tenderness without rebound or guarding. The CT scan was reviewed from the outside hospital and thought not to show any acute process. He was found to have hyperkalemia and EKG changes for which he received Calcium gluconate IV, insulin and dextrose. Additionally, he was given a bolus of IVF and IV ciprofloxacin. Review of Systems: As above, otherwise negative Problem List: There are no hospital problems to display for this patient. Active Non-Hospital Problems Diagnosis ??? History of renal transplant ??? Amputee, below knee ??? Delayed wound healing ??? Sensorineural hearing loss, bilateral ??? Tremor, essential ??? Injury, other and unspecified, unspecified site ??? Diabetes mellitus with neuropathy ??? Charcot's arthropathy, diabetic, R ??? Amputee, below knee, L ??? 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ifestations Past Medical and Surgical History: No past medical history on file. Past [...] BELOW-KNEE performed by HENNA GAMINO JR at [facility] OR Allergies: Allergies Allergen Reactions ??? Penicillins Anaphylaxis ??? Yaneth Inhibitors Cough ??? Clindamycin Hcl Rash ??? Allergenic Extracts Birch and Nut Trees, cats, dust, pollen Prior to Admission Medications: Prescriptions prior to admission Medication Sig Dispense Refill ??? Propranolol (INDERAL LA) 160 mg CR capsule Take 1 capsule by mouth 2 times daily. 180 capsule 3 ??? gabapentin (NEURONTIN) 300 mg capsule Take by mouth 2 times daily. 2 tabs in the AM and 3 tabs in the PM ??? insulin regular human (HUMULIN;NOVOLIN) 100 unit/mL vial injection Inject 80 Units subcutaneously 2 times daily (before meals). ??? fluticasone (FLONASE) 50 mcg/actuation nasal spray 2 sprays by Each Nare route as needed. 64 g 11 ??? Insulin [place], Disposable, (BD INSULIN PEN NEEDLE UF SHORT) 31 X 5/16 Ndle by Other route. 1box = 100 insulin PEN needles. 1 Box 11 ??? MULTIVITS-MINERALS/FA/LYCOPENE (ONE-A-DAY MEN'S MULTIVITAMIN ORAL) Take by mouth daily. ??? glucagon, human recombinant, 1 mg/mL injection Inject 1 mL into the muscle as needed. 1 each 3 ??? insulin NPH human recomb (HUMULIN;NOVOLIN) 100 unit/mL injection Inject 70 Units subcutaneously 2 times daily (before meals). 120 mL 3 ??? Insulin Syringe-Needle U-100 (BD INSULIN SYRINGE ULT-FINE II) 1 mL 31 x 5/16 Syrg 1 Device by Misc.(Non-Drug; Combo Route) route 2 times daily. 200 Device 3 ??? CELLCEPT 250 mg capsule Take 2 capsules by mouth 2 times daily. Kidney Transplant V42.0. Transplant Date; 02-29-08 120 capsule 11 ??? PROGRAF 1 mg capsule Take 1 capsule by mouth 2 times daily. Kidney Transplant V42.0. Transplant Date; 02-29-08. Discharge Date; 03-11-08 60 capsule 11 ??? aspirin 81 mg EC [...] capsule Take 40 mg by mouth daily. Family History: No family history on file. Social History and Habits: History Social History ??? Marital Status: Lives with his mother. Girlfriend was with him at OSH. They have arrived and are with him tonight. Social History Main Topics ??? Smoking status: Former Smoker -- 2.0 packs/day for 20 years Types: Cigarettes Quit date: 01/19/1993 ??? Smokeless tobacco: Never Used ??? Alcohol Use: Yes rare ??? Drug Use: No Physical Exam: Last Set of Vitals and range of vitals over past 24 hours: Last value Range last 24 hrs Temperature Temp: 37.5 ??C (99.5 ??F) Heart Rate Heart Rate: 77 Heart Rate: [77] Blood Pressure BP: 105/49 mmHg BP: (105)/(49) Respiratory Rate Resp: 17 Resp: [17] SpO2 SpO2: 97 % SpO2: [97 %] Physical Exam: Gen: Awake and alert, NAD, non- toxic appearance CV: RRR Pulm: Coarse breath sounds b/l Abd: RLQ tenderness at McBurney's point, soft, morbidly obese, no rebound, no guarding. LLQ abd scar. Ext: warm, well perfused, bilateral BKAs. Laboratory (Last 24 Hours): Recent Labs Basename 06/16/13 0145 WBC 21.6* HGB 11.8* HCT 37.4* PLATELET 176 PT -- INR -- PTT -- Recent Labs Basename 06/16/13 0145 NA 140 K 6.9* CL 112* CO2 17* BUN 37* CREATININE 2.51* GLUCOSE -- CALCIUM 8.8 MAGNESIUM 0.58* PHOS 2.8 Imaging: CT abd/ pelvis: On review with radiology, no acute intra-abdominal process found at this time. Finalreads pending. Assessment: 58 M s/p renal transplant in 2007 presenting with RIGHT lower quadrant pain and previously recorded fevers at the OSH. On presentation here, his abdominal exam was increasingly tender-- his imaging from the OSH did not show any acute processes. Plan: Admitted to Transplant Surgery Service Started Cipro/flagyl CXR:PA/ Lateral ordered IVF @125/hr. Given a bolus of IVF NS. cellcept held, given prograft Given calcium gluconate for EKG changes with hyperkalemia, insulin and dextrose. Hold all anti- HTN medications (propranolol) Booking case for appendectomy. ACRTER SEGOVIA MD 06/16/2013 I have seen and examined the patient, providing martínez components as outlined below. I have reviewed the resident???s above note; my evaluation of the patient is below: Admitted with fever and abdominal pain from OSH. CT did not demonstrate appendicitis. However, he developed progressive guarding and tenderness. With leukocytosis. VS as above Abdomen obese, tender with palpation in RLQ CT scan demonstrates no clear appendicitis, but is limited by lack of contrast. A/P Signs consistent with appendicitis. 1. Laparoscopic appendectomy and exploratory laparoscopy. 2. I reviewed the risks and benefits with Mr. Dailey including bleeding, infection, leak, need for ostomy, stroke, Mi, , and possible normal appendix. documented in this encounter Procedure Notes Provider, Scanning - 06/28/2013 1:29 PM ESTAssociated Order(s): SCAN DOC: BATTERY PARTS ASSEMBLER Provider, Scanning - 06/28/2013 1:29 PM ESTAssociated Order(s): SCAN DOC: BATTERY PARTS ASSEMBLER Elizabeth Arguelles APRN - 06/18/2013 9:51 AM ESTAssociated Order(s): PLACE PICC LINE: CONTACT VASCULAR ACCESS PICC/Midline Insertion Procedure Note Indications: Medication Administration This insertion was not to replace a malfunctioning catheter. This insertion was not due to a suspected line-associated infection. Location of Procedure: X-Ray Room 11 Risks and Benefits: The risks and benefits of this procedure were reviewed and informed consent was obtained obtained. Time Out: Prior to the start of the procedure, the patient's identity, intended procedure, site/side, correct patient positioning and presence of the site pascale was confirmed as applicable. The medical history and chart were reviewed to rule out potential contraindications to the planned procedure. Hand Hygiene: The languages and literature instructor did perform hand hygiene prior to line insertion. Catheter type: PICC Lot number: [id number] Procedure Technique: Skin was prepped with chlorhexidine. Skin preparation agent was completely dry at the time of first skin puncture. The following barrier precaution methods were used:large sterile drape, maske/eye shield, large sterile gown, sterile gloves and cap. 3 ml of 1% Lidocaine was used for skin wheal. Ultrasound was used for guidance. Radiographic contrast agent was not injected for vein identification. Procedure Details: Order received for catheter placement. A 5 Fr. triple lumen Bard Power catheter was placed into the right basilic vein over a 0.018 inch guidewire using modified seldinger technique and fluoroscopy. Arm circumference was 43 cm at 2 cm above the insertion site. Final catheter length (with trimming): 43 cm Internal: 43 cm External: 0 cm Tip in SVC per . The line was not placed over a guidewire. Post Procedure: Diagnosis: LAPAROSCOPIC APPENDECTOMY Blood return noted on aspiration of line after placement confirmed. 5 mls of normal saline infused free flowing to gravity via PICC after insertion. Sterile dressing applied: Tegaderm and Biopatch. Findings: The patient did tolerate the procedure well. No Complications. Procedure Comments: Elizabeth Arguelles RN 06/18/2013 documented in this encounter Miscellaneous Notes Miscellaneous - Provider, Scanning - 06/28/2013 1:29 PM EST Miscellaneous - Provider, Scanning - 06/28/2013 1:29 PM EST Miscellaneous - Provider, Scanning - 06/28/2013 1:29 PM EST Plan of Care - Kim Sanchez RN - 06/26/2013 9:26 PM EST Problem: Trauma/Injury Risk (Adult, Obstetric) Goal: Trauma/Injury Risk: Absence of Trauma/Injury/Falls Patient remains free of falls during this hospitalization. Patient has a call villarreal within reach, andaware to alert RN when they are wanting to mobilize. Problem: Pain, Acute (Adult, Obstetric) Goal: Acute Pain: Acceptable Pain Control/Comfort Level - Pain, Acute (Adult, Obstetric) Patient aware to alert RN if pain should occur. RN will monitor patient. Discharge Summary - Eda Weber - 06/26/2013 6:12 PM EST Patient Name: Leroy Dailey Patient Age: 58 y.o. Birthdate: 1955 Admit date: 06/16/2013 Discharge date and time: 06/27/2013 Attending Physician: Ev Buckner,* Discharge Diagnoses (Hospital Problems) and Secondary Diagnoses (Chronic Problems): Active Hospital Problems Diagnosis ?Appendicitis, sp appendectomy 06/16/13 ??? Intermittent fever of unknown origin ??? Tremor/tics Chronic ??? Hyperglycemia ??? Immunosuppression ??? H/O kidney transplant Resolved Hospital Problems Diagnosis Date Resolved No resolved problems to display. Active Non-Hospital Problems Diagnosis ??? History of renal transplant ??? Amputee, [...] mellitus with renal manifestations Operations/Major Procedures: Operations: LAPAROSCOPIC APPENDECTOMY Other Major Procedures: none History of Presentation: Mr Dailey is a 58 M s/p renal transplant in 2007 presenting to OSH with acute abdominal pain and fever with WBC of 12.2. He was in his usual state of health until noon on 06/15/13 when he developed shaking chills and fever an went to the ED where he was found to have a firm and acutely tender RLQ and a temperature of 40.2. In addition to the above findings, he also had a CT abd that showed no actue inflammatory changes, and CXR without infitrates. No family members have been sick recently. He was given 650 mg tylenol, 1 liter bolus NS, 1 g vancomycin, 1 g of ceftriaxone, 500 cc flagyl at the OSH. Recent health concerns include being treated as an outpatient for pneumonia one month ago with antibiotics and has residual cough. Additionally, he has bilateral BKA and wears a prosthesis allowing himto ambulate independently. On exam on arrival to [facility], he was afebrile and found to have RLQ tenderness without rebound or guarding. The CT scan was reviewed from the outside hospital and thought not to show any acute process. He was found to have hyperkalemia and EKG changes for which he received Calcium gluconate IV, insulin and dextrose. Additionally, he was given a bolus of IVF and IV ciprofloxacin. Hospital Course: Complicated by prolonged ICU admission and vent dependence and requiring rehabilitation from deconditioning. Infectious diseases were consulted and recommended 8 days of abx. Spech and swallow therapy was also consulted and he was eventually able to tolerate a full PO diet. By pod 9 he met all discharge criteria, but still needed an inpatient rehabilitation transfer before discharge to home per PT and OT evaluations. Endocrinology was consulted to aid with bg mgmt. Prograf levels were checked and at3.9 no changes to his 07/25 were made. Cellcept was increased back to home dose by pod8. Important Studies and Lab Data: Labs: CBC Lab Results Component Value Date WBC 6.9 06/27/2013 Hemoglobin 10.9* 06/27/2013 Hematocrit 34.4* 06/27/2013 Platelets 254 06/27/2013 Electrolytes No results found for this basename: NA, K, CL, CO2 Lab Results Component Value Date BUN 24* 06/26/2013 CREATININE 1.16 06/26/2013 Discharge Conditions/Prognosis: Stable Discharge exam BP 117/49 Pulse 63 Temp 37.1 ??C (98.8 ??F) (Oral) Resp 19 Ht 195.6 cm (6' 5) Wt 145.3 kg(320 lb 5.3 oz) BMI 37.99 kg/m2 SpO2 96% nad alert and oriented Regular Unlabored breathing abd s/nt/nd, incisions c/d/i Discharge to: Rehabilitation Discharge Medications: Current Discharge Medication List New Meds Dose Details metroNIDAZOLE (FLAGYL) 500 mg tablet 500 mg Take 1 tablet by mouth 3 times daily for 4 days. Qty: 12 tablet Refills: 0 propranolol (INDERAL) 80 mg tablet 80 mg Take 1 tablet by mouth every 6 hours. tacrolimus (PROGRAF) 1 mg/2 mL Botl 1 mg Take 2 mLs by mouth 2 times daily. !! insulin aspart (NOVOLOG) pen injection 0-20 Units Inject 0-20 Units subcutaneously 3 times daily(with meals). Qty: 3 mL !! insulin aspart (NOVOLOG) pen injection 3-12 Units Inject 3-12 Units subcutaneously every 4 hours. Qty: 3 mL insulin detemir (LEVEMIR) pen injection 50 Units Inject 50 Units subcutaneously 2 times daily. polyethylene glycol (MIRALAX) 17 gram packet 17 g Take 17 g by mouth daily for 3 days. Qty: 14 each levofloxacin (LEVAQUIN) 500 mg tablet 500 mg Take 1 tablet by mouth daily for 4 days. Qty: 4 tablet Refills: 0 miconazole (MICOTIN) 2 % powder Apply topically 2 times daily. Qty: 70 g !! - Potential duplicate medications found. Please discuss with provider. Continued medications, unchanged Dose Details gabapentin (NEURONTIN) 300 mg capsule Take by mouth 2 times daily. 2 tabs in the AM and 3 tabs in the PM fluticasone (FLONASE) 50 mcg/actuation nasal spray 2 sprays 2 sprays by Each Nare route as needed. Qty: 64 g Refills: 11 Insulin [place], Disposable, (BD INSULIN PEN NEEDLE UF SHORT) 31 X 5/16 Ndle by Other route. 1 box = 100 insulin PEN needles. Qty: 1 Box Refills: 11 MULTIVITS-MINERALS/FA/LYCOPENE (ONE-A-DAY MEN'S MULTIVITAMIN ORAL) Take by mouth daily. glucagon, human recombinant, 1 mg/mL injection 1 mg Inject 1 mL into the muscle as needed. Qty: 1 each Refills: 3 Insulin Syringe-Needle U-100 (BD INSULIN SYRINGE ULT-FINE II) 1 mL 31 x 5/16 Syrg 1 Device 1 Device by [facility].(Non-Drug; Combo Route) route 2 times daily. Qty: 200 Device Refills: 3 CELLCEPT 250 mg capsule 500 mg Take 2 capsules by mouth 2 times daily. Kidney Transplant V42.0. Transplant Date; 02-29-08 Qty: 120 capsule Refills: 11 aspirin 81 mg EC tablet 81 mg Take 81 mg by mouth daily. losartan (COZAAR) 50 mg tablet 50 mg Take 1 tablet by mouth daily. Qty: 30 tablet Refills: 11 CHOLECALCIFEROL, VITAMIN D3, (VITAMIN D-3 ORAL) 2,000 Int'l Units Take 2,000 Int'l Units by mouth daily. folic acid (FOLVITE) 1 mg tablet 2 mg Take 2 mg by mouth daily. simvastatin (ZOCOR) 10 mg tablet 10 mg Take 1 tablet by mouth nightly. Qty: 30 tablet Refills: 11 montelukast (SINGULAIR) 10 mg tablet 10 mg Take 10 mg by mouth daily. omeprazole (PRILOSEC) 40 mg capsule 40 mg Take 40 mg by mouth daily. Medications STOPPED Dose Propranolol (INDERAL LA) 160 mg CR capsule 160 mg insulin regular human (HUMULIN;NOVOLIN) 100 unit/mL vial injection 80 Units insulin NPH human recomb (HUMULIN;NOVOLIN) 100 unit/mL injection 70 Units PROGRAF 1 mg capsule 1 mg Updated Allergies/ADRs: Allergies Allergen Reactions ??? Penicillins Anaphylaxis ??? Yaneth Inhibitors Cough ??? Clindamycin Hcl Rash ??? Allergenic Extracts Birch and Nut Trees, cats, dust, pollen Instructions Given to Patient at Discharge: Provider Instructions Provider Instructions Discharge Instructions CALL YOUR PHYSICIAN IF: You have a fever greater than 101 degrees Farenheit within one month of your surgery. You have diarrhea or vomiting for >24 hours, or stop having bowel movements and passing flatus You have worsening pain, not controlled with your pain medication. You develop redness, swelling, or new drainage from your wound. Prescriptions*: -You have been prescribed narcotic pain medications (such as Percocet, Vicodin, Oxycodone or Dilaudid) to control your discomfort after surgery. DO NOT use alcohol, drive, or operate heavy or complex machinery while taking these medications. Narcotic pain medications may cause constipation. Stool softeners, such as Colace; mild laxatives, such as Milk of Magnesia, Sennakot, or Ducolax tabs; or enemas may be used if needed and are evly-rgu-nxbyujz (OTC) medications available at most [facility]. Prunes or prune juice, taken daily, can also be helpful for constipation treatment or pre vention and are available at most supermarkets. Driving Restrictions*: - No driving if you are too sore from surgery to enter or exit your vehicle comfortably, or if you are too sore to easily check your blind spot. No driving while using prescription pain medications Activities: Discuss return to work or school with your surgeon. No heavy lifting. You may lift what is comfortable to lift with one arm. Nothing greater than 15 pounds until re-evaluated by your physician. Diet: Eat a well-balanced diet. Fresh fruits, vegetables and fiber-containing foods are recommended. Thiswill assist in wound healing. Recommendations: Take it easy for two weeks. Remember, If it hurts, don't do it. Take several slow, short walks each day for the first two weeks, and gradually increase your distance. We recommend at least 4 times a day. Wound Care: You can shower per usual routine and wash the incision area gently. Pat incision dry with a clean, dry towel. Do not submerge the wound under water (avoid spas, pools and bathtubs) until it is fully healed. Do not use creams, oils, or ointments on the wound. Keep the wound open to air if it is not draining. See follow-up appointments below for removal of sutures/masoud. Comfort: Some incision soreness can be expected. Take your pain medication as needed and prescribed. Taper use of pain medication as pain lessens. Follow-up Appointments: Please make a follow up appointment with Dr. Mccann in 2 weeks. Your surgeon may not be [employer], especially during the night or on weekends, so be ready to describe yourself and your surgery when you call. Future Appointments and Orders Future Appointments: Provider: Department: Dept Phone: Center: 08/06/2013 1:00 PM Donell Hernandez MD Endocrinology [phone] [facility] Endocrinology [phone] [facility] Electronically Signed by: EDA WEBER MD 06/26/2013 Consult Note - Carlos Sr RN - 06/25/2013 4:15 PM EST Certified Wound Care Nurse Note Situation: Follow up with house wirer helper for Leroy Dailey r/t injury at left nare; patient has been transferred from ICU to . Background: eDH notes reviewed for history, admitting diagnosis and active problem list. Assessment: Telephone conversation with house wirer helper caring for patient r/t wound at left nare, reviewedCWCN plan of care with house wirer helper. Recommendations: Follow plan of care as outlined below. Wound Care Recommendations: Left nares 1. Cleanse area with normal saline of dermal wound cleanser 2. Apply Aloe [place] protective ointment to area BID and prn to keep area moist Mepilex Border Sacrum dressing-change q3 days and PRN: 1. Cleanse skin with dermal wound cleanser. 2. Apply Mepilex Border Sacrum dressing. 3. Seal edges with skin prep. Pressure Ulcer Prevention: Sensory: Inspect feet, ankles and bony prominences every shift for pressure ulcer development. Inspect tube sites daily; reposition/secure to avoid pressure. Moisture: Follow a bowel and bladder schedule for incontinence patients and document. Cleanse skin gently after each incontinence episode with Aloe [place] Personal Cleanser. Apply Protective Ointment to perineal area bid and prn. Assess skin for fungal infections, notify provider. Activity: Implement reminder system for repositioning every two hours while in bed Nutrition: Evaluate nutrition/hydration status. Follow legal mediator recommendations Mobility: Turn and reposition every 2 hours and document in ED-H. Place a pillow above and below sacral area to off load pressure to the sacrum Offload pressure from heels by placing pillows lengthwise beneath legs while in bed. [facility] AIR bed Use a single quilted chux and a single fitted sheet beneath patient Turn and reposition every two hours. Position hips at triangle icon on the inside of the bed rail. Retract foot of bed to 1-2 inches from the feet to allow for decreased heel pressure. If patient unable to reposition feet independently, elevate patients legs by placing 1-2 pillows lengthwise beneath their legs allowing the heels float over the surface of the bed. Friction and Shear: Reposition avoiding shear forces, utilizing maxislide, trendelenberg and max inflate (boost) feature on beds to assist with repositioning. Position hips at triangle icon on bed. Use skin prep on heels and elbows bid. Keep HOB less than or equal to 30 degrees. Use Aloe [place] Skin Conditioner #2 after baths for extra dry skin. Follow-up: Will plan to follow patient on Tuesday, 2012. Discussed plan with: RN: Shandra Please contact CARLOS SR RN at [phone] or pager [phone] or the wound care team at [phone] or pager [phone] with skin and wound care concerns or questions. Plan of Care - Shandra Eddy RN - 06/25/2013 3:39 PM EST Problem: Skin Integrity Impairment, Risk/Actual (Adult, Obstetric) Intervention: Skin Integrity Impairment, Risk/Actual: Related Risk Factors Patient has a scab in the right nares. Patient has a mepilex to the sacrum that was peeled back and skin assessed to be intact. Patient aware that they need to reposition every 2 hours and to call nursing to assist. RN will monitor. Problem: Trauma/Injury Risk (Adult, Obstetric) Patient remains free of falls during this hospitalization. Patient has a call villarreal within reach and demonstrates knowledge of alerting RN to needs. Patient stood with PT today at the bedside with bilateral leg prosthesis but did not ambulate. Patient transported with assistance of Adam lift from bed to chair. Patient remained sitting in chair for 3 hours. Problem: Pain, Acute (Adult, Obstetric) Goal: Acute Pain: Acceptable Pain Control/Comfort Level - Pain, Acute (Adult, Obstetric) Patient states pain is 0/10. Patient aware to alert RN if experiencing new pain. RN will continue monitor patient. Initial Assessments - Kedar Akins OT - 06/25/2013 11:52 AM EST Occupational Therapy Evaluation Patient profile: Leroy Dailey is a 58 y.o. male patient of Ev Bennett,*, admitted on 06/16/2013 in transfer from OS for abdominal pain and fever. He underwent 06/16/13 LAPAROSCOPIC APPENDECTOMY. He had some post op issues with hypotension. PICC was placed in [facility] on 06/16/13; he is on Vanco. He has had issues with fevers and tremors; he was seen by Neuro and he has baseline tremors. He was extubated on 06/20/13, has had and altered mental status, and was transferred to [facility] on06/22/13. No past medical history on file. Past [...] BELOW-KNEE performed by HENNA GAMINO JR at [facility] MAIN OR ??? 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, in the summer mows the lawn Home Setup: single level, ramp at entrance, pt describes the shower as inaccessible, pt takes spongebaths while seated on the toilet DME: Hand controls on car, scooter, cane, commode, consuelo LE prothesis Baseline ADL/Mobility: Independent with ADL???s, but assistance with IADL???s Code Status: Full Code Activity Orders:up with assistance Precautions: consuelo AKA, fall risk, at risk for skin breakdown Subjective: I only use my scooter in the house, the scooter store told me if I used it outdoors it wouldn't be under warranty Objective: Seen today for OT evaluation, his mother and significant other were present for the eval Cognitive Status/Behavior: alert, oriented to person, place, and time Communication: WFL Vision & Perception: WFL Range of motion, strength, coordination: Bilateral UEs ROM WFL, strength generally 4/5 Sensation: not formally assessed Activities of Daily Living: Self-feeding: indep Hygiene grooming: set up while seated indep Upper and lower body dressing and bathing: ?? Pt requires mod-max assist for bathing/dressing primarily due to poor mobility without prothesis.Currently unable to wear prosthesis due to edema in LEs Toileting: Toilet Transfer: dependent Toilet Hygiene: dependent Functional Mobility: not assessed at this time, he has been lifted up to chair, spoke with PT who had just seen pt in the gym and his LEs are too edematous for the prosthesis to click into place. Wearing neoprene socks for gentle compression to help reduce edema Balance: Pt states he doesn't usually sit unsupported without his protheses as he is afraid he wouldtopple over. IADL???s: Assistance available to patient. Endurance: Information taken from last recorded vitals in flowsheet. Last value Range last 8 hrs Heart Rate Heart Rate: 62 Heart Rate: [62-64] Blood Pressure BP: 165/63 mmHg BP: (154-165)/(59-63) SpO2 SpO2: 96 % SpO2: [96 %-97 %] Pain: denies. Skin: Not assessed, Informed Consent: The family and patient agrees to and understands the OT treatment plan and goals. Education: patient educated on Role of occupational therapy/rehabilitation, Assistive device/technique, ADL, Exercise, Safety, Functional Mobility, Recommendations and Discharge planning and verbalizesunderstanding. Patient status, treatment, and mobility recommendations discussed with nursing. Assessment: Pt has been seen by OT for evaluation, and he presents with impaired ability to perform daily activities and functional mobility secondary to generalized weakness, oor sitting balance and inability to wear BLE protheses. Pt tolerated session fairly well. Pt would benefit from ongoing OT services to maximize functional independence. Recommendations: Equipment needs at discharge: Patient has all necessary equipment Discharge Recommendations: Patient requires ongoing 24/7 supervision. Patient would benefit from skilled therapy interventions to promote functional independence and safety while improving activity tolerance. Goals: To be achieved by 07/02/13. 1. Pt will sit EOB with fair+ sitting balance for 5 min functional activity. 2. Pt will transfer to [facility] with one person assist and appropriate assistive device. 3. Pt will increase upper body strength to 4/5 MMT for ADLs. 4. Pt will complete seated grooming/ADL tasks with minimal assist. Plan: Pt to be seen 2-3 per week for therapy including ADL, Exercise, Functional Mobility, Recommendations and Discharge planning Eval Date: 06/25/2013 Total time spent with patient: 35 minutes Total timed interventions: 0 minutes Pager: [phone] KEDAR AKINS OT 06/25/2013 Occupational Therapy Rehabilitation Department Plan of Care - Ruth Wallace RN - 06/25/2013 5:59 AM EST Problem: Skin Integrity Impairment, Risk/Actual (Adult, Obstetric) Goal: Skin Integrity Impairment, Risk/Actual: Skin Integrity/Wound Healing Pt's skin intact at this time, except for small area of breakdown noted on inside of L nare due to NGT placement. Sacral mepilex on and intact. Pt does have some redness in groin- using powder per MD orders and performing aiden-care PRN. Pt educated on importance of turning/repositioning to prevent skin breakdown. Will continue to monitor. Problem: Pain, Acute (Adult, Obstetric) Goal: Acute Pain: Acceptable Pain Control/Comfort Level - Pain, Acute (Adult, Obstetric) Pt reports no pain at this time. Will continue to monitor. Plan of Care - Ruth Wallace RN - 06/24/2013 2:49 AM EST Problem: Skin Integrity Impairment, Risk/Actual (Adult, Obstetric) Goal: Skin Integrity Impairment, Risk/Actual: Skin Integrity/Wound Healing Pt has area of skin breakdown on L nare from NG tube, reddened w/ definite borders. Pt also has reddened areas on skin folds near groin- applying powder per orders. Turning/positioning as pt will allow. Will continue to monitor. Problem: Pain, Acute (Adult, Obstetric) Goal: Acute Pain: Acceptable Pain Control/Comfort Level - Pain, Acute (Adult, Obstetric) Pt has no c/o pain at this time. Will continue to monitor. Consult Note - Donell Hernandez MD - 06/23/2013 12:14 PM EST Patient Name: Leroy Dailey Patient Age: 58 y.o. Birthdate: 1955 Admit date: 06/16/2013 Attending Physician: Ev Buckner,* We are consulted by Dr Byrne evaluate and treat DM2 after severe appendicitis and subsequent course in ICU for sepsis in the setting of renal transplant with some diminution in function, severe retinopathy that has been treated.,bilateral bka and morbid obesity. Admitted 06/20 with abdominal pain, ultimately had laparoscopic appendectomy that confirmed acute appendicitis. Original diagnosis of Type 2 diabetes in 1988 Current outpatient regimen Victoza 1.8 daily Basal NPH 70 bid Bolus regular 50-80 bid hbgm Bid fbs 180-200 5Pm 180-200 Last HA1c: Ref. Range 03/05/2013 10:05 Hemoglobin A1C Latest Range: 4.3-6.1 % 8.0 (H) Exercise second prosthesis 2 h a day, goes to PT 2x a week complications Eyes extensive prior laser therapy OU Feet Bilateral BKAs Kidneys Renal transplant , last creatinine 1.15 autonomic: no gastroparesis bladder issues hypo unaware tachycardia cardiac no chest pain on exertion No shortness of breath at rest No history of stent cabg chf prevention: last eye exam: December 2012 last microalbumin :2011 flu shot :yes pneumovax: 2011 acei yes Asa Yes statin yes Current diabetes regimen Diet: tube feeds 54 cc/h Insulin : resistant scale correction with aspart every 4 hours (was controlled with iv insulin at 5 units per hour) Ref. Range 06/23/2013 02:11 06/23/2013 03:51 06/23/2013 06:25 06/23/2013 08:12 06/23/2013 10:33 POC Glucose Latest Range: 60-199 mg/dL 291 (H) 268 (H) 221 (H) 257 (H) 228 (H) PMH 1) DM2 2) bilateral bka 3) renal transplant 4) bilateral laser rx for retinopathy 5) morbid oesity 6) mild goiter by exam 7) hearing loss 7) hypertension 8) gerd in past Current hospital meds Metronidazole levaquin mycophenalate Fluticasone propranolol 80 daily aspart insulin Simvastatin ROS Currently no chest pain, no shortness of breath, no nausea, no leg pains. Complains of fatigue, weakness PE Tired pale man 36.6 ??C (97.9 ??F) Pulse 66 rr 20 bp145/63 No stump ulcerations, but some callusing L Results for LEROY DAILEY ( ) as of 06/23/2013 12:18 Ref. Range 06/23/2013 06:08 WBC Latest Range: 4.0-10.0 x10(3)/mcL 5.5 RBC Latest Range: 4.63-6.08 x10(6)/mcL 3.36 (L) Hemoglobin Latest Range: 13.7-17.5 gm/dL 10.2 (L) Hematocrit Latest Range: 40.0-51.0 % 32.1 (L) MCV Latest Range: 79.0-92.0 fL 95.5 (H) Ref. Range 06/23/2013 06:08 BUN Latest Range: 10-20 mg/dL 24 (H) Creatinine Latest Range: 0.80-1.50 mg/dL 1.15 Estimated GFR Latest Range: >=60 >60 1) DM2 - Mr Dodge is currently recovering from an episode of acute appendicitis with sepsis. He is just out of the ICU on day. He is receiving continuoustube feeding and will need a basal insulin aswell. He usually requires 70 units of NPH twice a day, which is equivalent to 100 units a day of nonmeal associated insulin, but that is in the presence of liraglutide, which improves his insulin response by 30-50 percent. Therefore he is likely to require 130-150 units of basal insulin plus insulin for the tube feeds. Recommend: 70 units levemir twice a day, aiming for glucose levels of 120-180. This can be adjusted before the next dose if it proves to be too much or too little to hit the target zone Would reduce this to 50 units bid if his tube feeding is ended resistant scale correction q4 hours Testing q4 hours When able to eat, carb count of 1 unit per 4 grams of carb 2) levaquin - this antibiotic carries a risk of hypoglycemia, mainly by stimulating insulin release.It should not be a problem here but could be if his glucose levels fall to under 100 Will follow with you Initial Assessments - Tammy Wyman, PT - 06/23/2013 10:53 AM EST Physical Therapy Evaluation Patient profile: Pt. is a 58 y.o. male admitted on 06/16/2013 by Ev Bennett,* for sp LAPAROSCOPIC APPENDECTOMY and now - POD #7 . PMH: No past medical history on file. Past [...] BELOW-KNEE performed by HENNA GAMINO JR at [facility] MA[facility] OR ??? Lap, appendectomy 06/16/2013 LAPAROSCOPIC APPENDECTOMY performed by Tammy Mccann MD at [facility] OR Social History: Per CARE MANAGEMENT NOTE: ....BASELINE FUNCTIONAL STATUS/SOCIAL/FAMILY SUPPORTS: Introduced self and role to pt's mother Donnell, and girlfriend Linda. Pt lives with his mother in a single level home, ramps to enter. Pt has prostheses for bilateral LE's, and is able to ambulate with a cane for limited distances (around the house, out to the car). He also has an electric w/c, and a gator for getting around outside. Pt is independent with self care. No home services. Mother states that pt had inpatient rehab following last BKA at [facility] swing bed. Mother states he didn't like it, but will appreciate that he must be independent enough to safely returnhome, as he is a large man, and mother is a small woman, with limited ability to physically help him..... - He reports he can walk 3 minutes with consuelo. Prosthesis and then tires. Uses a cane in the community, [facility] with [facility] as well. Has a trapeze at home. Precautions/Special Considerations: consuelo. BKA with prosthesis, NG tube, IV, telemetry, 330# without prosthesis, cahng catheter, PICC line Subjective: Pt reports he feels pretty good today. Objective: Pt seen for evaluation today. Pain: 2/10 at rest Vital Signs: Sp02: 95 HR: 67 BP: 145/63 - per HAND ROLLER at 10:34 am Mental Status: affect appropriate to mood Musculoskeletal: ROM: consuelo. BKA usually has use of consuelo. Prosthesis, both appear relatively straight and can bend to 90deg sitting eob, UEs ~ 110 deg AROM Strength: weak trunk overall from being in bed ~ a week, arms able to help for bed mobility Sensation: n/a Bed Mobility/balance: Supine to Sit: 2 mod/max assist of two, sat eob ~ 10 min with hands on knees for support only after gaining initial balance, then reaching activities to stress balance - no loss of balance Sit to Supine: max assist of three to manage lines and boost into bed Transfers: Ceiling lift to chair - with 2 assist and another to watch lines - plan to sit upright x 15 min, then recline in bariatric chair x 90 min, then back to bed; up twice a day Informed Consent: The family and patient agrees to and understands the PT treatment plan and goals. Education: family and patient have been educated on Bed mobility, Transfers, Positioning, Safety , Precautions/protocol, Activity pacing/Energy conservation, Role of therapy, Balance and Discharge planning and needs reinforcement. understanding. Issue ex's as appropriate. Patient status, treatment, and mobility recommendations discussed with nursing. Assessment: Pt tolerated today???s evaluation well. This is the first time he has been sitting upright for about a week per his report. His balance was good. The pt would benefit from skilled therapy services to maximize functional independence while in the hospital and to address limitations as notedabove. Recommend the first time wearing prosthesis again that he come down to the gym in the parallel bars to don with 2- 3 assist due to his size and weakness. Will need rehab. Goals: To be achieved by 72 hours. 1. Pt. to demonstrate knowledge of precautions. 2. Pt. to demonstrate understanding of appropriate exercises. 3. Pt. to perform bed mobility with 2 moderate assist. 4. Pt. to perform sit to stand transfers with two moderate assist utilizing parallel bars and prosthesis.. 5. Pt. to ambulate 15 feet; with consuelo. Prosthesis and parallel bars with a chair follow. Plan: Pt to be seen 5-7 times per week for therapy including Bed mobility, Transfers, Exercise, Positioning, Safety , Precautions/protocol, Equipment use, Gait , Activity pacing/Energy conservation, Home program, Role of therapy, Balance and Discharge planning. Patient agrees with plan as stated above. Equipment needs: to be determined at rehab Discharge Recommendations: Patient requires ongoing 24/7 supervision. Patient would benefit from skilled therapy interventions to promote functional independence and safety while improving activity tolerance. Occupational Therapy consult Total time spent with patient: 50 minutes Total timed interventions: 0 minutes TAMMY WYMAN, PT 06/23/2013 Pager: [phone] Physical Therapy Rehabilitation Department Consult Note - Millie Maza RN - 06/22/2013 12:21 PM EST Images from the original note were not included. Certified Wound Care Nurse Note Situation: Asked to see Leroy Dailey by Kory Torres RN for Varun score 12, new left nares pressure ulcer, patient at risk Background: eD-H notes reviewed for history, admitting diagnosis and active problem list. This is a 58 year old male with a past medical history significant for DM s/p bilateral BKAs and ESRD s/p kidney transplant (2007) who was admitted to the ICU for postoperative ventilatory support following a diagnostic laparoscopy and appendectomy Wound Assessment and Care Provided: Upon arrival, patient was awake, slightly sedated. Reason for visit explained. Patient has NG tube in the left nares, at the medial tip of the nares there is an areawhich is covered with red/brown, dry exudate. The surrounding tissue is deep pink, blanching. The NGtube is off loaded and to the lateral aspect of the nares. No other skin issues present. The following picture was taken: Left nares Last Pressure Ulcer Prevention assessment: Shift Pressure Ulcer Prevention Occiput: No Injury Thoracic Spine: No Injury Sacral: No Injury Ischial - left: No Injury Ischial - right: No Injury Heel - left: other (see comment) (BKA) Heel - right: other (see comment) (BKA) Elbow - left: No Injury Elbow - right: No Injury Device Sites: NGT;O2 sat montior;IV sites;chang Other Sites: Left nares Existing Wounds: Wound 06/20/13 1830 Left medial nostril ulceration (Active) Wound (WDL) Ex 06/22/2013 9:00 AM Dressing Appearance no dressing 06/22/2013 9:00 AM Wound Base dry;other (see comments) 06/22/2013 9:00 AM Periwound Area pink;dry 06/22/2013 9:00 AM Wound Edges fixed 06/22/2013 9:00 AM Drainage Characteristics/Odor no odor 06/22/2013 9:00 AM Drainage Amount none 06/22/2013 9:00 AM Incision Wound Care - Cleansed W/ dermal wound cleanser 06/22/2013 9:00 AM Specialty Bed Total [facility] Connect 06/22/2013 9:00 AM Labs Lab Results Component Value Date ALBUMIN 2.3* 06/18/2013 ALBUMIN 3.0* 06/16/2013 ALBUMIN 3.5 06/16/2013 HA1C 8.0* 03/05/2013 HA1C 6.8* 11/29/2012 HA1C 7.7* 08/29/2012 WBC 5.9 06/22/2013 WBC 6.0 06/21/2013 WBC 5.0 06/20/2013 HGB 10.2* 06/22/2013 HGB 9.7* 06/21/2013 HGB 10.1* 06/20/2013 HCT 31.6* 06/22/2013 HCT 30.2* 06/21/2013 HCT 31.5* 06/20/2013 Nutritional Intake Nutrition Diet/Nutrition Prescription: NPO Fluids: adequate Fluids Requirement: IFV/TF Nutrition Risk Screen (every 4 days/sig change) Consult Dietitian if Indicator Present: tube feedingor parenteral nutrition Nutrition Interventions Nutrition Interventions: refer to dietitian Promote Oral Nutrition: oral hygiene provided Current bed:Total [facility] sport Assessment: Suspected deep tissue injury on the medial aspect of the left nares with partial thickness skin loss at the tip of the left inner nares related to NG tube. Wound Care Recommendations: Left nares Ensure that the NG tube does not come into contact with this area 1. Cleanse area with normal saline of dermal wound cleanser 2. Apply Aloe [place] protective ointment to area BID and prn to keep area moist Mepilex Border Sacrum dressing-change q3 days and PRN: 1. Cleanse skin with dermal wound cleanser. 2. Apply Mepilex Border Sacrum dressing. 3. Seal edges with skin prep. Pressure Ulcer Prevention: Sensory: Inspect feet, ankles and bony prominences every shift for pressure ulcer development. Inspect tube sites daily; reposition/secure to avoid pressure. Moisture: Follow a bowel and bladder schedule for incontinence patients and document. Cleanse skin gently after each incontinence episode with Aloe [place] Personal Cleanser. Apply Protective Ointment to perineal area bid and prn. Assess skin for fungal infections, notify provider. Activity: Implement reminder system for repositioning every two hours while in bed Nutrition: Evaluate nutrition/hydration status. Follow legal mediator recommendations Mobility: Turn and reposition every 2 hours and document in ED-H. Place a pillow above and below sacral area to off load pressure to the sacrum Offload pressure from heels by placing pillows lengthwise beneath legs while in bed. [facility] AIR bed Use a single quilted chux and a single fitted sheet beneath patient Turn and reposition every two hours. Position hips at triangle icon on the inside of the bed rail. Retract foot of bed to 1-2 inches from the feet to allow for decreased heel pressure. If patient unable to reposition feet independently, elevate patients legs by placing 1-2 pillows lengthwise beneath their legs allowing the heels float over the surface of the bed. [facility] Bed Use a single flat sheet and a single air chux beneath patient. Use the max inflate and [place] feature to pull patient up in bed. Please turn and reposition at least every two hours. Use the turn assist feature to turn from side to side, and then place pillows lengthwise beneath patient to maintain a 30 degree side lying position. Please use the chair feature whenever possible rather than total lifting patient OOB. Friction and Shear: Reposition avoiding shear forces, utilizing maxislide, trendelenberg and max inflate (boost) feature on beds to assist with repositioning. Position hips at triangle icon on bed. Use skin prep on heels and elbows bid. Keep HOB less than or equal to 30 degrees. Use Aloe [place] Skin Conditioner #2 after baths for extra dry skin. Discussed plan with: MD: Lane Nowak RN: Taina Patel Please contact MILLIE MAZA RN on pager [phone] or the wound care team at [phone] or pager [phone] with skin and wound care concerns or questions. Plan of Care - John North RN - 06/22/2013 12:14 AM EST Problem: Skin Integrity Impairment, Risk/Actual (Adult, Obstetric) Goal: Skin Integrity Impairment, Risk/Actual: Skin Integrity/Wound Healing Outcome: Present (see interventions, notes) Pt has abdominal lap sight incision open to air with no drainage. Also has Left abdominal incision from old Kidney Transplant open to air with no drainage. Pt has stage 2 pressure ulcer on left nare. NG tube floated to relieve pressure, open to air with no drainage. Pt has bilateral below the knee amputation. Pt turned Q 2 hours, heels and knees elevated off bed, low air loss bed used. Will continue to monitor Problem: Trauma/Injury Risk (Adult, Obstetric) Goal: Trauma/Injury Risk: Absence of Trauma/Injury/Falls Outcome: Present (see interventions, notes) Pt has mitt on right hand to prevent pulling out NG tube. Pt still weak and lethargic. Pt slightly confused and needs some reorientation. Bed in low position, wheels locked, side rails up. Will continue to monitor Problem: Pain, Acute (Adult, Obstetric) Goal: Acute Pain: Acceptable Pain Control/Comfort Level - Pain, Acute (Adult, Obstetric) Outcome: Absent and monitoring Pt encouraged to self advocate for pain management. Pt has not complained of any pain. PRN fentanyl available for acute pain. WORD pain scale used. Will continue to monitor Consult Note - Shabana Colindres, RosanneD - 06/21/2013 1:16 PM EST Clinical Pharmacist Note-Vanc Leroy Dailey [id number] 1955 Leroy Dailey is a 58 y.o. male who began antibiotic therapy which includes intravenous vancomycin. Today is day 5 of treatment. Based on a review of the patient???s chart and/or conversation with the patient???s providers vancomycin 1000 mg every 12 hours is being used for empiric coverage of intra-abdominal infection with a targeted goal of 10 - 15 mcg/mL. The following Pharmacokinetic data has been evaluated: Wt Readings from Last 1 Encounters: 06/20/13 114.1 kg (251 lb 8.7 oz) Ht Readings from Last 1 Encounters: 06/16/13 195.6 cm (6' 5) U24 Uric Conc (mg/dL) Date Value 02/23/2012 20.6 Vanc Trough (mg/L) Date Value 06/20/2013 21.5 Creatinine (mg/dL) Date Value 06/21/2013 1.36 Estimated Creatinine Clearance: 81 ml/min (based on Cr of 1.36). (Cockcroft & Gault calculation) After a review of this information the following pharmacokinetic parameters have been estimated: Volume of distribution (Vd) = 102.9 Liters Dosing recommendations: Given that serum creatinine remained the same as yesterday, it is recommended to empirically reducehis vancomycin dose to 750 mg every 12 hours, to start at next scheduled dose should achieve an estimated trough level of 10 - 15 mcg/mL. Monitoring recommendations: A new steady state level should be achieved after 4 half-lives. Recheck vancomycin trough level (30minutes prior to a scheduled dose) if significant changes in SCr, BUN or fluid status occur; otherwise recheck serum trough levels 30 minutes prior to a scheduled dose in 2-3 days. We will continue to monitor the patient as long as he remains on vancomycin therapy. Please watch SCr, BUN and fluid status closely. Please page the care area pharmacist with any questions you may have. Alternately, during off-hours you may call [phone] to contact a pharmacist. Patient has been transferred off ICU service and pharmacy-managed vancomycin service will sign-off. We will continue to monitor vancomycin therapy for this patient and any changes to the vancomycin regimen will need to be made by the primary team. SHABANA COLINDRES, KENA PH [phone] Plan of Care - John North RN - 06/21/2013 4:55 AM EST Problem: Skin Integrity Impairment, Risk/Actual (Adult, Obstetric) Goal: Skin Integrity Impairment, Risk/Actual: Skin Integrity/Wound Healing Outcome: Present (see interventions, notes) Pt has ne abdominal lap incision, open to air no drainage. Pt also has old left abdominal incision from renal transplant, intact with no drainage. Pt has Bilateral below knee amputation. Stage 2 pressure ulcer noted on left nare. NG tube floated to opposite side to relieve pressure. Wound care consultplaced. Pt turned Q2 hours, elbows and knees elevated off bed. Low air loss bed used. Will continue to monitor Problem: Trauma/Injury Risk (Adult, Obstetric) Goal: Trauma/Injury Risk: Absence of Trauma/Injury/Falls Outcome: Present (see interventions, notes) Mitt placed on Pt right hand to prevent pulling at NG tube and lines. Pt calm and cooperative. Bed in low position, wheels locked, alarms on, Side rails up. Will continue to monitor Problem: Pain, Acute (Adult, Obstetric) Goal: Acute Pain: Acceptable Pain Control/Comfort Level - Pain, Acute (Adult, Obstetric) Outcome: Absent and monitoring Pt has PRN fentanyl available for acute pain. Pt has not complained of any pain this shift. Pt encouraged to self advocate for pain management Will continue to monitor Plan of Care - Kory Torres RN - 06/20/2013 5:59 PM EST Problem: Skin Integrity Impairment, Risk/Actual (Adult, Obstetric) Goal: Skin Integrity Impairment, Risk/Actual: Skin Integrity/Wound Healing Outcome: Absent and monitoring Patient on low air loss bed, turned and repositioned Q2hrs and PRN. Perineal care provided, bilateral areas of redness in groin noted, Micotin powder applied. Surgical abdominal incision clean, dry, well approximated and open to air. Elbows and knees (hx of bilateral BKA) elevated off bed. Sacral Mepilex CDI. Will continue to assess and monitor. Problem: Trauma/Injury Risk (Adult, Obstetric) Goal: Trauma/Injury Risk: Absence of Trauma/Injury/Falls Outcome: Absent and monitoring Safety precautions and fall reduction program maintained. Alarms active, audible and set appropriateto patient. Appropriate safety equipment at bedside. Lighting adjusted for safety. Will continue to assess and monitor. Problem: Pain, Acute (Adult, Obstetric) Goal: Acute Pain: Acceptable Pain Control/Comfort Level - Pain, Acute (Adult, Obstetric) Outcome: Absent and monitoring Pain assessed Q2hrs and PRN using nonverbal pain scale. Patient not scoring at this time. Will continue to assess and monitor. Consult Note - Alda Kirby PharmD - 06/20/2013 3:36 PM EST Clinical Pharmacist Note-Vanc Leroy Dailey [id number] 1955 Leroy Dailey is a 58 y.o. male who began antibiotic therapy which includes intravenous vancomycin. Today is day 4 of treatment. Based on a review of the patient???s chart and/or conversation with the patient???s providers vancomycinis being used for empiric coverage of an intraabdominal infection with a targeted goal of 10 - 15 mcg/mL. The following Pharmacokinetic data has been evaluated: Wt Readings from Last 1 Encounters: 06/20/13 114.1 kg (251 lb 8.7 oz) Ht Readings from Last 1 Encounters: 06/16/13 195.6 cm (6' 5) U24 Uric Conc (mg/dL) Date Value 02/23/2012 20.6 Vanc Trough (mg/L) Date Value 06/20/2013 21.5 Creatinine (mg/dL) Date Value 06/20/2013 1.32 Estimated Creatinine Clearance: 83.4 ml/min (based on Cr of 1.32). (Cockcroft & Gault calculation) After a review of this information the following pharmacokinetic parameters have been estimated: Half-Life (T1/2) = 17 hours Elimination rate (Ke) = 0.0406 hr-1 Volume of distribution (Vd) = 74 Liters Dosing recommendations: The trough level drawn today is slightly above the goal target range. However, with his improving renal function, I expect his vancomycin trough level will continue to drop. Therefore, no change in vancomycin dose or dosing interval at this time. Monitoring recommendations: Recheck vancomycin trough level (30 minutes prior to a scheduled dose) if significant changes in SCr, BUN or fluid status occur; otherwise recheck serum trough levels (30 minutes prior to a scheduled dose) in 3-4 days. We will continue to monitor the patient as long as he/she remains on vancomycin therapy. Please watch SCr, BUN and fluid status closely. Please page the care area pharmacist with any questions you may have. Alternately, during off-hours you may call [phone] to contact a pharmacist. ALDA KIRBY PHARMD Pager [phone] Plan of Care - Marissa Nuñez RN - 06/20/2013 3:01 AM EST Problem: Skin Integrity Impairment, Risk/Actual (Adult, Obstetric) Goal: Skin Integrity Impairment, Risk/Actual: Skin Integrity/Wound Healing Outcome: Present (see interventions, notes) Skin grossly intact. Some redness in groin area. Cleansed with soap and water and miconazole powder applied. Pt turned q2 hours and pressure points evaluated. NGT dressing changed and nare intact with no breakdown. Problem: Trauma/Injury Risk (Adult, Obstetric) Goal: Trauma/Injury Risk: Absence of Trauma/Injury/Falls Outcome: Present (see interventions, notes) Pt being turned q2 hours. Mepilex intact. Siderails up x4. B UE soft limb restraints on. Continue tomonitor and notify ho with any acute changes. Problem: Pain, Acute (Adult, Obstetric) Goal: Acute Pain: Acceptable Pain Control/Comfort Level - Pain, Acute (Adult, Obstetric) Outcome: Absent and monitoring NO signs or symptoms of pain at this time. Fentanyl gtt remains off. Continue to monitor for signs and symptoms and medicate appropriately. Consult Note - Manav Smiley MD - 06/19/2013 1:28 PM EST Neurology Consult Note Patient name:Leroy Dailey Date of :1955 Admit date: 06/16/2013 Attending: Dr. Smiley CC: jerking movements We have been asked to see Leroy Dailey by Dr. Mccann HPI: Leroy Dailey is a 58 y.o. man with history of HTN, DM, diabetic nephropathy s/p renal transplant[facility] [place] fevers, chills and RLQ tenderness. Exploratory laproscopy with appendectomy was performed on 06/16 and is currently on abx. Has been on ventilatory support in the ICU since his surgery. As the team has been trying to lighten sedation, they have noted jerking movements that theyare suspicious for myoclonus. Head CT has been negative. He has seen Dr. Boyd (movement disorders specialist) in the past for a slight tremor with sustained posture and action that is more pronouncedon the left than the right. He was on propranolol SR 160 mg BID which apparently improved the effects of the tremors on his ADLs. Past Medical History: Patient Active Problem List Diagnosis Code ??? [...] 780.60 ??? Tremor/tics 781.0 ??? Hyperglycemia 790.29 Medications: ??? [COMPLETED] midazolam 2 mg Intravenous Once ??? [COMPLETED] midazolam 2 mg Intravenous Once ??? [COMPLETED] midazolam 2-4 mg Intravenous Once ??? Vancomycin Level - MAR Order Reminder NOT APPLICABLE Once ??? [] Vancomycin Level - MAR Order Reminder NOT APPLICABLE Once ??? vancomycin 1 g Intravenous Q12H ??? [COMPLETED] polyethylene glycol (MIRALAX)oral powder 17 g Oral Once ??? [DISCONTINUED] tacrolimus 0.5 mg Oral BID ??? meropenem 1 g Intravenous Q8H ??? [DISCONTINUED] vancomycin 1.25 g Intravenous Q24H ??? fluticasone 2 spray Each Nare Daily ??? folic acid 1 mg Oral BID ??? montelukast 10 mg Oral Nightly ??? simvastatin 10 mg Oral QPM ??? chlorhexidine 15 mL Oral Q12H EVE ??? esomeprazole 40 mg Oral Daily Or ??? esomeprazole 40 mg Intravenous Daily ??? heparin (porcine) 5,000 Units Subcutaneous Q12H EVE ??? senna-docusate 1-4 tablet Oral BID ??? miconazole Topical BID ??? [DISCONTINUED] tacrolimus 1 mg Oral BID Allergies: Allergies Allergen Reactions ??? Penicillins Anaphylaxis ??? Yaneth Inhibitors Cough ??? Clindamycin Hcl Rash ??? Allergenic Extracts Birch and Nut Trees, cats, dust, pollen Family history: No family history on file. Social history: History Social History Narrative ??? 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 support engineer with intention 2-3 Hz tremor noted upon intention in RUE and some in LUE Bilateral BKA Labs: Recent Results (from the past 24 hour(s)) POCT GLUCOSE Component Value Range POC Glucose 182 60 - 199 mg/dL POTASSIUM Component Value Range Potassium 4.9 3.5 - 5.0 mmol/L POCT GLUCOSE Component Value Range POC Glucose 175 60 - 199 mg/dL BASIC METABOLIC PANEL (NON-FASTING) Component Value Range Glucose Lvl 171 60 - 199 mg/dL BUN 24 (*) 10 - 20 mg/dL Creatinine 1.57 (*) 0.80 - 1.50 mg/dL Sodium 138 135 - 145 mmol/L Potassium 4.7 3.5 - 5.0 mmol/L Chloride 116 (*) 98 - 107 mmol/L CO2 15 (*) 22 - 31 mmol/L Anion Gap 7 5 - 15 mmol/L Calcium 8.5 8.5 - 10.5 mg/dL Estimated GFR 45 (*) >=60 POCT GLUCOSE Component Value Range POC Glucose 169 60 - 199 mg/dL POCT GLUCOSE Component Value Range POC Glucose 160 60 - 199 mg/dL POCT GLUCOSE Component Value Range POC Glucose 180 60 - 199 mg/dL POCT GLUCOSE Component Value Range POC Glucose 163 60 - 199 mg/dL POTASSIUM Component Value Range Potassium 4.7 3.5 - 5.0 mmol/L POCT GLUCOSE Component Value Range POC Glucose 175 60 - 199 mg/dL POCT GLUCOSE Component Value Range POC Glucose 177 60 - 199 mg/dL TACROLIMUS LEVEL Component Value Range Tacrolimus Lvl 5.9 POTASSIUM Component Value Range Potassium 4.9 3.5 - 5.0 mmol/L BLOOD GAS 2 ARTERIAL Component Value Range pH Art 7.17 (*) pCO2 Art 46 (*) pO2 Art 86 HCO3 Art 16.1 (*) BE Art -12.4 (*) Hgb Blood Gas 9.8 (*) O2HB Art 93.6 (*) COHB Art 0.6 METHB Art 0.2 Na Whole Blood 142 K Whole Blood 4.0 ICa Whole Blood 1.15 (*) CL Whole Blood 124 (*) Gluc Whole Bld 155 FIO2 Art 30 PF Ratio Art 287 POCT GLUCOSE Component Value Range POC Glucose 182 60 - 199 mg/dL BASIC METABOLIC PANEL (NON-FASTING) Component Value Range Glucose Lvl 173 60 - 199 mg/dL BUN 23 (*) 10 - 20 mg/dL Creatinine 1.53 (*) 0.80 - 1.50 mg/dL Sodium 140 135 - 145 mmol/L Potassium 4.8 3.5 - 5.0 mmol/L Chloride 116 (*) 98 - 107 mmol/L CO2 15 (*) 22 - 31 mmol/L Anion Gap 9 5 - 15 mmol/L Calcium 8.3 (*) 8.5 - 10.5 mg/dL Estimated GFR 47 (*) >=60 LACTIC ACID, PLASMA Component Value Range Lactate 0.6 0.5 - 2.2 mmol/L POCT GLUCOSE Component Value Range POC Glucose 174 60 - 199 mg/dL BLOOD GAS 2 ARTERIAL Component Value Range pH Art 7.28 (*) pCO2 Art 31 (*) pO2 Art 95 HCO3 Art 14.0 (*) BE Art -12.8 (*) Hgb Blood Gas 9.0 (*) O2HB Art 95.1 COHB Art 1.3 METHB Art 0.2 Na Whole Blood 141 K Whole Blood 4.0 ICa Whole Blood 1.12 (*) CL Whole Blood 124 (*) Gluc Whole Bld 160 FIO2 Art 30 PF Ratio Art 317 POTASSIUM Component Value Range Potassium 5.0 3.5 - 5.0 mmol/L BLOOD GAS 2 ARTERIAL Component Value Range pH Art 7.35 (*) pCO2 Art 29 (*) pO2 Art 119 (*) HCO3 Art 15.4 (*) BE Art -10.0 (*) Hgb Blood Gas 10.7 (*) O2HB Art 97.2 (*) COHB Art 0.3 METHB Art 0.2 Na Whole Blood 139 K Whole Blood 5.0 ICa Whole Blood 1.28 CL Whole Blood 117 (*) Gluc Whole Bld 198 FIO2 Art 40 PF Ratio Art 298 Temp Art 37.6 POCT GLUCOSE Component Value Range POC Glucose 197 60 - 199 mg/dL CBC (WITH DIFF) Component Value Range WBC 5.4 4.0 - 10.0 x10(3)/mcL RBC 3.03 (*) 4.63 - 6.08 x10(6)/mcL Hemoglobin 9.4 (*) 13.7 - 17.5 gm/dL Hematocrit 30.1 (*) 40.0 - 51.0 % MCV 99.3 (*) 79.0 - 92.0 fL MCH 31.0 25.6 - 32.2 pg MCHC 31.2 (*) 32.0 - 36.5 gm/dL Platelets 132 (*) 145 - 370 x10(3)/mcL RDWSD 50.9 (*) 35.0 - 46.0 fL RDWCV 14.2 10.9 - 14.4 % MPV 8.9 (*) 9.0 - 12.0 fL DIFFERENTIAL, AUTOMATED Component Value Range Neutrophils % 68.1 34.0 - 71.0 % Neutr Abs (ANC) 3.66 1.50 - 6.30 x10(3)/mcL Lymphocytes % 20.8 19.0 - 53.0 % Lymphocytes Abs 1.1 1.0 - 3.6 x10(3)/mcL Monocytes % 7.2 4.0 - 13.0 % Monocyte Abs 0.4 0.2 - 1.0 x10(3)/mcL Eosinophils % 3.3 0.0 - 7.0 % Eosinophils Abs 0.2 0.0 - 0.5 x10(3)/mcL Basophils % 0.4 0.0 - 2.0 % Basophils Abs 0.0 0.0 - 0.2 x10(3)/mcL Immature Gran % 0.20 0.00 - 0.66 % Courtney Gran Abs 0.01 0.00 - 0.05 x10(3)/mcL POCT GLUCOSE Component Value Range POC Glucose 193 60 - 199 mg/dL POCT GLUCOSE Component Value Range POC Glucose 198 60 - 199 mg/dL POTASSIUM Component Value Range Potassium 4.7 3.5 - 5.0 mmol/L Diagnostic Tests and Imaging: Head CT: Impression No acute intracranial hemorrhage, mass, or evidence for acute ischemia in a large vascular territory. Assessment and Plan: 58 y/o man with history of postural tremor seen by Neurology in the past well controlled with propranolol 160 mg SR BID unfortunately has been having worse tremors upon lightening of sedation. From what we see on examination, he has an essential tremor that is worse than usual due to the lack of propranolol. The frequency of his movements are consistent with ET. He is following some commands with us and with his family as well. Unlikely that this is seizure, but will order and arrange for an EEG to evaluate for seizure activity and background activity. Would restart his propranolol when his blood pressure allows. -EEG (will order and arrange) -restart propranolol when BP allows Demar Fernandez DO Resident in Neurology Team Pager [phone] Neurology (Staff) Addendum I saw and evaluated the patient. I have reviewed the resident's history, physical examination findings, assessment and plan during the visit and I agree with the details as written, unless otherwise specified as below. 58 y/o with intubated in ICU for sepsis present with severe upper, lower, and head tremor in contextof not waking appropriately following sedation. On exam, eyes open, not following commands well, no head tremor, sup/pro tremor of both upper extremities. Likely this is related to the severe essential tremor that the patient has at baseline. Since patient is not appropriately waking up, EEG would be helpful. Manav Smiley MD Consult Note - Alda Kirby PharmD - 06/18/2013 3:42 PM EST Clinical Pharmacist Note-Vanc Leroy Dailey [id number] 1955 Leroy Dailey is a 58 y.o. male who began antibiotic therapy which includes intravenous vancomycin. Today is day 2 of treatment. Based on a review of the patient???s chart and/or conversation with the patient???s providers vancomycinis being used for empiric coverage of an intraabdominal infection with a targeted goal of 10 - 15 mcg/mL. The following Pharmacokinetic data has been evaluated: Wt Readings from Last 1 Encounters: 06/17/13 160.3 kg (353 lb 6.4 oz) Ht Readings from Last 1 Encounters: 06/16/13 195.6 cm (6' 5) U24 Uric Conc (mg/dL) Date Value 02/23/2012 20.6 Vanc Trough (mg/L) Date Value 06/18/2013 15.4 Creatinine (mg/dL) Date Value 06/18/2013 1.68* Estimated Creatinine Clearance: 77.8 ml/min (based on Cr of 1.68). (Cockcroft & Gault calculation) After a review of this information the following pharmacokinetic parameters have been estimated based on population kinetics: Half-Life (T1/2) = 9 hours Elimination rate (Ke) = 0.0774 hr-1 Volume of distribution (Vd) = 104 Liters Dosing recommendations: Please note that the level drawn this morning is not a steady state level. With his improved renal function, his current vancomycin dose is likely not enough. Based on this information a dose of 1000 mg every 12 hours, to start at next scheduled dose should achieve an estimated trough level of 10 - 15 mcg/mL. Monitoring recommendations: A new steady state level should be achieved after 4 half-lives. I suggest rechecking a vancomycin trough level (30 minutes prior to a scheduled dose) at 10:30 (time) on 06/20/2013. We will continue to monitor the patient as long as he/she remains on vancomycin therapy. Please watch SCr, BUN and fluid status closely. Please page the care area pharmacist with any questions you may have. Alternately, during off-hours you may call [phone] to contact a pharmacist. ALDA KIRBY PHARMD Pager [phone] Miscellaneous - Provider, Kody - 06/18/2013 2:57 PM EST Consult Note - Alejo Garnett MD - 06/18/2013 9:16 AM EST TRANSPLANT NEPHROLOGY CONSULT PATIENT: Leroy Dailey : 1955 REASON FOR CONSULTATION: immunosuppressant management referred by Dr. Mccann PMH: ESRD secondary to presumed diabetic nephropathy s/p donor kidney transplant on 02/29/08 Diabetes Mellitus S/p bilateral BKA Asthma, nasal polyps. Essential tremor. Hypertension. GERD. Hydrocele. HPI: 58 y.o. male admitted with fever, abdominal pain for consultation regarding immunosuppressant management. He was in his usual state of health until noon on 06/15/13 when he developed shaking chills and fever an went to the ED where he was found to have a firm and acutely tender RLQ and a temperature of 40.2. In addition to the above findings, he also had a CT abd that showed no acute inflammatory changes, and CXR without infitrates. No family members have been sick recently. He was given 650 mg tylenol, 1 liter bolus NS, 1 g vancomycin, 1 g of ceftriaxone, 500 cc flagyl at the OSH. After being admitted to the [facility] he underwent lap appendectomy and is in ICU intubated and is dopamine gtt. TRANSPLANT HISTORY Type of donor: DD Date of transplant: 02/29/08 Underlying disease: Diabetic nephropathy Complications: none Baseline Cr/peak Cr: 1.6 MEDICATIONS: ??? [COMPLETED] magnesium sulfate 1 g Intravenous Once ??? Vancomycin Level - MAR Order Reminder NOT APPLICABLE Once ??? vancomycin 1.25 g Intravenous Q24H ??? [COMPLETED] bolus IV fluid Intravenous Once ??? meropenem 1 g Intravenous Q8H ??? [COMPLETED] bolus IV fluid Intravenous Once ??? [COMPLETED] magnesium sulfate 1 g Intravenous Once ??? [COMPLETED] magnesium sulfate 1 g Intravenous Once ??? [DISCONTINUED] meropenem 1 g Intravenous Q12H ??? [DISCONTINUED] midazolam ??? tacrolimus 1 mg Oral BID ??? fluticasone 2 spray Each Nare Daily ??? folic acid 1 mg Oral BID ??? montelukast 10 mg Oral Nightly ??? simvastatin 10 mg Oral QPM ??? chlorhexidine 15 mL Oral Q12H EVE ??? esomeprazole 40 mg Oral Daily Or ??? esomeprazole 40 mg Intravenous Daily ??? heparin (porcine) 5,000 Units Subcutaneous Q12H EVE ??? senna-docusate 1-4 tablet Oral BID ??? [] Vancomycin Level - MAR Order Reminder NOT APPLICABLE Once ??? miconazole Topical BID ??? [DISCONTINUED] metroNIDAZOLE 500 mg Intravenous Q8H ??? [DISCONTINUED] levofloxacin in D5W 750 mg Intravenous Q24H Allergies: Allergies Allergen Reactions ??? Penicillins Anaphylaxis ??? Yaneth Inhibitors Cough ??? Clindamycin Hcl Rash ??? Allergenic Extracts Birch and Nut Trees, cats, dust, pollen PSH: Past Surgical History Procedure Date ??? Created [...] BELOW-KNEE performed by HENNA GAMINO JR at [facility] OR ??? Lap, appendectomy 06/16/2013 LAPAROSCOPIC APPENDECTOMY performed by Tammy Mccann MD at [facility] OR FH: No family history on file. SH: History Social History ??? Marital Status: Spouse Name: N/A Number of Children: N/A ??? Years of Education: N/A Occupational History ??? Not on file. Social History Main Topics ??? Smoking status: Former Smoker -- 2.0 packs/day for 20 years Types: Cigarettes Quit date: 01/19/1993 ??? Smokeless tobacco: Never Used ??? Alcohol Use: Yes rare ??? Drug Use: No ??? Sexually Active: Not on file deferred Other Topics Concern ??? Not on file Social History Narrative ??? No narrative on file ROS: Unable to obtian PHYSICAL EXAM: Temp: [37.1 ??C (98.8 ??F)-38.3 ??C (100.9 ??F)] Heart Rate: [66-84] Resp: [12-22] BP: -- SpO2: [98 %-100 %] Appearance -sedated and intubated Skin - No exanthem. HEENT - Sclera white. Mucous membranes moist. Pharynx pink. No nasal discharge. Lymph - No cervical lymphadenopathy. Chest: Lungs occassional crackles Heart - S1 and S2 clear w/o murmur, gallop, or rub. JVP not elevated. Abd - Soft. + BS. No bruit. Non tender. No organomegaly. Ext - b/l AKA Warm. No cyanosis. No dependent edema. Neuro -intubated and sedated STUDIES: Lab Results Component Value Date WBC 6.2 06/18/2013 RBC 2.93* 06/18/2013 HGB 9.0* 06/18/2013 HCT 29.3* 06/18/2013 MCV 100.0* 06/18/2013 MCH 30.7 06/18/2013 MCHC 30.7* 06/18/2013 PLATELET 112* 06/18/2013 RDWCV 14.7* 06/18/2013 Lab Results Component Value Date Sodium 140 06/18/2013 Potassium 4.9 06/18/2013 Chloride 118* 06/18/2013 CO2 15* 06/18/2013 BUN 26* 06/18/2013 Creatinine 1.59* 06/18/2013 Lab Results Component Value Date CALCIUM 8.4* 06/18/2013 Lab Results Component Value Date PHOS 3.6 06/17/2013 Component Value Date/Time SPGRAVITYUA 1.011 06/18/2013 0637 PHUADIP 6.0 06/18/2013 0637 PROTEINUADIP Trace* 06/18/2013 0637 GLUCOSEU Negative 06/18/2013 0637 KETONESUA Negative 06/18/2013 0637 UROBILIUADIP Normal 06/18/2013 0637 BLOODUADIP Negative 06/18/2013 0637 NITRATEUA Negative 06/18/2013 0637 LEUKOESTERUA Negative 06/18/2013 0637 WBCUA 2 06/18/2013 0637 BILIRUBINUA Negative 06/18/2013 0637 IMPRESSION/ RECOMMENDATIONS: #1Transplant status ESRD secondary to presumed diabetic nephropathy s/p donor kidney transplant on 02/29/08; withacute allograft dysfucntion from sepsis/hypotension and now back to his baseline cr of 1.6; once MAP> 80 start diuresing, d/w ICU team. #2 Immunosuppression cellcept 500 mg bid-held because of sepsis Prograf 1 mg bid; trough level 06/17 (1100 am) 8.1; recheck level 1 hr before am dose #3 Electrolytes Stable except for low bicarb which most likely is related to chloride rich volume resuscitation #4 Blood Pressure On dopamine gtt as needed #5 Infection prophylaxis None #7 septic shock Ac appendicitis s/p lap appy Pneumonia on ct ID following and pt on vanc and meopenem Char Mclaughlin Pager [phone] I examined the patient, reviewed all of the above findings and assessment of Dr. Mclaughlin and formulated the recommendations which accurately reflect mine. Leroy's tremors and tics are very well known. His overall body habitus and behavior is very similar to when he received the transplant years ago. I do not believe this is anything extraordinary. Plan of Care - Edyta Keyes RN - 06/18/2013 5:18 AM EST Problem: Skin Integrity Impairment, Risk/Actual (Adult, Obstetric) Goal: Skin Integrity Impairment, Risk/Actual: Skin Integrity/Wound Healing Outcome: Present (see interventions, notes) Assessment of current condition: Pt has some excoriation in groin area. Scrotum has +3 edema, and b/l LE +2 edema. Otherwise skin is clean dry and intact. Plan of care: Interdry is placed in folds between legs and scrotum covering excoriated areas. Skin and bony prominences are inspected Q shift. Elbows and legs are floated off bed surface. Sacral mepilex is in place. NG tube is floated in nare. Interventions: Will continue to monitor. Problem: Trauma/Injury Risk (Adult, Obstetric) Goal: Trauma/Injury Risk: Absence of Trauma/Injury/Falls Outcome: Absent and monitoring Pt is free from trauma, injury, and falls at this time. All safety factors are in place; bed is in low position, wheels are locked, side rails are up, and ID, allergy and fall risk bands are in place. Pt's wrists are restrained to prevent injury from possible self extubation. Will continue to monitor risks for trauma, injury, and falls. Problem: Pain, Acute (Adult, Obstetric) Goal: Acute Pain: Acceptable Pain Control/Comfort Level - Pain, Acute (Adult, Obstetric) Outcome: Absent and monitoring Pt's pain is measured using the non-verbal pain scale. Pt rates a 0/10 for pain at this time. Continues on a fentanyl gtt at this time. Pt is frequently positioned to maintain comfort. Will continue tomonitor pain and implement nursing interventions as needed. Consult Note - Nicky Small MD - 06/17/2013 1:42 PM EST Inpatient ID Consultation Date of Consultation: 06/17/2013 Consult Service: Infectious Disease Place of Service: Inpatient Unit Responsible Attending: Staci Reason for Consult: We are seeing Leroy Dailey at the request of Dr. Mccann for the evaluation of Fever and intra-abd infection in a renal transplant patient. I have reviewed the available records, interviewed and examined the patient. History of Present Illness: 58 yo male with h/o HTN, Asthma, GERD, DM, neuropathy s/p bilat BKA, diabetic nephropathy s/p donor renal transplant 02/29/08, recent PNA, who presented with acute onset of fevers, chills, and RLQ tenderness and firmness. He went initially to [facility] where he was found to be febrile to 40.2. Blood cultures were drawn. A CXR was obtained and showed no infiltrate. CT scan of abd/pelvis showed no infectious process. He was given a dose of CTX, Flagyl, and Vanco and transferred to [facility] where he was noted to have progressive RLQ tenderness and guarding. He was placed on Levo/Flagyl/Vanco and taken for an exploratory laparoscopy and appendectomy 06/16. The appendix was noted to be m ildly inflamed with question of early appendicitis. Post-op he remains intubated and in the ICU. He had some hypotension earlier and remains on Dopamine. ID is being consulted to assist with abx management. Review of Systems: Unable to obtain due to patient condition Problem List: Patient Active Problem List Diagnosis Code ??? [...] V49.75 ??? History of renal transplant V42.0 Pertinent Medications: Vanco Levo Flagyl Social History: (per OSH records) Lives with his mother Previous smoker, quit 20 years ago EtoH: not currently Family History: Unable to obtain due to patient condition Physical Exam: Temp: [36.6 ??C (97.9 ??F)-38 ??C (100.4 ??F)] Heart Rate: [57-84] Resp: [0-16] BP: -- SpO2: [98 %-100 %] Gen: NAD. Awake and responsive. Eyes: PERRL, EOMI ENT: ET tube in place Neck: no LAD Resp: bilat wheeze anteriorly, no crackles CV: RRR, S1/S2, no m/r/g Abd: Soft, ND, NABS, + RLQ tenderness. Scar on left lower quadrant. Hem/Lymph: No LE edema, s/p bilat BKA Skin: No rash Neuro: Alert, follows commands Lines: PIV Laboratory: Recent Labs Basename 06/17/13 0330 06/16/13 0700 06/16/13 0145 WBC 10.8* 21.0* 21.6* HGB 10.0* 11.4* 11.8* HCT 33.4* 36.6* 37.4* PLATELET 125* 158 176 Recent Labs Basename 06/17/13 0835 06/17/13 0330 06/17/13 0015 06/16/13 0700 06/16/13 0145 NA -- 140 -- 138 140 K 5.7* 5.6* 6.4* -- -- CL -- 116* -- 114* 112* CO2 -- 15* -- 15* 17* BUN -- 32* -- 37* 37* CREATININE -- 1.96* -- 2.35* 2.51* Recent Labs Basename 06/16/13 0700 06/16/13 0145 03/05/13 1005 AST 13 14 17 ALT 17 15 22 ALKPHOS 86 96 137* BILITOT 1.2 0.9 0.5 BILIDIR 0.8* 0.4* 0.2 Microbiology: Blood Culture: OSH 06/15: NGTD 06/16: NGTD Sputum 06/17: Pending Radiology/Imaging: OSH CT abd/pelvis: No acute intra-abdominal or intrapelvic process. No diverticulitis or appendicitis. Atrophic nooksack kidneys with unremarkable appearing transplanted kidney seen in left lower quadrant. Hepatosplenomegaly. Assessment: 58 yo male with h/o HTN, Asthma, GERD, DM, neuropathy s/p bilat BKA, diabetic nephropathy s/p donor renal transplant 02/29/08, recent PNA, who presented with acute onset of fevers, chills, and RLQ tenderness and firmness. He was febrile to 40.2 at the OSH. Blood cultures have been negative. Imaging of chest and abd has been unremarkable, but he was taken for an exploratory laparoscopy with findings of a mildly inflamed appendix, now s/p appendectomy. He remains intubated and on pressors for hypotension. CT of chest is pending, but be remains on Levo/Flagyl, and vanco for presumed appendicitis. Given that patient is immunosuppressed and remains critically ill, would recommend treatment with Meropenem and vancomycin empirically for now. We will continue to follow. Recommendations: ?? D/C Levofloxacin and Flagyl ?? Continue vancomycin ?? Start meropenem 1 gram IV Q12hr ?? F/u CT chest ?? ID will continue to follow clinically ID Consult GREEN team will continue to follow patient. ID consult recommendations were communicated to the referring team. MULUGETA GOMES MD 06/17/2013 1:42 PM Infectious Diseases Attending I saw the patient with the infectious diseases fellow, and have made some modifications and agree with the presentation of data as shown above. In brief, this 58M with 2008 renal transplant has had fever and progressive RLQ pain. Intraop diagnosis is consistent with appendicitis. I agree with the assessment and plan as outlined above. I spent 55 minutes coordinating care for this patient, confirming data and counseling regarding treatment of infection. Nicky Small MD Electrophysiology Tech Page [phone] Consult Note - Katherine Landeros Jr., [facility] - 06/17/2013 7:34 AM EST Clinical Pharmacist Note-Vanc Leroy Dailey [id number] 1955 Leroy Dailey is a 58 y.o. male who began antibiotic therapy which includes intravenous vancomycin. Today is day 2 of treatment. Based on a review of the patient???s chart and/or conversation with the patient???s providers vancomycinis being used for empiric coverage of an intraabdominal infection with a targeted goal of 10 - 15 mcg/mL. The following Pharmacokinetic data has been evaluated: Wt Readings from Last 1 Encounters: 06/16/13 147.2 kg (324 lb 8.3 oz) Ht Readings from Last 1 Encounters: 06/16/13 195.6 cm (6' 5) Vanc Trough (mg/L) Date Value 06/17/2013 20.4 Creatinine (mg/dL) Date Value 06/17/2013 1.96* Estimated Creatinine Clearance: 63.7 ml/min (based on Cr of 1.96). (Cockcroft & Gault calculation) After a review of this information the following pharmacokinetic parameters have been estimated: Half-Life (T1/2) = 25 hours Elimination rate (Ke) = 0.026 hr-1 Volume of distribution (Vd) = 102 Liters Dosing recommendations: Scheduled dosing seems necessary to maintain therapeutic levels. Scr has returned to near baseline and level this morning represents adequate clearance. Based on this information a dose of 1250 mg every 24 hours, to start at 1100 (time) on 06/17/13 should achieve an estimated trough level of 10 - 15 mcg/mL. Monitoring recommendations: A new steady state level should be achieved after 4 half-lives. I suggest rechecking a vancomycin trough level (30 minutes prior to a scheduled dose) at 1030 (time) on 06/20/13. We will continue to monitor the patient as long as he/she remains on vancomycin therapy. Please watch SCr, BUN and fluid status closely. Please page the care area pharmacist with any questions you may have. Alternately, during off-hours you may call [phone] to contact a pharmacist. KATHERINE LANDEROS JR [facility] P. [phone] Plan of Care - Melly Yusuf RN - 06/17/2013 12:44 AM EST Problem: Pressure Ulcer (Adult, Obstetric) Goal: Prevent/Manage Potential Problems Based on my scope of practice, I assessed for signs and symptoms of potential problems that could bepresent as documented. Pt. Turned/repostioned q2h. Bony prominences padded. External pressure sources removed. Mepilex sacral border remains on/intact. Skin remains dry and grossly intact, will continue to monitor. OR Attestation - Tammy Mccann MD - 06/16/2013 6:31 PM EST Attestation: Case Date: 06/16/2013 I was present and I participated during the entire procedure (does not need to include opening and closing). TAMMY MCCANN MD 06/16/2013 Op Note - Tammy Mccann MD - 06/16/2013 6:24 PM EST [facility] Operative Note Patient Name: Leroy Dailey : [id number] MR#: [id number] Case Date: 06/16/2013 Surgeon: Surgeon(s) and Role: * Tammy Mccann MD - Primary * Aria Gray MD - Resident-Surgeon Chief Preoperative diagnosis: appendicitis Postoperative diagnosis: appendicitis Procedure(s): LAPAROSCOPIC APPENDECTOMY General Estimated Blood Loss: 100 cc Drains: none2 Disposition: awakened from anesthesia, extubated and taken to the recovery room in a stable condition, having suffered no apparent untoward event. Condition: doing well without problems (Please see the Surgical Encounter Summary for any Implant and Specimen details pertinent to this patient.) CLARIFICATION NEEDED Indications for Procedure: Mr. Dailey is a 58-year-old gentleman with a history of end-stage renal disease status post kidney transplant and bilateral below-knee amputation. He presented to an outside hospital this morning with signs of sepsis. He had a fever and a mildly elevated white count. He was transferred to [facility] for further evaluation. On presentation, he complained of mild right lower quadrant discomfort. A CT scan obtained at the outside hospital initially did not demonstrate appendicitis. However, over the period of several hours of observation, his right lower quadrant pain intensified. Therefore, he was taken urgently to the Operating Room with plan for a diagnostic laparoscopy and appendectomy. We discussed the risks and benefits with Mr. Dailey and his family, including bleeding, infection, damage to adjacent structures, stroke, heart attack, , need for ostomy, and possible negative laparoscopic exploration in the case of a normal appendix. He understood these risks and wished to proceed. Procedure and Findings: Following proper informed consent, Mr. Dailey was taken to the Operating Room. He was placed supine on the hospital table. General oral endotracheal anesthesia was induced without difficulty. His gastric and Chang tubes were placed. The abdomen was sterilely prepped and draped in the standard surgical fashion. We performed a proper time-out procedure. We confirmed administration of IV antibiotics and appropriate antithrombotic measures. Next we began with an infraumbilical vertical incision. This was deepened using Bovie cautery. We grasped and elevated the base of the umbilicus, and 0 Vicryl sutures were placed on either side of the midline. The midline was then incised sharply and the abdomen entered under direct vision. We placed a Michaels 12-mm trocar within the abdomen. This was secured in place with the Vicryl sutures. Unfortunately, given his body habitus, this seal was not adequate. Therefore we exchanged the Michaels trocar for a balloon inflatable trocar. We then proceeded to place an additional 12-mm trocar in the right midabdomen. We placed a 5-mm trocar in the lower midline below the umbilicus, and subsequently we placed an additional 5-mm trocar, as visualization was difficult given his body habitus. This was placed in the right lower quadrant. We inspected the abdomen. We noted no evidence of purulent drainage. We proceeded to identify the cecum and then subsequently the appendix. It appeared to be mildly injected and tethered in the retrocecal position. However, there was no clear appendicitis nor diverticulitis. However, we felt it was best to proceed with appendectomy in case this was early appendicitis and to prevent a future episode of appendicitis. Therefore, we began to dissect the appendix from the tip towards the base. We did this using the Harmonic scalpel. Once we had circumferentially dissected the appendix, it was transected with an endo GO stapler and then removed from the abdomen with an EndoCatch bag. Next we proceeded to run the small bowel from the terminal ileum back to at least the mid jejunum and perhaps even a bit further back. As his pain and tenderness were exclusively in the right lower quadrant, we felt that this was an adequate exploration of his small bowel. We did inspect the remainder of the colon including the cecum, ascending, transverse, and descending colon. We specifically looked at the sigmoid colon and found no evidence of active diverticular disease. The gallbladder appeared to be uninfected and was pale and blue. Likewise, we did not see evidence of perforated gastric ulcer or other source of sepsis. We inspected our resection site for the appendix one additional time and made sure it was completely hemostatic. The area was irrigated with sterile saline. We then proceeded to close. All the ports were removed under direct vision. We then closed the midline periumbilical wound with 0 Prolene sutures. All subcutaneous tissues were irrigated, and the skin was closed with 4-0 Monocryl and subsequently with surgical glue. The patient was then awakened and taken to the Recovery Room in apparently good condition. There were no intraoperative complications. Consult Note - Katherine Landeros Jr., [facility] - 06/16/2013 7:54 AM EST Clinical Pharmacist Note-Vanc Leroy Dailey [id number] 1955 Leroy Dailey is a 58 y.o. male who began antibiotic therapy which includes intravenous vancomycin. Today is day 1 of treatment. Based on a review of the patient???s chart and/or conversation with the patient???s providers vancomycin is being used for empiric coverage of a possible intraabdominal infection with a targeted goal of 10 - 15 mcg/mL. The following Pharmacokinetic data has been evaluated: Wt Readings from Last 1 Encounters: 06/16/13 147.2 kg (324 lb 8.3 oz) Ht Readings from Last 1 Encounters: 06/16/13 195.6 cm (6' 5) Creatinine (mg/dL) Date Value 06/16/2013 2.35* Estimated Creatinine Clearance: 53.1 ml/min (based on Cr of 2.35). (Cockcroft & Gault calculation) After a review of this information the following pharmacokinetic parameters have been estimated: Half-Life (T1/2) = ? hours Elimination rate (Ke) = ? hr-1 Volume of distribution (Vd) = 102 Liters Dosing recommendations: Scr is elevated from a baseline that ranges from 1.5-2. Based on this information it is recommendedto give a dose of 3000 mg now. We will reevaluate his renal function over the next 24 hours and determine need for additional doses. Monitoring recommendations: Recheck vancomycin serum trough levels with morning labs. If significant improvement in SCr, BUN orfluid status occurs recheck serum trough levels. Once renal function is determined a scheduled dosing frequency may be possible. Until then it is recommended to redose based upon serum trough levels. We will continue to monitor the patient as long as he/she remains on vancomycin therapy. Please watch SCr, BUN and fluid status closely. Please page the care area pharmacist with any questions you may have. Alternately, during off-hours you may call [phone] to contact a pharmacist. KATHERINE LANDEROS JR [facility], [facility] P. [phone] Brief Op Note - Aria Gray - 06/16/2013 6:10 AM EST Brief Operative Note Patient Name: Leroy Dailey : [id number] MR#: [id number] Case Date: 06/16/2013 Surgeon: Surgeon(s) and Role: * Tammy Mccann MD - Primary * Aria Gray MD - Resident-Surgeon Chief Preoperative diagnosis: appendicitis Postoperative diagnosis: appendicitis Procedure(s): LAPAROSCOPIC APPENDECTOMY Anesthesia: General Findings: Mildly inflamed appendix indicative of probably early appendicitis. Remainder of small bowel and colon without evidence of ischemia, necrosis or inflammation. Complications: None apparent at case end. Fluids: 2.6 L crystalloid Estimated Blood Loss: 100cc Drains: NGT, pt to remain intubated at case end Disposition: Directly to ICU Condition: Fair; pt on pressors to maintain adequate BP to perfuse renal graft; pt to remain intubated given sepsis. (Please see the Surgical Encounter Summary for any Implant and Specimen details pertinent to this patient.) documented in this encounter Plan of Treatment Upcoming Encounters Date Type Specialty Care Team Description 05/26/2022 Office Visit Otolaryngology Ricardo Panda PA [facility] [place] [address] (Wo rk) 06/02/2022 Infusion Hematology and Oncology 06/16/2022 Infusion Hematology and Oncology 06/21/2022 Office Visit Neurology Tyler Rojas MD [facility] [place] [phone] (Wo rk) 06/30/2022 Infusion Hematology and Oncology 07/14/2022 Infusion Hematology and Oncology 07/28/2022 Infusion Hematology and Oncology 08/11/2022 Infusion Hematology and Oncology 11/04/2022 Office Visit Rheumatology Dante Freedman PA [facility] [place] [address] (Wo rk) documented as of this encounter Procedures Procedure Name Priority Date/Time Associated Diagnosis Comme nts [employer] ASSEMBLER SCAN 06/28/2013 1:29 Resu lts for this PM EST procedure are i n the results section. BATTERY PARTS ASSEMBLER SCAN 06/28/2013 1:29 Resu lts for this PM EST procedure are i n the results section. POCT GLUCOSE Routine 06/27/2013 11:41 Results for this AM EST procedure are i n the results section. POCT GLUCOSE Routine 06/27/2013 7:57 Results for this AM EST procedure are i n the results section. DIFFERENTIAL, AUTOMATED Routine 06/27/2013 6:55 R esults for this AM EST procedure are i n the results section. CBC (WITH DIFF) Routine 06/27/2013 6:55 Results f or this AM EST procedure are i n the results section. POCT GLUCOSE Routine 06/27/2013 4:00 Results for this AM EST procedure are i n the results section. POCT GLUCOSE Routine 06/27/2013 12:19 Results for this AM EST procedure are i n the results section. POCT GLUCOSE Routine 06/26/2013 8:15 Results for this PM EST procedure are i n the results section. POCT GLUCOSE Routine 06/26/2013 4:11 Results for this PM EST procedure are i n the results section. POCT GLUCOSE Routine 06/26/2013 12:01 Results for this PM EST procedure are i n the results section. POCT GLUCOSE Routine 06/26/2013 9:05 Results for this AM EST procedure are i n the results section. CMP W/FASTING GLUCOSE Routine 06/26/2013 5:45 Res ults for this AM EST procedure are i n the results section. DIFFERENTIAL, AUTOMATED Routine 06/26/2013 5:45 R esults for this AM EST procedure are i n the results section. CBC (WITH DIFF) Routine 06/26/2013 5:45 Results f or this AM EST procedure are i n the results section. PHOSPHORUS Routine 06/26/2013 5:45 Results for this AM EST procedure are i n the results section. MAGNESIUM Routine 06/26/2013 5:45 Results for this AM EST procedure are i n the results section. POCT GLUCOSE Routine 06/26/2013 3:54 Results for this AM EST procedure are i n the results section. POCT GLUCOSE Routine 06/26/2013 12:14 Results for this AM EST procedure are i n the results section. POCT GLUCOSE Routine 06/25/2013 8:32 Results for this PM EST procedure are i n the results section. POCT GLUCOSE Routine 06/25/2013 5:10 Results for this PM EST procedure are i n the results section. POCT GLUCOSE Routine 06/25/2013 3:28 Results for this PM EST procedure are i n the results section. PLACE PICC LINE: Routine 06/25/2013 12:59 Results for this CONTACT VASCULAR ACCESS PM EST proc edure are in the results section. POCT GLUCOSE Routine 06/25/2013 11:53 Results for this AM EST procedure are i n the results section. POCT GLUCOSE Routine 06/25/2013 8:08 Results for this AM EST procedure are i n the results section. DIFFERENTIAL, AUTOMATED Routine 06/25/2013 5:55 R esults for this AM EST procedure are i n the results section. TACROLIMUS LEVEL Routine 06/25/2013 5:55 Results for this AM EST procedure are i n the results section. CBC (WITH DIFF) Routine 06/25/2013 5:55 Results f or this AM EST procedure are i n the results section. PREALBUMIN Routine 06/25/2013 5:55 Results for this AM EST procedure are i n the results section. POCT GLUCOSE Routine 06/25/2013 4:17 Results for this AM EST procedure are i n the results section. POCT GLUCOSE Routine 06/25/2013 12:26 Results for this AM EST procedure are i n the results section. POCT GLUCOSE Routine 06/24/2013 8:16 Results for this PM EST procedure are i n the results section. POCT GLUCOSE Routine 06/24/2013 5:53 Results for this PM EST procedure are i n the results section. POCT GLUCOSE Routine 06/24/2013 3:52 Results for this PM EST procedure are i n the results section. POCT GLUCOSE Routine 06/24/2013 1:08 Results for this PM EST procedure are i n the results section. POCT GLUCOSE Routine 06/24/2013 12:02 Results for this PM EST procedure are i n the results section. CMP W/FASTING GLUCOSE Routine 06/24/2013 8:08 Res ults for this AM EST procedure are i n the results section. POCT GLUCOSE Routine 06/24/2013 7:46 Results for this AM EST procedure are i n the results section. POCT GLUCOSE Routine 06/24/2013 6:11 Results for this AM EST procedure are i n the results section. POCT GLUCOSE Routine 06/24/2013 4:08 Results for this AM EST procedure are i n the results section. DIFFERENTIAL, AUTOMATED Routine 06/24/2013 3:19 R esults for this AM EST procedure are i n the results section. CBC (WITH DIFF) Routine 06/24/2013 3:19 Results f or this AM EST procedure are i n the results section. POCT GLUCOSE Routine 06/24/2013 12:46 Results for this AM EST procedure are i n the results section. POCT GLUCOSE Routine 06/23/2013 10:23 Results for this PM EST procedure are i n the results section. POCT GLUCOSE Routine 06/23/2013 8:08 Results for this PM EST procedure are i n the results section. POCT GLUCOSE Routine 06/23/2013 7:04 Results for this PM EST procedure are i n the results section. POCT GLUCOSE Routine 06/23/2013 3:51 Results for this PM EST procedure are i n the results section. POCT GLUCOSE Routine 06/23/2013 1:27 Results for this PM EST procedure are i n the results section. POCT GLUCOSE Routine 06/23/2013 10:33 Results for this AM EST procedure are i n the results section. POCT GLUCOSE Routine 06/23/2013 8:12 Results for this AM EST procedure are i n the results section. POCT GLUCOSE Routine 06/23/2013 6:25 Results for this AM EST procedure are i n the results section. CMP W/FASTING GLUCOSE Routine 06/23/2013 6:08 Res ults for this AM EST procedure are i n the results section. DIFFERENTIAL, AUTOMATED Routine 06/23/2013 6:08 R esults for this AM EST procedure are i n the results section. CBC (WITH DIFF) Routine 06/23/2013 6:08 Results f or this AM EST procedure are i n the results section. POCT GLUCOSE Routine 06/23/2013 3:51 Results for this AM EST procedure are i n the results section. POCT GLUCOSE Routine 06/23/2013 2:11 Results for this AM EST procedure are i n the results section. POCT GLUCOSE Routine 06/23/2013 12:07 Results for this AM EST procedure are i n the results section. POCT GLUCOSE Routine 06/22/2013 10:08 Results for this PM EST procedure are i n the results section. POCT GLUCOSE Routine 06/22/2013 7:56 Results for this PM EST procedure are i n the results section. POCT GLUCOSE Routine 06/22/2013 4:38 Results for this PM EST procedure are i n the results section. POCT GLUCOSE Routine 06/22/2013 3:29 Results for this PM EST procedure are i n the results section. POCT GLUCOSE Routine 06/22/2013 2:29 Results for this PM EST procedure are i n the results section. POCT GLUCOSE Routine 06/22/2013 1:20 Results for this PM EST procedure are i n the results section. POCT GLUCOSE Routine 06/22/2013 12:24 Results for this PM EST procedure are i n the results section. POCT GLUCOSE Routine 06/22/2013 11:40 Results for this AM EST procedure are i n the results section. POCT GLUCOSE Routine 06/22/2013 10:25 Results for this AM EST procedure are i n the results section. VANCOMYCIN, TROUGH Timed 06/22/2013 10:20 Resul ts for this AM EST procedure are i n the results section. POCT GLUCOSE Routine 06/22/2013 9:09 Results for this AM EST procedure are i n the results section. POCT GLUCOSE Routine 06/22/2013 7:39 Results for this AM EST procedure are i n the results section. POCT GLUCOSE Routine 06/22/2013 6:18 Results for this AM EST procedure are i n the results section. POCT GLUCOSE Routine 06/22/2013 5:09 Results for this AM EST procedure are i n the results section. POCT GLUCOSE Routine 06/22/2013 4:32 Results for this AM EST procedure are i n the results section. DIFFERENTIAL, AUTOMATED Routine 06/22/2013 4:00 R esults for this AM EST procedure are i n the results section. ABO/RH TYPING Routine 06/22/2013 4:00 Results for this AM EST procedure are i n the results section. CBC (WITH DIFF) Routine 06/22/2013 4:00 Results f or this AM EST procedure are i n the results section. ANTIBODY SCREEN Routine 06/22/2013 4:00 Results f or this AM EST procedure are i n the results section. TYPE AND SCREEN Routine 06/22/2013 4:00 ([facility] [place] AM EST BASIC METABOLIC PANEL Routine 06/22/2013 4:00 Res ults for this (NON-FASTING) AM EST procedure are in the results section. POCT GLUCOSE Routine 06/22/2013 3:07 Results for this AM EST procedure are i n the results section. POCT GLUCOSE Routine 06/22/2013 1:57 Results for this AM EST procedure are i n the results section. POCT GLUCOSE Routine 06/22/2013 1:28 Results for this AM EST procedure are i n the results section. POCT GLUCOSE Routine 06/21/2013 11:50 Results for this PM EST procedure are i n the results section. POCT GLUCOSE Routine 06/21/2013 10:05 Results for this PM EST procedure are i n the results section. POCT GLUCOSE Routine 06/21/2013 9:19 Results for this PM EST procedure are i n the results section. POCT GLUCOSE Routine 06/21/2013 8:01 Results for this PM EST procedure are i n the results section. POCT GLUCOSE Routine 06/21/2013 5:47 Results for this PM EST procedure are i n the results section. POCT GLUCOSE Routine 06/21/2013 4:49 Results for this PM EST procedure are i n the results section. POCT GLUCOSE Routine 06/21/2013 2:30 Results for this PM EST procedure are i n the results section. XR CHEST ONE VIEW Routine 06/21/2013 2:10 Results for this PM EST procedure are i n the results section. URINALYSIS WITH REFLEX Routine 06/21/2013 12:01 R esults for this CULTURE PM EST procedure are i n the results section. URINE CULTURE Routine 06/21/2013 12:00 Results fo r this PM EST procedure are i n the results section. POCT GLUCOSE Routine 06/21/2013 11:34 Results for this AM EST procedure are i n the results section. XR CHEST ONE VIEW Routine 06/21/2013 11:23 Result s for this AM EST procedure are i n the results section. POCT GLUCOSE Routine 06/21/2013 7:55 Results for this AM EST procedure are i n the results section. TACROLIMUS LEVEL Routine 06/21/2013 7:50 Results for this AM EST procedure are i n the results section. POCT GLUCOSE Routine 06/21/2013 6:34 Results for this AM EST procedure are i n the results section. POCT GLUCOSE Routine 06/21/2013 4:33 Results for this AM EST procedure are i n the results section. DIFFERENTIAL, AUTOMATED Routine 06/21/2013 4:30 R esults for this AM EST procedure are i n the results section. CBC (WITH DIFF) Routine 06/21/2013 4:30 Results f or this AM EST procedure are i n the results section. BASIC METABOLIC PANEL Routine 06/21/2013 4:30 Res ults for this (NON-FASTING) AM EST procedure are in the results section. POCT GLUCOSE Routine 06/21/2013 12:11 Results for this AM EST procedure are i n the results section. POCT GLUCOSE Routine 06/20/2013 7:52 Results for this PM EST procedure are i n the results section. POTASSIUM Routine 06/20/2013 7:50 Results for this PM EST procedure are i n the results section. POCT GLUCOSE Routine 06/20/2013 6:12 Results for this PM EST procedure are i n the results section. POCT GLUCOSE Routine 06/20/2013 4:41 Results for this PM EST procedure are i n the results section. POCT GLUCOSE Routine 06/20/2013 12:07 Results for this PM EST procedure are i n the results section. POCT GLUCOSE Routine 06/20/2013 10:33 Results for this AM EST procedure are i n the results section. POCT GLUCOSE Routine 06/20/2013 8:01 Results for this AM EST procedure are i n the results section. TACROLIMUS LEVEL Routine 06/20/2013 8:00 Results for this AM EST procedure are i n the results section. POTASSIUM Routine 06/20/2013 8:00 Results for this AM EST procedure are i n the results section. POCT GLUCOSE Routine 06/20/2013 6:17 Results for this AM EST procedure are i n the results section. DIFFERENTIAL, AUTOMATED Routine 06/20/2013 5:00 R esults for this AM EST procedure are i n the results section. CBC (WITH DIFF) Routine 06/20/2013 5:00 Results f or this AM EST procedure are i n the results section. BASIC METABOLIC PANEL Routine 06/20/2013 5:00 Res ults for this (NON-FASTING) AM EST procedure are in the results section. BLOOD GAS 2 ARTERIAL Routine 06/20/2013 4:56 Resu lts for this AM EST procedure are i n the results section. POCT GLUCOSE Routine 06/20/2013 4:05 Results for this AM EST procedure are i n the results section. POCT GLUCOSE Routine 06/20/2013 2:14 Results for this AM EST procedure are i n the results section. POTASSIUM Routine 06/19/2013 11:56 Results for this PM EST procedure are i n the results section. POCT GLUCOSE Routine 06/19/2013 11:52 Results for this PM EST procedure are i n the results section. BLOOD GAS 2 ARTERIAL Routine 06/19/2013 9:16 Resu lts for this PM EST procedure are i n the results section. POTASSIUM Routine 06/19/2013 9:15 Results for this PM EST procedure are i n the results section. POCT GLUCOSE Routine 06/19/2013 8:09 Results for this PM EST procedure are i n the results section. POCT GLUCOSE Routine 06/19/2013 4:46 Results for this PM EST procedure are i n the results section. POTASSIUM Routine 06/19/2013 4:43 Results for this PM EST procedure are i n the results section. POCT GLUCOSE Routine 06/19/2013 2:50 Results for this PM EST procedure are i n the results section. POTASSIUM Routine 06/19/2013 12:21 Results for this PM EST procedure are i n the results section. POCT GLUCOSE Routine 06/19/2013 12:01 Results for this PM EST procedure are i n the results section. BLOOD CULTURE STAT 06/19/2013 11:07 Results fo r this AM EST procedure are i n the results section. POCT GLUCOSE Routine 06/19/2013 10:04 Results for this AM EST procedure are i n the results section. DIFFERENTIAL, AUTOMATED Routine 06/19/2013 10:00 Results for this AM EST procedure are i n the results section. CBC (WITH DIFF) Routine 06/19/2013 10:00 Results for this AM EST procedure are i n the results section. POCT GLUCOSE Routine 06/19/2013 8:32 Results for this AM EST procedure are i n the results section. BLOOD GAS 2 ARTERIAL Routine 06/19/2013 8:32 Resu lts for this AM EST procedure are i n the results section. EBV PCR QUANT Routine 06/19/2013 8:25 Results for this AM EST procedure are i n the results section. EBV PCR QUANTITATIVE Routine 06/19/2013 8:25 AM EST CMV PCR, QUANTITATIVE Routine 06/19/2013 8:25 Res ults for this AM EST procedure are i n the results section. POTASSIUM Routine 06/19/2013 8:25 Results for this AM EST procedure are i n the results section. CT HEAD WO CONTRAST STAT 06/19/2013 7:22 Resul ts for this (GENERIC) AM EST procedure are i n the results section. BLOOD GAS 2 ARTERIAL Routine 06/19/2013 6:32 Resu lts for this AM EST procedure are i n the results section. POCT GLUCOSE Routine 06/19/2013 5:55 Results for this AM EST procedure are i n the results section. LACTATE, PLASMA STAT 06/19/2013 4:15 Results f or this AM EST procedure are i n the results section. BASIC METABOLIC PANEL STAT 06/19/2013 4:15 Res ults for this (NON-FASTING) AM EST procedure are in the results section. POCT GLUCOSE Routine 06/19/2013 4:12 Results for this AM EST procedure are i n the results section. BLOOD GAS 2 ARTERIAL Routine 06/19/2013 3:45 Resu lts for this AM EST procedure are i n the results section. TACROLIMUS LEVEL Routine 06/19/2013 3:30 Results for this AM EST procedure are i n the results section. POTASSIUM Routine 06/19/2013 3:30 Results for this AM EST procedure are i n the results section. POCT GLUCOSE Routine 06/19/2013 1:48 Results for this AM EST procedure are i n the results section. POCT GLUCOSE Routine 06/18/2013 11:44 Results for this PM EST procedure are i n the results section. POTASSIUM Routine 06/18/2013 10:00 Results for this PM EST procedure are i n the results section. POCT GLUCOSE Routine 06/18/2013 9:59 Results for this PM EST procedure are i n the results section. POCT GLUCOSE Routine 06/18/2013 9:34 Results for this PM EST procedure are i n the results section. POCT GLUCOSE Routine 06/18/2013 7:42 Results for this PM EST procedure are i n the results section. POCT GLUCOSE Routine 06/18/2013 6:20 Results for this PM EST procedure are i n the results section. BASIC METABOLIC PANEL Timed 06/18/2013 6:20 Res ults for this (NON-FASTING) PM EST procedure are in the results section. POCT GLUCOSE Routine 06/18/2013 4:14 Results for this PM EST procedure are i n the results section. POTASSIUM Routine 06/18/2013 2:05 Results for this PM EST procedure are i n the results section. POCT GLUCOSE Routine 06/18/2013 2:02 Results for this PM EST procedure are i n the results section. POCT GLUCOSE Routine 06/18/2013 11:46 Results for this AM EST procedure are i n the results section. XR PICC PLACEMENT OVER Routine 06/18/2013 10:53 R esults for this 5 YEARS (IV TEAM) AM EST procedure are in the results section. VANCOMYCIN, TROUGH Timed 06/18/2013 9:55 Result s for this AM EST procedure are i n the results section. POCT GLUCOSE Routine 06/18/2013 9:53 Results for this AM EST procedure are i n the results section. POCT GLUCOSE Routine 06/18/2013 9:30 Results for this AM EST procedure are i n the results section. LOWER RESPIRATORY Routine 06/18/2013 9:18 Results for this CULTURE AM EST procedure are i n the results section. URINE CULTURE Routine 06/18/2013 9:18 Results for this AM EST procedure are i n the results section. LIPASE Routine 06/18/2013 8:30 Results for this AM EST procedure are i n the results section. AMYLASE Routine 06/18/2013 8:30 Results for this AM EST procedure are i n the results section. COMPREHENSIVE METABOLIC Routine 06/18/2013 8:30 R esults for this PANEL (NON-FASTING) AM EST procedur e are in the results section. POCT GLUCOSE Routine 06/18/2013 8:03 Results for this AM EST procedure are i n the results section. POCT GLUCOSE Routine 06/18/2013 6:59 Results for this AM EST procedure are i n the results section. URINALYSIS WITH REFLEX Routine 06/18/2013 6:37 Re sults for this CULTURE AM EST procedure are i n the results section. URINE CULTURE Routine 06/18/2013 6:37 Results for this AM EST procedure are i n the results section. POCT GLUCOSE Routine 06/18/2013 6:12 Results for this AM EST procedure are i n the results section. BMP W/FASTING GLUCOSE Routine 06/18/2013 6:10 Res ults for this AM EST procedure are i n the results section. DIFFERENTIAL, AUTOMATED Routine 06/18/2013 6:10 R esults for this AM EST procedure are i n the results section. CBC (WITH DIFF) Routine 06/18/2013 6:10 Results f or this AM EST procedure are i n the results section. MAGNESIUM Routine 06/18/2013 6:10 Results for this AM EST procedure are i n the results section. BLOOD GAS 2 ARTERIAL Routine 06/18/2013 6:08 Resu lts for this AM EST procedure are i n the results section. POCT GLUCOSE Routine 06/18/2013 4:18 Results for this AM EST procedure are i n the results section. POCT GLUCOSE Routine 06/18/2013 3:14 Results for this AM EST procedure are i n the results section. POCT GLUCOSE Routine 06/18/2013 2:15 Results for this AM EST procedure are i n the results section. POTASSIUM Routine 06/18/2013 2:15 Results for this AM EST procedure are i n the results section. MAGNESIUM Routine 06/18/2013 2:15 Results for this AM EST procedure are i n the results section. POCT GLUCOSE Routine 06/18/2013 1:06 Results for this AM EST procedure are i n the results section. POCT GLUCOSE Routine 06/17/2013 11:57 Results for this PM EST procedure are i n the results section. POCT GLUCOSE Routine 06/17/2013 10:58 Results for this PM EST procedure are i n the results section. POTASSIUM Timed 06/17/2013 10:20 Results for this PM EST procedure are i n the results section. MAGNESIUM Timed 06/17/2013 10:20 Results for this PM EST procedure are i n the results section. POCT GLUCOSE Routine 06/17/2013 10:17 Results for this PM EST procedure are i n the results section. POCT GLUCOSE Routine 06/17/2013 9:07 Results for this PM EST procedure are i n the results section. BLOOD GAS 2 ARTERIAL Routine 06/17/2013 8:48 Resu lts for this PM EST procedure are i n the results section. POCT GLUCOSE Routine 06/17/2013 8:02 Results for this PM EST procedure are i n the results section. POCT GLUCOSE Routine 06/17/2013 6:43 Results for this PM EST procedure are i n the results section. MECHANICAL VENTILATION Routine 06/17/2013 6:36 PM EST LACTATE, PLASMA Routine 06/17/2013 6:15 Results f or this PM EST procedure are i n the results section. BLOOD GAS 2 ARTERIAL Routine 06/17/2013 6:05 Resu lts for this PM EST procedure are i n the results section. CALCIUM IONIZED WHOLE Routine 06/17/2013 5:45 Res ults for this BLOOD, ART PM EST procedure are i n the results section. BMP W/FASTING GLUCOSE Routine 06/17/2013 5:45 Res ults for this PM EST procedure are i n the results section. PHOSPHORUS Routine 06/17/2013 5:45 Results for this PM EST procedure are i n the results section. MAGNESIUM Routine 06/17/2013 5:45 Results for this PM EST procedure are i n the results section. POCT GLUCOSE Routine 06/17/2013 5:19 Results for this PM EST procedure are i n the results section. POCT GLUCOSE Routine 06/17/2013 4:11 Results for this PM EST procedure are i n the results section. CT CHEST WO CONTRAST Routine 06/17/2013 3:37 Resu lts for this (GENERIC) PM EST procedure are i n the results section. POCT GLUCOSE Routine 06/17/2013 2:48 Results for this PM EST procedure are i n the results section. POTASSIUM Routine 06/17/2013 2:30 Results for this PM EST procedure are i n the results section. POCT GLUCOSE Routine 06/17/2013 2:14 Results for this PM EST procedure are i n the results section. POCT GLUCOSE Routine 06/17/2013 1:02 Results for this PM EST procedure are i n the results section. POCT GLUCOSE Routine 06/17/2013 11:12 Results for this AM EST procedure are i n the results section. TACROLIMUS LEVEL Routine 06/17/2013 11:10 Results for this AM EST procedure are i n the results section. LOWER RESPIRATORY STAT 06/17/2013 10:48 Result s for this CULTURE AM EST procedure are i n the results section. POCT GLUCOSE Routine 06/17/2013 8:40 Results for this AM EST procedure are i n the results section. POTASSIUM Routine 06/17/2013 8:35 Results for this AM EST procedure are i n the results section. POCT GLUCOSE Routine 06/17/2013 6:30 Results for this AM EST procedure are i n the results section. POCT GLUCOSE Routine 06/17/2013 3:55 Results for this AM EST procedure are i n the results section. DIFFERENTIAL, AUTOMATED Routine 06/17/2013 3:30 R esults for this AM EST procedure are i n the results section. CBC (WITH DIFF) Routine 06/17/2013 3:30 Results f or this AM EST procedure are i n the results section. VANCOMYCIN, TROUGH Timed 06/17/2013 3:30 Result s for this AM EST procedure are i n the results section. BASIC METABOLIC PANEL Routine 06/17/2013 3:30 Res ults for this (NON-FASTING) AM EST procedure are in the results section. POCT GLUCOSE Routine 06/17/2013 2:53 Results for this AM EST procedure are i n the results section. EKG 12-LEAD STAT 06/17/2013 2:20 Type II diabetes Results for this AM EST mellitus with renal procedur e are in manifestations the results section. POCT GLUCOSE Routine 06/17/2013 1:11 Results for this AM EST procedure are i n the results section. POTASSIUM Routine 06/17/2013 12:15 Results for this AM EST procedure are i n the results section. POCT GLUCOSE Routine 06/17/2013 12:01 Results for this AM EST procedure are i n the results section. POCT GLUCOSE Routine 06/16/2013 11:05 Results for this PM EST procedure are i n the results section. POCT GLUCOSE Routine 06/16/2013 10:06 Results for this PM EST procedure are i n the results section. XR ABDOMEN 1 VIEW Routine 06/16/2013 9:47 Results for this PM EST procedure are i n the results section. POCT GLUCOSE Routine 06/16/2013 9:44 Results for this PM EST procedure are i n the results section. POCT GLUCOSE Routine 06/16/2013 9:08 Results for this PM EST procedure are i n the results section. POCT GLUCOSE Routine 06/16/2013 7:51 Results for this PM EST procedure are i n the results section. TACROLIMUS LEVEL Routine 06/16/2013 7:50 Results for this PM EST procedure are i n the results section. POTASSIUM Routine 06/16/2013 7:50 Results for this PM EST procedure are i n the results section. POCT GLUCOSE Routine 06/16/2013 7:17 Results for this PM EST procedure are i n the results section. POCT GLUCOSE Routine 06/16/2013 6:43 Results for this PM EST procedure are i n the results section. POCT GLUCOSE Routine 06/16/2013 5:49 Results for this PM EST procedure are i n the results section. POCT GLUCOSE Routine 06/16/2013 4:10 Results for this PM EST procedure are i n the results section. POTASSIUM STAT 06/16/2013 4:00 Results for this PM EST procedure are i n the results section. POCT GLUCOSE Routine 06/16/2013 3:01 Results for this PM EST procedure are i n the results section. POCT GLUCOSE Routine 06/16/2013 2:34 Results for this PM EST procedure are i n the results section. POCT GLUCOSE Routine 06/16/2013 1:11 Results for this PM EST procedure are i n the results section. EKG 12-LEAD STAT 06/16/2013 12:45 Abdominal pain, Results for this PM EST acute, right lower procedure are in quadrant the results section. BLOOD GAS 2 ARTERIAL Routine 06/16/2013 12:24 Res ults for this PM EST procedure are i n the results section. POCT GLUCOSE Routine 06/16/2013 12:06 Results for this PM EST procedure are i n the results section. BETA HYDROXYBUTYRATE Routine 06/16/2013 12:00 Res ults for this PM EST procedure are i n the results section. POTASSIUM Routine 06/16/2013 12:00 Results for this PM EST procedure are i n the results section. POCT GLUCOSE Routine 06/16/2013 11:17 Results for this AM EST procedure are i n the results section. POCT GLUCOSE Routine 06/16/2013 9:57 Results for this AM EST procedure are i n the results section. XR CHEST ONE VIEW STAT 06/16/2013 8:32 Results for this AM EST procedure are i n the results section. XR ABDOMEN 1 VIEW STAT 06/16/2013 8:31 Results for this AM EST procedure are i n the results section. POCT GLUCOSE Routine 06/16/2013 8:01 Results for this AM EST procedure are i n the results section. BLOOD GAS 2 ARTERIAL Routine 06/16/2013 7:55 Resu lts for this AM EST procedure are i n the results section. DIFFERENTIAL, AUTOMATED STAT 06/16/2013 7:00 R esults for this AM EST procedure are i n the results section. PROTHROMBIN TIME STAT 06/16/2013 7:00 Results for this AM EST procedure are i n the results section. CBC (WITH DIFF) STAT 06/16/2013 7:00 Results f or this AM EST procedure are i n the results section. LACTATE, PLASMA STAT 06/16/2013 7:00 Results f or this AM EST procedure are i n the results section. COMPREHENSIVE METABOLIC STAT 06/16/2013 7:00 R esults for this PANEL (NON-FASTING) AM EST procedur e are in the results section. SURGICAL PATHOLOGY Routine 06/16/2013 5:46 Result s for this REPORT AM EST procedure are i n the results section. SPECIMEN TO PATHOLOGY Routine 06/16/2013 5:37 Res ults for this AM EST procedure are i n the results section. BLOOD GAS 2 ARTERIAL Routine 06/16/2013 5:10 Resu lts for this AM EST procedure are i n the results section. LAPAROSCOPIC 06/16/2013 4:16 appendicitis APPENDECTOMY (WRVU AM EST 9.45) POTASSIUM STAT 06/16/2013 3:49 Results for this AM EST procedure are i n the results section. XR CHEST PA AND LATERAL STAT 06/16/2013 3:30 R esults for this AM EST procedure are i n the results section. LAPAROSCOPIC Routine 06/16/2013 3:12 APPENDECTOMY AM EST EKG 12-LEAD STAT 06/16/2013 2:55 Abdominal pain, Results f or this AM EST acute, right lower procedure are in quadrant the results section. BLOOD CULTURE STAT 06/16/2013 2:00 Results for this AM EST procedure are i n the results section. CMP W/FASTING GLUCOSE Routine 06/16/2013 1:45 Res ults for this AM EST procedure are i n the results section. DIFFERENTIAL, MANUAL STAT 06/16/2013 1:45 Resu lts for this AM EST procedure are i n the results section. GOLD TUBE HOLD Routine 06/16/2013 1:45 Results fo r this AM EST procedure are i n the results section. ABO/RH TYPING Routine 06/16/2013 1:45 Results for this AM EST procedure are i n the results section. CBC (WITH DIFF) STAT 06/16/2013 1:45 Results f or this AM EST procedure are i n the results section. ANTIBODY SCREEN Routine 06/16/2013 1:45 Results f or this AM EST procedure are i n the results section. TYPE AND SCREEN Routine 06/16/2013 1:45 ([facility]) AM EST PHOSPHORUS Routine 06/16/2013 1:45 Results for this AM EST procedure are i n the results section. MAGNESIUM Routine 06/16/2013 1:45 Results for this AM EST procedure are i n the results section. LACTATE, PLASMA Routine 06/16/2013 1:45 Results f or this AM EST procedure are i n the results section. REQUEST FOR 2ND READ CT STAT 06/16/2013 1:05 R esults for this ABDOMEN AND PELVIS AM EST procedure are in the results section. POCT GLUCOSE Routine 06/16/2013 12:59 Results for this AM EST procedure are i n the results section. documented in this encounter Results SCAN DOC: [employer] ASSEMBLER (06/28/2013 1:29 PM EST) Narrative 06/28/2013 1:34 PM EST Procedure Note Provider, Scanning - 06/28/2013 1:29 PM EST Scanning Provider MEDIA MGR SCAN EXT ORDR/RSLT SCAN DOC: [employer] ASSEMBLER (06/28/2013 1:29 PM EST) Narrative 06/28/2013 1:34 PM EST Procedure Note Provider, Scanning - 06/28/2013 1:29 PM EST Scanning Provider MEDIA MGR SCAN EXT ORDR/RSLT POCT Glucose (06/27/2013 11:41 AM EST) P athologist Signature POC Glucose 166 60 - 199 CERNER mg/dL MILLENNIUM Comment: Supplemental ranges: <110 mg/dL before meals <200 mg/dL all other times of the day Specimen Anatomical Collection Method Collection Time Receive d Time (Source) Location / / Volume Laterality Blood specimen 06/27/2013 11:41 3 (specimen) AM EST 11:41 AM EST Tammy Mccann MD POINT OF CARE TEST ORDERABLE S Performing Organization Address City/State/ZIP Code Phon e Number [address] CERNER MILLENNIUM POCT Glucose (06/27/2013 7:57 AM EST) athologist [facility] POC Glucose 111 60 - 199 CERNER mg/dL MILLENNIUM Comment: Supplemental ranges: <110 mg/dL before meals <200 mg/dL all other times of the day Specimen Anatomical Collection Method Collection Time Receive d Time (Source) Location / / Volume Laterality Blood specimen 06/27/2013 7:57 AM 013 7:57 (specimen) EST AM EST Tammy Mccann MD POINT OF CARE TEST ORDERABLE S Performing Organization Address City/State/ZIP [place] [address] CERNER MILLENNIUM Differential, Automated (06/27/2013 6:55 AM EST) athologist Signature Neutrophils % 59.2 34.0 - CERNER 71.0 % MILLENNIUM Neutr Abs (ANC) 4.06 1.50 - CERNER 6.30 MILLENNIUM x10(3)/mcL Lymphocytes % 27.1 19.0 - CERNER 53.0 % MILLENNIUM Lymphocytes Abs 1.9 1.0 - 3.6 CERNER x10(3)/mcL MILLENNIUM Monocytes % 7.9 4.0 - 13.0 CERNER % MILLENNIUM Monocyte Abs 0.5 0.2 - 1.0 CERNER x10(3)/mcL MILLENNIUM Eosinophils % 5.0 0.0 - 7.0 CERNER % MILLENNIUM Eosinophils Abs 0.3 0.0 - 0.5 CERNER x10(3)/mcL MILLENNIUM Basophils % 0.7 0.0 - 2.0 CERNER % MILLENNIUM Basophils Abs 0.0 0.0 - 0.2 CERNER x10(3)/mcL MILLENNIUM Immature Gran % 0.10 0.00 - CERNER 0.66 % MILLENNIUM Comment: [...] Location / / Volume Laterality Blood specimen 06/27/2013 6:55 AM 013 7:22 (specimen) EST AM EST Ev Buckner MD HEMATOLOGY ORDERABLES Performing Organization Address City/State/ZIP [place] [address] CERNER MILLENNIUM (ABNORMAL) CBC (with Diff) (06/27/2013 6:55 AM EST) P athologist Signature WBC 6.9 4.0 - 10.0 CERNER x10(3)/mcL MILLENNIUM RBC 3.54 (L) 4.63 - CERNER 6.08 MILLENNIUM x10(6)/mcL Hemoglobin 10.9 (L) 13.7 - CERNER 17.5 gm/dL MILLENNIUM Hematocrit 34.4 (L) 40.0 - CERNER 51.0 % MILLENNIUM MCV 97.2 (H) 79.0 - CERNER 92.0 fL MILLENNIUM MCH 30.8 25.6 - CERNER 32.2 pg MILLENNIUM MCHC 31.7 (L) 32.0 - CERNER 36.5 gm/dL MILLENNIUM Platelets 254 145 - 370 CERNER x10(3)/mcL MILLENNIUM RDWSD 49.1 (H) 35.0 - CERNER 46.0 fL MILLENNIUM RDWCV 13.9 10.9 - CERNER 14.4 % MILLENNIUM MPV 9.0 9.0 - 12.0 CERNER fL MILLENNIUM Specimen Anatomical Collection Method Collection Time Receive d Time (Source) Location / / Volume Laterality Blood specimen 06/27/2013 6:55 AM 013 7:22 (specimen) EST AM EST Resulting Agency Comment Spec In Lab Ev Buckner MD HEMATOLOGY ORDERABLES Performing Organization Address City/[facility]/ZIP Code Phon e Number [address] CERNER MILLENNIUM POCT Glucose (06/27/2013 4:00 AM EST) athologist Signature POC Glucose 143 60 - 199 CERNER mg/dL MILLENNIUM Comment: Supplemental ranges: <110 mg/dL before meals <200 mg/dL all other times of the day Specimen Anatomical Collection Method Collection Time Receive d Time (Source) Location / / Volume Laterality Blood specimen 06/27/2013 4:00 AM 013 4:00 (specimen) EST AM EST Tammy Mccann MD POINT OF CARE TEST ORDERABLE S Performing Organization Address City/[facility]/ZIP Code Phon e Number [address] CERNER MILLENNIUM POCT Glucose (06/27/2013 12:19 AM EST) athologist Signature POC Glucose 178 60 - 199 CERNER mg/dL [facility] Comment: Supplemental ranges: <110 mg/dL before meals <200 mg/dL all other times of the day Specimen Anatomical Collection Method Collection Time Receive d Time (Source) Location / / Volume Laterality Blood specimen 06/27/2013 12:19 3 (specimen) AM EST 12:19 AM EST Tammy Mccann MD POINT OF CARE TEST ORDERABLE S Performing Organization Address City/[facility]/ZIP Code Phon e Number [address] CERNER MILLENNIUM POCT Glucose (06/26/2013 8:15 PM EST) athologist Signature POC Glucose 182 60 - 199 CERNER mg/dL [facility] Comment: Supplemental ranges: <110 mg/dL before meals <200 mg/dL all other times of the day Specimen Anatomical Collection Method Collection Time Receive d Time (Source) Location / / Volume Laterality Blood specimen 06/26/2013 8:15 PM 013 8:15 (specimen) EST PM EST Tammy Mccann MD POINT OF CARE TEST ORDERABLE S Performing Organization Address City/State/ZIP Code Phon e Number [address] CERNER MILLENNIUM POCT Glucose (06/26/2013 4:11 PM EST) athologist Signature POC Glucose 176 60 - 199 CERNER mg/dL MILLENNIUM Comment: Supplemental ranges: <110 mg/dL before meals <200 mg/dL all other times of the day Specimen Anatomical Collection Method Collection Time Receive d Time (Source) Location / / Volume Laterality Blood specimen 06/26/2013 4:11 PM 013 4:11 (specimen) EST PM EST Tammy Mccann MD POINT OF CARE TEST ORDERABLE S Performing Organization Address City/State/ZIP Code Phon e Number [address] CERNER MILLENNIUM POCT Glucose (06/26/2013 12:01 PM EST) athologist Signature POC Glucose 170 60 - 199 CERNER mg/dL MILLENNIUM Comment: Supplemental ranges: <110 mg/dL before meals <200 mg/dL all other times of the day Specimen Anatomical Collection Method Collection Time Receive d Time (Source) Location / / Volume Laterality Blood specimen 06/26/2013 12:01 3 (specimen) PM EST 12:01 PM EST Tammy Mccann MD POINT OF CARE TEST ORDERABLE S Performing Organization Address City/State/ZIP Code Phon e Number [address] CERNER MILLENNIUM POCT Glucose (06/26/2013 9:05 AM EST) athologist Signature POC Glucose 172 60 - 199 CERNER mg/dL MILLENNIUM Comment: Supplemental ranges: <110 mg/dL before meals <200 mg/dL all other times of the day Specimen Anatomical Collection Method Collection Time Receive d Time (Source) Location / / Volume Laterality Blood specimen 06/26/2013 9:05 AM 013 9:05 (specimen) EST AM EST Tammy Mccann MD POINT OF CARE TEST ORDERABLE S Performing Organization Address City/State/ZIP [place] [address] CERNER MILLENNIUM Differential, Automated (06/26/2013 5:45 AM EST) P athologist Signature Neutrophils % 62.0 34.0 - CERNER 71.0 % MILLENNIUM Neutr Abs (ANC) 4.27 1.50 - CERNER 6.30 MILLENNIUM x10(3)/mcL Lymphocytes % 25.9 19.0 - CERNER 53.0 % MILLENNIUM Lymphocytes Abs 1.8 1.0 - 3.6 CERNER x10(3)/mcL MILLENNIUM Monocytes % 7.2 4.0 - 13.0 CERNER % MILLENNIUM Monocyte Abs 0.5 0.2 - 1.0 CERNER x10(3)/mcL MILLENNIUM Eosinophils % 3.8 0.0 - 7.0 CERNER % MILLENNIUM Eosinophils Abs 0.3 0.0 - 0.5 CERNER x10(3)/mcL MILLENNIUM Basophils % 1.0 0.0 - 2.0 CERNER % MILLENNIUM Basophils Abs 0.1 0.0 - 0.2 CERNER x10(3)/mcL MILLENNIUM Immature Gran % 0.10 0.00 - CERNER 0.66 % MILLENNIUM Comment: [...] Location / / Volume Laterality Blood specimen 06/26/2013 5:45 AM 013 5:54 (specimen) EST AM EST Ev Buckner MD HEMATOLOGY ORDERABLES Performing Organization Address City/State/ZIP Code Phon e [place]a [place] [id number] CERNER MILLENNIUM (ABNORMAL) CMP w/fasting Glucose (06/26/2013 5:45 AM EST) P athologist Signature Glucose 95 65 - 99 CERNER Fasting mg/dL MILLENNIUM [...] of Diabetes Mellitus, Position Statement from the [place] [employer]. ??Diabete s Care, Volume 33, Supplement 1, Jul 2009 BUN 24 (H) 10 - 20 mg/dL CERNER MILLENNIU M Creatinine 1.16 0.80 - 1.50 mg/dL CERNER MILL ENNIUM Comment: Please note that the pediatric reference intervals supplied above were not validated at [facility]. Results from pediatri c patients should be interpreted in conjunction to the patient's age, height and muscle mass. Sodium 140 135 - 145 mmol/L CERNER OMKAR NIUM Potassium 3.8 3.5 - 5.0 mmol/L CERNER OMKAR NIUM Comment: Please note: ??Patients with WBC >100,00 0 may have falsely elevated Potassium levels. ??For accurate Potassium quantif ication in these patients send serum separator tube (gold top) for subsequent determinations. ??Contact the Clinical Chemistry Laboratory if there are any qu estions. Chloride 105 98 - 107 mmol/L CERNER MILLENN IUM CO2 26 22 - 31 mmol/L CERNER MILLENNI UM Anion Gap 9 5 - 15 mmol/L CERNER MILLENNIU M Calcium 9.5 8.5 - 10.5 mg/dL CERNER OMKAR NIUM Total Protein 7.6 6.4 - 8.3 gm/dL CERNER MIL LENNIUM Albumin 3.1 (L) 3.2 - 5.2 gm/dL CERNER MILLENN IUM AST 13 0 - 39 unit/L CERNER MILLENNIU M ALT 13 0 - 55 unit/L CERNER MILLENNIU M Alk Phos 84 40 - 120 unit/L CERNER MILLENN IUM Total Bilirubin 0.4 0.2 - 1.3 mg/dL CERNER M ILLENNIUM Bili, Direct 0.2 0.0 - 0.3 mg/dL CERNER MILL ENNIUM Estimated GFR >60 >=60 CERNER MILLENNIU M Comment: This estimated [...] Location / / Volume Laterality Blood specimen 06/26/2013 5:45 AM 013 5:54 (specimen) EST AM EST Resulting Agency Comment Spec In Lab Ev Buckner MD CHEMISTRY ORDERABLES Performing Organization Address City/State/ZIP [place] [address] CERNER MILLENNIUM (ABNORMAL) CBC (with Diff) (06/26/2013 5:45 AM EST) P athologist Signature WBC 6.9 4.0 - 10.0 CERNER x10(3)/mcL MILLENNIUM RBC 3.42 (L) 4.63 - CERNER 6.08 MILLENNIUM x10(6)/mcL Hemoglobin 10.5 (L) 13.7 - CERNER 17.5 gm/dL MILLENNIUM Hematocrit 32.8 (L) 40.0 - CERNER 51.0 % MILLENNIUM MCV 95.9 (H) 79.0 - CERNER 92.0 fL MILLENNIUM MCH 30.7 25.6 - CERNER 32.2 pg MILLENNIUM MCHC 32.0 32.0 - CERNER 36.5 gm/dL MILLENNIUM Platelets 204 145 - 370 CERNER x10(3)/mcL MILLENNIUM RDWSD 47.5 (H) 35.0 - CERNER 46.0 fL MILLENNIUM RDWCV 13.7 10.9 - CERNER 14.4 % MILLENNIUM MPV 8.6 (L) 9.0 - 12.0 CERNER fL MILLENNIUM Specimen Anatomical Collection Method Collection Time Receive d Time (Source) Location / / Volume Laterality Blood specimen 06/26/2013 5:45 AM 013 5:54 (specimen) EST AM EST Resulting Agency Comment Spec In Lab Ev Buckner MD HEMATOLOGY ORDERABLES Performing Organization Address City/[facility]/ZIP [facility] [place] [address] CERNER MILLENNIUM Phosphorus (06/26/2013 5:45 AM EST) athologist Signature Phosphorus 3.9 2.5 - 4.5 CERNER mg/dL MILLENNIUM Specimen Anatomical Collection Method Collection Time Receive d Time (Source) Location / / Volume Laterality Blood specimen 06/26/2013 5:45 AM 013 5:54 (specimen) EST AM EST Resulting Agency Comment Spec In Lab Ev Buckner MD CHEMISTRY ORDERABLES Performing Organization Address City/[facility] [place] [address] CERNER MILLENNIUM (ABNORMAL) Magnesium (06/26/2013 5:45 AM EST) P athologist Signature Magnesium 0.67 (L) 0.69 - 1.07 CERNER mmol/L MILLENNIUM Specimen Anatomical Collection Method Collection Time Receive d Time (Source) Location / / Volume Laterality Blood specimen 06/26/2013 5:45 AM 013 5:54 (specimen) EST AM EST Resulting Agency Comment Spec In Lab Ev Buckner MD CHEMISTRY ORDERABLES Performing Organization Address City/[facility]/ZIP [place] [address] CERNER MILLENNIUM POCT Glucose (06/26/2013 3:54 AM EST) P athologist Signature POC Glucose 106 60 - 199 CERNER mg/dL MILLENNIUM Comment: Supplemental ranges: <110 mg/dL before meals <200 mg/dL all other times of the day Specimen Anatomical Collection Method Collection Time Receive d Time (Source) Location / / Volume Laterality Blood specimen 06/26/2013 3:54 AM 013 3:54 (specimen) EST AM EST Tammy Mccann MD POINT OF CARE TEST ORDERABLE S Performing Organization Address City/[facility]/ZIP Code Phon e Number [address] CERNER MILLENNIUM (ABNORMAL) POCT Glucose (06/26/2013 12:14 AM EST) P athologist Signature POC Glucose 214 (H) 60 - 199 CERNER mg/dL MILLENNIUM Comment: Supplemental ranges: <110 mg/dL before meals <200 mg/dL all other times of the day Specimen Anatomical Collection Method Collection Time Receive d Time (Source) Location / / Volume Laterality Blood specimen 06/26/2013 12:14 3 (specimen) AM EST 12:14 AM EST Tammy Mccann MD POINT OF CARE TEST ORDERABLE S Performing Organization Address City/[facility]/ZIP [place] [address] CERNER MILLENNIUM (ABNORMAL) POCT Glucose (06/25/2013 8:32 PM EST) P athologist Signature POC Glucose 222 (H) 60 - 199 CERNER mg/dL MILLENNIUM Comment: Supplemental ranges: <110 mg/dL before meals <200 mg/dL all other times of the day Specimen Anatomical Collection Method Collection Time Receive d Time (Source) Location / / Volume Laterality Blood specimen 06/25/2013 8:32 PM 013 8:32 (specimen) EST PM EST Tammy Mccann MD POINT OF CARE TEST ORDERABLE S Performing Organization Address City/[facility]/ZIP Code Phon e Number [address] CERNER MILLENNIUM POCT Glucose (06/25/2013 5:10 PM EST) athologist Signature POC Glucose 118 60 - 199 CERNER mg/dL [facility] Comment: Supplemental ranges: <110 mg/dL before meals <200 mg/dL all other times of the day Specimen Anatomical Collection Method Collection Time Receive d Time (Source) Location / / Volume Laterality Blood specimen 06/25/2013 5:10 PM 013 5:10 (specimen) EST PM EST Tammy Mccann MD POINT OF CARE TEST ORDERABLE S Performing Organization Address City/[facility]/ZIP Code Phon e Number [address] CERNER MILLENNIUM POCT Glucose (06/25/2013 3:28 PM EST) athologist Signature POC Glucose 111 60 - 199 CERNER mg/dL [facility] Comment: Supplemental ranges: <110 mg/dL before meals <200 mg/dL all other times of the day Specimen Anatomical Collection Method Collection Time Receive d Time (Source) Location / / Volume Laterality Blood specimen 06/25/2013 3:28 PM 013 3:28 (specimen) EST PM EST Tammy Mccann MD POINT OF CARE TEST ORDERABLE S Performing Organization Address City/[facility]/ZIP Code Phon e Number [address] CERNER MILLENNIUM Place PICC Line: Contact Vascular Access Page [phone] (06/25/2013 12:59 PM EST) Narrative Elizabeth Arguelles, HEALTHCARE SOCIAL WORKER - 06/25/2013 12: 59 PM EST Elizabeth Arguelles, RN ? 06/25/2013 12:59 PM PICC/Midline Insertion Procedure Note Indications: Medication Administration This insertion was not to replace a malf unctioning catheter. This insertion was not due to a suspecte d line-associated infection. Location of Procedure: X-Ray Room 11 Risks and Benefits: The risks and benefits of this procedure were reviewed and informed consent was obtained obtained. Time Out: Prior to the start of the procedure, the patient's identity, intended procedure, site/side, correct p atient positioning and presence of the site pascale was confirmed as applicable. The medical history and chart were reviewed to rule out potential contraindications to the planned procedu re. Hand Hygiene: The languages and literature instructor did perform hand hygiene pr ior to line insertion. Catheter type: PICC Lot number: [id number] Procedure Technique: Skin was prepped with chlorhexidine. Skin preparation agent was completely dr y at the time of first skin puncture. The following barrier precaution methods were used:large sterile drape, maske/eye shield, large sterile g own, sterile gloves and cap. 3 ml of 1% Lidocaine was used for skin w heal. Ultrasound was used for guidance. ??Radiographic contrast ag ent was not injected for vein identification. Procedure Details: Order received for catheter placement. A 5 Fr. triple lumen Bard Power catheter was placed into the right basilic vein over a 0.018 inch guidewire using modified seld shelbi technique and fluoroscopy. Arm circumference was 43 cm at 2 cm above the insertion site. Final catheter length (with trimming): 4 3 cm Internal: 43 cm External: 0 cm Tip in SVC per . The line was not placed over a guidewire . Post Procedure: Diagnosis: LAPAROSCOPIC APPENDECTOMY Blood return noted on aspiration of line after placement confirmed. 5 mls of normal saline infuse d free flowing to gravity via PICC after insertion. Sterile dressi ng applied: Tegaderm and Biopatch. Findings: The patient did tolerate the procedure w ell. No Complications. Procedure Comments: Elizabeth Arguelles RN 06/18/2013 Procedure Note Elizabeth Arguelles, HEALTHCARE SOCIAL WORKER - 06/18/2013 9:5 1 AM EST PICC/Midline Insertion Procedure Note Indications: Medication Administration This insertion was not to replace a malf unctioning catheter. This insertion was not due to a suspecte d line-associated infection. Location of Procedure: X-Ray Room 11 Risks and Benefits: The risks and benefits of this procedure were reviewed and informed consent was obtained obtained. Time Out: Prior to the start of the procedure, the patient's identity, intended procedure, site/side, correct patient positioning and presence of the site pascale was confirmed as applicable. The medical history and chart were reviewed to rule out potential contraind ications to the planned procedure. Hand Hygiene: The languages and literature instructor did perform hand hygiene pr ior to line insertion. Catheter type: PICC Lot number: [id number] Procedure Technique: Skin was prepped with chlorhexidine. Skin preparation agent was completely dr y at the time of first skin puncture. The following barrier precaution methods were used:large sterile drape, maske/eye shield, large sterile gown, sterile gloves and cap. 3 ml of 1% Lidocaine was used for skin w heal. Ultrasound was used for guidance. Radiographic contrast agent was not injected for vein identification. Procedure Details: Order received for catheter placement. A 5 Fr. triple lumen Bard Power catheter was placed into the right basilic vein over a 0.018 inch guidewire using modified seldinger technique and fluoroscopy. Arm circumference was 43 cm at 2 cm above th e insertion site. Final catheter length (with trimming): 4 3 cm Internal: 43 cm External: 0 cm Tip in SVC per . The line was not placed over a guidewire . Post Procedure: Diagnosis: LAPAROSCOPIC APPENDECTOMY Blood return noted on aspiration of line after placement confirmed. 5 mls of normal saline infused free flowing to gravity via PICC after insertion. Sterile dressing applied: Tegaderm and Biopatch. Findings: The patient did tolerate the procedure w ell. No Complications. Procedure Comments: Elizabeth Arguelles RN 06/18/2013 Tammy Mccann MD PROCEDURE/MINOR SURGICAL ORD ERABLES POCT Glucose (06/25/2013 11:53 AM EST) athologist Signature POC Glucose 88 60 - 199 CERNER mg/dL [facility] Comment: Supplemental ranges: <110 mg/dL before meals <200 mg/dL all other times of the day Specimen Anatomical Collection Method Collection Time Receive d Time (Source) Location / / Volume Laterality Blood specimen 06/25/2013 11:53 3 (specimen) AM EST 11:53 AM EST Tammy Mccann MD POINT OF CARE TEST ORDERABLE S Performing Organization Address City/State/ZIP [place] [address] CERNER MILLENNIUM POCT Glucose (06/25/2013 8:08 AM EST) athologist Signature POC Glucose 120 60 - 199 CERNER mg/dL [facility] Comment: Supplemental ranges: <110 mg/dL before meals <200 mg/dL all other times of the day Specimen Anatomical Collection Method Collection Time Receive d Time (Source) Location / / Volume Laterality Blood specimen 06/25/2013 8:08 AM 013 8:08 (specimen) EST AM EST Tammy Mccann MD POINT OF CARE TEST ORDERABLE S Performing Organization Address City/State/ZIP Code Phon e Number [address] CERNER MILLENNIUM Differential, Automated (06/25/2013 5:55 AM EST) athologist Signature Neutrophils % 59.8 34.0 - CERNER 71.0 % MILLENNIUM Neutr Abs (ANC) 3.70 1.50 - CERNER 6.30 MILLENNIUM x10(3)/mcL Lymphocytes % 26.0 19.0 - CERNER 53.0 % MILLENNIUM Lymphocytes Abs 1.6 1.0 - 3.6 CERNER x10(3)/mcL MILLENNIUM Monocytes % 8.7 4.0 - 13.0 CERNER % MILLENNIUM Monocyte Abs 0.5 0.2 - 1.0 CERNER x10(3)/mcL MILLENNIUM Eosinophils % 4.7 0.0 - 7.0 CERNER % MILLENNIUM Eosinophils Abs 0.3 0.0 - 0.5 CERNER x10(3)/mcL MILLENNIUM Basophils % 0.6 0.0 - 2.0 CERNER % MILLENNIUM Basophils [...] Location / / Volume Laterality Blood specimen 06/25/2013 5:55 AM 013 6:59 (specimen) EST AM EST Ev Buckner MD HEMATOLOGY ORDERABLES Performing Organization Address City/[facility]/ZIP [place] [address] CERNER MILLENNIUM (ABNORMAL) CBC (with Diff) (06/25/2013 5:55 AM EST) P athologist Signature WBC 6.2 4.0 - 10.0 CERNER x10(3)/mcL MILLENNIUM RBC 3.30 (L) 4.63 - CERNER 6.08 MILLENNIUM x10(6)/mcL Hemoglobin 10.2 (L) 13.7 - CERNER 17.5 gm/dL MILLENNIUM Hematocrit 31.8 (L) 40.0 - CERNER 51.0 % MILLENNIUM MCV 96.4 (H) 79.0 - CERNER 92.0 fL MILLENNIUM MCH 30.9 25.6 - CERNER 32.2 pg MILLENNIUM MCHC 32.1 32.0 - CERNER 36.5 gm/dL MILLENNIUM Platelets 218 145 - 370 CERNER x10(3)/mcL MILLENNIUM RDWSD 48.1 (H) 35.0 - CERNER 46.0 fL MILLENNIUM RDWCV 13.7 10.9 - CERNER 14.4 % MILLENNIUM MPV 9.2 9.0 - 12.0 CERNER fL MILLENNIUM Specimen Anatomical Collection Method Collection Time Receive d Time (Source) Location / / Volume Laterality Blood specimen 06/25/2013 5:55 AM 013 6:59 (specimen) EST AM EST Resulting Agency Comment Spec In Lab Ev Buckner MD HEMATOLOGY ORDERABLES Performing Organization Address City/[facility]/ZIP [place] [address] CERNER MILLENNIUM (ABNORMAL) Prealbumin (06/25/2013 5:55 AM EST) athologist Signature Prealbumin 11 (L) 20 - 40 CERNER mg/dL [facility] Comment: Prealbumin levels are generally lower in the pediatric population; adult concentrations are usually attained near puberty. Specimen Anatomical Collection Method Collection Time Receive d Time (Source) Location / / Volume Laterality Blood specimen 06/25/2013 5:55 AM 013 6:59 (specimen) EST AM EST Resulting Agency Comment Spec In Lab Ev Buckner MD CHEMISTRY ORDERABLES Performing Organization Address City/State/ZIP Code Phon e Number [address] CERNER MILLENNIUM Tacrolimus level (06/25/2013 5:55 AM EST) athologist Signature Tacrolimus Lvl 3.9 ng/mL [facility] Comment: Trough therapeutic: 5-15 ng/mL Specimen Anatomical Collection Method Collection Time Receive d Time (Source) Location / / Volume Laterality Blood specimen 06/25/2013 5:55 AM 013 8:05 (specimen) EST AM EST Resulting Agency Comment Spec In Lab Ev Buckner MD CHEMISTRY ORDERABLES Performing Organization Address City/[facility]/ZIP Code Phon e Number [address] CERNER MILLENNIUM POCT Glucose (06/25/2013 4:17 AM EST) athologist Signature POC Glucose 97 60 - 199 CERNER mg/dL [facility] Comment: Supplemental ranges: <110 mg/dL before meals <200 mg/dL all other times of the day Specimen Anatomical Collection Method Collection Time Receive d Time (Source) Location / / Volume Laterality Blood specimen 06/25/2013 4:17 AM 013 4:17 (specimen) EST AM EST Tammy Mccann MD POINT OF CARE TEST ORDERABLE S Performing Organization Address City/[facility]/ZIP Code Phon e Number [address] CERNER MILLENNIUM POCT Glucose (06/25/2013 12:26 AM EST) athologist Signature POC Glucose 117 60 - 199 CERNER mg/dL [facility] Comment: Supplemental ranges: <110 mg/dL before meals <200 mg/dL all other times of the day Specimen Anatomical Collection Method Collection Time Receive d Time (Source) Location / / Volume Laterality Blood specimen 06/25/2013 12:26 3 (specimen) AM EST 12:26 AM EST Tammy Mccann MD POINT OF CARE TEST ORDERABLE S Performing Organization Address City/State/ZIP Code Phon e Number [address] CERNER MILLENNIUM POCT Glucose (06/24/2013 8:16 PM EST) athologist Signature POC Glucose 173 60 - 199 CERNER mg/dL [facility] Comment: Supplemental ranges: <110 mg/dL before meals <200 mg/dL all other times of the day Specimen Anatomical Collection Method Collection Time Receive d Time (Source) Location / / Volume Laterality Blood specimen 06/24/2013 8:16 PM 013 8:16 (specimen) EST PM EST Tammy Mccann MD POINT OF CARE TEST ORDERABLE S Performing Organization Address City/[facility]/ZIP Code Phon e Number [address] CERNER MILLENNIUM POCT Glucose (06/24/2013 5:53 PM EST) athologist Signature POC Glucose 195 60 - 199 CERNER mg/dL [facility] Comment: Supplemental ranges: <110 mg/dL before meals <200 mg/dL all other times of the day Specimen Anatomical Collection Method Collection Time Receive d Time (Source) Location / / Volume Laterality Blood specimen 06/24/2013 5:53 PM 013 5:53 (specimen) EST PM EST Tammy Mccann MD POINT OF CARE TEST ORDERABLE S Performing Organization Address City/[facility]/ZIP Code Phon e Number [address] CERNER MILLENNIUM (ABNORMAL) POCT Glucose (06/24/2013 3:52 PM EST) athologist Signature POC Glucose 263 (H) 60 - 199 CERNER mg/dL [facility] Comment: Supplemental ranges: <110 mg/dL before meals <200 mg/dL all other times of the day Specimen Anatomical Collection Method Collection Time Receive d Time (Source) Location / / Volume Laterality Blood specimen 06/24/2013 3:52 PM 013 3:52 (specimen) EST PM EST Tammy Mccann MD POINT OF CARE TEST ORDERABLE S Performing Organization Address City/State/ZIP Code Phon e Number [address] CERNER MILLENNIUM (ABNORMAL) POCT Glucose (06/24/2013 1:08 PM EST) P athologist Signature POC Glucose 236 (H) 60 - 199 CERNER mg/dL [facility] Comment: Supplemental ranges: <110 mg/dL before meals <200 mg/dL all other times of the day Specimen Anatomical Collection Method Collection Time Receive d Time (Source) Location / / Volume Laterality Blood specimen 06/24/2013 1:08 PM 013 1:08 (specimen) EST PM EST Tammy Mccann MD POINT OF CARE TEST ORDERABLE S Performing Organization Address City/[facility]/ZIP Code Phon e Number [address] CERNER MILLENNIUM POCT Glucose (06/24/2013 12:02 PM EST) P athologist Signature POC Glucose 193 60 - 199 CERNER mg/dL [facility] Comment: Supplemental ranges: <110 mg/dL before meals <200 mg/dL all other times of the day Specimen Anatomical Collection Method Collection Time Receive d Time (Source) Location / / Volume Laterality Blood specimen 06/24/2013 12:02 3 (specimen) PM EST 12:02 PM EST Tammy Mccann MD POINT OF CARE TEST ORDERABLE S Performing Organization Address City/[facility]/ZIP Code Phon e Number [address] CERNER MILLENNIUM (ABNORMAL) CMP w/fasting Glucose (06/24/2013 8:08 AM EST) P athologist Signature Glucose 105 (H) 65 - 99 CERNER Fasting mg/dL [...] of Diabetes Mellitus, Position Statement from the [place] [employer]. ??Diabete s Care, Volume 33, Supplement 1, Jul 2009 BUN 21 (H) 10 - 20 mg/dL CERNER MILLENNIU M Creatinine 1.12 0.80 - 1.50 mg/dL CERNER MILL ENNIUM Comment: Please note that the pediatric reference intervals supplied above were not validated at [facility]. Results from pediatri c patients should be interpreted in conjunction to the patient's age, height and muscle mass. Sodium 142 135 - 145 mmol/L CERNER OMKAR NIUM Potassium 4.0 3.5 - 5.0 mmol/L CERNER [facility] NI[facility] Comment: Please note: ??Patients with WBC >100,00 0 may have falsely elevated Potassium levels. ??For accurate Potassium quantif ication in these patients send serum separator tube (gold top) for subsequent determinations. ??Contact the Clinical Chemistry Laboratory if there are any qu estions. Chloride 109 (H) 98 - 107 mmol/L CERNER MILLENN IUM CO2 22 22 - 31 mmol/L CERNER MILLENNI UM Anion Gap 11 5 - 15 mmol/L CERNER MILLENNIU M Calcium 9.6 8.5 - 10.5 mg/dL CERNER OMKAR NIUM Total Protein 7.6 6.4 - 8.3 gm/dL CERNER MIL LENNIUM Albumin 3.1 (L) 3.2 - 5.2 gm/dL CERNER MILLENN IUM AST 11 0 - 39 unit/L CERNER MILLENNIU M ALT 12 0 - 55 unit/L CERNER MILLENNIU M Alk Phos 85 40 - 120 unit/L CERNER MILLENN IUM Total Bilirubin 0.5 0.2 - 1.3 mg/dL HOLLI M ILLENNIUM Bili, Direct 0.2 0.0 - 0.3 mg/dL CERNER MILL ENNIUM Estimated GFR >60 >=60 DELLANER NELLIEIU M Comment: This estimated [...] Location / / Volume Laterality Blood specimen 06/24/2013 8:08 AM 013 8:14 (specimen) EST AM EST Resulting Agency Comment Spec In Lab Ev Buckner MD CHEMISTRY ORDERABLES Performing Organization Address City/State/ZIP Code Phon e Number [address] CERNER MILLENNIUM POCT Glucose (06/24/2013 7:46 AM EST) athologist Signature POC Glucose 98 60 - 199 CERNER mg/dL [facility] Comment: Supplemental ranges: <110 mg/dL before meals <200 mg/dL all other times of the day Specimen Anatomical Collection Method Collection Time Receive d Time (Source) Location / / Volume Laterality Blood specimen 06/24/2013 7:46 AM 013 7:46 (specimen) EST AM EST Tammy Mccann MD POINT OF CARE TEST ORDERABLE S Performing Organization Address City/[facility]/ZIP Code Phon e Number [address] CERNER MILLENNIUM POCT Glucose (06/24/2013 6:11 AM EST) athologist Signature POC Glucose 89 60 - 199 CERNER mg/dL [facility] Comment: Supplemental ranges: <110 mg/dL before meals <200 mg/dL all other times of the day Specimen Anatomical Collection Method Collection Time Receive d Time (Source) Location / / Volume Laterality Blood specimen 06/24/2013 6:11 AM 013 6:11 (specimen) EST AM EST Tammy Mccann MD POINT OF CARE TEST ORDERABLE S Performing Organization Address City/State/ZIP Code Phon e Number [address] CERNER MILLENNIUM POCT Glucose (06/24/2013 4:08 AM EST) athologist Signature POC Glucose 99 60 - 199 CERNER mg/dL [facility] Comment: Supplemental ranges: <110 mg/dL before meals <200 mg/dL all other times of the day Specimen Anatomical Collection Method Collection Time Receive d Time (Source) Location / / Volume Laterality Blood specimen 06/24/2013 4:08 AM 013 4:08 (specimen) EST AM EST Tammy Mccann MD POINT OF CARE TEST ORDERABLE S Performing Organization Address City/State/ZIP Code Phon e Number [address] CERNER MILLENNIUM Differential, Automated (06/24/2013 3:19 AM EST) athologist Signature Neutrophils % 58.6 34.0 - CERNER 71.0 % MILLENNIUM Neutr Abs (ANC) 3.12 1.50 - CERNER 6.30 MILLENNIUM x10(3)/mcL Lymphocytes % 27.3 19.0 - CERNER 53.0 % MILLENNIUM Lymphocytes Abs 1.4 1.0 - 3.6 CERNER x10(3)/mcL MILLENNIUM Monocytes % 9.2 4.0 - 13.0 CERNER % MILLENNIUM Monocyte Abs 0.5 0.2 - 1.0 CERNER x10(3)/mcL MILLENNIUM Eosinophils % 3.9 0.0 - 7.0 CERNER % MILLENNIUM Eosinophils Abs 0.2 0.0 - 0.5 CERNER x10(3)/mcL MILLENNIUM Basophils % 0.8 0.0 - 2.0 CERNER % MILLENNIUM Basophils [...] Location / / Volume Laterality Blood specimen 06/24/2013 3:19 AM 013 3:32 (specimen) EST AM EST Ev Buckner MD HEMATOLOGY ORDERABLES Performing Organization Address City/State/Z[place] [address] CERNER MILLENNIUM (ABNORMAL) CBC (with Diff) (06/24/2013 3:19 AM EST) P athologist Signature WBC 5.3 4.0 - 10.0 CERNER x10(3)/mcL MILLENNIUM RBC 3.36 (L) 4.63 - CERNER 6.08 MILLENNIUM x10(6)/mcL Hemoglobin 10.3 (L) 13.7 - CERNER 17.5 gm/dL MILLENNIUM Hematocrit 32.2 (L) 40.0 - CERNER 51.0 % MILLENNIUM MCV 95.8 (H) 79.0 - CERNER 92.0 fL MILLENNIUM MCH 30.7 25.6 - CERNER 32.2 pg MILLENNIUM MCHC 32.0 32.0 - CERNER 36.5 gm/dL MILLENNIUM Platelets 201 145 - 370 CERNER x10(3)/mcL MILLENNIUM RDWSD 46.9 (H) 35.0 - CERNER 46.0 fL MILLENNIUM RDWCV 13.6 10.9 - CERNER 14.4 % MILLENNIUM MPV 8.9 (L) 9.0 - 12.0 CERNER fL MILLENNIUM Specimen Anatomical Collection Method Collection Time Receive d Time (Source) Location / / Volume Laterality Blood specimen 06/24/2013 3:19 AM 013 3:32 (specimen) EST AM EST Resulting Agency Comment Spec In Lab Ev Buckner MD HEMATOLOGY ORDERABLES Performing Organization Address City/State/ZIP Code Phon e Number [address] CERNER MILLENNIUM POCT Glucose (06/24/2013 12:46 AM EST) athologist Signature POC Glucose 167 60 - 199 CERNER mg/dL [facility] Comment: Supplemental ranges: <110 mg/dL before meals <200 mg/dL all other times of the day Specimen Anatomical Collection Method Collection Time Receive d Time (Source) Location / / Volume Laterality Blood specimen 06/24/2013 12:46 3 (specimen) AM EST 12:46 AM EST Tammy Mccann MD POINT OF CARE TEST ORDERABLE S Performing Organization Address City/State/ZIP Code Phon e Number [address] CERNER MILLENNIUM (ABNORMAL) POCT Glucose (06/23/2013 10:23 PM EST) athologist Signature POC Glucose 249 (H) 60 - 199 CERNER mg/dL [facility] Comment: Supplemental ranges: <110 mg/dL before meals <200 mg/dL all other times of the day Specimen Anatomical Collection Method Collection Time Receive d Time (Source) Location / / Volume Laterality Blood specimen 06/23/2013 10:23 3 (specimen) PM EST 10:23 PM EST Tammy Mccann MD POINT OF CARE TEST ORDERABLE S Performing Organization Address City/[facility]/ZIP Code Phon e Number [address] CERNER MILLENNIUM (ABNORMAL) POCT Glucose (06/23/2013 8:08 PM EST) athologist Signature POC Glucose 274 (H) 60 - 199 CERNER mg/dL [facility] Comment: Supplemental ranges: <110 mg/dL before meals <200 mg/dL all other times of the day Specimen Anatomical Collection Method Collection Time Receive d Time (Source) Location / / Volume Laterality Blood specimen 06/23/2013 8:08 PM 013 8:08 (specimen) EST PM EST Tammy Mccann MD POINT OF CARE TEST ORDERABLE S Performing Organization Address City/State/ZIP Code Phon e Number [address] CERNER MILLENNIUM (ABNORMAL) POCT Glucose (06/23/2013 7:04 PM EST) P athologist Signature POC Glucose 284 (H) 60 - 199 CERNER mg/dL [facility] Comment: Supplemental ranges: <110 mg/dL before meals <200 mg/dL all other times of the day Specimen Anatomical Collection Method Collection Time Receive d Time (Source) Location / / Volume Laterality Blood specimen 06/23/2013 7:04 PM 013 7:04 (specimen) EST PM EST Tammy Mccann MD POINT OF CARE TEST ORDERABLE S Performing Organization Address City/[facility]/ZIP Code Phon e Number [address] CERNER MILLENNIUM (ABNORMAL) POCT Glucose (06/23/2013 3:51 PM EST) P athologist Signature POC Glucose 271 (H) 60 - 199 CERNER mg/dL [facility] Comment: Supplemental ranges: <110 mg/dL before meals <200 mg/dL all other times of the day Specimen Anatomical Collection Method Collection Time Receive d Time (Source) Location / / Volume Laterality Blood specimen 06/23/2013 3:51 PM 013 3:51 (specimen) EST PM EST Tammy Mccann MD POINT OF CARE TEST ORDERABLE S Performing Organization Address City/State/ZIP Code Phon e Number [address] CERNER MILLENNIUM (ABNORMAL) POCT Glucose (06/23/2013 1:27 PM EST) P athologist Signature POC Glucose 320 (H) 60 - 199 CERNER mg/dL [facility] Comment: Supplemental ranges: <110 mg/dL before meals <200 mg/dL all other times of the day Specimen Anatomical Collection Method Collection Time Receive d Time (Source) Location / / Volume Laterality Blood specimen 06/23/2013 1:27 PM 013 1:27 (specimen) EST PM EST Tammy Mccann MD POINT OF CARE TEST ORDERABLE S Performing Organization Address City/State/ZIP Code Phon e Number [address] CERNER MILLENNIUM (ABNORMAL) POCT Glucose (06/23/2013 10:33 AM EST) P athologist Signature POC Glucose 228 (H) 60 - 199 [facility]ERNER mg/dL [facility] Comment: Supplemental ranges: <110 mg/dL before meals <200 mg/dL all other times of the day Specimen Anatomical Collection Method Collection Time Receive d Time (Source) Location / / Volume Laterality Blood specimen 06/23/2013 10:33 3 (specimen) AM EST 10:33 AM EST Tammy Mccann MD POINT OF CARE TEST ORDERABLE S Performing Organization Address City/[facility]/ZIP Code Phon e Number [address] CERNER MILLENNIUM (ABNORMAL) POCT Glucose (06/23/2013 8:12 AM EST) P athologist Signature POC Glucose 257 (H) 60 - 199 CERNER mg/dL [facility] Comment: Supplemental ranges: <110 mg/dL before meals <200 mg/dL all other times of the day Specimen Anatomical Collection Method Collection Time Receive d Time (Source) Location / / Volume Laterality Blood specimen 06/23/2013 8:12 AM 013 8:12 (specimen) EST AM EST Tammy Mccann MD POINT OF CARE TEST ORDERABLE S Performing Organization Address City/State/ZIP Code Phon e Number [address] CERNER MILLENNIUM (ABNORMAL) POCT Glucose (06/23/2013 6:25 AM EST) P athologist Signature POC Glucose 221 (H) 60 - 199 CERNER mg/dL [facility] Comment: Supplemental ranges: <110 mg/dL before meals <200 mg/dL all other times of the day Specimen Anatomical Collection Method Collection Time Receive d Time (Source) Location / / Volume Laterality Blood specimen 06/23/2013 6:25 AM 013 6:25 (specimen) EST AM EST Tammy Mccann MD POINT OF CARE TEST ORDERABLE S Performing Organization Address City/State/ZIP Code Phon e Number [place] [id number] CERNER MILLENNIUM Differential, Automated (06/23/2013 6:08 AM EST) P athologist Signature Neutrophils % 63.4 34.0 - CERNER 71.0 % MILLENNIUM Neutr Abs (ANC) 3.47 1.50 - CERNER 6.30 MILLENNIUM x10(3)/mcL Lymphocytes % 21.5 19.0 - CERNER 53.0 % MILLENNIUM Lymphocytes Abs 1.2 1.0 - 3.6 CERNER x10(3)/mcL MILLENNIUM Monocytes % 8.9 4.0 - 13.0 CERNER % MILLENNIUM Monocyte Abs 0.5 0.2 - 1.0 CERNER x10(3)/mcL MILLENNIUM Eosinophils % 5.1 0.0 - 7.0 CERNER % MILLENNIUM Eosinophils Abs 0.3 0.0 - 0.5 CERNER x10(3)/mcL MILLENNIUM Basophils % 0.9 0.0 - 2.0 CERNER % MILLENNIUM Basophils [...] Location / / Volume Laterality Blood specimen 06/23/2013 6:08 AM 013 6:23 (specimen) EST AM EST Ev Buckner MD HEMATOLOGY ORDERABLES Performing Organization Address City/[facility] [place] [address] CERNER MILLENNIUM (ABNORMAL) CBC (with Diff) (06/23/2013 6:08 AM EST) P athologist Signature WBC 5.5 4.0 - 10.0 CERNER x10(3)/mcL MILLENNIUM RBC 3.36 (L) 4.63 - CERNER 6.08 MILLENNIUM x10(6)/mcL Hemoglobin 10.2 (L) 13.7 - CERNER 17.5 gm/dL MILLENNIUM Hematocrit 32.1 (L) 40.0 - CERNER 51.0 % MILLENNIUM MCV 95.5 (H) 79.0 - CERNER 92.0 fL MILLENNIUM MCH 30.4 25.6 - CERNER 32.2 pg MILLENNIUM MCHC 31.8 (L) 32.0 - CERNER 36.5 gm/dL MILLENNIUM Platelets 184 145 - 370 CERNER x10(3)/mcL MILLENNIUM RDWSD 47.1 (H) 35.0 - CERNER 46.0 fL MILLENNIUM RDWCV 13.6 10.9 - CERNER 14.4 % MILLENNIUM MPV 8.8 (L) 9.0 - 12.0 CERNER fL MILLENNIUM Specimen Anatomical Collection Method Collection Time Receive d Time (Source) Location / / Volume Laterality Blood specimen 06/23/2013 6:08 AM 013 6:23 (specimen) EST AM EST Resulting Agency Comment Spec In Lab Ev Buckner MD HEMATOLOGY ORDERABLES Performing Organization Address City/[facility]/ZIP [place] [address] CERNER MILLENNIUM (ABNORMAL) CMP w/fasting Glucose (06/23/2013 6:08 AM EST) P athologist Signature Glucose 234 (H) 65 - 99 CERNER Fasting mg/dL [...] of Diabetes Mellitus, Position Statement from the [place] [employer]. ??Diabete s Care, Volume 33, Supplement 1, Jul 2009 BUN 24 (H) 10 - 20 mg/dL CERNER MILLENNIU M Creatinine 1.15 0.80 - 1.50 mg/dL CERNER MILL ENNIUM Comment: Please note that the pediatric reference intervals supplied above were not validated at [facility]. Results from pediatri c patients should be interpreted in conjunction to the patient's age, height and muscle mass. Sodium 142 135 - 145 mmol/L CERNER OMKAR NIUM Potassium 3.7 3.5 - 5.0 mmol/L CERNER OMKAR NIUM Comment: Please note: ??Patients with WBC >100,00 0 may have falsely elevated Potassium levels. ??For accurate Potassium quantif ication in these patients send serum separator tube (gold top) for subsequent determinations. ??Contact the Clinical Chemistry Laboratory if there are any qu estions. Chloride 110 (H) 98 - 107 mmol/L CERNER MILLENN IUM CO2 22 22 - 31 mmol/L CERNER MILLENNI UM Anion Gap 10 5 - 15 mmol/L CERNER MILLENNIU M Calcium 9.4 8.5 - 10.5 mg/dL CERNER OMKAR NIUM Total Protein 7.3 6.4 - 8.3 gm/dL CERNER MIL LENNIUM Albumin 2.9 (L) 3.2 - 5.2 gm/dL CERNER MILLENN IUM AST 13 0 - 39 unit/L CERNER MILLENNIU M ALT 15 0 - 55 unit/L CERNER MILLENNIU M Alk Phos 94 40 - 120 unit/L HOLLI BALLARD IUM Total Bilirubin 0.4 0.2 - 1.3 mg/dL HOLLI Ramirez ILLENNIUM Bili, Direct 0.2 0.0 - 0.3 mg/dL HOLLI COLE ENNIUM Estimated GFR >60 >=60 HOLLI IVEYU M Comment: This estimated GFR (eGFR) value [...] Location / / Volume Laterality Blood specimen 06/23/2013 6:08 AM 013 6:23 (specimen) EST AM EST Resulting Agency Comment Spec In Lab Ev Buckner MD CHEMISTRY ORDERABLES Performing Organization Address City/State/ZIP Code Phon e Number [address] [facility] (ABNORMAL) POCT Glucose (06/23/2013 3:51 AM EST) athologist Signature POC Glucose 268 (H) 60 - 199 CERNER mg/dL [facility] Comment: Supplemental ranges: <110 mg/dL before meals <200 mg/dL all other times of the day Specimen Anatomical Collection Method Collection Time Receive d Time (Source) Location / / Volume Laterality Blood specimen 06/23/2013 3:51 AM 013 3:51 (specimen) EST AM EST Tammy Mccann MD POINT OF CARE TEST ORDERABLE S Performing Organization Address City/State/ZIP Code Phon e Number [address] [facility] POCT Glucose (06/23/2013 2:11 AM EST) athologist Signature POC Glucose 291 (H) 60 - 199 CERNER mg/dL [facility] Comment: Supplemental ranges: <110 mg/dL before meals <200 mg/dL all other times of the day Specimen Anatomical Collection Method Collection Time Receive d Time (Source) Location / / Volume Laterality Blood specimen 06/23/2013 2:11 AM 013 2:11 (specimen) EST AM EST Tammy Mccann MD POINT OF CARE TEST ORDERABLE S Performing Organization Address City/State/[place] [address] CERNER MILLENNIUM (ABNORMAL) POCT Glucose (06/23/2013 12:07 AM EST) athologist Signature POC Glucose 314 (H) 60 - 199 CERNER mg/dL MILLENNIUM Comment: Supplemental ranges: <110 mg/dL before meals <200 mg/dL all other times of the day Specimen Anatomical Collection Method Collection Time Receive d Time (Source) Location / / Volume Laterality Blood specimen 06/23/2013 12:07 3 (specimen) AM EST 12:07 AM EST Tammy Mccann MD POINT OF CARE TEST ORDERABLE S Performing Organization Address City/[facility]/ZIP Code Phon e Number [address] CERNER MILLENNIUM (ABNORMAL) POCT Glucose (06/22/2013 10:08 PM EST) athologist Signature POC Glucose 325 (H) 60 - 199 CERNER mg/dL MILLENNIUM Comment: Supplemental ranges: <110 mg/dL before meals <200 mg/dL all other times of the day Specimen Anatomical Collection Method Collection Time Receive d Time (Source) Location / / Volume Laterality Blood specimen 06/22/2013 10:08 3 (specimen) PM EST 10:08 PM EST Tammy Mccann MD POINT OF CARE TEST ORDERABLE S Performing Organization Address City/State/[place] [address] CERNER MILLENNIUM (ABNORMAL) POCT Glucose (06/22/2013 7:56 PM EST) athologist Signature POC Glucose 264 (H) 60 - 199 CERNER mg/dL MILLENNIUM Comment: Supplemental ranges: <110 mg/dL before meals <200 mg/dL all other times of the day Specimen Anatomical Collection Method Collection Time Receive d Time (Source) Location / / Volume Laterality Blood specimen 06/22/2013 7:56 PM 013 7:56 (specimen) EST PM EST Tammy Mccann MD POINT OF CARE TEST ORDERABLE S Performing Organization Address City/State/ZIP Code Phon e Number [address] CERNER MILLENNIUM (ABNORMAL) POCT Glucose (06/22/2013 4:38 PM EST) athologist Signature POC Glucose 212 (H) 60 - 199 CERNER mg/dL MILLENNIUM Comment: Supplemental ranges: <110 mg/dL before meals <200 mg/dL all other times of the day Specimen Anatomical Collection Method Collection Time Receive d Time (Source) Location / / Volume Laterality Blood specimen 06/22/2013 4:38 PM 013 4:38 (specimen) EST PM EST Tammy Mccann MD POINT OF CARE TEST ORDERABLE S Performing Organization Address City/[facility]/[place]IP [place] [address] CERNER MILLENNIUM POCT Glucose (06/22/2013 3:29 PM EST) athologist Signature POC Glucose 182 60 - 199 CERNER mg/dL MILLENNIUM Comment: Supplemental ranges: <110 mg/dL before meals <200 mg/dL all other times of the day Specimen Anatomical Collection Method Collection Time Receive d Time (Source) Location / / Volume Laterality Blood specimen 06/22/2013 3:29 PM 013 3:29 (specimen) EST PM EST Tammy Mccann MD POINT OF CARE TEST ORDERABLE S Performing Organization Address City/[facility]/ZIP [place] [address] CERNER MILLENNIUM POCT Glucose (06/22/2013 2:29 PM EST) athologist Signature POC Glucose 178 60 - 199 CERNER mg/dL [facility] Comment: Supplemental ranges: <110 mg/dL before meals <200 mg/dL all other times of the day Specimen Anatomical Collection Method Collection Time Receive d Time (Source) Location / / Volume Laterality Blood specimen 06/22/2013 2:29 PM 013 2:29 (specimen) EST PM EST Tammy Mccann MD POINT OF CARE TEST ORDERABLE S Performing Organization Address City/State/ZIP Code Phon e Number [address] CERNER MILLENNIUM POCT Glucose (06/22/2013 1:20 PM EST) athologist Signature POC Glucose 187 60 - 199 CERNER mg/dL [facility] Comment: Supplemental ranges: <110 mg/dL before meals <200 mg/dL all other times of the day Specimen Anatomical Collection Method Collection Time Receive d Time (Source) Location / / Volume Laterality Blood specimen 06/22/2013 1:20 PM 013 1:20 (specimen) EST PM EST Tammy Mccann MD POINT OF CARE TEST ORDERABLE S Performing Organization Address City/[facility]/ZIP Code Phon e Number [address] CERNER MILLENNIUM POCT Glucose (06/22/2013 12:24 PM EST) athologist Signature POC Glucose 180 60 - 199 CERNER mg/dL [facility] Comment: Supplemental ranges: <110 mg/dL before meals <200 mg/dL all other times of the day Specimen Anatomical Collection Method Collection Time Receive d Time (Source) Location / / Volume Laterality Blood specimen 06/22/2013 12:24 3 (specimen) PM EST 12:24 PM EST Tammy Mccann MD POINT OF CARE TEST ORDERABLE S Performing Organization Address City/[facility]/ZIP Code Phon e Number [address] CERNER MILLENNIUM POCT Glucose (06/22/2013 11:40 AM EST) athologist Signature POC Glucose 171 60 - 199 CERNER mg/dL MILLENNIUM Comment: Supplemental ranges: <110 mg/dL before meals <200 mg/dL all other times of the day Specimen Anatomical Collection Method Collection Time Receive d Time (Source) Location / / Volume Laterality Blood specimen 06/22/2013 11:40 3 (specimen) AM EST 11:40 AM EST Tammy Mccann MD POINT OF CARE TEST ORDERABLE S Performing Organization Address [facility] [place] [address] [facility] [facility] [address] MILLENNIUM POCT Glucose (06/22/2013 10:25 AM EST) athologist Signature POC Glucose 172 60 - 199 CERNER mg/dL MILLENNIUM Comment: Supplemental ranges: <110 mg/dL before meals <200 mg/dL all other times of the day Specimen Anatomical Collection Method Collection Time Receive d Time (Source) Location / / Volume Laterality Blood specimen 06/22/2013 10:25 3 (specimen) AM EST 10:25 AM EST Tammy Mccann MD POINT OF CARE TEST ORDERABLE S Performing Organization Address [facility] Phon e Number [address] [facility] MILLENNIUM Vancomycin, trough (06/22/2013 10:20 AM EST) athologist Signature Vanc Trough 21.7 mg/L [facility] Comment: Therapeutic range for complicated infect ions such as bacteremia, endocarditis, osteomyelitis, meningitis, and hospital- acquired pneumonia caused by S. aureus: 15-20 mg/L Therapeutic range for other indications: 10-15 mg/L Toxic: >25 mg/L Reference: Vancomycin Therapeutic Monitoring: Revie w and Recommendations from the ASHP, IDSA and SIDP Task Force. ??Am J Health- Syst Pharm. 2009; 66:82-98 Specimen Anatomical Collection Method Collection Time Receive d Time (Source) Location / / Volume Laterality Blood specimen 06/22/2013 10:20 3 (specimen) AM EST 10:33 AM EST Resulting Agency Comment Spec In Lab Ev Buckner MD CHEMISTRY ORDERABLES Performing Organization Address City/State/ZIP Code Phon e Number [address] CERNER MILLENNIUM POCT Glucose (06/22/2013 9:09 AM EST) athologist Signature POC Glucose 166 60 - 199 CERNER mg/dL MILLENNIUM Comment: Supplemental ranges: <110 mg/dL before meals <200 mg/dL all other times of the day Specimen Anatomical Collection Method Collection Time Receive d Time (Source) Location / / Volume Laterality Blood specimen 06/22/2013 9:09 AM 013 9:09 (specimen) EST AM EST Tammy Mccann MD POINT OF CARE TEST ORDERABLE S Performing Organization Address City/[facility]/ZIP Code Phon e Number [address] CERNER MILLENNIUM POCT Glucose (06/22/2013 7:39 AM EST) athologist Signature POC Glucose 157 60 - 199 CERNER mg/dL MILLENNIUM Comment: Supplemental ranges: <110 mg/dL before meals <200 mg/dL all other times of the day Specimen Anatomical Collection Method Collection Time Receive d Time (Source) Location / / Volume Laterality Blood specimen 06/22/2013 7:39 AM 013 7:39 (specimen) EST AM EST Tammy Mccann MD POINT OF CARE TEST ORDERABLE S Performing Organization Address City/[facility]/ZIP [place] [address] CERNER MILLENNIUM POCT Glucose (06/22/2013 6:18 AM EST) athologist Signature POC Glucose 173 60 - 199 CERNER mg/dL MILLENNIUM Comment: Supplemental ranges: <110 mg/dL before meals <200 mg/dL all other times of the day Specimen Anatomical Collection Method Collection Time Receive d Time (Source) Location / / Volume Laterality Blood specimen 06/22/2013 6:18 AM 013 6:18 (specimen) EST AM EST Tammy Mccann MD POINT OF CARE TEST ORDERABLE S Performing Organization Address City/State/ZIP Code Phon e Number [address] [facility] MILLENNIUM POCT Glucose (06/22/2013 5:09 AM EST) athologist Signature POC Glucose 166 60 - 199 CERNER mg/dL [facility] Comment: Supplemental ranges: <110 mg/dL before meals <200 mg/dL all other times of the day Specimen Anatomical Collection Method Collection Time Receive d Time (Source) Location / / Volume Laterality Blood specimen 06/22/2013 5:09 AM 013 5:09 (specimen) EST AM EST Tammy Mccann MD POINT OF CARE TEST ORDERABLE S Performing Organization Address City/State/ZIP Code Phon e Number [address] [facility] MILLENNIUM POCT Glucose (06/22/2013 4:32 AM EST) athologist Signature POC Glucose 186 60 - 199 CERNER mg/dL [facility] Comment: Supplemental ranges: <110 mg/dL before meals <200 mg/dL all other times of the day Specimen Anatomical Collection Method Collection Time Receive d Time (Source) Location / / Volume Laterality Blood specimen 06/22/2013 4:32 AM 013 4:32 (specimen) EST AM EST Tammy Mccann MD POINT OF CARE TEST ORDERABLE S Performing Organization Address City/State/ZIP Code Phon e Number [address] [facility] MILLENNIUM Antibody screen (06/22/2013 4:00 AM EST) Analysis Performed At Patho logist Time Signature Ab Screen Negative [facility] Interp MILLENNIUM Expires at [id number] CERNER [id number] on: MILLENNIUM Specimen Anatomical Collection Method Collection Time Receive d Time (Source) Location / / Volume Laterality Blood specimen 06/22/2013 4:00 AM 013 4:26 (specimen) EST AM EST Resulting Agency Comment Spec In Lab Ev Buckner MD BLOOD BANK ORDERABLES Performing Organization Address City/State/ZIP [place] [address] CERNER MILLENNIUM ABO/Rh Typing (06/22/2013 4:00 AM EST) athologist Signature ABORh Type O Pos CERNER MILLENNIUM Specimen Anatomical Collection Method Collection Time Receive d Time (Source) Location / / Volume Laterality Blood specimen 06/22/2013 4:00 AM 013 4:26 (specimen) EST AM EST Resulting Agency Comment Spec In Lab Ev Buckner MD BLOOD BANK ORDERABLES Performing Organization Address City/State/ZIP [place] [address] [facility] [address] CERNER MILLENNIUM Differential, Automated (06/22/2013 4:00 AM EST) athologist Signature Neutrophils % 67.7 34.0 - CERNER 71.0 % MILLENNIUM Neutr Abs (ANC) 3.98 1.50 - CERNER 6.30 MILLENNIUM x10(3)/mcL Lymphocytes % 19.0 19.0 - CERNER 53.0 % MILLENNIUM Lymphocytes Abs 1.1 1.0 - 3.6 CERNER x10(3)/mcL MILLENNIUM Monocytes % 8.3 4.0 - 13.0 CERNER % MILLENNIUM Monocyte Abs 0.5 0.2 - 1.0 CERNER x10(3)/mcL MILLENNIUM Eosinophils % 4.2 0.0 - 7.0 CERNER % MILLENNIUM Eosinophils Abs 0.2 0.0 - 0.5 CERNER x10(3)/mcL MILLENNIUM Basophils % 0.5 0.0 - 2.0 CERNER % MILLENNIUM Basophils Abs 0.0 0.0 - 0.2 CERNER x10(3)/mcL MILLENNIUM Immature Gran % 0.30 0.00 - CERNER 0.66 % MILLENNIUM Comment: Immature granulocytes(IG's)percentage an d absolute count will include metamyelocytes, myelocytes, and promyelo cytes. Blood smears from CBCs yielding IG's will be scanned manually for concor dance. If this scan disagrees with the automated IG or if promyelocytes are not ed, a manual differential will be performed. Courtney Gran Abs 0.02 0.00 - 0.05 x10(3)/mcL CER NER MILLENNIUM Specimen Anatomical Collection Method Collection Time Receive d Time (Source) Location / / Volume Laterality Blood specimen 06/22/2013 4:00 AM 013 4:10 (specimen) EST AM EST Ev Buckner MD HEMATOLOGY ORDERABLES Performing Organization Address City/State/ZIP Code Phon e Number [place] [phone] CERNER MILLENNIUM (ABNORMAL) Basic Metabolic Panel (non-fasting) (06/22/2013 4:00 AM EST) P athologist Signature Glucose Lvl 169 60 - 199 CERNER mg/dL MILLENNIUM Comment: Diabetes: >=200 mg/dL plus symp toms BUN 24 (H) 10 - 20 mg/dL CERNER MILLENNIU M Creatinine 1.15 0.80 - 1.50 mg/dL CERNER MILL ENNIUM Comment: Please note that the pediatric reference intervals supplied above were not validated at [facility]. Results from pediatri c patients should be interpreted in conjunction to the patient's age, height and muscle mass. Sodium 141 135 - 145 mmol/L CERNER OMKAR NIUM Potassium 3.9 3.5 - 5.0 mmol/L CERNER OMKAR NIUM Comment: Please note: ??Patients with WBC >100,00 0 may have falsely elevated Potassium levels. ??For accurate Potassium quantif ication in these patients send serum separator tube (gold top) for subsequent determinations. ??Contact the Clinical Chemistry Laboratory if there are any qu estions. Chloride 110 (H) 98 - 107 mmol/L CERNER MILLENN IUM CO2 22 22 - 31 mmol/L CERNER MILLENNI UM Anion Gap 9 5 - 15 mmol/L CERNER MILLENNIU M Calcium 9.2 8.5 - 10.5 mg/dL CERNER OMKAR NIUM Estimated GFR >60 >=60 CERNER MILLENNIU M Comment: This estimated [...] Location / / Volume Laterality Blood specimen 06/22/2013 4:00 AM 013 4:10 (specimen) EST AM EST Resulting Agency Comment Spec In Lab Ev Buckner MD CHEMISTRY ORDERABLES Performing Organization Address City/[facility] Phon e Number [place] [phone] CERNER MILLENNIUM (ABNORMAL) CBC (with Diff) (06/22/2013 4:00 AM EST) P athologist Signature WBC 5.9 4.0 - 10.0 CERNER x10(3)/mcL MILLENNIUM RBC 3.30 (L) 4.63 - CERNER 6.08 MILLENNIUM x10(6)/mcL Hemoglobin 10.2 (L) 13.7 - CERNER 17.5 gm/dL MILLENNIUM Hematocrit 31.6 (L) 40.0 - CERNER 51.0 % MILLENNIUM MCV 95.8 (H) 79.0 - CERNER 92.0 fL MILLENNIUM MCH 30.9 25.6 - CERNER 32.2 pg MILLENNIUM MCHC 32.3 32.0 - CERNER 36.5 gm/dL MILLENNIUM Platelets 165 145 - 370 CERNER x10(3)/mcL MILLENNIUM RDWSD 48.0 (H) 35.0 - CERNER 46.0 fL MILLENNIUM RDWCV 13.8 10.9 - CERNER 14.4 % MILLENNIUM MPV 9.0 9.0 - 12.0 CERNER fL MILLENNIUM Specimen Anatomical Collection Method Collection Time Receive d Time (Source) Location / / Volume Laterality Blood specimen 06/22/2013 4:00 AM 013 4:10 (specimen) EST AM EST Resulting Agency Comment Spec In Lab Ev Buckner MD HEMATOLOGY ORDERABLES Performing Organization Address City/[facility]/ZIP Code [place] [address] CERNER MILLENNIUM POCT Glucose (06/22/2013 3:07 AM EST) athologist Signature POC Glucose 151 60 - 199 CERNER mg/dL MILLENNIUM Comment: Supplemental ranges: <110 mg/dL before meals <200 mg/dL all other times of the day Specimen Anatomical Collection Method Collection Time Receive d Time (Source) Location / / Volume Laterality Blood specimen 06/22/2013 3:07 AM 013 3:07 (specimen) EST AM EST Tammy Mccann MD POINT OF CARE TEST ORDERABLE S Performing Organization Address City/State/ZIP [place] [address] CERNER MILLENNIUM POCT Glucose (06/22/2013 1:57 AM EST) athologist Signature POC Glucose 165 60 - 199 CERNER mg/dL MILLENNIUM Comment: Supplemental ranges: <110 mg/dL before meals <200 mg/dL all other times of the day Specimen Anatomical Collection Method Collection Time Receive d Time (Source) Location / / Volume Laterality Blood specimen 06/22/2013 1:57 AM 013 1:57 (specimen) EST AM EST Tammy Mccann MD POINT OF CARE TEST ORDERABLE S Performing Organization Address City/State/ZIP [place] [address] CERNER MILLENNIUM POCT Glucose (06/22/2013 1:28 AM EST) athologist Signature POC Glucose 169 60 - 199 CERNER mg/dL MILLENNIUM Comment: Supplemental ranges: <110 mg/dL before meals <200 mg/dL all other times of the day Specimen Anatomical Collection Method Collection Time Receive d Time (Source) Location / / Volume Laterality Blood specimen 06/22/2013 1:28 AM 013 1:28 (specimen) EST AM EST Tammy Mccann MD POINT OF CARE TEST ORDERABLE S Performing Organization Address City/State/ZIP [place] [address] CERNER MILLENNIUM POCT Glucose (06/21/2013 11:50 PM EST) athologist Signature POC Glucose 189 60 - 199 CERNER mg/dL [facility] Comment: Supplemental ranges: <110 mg/dL before meals <200 mg/dL all other times of the day Specimen Anatomical Collection Method Collection Time Receive d Time (Source) Location / / Volume Laterality Blood specimen 06/21/2013 11:50 3 (specimen) PM EST 11:50 PM EST Tammy Mccann MD POINT OF CARE TEST ORDERABLE S Performing Organization Address City/State/ZIP Code Phon e Number [address] CERNER MILLENNIUM (ABNORMAL) POCT Glucose (06/21/2013 10:05 PM EST) athologist Signature POC Glucose 219 (H) 60 - 199 CERNER mg/dL [facility] Comment: Supplemental ranges: <110 mg/dL before meals <200 mg/dL all other times of the day Specimen Anatomical Collection Method Collection Time Receive d Time (Source) Location / / Volume Laterality Blood specimen 06/21/2013 10:05 3 (specimen) PM EST 10:05 PM EST Tammy Mccann MD POINT OF CARE TEST ORDERABLE S Performing Organization Address City/State/ZIP Code Phon e Number [address] [facility] (ABNORMAL) POCT Glucose (06/21/2013 9:19 PM EST) athologist Signature POC Glucose 267 (H) 60 - 199 CERNER mg/dL [facility] Comment: Supplemental ranges: <110 mg/dL before meals <200 mg/dL all other times of the day Specimen Anatomical Collection Method Collection Time Receive d Time (Source) Location / / Volume Laterality Blood specimen 06/21/2013 9:19 PM 013 9:19 (specimen) EST PM EST Tammy Mccann MD POINT OF CARE TEST ORDERABLE S Performing Organization Address City/State/ZIP [place] [address] CERNER MILLENNIUM (ABNORMAL) POCT Glucose (06/21/2013 8:01 PM EST) athologist Signature POC Glucose 243 (H) 60 - 199 CERNER mg/dL MILLENNIUM Comment: Supplemental ranges: <110 mg/dL before meals <200 mg/dL all other times of the day Specimen Anatomical Collection Method Collection Time Receive d Time (Source) Location / / Volume Laterality Blood specimen 06/21/2013 8:01 PM 013 8:01 (specimen) EST PM EST Tammy Mccann MD POINT OF CARE TEST ORDERABLE S Performing Organization Address City/State/ZIP Code Phon e Number [address] CERNER MILLENNIUM (ABNORMAL) POCT Glucose (06/21/2013 5:47 PM EST) athologist Signature POC Glucose 286 (H) 60 - 199 CERNER mg/dL [facility] Comment: Supplemental ranges: <110 mg/dL before meals <200 mg/dL all other times of the day Specimen Anatomical Collection Method Collection Time Receive d Time (Source) Location / / Volume Laterality Blood specimen 06/21/2013 5:47 PM 013 5:47 (specimen) EST PM EST Tammy Mccann MD POINT OF CARE TEST ORDERABLE S Performing Organization Address City/State/ZIP Code Phon e Number [address] CERNER MILLENNIUM (ABNORMAL) POCT Glucose (06/21/2013 4:49 PM EST) athologist Signature POC Glucose 299 (H) 60 - 199 CERNER mg/dL [facility] Comment: Supplemental ranges: <110 mg/dL before meals <200 mg/dL all other times of the day Specimen Anatomical Collection Method Collection Time Receive d Time (Source) Location / / Volume Laterality Blood specimen 06/21/2013 4:49 PM 013 4:49 (specimen) EST PM EST Tammy Mccann MD POINT OF CARE TEST ORDERABLE S Performing Organization Address City/State/ZIP Code Phon e Number [place] [phone] CERNER MILLENNIUM (ABNORMAL) POCT Glucose (06/21/2013 2:30 PM EST) P athologist Signature POC Glucose 257 (H) 60 - 199 CERNER mg/dL [facility] Comment: Supplemental ranges: <110 mg/dL before meals <200 mg/dL all other times of the day Specimen Anatomical Collection Method Collection Time Receive d Time (Source) Location / / Volume Laterality Blood specimen 06/21/2013 2:30 PM 013 2:30 (specimen) EST PM EST Tammy Mccann MD POINT OF CARE TEST ORDERABLE S Performing Organization Address City/State/ZIP Code Phon e Number [place] [address] CERNER Undo SoftwareENNIUM XR chest PA or AP- 1 view (06/21/2013 2:10 PM EST) Anatomical Region Laterality Modality Chest N/A Radiographic Imaging Specimen (Source) Anatomical Collection Method Collection Time Re ceived Time Location / / Volume Laterality 06/21/2013 2:10 PM EST Narrative 06/21/2013 2:12 PM EST Examination CHEST AP/XPORT Clinical History PiCC placement Comparison 06/13/2013 Technique Single AP portable view of the chest was obtained at 20 degrees upright Findings There has been interval repositioning of the right-sided PICC catheter with tip terminating in the SVC. An enteric tube is seen in the midline, though the distal portion tip are not well visualiz ed. ??Heart and mediastinal contours are unchanged. There are persistent bibasila r opacities, similar to the prior study from the same day. The lateral aspect of the left hemithorax is not entirely excluded on this radiograph. ?? Impression PICC catheter not terminating in the SVC . Procedure Note Shandra Sears MD - 06/21/2013 Examination CHEST AP/XPORT Clinical History PiCC placement Comparison 06/13/2013 Technique Single AP portable view of the chest was obtained at 20 degrees upright Findings There has been interval repositioning of the right-sided PICC catheter with tip terminating in the SVC. An enteric tube is seen in the midline, though the distal portion tip are not well visualiz ed. Heart and mediastinal contours are unchanged. There are persistent bibasila r opacities, similar to the prior study from the same day. The lateral aspect of the left hemithorax is not entirely excluded on this radiograph. Impression PICC catheter not terminating in the SVC . Ev Buckner MD IMG DX ORDERABLES (ABNORMAL) Urinalysis with microscopic (06/21/2013 12:01 PM EST) [facility] Method Time Signature Glucose UA 300 (A) Negative CERNER mg/dL MILLENNIUM Protein UA 30 (A) Neg mg/dL CERNER MILLENNIUM Bilirubin UA Negative Negative CERNER mg/dL MILLENNIUM Comment: Clinical correlation required for positi ve Urine Bilirubin results as false positive may occur with some drugs and d rug related products. If a false positive is suspected a serum total bili reyna should be considered if clinically indicated. Urobilinogen UA Normal mg/dL CERNER MILLENN IUM pH UA 6.0 5.0 - 8.0 CERNER MILLENNIUM Blood UA Small (A) Neg CERNER MILLENNIUM Ketones UA 40 (A) Neg mg/dL CERNER MILLENNIUM Nitrite UA Negative CERNER MILLENNIUM Leukocytes UA Negative mcL CERNER MILLENNIU M Appearance UA Clear Clear CERNER MILLENNIU M Spec Jennings UA 1.011 1.002 - 1.030 CERNER MIL LENNIUM Color UA Yellow Yellow CERNER MILLENNIUM RBC UA 3 0 - 3 /HPF CERNER MILLENNIUM WBC UA 3 0 - 3 /HPF CERNER MILLENNIUM Specimen Anatomical Collection Method Collection Time Receive d Time (Source) Location / / Volume Laterality Urine specimen 06/21/2013 12:01 3 1:14 (specimen) PM EST PM EST Resulting Agency Comment Spec In Lab Ev Buckner MD URINE ORDERABLES Performing Organization Address City/State/[place] [address] CERNER MILLENNIUM Urine culture Indwelling Catheter Urine (06/21/2013 12:00 PM EST) [facility] Method Time Signature Urine Culture CERNER ? Patient Name: LEROY DAILEY ?Ordered By: EV BUCKNER ? MR#: [id number] ?LOC: ??ICUS ? /Sex: ??1955 (58 years), ? Male ? PROCEDURE: Urine Culture ?SOURCE: U CC ? COLLECTED: 06/21/2013 12:00 ? STARTED: 06/21/2013 13:35 ? FINAL REPORT ? Final Report ? Verified:06/22/2013 08:20 ? No growth (Less than 1,000 cfu/ml). ? Specimen (Source) Anatomical Collection Method Collection Time Re ceived Time Location / / Volume Laterality Urine specimen 06/21/2013 12:00 3 1:35 obtained by clean PM EST PM EST catch procedure (specimen) Resulting Agency Comment Spec In Lab Ev Buckner MD MICROBIOLOGY - GENERAL ORDER STEPHANIE Performing Organization Address City/State/ZIP [place] [address] CERNER MILLENNIUM (ABNORMAL) POCT Glucose (06/21/2013 11:34 AM EST) P athologist Signature POC Glucose 251 (H) 60 - 199 CERNER mg/dL MILLENNIUM Comment: Supplemental ranges: <110 mg/dL before meals <200 mg/dL all other times of the day Specimen Anatomical Collection Method Collection Time Receive d Time (Source) Location / / Volume Laterality Blood specimen 06/21/2013 11:34 3 (specimen) AM EST 11:34 AM EST Tammy Mccann MD POINT OF CARE TEST ORDERABLE S Performing Organization Address City/State/ZIP Code Phon e Number [place] [phone] HOLLI [employer]NIUM XR chest PA or AP- 1 view (06/21/2013 11:23 AM EST) Anatomical Region Laterality Modality Chest N/A Radiographic Imaging Specimen (Source) Anatomical Collection Method Collection Time Re ceived Time Location / / Volume Laterality 06/21/2013 11:23 AM EST Narrative 06/21/2013 12:07 PM EST Examination CHEST AP/XPORT Clinical History please evaluate for infiltrate Comparison 06/18/2013, chest CT 06/17/2013. Technique Findings Persistent right perihilar and bibasilar opacities consistent with known nonspecific consolidations described on the CT scan 06/17/2013 are again seen; consider mass, scar, atelectasis and/or pneumonia. ??Small bilateral pleural effusions again seen. The central pulmon tiffany vessels appear prominent consistent with central pulmonary vascular congesti on. The right PICC line tip appears changed in position, now approximately 6 cm nferior to the rubi. Impression Persistent right perihilar and bibasilar opacities, consistent with known pulmonary consolidations described on th e CT scan 06/17/2013. ??Mild central pulmonary vascular congestion. ??No pneu mothorax. ??Right PICC line tip has changed since 06/18/13 and now overlies right atrium approximately 6-7 cm inferior to the rubi. Findings discuss ed with patient's nurse at time of dictation. Procedure Note Yasmin Winston MD - 3 Examination CHEST AP/XPORT Clinical History please evaluate for infiltrate Comparison 06/18/2013, chest CT 06/17/2013. Technique Findings Persistent right perihilar and bibasilar opacities consistent with known nonspecific consolidations described on the CT scan 06/17/2013 are again seen; consider mass, scar, atelectasis and/or pneumonia. Small bilateral pleural effusions again seen. The central pulmon tiffany vessels appear prominent consistent with central pulmonary vascular congesti on. The right PICC line tip appears changed in position, now approximately 6 cm nferior to the rubi. Impression Persistent right perihilar and bibasilar opacities, consistent with known pulmonary consolidations described on e CT scan 06/17/2013. Mild central pulmonary vascular congestion. No pneumo thorax. Right PICC line tip has changed since 06/18/13 and now overlies right atrium approximately 6-7 cm inferior to the rubi. Findings discuss ed with patient's nurse at time of dictation. Ev Buckner MD IMG DX ORDERABLES (ABNORMAL) POCT Glucose (06/21/2013 7:55 AM EST) athologist Signature POC Glucose 239 (H) 60 - 199 CERNER mg/dL [facility] Comment: Supplemental ranges: <110 mg/dL before meals <200 mg/dL all other times of the day Specimen Anatomical Collection Method Collection Time Receive d Time (Source) Location / / Volume Laterality Blood specimen 06/21/2013 7:55 AM 013 7:55 (specimen) EST AM EST Tammy Mccann MD POINT OF CARE TEST ORDERABLE S Performing Organization Address City/State/Z[place] [address] [facility] [address] MILLENNIUM Tacrolimus level (06/21/2013 7:50 AM EST) athologist Signature Tacrolimus Lvl 3.4 ng/mL CERNER MILLENNIUM Comment: Trough therapeutic: 5-15 ng/mL Specimen Anatomical Collection Method Collection Time Receive d Time (Source) Location / / Volume Laterality Blood specimen 06/21/2013 7:50 AM 013 (specimen) EST 10:29 AM EST Resulting Agency Comment Spec In Lab Ev Buckner MD CHEMISTRY ORDERABLES Performing Organization Address City/State/ZIP [place] [address] CERNER MILLENNIUM (ABNORMAL) POCT Glucose (06/21/2013 6:34 AM EST) athologist Signature POC Glucose 228 (H) 60 - 199 CERNER mg/dL MILLENNIUM Comment: Supplemental ranges: <110 mg/dL before meals <200 mg/dL all other times of the day Specimen Anatomical Collection Method Collection Time Receive d Time (Source) Location / / Volume Laterality Blood specimen 06/21/2013 6:34 AM 013 6:34 (specimen) EST AM EST Tammy Mccann MD POINT OF CARE TEST ORDERABLE S Performing Organization Address City/State/ZIP Code Phon e Number [address] CERNER MILLENNIUM (ABNORMAL) POCT Glucose (06/21/2013 4:33 AM EST) P athologist Signature POC Glucose 272 (H) 60 - 199 CERNER mg/dL MILLENNIUM Comment: Supplemental ranges: <110 mg/dL before meals <200 mg/dL all other times of the day Specimen Anatomical Collection Method Collection Time Receive d Time (Source) Location / / Volume Laterality Blood specimen 06/21/2013 4:33 AM 013 4:33 (specimen) EST AM EST Tammy Mccann MD POINT OF CARE TEST ORDERABLE S Performing Organization Address City/State/ZIP Code Phon e Number [address] CERNER MILLENNIUM (ABNORMAL) Differential, Automated (06/21/2013 4:30 AM EST) Patholo gist Method Time Signature Neutrophils % 71.7 (H) 34.0 - CERNER 71.0 % MILLENNIUM Neutr Abs (ANC) 4.33 1.50 - CERNER 6.30 MILLENNIUM x10(3)/mc L Lymphocytes % 17.2 (L) 19.0 - CERNER 53.0 % MILLENNIUM Lymphocytes Abs 1.0 1.0 - 3.6 CERNER x10(3)/mc MILLENNIUM L Monocytes % 7.8 4.0 - CERNER 13.0 % MILLENNIUM Monocyte Abs 0.5 0.2 - 1.0 CERNER x10(3)/mc MILLENNIUM L Eosinophils % 2.5 0.0 - 7.0 CERNER % MILLENNIUM Eosinophils Abs 0.2 0.0 - 0.5 CERNER x10(3)/mc MILLENNIUM L Basophils % 0.5 0.0 - 2.0 CERNER % MILLENNIUM Basophils Abs 0.0 0.0 - 0.2 CERNER x10(3)/mc MILLENNIUM L Immature Gran % 0.30 0.00 - CERNER 0.66 % MILLENNIUM Comment: Immature granulocytes(IG's)percentage an d absolute count will include metamyelocytes, myelocytes, and promyelo cytes. Blood smears from CBCs yielding IG's will be scanned manually for concor dance. If this scan disagrees with the automated IG or if promyelocytes are not ed, a manual differential will be performed. Courtney Gran Abs 0.02 0.00 - 0.05 x10(3)/mcL CER NER MILLENNIUM Specimen Anatomical Collection Method Collection Time Receive d Time (Source) Location / / Volume Laterality Blood specimen 06/21/2013 4:30 AM 013 4:39 (specimen) EST AM EST Tammy Mccann MD HEMATOLOGY ORDERABLES Performing Organization Address City/State/ZIP Code Phon e Number [place] [phone] CERNER MILLENNIUM (ABNORMAL) Basic Metabolic Panel (non-fasting) (06/21/2013 4:30 AM EST) athologist Signature Glucose Lvl 273 (H) 60 - 199 CERNER mg/dL MILLENNIUM Comment: Diabetes: >=200 mg/dL plus symp toms BUN 23 (H) 10 - 20 mg/dL CERNER MILLENNIU M Creatinine 1.36 0.80 - 1.50 mg/dL CERNER MILL ENNIUM Comment: Please note that the pediatric reference intervals supplied above were not validated at [facility]. Results from pediatri c patients should be interpreted in conjunction to the patient's age, height and muscle mass. Sodium 138 135 - 145 mmol/L CERNER OMKAR NIUM Potassium 4.1 3.5 - 5.0 mmol/L CERNER OMKAR NIUM Comment: Please note: ??Patients with WBC >100,00 0 may have falsely elevated Potassium levels. ??For accurate Potassium quantif ication in these patients send serum separator tube (gold top) for subsequent determinations. ??Contact the Clinical Chemistry Laboratory if there are any qu estions. Chloride 106 98 - 107 mmol/L CERNER MILLENN IUM CO2 18 (L) 22 - 31 mmol/L CERNER MILLENNI UM Anion Gap 14 5 - 15 mmol/L CERNER MILLENNIU M Calcium 9.0 8.5 - 10.5 mg/dL CERNER OMKAR NIUM Estimated GFR 53 (L) >=60 CERNER MILLENNIU M Comment: This [...] Location / / Volume Laterality Blood specimen 06/21/2013 4:30 AM 013 4:39 (specimen) EST AM EST Resulting Agency Comment Spec In Lab Ev Buckner MD CHEMISTRY ORDERABLES Performing Organization Address City/State/ZIP Code Phon e Number [place] [phone] CERNER MILLENNIUM (ABNORMAL) CBC (with Diff) (06/21/2013 4:30 AM EST) P athologist Signature WBC 6.0 4.0 - 10.0 CERNER x10(3)/mcL MILLENNIUM RBC 3.15 (L) 4.63 - CERNER 6.08 MILLENNIUM x10(6)/mcL Hemoglobin 9.7 (L) 13.7 - CERNER 17.5 gm/dL MILLENNIUM Hematocrit 30.2 (L) 40.0 - CERNER 51.0 % MILLENNIUM MCV 95.9 (H) 79.0 - CERNER 92.0 fL MILLENNIUM MCH 30.8 25.6 - CERNER 32.2 pg MILLENNIUM MCHC 32.1 32.0 - CERNER 36.5 gm/dL MILLENNIUM Platelets 141 (L) 145 - 370 CERNER x10(3)/mcL MILLENNIUM RDWSD 47.3 (H) 35.0 - CERNER 46.0 fL MILLENNIUM RDWCV 13.5 10.9 - CERNER 14.4 % MILLENNIUM MPV 9.0 9.0 - 12.0 CERNER fL MILLENNIUM Specimen Anatomical Collection Method Collection Time Receive d Time (Source) Location / / Volume Laterality Blood specimen 06/21/2013 4:30 AM 013 4:39 (specimen) EST AM EST Resulting Agency Comment Spec In Lab Ev Buckner MD HEMATOLOGY ORDERABLES Performing Organization Address City/State/ZIP Code Phon e Number [address] CERNER MILLENNIUM (ABNORMAL) POCT Glucose (06/21/2013 12:11 AM EST) athologist Signature POC Glucose 225 (H) 60 - 199 CERNER mg/dL [facility] Comment: Supplemental ranges: <110 mg/dL before meals <200 mg/dL all other times of the day Specimen Anatomical Collection Method Collection Time Receive d Time (Source) Location / / Volume Laterality Blood specimen 06/21/2013 12:11 3 (specimen) AM EST 12:11 AM EST Tammy Mccann MD POINT OF CARE TEST ORDERABLE S Performing Organization Address City/[facility]/ZIP Code Phon e Number [address] CERNER MILLENNIUM POCT Glucose (06/20/2013 7:52 PM EST) P athologist Signature POC Glucose 148 60 - 199 CERNER mg/dL MILLENNIUM Comment: Supplemental ranges: <110 mg/dL before meals <200 mg/dL all other times of the day Specimen Anatomical Collection Method Collection Time Receive d Time (Source) Location / / Volume Laterality Blood specimen 06/20/2013 7:52 PM 013 7:52 (specimen) EST PM EST Tammy Mccann MD POINT OF CARE TEST ORDERABLE S Performing Organization Address City/State/ZIP Code Phon e Number [address] CERNER MILLENNIUM Potassium (06/20/2013 7:50 PM EST) athologist Signature Potassium 4.3 3.5 - 5.0 CERNER mmol/L [facility] Comment: Please note: ??Patients with WBC >100,00 0 may have falsely elevated Potassium levels. ??For accurate Potassium quantif ication in these patients send serum separator tube (gold top) for subsequent determinations. ??Contact the Clinical Chemistry Laboratory if there are any qu estions. Specimen Anatomical Collection Method Collection Time Receive d Time (Source) Location / / Volume Laterality Blood specimen 06/20/2013 7:50 PM 013 8:02 (specimen) EST PM EST Resulting Agency Comment Spec In Lab Tammy Mccann MD CHEMISTRY ORDERABLES Performing Organization Address City/[facility] Phon e Number [address] CERNER MILLENNIUM (ABNORMAL) POCT Glucose (06/20/2013 6:12 PM EST) athologist Signature POC Glucose 243 (H) 60 - 199 CERNER mg/dL [facility] Comment: Supplemental ranges: <110 mg/dL before meals <200 mg/dL all other times of the day Specimen Anatomical Collection Method Collection Time Receive d Time (Source) Location / / Volume Laterality Blood specimen 06/20/2013 6:12 PM 013 6:12 (specimen) EST PM EST Tammy Mccann MD POINT OF CARE TEST ORDERABLE S Performing Organization Address City/[facility]/ZIP [place] [address] CERNER MILLENNIUM (ABNORMAL) POCT Glucose (06/20/2013 4:41 PM EST) athologist Signature POC Glucose 250 (H) 60 - 199 CERNER mg/dL [facility] Comment: Supplemental ranges: <110 mg/dL before meals <200 mg/dL all other times of the day Specimen Anatomical Collection Method Collection Time Receive d Time (Source) Location / / Volume Laterality Blood specimen 06/20/2013 4:41 PM 013 4:41 (specimen) EST PM EST Tammy Mccann MD POINT OF CARE TEST ORDERABLE S Performing Organization Address City/[facility]/[place] [address] CERNER MILLENNIUM POCT Glucose (06/20/2013 12:07 PM EST) P athologist Signature POC Glucose 144 60 - 199 CERNER mg/dL MILLENNIUM Comment: Supplemental ranges: <110 mg/dL before meals <200 mg/dL all other times of the day Specimen Anatomical Collection Method Collection Time Receive d Time (Source) Location / / Volume Laterality Blood specimen 06/20/2013 12:07 3 (specimen) PM EST 12:07 PM EST Tammy Mccann MD POINT OF CARE TEST ORDERABLE S Performing Organization Address City/[facility]/ZIP Code Phon e Number [address] CERNER MILLENNIUM POCT Glucose (06/20/2013 10:33 AM EST) P athologist Signature POC Glucose 163 60 - 199 CERNER mg/dL MILLENNIUM Comment: Supplemental ranges: <110 mg/dL before meals <200 mg/dL all other times of the day Specimen Anatomical Collection Method Collection Time Receive d Time (Source) Location / / Volume Laterality Blood specimen 06/20/2013 10:33 3 (specimen) AM EST 10:33 AM EST Tammy Mcacnn MD POINT OF CARE TEST ORDERABLE S Performing Organization Address City/[facility]/Z[place] [address] CERNER MILLENNIUM POCT Glucose (06/20/2013 8:01 AM EST) P athologist Signature POC Glucose 149 60 - 199 CERNER mg/dL MILLENNIUM Comment: Supplemental ranges: <110 mg/dL before meals <200 mg/dL all other times of the day Specimen Anatomical Collection Method Collection Time Receive d Time (Source) Location / / Volume Laterality Blood specimen 06/20/2013 8:01 AM 013 8:01 (specimen) EST AM EST Tammy Mccann MD POINT OF CARE TEST ORDERABLE S Performing Organization Address City/[facility]/ZIP [place] [address] CERNER MILLENNIUM Potassium (06/20/2013 8:00 AM EST) athologist Signature Potassium 4.7 3.5 - 5.0 CERNER mmol/L MILLENNIUM Comment: Please note: ??Patients with WBC >100,00 0 may have falsely elevated Potassium levels. ??For accurate Potassium quantif ication in these patients send serum separator tube (gold top) for subsequent determinations. ??Contact the Clinical Chemistry Laboratory if there are any qu estions. Specimen Anatomical Collection Method Collection Time Receive d Time (Source) Location / / Volume Laterality Blood specimen 06/20/2013 8:00 AM 013 8:15 (specimen) EST AM EST Resulting Agency Comment Spec In Lab Tammy Mccann MD CHEMISTRY ORDERABLES Performing Organization Address City/[facility]/Z[place] [address] CERNER MILLENNIUM Tacrolimus level (06/20/2013 8:00 AM EST) athologist [facility] Tacrolimus Lvl 4.8 ng/mL CERNER MILLENNIUM Comment: Trough therapeutic: 5-15 ng/mL Specimen Anatomical Collection Method Collection Time Receive d Time (Source) Location / / Volume Laterality Blood specimen 06/20/2013 8:00 AM 013 (specimen) EST 12:04 PM EST Resulting Agency Comment Spec In Lab Tammy Mccann MD CHEMISTRY ORDERABLES Performing Organization Address City/[facility]/ZIP [place] [address] CERNER MILLENNIUM POCT Glucose (06/20/2013 6:17 AM EST) athologist Signature POC Glucose 136 60 - 199 CERNER mg/dL [facility] Comment: Supplemental ranges: <110 mg/dL before meals <200 mg/dL all other times of the day Specimen Anatomical Collection Method Collection Time Receive d Time (Source) Location / / Volume Laterality Blood specimen 06/20/2013 6:17 AM 013 6:17 (specimen) EST AM EST Tammy Mccann MD POINT OF CARE TEST ORDERABLE S Performing Organization Address City/State/ZIP Code [place] [address] CERNER MILLENNIUM (ABNORMAL) Differential, Automated (06/20/2013 5:00 AM EST) [facility] Method Time Signature Neutrophils % 66.0 34.0 - CERNER 71.0 % MILLENNIUM Neutr Abs (ANC) 3.28 1.50 - CERNER 6.30 MILLENNIUM x10(3)/mc L Lymphocytes % 16.5 (L) 19.0 - CERNER 53.0 % MILLENNIUM Lymphocytes Abs 0.8 (L) 1.0 - 3.6 CERNER x10(3)/mc MILLENNIUM L Monocytes % 10.9 4.0 - CERNER 13.0 % MILLENNIUM Monocyte Abs 0.5 0.2 - 1.0 CERNER x10(3)/mc MILLENNIUM L Eosinophils % 5.8 0.0 - 7.0 CERNER % MILLENNIUM Eosinophils Abs 0.3 0.0 - 0.5 CERNER x10(3)/mc MILLENNIUM L Basophils % 0.6 0.0 - 2.0 CERNER % MILLENNIUM Basophils Abs 0.0 0.0 - 0.2 CERNER x10(3)/mc MILLENNIUM L Immature Gran % 0.20 0.00 - CERNER [...] Location / / Volume Laterality Blood specimen 06/20/2013 5:00 AM 013 5:08 (specimen) EST AM EST Tammy Mccann MD HEMATOLOGY ORDERABLES Performing Organization Address City/State/ZIP Code [place] [address] CERNER MILLENNIUM (ABNORMAL) Basic Metabolic Panel (non-fasting) (06/20/2013 5:00 AM EST) P athologist Signature Glucose Lvl 143 60 - 199 CERNER mg/dL MILLENNIUM Comment: Diabetes: >=200 mg/dL plus symp toms BUN 21 (H) 10 - 20 mg/dL CERNER MILLENNIU M Creatinine 1.32 0.80 - 1.50 mg/dL CERNER MILL ENNIUM Comment: Please note that the pediatric reference intervals supplied above were not validated at [facility]. Results from pediatri c patients should be interpreted in conjunction to the patient's age, height and muscle mass. Sodium 139 135 - 145 mmol/L CERNER OMKAR NIUM [...] Chloride 110 (H) 98 - 107 mmol/L CERNER MILLENN IUM CO2 17 (L) 22 - 31 mmol/L CERNER MILLENNI UM Anion Gap 12 5 - 15 mmol/L CERNER MILLENNIU M Calcium 8.9 8.5 - 10.5 mg/dL CERNER OMKAR NIUM Estimated GFR 55 (L) >=60 CERNER MILLENNIU M Comment: This [...] Location / / Volume Laterality Blood specimen 06/20/2013 5:00 AM 013 5:08 (specimen) EST AM EST Resulting Agency Comment Spec In Lab Ev Buckner MD CHEMISTRY ORDERABLES Performing Organization Address City/[facility]/Z[place] [address] CERNER MILLENNIUM (ABNORMAL) CBC (with Diff) (06/20/2013 5:00 AM EST) P athologist Signature WBC 5.0 4.0 - 10.0 CERNER x10(3)/mcL MILLENNIUM RBC 3.22 (L) 4.63 - CERNER 6.08 MILLENNIUM x10(6)/mcL Hemoglobin 10.1 (L) 13.7 - CERNER 17.5 gm/dL MILLENNIUM Hematocrit 31.5 (L) 40.0 - CERNER 51.0 % MILLENNIUM MCV 97.8 (H) 79.0 - CERNER 92.0 fL MILLENNIUM MCH 31.4 25.6 - CERNER 32.2 pg MILLENNIUM MCHC 32.1 32.0 - CERNER 36.5 gm/dL MILLENNIUM Platelets 139 (L) 145 - 370 CERNER x10(3)/mcL MILLENNIUM RDWSD 50.1 (H) 35.0 - CERNER 46.0 fL MILLENNIUM RDWCV 14.0 10.9 - CERNER 14.4 % MILLENNIUM MPV 8.9 (L) 9.0 - 12.0 CERNER fL MILLENNIUM Specimen Anatomical Collection Method Collection Time Receive d Time (Source) Location / / Volume Laterality Blood specimen 06/20/2013 5:00 AM 013 5:08 (specimen) EST AM EST Resulting Agency Comment Spec In Lab Ev Buckner MD HEMATOLOGY ORDERABLES Performing Organization Address City/[facility]/ZIP [place] [address] CERNER MILLENNIUM (ABNORMAL) BLOOD GAS 2 ARTERIAL (06/20/2013 4:56 AM EST) Analysis Performed At Patho logist Time Signature pH Art 7.33 (L) CERNER MILLENNIUM pCO2 Art 34 (L) mmHg CERNER MILLENNIUM pO2 Art 96 mmHg CERNER MILLENNIUM HCO3 Art 17.4 (L) mmol/L CERNER MILLENNIUM BE Art -8.4 (L) mmol/L CERNER MILLENNIUM Hgb Blood Gas 10.7 (L) gm/dL CERNER MILLENNIUM Comment: Total Hemoglobin (in gm/dL) ?Based on [facility] Hematology ran ges: ?Age ?Referen ce Range Less than 3 days ?14.5 to 22.5 3 days to 2 weeks ? 12.5 to 20.5 2 weeks to 1 month ?10.0 to 18.0 1 to 6 months ?9.4 to 14 .0 6 months to 2 years ? 10.5 to 13.5 2 to 6 years ?11.5 to 13 .5 6 to 12 years ? 11.5 to 15. 5 12 to 18 years (female) 12.0 to 16.0 ? (male) ?? 13.0 to 16.0 > 18 years ? (female) 11.2 to 15.7 ? (male) ?? 13.7 to 17.5 O2HB Art 96.2 % CERNER MILLENNIUM COHB Art 0.4 % CERNER MILLENNIUM Comment: Nonsmokers: 0.5-1.5% COHB Smokers: Variable, but usually less than 10% Toxic: 20-30% COHB Lethal: Greater than 60% COHB METHB Art 0.0 % CERNER MILLENNIUM Na Whole Blood 139 mmol/L CERNER MILLENNI UM K Whole Blood 4.5 mmol/L CERNER MILLENNIU M Comment: Please note: Patients with WBC >100,000 may have falsely elevated Potassium levels. Contact the Clinical Chemistry L aboratory if there are any questions. ICa Whole Blood 1.26 mmol/L CERNER MILLENN IUM Comment: Reference Ranges: ?? < 19 yrs: 1.22 - 1.37 mmol/L ? Adults: 1.15 - 1.33 mmol/L Note: ??Total bilirubin higher than 20 m g/dL may lead to falsely low ionized calcium. CL Whole Blood 113 (H) mmol/L CERNER MILLENNI UM Gluc Whole Bld 138 mg/dL CERNER MILLENNI UM Comment: Diabetes: >=200 mg/dL plus symp toms. FIO2 Art 30 % CERNER MILLENNIUM PF Ratio Art 320 CERNER MILLENNIUM Specimen Anatomical Collection Method Collection Time Receive d Time (Source) Location / / Volume Laterality Blood specimen 06/20/2013 4:56 AM 013 4:56 (specimen) EST AM EST Tammy Mccann MD CHEMISTRY ORDERABLES Performing Organization Address City/[facility] [place] [address] CERNER MILLENNIUM POCT Glucose (06/20/2013 4:05 AM EST) P athologist Signature POC Glucose 150 60 - 199 CERNER mg/dL MILLENNIUM Comment: Supplemental ranges: <110 mg/dL before meals <200 mg/dL all other times of the day Specimen Anatomical Collection Method Collection Time Receive d Time (Source) Location / / Volume Laterality Blood specimen 06/20/2013 4:05 AM 013 4:05 (specimen) EST AM EST Tammy Mccann MD POINT OF CARE TEST ORDERABLE S Performing Organization Address City/[facility]/Z[place] [address] CERNER MILLENNIUM POCT Glucose (06/20/2013 2:14 AM EST) P athologist Signature POC Glucose 151 60 - 199 CERNER mg/dL MILLENNIUM Comment: Supplemental ranges: <110 mg/dL before meals <200 mg/dL all other times of the day Specimen Anatomical Collection Method Collection Time Receive d Time (Source) Location / / Volume Laterality Blood specimen 06/20/2013 2:14 AM 013 2:14 (specimen) EST AM EST Tammy Mccann MD POINT OF CARE TEST ORDERABLE S Performing Organization Address [facility]/Z[place] [address] CERNER MILLENNIUM Potassium (06/19/2013 11:56 PM EST) athologist Signature Potassium 4.4 3.5 - 5.0 CERNER mmol/L MILLENNIUM Comment: Please note: ??Patients with WBC >100,00 0 may have falsely elevated Potassium levels. ??For accurate Potassium quantif ication in these patients send serum separator tube (gold top) for subsequent determinations. ??Contact the Clinical Chemistry Laboratory if there are any qu estions. Specimen Anatomical Collection Method Collection Time Receive d Time (Source) Location / / Volume Laterality Blood specimen 06/19/2013 11:56 3 (specimen) PM EST 11:56 PM EST Resulting Agency Comment Spec In Lab Tammy Mccann MD CHEMISTRY ORDERABLES Performing Organization Address City/[facility]/[place] [address] CERNER MILLENNIUM POCT Glucose (06/19/2013 11:52 PM EST) athologist Signature POC Glucose 157 60 - 199 CERNER mg/dL ENNIUM Comment: Supplemental ranges: <110 mg/dL before meals <200 mg/dL all other times of the day Specimen Anatomical Collection Method Collection Time Receive d Time (Source) Location / / Volume Laterality Blood specimen 06/19/2013 11:52 3 (specimen) PM EST 11:52 PM EST Tammy Mccann MD POINT OF CARE TEST ORDERABLE S Performing Organization Address City/State/Z[place] [address] CERNER MILLENNIUM (ABNORMAL) BLOOD GAS 2 ARTERIAL (06/19/2013 9:16 PM EST) Analysis Performed At Patho logist Time Signature pH Art 7.34 (L) CERNER MILLENNIUM pCO2 Art 36 mmHg CERNER MILLENNIUM pO2 Art 96 mmHg CERNER MILLENNIUM HCO3 Art 18.9 (L) mmol/L CERNER MILLENNIUM BE Art -6.8 (L) mmol/L CERNER MILLENNIUM Hgb Blood Gas 10.0 (L) gm/dL CERNER MILLENNIUM Comment: Total Hemoglobin (in gm/dL) ?Based on [facility] Hematology ran ges: ?Age ?Referen ce Range Less than 3 days ?14.5 to 22.5 3 days to 2 weeks ? 12.5 to 20.5 2 weeks to 1 month ?10.0 to 18.0 1 to 6 months ?9.4 to 14 .0 6 months to 2 years ? 10.5 to 13.5 2 to 6 years ?11.5 to 13 .5 6 to 12 years ? 11.5 to 15. 5 12 to 18 years (female) 12.0 to 16.0 ? (male) ?? 13.0 to 16.0 > 18 years ? (female) 11.2 to 15.7 ? (male) ?? 13.7 to 17.5 O2HB Art 95.9 % CERNER MILLENNIUM COHB Art 0.7 % CERNER MILLENNIUM Comment: Nonsmokers: 0.5-1.5% COHB Smokers: Variable, but usually less than 10% Toxic: 20-30% COHB Lethal: Greater than 60% COHB METHB Art 0.1 % CERNER MILLENNIUM Na Whole Blood 139 mmol/L CERNER MILLENNI UM K Whole Blood 4.3 mmol/L CERNER MILLENNIU M Comment: Please note: Patients with WBC >100,000 may have falsely elevated Potassium levels. Contact the Clinical Chemistry L aboratory if there are any questions. ICa Whole Blood 1.27 mmol/L CERNER MILLENN IUM Comment: Reference Ranges: ?? < 19 yrs: 1.22 - 1.37 mmol/L ? Adults: 1.15 - 1.33 mmol/L Note: ??Total bilirubin higher than 20 m g/dL may lead to falsely low ionized calcium. CL Whole Blood 116 (H) mmol/L CERNER MILLENNI UM Gluc Whole Bld 149 mg/dL CERNER MILLENNI UM Comment: Diabetes: >=200 mg/dL plus symp toms. FIO2 Art 30 % CERNER MILLENNIUM PF Ratio Art 320 CERNER MILLENNIUM Specimen Anatomical Collection Method Collection Time Receive d Time (Source) Location / / Volume Laterality Blood specimen 06/19/2013 9:16 PM 013 9:16 (specimen) EST PM EST Tammy Mccann MD CHEMISTRY ORDERABLES Performing Organization Address City/[facility]/ZIP [place] [address] CERNER MILLENNIUM Potassium (06/19/2013 9:15 PM EST) athologist Signature Potassium 4.4 3.5 - 5.0 CERNER mmol/L [facility] Comment: Please note: ??Patients with WBC >100,00 0 may have falsely elevated Potassium levels. ??For accurate Potassium quantif ication in these patients send serum separator tube (gold top) for subsequent determinations. ??Contact the Clinical Chemistry Laboratory if there are any qu estions. Specimen Anatomical Collection Method Collection Time Receive d Time (Source) Location / / Volume Laterality Blood specimen 06/19/2013 9:15 PM 013 9:34 (specimen) EST PM EST Resulting Agency Comment Spec In Lab Tammy Mccann MD CHEMISTRY ORDERABLES Performing Organization Address City/[facility]/ZIP [place] [address] CERNER MILLENNIUM POCT Glucose (06/19/2013 8:09 PM EST) athologist Signature POC Glucose 141 60 - 199 CERNER mg/dL [facility] Comment: Supplemental ranges: <110 mg/dL before meals <200 mg/dL all other times of the day Specimen Anatomical Collection Method Collection Time Receive d Time (Source) Location / / Volume Laterality Blood specimen 06/19/2013 8:09 PM 013 8:09 (specimen) EST PM EST Tammy Mccann MD POINT OF CARE TEST ORDERABLE S Performing Organization Address City/State/Z[place] [address] CERNER MILLENNIUM POCT Glucose (06/19/2013 4:46 PM EST) athologist Signature POC Glucose 165 60 - 199 CERNER mg/dL MILLENNIUM Comment: Supplemental ranges: <110 mg/dL before meals <200 mg/dL all other times of the day Specimen Anatomical Collection Method Collection Time Receive d Time (Source) Location / / Volume Laterality Blood specimen 06/19/2013 4:46 PM 013 4:46 (specimen) EST PM EST Tammy Mccann MD POINT OF CARE TEST ORDERABLE S Performing Organization Address City/[facility]/ZIP Code Phon e Number [address] CERNER MILLENNIUM Potassium (06/19/2013 4:43 PM EST) athologist [facility] Potassium 4.5 3.5 - 5.0 CERNER mmol/L MILLENNIUM Comment: Please note: ??Patients with WBC >100,00 0 may have falsely elevated Potassium levels. ??For accurate Potassium quantif ication in these patients send serum separator tube (gold top) for subsequent determinations. ??Contact the Clinical Chemistry Laboratory if there are any qu estions. Specimen Anatomical Collection Method Collection Time Receive d Time (Source) Location / / Volume Laterality Blood specimen 06/19/2013 4:43 PM 013 4:59 (specimen) EST PM EST Resulting Agency Comment Spec In Lab Tammy Mccann MD CHEMISTRY ORDERABLES Performing Organization Address City/State/Z[place] [address] CERNER MILLENNIUM POCT Glucose (06/19/2013 2:50 PM EST) athologist Signature POC Glucose 184 60 - 199 CERNER mg/dL MILLENNIUM Comment: Supplemental ranges: <110 mg/dL before meals <200 mg/dL all other times of the day Specimen Anatomical Collection Method Collection Time Receive d Time (Source) Location / / Volume Laterality Blood specimen 06/19/2013 2:50 PM 013 2:50 (specimen) EST PM EST Tammy Mccann MD POINT OF CARE TEST ORDERABLE S Performing Organization Address City/[facility]/ZIP Code Phon e Number [address] CERNER MILLENNIUM Potassium (06/19/2013 12:21 PM EST) athologist Signature Potassium 4.7 3.5 - 5.0 CERNER mmol/L [facility] Comment: Please note: ??Patients with WBC >100,00 0 may have falsely elevated Potassium levels. ??For accurate Potassium quantif ication in these patients send serum separator tube (gold top) for subsequent determinations. ??Contact the Clinical Chemistry Laboratory if there are any qu estions. Specimen Anatomical Collection Method Collection Time Receive d Time (Source) Location / / Volume Laterality Blood specimen 06/19/2013 12:21 3 (specimen) PM EST 12:31 PM EST Resulting Agency Comment Spec In Lab Tammy Mccann MD CHEMISTRY ORDERABLES Performing Organization Address City/[facility]/ZIP Code Phon e Number [address] CERNER MILLENNIUM POCT Glucose (06/19/2013 12:01 PM EST) athologist Signature POC Glucose 198 60 - 199 CERNER mg/dL [facility] Comment: Supplemental ranges: <110 mg/dL before meals <200 mg/dL all other times of the day Specimen Anatomical Collection Method Collection Time Receive d Time (Source) Location / / Volume Laterality Blood specimen 06/19/2013 12:01 3 (specimen) PM EST 12:01 PM EST Tammy Mccann MD POINT OF CARE TEST ORDERABLE S Performing Organization Address City/[facility]/ZIP Code Phon e Number [address] CERNER MILLENNIUM Blood culture (06/19/2013 11:07 AM EST) [facility] gist Method Time Signature Blood Culture CERNER ? Patient Name: LEROY DAILEY ?Ordered By: TAMMY MCCANN ? MR#: [id number] ?LOC: ??[id number] ? /Sex: ??1955 (58 years), ? Male ? PROCEDURE: Blood Culture ?SOURCE: Blood ? COLLECTED: 06/19/2013 11:07 ?FREE TEXT SOURCE: no site provided ? STARTED: 06/19/2013 11:28 ? FINAL REPORT ? Final Report ? Verified:06/25/2013 15:01 ? No growth at 5 days. ? PRELIMINARY REPORT ? Preliminary Report ? Verified:06/23/2013 15:01 ? No growth at 4 days. ? Specimen Anatomical Collection Method Collection Time Receive d Time (Source) Location / / Volume Laterality Blood specimen 06/19/2013 11:07 3 (specimen) AM EST 11:28 AM EST Comment: NO SITE PROVIDED Resulting Agency Comment Spec In Lab Tammy Mccann MD MICROBIOLOGY - BLOOD ORDERAB LES Performing Organization Address City/State/ZIP [place] [address] CERNER MILLENNIUM POCT Glucose (06/19/2013 10:04 AM EST) P athologist Signature POC Glucose 193 60 - 199 CERNER mg/dL [facility] Comment: Supplemental ranges: <110 mg/dL before meals <200 mg/dL all other times of the day Specimen Anatomical Collection Method Collection Time Receive d Time (Source) Location / / Volume Laterality Blood specimen 06/19/2013 10:04 3 (specimen) AM EST 10:04 AM EST Tammy Mccann MD POINT OF CARE TEST ORDERABLE S Performing Organization Address City/State/ZIP [place] [address] CERNER MILLENNIUM Differential, Automated (06/19/2013 10:00 AM EST) P athologist Signature Neutrophils % 68.1 34.0 - CERNER 71.0 % MILLENNIUM Neutr Abs (ANC) 3.66 1.50 - CERNER 6.30 MILLENNIUM x10(3)/mcL Lymphocytes % 20.8 19.0 - CERNER 53.0 % MILLENNIUM Lymphocytes Abs 1.1 1.0 - 3.6 CERNER x10(3)/mcL MILLENNIUM Monocytes % 7.2 4.0 - 13.0 CERNER % MILLENNIUM Monocyte Abs 0.4 0.2 - 1.0 CERNER x10(3)/mcL MILLENNIUM Eosinophils % 3.3 0.0 - 7.0 CERNER % MILLENNIUM Eosinophils Abs 0.2 0.0 - 0.5 CERNER x10(3)/mcL MILLENNIUM Basophils % 0.4 0.0 - 2.0 CERNER % MILLENNIUM Basophils [...] Location / / Volume Laterality Blood specimen 06/19/2013 10:00 11/26/201 3 (specimen) AM EST 10:13 AM EST Tammy Mccann MD HEMATOLOGY ORDERABLES Performing Organization Address City/State/[place] [address] CERNER MILLENNIUM (ABNORMAL) CBC (with Diff) (06/19/2013 10:00 AM EST) athologist Signature WBC 5.4 4.0 - 10.0 CERNER x10(3)/mcL MILLENNIUM RBC 3.03 (L) 4.63 - CERNER 6.08 MILLENNIUM x10(6)/mcL Hemoglobin 9.4 (L) 13.7 - CERNER 17.5 gm/dL MILLENNIUM Hematocrit 30.1 (L) 40.0 - CERNER 51.0 % MILLENNIUM MCV 99.3 (H) 79.0 - CERNER 92.0 fL MILLENNIUM MCH 31.0 25.6 - CERNER 32.2 pg MILLENNIUM MCHC 31.2 (L) 32.0 - CERNER 36.5 gm/dL MILLENNIUM Platelets 132 (L) 145 - 370 CERNER x10(3)/mcL MILLENNIUM RDWSD 50.9 (H) 35.0 - CERNER 46.0 fL MILLENNIUM RDWCV 14.2 10.9 - CERNER 14.4 % MILLENNIUM MPV 8.9 (L) 9.0 - 12.0 CERNER fL MILLENNIUM Specimen Anatomical Collection Method Collection Time Receive d Time (Source) Location / / Volume Laterality Blood specimen 06/19/2013 10:00 3 (specimen) AM EST 10:13 AM EST Resulting Agency Comment Spec In Lab Tammy Mccann MD HEMATOLOGY ORDERABLES Performing Organization Address City/[facility]/ZIP [place] [address] CERNER MILLENNIUM POCT Glucose (06/19/2013 8:32 AM EST) athologist Signature POC Glucose 197 60 - 199 CERNER mg/dL [facility] Comment: Supplemental ranges: <110 mg/dL before meals <200 mg/dL all other times of the day Specimen Anatomical Collection Method Collection Time Receive d Time (Source) Location / / Volume Laterality Blood specimen 06/19/2013 8:32 AM 013 8:32 (specimen) EST AM EST Tammy Mccann MD POINT OF CARE TEST ORDERABLE S Performing Organization Address City/State/ZIP [place] [address] CERNER MILLENNIUM (ABNORMAL) BLOOD GAS 2 ARTERIAL (06/19/2013 8:32 AM EST) [facility] gist Method Time Signature pH Art 7.35 (L) CERNER MILLENNIUM pCO2 Art 29 (L) mmHg CERNER MILLENNIUM pO2 Art 119 (H) mmHg CERNER MILLENNIUM HCO3 Art 15.4 (L) mmol/L CERNER MILLENNIUM BE Art -10.0 (L) mmol/L CERNER MILLENNIUM Hgb Blood Gas 10.7 (L) gm/dL CERNER MILLENNIUM Comment: Total Hemoglobin (in gm/dL) ?Based on [facility] Hematology ran ges: ?Age ?Referen ce Range Less than 3 days ?14.5 to 22.5 3 days to 2 weeks ? 12.5 to 20.5 2 weeks to 1 month ?10.0 to 18.0 1 to 6 months ?9.4 to 14 .0 6 months to 2 years ? 10.5 to 13.5 2 to 6 years ?11.5 to 13 .5 6 to 12 years ? 11.5 to 15. 5 12 to 18 years (female) 12.0 to 16.0 ? (male) ?? 13.0 to 16.0 > 18 years ? (female) 11.2 to 15.7 ? (male) ?? 13.7 to 17.5 O2HB Art 97.2 (H) % CERNER MILLENNIUM COHB Art 0.3 % CERNER MILLENNIUM Comment: Nonsmokers: 0.5-1.5% COHB Smokers: Variable, but usually less than 10% Toxic: 20-30% COHB Lethal: Greater than 60% COHB METHB Art 0.2 % CERNER MILLENNIUM Na Whole Blood 139 mmol/L CERNER MILLENNI UM K Whole Blood 5.0 mmol/L CERNER MILLENNIU M Comment: Please note: Patients with WBC >100,000 may have falsely elevated Potassium levels. Contact the Clinical Chemistry L aboratory if there are any questions. ICa Whole Blood 1.28 mmol/L CERNER MILLENN IUM Comment: Reference Ranges: ?? < 19 yrs: 1.22 - 1.37 mmol/L ? Adults: 1.15 - 1.33 mmol/L Note: ??Total bilirubin higher than 20 m g/dL may lead to falsely low ionized calcium. CL Whole Blood 117 (H) mmol/L CERNER MILLENNI UM Gluc Whole Bld 198 mg/dL CERNER MILLENNI UM Comment: Diabetes: >=200 mg/dL plus symp toms. FIO2 Art 40 % CERNER MILLENNIUM PF Ratio Art 298 CERNER MILLENNIUM Temp Art 37.6 Celsius CERNER MILLENNIUM Specimen Anatomical Collection Method Collection Time Receive d Time (Source) Location / / Volume Laterality Blood specimen 06/19/2013 8:32 AM 013 8:32 (specimen) EST AM EST Tammy Mccann MD CHEMISTRY ORDERABLES Performing Organization Address City/State/Z[place] [address] CERNER MILLENNIUM EBV PCR Quant (06/19/2013 8:25 AM EST) [facility] gist Method Time Signature EBV NONE DETECTED. CERNER PCR,Quantitat MILLENNIUM roderick ?Lower limit of detection is 500 copies/mL. Comment: This test was developed and its performa nce determined by the [facility] Dept. of Pathology, Clinical Laboratory. ??It has not been cleared or approved by the U.S. Food and Drug Administration. ??The FDA has determined that such clearance or approval is not necessary. ??This elizabeth t is used for clinical purposes. Specimen Anatomical Collection Method Collection Time Receive d Time (Source) Location / / Volume Laterality Blood specimen 06/19/2013 8:25 AM 013 8:58 (specimen) EST AM EST Resulting Agency Comment Spec In Lab Tammy Mccann MD HEMATOLOGY ORDERABLES Performing Organization Address City/[facility]/ZIP [place] [address] CERNER MILLENNIUM CMV PCR, Quantitative (06/19/2013 8:25 AM EST) Patholo gist Method Time Signature CMV DNA PCR Undetected Undetected CERNER Quant IU/mL [facility] Comment: Result in log IU/mL is Undetected. The quantification range of this assay i s 137 to 9,100,000 IU/mL (2.14 log to 6.96 log IU/mL) with a limit of detection at 91 IU/mL (1.96 log IU/mL). Testing was performed by the [employer] AmpliPrep/DEO T aqMan CMV Test ([employer] Test Performed by: [place] [address] Outboard Motor Tester: Purnima Ayoub, Ph. D. Specimen Anatomical Collection Method Collection Time Receive d Time (Source) Location / / Volume Laterality Blood specimen 06/19/2013 8:25 AM 013 2:52 (specimen) EST PM EST Resulting Agency Comment Spec In Lab Tammy Mccann MD IMMUNOLOGY ORDERABLES Performing Organization Address City/[facility]/ZIP [place] [address] CERNER MILLENNIUM Potassium (06/19/2013 8:25 AM EST) P athologist Signature Potassium 5.0 3.5 - 5.0 CERNER mmol/L [facility] Comment: Please note: ??Patients with WBC >100,00 0 may have falsely elevated Potassium levels. ??For accurate Potassium quantif ication in these patients send serum separator tube (gold top) for subsequent determinations. ??Contact the Clinical Chemistry Laboratory if there are any qu estions. Specimen Anatomical Collection Method Collection Time Receive d Time (Source) Location / / Volume Laterality Blood specimen 06/19/2013 8:25 AM 013 8:52 (specimen) EST AM EST Resulting Agency Comment Spec In Lab Tammy Mccann MD CHEMISTRY ORDERABLES Performing Organization Address City/State/ZIP [place] [address] [facility] [address] HOLLI CubiclIUM CT head WO contrast (06/19/2013 7:22 AM EST) Anatomical Region Laterality Modality Head Computed Tomography Specimen (Source) Anatomical Collection Method Collection Time Re ceived Time Location / / Volume Laterality 06/19/2013 7:22 AM EST Narrative 06/19/2013 8:[address] Head Without Contrast Clinical History new onset myoclonic jerking, hypertensio n Comparison None Technique Axial CT images of the head were obtaine d without contrast ?? Findings The cerebral parenchyma is normal in vol ume and morphology. There are small poorly marginated areas of hypoattenuati on in the white matter of the bilateral frontal lobes, nonspecific finding most commonly reflecting small vessel ischemia. The occipital horns and atria of the lateral ventricles are normal. The basilar cisterns are patent. No extr a-axial collection. ??The joy-white differentiation is maintained. There is fluid opacification of the ethmoid air cells, sphenoid sinuses, visualized maxi llary sinuses and frontoethmoidal recesses. Mild mucosal thickening of the frontal sinuses. There is partial fluid opacification of the mastoid air c ells, left worse than right. ??The middle ear cavities are clear. There is asymmetric aeration of the right petrous apex. There is stranding, edema and fascial thickening of the extra-calvarial soft tissues. The visual ized orbits are normal in appearance. 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 ?? Impression No acute intracranial hemorrhage, mass, or evidence for acute ischemia in a large vascular territory. Film and interpretation reviewed by the attending Procedure Note Antoine Sexton MD - 06/19/2013Format ting of this note might be different from the original. Examination CT Head Without Contrast Clinical History new onset myoclonic jerking, hypertensio n Comparison None Technique Axial CT images of the head were obtaine d without contrast Findings The cerebral parenchyma is normal in vol ume and morphology. There are small poorly marginated areas of hypoattenuati on in the white matter of the bilateral frontal lobes, nonspecific finding most commonly reflecting small vessel ischemia. The occipital horns and atria of the lateral ventricles are normal. The basilar cisterns are patent. No extr a-axial collection. The joy-white differentiation is maintained. There is fluid opacification of the ethmoid air cells, sphenoid sinuses, visualized maxi llary sinuses and frontoethmoidal recesses. Mild mucosal thickening of the frontal sinuses. There is partial fluid opacification of the mastoid air c ells, left worse than right. The middle ear cavities are clear. There is asymmetric aeration of the right petrous apex. There is stranding, edema and fascial thickening of the extra-calvarial soft tissues. The visual ized orbits are normal in appearance. 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 Impression No acute intracranial hemorrhage, mass, or evidence for acute ischemia in a large vascular territory. Film and interpretation reviewed by the attending Tammy Mccann MD IMG CT ORDERABLES (ABNORMAL) BLOOD GAS 2 ARTERIAL (06/19/2013 6:32 AM EST) P athologist Signature pH Art 7.28 CERNER (Critical) MILLENNIUM Comment: Noted by chemist instrumentation. pCO2 Art 31 (L) mmHg CERNER MILLENNIUM pO2 Art 95 mmHg CERNER MILLENNIUM HCO3 Art 14.0 (L) mmol/L CERNER MILLENNIUM BE Art -12.8 (L) mmol/L CERNER MILLENNIUM Hgb Blood Gas 9.0 (L) gm/dL HOLLI Ramirez Comment: Total Hemoglobin (in gm/dL) ?Based on [facility] Hematology ran ges: ?Age ?Referen ce Range Less than 3 days ?14.5 to 22.5 3 days to 2 weeks ? 12.5 to 20.5 2 weeks to 1 month ?10.0 to 18.0 1 to 6 months ?9.4 to 14 .0 6 months to 2 years ? 10.5 to 13.5 2 to 6 years ?11.5 to 13 .5 6 to 12 years ? 11.5 to 15. 5 12 to 18 years (female) 12.0 to 16.0 ? (male) ?? 13.0 to 16.0 > 18 years ? (female) 11.2 to 15.7 ? (male) ?? 13.7 to 17.5 O2HB Art 95.1 % CERNER MILLENNIUM COHB Art 1.3 % CERNER MILLENNIUM Comment: Nonsmokers: 0.5-1.5% COHB Smokers: Variable, but usually less than 10% Toxic: 20-30% COHB Lethal: Greater than 60% COHB METHB Art 0.2 % CERNER MILLENNIUM Na Whole Blood 141 mmol/L CERNER MILLENNI UM K Whole Blood 4.0 mmol/L CERNER MILLENNIU M Comment: Please note: Patients with WBC >100,000 may have falsely elevated Potassium levels. Contact the Clinical Chemistry L aboratory if there are any questions. ICa Whole Blood 1.12 (L) mmol/L CERNER MILLENN IUM Comment: Reference Ranges: ?? < 19 yrs: 1.22 - 1.37 mmol/L ? Adults: 1.15 - 1.33 mmol/L Note: ??Total bilirubin higher than 20 m g/dL may lead to falsely low ionized calcium. CL Whole Blood 124 (H) mmol/L CERNER MILLENNI UM Gluc Whole Bld 160 mg/dL CERNER MILLENNI UM Comment: Diabetes: >=200 mg/dL plus symp toms. FIO2 Art 30 % CERNER MILLENNIUM PF Ratio Art 317 CERNER MILLENNIUM Specimen Anatomical Collection Method Collection Time Receive d Time (Source) Location / / Volume Laterality Blood specimen 06/19/2013 6:32 AM 013 6:32 (specimen) EST AM EST Tammy Mccann MD CHEMISTRY ORDERABLES Performing Organization Address City/State/Z[place] [address] CERNER MILLENNIUM POCT Glucose (06/19/2013 5:55 AM EST) athologist Signature POC Glucose 174 60 - 199 CERNER mg/dL [facility] Comment: Supplemental ranges: <110 mg/dL before meals <200 mg/dL all other times of the day Specimen Anatomical Collection Method Collection Time Receive d Time (Source) Location / / Volume Laterality Blood specimen 06/19/2013 5:55 AM 013 5:55 (specimen) EST AM EST Tammy Mccann MD POINT OF CARE TEST ORDERABLE S Performing Organization Address City/State/ZIP Code Phon e Number [address] [facility] Lactic acid, plasma (06/19/2013 4:15 AM EST) athologist Signature Lactate 0.6 0.5 - 2.2 CERNER mmol/L [facility] Specimen Anatomical Collection Method Collection Time Receive d Time (Source) Location / / Volume Laterality Blood specimen 06/19/2013 4:15 AM 013 4:23 (specimen) EST AM EST Resulting Agency Comment Spec In Lab Tammy Mccann MD CHEMISTRY ORDERABLES Performing Organization Address City/State/ZIP Code Phon e Number [address] CERNER MILLENNIUM (ABNORMAL) Basic Metabolic Panel (non-fasting) (06/19/2013 4:15 AM EST) athologist Signature Glucose Lvl 173 60 - 199 CERNER mg/dL [facility] Comment: Diabetes: >=200 mg/dL plus symp toms BUN 23 (H) 10 - 20 mg/dL CERNER MILLENNIU M Creatinine 1.53 (H) 0.80 - 1.50 mg/dL CERNER MILL ENNIUM Comment: Please note that the pediatric reference intervals supplied above were not validated at [facility]. Results from pediatri c patients should be interpreted in conjunction to the patient's age, height and muscle mass. Sodium 140 135 - 145 mmol/L CERNER OMKAR NIUM Potassium 4.8 3.5 - 5.0 mmol/L CERNER OMKAR NIUM Comment: Please note: ??Patients with WBC >100,00 0 may have falsely elevated Potassium levels. ??For accurate Potassium quantif ication in these patients send serum separator tube (gold top) for subsequent determinations. ??Contact the Clinical Chemistry Laboratory if there are any qu estions. Chloride 116 (H) 98 - 107 mmol/L CERNER MILLENN IUM CO2 15 (L) 22 - 31 mmol/L CERNER MILLENNI UM Anion Gap 9 5 - 15 mmol/L CERNER MILLENNIU M Calcium 8.3 (L) 8.5 - 10.5 mg/dL CERNER OMKAR NIUM Estimated GFR 47 (L) >=60 CERNER MILLENNIU M Comment: This [...] Location / / Volume Laterality Blood specimen 06/19/2013 4:15 AM 013 4:23 (specimen) EST AM EST Resulting Agency Comment Spec In Lab Tammy Mccann MD CHEMISTRY ORDERABLES Performing Organization Address City/State/[facility] Phon e Number [place] [id number] CERNER MILLENNIUM POCT Glucose (06/19/2013 4:12 AM EST) P athologist Signature POC Glucose 182 60 - 199 CERNER mg/dL MILLENNIUM Comment: Supplemental ranges: <110 mg/dL before meals <200 mg/dL all other times of the day Specimen Anatomical Collection Method Collection Time Receive d Time (Source) Location / / Volume Laterality Blood specimen 06/19/2013 4:12 AM 013 4:12 (specimen) EST AM EST Tammy Mccann MD POINT OF CARE TEST ORDERABLE S Performing Organization Address City/State/ZIP Code Phon e Number SYLVIA MELI [place] [phone] CERNER MILLENNIUM (ABNORMAL) BLOOD GAS 2 ARTERIAL (06/19/2013 3:45 AM EST) P athologist Signature pH Art 7.17 CERNER (Critical) MILLENNIUM Comment: Noted by chemist instrumentation. pCO2 Art 46 (H) mmHg CERNER MILLENNIUM pO2 Art 86 mmHg CERNER MILLENNIUM HCO3 Art 16.1 (L) mmol/L CERNER MILLENNIUM BE Art -12.4 (L) mmol/L CERNER MILLENNIUM Hgb Blood Gas 9.8 (L) gm/dL DELLANER NELLIEIJanneth Ramirez Comment: Total Hemoglobin (in gm/dL) ?Based on [facility] Hematology ran ges: ?Age ?Referen ce Range Less than 3 days ?14.5 to 22.5 3 days to 2 weeks ? 12.5 to 20.5 2 weeks to 1 month ?10.0 to 18.0 1 to 6 months ?9.4 to 14 .0 6 months to 2 years ? 10.5 to 13.5 2 to 6 years ?11.5 to 13 .5 6 to 12 years ? 11.5 to 15. 5 12 to 18 years (female) 12.0 to 16.0 ? (male) ?? 13.0 to 16.0 > 18 years ? (female) 11.2 to 15.7 ? (male) ?? 13.7 to 17.5 O2HB Art 93.6 (L) % CERNER MILLENNIUM COHB Art 0.6 % CERNER MILLENNIUM Comment: Nonsmokers: 0.5-1.5% COHB Smokers: Variable, but usually less than 10% Toxic: 20-30% COHB Lethal: Greater than 60% COHB METHB Art 0.2 % CERNER MILLENNIUM Na Whole Blood 142 mmol/L CERNER MILLENNI UM K Whole Blood 4.0 mmol/L CERNER MILLENNIU M Comment: Please note: Patients with WBC >100,000 may have falsely elevated Potassium levels. Contact the Clinical Chemistry L aboratory if there are any questions. ICa Whole Blood 1.15 (L) mmol/L CERNER MILLENN IUM Comment: Reference Ranges: ?? < 19 yrs: 1.22 - 1.37 mmol/L ? Adults: 1.15 - 1.33 mmol/L Note: ??Total bilirubin higher than 20 m g/dL may lead to falsely low ionized calcium. CL Whole Blood 124 (H) mmol/L CERNER MILLENNI UM Gluc Whole Bld 155 mg/dL CERNER MILLENNI UM Comment: Diabetes: >=200 mg/dL plus symp toms. FIO2 Art 30 % CERNER MILLENNIUM PF Ratio Art 287 CERNER MILLENNIUM Specimen Anatomical Collection Method Collection Time Receive d Time (Source) Location / / Volume Laterality Blood specimen 06/19/2013 3:45 AM 013 3:45 (specimen) EST AM EST Tammy Mccann MD CHEMISTRY ORDERABLES Performing Organization Address City/[facility]/ZIP [place] [address] CERNER MILLENNIUM Potassium (06/19/2013 3:30 AM EST) P athologist Signature Potassium 4.9 3.5 - 5.0 CERNER mmol/L MILLENNIUM Comment: Please note: ??Patients with WBC >100,00 0 may have falsely elevated Potassium levels. ??For accurate Potassium quantif ication in these patients send serum separator tube (gold top) for subsequent determinations. ??Contact the Clinical Chemistry Laboratory if there are any qu estions. Specimen Anatomical Collection Method Collection Time Receive d Time (Source) Location / / Volume Laterality Blood specimen 06/19/2013 3:30 AM 013 3:30 (specimen) EST AM EST Resulting Agency Comment Spec In Lab Tammy Mccann MD CHEMISTRY ORDERABLES Performing Organization Address City/[facility]/ZIP [place] [address] CERNER MILLENNIUM Tacrolimus level (06/19/2013 3:30 AM EST) athologist Signature Tacrolimus Lvl 5.9 ng/mL CERNER MILLENNIUM Comment: Trough therapeutic: 5-15 ng/mL Specimen Anatomical Collection Method Collection Time Receive d Time (Source) Location / / Volume Laterality Blood specimen 06/19/2013 3:30 AM 013 8:17 (specimen) EST AM EST Resulting Agency Comment Spec In Lab Tammy Mccann MD CHEMISTRY ORDERABLES Performing Organization Address City/State/ZIP Code Phon e Number [address] CERNER MILLENNIUM POCT Glucose (06/19/2013 1:48 AM EST) athologist Signature POC Glucose 177 60 - 199 CERNER mg/dL MILLENNIUM Comment: Supplemental ranges: <110 mg/dL before meals <200 mg/dL all other times of the day Specimen Anatomical Collection Method Collection Time Receive d Time (Source) Location / / Volume Laterality Blood specimen 06/19/2013 1:48 AM 013 1:48 (specimen) EST AM EST Tammy Mccann MD POINT OF CARE TEST ORDERABLE S Performing Organization Address City/[facility]/ZIP Code Phon e Number [address] CERNER MILLENNIUM POCT Glucose (06/18/2013 11:44 PM EST) athologist Signature POC Glucose 175 60 - 199 CERNER mg/dL MILLENNIUM Comment: Supplemental ranges: <110 mg/dL before meals <200 mg/dL all other times of the day Specimen Anatomical Collection Method Collection Time Receive d Time (Source) Location / / Volume Laterality Blood specimen 06/18/2013 11:44 3 (specimen) PM EST 11:44 PM EST Tammy Mccann MD POINT OF CARE TEST ORDERABLE S Performing Organization Address City/State/ZIP Code Phon e Number [address] CERNER MILLENNIUM Potassium (06/18/2013 10:00 PM EST) athologist Signature Potassium 4.7 3.5 - 5.0 CERNER mmol/L MILLENNIUM Comment: Please note: ??Patients with WBC >100,00 0 may have falsely elevated Potassium levels. ??For accurate Potassium quantif ication in these patients send serum separator tube (gold top) for subsequent determinations. ??Contact the Clinical Chemistry Laboratory if there are any qu estions. Specimen Anatomical Collection Method Collection Time Receive d Time (Source) Location / / Volume Laterality Blood specimen 06/18/2013 10:00 3 (specimen) PM EST 10:05 PM EST Resulting Agency Comment Spec In Lab Tammy Mccann MD CHEMISTRY ORDERABLES Performing Organization Address City/[facility] Phon e Number [address] CERNER MILLENNIUM POCT Glucose (06/18/2013 9:59 PM EST) athologist Signature POC Glucose 163 60 - 199 CERNER mg/dL MILLENNIUM Comment: Supplemental ranges: <110 mg/dL before meals <200 mg/dL all other times of the day Specimen Anatomical Collection Method Collection Time Receive d Time (Source) Location / / Volume Laterality Blood specimen 06/18/2013 9:59 PM 013 9:59 (specimen) EST PM EST Tammy Mccann MD POINT OF CARE TEST ORDERABLE S Performing Organization Address City/[facility]/ZIP [place] [address] CERNER MILLENNIUM POCT Glucose (06/18/2013 9:34 PM EST) athologist Signature POC Glucose 180 60 - 199 CERNER mg/dL MILLENNIUM Comment: Supplemental ranges: <110 mg/dL before meals <200 mg/dL all other times of the day Specimen Anatomical Collection Method Collection Time Receive d Time (Source) Location / / Volume Laterality Blood specimen 06/18/2013 9:34 PM 013 9:34 (specimen) EST PM EST Tammy Mccann MD POINT OF CARE TEST ORDERABLE S Performing Organization Address City/[facility]/ZIP Code Phon e Number [address] CERNER MILLENNIUM POCT Glucose (06/18/2013 7:42 PM EST) athologist Signature POC Glucose 160 60 - 199 CERNER mg/dL MILLENNIUM Comment: Supplemental ranges: <110 mg/dL before meals <200 mg/dL all other times of the day Specimen Anatomical Collection Method Collection Time Receive d Time (Source) Location / / Volume Laterality Blood specimen 06/18/2013 7:42 PM 013 7:42 (specimen) EST PM EST Tammy Mccann MD POINT OF CARE TEST ORDERABLE S Performing Organization Address City/State/ZIP Code Phon e Number [address] CERNER MILLENNIUM POCT Glucose (06/18/2013 6:20 PM EST) athologist Signature POC Glucose 169 60 - 199 CERNER mg/dL ENNIUM Comment: Supplemental ranges: <110 mg/dL before meals <200 mg/dL all other times of the day Specimen Anatomical Collection Method Collection Time Receive d Time (Source) Location / / Volume Laterality Blood specimen 06/18/2013 6:20 PM 013 6:20 (specimen) EST PM EST Tammy Mccann MD POINT OF CARE TEST ORDERABLE S Performing Organization Address City/State/[place] [address] CERNER MILLENNIUM (ABNORMAL) Basic Metabolic Panel (non-fasting) (06/18/2013 6:20 PM EST) athologist Signature Glucose Lvl 171 60 - 199 CERNER mg/dL MILLENNIUM Comment: Diabetes: >=200 mg/dL plus symp toms BUN 24 (H) 10 - 20 mg/dL CERNER MILLENNIU M Creatinine 1.57 (H) 0.80 - 1.50 mg/dL CERNER MILL ENNIUM Comment: Please note that the pediatric reference intervals supplied above were not validated at [facility]. Results from pediatri c patients should be interpreted in conjunction to the patient's age, height and muscle mass. Sodium 138 135 - 145 mmol/L CERNER OMKAR NIUM Potassium 4.7 3.5 - 5.0 mmol/L CERNER OMKAR NIUM Comment: Please note: ??Patients with WBC >100,00 0 may have falsely elevated Potassium levels. ??For accurate Potassium quantif ication in these patients send serum separator tube (gold top) for subsequent determinations. ??Contact the Clinical Chemistry Laboratory if there are any qu estions. Chloride 116 (H) 98 - 107 mmol/L CERNER MILLENN IUM CO2 15 (L) 22 - 31 mmol/L CERNER MILLENNI UM Anion Gap 7 5 - 15 mmol/L CERNER MILLENNIU M Calcium 8.5 8.5 - 10.5 mg/dL CERNER OMKAR NIUM Estimated GFR 45 (L) >=60 CERNER MILLENNIU [...] Location / / Volume Laterality Blood specimen 06/18/2013 6:20 PM 013 6:24 (specimen) EST PM EST Resulting Agency Comment Spec In Lab Tammy Mccann MD CHEMISTRY ORDERABLES Performing Organization Address City/State/ZIP Code Phon e Number [place] [phone] CERNER MILLENNIUM POCT Glucose (06/18/2013 4:14 PM EST) P athologist Signature POC Glucose 175 60 - 199 CERNER mg/dL MILLENNIUM Comment: Supplemental ranges: <110 mg/dL before meals <200 mg/dL all other times of the day Specimen Anatomical Collection Method Collection Time Receive d Time (Source) Location / / Volume Laterality Blood specimen 06/18/2013 4:14 PM 013 4:14 (specimen) EST PM EST Tammy Mccann MD POINT OF CARE TEST ORDERABLE S Performing Organization Address City/[facility]/ZIP Code Phon e Number [address] CERNER MILLENNIUM Potassium (06/18/2013 2:05 PM EST) athologist Signature Potassium 4.9 3.5 - 5.0 CERNER mmol/L MILLENNIUM Comment: Please note: ??Patients with WBC >100,00 0 may have falsely elevated Potassium levels. ??For accurate Potassium quantif ication in these patients send serum separator tube (gold top) for subsequent determinations. ??Contact the Clinical Chemistry Laboratory if there are any qu estions. Specimen Anatomical Collection Method Collection Time Receive d Time (Source) Location / / Volume Laterality Blood specimen 06/18/2013 2:05 PM 013 2:33 (specimen) EST PM EST Resulting Agency Comment Spec In Lab Tammy Mccann MD CHEMISTRY ORDERABLES Performing Organization Address City/[facility]/ZIP Code Phon e Number [address] CERNER MILLENNIUM POCT Glucose (06/18/2013 2:02 PM EST) athologist Signature POC Glucose 182 60 - 199 CERNER mg/dL MILLENNIUM Comment: Supplemental ranges: <110 mg/dL before meals <200 mg/dL all other times of the day Specimen Anatomical Collection Method Collection Time Receive d Time (Source) Location / / Volume Laterality Blood specimen 06/18/2013 2:02 PM 013 2:02 (specimen) EST PM EST Tammy Mccann MD POINT OF CARE TEST ORDERABLE S Performing Organization Address City/[facility]/ZIP Code Phon e Number [address] CERNER MILLENNIUM POCT Glucose (06/18/2013 11:46 AM EST) athologist Signature POC Glucose 163 60 - 199 CERNER mg/dL MILLENNIUM Comment: Supplemental ranges: <110 mg/dL before meals <200 mg/dL all other times of the day Specimen Anatomical Collection Method Collection Time Receive d Time (Source) Location / / Volume Laterality Blood specimen 06/18/2013 11:46 3 (specimen) AM EST 11:46 AM EST Tammy Mccann MD POINT OF CARE TEST ORDERABLE S Performing Organization Address City/State/ZIP Code Phon e Number [place] [phone] SNTMNT XR VAS venous access (PICC placement) (06/18/2013 10:53 AM EST) Anatomical Region Laterality Modality N/A Radiographic Imaging Specimen (Source) Anatomical Collection Method Collection Time Re ceived Time Location / / Volume Laterality 06/18/2013 10:53 AM EST Narrative 06/18/2013 10:57 AM EST Examination PLACEMENT PICC LINE (IV TEAM) Over 5 yrs /XCARM Clinical History LAPROSCOPIC APPY- PICC NEEDED FOR VESICA NT Technique C-arm placement of a PICC line. Limited view of the line tip only. Findings The tip of the right-sided PICC catheter is tip superimposed over the SVC in satisfactory position. Procedure Note Van George MD - 06/18/2013Formatt ing of this note might be different from the original. Examination PLACEMENT PICC LINE (IV TEAM) Over 5 yrs /XCARM Clinical History LAPROSCOPIC APPY- PICC NEEDED FOR VESICA NT Technique C-arm placement of a PICC line. Limited view of the line tip only. Findings The tip of the right-sided PICC catheter is tip superimposed over the SVC in satisfactory position. Tammy Mccann MD IMG FLUORO ORDERABLES Vancomycin, trough (06/18/2013 9:55 AM EST) P athologist Signature Vanc Trough 15.4 mg/L [facility] [place] Comment: Therapeutic range for complicated infect ions such as bacteremia, endocarditis, osteomyelitis, meningitis, and hospital- acquired pneumonia caused by S. aureus: 15-20 mg/L Therapeutic range for other indications: 10-15 mg/L Toxic: >25mg/L Reference: Vancomycin Therapeutic Monitoring: Duncan winters and Recommendations from the ASHP, IDSA and SIDP Task Force. ??Am J Health- Syst Pharm. 2009; 66:82-98 Specimen Anatomical Collection Method Collection Time Receive d Time (Source) Location / / Volume Laterality Blood specimen 06/18/2013 9:55 AM 013 (specimen) EST 10:01 AM EST Resulting Agency Comment Spec In Lab Ev Buckner MD CHEMISTRY ORDERABLES Performing Organization Address City/State/ZIP Code Phon e Number [address] CERNER MILLENNIUM POCT Glucose (06/18/2013 9:53 AM EST) P athologist Signature POC Glucose 169 60 - 199 CERNER mg/dL MILLENNIUM Comment: Supplemental ranges: <110 mg/dL before meals <200 mg/dL all other times of the day Specimen Anatomical Collection Method Collection Time Receive d Time (Source) Location / / Volume Laterality Blood specimen 06/18/2013 9:53 AM 013 9:53 (specimen) EST AM EST Tammy Mccann MD POINT OF CARE TEST ORDERABLE S Performing Organization Address City/[facility]/ZIP Code Phon e Number [address] CERNER MILLENNIUM POCT Glucose (06/18/2013 9:30 AM EST) P athologist Signature POC Glucose 169 60 - 199 CERNER mg/dL MILLENNIUM Comment: Supplemental ranges: <110 mg/dL before meals <200 mg/dL all other times of the day Specimen Anatomical Collection Method Collection Time Receive d Time (Source) Location / / Volume Laterality Blood specimen 06/18/2013 9:30 AM 013 9:30 (specimen) EST AM EST Tammy Mccann MD POINT OF CARE TEST ORDERABLE S Performing Organization Address City/State/ZIP Code Phon e Number [address] CERNER MILLENNIUM Urine culture Indwelling Catheter Urine (06/18/2013 9:18 AM EST) [facility] gist Method Time Signature Urine Culture CERNER ? Patient Name: LEROY DAILEY ?Ordered By: TAMMY MCCANN ? MR#: [id number] ?LOC: ??ICUS ? /Sex: ??1955 (58 years), ? Male ? PROCEDURE: Urine Culture ?SOURCE: U CC ? COLLECTED: 06/18/2013 09:18 ? STARTED: 06/18/2013 10:03 ? FINAL REPORT ? Final Report ? Verified:06/19/2013 07:48 ? No growth (Less than 1,000 cfu/ml). ? Specimen (Source) Anatomical Collection Method Collection Time Re ceived Time Location / / Volume Laterality Urine specimen 06/18/2013 9:18 06/18/2013 obtained by clean AM EST 10:[address] catch procedure (specimen) Resulting Agency Comment Spec In Lab Tammy Mccann MD MICROBIOLOGY - GENERAL ORDER STEPHANIE Performing Organization Address City/State/[place] [address] HOLLI BALLARDIUM Lower Respiratory Culture Tracheal Aspirate (06/18/2013 9:18 AM EST) Component Value Ref Test Analysis Performed At [facility] Method Time Signature Lower CERNER Respiratory ? Patient Name: LEROY DAILEY ?Ordered By: TAMMY MCCANN Culture ? MR#: [id number] ?LOC: ??ICUS ? /Sex: ??1955 (58 years), ? Male ? PROCEDURE: Lower Respiratory Culture ?SOURCE: Trach Asp ? COLLECTED: 06/18/2013 09:18 ? STARTED: 06/18/2013 09:44 ? STAINS / PREPARATIONS ? Gram Stain Report ? Verified:06/18/2013 11:34 ? Many White Blood Cells seen ? No squamous epithelial cells seen ? No microorganisms seen. ? Useful clinical information is unlikely from specimen s in which no ? microorganisms are seen on Gram Stain, ? Culture not performed. ? Specimen (Source) Anatomical Collection Method Collection Time Re ceived Time Location / / Volume Laterality Specimen from 06/18/2013 9:18 06/18/2013 9:44 trachea obtained AM EST AM EST by aspiration (specimen) Resulting Agency Comment Spec In Lab Tammy Mccann MD MICROBIOLOGY - GENERAL ORDER STEPHANIE Performing Organization Address City/State/ZIP [place] [address] CERNER MILLENNIUM Lipase (06/18/2013 8:30 AM EST) P athologist Signature Lipase 9 0 - 60 CERNER unit/L MILLENNIUM Specimen Anatomical Collection Method Collection Time Receive d Time (Source) Location / / Volume Laterality Blood specimen 06/18/2013 8:30 AM 013 9:38 (specimen) EST AM EST Resulting Agency Comment Spec In Lab Ev Buckner MD CHEMISTRY ORDERABLES Performing Organization Address City/State/ZIP [place] [address] CERNER MILLENNIUM (ABNORMAL) Amylase (06/18/2013 8:30 AM EST) athologist Signature Amylase 8 (L) 28 - 100 CERNER unit/L MILLENNIUM Specimen Anatomical Collection Method Collection Time Receive d Time (Source) Location / / Volume Laterality Blood specimen 06/18/2013 8:30 AM 013 9:38 (specimen) EST AM EST Resulting Agency Comment Spec In Lab Ev Buckner MD CHEMISTRY ORDERABLES Performing Organization Address City/State/ZIP Code Phon e Number [address] CERNER MILLENNIUM (ABNORMAL) Comprehensive metabolic panel (non-fasting) (06/18/2013 8:30 AM EST) athologist Signature Glucose Lvl 164 60 - 199 CERNER mg/dL MILLENNIUM Comment: Diabetes: >=200 mg/dL plus symp toms BUN 25 (H) 10 - 20 mg/dL CERNER MILLENNIU M Creatinine 1.68 (H) 0.80 - 1.50 mg/dL CERNER MILL ENNIUM Comment: Please note that the pediatric reference intervals supplied above were not validated at [facility]. Results from pediatri c patients should be interpreted in conjunction to the patient's age, height and muscle mass. Sodium 140 135 - 145 mmol/L CERNER OMKAR NIUM Potassium 4.8 3.5 - 5.0 mmol/L CERNER OMKAR NIUM Comment: Please note: ??Patients with WBC >100,00 0 may have falsely elevated Potassium levels. ??For accurate Potassium quantif ication in these patients send serum separator tube (gold top) for subsequent determinations. ??Contact the Clinical Chemistry Laboratory if there are any qu estions. Chloride 116 (H) 98 - 107 mmol/L CERNER MILLENN IUM CO2 15 (L) 22 - 31 mmol/L CERNER MILLENNI UM Anion Gap 9 5 - 15 mmol/L CERNER MILLENNIU M Calcium 8.6 8.5 - 10.5 mg/dL CERNER OMKAR NIUM Total Protein 6.0 (L) 6.4 - 8.3 gm/dL CERNER MIL LENNIUM Albumin 2.3 (L) 3.2 - 5.2 gm/dL CERNER MILLENN IUM AST 12 0 - 39 unit/L CERNER MILLENNIU M ALT 12 0 - 55 unit/L CERNER MILLENNIU M Alk Phos 69 40 - 120 unit/L CERNER MILLENN IUM Total Bilirubin 0.7 0.2 - 1.3 mg/dL CERNER M ILLENNIUM Bili, Direct 0.3 0.0 - 0.3 mg/dL CERNER MILL ENNIUM Estimated GFR 42 (L) >=60 CERNER MILLENNIU M Comment: This [...] Location / / Volume Laterality Blood specimen 06/18/2013 8:30 AM 013 9:38 (specimen) EST AM EST Resulting Agency Comment Spec In Lab Ev Buckner MD CHEMISTRY ORDERABLES Performing Organization Address City/State/ZIP Code Phon e Number [place] [phone] CERNER MILLENNIUM POCT Glucose (06/18/2013 8:03 AM EST) P athologist Signature POC Glucose 167 60 - 199 CERNER mg/dL MILLENNIUM Comment: Supplemental ranges: <110 mg/dL before meals <200 mg/dL all other times of the day Specimen Anatomical Collection Method Collection Time Receive d Time (Source) Location / / Volume Laterality Blood specimen 06/18/2013 8:03 AM 013 8:03 (specimen) EST AM EST Tammy Mccann MD POINT OF CARE TEST ORDERABLE S Performing Organization Address City/State/Z[place] [address] CERNER MILLENNIUM POCT Glucose (06/18/2013 6:59 AM EST) P athologist Signature POC Glucose 168 60 - 199 CERNER mg/dL [facility] Comment: Supplemental ranges: <110 mg/dL before meals <200 mg/dL all other times of the day Specimen Anatomical Collection Method Collection Time Receive d Time (Source) Location / / Volume Laterality Blood specimen 06/18/2013 6:59 AM 013 6:59 (specimen) EST AM EST Tammy Mccann MD POINT OF CARE TEST ORDERABLE S Performing Organization Address City/State/ZIP Code Phon e Number [address] [facility] Urine culture Urine (06/18/2013 6:37 AM EST) Patholo gist Method Time Signature Urine Culture CERNER ? Patient Name: LEROY DAILEY ?Ordered By: TAMMY MCCANN [facility] ? MR#: [id number] ?LOC: ??ICUS ? /Sex: ??1955 (58 years), ? Male ? PROCEDURE: Urine Culture ?SOURCE: U [facility] ? COLLECTED: 06/18/2013 06:37 ? STARTED: 06/18/2013 07:39 ? FINAL REPORT ? Final Report ? Verified:06/19/2013 07:48 ? No growth (Less than 1,000 cfu/ml). ? Specimen (Source) Anatomical Collection Method Collection Time Re ceived Time Location / / Volume Laterality Urine specimen 06/18/2013 6:37 06/18/2013 7:39 obtained via AM EST AM EST indwelling urinary catheter (specimen) Resulting Agency Comment Spec In Lab Tammy Mccann MD MICROBIOLOGY - GENERAL ORDER STEPHANIE Performing Organization Address City/State/ZIP Code Phon e Number [place] [phone] CERNER MILLENNIUM (ABNORMAL) Urinalysis with microscopic (06/18/2013 6:37 AM EST) [facility] Method Time Signature Glucose UA Negative Negative CERNER mg/dL MILLENNIUM Protein UA Trace (A) Neg mg/dL CERNER MILLENNIUM Bilirubin UA Negative Negative CERNER mg/dL MILLENNIUM Comment: Clinical correlation required for positi ve Urine Bilirubin results as false positive may occur with some drugs and d rug related products. If a false positive is suspected a serum total bili reyna should be considered if clinically indicated. Urobilinogen UA Normal mg/dL CERNER MILLENN IUM pH UA 6.0 5.0 - 8.0 CERNER MILLENNIUM Blood UA Negative mg/dL CERNER MILLENNIUM Ketones UA Negative mg/dL CERNER MILLENNIUM Nitrite UA Negative CERNER MILLENNIUM Leukocytes UA Negative mcL CERNER MILLENNIU M Appearance UA Clear Clear CERNER MILLENNIU M Spec Jennings UA 1.011 1.002 - 1.030 CERNER MIL LENNIUM Color UA Yellow Yellow CERNER MILLENNIUM RBC UA 3 0 - 3 /HPF CERNER MILLENNIUM WBC UA 2 0 - 3 /HPF CERNER MILLENNIUM Bacteria UA Rare (A) None /HPF CERNER MILLENNIUM Specimen Anatomical Collection Method Collection Time Receive d Time (Source) Location / / Volume Laterality Urine specimen 06/18/2013 6:37 AM 013 6:50 (specimen) EST AM EST Resulting Agency Comment Spec In Lab Tammy Mccann MD URINE ORDERABLES Performing Organization Address City/State/ZIP Code Phon e Number [address] CERNER MILLENNIUM POCT Glucose (06/18/2013 6:12 AM EST) athologist Signature POC Glucose 152 60 - 199 CERNER mg/dL MILLENNIUM Comment: Supplemental ranges: <110 mg/dL before meals <200 mg/dL all other times of the day Specimen Anatomical Collection Method Collection Time Receive d Time (Source) Location / / Volume Laterality Blood specimen 06/18/2013 6:12 AM 013 6:12 (specimen) EST AM EST Tammy Mccann MD POINT OF CARE TEST ORDERABLE S Performing Organization Address City/State/ZIP Code Phon e Number [address] CERNER MILLENNIUM Differential, Automated (06/18/2013 6:10 AM EST) athologist Signature Neutrophils % 65.9 34.0 - CERNER 71.0 % MILLENNIUM Neutr Abs (ANC) 4.12 1.50 - CERNER 6.30 MILLENNIUM x10(3)/mcL Lymphocytes % 21.8 19.0 - CERNER 53.0 % MILLENNIUM Lymphocytes Abs 1.4 1.0 - 3.6 CERNER x10(3)/mcL MILLENNIUM Monocytes % 7.2 4.0 - 13.0 CERNER % MILLENNIUM Monocyte Abs 0.4 0.2 - 1.0 CERNER x10(3)/mcL MILLENNIUM Eosinophils % 4.6 0.0 - 7.0 CERNER % MILLENNIUM Eosinophils Abs 0.3 0.0 - 0.5 CERNER x10(3)/mcL MILLENNIUM Basophils % 0.3 0.0 - 2.0 CERNER % MILLENNIUM Basophils Abs 0.0 0.0 - 0.2 CERNER x10(3)/mcL MILLENNIUM Immature Gran % 0.20 0.00 - CERNER 0.66 % MILLENNIUM Comment: Immature granulocytes(IG's)percentage an d absolute count will include metamyelocytes, myelocytes, and promyelo cytes. Blood smears from CBCs yielding IG's will be scanned manually for concor danosvaldo. If this scan disagrees with the automated IG or if promyelocytes are not ed, a manual differential will be performed. Courtney Gran Abs 0.01 0.00 - 0.05 x10(3)/mcL CER NER [facility] Specimen Anatomical Collection Method Collection Time Receive d Time (Source) Location / / Volume Laterality Blood specimen 06/18/2013 6:10 AM 013 6:17 (specimen) EST AM EST Tammy Mccann MD HEMATOLOGY ORDERABLES Performing Organization Address City/State/ZIP Code Phon e Number [address] [facility] (ABNORMAL) Magnesium (06/18/2013 6:10 AM EST) athologist Signature Magnesium 0.62 (L) 0.69 - 1.07 CERNER mmol/L [facility] Specimen Anatomical Collection Method Collection Time Receive d Time (Source) Location / / Volume Laterality Blood specimen 06/18/2013 6:10 AM 013 6:17 (specimen) EST AM EST Resulting Agency Comment Spec In Lab Tammy Mccann MD CHEMISTRY ORDERABLES Performing Organization Address City/[facility]/ZIP Code Phon e Number [address] [facility] (ABNORMAL) BMP w/fasting Glucose (06/18/2013 6:10 AM EST) P athologist Signature Glucose 163 (H) 65 - 99 CERNER Fasting mg/dL [facility] Comment: ?Fasting* Glucose Interpretive C riteria Normal [...] of Diabetes Mellitus, Position Statement from the [place] [employer]. ??Diabete s Care, Volume 33, Supplement 1, Jul 2009 BUN 26 (H) 10 - 20 mg/dL CERNER MILLENNIU M Creatinine 1.59 (H) 0.80 - 1.50 mg/dL CERNER MILL ENNIUM Comment: Please note that the pediatric reference intervals supplied above were not validated at [facility]. Results from pediatri c patients should be interpreted in conjunction to the patient's age, height and muscle mass. Sodium 140 135 - 145 mmol/L CERNER OMKAR NIUM Potassium 4.9 3.5 - 5.0 mmol/L CERNER OMKAR NIUM Comment: Please note: ??Patients with WBC >100,00 0 may have falsely elevated Potassium levels. ??For accurate Potassium quantif ication in these patients send serum separator tube (gold top) for subsequent determinations. ??Contact the Clinical Chemistry Laboratory if there are any qu estions. Chloride 118 (H) 98 - 107 mmol/L CERNER MILLENN IUM CO2 15 (L) 22 - 31 mmol/L CERNER MILLENNI UM Anion Gap 7 5 - 15 mmol/L CERNER MILLENNIU M Calcium 8.4 (L) 8.5 - 10.5 mg/dL CERNER OMKAR NIUM Estimated GFR 45 (L) >=60 CERNER MILLENNIU [...] Location / / Volume Laterality Blood specimen 06/18/2013 6:10 AM 013 6:17 (specimen) EST AM EST Resulting Agency Comment Spec In Lab Tammy Mccann MD CHEMISTRY ORDERABLES Performing Organization Address City/State/ZIP Code Phon e Number [place] [phone] CERNER MILLENNIUM (ABNORMAL) CBC (with Diff) (06/18/2013 6:10 AM EST) P athologist Signature WBC 6.2 4.0 - 10.0 CERNER x10(3)/mcL MILLENNIUM RBC 2.93 (L) 4.63 - CERNER 6.08 MILLENNIUM x10(6)/mcL Hemoglobin 9.0 (L) 13.7 - CERNER 17.5 gm/dL MILLENNIUM Hematocrit 29.3 (L) 40.0 - CERNER 51.0 % MILLENNIUM MCV 100.0 (H) 79.0 - CERNER 92.0 fL MILLENNIUM MCH 30.7 25.6 - CERNER 32.2 pg MILLENNIUM MCHC 30.7 (L) 32.0 - CERNER 36.5 gm/dL MILLENNIUM Platelets 112 (L) 145 - 370 CERNER x10(3)/mcL MILLENNIUM RDWSD 53.4 (H) 35.0 - CERNER 46.0 fL MILLENNIUM RDWCV 14.7 (H) 10.9 - CERNER 14.4 % MILLENNIUM MPV 8.9 (L) 9.0 - 12.0 CERNER fL MILLENNIUM Specimen Anatomical Collection Method Collection Time Receive d Time (Source) Location / / Volume Laterality Blood specimen 06/18/2013 6:10 AM 013 6:17 (specimen) EST AM EST Resulting Agency Comment Spec In Lab Tammy Mccann MD HEMATOLOGY ORDERABLES Performing Organization Address City/State/ZIP Code Phon e Number [place] [phone] CERNER MILLENNIUM (ABNORMAL) BLOOD GAS 2 ARTERIAL (06/18/2013 6:08 AM EST) Analysis Performed At Patho logist Time Signature pH Art 7.39 CERNER MILLENNIUM pCO2 Art 27 (L) mmHg CERNER MILLENNIUM pO2 Art 104 mmHg CERNER MILLENNIUM HCO3 Art 15.7 (L) mmol/L CERNER MILLENNIUM BE Art -9.3 (L) mmol/L CERNER MILLENNIUM Hgb Blood Gas 9.8 (L) gm/dL CERNER MILLENNIUM Comment: Total Hemoglobin (in gm/dL) ?Based on [facility] Hematology ran ges: ?Age ?Referen ce Range Less than 3 days ?14.5 to 22.5 3 days to 2 weeks ? 12.5 to 20.5 2 weeks to 1 month ?10.0 to 18.0 1 to 6 months ?9.4 to 14 .0 6 months to 2 years ? 10.5 to 13.5 2 to 6 years ?11.5 to 13 .5 6 to 12 years ? 11.5 to 15. 5 12 to 18 years (female) 12.0 to 16.0 ? (male) ?? 13.0 to 16.0 > 18 years ? (female) 11.2 to 15.7 ? (male) ?? 13.7 to 17.5 O2HB Art 96.3 % CERNER MILLENNIUM COHB Art 0.5 % CERNER MILLENNIUM Comment: Nonsmokers: 0.5-1.5% COHB Smokers: Variable, but usually less than 10% Toxic: 20-30% COHB Lethal: Greater than 60% COHB METHB Art 0.3 % CERNER MILLENNIUM Na Whole Blood 140 mmol/L CERNER MILLENNI UM K Whole Blood 4.8 mmol/L CERNER MILLENNIU M Comment: Please note: Patients with WBC >100,000 may have falsely elevated Potassium levels. Contact the Clinical Chemistry L aboratory if there are any questions. ICa Whole Blood 1.26 mmol/L CERNER MILLENN IUM Comment: Reference Ranges: ?? < 19 yrs: 1.22 - 1.37 mmol/L ? Adults: 1.15 - 1.33 mmol/L Note: ??Total bilirubin higher than 20 m g/dL may lead to falsely low ionized calcium. CL Whole Blood 122 (H) mmol/L CERNER MILLENNI UM Gluc Whole Bld 161 mg/dL CERNER MILLENNI UM Comment: Diabetes: >=200 mg/dL plus symp toms. FIO2 Art 30 % CERNER MILLENNIUM PF Ratio Art 347 CERNER MILLENNIUM Specimen Anatomical Collection Method Collection Time Receive d Time (Source) Location / / Volume Laterality Blood specimen 06/18/2013 6:08 AM 013 6:08 (specimen) EST AM EST Tammy Mccann MD CHEMISTRY ORDERABLES Performing Organization Address City/State/ZIP Code Phon e Number [address] CERNER MILLENNIUM POCT Glucose (06/18/2013 4:18 AM EST) athologist Signature POC Glucose 156 60 - 199 CERNER mg/dL MILLENNIUM Comment: Supplemental ranges: <110 mg/dL before meals <200 mg/dL all other times of the day Specimen Anatomical Collection Method Collection Time Receive d Time (Source) Location / / Volume Laterality Blood specimen 06/18/2013 4:18 AM 013 4:18 (specimen) EST AM EST Tammy Mccann MD POINT OF CARE TEST ORDERABLE S Performing Organization Address City/[facility]/ZIP Code Phon e Number [address] CERNER MILLENNIUM POCT Glucose (06/18/2013 3:14 AM EST) athologist Signature POC Glucose 161 60 - 199 [facility]ERNER mg/dL [facility] Comment: Supplemental ranges: <110 mg/dL before meals <200 mg/dL all other times of the day Specimen Anatomical Collection Method Collection Time Receive d Time (Source) Location / / Volume Laterality Blood specimen 06/18/2013 3:14 AM 013 3:14 (specimen) EST AM EST Tammy Mccann MD POINT OF CARE TEST ORDERABLE S Performing Organization Address City/State/ZIP Code Phon e Number [address] CERNER MILLENNIUM POCT Glucose (06/18/2013 2:15 AM EST) athologist Signature POC Glucose 137 60 - 199 CERNER mg/dL [facility] Comment: Supplemental ranges: <110 mg/dL before meals <200 mg/dL all other times of the day Specimen Anatomical Collection Method Collection Time Receive d Time (Source) Location / / Volume Laterality Blood specimen 06/18/2013 2:15 AM 013 2:15 (specimen) EST AM EST Tammy Mccann MD POINT OF CARE TEST ORDERABLE S Performing Organization Address City/[facility]/ZIP [place] [address] CERNER MILLENNIUM (ABNORMAL) Magnesium (06/18/2013 2:15 AM EST) athologist Signature Magnesium 0.65 (L) 0.69 - 1.07 CERNER mmol/L [facility] Specimen Anatomical Collection Method Collection Time Receive d Time (Source) Location / / Volume Laterality Blood specimen 06/18/2013 2:15 AM 013 2:24 (specimen) EST AM EST Resulting Agency Comment Spec In Lab Tammy Mccann MD CHEMISTRY ORDERABLES Performing Organization Address City/[facility]/ZIP Code Phon e Number [address] CERNER MILLENNIUM (ABNORMAL) Potassium (06/18/2013 2:15 AM EST) athologist Signature Potassium 5.1 (H) 3.5 - 5.0 CERNER mmol/L [facility] Comment: Please note: ??Patients with WBC >100,00 0 may have falsely elevated Potassium levels. ??For accurate Potassium quantif ication in these patients send serum separator tube (gold top) for subsequent determinations. ??Contact the Clinical Chemistry Laboratory if there are any qu estions. Specimen Anatomical Collection Method Collection Time Receive d Time (Source) Location / / Volume Laterality Blood specimen 06/18/2013 2:15 AM 013 2:24 (specimen) EST AM EST Resulting Agency Comment Spec In Lab Tammy Mccann MD CHEMISTRY ORDERABLES Performing Organization Address City/[facility]/ZIP [place] [address] CERNER MILLENNIUM POCT Glucose (06/18/2013 1:06 AM EST) athologist Signature POC Glucose 187 60 - 199 CERNER mg/dL MILLENNIUM Comment: Supplemental ranges: <110 mg/dL before meals <200 mg/dL all other times of the day Specimen Anatomical Collection Method Collection Time Receive d Time (Source) Location / / Volume Laterality Blood specimen 06/18/2013 1:06 AM 013 1:06 (specimen) EST AM EST Tammy Mccann MD POINT OF CARE TEST ORDERABLE S Performing Organization Address City/State/ZIP Code Phon e Number [address] CERNER MILLENNIUM POCT Glucose (06/17/2013 11:57 PM EST) athologist Signature POC Glucose 133 60 - 199 CERNER mg/dL ENNIUM Comment: Supplemental ranges: <110 mg/dL before meals <200 mg/dL all other times of the day Specimen Anatomical Collection Method Collection Time Receive d Time (Source) Location / / Volume Laterality Blood specimen 06/17/2013 11:57 3 (specimen) PM EST 11:57 PM EST Tammy Mccann MD POINT OF CARE TEST ORDERABLE S Performing Organization Address City/[facility]/ZIP Code Phon e Number [address] CERNER MILLENNIUM POCT Glucose (06/17/2013 10:58 PM EST) athologist Signature POC Glucose 153 60 - 199 CERNER mg/dL ENNIUM Comment: Supplemental ranges: <110 mg/dL before meals <200 mg/dL all other times of the day Specimen Anatomical Collection Method Collection Time Receive d Time (Source) Location / / Volume Laterality Blood specimen 06/17/2013 10:58 3 (specimen) PM EST 10:58 PM EST Tammy Mccann MD POINT OF CARE TEST ORDERABLE S Performing Organization Address City/State/ZIP Code Phon e Number [address] CERNER MILLENNIUM (ABNORMAL) Potassium (06/17/2013 10:20 PM EST) athologist Signature Potassium 5.3 (H) 3.5 - 5.0 CERNER mmol/L [facility] Comment: Please note: ??Patients with WBC >100,00 0 may have falsely elevated Potassium levels. ??For accurate Potassium quantif ication in these patients send serum separator tube (gold top) for subsequent determinations. ??Contact the Clinical Chemistry Laboratory if there are any qu estions. Specimen Anatomical Collection Method Collection Time Receive d Time (Source) Location / / Volume Laterality Blood specimen 06/17/2013 10:20 3 (specimen) PM EST 10:25 PM EST Resulting Agency Comment Spec In Lab Tammy Mccann MD CHEMISTRY ORDERABLES Performing Organization Address City/[facility] Code Phon e Number [address] [facility] MILLENNIUM (ABNORMAL) Magnesium (06/17/2013 10:20 PM EST) athologist Signature Magnesium 0.62 (L) 0.69 - 1.07 CERNER mmol/L [facility] Specimen Anatomical Collection Method Collection Time Receive d Time (Source) Location / / Volume Laterality Blood specimen 06/17/2013 10:20 3 (specimen) PM EST 10:25 PM EST Resulting Agency Comment Spec In Lab Tammy Mccann MD CHEMISTRY ORDERABLES Performing Organization Address City/[facility]/ZIP [place] [address] CERNER MILLENNIUM POCT Glucose (06/17/2013 10:17 PM EST) athologist Signature POC Glucose 151 60 - 199 CERNER mg/dL [facility] Comment: Supplemental ranges: <110 mg/dL before meals <200 mg/dL all other times of the day Specimen Anatomical Collection Method Collection Time Receive d Time (Source) Location / / Volume Laterality Blood specimen 06/17/2013 10:17 3 (specimen) PM EST 10:17 PM EST Tammy Mccann MD POINT OF CARE TEST ORDERABLE S Performing Organization Address City/[facility]/ZIP [place] [address] CERNER MILLENNIUM POCT Glucose (06/17/2013 9:07 PM EST) P athologist Signature POC Glucose 135 60 - 199 CERNER mg/dL MILLENNIUM Comment: Supplemental ranges: <110 mg/dL before meals <200 mg/dL all other times of the day Specimen Anatomical Collection Method Collection Time Receive d Time (Source) Location / / Volume Laterality Blood specimen 06/17/2013 9:07 PM 013 9:07 (specimen) EST PM EST Tammy Mccann MD POINT OF CARE TEST ORDERABLE S Performing Organization Address City/State/ZIP Code Phon e Number [address] CERNER MILLENNIUM (ABNORMAL) BLOOD GAS 2 ARTERIAL (06/17/2013 8:48 PM EST) Patholo gist Method Time Signature pH Art 7.21 CERNER (Critical) MILLENNIUM pCO2 Art 45 mmHg CERNER MILLENNIUM pO2 Art 70 (L) mmHg CERNER MILLENNIUM HCO3 Art 17.6 (L) mmol/L CERNER MILLENNIUM BE Art -10.3 (L) mmol/L CERNER MILLENNIUM Hgb Blood Gas 11.0 (L) gm/dL CERNER MILLENNIUM Comment: Total Hemoglobin (in gm/dL) ?Based on [facility] Hematology ran ges: ?Age ?Referen ce Range Less than 3 days ?14.5 to 22.5 3 days to 2 weeks ? 12.5 to 20.5 2 weeks to 1 month ?10.0 to 18.0 1 to 6 months ?9.4 to 14 .0 6 months to 2 years ? 10.5 to 13.5 2 to 6 years ?11.5 to 13 .5 6 to 12 years ? 11.5 to 15. 5 12 to 18 years (female) 12.0 to 16.0 ? (male) ?? 13.0 to 16.0 > 18 years ? (female) 11.2 to 15.7 ? (male) ?? 13.7 to 17.5 O2HB Art 93.0 (L) % CERNER MILLENNIUM COHB Art 0.5 % CERNER MILLENNIUM Comment: Nonsmokers: 0.5-1.5% COHB Smokers: Variable, but usually less than 10% Toxic: 20-30% COHB Lethal: Greater than 60% COHB METHB Art 0.1 % CERNER MILLENNIUM Na Whole Blood 141 mmol/L CERNER MILLENNI UM K Whole Blood 5.6 (H) mmol/L CERNER MILLENNIU M Comment: Please note: Patients with WBC >100,000 may have falsely elevated Potassium levels. Contact the Clinical Chemistry L aboratory if there are any questions. ICa Whole Blood 1.32 mmol/L CERNER MILLENN IUM Comment: Reference Ranges: ?? < 19 yrs: 1.22 - 1.37 mmol/L ? Adults: 1.15 - 1.33 mmol/L Note: ??Total bilirubin higher than 20 m g/dL may lead to falsely low ionized calcium. CL Whole Blood 121 (H) mmol/L CERNER MILLENNI UM Gluc Whole Bld 174 mg/dL CERNER MILLENNI UM Comment: Diabetes: >=200 mg/dL plus symp toms. FIO2 Art 30 % CERNER MILLENNIUM PF Ratio Art 233 CERNER MILLENNIUM Specimen Anatomical Collection Method Collection Time Receive d Time (Source) Location / / Volume Laterality Blood specimen 06/17/2013 8:48 PM 013 8:48 (specimen) EST PM EST Tammy Mccann MD CHEMISTRY ORDERABLES Performing Organization Address City/State/ZIP [place] [address] CERNER MILLENNIUM POCT Glucose (06/17/2013 8:02 PM EST) athologist Signature POC Glucose 157 60 - 199 CERNER mg/dL MILLENNIUM Comment: Supplemental ranges: <110 mg/dL before meals <200 mg/dL all other times of the day Specimen Anatomical Collection Method Collection Time Receive d Time (Source) Location / / Volume Laterality Blood specimen 06/17/2013 8:02 PM 013 8:02 (specimen) EST PM EST Tammy Mccann MD POINT OF CARE TEST ORDERABLE S Performing Organization Address City/[facility]/ZIP Code Phon e Number [address] CERNER MILLENNIUM POCT Glucose (06/17/2013 6:43 PM EST) athologist Signature POC Glucose 155 60 - 199 CERNER mg/dL [facility] Comment: Supplemental ranges: <110 mg/dL before meals <200 mg/dL all other times of the day Specimen Anatomical Collection Method Collection Time Receive d Time (Source) Location / / Volume Laterality Blood specimen 06/17/2013 6:43 PM 013 6:43 (specimen) EST PM EST Tammy Mccann MD POINT OF CARE TEST ORDERABLE S Performing Organization Address City/[facility]/ZIP Code Phon e Number [address] CERNER MILLENNIUM Lactic acid, plasma (06/17/2013 6:15 PM EST) athologist Signature Lactate 0.5 0.5 - 2.2 CERNER mmol/L [facility] Specimen Anatomical Collection Method Collection Time Receive d Time (Source) Location / / Volume Laterality Blood specimen 06/17/2013 6:15 PM 013 6:19 (specimen) EST PM EST Resulting Agency Comment Spec In Lab Tammy Mccann MD CHEMISTRY ORDERABLES Performing Organization Address City/[facility]/ZIP Code Phon e Number [address] CERNER MILLENNIUM (ABNORMAL) BLOOD GAS 2 ARTERIAL (06/17/2013 6:05 PM EST) athologist Signature pH Art 7.11 CERNER (Critical) MILLENNIUM Comment: not noted. this is reprinted co py. original notation unknown pCO2 Art 54 (Critical) mmHg CERNER MILLENNIU M Comment: not noted. reprinted copy. orig inal notation unknown pO2 Art 108 (H) mmHg CERNER MILLENNIUM HCO3 Art 16.6 (L) mmol/L CERNER MILLENNIUM BE Art -12.9 (L) mmol/L CERNER MILLENNIUM Hgb Blood Gas 10.7 (L) gm/dL HOLLI Ramirez Comment: Total Hemoglobin (in gm/dL) ?Based on [facility] Hematology ran ges: ?Age ?Referen ce Range Less than 3 days ?14.5 to 22.5 3 days to 2 weeks ? 12.5 to 20.5 2 weeks to 1 month ?10.0 to 18.0 1 to 6 months ?9.4 to 14 .0 6 months to 2 years ? 10.5 to 13.5 2 to 6 years ?11.5 to 13 .5 6 to 12 years ? 11.5 to 15. 5 12 to 18 years (female) 12.0 to 16.0 ? (male) ?? 13.0 to 16.0 > 18 years ? (female) 11.2 to 15.7 ? (male) ?? 13.7 to 17.5 O2HB Art 96.3 % CERNER MILLENNIUM COHB Art 0.3 % CERNER MILLENNIUM Comment: Nonsmokers: 0.5-1.5% COHB Smokers: Variable, but usually less than 10% Toxic: 20-30% COHB Lethal: Greater than 60% COHB METHB Art 0.2 % CERNER MILLENNIUM Na Whole Blood 143 mmol/L CERNER MILLENNI UM K Whole Blood 5.0 mmol/L HOLLI BALLARDIU M Comment: Please note: Patients with WBC >100,000 may have falsely elevated Potassium levels. Contact the Clinical Chemistry L aboratory if there are any questions. ICa Whole Blood 1.23 mmol/L CERNER MILLENN IUM Comment: Reference Ranges: ?? < 19 yrs: 1.22 - 1.37 mmol/L ? Adults: 1.15 - 1.33 mmol/L Note: ??Total bilirubin higher than 20 m g/dL may lead to falsely low ionized calcium. CL Whole Blood 123 (H) mmol/L CERNER MILLENNI UM Gluc Whole Bld 166 mg/dL CERNER MILLENNI UM Comment: Diabetes: >=200 mg/dL plus symp toms. FIO2 Art 30 % CERNER MILLENNIUM PF Ratio Art 360 CERNER MILLENNIUM Specimen Anatomical Collection Method Collection Time Receive d Time (Source) Location / / Volume Laterality Blood specimen 06/17/2013 6:05 PM 013 6:05 (specimen) EST PM EST Tammy Mccann MD CHEMISTRY ORDERABLES Performing Organization Address [facility] [place] [address] CERNER MILLENNIUM (ABNORMAL) Calcium Ionized Whole Blood, ART (06/17/2013 5:45 PM EST) P athologist Signature ICa Whole 1.19 1.15 - CERNER Blood 1.33 MILLENNIUM mmol/L Comment: Reference Ranges: ?? < 19 yrs: 1.22 - 1.37 mmol/L ? Adults: 1.15 - 1.33 mmol/L Note: ??Total bilirubin higher than 20 m g/dL may lead to falsely low ionized calcium. pH Art 7.12 (Critical) 7.35 - 7.45 CERNER MILLE NNIUM Comment: called to kaushik rose at 3 17:59 by imke Specimen Anatomical Collection Method Collection Time Receive d Time (Source) Location / / Volume Laterality Blood specimen 06/17/2013 5:45 PM 013 5:53 (specimen) EST PM EST Resulting Agency Comment Spec In Lab Tammy Mccann MD CHEMISTRY ORDERABLES Performing Organization Address [facility] Phon e Number [address] CERNER MILLENNIUM Phosphorus (06/17/2013 5:45 PM EST) P athologist Signature Phosphorus 3.6 2.5 - 4.5 CERNER mg/dL [facility] Specimen Anatomical Collection Method Collection Time Receive d Time (Source) Location / / Volume Laterality Blood specimen 06/17/2013 5:45 PM 013 5:53 (specimen) EST PM EST Resulting Agency Comment Spec In Lab Tammy Mccann MD CHEMISTRY ORDERABLES Performing Organization Address City/[facility]/ZIP [place] [address] CERNER MILLENNIUM (ABNORMAL) Magnesium (06/17/2013 5:45 PM EST) athologist Signature Magnesium 0.55 (L) 0.69 - 1.07 CERNER mmol/L [facility] Specimen Anatomical Collection Method Collection Time Receive d Time (Source) Location / / Volume Laterality Blood specimen 06/17/2013 5:45 PM 013 5:53 (specimen) EST PM EST Resulting Agency Comment Spec In Lab Tammy Mccann MD CHEMISTRY ORDERABLES Performing Organization Address City/[facility]/ZIP Code Phon e Number [address] CERNER MILLENNIUM (ABNORMAL) BMP w/fasting Glucose (06/17/2013 5:45 PM EST) athologist Signature Glucose 181 (H) 65 - 99 CERNER Fasting mg/dL [facility] Comment: ?Fasting* Glucose Interpretive C riteria Normal [...] of Diabetes Mellitus, Position Statement from the [place] [employer]. ??Diabete s Care, Volume 33, Supplement 1, Jul 2009 BUN 27 (H) 10 - 20 mg/dL CERNER MILLENNIU M Creatinine 1.77 (H) 0.80 - 1.50 mg/dL CERNER MILL ENNIUM Comment: Please note that the pediatric reference intervals supplied above were not validated at [facility]. Results from pediatri c patients should be interpreted in conjunction to the patient's age, height and muscle mass. Sodium 139 135 - 145 mmol/L CERNER OMKAR NIUM Potassium 5.7 (H) 3.5 - 5.0 mmol/L CERNER OMKAR NIUM Comment: Please note: ??Patients with WBC >100,00 0 may have falsely elevated Potassium levels. ??For accurate Potassium quantif ication in these patients send serum separator tube (gold top) for subsequent determinations. ??Contact the Clinical Chemistry Laboratory if there are any qu estions. Chloride 114 (H) 98 - 107 mmol/L CERNER MILLENN IUM CO2 18 (L) 22 - 31 mmol/L CERNER MILLENNI UM Anion Gap 7 5 - 15 mmol/L CERNER MILLENNIU M Calcium 8.9 8.5 - 10.5 mg/dL CERNER OMKAR NIUM Estimated GFR 39 (L) >=60 CERNER MILLENNIU M Comment: This [...] Location / / Volume Laterality Blood specimen 06/17/2013 5:45 PM 013 5:53 (specimen) EST PM EST Resulting Agency Comment Spec In Lab Tammy Mccann MD CHEMISTRY ORDERABLES Performing Organization Address City/State/ZIP [place] [address] CERNER MILLENNIUM POCT Glucose (06/17/2013 5:19 PM EST) athologist Signature POC Glucose 169 60 - 199 CERNER mg/dL MILLENNIUM Comment: Supplemental ranges: <110 mg/dL before meals <200 mg/dL all other times of the day Specimen Anatomical Collection Method Collection Time Receive d Time (Source) Location / / Volume Laterality Blood specimen 06/17/2013 5:19 PM 013 5:19 (specimen) EST PM EST Tammy Mccann MD POINT OF CARE TEST ORDERABLE S Performing Organization Address City/State/ZIP Code Phon e Number [address] CERNER MILLENNIUM POCT Glucose (06/17/2013 4:11 PM EST) athologist Signature POC Glucose 191 60 - 199 CERNER mg/dL MILLENNIUM Comment: Supplemental ranges: <110 mg/dL before meals <200 mg/dL all other times of the day Specimen Anatomical Collection Method Collection Time Receive d Time (Source) Location / / Volume Laterality Blood specimen 06/17/2013 4:11 PM 013 4:11 (specimen) EST PM EST Tammy Mccann MD POINT OF CARE TEST ORDERABLE S Performing Organization Address City/State/ZIP Code Phon e Number [address] CERNER MILLENNIUM CT chest WO contrast (06/17/2013 3:37 PM EST) Anatomical Region Laterality Modality Chest Computed Tomography Specimen (Source) Anatomical Collection Method Collection Time Re ceived Time Location / / Volume Laterality 06/17/2013 3:37 PM EST Narrative 06/17/2013 5:[address] Chest Without Contrast Clinical History Possible pulmonary infectious source Comparison None Technique Unenhanced CT chest. Findings Nonspecific consolidative changes are se en in the posterior aspect of the right upper lobe, abutting the major fissure. ??These findings become more confluent and more severe along the inferior media l aspect of the right upper lobe lobe extending to the right hilum. ??Air bron chograms is seen extending through this area of consolidation. Indeterminate irregularly shaped bilobed nodular density is seen in the left lower lobe, abutting the pericardium, me asuring approximately 2.9 x 3.5 cm. ?? Mass lesion cannot be excluded. Mild bilateral pleural effusions. Scattered, borderline enlarged mediastin al lymph nodes are seen. ??No axillary adenopathy. A tracheostomy tube and nasogastric tube are noted. The osseous structures are unremarkable. Impression ? 1. Nonspecific, indeterminate rig ht upper lobe consolidation, as described, extending to the right hilum. ??A mass lesion cannot be excluded, however, this may represent scarring, fo gabriel atelectasis, and/or pneumonia. ? 2. Bilobed irregularly-shaped mas s like area of consolidation seen in left lower lobe. ??Cannot exclude neoplasm. ? ?Alternatively, this may represent rounded atelectasis and/or rounded pneum onia. ? 3. Mild bilateral pleural effusio ns. Procedure Note Alejo Miller MD - 06/17/2013Form atting of this note might be different from the original. Examination CT Chest Without Contrast Clinical History Possible pulmonary infectious source Comparison None Technique Unenhanced CT chest. Findings Nonspecific consolidative changes are se en in the posterior aspect of the right upper lobe, abutting the major fissure. These findings become more confluent and more severe along the inferior media l aspect of the right upper lobe lobe extending to the right hilum. Air bronch ograms is seen extending through this area of consolidation. Indeterminate irregularly shaped bilobed nodular density is seen in the left lower lobe, abutting the pericardium, me asuring approximately 2.9 x 3.5 cm. Mass lesion cannot be excluded. Mild bilateral pleural effusions. Scattered, borderline enlarged mediastin al lymph nodes are seen. No axillary adenopathy. A tracheostomy tube and nasogastric tube are noted. The osseous structures are unremarkable. Impression 1. Nonspecific, indeterminate right upp er lobe consolidation, as described, extending to the right hilum. A mass lesion cannot be excluded, however, this may represent scarring, fo gabriel atelectasis, and/or pneumonia. 2. Bilobed irregularly-shaped mass like area of consolidation seen in left lower lobe. Cannot exclude neoplasm. Alt ernatively, this may represent rounded atelectasis and/or rounded pneum onia. 3. Mild bilateral pleural effusions. Tammy Mccann MD IMG CT ORDERABLES POCT Glucose (06/17/2013 2:48 PM EST) athologist Signature POC Glucose 165 60 - 199 CERNER mg/dL MILLENNIUM Comment: Supplemental ranges: <110 mg/dL before meals <200 mg/dL all other times of the day Specimen Anatomical Collection Method Collection Time Receive d Time (Source) Location / / Volume Laterality Blood specimen 06/17/2013 2:48 PM 013 2:48 (specimen) EST PM EST Tammy Mccann MD POINT OF CARE TEST ORDERABLE S Performing Organization Address [facility]/ZIP [facility] [place] [address] CERNER MILLENNIUM (ABNORMAL) Potassium (06/17/2013 2:30 PM EST) athologist Signature Potassium 5.6 (H) 3.5 - 5.0 CERNER mmol/L MILLENNIUM Comment: Please note: ??Patients with WBC >100,00 0 may have falsely elevated Potassium levels. ??For accurate Potassium quantif ication in these patients send serum separator tube (gold top) for subsequent determinations. ??Contact the Clinical Chemistry Laboratory if there are any qu estions. Specimen Anatomical Collection Method Collection Time Receive d Time (Source) Location / / Volume Laterality Blood specimen 06/17/2013 2:30 PM 013 2:52 (specimen) EST PM EST Resulting Agency Comment Spec In Lab Tammy Mccann MD CHEMISTRY ORDERABLES Performing Organization Address City/[facility]/ZIP [place] [address] CERNER MILLENNIUM (ABNORMAL) POCT Glucose (06/17/2013 2:14 PM EST) athologist Signature POC Glucose 211 (H) 60 - 199 CERNER mg/dL MILLENNIUM Comment: Supplemental ranges: <110 mg/dL before meals <200 mg/dL all other times of the day Specimen Anatomical Collection Method Collection Time Receive d Time (Source) Location / / Volume Laterality Blood specimen 06/17/2013 2:14 PM 013 2:14 (specimen) EST PM EST Tammy Mccann MD POINT OF CARE TEST ORDERABLE S Performing Organization Address [facility]/ZIP [place] [address] CERNER MILLENNIUM (ABNORMAL) POCT Glucose (06/17/2013 1:02 PM EST) P athologist Signature POC Glucose 209 (H) 60 - 199 CERNER mg/dL MILLENNIUM Comment: Supplemental ranges: <110 mg/dL before meals <200 mg/dL all other times of the day Specimen Anatomical Collection Method Collection Time Receive d Time (Source) Location / / Volume Laterality Blood specimen 06/17/2013 1:02 PM 013 1:02 (specimen) EST PM EST Tammy Mccann MD POINT OF CARE TEST ORDERABLE S Performing Organization Address City/[facility]/ZIP Code Phon e Number [address] CERNER MILLENNIUM (ABNORMAL) POCT Glucose (06/17/2013 11:12 AM EST) P athologist Signature POC Glucose 223 (H) 60 - 199 CERNER mg/dL MILLENNIUM Comment: Supplemental ranges: <110 mg/dL before meals <200 mg/dL all other times of the day Specimen Anatomical Collection Method Collection Time Receive d Time (Source) Location / / Volume Laterality Blood specimen 06/17/2013 11:12 3 (specimen) AM EST 11:12 AM EST Tammy Mccann MD POINT OF CARE TEST ORDERABLE S Performing Organization Address City/[facility]/ZIP Code [place] [address] CERNER MILLENNIUM Tacrolimus level (06/17/2013 11:10 AM EST) P athologist Signature Tacrolimus Lvl 8.1 ng/mL CERNER MILLENNIUM Comment: Trough therapeutic: 5-15 ng/mL Specimen Anatomical Collection Method Collection Time Receive d Time (Source) Location / / Volume Laterality Blood specimen 06/17/2013 11:10 3 8:12 (specimen) AM EST AM EST Resulting Agency Comment Spec In Lab Tammy Mccann MD CHEMISTRY ORDERABLES Performing Organization Address City/State/ZIP Code Phon e Number SYLVIA GARRISON [facility] [address] [facility] Lower Respiratory Culture Tracheal Aspirate (06/17/2013 10:48 AM EST) Component Value Ref Test Analysis Performed At [facility] Range Method Time Signature Lower [facility] Respiratory ? Patient Name: LEROY DAILEY ?Ordered By: TAMMY MCCANN [facility] Culture ? MR#: [id number] ?LOC: ??ICUS ? /Sex: ??1955 (58 years), ? Male ? PROCEDURE: Lower Respiratory Culture ?SOURCE: Trach Asp ? COLLECTED: 06/17/2013 10:48 ? STARTED: 06/17/2013 11:46 ? STAINS / PREPARATIONS ? Gram Stain Report ? Verified:06/17/2013 14:28 ? Many White Blood Cells seen ? Few squamous epithelial cells seen ? Useful clinical information is unlikely from specimen s in which no ? microorganisms are seen on Gram Stain, ? Culture not performed. ? Specimen (Source) Anatomical Collection Method Collection Time Re ceived Time Location / / Volume Laterality Specimen from 06/17/2013 10:48 06/17/2013 trachea obtained AM EST 11:46 AM ES T by aspiration (specimen) Resulting Agency Comment Spec In Lab Tammy Mccann MD MICROBIOLOGY - GENERAL ORDER STEPHANIE Performing Organization Address City/State/ZIP [place] [address] CERNER MILLENNIUM (ABNORMAL) POCT Glucose (06/17/2013 8:40 AM EST) athologist Signature POC Glucose 215 (H) 60 - 199 CERNER mg/dL [facility] Comment: Supplemental ranges: <110 mg/dL before meals <200 mg/dL all other times of the day Specimen Anatomical Collection Method Collection Time Receive d Time (Source) Location / / Volume Laterality Blood specimen 06/17/2013 8:40 AM 013 8:40 (specimen) EST AM EST Tammy Mccann MD POINT OF CARE TEST ORDERABLE S Performing Organization Address City/State/ZIP Code Phon e Number [address] CERNER MILLENNIUM (ABNORMAL) Potassium (06/17/2013 8:35 AM EST) athologist [facility] Potassium 5.7 (H) 3.5 - 5.0 CERNER mmol/L [facility] Comment: Please note: ??Patients with WBC >100,00 0 may have falsely elevated Potassium levels. ??For accurate Potassium quantif ication in these patients send serum separator tube (gold top) for subsequent determinations. ??Contact the Clinical Chemistry Laboratory if there are any qu estions. Specimen Anatomical Collection Method Collection Time Receive d Time (Source) Location / / Volume Laterality Blood specimen 06/17/2013 8:35 AM 013 8:48 (specimen) EST AM EST Resulting Agency Comment Spec In Lab Tammy Mccann MD CHEMISTRY ORDERABLES Performing Organization Address City/State/ZIP [place] [address] CERNER MILLENNIUM POCT Glucose (06/17/2013 6:30 AM EST) athologist Signature POC Glucose 186 60 - 199 CERNER mg/dL [facility] Comment: Supplemental ranges: <110 mg/dL before meals <200 mg/dL all other times of the day Specimen Anatomical Collection Method Collection Time Receive d Time (Source) Location / / Volume Laterality Blood specimen 06/17/2013 6:30 AM 013 6:30 (specimen) EST AM EST Tammy Mccann MD POINT OF CARE TEST ORDERABLE S Performing Organization Address City/State/ZIP Code Phon e Number [address] CERNER MILLENNIUM (ABNORMAL) POCT Glucose (06/17/2013 3:55 AM EST) P athologist Signature POC Glucose 216 (H) 60 - 199 CERNER mg/dL MILLENNIUM Comment: Supplemental ranges: <110 mg/dL before meals <200 mg/dL all other times of the day Specimen Anatomical Collection Method Collection Time Receive d Time (Source) Location / / Volume Laterality Blood specimen 06/17/2013 3:55 AM 013 3:55 (specimen) EST AM EST Tammy Mccann MD POINT OF CARE TEST ORDERABLE S Performing Organization Address City/State/[place] [address] CERNER MILLENNIUM (ABNORMAL) Differential, Automated (06/17/2013 3:30 AM EST) Patholo gist Method Time Signature Neutrophils % 75.7 (H) 34.0 - CERNER 71.0 % MILLENNIUM Neutr Abs (ANC) 8.19 (H) 1.50 - CERNER 6.30 MILLENNIUM x10(3)/mc L Lymphocytes % 14.9 (L) 19.0 - CERNER 53.0 % MILLENNIUM Lymphocytes Abs 1.6 1.0 - 3.6 CERNER x10(3)/mc MILLENNIUM L Monocytes % 7.1 4.0 - CERNER 13.0 % MILLENNIUM Monocyte Abs 0.8 0.2 - 1.0 CERNER x10(3)/mc MILLENNIUM L Eosinophils % 2.0 0.0 - 7.0 CERNER % MILLENNIUM Eosinophils Abs 0.2 0.0 - 0.5 CERNER x10(3)/mc MILLENNIUM L Basophils % 0.1 0.0 - 2.0 CERNER % MILLENNIUM Basophils Abs 0.0 0.0 - 0.2 CERNER x10(3)/mc MILLENNIUM L Immature Gran % 0.20 0.00 - CERNER 0.66 % [facility] Comment: Immature granulocytes(IG's)percentage an d absolute count will include metamyelocytes, myelocytes, and promyelo cytes. Blood smears from CBCs yielding IG's will be scanned manually for concor dance. If this scan disagrees with the automated IG or if promyelocytes are not ed, a manual differential will be performed. Courtney Gran Abs 0.02 0.00 - 0.05 x10(3)/mcL CER NER [facility] Specimen Anatomical Collection Method Collection Time Receive d Time (Source) Location / / Volume Laterality Blood specimen 06/17/2013 3:30 AM 013 3:37 (specimen) EST AM EST Tammy Mccann MD HEMATOLOGY ORDERABLES Performing Organization Address [facility] Phon e Number [address] [facility] Vancomycin, trough (06/17/2013 3:30 AM EST) P athologist Signature Vanc Trough 20.4 mg/L [facility] Comment: Therapeutic range for complicated infect ions such as bacteremia, endocarditis, osteomyelitis, meningitis, and hospital- acquired pneumonia caused by S. aureus: 15-20 mg/L Therapeutic range for other indications: 10-15 mg/L Toxic: >25 mg/L Reference: Vancomycin Therapeutic Monitoring: Duncan winters and Recommendations from the ASHP, IDSA and SIDP Task Force. ??Am J Health- Syst Pharm. 2009; 66:82-98 Specimen Anatomical Collection Method Collection Time Receive d Time (Source) Location / / Volume Laterality Blood specimen 06/17/2013 3:30 AM 013 3:37 (specimen) EST AM EST Resulting Agency Comment Spec In Lab Ev Buckner MD CHEMISTRY ORDERABLES Performing Organization Address [facility]/ZIP [facility] Phon e Number [address] [facility] ([facility]NORMAL) CBC (with Diff) (06/17/2013 3:30 AM EST) P athologist Signature WBC 10.8 (H) 4.0 - 10.0 CERNER x10(3)/mcL MILLENNIUM RBC 3.27 (L) 4.63 - CERNER 6.08 MILLENNIUM x10(6)/mcL Hemoglobin 10.0 (L) 13.7 - CERNER 17.5 gm/dL MILLENNIUM Hematocrit 33.4 (L) 40.0 - CERNER 51.0 % MILLENNIUM MCV 102.1 (H) 79.0 - CERNER 92.0 fL MILLENNIUM MCH 30.6 25.6 - CERNER 32.2 pg MILLENNIUM MCHC 29.9 (L) 32.0 - CERNER 36.5 gm/dL MILLENNIUM Comment: Matches Previous Results Platelets 125 (L) 145 - 370 x10(3)/mcL CERNER [place] LLENNIUM RDWSD 55.0 (H) 35.0 - 46.0 fL CERNER MILLENNI UM RDWCV 14.8 (H) 10.9 - 14.4 % CERNER MILLENNIU M MPV 9.1 9.0 - 12.0 fL CERNER MILLENNIU M Specimen Anatomical Collection Method Collection Time Receive d Time (Source) Location / / Volume Laterality Blood specimen 06/17/2013 3:30 AM 013 3:37 (specimen) EST AM EST Resulting Agency Comment Spec In Lab Tammy Mccann MD HEMATOLOGY ORDERABLES Performing Organization Address City/State/ZIP Code Phon e Number [place] [id number] [facility] MILLENNIUM (ABNORMAL) Basic Metabolic Panel (non-fasting) (06/17/2013 3:30 AM EST) athologist Signature Glucose Lvl 215 (H) 60 - 199 CERNER mg/dL MILLENNIUM Comment: Diabetes: >=200 mg/dL plus symp toms BUN 32 (H) 10 - 20 mg/dL CERNER MILLENNIU M Creatinine 1.96 (H) 0.80 - 1.50 mg/dL CERNER MILL ENNIUM Comment: Please note that the pediatric reference intervals supplied above were not validated at [facility]. Results from pediatri c patients should be interpreted in conjunction to the patient's age, height and muscle mass. Sodium 140 135 - 145 mmol/L CERNER OMKAR NIUM Potassium 5.6 (H) 3.5 - 5.0 mmol/L CERNER OMKAR NIUM Comment: Please note: ??Patients with WBC >100,00 0 may have falsely elevated Potassium levels. ??For accurate Potassium quantif ication in these patients send serum separator tube (gold top) for subsequent determinations. ??Contact the Clinical Chemistry Laboratory if there are any qu estions. Chloride 116 (H) 98 - 107 mmol/L CERNER MILLENN IUM CO2 15 (L) 22 - 31 mmol/L CERNER MILLENNI UM Anion Gap 9 5 - 15 mmol/L CERNER MILLENNIU M Calcium 8.5 8.5 - 10.5 mg/dL CERNER OMKAR NIUM Estimated GFR 35 (L) >=60 CERNER MILLENNIU M Comment: This [...] Location / / Volume Laterality Blood specimen 06/17/2013 3:30 AM 013 3:37 (specimen) EST AM EST Resulting Agency Comment Spec In Lab Tmamy Mccann MD CHEMISTRY ORDERABLES Performing Organization Address City/State/ZIP [place] [address] CERNER MILLENNIUM POCT Glucose (06/17/2013 2:53 AM EST) athologist Signature POC Glucose 165 60 - 199 CERNER mg/dL MILLENNIUM Comment: Supplemental ranges: <110 mg/dL before meals <200 mg/dL all other times of the day Specimen Anatomical Collection Method Collection Time Receive d Time (Source) Location / / Volume Laterality Blood specimen 06/17/2013 2:53 AM 013 2:53 (specimen) EST AM EST Tammy Mccann MD POINT OF CARE TEST ORDERABLE S Performing Organization Address City/[facility]/ZIP [place] [address] [facility] EKG 12 Lead (06/17/2013 2:20 AM EST) Component Value Ref Range Test Analysis Performed Pathologis t Method Time At Signature Ventricular rate 66 BPM MUSE SYSTEM Atrial Rate 66 BPM MUSE SYSTEM P-R Interval 182 ms MUSE SYSTEM QRS Duration 104 ms MUSE SYSTEM Q-T Interval 406 ms MUSE SYSTEM QTC Calculated 425 ms MUSE SYSTEM (Bezet) Calculated P [place] 4 degrees MUSE SYSTEM Calculated R [place] -13 degrees MUSE SYSTEM Calculated T [place] 58 degrees MUSE SYSTEM INTERPRETATION Normal sinus rhythm MUSE SYSTEM Normal ECG When compared with ECG of 16-JUN-2013 12:45, (unconfirmed) No significant change was found Confirmed by MD Cal, Jono Miller ([id number]) on 06/17/2013 10:16: 48 AM Specimen Anatomical Collection Method Collection Time Receive d Time (Source) Location / / Volume Laterality 06/17/2013 2:20 AM 3 EST 10:16 AM EST Tammy Mccann MD ECG ORDERABLES Performing Organization Address City/[facility]/ZIP Code Phon e Number MUSE SYSTEM POCT Glucose (06/17/2013 1:11 AM EST) P athologist Signature POC Glucose 129 60 - 199 CERNER mg/dL IUM Comment: Supplemental ranges: <110 mg/dL before meals <200 mg/dL all other times of the day Specimen Anatomical Collection Method Collection Time Receive d Time (Source) Location / / Volume Laterality Blood specimen 06/17/2013 1:11 AM 013 1:11 (specimen) EST AM EST Tammy Mccann MD POINT OF CARE TEST ORDERABLE S Performing Organization Address City/[facility]/ZIP [place] [address] [facility] ([facility]NORMAL) Potassium (06/17/2013 12:15 AM EST) P athologist Signature Potassium 6.4 3.5 - 5.0 CERNER (Critical) mmol/L IUM Comment: Called by: RF, Read back by: MELLY Hayes, Date/Time:06/17/13 01:29. Please note: ??Patients with WBC >100,00 0 may have falsely elevated Potassium levels. ??For accurate Potassium quantif ication in these patients send serum separator tube (gold top) for subsequent determinations. ??Contact the Clinical Chemistry Laboratory if there are any qu estions. Specimen Anatomical Collection Method Collection Time Receive d Time (Source) Location / / Volume Laterality Blood specimen 06/17/2013 12:15 3 (specimen) AM EST 12:20 AM EST Resulting Agency Comment Spec In Lab Tammy Mccann MD CHEMISTRY ORDERABLES Performing Organization Address City/[facility]/ZIP Code Phon e Number [address] CERNER MILLENNIUM POCT Glucose (06/17/2013 12:01 AM EST) P athologist Signature POC Glucose 140 60 - 199 CERNER mg/dL MILLENNIUM Comment: Supplemental ranges: <110 mg/dL before meals <200 mg/dL all other times of the day Specimen Anatomical Collection Method Collection Time Receive d Time (Source) Location / / Volume Laterality Blood specimen 06/17/2013 12:01 3 (specimen) AM EST 12:01 AM EST Tammy Mccann MD POINT OF CARE TEST ORDERABLE S Performing Organization Address City/[facility]/ZIP Code Phon e Number [address] CERNER MILLENNIUM POCT Glucose (06/16/2013 11:05 PM EST) P athologist Signature POC Glucose 142 60 - 199 CERNER mg/dL MILLENNIUM Comment: Supplemental ranges: <110 mg/dL before meals <200 mg/dL all other times of the day Specimen Anatomical Collection Method Collection Time Receive d Time (Source) Location / / Volume Laterality Blood specimen 06/16/2013 11:05 3 (specimen) PM EST 11:05 PM EST Tammy Mccann MD POINT OF CARE TEST ORDERABLE S Performing Organization Address City/State/ZIP [place] [address] CERNER MILLENNIUM POCT Glucose (06/16/2013 10:06 PM EST) athologist Signature POC Glucose 118 60 - 199 CERNER mg/dL [facility] Comment: Supplemental ranges: <110 mg/dL before meals <200 mg/dL all other times of the day Specimen Anatomical Collection Method Collection Time Receive d Time (Source) Location / / Volume Laterality Blood specimen 06/16/2013 10:06 3 (specimen) PM EST 10:06 PM EST Tammy Mccann MD POINT OF CARE TEST ORDERABLE S Performing Organization Address City/State/ZIP Code Phon e Number [address] [facility] XR abdomen 1 view (06/16/2013 9:47 PM EST) Anatomical Region Laterality Modality Abdomen N/A Radiographic Imaging Specimen (Source) Anatomical Collection Method Collection Time Re ceived Time Location / / Volume Laterality 06/16/2013 9:47 PM EST Narrative 06/17/2013 8:20 AM EST Examination DIAG ABDOMEN SINGLE VIEW/XPORT Clinical History OG placement Comparison None Technique Findings Limited view abdomen. 0 G tube tip located at the GE junction. Visualized aspects of the abdominal vernon l gas pattern are unremarkable. Impression Procedure Note Alejo Miller MD - 06/17/2013Form atting of this note might be different from the original. Examination DIAG ABDOMEN SINGLE VIEW/XPORT Clinical History OG placement Comparison None Technique Findings Limited view abdomen. 0 G tube tip located at the GE junction. Visualized aspects of the abdominal vernon l gas pattern are unremarkable. Impression Tammy Mccann MD IMG DX ORDERABLES POCT Glucose (06/16/2013 9:44 PM EST) athologist Signature POC Glucose 119 60 - 199 CERNER mg/dL [facility] Comment: Supplemental ranges: <110 mg/dL before meals <200 mg/dL all other times of the day Specimen Anatomical Collection Method Collection Time Receive d Time (Source) Location / / Volume Laterality Blood specimen 06/16/2013 9:44 PM 013 9:44 (specimen) EST PM EST Tammy Mccann MD POINT OF CARE TEST ORDERABLE S Performing Organization Address City/State/ZIP [place] [address] CERNER MILLENNIUM POCT Glucose (06/16/2013 9:08 PM EST) athologist Signature POC Glucose 118 60 - 199 CERNER mg/dL [facility] Comment: Supplemental ranges: <110 mg/dL before meals <200 mg/dL all other times of the day Specimen Anatomical Collection Method Collection Time Receive d Time (Source) Location / / Volume Laterality Blood specimen 06/16/2013 9:08 PM 013 9:08 (specimen) EST PM EST Tammy Mccann MD POINT OF CARE TEST ORDERABLE S Performing Organization Address City/[facility]/ZIP Code Phon e Number [address] CERNER MILLENNIUM POCT Glucose (06/16/2013 7:51 PM EST) athologist Signature POC Glucose 133 60 - 199 CERNER mg/dL [facility] Comment: Supplemental ranges: <110 mg/dL before meals <200 mg/dL all other times of the day Specimen Anatomical Collection Method Collection Time Receive d Time (Source) Location / / Volume Laterality Blood specimen 06/16/2013 7:51 PM 013 7:51 (specimen) EST PM EST Tammy Mccann MD POINT OF CARE TEST ORDERABLE S Performing Organization Address City/[facility]/ZIP [place] [address] CERNER MILLENNIUM (ABNORMAL) Potassium (06/16/2013 7:50 PM EST) athologist Signature Potassium 5.8 (H) 3.5 - 5.0 CERNER mmol/L [facility] Comment: Please note: ??Patients with WBC >100,00 0 may have falsely elevated Potassium levels. ??For accurate Potassium quantif ication in these patients send serum separator tube (gold top) for subsequent determinations. ??Contact the Clinical Chemistry Laboratory if there are any qu estions. Specimen Anatomical Collection Method Collection Time Receive d Time (Source) Location / / Volume Laterality Blood specimen 06/16/2013 7:50 PM 013 8:01 (specimen) EST PM EST Resulting Agency Comment Spec In Lab Tammy Mccann MD CHEMISTRY ORDERABLES Performing Organization Address City/[facility] Phon e Number [address] CERNER MILLENNIUM Tacrolimus level (06/16/2013 7:50 PM EST) athologist Signature Tacrolimus Lvl 8.6 ng/mL CERNER MILLENNIUM Comment: Trough therapeutic: 5-15 ng/mL Specimen Anatomical Collection Method Collection Time Receive d Time (Source) Location / / Volume Laterality Blood specimen 06/16/2013 7:50 PM 013 8:12 (specimen) EST AM EST Resulting Agency Comment Spec In Lab Tammy Mccann MD CHEMISTRY ORDERABLES Performing Organization Address [facility] Phon e Number [address] CERNER MILLENNIUM POCT Glucose (06/16/2013 7:17 PM EST) athologist Signature POC Glucose 119 60 - 199 CERNER mg/dL MILLENNIUM Comment: Supplemental ranges: <110 mg/dL before meals <200 mg/dL all other times of the day Specimen Anatomical Collection Method Collection Time Receive d Time (Source) Location / / Volume Laterality Blood specimen 06/16/2013 7:17 PM 013 7:17 (specimen) EST PM EST Tammy Mccann MD POINT OF CARE TEST ORDERABLE S Performing Organization Address City/[facility] Phon e Number [address] CERNER MILLENNIUM POCT Glucose (06/16/2013 6:43 PM EST) athologist Signature POC Glucose 126 60 - 199 CERNER mg/dL MILLENNIUM Comment: Supplemental ranges: <110 mg/dL before meals <200 mg/dL all other times of the day Specimen Anatomical Collection Method Collection Time Receive d Time (Source) Location / / Volume Laterality Blood specimen 06/16/2013 6:43 PM 013 6:43 (specimen) EST PM EST Tammy Mccann MD POINT OF CARE TEST ORDERABLE S Performing Organization Address City/State/ZIP [place] [address] CERNER MILLENNIUM POCT Glucose (06/16/2013 5:49 PM EST) athologist Signature POC Glucose 145 60 - 199 CERNER mg/dL MILLENNIUM Comment: Supplemental ranges: <110 mg/dL before meals <200 mg/dL all other times of the day Specimen Anatomical Collection Method Collection Time Receive d Time (Source) Location / / Volume Laterality Blood specimen 06/16/2013 5:49 PM 013 5:49 (specimen) EST PM EST Tammy Mccann MD POINT OF CARE TEST ORDERABLE S Performing Organization Address City/[facility]/ZIP [place] [address] CERNER MILLENNIUM POCT Glucose (06/16/2013 4:10 PM EST) athologist Signature POC Glucose 162 60 - 199 CERNER mg/dL MILLENNIUM Comment: Supplemental ranges: <110 mg/dL before meals <200 mg/dL all other times of the day Specimen Anatomical Collection Method Collection Time Receive d Time (Source) Location / / Volume Laterality Blood specimen 06/16/2013 4:10 PM 013 4:10 (specimen) EST PM EST Tammy Mccann MD POINT OF CARE TEST ORDERABLE S Performing Organization Address City/State/ZIP [place] [address] CERNER MILLENNIUM Potassium (06/16/2013 4:00 PM EST) athologist Signature Potassium 4.9 3.5 - 5.0 CERNER mmol/L MILLENNIUM Comment: Please note: ??Patients with WBC >100,00 0 may have falsely elevated Potassium levels. ??For accurate Potassium quantif ication in these patients send serum separator tube (gold top) for subsequent determinations. ??Contact the Clinical Chemistry Laboratory if there are any qu estions. Specimen Anatomical Collection Method Collection Time Receive d Time (Source) Location / / Volume Laterality Blood specimen 06/16/2013 4:00 PM 013 4:11 (specimen) EST PM EST Resulting Agency Comment Spec In Lab Tammy Mccann MD CHEMISTRY ORDERABLES Performing Organization Address City/[facility]/ZIP Code Phon e Number [address] CERNER MILLENNIUM POCT Glucose (06/16/2013 3:01 PM EST) P athologist Signature POC Glucose 198 60 - 199 CERNER mg/dL MILLENNIUM Comment: Supplemental ranges: <110 mg/dL before meals <200 mg/dL all other times of the day Specimen Anatomical Collection Method Collection Time Receive d Time (Source) Location / / Volume Laterality Blood specimen 06/16/2013 3:01 PM 013 3:01 (specimen) EST PM EST Tammy Mccann MD POINT OF CARE TEST ORDERABLE S Performing Organization Address City/[facility]/ZIP Code Phon e Number [address] CERNER MILLENNIUM POCT Glucose (06/16/2013 2:34 PM EST) P athologist Signature POC Glucose 197 60 - 199 CERNER mg/dL MILLENNIUM Comment: Supplemental ranges: <110 mg/dL before meals <200 mg/dL all other times of the day Specimen Anatomical Collection Method Collection Time Receive d Time (Source) Location / / Volume Laterality Blood specimen 06/16/2013 2:34 PM 013 2:34 (specimen) EST PM EST Tammy Mccann MD POINT OF CARE TEST ORDERABLE S Performing Organization Address City/[facility]/ZIP Code Phon e Number [address] CERNER MILLENNIUM (ABNORMAL) POCT Glucose (06/16/2013 1:11 PM EST) P athologist Signature POC Glucose 299 (H) 60 - 199 CERNER mg/dL MILLENNIUM Comment: Supplemental ranges: <110 mg/dL before meals <200 mg/dL all other times of the day Specimen Anatomical Collection Method Collection Time Receive d Time (Source) Location / / Volume Laterality Blood specimen 06/16/2013 1:11 PM 013 1:11 (specimen) EST PM EST Tammy Mccann MD POINT OF CARE TEST ORDERABLE S Performing Organization Address City/State/ZIP Code Phon e Number [place] [phone] CERNER MILLENNIUM EKG 12 Lead (06/16/2013 12:45 PM EST) Component Value Ref Range Test Analysis Performed Pathologis t Method Time At Signature Ventricular rate 61 BPM MUSE SYSTEM Atrial Rate 61 BPM MUSE SYSTEM P-R Interval 178 ms MUSE SYSTEM QRS Duration 116 ms MUSE SYSTEM Q-T Interval 430 ms MUSE SYSTEM QTC Calculated 432 ms MUSE SYSTEM (Bezet) Calculated P [place] 63 degrees MUSE SYSTEM Calculated R [place] -21 degrees MUSE SYSTEM Calculated T [place] 56 degrees MUSE SYSTEM INTERPRETATION Normal sinus rhythm MUSE SYSTEM Normal ECG When compared with ECG of 16-JUN-2013 02:55, No significant change was found Confirmed by MD Cal, Jono Miller ([id number]) on 06/17/2013 9:47:3 6 AM Specimen Anatomical Collection Method Collection Time Receive d Time (Source) Location / / Volume Laterality 06/16/2013 12:45 06/17/2013 9:47 PM EST AM EST Tammy Mccann MD ECG ORDERABLES Performing Organization Address City/State/ZIP Code Phon e Number MUSE SYSTEM (ABNORMAL) BLOOD GAS 2 ARTERIAL (06/16/2013 12:24 PM EST) P athologist Signature pH Art 7.26 CERNER (Critical) MILLENNIUM Comment: Noted by chemist instrumentation. pCO2 Art 38 mmHg CERNER MILLENNIUM pO2 Art 209 (H) mmHg CERNER MILLENNIUM HCO3 Art 16.6 (L) mmol/L CERNER MILLENNIUM BE Art -10.6 (L) mmol/L CERNER MILLENNIUM Hgb Blood Gas 11.0 (L) gm/dL HOLLI Ramirez Comment: Total Hemoglobin (in gm/dL) ?Based on [facility] Hematology ran ges: ?Age ?Referen ce Range Less than 3 days ?14.5 to 22.5 3 days to 2 weeks ? 12.5 to 20.5 2 weeks to 1 month ?10.0 to 18.0 1 to 6 months ?9.4 to 14 .0 6 months to 2 years ? 10.5 to 13.5 2 to 6 years ?11.5 to 13 .5 6 to 12 years ? 11.5 to 15. 5 12 to 18 years (female) 12.0 to 16.0 ? (male) ?? 13.0 to 16.0 > 18 years ? (female) 11.2 to 15.7 ? (male) ?? 13.7 to 17.5 O2HB Art 97.9 (H) % CERNER MILLENNIUM COHB Art 0.6 % CERNER MILLENNIUM Comment: Nonsmokers: 0.5-1.5% COHB Smokers: Variable, but usually less than 10% Toxic: 20-30% COHB Lethal: Greater than 60% COHB METHB Art 0.2 % CERNER MILLENNIUM Na Whole Blood 139 mmol/L CERNER MILLENNI UM K Whole Blood 5.9 (H) mmol/L CERNER MILLENNIU M Comment: Please note: Patients with WBC >100,000 may have falsely elevated Potassium levels. Contact the Clinical Chemistry L aboratory if there are any questions. ICa Whole Blood 1.15 (L) mmol/L CERNER MILLENN IUM Comment: Reference Ranges: ?? < 19 yrs: 1.22 - 1.37 mmol/L ? Adults: 1.15 - 1.33 mmol/L Note: ??Total bilirubin higher than 20 m g/dL may lead to falsely low ionized calcium. CL Whole Blood 119 (H) mmol/L CERNER MILLENNI UM Gluc Whole Bld 268 (H) mg/dL CERNER MILLENNI UM Comment: Diabetes: >=200 mg/dL plus symp toms. FIO2 Art 60 % CERNER MILLENNIUM PF Ratio Art 348 CERNER MILLENNIUM Specimen Anatomical Collection Method Collection Time Receive d Time (Source) Location / / Volume Laterality Blood specimen 06/16/2013 12:24 3 (specimen) PM EST 12:24 PM EST Tammy Mccann MD CHEMISTRY ORDERABLES Performing Organization Address City/[facility]/ZIP Code Phon e Number [address] CERNER MILLENNIUM (ABNORMAL) POCT Glucose (06/16/2013 12:06 PM EST) athologist Signature POC Glucose 262 (H) 60 - 199 CERNER mg/dL MILLENNIUM Comment: Supplemental ranges: <110 mg/dL before meals <200 mg/dL all other times of the day Specimen Anatomical Collection Method Collection Time Receive d Time (Source) Location / / Volume Laterality Blood specimen 06/16/2013 12:06 3 (specimen) PM EST 12:06 PM EST Tammy Mccann MD POINT OF CARE TEST ORDERABLE S Performing Organization Address City/[facility]/ZIP Code Phon e Number [address] CERNER MILLENNIUM (ABNORMAL) Beta Hydroxybutyrate (06/16/2013 12:00 PM EST) athologist Signature BOHB 0.34 (H) 0.00 - 0.30 CERNER mmol/L MILLENNIUM Comment: Reference range: ??0.00-0.30 mmo1/L, bas ed on an overnight fast. ??Children may be higher. Specimen Anatomical Collection Method Collection Time Receive d Time (Source) Location / / Volume Laterality Blood specimen 06/16/2013 12:00 3 (specimen) PM EST 12:09 PM EST Resulting Agency Comment Spec In Lab Tammy Mccann MD CHEMISTRY ORDERABLES Performing Organization Address City/[facility]/ZIP Code Phon e Number [address] CERNER MILLENNIUM (ABNORMAL) Potassium (06/16/2013 12:00 PM EST) athologist Signature Potassium 5.4 (H) 3.5 - 5.0 CERNER mmol/L MILLENNIUM Comment: result rechecked- dmc Please note: ??Patients with WBC >100,00 0 may have falsely elevated Potassium levels. ??For accurate Potassium quantif ication in these patients send serum separator tube (gold top) for subsequent determinations. ??Contact the Clinical Chemistry Laboratory if there are any qu estions. Specimen Anatomical Collection Method Collection Time Receive d Time (Source) Location / / Volume Laterality Blood specimen 06/16/2013 12:00 3 (specimen) PM EST 12:09 PM EST Resulting Agency Comment Spec In Lab Tammy Mccann MD CHEMISTRY ORDERABLES Performing Organization Address City/State/ZIP Code Phon e Number [address] CERNER MILLENNIUM (ABNORMAL) POCT Glucose (06/16/2013 11:17 AM EST) P athologist Signature POC Glucose 270 (H) 60 - 199 CERNER mg/dL MILLENNIUM Comment: Supplemental ranges: <110 mg/dL before meals <200 mg/dL all other times of the day Specimen Anatomical Collection Method Collection Time Receive d Time (Source) Location / / Volume Laterality Blood specimen 06/16/2013 11:17 3 (specimen) AM EST 11:17 AM EST Tammy Mccann MD POINT OF CARE TEST ORDERABLE S Performing Organization Address City/[facility]/ZIP Code Phon e Number [address] CERNER MILLENNIUM (ABNORMAL) POCT Glucose (06/16/2013 9:57 AM EST) athologist Signature POC Glucose 294 (H) 60 - 199 CERNER mg/dL MILLENNIUM Comment: Supplemental ranges: <110 mg/dL before meals <200 mg/dL all other times of the day Specimen Anatomical Collection Method Collection Time Receive d Time (Source) Location / / Volume Laterality Blood specimen 06/16/2013 9:57 AM 013 9:57 (specimen) EST AM EST Tammy Mccann MD POINT OF CARE TEST ORDERABLE S Performing Organization Address City/[facility]/ZIP Code Phon e Number [address] CERNER MILLENNIUM XR chest PA or AP- 1 view (06/16/2013 8:32 AM EST) Anatomical Region Laterality Modality Chest N/A Radiographic Imaging Specimen (Source) Anatomical Collection Method Collection Time Re ceived Time Location / / Volume Laterality 06/16/2013 8:32 AM EST Narrative 06/16/2013 9:27 AM EST Examination CHEST AP/XPORT Clinical History ETT Placement ??TN Comparison None Technique Findings Endotracheal tube tip approximately 3 cm above the rubi. Prominent pulmonary vascular markings in the upper lobes bilaterally; possibly due to technique, however, cannot exclud e early pulmonary vascular hypertension. ??Clinical correlation. Impression Procedure Note Alejo Miller MD - 06/16/2013Form atting of this note might be different from the original. Examination CHEST AP/XPORT Clinical History ETT Placement TN Comparison None Technique Findings Endotracheal tube tip approximately 3 cm above the rubi. Prominent pulmonary vascular markings in the upper lobes bilaterally; possibly due to technique, however, cannot exclud e early pulmonary vascular hypertension. Clinical correlation. Impression Kathya Haddad MIXER OPERATOR HELPER HOT METAL IMG DX ORDERABLES XR abdomen 1 view (06/16/2013 8:31 AM EST) Anatomical Region Laterality Modality Abdomen N/A Radiographic Imaging Specimen (Source) Anatomical Collection Method Collection Time Re ceived Time Location / / Volume Laterality 06/16/2013 8:31 AM EST Narrative 06/16/2013 9:38 AM EST Examination DIAG ABDOMEN SINGLE VIEW/XPORT Clinical History OGT Placement ??TN Comparison None Technique Findings Limited study. ??OG tube not visualized on image. ?? Impression Procedure Note Alejo Miller MD - 06/16/2013Form atting of this note might be different from the original. Examination DIAG ABDOMEN SINGLE VIEW/XPORT Clinical History OGT Placement TN Comparison None Technique Findings Limited study. OG tube not visualized on image. Impression Kathya Mcgowanture MIXER OPERATOR HELPER HOT METAL IMG DX ORDERABLES (ABNORMAL) POCT Glucose (06/16/2013 8:01 AM EST) P athologist Signature POC Glucose 289 (H) 60 - 199 CERNER mg/dL [facility] Comment: Supplemental ranges: <110 mg/dL before meals <200 mg/dL all other times of the day Specimen Anatomical Collection Method Collection Time Receive d Time (Source) Location / / Volume Laterality Blood specimen 06/16/2013 8:01 AM 013 8:01 (specimen) EST AM EST Tammy Mccann MD POINT OF CARE TEST ORDERABLE S Performing Organization Address City/State/ZIP Code [place] [address] CERNER MILLENNIUM (ABNORMAL) BLOOD GAS 2 ARTERIAL (06/16/2013 7:55 AM EST) P athologist Signature pH Art 7.13 CERNER (Critical) MILLENNIUM Comment: Noted by chemist instrumentation. pCO2 Art 51 (Critical) mmHg DELLANER MILLENNIU M Comment: Noted by chemist instrumentation. pO2 Art 194 (H) mmHg CERNER MILLENNIUM HCO3 Art 16.6 (L) mmol/L CERNER MILLENNIUM BE Art -12.6 (L) mmol/L CERNER MILLENNIUM Hgb Blood Gas 11.6 (L) gm/dL HOLLI Ramirez Comment: Total Hemoglobin (in gm/dL) ?Based on [facility] Hematology ran ges: ?Age ?Referen ce Range Less than 3 days ?14.5 to 22.5 3 days to 2 weeks ? 12.5 to 20.5 2 weeks to 1 month ?10.0 to 18.0 1 to 6 months ?9.4 to 14 .0 6 months to 2 years ? 10.5 to 13.5 2 to 6 years ?11.5 to 13 .5 6 to 12 years ? 11.5 to 15. 5 12 to 18 years (female) 12.0 to 16.0 ? (male) ?? 13.0 to 16.0 > 18 years ? (female) 11.2 to 15.7 ? (male) ?? 13.7 to 17.5 O2HB Art 97.3 (H) % CERNER MILLENNIUM COHB Art 1.1 % CERNER MILLENNIUM Comment: Nonsmokers: 0.5-1.5% COHB Smokers: Variable, but usually less than 10% Toxic: 20-30% COHB Lethal: Greater than 60% COHB METHB Art 0.2 % CERNER MILLENNIUM Na Whole Blood 141 mmol/L CERNER MILLENNI UM K Whole Blood 6.5 (Critical) mmol/L CERNER MILL ENNIUM Comment: Noted by chemist instrumentation. Please note: Patients with WBC >100,000 may have falsely elevated Potassium levels. Contact the Clinical Chemistry L aboratory if there are any questions. ICa Whole Blood 1.17 mmol/L CERNER MILLENN IUM Comment: Reference Ranges: ?? < 19 yrs: 1.22 - 1.37 mmol/L ? Adults: 1.15 - 1.33 mmol/L Note: ??Total bilirubin higher than 20 m g/dL may lead to falsely low ionized calcium. CL Whole Blood 119 (H) mmol/L CERNER MILLENNI UM Gluc Whole Bld 286 (H) mg/dL CERNER MILLENNI UM Comment: Diabetes: >=200 mg/dL plus symp toms. FIO2 Art 75 % CERNER MILLENNIUM PF Ratio Art 259 CERNER MILLENNIUM Specimen Anatomical Collection Method Collection Time Receive d Time (Source) Location / / Volume Laterality Blood specimen 06/16/2013 7:55 AM 013 7:55 (specimen) EST AM EST Tammy Mccann MD CHEMISTRY ORDERABLES Performing Organization Address City/State/ZIP Code Phon e Number [place] [phone] CERNER MILLENNIUM (ABNORMAL) Differential, Automated (06/16/2013 7:00 AM EST) [facility] gist Method Time Signature Neutrophils % 74.7 (H) 34.0 - CERNER 71.0 % MILLENNIUM Neutr Abs (ANC) 15.70 (H) 1.50 - CERNER 6.30 MILLENNIUM x10(3)/mc L Lymphocytes % 16.4 (L) 19.0 - CERNER 53.0 % MILLENNIUM Lymphocytes Abs 3.4 1.0 - 3.6 CERNER x10(3)/mc MILLENNIUM L Monocytes % 7.9 4.0 - CERNER 13.0 % MILLENNIUM Monocyte Abs 1.6 (H) 0.2 - 1.0 CERNER x10(3)/mc MILLENNIUM L Eosinophils % 0.3 0.0 - 7.0 CERNER % MILLENNIUM Eosinophils Abs 0.1 0.0 - 0.5 CERNER x10(3)/mc MILLENNIUM L Basophils % 0.2 0.0 - 2.0 CERNER % MILLENNIUM Basophils Abs 0.0 0.0 - 0.2 CERNER x10(3)/mc MILLENNIUM L Immature Gran % 0.50 0.00 - CERNER 0.66 % MILLENNIUM Comment: Immature granulocytes(IG's)percentage an d absolute count will include metamyelocytes, myelocytes, and promyelo cytes. Blood smears from CBCs yielding IG's will be scanned manually for concor dance. If this scan disagrees with the automated IG or if promyelocytes are not ed, a manual differential will be performed. Courtney Gran Abs 0.10 (H) 0.00 - 0.05 x10(3)/mcL CER NER MILLENNIUM Specimen Anatomical Collection Method Collection Time Receive d Time (Source) Location / / Volume Laterality Blood specimen 06/16/2013 7:00 AM 013 7:05 (specimen) EST AM EST Kathya Haddad MIXER OPERATOR HELPER HOT METAL HEMATOLOGY ORDERABLES Performing Organization Address City/[facility]/ZIP Code Phon e Number [address] [facility] Lactic acid, plasma (06/16/2013 7:00 AM EST) P athologist Signature Lactate 0.7 0.5 - 2.2 CERNER mmol/L MILLENNIUM Specimen Anatomical Collection Method Collection Time Receive d Time (Source) Location / / Volume Laterality Blood specimen 06/16/2013 7:00 AM 013 7:05 (specimen) EST AM EST Resulting Agency Comment Spec In Lab Kathya Haddad MIXER OPERATOR HELPER HOT METAL CHEMISTRY ORDERABLES Performing Organization Address City/[facility]/ZIP Code Phon e Number [address] CERNER MILLENNIUM (ABNORMAL) Prothrombin Time (06/16/2013 7:00 AM EST) athologist Signature PT 17.2 (H) 12.0 - 15.0 CERNER sec MILLENNIUM Comment: [facility] Transfusion Committee Guidelines: I NR less than 2.0, PTT less than OR equal to 43.5 seconds, or Fibrinogen gre ater than or equal to 100 mg/dl indicate adequate procoagulant activity for hemostasis in patients without underlying bleeding disorders. INR 1.4 (H) 0.9 - 1.1 CERNER MILLENNIUM Specimen Anatomical Collection Method Collection Time Receive d Time (Source) Location / / Volume Laterality Blood specimen 06/16/2013 7:00 AM 013 7:05 (specimen) EST AM EST Resulting Agency Comment Spec In Lab Kathya Haddad CRNA HEMATOLOGY ORDERABLES Performing Organization Address City/State/ZIP [place] [address] [facility] (ABNORMAL) Comprehensive metabolic panel (non-fasting) (06/16/2013 7:00 AM EST) athologist Signature Glucose Lvl 280 (H) 60 - 199 CERNER mg/dL [facility] Comment: Diabetes: >=200 mg/dL plus symp toms BUN 37 (H) 10 - 20 mg/dL CERNER MILLENNIU M Creatinine 2.35 (H) 0.80 - 1.50 mg/dL CERNER MILL ENNIUM Comment: Please note that the pediatric reference intervals supplied above were not validated at [facility]. Results from pediatri c patients should be interpreted in conjunction to the patient's age, height and muscle mass. Sodium 138 135 - 145 mmol/L CERNER OMKAR NIUM Potassium 6.9 (Critical) 3.5 - 5.0 mmol/L CERNER M ILLENNIUM Comment: Results rechecked. Called by: Candelaria VERDIN ack by: Purnima Larose, Date/Time:06/16/13 08:00. Please note: ??Patients with WBC >100,00 0 may have falsely elevated Potassium levels. ??For accurate Potassium quantif ication in these patients send serum separator tube (gold top) for subsequent determinations. ??Contact the Clinical Chemistry Laboratory if there are any qu estions. Chloride 114 (H) 98 - 107 mmol/L CERNER MILLENN IUM CO2 15 (L) 22 - 31 mmol/L CERNER MILLENNI UM Anion Gap 9 5 - 15 mmol/L CERNER MILLENNIU M Calcium 8.0 (L) 8.5 - 10.5 mg/dL CERNER OMKAR NIUM Total Protein 7.1 6.4 - 8.3 gm/dL CERNER MIL LENNIUM Albumin 3.0 (L) 3.2 - 5.2 gm/dL CERNER MILLENN IUM AST 13 0 - 39 unit/L CERNER MILLENNIU M ALT 17 0 - 55 unit/L CERNER MILLENNIU M Alk Phos 86 40 - 120 unit/L CERNER MILLENN IUM Total Bilirubin 1.2 0.2 - 1.3 mg/dL CERNER M ILLENNIUM Bili, Direct 0.8 (H) 0.0 - 0.3 mg/dL CERNER MILL ENNIUM Comment: result rechecked-DA Estimated GFR 28 (L) >=60 CERNER MILLENNIU M Comment: This [...] Location / / Volume Laterality Blood specimen 06/16/2013 7:00 AM 013 7:05 (specimen) EST AM EST Resulting Agency Comment Spec In Lab Kathya Haddad CRNA CHEMISTRY ORDERABLES Performing Organization Address City/State/ZIP Code Phon e Number [place] [phone] CERNER MILLENNIUM (ABNORMAL) CBC (with Diff) (06/16/2013 7:00 AM EST) P athologist Signature WBC 21.0 (H) 4.0 - 10.0 CERNER x10(3)/mcL MILLENNIUM RBC 3.59 (L) 4.63 - CERNER 6.08 MILLENNIUM x10(6)/mcL Hemoglobin 11.4 (L) 13.7 - CERNER 17.5 gm/dL MILLENNIUM Hematocrit 36.6 (L) 40.0 - CERNER 51.0 % MILLENNIUM MCV 101.9 (H) 79.0 - CERNER 92.0 fL MILLENNIUM MCH 31.8 25.6 - CERNER 32.2 pg MILLENNIUM MCHC 31.1 (L) 32.0 - CERNER 36.5 gm/dL MILLENNIUM Platelets 158 145 - 370 CERNER x10(3)/mcL MILLENNIUM RDWSD 55.1 (H) 35.0 - CERNER 46.0 fL MILLENNIUM RDWCV 14.9 (H) 10.9 - CERNER 14.4 % MILLENNIUM MPV 8.8 (L) 9.0 - 12.0 CERNER fL MILLENNIUM Specimen Anatomical Collection Method Collection Time Receive d Time (Source) Location / / Volume Laterality Blood specimen 06/16/2013 7:00 AM 013 7:05 (specimen) EST AM EST Resulting Agency Comment Spec In Lab Kathya Haddad CRNA HEMATOLOGY ORDERABLES Performing Organization Address City/State/ZIP [place] [address] [facility] Surgical Pathology Report (06/16/2013 5:46 AM EST) Component Value Ref Test Analysis Performed At Patholo gist Range Method Time Signature Surgical CERNER Pathology ? [facility] Report ? Provider: ?? TAMMY MCCANN ?Pt. Name: ?? LEROY MOYER ? Acc #: ?[id number] ?Pt. MRN: ?[id number] ? Col Date: ?? 06/16/20 13 ?/Sex: ?1955,(58 years),Male ? Rec Date: ?? 06/18/2013 ?LOC: ?ICUS ? SURGICAL PATHOLOGY ? ---Pathologic Diagnosis--- ? A - Appendix, resection: ? Acute appendicitis. ? CR-0 ? 06/19/13 ? XL ? 06/19/13 Verified by: ? Cliff HAWK, Inna ? Pathologist ? (Electronic Si gnature) ? The attending pathologist whose signature appears o n this report has ? reviewed all diagnostic slides and has edited the maría ss and/or ? microscopic portion of the report in rendering the fi nal pathologic ? diagnosis. ? ---Gross Description--- ? A - Labeled/Fixative: Appendix, fresh. ? Quantity/Size: Single, 6.6 x 1.5 x 0.9 cm. ? Tissue Description: Intact appendix with a small amou nt of attached ? mesoappendix adipose tissue. ? Surface: Congested aiken-pink, focally with a white grumous exudate. ? Wall: Intact averaging 0.2 cm. ? Lumen: Patent, filled with soft fecal materi al and a fibropurulent ? exudate. ? Sections/Processing: Represented sections are s ubmitted. ??(R1) ??pps ? ---Clinical Information--- ? Specimen Submitted: ? A - Appendix ? Clinical History: ? Appendicitis ? Clinical Diagnosis: ? Appendicitis Specimen (Source) Anatomical Collection Method Collection Time Re ceived Time Location / / Volume Laterality 06/16/2013 5:46 AM EST Tammy Mccann MD PATHOLOGY/CYTOLOGY ORDERABLE S Performing Organization Address City/[facility]/ZIP [place] [address] CERNER MILLENNIUM Specimen to Pathology (surgical or derm) (06/16/2013 5:37 AM EST) Specimen Anatomical Collection Method Collection Time Receive d Time (Source) Location / / Volume Laterality AP Specimen 06/16/2013 5:37 AM 3 5:37 EST AM EST Narrative CERNER DOUGLASENNIUM - 06/16/2013 5:[address] Specimen requisition ordered. ??Separate Pathology report to follow Tammy Mccann MD PATHOLOGY/CYTOLOGY ORDERABLE S Performing Organization Address City/[facility]/ZIP [place] [address] CERNER MILLENNIUM (ABNORMAL) BLOOD GAS 2 ARTERIAL (06/16/2013 5:10 AM EST) athologist Signature pH Art 7.22 CERNER (Critical) MILLENNIUM Comment: Noted by chemist instrumentation. pCO2 Art 53 (Critical) mmHg [facility] Comment: Noted by chemist instrumentation. pO2 Art 134 (H) mmHg CERNER MILLENNIUM HCO3 Art 20.9 mmol/L CERNER MILLENNIUM BE Art -6.8 (L) mmol/L CERNER MILLENNIUM Hgb Blood Gas 11.6 (L) gm/dL DELLANER NELLIEIU M Comment: Total Hemoglobin (in gm/dL) ?Based on [facility] Hematology ran ges: ?Age ?Referen ce Range Less than 3 days ?14.5 to 22.5 3 days to 2 weeks ? 12.5 to 20.5 2 weeks to 1 month ?10.0 to 18.0 1 to 6 months ?9.4 to 14 .0 6 months to 2 years ? 10.5 to 13.5 2 to 6 years ?11.5 to 13 .5 6 to 12 years ? 11.5 to 15. 5 12 to 18 years (female) 12.0 to 16.0 ? (male) ?? 13.0 to 16.0 > 18 years ? (female) 11.2 to 15.7 ? (male) ?? 13.7 to 17.5 O2HB Art 96.9 % CERNER MILLENNIUM COHB Art 1.0 % CERNER MILLENNIUM Comment: Nonsmokers: 0.5-1.5% COHB Smokers: Variable, but usually less than 10% Toxic: 20-30% COHB Lethal: Greater than 60% COHB METHB Art 0.1 % CERNER MILLENNIUM Na Whole Blood 140 mmol/L CERNER MILLENNI UM K Whole Blood 5.7 (H) mmol/L CERNER MILLENNIU M Comment: Please note: Patients with WBC >100,000 may have falsely elevated Potassium levels. Contact the Clinical Chemistry L aboratory if there are any questions. ICa Whole Blood 1.24 mmol/L CERNER MILLENN IUM Comment: Reference Ranges: ?? < 19 yrs: 1.22 - 1.37 mmol/L ? Adults: 1.15 - 1.33 mmol/L Note: ??Total bilirubin higher than 20 m g/dL may lead to falsely low ionized calcium. CL Whole Blood 117 (H) mmol/L CERNER MILLENNI UM Gluc Whole Bld 271 (H) mg/dL CERNER MILLENNI UM Comment: Diabetes: >=200 mg/dL plus symp toms. Specimen Anatomical Collection Method Collection Time Receive d Time (Source) Location / / Volume Laterality Blood specimen 06/16/2013 5:10 AM 013 5:10 (specimen) EST AM EST Tammy Mccann MD CHEMISTRY ORDERABLES Performing Organization Address City/State/ZIP [place] [address] CERNER MILLENNIUM (ABNORMAL) Potassium (06/16/2013 3:49 AM EST) athologist Signature Potassium 6.2 3.5 - 5.0 CERNER (Critical) mmol/L MILLENNIUM Comment: Results rechecked. Called by: [facility], Read back by: Alondra Lino, Date/Time:06/16/13 04:24. Please note: ??Patients with WBC >100,00 0 may have falsely elevated Potassium levels. ??For accurate Potassium quantif ication in these patients send serum separator tube (gold top) for subsequent determinations. ??Contact the Clinical Chemistry Laboratory if there are any qu estions. Specimen Anatomical Collection Method Collection Time Receive d Time (Source) Location / / Volume Laterality Blood specimen 06/16/2013 3:49 AM 013 3:59 (specimen) EST AM EST Resulting Agency Comment Spec In Lab Tammy Mccann MD CHEMISTRY ORDERABLES Performing Organization Address City/State/ZIP Code Phon e Number [place] [phone] CERNER MILLENNIUM XR chest routine PA & lateral (06/16/2013 3:30 AM EST) Anatomical Region Laterality Modality Chest N/A Radiographic Imaging Specimen (Source) Anatomical Collection Method Collection Time Re ceived Time Location / / Volume Laterality 06/16/2013 3:30 AM EST Narrative 06/16/2013 7:46 AM EST Examination CHEST ROUTINE 2 VIEWS Clinical History prior pneumonia, coarse breath sounds Comparison June 15, 2013. Technique Findings No acute disease and no significant gomes ge since previous study. Impression Procedure Note Alejo Miller MD - 06/16/2013Form atting of this note might be different from the original. Examination CHEST ROUTINE 2 VIEWS Clinical History prior pneumonia, coarse breath sounds Comparison June 15, 2013. Technique Findings No acute disease and no significant gomes ge since previous study. Impression Tammy Mccann MD IMG DX ORDERABLES EKG 12 Lead (06/16/2013 2:55 AM EST) Component Value Ref Range Test Analysis Performed Pathologis t Method Time At Signature Ventricular rate 72 BPM MUSE SYSTEM Atrial Rate 72 BPM MUSE SYSTEM P-R Interval 210 ms MUSE SYSTEM QRS Duration 112 ms MUSE SYSTEM Q-T Interval 400 ms MUSE SYSTEM QTC Calculated 438 ms MUSE SYSTEM (Bezet) Calculated P [place] 54 degrees MUSE SYSTEM Calculated R [place] -16 degrees MUSE SYSTEM Calculated T [place] 50 degrees MUSE SYSTEM INTERPRETATION Sinus rhythm with 1st degree A-V block MUSE SYSTEM Otherwise normal ECG When compared with ECG of 22-JUN-2011 07:43, No significant change was found Confirmed by MD MARYANNE, BRO ([id number]) on 06/16/2013 1:16:3 5 PM Specimen Anatomical Collection Method Collection Time Receive d Time (Source) Location / / Volume Laterality 06/16/2013 2:55 AM 3 1:16 EST PM EST Tammy Mccann MD ECG ORDERABLES Performing Organization Address City/State/ZIP Code Phon e Number MUSE SYSTEM Blood culture (06/16/2013 2:00 AM EST) [facility] gist Method Time Signature Blood Culture CERNER ? Patient Name: LEROY DAILEY ?Ordered By: TAMMY MCCANN ENNIUM ? MR#: [id number] ?LOC: ??ICUS ? /Sex: ??1955 (58 years), ? Male ? PROCEDURE: Blood Culture ?SOURCE: Blood ? COLLECTED: 06/16/2013 02:00 ? STARTED: 06/16/2013 02:16 ? FINAL REPORT ? Final Report ? Verified:06/21/2013 15:01 ? No growth at 5 days. ? PRELIMINARY REPORT ? Preliminary Report ? Verified:06/20/2013 07:01 ? No growth at 4 days. ? Specimen Anatomical Collection Method Collection Time Receive d Time (Source) Location / / Volume Laterality Blood specimen 06/16/2013 2:00 AM 013 2:16 (specimen) EST AM EST Resulting Agency Comment Spec In Lab Tammy Mccann MD MICROBIOLOGY - BLOOD ORDERAB LES Performing Organization Address City/State/[place] [address] CERNER MILLENNIUM (ABNORMAL) Differential, Manual (06/16/2013 1:45 AM EST) [facility] gist Method Time Signature Neutrophil % 65 34 - 71 % CERNER MILLENNIUM Band % 10 0 - 12 % CERNER MILLENNIUM Lymphocyte % 17 (L) 19 - 53 % CERNER MILLENNIUM Monocyte % 7 4 - 13 % CERNER MILLENNIUM Eosinophil % 1 0 - 7 % CERNER MILLENNIUM Neutrophil Abs 14.1 (H) 1.5 - 6.3 CERNER x10(3)/mc MILLENNIUM L Band Abs 2.2 (H) 0.2 - 0.6 CERNER x10(3)/mc MILLENNIUM L Neutr Abs (ANC) 16.23 (H) 1.50 - CERNER 6.30 MILLENNIUM x10(3)/mc L Lymphocyte Abs 3.7 (H) 1.0 - 3.6 CERNER x10(3)/mc MILLENNIUM L Monocyte Abs 1.5 (H) 0.2 - 1.0 CERNER x10(3)/mc MILLENNIUM L Eosinophil Abs 0.2 0.0 - 0.5 CERNER x10(3)/mc MILLENNIUM L Tot Diff Cell [address] MILLENNIUM Plat Estimate Normal CERNER MILLENNIUM RBC Morphology Abnormal CERNER MILLENNIUM Macrocytes 1-5 /HPF CERNER MILLENNIUM Specimen Anatomical Collection Method Collection Time Receive d Time (Source) Location / / Volume Laterality Blood specimen 06/16/2013 1:45 AM 013 2:01 (specimen) EST AM EST Resulting Agency Comment Spec In Lab Tammy Mccann MD HEMATOLOGY ORDERABLES Performing Organization Address City/[facility]/ZIP [place] [address] CERNER MILLENNIUM Antibody screen (06/16/2013 1:45 AM EST) Analysis Performed At Patho logist Time Signature Ab Screen Negative [facility] Expires at [id number] [facility] [id number] on: [facility] Specimen Anatomical Collection Method Collection Time Receive d Time (Source) Location / / Volume Laterality Blood specimen 06/16/2013 1:45 AM 013 2:06 (specimen) EST AM EST Resulting Agency Comment Spec In Lab Tammy Mccann MD BLOOD BANK ORDERABLES Performing Organization Address City/State/[place] [address] [facility] ABO/Rh Typing (06/16/2013 1:45 AM EST) P athologist Signature ABORh Type O Pos [facility] Specimen Anatomical Collection Method Collection Time Receive d Time (Source) Location / / Volume Laterality Blood specimen 06/16/2013 1:45 AM 013 2:06 (specimen) EST AM EST Resulting Agency Comment Spec In Lab Tammy Mccann MD BLOOD BANK ORDERABLES Performing Organization Address City/State/ZIP Code Phon e Number [address] [facility] Gold Tube HOLD (06/16/2013 1:45 AM EST) P athologist Signature Gold Hold Sample in [facility]. [facility] Specimen Anatomical Collection Method Collection Time Receive d Time (Source) Location / / Volume Laterality Blood specimen 06/16/2013 1:45 AM 013 2:05 (specimen) EST AM EST Tammy Mccann MD CHEMISTRY ORDERABLES Performing Organization Address City/[facility]/ZIP [place] [address] [facility] Phosphorus (06/16/2013 1:45 AM EST) P athologist Signature Phosphorus 2.8 2.5 - 4.5 CERNER mg/dL [facility] Specimen Anatomical Collection Method Collection Time Receive d Time (Source) Location / / Volume Laterality Blood specimen 06/16/2013 1:45 AM 013 2:01 (specimen) EST AM EST Resulting Agency Comment Spec In Lab Tammy Mccann MD CHEMISTRY ORDERABLES Performing Organization Address City/[facility]/ZIP Code Phon e Number [address] CERNER MILLENNIUM (ABNORMAL) Magnesium (06/16/2013 1:45 AM EST) P athologist Signature Magnesium 0.58 (L) 0.69 - 1.07 CERNER mmol/L MILLENNIUM Specimen Anatomical Collection Method Collection Time Receive d Time (Source) Location / / Volume Laterality Blood specimen 06/16/2013 1:45 AM 013 2:01 (specimen) EST AM EST Resulting Agency Comment Spec In Lab Tammy Mccann MD CHEMISTRY ORDERABLES Performing Organization Address City/[facility]/ZIP Code Phon e Number [address] CERNER MILLENNIUM Lactic acid, plasma (06/16/2013 1:45 AM EST) P athologist Signature Lactate 0.8 0.5 - 2.2 CERNER mmol/L MILLENNIUM Specimen Anatomical Collection Method Collection Time Receive d Time (Source) Location / / Volume Laterality Blood specimen 06/16/2013 1:45 AM 013 2:02 (specimen) EST AM EST Resulting Agency Comment Spec In Lab Tammy Mccann MD CHEMISTRY ORDERABLES Performing Organization Address City/[facility]/ZIP [place] [address] CERNER MILLENNIUM (ABNORMAL) CMP w/fasting Glucose (06/16/2013 1:45 AM EST) P athologist Signature Glucose 197 (H) 65 - 99 CERNER Fasting mg/dL [...] of Diabetes Mellitus, Position Statement from the [place] [employer]. ??Diabete s Care, Volume 33, Supplement 1, Jul 2009 BUN 37 (H) 10 - 20 mg/dL CERNER MILLENNIU M Creatinine 2.51 (H) 0.80 - 1.50 mg/dL CERNER MILL ENNIUM Comment: Please note that the pediatric reference intervals supplied above were not validated at [facility]. Results from pediatri c patients should be interpreted in conjunction to the patient's age, height and muscle mass. Sodium 140 135 - 145 mmol/L CERNER OMKAR NIUM Potassium 6.9 (Critical) 3.5 - 5.0 mmol/L CERNER M ILLENNIUM Comment: Called by: carloz, Read back by: Karyn Grove, Date/Time:06/16/13 02:39. Please note: ??Patients with WBC >100,00 0 may have falsely elevated Potassium levels. ??For accurate Potassium quantif ication in these patients send serum separator tube (gold top) for subsequent determinations. ??Contact the Clinical Chemistry Laboratory if there are any qu estions. Chloride 112 (H) 98 - 107 mmol/L CERNER MILLENN IUM CO2 17 (L) 22 - 31 mmol/L CERNER MILLENNI UM Anion Gap 11 5 - 15 mmol/L CERNER MILLENNIU M Calcium 8.8 8.5 - 10.5 mg/dL CERNER OMKAR NIUM Total Protein 7.8 6.4 - 8.3 gm/dL CERNER MIL LENNIUM Albumin 3.5 3.2 - 5.2 gm/dL CERNER MILLENN IUM AST 14 0 - 39 unit/L CERNER MILLENNIU M ALT 15 0 - 55 unit/L CERNER MILLENNIU M Alk Phos 96 40 - 120 unit/L CERNER MILLENN IUM Total Bilirubin 0.9 0.2 - 1.3 mg/dL CERNER M ILLENNIUM Bili, Direct 0.4 (H) 0.0 - 0.3 mg/dL CERNER MILL ENNIUM Estimated GFR 26 (L) >=60 CERNER NEL M Comment: This estimated GFR (eGFR) value [...] Location / / Volume Laterality Blood specimen 06/16/2013 1:45 AM 013 2:01 (specimen) EST AM EST Resulting Agency Comment Spec In Lab Tammy Mccann MD CHEMISTRY ORDERABLES Performing Organization Address City/State/[place] [address] CERNER MILLENNIUM (ABNORMAL) CBC (with Diff) (06/16/2013 1:45 AM EST) P athologist Signature WBC 21.6 (H) 4.0 - 10.0 CERNER x10(3)/mcL MILLENNIUM RBC 3.72 (L) 4.63 - CERNER 6.08 MILLENNIUM x10(6)/mcL Hemoglobin 11.8 (L) 13.7 - CERNER 17.5 gm/dL MILLENNIUM Hematocrit 37.4 (L) 40.0 - CERNER 51.0 % MILLENNIUM MCV 100.5 (H) 79.0 - CERNER 92.0 fL MILLENNIUM MCH 31.7 25.6 - CERNER 32.2 pg MILLENNIUM MCHC 31.6 (L) 32.0 - CERNER 36.5 gm/dL MILLENNIUM Platelets 176 145 - 370 CERNER x10(3)/mcL MILLENNIUM RDWSD 53.1 (H) 35.0 - CERNER 46.0 fL MILLENNIUM RDWCV 14.5 (H) 10.9 - CERNER 14.4 % MILLENNIUM MPV 9.3 9.0 - 12.0 [facility] Specimen Anatomical Collection Method Collection Time Receive d Time (Source) Location / / Volume Laterality Blood specimen 06/16/2013 1:45 AM 013 2:01 (specimen) EST AM EST Resulting Agency Comment Spec In Lab Tammy Mccann MD HEMATOLOGY ORDERABLES Performing Organization Address City/State/ZIP Code Phon e Number [place] [phone] [facility] Request for 2nd read CT abdomen & pelvis (06/16/2013 1:05 AM EST) Anatomical Region Laterality Modality Abdomen, Pelvis Other Specimen (Source) Anatomical Collection Method Collection Time Re ceived Time Location / / Volume Laterality 06/16/2013 1:05 AM EST Narrative 06/16/2013 7:34 AM EST Examination OUTSIDE CT ABDOMEN PELVIS Clinical History fever, ? appendix inflammation vs divert iculosis; What Modality is the exam? CT Scan; Body Part (please add comments as necessary): abd/pelvis; I believe a reinterpretation of this exam may alter care of Patient. Yes Comparison None Technique Unenhanced CT of abdomen pelvis. ?? Findings ??lung bases: ??Normal. Limited evaluation of the solid internal abdominal viscera without intravenous contrast. The liver is enlarged, measuring 22.2 cm cranial-caudal dimension. ??No dilated biliary ducts or perihepatic fluid. ??Th e spleen is mildly enlarged, measuring 15.2 cm in cranial-caudal dimension. ??T here is mild fatty replacement of the pancreas. ??No peripancreatic inflammati on or dilated pancreatic duct. The gallbladder and adrenal glands are u nremarkable. The kidneys are atrophic bilaterally. ?? No hydronephrosis. No free fluid. ??No free air. A solitary , nonspecific isolated 16 mm mildly enlarged right parailiac lymph node is s een. ??Otherwise, no adenopathy. A transplant kidney is noted in the left lower quadrant. ??No transplant kidney hydronephrosis. The right lower quadrant is unremarkable . ??The appendix is not directly visualized, however, no evidence of acut e appendicitis. ??No loculated collection to suggest an abscess. ??No d iverticulitis. ??No small bowel obstruction or areas of abnormal small b owel wall thickening. Impression No acute intra-abdominal or intrapelvic process. ??No diverticulitis or appendicitis. 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 Hepatosplenomegaly. Procedure Note Alejo Miller MD - 06/16/2013Form atting of this note might be different from the original. Examination OUTSIDE CT ABDOMEN PELVIS Clinical History fever, ? appendix inflammation vs divert iculosis; What Modality is the exam? CT Scan; Body Part (please add comments as necessary): abd/pelvis; I believe a reinterpretation of this exam may alter care of Patient. Yes Comparison None Technique Unenhanced CT of abdomen pelvis. Findings lung bases: Normal. Limited evaluation of the solid internal abdominal viscera without intravenous contrast. The liver is enlarged, measuring 22.2 cm cranial-caudal dimension. No dilated biliary ducts or perihepatic fluid. The spleen is mildly enlarged, measuring 15.2 cm in cranial-caudal dimension. The re is mild fatty replacement of the pancreas. No peripancreatic inflammation or dilated pancreatic duct. The gallbladder and adrenal glands are u nremarkable. The kidneys are atrophic bilaterally. No hydronephrosis. No free fluid. No free air. A solitary, nonspecific isolated 16 mm mildly enlarged right parailiac lymph node is s een. Otherwise, no adenopathy. A transplant kidney is noted in the left lower quadrant. No transplant kidney hydronephrosis. The right lower quadrant is unremarkable . The appendix is not directly visualized, however, no evidence of acut e appendicitis. No loculated collection to suggest an abscess. No div erticulitis. No small bowel obstruction or areas of abnormal small b owel wall thickening. Impression No acute intra-abdominal or intrapelvic process. No diverticulitis or appendicitis. 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 Hepatosplenomegaly. Tammy Mccann MD IMG OUTSIDE INTERPRETATION O RDERABLES POCT Glucose (06/16/2013 12:59 AM EST) P athologist Signature POC Glucose 173 60 - 199 CERNER mg/dL [facility] Comment: Supplemental ranges: <110 mg/dL before meals <200 mg/dL all other times of the day Specimen Anatomical Collection Method Collection Time Receive d Time (Source) Location / / Volume Laterality Blood specimen 06/16/2013 12:59 3 (specimen) AM EST 12:59 AM EST Tammy Mccann MD POINT OF CARE TEST ORDERABLE S Performing Organization Address City/State/ZIP [place] [address] [facility] documented in this encounter Visit Diagnoses Diagnosis ?Appendicitis, sp appendectomy 06/16/13 - Primary Appendicitis, unqualified Abdominal pain, acute, right lower quadr ant Abdominal pain, right lower quadrant Fever Fever, unspecified 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 Type II or unspecified type diabetes fredo litus with renal manifestations, not stated as uncontrolled History of renal transplant Kidney replaced by transplant Immunosuppression Unspecified disorder of immune mechanism H/O kidney transplant Kidney replaced by transplant Intermittent fever of unknown origin Fever, unspecified Tremor/tics Abnormal involuntary movements Hyperglycemia Other abnormal glucose documented in this encounter Administered Medications Inactive Administered Medications - up to 3 most recent administrations Medication Order MAR Action Action Date Dose Rate Site albuterol (PROVENTIL HFA;VENTOLIN Given 06/20/2013 8:02 AM EST 6 puffs HFA) 90 mcg/actuation inhaler 6 puff 6 puff, Inhalation, EVERY 2 HOURS PRN, Starting on 06/16/13 at 0657, Until Tue06/20/13 at 1432, Wheezing, Patient on ventilator. , Routine Given 06/19/2013 3:37 AM EST 6 puffs Given 06/18/2013 11:35 PM EST 6 puffs albuterol (PROVENTIL) 2.5 mg /3 mL Given by Other 06/20/2013 2:30 P M EST 2.5 mg (0.083 %) nebulizer solution 1 dose, Starting on Tue06/20/13 at 1427, Until Tue06/20/13 at 1430, EV YU: cabinet override albuterol (PROVENTIL) nebulizer solution 2.5 Given 10/2012 12:34 AM EST 2.5 mg mg 2.5 mg, Nebulization, EVERY 2 HOURS PRN, Starting on Tue06/20/13 at 1432, Until Tue06/27/13 at 1417, Wheezing, Routine calcium gluconate 1g in sodium chloride Given 06/16/2013 3:3 0 AM EST 1 g 100 mL/hr 0.9% 100mL 1 g, Intravenous, ONCE, 1 dose, On 06/16/13 at 0330, Administer over 60 Minutes chlorhexidine (PERIDEX) 0.12 % oral solution Given 09/2012 9:20 PM EST 15 mLs 15 mL 15 mL, Oral, EVERY 12 HOURS SCHEDULED (2 times per day), First dose on 06/16/13 at 0900, Until Discontinued, To brush teeth, Routine Given 06/26/2013 9:26 AM EST 15 mLs Given 06/25/2013 9:00 PM EST 15 mLs ciprofloxacin (CIPRO) 200mg in Given 06/16/2013 2:52 AM EST 200 mg 100 mL/hr dextrose 5% 100mL 200 mg, Intravenous, EVERY 12 HOURS, First dose on 06/16/13 at 0230, Until Discontinued, Administer over 60 Minutes, Indication for (Active or Suspected): for GI/Intra-abdominal, Restricted Antibiotic: Please indicate the most appropriate choice: Off hour exemption (11PM - 7AM) dextrose 50% injection 50 mL Given 06/17/2013 2:30 AM EST 50 mLs 50 mL, Intravenous, ONCE, 1 dose, On 06/17/13 at 0230, Give with insulin., Routine DOPamine (INTROPIN) 600 Rate/Dose Change 06/16/2013 8:30 AM 6 mcg/k g/min 8.8 mL/hr mg in dextrose 5% 100 mL EST infusion 1-20 mcg/kg/min ? 147.2 kg (rounded to 1.5-29.4 mL/hr), Intravenous, CONTINUOUS, Starting on 06/16/13 at 0830, Until 06/16/13 at 0842 DOPamine 1,600 mcg/mL Rate/Dose Change 06/19/2013 1:42 PM 1 mcg/kg/ min 5.5 mL/hr (standard ADULT & Sam EST greater than 20kg) infusion 1-20 mcg/kg/min ? 147.2 kg (rounded to 5.5-110.4 mL/hr), Intravenous, CONTINUOUS, Starting on 06/16/13 at 0915, Until 06/20/13 at 1126, Initiate dopamine drip if Patient's systolic BP falls below 70 mmHG. Titrate to keep systolic BP above 90 mmHG. Increase in 2 mcg/kg/min increments. Do not exceed 20 mcg/kg/min. Discontinue dopamine if patient able to maintain systolic BP above 90 mmHG without dopamine infusion., Routine Rate/Dose Change 06/19/2013 11:01 AM EST 1.5 mcg/kg/min 8.3 mL/hr Rate/Dose Change 06/19/2013 10:41 AM EST 2 mcg/kg/min 11 mL/hr esomeprazole (NEXIUM) capsule 40 mg Given 06/22/2013 9:16 AM EST 40 mg 40 mg, Oral, DAILY, First dose on 06/16/13 at 0900, Until Discontinued, If unable to take PO, may give IV, Routine Given 06/21/2013 9:01 AM EST 40 mg Given 06/17/2013 9:00 AM EST 40 mg esomeprazole (NEXIUM) injection 40 mg Given 06/20/2013 9:30 AM EST 40 mg 40 mg, Intravenous, DAILY, First dose on 06/16/13 at 0900, Until Discontinued, Routine Given 06/19/2013 10:00 AM EST 40 mg Given 06/18/2013 9:33 AM EST 40 mg fentaNYL 2500mcg/50mL Rate/Dose Change 06/19/2013 7:37 AM 50 mcg/hr 1 mL/hr infusion EST 25-250 mcg/hr (rounded to 0.5-5 mL/hr), Intravenous, CONTINUOUS, Starting on 06/16/13 at 0730, Until 06/20/13 at 1126, Initial bolus dose: 25 mcg; IV once now followed by continuous infusion Continuous Infusion rate:25 mcg/hour; Reassess in 15 minutes If pain scale is greater than goal- Re-bolus dose: 25 mcg. Subsequent re-bolus doses 50% hourly rate (IV mcg) Followed by increase continuous infusion by 25%, reassess in 30 minutes. If pain scale is greater than ordered goal: Re-bolus with 50% of new hourly rate AND increase infusion by 25% Rate/Dose Verify 06/19/2013 6:00 AM EST 250 mcg/hr 5 mL/hr Rate/Dose Verify 06/19/2013 4:00 AM EST 100 mcg/hr 2 mL/hr fentaNYL 50mcg/mL injection Given 06/18/2013 4:20 PM EST 25 mcg 25 mcg, Intravenous, EVERY 1 HOUR PRN, Starting on 06/16/13 at 0658, Until Tue06/19/13 at 0106, Pain, PRN pain scale greater than goal or pre-procedure, Routine Given 06/17/2013 8:00 AM EST 25 mcg Bolus from Bag 06/17/2013 4:45 AM EST 25 mcg fentaNYL 50mcg/mL injection Bolus from Bag 06/18/2013 11:00 PM EST 50 mcg 125 mcg, Intravenous, EVERY 5 MIN PRN, 4 doses, Starting on Tue06/17/13 at 1623, Until Tue06/18/13 at 2300, Pain, Administer if needed when RASS +3 or +4, Routine Given 06/18/2013 10:10 PM EST 50 mcg Bolus from Bag 06/17/2013 5:00 PM EST 125 mcg fentaNYL 50mcg/mL injection Bolus from Bag 06/19/2013 1:06 AM EST 75 mcg 125 mcg, Intravenous, EVERY 5 MIN PRN, 4 doses, Starting on Tue06/17/13 at 1854, Until Lucie 06/21/13 at 1021, Pain, Administer if needed when RASS +3 or +4, Routine Bolus from Bag 06/18/2013 11:47 PM EST 25 mcg fentaNYL 50mcg/mL injection Bolus from Bag 06/20/2013 8:22 AM EST 75 mcg 25-75 mcg, Intravenous, EVERY 1 HOUR PRN, Starting on Tue06/19/13 at 0105, Until Lucie 06/21/13 at 1021, Pain, PRN pain scale greater than goal or pre-procedure, Routine Bolus from Bag 06/19/2013 5:25 AM EST 75 mcg Bolus from Bag 06/19/2013 3:00 AM EST 75 mcg fluticasone (FLONASE) 50 mcg/actuation Given 06/27/2013 8:55 AM EST 2 sprays nasal spray 2 spray 2 spray, Each Nare, DAILY, First dose on 06/16/13 at 0900, Until Discontinued, Routine Given 06/26/2013 9:21 AM EST 2 sprays Given 06/25/2013 8:27 AM EST 2 sprays folic acid (FOLVITE) tablet 1,000 mcg Given 06/22/2013 9:16 AM EST 1,000 mcg 1,000 mcg (1 mg), Oral, 2 TIMES DAILY, First dose on 06/16/13 at 0130, Until Discontinued, Routine Given 06/21/2013 8:46 PM EST 1,000 mcg Given 06/21/2013 9:01 AM EST 1,000 mcg furosemide (LASIX) 100 mg Rate/Dose Verify 06/20/2013 8:00 PM EST 2 mg/hr 2 mL/hr in sodium chloride 0.9% 100 mL infusion 2 mg/hr (rounded to 2 mL/hr), Intravenous, CONTINUOUS, Starting on Tue06/18/13 at 1815, Until Tue06/21/13 at 1014, Routine Rate/Dose Verify 06/20/2013 6:00 PM EST 2 mg/hr 2 mL/hr Rate/Dose Verify 06/20/2013 4:00 PM EST 2 mg/hr 2 mL/hr furosemide (LASIX) injection 20 mg Given 06/25/2013 4:54 PM EST 20 mg 20 mg, Intravenous, ONCE, 1 dose, On Tue06/25/13 at 1645 furosemide (LASIX) injection 20 mg Given 06/27/2013 10:50 AM EST 20 mg 20 mg, Intravenous, ONCE, 1 dose, On Tue06/27/13 at 0830 heparin (porcine) Given 06/21/2013 9:01 AM 5,000 Units Right Lower subcutaneous injection EST Qu adrant 5,000 Units 5,000 Units, Subcutaneous, EVERY 12 HOURS SCHEDULED (2 times per day), First dose on 06/16/13 at 0900, Until Discontinued, Routine Given 06/20/2013 8:27 PM EST 5,000 Units Given 06/20/2013 9:30 AM EST 5,000 Units Right Lower Quadrant heparin (porcine) subcutaneous injection Given 013 6:00 AM EST 5,000 Units 5,000 Units 5,000 Units, Subcutaneous, EVERY 8 HOURS SCHEDULED, First dose (after last modification) on Lucie 06/21/13 at 1400, Until Discontinued, Routine Given 06/26/2013 9:20 PM EST 5,000 Units Given 06/26/2013 1:21 PM EST 5,000 Units hydrALAZINE (APRESOLINE) injection 10 mg Given 06/21/2013 3:20 PM EST 10 mg 10 mg, Intravenous, EVERY 6 HOURS PRN, Starting on Lucie 06/21/13 at 1019, Until Tue06/21/13 at 1548, High Blood Pressure, SBP > 140 hydrALAZINE (APRESOLINE) tablet 25 mg Given 06/24/2013 8:46 PM EST 25 mg 25 mg, Oral, 4 TIMES DAILY, First dose on Tue06/24/13 at 1300, Until Discontinued, Take with Food, Routine Given 06/24/2013 6:00 PM EST 25 mg Given 06/24/2013 1:34 PM EST 25 mg hydrALAZINE (APRESOLINE) tablet 50 mg Given 06/27/2013 9:00 AM EST 50 mg 50 mg, Oral, 4 TIMES DAILY, First dose (after last modification) on Tue06/25/13 at 0900, Until Discontinued, Take with Food, Routine Given 06/26/2013 9:20 PM EST 50 mg Given 06/26/2013 4:50 PM EST 50 mg insulin aspart (novoLOG) PEN injection 0-20 Given 10/2012 11:52 AM EST 7 Units Units 0-20 Units, Subcutaneous, 3 TIMES DAILY WITH MEALS, First dose on Tue06/23/13 at 2015, Until Discontinued, [employer] Give 1 unit for every 4 grams carbohydrate. Hold if not eating, Routine Given 06/27/2013 8:50 AM EST 13 Units Given 06/26/2013 5:00 PM EST 12 Units insulin aspart (novoLOG) PEN injection 2-8 Given 06/22 10:19 PM EST 8 Units Units 2-8 Units, Subcutaneous, EVERY 4 HOURS SCHEDULED, First dose on Tue06/22/13 at 1615, Until Discontinued, CORRECTION BOLUS Moderate BG 140 - 160 Give 2 units BG 161 - 200 Give 4 units BG 201 - 240 Give 6 units BG greater than 240, give 8 units and recheck BG in 2 hours. If BG remains greater than 240, repeat 8 units (no more than three times) & call for new basal insulin orders. If less than 240 after two hours, give no insulin and resume prior schedule., Routine Given 06/22/2013 8:00 PM EST 8 Units Given 06/22/2013 5:27 PM EST 6 Units insulin aspart (novoLOG) PEN injection Given 06/21/2013 11:50 AM EST 12 Units 3-12 Units 3-12 Units, Subcutaneous, EVERY 4 HOURS SCHEDULED, First dose on Tue06/20/13 at 1200, Until Discontinued, 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 TDD (total daily dose of all insulin needed to achieve glycemic control) greater than 60 units BG 140 - 160 Give 3 units BG 161 - 200 Give 6 units BG 201 - 240 Give 9 units BG greater than 240, give 12 units and recheck BG in 2 hours. If BG remains greater than 240, repeat 12 units (no more than three times) & call for new basal insulin orders. If less than 240 after two hours, give no insulin and resume prior schedule., Routine Given 06/21/2013 7:59 AM EST 9 Units Given 06/21/2013 6:46 AM EST 9 Units insulin aspart (novoLOG) PEN injection 3-12 Given 05/27 3:53 PM EST 12 Units Units 3-12 Units, Subcutaneous, EVERY 4 HOURS SCHEDULED, First dose on 06/23/13 at 0200, Until Discontinued, 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 TDD (total daily dose of all insulin needed to achieve glycemic control) greater than 60 units BG 140 - 160 Give 3 units BG 161 - 200 Give 6 units BG 201 - 240 Give 9 units BG greater than 240, give 12 units and recheck BG in 2 hours. If BG remains greater than 240, repeat 12 units (no more than three times) & call for new basal insulin orders. If less than 240 after two hours, give no insulin and resume prior schedule., Routine Given 06/23/2013 1:30 PM EST 12 Units Given 06/23/2013 8:41 AM EST 12 Units insulin aspart (novoLOG) PEN injection 3-12 Given 10/2012 11:52 AM EST 6 Units Units 3-12 Units, Subcutaneous, EVERY 4 HOURS SCHEDULED, First dose on 06/23/13 at 2015, Until Discontinued, 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 TDD (total daily dose of all insulin needed to achieve glycemic control) greater than 60 units BG 140 - 160 Give 3 units BG 161 - 200 Give 6 units BG 201 - 240 Give 9 units BG greater than 240, give 12 units and recheck BG in 2 hours. If BG remains greater than 240, repeat 12 units (no more than three times) & call for new basal insulin orders. If less than 240 after two hours, give no insulin and resume prior schedule., Routine Given 06/27/2013 4:00 AM EST 3 Units Given 06/27/2013 12:00 AM EST 4 Units insulin detemir (LEVEMIR) PEN injection 50 Given 06/27 8:51 AM EST 50 Units Units 50 Units, Subcutaneous, 2 TIMES DAILY, First dose (after last modification) on 06/24/13 at 0900, Until Discontinued, Routine Given 06/26/2013 9:00 PM EST 50 Units Given 06/26/2013 10:53 AM EST 50 Units insulin detemir (LEVEMIR) PEN injection 70 Given 06/23 8:48 PM EST 70 Units Units 70 Units, Subcutaneous, 2 TIMES DAILY, First dose on 06/23/13 at 2100, Until Discontinued, Routine insulin regular human Bolus from Bag 06/16/2013 8:04 AM EST 8 Units (humuLIN;novoLIN) 1 mg/mL 150 Units in sodium chloride 0.9%150 mL BOLUS 0-16 Units 0-16 Units, Intravenous, PER INSULIN PROTOCOL, Starting on 06/16/13 at 0700, Until 06/16/13 at 0850, Per Protocol, BOLUS order. Type 2 Initial bolus 4 Units. Adjustment bolus per insulin infusion protocol: IV insulin Bolus scale: For BG in mg/dL (250-299 = 8 units, 300-359 = 12 units, greater than 360 = 16 units) , Routine insulin regular human Bolus from Bag 06/21/2013 9:21 PM EST 8 Units (humuLIN;novoLIN) 1 mg/mL 150 Units in sodium chloride 0.9%150 mL BOLUS 0-16 Units 0-16 Units, Intravenous, PER INSULIN PROTOCOL, Starting on Lucie 06/21/13 at 1635, Until Tue06/22/13 at 1553, Per Protocol, BOLUS order. Type 2 Initial bolus 4 Units. Adjustment bolus per insulin infusion protocol: IV insulin Bolus scale: For BG in mg/dL (250-299 = 8 units, 300-359 = 12 units, greater than 360 = 16 units) , Routine Bolus from Bag 06/21/2013 6:03 PM EST 8 Units insulin regular human Rate/Dose Verify 06/20/2013 10:00 2.5 Units/hr 2.5 mL/hr (HUMULIN;NOVOLIN) 150 AM EST Units in sodium chloride 0.9% 150 mL infusion 0.5-16 Units/hr (rounded to 0.5-16 mL/hr), Intravenous, CHANGE BAG EVERY EVENING, First dose on 06/16/13 at 0730, Until Discontinued, Type 2 diabetes. Current blood glucose 180 - 239 Titration- aim for target range of 140 - 180 mg/dL. Check BG every hour unless otherwise indicated. [[ Initial bolus of 4 units, then begin continuous infusion at 3.5 units/hour. ]] Current BG less than 80 - Stop insulin, give juice or D50 per protocol. Re-check BG in 30 minutes and as soon as BG is greater than 80, restart with rate 50% of previous rate. If infusion stopped after previous rate had been 0.5 unit/hour, recheck every hour and when BG greater than 100 and higher than last test restart at 0.5 unit/hour. Current BG 80 - 139 - If BG dropped 10 mg/dL or more since last test, decrease rate by 50% and re-check in 30 minutes. Otherwise, decrease rate by 0.5 units/hour. Current BG 140 - 180 - If BG dropped 50 mg/dL or more since last test, decrease rate by 1 unit/hour. Otherwise, maintain same rate. Current BG 181 - 220 - If BG is lower than last test, maintain same rate. Otherwise, increase rate by 0.5 units/hour. Current BG 221 - 250 - If BG dropped 30 mg/dL or more since last test, maintain same rate. Otherwise, increase rate by 1 unit/hour. Current BG greater than 250 - Increase rate by 1 unit/hour AND bolus with Regular insulin IV as per IV Bolus Scale. Re-check BG in 30 minutes. Rate/Dose Verify 06/20/2013 8:00 AM EST 2.5 Units/hr 2.5 mL/hr Rate/Dose Change 06/20/2013 6:00 AM EST 2.5 Units/hr 2.5 mL/hr insulin regular human New Bag 06/22/2013 3:37 PM EST 6.5 Units/hr 6.5 mL/hr (HUMULIN;NOVOLIN) 150 Units in sodium chloride 0.9% 150 mL infusion 0.5-16 Units/hr (rounded to 0.5-16 mL/hr), Intravenous, CHANGE BAG EVERY EVENING, First dose on Lucie 06/21/13 at 1700, Until Discontinued, Type 2 diabetes. Current blood glucose 180 - 239 Titration- aim for target range of 140 - 180 mg/dL. Check BG every hour unless otherwise indicated. [[ Initial bolus of 4 units, then begin continuous infusion at 3.5 units/hour. ]] Current BG less than 80 - Stop insulin, give juice or D50 per protocol. Re-check BG in 30 minutes and as soon as BG is greater than 80, restart with rate 50% of previous rate. If infusion stopped after previous rate had been 0.5 unit/hour, recheck every hour and when BG greater than 100 and higher than last test restart at 0.5 unit/hour. Current BG 80 - 139 - If BG dropped 10 mg/dL or more since last test, decrease rate by 50% and re-check in 30 minutes. Otherwise, decrease rate by 0.5 units/hour. Current BG 140 - 180 - If BG dropped 50 mg/dL or more since last test, decrease rate by 1 unit/hour. Otherwise, maintain same rate. Current BG 181 - 220 - If BG is lower than last test, maintain same rate. Otherwise, increase rate by 0.5 units/hour. Current BG 221 - 250 - If BG dropped 30 mg/dL or more since last test, maintain same rate. Otherwise, increase rate by 1 unit/hour. Current BG greater than 250 - Increase rate by 1 unit/hour AND bolus with Regular insulin IV as per IV Bolus Scale. Re-check BG in 30 minutes. Rate/Dose Change 06/22/2013 3:33 PM EST 6.5 Units/hr 6.5 mL/hr Rate/Dose Verify 06/22/2013 2:33 PM EST 6 Units/hr 6 mL/hr insulin regular human (HUMULIN;NOVOLIN) Given 06/16/2013 3:15 AM EST 10 Units VIAL injection 10 Units 10 Units, Intravenous, ONCE, 1 dose, On 06/16/13 at 0315, Routine insulin regular human (HUMULIN;NOVOLIN) Given 06/17/2013 2:30 AM EST 10 Units VIAL injection 10 Units 10 Units, Intravenous, ONCE, 1 dose, On 06/17/13 at 0230, Routine labetalol (NORMODYNE;TRANDATE) 5 mg/mL i njection 1 dose, Starting on Tue06/19/13 at 0112 , Until Tue06/19/13 at 0115, ANA URBINA: cabinet override labetalol (NORMODYNE;TRANDATE) injection 10 mg Given 06/21/2013 3:03 PM EST 10 mg 10 mg, Intravenous, EVERY 4 HOURS PRN, Starting on Tue06/19/13 at 0106, Until 06/24/13 at 1105, High Blood Pressure, SBP>160, Routine Given 06/21/2013 4:23 AM EST 10 mg Given 06/20/2013 9:15 PM EST 10 mg lactated ringers 1,000 mL IV bolus Given 06/16/2013 9:15 AM EST Intravenous, ONCE, 1 dose, On 06/16/13 at 0915 lactated ringers 1,000 mL IV bolus Given 06/16/2013 11:15 AM EST Intravenous, ONCE, 1 dose, On 06/16/13 at 1115 lactated ringers 1,000 mL IV bolus Given 06/16/2013 5:15 PM EST mL/hr mL/hr 500 mL/hr, Intravenous, ONCE, 1 dose, On 06/16/13 at 1715 lactated ringers 500 mL IV bolus Given 06/16/2013 1:30 PM EST Intravenous, ONCE, 1 dose, On 06/16/13 at 1330 lactated ringers 500 mL IV bolus Given 06/16/2013 5:15 PM EST 500 mL/hr 500 mL/hr 500 mL/hr, Intravenous, ONCE, 1 dose, On 06/16/13 at 1715 levofloxacin (LEVAQUIN) tablet 500 mg Given 06/27/2013 8:57 AM EST 500 mg 500 mg, Oral, EVERY 24 HOURS SCHEDULED (Daily), First dose on Tue06/22/13 at 1145, Until Discontinued, Routine, Indication for (Active or Suspected): for GI/Intra-abdominal, Restricted Antibiotic: Please indicate the most appropriate choice: ID Approval by Mulugeta Gomes Given 06/26/2013 9:15 AM EST 500 mg Given 06/25/2013 8:32 AM EST 500 mg levofloxacin in D5W (LEVAQUIN) 750 mg/150 mL Given 9:00 AM EST 750 mg 750 mg 750 mg, Intravenous, EVERY 24 HOURS, First dose on 06/16/13 at 0800, Until Discontinued, Routine, Indication for (Active or Suspected): for GI/Intra-abdominal, Restricted Antibiotic: Please indicate the most appropriate choice: Pre-approved Indication (State the indication in Comments field) Given 06/16/2013 11:00 AM EST 750 mg magnesium sulfate 1g in dextrose 5% Given 06/17/2013 8:00 PM EST 1 g 100 mL/hr 100mL 1 g, Intravenous, ONCE, 1 dose, On 06/17/13 at 1900, Administer over 60 Minutes magnesium sulfate 1g in dextrose 5% Given 06/18/2013 12:15 AM ES T 1 g 100 mL/hr 100mL 1 g, Intravenous, ONCE, 1 dose, On Tue06/18/13 at 0000, Administer over 60 Minutes magnesium sulfate 1g in dextrose 5% Given 06/18/2013 6:15 AM EST 1 g 100 mL/hr 100mL 1 g, Intravenous, ONCE, 1 dose, On Tue06/18/13 at 0600, Administer over 60 Minutes meropenem (MERREM) 1g vial attach to Given 06/22/2013 3:43 AM ES T 1 g 200 mL/hr sodium chloride 0.9% 100 mL Mini-Bag Plus 1 g, Intravenous, EVERY 8 HOURS, First dose (after last reorder) on 06/17/13 at 1600, Until Discontinued, Administer over 30 Minutes, Indication for (Active or Suspected): for Pneumonia ([facility]), Restricted Antibiotic: Please indicate the most appropriate choice: ID Approval by Mulugeta Gomes Given 06/21/2013 7:30 PM EST 1 g 200 mL/hr Given 06/21/2013 11:45 AM EST 1 g 200 mL/hr metoprolol (LOPRESSOR) 5 mg/5 mL injecti on Given 06/21/2013 7:52 AM EST 5 mg 1 dose, Starting on Lcuie 06/21/13 at 0748, Until Lucie 06/21/13 at 0752, KORY TORRES: cabinet override metroNIDAZOLE (FLAGYL) 500 mg in Given 06/17/2013 6:00 AM EST 50 0 mg 200 mL/hr sodium chloride 0.9% 100 mL 500 mg, Intravenous, EVERY 8 HOURS, First dose on 06/16/13 at 0230, Until Discontinued, Administer over 30 Minutes, Indication for (Active or Suspected): for GI/Intra-abdominal Given 06/16/2013 10:00 PM EST 500 mg 200 mL/hr Given 06/16/2013 2:00 PM EST 500 mg 200 mL/hr metroNIDAZOLE (FLAGYL) tablet 500 mg Given 06/27/2013 8:57 AM EST 500 mg 500 mg, Oral, 3 TIMES DAILY, First dose on Tue06/22/13 at 1400, Until Discontinued, Routine, Indication for (Active or Suspected): for GI/Intra-abdominal Given 06/26/2013 9:21 PM EST 500 mg Given 06/26/2013 3:55 PM EST 500 mg miconazole (MICOTIN) 2 % powder Given 06/27/2013 9:03 AM EST Topical, 2 TIMES DAILY, First dose on Tue06/16/13 at 2330, Until Discontinued Given 06/26/2013 9:21 PM EST Given 06/26/2013 9:27 AM EST midazolam (VERSED) 1 mg/mL injection 1 dose, Starting on Tue06/17/13 at 1621 , Until Tue06/17/13 at 1627, CHANTE BENNETT: cabinet override midazolam (VERSED) injection 2 mg Given 06/17/2013 4:43 PM EST 1 mg 2 mg, Intravenous, EVERY 10 MIN PRN, 2 doses, Starting on 06/17/13 at 1623, Until Tue06/17/13 at 1643, Anxiety, anxiety or ventilator dysynchrony, Administer If RASS remains +3 or +4 after fentaNYL, call provider for new sedation orders and administer midazolam., Routine Given 06/17/2013 4:27 PM EST 1 mg midazolam (VERSED) injection 2 mg Bolus from Bag 06/17/2013 8:55 PM EST 2 mg 2 mg, Intravenous, EVERY 10 MIN PRN, 2 doses, Starting on Tue06/17/13 at 1854, Until Tue06/17/13 at 2055, Anxiety, anxiety or ventilator dysynchrony, Administer If RASS remains +3 or +4 after fentaNYL, call provider for new sedation orders and administer midazolam., Routine Bolus from Bag 06/17/2013 7:00 PM EST 2 mg midazolam (VERSED) injection 2 mg Given 06/19/2013 4:30 AM EST 2 mg 2 mg, Intravenous, ONCE, 1 dose, On Tue06/19/13 at 0430, Routine midazolam (VERSED) injection 2 mg Given 06/19/2013 4:15 AM EST 2 mg 2 mg, Intravenous, ONCE, 1 dose, On Tue06/19/13 at 0430, Routine midazolam (VERSED) injection 2-4 mg Given 06/19/2013 5:55 AM EST 2 mg 2-4 mg, Intravenous, ONCE, 1 dose, On Tue06/19/13 at 0600, Routine Given 06/19/2013 5:46 AM EST 2 mg midazolam 1 mg/mL (standard Rate/Dose Verify 06/18/2013 12:00 PM ES T 4 mg/hr 4 mL/hr ADULT & Sam greater than 20kg) infusion 1-4 mg/hr (rounded to 1-4 mL/hr), Intravenous, CONTINUOUS, Starting on 06/17/13 at 1845, Until Tue06/19/13 at 0949, Routine Rate/Dose Change 06/18/2013 10:45 AM EST 4 mg/hr 4 mL/hr Rate/Dose Change 06/18/2013 10:00 AM EST 2 mg/hr 2 mL/hr montelukast (SINGULAIR) tablet 10 mg Given 06/26/2013 9:21 PM EST 10 mg 10 mg, Oral, NIGHTLY, First dose on 06/16/13 at 0115, Until Discontinued, Routine Given 06/25/2013 8:45 PM EST 10 mg Given 06/24/2013 8:46 PM EST 10 mg mycophenolate (CELLCEPT) 200 mg/mL oral Given 06/23/2013 8:43 PM EST 250 mg suspension 250 mg 250 mg, Oral, 2 TIMES DAILY, First dose on Tue06/22/13 at 0900, Until Discontinued, Routine Given 06/23/2013 8:57 AM EST 250 mg Given 06/22/2013 9:10 PM EST 250 mg mycophenolate (CELLCEPT) 200 mg/mL oral Given 06/27/2013 9:02 AM EST 500 mg suspension 500 mg 500 mg, Oral, 2 TIMES DAILY, First dose (after last modification) on 06/24/13 at 1000, Until Discontinued, Routine Given 06/26/2013 9:21 PM EST 500 mg Given 06/26/2013 9:20 AM EST 500 mg polyethylene glycol (MIRALAX) packet 17 g Given 06/18/2013 10:30 PM EST 17 g 17 g, Oral, ONCE, 1 dose, On 06/18/13 at 2230, Routine polyethylene glycol (MIRALAX) packet 17 g Given 06/21/2013 2:32 PM EST 17 g 17 g, Oral, DAILY, First dose on Lucie 06/21/13 at 1400, Until Discontinued, Routine potassium chloride (K-DUR/KLOR-CON) extended Given 10/2012 11:54 AM EST 40 mEq release tablet 40 mEq 40 mEq, Oral, ONCE, 1 dose, On Tue06/27/13 at 1145, 20 mEq tablet may be dissolved in water for administration, Routine propofol (DIPRIVAN) 10 mg/mL infusion 1 dose, Starting on Tue06/16/13 at 0653 , Until Tue06/16/13 at 2000, [facility]: cabinet override propofol (DIPRIVAN) Rate/Dose Change 06/17/2013 9:54 AM 25 mcg/kg/m in 22.1 mL/hr infusion EST 5-50 mcg/kg/min ? 147.2 kg (rounded to 4.4-44.2 mL/hr), Intravenous, CONTINUOUS, Starting on Tue06/16/13 at 0730, Until Tue06/19/13 at 0729, Maintenance sedation for neurological indication- mechanically ventilated patient. Titrate to RASS goal., Routine New Bag 06/17/2013 7:04 AM EST 20 mcg/kg/min 17.7 mL/hr Rate/Dose Verify 06/17/2013 6:00 AM EST 20 mcg/kg/min 17.7 mL/hr propofol (DIPRIVAN) Rate/Dose Change 06/19/2013 7:46 AM 20 mcg/kg/m in 19.2 mL/hr infusion EST 5-60 mcg/kg/min ? 160.3 kg (rounded to 4.8-57.7 mL/hr), Intravenous, CONTINUOUS, Starting on Tue06/19/13 at 0630, Until Tue06/19/13 at 0956, Routine New Bag 06/19/2013 6:30 AM EST 50 mcg/kg/min 48.1 mL/hr propofol (DIPRIVAN) New Bag 06/20/2013 10:00 AM EST 40 mcg/kg/min 38.5 mL/hr infusion 0-50 mcg/kg/min ? 160.3 kg (rounded to 0-48.1 mL/hr), Intravenous, CONTINUOUS, Starting on Tue06/19/13 at 2030, Until Tue06/20/13 at 1126, Titrate for RASS 0 to -1, Routine Restarted 06/20/2013 8:30 AM EST 40 mcg/kg/min 38.5 mL/hr New Bag 06/20/2013 6:30 AM EST 40 mcg/kg/min 38.5 mL/hr propranolol (INDERAL LA) SR Capsule 160 mg Given 06/20/2013 8:28 PM EST 160 mg 160 mg, Oral, 2 TIMES DAILY, First dose on Tue06/20/13 at 2100, Until Discontinued, Routine propranolol (INDERAL) tablet 80 mg Given 06/27/2013 11:53 AM EST 80 mg 80 mg, Oral, EVERY 6 HOURS SCHEDULED, First dose (after last modification) on Lucie 06/21/13 at 0600, Until Discontinued, Hold for HR < 60, SBP <90, Routine Given 06/27/2013 6:00 AM EST 80 mg Given 06/27/2013 12:00 AM EST 80 mg senna-docusate (PERICOLACE) 8.6-50 mg per Given 2012 9:01 AM EST 3 tablets tablet 1-4 tablet 1-4 tablet, Oral, 2 TIMES DAILY, First dose on 06/16/13 at 0900, Until Discontinued, Start with 1 tablet or liquid equivalent orally twice daily and titrate up to achieve: 1. One bowel movement at least every 48 hours, AND 2. Without straining, Routine Given 06/20/2013 8:28 PM EST 4 tablets Given 06/20/2013 9:30 AM EST 3 tablets simvastatin (ZOCOR) tablet 10 mg Given 06/26/2013 4:49 PM EST 10 mg 10 mg, Oral, EVERY EVENING, First dose on 06/16/13 at 1700, Until Discontinued, Routine Given 06/25/2013 5:15 PM EST 10 mg Given 06/24/2013 6:00 PM EST 10 mg sodium chloride 0.45% 1,000 mL Rate/Dose Verify 06/19/2013 6:00 AM EST 10 mL/hr infusion at 10 mL/hr, Intravenous, CONTINUOUS, Starting on 06/18/13 at 1245, Until Lucie 06/21/13 at 1015 Rate/Dose Verify 06/19/2013 4:00 AM EST 10 mL/hr Rate/Dose Verify 06/19/2013 2:00 AM EST 10 mL/hr sodium chloride 0.9 % flush 10 mL New Bag 06/18/2013 12:00 PM EST 10 mLs 10 mL, Intravenous, CONTINUOUS, Starting on 06/16/13 at 1600, Until Lucie 06/21/13 at 1021, KVO, Routine Rate/Dose Verify 06/18/2013 10:00 AM EST 10 mLs Rate/Dose Verify 06/18/2013 8:00 AM EST 10 mLs sodium chloride 0.9 % flush 10 mL New Bag 06/18/2013 12:00 PM EST 10 mLs 10 mL, Intravenous, CONTINUOUS, Starting on 06/16/13 at 1600, Until Lucie 06/21/13 at 1021, KVO, Routine Rate/Dose Verify 06/18/2013 10:00 AM EST 10 mLs Rate/Dose Verify 06/18/2013 8:00 AM EST 10 mLs sodium chloride 0.9% 1,000 mL IV bolus Given 06/16/2013 3:15 AM EST Intravenous, ONCE, 1 dose, On 06/16/13 at 0315 sodium chloride 0.9% 1,000 mL IV bolus Given 06/17/2013 2:43 PM EST Intravenous, ONCE, 1 dose, On 06/17/13 at 1445 sodium chloride 0.9% 500 mL IV bolus Given 06/17/2013 6:00 PM EST Intravenous, ONCE, 1 dose, On 06/17/13 at 1815 sodium chloride 0.9% infusion New Bag 06/16/2013 6:50 AM EST 125 mL/hr 125 mL/hr 125 mL/hr, Intravenous, CONTINUOUS, Starting on 06/16/13 at 0130, Until 06/16/13 at 0702 New Bag 06/16/2013 2:09 AM EST 125 mL/hr 125 mL/hr sodium chloride 0.9% Rate/Dose Verify 06/18/2013 12:00 PM 250 mL/hr 250 mL/hr infusion EST 250 mL/hr, Intravenous, CONTINUOUS, Starting on 06/16/13 at 0730, Until 06/18/13 at 1228 New Bag 06/18/2013 10:00 AM EST 250 mL/hr 250 mL/hr Rate/Dose Verify 06/18/2013 8:00 AM EST 250 mL/hr 250 mL/hr sodium chloride 0.9% infusion New Bag 06/24/2013 4:00 AM EST 75 mL/hr 75 mL/hr 75 mL/hr, Intravenous, CONTINUOUS, Starting on Tue06/18/13 at 2045, Until Tue06/25/13 at 0615 New Bag 06/22/2013 5:41 PM EST 75 mL/hr 75 mL/hr Rate/Dose Verify 06/22/2013 6:00 AM EST 75 mL/hr 75 mL/hr sodium chloride 0.9% Rate/Dose Verify 06/21/2013 10:00 PM 500 mL/hr 500 mL/hr infusion EST 500 mL/hr, Intravenous, CONTINUOUS, Starting on Lucie 06/21/13 at 2015, Until Tue06/22/13 at 1134, Please give 1000cc bolus at 500cc/hr over 2 hours and then resume NS at 75cc/hr overnight. Thanks. New Bag 06/21/2013 8:15 PM EST 500 mL/hr 500 mL/hr sodium polystyrene (KAYEXALATE) 15 gram/60 mL Given 06/17/20 13 2:15 AM EST 15 g oral suspension 15 g 15 g, Oral, ONCE, 1 dose, On 06/17/13 at 0215, Routine tacrolimus (PROGRAF) 1 mg/2 mL oral suspension Given 08/28/2012 9:02 AM EST 1 mg 1 mg 1 mg, Oral, 2 TIMES DAILY, First dose on Tue06/19/13 at 2100, Until Discontinued, Routine Given 06/26/2013 9:21 PM EST 1 mg Given 06/26/2013 9:19 AM EST 1 mg tacrolimus (PROGRAF) capsule 0.5 mg Given 06/18/2013 9:00 PM EST 0.5 mg 0.5 mg, Oral, 2 TIMES DAILY, First dose (after last modification) on Tue06/18/13 at 2100, Until Discontinued, Routine tacrolimus (PROGRAF) capsule 1 mg Given 06/18/2013 9:33 AM EST 1 mg 1 mg, Oral, 2 TIMES DAILY, First dose on 06/16/13 at 0130, Until Discontinued, Routine Given 06/17/2013 9:00 PM EST 1 mg Given 06/17/2013 9:00 AM EST 1 mg tube feeding diet New Bag 06/22/2013 10:49 PM EST 1,080 mLs 54 mL/hr 1,080 mL, Per NG tube, at 54 mL/hr, CONTINUOUS, Starting on Tue06/20/13 at 1630, Until 06/24/13 at 1952, Administer flushes and check residuals per policy, Which tube feed product? Vikash, Strength: , Initial Rate: (mL/hr): 10, Advance by: (mL): 10, Advance every: Q4H, Goal final rate: (mL/hr): 54 Rate/Dose Change 06/22/2013 8:00 AM EST 1,080 mLs 54 mL/hr Rate/Dose Verify 06/22/2013 6:00 AM EST 1,080 mLs 40 mL/hr vancomycin (VANCOCIN) 3,000 mg in Given 06/16/2013 8:[address] 3,000 mg 186.7 mL/hr sodium chloride 0.9% 560 mL 3,000 mg (3 g), Intravenous, ONCE, 1 dose, On 06/16/13 at 0800, Administer over 180 Minutes, This medication may have an associated drug lab level. Please check for lab orders, Indication for (Active or Suspected): for GI/Intra-abdominal vancomycin 1 g in dextrose 5% 200 mL Given 06/21/2013 3:00 AM EST 1,000 mg 1,000 mg (1 g), Intravenous, EVERY 12 HOURS, First dose (after last reorder) on 06/18/13 at 2300, Until Discontinued, Administer over 90 Minutes, This medication may have an associated drug lab level. Please check for lab orders, Indication for (Active or Suspected): for GI/Intra-abdominal Given 06/20/2013 3:16 PM EST 1,000 mg Given 06/19/2013 11:00 PM EST 1,000 mg vancomycin 1.25 g sodium in Given 06/18/2013 12:00 PM EST 1,250 mg 125 mL/hr chloride 0.9% 250 mL 1,250 mg (1.25 g), Intravenous, EVERY 24 HOURS, First dose on 06/17/13 at 1100, Until Discontinued, Administer over 120 Minutes, This medication may have an associated drug lab level. Please check for lab orders, Indication for (Active or Suspected): for GI/Intra-abdominal Given 06/17/2013 11:00 AM EST 1,250 mg 125 mL/hr vancomycin 750 mg in dextrose 5% 150 Given 06/22/2013 3:30 A M EST 750 mg 100 mL/hr mL 750 mg, Intravenous, EVERY 12 HOURS, First dose (after last modification) on Lucie 06/21/13 at 1500, Until Discontinued, Administer over 90 Minutes, This medication may have an associated drug lab level. Please check for lab orders, Indication for (Active or Suspected): for GI/Intra-abdominal Given 06/21/2013 2:53 PM EST 750 mg 100 mL/hr documented in this encounter Active and Recently Administered Medications Times are shown in EST. Scheduled Medication Order 06/25/2013 06/26/2013 06/27/2013 chlorhexidine (PERIDEX) 0.12 % oral solution 15 mL (CA NCELED) 0827 (Given - Provider: Shandra Eddy RN)2100 (Given - Provider: Ruth Wallace, SHEILA) 0926 (Given - Provider: Shandra Eddy RN)2120 (Given - Provider: Kim Sanchez RN) 0855 (Not Given - Provider: Shandra Almonte res, RN - Reason: Patient/family refused) 15 mL, Oral, EVERY 12 HOURS SCHEDULED (2 times per day), First dose on 06/16/13 at 0900, Until Discontinued, To brush teeth, Routine fluticasone (FLONASE) 50 mcg/actuation nasal spray 2 s pray (CANCELED) 0827 (Given - Provider: Shandra Eddy RN) 0921 (Given - Provider: Shandra Eddy RN) 0855 (Given - Provider: Shandra Eddy RN) 2 spray, Each Nare, DAILY, First dose on 06/16/13 at 0900, Until Discontinued, Routine furosemide (LASIX) injection 20 mg (COMPLETED) 1654 (G iven - Provider: Shandra Eddy RN) 20 mg, Intravenous, ONCE, 1 dose, 06/25/13 at 1645, Routine furosemide (LASIX) injection 20 mg (COMPLETED) 1050 (Given - Provider: Shandra Eddy RN) 20 mg, Intravenous, ONCE, 1 dose, 06/27/13 at 0830, Routine heparin (porcine) subcutaneous injection 5,000 Units ( CANCELED) 0636 (Given - Provider: Ruth Wallace, SHEILA)1445 (Given - Provider: Shandra Eddy RN)2158 (Given - Provider: Ruth Wallace RN) 0643 (Given - Provider: Ruth Wallace RN)1321 (Given - Provider: Shandra Eddy, SHEILA)2120 (Given - Provider: Kim Sanchez, SHEILA) 0600 (Given - Provider: Jael Morin RN ) 5,000 Units, Subcutaneous, EVERY 8 HOURS SCHEDULED, First dose on Lucie 06/21/13 at 1400, Until Discontinued, Routine hydrALAZINE (APRESOLINE) tablet 50 mg (CANCELED) 0836 (Given - Provider: Shandra Eddy RN)1245 (Given - Provider: Shandra Eddy, SHEILA)1713 (Given - Provider: Shandra Eddy, SHEILA)2045 (Given - Provider: Ruth Wallace RN) 0925 (Given - Provider: Shandra Eddy, SHEILA)1219 (Given - Provider: Shandra Eddy, SHEILA)1650 (Given - Provider: Kim Sanchez, SHEILA)2120 (Given - Provider: Kim Sanchez, SHEILA) 0900 (Given - Provider: Shandra Eddy, SHEILA) 50 mg, Oral, 4 TIMES DAILY, First dose o n 06/25/13 at 0900, Until Discontinued, Take with Food, Routine insulin aspart (novoLOG) PEN injection 0-20 Units 0822 (Given - Provider: Shandra Eddy RN)1242 (Given - Provider: Shandra Eddy, SHEILA)1717 (Given - Provider: Shandra Eddy, SHEILA) 0908 (Given - Provider: Shandra Eddy, SHEILA)1215 (Given - Provider: Shandra Eddy, SHEILA)1700 (Given - Provider: Kim Sanchez, SHEILA) 0850 (Given - Provider: Shandra Eddy, SHEILA)1152 (Given - Provider: Shandra Eddy, SHEILA) 0-20 Units, Subcutaneous, 3 TIMES DAILY WITH MEALS, First dose on 06/23/13 at 2015, Until Discontinued, MEAL ASSOCIATED Give 1 unit for every 4 grams carbohydrate. Hold if not eating, Routine insulin aspart (novoLOG) PEN injection 3-12 Units 0026 (Not Given - Provider: Ruth P Chiacchio, RN - Reason: Order parameters not met)0425 (Not Given - Provider: Ruth Wallace RN - Reason: Order parameters not met) 0021 (Given - Provider: Ruth Wallace RN)0355 (Not Given - Provider: Ruth Wallace RN - Reason: Order parameters not met)0909 (Given - Provider: Shandra Eddy RN)1215 (Given - Provider: Shandra Eddy RN) 0000 (Given - Provider: Jael Morin RN)0400 (Given - Provider: Jael Morin RN)0851 (Not Given - Provider: Shandra Eddy RN - Reason: Order parameters not met)1152 (Given - Provider: Shandra Eddy RN) 3-12 Units, Subcutaneous, EVERY 4 HOURS SCHEDULED, First dose on 06/23/13 at 2014, Until Discontinued, 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 TDD (total daily dose of all insuli 0821 (Not Given - Provider: Shandra Eddy RN - Reason: Order parameters not met)1241 (Not Given - Provider: Shandra Eddy RN - Reason: Order parameters not met)1534 (Not Given - Provider: Shandra Eddy RN - Reason: Order parameters not met) 1701 (Given - Provider: Kim Sanchez RN)2000 (Given - Provider: Kim Sanchez, SHEILA) n needed to achieve glycemic control) gr eater than 60 units BG 140 - 160 Give 3 units BG 161 - 200 Give 6 units BG 201 - 240 Give 9 units BG greater than 240, give 12 units and recheck BG in 2 hours. If 2047 (Given - Provider: Ruth Wallace RN) BG remains greater than 240, repeat 12 units (no more than three times) & call for new basal insulin orders. If less than 240 after two hours, give no insulin and resume prior schedule., Routine insulin detemir (LEVEMIR) PEN injection 50 Units 0818 (Given - Provider: Shandra Eddy RN)2048 (Given - Provider: Ruth Wallace RN) 0912 (Not Given - Provider: Shandra Eddy RN - Reason: Medication not available - Comment: not enough insulin in pen. will call pharmacy)1053 (Given - Provider: Shandra Eddy, SHEILA)2100 (Given - Provider: Kim Sanchez, SHEILA) 0851 (Given - Provider: Shandra Eddy RN) 50 Units, Subcutaneous, 2 TIMES DAILY, F irst dose on Tue06/24/13 at 0900, Until Discontinued, Routine levofloxacin (LEVAQUIN) tablet 500 mg 0832 (Given - Pr ovider: Shandra Eddy RN) 0915 (Given - Provider: Shandra Eddy RN) 0857 (Giv en - Provider: Shandra Eddy RN) 500 mg, Oral, EVERY 24 HOURS SCHEDULED ( Daily), First dose on Tue06/22/13 at 1145, Until Discontinued, Routine metroNIDAZOLE (FLAGYL) tablet 500 mg 0834 (Given - Pro vider: Shandra Eddy RN)1445 (Given - Provider: Shandra Eddy, SHEILA)2044 (Given - Provider: Ruth Wallace RN) 0916 (Given - Provider: Shandra Eddy RN)155 (Given - Provider: Kim Sanchez, SHEILA)212 (Given - Provider: Kim Sanchez, SHEILA) 0857 (Given - Provider: Shandra Eddy RN) 500 mg, Oral, 3 TIMES DAILY, First dose on Tue06/22/13 at 1400, Until Discontinued, Routine miconazole (MICOTIN) 2 % powder 0941 (Given - Provider : Shandra Eddy RN)2034 (Given - Provider: Ruth Wallace RN) 09 (Given - Provider: Shandra Eddy RN)2120 (Given - Provider: Kim Sanchez, SHEILA) 09 (Given - Provider: Shandra Eddy, SHEILA) Topical, 2 TIMES DAILY, First dose on Tue06/16/13 at 2330 montelukast (SINGULAIR) tablet 10 mg (CANCELED) 2044 ( Given - Provider: Ruth Wallace RN) 2120 (Given - Provider: Kim Sanchez, SHEILA) 10 mg, Oral, NIGHTLY, First dose on Tue06/16/13 at 0115, Until Discontinued, Routine mycophenolate (CELLCEPT) 200 mg/mL oral suspension 500 mg (CANCELED) 0939 (Given - Provider: Shandra Eddy, SHEILA)2044 (Given - Provider: Ruth Wallace RN) 09 (Given - Provider: Shandra Eddy RN)212 (Given - Provider: Kim Sanchez, SHEILA) 09 (Given - Provider: Shandra Eddy, SHEILA) 500 mg, Oral, 2 TIMES DAILY, First dose on Tue06/24/13 at 1000, Until Discontinued, Routine polyethylene glycol (MIRALAX) packet 17 g 08 (Not Gi fan - Provider: Shandra Eddy RN - Reason: Order parameters not met) 09 (Not Given - Provider: Shandra Eddy RN - Reason: Patient/family refused) 0858 (Not Given - Provider: Shandra Eddy RN - Reason: Order parameters not met) 17 g, Oral, DAILY, First dose on Tue at 1400, Until Discontinued, Routine potassium chloride (K-DUR/KLOR-CON) extended release tablet 40 mEq (COMPLETED) 1154 (Given - Provider: Shandra Eddy, SHEILA) 40 mEq, Oral, ONCE, 1 dose, Tue06/27/13 at 1145, 20 mEq tablet may be dissolved in water for administration, Routine propranolol (INDERAL) tablet 80 mg 0032 (Given - Provi urszula: Ruth Wallace RN)0636 (Given - Provider: Ruth Wallace RN)1248 (Given - Provider: Shandra Eddy RN)1843 (Given - Provider: Shandra Eddy RN) 0021 (Given - Provider: Ruth Wallace RN)0641 (Not Given - Provider: Ruth Wallace RN - Reason: Order parameters not met)1218 (Given - Provider: Shandra Eddy RN)1704 (Given - Provider: Kim Sanchez, SHEILA) 0000 (Given - Provider: Jael Morin, SHEILA)0600 (Given - Provider: Jael Morin, RN)1153 (Given - Provider: Shandra Eddy, SHEILA) 80 mg, Oral, EVERY 6 HOURS SCHEDULED, Fi rst dose on Tue06/21/13 at 0600, Until Discontinued, Hold for HR < 60, SBP <90, Routine simvastatin (ZOCOR) tablet 10 mg (CANCELED) 1715 (Give n - Provider: Shandra Eddy, SHEILA) 1649 (Given - Provider: Kim Sanchez, SHEILA) 10 mg, Oral, EVERY EVENING, First dose o n 06/16/13 at 1700, Until Discontinued, Routine tacrolimus (PROGRAF) 1 mg/2 mL oral suspension 1 mg 08 37 (Given - Provider: Shandra Eddy, SHEILA)2044 (Given - Provider: Ruth Wallace, SHEILA) 918 (Given - Provider: Shandra Eddy, RN)2120 (Given - Provider: Kim Sanchez, RN) 09 (Given - Provider: Shandra Eddy, SHEILA) 1 mg, Oral, 2 TIMES DAILY, First dose on Tue06/19/13 at 2100, Until Discontinued, Routine PRN Medication Order 06/25/2013 06/26/2013 06/27/2013 albuterol (PROVENTIL) nebulizer solution 2.5 mg (CANCELED) 0034 (Given - Provider: Jael Morin, SHEILA) 2.5 mg, Nebulization, EVERY 2 HOURS PRN, Starting Tue06/20/13 at 1432, Until Tue06/27/13 at 1417, Wheezing, Routine documented in this encounter Care Teams Side Gluer Relationship Specialty Start Date End Date Dc Ibanez MD PCP - General 04/02/13 04/01/14 [address]NAMARIA [address] [facility] [place] [address] documented as of this encounter
--- OUTSIDE RECORDS SUMMARY | 2022-05-24 10:57 | XMS_ITS | Encounter Summary ---
:1955 Author Organization [facility] [place] [address] Care Team Providers Name Role Phone Dc Ibanez MD Primary Care Provider Encounter Details Date Type Department Care Team Description 06/20/2013 External Results XRay at [facility], [address] [place] [id number] Social History Tobacco Use Types Packs/Day [...] PA [facility] [address] [place] [address] (Wo rk) 06/02/2022 Infusion Hematology and Oncology 06/16/2022 Infusion Hematology and Oncology 06/21/2022 Office Visit Neurology Tyler Rojas MD [facility] Dr [address]i [place] [address] 6-2022 (Wo rk) 06/30/2022 Infusion Hematology and Oncology 07/14/2022 Infusion Hematology and Oncology 07/28/2022 Infusion Hematology and Oncology 08/11/2022 Infusion Hematology and Oncology 11/04/2022 Office Visit Rheumatology Dante Freedman PA [facility] RHEUMATOLOGY [place], [place] [address] (Wo rk) documented as of this encounter Procedures Procedure Name Priority Date/Time Associated Diagnosis Comme nts CT SCAN (SCAN) Routine 06/15/2013 DIAGNOSTIC RADIOLOGY SCAN Routine 06/15/2013 documented in this encounter Results Scan Doc: Diagnostic Radiology (06/15/2013) Anatomical Region Laterality Modality Other Narrative This result has an attachment that is no t available. Scanning Provider MEDIA MGR SCAN EXT ORDR/RSLT Scan Doc: CT Scan (06/15/2013) Anatomical Region Laterality Modality Other Narrative This result has an attachment that is no t available. Scanning Provider MEDIA MGR SCAN EXT ORDR/RSLT documented in this encounter Visit Diagnoses Not on filedocumented in this encounter Care Teams Packing Machine Pilot Can Router Relationship Specialty Start Date End Date Dc Ibanez MD PCP - General 04/02/13 04/01/14 ANAMARIA [address] [place] [address] documented as of this encounter
--- OUTSIDE RECORDS SUMMARY | 2022-05-24 10:57 | XMS_ITS | Encounter Summary ---
:1955 Author Organization [facility] [place] [address] Care Team Providers Name Role Phone Dc Ibanez MD Primary Care Provider Encounter Details Date Type Department Care Team Description 06/20/2013 Orders Only Solid Organ Transplant at Angel Evangelista MD [facility] Giovana tyler [place] [address] [place] [id number] [phone] (Wo rk) Social History Tobacco Use Types [...] [facility] [place] [address] (Wo rk) 06/02/2022 Infusion Hematology and Oncology 06/16/2022 Infusion Hematology and Oncology 06/21/2022 Office Visit Neurology Tyler Rojas MD [facility] er Neurology [place], [place] [phone] (Wo rk) 06/30/2022 Infusion Hematology and Oncology 07/14/2022 Infusion Hematology and Oncology 07/28/2022 Infusion Hematology and Oncology 08/11/2022 Infusion Hematology and Oncology 11/04/2022 Office Visit Rheumatology Dante Freedman PA [facility] ER RHEUMATOLOGY [place], [place] [address] (Wo rk) documented as of this encounter Procedures Procedure Name Priority Date/Time Associated Diagnosis Comme nts GOLD TUBE HOLD STAT 06/20/2013 10:35 AM Result s for this EST procedure are i n the results section. VANCOMYCIN, TROUGH STAT 06/20/2013 10:35 AM Re sults for this EST procedure are i n the results section. documented in this encounter Results Vancomycin, trough (06/20/2013 10:35 AM EST) athologist Signature Vanc Trough 21.5 mg/L [facility] Show de Ingressos Comment: Therapeutic range for complicated infect ions [...] / / Volume Laterality Blood specimen 06/20/2013 10:35 3 (specimen) AM EST 11:22 AM EST Resulting Agency Comment Spec In Lab Angel Mccann MD CHEMISTRY ORDERABLES Performing Organization Address City/State/ZIP [place] [address] CERNER MILLENNIUM Gold Tube HOLD (06/20/2013 10:35 AM EST) athologist Signature Gold Hold Sample in [facility] lab. [facility] Specimen Anatomical Collection Method Collection Time Receive d Time (Source) Location / / Volume Laterality Blood specimen 06/20/2013 10:35 3 (specimen) AM EST 10:44 AM EST Angel Mccann MD CHEMISTRY ORDERABLES Performing Organization Address City/State/ZIP Code Phon e Number [place] [phone] [facility] documented in this encounter Visit Diagnoses Not on filedocumented in this encounter Care Teams Ultrasonic Hand Solderer Relationship Specialty Start Date End Date Dc Ibanez MD PCP - General 04/02/13 04/01/14 ANAMARIA [address] [place] [address] documented as of this encounter
--- OUTSIDE RECORDS SUMMARY | 2022-05-24 10:57 | XMS_ITS | Encounter Summary ---
:1955 Author Organization [facility] [place] [address] Care Team Providers Name Role Phone Dc Ibanez MD Primary Care Provider Encounter Details Date Type Department Care Team Description 06/16/2013 Anesthesia Event Main Operating Room Jesús Rodriguez MD [facility] [place] [address] [facility] Devin Gonzalez MD [facility] [place] [address] [place] [address] Anesthesia Record Procedure Summary Procedure Name Responsible Anesthesia Start Anesthesia Stop Anesthesiologist Time Time LAPAROSCOPIC Jesús Robbins MD 06/16/13 0426 06/16/13 064 6 APPENDECTOMY (WRVU 9.45) (N/A Abdomen) Events Date Time Event Comment 06/16/2013 0426 AN Verify 0426 Start 0426 An Start Data 0438 An Induction 0442 An Intubation 0445 Quick Note Verified that an tibiotics not indicated since already administ ered prior to the OR. No need for repeat doses or additional coverage to Vancomycin, Clindamycin, and Flagyl. 0448 Anesthesia Ready 0626 an stop data 0626 Transport Transferred to ortable monitors (standard ASA monitors) and tr ansported to ICU, intubated, in stable condition with vital signs within normal limits. 0626 Quick Note 0646 Stop 0725 Name Total fentaNYL 250 mcg Propofol 200 mg Rocuronium 80 mg PHENYLephrine 80 mcg DOPamine INF 54.61 mg heparin (porcine) 5000 unit/0.5 mL subcutaneous inject ion 5,000 Units Propofol INF 185.47 mg Sodium Chloride 0.9% 1,800 mL Sodium Chloride 0.9% 600 mL Agents Name O2 Air N2O Desflurane (et) Isoflurane (et) Blood No blood administrations on file. Lines, Drains, and Airways Type Details Placement Removal Incision 06/21/11; 1329; leg; 06/21/11 1329 by 02/09/22 0 646 by 02/09/22; 0646 Tabitha Fournier Philibert, E rica H RN RN Urethral Catheter 06/15/13; 2110; 06/15/13 2110 by 06/25/13 0000 by intermittent coude tip Martha Riley, Nicky Isaac, catheter; drainage bag SALES ATTENDANT to dependent drainage; 06/25/13 (RETIRED) Arterial Radial 06/16/13 0000 by 06/21/13 120 5 by Hanna Morin Andrew C, RN Jordan K RN (RETIRED) NG/OG Tube 06/16/13 0000 by 06/16/13 1 337 by Kimo Yusuf RN Dwinell, Lyn n M, RN Urethral Catheter 06/16/13; intermittent 06/16/13 0000 by 1334 by catheter; in place; Kimo Yusuf RN Dwinell, Lynn M, RN 06/16/13; 1334 PIV 06/16/13; 0200; 06/16/13 0200 by 06/18/13 0000 b y 06/18/13 Kim Morrison Knowles, Da wn M, RN RN PIV 06/16/13; 0201; 06/16/13 0201 by 06/18/13 0000 b y 06/18/13 Kim Morrison Knowles, Da wn M, RN RN (RETIRED) Mask Ventilation: 06/16/13 0442 by 06/20/13 1435 by compa Non-Surgical Airway Adjunct (2) (2 person 2 Mary Galeano Krebs-Cintorino, hand mask with OA MD Pancho Gilbert, CANDELARIA without difficulty. ); ETT Type: Cuffed; ETT Size: 7.5 mm; Oral Airway: 100 mm (5) (RETIRED) NG/OG Tube L Naris; Nasogastric 06/16/13 0453 by 06/16 2100 by Kimo Yusuf RN Incision 06/16/13; 0459; 06/16/13 0459 by 06/19/13 0000 b y abdomen; 06/19/13 Margaret Gong RN Knowles, Dawn M, RN documented in this encounter Social History [...] encounter OR Notes Anesthesia Postprocedure Evaluation - Jesús Robbins MD - 06/16/2013 7:27 AM EST Patient: Leroy Torres Procedure(s) Performed: Procedure(s): LAPAROSCOPIC APPENDECTOMY Actual Anesthetic: general Patient location: ICU Post-op pain: Adequate analgesia, intubated and sedated Post-op nausea: no nausea or vomiting Last Vitals: Filed Vitals: 06/16/13 0703 BP: Pulse: Temp: Resp: 10 Post-op cardiovascular and respiratory status: is stable, intubated, ventilated and on pressor (low dose dopamine) Level of consciousness: sedated Complications: no apparent complications, continued hydration and perfusion to optimize graft support given renal transplant. Antibiotic coverage prior to the OR. Fluid Status: normal, 2 additional liters NS in the OR Anesthesia Preprocedure Evaluation - Devin Gonzalez MD - 06/16/2013 4:14 AM EST Pre-Anesthesia Evaluation for: Leroy Torres a 58 y.o. male. Procedure(s): LAPAROSCOPIC APPENDECTOMY Patient Active Problem List Diagnosis ??? History of renal transplant ??? [...] BELOW-KNEE performed by HENNA GAMINO JR at [facility] MA[facility] OR History Substance Use Topics ??? Smoking status: Former Smoker -- 2.0 packs/day for 20 years Types: Cigarettes Quit date: 01/19/1993 ??? Smokeless tobacco: Never Used ??? Alcohol Use: Yes rare History Drug Use No Allergies Allergen Reactions ??? Penicillins Anaphylaxis ??? Iftikhar Inhibitors Cough ??? Clindamycin Hcl Rash ??? Allergenic Extracts Birch and Nut Trees, cats, dust, pollen Medications: MAR and/or home medications have been reviewed. Physical Exam: There were no vitals filed for this visit. There is no height or weight on file to calculate BMI. Airway Assessment: Mallampati: III TM distance: >3 FB Neck ROM: full Cardiovascular Assessment: Rhythm: regular Rate: normal Pulmonary Assessment: (+) wheezes Dental Assessment: (+) upper dentures Misc Assessment: IV access: Peripheral line Anesthesia Plan: ASA 3 emergent general, with a(n) intravenous induction 58 y/o M with PMHx of HTN, DMII (on insulin, last A1c in 8 range), asthma, CRF s/p renal transplant who presents for laparoscopic appendectomy. Plan for GETA, arterial monitoring, adequate IV access. Region - Other Informed Consent: Anesthetic plan and risks discussed with patient and mother. Use of blood products discussed with patient and mother whom consented to blood products. [facility]. Assessment: documented in this encounter Miscellaneous Notes Addendum Note - Devin Gonzalez MD - 06/20/2013 12:29 PM EST Addendum created 06/20/13 1229 by Devin Gonzalez MD Modules edited:Anesthesia LDA Addendum Note - Jesús Robbins MD - 06/16/2013 7:34 AM EST Addendum created 06/16/13 0734 by Jesús Robbins MD Modules edited:Anesthesia Attestations Addendum Note - Jesús Robbins MD - 06/16/2013 7:34 AM EST Addendum created 06/16/13 0734 by Jesús Robbins MD Modules edited:Anesthesia Attestations documented in this encounter Plan of Treatment Upcoming Encounters Date Type Specialty Care Team Description 05/26/2022 Office Visit Otolaryngology Ricardo Panda PA [facility] [address] [place], [place] [address] (Wo rk) 06/02/2022 Infusion Hematology and Oncology 06/16/2022 Infusion Hematology and Oncology 06/21/2022 Office Visit Neurology Tyler Rojas MD [facility] Neurology [place], [place] [phone] (Wo rk) 06/30/2022 Infusion Hematology and Oncology 07/14/2022 Infusion Hematology and Oncology 07/28/2022 Infusion Hematology and Oncology 08/11/2022 Infusion Hematology and Oncology 11/04/2022 Office Visit Rheumatology Dante Freedman PA [facility] RHEUMATOLOGY [place], [place] [address] (Wo rk) documented as of this encounter Visit Diagnoses Not on filedocumented in this encounter Administered Medications Inactive Administered Medications - up to 3 most recent administrations Medication Order MAR Action Action Date Dose Rate Site DOPamine 1,600 mcg/mL Rate/Dose Change 06/16/2013 6:03 6 mcg/kg/min 3 3.1 mL/hr (standard ADULT & Sam AM EST greater than 20kg) infusion CONTINUOUS PRN, Starting on 06/16/13 at 0503, Until 06/16/13 at 0656, Initiate dopamine drip if {DOPAMINE INITIATION:}. Titrate to keep {DOPAMINE TITRATION:}. Increase in 2 mcg/kg/min increments. Do not exceed 20 mcg/kg/min. Discontinue dopamine if patient able to maintain {DOPAMINE DISCONTINUATION:} without dopamine infusion., Anesthesia Intra-op, Routine Rate/Dose Change 06/16/2013 5:58 AM EST 5 mcg/kg/min 27.6 mL/hr Rate/Dose Change 06/16/2013 5:54 AM EST 3 mcg/kg/min 16.6 mL/hr fentaNYL 50mcg/mL injection Given 06/16/2013 5:07 AM EST 100 mcg PRN, Starting on 06/16/13 at 0438, Until 06/16/13 at 0656, Pain, Anesthesia Intra-op, Routine Given 06/16/2013 4:38 AM EST 150 mcg heparin (porcine) subcutaneous injection Given 06/16/2013 5:13 AM EST 5,000 Units PRN, Starting on 06/16/13 at 0513, Until 06/16/13 at 0656, Anesthesia Intra-op, Routine PHENYLephrine HCl in NS (PF) (SHELLEY-SYNEPHRINE) Given 4:50 AM EST 80 mcg 0.8 mg/10 mL (80 mcg/mL) injection Syrg PRN, Starting on 06/16/13 at 0450, Until 06/16/13 at 0656, Anesthesia Intra-op, Routine propofol (DIPRIVAN) 10 mg/mL bolus injection Given 4:39 AM EST 200 mg (Anesthesia) PRN, Starting on 06/16/13 at 0439, Until 06/16/13 at 0656, Anesthesia Intra-op propofol (DIPRIVAN) infusion New Bag 06/16/2013 6:04 AM 30 mcg/kg/min 26.5 mL/hr CONTINUOUS PRN, Starting on EST 06/16/13 at 0604, Until 06/16/13 at 0656, Anesthesia Intra-op, Routine rocuronium (ZEMURON) injection Given 06/16/2013 4:39 AM EST 80 mg PRN, Starting on 06/16/13 at 0439, Until 06/16/13 at 0656, Anesthesia Intra-op, Routine sodium chloride 0.9% infusion New Bag 06/16/2013 4:27 AM EST mL CONTINUOUS PRN, Starting on 06/16/13 at 0427, Until 06/16/13 at 0656, Anesthesia Intra-op sodium chloride 0.9% infusion New Bag 06/16/2013 4:45 AM EST mL CONTINUOUS PRN, Starting on 06/16/13 at 0445, Until 06/16/13 at 0656, Anesthesia Intra-op documented in this encounter Care Teams General Medical Practitioner Relationship Specialty Start Date End Date Dc Ibanez MD PCP - General 04/02/13 04/01/14 [address] [facility] [place] [address] documented as of this encounter
--- OUTSIDE RECORDS SUMMARY | 2022-05-24 10:58 | XMS_ITS | Encounter Summary ---
:1955 Author Organization [facility] Address [address] [address] Care Team Providers Name Role Phone Dc Ibanez MD Primary Care Provider Encounter Details Date Type Department Care Team Description 05/31/2013 Follow-Up Neurology at [facility] Angel Boyd MD Tremor, essential [facility] (Pr imary Dx) [place] [address] NEUROLOGY DEPT. [phone] [place] [phone] (Wo rk) Social History Tobacco Use Types [...] Reading Time Taken Comments Blood Pressure 129/59 05/31/2013 10:01 AM EST Pulse 65 05/31/2013 10:01 AM EST Temperature - - Respiratory Rate - - Oxygen Saturation - - Inhaled Oxygen Concentration - - Weight 149.7 kg (330 lb) 05/31/2013 10:01 AM EST Height 188 cm (6' 2) 05/31/2013 10:01 AM EST Body Mass Index 42.37 05/31/2013 10:01 AM EST documented in this encounter Progress Notes Angel Boyd MD - 05/31/2013 10:44 AM EST I saw Leroy Torres today in followup in the company of his and daughter. He has had both legs amputated now and fitted with comfortable, effective prostheses. This allows him some degree of ability to ambulate at home. He can travel short distances by walking. Initially the first few steps are aided by a cane. After that, he sometimes will simply carry the cane as a backup. At home, if he is doing work in the garage or elsewhere, he is more likely to use the wheelchair for prolonged projects. He also has a walker for circumstances in which that would be the most useful. Tremor is variable, but he can get most tasks done with his current dose of Inderal. He and I are both reluctant to change his medication regimen since things seem to be on an even keel, with regard to his diabetes, kidney function, and so forth. He is in the process of being assessed by his diabetic and transplant teams as to the best method for him to get a colonoscopy without damaging either health consideration. Fifteen minutes of our 25-minute visit today were in supportive counseling and therapeutic planning with regard to these issues. I will see him back in followup in the spring. documented in this encounter Plan of Treatment Upcoming Encounters Date Type Specialty Care Team Description 05/26/2022 Office Visit Otolaryngology Ricardo Panda PA [facility] [address] [place] [address] (Oscar escobedo) 06/02/2022 Infusion Hematology and Oncology 06/16/2022 Infusion Hematology and Oncology 06/21/2022 Office Visit Neurology Tyler Rojas MD [facility] Dr [address] [place], [place] [phone] (Wo gregg) 06/30/2022 Infusion Hematology and Oncology 07/14/2022 Infusion Hematology and Oncology 07/28/2022 Infusion Hematology and Oncology 08/11/2022 Infusion Hematology and Oncology 11/04/2022 Office Visit Rheumatology Dante Freedman PA [facility] RHEUMATOLOGY [place], [place] [address] (Wo rk) documented as of this encounter Visit Diagnoses Diagnosis Tremor, essential - Primary Essential and other specified forms of t remor documented in this encounter Care Teams Financial Adviser Relationship Specialty Start Date End Date Dc Ibanez MD PCP - General 04/02/13 04/01/14 ANAMARIA [address] [place] [address] documented as of this encounter
--- OUTSIDE RECORDS SUMMARY | 2022-05-24 10:58 | XMS_ITS | Encounter Summary ---
:1955 Author Organization [facility] [place] [address] Care Team Providers Name Role Phone Dc Ibanez MD Primary Care Provider Encounter Details Date Type Department Care Team Description 06/15/2013 Orders Only Solid Organ Transplant at Angel Evangelista MD [facility] Giovana tyler [place] [address] [place] [address] [phone] (Wo rk) Social History Tobacco Use Types [...] Panda PA [facility] [place] [address] (Wo rk) 06/02/2022 Infusion Hematology and Oncology 06/16/2022 Infusion Hematology and Oncology 06/21/2022 Office Visit Neurology Tyler Rojas MD [facility] Medical [facility] er Neurology [place], [place] [phone] (Wo rk) 06/30/2022 Infusion Hematology and Oncology 07/14/2022 Infusion Hematology and Oncology 07/28/2022 Infusion Hematology and Oncology 08/11/2022 Infusion Hematology and Oncology 11/04/2022 Office Visit Rheumatology Dante Freedman PA [facility] ER RHEUMATOLOGY [place], [place] [address] (Wo rk) Pending Results Name Type Priority Associated Diagnoses Date/Ti ok Film Library- Storage Imaging Routine 2012 12:[address] abdomen & pelvis documented as of this encounter Visit Diagnoses Not on filedocumented in this encounter Care Teams District Sales Leader Relationship Specialty Start Date End Date Dc Ibanez MD PCP - General 04/02/13 04/01/14 ANAMARIA [address] [place] [address] documented as of this encounter
--- OUTSIDE RECORDS SUMMARY | 2022-05-24 10:58 | XMS_ITS | Encounter Summary ---
:1955 Author Organization [facility] Address [address] [place] [address] Care Team Providers Name Role Phone Dc Ibanez MD Primary Care Provider Reason for Visit Reason Onset Date Comments Medication Refill 05/23/2013 Encounter Details Date Type Department Care Team Description 05/23/2013 Refill Neurology at [facility] Angel Boyd MD Tremor, essential [facility] (Pr imary Dx) [place] [address] NEUROLOGY DEPT. [phone] [place] [phone] (Wo rk) Social History Tobacco Use Types [...] this encounter Miscellaneous Notes Telephone Encounter - Diana Lucas LPN - 05/23/2013 2:07 PM EDT Last Rx written 04/19/12 for 1 year supply. Telephone Encounter - JohnAria baca James - 05/23/2013 1:20 PM EDT Name of Med: Propranolol Strength of Pills: 150 mg Dosing Directions: Take 1 capsule by mouth twice a day 30 or 90 Day: 90 day supply Pharmacy: [place], [place] Last Appointment: 04/19/2012 Next Appointment: 06/20/2013 documented in this encounter Plan of Treatment Upcoming Encounters Date Type Specialty Care Team Description 05/26/2022 Office Visit Otolaryngology Ricardo Panda PA [facility] [address] [place], [place] [address] (Wo rk) 06/02/2022 Infusion Hematology and Oncology 06/16/2022 Infusion Hematology and Oncology 06/21/2022 Office Visit Neurology Tyler Rojas MD [facility] Neurology [place], [place] [phone] (Wo rk) 06/30/2022 Infusion Hematology and Oncology 07/14/2022 Infusion Hematology and Oncology 07/28/2022 Infusion Hematology and Oncology 08/11/2022 Infusion Hematology and Oncology 11/04/2022 Office Visit Rheumatology Dante Freedman PA [facility] RHEUMATOLOGY [place], [place] [address] (Wo rk) documented as of this encounter Visit Diagnoses Diagnosis Tremor, essential - Primary Essential and other specified forms of t remor documented in this encounter Care Teams Dicer Operator Relationship Specialty Start Date End Date Dc Ibanez MD PCP - General 04/02/13 04/01/14 ANAMARIA [address] [place] [address] documented as of this encounter
--- OUTSIDE RECORDS SUMMARY | 2022-05-24 10:58 | XMS_ITS | Encounter Summary ---
:1955 Author Organization [facility] [place] [address] Care Team Providers Name Role Phone Dc Ibanez MD Primary Care Provider Encounter Details Date Type Department Care Team Description 06/16/2013 Surgery Main Operating Room Tammy Mccann LAP AROSCOPIC [facility] APPENDECTOMY (WRVU 9.45) [facility] DR Sloan [place] [address] [place], [place] [id number] [phone] (Wo rk) Social History Tobacco Use Types [...] Sign Reading Time Taken Comments Blood Pressure 131/59 06/27/2013 11:53 AM EST Pulse 61 06/27/2013 11:53 AM EST Temperature 37.1 ??C (98.8 ??F) 06/27/2013 9:00 AM EST Respiratory Rate 19 06/27/2013 9:00 AM EST Oxygen Saturation 96% 06/27/2013 9:00 AM EST Inhaled Oxygen - - Concentration Weight 145.3 kg (320 lb 5.3 06/26/2013 6:25 PM oz) EST Height 195.6 cm (6' 5) [...] may be used if needed and are jeqx-wwy-xewbnrm (OTC) medications available at most [facility]. Prunes or prune juice, taken daily, can [...] 2 weeks. Your surgeon may not be Parking Meter Installer, especially during the night or on weekends, [...] diabetes mellitus with neurological manifestations, uncontrolled(250.62) Insulin [place], by Other route. 1 [address] [...] 06/27/2013 12:00 PM EST Patient discharged to [facility] in [place], [place]. Patient has a triple lumen PICC [...] prescriptions given to ambulance service. Patient dischargedto [facility] via ambulance. Report called to [facility]. Char Morales MD - 06/27/2013 [...] and flagyl per ID Char Mclaughlin Pager -[phone] Sylvia Remy RN - 06/27/2013 9:01 AM EST Patient Name: Leroy Dailey : 1955 Patient has been offered a swing bed at [facility] for today. Please call Dr. Sylvia Sommers at [phone] for report. Please call Nursing Report to , ask for inspector grain mill products. Info to accompany patient: Copies of Medication Administration Records and IV sheets for past two weeks. Rd arranging ambulance pickup for noon. Ambulance will need: Medicare ambulance form completed and signed (MD or CRC) Copy of patient demographics [place] [facility] DNR/DNI order, if active Patient will be discharged to: [facility] [address] [place] [address] Plan: Molder Helper will be available to the patient and CRC for further assistance. Sylvia Remy RN Pager [phone] lAicja Mckay OTA - 06/26/2013 4:08 PM EST Occupational Therapy Treatment Note Visit #: 2 Patient Dx: Leroy Dailey is a 58 y.o. male patient of Ev Bennett,*, admitted on06/16/2013 in transfer from [facility] for abdominal pain and fever. He underwent 06/16/13 LAPAROSCOPIC APPENDECTOMY. He had some post op issues with hypotension. PICC was placed in [facility] on 06/16/13; he is on Vanco. He has had issues with fevers and tremors; he was seen by Neuro and he has baseline tremors. He was extubated on 06/20/13, has had and altered mental status, and was transferred to [facility] on 06/22/13. Precautions/Special Considerations: consuelo AKA, fall [...] functional activity. 2. Pt will transfer to [facility] with one person assist and appropriate [...] 10 minutes for SCM x 1 Pager: [phone] JARRET MARTINEZ Occupational Therapy Rehabilitation Department Ryland Wilkins, PT - 06/26/2013 3:27 PM EST Physical Therapy Treatment Note Visit # 3 Patient Dx: Pt. is a 58 y.o. male admitted on 06/16/2013 by Ev Bennett in transferfrom OSH for abdominal pain and fever. He underwent 06/16/13 LAPAROSCOPIC APPENDECTOMY. He had some post op issues with hypotension. PICC was placed in [facility] on 06/16/13; he is on Vanco. He has had issues with fevers and tremors; he was seen by Neuro and he has baseline tremors. He was extubated on 06/20/13, has had and altered mental status, and was transferred to [facility] on 06/22/13. Precautions: consuelo. BKA with prosthesis, [...] interventions: 30 minutes functional activity training Pager: [phone] Ryland Wilkins PT Physical Therapy Rehabilitation Department Mer Merchant RN - 06/26/2013 3:04 PM EST Care Management/ CRC Pager# [phone]/ Discharge planning S: Going to [facility] (swing bed level) tomorrow would be perfect. Thanks [facility] for your help. An ambulance pick-up at about 11 would be great. O: Discussion with Molder Helper Sylvia Remy. No bed offer at [facility] or [facility] today. [facility] has offered swing bed for patient transfer tomorrow. Message to Dr. Weber about discharge plan. A/P: Research Group Director will follow up in am for completion of discharge planning. Sylvia Herman RN - 06/26/2013 2:43 PM EST [facility] can offer a bed to pt on Tuesday but not today. [facility] unable to get an answer from the doctor as to accepting as he is unavailable. SYLVIA REMY, RN Erik Mancilla MD - 06/26/2013 9:20 AM EST TRANSPLANT NEPHROLOGY follow-up PATIENT: Leroy Dailey : 1955 REASON FOR CONSULTATION: immunosuppressant management referred by Dr. Mccann H: ESRD secondary to presumed diabetic nephropathy s/p [...] appy Antibiotics -levaquin and flagyl per ID hCar Mclaughlin Pager -[phone] Transplant Nephrology Staff: Patient seen and discussed with Dr. Mclaughlin and I agree with his note and make the following additional comments: I performed my own history and exam. The conclusions and discussion were formulated together and reflect my input. Patient is feeling better and anxious for rehab in [facility]. He was treated with lasix for [...] last 3 completed shifts: In: 3128 [P.O.:1080; I.V.:2047] Out: 5645 [Urine:5645] I/O this shift: In: [...] the recommendations which accurately reflect mine. Eda Weber - 06/25/2013 4:43 PM EST Transplant Surgery [...] 2:47 PM EST Care Management/ CRC pager# [phone]/ Transfer note and Discharge planning S: I [...] afternoon. Patient lives with his mother in [facility]. Patient has Medicare (Parts A,B and D). Patient has submitted [place] Medicaid application, but unclear when this might become effective. No Advance Directives on file here at [facility]. Patient has history of Type 2 DM. S/p bilateral below knee amputations (has prostheses). S/p donor kidney transplant 2007. Patient is S/P laparoscopic appendectomy on 06/16. Extubated on 06/20. Patient transferred to [address] [place] [address] 325 on 06/22. Per Dr. Weber, patient [...] qday. PT/OT. Message to Sylvia Remy RN Molder Helper about patient's request for referrals. A/P: I will continue in CRC role, coordinating patient's discharge planning. Ryland Wilkins PT - 06/25/2013 1:49 PM EST Physical Therapy Treatment Note Visit # 3 Patient Dx: Pt. is a 58 y.o. male admitted on 06/16/2013 by Ev Bennett, in transferfrom OSH for abdominal pain and fever. He underwent 06/16/13 LAPAROSCOPIC APPENDECTOMY. He had some post op issues with hypotension. PICC was placed in [facility] on 06/16/13; he is on Vanco. He has had issues with fevers and tremors; he was seen by Neuro and he has baseline tremors. He was extubated on 06/20/13, has had and altered mental status, and was transferred to [facility] on 06/22/13. Precautions: consuelo. BKA with prosthesis, [...] interventions: 45 minutes functional activity training Pager: [phone] Ryland Wilkins PT Physical Therapy Rehabilitation Department Shira Lam RD - 06/25/2013 1:32 PM EST Nutrition [...] with minerals qd (X) See weekly Jackie Chapman APRN - 06/25/2013 12:17 PM EST Follow [...] 4 grams of carb Mechanical soft diet Recent Glucose Levels Recent Labs Basename 06/25/13 [...] with RN and/or primary team, TPN team, casting and pasting supervisor and/or diabetes nurse educator, etc). JACKIE VARGAS APRN 06/25/2013 12:27 PM Patricia Farah SLP - 06/25/2013 9:08 AM EST Speech-Language Pathology [...] seen for swallow f/u. Pt upgraded to [facility] soft, regular liquids yesterday. Goals: Pt will [...] are in agreement with plan of treatment. Ptaricia Farah MA, [facility]-BINDERY MACHINE OPERATOR Inpatient Rehabilitation Medicine pager:# [phone] Alejo Mandujano MD - 06/25/2013 8:52 AM EST TRANSPLANT NEPHROLOGY follow-up PATIENT: Leroy Dailey : 1955 REASON FOR CONSULTATION: immunosuppressant management referred by Dr. Mccann [facility]: ESRD secondary to presumed diabetic nephropathy s/p donor kidney transplant on 02/29/08 Diabetes Mellitus S/p bilateral BKA Asthma, nasal polyps. Essential tremor. Hypertension. GERD. Hydrocele. Subjective/24h interval history Feels well, eating better, tremors well controlled; wants to go to rehab an prefers [facility] swing bed TRANSPLANT HISTORY Type of donor: [...] and flagyl per ID Char Mclaughlin Pager -[phone] I examined the patient, reviewed all of the above findings and assessment of Dr. Mclaughlin and formulated the recommendations which accurately reflect mine. Monico Hawley RN - 06/24/2013 6:14 PM EST [facility] Telemetry Note Subjective: Patient resting comfortably. Patient denies chest pain, nausea, shortness of breath. Objective: Vital signs as noted in doc flowsheets. HR 55-70 Assessment: Occasional PAC, Rare PVC Plan: Continue tele monitoring. RN will monitor patient. Lele Farley, PT - 06/24/2013 5:33 PM EST Physical Therapy Treatment Note Visit #: 2 Patient Dx: Pt. is a 58 y.o. male admitted on 06/16/2013 by Ev Bennett, in transferfrom OSH for abdominal pain and fever. He underwent 06/16/13 LAPAROSCOPIC APPENDECTOMY. He had some post op issues with hypotension. PICC was placed in [facility] on 06/16/13; he is on Vanco. He has had issues with fevers and tremors; he was seen by Neuro and he has baseline tremors. He was extubated on 06/20/13, has had and altered mental status, and was transferred to [facility] on 06/22/13. Precautions:Considerations: consuelo. BKA with prosthesis, [...] 10 mins this late afternoon/early evening on [facility] for ther-ex and pt education; Girlfriend, Linda, [...] patient: 10 minutes Total timed interventions: 10 [id number] Pager: [phone] FARLYE, PT Physical Therapy Rehabilitation Department Hedy Garcia BINDERY MACHINE OPERATOR - 06/24/2013 3:23 PM EST Speech-Language Pathology Progress Note Total Treatment Time: 28 min. swallow tx Total Timed Code Treatment: 0 min. S: ?? Pt denies pain at this time. ?? Pt w/ increased alertness compared to previous BINDERY MACHINE OPERATOR visit. Tolerating full liquid diet well per [...] PO intake. Education provided re: role of BINDERY MACHINE OPERATOR and likely progression to numerous family present throughout tx session. Communicated recommendations to RN and MD. A: Dx: Positive outward s/s of Oropharyngeal Dysphagia secondary to mildly delayed pharyngeal trigger and effortful clearance of likely pharyngeal residue. Pt appropriate to upgrade to mechanical soft diet w/thin liquids. Primary BINDERY MACHINE OPERATOR to resume care tomorrow (Patricia Farah, #[phone]) Recommendations: Diet: mechanical soft diet, thin liquids Follow standard Aspiration Precautions (Feed only when alert; Sit upright for all PO intake; Small, single bites and sips; Remain upright for 10-15 minutes after PO intake) P: Continue Speech Pathology treatment / monitoring 3-5x/week while hospitalized. Pt./Family are in agreement with plan of treatment. Hedy Arrington MS, [facility]-BINDERY MACHINE OPERATOR Inpatient Rehabilitation Medicine pager:# [phone] IN VillalbaronGreg - 06/24/2013 1:36 PM EST Data Entry Clerk Encounter Note Patient Name: Leroy Dailey : [id number] MR#: [id number] Admit Date: 06/16/2013 12:43 AM Hospital Day 8 days Narrative:Visited to introduce and assess acceptance of Data Entry Clerk services. Assessment:Patient coping positively with stresses of illness/hospitalization at this time. Pt says that he is feeling better and pt three family members were. Pt is hoping good health and having good time with family. Intervention and Outcome: pt has family care and support. Provided spiritual and emotional support. Data Entry Clerk services accepted. Conversation to build trusting relationship. Provided pastoral presenceand listening presence. Follow-up: Follow-up visit for continued assessment and support. Time in Direct Care:10 Mins Greg Rich 06/24/2013 Donell Chong MD - 06/24/2013 8:10 AM EST Patient [...] - Took 490 po of liquid diet, BINDERY MACHINE OPERATOR revisit pending this AM - CMP not [...] NGT out yesterday, will be seen by BINDERY MACHINE OPERATOR today. Boost shakes written for TID. Prograf [...] NTD SQH DVT prophylaxis GI: NPO, repeat BINDERY MACHINE OPERATOR eval Boost shakes FEN: Continue IVF @ 75NS - until full diet ENDO: Insulin Regimen: levamir may need to increase as higher po, currently controlled Other none Immuno ID: Prophylaxis: Treatment: Prograf recheck of level, 07/25 today recheck tuesday Cellcept 500 po BID administration today ABX: levo/flagyl PO today 2/ 8 days Lines: continue Chang PICC IV Dispo: [...] function is excellent. Stable, floor status. Rebekah Green RN - 06/23/2013 6:46 PM EST Pt got up to chair with PT today, upon sitting up in bed PT reported NG tube got caught on other equipment and was pulled out of nares about 15 cm. This RN secured NG tube with tape at 50 cm, stopped the continuous tube feeding and notified MD. MD removed NG tube and ordered pt a [...] NTD SQH DVT prophylaxis GI: NPO, repeat BINDERY MACHINE OPERATOR eval Tube feeds @goal rate 54 FEN: Continue IVF @ 75NS Continue TF ENDO: Insulin Regimen: consult endocrinology, transition to higher SSI Other none Immuno ID: Prophylaxis: Treatment: Prograf recheck of level, 07/25 today recheck tuesday Cellcept 250 po BID administration today ABX: levo/flagyl PO today 8 days Lines: continue Chang PICC IV Dispo: [...] to remove NGT and start diet. Rebekah Green RN - 06/22/2013 3:16 PM EST Patient [...] the patient. Dustin Haywood MD Patricia Farah, BINDERY MACHINE OPERATOR - 06/22/2013 10:24 AM EST Speech-Language Pathology [...] follow 3-5x/week while hospitalized. Will ask Tuesday BINDERY MACHINE OPERATOR to check in on pt, see if [...] any questions or concerns. Patricia Farah MA [facility]-BINDERY MACHINE OPERATOR Inpatient Rehabilitation Medicine Pager:#[phone] Ev Buckner MD - 06/22/2013 8:01 AM [...] NTD SQH DVT prophylaxis GI: NPO, failed BINDERY MACHINE OPERATOR eval Tube feeds @40, goal rate 54 [...] UA Negative Appearance UA Clear Clear Spec Gravel Switch UA 1.011 1.002 - 1.030 Color UA [...] Range Ab Screen Interp Negative Specimen OD [id number] POCT GLUCOSE Component Value Range POC Glucose [...] Please call with any further questions Demar Fernandez DO Resident in Neurology Neurology (Staff) Addendum I [...] In: 2576 [I.V.:2481; NG/GT:70; IV Piggyback:25] Out: 12085 [Urine:9850; Emesis/NG output:450] General : NAD, awake but not oriented Lungs: Clear to auscultation bilaterally, respirations unlabored Heart: Regular rate and rhythm Abdomen: Soft, distended, not apparently tender, bowel sounds active, wound at umbilicus with some slight serous discharge and ?erythema, otherwise c/d/i : Clear urine in chang Other: New PICC Labs: Recent Labs Basename 11/28/13 0430 06/20/13 0500 06/19/13 1000 WBC 6.0 [...] NTD SQH DVT prophylaxis GI: NPO, failed BINDERY MACHINE OPERATOR eval Keep NGT FEN: Continue IVF Continue [...] stable Stable, will be transferred to the [facility] pending bed availability today Shell Motta - 06/20/2013 6:25 PM EST Data Entry Clerk Encounter Note Patient Name: Leroy Dailey : [id number] MR#: [id number] Admit Date: 06/16/2013 12:43 AM Hospital Day 4 days Narrative: Patient recently had intubation equipment removed and family present were attempting to assist in his regaining consciousness. This health underwriter spoke with family regarding patient's accident and hopes for recovery. Present were patients partner, mother and two close friends. Assessment: Family appears to be dealing with current crisis in a positive manner. Intervention and Outcome: Offered supportive listening. Follow-up: None requested. Time in Direct Care: 20 minutes Shell Motta 06/20/2013 Patricia Kelsey BINDERY MACHINE OPERATOR - 06/20/2013 3:27 PM EST Speech-Language Pathology [...] / progression. Thank you. Patricia Farah MA [facility]-BINDERY MACHINE OPERATOR Inpatient Rehabilitation Medicine pager:# [phone] Mulugeta Weiss MD - 06/20/2013 2:58 PM [...] minutes MULUGETA CAMEJO MD 06/20/2013 Ev Bolanos [facility] - 06/20/2013 2:45 PM EST Extubation Note [...] performed by HENNA GAMINO JR at [facility] MAIN OR ??? Lap, appendectomy 06/16/2013 LAPAROSCOPIC APPENDECTOMY performed by Tammy Mccann MD at [facility] MAIN OR Weight: 114.1 kg - likely [...] PHOS 3.6 06/17/2013 Nutrition needs assessed at: 4201-1704 calories (based on IBW) ~80 gm protein [...] 29.3* PLATELET 139* 132* 112* [facility] 06[facility]16[facility]13 0700 PT 17.2* PTT -- INR 1.4* Recent Labs Basenam 06/20/13 0800 06/20/13 0500 06/19/13 2356 06/19/13 [...] Likely transfer to the floor tomorrow. Alejo Mandujano MD - 06/20/2013 8:47 AM EST TRANSPLANT NEPHROLOGY follow-up PATIENT: Leroy Dailey : 1955 REASON FOR CONSULTATION: immunosuppressant management referred by Dr. Mccann [facility]: ESRD secondary to presumed diabetic nephropathy s/p [...] and meopenem Pt febrile Char Mclaughlin Pager -[phone] I examined the patient, reviewed all of [...] vol. Throughout the night pt transitioned to PS. Leroy completed his SBT well. Noel Horn RT [...] and meopenem Pt febrile Char Mclaughlin Pager -[phone] I examined the patient, reviewed all of [...] + PS PS SIMV Vol + PS (AB./) Resp. Rate Set 20 -- 20 Tidal [...] trend of increasing etCO2 to 50. ABG 7.16/45/. Patient placed back on SIMV mode. Noel [...] 40 minutes MULUGETA CAMEJO MD 06/18/2013 Yohana Trinh RN - 06/18/2013 10:13 AM EST CLINICAL COMMISSION AGENT LIVESTOCK (CRC) Office of Care Management Yohana Ballard RN, CRC Phone [phone] Pager # [phone] INITIAL ASSESSMENT: Reviewed record; interviewed pt's mother, [...] had inpatient rehab following last BKA at [facility] swing bed. Mother states he didn't like it, but will appreciate that he must be independent enough to safely returnhome, as he is a large man, and mother is a small woman, with limited ability to physically help him. INSURANCE COVERAGE/FINANCIAL ISSUES: Medicare AB and prescription coverage. Pt's mother states that pt has submitted an application to [place] Medicaid, but has not yet heard back. ADVANCE DIRECTIVES: None scanned. Mother and girlfriend state pt does not have these. REHAB TEAM CONSULTS: Will need PT when clinically appropriate for mobilization, assessment of discharge planning needs. RETAIL PRESENTATION SPECIALIST REFERRAL: When pt is awake and alert, will ask RETAIL PRESENTATION SPECIALIST to check in with pt regarding willingness [...] on above settings. No changes made. Gentry Adams MD - 06/17/2013 2:44 PM EST STAFF [...] %] I/O last 3 completed shifts: In: 96377 [I.V.:54767; NG/GT:120] Out: 2955 [Urine:2855; Blood:100] I/O this [...] 0100 - Pt received via stretcher from [facility]. Pt aaox4. PIV access leaking, IV team notified for IV placement. MD team notified of pt arrival. Pt states pain /10 to RLQ, pain increased upon palpation slightly. 0200 - Labs sent as ordered 0300 - K 6.9, Dr. Segovia notified. Orders received. 0315 - Pt transported to [facility] via stretcher for PA/LAT. 0400 [...] Note ID: 58 y.o. Male presents to [facility] with acute abdominal pain, now s/p laparoscopic [...] performed by HENNA GAMINO JR at [facility] MAIN OR Prior To Admission Medications: Prescriptions [...] as needed. 64 g 11 ??? Insulin [place], Disposable, (BD INSULIN PEN NEEDLE UF SHORT) [...] 31 x 5/[address] [facility]Non-Drug; Combo Route) route 2 times daily. 200 [...] OSH Assessment: 58 y.o. Male presents to [facility] with acute abdominal pain, now s/p laparoscopic [...] Admission H&P Patient Name: Leroy Dailey : [id number] MR#: [id number] 06/16/2013 Hospital Day 0 days ID: 58 [...] performed by HENNA GAMINO JR at [facility] MAIN OR Allergies: Allergies Allergen Reactions ??? [...] as needed. 64 g 11 ??? Insulin [place], Disposable, (BD INSULIN PEN NEEDLE UF SHORT) [...] 31 x 5/16 Syrg [facility]Non-Drug; Combo Route) route 2 times daily. 200 [...] HTN medications (propranolol) Booking case for appendectomy. CARTER SEGOVIA MD 06/16/2013 I have seen and [...] 06/28/2013 1:29 PM ESTAssociated Order(s): SCAN DOC: SCHOOL OPERATIONS MANAGER Provider, Scanning - 06/28/2013 1:29 PM ESTAssociated Order(s): SCAN DOC: SCHOOL OPERATIONS MANAGER Elizabeth Arguelles APRN - 06/18/2013 9:51 AM [...] to the planned procedure. Hand Hygiene: The quality assurance qa lab technician did perform hand hygiene prior to line insertion. Catheter type: PICC Lot number: [id number] Procedure Technique: Skin was prepped with chlorhexidine. [...] date and time: 06/27/2013 Attending Physician: Ev Buckner,Yulissa Discharge Diagnoses (Hospital Problems) and Secondary Diagnoses [...] needed. Qty: 64 g Refills: 11 Insulin [place], Disposable, (BD INSULIN PEN NEEDLE UF SHORT) [...] 5/16 Syrg [address] [facility]Non-Drug; Combo Route) route 2 times daily. Qty: [...] may be used if needed and are hsvq-oue-fclbkps (OTC) medications available at most [facility]. Prunes or prune juice, taken daily, can [...] 2 weeks. Your surgeon may not be Parking Meter Installer, especially during the night or on weekends, so be ready to describe yourself and your surgery when you call. Future Appointments and Orders Future Appointments: Provider: Department: Dept Phone: Center: 08/06/2013 1:00 PM Donell Hernandez MD Endocrinology [phone] [facility] Joint Appt Endo Lab Resource Endocrinology [phone] [facility] Electronically Signed by: EDA WEBER MD 06/26/2013 Consult Note - Carlos Sr RN - 06/25/2013 4:15 PM EST Certified Wound Care Nurse Note Situation: Follow up with thiokol operator for Leroy Dailey r/t injury at left nare; patient has been transferred from ICU to 3W. Background: eDH notes reviewed for history, admitting diagnosis and active problem list. Assessment: Telephone conversation with thiokol operator caring for patient r/t wound at left nare, reviewedCWCN plan of care with thiokol operator. Recommendations: Follow plan of care as outlined below. Wound Care Recommendations: Left nares 1. Cleanse area with normal saline of dermal wound cleanser 2. Apply Aloe [place] protective ointment to area BID and prn [...] gently after each incontinence episode with Aloe [place] Personal Cleanser. Apply Protective Ointment to perineal area bid and prn. Assess skin for fungal infections, notify provider. Activity: Implement reminder system for repositioning every two hours while in bed Nutrition: Evaluate nutrition/hydration status. Follow manifold builder recommendations Mobility: Turn and reposition every 2 [...] or equal to 30 degrees. Use Aloe [place] Skin Conditioner #2 after baths for extra dry skin. Follow-up: Will plan to follow patient on Tuesday, 2012. Discussed plan with: RN: Shandra Please contact CARLOS SR RN at [phone] or pager [phone] or the wound care team at [phone] or pager [phone] with skin and wound care concerns or [...] Bennett,*, admitted on 06/16/2013 in transfer from [facility] for abdominal pain and fever. He underwent 06/16/13 LAPAROSCOPIC APPENDECTOMY. He had some post op issues with hypotension. PICC was placed in [facility] on 06/16/13; he is on Vanco. He has had issues with fevers and tremors; he was seen by Neuro and he has baseline tremors. He was extubated on 06/20/13, has had and altered mental status, and was transferred to [facility] on06/22/13. No past medical history on file. [...] performed by HENNA GAMINO JR at [facility] MAIN OR ??? Lap, appendectomy 06/16/2013 LAPAROSCOPIC APPENDECTOMY performed by Tammy Mccann MD at 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 2. Pt will transfer to commode with one person assist and appropriate assistive [...] minutes Total timed interventions: 0 minutes Pager: [phone] KEDAR AKINS OT 06/25/2013 Occupational Therapy Rehabilitation [...] performed by HENNA GAMINO JR at [facility] MAIN OR ??? Lap, appendectomy 06/16/2013 LAPAROSCOPIC APPENDECTOMY performed by Tammy Mccann MD at [facility] MAIN OR Social History: Per CARE MANAGEMENT [...] had inpatient rehab following last BKA at [facility] swing bed. Mother states he didn't like it, but will appreciate that he must be independent enough to safely returnhome, as he is a large man, and mother is a small woman, with limited ability to physically help him..... - He reports he can walk 3 minutes with consuelo. Prosthesis and then tires. Uses a cane in the community, goes to community center with the cane as well. Has a trapeze at home. Precautions/Special Considerations: consuelo. BKA with prosthesis, NG tube, IV, telemetry, 330# without prosthesis, chang catheter, PICC line Subjective: Pt reports he feels pretty good today. Objective: Pt seen for evaluation today. Pain: 2/10 at rest Vital Signs: Sp02: 95 HR: 67 BP: 145/63 - per BARREL DRILLER at 10:34 am Mental Status: affect appropriate [...] 0 minutes TAMMY WYMAN, PT 06/23/2013 Pager: [phone] Physical Therapy Rehabilitation Department Consult Note - Millie Maza RN - 06/22/2013 12:21 PM EST Images from the original note were not included. Certified Wound Care Nurse Note Situation: Asked to see Leroy Dailey by Kory Arriaza RN for Varun score 12, new left [...] Oral Nutrition: oral hygiene provided Current bed:Total care connect sport Assessment: Suspected deep tissue injury on the medial aspect of the left nares with partial thickness skin loss at the tip of the left inner nares related to NG tube. Wound Care Recommendations: Left nares Ensure that the NG tube does not come into contact with this area 1. Cleanse area with normal saline of dermal wound cleanser 2. Apply Aloe [place] protective ointment to area BID and prn [...] gently after each incontinence episode with Aloe [place] Personal Cleanser. Apply Protective Ointment to perineal area bid and prn. Assess skin for fungal infections, notify provider. Activity: Implement reminder system for repositioning every two hours while in bed Nutrition: Evaluate nutrition/hydration status. Follow manifold builder recommendations Mobility: Turn and reposition every 2 hours and document in ED-H. Place a pillow above and below sacral area to off load pressure to the sacrum Offload pressure from heels by placing pillows lengthwise beneath legs while in bed. VersaCare AIR bed Use a single quilted chux [...] float over the surface of the bed. Total Care Connect Bed Use a single flat sheet and [...] or equal to 30 degrees. Use Aloe [place] Skin Conditioner #2 after baths for extra dry skin. Discussed plan with: MD: Lane Nowak RN: Taina Patel Please contact MILLIE MAZA RN on pager [phone] or the wound care team at [phone] or pager [phone] with skin and wound care concerns or [...] to monitor Consult Note - Shabana Colindres, PharmD - 06/21/2013 1:16 PM EST Clinical Pharmacist Note-Vanc Leroy Dailey [id number] 1955 Leroy Dailey is a 58 y.o. [...] have. Alternately, during off-hours you may call [phone] to contact a pharmacist. Patient has been transferred off ICU service and pharmacy-managed vancomycin service will sign-off. We will continue to monitor vancomycin therapy for this patient and any changes to the vancomycin regimen will need to be made by the primary team. SHABANA COLINDRES, MIKYD PH [phone] Plan of Care - John North RN [...] to monitor Plan of Care - Kory Arriaza RN - 06/20/2013 5:59 PM EST Problem: [...] PM EST Clinical Pharmacist Note-Vanc Leroy Dailey [id number] 1955 Leroy Dailey is a 58 y.o. [...] have. Alternately, during off-hours you may call [phone] to contact a pharmacist. ALDA KIRBY PHARMD Pager [phone] Plan of Care - Marissa Nuñez RN [...] DM, diabetic nephropathy s/p renal transplantpresenting to [facility] with fevers, chills and RLQ tenderness. 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 [...] have. Alternately, during off-hours you may call [phone] to contact a pharmacist. ALDA KIRBY, CARLIN Pager [phone] Miscellaneous - Provider, Kody - 06/18/2013 2:57 PM EST Consult Note - Alejo Garnett MD - 06/18/2013 9:16 AM EST TRANSPLANT NEPHROLOGY CONSULT PATIENT: Leroy Dailey : 1955 REASON FOR CONSULTATION: immunosuppressant management referred by Dr. 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 After being admitted to the [facility] he underwent lap appendectomy and is in [...] performed by HENNA GAMINO JR at [facility] MAIN OR ??? Lap, appendectomy 06/16/2013 LAPAROSCOPIC APPENDECTOMY performed by Tammy Mccann MD at [facility] MAIN OR FH: No family history on [...] on vanc and meopenem Char Mclaughlin Pager [phone] I examined the patient, reviewed all of [...] tenderness and firmness. He went initially to [facility] where he was found to be febrile to 40.2. Blood cultures were drawn. A CXR was obtained and showed no infiltrate. CT scan of abd/pelvis showed no infectious process. He was given a dose of CTX, Flagyl, and Vanco and transferred to [facility] where he was noted to have progressive [...] intrapelvic process. No diverticulitis or appendicitis. Atrophic [place] kidneys with unremarkable appearing transplanted kidney seen [...] regarding treatment of infection. Nicky Small MD Occasional Babysitter Page [phone] Consult Note - Katherine Landeros Jr., [facility] - 06/17/2013 7:34 AM EST Clinical Pharmacist Note-Vanc Leroy Dailey [id number] 1955 Leroy Dailey is a 58 y.o. [...] have. Alternately, during off-hours you may call [phone] to contact a pharmacist. KATHERINE LANDEROS JR [facility], [facility] P. [phone] Plan of Care - Melly Yusuf RN [...] TAMMY MCCANN MD 06/16/2013 Op Note - aTmmy Mccann MD - 06/16/2013 6:24 PM EST [facility] Operative Note Patient Name: Leroy Dailey : [id number] MR#: [id number] Case Date: 06/16/2013 Surgeon: Surgeon(s) and Role: [...] elevated white count. He was transferred to [facility] for further evaluation. On presentation, he complained [...] complications. Consult Note - Katherine Landeros Jr., [facility] - 06/16/2013 7:54 AM EST Clinical Pharmacist Note-Vanc Leroy Dailey [id number] 1955 Leroy Dailey is a 58 y.o. [...] have. Alternately, during off-hours you may call [phone] to contact a pharmacist. KATHERINE LANDEROS JR [facility], [facility] P. [phone] Brief Op Note - Aria Gray - 06/16/2013 6:10 AM EST Brief Operative Note Patient Name: Leroy Dailey : [id number] MR#: [id number] Case Date: 06/16/2013 Surgeon: Surgeon(s) and Role: [...] PA [facility] [address] [place], [place] 0375 (Wo rk) 06/02/2022 Infusion Hematology and Oncology 06/16/2022 Infusion Hematology and Oncology 06/21/2022 Office Visit Neurology Tyler Rojas MD [facility] [place], [place] [phone] (Wo rk) 06/30/2022 Infusion Hematology and Oncology 07/14/2022 Infusion Hematology and Oncology 07/28/2022 Infusion Hematology and Oncology 08/11/2022 Infusion Hematology and Oncology 11/04/2022 Office Visit Rheumatology Dante Freedman PA [facility] ER RHEUMATOLOGY [place], [place] 0[address] (Wo rk) documented as of this encounter Procedures Procedure Name Priority Date/Time Associated Diagnosis Comme nts SCHOOL OPERATIONS MANAGER SCAN 06/28/2013 1:29 Resu lts for this PM EST procedure are i n the results section. SCHOOL OPERATIONS MANAGER SCAN 06/28/2013 1:29 Resu lts for this [...] section. TYPE AND SCREEN Routine 06/22/2013 4:00 ([facility]/CARLA) AM EST BASIC METABOLIC PANEL Routine 06/22/2013 [...] section. TYPE AND SCREEN Routine 06/16/2013 1:45 ([facility]LA) AM EST PHOSPHORUS Routine 06/16/2013 1:45 Results [...] documented in this encounter Results SCAN DOC: SCHOOL OPERATIONS MANAGER (06/28/2013 1:29 PM EST) Narrative 06/28/2013 1:34 PM EST Procedure Note Provider, Scanning - 06/28/2013 1:29 PM EST Scanning Provider MEDIA MGR SCAN EXT ORDR/RSLT SCAN DOC: SCHOOL OPERATIONS MANAGER (06/28/2013 1:29 PM EST) Narrative 06/28/2013 1:34 PM EST Procedure Note Provider, Scanning - 06/28/2013 1:29 PM EST Scanning Provider MEDIA MGR SCAN EXT ORDR/RSLT POCT Glucose (06/27/2013 11:41 AM EST) P athologist Signature POC Glucose 166 60 - 199 CERNER mg/dL [facility] Comment: Supplemental ranges: <110 mg/dL before meals <200 mg/dL all other times of the day Specimen Anatomical Collection Method Collection Time Receive d Time (Source) Location / / Volume Laterality Blood specimen 06/27/2013 11:41 3 (specimen) AM EST 11:41 AM EST Tammy Mccann MD POINT OF CARE TEST ORDERABLE S Performing Organization Address City/State/ZIP Code Phon e Number [address] CERNER MILLENNIUM POCT Glucose (06/27/2013 7:57 AM EST) athologist Signature POC Glucose 111 60 [...] Organization Address City/State/[place] [address] CERNER MILLENNIUM Differential, Automated [...] 013 7:22 (specimen) EST AM EST Ev Bucnker MD HEMATOLOGY ORDERABLES Performing Organization Address City/State/ZIP Code Phon e Number [place] [phone] CERNER MILLENNIUM (ABNORMAL) CBC [...] Address City/State/ZIP Code Phon e Number [address] CERNER MILLENNIUM POCT Glucose (06/27/2013 4:00 AM EST) P athologist Signature POC Glucose 143 60 - [...] Address City/State/ZIP Code Phon e Number [address] CERNER MILLENNIUM POCT Glucose (06/27/2013 12:19 AM EST) athologist Signature POC Glucose 178 60 - 199 CERNER mg/dL MILLENNIUM Comment: [...] Organization Address City/State/[place] [address] CERNER MILLENNIUM POCT Glucose (06/26/2013 8:15 PM EST) P athologist Signature POC Glucose 182 [...] Organization Address City/State/[place] [address] CERNER MILLENNIUM POCT Glucose (06/26/2013 4:11 PM EST) P athologist Signature POC Glucose 176 60 - [...] CARE TEST ORDERABLE S Performing Organization Address City/[facility]/ZIP Code Phon e Number [address] CERNER MILLENNIUM POCT Glucose (06/26/2013 12:01 PM EST) P athologist Signature POC Glucose 170 60 - [...] Organization Address City/State/[place] [address] CERNER MILLENNIUM POCT Glucose (06/26/2013 9:05 AM EST) P athologist Signature POC Glucose 172 60 - [...] Organization Address City/State/[place] [address] CERNER MILLENNIUM Differential, Automated [...] Buckner MD HEMATOLOGY ORDERABLES Performing Organization Address City/[facility]/ZIP Code Phon e Number [place] [phone] CERNER MILLENNIUM (ABNORMAL) CMP w/fasting Glucose (06/26/2013 5:45 AM EST) athologist Signature Glucose 95 65 - 99 [...] of Diabetes Mellitus, Position Statement from the [place] [employer]. ??Diabete s Care, Volume 33, Supplement 1, Jul 2009 BUN 24 (H) 10 - 20 mg/dL CERNER MILLENNIU M Creatinine 1.16 0.80 - 1.50 mg/dL CERNER MILL ENNIUM Comment: Please note that the pediatric reference intervals supplied above were not validated at [facility]. Results from pediatri c patients should be [...] Organization Address City/State/ZIP Code Phon e Number [place] [phone] CERNER MILLENNIUM (ABNORMAL) CBC [...] Buckner MD HEMATOLOGY ORDERABLES Performing Organization Address City/[facility] [place] [address] [facility] MILLENNIUM Phosphorus (06/26/2013 5:45 AM EST) P athologist Signature Phosphorus 3.9 2.5 - 4.5 CERNER mg/dL [facility] Specimen Anatomical Collection Method Collection Time Receive d Time (Source) Location / / Volume Laterality Blood specimen 06/26/2013 5:45 AM 013 5:54 (specimen) EST AM EST Resulting Agency Comment Spec In Lab Ev Buckner MD CHEMISTRY ORDERABLES Performing Organization Address City/[facility] Code Phon e Number [address] [facility] MILLENNIUM (ABNORMAL) Magnesium (06/26/2013 5:45 AM EST) P athologist Signature Magnesium 0.67 (L) 0.69 - 1.07 CERNER mmol/L [facility] Specimen Anatomical Collection Method Collection Time Receive d Time (Source) Location / / Volume Laterality Blood specimen 06/26/2013 5:45 AM 013 5:54 (specimen) EST AM EST Resulting Agency Comment Spec In Lab Ev Buckner MD CHEMISTRY ORDERABLES Performing Organization Address City/[facility] [place] [address] [facility] MILLENNIUM POCT Glucose (06/26/2013 3:54 AM EST) athologist Signature POC Glucose 106 60 - 199 CERNER mg/dL [facility] Comment: Supplemental ranges: <110 mg/dL before meals <200 mg/dL all other times of the day Specimen Anatomical Collection Method Collection Time Receive d Time (Source) Location / / Volume Laterality Blood specimen 06/26/2013 3:54 AM 013 3:54 (specimen) EST AM EST Tammy Mccann MD POINT OF CARE TEST ORDERABLE S Performing Organization Address City/State/ZIP Code Phon e Number [address] CERNER MILLENNIUM (ABNORMAL) POCT Glucose (06/26/2013 12:14 AM EST) athologist Signature POC Glucose 214 (H) 60 - 199 CERNER mg/dL [facility] Comment: Supplemental ranges: <110 mg/dL before meals <200 mg/dL all other times of the day Specimen Anatomical Collection Method Collection Time Receive d Time (Source) Location / / Volume Laterality Blood specimen 06/26/2013 12:14 3 (specimen) AM EST 12:14 AM EST Tammy Mccann MD POINT OF CARE TEST ORDERABLE S Performing Organization Address City/[facility]/ZIP Code Phon e Number [address] CERNER MILLENNIUM (ABNORMAL) POCT Glucose (06/25/2013 8:32 PM EST) athologist Signature POC Glucose 222 (H) 60 - 199 CERNER mg/dL [facility] Comment: Supplemental ranges: <110 mg/dL before meals <200 mg/dL all other times of the day Specimen Anatomical Collection Method Collection Time Receive d Time (Source) Location / / Volume Laterality Blood specimen 06/25/2013 8:32 PM 013 8:32 (specimen) EST PM EST Tammy Mccann MD POINT OF CARE TEST ORDERABLE S Performing Organization Address City/State/[place] [address] CERNER MILLENNIUM POCT Glucose (06/25/2013 5:10 PM EST) athologist Signature POC Glucose 118 60 - 199 CERNER mg/dL [facility] Comment: Supplemental ranges: <110 mg/dL before meals <200 mg/dL all other times of the day Specimen Anatomical Collection Method Collection Time Receive d Time (Source) Location / / Volume Laterality Blood specimen 06/25/2013 5:10 PM 013 5:10 (specimen) EST PM EST Tammy Mccann MD POINT OF CARE TEST ORDERABLE S Performing Organization Address City/[facility]/ZIP Code Phon e Number [address] [facility] MILLENNIUM POCT Glucose (06/25/2013 3:28 PM EST) athologist Signature POC Glucose 111 60 - 199 CERNER mg/dL [facility] Comment: Supplemental ranges: <110 mg/dL before meals <200 mg/dL all other times of the day Specimen Anatomical Collection Method Collection Time Receive d Time (Source) Location / / Volume Laterality Blood specimen 06/25/2013 3:28 PM 013 3:28 (specimen) EST PM EST Tammy Mccann MD POINT OF CARE TEST ORDERABLE S Performing Organization Address City/[facility]/ZIP [facility] Phon e Number [address] [facility] PICC Line: Contact Vascular Access Page [phone] (06/25/2013 12:59 PM EST) Narrative Elizabeth Arguelles, WILD OYSTER HARVESTER - 06/25/2013 12: 59 PM EST Elizabeth [...] the planned procedu re. Hand Hygiene: The quality assurance qa lab technician did perform hand hygiene pr ior to line insertion. Catheter type: PICC Lot number: [id number] Procedure Technique: Skin was prepped with chlorhexidine. [...] Arguelles RN 06/18/2013 Procedure Note Elizabeth Arguelles, WILD OYSTER HARVESTER - 06/18/2013 9:5 1 AM EST PICC/Midline [...] to the planned procedure. Hand Hygiene: The quality assurance qa lab technician did perform hand hygiene pr ior to line insertion. Catheter type: PICC Lot number: [id number] Procedure Technique: Skin was prepped with chlorhexidine. [...] Glucose 88 60 - 199 CERNER mg/dL [facility] Comment: Supplemental ranges: <110 mg/dL before meals <200 mg/dL all other times of the day Specimen Anatomical Collection Method Collection Time Receive d Time (Source) Location / / Volume Laterality Blood specimen 06/25/2013 11:53 3 (specimen) AM EST 11:53 AM EST Tammy Mccann MD POINT OF CARE TEST ORDERABLE S Performing Organization Address City/State/[place] [address] CERNER MILLENNIUM POCT Glucose (06/25/2013 8:08 AM EST) athologist Signature POC Glucose 120 60 - 199 CERNER mg/dL MILLENNIUM Comment: [...] Organization Address City/State/[place] [address] CERNER MILLENNIUM Differential, Automated (06/25/2013 5:55 AM EST) P athologist Signature Neutrophils % 59.8 34.0 - [...] Buckner MD HEMATOLOGY ORDERABLES Performing Organization Address City/[facility]/[place] [address] CERNER MILLENNIUM (ABNORMAL) CBC (with Diff) (06/25/2013 5:55 AM EST) athologist Signature WBC 6.2 4.0 - 10.0 [...] Buckner MD HEMATOLOGY ORDERABLES Performing Organization Address City/[facility]/[place] [address] CERNER MILLENNIUM (ABNORMAL) Prealbumin (06/25/2013 5:55 AM EST) P athologist Signature Prealbumin 11 (L) 20 - 40 CERNER mg/dL [facility] Comment: Prealbumin levels are generally lower in the pediatric population; adult concentrations are usually attained near puberty. Specimen Anatomical Collection Method Collection Time Receive d Time (Source) Location / / Volume Laterality Blood specimen 06/25/2013 5:55 AM 013 6:59 (specimen) EST AM EST Resulting Agency Comment Spec In Lab Ev Buckner MD CHEMISTRY ORDERABLES Performing Organization Address City/[facility]/ZIP Code Phon e Number [address] CERNER MILLENNIUM Tacrolimus level (06/25/2013 5:55 AM EST) athologist Signature Tacrolimus Lvl 3.9 ng/mL CERNER MILLENNIUM Comment: Trough therapeutic: 5-15 ng/mL Specimen Anatomical Collection Method Collection Time Receive d Time (Source) Location / / Volume Laterality Blood specimen 06/25/2013 5:55 AM 013 8:05 (specimen) EST AM EST Resulting Agency Comment Spec In Lab Ev Buckner MD CHEMISTRY ORDERABLES Performing Organization Address City/[facility]/ZIP Code Phon e Number [address] CERNER MILLENNIUM POCT Glucose (06/25/2013 4:17 AM EST) athologist Signature POC Glucose 97 60 - 199 CERNER mg/dL [facility]ILL[facility] Comment: [...] Address City/State/ZIP Code Phon e Number [address] CERNER MILLENNIUM POCT Glucose [...] CARE TEST ORDERABLE S Performing Organization Address City/[facility]/ZIP Code Phon e Number [address] CERNER MILLENNIUM POCT Glucose (06/24/2013 8:16 PM EST) P athologist Signature POC Glucose 173 [...] CARE TEST ORDERABLE S Performing Organization Address City/[facility]/[place] [address] CERNER MILLENNIUM POCT Glucose (06/24/2013 5:53 PM EST) P athologist Signature POC Glucose 195 60 - [...] CARE TEST ORDERABLE S Performing Organization Address City/[facility]/ZIP Code Phon e Number [address] CERNER MILLENNIUM (ABNORMAL) POCT Glucose (06/24/2013 3:52 PM EST) P athologist Signature POC Glucose 263 (H) 60 [...] CARE TEST ORDERABLE S Performing Organization Address [facility]/ZIP Code Phon e Number [address] CERNER MILLENNIUM (ABNORMAL) POCT [...] CARE TEST ORDERABLE S Performing Organization Address [facility]/ZIP Code Phon e Number [address] CERNER MILLENNIUM POCT Glucose [...] CARE TEST ORDERABLE S Performing Organization Address City/[facility]/ZIP Code Phon e Number [address] CERNER MILLENNIUM (ABNORMAL) CMP [...] of Diabetes Mellitus, Position Statement from the [employer]. ??Diabete s Care, Volume 33, Supplement 1, Jul 2009 BUN 21 (H) 10 - 20 mg/dL CERNER MILLENNIU M Creatinine 1.12 0.80 - 1.50 mg/dL CERNER MILL ENNIUM Comment: Please note that the pediatric reference intervals supplied above were not validated at [facility]. Results from pediatri c patients should be [...] CERNER MILL ENNIUM Estimated GFR >60 >=60 HOLLI Ramirez Comment: This estimated GFR [...] Buckner MD CHEMISTRY ORDERABLES Performing Organization Address City/[facility]/ZIP Code Phon e Number [address] CERNER MILLENNIUM POCT Glucose (06/24/2013 7:46 AM EST) athologist Signature POC Glucose 98 60 - 199 CERNER mg/dL MILLENNIUM Comment: Supplemental ranges: <110 mg/dL before meals <200 mg/dL all other times of the day Specimen Anatomical Collection Method Collection Time Receive d Time (Source) Location / / Volume Laterality Blood specimen 06/24/2013 7:46 AM 013 7:46 (specimen) EST AM EST Tammy Mccann MD POINT OF CARE TEST ORDERABLE S Performing Organization Address City/[facility]/ZIP Code Phon e Number [address] CERNER MILLENNIUM POCT Glucose [...] Address City/State/ZIP Code Phon e Number [address] CERNER MILLENNIUM POCT Glucose [...] Organization Address City/State/[place] [address] CERNER MILLENNIUM Differential, Automated (06/24/2013 [...] Organization Address City/State/ZIP Code Phon e Number [place] [phone] CERNER MILLENNIUM (ABNORMAL) CBC [...] Organization Address City/State/[place] [address] CERNER MILLENNIUM POCT Glucose (06/24/2013 12:46 AM EST) P athologist Signature POC Glucose [...] CARE TEST ORDERABLE S Performing Organization Address City/[facility]/[place] [address] CERNER MILLENNIUM (ABNORMAL) POCT Glucose (06/23/2013 10:23 PM EST) P athologist Signature POC Glucose 249 (H) 60 - 199 CERNER mg/dL MILLENNIUM Comment: Supplemental ranges: <110 mg/dL before meals <200 mg/dL all other times of the day Specimen Anatomical Collection Method Collection Time Receive d Time (Source) Location / / Volume Laterality Blood specimen 06/23/2013 10:23 3 (specimen) PM EST 10:23 PM EST Tammy Mccann MD POINT OF CARE TEST ORDERABLE S Performing Organization Address City/[facility]/[place] [address] CERNER MILLENNIUM (ABNORMAL) POCT Glucose (06/23/2013 8:08 PM EST) P athologist Signature POC Glucose 274 (H) 60 [...] CARE TEST ORDERABLE S Performing Organization Address City/[facility]/ZIP Code Phon e Number [address] CERNER MILLENNIUM (ABNORMAL) POCT [...] CARE TEST ORDERABLE S Performing Organization Address City/[facility]/ZIP Code Phon e Number [address] CERNER MILLENNIUM (ABNORMAL) POCT [...] CARE TEST ORDERABLE S Performing Organization Address City/[facility]/ZIP Code Phon e Number [address] CERNER MILLENNIUM (ABNORMAL) POCT [...] CARE TEST ORDERABLE S Performing Organization Address City/[facility]/ZIP Code Phon e Number [address] CERNER MILLENNIUM (ABNORMAL) POCT [...] CARE TEST ORDERABLE S Performing Organization Address City/[facility]/[place] [address] CERNER MILLENNIUM (ABNORMAL) POCT Glucose (06/23/2013 8:12 AM EST) P athologist Signature POC Glucose 257 (H) 60 - 199 CERNER mg/dL MILLENNIUM Comment: Supplemental ranges: <110 mg/dL before meals <200 mg/dL all other times of the day Specimen Anatomical Collection Method Collection Time Receive d Time (Source) Location / / Volume Laterality Blood specimen 06/23/2013 8:12 AM 013 8:12 (specimen) EST AM EST Tammy Mccann MD POINT OF CARE TEST ORDERABLE S Performing Organization Address City/[facility]/ZIP Code Phon e Number [address] CERNER MILLENNIUM (ABNORMAL) POCT [...] Address City/State/ZIP Code Phon e Number [place] [id number] CERNER MILLENNIUM Differential, Automated [...] Organization Address City/State/[place] [address] [facility] MILLENNIUM (ABNORMAL) CBC (with Diff) (06/23/2013 6:08 [...] Address City/State/ZIP Code Phon e Number [address] [facility] ([facility] CMP w/fasting Glucose (06/23/2013 6:08 AM [...] of Diabetes Mellitus, Position Statement from the [employer]. ??Diabete s Care, Volume 33, Supplement 1, Jul 2009 BUN 24 (H) 10 - 20 mg/dL CERNER MILLENNIU M Creatinine 1.15 0.80 - 1.50 mg/dL CERNER MILL ENNIUM Comment: Please note that the pediatric reference intervals supplied above were not validated at [facility]. Results from pediatri c patients should be [...] Alk Phos 94 40 - 120 unit/L CERNER MILLENN IUM Total Bilirubin 0.4 0.2 - 1.3 mg/dL CERNER M ILLENNIUM Bili, Direct 0.2 0.0 - 0.3 mg/dL CERNER MILL ENNIUM Estimated GFR >60 >=60 CERNER DOUGLASSHELDONERICKSON Ramirez Comment: This estimated GFR (eGFR) value [...] Organization Address City/State/[place] [address] CERNER MILLENNIUM (ABNORMAL) POCT Glucose (06/23/2013 3:51 AM EST) P athologist Signature POC Glucose 268 (H) 60 - 199 CERNER mg/dL MILLENNIUM [...] Organization Address City/State/[place] [address] CERNER MILLENNIUM (ABNORMAL) POCT Glucose (06/23/2013 2:11 AM EST) P athologist Signature POC Glucose 291 (H) 60 [...] Address City/State/ZIP Code Phon e Number [address] CERNER MILLENNIUM (ABNORMAL) POCT Glucose (06/23/2013 12:07 AM EST) P athologist Signature POC Glucose 314 (H) 60 [...] Address City/State/ZIP Code Phon e Number [address] CERNER MILLENNIUM (ABNORMAL) POCT Glucose (06/22/2013 10:08 PM EST) P athologist Signature POC Glucose 325 (H) 60 [...] Address City/State/ZIP Code Phon e Number [address] CERNER MILLENNIUM (ABNORMAL) POCT Glucose (06/22/2013 7:56 PM EST) P athologist Signature POC Glucose 264 (H) 60 [...] CARE TEST ORDERABLE S Performing Organization Address City/[facility]/ZIP Code Phon e Number [address] CERNER MILLENNIUM (ABNORMAL) POCT Glucose (06/22/2013 4:38 PM EST) P athologist Signature POC Glucose 212 (H) 60 [...] CARE TEST ORDERABLE S Performing Organization Address City/[facility]/[place] [address] CERNER MILLENNIUM POCT Glucose [...] CARE TEST ORDERABLE S Performing Organization Address City/[facility]/ZIP Code Phon e Number [address] CERNER MILLENNIUM POCT Glucose (06/22/2013 2:29 PM EST) P athologist Signature POC Glucose 178 60 - 199 CERNER mg/dL MILLENNIUM Comment: Supplemental ranges: <110 mg/dL before meals <200 mg/dL all other times of the day Specimen Anatomical Collection Method Collection Time Receive d Time (Source) Location / / Volume Laterality Blood specimen 06/22/2013 2:29 PM 013 2:29 (specimen) EST PM EST Tammy Mccann MD POINT OF CARE TEST ORDERABLE S Performing Organization Address City/[facility]/ZIP Code Phon e Number [address] CERNER MILLENNIUM POCT Glucose (06/22/2013 1:20 PM EST) P athologist Signature POC Glucose 187 60 - [...] CARE TEST ORDERABLE S Performing Organization Address City/[facility]/[place] [address] CERNER MILLENNIUM POCT Glucose (06/22/2013 12:24 PM EST) P athologist Signature POC Glucose 180 60 - [...] Organization Address City/State/[place] [address] CERNER MILLENNIUM POCT Glucose (06/22/2013 11:40 AM EST) P athologist Signature POC Glucose 171 60 - [...] CARE TEST ORDERABLE S Performing Organization Address City/[facility]/[place] [address] CERNER MILLENNIUM POCT Glucose (06/22/2013 10:25 AM EST) [...] CARE TEST ORDERABLE S Performing Organization Address City/[facility]/[place] [address] CERNER MILLENNIUM Vancomycin, trough (06/22/2013 10:20 AM EST) athologist Signature Vanc Trough 21.7 mg/L CERNER MILLENNIUM Comment: Therapeutic range for complicated infect ions [...] Buckner MD CHEMISTRY ORDERABLES Performing Organization Address City/[facility]/[place] [address] CERNER MILLENNIUM POCT Glucose [...] Address City/State/ZIP Code Phon e Number [address] CERNER MILLENNIUM POCT Glucose [...] CARE TEST ORDERABLE S Performing Organization Address City/[facility]/ZIP Code Phon e Number [address] CERNER MILLENNIUM POCT Glucose [...] CARE TEST ORDERABLE S Performing Organization Address City/[facility]/ZIP Code Phon e Number [address] CERNER MILLENNIUM POCT Glucose (06/22/2013 5:09 AM EST) [...] Organization Address City/State/[place] [address] [facility] POCT Glucose (06/22/2013 4:32 AM EST) P athologist Signature POC Glucose 186 60 - 199 CERNER mg/dL [facility] Comment: Supplemental ranges: <110 mg/dL before meals <200 mg/dL all other times of the day Specimen Anatomical Collection Method Collection Time Receive d Time (Source) Location / / Volume Laterality Blood specimen 06/22/2013 4:32 AM 013 4:32 (specimen) EST AM EST Tammy Mccann MD POINT OF CARE TEST ORDERABLE S Performing Organization Address City/[facility]/ZIP Code Phon e Number [address] [facility]ITAL[facility]UM Antibody screen (06/22/2013 4:00 AM EST) Analysis Performed At Patho logist Time Signature Ab Screen Negative [facility] Expires at [phone] [facility] [id number] on: MILLENNIUM Specimen Anatomical Collection Method Collection Time Receive d Time (Source) Location / / Volume Laterality Blood specimen 06/22/2013 4:00 AM 013 4:26 (specimen) EST AM EST Resulting Agency Comment Spec In Lab Ev Buckner MD BLOOD BANK ORDERABLES Performing Organization Address City/State/ZIP Code Phon e Number [address] [facility] MILLENNIUM ABO/Rh Typing (06/22/2013 4:00 AM EST) P athologist Signature ABORh Type O Pos [facility] Specimen Anatomical Collection Method Collection Time Receive d Time (Source) Location / / Volume Laterality Blood specimen 06/22/2013 4:00 AM 013 4:26 (specimen) EST AM EST Resulting Agency Comment Spec In Lab Ev Buckner MD BLOOD BANK ORDERABLES Performing Organization Address City/State/[place] [address] CERNER MILLENNIUM Differential, Automated (06/22/2013 4:00 AM EST) P athologist Signature Neutrophils % 67.7 34.0 - [...] Organization Address City/State/[place] [address] CERNER MILLENNIUM (ABNORMAL) Basic [...] intervals supplied above were not validated at [facility] Results from pediatri c patients should be [...] MD CHEMISTRY ORDERABLES Performing Organization Address City/State/ZIP [facility] [place] [address] CERNER MILLENNIUM (ABNORMAL) CBC [...] Buckner MD HEMATOLOGY ORDERABLES Performing Organization Address City/[facility]/ZIP [place] [address] CERNER MILLENNIUM POCT Glucose [...] Organization Address City/State/[place] [address] CERNER MILLENNIUM POCT Glucose [...] Address City/State/ZIP Code Phon e Number [address] CERNER MILLENNIUM POCT Glucose [...] Address City/State/ZIP Code Phon e Number [address] CERNER MILLENNIUM POCT Glucose (06/21/2013 11:50 PM EST) athologist Signature POC Glucose 189 60 - 199 CERNER mg/dL MILLENNIUM Comment: Supplemental ranges: <110 mg/dL before meals <200 mg/dL all other times of the day Specimen Anatomical Collection Method Collection Time Receive d Time (Source) Location / / Volume Laterality Blood specimen 06/21/2013 11:50 3 (specimen) PM EST 11:50 PM EST Tammy Mccann MD POINT OF CARE TEST ORDERABLE S Performing Organization Address City/[facility]/ZIP Code Phon e Number [address] CERNER MILLENNIUM (ABNORMAL) POCT Glucose (06/21/2013 10:05 PM EST) P athologist Signature POC Glucose 219 (H) 60 - 199 CERNER mg/dL MILLENNIUM [...] Address City/State/ZIP Code Phon e Number [address] CERNER MILLENNIUM (ABNORMAL) POCT Glucose (06/21/2013 9:19 PM EST) P athologist Signature POC Glucose 267 (H) 60 - 199 CERNER mg/dL MILLENNIUM Comment: Supplemental ranges: <110 mg/dL before meals <200 mg/dL all other times of the day Specimen Anatomical Collection Method Collection Time Receive d Time (Source) Location / / Volume Laterality Blood specimen 06/21/2013 9:19 PM 013 9:19 (specimen) EST PM EST Tammy Mccann MD POINT OF CARE TEST ORDERABLE S Performing Organization Address City/[facility]/ZIP Code Phon e Number [address] CERNER MILLENNIUM (ABNORMAL) POCT Glucose (06/21/2013 8:01 PM EST) P athologist Signature POC Glucose 243 (H) 60 [...] Address City/State/ZIP Code Phon e Number [address] CERNER MILLENNIUM (ABNORMAL) POCT Glucose (06/21/2013 5:47 PM EST) P athologist Signature POC Glucose 286 (H) 60 - 199 CERNER mg/dL MILLENNIUM Comment: Supplemental ranges: <110 mg/dL before meals <200 mg/dL all other times of the day Specimen Anatomical Collection Method Collection Time Receive d Time (Source) Location / / Volume Laterality Blood specimen 06/21/2013 5:47 PM 013 5:47 (specimen) EST PM EST Tammy Mccann MD POINT OF CARE TEST ORDERABLE S Performing Organization Address City/[facility]/ZIP Code Phon e Number [address] CERNER MILLENNIUM (ABNORMAL) POCT [...] Address City/State/ZIP Code Phon e Number [address] CERNER MILLENNIUM (ABNORMAL) POCT Glucose (06/21/2013 2:30 PM EST) P athologist Signature POC Glucose 257 (H) 60 - 199 CERNER mg/dL MILLENNIUM [...] Organization Address City/State/[place] [address] HOLLI [employer] NavigationENNIUM XR chest PA or AP- 1 view [...] Urinalysis with microscopic (06/21/2013 12:01 PM EST) [facility] Method Time Signature Glucose UA 300 [...] UA Clear Clear CERNER MILLENNIU M Spec Gravel Switch UA 1.011 1.002 - 1.030 CERNER MIL [...] Organization Address City/State/[place] [address] CERNER MILLENNIUM Urine culture Indwelling Catheter Urine (06/21/2013 12:00 PM EST) [facility] Method Time Signature Urine Culture CERNER ? Patient Name: LEROY DAILEY ?Ordered By: EV BUCKNER ? MR#: [id number] ?LOC: ??ICUS ? /Sex: ??1955 (58 years), [...] Address City/State/ZIP Code Phon e Number [address] [employer] ServicesIUM (ABNORMAL) POCT Glucose (06/21/2013 11:34 AM EST) P athologist Signature POC Glucose 251 (H) 60 - 199 CERNER mg/dL [facility] Comment: Supplemental ranges: <110 mg/dL before meals <200 mg/dL all other times of the day Specimen Anatomical Collection Method Collection Time Receive d Time (Source) Location / / Volume Laterality Blood specimen 06/21/2013 11:34 3 (specimen) AM EST 11:34 AM EST Tammy Mccann MD POINT OF CARE TEST ORDERABLE S Performing Organization Address City/State/ZIP Code Phon e Number [address] [employer] Corporate ServicesIUM XR chest PA or AP- 1 view [...] consolidations described on e CT scan 06/17/2013. ??Mild central pulmonary [...] 239 (H) 60 - 199 CERNER mg/dL MILLENNIUM Comment: Supplemental ranges: <110 mg/dL before meals <200 mg/dL all other times of the day Specimen Anatomical Collection Method Collection Time Receive d Time (Source) Location / / Volume Laterality Blood specimen 06/21/2013 7:55 AM 013 7:55 (specimen) EST AM EST Tammy Mccann MD POINT OF CARE TEST ORDERABLE S Performing Organization Address City/[facility]/ZIP Code [facility] [address] [facility] MILLENNIUM Tacrolimus level (06/21/2013 7:50 AM EST) athologist Signature Tacrolimus Lvl 3.4 ng/mL CERNER MILLENNIUM Comment: Trough therapeutic: 5-15 ng/mL Specimen Anatomical Collection Method Collection Time Receive d Time (Source) Location / / Volume Laterality Blood specimen 06/21/2013 7:50 AM 013 (specimen) EST 10:29 AM EST Resulting Agency Comment Spec In Lab Ev Buckner MD CHEMISTRY ORDERABLES Performing Organization Address City/[facility] [address] CERNER MILLENNIUM (ABNORMAL) POCT [...] Address City/State/ZIP Code Phon e Number [address] CERNER MILLENNIUM (ABNORMAL) POCT [...] Address City/State/ZIP Code Phon e Number [address] CERNER MILLENNIUM (ABNORMAL) Differential, [...] Organization Address City/State/[place] [address] CERNER MILLENNIUM (ABNORMAL) Basic [...] intervals supplied above were not validated at [facility]. Results from pediatri c patients should be [...] NIUM Estimated GFR 53 (L) >=60 CERNER DOUGLASSHELDONERICKSON Ramirez Comment: This estimated GFR (eGFR) value [...] Organization Address City/State/[place] [address] CERNER MILLENNIUM (ABNORMAL) CBC [...] Buckner MD HEMATOLOGY ORDERABLES Performing Organization Address City/[facility]/ZIP Code Phon e Number [address] CERNER MILLENNIUM (ABNORMAL) POCT Glucose (06/21/2013 12:11 AM EST) athologist Signature POC Glucose 225 (H) 60 - 199 CERNER mg/dL MILLENNIUM Comment: Supplemental ranges: <110 mg/dL before meals <200 mg/dL all other times of the day Specimen Anatomical Collection Method Collection Time Receive d Time (Source) Location / / Volume Laterality Blood specimen 06/21/2013 12:11 3 (specimen) AM EST 12:11 AM EST Tammy Mccann MD POINT OF CARE TEST ORDERABLE S Performing Organization Address City/[facility]/ZIP Code Phon e Number [address] CERNER MILLENNIUM POCT Glucose (06/20/2013 7:52 PM EST) athologist Signature POC Glucose 148 60 - 199 CERNER mg/dL [facility] Comment: Supplemental ranges: <110 mg/dL before meals <200 mg/dL all other times of the day Specimen Anatomical Collection Method Collection Time Receive d Time (Source) Location / / Volume Laterality Blood specimen 06/20/2013 7:52 PM 013 7:52 (specimen) EST PM EST Tammy Mccann MD POINT OF CARE TEST ORDERABLE S Performing Organization Address City/[facility]/ZIP Code Phon e Number [address] CERNER MILLENNIUM Potassium (06/20/2013 7:50 PM EST) athologist Signature Potassium 4.3 3.5 - 5.0 CERNER mmol/L [facility] Comment: Please note: ??Patients with WBC [...] Address City/State/ZIP Code Phon e Number [address] CERNER MILLENNIUM (ABNORMAL) POCT Glucose (06/20/2013 6:12 PM EST) P athologist Signature POC Glucose 243 (H) 60 [...] CARE TEST ORDERABLE S Performing Organization Address City/[facility]/ZIP Code Phon e Number [address] CERNER MILLENNIUM (ABNORMAL) POCT Glucose (06/20/2013 4:41 PM EST) P athologist Signature POC Glucose 250 (H) 60 - 199 CERNER mg/dL MILLENNIUM Comment: Supplemental ranges: <110 mg/dL before meals <200 mg/dL all other times of the day Specimen Anatomical Collection Method Collection Time Receive d Time (Source) Location / / Volume Laterality Blood specimen 06/20/2013 4:41 PM 013 4:41 (specimen) EST PM EST Tammy Mccann MD POINT OF CARE TEST ORDERABLE S Performing Organization Address City/[facility]/ZIP Code Phon e Number [address] CERNER MILLENNIUM POCT Glucose (06/20/2013 12:07 PM EST) athologist Signature POC Glucose 144 60 - [...] Address City/State/ZIP Code Phon e Number [address] CERNER MILLENNIUM POCT Glucose (06/20/2013 10:33 AM EST) athologist Signature POC Glucose 163 [...] Address City/State/ZIP Code Phon e Number [address] CERNER MILLENNIUM POCT Glucose (06/20/2013 8:01 AM EST) athologist Signature POC Glucose 149 60 - 199 CERNER mg/dL MILLENNIUM Comment: Supplemental ranges: <110 mg/dL before meals <200 mg/dL all other times of the day Specimen Anatomical Collection Method Collection Time Receive d Time (Source) Location / / Volume Laterality Blood specimen 06/20/2013 8:01 AM 2 013 8:01 (specimen) EST AM EST aTmmy Mccann MD POINT OF CARE TEST ORDERABLE S Performing Organization Address City/State/ZIP Code Phon e Number [address] CERNER MILLENNIUM Potassium (06/20/2013 8:00 AM EST) athologist Signature Potassium 4.7 3.5 - 5.0 CERNER mmol/L [facility] Comment: Please note: ??Patients with WBC [...] Mccann MD CHEMISTRY ORDERABLES Performing Organization Address City/[facility]/ZIP Code Phon e Number [address] CERNER MILLENNIUM Tacrolimus level (06/20/2013 8:00 AM EST) athologist [facility] Tacrolimus Lvl 4.8 ng/mL CERNER MILLENNIUM Comment: Trough therapeutic: 5-15 ng/mL Specimen Anatomical Collection Method Collection Time Receive d Time (Source) Location / / Volume Laterality Blood specimen 06/20/2013 8:00 AM 013 (specimen) EST 12:04 PM EST Resulting Agency Comment Spec In Lab Tammy Mccann MD CHEMISTRY ORDERABLES Performing Organization Address City/[facility]/ZIP Code Phon e Number [address] CERNER MILLENNIUM POCT Glucose (06/20/2013 6:17 AM EST) athologist [facility] POC Glucose 136 60 - 199 CERNER mg/dL [facility] Comment: Supplemental ranges: <110 mg/dL before meals <200 mg/dL all other times of the day Specimen Anatomical Collection Method Collection Time Receive d Time (Source) Location / / Volume Laterality Blood specimen 06/20/2013 6:17 AM 013 6:17 (specimen) EST AM EST Tammy Mccann MD POINT OF CARE TEST ORDERABLE S Performing Organization Address City/State/ZIP Code Phon e Number [address] CERNER MILLENNIUM (ABNORMAL) Differential, Automated (06/20/2013 5:00 AM EST) Patholo gist Method Time Signature Neutrophils % 66.0 34.0 [...] Organization Address City/State/[place] [address] CERNER MILLENNIUM (ABNORMAL) Basic [...] intervals supplied above were not validated at [facility]. Results from pediatri c patients should be [...] Organization Address City/State/[place] [address] CERNER MILLENNIUM (ABNORMAL) CBC [...] Address City/State/ZIP Code Phon e Number [address] CERNER MILLENNIUM (ABNORMAL) BLOOD [...] Comment: Total Hemoglobin (in gm/dL) ?Based on [facility] Hematology ran ges: ?Age ?Referen ce Range [...] Mccann MD CHEMISTRY ORDERABLES Performing Organization Address City/[facility]/[place] [address] CERNER MILLENNIUM POCT Glucose (06/20/2013 4:05 AM EST) athologist Signature POC Glucose 150 60 - 199 CERNER mg/dL [facility] Comment: Supplemental ranges: <110 mg/dL before meals <200 mg/dL all other times of the day Specimen Anatomical Collection Method Collection Time Receive d Time (Source) Location / / Volume Laterality Blood specimen 06/20/2013 4:05 AM 013 4:05 (specimen) EST AM EST Tammy Mccann MD POINT OF CARE TEST ORDERABLE S Performing Organization Address City/[facility]/ZIP Code Phon e Number [address] CERNER MILLENNIUM POCT Glucose (06/20/2013 2:14 AM EST) athologist Signature POC Glucose 151 60 - 199 CERNER mg/dL [facility] Comment: Supplemental ranges: <110 mg/dL before meals <200 mg/dL all other times of the day Specimen Anatomical Collection Method Collection Time Receive d Time (Source) Location / / Volume Laterality Blood specimen 06/20/2013 2:14 AM 013 2:14 (specimen) EST AM EST Tammy Mccann MD POINT OF CARE TEST ORDERABLE S Performing Organization Address City/[facility]/ZIP Code Phon e Number [address] CERNER MILLENNIUM Potassium (06/19/2013 11:56 PM EST) P athologist Signature Potassium 4.4 3.5 - 5.0 [...] Organization Address City/State/[place] [address] CERNER MILLENNIUM POCT Glucose [...] Organization Address City/State/[place] [address] CERNER MILLENNIUM (ABNORMAL) BLOOD [...] Comment: Total Hemoglobin (in gm/dL) ?Based on [facility] [facility]: ?Age ?Referen ce Range [...] Organization Address City/State/[place] [address] CERNER MILLENNIUM Potassium (06/19/2013 9:15 PM EST) athologist Signature Potassium 4.4 3.5 - 5.0 CERNER mmol/L [facility] Comment: Please note: ??Patients with WBC [...] Mccann MD CHEMISTRY ORDERABLES Performing Organization Address City/[facility]/ZIP Code Phon e Number [address] CERNER MILLENNIUM POCT Glucose (06/19/2013 8:09 PM EST) athologist Signature POC Glucose 141 60 - 199 CERNER mg/dL [facility] Comment: Supplemental ranges: <110 mg/dL before meals <200 mg/dL all other times of the day Specimen Anatomical Collection Method Collection Time Receive d Time (Source) Location / / Volume Laterality Blood specimen 06/19/2013 8:09 PM 013 8:09 (specimen) EST PM EST Tammy Mccann MD POINT OF CARE TEST ORDERABLE S Performing Organization Address City/[facility]/ZIP Code Phon e Number [address] CERNER MILLENNIUM POCT Glucose [...] CARE TEST ORDERABLE S Performing Organization Address City/[facility]/[place] [address] CERNER MILLENNIUM Potassium (06/19/2013 4:43 PM EST) athologist Signature Potassium 4.5 3.5 - 5.0 CERNER mmol/L [...] Mccann MD CHEMISTRY ORDERABLES Performing Organization Address City/[facility]/[place] [address] CERNER MILLENNIUM POCT Glucose [...] CARE TEST ORDERABLE S Performing Organization Address City/[facility]/ZIP Code Phon e Number [address] CERNER MILLENNIUM Potassium (06/19/2013 12:21 PM EST) P athologist Signature Potassium 4.7 3.5 - 5.0 CERNER mmol/L [facility] Comment: Please note: ??Patients with WBC [...] Mccann MD CHEMISTRY ORDERABLES Performing Organization Address City/[facility]/ZIP Code Phon e Number [address] CERNER MILLENNIUM POCT Glucose (06/19/2013 12:01 PM EST) athologist Signature POC Glucose 198 60 - 199 CERNER mg/dL [facility] Comment: Supplemental ranges: <110 mg/dL before meals <200 mg/dL all other times of the day Specimen Anatomical Collection Method Collection Time Receive d Time (Source) Location / / Volume Laterality Blood specimen 06/19/2013 12:01 3 (specimen) PM EST 12:01 PM EST Tammy Mccann MD POINT OF CARE TEST ORDERABLE S Performing Organization Address City/State/ZIP Code Phon e Number [address] CERNER MILLENNIUM Blood culture (06/19/2013 11:07 AM EST) Patholo gist Method Time Signature Blood Culture CERNER ? Patient Name: LEROY DAILEY ?Ordered By: TAMMY MCCANN ? MR#: [id number] ?LOC: ??3WST ? /Sex: ??1955 (58 years), [...] Organization Address City/State/[place] [address] CERNER MILLENNIUM POCT Glucose (06/19/2013 10:04 AM EST) P athologist Signature POC Glucose 193 60 - 199 CERNER mg/dL [facility] Comment: Supplemental ranges: <110 mg/dL before meals <200 mg/dL all other times of the day Specimen Anatomical Collection Method Collection Time Receive d Time (Source) Location / / Volume Laterality Blood specimen 06/19/2013 10:04 3 (specimen) AM EST 10:04 AM EST Tammy Mccann MD POINT OF CARE TEST ORDERABLE S Performing Organization Address City/[facility]/[place] [address] CERNER MILLENNIUM Differential, Automated [...] Mccann MD HEMATOLOGY ORDERABLES Performing Organization Address City/[facility]/[place] [address] CERNER MILLENNIUM (ABNORMAL) CBC [...] Organization Address City/State/[place] [address] CERNER MILLENNIUM POCT Glucose [...] Organization Address City/State/[place] [address] CERNER MILLENNIUM (ABNORMAL) BLOOD GAS 2 ARTERIAL (06/19/2013 8:32 AM EST) [facility] gist Method Time Signature pH Art 7.35 (L) CERNER MILLENNIUM pCO2 Art 29 (L) mmHg CERNER MILLENNIUM pO2 Art 119 (H) mmHg CERNER MILLENNIUM HCO3 Art 15.4 (L) mmol/L CERNER MILLENNIUM BE Art -10.0 (L) mmol/L CERNER MILLENNIUM Hgb Blood Gas 10.7 (L) gm/dL CERNER MILLENNIUM Comment: Total Hemoglobin (in gm/dL) ?Based on [facility] ges: ?Age ?Referen ce Range [...] Organization Address City/State/[place] [address] CERNER MILLENNIUM EBV PCR Quant (06/19/2013 8:25 AM EST) [facility] gist Method Time Signature EBV NONE DETECTED. CERNER PCR,Quantitat MILLENNIUM roderick ?Lower limit of detection is 500 copies/mL. Comment: This test was developed and its performa nce determined by the [facility] Dept. of Pathology, Clinical Laboratory. ??It has [...] Address City/State/ZIP Code Phon e Number [address] CERNER MILLENNIUM CMV PCR, Quantitative (06/19/2013 8:25 AM EST) Patholo gist Method Time Signature CMV DNA PCR Undetected Undetected CERNER Quant IU/mL [facility] Comment: Result in log IU/mL is Undetected. The quantification range of this assay i s 137 to 9,100,000 IU/mL (2.14 log to 6.96 log IU/mL) with a limit of detection at 91 IU/mL (1.96 log IU/mL). Testing was performed by the [employer] AmpliPrep/DEO T aqMan CMV Test ([employer] Test Performed by: [place] [address] Merchant Patroller: Purnima Ayoub, Ph. D. Specimen Anatomical Collection Method Collection Time Receive d Time (Source) Location / / Volume Laterality Blood specimen 06/19/2013 8:25 AM 013 2:52 (specimen) EST PM EST Resulting Agency Comment Spec In Lab Tammy Mccann MD IMMUNOLOGY ORDERABLES Performing Organization Address City/[facility]/ZIP Code Phon e Number [address] CERNER [facility]ITAL[facility] Potassium (06/19/2013 8:25 AM EST) P athologist Signature Potassium 5.0 3.5 - 5.0 CERNER mmol/L [facility] Comment: Please note: ??Patients with WBC [...] Address City/State/ZIP Code Phon e Number [address] CERNER MILLENNIUM CT head WO contrast (06/19/2013 7:22 AM [...] 7.28 CERNER (Critical) MILLENNIUM Comment: Noted by instrument adjuster. pCO2 Art 31 (L) mmHg CERNER MILLENNIUM pO2 Art 95 mmHg CERNER MILLENNIUM HCO3 Art 14.0 (L) mmol/L CERNER MILLENNIUM BE Art -12.8 (L) mmol/L CERNER MILLENNIUM Hgb Blood Gas 9.0 (L) gm/dL HOLLI Ramirez Comment: Total Hemoglobin (in gm/dL) ?Based on [facility] ran ges: ?Age ?Referen ce Range [...] Organization Address City/State/ZIP Code Phon e Number [place] [phone] CERNER MILLENNIUM POCT Glucose (06/19/2013 5:55 AM EST) P athologist Signature POC Glucose 174 60 - 199 CERNER mg/dL MILLENNIUM Comment: [...] Organization Address City/State/[place] [address] CERNER MILLENNIUM Lactic acid, plasma (06/19/2013 4:15 AM EST) athologist Signature Lactate 0.6 0.5 - 2.2 CERNER mmol/L MILLENNIUM Specimen Anatomical Collection Method Collection Time Receive d Time (Source) Location / / Volume Laterality Blood specimen 06/19/2013 4:15 AM 013 4:23 (specimen) EST AM EST Resulting Agency Comment Spec In Lab Tammy Mccann MD CHEMISTRY ORDERABLES Performing Organization Address City/[facility]/[place] [address] CERNER MILLENNIUM (ABNORMAL) Basic Metabolic Panel (non-fasting) (06/19/2013 4:15 AM EST) athologist Signature Glucose Lvl 173 60 - 199 CERNER mg/dL MILLENNIUM Comment: Diabetes: >=200 mg/dL plus symp toms BUN 23 (H) 10 - 20 mg/dL CERNER MILLENNIU M Creatinine 1.53 (H) 0.80 - 1.50 mg/dL CERNER MILL ENNIUM Comment: Please note that the pediatric reference intervals supplied above were not validated at [facility]. Results from pediatri c patients should be [...] Address City/State/ZIP Code Phon e Number [address] [facility]ITALIUM POCT Glucose (06/19/2013 4:12 AM EST) athologist Signature POC Glucose 182 60 - 199 CERNER mg/dL [facility] Comment: Supplemental ranges: <110 mg/dL before meals <200 mg/dL all other times of the day Specimen Anatomical Collection Method Collection Time Receive d Time (Source) Location / / Volume Laterality Blood specimen 06/19/2013 4:12 AM 013 4:12 (specimen) EST AM EST Tammy Mccann MD POINT OF CARE TEST ORDERABLE S Performing Organization Address City/[facility]/ZIP [facility] Phon e Number [address] [facility] (ABNORMAL) BLOOD GAS 2 ARTERIAL (06/19/2013 3:45 AM EST) athologist Signature pH Art 7.17 CERNER (Critical) MILLENNIUM Comment: Noted by instrument adjuster. pCO2 Art 46 (H) mmHg CERNER MILLENNIUM pO2 Art 86 mmHg CERNER MILLENNIUM HCO3 Art 16.1 (L) mmol/L CERNER MILLENNIUM BE Art -12.4 (L) mmol/L CERNER MILLENNIUM Hgb Blood Gas 9.8 (L) gm/dL HOLLI BALLARDIJanneth M Comment: Total Hemoglobin (in gm/dL) ?Based on [facility] ran ges: ?Age ?Referen ce Range [...] CERNER MILLENNIUM Na Whole Blood 142 mmol/L [facility] MILLENNI UM K Whole Blood 4.0 mmol/L [facility] MILLENNIU M Comment: Please note: Patients with [...] Mccann MD CHEMISTRY ORDERABLES Performing Organization Address City/[facility]/ZIP Code Phon e Number [address] CERNER MILLENNIUM Potassium (06/19/2013 3:30 [...] Mccann MD CHEMISTRY ORDERABLES Performing Organization Address City/[facility]/ZIP Code Phon e Number [address] CERNER MILLENNIUM Tacrolimus level (06/19/2013 3:30 AM EST) P athologist Signature Tacrolimus Lvl 5.9 ng/mL CERNER MILLENNIUM Comment: Trough therapeutic: 5-15 ng/mL Specimen Anatomical Collection Method Collection Time Receive d Time (Source) Location / / Volume Laterality Blood specimen 06/19/2013 3:30 AM 013 8:17 (specimen) EST AM EST Resulting Agency Comment Spec In Lab Tammy Mccann MD CHEMISTRY ORDERABLES Performing Organization Address City/[facility]/ZIP Code Phon e Number [address] CERNER MILLENNIUM POCT Glucose [...] CARE TEST ORDERABLE S Performing Organization Address City/[facility]/ZIP Code Phon e Number [address] CERNER MILLENNIUM POCT Glucose [...] Address City/State/ZIP Code Phon e Number [address] CERNER MILLENNIUM Potassium (06/18/2013 [...] Mccann MD CHEMISTRY ORDERABLES Performing Organization Address City/[facility]/ZIP Code Phon e Number [address] CERNER MILLENNIUM POCT Glucose [...] CARE TEST ORDERABLE S Performing Organization Address City/[facility]/ZIP Code Phon e Number [address] CERNER MILLENNIUM POCT Glucose [...] CARE TEST ORDERABLE S Performing Organization Address City/[facility]/ZIP Code Phon e Number [address] CERNER MILLENNIUM POCT Glucose [...] CARE TEST ORDERABLE S Performing Organization Address City/[facility]/[place] [address] CERNER MILLENNIUM POCT Glucose [...] CARE TEST ORDERABLE S Performing Organization Address City/[facility]/ZIP Code Phon e Number [address] CERNER MILLENNIUM (ABNORMAL) Basic [...] intervals supplied above were not validated at [facility]. Results from pediatri c patients should be [...] Mccann MD CHEMISTRY ORDERABLES Performing Organization Address City/[facility]/ZIP Code Phon e Number [address] CERNER MILLENNIUM POCT Glucose (06/18/2013 4:14 PM EST) athologist Signature POC Glucose 175 [...] CARE TEST ORDERABLE S Performing Organization Address City/[facility]/ZIP Code Phon e Number [address] CERNER MILLENNIUM Potassium (06/18/2013 [...] Address City/State/ZIP Code Phon e Number [address] CERNER MILLENNIUM POCT Glucose [...] Organization Address City/State/[place] [address] CERNER MILLENNIUM POCT Glucose [...] Organization Address City/State/[place] [address] HOLLI BALLARDCAPE [facility] XR VAS venous access (PICC placement) (06/18/2013 [...] P athologist Signature Vanc Trough 15.4 mg/L [facility] Comment: Therapeutic range for complicated infect ions such as bacteremia, endocarditis, osteomyelitis, meningitis, and hospital- acquired pneumonia caused by S. aureus: 15-20 mg/L Therapeutic range for other indications: 10-15 mg/L Toxic: >25mg/L Reference: Vancomycin Therapeutic Monitoring: Revbettye w and Recommendations from the ASHP, IDSA [...] Address City/State/ZIP Code Phon e Number [address] CERNER MILLENNIUM POCT Glucose (06/18/2013 9:53 AM EST) P athologist Signature POC Glucose 169 60 - 199 CERNER mg/dL [facility] Comment: Supplemental ranges: <110 mg/dL before meals <200 mg/dL all other times of the day Specimen Anatomical Collection Method Collection Time Receive d Time (Source) Location / / Volume Laterality Blood specimen 06/18/2013 9:53 AM 013 9:53 (specimen) EST AM EST Tammy Mccann MD POINT OF CARE TEST ORDERABLE S Performing Organization Address City/[facility]/ZIP Code Phon e Number [address] CERNER MILLENNIUM POCT Glucose (06/18/2013 9:30 AM EST) P athologist Signature POC Glucose 169 60 - 199 CERNER mg/dL [facility] Comment: Supplemental ranges: <110 mg/dL before meals <200 mg/dL all other times of the day Specimen Anatomical Collection Method Collection Time Receive d Time (Source) Location / / Volume Laterality Blood specimen 06/18/2013 9:30 AM 013 9:30 (specimen) EST AM EST Tammy Mccann MD POINT OF CARE TEST ORDERABLE S Performing Organization Address City/[facility]/[place] [address] CERNER MILLENNIUM Urine culture Indwelling Catheter Urine (06/18/2013 9:18 AM EST) Patholo gist Method Time Signature Urine Culture CERNER ? Patient Name: LEROY DAILEY ?Ordered By: TAMMY MCCANN ? MR#: [id number] ?LOC: ??ICUS ? /Sex: ??1955 (58 years), [...] Organization Address City/State/[place] [address] HOLLI [facility] Lower Respiratory Culture Tracheal Aspirate (06/18/2013 9:18 AM EST) Component Value Ref Test Analysis Performed At [facility] gist Range Method Time Signature Lower CERNER Respiratory ? Patient Name: LEROY DAILEY ?Ordered By: TAMMY MCCANN MILLTUCSON [facility] HOSPITALIUM Culture ? MR#: [id number] ?LOC: ??ICUS ? /Sex: ??1955 (58 years), [...] - GENERAL ORDER STEPHANIE Performing Organization Address City/[facility] e [address] CERNER MILLENNIUM Lipase (06/18/2013 8:30 AM EST) athologist Signature Lipase 9 0 - 60 CERNER unit/L MILLENNIUM Specimen Anatomical Collection Method Collection Time Receive d Time (Source) Location / / Volume Laterality Blood specimen 06/18/2013 8:30 AM 013 9:38 (specimen) EST AM EST Resulting Agency Comment Spec In Lab Ev Buckner MD CHEMISTRY ORDERABLES Performing Organization Address [facility] [place] [address] CERNER MILLENNIUM (ABNORMAL) Amylase (06/18/2013 8:30 AM EST) P athologist Signature Amylase 8 (L) 28 - 100 CERNER unit/L MILLENNIUM Specimen Anatomical Collection Method Collection Time Receive d Time (Source) Location / / Volume Laterality Blood specimen 06/18/2013 8:30 AM 013 9:38 (specimen) EST AM EST Resulting Agency Comment Spec In Lab Ev Buckner MD CHEMISTRY ORDERABLES Performing Organization Address City/State/ZIP Code Phon e Number [place] [phone] CERNER MILLENNIUM (ABNORMAL) Comprehensive [...] intervals supplied above were not validated at [facility]. Results from pediatri c patients should be interpreted in conjunction to the patient's age, height and muscle mass. Sodium 140 135 - 145 mmol/L CERNER OMAKR NIUM Potassium 4.8 3.5 - 5.0 mmol/L [...] Address City/State/ZIP Code Phon e Number [address] CERNER MILLENNIUM POCT Glucose (06/18/2013 8:03 AM EST) athologist Signature POC Glucose 167 60 - 199 CERNER mg/dL [facility] Comment: Supplemental ranges: <110 mg/dL before meals <200 mg/dL all other times of the day Specimen Anatomical Collection Method Collection Time Receive d Time (Source) Location / / Volume Laterality Blood specimen 06/18/2013 8:03 AM 013 8:03 (specimen) EST AM EST Tammy Mccann MD POINT OF CARE TEST ORDERABLE S Performing Organization Address City/State/ZIP Code Phon e Number [address] CERNER MILLENNIUM POCT Glucose (06/18/2013 6:59 AM EST) P athologist Signature POC Glucose 168 60 - 199 CERNER mg/dL [facility] Comment: Supplemental ranges: <110 mg/dL before meals <200 mg/dL all other times of the day Specimen Anatomical Collection Method Collection Time Receive d Time (Source) Location / / Volume Laterality Blood specimen 06/18/2013 6:59 AM 013 6:59 (specimen) EST AM EST Tammy Mccann MD POINT OF CARE TEST ORDERABLE S Performing Organization Address City/State/[place] [address] CERNER [facility] Urine culture Urine (06/18/2013 6:37 AM EST) Patholo gist Method Time Signature Urine Culture CERNER ? Patient Name: LEROY ADILEY ?Ordered By: TAMMY MCCANN [facility] ? MR#: [id number] ?LOC: ??ICUS ? /Sex: ??1955 (58 years), ? Male ? PROCEDURE: Urine Culture ?SOURCE: U [facility] ? COLLECTED: 06/18/2013 06:37 ? STARTED: 06/18/2013 [...] - GENERAL ORDER STEPHANIE Performing Organization Address City/[facility]/ZIP Code Phon e Number [address] CERNER MILLENNIUM (ABNORMAL) Urinalysis with microscopic (06/18/2013 6:37 AM EST) [facility] gist Method Time Signature Glucose UA Negative [...] UA Clear Clear CERNER MILLENNIU M Spec Gravel Switch UA 1.011 1.002 - 1.030 [facility] MIL LENNIUM Color UA Yellow Yellow CERNER MILLENNIUM RBC UA 3 0 - 3 /HPF CERNER MILLENNIUM WBC UA 2 0 - 3 /HPF [facility] MILLENNIUM Bacteria UA Rare (A) None /HPF CERNER MILLENNIUM Specimen Anatomical Collection Method Collection Time Receive d Time (Source) Location / / Volume Laterality Urine specimen 06/18/2013 6:37 AM 013 6:50 (specimen) EST AM EST Resulting Agency Comment Spec In Lab Tammy Mccann MD URINE ORDERABLES Performing Organization Address City/[facility]/ZIP Code Phon e Number [address] [facility] POCT Glucose (06/18/2013 6:12 AM EST) athologist [...] Organization Address City/State/[place] [address] CERNER MILLENNIUM Differential, Automated (06/18/2013 [...] Address City/State/ZIP Code Phon e Number [address] [facility]LAST[facility]ITALIUM (ABNORMAL) Magnesium (06/18/2013 6:10 AM EST) P athologist Signature Magnesium 0.62 (L) 0.69 - 1.07 CERNER mmol/L [facility] Specimen Anatomical Collection Method Collection Time Receive d Time (Source) Location / / Volume Laterality Blood specimen 06/18/2013 6:10 AM 013 6:17 (specimen) EST AM EST Resulting Agency Comment Spec In Lab Tammy Mccann MD CHEMISTRY ORDERABLES Performing Organization Address City/[facility]/ZIP Code Phon e Number [address] CERNER MILLTUCS[facility]ITALIUM (ABNORMAL) BMP w/fasting Glucose (06/18/2013 6:10 AM EST) P athologist Signature Glucose 163 (H) 65 - 99 CERNER Fasting mg/dL [facility] Comment: ?Fasting* Glucose Interpretive C riteria [...] of Diabetes Mellitus, Position Statement from the [employer]. ??Diabete s Care, Volume 33, Supplement 1, Jul 2009 BUN 26 (H) 10 - 20 mg/dL [facility]NER [facility] M Creatinine 1.59 (H) 0.80 - 1.50 mg/dL CERNER MILL ENNIUM Comment: Please note that the pediatric reference intervals supplied above were not validated at [facility]. Results from pediatri c patients should be [...] Organization Address City/State/[place] [address] CERNER MILLENNIUM (ABNORMAL) CBC [...] Organization Address City/State/ZIP Code Phon e Number [place] [phone] CERNER MILLENNIUM (ABNORMAL) BLOOD [...] Comment: Total Hemoglobin (in gm/dL) ?Based on [facility] Hematology ran ges: ?Age ?Referen ce Range [...] Mccann MD CHEMISTRY ORDERABLES Performing Organization Address City/[facility]/ZIP Code Phon e Number [address] CERNER MILLENNIUM POCT Glucose [...] CARE TEST ORDERABLE S Performing Organization Address City/[facility]/ZIP Code Phon e Number [address] CERNER MILLENNIUM POCT Glucose (06/18/2013 3:14 AM EST) athologist Signature POC Glucose 161 60 - 199 CERNER mg/dL MILLENNIUM Comment: [...] Address City/State/ZIP Code Phon e Number [address] CERNER MILLENNIUM POCT Glucose (06/18/2013 2:15 AM EST) athologist Signature POC Glucose 137 60 - 199 CERNER mg/dL MILLENNI[facility] Comment: Supplemental ranges: <110 mg/dL before meals <200 mg/dL all other times of the day Specimen Anatomical Collection Method Collection Time Receive d Time (Source) Location / / Volume Laterality Blood specimen 06/18/2013 2:15 AM 013 2:15 (specimen) EST AM EST Tammy Mccann MD POINT OF CARE TEST ORDERABLE S Performing Organization Address City/[facility]/[place] [address] CERNER MILLENNIUM (ABNORMAL) Magnesium (06/18/2013 2:15 AM EST) P athologist Signature Magnesium 0.65 (L) 0.69 - 1.07 CERNER mmol/L MILLENNIUM Specimen Anatomical Collection Method Collection Time Receive d Time (Source) Location / / Volume Laterality Blood specimen 06/18/2013 2:15 AM 013 2:24 (specimen) EST AM EST Resulting Agency Comment Spec In Lab Tammy Mccann MD CHEMISTRY ORDERABLES Performing Organization Address [facility] [place] [address] CERNER MILLENNIUM (ABNORMAL) Potassium (06/18/2013 2:15 AM EST) P athologist Signature Potassium 5.1 (H) 3.5 - 5.0 CERNER mmol/L MILLENNIUM [...] Mccann MD CHEMISTRY ORDERABLES Performing Organization Address [facility]/ZIP [facility] Phon e Number [address] CERNER MILLENNIUM POCT Glucose (06/18/2013 1:06 AM EST) P athologist Signature POC Glucose 187 60 - [...] CARE TEST ORDERABLE S Performing Organization Address City/[facility]/[place] [address] CERNER MILLENNIUM POCT Glucose [...] CARE TEST ORDERABLE S Performing Organization Address City/[facility] [facility]/ZIP Code Phon e Number [address] CERNER MILLENNIUM POCT Glucose (06/17/2013 10:58 PM EST) athologist Signature POC Glucose 153 60 - 199 CERNER mg/dL MILLENNIUM Comment: Supplemental ranges: <110 mg/dL before meals <200 mg/dL all other times of the day Specimen Anatomical Collection Method Collection Time Receive d Time (Source) Location / / Volume Laterality Blood specimen 06/17/2013 10:58 3 (specimen) PM EST 10:58 PM EST Tammy Mccann MD POINT OF CARE TEST ORDERABLE S Performing Organization Address City/[facility]/ZIP Code Phon e Number [address] CERNER MILLENNIUM (ABNORMAL) Potassium (06/17/2013 10:20 PM EST) athologist Signature Potassium 5.3 (H) 3.5 - 5.0 CERNER mmol/L [facility] Comment: Please note: ??Patients with WBC [...] Address City/State/ZIP Code Phon e Number [address] CERNER MILLENNIUM (ABNORMAL) Magnesium (06/17/2013 10:20 PM EST) athologist Signature Magnesium 0.62 (L) 0.69 - 1.07 CERNER mmol/L MILLENNIUM Specimen Anatomical Collection Method Collection Time Receive d Time (Source) Location / / Volume Laterality Blood specimen 06/17/2013 10:20 3 (specimen) PM EST 10:25 PM EST Resulting Agency Comment Spec In Lab Tammy Mccann MD CHEMISTRY ORDERABLES Performing Organization Address City/[facility]/ZIP Code Phon e Number [address] CERNER MILLENNIUM POCT Glucose [...] CARE TEST ORDERABLE S Performing Organization Address City/[facility]/ZIP Code Phon e Number [address] CERNER MILLENNIUM POCT Glucose (06/17/2013 9:07 PM EST) athologist Signature POC Glucose 135 60 - [...] Organization Address City/State/[place] [address] CERNER MILLENNIUM (ABNORMAL) BLOOD GAS 2 ARTERIAL (06/17/2013 8:48 PM EST) [facility] gist Method Time Signature pH Art 7.21 CERNER (Critical) MILLENNIUM pCO2 Art 45 mmHg CERNER MILLENNIUM pO2 Art 70 (L) mmHg CERNER MILLENNIUM HCO3 Art 17.6 (L) mmol/L CERNER MILLENNIUM BE Art -10.3 (L) mmol/L CERNER MILLENNIUM Hgb Blood Gas 11.0 (L) gm/dL CERNER MILLENNIUM Comment: Total Hemoglobin (in gm/dL) ?Based on [facility] Hematology ran ges: ?Age ?Referen ce Range [...] Organization Address City/State/[place] [address] CERNER MILLENNIUM POCT Glucose (06/17/2013 8:02 PM EST) P athologist Signature POC Glucose 157 60 - [...] Address City/State/ZIP Code Phon e Number [address] CERNER MILLENNIUM POCT Glucose (06/17/2013 6:43 PM EST) athologist Signature POC Glucose 155 60 - 199 CERNER mg/dL [facility] Comment: Supplemental ranges: <110 mg/dL before meals <200 mg/dL all other times of the day Specimen Anatomical Collection Method Collection Time Receive d Time (Source) Location / / Volume Laterality Blood specimen 06/17/2013 6:43 PM 013 6:43 (specimen) EST PM EST Tammy Mccann MD POINT OF CARE TEST ORDERABLE S Performing Organization Address City/[facility]/ZIP Code Phon e Number [address] CERNER MILLENNIUM Lactic acid, plasma (06/17/2013 6:15 PM EST) athologist Signature Lactate 0.5 0.5 - 2.2 CERNER mmol/L [facility] Specimen Anatomical Collection Method Collection Time Receive d Time (Source) Location / / Volume Laterality Blood specimen 06/17/2013 6:15 PM 013 6:19 (specimen) EST PM EST Resulting Agency Comment Spec In Lab Tammy Mccann MD CHEMISTRY ORDERABLES Performing Organization Address City/State/[place] [address] CERNER MILLENNIUM (ABNORMAL) BLOOD [...] Hgb Blood Gas 10.7 (L) gm/dL CERNER MILLENNIU M Comment: Total Hemoglobin (in gm/dL) ?Based on [facility] Hematology ran ges: ?Age ?Referen ce Range [...] Mccann MD CHEMISTRY ORDERABLES Performing Organization Address City/[facility] [place] [address] CERNER MILLENNIUM (ABNORMAL) Calcium Ionized Whole Blood, ART (06/17/2013 5:45 PM EST) athologist Signature ICa Whole 1.19 1.15 - CERNER Blood 1.33 MILLENNIUM mmol/L Comment: Reference Ranges: ?? < 19 yrs: 1.22 - 1.37 mmol/L ? Adults: 1.15 - 1.33 mmol/L Note: ??Total bilirubin higher than 20 m g/dL may lead to falsely low ionized calcium. pH Art 7.12 (Critical) 7.35 - 7.45 CERNER MILLE NNIUM Comment: called to kaushik rose at 3 17:59 by mike Specimen Anatomical Collection Method Collection Time Receive d Time (Source) Location / / Volume Laterality Blood specimen 06/17/2013 5:45 PM 013 5:53 (specimen) EST PM EST Resulting Agency Comment Spec In Lab Tammy Mccann MD CHEMISTRY ORDERABLES Performing Organization Address City/[facility]/[place] [address] CERNER MILLENNIUM Phosphorus (06/17/2013 5:45 PM EST) P athologist Signature Phosphorus 3.6 2.5 - 4.5 CERNER mg/dL MILLENNIUM Specimen Anatomical Collection Method Collection Time Receive d Time (Source) Location / / Volume Laterality Blood specimen 06/17/2013 5:45 PM 013 5:53 (specimen) EST PM EST Resulting Agency Comment Spec In Lab Tammy Mccann MD CHEMISTRY ORDERABLES Performing Organization Address City/State/ZIP Code Phon e Number [address] CERNER MILLENNIUM (ABNORMAL) Magnesium (06/17/2013 5:45 PM EST) athologist Signature Magnesium 0.55 (L) 0.69 - 1.07 CERNER mmol/L [facility] Specimen Anatomical Collection Method Collection Time Receive d Time (Source) Location / / Volume Laterality Blood specimen 06/17/2013 5:45 PM 013 5:53 (specimen) EST PM EST Resulting Agency Comment Spec In Lab Tammy Mccann MD CHEMISTRY ORDERABLES Performing Organization Address City/[facility]/ZIP Code Phon e Number [address] CERNER MILLENNIUM (ABNORMAL) BMP w/fasting Glucose (06/17/2013 5:45 PM EST) athologist Signature Glucose 181 (H) 65 - 99 CERNER Fasting mg/dL [facility] Comment: ?Fasting* Glucose Interpretive C riteria Normal [...] of Diabetes Mellitus, Position Statement from the [employer]. ??Diabete s Care, Volume 33, Supplement 1, Jul 2009 BUN 27 (H) 10 - 20 mg/dL CERNER MILLENNIU M Creatinine 1.77 (H) 0.80 - 1.50 mg/dL CERNER MILL ENNIUM Comment: Please note that the pediatric reference intervals supplied above were not validated at [facility]. Results from pediatri c patients should be [...] Organization Address City/State/ZIP Code Phon e Number [place] [id number] CERNER MILLENNIUM POCT Glucose (06/17/2013 5:19 PM EST) P athologist Signature POC Glucose 169 [...] Organization Address City/State/[place] [address] CERNER MILLENNIUM POCT Glucose (06/17/2013 4:11 PM EST) athologist Signature POC Glucose 191 60 - 199 CERNER mg/dL [facility] Comment: Supplemental ranges: <110 mg/dL before meals <200 mg/dL all other times of the day Specimen Anatomical Collection Method Collection Time Receive d Time (Source) Location / / Volume Laterality Blood specimen 06/17/2013 4:11 PM 013 4:11 (specimen) EST PM EST Tammy Mccann MD POINT OF CARE TEST ORDERABLE S Performing Organization Address City/State/[place] [address] [facility] [facility] chest WO contrast (06/17/2013 3:37 PM [...] Glucose 165 60 - 199 CERNER mg/dL [facility] Comment: Supplemental ranges: <110 mg/dL before meals <200 mg/dL all other times of the day Specimen Anatomical Collection Method Collection Time Receive d Time (Source) Location / / Volume Laterality Blood specimen 06/17/2013 2:48 PM 013 2:48 (specimen) EST PM EST Tammy Mccann MD POINT OF CARE TEST ORDERABLE S Performing Organization Address City/State/[place] [address] CERNER MILLENNIUM (ABNORMAL) Potassium (06/17/2013 2:30 PM EST) athologist Signature Potassium 5.6 (H) 3.5 - 5.0 CERNER mmol/L [facility] Comment: Please note: ??Patients with WBC [...] Address City/State/ZIP Code Phon e Number [address] CERNER MILLENNIUM (ABNORMAL) POCT Glucose (06/17/2013 2:14 PM EST) athologist Signature POC Glucose 211 (H) 60 - 199 CERNER mg/dL [facility] Comment: Supplemental ranges: <110 mg/dL before meals <200 mg/dL all other times of the day Specimen Anatomical Collection Method Collection Time Receive d Time (Source) Location / / Volume Laterality Blood specimen 06/17/2013 2:14 PM 013 2:14 (specimen) EST PM EST Tammy Mccann MD POINT OF CARE TEST ORDERABLE S Performing Organization Address City/State/[place] [address] CERNER MILLENNIUM (ABNORMAL) POCT Glucose (06/17/2013 1:02 PM EST) athologist Signature POC Glucose 209 (H) 60 - 199 CERNER mg/dL [facility] Comment: Supplemental ranges: <110 mg/dL before meals <200 mg/dL all other times of the day Specimen Anatomical Collection Method Collection Time Receive d Time (Source) Location / / Volume Laterality Blood specimen 06/17/2013 1:02 PM 2 013 1:02 (specimen) EST PM EST Tammy Mccann MD POINT OF CARE TEST ORDERABLE S Performing Organization Address City/[facility]/ZIP Code Phon e Number [address] [facility] (ABNORMAL) POCT Glucose (06/17/2013 11:12 AM EST) athologist Signature POC Glucose 223 (H) 60 - 199 CERNER mg/dL [facility] Comment: Supplemental ranges: <110 mg/dL before meals <200 mg/dL all other times of the day Specimen Anatomical Collection Method Collection Time Receive d Time (Source) Location / / Volume Laterality Blood specimen 06/17/2013 11:12 3 (specimen) AM EST 11:12 AM EST Tammy Mccann MD POINT OF CARE TEST ORDERABLE S Performing Organization Address City/[facility]/ZIP Code Phon e Number [address] [facility] Tacrolimus level (06/17/2013 11:10 AM EST) athologist [facility] Tacrolimus Lvl 8.1 ng/mL [facility] Comment: Trough therapeutic: 5-15 ng/mL Specimen Anatomical Collection Method Collection Time Receive d Time (Source) Location / / Volume Laterality Blood specimen 06/17/2013 11:10 3 8:12 (specimen) AM EST AM EST Resulting Agency Comment Spec In Lab Tammy Mccann MD CHEMISTRY ORDERABLES Performing Organization Address City/[facility]/ZIP Code Phon e Number [address] [facility] Lower Respiratory Culture Tracheal Aspirate (06/17/2013 10:48 AM EST) Component Value Ref Test Analysis Performed At [facility] gist Range Method Time Signature Lower CERNER Respiratory ? Patient Name: LEROY DAILEY ?Ordered By: TAMMY MCCANN [facility] Culture ? MR#: [id number] ?LOC: ??ICUS ? /Sex: ??1955 (58 years), [...] Organization Address City/State/[place] [address] HOLLI MÉNDEZ (ABNORMAL) POCT Glucose (06/17/2013 8:40 AM EST) P athologist Signature POC Glucose 215 (H) 60 [...] CARE TEST ORDERABLE S Performing Organization Address City/[facility]/[place] [address] CERNER MILLENNIUM (ABNORMAL) Potassium (06/17/2013 8:35 AM EST) athologist Signature Potassium 5.7 (H) 3.5 - 5.0 CERNER mmol/L MILLENNIUM [...] Mccann MD CHEMISTRY ORDERABLES Performing Organization Address City/[facility]/ZIP Code Phon e Number [address] CERNER MILLENNIUM POCT Glucose (06/17/2013 6:30 AM EST) athologist Signature POC Glucose 186 60 - 199 CERNER mg/dL MILLENNIUM Comment: Supplemental ranges: <110 mg/dL before meals <200 mg/dL all other times of the day Specimen Anatomical Collection Method Collection Time Receive d Time (Source) Location / / Volume Laterality Blood specimen 06/17/2013 6:30 AM 013 6:30 (specimen) EST AM EST Tammy Mccann MD POINT OF CARE TEST ORDERABLE S Performing Organization Address City/[facility]/[place] [address] CERNER MILLENNIUM (ABNORMAL) POCT [...] Address City/State/ZIP Code Phon e Number [address] CERNER MILLENNIUM (ABNORMAL) Differential, [...] Mccann MD HEMATOLOGY ORDERABLES Performing Organization Address [facility] e Number [address] CERNER MILLENNIUM Vancomycin, trough (06/17/2013 3:30 AM EST) P athologist Signature Vanc Trough 20.4 mg/L CERNER MILLENNIUM Comment: Therapeutic range for complicated infect ions [...] Buckner MD CHEMISTRY ORDERABLES Performing Organization Address [facility] [place] [address] CERNER MILLENNIUM (ABNORMAL) CBC (with Diff) (06/17/2013 3:30 AM [...] 125 (L) 145 - 370 x10(3)/mcL CERNER SC LLENNIUM RDWSD 55.0 (H) 35.0 - 46.0 [...] Organization Address City/State/[place] [address] CERNER MILLENNIUM (ABNORMAL) Basic Metabolic Panel (non-fasting) (06/17/2013 3:30 AM EST) athologist Signature Glucose Lvl 215 (H) 60 - 199 CERNER mg/dL MILLENNIUM Comment: Diabetes: >=200 mg/dL plus symp toms BUN 32 (H) 10 - 20 mg/dL CERNER MILLENNIU M Creatinine 1.96 (H) 0.80 - 1.50 mg/dL CERNER MILL ENNIUM Comment: Please note that the pediatric reference intervals supplied above were not validated at [facility]. Results from pediatri c patients should be [...] Mccann MD CHEMISTRY ORDERABLES Performing Organization Address City/[facility]/ZIP Code Phon e Number [address] CERNER MILLENNIUM POCT Glucose (06/17/2013 2:53 AM EST) athologist Signature POC Glucose 165 60 - 199 CERNER mg/dL [facility] Comment: Supplemental ranges: <110 mg/dL before meals <200 mg/dL all other times of the day Specimen Anatomical Collection Method Collection Time Receive d Time (Source) Location / / Volume Laterality Blood specimen 06/17/2013 2:53 AM 013 2:53 (specimen) EST AM EST Tammy Mccann MD POINT OF CARE TEST ORDERABLE S Performing Organization Address City/[facility]/ZIP Code Phon e Number [address] CERNER MILLENNIUM EKG 12 Lead (06/17/2013 2:20 AM EST) Component Value Ref Range Test Analysis Performed Pathologis t Method Time At Signature Ventricular rate 66 BPM MUSE SYSTEM Atrial Rate 66 BPM MUSE SYSTEM P-R Interval 182 ms MUSE SYSTEM QRS Duration 104 ms MUSE SYSTEM Q-T Interval 406 ms MUSE SYSTEM QTC Calculated 425 ms MUSE SYSTEM (Bezet) Calculated P [place] 4 degrees MUSE SYSTEM Calculated R [place] -13 degrees MUSE SYSTEM Calculated T [place] 58 degrees MUSE SYSTEM INTERPRETATION Normal sinus [...] City/State/ZIP Code Phon e Number MUSE SYSTEM POCT Glucose (06/17/2013 1:11 AM EST) athologist Signature POC Glucose 129 60 - 199 CERNER mg/dL [facility] Comment: Supplemental ranges: <110 mg/dL before meals <200 mg/dL all other times of the day Specimen Anatomical Collection Method Collection Time Receive d Time (Source) Location / / Volume Laterality Blood specimen 06/17/2013 1:11 AM 013 1:11 (specimen) EST AM EST Tammy Mccann MD POINT OF CARE TEST ORDERABLE S Performing Organization Address City/State/[place] [address] CERNER MILLENNIUM (ABNORMAL) Potassium (06/17/2013 12:15 AM EST) athologist Signature Potassium 6.4 3.5 - 5.0 CERNER (Critical) mmol/L [facility] Comment: Called by: RACHAEL, Read back by: MELLY Hayes, Date/Time:06/17/13 01:29. [...] Address City/State/ZIP Code Phon e Number [address] CERNER MILLENNIUM POCT Glucose [...] CARE TEST ORDERABLE S Performing Organization Address City/[facility]/ZIP Code Phon e Number [address] CERNER MILLENNIUM POCT Glucose [...] Address City/State/ZIP Code Phon e Number [address] CERNER MILLENNIUM POCT Glucose (06/16/2013 10:06 PM EST) P athologist Signature POC Glucose 118 60 - [...] CARE TEST ORDERABLE S Performing Organization Address City/[facility]/[place] [address] CERNER bublIUM XR abdomen 1 view (06/16/2013 9:47 PM [...] Glucose 119 60 - 199 CERNER mg/dL [facility] Comment: Supplemental ranges: <110 mg/dL before meals <200 mg/dL all other times of the day Specimen Anatomical Collection Method Collection Time Receive d Time (Source) Location / / Volume Laterality Blood specimen 06/16/2013 9:44 PM 013 9:44 (specimen) EST PM EST Tammy Mccann MD POINT OF CARE TEST ORDERABLE S Performing Organization Address City/[facility]/[place] [address] CERNER bublIUM POCT Glucose (06/16/2013 9:08 PM EST) athologist [...] CARE TEST ORDERABLE S Performing Organization Address City/[facility]/ZIP Code Phon e Number [address] CERNER MILLENNIUM POCT Glucose [...] CARE TEST ORDERABLE S Performing Organization Address City/[facility]/ZIP Code Phon e Number [address] CERNER MILLENNIUM (ABNORMAL) Potassium [...] Mccann MD CHEMISTRY ORDERABLES Performing Organization Address City/[facility]/ZIP Code Phon e Number [address] CERNER MILLENNIUM Tacrolimus level [...] Address City/State/ZIP Code Phon e Number [address] CERNER MILLENNIUM POCT Glucose [...] CARE TEST ORDERABLE S Performing Organization Address City/[facility]/ZIP Code Phon e Number [address] CERNER MILLENNIUM POCT Glucose [...] Organization Address City/State/[place] [address] CERNER MILLENNIUM POCT Glucose [...] CARE TEST ORDERABLE S Performing Organization Address City/[facility]/ZIP [facility] Phon e Number [address] CERNER MILLENNIUM POCT Glucose [...] CARE TEST ORDERABLE S Performing Organization Address City/[facility]/ZIP Code Phon e Number [address] CERNER MILLENNIUM Potassium (06/16/2013 4:00 PM EST) athologist [facility] Potassium 4.9 3.5 - 5.0 CERNER mmol/L [...] Mccann MD CHEMISTRY ORDERABLES Performing Organization Address City/[facility]/[place] [address] CERNER MILLENNIUM POCT Glucose (06/16/2013 3:01 PM EST) athologist Signature POC Glucose 198 60 - 199 CERNER mg/dL [facility] Comment: Supplemental ranges: <110 mg/dL before meals <200 mg/dL all other times of the day Specimen Anatomical Collection Method Collection Time Receive d Time (Source) Location / / Volume Laterality Blood specimen 06/16/2013 3:01 PM 013 3:01 (specimen) EST PM EST Tammy Mccann MD POINT OF CARE TEST ORDERABLE S Performing Organization Address City/State/ZIP Code Phon e Number [address] CERNER MILLENNIUM POCT Glucose (06/16/2013 2:34 PM EST) athologist Signature POC Glucose 197 60 - 199 CERNER mg/dL [facility] Comment: Supplemental ranges: <110 mg/dL before meals <200 mg/dL all other times of the day Specimen Anatomical Collection Method Collection Time Receive d Time (Source) Location / / Volume Laterality Blood specimen 06/16/2013 2:34 PM 013 2:34 (specimen) EST PM EST Tammy Mccann MD POINT OF CARE TEST ORDERABLE S Performing Organization Address City/State/ZIP Code Phon e Number [address] CERNER MILLENNIUM (ABNORMAL) POCT Glucose (06/16/2013 1:11 PM EST) athologist Signature POC Glucose 299 (H) 60 - 199 CERNER mg/dL [facility] Comment: Supplemental ranges: <110 mg/dL before meals <200 mg/dL all other times of the day Specimen Anatomical Collection Method Collection Time Receive d Time (Source) Location / / Volume Laterality Blood specimen 06/16/2013 1:11 PM 013 1:11 (specimen) EST PM EST Tammy Mccann MD POINT OF CARE TEST ORDERABLE S Performing Organization Address City/State/ZIP Code [place] [address] CERNER MILLENNIUM EKG 12 [...] 432 ms MUSE SYSTEM (Bezet) Calculated P [place] 63 degrees MUSE SYSTEM Calculated R [place] -21 degrees MUSE SYSTEM Calculated T [place] 56 degrees MUSE SYSTEM INTERPRETATION Normal sinus [...] 7.26 CERNER (Critical) MILLENNIUM Comment: Noted by instrument adjuster. pCO2 Art 38 mmHg CERNER MILLENNIUM pO2 Art 209 (H) mmHg CERNER MILLENNIUM HCO3 Art 16.6 (L) mmol/L CERNER MILLENNIUM BE Art -10.6 (L) mmol/L CERNER MILLENNIUM Hgb Blood Gas 11.0 (L) gm/dL HOLLI NEUMANN M Comment: Total Hemoglobin (in gm/dL) ?Based on [facility] Hematology ran ges: ?Age ?Referen ce Range [...] Organization Address City/State/[place] [address] CERNER MILLENNIUM (ABNORMAL) POCT [...] Address City/State/ZIP Code Phon e Number [address] [facility] MILL[facility] (ABNORMAL) Beta Hydroxybutyrate (06/16/2013 12:00 PM EST) athologist Signature BOHB 0.34 (H) 0.00 - 0.30 CERNER mmol/L ENNIUM Comment: Reference range: ??0.00-0.30 mmo1/L, bas ed on an overnight fast. ??Children may be higher. Specimen Anatomical Collection Method Collection Time Receive d Time (Source) Location / / Volume Laterality Blood specimen 06/16/2013 12:00 3 (specimen) PM EST 12:09 PM EST Resulting Agency Comment Spec In Lab Tammy Mccann MD CHEMISTRY ORDERABLES Performing Organization Address City/State/ZIP Code Phon e Number [address] CERNER MILLENNIUM (ABNORMAL) Potassium [...] Mccann MD CHEMISTRY ORDERABLES Performing Organization Address City/[facility]/ZIP Code Phon e Number [address] CERNER MILLENNIUM (ABNORMAL) POCT Glucose (06/16/2013 11:17 AM EST) P athologist Signature POC Glucose 270 (H) 60 - 199 CERNER mg/dL [facility] Comment: Supplemental ranges: <110 mg/dL before meals <200 mg/dL all other times of the day Specimen Anatomical Collection Method Collection Time Receive d Time (Source) Location / / Volume Laterality Blood specimen 06/16/2013 11:17 3 (specimen) AM EST 11:17 AM EST Tammy Mccann MD POINT OF CARE TEST ORDERABLE S Performing Organization Address City/[facility]/ZIP Code Phon e Number [address] CERNER MILLENNIUM (ABNORMAL) POCT Glucose (06/16/2013 9:57 AM EST) P athologist Signature POC Glucose 294 (H) 60 - 199 CERNER mg/dL [facility] Comment: Supplemental ranges: <110 mg/dL before meals <200 mg/dL all other times of the day Specimen Anatomical Collection Method Collection Time Receive d Time (Source) Location / / Volume Laterality Blood specimen 06/16/2013 9:57 AM 013 9:57 (specimen) EST AM EST Tammy Mccann MD POINT OF CARE TEST ORDERABLE S Performing Organization Address City/[facility]/ZIP Code Phon e Number [address] CERNER MILLENNIUM XR chest [...] vascular hypertension. Clinical correlation. Impression Kathya Haddad CATHEAD OPERATOR IMG DX ORDERABLES XR abdomen 1 view [...] tube not visualized on image. Impression Kathya Haddad CATHEAD OPERATOR IMG DX ORDERABLES (ABNORMAL) POCT Glucose (06/16/2013 8:01 AM EST) P athologist Signature POC Glucose 289 (H) 60 - 199 CERNER mg/dL [facility] Comment: Supplemental ranges: <110 mg/dL before meals <200 mg/dL all other times of the day Specimen Anatomical Collection Method Collection Time Receive d Time (Source) Location / / Volume Laterality Blood specimen 06/16/2013 8:01 AM 013 8:01 (specimen) EST AM EST Tammy Mccann MD POINT OF CARE TEST ORDERABLE S Performing Organization Address City/State/[place] [address] CERNER MILLENNIUM (ABNORMAL) BLOOD GAS 2 ARTERIAL (06/16/2013 7:55 AM EST) athologist Signature pH Art 7.13 CERNER (Critical) MILLENNIUM Comment: Noted by instrument adjuster. pCO2 Art 51 (Critical) mmHg HOLLI MILLSHELDONIJanneth Ramirez Comment: Noted by instrument adjuster. pO2 Art 194 (H) mmHg CERNER MILLENNIUM HCO3 Art 16.6 (L) mmol/L CERNER MILLENNIUM BE Art -12.6 (L) mmol/L CERNER MILLENNIUM Hgb Blood Gas 11.6 (L) gm/dL HOLLI Ramirez Comment: Total Hemoglobin (in gm/dL) ?Based on [facility] Hematology ran ges: ?Age ?Referen ce Range [...] mmol/L CERNER MILL ENNIUM Comment: Noted by instrument adjuster. Please note: Patients with WBC >100,000 may [...] Organization Address City/State/ZIP Code Phon e Number [place] [phone] CERNER MILLENNIUM (ABNORMAL) Differential, Automated (06/16/2013 7:00 AM EST) [facility] gist Method Time Signature Neutrophils % 74.7 [...] 7:05 (specimen) EST AM EST Kathya Haddad CATHEAD OPERATOR HEMATOLOGY ORDERABLES Performing Organization Address City/[facility]/ZIP Code Phon e Number [address] [facility] Lactic acid, plasma (06/16/2013 7:00 AM EST) P athologist Signature Lactate 0.7 0.5 - 2.2 CERNER mmol/L MILLENNIUM Specimen Anatomical Collection Method Collection Time Receive d Time (Source) Location / / Volume Laterality Blood specimen 06/16/2013 7:00 AM 013 7:05 (specimen) EST AM EST Resulting Agency Comment Spec In Lab Kathya Haddad CATHEAD OPERATOR CHEMISTRY ORDERABLES Performing Organization Address City/[facility]/ZIP Code Phon e Number [address] CERNER MILLENNIUM (ABNORMAL) Prothrombin Time (06/16/2013 7:00 AM EST) P athologist Signature PT 17.2 (H) 12.0 - 15.0 CERNER sec MILLENNIUM Comment: [facility] Transfusion Committee Guidelines: I NR less than [...] Agency Comment Spec In Lab Kathya Haddad CATHEAD OPERATOR HEMATOLOGY ORDERABLES Performing Organization Address City/State/ZIP Code Phon e Number [place] [phone] CERNER MILLENNIUM (ABNORMAL) Comprehensive metabolic panel (non-fasting) (06/16/2013 7:00 AM EST) P athologist Signature Glucose Lvl 280 (H) 60 - 199 CERNER mg/dL MILLENNIUM Comment: Diabetes: >=200 mg/dL plus symp toms BUN 37 (H) 10 - 20 mg/dL CERNER MILLENNIU M Creatinine 2.35 (H) 0.80 - 1.50 mg/dL CERNER MILL ENNIUM Comment: Please note that the pediatric reference intervals supplied above were not validated at [facility]. Results from pediatri c patients should be [...] Calcium 8.0 (L) 8.5 - 10.5 mg/dL CERDINH OMKAR NIUM Total Protein 7.1 6.4 - 8.3 gm/dL CERDINH MIL LENNIUM Albumin 3.0 (L) 3.2 - 5.2 gm/dL CERNER MILLENN IUM AST 13 0 - 39 unit/L CERNER MILLENNIU M ALT 17 0 - 55 unit/L CERNER MILLENNIU M Alk Phos 86 40 - 120 unit/L CERNER MILLENN IUM Total Bilirubin 1.2 0.2 - 1.3 mg/dL [facility] M ILLENNIUM Bili, Direct 0.8 (H) 0.0 - 0.3 mg/dL [facility] MILL ENNIUM Comment: result rechecked-DA Estimated GFR [...] Organization Address City/State/[place] [address] CERNER DOUGLASENNIUM (ABNORMAL) CBC (with Diff) (06/16/2013 7:00 AM [...] Organization Address City/State/[place] [address] [facility] Surgical Pathology Report (06/16/2013 5:46 AM EST) Component Value Ref Test Analysis Performed At [facility] gist Range Method Time Signature Surgical CERNER Pathology ? [facility] Report ? Provider: ?? TAMMY MCCANN ?Pt. Name: ?? ANAMIKA R, LEROY Lui ? Acc #: ?[id number] ?Pt. MRN: ?[id number] ? Col Date: ?? 06/16/20 13 ?/Sex: [...] Organization Address City/State/[place] [address] [facility] Specimen to Pathology (surgical or derm) (06/16/2013 5:37 AM EST) Specimen Anatomical Collection Method Collection Time Receive d Time (Source) Location / / Volume Laterality AP Specimen 06/16/2013 5:37 AM 3 5:37 EST AM EST Narrative HOLLI COLEENNIUM - 06/16/2013 5:[address] Specimen requisition ordered. ??Separate Pathology report to follow Tammy Mccann MD PATHOLOGY/CYTOLOGY ORDERABLE S Performing Organization Address City/State/[place] [address] CERNER MILLENNIUM (ABNORMAL) BLOOD GAS 2 ARTERIAL (06/16/2013 5:10 AM EST) P athologist Signature pH Art 7.22 CERNER (Critical) MILLENNIUM Comment: Noted by instrument adjuster. pCO2 Art 53 (Critical) mmHg DELLANER MILLENNIU M Comment: Noted by instrument adjuster. pO2 Art 134 (H) mmHg CERNER MILLENNIUM HCO3 Art 20.9 mmol/L CERNER MILLENNIUM BE Art -6.8 (L) mmol/L CERNER MILLENNIUM Hgb Blood Gas 11.6 (L) gm/dL CERNER MILLSHELDONIU M Comment: Total Hemoglobin (in gm/dL) ?Based on [facility] Hematology ran ges: ?Age ?Referen ce Range [...] Organization Address City/State/[place] [address] CERNER MILLENNIUM (ABNORMAL) Potassium (06/16/2013 3:49 AM EST) athologist Signature Potassium 6.2 3.5 - 5.0 CERNER (Critical) mmol/L MILLENNIUM Comment: Results rechecked. Called by: [facility], Read back by: Alondra Lino, Date/Time:06/16/13 [...] Organization Address City/State/[place] [address] [employer] XR chest routine PA & lateral (06/16/2013 [...] 438 ms MUSE SYSTEM (Bezet) Calculated P [place] 54 degrees MUSE SYSTEM Calculated R [place] -16 degrees MUSE SYSTEM Calculated T [place] 50 degrees MUSE SYSTEM INTERPRETATION Sinus rhythm [...] SYSTEM Blood culture (06/16/2013 2:00 AM EST) [facility] Method Time Signature Blood Culture CERNER ? Patient Name: LEROY DAILEY ?Ordered By: TAMMY MCCANN MILLENNIUM ? MR#: [id number] ?LOC: ??ICUS ? /Sex: ??1955 (58 years), [...] Organization Address City/State/[place] [address] CERNER MILLENNIUM (ABNORMAL) Differential, Manual (06/16/2013 1:45 AM EST) Patholo gist Method Time Signature Neutrophil % 65 [...] Organization Address City/State/[place] [address] CERNER MILLENNIUM Antibody screen (06/16/2013 1:45 AM EST) Analysis Performed At Patho logist Time Signature Ab Screen Negative CERNER Interp MILLENNIUM Expires at [id number] CERNER 2358 on: MILLENNIUM Specimen Anatomical Collection Method Collection Time Receive d Time (Source) Location / / Volume Laterality Blood specimen 06/16/2013 1:45 AM 013 2:06 (specimen) EST AM EST Resulting Agency Comment Spec In Lab Tammy Mccann MD BLOOD BANK ORDERABLES Performing Organization Address City/[facility]/[place] [address] CERNER Swift NavigationENNIUM ABO/Rh Typing (06/16/2013 1:45 AM EST) P athologist Signature ABORh Type O Pos CERNER MILLENNIUM Specimen Anatomical Collection Method Collection Time Receive d Time (Source) Location / / Volume Laterality Blood specimen 06/16/2013 1:45 AM 013 2:06 (specimen) EST AM EST Resulting Agency Comment Spec In Lab Tammy Mccann MD BLOOD BANK ORDERABLES Performing Organization Address City/[facility]/[place] [address] CERNER MILLENNIUM Gold Tube HOLD (06/16/2013 1:45 AM EST) P athologist Signature Gold Hold Sample in [facility] lab. MILLENNIUM Specimen Anatomical Collection Method Collection Time Receive d Time (Source) Location / / Volume Laterality Blood specimen 06/16/2013 1:45 AM 013 2:05 (specimen) EST AM EST Tammy Mccann MD CHEMISTRY ORDERABLES Performing Organization Address City/[facility]/[place] [address] CERNER MILLENNIUM Phosphorus (06/16/2013 1:45 AM EST) P athologist Signature Phosphorus 2.8 2.5 - 4.5 CERNER mg/dL MILLENNIUM Specimen Anatomical Collection Method Collection Time Receive d Time (Source) Location / / Volume Laterality Blood specimen 06/16/2013 1:45 AM 013 2:01 (specimen) EST AM EST Resulting Agency Comment Spec In Lab Tammy Mccann MD CHEMISTRY ORDERABLES Performing Organization Address City/[facility]/[place] [address] C[facility] (ABNORMAL) Magnesium (06/16/2013 1:45 AM EST) athologist Signature Magnesium 0.58 (L) 0.69 - 1.07 CERNER mmol/L [facility] Specimen Anatomical Collection Method Collection Time Receive d Time (Source) Location / / Volume Laterality Blood specimen 06/16/2013 1:45 AM 013 2:01 (specimen) EST AM EST Resulting Agency Comment Spec In Lab Tammy Mccann MD CHEMISTRY ORDERABLES Performing Organization Address City/State/ZIP Code Phon e Number [address] [facility] Lactic acid, plasma (06/16/2013 1:45 AM EST) athologist Signature Lactate 0.8 0.5 - 2.2 CERNER mmol/L [facility] Specimen Anatomical Collection Method Collection Time Receive d Time (Source) Location / / Volume Laterality Blood specimen 06/16/2013 1:45 AM 013 2:02 (specimen) EST AM EST Resulting Agency Comment Spec In Lab Tammy Mccann MD CHEMISTRY ORDERABLES Performing Organization Address City/State/ZIP Code Phon e Number [address] [facility] (ABNORMAL) CMP w/fasting Glucose (06/16/2013 1:45 AM EST) athologist Signature Glucose 197 (H) 65 - 99 CERNER Fasting mg/dL [facility] Comment: ?Fasting* Glucose Interpretive C riteria [...] of Diabetes Mellitus, Position Statement from the [place] [employer]. ??Diabete s Care, Volume 33, Supplement 1, Jul 2009 BUN 37 (H) 10 - 20 mg/dL CERNER MILLENNIU M Creatinine 2.51 (H) 0.80 - 1.50 mg/dL CERNER MILL ENNIUM Comment: Please note that the pediatric reference intervals supplied above were not validated at [facility]. Results from pediatri c patients should be [...] ENNIUM Estimated GFR 26 (L) >=60 CERNER MILLENNIU M Comment: This [...] Organization Address City/State/ZIP Code Phon e Number [place] [phone] CERNER MILLENNIUM (ABNORMAL) CBC [...] % MILLENNIUM MPV 9.3 9.0 - 12.0 CERNER fL MILLENNIUM Specimen Anatomical Collection Method Collection Time Receive d Time (Source) Location / / Volume Laterality Blood specimen 06/16/2013 1:45 AM 013 2:01 (specimen) EST AM EST Resulting Agency Comment Spec In Lab Tammy Mccann MD HEMATOLOGY ORDERABLES Performing Organization Address City/State/ZIP Code Phon e Number [place] [phone] [facility] Request for 2nd read CT abdomen & [...] intrapelvic process. ??No diverticulitis or appendicitis. Atrophic [place] kidneys with unremarkabl e appearing transplanted kidney [...] intrapelvic process. No diverticulitis or appendicitis. Atrophic [place] kidneys with unremarkabl e appearing transplanted kidney seen in left lower quadrant. Hepatosplenomegaly. Tammy Mccann MD IMG OUTSIDE INTERPRETATION O RDERABLES POCT Glucose (06/16/2013 12:59 AM EST) P athologist Signature POC Glucose 173 60 - 199 CERNER mg/dL [facility] Comment: Supplemental ranges: <110 mg/dL before meals <200 mg/dL all other times of the day Specimen Anatomical Collection Method Collection Time Receive d Time (Source) Location / / Volume Laterality Blood specimen 06/16/2013 12:59 3 (specimen) AM EST 12:59 AM EST Tammy Mccann MD POINT OF CARE TEST ORDERABLE S Performing Organization Address City/State/[place] [address] [facility] documented in this encounter Visit Diagnoses Not on filedocumented in this encounter Active and Recently Administered Medications Times are shown in EST. Scheduled Medication Order 06/25/2013 06/26/2013 06/27/2013 chlorhexidine (PERIDEX) 0.12 % oral solution 15 mL (CA NCELED) 0827 (Given - Provider: Shandra Eddy RN)2100 (Given - Provider: Ruth Wallace RN) 0926 (Given - Provider: Shandra Eddy RN)2120 [...] ( CANCELED) 0636 (Given - Provider: Ruth Wallace RN)1445 (Given - Provider: Shandra Eddy RN)2158 (Given - Provider: Ruth Wallace RN) 0643 (Given - Provider: Ruth Wallace, SHEILA)1321 (Given - Provider: Shandra Eddy RN)2120 (Given - Provider: Kim Sanchez RN) 0600 (Given - Provider: Jael Morin RN ) 5,000 Units, Subcutaneous, EVERY 8 HOURS SCHEDULED, First dose on Lucie 06/21/13 at 1400, Until Discontinued, Routine hydrALAZINE (APRESOLINE) tablet 50 mg (CANCELED) 0836 (Given - Provider: Shandra Edyd RN)1245 (Given - Provider: Shandra Eddy RN)1713 (Given - Provider: Shandra Eddy RN)2045 (Given - Provider: Ruth Wallace RN) 0925 (Given - Provider: Shandra Eddy RN)1219 (Given - Provider: Shandra Eddy, SHEILA)1650 (Given - Provider: Kim Sanchez RN)2120 (Given - Provider: Kim Sanchez RN) 0900 (Given - Provider: Shandra Eddy, SHEILA) [...] Units 0026 (Not Given - Provider: Ruth Wallace RN - Reason: Order parameters not met)0425 (Not Given - Provider: Ruth Wallace RN - Reason: Order parameters not met) 0021 (Given - Provider: Ruth Wallace RN)0355 (Not Given - Provider: Ruth Wallace RN - Reason: Order parameters not met)0909 (Given - Provider: Shandra Eddy RN)1215 (Given - Provider: Shandra Eddy RN) 0000 (Given - Provider: Jael Morin, RN)0400 (Given - Provider: Jael Morin, RN)0851 (Not Given - Provider: Shandra Eddy [...] not met) 1701 (Given - Provider: Kim Sanchez, SHEILA)2000 (Given - Provider: Kim Sanchez, SHEILA) n [...] Shandra Eddy RN)2048 (Given - Provider: Ruth Wallace, SHEILA) 0912 (Not Given - Provider: Shandra Eddy RN - Reason: Medication not available - Comment: not enough insulin in pen. will call pharmacy)1053 (Given - Provider: Shandra Eddy RN)2100 (Given - Provider: Kim Sanchez RN) 0851 (Given - Provider: Shandra Eddy RN) [...] Shandra Eddy RN)1445 (Given - Provider: Shandra Eddy RN)2044 (Given - Provider: Ruth Wallace RN) 0916 (Given - Provider: Shandra Eddy RN)155 (Given - Provider: Kim Sanchez, SHEILA)2120 (Given - Provider: Kim Sanchez RN) 0857 (Given - Provider: Shandra Eddy RN) 500 mg, Oral, 3 TIMES DAILY, First dose on Tue06/22/13 at 1400, Until Discontinued, Routine miconazole (MICOTIN) 2 % powder 0941 (Given - Provider : Shandra Eddy RN)2034 (Given - Provider: Ruth Wallace RN) 09 (Given - Provider: Shandra Eddy RN)2120 (Given - Provider: Kim Sanchez, SHEILA) 09 (Given - Provider: Shandra Eddy RN) Topical, 2 TIMES DAILY, First dose on Tue06/16/13 at 2330 montelukast (SINGULAIR) tablet 10 mg (CANCELED) 2044 ( Given - Provider: Ruth Wallace, SHEILA) 2120 (Given - Provider: Kim Sanchez RN) 10 mg, Oral, NIGHTLY, First dose on Tue06/16/13 at 0115, Until Discontinued, Routine mycophenolate (CELLCEPT) 200 mg/mL oral suspension 500 mg (CANCELED) 938 (Given - Provider: Shandra Eddy RN)2044 (Given - Provider: Ruth P Chiacchio, RN) 0920 (Given - Provider: Shandra Eddy RN)2121 (Given - Provider: Kim Sanchez, SHEILA) 0902 (Given - Provider: Shandra Eddy RN) 500 mg, Oral, 2 TIMES DAILY, First dose on Tue06/24/13 at 1000, Until Discontinued, Routine polyethylene glycol (MIRALAX) packet 17 g 0829 (Not Gi fan - Provider: Shandra Eddy, RN - Reason: Order parameters not met) 0926 (Not Given - Provider: Shandra Eddy RN [...] Jael Morin, RN)1153 (Given - Provider: Shandra Eddy RN) 80 mg, Oral, EVERY 6 HOURS SCHEDULED, Fi rst dose on Tue06/21/13 at 0600, Until Discontinued, Hold for HR < 60, SBP <90, Routine simvastatin (ZOCOR) tablet 10 mg (CANCELED) 1715 (Give n - Provider: Shandra Eddy RN) 1649 (Given - Provider: Kim Sanchez, SHEILA) 10 mg, Oral, EVERY EVENING, First dose o n 06/16/13 at 1700, Until Discontinued, Routine tacrolimus (PROGRAF) 1 mg/2 mL oral suspension 1 mg 08 37 (Given - Provider: Shandra Eddy, RN)2044 (Given - Provider: Ruth Wallace, SHEILA) 09 (Given - Provider: Shandra Eddy, RN)2120 (Given - Provider: Kim Sanchez RN) 09 (Given - Provider: Shandra Eddy, SHEILA) 1 mg, Oral, 2 TIMES DAILY, First dose on Tue06/19/13 at 2100, Until Discontinued, Routine PRN Medication Order 06/25/2013 06/26/2013 06/27/2013 albuterol (PROVENTIL) nebulizer solution 2.5 mg (CANCELED) 0034 (Given - Provider: Jael Morin RN) 2.5 mg, Nebulization, EVERY 2 HOURS PRN, Starting Tue06/20/13 at 1432, Until Tue06/27/13 at 1417, Wheezing, Routine documented in this encounter Care Teams Shuttlecock Feather Trimmer Relationship Specialty Start Date End Date Dc Ibanez MD PCP - General 04/02/13 04/01/14 ANAMARIA [address] [place] [address] documented as of this encounter
--- OUTSIDE RECORDS SUMMARY | 2022-05-24 10:58 | XMS_ITS | Encounter Summary ---
:1955 Author Organization [facility] [place] [address] Care Team Providers Name Role Phone Dc Ibanez MD Primary Care Provider Reason for Visit Reason Comments Right Leg Pain Right BKA 06/21/12 Encounter Details Date Type Department Care Team Description 05/04/2013 Office Visit Orthopaedics at [facility], DR CRISTIAN Olsen, below knee; [facility] Giovana Olsen, below knee, [place] [address] Social History Tobacco Use Types Packs/Day [...] Sign Reading Time Taken Comments Blood Pressure 130/65 05/04/2013 11:05 AM EDT Pulse 89 05/04/2013 11:05 AM EDT Temperature 36.9 ??C (98.4 ??F) 05/04/2013 11:05 AM EDT Respiratory Rate - - Oxygen Saturation - - Inhaled Oxygen Concentration - - Weight 149.7 kg (330 lb) 05/04/2013 11:05 AM EDT Height 193 cm (6' 4) 05/04/2013 11:05 AM EDT Body Mass Index 40.17 05/04/2013 11:05 AM EDT documented in this encounter Progress Notes Trung Billy PA - 05/04/2013 10:55 AM EDT PATIENT NAME: Leroy Torres AGE: 57 y.o. MR#: [id number] DATE OF VISIT: 05/04/2013 Case Date: 06/21/2011 BKA Surgeon:HENNA GAMINO JR, MD STAFF: Dr. Montez CHIEF COMPLAINT: Bilateral BKA HISTORY OF PRESENT ILLNESS Mr. Brian cline 57 y.o. year old male comes into clinic today for evaluationof his bilateral BKAs. Pt is currently doing well and is without complaints. His most recent HgA1c was 6.8. His most recent blood glucose level was 207. He states that he normally runs that high. He reports stopping his Victoza without informing his PCP secondary to back issues. He stats that he saw acommercial that reported back pain as a side effect of Victoza. In regards to his prosthetics, he iswithout complaints. PAST SURGICAL HX: Past Surgical History Procedure Date ??? Created [...] performed by HENNA GAMINO JR at [facility] OR ROS: Denies fever, chills, GARCIA, LOC, SOB, CP, NVD, abd pain, paresthesias, weakness in the extremities, swelling in the joints, h/o RA. No recent hospitalizations PHYSICAL EXAM: Mr. Brian cline 57 y.o. year old is alert and oriented. He appears in no acute discomfort and is resting comfortably in a chair in the exam room. Examination of bilateral stumps reveals very mild callus formation along the distal aspect. No evidence of breakdown. Surgical incisions healed well. No evidence of infection. No evidence of breakdown of the prosthetics. RADIOLOGICAL STUDIES: None taken today ASSESSMENT: 57 yo male with bilateral BKAs The patient was seen and the plan was formulated in conjunction with Dr. Montez. PLAN: Mr. Torres and I discussed his radiologic findings and physical exam findings. Pt is doing well regarding his bilateral BKA. Prosthetics are fitting well without evidence of breakdown. The pt is scheduled to f/u with his PCP next week for his diabetic management. Pt advised to monitor his BG levels daily. Pt can f/u with us on an as-needed basis. The patient understands to contact us if they have any other questions or concerns. DA GALLEGOS 05/04/2013 documented in this encounter Plan of Treatment Upcoming Encounters Date Type Specialty Care Team Description 05/26/2022 Office Visit Otolaryngology Ricardo Panda PA [facility] [address] [place] [address] (Wo rk) 06/02/2022 Infusion Hematology and Oncology 06/16/2022 Infusion Hematology and Oncology 06/21/2022 Office Visit Neurology Tyler Rojas MD [facility] Neurology [place], [place] [phone] (Wo rk) 06/30/2022 Infusion Hematology and Oncology 07/14/2022 Infusion Hematology and Oncology 07/28/2022 Infusion Hematology and Oncology 08/11/2022 Infusion Hematology and Oncology 11/04/2022 Office Visit Rheumatology Dante Freedman PA [facility] RHEUMATOLOGY [place], [place] [address] (Wo rk) documented as of this encounter Visit Diagnoses Diagnosis Amputee, below knee, L Lower limb amputation, below knee documented in this encounter Care Teams Supervisor [employer] Relationship Specialty Start Date End Date Dc Ibanez MD PCP - General 04/02/13 04/01/14 [address]NAMARIA [address] [address] documented as of this encounter
--- OUTSIDE RECORDS SUMMARY | 2022-05-24 10:58 | XMS_ITS | Encounter Summary ---
:1955 Author Organization [facility] [place] [address] Care Team Providers Name Role Phone Dc Ibanez MD Primary Care Provider Encounter Details Date Type Department Care Team Description 06/15/2013 Orders Only Solid Organ Transplant at Angel Evangelista MD [facility] Giovana tyler [place] [address] [place] [address] [phone] (Wo rk) Social History Tobacco Use Types [...] Ricardo Panda PA [facility] [place] [address] (Wo rk) 06/02/2022 Infusion Hematology and Oncology 06/16/2022 Infusion Hematology and Oncology 06/21/2022 Office Visit Neurology Tyler Rojas MD [facility] er [place]rology [place], [place] [phone] (Wo rk) 06/30/2022 Infusion Hematology and Oncology 07/14/2022 Infusion Hematology and Oncology 07/28/2022 Infusion Hematology and Oncology 08/11/2022 Infusion Hematology and Oncology 11/04/2022 Office Visit Rheumatology Dante Freedman PA [facility] ER RHEUMATOLOGY [place], [place] [address] (Wo rk) Pending Results Name Type Priority Associated Diagnoses Date/Ti id Film Library- Storage Imaging Routine 2012 11:01 PM EST only DX Chest documented as of this encounter Visit Diagnoses Not on filedocumented in this encounter Care Teams Mixing Place Supervisor Relationship Specialty Start Date End Date Dc Ibanez MD PCP - General 04/02/13 04/01/14 ANAMARIA [address] [place] [address] documented as of this encounter
--- OUTSIDE RECORDS SUMMARY | 2022-05-24 10:58 | XMS_ITS | Encounter Summary ---
:1955 Author Organization [facility] [place] [address] Care Team Providers Name Role Phone Dc Ibanez MD Primary Care Provider Reason for Visit Reason Comments Other Encounter Details Date Type Department Care Team Description 05/28/2013 Telephone Solid Organ Transplant at Tammy Angela I, [place] [address] [place] [address] [phone] Social History Tobacco Use Types Packs/Day Years [...] this encounter Miscellaneous Notes Telephone Encounter - Tammy Pardo I - 05/28/2013 11:13 AM EST Message copied by TAMMY PARDO I. on TueMay 28, 2013 11:13 AM ------ Message from: JENS SEWELL Created: TueMay 28, 2013 9:28 AM Contact: His pharmacy gave him generic Cellcept - mycophenylate and generic Prograf - tacrolimus. Is it okayto take? Please call. Thanks, Ama Patient was called and told that if he takes generic medications as above he will need weekly labs, and when he changes back he will need weekly labs for 4 weeks. Patient verbalized understanding and will get labs as noted and then hopes to be back to trade name next month also getting labs weekly. documented in this encounter Plan of Treatment Upcoming Encounters Date Type Specialty Care Team Description 05/26/2022 Office Visit Otolaryngology Ricardo Panda PA [facility] [address] [place], [place] [address] (Wo rk) 06/02/2022 Infusion Hematology and Oncology 06/16/2022 Infusion Hematology and Oncology 06/21/2022 Office Visit Neurology Tyler Rojas MD [facility] Neurology [place], [place] [phone] (Wo rk) 06/30/2022 Infusion Hematology and Oncology 07/14/2022 Infusion Hematology and Oncology 07/28/2022 Infusion Hematology and Oncology 08/11/2022 Infusion Hematology and Oncology 11/04/2022 Office Visit Rheumatology Dante Freedman PA [facility] RHEUMATOLOGY [place], [place] [address] (Wo rk) documented as of this encounter Visit Diagnoses Not on filedocumented in this encounter Care Teams Parts Sales Associate Relationship Specialty Start Date End Date Dc Ibanez MD PCP - General 04/02/13 04/01/14 [facility] [address] [place] [address] documented as of this encounter
--- OUTSIDE RECORDS SUMMARY | 2022-05-24 10:58 | XMS_ITS | Encounter Summary ---
:1955 Author Organization [facility] [place] [address] Care Team Providers Name Role Phone Dc Ibanez MD Primary Care Provider Encounter Details Date Type Department Care Team Description 05/24/2013 Telephone Endocrinology at [facility] C Nazia Bañuelos, [facility] [place] [address] Social History Tobacco Use Types Packs/Day [...] this encounter Miscellaneous Notes Telephone Encounter - Nazia Bañuelos RN - 05/30/2013 8:29 AM EST I called Dr. Coughlin's office; Rose Marie, clerk secretary, stated that nurses are not in today and . I read Dr. Hernandez's instructions, below, to her. She stated that she would give them to Dr. Ced dinero. Dr. Hernandez notified. Telephone Encounter - Donell Hernandez MD - 05/25/2013 4:42 PM EDT Mr Dodge is taking 70 units of NPH twice a day and 20 units of aspart with meals. He should not use th easpart and should reduce his NPH to 30 units twice a day during this prep Telephone Encounter - Nazia Bañuelos RN - 05/24/2013 3:14 PM EDT Letter received from Dr. Emmett Coughlin at [facility] re pt's upcoming colonoscopy: Mr. Torres will be scheduling a colo procedure on an upcoming Tue. He will need to be on a clear liquid diet for 2 days prior to his procedure and will be drinking a container of PEG solution each of those days. We need your guidance in altering his diabetic medications on those prep days and also need to know if this prep and procedure will alter his transplant medication dosing. Letter was addressed to Dr. Hernandez, Dr. Dc Ibanez, and Dr. Alejo Garnett. Dr. Hernandez notified. documented in this encounter Plan of Treatment Upcoming Encounters Date Type Specialty Care Team Description 05/26/2022 Office Visit Otolaryngology Ricardo Panda PA [facility] [address] [place] [address] (Wo gregg) 06/02/2022 Infusion Hematology and Oncology 06/16/2022 Infusion Hematology and Oncology 06/21/2022 Office Visit Neurology Tyler Rojas MD [facility] Neurology [place], [place] [phone] (Wo gregg) 06/30/2022 Infusion Hematology and Oncology 07/14/2022 Infusion Hematology and Oncology 07/28/2022 Infusion Hematology and Oncology 08/11/2022 Infusion Hematology and Oncology 11/04/2022 Office Visit Rheumatology Dante Freedman PA [facility] RHEUMATOLOGY [place], [place] [address] (Wo rk) documented as of this encounter Visit Diagnoses Not on filedocumented in this encounter Care Teams Skating Rink Ice Maker Relationship Specialty Start Date End Date Dc Ibanez MD PCP - General 04/02/13 04/01/14 [address] [address] [place] [address] documented as of this encounter
--- OUTSIDE RECORDS SUMMARY | 2022-05-24 10:58 | XMS_ITS | Encounter Summary ---
:1955 Author Organization [facility] [address] Care Team Providers Name Role Phone Dc Ibanez MD Primary Care Provider Reason for Visit Reason Onset Date Comments Advice Only 04/11/2013 Encounter Details Date Type Department Care Team Description 04/11/2013 Telephone Solid Organ Transplant at Syeda [place] [address] Social History Tobacco Use Types Packs/Day [...] this encounter Miscellaneous Notes Telephone Encounter - Trvais Arita, RN - 04/11/2013 3:48 PM EDT Message copied by TRAVIS ARITA on TueApr 11, 2013 3:48 PM ------ Message from: MELANI RUSH Created: TueApr 11, 2013 10:51 AM Please call his mom Brie [phone] Wants to further discuss from yesterday. He was put on what was requested but also put on Cethalexin 50 mg. Mom calls saying that the pharmacist is concerned as allergen to penicillin. Returned call to patient's mother to discuss above. She said that patient is allergic to penicillin and that his doctor prescribed keflex. She is unsure if he should take this for his pneumonia. He wasalso given Cipro. In discussion with Dr. Garnett the patient should not take the keflex if he is allergic. He recommendation was to try the Cipro for a week and if still not well then change to a Zpak. This information was given to patient's mother. They are following up with the PCP on Tuesday. I suggested that they call with any other questions or concerns and the PCP is welcome to call as well. She is in agreement with the plan. documented in this encounter Plan of Treatment Upcoming Encounters Date Type Specialty Care Team Description 05/26/2022 Office Visit Otolaryngology Ricardo Panda PA [facility] Dr [place], [place] [address] (Wo rk) 06/02/2022 Infusion Hematology and Oncology 06/16/2022 Infusion Hematology and Oncology 06/21/2022 Office Visit Neurology Tyler Rojas MD [facility] Neurology [place], [place] [phone] (Wo rk) 06/30/2022 Infusion Hematology and Oncology 07/14/2022 Infusion Hematology and Oncology 07/28/2022 Infusion Hematology and Oncology 08/11/2022 Infusion Hematology and Oncology 11/04/2022 Office Visit Rheumatology Dante Freedman PA [facility] RHEUMATOLOGY [place], [place] [address] (Wo rk) documented as of this encounter Visit Diagnoses Not on filedocumented in this encounter Care Teams Belt Sander Relationship Specialty Start Date End Date Dc Ibanez MD PCP - General 04/02/13 04/01/14 [facility] [place] [address] [place] [address] documented as of this encounter
--- OUTSIDE RECORDS SUMMARY | 2022-05-24 10:58 | XMS_ITS | Encounter Summary ---
:1955 Author Organization [facility] [place] [address] Care Team Providers Name Role Phone Dc Ibanez MD Primary Care Provider Encounter Details Date Type Department Care Team Description 05/24/2013 Notes Only Solid Organ Transplant at Angel Angela I, [place] [address] [place] [phone] Social History Tobacco Use Types Packs/Day Years [...] as of this encounter Progress Notes Angel Bradford I - 05/24/2013 2:50 PM EDT Received requested to help with treatment plan for a colonoscopy procedure, i.e. Prep given the patient is a kidney transplant recipient. Dr. Garnett recommends clear sports drinks, such as proprel zero for electrolytes at least 2/3 his liquid intake. Medications should be taken as normal. As for diabetic management Dr. Garnett defers to Dr. Hernandez. documented in this encounter Plan of Treatment Upcoming Encounters Date Type Specialty Care Team Description 05/26/2022 Office Visit Otolaryngology Ricardo Panda PA [facility] Dr [place], [place] [address] (Wo rk) 06/02/2022 Infusion Hematology and Oncology 06/16/2022 Infusion Hematology and Oncology 06/21/2022 Office Visit Neurology Tyler Rojas MD [facility] Neurology [place], [place] [phone] (Wo rk) 06/30/2022 Infusion Hematology and Oncology 07/14/2022 Infusion Hematology and Oncology 07/28/2022 Infusion Hematology and Oncology 08/11/2022 Infusion Hematology and Oncology 11/04/2022 Office Visit Rheumatology Dante Freedman PA [facility] RHEUMATOLOGY [place], [place] [address] (Wo rk) documented as of this encounter Visit Diagnoses Not on filedocumented in this encounter Care Teams Produce Buyer Relationship Specialty Start Date End Date Dc Ibanez MD PCP - General 04/02/13 04/01/14 [facility] [address] [place] [address] documented as of this encounter
--- OUTSIDE RECORDS SUMMARY | 2022-05-24 10:58 | XMS_ITS | Encounter Summary ---
:1955 Author Organization [facility] [place] [address] Care Team Providers Name Role Phone Dc Ibanez MD Primary Care Provider Reason for Visit Reason Comments Other Encounter Details Date Type Department Care Team Description 05/30/2013 Telephone Solid Organ Transplant at Tammy Angela I, [place] [address] [place] [address] [phone] Social History Tobacco Use Types Packs/Day Years [...] Telephone Encounter - Tammy Pardo I - 05/30/2013 12:10 PM EST Message copied by TAMMY PARDO I. on TueMay 30, 2013 12:10 PM ------ Message from: JENS SEWELL Created: TueMay 28, 2013 9:28 AM Contact: His pharmacy gave him generic Cellcept - mycophenylate and generic Prograf - tacrolimus. Is it okayto take? Please call. Thanks, Ama Received call from pharmacy medication is being changed back to brand name so no action needed documented in this encounter Plan of Treatment Upcoming Encounters Date Type Specialty Care Team Description 05/26/2022 Office Visit Otolaryngology Ricardo Panda PA [facility] Dr [place], [place] [address] (Wo rk) 06/02/2022 Infusion Hematology and Oncology 06/16/2022 Infusion Hematology and Oncology 06/21/2022 Office Visit Neurology Tyler Rojas MD [facility] Neurology [place], [place] [phone] (Wo rk) 06/30/2022 Infusion Hematology and Oncology 07/14/2022 Infusion Hematology and Oncology 07/28/2022 Infusion Hematology and Oncology 08/11/2022 Infusion Hematology and Oncology 11/04/2022 Office Visit Rheumatology Dante Freedman PA [facility] RHEUMATOLOGY [place], [place] [address] (Wo rk) documented as of this encounter Visit Diagnoses Not on filedocumented in this encounter Care Teams Bander Hand Relationship Specialty Start Date End Date Dc Ibanez MD PCP - General 04/02/13 04/01/14 [facility] [address] [place] [address] documented as of this encounter
--- OUTSIDE RECORDS SUMMARY | 2022-05-24 10:59 | XMS_ITS | Encounter Summary ---
:1955 Author Organization [facility] [place] [address] Care Team Providers Name Role Phone Candido Jenkins MD Primary Care Provider Reason for Visit Reason Comments Wound Check s/p Right BKA Dos 06/21/11 Encounter Details Date Type Department Care Team Description 02/01/2012 Follow-Up Orthopaedics at [facility], DR FOSTER Delayed wound healing; [facility] D rive S/P BKA (below knee amputati on) - right lower extremity; [place] [address] Charcot's arthropathy, diabe tic, R; [phone] Diabetes mell us with neuropathy Social History Tobacco Use Types Packs/Day Years Used Date Former Smoker Cigarettes 2 20 Quit: 01/19/19 93 Smokeless Tobacco: Never Used Alcohol Use Standard Drinks/Week Comments No 0 (1 standard drink = 0.6 oz pure alcoho l) Sex Assigned at Date Recorded Not on file documented as of this encounter Progress Notes Lizzy Pennington RN - 02/01/2012 10:59 AM EDT EXTREMITY TEAM NURSE VISIT Case Date: 06/21/2011 Surgeon:HENNA ROY JR, MD - Procedure(s): AMPUTATION, BELOW-KNEE Subjective: I think things are doing better all the way around. Objective: Patient arrived to clinic wearing his left leg prosthesis and a dressing and compression sleeve on the right. His incision is generally well approximated. There remain 3 open sites. Laterally he has a 10x 8 x 3mm wound with 20% thin loosely adherent slough layer that has a bright granulation bed and good bleeding after debridement. Centromedially there is a 5 x 5 x 4mm wound with 100% granulation base.The most medial measures 7 x 6 x 4mm. Both of these wounds are clean and moist. All of the periwound skin is soft. Drainage has been scant and clear. Stump is taking nice shape. He is wearing compression daily. He spends the preponderance of every day with the leg dependent, on nice days he is out on the 4 lawson fore 4-5 hours at a time. He is and has been afebrile. He had his HbA1c done 11-08-2011 and it was 8.5 this represents an increase. Daily his blood sugars have been > 86 and <200. He reports most readings between 140 and 160. Although high this is an improvement. Procedure: The incision was washed with Hibiclenz, rinsed with nss and dried. All slough was sharplydebrided with sterile scissor, forceps and #15 blade. The wounds were then painted with NORMOGEL Ag and covered with a dsd then a compressogrip was applied to the stump. Plan: Dressing changes as above. Patient and caregivers were reminded to really scrub the most medial sites rigorously to help debride the wound beds. His mother does the dressings and assess wound healing. She was able to verbalize s/s to report. Patient to continue working with his out patient PT/OTfor strengthening. VNA is seeing the patient weekly- family is able to perform dressing changes and recognize wound problems. He will call with any change in his incision, fever, chills, malaise or concerns about his stump. Supplies given: None Dr. Roy supervised this visit documented in this encounter Plan of Treatment Upcoming Encounters Date Type Specialty Care Team Description 05/26/2022 Office Visit Otolaryngology Ricardo Panda PA [facility] [address] [place] [address] (Wo rk) 06/02/2022 Infusion Hematology and Oncology 06/16/2022 Infusion Hematology and Oncology 06/21/2022 Office Visit Neurology Tyler Rojas MD [facility] [place] [phone] (Wo rk) 06/30/2022 Infusion Hematology and Oncology 07/14/2022 Infusion Hematology and Oncology 07/28/2022 Infusion Hematology and Oncology 08/11/2022 Infusion Hematology and Oncology 11/04/2022 Office Visit Rheumatology Dante Freedman PA [facility] RHEUMATOLOGY [place], [place] [address] (Wo rk) documented as of this encounter Visit Diagnoses Diagnosis Delayed wound healing Open wound(s) (multiple) of unspecified site(s), complicated S/P BKA (below knee amputation) - right lower extremity Lower limb amputation, below knee Charcot's arthropathy, diabetic, R 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
--- OUTSIDE RECORDS SUMMARY | 2022-05-24 10:59 | XMS_ITS | Encounter Summary ---
:1955 Author Organization [facility] [place] [address] Care Team Providers Name Role Phone Candido Jenkins MD Primary Care Provider Reason for Visit Reason Onset Date Comments Results 03/09/2012 Encounter Details Date Type Department Care Team Description 03/09/2012 Telephone Solid Organ Transpla nt at [facility] [place] [address] Social History Tobacco Use Types Packs/Day Years Used Date Former Smoker Cigarettes 2 20 Quit: 01/19/19 93 Smokeless Tobacco: Never Used Alcohol Use Standard Drinks/Week Comments No 0 (1 standard drink = 0.6 oz pure alcoho l) Sex Assigned at Date Recorded Not on file documented as of this encounter Miscellaneous Notes Telephone Encounter - Lauren Goodman, RN - 03/09/2012 11:44 AM EDT Message copied by LAUREN GOODMAN on TueMar 09, 2012 11:44 AM ------ Message from: KAREN CHINO Created: TueMar 09, 2012 11:01 AM Ramos Aguilar, Can you please let Mr. Torres know that his Vit D studies have come back and indicate that he is Vit D deficient. I would like him to start taking Vit D3 2000 IU once daily. He should have a re-check of his Vit D studies and PTH level in 6 months. Thank you, Karen 03/09/12 @ 11:40 A.M. community service coordinator note: Received above message from Karen Chino APRN. Intervention: Mailed patient a copy of the Vitamin D letter along with a lab slip to have his PTH and Vitamin D studies repeated in August,. See copy of letter below: Dear Mr. Torres: Per request Karen Chino APRN, I am writing with regards to the results of your post-transplant lab work that you had done on 02/23/12. Your results show that your vitamin D level is low. To help raiseyour vitamin D level, we recommend that you take Vitamin D3, 2,000 IU once daily. This is available over the counter and can be found at most pharmacies. Included with this letter is a lab order for a repeat Vitamin D blood test, and Parathyroid Hormone blood test. You can take this lab order to your local lab, and this test should be done in 6 months. You can have this testing done at the same time you go to have your transplant blood-work done. Please continue to have your routine, post-transplant lab work done as recommended by the transplant team. We will contact you if any further adjustments need to be made. If you have any questions, please contact the transplant team at . Sincerely, Lauren Goodman datastage developer coordinatore Solid Organ Transplant Surgery documented in this encounter Plan of Treatment Upcoming Encounters Date Type Specialty Care Team Description 05/26/2022 Office Visit Otolaryngology Ricardo Panda PA [facility] [address] [place] [address] (Oscar escobedo) 06/02/2022 Infusion Hematology and Oncology 06/16/2022 Infusion Hematology and Oncology 06/21/2022 Office Visit Neurology Tyler Rojas MD [facility] Dr [address] [place] [phone] (Wo gregg) 06/30/2022 Infusion Hematology and Oncology 07/14/2022 Infusion Hematology and Oncology 07/28/2022 Infusion Hematology and Oncology 08/11/2022 Infusion Hematology and Oncology 11/04/2022 Office Visit Rheumatology Dante Freedman PA [facility] RHEUMATOLOGY [place], [place] [address] (Wo rk) documented as of this encounter Visit Diagnoses Not on filedocumented in this encounter Care Teams Artificial Marble Worker Relationship Specialty Start Date End Date Candido Jenknis MD PCP - General 05/20/11 04/01/13 [address] [place] [address] documented as of this encounter
--- OUTSIDE RECORDS SUMMARY | 2022-05-24 10:59 | XMS_ITS | Encounter Summary ---
:1955 Author Organization [facility] [address] Care Team Providers Name Role Phone Candido Jenkins MD Primary Care Provider Encounter Details Date Type Department Care Team Description 03/23/2013 Telephone Orthopaedics at [facility] Narayan Roy Jr., MD [facility] [place] [address] ORTHOPAEDIC SURGERY [phone] [place], [place] [address] (Wo rk) Social History Tobacco [...] this encounter Miscellaneous Notes Telephone Encounter - Lizbeth Montana - 03/23/2013 4:01 PM EDT Amanda called from [facility] called and stated that they need Dr. Roy to complete two sections on the Letter of Medical Necessity. I have sent down to see if he can complete via fax to [phone]. documented in this encounter Plan of Treatment Upcoming Encounters Date Type Specialty Care Team Description 05/26/2022 Office Visit Otolaryngology Ricardo Panda PA [facility] [place], [place] [address] (Wo rk) 06/02/2022 Infusion Hematology and Oncology 06/16/2022 Infusion Hematology and Oncology 06/21/2022 Office Visit Neurology Tyler Rojas MD [facility] Neurology [place], [place] [phone] (Wo rk) 06/30/2022 Infusion Hematology and Oncology 07/14/2022 Infusion Hematology and Oncology 07/28/2022 Infusion Hematology and Oncology 08/11/2022 Infusion Hematology and Oncology 11/04/2022 Office Visit Rheumatology Dante Freedman PA [facility] RHEUMATOLOGY [place], [place] [address] (Wo rk) documented as of this encounter Visit Diagnoses Not on filedocumented in this encounter Care Teams Clinical Nurse Leader Relationship Specialty Start Date End Date Candido Jenkins MD PCP - General 05/20/11 04/01/13 [address] [place] [address] documented as of this encounter
--- OUTSIDE RECORDS SUMMARY | 2022-05-24 10:59 | XMS_ITS | Encounter Summary ---
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 Type II or unspecified type diabetes mellitus with renal manifestations, uncontrolled; [place] [address] Hypertension; [phone] ENDOCRINOLOGY Nasal sinus co ngestion; DEPT. Diabetes mellitus; [place], [place] [address] Renal transplant disorder; [phone] S/P BKA (below knee amputation) (Work) Social History Tobacco Use Types Packs/Day Years [...] Sign Reading Time Taken Comments Blood Pressure 139/63 11/29/2012 1:35 PM EDT Pulse 75 11/29/2012 1:35 PM EDT Temperature - - Respiratory Rate - - Oxygen Saturation - - Inhaled Oxygen - - Concentration Weight 150.3 kg (331 lb 6.4 11/29/2012 1:35 2 prostheti c legs oz) PM EDT weigh about 20lb s total Height - - Body Mass Index 40.34 06/28/2012 10:10 AM EST documented in this encounter Patient Instructions Patient InstructionsDonell Hernandez MD - 11/29/2012 8:44 PM EDT I will write with labs documented in this encounter Progress Notes Donell Hernandez MD - 11/29/2012 1:31 PM EDT Year of diagnosis: Regimen ____ [...] retinopathy that has been treated. Bilateral bka with poor stump healing on R and morbid obesity. When I last saw Mr Torres I started liraglutide to see if we could prevent further weight gain and restore deteriorating diabetes control On liraglutide for 5 months and he says it has improved his glucose and he believes he has lost weight. It has curbed his eating. Plans to restore david jeffery. Regimen Victoza 1.8 daily Basal NPH 70 bid Bolus regular 70 bid hbgm Often under 200 Hypo none Diet B 2 donuts Sn L Spaghetti meatballs Sn D Macaroni salad Sn chips Exercise second prosthesis 2 h a day, goes to PT 2x a week complications Eyes prior laser therapy Feet Bilateral BKA, working on second prosthesis Kidneys transplant autonomic: no gastroparesis bladder hypo unaware tachycardia cardiac no chest pain on exertion No shortness of breath at rest No history of stent cabg chf prevention: last eye exam:2011 last microalbumin :2011 last Cr:today last lipid panel:2011 regular audio/visual operator:no special shoes:no flu shot :yes pneumovax: 2011 acei yes Asa Yes statin yes Vitals 11/29/2012 08/29/2012 BP 139/63 140/66 BP Location Patient Position Pulse 75 76 Temp Temp src Resp Height to cm. Height in inches Weight (Greek) 331 lbs 6 oz 334 lbs Weight (Metric) 150.3 kg 151.5 kg Looks well His weight is difficult to assess - different prostheses Eyes: old retinopathy seen., otherwise clear Recent Results (from the past 24 hour(s)) HEMOGLOBIN A1C Component Value Range Hemoglobin A1C 6.8 (*) 4.3 - 6.1 % Est Avg Gluc 148 CREATININE, SERUM Component Value Range Creatinine 1.76 (*) 0.80 - 1.50 mg/dL Estimated GFR 40 (*) >=60 Ref. Range 03/17/2012 08:06 06/28/2012 08:49 08/29/2012 10:49 11/29/2012 11:18 Creatinine Latest Range: 0.80-1.50 mg/dL 1.83 (H) 1.90 (H) 1.62 (H) 1.76 (H) Estimated GFR Latest Range: >=60 38 (L) 36 (L) 44 (L) 40 (L) Hemoglobin A1C Latest Range: 4.3-6.1 % 8.0 (H) 8.4 (H) 7.7 (H) 6.8 (H) Est Avg Gluc No range found 183 194 174 148 1) DM2 - his blood sugar control has steadily improved since his second amputation but he is now losing 10 units ess insulin per injection , which makes me think this latest improvement is dude to liraglutide. 2) renal transplant/ckd - his creatinine has been stable for the year and may improve with weight loss 3) bilateral bka - he is walking with a cane and has a good attitude at this time 4) prevention - up to date on vaccines and cardioprotection documented in this encounter Plan of Treatment Upcoming Encounters Date Type Specialty Care Team Description 05/26/2022 Office Visit Otolaryngology Ricardo Panda PA [facility] [address] [place] [address] (Wo rk) 06/02/2022 Infusion Hematology and Oncology 06/16/2022 Infusion Hematology and Oncology 06/21/2022 Office Visit Neurology Tyler Rojas MD [facility] Neurology [place], [place] [phone] (Wo rk) 06/30/2022 Infusion Hematology and Oncology 07/14/2022 Infusion Hematology and Oncology 07/28/2022 Infusion Hematology and Oncology 08/11/2022 Infusion Hematology and Oncology 11/04/2022 Office Visit Rheumatology Dante Freedman PA [facility] [place] [address] (Wo rk) documented as of this encounter Procedures Procedure Name Priority Date/Time Associated Diagnosis Comme nts CREATININE STAT 11/29/2012 11:18 AM Hypertension Results for this EDT procedure are i n the results section. HEMOGLOBIN A1C STAT 11/29/2012 11:18 AM Type II or unspecif ied Results for this EDT type diabetes mellitus proce dure are in with neurological the result s manifestations, section. uncontrolled Type II or unspecified type diabetes mellitus with ophthalmic manifestations, uncontrolled Type II or unspecified type diabetes mellitus with renal manifestations, uncontrolled documented in this encounter Results (ABNORMAL) Hemoglobin A1c (08/06/2013 12:52 PM EST) Analysis Performed At [facility] Time Signature Hemoglobin A1C 7.5 (H) <=5.6 % [facility] Comment: As of 2013 the methodology [...] 36: Suppl. 1, S67-74 Est Avg Gluc 169 mg/dL [facility] Comment: eAG equivalents for HbA1c percentages: HbA1c(%) ?eAG(mg/dL) 6.0 ?126 6.5 ?140 7.0 ?154 7.5 ?169 8.0 ?183 8.5 ?197 9.0 ?212 9.5 ?226 10.0 ? 240 Limitations: The eAG calculation has not been validated on women, individuals below 18 years old and above 70 years old, and individuals with hemoglobinopathies. Additional resources are available on [facility] ADA website: ??http://professional.diabetes.org/gluc osecalculator.aspx Scooby MALDONADO, Nba Gilbert, Sydnee R, et al. ??Tr anslating the A1C assay into estimated average glucose values. ??Diabetes Care 2008:31(8):0048-8313. Specimen Anatomical Collection Method Collection Time Receive d Time (Source) Location / / Volume Laterality Blood specimen 08/06/2013 12:52 4 1:02 (specimen) PM EST PM EST Resulting Agency Comment Spec In Lab Donell Hernandez MD CHEMISTRY ORDERABLES Performing Organization Address City/Special Care Hospital/[place] [address] [facility] T[facility] (04/02/2013 10:20 AM EDT) P athologist Signature TSH 1.62 0.27 - 4.20 CERNER mcIU/mL [facility] Specimen Anatomical Collection Method Collection Time Receive d Time (Source) Location / / Volume Laterality Blood specimen 04/02/2013 10:20 3 (specimen) AM EDT 10:25 AM EDT Resulting Agency Comment Spec In Lab Donell Hernandez MD CHEMISTRY ORDERABLES Performing Organization Address City/[facility] Care [facility]/ZIP Code Phon e Number [address] [facility] LDL Cholesterol, Direct (04/02/2013 10:20 AM EDT) P athologist Signature LDL Chol 61 <=99 mg/dL CERNER Direct [facility] Comment: The National Cholesterol Education Progr am (NCEP) has set the following guidelines for LDL Cholesterol: Reference range: ?? Optimal: ?<100 mg/dL ?? Near Optimal/Above Optimal: ?? 100-1 29 mg/dL ?? Borderline high: ?130-159 mg/dL ?? High: ? 160-189 mg/dL ?? Very high: ?>ir=601 mg/dL SERENA 2001: 285(19):9542-1305 Specimen Anatomical Collection Method Collection Time Receive d Time (Source) Location / / Volume Laterality Blood specimen 04/02/2013 10:20 3 (specimen) AM EDT 10:25 AM EDT Resulting Agency Comment Spec In Lab Donell Hernandez MD CHEMISTRY ORDERABLES Performing Organization Address City/[facility] Care [facility]/ZIP Code Phon e Number [address] CERNER [facility] (ABNORMAL) Creatinine (04/02/2013 10:20 AM EDT) athologist Signature Creatinine 1.55 (H) 0.80 - CERNER 1.50 mg/dL [facility] Comment: Please note that the pediatric reference intervals supplied above were not validated at [facility] [place]. Results from pediatri c [...] Location / / Volume Laterality Blood specimen 04/02/2013 10:20 3 (specimen) AM EDT 10:25 AM EDT Resulting Agency Comment Spec In Lab Donell Hernandez MD CHEMISTRY ORDERABLES Performing Organization Address City/[facility] Care [facility]/ZIP Code Phon e Number [address] CERNER [facility] (ABNORMAL) Creatinine, serum (11/29/2012 11:18 AM EDT) athologist Signature Creatinine 1.76 (H) 0.80 - CERNER 1.50 mg/dL [facility] Comment: Please note that the pediatric reference intervals supplied above were not validated at [facility]. Results from pediatri c patients should be interpreted in conjunction to the patient's age, height and muscle mass. Estimated GFR 40 (L) >=60 HOLLI Ramirez Comment: This estimated [...] the following links into your internet browser. http://www.Medcurrentdep.nih.gov/lab-evaluation. shtml http://www.kidney.org/professionals/ Specimen Anatomical Collection Method Collection Time Receive d Time (Source) Location / / Volume Laterality Blood specimen 11/29/2012 11:18 3 (specimen) AM EDT 11:39 AM EDT Resulting Agency Comment Spec In Lab Donell Hernandez MD CHEMISTRY ORDERABLES Performing Organization Address City/State/[place] [address] HOLLI MÉNDEZ (ABNORMAL) Hemoglobin A1c (11/29/2012 11:18 AM EDT) Analysis Performed At [facility] Time Signature Hemoglobin A1C 6.8 (H) 4.3 - 6.1 CERNER % [facility] Comment: The [place] Diabetes Association (ADA) has stated that HbA1c values >or= 6.5% are consistent with the diagnosis of emmanuelle betes mellitus. In the absence of hyperglycemia (i.e. plasma glucose > 200 mg/dL) or classic symptoms of hyperglycemia a repeat measurement of Hb A1c should be performed on a separate sample to confirm the diagnosis. The ADA also considers an HbA1c value be tween 5.7% and 6.4% to be consistent with an increased risk of diabetes (pred iabetes). Patients with an HbA1c value in this range should be counseled about their increased risk of progressing to diabetes. Reference: Position Statement: Standards of Medical Care in Diabetes 2013. Diabetes Care 2013:36;suppl 1:S11 -S66. Est Avg Gluc 148 mg/dL [facility] Comment: eAG equivalents for HbA1c percentages: HbA1c(%) ?eAG(mg/dL) 6.0 ?126 6.5 ?140 7.0 ?154 7.5 ?169 8.0 ?183 8.5 ?197 9.0 ?212 9.5 ?226 10.0 ? 240 Limitations: The eAG calculation has not been validated on women, individuals below 18 years old and above 70 years old, and individuals with hemoglobinopathies. Additional resources are available on [facility] ADA website: ??http://professional.diabetes.org/gluc osecalculator.aspx Scooby MALDONADO, Nba J, Sydnee R, et al. ??Tr anslating the A1C assay into estimated average glucose values. ??Diabetes Care 2008:31(8):9901-7210. Specimen Anatomical Collection Method Collection Time Receive d Time (Source) Location / / Volume Laterality Blood specimen 11/29/2012 11:18 3 (specimen) AM EDT 11:39 AM EDT Resulting Agency Comment Spec In Lab Donell Hernandez MD CHEMISTRY ORDERABLES Performing Organization Address City/State/ZIP Code Phon e Number [place] [id number] [facility] documented in this encounter Visit Diagnoses Diagnosis Type II or unspecified type diabetes fredo litus with neurological manifestations, uncontrolled(250.62) - Primary Type II or unspecified type diabetes fredo litus with neurological manifestations, uncontrolled Type II or unspecified type diabetes fredo litus with ophthalmic manifestations, uncontrolled(250.52) Type II or unspecified type diabetes fredo litus with ophthalmic manifestations, uncontrolled Type II or unspecified type diabetes fredo litus with renal manifestations, uncontrolled(250.42) Type II or unspecified type diabetes fredo litus with renal manifestations, uncontrolled Hypertension Unspecified essential hypertension Nasal sinus congestion Other diseases of nasal cavity and sinus es Diabetes mellitus Type II or unspecified type diabetes fredo litus without mention of complication, not stated as uncontrolled Renal transplant disorder Complications of transplanted kidney S/P BKA (below knee amputation) Lower limb amputation, below knee documented in this encounter Care Teams Health And Safety Director Relationship Specialty Start Date End Date Candido Jenkins MD PCP - General 05/20/11 04/01/13 [address] [place] [address] documented as of this encounter
--- OUTSIDE RECORDS SUMMARY | 2022-05-24 10:59 | XMS_ITS | Encounter Summary ---
:1955 Author Organization [facility] Address [address] [place] [address] Care Team Providers Name Role Phone Candido Jenkins MD Primary Care Provider Encounter Details Date Type Department Care Team Description 06/28/2012 Office Visit Endocrinology at [facility] C Donell Hernandez, Diabetes mellitus (Primary D x); [facility] MD MALDONADO eye manif type II, uncontrolled; [facility] History of renal transplant; [place] [address] Immunocompromised; [phone] ENDOCRINOLOGY S/P bilateral BKA (below knee amputation); DEPT. Morbid obesity; [place], [place] [address] Weight gain Social History Tobacco Use Types Packs/Day Years [...] Sign Reading Time Taken Comments Blood Pressure 125/60 06/28/2012 10:10 AM EST Pulse 61 06/28/2012 10:10 AM EST Temperature - - Respiratory Rate 16 06/28/2012 10:10 AM EST Oxygen Saturation - - Inhaled Oxygen Concentration - - Weight 151.5 kg (334 lb) 06/28/2012 10:10 AM EST Height 193 cm (6' 4) 06/28/2012 10:10 AM EST Body Mass Index 40.66 06/28/2012 10:10 AM EST documented in this encounter Patient Instructions Patient InstructionsDonell Hernandez MD - 06/28/2012 10:48 AM EST Recent Results (from the past 24 hour(s)) CREATININE, SERUM Component Value Range Creatinine 1.90 (*) 0.80 - 1.50 (mg/dL) Estimated GFR 36 (*) >=60 HEMOGLOBIN A1C Component Value Range Hemoglobin A1C 8.4 (*) 4.3 - 6.1 (%) Est Avg Gluc 194 LDL CHOLESTEROL, DIRECT Component Value Range LDL Chol Direct 67 <=99 (mg/dL) I recommended liraglutide to help with weight loss and diabetes Liraglutide is called victoza To use victoza: Start with 0.6 mg dose (one click) injection a day If no nausea after one week Increase to the second click 1.2 mg If no nausea for another week Increase to full dose - 1.8 mg a day When using victoza Decrease the dose of regular insulin to 60 twice a day Decrease the NPH dose to 60 units twice a day Check the blood sugar twice a day If both levels are under 150 for two days in row, decrease the R again to 50 units twice a day documented in this encounter Progress Notes Donell Hernandez MD - 06/28/2012 10:33 AM EST We are consulted by Dr Jenkins to evaluate and treat Type 2 diabetes with renal transplant, recent R leg BKA following past L leg BKA, complicated by morbid obesity Second amputation Jun 21 2011, new leg today Still has two sores at amputation site Concerned that he is gaining weight Regimen Oral Basal NPH 70 bid Bolus regular 80 bid hbgm 170-230 Bid to tid Hypo none Diet B 2 donuts Sn Crackers cheese L Two slices of bread Sn donut D Potato 2 slices meat loaf Sn Exercise None, getting second prosthesis this week and will begin PT to walk again complications eyes prior laser therapy feet Bilateral BKA kidneys transplant autonomic: no gastroparesis bladder hypo unaware tachycardia cardiac no chest pain on exertion No shortness of breath at rest No history of stent cabg chf prevention: last eye exam:2011 last microalbumin :2011 last Cr:today last lipid panel:2011 regular special education paraeducator:no special shoes:no flu shot :yes pneumovax: 2012 acei yes Asa Yes statin yes Vitals 06/28/2012 04/19/2012 SYSTOLIC 151 131 DIASTOLIC 67 56 PULSE 61 62 RESPIRATIONS 16 HEIGHT 76 in 76 in WEIGHT 334 lbs 310 lbs BODY MASS INDEX 40.67 kg/m2 37.75 kg/m2 appearance: wt Change eyes: no retinopathy seen by green light ext: no pitting edema feet: shape is normal skin is normal nails are not mycotic pulses in feet : dorsalis pedis-yes posterior tibial-yes neuro: gait is normal appreciation of 10 g of pressure is present Recent Results (from the past 24 hour(s)) CREATININE, SERUM Component Value Range Creatinine 1.90 (*) 0.80 - 1.50 (mg/dL) Estimated GFR 36 (*) >=60 HEMOGLOBIN A1C Component Value Range Hemoglobin A1C 8.4 (*) 4.3 - 6.1 (%) Est Avg Gluc 194 LDL CHOLESTEROL, DIRECT Component Value Range LDL Chol Direct 67 <=99 (mg/dL) Results for LEROY TORRES ( ) as of 06/28/2012 10:33 Ref. Range 02/17/2011 11:36 06/04/2011 13:16 02/23/2012 09:53 03/17/2012 08:06 06/28/2012 08:49 Hemoglobin A1C Latest Range: 4.3-6.1 % 8.5 (H) 7.5 (H) 8.1 (H) 8.0 (H) 8.4 (H) Results for LEROY TORRES ( ) as of 06/28/2012 10:33 Ref. Range 06/24/2011 04:18 06/24/2011 04:18 02/23/2012 09:53 03/17/2012 08:06 06/28/2012 08:49 Creatinine Latest Range: 0.80-1.50 mg/dL 2.02 (H) 2.02 (H) 1.86 (H) 1.83 (H) 1.90 (H) PROBLEMS: 1. Type 2 diabetes-Mr. Torres still has poor diabetes control in the context of renal transplant that has some compromise in its function as well as poor healing of his right leg stump and a history of significant retinopathy. I think the goal for him should be to have a hemoglobin A1c between 7.5 and 8.5 and also to not continue to gain weight. He has gained 23 pounds over the last four months. I recommended to him that we start the medication of liraglutide and reduce his insulin doses by about 30%. I am hoping with this, we will see improved diabetes control with a hemoglobin A1c less than 8%. At the same time, a weight reduction of at least 10 pounds. 2. Morbid obesity-Mr. Torres has morbid obesity. He has been gaining weight rapidly. At the same time, he is about to trial a second lwzlf-reb-nyls prosthesis and trying learn to ambulate with this. I think it is important that he not gain any more weight and actually reduce the weight since he is approaching the weight tolerance for these prostheses. Therefore, I have started him on liraglutide to try and lower his weight while maintaining good diabetes control. 3. Renal transplant-the kidney function is stable over the past year, but shows a reduction in kidney function which we would like to stabilize at this point. The better diabetes control will be important over the long whole. 4. Prevention-he is up-to-date on his immunizations. We will see him again in one month. This was a 45-minute visit and I spent 30 minutes of the visit going over the justification and rationalization for liraglutide and also how to use and escalate the dose as well as modify his insulin regimen. I also wrote out these instructions for him. documented in this encounter Plan of Treatment Upcoming Encounters Date Type Specialty Care Team Description 05/26/2022 Office Visit Otolaryngology Ricardo Panda PA [facility] Cent [place] [address] (Wo rk) 06/02/2022 Infusion Hematology and Oncology 06/16/2022 Infusion Hematology and Oncology 06/21/2022 Office Visit Neurology Tyler Rojas MD [facility] Dr [address] [place] [address]22 (Wo rk) 06/30/2022 Infusion Hematology and Oncology 07/14/2022 Infusion Hematology and Oncology 07/28/2022 Infusion Hematology and Oncology 08/11/2022 Infusion Hematology and Oncology 11/04/2022 Office Visit Rheumatology Dante Freedman PA [facility]HE[facility] [place], [place] [address] (Oscar rk) documented as of this encounter Procedures Procedure Name Priority Date/Time Associated Comments Diagnosis CREATININE Routine 06/28/2012 8:49 AM Diabetes mellitus Resu lts for this EST procedure are i n the results section. LDL CHOLESTEROL, Routine 06/28/2012 8:49 AM Diabetes mellitus Results for this DIRECT EST procedure are i n the results section. HEMOGLOBIN A1C Routine 06/28/2012 8:49 AM Diabetes mellitus Re sults for this EST procedure are i n the results section. documented in this encounter Results (ABNORMAL) Hemoglobin A1c (08/29/2012 10:49 AM EST) Analysis Performed At [facility] Time Signature Hemoglobin A1C 7.7 (H) 4.3 - 6.1 CERNER % MILLENNIUM Est Avg Gluc 174 mg/dL CERNER MILLENNIUM Comment: eAG equivalents for HbA1c percentages: HbA1c(%) ?eAG(mg/dL) 6.0 ?126 6.5 ?140 7.0 ?154 7.5 ?169 8.0 ?183 8.5 ?197 9.0 ?212 9.5 ?226 10.0 ? 240 Limitations: The eAG calculation has not been validated on women, individuals below 18 years old and above 70 years old, and individuals with hemoglobinopathies. Additional resources are available on ADA website: ??http://professional.diabetes.org/gluc osecalculator.aspx Reference: Scooby MALDONADO, Nba J, Sydnee R, et al. ??Tr anslating the A1C assay into estimated average glucose values. ??Diabetes Care 2008:31(8):7037-3894. Specimen Anatomical Collection Method Collection Time Receive d Time (Source) Location / / Volume Laterality Blood specimen 08/29/2012 10:49 3 (specimen) AM EST 10:55 AM EST Resulting Agency Comment Spec In Lab Donell Hernandez MD CHEMISTRY ORDERABLES Performing Organization Address City/State/Z[place] [address] CERNER MILLENNIUM (ABNORMAL) Creatinine, serum (08/29/2012 10:49 AM EST) athologist Signature Creatinine 1.62 (H) 0.80 - CERNER 1.50 mg/dL MILLENNIUM Comment: Please note that the pediatric reference intervals supplied above were not validated at [facility]. Results from pediatri c patients should be interpreted in conjunction to the patient's age, height and muscle mass. Estimated GFR 44 (L) >=60 HOLLI Ramirez Comment: The National Kidney Disease Education Pr ogram (NKDEP) has recommended all laboratories report estimated GFR (eGFR) along with plasma creatinine measurements to assist you with recognit ion of early kidney disease. Caveats: ??Plasma creatinine should be a t steady-state (unchanged within the past week). For patient s multiply eGFR by 1.2. The MDRD equation was developed using patients be tween the ages of 18 and 70 years. ?? The MDRD equation has not been validated for patients < 18 years of age and should not be used to assess renal function in the pediatric population. ??The MDRD eGFR equation will also overestimate the true GFR of patients above the age of 70. ??This overestimation is variable bu t increases with age. At present, NKDEP does NOT recommend usi ng the MDRD equation for drug dosing purposes and pharmacists should continue to use their current dosing methods. In addition, numerical eGFR values great er than 60 ml/min/1.73 square meters should be treated as > 60, and not an ex act number due to greater inaccuracies at these higher values. Per NKDEP, they classify normal renal function as any GFR >60ml/min/1.73 square meters; chronic kidney disease wh en GFR <60, and renal failure when GFR <15. ??This calculation may not be valid for patients with atypical muscle mass (very lean or obese), acute renal failur e, and in patients with diabetic kidney disease. References: http://nkdep.nih.gov/resources/NKDEP_Sug gestn4Labs_0606_508.pdf http://www.kidney.org/professionals/kls/ pdf/faq_gfr.pdf Vonnie K, Waqas NA, Gilma AK, Aguila TS, Leo AD, Rupesh EVER. Relative performance of the MDRD and CKD-EPI equa tions for estimating glomerular filtration rate among patients with vari ed clinical presentations. Clin J Am Soc Nephrol;6:1963-72. Specimen Anatomical Collection Method Collection Time Receive d Time (Source) Location / / Volume Laterality Blood specimen 08/29/2012 10:49 3 (specimen) AM EST 10:55 AM EST Resulting Agency Comment Spec In Lab Donell Hernandez MD CHEMISTRY ORDERABLES Performing Organization Address City/State/ZIP Code Phon e Number [place] [id number] [facility] LDL Cholesterol, Direct (06/28/2012 8:49 AM EST) athologist Signature LDL Chol 67 <=99 mg/dL [facility] Comment: The National Cholesterol Education Progr am (NCEP) has set the following guidelines for LDL Cholesterol: Reference range: ?? Optimal: ?<100 mg/dL ?? Near Optimal/Above Optimal: ?? 100-1 29 mg/dL ?? Borderline high: ?130-159 mg/dL ?? High: ? 160-189 mg/dL ?? Very high: ?>fr=067 mg/dL SERENA 2001: 285(01):4828-4750 Specimen Anatomical Collection Method Collection Time Receive d Time (Source) Location / / Volume Laterality Blood specimen 06/28/2012 8:49 AM 012 9:08 (specimen) EST AM EST Resulting Agency Comment Spec In Lab Donell Hernandez MD CHEMISTRY ORDERABLES Performing Organization Address City/State/ZIP Code Phon e Number [place] [phone] CERNER MILLENNIUM (ABNORMAL) Hemoglobin A1c (06/28/2012 8:49 AM EST) Analysis Performed At [facility] Time Signature Hemoglobin A1C 8.4 (H) 4.3 - 6.1 CERNER % MILLENNIUM Est Avg Gluc 194 mg/dL CERNER MILLENNIUM Comment: eAG equivalents for HbA1c percentages: HbA1c(%) ?eAG(mg/dL) 6.0 ?126 6.5 ?140 7.0 ?154 7.5 ?169 8.0 ?183 8.5 ?197 9.0 ?212 9.5 ?226 10.0 ? 240 Limitations: The eAG calculation has not been validated on women, individuals below 18 years old and above 70 years old, and individuals with hemoglobinopathies. Additional resources are available on [facility] ADA website: ??http://professional.diabetes.org/gluc osecalculator.aspx Reference: Scooby MALDONADO, Nba Gilbert, Sydnee R, et al. ??Tr anslating the A1C assay into estimated average glucose values. ??Diabetes Care 2008:31(8):9467-0853. Specimen Anatomical Collection Method Collection Time Receive d Time (Source) Location / / Volume Laterality Blood specimen 06/28/2012 8:49 AM 012 9:08 (specimen) EST AM EST Resulting Agency Comment Spec In Lab Donell Hernandez MD CHEMISTRY ORDERABLES Performing Organization Address City/State/[place] [address] CERNER MILLENNIUM (ABNORMAL) Creatinine, serum (06/28/2012 8:49 AM EST) athologist Signature Creatinine 1.90 (H) 0.80 - CERNER 1.50 mg/dL MILLENNIUM Comment: Please note that the pediatric reference intervals supplied above were not validated at [facility]. Results from pediatri c patients should be interpreted in conjunction to the patient's age, height and muscle mass. Estimated GFR 36 (L) >=60 HOLLI Ramirez Comment: The National Kidney Disease Education Pr ogram (NKDEP) has recommended all laboratories report estimated GFR (eGFR) along with plasma creatinine measurements to assist you with recognit ion of early kidney disease. Caveats: ??Plasma creatinine should be a t steady-state (unchanged within the past week). For patient s multiply eGFR by 1.2. The MDRD equation was developed using patients be tween the ages of 18 and 70 years. ?? The MDRD equation has not been validated for patients < 18 years of age and should not be used to assess renal function in the pediatric population. ??The MDRD eGFR equation will also overestimate the true GFR of patients above the age of 70. ??This overestimation is variable bu t increases with age. At present, NKDEP does NOT recommend usi ng the MDRD equation for drug dosing purposes and pharmacists should continue to use their current dosing methods. In addition, numerical eGFR values great er than 60 ml/min/1.73 square meters should be treated as > 60, and not an ex act number due to greater inaccuracies at these higher values. Per NKDEP, they classify normal renal function as any GFR >60ml/min/1.73 square meters; chronic kidney disease wh en GFR <60, and renal failure when GFR <15. ??This calculation may not be valid for patients with atypical muscle mass (very lean or obese), acute renal failur e, and in patients with diabetic kidney disease. References: http://nkdep.nih.gov/resources/NKDEP_Sug gestn4Labs_0606_508.pdf http://www.kidney.org/professionals/kls/ pdf/faq_gfr.pdf Vonnie K, Waqas NA, Gilma AK, Aguila TS, Leo AD, Rupesh EVER. Relative performance of the MDRD and CKD-EPI equa tions for estimating glomerular filtration rate among patients with vari ed clinical presentations. Clin J Am Soc Nephrol;6:1963-72. Specimen Anatomical Collection Method Collection Time Receive d Time (Source) Location / / Volume Laterality Blood specimen 06/28/2012 8:49 AM 012 9:08 (specimen) EST AM EST Resulting Agency Comment Spec In Lab Donell Hernandez MD CHEMISTRY ORDERABLES Performing Organization Address City/State/ZIP Code Phon e Number [place] [phone] [facility] documented in this encounter Visit Diagnoses Diagnosis Diabetes mellitus - Primary Type II or unspecified type diabetes fredo litus without mention of complication, not stated as uncontrolled Type II or unspecified type diabetes fredo litus with ophthalmic manifestations, uncontrolled(250.52) Type II or unspecified type diabetes fredo litus with ophthalmic manifestations, uncontrolled History of renal transplant Kidney replaced by transplant Immunocompromised Unspecified immunity deficiency S/P bilateral BKA (below knee amputation ) Lower limb amputation, below knee Morbid obesity Weight gain Abnormal weight gain documented in this encounter Care Teams Operational Risk Consultant Relationship Specialty Start Date End Date Candido Jenkins MD PCP - General 05/20/11 04/01/13 [address] [place] [address] documented as of this encounter
--- OUTSIDE RECORDS SUMMARY | 2022-05-24 10:59 | XMS_ITS | Encounter Summary ---
:1955 Author Organization [facility] [place] [address] Care Team Providers Name Role Phone Candido Jenkins MD Primary Care Provider Reason for Visit Reason Comments Right Leg Pain s/p Right BKA 06/21/11 Encounter Details Date Type Department Care Team Description 03/17/2012 Follow-Up Orthopaedics at [facility], DR CRISTIAN Olsen, below knee, L; [facility] Giovana Campbellutehansel below knee; [place] [address] Diabetes mellitus with neuro mendy [phone] Social History Tobacco Use Types Packs/Day Years [...] - Inhaled Oxygen Concentration - - Weight 140.6 kg (310 lb) 03/17/2012 10:31 AM EDT Height 193 cm (6' 4) 03/17/2012 10:31 AM EDT Body Mass Index 37.73 03/17/2012 10:31 AM EDT documented in this encounter Progress Notes Henna Roy Jr., MD - 03/17/2012 11:04 AM EDT Patient Active Problem List Diagnoses Date Noted ??? Amputee, below knee [V49.75M] 03/17/2012 ??? Delayed wound healing [879.9AS] 09/30/2011 ??? Sensorineural hearing loss, bilateral [389.18] 08/11/2011 ??? Tremor, essential [333.1W] 03/31/2011 ??? Injury, other and unspecified, unspecified site [959.9] 02/22/2011 ??? Diabetes mellitus with neuropathy [250.60DQ] 02/16/2011 ??? Charcot's arthropathy, diabetic, R [250.60HA] 02/16/2011 ??? Amputee, below knee, L [V49.75M] 08/02/2006 ??? 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ifestations [250.40D] 08/02/2006 ??? End stage renal disease [585.6] 08/02/2006 High risk foot Case Date: 06/21/2011 Surgeon:HENNA ROY JR, MD - Procedure(s): AMPUTATION, BELOW-KNEE R with delayed healing Subjective: I think things are doing better all the way around. HbA1c- 8.0 BS 210 Objective: Patient arrived to clinic wearing his left leg prosthesis and a dressing and compression sleeve on the right. His incision is generally well approximated. There remain 3 open sites. Laterally he has a 10x 6 x 3mm wound with 20% thin loosely adherent slough layer that has a bright granulation bed and good bleeding after debridement. There is a small 2x2mm opening most central on the stump that tracks down 10mm. There had been no specific treatement to this and after cleaning it out will use a betadine dampened corner of a 2x2 to Loosely pack the wound. Centromedially there is a 7 x 6 x 3mm wound with 100% granulation base.The most medial measures 7 x 4 x 4mm. All of these wounds are clean and moist with a thin loose slough layer covering the wound bed. All of the periwound skin is soft. Drainage has been scant and clear. Stump is taking nice shape. He is wearing compression daily. Since he was here last he had difficulty with an infected gland in my armpit. he has been on an antibiotic. Procedure: The incision was washed with Hibiclenz, [...] was able to verbalize s/s to report. Reviewed packing the central medial wound with a wick.F/u in 4 weeks. [facility] is seeing the patient weekly- family is able to perform dressing changes and recognize wound problems. He will call with any change in his incision, fever, chills, malaise or concerns about his stump. Cannot go forward with prosthetic fitting as yet. Supplies given: None documented in this encounter Plan of Treatment Upcoming Encounters Date Type Specialty Care Team Description 05/26/2022 Office Visit Otolaryngology Ricardo Panda PA [facility] [place] [address] (Wo rk) 06/02/2022 Infusion Hematology and Oncology 06/16/2022 Infusion Hematology and Oncology 06/21/2022 Office Visit Neurology Tyler Rojas MD [facility] Neurology [place], [place] [phone] (Wo rk) 06/30/2022 Infusion Hematology and Oncology 07/14/2022 Infusion Hematology and Oncology 07/28/2022 Infusion Hematology and Oncology 08/11/2022 Infusion Hematology and Oncology 11/04/2022 Office Visit Rheumatology Dante Freedman PA [facility] [place] [address] (Wo rk) documented as of this encounter Visit Diagnoses Diagnosis Amputee, below knee, L Lower limb amputation, below knee Diabetes mellitus with neuropathy Type II or unspecified type diabetes fredo litus with neurological manifestations, not stated as uncontrolled documented in this encounter Care Teams Oil Heater Operator Relationship Specialty Start Date End Date Candido Jenkins MD PCP - General 05/20/11 04/01/[address] [place] [id number] documented as of this encounter
--- OUTSIDE RECORDS SUMMARY | 2022-05-24 10:59 | XMS_ITS | Encounter Summary ---
:1955 Author Organization [facility] [place] [address] Care Team Providers Name Role Phone Candido Jenkins MD Primary Care Provider Encounter Details Date Type Department Care Team Description 03/17/2012 Office Visit Endocrinology at [facility] Donell Hardin, Diabetes mellitus; [facility] Giovana tyler MD [place], [place] [address] [facility] [phone] [facility] [place], [place] [address] Social History Tobacco Use Types [...] Sign Reading Time Taken Comments Blood Pressure 137/62 03/17/2012 9:14 AM EDT Pulse 67 03/17/2012 9:14 AM EDT Temperature - - Respiratory Rate 16 03/17/2012 9:14 AM EDT Oxygen Saturation - - Inhaled Oxygen Concentration - - Weight 140.6 kg (310 lb) 03/17/2012 9:14 AM EDT Height 193 cm (6' 4) 03/17/2012 9:14 AM EDT Body Mass Index 37.73 03/17/2012 9:14 AM EDT documented in this encounter Patient Instructions Patient InstructionsDonell Hernandez MD - 03/17/2012 10:04 AM EDT Recent Results (from the past 24 hour(s)) HEMOGLOBIN A1C Component Value Range ??? Hemoglobin A1C 8.0 (*) 4.3 - 6.1 (%) ??? Est Avg Gluc 183 (mg/dL) CREATININE, SERUM Component Value Range ??? Creatinine 1.83 (*) 0.80 - 1.50 (mg/dL) ? ? Estimated GFR 38 (*) >=60 TSH Component Value Range ??? TSH 2.32 0.27 - 4.20 (mcIU/mL) I recommended that you take the insulin as written out below: AM take 70 units NPH (cloudy) and 65 units regular (clear) Evening meal : Take 65 units of regular (clear) before you eat 10-11 PM Take 75 units of NPH (cloudy) Our goal is a sugar under 120 before breakfast., Go up to 80 units if you are not under 120 most of the time in the morning after one week on this new insulin schedule. documented in this encounter Progress Notes Donell Hernandez MD - 03/17/2012 9:36 AM EDT Subjective: Patient ID: Leroy Dailey is a 56 y.o. male. HPI We are consulted by Dr Jenkins to evaluate and treat Not see n by me for 4 years Broke R ankle, healed poorly, ultimately had R BKA - now pain free Surgery Jun 22, awaiting prosthesis Regimen Oral Basal Bolus hbgm 4x a day fbs 150-250 Hypo No Gets shakey, gets quiet Diet B 2 donuts (plain) Sn L Canned Holcomb beef sandwich Sn D Chicken nuggests Beans potatoes Sn Exercise Not much yet - waiting for R prosthesis complications eyes prior laser therapy feet Bilateral bka kidneys transplant autonomic: No gastroparesis bladder hypo unaware tachycardia cardiac no chest pain on exertion shortness of breath on 1 flight of stairs history of stent cabg chf prevention: last eye exam: Within 3mo last microalbumin : Followed by Transplant team, 2011 last Cr: today last lipid panel:2011 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 faucets: Sees prosthetic expert flu shot :yes pneumovax: 2012 acei Yes, arb Asa yes statin yes Review of Systems Objective: Physical Exam Vitals - LB/FT 03/17/2012 03/17/2012 02/23/2012 02/23/2012 11/08/2011 B/P - Systolic 137 129 149 B/P - Diastolic 62 58 67 Pulse 67 78 Temperature Respirations 16 18 Height 6' 4 Weight 310 lb 311 lb BMI 37.75 kg/m2 37.87 kg/m2 Vitals - LB/FT 11/08/2011 B/P - Systolic B/P - Diastolic Pulse 68 Temperature Respirations Height 6' 4 Weight 311 lb BMI 37.87 kg/m2 Appearance: upbeat wt Change stable eyes: no retinopathy seen by green light OD, old retinopathy OS ext: bilateral bka, wearing a splitting machine tender sock on R Recent Results (from the past 24 hour(s)) HEMOGLOBIN A1C Component Value Range ??? Hemoglobin A1C 8.0 (*) 4.3 - 6.1 (%) ??? Est Avg Gluc 183 (mg/dL) CREATININE, SERUM Component Value Range ??? Creatinine 1.83 (*) 0.80 - 1.50 (mg/dL) ? ? Estimated GFR 38 (*) >=60 TSH Component Value Range ??? TSH 2.32 0.27 - 4.20 (mcIU/mL) Results for LEROY DAILEY ( ) as of 03/17/2012 09:51 Ref. Range 09/09/2010 12:56 02/17/2011 11:36 06/04/2011 13:16 02/23/2012 09:53 03/17/2012 08:06 Hemoglobin A1C 4.3-6.1 % 7.9 (H) 8.5 (H) 7.5 (H) 8.1 (H) 8.0 (H) Ref. Range 06/23/2011 16:02 06/24/2011 04:18 06/24/2011 04:18 02/23/2012 09:53 03/17/2012 08:06 Creatinine 0.80-1.50 mg/dL 2.05 (H) 2.02 (H) 2.02 (H) 1.86 (H) 1.83 (H) Assessment and Plan: 1) DM2- not as well controlled as we would like for someone with a transplant. The possible strategies were to add lunchtime R, To just increase all doses or to move the PM NPH to 10 PM from 5 PM. Of these, the one least likely ot cause weight gain in to move the NPH, so I recommended that one. He will bump the PM dose to 75, then 80 units, keeping the other doses the same. We discussed that he should pay attention to the calories in various brands of donuts (since thks is a long habit) rather than the sugar. 2) morbid obesity- I emphasized that diet, not exercise, was the place to improve 3) bilateral BKA - he is in good spirits about this and plans to walk without a walker 4) renal transplant/immunocompromise - improved function since amputation and stable 5) prevention services - up to date No problem-specific visit notes found for this encounter. documented in this encounter Plan of Treatment Upcoming Encounters Date Type Specialty Care Team Description 05/26/2022 Office Visit Otolaryngology Ricardo Panda PA [facility] [address] [place] [address] (Wo rk) 06/02/2022 Infusion Hematology and Oncology 06/16/2022 Infusion Hematology and Oncology 06/21/2022 Office Visit Neurology Tyler Rojas MD [facility] Neurology [place], [place] [phone] (Wo rk) 06/30/2022 Infusion Hematology and Oncology 07/14/2022 Infusion Hematology and Oncology 07/28/2022 Infusion Hematology and Oncology 08/11/2022 Infusion Hematology and Oncology 11/04/2022 Office Visit Rheumatology Dante Freedman PA [facility] RHEUMATOLOGY [place], [place] [address] (Wo rk) documented as of this encounter Procedures Procedure Name Priority Date/Time Associated Diagnosis Comme nts CREATININE Routine 03/17/2012 8:06 AM Diabetes mellitus Resu lts for this EDT procedure are i n the results section . TSH Routine 03/17/2012 8:06 AM Diabetes mellitus Resu lts for this EDT procedure are i n the results section . HEMOGLOBIN A1C Routine 03/17/2012 8:06 AM Diabetes mellitus Re sults for this EDT procedure are i n the results section . documented in this encounter Results LDL Cholesterol, Direct (06/28/2012 8:49 AM EST) P athologist Signature LDL Chol 67 <=99 mg/dL CERNER Direct [facility] Comment: The National Cholesterol Education Progr am (NCEP) has set the following guidelines for LDL Cholesterol: Reference range: ?? Optimal: ?<100 mg/dL ?? Near Optimal/Above Optimal: ?? 100-1 29 mg/dL ?? Borderline high: ?130-159 mg/dL ?? High: ? 160-189 mg/dL ?? Very high: ?>ej=997 mg/dL SERENA 2001: 285(19):3337-5911 Specimen Anatomical Collection Method Collection Time Receive d Time (Source) Location / / Volume Laterality Blood specimen 06/28/2012 8:49 AM 012 9:08 (specimen) EST AM EST Resulting Agency Comment Spec In Lab Donell Hernandez MD CHEMISTRY ORDERABLES Performing Organization Address City/State/[place] [address] [facility] (ABNORMAL) Hemoglobin A1c (06/28/2012 8:49 AM EST) Analysis Performed At Patho logist Time Signature Hemoglobin A1C 8.4 (H) 4.3 [...] hemoglobinopathies. Additional resources are available on [facility] ADA website: ??http://professional.diabetes.org/gluc osecalculator.aspx Reference: Scooby MALDONADO, Nba J, Sydnee R, et al. ??Tr anslating the A1C assay into estimated average glucose values. ??Diabetes Care 2008:31(8):0029-4775. Specimen Anatomical Collection Method Collection Time Receive d Time (Source) Location / / Volume Laterality Blood specimen 06/28/2012 8:49 AM 012 9:08 (specimen) EST AM EST Resulting Agency Comment Spec In Lab Donell Hernandez MD CHEMISTRY ORDERABLES Performing Organization Address City/State/[place] [address] CERNER [facility] (ABNORMAL) Creatinine, serum (06/28/2012 8:49 AM EST) athologist Signature Creatinine 1.90 (H) 0.80 - CERNER 1.50 mg/dL MILLENNIUM Comment: Please note that the pediatric reference intervals supplied above were not validated at [facility]. Results from pediatri [...] disease. References: http://nkdep.nih.gov/resources/NKDEP_Sug gestn4Labs_0606_508.pdf http://www.kidney.org/professionals/kls/ pdf/faq_gfr.pdf Vonnie Oneal, Waqas NA, Gilma AK, Aguila TS, Leo [...] Organization Address City/State/[place] [address] [facility] TSH (03/17/2012 8:06 AM EDT) athologist Signature TSH 2.32 0.27 - 4.20 CERNER mcIU/mL MILLENNIUM Specimen Anatomical Collection Method Collection Time Receive d Time (Source) Location / / Volume Laterality Blood specimen 03/17/2012 8:06 AM 012 8:15 (specimen) EDT AM EDT Resulting Agency Comment Spec In Lab Donell Hernandez MD CHEMISTRY ORDERABLES Performing Organization Address City/State/[place] [address] CERNER [facility] (ABNORMAL) Creatinine, serum (03/17/2012 8:06 AM EDT) P athologist Signature Creatinine 1.83 (H) 0.80 - CERNER 1.50 mg/dL MILLENNIUM Comment: Please note that the pediatric reference intervals supplied above were not validated at [facility]. Results from pediatri c patients should be interpreted in conjunction to the patient's age, height and muscle mass. Estimated GFR 38 (L) >=60 HOLLI Ramirez Comment: The National [...] age. At present, NKDEP does NOT recommend i ng the MDRD equation for drug dosing [...] Location / / Volume Laterality Blood specimen 03/17/2012 8:06 AM 012 8:15 (specimen) EDT AM EDT Resulting Agency Comment Spec In Lab Donell Hernandez MD CHEMISTRY ORDERABLES Performing Organization Address City/State/[place] [address] CERNER MILLENNIUM (ABNORMAL) Hemoglobin A1c (03/17/2012 8:06 AM EDT) Analysis Performed At Patho logist Time Signature Hemoglobin A1C 8.0 (H) 4.3 - 6.1 CERNER % MILLENNIUM Est Avg Gluc 183 mg/dL CERNER [facility]ILLENNI[facility] Comment: eAG equivalents for HbA1c percentages: HbA1c(%) ?eAG(mg/dL) 6.0 ?126 6.5 ?140 7.0 ?154 7.5 ?169 8.0 ?183 8.5 ?197 9.0 ?212 9.5 ?226 10.0 ? 240 Limitations: The eAG calculation has not been validated on women, individuals below 18 years old and above 70 years old, and individuals with hemoglobinopathies. Additional resources are available on [facility] ADA website: ??http://professional.diabetes.org/gluc osecalculator.aspx Reference: Scooby MALDONADO, Nba J, Sydnee R, et al. ??Tr anslating the A1C assay into estimated average glucose values. ??Diabetes Care 2008:31(8):3642-2218. Specimen Anatomical Collection Method Collection Time Receive d Time (Source) Location / / Volume Laterality Blood specimen 03/17/2012 8:06 AM 012 8:15 (specimen) EDT AM EDT Resulting Agency Comment Spec In Lab Donell Hernandez MD CHEMISTRY ORDERABLES Performing Organization Address City/State/[place] [address] [address] [facility] documented in this encounter Visit Diagnoses Diagnosis Diabetes mellitus Type II or unspecified type diabetes fredo litus without mention of complication, not stated as uncontrolled Amputee, below knee Lower limb amputation, below knee documented in this encounter Care Teams Hoister Relationship Specialty Start Date End Date Candido Jenkins MD PCP - General 05/20/11 04/01/13 [address] [place] [address] documented as of this encounter
--- OUTSIDE RECORDS SUMMARY | 2022-05-24 10:59 | XMS_ITS | Encounter Summary ---
:1955 Author Organization [facility] [place] [address] Care Team Providers Name Role Phone Candido Jenkins MD Primary Care Provider Reason for Referral Physical Therapy (Routine) - Complete - Patient Will Schedule External Appt Specialty Diagnoses / Procedures Referred By Contact Refer red To Contact Physical Therapy Diagnoses S/P bilateral BKA (below knee amputation) [facility] Orthopa[facility] 3c [facility] [place] [address] Referral ID Status Reason Start Expiration Visits Visits Date Date Requested Authorized [id number] Complete - Evaluate and 06/28/2012 12/25/2012 1 1 Patient Will Treat Schedule External Appt Reason for Visit Reason Comments Wound Check s/p Right BKA 06/21/12 Encounter Details Date Type Department Care Team Description 06/28/2012 Follow-Up Orthopaedics at [facility], DR FOSTER S/P bilateral BKA (below kne e amputation) (Primary Dx); [facility] Jayleneohlaury's arthropathy, diabe tic, R; [place] [address] Amputee, below knee, L; [phone] Delayed wound h ealing Social History Tobacco Use Types Packs/Day Years [...] encounter Progress Notes Lizzy Pennington RN - 06/28/2012 1:36 PM EST LOWER EXTREMITY TEAM NURSE VISIT Case Date: 06/21/2011 Surgeon:HENNA ROY JR, MD - Procedure(s): AMPUTATION, BELOW-KNEE Subjective: I got the new leg and boy am I out of shape. Objective: Patient arrived to clinic wearing his left leg prosthesis and a dressing and his gel liner on the right. His incision is generally well healed. There are 4 open sites. Most laterally the site has epithelialized. This site is pocked in appearance. It did not fully granulate before epithelizing. There is no periwound erythema or purulence noted. From the center toward the medial #1 wound measures 2 x 2 x 9mm and #2 7 x 7 x 3mm the most medial measures 7 x 3 x 0mm. All 3 sites have pearly granular bases beneath thin fibrin. He had his HbA1c done 12-5-12 and it was 8.4 w/ EAg of 194. ( slight increase in A1c and weight. Added Victoza). Procedure: The incision was washed with Hibiclenz, rinsed with nss and dried. All fibrin was sharplydebrided with sterile scissor, forceps and #15 blade. The end of a dry 2 x 2 gauze was tucked in to #1 wound.The remaining medial sites were painted with NORMOGEL Ag and covered with a dsd then he was returned to his gel liner. Plan: Dressing changes as above. Mother is comfortable with the plan.His mother does the dressings and assess wound healing. She was able to verbalize s/s to report. He was given a prescription to begin PT for balance, functional mobility and strengthening. He was cautioned to check the stump frequently throughout the day while he is weaning into the leg. He will call with any change in his incision, fever, chills, malaise or concerns about his stump. Supplies given: NONE This visit was supervised by Dr. Roy documented in this encounter Plan of Treatment Upcoming Encounters Date Type Specialty Care Team Description 05/26/2022 Office Visit Otolaryngology Ricardo Panda PA [facility] [place], [place] [address] (Wo rk) 06/02/2022 Infusion Hematology and Oncology 06/16/2022 Infusion Hematology and Oncology 06/21/2022 Office Visit Neurology Tyler Rojas MD [facility] Neurology [place], [place] [phone] (Wo rk) 06/30/2022 Infusion Hematology and Oncology 07/14/2022 Infusion Hematology and Oncology 07/28/2022 Infusion Hematology and Oncology 08/11/2022 Infusion Hematology and Oncology 11/04/2022 Office Visit Rheumatology aDnte Freedman PA [facility] RHEUMATOLOGY [place], [place] [address] (Wo rk) Scheduled Referrals Name Type Priority Associated Diagnoses Order S chedule Referral to Outpatient Referral Routine S/P bilateral BKA Ord ered: Physical Therapy (below knee 06/28/2012 amputation) documented as of this encounter Visit Diagnoses Diagnosis S/P bilateral BKA (below knee amputation ) - Primary Lower limb amputation, below knee Charcot's arthropathy, diabetic, R 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
--- OUTSIDE RECORDS SUMMARY | 2022-05-24 10:59 | XMS_ITS | Encounter Summary ---
:1955 Author Organization [facility] [address] Care Team Providers Name Role Phone Candido Jenkins MD Primary Care Provider Reason for Visit Reason Comments Wound Evaluation r bka 06/21/12 Encounter Details Date Type Department Care Team Description 08/29/2012 Follow-Up Orthopaedics at [facility], DR CRISTIAN Olsen, below knee; [facility] Lizzy Lopez, RN DEPT OF ORTHOPAEDICS Delayed wound healing; [place] [address] Diabetes mellitus with neuro mendy; [phone] Charcot's arthr opathy, diabetic, R; Amputee, below knee, L; Diabetes mellit us; DM eye manif ty pe II, uncontrolled Social History Tobacco Use Types Packs/Day Years [...] encounter Progress Notes Lizzy Pennington RN - 08/29/2012 10:50 AM EST LOWER EXTREMITY TEAM NURSE VISIT Case Date: 06/21/2011 Surgeon:HENNA GAMINO JR, MD - Procedure(s): AMPUTATION, BELOW-KNEE Subjective: I got the new leg and I wear it about 3 hours every day. I think it is going ok. Objective: Patient arrived to clinic wearing his left leg prosthesis and a compression sleeve on theright. Appreciate mild redness and slight warmth about the right stump. His incision continues generally well healed. There are 2 open sites along the incision now and these 2 are medial. Most laterally the site has epithelialized and is somewhat invaginated. There is no periwound erythema or purulence noted. From the center toward the medial #1 wound measures 2 x 2 x 4mm and #2 5 x 4 x 2mm. The 2 sites have pearly granular bases beneath thin fibrin. Mom again stopped dressing changes when the fibrin covered the wounds. He has lost approximately 17 lbs. He reports trying to eat less. He had his HbA1c done 12-5-12 and it was 8.4 w/ EAg of 194. ( slight increase in A1c and weight. Added Victoza). Procedure: The incision was washed with Hibiclenz, rinsed with nss and dried. All fibrin was sharplydebrided with sterile scissor, forceps and #15 blade. The end of a dry 2 x 2 gauze was tucked in to #1 and 2 wounds with Solosite Plan: Dressing changes as above.Mother encouraged to use gauze for the wound dressing to encourage debridement with changes. Mother is comfortable with the plan. She was again encouraged to scrub the wounds well to help break up the fibrin and prevent early closure of the wounds. Continue PT for balance, functional mobility and strengthening. He was cautioned to check the stump frequently throughout the day while he is weaning into the liner. He will call with any change in his incision, fever, chills, malaise or concerns about his stump. Supplies given: NONE This visit was supervised by documented in this encounter Plan of Treatment Upcoming Encounters Date Type Specialty Care Team Description 05/26/2022 Office Visit Otolaryngology Ricardo Panda PA [facility] [address] [place], [place] [address] (Wo rk) 06/02/2022 Infusion Hematology and Oncology 06/16/2022 Infusion Hematology and Oncology 06/21/2022 Office Visit Neurology Tyler Rojas MD [facility] Neurology [place], [place] [phone] (Wo rk) 06/30/2022 Infusion Hematology and Oncology 07/14/2022 Infusion Hematology and Oncology 07/28/2022 Infusion Hematology and Oncology 08/11/2022 Infusion Hematology and Oncology 11/04/2022 Office Visit Rheumatology Dante Freedman PA [facility] RHEUMATOLOGY [place], [place] [address] (Wo rk) documented as of this encounter Procedures Procedure Name Priority Date/Time Associated Diagnosis Comme nts CREATININE STAT 08/29/2012 10:49 AM Diabetes fredo litus Results for this EST DM eye manif type II, proced ure are in uncontrolled the results section. HEMOGLOBIN A1C STAT 08/29/2012 10:49 AM DM eye manif type I I, Results for this EST uncontrolled procedure are i n the results section. documented in this encounter Results (ABNORMAL) Hemoglobin A1c (08/29/2012 10:49 AM EST) Analysis Performed At [facility] Time Signature Hemoglobin A1C 7.7 (H) 4.3 - 6.1 CERNER % MILLENNIUM Est Avg Gluc 174 mg/dL CERNER [facility] Comment: eAG equivalents for HbA1c percentages: HbA1c(%) ?eAG(mg/dL) 6.0 ?126 6.5 ?140 7.0 ?154 7.5 ?169 8.0 ?183 8.5 ?197 9.0 ?212 9.5 ?226 10.0 ? 240 Limitations: The eAG calculation has not been validated on women, individuals below 18 years old and above 70 years old, and individuals with hemoglobinopathies. Additional resources are available on [facility] ADA website: ??http://professional.diabetes.org/gluc osecalculator.aspx Reference: Scooby MALDONADO, Nba Gilbert, Sydnee R, et al. ??Tr anslating the A1C assay into estimated average glucose values. ??Diabetes Care 2008:31(8):4124-7223. Specimen Anatomical Collection Method Collection Time Receive d Time (Source) Location / / Volume Laterality Blood specimen 08/29/2012 10:49 3 (specimen) AM EST 10:55 AM EST Resulting Agency Comment Spec In Lab Donell Hernandez MD CHEMISTRY ORDERABLES Performing Organization Address City/State/[place] [address] HOLLI MÉNDEZ (ABNORMAL) Creatinine, serum (08/29/2012 10:49 AM EST) athologist Signature Creatinine 1.62 (H) 0.80 - CERNER 1.50 mg/dL MILLENNIUM Comment: Please note that the pediatric reference intervals supplied above were not validated at [facility]. 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
--- OUTSIDE RECORDS SUMMARY | 2022-05-24 10:59 | XMS_ITS | Encounter Summary ---
:1955 Author Organization [facility] [address] Care Team Providers Name Role Phone Candido Jenkins MD Primary Care Provider Reason for Visit Reason Comments Wound Check Right BKA DOS 06/21/12 Encounter Details Date Type Department Care Team Description 01/31/2013 Office Visit Orthopaed[facility] [place] [facility] DR CRISTIAN Walters of BKA (Primary Dx); [facility] Giovana tyler Delayed wound healing; [place] [address] Amputee, below knee; [phone] Amputee, below knee, L; Diabetes mellit us with neuropathy Social History Tobacco Use [...] Pressure - - Pulse - - Temperature 37.1 ??C (98.7 ??F) 01/31/2013 10:09 AM EDT Respiratory Rate - - Oxygen Saturation - - Inhaled Oxygen Concentration - - Weight 149.7 kg (330 lb) 01/31/2013 10:09 AM EDT Height 193 cm (6' 4) 01/31/2013 10:09 AM EDT Body Mass Index 40.17 01/31/2013 10:09 AM EDT documented in this encounter Progress Notes Lizzy Pennington RN - 01/31/2013 10:18 AM EDT LOWER EXTREMITY TEAM NURSE VISIT Case Date: 06/21/2011 Surgeon:HENNA GAMINO JR, MD - Subjective: I'm doing great, I wear the leg and sometimes I don't even need my cane. The holes healed up finally so, I think everything is going good. Objective: Patient arrived to clinic via wheel chair. The right stump incision is generally well healed. There is some invagination of the most lateral wound but all sites have epithelialized. The stump continues to shrink and has good shape. He takes the legs off at bedtime and sleeps w/o the shrinkers or sleeves/socks. There is a musty odor in the sleeve and about the stump. The inner socks he is not changing regularly but his mother notes that he has a drawer full of clean socks. The left stump is clean, dry and well shaped. He had his HbA1c done 6-8-12 and it was 6.8 continues on Victoza. Plan: Patient encouraged to remove the gel liners twice during the day and set the stumps out in thelight or sun for 10- 20 min. Likewise he was encouraged to change the liners every day so his mothercan keep them clean. Continue good management of daily blood sugars and weight management strategies. He was encouraged to check the stump frequently throughout the day. We gave him a prescription for 4 new gel sleeves for the right prosthetic. Supplies given: NONE We will see him back in 3 months- sooner with any concerns. This visit was supervised by documented in this encounter Plan of Treatment Upcoming Encounters Date Type Specialty Care Team Description 05/26/2022 Office Visit Otolaryngology Ricardo Panda PA [facility] Dr [place] [address] (Wo rk) 06/02/2022 Infusion Hematology and Oncology 06/16/2022 Infusion Hematology and Oncology 06/21/2022 Office Visit Neurology Tyler Rojas MD [facility] er Neurology [place], [place] [phone] (Wo rk) 06/30/2022 Infusion Hematology and Oncology 07/14/2022 Infusion Hematology and Oncology 07/28/2022 Infusion Hematology and Oncology 08/11/2022 Infusion Hematology and Oncology 11/04/2022 Office Visit Rheumatology Dante Freedman PA [facility] RHEUMATOLOGY [place], [place] [address] (Wo rk) documented as of this encounter Visit Diagnoses Diagnosis Hx of BKA - Primary Lower limb amputation, below knee Delayed wound healing Open wound(s) (multiple) of unspecified site(s), complicated Amputee, below knee, L Lower limb amputation, below knee Diabetes mellitus with neuropathy Type II or unspecified type diabetes fredo litus with neurological manifestations, not stated as uncontrolled documented in this encounter Care Teams [employer] Membership Advisors Relationship Specialty Start Date End Date Candido Jenkins MD PCP - General 05/20/11 04/01/13 [address] [place] [address] documented as of this encounter
--- OUTSIDE RECORDS SUMMARY | 2022-05-24 10:59 | XMS_ITS | Encounter Summary ---
:1955 Author Organization [facility] [place] [address] Care Team Providers Name Role Phone Candido Jenkins MD Primary Care Provider Reason for Visit Reason Onset Date Comments Medication Refill 11/17/2012 Encounter Details Date Type Department Care Team Description 11/17/2012 Refill Solid Organ Transplant Karen Chino, Transplanted kidney at [facility] RISK CONTROL MANAGER (Primary Dx) [facility] [place] [address] TRANSPLANT SURGERY [phone] [place], [place] [address] (Wo rk) Social History Tobacco [...] PA [facility] Dr [place], [place] [address] (Wo rk) 06/02/2022 Infusion Hematology and Oncology 06/16/2022 Infusion Hematology and Oncology 06/21/2022 Office Visit Neurology Tyler Rojas MD [facility] er Neurology [place], [place] [phone] (Wo rk) 06/30/2022 Infusion Hematology and Oncology 07/14/2022 Infusion Hematology and Oncology 07/28/2022 Infusion Hematology and Oncology 08/11/2022 Infusion Hematology and Oncology 11/04/2022 Office Visit Rheumatology Dante Freedman PA [facility] RHEUMATOLOGY [place], [place] [address] (Wo rk) documented as of this encounter Visit Diagnoses Diagnosis Transplanted kidney - Primary Kidney replaced by transplant documented in this encounter Care Teams Wood Planer Relationship Specialty Start Date End Date Candido Jenkins MD PCP - General 05/20/11 04/01/13 [address] [place] [address] documented as of this encounter
--- OUTSIDE RECORDS SUMMARY | 2022-05-24 10:59 | XMS_ITS | Encounter Summary ---
:1955 Author Organization [facility] [place] [address] Care Team Providers Name Role Phone Candido Jenkins MD Primary Care Provider Reason for Visit Reason Comments Diabetes Encounter Details Date Type Department Care Team Description 08/29/2012 Office Visit Endocrinology at [facility] C Donell Hernandez, Nasal sinus congestion (Prim tiffany Dx); [facility] MD MALDONADO neuro manif type II, uncontrolled; [facility] eye manif type II, uncont rolled; [place] [address] MALDONADO renal manif type II, uncontrolled; [phone] ENDOCRINOLOGY Hypertension; DEPT. Morbid obesity; [place] [phone] S/P bilateral BKA (below knee amputation ) Social History Tobacco Use Types Packs/Day Years [...] Sign Reading Time Taken Comments Blood Pressure 140/66 08/29/2012 1:07 PM EST Pulse 76 08/29/2012 1:07 PM EST Temperature - - Respiratory Rate - - Oxygen Saturation - - Inhaled Oxygen Concentration - - Weight 151.5 kg (334 lb) 08/29/2012 1:07 PM EST Height - - Body Mass Index 40.66 06/28/2012 10:10 AM EST documented in this encounter Patient Instructions Patient InstructionsDonell Hernandez MD - 08/29/2012 1:38 PM EST Recent Results (from the past 24 hour(s)) CREATININE, SERUM Component Value Range Creatinine 1.62 (*) 0.80 - 1.50 (mg/dL) Estimated GFR 44 (*) >=60 HEMOGLOBIN A1C Component Value Range Hemoglobin A1C 7.7 (*) 4.3 - 6.1 (%) Est Avg Gluc 174 The HA1c fell from 8.4 to 7.7 % and is now at our target. The kidney function improved from a creatinine of 1.9 to 1.6. documented in this encounter Progress Notes Donell Hernandez MD - 08/29/2012 1:21 PM EST We are consulted by Dr Jenkins to evaluate and treat DM2 in the setting of renal transplant with somediminution in function, sevre retinopathy that has been treated. Bilateral bka with poor stump healing on R and morbid obesity. When I last saw Mr Dailey I started liraglutide to see if we could prevent further weight gain and restore deteriorating diabetes control On liraglutide for 2 months Two R stump ulcers- followed closely in [facility] Says pulse and BP are up since victoza Now enjoying using a computer to search the internet for projects Regimen Victoza 1.8 daily Basal NPH 70 bid Bolus regular 80 bid hbgm 170-210 Hypo none Diet B 2 donuts Sn L Meat loaf potato corn Sn D burgers and salad Sn SF Energy bar Exercise second prosthesis 2 h a day, goes to PT complications Eyes prior laser therapy Feet Bilateral BKA, working on second prosthesis Kidneys transplant autonomic: no gastroparesis bladder hypo unaware tachycardia cardiac no chest pain on exertion No shortness of breath at rest No history of stent cabg chf prevention: last eye exam:2011 last microalbumin :2011 last Cr:today last lipid panel:2011 regular communications coordinator:no special shoes:no flu shot :yes pneumovax: 2012 acei yes Asa Yes statin yes Vitals 08/29/2012 06/28/2012 04/19/2012 SYSTOLIC 140 125 131 DIASTOLIC 66 60 56 PULSE 76 61 62 RESPIRATIONS 16 HEIGHT 76 in 76 in WEIGHT 334 lbs 334 lbs 310 lbs BODY MASS INDEX 40.67 kg/m2 40.67 kg/m2 37.75 kg/m2 Appearance: looks well wt Change Stable though he says he has lost weight eyes: Difficult to visualize but old scars from rx of retinopathy seen by [facility] Recent Results (from the past 24 hour(s)) CREATININE, SERUM Component Value Range Creatinine 1.62 (*) 0.80 - 1.50 (mg/dL) Estimated GFR 44 (*) >=60 HEMOGLOBIN A1C Component Value Range Hemoglobin A1C 7.7 (*) 4.3 - 6.1 (%) Est Avg Gluc 174 Results for LEROY DAILEY ( ) as of 08/29/2012 13:21 Ref. Range 03/17/2012 08:06 06/28/2012 08:49 08/29/2012 10:49 Creatinine 0.80-1.50 mg/dL 1.83 (H) 1.90 (H) 1.62 (H) Estimated GFR Latest Range: >=60 38 (L) 36 (L) 44 (L) Hemoglobin A1C 4.3-6.1 % 8.0 (H) 8.4 (H) 7.7 (H) Est Avg Gluc No range found 183 194 174 1) DM2 - I am pleased ot see a nice response in HA1c that has brought him back to our target range of an HA1c of 7.5 % or less to protect his transplant kidney. This has been accomplished without weight gain and he is clearly snacking less, so liraglutide is having a good effect. 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 Weight loss should preserve renal function in the transplant as would good diabetes control 3) bilateal bka - he is making progress towards becoming ambulatory 4) morbid obesity - I expect we peter see some weight loss from use of liraglutide over time documented in this encounter Plan of Treatment Upcoming Encounters Date Type Specialty Care Team Description 05/26/2022 Office Visit Otolaryngology Ricardo Panda PA [facility] [place] [address] (Wo rk) 06/02/2022 Infusion Hematology and Oncology 06/16/2022 Infusion Hematology and Oncology 06/21/2022 Office Visit Neurology Tyler Rojas MD [facility] Neurology [place], [place] [phone] (Wo rk) 06/30/2022 Infusion Hematology and Oncology 07/14/2022 Infusion Hematology and Oncology 07/28/2022 Infusion Hematology and Oncology 08/11/2022 Infusion Hematology and Oncology 11/04/2022 Office Visit Rheumatology Dante Freedman PA [facility] RHEUMATOLOGY [place] [address] (Wo rk) documented as of this encounter Results (ABNORMAL) Creatinine, serum (11/29/2012 11:18 AM EDT) athologist Signature Creatinine 1.76 (H) 0.80 - CERNER 1.50 mg/dL [facility] Comment: Please note that the pediatric reference intervals supplied above were not validated [place] [facility] Results from pediatri c [...] Address City/State/[place] [address] CERNER MILLENNIUM (ABNORMAL) Hemoglobin A1c (11/29/2012 11:18 AM EDT) Analysis Performed At [facility] Time Signature Hemoglobin A1C 6.8 (H) 4.3 - 6.1 CERNER % MILLENNIUM Comment: The [place] Diabetes Association (ADA) has stated that HbA1c [...] 1:S11 -S66. Est Avg Gluc 148 mg/dL [facility] MILLENNIUM Comment: eAG equivalents for HbA1c percentages: [...] into estimated average glucose values. ??Diabetes Care 2008:31(8):7303-6386. Specimen Anatomical Collection Method Collection Time Receive d Time (Source) Location / / Volume Laterality Blood specimen 11/29/2012 11:18 3 (specimen) AM EDT 11:39 AM EDT Resulting Agency Comment Spec In Lab Donell Hernandez MD CHEMISTRY ORDERABLES Performing Organization Address City/State/[place] [address] [address] [facility] documented in this encounter Visit Diagnoses Diagnosis Nasal sinus congestion - Primary Other diseases of nasal cavity and sinus es Type II or unspecified type diabetes fredo [...] renal manifestations, uncontrolled Hypertension Unspecified essential hypertension Morbid obesity S/P bilateral BKA (below knee amputation ) Lower limb amputation, below knee documented in this encounter Care Teams Medical Writer Relationship Specialty Start Date End Date Candido Jenkins MD PCP - General 05/20/11 04/01/13 [address] [place] [address] documented as of this encounter
--- OUTSIDE RECORDS SUMMARY | 2022-05-24 10:59 | XMS_ITS | Encounter Summary ---
:1955 Author Organization [facility] [place] [address] Care Team Providers Name Role Phone Candido Jenkins MD Primary Care Provider Reason for Visit Reason Onset Date Comments Labs Only 03/17/2012 Encounter Details Date Type Department Care Team Description 03/17/2012 Telephone Endocrinology at [facility] Donell Hernandez MD Labs Only [facility] [place] [address] ENDOCRINOLOGY DEPT. [phone] [place], [place] [address] (Wo rk) Social History Tobacco Use Types Packs/Day Years Used Date Former Smoker Cigarettes 2 20 Quit: 01/19/19 93 Smokeless Tobacco: Never Used Alcohol Use Standard Drinks/Week Comments No 0 (1 standard drink = 0.6 oz pure alcoho l) Sex Assigned at Date Recorded Not on file documented as of this encounter Miscellaneous Notes Telephone Encounter - Donell Hernandez MD - 03/17/2012 8:00 AM EDT Lab documented in this encounter Plan of Treatment Upcoming Encounters Date Type Specialty Care Team Description 05/26/2022 Office Visit Otolaryngology Ricardo Panda PA [facility] [address] [place], [place] [address] (Wo rk) 06/02/2022 Infusion Hematology and Oncology 06/16/2022 Infusion Hematology and Oncology 06/21/2022 Office Visit Neurology Tyler Rojas MD [facility] er Neurology [place], [place] [phone] (Wo rk) 06/30/2022 Infusion Hematology and Oncology 07/14/2022 Infusion Hematology and Oncology 07/28/2022 Infusion Hematology and Oncology 08/11/2022 Infusion Hematology and Oncology 11/04/2022 Office Visit Rheumatology Dante Freedman PA [facility] RHEUMATOLOGY [place], [place] [address] (Wo rk) documented as of this encounter Results TSH (03/17/2012 8:06 AM EDT) athologist Signature TSH 2.32 0.27 - 4.20 CERNER mcIU/mL MILLENNIUM Specimen Anatomical Collection Method Collection Time Receive d Time (Source) Location / / Volume Laterality Blood specimen 03/17/2012 8:06 AM 012 8:15 (specimen) EDT AM EDT Resulting Agency Comment Spec In Lab Donell Hernandez MD CHEMISTRY ORDERABLES Performing Organization Address City/State/[place] [address] CERNER MILLENNIUM (ABNORMAL) Creatinine, serum (03/17/2012 8:06 AM EDT) athologist Signature Creatinine 1.83 (H) 0.80 - CERNER 1.50 mg/dL MILLENNIUM Comment: Please note that the pediatric reference intervals supplied above were not validated at [facility] [place]. Results from pediatri c patients should [...] Organization Address City/State/[place] [address] [facility] (ABNORMAL) Hemoglobin A1c (03/17/2012 8:06 AM EDT) Analysis Performed At [facility] Time Signature Hemoglobin A1C 8.0 (H) 4.3 - 6.1 CERNER % MILLENNIUM Est Avg Gluc 183 mg/dL [facility] Comment: eAG equivalents for HbA1c percentages: [...] [facility] ADA website: ??http://professional.diabetes.org/gluc osecalculator.aspx Reference: Scooby MALDONADO, Nba J, Sydnee R, et al. ??Tr anslating the A1C assay into estimated average glucose values. ??Diabetes Care 2008:31(8):2109-2061. Specimen Anatomical Collection Method Collection Time Receive d Time (Source) Location / / Volume Laterality Blood specimen 03/17/2012 8:06 AM 012 8:15 (specimen) EDT AM EDT Resulting Agency Comment Spec In Lab Donell Hernandez MD CHEMISTRY ORDERABLES Performing Organization Address City/State/[place] [address] [facility] documented in this encounter Visit Diagnoses Diagnosis Diabetes mellitus - Primary Type II or unspecified type diabetes fredo litus without mention of complication, not stated as uncontrolled documented in this encounter Care Teams Healthcare Interpreter Relationship Specialty Start Date End Date Candido Jenkins MD PCP - General 05/20/11 04/01/13 [address] [place] [address] documented as of this encounter
--- OUTSIDE RECORDS SUMMARY | 2022-05-24 10:59 | XMS_ITS | Encounter Summary ---
:1955 Author Organization [facility] [place] [address] Care Team Providers Name Role Phone Candido Jenkins MD Primary Care Provider Reason for Visit Reason Comments Wound Check Right stump Encounter Details Date Type Department Care Team Description 05/19/2012 Follow-Up Orthopaedics [facility] DR CRISTIAN Roblero's arthropathy, diabe tic, R; [facility] D rive Amputee, below knee; [place] [address] Delayed wound healing; [phone] Diabetes mellit us with neuropathy; Amputee, below knee, L Social History Tobacco Use Types Packs/Day Years [...] encounter Progress Notes Lizzy Pennington RN - 05/19/2012 12:06 PM EDT LOWER EXTREMITY TEAM NURSE VISIT 3 Case Date: 06/21/2011 Surgeon:HENNA GAMINO JR, MD - Procedure(s): AMPUTATION, BELOW-KNEE Subjective: I should see the new leg next week. I know I can't really wear it but I want to see it.The wounds are coming along I think. Objective: Patient arrived to clinic wearing his left leg prosthesis and a dressing and compression sleeve on the right. His incision is generally well healed. There are 4 open sites. Most laterally the site has epithelialized all but 4 x 3 x 0mm. This site is pocked in appearance. It did not fully granulate before epithelizing. There is no periwound erythema or purulence noted. From the center toward the medial #1 wound measures 2 x 2 x 5 and #2 measures 4 x 4 x 2. All 3 sites have pearly granular bases beneath thin fibrin. Stump is taking nice shape. He is wearing compression daily. Blood sugars have been between 156 and 213. He had his HbA1c done and it was 8.0 (another decrease) Procedure: The incision was washed with Hibiclenz, rinsed with nss and dried. All fibrin was sharplydebrided with sterile scissor, forceps and #15 blade. The end of a dry 2 x 2 gauze was tucked in to #1 wound.The remaining sites were painted with NORMOGEL Ag and covered with a dsd then a compressogrip was applied to the stump. Plan: Dressing changes as above. Mother is comfortable with the plan.His mother does the dressings and assess wound healing. She was able to verbalize s/s to report. VNA is seeing the patient weekly- family is able to perform dressing changes and recognize wound problems the have d/c'd VNA. He will call with any change in his incision, fever, chills, malaise or concerns about his stump. Supplies given: NONE This visit was supervised by Dr. Bergman documented in this encounter Plan of Treatment Upcoming Encounters Date Type Specialty Care Team Description 05/26/2022 Office Visit Otolaryngology Ricardo Panda PA [facility] [place] [address] (Wo rk) 06/02/2022 Infusion Hematology and Oncology 06/16/2022 Infusion Hematology and Oncology 06/21/2022 Office Visit Neurology Tyler Rojas MD [facility] Dr [place]i [place] [phone] (Wo rk) 06/30/2022 Infusion Hematology and Oncology 07/14/2022 Infusion Hematology and Oncology 07/28/2022 Infusion Hematology and Oncology 08/11/2022 Infusion Hematology and Oncology 11/04/2022 Office Visit Rheumatology Dante Freedman PA [facility] RHEUMATOLOGY [place], [place] [address] (Wo rk) documented as of this encounter Visit Diagnoses Diagnosis Charcot's arthropathy, diabetic, R Type II or unspecified type diabetes fredo litus with neurological manifestations, not stated as uncontrolled Amputee, below knee, L Lower limb amputation, below knee Delayed wound healing Open wound(s) (multiple) of unspecified site(s), complicated documented in this encounter Care Teams Glass Sander Belt Relationship Specialty Start Date End Date Candido Jenkins MD PCP - General 05/20/11 04/01/13 [address] [place] [address] documented as of this encounter
--- OUTSIDE RECORDS SUMMARY | 2022-05-24 10:59 | XMS_ITS | Encounter Summary ---
:1955 Author Organization [facility] [place] [address] Care Team Providers Name Role Phone Dc Ibanez MD Primary Care Provider Encounter Details Date Type Department Care Team Description 04/02/2013 Telephone Endocrinology at [facility] [place] [address] Social History Tobacco Use Types Packs/Day [...] this encounter Miscellaneous Notes Telephone Encounter - Tabitha Wills LPN - 04/02/2013 9:46 AM EDT Labs ordered for endocrine are to be released in April. Told okay to release all labs early for appointment today other then Ha1c that was done 03/05/13. documented in this encounter Plan of Treatment Upcoming Encounters Date Type Specialty Care Team Description 05/26/2022 Office Visit Otolaryngology Ricardo Panda PA [facility] Dr [place] [address] (Wo rk) 06/02/2022 Infusion Hematology and Oncology 06/16/2022 Infusion Hematology and Oncology 06/21/2022 Office Visit Neurology Tyler Rojas MD [facility] Neurology [place], [place] [phone] (Wo rk) 06/30/2022 Infusion Hematology and Oncology 07/14/2022 Infusion Hematology and Oncology 07/28/2022 Infusion Hematology and Oncology 08/11/2022 Infusion Hematology and Oncology 11/04/2022 Office Visit Rheumatology Dante Freedman PA [facility] RHEUMATOLOGY [place], [place] [address] (Wo rk) documented as of this encounter Visit Diagnoses Not on filedocumented in this encounter Care Teams Drum Worker Relationship Specialty Start Date End Date Dc Ibanez MD PCP - General 04/02/13 04/01/14 [address] [place] [address] documented as of this encounter
--- OUTSIDE RECORDS SUMMARY | 2022-05-24 10:59 | XMS_ITS | Encounter Summary ---
:1955 Author Organization [facility] Address [place] [id number] Care Team Providers Name Role Phone Dc Ibanez MD Primary Care Provider Reason for Visit Reason Comments Diabetes Encounter Details Date Type Department Care Team Description 04/02/2013 Office Visit Endocrinology at [facility] Donell Hardin, Type II or unspecified type diabetes mellitus with neurological manifestations, uncontrolled (Primary Dx); [facility] Nasal sinus congestion; [facility] [place] [address] CENTER [phone] END[address] [place] [address] Social History Tobacco Use Types Packs/Day Years [...] Sign Reading Time Taken Comments Blood Pressure 129/64 04/02/2013 11:55 AM EDT Pulse 75 04/02/2013 11:55 AM EDT Temperature - - Respiratory Rate - - Oxygen Saturation - - Inhaled Oxygen Concentration - - Weight - - Height - - Body Mass Index - - documented in this encounter Patient Instructions Patient InstructionsDonell Hernandez MD - 04/02/2013 12:20 PM EDT Recent Results (from the past 24 hour(s)) CREATININE Component Value Range Creatinine 1.55 (*) 0.80 - 1.50 mg/dL Estimated GFR 46 (*) >=60 LDL CHOLESTEROL, DIRECT Component Value Range LDL Chol Direct 61 <=99 mg/dL TSH Component Value Range TSH 1.62 0.27 - 4.20 mcIU/mL The last HA1c was a bit high at 8 % I recommended increasing the nighttime NPH to 85 units ,. If the morning sugar is over 150 after a week, increase the night time NPH again to 90 units. documented in this encounter Progress Notes Donell Hernandez MD - 04/02/2013 12:08 PM EDT Year of diagnosis: Regimen ____ [...] stump healing on R and morbid obesity. Thinks he is losing weight Still having R prosthesis adjusted No longer in PT- I graduated Plans to start an online college course in small engine repair Regimen Victoza 1.8 daily Basal NPH 70 bid Bolus regular 50-80 bid hbgm Bid fbs 180-200 5Pm 180-200 Hypo Got down to 51, needed help - misjudged need for insulin Diet B 2 donuts Sn L Egg salad sandwich Sn D Hot dog and potato stew Sn chips Exercise second prosthesis 2 h a day, goes to PT 2x a week complications Eyes prior laser therapy Feet Bilateral BKA, working on second prosthesis Kidneys transplant autonomic: no gastroparesis bladder hypo unaware tachycardia cardiac no chest pain on exertion No shortness of breath at rest No history of stent cabg chf prevention: last eye exam: December 2012 last microalbumin :2011 last Cr:today last lipid panel:2011 regular lead recoverer:no special shoes:no flu shot :yes pneumovax: 2011 acei yes Asa Yes statin yes Vitals 04/02/2013 03/05/2013 02/15/2013 BP 129/64 133/63 136/55 BP Location Patient Position Pulse 75 77 70 Temp 98.3 98.2 Temp src Oral Oral Resp 20 Height to cm. 193 cm 193 cm Height in inches 6' 4 6' 4 Appearance: looks well wt Change Looks like he has lost weight eyes: old retinopathy seen by green light HA1c on 03/05 was 8 % Recent Results (from the past 24 hour(s)) CREATININE Component Value Range Creatinine 1.55 (*) 0.80 - 1.50 mg/dL Estimated GFR 46 (*) >=60 LDL CHOLESTEROL, DIRECT Component Value Range LDL Chol Direct 61 <=99 mg/dL TSH Component Value Range TSH 1.62 0.27 - 4.20 mcIU/mL 1) DM2 2) CKD in transplant 3) prevention issues 4) bilateral bka PROBLEMS: 1. Type 2 diabetes-Mr. Harper has always had excellent diabetes control. His control is a bit worse today with a hemoglobin A1c at 8%. He does appear to be losing weight since starting Victoza. I recommended that he increase his nighttime NPH by 5 units and wait a week or two and if his fasting blood sugar was not under 200, to increase it again by another 5 units. He is not to change the daytime NPH, as I think his blood sugar control would be much better if he just started with a blood sugar under 150. 2. Chronic kidney disease in his transplant-his transplant has had some compromising function in some time, but this appears to be stable and actually today it is improved from the past six months. His blood pressure is well controlled. 3. Prevention issues-his vaccination have been up-to-date and he will be getting a flu shot as soon as they are available. 4. Bilateral hjhkn-ptd-sopz-amputations - he is very eager to walk again, but he is having problems because the right leg, which is the newest amputation, continues to become reduced in size, and the fittings for the leg become lose. He will have this adjusted again soon. We will see him again in four months. documented in this encounter Plan of Treatment Upcoming Encounters Date Type Specialty Care Team Description 05/26/2022 Office Visit Otolaryngology Ricardo Panda PA [facility] [place] [address] (Wo rk) 06/02/2022 Infusion Hematology and Oncology 06/16/2022 Infusion Hematology and Oncology 06/21/2022 Office Visit Neurology Tyler Rojas MD [facility] Neurology [place], [place] [phone] (Wo rk) 06/30/2022 Infusion Hematology and Oncology 07/14/2022 Infusion Hematology and Oncology 07/28/2022 Infusion Hematology and Oncology 08/11/2022 Infusion Hematology and Oncology 11/04/2022 Office Visit Rheumatology Dante Freedman PA [facility] [place] [address] (Wo rk) documented as of this encounter Procedures Procedure Name Priority Date/Time Associated Diagnosis Comme nts CREATININE STAT 04/02/2013 10:20 Type II or Results for this AM EDT unspecified type procedure a re in diabetes mellitus the result s with neurological section. manifestations, uncontrolled TSH STAT 04/02/2013 10:20 Type II or Results for this AM EDT unspecified type procedure a re in diabetes mellitus the result s with neurological section. manifestations, uncontrolled LDL CHOLESTEROL, STAT 04/02/2013 10:20 Type II or Results for this DIRECT AM EDT unspecified type procedure a re in diabetes mellitus the result s with neurological section. manifestations, uncontrolled documented in this encounter Results TSH (04/02/2013 10:20 AM EDT) P athologist Signature TSH 1.62 0.27 - 4.20 CERNER mcIU/mL [facility] Specimen Anatomical Collection Method Collection Time Receive d Time (Source) Location / / Volume Laterality Blood specimen 04/02/2013 10:20 3 (specimen) AM EDT 10:25 AM EDT Resulting Agency Comment Spec In Lab Donell Hernandez MD CHEMISTRY ORDERABLES Performing Organization Address City/[facility]/ZIP Code Phon e Number [address] [facility] LDL Cholesterol, Direct (04/02/2013 10:20 AM EDT) P athologist Signature LDL Chol 61 <=99 mg/dL CERNER Direct [facility] Comment: The National Cholesterol Education Progr am (NCEP) has set the following guidelines for LDL Cholesterol: Reference range: ?? Optimal: ?<100 mg/dL ?? Near Optimal/Above Optimal: ?? 100-1 29 mg/dL ?? Borderline high: ?130-159 mg/dL ?? High: ? 160-189 mg/dL ?? Very high: ?>ni=966 mg/dL SERENA 2001: 285(19):3319-9097 Specimen Anatomical Collection Method Collection Time Receive d Time (Source) Location / / Volume Laterality Blood specimen 04/02/2013 10:20 3 (specimen) AM EDT 10:25 AM EDT Resulting Agency Comment Spec In Lab Donell Hernandez MD CHEMISTRY ORDERABLES Performing Organization Address City/[facility]/ZIP Code Phon e Number [address] [facility] (ABNORMAL) Creatinine (04/02/2013 10:20 AM EDT) P athologist Signature Creatinine 1.55 (H) 0.80 - CERNER 1.50 mg/dL [facility] Comment: Please note that the pediatric reference intervals supplied above were not validated at [facility]. Results from pediatri c patients should be interpreted in conjunction to the patient's age, height and muscle mass. Estimated GFR 46 (L) >=60 CERNER NELLIEIU M Comment: This estimated GFR (eGFR) [...] Organization Address City/State/ZIP Code Phon e Number [address] [facility] documented in this encounter Visit Diagnoses Diagnosis Type II or unspecified type diabetes fredo litus with neurological manifestations, uncontrolled(250.62) - Primary Type II or unspecified type diabetes fredo litus with neurological manifestations, uncontrolled Nasal sinus congestion Other diseases of nasal cavity and sinus es Diabetes mellitus Type II or unspecified type diabetes fredo litus without mention of complication, not stated as uncontrolled documented in this encounter Care Teams Swimming Pool Service Technician Relationship Specialty Start Date End Date Dc Ibanez MD PCP - General 04/02/13 04/01/14 [address] [place] [address] documented as of this encounter
--- OUTSIDE RECORDS SUMMARY | 2022-05-24 10:59 | XMS_ITS | Encounter Summary ---
:1955 Author Organization [facility] [place] [address] Care Team Providers Name Role Phone Candido Jenkins MD Primary Care Provider Reason for Visit Reason Comments Wound Check Right BKA 06/21/12 Encounter Details Date Type Department Care Team Description 09/28/2012 Follow-Up Orthopaedics at [facility], DR CRISTIAN Olsen, below knee, L (Prim tiffany Dx); [facility] Giovana tyler Type II diabetes mellitus wi th renal manifestations; [place] [address] Diabetes mellitus with neuro mendy; [phone] Delayed wound h ealing; Amputee, below knee; Charcot's arthr opathy, diabetic Social History Tobacco Use Types Packs/Day Years [...] encounter Progress Notes Lizzy Pennington RN - 09/28/2012 10:15 AM EST LOWER EXTREMITY TEAM NURSE VISIT [...] #1 wound measures 2 x 2 x 3mm and #2 5 x 4 x 2mm. The 2 sites have pearly granular bases beneath thin fibrin. Mom stopped dressing changes when the fibrin covered the wounds. There was no fibrin when she would tuck the corner of the gauze in the wounds but shestopped this after 1 week of the last visit because it seemed to go better if I just left them alone. He is currently wearing his right prosthetic up to 6 hours a day. The stump is well shaped redness noted last visit has improved. He has lost approximately 20 lbs. He had his HbA1c done 12-5-12 and it was 8.4 w/ EAg of 194. Added Victoza. Procedure: The incision was washed with Hibiclenz, rinsed with nss and dried. All fibrin was sharplydebrided with sterile scissor, forceps and #15 blade. The end of a dry 2 x 2 gauze was tucked in to #1 and 2 wounds with Solosite Plan: Dressing changes as above. Mother encouraged to use gauze for the wound dressing to encourage debridement with changes and to continue tucking the tips into the wounds. She was again encouraged to scrub the [...] PA [facility] [place] [address] (Wo rk) 06/02/2022 Infusion Hematology and Oncology 06/16/2022 Infusion Hematology and Oncology 06/21/2022 Office Visit Neurology Tyler Rojas MD [facility] Neurology [place], [place] [phone] (Wo rk) 06/30/2022 Infusion Hematology and Oncology 07/14/2022 Infusion Hematology and Oncology 07/28/2022 Infusion Hematology and Oncology 08/11/2022 Infusion Hematology and Oncology 11/04/2022 Office Visit Rheumatology Dante Freedman PA [facility] RHEUMATOLOGY [place], [place] [address] (Wo rk) documented as of this encounter Visit Diagnoses Diagnosis Amputee, below knee, L - Primary Lower limb amputation, below knee 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 Type II or unspecified type diabetes fredo litus with renal manifestations, not stated as uncontrolled Charcot's arthropathy, diabetic Type II or unspecified type diabetes fredo litus with neurological manifestations, not stated as uncontrolled Delayed wound healing Open wound(s) (multiple) of unspecified site(s), complicated documented in this encounter Care Teams Spinning Frame Changer Relationship Specialty Start Date End Date Candido Jenkins MD PCP - General 05/20/11 04/01/13 [address] [place] [address] documented as of this encounter
--- OUTSIDE RECORDS SUMMARY | 2022-05-24 10:59 | XMS_ITS | Encounter Summary ---
:1955 Author Organization [facility] [place] [address] Care Team Providers Name Role Phone Candido Jenkins MD Primary Care Provider Reason for Visit Reason Onset Date Comments Medication Refill 06/05/2012 Encounter Details Date Type Department Care Team Description 06/05/2012 Refill Solid Organ Transplant Karen Chino, S/P kidney transplant at [facility] (Primary Dx) [facility] [place] [address] TRANSPLANT SURGERY [phone] [place], [place] [address] (Wo rk) Social History Tobacco [...] Team Description 05/26/2022 Office Visit Otolaryngology Ricardo aPnda PA [facility] [place] [address] (Wo rk) 06/02/2022 Infusion Hematology and Oncology 06/16/2022 Infusion Hematology and Oncology 06/21/2022 Office Visit Neurology Tyler Rojas MD [facility] er Neurology [place], [place] [phone] (Wo rk) 06/30/2022 Infusion Hematology and Oncology 07/14/2022 Infusion Hematology and Oncology 07/28/2022 Infusion Hematology and Oncology 08/11/2022 Infusion Hematology and Oncology 11/04/2022 Office Visit Rheumatology Dante Freedman PA [facility] RHEUMATOLOGY [place], [place] [address] (Wo rk) documented as of this encounter Visit Diagnoses Diagnosis S/P kidney transplant - Primary Kidney replaced by transplant documented in this encounter Care Teams Civil Service Worker Relationship Specialty Start Date End Date Candido Jenkins MD PCP - General 05/20/11 04/01/13 [address] [place] [address] documented as of this encounter
--- OUTSIDE RECORDS SUMMARY | 2022-05-24 10:59 | XMS_ITS | Encounter Summary ---
:1955 Author Organization [facility] [place] [address] Care Team Providers Name Role Phone Candido Jenkins MD Primary Care Provider Reason for Visit Reason Comments Wound Check s/p Right BKA Dos 06/21/11 Encounter Details Date Type Department Care Team Description 02/23/2012 Follow-Up Orthopaedics at [facility], DR FOSTER Delayed wound healing; [facility] D rive S/P BKA (below knee amputati on) - right lower extremity; [place] [address] Charcot's arthropathy, diabe tic, R; [phone] Diabetes mell us with neuropathy Social History Tobacco Use Types Packs/Day Years Used Date Former Smoker Cigarettes 2 20 Quit: 01/19/19 93 Smokeless Tobacco: Never Used Alcohol Use Standard Drinks/Week Comments No 0 (1 standard drink = 0.6 oz pure alcoho l) Sex Assigned at Date Recorded Not on file documented as of this encounter Progress Notes Lizzy Pennington RN - 02/23/2012 1:54 PM EDT EXTREMITY TEAM NURSE VISIT Case Date: [...] bleeding after debridement. Centromedially there is a 7 x 6 x 3mm wound with 100% granulation base.The most medial measures 7 x 4 x 4mm. Both of these wounds are clean and moist with a thin loose slough layer covering the wound bed. All of the periwound skin is soft. Drainage has been scant and clear. Stump is taking nice shape. He is wearing compression daily. Since he was here last he had difficulty with an infected gland in my armpit. he has been on an antibiotic. His blood sugars went high but have improved since being on the abx. He was febrile but hasbeen afebrile for the last 3 days on abx. He had his HbA1c done 11-08-2011 and it was 8.5 Procedure: The incision was washed with Hibiclenz, [...] about his stump. Supplies given: None Dr. Montez supervised this visit documented in this encounter Plan of Treatment Upcoming Encounters Date Type Specialty Care Team Description 05/26/2022 Office Visit Otolaryngology Ricardo Panda PA [facility] [place] [address] (Oscar escobedo) 06/02/2022 Infusion Hematology and Oncology 06/16/2022 Infusion Hematology and Oncology 06/21/2022 Office Visit Neurology Tyler Rojas MD [facility] Dr [address]i [place] [address] (Wo rk) 06/30/2022 Infusion Hematology and Oncology 07/14/2022 Infusion Hematology and Oncology 07/28/2022 Infusion Hematology and Oncology 08/11/2022 Infusion Hematology and Oncology 11/04/2022 Office Visit Rheumatology Dante Freedman PA [facility] DR [place], [place] [address] (Wo rk) documented as of this encounter Visit Diagnoses Diagnosis Delayed wound healing Open wound(s) (multiple) of unspecified site(s), complicated S/P BKA (below knee amputation) - right lower extremity Lower limb amputation, below knee Charcot's arthropathy, diabetic, R Type II or unspecified type diabetes fredo litus with neurological manifestations, not stated as uncontrolled documented in this encounter Care Teams Piece Maker Relationship Specialty Start Date End Date Candido Jenkins MD PCP - General 05/20/11 04/01/13 [address] [place] [address] documented as of this encounter
--- OUTSIDE RECORDS SUMMARY | 2022-05-24 10:59 | XMS_ITS | Encounter Summary ---
:1955 Author Organization [facility] Address [address] [address] Care Team Providers Name Role Phone Candido Jenkins MD Primary Care Provider Reason for Visit Reason Comments Kidney Transplant Follow-up 02/29/2008 Encounter Details Date Type Department Care Team Description 03/05/2013 Follow-Up Solid Organ Transplant Alejo Garnett Transplanted kidney (Primary Dx); at [facility] MD Thang Need for prophylactic immunotherapy; [facility] Emmanuelle betjoy mellitus; [place] [address] TRANSPLANT SURGERY [phone] [place] [phone] (Wo rk) Social History Tobacco Use Types [...] Sign Reading Time Taken Comments Blood Pressure 133/63 03/05/2013 10:56 AM EDT Pulse 77 03/05/2013 10:56 AM EDT Temperature 36.8 ??C (98.3 ??F) 03/05/2013 10:56 AM EDT Respiratory Rate - - Oxygen Saturation - - Inhaled Oxygen Concentration - - Weight 152.4 kg (336 lb) 03/05/2013 10:56 AM EDT Height 193 cm (6' 4) 03/05/2013 10:56 AM EDT Body Mass Index 40.9 03/05/2013 10:56 AM EDT documented in this encounter Progress Notes Richard Meza MD - 03/05/2013 11:23 AM EDT [facility] Transplant Nephrology Follow Up Leroy Torres [id number] PAST MEDICAL HX: ESRD secondary to presumed diabetic nephropathy s/p donor kidney transplant on 02/29/08 Diabetes Mellitus S/p bilateral BKA Asthma, nasal polyps. Essential tremor. Hypertension. GERD. Hydrocele. History of Present Illness: Doing well overall. Gaining weight and struggling to control his sugars (fasting BS ~ 200's). Gaining weight. BP well controlled at home denies any other symptoms. He is changing his PCP and needs routine health care ROS: Denies fevers, chills, nausea, vomiting, diarrhea, abd pain, chest pain, sob. Medications: Prior to Admission medications Medication Sig Start Date End Date Taking? Authorizing Provider MULTIVITS-MINERALS/FA/LYCOPENE (ONE-A-DAY MEN'S MULTIVITAMIN ORAL) Take by mouth daily. Yes Carla Alejandro MD glucagon, human recombinant, 1 mg/mL injection Inject 1 mL into the muscle as needed. 11/29/12 Yes Donell Hernandez MD fluticasone (FLONASE) 50 mcg/actuation nasal spray 1 spray by Each Nare route as needed. 11/29/12 Yes Donell Hernandez MD Liraglutide (VICTOZA 3-FAZAL) 0.6 mg/0.1 mL (18 mg/3 mL) PnIj Inject 1.8 mg subcutaneously daily. 3 pens = 1 month; 9 pens = 3 months 11/29/12 Yes Donell Hernandez MD Insulin Robinson, Disposable, (BD INSULIN PEN NEEDLE UF SHORT) 31 X 5/16 Ndle by Other route. 1 box= 100 insulin PEN needles. 11/29/12 Yes Donell Hernandez MD insulin NPH human recomb (HUMULIN;NOVOLIN) 100 unit/mL injection Inject 70 Units subcutaneously 2 times daily (before meals). 11/29/12 Yes Donell Hernandez MD insulin regular human (HUMULIN;NOVOLIN) 100 unit/mL vial injection Inject 70 Units subcutaneously 2 times daily. 11/29/12 Yes Donell Hernandez MD Insulin Syringe-Needle U-100 (BD INSULIN SYRINGE ULT-FINE II) 1 mL 31 x 12/07 Syrg 1 Device by [facility].(Non-Drug; Combo Route) route 2 times daily. 11/29/12 Yes Donell Hernandez MD CELLCEPT 250 mg capsule Take 2 capsules by mouth 2 times daily. Kidney Transplant V42.0. Transplant Date; 02-29-08 11/17/12 Yes Karen Chino APRN PROGRAF 1 mg capsule Take 1 capsule by mouth 2 times daily. Kidney Transplant V42.0. Transplant Date; 02-29-08. Discharge Date; 03-11-08 06/05/12 Yes Karen Chino APRN aspirin 81 mg EC tablet Take 81 mg by mouth daily. Yes Carla Alejandro MD Propranolol (INDERAL LA) 160 mg CR capsule Take 1 capsule by mouth 2 times daily. 04/19/12 Yes Angel Boyd MD gabapentin (NEURONTIN) 300 mg capsule Take 2 capsules by mouth 3 times daily. 11/08/11 Yes Margaret Sawyer APRN losartan (COZAAR) 50 mg tablet Take 1 tablet by mouth daily. 06/24/11 Yes Denny Pineda MD CHOLECALCIFEROL, VITAMIN D3, (VITAMIN D-3 ORAL) Take 2,000 Int'l Units by mouth daily. 03/09/12 Yes Carla Alejandro MD folic acid (FOLVITE) 1 mg tablet Take 2 mg by mouth daily. Yes Carla Alejandro MD simvastatin (ZOCOR) 10 mg tablet Take 1 tablet by mouth nightly. 03/24/11 Yes Karen Chino APRN montelukast (SINGULAIR) 10 mg tablet Take 10 mg by mouth daily. Yes Carla Alejandro MD omeprazole (PRILOSEC) 40 mg capsule Take 40 mg by mouth daily. Yes Carla Alejandro MD Allergies / ADRs: Allergies Allergen Reactions ??? Penicillins Anaphylaxis ??? Iftikhar Inhibitors Cough ??? Clindamycin Hcl Rash ??? Allergenic Extracts Birch and Nut Trees, cats, dust, pollen PHYSICAL EXAM: Filed Vitals: 03/05/13 1056 BP: 133/63 Pulse: 77 Temp: 36.8 ??C (98.3 ??F) Gen - AAO x 3 in NAD, obese Skin - No exanthem. HEENT - MMM Chest: Lungs clear to auscultation w/o wheezes/ rhonchi/ crackles. Heart - S1 and S2 clear w/o murmur, gallop, or rub. JVP not elevated. Abd - Soft. + BS. No bruit, non tenderness in graft (LLQ). No organomegaly. Ext - Bilateral BKA, using prosthesis Labs/ Imaging: Lab Results Component Value Date WBC 7.3 03/05/2013 HGB 12.5* 03/05/2013 HCT 38.8* 03/05/2013 MCV 99.5* 03/05/2013 PLATELET 188 03/05/2013 Lab Results Component Value Date CREATININE 1.62* 03/05/2013 BUN 23* 03/05/2013 NA 134* 03/05/2013 K 4.3 03/05/2013 CL 103 03/05/2013 CO2 21* 03/05/2013 Lab Results Component Value Date PTH 107* 03/05/2013 CALCIUM 9.3 03/05/2013 PHOS 2.7 03/05/2013 Lab Results Component Value Date ALT 22 03/05/2013 AST 17 03/05/2013 ALKPHOS 137* 03/05/2013 BILITOT 0.5 03/05/2013 Prot/Cr ratio:0.1 Impression/ Plan: #Transplant Status: Graft stable with Cr ~ 1.6 which is baseline, stable electrolytes #Immunosuppression: Prograf: 1mg twice daily. Cellcept: 500mg twice daily. Prograf level pending today #Hydration Status: Ptnt encouraged to consume no less than 3L/d of non-caffeinated fluid. Minimize/avoid caffeine intake. #Hypertension Management: Adequate control. Continue antihypertensive medications as previously prescribed. #Diabetes Management: Needs to continue tight glycemic control Following endocrinology #Anemia: Hgb improving #Calcium and Phosphorous: Ok, PTH elevated but may take several years post transplant to normalize Continue vitamin D balance reviewed. Levels WNL. #Routine Health Care: Ptnt is strongly encouraged to keep up with all age appropriate, recommended, post-transplant, routine health maintenance tests and screenings. These include, but are not limited to, a yearly flu shot, pneumovax Q5 years, UTD tetanus booster, yearly ophthalmology exam, biannual dental exam (with antibiotic prophylaxis), monthly skin self checks, dermatology exam as advised, Dexascan as advised, colonoscopy Q5 years, yearly PSA/LITZY, and routine physical exam with one's PCP on a yearly basis. Needs Stress test five years after transplant. Also needs to use sun block SPF 50 and above RTC: 1 year. Continue routine, post-txp lab work Q3 months. Suki Rosario MD Nephrology Fellow Pager# [phone] I examined the patient, reviewed all of the above findings and assessment of Dr. Rosario and formulated the recommendations which accurately reflect mine. documented in this encounter Plan of Treatment Upcoming Encounters Date Type Specialty Care Team Description 05/26/2022 Office Visit Otolaryngology Ricardo Panda PA [facility] [address] [place] [address] (Wo rk) 06/02/2022 Infusion Hematology and Oncology 06/16/2022 Infusion Hematology and Oncology 06/21/2022 Office Visit Neurology Tyler Rojas MD [facility] Neurology [place], [place] [phone] (Wo rk) 06/30/2022 Infusion Hematology and Oncology 07/14/2022 Infusion Hematology and Oncology 07/28/2022 Infusion Hematology and Oncology 08/11/2022 Infusion Hematology and Oncology 11/04/2022 Office Visit Rheumatology Dante Freedman PA [facility] RHEUMATOLOGY [place], [place] [address] (Wo rk) Scheduled Orders Name Type Priority Associated Diagnoses Order S chedule BKV Quant Urine Microbiology STAT Transplanted kid quincy Expected: 03/04/2013 Need for prophylactic (Appro ximate), immunotherapy Expires: 08/31 documented as of this encounter Procedures Procedure Name Priority Date/Time Associated Diagnosis Comme nts PTH STAT 03/05/2013 10:05 Transplanted ki dney Results for this AM EDT Need for prophylactic proced ure are in immunotherapy the results section. CMP W/FASTING GLUCOSE STAT 03/05/2013 10:05 Transplan milli kidney Results for this AM EDT Need for prophylactic proced ure are in immunotherapy the results section. DIFFERENTIAL, STAT 03/05/2013 10:05 Results fo r this AUTOMATED AM EDT procedure are i n the results section. TACROLIMUS LEVEL STAT 03/05/2013 10:05 Transplanted k idney Results for this AM EDT Need for prophylactic proced ure are in immunotherapy the results section. IRON AND TIBC STAT 03/05/2013 10:05 Transplanted ki dney Results for this AM EDT Need for prophylactic proced ure are in immunotherapy the results section. 1,25-DIHYDROXYCHOLECA STAT 03/05/2013 10:05 Transplan milli kidney Results for this LCIFEROL AM EDT Need for prophylactic proced ure are in immunotherapy the results section. VITAMIN D, 25-HYDROXY STAT 03/05/2013 10:05 Transplan milli kidney Results for this AM EDT Need for prophylactic proced ure are in immunotherapy the results section. RETICULOCYTE COUNT STAT 03/05/2013 10:05 Transplanted kidney Results for this AM EDT Need for prophylactic proced ure are in immunotherapy the results section. CBC (WITH DIFF) STAT 03/05/2013 10:05 Transplanted ki dney Results for this AM EDT Need for prophylactic proced ure are in immunotherapy the results section. URIC ACID STAT 03/05/2013 10:05 Transplanted ki dney Results for this AM EDT Need for prophylactic proced ure are in immunotherapy the results section. PHOSPHORUS STAT 03/05/2013 10:05 Transplanted ki dney Results for this AM EDT Need for prophylactic proced ure are in immunotherapy the results section. MAGNESIUM STAT 03/05/2013 10:05 Transplanted ki dney Results for this AM EDT Need for prophylactic proced ure are in immunotherapy the results section. HEMOGLOBIN A1C STAT 03/05/2013 10:05 Transplanted ki dney Results for this AM EDT Need for prophylactic proced ure are in immunotherapy the results section. FOLATE, SERUM STAT 03/05/2013 10:05 Transplanted ki dney Results for this AM EDT Need for prophylactic proced ure are in immunotherapy the results section. FERRITIN STAT 03/05/2013 10:05 Transplanted ki dney Results for this AM EDT Need for prophylactic proced ure are in immunotherapy the results section. VITAMIN B12 STAT 03/05/2013 10:05 Transplanted ki dney Results for this AM EDT Need for prophylactic proced ure are in immunotherapy the results section. LIPID PANEL (REFLEX STAT 03/05/2013 10:05 Transplante d kidney Results for this DIRECT LDL) AM EDT Need for prophylactic proced ure are in immunotherapy the results section. BK QUANT URINE RESULT STAT 03/05/2013 10:03 Re sults for this AM EDT procedure are i n the results section. CALCIUM CREATININE STAT 03/05/2013 10:03 Transplanted kidney Results for this RATIO, RANDOM URINE AM EDT Need for prophylactic procedure are in immunotherapy the results section. PROTEIN/CREATININE STAT 03/05/2013 10:03 Transplanted kidney Results for this RATIO, URINE AM EDT Need for prophylactic proced ure are in immunotherapy the results section. PHOSPHORUS, URINE, STAT 03/05/2013 10:03 Transplanted kidney Results for this RANDOM AM EDT Need for prophylactic proced ure are in immunotherapy the results section. CREATININE, URINE, STAT 03/05/2013 10:03 Transplanted kidney Results for this RANDOM AM EDT Need for prophylactic proced ure are in immunotherapy the results section. URINALYSIS WITH STAT 03/05/2013 10:03 Transplanted ki dney Results for this REFLEX CULTURE AM EDT Need for prophylactic proc edure are in immunotherapy the results section. documented in this encounter Results Differential, Automated (03/05/2013 10:05 AM EDT) P athologist Signature Neutrophils % 65.5 34.0 - CERNER 71.0 % MILLENNIUM Neutr Abs (ANC) 4.78 1.50 - CERNER 6.30 MILLENNIUM x10(3)/mcL Lymphocytes % 23.7 19.0 - CERNER 53.0 % MILLENNIUM Lymphocytes Abs 1.7 1.0 - 3.6 CERNER x10(3)/mcL MILLENNIUM Monocytes % 7.1 4.0 - 13.0 CERNER % MILLENNIUM Monocyte Abs 0.5 0.2 - 1.0 CERNER x10(3)/mcL MILLENNIUM Eosinophils % 3.2 0.0 - 7.0 CERNER % MILLENNIUM Eosinophils [...] Location / / Volume Laterality Blood specimen 03/05/2013 10:05 3 (specimen) AM EDT 10:14 AM EDT Alejo Garnett MD HEMATOLOGY ORDERABLES Performing Organization Address City/[facility]/[place] [address] CERNER MILLENNIUM Vitamin B12 (03/05/2013 10:05 AM EDT) athologist Signature Vitamin B-12 668 207 - 974 CERNER pg/mL MILLENNIUM Specimen Anatomical Collection Method Collection Time Receive d Time (Source) Location / / Volume Laterality Blood specimen 03/05/2013 10:05 3 (specimen) AM EDT 10:14 AM EDT Resulting Agency Comment Spec In Lab Alejo Garnett MD CHEMISTRY ORDERABLES Performing Organization Address City/State/[place] [address] CERNER MILLENNIUM (ABNORMAL) Iron and TIBC (03/05/2013 10:05 AM EDT) P athologist Signature Iron 34 (L) 45 - 160 CERNER mcg/dL MILLENNIUM TIBC 259 250 - 450 CERNER mcg/dL MILLENNIUM Iron Saturation 13 (L) 20 - 50 % CERNER MILLENNIUM Specimen Anatomical Collection Method Collection Time Receive d Time (Source) Location / / Volume Laterality Blood specimen 03/05/2013 10:05 3 (specimen) AM EDT 10:14 AM EDT Resulting Agency Comment Spec In Lab Alejo Garnett MD CHEMISTRY ORDERABLES Performing Organization Address City/State/ZIP [place] [address] CERNER MILLENNIUM (ABNORMAL) Hemoglobin A1c (03/05/2013 10:05 AM EDT) Analysis Performed At Patho logis Time Signature Hemoglobin A1C 8.0 (H) 4.3 - 6.1 CERNER % MILLENNIUM Comment: The [place] Diabetes Association (ADA) has stated that HbA1c [...] Care 2013:36;suppl 1:S11 -S66. Est Avg Gluc 183 mg/dL [facility] Comment: eAG equivalents for HbA1c percentages: HbA1c(%) ?eAG(mg/dL) 6.0 ?126 6.5 ?140 7.0 ?154 7.5 ?169 8.0 ?183 8.5 ?197 9.0 ?212 9.5 ?226 10.0 ? 240 Limitations: The eAG calculation has not been validated on women, individuals below 18 years old and above 70 years old, and individuals with hemoglobinopathies. Additional resources are available on city [facility] ADA website: ??http://professional.diabetes.org/gluc osecalculator.aspx Scooby MALDONADO, Nba J, Sydnee R, et al. ??Tr anslating the A1C assay into estimated average glucose values. ??Diabetes Care 2008:31(8):9502-2024. Specimen Anatomical Collection Method Collection Time Receive d Time (Source) Location / / Volume Laterality Blood specimen 03/05/2013 10:05 3 (specimen) AM EDT 10:14 AM EDT Resulting Agency Comment Spec In Lab Alejo Garnett MD CHEMISTRY ORDERABLES Performing Organization Address City/[facility]/ZIP [facility] Phon e Number [address] CERNER MILLENNIUM Folate, serum (03/05/2013 10:05 AM EDT) athologist Signature Folate Lvl >20.0 4.6 - 34.8 CERNER ng/mL [facility] Specimen Anatomical Collection Method Collection Time Receive d Time (Source) Location / / Volume Laterality Blood specimen 03/05/2013 10:05 3 (specimen) AM EDT 10:14 AM EDT Resulting Agency Comment Spec In Lab Alejo Garnett MD CHEMISTRY ORDERABLES Performing Organization Address City/[facility] Phon e Number [address] CERNER MILLENNIUM Ferritin (03/05/2013 10:05 AM EDT) athologist Signature Ferritin 102 30 - 400 CERNER ng/mL MILLENNIUM Comment: Pediatric reference ranges not verified at [facility], interpret with caution. Reference ranges for females greater tristan n 50 years of age approach values for men, i.e., 30-400 ng/mL. Specimen Anatomical Collection Method Collection Time Receive d Time (Source) Location / / Volume Laterality Blood specimen 03/05/2013 10:05 08/12/201 3 (specimen) AM EDT 10:14 AM EDT Resulting Agency Comment Spec In Lab Alejo Garnett MD CHEMISTRY ORDERABLES Performing Organization Address City/[facility]/[place] [address] [facility] (ABNORMAL) VIT D Total Evaluation (03/05/2013 10:05 AM EDT) P athologist Signature 25-OH Vit D 26 (L) 30 - 100 CERNER Total ng/mL [...] considered to be insu fficient or deficient. http://www.kidney.org/professionals/KDOQ I/guidelines_bone/Guide7.htm http://www.nof.org/professionals/clinica l-guidelines The IDS iSYS Vitamin D Immunoassay detec ts both 25-OH Vitamin D2 and 25-OH Vitamin D3, but only a total Vitamin D c oncentration is reported. Specimen Anatomical Collection Method Collection Time Receive d Time (Source) Location / / Volume Laterality Blood specimen 03/05/2013 10:05 3 (specimen) AM EDT 10:14 AM EDT Resulting Agency Comment Spec In Lab Alejo Garnett MD CHEMISTRY ORDERABLES Performing Organization Address City/[facility]/[place] [address] [facility] (ABNORMAL) PTH (03/05/2013 10:05 AM EDT) P athologist Signature PTH 107 (H) 15 - 65 CERNER pg/mL [facility] Specimen Anatomical Collection Method Collection Time Receive d Time (Source) Location / / Volume Laterality Blood specimen 03/05/2013 10:05 3 (specimen) AM EDT 10:14 AM EDT Resulting Agency Comment Spec In Lab Alejo Garnett MD CHEMISTRY ORDERABLES Performing Organization Address City/[facility]/ZIP Code Phon e Number [address] CERNER MILLENNIUM 1,25-dihydroxycholecalciferol (03/05/2013 10:05 AM EDT) P athologist Signature Vit D 1,25 23 18 - 64 CERNER pg/mL MILLENNIUM Comment: Test Performed by: [place] [id number] Laser Operator: Narayan richards III, M.D. Specimen Anatomical Collection Method Collection Time Receive d Time (Source) Location / / Volume Laterality Blood specimen 03/05/2013 10:05 3 1:01 (specimen) AM EDT PM EDT Resulting Agency Comment Spec In Lab Alejo Garnett MD CHEMISTRY ORDERABLES Performing Organization Address City/[facility]/ZIP Code Phon e Number [address] [facility] Tacrolimus level (03/05/2013 10:05 AM EDT) athologist Signature Tacrolimus Lvl 5.1 ng/mL CERNER [facility] Comment: Trough therapeutic: 5-15 ng/mL Specimen Anatomical Collection Method Collection Time Receive d Time (Source) Location / / Volume Laterality Blood specimen 03/05/2013 10:05 3 (specimen) AM EDT 12:20 PM EDT Resulting Agency Comment Spec In Lab Alejo Garnett MD CHEMISTRY ORDERABLES Performing Organization Address City/[facility]/ZIP Code Phon e Number [address] [facility] ([facility]AL[facility] Uric acid (03/05/2013 10:05 AM EDT) athologist Signature Uric Acid 9.1 (H) 3.5 - 8.5 CERNER mg/dL MILLENNIUM Specimen Anatomical Collection Method Collection Time Receive d Time (Source) Location / / Volume Laterality Blood specimen 03/05/2013 10:05 3 (specimen) AM EDT 10:14 AM EDT Resulting Agency Comment Spec In Lab Alejo Garnett MD CHEMISTRY ORDERABLES Performing Organization Address City/[facility]/ZIP Code Phon e Number [address] CERNER MILLENNIUM Phosphorus (03/05/2013 10:05 AM EDT) athologist Signature Phosphorus 2.7 2.5 - 4.5 CERNER mg/dL MILLENNIUM Specimen Anatomical Collection Method Collection Time Receive d Time (Source) Location / / Volume Laterality Blood specimen 03/05/2013 10:05 3 (specimen) AM EDT 10:14 AM EDT Resulting Agency Comment Spec In Lab Alejo Garnett MD CHEMISTRY ORDERABLES Performing Organization Address City/[facility]/ZIP Code Phon e Number [address] CERNER MILLENNIUM Magnesium (03/05/2013 10:05 AM EDT) athologist Signature Magnesium 0.74 0.69 - 1.07 CERNER mmol/L MILLENNIUM Specimen Anatomical Collection Method Collection Time Receive d Time (Source) Location / / Volume Laterality Blood specimen 03/05/2013 10:05 3 (specimen) AM EDT 10:14 AM EDT Resulting Agency Comment Spec In Lab Alejo Garnett MD CHEMISTRY ORDERABLES Performing Organization Address City/[facility]/[place] [address] CERNER MILLENNIUM (ABNORMAL) Lipid panel (fasting) (03/05/2013 10:05 AM EDT) athologist Signature Chol, Total 114 <=199 mg/dL CERNER MILLENNIUM Comment: Recommendations of the NCEP Adult Treatm ent Panel for the following risk cutoff thresholds for the [place] popul[place] n: Desirable: <200 mg/dL Borderline High: 200-239 mg/dL High: > or = 240 mg/dL Triglycerides 228 (H) <=149 mg/dL CERNER MILLENN IUM Comment: Reference Range: Normal triglycerides: ??<150 mg/dL Borderline high: ??150-199 mg/dL High: ??200-499 mg/dL Very high: ??>ep=542 mg/dL SERENA 2001; 285(19):2616-5749 HDL 21 (L) >=40 mg/dL HOLLI MÉNDEZ Comment: Reference range: ??Low HDL: ?? < 40 mg/dL ??Normal: ?40-60 mg/dL ??Desirable: > 60 mg/dL SERENA 2001; 285(19):6087-1635 LDL Cholesterol 47 <=99 mg/dL HOLLI JASON Comment: Reference range: ?? Optimal: ?<100 mg/dL ?? Near Optimal/Above Optimal: ?? 100-1 29 mg/dL ?? Borderline high: ?130-159 mg/dL ?? High: ? 160-189 mg/dL ?? Very high: ?>kq=234 mg/dL SERENA 2001: 285(19):9481-6255 Chol/HDL Ratio 5.4 ratio HOLLI IVEY UM Comment: A Cholesterol to HDL ratio below 4:1 is desirable. ??Studies suggest that increased CAD risk occurs at ratios abov e 5 for females and above 6 for men. ? [place] Heart Association ??(htt p://www.americanheart.org) ? [place] Int Med, 1994; 121:641 ? AM J Med, 1998; 105(1A):48S Specimen Anatomical Collection Method Collection Time Receive d Time (Source) Location / / Volume Laterality Blood specimen 03/05/2013 10:05 3 (specimen) AM EDT 10:14 AM EDT Resulting Agency Comment Spec In Lab Alejo Garnett MD CHEMISTRY ORDERABLES Performing Organization Address City/State/[place] [address] HOLLI MÉNDEZ (ABNORMAL) Reticulocyte Count (03/05/2013 10:05 AM EDT) Patholo gist Method Time Signature Retic Ct % 2.1 0.5 - 2.4 CERNER % MILLENNIUM Retic Ct Abs 0.080 0.027 - CERNER 0.095 MILLENNIUM x10(6)/mc L Immature Retic% 18.2 (H) 2.3 - CERNER 15.9 % MILLENNIUM Reticulated Hgb 31.1 28.5 - CERNER 38.9 pg MILLENNIUM Plat Immature % 1.4 0.0 - 7.4 CERNER % MILLENNIUM Specimen Anatomical Collection Method Collection Time Receive d Time (Source) Location / / Volume Laterality Blood specimen 03/05/2013 10: 3 (specimen) AM EDT 10:14 AM EDT Resulting Agency Comment Spec In Lab Alejo Garnett MD HEMATOLOGY ORDERABLES Performing Organization Address City/State/ZIP Code Phon e Number [place] [id number] CERNER MILLENNIUM (ABNORMAL) CBC (with Diff) (03/05/2013 10:05 AM EDT) P athologist Signature WBC 7.3 4.0 - 10.0 CERNER x10(3)/mcL MILLENNIUM RBC 3.90 (L) 4.63 - CERNER 6.08 MILLENNIUM x10(6)/mcL Hemoglobin 12.5 (L) 13.7 - CERNER 17.5 gm/dL MILLENNIUM Hematocrit 38.8 (L) 40.0 - CERNER 51.0 % MILLENNIUM MCV 99.5 (H) 79.0 - CERNER 92.0 fL MILLENNIUM MCH 32.1 25.6 - CERNER 32.2 pg MILLENNIUM MCHC 32.2 32.0 - CERNER 36.5 gm/dL MILLENNIUM Platelets 188 145 - 370 CERNER x10(3)/mcL MILLENNIUM RDWSD 51.0 (H) 35.0 - CERNER 46.0 fL MILLENNIUM RDWCV 14.3 10.9 - CERNER 14.4 % MILLENNIUM MPV 9.1 9.0 - 12.0 CERNER fL MILLENNIUM Specimen Anatomical Collection Method Collection Time Receive d Time (Source) Location / / Volume Laterality Blood specimen 03/05/2013 10:05 3 (specimen) AM EDT 10:14 AM EDT Resulting Agency Comment Spec In Lab Alejo Garnett MD HEMATOLOGY ORDERABLES Performing Organization Address City/State/ZIP Code Jonah e Galilea OQUENDO [place] [phone] CERNER MILLENNIUM (ABNORMAL) CMP w/fasting Glucose (03/05/2013 10:05 AM EDT) P athologist Signature Glucose 332 (H) 65 - 99 CERNER Fasting mg/dL [...] of Diabetes Mellitus, Position Statement from the [employer]. ??Diabete s Care, Volume 33, Supplement 1, Jul 2009 BUN 23 (H) 10 - 20 mg/dL CERNER MILLENNIU M Creatinine 1.62 (H) 0.80 - 1.50 mg/dL CERNER MILL ENNIUM Comment: Please note that the pediatric reference intervals supplied above were not validated at [facility]. Results from pediatri c patients should be interpreted in conjunction to the patient's age, height and muscle mass. Sodium 134 (L) 135 - 145 mmol/L CERNER OMKAR NIUM Potassium 4.3 3.5 - 5.0 mmol/L CERNER OMKAR NIUM Comment: Please note: ??Patients with WBC >100,00 0 may have falsely elevated Potassium levels. ??For accurate Potassium quantif ication in these patients send serum separator tube (gold top) for subsequent determinations. ??Contact the Clinical Chemistry Laboratory if there are any qu estions. Chloride 103 98 - 107 mmol/L CERNER MILLENN IUM CO2 21 (L) 22 - 31 mmol/L CERNER MILLENNI UM Anion Gap 10 5 - 15 mmol/L CERNER MILLENNIU M Calcium 9.3 8.5 - 10.5 mg/dL CERBANNER OMKAR NIUM Total Protein 7.9 6.4 - 8.3 gm/dL [facility] MIL LENNIUM Albumin 3.4 3.2 - 5.2 gm/dL CERNER MILLENN IUM AST 17 0 - 39 unit/L CERNER MILLENNIU M ALT 22 0 - 55 unit/L CERNER MILLENNIU M Alk Phos 137 (H) 40 - 120 unit/L CERNER MILLENN IUM Total Bilirubin 0.5 0.2 - 1.3 mg/dL CERBANNER M ILLENNIUM Bili, Direct 0.2 0.0 - 0.3 mg/dL CERNER MILL ENNIUM Estimated GFR 44 (L) >=60 CERNER MILLENNIU M Comment: This [...] Location / / Volume Laterality Blood specimen 03/05/2013 10:05 3 (specimen) AM EDT 10:14 AM EDT Resulting Agency Comment Spec In Lab Alejo Garnett MD CHEMISTRY ORDERABLES Performing Organization Address City/State/ZIP Code Phon e Number [place] [phone] CERNER MILLENNIUM BK Quant Urine Result (03/05/2013 10:03 AM EDT) Component Value Ref Test Analysis Performed At [facility] Range Method Time Signature BKV Urine Not Detected CERBANNER Result MILLENNIUM BKV Urine BK Virus Urine Result Interpretation [facility] MILLENNIUM Result: BK Virus Not Detected log concentration: Not detected Assay Range: urine: 3.04-9.04 log copies/mL (1.1x10^3 - 1.1x10^9 copies/mL ) Results are reported as log copies/mL. ??Changes of less than 1.0 log between serial samples may not be clinically significant. Methods: Quantitative real-time polymerase chain reaction (PCR) with of viral DNA isolated from urine was performed using [employer] BKV (ASR) reagents and the [employer] 7500 Fast Real-Time PCR System. In addition, the PCR product sequence is confirmed using physical properties (melt curve analysis). This test was developed and its performance determined by the [facility] Molecular Pathology Laboratory. It has not been [...] high complexity clinical testi ng. Comment: [VERIFIED DATE]03.07.13 Verified By:Cyndi Ferrara (Electronic Signature) Specimen Anatomical Collection Method Collection Time Receive d Time (Source) Location / / Volume Laterality Urine specimen 03/05/2013 10:03 3 (specimen) AM EDT 10:25 AM EDT Resulting Agency Comment Spec In Lab Alejo Garnett MD HEMATOLOGY ORDERABLES Performing Organization Address City/State/ZIP Code Phon e Number [address] CERNER MILLENNIUM Protein/Creatinine Ratio, urine (03/05/2013 10:03 AM EDT) P athologist Signature U Creatinine 48 mg/dL CERNER MILLENNIUM U Protein Ran 6 0 - 12 CERNER mg/dL MILLENNIUM Prot/Cre Ratio 0.1 ratio CERNER MILLENNIUM Specimen Anatomical Collection Method Collection Time Receive d Time (Source) Location / / Volume Laterality Urine specimen 03/05/2013 10:03 3 (specimen) AM EDT 10:08 AM EDT Resulting Agency Comment Spec In Lab Alejo Garnett MD URINE ORDERABLES Performing Organization Address City/State/ZIP Code Phon e Number [address] CERNER MILLENNIUM Phosphorus, urine, random (03/05/2013 10:03 AM EDT) P athologist Signature U Phosphorus 30.7 mg/dL CERNER MILLENNIUM Specimen Anatomical Collection Method Collection Time Receive d Time (Source) Location / / Volume Laterality Urine specimen 03/05/2013 10:03 3 (specimen) AM EDT 10:08 AM EDT Resulting Agency Comment Spec In Lab Alejo Garnett MD URINE ORDERABLES Performing Organization Address City/[facility]/ZIP Code Phon e Number [address] CERNER MILLENNIUM Calcium Creatinine Ratio, random urine (03/05/2013 10:03 AM EDT) P athologist Signature U Calcium 1.0 mg/dL CERNER MILLENNIUM U Creatinine 48 mg/dL CERNER MILLENNIUM Ca/Cre Ratio 0.02 ratio CERNER MILLENNIUM Specimen Anatomical Collection Method Collection Time Receive d Time (Source) Location / / Volume Laterality Urine specimen 03/05/2013 10:03 3 (specimen) AM EDT 10:08 AM EDT Resulting Agency Comment Spec In Lab Alejo Garnett MD URINE ORDERABLES Performing Organization Address City/[facility]/ZIP Code Phon e Number [address] CERNER MILLENNIUM Creatinine, urine, random (03/05/2013 10:03 AM EDT) P athologist Signature U Creatinine 48 mg/dL CERNER MILLENNIUM Specimen Anatomical Collection Method Collection Time Receive d Time (Source) Location / / Volume Laterality Urine specimen 03/05/2013 10:03 3 (specimen) AM EDT 10:08 AM EDT Resulting Agency Comment Spec In Lab Alejo Garnett MD URINE ORDERABLES Performing Organization Address City/[facility]/ZIP Code Phon e Number [address] CERNER MILLENNIUM (ABNORMAL) Urinalysis with microscopic (03/05/2013 10:03 AM EDT) Patholo gist Method Time Signature Glucose UA 300 (A) Negative CERNER mg/dL MILLENNIUM Protein UA Negative mg/dL CERNER MILLENNIUM Bilirubin UA Negative Negative CERNER mg/dL MILLENNIUM Urobilinogen UA Normal mg/dL CERNER MILLENNIUM pH UA 5.0 5.0 - 8.0 CERNER MILLENNIUM Blood UA Negative mg/dL CERNER MILLENNIUM Ketones UA Negative mg/dL CERNER MILLENNIUM Nitrite UA Negative CERNER MILLENNIUM Leukocytes UA Negative mcL CERNER MILLENNIUM Appearance UA Clear Clear CERNER MILLENNIUM Spec [place] UA 1.006 1.002 - CERNER 1.030 MILLENNIUM Color UA Light Yellow CERNER Yellow MILLENNIUM RBC UA Not Present 0 - 3 CERNER MILLENNIUM WBC UA <1 0 - 3 /HPF [facility] M[facility] Specimen Anatomical Collection Method Collection Time Receive d Time (Source) Location / / Volume Laterality Urine specimen 03/05/2013 10:03 3 (specimen) AM EDT 10:08 AM EDT Resulting Agency Comment Spec In Lab Alejo Garnett MD URINE ORDERABLES Performing Organization Address City/State/[place] [address] [facility] documented in this encounter Visit Diagnoses Diagnosis Transplanted kidney - Primary Kidney replaced by transplant Need for prophylactic immunotherapy Diabetes mellitus Type II or unspecified type diabetes fredo litus without mention of complication, not stated as uncontrolled Morbid obesity documented in this encounter Care Teams Forensic Psychiatrist Relationship Specialty Start Date End Date Candido Jenkins MD PCP - General 05/20/11 04/01/13 [address] [place] [address] documented as of this encounter
--- OUTSIDE RECORDS SUMMARY | 2022-05-24 10:59 | XMS_ITS | Encounter Summary ---
:1955 Author Organization [facility] [place] [address] Care Team Providers Name Role Phone Dc Ibanez MD Primary Care Provider Reason for Visit Reason Onset Date Comments Pneumonia 04/10/2013 Encounter Details Date Type Department Care Team Description 04/10/2013 Telephone Solid Organ Transplant at [place] [address] Social History Tobacco Use Types Packs/Day [...] this encounter Miscellaneous Notes Telephone Encounter - Travis Arita RN - 04/10/2013 11:04 AM EDT Message copied by TRAVIS ARITA on TueApr 10, 2013 11:04 AM ------ Message from: JENS SEWELL Created: TueApr 10, 2013 10:32 AM Contact: Mother called; pt was seen in emergency room at [facility] and diagnosed with pneumonia. They gave him Levofloxacin 50g 1qd for 10 days. Is it safe to take? Please call them. Thanks, Ama Returned call to patient's mother and told her that per Drs. Garnett and Ramy the patient should take either Ciprofloxacin or Zpak. She is in agreement and will speak to his doctors that are treating him. I asked that they call back with any other questions or concerns. documented in this encounter Plan of Treatment Upcoming Encounters Date Type Specialty Care Team Description 05/26/2022 Office Visit Otolaryngology Ricardo Panda PA [facility] [address] [place], [place] [address] (Wo rk) 06/02/2022 Infusion Hematology and Oncology 06/16/2022 Infusion Hematology and Oncology 06/21/2022 Office Visit Neurology Tyler Rojas MD [facility] Neurology [place], [place] [phone] (Wo rk) 06/30/2022 Infusion Hematology and Oncology 07/14/2022 Infusion Hematology and Oncology 07/28/2022 Infusion Hematology and Oncology 08/11/2022 Infusion Hematology and Oncology 11/04/2022 Office Visit Rheumatology Dante Freedman PA [facility] RHEUMATOLOGY [place], [place] [address] (Wo rk) documented as of this encounter Visit Diagnoses Not on filedocumented in this encounter Care Teams Meeting Manager Relationship Specialty Start Date End Date Dc Ibanez MD PCP - General 04/02/13 04/01/14 [address] [place] [address] documented as of this encounter
--- OUTSIDE RECORDS SUMMARY | 2022-05-24 10:59 | XMS_ITS | Encounter Summary ---
:1955 Author Organization [facility] [place] [address] Care Team Providers Name Role Phone Candido Jenkins MD Primary Care Provider Reason for Visit Reason Comments Follow-up Right BKA DOS 06/21/12 Encounter Details Date Type Department Care Team Description 02/15/2013 Office Visit Orthopaedics at [facility] Henna Roy Diabetes mellitus with neuro mendy (Primary Dx); [facility] MD Abi Ampmalachi, [place] [address] ORTHOPAEDIC SURGERY [place] [address] Social History Tobacco Use Types Packs/Day Years [...] Sign Reading Time Taken Comments Blood Pressure 136/55 02/15/2013 2:13 PM EDT Pulse 70 02/15/2013 2:13 PM EDT Temperature 36.8 ??C (98.2 ??F) 02/15/2013 2:13 PM EDT Respiratory Rate 20 02/15/2013 2:13 PM EDT Oxygen Saturation - - Inhaled Oxygen Concentration - - Weight 149.7 kg (330 lb) 02/15/2013 2:13 PM EDT Height 193 cm (6' 4) 02/15/2013 2:13 PM EDT Body Mass Index 40.17 02/15/2013 2:13 PM EDT documented in this encounter Progress Notes Henna Roy Jr., MD - 02/15/2013 2:42 PM EDT Case Date: 06/21/2011 BKA Surgeon:HENNA ROY JR, MD - Subjective: I'm doing great, I wear the leg and sometimes I don't even need my cane. The holes healed up finally so, I think everything is going good. Objective: Patient arrived to clinic via wheel chair. The right stump incision is generally well healed. There is some invagination of the most lateral wound but all sites have epithelialized. The stump has diminished in size and in nicely conical but his original socket from 6 months ago in no longerfitting well and he needs 8 ply stockings most of the time. The stump is moving in the socket. Thereis no redness on the skin and no blisters but he is anxious to be more active. He takes the legs offat bedtime and sleeps w/o the shrinkers or sleeves/socks. The left stump is clean, dry and well shaped. He had his HbA1c done 6-8-12 and it was 6.8 continues on Victoza. Plan: Patient encouraged to remove the gel liners twice during the day and set the stumps out in thelight or sun for 10- 20 min. Likewise he was encouraged to change the liners every day so his mothercan keep them clean. It is time for a new socket and he should match the L leg with a gel sleeve with a pin for control. We gave him a prescription for an new right prosthetic limb with a sleeve with pin to improve ability to exercise and walk. Supplies given: NONE We will see him back in 3 months- sooner with any concerns. documented in this encounter Miscellaneous Notes Miscellaneous - Provider, Scanning - 04/20/2013 3:21 PM EDT documented in this encounter Plan of Treatment Upcoming Encounters Date Type Specialty Care Team Description 05/26/2022 Office Visit Otolaryngology Ricardo Panda PA [facility] [address] [place], [place] [address] (Wo rk) 06/02/2022 Infusion Hematology and Oncology 06/16/2022 Infusion Hematology and Oncology 06/21/2022 Office Visit Neurology Tyler Rojas MD [facility] Neurology [place], [place] [phone] (Wo rk) 06/30/2022 Infusion Hematology and Oncology 07/14/2022 Infusion Hematology and Oncology 07/28/2022 Infusion Hematology and Oncology 08/11/2022 Infusion Hematology and Oncology 11/04/2022 Office Visit Rheumatology Dante Freedman PA [facility] RHEUMATOLOGY [place], [place] [address] (Wo rk) documented as of this encounter Visit Diagnoses Diagnosis Diabetes mellitus with neuropathy - Prim tiffany Type II or unspecified type diabetes fredo litus with neurological manifestations, not stated as uncontrolled Amputee, below knee Lower limb amputation, below knee documented in this encounter Care Teams Party Planner Relationship Specialty Start Date End Date Candido Jenkins MD PCP - General 05/20/11 04/01/13 [address] [place] [address] documented as of this encounter
--- OUTSIDE RECORDS SUMMARY | 2022-05-24 10:59 | XMS_ITS | Encounter Summary ---
:1955 Author Organization [facility] [place] [address] Care Team Providers Name Role Phone Candido Jenkins MD Primary Care Provider Encounter Details Date Type Department Care Team Description 10/23/2012 External Results Solid Organ Luanne Blakely kidney; Transplant at [facility] Monica B [place] for [place] [phone] Social History Tobacco Use Types Packs/Day Years [...] Ricardo Panda PA [facility] er [address] [place] [address] (Wo rk) 06/02/2022 Infusion Hematology and Oncology 06/16/2022 Infusion Hematology and Oncology 06/21/2022 Office Visit Neurology Tyler Rojas MD [facility] Dr [place], [place] [phone] (Wo rk) 06/30/2022 Infusion Hematology and Oncology 07/14/2022 Infusion Hematology and Oncology 07/28/2022 Infusion Hematology and Oncology 08/11/2022 Infusion Hematology and Oncology 11/04/2022 Office Visit Rheumatology Dante Freedman PA [facility] RHEUMATOLOGY [place], [place] [address] (Wo rk) documented as of this encounter Procedures Procedure Name Priority Date/Time Associated Diagnosis Comme nts DH AMB TRANSPLANT FOLLOW UP Routine 10/17/2012 Martins splanted kidney LABS EXTERNAL RESULTS PANEL Need for prop hylactic immunotherapy documented in this encounter Results Transplant: Follow up lab request - EXTERNAL collections (10/17/2012) P athologist Signature WBC Hemoglobin 13.5 - 17.5 Hematocrit 41.0 - 53.0 Amylase 25 - 110 Lipase 0 - 53 BUN Creatinine Tacrolimus Lvl ABORh Type Narrative This result has an attachment that is no t available. Alejo Garnett MD CHEMISTRY ORDERABLES documented in this encounter Visit Diagnoses Diagnosis Transplanted kidney Kidney replaced by transplant Need for prophylactic immunotherapy documented in this encounter Care Teams Galvanizing Pot Runner Relationship Specialty Start Date End Date Candido Jenkins MD PCP - General 05/20/11 04/01/13 [address] [place] [address] documented as of this encounter
--- OUTSIDE RECORDS SUMMARY | 2022-05-24 10:59 | XMS_ITS | Encounter Summary ---
:1955 Author Organization [facility] [place] [address] Care Team Providers Name Role Phone Candido Jenkins MD Primary Care Provider Reason for Visit Reason Onset Date Comments Medication Refill 04/19/2012 Encounter Details Date Type Department Care Team Description 04/19/2012 Refill Solid Organ Transplant Karen Chino, Transplanted kidney at [facility]OB [facility]OSS (Primary Dx) [facility] [place] [address] TRANSPLANT SURGERY [phone] [place], [place] [address] (Wo rk) Social History Tobacco [...] Ricardo Panda PA [facility] [address] [place], [place] [address] (Wo rk) 06/02/2022 Infusion Hematology and Oncology 06/16/2022 Infusion Hematology and Oncology 06/21/2022 Office Visit Neurology Tyler Rojas MD [facility] er Neurology [place], [place] [phone] (Wo rk) 06/30/2022 Infusion Hematology and Oncology 07/14/2022 Infusion Hematology and Oncology 07/28/2022 Infusion Hematology and Oncology 08/11/2022 Infusion Hematology and Oncology 11/04/2022 Office Visit Rheumatology Dante Freedman PA [facility] RHEUMATOLOGY [place], [place] [address] (Wo rk) documented as of this encounter Visit Diagnoses Diagnosis Transplanted kidney - Primary Kidney replaced by transplant documented in this encounter Care Teams Warehouse Administrative Assistant Relationship Specialty Start Date End Date Candido Jenkins MD PCP - General 05/20/11 04/01/13 [address] [place] [address] documented as of this encounter
--- OUTSIDE RECORDS SUMMARY | 2022-05-24 10:59 | XMS_ITS | Encounter Summary ---
:1955 Author Organization [facility] Address [facility] [place] [address] Care Team Providers Name Role Phone Candido Jenkins MD Primary Care Provider Encounter Details Date Type Department Care Team Description 04/19/2012 [place]Up [place] [facility] Angel Boyd MD Tremor, essential [facility] (Pr imary Dx) [place] [address] NEUROLOGY DEPT. [phone] [place] [id number] (Wo rk) Social History Tobacco Use Types [...] Sign Reading Time Taken Comments Blood Pressure 131/56 04/19/2012 11:19 AM EDT Pulse 62 04/19/2012 11:19 AM EDT Temperature - - Respiratory Rate - - Oxygen Saturation - - Inhaled Oxygen Concentration - - Weight 140.6 kg (310 lb) 04/19/2012 11:19 AM EDT Height 193 cm (6' 4) 04/19/2012 11:19 AM EDT Body Mass Index 37.73 04/19/2012 11:19 AM EDT documented in this encounter Progress Notes Angel Boyd MD - 04/19/2012 11:50 AM EDT Copy: Candido Jenkins M.D. [facility] [address] [place] [address] I saw Leroy Torres today in follow up in the company of his . He was here for a followup visit with the orthopaedist regarding his right below-knee amputation, which seems to be healing well. The tremor, for which I am treating with propranolol SR 160 twice daily is under good control. There is slight tremor with sustained posture and action. It is more prominent on the left than the right and he is right-handed, but the amplitude and severity of the tremor are much improved and certainly to the point that he is no longer having limitation of his ability to write or eat as he had been previously. Once again, we reviewed available options, respective benefits and drawbacks of treatment and so forth. Fifteen minutes of our 25-minute visit were in supportive counseling and therapeutic planning. We will check in on him in six months or so. documented in this encounter Plan of Treatment Upcoming Encounters Date Type Specialty Care Team Description 05/26/2022 Office Visit Otolaryngology Ricardo Panda PA [facility] [place] [address] (Wo gregg) 06/02/2022 Infusion Hematology and Oncology 06/16/2022 Infusion Hematology and Oncology 06/21/2022 Office Visit Neurology Tyler Rojas MD [facility] Neu[place], [place] [phone] (Wo gregg) 06/30/2022 Infusion Hematology and Oncology 07/14/2022 Infusion Hematology and Oncology 07/28/2022 Infusion Hematology and Oncology 08/11/2022 Infusion Hematology and Oncology 11/04/2022 Office Visit Rheumatology Dante Freedman PA [facility] RHEUMATOLOGY [place], [place] [address] (Wo rk) documented as of this encounter Visit Diagnoses Diagnosis Tremor, essential - Primary Essential and other specified forms of t remor documented in this encounter Care Teams Gynaecological Oncologist Relationship Specialty Start Date End Date Candido Jenkins MD PCP - General 05/20/11 04/01/13 [address] [place] [address] documented as of this encounter
--- OUTSIDE RECORDS SUMMARY | 2022-05-24 10:59 | XMS_ITS | Encounter Summary ---
:1955 Author Organization [facility] [place] [address] Care Team Providers Name Role Phone Candido Jenkins MD Primary Care Provider Encounter Details Date Type Department Care Team Description 02/23/2012 Follow-Up Solid Organ Transplant Karen Chino APRN [facility] [place] [address] Transplanted kidney; at [facility] Candido Jenkins MD [address] [place] [address] [phone] Need for prophylactic immunotherapy; [facility] [place] [phone] Social History Tobacco Use Types Packs/Day Years Used Date Former Smoker Cigarettes 2 20 Quit: 01/19/19 93 Smokeless Tobacco: Never Used Alcohol Use Standard Drinks/Week Comments No 0 (1 standard drink = 0.6 oz pure alcoho l) Sex Assigned at Date Recorded Not on file documented as of this encounter Last Filed Vital Signs Vital Sign Reading Time Taken Comments Blood Pressure 129/58 02/23/2012 10:33 AM EDT Pulse 78 02/23/2012 10:33 AM EDT Temperature - - Respiratory Rate 18 02/23/2012 10:33 AM EDT Oxygen Saturation - - Inhaled Oxygen Concentration - - Weight 141.1 kg (311 lb) 02/23/2012 10:33 AM EDT Height - - Body Mass Index 37.86 11/08/2011 11:30 AM EDT documented in this encounter Progress Notes Karen Chino, SERVER SECURITY ADMINISTRATOR - 02/24/2012 4:17 PM EDT Subjective: Patient ID: Leroy Torres is a 56 y.o. male s/p donor kidney transplant on 02/29/08. 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 HPI Comments: Leroy returns to clinic for routine, post-txp f/u. He is accompanied to today's clinic visit by his mother and his sister, both of whom are quite supportive of him and his post-txp care. Since last visit, ptemil has had a right BKA and is currently waiting to be fitted for a prosthesis. He is also in the midst of a course of doxycycline which his PCP started him on for the treatment of an infected abscess in his left axilla. Ptnt reports that the antibiotics seem to be helping. He denies any fevers, or increased pain/swelling in the area. Leroy reports taking all medications as prescribed and on a consistent basis. He states that he is consuming ~3L/d of non-caffeinated fluids predominantly consisting of water, decaf coffee, and caff-free diet Pepsi. He avoids caffeine intake. Appetite and activity level are good. He denies any problems with urination. Ptnt reports that blood sugar control remains a challenge for him. This has likely been exacerbated by surgery and infections in past year. Recommended Routine Health Maintenance Visits and Screenings: Routine PE with PCP: Ptnt cannot recall when he last had a physical with Dr. Jenkins. Ptnt encouragedto schedule an appt with him at this time - perhaps when he goes for f/u of left axilla abscess. Seasonal Flu Vaccine: 2010 as per ptnt report. Pneumovax Vaccine: 02/23/12 (given at today's clinic visit). Eye Exam: 01/2012. No issues reported. Dental Exam: Dermatology Exam: Self skin checks. No issues reported. Sunscreen use (SPF 50+) strongly encouraged. DEXAscan: No recent scan on record. Ptnt to f/u with his PCP regarding this. If no bone density testwithin the last 2 years, one is recommended at this time. Colonoscopy: Last on record = 1998 (WNL). Due again now. Ptnt to f/u with his PCP regarding the scheduling of this. PSA/LITZY: Due at time of next physical exam. Patient Active Problem List Diagnoses Code ??? Amputee, below knee, L V49.75M ??? 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ifestations 250.40D ??? End stage renal disease 585.6 ??? Diabetes mellitus with neuropathy 250.60DQ ??? Charcot's arthropathy, diabetic, R 250.60HA ??? Injury, other and unspecified, unspecified site 959.9 ??? Tremor, essential 333.1W ??? S/P BKA (below knee amputation) - right lower extremity V49.75D ??? Sensorineural hearing loss, bilateral 389.18 ??? Delayed wound healing 879.9AS Review of Systems Constitutional: Negative for fever, chills, activity change, appetite change, fatigue and unexpectedweight change. HENT: Negative. Eyes: Negative. Respiratory: Negative for cough, chest tightness and shortness of breath. Cardiovascular: Negative for chest pain, palpitations and leg swelling. Gastrointestinal: Negative for nausea, vomiting, abdominal pain, diarrhea, constipation and blood instool. Genitourinary: Negative for dysuria, urgency, frequency, hematuria, decreased urine volume and difficulty urinating. Musculoskeletal: R BKA Skin: Positive for wound. Left axilla abscess currently being treated with doxycycline. Neurological: Negative for dizziness, tremors and headaches. Psychiatric/Behavioral: Negative. Objective: BP 129/58 Pulse 78 Resp 18 Wt 141.069 kg (311 lb) Physical Exam Vitals reviewed. Constitutional: He is oriented to person, place, and time. He appears well- developed and well-nourished. No distress. Pleasant, talkative, large statured, well-appearing 56yo male in [facility]. HENT: Head: Normocephalic and atraumatic. Eyes: Conjunctivae and EOM are normal. Pupils are equal, round, and reactive to light. No scleral icterus. Neck: Normal range of motion. Neck supple. No JVD present. No thyromegaly present. Cardiovascular: Normal rate and regular rhythm. Pulmonary/Chest: Effort normal and breath sounds normal. No respiratory distress. Abdominal: Soft. Bowel sounds are normal. He exhibits no distension. No tenderness. He has no rebound and no guarding. No bruits auscultated over graft. Musculoskeletal: He exhibits no edema. R BKA. Ptnt is waiting for prosthesis. Neurological: He is alert and oriented to person, place, and time. Skin: Skin is warm and dry. No rash noted. He is not diaphoretic. Left axilla abscess appears to be healing well. No erythema of surrounding skin, no swelling, no increased warmth to touch. Minimal serous drainage seen on bandage. New sterile bandage placed. Psychiatric: He has a normal mood and affect. His behavior is normal. Judgment and thought content normal. Recent Results (from the past 72 hour(s)) PROTEIN, URINE, 24 HOUR Component Value Range ? ? U24 Prot Conc 7 <=80 (mg/dL) ? ? U24 Prot Calc 0.22 (*) <=0.15 (gm/24hr) CREATININE CLEARANCE, URINE , 24 HOUR Component Value Range ??? Creat Clearance 87 (*) 90 - 139 (mL/min) ??? U24 Creat Conc 73 (mg/dL) ??? U24 Creat Calc 2.34 (*) 0.80 - 1.90 (gm/24hr) CREATININE, URINE, 24 HOUR Component Value Range ??? U24 Creat Conc 73 (mg/dL) ??? U24 Creat Calc 2.34 (*) 0.80 - 1.90 (gm/24hr) CALCIUM, URINE, 24 HOUR Component Value Range ? ? U24 Ca Conc <0.2 (mg/dL) ? ? U24 Ca Calc <6.4 (*) 50.0 - 300.0 (mg/24hr) PHOSPHORUS, URINE, 24 HOUR Component Value Range ??? U24 Phos Conc 46.6 (mg/dL) ??? U24 Phos Calc 1.5 (*) 0.4 - 1.3 (gm/24hr) URIC ACID, URINE, 24 HOUR Component Value Range ??? U24 Uric Conc 20.6 (mg/dL) ??? U24 Uric Calc 0.66 0.25 - 0.80 (gm/24hr) U24 HRS AND VOLUME Component Value Range ??? Hours Collected 24 (hour(s)) ??? Urine TV (ml) 3200 (mL) CMP W/FASTING GLUCOSE Component Value Range ??? Glucose Fasting 210 (*) 65 - 99 (mg/dL) ??? BUN 34 (*) 10 - 20 (mg/dL) ??? Creatinine 1.86 (*) 0.80 - 1.50 (mg/dL) ??? Sodium 137 135 - 145 (mmol/L) ??? Potassium 4.3 3.5 - 5.0 (mmol/L) ??? Chloride 105 98 - 107 (mmol/L) ??? CO2 23 22 - 31 (mmol/L) ??? Anion Gap 9 5 - 15 (mmol/L) ??? Calcium 9.4 8.5 - 10.5 (mg/dL) ??? Total Protein 7.8 6.4 - 8.3 (gm/dL) ??? Albumin 3.5 3.2 - 5.2 (gm/dL) ??? AST 15 0 - 39 (unit/L) ??? ALT 15 0 - 55 (unit/L) ??? Alk Phos 110 40 - 120 (unit/L) ??? Total Bilirubin 0.3 0.2 - 1.3 (mg/dL) ??? Bili, Direct 0.1 0.0 - 0.3 (mg/dL) ? ? Estimated GFR 38 (*) >=60 CBC (WITH DIFF) Component Value Range ??? WBC 5.2 4.0 - 10.0 (x10(3)/mcL) ??? RBC 3.91 (*) 4.63 - 6.08 (x10(6)/mcL) ??? Hemoglobin 12.1 (*) 13.7 - 17.5 (gm/dL) ??? Hematocrit 37.8 (*) 40.0 - 51.0 (%) ??? MCV 96.7 (*) 79.0 - 92.0 (fL) ??? MCH 30.9 25.6 - 32.2 (pg) ??? MCHC 32.0 32.0 - 36.5 (gm/dL) ??? Platelets 199 145 - 370 (x10(3)/mcL) ??? RDWSD 49.7 (*) 35.0 - 46.0 (fL) ??? RDWCV 14.1 10.9 - 14.4 (%) ??? MPV 8.8 (*) 9.0 - 12.0 (fL) RETICULOCYTE COUNT Component Value Range ??? Retic Ct % 1.9 0.5 - 2.4 (%) ??? Retic Ct Abs 0.070 0.027 - 0.095 (x10(6)/mcL) ??? Immature Retic% 21.0 (*) 2.3 - 15.9 (%) ??? Reticulated Hgb 28.6 28.5 - 38.9 (pg) ??? Plat Immature % 1.3 0.0 - 7.4 (%) LIPID PANEL (FASTING) Component Value Range ? ? Chol, Total 107 <=199 (mg/dL) ? ? Triglycerides 209 (*) <=149 (mg/dL) ? ? HDL 18 (*) >=40 (mg/dL) ? ? LDL Cholesterol 47 <=99 (mg/dL) ??? Chol/HDL Ratio 5.9 (ratio) MAGNESIUM Component Value Range ??? Magnesium 0.73 0.69 - 1.07 (mmol/L) PHOSPHORUS Component Value Range ??? Phosphorus 3.1 2.5 - 4.5 (mg/dL) URIC ACID Component Value Range ??? Uric Acid 9.3 (*) 3.5 - 8.5 (mg/dL) TACROLIMUS LEVEL Component Value Range ??? Tacrolimus Lvl 5.2 (ng/mL) PTH Component Value Range ??? PTH 90 (*) 15 - 65 (pg/mL) VIT D TOTAL EVALUATION Component Value Range ??? 25-OH Vit D Total 20 (*) 30 - 100 (ng/mL) FERRITIN Component Value Range ??? Ferritin 199 30 - 400 (ng/mL) FOLATE, SERUM Component Value Range ? ? Folate Lvl >20.0 4.6 - 34.8 (ng/mL) HEMOGLOBIN A1C Component Value Range ??? Hemoglobin A1C 8.1 (*) 4.3 - 6.1 (%) ??? Est Avg Gluc 186 (mg/dL) IRON AND TIBC Component Value Range ??? Iron 45 45 - 160 (mcg/dL) ??? TIBC 229 (*) 250 - 450 (mcg/dL) ??? Iron Saturation 20 20 - 50 (%) VITAMIN B12 Component Value Range ??? Vitamin B-12 625 207 - 974 (pg/mL) DIFFERENTIAL, AUTOMATED Component Value Range ??? Neutrophils % 55.4 34.0 - 71.0 (%) ??? Neutr Abs (ANC) 2.89 1.50 - 6.30 (x10(3)/mcL) ??? Lymphocytes % 24.0 19.0 - 53.0 (%) ??? Lymphocytes Abs 1.2 1.0 - 3.6 (x10(3)/mcL) ??? Monocytes % 13.6 (*) 4.0 - 13.0 (%) ??? Monocyte Abs 0.7 0.2 - 1.0 (x10(3)/mcL) ??? Eosinophils % 5.8 0.0 - 7.0 (%) ??? Eosinophils Abs 0.3 0.0 - 0.5 (x10(3)/mcL) ??? Basophils % 1.0 0.0 - 2.0 (%) ??? Basophils Abs 0.0 0.0 - 0.2 (x10(3)/mcL) ??? Immature Gran % 0.20 0.00 - 0.66 (%) ??? Courtney Gran Abs 0.01 0.00 - 0.05 (x10(3)/mcL) URINALYSIS WITH MICROSCOPIC Component Value Range ??? Glucose UA Negative Negative (mg/dL) ??? Protein UA Negative (mg/dL) ??? Bilirubin UA Negative Negative (mg/dL) ??? Urobilinogen UA Normal (mg/dL) ??? pH UA 5.0 5.0 - 8.0 ??? Blood UA Negative (mg/dL) ??? Ketones UA Negative (mg/dL) ??? Nitrite UA Negative ??? Leukocytes UA Negative (mcL) ??? Appearance UA Clear Clear ??? Spec [place] UA 1.011 1.002 - 1.030 ??? Color UA Yellow Yellow ? ? RBC UA <1 0 - 3 (/HPF) ??? WBC UA 1 0 - 3 (/HPF) CALCIUM CREATININE RATIO, RANDOM URINE Component Value Range ??? U Calcium 0.3 (mg/dL) ??? U Creatinine 98 (mg/dL) ? ? Ca/Cre Ratio <0.01 (ratio) PHOSPHORUS, URINE, RANDOM Component Value Range ??? U Phosphorus 64.2 (mg/dL) PROTEIN/CREATININE RATIO, URINE Component Value Range ??? U Creatinine 98 (mg/dL) ??? U Protein Ran 12 0 - 12 (mg/dL) ??? Prot/Cre Ratio 0.1 (ratio) Assessment and Plan: Post-transplant Status: Mr. Torres is 4 years s/p kidney transplant and maintaining stable graft function. Today's serum Cr = 1.86 which is slightly elevated above his baseline Cr of 1.6. This upward trend is attributed to inadequate hydration status and hyperglycemia. Immunosuppression: Prograf: 1mg twice daily. Cellcept: 500mg twice daily. Prednisone: None. Rapamune: None. Hydration Status: Ptnt encouraged to consume no less than 3L/d of non- caffeinated fluid. Minimize/avoid caffeine intake. Hypertension Management: Adequate control. Continue antihypertensive medications as previously prescribed. Hyperlipidemia Management: Today's lipid panel shows TC and LDL levels WNL. HDL level is low (18!). TG level elevated (209). Heart healthy diet, weight loss, improved glycemic control, and routine cardiovascular exercise, as able, is encouraged. Continue Zocor 10mg each evening. Diabetes Management: In need of tighter glycemic control as evidenced by today's A1C = 8.1 and RBS =210. Ptnt to continue insulin regiment as currently prescribed and to continue routine f/u with Dr. Hernandez and [facility] endocrinology. Ptnt is next d/t see Dr. Hernandez on 03/17/12. Anemia: H&H below normal but stable. Serum folate, B12, and iron levels WNL. No tx at this time.Continue to monitor with routine, post-txp labs. Calcium and Phosphorous balance reviewed. Levels WNL. Magnesium balance reviewed. Level WNL. Routine Health Care: Ptnt is strongly encouraged to [...] with one's PCP on a yearly basis. Pharmacy needs: Reviewed. No concerns at this time. RTC: 1 year. Continue routine, post-txp lab work Q3 months. documented in this encounter Plan of Treatment Upcoming Encounters Date Type Specialty Care Team Description 05/26/2022 Office Visit Otolaryngology Ricardo Panda PA [facility] [place] [address] (Wo rk) 06/02/2022 Infusion Hematology and Oncology 06/16/2022 Infusion Hematology and Oncology 06/21/2022 Office Visit Neurology Tyler Rojas MD [facility] Neurology [place], [place] [phone] (Wo rk) 06/30/2022 Infusion Hematology and Oncology 07/14/2022 Infusion Hematology and Oncology 07/28/2022 Infusion Hematology and Oncology 08/11/2022 Infusion Hematology and Oncology 11/04/2022 Office Visit Rheumatology Dante Freedman PA [facility] [place], [place] [address] (Wo rk) documented as of this encounter Procedures Procedure Name Priority Date/Time Associated Diagnosis Comme nts BK QUANT URINE RESULT STAT 02/23/2012 10:05 Re sults for this AM EDT procedure are i n the results section. CALCIUM CREATININE STAT 02/23/2012 10:05 Transplanted kidney Results for this RATIO, RANDOM URINE AM EDT Need for prophylactic procedure are in immunotherapy the results section. PROTEIN/CREATININE STAT 02/23/2012 10:05 Transplanted kidney Results for this RATIO, URINE AM EDT Need for prophylactic proced ure are in immunotherapy the results section. PHOSPHORUS, URINE, STAT 02/23/2012 10:05 Transplanted kidney Results for this RANDOM AM EDT Need for prophylactic proced ure are in immunotherapy the results section. URINALYSIS WITH STAT 02/23/2012 10:05 Transplanted ki dney Results for this REFLEX CULTURE AM EDT Need for prophylactic proc edure are in immunotherapy the results section. PTH STAT 02/23/2012 9:53 Transplanted kid [place] Results for this AM EDT Need for prophylactic proced ure are in immunotherapy the results section. CMP W/FASTING GLUCOSE STAT 02/23/2012 9:53 Transplant ed kidney Results for this AM EDT Need for prophylactic proced ure are in immunotherapy the results section. DIFFERENTIAL, STAT 02/23/2012 9:53 Results for this AUTOMATED AM EDT procedure are i n the results section. TACROLIMUS LEVEL STAT 02/23/2012 9:53 Transplanted ki dney Results for this AM EDT Need for prophylactic proced ure are in immunotherapy the results section. IRON AND TIBC STAT 02/23/2012 9:53 Transplanted kid [place] Results for this AM EDT Need for prophylactic proced ure are in immunotherapy the results section. 1,25-DIHYDROXYCHOLECA STAT 02/23/2012 9:53 Transplant ed kidney Results for this LCIFEROL AM EDT Need for prophylactic proced ure are in immunotherapy the results section. VITAMIN D, 25-HYDROXY STAT 02/23/2012 9:53 Transplant ed kidney Results for this AM EDT Need for prophylactic proced ure are in immunotherapy the results section. RETICULOCYTE COUNT STAT 02/23/2012 9:53 Transplanted kidney Results for this AM EDT Need for prophylactic proced ure are in immunotherapy the results section. CBC (WITH DIFF) STAT 02/23/2012 9:53 Transplanted kid [place] Results for this AM EDT Need for prophylactic proced ure are in immunotherapy the results section. URIC ACID STAT 02/23/2012 9:53 Transplanted kid [place] Results for this AM EDT Need for prophylactic proced ure are in immunotherapy the results section. PHOSPHORUS STAT 02/23/2012 9:53 Transplanted kid [place] Results for this AM EDT Need for prophylactic proced ure are in immunotherapy the results section. MAGNESIUM STAT 02/23/2012 9:53 Transplanted kid [place] Results for this AM EDT Need for prophylactic proced ure are in immunotherapy the results section. HEMOGLOBIN A1C STAT 02/23/2012 9:53 Transplanted kid [place] Results for this AM EDT Need for prophylactic proced ure are in immunotherapy the results section. FOLATE, SERUM STAT 02/23/2012 9:53 Transplanted kid [place] Results for this AM EDT Need for prophylactic proced ure are in immunotherapy the results section. FERRITIN STAT 02/23/2012 9:53 Transplanted kid [place] Results for this AM EDT Need for prophylactic proced ure are in immunotherapy the results section. VITAMIN B12 STAT 02/23/2012 9:53 Transplanted kid [place] Results for this AM EDT Need for prophylactic proced ure are in immunotherapy the results section. LIPID PANEL (REFLEX STAT 02/23/2012 9:53 Transplanted kidney Results for this DIRECT LDL) AM EDT Need for prophylactic proced ure are in immunotherapy the results section. U24 HRS AND VOLUME Routine 02/23/2012 7:30 Result s for this AM EDT procedure are i n the results section. URIC ACID, URINE, 24 Routine 02/23/2012 7:30 Transplante d kidney Results for this HOUR AM EDT Need for prophylactic proced ure are in immunotherapy the results section. CALCIUM, URINE, 24 Routine 02/23/2012 7:30 Transplanted kidney Results for this HOUR AM EDT Need for prophylactic proced ure are in immunotherapy the results section. CREATININE, URINE, 24 Routine 02/23/2012 7:30 Transplant ed kidney Results for this HOUR AM EDT Need for prophylactic proced ure are in immunotherapy the results section. PROTEIN, URINE, 24 Routine 02/23/2012 7:30 Transplanted kidney Results for this HOUR AM EDT Need for prophylactic proced ure are in immunotherapy the results section. PHOSPHORUS, URINE, 24 Routine 02/23/2012 7:30 Transplant ed kidney Results for this HOUR AM EDT Need for prophylactic proced ure are in immunotherapy the results section. CREATININE CLEARANCE, Routine 02/23/2012 7:30 Transplant ed kidney Results for this URINE, 24 HOUR AM EDT Need for prophylactic proc edure are in immunotherapy the results section. documented in this encounter Results BK QUANT URINE RESULT (02/23/2012 10:05 AM EDT) Component Value Ref Test Analysis Performed At [facility] Range Method Time Signature BKV Urine Not Detected [facility] Result [facility] BKV Urine BK Virus Urine Result Interpretation [facility] Result: BK Virus Not Detected log concentration: Not detected Assay Range: urine: 3.04-9.04 log copies/mL (1.1x10^3 - 1.1x10^9 copies/mL ) Results are reported as log copies/mL. ??Changes of less than 1.0 log between serial samples may not be clinically significant. Methods: Quantitative real-time polymerase chain reaction (PCR) with of viral DNA isolated from urine was performed using [employer] BKV (ASR) reagents and the [employer] 7500 Fast Real-Time PCR System. In addition, the PCR product sequence is confirmed using physical properties (melt curve analysis). This test was developed and its performance determined by the [facility] Molecular Pathology Laboratory. It has not been [...] high complexity clinical testi ng. Comment: [VERIFIED DATE]02.25.12 Verified By:Gina Clifton (Electronic Signature) Specimen Anatomical Collection Method Collection Time Receive d Time (Source) Location / / Volume Laterality Urine specimen 02/23/2012 10:05 2 3:48 (specimen) AM EDT PM EDT Resulting Agency Comment Spec In Lab Alejo Garnett MD HEMATOLOGY ORDERABLES Performing Organization Address City/[facility]/ZIP Code Phon e Number [address] CERNER MILLENNIUM Protein/Creatinine Ratio, urine (02/23/2012 10:05 AM EDT) P athologist Signature U Creatinine 98 mg/dL CERNER MILLENNIUM U Protein Ran 12 0 - 12 CERNER mg/dL MILLENNIUM Prot/Cre Ratio 0.1 ratio [facility] MILLENNIUM Specimen Anatomical Collection Method Collection Time Receive d Time (Source) Location / / Volume Laterality Urine specimen 02/23/2012 10:05 2 (specimen) AM EDT 10:13 AM EDT Resulting Agency Comment Spec In Lab Alejo Garnett MD URINE ORDERABLES Performing Organization Address City/[facility]/ZIP Code Phon e Number [address] CERNER MILLENNIUM Phosphorus, urine, random (02/23/2012 10:05 AM EDT) P athologist Signature U Phosphorus 64.2 mg/dL [facility] MILLENNIUM Specimen Anatomical Collection Method Collection Time Receive d Time (Source) Location / / Volume Laterality Urine specimen 02/23/2012 10:05 2 (specimen) AM EDT 10:13 AM EDT Resulting Agency Comment Spec In Lab Alejo Garnett MD URINE ORDERABLES Performing Organization Address City/[facility]/ZIP Code Phon e Number [address] [facility] MILLENNIUM Calcium Creatinine Ratio, random urine (02/23/2012 10:05 AM EDT) P athologist Signature U Calcium 0.3 mg/dL [facility] M[facility] U Creatinine 98 mg/dL [facility] MILLENNIUM Ca/Cre Ratio <0.01 ratio [facility] Specimen Anatomical Collection Method Collection Time Receive d Time (Source) Location / / Volume Laterality Urine specimen 02/23/2012 10:05 2 (specimen) AM EDT 10:13 AM EDT Resulting Agency Comment Spec In Lab Alejo Garnett MD URINE ORDERABLES Performing Organization Address City/State/ZIP Code Phon e Number [address] [facility] MILLENNIUM Urinalysis with microscopic (02/23/2012 10:05 AM EDT) Patholo gist Method Time Signature Glucose UA Negative Negative [facility]ERNER mg/dL MILLENNIUM Protein UA Negative mg/dL [facility] Bilirubin UA Negative Negative [facility]ER mg/dL MILLENNIUM Urobilinogen UA Normal mg/dL [facility] MILLENNIUM pH UA 5.0 5.0 - 8.0 [facility] MILLENNIUM Blood UA Negative mg/dL [facility] M[facility] Ketones UA Negative mg/dL [facility] Nitrite UA Negative [facility] Leukocytes UA Negative mcL [facility] MILLENNIUM Appearance UA Clear Clear [facility] M[facility] Spec [place] UA 1.011 1.002 - CERNER 1.030 MILLENNIUM Color UA Yellow Yellow [facility] MILLENNIUM RBC UA <1 0 - 3 /HPF [facility] M[facility] WBC UA 1 0 - 3 /HPF [facility] MILLENNIUM Specimen Anatomical Collection Method Collection Time Receive d Time (Source) Location / / Volume Laterality Urine specimen 02/23/2012 10:05 2 (specimen) AM EDT 10:13 AM EDT Resulting Agency Comment Spec In Lab Alejo Garnett MD URINE ORDERABLES Performing Organization Address City/State/ZIP Code Phon e Number [address] [facility] (ABNORMAL) DIFFERENTIAL, AUTOMATED (02/23/2012 9:53 AM EDT) Patholo gist Method Time Signature Neutrophils % 55.4 34.0 - CERNER 71.0 % MILLENNIUM Neutr Abs (ANC) 2.89 1.50 - CERNER 6.30 MILLENNIUM x10(3)/mc L Lymphocytes % 24.0 19.0 - CERNER 53.0 % MILLENNIUM Lymphocytes Abs 1.2 1.0 - 3.6 CERNER x10(3)/mc MILLENNIUM L Monocytes % 13.6 (H) 4.0 - CERNER 13.0 % MILLENNIUM Monocyte Abs 0.7 0.2 - 1.0 CERNER x10(3)/mc MILLENNIUM L Eosinophils % 5.8 0.0 - 7.0 CERNER % MILLENNIUM Eosinophils Abs 0.3 0.0 - 0.5 [facility] x10(3)/mc MILLENNIUM L Basophils % 1.0 0.0 - 2.0 CERNER [...] Location / / Volume Laterality Blood specimen 02/23/2012 9:53 AM 012 (specimen) EDT 10:00 AM EDT Alejo Garnett MD HEMATOLOGY ORDERABLES Performing Organization Address City/State/[place] [address] CERNER MILLENNIUM Vitamin B12 (02/23/2012 9:53 AM EDT) P athologist Signature Vitamin B-12 625 207 - 974 CERNER pg/mL MILLENNIUM Specimen Anatomical Collection Method Collection Time Receive d Time (Source) Location / / Volume Laterality Blood specimen 02/23/2012 9:53 AM 012 (specimen) EDT 10:00 AM EDT Resulting Agency Comment Spec In Lab Alejo Garnett MD CHEMISTRY ORDERABLES Performing Organization Address City/[facility]/ZIP Code Phon e Number [address] CERNER MILLENNIUM (ABNORMAL) Iron and TIBC (02/23/2012 9:53 AM EDT) Analysis Performed At [facility] Time Signature Iron 45 45 - 160 CERNER mcg/dL MILLENNIUM TIBC 229 (L) 250 - 450 CERNER mcg/dL MILLENNIUM Iron Saturation 20 20 - 50 % CERNER MILLENNIUM Specimen Anatomical Collection Method Collection Time Receive d Time (Source) Location / / Volume Laterality Blood specimen 02/23/2012 9:53 AM 012 (specimen) EDT 10:00 AM EDT Resulting Agency Comment Spec In Lab Alejo Garnett MD CHEMISTRY ORDERABLES Performing Organization Address City/[facility]/ZIP Code Phon e Number [address] CERNER MILLENNIUM (ABNORMAL) Hemoglobin A1c (02/23/2012 9:53 AM EDT) Analysis Performed At [facility] Time Signature Hemoglobin A1C 8.1 (H) 4.3 - 6.1 CERNER % MILLENNIUM Est Avg Gluc 186 mg/dL CERNER MILLENNIUM Comment: eAG equivalents for HbA1c percentages: HbA1c(%) ?eAG(mg/dL) 6.0 ?126 6.5 ?140 7.0 ?154 7.5 ?169 8.0 ?183 8.5 ?197 9.0 ?212 9.5 ?226 10.0 ? 240 Limitations: The eAG calculation has not been validated on women, individuals below 18 years old and above 70 years old, and individuals with hemoglobinopathies. Additional resources are available on [facility] ADA website: ??http://professional.diabetes.org/gluc osecalculator.aspx Reference: Scooby MALDONADO, Nba Gilbert, Sydnee R, et al. ??Tr anslating the A1C assay into estimated average glucose values. ??Diabetes Care 2008:31(8):8093-0730. Specimen Anatomical Collection Method Collection Time Receive d Time (Source) Location / / Volume Laterality Blood specimen 02/23/2012 9:53 AM 012 (specimen) EDT 10:00 AM EDT Resulting Agency Comment Spec In Lab Alejo Garnett MD CHEMISTRY ORDERABLES Performing Organization Address [facility]/[address] CERNER MILLENNIUM Folate, serum (02/23/2012 9:53 AM EDT) athologist Signature Folate Lvl >20.0 4.6 - 34.8 CERNER ng/mL MILLENNIUM Comment: Please note: Serum Folate Reference Rang e update 02/17/2012 1130 AM: New Range: 4.6 to 34.8 ng/ml Old Range: 7.4 to 35.0 ng/ml Specimen Anatomical Collection Method Collection Time Receive d Time (Source) Location / / Volume Laterality Blood specimen 02/23/2012 9:53 AM 012 (specimen) EDT 10:00 AM EDT Resulting Agency Comment Spec In Lab Alejo Garnett MD CHEMISTRY ORDERABLES Performing Organization Address [facility]/[place] [address] CERNER MILLENNIUM Ferritin (02/23/2012 9:53 AM EDT) athologist Signature Ferritin 199 30 - 400 CERNER ng/mL MILLENNIUM Comment: Pediatric reference ranges not verified at [facility], interpret with caution. Reference ranges for females greater tristan n 50 years of age approach values for men, i.e., 30-400 ng/mL. Specimen Anatomical Collection Method Collection Time Receive d Time (Source) Location / / Volume Laterality Blood specimen 02/23/2012 9:53 AM 012 (specimen) EDT 10:00 AM EDT Resulting Agency Comment Spec In Lab Alejo Garnett MD CHEMISTRY ORDERABLES Performing Organization Address City/State/[place] [address] CERNER MILLENNIUM (ABNORMAL) VIT D Total Evaluation (02/23/2012 9:53 AM EDT) athologist Signature 25-OH Vit D 20 (L) 30 - 100 CERNER Total ng/mL [facility] Comment: Deficient <10 ng/mL Insufficient 10 to [...] total Vitamin D c oncentration is reported. Please note, the performing location for this test has changed. ??As of 08/31/2011 the Vitamin D Total, 25 Murdock xy assays are being analyzed by the [facility] Chemistry Laboratory. ??There is NO CHANGE in units. ??Please contact the chemistry laboratory at [phone] with martha [phone]. Specimen Anatomical Collection Method Collection Time Receive d Time (Source) Location / / Volume Laterality Blood specimen 02/23/2012 9:53 AM 012 (specimen) EDT 10:00 AM EDT Resulting Agency Comment Spec In Lab Alejo Garnett MD CHEMISTRY ORDERABLES Performing Organization Address City/[facility]/[place] [address] CERNER MILLENNIUM Vitamin D, dihydroxy 1,25 (02/23/2012 9:53 AM EDT) P athologist Signature Vit D 1,25 23 18 - 64 CERNER pg/mL MILLENNIUM Comment: Test Performed by: [place] [address] Consulting Systems Engineer: Narayan richards III, M.D. Specimen Anatomical Collection Method Collection Time Receive d Time (Source) Location / / Volume Laterality Blood specimen 02/23/2012 9:53 AM 012 2:38 (specimen) EDT PM EDT Resulting Agency Comment Spec In Lab Alejo Garnett MD CHEMISTRY ORDERABLES Performing Organization Address City/[facility]/[place] [address] CERNER MILLENNIUM (ABNORMAL) PTH (02/23/2012 9:53 AM EDT) P athologist Signature PTH 90 (H) 15 - 65 CERNER pg/mL MILLENNIUM Specimen Anatomical Collection Method Collection Time Receive d Time (Source) Location / / Volume Laterality Blood specimen 02/23/2012 9:53 AM 012 (specimen) EDT 10:00 AM EDT Resulting Agency Comment Spec In Lab Alejo Garnett MD CHEMISTRY ORDERABLES Performing Organization Address City/[facility]/[place] [address] CERNER MILLENNIUM Tacrolimus level (02/23/2012 9:53 AM EDT) P athologist Signature Tacrolimus Lvl 5.2 ng/mL CERNER MILLENNIUM Comment: Trough therapeutic: 5-15 ng/mL Specimen Anatomical Collection Method Collection Time Receive d Time (Source) Location / / Volume Laterality Blood specimen 02/23/2012 9:53 AM 012 1:26 (specimen) EDT PM EDT Resulting Agency Comment Spec In Lab Alejo Garnett MD CHEMISTRY ORDERABLES Performing Organization Address City/State/[place] [address] CERNER MILLENNIUM (ABNORMAL) Uric acid (02/23/2012 9:53 AM EDT) P athologist Signature Uric Acid 9.3 (H) 3.5 - 8.5 CERNER mg/dL MILLENNIUM Specimen Anatomical Collection Method Collection Time Receive d Time (Source) Location / / Volume Laterality Blood specimen 02/23/2012 9:53 AM 012 (specimen) EDT 10:00 AM EDT Resulting Agency Comment Spec In Lab Alejo Garnett MD CHEMISTRY ORDERABLES Performing Organization Address City/[facility]/ZIP Code Phon e Number [address] CERNER MILLENNIUM Phosphorus (02/23/2012 9:53 AM EDT) P athologist Signature Phosphorus 3.1 2.5 - 4.5 CERNER mg/dL MILLENNIUM Specimen Anatomical Collection Method Collection Time Receive d Time (Source) Location / / Volume Laterality Blood specimen 02/23/2012 9:53 AM 012 (specimen) EDT 10:00 AM EDT Resulting Agency Comment Spec In Lab Alejo Garnett MD CHEMISTRY ORDERABLES Performing Organization Address City/[facility]/ZIP Code Phon e Number [address] CERNER MILLENNIUM Magnesium (02/23/2012 9:53 AM EDT) P athologist Signature Magnesium 0.73 0.69 - 1.07 CERNER mmol/L MILLENNIUM Specimen Anatomical Collection Method Collection Time Receive d Time (Source) Location / / Volume Laterality Blood specimen 02/23/2012 9:53 AM 012 (specimen) EDT 10:00 AM EDT Resulting Agency Comment Spec In Lab Alejo Garnett MD CHEMISTRY ORDERABLES Performing Organization Address City/State/[place] [address] CERNER MILLENNIUM (ABNORMAL) Lipid panel (fasting) (02/23/2012 9:53 AM EDT) P athologist Signature Chol, Total 107 <=199 mg/dL CERDINH MILLENNIUM Comment: Recommendations of the NCEP Adult Treatm ent Panel for the following risk cutoff thresholds for the [place] popul[place] n: Desirable: <200 mg/dL Borderline High: 200-239 mg/dL High: > or = 240 mg/dL Triglycerides 209 (H) <=149 mg/dL CERDINH DOUGLASENN IUM Comment: Reference Range: Normal triglycerides: ??<150 mg/dL Borderline high: ??150-199 mg/dL High: ??200-499 mg/dL Very high: ??>au=617 mg/dL SERENA 2001; 285(19):4099-3108 HDL 18 (L) >=40 mg/dL HOLLI DOUGLASSHELDONIUM Comment: Reference range: ??Low HDL: ?? < 40 mg/dL ??Normal: ?40-60 mg/dL ??Desirable: > 60 mg/dL SERENA 2001; 285(19):3219-8369 LDL Cholesterol 47 <=99 mg/dL HOLLI OMKAR NIUM Comment: Reference range: ?? Optimal: ?<100 mg/dL ?? Near Optimal/Above Optimal: ?? 100-1 29 mg/dL ?? Borderline high: ?130-159 mg/dL ?? High: ? 160-189 mg/dL ?? Very high: ?>fg=111 mg/dL SERENA 2001: 285(19):2526-0363 Chol/HDL Ratio 5.9 ratio [facility] MILLENNI UM Comment: A Cholesterol to HDL ratio below 4:1 is desirable. ??Studies suggest that increased CAD risk occurs at ratios abov e 5 for females and above 6 for men. ? [place] Heart Association ??(htt p://www.americanheart.org) ? [place]na Int Med, 1994; 121:641 ? AM J Med, 1998; 105(1A):48S Specimen Anatomical Collection Method Collection Time Receive d Time (Source) Location / / Volume Laterality Blood specimen 02/23/2012 9:53 AM 012 (specimen) EDT 10:00 AM EDT Resulting Agency Comment Spec In Lab Alejo Garnett MD CHEMISTRY ORDERABLES Performing Organization Address City/[facility]/ZIP [facility] [place] [address] CERNER MILLENNIUM (ABNORMAL) Reticulocyte Count (02/23/2012 9:53 AM EDT) Patholo gist Method Time Signature Retic Ct % 1.9 0.5 - 2.4 CERNER % MILLENNIUM Retic Ct Abs 0.070 0.027 - CERNER 0.095 MILLENNIUM x10(6)/mc L Immature Retic% 21.0 (H) 2.3 - CERNER 15.9 % MILLENNIUM Reticulated Hgb 28.6 28.5 - CERNER 38.9 pg MILLENNIUM Plat Immature % 1.3 0.0 - 7.4 CERNER % MILLENNIUM Specimen Anatomical Collection Method Collection Time Receive d Time (Source) Location / / Volume Laterality Blood specimen 02/23/2012 9:53 AM 012 (specimen) EDT 10:00 AM EDT Resulting Agency Comment Spec In Lab Alejo Garnett MD HEMATOLOGY ORDERABLES Performing Organization Address City/[facility] [place] [address] CERNER MILLENNIUM (ABNORMAL) CBC (with Diff) (02/23/2012 9:53 AM EDT) P athologist Signature WBC 5.2 4.0 - 10.0 CERNER x10(3)/mcL MILLENNIUM RBC 3.91 (L) 4.63 - CERNER 6.08 MILLENNIUM x10(6)/mcL Hemoglobin 12.1 (L) 13.7 - CERNER 17.5 gm/dL MILLENNIUM Hematocrit 37.8 (L) 40.0 - CERNER 51.0 % MILLENNIUM MCV 96.7 (H) 79.0 - CERNER 92.0 fL MILLENNIUM MCH 30.9 25.6 - CERNER 32.2 pg [facility] MCHC 32.0 32.0 - CERNER 36.5 gm/dL [facility]ILLSUM[facility]UM Platelets 199 145 - 370 CERNER x10(3)/mcL MILLENNIUM RDWSD 49.7 (H) 35.0 - CERNER 46.0 fL [facility] RDWCV 14.1 10.9 - CERNER 14.4 % MILLENNIUM MPV 8.8 (L) 9.0 - 12.0 CERNER fL [facility] Specimen Anatomical Collection Method Collection Time Receive d Time (Source) Location / / Volume Laterality Blood specimen 02/23/2012 9:53 AM 012 (specimen) EDT 10:00 AM EDT Resulting Agency Comment Spec In Lab Alejo Garnett MD HEMATOLOGY ORDERABLES Performing Organization Address City/State/[place] [address] CERNER MILLENNIUM (ABNORMAL) CMP w/fasting Glucose (02/23/2012 9:53 AM EDT) athologist Signature Glucose 210 (H) 65 - 99 CERNER Fasting mg/dL [facility] Comment: ?Fasting* Glucose Interpretive C riteria Normal [...] of Diabetes Mellitus, Position Statement from the [place] Diabetes Association. ??Diabete s Care, Volume 33, Supplement 1, Jul 2009 BUN 34 (H) 10 - 20 mg/dL CERNER MILLENNIU M Creatinine 1.86 (H) 0.80 - 1.50 mg/dL CERNER MILL ENNIUM Comment: Please note that the pediatric reference intervals supplied above were not validated at [facility]. Results from pediatri c patients should be interpreted in conjunction to the patient's age, height and muscle mass. Sodium 137 135 - 145 mmol/L CERNER OMKAR NIUM [...] - 107 mmol/L CERNER MILLENN IUM CO2 23 22 - 31 mmol/L CERNER MILLENNI UM [...] 55 unit/L CERNER MILLENNIU M Alk Phos 110 40 - 120 unit/L CERNER MILLENN IUM Total Bilirubin 0.3 0.2 - 1.3 mg/dL CERNER M ILLENNIUM Bili, Direct 0.1 0.0 - 0.3 mg/dL CERNER MILL ENNIUM Estimated GFR 38 (L) >=60 CERNER MILLENNIU M Comment: The National Kidney Disease Education Pr [...] Location / / Volume Laterality Blood specimen 02/23/2012 9:53 AM 012 (specimen) EDT 10:00 AM EDT Resulting Agency Comment Spec In Lab Alejo Garnett MD CHEMISTRY ORDERABLES Performing Organization Address City/State/[place] [address] HOLLI SamanageIUM U24 HRS AND VOLUME (02/23/2012 7:30 AM EDT) P athologist Signature Hours 24 hour(s) CERNER Collected MILLENNIUM Urine TV (ml) 3200 mL [employer]NER MILLMy Point...ExactlyIUM Specimen Anatomical Collection Method Collection Time Receive d Time (Source) Location / / Volume Laterality Urine specimen 02/23/2012 7:30 AM 012 (specimen) EDT 10:46 AM EDT Resulting Agency Comment Spec In Lab Alejo Garnett MD CHEMISTRY ORDERABLES Performing Organization Address City/State/ZIP Code Phon e Number [address] CERNER MILLENNIUM Uric acid, urine, 24 hour (02/23/2012 7:30 AM EDT) athologist Signature U24 Uric Conc 20.6 mg/dL CERNER MILLENNIUM U24 Uric Calc 0.66 0.25 - CERNER 0.80 MILLENNIUM gm/24hr Specimen Anatomical Collection Method Collection Time Receive d Time (Source) Location / / Volume Laterality Urine specimen 02/23/2012 7:30 AM 012 (specimen) EDT 10:46 AM EDT Resulting Agency Comment Spec In Lab Alejo Garnett MD URINE ORDERABLES Performing Organization Address City/State/ZIP Code Phon e Number [address] CERNER MILLENNIUM (ABNORMAL) Phosphorus, urine, 24 hour (02/23/2012 7:30 AM EDT) athologist Signature U24 Phos Conc 46.6 mg/dL CERNER MILLENNIUM U24 Phos Calc 1.5 (H) 0.4 - 1.3 CERNER gm/24hr MILLENNIUM Specimen Anatomical Collection Method Collection Time Receive d Time (Source) Location / / Volume Laterality Urine specimen 02/23/2012 7:30 AM 012 (specimen) EDT 10:46 AM EDT Resulting Agency Comment Spec In Lab Alejo Garnett MD URINE ORDERABLES Performing Organization Address City/State/ZIP Code Phon e Number [address] CERNER MILLENNIUM (ABNORMAL) Calcium, urine, 24 hour (02/23/2012 7:30 AM EDT) athologist Signature U24 Ca Conc <0.2 mg/dL CERNER MILLENNIUM U24 Ca Calc <6.4 (L) 50.0 - CERNER 300.0 MILLENNIUM mg/24hr Comment: Reference Range: 50.0-300.0 mg/ 24 hour based on diet. Specimen Anatomical Collection Method Collection Time Receive d Time (Source) Location / / Volume Laterality Urine specimen 02/23/2012 7:30 AM 012 (specimen) EDT 10:46 AM EDT Resulting Agency Comment Spec In Lab Alejo Garnett MD URINE ORDERABLES Performing Organization Address City/State/[place] [address] CERNER MILLENNIUM (ABNORMAL) Creatinine, urine, 24 hour (02/23/2012 7:30 AM EDT) Analysis Performed At Patho logist Time Signature U24 Creat Conc 73 mg/dL CERNER MILLENNIUM U24 Creat Calc 2.34 (H) 0.80 - CERNER 1.90 MILLENNIUM gm/24hr Specimen Anatomical Collection Method Collection Time Receive d Time (Source) Location / / Volume Laterality Urine specimen 02/23/2012 7:30 AM 012 (specimen) EDT 10:46 AM EDT Resulting Agency Comment Spec In Lab Alejo Garnett MD URINE ORDERABLES Performing Organization Address City/[facility]/[place] [address] CERNER MILLENNIUM (ABNORMAL) Creatinine Clearance, urine , 24 hour (02/23/2012 7:30 AM EDT) Analysis Performed At Patho logist Time Signature Creat 87 (L) 90 - 139 CERNER Clearance mL/min MILLENNIUM U24 Creat Conc 73 mg/dL CERNER MILLENNIUM U24 Creat Calc 2.34 (H) 0.80 - CERNER 1.90 MILLENNIUM gm/24hr Specimen Anatomical Collection Method Collection Time Receive d Time (Source) Location / / Volume Laterality Urine specimen 02/23/2012 7:30 AM 012 (specimen) EDT 10:46 AM EDT Resulting Agency Comment Spec In Lab Alejo Garnett MD URINE ORDERABLES Performing Organization Address City/State/[place] [address] CERNER MILLENNIUM (ABNORMAL) Protein, urine, 24 hour (02/23/2012 7:30 AM EDT) Analysis Performed At Patho logist Time Signature U24 Prot Conc 7 <=80 mg/dL CERNER MILLENNIUM U24 Prot Calc 0.22 (H) <=0.15 CERNER gm/24hr MILLENNIUM Specimen Anatomical Collection Method Collection Time Receive d Time (Source) Location / / Volume Laterality Urine specimen 02/23/2012 7:30 AM 012 (specimen) EDT 10:46 AM EDT Resulting Agency Comment Spec In Lab Alejo Garnett MD URINE ORDERABLES Performing Organization Address City/State/[place] [address] HOLLI SamanageIUM documented in this encounter Visit Diagnoses Diagnosis Transplanted kidney Kidney replaced by transplant Need for prophylactic immunotherapy Routine health maintenance Routine general medical examination at a health care facility documented in this encounter Care Teams Wind Technician Relationship Specialty Start Date End Date Candido Jenkins MD PCP - General 05/20/11 04/01/13 [address] [place] [address] documented as of this encounter
--- OUTSIDE RECORDS SUMMARY | 2022-05-24 10:59 | XMS_ITS | Encounter Summary ---
:1955 Author Organization [facility] [place] [address] Care Team Providers Name Role Phone Candido Jenkins MD Primary Care Provider Reason for Visit Reason Comments Wound Check Right BKA Encounter Details Date Type Department Care Team Description 08/02/2012 Follow-Up [facility]edics at [facility], DR CRISTIAN Olsen, below knee; [facility] Giovana tyler Delayed wound healing; [place] [address] Diabetes mellitus with neuro mendy [phone] Social History Tobacco Use Types Packs/Day Years [...] encounter Progress Notes Lizzy Pennington RN - 08/02/2012 10:50 AM EST LOWER EXTREMITY TEAM NURSE VISIT Case Date: 06/21/2011 Surgeon:HENNA GAMINO JR, MD - Procedure(s): AMPUTATION, BELOW-KNEE Subjective: I got the new leg and got a big rash on the stump, it is better now but I quit wearing the leg and the liner they gave me. Objective: Patient arrived to clinic wearing his left leg prosthesis and a compression sleeve on theright. Appreciate mild redness with a flat dry rash over the distal 1/3 of the stump. No erythema. His incision is generally well healed. There are 2 open sites along the incision now and these 2 are medial. Most laterally the site has epithelialized. This site is pocked in appearance. It did not fully granulate before epithelizing. There is no periwound erythema or purulence noted. From the center toward the medial #1 wound measures 2 x 2 x 6mm and #2 5 x 4 x 3mm. The 2 sites have pearly granular bases beneath thin fibrin. Mom stopped dressing changed when the sores sacbbed over. He had his HbA1c done 12--12 and it was 8.4 w/ EAg of [...] Solosite Plan: Dressing changes as above. Mother is comfortable with the plan.His mother does the dressings and assess wound healing. She was encouraged to scrub the wounds well to help break up the fibrin and prevent early closure of the wounds She was able to verbalize s/s to report. He was encouraged to wash the inside of the liner and resume wearing it and wean in to wearing it slowly. Continue PT for balance, functional mobility and strengthening. He was cautioned to check the stump frequently throughout the day while he is weaning into the liner. He will call with any change in his incision, fever, chills, malaise or concerns about his stump. Supplies given: NONE This visit was supervised by Dr. Montez documented in this encounter Plan of Treatment Upcoming Encounters Date Type Specialty Care Team Description 05/26/2022 Office Visit Otolaryngology Ricardo Panda PA [facility] [address] [place] [address] (Wo rk) 06/02/2022 Infusion Hematology and Oncology 06/16/2022 Infusion Hematology and Oncology 06/21/2022 Office Visit Neurology Tyler Rojas MD [facility] Medical [facility] er Neurology [place], [place] [phone] (Wo rk) 06/30/2022 Infusion Hematology and Oncology 07/14/2022 Infusion Hematology and Oncology 07/28/2022 Infusion Hematology and Oncology 08/11/2022 Infusion Hematology and Oncology 11/04/2022 Office Visit Rheumatology Dante Freedman PA [facility] RHEUMATOLOGY [place], [place] [address] (Wo rk) documented as of this encounter Visit Diagnoses Diagnosis Amputee, below knee Lower limb amputation, below knee Delayed wound healing Open wound(s) (multiple) of unspecified site(s), complicated Diabetes mellitus with neuropathy Type II or unspecified type diabetes fredo litus with neurological manifestations, not stated as uncontrolled documented in this encounter Care Teams Ada Accommodation Consultant Relationship Specialty Start Date End Date Candido Jenkins MD PCP - General 05/20/11 04/01/13 [address] [place] [address] documented as of this encounter
--- OUTSIDE RECORDS SUMMARY | 2022-05-24 10:59 | XMS_ITS | Encounter Summary ---
:1955 Author Organization [facility] [place] [address] Care Team Providers Name Role Phone Candido Jenkins MD Primary Care Provider Reason for Visit Reason Comments Wound Evaluation r bka 06/21/12 Encounter Details Date Type Department Care Team Description 10/26/2012 Office Visit Orthopaedics at [facility], DR CRISTIAN Roblero's arthropathy, diabe tic, R (Primary Dx); 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 I use the walker and I am working with the therapist. Objective: Patient arrived to clinic ambulatory with forearm crutches. The right stump incision continues generally well healed. There are 2 open sites medially. Both areas are invaginated and epithelialized. There is no periwound erythema or purulence noted. The stump continues to shrink and has goodshape. He takes the legs off at bedtime and sleeps w/o the shrinkers or sleeves/socks. There is a musty odor in the sleeve and about the stump. His mother doesn't feel as though he is changing the liners as much as he has been instructed to. He has lost approximately 20 lbs and is holding there. He had his HbA1c done 12--12 and it was 8.4 w/ EAg of 194. Added Victoza. Plan: Patient encouraged to remove the gel liners twice during the day and set the stumps out in thelight or sun for 10- 20 min. Likewise he was encouraged to change the liners every day so his mothercan keep them clean. He was asked to use a dry 2 x 2 over the 2 invaginated areas to see if he is actually getting any drainage from either site. If he is his mother will resume Solosite and a short wick and he will decrease the amount of time on the leg. Continue PT for balance, functional mobility and strengthening. He was cautioned to check the stump frequently throughout the day. He will call with any change in his incision, fever, chills, malaise or concerns about his stump. Supplies given: NONE This visit was supervised by documented in this encounter Plan of Treatment Upcoming Encounters Date Type Specialty Care Team Description 05/26/2022 Office Visit Otolaryngology Ricardo Panda PA [facility] Medical [facility] STELLA [place] 0375 (Wo rk) 06/02/2022 Infusion Hematology and Oncology 06/16/2022 Infusion Hematology and Oncology 06/21/2022 Office Visit Neurology Tyler Rojas MD [facility] Dr Sofi [place] [address] (Wo rk) 06/30/2022 Infusion Hematology and Oncology 07/14/2022 Infusion Hematology and Oncology 07/28/2022 Infusion Hematology and Oncology 08/11/2022 Infusion Hematology and Oncology 11/04/2022 Office Visit Rheumatology Dante Freedman PA [facility] RHEUMATOLOGY [place], [place] [address] (Wo rk) documented as of this encounter Visit Diagnoses Diagnosis Charcot's arthropathy, diabetic, R - Steff krystal Type II or unspecified type diabetes fredo litus with neurological manifestations, not stated as uncontrolled Amputee, below knee, L Lower limb amputation, below knee 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
--- OUTSIDE RECORDS SUMMARY | 2022-05-24 10:59 | XMS_ITS | Encounter Summary ---
:1955 Author Organization [facility] [place] [address] Care Team Providers Name Role Phone Candido Jenkins MD Primary Care Provider Reason for Visit Reason Comments Wound Check s/p BKA Dos 06/21/11 Encounter Details Date Type Department Care Team Description 05/04/2012 Follow-Up Orthopaedics at [facility], DR FOSTER S/P BKA (below knee amputati on) (Primary Dx); [facility] D rive Amputee, below knee, L; [place] [address] Type II diabetes mellitus wi th renal manifestations; [phone] Diabetes mellit us with neuropathy; Delayed wound h ealing; Amputee, below knee Social History Tobacco Use Types Packs/Day Years [...] encounter Progress Notes Lizzy Pennington RN - 05/04/2012 10:51 AM EDT LOWER EXTREMITY TEAM NURSE VISIT Case Date: 06/21/2011 Surgeon:HENNA ROY JR, MD - Procedure(s): AMPUTATION, BELOW-KNEE Subjective: My Mother thinks 2 spots are going too slow but , I'm in no hurry. Objective: Patient arrived to clinic wearing his left leg prosthesis and a dressing and compression sleeve on the right. His incision is generally well approximated. There are 4 open sites. Note what appears like Vicril suture material in the more centromedial wounds. These are the 2 deepest sites There is no periwound erythema or purulence noted. From the center toward the medial #1 wound measures 3x 3 x 6 and #2 measures 4 x 4 x 2. Both have pearly red granulation bases following debridement of slough, fibrin and Vicril. Laterally he has a 9x 6 x0mm site that had thinly scabbed. Stump is taking nice shape. He is wearing compression daily. Blood sugars have been between 160 and 200. He had his HbA1c done and it was 8.0 (another decrease) Procedure: The incision was washed with Hibiclenz, rinsed with nss and dried. All slough was sharplydebrided with sterile scissor, forceps and #15 blade. The end of a dry 2 x 2 gauze was tucked into the new open area.The existing wounds were then painted with NORMOGEL Ag and covered with a dsd then acompressogrip was applied to the stump. Plan: Dressing [...] or concerns about his stump. Supplies given: Patient was given RX for Gabapentin and one to begin fitting for the BK prosthesis This visit was supervised by Dr. Roy documented in this encounter Plan of Treatment Upcoming Encounters Date Type Specialty Care Team Description 05/26/2022 Office Visit Otolaryngology Ricardo Panda PA [facility] [address], [place] [address] (Wo rk) 06/02/2022 Infusion Hematology and Oncology 06/16/2022 Infusion Hematology and Oncology 06/21/2022 Office Visit Neurology Tyler Rojas MD [facility] Medical [facility] er Neurology [place], [place] [phone] (Wo rk) 06/30/2022 Infusion Hematology and Oncology 07/14/2022 Infusion Hematology and Oncology 07/28/2022 Infusion Hematology and Oncology 08/11/2022 Infusion Hematology and Oncology 11/04/2022 Office Visit Rheumatology Dante Freedman PA [facility]ICAL 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
--- OUTSIDE RECORDS SUMMARY | 2022-05-24 10:59 | XMS_ITS | Encounter Summary ---
:1955 Author Organization [facility] [place] [address] Care Team Providers Name Role Phone Dc Ibanez MD Primary Care Provider Encounter Details Date Type Department Care Team Description 04/09/2013 Telephone Orthopaedics at [facility] Narayan Roy Jr., MD [facility] [place] [id number] ORTHOPAEDIC SURGERY [phone] [place], [place] [address] (Wo rk) Social History Tobacco [...] this encounter Miscellaneous Notes Telephone Encounter - Alejandra Lam LPN - 04/09/2013 9:10 AM EDT Spoke with Amanda at [facility]. She states that she needs the CMN filled out correctly. I gave a copy of the faxed form with directions, per Amanda, to Dr. Roy. documented in this encounter Plan of Treatment Upcoming Encounters Date Type Specialty Care Team Description 05/26/2022 Office Visit Otolaryngology Ricardo Panda PA [facility] [place], [place] [address] (Wo rk) 06/02/2022 Infusion Hematology and Oncology 06/16/2022 Infusion Hematology and Oncology 06/21/2022 Office Visit Neurology Tyler Rojas MD [facility] Neurology [place], [place] [phone] (Wo rk) 06/30/2022 Infusion Hematology and Oncology 07/14/2022 Infusion Hematology and Oncology 07/28/2022 Infusion Hematology and Oncology 08/11/2022 Infusion Hematology and Oncology 11/04/2022 Office Visit Rheumatology Dante Freedman PA [facility] RHEUMATOLOGY [place], [place] [address] (Wo rk) documented as of this encounter Visit Diagnoses Not on filedocumented in this encounter Care Teams Solutions Engineer Relationship Specialty Start Date End Date Dc Ibanez MD PCP - General 04/02/13 04/01/14 [address] [place] [address] documented as of this encounter
--- OUTSIDE RECORDS SUMMARY | 2022-05-24 10:59 | XMS_ITS | Encounter Summary ---
:1955 Author Organization [facility] Address [place] [id number] Care Team Providers Name Role Phone Candido Jenkins MD Primary Care Provider Reason for Visit Reason Comments Wound Check Right stump Encounter Details Date Type Department Care Team Description 04/19/2012 Follow-Up Orthopaedics at [facility], DR CRISTIAN Olsen, below knee, L; [facility] D rive Type II diabetes mellitus wi th renal manifestations; [place] [phone] Diabetes mellitus with neuro mendy; [phone] Charcot's arthr opathy, diabetic, R; Delayed wound h ealing; Amputee, below knee [...] encounter Progress Notes Lizzy Pennington RN - 04/19/2012 4:07 PM EDT LOWER EXTREMITY TEAM NURSE VISIT Case Date: 06/21/2011 Surgeon:HENNA GAMINO JR, MD - Procedure(s): AMPUTATION, BELOW-KNEE Subjective: I think things are doing better all the way around. Objective: Patient arrived to clinic wearing his left leg prosthesis and a dressing and compression sleeve on the right. His incision is generally well approximated. There are 4 open sites. Last visit there were 3 but a small 2mm flaking bit of callus came off yesterday and upon inspection today we note that the site probes 6mm.This site is located between the 2 medial wounds noted below. There is noperiwound erythema or purulence noted. Laterally he has a 9x 6 x 2mm wound with 50% thin loosely adherent slough layer that has a bright granulation bed and good bleeding after debridement. Centromedially there is a 5 x 4 x 2mm wound with 100% granulation base.The most medial measures 5 x 4 x 2mm. Both of these wounds are clean and moist with a thin loose slough layer covering the wound bed. All of the periwound skin is soft. Drainage has been scant and clear. Stump is taking nice shape. He is wearing compression daily. He had his HbA1c done and it [...] as above. Mother is comfortable with the plan for the new opening. Patient and caregivers were reminded to really scrub the most medial sites rigorously to help debride the woundbeds. His mother does the dressings and assess wound healing. She was able to verbalize s/s to report. VNA is seeing the patient weekly- family is able to perform dressing changes and recognize wound problems. He will call with any change in his incision, fever, chills, malaise or concerns about his stump. Supplies given: None Dr. Subramanian supervised this visit documented in this encounter Plan of Treatment Upcoming Encounters Date Type Specialty Care Team Description 05/26/2022 Office Visit Otolaryngology Ricardo Panda PA [facility] Dr [address] [place] [address] (Wo rk) 06/02/2022 Infusion Hematology and Oncology 06/16/2022 Infusion Hematology and Oncology 06/21/2022 Office Visit Neurology Tyler Rojas MD [facility] Medical [facility] er Neurology [place], [place] [phone] (Wo rk) 06/30/2022 Infusion Hematology and Oncology 07/14/2022 Infusion Hematology and Oncology 07/28/2022 Infusion Hematology and Oncology 08/11/2022 Infusion Hematology and Oncology 11/04/2022 Office Visit Rheumatology Dante Freedman PA [facility] MEDICAL [facility] ER RHEUMATOLOGY [place], [place] [address] (Wo rk) documented as of this encounter Visit Diagnoses Diagnosis Amputee, below knee, L Lower limb amputation, below knee 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
--- OUTSIDE RECORDS SUMMARY | 2022-05-24 11:00 | XMS_ITS | Encounter Summary ---
:1955 Author Organization [facility] [place] [address] Care Team Providers Name Role Phone Candido Jenkins MD Primary Care Provider Reason for Visit Reason Comments Wound Check s/p Right BKA Dos 06/21/11 Encounter Details Date Type Department Care Team Description 11/17/2011 Follow-Up Orthopaedics at [facility], DR FOSTER Type II diabetes mellitus wi th renal manifestations; [facility] D rive S/P BKA (below knee amputati on) - right lower extremity; [place] [address] Diabetes mellitus with neuro mendy; [phone] Charcot's arthr opathy, diabetic, R; Amputee, below knee, L Social History Tobacco Use Types Packs/Day Years Used Date Former Smoker Cigarettes 2 20 Quit: 01/19/19 93 Smokeless Tobacco: Never Used Alcohol Use Standard Drinks/Week Comments No 0 (1 standard drink = 0.6 oz pure alcoho l) Sex Assigned at Date Recorded Not on file documented as of this encounter Progress Notes Lizzy Pennington RN - 11/17/2011 10:21 AM EDT LOWER EXTREMITY TEAM NURSE Case Date: 06/21/2011 Surgeon:HENNA GAMINO JR, MD - Primary SUSAN MEADE MD - Resident-Surgeon Jnon Diagnosis: Diabetes with neuropathy, chronic ankle infection Procedure(s): AMPUTATION, BELOW-KNEE Subjective: I have the sugars down to about 200 now pretty consistently. Mom says the incision is doing much better. Objective: Patient arrived to clinic wearing his left leg prosthesis and a dressing and compression sleeve on the right. His incision is generally well approximated. Both previously noted superficial openings have epithelialized. Laterally he has a 15 x 18 x 5mm wound with a thin loosely adherent slough layer that has a bright granulation bed after debridement. There are 2 opn areas medially. Centromedially the wound measures 10 x 10 x 3mm. The most medial measures 9 x 13 x 6mm. Both of these woundsare clean and wet. The periwound skin is soft. Stump is beginning to take shape. He is and has been afebrile. He had his HbA1c done 11-08-2011 and it was 8.5 this represents an increase. Procedure: The incision was washed with Hibiclenz, rinsed with nss and dried. All slough was sharplydebrided with sterile scissor, forceps and #15 blade. The wounds were then painted with IODOSORB andcovered with a dsd then a compressogrip was applied to the stump. Plan: Dressing changes as above. Mom reminded to really scrub the most medial sites rigorously to help debride the wound beds. Instructed on the change to IODOSORB and it's expected results. Patient to continue working with his PT/OT for strengthening and safety with transfers and SN for wound checks. Mom will change the dressing when VNA is not scheduled. He will continue to follow with his front end ui developer with respect to his blood sugars. He will call with any change in his incision, fever, chills, malaise or concerns about his stump. Dr. Montez supervised this visit documented in this encounter Plan of Treatment Upcoming Encounters Date Type Specialty Care Team Description 05/26/2022 Office Visit Otolaryngology Ricardo Panda PA [facility] Dr [address] [place] [address] (Oscar escobedo) 06/02/2022 Infusion Hematology and Oncology 06/16/2022 Infusion Hematology and Oncology 06/21/2022 Office Visit Neurology Tyler Rojas MD [facility] Dr Sofi [place] [phone] (Wo gregg) 06/30/2022 Infusion Hematology and Oncology 07/14/2022 Infusion Hematology and Oncology 07/28/2022 Infusion Hematology and Oncology 08/11/2022 Infusion Hematology and Oncology 11/04/2022 Office Visit Rheumatology Dante Freedman PA [facility] RHEUMATOLOGY [place], [place] [address] (Wo rk) documented as of this encounter Visit Diagnoses Diagnosis 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 Type II or unspecified type diabetes fredo litus with renal manifestations, not stated as uncontrolled S/P BKA (below knee amputation) - right lower extremity Lower limb amputation, below knee Charcot's arthropathy, diabetic, R Type II or unspecified type diabetes fredo litus with neurological manifestations, not stated as uncontrolled Amputee, below knee, L Lower limb amputation, below knee documented in this encounter Care Teams Floor Trader Relationship Specialty Start Date End Date Candido Jenkins MD PCP - General 05/20/11 04/01/13 [address] [place] [address] documented as of this encounter
--- OUTSIDE RECORDS SUMMARY | 2022-05-24 11:00 | XMS_ITS | Encounter Summary ---
:1955 Author Organization [facility] [place] [address] Care Team Providers Name Role Phone Candido Jenkins MD Primary Care Provider Reason for Visit Reason Comments Wound Check Right BKA dos 06/21/11 Encounter Details Date Type Department Care Team Description 08/23/2011 Follow-Up Orthopaedics at [facility], DR FOSTER S/P BKA (below knee amputati on); [facility] Giovana tyler Diabetes [place] [address] Social History Tobacco Use Types Packs/Day Years Used Date Former Smoker Cigarettes 2 20 Quit: 01/19/19 93 Smokeless Tobacco: Never Used Alcohol Use Standard Drinks/Week Comments No 0 (1 standard drink = 0.6 oz pure alcoho l) Sex Assigned at Date Recorded Not on file documented as of this encounter Progress Notes Lizzy Pennington RN - 08/23/2011 10:12 AM EST LOWER EXTREMITY TEAM NURSE Case Date: 06/21/2011 Surgeon:HENNA GAMINO JR, MD - Primary SUSAN MEADE MD - Resident-Surgeon Jonn Diagnosis: Diabetes with neuropathy, chronic ankle infection Procedure(s): AMPUTATION, BELOW-KNEE 8 weeks post surgical procedure above Subjective: The sugars have been better, I think I'm getting there. The leg is looking really good. Objective: Patient arrived to clinic wearing his left leg prosthesis and a dressing and compression sleeve on the right. His incision is generally well approximated. Note some widening and eschar at the lateral pole, all of the remaining medial open areas are superficial and granulating and the escharhas thinned to loosely adherent fibrin. There is no erythema. Drainage is clear and serous from the lateral sites only all the remaining incision is free from any drainage. He is and has been afebrile. Blood sugars have been in the low 150's in the am for the last few days. Procedure: The incision was washed with Hibiclenz, rinsed with nss and dried. All fibrin medially was sharply debrided as was the eschar with sterile scissor, forceps and #15 blade. The wounds were then painted with Santyl and covered with a dsd then a compressogrip was applied to the stump. Plan: Dressing changes as above. Patient to continue working with his PT/OT and SN. Mom will change the dressing when VNA is not scheduled. Santyl daily to the open areas of the incision in a small amount after Cleansing with Hibiclenz and rinsing thoroughly. Patient encouraged to allow to air dry daily for 1 hour before putting on the new dressing to allow for some drying of the incision. He will continue to follow with his environmental health safety engineer with respect to his blood sugars. He will call with any change in his incision, fever, chills, malaise or concerns about his stump. Dr. Montez supervised this visit documented in this encounter Plan of Treatment Upcoming Encounters Date Type Specialty Care Team Description 05/26/2022 Office Visit Otolaryngology Ricardo Panda PA [facility] Dr [address] [place] [address] (Oscar escobedo) 06/02/2022 Infusion Hematology and Oncology 06/16/2022 Infusion Hematology and Oncology 06/21/2022 Office Visit Neurology Tyler Rojas MD [facility] Dr Sofi [place] [phone] (Oscar escobedo) 06/30/2022 Infusion Hematology and Oncology 07/14/2022 Infusion Hematology and Oncology 07/28/2022 Infusion Hematology and Oncology 08/11/2022 Infusion Hematology and Oncology 11/04/2022 Office Visit Rheumatology Dante Freedman PA [facility] RHEUMATOLOGY [place], [place] [address] (Wo rk) documented as of this encounter Visit Diagnoses Diagnosis S/P BKA (below knee amputation) Lower limb amputation, below knee Diabetes mellitus with neuropathy Type II or unspecified type diabetes fredo litus with neurological manifestations, not stated as uncontrolled documented in this encounter Care Teams Stable Manager Relationship Specialty Start Date End Date Candido Jenkins MD PCP - General 05/20/11 04/01/13 [address] [place] [address] documented as of this encounter
--- OUTSIDE RECORDS SUMMARY | 2022-05-24 11:00 | XMS_ITS | Encounter Summary ---
:1955 Author Organization [facility] [place] [address] Care Team Providers Name Role Phone Candido Jenkins MD Primary Care Provider Reason for Visit Reason Comments Follow Up Surgery RIGHT BKA. DOS Encounter Details Date Type Department Care Team Description 07/16/2011 Follow-Up Orthopaedics at [facility], DR FOSTER Diabetes mellitus with neuro mendy; [facility] D rive S/P BKA (below knee amputati on) [place] [address] Social History Tobacco Use Types Packs/Day Years Used Date Former Smoker Cigarettes 2 20 Quit: 01/19/19 93 Smokeless Tobacco: Never Used Alcohol Use Standard Drinks/Week Comments No 0 (1 standard drink = 0.6 oz pure alcoho l) Sex Assigned at Date Recorded Not on file documented as of this encounter Progress Notes Lizzy Pennington RN - 07/16/2011 11:08 AM EST LOWER EXTREMITY TEAM NURSE Case Date: 06/21/2011 Surgeon:HENNA ROY JR, MD - Primary SUSAN MEADE MD - Resident-Surgeon Jonn Diagnosis: Diabetes with neuropathy, chronic ankle infection Procedure(s): AMPUTATION, BELOW-KNEE 3 weeks post surgical procedure above Subjective: Im doing what they want me to do with my insulin and now the sugars are down, I know 250's are still high but they are better and still coming down. The VNA is helping me at home, I think things are going good. Objective: Patient arrived to clinic wearing his left leg prosthesis and a dressing and compression sleeve on the right. His incision is generally well approximated.Note some widening and eschar at thelateral pole and some loose approximation at the medial. There is little central redness this visit and the swelling is also improved but there is some incisional maceration in some areas. Drainage is clear and serous. There is no purulent drainage. He is and has been afebrile. Procedure:!/2 of the remaining sutures were removed and replaced with Sterristrips. The incision wascovered with a dsd then a compressogrip was applied to the stump. Plan: Patient to continue working with his PT/OT and SN. Mom will change the dressing when VNA is not scheduled. Bactroban daily to the incision in a small amount after wiping off the old medication. Patient encouraged to wipe the incision with nss and allow to air dry daily for 1 hour before putting on the new dressing to allow for some drying of the incision. He will continue to follow with his PCPwith respect to his blood sugars. He will call with any change in his incision, fever, chills, malaise or concerns about his stump. Dr. Roy supervised this visit documented in this encounter Plan of Treatment Upcoming Encounters Date Type Specialty Care Team Description 05/26/2022 Office Visit Otolaryngology Ricardo Panda PA [facility] STELLA [place] 0375 (Wo gregg) 06/02/2022 Infusion Hematology and Oncology 06/16/2022 Infusion Hematology and Oncology 06/21/2022 Office Visit Neurology Tyler Rojas MD [facility] Neurology [place], [place] [phone] (Wo rk) 06/30/2022 Infusion Hematology and Oncology 07/14/2022 Infusion Hematology and Oncology 07/28/2022 Infusion Hematology and Oncology 08/11/2022 Infusion Hematology and Oncology 11/04/2022 Office Visit Rheumatology Dante Freedman PA [facility] RHEUMATOLOGY [place] [address] (Wo rk) documented as of this encounter Visit Diagnoses Diagnosis Diabetes mellitus with neuropathy Type II or unspecified type diabetes fredo litus with neurological manifestations, not stated as uncontrolled S/P BKA (below knee amputation) - right lower extremity Lower limb amputation, below knee documented in this encounter Care Teams Weights And Measures Inspector Relationship Specialty Start Date End Date Candido Jenkins MD PCP - General 05/20/11 04/01/13 [address] [place] [address] documented as of this encounter
--- OUTSIDE RECORDS SUMMARY | 2022-05-24 11:00 | XMS_ITS | Encounter Summary ---
:1955 Author Organization [facility] [place] [address] Care Team Providers Name Role Phone Candido Jenkins MD Primary Care Provider Encounter Details Date Type Department Care Team Description 10/18/2011 Follow-Up Neurology at [facility] Angel Boyd MD Tremor, essential [facility] (Pr imary Dx) [place] [address] NEUROLOGY DEPT. [phone] [place] [id number] (Wo rk) Social History Tobacco Use Types [...] Reading Time Taken Comments Blood Pressure 138/56 10/18/2011 10:05 AM EDT Pulse 66 10/18/2011 10:05 AM EDT Temperature - - Respiratory Rate - - Oxygen Saturation - - Inhaled Oxygen Concentration - - Weight - - Height - - Body Mass Index - - documented in this encounter Progress Notes Angel Boyd MD - 10/18/2011 11:22 AM EDT Copy: Candido Jenkins M.D. [facility] [address] [place] [address] I saw Leroy Torres today in follow up in the company of his and friend. I must say, he looks much more at ease and his tremor is vastly improved since I saw him last. The propranolol certainly is helping his tremor, but another very important improvement in his overall sense of well being occurred when he had his right leg amputated. He apparently had been suffering so much with the pain from that, that it colored every waking movement of the day. Obviously, it is not the most desirable outcome to require amputation in the first place, but now that it is done, he is feeling a great deal better. I renewed his propranolol. Once again, we talked about the potential interactions with his other medications, including the fact that it might mask any output such as might occur, for example, with hypoglycemia. His tremor is not entirely gone, but we agreed that he is probably on a maximal reasonable dose, and probably does not need additional medications beyond that at this time. Fifteen minutes of our 25-minute visit were in supportive counseling and therapeutic planning. documented in this encounter Plan of Treatment Upcoming Encounters Date Type Specialty Care Team Description 05/26/2022 Office Visit Otolaryngology Ricardo Panda PA [facility] Dr [place] 0375 (Wo rk) 06/02/2022 Infusion Hematology and Oncology 06/16/2022 Infusion Hematology and Oncology 06/21/2022 Office Visit Neurology Tyler Rojas MD [facility] Neurology [place], [place] [phone] (Wo rk) 06/30/2022 Infusion Hematology and Oncology 07/14/2022 Infusion Hematology and Oncology 07/28/2022 Infusion Hematology and Oncology 08/11/2022 Infusion Hematology and Oncology 11/04/2022 Office Visit Rheumatology Dante Freedman PA [facility] [place]HEUMATOLOGY [place], [place] [address] (Wo rk) documented as of this encounter Visit Diagnoses Diagnosis Tremor, essential - Primary Essential and other specified forms of t remor documented in this encounter Care Teams Instructional Coach Relationship Specialty Start Date End Date Candido Jenkins MD PCP - General 05/20/11 04/01/[address] [place] [address] documented as of this encounter
--- OUTSIDE RECORDS SUMMARY | 2022-05-24 11:00 | XMS_ITS | Encounter Summary ---
:1955 Author Organization [facility] [place] [address] Care Team Providers Name Role Phone Candido Jenkins MD Primary Care Provider Encounter Details Date Type Department Care Team Description 10/25/2011 Office Visit Audiology at [facility] Mindy Moody, Sensorineural hearing [facility] AUD loss, bilateral Drive [facility] (Primary Dx) [place], [place] CENTER [address] AUDIOLOGY DEPT [phone] [place], [place] [address] Social History Tobacco Use Types Packs/Day Years Used Date Former Smoker Cigarettes 2 20 Quit: 01/19/19 93 Smokeless Tobacco: Never Used Alcohol Use Standard Drinks/Week Comments No 0 (1 standard drink = 0.6 oz pure alcoho l) Sex Assigned at Date Recorded Not on file documented as of this encounter Progress Notes Mindy Joiner, AUD - 10/25/2011 1:00 PM EDT AUDIOLOGY Leroy Torres was fit today with binaural hearing aids. Verification of hearing aid fit was completed via [id number] (REM) using the DSL-Adult prescriptive fitting method. The aided responsesnicely approximated targets for speech without exceeding MPO targets. Mr. Torres was subjectively satisfied with the sound quality of the aids and loudness discomfort was denied. Mr. Torres was instructed on use, care and maintenance of the hearing aids, including instruction onhearing aid insertion/removal, cleaning and batteries. Warranty coverage, and the 30-day trial period were discussed. A review of expectations and the hearing aid adjustment process were also discussed. Mr. Torres was able to insert and manipulate the instruments with relative ease and reported that the telecoil volume was satisfactory. he will be seen in 2-4 weeks for a follow-up hearing aid check and orientation. HEARING AID(S): HEARING AID RIGHT LEFT Style ITC Same Make/Model Dimitri Ignite 20 Same Casing Color Beige faceplace/ red case Beige faceplate/blue case Serial Number [id number] Battery Size 312 312 Battery Club PROGRAM/SETTINGS Fitting Algorithm DSL-Adult Same Verification Method REM Same Programs P1= Normal (automatic omnidirectional/directional tiffany) P4= Autocoil (not in memory rotation Same Disabled Features Push button Same Other Comments HEARING AID WARRANTY Original Fit Date 10/25/11 10/25/11 Current Status Under parking lot laborer repair and L&D coverage until 11/01/13 Under parking lot laborer repair and L&D coverage until 11/01/13 EARMOLD (if BTE GARCIA) Lab EM (style/material/vent/color) Impression Date Invoice # Tube/KAMILLA (length/dome/paper cone grader size) OTHER/COMMENTS Terrance Blue [place] [address] (fax) documented in this encounter Plan of Treatment Upcoming Encounters Date Type Specialty Care Team Description 05/26/2022 Office Visit Otolaryngology Ricardo Panda PA [facility] Dr [place], [place] [address] (Wo rk) 06/02/2022 Infusion Hematology and Oncology 06/16/2022 Infusion Hematology and Oncology 06/21/2022 Office Visit Neurology Tyler Rojas MD [facility] Dr [place], [place] [phone] (Wo rk) 06/30/2022 Infusion Hematology and Oncology 07/14/2022 Infusion Hematology and Oncology 07/28/2022 Infusion Hematology and Oncology 08/11/2022 Infusion Hematology and Oncology 11/04/2022 Office Visit Rheumatology Dante Freedman PA [facility] DR ARROYO [facility], [place] [address] (Wo rk) documented as of this encounter Visit Diagnoses Diagnosis Sensorineural hearing loss, bilateral - Primary documented in this encounter Care Teams Creative Manager Relationship Specialty Start Date End Date Candido Jenkins MD PCP - General 05/20/11 04/01/13 [address] [place] [address] documented as of this encounter
--- OUTSIDE RECORDS SUMMARY | 2022-05-24 11:00 | XMS_ITS | Encounter Summary ---
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; [facility] Giovana tyler S/P BKA (below knee amputati on) - right lower extremity; [place] [address] Diabetes mellitus with neuro mendy; [phone] Amputee, below knee, L Social History Tobacco Use Types Packs/Day Years Used Date Former Smoker Cigarettes 2 20 Quit: 01/19/19 93 Smokeless Tobacco: Never Used Alcohol Use Standard Drinks/Week Comments No 0 (1 standard drink = 0.6 oz pure alcoho l) Sex Assigned at Date Recorded Not on file documented as of this encounter Progress Notes Lizzy Pennington RN - 09/06/2011 9:40 AM EST LOWER EXTREMITY TEAM NURSE Case Date: 06/21/2011 Surgeon:HENNA GAMINO JR, MD - Primary SUSAN MEADE MD - Resident-Surgeon Jonn Diagnosis: Diabetes with neuropathy, chronic ankle infection Procedure(s): AMPUTATION, BELOW-KNEE 10 weeks post surgical procedure above Subjective: The sugars have been better. The leg is ok now but I fell on it a week ago, that got megood. I was getting in the chair and I slipped to the floor right on the leg. Objective: Patient arrived to clinic wearing his left leg prosthesis and a dressing and compression sleeve on the right. His incision is generally well approximated. Note superficial open area at the lateral and a spot medially. There are 2 deeper areas ( one lateral and 1pole and 1 more shallow one more medially). The lateral open area is the deepest of all the sites and measures 8mm. There is thickslough and adherent fibrin in the wound bed but it does bleed during debridement. All other sites are covered with thin adherent fibrin. There is no erythema, pain or fluctuance about the stump at all.Drainage is clear and serous from the lateral sites only all the remaining incision is free from any drainage. He is and has been afebrile. Blood sugars have been between 124 and 221 in the am for the last 2 weeks. Procedure: The incision was washed with Hibiclenz, [...] scheduled. Santyl daily to the open areas ofthe incision in a small amount after Cleansing with Hibiclenz and rinsing thoroughly. Patient encouraged to allow to air dry daily for 1 hour before putting on the new dressing to allow for some dryingof the incision. He will continue to follow with his small engine trainer with respect to his blood sugars. He will call with any change in his incision, fever, chills, malaise or concerns about his stump. Dr. [place] supervised this visit documented in this encounter Plan of Treatment Upcoming Encounters Date Type Specialty Care Team Description 05/26/2022 Office Visit Otolaryngology Ricardo Panda PA [facility] STELLA [place] [address] (Wo rk) 06/02/2022 Infusion Hematology and Oncology 06/16/2022 Infusion Hematology and Oncology 06/21/2022 Office Visit Neurology Tyler Rojas MD [facility] er Neurology [place], [place] [phone] (Wo rk) 06/30/2022 Infusion Hematology and Oncology 07/14/2022 Infusion Hematology and Oncology 07/28/2022 Infusion Hematology and Oncology 08/11/2022 Infusion Hematology and Oncology 11/04/2022 Office Visit Rheumatology Dante Freedman PA [facility] RHEUMATOLOGY [place], [place] [address] (Wo rk) documented as of this encounter Visit Diagnoses Diagnosis 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 Type II or unspecified type diabetes fredo litus with renal manifestations, not stated as uncontrolled S/P BKA (below knee amputation) - right lower extremity Lower limb amputation, below knee Diabetes mellitus with neuropathy Type II or unspecified type diabetes fredo litus with neurological manifestations, not stated as uncontrolled Amputee, below knee, L Lower limb amputation, below knee documented in this encounter Care Teams Gyn Physician Relationship Specialty Start Date End Date Candido Jenkins MD PCP - General 05/20/11 04/01/13 [address] [place] [address] documented as of this encounter
--- OUTSIDE RECORDS SUMMARY | 2022-05-24 11:00 | XMS_ITS | Encounter Summary ---
:1955 Author Organization [facility] [place] [address] Care Team Providers Name Role Phone Candido Jenkins MD Primary Care Provider Encounter Details Date Type Department Care Team Description 07/01/2011 Office Visit Orthopaedics at [facility] Henna Roy's arthropathy, diabe tic, R; [facility] MD Abi S/P BKA (below knee amputation) - right [place] [address] ORTHOPAEDIC SURGERY [place] [address] Social History Tobacco Use Types Packs/Day Years Used Date Former Smoker Cigarettes 2 20 Quit: 01/19/19 93 Smokeless Tobacco: Never Used Alcohol Use Standard Drinks/Week Comments No 0 (1 standard drink = 0.6 oz pure alcoho l) Sex Assigned at Date Recorded Not on file documented as of this encounter Progress Notes Henna Roy Jr., MD - 07/01/2011 4:27 PM EST Case Date: 06/21/2011 Surgeon:HENNA ROY JR, MD - Primary SUSAN MEADE MD - Resident-Surgeon Jonn Diagnosis: Diabetes with neuropathy, chronic ankle infection Procedure(s): AMPUTATION, BELOW-KNEE 10 days post op and patient feels good with minimal pain. Sugars have been in control. He is at rehab. Stump is minimally swollen. There is minimal healing. There is some anterior stitch edema and bruising around the stitches. Wound edges well approximated. Mild local erythema. Will replace the dressing and regularly place bactroban and xeroform on the wound. F/u in one week and likely every other stitch out with most of the middle ones left. Maintain compression on the stumpl documented in this encounter Plan of Treatment Upcoming Encounters Date Type Specialty Care Team Description 05/26/2022 Office Visit Otolaryngology Ricardo Panda PA [facility] Dr [place], [place] [address] (Wo rk) 06/02/2022 Infusion Hematology and Oncology 06/16/2022 Infusion Hematology and Oncology 06/21/2022 Office Visit Neurology Tyler Rojas MD [facility] Neurology [place], [place] [phone] (Wo rk) 06/30/2022 Infusion Hematology and Oncology 07/14/2022 Infusion Hematology and Oncology 07/28/2022 Infusion Hematology and Oncology 08/11/2022 Infusion Hematology and Oncology 11/04/2022 Office Visit Rheumatology Dante Freedman PA [facility] RHEUMATOLOGY [place], [place] [address] (Wo rk) documented as of this encounter Visit Diagnoses Diagnosis Charcot's arthropathy, diabetic, R Type II or unspecified type diabetes fredo litus with neurological manifestations, not stated as uncontrolled S/P BKA (below knee amputation) - right lower extremity Lower limb amputation, below knee documented in this encounter Care Teams Superintendent Sales Relationship Specialty Start Date End Date Candido Jenkins MD PCP - General 05/20/11 04/01/13 [address] [place] [address] documented as of this encounter
--- OUTSIDE RECORDS SUMMARY | 2022-05-24 11:00 | XMS_ITS | Encounter Summary ---
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; [facility] Giovana tyler Diabetes mellitus with neuro mendy; [place] [address] S/P BKA (below knee amputati on) - right lower extremity; [phone] Delayed wound h ealing Social History Tobacco Use Types Packs/Day Years Used Date Former Smoker Cigarettes 2 20 Quit: 01/19/19 93 Smokeless Tobacco: Never Used Alcohol Use Standard Drinks/Week Comments No 0 (1 standard drink = 0.6 oz pure alcoho l) Sex Assigned at Date Recorded Not on file documented as of this encounter Progress Notes Lizzy Pennington RN - 12/22/2011 9:08 AM EDT EXTREMITY TEAM NURSE VISIT Case Date: 06/21/2011 Surgeon:HENNA GAMINO JR, MD - Procedure(s): AMPUTATION, BELOW-KNEE Subjective: I think things are doing better all the way around. Objective: Patient arrived to clinic wearing his left leg prosthesis and a dressing and compression sleeve on the right. His incision is generally well approximated. There remain 3 open sites. Laterally he has a 12 x 13 x 3mm wound with 40% thin loosely adherent slough layer that has a bright granulation bed and good bleeding after debridement. Centromedially the wound measures 9 x 9 x 3mm. The most medial measures 9 x 9 x 6mm. Both of these wounds are clean and moist. With < 20% slough. All of the periwound skin is soft. Stump is taking nice shape. He is and has been afebrile. [...] rigorously to help debride the wound beds. Patient to continue working with his out patient PT/OT for strengthening. VNA has D/C'd but family is able to perform dressing changes and recognize wound problems. He will continue to follow with his blackjack supervisor with respect to his blood sugars. He has been working toward reducing his sugars to the 150 mrk but has had readings as high as 270. He will call with any change in his incision, fever, chills, malaise or concerns about his stump. Supplies given: IOD[employer] [address] Montez supervised this visit documented in this encounter Plan of Treatment Upcoming Encounters Date Type Specialty Care Team Description 05/26/2022 Office Visit Otolaryngology Ricardo Panda PA [facility] Dr [place], [place] [address] (Wo gregg) 06/02/2022 Infusion Hematology and Oncology 06/16/2022 Infusion Hematology and Oncology 06/21/2022 Office Visit Neurology Tyler Rojas MD [facility] Dr [place]i [place], [place] [phone] (Wo rk) 06/30/2022 Infusion Hematology and Oncology 07/14/2022 Infusion Hematology and Oncology 07/28/2022 Infusion Hematology and Oncology 08/11/2022 Infusion Hematology and Oncology 11/04/2022 Office Visit Rheumatology Dante Freedman PA [facility]OLOG[facility] [place], [place] [address] (Wo rk) documented as [...] lower extremity Lower limb amputation, below knee Delayed wound healing Open wound(s) (multiple) of unspecified site(s), complicated documented in this encounter Care Teams Dry Box Tender Relationship Specialty Start Date End Date Candido Jenkins MD PCP - General 05/20/11 04/01/13 [address] [place] [address] documented as of this encounter
--- OUTSIDE RECORDS SUMMARY | 2022-05-24 11:00 | XMS_ITS | Encounter Summary ---
:1955 Author Organization [facility] [place] [address] Care Team Providers Name Role Phone Candido Jenkins MD Primary Care Provider Encounter Details Date Type Department Care Team Description 08/12/2011 External Results [place] [facility] [place], [facility] [place] [address] [facility] [phone] AUDIOLOGY DEPT [place], [place] [address] (Wo rk) Social History Tobacco [...] Panda PA [facility] Dr [place], [place] [address] (Wo rk) 06/02/2022 Infusion Hematology and Oncology 06/16/2022 Infusion Hematology and Oncology 06/21/2022 Office Visit Neurology Tyler Rojas MD [facility] Dr [place]i [place], [place] [phone] (Wo rk) 06/30/2022 Infusion Hematology and Oncology 07/14/2022 Infusion Hematology and Oncology 07/28/2022 Infusion Hematology and Oncology 08/11/2022 Infusion Hematology and Oncology 11/04/2022 Office Visit Rheumatology Dante Freedman PA [facility] RHEUMATOLOGY [place], [place] [address] (Wo rk) documented as of this encounter Procedures Procedure Name Priority Date/Time Associated Diagnosis Comme nts AUDIOLOGY SCAN Routine 08/09/2011 documented in this encounter Results Scan Doc: Audiology (08/09/2011) Narrative This result has an attachment that is no t available. Corinne Young Johnny MS MEDIA MGR SCAN EXT ORDR/RSLT documented in this encounter Visit Diagnoses Not on filedocumented in this encounter Care Teams Squash Centre Manager Relationship Specialty Start Date End Date Candido Jenkins MD PCP - General 05/20/11 04/01/13 [address] [place] [address] documented as of this encounter
--- OUTSIDE RECORDS SUMMARY | 2022-05-24 11:00 | XMS_ITS | Encounter Summary ---
:1955 Author Organization [facility] [place] [address] Care Team Providers Name Role Phone Candido Jenkins MD Primary Care Provider Encounter Details Date Type Department Care Team Description 07/29/2011 Follow-Up Orthopaedics at [facility], DR FOSTER Type II diabetes mellitus wi th renal manifestations; [facility] Lizzy Lopez, SHEILA DEPT OF ORTHOPAEDICS S/P BKA (below knee amputation) - right lower extremity; [place] [address] Diabetes mellitus with neuro mendy; [phone] Amputee, below knee, L Social History Tobacco Use Types Packs/Day Years Used Date Former Smoker Cigarettes 2 20 Quit: 01/19/19 93 Smokeless Tobacco: Never Used Alcohol Use Standard Drinks/Week Comments No 0 (1 standard drink = 0.6 oz pure alcoho l) Sex Assigned at Date Recorded Not on file documented as of this encounter Progress Notes Lizzy Pennington RN - 07/29/2011 12:51 PM EST LOWER EXTREMITY TEAM NURSE Case Date: 06/21/2011 Surgeon:HENNA ROY JR, MD - Primary SUSAN MEADE MD - Resident-Surgeon Jonn Diagnosis: Diabetes with neuropathy, chronic ankle infection Procedure(s): AMPUTATION, BELOW-KNEE 5 weeks post surgical procedure above Subjective: Im doing what they want me to do with my insulin but they are still too high, I'm still in the mid 200's.The VNA is helping me and Mom at home. Objective: Patient arrived to clinic wearing his left leg prosthesis and a dressing and compression sleeve on the right. His incision is generally well approximated.Note some widening and eschar at thelateral pole. The medial side has epithelialized. There is little central redness this visit and theswelling is also improved. Drainage is clear and serous from the lateral sites only all the remaining incision is free from any drainage. The remaining sutures are loose. He is and has been afebrile. Procedure:All of the remaining sutures were removed and replaced with Sterristrips. The incision wasdabbed with Bactroban and covered with a dsd then a [...] He will continue to follow with his PCP with respectto his blood sugars. He will call with any change in his incision, fever, chills, malaise or concerns about his stump. Dr. Roy supervised this visit documented in this encounter Plan of Treatment Upcoming Encounters Date Type Specialty Care Team Description 05/26/2022 Office Visit Otolaryngology Ricardo Panda PA [facility] Dr [address] [place] [address] (Wo gregg) 06/02/2022 Infusion Hematology and Oncology 06/16/2022 Infusion Hematology and Oncology 06/21/2022 Office Visit Neurology Tyler Rojas MD [facility] Neurology [place], [place] [phone] (Wo gregg) 06/30/2022 Infusion Hematology and Oncology 07/14/2022 Infusion Hematology and Oncology 07/28/2022 Infusion Hematology and Oncology 08/11/2022 Infusion Hematology and Oncology 11/04/2022 Office Visit Rheumatology Dante Freedman PA [facility] RHEUMATOLOGY [place], [place] [address] (Wo rk) documented as of [...] knee documented in this encounter Care Teams Manager Of Maintenance Relationship Specialty Start Date End Date Candido Jenkins MD PCP - General 05/20/11 04/01/13 [address] [place] [address] documented as of this encounter
--- OUTSIDE RECORDS SUMMARY | 2022-05-24 11:00 | XMS_ITS | Encounter Summary ---
:1955 Author Organization [facility] [place] [address] Care Team Providers Name Role Phone Candido Jenkins MD Primary Care Provider Reason for Visit Reason Comments Wound Check Right BKA Dos 06/21/11 Encounter Details Date Type Department Care Team Description 08/09/2011 Follow-Up Orthopaedics at [facility], DR FOSTER Diabetes mellitus with neuro mendy; [facility] D rive S/P BKA (below knee amputati on) - [place] [address] Social History Tobacco Use Types Packs/Day Years Used Date Former Smoker Cigarettes 2 20 Quit: 01/19/19 93 Smokeless Tobacco: Never Used Alcohol Use Standard Drinks/Week Comments No 0 (1 standard drink = 0.6 oz pure alcoho l) Sex Assigned at Date Recorded Not on file documented as of this encounter Progress Notes Lizzy Pennington RN - 08/09/2011 9:52 AM EST LOWER EXTREMITY TEAM NURSE Case Date: 06/21/2011 Surgeon:HENNA GAMINO JR, MD - Primary SUSAN MEADE MD - Resident-Surgeon Jonn Diagnosis: Diabetes with neuropathy, chronic ankle infection Procedure(s): AMPUTATION, BELOW-KNEE 7 weeks post surgical procedure above Subjective: The VNA is helping me and Mom at home still and I think it is working good. Mom changesit Most of the time and they come and check on things. My blood sugars have started to come down I was like 150 this morning. Objective: Patient arrived to clinic wearing his left leg prosthesis and a dressing and compression sleeve on the right. His incision is generally well approximated. Note some widening and eschar at the lateral pole, all of the remaining medial open areas are superficial and granulating and the escharcaps are smaller and thinning. There is no erythema. Drainage is clear and serous from the lateral sites only all the remaining incision is free from any drainage. He is and has been afebrile. Procedure: The incision was washed with Hibiclenz, rinsed with nss and dried thoroughly then dabbed with Bactroban and covered with a dsd [...] 1 hour before putting on the new dressingto allow for some drying of the incision. He will continue to follow with his PCP with respect to his blood sugars. He will call with any change in his incision, fever, chills, malaise or concerns about his stump. Dr. Montez supervised this visit documented in this encounter Plan of Treatment Upcoming Encounters Date Type Specialty Care Team Description 05/26/2022 Office Visit Otolaryngology Riacrdo Panda PA [facility] STE[place]A [place] [address] (Wo gregg) 06/02/2022 Infusion Hematology and Oncology 06/16/2022 Infusion Hematology and Oncology 06/21/2022 Office Visit Neurology Tyler Rojas MD [facility] Neurology [place], [place] [phone] (Wo rk) 06/30/2022 Infusion Hematology and Oncology 07/14/2022 Infusion Hematology and Oncology 07/28/2022 Infusion Hematology and Oncology 08/11/2022 Infusion Hematology and Oncology 11/04/2022 Office Visit Rheumatology Dante Freedman PA [facility] RHEUMATOLOGY [place] [address] (Wo rk) documented as of this encounter Visit Diagnoses Diagnosis Diabetes mellitus with neuropathy Type II or unspecified type diabetes fredo litus with neurological manifestations, not stated as uncontrolled S/P BKA (below knee amputation) - right lower extremity Lower limb amputation, below knee documented in this encounter Care Teams Wood Gang Sawyer Relationship Specialty Start Date End Date Candido Jenkins MD PCP - General 05/20/11 04/01/13 [address] [place] [address] documented as of this encounter
--- OUTSIDE RECORDS SUMMARY | 2022-05-24 11:00 | XMS_ITS | Encounter Summary ---
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; [facility] Giovana tyler Diabetes mellitus with neuro mendy; [place] [address] Delayed wound healing; [phone] Sensorineural h earing loss, bilateral; S/P BKA (below knee amputation); Amputee, below knee Social History Tobacco Use Types Packs/Day Years Used Date Former Smoker Cigarettes 2 20 Quit: 01/19/19 93 Smokeless Tobacco: Never Used Alcohol Use Standard Drinks/Week Comments No 0 (1 standard drink = 0.6 oz pure alcoho l) Sex Assigned at Date Recorded Not on file documented as of this encounter Progress Notes Lizzy Pennington RN - 01/11/2012 8:59 AM EDT EXTREMITY TEAM NURSE VISIT Case Date: 06/21/2011 Surgeon:HENNA ROY JR, MD - Procedure(s): AMPUTATION, BELOW-KNEE Subjective: I think things are doing better all the way around. Objective: Patient arrived to clinic wearing his left leg prosthesis and a dressing and compression sleeve on the right. His incision is generally well approximated. There remain 3 open sites. Laterally he has a 19x 15 x 5mm wound with 20% thin loosely adherent slough layer that has a bright granulation bed and good bleeding after debridement. Centromedially there is a 9 x 9 x 6mm wound with 100% granulation base.The most medial measures 9 x 8 x 7mm. Both of these wounds are clean and [...] Daily his blood sugars have been > 80 and <200. He reports most readings between [...] sites rigorously to help debride the wound beds.Instructions given on the use of the new wound gel,expected outcomes and s/s to report. His mother does the dressings and assess wound healing. She was able to verbalize s/s to report. Patient to continue working with his out patient PT/OT for strengthening. VNA is seeing the patient weekly- family is able to perform dressing changes and recognize wound problems. He will continue to follow with his order entry clerk with respect to his blood sugars. He will call with any change in his incision, fever, chills, malaise or concerns about his stump. Supplies given: Normogel [address] Roy supervised this visit documented in this encounter Plan of Treatment Upcoming Encounters Date Type Specialty Care Team Description 05/26/2022 Office Visit Otolaryngology Ricardo Panda PA [facility] Dr [address], [place] [address] (Wo rk) 06/02/2022 Infusion Hematology and Oncology 06/16/2022 Infusion Hematology and Oncology 06/21/2022 Office Visit Neurology Tyler Rojas MD [facility] Medical [facility] er Neurology [place], [place] [phone] (Wo rk) 06/30/2022 Infusion Hematology and Oncology 07/14/2022 Infusion Hematology and Oncology 07/28/2022 Infusion Hematology and Oncology 08/11/2022 Infusion Hematology and Oncology 11/04/2022 Office Visit Rheumatology Dante Freedman PA [facility] RHEUMATOLOGY [place], [place] [address] (Wo rk) documented as of [...] Open wound(s) (multiple) of unspecified site(s), complicated Sensorineural hearing loss, bilateral S/P BKA (below knee amputation) Lower limb amputation, below knee Amputee, below knee Lower limb amputation, below knee documented in this encounter Care Teams Reconciliation Accountant Relationship Specialty Start Date End Date Candido Jenkins MD PCP - General 05/20/11 04/01/[address] [place] [address] documented as of this encounter
--- OUTSIDE RECORDS SUMMARY | 2022-05-24 11:00 | XMS_ITS | Encounter Summary ---
:1955 Author Organization [facility] [place] [address] Care Team Providers Name Role Phone Candido Jenkins MD Primary Care Provider Reason for Visit Reason Onset Date Comments Medication Refill 10/13/2011 Encounter Details Date Type Department Care Team Description 10/13/2011 Refill Solid Organ Transplant Karen Chino, S/P kidney transplant at [facility] (Primary Dx) [facility] [place] [address] TRANSPLANT SURGERY [phone] [place], [place] [address] (Wo rk) Social History Tobacco [...] Ricardo Panda PA [facility] Dr [address] [place] [address] (Wo rk) 06/02/2022 Infusion Hematology and Oncology 06/16/2022 Infusion Hematology and Oncology 06/21/2022 Office Visit Neurology Tyler Rojas MD [facility] Dr [place]i [place], [place] [address] (Wo rk) 06/30/2022 Infusion Hematology and Oncology 07/14/2022 Infusion Hematology and Oncology 07/28/2022 Infusion Hematology and Oncology 08/11/2022 Infusion Hematology and Oncology 11/04/2022 Office Visit Rheumatology Dante Freedman PA [facility] DR [place], [place] [address] (Wo rk) documented as of this encounter Visit Diagnoses Diagnosis S/P kidney transplant - Primary Kidney replaced by transplant documented in this encounter Care Teams Bureau Director Relationship Specialty Start Date End Date Candido Jenkins MD PCP - General 05/20/11 04/01/13 [address] [place] [address] documented as of this encounter
--- OUTSIDE RECORDS SUMMARY | 2022-05-24 11:00 | XMS_ITS | Encounter Summary ---
:1955 Author Organization [facility] [place] [address] Care Team Providers Name Role Phone Candido Jenkins MD Primary Care Provider Reason for Visit Reason Comments Wound Check s/p Right BKA Dos 06/21/11 Encounter Details Date Type Department Care Team Description 11/03/2011 Follow-Up Orthopaedics at [facility], DR FOSTER Type II diabetes mellitus wi th renal manifestations; [facility] D rive S/P BKA (below knee amputati on) - right lower extremity; [place] [address] Diabetes mellitus with neuro mendy; [phone] Delayed wound h ealing Social History Tobacco Use Types Packs/Day Years Used Date Former Smoker Cigarettes 2 20 Quit: 01/19/19 93 Smokeless Tobacco: Never Used Alcohol Use Standard Drinks/Week Comments No 0 (1 standard drink = 0.6 oz pure alcoho l) Sex Assigned at Date Recorded Not on file documented as of this encounter Progress Notes Lizzy Pennington RN - 11/03/2011 9:55 AM EDT LOWER EXTREMITY TEAM NURSE Case Date: 06/21/2011 Surgeon:HENNA GAMINO JR, MD - Primary SUSAN MEADE MD - Resident-Surgeon Jonn Diagnosis: Diabetes with neuropathy, chronic ankle infection Procedure(s): AMPUTATION, BELOW-KNEE Subjective: The A1c and the blood sugars are still up, I don't know why really. I have an appointment with the galilea Cole Next week. I feel fine. Objective: Patient arrived to clinic wearing his left leg prosthesis and a dressing and compression sleeve on the right. His incision is generally well approximated. Note superficial open area at the lateral and a spot medially. These areas have epithelialized. Laterally he has a 20 x 20 x 5mm wound with a thin slough layer that has a bright granulation bed after debridement. There are 2 opn areas medially The most medial measures 9 x 13 x 9mm This last site is deepest and has the thickest slough layer covering a pale pink wound bed. He is and has been afebrile. Blood sugars have been between 160 and 230 in the am for the last 3 weeks. Today his fasting sugar was 21. He had his HbA1c done last week and it was 8.5 this represents an increase. Procedure: The incision was washed with Hibiclenz, rinsed with nss and dried. All slough was sharplydebrided with sterile scissor, forceps and #15 blade. The wounds were then painted with Santyl and covered with a dsd then a compressogrip was applied to the stump. Plan: Dressing changes as above. Mom instructed to really scrub the most medial sites rigorously to help debride the wound beds. Leroy will try to remind her. Patient to continue working with his PT/OT for strengthening and safety with transfers and SN for wound checks. Mom will change the dressing when VNA is not scheduled. He will continue to follow with his nurse esthetician with respect to his blood sugars. He will call with any change in his incision, fever, chills, malaise or concerns about his stump. Dr. Subramanian supervised this visit documented in this encounter Miscellaneous Notes Miscellaneous - Jroje Nieves - 11/15/2011 8:45 AM EDT documented in this encounter Plan of Treatment Upcoming Encounters Date Type Specialty Care Team Description 05/26/2022 Office Visit Otolaryngology Ricardo Panda PA [facility] Dr [address] [place] [address] (Wo rk) 06/02/2022 Infusion Hematology and Oncology 06/16/2022 Infusion Hematology and Oncology 06/21/2022 Office Visit Neurology Tyler Rojas MD [facility] er Neurology [place], [place] [phone] (Wo rk) 06/30/2022 Infusion Hematology and Oncology 07/14/2022 Infusion Hematology and Oncology 07/28/2022 Infusion Hematology and Oncology 08/11/2022 Infusion Hematology and Oncology 11/04/2022 Office Visit Rheumatology Dante Freedman PA [facility] RHEUMATOLOGY [place], [place] [address] (Wo rk) documented as of [...] complicated documented in this encounter Care Teams Toll Ticket Clerk Relationship Specialty Start Date End Date Candido Jenkins MD PCP - General 05/20/11 04/01/[address] [place] [address] documented as of this encounter
--- OUTSIDE RECORDS SUMMARY | 2022-05-24 11:00 | XMS_ITS | Encounter Summary ---
:1955 Author Organization [place] [address] Care Team Providers Name Role Phone Candido Jenkins MD Primary Care Provider Encounter Details Date Type Department Care Team Description 06/21/2011 Anesthesia Event Main Operating Room Cheikh Padilla, [facility] Giovana tyler [place] [address] [place] [address] [phone] (Wo rk) Anesthesia Record Procedure Summary Procedure Name Responsible Anesthesia Start Anesthesia Stop Time Anesthesiologist Time @Uriah OLMOS Christopher, MD 06/21/11 1255 06/21/11 1515 BELOW-KNEE (WRVU 15.37) (Right Leg Lower) Events Date Time Event Comment 06/21/2011 1126 1255 Start 1515 Stop No medications on file. Agents No agents on file. Blood No blood administrations on file. Lines, Drains, and Airways Type Details Placement Removal PIV 06/21/11; (in place on 06/21/11 0000 by Slime, 1 08/25/10 1351 by Hayley, arrival from or); SHEILA Ugalde 06/24/11; 1351 Incision 06/21/11; 1329; leg; 06/21/11 1329 by Shantanu, 0646 by 02/09/22; 0646 SHEILA Sanford, Loretta Camejo RN documented in this encounter Social History Tobacco Use Types Packs/Day Years Used Date Former Smoker Cigarettes 2 20 Quit: 01/19/19 93 Smokeless Tobacco: Never Used Alcohol Use Standard Drinks/Week Comments No 0 (1 standard drink = 0.6 oz pure alcoho l) Sex Assigned at Date Recorded Not on file documented as of this encounter OR Notes Anesthesia Postprocedure Evaluation - Pancho Kruse MD - 06/22/2011 7:00 AM EST Patient: Leroy Torres Procedure(s) Performed: ??AMPUTATION, BELOW-KNEE - Additional CPT Codes: Equipment Needs:large oscillating saw Implants: Estimated case duration: Return visit for consent: no Does patient need to go to [facility] for testing?: yes H&P w/PCP: yes Add'l Preop Consults (Add Order in eDH): Add'l Preop Imaging (Add Order in eDH): Position: supine Post-op:10 days If you need post-op x-rays, please add them at the end of the SmartSet or as an Add Order Patient location: Med Surgical Floor Post-op pain: Adequate analgesia Post-op nausea: no nausea or vomiting Last Vitals: Filed Vitals: 06/22/11 0510 BP: 94/58 Pulse: 58 Temp: 36.7 ??C (98.1 ??F) Resp: 16 Post-op cardiovascular and respiratory status: is stable Level of consciousness: awake, alert and oriented Complications: bladder dysfunction, needed straight cath in PACU. Now voiding. Fluid Status: normal Anesthesia Procedure Notes - Agustin Woodson MD - 06/21/2011 11:18 AM EST Associated Order(s): ANESTHESIA BLOCK; ANESTHESIA BLOCK Procedure Block: Post-op Pain Control, sciatic and saphenous nerve block/mid thigh, sciatic/ popliteal nerve block Start time: 06/21/2011 11:02 AM End time: 06/21/2011 11:19 AM Indication/Prep Position: supine Prep: chlorhexidine and patient draped Laterality: right Ultrasound Guidance: live and in-plane Skin Medication lidocaine 1% 3 ml Injection Injection technique:single-shot Injection Pressure Monitoring: <15 PSI Needle Length: 10 cm Gauge: 21 Needle Type: [id number] Medication injection made incrementally with aspirations. Nerve infiltration solution through a needle Bupivicaine 0.5% and Other, see note 30 mL Additional Notes 23cc to Sciatic, 7cc to saph Performed by [place] Anesthesia Preprocedure Evaluation - Agustin Woodson MD - 06/21/2011 10:12 AM EST Anesthesia Evaluation No hx of anesthetic complications Airway Mallampati: II TM distance: >3 FB Neck ROM: full Dental (+) upper dentures Pulmonary Cardiovascular (+) hypertension, Neuro/Psych GI/Hepatic/Renal (+) GERD, Chronic renal disease: s/p renal transplant. Endo/Other (+) Type II DM, Abdominal Anesthesia Plan ASA 3 General and regional with intravenous induction Pt with DM s/p kidney transplant that is working well who presents for L BKA. He has already had a RBKA. No previous anesthetic complications. Will do Pop/sci with saph. GA with LMA. Anesthetic plan and risks discussed with patient. Plan discussed with attending and resident. documented in this encounter Miscellaneous Notes Addendum Note - Agustin Woodson MD - 06/22/2011 2:33 PM EST Addendum created 06/22/11 1433 by Agustin Woodson MD Modules edited:Inpatient Notes Addendum Note - Alejandra Calabrese - 06/22/2011 2:20 PM EST Addendum created 06/22/11 1420 by Alejandra Calabrese Modules edited:Anesthesia Events, Anesthesia Responsible Staff documented in this encounter Plan of Treatment Upcoming Encounters Date Type Specialty Care Team Description 05/26/2022 Office Visit Otolaryngology Ricardo Panda PA [facility] [address], [place] [address] (Wo rk) 06/02/2022 Infusion Hematology and Oncology 06/16/2022 Infusion Hematology and Oncology 06/21/2022 Office Visit Neurology Tyler Rojas MD [facility] er Neurology [place], [place] [phone] (Wo rk) 06/30/2022 Infusion Hematology and Oncology 07/14/2022 Infusion Hematology and Oncology 07/28/2022 Infusion Hematology and Oncology 08/11/2022 Infusion Hematology and Oncology 11/04/2022 Office Visit Rheumatology Dante Freedman PA [facility] RHEUMATOLOGY [place], [place] [address] (Wo rk) documented as of this encounter Visit Diagnoses Not on filedocumented in this encounter Care Teams Assistant Track Coach Relationship Specialty Start Date End Date Candido Jenkins MD PCP - General 05/20/11 04/01/13 [address] [place] [address] documented as of this encounter
--- OUTSIDE RECORDS SUMMARY | 2022-05-24 11:00 | XMS_ITS | Encounter Summary ---
:1955 Author Organization [facility] [place] [address] Care Team Providers Name Role Phone Candido Jenkins MD Primary Care Provider Reason for Visit Reason Comments Diabetes Encounter Details Date Type Department Care Team Description 08/09/2011 Office Visit Endocrinology at [facility] Margaret Ahuja, Diabetes mellitus [facility] CENTER MEDICAL AND LAB DIRECTOR (Primary Dx) [place] [address] CENTER [phone] ENDOCRINOLOGY DEPT. [place], [place] [address] Social History Tobacco Use Types [...] Sign Reading Time Taken Comments Blood Pressure 133/77 08/09/2011 11:19 AM EST Pulse 64 08/09/2011 11:19 AM EST Temperature - - Respiratory Rate 20 08/09/2011 11:19 AM EST Oxygen Saturation - - Inhaled Oxygen - - Concentration Weight 127.5 kg (281 lb) 08/09/2011 11:19 AM unable to stand; 281 EST via bed scale 3 wks ago Height 193 cm (6' 4) 08/09/2011 11:19 AM EST Body Mass Index 34.2 08/09/2011 11:19 AM EST documented in this encounter Patient Instructions Patient InstructionsMargaret Sawyer APRN - 08/09/2011 11:46 AM EST Increase PM NPH insulin dose to 45 units for one week to reach target glucose in AM of under 120. May need 50 units to reach target glucose level documented in this encounter Progress Notes Margaret Sawyer APRN - 08/09/2011 12:27 PM EST OFFICE VISIT NOTE DATE OF VISIT: 08/09/2011 REASON FOR VISIT: Followup DM with many complications. BRIEF HISTORY: Presents with mother and sister. Sister also has DM. Brings written glucose log. Most glucose levels are over 200. DIABETES REGIMEN: NPH 70 units a.m., 40 units p.m. and NovoLog up to 50 units before meals three times a day. COMPLICATIONS: Had recent right BKA on 07/04. Has left amputation as well. Also, has chronic kidney disease. Prevention strategies are up-to-date. REVIEW OF SYSTEMS: Depression and Mood: States overall he is doing okay. Eyes: No recent vision changes. No recent headaches or chest pain or shortness of breath. GI Symptoms: Takes Prilosec. Sleep Pattern: States he has been started on a sleep medication which he thinks helps a little. 24-HOUR MEAL PLAN: Breakfast is two toasts with peanut butter. Lunch is sandwich or soup. Dinner was tuna, peas, and pasta casserole. Evening snack is crackers and cheese or popcorn with cheese. PHYSICAL ACTIVITY: Plans to start physical therapy when right BKA site heals. Has visiting nurse for dressing changes. PHYSICAL EXAMINATION: Appearance: He is in a wheelchair. He is obese. Weight today was approximately 281 pounds. Not able to stand to be weighed. Blood pressure 133/70. Eyes: No retinopathy by green light exam. Neck: No thyromegaly or lymphadenopathy. Heart: Regular rate and rhythm. No murmurs. Lungs are clear to auscultation. No labs were done today. IMPRESSION AND PLAN: Reviewed written blood glucose log. Advised to target a glucose level of 120 or less before meals. Will increase p.m. dose of NPH to 45 units for the next week. If no fasting glucose levels are under 120, then increase PM dose up to 50 units, may need 55 or 60 units while amputation site is healing. Also, the patient asks about dosage for aspirin. I advised him to continue 325 mg daily and to discuss with Dr. Roy whether to lower it to 81 mg which he was taking prior to surgery. Blood pressure is at goal. Goal for this visit to next visit is to attempt a 5- to 10-pound weight loss by eating smaller portions. Return to office in three months. Will check hemoglobin A1c and other labs that he is due for. This was a 30-minute office visit with 29 minutes spent counseling with the patient, mother, and sister regarding target blood glucose ranges and reviewing a healthy meal plan with smaller portions. documented in this encounter Plan of Treatment Upcoming Encounters Date Type Specialty Care Team Description 05/26/2022 Office Visit Otolaryngology Ricardo Panda PA [facility] Dr [place], [place] [address] (Wo rk) 06/02/2022 Infusion Hematology and Oncology 06/16/2022 Infusion Hematology and Oncology 06/21/2022 Office Visit Neurology Tyler Rojas MD [facility] Neurology [place], [place] [phone] (Wo rk) 06/30/2022 Infusion Hematology and Oncology 07/14/2022 Infusion Hematology and Oncology 07/28/2022 Infusion Hematology and Oncology 08/11/2022 Infusion Hematology and Oncology 11/04/2022 Office Visit Rheumatology Dante Freedman PA [facility] RHEUMATOLOGY [place], [place] [address] (Wo rk) Scheduled Orders Name Type Priority Associated Diagnoses Order S nazdule Comprehensive metabolic Lab Routine Diabetes mellitus Expected: 11/08/2011 panel (non-fasting) (Approxi mate), Expires: 2011 Hemoglobin A1c Lab Routine Diabetes mellitus Expected : 11/08/2011 (Approximate), Expires: 2011 HDL/Cholesterol Profile Lab Routine Diabetes mellitus Expected: 11/08/2011 (Approximate), Expires: 2011 LDL Cholesterol, Direct Lab Routine Diabetes mellitus Expected: 11/08/2011 (Approximate), Expires: 2011 documented as of this encounter Visit Diagnoses Diagnosis Diabetes mellitus - Primary Type II or unspecified type diabetes fredo litus without mention of complication, not stated as uncontrolled documented in this encounter Care Teams Bi Consultant Relationship Specialty Start Date End Date Candido Jenkins MD PCP - General 05/20/11 04/01/13 [address] [place] [address] documented as of this encounter
--- OUTSIDE RECORDS SUMMARY | 2022-05-24 11:00 | XMS_ITS | Encounter Summary ---
:1955 Author Organization [place] [place] [address] Care Team Providers Name Role Phone Candido Jenkins MD Primary Care Provider Reason for Visit Reason Comments Follow Up Surgery s/p Right BKA Dos 06/21/11 Encounter Details Date Type Department Care Team Description 09/30/2011 Follow-Up Orthopaedics at [facility], DR FOSTER Diabetes mellitus with neuro mendy; [facility] D rive S/P BKA (below knee amputati on) - right lower extremity; [place] [address] Amputee, below knee, L; [phone] Delayed wound h ealing Social History Tobacco Use Types Packs/Day Years Used Date Former Smoker Cigarettes 2 20 Quit: 01/19/19 93 Smokeless Tobacco: Never Used Alcohol Use Standard Drinks/Week Comments No 0 (1 standard drink = 0.6 oz pure alcoho l) Sex Assigned at Date Recorded Not on file documented as of this encounter Progress Notes Lizzy Pennington RN - 09/30/2011 3:30 PM EST LOWER EXTREMITY TEAM NURSE Case Date: 06/21/2011 Surgeon:HENNA ROY JR, MD - Primary SUSAN MEADE MD - Resident-Surgeon Jonn Diagnosis: Diabetes with neuropathy, chronic ankle infection Procedure(s): AMPUTATION, BELOW-KNEE 12 weeks post surgical procedure above Subjective: No more falling but I can't get the sugars to stay under control. Objective: Patient arrived to clinic wearing his left leg prosthesis and a dressing and compression sleeve on the right. His incision is generally well approximated. Note superficial open area at the lateral and a spot medially. These areas have almost fully granulated and epithelialized. The 2 deeperareas ( one lateral and 1pole and 1 more shallow one more medially) have cleared of all eschar. The lateral open area continues the deepest of all the sites and measures 6mm. There is thick slough in the wound bed but it does bleed during debridement.This site does not have any evidence of granulationat this point. All other sites are covered with thin slough but clean to healthy granulation. There is no erythema, pain or fluctuance about the stump at all. Drainage is clear and serous from the lateral sites only all the remaining incision is free from any drainage. He is and has been afebrile. Blood sugars have been between 106 and 230 in the am for the last 3 weeks. Procedure: The incision was washed with [...] He will continue to follow with his knock up assembler with respect to his blood sugars. He will call with any change in his incision, fever, chills, malaise or concerns about his stump. Dr. Roy supervised this visit documented in this encounter Plan of Treatment Upcoming Encounters Date Type Specialty Care Team Description 05/26/2022 Office Visit Otolaryngology Ricardo Panda PA [facility] Dr [place] [address] (Oscar escobedo) 06/02/2022 Infusion Hematology and Oncology 06/16/2022 Infusion Hematology and Oncology 06/21/2022 Office Visit Neurology Tyler Rojas MD [facility] [place] [phone] (Oscar escobedo) 06/30/2022 Infusion Hematology and Oncology 07/14/2022 Infusion Hematology and Oncology 07/28/2022 Infusion Hematology and Oncology 08/11/2022 Infusion Hematology and Oncology 11/04/2022 Office Visit Rheumatology Dante Freedman PA [facility] [place]HEUMATOLOGY [place], [place] [address] (Wo rk) documented as of this encounter Visit Diagnoses Diagnosis Diabetes mellitus with neuropathy Type II or unspecified type diabetes fredo litus with neurological manifestations, not stated as uncontrolled S/P BKA (below knee amputation) - right lower extremity Lower limb amputation, below knee Amputee, below knee, L Lower limb amputation, below knee Delayed wound healing Open wound(s) (multiple) of unspecified site(s), complicated documented in this encounter Care Teams Soda Dialyzer Relationship Specialty Start Date End Date Candido Jenkins MD PCP - General 05/20/11 04/01/[address] [place] [address] documented as of this encounter
--- OUTSIDE RECORDS SUMMARY | 2022-05-24 11:00 | XMS_ITS | Encounter Summary ---
:1955 [place] [address] Care Team Providers Name Role Phone Candido Jenkins MD Primary Care Provider Encounter Details Date Type Department Care Team Description 10/05/2011 Office Visit Audiology at [facility] Mindy Moody, Sensorineural hearing [facility] AUD loss, bilateral Drive [facility] (Primary Dx) [place] [employer], [place] CENTER [address] AUDIOLOGY DEPT [phone] [place], [place] [address] Social History Tobacco Use Types Packs/Day Years Used Date Former Smoker Cigarettes 2 20 Quit: 01/19/19 93 Smokeless Tobacco: Never Used Alcohol Use Standard Drinks/Week Comments No 0 (1 standard drink = 0.6 oz pure alcoho l) Sex Assigned at Date Recorded Not on file documented as of this encounter Progress Notes Mindy Joiner, AUD - 10/05/2011 10:00 AM EDT AUDIOLOGY SECTION HEARING AID SELECTION APPOINTMENT Leroy Torres returns today for a hearing aid selection appointment. A hearing evaluation performed in July 2011 showed bilateral sensorineural hearing loss, for which the fitting of hearing aidswas recommended. Mr. Torres identified several situations in which he experiences significant hearing difficulty, which included understanding speech, especially in the presence of background noise and without use of visual cues. Mr. Torres was counseled regarding hearing aid styles. In consideration of Mr. Torres's auditory demands and degree/configuration of hearing loss, it was agreed that Dimitri Ignite 20 ITC hearing aids would be adequate for his needs. Earmold impressions were taken of both ears without incident. Mr. Torres was counseled about the terms of the purchase and the thirty day return privilege. Although medical clearance was recommended prior to the new hearing aid fitting, Mr. Torres opted to sign the medical clearance waiver. The New Hearing Instruments: Itemized Fees form was reviewed and signed by Mr. Torres. He qualifies for hearingaid coverage through [place] Medicaid. PLAN Return to clinic for fitting of binaural hearing aids Antonio Blue, Direct Mail Marketer [facility] [place] [address] ; [phone] (fax) documented in this encounter Plan of Treatment Upcoming Encounters Date Type Specialty Care Team Description 05/26/2022 Office Visit Otolaryngology Ricardo Panda PA [facility] [place], [place] [address] (Wo rk) 06/02/2022 Infusion Hematology and Oncology 06/16/2022 Infusion Hematology and Oncology 06/21/2022 Office Visit Neurology Tyler Rojas MD [facility] Neurology [place], [place] [phone] (Wo rk) 06/30/2022 Infusion Hematology and Oncology 07/14/2022 Infusion Hematology and Oncology 07/28/2022 Infusion Hematology and Oncology 08/11/2022 Infusion Hematology and Oncology 11/04/2022 Office Visit Rheumatology Dante Freedman PA [facility] RHEUMATOLOGY [place], [place] [address] (Wo rk) documented as of this encounter Visit Diagnoses Diagnosis Sensorineural hearing loss, bilateral - Primary documented in this encounter Care Teams Icing Mixer Relationship Specialty Start Date End Date Candido Jenkins MD PCP - General 05/20/11 04/01/13 [address] [place] [address] documented as of this encounter
--- OUTSIDE RECORDS SUMMARY | 2022-05-24 11:00 | XMS_ITS | Encounter Summary ---
:1955 Author Organization [facility] [place] [address] Care Team Providers Name Role Phone Candido Jenkins MD Primary Care Provider Reason for Visit Reason Onset Date Comments Medication Refill 12/17/2011 Encounter Details Date Type Department Care Team Description 12/17/2011 Refill Solid Organ Transplant Karen Chino, Transplanted kidney at [facility] MOBILE BATTERY TECHNICIAN (Primary Dx) [facility] [place] [address] TRANSPLANT SURGERY [phone] [place], [place] [address] (Wo rk) Social History Tobacco [...] PA [facility] Dr [place] [address] (Wo rk) 06/02/2022 Infusion Hematology and Oncology 06/16/2022 Infusion Hematology and Oncology 06/21/2022 Office Visit Neurology Tyler Rojas MD [facility] Dr [place], [place] [phone] (Wo rk) 06/30/2022 Infusion Hematology and Oncology 07/14/2022 Infusion Hematology and Oncology 07/28/2022 Infusion Hematology and Oncology 08/11/2022 Infusion Hematology and Oncology 11/04/2022 Office Visit Rheumatology Dante Freedman PA [facility] DR [place], [place] [address] (Wo rk) documented as of this encounter Visit Diagnoses Diagnosis Transplanted kidney - Primary Kidney replaced by transplant documented in this encounter Care Teams Tank Truck Loader Relationship Specialty Start Date End Date Candido Jenkins MD PCP - General 05/20/11 04/01/13 [address] [place] [address] documented as of this encounter
--- OUTSIDE RECORDS SUMMARY | 2022-05-24 11:00 | XMS_ITS | Encounter Summary ---
:1955 Author Organization [facility] [place] [address] Care Team Providers Name Role Phone Candido Jenkins MD Primary Care Provider Reason for Visit Reason Comments Wound Check Right BKA Dos 06/21/11 Encounter Details Date Type Department Care Team Description 07/08/2011 Follow-Up Orthopaedics at [facility], DR CRSITIAN Olsen, below knee, L; [facility] Giovana Roblero's arthropathy, diabe tic, R; [place] [address] Diabetes mellitus with neuro mendy; [phone] Tremor, essenti al; S/P BKA (below knee amputation) - right lower extremity Social History Tobacco Use Types Packs/Day Years Used Date Former Smoker Cigarettes 2 20 Quit: 01/19/19 93 Smokeless Tobacco: Never Used Alcohol Use Standard Drinks/Week Comments No 0 (1 standard drink = 0.6 oz pure alcoho l) Sex Assigned at Date Recorded Not on file documented as of this encounter Progress Notes Lizzy Pennington RN - 07/08/2011 1:05 PM EST LOWER EXTREMITY TEAM NURSE Case Date: 06/21/2011 Surgeon:HENNA GAMINO JR, MD - Primary SUSAN MEADE MD - Resident-Surgeon Jonn Diagnosis: Diabetes with neuropathy, chronic ankle infection Procedure(s): AMPUTATION, BELOW-KNEE 17 days post surgical procedure above Subjective: Im so happy to be home now. The visiting nurses and therapists are seeing me at home and I think everything is going along smooth. Objective: Patient arrived to clinic wearing his left leg prosthesis and a dressing and compression sleeve on the right. His incision is well approximated. There is some scabbing along the lateral incision.There is some central redness and swelling but this is improved over the last visit. Rolando a central and medial draining site. Drainage is clear and serous. There is no purulent drainage. He is and has been afebrile. He reports multiple med changed when he was at rehab and has had difficulty regulation his blood sugars. Most of his readings for the past 2-3 weeks have been high (200 - 300). Procedure: Sutures removed and replaced with Sterristrips in the areas where he is not draining or red. Plan: Patient to continue working with his PT/OT and SN. Mom will change the dressing when VNA is not scheduled. Bactroban and Xeroform to the incision. He has an appointment with his PCP, I have askedthat he bring a diary of his BS results and have his PCP review. He will call with any change in his incision, fever, chills, malaise or concerns about his stump. Dr. Benitez supervised this visit documented in this encounter Plan of Treatment Upcoming Encounters Date Type Specialty Care Team Description 05/26/2022 Office Visit Otolaryngology Ricardo Panda PA [facility] [address] [place], [place] [address] (Wo rk) 06/02/2022 Infusion Hematology and Oncology 06/16/2022 Infusion Hematology and Oncology 06/21/2022 Office Visit Neurology Tyler Rojas MD [facility] Neurology [place], [place] [phone] (Wo rk) 06/30/2022 Infusion Hematology and Oncology 07/14/2022 Infusion Hematology and Oncology 07/28/2022 Infusion Hematology and Oncology 08/11/2022 Infusion Hematology and Oncology 11/04/2022 Office Visit Rheumatology Dante Freedman PA [facility] RHEUMATOLOGY [place], [place] [address] (Wo rk) documented as of this encounter Visit Diagnoses Diagnosis Amputee, below knee, L Lower limb amputation, below knee Charcot's arthropathy, diabetic, R Type II or unspecified type diabetes fredo litus with neurological manifestations, not stated as uncontrolled Tremor, essential Essential and other specified forms of t remor S/P BKA (below knee amputation) - right lower extremity Lower limb amputation, below knee documented in this encounter Care Teams Signal Operator Linguist Relationship Specialty Start Date End Date Candido Jenkins MD PCP - General 05/20/11 04/01/13 [address] [place] [address] documented as of this encounter
--- OUTSIDE RECORDS SUMMARY | 2022-05-24 11:00 | XMS_ITS | Encounter Summary ---
:1955 Author Organization [facility] [place] [address] Care Team Providers Name Role Phone Candido Jenkins MD Primary Care Provider Encounter Details Date Type Department Care Team Description 06/21/2011 - [address] Sylvia GaminoNarayan Open wound o f right ankle; 06/24/2011 Encounter Allison Alex MD Diabetes mellitus with neuropathy; [facility] MEDICAL Transplant kidney; [facility] HTN (hypertension); [facility] ORTHOPAEDIC Puncture wound of thumb, lef t; [place], [place] SURGERY Tremor, essential; [id number] [place], [place] Hypercholesteremia [phone] [id number] Social History Tobacco Use Types Packs/Day Years Used Date Former Smoker Cigarettes 2 20 Quit: 01/19/19 93 Smokeless Tobacco: Never Used Alcohol Use Standard Drinks/Week Comments No 0 (1 standard drink = 0.6 oz pure alcoho l) Sex Assigned at Date Recorded Not on file documented as of this encounter Last Filed Vital Signs Vital Sign Reading Time Taken Comments Blood Pressure 97/57 06/22/2011 2:07 PM EST Pulse 63 06/22/2011 2:07 PM EST Temperature 36.6 ??C (97.9 ??F) 06/22/2011 2:07 PM EST Respiratory Rate 16 06/22/2011 2:07 PM EST Oxygen Saturation 94% 06/22/2011 2:07 PM EST Inhaled Oxygen Concentration - - Weight - - Height - - Body Mass Index - - documented in this encounter Discharge Instructions Patient Carrie Ambrose APRN - 06/22/2011 2:28 PM EST DISCHARGE INSTRUCTIONS: Activity: You are to remain strictly NON-weight bearing on your right leg remembering to use a walker or crutches at all times for balance and protection. Continue to use your wheelchair as necessary. You should keep your stump elevated as much as possible to decrease swelling. If possible, you shouldlie on your stomach for at least 1 hour per day to prevent your hip muscles from shortening. Diet:Diabetic, renal, low potassium diet, but increase your intake of fluids and fiber while you areon narcotic pain meds to prevent constipation. You should also increase your intake of high protein fluids and foods to promote wound healing. Driving: None until you are cleared to do so by your orthopedic surgeon. Ideally you should not drive while you are on narcotic pain meds as they can impede your judgement and affect your reaction time. Call your surgeon if you have any questions or concerns. Anticoagulation:You have been discharged on Aspirin 325 mg twice daily for 2 -4 weeks or until your mobility improves. This medication will help decrease your chance of developing a blood clot. Ask your Orthopedic physician when you should stop taking the Aspirin. Medications: 1. The pain medication you are on can cause constipation so increase your intake of fluids and fiberwhile you are on them. The stool softener that was prescribed, sennakot, can also be taken to facilitate a bowel movement. You can try an yogw-qrb-paqammd medication, miralax if needed. 2. When you are discharged from rehab if you need a renewal on your narcotic pain medication, you need to give the Orthopedic clinic enough time to process your request. This can take up to three days,so plan accordingly. You will be on the oxydocone for a limited period of time. Your pain control will be transitioned to your PCP most likely prior to your 1st followup appointment. 3. The charts below will let you know of any medication changes that might have occured during your hospital stay. Wound 1. Suture/staple removal - this will likely be done at your first follow-up appointment. 2. DO NOT submerge the incision or stump. Remember to maintain your activity restrictions - STRICT non-weight bearing on your right leg. It might be easier for you to sponge bathe until your follow-up appointment. 3. Change your dressing daily with a dry sterile dressing. You MUST keep your dressing clean and dry. DO NOT apply any lotion or ointment to your incision or stump. 4. Call your orthopaedic surgeon (#[phone]) with any fever, chills, sweats, redness or discharge from the wounds. 5. Daily dressing changes should be done with dry sterile gauze, and then apply an IFTIKHAR wrap. You should keep your incision/stump covered until you are told otherwise by your surgeon. Misc: Remember that ICE and elevation are very important after surgery to help decrease swelling andcontrol pain. Use ICE for 20-30 minutes at a time and keep your leg elevated as much as possible. Call your doctor if: - You have a fever greater than 101.5 degrees F or experience chills - Increased discharge from the incision - Any redness or swelling around the incision - Increased pain or change in the pain that is not controlled by pain medications documented in this encounter Medications at Time of Discharge Medication Sig Dispensed Refills Start Date End Date acetaminophen (TYLENOL) Take 2 tablets by 30 tablet 0 06/2403/17/2012 500 mg tablet mouth every 8 hours as needed for Pain. aspirin 325 mg tablet Take 1 tablet by 30 tablet 1 06/24/20 11 08/24/2011 mouth 2 times daily. mycophenolate (CELLCEPT) Take 2 capsules by 60 capsule 1 07/201012/17/2011 250 mg mouth 2 times daily. capsuleIndications: Transplant kidney insulin aspart (NOVOLOG) Inject 3-12 Units 20 mL 3 07/201011/08/2011 100 unit/mL pen subcutaneously 4 injection times daily. losartan (COZAAR) 50 mg Take 1 tablet by 30 tablet 11 201010/31/2014 tabletIndications: HTN mouth daily. (hypertension) senna-docusate Take 1-4 tablets by 60 tablet 1 06/24/2011 0 03/17/2012 (PERICOLACE) 8.6-50 mg mouth 2 times daily per tablet as needed for Constipation. Propranolol (INDERAL LA) Take 1 capsule by 180 capsule 0 01/201108/23/2011 160 mg CR mouth 2 times daily. capsuleIndications: Tremor, essential folic acid (FOLVITE) 1 Take 2 mg by mouth 0 02/03/2017 mg tablet daily. simvastatin (ZOCOR) 10 Take 1 tablet by 30 tablet 11 011 03/17/2015 mg tabletIndications: mouth nightly. Hypercholesteremia PROGRAF 1 mg Take 1 capsule by 180 capsule 3 03/24/20112 07/2011 capsuleIndications: mouth 2 times daily. Transplant kidney fluticasone (FLONASE) 50 1 spray by Each Nare 0 08/29/2012 mcg/Actuation nasal route as needed. spray montelukast (SINGULAIR) Take 10 mg by mouth 0 05/27/2021 10 mg tablet daily. omeprazole (PRILOSEC) 40 Take 40 mg by mouth 0 02/03/2017 mg capsule daily. documented as of this encounter Progress Notes Nicky Hardy - 06/24/2011 1:53 PM EST IV dc'd and pt education for discharge completed with pt verbalizing complete understanding of same.Awaiting transport arrival to bring pt to rehab. Report called to rehabilitation liaison. Patricia Koo - 06/24/2011 12:38 PM EST Office of Care Management/Clinical Business Manager Group 2 Patient Name: Leroy Dailey : 1955 Patient has been offered a swing bed at [facility]. [facility] arranged for a 1:30pm transport. Ambulance will need: Medicare ambulance form completed and signed (MD or CRC) Copy of patient demographics [place] [facility] Hospital DNR/DNI order, if active No MD to MD report necessary. Please call Nursing Report to , ask for bacon de rinder. Info to accompany patient: Narcotic Prescriptions Copies of Medication Administration Records and IV sheets for past two weeks. Plan: Clinical Business Manager will be available to the patient and CRC for further assistance. PATRICIA SAAVEDRA, Clinical Business Manager Pager [phone] Miles Mccabe MD - 06/24/2011 5:57 AM EST ORTHOPAEDIC PROGRESS NOTE SURGERY/ISSUE: R BKA Patient Active Problem List Diagnoses Code ??? Amputee, below knee V49.75M ??? 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ifestations 250.40D ??? End stage renal disease 585.6 ??? Diabetes mellitus with neuropathy 250.60DQ ??? Charcot's arthropathy, diabetic, R 250.60HA ??? Wound 959.9BN ??? Tremor, essential 333.1W ??? Open wound of right ankle 891.0FN ??? S/P BKA (below knee amputation) - right lower extremity V49.75D No past medical history on file. Interval History: + n/v yesterday. Pain well controlled. Denies CP/SOB/N/V. Temp: [36.6 ??C (97.9 ??F)-38.3 ??C (100.9 ??F)] Heart Rate: [65-78] Resp: [18-20] BP: (110-136)/(49-67) SpO2: [95 %-98 %] I/O last 3 completed shifts: In: 1600 [P.O.:1600] Out: 2525 [Urine:2525] PE: NAD RRR per palpation Abdomen - mildly distended RLE Dressing C/D/I, Incision w/out E/I/D Lab Results Component Value Date WBC 15.4* 06/24/2011 RBC 3.74* 06/24/2011 HGB 11.4* 06/24/2011 HCT 35.7* 06/24/2011 PLATELET 168 06/24/2011 NA 139 06/24/2011 NA 139 06/24/2011 K 4.6 06/24/2011 K 4.6 06/24/2011 CO2 19* 06/24/2011 CO2 19* 06/24/2011 BUN 42* 06/24/2011 BUN 42* 06/24/2011 CREATININE 2.02* 06/24/2011 CREATININE 2.02* 06/24/2011 A/P: Patient appears stable this AM. Issues with N/V yesterday. Improved this AM. Creatinine improved from yesterday. Pain controlled. Will work towards rehab, possibly today. Activity: NWB RLE Pain Control: PO Anticoagulation: ASA BID Dressing/Spints: Change daily Dispo: d/c to rehab when medically stable Andria Franco RN - 06/23/2011 9:58 PM EST [id number] Patient sleepy tonight, but was able to answer my questions appropriately and correctly. MD called early in the shift due to patients sleepiness and also his distended abdomen. Bowel sounds within normal limits and late this evening had loose watery brown stool, medium amount. Voids in urinal adequateamounts. Lung sounds coarse bilaterally, coughing but no production. IS encouraged, his temperature at HS vital 37.6. Dressing to right leg aced wrapped with no drainage. IVF infusing to right hand, normal saline. Masimo on, call light within reach. Joyce Allen, PT - 06/23/2011 4:06 PM EST Physical Therapy Evaluation Patient profile: Pt. is a 56 y.o. with h/x of L BKA. male admitted on 06/21/2011 by Narayan Snowden Jr., MD for RBKA secondary to Charcot foot, nonhealing ulcer. . Social History: Patient lives with his mother in [facility], Stairs: 0 Baseline Mobility: independent with L LE prosthesis, had stopped using a cane Equipment at home: 2 walkers, WC, cane, LLE prosthesis Interval history: Pt with nausea/vomiting, more RLE pain today. Precautions/Special Considerations: L BKA, new R BKA, LUE fistula, glasses Subjective: ???I don't feel like sitting at the EOB. My leg is hurting a lot?? Objective: Pt seen for there-ex today. Pt able to asst with bed mobility, coughing, RLE exs. Pain:having much more RLE pain today after dressing change, also reports feeling awful from vomiting Vital Signs: Sp02: 99on 2L, 89 %on RA, HR: 84 IS: NT today Mental Status: alert, oriented to person, place, and time, jokes around a lot Musculoskeletal: ROM: WFL UEs Strength: Using UEs to pull on trapeze, tendency to hold his breath Sensation: WFL UEs Bed Mobility: able to use trapeze to help with boost, cues not to hold his breath, desatted on RA Transfers: deferred today, pt sleepy, c/o pain, not feeling well Gait: NT, start WC mobility as tolerated Informed Consent: The patient agrees to and understands the PT treatment plan and goals. Education: family and patient have been educated on Bed mobility, Transfers, Exercise, Positioning, Safety , Role of therapy and Discharge planning and verbalize understanding. Patient status, treatment, and mobility recommendations discussed with nursing. Assessment: Pt not feeling well today, had a rough morning with nausea and vomiting, having pain issues in pm, much sleepier than yesterday, likely from meds. Able to do some exs and reposition in bed Tolerated HOB and near chair position. Goals: To be achieved by Jun 25, 2011 1. Pt. to demonstrate knowledge of precautions and safety concerns during functional activities. 2. Pt. to demonstrate understanding of appropriate exercises 3. Pt. to perform bed mobility with trapeze 4. Pt. to perform transfers with min assist of 2 utilizing a rolling walker and LLE prosthesis 5. Pt. to propel WC independently x 150 ft 6. Family to demonstrate understanding of therapeutic interventions to support the care of the patient. Plan: Pt to be seen 4-5 times per week for therapy including Bed mobility, Transfers, Exercise, Positioning, Safety , Role of therapy, Balance, Discharge planning and WC mobility. Patient agrees with plan asstated above. Equipment needs: Cane, Rolling walker, Raised toilet seat with arms, Wheelchair and shrinkers, LLE prosthesis, pt interested in Lofstrands when able to progress with RLE prosthesis Discharge Recommendations: Patient will require 24/ supervision and assistance. Patient would benefit and tolerate continued daily intensive therapy interventions to maximize functional independence. Occupational Therapy consult Total time spent with patient: 18 minutes Total timed interventions:18 minutes functional JOYCE CHERY PT 06/23/2011 Pager:[phone] Physical Therapy Rehabilitation Department Stephanie Barker, OT - 06/23/2011 10:00 AM EST Occupational Therapy Note Checked in with nursing this morning. Pt nauseous and unable to participate. This therapist unable to follow up in the pm. Stephanie Borrego, OTR Pager [phone] Miles Mccabe MD - 06/23/2011 7:51 AM EST ORTHOPAEDIC PROGRESS NOTE SURGERY/ISSUE: R BKA Patient Active Problem List Diagnoses Code ??? Amputee, below knee V49.75M ??? 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ifestations 250.40D ??? End stage renal disease 585.6 ??? Diabetes mellitus with neuropathy 250.60DQ ??? Charcot's arthropathy, diabetic, R 250.60HA ??? Wound 959.9BN ??? Tremor, essential 333.1W ??? Open wound of right ankle 891.0FN ??? S/P BKA (below knee amputation) - right lower extremity V49.75D No past medical history on file. Interval History: Fever overnight. Pain adequately controlled. Denies CP/SOB/N/V. Temp: [36.6 ??C (97.9 ??F)-39.5 ??C (103.1 ??F)] Heart Rate: [56-86] Resp: [16-24] BP: (96-141)/(50-73) SpO2: [90 %-99 %] I/O last 3 completed shifts: In: 2775 [P.O.:1600; I.V.:1175] Out: 2275 [Urine:2275] PE: NAD Dressing C/D/I, Incision w/out E/I/D (dressing changed) Lab Results Component Value Date WBC 15.5* 06/23/2011 RBC 3.91* 06/23/2011 HGB 11.8* 06/23/2011 HCT 37.8* 06/23/2011 PLATELET 207 06/23/2011 NA 137 06/23/2011 K 4.9 06/23/2011 CO2 18* 06/23/2011 BUN 44* 06/23/2011 CREATININE 2.32* 06/23/2011 A/P: Patient appears stable this AM. Pain controlled. Will work towards rehab. Of note patient's creatinine increasing. Patient's hyponatremia yesterday of 133 appears improved today. Will continue to monitor. ?? Activity: NWB RLE ?? Pain Control: PO ?? Anticoagulation: ASA BID ?? Dressing/Spints: Change daily ?? Dispo: d/c to rehab when medically stable Ashley De Leon RN - 06/22/2011 9:45 PM EST Pt with temp of 39.5F. MD aware. RN encouraged pt to use incentive spirometer, and drink plenty of fluids. RN administered tylenol. Will continue to monitor. Ashley De Leon RN - 06/22/2011 9:25 PM EST Assumed pt care at 1900. Pt alert and oriented x 3. Heart rate regular. Lungs coarse bilaterally. Pt's pulses palpable in upper extremeties bilaterally. Pt denies SOB and chest pain. Pt is voiding adequate amounts of clear, yellow urine. Active bowel sounds. Pt denies n/v. Pt has IV access in R upper e xtremity. Pt has R BKA iftikhar dressing clean, dry and intact. Pt rates pain 3/10, which he states is acceptable after oral pain medication. Will continue to monitor. Andria Vazquez RN - 06/22/2011 6:42 PM EST 1840 called regarding increased temperature, no new orders, continue to monitor. Stephanie Borrego OT - 06/22/2011 3:50 PM EST Occupational Therapy Evaluation Patient profile: Leroy Dailey is a 56 y.o. male patient of Narayan Snowden Jr., MD, admitted on 06/21/2011 for RBKA secondary to Charcot foot, nonhealing ulcer. Past Surgical History Procedure Date ??? Created [...] BELOW-KNEE performed by NARAYAN GAMINO JR at [facility] MA[facility] OR Social History: Patient lives with his mother and is able to function on one level. Has no stairs to enter home. Pt has a walk in shower with grab bars, and higher toilet with vanity on one side. He was standing on one leg to shower prior to this admission. Baseline ADL/Mobility: Independent with ADLs and mobility (wearing prothesis on L). He is disabled and not employed. Equipment at home: 2 walkers, WC, cane, LLE prosthesis Precautions/Special Considerations: L BKA, new R BKA, LUE fistula, glasses Subjective: It's been 12 years and I still think I have toes on the L. Objective: Seen today for OT evaluation. Cognitive Status/Behavior: alert, oriented to person, place, and time. Pt cooperative and pleasant. Vision & Perception: wears bifocals, and able to read clock and numbers on phone. Range of motion, strength, coordination: Hand dominance: right Bilateral UEs are within functional limitations- though note tremor with movement. Reports baseline intentional tremors. S/p B BKAs; able to lift stumps to remove pillows; and extend legs bilaterally (ie. Pushing knee capinto bed) Sensation: hypersensitive to movement/touch of R stump, and still with phantom sensations of L LE Activities of Daily Living: Self-feeding: Independent with setup. Prefers to use covered cups 2' baseline tremor (ie. Travel cup) Hygiene grooming: Independent with set-up, sitting upright in bed. Pt not interested in doing task eob today 2' pain R stump. Upper and lower body self care and bathing: ?? Pt asking OT for assistance to don gambling floor supervisor on L stump. Pt turning beat red when attempt to don gambling floor supervisor over stump, while long sitting in bed. ?? Pt required min A to help switch out gown and set it up. ?? Pt was able to wash up seated in bed after set-up (minus back). Pt though able to pull forwards on therapists arm (as lever) and do a sit up, so OT could wash his back. Toileting: dixon catheter out, and using urinal on his own. L LE not locking into prothesis today 2'swelling. Pt plans to use bedpan over night if needed, and will re-assess tomorrow if can use commode. Functional Mobility: Supine to long sit: minimal assist with HOB raised Sit to stand: N/A - as prothesis not fitting properly on L LE and locking. Balance: Able to sit forwards from bed with assistance and continue sitting in long sit position with CG A to supervision. IADL???s: Assistance available to patient from family once d/c'ed from rehab. Endurance: Information taken from last recorded vitals in flowsheet. Last value Range last 8 hrs Heart Rate Heart Rate: 72 Heart Rate: [63-72] Blood Pressure BP: 120/61 mmHg BP: (97-120)/(57-61) SpO2 SpO2: 97 % SpO2: [94 %-97 %] Pt on room air. Pt feeling tired and uncomfortable this afternoon and only interested in working on bed level ADL. Pt with blood sugar in 60s. Pain: At rest: moderate Location: R stump With activity: moderate Location: R stump Elevating R LE on pillows Skin: R stump iftikhar wrapped and L stump with gambling floor supervisor on it. Pt with large pannis/abdomen. Informed Consent: The patient agrees to and understands the OT treatment plan and goals. Education: patient have been educated on Role of occupational therapy/rehabilitation, Precautions/Protocol, Recommendations and Discharge planning and verbalizes understanding. Patient status, treatment, and mobility recommendations discussed with nursing. Assessment: Pt has been seen by OT for evaluation. Pt with L BKA, and now s/p R BKA. L prothesis isn't fitting properly 2' swelling, and not locking. Pt issued gambling floor supervisor earlier today to wear to help shape stump onL; in hopes of improving fit of prothesis. Evaluation thus limited to bed level this afternoon as a r esult. Pt presents with impaired ability to perform daily activities and functional mobility secondary to the fact he is a B BKA now, and with only one prosthesis, decreased balance, strength, endurance, activity tolerance, UE tremors and body habitus. Pt would benefit from ongoing OT services to maximize functional independence while hospitalized. Recommendations: Equipment needs at discharge: reports has FWW, wheelchair, cane, transfer bench to use in walk in shower,. ? commode or bars for toilet needed. Discharge Recommendations: Patient will require / supervision and assistance. Patient would benefit and tolerate continued daily intensive therapy interventions to maximize functional independence. Goals: To be achieved by 06/29 1. Patient will be able to sit eob independently and complete seated sponge bath after set-up. 2. Patient will be able to don/doff a pair of shorts/pants seated eob and weight shifting side to side to hike them to/from waist with minimal assistance. 3. Patient will be able to don gambling floor supervisor/ sleeve on L LE independently and appropriately incorporate breathing with task. 4. Patient to perform sit-stand transfers with minimal assistance of 2 to a FWW from bed or commode (wearing prothesis on L). 5. Patient will be able to stand pivot to/from bed-commode with min A of 2 using FWW (wearing prothesis on L). Plan: Pt to be seen 3-5 per week for therapy including Transfers, Adaptive equipment training, ADL, Exercise, Safety, Precautions/Protocol, Functional Mobility, Activity pacing/Energy conservation, Balance, Recommendations and Discharge planning. Total time spent with patient: 40 minutes Total timed interventions: 0 minutes Pager: [phone] STEPHANIE BORREGO OT 06/22/2011 Occupational Therapy Rehabilitation Department Agustin Baker MD - 06/22/2011 2:29 PM EST Regional Anesthesia Progress Note Date of Encounter: 06/22/2011 Provider: AGUSTIN BROWN MD, MD Attending: MD Uriah ID: Patient is POD# 2 s/p R BKA for which the patient received right Sciatic/Saphenous nerve block for post-operative pain control. Subjective: Today the patient has reasonable pain control although the block wore off at around 11 am. Pt states that oral meds controlling pain but needs to take them soon as pain is returning. Objective: VSS Assessment: Peripheral nerve block for post-operative pain control, currently with good pain control. Block appears to have resolved. Plan: ?? Will sign off, patient was instructed to contact Regional Anesthesia Team ([phone]) for any unresolved sensory or motor deficits. Please contact Regional Anesthesia Team with any questions or concerns AGUSTIN BROWN MD, MD [phone] Shira Bertrand LD - 06/22/2011 1:49 PM EST Nutrition Services-Initial Assessment S: At first they were telling me to watch the sugar, now they are telling me to watch the carbs. O: Dx:Patient Active Problem List Diagnoses Code ??? Amputee, below knee V49.75M ??? 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ifestations 250.40D ??? End stage renal disease 585.6 ??? Diabetes mellitus with neuropathy 250.60DQ ??? Charcot's arthropathy, diabetic, R 250.60HA ??? Wound 959.9BN ??? Tremor, essential 333.1W ??? Open wound of right ankle 891.0FN ??? S/P BKA (below knee amputation) - right lower extremity V49.75D Diet:60/60/75 plus 2gm K+ diet Appetite:excellent Labs include:Lab Results Component Value Date Sodium 133* 06/22/2011 Potassium 6.4* 06/22/2011 Chloride 103 06/22/2011 CO2 21* 06/22/2011 BUN 36* 06/22/2011 Creatinine 1.88* 06/22/2011 Glucose Lvl 217* 06/22/2011 A1c: 11/11;7.5% Wt Readings from Last 3 Encounters: 06/04/11 142.429 kg (314 lb) 03/31/11 140.615 kg (310 lb) 03/22/11 140.161 kg (309 lb) Meds include:multivitamin, Tums prn, dilaudid, folic acid, moxifloxacin, tacrolimus, senna, vanco, insluin A: Pt seen for diet order and to assess po intake. He is eating 100% at meals and likely able to meet his nutrition needs orally. Education provided for low potassium diet. Provided renal friendly shopping list as well as a low potassium food list. Pt and pt mother reports non compliance with diabeticdiet at home, further supported by diabetes related complications and BKA. Also discussed carb containing foods and importance of consistent carbs at meals and snacks. Note most recent A1c of 7.5% which is improved from previous result of 8.5%. P: 1. Diet as ordered 2. Encourage intake. 3. Suggest change multivitamin to nephrocap (renal formulated multivitamin without potassium). 4. Will honor pt food preferences as able this admit. 5. Will follow weekly unless consulted sooner. Jacob Rae RN - 06/22/2011 10:20 AM EST S: I had this other amputation done twelve yrs ago. O: Chart reviewed and met with pt who had R BKA yesterday by Dr Gamino. 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 Pt went out- pt for PT after his last BKA but that was twelve yrs ago. Pt has a prosthesis for his L LE. I discussed in-pt rehab with pt and he agrees this would be beneficial. Pt requests referrals be made to [facility], [place] and [facility]. I will ask the SNF RS to make referrals. Pt should be ready on pending medical status and bed availability. Pt will need a BLS amb and has Medicare only. I will ask IAM Nelson to see about applying for Medicaid. A: Progressing toward d/c to rehab for con't PT/OT until indep with ADLs and can return home. P: Will follow. Joyce Allen, PT - 06/22/2011 9:26 AM EST Physical Therapy Evaluation Patient profile: Pt. is a 56 y.o. with h/x of L BKA. male admitted on 06/21/2011 by Narayan Snowden Jr., MD for RBKA secondary to Charcot foot, nonhealing ulcer. . PMH: Past Surgical History Procedure Date ??? Created [...] DONOR RENAL VENOUS ANAS. Procedure Date: 02/29/2008 Social History: Patient lives with his mother in [facility] [place], Stairs: 0 Baseline Mobility: independent with L LE prosthesis, had stopped using a cane Equipment at home: 2 walkers, WC, cane, LLE prosthesis Precautions/Special Considerations: L BKA, new R BKA, LUE fistula, glasses Subjective: ???I can't lock the leg. It's because my leg is swollen?? Objective: Pt seen for evaluation today. Contacted [place] re: gambling floor supervisor for LLE Pain: mild, p.o meds, good pain control Vital Signs: Sp02: 98 on 2L, 97 %on RA, HR: 70 IS: 2500 with good effort, able to cough and clear secretions Mental Status: alert, oriented to person, place, and time, jokes around a lot Musculoskeletal: ROM: WFL UEs Strength: WFL BUEs, pulled to sit Sensation: WFL UEs Bed Mobility: Supine to Sit: pulled to sit with HOB raised Sit to Supine: NT Transfers: Sit to Stand: mod asst of 2 with bed height raised, gait belt and FWW Stand to Sit: with min asst of 2, prosthesis wouldn't lock Bed <>Chair: deferred, pt agreed to sit EOB supervised by family, sat up to play bingo Gait: NT Balance: Sitting: good at EOB Standing: fair in standing with FWW and asst of 2 Informed Consent: The patient agrees to and understands the PT treatment plan and goals. Education: family and patient have been educated on Bed mobility, Transfers, Exercise, Positioning, Safety , Role of therapy and Discharge planning and verbalize understanding. Patient status, treatment, and mobility recommendations discussed with nursing. Assessment: Pt tolerated today???s evaluation with good pain control. Able to stand a couple of times. Deferred pivoting due to inability to lock LLE prosthesis making it not safe to pivot. Pt is motivated, understands importance of achieving full hip/knee extension. LLE has edema, gambling floor supervisor delivered to help. Expect he will progress daily. The pt would benefit from skilled therapy services to maximize functional independence while in the hospital and to address limitations as noted above. CRC is involved in discharge planning. Pt's mother and sister are very supportive. Goals: To be achieved by Jun 25, 2011 1. Pt. to demonstrate knowledge of precautions and safety concerns during functional activities. 2. Pt. to demonstrate understanding of appropriate exercises 3. Pt. to perform bed mobility with trapeze 4. Pt. to perform transfers with min assist of 2 utilizing a rolling walker and LLE prosthesis 5. Pt. to propel WC independently x 150 ft 6. Family to demonstrate understanding of therapeutic interventions to support the care of the patient. Plan: Pt to be seen 4-5 times per week for therapy including Bed mobility, Transfers, Exercise, Positioning, Safety , Role of therapy, Balance, Discharge planning and WC mobility. Patient agrees with plan asstated above. Equipment needs: Cane, Rolling walker, Raised toilet seat with arms, Wheelchair and shrinkers, LLE prosthesis, pt interested in [place] when able to progress with RLE prosthesis Discharge Recommendations: Patient will require 24/7 supervision and assistance. Patient would benefit and tolerate continued daily intensive therapy interventions to maximize functional independence. Occupational Therapy consult Total time spent with patient: 48 minutes Total timed interventions:0 minutes JOYCE CHERY, PT 06/22/2011 Pager:[phone] Physical Therapy Rehabilitation Department Miles Mccabe MD - 06/22/2011 7:26 AM EST ORTHOPAEDIC PROGRESS NOTE SURGERY/ISSUE: R BKA Patient Active Problem List Diagnoses Code ??? Amputee, below knee V49.75M ??? 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ifestations 250.40D ??? End stage renal disease 585.6 ??? Diabetes mellitus with neuropathy 250.60DQ ??? Charcot's arthropathy, diabetic, R 250.60HA ??? Wound 959.9BN ??? Tremor, essential 333.1W ??? Open wound of right ankle 891.0FN ??? S/P BKA (below knee amputation) - right lower extremity V49.75D No past medical history on file. Interval History: Reports some tolerable pain. Pain much better than previous surgery. No major issues. Denies CP/SOB/N/V. Temp: [36.2 ??C (97.2 ??F)-36.8 ??C (98.2 ??F)] Heart Rate: [57-71] Resp: [10-19] BP: (93-136)/(52-89) SpO2: [96 %-100 %] I/O last 3 completed shifts: In: 1810 [I.V.:1810] Out: 1600 [Urine:1500; Blood:100] PE: NAD RRR per palpation RLE Dressing C/D/I Lab Results Component Value Date WBC 11.9* 06/22/2011 RBC 3.95* 06/22/2011 HGB 12.1* 06/22/2011 HCT 38.2* 06/22/2011 PLATELET 180 06/22/2011 NA 133* 06/22/2011 K 6.4* 06/22/2011 CO2 21* 06/22/2011 BUN 36* 06/22/2011 CREATININE 1.88* 06/22/2011 A/P: Patient appears stable this AM. Creatinine slightly up from 1.67 to 1.87 - will continue to monitor daily. Plan on dressing change tomorrow. ?? Activity: NWB RLE ?? Pain Control: transition to PO ?? Antibiotics: Moxifloxacin + 24 hr aiden-op vanco ?? Anticoagulation: ASA BID ?? Dressing/Spints: Change daily starting POD#2 ?? Dispo: Home vs rehab per PT Andria Franco RN - 06/21/2011 8:01 PM EST [id number] Patient alert and oriented times four. Lung sounds diminished bilaterally with moderate cough with no production. IS teaching completed with return demonstration. Hypoactive bowel sounds in all four quadrants, states he is passing flatus/burping. Last bowel movement per patient was yesterday. Pain well controlled with Morphine LOAD OUT WORKER (settings checked) with LR at 100 cc/hr. IV to right arm patent. Per RN report, patient was straight cathed in PACU. Patient bladder scanned here at 1910 for 64 cc. Will continue to monitor output. No dixno, patient uses urinal. Dressing to right leg is aced cleaned dry intact. Only states minor throbbing to inside above knee. Blood sugar at HS 222, covered per SEP. Masimo on. Call light within reach. Nicola Royal MD - 06/21/2011 5:42 PM EST Orthopaedic Surgery Post-Operative Progress Note Surgery: Right sided BKA Patient Active Problem List Diagnoses Code ??? Amputee, below knee V49.75M ??? 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ifestations 250.40D ??? End stage renal disease 585.6 ??? Diabetes mellitus with neuropathy 250.60DQ ??? Charcot's arthropathy, diabetic, R 250.60HA ??? Wound 959.9BN ??? Tremor, essential 333.1W ??? Open wound of right ankle 891.0FN Patient seen: 06/21 @1700 Subjective/Events: Patient denies chest pain, shortness of breath, headache, abdominal pain, nausea,vomiting. Pain well-controlled. Objective: Vitals: Temp: [36.2 ??C (97.2 ??F)-36.6 ??C (97.9 ??F)] Heart Rate: [58-71] Resp: [16-18] BP: (109-136)/(53-89) SpO2: [96 %-100 %] I/O this shift: In: 635 [I.V.:635] Out: 750 [Urine:650; Blood:100] Exam: General: NAD, awake/alert, responds to questions Resp: Breathing comfortably Abd: Soft, nontender, nondistended. RLE: dressing intact with iftikhar wrap over right stump, patient able to flex and extend knee, sensationintact above dressing No results found for this basename: WBC:3,HGB:3,HCT:3,PLATELET:3,NA:3,K:3,CL:3,CO2:3,BUN:3,CREATININE:3 in the last 72 hours Radiology: No images A/P: 56 y.o. year old male POD#0 s/p right sided BKA. Vitals stable, uop adequate. - continue all post-operative care - No changes to care currently, patient doing well and in good spirits. Ashley Bell RN - 06/21/2011 5:27 PM EST Pt arrives to the floor from PACU via bed. Pt alert and oriented x 3. Heart rate regular. Lungs coarse bilaterally. Pt's pulses palpable in upper extremities bilaterally. Pt denies SOB and chest pain. Pt is continent; will bladder scan pt if no void in 3 hours. Hypoactive bowel sounds. Pt denies n/v. Pt has IV acces in R upper extremity. Pt has R BKA with IFTIKHAR wrap dressing clean, dry and intact. Pt rates his pain 2/-, which he states is acceptable at this time. Pt educated on the use of the call villarreal and incentive spirometer. Will continue to monitor. Juju Bhandari RN - 06/21/2011 3:[address] Mccabe aware of bladder scan. Will write straight cath orders. 1537 straight cath'd for 650cc 1550 elementary classroom teacher initiated. Patient able to verbalize and demonstrate [id number] patient hr in 30's while dry heaving. Spontaneously resolved. Patient states nausea has resolved after zofran given. No further bradycardia. 1606 family at bedside. Patient states that he is feeling pretty good . Using elementary classroom teacher with good results. Patients glasses and teeth given to patient Rayo Dickens, RN - 06/21/2011 11:59 AM EST Entered in error 06/21/11 1128 Vital Signs Temp 36.6 ??C (97.9 ??F) Temp src Temporal Pulse 64 Heart Rate Source Monitor BP 120/69 mmHg Resp 16 SpO2 100 % documented in this encounter H&P Notes Narayan Gamino Jr., MD - 06/21/2011 12:28 PM EST Patient feels healthy and no change in status since H&P. Plan R BKA for diabetic ulcer. documented in this encounter Miscellaneous Notes Miscellaneous - Provider, Scanning - 06/25/2011 10:22 AM EST Miscellaneous - Provider, Scanning - 06/25/2011 10:22 AM EST Miscellaneous - Provider, Scanning - 06/25/2011 10:22 AM EST Discharge Summary - Nicola Pineda MD - 06/24/2011 10:23 AM EST Department of Orthopaedic Medicine - Discharge Summary Patient Name: Leroy Dailey Patient Age: 56 y.o. Birthdate: 1955 Admit date: 06/21/2011 Discharge date and time: No discharge date for patient encounter. Attending Physician: Narayan Gamino Jr., MD Discharge Diagnoses (Hospital Problems) and Secondary Diagnoses (Chronic Problems): Active Hospital Problems Diagnoses ??? S/P BKA (below knee amputation) - right lower extremity Resolved Hospital Problems Diagnoses Date Resolved Active Non-Hospital Problems Diagnoses ??? Open wound of right ankle ??? Tremor, essential ??? Wound ??? Diabetes mellitus with neuropathy ??? Charcot's arthropathy, diabetic, R ??? Amputee, below knee ??? 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ifestations ??? End stage renal disease Operations: Case Date: 06/21/2011 Surgeon: Surgeon(s) and Role: * NARAYAN GAMINO JR, MD - Primary * MILES MCCABE MD - Resident-Surgeon Jonn Procedure: Right AMPUTATION, BELOW-KNEE History of Presentation:Mr. Harper is a 56-year-old male with longstanding diabetes who has Charcot foot. The patient has developed a nonhealing wound. He was seen in clinic and had failed nonoperative treatment. Discussion was held with the patient in regards to operative versus nonoperative management and he elected to undergo below-knee amputation of the right leg. Hospital Course: Leroy Dailey was admitted for the above diagnosis and surgical intervention. There were no intraoperative complications. Patient began rehab on POD#1 with NWChris AMADOR, remembering to use a walker or crutches at all times for balance and protection. The LOAD OUT WORKER was discontinued on POD#1 and the patient was started on oral pain medications and was comfortable. Drains were removed POD#1. Dixon was removed POD#1 and patient was voiding spontaneously. Wound inspected POD#2 and POD #3 and found to be benign. Patient did have a bowel movement before discharge,was passing flatus and taking PO without difficulty. He also had some nausea on POD #2, but resolved well by the am of POD #3. By POD#3 the patient was medically stable and was cleared for safe discharge by PT to rehab. OF Note:Creatinine improved-2.02 today 06/24/11. Baseline 1.67-1.88. Patient is kidney transplant in 2007 and stable on cell cept and prograff currently, has been on Normal Saline while in house and likey has contributed to his rising Cl and slightly decreased bicarbonate. Important Studies and Lab Data: Labs: Lab Results Component Value Date WBC 15.4* 06/24/2011 HGB 11.4* 06/24/2011 HCT 35.7* 06/24/2011 MCV 95.5* 06/24/2011 No current labs Discharge Conditions/Prognosis:Stable, awake, and alert. Mobilizing with walker/crutches(wheelchair prn), pain controlled on oral medications. Patient Vitals in the past 8 hrs: BP Temp Temp src Pulse Resp SpO2 06/24/11 1039 112/61 mmHg 37 ??C (98.6 ??F) Oral 67 18 95 % 06/24/11 0541 114/54 mmHg 36.8 ??C (98.2 ??F) Oral 68 19 96 % Discharge to: rehab Discharge Medications: Current Discharge Medication List New Meds Details acetaminophen (TYLENOL) 1,000 mg Take 1,000 mg by mouth every 8 hours as needed for Pain. Qty: 30 tablet Refills: aspirin 325 mg Take 325 mg by mouth 2 times daily. Qty: 30 tablet Refills: 1 insulin aspart (NOVOLOG) 3-12 Units Inject 3-12 Units subcutaneously 4 times daily. Qty: 20 mL Refills: 3 senna-docusate (PERICOLACE) 1-4 tablets Take 1-4 tablets by mouth 2 times daily as needed for Constipation. Qty: 60 tablet Refills: 1 HYDROmorphone (DILAUDID) 2-6 mg Take 2-6 mg by mouth every 3 hours as needed for Pain. Qty: 90 tablet Refills: 0 Continued medications with revised dosing Details mycophenolate (CELLCEPT) 500 mg Take 500 mg by mouth 2 times daily. Qty: 60 capsule Refills: 1 !! insulin NPH human recomb (humuLIN;novoLIN) 40 Units Inject 40 Units subcutaneously nightly. Qty: 10 mL Refills: 2 !! insulin NPH human recomb (humuLIN;novoLIN) 70 Units Inject 70 Units subcutaneously every morning. Qty: 10 mL Refills: 1 losartan (COZAAR) 50 mg Take 50 mg by mouth daily. Qty: 30 tablet Refills: 11 !! - Potential duplicate medications found. Please discuss with provider. Continued medications, unchanged Details CHOLECALCIFEROL, VITAMIN D3, (VITAMIN D-3 ORAL) 1,000 Int'l Units Take 1,000 Int'l Units by mouth daily. Qty: Refills: Propranolol (INDERAL LA) 160 mg Take 160 mg by mouth 2 times daily. Qty: 180 capsule Refills: PRN folic acid (FOLVITE) 2 mg Take 2 mg by mouth daily. Qty: Refills: simvastatin (ZOCOR) 10 mg Take 10 mg by mouth nightly. Qty: 30 tablet Refills: 11 Prograf 1 mg Take 1 mg by mouth 2 times daily. Qty: 180 capsule Refills: 3 fluticasone (FLONASE) 1 spray 1 spray by Each Nare route as needed. Qty: Refills: montelukast (SINGULAIR) 10 mg Take 10 mg by mouth daily. Qty: Refills: omeprazole (PRILOSEC) 40 mg Take 40 mg by mouth daily. Qty: Refills: Medications STOPPED Cholecalciferol, Vitamin D3, (VITAMIN D) 1,000 unit Tab CINNAMON BARK (CINNAMON ORAL) 1 capsule moxifloxacin (AVELOX) 400 mg glucagon, human recombinant, 1 mg injection insulin regular human (HUMULIN;NOVOLIN) 100 unit/mL vial injection aspirin 81 mg multivitamin (THERAGRAN) 1 tablet Updated Allergies/ADRs: Allergies Allergen Reactions ??? Penicillins Anaphylaxis ??? Clindamycin Hcl Rash ??? Iftikhar Inhibitors Other (See Comments) Cough Orders for Rehab/Ambulatory Providers: 1. Monitor Creatinine /potassium 2 Activity: NWB RLE 3. Anticoagulation: ASA BID 4. Dressing/Spints: Change daily with DSG and apply IFTIKHAR 5. Suture removal in ortho clinic upon follow up. 6. Patient will come with covering doses of anti-rejection medications until rehab facility pharmacyable to supply prescriptions. Instructions Given to Patient at Discharge: Provider Instructions DISCHARGE INSTRUCTIONS: Activity: You are to remain strictly NON-weight bearing on your right leg remembering to use a walker or crutches at all times for balance and protection. Continue to use your wheelchair as necessary. You should keep your stump elevated as much as possible to decrease swelling. If possible, you shouldlie on your stomach for at least 1 hour per day to prevent your hip muscles from shortening. Diet:Diabetic, renal, low potassium diet, but increase your intake of fluids and fiber while you areon narcotic pain meds to prevent constipation. You should also increase your intake of high protein fluids and foods to promote wound healing. Driving: None until you are cleared to do so by your orthopedic surgeon. Ideally you should not drive while you are on narcotic pain meds as they can impede your judgement and affect your reaction time. Call your surgeon if you have any questions or concerns. Anticoagulation:You have been discharged on Aspirin 325 mg twice daily for 2 -4 weeks or until your mobility improves. This medication will help decrease your chance of developing a blood clot. Ask your Orthopedic physician when you should stop taking the Aspirin. Medications: 1. The pain medication you are on can cause constipation so increase your intake of fluids and fiberwhile you are on them. The stool softener that was prescribed, sennakot, can also be taken to facilitate a bowel movement. You can try an nxaz-mfu-zxubred medication, miralax if needed. 2. When you are discharged from rehab if you need a renewal on your narcotic pain medication, you need to give the Orthopedic clinic enough time to process your request. This can take up to three days,so plan accordingly. You will be on the oxydocone for a limited period of time. Your pain control will be transitioned to your PCP most likely prior to your 1st followup appointment. 3. The charts below will let you know of any medication changes that might have occured during your hospital stay. Wound 1. Suture/staple removal - this will likely be done at your first follow-up appointment. 2. DO NOT submerge the incision or stump. Remember to maintain your activity restrictions - STRICT non-weight bearing on your right leg. It might be easier for you to sponge bathe until your follow-up appointment. 3. Change your dressing daily with a dry sterile dressing. You MUST keep your dressing clean and dry. DO NOT apply any lotion or ointment to your incision or stump. 4. Call your orthopaedic surgeon (#[phone]) with any fever, chills, sweats, redness or discharge from the wounds. 5. Daily dressing changes should be done with dry sterile gauze, and then apply an IFTIKHAR wrap. You should keep your incision/stump covered until you are told otherwise by your surgeon. Misc: Remember that ICE and elevation are very important after surgery to help decrease swelling andcontrol pain. Use ICE for 20-30 minutes at a time and keep your leg elevated as much as possible. Call your doctor if: - You have a fever greater than 101.5 degrees F or experience chills - Increased discharge from the incision - Any redness or swelling around the incision - Increased pain or change in the pain that is not controlled by pain medications Future Appointments and Orders Future Appointments: Provider: Department: Dept Phone: Center: 06/28/2011 9:30 AM Margaret Sawyer APRN [facility] [phone] [facility] [phone] [facility] 07/01/2011 2:20 PM Narayan Gamino Jr., MD [facility] [phone] None Future Orders Please Complete By Expires Chlorhexidine scrub: [[id number] Custom] Process Instructions: Scheduling Instructions: Comments: Shower and wash the intended surgical site as instructed the evening and morning prior to surgery. Dispense 1 bottle. Questions: Responses: Provider Contact Information: Primary Care Provider: CANDIDO JENKINS MD [phone] Hospital Attending: Narayan Gamino Jr., MD Department of Orthopaedic Surgery Sports: [phone] For questions regarding this document or issues relating to this hospitalization on the Medical Service, please contact your inpatient physician through the [facility] Pole Classifier . Issues after hours and on weekends will be handled by the Hospitalist staff on-call. Signed: NICOLA PINEDA MD 06/24/2011 Plan of Care - Mer Stokes, RN - 06/23/2011 1:24 AM EST Problem: Pressure Ulcer Risk (Using Varun Scale) (Adult, Obstetric) Goal: Pressure Ulcer Risk (using Varun Scale): Tissue Integrity Outcome: Absent and monitoring Patient has several factors that make him at risk for pressure ulcers. On exam there is no evidence of skin breakdown. Patient had been nauseous and a full bed change was done which ensured that there were few wrinkles under him. Patient is using a trapeze overhead to help himself to change position. 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 Op Note - Miles Mccabe MD - 06/21/2011 3:27 PM EST [facility] Operative Note Patient Name: Leroy Dailey : [id number] MR#: [id number] Case Date: 06/21/2011 Surgeon: Surgeon(s) and Role: * NARAYAN GAMINO JR, MD - Primary * MILES MCCABE MD - Resident-Surgeon Jonn Preoperative diagnosis: Diabetes with neuropathy, chronic ankle infection Postoperative diagnosis: Diabetes with neuropathy, chronic ankle infection Procedure(s): ??AMPUTATION, BELOW-KNEE MAC Estimated Blood Loss: 100mL Disposition: awakened from anesthesia, extubated and taken to the recovery room in a stable condition, having suffered no apparent untoward event. Condition: doing well without problems (Please see the Surgical Encounter Summary for any Implant and Specimen details pertinent to this patient.) HPI/Surgical Indications: CLARIFICATION NEEDED. PLEASE FILL IN THE BLANKS. DATE OF : 1955 ATTENDING: NARAYAN GAMINO M.D. HISTORY OF PRESENT ILLNESS/SURGICAL INDICATIONS: Mr. Harper is a 56-year-old male with longstanding diabetes who has Charcot foot. The patient has developed a nonhealing wound. He was seen in clinic and had failed nonoperative treatment. Discussion was held with the patient in regards to operative versus nonoperative management and he elected to undergo below-knee amputation of the right leg. DESCRIPTION OF THE PROCEDURE: The patient was seen in same-day holding area where his leg was marked. His consent was confirmed. His H&P was updated. He received a block per the anesthesia team and then was taken back to the operating room where he was lying supine on the operating room table. All his bony prominences were well padded. He underwent general anesthesia. His right lower extremity had a tourniquet placed. His right leg was prepped and draped in the usual sterile fashion. A time-out was performed per [facility] protocol. The team agreed to proceed. An incision was made approximately 14 cm from the joint line along the anterior aspect of the tibia. This curved posteriorly and proximally to the mid portion of the leg and then a long flap was made that was approximately 8 to 9 cm long and these were connected posteriorly. These incisions were taken down to bone anteriorly. It was taken down into the soft tissue and care was made to find all major blood vessels and nerves. Blood vessels were found, and these were tied off. Nerves were injected with lidocaine and pulled and then cut proximally to allow for retraction. Once the tibia had been exposed, the martínez elevator was used to elevate the periosteum and a transverse incision was made across the tibia. A slightly oblique saw cut was made along the fibula as well. Again, the amputation was completed using combination of electrocautery and sharp dissection again tying off all major vessels. Once the leg had been completely cut, it was passed off the field. We found that we needed to debulk our posterior flap to some degree and this was performed. Once this was done, we found that we had an adequate flap and we began to suture this back up using tacking sutures followed by basting sutures. There were some areas we found as we were putting this back we had access skin and this was cut off as to make for a nice match of both the flap and the anterior tibial skin. Basting stitches, simple sutures, and vertical mattresses were used to gita the skin and to complete closure. At the end of the case, the wound appeared healthy with good blood flow and had closed. The wound was dressed with Xeroform, 4x4s, ABDs, Kerlix, and an Iftikhar. The patient was awakened from the operating room and transferred to the hospital bed and then taken to the PACU in stable condition. At the end of the case, all counts were correct. Dr. Gamino was there for the entirety of the procedure. OR Attestation - Narayan Gamino Jr., MD - 06/21/2011 3:12 PM EST Attestation: Case Date: 06/21/2011 I was present and I participated during the entire procedure (does not need to include opening and closing). NARAYAN GAMINO JR, MD 06/21/2011 Brief Op Note - Narayan Gamino Jr., MD - 06/21/2011 3:10 PM EST Brief Operative Note Patient Name: Leroy aDiley : [id number] MR#: [id number] Case Date: 06/21/2011 Surgeon: Surgeon(s) and Role: * NARAYAN GAMINO JR, MD - Primary * MILES MCCABE MD - Resident-Surgeon Jonn Preoperative diagnosis: Diabetes with neuropathy, chronic ankle infection Postoperative diagnosis: Diabetes with neuropathy, chronic ankle infection Procedure(s): ??AMPUTATION, BELOW-KNEE Anesthesia: MAC Estimated Blood Loss: 100cc Fluids 500cc Drains: none Disposition: awakened from anesthesia, extubated and taken to the recovery room in a stable condition, having suffered no apparent untoward event. Condition: doing well without problems Continue antibiotics for 24 hrs. Dressing change in 2 days. Likely home bed to wheelchair with L legprosthesis for transfer. Miscellaneous - Provider, Scanning - 06/21/2011 9:35 AM EST Miscellaneous - Provider, Scanning - 06/21/2011 9:35 AM EST documented in this encounter Plan of Treatment Upcoming Encounters Date Type Specialty Care Team Description 05/26/2022 Office Visit Otolaryngology Ricardo Panda PA [facility] [address] [place] [address] (Wo gregg) 06/02/2022 Infusion Hematology and Oncology 06/16/2022 Infusion Hematology and Oncology 06/21/2022 Office Visit Neurology Tyler Rojas MD [facility] [address] [place], [place] [phone] (Wo rk) 06/30/2022 Infusion Hematology and Oncology 07/14/2022 Infusion Hematology and Oncology 07/28/2022 Infusion Hematology and Oncology 08/11/2022 Infusion Hematology and Oncology 11/04/2022 Office Visit Rheumatology Dante Freedman PA [facility] [address] [place] [place] [address] (Wo rk) documented as of this encounter Procedures Procedure Name Priority Date/Time Associated Comments Diagnosis POCT GLUCOSE Routine 06/24/2011 11:55 Results for this AM EST procedure are i n the results section. POCT GLUCOSE Routine 06/24/2011 6:49 AM Results f or this EST procedure are i n the results section. SCAN, PERIPHERAL Routine 06/24/2011 4:18 AM Resul ts for this BLOOD EST procedure are i n the results section. DIFFERENTIAL, Routine 06/24/2011 4:18 AM Results for this AUTOMATED EST procedure are i n the results section. CREATININE Routine 06/24/2011 4:18 AM Results f or this EST procedure are i n the results section. CBC (WITH DIFF) Routine 06/24/2011 4:18 AM Result s for this EST procedure are i n the results section. BUN Routine 06/24/2011 4:18 AM Results f or this EST procedure are i n the results section. ELECTROLYTES PANEL Routine 06/24/2011 4:18 AM Res ults for this EST procedure are i n the results section. BASIC METABOLIC PANEL Routine 06/24/2011 4:18 AM Results for this (NON-FASTING) EST procedure are in the results section. POCT GLUCOSE Routine 06/23/2011 8:20 PM Results f or this EST procedure are i n the results section. POCT GLUCOSE Routine 06/23/2011 6:32 PM Results f or this EST procedure are i n the results section. POCT GLUCOSE Routine 06/23/2011 4:22 PM Results f or this EST procedure are i n the results section. BASIC METABOLIC PANEL Routine 06/23/2011 4:02 PM Results for this (NON-FASTING) EST procedure are in the results section. POCT GLUCOSE Routine 06/23/2011 2:24 PM Results f or this EST procedure are i n the results section. POCT GLUCOSE Routine 06/23/2011 11:21 Results for this AM EST procedure are i n the results section. POCT GLUCOSE Routine 06/23/2011 6:37 AM Results f or this EST procedure are i n the results section. DIFFERENTIAL, Routine 06/23/2011 4:39 AM Results for this AUTOMATED EST procedure are i n the results section. CREATININE Routine 06/23/2011 4:39 AM Results f or this EST procedure are i n the results section. CBC (WITH DIFF) Routine 06/23/2011 4:39 AM Result s for this EST procedure are i n the results section. BUN Routine 06/23/2011 4:39 AM Results f or this EST procedure are i n the results section. ELECTROLYTES PANEL Routine 06/23/2011 4:39 AM Res ults for this EST procedure are i n the results section. POCT GLUCOSE Routine 06/22/2011 9:41 PM Results f or this EST procedure are i n the results section. POCT GLUCOSE Routine 06/22/2011 4:33 PM Results f or this EST procedure are i n the results section. BASIC METABOLIC PANEL Routine 06/22/2011 3:56 PM Results for this (NON-FASTING) EST procedure are in the results section. POCT GLUCOSE Routine 06/22/2011 11:57 Results for this AM EST procedure are i n the results section. EKG 12-LEAD STAT 06/22/2011 7:43 AM HTN (hypertension) Res ults for this EST procedure are i n the results section. POCT GLUCOSE Routine 06/22/2011 6:35 AM Results f or this EST procedure are i n the results section. BASIC METABOLIC PANEL STAT 06/22/2011 5:06 AM Results for this (NON-FASTING) EST procedure are in the results section. DIFFERENTIAL, Routine 06/22/2011 3:52 AM Results for this AUTOMATED EST procedure are i n the results section. CBC (WITH DIFF) Routine 06/22/2011 3:52 AM Result s for this EST procedure are i n the results section. BASIC METABOLIC PANEL Routine 06/22/2011 3:52 AM Results for this (NON-FASTING) EST procedure are in the results section. POCT GLUCOSE Routine 06/21/2011 8:33 PM Results f or this EST procedure are i n the results section. POCT GLUCOSE Routine 06/21/2011 4:42 PM Results f or this EST procedure are i n the results section. POCT GLUCOSE Routine 06/21/2011 3:19 PM Results f or this EST procedure are i n the results section. SURGICAL PATHOLOGY Routine 06/21/2011 2:40 PM Res ults for this REPORT EST procedure are i n the results section. SPECIMEN TO PATHOLOGY Routine 06/21/2011 1:47 PM Results for this EST procedure are i n the results section. @AMPUTATION, 06/21/2011 12:56 Diabetes mellitus BELOW-KNEE (WRVU PM EST with neuropathy 15.37) Open wound of right ankle POCT GLUCOSE Routine 06/21/2011 10:19 Results for this AM EST procedure are i n the results section. documented in this encounter Results POCT GLUCOSE LAB USE ONLY (06/24/2011 11:55 AM EST) athologist Signature POC Glucose 170 60 - 199 CERNER mg/dL MILLENNIUM Comment: Supplemental ranges: <110 mg/dL before meals <200 mg/dL all other times of the day Specimen Anatomical Collection Method Collection Time Receive d Time (Source) Location / / Volume Laterality Blood specimen 06/24/2011 11:55 1 (specimen) AM EST 11:55 AM EST Narayan Gamino Jr., MD POINT OF CARE TEST ORDERABLE S Performing Organization Address City/[facility]/ZIP Code Phon e Number [address] CERNER MILLENNIUM POCT GLUCOSE LAB USE ONLY (06/24/2011 6:49 AM EST) athologist Signature POC Glucose 166 60 - 199 CERNER mg/dL MILLENNIUM Comment: Supplemental ranges: <110 mg/dL before meals <200 mg/dL all other times of the day Specimen Anatomical Collection Method Collection Time Receive d Time (Source) Location / / Volume Laterality Blood specimen 06/24/2011 6:49 AM 011 6:49 (specimen) EST AM EST Narayan Gamino Jr., MD POINT OF CARE TEST ORDERABLE S Performing Organization Address City/State/ZIP Code Phon e Number [address] CERNER MILLENNIUM SCAN, PERIPHERAL BLOOD (06/24/2011 4:18 AM EST) [facility] gist Method Time Signature Plat Estimate Normal CERNER MILLENNIUM RBC Morphology Abnormal CERNER MILLENNIUM Macrocytes 1-5 /HPF CERNER MILLENNIUM Ovalocytes 1-5 /HPF CERNER MILLENNIUM Platelet Clumps Present CERNER MILLENNIUM Specimen Anatomical Collection Method Collection Time Receive d Time (Source) Location / / Volume Laterality Blood specimen 06/24/2011 4:18 AM 011 4:23 (specimen) EST AM EST Narayan Gamino Jr., MD HEMATOLOGY ORDERABLES Performing Organization Address City/State/[place] [address] CERNER MILLENNIUM (ABNORMAL) DIFFERENTIAL, AUTOMATED (06/24/2011 4:18 AM EST) [facility] gist Method Time Signature Neutrophils % 73.8 (H) 34.0 - CERNER 71.0 % MILLENNIUM Neutr Abs (ANC) 11.38 (H) 1.50 - CERNER 6.30 MILLENNIUM x10(3)/mc L Lymphocytes % 14.2 (L) 19.0 - CERNER 53.0 % MILLENNIUM Lymphocytes Abs 2.2 1.0 - 3.6 CERNER x10(3)/mc MILLENNIUM L Monocytes % 11.0 4.0 - CERNER 13.0 % MILLENNIUM Monocyte Abs 1.7 (H) 0.2 - 1.0 CERNER x10(3)/mc MILLENNIUM L Eosinophils % 0.5 0.0 - 7.0 CERNER % MILLENNIUM Eosinophils [...] performed. Courtney Gran Abs 0.04 0.00 - 0.05 x10(3)/mcL CER NER MILLENNIUM Specimen Anatomical Collection Method Collection Time Receive d Time (Source) Location / / Volume Laterality Blood specimen 06/24/2011 4:18 AM 011 4:23 (specimen) EST AM EST Narayan Gamino Jr., MD HEMATOLOGY ORDERABLES Performing Organization Address City/State/[place] [address] CERNER MILLENNIUM (ABNORMAL) BASIC METABOLIC PANEL (NON-FASTING) (06/24/2011 4:18 AM EST) P athologist Signature Glucose Lvl 164 60 - 199 CERNER mg/dL MILLENNIUM Comment: Diabetes: >=200 mg/dL plus symp toms BUN 42 (H) 10 - 20 mg/dL CERNER MILLENNIU M Creatinine 2.02 (H) 0.80 - 1.50 mg/dL CERNER MILL ENNIUM Sodium 139 135 - 145 mmol/L CERNER OMKAR NIUM Potassium 4.6 3.5 - 5.0 mmol/L CERNER OMKAR NIUM Comment: Please note: ??Patients with WBC >100,00 0 may have falsely elevated Potassium levels. ??For accurate Potassium quantif ication in these patients send serum separator tube (gold top) for subsequent determinations. ??Contact the Clinical Chemistry Laboratory if there are any qu estions. Chloride 110 (H) 98 - 107 mmol/L CERNER MILLENN IUM CO2 19 (L) 22 - 31 mmol/L CERNER MILLENNI UM Anion Gap 10 5 - 15 mmol/L CERNER MILLENNIU M Calcium 9.0 8.5 - 10.5 mg/dL CERNER OMKAR NIUM Estimated GFR 34 (L) >=60 CERNER MILLENNIU M Comment: The National Kidney Disease Education Pr ogram (NKDEP) has recommended all laboratories report estimated GFR (eGFR) along with plasma creatinine measurements to assist you with recognit ion of early kidney disease. Caveats: ??Plasma creatinine should be a t steady-state (unchanged within the past week). For patient s multiply eGFR by 1.2.MDRD equation has not been validated for pediatric pat ients and is only valid for patients with age >= 18 years. At present, NKDEP does NOT recommend usi [...] kidney disease. References: http://nkdep.nih.gov/resources/NKDEP_Sug gestn4Labs_0606_508.pdf http://www.kidney.org/professionals/kls/ pdf/faq_gfr.pdf Specimen Anatomical Collection Method Collection Time Receive d Time (Source) Location / / Volume Laterality Blood specimen 06/24/2011 4:18 AM 011 4:25 (specimen) EST AM EST Narayan Gamino Jr., MD CHEMISTRY ORDERABLES Performing Organization Address City/State/ZIP Code Phon e Number [place] [id number] CERNER MILLENNIUM (ABNORMAL) Creatinine, serum (06/24/2011 4:18 AM EST) [facility] Time Signature Creatinine 2.02 (H) 0.80 - CERNER 1.50 mg/dL MILLENNIUM Estimated GFR 34 (L) >=60 CERNER MILLENNIUM Comment: The National Kidney Disease Education Pr ogram (NKDEP) has recommended all laboratories report estimated GFR (eGFR) along with plasma creatinine measurements to assist you with recognit ion of early kidney disease. Caveats: ??Plasma creatinine should be a t steady-state (unchanged within the past week). For patient s multiply eGFR by 1.2.MDRD equation has not been validated for pediatric pat ients and is only valid for patients with age >= 18 years. At present, NKDEP does NOT recommend usi [...] kidney disease. References: http://nkdep.nih.gov/resources/NKDEP_Sug gestn4Labs_0606_508.pdf http://www.kidney.org/professionals/kls/ pdf/faq_gfr.pdf Specimen Anatomical Collection Method Collection Time Receive d Time (Source) Location / / Volume Laterality Blood specimen 06/24/2011 4:18 AM 011 4:23 (specimen) EST AM EST Narayan Gamino Jr., MD CHEMISTRY ORDERABLES Performing Organization Address [facility] e Number [address] CERNER MILLENNIUM (ABNORMAL) BUN (06/24/2011 4:18 AM EST) P athologist Signature BUN 42 (H) 10 - 20 CERNER mg/dL MILLENNIUM Specimen Anatomical Collection Method Collection Time Receive d Time (Source) Location / / Volume Laterality Blood specimen 06/24/2011 4:18 AM 011 4:23 (specimen) EST AM EST Narayan Gamino Jr., MD CHEMISTRY ORDERABLES Performing Organization Address [facility] [place] [address] CERNER MILLENNIUM (ABNORMAL) Electrolytes panel (06/24/2011 4:18 AM EST) P athologist Signature Sodium 139 135 - 145 CERNER mmol/L MILLENNIUM Potassium 4.6 3.5 - 5.0 CERNER mmol/L MILLENNIUM Comment: Please note: ??Patients with WBC >100,00 0 may have falsely elevated Potassium levels. ??For accurate Potassium quantif ication in these patients send serum separator tube (gold top) for subsequent determinations. ??Contact the Clinical Chemistry Laboratory if there are any qu estions. Chloride 110 (H) 98 - 107 mmol/L CERNER MILLENN IUM CO2 19 (L) 22 - 31 mmol/L CERNER MILLENNI UM Anion Gap 10 5 - 15 mmol/L CERNER MILLENNIU M Specimen Anatomical Collection Method Collection Time Receive d Time (Source) Location / / Volume Laterality Blood specimen 06/24/2011 4:18 AM 011 4:23 (specimen) EST AM EST Narayan Gamino Jr., MD CHEMISTRY ORDERABLES Performing Organization Address City/[facility] Phon e Number [address] CERNER MILLENNIUM (ABNORMAL) CBC (with Diff) (06/24/2011 4:18 AM EST) P athologist Signature WBC 15.4 (H) 4.0 - 10.0 CERNER x10(3)/mcL MILLENNIUM RBC 3.74 (L) 4.63 - CERNER 6.08 MILLENNIUM x10(6)/mcL Hemoglobin 11.4 (L) 13.7 - CERNER 17.5 gm/dL MILLENNIUM Hematocrit 35.7 (L) 40.0 - CERNER 51.0 % MILLENNIUM MCV 95.5 (H) 79.0 - CERNER 92.0 fL MILLENNIUM MCH 30.5 25.6 - CERNER 32.2 pg MILLENNIUM MCHC 31.9 (L) 32.0 - CERNER 36.5 gm/dL MILLENNIUM Platelets 168 145 - 370 CERNER x10(3)/mcL MILLENNIUM RDWSD 48.3 (H) 35.0 - CERNER 46.0 fL MILLENNIUM RDWCV 13.9 10.9 - CERNER 14.4 % MILLENNIUM MPV 8.4 (L) 9.0 - 12.0 CERNER fL MILLENNIUM Specimen Anatomical Collection Method Collection Time Receive d Time (Source) Location / / Volume Laterality Blood specimen 06/24/2011 4:18 AM 011 4:23 (specimen) EST AM EST Narayan Gamino Jr., MD HEMATOLOGY ORDERABLES Performing Organization Address City/[facility] Phon e Number [address] [facility] POCT GLUCOSE LAB USE ONLY (06/23/2011 8:20 PM EST) athologist Signature POC Glucose 215 (H) 60 - 199 CERNER mg/dL [facility] Comment: Supplemental ranges: <110 mg/dL before meals <200 mg/dL all other times of the day Specimen Anatomical Collection Method Collection Time Receive d Time (Source) Location / / Volume Laterality Blood specimen 06/23/2011 8:20 PM 011 8:20 (specimen) EST PM EST Narayan Gamino Jr., MD POINT OF CARE TEST ORDERABLE S Performing Organization Address City/[facility]/ZIP Code Phon e Number [address] [facility] (ABNORMAL) POCT GLUCOSE LAB USE ONLY (06/23/2011 6:32 PM EST) athologist Signature POC Glucose 212 (H) 60 - 199 [facility]ERNER mg/dL [facility] Comment: Supplemental ranges: <110 mg/dL before meals <200 mg/dL all other times of the day Specimen Anatomical Collection Method Collection Time Receive d Time (Source) Location / / Volume Laterality Blood specimen 06/23/2011 6:32 PM 011 6:32 (specimen) EST PM EST Narayan Gamino Jr., MD POINT OF CARE TEST ORDERABLE S Performing Organization Address City/[facility]/ZIP Code Phon e Number [address] [facility] POCT GLUCOSE LAB USE ONLY (06/23/2011 4:22 PM EST) athologist Signature POC Glucose 291 (H) 60 - 199 CERNER mg/dL [facility] Comment: Supplemental ranges: <110 mg/dL before meals <200 mg/dL all other times of the day Specimen Anatomical Collection Method Collection Time Receive d Time (Source) Location / / Volume Laterality Blood specimen 06/23/2011 4:22 PM 011 4:22 (specimen) EST PM EST Narayan Gamino Jr., MD POINT OF CARE TEST ORDERABLE S Performing Organization Address City/State/ZIP Code [place] [address] CERNER MILLENNIUM (ABNORMAL) Basic Metabolic Panel (non-fasting) (06/23/2011 4:02 PM EST) P athologist Signature Glucose Lvl 268 (H) 60 - 199 CERNER mg/dL MILLENNIUM Comment: result rechecked-NM Diabetes: >=200 mg/dL plus symptoms BUN 41 (H) 10 - 20 mg/dL CERNER MILLENNIU M Creatinine 2.05 (H) 0.80 - 1.50 mg/dL CERNER MILL ENNIUM Sodium 134 (L) 135 - 145 mmol/L CERNER OMKAR NIUM Potassium 4.8 3.5 - 5.0 mmol/L CERNER OMKAR NIUM Comment: Please note: ??Patients with WBC >100,00 0 may have falsely elevated Potassium levels. ??For accurate Potassium quantif ication in these patients send serum separator tube (gold top) for subsequent determinations. ??Contact the Clinical Chemistry Laboratory if there are any qu estions. Chloride 104 98 - 107 mmol/L CERNER MILLENN IUM CO2 20 (L) 22 - 31 mmol/L CERNER MILLENNI UM Anion Gap 10 5 - 15 mmol/L CERNER MILLENNIU M Calcium 9.0 8.5 - 10.5 mg/dL CERNER OMKAR NIUM Estimated GFR 34 (L) >=60 CERNER MILLENNIU M Comment: The National Kidney Disease Education Pr ogram (NKDEP) has recommended all laboratories report estimated GFR (eGFR) along with plasma creatinine measurements to assist you with recognit ion of early kidney disease. Caveats: ??Plasma creatinine should be a t steady-state (unchanged within the past week). For patient s multiply eGFR by 1.2.MDRD equation has not been validated for pediatric pat ients and is only valid for patients with age >= 18 years. At present, NKDEP does NOT recommend usi [...] kidney disease. References: http://nkdep.nih.gov/resources/NKDEP_Sug gestn4Labs_0606_508.pdf http://www.kidney.org/professionals/kls/ pdf/faq_gfr.pdf Specimen Anatomical Collection Method Collection Time Receive d Time (Source) Location / / Volume Laterality Blood specimen 06/23/2011 4:02 PM 011 4:10 (specimen) EST PM EST Narayan Gamino Jr., MD CHEMISTRY ORDERABLES Performing Organization Address [facility] Phon e Number [address] CERNER MILLENNIUM (ABNORMAL) POCT GLUCOSE LAB USE ONLY (06/23/2011 2:24 PM EST) P athologist Signature POC Glucose 274 (H) 60 - 199 CERNER mg/dL MILLENNIUM Comment: Supplemental ranges: <110 mg/dL before meals <200 mg/dL all other times of the day Specimen Anatomical Collection Method Collection Time Receive d Time (Source) Location / / Volume Laterality Blood specimen 06/23/2011 2:24 PM 011 2:24 (specimen) EST PM EST Narayan Gamino Jr., MD POINT OF CARE TEST ORDERABLE S Performing Organization Address [facility] Phon e Number [address] CERNER MILLENNIUM (ABNORMAL) POCT GLUCOSE LAB USE ONLY (06/23/2011 11:21 AM EST) P athologist Signature POC Glucose 273 (H) 60 - 199 CERNER mg/dL MILLENNIUM Comment: Supplemental ranges: <110 mg/dL before meals <200 mg/dL all other times of the day Specimen Anatomical Collection Method Collection Time Receive d Time (Source) Location / / Volume Laterality Blood specimen 06/23/2011 11:21 1 (specimen) AM EST 11:21 AM EST Narayan Gamnio Jr., MD POINT OF CARE TEST ORDERABLE S Performing Organization Address City/State/ZIP Code Phon e Number [address] CERNER MILLENNIUM (ABNORMAL) POCT GLUCOSE LAB USE ONLY (06/23/2011 6:37 AM EST) P athologist Signature POC Glucose 233 (H) 60 - 199 CERNER mg/dL MILLENNIUM Comment: Supplemental ranges: <110 mg/dL before meals <200 mg/dL all other times of the day Specimen Anatomical Collection Method Collection Time Receive d Time (Source) Location / / Volume Laterality Blood specimen 06/23/2011 6:37 AM 011 6:37 (specimen) EST AM EST Narayan Gamino Jr., MD POINT OF CARE TEST ORDERABLE S Performing Organization Address City/State/ZIP Code Phon e Number [address] CERNER MILLENNIUM (ABNORMAL) DIFFERENTIAL, AUTOMATED (06/23/2011 4:39 AM EST) Patholo gist Method Time Signature Neutrophils % 70.8 34.0 - CERNER 71.0 % MILLENNIUM Neutr Abs (ANC) 10.99 (H) 1.50 - CERNER 6.30 MILLENNIUM x10(3)/mc L Lymphocytes % 15.9 (L) 19.0 - CERNER 53.0 % MILLENNIUM Lymphocytes Abs 2.5 1.0 - 3.6 CERNER x10(3)/mc MILLENNIUM L Monocytes % 12.4 4.0 - CERNER 13.0 % MILLENNIUM Monocyte Abs 1.9 (H) 0.2 - 1.0 CERNER x10(3)/mc MILLENNIUM L Eosinophils % 0.4 0.0 - 7.0 CERNER % MILLENNIUM Eosinophils [...] performed. Courtney Gran Abs 0.04 0.00 - 0.05 x10(3)/mcL CER NER MILLENNIUM Specimen Anatomical Collection Method Collection Time Receive d Time (Source) Location / / Volume Laterality Blood specimen 06/23/2011 4:39 AM 011 4:55 (specimen) EST AM EST Narayan Gamino Jr., MD HEMATOLOGY ORDERABLES Performing Organization Address City/[facility]/[place] [address] CERNER MILLENNIUM (ABNORMAL) BUN (06/23/2011 4:39 AM EST) P athologist Signature BUN 44 (H) 10 - 20 CERNER mg/dL MILLENNIUM Specimen Anatomical Collection Method Collection Time Receive d Time (Source) Location / / Volume Laterality Blood specimen 06/23/2011 4:39 AM 011 4:55 (specimen) EST AM EST Narayan Gamino Jr., MD CHEMISTRY ORDERABLES Performing Organization Address City/[facility] [place] [address] CERNER MILLENNIUM (ABNORMAL) Creatinine, serum (06/23/2011 4:39 AM EST) Analysis Performed At Patho logist Time Signature Creatinine 2.32 (H) 0.80 - CERNER 1.50 mg/dL MILLENNIUM Estimated GFR 29 (L) >=60 CERNER MILLENNIUM Comment: The National Kidney Disease Education Pr ogram (NKDEP) has recommended all laboratories report estimated GFR (eGFR) along with plasma creatinine measurements to assist you with recognit ion of early kidney disease. Caveats: ??Plasma creatinine should be a t steady-state (unchanged within the past week). For patient s multiply eGFR by 1.2.MDRD equation has not been validated for pediatric pat ients and is only valid for patients with age >= 18 years. At present, NKDEP does NOT recommend usi [...] kidney disease. References: http://nkdep.nih.gov/resources/NKDEP_Sug gestn4Labs_0606_508.pdf http://www.kidney.org/professionals/kls/ pdf/faq_gfr.pdf Specimen Anatomical Collection Method Collection Time Receive d Time (Source) Location / / Volume Laterality Blood specimen 06/23/2011 4:39 AM 011 4:55 (specimen) EST AM EST Narayan Gamino Jr., MD CHEMISTRY ORDERABLES Performing Organization Address City/State/[place] [address] CERNER MILLENNIUM (ABNORMAL) Electrolytes panel (06/23/2011 4:39 AM EST) P athologist Signature Sodium 137 135 - 145 CERNER mmol/L MILLENNIUM Potassium 4.9 3.5 - 5.0 CERNER mmol/L [...] 31 mmol/L CERNER MILLENNI UM Anion Gap 13 5 - 15 mmol/L CERNER MILLENNIU M Specimen Anatomical Collection Method Collection Time Receive d Time (Source) Location / / Volume Laterality Blood specimen 06/23/2011 4:39 AM 011 4:55 (specimen) EST AM EST Narayan Gamino Jr., MD CHEMISTRY ORDERABLES Performing Organization Address City/[facility]/[place] [address] CERNER MILLENNIUM (ABNORMAL) CBC (with Diff) (06/23/2011 4:39 AM EST) athologist Signature WBC 15.5 (H) 4.0 - 10.0 CERNER x10(3)/mcL MILLENNIUM RBC 3.91 (L) 4.63 - CERNER 6.08 MILLENNIUM x10(6)/mcL Hemoglobin 11.8 (L) 13.7 - CERNER 17.5 gm/dL MILLENNIUM Hematocrit 37.8 (L) 40.0 - CERNER 51.0 % MILLENNIUM MCV 96.7 (H) 79.0 - CERNER 92.0 fL MILLENNIUM MCH 30.2 25.6 - CERNER 32.2 pg MILLENNIUM MCHC 31.2 (L) 32.0 - CERNER 36.5 gm/dL MILLENNIUM Platelets 207 145 - 370 CERNER x10(3)/mcL MILLENNIUM RDWSD 50.0 (H) 35.0 - CERNER 46.0 fL MILLENNIUM RDWCV 14.1 10.9 - CERNER 14.4 % MILLENNIUM MPV 8.7 (L) 9.0 - 12.0 CERNER fL MILLENNIUM Specimen Anatomical Collection Method Collection Time Receive d Time (Source) Location / / Volume Laterality Blood specimen 06/23/2011 4:39 AM 011 4:55 (specimen) EST AM EST Narayan Gamino Jr., MD HEMATOLOGY ORDERABLES Performing Organization Address City/[facility]/[place] [address] [facility] MILL[facility] POCT GLUCOSE LAB USE ONLY (06/22/2011 9:41 PM EST) athologist Signature POC Glucose 131 60 - 199 CERNER mg/dL [facility] Comment: Supplemental ranges: <110 mg/dL before meals <200 mg/dL all other times of the day Specimen Anatomical Collection Method Collection Time Receive d Time (Source) Location / / Volume Laterality Blood specimen 06/22/2011 9:41 PM 011 9:41 (specimen) EST PM EST Narayan Gamino Jr., MD POINT OF CARE TEST ORDERABLE S Performing Organization Address City/[facility]/[place] [address] CERNER MILLENNIUM POCT GLUCOSE LAB USE ONLY (06/22/2011 4:33 PM EST) athologist Signature POC Glucose 68 60 - 199 CERNER mg/dL MILLENNIUM Comment: Supplemental ranges: <110 mg/dL before meals <200 mg/dL all other times of the day Specimen Anatomical Collection Method Collection Time Receive d Time (Source) Location / / Volume Laterality Blood specimen 06/22/2011 4:33 PM 011 4:33 (specimen) EST PM EST Narayan Gamino Jr., MD POINT OF CARE TEST ORDERABLE S Performing Organization Address City/State/[place] [address] CERNER MILLENNIUM (ABNORMAL) Basic Metabolic Panel (non-fasting) (06/22/2011 3:56 PM EST) athologist Signature Glucose Lvl 59 (L) 60 - 199 CERNER mg/dL MILLENNIUM Comment: Diabetes: >=200 mg/dL plus symp toms BUN 38 (H) 10 - 20 mg/dL CERNER MILLENNIU M Creatinine 2.00 (H) 0.80 - 1.50 mg/dL CERNER MILL ENNIUM Sodium 137 135 - 145 mmol/L CERNER OMKAR NIUM Potassium 4.9 3.5 - 5.0 mmol/L CERNER OMKAR NIUM Comment: result rechecked- mtf Please note: ??Patients with WBC >100,00 0 [...] - 15 mmol/L CERNER MILLENNIU M Calcium 9.1 8.5 - 10.5 mg/dL CERDINH OMKAR NIUM Estimated GFR 34 (L) >=60 CERNER MILLENNIU M Comment: The National Kidney Disease Education Pr ogram (NKDEP) has recommended all laboratories report estimated GFR (eGFR) along with plasma creatinine measurements to assist you with recognit ion of early kidney disease. Caveats: ??Plasma creatinine should be a t steady-state (unchanged within the past week). For patient s multiply eGFR by 1.2.MDRD equation has not been validated for pediatric pat ients and is only valid for patients with age >= 18 years. At present, NKDEP does NOT recommend usi [...] kidney disease. References: http://nkdep.nih.gov/resources/NKDEP_Sug gestn4Labs_0606_508.pdf http://www.kidney.org/professionals/kls/ pdf/faq_gfr.pdf Specimen Anatomical Collection Method Collection Time Receive d Time (Source) Location / / Volume Laterality Blood specimen 06/22/2011 3:56 PM 011 4:06 (specimen) EST PM EST Narayan Gamino Jr., MD CHEMISTRY ORDERABLES Performing Organization Address City/State/[place] [address] HOLLI BALLARDIUM POCT GLUCOSE LAB USE ONLY (06/22/2011 11:57 AM EST) athologist Signature POC Glucose 136 60 - 199 CERNER mg/dL [facility] Comment: Supplemental ranges: <110 mg/dL before meals <200 mg/dL all other times of the day Specimen Anatomical Collection Method Collection Time Receive d Time (Source) Location / / Volume Laterality Blood specimen 06/22/2011 11:57 1 (specimen) AM EST 11:57 AM EST Narayan Gamino Jr., MD POINT OF CARE TEST ORDERABLE S Performing Organization Address City/State/[place] [address] [facility] E[facility] 12 Lead (06/22/2011 7:43 AM EST) Component Value Ref Range Test Analysis Performed Pathologis t Method Time At Signature Ventricular rate 54 BPM MUSE SYSTEM Atrial Rate 54 BPM MUSE SYSTEM P-R Interval 190 ms MUSE SYSTEM QRS Duration 108 ms MUSE SYSTEM Q-T Interval 426 ms MUSE SYSTEM QTC Calculated 403 ms MUSE SYSTEM (Bezet) Calculated P [place] 19 degrees MUSE SYSTEM Calculated R [place] -5 degrees MUSE SYSTEM Calculated T [place] 35 degrees MUSE SYSTEM INTERPRETATION Sinus bradycardia MUSE SY STEM Otherwise normal ECG When compared with ECG of 01-MAR-2008 18:25, Vent. rate has decreased BY ??32 BPM Confirmed by MD Diaz Timothy ([id number]) on 06/22/2011 10:00:45 AM Specimen Anatomical Collection Method Collection Time Receive d Time (Source) Location / / Volume Laterality 06/22/2011 7:43 AM 1 EST 10:00 AM EST Narayan Gamino Jr., MD ECG ORDERABLES Performing Organization Address City/State/ZIP Code Phon e Number MUSE SYSTEM (ABNORMAL) POCT GLUCOSE LAB USE ONLY (06/22/2011 6:35 AM EST) athologist Signature POC Glucose 232 (H) 60 - 199 CERNER mg/dL [facility] Comment: Supplemental ranges: <110 mg/dL before meals <200 mg/dL all other times of the day Specimen Anatomical Collection Method Collection Time Receive d Time (Source) Location / / Volume Laterality Blood specimen 06/22/2011 6:35 AM 011 6:35 (specimen) EST AM EST Narayan Gamino Jr., MD POINT OF CARE TEST ORDERABLE S Performing Organization Address City/State/ZIP Code Phon e Number [facility] [place] [address] CERNER MILLENNIUM (ABNORMAL) Basic Metabolic Panel (non-fasting) (06/22/2011 5:06 AM EST) P athologist Signature Glucose Lvl 217 (H) 60 - 199 CERNER mg/dL MILLENNIUM Comment: Diabetes: >=200 mg/dL plus symp toms BUN 36 (H) 10 - 20 mg/dL CERNER MILLENNIU M Creatinine 1.88 (H) 0.80 - 1.50 mg/dL CERNER MILL ENNIUM Sodium 133 (L) 135 - 145 mmol/L CERNER OMKAR NIUM Potassium 6.4 (Critical) 3.5 - 5.0 mmol/L CERNER M ILLENNIUM Comment: Called by: adriana, Read back by: Manuel Fishman and, Date/Time:06/22/11 07:00. Please note: ??Patients with WBC >100,00 0 [...] 10.5 mg/dL CERNER OMKAR NIUM Estimated GFR 37 (L) >=60 CERNER MILLENNIU M Comment: The National Kidney Disease Education Pr ogram (NKDEP) has recommended all laboratories report estimated GFR (eGFR) along with plasma creatinine measurements to assist you with recognit ion of early kidney disease. Caveats: ??Plasma creatinine should be a t steady-state (unchanged within the past week). For patient s multiply eGFR by 1.2.MDRD equation has not been validated for pediatric pat ients and is only valid for patients with age >= 18 years. At present, NKDEP does NOT recommend usi [...] kidney disease. References: http://nkdep.nih.gov/resources/NKDEP_Sug gestn4Labs_0606_508.pdf http://www.kidney.org/professionals/kls/ pdf/faq_gfr.pdf Specimen Anatomical Collection Method Collection Time Receive d Time (Source) Location / / Volume Laterality Blood specimen 06/22/2011 5:06 AM 011 6:29 (specimen) EST AM EST Narayan Gamino Jr., MD CHEMISTRY ORDERABLES Performing Organization Address City/State/[place] [address] CERNER MILLENNIUM (ABNORMAL) DIFFERENTIAL, AUTOMATED (06/22/2011 3:52 AM EST) [facility] gist Method Time Signature Neutrophils % 77.4 (H) 34.0 - CERNER 71.0 % MILLENNIUM Neutr Abs (ANC) 9.21 (H) 1.50 - CERNER 6.30 MILLENNIUM x10(3)/mc L Lymphocytes % 13.2 (L) 19.0 - CERNER 53.0 % MILLENNIUM Lymphocytes Abs 1.6 1.0 - 3.6 CERNER x10(3)/mc MILLENNIUM L Monocytes % 8.8 4.0 - CERNER 13.0 % MILLENNIUM Monocyte Abs 1.1 (H) 0.2 - 1.0 CERNER x10(3)/mc MILLENNIUM L Eosinophils % 0.2 0.0 - 7.0 CERNER % MILLENNIUM Eosinophils Abs 0.0 0.0 - 0.5 CERNER x10(3)/mc MILLENNIUM L [...] Location / / Volume Laterality Blood specimen 06/22/2011 3:52 AM 011 4:04 (specimen) EST AM EST Narayan Gamino Jr., MD HEMATOLOGY ORDERABLES Performing Organization Address City/State/[place] [address] CERNER MILLENNIUM (ABNORMAL) Basic Metabolic Panel (non-fasting) (06/22/2011 3:52 AM EST) P athologist Signature Glucose Lvl 225 (H) 60 - 199 CERNER mg/dL MILLENNIUM Comment: Diabetes: >=200 mg/dL plus symp toms BUN 36 (H) 10 - 20 mg/dL CERNER MILLENNIU M Creatinine 1.87 (H) 0.80 - 1.50 mg/dL CERNER MILL ENNIUM Sodium 134 (L) 135 - 145 mmol/L CERNER OMKAR NIUM Potassium 6.5 (Critical) 3.5 - 5.0 mmol/L CERNER M ILLENNIUM Comment: Called by: adriana, Read back by: Nikolay silva, Date/Time:06/22/11 04:39. Please note: ??Patients with WBC >100,00 0 may have falsely elevated Potassium levels. ??For accurate Potassium quantif ication in these patients send serum separator tube (gold top) for subsequent determinations. ??Contact the Clinical Chemistry Laboratory if there are any qu estions. called by/read back by (full name)/date- time Please note: ??Patients with WBC >100,00 0 may have falsely elevated Potassium levels. ??For accurate Potassium quantif ication in these patients send serum separator tube (gold top) for subsequent determinations. ??Contact the Clinical Chemistry Laboratory if there are any qu estions. Corrected from 6.5 mMol/L [CRIT] on 05/26 04/04 04:39:12 EST by Elena Williamson Chloride 104 98 - 107 mmol/L CERNER MILLENN IUM CO2 25 22 - 31 mmol/L CERNER MILLENNI UM Anion Gap 5 5 - 15 mmol/L CERNER MILLENNIU M Calcium 8.8 8.5 - 10.5 mg/dL CERNER OMKAR NIUM Estimated GFR 37 (L) >=60 CERNER MILLENNIU M Comment: The National Kidney Disease Education Pr ogram (NKDEP) has recommended all laboratories report estimated GFR (eGFR) along with plasma creatinine measurements to assist you with recognit ion of early kidney disease. Caveats: ??Plasma creatinine should be a t steady-state (unchanged within the past week). For patient s multiply eGFR by 1.2.MDRD equation has not been validated for pediatric pat ients and is only valid for patients with age >= 18 years. At present, NKDEP does NOT recommend usi [...] kidney disease. References: http://nkdep.nih.gov/resources/NKDEP_Sug gestn4Labs_0606_508.pdf http://www.kidney.org/professionals/kls/ pdf/faq_gfr.pdf Specimen Anatomical Collection Method Collection Time Receive d Time (Source) Location / / Volume Laterality Blood specimen 06/22/2011 3:52 AM 011 4:04 (specimen) EST AM EST Narayan Gamino Jr., MD CHEMISTRY ORDERABLES Performing Organization Address City/[facility]/[place] [address] CERNER MILLENNIUM (ABNORMAL) CBC (with Diff) (06/22/2011 3:52 AM EST) P athologist Signature WBC 11.9 (H) 4.0 - 10.0 CERNER x10(3)/mcL MILLENNIUM RBC 3.95 (L) 4.63 - CERNER 6.08 MILLENNIUM x10(6)/mcL Hemoglobin 12.1 (L) 13.7 - CERNER 17.5 gm/dL MILLENNIUM Hematocrit 38.2 (L) 40.0 - CERNER 51.0 % MILLENNIUM MCV 96.7 (H) 79.0 - CERNER 92.0 fL MILLENNIUM MCH 30.6 25.6 - CERNER 32.2 pg MILLENNIUM MCHC 31.7 (L) 32.0 - CERNER 36.5 gm/dL MILLENNIUM Platelets 180 145 - 370 CERNER x10(3)/mcL MILLENNIUM RDWSD 49.8 (H) 35.0 - CERNER 46.0 fL MILLENNIUM RDWCV 14.0 10.9 - CERNER 14.4 % MILLENNIUM MPV 8.7 (L) 9.0 - 12.0 CERNER fL MILLENNIUM Specimen Anatomical Collection Method Collection Time Receive d Time (Source) Location / / Volume Laterality Blood specimen 06/22/2011 3:52 AM 011 4:04 (specimen) EST AM EST Narayan Gamino Jr., MD HEMATOLOGY ORDERABLES Performing Organization Address City/State/[place] [address] [facility] MILLENNIUM (ABNORMAL) POCT GLUCOSE LAB USE ONLY (06/21/2011 8:33 PM EST) P athologist Signature POC Glucose 222 (H) 60 - 199 CERNER mg/dL MILLENNIUM Comment: Supplemental ranges: <110 mg/dL before meals <200 mg/dL all other times of the day Specimen Anatomical Collection Method Collection Time Receive d Time (Source) Location / / Volume Laterality Blood specimen 06/21/2011 8:33 PM 011 8:33 (specimen) EST PM EST Narayan Gamino Jr., MD POINT OF CARE TEST ORDERABLE S Performing Organization Address [facility]/ZIP Code Phon e Number [address] CERNER MILLENNIUM POCT GLUCOSE LAB USE ONLY (06/21/2011 4:42 PM EST) P athologist Signature POC Glucose 198 60 - 199 CERNER mg/dL [facility] Comment: Supplemental ranges: <110 mg/dL before meals <200 mg/dL all other times of the day Specimen Anatomical Collection Method Collection Time Receive d Time (Source) Location / / Volume Laterality Blood specimen 06/21/2011 4:42 PM 011 4:42 (specimen) EST PM EST Narayan Gamino Jr., MD POINT OF CARE TEST ORDERLEESA S Performing Organization Address [facility]/ZIP Code Phon e Number [address] CERNER MILLENNIUM POCT GLUCOSE LAB USE ONLY (06/21/2011 3:19 PM EST) P athologist Signature POC Glucose 177 60 - 199 CERNER mg/dL [facility] Comment: Supplemental ranges: <110 mg/dL before meals <200 mg/dL all other times of the day Specimen Anatomical Collection Method Collection Time Receive d Time (Source) Location / / Volume Laterality Blood specimen 06/21/2011 3:19 PM 011 3:19 (specimen) EST PM EST Narayan Gamino Jr., MD POINT OF CARE TEST ORDERABLE S Performing Organization Address City/[facility]/[place] [address] CERNER MILLENNIUM SURGICAL PATHOLOGY REPORT (06/21/2011 2:40 PM EST) Component Value Ref Test Analysis Performed At [facility] gist Range Method Time Signature Surgical CERNER Pathology ? [facility] Report ? Provider: ?? NARAYAN GAMINO JR ??Pt. Name: ?? LEROY DAILEY ? Acc #: ?[id number] ?Pt. MRN: ?[id number] ? Col Date: ?? 06/21/20 11 ?/Sex: ?1955,(56 years),Male ? Rec Date: ?? 06/21/2011 ?LOC: ?3WST ? SURGICAL PATHOLOGY ? ---Pathologic Diagnosis--- ? Right below-knee ampuation specimen: ?1 - Charcot joint with severe degenerative pedersen e. ?2 - Ulcerations with inflamed granulating beds. ?3 - Margins viable, with mild muscular degenerat ion. ? 06/24/11 ? [facility] ? 06/24/11 Verified by: ? Black DO, Elizabeth C. ? Pathologist ? (Electronic Si gnature) ? The attending pathologist whose signature appears o n this report has ? reviewed all diagnostic slides and has edited the maría ss and/or ? microscopic portion of the report in rendering the fi nal pathologic ? diagnosis. ? ---Microscopic Description--- ? Slides reviewed, microscopic description not recorded . ? ---Gross Description--- ? Labeled/Fixative: ? Right below-knee amputation, fresh. ? Qty/Size/Weight: ?Single, 45.0 x 30.0 x 11.0 c m. ? Tissue Description: ?? Right lower leg with Charcot J oint ? deformity of the ank le. ?Margins: ? Appear viable with exposed tibia and fibula bones. ? Marginal vessels are patent. ?Skin: ?Discolored over the medial aspect and does not show ? any hair either on the foot or lower leg. ?Lesion: ?Lesion #1 - lateral malleolus, 2.5 x 2.0-cm, ? well-healed ulcer with granulating bed. ??Lesion #2 - ? medial malleolus, ext ending along the medial lower leg, 15.0 x 15.0 cm of ? dusky skin. ??No ulce rs are seen. ??Lesion #3 - 5.0 x 5.0-cm fluid-filled ? blister of the heel o f the foot. ??Sectioning it demonstrates a dark red, ? hemorrhagic blister base. ?Vessels: ?No calcific atherosclerosis is seen. ??Venae ?comitantes are sample d. ? Sections/Processing: ??(1) lesion 1; (2) lesion 2; (3) lesion 3; (4) ? vascular margins; (5) fibula margin; (6-7) tibial ? margin; (8-9) cross section of ankle caps ule; (10) soft tissue margin. ? (R10) aje/DPN ? ---Clinical Information--- ? Specimen Submitted: ? [facility] ? Provider: ?? NARAYAN GAMINO JR ??Pt. Name: ?? LEROY DAILEY ? Acc #: ?[id number] ?Pt. MRN: ?[id number] ? Col Date: ?? 06/21/20 11 ?/Sex: ?1955,(56 years),Male ? Rec Date: ?? 06/21/2011 ?LOC: ?3WST ? SURGICAL PATHOLOGY ? A - Rt below the knee amputation ? Clinical History/Diagnosis: ? Diabetic foot ulcer Specimen (Source) Anatomical Collection Method Collection Time Re ceived Time Location / / Volume Laterality 06/21/2011 2:40 PM EST Narayan Gamino Jr., MD PATHOLOGY/CYTOLOGY ORDERABLE S Performing Organization Address City/[facility]/ZIP Code Phon e Number [address] [facility] Specimen to Pathology (surgical or derm) (06/21/2011 1:47 PM EST) Specimen Anatomical Collection Method Collection Time Receive d Time (Source) Location / / Volume Laterality AP Specimen 06/21/2011 1:47 PM 1 1:47 EST PM EST Narrative [facility] - 06/21/2011 1:[address] Specimen requisition ordered. ??Separate Pathology report to follow Narayan Gamino Jr., MD PATHOLOGY/CYTOLOGY ORDERABLE S Performing Organization Address City/[facility]/ZIP Code Phon e Number [address] [facility] (ABNORMAL) POCT GLUCOSE LAB USE ONLY (06/21/2011 10:19 AM EST) athologist Signature POC Glucose 357 (H) 60 - 199 CERNER mg/dL [facility] Comment: Supplemental ranges: <110 mg/dL before meals <200 mg/dL all other times of the day Specimen Anatomical Collection Method Collection Time Receive d Time (Source) Location / / Volume Laterality Blood specimen 06/21/2011 10:19 1 (specimen) AM EST 10:19 AM EST Narayan Gamino Jr., MD POINT OF CARE TEST ORDERABLE S Performing Organization Address City/State/[place] [address] [facility] documented in this encounter Visit Diagnoses Diagnosis S/P BKA (below knee amputation) - right lower extremity - Primary Lower limb amputation, below knee Open wound of right ankle Open wound of knee, leg (except thigh), and ankle, without mention of complication Diabetes mellitus with neuropathy Type II or unspecified type diabetes fredo litus with neurological manifestations, not stated as uncontrolled Transplant kidney Kidney replaced by transplant HTN (hypertension) Unspecified essential hypertension Puncture wound of thumb, left Open wound of finger(s) , without mentio n of complication Tremor, essential Essential and other specified forms of t remor Hypercholesteremia Pure hypercholesterolemia documented in this encounter Administered Medications Inactive Administered Medications - up to 3 most recent administrations Medication Order MAR Action Action Date Dose Rate Site acetaminophen (TYLENOL) tablet Given 06/24/2011 6:00 AM EST 1,00 0 mg 1,000 mg 1,000 mg, Oral, EVERY 8 HOURS SCHEDULED, First dose on Tue06/21/11 at 2200, Until Discontinued, Maximum dose of acetaminophen is 4000 mg from all sources in 24 hours., Routine Given by Other 06/23/2011 10:00 PM EST 1,000 mg Given 06/23/2011 2:38 PM EST 1,000 mg aspirin tablet 325 mg Given 06/24/2011 9:00 AM EST 325 mg 325 mg, Oral, 2 TIMES DAILY, First dose on Tue06/21/11 at 2100, Until Discontinued, Routine Given 06/23/2011 8:15 PM EST 325 mg Given 06/23/2011 10:16 AM EST 325 mg bisacodyl (DULCOLAX) suppository 10 mg Given 06/23/2011 3:23 PM EST 10 mg 10 mg, Rectal, 2 TIMES DAILY PRN, Starting on Tue06/23/11 at 1146, Until Tue06/24/11 at 1633, Constipation, Routine esomeprazole (NEXIUM) capsule 40 mg Given 06/24/2011 9:00 AM EST 40 mg 40 mg, Oral, DAILY, First dose on Tue06/22/11 at 0900, Until Discontinued, Routine Given 06/23/2011 10:16 AM EST 40 mg Given 06/22/2011 9:15 AM EST 40 mg fentaNYL 50mcg/mL injection New Bag 06/21/2011 10:55 AM EST 25 mcg mL/hr 25 mcg, Intravenous, EVERY 1 MIN PRN, Starting on Tue06/21/11 at 1012, Until Tue06/21/11 at 1309, Pain, Day of Surgery (Day of Procedure), Routine fluticasone (FLONASE) 50 mcg/Actuation nasal Given 07/2010 9:00 AM EST 1 spray spray 1 spray 1 spray, Each Nare, DAILY, First dose on Tue06/21/11 at 1800, Until Discontinued, Routine Given 06/23/2011 10:16 AM EST 1 spray Given 06/22/2011 9:15 AM EST 1 spray folic acid (FOLVITE) tablet 2,000 mcg Given 06/24/2011 9:00 AM EST 2,000 mcg 2,000 mcg (2 mg), Oral, DAILY, First dose on Tue06/22/11 at 0900, Until Discontinued, Routine Given 06/23/2011 10:16 AM EST 2,000 mcg Given 06/22/2011 9:15 AM EST 2,000 mcg HYDROmorphone (DILAUDID) tablet 2-6 mg Given 06/22/2011 11:46 AM EST 6 mg 2-6 mg, Oral, EVERY 4 HOURS PRN, Starting on Tue06/22/11 at 1143, Until Tue06/22/11 at 1501, Pain, Routine HYDROmorphone (DILAUDID) tablet 2-6 mg Given 06/23/2011 12:14 PM EST 4 mg 2-6 mg, Oral, EVERY 3 HOURS PRN, Starting on Tue06/22/11 at 1500, Until Tue06/24/11 at 1633, Pain, Routine Given 06/23/2011 3:10 AM EST 6 mg Given 06/22/2011 9:05 PM EST 6 mg insulin aspart (novoLOG) 100 unit/mL PEN injection 1 dose, Starting on Tue06/21/11 at 1029 , Until Tue06/21/11 at 1045, MC BOO: Diogenesektat Override insulin aspart (novoLOG) PEN injection 25 Given 2010 10:45 AM EST 25 Units Units 25 Units, Subcutaneous, ONCE, 1 dose, On Tue06/21/11 at 1100, Day of Surgery (Day of Procedure), Routine insulin aspart (novoLOG) PEN injection 3-12 Given 07/2010 11:30 AM EST 6 Units Units 3-12 Units, Subcutaneous, 4 TIMES DAILY BEFORE MEALS & NIGHTLY, First dose on Tue06/21/11 at 1630, Until Discontinued, 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 TDD (total daily dose of all insulin needed to achieve glycemic control) greater than 60 units BG 140 - 160 Give 3 units BG 161 - 200 Give 6 units BG 201 - 240 Give 9 units BG greater than 240, give 12 units every 2 hours until BG less than 240 (no more than three times) & call for new basal insulin orders , Routine Given 06/24/2011 7:30 AM EST 6 Units Given 06/23/2011 8:21 PM EST 9 Units insulin NPH human recomb (humuLIN;novoLIN) Given 06/23 8:16 PM EST 40 Units injection 40 Units 40 Units, Subcutaneous, NIGHTLY, First dose on Tue06/21/11 at 2100, Until Discontinued, Routine Given 06/22/2011 9:00 PM EST 40 Units Given 06/21/2011 8:50 PM EST 40 Units insulin NPH human recomb (humuLIN;novoLIN) Given 06/24 7:00 AM EST 70 Units injection 70 Units 70 Units, Subcutaneous, EVERY MORNING, First dose on Tue06/22/11 at 0700, Until Discontinued, Routine Given 06/23/2011 10:16 AM EST 70 Units Given 06/22/2011 7:00 AM EST 70 Units lactated ringers infusion 1,000 New Bag 06/21/2011 4:00 PM EST 1,000 mLs 100 mL/hr mL 1,000 mL, at 100 mL/hr, Intravenous, CONTINUOUS, Starting on Tue06/21/11 at 1600, Until Tue06/22/11 at 0712 losartan (COZAAR) tablet 50 mg Given 06/24/2011 9:00 AM EST 50 mg 50 mg, Oral, DAILY, First dose on Tue06/22/11 at 0900, Until Discontinued, Routine Given 06/23/2011 10:16 AM EST 50 mg Given 06/22/2011 9:15 AM EST 50 mg midazolam (VERSED) injection 0.5 mg New Bag 06/21/2011 10:55 AM EST 2 mg mL/hr 0.5 mg, Intravenous, EVERY 1 MIN PRN, Starting on Tue06/21/11 at 1012, Until Tue06/21/11 at 1309, Anxiety, procedural anxiety, Day of Surgery (Day of Procedure), Routine montelukast (SINGULAIR) tablet 10 mg Given 06/24/2011 9:00 AM EST 10 mg 10 mg, Oral, DAILY, First dose on Tue06/22/11 at 0900, Until Discontinued, Routine Given 06/23/2011 10:16 AM EST 10 mg Given 06/22/2011 9:16 AM EST 10 mg morphine 1 mg/mL LOAD OUT WORKER 30 mL New Syringe/Cartridge 06/21/2011 4:00 PM EST mL/hr Intravenous, LOAD OUT WORKER ONLY, Starting on Tue06/21/11 at 1600, Until Tue06/22/11 at 0750, LOADING DOSE (0-4 mg): zero, LOAD OUT WORKER DOSE (0.5-1.5 mg): 1 mg, LOCKOUT INTERVAL (5-20 minutes): : 5 min, CONTINUOUS Infusion Rate (for opioid tolerant patients only): zero, FOUR HOUR DOSE LIMIT (5-30 mg): : 30 mg moxifloxacin (AVELOX) tablet 400 mg Given 06/22/2011 9:00 AM EST 400 mg 400 mg, Oral, DAILY, First dose on Tue06/21/11 at 1845, Until Discontinued, Routine, Restricted Antibiotic: Please indicate the most appropriate choice: Pre-approved Indication (State the indication in Comments field) Given 06/21/2011 7:26 PM EST 400 mg multivitamin (THERAGRAN) tablet 1 tablet Given 06/24/2011 9:00 AM EST 1 tablet 1 tablet, Oral, DAILY, First dose on Tue06/22/11 at 0900, Until Discontinued Given 06/23/2011 10:16 AM EST 1 tablet Given 06/22/2011 9:16 AM EST 1 tablet mycophenolate (CELLCEPT) capsule 500 mg Given 06/24/2011 9:00 AM EST 500 mg 500 mg, Oral, 2 TIMES DAILY, First dose on Tue06/21/11 at 2100, Until Discontinued, Routine Given 06/23/2011 8:16 PM EST 500 mg Given 06/23/2011 10:16 AM EST 500 mg ondansetron (ZOFRAN) injection 4 mg Given 06/21/2011 4:04 PM EST 4 mg 4 mg, Intravenous, EVERY 30 MIN PRN, Starting on Tue06/21/11 at 1457, Until Tue06/21/11 at 1652, Nausea, May repeat 4 mg once in 30 minutes. Consider prochlorperazine if ineffective., PACU Recovery, Routine ondansetron (ZOFRAN) injection 4 mg Given 06/23/2011 8:16 AM EST 4 mg 4 mg, Intravenous, EVERY 8 HOURS PRN, Starting on Tue06/21/11 at 1730, Until Lucie 06/24/11 at 1633, Nausea, Vomiting, Routine Given 06/22/2011 12:20 AM EST 4 mg OXYcodone (ROXICODONE) immediate release Given 06/22/2011 9:18 A M EST 15 mg tablet 15 mg 15 mg, Oral, EVERY 4 HOURS PRN, Starting on Tue06/21/11 at 1730, Until 06/22/11 at 1143, Pain, severe pain, For severe pain. Do not exceed 15 mg in 4 hours. If pain not relieved, call provider., Routine propranolol (INDERAL LA) SR Capsule 160 mg Given 06/24/2011 9:00 AM EST 160 mg 160 mg, Oral, 2 TIMES DAILY, First dose on Tue06/21/11 at 2100, Until Discontinued, Routine Given 06/23/2011 8:16 PM EST 160 mg Given 06/23/2011 10:16 AM EST 160 mg senna-docusate (PERICOLACE) 8.6-50 mg per Given 2010 9:00 AM EST 2 tablets tablet 1-4 tablet 1-4 tablet, Oral, 2 TIMES DAILY, First dose on Tue06/21/11 at 2100, Until Discontinued, Start with 1 tablet or liquid equivalent orally twice daily and titrate up to achieve: 1. One bowel movement at least every 48 hours, AND 2. Without straining, Routine Given 06/23/2011 8:16 PM EST 4 tablets Given 06/23/2011 10:16 AM EST 2 tablets simvastatin (ZOCOR) tablet 10 mg Given 06/23/2011 5:18 PM EST 10 mg 10 mg, Oral, NIGHTLY, First dose on Tue06/21/11 at 2100, Until Discontinued, Routine Given 06/22/2011 9:00 PM EST 10 mg Given 06/21/2011 8:21 PM EST 10 mg sodium chloride 0.9 % flush 10 mL New Bag 06/22/2011 7:45 AM EST 10 mLs mL/hr 10 mL, Intravenous, CONTINUOUS, Starting on Tue06/22/11 at 0745, Until Tue06/23/11 at 0206 sodium chloride 0.9 % flush 5 mL Given 06/23/2011 6:00 PM EST 5 mLs 5 mL, Intravenous, EVERY 12 HOURS, First dose on Tue06/21/11 at 1800, Until Discontinued Given 06/22/2011 5:03 PM EST 5 mLs Given 06/22/2011 6:00 AM EST 5 mLs sodium chloride 0.9% infusion New Bag 06/23/2011 2:30 AM EST 100 mL/hr 100 mL/hr 100 mL/hr, Intravenous, CONTINUOUS, Starting on Tue06/23/11 at 0230, Until Lucie 06/24/11 at 1215 sodium polystyrene (KAYEXALATE) 15 g/60 mL oral Given 06/22/2011 9:14 AM EST 15 g suspension 15 g 15 g, Oral, ONCE, 1 dose, On Tue06/22/11 at 0800, Routine tacrolimus (PROGRAF) capsule 1 mg Given 06/24/2011 9:00 AM EST 1 mg 1 mg, Oral, 2 TIMES DAILY, First dose on Tue06/21/11 at 2100, Until Discontinued, Routine Given 06/23/2011 8:17 PM EST 1 mg Given 06/23/2011 10:16 AM EST 1 mg vancomycin 1 g in sodium chloride Given 06/22/2011 4:[address] 1,000 mg 166.7 mL/hr 0.9% 250 mL 1,000 mg (1 g), Intravenous, EVERY 12 HOURS, 2 doses, First dose on Tue06/21/11 at 1600, Last dose on Tue06/22/11 at 0400, Administer over 90 Minutes, 15 mg/kg/dose for 2 doses postoperatively. Adjust to 12 hours from intraoperative dose. documented in this encounter Active and Recently Administered Medications Times are shown in EST. Scheduled Medication Order 06/22/2011 06/23/2011 06/24/2011 acetaminophen (TYLENOL) tablet 1,000 mg 0600 (Given - Provider: Nikolay Wyatt, SHEILA)1440 (Given - Provider: Andria Vazquez RN)2140 (Given - Provider: Ashley De Leon, SHEILA) 0600 (Not Given - Provider: Mer reveles RN - Reason: Patient Unable - Comment: pt had vomited)1438 (Given - Provider: Lizbeth Mcclure RN)2200 (Given by Other - Provider: Jael Vela, SHEILA) 0600 (Given - Provider: Jael Vela, SHEILA)1400 (Due) 1,000 mg, Oral, EVERY 8 HOURS SCHEDULED, First dose on Tue06/21/11 at 2200, Until Discontinued, Maximum dose of acetaminophen is 4000 mg from all sources in 24 hours., Routine aspirin tablet 325 mg 0915 (Given - Provider: Iraida Vazquez RN)2100 (Given - Provider: Ashley De Leon RN) 1015 (Given - Provider: Lizbeth hamm RN)2014 (Given - Provider: Andria Vazquez RN) 0900 (Given - Provider: Nicky Hardy) 325 mg, Oral, 2 TIMES DAILY, First dose on Tue06/21/11 at 2100, Until Discontinued, Routine esomeprazole (NEXIUM) capsule 40 mg (CANCELED) 0915 (Mee mcgowanen - Provider: Andria Vazquez RN) 1015 (Given - Provider: Lizbeth Mcclure RN) 0900 (G iven - Provider: Nicky Hardy) 40 mg, Oral, DAILY, First dose on Tue at 0900, Until Discontinued, Routine fluticasone (FLONASE) 50 mcg/Actuation nasal spray 1 s pray (CANCELED) 0915 (Given - Provider: Andria Vazquez RN) 1015 (Given - Provider: Lizbeth Mcclure RN) 0900 (Given - Provider: Nicky Salinas ies) 1 spray, Each Nare, DAILY, First dose on Tue06/21/11 at 1800, Until Discontinued, Routine folic acid (FOLVITE) tablet 2,000 mcg (CANCELED) 0915 (Given - Provider: Andria Vazquez, RN) 1016 (Given - Provider: Lizbeth Mcclure, SHEILA) 0900 (G iven - Provider: Nicky Hardy) 2 mg = 2,000 mcg, Oral, DAILY, First dos e on Tue06/22/11 at 0900, Until Discontinued, Routine insulin aspart (novoLOG) PEN injection 3-12 Units 0730 (Given - Provider: Nikolay Wyatt RN)1230 (Not Given - Provider: Latoya Gonzalez RN - Reason: Contraindicated)1630 (Not Given - Provider: Andria Vazquez RN - Reason: Contraindicated) 0730 (Given - Provider: Mer anderson RN)1130 (Given - Provider: Lizbeth Mcclure, SHEILA)1430 (Given - Provider: Lizbeth Mcclure, SHEILA)1653 (Given - Provider: Lizbeth Mcclure RN) 0730 (Given - Provider: Jael Vela RN)1130 (Given - Provider: Nicky Hardy - Comment: bg 170) 3-12 Units, Subcutaneous, 4 TIMES DAILY BEFORE MEALS & NIGHTLY, First dose on Tue06/21/11 at 1630, Until Discontinued, 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 TDD (total daily d 2100 (Not Given - Provider: Ashley De Leon RN - Reason: Order parameters not met) 183 (Not Given - Provider: Lizbeth Mcclure RN - Reason: Order parameters not met)2020 (Given - Provider: Andria Vazquez RN) ose of all insulin needed to achieve gly cemic control) greater than 60 units BG 140 - 160 Give 3 units BG 161 - 200 Give 6 units BG 201 - 240 Give 9 units BG greater than 240, give 12 units every 2 hour s until BG less than 240 (no more than t hree times) & call for new basal insulin orders , Routine insulin NPH human recomb (humuLIN;novoLIN) injection 4 0 Units 2099 (Given - Provider: Ashley De Leon, SHEILA) 2015 (Given - Provider: Adnria Vazquez RN) 40 Units, Subcutaneous, NIGHTLY, First d ose on Tue06/21/11 at 2100, Until Discontinued, Routine insulin NPH human recomb (humuLIN;novoLIN) injection 7 0 Units 0700 (Given - Provider: Nikolay Wyatt, RN) 1015 (Given - Provider: Lizbeth Mcclure RN) 07 (Given - Provider: Jael Vela RN) 70 Units, Subcutaneous, EVERY MORNING, F irst dose on Tue06/22/11 at 0700, Until Discontinued, Routine losartan (COZAAR) tablet 50 mg (CANCELED) 0915 (Given - Provider: Andria Vazquez RN) 1015 (Given - Provider: Lizbeth Mcclure RN) 09 (G iven - Provider: Nicky Hardy) 50 mg, Oral, DAILY, First dose on Tue at 0900, Until Discontinued, Routine montelukast (SINGULAIR) tablet 10 mg (CANCELED) 09 ( Given - Provider: Andria Vazquez RN) 1015 (Given - Provider: Lizbeth Mcclure RN) 899 (G iven - Provider: Nicky Hardy) 10 mg, Oral, DAILY, First dose on Tue at 0900, Until Discontinued, Routine moxifloxacin (AVELOX) tablet 400 mg (CANCELED) 899 (G iven - Provider: Andria Vazquez RN) 400 mg, Oral, DAILY, First dose on Tue08/21/10 at 1845, Until Discontinued, Routine multivitamin (THERAGRAN) tablet 1 tablet (CANCELED) 09 (Given - Provider: Andria Vazquez RN) 1015 (Given - Provider: Lizbeth Mcclure RN) 09 (G iven - Provider: Nicky Hardy) 1 tablet, Oral, DAILY, First dose on Tue06/22/11 at 0900, Until Discontinued, Routine mycophenolate (CELLCEPT) capsule 500 mg 09 (Given - Provider: Andria Vazquez RN)2099 (Given - Provider: Ashley De Leon RN) 1015 (Given - Provider: Lizbeth Mcclure RN)2015 (Given - Provider: Andria Vazquez RN) 09 (Given - Provider: Nicky Hardy) 500 mg, Oral, 2 TIMES DAILY, First dose on Tue06/21/11 at 2100, Until Discontinued, Routine propranolol (INDERAL LA) SR Capsule 160 mg (CANCELED) 09 (Given - Provider: Andria Vazquez RN)2099 (Given - Provider: Ashley De Leon, SHEILA) 1016 (Given - Provider: Lizbeth Mcclure, SHEILA)2015 (Given - Provider: Andria Vazquez RN) 0900 (Given - Provider: Nicky Hardy) 160 mg, Oral, 2 TIMES DAILY, First dose on Tue06/21/11 at 2100, Until Discontinued, Routine senna-docusate (PERICOLACE) 8.6-50 mg per tablet 1-4 t ablet 0917 (Given - Provider: Andria Vazquez RN)2099 (Given - Provider: Ashley De Leon, SHEILA) 1016 (Given - Provider: Lizbeth Mcclure, SHEILA)2015 (Given - Provider: Andria Vazquez RN) 0900 (Given - Provider: Nicky Salinas ies) 1-4 tablet, Oral, 2 TIMES DAILY, First d ose on Tue06/21/11 at 2100, Until Discontinued, Start with 1 tablet or liquid equivalent orally twice daily and titrate up to achieve: 1. One bowel movement at l east every 48 hours, AND 2. Without straining, Routine simvastatin (ZOCOR) tablet 10 mg (CANCELED) 2099 (Give n - Provider: Ashley De Leon, SHEILA) 1718 (Given - Provider: Lizbeth Mcclure, SHEILA) 10 mg, Oral, NIGHTLY, First dose on Tue06/21/11 at 2100, Until Discontinued, Routine sodium chloride 0.9 % flush 5 mL (CANCELED) 0600 (Give n - Provider: Nikolay Wyatt, SHEILA)1703 (Given - Provider: Andria Vazquez RN) 0600 (Not Given - Provider: Mer Stokes RN - Reason: See comment - Comment: IV running)1800 (Given - Provider: Lizbeth Mcclure RN) 0600 (Not Given - Provider: Jael Vela RN - Reason: See comment - Comment: running iv) 5 mL, Intravenous, EVERY 12 HOURS, First dose on Tue06/21/11 at 1800, Until Discontinued, Routine sodium polystyrene (KAYEXALATE) 15 g/60 mL oral suspen gaby 15 g (COMPLETED) 0914 (Given - Provider: Andria Vazquez RN - Comment: sent up late by pharmacy.) 15 g, Oral, ONCE, 1 dose, Tue06/22/11 at 0800, Routine tacrolimus (PROGRAF) capsule 1 mg (CANCELED) 0917 (Giv en - Provider: Andria Vazquez RN)2100 (Given - Provider: Ashley De Leon RN) 1016 (Given - Provider: Lizbeth Mcclure RN)2017 (Given - Provider: Andria Vazquez RN) 0900 (Given - Provider: Nicky Hardy) 1 mg, Oral, 2 TIMES DAILY, First dose on Tue06/21/11 at 2100, Until Discontinued, Routine vancomycin 1 g in sodium chloride 0.9% 250 mL ( ) 0100 (Not Given - Provider: Nikolay Wyatt RN - Reason: See comment - Comment: med to be given at 0400)0400 (Given - Provider: Nikolay Wyatt, SHEILA) 1 g = 1,000 mg, Intravenous, EVERY 12 HO URS, 2 doses, First dose on Tue06/21/11 at 1600, Last dose on Tue06/22/11 at 0400, for 90 Minutes, 15 mg/kg/dose for 2 doses postoperatively. Adjust to 12 hours from intraoperative dose. Continuous Medication Order 06/22/2011 06/23/2011 06/24/2011 sodium chloride 0.9 % flush 10 mL (CANCELED) 0745 (New Bag - Provider: Andria Vazquez RN) 10 mL, Intravenous, CONTINUOUS, Starting Tue06/22/11 at 0745, Until Tue06/23/11 at 0206, Routine sodium chloride 0.9% infusion (CANCELED) 0230 (New Bag - Provider: Mer Stokes RN) 100 mL/hr, at 100 mL/hr, Intravenous, CO NTINUOUS, Starting Tue06/23/11 at 0230, Until Lucie 06/24/11 at 1215 PRN Medication Order 06/22/2011 06/23/2011 06/24/2011 bisacodyl (DULCOLAX) suppository 10 mg (CANCELED) 1523 (Given - Provider: Lizbeth Mcclure, SHEILA) 10 mg, Rectal, 2 TIMES DAILY PRN, Starti ng Wed 06/23/11 at 1146, Until Tue06/24/11 at 1633, Constipation, Routine HYDROmorphone (DILAUDID) tablet 2-6 mg (CANCELED) 1146 (Given - Provider: Andria Vazquez RN)1515 (Not Given - Provider: Andria Vazquez RN - Reason: See comment - Comment: already given) 2-6 mg, Oral, EVERY 4 HOURS PRN, Startin g Tue06/22/11 at 1143, Until Tue06/22/11 at 1501, Pain, Routine HYDROmorphone (DILAUDID) tablet 2-6 mg 1502 (Given - P rovider: Andria Vazquez RN)1805 (Given - Provider: Andria Vazquez RN)2105 (Given - Provider: Ashley De Leon RN) 0310 (Given - Provider: Mer anderson RN)0701 (Not Given - Provider: Mer Stokes RN - Reason: Patient Unable - Comment: patient had vomited)1214 (Given - Provider: Lizbeth Mcclure, SHEILA) 2-6 mg, Oral, EVERY 3 HOURS PRN, Startin g Tue06/22/11 at 1500, Until Lucie 06/24/11 at 1633, Pain, Routine ondansetron (ZOFRAN) injection 4 mg (CANCELED) 0020 (G iven - Provider: Mer Stokes, SHEILA) 0816 (Given - Provider: Lizbeth Mcclure, SHEILA) 4 mg, Intravenous, EVERY 8 HOURS PRN, St arting Tue06/21/11 at 1730, Until Lucie 06/24/11 at 1633, Nausea, Vomiting, Routine OXYcodone (ROXICODONE) immediate release tablet 15 mg (CANCELED) 0918 (Given - Provider: Andria Vazquez RN) 15 mg, Oral, EVERY 4 HOURS PRN, Starting Tue06/21/11 at 1730, Until Tue06/22/11 at 1143, Pain, severe pain, For severe pain. Do not exceed 15 mg in 4 hours. If pain not relieved, call provider., Routine documented in this encounter Care Teams Blaster Helper Relationship Specialty Start Date End Date Candido Jenkins MD PCP - General 05/20/11 04/01/13 [address] [place] [address] documented as of this encounter
--- OUTSIDE RECORDS SUMMARY | 2022-05-24 11:00 | XMS_ITS | Encounter Summary ---
:1955 Author Organization [facility] [place] [address] Care Team Providers Name Role Phone Candido Jenkins MD Primary Care Provider Encounter Details Date Type Department Care Team Description 08/09/2011 [place] Aud[place] [facility] [place] Corinne Turner Sensorineural hearing loss, bilateral (Primary Dx); [facility] [address] [place] [address] [address] [address] [phone] AUDIOLOGY DEPT [place], [place] [address] Social History Tobacco Use Types Packs/Day Years Used Date Former Smoker Cigarettes 2 20 Quit: 01/19/19 93 Smokeless Tobacco: Never Used Alcohol Use Standard Drinks/Week Comments No 0 (1 standard drink = 0.6 oz pure alcoho l) Sex Assigned at Date Recorded Not on file documented as of this encounter Progress Notes Corinne Turner, - 08/11/2011 9:06 PM EST AUDIOLOGIC EVALUATION SUMMARY BACKGROUND: Leroy Torres was seen today for an updated audiological evaluation. The following is a summary of his background information either shared by Mr. Torres or already in his medical record: Last evaluated in this clinic on 01/07/2010 when a bilateral high frequency sensorineural hearing loss was recorded. Hearing aid use was recommended however, he was unable to pursue this option due tofunding issues. He now has insurance which will fund amplification. 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 Right ear: Pure tone test results revealed a borderline normal sloping to severe sensorineural hearing loss. Speech discrimination for words presented in quiet at an elevated listening level was excellent (92%). Left ear: Pure tone test results revealed a borderline normal sloping to severe sensorineural hearing loss. Speech discrimination for words presented in quiet at an elevated listening level was excellent (96%). See audiogram dated 08/09/2011. Test results and communication implications of his loss were reviewed with Mr. Torres. Today's results demonstrate stable hearing since the last evaluation of 01/07/2010. RECOMMENDATIONS: 1. Hearing aid evaluation upon patient request. Mr. Torres would like to proceed with this recommendation and the necessary appointments were arranged for him. 2. Use of behavioral tactics (eg. [id number] communication, reduction of background noise, etc) tohelp compensate for the difficulties created by the loss. 3. Audiologic re-evaluation in one year, or sooner as medically indicated, to monitor hearing sensitivity. Prince Turner MS,[facility]A Clinical Program And [place] [address] (fax) documented in this encounter Plan of Treatment Upcoming Encounters Date Type Specialty Care Team Description 05/26/2022 Office Visit Otolaryngology Ricardo Panda PA [facility] [place], [place] [address] (Wo rk) 06/02/2022 Infusion Hematology and Oncology 06/16/2022 Infusion Hematology and Oncology 06/21/2022 Office Visit Neurology Tyler Rojas MD [facility] [address] [place], [place] [phone] (Wo rk) 06/30/2022 Infusion Hematology and Oncology 07/14/2022 Infusion Hematology and Oncology 07/28/2022 Infusion Hematology and Oncology 08/11/2022 Infusion Hematology and Oncology 11/04/2022 Office Visit Rheumatology Dante Freedman PA [facility] RHEUMATOLOGY [place], [place] [address] (Wo rk) documented as of this encounter Visit Diagnoses Diagnosis Sensorineural hearing loss, bilateral - Primary Tinnitus Unspecified tinnitus documented in this encounter Care Teams Production Material Coordinator Relationship Specialty Start Date End Date Candido Jenkins MD PCP - General 05/20/11 04/01/13 [address] [place] [address] documented as of this encounter
--- OUTSIDE RECORDS SUMMARY | 2022-05-24 11:00 | XMS_ITS | Encounter Summary ---
:1955 Author Organization [place] [address] Care Team Providers Name Role Phone Candido Jenkins MD Primary Care Provider Reason for Referral Consultation (Routine) - Declined by Patient Specialty Diagnoses / Procedures Referred By Contact Refer red To Contact Sleep Center Diagnoses Diabetes mellitus Margaret Sawyer APRN [facility] [address] [place] [address] [place] [address] Referral ID Status Reason Start Expiration Visits Visits Date Date Requested Authorized [id number] Declined by Evaluate and 11/08/2011 05/06/2012 1 1 Patient Treat Reason for Visit Reason Comments Diabetes Encounter Details Date Type Department Care Team Description 11/08/2011 Office Visit Endocrinology at [facility] Margaret Sawyer, Diabetes; [facility] Giovana tyler APRN Diabetes mellitus; [place] [address] [facility] MEDICAL [facility] [phone] ENDOCRINOLOGY DEPT. [place] [address] Social History Tobacco Use Types Packs/Day Years Used Date Former Smoker Cigarettes 2 20 Quit: 01/19/19 93 Smokeless Tobacco: Never Used Alcohol Use Standard Drinks/Week Comments No 0 (1 standard drink = 0.6 oz pure alcoho l) Sex Assigned at Date Recorded Not on file documented as of this encounter Last Filed Vital Signs Vital Sign Reading Time Taken Comments Blood Pressure 149/67 11/08/2011 11:30 AM EDT Pulse 68 11/08/2011 11:30 AM EDT Temperature - - Respiratory Rate - - Oxygen Saturation - - Inhaled Oxygen Concentration - - Weight 141.1 kg (311 lb) 11/08/2011 11:30 AM EDT Height 193 cm (6' 4) 11/08/2011 11:30 AM EDT Body Mass Index 37.86 11/08/2011 11:30 AM EDT documented in this encounter Patient Instructions Patient InstructionsMargaret Sawyer APRN - 11/08/2011 12:07 PM EDT Strength training exercises two times/week. Start with 5 lb weights for 8 repetitions for upper body Target fasting glucose in AM is under 130. Increase PM NPH insulin to 44 units tonight. Increase by 4 units weekly until FBG in AM is under 130 documented in this encounter Progress Notes Margaret Sawyer APRN - 11/08/2011 1:05 PM EDT DATE OF VISIT: 11/08/2011 REASON FOR VISIT: Followup DM with many complications. BRIEF HISTORY: Presents with sister who also has DM and his girlfriend. States his glucose levels are around 180. Brings lab results from recent visit 10/22/2011 done at PCPs office. DIABETES REGIMEN: NPH 70 units a.m., 40 units p.m.; regular insulin up to 50 units three times a day. He states he stopped Novolog and Lantus and has a supply of those. COMPLICATIONS: Kidney failure, had kidney transplant three years ago. 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 PREVENTION STRATEGIES: Prevention strategies are up-to-date. REVIEW OF SYSTEMS: Depression and Mood: States he is doing okay. He was bothered by feeling bloated, but now he feels less bloated. Sts he is enjoying his new hearing aids. 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 No recent headaches or chest pain or shortness of breath. No recent GI symptoms. Appetite is good. Sleep pattern: Sister states he snores a lot and loudly. Extremities: Followed by Dr. [facility]z at [facility] for delayed wound healing of right BKA. Lab results, not available during office visit. Most recent hemoglobin A1c 8.4% on 10/22/2011 done at [facility]. PHYSICAL EXAMINATION: Appearance: He is in a wheelchair. He is obese. He states weight at PCP office was 311 pounds. Eyes: No retinopathy by green light exam. Neck: No thyromegaly or lymphadenopathy. Heart: Regular rate and rhythm. No murmurs: Lungs are clear to auscultation. Amputations as noted above. IMPRESSION AND PLAN: Diabetes mellitus type 2 in poor overall control with many complications. Reviewed blood glucose results from memory. Advised the patient to target fasting glucose level of under 130. Will increase NPH p.m. dose by 4 units weekly until fasting glucose levels are under 130. The patient requested refill of Neurontin. Takes up to 2 of the 300 mg tablets three times a day and needs a prescription to reflect that which was done and sent to his pharmacy. He also requests a refill of prescription for syringes which was done and sent to his pharmacy. This was a 31-minute office visit with 30 minute spent counseling with the patient and sister and his girlfriend. Also, he is at high risk for sleep apnea. Referral done to sleep center. The patient asked about his elevated potassium level. Recently, it was 5.3 and I gave him a copy of a low potassium meal plan to follow, which he states he thinks he does follow. Return to office in four months with Dr. Hernandez. Will check hemoglobin A1c and other labs that he is due for. documented in this encounter Plan of Treatment Upcoming Encounters Date Type Specialty Care Team Description 05/26/2022 Office Visit Otolaryngology Ricardo Panda PA [facility] Medical [facility] STELLA Blandon 0375 (Wo rk) 06/02/2022 Infusion Hematology and Oncology 06/16/2022 Infusion Hematology and Oncology 06/21/2022 Office Visit Neurology Tyler Rojas MD [facility] Dr Sofi [place], [place] [phone] (Wo rk) 06/30/2022 Infusion Hematology and Oncology 07/14/2022 Infusion Hematology and Oncology 07/28/2022 Infusion Hematology and Oncology 08/11/2022 Infusion Hematology and Oncology 11/04/2022 Office Visit Rheumatology Dante Freedman PA [facility] RHEUMATOLOGY [place], [place] 0[address] (Wo rk) Scheduled Referrals Name Type Priority Associated Diagnoses Order S chedule REFERRAL TO SLEEP Outpatient Referral Routine Diabetes mellitu s Ordered: [facility]ENTER 11/08/2011 documented as of this encounter Procedures Procedure Name Priority Date/Time Associated Diagnosis Comme nts VITAMIN D, Routine 11/08/2011 9:21 AM Diabetes Results f or this 25-HYDROXY EDT procedure are i n the results section. LDL CHOLESTEROL, Routine 11/08/2011 9:21 AM Diabetes Resul ts for this DIRECT EDT procedure are i n the results section. HDL/CHOL PROFILE Routine 11/08/2011 9:21 AM Diabetes Resul ts for this EDT procedure are i n the results section. documented in this encounter Results (ABNORMAL) HDL cholesterol (11/08/2011 9:21 AM EDT) athologist Signature Chol, Total 117 <=199 mg/dL [facility] Comment: Recommendations of the NCEP Adult Treatm ent Panel for the following risk cutoff thresholds for the [place] populatio n: Desirable: <200 mg/dL Borderline High: 200-239 mg/dL High: > or = 240 mg/dL HDL 22 (L) >=40 mg/dL [facility] Comment: Reference range: ??Low HDL: ?? < 40 mg/dL ??Normal: ?40-60 mg/dL ??Desirable: > 60 mg/dL SERENA 2001; 285(19):9601-2872 Chol/HDL Ratio 5.3 ratio [facility] Comment: A Cholesterol to HDL ratio below 4:1 is desirable. ??Studies suggest that increased CAD risk occurs at ratios abov e 5 for females and above 6 for men. ? [place] Heart Association ??(htt p://www.americanheart.org) ? [place] Int Med, 1994; 121:641 ? AM J Med, 1998; 105(1A):48S Specimen Anatomical Collection Method Collection Time Receive d Time (Source) Location / / Volume Laterality Blood specimen 11/08/2011 9:21 AM 012 9:21 (specimen) EDT AM EDT Resulting Agency Comment Spec In Lab Donell Hernandez MD CHEMISTRY ORDERABLES Performing Organization Address City/[facility]/ZIP Code Phon e Number [address] [facility] LDL cholesterol, direct (11/08/2011 9:21 AM EDT) athologist Signature LDL Chol 67 <=99 mg/dL [facility] Comment: The National Cholesterol Education Progr am (NCEP) has set the following guidelines for LDL Cholesterol: Reference range: ?? Optimal: ?<100 mg/dL ?? Near Optimal/Above Optimal: ?? 100-1 29 mg/dL ?? Borderline high: ?130-159 mg/dL ?? High: ? 160-189 mg/dL ?? Very high: ?>bd=140 mg/dL SERENA 2001: 285(19):1783-6788 Specimen Anatomical Collection Method Collection Time Receive d Time (Source) Location / / Volume Laterality Blood specimen 11/08/2011 9:21 AM 012 9:21 (specimen) EDT AM EDT Resulting Agency Comment Spec In Lab Donell Hernandez MD CHEMISTRY ORDERABLES Performing Organization Address City/[facility]/ZIP Code Phon e Number [address] [facility] (ABNORMAL) Vitamin D 25 hydroxy (11/08/2011 9:21 AM EDT) P athologist Signature 25-OH Vit D 21 (L) 30 - 100 CERNER Total ng/mL [...] of 08/31/2011 the Vitamin D Total, 25 Clymer xy assays are being analyzed by the [facility] Chemistry Laboratory. ??There is NO CHANGE in units. ??Please contact the chemistry laboratory at [phone] with martha pa. Specimen Anatomical Collection Method Collection Time Receive d Time (Source) Location / / Volume Laterality Blood specimen 11/08/2011 9:21 AM 012 9:21 (specimen) EDT AM EDT Resulting Agency Comment Spec In Lab Donell Hernandez MD CHEMISTRY ORDERABLES Performing Organization Address City/State/ZIP Code Phon e Number [place] [id number] [facility] documented in this encounter Visit Diagnoses Diagnosis Diabetes Type II or unspecified type diabetes fredo litus without mention of complication, not stated as uncontrolled Diabetes mellitus Type II or unspecified type diabetes fredo litus without mention of complication, not stated as uncontrolled Neuropathy Mononeuritis of unspecified site documented in this encounter Care Teams Lockstitcher Relationship Specialty Start Date End Date Candido Jenkins MD PCP - General 05/20/11 04/01/13 [address] [place] [address] documented as of this encounter
--- OUTSIDE RECORDS SUMMARY | 2022-05-24 11:00 | XMS_ITS | Encounter Summary ---
:1955 Author Organization [facility] [place] [address] Care Team Providers Name Role Phone Candido Jenkins MD Primary Care Provider Reason for Visit Reason Comments Wound Check s/p Right BKA Dos 06/21/11 Encounter Details Date Type Department Care Team Description 12/02/2011 Follow-Up [facility]edics at [facility], DR CRISTIAN Olsen, below knee, L; [facility] Giovana rive S/P BKA (below knee amputati on) - right lower extremity; [place] [address] Delayed wound healing; [phone] Diabetes mellit us with neuropathy; Type II diabete s mellitus with renal [...] encounter Progress Notes Lizzy Pennington RN - 12/02/2011 9:21 AM EDT EXTREMITY TEAM NURSE VISIT Case Date: 06/21/2011 Surgeon:HENNA ROY JR, MD - Procedure(s): AMPUTATION, BELOW-KNEE Subjective: I have the sugars down to about 200 now pretty consistently. Mom says the incision is doing much better. Objective: Patient arrived to clinic wearing his left leg prosthesis and a dressing and compression sleeve on the right. His incision is generally well approximated. There remain 3 open sites. Laterally he has a 13 x 15 x 3mm wound with a thin loosely adherent slough layer that has a bright granulation bed and good bleeding after debridement. Centromedially the wound measures 10 x 10 x 3mm. The most medial measures 9 x 13 x 6mm. Both of these wounds are clean and moist. The most medial has a thick slough layer that is easily debrided to healthy granulation. All of the periwound skin is soft. Stump is taking noce shape. He is and has been afebrile. [...] results. Patient to continue working with his out patient PT/OT for strengthening. VNA has D/C'd but family is able to perform dressing changes and recognize wound problems. He will continue to follow with his airplane woodworker with respect to his blood sugars. He has been working toward reducing his sugars to the 150 mrk but has had readings as high as 220. He will call with any change in his incision, fever, chills, malaise or concerns about his stump. Dr. Roy supervised this visit documented in this encounter Plan of Treatment Upcoming Encounters Date Type Specialty Care Team Description 05/26/2022 Office Visit Otolaryngology Ricardo Panda PA [facility] STELLA Blandon 0375 (Oscar escobedo) 06/02/2022 Infusion Hematology and Oncology 06/16/2022 Infusion Hematology and Oncology 06/21/2022 Office Visit Neurology Tyler Rojas MD [facility] Dr Sofi [place] [address] 6-[address]22 (Wo rk) 06/30/2022 Infusion Hematology and Oncology 07/14/2022 Infusion Hematology and Oncology 07/28/2022 Infusion Hematology and Oncology 08/11/2022 Infusion Hematology and Oncology 11/04/2022 Office Visit Rheumatology Dante Freedman PA [facility] RHEUMATOLOGY [place], [place] [address] (Wo rk) documented as of this encounter Visit Diagnoses Diagnosis Amputee, below knee, L Lower limb amputation, below knee S/P BKA (below knee amputation) - right lower extremity Lower limb amputation, below knee Delayed wound healing Open wound(s) (multiple) of unspecified site(s), complicated Diabetes mellitus with neuropathy Type II or unspecified type diabetes fredo litus with neurological manifestations, not stated as uncontrolled 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
--- OUTSIDE RECORDS SUMMARY | 2022-05-24 11:00 | XMS_ITS | Encounter Summary ---
:1955 Author Organization [facility] Address [facility] [place] [address] Care Team Providers Name Role Phone Candido Jenkins MD Primary Care Provider Encounter Details Date Type Department Care Team Description 11/08/2011 Office Visit Audiology at [facility] Mindy Moody AUD [facility] [place] [address] Fitting and adjustment [facility] Wan De Dios MD [facility] [place] [address] (Primary Dx) [place] [phone] Social History Tobacco Use Types Packs/Day Years Used Date Former Smoker Cigarettes 2 20 Quit: 01/19/19 93 Smokeless Tobacco: Never Used Alcohol Use Standard Drinks/Week Comments No 0 (1 standard drink = 0.6 oz pure alcoho l) Sex Assigned at Date Recorded Not on file documented as of this encounter Progress Notes Mindy Joiner, WENDI - 11/08/2011 10:09 AM EDT AUDIOLOGY HEARING AID CHECK Leroy Torres returns today after fitting of binaural hearing aids. Mr. Torres reported that he is understanding speech much better with the new hearing aids. His only concern was that, compared to the right hearing aid, the sound quality of the left aid seems . He requested extra wax guards. Otoscopy showed clear ear canals and no signs of irritation from the hearing aids. The following actions were taken: ?? A listening check indicated that both hearing aids were functioning appropriately. ?? Low frequency gain for the left aid was slightly increased, after which Mr. Torres reported that the sound quality was improved and similar to that of the right aid. ?? Simulated real ear measures were obtained for both hearing aids. ?? Mr. Torres was provided 3 extra packages of wax guards. HEARING AID(S): HEARING AID RIGHT LEFT Style ITC Same Make/Model Dimitri Ignite 20 Same Casing Color Beige faceplace/ red case Beige faceplate/blue case Serial Number [id number] Battery Size 312 312 Battery Club PROGRAM/SETTINGS Fitting Algorithm DSL-Adult Same Verification Method REM Same Programs P1= Normal (automatic omnidirectional/directional tiffany) P4= Autocoil (not in memory rotation Same Disabled Features Push button Same Other Comments HEARING AID WARRANTY Original Fit Date 10/25/11 10/25/11 Current Status Under director fraud repair and L&D coverage until 11/01/13 Under director fraud repair and L&D coverage until 11/01/13 EARMOLD (if BTE GARCIA) Lab EM (style/material/vent/color) Impression Date Invoice # Tube/KAMILLA (length/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 Patient was advised to contact the clinic if concerns arise in the interim. Wendi Joseph Clinical [place] [address] ; documented in this encounter Plan of Treatment Upcoming Encounters Date Type Specialty Care Team Description 05/26/2022 Office Visit Otolaryngology Ricardo Panda PA [facility] [place] [phone] (Wo rk) 06/02/2022 Infusion Hematology and Oncology 06/16/2022 Infusion Hematology and Oncology 06/21/2022 Office Visit Neurology Tyler Rojas MD [facility] Neurology [place], [place] [phone] (Wo rk) 06/30/2022 Infusion Hematology and Oncology 07/14/2022 Infusion Hematology and Oncology 07/28/2022 Infusion Hematology and Oncology 08/11/2022 Infusion Hematology and Oncology 11/04/2022 Office Visit Rheumatology Dante Freedman PA [facility] RHEUMATOLOGY [place], [place] [address] (Wo rk) documented as of this encounter Visit Diagnoses Diagnosis Fitting and adjustment of hearing aid - Primary documented in this encounter Care Teams Jazz Singer Relationship Specialty Start Date End Date Candido Jenkins MD PCP - General 05/20/11 04/01/13 [address] [place] [address] documented as of this encounter
--- OUTSIDE RECORDS SUMMARY | 2022-05-24 11:00 | XMS_ITS | Encounter Summary ---
:1955 Author Organization [facility] [place] [address] Care Team Providers Name Role Phone Candido Jenkins MD Primary Care Provider Reason for Visit Reason Comments Follow Up Surgery s/p Right BKA Dos 06/21/11 Encounter Details Date Type Department Care Team Description 10/18/2011 Follow-Up Orthopaedics at [facility] [place] [place] Nikolay Montez MD S/P BKA (below knee amputation) - right lower extremity; [facility] D rive [facility] Amputee, below knee, L; [place] [address] Delayed wound healing [phone] ORTHOPAEDIC SURGERY [place], [place] [address] Social History Tobacco Use Types Packs/Day Years Used Date Former Smoker Cigarettes 2 20 Quit: 01/19/19 93 Smokeless Tobacco: Never Used Alcohol Use Standard Drinks/Week Comments No 0 (1 standard drink = 0.6 oz pure alcoho l) Sex Assigned at Date Recorded Not on file documented as of this encounter Progress Notes Nikolay Montez MD - 10/18/2011 10:07 AM EDT DIAGNOSIS: 06/21/2011, right below-knee amputation with delayed wound healing, four major areas of closure by secondary intention; left below-knee amputation in the distant past. Mr. Torres is accompanied today by three friends. He reports that he has been in touch with the container washer from [facility]. He states that he needs a new left below-knee amputation because his leg is getting bigger and the prosthetic is six years old. On the right side, changes with Santyl have been done on a regular basis by the women he lives with who also serves as his nurse. There has been no other change in his past medical history. His sugars remain under marginal control. OBJECTIVE: I have evaluated the patient's right leg today. There are three major areas. We have some difficultly healing right far laterally. There is an ulcer that is 23 x 18 mm in size and approximately 5 mm deep. There is a far medial ulcer that is 9 x 16 x 6 mm deep and a near medial ulcer that is 15 x 10 x 5 mm deep. All three of these are debrided sharply. There is good bleeding from the far lateral ulcer, less bleeding from the two medial ulcers. Santyl is placed in the wounds. Small scab is taken from the more anterior ulceration, where there is good granulation present. The stump does appear swollen. No sign of infection is present. ASSESSMENT: Wound healing by secondary intention, right below-knee amputation site. PLAN: All areas are debrided as stated above. I have given a prescription for a new left below-knee prosthetic. We will see him back in two weeks for repeat wound debridement. documented in this encounter Plan of Treatment Upcoming Encounters Date Type Specialty Care Team Description 05/26/2022 Office Visit Otolaryngology Ricardo Panda PA [facility] Dr Rodriguez [place] [address] (Wo rk) 06/02/2022 Infusion Hematology and Oncology 06/16/2022 Infusion Hematology and Oncology 06/21/2022 Office Visit Neurology Tyler Rojas MD [facility] Neurology [place], [place] [phone] (Wo rk) 06/30/2022 Infusion Hematology and Oncology 07/14/2022 Infusion Hematology and Oncology 07/28/2022 Infusion Hematology and Oncology 08/11/2022 Infusion Hematology and Oncology 11/04/2022 Office Visit Rheumatology Dante Freedman PA [facility] RHEUMATOLOGY [place], [place] [address] (Wo rk) documented as of this encounter Visit Diagnoses Diagnosis S/P BKA (below knee amputation) - right lower extremity Lower limb amputation, below knee Amputee, below knee, L Lower limb amputation, below knee Delayed wound healing Open wound(s) (multiple) of unspecified site(s), complicated documented in this encounter Care Teams Major Gifts Manager Relationship Specialty Start Date End Date Candido Jenkins MD PCP - General 05/20/11 04/01/13 [address] [place] [address] documented as of this encounter
--- OUTSIDE RECORDS SUMMARY | 2022-05-24 11:00 | XMS_ITS | Encounter Summary ---
:1955 Author Organization [facility] [place] [address] Care Team Providers Name Role Phone Candido Jenkins MD Primary Care Provider Reason for Visit Reason Onset Date Comments Questions 08/24/2011 about asa Encounter Details Date Type Department Care Team Description 08/24/2011 Telephone Orthopaedics at [facility] Nikolay Montez MD Questions (about asa) [place] [phone] ORTHOPAEDIC SURGERY [place], [place] [address] Social History Tobacco Use Types Packs/Day Years Used Date Former Smoker Cigarettes 2 20 Quit: 01/19/19 93 Smokeless Tobacco: Never Used Alcohol Use Standard Drinks/Week Comments No 0 (1 standard drink = 0.6 oz pure alcoho l) Sex Assigned at Date Recorded Not on file documented as of this encounter Miscellaneous Notes Telephone Encounter - Lizzy Pennington RN - 08/24/2011 1:48 PM EST Patient called to decrease his ASA to 81mg daily as he had been taking preoperatively. He is workingon his physical therapy, transferring on his left leg and has been generally active. We will d/c the ASA 325mg to 81mg qd. documented in this encounter Plan of Treatment Upcoming Encounters Date Type Specialty Care Team Description 05/26/2022 Office Visit Otolaryngology Ricardo Panda PA [facility] [place], [place] [address] (Wo rk) 06/02/2022 Infusion Hematology and Oncology 06/16/2022 Infusion Hematology and Oncology 06/21/2022 Office Visit Neurology Tyler Rojas MD [facility] Neurology [place], [place] [phone] (Wo rk) 06/30/2022 Infusion Hematology and Oncology 07/14/2022 Infusion Hematology and Oncology 07/28/2022 Infusion Hematology and Oncology 08/11/2022 Infusion Hematology and Oncology 11/04/2022 Office Visit Rheumatology Dante Freedman PA [facility] RHEUMATOLOGY [place], [place] [address] (Wo rk) documented as of this encounter Visit Diagnoses Diagnosis S/P BKA (below knee amputation) - right lower extremity - Primary Lower limb amputation, below knee documented in this encounter Care Teams Shoe Fitter Relationship Specialty Start Date End Date Candido Jenkins MD PCP - General 05/20/11 04/01/13 [address] [place] [address] documented as of this encounter
--- OUTSIDE RECORDS SUMMARY | 2022-05-24 11:00 | XMS_ITS | Encounter Summary ---
:1955 Author Organization [facility] Address [facility] [place] [address] Care Team Providers Name Role Phone Candido Jenkins MD Primary Care Provider Reason for Visit Reason Onset Date Comments Medication Refill 08/23/2011 Encounter Details Date Type Department Care Team Description 08/23/[address] [facility] Angel Boyd MD Tremor, essential [facility] (Pr imary Dx) [place] [address] NEUROLOGY DEPT. [phone] [place], [place] [address] (Wo rk) Social History Tobacco Use Types Packs/Day Years Used Date Former Smoker Cigarettes 2 20 Quit: 01/19/19 93 Smokeless Tobacco: Never Used Alcohol Use Standard Drinks/Week Comments No 0 (1 standard drink = 0.6 oz pure alcoho l) Sex Assigned at Date Recorded Not on file documented as of this encounter Miscellaneous Notes Telephone Encounter - Yolanda Camara RN - 08/23/2011 5:33 PM EST refill documented in this encounter Plan of Treatment Upcoming Encounters Date Type Specialty Care Team Description 05/26/2022 Office Visit Otolaryngology Ricardo Panda PA [facility] er [address] [place], [place] [address] (Wo rk) 06/02/2022 Infusion Hematology and Oncology 06/16/2022 Infusion Hematology and Oncology 06/21/2022 Office Visit Neurology Tyler Rojas MD [facility] er Neurology [place], [place] [phone] (Wo rk) 06/30/2022 Infusion Hematology and Oncology 07/14/2022 Infusion Hematology and Oncology 07/28/2022 Infusion Hematology and Oncology 08/11/2022 Infusion Hematology and Oncology 11/04/2022 Office Visit Rheumatology Dante Freedman PA [facility] RHEUMATOLOGY [place], [place] [address] (Wo rk) documented as of this encounter Visit Diagnoses Diagnosis Tremor, essential - Primary Essential and other specified forms of t remor documented in this encounter Care Teams Personal Fitness Manager Relationship Specialty Start Date End Date Candido Jenkins MD PCP - General 05/20/11 04/01/13 [address] [place] [address] documented as of this encounter
--- OUTSIDE RECORDS SUMMARY | 2022-05-24 11:01 | XMS_ITS | Encounter Summary ---
:1955 Author Organization [facility] [place] [address] Care Team Providers Name Role Phone Candido Jenkins MD Primary Care Provider Encounter Details Date Type Department Care Team Description 06/04/2011 Clinical [place] [address] Social History Tobacco Use Types Packs/Day [...] Taken Comments Blood Pressure - - Pulse 63 06/04/2011 11:00 AM EST Temperature - - Respiratory Rate - - Oxygen Saturation 96% 06/04/2011 11:00 AM EST Inhaled Oxygen Concentration - - Weight 142.4 kg (314 lb) 06/04/2011 11:00 AM EST Height 172.7 cm (5' 8) 06/04/2011 11:00 AM EST Body Mass Index 47.74 06/04/2011 11:00 AM EST documented in this encounter Progress Notes Keerthi Velasquez RN - 06/04/2011 1:04 PM EST Preadmission testing - PAT questionnaire reviewed with patient and family here in PAT. Patient states answered anesthesia allergy reaction incorrectly. He states having a history of IDDM, asthma and GERD. He had a kidney transplant done here at [facility] in 2007, and is no longer on dialysis. Advanced directive information booklet given to patient. Lab work drawn as ordered. documented in this encounter Miscellaneous Notes Miscellaneous - Ezequiel Manager Machine - 06/08/2011 2:47 PM EST documented in this encounter Plan of Treatment Upcoming Encounters Date Type Specialty Care Team Description 05/26/2022 Office Visit Otolaryngology Ricardo Panda PA [facility] [place] [address] (Wo rk) 06/02/2022 Infusion Hematology and Oncology 06/16/2022 Infusion Hematology and Oncology 06/21/2022 Office Visit Neurology Tyler Rojas MD [facility] Neurology [place], [place] [phone] (Wo rk) 06/30/2022 Infusion Hematology and Oncology 07/14/2022 Infusion Hematology and Oncology 07/28/2022 Infusion Hematology and Oncology 08/11/2022 Infusion Hematology and Oncology 11/04/2022 Office Visit Rheumatology Dante Freedman PA [facility] RHEUMATOLOGY [place], [place] [address] (Wo rk) documented as of this encounter Visit Diagnoses Not on filedocumented in this encounter Care Teams Leak Hunter Relationship Specialty Start Date End Date Candido Jenkins MD PCP - General 05/20/11 04/01/13 [address] [place] [address] documented as of this encounter
--- OUTSIDE RECORDS SUMMARY | 2022-05-24 11:01 | XMS_ITS | Encounter Summary ---
:1955 Author Organization [facility] [place] [address] Care Team Providers Name Role Phone Suhas Chowdhury MD Primary Care Provider Reason for Visit Reason Onset Date Comments Medication Refill 02/25/2011 Encounter Details Date Type Department Care Team Description 02/25/2011 [facility] [place] [place] Hypercholesteremia; [facility] HTN (hypertension) [facility] [place] [address] TRANSPLANT SURGERY [phone] [place], [place] [address] (Wo rk) Social History Tobacco Use Types Packs/Day Years Used Date Former Smoker Cigarettes 2 Quit: 01/19/19 93 Smokeless Tobacco: Never Used Alcohol Use Standard Drinks/Week Comments Not Asked 0 (1 standard drink = 0.6 oz pure alcoho l) Sex Assigned at Date Recorded Not on file documented as of this encounter Plan of Treatment Upcoming Encounters Date Type Specialty Care Team Description 05/26/2022 Office Visit Otolaryngology Ricardo Panda PA [facility] [address] [place] [address] (Wo rk) 06/02/2022 Infusion Hematology and Oncology 06/16/2022 Infusion Hematology and Oncology 06/21/2022 Office Visit Neurology Tyler Rojas MD [facility] Dr [place]i [place] [address] (Wo rk) 06/30/2022 Infusion Hematology and Oncology 07/14/2022 Infusion Hematology and Oncology 07/28/2022 Infusion Hematology and Oncology 08/11/2022 Infusion Hematology and Oncology 11/04/2022 Office Visit Rheumatology Dante Freedman PA [facility] RHEUMATOLOGY [place], [place] [address] (Wo rk) documented as of this encounter Visit Diagnoses Diagnosis Hypercholesteremia Pure hypercholesterolemia HTN (hypertension) Unspecified essential hypertension documented in this encounter Care Teams Chief Architect Relationship Specialty Start Date End Date Suhas Chowdhury MD PCP - General 06/16/10 05/19/[address] [place] [address] documented as of this encounter
--- OUTSIDE RECORDS SUMMARY | 2022-05-24 11:01 | XMS_ITS | Encounter Summary ---
:1955 Author Organization [facility] [place] [address] Care Team Providers Name Role Phone Suhas Chowdhury MD Primary Care Provider Encounter Details Date Type Department Care Team Description 10/20/2010 Follow-Up Orthopaedics at [facility]IC, [place] [address] Social History Tobacco Use Types Packs/Day Years Used Date Never Assessed Sex Assigned at Date Recorded Not on file documented as of this encounter Plan of Treatment Upcoming Encounters Date Type Specialty Care Team Description 05/26/2022 Office Visit Otolaryngology Ricardo Panda PA [facility] [place], [place] [address] (Wo rk) 06/02/2022 Infusion Hematology and Oncology 06/16/2022 Infusion Hematology and Oncology 06/21/2022 Office Visit Neurology Tyler Rojas MD [facility] Neurology [place], [place] [phone] (Wo rk) 06/30/2022 Infusion Hematology and Oncology 07/14/2022 Infusion Hematology and Oncology 07/28/2022 Infusion Hematology and Oncology 08/11/2022 Infusion Hematology and Oncology 11/04/2022 Office Visit Rheumatology Dante Freedman PA [facility] RHEUMATOLOGY [place], [place] [address] (Wo rk) documented as of this encounter Visit Diagnoses Not on filedocumented in this encounter Care Teams Head Nurse Relationship Specialty Start Date End Date Suhas Chowdhury MD PCP - General 06/16/10 05/19/[address] [place] [address] documented as of this encounter
--- OUTSIDE RECORDS SUMMARY | 2022-05-24 11:01 | XMS_ITS | Encounter Summary ---
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 Diabetes mellitus with neuropathy [250.60DQ] 02/16/2011 Charcot's arthropathy, diabetic, R [250.60HA] 02/16/2011 Amputated below knee [] 08/02/2006 Last X-ray: 04-26-11 Today Subjective: I want to talk to Dr. Roy today about the surgery to fix the bump. I know the wound is getting a bit better I hope it is good enough. Objective: Patient arrived to clinic in a wheelchair accompanied by his mother and sister.The cast last applied is clean and dry. The medial malleolar ulcer continues superficial and measures 16mm x 16mm x 0mm. The wound edges are soft, moist and thickly callused again today. The wound bed is full of healthy granulation.There is no redness or warmth noted. Leg swelling continues to improve. Procedure: Wound washed with Hibiclenz, rinsed with nss and dried thoroughly. The periwound callus was pared using sterile forceps and #17 blade.The wound was dressed with Iodosorb (to try and dry the edges)and covered with Mepilex Lite. He was then placed back into a total contact cast. Patient discussed amputation vs debridement of the bony prominence and possible complications with either surgery with Dr. Roy today. He is considering his options and will follow up at his next appointment. Plan: He will call us with any fever, calf pain or constitutional problems. We will recheck the wound in [address] Roy supervised this visit documented in this encounter Plan of Treatment Upcoming Encounters Date Type Specialty Care Team Description 05/26/2022 Office Visit Otolaryngology Ricardo Panda PA [facility] Dr [place], [place] [address] ( gregg) 06/02/2022 Infusion Hematology and Oncology 06/16/2022 Infusion Hematology and Oncology 06/21/2022 Office Visit Neurology Tyler Rojas MD [facility] Neurology [place], [place] [phone] (Wo rk) 06/30/2022 Infusion Hematology and Oncology 07/14/2022 Infusion Hematology and Oncology 07/28/2022 Infusion Hematology and Oncology 08/11/2022 Infusion Hematology and Oncology 11/04/2022 Office Visit Rheumatology Dante Freedman PA [facility] RHEUMATOLOGY [place], [place] [address] ( gregg) documented as of this encounter Results XR ankle minimum 3 views (04/26/2011 10:50 AM EDT) Anatomical Region Laterality Modality Ankle N/A Radiographic Imaging Specimen (Source) Anatomical Collection Method Collection Time Re ceived Time Location / / Volume Laterality 04/26/2011 10:50 AM EDT Impressions 04/27/2011 8:14 AM EDT IMPRESSION: 1. ??Progression of neurarthropathy of t he ankle joint with completely fragmented and disappeared talus. 2. 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 3. ??Severe hallux valgus. Narrative 04/27/2011 8:14 AM EDT RIGHT ANKLE, THREE VIEWS: HISTORY: ??Charcot arthropathy. COMPARISON STUDY: ??2006. FINDINGS: ??Progression of neurarthropat hy with completely fragmented talus. ?? The tibial plafond now reaches the calca neus. ??The bone mineralization around the ankle is maintained with subchondral cystic change and subchondral sclerosis. ??There is heel valgus deform ity and diffuse soft tissue swelling. Procedure Note Anika Michele MD - 04/27/2011Formatt ing of this note might be different from the original. RIGHT ANKLE, THREE VIEWS: HISTORY: Charcot arthropathy. COMPARISON STUDY: 2006. FINDINGS: Progression of neurarthropathy with completely fragmented talus. The tibial plafond now reaches the calca neus. The bone mineralization around the ankle is maintained with subchondral cystic change and subchondral sclerosis. There is heel valgus deformit y and diffuse soft tissue swelling. IMPRESSION IMPRESSION: 1. Progression of neurarthropathy of the ankle joint with completely fragmented and disappeared talus. 2. Proximal migration of the tibia with tibial plafond now reaching calcaneus. 3. Severe hallux valgus. Narayan Roy Jr., MD IMG DX ORDERABLES documented in this encounter Visit Diagnoses Diagnosis Charcot's arthropathy, diabetic, R - Steff krystal Type II or unspecified type diabetes fredo litus with neurological manifestations, not stated as uncontrolled 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 Type II or unspecified type diabetes fredo litus with renal manifestations, not stated as uncontrolled Open wound of right ankle Open wound of knee, leg (except thigh), and ankle, without mention of complication Charcot's arthropathy, diabetic Type II or unspecified type diabetes fredo litus with neurological manifestations, not stated as uncontrolled documented in this encounter Care Teams Certified Professional Coder Relationship Specialty Start Date End Date Suhas Chowdhury MD PCP - General 06/16/10 05/19/[address] [place] [address] documented as of this encounter
--- OUTSIDE RECORDS SUMMARY | 2022-05-24 11:01 | XMS_ITS | Encounter Summary ---
:1955 Author Organization [facility] [place] [place] [address] Care Team Providers Name Role Phone Suhas Chowdhury MD Primary Care Provider Reason for Visit Reason Comments Right Foot Pain mall right /left amp.dm Encounter Details Date Type Department Care Team Description 02/16/2011 Follow-Up Orthopaedics at [facility], DR FOSTER Diabetes mellitus with neuro mendy; [facility] Narayan Roy Jr., MD [facility] [place] [address] Charcot's arthropathy, diabetic, [place] [address] Social History Tobacco Use Types Packs/Day Years Used Date Former Smoker Cigarettes 2 Quit: 01/19/19 93 Smokeless Tobacco: Never Used Alcohol Use Standard Drinks/Week Comments Not Asked 0 (1 standard drink = 0.6 oz pure alcoho l) Sex Assigned at Date Recorded Not on file documented as of this encounter Last Filed Vital Signs Vital Sign Reading Time Taken Comments Blood Pressure 120/60 02/16/2011 9:34 AM EDT Pulse - - Temperature - - Respiratory Rate - - Oxygen Saturation - - Inhaled Oxygen Concentration - - Weight - - Height - - Body Mass Index - - documented in this encounter Progress Notes Narayan Roy Jr., MD - 02/16/2011 10:52 AM EDT Patient Active Problem List Diagnoses Date Noted ??? Diabetes mellitus with neuropathy [250.60DQ] 02/16/2011 ??? Charcot's arthropathy, diabetic, R [250.60HA] 02/16/2011 ??? CIS - Amputated below knee [] 08/02/2006 ??? CIS - Diabetes mellitus, adult onset, with renal manifestation [] 08/02/2006 ??? CIS - End stage renal disease [] 08/02/2006 PROBLEM: Charcot deformity, right foot; diabetic neuropathy status post left below-knee amputation. HISTORY: Mr. Leroy Rojas is following up. He has had venous stasis ulcers recently. They have cleared. He has been using supportive socks. He is using a [place] walker boot that has been conformed for him, has a large lateral wedge, and has had removal of a portion of the boot laterally where the fibula head which is prominent was rubbing. He was fine and at last visit on 01/26 everything was healed up and doing well. He tried these new compressive socks to try and help keep control on his leg and while it did not break down his skin, the chafing of the sock against the lateral side of his foot created a 1 x 1 cm ulcer with a blister that raised skin 2 x 2 cm. The skin is still intact on the peripheral centimeter of the injury, but the deep injury is in the subcu in the center of the wound. We cleansed it with Hibiclens today. It is very superficial. He does have a tendency of posterior tib spasticity and pressure and goes into a varus positioning and it can be corrected. I reviewed his findings with Dr. Montez and we will plan to put him in a total contact cast, change it in a week, and replacing the leave-in pad. He should be gradually healing by that point. He would likely be another two to three weeks of casting and we may want to consider lengthening his posterior tibial tendon in order to improve his braceability in his [place] walker boot. I think this is contributing deforming force that might help him avoid further ulceration. He does have pulses intact. His hemoglobin A1c will be obtained tomorrow, last was 8. His blood sugar today was 223, but he says that is within his normal range. We will set him up to come back in a week for cast change and wound check. [id number] ulcer treated with bactroban and mepilex post debriding edges. All toes on R foot with thickened nails and all trimmed to prevent pressure. F/u in 1 week for cast change and dressing change. Likely cast for 4 weeks and consider post tib lengthening. documented in this encounter Plan of Treatment Upcoming Encounters Date Type Specialty Care Team Description 05/26/2022 Office Visit Otolaryngology Ricardo Panda PA [facility] Dr [place], [place] [address] (Wo rk) 06/02/2022 Infusion Hematology and Oncology 06/16/2022 Infusion Hematology and Oncology 06/21/2022 Office Visit Neurology Tyler Rojas MD [facility] Neurology [place], [place] [phone] (Wo rk) 06/30/2022 Infusion Hematology and Oncology 07/14/2022 Infusion Hematology and Oncology 07/28/2022 Infusion Hematology and Oncology 08/11/2022 Infusion Hematology and Oncology 11/04/2022 Office Visit Rheumatology Dante Freedman PA [facility] RHEUMATOLOGY [place], [place] [address] (Wo rk) documented as of this encounter Visit Diagnoses Diagnosis Charcot's arthropathy, diabetic, R Type II or unspecified type diabetes fredo litus with neurological manifestations, not stated as uncontrolled documented in this encounter Care Teams Animal Nutritionist Relationship Specialty Start Date End Date Suhas Chowdhury MD PCP - General 06/16/10 05/19/11 [address] [place] [address] documented as of this encounter
--- OUTSIDE RECORDS SUMMARY | 2022-05-24 11:01 | XMS_ITS | Encounter Summary ---
:1955 Author Organization [facility] [place] [address] Care Team Providers Name Role Phone Suhas Chowdhury MD Primary Care Provider Reason for Visit Reason Onset Date Comments Kidney Transplant Follow-up 04/14/2011 Encounter Details Date Type Department Care Team Description 04/14/2011 Refill Solid Organ Transplant Karen Chino, Transplant kidney at [facility] [employer] (Primary Dx) [place] [address] TRANSPLANT SURGERY [phone] [place] [id number] (Wo rk) Social History Tobacco Use Types Packs/Day Years Used Date Former Smoker Cigarettes 2 20 Quit: 01/19/19 93 Smokeless Tobacco: Never Used Alcohol Use Standard Drinks/Week Comments No 0 (1 standard drink = 0.6 oz pure alcoho l) Sex Assigned at Date Recorded Not on file documented as of this encounter Miscellaneous Notes Telephone Encounter - Yessenia Peralta LPN - 04/14/2011 3:26 PM EDT Notes Recorded by Karen Chino APRN on 04/05/2011 at 3:52 PM Ramos Salamanca, Can you please call Leroy Torres and let him know that his Vitamin D level is slightly low. I would recommend that he start taking Vitamin D3 (1,000 IU) once daily in addition to the multivitamin that he is taking. Thank you, Karen ...... Received message above from Karen regarding her recommendation for Mr Torres to take vitamin D3. I called Mr Torres, and let him know that based on his recent vitamin D studies as part of his blood work, they showed him to be deficient. I instructed him to get the vitamin D3 1000 IU, and take it once daily. Patient verbalized understanding, and was in agreement with this plan. documented in this encounter Plan of Treatment Upcoming Encounters Date Type Specialty Care Team Description 05/26/2022 Office Visit Otolaryngology Ricardo Panda PA [facility] Dr [place], [place] [address] (Wo rk) 06/02/2022 Infusion Hematology and Oncology 06/16/2022 Infusion Hematology and Oncology 06/21/2022 Office Visit Neurology Tyler Rojas MD [facility] Neurology [place], [place] [phone] (Wo rk) 06/30/2022 Infusion Hematology and Oncology 07/14/2022 Infusion Hematology and Oncology 07/28/2022 Infusion Hematology and Oncology 08/11/2022 Infusion Hematology and Oncology 11/04/2022 Office Visit Rheumatology Dante Freedman PA [facility] RHEUMATOLOGY [place], [place] [address] (Wo rk) documented as of this encounter Visit Diagnoses Diagnosis Transplant kidney - Primary Kidney replaced by transplant documented in this encounter Care Teams Archeologist Classical Relationship Specialty Start Date End Date Suhas Chowdhury MD PCP - General 06/16/10 05/19/11 [address] [place] [address] documented as of this encounter
--- OUTSIDE RECORDS SUMMARY | 2022-05-24 11:01 | XMS_ITS | Encounter Summary ---
:1955 Author Organization [place] [address] Care Team Providers Name Role Phone Candido Jenkins MD Primary Care Provider Encounter Details Date Type Department Care Team Description 05/28/2011 [place]ed[facility] [place] [facility] DR CRISTIAN Roblero's arthropathy, diabe tatiana, R; [facility] D [place] [address] Social History Tobacco Use Types Packs/Day Years Used Date Former Smoker Cigarettes 2 20 Quit: 01/19/19 93 Smokeless Tobacco: Never Used Alcohol Use Standard Drinks/Week Comments No 0 (1 standard drink = 0.6 oz pure alcoho l) Sex Assigned at Date Recorded Not on file documented as of this encounter Progress Notes Lizzy Pennington RN - 05/28/2011 11:25 AM EDT LOWER EXTREMITY NURSE VISIT Problem: Diabetic male with Charcot arthropathy, right malleolar ulceration and new thumb puncture wound. Last X-ray: Ankle 04-26-11 Subjective: I have decided to go ahead with the amputation I will talk to Dr. Roy about it when he comes in today. Objective: Patient arrived to clinic in a wheelchair accompanied by his mother and sister.The cast last applied is clean and dry. The medial malleolar ulcer continues superficial and measures 17mm x 13mm x 0mm. The wound edges are soft, moist thick and without callus. The wound bed is full of healthy g ranulation.There is no redness or warmth noted. The right 5th digit wound noted at his last visit has epithelialized and is thinly callused. There is no erythema or drainage. There is a 3mm superficialscrape over the great toe. This site is clean- no erythema. Procedure: Ankle,wound washed with Hibiclenz, rinsed with nss and dried thoroughly. The ankle wound was dressed with Iodosorb and covered with Mepilex. He was then placed back into a total contact cast. Plan: We will recheck the wounds in 1 week. He will have his [place] walker reconfigured to accomadate the ulcer- We plan to take him out of the cast so he can wash the leg daily for the week preceding surgery. He will be able to wear the boot for ambulation. Dr. Roysupervised this visit documented in this encounter Plan of Treatment Upcoming Encounters Date Type Specialty Care Team Description 05/26/2022 Office Visit Otolaryngology Ricardo Panda PA [facility] [address] [place], [place] [address] (Wo rk) 06/02/2022 Infusion Hematology and Oncology 06/16/2022 Infusion Hematology and Oncology 06/21/2022 Office Visit Neurology Tyler Rojas MD [facility] Neurology [place], [place] [phone] (Wo rk) 06/30/2022 Infusion Hematology and Oncology 07/14/2022 Infusion Hematology and Oncology 07/28/2022 Infusion Hematology and Oncology 08/11/2022 Infusion Hematology and Oncology 11/04/2022 Office Visit Rheumatology Dante Freedman PA [facility] RHEUMATOLOGY [place], [place] [address] (Wo rk) documented as of this encounter Visit Diagnoses Diagnosis Charcot's arthropathy, diabetic, R Type II or unspecified type diabetes fredo litus with neurological manifestations, not stated as uncontrolled Open wound of right ankle Open wound of knee, leg (except thigh), and ankle, without mention of complication documented in this encounter Care Teams Abrading Machine Tender Relationship Specialty Start Date End Date Candido Jenkins MD PCP - General 05/20/11 04/01/13 [address] [place] [address] documented as of this encounter
--- OUTSIDE RECORDS SUMMARY | 2022-05-24 11:01 | XMS_ITS | Encounter Summary ---
:1955 Author Organization [place] [address] Care Team Providers Name Role Phone Suhas Chowdhury MD Primary Care Provider Reason for Visit Reason Onset Date Comments Medication Refill 03/24/2011 Encounter Details Date Type Department Care Team Description 03/24/2011 Refill Solid Organ Transplant at [facility], HTN (hypertension); [facility] Hypercholesteremia [facility] [place] [address] TRANSPLANT SURGERY [phone] [place], [place] [address] (Wo rk) Social History Tobacco [...] Ricardo Panda PA [facility] Dr [place] [address] (Wo rk) 06/02/2022 Infusion Hematology and Oncology 06/16/2022 Infusion Hematology and Oncology 06/21/2022 Office Visit Neurology Tyler Rojas MD [facility] Dr Sofi [place] [address] (Wo rk) 06/30/2022 Infusion Hematology and Oncology 07/14/2022 Infusion Hematology and Oncology 07/28/2022 Infusion Hematology and Oncology 08/11/2022 Infusion Hematology and Oncology 11/04/2022 Office Visit Rheumatology Dante Freedman PA [facility] RHEUMATOLOGY [place], [place] [address] (Wo rk) documented as of this encounter Visit Diagnoses Diagnosis HTN (hypertension) Unspecified essential hypertension Hypercholesteremia Pure hypercholesterolemia documented in this encounter Care Teams Transportation Lead Relationship Specialty Start Date End Date Suhas Chowdhury MD PCP - General 06/16/10 05/19/11 [address] [place] [address] documented as of this encounter
--- OUTSIDE RECORDS SUMMARY | 2022-05-24 11:01 | XMS_ITS | Encounter Summary ---
:1955 Author Organization [facility] [place] [address] Care Team Providers Name Role Phone Candido Jenkins MD Primary Care Provider Encounter Details Date Type Department Care Team Description 06/04/2011 Orders Only Orthopaedics at [facility] Narayan Roy Open wound of right ankle; [facility] MD Raúl Alex, below knee; Drive [facility] Diabetes mellitus [place] [address] ORTHOPAEDIC SURGERY [place], [place] [address] Social History Tobacco Use [...] Panda PA [facility] Dr [place], [place] [address] (Wo rk) 06/02/2022 Infusion Hematology and Oncology 06/16/2022 Infusion Hematology and Oncology 06/21/2022 Office Visit Neurology Tyler Rojas MD [facility] Dr Farah [place], [place] [phone] (Wo rk) 06/30/2022 Infusion Hematology and Oncology 07/14/2022 Infusion Hematology and Oncology 07/28/2022 Infusion Hematology and Oncology 08/11/2022 Infusion Hematology and Oncology 11/04/2022 Office Visit Rheumatology Dante Freedman PA [facility] RHEUMATOLOGY [place], [place] [address] (Wo rk) documented as of this encounter Procedures Procedure Name Priority Date/Time Associated Diagnosis Comme nts AMPUTATION, Routine 06/04/2011 12:03 PM Open wound of right BELOW-KNEE, CLOSED EST ankle Diabetes mellitus with neuropathy documented in this encounter Visit Diagnoses Diagnosis Open wound of right ankle Open wound of knee, leg (except thigh), and ankle, without mention of complication Amputee, below knee Lower limb amputation, below knee Diabetes mellitus with neuropathy Type II or unspecified type diabetes fredo litus with neurological manifestations, not stated as uncontrolled documented in this encounter Care Teams Procurement Services Manager Relationship Specialty Start Date End Date Candido Jenkins MD PCP - General 05/20/11 04/01/13 [address] [place] [address] documented as of this encounter
--- OUTSIDE RECORDS SUMMARY | 2022-05-24 11:01 | XMS_ITS | Encounter Summary ---
:1955 Author Organization [facility] [place] [address] Care Team Providers Name Role Phone Suhas Chowdhury MD Primary Care Provider Reason for Visit Reason Comments Foot Ulcer Right foot Encounter Details Date Type Department Care Team Description 04/08/2011 Follow-Up Orthopaedics at [facility], DR CRISTIAN Strange; [facility] Giovana tyler Diabetes mellitus with neuro mendy; [place] [address] Charcot's arthropathy, diabe tic; [phone] Type II diabete s mellitus with renal [...] encounter Progress Notes Lizzy Pennington RN - 04/08/2011 9:55 AM EDT LOWER EXTREMITY NURSE VISIT Problem: left medial malleolar ulceration. Diabetes mellitus with neuropathy [250.60DQ] 02/16/2011 Charcot's arthropathy, diabetic, R [250.60HA] 02/16/2011 Amputated below knee [] 08/02/2006 Subjective: I have been feeling good, my sugars have been around 150 which is good for me. I started a meal plan that seems like I will be able to stick to. I did get the ok from my doctor first. Objective: Patient arrived to clinic in a wheelchair accompanied by his mother and sister.The cast last applied is clean and dry. The medial malleolar ulcer continues superficial and measures 18mm x 14mm x 1mm. The wound edges are soft, moist and lightly callused. The wound bed is full of healthy granulation. There is no redness or warmth noted. Leg swelling continues to improve. Note that the dressing and the Acticoat were off of the wound when the cast was removed. He is and has been afebrile. Blood sugars in general continue higher than optimal but as mentioned above, have been lower than his usual. Procedure: Wound washed with Hibiclenz, rinsed with nss and dried thoroughly. Thin periwound callus was pared using sterile forceps and #17 blade.The wound was dressed with Aquacell Ag (which because it jells may stay in contact with the wound bed better) and covered with Mepilex border. He was then placed back into a total contact cast. Plan: He will call us with any fever, calf pain or constitutional problems. We will recheck the wound in 1 week. documented in this encounter Plan of Treatment Upcoming Encounters Date Type Specialty Care Team Description 05/26/2022 Office Visit Otolaryngology Ricardo Panda PA [facility] Dr [place], [place] [address] ( gregg) 06/02/2022 Infusion Hematology and Oncology 06/16/2022 Infusion Hematology and Oncology 06/21/2022 Office Visit Neurology Tyler Rojas MD [facility] Neurology [place], [place] [address] (Wo rk) 06/30/2022 Infusion Hematology and Oncology 07/14/2022 Infusion Hematology and Oncology 07/28/2022 Infusion Hematology and Oncology 08/11/2022 Infusion Hematology and Oncology 11/04/2022 Office Visit Rheumatology Dante Freedman PA [facility] RHEUMATOLOGY [place], [place] [address] (Oscar escobedo) documented as of this encounter Visit Diagnoses Diagnosis Wound Injury, other and unspecified, unspecifi ed site Charcot's arthropathy, diabetic Type II or unspecified type diabetes fredo litus with neurological manifestations, not stated as uncontrolled 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 Type II or unspecified type diabetes fredo litus with renal manifestations, not stated as uncontrolled documented in this encounter Care Teams Vp Compliance Relationship Specialty Start Date End Date Suhas Chowdhury MD PCP - General 06/16/10 05/19/[address] [place] [address] documented as of this encounter
--- OUTSIDE RECORDS SUMMARY | 2022-05-24 11:01 | XMS_ITS | Encounter Summary ---
:1955 Author Organization [facility] [place] [address] Care Team Providers Name Role Phone Suhas Chowdhury MD Primary Care Provider Reason for Visit Reason Comments Wound Check Encounter Details Date Type Department Care Team Description 03/25/2011 Follow-Up [facility] [place] [facility], DR CRISTIAN Olsen, below knee; [facility] Giovana tyler Charcot's arthropathy, diabe tatiana, R; [place] [address] Diabetes mellitus with neuro mendy; [phone] Wound Social History Tobacco Use Types Packs/Day Years Used Date Former Smoker Cigarettes 2 Quit: 01/19/19 93 Smokeless Tobacco: Never Used Alcohol Use Standard Drinks/Week Comments Not Asked 0 (1 standard drink = 0.6 oz pure alcoho l) Sex Assigned at Date Recorded Not on file documented as of this encounter Progress Notes Lizzy Pennington RN - 03/25/2011 4:11 PM EDT LOWER EXTREMITY NURSE VISIT Problem: left medial malleolar ulceration. ??? Diabetes mellitus with neuropathy [250.60DQ] 02/16/2011 ??? Charcot's arthropathy, diabetic, R [250.60HA] 02/16/2011 ??? CIS - Amputated below knee [] 08/02/2006 Subjective: I hope it is better again, that's the news I want. Objective: Patient arrived to clinic in a wheelchair accompanied by his mother and sister.The cast last applied is clean and dry. The medial malleolar ulcer continues superficial and measures 9mm x 15mm x 0mm. The wound edges are lightly macerated. The wound bed is full of healthy granulation. There is no redness or warmth noted. Leg swelling continues to improve. He is and has been afebrile. Blood sugars in general continue higher than optimal and he continues high cho and fat diet. Procedure: Wound washed with Hibiclenz, rinsed with nss and dried thoroughly. The wound was dressed with Acticoat and covered with Mepilex border. He was then placed back into a total contact cast. Plan: He will call us with any fever, calf pain or constitutional problems. We will recheck the wound in 1 week. documented in this encounter Plan of Treatment Upcoming Encounters Date Type Specialty Care Team Description 05/26/2022 Office Visit Otolaryngology Ricardo Panda PA [facility] Dr [place], [place] [address] (Wo rk) 06/02/2022 Infusion Hematology and Oncology 06/16/2022 Infusion Hematology and Oncology 06/21/2022 Office Visit Neurology Tyler Rojas MD [facility] Neurology [place], [place] [address] (Wo rk) 06/30/2022 Infusion Hematology and Oncology 07/14/2022 Infusion Hematology and Oncology 07/28/2022 Infusion Hematology and Oncology 08/11/2022 Infusion Hematology and Oncology 11/04/2022 Office Visit Rheumatology Dante Freedman PA [facility] RHEUMATOLOGY [place], [place] [address] (Wo rk) documented as of this encounter Visit Diagnoses Diagnosis Amputee, below knee Lower limb amputation, below knee Charcot's arthropathy, diabetic, R Type II or unspecified type diabetes fredo litus with neurological manifestations, not stated as uncontrolled Wound Injury, other and unspecified, unspecifi ed site documented in this encounter Care Teams Virtual Recruiter Relationship Specialty Start Date End Date Suhas Chowdhury MD PCP - General 06/16/10 05/19/11 [address] [place] [address] documented as of this encounter
--- OUTSIDE RECORDS SUMMARY | 2022-05-24 11:01 | XMS_ITS | Encounter Summary ---
:1955 Author Organization [facility] [place] [address] Care Team Providers Name Role Phone Candido Jenkins MD Primary Care Provider Reason for Visit Reason Comments Wound Check Right foot Encounter Details Date Type Department Care Team Description 05/20/2011 Follow-Up Orthopaedics at [facility], DR CRISTIAN Roblero's arthropathy, diabe [facility], R; [facility] Giovana tyler Diabetes mellitus with neuro mendy; [place] [address] Open wound of right ankle [phone] Social History Tobacco Use Types Packs/Day Years Used Date Former Smoker Cigarettes 2 20 Quit: 01/19/19 93 Smokeless Tobacco: Never Used Alcohol Use Standard Drinks/Week Comments No 0 (1 standard drink = 0.6 oz pure alcoho l) Sex Assigned at Date Recorded Not on file documented as of this encounter Progress Notes Lizzy Pennington RN - 05/20/2011 2:21 PM EDT LOWER EXTREMITY NURSE VISIT Problem: Diabetic male with Charcot arthropathy, right malleolar ulceration and new thumb puncture wound. Last X-ray: Ankle 04-26-11 Subjective: I want to talk with Dr. Roy about the amputation next visit. I think I am ready. My finger has gotten all better, no pain, no puss. Objective: Patient arrived to clinic in a wheelchair accompanied by his mother and sister.The cast last applied is clean and dry. The medial malleolar ulcer continues superficial and measures 17mm x 14mm x 0mm. The wound edges are soft, moist and without callus today. The wound bed is full of healthy g ranulation.There is no redness or warmth noted. The right 5th digit wound noted at his last visit has epithelialized. There is no erythema or drainage. Procedure: Ankle,wound washed with Hibiclenz, rinsed with nss and dried thoroughly. The ankle wound was dressed with Acticoat then Iodosorb and covered with Mepilex. He was then placed back into a total contact cast. Plan: We will recheck the wounds in [address] Bergman supervised this visit documented in this encounter Plan of Treatment Upcoming Encounters Date Type Specialty Care Team Description 05/26/2022 Office Visit Otolaryngology Ricardo Panda PA [facility] Dr [place], [place] [address] (Wo rk) 06/02/2022 Infusion Hematology and Oncology 06/16/2022 Infusion Hematology and Oncology 06/21/2022 Office Visit Neurology Tyler Rojas MD [facility] Neurology [place], [place] [address] (Wo rk) 06/30/2022 Infusion Hematology and Oncology 07/14/2022 Infusion Hematology and Oncology 07/28/2022 Infusion Hematology and Oncology 08/11/2022 Infusion Hematology and Oncology 11/04/2022 Office Visit Rheumatology Dante Freedman PA [facility] RHEUMATOLOGY [place], [place] [address] (Wo rk) documented as of this encounter Visit Diagnoses Diagnosis Charcot's arthropathy, diabetic, R Type II or unspecified type diabetes fredo litus with neurological manifestations, not stated as uncontrolled Open wound of right ankle Open wound of knee, leg (except thigh), and ankle, without mention of complication documented in this encounter Care Teams Oxygen Equipment Technician Relationship Specialty Start Date End Date Candido Jenkins MD PCP - General 05/20/11 04/01/13 [address] [place] [address] (work) documented as of this encounter
--- OUTSIDE RECORDS SUMMARY | 2022-05-24 11:01 | XMS_ITS | Encounter Summary ---
:1955 Author Organization [facility] [place] [address] Care Team Providers Name Role Phone Suhas Chowdhury MD Primary Care Provider Encounter Details Date Type Department Care Team Description 03/26/2011 Abstract Neurology at [facility] Angel Boyd MD [facility] [place] [address] NEUROLOGY DEPT. [phone] [place], [place] [address] (Wo rk) Social History Tobacco [...] PA [facility] Dr [place] [address] (Wo rk) 06/02/2022 Infusion Hematology and Oncology 06/16/2022 Infusion Hematology and Oncology 06/21/2022 Office Visit Neurology Tyler Rojas MD [facility] Dr [place], [place] [address] (Wo rk) 06/30/2022 Infusion Hematology and Oncology 07/14/2022 Infusion Hematology and Oncology 07/28/2022 Infusion Hematology and Oncology 08/11/2022 Infusion Hematology and Oncology 11/04/2022 Office Visit Rheumatology Dante Freedman PA [facility] RHEUMATOLOGY [place], [place] [address] (Wo rk) documented as of this encounter Visit Diagnoses Not on filedocumented in this encounter Care Teams Staining Machine Operator Relationship Specialty Start Date End Date Suhas Chowdhury MD PCP - General 06/16/10 05/19/11 [address] [place] [address] documented as of this encounter
--- OUTSIDE RECORDS SUMMARY | 2022-05-24 11:01 | XMS_ITS | Encounter Summary ---
:1955 Author Organization [facility] [place] [address] Care Team Providers Name Role Phone Suhas Chowdhury MD Primary Care Provider Reason for Visit Reason Comments Wound Check RT foot ulcer Encounter Details Date Type Department Care Team Description 04/16/2011 Follow-Up Orthopaedics [place] [facility], DR CRISTIAN Roblero's arthropathy, diabe tic, R; [facility] D rive Diabetes mellitus with neuro mendy; [place] [address] Type II diabetes mellitus wi th renal manifestations; [phone] Wound Social History Tobacco Use Types Packs/Day Years Used Date Former Smoker Cigarettes 2 20 Quit: 01/19/19 93 Smokeless Tobacco: Never Used Alcohol Use Standard Drinks/Week Comments No 0 (1 standard drink = 0.6 oz pure alcoho l) Sex Assigned at Date Recorded Not on file documented as of this encounter Progress Notes Lizzy Pennington RN - 04/16/2011 9:51 AM EDT LOWER EXTREMITY NURSE VISIT Problem: left medial malleolar ulceration. Diabetes mellitus with neuropathy [250.60DQ] 02/16/2011 Charcot's arthropathy, diabetic, R [250.60HA] 02/16/2011 Amputated below knee [] 08/02/2006 Subjective: I have been feeling good, my sugars have been around 140 now in the morning which is so good for me.good for me. I'm still on a meal plan that I arabic professor finally deal with and it works. Objective: Patient arrived to clinic in a wheelchair accompanied by his mother and sister.The cast last applied is clean and dry. The medial malleolar ulcer continues superficial and measures 18mm x 15mm x 0mm. The wound edges are soft, moist and thickly callused. The wound bed is full of healthy granulation and it has filled to the wound edges.There is no redness or warmth noted. Leg swelling continues to improve. Note that the dressing and the Acticoat were off of the wound when the cast was removed again today and there was a bit of increase in the wound width. Patient would like to discuss debriding the bony deformity on the lateral malleolus with on of our surgeons at his next visit. Procedure: Wound washed with Hibiclenz, rinsed with nss and dried thoroughly. Thin periwound callus was pared using sterile forceps and #17 blade.The wound was dressed with Acticoat and covered with Mepilex Lite. He was then [...] Panda PA [facility] Dr [place] [address] (Wo rk) 06/02/2022 Infusion Hematology and Oncology 06/16/2022 Infusion Hematology and Oncology 06/21/2022 Office Visit Neurology Tyler Rojas MD [facility] Neurology [place], [place] [phone] (Wo rk) 06/30/2022 Infusion Hematology and Oncology 07/14/2022 Infusion Hematology and Oncology 07/28/2022 Infusion Hematology and Oncology 08/11/2022 Infusion Hematology and Oncology 11/04/2022 Office Visit Rheumatology Dante Freedman PA [facility] RHEUMATOLOGY [place], [place] [address] (Wo rk) documented as of this encounter Visit Diagnoses Diagnosis Charcot's arthropathy, diabetic, R Type II or unspecified type diabetes fredo litus with neurological manifestations, not stated as uncontrolled 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 Type II or unspecified type diabetes fredo litus with renal manifestations, not stated as uncontrolled Wound Injury, other and unspecified, unspecifi ed site documented in this encounter Care Teams Shoer Relationship Specialty Start Date End Date Suhas Chowdhury MD PCP - General 06/16/10 05/19/[address] [place] [address] documented as of this encounter
--- OUTSIDE RECORDS SUMMARY | 2022-05-24 11:01 | XMS_ITS | Encounter Summary ---
:1955 Author Organization [facility] [place] [address] Care Team Providers Name Role Phone Suhas Chowdhury MD Primary Care Provider Reason for Visit Reason Comments Right Foot Pain ulcer Encounter Details Date Type Department Care Team Description 03/02/2011 Follow-Up Orth[facility]edics at [facility], DR FOSTER Diabetic ulcer of ankle [facility] Giovana tyler (Primary Dx) [place] [address] Social History Tobacco Use Types Packs/Day Years Used Date Former Smoker Cigarettes 2 Quit: 01/19/19 93 Smokeless Tobacco: Never Used Alcohol Use Standard Drinks/Week Comments Not Asked 0 (1 standard drink = 0.6 oz pure alcoho l) Sex Assigned at Date Recorded Not on file documented as of this encounter Progress Notes Nikolay Montez MD - 03/02/2011 1:22 PM EDT CLARIFICATION NEEDED: PLEASE FILL IN THE BLANK. DIAGNOSIS: Left below-knee amputation; right Charcot arthropathy with lateral malleolar ulcer. SUBJECTIVE: Mr. Torres returns today. He has been in a total contact cast for his ulcer on the right side. He had no problems with the cast. He reports that his sugar was in the 200 range this morning. OBJECTIVE: Following cast removal today, the ulcer is really unchanged in size. It appears benign. It is 20 x 30 mm in size. There are no depths to it today. He has severe varus angulation of the hindfoot with prominent lateral malleolus. I am unable to palpate pulses. He has no distal sensation. He has good motor function at the knee, but at the ankle, his motor function is limited. ASSESSMENT: Static ulcer healing. PLAN: He will go back to his total contact cast. __1:20___ at the malleolus. We will see him back here in a week to evaluate his progress. documented in this encounter Plan of Treatment Upcoming Encounters Date Type Specialty Care Team Description 05/26/2022 Office Visit Otolaryngology Ricardo Panda PA [facility] [place], [place] [address] (Wo rk) 06/02/2022 Infusion Hematology and Oncology 06/16/2022 Infusion Hematology and Oncology 06/21/2022 Office Visit Neurology Tyler Rojas MD [facility] Neurology [place], [place] [phone] (Wo rk) 06/30/2022 Infusion Hematology and Oncology 07/14/2022 Infusion Hematology and Oncology 07/28/2022 Infusion Hematology and Oncology 08/11/2022 Infusion Hematology and Oncology 11/04/2022 Office Visit Rheumatology Dante Freedman PA [facility] RHEUMATOLOGY [place], [place] [address] (Wo rk) documented as of this encounter Visit Diagnoses Diagnosis Diabetic ulcer of ankle - Primary Type II or unspecified type diabetes fredo litus with other specified manifestations, not stated as uncontrolled documented in this encounter Care Teams Post Commander Relationship Specialty Start Date End Date Suhas Chowdhury MD PCP - General 06/16/10 05/19/11 [address] [place] [address] documented as of this encounter
--- OUTSIDE RECORDS SUMMARY | 2022-05-24 11:01 | XMS_ITS | Encounter Summary ---
:1955 Author Organization [facility] [address] Care Team Providers Name Role Phone Suhas Chowdhury MD Primary Care Provider Reason for Visit Reason Comments Foot Ulcer Encounter Details Date Type Department Care Team Description 01/05/2011 Follow-Up Orthopaedics at [facility], DR FOSTER Venous ulcer of leg [facility] Giovana tyler (Primary Dx) [place] [address] Social History Tobacco Use Types Packs/Day Years Used Date Never Assessed Sex Assigned at Date Recorded Not on file documented as of this encounter Progress Notes Nikolay Montez MD - 01/05/2011 11:35 AM EDT Mr. Torres returns today, he has a below knee amputation on one side and a Charcot arthropathy on the right. He arrives today stating that he has had some breakdown in the skin anteriorly with blistering. He states that it is quite hot inside his boot and he feels that the heat has exacerbated from this previously. His blood sugar this morning was 205. His last hemoglobin A1c was in August and this was 7.9. OBJECTIVE: The foot appears stable. There are hypertrophic nails, one through five with his fungal infection of the first nail. There is obvious evidence of venostasis ulceration and color change anteriorly. There is some paddling and blistering. No sign of infection is noted. ASSESSMENT: Charcot arthropathy right with a new venostasis ulceration and with a history of same. PLAN: I have discussed the situation with the patient. We will treat him with an Unna boot application today. He can use his Unna boot underneath his [place] walker. We will have the visiting nurses come and see him every three or four days for an Unna boot change and he will be seen here in two weeks for a reevaluation. At some point, he may need a prescription for custom compression stockings. documented in this encounter Plan of Treatment Upcoming Encounters Date Type Specialty Care Team Description 05/26/2022 Office Visit Otolaryngology Ricardo Panda PA [facility] [address] [place], [place] [address] (Wo rk) 06/02/2022 Infusion Hematology and Oncology 06/16/2022 Infusion Hematology and Oncology 06/21/2022 Office Visit Neurology Tyler Rojas MD [facility] Neurology [place], [place] [phone] (Wo rk) 06/30/2022 Infusion Hematology and Oncology 07/14/2022 Infusion Hematology and Oncology 07/28/2022 Infusion Hematology and Oncology 08/11/2022 Infusion Hematology and Oncology 11/04/2022 Office Visit Rheumatology Dante Freedman PA [facility] RHEUMATOLOGY [place], [place] [address] (Wo rk) documented as of this encounter Visit Diagnoses Diagnosis Venous ulcer of leg - Primary Varicose veins of lower extremities with ulcer documented in this encounter Care Teams Service Engine Repairer Relationship Specialty Start Date End Date Suhas Chowdhury MD PCP - General 06/16/10 05/19/[address] [place] [address] documented as of this encounter
--- OUTSIDE RECORDS SUMMARY | 2022-05-24 11:01 | XMS_ITS | Encounter Summary ---
:1955 Author Organization [facility] [place] [address] Care Team Providers Name Role Phone Suhas Chowdhury MD Primary Care Provider Reason for Visit Reason Onset Date Comments Other 02/25/2011 [facility] to pt Encounter Details Date Type Department Care Team Description 02/25/2011 Telephone Care Management Dina Pastor Other ([facility]arnold to pt) [place] [address] Social History Tobacco Use Types Packs/Day Years Used Date Former Smoker Cigarettes 2 Quit: 01/19/19 93 Smokeless Tobacco: Never Used Alcohol Use Standard Drinks/Week Comments Not Asked 0 (1 standard drink = 0.6 oz pure alcoho l) Sex Assigned at Date Recorded Not on file documented as of this encounter Miscellaneous Notes Telephone Encounter - Dina Pastor - 02/25/2011 7:46 AM EDT [facility] to pt I spoke to Mr. Torres to confirm that he still needs assistance with Prograf. I called to request the application from [employer] and sent the patient page to Mr. Torres to complete, sign, and return with proof of income and insurance. I sent page [address] application to Dr. Garnett for his signature and prescription. I will follow through with the application once everything is returned to me. documented in this encounter Plan of Treatment Upcoming Encounters Date Type Specialty Care Team Description 05/26/2022 Office Visit Otolaryngology Ricardo Panda PA [facility] [place], [place] [address] (Wo rk) 06/02/2022 Infusion Hematology and Oncology 06/16/2022 Infusion Hematology and Oncology 06/21/2022 Office Visit Neurology Tyler Rojas MD [facility] Neurology [place], [place] [phone] (Wo rk) 06/30/2022 Infusion Hematology and Oncology 07/14/2022 Infusion Hematology and Oncology 07/28/2022 Infusion Hematology and Oncology 08/11/2022 Infusion Hematology and Oncology 11/04/2022 Office Visit Rheumatology Dante Freedman PA [facility] RHEUMATOLOGY [place], [place] [address] (Wo rk) documented as of this encounter Visit Diagnoses Not on filedocumented in this encounter Care Teams Cement Mixer Driver Relationship Specialty Start Date End Date Suhas Chowdhury MD PCP - General 06/16/10 05/19/[address] [place] [address] documented as of this encounter
--- OUTSIDE RECORDS SUMMARY | 2022-05-24 11:01 | XMS_ITS | Encounter Summary ---
:1955 Author Organization [facility] [address] Care Team Providers Name Role Phone Suhas Chowdhury MD Primary Care Provider Reason for Visit Reason Onset Date Comments Medication Refill 02/16/2011 Encounter Details Date Type Department Care Team Description 02/16/2011 Refill [facility], HTN (hypertension); [facility]IC Hypercholesteremia [facility] [place] [address] TRANSPLANT SURGERY [phone] [place], [place] [address] (Wo rk) Social History Tobacco [...] [facility] Dr Sofi [place] [address] (Wo rk) 06/30/2022 Infusion Hematology and Oncology 07/14/2022 Infusion Hematology and Oncology 07/28/2022 Infusion Hematology and Oncology 08/11/2022 Infusion Hematology and Oncology 11/04/2022 Office Visit Rheumatology Dante Freedman PA [facility] RHEUMATOLOGY [place], [place] [address] (Wo rk) documented as of this encounter Visit Diagnoses Diagnosis HTN (hypertension) Unspecified essential hypertension Hypercholesteremia Pure hypercholesterolemia documented in this encounter Care Teams Medical Office Asst Relationship Specialty Start Date End Date Suhas Chowdhury MD PCP - General 06/16/10 05/19/[address] [place] [address] documented as of this encounter
--- OUTSIDE RECORDS SUMMARY | 2022-05-24 11:01 | XMS_ITS | Encounter Summary ---
:1955 Author Organization [facility] [place] [address] Care Team Providers Name Role Phone Suhas Chowdhury MD Primary Care Provider Reason for Visit Reason Comments Right Foot Pain Encounter Details Date Type Department Care Team Description 05/04/2011 [facility] [place] [facility] [place] CRISTIAN Roblero's arthropathy, [facility] Giovana tyler diabetic, [place] ([place] [address] Dx) [phone] Social History Tobacco Use Types Packs/Day Years Used Date Former Smoker Cigarettes 2 20 Quit: 01/19/19 93 Smokeless Tobacco: Never Used Alcohol Use Standard Drinks/Week Comments No 0 (1 standard drink = 0.6 oz pure alcoho l) Sex Assigned at Date Recorded Not on file documented as of this encounter Progress Notes Donell Ngo - 05/04/2011 8:10 AM EDT Subjective: Patient ID: Leroy Torres is a 55 y.o. male. HPI This is a 55yo diabetic male here for right ankle ulcer. Has been in a total contact cast for past 9 weeks. Morning BS 185, last HAIC 8.6 No fevers. Averages about 4-5 hours total on feet. Patient Active Problem List Diagnoses Code ??? Amputee, below knee V49.75M ??? 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ifestations 250.40D ??? End stage renal disease 585.6 ??? Diabetes mellitus with neuropathy 250.60DQ ??? Charcot's arthropathy, diabetic, R 250.60HA ??? Wound 959.9BN ??? Tremor, essential 333.1W ??? Open wound of right ankle 891.0FN PShx: Left BKA in 1999 ROS Objective: Physical Exam 6'3 310lbs Ortho Exam Right ankle/foot with charcot deformity. Lateral ankle wound appears smaller. Lower legs with hyperpigmentation and sparse hair. Diminished pulses. There is a new lateral superficial blister to right small toe. After hibiclens wash, Right ankle ulcer was debrided with No.17 blade. Central granulation tissue with pink color. Neg/ for fibrin. There is thick callous on periphery. Bleeding controlled with silver nitrate. Wound measures: 01nem98 And small toe measure 9mm diameter Dressed with Iodosorb and mepilex dressing. Dispensed: NONE Placed back into total contact cast. Neurologic Exam Assessment and Plan: Right Charcot deformity/ulcer Discussed and answered questions on BKA vs :shaving of bone. Will f/u in 1 weeks with cast and eval. Physician coverage today is Dr. Roy documented in this encounter Plan of Treatment Upcoming Encounters Date Type Specialty Care Team Description 05/26/2022 Office Visit Otolaryngology Ricardo Panda PA [facility] [address] [place], [place] [address] (Wo rk) 06/02/2022 Infusion Hematology and Oncology 06/16/2022 Infusion Hematology and Oncology 06/21/2022 Office Visit Neurology Tyler Rojas MD [facility] Neurology [place], [place] [phone] (Wo rk) 06/30/2022 Infusion Hematology and Oncology 07/14/2022 Infusion Hematology and Oncology 07/28/2022 Infusion Hematology and Oncology 08/11/2022 Infusion Hematology and Oncology 11/04/2022 Office Visit Rheumatology Dante Freedman PA [facility] RHEUMATOLOGY [place], [place] [address] (Wo rk) documented as of this encounter Visit Diagnoses Diagnosis Charcot's arthropathy, diabetic, R - Steff krystal Type II or unspecified type diabetes fredo litus with neurological manifestations, not stated as uncontrolled documented in this encounter Care Teams Globe Mounter Relationship Specialty Start Date End Date Suhas Chowdhury MD PCP - General 06/16/10 05/19/[address] [place] [address] documented as of this encounter
--- OUTSIDE RECORDS SUMMARY | 2022-05-24 11:01 | XMS_ITS | Encounter Summary ---
:1955 Author Organization [place] [address] Care Team Providers Name Role Phone Suhas Chowdhury MD Primary Care Provider Reason for Visit Reason Comments Foot Ulcer medial malleolous Encounter Details Date Type Department Care Team Description 02/22/2011 Follow-Up Orthopaedics at [facility], DR FOSTER Diabetes mellitus with neuro mendy; [facility] Giovana tyler Charcot's arthropathy, diabe tic, R; [place] [address] Wound [phone] Social History Tobacco Use Types Packs/Day Years Used Date Former Smoker Cigarettes 2 Quit: 01/19/19 93 Smokeless Tobacco: Never Used Alcohol Use Standard Drinks/Week Comments Not Asked 0 (1 standard drink = 0.6 oz pure alcoho l) Sex Assigned at Date Recorded Not on file documented as of this encounter Progress Notes Lizzy Pennington RN - 02/22/2011 2:07 PM EDT LOWER EXTREMITY NURSE VISIT Problem: left medial malleolar ulceration. ??? Diabetes mellitus with neuropathy [250.60DQ] 02/16/2011 ??? Charcot's arthropathy, diabetic, R [250.60HA] 02/16/2011 ??? CIS - Amputated below knee [] 08/02/2006 ??? CIS - Diabetes mellitus, adult onset, with renal manifestation [] 08/02/2006 ??? CIS - End stage renal disease [] 08/02/2006 Subjective: I have felt fine and the cast isn't bad. Objective: Patient arrived to clinic in a wheelchair accompanied by his mother. The cast last applied is clean and dry. The medial malleolar ulcer is superficial And measures 13mm x 18mm x 0mm. The wound edges are lightly macerated. The wound bed is full of healthy granulation. He is and has been afebrile. Procedure: Wound washed with Hibiclenz, rinsed with nss and dried thoroughly. The wound was dressed with Iodosorb and covered with Mepilex border. He was then placed back into a total contact cast. Plan: He will call us with any fever, calf pain or constitutional problems. We will plan to see him back next week for cast off, wound check and cast back on. He will bring his [place] walker boot in at that visit for an assessment. documented in this encounter Plan of Treatment Upcoming Encounters Date Type Specialty Care Team Description 05/26/2022 Office Visit Otolaryngology Ricardo Panda PA [facility] [address] [place], [place] [address] (Wo rk) 06/02/2022 Infusion Hematology and Oncology 06/16/2022 Infusion Hematology and Oncology 06/21/2022 Office Visit Neurology Tyler Rojas MD [facility] Neurology [place], [place] [phone] (Wo rk) 06/30/2022 Infusion Hematology and Oncology 07/14/2022 Infusion Hematology and Oncology 07/28/2022 Infusion Hematology and Oncology 08/11/2022 Infusion Hematology and Oncology 11/04/2022 Office Visit Rheumatology Dante Freedman PA [facility] RHEUMATOLOGY [place], [place] [address] (Wo rk) documented as of this encounter Visit Diagnoses Diagnosis Charcot's arthropathy, diabetic, R Type II or unspecified type diabetes fredo litus with neurological manifestations, not stated as uncontrolled Wound Injury, other and unspecified, unspecifi ed site documented in this encounter Care Teams Cap Parts Cutter Relationship Specialty Start Date End Date Suhas Chowdhury MD PCP - General 06/16/10 05/19/[address] [place], [place] [address] documented as of this encounter
--- OUTSIDE RECORDS SUMMARY | 2022-05-24 11:01 | XMS_ITS | Encounter Summary ---
:1955 Author Organization [facility] [place] [address] Care Team Providers Name Role Phone Suhas Chowdhury MD Primary Care Provider Encounter Details Date Type Department Care Team Description 05/12/2011 Follow-Up Orthopaedics at [facility], DR CRISTIAN Roblero's arthropathy, diabe tatiana, R; [facility] D rive Open wound of right ankle; [place] [address] Puncture wound of thumb, lef t [phone] Social History Tobacco Use Types Packs/Day Years [...] - - Temperature 37.1 ??C (98.7 ??F) 05/12/2011 2:04 PM EDT Respiratory Rate - - Oxygen Saturation - - Inhaled Oxygen Concentration - - Weight - - Height - - Body Mass Index - - documented in this encounter Progress Notes Lizzy Pennington RN - 05/12/2011 3:12 PM EDT LOWER EXTREMITY NURSE VISIT Diabetes mellitus with neuropathy [250.60DQ] 02/16/2011 Charcot's arthropathy, diabetic, R [250.60HA] 02/16/2011 Amputated below knee [[id number]] 08/02/2006 Problem: Diabetic male with Charcot arthropathy, right malleolar ulceration and new thumb puncture wound. Last X-ray: Ankle 04-26-11 Subjective: I am strongly considering the amputation but haven't decided yet. I wonder if you could look at my finger, I dropped some wood on it and it has been fine until today. Now I notice rednessand it hurts some now too. Objective: Patient arrived to clinic in a wheelchair accompanied by his mother and sister.The cast last applied is clean and dry. The medial malleolar ulcer continues superficial and measures 16mm x 13mm x 0mm. The wound edges are soft, moist and without callus today. The wound bed is full of healthy g ranulation.There is no redness or warmth noted. There is a 2mm x 2mm superficial right 5th digit scrape. No erythema or drainage. Note redness, bogginess and some warmth at the base of the left thumb nail medially. Appreciate loose slough between the nail and the cuticle. No drainage noted. Procedure: Ankle, toe and thumb wounds washed with Hibiclenz, rinsed with nss and dried thoroughly. The ankle wound was dressed with Acticoat then Iodosorb and covered with Mepilex. The 5th toe was covered with dsd. He was then placed back into a total contact cast. Debridement of the slough at the base of the thumb uncovered a splinter 10mm x 1mm which was removedfrom the wound with a sterile forceps. Puss was expressed briefly then drainage ran serous and stopped within 1 minute. Plan:Discussed the thumb wound with Dr. Quintana who recommends Soaking the thumb bid. He will cover it with dab of Bacitracin and a Bandaid when he is outside of the house or working in the home. He will remove the dressing at hs.Dr. Quintana also recommends oral abx but the patient is PCN and Clindamycin allergic. Call placed to ID for some direction about abx. He will call us with any fever, calf pain or constitutional problems. We will recheck the wounds in [address] Benitez supervised this visit documented in this encounter Plan of Treatment Upcoming Encounters Date Type Specialty Care Team Description 05/26/2022 Office Visit Otolaryngology Ricardo Panda PA [facility] er Dr [place] [address] (Wo rk) 06/02/2022 Infusion Hematology and Oncology 06/16/2022 Infusion Hematology and Oncology 06/21/2022 Office Visit Neurology Tyler Rojas MD [facility] Neurology [place], [place] [phone] (Wo rk) 06/30/2022 Infusion Hematology and Oncology 07/14/2022 Infusion Hematology and Oncology 07/28/2022 Infusion Hematology and Oncology 08/11/2022 Infusion Hematology and Oncology 11/04/2022 Office Visit Rheumatology Dante Freedman PA [facility] RHEUMATOLOGY [place], [place] [address] (Wo rk) documented as of this encounter Visit Diagnoses Diagnosis Charcot's arthropathy, diabetic, R Type II or unspecified type diabetes fredo litus with neurological manifestations, not stated as uncontrolled Open wound of right ankle Open wound of knee, leg (except thigh), and ankle, without mention of complication Puncture wound of thumb, left Open wound of finger(s) , without mentio n of complication documented in this encounter Care Teams Harm Reduction Worker Relationship Specialty Start Date End Date Suhas Chowdhury MD PCP - General 06/16/10 05/19/[address] [place] [address] documented as of this encounter
--- OUTSIDE RECORDS SUMMARY | 2022-05-24 11:01 | XMS_ITS | Encounter Summary ---
:1955 Author Organization [facility] [place] [address] Care Team Providers Name Role Phone Suhas Chowdhury MD Primary Care Provider Reason for Visit Reason Comments Diabetes Encounter Details Date Type Department Care Team Description 02/17/2011 Office Visit Endocrinology at [facility] Margaret Ahuja, Diabetes (Primary Dx) [place] [address] [place] [address] ENDOCRINOLOGY DEPT. [place], [place] [address] Social History Tobacco Use Types [...] Sign Reading Time Taken Comments Blood Pressure 116/54 02/17/2011 1:04 PM EDT Pulse 60 02/17/2011 1:04 PM EDT Temperature - - Respiratory Rate - - Oxygen Saturation - - Inhaled Oxygen Concentration - - Weight 140.2 kg (309 lb) 02/17/2011 1:04 PM EDT Height 191.8 cm (6' 3.5) 02/17/2011 1:04 PM EDT Body Mass Index 38.11 02/17/2011 1:04 PM EDT documented in this encounter Patient Instructions Patient InstructionsMargaret Sawyer APRN - 02/17/2011 1:24 PM EDT Continue to try to lose 5 lbs Consider changing donuts for breakfast to healthier choices documented in this encounter Progress Notes Margaret Sawyer APRN - 02/17/2011 3:40 PM EDT OFFICE VISIT NOTE DATE OF VISIT: 02/17/2011 REASON FOR VISIT: Followup type 2 DM with many severe complications. BRIEF HISTORY: Presents with mother and sister. States glucose levels range from about 150 to 250. Is hoping hemoglobin A1c is lower. States he was not able to lose weight, he was going to start going to [employer], but there are stairs to get into those meetings. DIABETES REGIMEN: NPH 70 units a.m., 40 units p.m. Regular insulin 40 to 50 units a.m. and p.m. DATE OF DIAGNOSIS OF DIABETES: 1986. 24-HOUR MEAL PLAN: Has appointment later with DALE HAMMOND. Continues to eat doughnuts for breakfast. PHYSICAL ACTIVITY: No much. Is being followed by the high-risk foot clinic for an ulcer on his right lateral ankle. Has a cast below right knee distally. COMPLICATIONS: Had a kidney transplant 2007. Has left above-knee amputation. PHYSICAL EXAMINATION: Appearance: He is in a wheelchair wheeled by his sister. He is large-framed and overweight. Very pleasant and talkative with good eye contact. Eyes: No retinopathy by green light exam. Neck: No thyromegaly or lymphadenopathy. Heart: Regular rate and rhythm. No murmurs. Lungs are clear to auscultation. Not able to examine right foot related to cast. Has an appointment next week for the cast to be removed and the ulcer area to be reexamined at the high-risk foot clinic. Hemoglobin A1c 8.5%, previous was 7.9%. IMPRESSION AND PLAN: Diabetes mellitus type 2, in fair/poor overall control and obesity. Hopefully, the patient will be able to follow the recommendations made by DALE HAMMOND. Will consider changing insulin regimen to basal bolus at next office visit if not able to lower hemoglobin A1c close to 7.0%. Encouraged the patient to aim for glucose levels < 110 before breakfast and evening meal to facilitate healing of ulcer. The patient states he has been having some trouble sleeping because he coughs when he lies down and he takes csmw-lct-[id number] sugar-free Robitussin for the cough. Advised that cough could possibly be related to his gastroesophageal reflux disease symptoms. Consider changing the medication that he takes for gastroesophageal reflux disease. Glucose level at the time of lab draw was over 200, advised the patient he did not take enough regular insulin for his breakfast or he could change his breakfast to a smaller portion or healthier choices to avoid hyperglycemia greater than two hours after the meal. Of this 31-minute office visit, I spent 30 minutes counseling with the patient, mother, and sister on the following issues: Target blood glucose ranges especially in the setting of an ulcer, reviewing blood pressure targets and cholesterol targets, and reviewing prevention strategies. He does take an ARB and a statin. Return to office in June. Will check hemoglobin A1c and other labs that he is due for. documented in this encounter Plan of Treatment Upcoming Encounters Date Type Specialty Care Team Description 05/26/2022 Office Visit Otolaryngology Ricardo Panda PA [facility] [address] [place] [address] (Wo rk) 06/02/2022 Infusion Hematology and Oncology 06/16/2022 Infusion Hematology and Oncology 06/21/2022 Office Visit Neurology Tyler Rojas MD [facility] Neurology [place], [place] [phone] (Wo rk) 06/30/2022 Infusion Hematology and Oncology 07/14/2022 Infusion Hematology and Oncology 07/28/2022 Infusion Hematology and Oncology 08/11/2022 Infusion Hematology and Oncology 11/04/2022 Office Visit Rheumatology Dante Freedman PA [facility] RHEUMATOLOGY [place] [address] (Wo rk) documented as of this encounter Procedures Procedure Name Priority Date/Time Associated Comments Diagnosis TSH Routine 02/17/2011 11:36 AM Diabetes Results for this EDT procedure are i n the results section. HEMOGLOBIN A1C Routine 02/17/2011 11:36 AM Diabetes Result s for this EDT procedure are i n the results section. BASIC METABOLIC Routine 02/17/2011 11:36 AM Diabetes Resul ts for this PANEL (NON-FASTING) EDT procedur e are in the results section. documented in this encounter Results (ABNORMAL) HDL cholesterol (11/08/2011 9:21 AM EDT) P athologist Signature Chol, Total 117 <=199 mg/dL [facility] Comment: Recommendations of the NCEP Adult Treatm ent Panel for the following risk cutoff thresholds for the [place] popul[place] n: Desirable: <200 mg/dL Borderline High: 200-239 mg/dL High: > or = 240 mg/dL HDL 22 (L) >=40 mg/dL HOLLI MILLENNIUM Comment: Reference range: ??Low HDL: ?? < 40 mg/dL ??Normal: ?40-60 mg/dL ??Desirable: > 60 mg/dL SERENA 2001; 285(19):2929-5847 Chol/HDL Ratio 5.3 ratio [facility] Comment: A Cholesterol to HDL ratio below 4:1 is desirable. ??Studies suggest that increased CAD risk occurs at ratios abov e 5 for females and above 6 for men. ? [place] Heart Association ??(htt p://www.americanheart.org) ? [place] Int Med, 1994; 121:641 ? AM J Med, 1998; 105(1A):48S Specimen Anatomical Collection Method Collection Time Receive d Time (Source) Location / / Volume Laterality Blood specimen 11/08/2011 9:21 AM 012 9:21 (specimen) EDT AM EDT Resulting Agency Comment Spec In Lab Donell Hernandez MD CHEMISTRY ORDERABLES Performing Organization Address City/State/ZIP Code [place] [address] [facility] LDL cholesterol, direct (11/08/2011 9:21 AM EDT) P athologist Signature LDL Chol 67 <=99 mg/dL CERNER Direct [facility] Comment: The National Cholesterol Education Progr am (NCEP) has set the following guidelines for LDL Cholesterol: Reference range: ?? Optimal: ?<100 mg/dL ?? Near Optimal/Above Optimal: ?? 100-1 29 mg/dL ?? Borderline high: ?130-159 mg/dL ?? High: ? 160-189 mg/dL ?? Very high: ?>ss=494 mg/dL SERENA 2001: 285(19):4471-6726 Specimen Anatomical Collection Method Collection Time Receive d Time (Source) Location / / Volume Laterality Blood specimen 11/08/2011 9:21 AM 012 9:21 (specimen) EDT AM EDT Resulting Agency Comment Spec In Lab Donell Hernandez MD CHEMISTRY ORDERABLES Performing Organization Address City/State/[place] [address] CERNER MILLENNIUM (ABNORMAL) Vitamin D 25 hydroxy (11/08/2011 9:21 AM EDT) athologist Signature 25-OH Vit D 21 (L) [...] of 08/31/2011 the Vitamin D Total, 25 [place] xy assays are being analyzed by the [facility] Chemistry Laboratory. ??There is NO CHANGE in units. ??Please contact the chemistry laboratory at [phone] with martha garzanigel. Specimen Anatomical Collection Method Collection Time Receive d Time (Source) Location / / Volume Laterality Blood specimen 11/08/2011 9:21 AM 012 9:21 (specimen) EDT AM EDT Resulting Agency Comment Spec In Lab Donell Hernandez MD CHEMISTRY ORDERABLES Performing Organization Address City/State/ZIP [place] [address] CERNER MILLENNIUM (ABNORMAL) Hemoglobin A1c (02/17/2011 11:36 AM EDT) Analysis Performed At Patho logist Time Signature Hemoglobin A1C 8.5 (H) 4.3 - 6.1 CERNER % MILLENNIUM Est Avg Gluc 197 mg/dL CERNER MILLENNIUM Comment: eAG equivalents for [...] available on e ADA website: ??http://professional.diabetes.org/gluc osecalculator.aspx Reference: Scooby MALDONADO, Nba Gilbert, Sydnee R, et al. ??Tr anslating the A1C assay into estimated average glucose values. ??Diabetes Care 2008:31(8):2664-1198. Specimen Anatomical Collection Method Collection Time Receive d Time (Source) Location / / Volume Laterality Blood specimen 02/17/2011 11:36 1 (specimen) AM EDT 11:50 AM EDT Donell Hernandez MD CHEMISTRY ORDERABLES Performing Organization Address City/State/ZIP [place] [address] CERNER MILLENNIUM (ABNORMAL) Basic metabolic panel (02/17/2011 11:36 AM EDT) P athologist Signature Glucose Lvl 218 (H) 60 - 199 CERNER mg/dL MILLENNIUM Comment: Diabetes: >=200 mg/dL plus symp toms BUN 37 (H) 10 - 20 mg/dL CERNER MILLENNIU M Creatinine 1.74 (H) 0.80 - 1.50 mg/dL CERNER MILL ENNIUM Sodium 137 135 - 145 mmol/L CERNER OMKAR NIUM Potassium 5.0 3.5 - 5.0 mmol/L CERNER OMKAR NIUM Comment: Please note: ??Patients with WBC >100,00 0 may have falsely elevated Potassium levels. ??For accurate Potassium quantif ication in these patients send serum separator tube (gold top) for subsequent determinations. ??Contact the Clinical Chemistry Laboratory if there are any qu estions. Chloride 107 98 - 107 mmol/L CERNER MILLENN IUM CO2 21 (L) 22 - 31 mmol/L CERNER MILLENNI UM Anion Gap 9 5 - 15 mmol/L CERNER MILLENNIU M Calcium 9.4 8.5 - 10.5 mg/dL CERNER OMKAR NIUM Estimated GFR 41 (L) >=60 CERNER MILLENNIU M Comment: The [...] Location / / Volume Laterality Blood specimen 02/17/2011 11:36 1 (specimen) AM EDT 11:50 AM EDT Donell Hernandez MD CHEMISTRY ORDERABLES Performing Organization Address City/[facility]/ZIP Code Phon e Number [address] [facility] TSH (02/17/2011 11:36 AM EDT) P athologist Signature TSH 2.28 0.27 - 4.20 CERNER mcIU/mL [facility] Specimen Anatomical Collection Method Collection Time Receive d Time (Source) Location / / Volume Laterality Blood specimen 02/17/2011 11:36 1 (specimen) AM EDT 11:50 AM EDT Donell Hernandez MD CHEMISTRY ORDERABLES Performing Organization Address City/[facility] Phon e Number [address] [facility] documented in this encounter Visit Diagnoses Diagnosis Diabetes - Primary Type II or unspecified type diabetes fredo litus without mention of complication, not stated as uncontrolled documented in this encounter Care Teams Packaging Design Engineer Relationship Specialty Start Date End Date Suhas Chowdhury MD PCP - General 06/16/10 05/19/11 [address] [place] [address] documented as of this encounter
--- OUTSIDE RECORDS SUMMARY | 2022-05-24 11:01 | XMS_ITS | Encounter Summary ---
:1955 Author Organization [facility] [place] [address] Care Team Providers Name Role Phone Suhas Chowdhury MD Primary Care Provider Reason for Visit Reason Onset Date Comments Medication Refill 03/24/2011 Encounter Details Date Type Department Care Team Description 03/24/2011 Refill Solid Organ Transplant Karen Chino, Transplant kidney at [facility] GYPSUM CALCINER (Primary Dx) [facility] [place] [address] TRANSPLANT SURGERY [phone] [place], [place] [address] (Wo rk) Social History Tobacco [...] Office Visit Otolaryngology Ricardo Panda PA [facility] Dr [place] [address] (Wo rk) 06/02/2022 Infusion Hematology and Oncology 06/16/2022 Infusion Hematology and Oncology 06/21/2022 Office Visit Neurology Tyler Rojas MD [facility] Dr [place], [place] [phone] (Wo rk) 06/30/2022 Infusion Hematology and Oncology 07/14/2022 Infusion Hematology and Oncology 07/28/2022 Infusion Hematology and Oncology 08/11/2022 Infusion Hematology and Oncology 11/04/2022 Office Visit Rheumatology Dante Freedman PA [facility] RHEUMATOLOGY [place], [place] [address] (Wo rk) documented as of this encounter Visit Diagnoses Diagnosis Transplant kidney - Primary Kidney replaced by transplant documented in this encounter Care Teams Candle Molder Relationship Specialty Start Date End Date Suhas Chowdhury MD PCP - General 06/16/10 05/19/11 [address] [place] [address] documented as of this encounter
--- OUTSIDE RECORDS SUMMARY | 2022-05-24 11:01 | XMS_ITS | Encounter Summary ---
:1955 Author Organization [facility] [place] [address] Care Team Providers Name Role Phone Suhas Chowdhury MD Primary Care Provider Encounter Details Date Type Department Care Team Description 03/10/2011 Abstract Orthopaedics at [facility] [place] [address] Social History Tobacco Use Types Packs/Day [...] Ricardo Panda PA [facility] Dr [place], [place] [address] (Wo rk) 06/02/2022 Infusion Hematology and Oncology 06/16/2022 Infusion Hematology and Oncology 06/21/2022 Office Visit Neurology Tyler Rojas MD [facility] Dr Farah [place], [place] [phone] (Wo rk) 06/30/2022 Infusion Hematology and Oncology 07/14/2022 Infusion Hematology and Oncology 07/28/2022 Infusion Hematology and Oncology 08/11/2022 Infusion Hematology and Oncology 11/04/2022 Office Visit Rheumatology Dante Freedman PA [facility] RHEUMATOLOGY [place], [place] [address] (Wo rk) documented as of this encounter Visit Diagnoses Not on filedocumented in this encounter Care Teams Recycler Forklift Driver Truck Driver Relationship Specialty Start Date End Date Suhas Chowdhury MD PCP - General 06/16/10 05/19/[address] [place] [address] documented as of this encounter
--- OUTSIDE RECORDS SUMMARY | 2022-05-24 11:01 | XMS_ITS | Encounter Summary ---
:1955 Author Organization [facility] [place] [address] Care Team Providers Name Role Phone Suhas Chowdhury MD Primary Care Provider Reason for Visit Reason Onset Date Comments Medication Refill 03/02/2011 Encounter Details Date Type Department Care Team Description 03/02/2011 Refill Solid Organ Transplant Aljeo Garnett Transplant kidney at [facility] MD Thang (Primary Dx) [facility] [place] [address] TRANSPLANT SURGERY [phone] [place], [place] [address] (Wo rk) Social History Tobacco [...] PA [facility] Dr [place] [address] (Wo rk) 06/02/2022 Infusion Hematology and Oncology 06/16/2022 Infusion Hematology and Oncology 06/21/2022 Office Visit Neurology Tyler Rojas MD [facility] Dr [place], [place] [phone] (Wo rk) 06/30/2022 Infusion Hematology and Oncology 07/14/2022 Infusion Hematology and Oncology 07/28/2022 Infusion Hematology and Oncology 08/11/2022 Infusion Hematology and Oncology 11/04/2022 Office Visit Rheumatology Dante Freedman PA [facility] RHEUMATOLOGY [place], [place] [address] (Wo rk) documented as of this encounter Visit Diagnoses Diagnosis Transplant kidney - Primary Kidney replaced by transplant documented in this encounter Care Teams Coding Assistant Relationship Specialty Start Date End Date Suhas Chowdhury MD PCP - General 06/16/10 05/19/11 [address] [place] [address] documented as of this encounter
--- OUTSIDE RECORDS SUMMARY | 2022-05-24 11:01 | XMS_ITS | Encounter Summary ---
:1955 Author Organization [facility] [place] [address] Care Team Providers Name Role Phone Candido Jenkins MD Primary Care Provider Encounter Details Date Type Department Care Team Description 06/04/2011 Follow-Up Orthopaedics at [facility], DR FOSTER Pre-op testing ([facility] Giovana tyler Dx) [place] [address] Social History Tobacco Use Types Packs/Day [...] Panda PA [facility] Dr [place], [place] [address] (Wo rk) 06/02/2022 Infusion Hematology and Oncology 06/16/2022 Infusion Hematology and Oncology 06/21/2022 Office Visit Neurology Tyler Rojas MD [facility] Dr Farah [place], [place] [phone] (Wo rk) 06/30/2022 Infusion Hematology and Oncology 07/14/2022 Infusion Hematology and Oncology 07/28/2022 Infusion Hematology and Oncology 08/11/2022 Infusion Hematology and Oncology 11/04/2022 Office Visit Rheumatology Dante Freedman PA [facility] RHEUMATOLOGY [place], [place] [address] (Wo rk) documented as of this encounter Results (ABNORMAL) Hemoglobin A1c (06/04/2011 1:16 PM EST) [facility] Time Signature Hemoglobin A1C 7.5 (H) 4.3 - 6.1 CERNER % MILLENNIUM Est Avg Gluc 169 mg/dL CERNER MILLENNIUM Comment: eAG equivalents for [...] into estimated average glucose values. ??Diabetes Care 2008:31(8):5171-9260. Specimen Anatomical Collection Method Collection Time Receive d Time (Source) Location / / Volume Laterality Blood specimen 06/04/2011 1:16 PM 011 1:24 (specimen) EST PM EST Narayan Roy Jr., MD CHEMISTRY ORDERABLES Performing Organization Address City/State/[place] [address] [facility] documented in this encounter Visit Diagnoses Diagnosis Pre-op testing - Primary Preoperative examination, unspecified documented in this encounter Care Teams Training Developer Relationship Specialty Start Date End Date Candido Jenkins MD PCP - General 05/20/11 04/01/13 [address] [place] [address] documented as of this encounter
--- OUTSIDE RECORDS SUMMARY | 2022-05-24 11:01 | XMS_ITS | Encounter Summary ---
:1955 Author Organization [facility] [place] [address] Care Team Providers Name Role Phone Suhas Chowdhury MD Primary Care Provider Reason for Visit Reason Comments Wound Check left medial malleolar ulcera tion. 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 Diabetes mellitus with neuropathy [250.60DQ] 02/16/2011 Charcot's arthropathy, diabetic, R [250.60HA] 02/16/2011 ??? Amputated below knee [] 08/02/2006 Subjective: I hope it is better. It sure feel good. Objective: Patient arrived to clinic in a wheelchair accompanied by his mother and sister.The cast last applied is clean and dry. The medial malleolar ulcer continues superficial and measures 22mm x 12mm x 0mm. The wound edges are soft, dry and lightly callused. The wound bed is [...] PA [facility] Dr [place], [place] [address] (Wo rk) 06/02/2022 Infusion Hematology and Oncology 06/16/2022 Infusion Hematology and Oncology 06/21/2022 Office Visit Neurology Tyler Rojas MD [facility] Neurology [place], [place] [phone] (Wo rk) 06/30/2022 Infusion Hematology and Oncology 07/14/2022 Infusion Hematology and Oncology 07/28/2022 Infusion Hematology and Oncology 08/11/2022 Infusion Hematology and Oncology 11/04/2022 Office Visit Rheumatology Dante Freedman PA [facility] RHEUMATOLOGY [place], [place] [address] (Wo rk) documented as of [...] uncontrolled documented in this encounter Care Teams Gis Mapping Technician Relationship Specialty Start Date End Date Suhas Chowdhury MD PCP - General 06/16/10 05/19/11 [address] [place], [place] [address] documented as of this encounter
--- OUTSIDE RECORDS SUMMARY | 2022-05-24 11:01 | XMS_ITS | Encounter Summary ---
:1955 Author Organization [place] [address] Care Team Providers Name Role Phone Candido Jenkins MD Primary Care Provider Encounter Details Date Type Department Care Team Description 06/21/2011 Surgery Main Operating Room Narayan Gamino Jr., @AMPUTATION, BELOW-KNEE Sylvia Trevino MD (WRVU 15.37) [facility] [address] Sloan [place] [address] [place], [place] [id number] [phone] (Wo rk) Social History Tobacco Use Types [...] Sign Reading Time Taken Comments Blood Pressure 112/61 06/24/2011 10:39 AM EST Pulse 67 06/24/2011 10:39 AM EST Temperature 37 ??C (98.6 ??F) 06/24/2011 10:39 AM EST Respiratory Rate 18 06/24/2011 10:39 AM EST Oxygen Saturation 95% 06/24/2011 10:39 AM EST Inhaled Oxygen Concentration - - Weight 136 kg (299 lb 13.2 oz) 06/22/2011 2:39 PM EST Height 193 cm (6' 4) 06/22/2011 2:39 PM EST Body Mass Index 36.5 06/22/2011 2:39 PM EST documented in this encounter Discharge Instructions Patient InstructionsAnderson, Carrie L, PVC MONITOR - 06/22/2011 2:28 PM EST DISCHARGE INSTRUCTIONS: [...] a bowel movement. You can try an sfgd-hqp-scjgqhr medication, miralax if needed. 2. When you [...] or stump. 4. Call your orthopaedic surgeon (#[phone]) with any fever, chills, sweats, redness or [...] Take 1 capsule by 180 capsule 3 03/24/201109/23 capsuleIndications: mouth 2 times daily. Transplant kidney [...] bring pt to rehab. Report called to workplace rehabilitation officer. Patricia Saavedra - 06/24/2011 12:38 PM EST Office of Care Management/[employer] 2 Patient Name: Leroy Dailey : 1955 Patient has been offered a swing bed at [facility]. [facility] arranged for a 1:30pm transport. Ambulance will need: Medicare ambulance form completed and signed (MD or CRC) Copy of patient demographics [place] [facility] DNR/DNI order, if active No MD to MD report necessary. Please call Nursing Report to , ask for director process improvement. Info to accompany patient: Narcotic Prescriptions Copies of Medication Administration Records and IV sheets for past two weeks. Plan: Hris Analyst will be available to the patient and CRC for further assistance. PATRICIA SAAVEDRA, Hris Analyst Pager [phone] Miles Mccabe MD - 06/24/2011 5:57 AM [...] d/c to rehab when medically stable Andria Vazquez RN - 06/23/2011 9:58 PM EST [phone] Patient sleepy tonight, but was able to [...] Masimo on, call light within reach. Joyce Chery, PT - 06/23/2011 4:06 PM EST Physical Therapy Evaluation Patient profile: Pt. is a 56 y.o. with h/x of L BKA. male admitted on 06/21/2011 by Narayan Snowden Jr., MD for RBKA secondary to Charcot foot, nonhealing ulcer. . Social History: Patient lives with his mother in [facility], Stairs: 0 Baseline Mobility: independent with L [...] interventions:18 minutes functional JOYCE CHERY PT 06/23/2011 Pager:[phone] Physical Therapy Rehabilitation Department Stephanie Borrego OT - 06/23/2011 10:00 AM EST Occupational Therapy Note Checked in with nursing this morning. Pt nauseous and unable to participate. This therapist unable to follow up in the pm. Stephanie Borrego, OTR Pager [phone] Miles Mccabe MD - 06/23/2011 7:51 AM [...] BELOW-KNEE performed by NARAYAN GAMINO JR at [facility] MAIN OR Social History: Patient [...] Pt asking OT for assistance to don physical therapy nurse on L stump. Pt turning beat red when attempt to don physical therapy nurse over stump, while long sitting in bed. [...] stump iftikhar wrapped and L stump with physical therapy nurse on it. Pt with large pannis/abdomen. Informed [...] 2' swelling, and not locking. Pt issued physical therapy nurse earlier today to wear to help shape [...] toilet needed. Discharge Recommendations: Patient will require 14/02 supervision and assistance. Patient would benefit and [...] 3. Patient will be able to don physical therapy nurse/ sleeve on L LE independently and appropriately [...] minutes Total timed interventions: 0 minutes Pager: [phone] STEPHANIE BORREGO OT 06/22/2011 Occupational Therapy Rehabilitation [...] was instructed to contact Regional Anesthesia Team ([phone]) for any unresolved sensory or motor deficits. Please contact Regional Anesthesia Team with any questions or concerns AGUSTIN BROWN MD, [phone] Shira Parks LD - 06/22/2011 1:49 PM EST Nutrition [...] 1.88* 06/22/2011 Glucose Lvl 217* 06/22/2011 A1c: 06/04;7.5% Wt Readings from Last 3 Encounters: 06/04/11 [...] Will follow weekly unless consulted sooner. Jacob Epps RN - 06/22/2011 10:20 AM EST S: I had this other amputation done twelve yrs ago. O: Chart reviewed and met with pt who had R BKA yesterday by Dr Gamino. 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 Pt went out- pt for PT after his last BKA but that was twelve yrs ago. Pt has a prosthesis for his L LE. I discussed in-pt rehab with pt and he agrees this would be beneficial. Pt [facility] I will ask the SNF RS to make referrals. Pt should be ready on pending medical status and bed availability. Pt will need a S amb and has Medicare only. I will ask IAM Nelson to see about applying for Medicaid. A: Progressing toward d/c to rehab for con't PT/OT until indep with ADLs and can return home. P: Will follow. IN Joyce Chery, PT - 06/22/2011 9:26 AM EST Physical Therapy Evaluation Patient profile: Pt. is a 56 y.o. with h/x of L BKA. male admitted on 06/21/[address] Gamino,Narayan Alex MD for RBKA secondary to Charcot foot, [...] History: Patient lives with his mother in [facility], Stairs: 0 Baseline Mobility: independent with L LE prosthesis, had stopped using a cane Equipment at home: 2 walkers, WC, cane, LLE prosthesis Precautions/Special Considerations: L BKA, new R BKA, LUE fistula, glasses Subjective: ???I can't lock the leg. It's because my leg is swollen?? Objective: Pt seen for evaluation today. Contacted [place] re: physical therapy nurse for LLE Pain: mild, p.o meds, good [...] achieving full hip/knee extension. LLE has edema, physical therapy nurse delivered to help. Expect he will progress [...] timed interventions:0 minutes JOYCE CHERY, PT 06/22/2011 Pager:[phone] Physical Therapy Rehabilitation Department Miles Aguirre MD - 06/22/2011 7:26 AM EST ORTHOPAEDIC [...] Franco RN - 06/21/2011 8:01 PM EST [phone] Patient alert and oriented times four. Lung sounds diminished bilaterally with moderate cough with no production. IS teaching completed with return demonstration. Hypoactive bowel sounds in all four quadrants, states he is passing flatus/burping. Last bowel movement per patient was yesterday. Pain well controlled with Morphine BENCH ASSEMBLER BATTERY (settings checked) with LR at 100 cc/hr. IV to right arm patent. Per RN report, patient was straight cathed in PACU. Patient bladder scanned here at 1910 for 64 cc. Will continue to monitor output. No dixon, patient uses urinal. Dressing to right leg is aced cleaned dry intact. Only states minor throbbing to inside above knee. Blood sugar at HS 222, covered per MAR. Masimo on. Call light within reach. Nicola [...] dry and intact. Pt rates his pain 2/1-, which he states is acceptable at this time. Pt educated on the use of the call villarreal and incentive spirometer. Will continue to monitor. Juju Bhandari RN - 06/21/2011 3:[address] Mccabe aware of bladder scan. Will write straight cath orders. 1537 straight cath'd for 650cc 1550 principal planner initiated. Patient able to verbalize and demonstrate [id number] patient hr in 30's while dry heaving. Spontaneously resolved. Patient states nausea has resolved after zofran given. No further bradycardia. 1606 family at bedside. Patient states that he is feeling pretty good . Using principal planner with good results. Patients glasses and teeth given to patient Rayo Dickens RN - 06/21/2011 11:59 AM EST Entered [...] Patient began rehab on POD#1 with NWChris RLParminder, remembering to use a walker or crutches at all times for balance and protection. The BENCH ASSEMBLER BATTERY was discontinued on POD#1 and the patient [...] a bowel movement. You can try an abvn-kyj-tchepsj medication, miralax if needed. 2. When you [...] or stump. 4. Call your orthopaedic surgeon (#[phone]) with any fever, chills, sweats, redness or [...] AM Margaret Sawyer APRN [facility]c [phone] [facility] Joint Appt Resource Endo Lab [facility] 5a [phone] [facility] 07/01/2011 2:20 PM Narayan Gamino Jr., MD [facility] 3c [phone] None Future Orders Please Complete By Expires Chlorhexidine scrub: [[id number] Custom] Process Instructions: Scheduling Instructions: Comments: Shower and wash the intended surgical site as instructed the evening and morning prior to surgery. Dispense 1 bottle. Questions: Responses: Provider Contact Information: Primary Care Provider: CANDIDO JENKINS MD [phone] Hospital Attending: Narayan Gamino Jr., MD Department of Orthopaedic Surgery Sports: [phone] For questions regarding this document or issues relating to this hospitalization on the Medical Service, please contact your inpatient physician through the [facility] Video Presentation Operator . Issues after hours and on weekends [...] Mccabe MD - 06/21/2011 3:27 PM EST [facility] Operative Note Patient Name: Leroy Dailey : [id number] MR#: [id number] Case Date: 06/21/2011 Surgeon: Surgeon(s) and Role: [...] sterile fashion. A time-out was performed per [facility] protocol. The team agreed to proceed. An [...] Operative Note Patient Name: Leroy Dailey : [id number] MR#: [id number] Case Date: 06/21/2011 Surgeon: Surgeon(s) and Role: [...] PA [facility] [address] [place] [address] (Oscar escobedo) 06/02/2022 Infusion Hematology and Oncology 06/16/2022 Infusion Hematology and Oncology 06/21/2022 Office Visit Neurology Tyler Rojas MD [facility] [address] [place], [place] [phone] (Oscar escobedo) 06/30/2022 Infusion Hematology and Oncology 07/14/2022 Infusion Hematology and Oncology 07/28/2022 Infusion Hematology and Oncology 08/11/2022 Infusion Hematology and Oncology 11/04/2022 Office Visit Rheumatology Dante Freedman PA [facility] RHEUMATOLOGY [place], [place] [address] (Wo rk) documented as of this [...] CARE TEST ORDERABLE S Performing Organization Address City/[facility]/ZIP Code Phon e Number [address] CERNER MILLENNIUM POCT GLUCOSE [...] CARE TEST ORDERABLE S Performing Organization Address City/[facility]/[place] [address] CERNER MILLENNIUM SCAN, PERIPHERAL BLOOD (06/24/2011 4:18 AM EST) [facility] gist Method Time Signature Plat Estimate [...] Organization Address City/State/ZIP Code Phon e Number [place] [phone] [address]OSPITAL [address] CERNER MILLENNIUM (ABNORMAL) DIFFERENTIAL, AUTOMATED (06/24/2011 4:18 AM EST) [facility] Method Time Signature Neutrophils % 73.8 (H) [...] Address City/State/ZIP Code Phon e Number [place] [phone]OS[address] CERNER MILLENNIUM (ABNORMAL) BASIC [...] Organization Address City/State/[place] [address] [facility] (ABNORMAL) Creatinine, serum (06/24/2011 4:18 AM EST) Analysis Performed At Patho logist Time Signature Creatinine 2.02 (H) 0.80 - [...] Jr., MD CHEMISTRY ORDERABLES Performing Organization Address [facility] e Number [address] CERNER MILLENNIUM (ABNORMAL) BUN (06/24/2011 4:18 AM EST) P athologist Signature BUN 42 (H) 10 - 20 CERNER mg/dL MILLENNIUM Specimen Anatomical Collection Method Collection Time Receive d Time (Source) Location / / Volume Laterality Blood specimen 06/24/2011 4:18 AM 011 4:23 (specimen) EST AM EST Narayan Gamino Jr., MD CHEMISTRY ORDERABLES Performing Organization Address [facility] e Number [address] CERNER MILLENNIUM (ABNORMAL) Electrolytes panel [...] Jr., MD CHEMISTRY ORDERABLES Performing Organization Address City/[facility] Phon e Number [place] [phone]OS[address] CERNER MILLENNIUM (ABNORMAL) CBC [...] Jr., MD HEMATOLOGY ORDERABLES Performing Organization Address City/[facility] [place] [address] CERNER MILLENNIUM (ABNORMAL) POCT GLUCOSE LAB USE ONLY (06/23/2011 8:20 PM EST) athologist Signature POC Glucose 215 (H) 60 - 199 CERNER mg/dL [facility] Comment: Supplemental ranges: <110 mg/dL before meals <200 mg/dL all other times of the day Specimen Anatomical Collection Method Collection Time Receive d Time (Source) Location / / Volume Laterality Blood specimen 06/23/2011 8:20 PM 011 8:20 (specimen) EST PM EST Narayan Gamino Jr., MD POINT OF CARE TEST ORDERABLE S Performing Organization Address City/State/ZIP Code Phon e Number [address] CERNER [facility] (ABNORMAL) POCT GLUCOSE LAB USE ONLY (06/23/2011 6:32 PM EST) athologist Signature POC Glucose 212 (H) 60 - 199 CERNER mg/dL [facility] Comment: Supplemental ranges: <110 mg/dL before meals <200 mg/dL all other times of the day Specimen Anatomical Collection Method Collection Time Receive d Time (Source) Location / / Volume Laterality Blood specimen 06/23/2011 6:32 PM 011 6:32 (specimen) EST PM EST Narayan Gamino Jr., MD POINT OF CARE TEST ORDERABLE S Performing Organization Address City/State/[place] [address] CERNER MILLENNIUM (ABNORMAL) POCT GLUCOSE LAB USE ONLY (06/23/2011 4:22 PM EST) athologist Signature POC Glucose 291 (H) 60 - 199 CERNER mg/dL [facility] Comment: Supplemental ranges: <110 mg/dL before meals <200 mg/dL all other times of the day Specimen Anatomical Collection Method Collection Time Receive d Time (Source) Location / / Volume Laterality Blood specimen 06/23/2011 4:22 PM 011 4:22 (specimen) EST PM EST Narayan Gamino Jr., MD POINT OF CARE TEST ORDERABLE S Performing Organization Address City/State/ZIP Code Phon e Number [place] [phone]OS[address] CERNER MILLENNIUM (ABNORMAL) Basic [...] Jr., MD CHEMISTRY ORDERABLES Performing Organization Address City/[facility]/ZIP Code Phon e Number [address] CERNER MILLENNIUM (ABNORMAL) POCT GLUCOSE LAB USE ONLY (06/23/2011 2:24 PM EST) P athologist Signature POC Glucose 274 (H) 60 - 199 CERNER mg/dL [facility] Comment: Supplemental ranges: <110 mg/dL before meals <200 mg/dL all other times of the day Specimen Anatomical Collection Method Collection Time Receive d Time (Source) Location / / Volume Laterality Blood specimen 06/23/2011 2:24 PM 011 2:24 (specimen) EST PM EST Narayan Gamino Jr., MD POINT OF CARE TEST ORDERABLE S Performing Organization Address City/[facility]/[place] [address] CERNER MILLENNIUM (ABNORMAL) POCT GLUCOSE LAB USE ONLY (06/23/2011 11:21 AM EST) P athologist Signature POC Glucose 273 (H) 60 - 199 CERNER mg/dL [facility] Comment: Supplemental ranges: <110 mg/dL before meals <200 mg/dL all other times of the day Specimen Anatomical Collection Method Collection Time Receive d Time (Source) Location / / Volume Laterality Blood specimen 06/23/2011 11:21 1 (specimen) AM EST 11:21 AM EST Narayan Gamino Jr., MD POINT OF CARE TEST ORDERABLE S Performing Organization Address City/State/ZIP Code Phon e Number [address] CERNER MILLENNIUM (ABNORMAL) POCT [...] CARE TEST ORDERABLE S Performing Organization Address City/[facility]/[place] [address] CERNER MILLENNIUM (ABNORMAL) DIFFERENTIAL, [...] Jr., MD HEMATOLOGY ORDERABLES Performing Organization Address City/[facility]/[place] [address] CERNER MILLENNIUM (ABNORMAL) BUN (06/23/2011 4:39 AM EST) P athologist Signature BUN 44 (H) 10 - 20 CERNER mg/dL MILLENNIUM Specimen Anatomical Collection Method Collection Time Receive d Time (Source) Location / / Volume Laterality Blood specimen 06/23/2011 4:39 AM 011 4:55 (specimen) EST AM EST Narayan Gamino Jr., MD CHEMISTRY ORDERABLES Performing Organization Address City/[facility]/ZIP [facility] [place] [address] CERNER MILLENNIUM (ABNORMAL) Creatinine, [...] Organization Address City/State/ZIP Code Phon e Number [place] [phone] CERNER MILLENNIUM (ABNORMAL) Electrolytes [...] Jr., MD CHEMISTRY ORDERABLES Performing Organization Address City/[facility]/[place] [address] CERNER MILLENNIUM (ABNORMAL) CBC (with Diff) (06/23/2011 4:39 AM EST) P athologist Signature WBC 15.5 (H) 4.0 - [...] Jr., MD HEMATOLOGY ORDERABLES Performing Organization Address City/[facility]/[place] [address] CERNER MILLENNIUM POCT GLUCOSE LAB USE ONLY (06/22/2011 9:41 PM EST) P athologist Signature POC Glucose 131 60 - 199 CERNER mg/dL [facility]UM Comment: Supplemental ranges: <110 mg/dL before meals <200 mg/dL all other times of the day Specimen Anatomical Collection Method Collection Time Receive d Time (Source) Location / / Volume Laterality Blood specimen 06/22/2011 9:41 PM 011 9:41 (specimen) EST PM EST Narayan Gamino Jr., MD POINT OF CARE TEST ORDERABLE S Performing Organization Address City/[facility]/[place] [address] CERNER MILLENNIUM POCT GLUCOSE [...] CARE TEST ORDERABLE S Performing Organization Address City/[facility] Code Phon e Number [address] CERNER MILLENNIUM (ABNORMAL) Basic [...] M Calcium 9.1 8.5 - 10.5 mg/dL HOLLI OMKAR NIUM Estimated GFR 34 (L) >=60 [...] Organization Address City/State/[place] [address] HOLLI BALLARDIUM POCT GLUCOSE LAB USE ONLY (06/22/2011 11:57 AM EST) athologist Signature POC Glucose 136 60 - 199 CERNER mg/dL [facility] Comment: Supplemental ranges: <110 mg/dL before meals <200 mg/dL all other times of the day Specimen Anatomical Collection Method Collection Time Receive d Time (Source) Location / / Volume Laterality Blood specimen 06/22/2011 11:57 1 (specimen) AM EST 11:57 AM EST Narayan Gamino Jr., MD POINT OF CARE TEST ORDERABLE S Performing Organization Address City/State/ZIP Code Phon e Number [place] [phone]OS[address] [facility] EKG 12 Lead (06/22/2011 7:43 AM EST) Component Value Ref Range Test Analysis Performed Pathologis t Method Time At Signature Ventricular rate 54 BPM MUSE SYSTEM Atrial Rate 54 BPM MUSE SYSTEM P-R Interval 190 ms MUSE SYSTEM QRS Duration 108 ms MUSE SYSTEM Q-T Interval 426 ms MUSE SYSTEM QTC Calculated 403 ms MUSE SYSTEM (Bezet) Calculated P [place] 19 degrees MUSE SYSTEM Calculated R [place] -5 degrees MUSE SYSTEM Calculated T [place] 35 degrees MUSE SYSTEM INTERPRETATION Sinus bradycardia [...] 232 (H) 60 - 199 CERNER mg/dL [facility] Comment: Supplemental ranges: <110 mg/dL before meals <200 mg/dL all other times of the day Specimen Anatomical Collection Method Collection Time Receive d Time (Source) Location / / Volume Laterality Blood specimen 06/22/2011 6:35 AM 011 6:35 (specimen) EST AM EST Narayan Gamino Jr., MD POINT OF CARE TEST ORDERABLE S Performing Organization Address City/State/[place] [address] CERNER MILLENNIUM (ABNORMAL) Basic [...] Organization Address City/State/ZIP Code Phon e Number [place] [phone] CERNER MILLENNIUM (ABNORMAL) DIFFERENTIAL, AUTOMATED (06/22/2011 3:52 AM EST) [facility] gist Method Time Signature Neutrophils % [...] Organization Address City/State/[place] [address] CERNER MILLENNIUM (ABNORMAL) Basic [...] mmol/L CERNER M ILLENNIUM Comment: Called by: wallace, Read back by: Nikolay silva, Date/Time:06/22/11 04:39. [...] Jr., MD CHEMISTRY ORDERABLES Performing Organization Address City/[facility]/[place] [address] CERNER MILLENNIUM (ABNORMAL) CBC [...] Jr., MD HEMATOLOGY ORDERABLES Performing Organization Address City/[facility]/[place] [address] [facility] MILLENNIUM (ABNORMAL) POCT GLUCOSE LAB USE ONLY [...] CARE TEST ORDERABLE S Performing Organization Address City/[facility]/[place] [address] CERNER MILLENNIUM POCT GLUCOSE LAB USE ONLY (06/21/2011 4:42 PM EST) P athologist Signature POC Glucose 198 60 - 199 CERNER mg/dL [facility] Comment: Supplemental ranges: <110 mg/dL before meals <200 mg/dL all other times of the day Specimen Anatomical Collection Method Collection Time Receive d Time (Source) Location / / Volume Laterality Blood specimen 06/21/2011 4:42 PM 011 4:42 (specimen) EST PM EST Narayan Gamino Jr., MD POINT OF CARE TEST ORDERLEESA S Performing Organization Address City/[facility]/ZIP Code Phon e Number [address] CERNER MILLENNIUM POCT GLUCOSE LAB USE ONLY (06/21/2011 3:19 PM EST) P athologist Signature POC Glucose 177 60 - 199 CERNER mg/dL [facility] Comment: Supplemental ranges: <110 mg/dL before meals <200 mg/dL all other times of the day Specimen Anatomical Collection Method Collection Time Receive d Time (Source) Location / / Volume Laterality Blood specimen 06/21/2011 3:19 PM 011 3:19 (specimen) EST PM EST Narayan Gamino Jr., MD POINT OF CARE TEST ORDERABLE S Performing Organization Address City/[facility]/[place] [address] CERNER MILLENNIUM SURGICAL PATHOLOGY REPORT (06/21/2011 2:40 PM EST) Component Value Ref Test Analysis Performed At [facility] gist Range Method Time Signature Surgical CERNER Pathology ? [facility] MILLENNIUM Report ? Provider: ?? NARAYAN GAMINO JR ??Pt. Name: ?? ASIM LEROY Sania ? Acc #: ?[id number] ?Pt. MRN: ?[id number] ? Col Date: ?? 06/21/20 11 ?/Sex: [...] ? ---Clinical Information--- ? Specimen Submitted: ? [facility] ? Provider: ?? NARAYAN GAMINO JR ??Pt. Name: ?? LEROY DAILEY ? Acc #: ?[id number] ?Pt. MRN: ?[id number] ? Col Date: ?? 06/21/20 11 ?/Sex: ?1955,(56 years),Male ? Rec Date: ?? 06/21/2011 ?LOC: ?3WST ? SURGICAL PATHOLOGY ? A - Rt below the knee amputation ? Clinical History/Diagnosis: ? Diabetic foot ulcer Specimen (Source) Anatomical Collection Method Collection Time Re ceived Time Location / / Volume Laterality 06/21/2011 2:40 PM EST Narayan Gamino Jr., MD PATHOLOGY/CYTOLOGY ORDERABLE S Performing Organization Address City/[facility]/[place] [address] [facility] Specimen to Pathology (surgical or derm) (06/21/2011 1:47 PM EST) Specimen Anatomical Collection Method Collection Time Receive d Time (Source) Location / / Volume Laterality AP Specimen 06/21/2011 1:47 PM 1 1:47 EST PM EST Narrative [facility] M[facility] - 06/21/2011 1:[address] Specimen requisition ordered. ??Separate Pathology report to follow Narayan Gamino Jr., MD PATHOLOGY/CYTOLOGY ORDERABLE S Performing Organization Address City/[facility]/[place] [address] [facility] POCT GLUCOSE LAB USE ONLY (06/21/2011 10:19 AM EST) P athologist Signature POC Glucose 357 (H) 60 - 199 CERNER mg/dL [facility] Comment: Supplemental ranges: <110 mg/dL before meals <200 mg/dL all other times of the day Specimen Anatomical Collection Method Collection Time Receive d Time (Source) Location / / Volume Laterality Blood specimen 06/21/2011 10:19 1 (specimen) AM EST 10:19 AM EST Narayan Gamino Jr., MD POINT OF CARE TEST ORDERABLE S Performing Organization Address City/State/[place] [address] [facility] documented in this encounter Visit Diagnoses [...] forms of t remor Hypercholesteremia Pure hypercholesterolemia Diabetes mellitus with neuropathy Type II or unspecified type diabetes fredo litus with neurological manifestations, not stated as uncontrolled Open wound of right ankle Open wound of knee, leg (except thigh), and ankle, without mention of complication documented in this encounter Administered Medications Inactive Administered Medications - up to 3 most recent administrations Medication Order MAR Action Action Date Dose Rate Site vancomycin 1 g in sodium chloride Given 06/21/2011 12:56 PM EST 1 g 0.9% 250 mL 1,000 mg (1 g), Intravenous, ONCE, 1 dose, On Tue06/21/11 at 1030, Administer over 90 Minutes, This medication may have an associated drug lab level. Please check for lab orders, Day of Surgery (Day of Procedure) documented in this encounter Active and Recently Administered Medications Times are shown in EST. Scheduled Medication Order 06/22/2011 06/23/2011 06/24/2011 acetaminophen (TYLENOL) tablet 1,000 mg 0600 (Given - Provider: Nikolay Wyatt RN)1440 (Given - Provider: Andria Vazquez RN)2140 (Given - Provider: Ashley De Leon RN) 0600 (Not Given - Provider: Mer reveles RN - Reason: Patient Unable - Comment: pt had vomited)1438 (Given - Provider: Lizbeth Mcclure RN)2200 (Given by Other - Provider: Jael Vela, RN) 0600 (Given - Provider: Jael Vela, SHEILA)1400 (Due) 1,000 mg, Oral, EVERY 8 HOURS SCHEDULED, First dose on Tue06/21/11 at 2200, Until Discontinued, Maximum dose of acetaminophen is 4000 mg from all sources in 24 hours., Routine aspirin tablet 325 mg 914 (Given - Provider: Iraida Vazquez RN)2100 (Given - Provider: Ashley De Leon, SHEILA) 1015 (Given - Provider: Lizbeth hamm RN)2014 (Given - Provider: Andria Vazquez RN) 09 (Given - Provider: Nicky Hardy) 325 mg, Oral, 2 TIMES DAILY, First dose on Tue06/21/11 at 2100, Until Discontinued, Routine esomeprazole (NEXIUM) capsule 40 mg (CANCELED) 914 (G iven - Provider: Andria Vazquez RN) 1015 (Given - Provider: Lizbeth Mcclure RN) 899 (G iven - Provider: Nicky Hardy) 40 mg, Oral, DAILY, First dose on Tue at 0900, Until Discontinued, Routine fluticasone (FLONASE) 50 mcg/Actuation nasal spray 1 s pray (CANCELED) 914 (Given - Provider: Andria Vazquez RN) 1015 (Given - Provider: Lizbeth Mcclure RN) 899 (Given - Provider: Nicky morataya) 1 spray, Each Nare, DAILY, First dose on Tue06/21/11 at 1800, Until Discontinued, Routine folic acid (FOLVITE) tablet 2,000 mcg (CANCELED) 914 (Given - Provider: Andria Vazquez RN) 1015 (Given - Provider: Lizbeth Mcclure RN) 899 (G iven - Provider: Nicky Hardy) 2 mg = 2,000 mcg, Oral, DAILY, First dos e on Tue06/22/11 at 0900, Until Discontinued, Routine insulin aspart (novoLOG) PEN injection 3-12 Units 0730 (Given - Provider: Nikolay Wyatt, RN)1230 (Not Given - Provider: Latoya Gonzalez RN - Reason: Contraindicated)1630 (Not Given - Provider: Andria Vazquez RN - Reason: Contraindicated) 0730 (Given - Provider: Mer anderson RN)1130 (Given - Provider: Lizbeth Mcclure, SHEILA)1430 (Given - Provider: Lizbeth Mcclure RN)1653 (Given - Provider: Lizbeth Mcclure RN) 0730 (Given - Provider: Jael Vela, SHEILA)1130 (Given - Provider: Nicky Hardy - Comment: bg 170) 3-12 Units, Subcutaneous, 4 TIMES DAILY BEFORE MEALS & NIGHTLY, First dose on Tue06/21/11 at 1630, Until Discontinued, 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 TDD (total daily d 2099 (Not Given - Provider: Ashley De Leon RN - Reason: Order parameters not met) 183 (Not Given - Provider: Lizbeth Mcclure RN - Reason: Order parameters not met)2020 (Given - Provider: Andria Vazquez, SHEILA) ose of all insulin needed to achieve [...] De Leon, SHEILA) 2015 (Given - Provider: Andria Vazquez, SHEILA) 40 Units, Subcutaneous, NIGHTLY, First d ose on Tue06/21/11 at 2100, Until Discontinued, Routine insulin NPH human recomb (humuLIN;novoLIN) injection 7 0 Units 0700 (Given - Provider: Nikolay Wyatt, RN) 1016 (Given - Provider: Lizbeth Mcclure RN) 0700 (Given - Provider: Jael Vela, SHEILA) 70 Units, Subcutaneous, EVERY MORNING, F irst dose on Tue06/22/11 at 0700, Until Discontinued, Routine losartan (COZAAR) tablet 50 mg (CANCELED) 0915 (Given - Provider: Andria Vazquez RN) 1015 (Given - Provider: Lizbeth Mcclure RN) 09 (G iven - Provider: Nicky Hardy) 50 mg, Oral, DAILY, First dose on Tue at 0900, Until Discontinued, Routine montelukast (SINGULAIR) tablet 10 mg (CANCELED) 16 ( Given - Provider: Andria Vazquez RN) 1015 (Given - Provider: Lizbeth Mcclure RN) 899 (G iven - Provider: Nicky Hardy) 10 mg, Oral, DAILY, First dose on Tue at 0900, Until Discontinued, Routine moxifloxacin (AVELOX) tablet 400 mg (CANCELED) 899 ( iven - Provider: Andria Vazquez RN) 400 mg, Oral, DAILY, First dose on Tue08/21/10 at 1845, Until Discontinued, Routine multivitamin (THERAGRAN) tablet 1 tablet (CANCELED) 04 09 (Given - Provider: Andria Vazquez RN) 1015 (Given - Provider: Lizbeth Mcclure RN) 899 (G iven - Provider: Nicky Hardy) 1 tablet, Oral, DAILY, First dose on Tue06/22/11 at 0900, Until Discontinued, Routine mycophenolate (CELLCEPT) capsule 500 mg 916 (Given - Provider: Andria Vazquez RN)2099 (Given - Provider: Ashley De Leon, SHEILA) 1015 (Given - Provider: Lizbeth Mcclure RN)2015 (Given - Provider: Andria Vazquez RN) 09 (Given - Provider: Nicky Hardy) 500 mg, Oral, 2 TIMES DAILY, First dose on Tue06/21/11 at 2100, Until Discontinued, Routine propranolol (INDERAL LA) SR Capsule 160 mg (CANCELED) 916 (Given - Provider: Andria Vazquez RN)2099 (Given - Provider: Ashley De Leon RN) 1015 (Given - Provider: Lizbeth Mcclure RN)2015 (Given - Provider: Andria Vazquez RN) 0900 (Given - Provider: Nicky Hardy) 160 mg, Oral, 2 TIMES DAILY, First dose on Tue06/21/11 at 2100, Until Discontinued, Routine senna-docusate (PERICOLACE) 8.6-50 mg per tablet 1-4 t ablet 0917 (Given - Provider: Andria Vazquez RN)2099 (Given - Provider: Ashley De Leon RN) 1015 (Given - Provider: Lizbeth Mcclure RN)2015 (Given - Provider: Andria Vazquez RN) 0900 [...] 2099 (Give n - Provider: Ashley De Leon RN) 1718 (Given - Provider: Lizbeth Mcclure RN) 10 mg, Oral, NIGHTLY, First dose on Tue06/21/11 at 2100, Until Discontinued, Routine sodium chloride 0.9 % flush 5 mL (CANCELED) 06 (Give n - Provider: Nikolay Wyatt RN)1703 (Given - Provider: Andria Vazquez RN) 0600 [...] mL oral suspen gaby 15 g (COMPLETED) 09 (Given - Provider: Andria Vazquez RN - Comment: sent up late by pharmacy.) 15 g, Oral, ONCE, 1 dose, Tue06/22/11 at 0800, Routine tacrolimus (PROGRAF) capsule 1 mg (CANCELED) 0917 (Giv en - Provider: Andria Vazquez RN)2100 (Given - Provider: Ashley De Leon, SHEILA) 1016 (Given - Provider: Lizbeth Mcclure, SHEILA)2017 (Given - Provider: Andria Vazquez RN) 0900 (Given - Provider: Nicky Hardy) 1 mg, Oral, 2 TIMES DAILY, First dose on Tue06/21/11 at 2100, Until Discontinued, Routine vancomycin 1 g in sodium chloride 0.9% 250 mL ( ) 0100 (Not Given - Provider: Nikolay Wyatt, RN - Reason: See comment - Comment: med to be given at 0400)0400 (Given - Provider: Nikolay Wyatt, RN) 1 g = 1,000 mg, Intravenous, EVERY [...] Rectal, 2 TIMES DAILY PRN, Starti ng Tue06/23/11 at 1146, Until Lucie 06/24/11 at 1633, Constipation, Routine HYDROmorphone (DILAUDID) tablet 2-6 mg (CANCELED) 1146 (Given - Provider: Andria Vazquez, RN)1515 (Not Given - Provider: Andria Vazquez RN - Reason: See comment - Comment: already given) 2-6 mg, Oral, EVERY 4 HOURS PRN, Startin g Tue06/22/11 at 1143, Until Tue06/22/11 at 1501, Pain, Routine HYDROmorphone (DILAUDID) tablet 2-6 mg 1502 (Given - P rovider: Andria Vazquez RN)1805 (Given - Provider: Andria Vazquez RN)2105 (Given - Provider: Ashley De Leon, SHEILA) 0310 (Given - Provider: Mer anderson RN)0701 (Not Given - Provider: Mer Stokes, SHEILA - Reason: Patient Unable - Comment: patient [...] Routine documented in this encounter Care Teams [employer] Justice Relationship Specialty Start Date End Date Candido Jenkins MD PCP - General 05/20/11 04/01/13 [address] [place] [address] documented as of this encounter
--- OUTSIDE RECORDS SUMMARY | 2022-05-24 11:01 | XMS_ITS | Encounter Summary ---
:1955 Author Organization [facility] [place] [address] Care Team Providers Name Role Phone Suhas Chowdhury MD Primary Care Provider Encounter Details Date Type Department Care Team Description 04/16/2011 Orders Only Orthopaedics at [facility] Abi arthropathy, diabetic [facility] (Primary Dx) [place] [phone] ORTHOPAEDIC SURGERY [place], [place] [address] Social History Tobacco Use Types [...] [facility] er [place], [place] [address] (Wo rk) 06/02/2022 Infusion Hematology and Oncology 06/16/2022 Infusion Hematology and Oncology 06/21/2022 Office Visit Neurology Tyler Rojas MD [facility] Neurology [place], [place] [phone] (Wo rk) 06/30/2022 Infusion Hematology and Oncology 07/14/2022 Infusion Hematology and Oncology 07/28/2022 Infusion Hematology and Oncology 08/11/2022 Infusion Hematology and Oncology 11/04/2022 Office Visit Rheumatology Dante Freedman PA [facility] [place], [place] [address] (Wo rk) documented as of this encounter Visit Diagnoses Diagnosis Charcot's arthropathy, 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
--- OUTSIDE RECORDS SUMMARY | 2022-05-24 11:01 | XMS_ITS | Encounter Summary ---
:1955 Author Organization [place] [address] Care Team Providers Name Role Phone Suhas Chowdhury MD Primary Care Provider Reason for Visit Reason Comments Kidney Transplant Follow-up Encounter Details Date Type Department Care Team Description 03/22/2011 Follow-Up Solid Organ Karen Chino Transplant juanis calderon; Transplant at [facility] E, QUITLINE COUNSELOR Poisoning by antineoplastic and immunosu ppressive drugs [facility] [address] [place] [id number] SURGERY [phone] [place], [place] [address] Social History Tobacco Use Types [...] Sign Reading Time Taken Comments Blood Pressure 142/63 03/22/2011 9:27 AM EDT Pulse 58 03/22/2011 9:27 AM EDT Temperature 36.6 ??C (97.9 ??F) 03/22/2011 9:27 AM EDT Respiratory Rate - - Oxygen Saturation - - Inhaled Oxygen Concentration - - Weight 140.2 kg (309 lb) 03/22/2011 9:27 AM EDT Height 189.2 cm (6' 2.5) 03/22/2011 9:27 AM EDT Body Mass Index 39.14 03/22/2011 9:27 AM EDT documented in this encounter Progress Notes Matti Karen Zurita, QUITLINE COUNSELOR - 03/22/2011 11:27 AM EDT Subjective: Patient ID: Leroy Torres is a 55 y.o. male s/p donor kidney transplant 02/29/08. 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 HPI Comments: Mr. Torres presents to clinic for routine, post-txp f/u. He is accompanied to today's visit by his sister and his mother, both of whom are quite supportive of him and his post-txp care. Patient reports that he is, feeling well. He is currently ambulating via wheelchair with his LLE pros thesis in place and a hard cast on his right foot/ankle. The cast is related to treatment of a diabetic foot ulcer and for the purpose of trying to straighten out an old break as per patient and his family members. He is being followed by a local orthopedist, the cast is being changed on a weekly basis, and the foot ulcer is assessed at least that frequently as well. Patient also reports that he underwent sinus surgery in 04/2010 for the removal of sinus polyps. The surgery was successful and ptntreports a dramatic improvement to his symptoms. The majority of today's appt was spent reviewing the importance of good glycemic control with regards to renal graft function and longevity as well as for ptnt's overall health and wellbeing. We also reviewed the importance of keeping up with all routine, recommended, health maintenance visits and screenings. Ptnt has not been getting routine, post-txp lab work done during the past year. He was givena standing order for these labs at today's visit and I reiterated that he needs to have his these labs checked every 3 months. He voiced an understanding of these instructions. Patient states that he has not had a routine physical in over a year. He is advised to schedule an appt with his PCP at this time. Ptnt is also due for a colonoscopy (last done 06/03/2003) and routine/screening DEXAscan. He will f/u with his PCP for the scheduling of these appointments. Review of Systems Constitutional: Negative for fever and fatigue. HENT: Negative. Eyes: Negative. Respiratory: Negative for cough, chest tightness and shortness of breath. Cardiovascular: Negative for chest pain, palpitations and leg swelling. Gastrointestinal: Negative. Genitourinary: Negative for dysuria, urgency, frequency, hematuria, decreased urine volume and difficulty urinating. Musculoskeletal: LLE prosthesis. RLE in foot/ankle cast x last several weeks. Being followed by orthopedics. See comments above under HPI. Skin: Negative. Neurological: Negative for dizziness, tremors and headaches. Hematological: Negative. Psychiatric/Behavioral: Negative. Objective: BP 142/63 Pulse 58 Temp(Src) 36.6 ??C (97.9 ??F) (Oral) Ht 189.2 cm (6' 2.5) Wt 140.161 kg (309 lb) BMI 39.14 kg/m2 Physical Exam Constitutional: He is oriented to person, place, and time. He appears well- developed and well-nourished. No distress. Quite pleasant and talkative. Bright affect. Ptnt is seated in wheelchair during today's visit. HENT: Head: Normocephalic and atraumatic. Eyes: Conjunctivae and EOM are normal. Pupils are equal, round, and reactive to light. No scleral icterus. Neck: Normal range of motion. Neck supple. No JVD present. No thyromegaly present. Cardiovascular: Normal rate, regular rhythm and normal heart sounds. Pulmonary/Chest: Effort normal and breath sounds normal. No respiratory distress. Abdominal: Soft. Bowel sounds are normal. He exhibits no distension and no mass. No tenderness. He has no rebound and no guarding. Rotund abdomen. Musculoskeletal: LLE prosthesis. RLE with hard ankle cast in place. Neurological: He is alert and oriented to person, place, and time. No cranial nerve deficit. Coordination normal. Skin: Skin is warm and dry. No rash noted. He is not diaphoretic. Psychiatric: He has a normal mood and affect. His behavior is normal. Judgment and thought content normal. Recent Results (from the past 72 hour(s)) CREATININE CLEARANCE, URINE , 24 HOUR Component Value Range ??? Creat Clearance 83 (*) 90 - 139 (mL/min) ??? U24 Creat Conc 61 (mg/dL) ??? U24 Creat Calc 1.89 0.80 - 1.90 (gm/24hr) PROTEIN, URINE, 24 HOUR Component Value Range ? ? U24 Prot Conc 7 <=80 (mg/dL) ? ? U24 Prot Calc 0.22 (*) <=0.15 (gm/24hr) CALCIUM, URINE, 24 HOUR Component Value Range ??? U24 Ca Conc 0.9 (mg/dL) ??? U24 Ca Calc 27.9 (*) 50.0 - 300.0 (mg/24hr) PHOSPHORUS, URINE, 24 HOUR Component Value Range ??? U24 Phos Conc 29.5 (mg/dL) ??? U24 Phos Calc 0.9 0.4 - 1.3 (gm/24hr) URIC ACID, URINE, 24 HOUR Component Value Range ??? U24 Uric Conc 17.8 (mg/dL) ??? U24 Uric Calc 0.55 0.25 - 0.80 (gm/24hr) REFLEX LAB-U24 HRS AND VOLUME Component Value Range ??? Hours Collected 24 (hour(s)) ??? Urine TV (ml) 3100 (mL) REFLEX LAB-PTH Component Value Range ??? PTH 88 (*) 15 - 65 (pg/mL) LIPID PANEL (FASTING) Component Value Range ? ? Chol, Total 97 <=199 (mg/dL) ? ? Triglycerides 178 (*) <=149 (mg/dL) ? ? HDL 23 (*) >=40 (mg/dL) ? ? LDL Cholesterol 38 <=99 (mg/dL) ??? Chol/HDL Ratio 4.2 (ratio) COMPREHENSIVE METABOLIC PANEL (NON-FASTING) Component Value Range ??? Glucose Lvl 226 (*) 60 - 199 (mg/dL) ??? BUN 27 (*) 10 - 20 (mg/dL) ??? Creatinine 1.59 (*) 0.80 - 1.50 (mg/dL) ??? Sodium 135 135 - 145 (mmol/L) ??? Potassium 5.0 3.5 - 5.0 (mmol/L) ??? Chloride 106 98 - 107 (mmol/L) ??? CO2 24 22 - 31 (mmol/L) ??? Anion Gap 5 5 - 15 (mmol/L) ??? Calcium 9.4 8.5 - 10.5 (mg/dL) ??? Total Protein 7.8 6.4 - 8.3 (gm/dL) ??? Albumin 3.8 3.2 - 5.2 (gm/dL) ??? AST 27 0 - 39 (unit/L) ??? ALT 29 0 - 55 (unit/L) ??? Alk Phos 184 (*) 40 - 120 (unit/L) ??? Total Bilirubin 0.5 0.2 - 1.3 (mg/dL) ??? Bili, Direct 0.2 0.0 - 0.3 (mg/dL) ? ? Estimated GFR 45 (*) >=60 MAGNESIUM Component Value Range ??? Magnesium 0.77 0.69 - 1.07 (mmol/L) PHOSPHORUS Component Value Range ??? Phosphorus 3.3 2.5 - 4.5 (mg/dL) URIC ACID Component Value Range ??? Uric Acid 7.1 3.5 - 8.5 (mg/dL) CBC (WITH DIFF) Component Value Range ??? WBC 5.4 4.0 - 10.0 (x10(3)/mcL) ??? RBC 4.16 (*) 4.63 - 6.08 (x10(6)/mcL) ??? Hemoglobin 12.7 (*) 13.7 - 17.5 (gm/dL) ??? Hematocrit 39.2 (*) 40.0 - 51.0 (%) ??? MCV 94.2 (*) 79.0 - 92.0 (fL) ??? MCH 30.5 25.6 - 32.2 (pg) ??? MCHC 32.4 32.0 - 36.5 (gm/dL) ??? Platelets 170 145 - 370 (x10(3)/mcL) ??? RDWSD 47.8 (*) 35.0 - 46.0 (fL) ??? RDWCV 14.0 10.9 - 14.4 (%) ??? MPV 9.0 9.0 - 12.0 (fL) RETICULOCYTE COUNT Component Value Range ??? Retic Ct % 1.7 0.5 - 2.4 (%) ??? Retic Ct Abs 0.070 0.027 - 0.095 (x10(6)/mcL) ??? Immature Retic% 14.9 2.3 - 15.9 (%) ??? Reticulated Hgb 30.6 28.5 - 38.9 (pg) ??? Plat Immature % 1.1 0.0 - 7.4 (%) TACROLIMUS LEVEL Component Value Range ??? Tacrolimus Lvl 8.3 (ng/mL) REFLEX LAB-A-DIFF Component Value Range ??? Neutrophils % 61.6 34.0 - 71.0 (%) ??? Neutr Abs (ANC) 3.32 1.50 - 6.30 (x10(3)/mcL) ??? Lymphocytes % 24.9 19.0 - 53.0 (%) ??? Lymphocytes Abs 1.3 1.0 - 3.6 (x10(3)/mcL) ??? Monocytes % 9.3 4.0 - 13.0 (%) ??? Monocyte Abs 0.5 0.2 - 1.0 (x10(3)/mcL) ??? Eosinophils % 3.5 0.0 - 7.0 (%) ??? Eosinophils Abs 0.2 0.0 - 0.5 (x10(3)/mcL) ??? Basophils % 0.7 0.0 - 2.0 (%) ??? Basophils Abs 0.0 0.0 - 0.2 (x10(3)/mcL) ??? Immature Gran % 0.00 0.00 - 0.66 (%) ??? Courtney Gran Abs 0.00 0.00 - 0.05 (x10(3)/mcL) URINALYSIS WITH MICROSCOPIC Component Value Range ??? Glucose UA Trace (*) Negative (mg/dL) ??? Protein UA Negative (mg/dL) ??? Bilirubin UA Negative Negative (mg/dL) ??? Urobilinogen UA Normal (mg/dL) ??? pH UA 5.0 5.0 - 8.0 ??? Blood UA Negative (mg/dL) ??? Ketones UA Negative (mg/dL) ??? Nitrite UA Negative ??? Leukocytes UA Negative (mcL) ??? Appearance UA Clear Clear ??? Spec Colt UA 1.008 1.002 - 1.030 ??? Color UA Yellow Yellow ? ? RBC UA <1 0 - 3 (/HPF) ? ? WBC UA <1 0 - 3 (/HPF) CALCIUM CREATININE RATIO, RANDOM URINE Component Value Range ??? U Calcium 1.4 (mg/dL) ??? U Creatinine 50 (mg/dL) ??? Ca/Cre Ratio 0.03 (ratio) PHOSPHORUS, URINE, RANDOM Component Value Range ??? U Phosphorus 38.0 (mg/dL) Assessment and Plan: Post-transplant Status: Mr. Torres is 3 years s/p kidney transplant and maintaining stable graft function as evidenced by today' serum Cr = 1.59 which is at his baseline. Immunosuppression: Prograf: 1mg twice daily. Cellcept: None. Prednisone: None. Rapamune: None. Hydration Status: Inadequate as per today's labs. Ptnt strongly encouraged to consume no less than 3L/d of non-caffeinated fluid. Minimize/avoid caffeine intake. Hypertension Management: Adequate control. Continue antihypertensive therapy as previously prescribed. Hyperlipidemia Management: Total chol and LDL levels WNL. HDL level quite low and TG level elevated.Continue Simvastatin 10mg QHS. Heart heatlhy diet and routine physical activity encouraged. Ptnt to f/u with PCP for ongoing surveillance and management of lipid levels. Work towards tighter glycemic co ntrol. Diabetes Management: In need of tighter glycemic control as per today's RBS = 226 and 02/17/11 A1C = 8.5%. Patient is followed by endocrinology here at [facility]. He last saw Margaret Sawyer APRN, CDE on 02/17/11 and states that he sees her Q3- 4months. He is strongly encouraged to continue doing this. Continue insulin regiment as prescribed by endocirnology. Calcium and Phosphorous balance reviewed. Levels WNL. [...] with one's PCP on a yearly basis. RTC: 1 year. Continue routine, post-txp lab work Q3 months. documented in this encounter Plan of Treatment Upcoming Encounters Date Type Specialty Care Team Description 05/26/2022 Office Visit Otolaryngology Ricardo Panda PA [facility] [place] [address] (Wo rk) 06/02/2022 Infusion Hematology and Oncology 06/16/2022 Infusion Hematology and Oncology 06/21/2022 Office Visit Neurology Tyler Rojas MD [facility] Neurology [place], [place] [phone] (Wo rk) 06/30/2022 Infusion Hematology and Oncology 07/14/2022 Infusion Hematology and Oncology 07/28/2022 Infusion Hematology and Oncology 08/11/2022 Infusion Hematology and Oncology 11/04/2022 Office Visit Rheumatology Dante Freedman PA [facility] RHEUMATOLOGY [place], [place] [address] (Wo rk) Scheduled Orders Name Type Priority Associated Diagnoses Order S chedule BKV Quant Urine Microbiology STAT Transplant kidne y Expected: Poisoning by antineoplastic 03/18/2011 and immunosuppressive drugs (Approximate), Expires: 2011 BKV Quant Blood Lab STAT Transplant kid y Expected: Poisoning by antineoplastic 03/18/2011 and immunosuppressive drugs (Approximate), Expires: 2011 documented as of this encounter Procedures Procedure Name Priority Date/Time Associated Diagnosis Comme nts BK QUANT URINE STAT 03/22/2011 9:23 Results fo r this RESULT AM EDT procedure are i n the results section. CALCIUM CREATININE Routine 03/22/2011 9:23 Transplant dney Results for this RATIO, RANDOM URINE AM EDT Poisoning by procedur e are in antineoplastic and the resul ts immunosuppressive drugs sect ion. PHOSPHORUS, URINE, Routine 03/22/2011 9:23 Transplant ki dney Results for this RANDOM AM EDT Poisoning by procedure are i n antineoplastic and the resul ts immunosuppressive drugs sect ion. URINALYSIS WITH STAT 03/22/2011 9:23 Transplant kidne y Results for this REFLEX CULTURE AM EDT Poisoning by procedure are in antineoplastic and the resul ts immunosuppressive drugs sect ion. BK QUANT BLOOD STAT 03/22/2011 9:17 Results fo r this RESULT AM EDT procedure are i n the results section. PTH STAT 03/22/2011 9:17 Transplant kidne y Results for this AM EDT Poisoning by procedure are i n antineoplastic and the resul ts immunosuppressive drugs sect ion. DIFFERENTIAL, STAT 03/22/2011 9:17 Results for this AUTOMATED AM EDT procedure are i n the results section. TACROLIMUS LEVEL STAT 03/22/2011 9:17 Transplant kidn ey Results for this AM EDT Poisoning by procedure are i n antineoplastic and the resul ts immunosuppressive drugs sect ion. 1,25-DIHYDROXYCHOLEC STAT 03/22/2011 9:17 Transplant kidney Results for this ALCIFEROL AM EDT Poisoning by procedure are i n antineoplastic and the resul ts immunosuppressive drugs sect ion. VITAMIN D, STAT 03/22/2011 9:17 Transplant kidne y Results for this 25-HYDROXY AM EDT Poisoning by procedure are i n antineoplastic and the resul ts immunosuppressive drugs sect ion. RETICULOCYTE COUNT STAT 03/22/2011 9:17 Transplant ki dney Results for this AM EDT Poisoning by procedure are i n antineoplastic and the resul ts immunosuppressive drugs sect ion. CBC (WITH DIFF) STAT 03/22/2011 9:17 Transplant kidne y Results for this AM EDT Poisoning by procedure are i n antineoplastic and the resul ts immunosuppressive drugs sect ion. URIC ACID STAT 03/22/2011 9:17 Transplant kidne y Results for this AM EDT Poisoning by procedure are i n antineoplastic and the resul ts immunosuppressive drugs sect ion. PHOSPHORUS STAT 03/22/2011 9:17 Transplant kidne y Results for this AM EDT Poisoning by procedure are i n antineoplastic and the resul ts immunosuppressive drugs sect ion. MAGNESIUM STAT 03/22/2011 9:17 Transplant kidne y Results for this AM EDT Poisoning by procedure are i n antineoplastic and the resul ts immunosuppressive drugs sect ion. LIPID PANEL (REFLEX STAT 03/22/2011 9:17 Transplant k idney Results for this DIRECT LDL) AM EDT Poisoning by procedure are i n antineoplastic and the resul ts immunosuppressive drugs sect ion. COMPREHENSIVE STAT 03/22/2011 9:17 Transplant kidne y Results for this METABOLIC PANEL AM EDT Poisoning by procedure ar e in (NON-FASTING) antineoplastic and the resu lts immunosuppressive drugs sect ion. U24 HRS AND VOLUME Routine 03/22/2011 7:00 Result s for this AM EDT procedure are i n the results section. URIC ACID, URINE, 24 Routine 03/22/2011 7:00 Resu lts for this HOUR AM EDT procedure are i n the results section. CALCIUM, URINE, 24 Routine 03/22/2011 7:00 Result s for this HOUR AM EDT procedure are i n the results section. PROTEIN, URINE, 24 Routine 03/22/2011 7:00 Result s for this HOUR AM EDT procedure are i n the results section. PHOSPHORUS, URINE, Routine 03/22/2011 7:00 Result s for this 24 HOUR AM EDT procedure are i n the results section. CREATININE Routine 03/22/2011 7:00 Results for this CLEARANCE, URINE, 24 AM EDT procedu re are in HOUR the results section. documented in this encounter Results REFLEX LAB-BK QUANT URINE RESULT (03/22/2011 9:23 AM EDT) Component Value Ref Test Analysis Performed At [facility] Range Method Time Signature BKV Urine Not Detected CERNER Result [facility] BKV Urine BK Virus Urine Result Interpretation BANNERNER Interp [facility] Result: BK Virus Not Detected log concentration: Not detected Assay Range: urine: 3.1-9.2 log copies/mL (1.2x10^3 - 1.5x10 ^9 copies/mL ) Results are reported as log copies/mL. ??Changes of less than 1.0 log between serial samples may not be clinically significant. Methods: Quantitative Real time polymerase chain react ion (PCR) of viral DNA isolated from urine was performed using the [employer]ik[employer] BK Virus MGB Alert primers(2) and probes (1) an d analyzed on the [employer] Smartcycler. In addition, the PCR product sequence is confirmed us ing physical properties (melting curve analysis). This test was developed and its performance determined by the [facility] Molecular Pathology Laboratory. It has not been [...] high complexity clinical testi ng. Comment: [VERIFIED DATE]03.23.11 Verified By:Gina Clifton (Electronic Signature) Specimen Anatomical Collection Method Collection Time Receive d Time (Source) Location / / Volume Laterality Urine specimen 03/22/2011 9:23 AM 011 9:04 (specimen) EDT AM EDT Alejo Garnett MD HEMATOLOGY ORDERABLES Performing Organization Address City/[facility]/ZIP [place] [address] CERNER MILLENNIUM Phosphorus, urine, random (03/22/2011 9:23 AM EDT) P athologist Signature U Phosphorus 38.0 mg/dL CERNER MILLENNIUM Specimen Anatomical Collection Method Collection Time Receive d Time (Source) Location / / Volume Laterality Urine specimen 03/22/2011 9:23 AM 011 9:32 (specimen) EDT AM EDT Alejo Garnett MD URINE ORDERABLES Performing Organization Address City/[facility]/ZIP [place] [address] CERNER MILLENNIUM Calcium Creatinine Ratio, random urine (03/22/2011 9:23 AM EDT) P athologist Signature U Calcium 1.4 mg/dL CERNER MILLENNIUM U Creatinine 50 mg/dL CERNER MILLENNIUM Ca/Cre Ratio 0.03 ratio CERNER MILLENNIUM Specimen Anatomical Collection Method Collection Time Receive d Time (Source) Location / / Volume Laterality Urine specimen 03/22/2011 9:23 AM 011 9:32 (specimen) EDT AM EDT Alejo Garnett MD URINE ORDERABLES Performing Organization Address City/[facility]/ZIP [place] [address] CERNER MILLENNIUM (ABNORMAL) Urinalysis with microscopic (03/22/2011 9:23 AM EDT) Patholo gist Method Time Signature Glucose UA Trace (A) Negative CERNER mg/dL MILLENNIUM Protein UA Negative mg/dL CERNER MILLENNIUM Bilirubin UA Negative Negative CERNER mg/dL MILLENNIUM Urobilinogen UA Normal mg/dL CERNER MILLENNIUM pH UA 5.0 5.0 - 8.0 CERNER MILLENNIUM Blood UA Negative mg/dL CERNER MILLENNIUM Ketones UA Negative mg/dL CERNER MILLENNIUM Nitrite UA Negative CERNER MILLENNIUM Leukocytes UA Negative mcL CERNER MILLENNIUM Appearance UA Clear Clear CERNER MILLENNIUM Spec Colt UA 1.008 1.002 - CERNER 1.030 MILLENNIUM Color UA Yellow Yellow CERNER MILLENNIUM RBC UA <1 0 - 3 /HPF CERNER MILLENNIUM WBC UA <1 0 - 3 /HPF CERNER MILLENNIUM Specimen Anatomical Collection Method Collection Time Receive d Time (Source) Location / / Volume Laterality Urine specimen 03/22/2011 9:23 AM 011 9:32 (specimen) EDT AM EDT Alejo Garnett MD URINE ORDERABLES Performing Organization Address City/State/ZIP Code Phon e Number [place] [id number] CERNER MILLENNIUM REFLEX LAB-BK QUANT BLOOD RESULT (03/22/2011 9:17 AM EDT) Component Value Ref Test Analysis Performed At [facility] Range Method Time Signature BKV Blood Not Detected CERNER Result MILLENNIUM BKV Blood BK Virus Blood Result Interpretation CERNER Interp MILLENNIUM Result: BK Virus not detected log concentration (copies/mL): ??Not detected Assay Range: ??plasma: 3.5-9.6 log copies/mL (3x10^3 - 3.7x1 0^9 copies/mL) Results are reported as log copies/mL. ??Changes of less than 1.0 log between serial samples may not be clinically significant. Methods: Quantitative Real time polymerase chain react ion (PCR) of viral DNA isolated from plasma was performed using the [employer]ik[employer]erve BK Viru s MGB Alert primers(2) and probes (1) an d analyzed on the [employer] Smartcycler. In addition, the ??PCR product sequence i s confirmed using physical properties (melting curve analysis). This test was developed and its performance determined by the [facility] Molecular Pathology Laboratory. It has not been [...] high complexity clinical testi ng. Comment: [VERIFIED DATE]03.23.11 Verified By:Gina Clifton (Electronic Signature) Specimen Anatomical Collection Method Collection Time Receive d Time (Source) Location / / Volume Laterality Blood specimen 03/22/2011 9:17 AM 011 9:03 (specimen) EDT AM EDT Alejo Garnett MD HEMATOLOGY ORDERABLES Performing Organization Address City/State/Z[place] [address] CERNER MILLENNIUM REFLEX LAB-A-DIFF (03/22/2011 9:17 AM EDT) P athologist Signature Neutrophils % 61.6 34.0 - CERNER 71.0 % MILLENNIUM Neutr Abs (ANC) 3.32 1.50 - CERNER 6.30 MILLENNIUM x10(3)/mcL Lymphocytes % 24.9 19.0 - CERNER 53.0 % MILLENNIUM Lymphocytes Abs 1.3 1.0 - 3.6 CERNER x10(3)/mcL MILLENNIUM Monocytes % 9.3 4.0 - 13.0 CERNER % MILLENNIUM Monocyte Abs 0.5 0.2 - 1.0 CERNER x10(3)/mcL MILLENNIUM Eosinophils % 3.5 0.0 - 7.0 CERNER % MILLENNIUM Eosinophils Abs 0.2 0.0 - 0.5 CERNER x10(3)/mcL MILLENNIUM Basophils % 0.7 0.0 - 2.0 CERNER % MILLENNIUM Basophils Abs 0.0 0.0 - 0.2 CERNER x10(3)/mcL MILLENNIUM Immature Gran % 0.00 0.00 - CERNER 0.66 % MILLENNIUM Comment: Immature granulocytes(IG's)percentage an d absolute count will include metamyelocytes, myelocytes, and promyelo cytes. Blood smears from CBCs yielding IG's will be scanned manually for concor dance. If this scan disagrees with the automated IG or if promyelocytes are not ed, a manual differential will be performed. Courtney Gran Abs 0.00 0.00 - 0.05 x10(3)/mcL CER NER MILLENNIUM Specimen Anatomical Collection Method Collection Time Receive d Time (Source) Location / / Volume Laterality Blood specimen 03/22/2011 9:17 AM 08/29/2 011 9:31 (specimen) EDT AM EDT Alejo Garnett MD HEMATOLOGY ORDERABLES Performing Organization Address City/[facility]/ZIP [place] [address] CERNER MILLENNIUM Tacrolimus level (03/22/2011 9:17 AM EDT) P athologist Signature Tacrolimus Lvl 8.3 ng/mL CERNER MILLENNIUM Comment: Trough therapeutic: 5-15 ng/mL Specimen Anatomical Collection Method Collection Time Receive d Time (Source) Location / / Volume Laterality Blood specimen 03/22/2011 9:17 AM 011 (specimen) EDT 11:47 AM EDT Alejo Garnett MD CHEMISTRY ORDERABLES Performing Organization Address City/[facility]/ZIP [place] [address] CERNER MILLENNIUM Reticulocyte Count (03/22/2011 9:17 AM EDT) P athologist Signature Retic Ct % 1.7 0.5 - 2.4 CERNER % MILLENNIUM Retic Ct Abs 0.070 0.027 - CERNER 0.095 MILLENNIUM x10(6)/mcL Immature Retic% 14.9 2.3 - 15.9 CERNER % MILLENNIUM Reticulated Hgb 30.6 28.5 - CERNER 38.9 pg MILLENNIUM Plat Immature % 1.1 0.0 - 7.4 CERNER % MILLENNIUM Specimen Anatomical Collection Method Collection Time Receive d Time (Source) Location / / Volume Laterality Blood specimen 03/22/2011 9:17 AM 011 9:31 (specimen) EDT AM EDT Alejo Garnett MD HEMATOLOGY ORDERABLES Performing Organization Address City/[facility]/ZIP Code Phon e Number [address] CERNER MILLENNIUM (ABNORMAL) CBC (with Diff) (03/22/2011 9:17 AM EDT) athologist Signature WBC 5.4 4.0 - 10.0 CERNER x10(3)/mcL MILLENNIUM RBC 4.16 (L) 4.63 - CERNER 6.08 MILLENNIUM x10(6)/mcL Hemoglobin 12.7 (L) 13.7 - CERNER 17.5 gm/dL MILLENNIUM Hematocrit 39.2 (L) 40.0 - CERNER 51.0 % MILLENNIUM MCV 94.2 (H) 79.0 - CERNER 92.0 fL MILLENNIUM MCH 30.5 25.6 - CERNER 32.2 pg MILLENNIUM MCHC 32.4 32.0 - CERNER 36.5 gm/dL MILLENNIUM Platelets 170 145 - 370 CERNER x10(3)/mcL MILLENNIUM RDWSD 47.8 (H) 35.0 - CERNER 46.0 fL MILLENNIUM RDWCV 14.0 10.9 - CERNER 14.4 % MILLENNIUM MPV 9.0 9.0 - 12.0 CERNER fL MILLENNIUM Specimen Anatomical Collection Method Collection Time Receive d Time (Source) Location / / Volume Laterality Blood specimen 03/22/2011 9:17 AM 011 9:31 (specimen) EDT AM EDT Alejo Garnett MD HEMATOLOGY ORDERABLES Performing Organization Address City/[facility]/ZIP Code Phon e Number [address] [facility] MILLENNIUM Uric acid (03/22/2011 9:17 AM EDT) P athologist Signature Uric Acid 7.1 3.5 - 8.5 CERNER mg/dL [facility] Specimen Anatomical Collection Method Collection Time Receive d Time (Source) Location / / Volume Laterality Blood specimen 03/22/2011 9:17 AM 011 9:31 (specimen) EDT AM EDT Alejo Garnett MD CHEMISTRY ORDERABLES Performing Organization Address City/[facility]/ZIP Code Phon e Number [address] [facility] MILLENNIUM Phosphorus (03/22/2011 9:17 AM EDT) P athologist Signature Phosphorus 3.3 2.5 - 4.5 CERNER mg/dL MILLENNIUM Specimen Anatomical Collection Method Collection Time Receive d Time (Source) Location / / Volume Laterality Blood specimen 03/22/2011 9:17 AM 011 9:31 (specimen) EDT AM EDT Alejo Garnett MD CHEMISTRY ORDERABLES Performing Organization Address City/[facility] Phon e Number [address] CERNER MILLENNIUM Magnesium (03/22/2011 9:17 AM EDT) athologist Signature Magnesium 0.77 0.69 - 1.07 CERNER mmol/L MILLENNIUM Specimen Anatomical Collection Method Collection Time Receive d Time (Source) Location / / Volume Laterality Blood specimen 03/22/2011 9:17 AM 011 9:31 (specimen) EDT AM EDT Alejo Garnett MD CHEMISTRY ORDERABLES Performing Organization Address City/[facility] [place] [address] CERNER MILLENNIUM (ABNORMAL) Comprehensive metabolic panel (non-fasting) (03/22/2011 9:17 AM EDT) P athologist Signature Glucose Lvl 226 (H) 60 - 199 CERNER mg/dL MILLENNIUM Comment: Diabetes: >=200 mg/dL plus symp toms BUN 27 (H) 10 - 20 mg/dL CERNER MILLENNIU M Creatinine 1.59 (H) 0.80 - 1.50 mg/dL CERNER MILL ENNIUM Sodium 135 135 - 145 mmol/L CERNER [...] - 8.3 gm/dL CERNER MIL LENNIUM Albumin 3.8 3.2 - 5.2 gm/dL CERNER MILLENN IUM AST 27 0 - 39 unit/L CERNER MILLENNIU M ALT 29 0 - 55 unit/L CERNER MILLENNIU M Alk Phos 184 (H) 40 - 120 unit/L CERNER MILLENN IUM Total Bilirubin 0.5 0.2 - 1.3 mg/dL CERNER M ILLENNIUM Bili, Direct 0.2 0.0 - 0.3 mg/dL CERNER MILL ENNIUM Estimated GFR 45 (L) >=60 CERNER MILLENNIU M Comment: The [...] Location / / Volume Laterality Blood specimen 03/22/2011 9:17 AM 011 9:31 (specimen) EDT AM EDT Alejo Garnett MD CHEMISTRY ORDERABLES Performing Organization Address City/State/[place] [address] HOLLI BALLARDIUM (ABNORMAL) Lipid panel (fasting) (03/22/2011 9:17 AM EDT) P athologist Signature Chol, Total 97 <=199 mg/dL CERNER DOUGLASENNIUM Comment: Recommendations of the NCEP Adult Treatm ent Panel for the following risk cutoff thresholds for the [place] popul[place] n: Desirable: <200 mg/dL Borderline High: 200-239 mg/dL High: > or = 240 mg/dL Triglycerides 178 (H) <=149 mg/dL HOLLI BALLARD M Comment: Reference Range: Normal triglycerides: ??<150 mg/dL Borderline high: ??150-199 mg/dL High: ??200-499 mg/dL Very high: ??>yp=888 mg/dL SERENA 2001; 285(19):[phone] HDL 23 (L) >=40 mg/dL HOLLI DOUGLASSEHLDONIUM Comment: Reference range: ??Low HDL: ?? < 40 mg/dL ??Normal: ?40-60 mg/dL ??Desirable: > 60 mg/dL SERENA 2001; 285(19):[phone] LDL Cholesterol 38 <=99 mg/dL HOLLI JASON Comment: Reference range: ?? Optimal: ?<100 mg/dL ?? Near Optimal/Above Optimal: ?? 100-1 29 mg/dL ?? Borderline high: ?130-159 mg/dL ?? High: ? 160-189 mg/dL ?? Very high: ?>dy=729 mg/dL SERENA 2001: 285(19):[phone] Chol/HDL Ratio 4.2 ratio HOLLI DOUGLASSHELDONI UM Comment: A Cholesterol to HDL ratio below 4:1 is desirable. ??Studies suggest that increased CAD risk occurs at ratios abov e 5 for females and above 6 for men. ? [place] Heart Association ??(htt p://www.americanheart.org) ? Edna Int Med, 1994; 121:641 ? AM J Med, 1998; 105(1A):48S Specimen Anatomical Collection Method Collection Time Receive d Time (Source) Location / / Volume Laterality Blood specimen 03/22/2011 9:17 AM 011 9:31 (specimen) EDT AM EDT Alejo Garnett MD CHEMISTRY ORDERABLES Performing Organization Address City/[facility]/ZIP Code Phon e Number [address] CERNER MILLENNIUM (ABNORMAL) Reflex Lab-PTH (03/22/2011 9:17 AM EDT) athologist Signature PTH 88 (H) 15 - 65 CERNER pg/mL [facility] Specimen Anatomical Collection Method Collection Time Receive d Time (Source) Location / / Volume Laterality Blood specimen 03/22/2011 9:17 AM 011 9:31 (specimen) EDT AM EDT Alejo Garnett MD CHEMISTRY ORDERABLES Performing Organization Address City/[facility]/ZIP Code Phon e Number [address] CERNER MILLENNIUM (ABNORMAL) Vitamin D2 and D3 25 Hydroxy (03/22/2011 9:17 AM EDT) athologist Signature 25-Hydroxy D2 <4.0 ng/mL [facility] Comment: Test Performed by: [facility] [address] [address] Paradichlorobenzene Tender: Purnima Ayoub, Ph. D. 25-Hydroxy D3 23 ng/mL [facility] Comment: Test Performed by: [place] [address] Paradichlorobenzene Tender: Purnima Ayoub, Ph. D. 25-OH Vit D Total 23 (L) ng/mL [facility] Comment: Interpretation: 10-24 (mild to moderate deficiency) -- REFERENCE VALUE -- 25-HYDROXY D TOTAL (D2+D3) Optimum levels in the normal population are 25-80 Test Performed by: [facility] [address], [place] [address] Paradichlorobenzene Tender: Purnima Ayoub, Ph. D. Specimen Anatomical Collection Method Collection Time Receive d Time (Source) Location / / Volume Laterality Blood specimen 03/22/2011 9:17 AM 011 (specimen) EDT 10:49 AM EDT Alejo Garnett MD CHEMISTRY ORDERABLES Performing Organization Address City/[facility]/ZIP Code Phon e Number [address] CERNER MILLENNIUM Vitamin D 1,25 Dihydroxy (03/22/2011 9:17 AM EDT) athologist Signature Vit D 1,25 32 18 - 64 CERNER pg/mL MILLENNIUM Comment: Test Performed by: [facility] Dpt of Lab Med and Pathology [address] [place] [address] Paradichlorobenzene Tender: Narayan richards III, M.D. Specimen Anatomical Collection Method Collection Time Receive d Time (Source) Location / / Volume Laterality Blood specimen 03/22/2011 9:17 AM 011 (specimen) EDT 10:48 AM EDT Alejo Garnett MD CHEMISTRY ORDERABLES Performing Organization Address City/[facility]/ZIP Code Phon e Number [address] CERNER MILLENNIUM REFLEX LAB-U24 HRS AND VOLUME (03/22/2011 7:00 AM EDT) P athologist Signature Hours 24 hour(s) CERNER Collected MILLENNIUM Urine TV (ml) 3100 mL CERNER MILLENNIUM Specimen Anatomical Collection Method Collection Time Receive d Time (Source) Location / / Volume Laterality Urine specimen 03/22/2011 7:00 AM 011 (specimen) EDT 10:24 AM EDT Karen Chino APRN CHEMISTRY ORDERABLES Performing Organization Address City/[facility]/ZIP [place] [address] CERNER MILLENNIUM URIC ACID, URINE, 24 HOUR (03/22/2011 7:00 AM EDT) athologist Signature U24 Uric Conc 17.8 mg/dL CERNER MILLENNIUM U24 Uric Calc 0.55 0.25 - CERNER 0.80 MILLENNIUM gm/24hr Specimen Anatomical Collection Method Collection Time Receive d Time (Source) Location / / Volume Laterality Urine specimen 03/22/2011 7:00 AM 011 (specimen) EDT 10:24 AM EDT Karen Chino APRN URINE ORDERABLES Performing Organization Address [facility] [place] [address] CERNER MILLENNIUM PHOSPHORUS, URINE, 24 HOUR (03/22/2011 7:00 AM EDT) athologist Signature U24 Phos Conc 29.5 mg/dL CERNER MILLENNIUM U24 Phos Calc 0.9 0.4 - 1.3 CERNER gm/24hr MILLENNIUM Specimen Anatomical Collection Method Collection Time Receive d Time (Source) Location / / Volume Laterality Urine specimen 03/22/2011 7:00 AM 011 (specimen) EDT 10:24 AM EDT Karen Chino APRN URINE ORDERABLES Performing Organization Address [facility] [place] [address] CERNER MILLENNIUM (ABNORMAL) CALCIUM, URINE, 24 HOUR (03/22/2011 7:00 AM EDT) athologist Signature U24 Ca Conc 0.9 mg/dL CERNER MILLENNIUM U24 Ca Calc 27.9 (L) 50.0 - CERNER 300.0 MILLENNIUM mg/24hr Comment: Reference Range: 50.0-300.0 mg/ 24 hour based on diet. Specimen Anatomical Collection Method Collection Time Receive d Time (Source) Location / / Volume Laterality Urine specimen 03/22/2011 7:00 AM 011 (specimen) EDT 10:24 AM EDT Karen Chino APRN URINE ORDERABLES Performing Organization Address City/[facility]/ZIP [place] [address] CERNER MILLENNIUM (ABNORMAL) PROTEIN, URINE, 24 HOUR (03/22/2011 7:00 AM EDT) Analysis Performed At Patho logist Time Signature U24 Prot Conc 7 <=80 mg/dL CERNER MILLENNIUM U24 Prot Calc 0.22 (H) <=0.15 CERNER gm/24hr MILLENNIUM Specimen Anatomical Collection Method Collection Time Receive d Time (Source) Location / / Volume Laterality Urine specimen 03/22/2011 7:00 AM 011 (specimen) EDT 10:24 AM EDT Karen Chino APRN URINE ORDERABLES Performing Organization Address City/[facility]/ZIP Code [facility] [place] [address] CERNER MILLENNIUM (ABNORMAL) CREATININE CLEARANCE, URINE , 24 HOUR (03/22/2011 7:00 AM EDT) P athologist Signature Creat 83 (L) 90 - 139 CERNER Clearance mL/min MILLENNIUM U24 Creat Conc 61 mg/dL CERNER MILLENNIUM U24 Creat Calc 1.89 0.80 - CERNER 1.90 MILLENNIUM gm/24hr Specimen Anatomical Collection Method Collection Time Receive d Time (Source) Location / / Volume Laterality Urine specimen 03/22/2011 7:00 AM 011 (specimen) EDT 10:24 AM EDT Karen Chino APRN URINE ORDERABLES Performing Organization Address City/State/ZIP Code [facility] [place] [address] CERNER MILLENNIUM documented in this encounter Visit Diagnoses Diagnosis Transplant kidney Kidney replaced by transplant Poisoning by antineoplastic and immunosu ppressive drugs(963.1) Poisoning by antineoplastic and immunosu ppressive drugs documented in this encounter Care Teams Director Of Informatics Relationship Specialty Start Date End Date Suhas Chowdhury MD PCP - General 06/16/10 05/19/11 [address] [place] [address] documented as of this encounter
--- OUTSIDE RECORDS SUMMARY | 2022-05-24 11:01 | XMS_ITS | Encounter Summary ---
:1955 Author Organization [facility] [place] [address] Care Team Providers Name Role Phone Suhas Chowdhury MD Primary Care Provider Reason for Visit Reason Comments Wound Check right ankle Encounter Details Date Type Department Care Team Description 03/18/2011 Follow-Up Orthopaedics at [facility], DR CRISTIAN Olsen, below knee; [facility] Giovana tyler Charcot's arthropathy, diabe tatiana, R; [place] [address] Diabetes mellitus with neuro mendy; [phone] Wound Social History Tobacco Use Types Packs/Day Years Used Date Former Smoker Cigarettes 2 Quit: 01/19/19 93 Smokeless Tobacco: Never Used Alcohol Use Standard Drinks/Week Comments Not Asked 0 (1 standard drink = 0.6 oz pure alcoho l) Sex Assigned at Date Recorded Not on file documented as of this encounter Progress Notes Lizzy Pennington RN - 03/18/2011 1:44 PM EDT LOWER EXTREMITY NURSE VISIT Problem: left medial malleolar ulceration. ??? Diabetes mellitus with neuropathy [250.60DQ] 02/16/2011 ??? Charcot's arthropathy, diabetic, R [250.60HA] 02/16/2011 ??? CIS - Amputated below knee [] 08/02/2006 ??? CIS - Diabetes mellitus, adult onset, with renal manifestation [] 08/02/2006 ??? CIS - End stage renal disease [] 08/02/2006 Subjective: I think things are better. The stump is all cleared up too. I changed the sock and theliner too then everything cleared up . Objective: Patient arrived to clinic in a wheelchair accompanied by his mother and sister and brother in law. The cast last applied is clean and dry. The medial malleolar ulcer is superficial and measures 11mm x 17mm x 0mm. No change from last visit. The wound edges are lightly macerated. The wound bed is full of healthy granulation but there is a thin mucoid layer noted today that clears with rigorous cleansing. There is no redness or warmth noted. Leg swelling is improved. He is and has been afebrile. Blood sugar was 186 last night but he ate a high simple cho snack in the late afternoon. Procedure: Wound washed with Hibiclenz, rinsed with nss and dried thoroughly. The wound was dressed with Acticoat the Iodosorb and covered with Mepilex border. He was then placed back into a total contact cast. Plan: He will call us with any fever, calf pain or constitutional problems. documented in this encounter Plan of Treatment Upcoming Encounters Date Type Specialty Care Team Description 05/26/2022 Office Visit Otolaryngology Ricardo Panda PA [facility] [place] [address] ( gregg) 06/02/2022 Infusion Hematology and Oncology 06/16/2022 Infusion Hematology and Oncology 06/21/2022 Office Visit Neurology Tyler Rojas MD [facility] Neurology [place], [place] [phone] (Wo rk) 06/30/2022 Infusion Hematology and Oncology 07/14/2022 Infusion Hematology and Oncology 07/28/2022 Infusion Hematology and Oncology 08/11/2022 Infusion Hematology and Oncology 11/04/2022 Office Visit Rheumatology Dante Freedman PA [facility] [place]HEUMATOLOGY [place], [place] [address] (Oscar escobedo) documented as of this encounter Visit Diagnoses Diagnosis Amputee, below knee Lower limb amputation, below knee Charcot's arthropathy, diabetic, R 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
--- OUTSIDE RECORDS SUMMARY | 2022-05-24 11:01 | XMS_ITS | Encounter Summary ---
:1955 Author Organization [facility] Address [facility] [address] Care Team Providers Name Role Phone Candido Jenkins MD Primary Care Provider Encounter Details Date Type Department Care Team Description 06/04/2011 Hospital Encounter Laboratory Narayan Roy Open wound of right ankle; [facility] MD Abi Diabetes mellitus with neuropathy; Drive [facility] MEDICAL Pre-op testing [facility] [id number] ORTHOPAEDIC [phone] SURGERY [place] [id number] Social History Tobacco Use Types Packs/Day Years [...] (NOVOLOG) Inject 3-12 Units 20 mL 3 12/07/201011/08/2011 100 unit/mL pen subcutaneously 4 injection times daily. losartan (COZAAR) 50 mg Take 1 tablet by 30 tablet 11 201010/31/2014 tabletIndications: HTN mouth daily. (hypertension) senna-docusate Take 1-4 tablets by 60 tablet 1 06/24/2011 0 03/17/2012 (PERICOLACE) 8.6-50 mg mouth 2 times daily per tablet as needed for Constipation. Cholecalciferol, Vitamin Take by mouth. 0 06/24/2011 D3, (VITAMIN D) 1,000 unit Tab CINNAMON BARK (CINNAMON Take 1 capsule by 0 06/24/2011 ORAL) mouth daily. moxifloxacin (AVELOX) Take 1 tablet by 7 tablet 0 05/12/20 11 06/24/2011 400 mg mouth daily. tabletIndications: Puncture wound of thumb, left CELLCEPT 250 mg Take 2 capsules by 120 capsule 11 04/14/2011 06/24/2011 capsuleIndications: mouth 2 times daily. Transplant kidney Propranolol (INDERAL LA) Take 1 capsule by 180 capsule 0 01/201108/23/2011 160 mg CR mouth 2 times daily. capsuleIndications: Tremor, essential folic acid (FOLVITE) 1 Take 2 mg by mouth 0 02/03/2017 mg tablet daily. glucagon, human Inject as directed 0 1 08/25/2010 recombinant, 1 mg as needed. injection insulin NPH human recomb Inject 0 06/24/2011 (HUMULIN;NOVOLIN) 100 subcutaneously. 70 unit/mL injection QAM and 40 QPM unit(s) SQ Twice daily insulin regular human Inject 0 07/2010 (HUMULIN;NOVOLIN) 100 subcutaneously. unit/mL vial injection 30-40 Unit(s)before meals SQ Twice daily losartan (COZAAR) 50 mg Take 1 tablet by 30 tablet 11 201006/24/2011 tabletIndications: HTN mouth daily. (hypertension) simvastatin (ZOCOR) 10 Take 1 tablet by 30 tablet 11 011 03/17/2015 mg tabletIndications: mouth nightly. Hypercholesteremia PROGRAF 1 mg Take 1 capsule by 180 capsule 3 03/24/20112 07/2011 capsuleIndications: mouth 2 times daily. Transplant kidney fluticasone (FLONASE) 50 1 spray by Each Nare 0 08/29/2012 mcg/Actuation nasal route as needed. spray aspirin 81 mg EC tablet Take 81 mg by mouth 0 06/24/2011 daily. montelukast (SINGULAIR) Take 10 mg by mouth 0 05/27/2021 10 mg tablet daily. multivitamin (THERAGRAN) Take 1 tablet by 0 06/24/2011 tablet mouth daily. omeprazole (PRILOSEC) 40 Take 40 mg by mouth 0 02/03/2017 mg capsule daily. documented as of this encounter Plan of Treatment Upcoming Encounters Date Type Specialty Care Team Description 05/26/2022 Office Visit Otolaryngology Ricardo Panda PA [facility] [address] [place], [place] [address] (Wo rk) 06/02/2022 Infusion Hematology and Oncology 06/16/2022 Infusion Hematology and Oncology 06/21/2022 Office Visit Neurology Tyler Rojas MD [facility] Neurology [place], [place] [phone] (Wo rk) 06/30/2022 Infusion Hematology and Oncology 07/14/2022 Infusion Hematology and Oncology 07/28/2022 Infusion Hematology and Oncology 08/11/2022 Infusion Hematology and Oncology 11/04/2022 Office Visit Rheumatology Dante Freedman PA [facility] RHEUMATOLOGY [place], [place] [address] (Wo rk) documented as of this encounter Procedures Procedure Name Priority Date/Time Associated Comments Diagnosis DIFFERENTIAL, Routine 06/04/2011 1:16 PM Results for this AUTOMATED EST procedure are i n the results section. ABO/RH TYPING Routine 06/04/2011 1:16 PM Results for this EST procedure are i n the results section. CBC (WITH DIFF) Routine 06/04/2011 1:16 PM Open wound of right Results for this EST ankle procedure are in Diabetes mellitus the result s with neuropathy section. ANTIBODY SCREEN Routine 06/04/2011 1:16 PM Result s for this EST procedure are i n the results section. HEMOGLOBIN A1C Routine 06/04/2011 1:16 PM Pre-op testing Resul ts for this EST procedure are i n the results section. BASIC METABOLIC Routine 06/04/2011 1:16 PM Open wound of right Results for this PANEL (NON-FASTING) EST ankle procedure are in Diabetes mellitus the result s with neuropathy section. TYPE AND SCREEN, SDP Routine 06/04/2011 12:44 PM Open wound of right (FUTURE SURGERY, EST ankle [facility] SAME DAY Diabetes mellitus PROGRAM ONLY) with neuropathy documented in this encounter Results DIFFERENTIAL, AUTOMATED (06/04/2011 1:16 PM EST) P athologist Signature Neutrophils % 54.7 34.0 - CERNER 71.0 % MILLENNIUM Neutr Abs (ANC) 4.11 1.50 - CERNER 6.30 MILLENNIUM x10(3)/mcL Lymphocytes % 29.2 19.0 - CERNER 53.0 % MILLENNIUM Lymphocytes Abs 2.2 1.0 - 3.6 CERNER x10(3)/mcL MILLENNIUM Monocytes % 10.9 4.0 - 13.0 CERNER % MILLENNIUM Monocyte Abs 0.8 0.2 - 1.0 CERNER x10(3)/mcL MILLENNIUM Eosinophils [...] EST PM EST Narayan Roy Jr., MD HEMATOLOGY ORDERABLES Performing Organization Address City/State/ZIP Code Phon [place] [address] CERDINH MÉNDEZ (ABNORMAL) Hemoglobin A1c (06/04/2011 1:16 PM EST) Analysis Performed At [facility] Time Signature Hemoglobin A1C 7.5 (H) 4.3 - 6.1 CERNER % MILLENNIUM Est Avg Gluc 169 mg/dL CERNER [facility] Comment: eAG equivalents for HbA1c percentages: HbA1c(%) ?eAG(mg/dL) 6.0 ?126 6.5 ?140 7.0 ?154 7.5 ?169 8.0 ?183 8.5 ?197 9.0 ?212 9.5 ?226 10.0 ? 240 Limitations: The eAG calculation has not been validated on women, individuals below 18 years old and above 70 years old, and individuals with hemoglobinopathies. Additional resources are available on [facility] ADA website: ??http://professional.diabetes.org/gluc osecalculator.aspx Reference: Scooby MALDONADO, Nba J, Sydnee R, et al. ??Tr anslating the A1C assay into estimated average glucose values. ??Diabetes Care 2008:31(8):8528-5670. Specimen Anatomical Collection Method Collection Time Receive d Time (Source) Location / / Volume Laterality Blood specimen 06/04/2011 1:16 PM 011 1:24 (specimen) EST PM EST Narayan Roy Jr., MD CHEMISTRY ORDERABLES Performing Organization Address City/State/ZIP [place] [address] HOLLI BALLARDIUM ANTIBODY SCREEN (06/04/2011 1:16 PM EST) Analysis Performed At Patho logist Time Signature Ab Screen Negative CERNER Interp [facility] Expires at [id number] [facility] 235 on: MILLENNIUM Specimen Anatomical Collection Method Collection Time Receive d Time (Source) Location / / Volume Laterality Blood specimen 06/04/2011 1:16 PM 011 1:24 (specimen) EST PM EST Narayan Roy Jr., MD BLOOD BANK ORDERABLES Performing Organization Address City/[facility]/[place] [address] [facility] ABO/RH TYPING (06/04/2011 1:16 PM EST) P athologist Signature ABORh Type O Pos [facility] Specimen Anatomical Collection Method Collection Time Receive d Time (Source) Location / / Volume Laterality Blood specimen 06/04/2011 1:16 PM 011 1:24 (specimen) EST PM EST Narayan Roy Jr., MD BLOOD BANK ORDERABLES Performing Organization Address City/[facility] [place] [address] [facility] (ABNORMAL) Basic Metabolic Panel (non-fasting) (06/04/2011 1:16 PM EST) athologist [facility] Glucose Lvl 181 60 - 199 CERNER mg/dL [facility] Comment: Diabetes: >=200 mg/dL plus symp toms BUN 29 (H) 10 - 20 mg/dL CERNER MILLENNIU M Creatinine 1.67 (H) 0.80 - 1.50 mg/dL CERNER MILL ENNIUM Sodium 135 135 - 145 mmol/L CERNER OMKAR NIUM Potassium 5.3 (H) 3.5 - 5.0 mmol/L CERNER OMKAR [...] Anion Gap 7 5 - 15 mmol/L HOLLI IVEYU M Calcium 10.0 8.5 - 10.5 mg/dL HOLLI ESPITIA NIUM Estimated GFR 42 (L) >=60 HOLLI IVEYU James Comment: The National Kidney Disease Education Pr [...] Organization Address City/State/[place] [address] [facility] (ABNORMAL) CBC (with Diff) (06/04/2011 1:16 PM EST) athologist Signature WBC 7.5 4.0 - 10.0 CERNER x10(3)/mcL MILLENNIUM RBC 4.26 (L) 4.63 - CERNER 6.08 MILLENNIUM x10(6)/mcL Hemoglobin 12.9 (L) 13.7 - CERNER 17.5 gm/dL MILLENNIUM Hematocrit 41.2 40.0 - CERNER 51.0 % MILLENNIUM MCV 96.7 (H) 79.0 - CERNER 92.0 fL MILLENNIUM MCH 30.3 25.6 - CERNER 32.2 pg MILLENNIUM MCHC 31.3 (L) 32.0 - CERNER 36.5 gm/dL MILLENNIUM Platelets 195 145 - 370 CERNER x10(3)/mcL MILLENNIUM RDWSD 48.4 (H) 35.0 - CERNER 46.0 fL MILLENNIUM RDWCV 13.7 10.9 - CERNER 14.4 % MILLENNIUM MPV 8.7 (L) 9.0 - 12.0 CERNER fL MILLENNIUM Specimen Anatomical Collection Method Collection Time Receive d Time (Source) Location / / Volume Laterality Blood specimen 06/04/2011 1:16 PM 011 1:24 (specimen) EST PM EST Narayan Roy Jr., MD HEMATOLOGY ORDERABLES Performing Organization Address City/State/[place] [address] [facility] documented in this encounter Visit Diagnoses Diagnosis Open wound of right ankle Open wound of knee, leg (except thigh), and ankle, without mention of complication Diabetes mellitus with neuropathy Type II or unspecified type diabetes fredo litus with neurological manifestations, not stated as uncontrolled Pre-op testing Preoperative examination, unspecified documented in this encounter Care Teams Knot Cutter Relationship Specialty Start Date End Date Candido Jenkins MD PCP - General 05/20/11 04/01/13 [address] [place] [address] documented as of this encounter
--- OUTSIDE RECORDS SUMMARY | 2022-05-24 11:01 | XMS_ITS | Encounter Summary ---
:1955 Author Organization [facility] [place] [address] Care Team Providers Name Role Phone Suhas Chowdhury MD Primary Care Provider Reason for Visit Reason Onset Date Comments Labs Only 01/21/2011 Encounter Details Date Type Department Care Team Description 01/21/2011 Telephone Endocrinology at [facility] Margaret Sawyer APRN Labs Only [facility] [place] [address] ENDOCRINOLOGY DEPT. [phone] [place], [place] [address] (Wo rk) Social History Tobacco Use Types Packs/Day Years Used Date Former Smoker Cigarettes 2 Quit: 01/19/19 93 Smokeless Tobacco: Never Used Alcohol Use Standard Drinks/Week Comments Not Asked 0 (1 standard drink = 0.6 oz pure alcoho l) Sex Assigned at Date Recorded Not on file documented as of this encounter Miscellaneous Notes Telephone Encounter - Margaret Sawyer APRN - 01/25/2011 7:47 PM EDT lab documented in this encounter Plan of Treatment Upcoming Encounters Date Type Specialty Care Team Description 05/26/2022 Office Visit Otolaryngology Ricardo Panda PA [facility] [place], [place] [address] (Wo rk) 06/02/2022 Infusion Hematology and Oncology 06/16/2022 Infusion Hematology and Oncology 06/21/2022 Office Visit Neurology Tyler Rojas MD [facility] er Neurology [place], [place] [phone] (Wo rk) 06/30/2022 Infusion Hematology and Oncology 07/14/2022 Infusion Hematology and Oncology 07/28/2022 Infusion Hematology and Oncology 08/11/2022 Infusion Hematology and Oncology 11/04/2022 Office Visit Rheumatology Dante Freedman PA [facility] RHEUMATOLOGY [place], [place] [address] (Wo rk) documented as of this encounter Results (ABNORMAL) Basic metabolic panel (02/17/2011 11:36 AM [...] Hernandez MD CHEMISTRY ORDERABLES Performing Organization Address City/[facility] [place] [address] [facility]IUM TSH (02/17/2011 11:36 AM EDT) P athologist Signature TSH 2.28 0.27 - 4.20 CERNER mcIU/mL MILLENNIUM Specimen Anatomical Collection Method Collection Time Receive d Time (Source) Location / / Volume Laterality Blood specimen 02/17/2011 11:36 1 (specimen) AM EDT 11:50 AM EDT Donell Heranndez MD CHEMISTRY ORDERABLES Performing Organization Address City/[facility]/[place]IP [place] [address] [facility] TransferGoENNIUM (ABNORMAL) Hemoglobin A1c (02/17/2011 11:36 AM EDT) Analysis Performed At [facility] Time Signature Hemoglobin A1C 8.5 (H) 4.3 - 6.1 [facility] Est Avg Gluc 197 mg/dL [facility] Comment: eAG equivalents for HbA1c percentages: HbA1c(%) ?eAG(mg/dL) 6.0 ?126 6.5 ?140 7.0 ?154 7.5 ?169 8.0 ?183 8.5 ?197 9.0 ?212 9.5 ?226 10.0 ? 240 Limitations: The eAG calculation has not been validated on women, individuals below 18 years old and above 70 years old, and individuals with hemoglobinopathies. Additional resources are available on [facility] ADA website: ??http://professional.diabetes.org/gluc osecalculator.aspx Reference: Scooby MALDONADO, Nba J, Sydnee R, et al. ??Tr anslating the A1C assay into estimated average glucose values. ??Diabetes Care 2008:31(8):7795-5437. Specimen Anatomical Collection Method Collection Time Receive d Time (Source) Location / / Volume Laterality Blood specimen 02/17/2011 11:36 1 (specimen) AM EDT 11:50 AM EDT Donell Hernandez MD CHEMISTRY ORDERABLES Performing Organization Address City/State/ZIP Code Phon e Number [place] [phone] [facility] documented in this encounter Visit Diagnoses Diagnosis Diabetes - Primary Type II or unspecified type diabetes fredo litus without mention of complication, not stated as uncontrolled documented in this encounter Care Teams Graining Machine Operator Relationship Specialty Start Date End Date Suhas Chowdhury MD PCP - General 06/16/10 05/19/11 [address] [place] [address] documented as of this encounter
--- OUTSIDE RECORDS SUMMARY | 2022-05-24 11:01 | XMS_ITS | Encounter Summary ---
:1955 Author Organization [facility] [place] [address] Care Team Providers Name Role Phone Suhas Chowdhury MD Primary Care Provider Encounter Details Date Type Department Care Team Description 04/26/2011 Hospital [facility], [address] [place] [address] [place] [address] Social History Tobacco Use Types Packs/Day [...] Sig Dispensed Refills Start Date End Date CELLCEPT 250 mg Take 2 capsules 120 capsule 11 04/14/201107/2010 capsuleIndications: by mouth 2 times Transplant kidney daily. Propranolol (INDERAL LA) Take 1 capsule 180 capsule 0 201008/23/2011 160 mg CR by mouth 2 times capsuleIndications: Tremor, daily. essential folic acid (FOLVITE) 1 mg Take 2 mg by 0 02/03/2017 tablet mouth daily. glucagon, human Inject as 0 1 recombinant, 1 mg injection directed as needed. insulin NPH human recomb Inject 0 06/24/2011 (HUMULIN;NOVOLIN) 100 subcutaneously. unit/mL injection 70 QAM and 40 QPM unit(s) SQ Twice daily insulin regular human Inject 0 07/2010 (HUMULIN;NOVOLIN) 100 subcutaneously. unit/mL vial injection 30-40 Unit(s)before meals SQ Twice daily losartan (COZAAR) 50 mg Take 1 tablet by 30 tablet 11 201006/24/2011 tabletIndications: HTN mouth daily. (hypertension) simvastatin (ZOCOR) 10 mg Take 1 tablet by 30 tablet 11 02/2403/17/2015 tabletIndications: mouth nightly. Hypercholesteremia PROGRAF 1 mg Take 1 capsule 180 capsule 3 03/24/2011 012 capsuleIndications: by mouth 2 times Transplant kidney daily. fluticasone (FLONASE) 50 1 spray by Each 0 08/29/2012 mcg/Actuation nasal spray Nare route as needed. aspirin 81 mg EC tablet Take 81 mg by 0 06/24/2011 mouth daily. montelukast (SINGULAIR) 10 Take 10 mg by 0 05/27/2021 mg tablet mouth daily. multivitamin (THERAGRAN) Take 1 tablet by 0 06/24/2011 tablet mouth daily. omeprazole (PRILOSEC) 40 mg Take 40 mg by 0 02/03/2017 capsule mouth daily. Dextromethorphan-Guaifenesi Take by mouth 0 06/04/2011 n (DIABETIC TUSSIN DM) nightly. 10-100 mg/5 mL Liqd documented as of this encounter Plan of Treatment Upcoming Encounters Date Type Specialty Care Team Description 05/26/2022 Office Visit Otolaryngology Ricardo Panda PA [facility] Dr [place], [place] [address] (Wo rk) 06/02/2022 Infusion Hematology and Oncology 06/16/2022 Infusion Hematology and Oncology 06/21/2022 Office Visit Neurology Tyler Rojas MD [facility] Neurology [place], [place] [phone] (Wo rk) 06/30/2022 Infusion Hematology and Oncology 07/14/2022 Infusion Hematology and Oncology 07/28/2022 Infusion Hematology and Oncology 08/11/2022 Infusion Hematology and Oncology 11/04/2022 Office Visit Rheumatology Dnate Freedman PA [facility] RHEUMATOLOGY [place], [place] [address] (Wo rk) documented as of this encounter Procedures Procedure Name Priority Date/Time Associated Diagnosis Comme nts XR ANKLE MINIMUM 3 Routine 04/26/2011 10:50 AM Charcot's Re sults for this VIEWS EDT arthropathy, procedure are i n diabetic the results section. documented in this encounter Results XR ankle minimum 3 [...] encounter Visit Diagnoses Diagnosis Charcot's arthropathy, diabetic Type II or unspecified type diabetes fredo litus with neurological manifestations, not stated as uncontrolled documented in this encounter Care Teams Consulting Business Developer Relationship Specialty Start Date End Date Suhas Chowdhury MD PCP - General 06/16/10 05/19/[address] [place], [place] [address] documented as of this encounter
--- OUTSIDE RECORDS SUMMARY | 2022-05-24 11:01 | XMS_ITS | Encounter Summary ---
:1955 Author Organization [facility] [place] [address] Care Team Providers Name Role Phone Suhas Chowdhury MD Primary Care Provider Reason for Visit Reason Comments Right Leg Pain diabetes mellitus / charcot foot Encounter Details Date Type Department Care Team Description 01/19/2011 Follow-Up Orthopaedics at [facility], DR FOSTER Venous stasis ulcers [facility] Giovana tyler (Primary Dx) [place] [address] Social History Tobacco Use Types Packs/Day [...] - - Weight 140.6 kg (310 lb) 01/19/2011 9:41 AM EDT Height 193 cm (6' 4) 01/19/2011 9:41 AM EDT Body Mass Index 37.73 01/19/2011 9:41 AM EDT documented in this encounter Progress Notes Nikolay Montez MD - 01/19/2011 10:34 AM EDT DIAGNOSES: Left below-knee amputation, right foot Charcot arthropathy with venous stasis ulceration leg, current treatment Unna boots. SUBJECTIVE: Mr. Torres returns today. He states that he was not able to get treatment from the visiting nurses, but in fact went to physical therapist, Bogdan Seble, where he has had twice weekly Unna boot changes. He has made good progress there. He reports that blood sugar this morning was 154/ hemoglobin A1c was 8.0. OBJECTIVE: Indeed the patient's ulcerations are completely healed, edema is under excellent control,still evidence of venous stasis ulcerations noted. ASSESSMENT: Excellent progress with Unna boot application. PLAN: Another Unna boot was applied today. He is going to be back to Mr. Pruett's facility on Tuesday for follow up with his lymphedema specialist, who will be measuring for a compression garment of 20 to 30 mm pressure. We will see him back here in about four weeks for evaluation, once the compression garment comes Unna boot changes can be terminated. documented in this encounter Plan of Treatment Upcoming Encounters Date Type Specialty Care Team Description 05/26/2022 Office Visit Otolaryngology Ricardo Panda PA [facility] Dr [place], [place] [address] (Wo rk) 06/02/2022 Infusion Hematology and Oncology 06/16/2022 Infusion Hematology and Oncology 06/21/2022 Office Visit Neurology Tyler Rojas MD [facility] Neurology [place], [place] [phone] (Wo rk) 06/30/2022 Infusion Hematology and Oncology 07/14/2022 Infusion Hematology and Oncology 07/28/2022 Infusion Hematology and Oncology 08/11/2022 Infusion Hematology and Oncology 11/04/2022 Office Visit Rheumatology Dante Freedman PA [facility] RHEUMATOLOGY [place], [place] [address] (Wo rk) documented as of this encounter Visit Diagnoses Diagnosis Venous stasis ulcers - Primary Varicose veins of lower extremities with ulcer documented in this encounter Care Teams Advertising Specialist Relationship Specialty Start Date End Date Suhas Chowdhury MD PCP - General 06/16/10 05/19/[address] [place] [address] documented as of this encounter
--- OUTSIDE RECORDS SUMMARY | 2022-05-24 11:01 | XMS_ITS | Encounter Summary ---
:1955 Author Organization [facility] [place] [address] Care Team Providers Name Role Phone Suhas Chowdhury MD Primary Care Provider Encounter Details Date Type Department Care Team Description 04/15/2011 Abstract Solid Organ Transplant at Karen Jones APRN [facility] Giovana tyler [place] [address] [place] [address] [phone] (Wo rk) Social History Tobacco Use Types [...] Panda PA [facility] Dr [place], [place] [address] (Wo rk) 06/02/2022 Infusion Hematology and Oncology 06/16/2022 Infusion Hematology and Oncology 06/21/2022 Office Visit Neurology Tyler Rojas MD [facility] Neurology [place], [place] [phone] (Wo rk) 06/30/2022 Infusion Hematology and Oncology 07/14/2022 Infusion Hematology and Oncology 07/28/2022 Infusion Hematology and Oncology 08/11/2022 Infusion Hematology and Oncology 11/04/2022 Office Visit Rheumatology Dante Freedman PA [facility] DR CRUZ [place] [address] (Wo rk) documented as of this encounter Visit Diagnoses Not on filedocumented in this encounter Care Teams Wash Helper Relationship Specialty Start Date End Date Suhsa Chowdhury MD PCP - General 06/16/10 05/19/11 [address] [place] [address] documented as of this encounter
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
--- OUTSIDE RECORDS SUMMARY | 2022-05-24 11:01 | XMS_ITS | Encounter Summary ---
:1955 Author Organization [facility] [place] [address] Care Team Providers Name Role Phone Suhas Chowdhury MD Primary Care Provider Reason for Visit Reason Comments Right Foot Pain Encounter Details Date Type Department Care Team Description 03/11/2011 Follow-Up Orthopaedics at [facility], DR CRISTIAN Olsen, below knee; [facility] Giovana tyler Charcot's arthropathy, diabe tatiana, R; [place] [address] Diabetes mellitus with neuro mendy; [phone] Wound; Type II diabete s mellitus with renal [...] encounter Progress Notes Lizzy Pennington RN - 03/11/2011 10:21 AM EDT LOWER EXTREMITY NURSE VISIT Problem: left medial malleolar ulceration. ??? Diabetes mellitus with neuropathy [250.60DQ] 02/16/2011 ??? Charcot's arthropathy, diabetic, R [250.60HA] 02/16/2011 ??? CIS - Amputated below knee [] 08/02/2006 ??? CIS - Diabetes mellitus, adult onset, with renal manifestation [] 08/02/2006 ??? CIS - End stage renal disease [] 08/02/2006 Subjective: I have a little soreness behind my knee on the left leg but the casted leg is good. Objective: Patient arrived to clinic in a wheelchair accompanied by his mother and sister. The cast last applied is clean and dry. The medial malleolar ulcer is superficial and measures 11mm x 17mm x 0mm. The wound edges are lightly macerated. The wound bed is full of healthy granulation. There is no redness or warmth noted. Appreciate a small moist bump behind his left knee. He thinks it started to bother him 2-3 days ago.He has been up on his leg working outside more than usual for him but can not recall other changes. Drainage is thin and serous. Blood sugar was 230 last pm. He ate only 1/2 of his pm meal but had biscuits and berries with cream before bed. He is and has been afebrile. Procedure: Wound washed with Hibiclenz, rinsed with nss and dried thoroughly. The wound was dressed with Iodosorb and covered with Mepilex border. He was then placed back into a total contact cast. Patient to contact [facility] to ask about what they suggest to decrease wetness in the gel sleeve. He should begin to schedule in time throughout the day for sitting without the prosthesis on to allow for drying. Plan: He will call us with any fever, calf pain or constitutional problems. We will plan to see him back on the ( he requested to come back on a day he was already scheduled to be at the hospital) for cast off, wound check and cast back on. documented in this encounter Plan of Treatment Upcoming Encounters Date Type Specialty Care Team Description 05/26/2022 Office Visit Otolaryngology Ricardo Panda PA [facility] [address] [place] [address] (Oscar escobedo) 06/02/2022 Infusion Hematology and Oncology 06/16/2022 Infusion Hematology and Oncology 06/21/2022 Office Visit Neurology Tyler Rojas MD [facility] Dr Sofi [place] [address] (Oscar escobedo) 06/30/2022 Infusion Hematology and Oncology 07/14/2022 Infusion Hematology and Oncology 07/28/2022 Infusion Hematology and Oncology 08/11/2022 Infusion Hematology and Oncology 11/04/2022 Office Visit Rheumatology Dante Freedman PA [facility] DR CRUZ [place], [place] [address] (Wo rk) documented as of this encounter Visit Diagnoses Diagnosis Amputee, below knee Lower limb amputation, below knee Charcot's arthropathy, diabetic, R Type II or unspecified type diabetes fredo litus with neurological manifestations, not stated as uncontrolled Wound Injury, other and unspecified, unspecifi ed site 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
--- OUTSIDE RECORDS SUMMARY | 2022-05-24 11:02 | XMS_ITS | Encounter Summary ---
:1955 Author Organization [facility] [place] [address] Care Team Providers Name Role Phone Suhas Chowdhury MD Primary Care Provider Encounter Details Date Type Department Care Team Description 08/13/2010 Follow-Up Neurology at [facility] Angel Boyd MD [facility] [address] NEUROLOGY DEPT. [phone] [place], [place] [address] (Wo rk) Social History Tobacco Use Types Packs/Day Years Used Date Never Assessed Sex Assigned at Date Recorded Not on file documented as of this encounter Plan of Treatment Upcoming Encounters Date Type Specialty Care Team Description 05/26/2022 Office Visit Otolaryngology Ricardo Panda PA [facility] Dr [place] [address] (Wo rk) 06/02/2022 Infusion Hematology and Oncology 06/16/2022 Infusion Hematology and Oncology 06/21/2022 Office Visit Neurology Tyler Rojas MD [facility] Dr Sofi [place], [place] [phone] (Wo rk) 06/30/2022 Infusion Hematology and Oncology 07/14/2022 Infusion Hematology and Oncology 07/28/2022 Infusion Hematology and Oncology 08/11/2022 Infusion Hematology and Oncology 11/04/2022 Office Visit Rheumatology Dante Freedman PA [facility] RHEUMATOLOGY [place], [place] [address] (Wo rk) documented as of this encounter Visit Diagnoses Not on filedocumented in this encounter Care Teams Preparation Supervisor Canning Relationship Specialty Start Date End Date Suhas Chowdhury MD PCP - General 06/16/10 05/19/11 [address] [place] [address] documented as of this encounter
--- OUTSIDE RECORDS SUMMARY | 2022-05-24 11:02 | XMS_ITS | Encounter Summary ---
:1955 Author Organization [place] [address] Care Team Providers Name Role Phone Suhas Chowdhury MD Primary Care Provider Encounter Details Date Type Department Care Team Description 07/21/2010 Follow-Up Orthopaedics [facility], DR CRISTIAN [facility] Nikolay Menchaca MD [facility] [place] [address] [place] [address] Social History Tobacco Use Types Packs/Day Years Used Date Never Assessed Sex Assigned at Date Recorded Not on file documented as of this encounter Plan of Treatment Upcoming Encounters Date Type Specialty Care Team Description 05/26/2022 Office Visit Otolaryngology Ricardo Panda PA [facility] er [place], [place] [address] (Wo rk) 06/02/2022 Infusion Hematology and Oncology 06/16/2022 Infusion Hematology and Oncology 06/21/2022 Office Visit Neurology Tyler Rojas MD [facility] Neurology [place], [place] [address] (Wo rk) 06/30/2022 Infusion Hematology and Oncology 07/14/2022 Infusion Hematology and Oncology 07/28/2022 Infusion Hematology and Oncology 08/11/2022 Infusion Hematology and Oncology 11/04/2022 Office Visit Rheumatology Dante Freedman PA [facility] RHEUMATOLOGY [place], [place] [address] (Wo rk) documented as of this encounter Visit Diagnoses Not on filedocumented in this encounter Care Teams Court Liaison Relationship Specialty Start Date End Date Suhas Chowdhury MD PCP - General 06/16/10 05/19/11 [address] [place] [address] documented as of this encounter
--- OUTSIDE RECORDS SUMMARY | 2022-05-24 11:02 | XMS_ITS | Encounter Summary ---
:1955 Author Organization [facility] [place] [address] Care Team Providers Name Role Phone Suhas Chowdhury MD Primary Care Provider Encounter Details Date Type Department Care Team Description 09/09/2010 Follow-Up Endocrinology at [facility] Karine Antonio, [facility] D [facility] [place] [address] ENDOCRINOLOGY DEPT. [phone] [place], [place] [address] (Wo rk) Social History Tobacco Use Types Packs/Day Years Used Date Never Assessed Sex Assigned at Date Recorded Not on file documented as of this encounter Plan of Treatment Upcoming Encounters Date Type Specialty Care Team Description 05/26/2022 Office Visit Otolaryngology Ricardo Panda PA [facility] [address] [place] [address] (Wo rk) 06/02/2022 Infusion Hematology and Oncology 06/16/2022 Infusion Hematology and Oncology 06/21/2022 Office Visit Neurology Tyler Rojas MD [facility] Neurology [place], [place] [phone] (Wo rk) 06/30/2022 Infusion Hematology and Oncology 07/14/2022 Infusion Hematology and Oncology 07/28/2022 Infusion Hematology and Oncology 08/11/2022 Infusion Hematology and Oncology 11/04/2022 Office Visit Rheumatology Dante Freedman PA [facility] RHEUMATOLOGY [place], [place] [address] (Wo rk) documented as of this encounter Visit Diagnoses Not on filedocumented in this encounter Care Teams Manager Universal Relationship Specialty Start Date End Date Suhas Chowdhury MD PCP - General 06/16/10 05/19/11 [address] [place] [address] documented as of this encounter
--- OUTSIDE RECORDS SUMMARY | 2022-05-24 11:02 | XMS_ITS | Encounter Summary ---
:1955 Author Organization [facility] [place] [address] Care Team Providers Name Role Phone Suhas Chowdhury MD Primary Care Provider Encounter Details Date Type Department Care Team Description 07/21/2010 Orders Only Lab [facility], [facility] Giovana tyler [place] [address] [place] [address] [phone] (Wo rk) Social History Tobacco Use Types Packs/Day Years Used Date Never Assessed Sex Assigned at Date Recorded Not on file documented as of this encounter Plan of Treatment Upcoming Encounters Date Type Specialty Care Team Description 05/26/2022 Office Visit Otolaryngology Ricardo Panda PA [facility] Dr [place], [place] [address] (Wo rk) 06/02/2022 Infusion Hematology and Oncology 06/16/2022 Infusion Hematology and Oncology 06/21/2022 Office Visit Neurology Tyler Rojas MD [facility] Dr [address] [place], [place] [phone] (Wo rk) 06/30/2022 Infusion Hematology and Oncology 07/14/2022 Infusion Hematology and Oncology 07/28/2022 Infusion Hematology and Oncology 08/11/2022 Infusion Hematology and Oncology 11/04/2022 Office Visit Rheumatology Dante Freedman PA [facility] [address] [place] [phone] (Wo rk) documented as of this encounter Procedures Procedure Name Priority Date/Time Associated Comments Diagnosis U ALBUMIN/CRE RATIO Routine 07/21/2010 9:53 AM Re sults for this EST procedure are i n the results section. TSH NED 07/21/2010 9:53 AM Results f or this EST procedure are i n the results section. HEMOGLOBIN A1C NED 07/21/2010 9:53 AM Results for this EST procedure are i n the results section. documented in this encounter Results TSH (07/21/2010 9:53 AM EST) athologist Signature TSH 2.07 0.27 - 4.20 CERNER mcIU/mL MILLENNIUM Comment: [place] [facility] Blood Reference Range: ??0. 35 23.00 uIU/mL Specimen Anatomical Collection Method Collection Time Receive d Time (Source) Location / / Volume Laterality Blood specimen 07/21/2010 9:53 AM 010 (specimen) EST 10:09 AM EST Margaret Parminder Digna [place] CHEMISTRY ORDERABLES Performing Organization Address City/State/ZIP Code Phon e Number [place] [phone] CERNER MILLENNIUM MICROALBUMIN LEVEL RANDOM URINE (07/21/2010 9:53 AM EST) athologist Signature U Creatinine 49 mg/dL CERNER MILLENNIUM U Albumin Conc, <3.0 mg/L CERNER Random MILLENNIUM Alb/Cr Ratio, <6 mcg/mg Cr CERNER Random [facility]NIUM Comment: Reference Range* Random collection (mcg/mg creatinine) Normal ?<30 Microalbuminuria ?? 30 - 300 Clinical Albuminuria ?? >300 *[place] [employer]. Diabetic Nephropathy. Diabetes Care 1997;(Suppl 1):S24-S27 Exercise within 24 hour, infection, fe darrell, CHF, marked hyperglycemia, and marked hypertension may elevate urinary albumin excretion over baseline values. Specimen Anatomical Collection Method Collection Time Receive d Time (Source) Location / / Volume Laterality Urine specimen 07/21/2010 9:53 AM 12/28/2 010 (specimen) EST 10:09 AM EST Margaret Parminder Digna MEAT PICKLER URINE ORDERABLES Performing Organization Address City/State/ZIP Code Phyllis [place] [address] [facility] (ABNORMAL) HEMOGLOBIN A1C (07/21/2010 9:53 AM EST) Analysis Performed At Patho logist Time Signature Hemoglobin A1C 8.0 (H) 4.3 - 6.1 CERNER % MILLENNIUM Est Avg Gluc 183 mg/dL [facility] Comment: eAG equivalents for HbA1c percentages: HbA1c(%) ?eAG(mg/dL) 6.0 ?126 6.5 ?140 7.0 ?154 7.5 ?169 8.0 ?183 8.5 ?197 9.0 ?212 9.5 ?226 10.0 ? 240 Limitations: The eAG calculation has not been validated on women, individuals below 18 years old and above 70 years old, and individuals with hemoglobinopathies. Additional resources are available on [facility] ADA website: ??http://professional.diabetes.org/gluc osecalculator.aspx Reference: Scooby MALDONADO, Nba J, Sydnee R, et al. ??Tr anslating the A1C assay into estimated average glucose values. ??Diabetes Care 2008:31(8):4523-5735. Specimen Anatomical Collection Method Collection Time Receive d Time (Source) Location / / Volume Laterality Blood specimen 07/21/2010 9:53 AM 010 (specimen) EST 10:09 AM EST Margaret Parminder Digna MEAT PICK[place] CHEMISTRY ORDERABLES Performing Organization Address City/State/[place] [address] [facility] documented in this encounter Visit Diagnoses Not on filedocumented in this encounter Care Teams Drawing Instructor Relationship Specialty Start Date End Date Suhas Chowdhury MD PCP - General 06/16/10 05/19/11 [address] [place] [address] documented as of this encounter
--- OUTSIDE RECORDS SUMMARY | 2022-05-24 11:02 | XMS_ITS | Encounter Summary ---
:1955 Author Organization [facility] [place] [address] Care Team Providers Name Role Phone Suhas Chowdhury MD Primary Care Provider Encounter Details Date Type Department Care Team Description 07/21/2010 Office Visit Endocrinology at [facility] Margaret Ahuja, [facility] [place] [address] [facility] [phone] ENDOCRINOLOGY DE PT. [place], [place] [address] (Wo rk) Social History Tobacco Use Types Packs/Day Years Used Date Never Assessed Sex Assigned at Date Recorded Not on file documented as of this encounter Plan of Treatment Upcoming Encounters Date Type Specialty Care Team Description 05/26/2022 Office Visit Otolaryngology Ricardo Panda PA [facility] [place], [place] [address] (Wo rk) 06/02/2022 Infusion Hematology and Oncology 06/16/2022 Infusion Hematology and Oncology 06/21/2022 Office Visit Neurology Tyler Rojas MD [facility] Dr [address] [place], [place] [phone] (Wo rk) 06/30/2022 Infusion Hematology and Oncology 07/14/2022 Infusion Hematology and Oncology 07/28/2022 Infusion Hematology and Oncology 08/11/2022 Infusion Hematology and Oncology 11/04/2022 Office Visit Rheumatology Dante Freedman PA [facility] RHEUMATOLOGY [place], [place] [address] (Wo rk) documented as of this encounter Visit Diagnoses Not on filedocumented in this encounter Care Teams Instructor [employer] Relationship Specialty Start Date End Date Suhas Chowdhury MD PCP - General 06/16/10 05/19/11 [address] [place] [address] documented as of this encounter
--- OUTSIDE RECORDS SUMMARY | 2022-05-24 11:02 | XMS_ITS | Encounter Summary ---
:1955 Author Organization [facility] [place] [address] Care Team Providers Name Role Phone Suhas Chowdhury MD Primary Care Provider Encounter Details Date Type Department Care Team Description 09/09/2010 Office Visit Endocrinology at [facility] Margaret Ahuja, [facility] [place] [address] [facility] [phone] ENDOCRINOLOGY DE PT. [place], [place] [address] (Wo rk) Social History Tobacco Use Types Packs/Day Years Used Date Never Assessed Sex Assigned at Date Recorded Not on file documented as of this encounter Plan of Treatment Upcoming Encounters Date Type Specialty Care Team Description 05/26/2022 Office Visit Otolaryngology Ricardo Panda PA [facility] [place], [place] [address] (Wo rk) 06/02/2022 Infusion Hematology and Oncology 06/16/2022 Infusion Hematology and Oncology 06/21/2022 Office Visit Neurology Tyler Rojas MD [facility] Dr [address] [place], [place] [phone] (Wo rk) 06/30/2022 Infusion Hematology and Oncology 07/14/2022 Infusion Hematology and Oncology 07/28/2022 Infusion Hematology and Oncology 08/11/2022 Infusion Hematology and Oncology 11/04/2022 Office Visit Rheumatology Dante Freedman PA [facility] [address] [place] [place], [place] [address] (Wo rk) documented as of this encounter Procedures Procedure Name Priority Date/Time Associated Diagnosis Comme nts HEMOGLOBIN A1C Routine 09/09/2010 12:56 PM Result s for this EST procedure are i n the results section . documented in this encounter Results (ABNORMAL) HEMOGLOBIN A1C (09/09/2010 12:56 PM EST) Analysis Performed At [facility] Time Signature Hemoglobin A1C 7.9 (H) 4.3 - 6.1 CERNER % MILLENNIUM Est Avg Gluc 180 mg/dL [facility] Comment: eAG equivalents for HbA1c percentages: [...] into estimated average glucose values. ??Diabetes Care 2008:31(8):1316-6121. Specimen Anatomical Collection Method Collection Time Receive d Time (Source) Location / / Volume Laterality Blood specimen 09/09/2010 12:56 1 1:09 (specimen) PM EST PM EST Margaret Sawyer SHOW GIRL CHEMISTRY ORDERABLES Performing Organization Address City/State/ZIP Code Phon e Number [place] [phone] [facility] documented in this encounter Visit Diagnoses Not on filedocumented in this encounter Care Teams Local City Driver Relationship Specialty Start Date End Date Suhas Chowdhury MD PCP - General 06/16/10 05/19/11 [address] [place] [address] documented as of this encounter
[2022-05-25 13:33] LABS: Tacrolimus 3.8 ng/mL (See Note)
== END 2022-05-24 10:42 | disposition home or self-care (01) ==
LOC: LBO 10:41
PROVIDERS: PCP Family Medicine; Visit Provider Internal Medicine Gastroenterology
DX: B37.81 Candidal esophagitis (principal); Z79.899 Other long term (current) drug therapy
CPT/HCPCS: 36415; 80197; 85610

== ENCOUNTER 2022-06-16 12:15 | Outpatient (CLI) | payer MEDICARE, OTHER, SELFPAY ==
--- OUTSIDE RECORDS SUMMARY | 2022-06-16 12:19 | XMS_ITS | Encounter Summary ---
:1955 Author Organization [facility] Address [address] [place] [address] Care Team Providers Name Role Phone Violetta Sanford MD Primary Care Provider Encounter Details Date Type Department Care Team Description 07/09/2019 Lab Requisition [facility] Unknown, Provider, Pathology & Laboratory [facility] [address] [facility] [place] [address] Social History Tobacco Use Types Packs/Day Years Used Date Smoking Tobacco: Former Smokeless Tobacco: Never Sex Assigned at Date Recorded Not on [...] encounter Results TACROLIMUS ([id number]) (07/09/2019 11:26 EST) athologist Signature Tacrolimus 5.2 See Note 07/10/2019 [facility] ng/mL 12:26 EST [facility] Comment: NOTE: Therapeutic range is dependent on the cl inical situation. Assayed utilizing Picateers Chemiluminescen t technology. ??Values obtained using different assay methods cannot be used interchangeably. Specimen Anatomical Collection Method Collection Time Receive d Time (Source) Location / / Volume Laterality Blood VENOUS BLOOD / 07/09/2019 11:26 9 Unknown EST 21:09 EST Provider Unknown CHEMISTRY & BLOOD GAS ORDERA BLES Performing Organization Address City/State/ZIP Code Phon e Number [facility] [address] [place] [address] SERVICES documented in this encounter Visit Diagnoses Not on filedocumented in this encounter Care Teams Youth Care Professional Relationship Specialty Start Date End Date Violetta Sanford MD PCP - General 04/06/[address] [place] [phone] documented as of this encounter
--- OUTSIDE RECORDS SUMMARY | 2022-06-16 12:19 | XMS_ITS | Encounter Summary ---
:1955 Author Organization [facility] Address [address] [place] [address] Care Team Providers Name Role Phone Violetta Sanford MD Primary Care Provider Encounter Details Date Type Department Care Team Description 11/15/2018 Results Only Imaging [facility]- Unknown, PRISM ProviderMD [phone] Social History Tobacco Use Types Packs/Day Years Used Date Smoking Tobacco: Never Assessed Sex Assigned at Date Recorded Not on file documented as of this encounter Plan of Treatment Pending Results Name Type Priority Associated Diagnoses Date/Ti me OUTSIDE IMAGES - OTHER Imaging 11/15 13:37 EDT CHEST OUTSIDE IMAGES - CT BODY Imaging 13:37 EDT documented as of this encounter Visit Diagnoses Not on filedocumented in this encounter Care Teams Refrigeration Engineer Relationship Specialty Start Date End Date Violetta Sanford MD PCP - General 04/06/[address] [place] [phone] documented as of this encounter
--- OUTSIDE RECORDS SUMMARY | 2022-06-16 12:19 | XMS_ITS | Encounter Summary ---
:1955 Author Organization [facility] Address [address] [place] [address] Care Team Providers Name Role Phone Violetta Sanford MD Primary Care Provider Encounter Details Date Type Department Care Team Description 11/18/2021 Lab Requisition [facility] Outr Resulting Lab, Pathology & Laboratory Provider [facility] [address] [place] [address] Social History Tobacco Use Types [...] Results HOLD LAVENDER TOP (11/18/2021 11:15 EDT) athologist Signature Hold Hold 11/18/2021 [facility] 18:31 EDT [facility] Specimen Anatomical Collection Method Collection Time Receive d Time (Source) Location / / Volume Laterality Blood VENOUS BLOOD / 11/18/2021 11:15 2 Unknown EDT 17:17 EDT Provider Outr Resulting Lab LAB INFO SERVICE AND SUPPO RT & PHONE RESULT Performing Organization Address City/[facility]/ZIP Code Phon e Number [facility] [address] [place] [address] SERVICES TACROLIMUS ([id number]) (11/18/2021 11:15 EDT) athologist Signature Tacrolimus 3.3 See Note 11/19/2021 [facility] ng/mL 14:20 EDT [facility] Comment: NOTE: Therapeutic range is dependent on the cl inical situation. Assayed utilizing Stupeflix Chemiluminescen t technology. ??Values obtained using different assay methods cannot be used interchangeably. Specimen Anatomical Collection Method Collection Time Receive d Time (Source) Location / / Volume Laterality Blood VENOUS BLOOD / 11/18/2021 11:15 2 Unknown EDT 17:15 EDT Provider Outr Resulting Lab CHEMISTRY & BLOOD GAS YOLANDA FALLON Performing Organization Address City/[facility]/ZIP Code Phon e Number [facility] [address] [place] [address] SERVICES documented in this encounter Visit Diagnoses Not on filedocumented in this encounter Care Teams Bathing Suit Maker Relationship Specialty Start Date End Date Violetta Sanford MD PCP - General 04/06/[address] [place] [address] [phone] documented as of this encounter
--- OUTSIDE RECORDS SUMMARY | 2022-06-16 12:19 | XMS_ITS | Encounter Summary ---
:1955 Author Organization [facility] Address [address] [place] [address] Care Team Providers Name Role Phone Violetta Sanford MD Primary Care Provider Encounter Details Date Type Department Care Team Description 02/24/2022 Lab Requisition [facility] Outr Resulting Lab, Pathology & Laboratory Provider [facility] [address] [place], [place] [id number] Social History Tobacco Use Types Packs/Day Years [...] Results CALCIUM, URINE RANDOM (02/24/2022 11:00 EDT) athologist Signature Calcium, Urine <1.0 See Note 02/25/2022 [facility] mg/dL 9:10 EDT [facility] Comment: NOTE: Reference range has not been established for calcium concentration in random urine specimens. Specimen Anatomical Collection Method Collection Time Receive d Time (Source) Location / / Volume Laterality Urine URINE SPECIMEN 02/24/2022 11:00 2 COLLECTION, CLEAN EDT 16:37 EDT CATCH / Unknown Provider Outr Resulting Lab URINALYSIS ORDERABLES Performing Organization Address City/[facility] Phon e Number [facility] [address] [place] [address] SERVICES MAGNESIUM,URINE RANDOM (02/24/2022 11:00 EDT) athologist Signature Magnesium, 2.9 See Note 02/25/2022 [facility] Urine mg/dL 9:03 EDT [facility] Comment: NOTE: Reference range has not been established for magnesium concentration in random urine specimens. Specimen Anatomical Collection Method Collection Time Receive d Time (Source) Location / / Volume Laterality Urine URINE SPECIMEN 02/24/2022 11:00 2 COLLECTION, CLEAN EDT 16:37 EDT CATCH / Unknown Provider Outr Resulting Lab URINALYSIS ORDERABLES Performing Organization Address City/[facility] Phon e Number [facility] [address] [place] [address] SERVICES PHOSPHORUS, URINE RANDOM (02/24/2022 11:00 EDT) athologist Signature Phosphorous, 49.3 See Note 02/25/2022 [facility] Urine mg/dL 9:08 EDT [facility] Comment: NOTE: Reference range has not been established for phosporous concentration in random urine specimens. Specimen Anatomical Collection Method Collection Time Receive d Time (Source) Location / / Volume Laterality Urine URINE SPECIMEN 02/24/2022 11:00 2 COLLECTION, CLEAN EDT 16:37 EDT CATCH / Unknown Provider Outr Resulting Lab URINALYSIS ORDERABLES Performing Organization Address City/State/ZIP Code Phon e Number [facility] [address] [place] [address] SERVICES documented in this encounter Visit Diagnoses Not on filedocumented in this encounter Care Teams Talent Acquisition Partner Relationship Specialty Start Date End Date Violetta Sanford MD PCP - General 04/06/[address] [place] [address] [phone] documented as of this encounter
--- OUTSIDE RECORDS SUMMARY | 2022-06-16 12:19 | XMS_ITS | Encounter Summary ---
:1955 Author Organization [facility] Address [address] [place] [address] Care Team Providers Name Role Phone Violetta Sanford MD Primary Care Provider Encounter Details Date Type Department Care Team Description 03/19/2020 Lab Requisition [facility] Outr Resulting Lab, Pathology & Laboratory Provider [facility] [address] [place], [place] [address] Social History Tobacco Use Types Packs/Day Years [...] Results CALCIUM, URINE RANDOM (03/19/2020 11:35 EDT) athologist Signature Calcium, Urine <1.0 See Note 03/20/2020 [facility] mg/dL 10:01 EDT [facility] Comment: NOTE: Reference range has not been established for calcium concentration in random urine specimens. Specimen Anatomical Collection Method Collection Time Receive d Time (Source) Location / / Volume Laterality Urine URINE SPECIMEN 03/19/2020 11:35 0 COLLECTION, CLEAN EDT 16:05 EDT CATCH / Unknown Provider Outr Resulting Lab URINALYSIS ORDERABLES Performing Organization Address City/[facility] Phon e Number [facility] [address] [place] [address] SERVICES MAGNESIUM,URINE RANDOM (03/19/2020 11:35 EDT) athologist Signature Magnesium, 3.4 See Note 03/20/2020 [facility] Urine mg/dL 9:56 EDT [facility] Comment: NOTE: Reference range has not been established for magnesium concentration in random urine specimens. Specimen Anatomical Collection Method Collection Time Receive d Time (Source) Location / / Volume Laterality Urine URINE SPECIMEN 03/19/2020 11:35 0 COLLECTION, CLEAN EDT 16:05 EDT CATCH / Unknown Provider Outr Resulting Lab URINALYSIS ORDERABLES Performing Organization Address City/State/[facility] Phon e Number [facility] [address] [place] [address] SERVICES PHOSPHOROUS, URINE RANDOM (03/19/2020 11:35 EDT) athologist Signature Phosphorous, 29.5 See Note 03/20/2020 [facility] Urine mg/dL 10:00 T [facility] Comment: NOTE: Reference range has not been established for phosporous concentration in random urine specimens. Specimen Anatomical Collection Method Collection Time Receive d Time (Source) Location / / Volume Laterality Urine URINE SPECIMEN 03/19/2020 11:35 0 COLLECTION, CLEAN EDT 16:05 EDT CATCH / Unknown Provider Outr Resulting Lab URINALYSIS ORDERABLES Performing Organization Address City/State/ZIP Code Phon e Number [facility] [address] [place] [address] SERVICES documented in this encounter Visit Diagnoses Not on filedocumented in this encounter Care Teams Quality Process Lead Relationship Specialty Start Date End Date Violetta Sanford MD PCP - General 04/06/[address] [place] [phone] documented as of this encounter
--- OUTSIDE RECORDS SUMMARY | 2022-06-16 12:19 | XMS_ITS | Encounter Summary ---
:1955 Author Organization [facility] Address [address] [place] [address] Care Team Providers Name Role Phone Violetta Sanford MD Primary Care Provider Encounter Details Date Type Department Care Team Description 11/07/2020 Lab Requisition [facility] Brie Lux for other Pathology & M, DO general examination Laboratory Medicine - [address] [facility] [address] [place] [phone] Social History Tobacco Use Types Packs/Day Years [...] encounter Results SURGICAL PATHOLOGY (11/07/2020 11:25 EDT) Component Value Ref Test Analysis Performed At [facility] gist Range Method Time Signature Final A. COLON, 60 CMS, POLYP, BIOPSY: [facility] Diagnosis - Tubular adenoma. 9:55 [facility] LABORATORY B. COLON, 50 CMS, POLYPS X3, BIOPSY: SERVICES - No tissue identified in specimen jar. Attestation By the signature 11/11/2020 [facility]ICA L Electronically below, the 9:55 [facility] signed by Heather attending LABORATORY Myrna Gutierrez MD physician SERVICES on 11/12/19 21 at certifies that 0955 they have 1) personally conducted a gross and/or microscopic examination of the described specimen(s), and/or personally interpreted the results of laboratory testing of the described specimen(s), and 2) personally rendered or confirmed the above diagnosis. Clinical Hx colon polyps 11/11/2020 [facility] MEDICAL History 9:55 [facility]ORAT[facility] SERVICES Gross A. 11/11/2020 [facility] MED[facility] Description Received in formalin tonya d with proper patient identification (initials R, R) and colon polyp @ 60 cm are two aiken tissues (0.4 x 0.3 x 0.2 cm and 0.3 x 0.2 x 0.2 cm). Entirely submitted in A1. 9:55 [facility] B. SERVICES Received in formalin tonya d with proper patient identification (initials R, R) and colon polyp @ 50 cm x 3 is a specimen container with no tissue identified. Verified per AD Calvillo 11/10/2020. There are no blocks submitted for part B. Dr. Brie Lux's office is notified 08:57 11/10/2020 Ra Mathis 11/10/2020 8:58 Performing Lab [facility] [[email or web address]] 11/11/2020 [facility] MEDIC AL LAB 9:55 [facility] LABORAT[facility] SERVICES Scanned Images 11/11/2020 [facility] MEDICAL 9:55 [facility] SERVICES Specimen Anatomical Collection Method Collection Time Receive d Time (Source) Location / / Volume Laterality Tissue ENTIRE COLON / 11/07/2020 11:25 1 Unknown EDT 17:06 EDT Tissue specimen ENTIRE COLON / 11/07/2020 11:25 2020 (specimen) Unknown EDT 17:06 EDT Brie Lux DO PATHOLOGY ORDERABLES Performing Organization Address City/State/ZIP Code Phon e Number [facility] LABORATORY [address] [place] [address] SERVICES documented in this encounter Visit Diagnoses Diagnosis Encounter for other general examination documented in this encounter Care Teams Hl7 Developer Relationship Specialty Start Date End Date Violetta Sanford MD PCP - General 04/06/[address] [place] [phone] documented as of this encounter
--- OUTSIDE RECORDS SUMMARY | 2022-06-16 12:19 | XMS_ITS | Clinical Summary ---
:1955 Author Organization [facility] Address [address] [place] [address] Care Team Providers Name Role Phone [...] of john g 11/17/2018 Acute kidney injury ([facility]) 11/17/2018 Elevated random blood glucose level 11/15/2018 Renal transplant, status post 11/15/2018 Encounters Date Type Specialty Care Team Description 05/24/2022 Lab Requisition Clinical Laboratory Outr Resulting Lab , Provider 05/19/2022 Lab Requisition Clinical Laboratory Outr Resulting Lab , Provider 04/21/2022 Lab Requisition Clinical Laboratory Outr Resulting Lab , Provider from Last 3 Months Surgical History Surgery Date Site/Laterality Comments LEG AMPUTATION BELOW KNEE Bilateral APPENDECTOMY KIDNEY TRANSPLANT 02/29/2008 Left DIALYSIS FISTULA CREATION Left Medical History Medical History Date Comments COPD (chronic obstructive pulmonary disease) ([facility]) ([facility]) S/p cadaver renal transplant Insulin dependent diabetes mellitus Essential tremor Social History Tobacco Use Types Packs/Day Years Used Date Smoking Tobacco: Former Smokeless Tobacco: Never Sex Assigned at Date Recorded Not on file Obstetrics History Last Filed Vital Signs Vital Sign Reading [...] 2018 Procedures Procedure Name Priority Date/Time Associated Diagnosis Comme nts TACROLIMUS (FK506) Routine 05/24/2022 9:40 EDT Re sults for this procedure are i n the results section. TACROLIMUS (FK506) Routine 05/19/2022 12:40 Resul ts for this EDT procedure are i n the results section. TACROLIMUS (FK506) Routine 04/21/2022 10:45 Resul ts for this EDT procedure are i n the results section. from Last 3 Months Results TACROLIMUS (FK506) (05/24/2022 9:40 EDT)Only the most recent of3 resultswithin the time period is included. athologist Signature Tacrolimus 3.8 See Note 05/25/2022 [facility] ng/mL 13:28 EDT CENTER LABORATORY SERVICES Comment: NOTE: Tacrolimus Therapeutic Range: 3-12 ng/mL (The goal level is based on clinical context). Assayed utilizing [employer] Chemiluminescen t technology. ??Values obtained using different assay methods cannot be used interchangeably. Specimen Anatomical Collection Method Collection Time Receive d Time (Source) Location / / Volume Laterality Blood VENOUS BLOOD / 05/24/2022 9:40 05/24/2022 Unknown EDT 17:12 EDT Provider Outr Resulting Lab CHEMISTRY & BLOOD GAS ZULEYKAE LEEANNE Performing Organization Address City/State/ZIP Code Phon e Number [facility] [address] [place] [address] SERVICES from Last 3 Months Insurance Payer Benefit Plan Subscriber ID Effective Phone Address Typ e / Group Dates [employer] OF [employer] OF [id number] 2020-Prese [id number] [place] [address] MEDICARE MEDICARE A/B [id number] 2002-Lukas Dsouza O BOX Medicare GL nt [id number] [place] [phone] Advance Directives For more information, please contact: [phone] Documents on File Type Date Recorded 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 Not Discussed Care Teams Movement Assembly Final Inspector Relationship Specialty Start Date End Date Violetta Sanford MD PCP - General 04/06/[address] [place] [phone]
--- OUTSIDE RECORDS SUMMARY | 2022-06-16 12:19 | XMS_ITS | Encounter Summary ---
:[address] [facility] Address [address] [place] [address] Care Team Providers Name Role Phone Violetta Sanford MD Primary Care Provider Encounter Details Date Type Department Care Team Description 05/24/2022 Lab Requisition [facility] Outr Resulting Lab, Pathology & Laboratory Provider [facility] [address] [place], [place] [id number] Social History Tobacco Use Types Packs/Day Years [...] documented in this encounter Results TACROLIMUS (FK506) (05/24/2022 9:40 EDT) athologist Signature Tacrolimus 3.8 See Note 05/25/[address] [facility] MED[facility] ng/mL 13:28 EDT CENTER LABORATORY SERVICES Comment: NOTE: Tacrolimus Therapeutic Range: 3-12 ng/mL (The goal level is based on clinical context). Assayed utilizing IsoPlexiscen t technology. ??Values obtained using different assay methods cannot be used interchangeably. Specimen Anatomical Collection Method Collection Time Receive d Time (Source) Location / / Volume Laterality Blood VENOUS BLOOD / 05/24/2022 9:40 05/24/2022 Unknown EDT 17:12 EDT Provider Outr Resulting Lab CHEMISTRY & BLOOD GAS YOLANDA FALLON Performing Organization Address City/State/ZIP Code Phon e Number [facility]ENTER LABORATORY [address] [place] [address] SERVICES documented in this encounter Visit Diagnoses Not on filedocumented in this encounter Care Teams Management Manager Relationship Specialty Start Date End Date Violetta Sanford MD PCP - General 04/06/[address] [phone] documented as of this encounter
--- OUTSIDE RECORDS SUMMARY | 2022-06-16 12:19 | XMS_ITS | Encounter Summary ---
:1955 Author Organization [facility] Address [address] [place] [address] Care Team Providers Name Role Phone Violetta Sanford MD Primary Care Provider Encounter Details Date Type Department Care Team Description 04/21/2022 Lab Requisition [facility] Outr Resulting Lab, Pathology & Laboratory Provider [facility] [address] [place] [address] Social History Tobacco Use Types [...] encounter Results TACROLIMUS (FK506) (04/21/2022 10:45 EDT) athologist Signature Tacrolimus 2.1 See Note 04/22/2022 [facility] ng/mL 13:43 EDT CENTER LABORATORY SERVICES Comment: NOTE: Tacrolimus Therapeutic Range: 3-12 ng/mL (The goal level is based on clinical context). Assayed utilizing Truistcen DigiMeld technology. ??Values obtained using different assay methods cannot be used interchangeably. Specimen Anatomical Collection Method Collection Time Receive d Time (Source) Location / / Volume Laterality Blood VENOUS BLOOD / 04/21/2022 10:45 2 Unknown EDT 16:51 EDT Provider Outr Resulting Lab CHEMISTRY & BLOOD GAS YOLANDA FALLON Performing Organization Address City/State/ZIP Code Phon e Number [facility] [address] [place] [address] SERVICES documented in this encounter Visit Diagnoses Not on filedocumented in this encounter Care Teams Finnish Rubber Relationship Specialty Start Date End Date Violetta Sanford MD PCP - General 04/06/[address] [place] [phone] documented as of this encounter
--- OUTSIDE RECORDS SUMMARY | 2022-06-16 12:19 | XMS_ITS | Encounter Summary ---
:1955 Author Organization Address [address] [place] [address] Care Team Providers Name Role Phone Violetta Sanford MD Primary Care Provider Encounter Details Date Type Department Care Team Description 07/16/2019 Lab Requisition [facility] Unknown, Provider, Pathology & Laboratory [facility] [address] [facility] [place] [address] Social History Tobacco Use Types Packs/Day Years [...] encounter Results TACROLIMUS (FK506) (07/16/2019 10:44 EST) athologist Signature Tacrolimus 6.5 See Note 07/17/2019 [facility] ng/mL 13:18 EST CENTER LABORATORY SERVICES Comment: NOTE: Therapeutic range is dependent on the cl inical situation. Assayed utilizing DigitalTangible Chemiluminescen t technology. ??Values obtained using different assay methods cannot be used interchangeably. Specimen Anatomical Collection Method Collection Time Receive d Time (Source) Location / / Volume Laterality Blood VENOUS BLOOD / 07/16/2019 10:44 9 Unknown EST 21:30 EST Provider Unknown CHEMISTRY & BLOOD GAS ORDERA BLES Performing Organization Address City/State/ZIP Code Phon e Number [facility] [address] [place] [address] SERVICES documented in this encounter Visit Diagnoses Not on filedocumented in this encounter Care Teams Yarding Engineer Relationship Specialty Start Date End Date Violetta Sanford MD PCP - General 04/06/[address] [place] [phone] documented as of this encounter
--- OUTSIDE RECORDS SUMMARY | 2022-06-16 12:19 | XMS_ITS | Encounter Summary ---
:1955 Author Organization [facility] Address [address] [place] [address] Care Team Providers Name Role Phone Violetta Sanford MD Primary Care Provider Encounter Details Date Type Department Care Team Description 04/17/2020 Lab Requisition [facility] Outr Resulting Lab, Pathology & Laboratory Provider [facility] [address] [place], [place] [phone] Social History Tobacco Use Types Packs/Day Years [...] encounter Results HOLD SST (04/17/2020 11:45 EDT) athologist Signature Hold Hold 04/18/2020 [facility] 17:15 EDT CENTER LABORATORY SERVICES Specimen Anatomical Collection Method Collection Time Receive d Time (Source) Location / / Volume Laterality Blood VENOUS BLOOD / 04/17/2020 11:45 0 Unknown EDT 16:04 EDT Provider Outr Resulting Lab LAB INFO SERVICE AND SUPPO RT & PHONE RESULT Performing Organization Address City/[facility]/ZIP Code Phon e Number [facility] [address] [place] [address] SERVICES HOLD SST (04/17/2020 11:45 EDT) athologist Signature Hold Hold 04/18/2020 [facility] 17:15 EDT CENTER LABORATORY SERVICES Specimen Anatomical Collection Method Collection Time Receive d Time (Source) Location / / Volume Laterality Blood VENOUS BLOOD / 04/17/2020 11:45 0 Unknown EDT 16:04 EDT Provider Outr Resulting Lab LAB INFO SERVICE AND SUPPO RT & PHONE RESULT Performing Organization Address City/[facility]/ZIP Code Phon e Number [facility] [address] [place] [phone] SERVICES PSA TOTAL, DIAGNOSTIC (04/17/2020 11:45 EDT) athologist Signature PSA 2.3 0.0 - 4.5 04/18/2020 [facility] ng/mL 22:12 EDT CENTER LABORATORY SERVICES Specimen Anatomical Collection Method Collection Time Receive d Time (Source) Location / / Volume Laterality Blood VENOUS BLOOD / 04/17/2020 11:45 0 Unknown EDT 16:04 EDT Narrative [facility] SERVICES - 04/18/2020 22:12 EDT NOTE: Serum PSA concentration should not be in terpreted as absolute evidence for the presence or absence of malignant disease. Assayed on Siemens ADVIA Centaur XPT usi ng chemiluminescent technology.??Values obtained by using different assay methods cannot be used interchangeably. Provider Outr Resulting Lab CHEMISTRY & BLOOD GAS ORDE LEEANNE Performing Organization Address [facility]/ZIP Code Phon e Number [facility] [address] [place] [address] SERVICES (ABNORMAL) ANTI NUCLEAR AB (RAMONA), IFA (04/17/2020 11:45 EDT) Patholo gist Method Time Signature RAMONA Positive Negative 04/21/2020 [facility] Interpretation (A) 15:03 EDT CENTER LABORATORY SERVICES Comment: For titers greater than or equal to 1:16 0 (except the centromere and nucleolar patterns) it is recommended that specific follow-up autoantibody testing ??(such as for dsDNA and Extractable Nuclear Antig ens) be performed on all diffuse and/or speckled patterns NOTE: For add-on testing dsDNA is stable for 7 days refrigerated while Extractable Nuclear Antigens are only stable for 48 hours refrigerated. RAMONA Titer and 1:160 Speckled 04/21/2020 15:03 EDT [facility] Pattern 1 LABORATORY SERVICES Specimen Anatomical Collection Method Collection Time Receive d Time (Source) Location / / Volume Laterality Blood VENOUS BLOOD / 04/17/2020 11:45 0 Unknown EDT 16:04 EDT Narrative [facility] SERVICES - 04/21/2020 15:03 EDT Results were obtained with the INOVA NOV A Lite HEp-2 RAMONA Kit by indirect immunofluorescence. Provider Outr Resulting Lab IMMUNOLOGY AND SEROLOGY OR DERABLES Performing Organization Address City/[facility]/ZIP Code Phon e Number [facility] [address] [place] [address] SERVICES CCP ANTIBODIES (04/17/2020 11:45 EDT) P athologist Signature CCP Antibodies <2.5 <5.0 U/mL 04/21/2020 [facility] 9:21 EDT CENTER LABORATORY SERVICES Specimen Anatomical Collection Method Collection Time Receive d Time (Source) Location / / Volume Laterality Blood VENOUS BLOOD / 04/17/2020 11:45 0 Unknown EDT 16:04 EDT Provider Outr Resulting Lab IMMUNOLOGY AND SEROLOGY OR DERABLES Performing Organization Address City/State/ZIP Code Phon e Number [facility] [address] [place] [address] SERVICES documented in this encounter Visit Diagnoses Not on filedocumented in this encounter Care Teams Customer Sales Advisor Relationship Specialty Start Date End Date Violetta Sanford MD PCP - General 04/06/[address] [place] [phone] documented as of this encounter
--- OUTSIDE RECORDS SUMMARY | 2022-06-16 12:19 | XMS_ITS | Encounter Summary ---
:1955 Author Organization [facility] Address [address] [place] [address] Care Team Providers Name Role Phone Violetta Sanford MD Primary Care Provider Encounter Details Date Type Department Care Team Description 07/30/2019 Lab Requisition [facility] Unknown, Provider, Pathology & Laboratory [facility] [address] [facility] [place] [address] Social History Tobacco Use Types Packs/Day Years [...] encounter Results TACROLIMUS (FK506) (07/30/2019 11:14 EST) athologist Signature Tacrolimus 4.1 See Note 07/31/[address] [facility] MED[facility] ng/mL 13:32 EST CENTER LABORATORY SERVICES Comment: NOTE: Therapeutic range is dependent on the cl inical situation. Assayed utilizing [employer] Chemiluminescen t technology. ??Values obtained using different assay methods cannot be used interchangeably. Specimen Anatomical Collection Method Collection Time Receive d Time (Source) Location / / Volume Laterality Blood VENOUS BLOOD / 07/30/2019 11:14 0 Unknown EST 16:33 EST Provider Unknown CHEMISTRY & BLOOD GAS ORDERA BLES Performing Organization Address City/State/ZIP Code Phon e Number [facility] [address] [place] [address] SERVICES documented in this encounter Visit Diagnoses Not on filedocumented in this encounter Care Teams Workforce Analyst Relationship Specialty Start Date End Date Violetta Sanford MD PCP - General 04/06/[address] [place] [phone] documented as of this encounter
--- OUTSIDE RECORDS SUMMARY | 2022-06-16 12:19 | XMS_ITS | Encounter Summary ---
:1955 Author Organization [facility] Address [address] [place] [address] Care Team Providers Name Role Phone Violetta Sanford MD Primary Care Provider Encounter Details Date Type Department Care Team Description 12/16/2021 Lab Requisition [facility] Outr Resulting Lab, Pathology & Laboratory Provider [facility] [address] [place] [address] Social History Tobacco Use Types [...] encounter Results TACROLIMUS (FK506) (12/16/2021 11:18 EDT) athologist Signature Tacrolimus 2.7 See Note 12/17/2021 [facility] ng/mL 12:09 EDT CENTER LABORATORY SERVICES Comment: NOTE: Tacrolimus Therapeutic Range: 3-12 ng/mL (The goal level is based on clinical context). Assayed utilizing Mommy Nearestcen PayDivvy technology. ??Values obtained using different assay methods cannot be used interchangeably. Specimen Anatomical Collection Method Collection Time Receive d Time (Source) Location / / Volume Laterality Blood VENOUS BLOOD / 12/16/2021 11:18 2 Unknown EDT 17:47 EDT Provider Outr Resulting Lab CHEMISTRY & BLOOD GAS YOLANDA FALLON Performing Organization Address City/State/ZIP Code Phon e Number [facility] [address] [place] [address] SERVICES documented in this encounter Visit Diagnoses Not on filedocumented in this encounter Care Teams Instrumentation Specialist Relationship Specialty Start Date End Date Violetta Sanford MD PCP - General 04/06/[address] [place] [phone] documented as of this encounter
--- OUTSIDE RECORDS SUMMARY | 2022-06-16 12:19 | XMS_ITS | Encounter Summary ---
:1955 Author Organization [facility] Address [address] [place] [address] Care Team Providers Name Role Phone Violetta Sanford MD Primary Care Provider Encounter Details Date Type Department Care Team Description 05/06/2021 Lab Requisition [facility] Outr Resulting Lab, Pathology & Laboratory Provider [facility] [address] [place], [place] [phone] Social History Tobacco Use Types Packs/Day Years [...] encounter Results TACROLIMUS (FK506) (05/06/2021 13:10 EDT) athologist Signature Tacrolimus 3.6 See Note 05/07/2021 [facility] ng/mL 13:26 EDT CENTER LABORATORY SERVICES Comment: NOTE: Therapeutic range is dependent on the cl inical situation. Assayed utilizing Relypsa Chemiluminescen t technology. ??Values obtained using different assay methods cannot be used interchangeably. Specimen Anatomical Collection Method Collection Time Receive d Time (Source) Location / / Volume Laterality Blood VENOUS BLOOD / 05/06/2021 13:10 Unknown EDT 21:24 EDT Provider Outr Resulting Lab CHEMISTRY & BLOOD GAS YOLANDA FALLON Performing Organization Address City/State/ZIP Code Phon e Number [facility] [address] [place] [address] SERVICES documented in this encounter Visit Diagnoses Not on filedocumented in this encounter Care Teams Frame Stripper And Crusher Relationship Specialty Start Date End Date Violetta Sanford MD PCP - General 04/06/[address] [place] [phone] documented as of this encounter
--- OUTSIDE RECORDS SUMMARY | 2022-06-16 12:19 | XMS_ITS | Encounter Summary ---
:1955 Author Organization [facility] Address [address] [place] [address] Care Team Providers Name Role Phone Violetta Sanford MD Primary Care Provider Encounter Details Date Type Department Care Team Description 06/11/2019 Lab Requisition [facility] Unknown, Provider, Pathology & Laboratory [facility] [address] [place] [address] Social History Tobacco Use Types Packs/Day Years [...] encounter Results TACROLIMUS (FK506) (06/11/2019 12:12 EST) athologist Signature Tacrolimus 7.2 See Note 06/12/2019 [facility] ng/mL 13:42 EST CENTER LABORATORY SERVICES Comment: NOTE: Therapeutic range is dependent on the cl inical situation. Assayed utilizing Gig[employer] Chemiluminescen t technology. ??Values obtained using different assay methohds cannot be used interchangeably. Specimen Anatomical Collection Method Collection Time Receive d Time (Source) Location / / Volume Laterality Blood VENOUS BLOOD / 06/11/2019 12:12 9 Unknown EST 21:41 EST Provider Unknown CHEMISTRY & BLOOD GAS ORDERA BLES Performing Organization Address City/State/ZIP Code Phon e Number [facility] [address] [place] [address] SERVICES documented in this encounter Visit Diagnoses Not on filedocumented in this encounter Care Teams Smoking Pipe Repairer Relationship Specialty Start Date End Date Violetta Sanford MD PCP - General 04/06/[address] [place] [phone] documented as of this encounter
--- OUTSIDE RECORDS SUMMARY | 2022-06-16 12:19 | XMS_ITS | Encounter Summary ---
:1955 Author Organization [facility] Address [address] [place] [address] Care Team Providers Name Role Phone Violetta Sanford MD Primary Care Provider Encounter Details Date Type Department Care Team Description 07/23/2019 Lab Requisition [facility] Unknown, Provider, Pathology & Laboratory [facility] [address] [facility] [place] [address] Social History Tobacco Use Types Packs/Day Years [...] encounter Results TACROLIMUS (FK506) (07/23/2019 11:22 EST) athologist Signature Tacrolimus 4.6 See Note 07/24/2019 [facility] MEDICAL ng/mL 11:02 EST [facility]ENTER [facility] Comment: NOTE: Therapeutic range is dependent on the cl inical situation. Assayed utilizing [employer] Chemiluminescen t technology. ??Values obtained using different assay methods cannot be used interchangeably. Specimen Anatomical Collection Method Collection Time Receive d Time (Source) Location / / Volume Laterality Blood VENOUS BLOOD / 07/23/2019 11:22 9 Unknown EST 21:38 EST Provider Unknown CHEMISTRY & BLOOD GAS ORDERA BLES Performing Organization Address City/State/ZIP Code Phon e Number [facility] [address] [place] [address] SERVICES documented in this encounter Visit Diagnoses Not on filedocumented in this encounter Care Teams Hot Man Relationship Specialty Start Date End Date Violetta Sanford MD PCP - General 04/06/[address] [place] [phone] documented as of this encounter
--- OUTSIDE RECORDS SUMMARY | 2022-06-16 12:19 | XMS_ITS | Encounter Summary ---
:1955 Author Organization [facility] Address [address] [place] [address] Care Team Providers Name Role Phone Violetta Devi MD Primary Care Provider Encounter Details Date Type Department Care Team Description 02/01/2017 Results Only [facility] Ev Perkins, DO [address] [facility] [address] [place] [address] (Wo rk) Social History Tobacco Use Types Packs/Day Years Used Date Smoking Tobacco: Never Assessed Sex Assigned at Date Recorded Not on file documented as of this encounter Plan of Treatment Not on filedocumented as of this encounter Procedures Procedure Name Priority Date/Time Associated Diagnosis Comme [facility] SURGICAL PATHOLOGY Routine 02/01/2017 9:28 EDT Re sults for this procedure are i n the results section. documented in this encounter Results SURGICAL PATHOLOGY (02/01/2017 9:28 EDT) Component Value Ref Test Analysis Performed At [facility] Method Time Signature Pathology SURGICAL PATHOLOGY REPORT [facility] MEDICAL Report: Reports generated via electronic interface contain origina l data; CENTER however they are lacking the format of the original report. LABORATORY Caution should be taken when reading/interpreting unformat milli reports. SERVICES Name: ? BRETT DAILEY ? Accession #: ? [id number] ? : ? 1955 (Age: 61) ??M ? Collect Date: ? 02/01/2017 ? Location: ? [facility] ? Receive Date: ? 02/02/2017 ? Provider: EV PERKINS DO Copy to: [...] the signature above, the attending physician certifies th at he/she has personally conducted a gross and/or microscopic examin ation of the described specimens and rendered or confirmed the above diagnosis. Specimen(s) Received: A. ??Polyp transverse colon B. ??Descending sigmoid polyps (2) C. ??Sigmoid polyp D. ??Rectal polyp Clinical History: Screening for colon Ca Gross Description: A. ?Received in formalin labelled with proper patie nt identification (initials R, R) and 1. polyp transverse colon is a single pale yellow tissue fragment (0.3 x 0.1 x 0.1 cm). Submitted intact in A1. B. ?Received in formalin labelled with proper patie nt identification (initials R, R) and 2. descending sigmoid polyp are three light aiken tissues (0.2 x 0.1 x 0.1 cm, 0.3 x 0.2 x 0.1 cm and 0.4 x 0.2 x 0.1 cm). Entirely submitted in B1. C. ?Received in formalin labelled with proper patie nt identification (initials R, R) and 3. sigmoid polyp is a single whi te-aiken tissue fragment (0.4 x 0.3 x 0.2 cm). Submitted intact in C1. D. ?Received in formalin labelled with proper patie nt identification (initials R, R) and 4. rectal polyp ar e three white-aiken tissues (0.1 x 0.1 x 0.1 cm, 0.2 x 0.1 x 0.1 cm and 0.3 x 0.1 x 0.1 c m). Entirely submitted in D1. Marcelina White 02/02/2017 10:20 AM End of Report Specimen Anatomical Collection Method Collection Time Receive d Time (Source) Location / / Volume Laterality 02/01/2017 9:28 02/02/2017 9 :28 EDT EDT Ev Perkins DO PATHOLOGY ORDERABLES Performing Organization Address City/State/ZIP Code Phon e Number [facility] [address] [place] [address] SERVICES documented in this encounter Visit Diagnoses Not on filedocumented in this encounter Care Teams Ordnance Engineering Technician Relationship Specialty Start Date End Date Violetta Devi MD PCP - General 04/06/[address] [place] [phone] documented as of this encounter
--- OUTSIDE RECORDS SUMMARY | 2022-06-16 12:19 | XMS_ITS | Encounter Summary ---
:1955 Author Organization [facility] Address [address] [place] [address] Care Team Providers Name Role Phone Violetta Sanford MD Primary Care Provider Encounter Details Date Type Department Care Team Description 05/19/2022 Lab Requisition [facility] Outr Resulting Lab, Pathology & Laboratory Provider [facility] [address] [place], [place] [id number] Social History Tobacco Use Types Packs/Day Years [...] encounter Results TACROLIMUS (FK506) (05/19/2022 12:40 EDT) athologist Signature Tacrolimus 5.3 See Note 05/20/2022 [facility] MEDICAL ng/mL 13:52 EDT CENTER LAB[facility]ORY SERVICES Comment: NOTE: Tacrolimus Therapeutic Range: 3-12 ng/mL (The goal level is based on clinical context). Assayed utilizing [employer] technology. ??Values obtained using different assay methods cannot be used interchangeably. Specimen Anatomical Collection Method Collection Time Receive d Time (Source) Location / / Volume Laterality Blood VENOUS BLOOD / 05/19/2022 12:40 2 Unknown EDT 21:31 EDT Provider Outr Resulting Lab CHEMISTRY & BLOOD GAS YOLANDA FALLON Performing Organization Address City/State/ZIP Code Phon e Number [facility] [address] [place] [address] SERVICES documented in this encounter Visit Diagnoses Not on filedocumented in this encounter Care Teams Cnp Relationship Specialty Start Date End Date Violetta Sanford MD PCP - General 04/06/[address] [place] [phone] documented as of this encounter
--- OUTSIDE RECORDS SUMMARY | 2022-06-16 12:19 | XMS_ITS | Encounter Summary ---
:1955 Author Organization [facility] Address [address] [place] [address] Care Team Providers Name Role Phone Violetta Sanford MD Primary Care Provider Encounter Details Date Type Department Care Team Description 07/02/2019 Lab Requisition [facility] Unknown, Provider, Pathology & Laboratory [facility] acute [facility] [address] [place] [address] Social History Tobacco Use Types Packs/Day Years [...] Associated Diagnosis Comme nts TACROLIMUS (FK506) Routine 07/02/2019 10:50 Resul ts for this EST procedure are i n the results section. documented in this encounter Results TACROLIMUS (FK506) (07/02/2019 10:50 EST) athologist Signature Tacrolimus 6.3 See Note 07/03/2019 [facility] MEDICAL ng/mL 14:21 EST CENTER LAB[facility] SERVICES Comment: NOTE: Therapeutic range is dependent on the cl inical situation. Assayed utilizing [employer] Chemiluminescen t technology. ??Values obtained using different assay methohds cannot be used interchangeably. Specimen Anatomical Collection Method Collection Time Receive d Time (Source) Location / / Volume Laterality Blood VENOUS BLOOD / 07/02/2019 10:50 9 Unknown EST 16:17 EST Provider Unknown CHEMISTRY & BLOOD GAS ORDERA BLES Performing Organization Address City/State/ZIP Code Phon e Number [facility] [address] [place] [address] SERVICES documented in this encounter Visit Diagnoses Not on filedocumented in this encounter Care Teams Hat Cutter Relationship Specialty Start Date End Date Violetta Sanford MD PCP - General 04/06/[address] [place] [phone] documented as of this encounter
--- OUTSIDE RECORDS SUMMARY | 2022-06-16 12:19 | XMS_ITS | Encounter Summary ---
:1955 Author Organization [facility] Address [address] [place] [address] Care Team Providers Name Role Phone Violetta Sanford MD Primary Care Provider Encounter Details Date Type Department Care Team Description 01/12/2022 Lab Requisition [facility] Outr Resulting Lab, Pathology & Laboratory Provider [facility] [address] [place] [address] Social History Tobacco Use Types [...] encounter Results TACROLIMUS (FK506) (01/12/2022 11:38 EDT) athologist Signature Tacrolimus 3.4 See Note 01/13/2022 [facility] MEDICAL ng/mL 12:54 EDT CENTER LAB[facility]ORY SERVICES Comment: NOTE: Tacrolimus Therapeutic Range: 3-12 ng/mL (The goal level is based on clinical context). Assayed utilizing [employer] technology. ??Values obtained using different assay methods cannot be used interchangeably. Specimen Anatomical Collection Method Collection Time Receive d Time (Source) Location / / Volume Laterality Blood VENOUS BLOOD / 01/12/2022 11:38 2 Unknown EDT 17:23 EDT Provider Outr Resulting Lab CHEMISTRY & BLOOD GAS YOLANDA FALLON Performing Organization Address City/State/ZIP Code Phon e Number [facility] [address] [place] [address] SERVICES documented in this encounter Visit Diagnoses Not on filedocumented in this encounter Care Teams Supervisor Customer Complaint Service Relationship Specialty Start Date End Date Violetta Sanford MD PCP - General 04/06/[address] [place] [phone] documented as of this encounter
--- OUTSIDE RECORDS SUMMARY | 2022-06-16 12:19 | XMS_ITS | Encounter Summary ---
:1955 Author Organization [facility] Address [address] [place] [address] Care Team Providers Name Role Phone Violetta Sanford MD Primary Care Provider Encounter Details Date Type Department Care Team Description 10/29/2020 Lab Requisition [facility] Outr Resulting Lab, Pathology & Laboratory Provider [facility] [address] [place], [place] [id number] Social History Tobacco Use Types Packs/Day Years [...] encounter Results TACROLIMUS (FK506) (10/29/2020 12:17 EDT) athologist Signature Tacrolimus 4.5 See Note 10/30/2020 [facility] MEDICAL ng/mL 13:11 EDT CENTER LAB[facility] SERVICES Comment: NOTE: Therapeutic range is dependent on the cl inical situation. Assayed utilizing [employer] Chemiluminescen t technology. ??Values obtained using different assay methods cannot be used interchangeably. Specimen Anatomical Collection Method Collection Time Receive d Time (Source) Location / / Volume Laterality Blood VENOUS BLOOD / 10/29/2020 12:17 1 Unknown EDT 15:55 EDT Provider Outr Resulting Lab CHEMISTRY & BLOOD GAS YOLANDA FALLON Performing Organization Address City/State/ZIP Code Phon e Number [facility] [address] [place] [address] SERVICES documented in this encounter Visit Diagnoses Not on filedocumented in this encounter Care Teams Tax Collector Relationship Specialty Start Date End Date Violetta Sanford MD PCP - General 04/06/[address] [place] [phone] documented as of this encounter
--- OUTSIDE RECORDS SUMMARY | 2022-06-16 12:19 | XMS_ITS | Encounter Summary ---
:1955 Author Organization [facility] Address [address] [place] [address] Care Team Providers Name Role Phone Violetta Sanford MD Primary Care Provider Encounter Details Date Type Department Care Team Description 01/28/2022 Lab Requisition [facility] Outr Resulting Lab, Pathology & Laboratory Provider [facility] [address] [place] [address] Social History Tobacco Use Types [...] Associated Diagnosis Comme nts TACROLIMUS (FK506) Routine 01/28/2022 11:15 Resul ts for this EDT procedure are i n the results section. documented in this encounter Results TACROLIMUS (FK506) (01/28/2022 11:15 EDT) athologist Signature Tacrolimus 3.1 See Note 01/29/2022 [facility] MEDICAL ng/mL 13:33 EDT CENTER LAB[facility]ORY SERVICES Comment: NOTE: Tacrolimus Therapeutic Range: 3-12 ng/mL (The goal level is based on clinical context). Assayed utilizing [employer] technology. ??Values obtained using different assay methods cannot be used interchangeably. Specimen Anatomical Collection Method Collection Time Receive d Time (Source) Location / / Volume Laterality Blood VENOUS BLOOD / 01/28/2022 11:15 2 Unknown EDT 21:12 EDT Provider Outr Resulting Lab CHEMISTRY & BLOOD GAS YOLANDA FALLON Performing Organization Address City/State/ZIP Code Phon e Number [facility] [address] [place] [address] SERVICES documented in this encounter Visit Diagnoses Not on filedocumented in this encounter Care Teams Nature Photographer Relationship Specialty Start Date End Date Violetta Sanford MD PCP - General 04/06/[address] [place] [phone] documented as of this encounter
--- OUTSIDE RECORDS SUMMARY | 2022-06-16 12:19 | XMS_ITS | Encounter Summary ---
:1955 Author Organization [facility] Address [address] [place] [address] Care Team Providers Name Role Phone Violetta Sanford MD Primary Care Provider Encounter Details Date Type Department Care Team Description 12/15/2020 Lab Requisition [facility] Outr Resulting Lab, Pathology & Laboratory Provider [facility] [address] [place] [address] Social History Tobacco Use Types [...] encounter Results TACROLIMUS (FK506) (12/15/2020 11:26 EDT) athologist Signature Tacrolimus 4.6 See Note 12/16/2020 [facility] MEDICAL ng/mL 12:56 EDT CENTER LAB[facility]ORY SERVICES Comment: NOTE: Therapeutic range is dependent on the cl inical situation. Assayed utilizing [employer] Chemiluminescen t technology. ??Values obtained using different assay methods cannot be used interchangeably. Specimen Anatomical Collection Method Collection Time Receive d Time (Source) Location / / Volume Laterality Blood VENOUS BLOOD / 12/15/2020 11:26 1 Unknown EDT 20:24 EDT Provider Outr Resulting Lab CHEMISTRY & BLOOD GAS YOLANDA FALLON Performing Organization Address City/State/ZIP Code Phon e Number [facility] [address] [place] [address] SERVICES documented in this encounter Visit Diagnoses Not on filedocumented in this encounter Care Teams Apple Turner Relationship Specialty Start Date End Date Violetta Sanford MD PCP - General 04/06/[address] [place] [phone] documented as of this encounter
--- OUTSIDE RECORDS SUMMARY | 2022-06-16 12:19 | XMS_ITS | Encounter Summary ---
:1955 Author Organization [facility] Address [address] [place] [address] Care Team Providers Name Role Phone Violetta Sanford MD Primary Care Provider Reason for Referral Follow Up (3 - 10 Business Days) - Receiving Office to Obtain Authorization Specialty Diagnoses / Procedures Referred By Contact Refer red To Contact Diagnoses Renal transplant, status post Acute kidney injury (HCC-CMS) (HCC) Community acquired pneumonia of left lower lobe of lung Shira Mccall DO [address] [place] [phone] Referral ID Status Reason Start Expiration Visits Visits Date Date Requested Authorized [id number] Receiving Office Continuity of 1 1 to Obtain Care 9 Authorization Question Answer Reason for Request: F/u hospitalization CAP and ANSELMO Expected Discharge Date (Inpatient Only): 11/19/2018 Comments Patient getting outpatient Creatine on 11/21 Encounter Details Date Type Department Care Team Description 11/15/2018 - [facility] Monae Truong MD [address] [place] [address] Elevated random blood glucose level (Steff sylvia Dx); 11/17/2018 Encounter General Surgery Orion King-Chante Mayfield MD [address] [id number] Renal transplant, status post; Unit Acute kidney injury (HCC-CMS ); 111 [facility] Community acquired pneumonia of left lower lobe of lung (HCC-CMS) [place] [address] Social History Tobacco Use Types Packs/Day Years [...] d isease-I12.9[ICD-10-CM] I25.10 Atherosclerotic heart disease of unga coronary artery without angina pectoris-I25.10[ICD-10-CM] R25.1 Tremor, unspecified-R25.1[ICD-10-C M] E66.9 Obesity, unspecified-E66.9[ICD-10- CM] K21.9 Gastro-esophageal reflux disease w ithout esophagitis-K21.9[ICD-10-CM] Z66 Do not resuscitate-Z66[ICD-10-CM] D63.1 Anemia in chronic kidney disease-D 63.1[ICD-10-CM] T46.5X5A Adverse effect of other antihyp ertensive drugs, initial encounter-T46.5X5A[ICD-10-CM] 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 Acute kidney injury (HCC-CMS) 11/17/2018 ??? Elevated random blood glucose level [...] presented as a transfer, initially presented to [facility] with fever, chills, shortness of breath found to be due to left lowerlobe pneumonia and ANSELMO on CKD. ANSELMO on CKD-- At [facility] he was given fluids with lack of improvement. Losartan was held. Creatinine peaked at 2.7, from a recent baseline of 1.8 to 1.9. There was suspicion that he had ANSELMO secondary to tacrolimus and thus it was held for 3 doses. It was restated prior to arrival at [facility]. At [facility] transplant nephrology was consulted. Tacrolimus level on 11/16 was 6.0. Creatine improved to 2.12 on the dayof discharge. His ANSELMO was ultimately felt to be related to infection with hypovolemia and losartan use, which improved with holding losartan and fluid resuscitation. He was instructed to hold his losartan at discharge and have his creatinine rechecked on 11/21/2018. At [facility] he was treated with doxycycline and aztreonam in setting of recent hospitalization and suspicion for health-care associated. At [facility] he was switched to Ceftriaxone and doxycyline, which was transitioned to cefpodoxime and doxycycline, with plan to complete a total 7 day course. Condition at Discharge: Good Clinical Issues Needing Follow-up: ANSELMO on CKD s/p Kidney transplant 2007 - creatine downtrending and 2.12 - outpatient Creatine check on 11/21 - continue immunosuppressive therapy, with changes only per transplant official greeter Hypertension: - losartan was held on DC [...] If you have any questions please call [phone]. Follow-up labs and tests Creatinine Complete by: [...] Discharge Instructions Discharge Instr - AVS First ChnatelBienvenido King MD, MD - 11/17/2018 10:24 EDT KIDNEYS [...] If you have any questions please call [phone]. documented in this encounter Medications at Time [...] to DM 2 Donor Kidney transplant at [facility] in 2008 He is followed there On dual immunosuppression with tacrolimus/ MMF Impressions/Recommendations: Leroy Dailey is a 63 y.o. male with past medical history of ESRD most likely due to diabetic nephropathy, s/p kidney transplantation at [facility] and other H including PVD s/p bilateral [...] and until he is able to drink 4537-8283 cc per day. ANSELMO is most likely [...] well and better since being admitted at [facility]. Denies fever, chills, SOB, diarrhea 11 point [...] Out: 2475 [Urine:2475] Current 24 hours: Date 11/17/18699 - 11/18/18 0659 Shift [id number] 1156-1880 24 Hour Total INTAKE P.O. 360 360 [...] - 377 K/cmm 212 Adan Skinner M.D, F.A.C.P Attending Transplant Daily Release And Dupe Printer Line Department Supervisor of Transplant Programs [facility] [place] Pinnerfurnace reliner, Del Day MD [facility] at [address], [facility], [facility] Pager # [phone] [email or web address] Lloyd Salas - 11/16/2018 1216 EDT Initial Case Management/Social [...] FOR FINANCES: TRANSPORTATION: Transportation: Self, Family CULTURAL, YAZDANISM and/or LANGUAGE factors affecting health care/discharge planning: Spiritual/Cultural Requests: None Any factors affecting health care/discharge planning?: No Insurance in Place: Yes Medical Insurance: Yes Type of insurance: Medicare, Supplemental plan to Medicare Medicare type: A, B Supplemental: [employer] Referred to patient financial services: No DISCHARGE [...] presents as a transfer, initially presented to [facility] with fever, chills, shortness of breath found to be due to left lower lobe pneumonia. Pt followed closely by [facility]. This show card writer met with pt and spouse Linda at the bedside. Pt lives with Linda and his mother in a private home in [place], [place]. Home is handicapped accessible equipped with ramps, bed tapeze, hand rails, shower chair. Additional DME includes a 2 wheel and 4 wheel walker and a wheelchair. Pt reports he has no difficulty ambulating with prosthetics. 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 He states he is not involved with any community services or agencies and he does not have HH services. Discharge pending clinical course. Pt reports he hasno concerns with being discharge home. Lloyd Salas RN, NATIONAL ACCOUNT EXECUTIVE, [facility] Pager # [phone] LLOYD SALAS 11/16/2018 12:17 documented in this encounter H&P Notes Orion King-Chante HAWK, - 11/15/2018 1612 EDT Medicine Admission History & Physical Service Date: 11/15/2018 Admit Date: 11/15/2018 15:57 Primary Care Provider: Violetta Sanford Chief Complaint: Fevers, chills, shortness of breath HPI Per telephone encounter from Dr. Truong 11/13/18: Called by Dr. Lynch, hospitalist at [facility]: Sylvia ?? 63yo with history of renal [...] baseline 1.8-1.9. Follows with renal transplant at [facility], but they have no beds and [...] hours. Dr. Lynch will try to call [facility] again in the morning since patient does receive his usual carethere. She will notify us if he does get a bed there. Initially presented to [facility] in [facility] on Sunday 11/12 for chills and a [...] offfor 1.5 days. Back on it now. [facility] doctor called nephrology from [facility]. He states that he feels that his respiratory symptoms have gotten worse over the past two days. Patient feels that his chest in heavy. He is short of breath when he exerts himself. States he is having some shortness of breath right now. Patient notes throat pain as well. Notes that he had abdominal discomfort and nausea on initial presentation to [facility], but this has resolved. Patient's prograf was discontinued while at [facility], and restarted on 11/15 with 1 mg in morning. Received last dose of mycophenolate 500 mg this morning as well. [facility] notes that he became hypoglycemic to 70s when he received 60 units of levemir last night, switched to 40 units lantus. Received last dosesof aztreonam and doxycycline today before transfer. Patient lives in [place], [place] with mother and . Transfers with [...] Essential tremor ??? Insulin dependent diabetes mellitus (HCC-CMS) ??? S/p cadaver renal transplant Past Surgical [...] Temp Temp src Resp SpO2 11/15/18 1836 -- -- -- 16 98 % 11/15/18 1616 (!) 160/69 [...] presents as a transfer, initially presented to [facility] with fever, chills, shortness of breath found to be due to left lower lobe pneumonia. Patient has been treated with doxycycline and aztreonam in setting of recent hospitalization and suspicion for HAP. Additionally, patient presented with ANSELMO in setting of CKD, with suspicion for tacrolimus toxicity and uncontrolled diabetes with blood glucose in 300's. Patient has been transferred to [facility] for further management due to his renal transplant. Patient had atrial fibrillation which is new for him at [facility], but this resolved. Patient is hemodynamically stable. Plan Pneumonia Febrile at [facility], now afebrile. CXR there with LLL consolidation. They were unable to collect sputum culture. Of note patient is immunocompromised due to tacrolimus and per transfer records he has be hospitalized with in the past 2 months. At [facility] he was started on doxycycline and aztreonam due to suspicion for HAP, but presentation is more consistent with CAP. -Switch to azithromycin 250 mg daily and Ceftriaxone 1000 mg daily -tylenol 650mg q6hr PRN -Blood cultures at [facility] pending, negative after 48 hrs. ANSELMO on CKD, s/p left renal transplant 2007 Cr 2.7 at [facility], from baseline 1.8-1.9. Potassium elevated to 5.5 on initial evaluation at [facility] with peaked T-waves on EKG, received calcium gluconate , insulin, bicarb, and albuterol with response. On mycophenolate and tacrolimus, question of whether ANSELMO may be due to tacrolimus toxicity vs prerenal given lack of improvement with IVF. Voiding, less likely to be obstructive. - Transplant nephrology consult - HOT BLAST WORKER tacrolimus 1mg BID and mycophenolate 500mg BID [...] SSI - POCT glucose Atrial fibrillation AT [facility], found to be in a-fib, resolved. Anticoagulation there held pending discussions with nephrology/cardiology. Not currently requiring rate control. -Class III Telemetry CAD Reports worsening chest pressure and dyspnea on exertion in setting of recent pneumonia. Per chart review, patient has history of CAD on aspirin and atorvastatin. No history of [place]. Troponins negative at [facility]. -HOT BLAST WORKER aspirin 81 mg and atorvastatin 20 mg [...] daily Pain: Gabapentin 300mg BID given ANSELMO (HOT BLAST WORKER dose 900 mg TID) VTE Prophylaxis Pharmacologic Prophylaxis: Heparin 5000 units SQ Tid Code: DNR, intubation would be acceptable Discharge Plan Uncertain at this time Consults Transplant Nephrology Admission Status Inpatient. Anticipated duration of hospitalization is greater than two midnights due to ANSELMO with CKDin renal transplant patient and pneumonia. Navin Beltrán MS4 11/15/2018 16:12 Pager [phone] Attending Attestation I interviewed and examined the patient and personally reviewed laboratory studies, radiographic studies from [facility], and medical records. I evaluated and examined [...] of abx with aztreonam and doxycycline at [facility] with defervescence. We will continue treatment for [...] to DM 2 Donor Kidney transplant at [facility] in 2008 He is followed there On dual immunosuppression with tacrolimus/ MMF Impressions/Recommendations: Leroy Dailey is a 63 y.o. male with past medical history of ESRD most likely due to diabetic nephropathy, s/p kidney transplantation at [facility] . Other significant PMH includes PVD s/p [...] lobe pneumonia. He was not accepted at [facility] wherehe has been followed as an [...] the test. Patient has been transferred to [facility] for further management due to his renal transplant. Patient had atrial fibrillation which is new for him at [facility], but this resolved. Patient is hemodynamically stable. On admission at [facility] he was switched to azithromycin 250 mg [...] to diabetic nephropathy, s/p kidney transplantation at [facility] . Other significant PMH includes PVD s/p [...] lobe pneumonia. He was not accepted at [facility] wherehe has been followed as an [...] the test. Patient has been transferred to [facility] for further management due to his renal transplant. Patient had atrial fibrillation which is new for him at [facility], but this resolved. Patient is hemodynamically stable. On admission at [facility] he was switched to azithromycin 250 mg [...] well and better since being admitted at [facility]. Denies fever, chills, SOB, diarrhea 11 point review of system is as above, otherwise negative. PMH PSH Past Medical History: Diagnosis Date ??? COPD (chronic obstructive pulmonary disease) ([facility]-CMS) ??? Essential tremor ??? Insulin dependent diabetes mellitus ([facility]-CMS) ??? S/p cadaver renal transplant Past Surgical [...] 11/16/2018 0646 Gross per 24 hour Intake -- Output 1350 ml Net -1350 ml General [...] (310 lb 13.6 oz) Labs: Results for ASIM LEROY O ( ) as of 11/16/2018 09:02 Ref. [...] Range: <1.4 mg/dl <0.5 Adan Skinner M.D, F.A.C.P Attending Transplant Daily Release And Dupe Printer Line Department Supervisor of Transplant Programs [facility] [place] Pinnerfurnace reliner, Del Day MD [facility] of [facility] at [address], [facility] Pager # [phone] [email or web address] documented in this encounter Miscellaneous Notes Plan of Care - Chante Ponce, SHEILA - 11/17/2018 1405 EDT Problem: Daily Care [...] further questions. CHANTE PONCE RN 11/17/2018 14:03 Plan of Care - Nicky Salazar RN - 11/17/2018 0222 EDT Problem: Daily Care Plan Goals Goal: Care Plan Documentation Outcome: Met This Shift 11/16/18 192 Care Plan Focus Area of Focus Sleep [...] to monitor. Nicky Salazar RN 11/17/2018 2:19 Plan of Care - Karen Mccann RN - 11/16/2018 1437 EDT Pt with elevated BS on admission. FS 266 this am. SSI (9 units) given per SEP. Levimir adjusted to 30 units BID. FS 322 at lunch. SSI + 10 units aspart (23 units total) given. Notified Provider of elevated BS. FYI 322 BS did not upload in chart. Plan of Care - Karen Mccann, RN - [...] to maximizemobility. Karen Mccann RN 11/16/2018 14:17 Daily Progress Note - Bienvenido King MD, MD - 11/16/2018 0700 EDT Medicine Progress Note Service Date: 11/16/2018 Admit Date: 11/15/2018 16:16 Reason for Admission: 63 y.o. male from [facility] for PNA and ANSELMO in setting of [...] Levemir 30units BID Aspart 10u w/ meals HOT BLAST WORKER tacro and mycophenolate Labs Reviewed. Tacrolimus trough [...] presents as a transfer, initially presented to [facility] with fever, chills, shortness of breath found to be due to left lower lobe pneumonia. Patient has been treated with doxycycline and aztreonam in setting of recent hospitalization and suspicion for HAP. Additionally, patient presented with ANSELMO in setting of CKD, with suspicion for tacrolimus toxicity. Patient has been transferred to [facility] for further management due to his renal transplant. Now stable on CAP therapy with Doxy and CTX. Renal transplant team following. ?? Plan ?? Pneumonia Febrile at [facility], now afebrile. CXR there with LLL consolidation. Of note patient is immunocompromised due to tacrolimus and per transfer records he has be hospitalized with in the past 2 months. At [facility] was on doxycycline and aztreonam due to [...] 2.4 today Admitted with Cr 2.7 at [facility], from baseline 1.8-1.9. On mycophenolate and tacrolimus, question of whether ANSELMO may be due to tacrolimus toxicity vs prerenal given lack of improvement with IVF. Voiding without problem. - Transplant nephrology consult - HOT BLAST WORKER tacrolimus 1mg BID and mycophenolate 500mg BID - daily tacrolimus trough, per nephro - daily lytes - daily creatine - hold losartan ?? Type II Diabetes: reportedly required insulin drip then became hypoglycemic at [facility] - hemoglobin A1c ordered - Insulin levemir 30 units BID, - aspart 10u w/ meals plus SSI - carb consistent diet - POCT glucose ?? Atrial fibrillation AT [facility], found to be in a-fib, resolved. Anticoagulation there held pending discussions with nephrology/cardiology. Not currently requiring rate control. -Class III Telemetry ?? CAD Reports worsening chest pressure and dyspnea on exertion in setting of recent pneumonia. Per chart review, patient has history of CAD on aspirin and atorvastatin. No history of [place]. Troponins negative at [facility]. -HOT BLAST WORKER aspirin 81 mg and atorvastatin 20 mg [...] Plan Home or self care Consults Nephrology Melly Bourgeois MD 11/16/2018 7:01 Attending Attestation I interviewed and examined the patient and personally reviewed laboratory studies, radiographic studies, and medical records. I discussed the case with the Medicine residents and agree with history, exam, assessment and plan of care as documented in the note above (with edits in Green). Date of Service: 11/16/2018 Bienvenido King MD Internal Medicine Hospitalist Plan of Care - Aris Owusu RN - [...] will monitor Aris Owusu RN 11/16/2018 2:20 Plan of Care - Monae Amado RN - 11/15/2018 1707 EDT Problem: Daily Care Plan Goals Goal: Care Plan Documentation Outcome: Met This Shift 11/15/18 1600 Care Plan Focus Area of Focus Communication Goal This Shift admit pt this shift Data: Pt arrived to [place] [address] from outside hospital for pneumonia. A&Ox3, VSS, [...] results section. documented in this encounter Results ECG REPORT - SCANNED (11/23/2018 8:17 EDT) Specimen (Source) Anatomical Collection Method Collection Time Re ceived Time Location / / Volume Laterality 11/23/2018 8:17 EDT Narrative This result has an attachment that is no t available. Scan 2 Digital Forensic Examiner PROCEDURE/MINOR SURGICAL ORD ERABLES ECG REPORT - SCANNED (11/21/2018 9:20 EDT) Specimen (Source) Anatomical Collection Method Collection Time Re ceived Time Location / / Volume Laterality 11/21/2018 9:20 EDT Narrative This result has an attachment that is no t available. Scan 2 Digital Forensic Examiner PROCEDURE/MINOR SURGICAL ORD ERABLES ECG REPORT - SCANNED (11/21/2018 9:20 EDT) Specimen (Source) Anatomical Collection Method Collection Time Re ceived Time Location / / Volume Laterality 11/21/2018 9:20 EDT Narrative This result has an attachment that is no t available. Scan 2 Digital Forensic Examiner PROCEDURE/MINOR SURGICAL ORD ERABLES (ABNORMAL) GLUCOSE, GLUCOMETER (11/17/2018 12:41 EDT) [facility] Method Time Signature Glucose, 204 (H) 70 - 100 11/17/2018 [facility] Fingerstick mg/dl 12:43 EDT [facility] Gis Coordinator ID [id number] 11/17/2018 [facility] 12:43 EDT [facility] Comment: Test Performed by Nursing Servi mariella Specimen Anatomical Collection Method Collection Time Receive d Time (Source) Location / / Volume Laterality BLOOD SPECIMEN / 11/17/2018 12:41 019 Unknown EDT 12:43 EDT Bienvenido King MD CHEMISTRY & BLOOD GAS ORDERA BLES Performing Organization Address City/State/ZIP Code Phon e Number [facility] [address] [place] [address] SERVICES (ABNORMAL) GLUCOSE, GLUCOMETER (11/17/2018 7:41 EDT) [facility] Method Time Signature Glucose, 181 (H) 70 - 100 11/17/2018 [facility] Fingerstick mg/dl 7:42 EDT CENTER LABOR[facility] SERVICES Gis Coordinator ID [id number] 11/17/2018 [facility] 7:42 EDT [facility] Comment: Test Performed by Nursing Servi mariella Specimen Anatomical Collection Method Collection Time Receive d Time (Source) Location / / Volume Laterality BLOOD SPECIMEN / 11/17/2018 7:41 11/18/19 19 7:42 Unknown EDT EDT Bienvenido King MD CHEMISTRY & BLOOD GAS ORDERA BLES Performing Organization Address City/State/ZIP Code Phon e Number [facility] [address] [place] [address] SERVICES (ABNORMAL) COMPLETE BLOOD COUNT (11/17/2018 6:07 EDT) athologist Signature WBC 5.43 4.0 - 10.4 11/17/2018 [facility] K/cmm 6:21 EDT [facility] RBC 3.43 (L) 4.36 - 11/17/2018 [facility] 5.78 M/cmm 6:21 EDT [facility] Hemoglobin 10.5 (L) 13.8 - 11/17/2018 [facility] 17.3 gm/dl 6:21 EDT [facility] HCT 32.4 (L) 39.5 - 11/17/2018 [facility] 50.2 % 6:21 EDT [facility] MCV 95 81 - 95 fl 11/17/2018 [facility] 6:21 EDT [facility] MCH 30.6 27.6 - 11/17/2018 [facility] 33.0 pg 6:21 EDT [facility] MCHC 32.4 (L) 32.8 - 11/17/2018 [facility] 36.4 gm/dl 6:21 EDT [facility] RDW-CV 14.3 (H) <14.2 % 11/17/2018 [facility] 6:21 EDT [facility] RDW-SD 49.2 (H) <46.0 fl 11/17/2018 [facility] 6:21 EDT [facility] PLT 212 141 - 377 11/17/2018 [facility] K/cmm 6:21 T [facility] MPV 8.5 (L) 9.5 - 12.7 11/17/2018 [facility] fl 6:21 T [facility] Specimen Anatomical Collection Method Collection Time Receive d Time (Source) Location / / Volume Laterality Blood specimen BLOOD SPECIMEN / 11/17/2018 6:07 2018 6:15 (specimen) Unknown EDT EDT Melly Bourgeois MD HEMATOLOGY & PF4 ORDERABLES Performing Organization Address City/State/ZIP Code Phon e Number [facility] [address] [place] [address] SERVICES (ABNORMAL) CREATININE (11/17/2018 6:07 EDT) [facility] Method Time Signature Creatinine 2.12 (H) 0.66 - 11/17/2018 [facility] 1.25 mg/dl 6:45 [facility] LAB[facility] SERVICES GFR, Calculated 32 (L) >60 11/17/2018 [facility] ml/min/1.7 6:45 T CENTER 3m2 LABORATORY SERVICES Comment: eGFR calculated using CKD-EPI equation f or non Americans. Multiply eGFR by 1.16 for Americans. Specimen Anatomical Collection Method Collection Time Receive d Time (Source) Location / / Volume Laterality Blood specimen BLOOD SPECIMEN / 11/17/2018 6:07 2018 6:15 (specimen) Unknown EDT EDT Melly Bourgeois MD CHEMISTRY & BLOOD GAS ORDERA BLEAngela Performing Organization Address City/State/ZIP Code Phon e Number [facility] [address] [place] [address] SERVICES (ABNORMAL) BUN (11/17/2018 6:07 EDT) athologist Signature BUN 54 (H) 10 - 26 11/17/2018 [facility] mg/dl 6:45 EDT [facility] Specimen Anatomical Collection Method Collection Time Receive d Time (Source) Location / / Volume Laterality Blood specimen BLOOD SPECIMEN / 11/17/2018 6:07 2018 6:15 (specimen) Unknown EDT EDT Melly Bourgeois MD CHEMISTRY & BLOOD GAS ORDERA BLES Performing Organization Address City/[facility]/ZIP Code Phon e Number [facility] [address] [place] [address] SERVICES (ABNORMAL) ELECTROLYTES (11/17/2018 6:07 EDT) athologist Signature Sodium 141 136 - 145 11/17/2018 [facility] mEq/L 6:45 EDT CENTER LABORATORY SERVICES Potassium 4.7 3.5 - 5.0 11/17/2018 [facility] mEq/L 6:45 EDT CENTER LABORATORY SERVICES Chloride 112 (H) 96 - 110 11/17/2018 [facility] mEq/L 6:45 T CENTER LABORATORY SERVICES CO2 21 (L) 22 - 32 11/17/2018 [facility] mEq/L 6:45 EDT CENTER LABORATORY SERVICES Specimen Anatomical Collection Method Collection Time Receive d Time (Source) Location / / Volume Laterality Blood specimen BLOOD SPECIMEN / 11/17/2018 6:07 2018 6:15 (specimen) Unknown EDT EDT Melly Bourgeois MD CHEMISTRY & BLOOD GAS ORDERA BLEAngela Performing Organization Address City/State/ZIP Code Phon e Number [facility] [address] [place] [address] SERVICES (ABNORMAL) GLUCOSE, GLUCOMETER (11/16/2018 20:26 EDT) [facility] gist Method Time Signature Glucose, 237 (H) 70 - 100 11/16/2018 [facility] Fingerstick mg/dl 20:26 EDT CENTER LABORATORY SERVICES Gis Coordinator ID [id number] 11/16/2018 [facility] 20:26 EDT CENTER LABORATORY SERVICES Comment: Test Performed by Nursing Servi mariella Specimen Anatomical Collection Method Collection Time Receive d Time (Source) Location / / Volume Laterality BLOOD SPECIMEN / 11/16/2018 20:26 019 Unknown EDT 20:27 EDT Bienvenido King MD CHEMISTRY & BLOOD GAS ORDERA BLES Performing Organization Address City/State/ZIP Code Phon e Number [facility] [address] [place] [address] SERVICES (ABNORMAL) GLUCOSE, GLUCOMETER (11/16/2018 17:36 EDT) [facility] gist Method Time Signature Glucose, 218 (H) 70 - 100 11/16/2018 [facility] Fingerstick mg/dl 17:46 EDT CENTER LABORATORY SERVICES Gis Coordinator ID [id number] 11/16/2018 [facility] 17:46 EDT CENTER LABORATORY SERVICES Comment: Test Performed by Nursing Boni mariella Specimen Anatomical Collection Method Collection Time Receive d Time (Source) Location / / Volume Laterality BLOOD SPECIMEN / 11/16/2018 17:36 019 Unknown EDT 17:46 EDT Bienvenido King MD CHEMISTRY & BLOOD GAS ORDERA BLES Performing Organization Address City/State/ZIP Code Phon e Number [facility] [address] [place] [phone] SERVICES INPATIENT ADD-ON (11/16/2018 9:35 EDT) [facility] Signature Tests to be CALCIUM 11/16/2018 [facility] added 9:33 EDT [place] [id number] 11/16/2018 [facility] problems 9:40 EDT CENTER LABORATORY SERVICES 11/16/2018 [facility] number 9:40 EDT CENTER LABORATORY SERVICES Specimen Anatomical Collection Method Collection Time Receive d Time (Source) Location / / Volume Laterality OTHER / Unknown 11/16/2018 9:35 9 9:39 EDT EDT Melly Bourgeois MD HEMATOLOGY & PF4 ORDERABLES Performing Organization Address City/State/ZIP Code Phon e Number [facility] [address] [place] [address] SERVICES (ABNORMAL) GLUCOSE, GLUCOMETER (11/16/2018 8:38 EDT) [facility] Method Time Signature Glucose, 266 (H) 70 - 100 11/16/2018 [facility] Fingerstick mg/dl 8:42 T CENTER LABORATORY SERVICES Gis Coordinator ID [id number] 11/16/2018 [facility] 8:42 [facility] CENTER LABORATORY SERVICES Comment: Test Performed by Nursing Celine wolff Specimen Anatomical Collection Method Collection Time Receive d Time (Source) Location / / Volume Laterality BLOOD SPECIMEN / 11/16/2018 8:38 11/17/19 19 8:42 Unknown EDT EDT Bienvenido King MD CHEMISTRY & BLOOD GAS ORDERA BLES Performing Organization Address City/State/ZIP Code Phon e Number [facility] [address] [place] [phone] SERVICES CALCIUM (11/16/2018 8:25 EDT) athologist Signature Calcium 9.5 8.5 - 10.5 11/16/2018 [facility] mg/dl 10:25 EDT CENTER LABORATORY SERVICES Calculated 10.1 8.5 - 10.5 11/16/2018 [facility] Calcium mg/dl 10:25 EDT CENTER LABORATORY SERVICES Specimen Anatomical Collection Method Collection Time Receive d Time (Source) Location / / Volume Laterality BLOOD SPECIMEN / 11/16/2018 8:25 11/17/19 19 8:43 Unknown EDT EDT Melly Bourgeois MD CHEMISTRY & BLOOD GAS ORDERA BLES Performing Organization Address City/State/ZIP Code Phon e Number [facility] [address] [place] [phone] SERVICES (ABNORMAL) CREATININE (11/16/2018 8:25 EDT) [facility] Method Time Signature Creatinine 2.40 (H) 0.66 - 11/16/2018 [facility] 1.25 mg/dl 9:21 EDT CENTER LABORATORY SERVICES GFR, Calculated 27 (L) >60 11/16/2018 [facility] ml/min/1.7 9:21 T CENTER 3m2 LABORATORY SERVICES Comment: eGFR calculated using CKD-EPI equation f or non Americans. Multiply eGFR by 1.16 for Americans. Specimen Anatomical Collection Method Collection Time Receive d Time (Source) Location / / Volume Laterality Blood specimen BLOOD SPECIMEN / 11/16/2018 8:25 2018 8:43 (specimen) Unknown EDT EDT Melly Bourgeois MD CHEMISTRY & BLOOD GAS ORDERA BLES Performing Organization Address City/[facility]/ZIP Code Phon e Number [facility] [address] [place] [address] SERVICES (ABNORMAL) BUN (11/16/2018 8:25 EDT) athologist Signature BUN 49 (H) 10 - 11/16/2018 [facility] mg/dl 9:21 EDT CENTER LABORATORY SERVICES Specimen Anatomical Collection Method Collection Time Receive d Time (Source) Location / / Volume Laterality Blood specimen BLOOD SPECIMEN / 11/16/2018 8:25 2018 8:43 (specimen) Unknown EDT EDT Melly Bourgeois MD CHEMISTRY & BLOOD GAS ORDERA BLES Performing Organization Address [facility] Code Phon e Number [facility] [address] [place] [address] SERVICES (ABNORMAL) ELECTROLYTES (11/16/2018 8:25 EDT) athologist Signature Sodium 138 136 - 145 11/16/2018 [facility] mEq/L 9:21 EDT CENTER LABORATORY SERVICES Potassium 5.1 (H) 3.5 - 5.0 11/16/2018 [facility] mEq/L 9:21 EDT CENTER LABORATORY SERVICES Chloride 108 96 - 110 11/16/2018 [facility] mEq/L 9:21 EDT CENTER LABORATORY SERVICES CO2 20 (L) 22 - 32 11/16/2018 [facility] mEq/L 9:21 EDT CENTER LABORATORY SERVICES Specimen Anatomical Collection Method Collection Time Receive d Time (Source) Location / / Volume Laterality Blood specimen BLOOD SPECIMEN / 11/16/2018 8:25 2018 8:43 (specimen) Unknown EDT EDT Melly Bourgeois MD CHEMISTRY & BLOOD GAS ORDERA BLES Performing Organization Address City/[facility]/ZIP Code Phon e Number [facility] [address] [place] [address] SERVICES TACROLIMUS ([id number]) (11/16/2018 8:25 EDT) athologist Signature Tacrolimus 6.0 ng/ml 11/16/2018 [facility] 13:15 EDT [facility]ENTER LABORATORY SERVICES Comment: Therapeutic range dependent upon clinical situation. Assayed using [employer] Chemiluminescent technology. ??Values obtained by using different assay methods cannot be used interchangeably. Specimen Anatomical Collection Method Collection Time Receive d Time (Source) Location / / Volume Laterality Blood specimen BLOOD SPECIMEN / 11/16/2018 8:25 2018 8:43 (specimen) Unknown EDT EDT Melly Bourgeois MD CHEMISTRY & BLOOD GAS ORDERA BLES Performing Organization Address City/[facility]/ZIP Code Phon e Number [facility] [address] [place] [address] SERVICES (ABNORMAL) PHOSPHORUS (11/16/2018 8:25 EDT) P athologist Signature Phosphorus 4.6 (H) 2.5 - 4.5 11/16/2018 [facility] mg/dl 9:21 T CENTER LABORATORY SERVICES Specimen Anatomical Collection Method Collection Time Receive d Time (Source) Location / / Volume Laterality Blood specimen BLOOD SPECIMEN / 11/16/2018 8:25 2018 8:43 (specimen) Unknown EDT EDT Melly Bourgeois MD CHEMISTRY & BLOOD GAS ORDERA BLES Performing Organization Address City/[facility]/ZIP Code Phon e Number [facility] [address] [place] [address] SERVICES MAGNESIUM (11/16/2018 8:25 EDT) P athologist Signature Magnesium 2.0 1.7 - 2.8 11/16/2018 [facility] mg/dl 9:21 T CENTER LABORATORY SERVICES Specimen Anatomical Collection Method Collection Time Receive d Time (Source) Location / / Volume Laterality Blood specimen BLOOD SPECIMEN / 11/16/2018 8:25 2018 8:43 (specimen) Unknown EDT EDT Melly Bourgeois MD CHEMISTRY & BLOOD GAS ORDERA BLES Performing Organization Address City/[facility]/ZIP Code Phon e Number [facility] [address] [place] [address] SERVICES PROTIME (11/16/2018 8:25 EDT) P athologist Signature Pro Time 13.1 10.3 - 13.4 11/16/2018 [facility] secs 9:03 EDT CENTER LABORATORY SERVICES I.N.R. 1.1 0.9 - 1.1 11/16/2018 [facility] Ratio 9:03 EDT CENTER LABORATORY SERVICES Comment: Moderate Intensity Coumadin INR = 2.0-3. 0 Adjustments in anticoagulant therapy dos e should be based upon the INR and NOT the Pro Ti me. Specimen Anatomical Collection Method Collection Time Receive d Time (Source) Location / / Volume Laterality Blood specimen BLOOD SPECIMEN / 11/16/2018 8:25 2018 8:43 (specimen) Unknown EDT EDT Melly Bourgeois MD HEMATOLOGY & PF4 ORDERABLES Performing Organization Address City/State/ZIP Code Phon e Number [facility] [address] [place] [address] SERVICES (ABNORMAL) COMPLETE BLOOD COUNT AND DIFFERENTIAL (11/16/2018 8:25 EDT) [facility] Method Time Signature WBC 5.82 4.0 - 11/16/2018 [facility] 10.4 8:50 EDT CENTER K/cmm LABORATORY SERVICES RBC 3.49 (L) 4.36 - 11/16/2018 [facility] 5.78 8:50 EDT CENTER M/cmm LABORATORY SERVICES Hemoglobin 10.7 (L) 13.8 - 11/16/2018 [facility] 17.3 8:50 EDT CENTER gm/dl LABORATORY SERVICES HCT 33.2 (L) 39.5 - 11/16/2018 [facility] 50.2 % 8:50 EDT CENTER LABORATORY SERVICES MCV 95 81 - 95 11/16/2018 [facility] fl 8:50 EDT CENTER LABORATORY SERVICES MCH 30.7 27.6 - 11/16/2018 [facility] 33.0 pg 8:50 EDT CENTER LABORATORY SERVICES MCHC 32.2 (L) 32.8 - 11/16/2018 [facility] 36.4 8:50 EDT CENTER gm/dl LABORATORY SERVICES RDW-CV 14.6 (H) <14.2 % 11/16/2018 [facility] 8:50 EDT CENTER LABORATORY SERVICES RDW-SD 50.4 (H) <46.0 fl 11/16/2018 [facility] 8:50 EDT CENTER LABORATORY SERVICES PLT 212 141 - 377 11/16/2018 [facility] K/cmm 8:50 EDT CENTER LABORATORY SERVICES MPV 8.8 (L) 9.5 - 11/16/2018 [facility] 12.7 fl 8:50 EDT CENTER LABORATORY SERVICES Neutrophils 48.9 % 11/16/2018 [facility] 8:50 EDT CENTER LABORATORY SERVICES Lymphocytes 34.0 % 11/16/2018 [facility] 8:50 EDT CENTER LABORATORY SERVICES Monocytes 11.0 % 11/16/2018 [facility] 8:50 EDT CENTER LABORATORY SERVICES Eosinophils 4.8 % 11/16/2018 [facility] 8:50 EDT CENTER LABORATORY SERVICES Basophils 1.0 % 11/16/2018 [facility] 8:50 EDT CENTER LABORATORY SERVICES Immature Grans 0.3 % 11/16/2018 [facility] 8:50 EDT CENTER LABORATORY SERVICES ABS Neutrophils 2.84 2.20 - 11/16/2018 [facility] 8.85 8:50 EDT CENTER K/cmm LABORATORY SERVICES ABS Lymphs 1.98 1.09 - 11/16/2018 [facility] 3.30 8:50 EDT CENTER K/[facility] LABORATORY SERVICES ABS Monocytes 0.64 0.1 - 0.8 11/16/2018 [facility] K/cm 8:50 EDT CENTER LABORATORY SERVICES ABS Eosinophils 0.28 0.03 - 11/16/2018 [facility] 0.61 8:50 EDT CENTER K/[facility] LABORATORY SERVICES ABS Basophils 0.06 0.01 - 11/16/2018 [facility] 0.11 8:50 EDT CENTER K/[facility] LABORATORY SERVICES ABS Immature 0.02 0 - 0.06 11/16/2018 [facility] Grans K/cmm 8:50 EDT CENTER LABORATORY SERVICES Type of Diff: Automated 11/16/2018 [facility] 8:50 EDT CENTER LABORATORY SERVICES Specimen Anatomical Collection Method Collection Time Receive d Time (Source) Location / / Volume Laterality Blood specimen BLOOD SPECIMEN / 11/16/2018 8:25 2018 8:43 (specimen) Unknown EDT EDT Melly Bourgeois MD PACKAGES & DNA PROBE ORDERAB LES Performing Organization Address City/State/ZIP Code Phon e Number [facility] [address] [place] [address] SERVICES BILIRUBIN, TOTAL (11/16/2018 8:25 EDT) P athologist Signature Bilirubin, <0.5 <1.4 mg/dl 11/16/2018 [facility] Total 9:21 EDT CENTER LABORATORY SERVICES Specimen Anatomical Collection Method Collection Time Receive d Time (Source) Location / / Volume Laterality Blood specimen BLOOD SPECIMEN / 11/16/2018 8:25 2018 8:43 (specimen) Unknown EDT EDT Melly Bourgeois MD CHEMISTRY & BLOOD GAS ORDERA BLES Performing Organization Address City/State/ZIP Code Phon e Number [facility] [address] [place] [address] SERVICES ALKALINE PHOSPHATASE (11/16/2018 8:25 EDT) P athologist Signature Total Alkaline 109 38 - 126 11/16/2018 [facility] Phosphatase U/L 9:21 EDT CENTER LABORATORY SERVICES Specimen Anatomical Collection Method Collection Time Receive d Time (Source) Location / / Volume Laterality Blood specimen BLOOD SPECIMEN / 11/16/2018 8:25 2018 8:43 (specimen) Unknown EDT EDT Melly Bourgeois MD CHEMISTRY & BLOOD GAS ORDERA BLES Performing Organization Address City/State/ZIP Code Phon e Number [facility] [address] [place] [address] SERVICES AST (11/16/2018 8:25 EDT) P athologist Signature AST 16 15 - 46 U/L 11/16/2018 [facility] 9:21 EDT CENTER LABORATORY SERVICES Specimen Anatomical Collection Method Collection Time Receive d Time (Source) Location / / Volume Laterality Blood specimen BLOOD SPECIMEN / 11/16/2018 8:25 2018 8:43 (specimen) Unknown EDT EDT Melly Bourgeois MD CHEMISTRY & BLOOD GAS ORDERA BLES Performing Organization Address City/State/ZIP Code Phon e Number [facility] [address] [place] [phone] SERVICES ALT (11/16/2018 8:25 EDT) P athologist Signature ALT 23 21 - 72 U/L 11/16/2018 [facility] 9:21 EDT CENTER LABORATORY SERVICES Specimen Anatomical Collection Method Collection Time Receive d Time (Source) Location / / Volume Laterality Blood specimen BLOOD SPECIMEN / 11/16/2018 8:25 2018 8:43 (specimen) Unknown EDT EDT Melly Bourgeois MD CHEMISTRY & BLOOD GAS ORDERA BLES Performing Organization Address City/State/ZIP Code Phon e Number [facility] [address] [place] [address] SERVICES HEMOGLOBIN A1C (11/16/2018 8:25 EDT) P athologist Signature Hemoglobin A1C 7.8 % 11/16/2018 [facility] 15:12 EDT CENTER LABORATORY SERVICES Comment: Reference Range: <5.7% Normal 5.7-6.4% Prediabetes =>6.5% Diagnostic for diabetes (if confi rmed) Goals for glycemic control in diabetes A DA 2017 For non adults with diabetes: ?? Target <7.0% For children and adolescents with type 1 diabetes: ?? Target <7.5% More or less stringent targets may be appropriate for individual patients. Est Avg Glucose 177 mg/dl 11/16/2018 15:12 EDT [facility] SERVICES Comment: eAG represents the A1c result expressed as average glucose in mg/dl. Specimen Anatomical Collection Method Collection Time Receive d Time (Source) Location / / Volume Laterality Blood specimen BLOOD SPECIMEN / 11/16/2018 8:25 2018 8:43 (specimen) Unknown EDT EDT Melly Bourgeois MD CHEMISTRY & BLOOD GAS ORDERA BLES Performing Organization Address [facility]/ZIP Code Phon e Number [facility] [address] [place] [address] SERVICES STREPTOCOCCUS PNEUMONIAE ANTIGEN, URINE (11/15/2018 22:50 EDT) [facility] Method Time Signature Result No Strep 11/16/2018 [facility] pneumoniae 8:43 EDT CENTER antigen LABORATORY detected. SERVICES Specimen Anatomical Collection Method Collection Time Receive d Time (Source) Location / / Volume Laterality Other (qualifier URINE / Unknown 11/15/2018 22:50 10/24 7:47 value) EDT EDT Comment: Clean catch specimen Bienvenido King MD MICROBIOLOGY - GENERAL ORDER STEPHANIE Performing Organization Address City/State/ZIP Code Phon e Number [facility] [address] [place] [address] SERVICES LEGIONELLA ANTIGEN DETECTION, URINE (11/15/2018 22:50 EDT) [facility] Method Time Signature Result No Legionella 11/16/2018 [facility] pneumophila 8:44 EDT CENTER serogroup 1 LABORATORY antigen SERVICES detected. Specimen Anatomical Collection Method Collection Time Receive d Time (Source) Location / / Volume Laterality Other (qualifier URINE / Unknown 11/15/2018 22:50 04/2 11/2018 7:46 value) EDT EDT Comment: Clean catch specimen Bienvenido King MD MICROBIOLOGY - GENERAL ORDER STEPHANIE Performing Organization Address City/State/ZIP Code Phon e Number [facility] [address] [place] [address] SERVICES (ABNORMAL) GLUCOSE, GLUCOMETER (11/15/2018 20:35 EDT) [facility] gist Method Time Signature Glucose, 228 (H) 70 - 100 11/16/2018 [facility] Fingerstick mg/dl 0:19 EDT CENTER LABORATORY SERVICES Gis Coordinator ID [id number] 11/16/2018 [facility] 0:19 EDT CENTER LABORATORY SERVICES Comment: Test Performed by Nursing Servi mariella Specimen Anatomical Collection Method Collection Time Receive d Time (Source) Location / / Volume Laterality BLOOD SPECIMEN / 11/15/2018 20:35 019 0:19 Unknown EDT EDT Bienvenido King MD CHEMISTRY & BLOOD GAS ORDERA BLES Performing Organization Address City/[facility]/ZIP Code Phon e Number [facility] [address] [place] [address] SERVICES EKG 12-LEAD (11/15/2018 20:05 EDT) Specimen (Source) Anatomical Collection Method Collection Time Re ceived Time Location / / Volume Laterality 11/15/2018 20:05 EDT Narrative [facility] EKG - 11/23/2018 8:12 EDT ? [facility] ? Test Date: ?2018-11-15 Pat Name: ? LEROY DAILEY ? Department: ?? Pul[address] ? Room: ? B327 Gender: ? Male ? Scrap Preparer: ?? : ?1955 ? Requested By: FEDERICO MELLY Order Number: [id number] ? Reading MD: ?? DEVIN NOGUEIRA MD ? Measurements Intervals ?[place] ? Rate: ? 65 ? P: ?69 RI: ? 282 ?QRS: ?-20 QRSD: ? 116 ?T: ?15 QT: ? 409 ? QTc: ?425 ? Interpretive Statements SINUS RHYTHM WITH FIRST DEGREE AV BLOCK MODERATE INTRAVENTRICULAR CONDUCTION DEL AY No previous ECG available for comparison I reviewed the tracing and have either a greed or edited the findings in this report. Electronically Signed On 9 8:12:44 EDT by DEVIN NOGUEIRA MD. Procedure Note Devin Nogueira MD - 11/23/2018Formatt ing of this note might be different from the original. [facility]: 2018-[facility]-15 Pat Name: LEROY DAILEY Department: [facility] [address] Room: [facility] [place] Gender: Male Scrap Preparer: : 1955 Requested By: FEDERICO GOULD EW Order Number: [id number] Reading MD: Ofelia NOGUEIRA MD Measurements Intervals [place] Rate: 65 P: 69 RI: 282 QRS: -20 QRSD: 116 T: 15 QT: 409 QTc: 425 Interpretive Statements SINUS RHYTHM WITH FIRST DEGREE AV BLOCK MODERATE INTRAVENTRICULAR CONDUCTION DEL AY No previous ECG available for comparison I reviewed the tracing and have either a greed or edited the findings in this report. Electronically Signed On 9 8:12:44 EDT by DEVIN NOGUEIRA MD. Melly Bourgeois MD CARDIAC ECG ORDERABLES Performing Organization Address City/State/ZIP Code Phon e Number [facility] EKG (ABNORMAL) GLUCOSE, GLUCOMETER (11/15/2018 18:10 EDT) [facility] Method Time Signature Glucose, 204 (H) 70 - 100 11/15/2018 [facility] Fingerstick mg/dl 18:13 EDT CENTER LABORATORY SERVICES Gis Coordinator ID [id number] 11/15/2018 [facility] 18:13 EDT CENTER LABORATORY SERVICES Comment: Test Performed by Nursing Servi mariella Specimen Anatomical Collection Method Collection Time Receive d Time (Source) Location / / Volume Laterality BLOOD SPECIMEN / 11/15/2018 18:10 019 Unknown EDT 18:13 EDT Bienvenido King MD CHEMISTRY & BLOOD GAS ORDERA BLES Performing Organization Address City/State/ZIP Code Phon e Number [facility] [address] [place] [address] SERVICES documented in this encounter Visit Diagnoses Diagnosis Community acquired pneumonia of left low er lobe of lung - Primary Elevated random blood glucose level Other abnormal glucose Renal transplant, status post Acute kidney injury (HCC-CMS) (HCC) Acute kidney failure, unspecified Community acquired pneumonia of left low er lobe of lung Elevated random blood glucose level Other abnormal glucose Renal transplant, status post Acute kidney injury (HCC-CMS) (HCC) Acute kidney failure, unspecified documented in [...] Monae Amado, RN)2317 (Given - Provider: Aris Owusu RN) 0609 (Given - Provider: Aris Owusu RN)1244 (Given - Provider: Karen Mccann, SHEILA)1751 (Given [...] SHEILA) 0300 (Given - Provider: Chante Ponce, SHEILA) 20 mg, oral, DAILY, First dose on Tue at 0900, Until Discontinued, Routine azithromycin (ZITHROMAX) tablet 250 mg (CANCELED) 2035 (Given - Provider: Aris Owusu RN) 0914 (Given - Provider: Karen Mccann RN) 250 mg, oral, DAILY, 3 doses, First dose on Tue11/15/18 at 1930, Last dose on Tue11/17/18 at 0900, Routine cefTRIAXone (ROCEPHIN) 1,000 mg in sodium chloride (NS MBP) 50 mL IVPB 2036 (Given - Provider: Aris Owusu RN) 0915 (Given - Provider: Karen Mccann RN) 1013 (Given - Provider: Chante Ponce RN) 1,000 mg, intravenous, Administer over 3 0 Minutes, DAILY, 4 doses, First dose on Tue11/15/18 at 1930, Last dose on Tue11/18/18 at 0900, Routine doxycycline (VIBRA-TABS) tablet 100 mg 1 244 (Given - Provider: Karen Mccann, SHEILA)2017 (Given - Provider: Nicky Salazar, SHEILA) 1011 (Given - Provider: Chante Ponce, SHEILA) 100 mg, oral, EVERY 12 HOURS, 4 doses, F irst dose on Tue11/16/18 at 1215, Last dose on Tue11/17/18 at 2100, Routine gabapentin (NEURONTIN) capsule 300 mg 09 (Given - Provider: Karen Mccann RN)2018 (Given - Provider: Nicky Salazar RN) 101 (Given - Provider: Chante Ponce RN) 300 mg, oral, 2 TIMES DAILY, First dose on Tue11/16/18 at 0900, Until Discontinued, Routine heparin injection 5,000 Units 1738 (Given - Provider: Monae Amado, SHEILA)2318 (Given - Provider: Aris Owusu RN) 0914 (Given - Provider: Karen Mccann, SHEILA)1633 (Given - Provider: Curt Singh, SHEILA) 0100 (Given - Provider: Nicky Salazar, SHEILA)1011 (Given - Provider: Chante Ponce, SHEILA)1600 (Canceled Entry - Provider: Batch Job User Admin - Comment: Automatically canceled at discontinue of medication order) 5,000 Units, subcutaneous, EVERY 8 HOURS , First dose on Tue11/15/18 at 1730, Until Discontinued, Routine insulin aspart U-100 (NOVOLOG FLEXPEN) injection 10 Units 1246 (Given - Provider: Karen Mccann RN)1743 (Given - Provider: Curt Singh, SHEILA) 0752 (Given - Provider: Iliana Molina RN)1247 (Given - Provider: Chante Ponce, SHEILA) 10 Units, subcutaneous, 3 TIMES DAILY WI , First dose on Tue11/16/18 at 1200, Until Discontinued insulin aspart U-100 (NOVOLOG FLEXPEN) injection 0915 (Given - Provider: Karen Mccann RN)1246 (Given - Provider: Karen Mccann RN - Comment: [phone] (Given - Provider: Curt Singh RN) 0750 (Given - Provider: Iliana Molina, SHEILA)1246 (Given - Provider: Chante Ponce, SHEILA) subcutaneous, 3 TIMES DAILY WITH MEALS, First dose on Tue11/16/18 at 0800, Until Discontinued insulin detemir U-100 (LEVEMIR) injection 30 Units (CA NCELED) 2148 (Given - Provider: Aris Owusu RN) 30 Units, subcutaneous, AT BEDTIME, Firs t dose on Tue11/15/18 at 2100, Until Discontinued, Routine insulin detemir U-100 (LEVEMIR) injection 30 Units 1103 (Given - Provider: Karen Mccann RN)2028 (Given - Provider: Nicky Salazar RN) 104 (Given - Provider: Chante Ponce RN) 30 Units, subcutaneous, 2 TIMES DAILY L. A. INSULIN, First dose on Tue11/16/18 at 1030, Until Discontinued, Routine lidocaine (XYLOCAINE) 2 % viscous solution 15 mL (COMP LETED) 1811 (Given - Provider: Monae Amado, SHEILA) 15 mL, oral, NOW X1, 1 dose, Tue11/15/18 at 1745, Routine montelukast (SINGULAIR) tablet 10 mg 2036 (Given - Provider: Aris Owusu RN) 2017 (Given - Provider: Nicky Salazar RN) 10 mg, oral, AT BEDTIME, First dose on W ed 11/15/18 at 2100, Until Discontinued, Routine mycophenolate (CELLCEPT) capsule 500 mg 914 (Given - Provider: Karen Mccann RN)2017 (Given - Provider: Nicky Salazar RN) 103 (Given - Provider: Chante Ponce RN) 500 [...] (G iven - Provider: Aris Owusu RN) 09 (Given - Provider: Karen Mccann RN )1245 (Given - Provider: Karen Mccann RN)163 (Given - Provider: Curt Singh RN)2017 (Given - Provider: Nicky Saalzar RN) 1011 (Given - Provider: Brynn Ricketts)1243 (Given - Provider: Chante Ponce RN) 500,000 Units, swish and swallow, 4 TIME S DAILY, 28 doses, First dose on Tue11/15/18 at 2100, Last dose on Tue11/22/18 at 1700, Routine pantoprazole (PROTONIX) tablet 40 mg 913 (Given - Provider: Karen Mccann RN) 101 (Given - Provider: Chante Ponce RN) 40 mg, oral, DAILY, First dose on Lucie 11/16/18 at 0900, Until Dis continued tacrolimus (PROGRAF) capsule 0.5 mg 2017 (Given - Provider: Nicky Salazar RN) 0.5 mg, oral, EVERY EVENING, First dose on Lucie 11/16/18 at 2000, Until Discontinued, Routine tacrolimus (PROGRAF) capsule 1 mg (CANCELED) 2147 (Giv en - Provider: Aris Owusu RN) 09 (Given - Provider: Karen Mccann RN) 1 mg, oral, 2 TIMES DAILY TRANSPLANT, Fi rst dose on Tue11/15/18 at 2000, Until Discontinued, Routine tacrolimus (PROGRAF) capsule 1 mg 1040 (Given - Provider: Chante Ponce RN) 1 mg, oral, DAILY, First dose on 10/24 at 0800, Until Discontinued, Routine tiotropium (SPIRIVA) 18 mcg inhalation capsule 18 mcg 914 (Given - Provider: Karen Mccann RN) 1040 (Given - Provider: Brynn Ricketts) 18 mcg, inhalation, DAILY, First dose on Lucie 11/16/18 at 0900, Until Discontinued, Routine Continuous Medication Order 11/15/2018 11/16/2018 11/17/2018 sodium chloride 0.9 % (NS) infusion (CANCELED) 1633 (New Bag - Provider: Curt Singh, SHEILA)1929 (Rate Documented - Provider: Nicky Salazar RN) at 30 mL/hr, 2,000 mL, intravenous, CONT INUOUS, Starting Lucie 11/16/18 at 1530, Until Tue11/17/18 at 0949, Routine PRN Medication Order 11/15/2018 11/16/2018 11/17/2018 albuterol inhaler 2 puff 2 puff, inhalation, EVERY 6 HOURS PRN, S tarting 11/15/18 at 1718, Until Tue11/17/18 at 1618, Wheezing, Routine dextrose 50 % solution 12.5 g 12.5 g (25 mL), intravenous, PRN, Starti ng Wed 11/15/18 at 1728, Until Tue11/17/18 at 1618, Low Blood Sugar, Routine glucagon injection 1 mg 1 mg, intramuscular, PRN, Starting Wed at 1728, Until Tue11/17/18 at 1618, Low [...] tacrolimus (PROGRAF) capsule 1 mg 1 11/15/2018 Diet Count Last Ordered Date First Ordered Date DISCHARGE DIET 1 11/17/2018 Nursing Count Last Ordered Date First Ordered Date ACTIVITY INSTRUCTIONS 11/17/2018 BATHING INSTRUCTIONS 11/17/2018 VTE PHARMACOLOGIC PROPHYLAXIS CURRENTLY 11/16/19 19 ORDERED OR ON ALTERNATIVE THER IV Count Last Ordered Date First Ordered Date IV REQUEST 1 11/15/2018 Admission Count Last Ordered Date First Ordered Date STATUS: INPATIENT ACUTE ADMISSION 11/15/2018 Transfer Count Last Ordered Date First Ordered Date NOTIFY PPS OF DISCHARGE COMPLETE 1 11/17/2018 UR PATIENT STATUS CHANGE 2 11/15/2018 Discharge Count Last Ordered Date First Ordered Date DISCHARGE PATIENT 1 11/17/2018 Legal Count Last Ordered Date First Ordered Date MISCELLANEOUS DISCHARGE INSTRUCTIONS 1 11/17/2018 documented in this encounter Care Teams Planning Division Superintendent Relationship Specialty Start Date End Date Violetta Sanford MD PCP - General 04/06/[address] [place] [phone] documented as of this encounter
--- OUTSIDE RECORDS SUMMARY | 2022-06-16 12:19 | XMS_ITS | Encounter Summary ---
:1955 Author Organization [facility] Address [address] [place] [address] Care Team Providers Name Role Phone Suhas Chowdhury MD Primary Care Provider Unavailable Encounter Details Date Type Department Care Team Description 04/02/2016 Hospital Encounter [facility] Unknown, Provider, Domingo Arreola MD [address] [facility] [phone] [place] [address] (Work) [phone] Social History Tobacco Use Types Packs/Day Years Used Date Smoking Tobacco: Never Assessed Sex Assigned at Date Recorded Not on file documented as of this encounter Discharge Disposition Disposition Code Departure Means Destination Home or Self [place] documented in this encounter Plan of Treatment Not on filedocumented as of this encounter Visit Diagnoses Not on filedocumented in this encounter Care Teams Industry Operations Investigator Relationship Specialty Start Date End Date Suhas Chowdhury MD PCP - General 10/09/09 04/05/16 documented as of this encounter
--- OUTSIDE RECORDS SUMMARY | 2022-06-16 12:19 | XMS_ITS | Encounter Summary ---
:1955 Author Organization [facility] Address [address] [place] [address] Care Team Providers Name Role Phone Violetta Sanford MD Primary Care Provider Reason for Visit Reason Onset Date Comments Discuss Possible Transfer 11/13/2018 Encounter Details Date Type Department Care Team Description 11/13/2018 Telephone [facility] TeleronMonae MD Discuss Possible MEDICINE [address] [place] [phone] Social History Tobacco Use Types Packs/Day Years Used Date Smoking Tobacco: Never Assessed Sex Assigned at Date Recorded Not on file documented as of this encounter Miscellaneous Notes Telephone Encounter - Monae Truong MD - 11/13/[address] Lynch, hospitalist at [facility]: Sylvia 63yo with history of renal transplant [...] baseline 1.8-1.9. Follow with renal transplant at [facility], but they have no beds and [...] hours. Dr. Lynch will try to call [facility] again in the morning since patient does receive his usual carethere. She will notify us if he does get a bed there. Time spent coordinating care: 30 minutes Monae Truong M.D. Internal Medicine Hospitalist Attending Pager #[phone] documented in this encounter Plan of Treatment Not on filedocumented as of this encounter Visit Diagnoses Not on filedocumented in this encounter Care Teams Pizza Cook Relationship Specialty Start Date End Date Violetta Sanford MD PCP - General 04/06/[address] [place] [phone] documented as of this encounter
--- OUTSIDE RECORDS SUMMARY | 2022-06-16 12:19 | XMS_ITS | Encounter Summary ---
:[address] [facility] Address [address] [place] [address] Care Team Providers Name Role Phone Violetta Sanford MD Primary Care Provider Encounter Details Date Type Department Care Team Description 08/13/2019 Lab Requisition [facility] Unknown, Provider, Pathology & Laboratory General acute hospital [address] [facility] [place] [address] Social History Tobacco Use Types Packs/Day Years [...] encounter Results TACROLIMUS (FK506) (08/13/2019 11:05 EST) athologist Signature Tacrolimus 4.3 See Note 08/14/2019 [facility] ng/mL 13:25 EST [facility] Comment: NOTE: Therapeutic range is dependent on the cl inical situation. Assayed utilizing [employer] Chemiluminescen t technology. ??Values obtained using different assay methods cannot be used interchangeably. Specimen Anatomical Collection Method Collection Time Receive d Time (Source) Location / / Volume Laterality Blood VENOUS BLOOD / 08/13/2019 11:05 0 Unknown EST 15:14 EST Provider Unknown CHEMISTRY & BLOOD GAS ORDERA BLES Performing Organization Address City/State/ZIP Code Phon e Number [facility] [address] [place] [address] SERVICES documented in this encounter Visit Diagnoses Not on filedocumented in this encounter Care Teams Woodwork Teacher Relationship Specialty Start Date End Date Violetta Sanford MD PCP - General 04/06/[address] [place] [phone] documented as of this encounter
--- OUTSIDE RECORDS SUMMARY | 2022-06-16 12:19 | XMS_ITS | Encounter Summary ---
:1955 Author Organization [facility] Address [address] [place] [address] Care Team Providers Name Role Phone Violetta Sanford MD Primary Care Provider Encounter Details Date Type Department Care Team Description 03/19/2020 Lab Requisition [facility] Outr Resulting Lab, Pathology & Laboratory Provider [facility] [address] [place], [place] [id number] Social History Tobacco Use Types Packs/Day Years [...] Associated Diagnosis Comme nts TACROLIMUS (FK506) Routine 03/19/2020 11:35 Resul ts for this EDT procedure are i n the results section. PTH INTACT Routine 03/19/2020 11:35 Results for this EDT procedure are i n the results section. documented in this encounter Results (ABNORMAL) PTH INTACT (03/19/2020 11:35 EDT) athologist Signature Intact PTH 186 (H) 19 - 88 03/20/2020 [facility] pg/mL 8:10 EDT [facility] Specimen Anatomical Collection Method Collection Time Receive d Time (Source) Location / / Volume Laterality Blood VENOUS BLOOD / 03/19/2020 11:35 0 Unknown EDT 16:10 EDT Provider Outr Resulting Lab CHEMISTRY & BLOOD GAS YOLANDA FALLON Performing Organization Address City/[facility]/ZIP Code Phon e Number [facility] [address] [place] [address] SERVICES TACROLIMUS ([id number]) (03/19/2020 11:35 EDT) athologist Signature Tacrolimus 4.0 See Note 03/20/2020 [facility] ng/mL 13:16 EDT [facility] Comment: NOTE: Therapeutic range is dependent on the cl inical situation. Assayed utilizing [employer] Chemiluminescen t technology. ??Values obtained using different assay methods cannot be used interchangeably. Specimen Anatomical Collection Method Collection Time Receive d Time (Source) Location / / Volume Laterality Blood VENOUS BLOOD / 03/19/2020 11:35 0 Unknown EDT 16:15 EDT Provider Outr Resulting Lab CHEMISTRY & BLOOD GAS YOLANDA FALLON Performing Organization Address City/State/ZIP Code Phon e Number [facility] [address] [place] [address] SERVICES documented in this encounter Visit Diagnoses Not on filedocumented in this encounter Care Teams Glue Cook Relationship Specialty Start Date End Date Violetta Sanford MD PCP - General 04/06/[address] [place] [phone] documented as of this encounter
--- OUTSIDE RECORDS SUMMARY | 2022-06-16 12:19 | XMS_ITS | Encounter Summary ---
:1955 Author Organization [facility] Address [address] [place] [address] Care Team Providers Name Role Phone Violetta Sanford MD Primary Care Provider Encounter Details Date Type Department Care Team Description 06/24/2021 Lab Requisition [facility] Outr Resulting Lab, Pathology & Laboratory Provider [facility] [address] [place] [address] Social History Tobacco Use Types [...] encounter Results TACROLIMUS ([id number]) (06/24/2021 12:50 EST) athologist Signature Tacrolimus 2.4 See Note 06/25/2021 [facility] ng/mL 12:40 EST [facility] Comment: NOTE: Therapeutic range is dependent on the cl inical situation. Assayed utilizing [employer] Chemiluminescen t technology. ??Values obtained using different assay methods cannot be used interchangeably. Specimen Anatomical Collection Method Collection Time Receive d Time (Source) Location / / Volume Laterality Blood VENOUS BLOOD / 06/24/2021 12:50 1 Unknown EST 22:03 EST Provider Outr Resulting Lab CHEMISTRY & BLOOD GAS YOLANDA FALLON Performing Organization Address City/State/ZIP Code Phon e Number [facility] [address] [place] [address] SERVICES documented in this encounter Visit Diagnoses Not on filedocumented in this encounter Care Teams Hand Candy Molder Relationship Specialty Start Date End Date Violetta Sanford MD PCP - General 04/06/[address] [place] [phone] documented as of this encounter
--- OUTSIDE RECORDS SUMMARY | 2022-06-16 12:20 | XMS_ITS | Clinical Summary ---
:1955 Author Organization [place] [address] Care Team Providers Name Role Phone Violetta [...] 4 Devices by 4 each 0 12/02/2015 [employer] [facility]Non-Drug; MiscIndications: Combo Route) route S/P bilateral BKA [...] 100 each 3 03/09/2017 Active disposable, 29 Misc.(Non-Drug; gauge x 1/2 Combo Route) route 3 [...] (FLONASE) 50 EACH NOSTRIL ONCE A mcg/actuation [place], DAY NEEDED Suspension amLODIPine (Norvasc) Take 0.5 tablets by 90 tablet 3 0 Active 10 mg Tablet mouth daily. metoprolol succinate Take 1 tablet by mouth 90 tablet 1 2019 Active XL (Toprol-XL) 50 mg daily. Tablet Sustained Release 24 hr Blood-Glucose Sensor by [facility] [place]Non-Drug; 0 Active (Dexcom G6 Sensor) Combo Route) route. Device Sensor, geospatial specialist andtransmitter darbepoetin cristy in Inject 300 mg as 0 Active polysorbat 10 mcg/0.4 directed as needed. mL Syringe cyanocobalamin, Take 100 mcg by mouth 0 Active Vitamin B-12, (Vitamin daily. B-12) 100 mcg Tablet FreeStyle Gilberto 14 Day 1 each by 6 kit 3 01/13/2021 Active Sensor Kit [facility]Non-Drug; Combo Route) route every 14 days. Use [...] to continuously 1 each 0 08/04/2021 Active [place] Mis monitor blood glucose. Scan at least 5 times per day. FreeStyle Gilberto 2 1 each by 6 kit 3 08/07/2021 A ctive Sensor Kit [facility]Non-Drug; Combo Route) route every 14 days. Use [...] REMOVAL Patient's Name: Leroy Torres MRN: [id number] Surgery Date: 12/29/2021 Interval Follow Up: Year [...] s Prophylactic immunotherapy 03/21/2019 Persistent proteinuria 03/08/2017 shelter current use of immunosuppressive drug 2015 Aftercare [...] DPT and [employer] Cy Britton, [facility] ph. [phone]. NOTE: As of 06/28/14 evaluation, patient does not meet Medicare guidelines for powered mobility. See PT evaluation 06/28/14 for specifics. Wheelchair fitting or adjustment - Power Chair Evaluation 06/28/2014 06/28/14 requested by Donell Hernandez MD End stage renal disease 08/02/2006 08/29/2012 Encounters Date Type Specialty Care Team Description 06/14/2022 Telephone Audiology Aria Colón 06/10/2022 Telephone Transplant Shayy Interiano, RN 06/09/2022 Telephone Transplant Shayy Interiano, RN 06/08/2022 Telephone Transplant Taj Lloyd, STUDENT SERVICES COUNSELOR 06/07/2022 Telephone Otolaryngology Eulalia Urban, RN 06/02/2022 Infusion Hematology and CKD (chronic kidney Oncology disease) stage 4, GFR 15-29 ml/min 06/02/2022 Travel 05/26/2022 Office Visit Otolaryngology Farzad, Left chronic serous otitis media; DA Garsia ETD (Eustachia n tube dysfunction), left; 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 05/26/2022 Travel 05/21/2022 External Results Transplant 05/19/2022 Infusion Hematology and CKD (chronic kidney Oncology disease) stage 4, GFR 15-29 ml/min 05/19/2022 Telephone Hematology and [place], Labs Only (La b Oncology Angelica Gilbert, Alison) RN 05/19/2022 Travel 05/14/2022 Telephone Gastroenterology Singh, Kimo Gilbert MD 05/13/2022 Laboratory Lab Brett esophag itis Appointment 05/13/2022 Office Visit Audiology Mindy Moody L, AUD sensorineural h earing loss 05/13/2022 Telephone Otolaryngology Sylvia Dyson 05/10/2022 Telephone Gastroenterology Breanne Bridges 05/07/2022 Telephone Audiology Niyah Ricci 05/06/2022 Telephone Gastroenterology Singh, Kimo Gilbert MD 05/05/2022 Infusion Hematology and CKD (chronic kidney Oncology disease) stage 4, GFR 15-29 ml/min 05/05/2022 Telephone Gastroenterology SinghKimo MD 05/04/2022 Telephone Gastroenterology SinghKimo MD 05/04/2022 Refill Neurology Shivam Rojas MD 05/03/2022 Refill Neurology Shivam Rojas MD 04/28/2022 Office Visit Otolaryngology Iraj Scott, Left chronic serous otitis media; ETD (Eustachian tube dysfunction), left; 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; H/O kidney tilley splant; 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 immunosuppressive drug 04/26/2022 External Results Transplant 04/21/2022 Infusion Hematology and CKD (chronic kidney Oncology disease) stage 4, GFR 15-29 ml/min 04/21/2022 Office Visit Hematology and Sasha, Anemia of chr onic renal failure, stage 4 (severe); Oncology Nicky Ramirez, H/O kidney tilley splant 04/21/2022 Telephone Hematology and Brittany Vera, Labs Only ( Lab records and tape recordings engineer tracking) 04/21/2022 Telephone Transplant Aria Khan RN 04/19/2022 Surgery Gastroenterology Singh, Kimo Gilbert, EGD WITH BIOPSY (RUST 2.49) 04/19/2022 Anesthesia Event Gastroenterology Josué Gutierrez MD 04/19/2022 Hospital Gastroenterology Singh, Kimo Gilbert, Encounter 04/07/2022 Infusion Hematology and Anemia of chr onic Oncology renal failure, stage 4 (severe) 04/01/2022 [facility] Radiology Sieglinger, Dysphagia, unsp ecified Encounter Shira Zurita, STUDENT SERVICES COUNSELOR type 03/25/2022 Telephone Otolaryngology Aria Colón 03/24/2022 Infusion Hematology and Anemia of chr onic Oncology renal failure, stage 4 (severe) 03/24/2022 Telephone Hematology and [place], Labs Only (La b Oncology Angelica Gilbert, Tracking) RN 03/23/2022 Refill Transplant Mariola, Transplanted ki dney; Alejo Desir MD Other complica tion of kidney transplant; Prophylactic im munotherapy 03/17/2022 Office Visit Transplant Mariola, CKD (chronic ki dney disease) stage 4, GFR 15-29 ml/min; Alejo Desir MD Anemia of compensation administrator ivon renal failure, stage 4 (severe); Renal osteodyst rophy; Aftercare follo wing organ transplant; Prophylactic im munotherapy; Other complicat ion of kidney transplant 03/17/2022 Laboratory Lab Appointment 03/17/2022 Office Visit Otolaryngology Iraj Scott, Left chronic serous otitis media; 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; H/O kidney tilley splant; 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 immunosuppressive 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; Anemia of chron ic renal failure, stage 4 (severe) 03/17/2022 Office Visit Audiology Nuon, Asymmetrical se nsorineural hearing loss; Mer L, AUD History of ty mpanostomy tube placement 03/17/2022 Refill Transplant Alejo Garnett MD from Last 3 Months Immunizations Name Administration Dates Next Due Hepatitis B Vaccine, unspecified 03/01/2005, 09/28/2004, formulation Influenza PF, Split 05/13/2016 Influenza Vaccine, High Dose 10/05/2021 Quadrivalent PF Influenza Vaccine, Whole 06/25/2008, 05/19/2005 Moderna Covid-19 (Wire Preparation Worker 100mcg) 03/19/2021, 11/17/2020, Vaccine Pneumococcal Conjugate (13 Valent) 07/09/2015 Pneumococcal Polyvalent 23 03/21/2019, 02/23/2012, 7, 12/20/1996 Td, adult 06/24/1990 Tdap Vaccine 07/13/2013 Social History Tobacco Use Types Packs/Day Years Used Date Smoking Tobacco: Former Cigarettes 2 20 Quit : 01/19/1993 Smokeless Tobacco: Never Alcohol Use Standard Drinks/Week Comments Yes 0 (1 standard drink = 0.6 oz pure alcoho l) 1 beer monthly Sex Assigned at Date Recorded Not on file Last Filed Vital Signs Vital Sign Reading Time Taken Comments Blood Pressure 154/61 06/02/2022 1:23 PM EST Pulse 72 06/02/2022 1:23 PM EST Temperature 36.9 ??C (98.4 ??F) 06/02/2022 1:23 PM EST Respiratory Rate 18 06/02/2022 1:23 PM EST Oxygen Saturation 99% 06/02/2022 1:23 PM EST Inhaled Oxygen Concentration - - Weight 130.6 kg (288 lb) 05/26/2022 11:22 AM EDT Height 194.3 cm (6' 4.5) 05/26/2022 11:22 AM EDT Body Mass Index 34.6 05/26/2022 11:22 AM EDT Plan of Treatment Upcoming Encounters Date Type Specialty Care Team Description 06/16/2022 Infusion Hematology and Oncology 06/21/2022 Office Visit Neurology Tyler Rojas MD [facility] Neurology [place], [place] [phone] (Wo rk) 06/29/2022 Appointment Cardiology Violetta Sanford M D [address] [place] [address] (Wo rk) 06/30/2022 Infusion Hematology and Oncology 07/14/2022 Infusion Hematology and Oncology 07/28/2022 Infusion Hematology and Oncology 08/11/2022 Infusion Hematology and Oncology 08/16/2022 Office Visit Audiology Midny Moody, [facility] [place], [place] [address] (Wo rk) 11/04/2022 Office Visit Rheumatology Dante Freedman, PA [facility] RHEUMATOLOGY [place], [place] [address] (Wo rk) Health Maintenance Due [...] history exists Medical Devices Implanted Type Area Digital Sales Representative Device Shelf Model / Identifier Expiration Date Ser ial / Lot Paparella Vent Tube 1.02mm Id Ultrasil Silicone Left: Ear 06/12/2029 [id number] / Implanted: Qty: 1 on 02/09/2022 by Archie Avila MD at [facility] / [id number] Procedures Procedure Name Priority Date/Time Associated Comments Diagnosis ORDS - PROVIDER CARE 06/03/2022 12:00 Res ults for this SCAN AM EST procedure are i n the results section. ECHO SCAN (SCAN) 06/03/2022 12:00 Results for this AM EST procedure are i n the results section. LAB SCAN Routine 05/19/2022 Results for thi [...] results section. from Last 3 Months Results SCAN DOC: ECHO (06/03/2022 12:00 AM EST) Anatomical Region Laterality Modality Cardiac Other Narrative 06/03/2022 12:00 AM EST This result has an attachment that is no t available. Ordered by an unspecified provider. Scanning Provider MEDIA MGR SCAN EXT ORDR/RSLT SCAN DOC: ORDS - PROVIDER CARE (06/03/2022 12:00 AM EST) Narrative 06/03/2022 12:00 AM EST This result has an attachment that is no t available. Ordered by an unspecified provider. Scanning Provider MEDIA MGR SCAN EXT ORDR/RSLT Scan Doc: Lab (05/19/2022)Only the most recent of12 resultswithin the time period is included. Narrative This result has an attachment that is no t available. Historical Provider MEDIA MGR SCAN EXT ORDR/RSLT CBC (with Diff) (05/19/2022)Only the most recent of2 resultswithin the time [...] P athologist Signature Tacrolimus Lvl 3.6 ng/mL [facility] Comment: Trough therapeutic range [...] Organization Address City/State/[place] [address] Specimen to Pathology (04/19/2022 9:14 AM EDT)Only the most recent of4 results within the time period is included. Specimen Anatomical Collection Method Collection Time Receive d Time (Source) Location / / Volume Laterality AP Specimen 04/19/2022 9:14 AM 2 9:14 EDT AM EDT Narrative [facility] - 04/19/2022 9:14 AM EDT Specimen requisition ordered. ??Separate Pathology report to follow Kimo Singh MD PATHOLOGY/CYTOLOGY ORDERABLE S Performing Organization Address City/State/[place] [address] Surgical Pathology Report (04/19/2022 8:57 AM EDT) Component Value Ref Test Analysis Performed At [facility] Range Method Time Signature Surgical [id number] ? Location: 4T; EA06; A [facility] Report The signing pathologist has (i) [...] Jaclyn Verified: ??04/26/2022 13:43 ??Pathologist Performed at: ??-[facility] Dept. of Pathology, [place], [place] DISCUSSION A, C - ??Yeast and [...] Organization Address City/State/[place] [address] UPPER GI ENDOSCOPY (04/19/2022 8:39 AM EDT) Component Value Ref Test Analysis Performed Pathologis t Range Method Time At Signature UPPER GI [facility] ENDOSCOPY Endoscopy Procedure Date: 04/19/2022 8:39 AM ? Patient Name: Leroy Torres ? Date of : 1955 ? Age: 66 ? Order #: [id number] ? Instrument Name: [id number] ? Procedure: ? Upper GI endoscopy Indications: [...] Procedure Code(s): ? --- Professional --- ? 26973, Esophagogastroduode noscopy, ? flexible, transoral; with biopsy, [...] Dysphagia, ? pharyngoesophageal phase CPT copyright 2021 [employer]. All rights reserved. The codes documented in this report are preliminary and upon spindle sander review may be revised to meet current [...] who have questions please contact the health career technical education instructor that requested your imaging first. ? Narrative 04/01/2022 10:25 AM EDT EXAMINATION: XR FLUORO BARIUM SWALLOW (SINGLE CONTRAST) CLINICAL HISTORY: ?[place] TECHNIQUE: Formal barium swallow examination with t imed component were unable to be performed due to patient mobility limita tions. Single contrast esophagram and a semisupine angle was performed. ??Fluoro scopic spot films were obtained. Fluoro time: 0.82 minutes COMPARISON: None FINDINGS: Spooler Rubber Strand: The visualized lungs and cardiomediastin al contours [...] Fluoro time: 0.82 minutes COMPARISON: None FINDINGS: Spooler Rubber Strand: The visualized lungs and cardiomediastin al contours [...] ho have questions please contact the health career technical education instructor that requested your imaging first. Shira Ramírez STUDENT SERVICES COUNSELOR IMG FLUORO ORDERABLES (ABNORMAL) Urinalysis Microscopic Exam (03/17/2022 11:49 AM EDT) P athologist Signature RBC UA 5 (H) 0 - 3 /HPF [facility] WBC UA 1 0 - 3 /HPF [facility] Squam Epith UA 1 <=4 /HPF [facility] Hyaline Cast 1 0 - 2 /LPF [facility] Specimen Anatomical Collection Method Collection Time Receive d Time (Source) Location / / Volume Laterality Clean Catch 03/17/2022 11:49 03/17/2022 Urine AM EDT 11:59 AM EDT Resulting Agency Comment Spec In Lab Alejo Garnett MD URINE ORDERABLES Performing Organization Address City/[facility]/[place] [address] (ABNORMAL) Protein/Creatinine Ratio, urine (03/17/2022 11:49 AM EDT) Analysis Performed At Patho logist Time Signature U Creatinine 70 mg/dL [facility] U Protein Ran 333 (H) 0 - 12 [facility] Prot/Cre Ratio 4.8 ratio [facility] Specimen Anatomical Collection Method Collection Time Receive d Time (Source) Location / / Volume Laterality Urine 03/17/2022 11:49 03/17/2022 AM EDT 12:01 PM EDT Resulting Agency Comment Spec In Lab Alejo Garnett MD URINE ORDERABLES Performing Organization Address City/State/[place] [address] (ABNORMAL) Urinalysis with reflex Culture (03/17/2022 11:49 AM EDT) Patholo gist Method Time Signature Glucose UA 100 (A) Negative [facility]dL [facility] Protein UA >=300 (A) Negative [facility] mg/dL [facility] Bilirubin UA Negative Negative [facility] mg/dL [facility] Comment: Clinical correlation required for [...] CENTER LABORATORY Blood UA Negative Negative mg/dL [facility] Ketones UA Negative Negative mg/dL [facility] Nitrite UA Negative Negative [facility] Leukocytes UA Negative Negative [facility] LABORATORY Appearance UA Clear Clear [facility] Spec Webb UA 1.016 1.005 - 1.030 [facility] Color UA Yellow Yellow [facility] Culture Reflexed No [facility] Specimen Anatomical Collection Method Collection Time Receive d Time (Source) Location / / Volume Laterality Clean Catch 03/17/2022 11:49 03/17/2022 Urine AM EDT 11:59 AM EDT Resulting Agency Comment Spec In Lab Alejo Garnett MD URINE ORDERABLES Performing Organization Address City/State/[place] [address] (ABNORMAL) Hemogram (03/17/2022 11:44 AM EDT) Analysis Performed At Patho logist Time Signature WBC 6.8 4.0 - 9.5 [facility] x10(3)/[facility] LABORATORY RBC 3.24 (L) 4.58 - [facility] 5.54 [facility] x10(6)/[facility] LABORATORY Hemoglobin 9.4 (L) 13.7 - [facility] 16.5 g/dL [facility] Hematocrit 30.7 (L) 40.5 - [facility] 48.5 % [facility] MCV 94.8 (H) 82.9 - [facility] 93.[address] [facility] MCH 29.0 27.5 - [facility] [facility] MCHC 30.6 (L) 32.0 - [facility] 35.7 g/dL [facility] Platelets 180 145 - 357 [facility] x10(3)/[facility] LABORATORY RDWSD 49.7 (H) 36.0 - [facility] 45.0 [facility] LABORATORY RDWCV 14.5 (H) 11.4 - [facility] 13.8 % [facility] MPV 8.8 7.6 - 12.9 [facility] LABORATORY nRBC % Auto 0.0 % [facility] nRBC Abs Auto 0.000 0.000 - [facility] 0.000 [facility] x10(3)/[facility] LABORATORY Specimen Anatomical Collection Method Collection Time Receive d Time (Source) Location / / Volume Laterality Blood 03/17/2022 11:44 03/17/2022 AM EDT 12:08 PM EDT Resulting Agency Comment Spec In Lab Alejo Garnett MD HEMATOLOGY ORDERABLES Performing Organization Address City/State/[place] [address] Differential, Automated (03/17/2022 11:44 AM EDT) P athologist Signature Neutrophils % 57.0 % [facility] Neutr Abs (ANC) 3.90 1.70 - [facility] 6.10 [facility] x10(3)[facility] LABORATORY Lymphocytes % 28.1 % [facility] Lymphocytes Abs 1.9 0.9 - 3.2 [facility] x10(3)[facility] LABORATORY Monocytes % 10.1 % [facility] Monocyte Abs 0.7 0.3 - 0.9 [facility] x10(3)[facility] LABORATORY Eosinophils % 4.4 % [facility] Eosinophils Abs 0.3 0.0 - 0.4 [facility] x10(3)/[facility] LABORATORY Basophils % 0.3 % [facility] Basophils Abs 0.0 0.0 - 0.1 [facility] x10(3)/[facility] LABORATORY Immature Gran % 0.10 % [facility] Comment: Immature granulocytes(IG's)percentage an d absolute count will include metamyelocytes, myelocytes, and promyelo cytes. Blood smears from CBCs yielding IG's will be scanned manually for concor dance. If this scan disagrees with the automated IG or if promyelocytes are not ed, a manual differential will be performed. Courtney Gran Abs 0.01 0.00 - 0.04 x10(3)/[facility] Specimen Anatomical Collection Method Collection Time Receive d Time (Source) Location / / Volume Laterality Blood 03/17/2022 11:44 03/17/2022 AM EDT 12:08 PM EDT Resulting Agency Comment Spec In Lab Alejo Garnett MD HEMATOLOGY ORDERABLES Performing Organization Address City/[facility]/ZIP Code Phon e Number [address] (ABNORMAL) Reticulocyte Count (03/17/2022 11:44 AM EDT) Patholo gist Method Time Signature Retic Ct % 2.1 0.7 - 2.6 [facility] LABORATORY Retic Ct Abs 0.070 0.030 - [facility] 0.120 [facility] x10(6)/[facility] LABORATORY Immature Retic% 22.5 (H) 0.0 - [facility] 15.6 % [facility] Reticulated Hgb 25.9 (L) 31.3 - [facility] 40.[address] [facility] Specimen Anatomical Collection Method Collection Time Receive d Time (Source) Location / / Volume Laterality Blood 03/17/2022 11:44 03/17/2022 AM EDT 12:08 PM EDT Resulting Agency Comment Spec In Lab Alejo Garnett MD HEMATOLOGY ORDERABLES Performing Organization Address City/[facility]/ZIP Code Phon e Number [place], [place] [id number] [place] [address] Uric acid (03/17/2022 11:44 AM EDT) P athologist Signature Uric Acid 8.1 3.5 - 8.5 [facility] mg/dL [facility] Specimen Anatomical Collection Method Collection Time Receive d Time (Source) Location / / Volume Laterality Blood 03/17/2022 11:44 03/17/2022 AM EDT 12:08 PM EDT Resulting Agency Comment Spec In Lab Alejo Garnett MD CHEMISTRY ORDERABLES Performing Organization Address City/State/ZIP Code Phon e Number [address] Phosphorus (03/17/2022 11:44 AM EDT) athologist Signature Phosphorus 3.4 2.5 - 4.5 [facility] mg/dL [facility] Specimen Anatomical Collection Method Collection Time Receive d Time (Source) Location / / Volume Laterality Blood 03/17/2022 11:44 03/17/2022 AM EDT 12:08 PM EDT Resulting Agency Comment Spec In Lab Alejo Garnett MD CHEMISTRY ORDERABLES Performing Organization Address City/[facility]/ZIP Code Phon e Number [address] Magnesium (03/17/2022 11:44 AM EDT) athologist Signature Magnesium 0.71 0.69 - 1.07 [facility] mmol/L [facility] Specimen Anatomical Collection Method Collection Time Receive d Time (Source) Location / / Volume Laterality Blood 03/17/2022 11:44 03/17/2022 AM EDT 12:08 PM EDT Resulting Agency Comment Spec In Lab Alejo Garnett MD CHEMISTRY ORDERABLES Performing Organization Address City/[facility]/ZIP Code Phon e Number [address] Cholesterol, total (03/17/2022 11:44 AM EDT) athologist Signature Chol, Total 91 mg/dL [facility] Comment: Lower Risk: <200 mg/dL Average Risk: 200-239 mg/dL Higher Risk: >qh=175 mg/dL Lipid Interpretation See Note [facility] Comment: Lipid management should be guided by a p atient? s ASCVD risk, goals and preferences. ACC/AHA Guidelines recommend high intens ity statin if clinical ASCVD or LDL greater than or equal to 190 mg/dL. http://tinyurl.com/PWC-DOS-Dcbnytlyc Adults aged 40-75 with LDL 70-189 mg/dL should have their 10 year ASCVD risk estimated with the ACC/AHA ASCVD risk es timator http://tools.acc.org/YFHRS-Vklz-Eqbmrbfj r/ Statin should be discussed if risk [...] Organization Address City/State/[place] [address] Comprehensive hearing test (03/17/2022 [...] HL for which has bilateral GARCIA (managing barrel endshake adjuster is Dr. Moody). To day, patient reported [...] hearing. 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 Moody). To day, patient reported [...] hearing. 3) follow- up appointment to managing barrel endshake adjuster for GARCIA needs - p rovided there are no medical contraindications to resuming GARCIA use at this time. Mer [facility] A[facility]IOLOG[facility] ORDERABLE S Performing Organization Address City/State/ZIP Code Phon e Number AUDBASE COMP from Last 3 Months Insurance Payer Benefit Plan / Subscriber ID Effective Dates Phone Addre ss Type Group MEDICARE MEDICARE PART [id number] 2020-Prese [phone] [place] [id number] [employer] [place] [id number] 2020-Presen [employer] [place] [id number] Advance Directives Latest Code Status on File Code Status Date Activated Date Inactivated Comments Attempt Cardiopulmonary Resuscitation - 01/06/2022 10:33 PM 2021 5:05 PM Inpatient Question Answer Comments Code Status decision made by: Patient Code Status History Code Status Date Activated Date Inactivated Comments Attempt Cardiopulmonary Resuscitation - 10/22/2021 2:18 PM 10/24/19 4:38 AM Inpatient Question Answer Comments Code Status decision made by: Patient Full Code 06/16/2013 7:01 AM 06/27/2013 2:17 PM Question Answer Comments Order Status: Initial Order Does patient have decision making Yes, Order is based on Pat ients capacity? wishes. Full Code 06/21/2011 3:33 PM 06/24/2011 5:03 PM Care Teams Asw Specialist Relationship Specialty Start Date End Date Violetta Sanford MD PCP - General 04/02/14 [address] [place] [address]
--- OUTSIDE RECORDS SUMMARY | 2022-06-16 12:20 | XMS_ITS | Encounter Summary ---
:1955 Author Organization [facility] Address [address] [place] [address] Care Team Providers Name Role Phone Suhas Chowdhury MD Primary Care Provider Unavailable Unknown, Provider Primary Care Provider Encounter Details Date Type Department Care Team Description 11/15/2003 Results Only [facility] - Chris Mccollum MD conversion [id number] [place], [place] [address] [phone] Social History Tobacco Use Types Packs/Day Years [...] encounter Results SURGICAL PATHOLOGY (11/15/2003 0:00 EDT) Component Value Ref Test Analysis Performed At [facility] Method Time Signature Pathology SURGICAL PATHOLOGY REPORT KETTY CLEMENS Report: Reports generated via electronic interface contain origina l data; CLEMENT BORREGO however they are lacking the format of the original report. Caution should be taken when reading/interpreting unformatte d reports. Name: ? BRETT DAILEY ? Accession #: ? [id number] ? : ? 1955 (Age: 48) ??M ? Collect Date: ? 11/15/2003 ? Location: ? [facility] ? Receive Date: ? 11/18/2003 ? Provider: CHRIS LAWS MD Copy to: SUHAS CHOWDHURY MD ? Final Pathologic Diagnosis: ? Hydrocele [...] or confirmed the above diagnosis. Specimen(s) Received: ? R hydrocele sac Clinical History: ? R hydrocele Gross Description: ? Received in formalin labelled Brian and R hydro cassie sac are two irregular shaped, aiken to aiken-joy, firm to rubbery pieces of thickened, fibromembranous tissue, whic h measure 5.5 x 4.2 x 0.5 cm and 5.5 x 3.2 x 0.3 cm. There are no discrete nodules noted. ??A litigation claim representative s ection of each is submitted as (A1) and (A2). ??(Suki Cottrell/shani ? End of Report Specimen (Source) Anatomical Collection Method Collection Time Re ceived Time Location / / Volume Laterality 11/15/2003 11/18/2003 15:0 5 EDT Chris Laws MD PATHOLOGY ORDERABLES Performing Organization Address City/State/ZIP Code Phon e Number [facility] [address] [place] [address] SERVICES [facility] [address] [place] [address] documented in this encounter Visit Diagnoses Not on filedocumented in this encounter Care Teams Jewel Bearing Turner Relationship Specialty Start Date End Date Suhas Chowdhury MD PCP - General 10/09/09 04/05/16 Unknown, Provider, PCP - General 09/30/09 10/08/09 documented as of this encounter
--- OUTSIDE RECORDS SUMMARY | 2022-06-16 12:20 | XMS_ITS | Encounter Summary ---
:1955 Author Organization [facility] [place] [address] Care Team Providers Name Role Phone Violetta Sanford MD Primary Care Provider Encounter Details Date Type Department Care Team Description 04/21/2022 Office Visit Hematology/Oncology Nicky Baez of chronic renal failure, stage 4 (severe); at [facility] MD James H/O kidney transplant [address] [place] [phone] HEMATOLOGY/ONCOLOGY [phone] DEPT. [place], [place] [address] (Wo rk) Social History Tobacco [...] insufficiency. Followed by Dr Garnett at [facility]. Seen for epo supplementation. Patient Active Problem [...] ??? Prophylactic immunotherapy ??? Persistent proteinuria ??? 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 Aftercare [...] chronically-ill appearing 66 year old male in [facility]. He is accompanied to clinic by his [...] Result Value Ref Range UPPER GI ENDOSCOPY [facility] Endoscopy Procedure Date: 04/19/2022 8:39 AM Patient Name: Leroy Torres Date of : 1955 Age: 66 Order #: [id number] Instrument Name: [id number] Procedure: Upper GI endoscopy Indications: Esophageal dysphagia [...] physician. The [facility] - Pre-procedure physical examination revealed [...] present medications. Procedure Code(s): --- Professional --- 71456, Esophagogastroduodenoscopy, flexible, transoral; with biopsy, single or multiple Diagnosis Code(s): --- Professional --- K22.9, Disease of esophagus, unspecified K31.89, Other diseases of stomach and duodenum R13.14, Dysphagia, pharyngoesophageal phase --- Technical --- K22.9, Diseas e of esophagus, unspecified K31.89, Other diseases of stomach and duodenum R13.14, Dysphagia, pharyngoesophageal phase CPT copyright 2020 [employer]. All rights reserved. The codes documented in this report are preliminary and upon cloth tester review may be revised to meet current compliance requirements. Attending Participation: I was present and participated during the entire procedure, including non-martníez portions. Kimo Singh M.D. Kimo Singh, 04/19/2022 [...] Rojas MD [facility] Neurology [place], [place] [address]22 (Oscar escobedo) 06/29/2022 Appointment Cardiology Violetta Sanford M D [address] [place] [address] (Oscar escobedo) 06/30/2022 Infusion Hematology and Oncology 07/14/2022 Infusion Hematology and Oncology 07/28/2022 Infusion Hematology and Oncology 08/11/2022 Infusion Hematology and Oncology 08/16/2022 Office Visit Audiology Mindy Moody AUD [facility] AUDIOLOGY DEPT [place], [place] [address] (Wo rk) 11/04/2022 Office Visit Rheumatology Dante Freedman PA [facility] ER [address] [place], [place] [address] (Wo rk) Scheduled Orders Name Type [...] transplant documented in this encounter Care Teams Modern Greek Studies Professor Relationship Specialty Start Date End Date Violetta Sanford MD PCP - General 04/02/14 [address] [place] [address] documented as of this encounter
--- OUTSIDE RECORDS SUMMARY | 2022-06-16 12:20 | XMS_ITS | Encounter Summary ---
:1955 Author Organization [facility] Address [facility] [address] [place] [address] Care Team Providers Name Role Phone Violetta Sanford MD Primary Care Provider Encounter Details Date Type Department Care Team Description 05/13/2022 Office Visit Audiology at [facility] Mindy Moody Asymmetrical [facility] AUD sensorineural hearing [address] [facility] [place], [place] CENTER [address] AUDIOLOGY DEPT [phone] [place], [place] [address] Social History Tobacco Use Types Packs/Day Years Used Date Smoking Tobacco: Former Cigarettes 2 20 Quit : 01/19/1993 Smokeless Tobacco: Never Alcohol Use Standard Drinks/Week Comments Yes 0 (1 standard drink = 0.6 oz pure alcoho l) 1 beer monthly Sex Assigned at Date Recorded Not on file documented as of this encounter Progress Notes Mindy Moody, WENDI - 05/13/2022 10:30 AM EDT AUDIOLOGY Leroy Torres was seen today for a hearing aid check. History is positive for asymmetric sensorineural hearing loss. Mr. Torres brought in his [facility] hearing aids for a check. He reported [...] ?? Verification of fit was completed via gblk-juh-weggisoo (REM) using the DSL- Adult prescriptive fitting [...] not hesitate to contact this Section at [phone] if there are questions regarding thisreport or its recommendations. Wendi Ferris Clinical [place] [address] ; HEARING AID(S): HEARING AID RIGHT LEFT Style ITC Same Make/Model Dimitri Ignite 20 Same Casing Color Beige faceplace/ red case Beige faceplate/blue case Serial Number [id number] Battery Size 312 312 Battery Club ? PROGRAM/SETTINGS ? Fitting Algorithm DSL-Adult Same Verification Method REM Same Programs P1= Normal (automatic omnidirectional/directional tiffany) P4= Autocoil (not in memory rotation Same Disabled Features Push button, VC Same Other Comments Vent plug Same HEARING AID WARRANTY ? Original Fit Date 10/25/11 10/25/11 Current Status Under insecticide expert repair and L&D coverage until 11/01/13 Under insecticide expert repair and L&D coverage until 11/01/13 EARMOLD (if BTE GARCIA) ? Lab ? EM (style/material/vent/color) ? Impression Date ? Invoice # ? Tube/KAMILLA (length/dome/honey blender size) ? OTHER/COMMENTS ? documented in this encounter Plan of Treatment Upcoming Encounters Date Type Specialty Care Team Description 06/16/2022 Infusion Hematology and Oncology 06/21/2022 Office Visit Neurology Tyler Rojas MD [facility] Neurology [place], [place] [address] (Wo rk) 06/29/2022 Appointment Cardiology Violetta Sanford M D [address] [place] [address] (Wo rk) 06/30/2022 Infusion Hematology and Oncology 07/14/2022 Infusion Hematology and Oncology 07/28/2022 Infusion Hematology and Oncology 08/11/2022 Infusion Hematology and Oncology 08/16/2022 Office Visit Audiology Mindy Moody AUD [facility] AUDIOLOGY DEPT [place], [place] [address] (Wo rk) 11/04/2022 Office Visit Rheumatology Dante Freedman PA [facility] RHEUMATOLOGY [place], [place] [address] (Wo rk) documented as of this encounter Visit Diagnoses Diagnosis Asymmetrical sensorineural hearing loss Sensorineural hearing loss, asymmetrical documented in this encounter Care Teams Mortgage Loan Officer Relationship Specialty Start Date End Date Violetta Sanford MD PCP - General 04/02/14 [address] [place] [address] documented as of this encounter
--- OUTSIDE RECORDS SUMMARY | 2022-06-16 12:20 | XMS_ITS | Encounter Summary ---
:1955 Author Organization [place] [address] Care Team Providers Name Role Phone Violetta Sanford MD Primary Care Provider Encounter Details Date Type Department Care Team Description 04/21/2022 Telephone Solid Organ [place] [address] Social History Tobacco Use Types Packs/Day [...] Rojas MD [facility] Neurology [place], [place] [address] (Wo rk) 06/29/2022 Appointment Cardiology Violetta Sanford M D [address] [place], [place] [address] (Wo rk) 06/30/2022 Infusion Hematology and Oncology 07/14/2022 Infusion Hematology and Oncology 07/28/2022 Infusion Hematology and Oncology 08/11/2022 Infusion Hematology and Oncology 08/16/2022 Office Visit Audiology Mindy Moody AUD [facility] AUDIOLOGY DEPT [place], [place] [address] (Wo rk) 11/04/2022 Office Visit Rheumatology Dante Freedman PA [facility] RHEUMATOLOGY [place], [place] [address] (Wo rk) documented as of this encounter Visit Diagnoses Not on filedocumented in this encounter Care Teams Fondant Puff Maker Relationship Specialty Start Date End Date Violetta Sanford MD PCP - General 04/02/14 [address] [place], [place] [address] documented as of this encounter
--- OUTSIDE RECORDS SUMMARY | 2022-06-16 12:20 | XMS_ITS | Encounter Summary ---
:1955 Author Organization [facility] [place] [address] Care Team Providers Name Role Phone Violetta Sanford MD Primary Care Provider Encounter Details Date Type Department Care Team Description 05/05/2022 Telephone Gastroenterology at [facility] Kimo Singh MD [facility] [place] [address] GASTROENTEROLOGY [phone] [place], [place] [address] (Oscar rk) Social History Tobacco Use Types Packs/Day [...] Rojas MD [facility] Neurology [place], [place] [address] (Wo rk) 06/29/2022 Appointment Cardiology Violetta Sanford M D [address] [place], [place] [address] (Wo rk) 06/30/2022 Infusion Hematology and Oncology 07/14/2022 Infusion Hematology and Oncology 07/28/2022 Infusion Hematology and Oncology 08/11/2022 Infusion Hematology and Oncology 08/16/2022 Office Visit Audiology Mindy Moody, WENDI [facility] AUDIOLOGY [place], [place] [address] (Wo rk) 11/04/2022 Office Visit Rheumatology Dante Freedman PA [facility] RHEUMATOLOGY [place], [place] [address] (Wo rk) documented as of this encounter Visit Diagnoses Not on filedocumented in this encounter Care Teams Cheese Blender Relationship Specialty Start Date End Date Violetta Sanford MD PCP - General 04/02/14 [address] [place] [address] documented as of this encounter
--- OUTSIDE RECORDS SUMMARY | 2022-06-16 12:20 | XMS_ITS | Encounter Summary ---
:1955 Author Organization [facility] [place] [address] Care Team Providers Name Role Phone Violetta Sanford MD Primary Care Provider Reason for Visit Reason Comments Medication Refill Encounter Details Date Type Department Care Team Description 05/03/2022 Refill Neurology at [facility] Shivam Rojas MD [facility] [place] [address] Neurology [phone] [place], [place] [address] (Wo rk) Social History [...] [facility] Neurology [place], [place] [address] (Wo rk) 06/29/2022 Appointment Cardiology Violetta Sanford M D [address] [place], [place] [id number] (Wo rk) 06/30/2022 Infusion Hematology and Oncology 07/14/2022 Infusion Hematology and Oncology 07/28/2022 Infusion Hematology and Oncology 08/11/2022 Infusion Hematology and Oncology 08/16/2022 Office Visit Audiology Mindy Moody, WENDI [facility] AUDIOLOGY [place], [place] [address] (Wo rk) 11/04/2022 Office Visit Rheumatology Dante Freedman PA [facility] RHEUMATOLOGY [place], [place] [address] (Wo rk) documented as of this encounter Visit Diagnoses Not on filedocumented in this encounter Care Teams Information Scientist Relationship Specialty Start Date End Date Violetta Sanford MD PCP - General 04/02/14 [address] [place], [place] [address] documented as of this encounter
--- OUTSIDE RECORDS SUMMARY | 2022-06-16 12:20 | XMS_ITS | Encounter Summary ---
:1955 Author Organization [facility] [place] [address] Care Team Providers Name Role Phone Violetta Sanford MD Primary Care Provider Encounter Details Date Type Department Care Team Description 05/10/2022 Telephone Gastroenterology at [facility] [place] [address] Social History Tobacco Use Types Packs/Day [...] Tyler Rojas MD [facility] Neurology [place], [place] [address] (Wo rk) 06/29/2022 Appointment Cardiology Violetta Sanford M D [facility] [address] [address] (Wo rk) 06/30/2022 Infusion Hematology and Oncology 07/14/2022 Infusion Hematology and Oncology 07/28/2022 Infusion Hematology and Oncology 08/11/2022 Infusion Hematology and Oncology 08/16/2022 Office Visit Audiology Mindy Moody AUD [facility] AUDIOLOGY DEPT [place], [place] [address] (Wo rk) 11/04/2022 Office Visit Rheumatology Dante Freedman PA [facility] RHEUMATOLOGY [place], [place] [address] (Wo rk) Scheduled Orders Name Type Priority Associated Diagnoses Order S chedule Tacrolimus level Lab Routine Monika esophagitis Expe cted: 05/24/2022 (Approximate), Expires: 11/23/2022 documented as of this encounter Results Tacrolimus level (05/13/2022 11:34 AM EDT) athologist Signature Tacrolimus Lvl 3.6 ng/mL [facility] Comment: Trough therapeutic range [...] Address City/State/[place] [address] documented in this encounter Visit Diagnoses Diagnosis Monika esophagitis Candidiasis of the esophagus documented in this encounter Care Teams Broadcast Checker Relationship Specialty Start Date End Date Violetta Sanford MD PCP - General 04/02/14 [address] [place] [address] documented as of this encounter
--- OUTSIDE RECORDS SUMMARY | 2022-06-16 12:20 | XMS_ITS | Encounter Summary ---
:1955 Author Organization [facility] [place] [address] Care Team Providers Name Role Phone Violetta Sanford MD Primary Care Provider Encounter Details Date Type Department Care Team Description 06/08/2022 Telephone Solid Organ Transplant at Taj Garrison APRN [facility] Giovana tyler [place] [address] [place] [address] [phone] (Wo rk) Social History Tobacco Use Types [...] Telephone Encounter - Taj Lloyd APRN - 06/08/2022 12:17 PM EST Received the following phone message: ----- Message ----- From: Abiola Kelly Sent: 06/07/2022 ??10:04 AM EST To: [facility] Trans[facility] Nurse Subject: please call ? His doctor, Dr.Dana Sanford said she spoke with Dr. Garnett and he suggested that Reuben get Evusheld. Is this true? ?? TC to patient to let him know that he has made COVID spike antibodies. As long as he has received 4 COVID vaccinations, Evusheld is not warranted. I received his VM. I left a message requesting a return call. documented in this encounter Plan of Treatment Upcoming Encounters Date Type Specialty Care Team Description 06/16/2022 Infusion Hematology and Oncology 06/21/2022 Office Visit Neurology Tyler Rojas MD [facility] Neurology [place], [place] [address] (Wo rk) 06/29/2022 Appointment Cardiology Violetta Sanford M D [address] [place], [place] [address] (Wo rk) 06/30/2022 Infusion Hematology and Oncology 07/14/2022 Infusion Hematology and Oncology 07/28/2022 Infusion Hematology and Oncology 08/11/2022 Infusion Hematology and Oncology 08/16/2022 Office Visit Audiology Mindy Moody AUD [facility] AUDIOLOGY [place], [place] [address] (Wo rk) 11/04/2022 Office Visit Rheumatology Dante Freedman PA [facility] RHEUMATOLOGY [place], [place] [address] (Wo rk) documented as of this encounter Visit Diagnoses Not on filedocumented in this encounter Care Teams Commercial Technician Relationship Specialty Start Date End Date Violetta Sanford MD PCP - General 04/02/14 [address] [place], [place] [address] documented as of this encounter
--- OUTSIDE RECORDS SUMMARY | 2022-06-16 12:20 | XMS_ITS | Encounter Summary ---
:1955 Author Organization [facility] [place] [address] Care Team Providers Name Role Phone Violetta Sanford MD Primary Care Provider Encounter Details Date Type Department Care Team Description 06/07/2022 Telephone Otolaryngology at [facility] [place] [address] Social History Tobacco Use Types Packs/Day Years Used Date Smoking Tobacco: Former Cigarettes 2 20 Quit : 01/19/1993 Smokeless Tobacco: Never Alcohol Use Standard Drinks/Week Comments Yes 0 (1 standard drink = 0.6 oz pure alcoho l) 1 beer monthly Sex Assigned at Date Recorded Not on file documented as of this encounter Miscellaneous Notes Telephone Encounter - Eulalia Urban RN - 06/07/2022 3:00 PM EST MTCB re:I'm still waiting to schedule my appointment to get the tube put back in. Appointment notefrDA Cain, on 05/26 is still open. VM left stating once the note has been completed, then the schedulers will reach out to schedule the FUV. Call back number left. documented in this encounter Plan of Treatment Upcoming Encounters Date Type Specialty Care Team Description 06/16/2022 Infusion Hematology and Oncology 06/21/2022 Office Visit Neurology Tyler Rojas MD [facility] [address] [place], [place] [address] (Wo rk) 06/29/2022 Appointment Cardiology Violetta Sanford M D [address] [place], [place] [address] (Wo rk) 06/30/2022 Infusion Hematology and Oncology 07/14/2022 Infusion Hematology and Oncology 07/28/2022 Infusion Hematology and Oncology 08/11/2022 Infusion Hematology and Oncology 08/16/2022 Office Visit Audiology Mindy Moody, WENDI [facility] ER AUDIOLOGY DEPT [place], [place] [address] (Wo rk) 11/04/2022 Office Visit Rheumatology Dante Freedman, [facility] ER RHEUMATOLOGY [place], [place] [address] (Wo rk) documented as of this encounter Visit Diagnoses Not on filedocumented in this encounter Care Teams Rubber Compounder Relationship Specialty Start Date End Date Violetta Sanford MD PCP - General 04/02/14 [address] [place], [place] [address] documented as of this encounter
--- OUTSIDE RECORDS SUMMARY | 2022-06-16 12:20 | XMS_ITS | Encounter Summary ---
:1955 Author Organization [facility] Address [address] [place] [address] Care Team Providers Name Role Phone Suhas Chowdhury MD Primary Care Provider Unavailable Encounter Details Date Type Department Care Team Description 11/27/2009 Hospital Encounter [facility] Chowdhury, Medical Office [facility] dayne HAWK [phone] Social History Tobacco Use Types Packs/Day Years Used Date Smoking Tobacco: Never Assessed Sex Assigned at Date Recorded Not on file documented as of this encounter Discharge Disposition Disposition Code Departure Means Destination Home or Self Skilled Nursing documented in this encounter Plan of Treatment Not on filedocumented as of this encounter Visit Diagnoses Not on filedocumented in this encounter Care Teams Bread Dough Mixer Relationship Specialty Start Date End Date Suhas Chowdhury MD PCP - General 10/09/09 04/05/16 documented as of this encounter
--- OUTSIDE RECORDS SUMMARY | 2022-06-16 12:20 | XMS_ITS | Encounter Summary ---
:1955 Author Organization [facility] Address [address] [place] [address] Care Team Providers Name Role Phone Suhas Chowdhury MD Primary Care Provider Unavailable Encounter Details Date Type Department Care Team Description 04/30/2010 Results Only [facility] Juan Jose Chiu, [address] [place], [place] [id number] (Wo rk) Social History Tobacco Use Types Packs/Day Years Used Date Smoking Tobacco: Never Assessed Sex Assigned at Date Recorded Not on file documented as of this encounter Plan of Treatment Not on filedocumented as of this encounter Procedures Procedure Name Priority Date/Time Associated Diagnosis Comme [facility] SURGICAL PATHOLOGY Routine 04/30/2010 0:00 EDT Re sults for this procedure are i n the results section. documented in this encounter Results SURGICAL PATHOLOGY (04/30/2010 0:00 EDT) Component Value Ref Test Analysis Performed At [facility] Method Time Signature Pathology SURGICAL PATHOLOGY REPORT ? ALONZO HER Report: Reports generated via electr Finicity interface contain original data; ? CLEMENT BORREGO however they are lacking the format of the original report. ? Caution should be taken when reading/interpreting unformatted reports. ? Name: ? ASIM, BRETT O ? Accession #: ? [id number] ? : ? 1955 (Age: 54) ??M ? Collec t Date: ? 04/30/2010 ? Location: ? [facility] ? Re ceive Date: ? 05/01/2010 ? Provider: JUAN JOSE M FITZPATR ICK DO ? Copy to: SUHAS CHOWDHURY MD ? Final Pathologic Diagnosis: ? A. [...] mild chronic ? inflammation. ? Comment: ? [employer]er sectio ns have been reviewed at the intradepartmental ? consultation conference. (Dr Jeffery Martínez)/[facility] ? Document reviewed and electr onically signed by: ? EVAN MOSESNOBrynn HAWK ? Report ??Date: 05/05/2010 16 :47 ? [...] meds ? End of Report ? Specimen (Source) Anatomical Collection Method Collection Time Re ceived Time Location / / Volume Laterality 04/30/2010 05/01/2010 8:57 EDT Juan Jose Chiu DO PATHOLOGY ORDERABLES Performing Organization Address City/State/ZIP Code Phon e Number [facility] [address] [place] [address] SERVICES [facility] [address] [place] [address] documented in this encounter Visit Diagnoses Not on filedocumented in this encounter Care Teams Wallpaper Hanger Helper Relationship Specialty Start Date End Date Suhas Chowdhury MD PCP - General 10/09/09 04/05/16 documented as of this encounter
--- OUTSIDE RECORDS SUMMARY | 2022-06-16 12:20 | XMS_ITS | Encounter Summary ---
:1955 [place] [address] Care Team Providers Name Role Phone Violetta Sanford MD Primary Care Provider Encounter Details Date Type Department Care Team Description 05/07/2022 Telephone Audiology [place] [facility] [place] [address] Social History Tobacco Use Types Packs/Day [...] 05/07/2022 10:27 AM EDT Called patient at [phone], calling to schedule: Please also arrange for [facility] appointment with Audiology for reevaluation of his hearing aids. Patientseen previously - patient of Mindy Moody HT done February 2022 in chart Left generic voicemail for patient to callback. documented in this encounter Plan of Treatment Upcoming Encounters Date Type Specialty Care Team Description 06/16/2022 Infusion Hematology and Oncology 06/21/2022 Office Visit Neurology Tyler Rojas MD [facility] Neurology [place], [place] [phone] (Wo rk) 06/29/2022 Appointment Cardiology Violetta Sanford M D [address] [place], [place] [address] (Wo rk) 06/30/2022 Infusion Hematology and Oncology 07/14/2022 Infusion Hematology and Oncology 07/28/2022 Infusion Hematology and Oncology 08/11/2022 Infusion Hematology and Oncology 08/16/2022 Office Visit Audiology Mindy Moody, [facility] AUDIOLOGY DEPT [place], [place] [address] (Wo rk) 11/04/2022 Office Visit Rheumatology Dante Freedman PA [facility] RHEUMATOLOGY [place], [place] [address] (Wo rk) documented as of this encounter Visit Diagnoses Not on filedocumented in this encounter Care Teams Apparatus Repair Mechanic Relationship Specialty Start Date End Date Violetta Sanford MD PCP - General 04/02/14 [address] [place], [place] [address] documented as of this encounter
--- OUTSIDE RECORDS SUMMARY | 2022-06-16 12:20 | XMS_ITS | Encounter Summary ---
:1955 Author Organization [facility] Address [facility] [address] [place] [address] Care Team Providers Name Role Phone Violetta Sanford MD Primary Care Provider Reason for Visit Reason Comments Follow-up Everything is going goodLeft ear is hard of hearing Encounter Details Date Type Department Care Team Description 04/28/2022 Office Visit Otolaryngology at [facility] Iraj Scott R, Left chronic serous otitis m edia; [facility] ETGiovana (Eustachian tube dysfunction), left; [facility] Mixed conductive and sensori neural hearing loss of left ear with restricted hearing of right ear; [place] [address] CENTER H/O kidney transplant; [phone] 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 Bone-conduction thresholds essentially symmetric. Speech director social thresholds at 30 dB for the right [...] the left. Bone-conduction thresholds essentially symmetric. Speech director social thresholds at 20 dB for the right [...] COPD (chronic obstructive pulmonary disease) J44.9 ??? care home current use of immunosuppressive drug Z79.899 ??? [...] Gilberto 2 Sensor Kit 1 each by [facility]Non-Drug; Combo Route) route every 14 days. Use to continuously monitor blood glucose. Scan at least 4 times per day. 6 kit 3 ??? FreeStyle Gilberto 2 [place] [facility] Use to continuously monitor blood glucose. Scan [...] 14 Day Sensor Kit 1 each by [facility]Non-Drug; Combo Route) route every 14 [...] Blood-Glucose Sensor (Dexcom G6 Sensor) Device by [facility]Non-Drug; Combo Route) route. Sensor, hospice educator andtransmitter ??? metoprolol succinate XL (Toprol-XL) 50 mg Tablet Sustained Release 24 hr Take 1 tablet by mouth daily. 90 tablet 1 ??? amLODIPine (Norvasc) 10 mg Tablet Take 0.5 tablets by mouth daily. 90 tablet 3 ??? fluticasone propionate (FLONASE) 50 mcg/actuation [place], Suspension INSTILL 2 SPRAYS INTO EACH NOSTRIL [...] Reported on 08/06/2016 ??? Miscellaneous Medical Supply [facility] [...] Biopsy Bone Marrow 10/22/2021 Richar Lo MD [facility] RAD CT SCAN ??? PRO AMPUTATION LOW LEG THRU TIB/FIB 06/21/2011 ??AMPUTATION, BELOW-KNEE performed by HENNA GAMINO JR at [facility] OR ??? PRO CREATE EARDRUM OPENING, GEN ANESTH Left 02/09/2022 MYRINGOTOMY, INSERTION OF TUBE (WRVU 2.01) performed by Archie Avila MD at [facility] MAIN OR ??? PRO INCISION EARDRUM,ASPIR Left 12/29/2021 MYRINGOTOMY ASPIRATION OF MIDDLE EAR (WRVU 1.38) performed by Iraj Scott MD at [facility] OR ??? PRO LAP, APPENDECTOMY 06/16/2013 LAPAROSCOPIC APPENDECTOMY performed by Angel Mccann MD at [facility] OR ??? PRO MICROSURG TECHNIQUES, REQ OPER MICROSCOPE Left 12/29/2021 MICROSCOPE USE (WRVU 3.46) performed by Iraj Scott MD at [facility] MAIN OR ??? PRO MICROSURG TECHNIQUES, REQ OPER MICROSCOPE Left 02/09/2022 MICROSCOPE USE (WRVU 3.46) performed by Archie Avila MD at [facility] OR ??? PRO UPPER GI ENDOSCOPY, BIOPSY N/A 04/19/2022 EGD WITH BIOPSY (WRVU 2.49) performed by Kimo Singh MD at [facility] ENDOSCOPY ??? US RENAL TRANSPLANT LEFT Left 06/26/2019 US Renal Transplant Left 06/26/2019 [facility] RAD ULTRASOUND Family and Social History Family History: No family history on file. Social History: Lives [place] [facility] [address] Social History Socioeconomic History ??? Marital status: [...] adjusted. He was originally fitted through the [facility]. Desires follow-up HAC and we advised that [...] Rojas MD [facility] Neurology [place], [place] [phone] (Wo rk) 06/29/2022 Appointment Cardiology Violetta Sanford M D [address] [place], [place] [address] (Wo rk) 06/30/2022 Infusion Hematology and Oncology 07/14/2022 Infusion Hematology and Oncology 07/28/2022 Infusion Hematology and Oncology 08/11/2022 Infusion Hematology and Oncology 08/16/2022 Office Visit Audiology Mindy Moody AUD [facility] AUDIOLOGY DEPT [place], [place] [address] (Wo rk) 11/04/2022 Office Visit Rheumatology Dnate Freedman PA [facility] RHEUMATOLOGY [place], [place] [address] (Wo rk) documented as of this encounter Visit Diagnoses Diagnosis Left chronic serous otitis media Simple or unspecified chronic serous beth tis media ETD (Eustachian tube dysfunction), left Mixed conductive and sensorineural heari ng loss of left ear with restricted hearing of right ear H/O kidney transplant 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
--- OUTSIDE RECORDS SUMMARY | 2022-06-16 12:20 | XMS_ITS | Encounter Summary ---
:1955 Author Organization [facility] [place] [address] Care Team Providers Name Role Phone Violetta Sanford MD Primary Care Provider Reason for Visit Reason Onset Date Comments Labs Only 04/21/2022 Lab tracking Encounter Details Date Type Department Care Team Description 04/21/2022 Telephone Hematology/Oncology at Brittany Vera RN Labs Only (Lab tracking) [address] [address] Social History Tobacco Use [...] 8:55 AM EDT LAB TRACKING Leroy Torres [id number] 1955 ?? DIAGNOSIS: Anemia d/t CKD stage [...] Tyler Rojas MD [facility] Neurology [place], [place] [phone] (Wo rk) 06/29/2022 Appointment Cardiology Violetta Sanford M D [address] [place], [place] [phone] (Wo rk) 06/30/2022 Infusion Hematology and Oncology 07/14/2022 Infusion Hematology and Oncology 07/28/2022 Infusion Hematology and Oncology 08/11/2022 Infusion Hematology and Oncology 08/16/2022 Office Visit Audiology Mindy Moody AUD [facility] AUDIOLOGY [place], [place] [address] (Wo rk) 11/04/2022 Office Visit Rheumatology Dante Freedman, DA [facility] RHEUMATOLOGY [place], [place] [address] (Wo rk) documented as of this encounter Visit Diagnoses Not on filedocumented in this encounter Care Teams Clerk Carrier Relationship Specialty Start Date End Date Violetta Sanford MD PCP - General 04/02/14 [address] [place], [place] [address] documented as of this encounter
--- OUTSIDE RECORDS SUMMARY | 2022-06-16 12:20 | XMS_ITS | Encounter Summary ---
:1955 Author Organization [place] [address] Care Team Providers Name Role Phone Violetta Sanford MD Primary Care Provider Encounter Details Date Type Department Care Team Description 05/13/2022 Laboratory Appointment Lab 3L [facility] [place] [phone] Social History Tobacco Use Types Packs/Day Years [...] Tyler Rojas MD [facility] Neurology [place], [place] [phone] (Wo rk) 06/29/2022 Appointment Cardiology Violetta Sanford M D [address] [place] [address] (Wo rk) 06/30/2022 Infusion Hematology and Oncology 07/14/2022 Infusion Hematology and Oncology 07/28/2022 Infusion Hematology and Oncology 08/11/2022 Infusion Hematology and Oncology 08/16/2022 Office Visit Audiology Mindy Moody, [facility] AUDIOLOGY DEPT [place], [place] [address] (Wo rk) 11/04/2022 Office Visit Rheumatology Dante Freedman PA [facility] RHEUMATOLOGY [place], [place] [address] (Wo rk) documented as of this encounter Procedures Procedure Name Priority Date/Time Associated Diagnosis Comme nts HC FK-[id number] Routine 05/13/2022 11:34 AM Monika esophagitis R esults for this (TACROLIMUS) EDT procedure are i n the results section. documented in this encounter Results Tacrolimus level (05/13/2022 11:34 AM EDT) athologist Signature Tacrolimus Lvl 3.6 ng/mL PROCTOR [...] Organization Address City/State/[place] [address] documented in this encounter Visit Diagnoses Diagnosis Monika esophagitis Candidiasis of the esophagus documented in this encounter Care Teams Medical Staff Credentialing Coordinator Relationship Specialty Start Date End Date Violetta Sanford MD PCP - General 04/02/14 [address] [place] [address] documented as of this encounter
--- OUTSIDE RECORDS SUMMARY | 2022-06-16 12:20 | XMS_ITS | Encounter Summary ---
:1955 Author Organization [facility] [place] [address] Care Team Providers Name Role Phone Violetta Sanford MD Primary Care Provider Reason for Visit Reason Comments Injections Aranesp injection Treatment/Therapy Plan Authorization (Routine) - Authorized Specialty Diagnoses / Procedures Referred By Contact Refer red To Contact Hematology and Diagnoses CKD (chronic kidney disease) stage 4, GFR 15-29 ml/min Nicky Baez Elizabeth Oncology Procedures MD James NUR MD [address] HEMATOLOGY/ONCOLOGY [place], [place] DEPT. [address] [place] [address] Referral ID Status Reason Start Date Expiration Date Visits V isits Requested Authorized [id number] Authorized 10/08/2020 07/24/2023 99 99 Encounter Details Date Type Department Care Team Description 06/02/2022 Infusion Hematology Oncology at [facility] D (chronic kidney disease) [facility] stage 4, GFR 15-29 ml/min [address] [place] [phone] Social History Tobacco Use Types [...] encounter Progress Notes Millie Kc RN - 06/02/2022 1:30 PM EST Infusion Note Diagnosis: CKD/SHAYAN anemia Treatment: Aranesp Injection Labs: 05/19/22 - H/H - 9.6/31.1, Ferritin - 99 on 05/19/22. Aranesp 300 mcg injected in right arm. Patient aware to call clinic with any questions or concerns. Plan: Return to clinic as scheduled. documented in this encounter Plan of Treatment Upcoming Encounters Date Type Specialty Care Team Description 06/16/2022 Infusion Hematology and Oncology 06/21/2022 Office Visit Neurology Tyler Rojas MD [facility] Neurology [place], [place] [phone] (Wo rk) 06/29/2022 Appointment Cardiology Violetta Sanford M D [facility] [address] [address] (Wo rk) 06/30/2022 Infusion Hematology and Oncology 07/14/2022 Infusion Hematology and Oncology 07/28/2022 Infusion Hematology and Oncology 08/11/2022 Infusion Hematology and Oncology 08/16/2022 Office Visit Audiology Mindy Moody AUD [facility] AUDIOLOGY [place], [place] [address] (Wo rk) 11/04/2022 Office Visit Rheumatology Dante Freedman PA [facility] RHEUMATOLOGY [place] [address] (Wo rk) documented as of this encounter Visit Diagnoses Diagnosis CKD (chronic kidney disease) stage 4, GF R 15-29 ml/min Chronic kidney disease, Stage IV (severe ) documented in this encounter Administered Medications Inactive Administered Medications - up to 3 most recent administrations Medication Order MAR Action Action Date Dose Rate Site darbepoetin cristy-polysorbate Given 06/02/2022 1:48 PM EST 300 mc g Right Arm (Aranesp) (300 mcg/0.6 mL) injection 300 mcg 300 mcg, Subcutaneous, ONCE, 1 dose, On Tue06/02/22 at 1345, Hold parameters for MDS and chemotherapy-induced anemia: Hemoglobin greater than or equal to 10 gm/dL Hematocrit greater than or equal to 30% Hold parameters for CKD: Hemoglobin greater than or equal to 12 gm/dL Hematocrit greater than or equal to 36%, Routine, What is the indication of use? Chronic Kidney Disease (CKD) documented in this encounter Care Teams Satellite Dish Installer Relationship Specialty Start Date End Date Violetta Sanford MD PCP - General 04/02/14 [address] [place] [address] documented as of this encounter
--- OUTSIDE RECORDS SUMMARY | 2022-06-16 12:20 | XMS_ITS | Encounter Summary ---
:1955 Author Organization [facility] Address [facility] [place] [address] Care Team Providers Name Role Phone Violetta Sanford MD Primary Care Provider Reason for Visit Reason Onset Date Comments Medication Refill 05/04/2022 Encounter Details Date Type Department Care Team Description 05/04/2022 Refill Neurology at [facility] Shivam Rojas MD [facility] [place] [address] Neurology [phone] [place], [place] [phone] (Wo rk) Social History [...] 06/21/2022 Office Visit Neurology Tyler Rojas MD [facility] Neurology [place], [place] [phone] (Wo rk) 06/29/2022 Appointment Cardiology Violetta Sanford M D [address] [place], [place] [address] (Wo rk) 06/30/2022 Infusion Hematology and Oncology 07/14/2022 Infusion Hematology and Oncology 07/28/2022 Infusion Hematology and Oncology 08/11/2022 Infusion Hematology and Oncology 08/16/2022 Office Visit Audiology Mindy Moody AUD [facility] AUDIOLOGY [place], [place] [address] (Wo rk) 11/04/2022 Office Visit Rheumatology Dante Freedman PA [facility] RHEUMATOLOGY [place], [place] [address] (Wo rk) documented as of this encounter Visit Diagnoses Not on filedocumented in this encounter Care Teams House Carpenter Relationship Specialty Start Date End Date Violetta Sanford MD PCP - General 04/02/14 [address] [place], [place] [address] documented as of this encounter
--- OUTSIDE RECORDS SUMMARY | 2022-06-16 12:20 | XMS_ITS | Encounter Summary ---
:1955 Author Organization [place] [place] [address] Care Team Providers Name Role Phone Violetta Sanford MD Primary Care Provider Encounter Details Date Type Department Care Team Description 05/14/2022 Telephone Gastroenterology at [facility] Melly Arambula MD [facility] [place] [address] GASTROENTEROLOGY [phone] [place], [place] [address] (Wo rk) Social History Tobacco [...] the next lab draw be sent to [facility]. Melly Arambula MD Advanced Endoscopy Fellow Department of Gastroenterology documented in this encounter Plan of Treatment Upcoming Encounters Date Type Specialty Care Team Description 06/16/2022 Infusion Hematology and Oncology 06/21/2022 Office Visit Neurology Tyler Rojas MD [facility] Neurology [place], [place] [phone] (Wo rk) 06/29/2022 Appointment Cardiology Violetta Sanford M D [address] [place], [place] [phone] (Wo rk) 06/30/2022 Infusion Hematology and Oncology 07/14/2022 Infusion Hematology and Oncology 07/28/2022 Infusion Hematology and Oncology 08/11/2022 Infusion Hematology and Oncology 08/16/2022 Office Visit Audiology Mindy Moody AUD [facility] [place]IOLOGY [place], [place] [address] (Wo rk) 11/04/2022 Office Visit Rheumatology Dante Freedman PA [facility] RHEUMATOLOGY [place], [place] [address] (Wo rk) Scheduled Orders Name Type Priority Associated Diagnoses Order S chedule Tacrolimus level Lab Routine Monika esophagitis Expe cted: 05/24/2022 (Approximate), Expires: 11/23/2022 documented as of this encounter Visit Diagnoses Diagnosis Monika esophagitis - Primary Candidiasis of the esophagus documented in this encounter Care Teams Seedling Puller Relationship Specialty Start Date End Date Violetta Sanford MD PCP - General 04/02/14 [address] [place], [place] [id number] documented as of this encounter
--- OUTSIDE RECORDS SUMMARY | 2022-06-16 12:20 | XMS_ITS | Encounter Summary ---
:1955 Author Organization [facility] [place] [address] Care Team Providers Name Role Phone Violetta Sanford MD Primary Care Provider Encounter Details Date Type Department Care Team Description 06/14/2022 Telephone Audiology at [facility] [place] [place] [address] Social History Tobacco Use Types Packs/Day Years Used Date Smoking Tobacco: Former Cigarettes 2 20 Quit : 01/19/1993 Smokeless Tobacco: Never Alcohol Use Standard Drinks/Week Comments Yes 0 (1 standard drink = 0.6 oz pure alcoho l) 1 beer monthly Sex Assigned at Date Recorded Not on file documented as of this encounter Miscellaneous Notes Telephone Encounter - Aria Colón - 06/14/2022 10:00 AM EST Pt called requesting HAC. documented in this encounter Plan of Treatment Upcoming Encounters Date Type Specialty Care Team Description 06/16/2022 Infusion Hematology and Oncology 06/21/2022 Office Visit Neurology Tyler Rojas MD [facility] Neurology [place], [place] [phone] (Oscar escobedo) 06/29/2022 Appointment Cardiology Violetta Sanford M D [address] [place] [address] [address] [place], [place] [phone] (Wo rk) 06/30/2022 Infusion Hematology and Oncology 07/14/2022 Infusion Hematology and Oncology 07/28/2022 Infusion Hematology and Oncology 08/11/2022 Infusion Hematology and Oncology 08/16/2022 Office Visit Audiology Mindy Moody AUD [facility] AUDIOLOGY [place], [place] [address] (Wo rk) 11/04/2022 Office Visit Rheumatology Dante Freedman, DA [facility] RHEUM[facility] [place], [place] [address] (Wo rk) documented as of this encounter Visit Diagnoses Not on filedocumented in this encounter Care Teams Assembly Manager Relationship Specialty Start Date End Date Violetta Sanford MD PCP - General 04/02/14 [facility] [address] [facility] [place] [address] documented as of this encounter
--- OUTSIDE RECORDS SUMMARY | 2022-06-16 12:20 | XMS_ITS | Encounter Summary ---
:1955 Author Organization [facility] Address [address] [place] [address] Care Team Providers Name Role Phone Suhas Chowdhury MD Primary Care Provider Unavailable Encounter Details Date Type Department Care Team Description 04/02/2016 Results Only [facility], [address] [place] [address] (Wo rk) Social History Tobacco Use Types Packs/Day Years Used Date Smoking Tobacco: Never Assessed Sex Assigned at Date Recorded Not on file documented as of this encounter Plan of Treatment Not on filedocumented as of this encounter Procedures Procedure Name Priority Date/Time Associated Diagnosis Comme [facility] SURGICAL PATHOLOGY Routine 04/02/2016 12:32 Resul ts for this EDT procedure are i n the results section. documented in this encounter Results SURGICAL PATHOLOGY (04/02/2016 12:32 EDT) Component Value Ref Test Analysis Performed At [facility] Method Time Signature Pathology SURGICAL PATHOLOGY REPORT [facility] MEDICAL Report: Reports generated via electronic interface contain origina l data; CENTER however they are lacking the format of the original report. LABORATORY Caution should be taken when reading/interpreting unformat milli reports. SERVICES Name: ? BRETT TORRES ? Accession #: ? [id number] ? : ? 1955 (Age: 60) ??M ? Collect Date: ? 04/02/2016 ? Location: ? [facility] ? Receive Date: ? 04/02/2016 ? Provider: ELVIN HUTCHISON DO Copy to: ELVIN HUTCHISON DO LEX DEVI MD ? Final Pathologic Diagnosis: STOMACH, ANTRUM, BIOPSY: - Erosive gastritis in a background of m arked reactive (chemical) gastropathy. - Immunohistochemical staining for Helicobacter pylori is ne gative. Comment: ANTIBODY (CLONE)(BLOCK):RESULT H PYLORI (Rabbit Monoclonal (SP48), [place]) (block one): Ne gatroderick. NOTE: ??One or more of the reagents used in imm unoperoxidase testing in this case may not have been cleared or approved by the U.S. Food and Drug Administration (FDA). ??The FDA has determined that such clearance or approval is not necessary. ??These tests are used for clinical purposes. ??They should not be regarded as investigational or for research. ??These reagent s' performance characteristics have been determined by [facility]. ??The positive and negative controls worked appropri ately. This laboratory is certified unde r the Clinical Laboratory Improvement Amendments of 1988 (CLIA-88) as qualified to perform high complexity clini gabriel laboratory testing. ?? Document reviewed and electronically signed by: FABIOLA IRELAND MD Report ??Date: 04/08/2016 07:47 By the signature above, the attending physician certifies th at he/she has personally conducted a gross and/or microscopic examin ation of the described specimens and rendered or confirmed the above diagnosis. Specimen(s) Received: Antral bxs Clinical History: Dysphagia Gross Description: ? Received in formalin labelled with proper patient identification (initials R, R) and antral bx is a single aiken-yellow tis roshan fragment (0.4 x 0.3 x 0.2 cm). The specimen is bisected and submitted in 1. Alejandra Christianson 04/05/2016 2:36 PM End of Report Specimen Anatomical Collection Method Collection Time Receive d Time (Source) Location / / Volume Laterality 04/02/2016 12:32 04/02/2016 EDT 12:32 EDT Elvin Hutchison DO PATHOLOGY ORDERABLES Performing Organization Address City/State/ZIP Code Phon e Number [facility] [address] [place] [address] SERVICES documented in this encounter Visit Diagnoses Not on filedocumented in this encounter Care Teams Upholstered Goods Crafter Relationship Specialty Start Date End Date Suhas Chowdhury MD PCP - General 10/09/09 04/05/16 documented as of this encounter
--- OUTSIDE RECORDS SUMMARY | 2022-06-16 12:20 | XMS_ITS | Encounter Summary ---
:1955 Author Organization [facility] [place] [address] Care Team Providers Name Role Phone Violetta Sanford MD Primary Care Provider Encounter Details Date Type Department Care Team Description 05/21/2022 External Results [place] [address] Social History Tobacco Use Types Packs/Day [...] Rojas MD [facility] Neurology [place], [place] [phone] (Wo rk) 06/29/2022 Appointment Cardiology Violetta Sanford M D [facility] [address] [place], [place] [address] (Oscar rk) 06/30/2022 Infusion Hematology and Oncology 07/14/2022 Infusion Hematology and Oncology 07/28/2022 Infusion Hematology and Oncology 08/11/2022 Infusion Hematology and Oncology 08/16/2022 Office Visit Audiology Mindy Moody AUD [facility] AUDIOLOGY DEPT [place], [place] [address] (Wo rk) 11/04/2022 Office Visit Rheumatology Dante Freedman PA [facility] RHEUMATOLOGY [place], [place] [address] (Wo rk) documented as of this encounter Procedures Procedure Name Priority Date/Time Associated Diagnosis Comme nts LAB SCAN Routine 05/19/2022 Results for thi s procedure are in the resu lts section. documented in this encounter Results Scan Doc: Lab (05/19/2022) Narrative This result has an attachment that is no t available. Historical Provider MD MEDIA MGR SCAN EXT ORDR/RSLT documented in this encounter Visit Diagnoses Not on filedocumented in this encounter Care Teams Tree Marker Relationship Specialty Start Date End Date Violetta Sanford MD PCP - General 04/02/14 [address] [place] [address] documented as of this encounter
--- OUTSIDE RECORDS SUMMARY | 2022-06-16 12:20 | XMS_ITS | Encounter Summary ---
:1955 Author Organization [facility] [place] [address] Care Team Providers Name Role Phone Violetta Sanford MD Primary Care Provider Encounter Details Date Type Department Care Team Description 05/13/2022 Telephone Otolaryngology at [facility] [place] [address] Social History Tobacco Use Types Packs/Day Years [...] Visit Neurology Tyler Rojas MD [facility] [address] [place], [place] [phone] (Wo rk) 06/29/2022 Appointment Cardiology Violetta Sanford M D [address] [place] [address] (Wo rk) 06/30/2022 Infusion Hematology and Oncology 07/14/2022 Infusion Hematology and Oncology 07/28/2022 Infusion Hematology and Oncology 08/11/2022 Infusion Hematology and Oncology 08/16/2022 Office Visit Audiology Mindy Moody, [facility] AUDIOLOGY [place], [place] 0[address] (Wo rk) 11/04/2022 Office Visit Rheumatology Dante Freedman, PA [facility] RHEUMATOLOGY [place], [place] [address] (Wo rk) documented as of this encounter Visit Diagnoses Not on filedocumented in this encounter Care Teams Director Network Development Relationship Specialty Start Date End Date Violetta Sanford MD PCP - General 04/02/14 [address] [place] [address] documented as of this encounter
--- OUTSIDE RECORDS SUMMARY | 2022-06-16 12:20 | XMS_ITS | Encounter Summary ---
:1955 Author Organization [facility] [place] [address] Care Team Providers Name Role Phone Violetta Sanford MD Primary Care Provider Encounter Details Date Type Department Care Team Description 04/26/2022 External Results [place] [address] Social History Tobacco Use Types Packs/Day [...] Rojas MD [facility] Neurology [place], [place] [phone] (Wo rk) 06/29/2022 Appointment Cardiology Violetta Sanford M D [address] [place] [address] [address] [place], [place] [address] (Oscar rk) 06/30/2022 Infusion Hematology and Oncology 07/14/2022 Infusion Hematology and Oncology 07/28/2022 Infusion Hematology and Oncology 08/11/2022 Infusion Hematology and Oncology 08/16/2022 Office Visit Audiology Mindy Moody AUD [facility] AUDIOLOGY DEPT [place], [place] [address] (Wo rk) 11/04/2022 Office Visit Rheumatology Dante Freedman PA [facility] RHEUMATOLOGY [place], [place] [address] (Wo rk) documented as of [...] on filedocumented in this encounter Care Teams Cisco Unified Communications Engineer Relationship Specialty Start Date End Date Violetta Sanford MD PCP - General 04/02/14 [address] [place] [address] documented as of this encounter
--- OUTSIDE RECORDS SUMMARY | 2022-06-16 12:20 | XMS_ITS | Encounter Summary ---
:1955 Author Organization [facility] [place] [address] Care Team Providers Name Role Phone Violetta Sanford MD Primary Care Provider Reason for Visit Reason Comments Injections Aranesp Treatment/Therapy Plan Authorization (Routine) - Authorized Specialty Diagnoses / Procedures Referred By Contact Refer red To Contact Hematology and Diagnoses CKD (chronic kidney disease) stage 4, GFR 15-29 ml/min Nicky Baez Elizabeth Oncology Procedures ALFREDA Ramirez MD MMD [address] HEMATOLOGY/ONCOLOGY [place], [place] DEPT. [address] [place] [address] Referral ID Status Reason Start Date Expiration Date Visits V isits Requested Authorized [id number] Authorized 10/08/2020 07/24/2023 99 99 Encounter Details Date Type Department Care Team Description 05/05/2022 Infusion Hematology Oncology at [facility] (chronic kidney disease) [facility] stage 4, GFR 15-29 ml/min [address] [place] [phone] Social History Tobacco Use Types [...] and BSA by ROD QUINN, SHEILA and [facility]. REACTIONS (DESCRIPTION, TIME, INTERVENTION AND EFFECTIVENESS) none ASSESSMENT Reuben was awake, alert and tolerated treatment well. Aranesp given in [place]. PLAN Return to clinic in 2 weeks. documented in this encounter Plan of Treatment Upcoming Encounters Date Type Specialty Care Team Description 06/16/2022 Infusion Hematology and Oncology 06/21/2022 Office Visit Neurology Tyler Rojas MD [facility] Neurology [place], [place] [phone] (Wo rk) 06/29/2022 Appointment Cardiology Violetta Sanford M D [address] [place] [address] (Wo rk) 06/30/2022 Infusion Hematology and Oncology 07/14/2022 Infusion Hematology and Oncology 07/28/2022 Infusion Hematology and Oncology 08/11/2022 Infusion Hematology and Oncology 08/16/2022 Office Visit Audiology Mindy Moody AUD [facility] AUDIOLOGY DEPT [place], [place] 0[address] (Wo rk) 11/04/2022 Office Visit Rheumatology Dante Freedman PA [facility] RHEUMATOLOGY [place], [place] [address] (Oscar escobedo) documented as of [...] (CKD) documented in this encounter Care Teams Family And Divorce Legal Assistant Relationship Specialty Start Date End Date Violetta Sanford MD PCP - General 04/02/14 [address] [place] [address] documented as of this encounter
--- OUTSIDE RECORDS SUMMARY | 2022-06-16 12:20 | XMS_ITS | Encounter Summary ---
:1955 Author Organization [facility] [place] [address] Care Team Providers Name Role Phone Violetta Sanford MD Primary Care Provider Encounter Details Date Type Department Care Team Description 06/10/2022 Telephone Solid Organ Transpla nt at [facility] Shayy Interiano, [place] [address] Social History Tobacco Use Types Packs/Day Years Used Date Smoking Tobacco: Former Cigarettes 2 20 Quit : 01/19/1993 Smokeless Tobacco: Never Alcohol Use Standard Drinks/Week Comments Yes 0 (1 standard drink = 0.6 oz pure alcoho l) 1 beer monthly Sex Assigned at Date Recorded Not on file documented as of this encounter Miscellaneous Notes Telephone Encounter - Shayy Interiano, RN - 06/10/2022 12:36 PM EST Called and spoke w/ pt. Explained that he has spike proteins after his COVID vaccination and has received 5 vaccinations, he does not need Evushield. Pt verbalized understanding. documented in this encounter Plan of Treatment Upcoming Encounters Date Type Specialty Care Team Description 06/16/2022 Infusion Hematology and Oncology 06/21/2022 Office Visit Neurology Tyler Rojas MD [facility] Neurology [place], [place] [phone] (Wo rk) 06/29/2022 Appointment Cardiology Violetta Sanford M D [address] [place], [place] [address] (Wo rk) 06/30/2022 Infusion Hematology and Oncology 07/14/2022 Infusion Hematology and Oncology 07/28/2022 Infusion Hematology and Oncology 08/11/2022 Infusion Hematology and Oncology 08/16/2022 Office Visit Audiology Mindy Moody AUD [facility] AUDIOLOGY [place], [place] [address] (Wo rk) 11/04/2022 Office Visit Rheumatology Dante Freedman PA [facility] RHEUMATOLOGY [place], [place] [address] (Wo rk) documented as of this encounter Visit Diagnoses Not on filedocumented in this encounter Care Teams Low Heel Builder Relationship Specialty Start Date End Date Violetta Sanford MD PCP - General 04/02/14 [address] [place] [address] documented as of this encounter
--- OUTSIDE RECORDS SUMMARY | 2022-06-16 12:20 | XMS_ITS | Encounter Summary ---
:1955 Author Organization [place] [address] Care Team Providers Name Role Phone Violetta Sanford MD Primary Care Provider Encounter Details Date Type Department Care Team Description 06/09/2022 Telephone Solid Organ Transpla nt at [facility] Sahyy Interiano, [place] [address] Social History Tobacco Use Types Packs/Day Years Used Date Smoking Tobacco: Former Cigarettes 2 20 Quit : 01/19/1993 Smokeless Tobacco: Never Alcohol Use Standard Drinks/Week Comments Yes 0 (1 standard drink = 0.6 oz pure alcoho l) 1 beer monthly Sex Assigned at Date Recorded Not on file documented as of this encounter Miscellaneous Notes Telephone Encounter - Shayy Interiano RN - 06/09/2022 10:39 AM EST Returned Reuben's call. Phone line is busy. Unable to leave message. Will try patient back again later today. documented in this encounter Plan of Treatment Upcoming Encounters Date Type Specialty Care Team Description 06/16/2022 Infusion Hematology and Oncology 06/21/2022 Office Visit Neurology Tyler Rojas MD [facility] Dr [address] [place], [place] [phone] (Wo rk) 06/29/2022 Appointment Cardiology Violetta Sanford M D [address] [place], [place] [address] (Wo rk) 06/30/2022 Infusion Hematology and Oncology 07/14/2022 Infusion Hematology and Oncology 07/28/2022 Infusion Hematology and Oncology 08/11/2022 Infusion Hematology and Oncology 08/16/2022 Office Visit Audiology Mindy Moody, [facility] AUDIOLOGY [place], [place] [address] (Wo rk) 11/04/2022 Office Visit Rheumatology Dante Freedman, PA [facility] RHEUMATOLOGY [place], [place] [address] (Wo rk) documented as of this encounter Visit Diagnoses Not on filedocumented in this encounter Care Teams Metal Loader Relationship Specialty Start Date End Date Violetta Sanford MD PCP - General 04/02/14 [address] [place] [address] documented as of this encounter
--- OUTSIDE RECORDS SUMMARY | 2022-06-16 12:20 | XMS_ITS | Encounter Summary ---
:1955 Author Organization [facility] [place] [address] Care Team Providers Name Role Phone Violetta Sanford MD Primary Care Provider Encounter Details Date Type Department Care Team Description 05/06/2022 Telephone Gastroenterology at [facility] Kimo Singh MD [facility] [place] [address] GASTROENTEROLOGY [phone] [place], [place] [address] (Wo rk) Social History Tobacco [...] Tyler Rojas MD [facility] Neurology [place], [place] [phone] (Wo rk) 06/29/2022 Appointment Cardiology Violetta Sanford M D [address] [place], [place] [address] (Wo rk) 06/30/2022 Infusion Hematology and Oncology 07/14/2022 Infusion Hematology and Oncology 07/28/2022 Infusion Hematology and Oncology 08/11/2022 Infusion Hematology and Oncology 08/16/2022 Office Visit Audiology Mindy Moody AUD [facility] AUDIOLOGY [place], [place] 0[address] (Wo rk) 11/04/2022 Office Visit Rheumatology Dante Freedman PA [facility] RHEUMATOLOGY [place], [place] [address] (Wo rk) documented as of this encounter Visit Diagnoses Diagnosis Monika esophagitis - Primary Candidiasis of the esophagus documented in this encounter Care Teams Film Splicer Relationship Specialty Start Date End Date Violetta Sanford MD PCP - General 04/02/14 [address] [place], [place] [address] documented as of this encounter
--- OUTSIDE RECORDS SUMMARY | 2022-06-16 12:20 | XMS_ITS | Encounter Summary ---
:1955 Author Organization [facility] [place] [address] Care Team Providers Name Role Phone Violetta Sanford MD Primary Care Provider Encounter Details Date Type Department Care Team Description 05/04/2022 Telephone Gastroenterology at [facility] Kimo Singh MD [facility] [place] [address] GASTROENTEROLOGY [phone] [place], [place] [address] (Wo rk) Social History Tobacco [...] Tyler Rojas MD [facility] Neurology [place], [place] [phone] (Wo rk) 06/29/2022 Appointment Cardiology Violetta Sanford M D [address] [place], [place] [address] (Wo rk) 06/30/2022 Infusion Hematology and Oncology 07/14/2022 Infusion Hematology and Oncology 07/28/2022 Infusion Hematology and Oncology 08/11/2022 Infusion Hematology and Oncology 08/16/2022 Office Visit Audiology Mindy Moody AUD [facility] AUDIOLOGY DEPT [place], [place] [address] (Wo rk) 11/04/2022 Office Visit Rheumatology Dante Freedman PA [facility] RHEUMATOLOGY [place], [place] [address] (Wo rk) documented as of this encounter Visit Diagnoses Not on filedocumented in this encounter Care Teams Upsetter Relationship Specialty Start Date End Date Violetta Sanford MD PCP - General 04/02/14 [address] [place], [place] [address] documented as of this encounter
--- OUTSIDE RECORDS SUMMARY | 2022-06-16 12:20 | XMS_ITS | Encounter Summary ---
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 with [place] [address] [place] [address] [place] [address] Social History Tobacco Use Types Packs/Day Years [...] - Inhaled Oxygen Concentration - - Weight 130.6 kg (288 lb) 05/26/2022 11:22 AM EDT Height 194.3 cm (6' 4.5) 05/26/2022 11:22 AM EDT Body Mass Index 34.6 05/26/2022 11:22 AM EDT documented in this encounter Progress Notes Ricardo Panda PA - 05/26/2022 11:20 AM EDT [facility] Otolaryngology - Head and Neck Surgery Iraj Scott MD 05/26/22 11:54 AM [place], [place] [address] Office Patient Name: Leroy Torres Date of : 1955 PCP: Violetta Sanford MD Chief Complaint: hearing loss Interval History: 05/26/22: Has felt like Left ear has been plugged for weeks. Started shortly after last appointment with Dr. Scott. Muffled hearing. Some pain. No drainage, or vertigo. 04/28/2022: F/u left ear. Patient presents today [...] right ear. Bone-conduction thresholds essentially symmetric. Speech reception clerk thresholds at 30 dB for the right [...] of Present Illness: Leroy Torres is a 67 y.o. year old male who was seen [...] the left. Bone-conduction thresholds essentially symmetric. Speech reception clerk thresholds at 20 dB for the right [...] COPD (chronic obstructive pulmonary disease) J44.9 ??? group home current use of immunosuppressive drug Z79.899 [...] to Visit Medication Sig Dispense Refill ??? fluconazole (Diflucan) 100 mg Tablet Take 4 tablets tomorrow (05/07/22), then 1 tablet daily until complete. 17 tablet 0 ??? primidone (Mysoline) 50 mg Tablet Take 1 tablet by mouth 4 times daily. (Patient taking differently: Take 50 mg by mouth 4 times daily. Managed by PCP) 120 tablet 3 ??? CellCept 250 mg Capsule Take 2 [...] Take 10 mg by mouth daily. ??? FreeStyle Gilberto 2 Sensor Kit 1 each by [facility].(Non-Drug; Combo Route) route every 14 days. Use to continuously monitor blood glucose. Scan at least 4 times per day. 6 kit 3 ??? FreeStyle Gilberto 2 [place] [facility] Use to continuously [...] Day Sensor Kit 1 each by [facility].(Non-Drug; Combo Route) route [...] Sensor (Dexcom G6 Sensor) Device by [facility].(Non-Drug; Combo Route) route. Sensor, pmo business analyst andtransmitter ??? metoprolol succinate XL (Toprol-XL) 50 mg Tablet Sustained Release 24 hr Take 1 tablet by mouth daily. 90 tablet 1 ??? amLODIPine (Norvasc) 10 mg Tablet Take 0.5 tablets by mouth daily. 90 tablet 3 ??? fluticasone propionate (FLONASE) 50 mcg/actuation Amanda, Suspension INSTILL 2 SPRAYS INTO EACH NOSTRIL [...] x 1/2 Needle 1 Device by [facility].(Non- Drug; Combo Route) [...] Reported on 08/06/2016 ??? Miscellaneous Medical Supply [facility] 4 Devices by [facility].(Non-Drug; Combo Route) route daily. Rubber sheath for leg prosthesis (2 pairs) 4 each PRN ??? BD INSULIN PEN NEEDLE UF ORIG 29 gauge x 1/2 Needle 0 ??? aspirin 81 mg EC tablet Take 81 mg by mouth daily. ??? albuterol (PROVENTIL) 2.5 mg /3 mL (0.083 %) Solution for Nebulization Take 3 mLs by nebulization every 4 hours as needed for Wheezing. (Patient not taking: No sig reported) 90 mL 3 No current facility-administered medications on file prior [...] Biopsy Bone Marrow 10/22/2021 Richar Lo MD [facility] RAD CT SCAN ??? PRO AMPUTATION LOW LEG THRU TIB/FIB 06/21/2011 ??AMPUTATION, BELOW-KNEE performed by HENNA GAMINO JR at [facility] OR ??? PRO CREATE EARDRUM OPENING, GEN ANESTH Left 02/09/2022 MYRINGOTOMY, INSERTION OF TUBE (WRVU 2.01) performed by Archie Avila MD at [facility] OR ??? PRO INCISION EARDRUM,ASPIR Left 12/29/2021 MYRINGOTOMY ASPIRATION OF MIDDLE EAR (WRVU 1.38) performed by Iraj Scott MD at [facility] OR ??? PRO LAP, APPENDECTOMY 06/16/2013 LAPAROSCOPIC APPENDECTOMY performed by Angel Mccann MD at [facility] OR ??? PRO MICROSURG TECHNIQUES, REQ OPER MICROSCOPE Left 12/29/2021 MICROSCOPE USE (WRVU 3.46) performed by Iraj Scott MD at [facility] OR ??? PRO MICROSURG TECHNIQUES, REQ OPER MICROSCOPE Left 02/09/2022 MICROSCOPE USE (WRVU 3.46) performed by Archie Avila MD at [facility] OR ??? PRO UPPER GI ENDOSCOPY, BIOPSY N/A 04/19/2022 EGD WITH BIOPSY (WRVU 2.49) performed by Kimo Singh MD at [facility] ENDOSCOPY ??? US RENAL TRANSPLANT LEFT Left 06/26/2019 US Renal Transplant Left 06/26/2019 [facility] RAD ULTRASOUND Family and Social History Family History: No family history on file. Social History: Lives [place] [place] [facility] [phone] Social History Socioeconomic History ??? Marital status: Spouse name: Not on file ??? Number of children: Not on file ??? Years of education: Not on file ??? Highest education level: Not on file Occupational History ??? Not on file Tobacco Use ??? Smoking status: Former Smoker Packs/day: 2.00 Years: 20.00 Pack years: 40.00 Types: Cigarettes Quit date: 01/19/1993 Years since quittin.3 ??? Smokeless tobacco: Never Used Vaping Use [...] and cleaned with aid of binocular microscopy. Left Ear: Auricle normal. External auditory canal clear. Anterior canal wall bulge with canal narrowing. EAC with extruded switch foreman on inferior canal wall. Removed with simple tools. TM intact with good movement on pneumatic otoscopy. ASSESSMENT & RECOMMENDATIONS Leroy Torres is a 67 y.o. male who presented with slowly progressive [...] of topical antibiotics and steroids withtragal pumping. Now with extruded PET. TM well healed without evidence of middle ear disease but has symptoms of pressure, fullness and decreased hearing. Discussed options include continued observation vs repeat myringotomy with PET. HE would like to proceed with myringotomy and PET. Will talk to Dr Scott further andif deemed appropriate will place surgical orders. If not, will determine more appropriate f/u. He was agreeable to this and all questions were answered. DA Choi Otolaryngology - Head & Neck Surgery 05/26/22 11:54 AM documented in this encounter Plan of Treatment Upcoming Encounters Date Type Specialty Care Team Description 06/16/2022 Infusion Hematology and Oncology 06/21/2022 Office Visit Neurology Tyler Rojas MD [facility] Neurology [place], [place] [phone] (Wo rk) 06/29/2022 Appointment Cardiology Violetta Sanford M D [address] [place], [place] [address] (Wo rk) 06/30/2022 Infusion Hematology and Oncology 07/14/2022 Infusion Hematology and Oncology 07/28/2022 Infusion Hematology and Oncology 08/11/2022 Infusion Hematology and Oncology 08/16/2022 Office Visit Audiology Mindy Moody AUD [facility] AUDIOLOGY DEPT [place], [place] [address] (Wo rk) 11/04/2022 Office Visit Rheumatology Dante Freedman PA 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
--- OUTSIDE RECORDS SUMMARY | 2022-06-16 12:20 | XMS_ITS | Encounter Summary ---
:1955 Author Organization [facility] [place] [address] Care Team Providers Name Role Phone Violetta Sanford MD Primary Care Provider Encounter Details Date Type Department Care Team Description 05/26/2022 Travel Social History Tobacco Use Types Packs/Day [...] Rojas MD [facility] Neurology [place], [place] [phone] (Oscar escobedo) 06/29/2022 Appointment Cardiology Violetta Sanford M D [address] [place] [address] (Wo rk) 06/30/2022 Infusion Hematology and Oncology 07/14/2022 Infusion Hematology and Oncology 07/28/2022 Infusion Hematology and Oncology 08/11/2022 Infusion Hematology and Oncology 08/16/2022 Office Visit Audiology Mindy Moody AUD [facility] AUDIOLOGY DEPT [place], [place] [address] (Oscar escobedo) 11/04/2022 Office Visit Rheumatology Dante Freedman PA [facility] MEDICAL [facility] [place] [address] (Wo rk) documented as of this encounter Visit Diagnoses Not on filedocumented in this encounter Care Teams Marble Polisher Relationship Specialty Start Date End Date Violetta Sanford MD PCP - General 04/02/14 [facility] [address] [facility] [place] [address] documented as of this encounter
--- OUTSIDE RECORDS SUMMARY | 2022-06-16 12:20 | XMS_ITS | Encounter Summary ---
:1955 Author Organization [facility] [place] [address] Care Team Providers Name Role Phone Violetta Sanford MD Primary Care Provider Reason for Visit Reason Comments Injections aranesp Treatment/Therapy Plan Authorization (Routine) - Authorized Specialty Diagnoses / Procedures Referred By Contact Refer red To Contact Hematology and Diagnoses CKD (chronic kidney disease) stage 4, GFR 15-29 ml/min Nicky Baez Elizabeth Oncology Procedures MD James NUR MD [address] HEMATOLOGY/ONCOLOGY [place], [place] DEPT. [id number] [place] [id number] Referral ID Status Reason Start Date Expiration Date Visits V isits Requested Authorized [id number] Authorized 10/08/2020 07/24/2023 99 99 Encounter Details Date Type Department Care Team Description 05/19/2022 Infusion Hematology Oncology at [facility] (chronic kidney disease) [facility] stage 4, GFR 15-29 ml/min [address] [place] [phone] Social History Tobacco Use Types [...] 200, ANC 3.45, Iron 37, TIBC 206, [id number] Pre administration: Medication orders independently verified for drug name, route, and dosage per patient's height, weight and BSA by Jumana Saab, SHEILA and [facility]. REACTIONS (DESCRIPTION, TIME, INTERVENTION AND EFFECTIVENESS) none ASSESSMENT Reuben was awake, alert and tolerated treatment well. Aranesp given in [place]. PLAN Return to clinic in 2 weeks. documented in this encounter Plan of Treatment Upcoming Encounters Date Type Specialty Care Team Description 06/16/2022 Infusion Hematology and Oncology 06/21/2022 Office Visit Neurology Tyler Rojas MD [facility] Neurology [place], [place] [phone] (Oscar escobedo) 06/29/2022 Appointment Cardiology Violetta Sanford M D [address] [address] (Oscar escobedo) 06/30/2022 Infusion Hematology and Oncology 07/14/2022 Infusion Hematology and Oncology 07/28/2022 Infusion Hematology and Oncology 08/11/2022 Infusion Hematology and Oncology 08/16/2022 Office Visit Audiology Mindy Moody AUD [facility] AUDIOLOGY DEPT [place], [place] [address] (Wo rk) 11/04/2022 Office Visit Rheumatology Dante Freedman PA [facility] RHEUMATOLOGY [place], [place] [address] (Wo rk) documented as of [...] (CKD) documented in this encounter Care Teams Psychiatric Clinician Relationship Specialty Start Date End Date Violetta Sanford MD PCP - General 04/02/14 [facility] [address] [place] [address] documented as of this encounter
--- OUTSIDE RECORDS SUMMARY | 2022-06-16 12:20 | XMS_ITS | Encounter Summary ---
:1955 Author Organization [facility] [place] [address] Care Team Providers Name Role Phone Violetta Sanford MD Primary Care Provider Reason for Visit Reason Onset Date Comments Labs Only 05/19/2022 Lab Tracking Encounter Details Date Type Department Care Team Description 05/19/2022 Telephone Hematology/Oncology at [facility], Labs Only (Lab Tracking) [facility] Angelica Gilbert RN [address] [place] [phone] Social History Tobacco Use Types Packs/Day Years Used Date Smoking Tobacco: Former Cigarettes 2 20 Quit : 01/19/1993 Smokeless Tobacco: Never Alcohol Use Standard Drinks/Week Comments Yes 0 (1 standard drink = 0.6 oz pure alcoho l) 1 beer monthly Sex Assigned at Date Recorded Not on file documented as of this encounter Miscellaneous Notes Telephone Encounter - Angelica Malhotra RN - 05/19/2022 1:30 PM EDT LAB TRACKING Leroy Torres [id number] 1955 ?? DIAGNOSIS: Anemia d/t CKD stage [...] weeks and see provider in 6 months. [facility] lab called creatinine level of 4.0 [...] MD [facility] Neurology [place], [place] [phone] (Oscar escobedo) 06/29/2022 Appointment Cardiology Violetta Sanford M D [address] [place] [address] (Oscar escobedo) 06/30/2022 Infusion Hematology and Oncology 07/14/2022 Infusion Hematology and Oncology 07/28/2022 Infusion Hematology and Oncology 08/11/2022 Infusion Hematology and Oncology 08/16/2022 Office Visit Audiology Mindy Moody AUD [facility] AUDIOLOGY DEPT [place], [place] [address] (Wo rk) 11/04/2022 Office Visit Rheumatology Dante Freedman PA [facility] ER RHEUMATOLOGY [place], [place] [address] (Wo rk) documented as of [...] on filedocumented in this encounter Care Teams Fbi Field Agent Relationship Specialty Start Date End Date Violetta Sanford MD PCP - General 04/02/14 [address] [place] [address] documented as of this encounter
--- OUTSIDE RECORDS SUMMARY | 2022-06-16 12:20 | XMS_ITS | Encounter Summary ---
:1955 Author Organization [facility] Address [address] [place] [address] Care Team Providers Name Role Phone Suhas Chowdhury MD Primary Care Provider Unavailable Unknown, Provider Primary Care Provider Encounter Details Date Type Department Care Team Description 06/03/2003 Results Only [facility] Perkins MD Maple conversion 90 [facility] [address] [id number] [phone] Social History Tobacco Use Types Packs/Day Years [...] encounter Results SURGICAL PATHOLOGY (06/03/2003 0:00 EST) Component Value Ref Test Analysis Performed At [facility] Method Time [facility] Pathology SURGICAL PATHOLOGY REPORT KETTY CLEMENS Report: Reports generated via electronic interface contain origina l data; CLEMENT BORREGO however they are lacking the format of the original report. Caution should be taken when reading/interpreting unformatte d reports. Name: ? BRETT DAILEY ? Accession #: ? [id number] ? : ? 1955 (Age: 48) ??M ? Collect Date: ? 06/03/2003 ? Location: ? [facility] ? Receive Date: ? 06/03/2003 ? Provider: GONZALEZ PERKINS MD Copy to: SUHAS CHOWDHURY MD ? Final Pathologic Diagnosis: ? Colon, descending, 50.0 cm, polyp, polypectomy: - Tubular adenoma. Document reviewed and electronically signed by: SHARMIN YOUSSEF MD Report ??Date: 06/05/2003 14:39 By the signature above, the attending physician certifies th at he/she has personally conducted a gross and/or microscopic examin ation of the described specimens and rendered or confirmed the above diagnosis. Specimen(s) Received: ? Descending colon bx 50.0 cm Clinical History: ? Screening Gross Description: ? Received in Hollande' s fixative labelled Burnett and descending colon 50.0 cm bx are two aiken soft tissue biopsies, 0.2 x 0.2 x 0.1 cm and 0.3 x 0.2 x 0.1 cm. ??The specimen is en tirely submitted in one cassette. ??(Suki Randle)/[facility] End of Report Specimen (Source) Anatomical Collection Method Collection Time Re ceived Time Location / / Volume Laterality 06/03/2003 06/03/2003 15:1 8 EST Gonzalez Perkins MD PATHOLOGY ORDERABLES Performing Organization Address City/State/ZIP Code Phon e Number [facility] [address] [place] [address] [facility] [address] [place] [address] documented in this encounter Visit Diagnoses Not on filedocumented in this encounter Care Teams Archeologist Relationship Specialty Start Date End Date Suhas Chowdhury MD PCP - General 10/09/09 04/05/16 Unknown, MD Javon PCP - General 09/30/09 10/08/09 documented as of this encounter
--- OUTSIDE RECORDS SUMMARY | 2022-06-16 12:20 | XMS_ITS | Encounter Summary ---
:1955 Author Organization [facility] [address] Care Team Providers Name Role Phone Violetta [...] Rojas MD [facility] Neurology [place], [place] [phone] (Oscar escobedo) 06/29/2022 Appointment Cardiology Violetta Sanford M D [address] [place] [address] (Wo rk) 06/30/2022 Infusion Hematology and Oncology 07/14/2022 Infusion Hematology and Oncology 07/28/2022 Infusion Hematology and Oncology 08/11/2022 Infusion Hematology and Oncology 08/16/2022 Office Visit Audiology Mindy Moody AUD [facility] AUDIOLOGY DEPT [place], [place] [address] (Oscar escobedo) 11/04/2022 Office Visit Rheumatology Dante Freedman PA [facility] [place] [address] (Wo rk) documented as of this encounter Visit Diagnoses Not on filedocumented in this encounter Care Teams Pv Design Engineer Relationship Specialty Start Date End Date Violetta Sanford MD PCP - General 04/02/14 [facility] ALONDRA DAVID [facility] [address] [place] [address] documented as of this encounter
--- OUTSIDE RECORDS SUMMARY | 2022-06-16 12:20 | XMS_ITS | Encounter Summary ---
:1955 Author Organization [facility] Address [address] [place] [address] Care Team Providers Name Role Phone Suhas Chowdhury MD Primary Care Provider Unavailable Encounter Details Date Type Department Care Team Description 10/22/2009 Hospital Encounter [facility] Chowdhury, Medical Office [facility] dayne HAWK [phone] Social History Tobacco Use Types Packs/Day Years Used Date Smoking Tobacco: Never Assessed Sex Assigned at Date Recorded Not on file documented as of this encounter Discharge Disposition Disposition Code Departure Means Destination Home or Self Senior Care documented in this encounter Plan of Treatment Not on filedocumented as of this encounter Visit Diagnoses Not on filedocumented in this encounter Care Teams Flour Mixer Relationship Specialty Start Date End Date Suhas Chowdhury MD PCP - General 10/09/09 04/05/16 documented as of this encounter
--- OUTSIDE RECORDS SUMMARY | 2022-06-16 12:20 | XMS_ITS | Encounter Summary ---
:1955 Author Organization [facility] [place] [address] Care Team Providers Name Role Phone Violetta Sanford MD Primary Care Provider Encounter Details Date Type Department Care Team Description 06/02/2022 Travel Social History Tobacco Use Types Packs/Day [...] Rojas MD [facility] Neurology [place], [place] [phone] (Oscar escobedo) 06/29/2022 Appointment Cardiology Violetta Sanford M D [address] [place] [address] (Wo rk) 06/30/2022 Infusion Hematology and Oncology 07/14/2022 Infusion Hematology and Oncology 07/28/2022 Infusion Hematology and Oncology 08/11/2022 Infusion Hematology and Oncology 08/16/2022 Office Visit Audiology Mindy Moody AUD [facility] AUDIOLOGY DEPT [place], [place] [address] (Oscar escobedo) 11/04/2022 Office Visit Rheumatology Dante Freedman PA [facility] [place] [address] (Wo rk) documented as of this encounter Visit Diagnoses Not on filedocumented in this encounter Care Teams Printed Circuit Board Drafter Relationship Specialty Start Date End Date Violetta Sanford MD PCP - General 04/02/14 [facility] ALONDRA DAVID [facility] 1 [place] [address] documented as of this encounter
--- OUTSIDE RECORDS SUMMARY | 2022-06-16 12:20 | XMS_ITS | Encounter Summary ---
:1955 Author Organization [facility] [place] [address] Care Team Providers Name Role Phone Violetta Sanford MD Primary Care Provider Reason for Visit Reason Comments Injections Aranesp Treatment/Therapy Plan Authorization (Routine) - Authorized Specialty Diagnoses / Procedures Referred By Contact Refer red To Contact Hematology and Diagnoses CKD (chronic kidney disease) stage 4, GFR 15-29 ml/min Nicky Baez Elizabeth Oncology Procedures MD James NUR MD [address] HEMATOLOGY/ONCOLOGY [place], [place]PT. [address] [place] [address] Referral ID Status Reason Start Date Expiration Date Visits V isits Requested Authorized [id number] Authorized 10/08/2020 07/24/2023 99 99 Encounter Details Date Type Department Care Team Description 04/21/2022 Infusion Hematology Oncology at [facility] (chronic kidney disease) [facility] stage 4, GFR 15-29 ml/min [address] [place] [phone] Social History Tobacco Use Types [...] and BSA by Lindsay Lerma, SHEILA and formerly [facility]. REACTIONS (DESCRIPTION, TIME, INTERVENTION AND EFFECTIVENESS) none ASSESSMENT Reuben was awake, alert and tolerated treatment well. Aranesp given in [place]. PLAN Return to clinic in 2 weeks. documented in this encounter Plan of Treatment Upcoming Encounters Date Type Specialty Care Team Description 06/16/2022 Infusion Hematology and Oncology 06/21/2022 Office Visit Neurology Tyler Rojas MD [facility] Neurology [place], [place] [phone] (Wo rk) 06/29/2022 Appointment Cardiology Violetta Sanford M D [address] [place] [address] (Wo rk) 06/30/2022 Infusion Hematology and Oncology 07/14/2022 Infusion Hematology and Oncology 07/28/2022 Infusion Hematology and Oncology 08/11/2022 Infusion Hematology and Oncology 08/16/2022 Office Visit Audiology Mindy Moody AUD [facility] AUDIOLOGY DEPT [place], [place] [address] (Oscar escobedo) 11/04/2022 Office Visit Rheumatology Dante Freedman PA [facility] RHEUMATOLOGY [place], [place] [address] (Oscar escobedo) documented as of [...] (CKD) documented in this encounter Care Teams Storyboard Artist Relationship Specialty Start Date End Date Violetta Sanford MD PCP - General 04/02/14 [address] [place] [address] documented as of this encounter
--- OUTSIDE RECORDS SUMMARY | 2022-06-16 12:21 | XMS_ITS | Encounter Summary ---
:1955 Author Organization [facility] [address] Care Team Providers Name Role Phone Violetta Sanford MD Primary Care Provider Reason for Visit Reason Onset Date Comments Labs Only 03/24/2022 Lab Tracking Encounter Details Date Type Department Care Team Description 03/24/2022 Telephone Hematology/Oncology at [facility], Labs Only (Lab Tracking) [facility] Angelica Gilbert RN [address] [place] [phone] Social History Tobacco Use Types Packs/Day Years Used Date Smoking Tobacco: Former Cigarettes 2 20 Quit : 01/19/1993 Smokeless Tobacco: Never Alcohol Use Standard Drinks/Week Comments Yes 0 (1 standard drink = 0.6 oz pure alcoho l) Once a year Sex Assigned at Date Recorded Not on file documented as of this encounter Miscellaneous Notes Telephone Encounter - Angelica Malhotra RN - 03/24/2022 12:00 PM EDT LAB TRACKING Leroy Torres [id number] 1955 ?? DIAGNOSIS: Anemia d/t CKD stage [...] Rojas MD [facility] Neurology [place], [place] [phone] (Wo rk) 06/29/2022 Appointment Cardiology Violetta Sanford M D [address] [place], [place] [address] (Wo rk) 06/30/2022 Infusion Hematology and Oncology 07/14/2022 Infusion Hematology and Oncology 07/28/2022 Infusion Hematology and Oncology 08/11/2022 Infusion Hematology and Oncology 08/16/2022 Office Visit Audiology Mindy Moody AUD [facility] AUDIOLOGY [place], [place] [address] (Wo rk) 11/04/2022 Office Visit Rheumatology Dante Freedman PA [facility] RHEUMATOLOGY [place], [place] [address] (Wo rk) documented as of this encounter Visit Diagnoses Not on filedocumented in this encounter Care Teams Therapeutic Radiologist Relationship Specialty Start Date End Date Violetta Sanford MD PCP - General 04/02/14 [address] [place] [address] documented as of this encounter
--- OUTSIDE RECORDS SUMMARY | 2022-06-16 12:21 | XMS_ITS | Encounter Summary ---
:1955 Author Organization [facility] Address [address] [place] [address] Care Team Providers Name Role Phone Violetta Sanford MD Primary Care Provider Encounter Details Date Type Department Care Team Description 03/17/2022 Office Visit Solid Organ Alejo Garnett CKD (sliver handler ivon kidney disease) stage 4, GFR 15-29 ml/min; Transplant at [facility] MD Thang Anemia of chronic renal failure, stage 4 (severe); [facility] Moustapha al osteodystrophy; Drive Afterjd following organ transplant; [place], [place] TRANSPLANT SURGE RY Prophylactic immunotherapy; [id number] [place] [address] Other complication of kidney transplant [phone] Social History Tobacco Use Types Packs/Day Years [...] Leroy Torres Transplant Date: 02/29/2008 Organ(s) Kidney [place] organ diagnosis: Diabetes Mellitus - Type II [...] on occasion. ?? He was admitted to [facility] in October 2018??for fluid overload and??A fib.Reuben [...] COPD (chronic obstructive pulmonary disease) 04/03/2014 ??? senior living current use of immunosuppressive drug 07/23/2016 ??? [...] Biopsy Bone Marrow 10/22/2021 Richar Lo MD [facility] RAD CT SCAN ??? PRO AMPUTATION LOW LEG THRU TIB/FIB 06/21/2011 ??AMPUTATION, BELOW-KNEE performed by HENNA GAMINO JR at [facility] MAIN OR ??? PRO CREATE EARDRUM OPENING, GEN ANESTH Left 02/09/2022 MYRINGOTOMY, INSERTION OF TUBE (WRVU 2.01) performed by Archie Avila MD at [facility] MAIN OR ??? PRO INCISION EARDRUM,ASPIR Left 12/29/2021 MYRINGOTOMY ASPIRATION OF MIDDLE EAR (WRVU 1.38) performed by Iraj Scott MD at [facility] MAIN OR ??? PRO LAP, APPENDECTOMY 06/16/2013 LAPAROSCOPIC APPENDECTOMY performed by Angel Mccann MD at [facility] MAIN OR ??? PRO MICROSURG TECHNIQUES, REQ OPER MICROSCOPE Left 12/29/2021 MICROSCOPE USE (WRVU 3.46) performed by Iraj Scott MD at [facility] MAIN OR ??? PRO MICROSURG TECHNIQUES, REQ OPER MICROSCOPE Left 02/09/2022 MICROSCOPE USE (WRVU 3.46) performed by Archie Avila MD at [facility] MAIN OR ??? US RENAL TRANSPLANT LEFT Left 06/26/2019 US Renal Transplant Left 06/26/2019 [facility] RAD ULTRASOUND Healthcare maintenance for a transplant [...] age 48 - Normal in 2017 in [facility] Monthly self skin exam, daily [...] done 03/21/2015 which was normal. Due again!! [place] kidney ultrasound looking for renal cell CA, [...] Gilberto 2 Sensor Kit, [address] [facility].(Non-Drug; Combo Route) route every 14 days. Use tocontinuously monitor blood glucose. Scan at least 4 times per day., Disp: 6 kit, Rfl: 3 ??? FreeStyle Gilberto [address] [facility], Use to continuously monitor blood glucose. Scan [...] 14 Day Sensor Kit, [address] [facility].(Non-Drug; Combo Route) route every 14 days. Use [...] Blood-Glucose Sensor (Dexcom G6 Sensor) Device, by [facility].(Non-Drug; Combo Route) route. Sensor, investment banking manager andtransmitter, Disp: , Rfl: ??? metoprolol succinate XL (Toprol-XL) 50 mg Tablet Sustained Release 24 hr, Take 1 tablet by mouthdaily., Disp: 90 tablet, Rfl: 1 ??? amLODIPine (Norvasc) 10 mg Tablet, Take 0.5 tablets by mouth daily., Disp: 90 tablet, Rfl: 3 ??? fluticasone propionate (FLONASE) 50 mcg/actuation [place], Suspension, INSTILL 2 SPRAYS INTO EACH NOSTRIL [...] gauge x 1/2 Needle, [address] [facility].(Non- Drug; Combo Route) route 3 times daily., [...] Miscellaneous Medical Supply Mis, [address] [facility].(Non-Drug; Combo Route) route daily. Rubbersheath for leg [...] from 03/17/2022 in Solid Organ Transplant at [facility] Weight 130.4 kg (287 lb 6.4 oz) [...] 30 min in direct face to face equal opportunity counselor. documented in this encounter Plan of Treatment Upcoming Encounters Date Type Specialty Care Team Description 06/16/2022 Infusion Hematology and Oncology 06/21/2022 Office Visit Neurology Tyler Rojas MD [facility] Neurology [place], [place] [phone] (Wo rk) 06/29/2022 Appointment Cardiology Violetta Sanford M D [address] [place], [place] [id number] (Wo rk) 06/30/2022 Infusion Hematology and Oncology 07/14/2022 Infusion Hematology and Oncology 07/28/2022 Infusion Hematology and Oncology 08/11/2022 Infusion Hematology and Oncology 08/16/2022 Office Visit Audiology Mindy Moody AUD [facility] AUDIOLOGY DEPT [place], [place] [address] (Wo rk) 11/04/2022 Office Visit Rheumatology Dante Freedman PA [facility] RHEUMATOLOGY [place], [place] [address] (Wo rk) documented as of this encounter Visit Diagnoses Diagnosis CKD (chronic kidney disease) stage 4, GF R 15-29 ml/min Chronic kidney disease, Stage IV (severe ) Anemia of chronic renal failure, stage 4 (severe) Renal osteodystrophy Aftercare following organ transplant Prophylactic immunotherapy Need for prophylactic immunotherapy Other complication of kidney transplant documented in this encounter Care Teams Ferry Captain Relationship Specialty Start Date End Date Violetta Sanford MD PCP - General 04/02/14 [address] [place] [address] documented as of this encounter
--- OUTSIDE RECORDS SUMMARY | 2022-06-16 12:21 | XMS_ITS | Encounter Summary ---
:1955 Author Organization [place] [address] Care Team Providers Name Role Phone Violetta Sanford MD Primary Care Provider Encounter Details Date Type Department Care Team Description 02/09/2022 Anesthesia Event Main Operating Room Malissa Huber MD [facility] [place] [address] [facility] Kareem Bowden MD [facility] [place] [address] [place] [address] Anesthesia Record Procedure Summary Procedure Name Responsible Anesthesia Start Anesthesia Stop Time Anesthesiologist Time MYRINGOTOMY, Malissa Che MD 02/09/22 0814 02/09/22 0932 INSERTION OF TUBE (WRVU 2.01) (Left: Ear) Events Date Time Event Comment 02/09/2022 [...] metacarpal vein (top of Philibert, Loretta H, Laci trang, Monico A, hand), right; 20 gauge; RN [...] Procedure Summary Date: 02/09/22 Room / Location: [facility] OR [address] [place] [address] MAIN OR Anesthesia Start: 813 Anesthesia Stop: [...] All Anesthesia Providers: Anesthesiologist: Malissa Che MD Builder'S Labourer: Kareem Bowden MD Vitals Value Taken Time BP 141/70 02/09/22 0930 Temp 36.5 ??C (97.7 ??F) 02/09/22 0916 Pulse 60 02/09/22 0932 Resp 15 02/09/22 0932 SpO2 96 % 02/09/22 0932 Pain Level Vitals shown include unvalidated device data. Patient Location: PACU/[facility] Level of Consciousness: Conscious but Sleepy Pain [...] immunotherapy 03/21/2019 ??? Persistent proteinuria 03/08/2017 ??? assisted current use of immunosuppressive drug 07/23/2016 ??? [...] Biopsy Bone Marrow 10/22/2021 Richar Lo MD [facility] RAD CT SCAN ??? PRO AMPUTATION LOW LEG THRU TIB/FIB 06/21/2011 ??AMPUTATION, BELOW-KNEE performed by HENNA GAMINO JR at [facility] OR ??? PRO INCISION EARDRUM,ASPIR Left 12/29/2021 MYRINGOTOMY ASPIRATION OF MIDDLE EAR (WRVU 1.38) performed by Iraj Scott MD at [facility] MAIN OR ??? PRO LAP, APPENDECTOMY 06/16/2013 LAPAROSCOPIC APPENDECTOMY performed by Angel Mccann MD at [facility] OR ??? PRO MICROSURG TECHNIQUES, REQ OPER MICROSCOPE Left 12/29/2021 MICROSCOPE USE (WRVU 3.46) performed by Iraj Scott MD at [facility] OR ??? US RENAL TRANSPLANT LEFT Left 06/26/2019 US Renal Transplant Left 06/26/2019 [facility] RAD ULTRASOUND Social History Tobacco Use [...] 7.5 ETT in 2012 and LMA5 in 2018. ziopatch data from 2020: no afib. Predominate [...] NPO Status: Appropriate Anesthetic Plan: GA with deering airway/LMA Standard ASA monitoring Adequate IV access, [...] MD [facility] Neurology [place], [place] [phone] (Wo rk) 06/29/2022 Appointment Cardiology Violetta Sanford M D [facility] ALONDRA Miller [address] [address] (Wo rk) 06/30/2022 Infusion Hematology and Oncology 07/14/2022 Infusion Hematology and Oncology 07/28/2022 Infusion Hematology and Oncology 08/11/2022 Infusion Hematology and Oncology 08/16/2022 Office Visit Audiology Mindy Moody AUD [facility] AUDIOLOGY [place], [place] [address] (Wo gregg) 11/04/2022 Office Visit Rheumatology Dante Freedman PA [facility] RHEUMATOLOGY [place], [place] [address] (Oscar escobedo) documented as of [...] propofoL (Diprivan) 10 mg/mL bolus injection Given 9:01 AM EDT 20 mg (Anesthesia) Intravenous, PRN, Starting on Tue02/09/22 at 0825, Until Tue02/09/22 at 0932, Anesthesia Intra-op Given 02/09/2022 8:25 AM EDT 200 mg documented in this encounter Care Teams Hinging Machine Operator Relationship Specialty Start Date End Date Violetta Sanford MD PCP - General 04/02/14 [address] [place] [address] documented as of this encounter
--- OUTSIDE RECORDS SUMMARY | 2022-06-16 12:21 | XMS_ITS | Encounter Summary ---
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 Bone-conduction thresholds essentially symmetric. Speech tapper shank thresholds at 30 dB for the right [...] the left. Bone-conduction thresholds essentially symmetric. Speech tapper shank thresholds at 20 dB for the right [...] COPD (chronic obstructive pulmonary disease) J44.9 ??? 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 [...] Gilberto 2 Sensor Kit 1 each by [facility].(Non-Drug; Combo Route) route every 14 days. Use to continuously monitor blood glucose. Scan at least 4 times per day. 6 kit 3 ??? FreeStyle Gilberto 2 [place] [facility] Use to continuously [...] 14 Day Sensor Kit 1 each by [facility].(Non-Drug; Combo Route) route every 14 days. Use to continuously monitor blood glucose. Scan at least 5 times per day. DX: E11.65 6 kit 3 ??? cyanocobalamin, Vitamin B-12, (Vitamin B-12) 100 mcg Tablet Take 100 mcg by mouth daily. ??? Blood-Glucose Sensor (Dexcom G6 Sensor) Device by [facility].(Non-Drug; Combo Route) route. Sensor, director of medical services andtransmitter ??? metoprolol succinate XL (Toprol-XL) 50 mg Tablet Sustained Release 24 hr Take 1 tablet by mouth daily. 90 tablet 1 ??? amLODIPine (Norvasc) 10 mg Tablet Take 0.5 tablets by mouth daily. 90 tablet 3 ??? fluticasone propionate (FLONASE) 50 mcg/actuation [place], Suspension INSTILL 2 SPRAYS INTO EACH NOSTRIL [...] gauge x 1/2 Needle 1 Device by [facility].(Non- Drug; Combo Route) [...] Reported on 08/06/2016 ??? Miscellaneous Medical Supply [facility] 4 Devices by [facility].(Non-Drug; [...] Biopsy Bone Marrow 10/22/[address] [facility] RAD CT SCAN ??? PRO AMPUTATION LOW LEG THRU TIB/FIB 06/21/2011 ??AMPUTATION, BELOW-KNEE performed by HENNA GAMINO JR at [facility] MAIN OR ??? PRO CREATE EARDRUM OPENING, GEN ANESTH Left 02/09/2022 MYRINGOTOMY, INSERTION OF TUBE (WRVU 2.01) performed by Archie Avila MD at [facility] MAIN OR ??? PRO INCISION EARDRUM,ASPIR Left 12/29/2021 MYRINGOTOMY ASPIRATION OF MIDDLE EAR (WRVU 1.38) performed by Iraj Scott MD at [facility] MAIN OR ??? PRO LAP, APPENDECTOMY 06/16/2013 LAPAROSCOPIC APPENDECTOMY performed by Angel Mccann MD at [facility] OR ??? PRO MICROSURG TECHNIQUES, REQ OPER MICROSCOPE Left 12/29/2021 MICROSCOPE USE (WRVU 3.46) performed by Iraj Scott MD at [facility] MAIN OR ??? PRO MICROSURG TECHNIQUES, REQ OPER MICROSCOPE Left 02/09/2022 MICROSCOPE USE (WRVU 3.46) performed by Archie Avila MD at [facility] MAIN OR ??? US RENAL TRANSPLANT LEFT Left 06/26/2019 US Renal Transplant Left 06/26/2019 [facility] RAD ULTRASOUND Family and Social History Family History: No family history on file. Social History: Lives in [place] [address] Social History Socioeconomic History ??? Marital status: [...] Rojas MD [facility] Neurology [place], [place] [phone] (Wo rk) 06/29/2022 Appointment Cardiology Violetta Sanford M D [facility] [address] [place] [id number] (Wo rk) 06/30/2022 Infusion Hematology and Oncology 07/14/2022 Infusion Hematology and Oncology 07/28/2022 Infusion Hematology and Oncology 08/11/2022 Infusion Hematology and Oncology 08/16/2022 Office Visit Audiology Mindy Moody AUD [facility] AUDIOLOGY DEPT [place], [place] [address] (Wo rk) 11/04/2022 Office Visit Rheumatology Dante Freedman PA [facility] ER RHEUMATOLOGY [place], [place] [address] (Wo rk) documented as of this encounter [...] UA 5 (H) 0 - 3 /HPF [facility] WBC UA 1 0 - 3 /HPF [facility] Squam Epith UA 1 <=4 /HPF [facility] Hyaline Cast 1 0 - 2 /LPF [facility] Specimen Anatomical Collection Method Collection Time Receive d Time (Source) Location / / Volume Laterality Clean Catch 03/17/2022 11:49 03/17/2022 Urine AM EDT 11:59 AM EDT Resulting Agency Comment Spec In Lab Alejo Garnett MD URINE ORDERABLES Performing Organization Address City/State/ZIP Code Phon e Number [place] [phone] (ABNORMAL) Urinalysis with reflex Culture (03/17/2022 11:49 AM EDT) Patholo gist Method Time Signature Glucose UA 100 (A) Negative [facility] mg/dL [facility] Protein UA >=300 (A) Negative [facility] mg/dL [facility] Bilirubin UA Negative Negative [facility] mg/dL [facility] Comment: Clinical correlation required for positi ve Urine Bilirubin results as false positive may occur with some drugs and d rug related products. If a false positive is suspected a serum total bili reyna should be considered if clinically indicated. Urobilinogen UA Normal Normal mg/dL [facility] pH UA 6.0 5.0 - 8.0 [facility] Blood UA Negative Negative mg/dL [facility] Ketones UA Negative Negative mg/dL [facility] Nitrite UA Negative Negative [facility] Leukocytes UA Negative Negative [facility] LABORATORY Appearance UA Clear Clear [facility] Spec [place] UA 1.016 1.005 - 1.030 [facility] Color UA Yellow Yellow [facility] Culture Reflexed No [facility] Specimen Anatomical Collection Method Collection Time Receive d Time (Source) Location / / Volume Laterality Clean Catch 03/17/2022 11:49 03/17/2022 Urine AM EDT 11:59 AM EDT Resulting Agency Comment Spec In Lab Alejo Garnett MD URINE ORDERABLES Performing Organization Address City/[facility]/ZIP Code Phon e Number [address] (ABNORMAL) Protein/Creatinine Ratio, urine (03/17/2022 11:49 AM EDT) Analysis Performed At Patho logist Time Signature U Creatinine 70 mg/dL [facility] U Protein Ran 333 (H) 0 - 12 [facility] mg/dL [facility] Prot/Cre Ratio 4.8 ratio [facility] Specimen Anatomical Collection Method Collection Time Receive d Time (Source) Location / / Volume Laterality Urine 03/17/2022 11:49 03/17/2022 AM EDT 12:01 PM EDT Resulting Agency Comment Spec In Lab Alejo Garnett MD URINE ORDERABLES Performing Organization Address City/[facility]/ZIP Code Phon e Number [address] Differential, Automated (03/17/2022 11:44 AM EDT) P athologist Signature Neutrophils % 57.0 % [facility] Neutr Abs (ANC) 3.90 1.70 - [facility] 6.10 [facility] x10(3)/[facility] LABORATORY Lymphocytes % 28.1 % [facility] Lymphocytes Abs 1.9 0.9 - 3.2 [facility] x10(3)/[facility] LABORATORY Monocytes % 10.1 % [facility] Monocyte Abs 0.7 0.3 - 0.9 [facility] x10(3)/[facility] LABORATORY Eosinophils % 4.4 % [facility] Eosinophils Abs 0.3 0.0 - 0.4 [facility] x10(3)/[facility] LABORATORY Basophils % 0.3 % [facility] Basophils Abs 0.0 0.0 - 0.1 [facility] x10(3)/[facility] LABORATORY Immature Gran % 0.10 % [facility] Comment: Immature granulocytes(IG's)percentage an d absolute count will include metamyelocytes, myelocytes, and promyelo cytes. Blood smears from CBCs yielding IG's will be scanned manually for concor dance. If this scan disagrees with the automated IG or if promyelocytes are not ed, a manual differential will be performed. Courtney Gran Abs 0.01 0.00 - 0.04 x10(3)/[facility] Specimen Anatomical Collection Method Collection Time Receive d Time (Source) Location / / Volume Laterality Blood 03/17/2022 11:44 03/17/2022 AM EDT 12:08 PM EDT Resulting Agency Comment Spec In Lab Alejo Garnett MD HEMATOLOGY ORDERABLES Performing Organization Address City/State/[place] [address] (ABNORMAL) Hemogram (03/17/2022 11:44 AM EDT) Analysis Performed At Patho logist Time Signature WBC 6.8 4.0 - 9.5 [facility] x10(3)/[facility] LABORATORY RBC 3.24 (L) 4.58 - [facility] 5.54 [facility] x10(6)/[facility] LABORATORY Hemoglobin 9.4 (L) 13.7 - [facility] 16.5 g/dL [facility] Hematocrit 30.7 (L) 40.5 - [facility] 48.5 % [facility] MCV 94.8 (H) 82.9 - [facility] 93.1 [facility] LABORATORY MCH 29.0 27.5 - [facility] 32.1 [facility] LABORATORY MCHC 30.6 (L) 32.0 - JERE CUEVASMELI 35.7 g/dL [facility] Platelets 180 145 - 357 [facility] x10(3)/[facility] LABORATORY RDWSD 49.7 (H) 36.0 - [facility] 45.0 [facility] LABORATORY RDWCV 14.5 (H) 11.4 - [facility] 13.8 % [facility] MPV 8.8 7.6 - 12.9 [facility] LABORATORY nRBC % Auto 0.0 % [facility] nRBC Abs Auto 0.000 0.000 - [facility] 0.000 [facility] x10(3)/[facility] LABORATORY Specimen Anatomical Collection Method Collection Time Receive d Time (Source) Location / / Volume Laterality Blood 03/17/2022 11:44 03/17/2022 AM EDT 12:08 PM EDT Resulting Agency Comment Spec In Lab Alejo Garnett MD HEMATOLOGY ORDERABLES Performing Organization Address City/State/ZIP Code Phon e Number [place] [phone] [address]OS[address] LAB[address]ORY Drive (ABNORMAL) Reticulocyte Count (03/17/2022 11:44 AM EDT) [facility] gist Method Time Signature Retic Ct % 2.1 0.7 - 2.6 JERE MAY % [facility] LABORATORY Retic Ct Abs 0.070 0.030 - [place] CUEVASMELI 0.120 [facility] x10(6)/[facility] LABORATORY Immature Retic% 22.5 (H) 0.0 - J[place] CUEVASMELI 15.6 % [facility] Reticulated Hgb 25.9 (L) 31.3 - [facility] 40.2 [facility] LABORATORY Specimen Anatomical Collection Method Collection Time Receive d Time (Source) Location / / Volume Laterality Blood 03/17/2022 11:44 03/17/2022 AM EDT 12:08 PM EDT Resulting Agency Comment Spec In Lab Alejo Garnett MD HEMATOLOGY ORDERABLES Performing Organization Address City/State/[place] [address] (ABNORMAL) Comprehensive metabolic panel (non-fasting) (03/17/2022 11:44 AM EDT) P athologist Signature Glucose Lvl 116 65 - 199 [facility] mg/dL [facility] Comment: Diabetes: >=200 mg/dL plus symp toms BUN 29 (H) 10 - 20 mg/dL [facility] Creatinine 3.16 (H) 0.80 - 1.50 mg/dL [facility] Sodium 139 135 - 145 mmol/L [facility] Potassium 4.9 3.5 - 5.0 mmol/L [facility] Comment: Please note: ??Patients with WBC >100,00 0 may have falsely elevated Potassium levels. ??For accurate Potassium quantif ication in these patients send serum separator tube (gold top) for subsequent determinations. ??Contact the Clinical Chemistry Laboratory if there are any qu estions. Chloride 108 (H) 98 - 107 mmol/L [facility] CO2 21 (L) 22 - 31 mmol/L [facility] Anion Gap 10 5 - 15 mmol/L [facility] Calcium 8.8 8.5 - 10.5 mg/dL [facility] Total Protein 6.9 6.1 - 8.0 g/dL [facility] Albumin 3.2 3.2 - 5.2 g/dL [facility] AST 16 0 - 39 unit/L [facility] ALT 15 0 - 55 unit/L [facility] Alk Phos 131 (H) 40 - 130 unit/L [facility] Total Bilirubin 0.2 0.2 - 1.3 mg/dL [facility] Estimated GFR 21 (L) >=60 mL/min/1.73 m?? [facility] Comment: This patient's [...] Organization Address City/State/[place] [address] Cholesterol, total (03/17/2022 11:44 AM EDT) athologist Signature Chol, Total 91 mg/dL [facility] Comment: Lower Risk: <200 mg/dL Average Risk: 200-239 mg/dL Higher Risk: >ns=584 mg/dL Lipid Interpretation See Note [facility] Comment: Lipid management should be guided by a p atient? s ASCVD risk, goals and preferences. ACC/AHA Guidelines recommend high intens ity statin if clinical ASCVD or LDL greater than or equal to 190 mg/dL. http://iovoxurl.com/DQA-BSW-Ykjihahai Adults aged 40-75 with LDL 70-189 mg/dL should have their 10 year ASCVD risk estimated with the ACC/AHA ASCVD risk es timator http://tools.acc.org/QZPGB-Shxj-Jdcrfumi r/ Statin should be discussed if risk [...] Garnett MD CHEMISTRY ORDERABLES Performing Organization Address City/[facility]/ZIP Code Phon e Number [address] Magnesium (03/17/2022 11:44 AM EDT) P athologist Signature Magnesium 0.71 0.69 - 1.07 [facility] mmol/L [facility] Specimen Anatomical Collection Method Collection Time Receive d Time (Source) Location / / Volume Laterality Blood 03/17/2022 11:44 03/17/2022 AM EDT 12:08 PM EDT Resulting Agency Comment Spec In Lab Alejo Garnett MD CHEMISTRY ORDERABLES Performing Organization Address City/[facility]/ZIP Code Phon e Number [address] Phosphorus (03/17/2022 11:44 AM EDT) P athologist Signature Phosphorus 3.4 2.5 - 4.5 [facility] mg/dL [facility] Specimen Anatomical Collection Method Collection Time Receive d Time (Source) Location / / Volume Laterality Blood 03/17/2022 11:44 03/17/2022 AM EDT 12:08 PM EDT Resulting Agency Comment Spec In Lab Alejo Garnett MD CHEMISTRY ORDERABLES Performing Organization Address City/[facility]/ZIP Code Phon e Number [address] Uric acid (03/17/2022 11:44 AM EDT) P athologist Signature Uric Acid 8.1 3.5 - 8.5 [facility] mg/dL [facility] Specimen Anatomical Collection Method Collection Time Receive d Time (Source) Location / / Volume Laterality Blood 03/17/2022 11:44 03/17/2022 AM EDT 12:08 PM EDT Resulting Agency Comment Spec In Lab Alejo Garnett MD CHEMISTRY ORDERABLES Performing Organization Address City/[facility]/ZIP Code [place] [address] Tacrolimus level (03/17/2022 11:44 AM EDT) P athologist Signature Tacrolimus Lvl 4.4 ng/mL [facility] Comment: Trough therapeutic [...] Garnett MD CHEMISTRY ORDERABLES Performing Organization Address City/[facility]/ZIP Code [place] [address] documented in this encounter Visit Diagnoses Diagnosis Left chronic serous otitis media Simple or unspecified chronic serous beth tis media 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
--- OUTSIDE RECORDS SUMMARY | 2022-06-16 12:21 | XMS_ITS | Encounter Summary ---
:1955 Author Organization [place] [address] Care Team Providers Name Role Phone Violetta Sanford MD Primary Care Provider Reason for Visit Reason Onset Date Comments Medication Refill 03/17/2022 Encounter Details Date Type Department Care Team Description 03/17/2022 Refill Solid Organ Transplant at [facility] Alejo france MD [facility] nayeli TRANS[place] [address] [place] [address] [phone] (Oscar escobedo) Social History Tobacco Use Types Packs/Day Years [...] Neurology Tyler Rojas MD [facility] Neurology [place], [place] [phone] (Wo rk) 06/29/2022 Appointment Cardiology Violetta Sanford M D [address] [place], [place] [id number] (Oscar rk) 06/30/2022 Infusion Hematology and Oncology 07/14/2022 Infusion Hematology and Oncology 07/28/2022 Infusion Hematology and Oncology 08/11/2022 Infusion Hematology and Oncology 08/16/2022 Office Visit Audiology Mindy Moody, WENDI [facility] AUDIOLOGY [place], [place] [address] (Wo rk) 11/04/2022 Office Visit Rheumatology Dante Freedman, PA [facility] RHEUMATOLOGY [place], [place] [address] (Wo rk) documented as of this encounter Visit Diagnoses Not on filedocumented in this encounter Care Teams Financial Assistance Advisor Relationship Specialty Start Date End Date Violetta Sanford MD PCP - General 04/02/14 [address] [place] [address] documented as of this encounter
--- OUTSIDE RECORDS SUMMARY | 2022-06-16 12:21 | XMS_ITS | Encounter Summary ---
:1955 Author Organization [facility] [place] [address] Care Team Providers Name Role Phone Violetta Sanford MD Primary Care Provider Encounter Details Date Type Department Care Team Description 02/22/2022 Telephone Gastroenterology at [facility] [place] [address] Social History Tobacco Use Types Packs/Day Years Used Date Smoking Tobacco: Former Cigarettes 2 20 Quit : 01/19/1993 Smokeless Tobacco: Never Alcohol Use Standard Drinks/Week Comments Yes 0 (1 standard drink = 0.6 oz pure alcoho l) Once a year Sex Assigned at Date Recorded Not on file documented as of this encounter Miscellaneous Notes Telephone Encounter - Jasiel October - 02/22/2022 10:42 AM EDT Leroy Torres [id number] Diagnosis/Indication: esophageal dysphagia. Please obtain panesophageal bx. [...] No 18. You must have a responsible libertarian who will drive you to your procedure, stay on campus for the entire duration of your procedure, and drive you home from your procedure. Who will likely be your fence post driver for the procedure? *Please Verify the height [...] Rojas MD [facility] Neurology [place], [place] [phone] (Wo rk) 06/29/2022 Appointment Cardiology Violetta Sanford M D [address] [place], [place] [address] (Wo rk) 06/30/2022 Infusion Hematology and Oncology 07/14/2022 Infusion Hematology and Oncology 07/28/2022 Infusion Hematology and Oncology 08/11/2022 Infusion Hematology and Oncology 08/16/2022 Office Visit Audiology Mindy Moody AUD [facility] AUDIOLOGY [place], [place] [address] (Wo rk) 11/04/2022 Office Visit Rheumatology Dante Freedman PA [facility] RHEUMATOLOGY [place], [place] [address] (Wo rk) documented as of this encounter Visit Diagnoses Not on filedocumented in this encounter Care Teams Machine Shop Apprentice Relationship Specialty Start Date End Date Violetta Sanford MD PCP - General 04/02/14 [address] [place], [place] [address] documented as of this encounter
--- OUTSIDE RECORDS SUMMARY | 2022-06-16 12:21 | XMS_ITS | Encounter Summary ---
:1955 Author Organization [facility] [place] [address] Care Team Providers Name Role Phone Violetta Sanford MD Primary Care Provider Reason for Visit Diagnostic Test (Routine) - Closed Specialty Diagnoses / Procedures Referred By Contact Refer red To Contact Gastroenterology Diagnoses Dysphagia, unspecified type HREM - dysphagia Shira Ramírez, [facility] Gastro 4t Procedures High Resolution Esophageal Manometry HREM - dysphagia HOSPICE OFFICE COORDINATOR [facility] [place] [address] [place] [address] Referral ID Status Reason Start Date Expiration Date Visits V isits Requested Authorized [id number] Closed Test Only 02/16/2022 02/16/2023 1 1 Encounter Details Date Type Department Care Team Description 02/25/2022 Procedure visit Gastroenterology at [facility] Dysphagia, [facility] [place] [address] Social History Tobacco Use Types Packs/Day Years [...] MANOMETRY PROCEDURE NOTE Patient: Leroy Torres Address: [address] [place] [id number] : 1955 Date of service: 02/25/22 Indication: [...] relaxation pressure: 0.0 mmHg (normal <12 mmHg) Veterinarian Helper swallow: Impressions based on [place] Classification v4.0: No evidence of a clinically significant disorder of peristalsis or EGJ outflow obstruction. *These findings assume that mechanical obstruction has been ruled out. Koby Jimenez MD Section of Gastroenterology and Hepatology [facility] [place] [address] V: [phone] F: [phone] CC/EC: MD Constant[address] [place] [address] documented in this encounter Plan of Treatment Upcoming Encounters Date Type Specialty Care Team Description 06/16/2022 Infusion Hematology and Oncology 06/21/2022 Office Visit Neurology Tyler Rojas MD [facility] [address] [place], [place] [phone] (Wo gregg) 06/29/2022 Appointment Cardiology Violetta Sanford M D [address] [place] [address] (Wo gregg) 06/30/2022 Infusion Hematology and Oncology 07/14/2022 Infusion Hematology and Oncology 07/28/2022 Infusion Hematology and Oncology 08/11/2022 Infusion Hematology and Oncology 08/16/2022 Office Visit Audiology Mindy Moody AUD [facility] AUDIOLOGY [place], [place] [address] (Wo rk) 11/04/2022 Office Visit Rheumatology Datne Freedman, PA [facility] RHEUMATOLOGY [place], [place] [address] (Wo rk) documented as of this encounter Visit Diagnoses Diagnosis Dysphagia, unspecified type documented in this encounter Care Teams Fish And Wildlife Technician Relationship Specialty Start Date End Date Violetta Sanford MD PCP - General 04/02/14 [address] [place] [address] documented as of this encounter
--- OUTSIDE RECORDS SUMMARY | 2022-06-16 12:21 | XMS_ITS | Encounter Summary ---
:1955 Author Organization [place] [address] Care Team Providers Name Role Phone Violetta Sanford MD Primary Care Provider Encounter Details Date Type Department Care Team Description 04/19/2022 Anesthesia Event Gastroenterology at [facility] [place]é [place] [address] [address] [phone] ANESTHESIOLOGY [place], [place] [address] Anesthesia Record Procedure Summary Procedure Name Responsible Anesthesia Start Anesthesia Stop Time Anesthesiologist Time EGD WITH BIOPSY Josué Gutierrez MD 04/19/22 0848 04/19/22 0913 (WRVU 2.49) (Trunk) Events Date Time Event Comment 04/19/2022 0800 [...] (antecubital fossa), R, RN R, RN right; vxnu-uzp-fpluvy catheter system; 20 gauge; Cecily Steele; tolerated [...] OR Notes Anesthesia Postprocedure Evaluation - Josué Gutierrze MD - 04/19/2022 9:31 AM EDT Department of Anesthesiology Post-procedure Note Patient: Leroy Torres Procedure Summary Date: 04/19/22 Room / Location: [facility] ENDO 2 / [facility] ENDOSCOPY Anesthesia Start: 847 Anesthesia Stop: 912 Procedure: EGD WITH BIOPSY (WRVU 2.49) (N/A Trunk) Diagnosis: Dysphagia, unspecified type (esophageal dysphagia. Please obtain panesophageal bx.) Surgeons: Kimo Singh MD Responsible Provider: Josué Gutierrez MD Anesthesia Type: MAC ASA Status: 3 All Anesthesia Providers: Anesthesiologist: Josué Gutierrez MD TRUCK JUMPER: Shandra Martin CRNA; Cesar Beltrán CRNA Vitals Value Taken Time BP 130/109 04/19/22 0920 Temp Pulse Resp 15 04/19/22 0920 SpO2 96 % 04/19/22 0931 Pain Level 0 04/19/22 0920 Vitals shown include unvalidated device data. Patient Location: PACU/[facility] Level of Consciousness: Conscious but Sleepy Pain [...] immunotherapy 03/21/2019 ??? Persistent proteinuria 03/08/2017 ??? longterm current use of immunosuppressive drug 07/23/2016 ??? [...] Bone Marrow 10/22/[address] [facility] RAD CT SCAN ??? PRO AMPUTATION LOW LEG THRU TIB/FIB 06/21/2011 ??AMPUTATION, BELOW-KNEE performed by HENNA GAMINO JR at [facility] MAIN OR ??? PRO CREATE EARDRUM OPENING, GEN ANESTH Left 02/09/2022 MYRINGOTOMY, INSERTION OF TUBE (WRVU 2.01) performed by Archie Avila MD at [facility] MAIN OR ??? PRO INCISION EARDRUM,ASPIR Left 12/29/2021 MYRINGOTOMY ASPIRATION OF MIDDLE EAR (WRVU 1.38) performed by Iraj Scott MD at [facility] MAIN OR ??? PRO LAP, APPENDECTOMY 06/16/2013 LAPAROSCOPIC APPENDECTOMY performed by Angel Mccann MD at [facility] MAIN OR ??? PRO MICROSURG TECHNIQUES, REQ OPER MICROSCOPE Left 12/29/2021 MICROSCOPE USE (WRVU 3.46) performed by Iraj Scott MD at [facility] MAIN OR ??? PRO MICROSURG TECHNIQUES, REQ OPER MICROSCOPE Left 02/09/2022 MICROSCOPE USE (WRVU 3.46) performed by Archie Avila MD at [facility] MAIN OR ??? US RENAL TRANSPLANT LEFT Left 06/26/2019 US Renal Transplant Left 06/26/2019 [facility] RAD ULTRASOUND Social History Tobacco Use ??? [...] ETT in 2012 and LMA5 in 2018. Stress test 2014: no WMA. EF 70%. [...] risks discussed with patient. Plan discussed with TRUCK JUMPER. Anesthesia Screening documented in this encounter Plan of Treatment Upcoming Encounters Date Type Specialty Care Team Description 06/16/2022 Infusion Hematology and Oncology 06/21/2022 Office Visit Neurology Tyler Rojas MD [facility] Neurology [place], [place] [phone] ( gregg) 06/29/2022 Appointment Cardiology Violetta Sanford M D [address] [place] [address] ( rk) 06/30/2022 Infusion Hematology and Oncology 07/14/2022 Infusion Hematology and Oncology 07/28/2022 Infusion Hematology and Oncology 08/11/2022 Infusion Hematology and Oncology 08/16/2022 Office Visit Audiology Mindy Moody AUD [facility] AUDIOLOGY DEPT [place], [place] [address] (Wo rk) 11/04/2022 Office Visit Rheumatology Dante Freedman PA [facility] RHEUMATOLOGY [place], [place] [address] ([facility]) documented as of this encounter Visit Diagnoses [...] Intra-op documented in this encounter Care Teams Associate Software Application Engineer Relationship Specialty Start Date End Date Violetta Sanford MD PCP - General 04/02/14 [address] [place] [address] documented as of this encounter
--- OUTSIDE RECORDS SUMMARY | 2022-06-16 12:21 | XMS_ITS | Encounter Summary ---
:1955 Author Organization [facility] [place] [address] Care Team Providers Name Role Phone Violetta Sanford MD Primary Care Provider Reason for Visit Reason Comments Injections Aranesp Treatment/Therapy Plan Authorization (Routine) - Authorized Specialty Diagnoses / Procedures Referred By Contact Refer red To Contact Hematology and Diagnoses CKD (chronic kidney disease) stage 4, GFR 15-29 ml/min Nicky Baez Elizabeth Oncology Procedures MD James NUR MD [address] HEMATOLOGY/ONCOLOGY [place], [place] DEPT. [phone] [place] [id number] Referral ID Status Reason Start Date Expiration Date Visits V isits Requested Authorized [id number] Authorized 10/08/2020 07/24/2023 99 99 Encounter Details Date Type Department Care Team Description 02/24/2022 Infusion Hematology Oncology at [facility] of chronic renal [facility] failure, stage 4 (severe) [address] [place], [place] [phone] Social History Tobacco Use Types [...] BSA by Sumeet Burnette RN and [facility] on-site ?? REACTIONS (DESCRIPTION, TIME, INTERVENTION AND EFFECTIVENESS) none ?? ASSESSMENT Reuben was awake, alert and tolerated treatment well. ?? PLAN Return to clinic in 2 weeks documented in this encounter Plan of Treatment Upcoming Encounters Date Type Specialty Care Team Description 06/16/2022 Infusion Hematology and Oncology 06/21/2022 Office Visit Neurology Tyler Rojas MD [facility] Neurology [place], [place] [phone] (Oscar escobedo) 06/29/2022 Appointment Cardiology Violetta Sanford M D [address] [place] [address] (Oscar escobedo) 06/30/2022 Infusion Hematology and Oncology 07/14/2022 Infusion Hematology and Oncology 07/28/2022 Infusion Hematology and Oncology 08/11/2022 Infusion Hematology and Oncology 08/16/2022 Office Visit Audiology Mindy Moody AUD [facility] AUDIOLOGY DEPT [place], [place] [address] (Wo rk) 11/04/2022 Office Visit Rheumatology Dante Freedman PA [facility] RHEUMATOLOGY [place], [place] [address] (Wo rk) documented as of [...] (CKD) documented in this encounter Care Teams Product Safety Head Relationship Specialty Start Date End Date Violetta Sanford MD PCP - General 04/02/14 [address] [place] [address] documented as of this encounter
--- OUTSIDE RECORDS SUMMARY | 2022-06-16 12:21 | XMS_ITS | Encounter Summary ---
:1955 Author Organization [facility] [place] [address] Care Team Providers Name Role Phone Violetta Sanford MD Primary Care Provider Reason for Referral Diagnostic Test (Routine) - Closed Specialty Diagnoses / Procedures Referred By Contact Refer red To Contact Gastroenterology Diagnoses Dysphagia, unspecified type HREM - dysphagia Shira Ramírez [facility] Gastro 4t Procedures High Resolution Esophageal Manometry HREM - dysphagia RN MDS COORDINATOR [facility] [place] [address] Referral ID Status Reason Start Date Expiration Date Visits V isits Requested Authorized [id number] Closed Test Only 02/16/2022 02/16/2023 1 1 Reason for Visit Consultation (Routine) - Authorized Specialty Diagnoses / Procedures Referred By Contact Refer red To Contact Gastroenterology Diagnoses Dysphagia, unspecified type dysphagia Violetta Sanford MD [facility] Gastro 4l [facility] [address] [address] Phone: Fax: Referral ID Status Reason Start Expiration Visits Visits Date Date Requested Authorized [id number] Authorized Consult, 12/04/2021 12/04/2022 6 6 Test & Treat PCP Updated and/or Approved Encounter Details Date Type Department Care Team Description 02/16/2022 Office Visit Gastroenterology at [facility] Dilan Ramírez, [facility] Giovana Zurita [place] [address] [facility] [phone] [place] [address] Social History Tobacco Use Types Packs/Day Years [...] documented in this encounter Patient Instructions Patient InstructionsSieglingerShira APRN - 02/16/2022 3:00 PM EDT Upper endoscopy with anesthesia. Please feel free to call us to set up this appointment. The secretaries should reach out to you within a few days, but definitely call us if you do not hear from us within a few days. 2. Esophageal manometry. You will hear from our solar sales representative and assessor to set this up once an appointment becomesavailable. You should hear from someone within one week. If not please call us. 3. Five minute timed barium swallow. Please call radiology to schedule your imaging studies at the [facility]. Main radiology scheduling line 4. Follow-up [...] Gilberto 2 Sensor Kit 1 each by [facility].(Non-Drug; Combo Route) route every 14 days. Use to continuously monitor blood glucose. Scan at least 4 times per day. 6 kit 3 ??? FreeStyle Gilberto 2 Chelan Misc Use to continuously monitor blood glucose. [...] 14 Day Sensor Kit 1 each by [facility].(Non-Drug; Combo Route) [...] Blood-Glucose Sensor (Dexcom G6 Sensor) Device by [facility].(Non-Drug; Combo Route) route. Sensor, clay modeler andtransmitter ??? metoprolol succinate XL (Toprol-XL) 50 mg Tablet Sustained Release 24 hr Take 1 tablet by mouth daily. 90 tablet 1 ??? amLODIPine (Norvasc) 10 mg Tablet Take 0.5 tablets by mouth daily. 90 tablet 3 ??? fluticasone propionate (FLONASE) 50 mcg/actuation [place], Suspension INSTILL 2 SPRAYS INTO EACH NOSTRIL [...] gauge x 1/2 Needle 1 Device by [facility].(Non- Drug; Combo Route) [...] Reported on 08/06/2016 ??? 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 Family History: denies family history [...] of prior records): 1. Colonoscopy done at [facility] on 11/11/2020; pathology report available through [facility] records. Tubular adenoma. 2. Modified barium swallow [...] after testing Shira Ramírez APRN [facility] [place] [address] documented in this encounter Plan of Treatment Upcoming Encounters Date Type Specialty Care Team Description 06/16/2022 Infusion Hematology and Oncology 06/21/2022 Office Visit Neurology Tyler Rojas MD [facility] [address] [place] [phone] (Wo rk) 06/29/2022 Appointment Cardiology Violetta Sanford M D [address] [place], [place] [address] (Wo rk) 06/30/2022 Infusion Hematology and Oncology 07/14/2022 Infusion Hematology and Oncology 07/28/2022 Infusion Hematology and Oncology 08/11/2022 Infusion Hematology and Oncology 08/16/2022 Office Visit Audiology Mindy Moody, [facility] AUDIOLOGY [place], [place] [address] (Wo rk) 11/04/2022 Office Visit Rheumatology Dante Freedman, PA [facility] RHEUMATOLOGY [place], [place] [address] (Wo rk) Scheduled Orders Name [...] type documented in this encounter Care Teams Art Critic Relationship Specialty Start Date End Date Violetta Sanford MD PCP - General 04/02/14 [address] [place], [place] [address] documented as of this encounter
--- OUTSIDE RECORDS SUMMARY | 2022-06-16 12:21 | XMS_ITS | Encounter Summary ---
:1955 Author Organization [facility] Address [facility] [place] [address] Care Team Providers Name Role Phone Violetta Sanford MD Primary Care Provider Reason for Visit Reason Comments Medication Refill Encounter Details Date Type Department Care Team Description 03/23/2022 Refill Solid Organ Transplant Alejo Garnett Transplanted kidney; [place] [facility] [place] Thang Other complication of kidney transplant; [facility] Pro [place] [address] TRANSPLANT SURGERY [phone] [place], [place] [address] (Oscar escobedo) Social History Tobacco Use Types [...] [facility] Dr [place] [place], [place] [phone] (Wo rk) 06/29/2022 Appointment Cardiology Violetta Sanford M D [address] [place], [place] [id number] (Oscar rk) 06/30/2022 Infusion Hematology and Oncology 07/14/2022 Infusion Hematology and Oncology 07/28/2022 Infusion Hematology and Oncology 08/11/2022 Infusion Hematology and Oncology 08/16/2022 Office Visit Audiology Mindy Moody, [facility] AUDIOLOGY [place], [place] [address] (Wo rk) 11/04/2022 Office Visit Rheumatology Dante Freedman, PA [facility] RHEUMATOLOGY [place], [place] [address] (Wo rk) documented as of this encounter Visit Diagnoses Diagnosis Transplanted kidney Kidney replaced by transplant Other complication of kidney transplant Prophylactic immunotherapy Need for prophylactic immunotherapy documented in this encounter Care Teams Construction Analyst Relationship Specialty Start Date End Date Violetta Sanford MD PCP - General 04/02/14 [facility] [address] [facility] [place] [address] documented as of this encounter
--- OUTSIDE RECORDS SUMMARY | 2022-06-16 12:21 | XMS_ITS | Encounter Summary ---
:1955 Author Organization [facility] [place] [address] Care Team Providers Name Role Phone Violetta Sanford MD Primary Care Provider Encounter Details Date Type Department Care Team Description 03/17/2022 Office Visit Audiology at [facility] [place] sensorineural h earing loss; [facility] W[facility]I [place] History of tympanostomy tube placement [facility] [address] AUDIOLOGY DEPT [phone] [place], [place] [address] Social History Tobacco Use Types [...] AUD - 03/17/2022 9:45 AM EDT AUDIOLOGY [place], [place] Name: Leroy Torres Age: 66 y.o. Patient was seen for an audiologic evaluation in conjunction with an appointment with ENT. Please refer to the audiogram (under 'procedures' tab) for background/history, findings, impressions, and recommendations. Today's findings and recommendations were shared with the patient/family at the time of the visit. Wendi Szymanski, [facility], [facility] [place] [address] (v) [phone] / (f) [phone] documented in this encounter Plan of Treatment Upcoming Encounters Date Type Specialty Care Team Description 06/16/2022 Infusion Hematology and Oncology 06/21/2022 Office Visit Neurology Tyler Rojas MD [facility] Neurology [place], [place] [phone] (Wo rk) 06/29/2022 Appointment Cardiology Violetta Sanford M D [address] [place] [address] (Wo rk) 06/30/2022 Infusion Hematology and Oncology 07/14/2022 Infusion Hematology and Oncology 07/28/2022 Infusion Hematology and Oncology 08/11/2022 Infusion Hematology and Oncology 08/16/2022 Office Visit Audiology Mindy Moody AUD [facility] AUDIOLOGY DEPT [place], [place] [address] (Wo rk) 11/04/2022 Office Visit Rheumatology Dante Freedman PA [facility] RHEUMATOLOGY [place], [place] [address] (Wo rk) documented as of [...] HL for which has bilateral GARCIA (managing vehicle inspector is Dr. Moody). To day, patient reported [...] hearing. 3) follow- up appointment to managing vehicle inspector for GARCIA needs - p rovided there [...] HL for which has bilateral GARCIA (managing vehicle inspector is Dr. Modoy). To day, patient reported improved hearing LT [...] frequencies. Word recognition (using CD- recorded, MEEI /2 list at patient's reported MCL): RT=76% and LT= 64%. RECS: 1) Continued m edical management of hearing loss. 2) Reeval of hearing as per ENT; sooner if concerns arise of possible change in hearing. 3) follow- up appointment to managing vehicle inspector for GARCIA needs - p rovided there are no medical contraindications to resuming GARCIA use at this time. [facility] ORDERABLE S Performing Organization Address City/State/ZIP Code Phon e Number AUDBASE COMP documented in this encounter Visit Diagnoses Diagnosis Asymmetrical sensorineural hearing loss Sensorineural hearing loss, asymmetrical History of tympanostomy tube placement documented in this encounter Care Teams Engine Service Repairer Relationship Specialty Start Date End Date Violetta Sanford MD PCP - General 04/02/14 [address] [place] [address] documented as of this encounter
--- OUTSIDE RECORDS SUMMARY | 2022-06-16 12:21 | XMS_ITS | Encounter Summary ---
:1955 Author Organization [facility] [place] [address] Care Team Providers Name Role Phone Violetta Sanford MD Primary Care Provider Reason for Visit Reason Comments Injections aranesp Treatment/Therapy Plan Authorization (Routine) - Authorized Specialty Diagnoses / Procedures Referred By Contact Refer red To Contact Hematology and Diagnoses CKD (chronic kidney disease) stage 4, GFR 15-29 ml/min Nicky Baez Elizabeth Oncology Procedures MD James NUR MD [address] HEMATOLOGY/ONCOLOGY [place], [place] DEPT. [id number] [place] [id number] Referral ID Status Reason Start Date Expiration Date Visits V isits Requested Authorized [id number] Authorized 10/08/2020 07/24/2023 99 99 Encounter Details Date Type Department Care Team Description 02/10/2022 Infusion Hematology Oncology at [facility] of chronic renal [facility] failure, stage 4 (severe) [address] [place], [place] [phone] Social History Tobacco Use [...] no complaints. OBJECTIVE LAB DATA: completed at [facility] 01/28/22 WBC 6.64, HGB 8.9, HCT 29.2, PLT 167, ANC 3.91 Ferritin 135 Pre administration: Medication orders independently verified for drug name, route, and dosage per patient's height, weight and BSA by Jumana Saab RN and [facility] - [...] Rojas MD [facility] Neurology [place], [place] [phone] (Oscar escobedo) 06/29/2022 Appointment Cardiology Violetta Sanford M D [address] [place] [address] (Oscar escobedo) 06/30/2022 Infusion Hematology and Oncology 07/14/2022 Infusion Hematology and Oncology 07/28/2022 Infusion Hematology and Oncology 08/11/2022 Infusion Hematology and Oncology 08/16/2022 Office Visit Audiology Mindy Moody AUD [facility] AUDIOLOGY [place], [place] [address] (Wo rk) 11/04/2022 Office Visit Rheumatology Dante Freedman, PA [facility] RHEUMATOLOGY [place], [place] [address] (Wo rk) documented as of [...] (CKD) documented in this encounter Care Teams Trimming Operator Relationship Specialty Start Date End Date Violetta Sanford MD PCP - General 04/02/14 [facility] [address] [place] [address] documented as of this encounter
--- OUTSIDE RECORDS SUMMARY | 2022-06-16 12:21 | XMS_ITS | Encounter Summary ---
:1955 Author Organization [place] [address] Care Team Providers Name Role Phone Violetta Sanford MD Primary Care Provider Encounter Details Date Type Department Care Team Description 03/04/2022 Refill Solid Organ Transpla nt at [facility] [place] [address] Social History Tobacco Use Types Packs/Day Years [...] UTI. He confirmed his local pharmacy is [facility] in [place]. Telephone Encounter - Aria Khan RN - 03/04/2022 2:18 PM EDT Received urine culture results from 02/24 which indicated a UTI with need of treatment. Per Taj Lloyd RADIATION CONTROL HEALTH PHYSICIST: 1. Cipro 500 mg daily X 10 [...] Rojas MD [facility] Neurology [place], [place] [phone] (Wo rk) 06/29/2022 Appointment Cardiology Violetta Sanford M D [address] [place], [place] [id number] (Wo rk) 06/30/2022 Infusion Hematology and Oncology 07/14/2022 Infusion Hematology and Oncology 07/28/2022 Infusion Hematology and Oncology 08/11/2022 Infusion Hematology and Oncology 08/16/2022 Office Visit Audiology Mindy Moody AUD [facility] AUDIOLOGY DEPT [place], [place] [address] (Wo rk) 11/04/2022 Office Visit Rheumatology Dante Freedman PA [facility] RHEUMATOLOGY [place], [place] [address] (Wo rk) documented as of this encounter Visit Diagnoses Not on filedocumented in this encounter Care Teams Fellmongering Machine Operator Relationship Specialty Start Date End Date Violetta Sanford MD PCP - General 04/02/14 [address] [place], [place] [id number] documented as of this encounter
--- OUTSIDE RECORDS SUMMARY | 2022-06-16 12:21 | XMS_ITS | Encounter Summary ---
:1955 Author Organization [facility] [place] [address] Care Team Providers Name Role Phone Violetta Sanford MD Primary Care Provider Reason for Visit Reason Comments Injections Aranesp Treatment/Therapy Plan Authorization (Routine) - Authorized Specialty Diagnoses / Procedures Referred By Contact Refer red To Contact Hematology and Diagnoses CKD (chronic kidney disease) stage 4, GFR 15-29 ml/min Nicky Baez Elizabeth Oncology Procedures MD James NUR MD [address] HEMATOLOGY/ONCOLOGY [place], [place] DEPT. [id number] [place] [id number] Referral ID Status Reason Start Date Expiration Date Visits V isits Requested Authorized [id number] Authorized 10/08/2020 07/24/2023 99 99 Encounter Details Date Type Department Care Team Description 03/10/2022 Infusion Hematology Oncology at [facility] of chronic renal [facility] failure, stage 4 (severe) [address] [place], [place] [phone] Social History Tobacco Use [...] documented in this encounter Patient Instructions Patient InstructionsLindsay Lerma RN - 03/10/2022 1:00 PM EDT Please have your CBC drawn next week (03/17/22) at [facility] when you are there for Transplant follow [...] and BSA by Lindsay Lerma, SHEIL[facility] [...] Rojas MD [facility] Neurology [place], [place] [phone] (Wo rk) 06/29/2022 Appointment Cardiology Violetta Sanford M D [address] [place] [address] (Wo rk) 06/30/2022 Infusion Hematology and Oncology 07/14/2022 Infusion Hematology and Oncology 07/28/2022 Infusion Hematology and Oncology 08/11/2022 Infusion Hematology and Oncology 08/16/2022 Office Visit Audiology Mindy Moody AUD [facility] AUDIOLOGY DEPT [place], [place] [address] (Wo rk) 11/04/2022 Office Visit Rheumatology Dante Freedman PA [facility] RHEUMATOLOGY [place], [place] [address] (Wo rk) documented as of [...] (CKD) documented in this encounter Care Teams Cigar Patcher Relationship Specialty Start Date End Date Violetta Sanford MD PCP - General 04/02/14 [address] [place], [place] [address] documented as of this encounter
--- OUTSIDE RECORDS SUMMARY | 2022-06-16 12:21 | XMS_ITS | Encounter Summary ---
:1955 Author Organization [facility] [place] [address] Care Team Providers Name Role Phone Violetta Sanford MD Primary Care Provider Reason for Visit Reason Onset Date Comments Labs Only 02/10/2022 Lab Tracking Encounter Details Date Type Department Care Team Description 02/10/2022 Telephone Hematology/Oncology at [facility], Labs Only (Lab Tracking) [facility] Angelica Gilbert RN [address] [place] [phone] Social History Tobacco Use Types Packs/Day [...] 11:51 AM EDT LAB TRACKING Leroy Torres [id number] 1955 ?? DIAGNOSIS: Anemia d/t CKD stage IV, h/o kidney transplant ?? LABS: CBC every 4 weeks as of 05/27/21 ?? MEDICATIONS: Aranesp 300 mcg every 2 weeks if HGB <12 as of 05/27/21 Venofer x 3 weeks last given 12/16/21 ASSESSMENT/PLAN: Labs done 01/[address] [facility]. Pt received aranesp that day. Labs again [...] Rojas MD [facility] Neurology [place], [place] [phone] (Wo rk) 06/29/2022 Appointment Cardiology Violetta Sanford M D [facility] [address] [place] [address] (Wo rk) 06/30/2022 Infusion Hematology and Oncology 07/14/2022 Infusion Hematology and Oncology 07/28/2022 Infusion Hematology and Oncology 08/11/2022 Infusion Hematology and Oncology 08/16/2022 Office Visit Audiology Mindy Moody AUD [facility] AUDIOLOGY DEPT [place], [place] [address] (Wo rk) 11/04/2022 Office Visit Rheumatology Dante Freedman PA [facility] RHEUMATOLOGY [place], [place] [address] (Wo rk) documented as of this encounter Procedures Procedure Name Priority Date/Time Associated Diagnosis Comme nts CBC (WITH DIFF) Routine 01/28/2022 Results for this procedure are in the resu lts section. documented in this encounter Results CBC (with Diff) (01/28/2022) P athologist Signature WBC 6.64 Hemoglobin 8.9 Hematocrit 29.2 Platelets 167 Neutr Abs (ANC) 3.91 Specimen (Source) Anatomical Location Collection Method / Collectio n Time Received Time / Laterality Volume Blood Historical Provider MD HEMATOLOGY ORDERABLES documented in this encounter Visit Diagnoses Not on filedocumented in this encounter Care Teams Wool Spotter Relationship Specialty Start Date End Date Violetta Sanford MD PCP - General 04/02/14 [address] [place] [address] documented as of this encounter
--- OUTSIDE RECORDS SUMMARY | 2022-06-16 12:21 | XMS_ITS | Encounter Summary ---
:1955 Author Organization [facility] [place] [address] Care Team Providers Name Role Phone Violetta Sanford MD Primary Care Provider Encounter Details Date Type Department Care Team Description 03/04/2022 External Results [place] [phone] Social History Tobacco Use Types Packs/Day [...] Rojas MD [facility] Neurology [place], [place] [phone] (Wo rk) 06/29/2022 Appointment Cardiology Violetta Sanford M D [address] [place] [address] [address] [place], [place] [address] (Oscar rk) 06/30/2022 Infusion Hematology and Oncology 07/14/2022 Infusion Hematology and Oncology 07/28/2022 Infusion Hematology and Oncology 08/11/2022 Infusion Hematology and Oncology 08/16/2022 Office Visit Audiology Mindy Moody AUD [facility] AUDIOLOGY DEPT [place], [place] [address] (Wo rk) 11/04/2022 Office Visit Rheumatology Dante Freedman PA [facility] RHEUMATOLOGY [place], [place] [address] (Wo rk) documented as of this encounter Procedures Procedure Name Priority Date/Time Associated Diagnosis Comme nts EXTERNAL LAB RESULTS Routine 02/24/2022 EXTERNAL LAB RESULTS Routine 02/24/2022 EXTERNAL LAB RESULTS Routine 02/24/2022 documented in this encounter Results External Lab Results (02/24/2022) Historical Provider MD CHEMISTRY ORDERABLES External Lab Results (02/24/2022) Historical Provider MD CHEMISTRY ORDERABLES External Lab Results (02/24/2022) Historical Provider MD CHEMISTRY ORDERABLES documented in this encounter Visit Diagnoses Not on filedocumented in this encounter Care Teams Complaint Clerk Relationship Specialty Start Date End Date Violetta Sanford MD PCP - General 04/02/14 [address] [place] [address] documented as of this encounter
--- OUTSIDE RECORDS SUMMARY | 2022-06-16 12:21 | XMS_ITS | Encounter Summary ---
:1955 Author Organization [facility] [place] [address] Care Team Providers Name Role Phone Violetta Sanford MD Primary Care Provider Reason for Visit Reason Onset Date Comments Labs Only 02/24/2022 Lab Tracking Encounter Details Date Type Department Care Team Description 02/24/2022 Telephone Hematology/Oncology at [facility], Labs Only (Lab Tracking) [facility] Angelica Gilbert RN [address] [place] [phone] Social History Tobacco Use Types Packs/Day [...] 12:02 PM EDT LAB TRACKING Leroy Torres [id number] 1955 ?? DIAGNOSIS: Anemia d/t CKD stage IV, h/o kidney transplant ?? LABS: CBC every 4 weeks as of 05/27/21 ?? MEDICATIONS: Aranesp 300 mcg every 2 weeks if HGB <12 as of 05/27/21 Venofer x 3 weeks last given 12/16/21 ASSESSMENT/PLAN: Labs at [facility]. Pt received aranesp today. Labs again 03/24. [...] Rojas MD [facility] Neurology [place], [place] [phone] (Wo rk) 06/29/2022 Appointment Cardiology Violetta Sanford M D [facility] [address] [address] (Wo rk) 06/30/2022 Infusion Hematology and Oncology 07/14/2022 Infusion Hematology and Oncology 07/28/2022 Infusion Hematology and Oncology 08/11/2022 Infusion Hematology and Oncology 08/16/2022 Office Visit Audiology Mindy Moody AUD [facility] AUDIOLOGY DEPT [place], [place] [address] (Wo rk) 11/04/2022 Office Visit Rheumatology Dante Freedman PA [facility] RHEUMATOLOGY [place], [place] [address] (Wo rk) documented as of [...] on filedocumented in this encounter Care Teams Crop And Soil Scientist Relationship Specialty Start Date End Date Violetta Sanford MD PCP - General 04/02/[address] [facility] [place] [address] documented as of this encounter
--- OUTSIDE RECORDS SUMMARY | 2022-06-16 12:21 | XMS_ITS | Encounter Summary ---
:1955 Author Organization [facility] [place] [address] Care Team Providers Name Role Phone Violetta Sanford MD Primary Care Provider Encounter Details Date Type Department Care Team Description 03/10/2022 Orders Only Hematology/Oncology at [place] Margaret James, Anemia of chronic [facility] HOSPICE ADMINISTRATOR renal failure, stage 4 [address] [facility] (severe) [place] [address] HEMATOLOGY/ONCOLOG [phone] Y DEPT. [place], [place] [address] Social History Tobacco Use Types [...] Rojas MD [facility] Neurology [place], [place] [phone] (Oscar rk) 06/29/2022 Appointment Cardiology Violetta Sanford M D [address] [place], [place] [address] (Oscar escobedo) 06/30/2022 Infusion Hematology and Oncology 07/14/2022 Infusion Hematology and Oncology 07/28/2022 Infusion Hematology and Oncology 08/11/2022 Infusion Hematology and Oncology 08/16/2022 Office Visit Audiology Mindy Moody AUD [facility] AUDIOLOGY DEPT [place], [place] [address] (Wo rk) 11/04/2022 Office Visit Rheumatology Dante Freedman, PA [facility] RHEUMATOLOGY [place], [place] [address] (Wo rk) Scheduled Orders Name Type Priority Associated Diagnoses Order S chedule CBC (with Diff) Lab Routine Anemia of chronic renal E xpected: 03/17/2022, failure, stage 4 (severe) Ex chan: 09/16/2022 documented as of this encounter Visit Diagnoses Diagnosis Anemia of chronic renal failure, stage 4 (severe) documented in this encounter Care Teams Project Internship Relationship Specialty Start Date End Date Violetta Sanford MD PCP - General 04/02/14 [address] [place] [address] documented as of this encounter
--- OUTSIDE RECORDS SUMMARY | 2022-06-16 12:21 | XMS_ITS | Encounter Summary ---
:1955 Author Organization [facility] [place] [address] Care Team Providers Name Role Phone Violetta Sanford MD Primary Care Provider Encounter Details Date Type Department Care Team Description 03/17/2022 Laboratory Appointment Lab [address] [place] [address] Social History Tobacco Use Types Packs/Day Years [...] Rojas MD [facility] [address] [place], [place] [phone] (Wo rk) 06/29/2022 Appointment Cardiology Violetta Sanford M D [address] [place] [address] (Wo rk) 06/30/2022 Infusion Hematology and Oncology 07/14/2022 Infusion Hematology and Oncology 07/28/2022 Infusion Hematology and Oncology 08/11/2022 Infusion Hematology and Oncology 08/16/2022 Office Visit Audiology Mindy Moody, WENDI [facility] AUDIOLOGY DEPT [place], [place] [address] (Wo rk) 11/04/2022 Office Visit Rheumatology Dante Freedman PA [facility] RHEUMATOLOGY [place], [place] [address] (Wo rk) documented as of this encounter Visit Diagnoses Not on filedocumented in this encounter Care Teams Marine Cargo Specialist Relationship Specialty Start Date End Date Violetta Sanford MD PCP - General 04/02/14 [address] [place] [address] documented as of this encounter
--- OUTSIDE RECORDS SUMMARY | 2022-06-16 12:21 | XMS_ITS | Encounter Summary ---
:1955 Author Organization [place] [address] Care Team Providers Name Role Phone Violetta Sanford MD Primary Care Provider Encounter Details Date Type Department Care Team Description 04/19/2022 Surgery Gastroenterology at [facility] Singh, Kimo Gilbert MD EGD WITH BIOPSY ([facility] 2.49) [place] [address] GASTROENTEROLOGY [place], [place] [address] Social History Tobacco Use Types [...] the day after the procedure, use an rscm-fxd-fcdxthy spray to numb your throat. Sucking on [...] occurs, please contact your Doctor. Please call [phone] before 8pm Mon-Fri with problems, questions or concerns. If you call after 8pm or on weekends, call the Hospital at [phone] and ask to speak to the Deposit Refund Clerk air conditioning unit tester and the polymerization kettle operator will contact that person for you. When should you call for help? Call [phone] anytime you think you may need emergency [...] any problems. Where can you learn more? [facility] View your After Visit Summary and more online at [email or web address] If you would like to provide feedback about your hospital experience, please call the Office of Patient and Family Relations at . If you have received this After Visit Summary in error, please immediately return it in person to the department, or notify the [facility] Privacy Office by calling toll free at between the hours of 8AM and 5PM to arrange for our retrieval of the documents at no cost to you. Content Version: 12.2 ?? [id number] [employer]. Care instructions adapted under license by [facility]. If you have questions about a medical condition or this instruction, always ask your healthcare professional. [employer] disclaims any warranty or liability for your [...] Use to continuously 1 each 0 2 [place] Misc monitor blood glucose. Scan at least [...] 6 kit 3 01/13/2021 Day Sensor Kit [facility].(Non-Drug; Combo Route) route every 14 days. Use to continuously monitor blood glucose. Scan at least 5 times per day. DX: E11.65 darbepoetin cristy in Inject 300 mg as 0 polysorbat 10 mcg/0.4 directed as needed. mL Syringe cyanocobalamin, Take 100 mcg by mouth 0 Vitamin B-12, daily. (Vitamin B-12) 100 mcg Tablet Blood-Glucose Sensor by [facility].(Non-Drug; 0 (Dexcom G6 Sensor) Combo Route) route. Device Sensor, souvenir assembler andtransmitter metoprolol succinate Take 1 tablet by mouth 90 tablet 1 04/2020 XL (Toprol-XL) 50 mg daily. Tablet Sustained Release 24 hr amLODIPine (Norvasc) Take 0.5 tablets by 90 tablet 3 2019 10 mg Tablet mouth daily. fluticasone INSTILL 2 SPRAYS INTO 0 09/06/2019 propionate (FLONASE) EACH NOSTRIL ONCE A 50 mcg/actuation DAY NEEDED [place], Suspension albuterol (PROVENTIL) Take 3 mLs by 90 mL 3 08/29/2019 2.5 mg /3 mL (0.083 nebulization every 4 %) Solution for hours as needed for Nebulization Wheezing. multivitamin with Take 1 tablet by mouth [...] by 100 each 03/09/2017 disposable, 29 gauge [facility].(Non-Drug; Combo x 1/2 Route) route 3 times [...] Devices by 4 each 0 12/02/2015 Supply [facility].(Non-Drug; Combo MiscIndications: S/P Route) route daily. 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 ciprofloxacin Instill 3 drops in 5 mL 3 03/17/2022 (Ciloxan) 0.3 % Drops left ear twice daily. prednisoLONE acetate Instill 3 drops in 5 mL 0 022 04/21/2022 (Pred-Forte) 1 % left ear twice daily. Drops, Suspension primidone (Mysoline) Take 1 tablet by mouth 120 tablet 3 10/202105/04/2022 50 mg Tablet 4 times daily. documented as of this encounter H&P [...] COPD (chronic obstructive pulmonary disease) J44.9 ??? superintendent terminal current use of immunosuppressive drug Z79.899 ??? [...] bird feathers ??? Penicillins ? Tolerated cefepime /16 ??? Sulfamethoxazole ? Other reaction(s): Unknown ??? [...] 06/21/2022 Office Visit Neurology Tyler Rojas MD [facility] Neurology [place], [place] [phone] ([facility]) 06/29/2022 Appointment Cardiology Violetta Sanford M D [address] [place] [address] ( rk) 06/30/2022 Infusion Hematology and Oncology 07/14/2022 Infusion Hematology and Oncology 07/28/2022 Infusion Hematology and Oncology 08/11/2022 Infusion Hematology and Oncology 08/16/2022 Office Visit Audiology Mindy Moody AUD [facility] AUDIOLOGY DEPT [place], [place] [address] (Wo rk) 11/04/2022 Office Visit Rheumatology Dante Freedman PA [facility] RHEUMATOLOGY [place], [place] [address] ( gregg) documented as of this encounter Procedures Procedure [...] AM 9:14 EDT AM EDT Narrative [facility] - 04/19/2022 9:14 AM EDT Specimen requisition ordered. ??Separate Pathology report to follow Kimo Singh MD PATHOLOGY/CYTOLOGY ORDERABLE S Performing Organization Address City/[facility] [place] [address] Specimen to Pathology (04/19/2022 9:14 AM EDT) Specimen Anatomical Collection Method Collection Time Receive d Time (Source) Location / / Volume Laterality AP Specimen 04/19/2022 9:14 AM 9:14 EDT AM [address]T [address] [facility] - 04/19/2022 9:14 AM EDT Specimen requisition ordered. ??Separate Pathology report to follow Kimo Singh MD PATHOLOGY/CYTOLOGY ORDERABLE S Performing Organization Address City/[facility] [place] [address] Specimen to Pathology (04/19/2022 9:14 AM EDT) Specimen Anatomical Collection Method Collection Time Receive d Time (Source) Location / / Volume Laterality AP Specimen 04/19/2022 9:14 AM 2 9:14 EDT AM EDT Narrative [facility] OR - 04/19/2022 9:14 AM EDT Specimen requisition ordered. ??Separate Pathology report to follow Kimo Singh MD PATHOLOGY/CYTOLOGY ORDERABLE S Performing Organization Address [facility]/ZIP Code Phon e Number [address] Specimen to Pathology (04/19/2022 9:14 AM EDT) Specimen Anatomical Collection Method Collection Time Receive d Time (Source) Location / / Volume Laterality AP Specimen 04/19/2022 9:14 AM 2 9:14 EDT [address]T [address] [facility] - 04/19/2022 9:14 AM EDT Specimen requisition ordered. ??Separate Pathology report to follow Kimo Singh MD PATHOLOGY/CYTOLOGY ORDERABLE S Performing Organization Address City/[facility] [place] [address] Surgical Pathology Report (04/19/2022 8:57 AM EDT) Component Value Ref Test Analysis Performed At [facility] Range Method Time Signature Surgical [id number] ? Location: 4T; EA06; A [facility] Report The signing pathologist has (i) examined the relevant preparation(s) for the [facility] specimen(s) and (ii) rendered or confirmed [...] Jaclyn Verified: ??04/26/2022 13:43 ??Pathologist Performed at: ??-[facility] Dept. of Pathology, [place], [place] DISCUSSION A, C - ??Yeast and [...] Address City/State/[place] [address] UPPER GI ENDOSCOPY (04/19/2022 8:39 AM EDT) Component Value Ref Test Analysis Performed Pathologis t Range Method Time At [facility] UPPER GI [facility]OVATION ENDOSCOPY Endoscopy Procedure Date: 04/19/2022 8:39 AM ? Patient Name: Leroy Torres ? Date of : 1955 ? Age: 66 ? Order #: [id number] ? Instrument Name: [id number] ? Procedure: ? Upper GI endoscopy Indications: [...] Procedure Code(s): ? --- Professional --- ? 06157, Esophagogastroduode noscopy, ? flexible, transoral; with biopsy, [...] Dysphagia, ? pharyngoesophageal phase CPT copyright 2020 [employer]. All rights reserved. The codes documented in this report are preliminary and upon mortgage funder review may be revised to meet current [...] Procedure) documented in this encounter Care Teams Salvage Mechanic Relationship Specialty Start Date End Date Violetta Sanford MD PCP - General 04/02/14 [address] [place] [address] documented as of this encounter
--- OUTSIDE RECORDS SUMMARY | 2022-06-16 12:21 | XMS_ITS | Encounter Summary ---
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 -The ENT triage nurse is available at [phone] -For urgent issues during evenings (5 PM - 7 AM) and weekends the ENT resident distribution spec can be reached through the main hospital pyridine operator at [phone] Follow Up: You will need to follow [...] Provider Department Dept Phone 02/10/2022 12:[address] [facility]FUSION, ROOM Hematology Oncology at [facility] Arrive at: [facility] door at end of hallway [phone] 02/16/2022 3:00 PM Shira Ramírez APRN Gastroenterology at [facility] Arrive at: [facility] 02/24/2022 12:00 PM STJ INFUSION, ROOM [facility]ematology [facility] at [facility] at [facility] of [facility] [phone] 03/10/2022 1:00 PM STJ INFUSION, ROOM Hematology Oncology at [facility] Arrive at: [facility] door at end of hallway [phone] 03/17/2022 9:45 AM Keerthi Mckenzie AUD; AUDIOLOGY, [facility] Audiology at [facility] Arrive at: [place] [facility] [place] [phone] 03/17/2022 10:40 AM Iraj Scott MD Otolaryngology at [facility] Arrive at: [facility] [facility] [place] [phone] 03/24/2022 12:00 PM STJ INFUSION, ROOM Hematology Oncology at [facility] door at end of hallway [phone] 04/07/2022 12:00 PM STJ INFUSION, ROOM Hematology Oncology at [facility] door at end of hallway [phone] 04/21/2022 11:30 AM Nicky Baez MD Hematology/Oncology at [facility] door at end of hallway [phone] 04/21/2022 12:00 PM STJ INFUSION, ROOM Hematology Oncology at [facility] Arrive at: [facility] door at end of hallway [phone] 06/21/2022 11:00 AM Shivam Rojas MD Neurology at [facility] Arrive at: [place] [phone] documented in this encounter Medications at Time [...] by 6 kit 3 08/07/2021 Sensor Kit [facility].(Non-Drug; Combo Route) route every 14 days. Use to continuously monitor blood glucose. Scan at least 4 times per day. FreeStyle Gilberto 2 Use to continuously 1 each 0 2 [place] [facility] monitor blood glucose. Scan at least 5 [...] G6 Sensor) Combo Route) route. Device Sensor, middle or intermediate school principal andtransmitter metoprolol succinate Take 1 tablet by mouth 90 tablet 1 04/2020 XL (Toprol-XL) 50 mg daily. Tablet Sustained Release 24 hr amLODIPine (Norvasc) Take 0.5 tablets by 90 tablet 3 2019 10 mg Tablet mouth daily. fluticasone INSTILL 2 SPRAYS INTO 0 09/06/2019 propionate (FLONASE) EACH NOSTRIL ONCE A 50 mcg/actuation DAY NEEDED [place], Suspension albuterol (PROVENTIL) Take 3 mLs by [...] 81 mg by mouth 0 tablet daily. ciprofloxacin-dexAMET Place 4 drops into the 7.5 mL 3 02/14/2022 Hasone (Ciprodex) left ear 3 times daily 0.3-0.1 % Drops, for 5 days. Suspension primidone (Mysoline) Take 1 tablet by mouth 120 tablet 3 10/202105/04/2022 50 mg Tablet 4 times daily. CellCept 250 mg TAKE 2 CAPSULES BY [...] PGY2 02/09/22 7:32 AM ENT Team Pager: [phone] documented in this encounter Miscellaneous Notes Op Note - Awa Frye MD - 02/09/2022 8:31 AM EDT [facility] Operative Note Patient Name: Leroy Torres : [id number] MR#: [id number] Case Date: 02/09/2022 Surgeon: Surgeon(s) and Role: [...] 06/21/2022 Office Visit Neurology yTler Rojas MD [facility] Neurology [phone] ([facility]) 06/29/2022 Appointment Cardiology Violetta Sanford M D [address] [place] [address] ( rk) 06/30/2022 Infusion Hematology and Oncology 07/14/2022 Infusion Hematology and Oncology 07/28/2022 Infusion Hematology and Oncology 08/11/2022 Infusion Hematology and Oncology 08/16/2022 Office Visit Audiology Mindy Moody AUD [facility] AUDIOLOGY DEPT [place], [place] [address] (Wo rk) 11/04/2022 Office Visit Rheumatology Dante Freedman PA [facility] RHEUMATOLOGY [place], [place] [address] (Wo rk) documented as of [...] Signature POC Glucose 102 65 - 199 [facility] MELI mg/dL [facility] LABORATORY Comment: Supplemental ranges: <140 mg/dL before meals <180 mg/dL all other times of the day Specimen Anatomical Collection Method Collection Time Receive d Time (Source) Location / / Volume Laterality Blood 02/09/2022 9:26 AM 9:26 EDT AM EDT Iraj Scott MD POINT OF CARE TEST ORDERABLE S Performing Organization Address City/State/[place] [address] Body Fluid Culture, Aerobic (02/09/2022 8:45 AM EDT) Component Value Ref Test Analysis Performed At [facility] gist Range Method Time Signature Body Fluid No growth [facility] Culture [facility] LABORATORY Gram Stain Cytocentrifuge Gram Stain performed JERE Neutrophils seen [place] No microorganisms seen. [facility] LABORATORY Specimen Anatomical Collection Method Collection Time Receive d Time (Source) Location / / Volume Laterality Middle Ear Fluid 02/09/2022 8:45 AM 02/09 EDT 10:00 AM EDT Comment: Left middle ear fluid. Aerobic Resulting Agency Comment Spec In Lab Archie Avila MD MICROBIOLOGY - GENERAL ORDER STEPHANIE Performing Organization Address City/State/ZIP Code Phon e Number [address] Phosphorus (02/09/2022 6:43 AM EDT) athologist Signature Phosphorus 3.2 2.5 - 4.5 [facility] MELI mg/dL [facility] LABORATORY Specimen Anatomical Collection Method Collection Time Receive d Time (Source) Location / / Volume Laterality Blood 02/09/2022 6:43 AM 2 7:04 EDT AM EDT Resulting Agency Comment Spec In Lab Iraj Scott MD CHEMISTRY ORDERABLES Performing Organization Address City/[facility]/ZIP Code Phon e Number [address] (ABNORMAL) Magnesium (02/09/2022 6:43 AM EDT) athologist Signature Magnesium 0.67 (L) 0.69 - 1.07 [facility] mmol/L [facility] LABORATORY Specimen Anatomical Collection Method Collection Time Receive d Time (Source) Location / / Volume Laterality Blood 02/09/2022 6:43 AM 2 7:04 EDT AM EDT Resulting Agency Comment Spec In Lab Iraj Scott MD CHEMISTRY ORDERABLES Performing Organization Address City/[facility] [place] [address] (ABNORMAL) Basic Metabolic Panel (non-fasting) (02/09/2022 6:43 AM EDT) athologist Signature Glucose Lvl 103 65 - 199 [facility] mg/dL [facility] Comment: Diabetes: >=200 mg/dL plus symp toms BUN 31 (H) 10 - 20 mg/dL [facility]OR[facility] Creatinine 2.49 (H) 0.80 - 1.50 mg/dL [facility] LABORATORY Sodium 141 135 - 145 mmol/L [facility]OR[facility] Potassium 4.2 3.5 - 5.0 mmol/L [facility] LABORATORY [...] [facility] LABORATORY CO2 22 22 - 31 mmol/L [facility] LABORATORY Anion Gap 11 5 - 15 mmol/L [facility]ORY Calcium 8.4 (L) 8.5 - 10.5 mg/dL [facility]OR[facility] Estimated GFR 27 (L) >=60 mL/min/1.73 m?? [place] [...] Organization Address City/State/[place] [address] POCT Glucose (02/09/2022 6:26 AM EDT) P athologist Signature POC Glucose 110 65 - 199 [facility] mg/dL [facility] Comment: Supplemental ranges: <140 mg/dL before meals <180 mg/dL all other times of the day Specimen Anatomical Collection Method Collection Time Receive d Time (Source) Location / / Volume Laterality Blood 02/09/2022 6:26 AM 2 6:26 EDT AM EDT Iraj Scott MD POINT OF CARE TEST ORDERABLE S Performing Organization Address City/State/[place] [address] documented in this encounter [...] 02/09/2022 acetaminophen (Tylenol) tablet 1,000 mg (COMPLETED) 0626 (Given - Provider: Loretta Carter RN) 1,000 [...] Routine documented in this encounter Care Teams Social Services Assistant Relationship Specialty Start Date End Date Violetta Sanford MD PCP - General 04/02/14 [address] [place] [address] documented as of this encounter
--- OUTSIDE RECORDS SUMMARY | 2022-06-16 12:21 | XMS_ITS | Encounter Summary ---
:1955 Author Organization [facility] [place] [address] Care Team Providers Name Role Phone Violetta Sanford MD Primary Care Provider Encounter Details Date Type Department Care Team Description 03/25/2022 Telephone Otolaryngology at [facility] [place] [address] Social History Tobacco Use Types Packs/Day Years [...] 06/21/2022 Office Visit Neurology Tyler Rojas MD [facility] [address] [place], [place] [phone] (Wo rk) 06/29/2022 Appointment Cardiology Violetta Sanford M D [address] [place] [address] (Wo rk) 06/30/2022 Infusion Hematology and Oncology 07/14/2022 Infusion Hematology and Oncology 07/28/2022 Infusion Hematology and Oncology 08/11/2022 Infusion Hematology and Oncology 08/16/2022 Office Visit Audiology Mindy Moody, WENDI [facility] AUDIOLOGY DEPT [place], [place] [address] (Wo rk) 11/04/2022 Office Visit Rheumatology Dante Freedman, PA [facility] RHEUMATOLOGY [place], [place] [address] (Wo rk) documented as of this encounter Visit Diagnoses Not on filedocumented in this encounter Care Teams Lease Attendant Relationship Specialty Start Date End Date Violetta Sanford MD PCP - General 04/02/14 [address] [place] [address] documented as of this encounter
--- OUTSIDE RECORDS SUMMARY | 2022-06-16 12:21 | XMS_ITS | Encounter Summary ---
:1955 Author Organization [place] [address] Care Team Providers Name Role Phone Violetta Sanford MD Primary Care Provider Encounter Details Date Type Department Care Team Description 04/19/2022 Hospital Encounter Gastroenterology at [facility] Singh, [place] [address] [place] [address] GASTROENTEROLOGY [place], [place] [address] Social History Tobacco Use [...] documented in this encounter Discharge Instructions Discharge InstructionsPutorti, Eunice P, RN - 04/19/2022 9:18 AM EDT Upper [...] the day after the procedure, use an vsvt-jfi-ikmztni spray to numb your throat. Sucking on [...] occurs, please contact your Doctor. Please call [phone] before 8pm Mon-Fri with problems, questions or concerns. If you call after 8pm or on weekends, call the Hospital at [phone] and ask to speak to the Process Area Supervisor paving contractor and the otr owner operator will contact that person for you. When should you call for help? Call 111 anytime you think you may need emergency [...] any problems. Where can you learn more? [facility] View your After Visit Summary and more online at [email or web address] If you would like to provide feedback about your hospital experience, please call the Office of Patient and Family Relations at . If you have received this After Visit Summary in error, please immediately return it in person to the department, or notify the [facility] Privacy Office by calling toll free at between the hours of 8AM and 5PM to arrange for our retrieval of the documents at no cost to you. Content Version: 12.2 ?? [phone] [employer]. Care instructions adapted under license by [facility]. If you have questions about a medical condition or this instruction, always ask your healthcare professional. [employer] disclaims any warranty or liability for your [...] Use to continuously 1 each 0 2 [place] Misc monitor blood glucose. Scan at least [...] 100 mcg Tablet Blood-Glucose Sensor by [facility]Non-Drug; 0 (Dexcom G6 Sensor) Combo Route) route. Device Sensor, telephone service adviser andtransmitter metoprolol succinate Take 1 tablet by mouth 90 tablet 1 04/2020 XL (Toprol-XL) 50 mg daily. Tablet Sustained Release 24 hr amLODIPine (Norvasc) Take 0.5 tablets by 90 tablet 3 2019 10 mg Tablet mouth daily. fluticasone INSTILL 2 SPRAYS INTO 0 09/06/2019 propionate (FLONASE) EACH NOSTRIL ONCE A 50 mcg/actuation DAY NEEDED [place], Suspension albuterol (PROVENTIL) Take 3 mLs by [...] by 100 each 03/09/2017 disposable, 29 gauge [facility]Non-Drug; Combo x 1/2 Route) route 3 times [...] by 4 each 0 12/02/2015 Supply [facility]Non-Drug; Combo MiscIndications: S/P Route) route daily. bilateral [...] COPD (chronic obstructive pulmonary disease) J44.9 ??? [facility] current use of immunosuppressive drug Z79.899 ??? [...] Rojas MD [facility] Neurology [place], [place] [phone] (Wo rk) 06/29/2022 Appointment Cardiology Violetta Sanford M D [address] [place] [address] (Wo rk) 06/30/2022 Infusion Hematology and Oncology 07/14/2022 Infusion Hematology and Oncology 07/28/2022 Infusion Hematology and Oncology 08/11/2022 Infusion Hematology and Oncology 08/16/2022 Office Visit Audiology Mindy Moody AUD [facility] AUDIOLOGY DEPT [place], [place] [address] (Wo rk) 11/04/2022 Office Visit Rheumatology Dante Freedman PA [facility] RHEUMATOLOGY [place], [place] [address] (Wo rk) documented as [...] 9:14 AM 9:14 EDT AM EDT Narrative [facility] - 04/19/2022 9:14 AM EDT Specimen requisition ordered. ??Separate Pathology report to follow Kimo Singh MD PATHOLOGY/CYTOLOGY ORDERABLE S Performing Organization Address City/[facility] [place] [address] Specimen to Pathology (04/19/2022 9:14 AM EDT) Specimen Anatomical Collection Method Collection Time Receive d Time (Source) Location / / Volume Laterality AP Specimen 04/19/2022 9:14 AM 2 9:14 EDT AM EDT Narrative [facility] - 04/19/2022 9:14 AM EDT Specimen requisition ordered. ??Separate Pathology report to follow Kimo Singh MD PATHOLOGY/CYTOLOGY ORDERABLE S Performing Organization Address City/[facility] [place] [address] Specimen to Pathology (04/19/2022 9:14 AM EDT) Specimen Anatomical Collection Method Collection Time Receive d Time (Source) Location / / Volume Laterality AP Specimen 04/19/2022 9:14 AM 2 9:14 EDT AM EDT Narrative [facility] OR - 04/19/2022 9:14 AM EDT Specimen requisition ordered. ??Separate Pathology report to follow Kimo Singh MD PATHOLOGY/CYTOLOGY ORDERABLE S Performing Organization Address City/[facility]/ZIP Code Phon e Number [address] Specimen to Pathology (04/19/2022 9:14 AM EDT) Specimen Anatomical Collection Method Collection Time Receive d Time (Source) Location / / Volume Laterality AP Specimen 04/19/2022 9:14 AM 2 9:14 EDT AM EDT Narrative [facility] - 04/19/2022 9:14 AM EDT Specimen requisition ordered. ??Separate Pathology report to follow Kimo Singh MD PATHOLOGY/CYTOLOGY ORDERABLE S Performing Organization Address City/[facility]/[place]IP [place] [address] Surgical Pathology Report (04/19/2022 8:57 AM EDT) Component Value Ref Test Analysis Performed At [facility] Range Method Time Signature Surgical [id number] ? Location: 4T; EA06; A [facility] Report The signing pathologist has (i) examined the relevant preparation(s) for the [facility] specimen(s) and (ii) rendered or confirmed [...] Jaclyn Verified: ??04/26/2022 13:43 ??Pathologist Performed at: ??-[facility] Dept. of Pathology, [place], [place] DISCUSSION A, C - ??Yeast and [...] Organization Address City/State/[place]IP [place] [address] UPPER GI ENDOSCOPY (04/19/2022 8:39 AM EDT) Component Value Ref Test Analysis Performed Pathologis t Range Method Time At Signature UPPER GI [facility] PROVATION ENDOSCOPY Endoscopy Procedure Date: 04/19/2022 8:39 AM ? Patient Name: Leroy Torres ? Date of : 1955 ? Age: 66 ? Order #: [id number] ? Instrument Name: [id number] ? Procedure: ? Upper GI endoscopy Indications: ? Esophageal dysphagia Providers: ? Julia Acevedo, ? Alejo Fleming RN, Am in Memar Referring : ?Violetta Sanford MD Medicines: ? Monitored Anesthesia [...] cluding, ? but not limited to, mario ng, ? perforation, infection, mi ssing a ? [...] fluc onazole. ? - Discharge patient to [facility] e. ? - Resume previous diet. ? - Continue present medicat ions. ? Procedure Code(s): ? --- Professional --- ? 08247, Esophagogastroduode noscopy, ? flexible, transoral; with biopsy, [...] Dysphagia, ? pharyngoesophageal phase CPT copyright 2020 [employer]. All rights reserved. The codes documented in this report are preliminary and upon fisher reef net review may be revised to meet current [...] Procedure) documented in this encounter Care Teams Sew Out Operator Relationship Specialty Start Date End Date Violetta Sanford MD PCP - General 04/02/14 [address] [place] [address] documented as of this encounter
--- OUTSIDE RECORDS SUMMARY | 2022-06-16 12:21 | XMS_ITS | Encounter Summary ---
:1955 Author Organization [facility] [place] [place] [address] Care Team Providers Name Role Phone Violetta Sanford MD Primary Care Provider Reason for Visit Reason Comments Injections Aranesp Treatment/Therapy Plan Authorization (Routine) - Authorized Specialty Diagnoses / Procedures Referred By Contact Refer red To Contact Hematology and Diagnoses CKD (chronic kidney disease) stage 4, GFR 15-29 ml/min Nicky Baez Elizabeth Oncology Procedures MD James NUR MD [address] HEMATOLOGY/ONCOLOGY [place], [place] [address]PT. [id number] [place] [id number] Referral ID Status Reason Start Date Expiration Date Visits V isits Requested Authorized [id number] Authorized 10/08/2020 07/24/2023 99 99 Encounter Details Date Type Department Care Team Description 03/24/2022 Infusion Hematology Oncology at [facility] of chronic renal [facility] failure, stage 4 (severe) [address] [place], [place] [phone] Social History Tobacco Use [...] documented in this encounter Patient Instructions Patient InstructionsJuamna Saab RN - 03/24/2022 12:00 PM EDT Your next lab appointment will be on April 21 at 10:30am prior to your appointment with Dr. Baez at 11:30. documented in this encounter Progress Notes Jumana Saab RN - 03/24/2022 12:00 PM EDT .INFUSION THERAPY ADMINISTRATION NOTES DIAGNOSIS: Iron Deficiency/CKD REASON FOR VISIT: [facility] Reuben offers no complaints. OBJECTIVE LAB DATA: [...] height, weight and BSA by Jumana Saab, RN and [facility]. REACTIONS (DESCRIPTION, TIME, INTERVENTION AND EFFECTIVENESS) none ASSESSMENT Reuben was awake, alert and tolerated treatment well. Aranesp given in [place]. PLAN Return to clinic in 2 weeks. documented in this encounter Plan of Treatment Upcoming Encounters Date Type Specialty Care Team Description 06/16/2022 Infusion Hematology and Oncology 06/21/2022 Office Visit Neurology Tyler Rojas MD [facility] Neurology [place], [place] [phone] (Wo rk) 06/29/2022 Appointment Cardiology Violetta Sanford M D [facility] [address] [place] [address] (Wo rk) 06/30/2022 Infusion Hematology and Oncology 07/14/2022 Infusion Hematology and Oncology 07/28/2022 Infusion Hematology and Oncology 08/11/2022 Infusion Hematology and Oncology 08/16/2022 Office Visit Audiology Mindy Moody AUD [facility] AUDIOLOGY DEPT [place], [place] [address] (Wo rk) 11/04/2022 Office Visit Rheumatology Dante Freedman PA [facility] RHEUMATOLOGY [place], [place] [address] (Wo rk) documented as of [...] (CKD) documented in this encounter Care Teams Brush Cleaner Relationship Specialty Start Date End Date Violetta Sanford MD PCP - General 04/02/14 [address] [place] [address] documented as of this encounter
--- OUTSIDE RECORDS SUMMARY | 2022-06-16 12:21 | XMS_ITS | Encounter Summary ---
:1955 Author Organization [facility] [place] [address] Care Team Providers Name Role Phone Violetta Sanford MD Primary Care Provider Reason for Visit Diagnostic Test (Routine) - Closed Specialty Diagnoses / Procedures Referred By Contact Refer red To Contact Radiology Diagnoses Dysphagia, unspecified type Shira Ramírez [facility] Rad Xray Procedures XR Fluoro Barium Swallow (Single Contrast) [facility] [place] [address] [place] [address] Referral ID Status Reason Start Date Expiration Date Visits V isits Requested Authorized [id number] Closed Specialty 04/01/2022 09/30/2023 1 1 Service Requested Encounter Details Date Type Department Care Team Description 04/01/2022 Hospital Encounter XRay at [facility] [place]bi, Dysphagia, [address] [place] [address] Dr Shira Zurita APRN unspecified type [facility] [phone] Center [phone] [place] [address] Social History Tobacco Use Types Packs/Day Years [...] Use to continuously 1 each 0 2 [place] Misc monitor blood glucose. Scan at least [...] B-12) 100 mcg Tablet Blood-Glucose Sensor by [facility]Non-Drug; 0 (Dexcom G6 Sensor) Combo Route) route. Device Sensor, hoe worker andtransmitter metoprolol succinate Take 1 tablet by mouth 90 tablet 1 04/2020 XL (Toprol-XL) 50 mg daily. Tablet Sustained Release 24 hr amLODIPine (Norvasc) Take 0.5 tablets by 90 tablet 3 2019 10 mg Tablet mouth daily. fluticasone INSTILL 2 SPRAYS INTO 0 09/06/2019 propionate (FLONASE) EACH NOSTRIL ONCE A 50 mcg/actuation DAY NEEDED [place], Suspension albuterol (PROVENTIL) Take 3 mLs by [...] by 100 each 03/09/2017 disposable, 29 gauge [facility]Non-Drug; Combo x 1/2 Route) route 3 times NeedleIndications: daily. Type 2 diabetes mellitus with complication, with long-term current use of insulin atorvastatin Take 1 tablet by mouth 90 tablet 02/03/2017 (LIPITOR) 20 mg daily. Tablet folic [...] Devices by 4 each 0 12/02/2015 Supply [facility]Non-Drug; Combo MiscIndications: S/P Route) route [...] times daily. documented as of this encounter Plan of Treatment Upcoming Encounters Date Type Specialty Care Team Description 06/16/2022 Infusion Hematology and Oncology 06/21/2022 Office Visit Neurology Tyler Rojas MD [facility] Neurology [place], [place] [phone] ( rk) 06/29/2022 Appointment Cardiology Violetta Sanford M D [address] [place] [address] ( rk) 06/30/2022 Infusion Hematology and Oncology 07/14/2022 Infusion Hematology and Oncology 07/28/2022 Infusion Hematology and Oncology 08/11/2022 Infusion Hematology and Oncology 08/16/2022 Office Visit Audiology Mindy Moody, WENDI [facility] AUDIOLOGY DEPT [place], [place] [address] (Wo rk) 11/04/2022 Office Visit Rheumatology Dante Freedman PA [facility] RHEUMATOLOGY [place], [place] [address] (Wo rk) Scheduled Orders Name [...] who have questions please contact the health care provider that requested your imaging first. ? Narrative 04/01/2022 10:25 AM EDT EXAMINATION: XR FLUORO BARIUM SWALLOW (SINGLE CONTRAST) CLINICAL HISTORY: ?achalasia TECHNIQUE: Formal barium swallow examination with t imed component were unable to be performed due to patient mobility limita tions. Single contrast esophagram and a semisupine angle was performed. ??Fluoro scopic spot films were obtained. Fluoro time: 0.82 minutes COMPARISON: None FINDINGS: Certified Hyperbaric Technologist: The visualized lungs and cardiomediastin al contours [...] Fluoro time: 0.82 minutes COMPARISON: None FINDINGS: Certified Hyperbaric Technologist: The visualized lungs and cardiomediastin al contours [...] ho have questions please contact the health care provider that requested your imaging first. Shira Ramírez [facility] FLUORO ORDERABLES documented in this encounter [...] Routine documented in this encounter Care Teams Acute Care Physician Relationship Specialty Start Date End Date Violetta Sanford MD PCP - General 04/02/14 [address] [place] [address] documented as of this encounter
--- OUTSIDE RECORDS SUMMARY | 2022-06-16 12:21 | XMS_ITS | Encounter Summary ---
:1955 Author Organization [facility] Address [place] [id number] Care Team Providers Name Role Phone Violetta Sanford MD Primary Care Provider Encounter Details Date Type Department Care Team Description 02/09/2022 Surgery Main Operating Room Archie Avila MD MYRINGOTOMY, INSERTION [facility] OF TUBE (WRVU 2.01) [facility] [place]ARYNG[place] [address] [place] [address] [phone] Social History Tobacco Use Types Packs/Day Years [...] documented in this encounter Discharge Instructions Patient InstructionsAaw Frye MD - 02/09/2022 9:22 AM EDT [...] -You can reach the ENT clinic at [phone] for appointment questions. -The ENT triage nurse is available at [phone] -For urgent issues during evenings (5 PM - 7 AM) and weekends the ENT resident post adoption coordinator can be reached through the main hospital bonding machine operator at [phone] Follow Up: You will need to follow [...] PM STJ INFUSION, ROOM Hematology Oncology at [facility] Arrive at: [facility] door at end of hallway [phone] 02/16/2022 3:00 PM Shira Ramírez APRN Gastroenterology at [facility] Arrive at: Employment Case Manager Area 4L [phone] 02/24/2022 12:00 PM STJ INFUSION, ROOM Hematology Oncology at [facility] door at end of hallway [phone] 03/10/2022 1:00 PM STJ INFUSION, ROOM Hematology Oncology at [facility] Arrive at: [facility] door at end of hallway [phone] 03/17/2022 9:45 AM Keerthi Mckenzie AUD; [facility] Audiology at [facility] Arrive at: Employment Case Manager Area [phone] 03/17/2022 10:40 AM Iraj Scott MD Otolaryngology at [facility] Arrive at: Employment Case Manager Area [phone] 03/24/2022 12:00 PM STJ INFUSION, ROOM Hematology Oncology at [facility]: [facility] door at end of hallway [phone] 04/07/2022 12:00 PM STJ INFUSION, ROOM Hematology Oncology at [facility] Arrive at: [facility] door at end of hallway [phone] 04/21/2022 11:30 AM Nicky Baez MD Hematology/Oncology at [facility] Arrive at: [facility] door at end of hallway [phone] 04/21/2022 12:00 PM STJ INFUSION, ROOM Hematology Oncology at [facility] Arrive at: [facility] door at end of hallway [phone] 06/21/2022 11:00 AM Shivam Rojas MD Neurology at [facility] Arrive at: Employment Case Manager Area [phone] documented in this encounter Medications at Time [...] Use to continuously 1 each 0 2 [place] Misc monitor blood glucose. Scan at least [...] mcg Tablet Blood-Glucose Sensor by [facility]Non-Drug; 0 (Dexcom G6 Sensor) Combo Route) route. Device Sensor, cloth printer andtransmitter metoprolol succinate Take 1 tablet by mouth 90 tablet 1 04/2020 XL (Toprol-XL) 50 mg daily. Tablet Sustained Release 24 hr amLODIPine (Norvasc) Take 0.5 tablets by 90 tablet 3 2019 10 mg Tablet mouth daily. fluticasone INSTILL 2 SPRAYS INTO 0 09/06/2019 propionate (FLONASE) EACH NOSTRIL ONCE A 50 mcg/actuation DAY NEEDED [place], Suspension albuterol (PROVENTIL) Take 3 mLs by [...] 4 each 0 12/02/2015 Supply [facility]Non-Drug; Combo MiscIndications: S/P Route) route daily. bilateral [...] PGY2 02/09/22 7:32 AM ENT Team Pager: [phone] documented in this encounter Miscellaneous Notes Op Note - Awa Frye MD - 02/09/2022 8:31 AM EDT [facility] Operative Note Patient Name: Leroy Torres : [id number] MR#: [id number] Case Date: 02/09/2022 Surgeon: Surgeon(s) and Role: [...] [facility] Neurology [place], [place] [phone] (Wo rk) 06/29/2022 Appointment Cardiology Violetta Sanford M D [address] [place] [address] (Wo rk) 06/30/2022 Infusion Hematology and Oncology 07/14/2022 Infusion Hematology and Oncology 07/28/2022 Infusion Hematology and Oncology 08/11/2022 Infusion Hematology and Oncology 08/16/2022 Office Visit Audiology Mindy Moody AUD [facility] AUDIOLOGY DEPT [place], [place] [address] (Wo rk) 11/04/2022 Office Visit Rheumatology Dante Freedman PA [facility] RHEUMATOLOGY [place], [place] [address] (Wo rk) documented as of [...] Signature POC Glucose 102 65 - 199 [facility] MELI mg/dL [facility] Comment: Supplemental ranges: <140 mg/dL before meals <180 mg/dL all other times of the day Specimen Anatomical Collection Method Collection Time Receive d Time (Source) Location / / Volume Laterality Blood 02/09/2022 9:26 AM 9:26 EDT AM EDT Iraj Scott MD POINT OF CARE TEST ORDERABLE S Performing Organization Address City/[facility]/ZIP [place] [address] Body Fluid Culture, Aerobic (02/09/2022 8:45 AM EDT) Component Value Ref Test Analysis [facility] Range Method Time Signature Body Fluid No growth [facility] Culture [facility] Gram Stain Cytocentrifuge Gram Stain performed JERE Neutrophils seen [place] No microorganisms seen. [facility] LABOR[facility]ORY Specimen Anatomical Collection Method Collection Time Receive d Time (Source) Location / / Volume Laterality Middle Ear Fluid 02/09/2022 8:45 AM 02/09 EDT 10:00 AM EDT Comment: Left middle ear fluid. Aerobic Resulting Agency Comment Spec In Lab Archie Avila MD MICROBIOLOGY - GENERAL ORDER STEPHANIE Performing Organization Address City/State/ZIP Code Phon e Number [address] Phosphorus (02/09/2022 6:43 AM EDT) athologist Signature Phosphorus 3.2 2.5 - 4.5 [facility]ELI mg/dL [facility] Specimen Anatomical Collection Method Collection Time Receive d Time (Source) Location / / Volume Laterality Blood 02/09/2022 6:43 AM 7:04 EDT AM EDT Resulting Agency Comment Spec In Lab Irja Scott MD CHEMISTRY ORDERABLES Performing Organization Address City/State/ZIP Code Phon e Number [address] (ABNORMAL) Magnesium (02/09/2022 6:43 AM EDT) athologist Signature Magnesium 0.67 (L) 0.69 - 1.07 [facility] mmol/L [facility] Specimen Anatomical Collection Method Collection Time Receive d Time (Source) Location / / Volume Laterality Blood 02/09/2022 6:43 AM 7:04 EDT AM EDT Resulting Agency Comment Spec In Lab Iraj Scott MD CHEMISTRY ORDERABLES Performing Organization Address City/[facility]/ZIP Code Phon e Number [address] (ABNORMAL) Basic Metabolic Panel (non-fasting) (02/09/2022 6:43 AM EDT) athologist Signature Glucose Lvl 103 65 - 199 [facility] mg/dL [facility] Comment: Diabetes: >=200 mg/dL plus symp toms BUN 31 (H) 10 - 20 mg/dL [facility] Creatinine 2.49 (H) 0.80 - 1.50 mg/dL [facility] Sodium 141 135 - 145 mmol/L [facility] Potassium 4.2 3.5 - 5.0 mmol/L [facility] Comment: Please note: ??Patients with WBC >100,00 0 may have falsely elevated Potassium levels. ??For accurate Potassium quantif ication in these patients send serum separator tube (gold top) for subsequent determinations. ??Contact the Clinical Chemistry Laboratory if there are any qu estions. Chloride 108 (H) 98 - 107 mmol/L [facility] CO2 22 22 - 31 mmol/L [facility] Anion Gap 11 5 - 15 mmol/L [facility] Calcium 8.4 (L) 8.5 - 10.5 mg/dL [facility] Estimated GFR 27 (L) >=60 mL/min/1.73 m?? [facility] [...] Address City/State/[place] [address] POCT Glucose (02/09/2022 6:26 AM EDT) P athologist Signature POC Glucose 110 65 - 199 [facility] mg/dL [facility] Comment: Supplemental ranges: <140 mg/dL before meals <180 mg/dL all other times of the day Specimen Anatomical Collection Method Collection Time Receive d Time (Source) Location / / Volume Laterality Blood 02/09/2022 6:26 AM 2 6:26 EDT AM EDT Iraj Scott MD POINT OF CARE TEST ORDERABLE S Performing Organization Address City/State/ZIP [place] [address] documented in this encounter [...] Routine documented in this encounter Care Teams Director Geophysical Laboratory Relationship Specialty Start Date End Date Violetta Sanford MD PCP - General 04/02/14 [address] [place] [address] documented as of this encounter
--- OUTSIDE RECORDS SUMMARY | 2022-06-16 12:21 | XMS_ITS | Encounter Summary ---
:1955 Author Organization [facility] [place] [address] Care Team Providers Name Role Phone Violetta Sanford MD Primary Care Provider Encounter Details Date Type Department Care Team Description 03/05/2022 External Results [place] [address] Social History Tobacco Use Types Packs/Day [...] Rojas MD [facility] Neurology [place], [place] [phone] (Wo rk) 06/29/2022 Appointment Cardiology Violetta Sanford M D [address] [address] [address] [place], [place] [address] (Oscar rk) 06/30/2022 Infusion Hematology and Oncology 07/14/2022 Infusion Hematology and Oncology 07/28/2022 Infusion Hematology and Oncology 08/11/2022 Infusion Hematology and Oncology 08/16/2022 Office Visit Audiology Mindy Moody AUD [facility] AUDIOLOGY DEPT [place], [place] [address] (Wo rk) 11/04/2022 Office Visit Rheumatology Dante Freedman PA [facility] RHEUMATOLOGY [place], [place] [address] (Wo rk) documented as [...] no t available. Historical Provider CHEMISTRY ORDERABLES documented in this encounter Visit Diagnoses Not on filedocumented in this encounter Care Teams Title Processor Relationship Specialty Start Date End Date Violetta Sanford MD PCP - General 04/02/14 [address] [place] [address] documented as of this encounter
--- OUTSIDE RECORDS SUMMARY | 2022-06-16 12:21 | XMS_ITS | Encounter Summary ---
:1955 Author Organization [facility] [place] [address] Care Team Providers Name Role Phone Viloetta Sanford MD Primary Care Provider Reason for Visit Reason Comments Injections Aranesp Treatment/Therapy Plan Authorization (Routine) - Authorized Specialty Diagnoses / Procedures Referred By Contact Refer red To Contact Hematology and Diagnoses CKD (chronic kidney disease) stage 4, GFR 15-29 ml/min Nicky Baez Elizabeth Oncology Procedures MD James NUR MD [address] HEMATOLOGY/ONCOLOGY [place], [place] [address]PT. [id number] [place] [id number] Referral ID Status Reason Start Date Expiration Date Visits V isits Requested Authorized [id number] Authorized 10/08/2020 07/24/2023 99 99 Encounter Details Date Type Department Care Team Description 04/07/2022 Infusion Hematology Oncology at [facility] of chronic renal [facility] failure, stage 4 (severe) [address] [place], [place] [phone] Social History Tobacco Use [...] NOTES DIAGNOSIS: Iron Deficiency/CKD REASON FOR VISIT: Kash SUBJECTIVE Reuben offers no complaints. OBJECTIVE LAB [...] and BSA by Jumana Saab RN and [facility]. REACTIONS (DESCRIPTION, TIME, INTERVENTION AND EFFECTIVENESS) none ASSESSMENT Reuben was awake, alert and tolerated treatment well. Aranesp given in [place]. PLAN Return to clinic in 2 weeks. documented in this encounter Plan of Treatment Upcoming Encounters Date Type Specialty Care Team Description 06/16/2022 Infusion Hematology and Oncology 06/21/2022 Office Visit Neurology Tyler Rojas MD [facility] Medical [facility] Neurology [place], [place] [phone] (Wo rk) 06/29/2022 Appointment Cardiology Violetta Sanford M D [address] [place], [place] [address] (Wo rk) 06/30/2022 Infusion Hematology and Oncology 07/14/2022 Infusion Hematology and Oncology 07/28/2022 Infusion Hematology and Oncology 08/11/2022 Infusion Hematology and Oncology 08/16/2022 Office Visit Audiology Mindy Moody AUD [facility] AUDIOLOGY DEPT [place], [place] [address] (Wo rk) 11/04/2022 Office Visit Rheumatology Dante Freedman PA [facility] RHEUMATOLOGY [place], [place] [address] (Wo rk) documented as of [...] (CKD) documented in this encounter Care Teams Membership Manager Relationship Specialty Start Date End Date Violetta Sanford MD PCP - General 04/02/14 [address] [place], [place] [address] documented as of this encounter
--- OUTSIDE RECORDS SUMMARY | 2022-06-16 12:22 | XMS_ITS | Encounter Summary ---
:1955 Author Organization [facility] [place] [address] Care Team Providers Name Role Phone Violetta Sanford MD Primary Care Provider Reason for Visit Reason Onset Date Comments Pump/sensor 02/08/2022 Encounter Details Date Type Department Care Team Description 02/08/2022 Telephone Endocrinology at [facility] Leny Kohler Pump/[place] [address] Social History Tobacco Use Types Packs/Day Years [...] 7:59 AM EDT Documentation request received from [facility]. 01/21/22 office notes routed Confirmed 02/08 Fax number: [phone] documented in this encounter Plan of Treatment Upcoming Encounters Date Type Specialty Care Team Description 06/16/2022 Infusion Hematology and Oncology 06/21/2022 Office Visit Neurology Tyler Rojas MD [facility] er Dr [address] [place], [place] [address] (Wo rk) 06/29/2022 Appointment Cardiology Violetta Sanford M D [address] [place], [place] [phone] (Wo rk) 06/30/2022 Infusion Hematology and Oncology 07/14/2022 Infusion Hematology and Oncology 07/28/2022 Infusion Hematology and Oncology 08/11/2022 Infusion Hematology and Oncology 08/16/2022 Office Visit Audiology Mindy Moody AUD [facility] AUDIOLOGY [place], [place] [address] (Wo rk) 11/04/2022 Office Visit Rheumatology Dante Freedman, DA [facility] RHEUMATOLOGY [place], [place] [address] (Wo rk) documented as of this encounter Visit Diagnoses Not on filedocumented in this encounter Care Teams Multimedia Production Assistant Relationship Specialty Start Date End Date Violetta Sanford MD PCP - General 04/02/14 [address] [place], [place] [address] documented as of this encounter
--- OUTSIDE RECORDS SUMMARY | 2022-06-16 12:22 | XMS_ITS | Encounter Summary ---
:1955 Author Organization [facility] [place] [address] Care Team Providers Name Role Phone Violetta Sanford MD Primary Care Provider Encounter Details Date Type Department Care Team Description 12/09/2021 Notes Only Otolaryngology at [facility] [place] [address] Social History Tobacco Use Types Packs/Day Years [...] CT Temporal Bone wo Contrast completed at [facility]. NO PA needed for Medicare. [place] follows all medicare guidelines; NO pre certification is needed. Information faxed to [facility] radiology as per patient request. documented in this encounter Plan of Treatment Upcoming Encounters Date Type Specialty Care Team Description 06/16/2022 Infusion Hematology and Oncology 06/21/2022 Office Visit Neurology Tyler Rojas MD [facility] Dr [address] [place], [place] [phone] (Wo rk) 06/29/2022 Appointment Cardiology Violetta Sanford M D [address] [place], [place] [phone] ([facility]) 06/30/2022 Infusion Hematology and Oncology 07/14/2022 Infusion Hematology and Oncology 07/28/2022 Infusion Hematology and Oncology 08/11/2022 Infusion Hematology and Oncology 08/16/2022 Office Visit Audiology Mindy Moody, WENDI [facility] AUDIOLOGY [place], [place] [address] (Wo rk) 11/04/2022 Office Visit Rheumatology Dante Freedman, PA [facility] RHEUMATOLOGY [place], [place] [address] ( rk) documented as of this encounter Visit Diagnoses Not on filedocumented in this encounter Care Teams Dental Office Receptionist Relationship Specialty Start Date End Date Violetta Sanford MD PCP - General 04/02/14 [address] [place], [place] [phone] documented as of this encounter
--- OUTSIDE RECORDS SUMMARY | 2022-06-16 12:22 | XMS_ITS | Encounter Summary ---
:1955 Author Organization [facility] [place] [address] Care Team Providers Name Role Phone Violetta Sanford MD Primary Care Provider Encounter Details Date Type Department Care Team Description 12/23/2021 Telephone Otolaryngology at [facility] [place] [address] Social History Tobacco Use Types Packs/Day [...] Rojas MD [facility] Dr [address] [place], [place] [address] (Wo rk) 06/29/2022 Appointment Cardiology Violetta Sanford M D [address] [place], [place] [phone] ( rk) 06/30/2022 Infusion Hematology and Oncology 07/14/2022 Infusion Hematology and Oncology 07/28/2022 Infusion Hematology and Oncology 08/11/2022 Infusion Hematology and Oncology 08/16/2022 Office Visit Audiology Mindy Moody AUD [facility] AUDIOLOGY [place], [place] [address] ( rk) 11/04/2022 Office Visit Rheumatology Dante Freedman PA [facility] RHEUMATOLOGY [place], [place] [address] ([facility]) documented as of this encounter Visit Diagnoses Not on filedocumented in this encounter Care Teams Toll Bridge Attendant Relationship Specialty Start Date End Date Violetta Sanford MD PCP - General 04/02/14 [address] [place], [place] [address] documented as of this encounter
--- OUTSIDE RECORDS SUMMARY | 2022-06-16 12:22 | XMS_ITS | Encounter Summary ---
:1955 Author Organization [facility] [place] [address] Care Team Providers Name Role Phone Violetta Sanford MD Primary Care Provider Encounter Details Date Type Department Care Team Description 01/12/2022 Ancillary Procedure Radiology Library at Violetta Sanford MD [facility] [address] [phone] (Oscar escobedo) Social History Tobacco Use Types [...] Rojas MD [facility] Neurology [place], [place] [phone] (Wo rk) 06/29/2022 Appointment Cardiology Violetta Sanford M D [address] [phone] (Wo rk) 06/30/2022 Infusion Hematology and Oncology 07/14/2022 Infusion Hematology and Oncology 07/28/2022 Infusion Hematology and Oncology 08/11/2022 Infusion Hematology and Oncology 08/16/2022 Office Visit Audiology Mindy Moody AUD ONE [facility] AUDIOLOGY DEPT [place], [place] [address] (Wo rk) 11/04/2022 Office Visit Rheumatology Dante Freedman PA [facility] RHEUMATOLOGY [place], [place] [address] (Wo rk) documented as of [...] Time / Laterality Volume Narrative CAITLIN - 01/14/2022 12:47 PM EDT This exam is auto-finalizing. It's purpo se is for storage only. Violetta Sanford MD IMG FILM LIBRARY ORDERABLES Performing Organization Address City/State/ZIP Code Phon e Number [place], [place] documented in this encounter Visit Diagnoses Not on filedocumented in this encounter Care Teams Client Service And Consulting Manager Relationship Specialty Start Date End Date Violetta Sanford MD PCP - General 04/02/14 [address] [place] [address] documented as of this encounter
--- OUTSIDE RECORDS SUMMARY | 2022-06-16 12:22 | XMS_ITS | Encounter Summary ---
:1955 Author Organization [facility] [place] [address] Care Team Providers Name Role Phone Violetta Sanford MD Primary Care Provider Reason for Visit Reason Comments IV Medication Venofer Injections Aranesp Treatment/Therapy Plan Authorization (Routine) - Pending Review Specialty Diagnoses / Procedures Referred By Contact Refer red To Contact Diagnoses CKD (chronic kidney disease) stage 4, GFR 15-29 ml/min Nicky Baez MD [facility] D R HEMATOLOGY/[place] [address] Referral ID Status Reason Start Date Expiration Date Visits V isits Requested Authorized [id number] Pending 11/10/2021 11/10/2022 99 99 Review Encounter Details Date Type Department Care Team Description 12/16/2021 Infusion Hematology Oncology at [facility] of chronic renal [facility] failure, stage 4 (severe) [address] [place] [phone] Social History Tobacco Use Types [...] weightand BSA by Lindsay Lerma, SHEILA and [facility]. REACTIONS (DESCRIPTION, TIME, INTERVENTION AND EFFECTIVENESS) [...] Tyler Rojas MD [facility] Neurology [place], [place] [phone] (Oscar escobedo) 06/29/2022 Appointment Cardiology Violetta Sanford M D [address] [place] [address] (Oscar escobedo) 06/30/2022 Infusion Hematology and Oncology 07/14/2022 Infusion Hematology and Oncology 07/28/2022 Infusion Hematology and Oncology 08/11/2022 Infusion Hematology and Oncology 08/16/2022 Office Visit Audiology Mindy Moody AUD ONE [facility] AUDIOLOGY DEPT [place], [place] [address] (Wo rk) 11/04/2022 Office Visit Rheumatology Dante Freedman PA [facility] RHEUMATOLOGY [place], [place] [address] (Wo rk) documented as of [...] 200 mg, Intravenous, ONCE, 1 dose, On Tue12/16/21 at 1245, Administer over 5 Minutes, Patients should be closely monitored for signs of hypersensitivity during and for at least 30 min after each administration. The observation period is not needed for patients who have demonstrated tolerability. documented in this encounter Care Teams Bank Cashier Relationship Specialty Start Date End Date Violetta Sanford MD PCP - General 04/02/14 [address] [place] [address] documented as of this encounter
--- OUTSIDE RECORDS SUMMARY | 2022-06-16 12:22 | XMS_ITS | Encounter Summary ---
:1955 Author Organization [facility] [place] [address] Care Team Providers Name Role Phone Violetta Sanford MD Primary Care Provider Encounter Details Date Type Department Care Team Description 01/27/2022 Office Visit Audiology at [facility] Alejandra Barnes Mixed conductive and sensori neural hearing loss of left ear with restricted hearing of right ear; [facility] WENDI [place] Sensorineural hearing loss (SNHL) of rig ht ear with restricted hearing of [place] [address] AUDIOLOGY DEPT [phone] [place], [place] [address] Social History Tobacco Use Types [...] regarding history, impressions, and recommendations. Antonio Dunham, [facility] [place] [address] documented in this encounter Plan of Treatment Upcoming Encounters Date Type Specialty Care Team Description 06/16/2022 Infusion Hematology and Oncology 06/21/2022 Office Visit Neurology Tyler Rojas MD [facility] Neurology [place], [place] [phone] (Wo rk) 06/29/2022 Appointment Cardiology Violetta Sanford M D [address] [place] [address] (Wo rk) 06/30/2022 Infusion Hematology and Oncology 07/14/2022 Infusion Hematology and Oncology 07/28/2022 Infusion Hematology and Oncology 08/11/2022 Infusion Hematology and Oncology 08/16/2022 Office Visit Audiology Mindy Moody AUD [facility] AUDIOLOGY DEPT [place], [place] [address] (Wo rk) 11/04/2022 Office Visit Rheumatology Dante Freedman PA [facility] RHEUMATOLOGY [place], [place] [address] (Wo rk) documented as of [...] ear documented in this encounter Care Teams Assembler Adjuster Relationship Specialty Start Date End Date Violetta Sanford MD PCP - General 04/02/14 [address] [place] [address] documented as of this encounter
--- OUTSIDE RECORDS SUMMARY | 2022-06-16 12:22 | XMS_ITS | Encounter Summary ---
:1955 Author Organization [facility] [place] [address] Care Team Providers Name Role Phone Violetta Sanford MD Primary Care Provider Encounter Details Date Type Department Care Team Description 01/07/2022 Telephone Otolaryngology at [facility] [place] [address] Social History Tobacco Use Types Packs/Day [...] otitis media. Thank you, ? Ellyn Called patienet at [phone] - left generic voicemail for patient to callback Holding time: 01/14 at 9:20am with Dr. Scott documented in this encounter Plan of Treatment Upcoming Encounters Date Type Specialty Care Team Description 06/16/2022 Infusion Hematology and Oncology 06/21/2022 Office Visit Neurology Tyler Rojas MD [facility] Neurology [place], [place] [phone] (Wo rk) 06/29/2022 Appointment Cardiology Violetta Sanford M D [address] [place] [address] (Wo rk) 06/30/2022 Infusion Hematology and Oncology 07/14/2022 Infusion Hematology and Oncology 07/28/2022 Infusion Hematology and Oncology 08/11/2022 Infusion Hematology and Oncology 08/16/2022 Office Visit Audiology Mindy Moody AUD [facility] AUDIOLOGY DEPT [place], [place] [address] (Wo rk) 11/04/2022 Office Visit Rheumatology Dante Freedman PA [facility] RHEUMATOLOGY [place], [place] [address] (Wo rk) documented as of this encounter Visit Diagnoses Not on filedocumented in this encounter Care Teams Tube Coater Relationship Specialty Start Date End Date Violetta Sanford MD PCP - General 04/02/14 [address] [place], [place] [address] documented as of this encounter
--- OUTSIDE RECORDS SUMMARY | 2022-06-16 12:22 | XMS_ITS | Encounter Summary ---
:1955 Author Organization [facility] [place] [address] Care Team Providers Name Role Phone Violetta Sanford MD Primary Care Provider Encounter Details Date Type Department Care Team Description 02/01/2022 External Results [place] [address] Social History Tobacco Use Types Packs/Day [...] Tyler Rojas MD [facility] Neurology [place], [place] [phone] (Wo rk) 06/29/2022 Appointment Cardiology Violetta Sanford M D [address] [place] [address] [address] [place], [place] [address] (Oscar rk) 06/30/2022 Infusion Hematology and Oncology 07/14/2022 Infusion Hematology and Oncology 07/28/2022 Infusion Hematology and Oncology 08/11/2022 Infusion Hematology and Oncology 08/16/2022 Office Visit Audiology Mindy Moody AUD [facility] AUDIOLOGY DEPT [place], [place] [address] (Wo rk) 11/04/2022 Office Visit Rheumatology Dante Freedman PA [facility] RHEUMATOLOGY [place], [place] [address] (Wo rk) documented as of [...] on filedocumented in this encounter Care Teams Vertical Roll Operator Relationship Specialty Start Date End Date Violetta Sanford MD PCP - General 04/02/14 [address] [place] [address] documented as of this encounter
--- OUTSIDE RECORDS SUMMARY | 2022-06-16 12:22 | XMS_ITS | Encounter Summary ---
:1955 Author Organization [facility] [place] [address] Care Team Providers Name Role Phone Violetta Sanford MD Primary Care Provider Encounter Details Date Type Department Care Team Description 02/04/2022 Telephone Otolaryngology at [facility] [place] [address] Social History Tobacco Use Types Packs/Day [...] MD [facility] Dr [address]ah [place], [place] [phone] (Wo rk) 06/29/2022 Appointment Cardiology Violetta Sanford M D [address] [place], [place] [phone] ([facility]) 06/30/2022 Infusion Hematology and Oncology 07/14/2022 Infusion Hematology and Oncology 07/28/2022 Infusion Hematology and Oncology 08/11/2022 Infusion Hematology and Oncology 08/16/2022 Office Visit Audiology Mindy Moody, WENDI [facility] AUDIOLOGY [place], [place] [address] (Wo rk) 11/04/2022 Office Visit Rheumatology Dante Freedman, DA [facility] RHEUMATOLOGY [place], [place] [address] ( rk) documented as of this encounter Visit Diagnoses Not on filedocumented in this encounter Care Teams Ladle Filler Relationship Specialty Start Date End Date Violetta Sanford MD PCP - General 04/02/14 [address] [place], [place] [phone] documented as of this encounter
--- OUTSIDE RECORDS SUMMARY | 2022-06-16 12:22 | XMS_ITS | Encounter Summary ---
:1955 Author Organization [facility] [place] [address] Care Team Providers Name Role Phone Violetta Sanford MD Primary Care Provider Reason for Visit Reason Comments Injections Aranesp Treatment/Therapy Plan Authorization (Routine) - Authorized Specialty Diagnoses / Procedures Referred By Contact Refer red To Contact Hematology and Diagnoses CKD (chronic kidney disease) stage 4, GFR 15-29 ml/min Nicky Baez Elizabeth Oncology Procedures MD James NUR MD [address] HEMATOLOGY/ONCOLOGY [place], [place] DEPT. [id number] [place] [address] Referral ID Status Reason Start Date Expiration Date Visits V isits Requested Authorized [id number] Authorized 10/08/2020 07/24/2023 99 99 Encounter Details Date Type Department Care Team Description 12/30/2021 Infusion Hematology Oncology at [facility] of chronic renal [facility] failure, stage 4 (severe) [address] [place], [place] [phone] Social History Tobacco Use [...] and BSA by Lindsay Lerma, SHEILA and [facility]. REACTIONS (DESCRIPTION, TIME, INTERVENTION AND EFFECTIVENESS) none ASSESSMENT Reuben was awake, alert and tolerated treatment well. Aranesp given in [place]. PLAN Return to clinic in 2 weeks. documented in this encounter Plan of Treatment Upcoming Encounters Date Type Specialty Care Team Description 06/16/2022 Infusion Hematology and Oncology 06/21/2022 Office Visit Neurology Tylre Rojas MD [facility] Neurology [place], [place] [phone] (Oscar escobedo) 06/29/2022 Appointment Cardiology Violetta Sanford M D [address] [place] [address] (Oscar escobedo) 06/30/2022 Infusion Hematology and Oncology 07/14/2022 Infusion Hematology and Oncology 07/28/2022 Infusion Hematology and Oncology 08/11/2022 Infusion Hematology and Oncology 08/16/2022 Office Visit Audiology Mindy Moody AUD [facility] AUDIOLOGY [place], [place] [address] (Wo rk) 11/04/2022 Office Visit Rheumatology Dante Freedman, DA [facility] RHEUMATOLOGY [place], [place] [address] (Wo rk) documented as of [...] (CKD) documented in this encounter Care Teams Terminal Computer Operator Relationship Specialty Start Date End Date Violetta Sanford MD PCP - General 04/02/14 [address] [place] [address] documented as of this encounter
--- OUTSIDE RECORDS SUMMARY | 2022-06-16 12:22 | XMS_ITS | Encounter Summary ---
:1955 Author Organization [facility] [place] [address] Care Team Providers Name Role Phone Violetta Sanford MD Primary Care Provider Reason for Visit Reason Onset Date Comments Other 11/25/2021 Needs cbc drawn Encounter Details Date Type Department Care Team Description 11/25/2021 Telephone Hematology/Oncology at Brittany Vera RN Other (Needs cbc drawn) [address] [phone] Social History Tobacco Use Types [...] needs blood work again today per Dr. Patelkereny him to return my call. documented in this encounter Plan of Treatment Upcoming Encounters Date Type Specialty Care Team Description 06/16/2022 Infusion Hematology and Oncology 06/21/2022 Office Visit Neurology Tyler Rojas MD [facility] Dr [address] [place], [place] [phone] (Wo rk) 06/29/2022 Appointment Cardiology Violetta Sanford M D [address] [place], [place] [id number] (Wo rk) 06/30/2022 Infusion Hematology and Oncology 07/14/2022 Infusion Hematology and Oncology 07/28/2022 Infusion Hematology and Oncology 08/11/2022 Infusion Hematology and Oncology 08/16/2022 Office Visit Audiology Mindy Moody, WENDI [facility] AUDIOLOGY [place], [place] [address] (Wo rk) 11/04/2022 Office Visit Rheumatology Dante Freedman, PA [facility] RHEUMATOLOGY [place], [place] [address] (Wo rk) documented as of this encounter Visit Diagnoses Not on filedocumented in this encounter Care Teams Administrative Services Director Relationship Specialty Start Date End Date Vioeltta Sanford MD PCP - General 04/02/14 [address] [place], [place] [address] documented as of this encounter
--- OUTSIDE RECORDS SUMMARY | 2022-06-16 12:22 | XMS_ITS | Encounter Summary ---
:1955 Author Organization [facility] [place] [address] Care Team Providers Name Role Phone Violetta Sanford MD Primary Care Provider Reason for Visit Reason Comments Fever Headache Auth/Cert Specialty Diagnoses / Procedures Referred By Contact Refer red To Contact Diagnoses Otitis externa [place] [address] Referral ID Status Reason Start Date Expiration Date Visits Requ ested Visits Authorized [id number] 1 1 Encounter Details Date Type Department Care Team Description 01/06/2022 - Hospital Encounter 3 Hallie Doll [place] [facility] [place] [address] Otitis externa 01/07/2022 [facility] [place] [address] (Primary Dx) [place] [address] [place] [address] Social History Tobacco Use Types Packs/Day Years [...] and time: 01/07/2022 3:12 PM Attending Physician: MD DEEPAK SheetsP Discharging Physician: MD DEEPAK SheetsP Follow-up Recommendations for Providers: 1. Losartan was [...] 1 Post-Op 4-6 Weeks 01/28/22 MATTHIEU - x MATTHIEU-AP AUD 45 PRIOR to appt [...] Prophylactic immunotherapy ??? Persistent proteinuria ??? 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 Recent Labs 01/06/22 181 CALCIUM 9.4 No results for input(s): INR, PT in the last 168 hours. Micro: Microbiology Results (Last 30 days) Procedure Component Value Units Date/Time Ear culture Middle Ear Fluid; Ear, Left [[id number]] (Abnormal) Collected: 01/06/222149 Lab Status: Preliminary result Specimen: Middle Ear Fluid from Ear, Left Updated: 01/06/227 Gram Stain -- Moderate Neutrophils seen Rare Gram Positive Cocci seen Rare Gram Positive Rods seen COVID-19 PCR [[id number]] Collected: 01/06/222149 Lab Status: Final result Specimen: [...] diagnosis of COVID-19 is performed using the [employer] COVID-19 Direct Assay by [employer] as authorized by the FDA issued Emergency [...] Department of Pathology and Laboratory Medicine at [facility], certified under the Clinical Laboratory Improvement Amendments [...] fact sheets at the following FDA website: https://www.fda.gov/medical-devices/oziszqpdqsi-fdspkba-3952-mkhgd-64-opnrarbce- gml-mxclcaredzdetd-azyosnx-devices/wngar-pyjygzcihgb-vlzh SARS-CoV-2 Source COKE OVEN PATCHER Swab Studies: Results for orders placed or [...] who have questions please contact the health before and after school daycare worker that requested your imaging first. Pending Studies and Lab Data: Culture from [...] gauge x 1/2 Ndle 1 Device by [facility].(Non-Drug; Combo Route) route 3 times daily. 1 [...] Refills: 0 Dexcom G6 Sensor Danielle by [facility].(Non-Drug; Combo Route) route. Sensor, distributor publications andtransmitter Generic drug: Blood-Glucose Sensor Refills: 0 fluticasone propionate 50 mcg/actuation Spsn Commonly known as: Flonase INSTILL 2 SPRAYS INTO EACH NOSTRIL ONCE A DAY NEEDED Refills: 0 folic acid 1 mg Tab Commonly known as: Folvite Take 2 tablets by mouth daily. 2,000 mcg Quantity: 180 tablet Refills: 3 * FreeStyle Gilberto 14 Day Sensor Kit 1 each by [facility].(Non-Drug; Combo Route) route every 14 days. Use to continuously monitor blood glucose. Scan at least 5 times per day. DX: E11.65 Generic drug: flash glucose sensor 1 each Quantity: 6 kit Refills: 3 * FreeStyle Gilberto 2 Sensor Kit 1 each by [facility].(Non-Drug; Combo Route) route every 14 days. Use to continuously monitor blood glucose. Scan at least 4 times per day. Generic drug: flash glucose sensor 1 each Quantity: 6 kit Refills: 3 FreeStyle Gilberto 2 Brandt [facility] Use to continuously monitor [...] 90 tablet Refills: 1 Miscellaneous Medical Supply [facility] 4 Devices by [facility].(Non-Drug; Combo Route) route daily. [...] please contact your inpatient physician through the [facility] [employer] . Issues after hours and on weekends [...] -You can reach the ENT clinic at [phone] for appointment questions. -The ENT triage nurse is available at [phone] -For urgent issues during evenings (5 PM - 7 AM) and weekends the ENT resident ergonomist can be reached through the main hospital table saw operator at [phone] Follow Up: You will need to follow [...] Provider Department Dept Phone 01/13/2022 10:00 AM [facility], ROOM Hematology Oncology at [facility] Arrive at: [facility] door at end of hallway [phone] 01/13/2022 11:00 AM Margaret Purvis APRN Hematology/Oncology at [facility] Arrive at: [facility] door at end of hallway [phone] 01/21/2022 11:00 AM Donell Hernandez MD Endocrinology at [facility] Arrive at: Network Engineering Advisor Area [phone] 01/27/2022 4:00 PM Patti Sanchez AUD; AUDIOLOGY, VERONICA TWO Audiology at [facility] Arrive at: Network Engineering Advisor Area [phone] 01/27/2022 4:40 PM Iraj Scott MD Otolaryngology at [facility] Arrive at: Network Engineering Advisor Area [phone] 02/16/2022 3:00 PM Shira Ramírez APRN Gastroenterology at [facility] Arrive at: Network Engineering Advisor Area [phone] 06/21/2022 11:00 AM Shivam Rojas MD Neurology at [facility] Arrive at: Network Engineering Advisor Area [phone] YOU ARE SCHEDULED FOR A FOLLOW UP APPOINTMENT WITH YOUR PRIMARY CARE PROVIDER, DR VIOLETTA SANFORD, ON 01/15/2022 AT 10:40PM Future Appointments and Orders Future Appointments and Orders Future Appointments Provider Department Dept Phone 01/13/2022 10:00 AM [facility], [facility] Hematology Oncology at [facility] Arrive at: [facility] door at end of hallway [phone] 01/13/2022 11:00 AM Margaret Purvis APRN Hematology/Oncology at [facility] Arrive at: [facility] door at end of hallway [phone] 01/21/2022 11:00 AM Donell Hernandez MD Endocrinology at [facility] Arrive at: Network Engineering Advisor Area [phone] 01/27/2022 4:00 PM Patti Sanchez, WENDI; AUDIOLOGY, VERONICA TWO Audiology at [facility] Arrive at: Network Engineering Advisor Area [phone] 01/27/2022 4:40 PM Iraj Scott MD Otolaryngology at [facility] Arrive at: Network Engineering Advisor Area [phone] 02/16/2022 3:00 PM Shira Ramírez APRN Gastroenterology at [facility] Arrive at: Network Engineering Advisor Area [phone] 06/21/2022 11:00 AM Shviam Rojas MD Neurology at [facility] Arrive at: Network Engineering Advisor Area 3C [phone] Discharge References/Attachments: Discharge References/Attachments None Inpatient Provider Contact Information: For questions regarding this document or issues relating to this hospitalization on the Medical Service, please contact your inpatient physician through the [facility] [employer] . Issues after hours and on weekends will be handled by the Hospitalist on-call. Electronically Signed By: Lizbeth Mcrae MD [facility] 01/07/2022 documented in this encounter Discharge Instructions [...] -You can reach the ENT clinic at [phone] for appointment questions. -The ENT triage nurse is available at [phone] -For urgent issues during evenings (5 PM - 7 AM) and weekends the ENT resident ergonomist can be reached through the main hospital table saw operator at [phone] Follow Up: You will need to follow [...] Provider Department Dept Phone 01/13/2022 10:00 AM [facility] INFUSION, ROOM Hematology Oncology at [facility] Arrive at: [facility] door at end of hallway [phone] 01/13/2022 11:00 AM Margaret Purvis APRN Hematology/Oncology at [facility] Arrive at: [facility] door at end of hallway [phone] 01/21/2022 11:00 AM Donell Hernandez MD Endocrinology at [facility] Arrive at: Network Engineering Advisor Area 3A [phone] 01/27/2022 4:00 PM Patti Sanchez, WENDI; AUDIOLOGY, VERONICA [facility] Audiology at [facility] Arrive at: Network Engineering Advisor Area 4F [phone] 01/27/2022 4:40 PM Iraj Scott MD Otolaryngology at [facility] Arrive at: Network Engineering Advisor Area 4F [phone] 02/16/2022 3:00 PM Shira Ramírez APRN Gastroenterology at [facility] Arrive at: Network Engineering Advisor Area 4L [phone] 06/21/2022 11:00 AM Shivam Rojas MD Neurology at [facility] Arrive at: Network Engineering Advisor Area 3C [phone] YOU ARE SCHEDULED FOR A FOLLOW UP APPOINTMENT WITH YOUR PRIMARY CARE PROVIDER, DR VIOLETTA SANFORD, ON 01/15/2022 AT 10:40PM Patient InstructionsNellie Castañeda S - 01/07/2022 8:38 AM EDT Instructions on [...] please contact your inpatient physician through the [facility] [employer] . Issues after hours and on weekends [...] Use to continuously 1 each 0 2 Brandt Misc monitor blood glucose. Scan at least [...] 6 kit 3 01/13/2021 Day Sensor Kit [facility].(Non-Drug; Combo Route) route every 14 days. Use to continuously monitor blood glucose. Scan at least 5 times per day. DX: E11.65 darbepoetin cristy in Inject 300 mg as 0 polysorbat 10 mcg/0.4 directed as needed. mL Syringe cyanocobalamin, Take 100 mcg by mouth 0 Vitamin B-12, daily. (Vitamin B-12) 100 mcg Tablet Blood-Glucose Sensor by [facility].(Non-Drug; 0 (Dexcom G6 Sensor) Combo Route) route. Device Sensor, distributor publications andtransmitter metoprolol succinate Take 1 tablet by mouth 90 tablet 1 04/2020 XL (Toprol-XL) 50 mg daily. Tablet Sustained Release 24 hr amLODIPine (Norvasc) Take 0.5 tablets by 90 tablet 3 2019 10 mg Tablet mouth daily. fluticasone INSTILL 2 SPRAYS INTO 0 09/06/2019 propionate (FLONASE) EACH NOSTRIL ONCE A 50 mcg/actuation DAY NEEDED [place], Suspension albuterol (PROVENTIL) Take 3 mLs by [...] 100 each 3 03/09/2017 disposable, 29 gauge [facility].(Non-Drug; Combo x 1/2 Route) route 3 times [...] Devices by 4 each 0 12/02/2015 Supply [facility].(Non-Drug; Combo MiscIndications: S/P Route) route daily. 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 cefPODOXime (Vantin) Take 1 tablet by [...] daily. Please use for Suspension 10 days. primidone (Mysoline) Take 1 tablet by mouth [...] Prophylactic immunotherapy ??? Persistent proteinuria ??? 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 Lizbeth Mcrae MD [facility] Ellyn Cobian MD - 01/07/2022 7:52 AM EDT Patient Name: Leroy Torres Patient Age: 66 y.o. Birthdate: 1955 Admit date: 01/06/2022 Attending Physician: Lizbeth Mcrae MD OTOLARYNGOLOGY - HEAD & NECK SURGERY Progress Note Name: Leroy Torres Age/Sex: 66 y.o. male ENT Attending: [facility] Day: 2 History of Present Illness We [...] declined and presented for secondary consultation at [facility]. Myringotomy was performed in office with mucoid [...] (chronic obstructive pulmonary disease) J44.9 ??? 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 PRO INCISION EARDRUM,ASPIR Left 12/29/2021 MYRINGOTOMY ASPIRATION OF MIDDLE EAR (WRVU 1.38) performed by Iraj Scott MD at [facility] MAIN OR ??? PRO LAP, APPENDECTOMY 06/16/2013 LAPAROSCOPIC APPENDECTOMY performed by Angel Mccann MD at [facility] MAIN OR ??? PRO MICROSURG TECHNIQUES, REQ OPER MICROSCOPE Left 12/29/2021 MICROSCOPE USE (WRVU 3.46) performed by Iraj Scott MD at [facility] MAIN OR ??? US RENAL TRANSPLANT LEFT Left 06/26/2019 US Renal Transplant Left 06/26/2019 [facility] RAD ULTRASOUND Medications & Allergies No [...] Gilberto 2 Sensor Kit 1 each by [facility].(Non-Drug; Combo Route) route every 14 days. Use to continuously monitor blood glucose. Scan at least 4 times per day. 6 kit 3 ??? FreeStyle Gilberto 2 Brandt [facility] Use to continuously monitor [...] 14 Day Sensor Kit 1 each by [facility].(Non-Drug; Combo Route) route every [...] Blood-Glucose Sensor (Dexcom G6 Sensor) Device by [facility].(Non-Drug; Combo Route) route. Sensor, distributor publications andtransmitter ??? metoprolol succinate XL (Toprol-XL) 50 mg Tablet Sustained Release 24 hr Take 1 tablet by mouth daily. 90 tablet 1 ??? amLODIPine (Norvasc) 10 mg Tablet Take 0.5 tablets by mouth daily. 90 tablet 3 ??? fluticasone propionate (FLONASE) 50 mcg/actuation [place], Suspension INSTILL 2 SPRAYS INTO EACH NOSTRIL [...] gauge x 1/2 Needle 1 Device by [facility].(Non- Drug; Combo Route) route [...] Reported on 08/06/2016 ??? Miscellaneous Medical Supply [facility] 4 Devices by [facility].(Non-Drug; Combo Route) route daily. Rubber sheath for leg prosthesis (2 pairs) 4 each PRN ??? BD INSULIN PEN NEEDLE UF ORIG 29 gauge x 1/2 Needle 0 ??? aspirin 81 mg EC tablet Take 81 mg by mouth daily. Penicillins, Iftikhar inhibitors, Clindamycin hcl, Allergenic extracts, Ibuprofen, and Sulfamethoxazole-trimethoprim Social History Lives in [place] [address] Social History Socioeconomic History ??? Marital status: [...] AM. __ Ellyn Cobian MD, PGY-3, Pager [phone] 01/07/22 7:52 AM ENT Team Pager: [phone] documented in this encounter H&P Notes Dusty [...] Prophylactic immunotherapy ??? Persistent proteinuria ??? 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 Male presents to [facility] with a 3-day history of severe left-sided [...] pain on the left side with the presybeterian all the way to the jaw and [...] Bone Marrow 10/22/2021 Richar Lo MD [facility] RAD CT SCAN ??? 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 PRO INCISION EARDRUM,ASPIR Left 12/29/2021 MYRINGOTOMY ASPIRATION OF MIDDLE EAR (WRVU 1.38) performed by Iraj Scott MD at [facility] MAIN OR ??? PRO LAP, APPENDECTOMY 06/16/2013 LAPAROSCOPIC APPENDECTOMY performed by Angel Mccann MD at [facility] MAIN OR ??? PRO MICROSURG TECHNIQUES, REQ OPER MICROSCOPE Left 12/29/2021 MICROSCOPE USE (WRVU 3.46) performed by Iraj Scott MD at [facility] MAIN OR ??? US RENAL TRANSPLANT LEFT Left 06/26/2019 US Renal Transplant Left 06/26/2019 [facility] RAD ULTRASOUND Prior To Admission Medications: [...] RA O2 Flow Rate (L/min): n/a Physical Exam: [...] who have questions please contact the health before and after school daycare worker that requested your imaging first. Assessment and Plan: MDM: 66 y.o. male [...] the morning. ED Course as of 01/07/22 0031 TueJan 06, 20221850 WBC: 6.8 1850 Hemoglobin(!): 9.0 [...] Impression: 1. Otitis externa Plan: admit to hospital medicine with ENT following Glory Garcia MD [...] note. Did this case involve critical care? No Lizbeth Clements MD - 01/06/2022 5:57 PM EDT ED [...] oriented to person, place, and time. Comments: JOVEL Psychiatric: Behavior: Behavior normal. Thought Content: Thought [...] light and phone in reach. came to orange picker patient, patient and spouse agree to discharge [...] reviewed with primary team and at interdisciplinary roundsJeffery Alexis is a 66 y.o. Male presented to [...] Type: *No Product type* / Secondary Insurance: [facility] Prescription Coverage: This plan was formulated with input from patient, Reuben Torres, and team. All are in agreement with plan. Jacinta Marin RN [facility] Appointment Clerk/Medicine Office of Care Management Pager: [phone] Plan of Care - Mikayla Poole RN [...] y.o. male ENT Attending: [facility] Day: 1 History of Present Illness [...] declined and presented for secondary consultation at [facility]. Myringotomy was performed in office with mucoid [...] COPD (chronic obstructive pulmonary disease) J44.9 ??? 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 [...] Bone Marrow 10/22/2021 Richar Lo MD [facility] RAD CT SCAN ??? 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 PRO INCISION EARDRUM,ASPIR Left 12/29/2021 MYRINGOTOMY ASPIRATION OF MIDDLE EAR (WRVU 1.38) performed by Iraj Scott MD at [facility] MAIN OR ??? PRO LAP, APPENDECTOMY 06/16/2013 LAPAROSCOPIC APPENDECTOMY performed by Angel Mccann MD at [facility] MAIN OR ??? PRO MICROSURG TECHNIQUES, REQ OPER MICROSCOPE Left 12/29/2021 MICROSCOPE USE (WRVU 3.46) performed by Iraj Scott MD at [facility] MAIN OR ??? US RENAL TRANSPLANT LEFT Left 06/26/2019 US Renal Transplant Left 06/26/2019 [facility] RAD ULTRASOUND Medications & Allergies No [...] Gilberto 2 Sensor Kit 1 each by [facility].(Non-Drug; Combo Route) route every 14 days. Use to continuously monitor blood glucose. Scan at least 4 times per day. 6 kit 3 ??? FreeStyle Gilberto 2 Brandt [facility] Use to continuously monitor [...] 14 Day Sensor Kit 1 each by [facility].(Non-Drug; Combo Route) route every [...] Blood-Glucose Sensor (Dexcom G6 Sensor) Device by [facility].(Non-Drug; Combo Route) route. Sensor, distributor publications andtransmitter ??? metoprolol succinate XL (Toprol-XL) 50 mg Tablet Sustained Release 24 hr Take 1 tablet by mouth daily. 90 tablet 1 ??? amLODIPine (Norvasc) 10 mg Tablet Take 0.5 tablets by mouth daily. 90 tablet 3 ??? fluticasone propionate (FLONASE) 50 mcg/actuation [place], Suspension INSTILL 2 SPRAYS INTO EACH NOSTRIL [...] gauge x 1/2 Needle 1 Device by [facility].(Non- Drug; Combo Route) route [...] Reported on 08/06/2016 ??? Miscellaneous Medical Supply [facility] 4 Devices by [facility].(Non-Drug; Combo Route) route daily. Rubber sheath for leg prosthesis (2 pairs) 4 each PRN ??? BD INSULIN PEN NEEDLE UF ORIG 29 gauge x 1/2 Needle 0 ??? aspirin 81 mg EC tablet Take 81 mg by mouth daily. Penicillins, Iftikhar inhibitors, Clindamycin hcl, Allergenic extracts, Ibuprofen, and Sulfamethoxazole-trimethoprim Social History Lives in [place] [address] Social History Socioeconomic History ??? Marital status: [...] with any questions or concerns. __ Ellyn Cobian MD, PGY-3, Pager [phone] 01/06/22 9:18 PM ENT Team Pager: [phone] ED Triage - Monika Middleton, RN - 01/06/2022 3:59 PM EDT HPI [...] Rojas MD [facility] Neurology [place] [phone] (Wo rk) 06/29/2022 Appointment Cardiology Violetta Sanford M D [address] [place] [address] (Wo rk) 06/30/2022 Infusion Hematology and Oncology 07/14/2022 Infusion Hematology and Oncology 07/28/2022 Infusion Hematology and Oncology 08/11/2022 Infusion Hematology and Oncology 08/16/2022 Office Visit Audiology Mindy Moody A[facility] AUDIOLOGY DEPT [place], [place] [address] (Wo rk) 11/04/2022 Office Visit Rheumatology Dante Freedman PA [facility] RHEUMATOLOGY [place], [place] [address] (Wo rk) documented as of [...] 01/07/2022 6:51 AM Resul ts for this ([facility]) EDT procedure are i n the results section. POCT GLUCOSE Routine 01/07/2022 2:47 AM Results f or this EDT procedure are i n the results section. RAPID COVID-19 PCR STAT 01/06/2022 9:50 PM Res ults for this ([facility]) EDT procedure are in the results section. [...] Signature POC Glucose 179 65 - 199 [facility] mg/dL [facility] Comment: Supplemental ranges: <140 mg/dL before meals <180 mg/dL all other times of the day Specimen Anatomical Collection Method Collection Time Receive d Time (Source) Location / / Volume Laterality Blood 01/07/2022 11:15 01/07/2022 AM EDT 11:15 AM EDT Lizbeth Mcrae MD POINT OF CARE TEST ORDERABLE S Performing Organization Address City/[facility]/[place] [address] POCT Glucose (01/07/2022 7:24 AM EDT) athologist Signature POC Glucose 128 65 - 199 [facility] mg/dL [facility] Comment: Supplemental ranges: <140 mg/dL before meals <180 mg/dL all other times of the day Specimen Anatomical Collection Method Collection Time Receive d Time (Source) Location / / Volume Laterality Blood 01/07/2022 7:24 AM 7:24 EDT AM EDT Lizbeth Mcrae MD POINT OF CARE TEST ORDERABLE S Performing Organization Address City/[facility]/[place] [address] (ABNORMAL) Blood Gas Venous ([facility]) (01/07/2022 6:51 AM EDT) Analysis Performed At Patho logist Time Signature pH Fan 7.30 (L) 7.32 - [facility] 7.42 [facility] pCO2 Fan 43 41 - 51 [facility] mmHg [facility] pO2 Fan 45 (H) 25 - 40 [facility]ORY HCO3 Fan 20.4 mmol/L [facility] BE Fan -6.0 mmol/L [facility] Hgb Blood Gas 9.0 (L) 13.7 - [facility] 16.5 g/dL [facility] Comment: Interpret with caution, 1 ml syringe may give rise to occasional discrepant Hgb results. O2HB Fan 80.6 % [facility] COHB Fan 0.6 % [facility] Comment: Nonsmokers: 0.5-1.5% COHB Smokers: Variable, but usually less than 10% Toxic: 20-30% COHB Lethal: Greater than 60% COHB METHB Fan 0.3 <=1.5 % [facility] Na Whole Blood 140 135 - 145 mmol/L [facility] K Whole Blood 5.3 (H) 3.5 - 5.0 mmol/L [facility] Comment: Please note: Patients with WBC >100,000 may have falsely elevated Potassium levels. Contact the Clinical Chemistry L aboratory if there are any questions. ICa Whole Blood 1.31 1.15 - 1.33 mmol/L [facility] Comment: Note: ??Total bilirubin higher than 20 m g/dL may lead to falsely low ionized calcium. CL Whole Blood 111 (H) 98 - 107 mmol/L [facility] Gluc Whole Bld 115 65 - 199 mg/dL [facility] Comment: Diabetes: >=200 mg/dL plus symp toms Lactate WB 1.0 0.5 - 2.2 mmol/L [facility] BGas Source Venous [facility] Specimen Anatomical Collection Method Collection Time Receive d Time (Source) Location / / Volume Laterality Blood Venous Draw / 01/07/2022 6:51 AM 01/08/20 22 6:56 Unknown EDT AM EDT Resulting Agency Comment Spec In Lab Dusty Haque MD CHEMISTRY ORDERABLES Performing Organization Address City/State/ZIP [place] [address] [facility] [address] POCT Glucose (01/07/2022 2:47 AM EDT) P athologist Signature POC Glucose 106 65 - 199 JERE MELI mg/dL [facility] Comment: Supplemental ranges: <140 mg/dL before meals <180 mg/dL all other times of the day Specimen Anatomical Collection Method Collection Time Receive d Time (Source) Location / / Volume Laterality Blood 01/07/2022 2:47 AM 2:47 EDT AM EDT Dusty Haque MD POINT OF CARE TEST ORDERABLE S Performing Organization Address City/State/ZIP Code Phon e Number [address] COVID-19 PCR (01/06/2022 9:50 PM EDT) Patholo gist Method Time Signature SARS-CoV-2 Not Detected Not Detected [facility] RNA PCR [facility] Comment: This result should be interpreted in com bination with the clinical observations, patient history and epidem iological information. For testing of asymptomatic individuals, assay performa nce characteristics and clinical utility have not been evaluated. Testing for SARS-CoV-2 (Severe acute respiratory syndrome coronavirus 2, form erly known as 2018 novel coronavirus or 2019-nCoV) to aid in the diagnosis of CO VID-19 is performed using the Simplexa COVID-19 Direct Assay by [employer] as authorized by the FDA issued Emergency [...] Department of Pathology and Laboratory Medicine at [facility], certified under the Clinical Laboratory Improvement [...] clinical management guidance information are available at [facility] CDC Coronavirus Disease 2019 (COVID-19) webpage under Information fo r Healthcare Professionals (https://www.cdc.gov/coronavirus/2019-nc ov/hcp/index.html). Additional information about this and ot her EUA tests can be found in provider and patient fact sheets at the following FDA website: https://www.fda.gov/medical-devices/bogcbacglpf-pznnexs-6028-dhisj-41-hmmbvoicc- shs-cwxzopwmzxrwab-aprvull-devices/bcoap-iecjeioknyi-xxxj SARS-CoV-2 Source [employer] P[employer] Swab [facility] Specimen (Source) Anatomical Collection Method Collection Time Re ceived Time Location / / Volume Laterality Nasopharyngeal Swab 01/06/2022 9:50 01/06 PM EDT 10:22 PM EDT Comment: Symptoms->Surveillance Resulting Agency Comment Spec In Lab Lizbeth Melendez MD MICROBIOLOGY - GENERAL ORDER STEPHANIE Performing Organization Address City/State/ZIP [place] [address] (ABNORMAL) Ear culture Middle Ear Fluid; Ear, Left (01/06/2022 9:50 PM EDT) [facility] Method Time Signature Ear Culture Many mixed [facility] bacterial [place] morphotypes [facility] of HOSPITAL normal LABORATORY cutaneous roque (A) Gram Stain Moderate Neutrophils seen [facility] Rare Gram Positive Cocci seen [place] Rare Gram Positive Rods seen [facility] ([facility]) [facility] Organism Gram Positive [facility] Cocci (A) [facility] Organism Gram Positive JERE Rods (A) [facility] Specimen Anatomical Collection Method Collection Time Receive d Time (Source) Location / / Volume Laterality Middle Ear Fluid LEFT EAR STRUCTURE 01/06/2022 9:50 PM 01/06/2022 / Unknown EDT 10:20 PM EDT Comment: Left external canal drainage Resulting Agency Comment Spec In Lab Lizbeth Melednez MD MICROBIOLOGY - GENERAL ORDER STEPHANIE Performing Organization Address City/State/ZIP [place] [address] Temporal Bone wo [...] who have questions please contact the health before and after school daycare worker that requested your imaging first. ? Narrative 01/06/2022 7:36 PM EDT EXAMINATION: CT [...] ho have questions please contact the health before and after school daycare worker that requested your imaging first. Lizbeth Melendez MD IMG CT ORDERABLES Gold Tube HOLD (01/06/2022 6:10 PM EDT) athologist Signature Gold Hold Sample in [facility]. [facility] Specimen Anatomical Collection Method Collection Time Receive d Time (Source) Location / / Volume Laterality Blood No Charge / 01/06/2022 6:10 PM 2 6:18 Unknown EDT PM EDT Glory Garcia MEd CHEMISTRY ORDERABLES Performing Organization Address City/State/ZIP Code Phon e Number [place] [phone] HOSPITAL LAB[address]ORY [address] Differential, Automated (01/06/2022 6:10 PM EDT) P athologist Signature Neutrophils % 54.0 % [facility] Neutr Abs (ANC) 3.67 1.70 - [facility] 6.10 [facility] x10(3)/[facility] LABORATORY Lymphocytes % 30.7 % [facility] Lymphocytes Abs 2.1 0.9 - 3.2 [facility] x10(3)/[facility] LABORATORY Monocytes % 10.6 % [facility] Monocyte Abs 0.7 0.3 - 0.9 [facility] x10(3)/[facility] LABORATORY Eosinophils % 3.7 % [facility] Eosinophils Abs 0.2 0.0 - 0.4 [facility] x10(3)/[facility] LABORATORY Basophils % 0.7 % [facility] Basophils Abs 0.0 0.0 - 0.1 [facility] x10(3)/[facility] LABORATORY Immature Gran % 0.30 % [facility] Comment: Immature granulocytes(IG's)percentage an d absolute count will include metamyelocytes, myelocytes, and promyelo cytes. Blood smears from CBCs yielding IG's will be scanned manually for concor dance. If this scan disagrees with the automated IG or if promyelocytes are not ed, a manual differential will be performed. Courtney Gran Abs 0.02 0.00 - 0.04 x10(3)/[facility] MAR Y [facility] Specimen Anatomical Collection Method Collection Time Receive d Time (Source) Location / / Volume Laterality Blood 01/06/2022 6:10 PM 2 6:17 EDT PM EDT Resulting Agency Comment Spec In Lab Glory Garcia MD HEMATOLOGY ORDERABLES Performing Organization Address City/[facility]/ZIP [place] [address] (ABNORMAL) Hemogram (01/06/2022 6:10 PM EDT) Analysis Performed At Patho logist Time Signature WBC 6.8 4.0 - 9.5 [facility] x[facility](3[facility] LABORATORY RBC 3.13 (L) 4.58 - JERE MELI 5.54 [facility] x10(6)/[facility] LABORATORY Hemoglobin 9.0 (L) 13.7 - [facility] 16.[facility] g/dL [facility] Hematocrit 29.9 (L) 40.5 - [facility] 48.5 % [facility] MCV 95.5 (H) 82.9 - [facility] 93.1 [facility] LABORATORY MCH 28.8 27.5 - [facility] 32.1 pg [facility] MCHC 30.1 (L) 32.0 - [facility] 35.7 g/dL [facility] Platelets 247 145 - 357 [facility] x10(3)/[facility] LABORATORY RDWSD 54.7 (H) 36.0 - JERE MELI 45.0 [facility] LABORATORY RDWCV 15.8 (H) 11.4 - [facility] MELI 13.8 % [facility] MPV 8.0 7.6 - 12.9 [facility] LABORATORY nRBC % Auto 0.0 % [facility] nRBC Abs Auto 0.000 0.000 - [facility] MELI 0.000 [facility] x10(3)/[facility] LABORATORY Specimen Anatomical Collection Method Collection Time Receive d Time (Source) Location / / Volume Laterality Blood 01/06/2022 6:10 PM 6:17 EDT PM EDT Resulting Agency Comment Spec In Lab Glory Garcia MD HEMATOLOGY ORDERABLES Performing Organization Address City/[facility]/[place] [address] (ABNORMAL) Basic Metabolic Panel (non-fasting) (01/06/2022 6:10 PM EDT) P athologist Signature Glucose Lvl 146 65 - 199 [facility] mg/dL [facility] Comment: Diabetes: >=200 mg/dL plus symp toms BUN 31 (H) 10 - 20 mg/dL [facility] Creatinine 3.12 (H) 0.80 - 1.50 mg/dL [facility] Sodium 139 135 - 145 mmol/L [facility] Potassium 5.8 (H) 3.5 - 5.0 mmol/L [facility] Comment: Please note: ??Patients with WBC >100,00 0 may have falsely elevated Potassium levels. ??For accurate Potassium quantif ication in these patients send serum separator tube (gold top) for subsequent determinations. ??Contact the Clinical Chemistry Laboratory if there are any qu estions. Chloride 108 (H) 98 - 107 mmol/L [facility] CO2 18 (L) 22 - 31 mmol/L [facility] Anion Gap 13 5 - 15 mmol/L [facility] Calcium 9.4 8.5 - 10.5 mg/dL [facility] Estimated GFR 21 (L) >=60 [...] Organization Address City/State/ZIP [place] [address] documented in this encounter Visit Diagnoses Diagnosis Otitis externa - Primary Infective otitis externa, unspecified Otitis externa Infective otitis externa, unspecified documented [...] 40 mg, Oral, DAILY, First dose on [facility] 01/07/22 at 0900, Until Discontinued primidone [...] 1 mg, Oral, DAILY, First dose on [facility] 01/07/22 at 0900, Until Discontinued, DO NOT SPLIT, CRUSH OR OPEN, Routine documented in this encounter Active and Recently Administered Medications Times are shown in EDT. Scheduled Medication Order 01/05/2022 01/06/2022 01/07/2022 amLODIPine (Norvasc) tablet 5 mg 08 (Given - Provider: Reanna Otto RN) 5 mg, Oral, DAILY, First dose on 12/23 at 0900, Until Discontinued, Routine aspirin EC tablet 81 mg 08 (Gi fan - Provider: Reanna Otto RN) 81 mg, Oral, DAILY, First dose on Tue at 0900, Until Discontinued, Routine atorvastatin (Lipitor) tablet 20 mg 20 mg, Oral, EVERY EVENING, First dose o n Tue01/07/22 at 1700, Until Discontinued, Routine budesonide-formoteroL (Symbicort) 160-4.5 mcg/actuation inhaler 2 Inhalation 604 (Given - Provider: Mikayla Poloe RN) 2 Inhalation, Inhalation, (R) 2 TIMES [...] .3-0.1 % otic suspension 4 drop (COMPLETED) 1811 (Given - Provider: Alexa Sarmiento LPN) 4 [...] med 250 mL, at 1,000 mL/hr, Intravenous, LIAS RY 30 MIN PRN, Starting on Lucie [...] episode. & nbsp; For persistent hypoglycemia, con morning news anchor longer-acting treatment for the duration of the [...]
Routine documented in this encounter Care Teams Medical Voucher Clerk Relationship Specialty Start Date End Date Violetta Sanford MD PCP - General 04/02/14 [address] [place] [address] documented as of this encounter
--- OUTSIDE RECORDS SUMMARY | 2022-06-16 12:22 | XMS_ITS | Encounter Summary ---
:1955 Author Organization [facility] [place] [address] Care Team Providers Name Role Phone Violetta Sanford MD Primary Care Provider Encounter Details Date Type Department Care Team Description 01/06/2022 Telephone Otolaryngology at [facility] [place] [address] Social History Tobacco Use Types Packs/Day [...] PM EDT Patient's call returned. Patient left VM on nurse triage line explaining since his surgery to place ear tubes, with Dr. Scott on 12/29, he's started with headaches, ear ache, sore throat. Patient said he's going to his local urgent care to be evaluated. Attempt to call patient back for update on the UCvisit. VM left with call back number. documented in this encounter Plan of Treatment Upcoming Encounters Date Type Specialty Care Team Description 06/16/2022 Infusion Hematology and Oncology 06/21/2022 Office Visit Neurology Tyler Rojas MD [facility] Neurology [place], [place] [phone] (Wo rk) 06/29/2022 Appointment Cardiology Violetta Sanford M D [address] [place], [place] [address] (Wo rk) 06/30/2022 Infusion Hematology and Oncology 07/14/2022 Infusion Hematology and Oncology 07/28/2022 Infusion Hematology and Oncology 08/11/2022 Infusion Hematology and Oncology 08/16/2022 Office Visit Audiology Mindy Moody AUD [facility] AUDIOLOGY DEPT [place], [place] [address] (Wo rk) 11/04/2022 Office Visit Rheumatology Dante Freedman PA [facility] RHEUMATOLOGY [place], [place] [address] (Wo rk) documented as of this encounter Visit Diagnoses Not on filedocumented in this encounter Care Teams [employer] Security Consultant Relationship Specialty Start Date End Date Violetta Sanford MD PCP - General 04/02/14 [address] [place], [place] [address] documented as of this encounter
--- OUTSIDE RECORDS SUMMARY | 2022-06-16 12:22 | XMS_ITS | Encounter Summary ---
:1955 Author Organization [facility] [place] [address] Care Team Providers Name Role Phone Violetta Sanford MD Primary Care Provider Reason for Visit Reason Comments Post Op Some draining, . AD aching . Encounter Details Date Type Department Care Team Description 01/14/2022 Office Visit Otolaryngology at [facility] Iraj Scott MD Chronic mucoid otitis media of left ear; [facility] [employer] (Eust achian tube dysfunction), left; 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 Bone-conduction thresholds essentially symmetric. Speech radiology receptionist thresholds at 20 dB for the [...] COPD (chronic obstructive pulmonary disease) J44.9 ??? assisted current use of immunosuppressive drug Z79.899 ??? [...] BY MOUTH DAILY 30 capsule 5 ??? Free99Bill Gilberto 2 Sensor Kit 1 each by [facility].(Non-Drug; Combo Route) route every 14 days. Use to continuously monitor blood glucose. Scan at least 4 times per day. 6 kit 3 ??? FreeStyle Gilberto 2 [place] [facility] Use to continuously monitor [...] Kit 1 each by [facility].(Non-Drug; Combo Route) route every [...] G6 Sensor) Device by [facility].(Non-Drug; Combo Route) route. Sensor, day care worker andtransmitter ??? metoprolol succinate XL (Toprol-XL) 50 mg Tablet Sustained Release 24 hr Take 1 tablet by mouth daily. 90 tablet 1 ??? fluticasone propionate (FLONASE) 50 mcg/actuation [place], Suspension INSTILL 2 SPRAYS INTO EACH NOSTRIL [...] 90 capsule 3 ??? Miscellaneous Medical Supply [facility] 4 Devices by Mis.(Non-Drug; Combo Route) route daily. Rubber sheath for [...] Biopsy Bone Marrow 10/22/2021 Richar Lo MD [facility] RAD CT SCAN ??? 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 PRO INCISION EARDRUM,ASPIR Left 12/29/2021 MYRINGOTOMY ASPIRATION OF MIDDLE EAR (WRVU 1.38) performed by Iraj Scott MD at [facility] MAIN OR ??? PRO LAP, APPENDECTOMY 06/16/2013 LAPAROSCOPIC APPENDECTOMY performed by Angel Mccann MD at [facility] MAIN OR ??? PRO MICROSURG TECHNIQUES, REQ OPER MICROSCOPE Left 12/29/2021 MICROSCOPE USE (WRVU 3.46) performed by Iraj Scott MD at [facility] MAIN OR ??? US RENAL TRANSPLANT LEFT Left 06/26/2019 US Renal Transplant Left 06/26/2019 [facility] RAD ULTRASOUND Family and Social History Family History: No family history on file. Social History: Lives in [facility] [place] [facility] [id number] Social History Socioeconomic History ??? Marital status: [...] Rojas MD [facility] Neurology [place], [place] [phone] (Wo rk) 06/29/2022 Appointment Cardiology Violetta Sanford M D [address] [place], [place] [id number] (Wo rk) 06/30/2022 Infusion Hematology and Oncology 07/14/2022 Infusion Hematology and Oncology 07/28/2022 Infusion Hematology and Oncology 08/11/2022 Infusion Hematology and Oncology 08/16/2022 Office Visit Audiology Mindy Moody AUD [facility] AUDIOLOGY [place], [place] [address] (Wo rk) 11/04/2022 Office Visit Rheumatology Dante Freedman PA [facility] RHEUMATOLOGY [place], [place] [address] (Wo rk) documented as of this encounter Visit Diagnoses Diagnosis Chronic mucoid otitis media of left ear Simple or unspecified chronic mucoid bteh tis media ETD (Eustachian tube dysfunction), left 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
--- OUTSIDE RECORDS SUMMARY | 2022-06-16 12:22 | XMS_ITS | Encounter Summary ---
:1955 Author Organization [facility] [address] Care Team Providers Name Role Phone Violetta Sanford MD Primary Care Provider Reason for Visit Reason Comments Follow-up Encounter Details Date Type Department Care Team Description 01/13/2022 Office Visit Hematology/Oncology Margaret Purvis, Rosa maki of chronic renal failure, stage 4 (severe); at [facility] FLASH RANGING CREWMEMBER H/O kidney transplant; [address] [place] [address] CKD (chronic kidney disease) stage 4, GFR 15-29 ml/[place] [address] HEMATOLOGY/ONCOLOG [phone] Y DEPT. [place], [place] [address] Social History Tobacco Use Types [...] in this encounter Progress Notes Margaret Purvis, FL[employer]ANGING [employer]WMEMBER - 01/13/2022 11:00 AM EDT Subjective: Patient ID: Leroy Torres is a 66 y.o. male here for follow-up of chronic anemia due to renal insufficiency. Followed by Dr Garnett at [facility]. Seen for epo supplementation. Patient Active Problem [...] ??? Prophylactic immunotherapy ??? Persistent proteinuria ??? salvage determiner current use of immunosuppressive drug ??? Aftercare [...] pain on the left side with the samaritan all the way to the jaw and [...] chronically-ill appearing 66 year old male in [facility]. He is accompanied to clinic by his [...] changes in status. ?? Margaret Purvis, MSN, [employer] Nurse Practitioner Section of Hematology documented in this encounter Plan of Treatment Upcoming Encounters Date Type Specialty Care Team Description 06/16/2022 Infusion Hematology and Oncology 06/21/2022 Office Visit Neurology Tyler Rojas MD [facility] Neurology [place], [place] [phone] ( gregg) 06/29/2022 Appointment Cardiology Violetta Sanford M D [address] [place] [address] ( rk) 06/30/2022 Infusion Hematology and Oncology 07/14/2022 Infusion Hematology and Oncology 07/28/2022 Infusion Hematology and Oncology 08/11/2022 Infusion Hematology and Oncology 08/16/2022 Office Visit Audiology Mindy Moody AUD [facility] AUDIOLOGY DEPT [place], [place] [address] (Wo rk) 11/04/2022 Office Visit Rheumatology Dante Freedman PA [facility] RHEUMATOLOGY [place], [place] [address] (Wo rk) documented as of [...] ) documented in this encounter Care Teams Stores Naval Relationship Specialty Start Date End Date Violetta Sanford MD PCP - General 04/02/14 [address] [place] [address] documented as of this encounter
--- OUTSIDE RECORDS SUMMARY | 2022-06-16 12:22 | XMS_ITS | Encounter Summary ---
:1955 Author Organization [facility] [place] [address] Care Team Providers Name Role Phone Violetta Sanford MD Primary Care Provider Reason for Visit Reason Onset Date Comments Labs Only 01/13/2022 Lab tracking Encounter Details Date Type Department Care Team Description 01/13/2022 Telephone Hematology/Oncology at Brittany Vera RN Labs Only (Lab tracking) [address] [phone] Social History Tobacco Use Types Packs/Day Years Used Date Smoking Tobacco: Former Cigarettes 2 20 Quit : 01/19/1993 Smokeless Tobacco: Never Alcohol Use Standard Drinks/Week Comments Yes 0 (1 standard drink = 0.6 oz pure alcoho l) Once a year Sex Assigned at Date Recorded Not on file documented as of this encounter Miscellaneous Notes Telephone Encounter - Brittnay Vera RN - 01/13/2022 10:16 AM EDT LAB TRACKING Leroy Torres [id number] 1955 ?? DIAGNOSIS: Anemia d/t CKD stage [...] Neurology Tyler Rojas MD [facility] Neurology [place], [place] [phone] (Wo rk) 06/29/2022 Appointment Cardiology Violetta Sanford M D [address] [place], [place] [id number] (Wo rk) 06/30/2022 Infusion Hematology and Oncology 07/14/2022 Infusion Hematology and Oncology 07/28/2022 Infusion Hematology and Oncology 08/11/2022 Infusion Hematology and Oncology 08/16/2022 Office Visit Audiology Mindy Moody AUD [facility] AUDIOLOGY [place], [place] [address] (Wo rk) 11/04/2022 Office Visit Rheumatology Dante Freedman, DA [facility] RHEUMATOLOGY [place], [place] [address] ( rk) documented as of this encounter Visit Diagnoses Not on filedocumented in this encounter Care Teams Mill Set Up Relationship Specialty Start Date End Date Violetta Sanford MD PCP - General 04/02/14 [address] [place], [place] [address] documented as of this encounter
--- OUTSIDE RECORDS SUMMARY | 2022-06-16 12:22 | XMS_ITS | Encounter Summary ---
:1955 [place] [address] Care Team Providers Name Role Phone Violetta Sanford MD Primary Care Provider Encounter Details Date Type Department Care Team Description 12/29/2021 Anesthesia Event Main Operating Room Sivakumar Wolfe MD [facility] [place] [address] [facility] [place] [address] Anesthesia Record Procedure Summary Procedure Name Responsible Anesthesia Start Anesthesia Stop Anesthesiologist Time Time MICROSCOPE USE (SANJUANAVU Keiry Dimas MD 12/29/21 0729 12/29/21 08 37 3.46) (Left: Ear) Events Date Time Event Comment 12/29/2021 [...] Details Placement Removal (RETIRED) Hemodialysis arteriovenous fistula; 11/23/13 1622 by Access left, forearm Dwinell, Purnima M, RN Incision 12/29/21; 0806; Left; 12/29/21 0806 by ear (myringotomy) Niyah Blair RN Incision 06/21/11; 1329; leg; 06/21/11 1329 by 02/09/22 0 646 by 02/09/22; 0646 Tabitha Fournier Philibert, E rica RN H, RN (RETIRED) Wound 06/16/13 1822 by 02/09/22 0646 Purnima Dumont RN Philibert, E rica H RN (RETIRED) Wound 06/20/13 1830 by 02/09/22 0646 Kory Chew RN Philibert, Michael Camejo, RN PIV 11/18/21; 1230; basilic 11/18/21 1230 by 2 1027 by vein (medial side of Jumana Saab Andrea arm), right; SHEILA Ramirez ncjk-uoh-rqbyze catheter system; 22 gauge; JW; distraction, tolerated well, appears comfortable; 1; 12/29/21 (LDA Cleanup utility RA#[id number]); 1027 (LDA Cleanup utility RA#[id number]) PIV 12/29/21; 0702; cephalic 12/29/21 0702 by 0952 by vein (lateral side of Karen Bauman RN Rayno, Sarah E, RN arm), right; mayw-nrs-zhwhma catheter system; Anatomical Landmarks; 20 gauge, 1 [...] Procedure Summary Date: 12/29/21 Room / Location: [facility] OR [facility] MAIN OR Anesthesia Start: 728 Anesthesia Stop: [...] All Anesthesia Providers: Anesthesiologist: Keiry Dimas MD FLOOR GRINDER: Lane Poole CRNA Student Nurse Brand Inspector: Milton Son Vitals Value Taken Time BP 148/66 12/29/21 0925 Temp 36.7 ??C (98.1 ??F) 12/29/21 0951 Pulse 71 12/29/21 0901 Resp 17 12/29/21 0901 SpO2 95 % 12/29/21 0925 Pain Level 0 12/29/21 0951 Vitals shown include unvalidated device data. Patient Location: PACU/[facility] Level of Consciousness: Conscious but Sleepy Pain [...] immunotherapy 03/21/2019 ??? Persistent proteinuria 03/08/2017 ??? nursing home current use of immunosuppressive drug 07/23/2016 ??? [...] Biopsy Bone Marrow 10/22/2021 Richar Lo MD [facility] RAD CT SCAN ??? 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 PRO LAP, APPENDECTOMY 06/16/2013 LAPAROSCOPIC APPENDECTOMY performed by Angel Mccann MD at [facility] MAIN OR ??? US RENAL TRANSPLANT LEFT Left 06/26/2019 US Renal Transplant Left 06/26/2019 [facility] RAD ULTRASOUND Social History Tobacco Use [...] lb 4.5 oz) Last edited 12/29/21626 by Airway Assessment: Mallampati: III TM distance: >3 [...] risks discussed with patient. Plan discussed with FLOOR GRINDER and attending. Anesthesia Screening documented in this encounter Plan of Treatment Upcoming Encounters Date Type Specialty Care Team Description 06/16/2022 Infusion Hematology and Oncology 06/21/2022 Office Visit Neurology Tyler Rojas MD [facility] Neurology [place] [address]22 (Wo rk) 06/29/2022 Appointment Cardiology Violetta Sanford M D [address] [place] [address] (Wo rk) 06/30/2022 Infusion Hematology and Oncology 07/14/2022 Infusion Hematology and Oncology 07/28/2022 Infusion Hematology and Oncology 08/11/2022 Infusion Hematology and Oncology 08/16/2022 Office Visit Audiology Mindy Moody AUD [facility] AUDIOLOGY [place], [place] [address] (Wo rk) 11/04/2022 Office Visit Rheumatology Dante Freedman, DA [facility] RHEUMATOLOGY [place], [place] [address] (Wo rk) documented as of [...] Intra-op documented in this encounter Care Teams Aircraft Technician Relationship Specialty Start Date End Date Violetta Sanford MD PCP - General 04/02/14 [address] [place] [address] documented as of this encounter
--- OUTSIDE RECORDS SUMMARY | 2022-06-16 12:22 | XMS_ITS | Encounter Summary ---
:1955 Author Organization [facility] [place] [address] Care Team Providers Name Role Phone Violetta Sanford MD Primary Care Provider Reason for Visit Reason Onset Date Comments Labs Only 12/16/2021 Lab Tracking Encounter Details Date Type Department Care Team Description 12/16/2021 Telephone Hematology/Oncology at [facility] Quinn, Labs Only (Lab [facility] RN Tracking) [address] [place] [phone] Social History Tobacco Use Types Packs/Day [...] 11:51 AM EDT LAB TRACKING Leroy Torres [id number] 1955 ?? DIAGNOSIS: Anemia d/t CKD stage [...] [facility] Neurology [place], [place] [address] (Oscar escobedo) 06/29/2022 Appointment Cardiology Violetta Sanford M D [facility] [address] [address] (Wo rk) 06/30/2022 Infusion Hematology and Oncology 07/14/2022 Infusion Hematology and Oncology 07/28/2022 Infusion Hematology and Oncology 08/11/2022 Infusion Hematology and Oncology 08/16/2022 Office Visit Audiology Mindy Moody AUD [facility] AUDIOLOGY [place], [place] 0[address] (Oscar rk) 11/04/2022 Office Visit Rheumatology Dante Freedman, PA [facility] RHEUMATOLOGY [place] [address] (Wo rk) documented as of [...] At Patho logist Time Signature WBC 6.31 [facility] Hemoglobin 8.1 [facility] Hematocrit 27.6 [facility] Platelets 189 [facility] Neutr Abs (ANC) 3.8 [facility] Specimen (Source) Anatomical Location Collection Method / Collectio n Time Received Time / Laterality Volume Blood 12/16/2021 Nicky Baez MD HEMATOLOGY ORDERABLES Performing Organization Address City/[facility]/ZIP Code Phon e Number [address] [place], [place] [phone] HOSPITAL (ABNORMAL) Comprehensive metabolic panel (non-fasting) (12/16/2021) P athologist Signature BUN 37 [facility] Creatinine 3.4 [facility] Potassium 5.2 [facility] Alk Phos 138 [facility] AST 12 (L) [facility] ALT 21 [facility] Specimen (Source) Anatomical Location Collection Method / Collectio n Time Received Time / Laterality Volume Blood 12/16/2021 Nicky Baez MD CHEMISTRY ORDERABLES Performing Organization Address City/[facility]/ZIP [facility] Phon e Number [address] [place], [place] [phone] HOSPITAL documented in this encounter Visit Diagnoses Not on filedocumented in this encounter Care Teams Online Merchant Relationship Specialty Start Date End Date Violetta Sanford MD PCP - General 04/02/14 [address] [place], [place] [id number] documented as of this encounter
--- OUTSIDE RECORDS SUMMARY | 2022-06-16 12:22 | XMS_ITS | Encounter Summary ---
:1955 Author Organization [facility] [place] [address] Care Team Providers Name Role Phone Violetta Sanford MD Primary Care Provider Reason for Visit Reason Comments Injections aranesp Treatment/Therapy Plan Authorization (Routine) - Authorized Specialty Diagnoses / Procedures Referred By Contact Refer red To Contact Hematology and Diagnoses CKD (chronic kidney disease) stage 4, GFR 15-29 ml/min Nicky Baez Elizabeth Oncology Procedures MD James NUR MD [address] HEMATOLOGY/ONCOLOGY [place], [place] [address]PT. [id number] [place] [id number] Referral ID Status Reason Start Date Expiration Date Visits V isits Requested Authorized [id number] Authorized 10/08/2020 07/24/2023 99 99 Encounter Details Date Type Department Care Team Description 01/13/2022 Infusion Hematology Oncology at [facility] of chronic renal [facility] failure, stage 4 (severe) [address] [place], [place] [phone] Social History Tobacco Use [...] and BSA by Jumana Saab, SHEILA and [facility]. REACTIONS (DESCRIPTION, TIME, INTERVENTION AND EFFECTIVENESS) none ASSESSMENT Reuben was awake, alert and tolerated treatment well. Aranesp given in [place]. PLAN Return to clinic in 2 weeks. documented in this encounter Plan of Treatment Upcoming Encounters Date Type Specialty Care Team Description 06/16/2022 Infusion Hematology and Oncology 06/21/2022 Office Visit Neurology Tyler Rojas MD [facility] Neurology [place], [place] [phone] (Wo rk) 06/29/2022 Appointment Cardiology Violetta Sanford M D [facility] [address] [place] [address] (Wo rk) 06/30/2022 Infusion Hematology and Oncology 07/14/2022 Infusion Hematology and Oncology 07/28/2022 Infusion Hematology and Oncology 08/11/2022 Infusion Hematology and Oncology 08/16/2022 Office Visit Audiology Mindy Moody AUD [facility] AUDIOLOGY DEPT [place], [place] [address] (Wo gregg) 11/04/2022 Office Visit Rheumatology Dante Freedman PA [facility] RHEUMATOLOGY [place], [place] [address] (Oscar escobedo) documented as of [...] (CKD) documented in this encounter Care Teams Bulk Tank Driver Relationship Specialty Start Date End Date Violetta Sanford MD PCP - General 04/02/14 [address] [place] [address] documented as of this encounter
--- OUTSIDE RECORDS SUMMARY | 2022-06-16 12:22 | XMS_ITS | Encounter Summary ---
:1955 Author Organization [facility] [place] [address] Care Team Providers Name Role Phone Violetta Sanford MD Primary Care Provider Encounter Details Date Type Department Care Team Description 01/06/2022 Telephone Otolaryngology at [facility] [place] [address] Social History Tobacco Use Types Packs/Day Years [...] Tyler Rojas MD [facility] Neurology [place], [place] [phone] (Wo rk) 06/29/2022 Appointment Cardiology Violetta Sanford M D [address] [place], [place] [address] (Wo rk) 06/30/2022 Infusion Hematology and Oncology 07/14/2022 Infusion Hematology and Oncology 07/28/2022 Infusion Hematology and Oncology 08/11/2022 Infusion Hematology and Oncology 08/16/2022 Office Visit Audiology Mindy Moody AUD [facility] AUDIOLOGY [place], [place] [address] (Wo rk) 11/04/2022 Office Visit Rheumatology Dante Freedman, PA [facility] RHEUMATOLOGY [place], [place] [address] (Wo rk) documented as of this encounter Visit Diagnoses Not on filedocumented in this encounter Care Teams Toll Line Inspector Relationship Specialty Start Date End Date Violetta Sanford MD PCP - General 04/02/14 [address] [place] [address] documented as of this encounter
--- OUTSIDE RECORDS SUMMARY | 2022-06-16 12:22 | XMS_ITS | Encounter Summary ---
:1955 Author Organization [facility] [place] [address] Care Team Providers Name Role Phone Violetta Sanford MD Primary Care Provider Reason for Referral Consultation (Routine) - Authorized Specialty Diagnoses / Procedures Referred By Contact Refer red To Contact Gastroenterology Diagnoses Dysphagia, unspecified type dysphagia Violetta Sanford MD [facility] Gastro 4l [address] [place], [place] [address] [place] [phone] Phone: Fax: Referral ID Status Reason Start Expiration Visits Visits Date Date Requested Authorized [id number] Authorized Consult, 12/04/2021 12/04/2022 6 6 Test & Treat PCP Updated and/or Approved Encounter Details Date Type Department Care Team Description 12/04/2021 Transcribe Orders eDH Incoming Violetta Sanford, Sharon aAntonino MD unspecified type [phone] [address] [place] [address] Social History Tobacco Use Types Packs/Day Years [...] Rojas MD [facility] Neurology [place], [place] [phone] (Wo rk) 06/29/2022 Appointment Cardiology Violetta Sanford M D [address] [place], [place] [address] (Wo rk) 06/30/2022 Infusion Hematology and Oncology 07/14/2022 Infusion Hematology and Oncology 07/28/2022 Infusion Hematology and Oncology 08/11/2022 Infusion Hematology and Oncology 08/16/2022 Office Visit Audiology Mindy Moody AUD [facility] AUDIOLOGY DEPT [place], [place] [address] (Wo rk) 11/04/2022 Office Visit Rheumatology Dante Freedman PA [facility] RHEUMATOLOGY [place], [place] [address] (Wo rk) Scheduled Referrals Name Type Priority Associated Order Schedule Diagnoses Referral to Outpatient Routine Dysphagia, Ordered: Gastroenterology Referral unspecified type 022 documented as of this encounter Visit Diagnoses Diagnosis Dysphagia, unspecified type documented in this encounter Care Teams Resource Manager Relationship Specialty Start Date End Date Violetta Sanford MD PCP - General 04/02/14 [address] [place], [place] [address] documented as of this encounter
--- OUTSIDE RECORDS SUMMARY | 2022-06-16 12:22 | XMS_ITS | Encounter Summary ---
:1955 Author Organization [facility] Address [facility] [place] [address] Care Team Providers Name Role Phone Violetta Sanford MD Primary Care Provider Encounter Details Date Type Department Care Team Description 01/21/2022 Office Visit Endocrinology at [facility] Donell Hernandez, Type 2 diabetes mellitus wit h hyperglycemia, with long-term current use of insulin; [facility] CKD (chronic kidney disease) stage 4, GF R 15-29 ml/min; [facility] S/P bilateral BKA (below kne e amputation); [place] [address] CENTER History of renal transplant [phone] ENDOCRINOLOGY DEPT. [place], [place] [address] Social History Tobacco Use Types [...] Cr: 2021 last lipid panel: 2021 regular radiosonde operator:no special shoes:no flu shot :yes COVID moderna [...] Gilberto 2 Sensor Kit 1 each by [facility].(Non-Drug; Combo Route) route every 14 days. Use to continuously monitor blood glucose. Scan at least 4 times per day. Yes FreeStyle Gilberto 2 [place] Misc Use to continuously monitor blood glucose. [...] 14 Day Sensor Kit 1 each by [facility].(Non-Drug; Combo Route) route every [...] daily. Yes fluticasone propionate (FLONASE) 50 mcg/actuation Serafina, Suspension INSTILL 2 SPRAYS INTO EACH NOSTRIL [...] gauge x 1/2 Needle 1 Device by [facility].(Non-Drug; Combo Route) route 3times [...] Reported on 08/06/2016 Yes Miscellaneous Medical Supply [facility] 4 Devices by Misc.(Non-Drug; Combo Route) route daily. Rubber sheath for [...] Blood-Glucose Sensor (Dexcom G6 Sensor) Device by [facility].(Non-Drug; Combo Route) route. Sensor, home and school visitor andtransmitter Appearance: looks well BP 150/62 Pulse [...] Rojas MD [facility] Neurology [place], [place] [address] (Wo rk) 06/29/2022 Appointment Cardiology Violetta Sanford M D [address] [place] [address] (Wo rk) 06/30/2022 Infusion Hematology and Oncology 07/14/2022 Infusion Hematology and Oncology 07/28/2022 Infusion Hematology and Oncology 08/11/2022 Infusion Hematology and Oncology 08/16/2022 Office Visit Audiology Mindy Moody AUD [facility] AUDIOLOGY [place], [place] [address] (Wo rk) 11/04/2022 Office Visit Rheumatology Dante Freedman PA [facility] RHEUMATOLOGY [place], [place] [address] (Wo rk) Scheduled Orders Name [...] transplant documented in this encounter Care Teams Career Technical Supervisor Relationship Specialty Start Date End Date Violetta Sanford MD PCP - General 04/02/14 [address] [place] [address] documented as of this encounter
--- OUTSIDE RECORDS SUMMARY | 2022-06-16 12:22 | XMS_ITS | Encounter Summary ---
:1955 Author Organization [facility] [place] [address] Care Team Providers Name Role Phone Violetta Sanford MD Primary Care Provider Encounter Details Date Type Department Care Team Description 12/02/2021 Orders Only Hematology and Oncology at [facility] Gris Ramirez [facility] [place] [address] HEMATOLOGY/ONCOLOGY [phone] DEPT. [place], [place] [address] (Wo rk) Social History Tobacco [...] Tyler Rojas MD [facility] Neurology [place], [place] [address] (Wo rk) 06/29/2022 Appointment Cardiology Violetta Sanford M D [address] [place] [address] (Wo rk) 06/30/2022 Infusion Hematology and Oncology 07/14/2022 Infusion Hematology and Oncology 07/28/2022 Infusion Hematology and Oncology 08/11/2022 Infusion Hematology and Oncology 08/16/2022 Office Visit Audiology Mindy Moody AUD [facility] AUDIOLOGY [place], [place] [address] (Wo rk) 11/04/2022 Office Visit Rheumatology Dante Freedman PA [facility] RHEUMATOLOGY [place], [place] [address] (Wo rk) documented as of this encounter Visit Diagnoses Not on filedocumented in this encounter Care Teams Immunologist Relationship Specialty Start Date End Date Violetta Sanford MD PCP - General 04/02/14 [address] [place] [address] documented as of this encounter
--- OUTSIDE RECORDS SUMMARY | 2022-06-16 12:22 | XMS_ITS | Encounter Summary ---
:1955 Author Organization [facility] [place] [address] Care Team Providers Name Role Phone Violetta Sanford MD Primary Care Provider Reason for Visit Reason Onset Date Comments Labs Only 11/26/2021 Lab tracking Encounter Details Date Type Department Care Team Description 11/26/2021 Telephone Hematology/Oncology at Brittany Vera RN Labs Only (Lab tracking) [address] [phone] Social History Tobacco Use Types [...] 11:47 AM EDT LAB TRACKING Leroy Torres [id number] 1955 ?? DIAGNOSIS: Anemia d/t CKD stage [...] Rojas MD [facility] Neurology [place], [place] [address] (Oscar escobedo) 06/29/2022 Appointment Cardiology Violetta Sanford M D [address] [place] [address] (Oscar escobedo) 06/30/2022 Infusion Hematology and Oncology 07/14/2022 Infusion Hematology and Oncology 07/28/2022 Infusion Hematology and Oncology 08/11/2022 Infusion Hematology and Oncology 08/16/2022 Office Visit Audiology Mindy Moody AUD [facility] AUDIOLOGY [place], [place] [address] (Wo rk) 11/04/2022 Office Visit Rheumatology Dante Freedman PA [facility] RHEUMATOLOGY [place], [place] [address] (Wo rk) documented as of [...] on filedocumented in this encounter Care Teams Steel Roller Relationship Specialty Start Date End Date Violetta Sanford MD PCP - General 04/02/14 [address] [place] [address] documented as of this encounter
--- OUTSIDE RECORDS SUMMARY | 2022-06-16 12:22 | XMS_ITS | Encounter Summary ---
:1955 Author Organization [facility] [place] [address] Care Team Providers Name Role Phone Violteta Sanford MD Primary Care Provider Reason for Visit Reason Comments IV Medication IV venoferSQ aranesp Treatment/Therapy Plan Authorization (Routine) - Pending Review Specialty Diagnoses / Procedures Referred By Contact Refer red To Contact Diagnoses CKD (chronic kidney disease) stage 4, GFR 15-29 ml/min Nicky Baez MD [facility] D R HEMATOLOGY/[place] [address] Referral ID Status Reason Start Date Expiration Date Visits V isits Requested Authorized [id number] Pending 11/10/2021 11/10/2022 99 99 Review Encounter Details Date Type Department Care Team Description 12/02/2021 Infusion Hematology Oncology at [facility] of chronic renal [facility] failure, stage 4 (severe) [address] [place] [phone] Social History Tobacco Use Types [...] Rojas MD [facility] Neurology [place], [place] [address] (Oscar escobedo) 06/29/2022 Appointment Cardiology Violetta Sanford M D [address] [place] [address] (Oscar escobedo) 06/30/2022 Infusion Hematology and Oncology 07/14/2022 Infusion Hematology and Oncology 07/28/2022 Infusion Hematology and Oncology 08/11/2022 Infusion Hematology and Oncology 08/16/2022 Office Visit Audiology Mindy Moody AUD [facility] AUDIOLOGY DEPT [place], [place] [address] (Oscar escobedo) 11/04/2022 Office Visit Rheumatology Dante Freedman PA [facility] DR [place], [place] [address] (Wo rk) documented as of this [...] tolerability. documented in this encounter Care Teams Scientific Software Engineer Relationship Specialty Start Date End Date Violetta Sanford MD PCP - General 04/02/14 [address] [place] [address] documented as of this encounter
--- OUTSIDE RECORDS SUMMARY | 2022-06-16 12:22 | XMS_ITS | Encounter Summary ---
:1955 Author Organization [facility] [place] [address] Care Team Providers Name Role Phone Violetta Sanford MD Primary Care Provider Encounter Details Date Type Department Care Team Description 11/30/2021 Telephone Otolaryngology at [facility] [place] [phone] Social History Tobacco Use Types Packs/Day [...] Tyler Rojas MD [facility] Dr [address] [place], [place] [address] (Wo rk) 06/29/2022 Appointment Cardiology Violetta Sanford M D [address] [place], [place] [id number] ( rk) 06/30/2022 Infusion Hematology and Oncology 07/14/2022 Infusion Hematology and Oncology 07/28/2022 Infusion Hematology and Oncology 08/11/2022 Infusion Hematology and Oncology 08/16/2022 Office Visit Audiology Mindy Moody AUD [facility] AUDIOLOGY [place], [place] [address] (Wo rk) 11/04/2022 Office Visit Rheumatology Dante Freedman, DA [facility] RHEUMATOLOGY [place], [place] [address] ( rk) documented as of this encounter Visit Diagnoses Not on filedocumented in this encounter Care Teams Vp Compliance Relationship Specialty Start Date End Date Violetta Sanford MD PCP - General 04/02/14 [address] [place], [place] [address] documented as of this encounter
--- OUTSIDE RECORDS SUMMARY | 2022-06-16 12:22 | XMS_ITS | Encounter Summary ---
:1955 Author Organization [facility] [place] [address] Care Team Providers Name Role Phone Violetta Sanford MD Primary Care Provider Encounter Details Date Type Department Care Team Description 12/29/2021 Surgery Main Operating Room Iraj Scott MD MICROSCOPE USE ([facility] [address] [place] [address] [place] [address] [place] [address] [phone] Social History Tobacco Use Types Packs/Day Years [...] -You can reach the ENT clinic at [phone] for appointment questions. -The ENT triage nurse is available at [phone] -For urgent issues during evenings and weekends the ENT resident ammunition storekeeper can be reached through the main hospital bias machine operator at [phone] Currently Scheduled Appointments: Future Appointments and Orders Future Appointments and Orders Future Appointments Provider Department Dept Phone 12/30/2021 12:00 PM STJ INFUSION, ROOM Hematology Oncology at [facility] Arrive at: [facility] door at end of hallway [phone] 01/13/2022 10:00 AM STJ INFUSION, ROOM Hematology Oncology at [facility] Arrive at: [facility] door at end of hallway [phone] 01/13/2022 11:00 AM Margaret Purvsi APRN Hematology/Oncology at [facility] Arrive at: [facility] door at end of hallway [phone] 01/21/2022 11:00 AM Donell Hernandez MD Endocrinology at [facility] Arrive at: Director Speech Language Area 3A [phone] 01/27/2022 4:00 PM Patti Sanchez, AUD; AUDIOLOGY, VERONICA TWO Audiology at [facility] Arrive at: Director Speech Language Area 4F [phone] 01/27/2022 4:40 PM Iraj Scott MD Otolaryngology at [facility] Arrive at: Director Speech Language Area 4F [phone] 02/16/2022 3:00 PM Shira Ramírez APRN Gastroenterology at [facility] Arrive at: Director Speech Language Area 4L [phone] 06/21/2022 11:00 AM Shivam Rojas MD Neurology at [facility] Arrive at: Director Speech Language Area 3C [phone] documented in this encounter Medications at Time [...] by 6 kit 3 08/07/2021 Sensor Kit [facility].(Non-Drug; Combo Route) route every 14 days. Use to continuously monitor blood glucose. Scan at least 4 times per day. FreeStyle Gilberto 2 Use to continuously 1 each 0 2 Thurman Misc monitor blood glucose. Scan at least [...] 6 kit 3 01/13/2021 Day Sensor Kit [facility].(Non-Drug; Combo Route) route every 14 days. Use to continuously monitor blood glucose. Scan at least 5 times per day. DX: E11.65 darbepoetin cristy in Inject 300 mg as 0 polysorbat 10 mcg/0.4 directed as needed. mL Syringe cyanocobalamin, Take 100 mcg by mouth 0 Vitamin B-12, daily. (Vitamin B-12) 100 mcg Tablet Blood-Glucose Sensor by [facility].(Non-Drug; 0 (Dexcom G6 Sensor) Combo Route) route. Device Sensor, news camera operator andtransmitter metoprolol succinate Take 1 tablet by mouth 90 tablet 1 04/2020 XL (Toprol-XL) 50 mg daily. Tablet Sustained Release 24 hr amLODIPine (Norvasc) Take 0.5 tablets by 90 tablet 3 2019 10 mg Tablet mouth daily. fluticasone INSTILL 2 SPRAYS INTO 0 09/06/2019 propionate (FLONASE) EACH NOSTRIL ONCE A 50 mcg/actuation DAY NEEDED [place], Suspension albuterol (PROVENTIL) Take 3 mLs by [...] 100 each 3 03/09/2017 disposable, 29 gauge [facility].(Non-Drug; Combo x 1/2 Route) route 3 times [...] Devices by 4 each 0 12/02/2015 Supply [facility].(Non-Drug; Combo MiscIndications: S/P Route) route daily. 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 ofloxacin (Floxin) Place 4 drops into the 5 mL 0 12/2901/03/2022 0.3 % Drops left ear 2 times daily for 5 days. primidone (Mysoline) Take 1 tablet by [...] Gilberto 2 Sensor Kit 1 each by [facility].(Non-Drug; Combo Route) route every 14 days. Use to continuously monitor blood glucose. Scan at least 4 times per day. 6 kit 3 ??? FreeStyle Gilberto 2 Thurman [facility] Use to continuously monitor blood glucose. Scan [...] 14 Day Sensor Kit 1 each by [facility].(Non-Drug; Combo Route) route every 14 days. Use to continuously monitor blood glucose. Scan at least 5 times per day. DX: E11.65 6 kit 3 ??? darbepoetin cristy in polysorbat 10 mcg/0.4 mL Syringe Inject 300 mg as directed as needed. ??? cyanocobalamin, Vitamin B-12, (Vitamin B-12) 100 mcg Tablet Take 100 mcg by mouth daily. ??? Blood-Glucose Sensor (Dexcom G6 Sensor) Device by [facility].(Non-Drug; Combo Route) route. Sensor, news camera operator andtransmitter ??? metoprolol succinate XL (Toprol-XL) 50 mg Tablet Sustained Release 24 hr Take 1 tablet by mouth daily. 90 tablet 1 ??? amLODIPine (Norvasc) 10 mg Tablet Take 0.5 tablets by mouth daily. 90 tablet 3 ??? fluticasone propionate (FLONASE) 50 mcg/actuation [place], Suspension INSTILL 2 SPRAYS INTO EACH NOSTRIL [...] gauge x 1/2 Needle 1 Device by [facility].(Non- Drug; Combo Route) route 3 times daily. [...] Reported on 08/06/2016 ??? Miscellaneous Medical Supply [facility] 4 Devices by [facility].(Non-Drug; Combo Route) route daily. Rubber sheath for [...] Scott MD - 12/29/2021 7:51 AM EDT [facility] Operative Note Patient Name: Leroy Torres : [id number] MR#: [id number] Case Date: 12/29/2021 Surgeon: Surgeon(s) and Role: [...] Rojas MD [facility] Neurology [place], [place] [address] (Wo rk) 06/29/2022 Appointment Cardiology Violetta Sanford M D [address] [place] [address] (Wo rk) 06/30/2022 Infusion Hematology and Oncology 07/14/2022 Infusion Hematology and Oncology 07/28/2022 Infusion Hematology and Oncology 08/11/2022 Infusion Hematology and Oncology 08/16/2022 Office Visit Audiology Mindy Moody AUD [facility] AUDIOLOGY DEPT [place], [place] [address] (Oscar escobedo) 11/04/2022 Office Visit Rheumatology Dante Freedman PA [facility] RHEUMATOLOGY [place], [place] [address] (Oscar escobedo) documented as of this encounter Procedures Procedure [...] Signature POC Glucose 160 65 - 199 [facility] mg/dL [facility] Comment: Supplemental ranges: <140 mg/dL before meals <180 mg/dL all other times of the day Specimen Anatomical Collection Method Collection Time Receive d Time (Source) Location / / Volume Laterality Blood 12/29/2021 8:43 AM 8:43 EDT AM EDT Iraj Scott MD POINT OF CARE TEST ORDERABLE S Performing Organization Address City/State/[place] [address] Beta 2 Transferrin Body Fluid Other (12/29/2021 8:10 AM EDT) Analysis Performed At Patho logist Time Signature Beta-2 Trans Negative [facility] Comment: REFERENCE VALUE------ Negative, no beta-2 transferrin (spinal fluid) detected. ADDITIONAL INFORMATIO N This test was developed and its performa nce characteristics determined by [facility] in a manner co nsistent with CLIA requirements. This test has not been carlos ared or approved by the U.S. Food and Drug Administration. Test Performed by: [facility] [address] [id number] Recruitment Consultant: Van White M.D. Ph. D.; CLIA# [id number] Specimen Anatomical Collection Method Collection Time Receive d Time (Source) Location / / Volume Laterality Body Fld 12/29/2021 8:10 AM 2 5:20 EDT PM EDT Resulting Agency Comment Spec In Lab Iraj Scott MD BODY FLUIDS AND STOOLS ORDER STEPHANIE Performing Organization Address City/State/[place] [address] POCT Glucose (12/29/2021 6:35 AM EDT) P athologist Signature POC Glucose 185 65 - 199 [facility] mg/dL [facility] Comment: Supplemental ranges: <140 mg/dL before meals <180 mg/dL all other times of the day Specimen Anatomical Collection Method Collection Time Receive d Time (Source) Location / / Volume Laterality Blood 12/29/2021 6:35 AM 2 6:35 EDT AM EDT Iraj Scott MD POINT OF CARE TEST ORDERABLE S Performing Organization Address City/[facility]/[place] [address] documented in this encounter [...] Routine documented in this encounter Care Teams Pediatrician Managing Partner Relationship Specialty Start Date End Date Violetta Sanford MD PCP - General 04/02/14 [address] [place] [address] documented as of this encounter
--- OUTSIDE RECORDS SUMMARY | 2022-06-16 12:22 | XMS_ITS | Encounter Summary ---
:1955 Author Organization [facility] [place] [address] Care Team Providers Name Role Phone Violetta Sanford MD Primary Care Provider Encounter Details Date Type Department Care Team Description 01/18/2022 External Results [place] [address] Social History Tobacco Use Types Packs/Day [...] Tyler Rojas MD [facility] Neurology [place], [place] [address] (Wo rk) 06/29/2022 Appointment Cardiology Violetta Sanford M D [address] [place] [address] [address] [place], [place] [address] (Oscar rk) 06/30/2022 Infusion Hematology and Oncology 07/14/2022 Infusion Hematology and Oncology 07/28/2022 Infusion Hematology and Oncology 08/11/2022 Infusion Hematology and Oncology 08/16/2022 Office Visit Audiology Mindy Moody AUD [facility] AUDIOLOGY DEPT [place], [place] [address] (Wo rk) 11/04/2022 Office Visit Rheumatology Dante Freedman PA [facility] RHEUMATOLOGY [place], [place] [address] (Wo rk) documented as of [...] filedocumented in this encounter Care Teams Dental Laboratory Manager Relationship Specialty Start Date End Date Violetta Sanford MD PCP - General 04/02/14 [address] [place] [address] documented as of this encounter
--- OUTSIDE RECORDS SUMMARY | 2022-06-16 12:22 | XMS_ITS | Encounter Summary ---
:1955 Author Organization [facility] [address] Care Team Providers Name Role Phone Violetta Sanford MD Primary Care Provider Encounter Details Date Type Department Care Team Description 12/28/2021 Telephone Otolaryngology at [facility] Eulalia Urban, [place] [address] Social History Tobacco Use Types Packs/Day [...] Tyler Rojas MD [facility] Neurology [place], [place] [address] ( gregg) 06/29/2022 Appointment Cardiology Violetta Sanford M D [address] [place] [address] ( rk) 06/30/2022 Infusion Hematology and Oncology 07/14/2022 Infusion Hematology and Oncology 07/28/2022 Infusion Hematology and Oncology 08/11/2022 Infusion Hematology and Oncology 08/16/2022 Office Visit Audiology Mindy Moody AUD [facility] AUDIOLOGY DEPT [place], [place] [address] (Wo rk) 11/04/2022 Office Visit Rheumatology Dante Freedman PA [facility] RHEUMATOLOGY [place], [place] [address] (Wo rk) documented as of this encounter Visit Diagnoses Not on filedocumented in this encounter Care Teams Field Care Manager Relationship Specialty Start Date End Date Violetta Sanford MD PCP - General 04/02/[address] [place] [address] documented as of this encounter
--- OUTSIDE RECORDS SUMMARY | 2022-06-16 12:22 | XMS_ITS | Encounter Summary ---
:1955 Author Organization [facility] [place] [address] Care Team Providers Name Role Phone Violetta Sanford MD Primary Care Provider Reason for Visit Reason Comments Injections Aranesp. Treatment/Therapy Plan Authorization (Routine) - Authorized Specialty Diagnoses / Procedures Referred By Contact Refer red To Contact Hematology and Diagnoses CKD (chronic kidney disease) stage 4, GFR 15-29 ml/min Nicky Baez Elizabeth Oncology Procedures MD James NUR MD [address] HEMATOLOGY/ONCOLOGY [place], [place] DEPT. [id number] [place] [id number] Referral ID Status Reason Start Date Expiration Date Visits V isits Requested Authorized [id number] Authorized 10/08/2020 07/24/2023 99 99 Encounter Details Date Type Department Care Team Description 01/28/2022 Infusion Hematology Oncology at [facility] of chronic renal [facility] failure, stage 4 (severe) [address] [place], [place] [phone] Social History Tobacco Use [...] and BSA by Lindsay Lerma, SHEILA and [facility]. REACTIONS (DESCRIPTION, TIME, INTERVENTION AND EFFECTIVENESS) none ASSESSMENT Reuben was awake, alert and tolerated treatment well. Aranesp given in [place]. PLAN Return to clinic in 2 weeks. documented in this encounter Plan of Treatment Upcoming Encounters Date Type Specialty Care Team Description 06/16/2022 Infusion Hematology and Oncology 06/21/2022 Office Visit Neurology Tyler Rojas MD [facility] Neurology [place], [place] [address] (Oscar escobedo) 06/29/2022 Appointment Cardiology Violetta Sanford M D [address] [place] [address] (Oscar escobedo) 06/30/2022 Infusion Hematology and Oncology 07/14/2022 Infusion Hematology and Oncology 07/28/2022 Infusion Hematology and Oncology 08/11/2022 Infusion Hematology and Oncology 08/16/2022 Office Visit Audiology Mindy Moody AUD [facility] AUDIOLOGY [place], [place] [address] (Wo rk) 11/04/2022 Office Visit Rheumatology Dante Freedman PA [facility] RHEUMATOLOGY [place], [place] [address] (Wo rk) documented as of [...] (CKD) documented in this encounter Care Teams [employer] Relationship Specialty Start Date End Date Violetta Sanford MD PCP - General 04/02/14 [address] [place] [address] documented as of this encounter
--- OUTSIDE RECORDS SUMMARY | 2022-06-16 12:22 | XMS_ITS | Encounter Summary ---
:1955 Author Organization [facility] [place] [address] Care Team Providers Name Role Phone Violetta Sanford MD Primary Care Provider Encounter Details Date Type Department Care Team Description 12/25/2021 Ancillary Procedure Radiology Library at Violetta Sanford MD [facility] [address] [phone] (Oscar escobedo) Social History Tobacco Use Types [...] MD [facility] Neurology [place], [place] [address] (Wo rk) 06/29/2022 Appointment Cardiology Violetta Sanford M D [address] [address] (Wo rk) 06/30/2022 Infusion Hematology and Oncology 07/14/2022 Infusion Hematology and Oncology 07/28/2022 Infusion Hematology and Oncology 08/11/2022 Infusion Hematology and Oncology 08/16/2022 Office Visit Audiology Mindy Moody AUD [facility] AUDIOLOGY DEPT [place], [place] [address] (Wo rk) 11/04/2022 Office Visit Rheumatology Dante Freedman PA [facility] RHEUMATOLOGY [place], [place] [address] (Wo rk) documented as of [...] Organization Address City/State/ZIP Code Phon e Number [place], [place] documented in this encounter Visit Diagnoses Not on filedocumented in this encounter Care Teams Computer Systems Information Director Relationship Specialty Start Date End Date Violetta Sanford MD PCP - General 04/02/14 [address] [place] [address] documented as of this encounter
--- OUTSIDE RECORDS SUMMARY | 2022-06-16 12:22 | XMS_ITS | Encounter Summary ---
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 -The ENT triage nurse is available at [phone] -For urgent issues during evenings and weekends the ENT resident senior radiation therapist can be reached through the main hospital resaw carriage operator at [phone] Currently Scheduled Appointments: Future Appointments and Orders Future Appointments and Orders Future Appointments Provider Department Dept Phone 12/30/2021 12:00 PM STJ INFUSION, ROOM Hematology Oncology at [facility] Arrive at: [facility] door at end of hallway [phone] 01/13/2022 10:00 AM STJ INFUSION, ROOM Hematology Oncology at [facility] Arrive at: [facility] door at end of hallway [phone] 01/13/2022 11:00 AM Margaret Purvis APRN Hematology/Oncology at [facility] Arrive at: [facility] door at end of hallway [phone] 01/21/2022 11:00 AM Donell Hernandez MD Endocrinology at [facility] Arrive at: Logistics Engineering Manager Area 3A [phone] 01/27/2022 4:00 PM Patti Sanchez, AUD; AUDIOLOGY, VERONICA TWO Audiology at [facility] Arrive at: Logistics Engineering Manager Area 4F [phone] 01/27/2022 4:40 PM Iraj Scott MD Otolaryngology at [facility] Arrive at: Logistics Engineering Manager Area 4F [phone] 02/16/2022 3:00 PM Shira Ramírez APRN Gastroenterology at [facility] Arrive at: Logistics Engineering Manager Area 4L [phone] 06/21/2022 11:00 AM Shivam Rojas MD Neurology at [facility] Arrive at: Logistics Engineering Manager Area 3C [phone] documented in this encounter Medications at Time [...] Use to continuously 1 each 0 2 Sadler Misc monitor blood glucose. Scan at least [...] B-12) 100 mcg Tablet Blood-Glucose Sensor by Misc.(Non-Drug; 0 (Dexcom G6 Sensor) Combo Route) route. Device Sensor, clinical laboratory manager andtransmitter metoprolol succinate Take 1 tablet by mouth 90 tablet 1 04/2020 XL (Toprol-XL) 50 mg daily. Tablet Sustained Release 24 hr amLODIPine (Norvasc) Take 0.5 tablets by 90 tablet 3 2019 10 mg Tablet mouth daily. fluticasone INSTILL 2 SPRAYS INTO 0 09/06/2019 propionate (FLONASE) EACH NOSTRIL ONCE A 50 mcg/actuation DAY NEEDED [place], Suspension albuterol (PROVENTIL) Take 3 mLs by [...] Devices by 4 each 0 12/02/2015 Supply [facility].(Non-Drug; Combo MiscIndications: S/P Route) route daily. bilateral [...] documented as of this encounter Progress Notes Rayno, Karen E, RN - 12/29/2021 9:56 AM EDT 0836: [...] Gilberto 2 Sensor Kit 1 each by [facility].(Non-Drug; Combo Route) route every 14 days. Use to continuously monitor blood glucose. Scan at least 4 times per day. 6 kit 3 ??? FreeStyle Gilberto 2 Sadler [facility] Use to continuously monitor blood [...] 14 Day Sensor Kit 1 each by [facility].(Non-Drug; Combo Route) route every 14 [...] Blood-Glucose Sensor (Dexcom G6 Sensor) Device by [facility].(Non-Drug; Combo Route) route. Sensor, clinical laboratory manager andtransmitter ??? metoprolol succinate XL (Toprol-XL) 50 mg Tablet Sustained Release 24 hr Take 1 tablet by mouth daily. 90 tablet 1 ??? amLODIPine (Norvasc) 10 mg Tablet Take 0.5 tablets by mouth daily. 90 tablet 3 ??? fluticasone propionate (FLONASE) 50 mcg/actuation [place], Suspension INSTILL 2 SPRAYS INTO EACH NOSTRIL [...] gauge x 1/2 Needle 1 Device by [facility].(Non- Drug; Combo Route) route 3 [...] Reported on 08/06/2016 ??? Miscellaneous Medical Supply [facility] 4 Devices by [facility].(Non-Drug; Combo Route) route daily. Rubber [...] Operative Note Patient Name: Leroy Torres : [id number] MR#: [id number] Case Date: 12/29/2021 Surgeon: Surgeon(s) and Role: [...] Rojas MD [facility] Neurology [place], [place] [address] ( gregg) 06/29/2022 Appointment Cardiology Violetta Sanford M D [facility] [address] [place] [address] ( gregg) 06/30/2022 Infusion Hematology and Oncology 07/14/2022 Infusion Hematology and Oncology 07/28/2022 Infusion Hematology and Oncology 08/11/2022 Infusion Hematology and Oncology 08/16/2022 Office Visit Audiology Mindy Moody AUD [facility] AUDIOLOGY DEPT [place], [place] [address] ([facility]) 11/04/2022 Office Visit Rheumatology Dante Freedman PA [facility] RHEUMATOLOGY [place], [place] [address] (Wo rk) documented as of [...] 7:32 Chronic mucoid otitis OF MIDDLE EAR (VU AM EDT media of lef t ear [...] Signature POC Glucose 160 65 - 199 [facility] mg/dL [facility] Comment: Supplemental ranges: <140 mg/dL before meals <180 mg/dL all other times of the day Specimen Anatomical Collection Method Collection Time Receive d Time (Source) Location / / Volume Laterality Blood 12/29/2021 8:43 AM 8:43 EDT AM EDT Iraj Scott MD POINT OF CARE TEST ORDERABLE S Performing Organization Address City/State/Z[place] [address] Beta 2 Transferrin Body Fluid Other (12/29/2021 8:10 AM EDT) Analysis Performed At Patho logist Time Signature Beta-2 Trans Negative [facility] Comment: REFERENCE VALUE------ Negative, no beta-2 transferrin (spinal fluid) detected. ADDITIONAL INFORMATIO N This test was developed and its performa nce characteristics determined by [facility] in a manner co nsistent with CLIA requirements. This test has not been carlos ared or approved by the U.S. Food and Drug Administration. Test Performed by: [facility] [address] [place] [address] 98 L D Rn: Van White M.D. Ph. D.; CLIA# [id number] Specimen Anatomical Collection Method Collection Time Receive d Time (Source) Location / / Volume Laterality Body Fld 12/29/2021 8:10 AM 2 5:20 EDT PM EDT Resulting Agency Comment Spec In Lab Iraj Scott MD BODY FLUIDS AND STOOLS ORDER STEPHANIE Performing Organization Address City/State/ZIP [place] [address] POCT Glucose (12/29/2021 6:35 AM EDT) P athologist Signature POC Glucose 185 65 - 199 [facility] mg/dL [facility] Comment: Supplemental ranges: <140 mg/dL before meals <180 mg/dL all other times of the day Specimen Anatomical Collection Method Collection Time Receive d Time (Source) Location / / Volume Laterality Blood 12/29/2021 6:35 AM 2 6:35 EDT AM EDT Iraj Scott MD POINT OF CARE TEST ORDERABLE S Performing Organization Address City/State/ZIP Code Phon e Number [place] [id number] documented in this encounter [...] Routine documented in this encounter Care Teams Police Communications Operator Relationship Specialty Start Date End Date Violetta Sanford MD PCP - General 04/02/14 [address] [place] [address] documented as of this encounter
--- OUTSIDE RECORDS SUMMARY | 2022-06-16 12:22 | XMS_ITS | Encounter Summary ---
:1955 Author Organization [facility] Address [address] [address] Care Team Providers Name Role Phone Violetta Sanford MD Primary Care Provider Encounter Details Date Type Department Care Team Description 02/02/2022 Orders Only Solid Organ Torsten Savage, H/O kidney transplant; Transplant at [facility] DIRECT[facility] current use of imm unosuppressive drug; [facility] Vitamin D deficiency; Drive Anemia of chronic renal fail ure, stage 4 (severe) [id number] Social History Tobacco Use Types Packs/Day Years [...] MD [facility] Neurology [phone] (Wo rk) 06/29/2022 Appointment Cardiology Violetta Sanford M D [address] [place] [address] (Oscar escobedo) 06/30/2022 Infusion Hematology and Oncology 07/14/2022 Infusion Hematology and Oncology 07/28/2022 Infusion Hematology and Oncology 08/11/2022 Infusion Hematology and Oncology 08/16/2022 Office Visit Audiology Mindy Moody AUD [facility] AUDIOLOGY [place], [place] [address] (Wo rk) 11/04/2022 Office Visit Rheumatology Dante Freedman [facility] RHEUMATOLOGY [place], [place] [address] (Wo rk) Scheduled Orders Name Type Priority Associated Diagnoses Order S chedule Transplant: Yearly Lab Routine H/O kidney tr ansplant Expected: 02/03/2022 lab request - [facility] current use of (A pproximate), External Results immunosuppressi ve drug Expires: 02/02/2023 Vitamin D defici ency Anemia of chronic renal failure, stage 4 (severe) documented as of this encounter Visit Diagnoses Diagnosis H/O kidney transplant 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
--- OUTSIDE RECORDS SUMMARY | 2022-06-16 12:23 | XMS_ITS | Encounter Summary ---
:1955 Author Organization [facility] [place] [address] Care Team Providers Name Role Phone Violetta Sanford MD Primary Care Provider Encounter Details Date Type Department Care Team Description 09/16/2021 [place] [phone] Social History Tobacco Use Types Packs/Day [...] Use to continuously 1 each 0 2 [place] Misc monitor blood glucose. Scan at least [...] 6 kit 3 01/13/2021 Day Sensor Kit [facility].(Non-Drug; Combo Route) route every 14 days. Use to continuously monitor blood glucose. Scan at least 5 times per day. DX: E11.65 darbepoetin cristy in Inject 300 mg as 0 polysorbat 10 mcg/0.4 directed as needed. mL Syringe cyanocobalamin, Take 100 mcg by mouth 0 Vitamin B-12, daily. (Vitamin B-12) 100 mcg Tablet Blood-Glucose Sensor by [facility].(Non-Drug; 0 (Dexcom G6 Sensor) Combo Route) route. Device Sensor, senior energy market coordinator andtransmitter metoprolol succinate Take 1 tablet by mouth 90 tablet 1 04/2020 XL (Toprol-XL) 50 mg daily. Tablet Sustained Release 24 hr amLODIPine (Norvasc) Take 0.5 tablets by 90 tablet 3 2019 10 mg Tablet mouth daily. fluticasone INSTILL 2 SPRAYS INTO 0 09/06/2019 propionate (FLONASE) EACH NOSTRIL ONCE A 50 mcg/actuation DAY NEEDED [place], Suspension albuterol (PROVENTIL) Take 3 mLs by [...] 100 each 3 03/09/2017 disposable, 29 gauge [facility].(Non-Drug; Combo x 1/2 Route) route 3 times [...] Devices by 4 each 0 12/02/2015 Supply [facility].(Non-Drug; Combo MiscIndications: S/P Route) route daily. 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 CellCept 250 mg TAKE 2 CAPSULES [...] Rojas MD [facility] Neurology [place], [place] [phone] (Wo rk) 06/29/2022 Appointment Cardiology Violetta Sanford M D [address] [place] [address] (Wo rk) 06/30/2022 Infusion Hematology and Oncology 07/14/2022 Infusion Hematology and Oncology 07/28/2022 Infusion Hematology and Oncology 08/11/2022 Infusion Hematology and Oncology 08/16/2022 Office Visit Audiology Mindy Moody AUD [facility] AUDIOLOGY DEPT [place], [place] [address] (Wo rk) 11/04/2022 Office Visit Rheumatology Dante Freedman PA [facility] RHEUMATOLOGY [place], [place] [address] (Wo rk) documented as of this encounter Procedures Procedure Name Priority Date/Time Associated Diagnosis Comme nts TACROLIMUS LEVEL Routine 09/16/2021 12:46 PM Resu lts for this EST procedure are i n the results section. documented in this encounter Results Tacrolimus level (09/16/2021 12:46 PM EST) athologist Signature Tacrolimus Lvl 4.2 ng/mL [facility] Comment: [...] Organization Address City/State/[place] [address] documented in this encounter Visit Diagnoses Not on filedocumented in this encounter Care Teams Beta Tester Relationship Specialty Start Date End Date Violetta Sanford MD PCP - General 04/02/14 [address] [place] [address] documented as of this encounter
--- OUTSIDE RECORDS SUMMARY | 2022-06-16 12:23 | XMS_ITS | Encounter Summary ---
:1955 Author Organization [facility] [place] [address] Care Team Providers Name Role Phone Violetta Sanford MD Primary Care Provider Encounter Details Date Type Department Care Team Description 10/05/2021 Office Visit Solid Organ [place], H/O kidney tilley splant; Transplant at [facility] Alejo Desir MD Other complication of kidney transplant; [facility] promised state due to drug therapy; [facility] CKD (chronic kidney disease) stage 4, GF R 15-29 ml/min; [place], [place] TRANSPLANT Anemia of chron ic renal failure, stage 4 (severe) [id number] SURGERY [phone] [place] [address] Social History Tobacco Use Types Packs/Day Years [...] Leroy Torres Transplant Date: 02/29/2008 Organ(s) Kidney [place] organ diagnosis: Diabetes Mellitus - Type II [...] to 8.7 mg/dL. I will contact Dr. Sasha to see if a BMBx is necessary [...] new allergies. ?? He was admitted to [facility] in October 2018??for fluid overload and??A [...] establish care for CKD and he requested [facility]. I will refer to CKD clinic. He [...] BELOW-KNEE performed by HENNA GAMINO JR at [facility] MAIN OR ??? PRO LAP, APPENDECTOMY ?? 06/16/2013 ?? LAPAROSCOPIC APPENDECTOMY performed by Angel Mccann MD at [facility] MAIN OR ??? US RENAL TRANSPLANT LEFT Left 06/26/2019 ?? US Renal Transplant Left 06/26/2019 [facility] RAD ULTRASOUND ?? Healthcare maintenance for a [...] age 48 - Normal in 2017 in [facility] Monthly self skin exam, daily spf [...] done 03/21/2015 which was normal. Due again!! [place] kidney ultrasound looking for renal cell CA, [...] Gilberto 2 Sensor Kit, 1 each by [facility].(Non-Drug; Combo Route) route every 14 days. Use tocontinuously monitor blood glucose. Scan at least 4 times per day., Disp: 6 kit, Rfl: 3 ??? FreeStyle Gilberto 2 [place] [facility], Use to continuously monitor blood glucose. Scan [...] 14 Day Sensor Kit, 1 each by [facility].(Non-Drug; Combo Route) route every 14 days. Use to continuously monitor blood glucose. Scan at least 5 times per day. DX: E11.65, Disp: 6 kit, Rfl: 3 ??? cyanocobalamin, Vitamin B-12, (Vitamin B-12) 100 mcg Tablet, Take 100 mcg by mouth daily., Disp:, Rfl: ??? Blood-Glucose Sensor (Dexcom G6 Sensor) Device, by [facility].(Non-Drug; Combo Route) route. Sensor, professor of french andtransmitter, Disp: , Rfl: ??? metoprolol succinate XL (Toprol-XL) 50 mg Tablet Sustained Release 24 hr, Take 1 tablet by mouthdaily., Disp: 90 tablet, Rfl: 1 ??? amLODIPine (Norvasc) 10 mg Tablet, Take 0.5 tablets by mouth daily., Disp: 90 tablet, Rfl: 3 ??? fluticasone propionate (FLONASE) 50 mcg/actuation [place], Suspension, INSTILL 2 SPRAYS INTO EACH NOSTRIL [...] gauge x 1/2 Needle, 1 Device by [facility].(Non- Drug; Combo Route) route 3 times daily., [...] Disp: , Rfl: ??? Miscellaneous Medical Supply [facility], 4 Devices by [facility].(Non-Drug; Combo Route) route daily. Rubbersheath for leg [...] from 10/05/2021 in Solid Organ Transplant at [facility] Weight 129.7 kg (286 lb) Temp 37.3 [...] Yellow Yellow Appearance UA Clear Clear Spec [place] UA 1.005 - 1.030 1.014 PH UA [...] 30 min in direct face to face child and family counselor. documented in this encounter Plan of Treatment Upcoming Encounters Date Type Specialty Care Team Description 06/16/2022 Infusion Hematology and Oncology 06/21/2022 Office Visit Neurology Tyler Rojas MD [facility] Neurology [place], [place] [phone] (Wo rk) 06/29/2022 Appointment Cardiology Violetta Sanford M D [facility] ALONDRA Miller TE [address] [place] [phone] (Wo rk) 06/30/2022 Infusion Hematology and Oncology 07/14/2022 Infusion Hematology and Oncology 07/28/2022 Infusion Hematology and Oncology 08/11/2022 Infusion Hematology and Oncology 08/16/2022 Office Visit Audiology Mindy Moody AUD [facility] AUDIOLOGY DEPT [place], [place] [address] (Wo rk) 11/04/2022 Office Visit Rheumatology Dante Freedman PA [facility] RHEUMATOLOGY [place], [place] [address] (Wo rk) Scheduled Orders Name [...] (03/17/2022 11:49 AM EDT) Analysis Performed At [facility] logist Time Signature U Creatinine 70 mg/dL [facility] U Protein Ran 333 (H) 0 - 12 [facility] Prot/Cre Ratio 4.8 ratio [facility] Specimen Anatomical Collection Method Collection Time Receive d Time (Source) Location / / Volume Laterality Urine 03/17/2022 11:49 03/17/2022 AM EDT 12:01 PM EDT Resulting Agency Comment Spec In Lab Alejo Garnett MD URINE ORDERABLES Performing Organization Address City/State/[place] [address] (ABNORMAL) Urinalysis with reflex Culture (03/17/2022 11:49 AM EDT) [facility] gist Method Time Signature Glucose UA 100 (A) Negative [facility] mg[facility]dL [facility] Protein UA >=300 (A) Negative [facility] mg/dL [facility] Bilirubin UA Negative Negative [facility] mg/dL [facility] Comment: Clinical correlation required for positi ve Urine Bilirubin results as false positive may occur with some drugs and d rug related products. If a false positive is suspected a serum total bili reyna should be considered if clinically indicated. Urobilinogen UA Normal Normal mg/dL [facility] pH UA 6.0 5.0 - 8.0 [facility] Blood UA Negative Negative mg/dL [facility] Ketones UA Negative Negative mg/dL [facility] Nitrite UA Negative Negative [facility] Leukocytes UA Negative Negative [facility] LABORATORY Appearance UA Clear Clear [facility] Spec [place] UA 1.016 1.005 - 1.030 [facility] Color UA Yellow Yellow [facility] Culture Reflexed No [facility] Specimen Anatomical Collection Method Collection Time Receive d Time (Source) Location / / Volume Laterality Clean Catch 03/17/2022 11:49 03/17/2022 Urine AM EDT 11:59 AM EDT Resulting Agency Comment Spec In Lab Alejo Garnett MD URINE ORDERABLES Performing Organization Address City/State/[place] [address] Tacrolimus level (03/17/2022 11:44 AM EDT) P athologist Signature Tacrolimus Lvl 4.4 ng/mL [facility] Comment: Trough therapeutic range is [...] Address City/State/ZIP Code Phon e Number [address] Uric acid (03/17/2022 11:44 AM EDT) P athologist Signature Uric Acid 8.1 3.5 - 8.5 [facility] Specimen Anatomical Collection Method Collection Time Receive d Time (Source) Location / / Volume Laterality Blood 03/17/2022 11:44 03/17/2022 AM EDT 12:08 PM EDT Resulting Agency Comment Spec In Lab Alejo Garnett MD CHEMISTRY ORDERABLES Performing Organization Address City/[facility]/ZIP Code Phon e Number [address] Phosphorus (03/17/2022 11:44 AM EDT) P athologist Signature Phosphorus 3.4 2.5 - 4.5 [facility] mg/dL [facility] Specimen Anatomical Collection Method Collection Time Receive d Time (Source) Location / / Volume Laterality Blood 03/17/2022 11:44 03/17/2022 AM EDT 12:08 PM EDT Resulting Agency Comment Spec In Lab Alejo Garnett MD CHEMISTRY ORDERABLES Performing Organization Address City/[facility]/ZIP Code Phon e Number [address] Magnesium (03/17/2022 11:44 AM EDT) P athologist Signature Magnesium 0.71 0.69 - 1.07 [facility] mmol/L [facility] Specimen Anatomical Collection Method Collection Time Receive d Time (Source) Location / / Volume Laterality Blood 03/17/2022 11:44 03/17/2022 AM EDT 12:08 PM EDT Resulting Agency Comment Spec In Lab Alejo Garnett MD CHEMISTRY ORDERABLES Performing Organization Address City/State/[place] [address] Cholesterol, total (03/17/2022 11:44 AM EDT) athologist Signature Chol, Total 91 mg/dL [facility] Comment: Lower Risk: <200 mg/dL Average Risk: 200-239 mg/dL Higher Risk: >ok=986 mg/dL Lipid Interpretation See Note [facility] Comment: Lipid management should be guided by a p atient? s ASCVD risk, goals and preferences. ACC/AHA Guidelines recommend high intens ity statin if clinical ASCVD or LDL greater than or equal to 190 mg/dL. [email or web address]/CUQ-FNU-Xjeiveuko Adults aged 40-75 with LDL 70-189 mg/dL should have their 10 year ASCVD risk estimated with the ACC/AHA ASCVD risk es timator http://tools.acc.org/EEJON-Uvpo-Wygkotfd r/ Statin should be discussed if risk [...] City/State/ZIP Code Phon e [place] [address] (ABNORMAL) Comprehensive metabolic panel (non-fasting) (03/17/2022 11:44 AM EDT) athologist Signature Glucose Lvl 116 65 - 199 [facility] mg/dL [facility] Comment: Diabetes: >=200 mg/dL plus symp toms BUN 29 (H) 10 - 20 mg/dL [facility] Creatinine 3.16 (H) 0.80 - 1.50 mg/dL [facility] Sodium 139 135 - [...] 108 (H) 98 - 107 mmol/L [facility] CO2 21 (L) 22 - 31 mmol/L [facility] Anion Gap 10 5 - 15 mmol/L [facility] Calcium 8.8 8.5 - 10.5 mg/dL [facility] Total Protein 6.9 6.1 - 8.0 g/dL [facility] Albumin 3.2 3.2 - 5.2 g/dL [facility] AST 16 0 - 39 unit/L [facility] ALT 15 0 - 55 unit/L [facility] Alk Phos 131 (H) 40 - 130 unit/L [facility] Total Bilirubin 0.2 0.2 - 1.3 mg/dL [facility] Estimated GFR 21 (L) >=60 mL/min/1.73 m?? [facility] Comment: This patient's estimated GFR [...] Garnett MD CHEMISTRY ORDERABLES Performing Organization Address City/[facility]/[place] [address] (ABNORMAL) Reticulocyte Count (03/17/2022 11:44 AM EDT) Patholo gist Method Time Signature Retic Ct % 2.1 0.7 - 2.6 [facility] % [facility] Retic Ct Abs 0.070 0.030 - [facility] 0.120 [facility] x10(6)/ HOSPITAL L LABORATORY Immature Retic% 22.5 (H) 0.0 - [facility] 15.6 % [facility] Reticulated Hgb 25.9 (L) 31.3 - [facility] 40.2 pg [facility] Specimen Anatomical Collection Method Collection Time Receive d Time (Source) Location / / Volume Laterality Blood 03/17/2022 11:44 03/17/2022 AM EDT 12:08 PM EDT Resulting Agency Comment Spec In Lab Alejo Garnett MD HEMATOLOGY ORDERABLES Performing Organization Address City/[facility]/[place] [address] COVID-19 Renzo Antibody (10/05/2021 8:39 AM EDT) Analysis Performed At Patho logist Time Signature SARS-CoV-2 Not Perf [facility] Renzo Ab [facility] Comment: This is a total antibody [...] be due to a past infection with dhk-SCUF-YhO-2 coronavirus strains, such as coronavirus HKU1, NL63, OC43, or 229E. This test was performed using the Elecsy s Cvtc-DDLZ-HvV-2 S total antibody assay on the [employer] Kendell e801 analyzer. This serology test is available following FDA Emergency Use Authorizatio n, however it has not been reviewed by the FDA, nor is it FDA cleared or approv ed. The performance characteristics of this test were determined by the [facility] ent of Pathology and Laboratory Medicine at [facility]. The laboratory is certified under [...] fact sheets at the following FDA website: https://www.fda.gov/medical-devices/wwbzbekxnud-rqerhbf-0742-eectd-83-bxpypkdvu- zmp-rrzpdtaxbcachs-ozskypy-devices/mbztm-pdfbgcmechg-wlwd Specimen Anatomical Collection Method Collection Time Receive d Time (Source) Location / / Volume Laterality Blood 10/05/2021 8:39 AM EDT 11:24 AM EDT Alejo Garnett MD CHEMISTRY ORDERABLES Performing Organization Address City/State/ZIP Code Phon e Number [place] [phone] [address] Tacrolimus level (10/05/2021 8:39 AM EDT) P athologist Signature Tacrolimus Lvl 3.5 ng/mL [facility] Comment: Trough therapeutic range is [...] Garnett MD CHEMISTRY ORDERABLES Performing Organization Address City/[facility]/ZIP Code Phon e Number [address] Uric acid (10/05/2021 8:39 AM EDT) athologist Signature Uric Acid 7.0 3.5 - 8.5 [facility] mg/dL [facility] Specimen Anatomical Collection Method Collection Time Receive d Time (Source) Location / / Volume Laterality Blood 10/05/2021 8:39 AM 2 8:52 EDT AM EDT Resulting Agency Comment Spec In Lab Alejo Garnett MD CHEMISTRY ORDERABLES Performing Organization Address City/[facility]/ZIP Code Phon e Number [address] Phosphorus (10/05/2021 8:39 AM EDT) P athologist Signature Phosphorus 2.9 2.5 - 4.5 [facility] mg/dL [facility] Specimen Anatomical Collection Method Collection Time Receive d Time (Source) Location / / Volume Laterality Blood 10/05/2021 8:39 AM 2 8:52 EDT AM EDT Resulting Agency Comment Spec In Lab Alejo Garnett MD CHEMISTRY ORDERABLES Performing Organization Address City/[facility]/ZIP Code Phon e Number [address] Magnesium (10/05/2021 8:39 AM EDT) athologist Signature Magnesium 0.78 0.69 - 1.07 [facility] mmol/L [facility] Specimen Anatomical Collection Method Collection Time Receive d Time (Source) Location / / Volume Laterality Blood 10/05/2021 8:39 AM 2 8:52 EDT AM EDT Resulting Agency Comment Spec In Lab Alejo Garnett MD CHEMISTRY ORDERABLES Performing Organization Address City/State/[place] [address] Cholesterol, total (10/05/2021 8:39 AM EDT) athologist Signature Chol, Total 73 mg/dL [facility] Comment: Lower Risk: <200 mg/dL Average Risk: 200-239 mg/dL Higher Risk: >gp=954 mg/dL Lipid Interpretation See Note [facility] Comment: Lipid management should be guided by a p atient? s ASCVD risk, goals and preferences. ACC/AHA Guidelines recommend high intens ity statin if clinical ASCVD or LDL greater than or equal to 190 mg/dL. [email or web address]/YWB-XWN-Dxtsflkud Adults aged 40-75 with LDL 70-189 mg/dL should have their 10 year ASCVD risk estimated with the ACC/AHA ASCVD risk es timator http://tools.acc.org/DFNAB-Yfqe-Jpoeiyif r/ Statin should be discussed if risk [...] Address City/State/Z[place] [address] (ABNORMAL) Protein/Creatinine Ratio, urine (10/05/2021 5:20 AM EDT) Analysis Performed At Patho logist Time Signature U Creatinine 69 mg/dL [facility] U Protein Ran 104 (H) 0 - 12 [facility] mg/dL [facility] Prot/Cre Ratio 1.5 ratio [facility] Specimen Anatomical Collection Method Collection Time Receive d Time (Source) Location / / Volume Laterality Urine 10/05/2021 5:20 AM 8:55 EDT AM EDT Resulting Agency Comment Spec In Lab Alejo Garnett MD URINE ORDERABLES Performing Organization Address City/[facility]/ZIP [place] [address] (ABNORMAL) Urinalysis with reflex Culture (10/05/2021 5:20 AM EDT) Patholo gist Method Time Signature Glucose UA Negative Negative [facility] mg/dL [facility] Protein UA 100 (A) Negative [facility] mg/dL [facility] Bilirubin UA Negative Negative [facility] mg/dL [facility] Comment: Clinical correlation required for positi ve Urine Bilirubin results as false positive may occur with some drugs and d rug related products. If a false positive is suspected a serum total bili reyna should be considered if clinically indicated. Urobilinogen UA Normal Normal mg/dL [facility] pH UA 6.0 5.0 - 8.0 [facility] Blood UA Negative Negative mg/dL [facility] Ketones UA Negative Negative mg/dL [facility] Nitrite UA Negative Negative [facility] Leukocytes UA Negative Negative [facility] LABORATORY Appearance UA Clear Clear [facility] Spec [place] UA 1.014 1.005 - 1.030 [facility] Color UA Yellow Yellow [facility] Culture Reflexed No [facility] Specimen Anatomical Collection Method Collection Time Receive d Time (Source) Location / / Volume Laterality Clean Catch 10/05/2021 5:20 AM 8:56 Urine EDT AM EDT Resulting Agency Comment Spec In Lab Alejo Garnett MD URINE ORDERABLES Performing Organization Address City/State/[place] [address] documented in this encounter Visit Diagnoses Diagnosis H/O kidney transplant Kidney replaced by transplant Other complication of kidney transplant 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
--- OUTSIDE RECORDS SUMMARY | 2022-06-16 12:23 | XMS_ITS | Encounter Summary ---
:1955 Author Organization [facility] Address [facility] [place] [address] Care Team Providers Name Role Phone Violetta Sanford MD Primary Care Provider Reason for Visit Consultation (Routine) - Closed Specialty Diagnoses / Procedures Referred By Contact Refer red To Contact Otolaryngology Diagnoses Hearing loss of left ear, unspecified hearing loss type Donell Hernandez MD [facility] Otolaryngology [address] [place] [address] [place] [address] 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 Bone-conduction thresholds essentially symmetric. Speech operator receptionist thresholds at 20 dB for the [...] Gilberto 2 Sensor Kit 1 each by [facility]Non-Drug; Combo Route) route every 14 days. Use to continuously monitor blood glucose. Scan at least 4 times per day. 6 kit 3 ??? FreeStyle Gilberto 2 [place] [facility] Use to continuously monitor blood glucose. Scan [...] 14 Day Sensor Kit 1 each by [facility].(Non-Drug; Combo Route) route every 14 days. Use to continuously monitor blood glucose. Scan at least 5 times per day. DX: E11.65 6 kit 3 ??? darbepoetin cristy in polysorbat 10 mcg/0.4 mL Syringe Inject 300 mg as directed as needed. ??? cyanocobalamin, Vitamin B-12, (Vitamin B-12) 100 mcg Tablet Take 100 mcg by mouth daily. ??? Blood-Glucose Sensor (Dexcom G6 Sensor) Device by [facility].(Non-Drug; Combo Route) route. Sensor, manager material andtransmitter ??? metoprolol succinate XL (Toprol-XL) 50 mg Tablet Sustained Release 24 hr Take 1 tablet by mouth daily. 90 tablet 1 ??? amLODIPine (Norvasc) 10 mg Tablet Take 0.5 tablets by mouth daily. 90 tablet 3 ??? fluticasone propionate (FLONASE) 50 mcg/actuation [place], Suspension INSTILL 2 SPRAYS INTO EACH NOSTRIL [...] Reported on 08/06/2016 ??? Miscellaneous Medical Supply [facility] Biopsy Bone Marrow 10/22/2021 Richar Lo MD [facility] RAD CT SCAN ??? 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 PRO LAP, APPENDECTOMY 06/16/2013 LAPAROSCOPIC APPENDECTOMY performed by Angel Mccann MD at [facility] MAIN OR ??? US RENAL TRANSPLANT LEFT Left 06/26/2019 US Renal Transplant Left 06/26/2019 [facility] RAD ULTRASOUND Family and Social History Family History: No family history on file. Social History: Lives [place] [facility] [phone] Social History Socioeconomic History ??? Marital status: [...] 06/21/2022 Office Visit Neurology Tyler Rojas MD [facility] Medical [facility] Neurology [place], [place] [phone] (Wo rk) 06/29/2022 Appointment Cardiology Violetta Sanford M D [facility] [address] [place] [address] (Wo rk) 06/30/2022 Infusion Hematology and Oncology 07/14/2022 Infusion Hematology and Oncology 07/28/2022 Infusion Hematology and Oncology 08/11/2022 Infusion Hematology and Oncology 08/16/2022 Office Visit Audiology Mindy Moody AUD [facility] [place]IOLOGY [place], [place] [address] (Wo rk) 11/04/2022 Office Visit Rheumatology Dante Freedman PA 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
--- OUTSIDE RECORDS SUMMARY | 2022-06-16 12:23 | XMS_ITS | Encounter Summary ---
:1955 Author Organization [facility] Address [facility] [place] [address] Care Team Providers Name Role Phone Violetta Sanford MD Primary Care Provider Reason for Visit Reason Onset Date Comments Medication Refill 10/26/2021 Encounter Details Date Type Department Care Team Description 10/26/2021 Refill Neurology at [facility] Shivam Rojas MD [facility] [place] [address] Neurology [phone] [place], [place] [phone] (Wo rk) Social History [...] Please call to discuss: Ronald Mancini RN, [facility] Neurology, . Telephone Encounter - Ronald Mancini [...] Rojas MD [facility] Neurology [place], [place] [phone] (Wo rk) 06/29/2022 Appointment Cardiology Violetta Sanford M D [address] [place], [place] [id number] (Wo rk) 06/30/2022 Infusion Hematology and Oncology 07/14/2022 Infusion Hematology and Oncology 07/28/2022 Infusion Hematology and Oncology 08/11/2022 Infusion Hematology and Oncology 08/16/2022 Office Visit Audiology Mindy Moody AUD [facility] AUDIOLOGY DEPT [place], [place] [address] (Wo rk) 11/04/2022 Office Visit Rheumatology Dante Freedman PA [facility] RHEUMATOLOGY [place], [place] [address] (Wo rk) documented as of this encounter Visit Diagnoses Not on filedocumented in this encounter Care Teams Grain Processor Relationship Specialty Start Date End Date Violetta Sanford MD PCP - General 04/02/14 [address] [place] [address] documented as of this encounter
--- OUTSIDE RECORDS SUMMARY | 2022-06-16 12:23 | XMS_ITS | Encounter Summary ---
:1955 Author Organization [facility] [place] [address] Care Team Providers Name Role Phone Violetta Sanford MD Primary Care Provider Encounter Details Date Type Department Care Team Description 09/30/2021 Office Visit Hematology/Oncology Nicky Baez KD (chronic kidney disease) stage 4, GFR 15-29 ml/min; at [facility] MD James Anemia of chronic renal failure, stage 4 (severe); [address] [place] [address] H/O kidney transplant; [place], [place] DR Lujan; [address] HEMATOLOGY/ONCOLOGY Abnormal red blood cells; [phone] DEPT. Renal failure, unspecified chronicity [place], [place] [address] (Wo rk) Social History Tobacco [...] renal insufficiency. Followed by Dr Garnett at [facility]. Seen for epo supplementation. Patient Active Problem List Diagnosis ??? Essential hypertension ??? Renal osteodystrophy ??? Other postherpetic nervous system involvement ??? Renal tubular acidosis ??? Hypervolemia ??? PAF (paroxysmal atrial fibrillation) ??? Phantom limb pain ??? Chronic atrial fibrillation ??? CKD (chronic kidney disease) stage 4, GFR 15-29 ml/min ??? Prophylactic immunotherapy ??? Persistent proteinuria ??? MCFP current use of immunosuppressive drug ??? Aftercare [...] biopsy. The labs can be done at [facility] on 10/05 when he is there for [...] Rojas MD [facility] Neurology [place], [place] [phone] (Wo rk) 06/29/2022 Appointment Cardiology Violetta Sanford M D [facility] [address] [place] [address] (Wo rk) 06/30/2022 Infusion Hematology and Oncology 07/14/2022 Infusion Hematology and Oncology 07/28/2022 Infusion Hematology and Oncology 08/11/2022 Infusion Hematology and Oncology 08/16/2022 Office Visit Audiology Mindy Moody AUD [facility] AUDIOLOGY DEPT [place], [place] [address] (Wo rk) 11/04/2022 Office Visit Rheumatology Dante Freedman PA [facility] RHEUMATOLOGY [place], [place] [address] (Wo rk) Scheduled Orders Name [...] Signature Glucose Lvl 118 65 - [address] [facility] mg/dL [facility] Comment: Diabetes: >=200 mg/dL plus symp toms BUN 47 (H) 10 - 20 mg/dL [facility] Creatinine 3.78 (H) 0.80 - 1.50 mg/dL [facility] Sodium 135 135 - 145 mmol/L [facility] Potassium 5.7 (H) 3.5 - 5.0 mmol/L [facility] Comment: Please note: ??Patients with WBC >100,00 0 may have falsely elevated Potassium levels. ??For accurate Potassium quantif ication in these patients send serum separator tube (gold top) for subsequent determinations. ??Contact the Clinical Chemistry Laboratory if there are any qu estions. Chloride 110 (H) 98 - 107 mmol/L [facility] CO2 17 (L) 22 - 31 mmol/L [facility] Anion Gap 8 5 - 15 mmol/L [facility] Calcium 9.0 8.5 - 10.5 mg/dL [facility] Total Protein 7.3 6.1 - 8.0 g/dL [facility] Albumin 3.6 3.2 - 5.2 g/dL [facility] AST 13 0 - 39 unit/L [facility] ALT 12 0 - 55 unit/L [facility] Alk Phos 111 40 - 130 unit/L [facility] Total Bilirubin 0.3 0.2 - 1.3 mg/dL [facility] Estimated GFR 15 (L) >=60 mL/min/1.73 m?? [facility] Comment: This patient? s estimated [...] Organization Address City/State/[place] [address] [facility], serum (10/05/2021 8:39 AM EDT) P athologist Signature Copper 1.24 0.75 - 1.[address] [facility] mcg/mL [facility] Comment: ADDITIONAL INFORMATIO N This test was developed and its performa nce characteristics determined by [facility] in a manner co nsistent with CLIA requirements. This test has not been carlos ared or approved by the U.S. Food and Drug Administration. Test Performed by: [facility] [address] [place] [address] [phone] Supervisor Audit Clerks: Van White M.D. Ph. D.; CLIA# [id number] Specimen Anatomical Collection Method Collection Time Receive d Time (Source) Location / / Volume Laterality Blood 10/05/2021 8:39 AM 2 EDT 10:42 AM EDT Resulting Agency Comment Spec In Lab Nicky Baez MD CHEMISTRY ORDERABLES Performing Organization Address City/State/ZIP Code Phon e Number JERE [address] (ABNORMAL) Protein Electrophoresis, serum (10/05/2021 8:39 AM EDT) Patholo gist Method Time Signature Total Prot 6.8 6.1 - 8.0 J[facility] Elec g/dL [facility] Albumin Elect 3.76 3.60 - 6.00 [facility] g/dL [facility] Alpha1-Globul 0.20 0.10 - 0.30 [facility] in g/dL [facility] Alpha2-Globul 0.72 0.40 - 0.90 [facility] in g/dL [facility] Beta Globulin 0.61 0.50 - 1.00 [facility] g/dL [facility] Gamma 1.60 (H) 0.50 - 1.30 [facility] Globulin g/dL [facility] M1 Band None None [facility] Detected Detected [facility] Specimen Anatomical Collection Method Collection Time Receive d Time (Source) Location / / Volume Laterality Blood 10/05/2021 8:39 AM 2 8:52 EDT AM EDT Narrative This result has an attachment that is no t available. Resulting Agency Comment Spec In Lab Nicky Baez MD CHEMISTRY ORDERABLES Performing Organization Address City/State/ZIP Code Phon e Number [address] Direct antiglobulin test (10/05/2021 8:39 AM EDT) P athologist Signature GUILHERME Negative [facility] Specimen Anatomical Collection Method Collection Time Receive d Time (Source) Location / / Volume Laterality Blood 10/05/2021 8:39 AM 2 8:44 EDT AM EDT Resulting Agency Comment Spec In Lab Nicky Baez MD BLOOD BANK ORDERABLES Performing Organization Address City/State/ZIP Code Phon e Number [address] Lactate Dehydrogenase (10/05/2021 8:39 AM EDT) athologist Signature LDH 134 110 - 220 [place] GARRISON unit/L [facility] Specimen Anatomical Collection Method Collection Time Receive d Time (Source) Location / / Volume Laterality Blood 10/05/2021 8:39 AM 2 8:52 EDT AM EDT Resulting Agency Comment Spec In Lab Nicky Baez MD CHEMISTRY ORDERABLES Performing Organization Address City/[facility] Phon e Number [address] (ABNORMAL) Reticulocyte Count (10/05/2021 8:39 AM EDT) [facility] Method Time Signature Retic Ct % 2.6 0.7 - 2.6 JERE MELI % [facility] Retic Ct Abs 0.070 0.030 - JERE MELI 0.120 [facility] x10(6)/[facility] L LABORATORY Immature Retic% 17.2 (H) 0.0 - [facility] MELI 15.6 % [facility] Reticulated Hgb 24.5 (L) 31.3 - [facility] MELI 40.2 pg [facility] Specimen Anatomical Collection Method Collection Time Receive d Time (Source) Location / / Volume Laterality Blood 10/05/2021 8:39 AM 8:52 EDT AM EDT Resulting Agency Comment Spec In Lab Nicky Beaz MD HEMATOLOGY ORDERABLES Performing Organization Address City/[facility]/ZIP Code Phon e Number [address] TSH (10/05/2021 8:39 AM EDT) athologist Signature TSH 3.91 0.27 - 4.20 JERE GARRISON mcIU/mL [facility] Comment: Reference Interval (mcIU/mL): Females: ??First Trimester: 0.23-3.88 ??Second Trimester: 0.22-3.90 ??Third Trimester: 0.44-4.66 Specimen Anatomical Collection Method Collection Time Receive d Time (Source) Location / / Volume Laterality Blood 10/05/2021 8:39 AM 2 8:52 EDT AM EDT Resulting Agency Comment Spec In Lab Nicky Baez MD CHEMISTRY ORDERABLES Performing Organization Address City/[facility]/ZIP Code Phon e Number [address] Folate, serum (10/05/2021 8:39 AM EDT) athologist Signature Folate Lvl >20.0 4.8 - 24.2 JERE MELI ng/mL [facility] Specimen Anatomical Collection Method Collection Time Receive d Time (Source) Location / / Volume Laterality Blood 10/05/2021 8:39 AM 2 8:52 EDT AM EDT Resulting Agency Comment Spec In Lab Nicky Baez MD CHEMISTRY ORDERABLES Performing Organization Address City/[facility]/[place] [address] Vitamin B12 (10/05/2021 8:39 AM EDT) athologist Signature Vitamin B-12 1,177 232 - 1,245 JERE MELI pg/mL [facility] Specimen Anatomical Collection Method Collection Time Receive d Time (Source) Location / / Volume Laterality Blood 10/05/2021 8:39 AM 2 8:52 EDT AM EDT Resulting Agency Comment Spec In Lab Nicky Baez MD CHEMISTRY ORDERABLES Performing Organization Address City/[facility]/[place] [address] Ferritin (10/05/2021 8:39 AM EDT) athologist Signature Ferritin 71 30 - 400 JERE MELI ng/mL [facility] Comment: Pediatric reference ranges not verified at [facility], interpret with caution. Reference ranges for females [...] Address City/State/ZIP Code Phon e Number [address] (ABNORMAL) Iron and TIBC (10/05/2021 8:39 AM EDT) Analysis Performed At Patho logist Time Signature Iron 37 (L) 45 - [address] [facility] mcgdL [facility] TIBC 190 (L) 250 - 450 [facility] LABORATORY Iron Saturation 19 (L) 20 - 50 % [facility] Specimen Anatomical Collection Method Collection Time Receive d Time (Source) Location / / Volume Laterality Blood 10/05/2021 8:39 AM 2 8:52 EDT AM EDT Resulting Agency Comment Spec In Lab Nicky Baez MD CHEMISTRY ORDERABLES Performing Organization Address City/State/[place] [address] (ABNORMAL) Comprehensive metabolic panel (non-fasting) (10/05/2021 8:39 AM EDT) P athologist Signature Glucose Lvl 118 65 - [address] [facility] mg/dL [facility] Comment: Diabetes: >=200 mg/dL plus symp toms BUN 44 (H) 10 - 20 mg/dL [facility] Creatinine 3.50 (H) 0.80 - 1.50 mg/dL [facility] Sodium 138 135 - 145 mmol/L [facility] Potassium 5.2 (H) 3.5 - 5.0 mmol/L [facility] Comment: Please note: ??Patients with WBC >100,00 0 may have falsely elevated Potassium levels. ??For accurate Potassium quantif ication in these patients send serum separator tube (gold top) for subsequent determinations. ??Contact the Clinical Chemistry Laboratory if there are any qu estions. Chloride 111 (H) 98 - 107 mmol/L [facility] CO2 19 (L) 22 - 31 mmol/L [facility] Anion Gap 8 5 - 15 mmol/L [facility] Calcium 9.0 8.5 - 10.5 mg/dL [facility] Total Protein 7.1 6.1 - 8.0 g/dL [facility] Albumin 3.5 3.2 - 5.2 g/dL [facility] AST 10 0 - 39 unit/L [facility] ALT 8 0 - 55 unit/L [facility] Alk Phos 108 40 - 130 unit/L [facility] Total Bilirubin 0.3 0.2 - 1.3 mg/dL [facility] Estimated GFR 17 (L) >=60 mL/min/1.73 m?? [facility] Comment: This patient? s estimated [...] Organization Address City/State/[place] [address] Creatinine (09/16/2021) P athologist Signature Creatinine 4.1 BUN 43 Specimen (Source) Anatomical Location Collection Method / Collectio n Time Received Time / Laterality Volume Blood 09/16/2021 Historical Provider CHEMISTRY ORDERABLES documented in this [...] chronicity documented in this encounter Care Teams Fitter Machinist Relationship Specialty Start Date End Date Violetta Sanford MD PCP - General 04/02/14 [address] [place] [address] documented as of this encounter
--- OUTSIDE RECORDS SUMMARY | 2022-06-16 12:23 | XMS_ITS | Encounter Summary ---
:1955 Author Organization [facility] [place] [address] Care Team Providers Name Role Phone Violetta Sanford MD Primary Care Provider Encounter Details Date Type Department Care Team Description 11/24/2021 Notes Only Rheumatology at [facility] Dante Freedman [place] [address] RHEUMATOLOGY [phone] [place], [place] [address] (Wo rk) Social History Tobacco [...] 11:06 AM EDT CrCl <30 mL/minute: The shaker tender's labeling recommends to avoid use; duloxetine and inactive metabolites AUC expected to increase significantly (Lui 2010). When necessary, some experts recommend cautious use of lower initial doses (eg, 30 mg daily); titrate slowly, not to exceed 60 mg once daily; monitor closely for adverse effects (Nadeen 2014; Lui 2010; Dolores 2012; Colindres 2019). Unable to use cymbalta documented in this encounter Plan of Treatment Upcoming Encounters Date Type Specialty Care Team Description 06/16/2022 Infusion Hematology and Oncology 06/21/2022 Office Visit Neurology Tyler Rojas MD [facility] Neurology [place], [place] [phone] (Wo rk) 06/29/2022 Appointment Cardiology Violetta Sanford M D [address] [place], [place] [address] (Wo rk) 06/30/2022 Infusion Hematology and Oncology 07/14/2022 Infusion Hematology and Oncology 07/28/2022 Infusion Hematology and Oncology 08/11/2022 Infusion Hematology and Oncology 08/16/2022 Office Visit Audiology Mindy Moody AUD [facility] AUDIOLOGY DEPT [place], [place] [address] (Wo rk) 11/04/2022 Office Visit Rheumatology Dante Freedman PA [facility] RHEUMATOLOGY [place], [place] [address] (Wo rk) documented as of this encounter Visit Diagnoses Not on filedocumented in this encounter Care Teams Instructional Resource Teacher Relationship Specialty Start Date End Date Violetta Sanford MD PCP - General 04/02/14 [address] [place], [place] [address] documented as of this encounter
--- OUTSIDE RECORDS SUMMARY | 2022-06-16 12:23 | XMS_ITS | Encounter Summary ---
:1955 Author Organization [facility] [place] [address] Care Team Providers Name Role Phone Violetta Sanford MD Primary Care Provider Reason for Referral Consultation (NED) - Authorized Specialty Diagnoses / Procedures Referred By Contact Refer red To Contact Nephrology Diagnoses H/O kidney transplant CKD (chronic kidney disease) stage 4, GFR 15-29 ml/min Anemia of chronic renal failure, stage 4 (severe) Alejo Garnett [facility] 2m [facility] [place] [address] [place] [address] Referral ID Status Reason Start Date Expiration Visits Visits Date Requested Authorized [id number] Authorized Assume 10/21/2021 10/21/2022 12 12 Subset of Care Encounter Details Date Type Department Care Team Description 10/20/2021 Orders Only Solid Organ Transplant Alejo Garnett H/O kidney transplant; at [facility] MD Thang CKD (chronic kidney disease) stage 4, GF R 15-29 ml/min; [facility] Ane maki of chronic renal failure, stage 4 (severe) [place] [phone] TRANSPLANT SURGERY [phone] [place] [address] Social History Tobacco Use Types Packs/Day [...] Tyler Rojas MD [facility] Neurology [place], [place] [phone] (Wo rk) 06/29/2022 Appointment Cardiology Violetta Sanford M D [address] [place], [place] [address]AY[address] [address] (Wo rk) 06/30/2022 Infusion Hematology and Oncology 07/14/2022 Infusion Hematology and Oncology 07/28/2022 Infusion Hematology and Oncology 08/11/2022 Infusion Hematology and Oncology 08/16/2022 Office Visit Audiology Mindy Moody AUD [facility] AUDIOLOGY DEPT [place], [place] [address] (Wo rk) 11/04/2022 Office Visit Rheumatology Dante Freedman PA [facility] RHEUMATOLOGY [place], [place] [address] (Wo rk) Scheduled Referrals Name [...] (severe) documented in this encounter Care Teams Head Of Biology Relationship Specialty Start Date End Date Violetta Sanford MD PCP - General 04/02/14 [address] [place] [address] documented as of this encounter
--- OUTSIDE RECORDS SUMMARY | 2022-06-16 12:23 | XMS_ITS | Encounter Summary ---
:1955 Author Organization [facility] [place] [address] Care Team Providers Name Role Phone Violetta Sanford MD Primary Care Provider Encounter Details Date Type Department Care Team Description 09/25/2021 External Results Solid [place] [address] Social History Tobacco Use Types Packs/Day [...] [facility] Neu[facility] [place], [place] [phone] (Wo rk) 06/29/2022 Appointment Cardiology Violetta Sanford M D [address] [place] [address] [address] [place], [place] [address] (Oscar rk) 06/30/2022 Infusion Hematology and Oncology 07/14/2022 Infusion Hematology and Oncology 07/28/2022 Infusion Hematology and Oncology 08/11/2022 Infusion Hematology and Oncology 08/16/2022 Office Visit Audiology Mindy Moody AUD [facility] AUDIOLOGY DEPT [place], [place] [address] (Wo rk) 11/04/2022 Office Visit Rheumatology Dante Freedman PA [facility] RHEUMATOLOGY [place], [place] [address] (Wo rk) documented as of [...] filedocumented in this encounter Care Teams Sales And Marketing Analyst Relationship Specialty Start Date End Date Violetta Sanford MD PCP - General 04/02/14 [address] [place] [address] documented as of this encounter
--- OUTSIDE RECORDS SUMMARY | 2022-06-16 12:23 | XMS_ITS | Encounter Summary ---
:1955 Author Organization [facility] [place] [address] Care Team Providers Name Role Phone Violetta Sanford MD Primary Care Provider Encounter Details Date Type Department Care Team Description 11/20/2021 External Results [place] [address] Social History Tobacco Use Types Packs/Day [...] Rojas MD [facility] Neurology [place], [place] [phone] (Wo rk) 06/29/2022 Appointment Cardiology Violetta Sanford M D [address] [place] [address] [address] [place], [place] [address] (Oscar rk) 06/30/2022 Infusion Hematology and Oncology 07/14/2022 Infusion Hematology and Oncology 07/28/2022 Infusion Hematology and Oncology 08/11/2022 Infusion Hematology and Oncology 08/16/2022 Office Visit Audiology Mindy Moody AUD [facility] AUDIOLOGY DEPT [place], [place] [address] (Wo rk) 11/04/2022 Office Visit Rheumatology Dante Freedman PA [facility] RHEUMATOLOGY [place], [place] [address] (Wo rk) documented as of [...] on filedocumented in this encounter Care Teams Nurses Director Relationship Specialty Start Date End Date Violetta Sanford MD PCP - General 04/02/14 [address] [place] [address] documented as of this encounter
--- OUTSIDE RECORDS SUMMARY | 2022-06-16 12:23 | XMS_ITS | Encounter Summary ---
:1955 Author Organization [place] [address] Care Team Providers Name Role Phone Violetta Sanford MD Primary Care Provider Reason for Visit Reason Onset Date Comments Abnormal Lab 11/18/2021 Lab tracking Encounter Details Date Type Department Care Team Description 11/18/2021 Telephone Hematology/Oncology at Brittany Vera RN Abnormal Lab (Lab [facility] tracking) [address] [place] [phone] Social History Tobacco Use Types Packs/Day Years Used Date Smoking Tobacco: Former Cigarettes 2 20 Quit : 01/19/1993 Smokeless Tobacco: Never Alcohol Use Standard Drinks/Week Comments Yes 0 (1 standard drink = 0.6 oz pure alcoho l) Once a year Sex Assigned at Date Recorded Not on file documented as of this encounter Miscellaneous Notes Telephone Encounter - rBittany Vera RN - 11/18/2021 11:53 AM EDT LAB TRACKING Leroy Torres [id number] 1955 ?? DIAGNOSIS: Anemia d/t CKD stage [...] with pt and he will go to [facility] lab at 11 am on November 25. [...] be performed. [3] See Bone Marrow Report [id number] under Hematopathology Reports. [4] An INR <2.0 [...] Rojas MD [facility] Neurology [place], [place] [phone] (Wo rk) 06/29/2022 Appointment Cardiology Violetta Sanford M D [address] [address] (Wo rk) 06/30/2022 Infusion Hematology and Oncology 07/14/2022 Infusion Hematology and Oncology 07/28/2022 Infusion Hematology and Oncology 08/11/2022 Infusion Hematology and Oncology 08/16/2022 Office Visit Audiology Mindy Moody AUD [facility] AUDIOLOGY DEPT [place], [place] [address] (Wo rk) 11/04/2022 Office Visit Rheumatology Dante Freedman PA [facility] RHEUMATOLOGY [place], [place] [address] (Wo rk) documented as of [...] on filedocumented in this encounter Care Teams Labor Contract Analyst Relationship Specialty Start Date End Date Violetta Sanford MD PCP - General 04/02/14 [address] [place] [address] documented as of this encounter
--- OUTSIDE RECORDS SUMMARY | 2022-06-16 12:23 | XMS_ITS | Encounter Summary ---
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; [facility] [place] [facility] MEDICAL Amputee, below knee; [place], [place] CENTER H/O kidney transplant; [id number] RHEUMATOLOGY Immunosuppression; [phone] [place], [place] Chronic obstruc tive pulmonary disease, unspecified COPD type [address] Social History Tobacco Use Types Packs/Day Years [...] in this encounter Patient Instructions Patient InstructionsSDante rasmussen PA - 11/04/2021 10:43 AM EDT 1 year follow up documented in this encounter Progress Notes Datne Freedman PA - 11/04/2021 10:30 AM EDTSummary: [...] has failed conservative measures namely topical preparations [id number] and paraffin. Patient reports no good success [...] Gilberto 2 Sensor Kit 1 each by [facility].(Non-Drug; Combo Route) route every 14 days. Use to continuously monitor blood glucose. Scan at least 4 times per day. 6 kit 3 ??? FreeStyle Gilberto 2 [facility] Use to continuously monitor blood glucose. Scan [...] 14 Day Sensor Kit 1 each by [facility].(Non-Drug; Combo Route) route every 14 days. Use to continuously monitor blood glucose. Scan at least 5 times per day. DX: E11.65 6 kit 3 ??? darbepoetin cristy in polysorbat 10 mcg/0.4 mL Syringe Inject 300 mg as directed as needed. ??? cyanocobalamin, Vitamin B-12, (Vitamin B-12) 100 mcg Tablet Take 100 mcg by mouth daily. ??? Blood-Glucose Sensor (Dexcom G6 Sensor) Device by [facility].(Non-Drug; Combo Route) route. Sensor, bilingual research interviewer andtransmitter ??? metoprolol succinate XL (Toprol-XL) 50 mg Tablet Sustained Release 24 hr Take 1 tablet by mouth daily. 90 tablet 1 ??? amLODIPine (Norvasc) 10 mg Tablet Take 0.5 tablets by mouth daily. 90 tablet 3 ??? fluticasone propionate (FLONASE) 50 mcg/actuation [place], Suspension INSTILL 2 SPRAYS INTO EACH NOSTRIL [...] gauge x 1/2 Needle 1 Device by [facility].(Non- Drug; Combo Route) route 3 times daily. [...] Reported on 08/06/2016 ??? Miscellaneous Medical Supply [facility] 4 Devices by [facility].(Non-Drug; Combo Route) route daily. Rubber sheath for [...] (chronic obstructive pulmonary disease) J44.9 ??? termite helper current use of immunosuppressive drug Z79.899 [...] Biopsy Bone Marrow 10/22/2021 Richar Lo MD [facility] RAD CT SCAN ??? PRO AMPUTATION LOW LEG THRU TIB/FIB 06/21/2011 ??AMPUTATION, BELOW-KNEE performed by HENNA GAMINO JR at [facility] MAIN OR ??? PRO LAP, APPENDECTOMY 06/16/2013 LAPAROSCOPIC APPENDECTOMY performed by Angel Mccann MD at [facility] MAIN OR ??? US RENAL TRANSPLANT LEFT Left 06/26/2019 US Renal Transplant Left 06/26/2019 [facility] RAD ULTRASOUND Physical Examination: BP 159/54 Pulse [...] Rojas MD [facility] Neurology [place], [place] [phone] (Oscar escobedo) 06/29/2022 Appointment Cardiology Violetta Sanford M D [address] [place] [address] (Oscar escobedo) 06/30/2022 Infusion Hematology and Oncology 07/14/2022 Infusion Hematology and Oncology 07/28/2022 Infusion Hematology and Oncology 08/11/2022 Infusion Hematology and Oncology 08/16/2022 Office Visit Audiology Mindy Moody AUD [facility] AUDIOLOGY DEPT [place], [place] [address] (Wo rk) 11/04/2022 Office Visit Rheumatology Dante Freedman PA [facility] [address] [place], [place] [address] (Wo rk) documented as [...] type documented in this encounter Care Teams Pari Mutuel Ticket Seller Relationship Specialty Start Date End Date Violetta Sanford MD PCP - General 04/02/14 [address] [place] [address] documented as of this encounter
--- OUTSIDE RECORDS SUMMARY | 2022-06-16 12:23 | XMS_ITS | Encounter Summary ---
:1955 Author Organization [facility] [place] [address] Care Team Providers Name Role Phone Violetta Sanford MD Primary Care Provider Reason for Visit Reason Comments Injections aranesp Treatment/Therapy Plan Authorization (Routine) - Authorized Specialty Diagnoses / Procedures Referred By Contact Refer red To Contact Hematology and Diagnoses CKD (chronic kidney disease) stage 4, GFR 15-29 ml/min Nicky Baez Elizabeth Oncology Procedures MD James NUR MD [address] HEMATOLOGY/ONCOLOGY [place], [place] DEPT. [address] [place] [address] Referral ID Status Reason Start Date Expiration Date Visits V isits Requested Authorized [id number] Authorized 10/08/2020 07/24/2023 99 99 Encounter Details Date Type Department Care Team Description 09/30/2021 Infusion Hematology Oncology at [facility] D (chronic kidney disease) [facility] stage 4, GFR 15-29 ml/min [address] [place] [phone] Social History Tobacco Use Types [...] Rojas MD [facility] Neurology [place], [place] [phone] (Wo rk) 06/29/2022 Appointment Cardiology Violetta Sanford M D [facility] [address] [place] [address] (Wo rk) 06/30/2022 Infusion Hematology and Oncology 07/14/2022 Infusion Hematology and Oncology 07/28/2022 Infusion Hematology and Oncology 08/11/2022 Infusion Hematology and Oncology 08/16/2022 Office Visit Audiology Mindy Moody AUD [facility] AUDIOLOGY DEPT [place], [place] [address] (Wo rk) 11/04/2022 Office Visit Rheumatology Dante Freedman PA [facility] RHEUMATOLOGY [place], [place] [address] (Wo rk) documented as of [...] (CKD) documented in this encounter Care Teams Distribution Agent Relationship Specialty Start Date End Date Violetta Sanford MD PCP - General 04/02/14 [address] [place] [address] documented as of this encounter
--- OUTSIDE RECORDS SUMMARY | 2022-06-16 12:23 | XMS_ITS | Encounter Summary ---
:1955 Author Organization [facility] [place] [address] Care Team Providers Name Role Phone Violetta Sanford MD Primary Care Provider Encounter Details Date Type Department Care Team Description 09/16/2021 Telephone Solid Organ [place] [phone] Social History Tobacco Use Types Packs/Day [...] Rojas MD [facility] Neurology [place], [place] [phone] (Wo rk) 06/29/2022 Appointment Cardiology Violetta Sanford M D [address] [place], [place] [address] (Wo rk) 06/30/2022 Infusion Hematology and Oncology 07/14/2022 Infusion Hematology and Oncology 07/28/2022 Infusion Hematology and Oncology 08/11/2022 Infusion Hematology and Oncology 08/16/2022 Office Visit Audiology Mindy Moody AUD [facility] AUDIOLOGY DEPT [place], [place] [address] (Wo rk) 11/04/2022 Office Visit Rheumatology Dante Freedamn PA [facility] RHEUMATOLOGY [place], [place] [address] (Wo rk) documented as of this encounter Visit Diagnoses Not on filedocumented in this encounter Care Teams Lost Charge Card Clerk Relationship Specialty Start Date End Date Violetta Sanford MD PCP - General 04/02/14 [address] [place], [place] [id number] documented as of this encounter
--- OUTSIDE RECORDS SUMMARY | 2022-06-16 12:23 | XMS_ITS | Encounter Summary ---
:1955 Author Organization [facility] Address [facility] [place] [address] Care Team Providers Name Role Phone Violetta Sanford MD Primary Care Provider Encounter Details Date Type Department Care Team Description 10/05/2021 Laboratory Lab 3L Sylvia CKD (chronic ki dney disease) stage 4, GFR 15- 29 ml/min; Appointment [facility] Anemia of chronic renal failure, stage 4 (severe); Hospital H/O kidney transplant; [facility] Tiredness ; Drive Abnormal red blood cells; [place], [place] Renal failure, unspecified chronicity ; [id number] Type 2 diabetes mellitus wit h hyperglycemia, with long-term current use of insulin; [phone] Other complicat ion of kidney transplant; Immunocompromis [...] Tyler Rojas MD [facility] [address] [place], [place] [phone] (Wo rk) 06/29/2022 Appointment Cardiology Violetta Sanford M D [address] [place] [address] (Wo rk) 06/30/2022 Infusion Hematology and Oncology 07/14/2022 Infusion Hematology and Oncology 07/28/2022 Infusion Hematology and Oncology 08/11/2022 Infusion Hematology and Oncology 08/16/2022 Office Visit Audiology Mindy Moody [facility] AUDI[facility] DEPT [place], [place] [address] (Wo rk) 11/04/2022 Office Visit Rheumatology Dante Freedman, [facility] RHEUMATOLOGY [place], [place] [address] (Wo rk) documented as of this encounter [...] 8:39 AM EDT) Analysis [facility] Signature SARS-CoV-2 Detected SYLVIA GARRISON [facility] LABORATORY Comment: This is a total antibody [...] be due to a past infection with ayk-IMEX-AnK-2 coronavirus strains, such as coronavirus HKU1, NL63, OC43, or 229E. This test was performed using the Elecsy s Xuae-UMQE-GeT-2 S total antibody assay on the [employer] e801 analyzer. This serology test is available following FDA Emergency Use Authorizatio n, however it has not been reviewed by the FDA, nor is it FDA cleared or approv ed. The performance characteristics of this test were determined by the [facility] ent of Pathology and Laboratory Medicine at [facility]. The laboratory is certified under the Clinical [...] fact sheets at the following FDA website: https://www.fda.gov/medical-devices/uulbykbinqi-czfhbqu-9197-yapmu-69-rchhtihgl- fep-moabhftqmetylo-nsngydr-devices/rrpdp-yhvjnrnuepm-rzsx Specimen Anatomical Collection Method Collection Time Receive d Time (Source) Location / / Volume Laterality Blood Venous Draw / 10/05/2021 8:39 AM 10/06/19 8:55 Unknown EDT AM EDT Resulting Agency Comment Spec In Lab Alejo Garnett MD CHEMISTRY ORDERABLES Performing Organization Address City/State/[place] [address] COVID-19 Renzo Antibody (10/05/2021 8:39 AM EDT) Analysis Performed At Patho logist Time Signature SARS-CoV-2 Not Perf [facility] LABORATORY Comment: This is a total [...] be due to a past infection with vlg-RVJZ-QhA-2 coronavirus strains, such as coronavirus HKU1, NL63, OC43, or 229E. This test was performed using the Elecsy s Sovt-QGMY-HeO-2 S total antibody assay on the [employer]ell e801 analyzer. This serology test is available following FDA Emergency Use Authorizatio n, however it has not been reviewed by the FDA, nor is it FDA cleared or approv ed. The performance characteristics of this test were determined by the [facility] ent of Pathology and Laboratory Medicine at [facility]. The laboratory is certified under the Clinical [...] clinical management guidance information are available at [facility] Coronavirus Disease 2019 (COVID-19) webpage under Information fo r Healthcare Professionals (https://www.cdc.gov/coronavirus/2019-nc ov/hcp/index.html) Additional information about this and ot her EUA tests can be found in provider and patient fact sheets at the following FDA website: https://www.fda.gov/medical-devices/lojxmpmlrfk-cfkprky-1525-ndqcq-50-fedarhndv- qqh-agctnmouxosnme-rrztzip-devices/tvsap-jmuqnvuaalk-aqys Specimen Anatomical Collection Method Collection Time Receive d Time (Source) Location / / Volume Laterality Blood 10/05/2021 8:39 AM 2 EDT 11:24 AM EDT Alejo Garnett MD CHEMISTRY ORDERABLES Performing Organization Address City/State/[place] [address] Differential, Automated (10/05/2021 8:39 AM EDT) P athologist Signature Neutrophils % 57.1 % [facility] LABORATORY Neutr Abs (ANC) 3.72 1.70 - [facility] 6.10 [facility] x10(3)/[facility] LABORATORY Lymphocytes % 27.3 % [facility] LABORATORY Lymphocytes Abs 1.8 0.9 - 3.2 [facility] x10(3)/[facility] LABORATORY Monocytes % 10.7 % [facility] LABORATORY Monocyte Abs 0.7 0.3 - 0.9 [facility] x10(3)/[facility] LABORATORY Eosinophils % 3.8 % [facility] LABORATORY Eosinophils Abs 0.2 0.0 - 0.4 [facility] x10(3)/[facility] LABORATORY Basophils % 0.6 % [facility] LABORATORY Basophils Abs 0.0 0.0 - 0.1 [facility] x10(3)/[facility] LABORATORY Immature Gran % 0.50 % [facility] LABORATORY Comment: Immature granulocytes(IG's)percentage an d absolute count will include metamyelocytes, myelocytes, and promyelo cytes. Blood smears from CBCs yielding IG's will be scanned manually for concor dance. If this scan disagrees with the automated IG or if promyelocytes are not ed, a manual differential will be performed. Courtney Gran Abs 0.03 0.00 - 0.04 x10(3)/[facility] LABORATORY Specimen Anatomical Collection Method Collection Time Receive d Time (Source) Location / / Volume Laterality Blood 10/05/2021 8:39 AM 8:52 EDT AM EDT Resulting Agency Comment Spec In Lab Nicky Baez MD HEMATOLOGY ORDERABLES Performing Organization Address City/State/ZIP Code Phon e Number [place] [id number]OSP[address] LAB[address]ORY [address] (ABNORMAL) Hemogram (10/05/2021 8:39 AM EDT) Analysis Performed At Patho logist Time Signature WBC 6.5 4.0 - 9.5 [facility] x10(3)/[facility] LABORATORY RBC 2.75 (L) 4.58 - [facility] MELI 5.54 [facility] x10(6)/[facility] LABORATORY Hemoglobin 8.2 (L) 13.7 - [facility] 16.5 g/dL [facility] LABORATORY Hematocrit 26.7 (L) 40.5 - [facility] 48.5 % [facility] LABORATORY MCV 97.1 (H) 82.9 - [facility] 93.1 fL [facility] LABORATORY MCH 29.8 27.5 - [facility] 32.1 pg [facility] LABORATORY MCHC 30.7 (L) 32.0 - [facility] 35.7 g/dL [facility] LABORATORY Platelets 178 145 - 357 [facility] x10(3)/[facility] LABORATORY RDWSD 52.1 (H) 36.0 - [facility] 45.0 [facility] LABORATORY RDWCV 14.7 (H) 11.4 - [facility] 13.8 % [facility] LABORATORY MPV 8.1 7.6 - 12.9 [facility] LABORATORY nRBC % Auto 0.0 % [facility] LABORATORY nRBC Abs Auto 0.000 0.000 - [facility] 0.000 [facility] x10(3)/[facility] LABORATORY Specimen Anatomical Collection Method Collection Time Receive d Time (Source) Location / / Volume Laterality Blood 10/05/2021 8:39 AM 2 8:52 EDT AM EDT Resulting Agency Comment Spec In Lab Nicky Baez MD HEMATOLOGY ORDERABLES Performing Organization Address City/State/ZIP Code Phon e Number [address] Tacrolimus level (10/05/2021 8:39 AM EDT) athologist Signature Tacrolimus Lvl 3.5 ng/mL [facility] [...] Organization Address City/State/ZIP Code Phon e Number [address] Uric acid (10/05/2021 8:39 AM EDT) athologist Signature Uric Acid 7.0 3.5 - 8.5 [facility] mg/dL [facility] LABORATORY Specimen Anatomical Collection Method Collection Time Receive d Time (Source) Location / / Volume Laterality Blood 10/05/2021 8:39 AM 2 8:52 EDT AM EDT Resulting Agency Comment Spec In Lab Alejo Garnett MD CHEMISTRY ORDERABLES Performing Organization Address City/[facility]/ZIP Code Phon e Number [address] Phosphorus (10/05/2021 8:39 AM EDT) P athologist Signature Phosphorus 2.9 2.5 - 4.5 [facility] mg/dL [facility] LABORATORY Specimen Anatomical Collection Method Collection Time Receive d Time (Source) Location / / Volume Laterality Blood 10/05/2021 8:39 AM 2 8:52 EDT AM EDT Resulting Agency Comment Spec In Lab Alejo Garnett MD CHEMISTRY ORDERABLES Performing Organization Address City/[facility]/ZIP Code Phon e Number [address] Magnesium (10/05/2021 8:39 AM EDT) P athologist Signature Magnesium 0.78 0.69 - 1.07 [facility] mmol/L [facility] LABORATORY Specimen Anatomical Collection Method Collection Time Receive d Time (Source) Location / / Volume Laterality Blood 10/05/2021 8:39 AM 2 8:52 EDT AM EDT Resulting Agency Comment Spec In Lab Aeljo Garnett MD CHEMISTRY ORDERABLES Performing Organization Address City/[facility]/[place] [address] Cholesterol, total (10/05/2021 8:39 AM EDT) P athologist Signature Chol, Total 73 mg/dL [facility] LABORATORY Comment: Lower Risk: <200 mg/dL Average Risk: 200-239 mg/dL Higher Risk: >xd=818 mg/dL Lipid Interpretation See Note [facility] LABORATORY Comment: Lipid management should be guided by a p atient? s ASCVD risk, goals and preferences. ACC/AHA Guidelines recommend high intens ity statin if clinical ASCVD or LDL greater than or equal to 190 mg/dL. http://tinyurl.com/IJR-WVD-Xkcqbzzuo Adults aged 40-75 with LDL 70-189 mg/dL should have their 10 year ASCVD risk estimated with the ACC/AHA ASCVD risk es timator http://tools.acc.org/UKFSK-Uimb-Gryassni r/ Statin should be discussed if risk [...] Organization Address City/State/[place] [address] (ABNORMAL) Hemoglobin A1c (10/05/2021 8:39 AM EDT) Analysis Performed At Patho logist Time Signature Hemoglobin A1C 6.4 (H) 4.3 - 5.6 [facility] [...] Mellitus, Diabetes Care 2013; 36: Suppl. 1, C47-76 Est Avg Gluc 138 mg/dL [facility] LABORATORY Comment: eAG equivalents for HbA1c percentages: HbA1c(%) ?eAG(mg/dL) 6.0 ?126 6.5 ?140 7.0 ?154 7.5 ?169 8.0 ?183 8.5 ?197 9.0 ?212 9.5 ?226 10.0 ? 240 Limitations: The eAG calculation has not been validated on women, individuals below 18 years old and above 70 years old, and individuals with hemoglobinopathies. Additional resources are available on [facility] ADA website. Scooby MALDONADO, Nba J, Sydnee R, et al. ??Tr anslating the A1C assay into estimated average glucose values. ??Diabetes Care 2008:31(8):0677-9158. Specimen Anatomical Collection Method Collection Time Receive d Time (Source) Location / / Volume Laterality Blood 10/05/2021 8:39 AM 8:52 EDT AM EDT Resulting Agency Comment Spec In Lab Donell Hernandez MD CHEMISTRY ORDERABLES Performing Organization Address City/State/ZIP Code Phon e Number [place] [address] Copper, serum (10/05/2021 8:39 AM EDT) athologist Signature Copper 1.24 0.75 - 1.45 SYLVIA GARRISON mcg/mL [facility] LABORATORY Comment: ADDITIONAL INFORMATIO N This test was developed and its performa nce characteristics determined by [facility] in a manner co nsistent with CLIA requirements. This test has not been carlos ared or approved by the U.S. Food and Drug Administration. Test Performed by: [facility] [address] [place] [address] [address] Small Lot Operator: Van White M.D. Ph. D.; CLIA# [id number] Specimen Anatomical Collection Method Collection Time Receive d Time (Source) Location / / Volume Laterality Blood 10/05/2021 8:39 AM 2 EDT 10:42 AM EDT Resulting Agency Comment Spec In Lab Nicky Baez MD CHEMISTRY ORDERABLES Performing Organization Address City/State/ZIP Code Phon e Number [address] (ABNORMAL) Protein Electrophoresis, serum (10/05/2021 8:39 AM EDT) Patholo gist Method Time Signature Total Prot 6.8 6.1 - 8.0 SYLVIA Elec g/dL [facility] LABORATORY Albumin Elect 3.76 3.60 - 6.00 SYLVIA g/dL [facility] LABORATORY Alpha1-Globul 0.20 0.10 - 0.30 SYLVIA in g/dL [facility] LABORATORY Alpha2-Globul 0.72 0.40 - 0.90 SYLVIA in g/dL [facility] LABORATORY Beta Globulin 0.61 0.50 - 1.00 SYLVIA g/dL [facility] LABORATORY Gamma 1.60 (H) 0.50 - 1.30 SYLVIA Globulin g/dL [facility] LABORATORY M1 Band None None SYLVIA Detected Detected [facility] LABORATORY Specimen Anatomical Collection Method Collection Time Receive d Time (Source) Location / / Volume Laterality Blood 10/05/2021 8:39 AM 2 8:52 EDT AM EDT Narrative This result has an attachment that is no t available. Resulting Agency Comment Spec In Lab Nicky Baez MD CHEMISTRY ORDERABLES Performing Organization Address City/[facility]/[place] [address] Direct antiglobulin test (10/05/2021 8:39 AM EDT) P athologist Signature GUILHERME Negative [facility] LABORATORY Specimen Anatomical Collection Method Collection Time Receive d Time (Source) Location / / Volume Laterality Blood 10/05/2021 8:39 AM 2 8:44 EDT AM EDT Resulting Agency Comment Spec In Lab Nicky Baez MD BLOOD BANK ORDERABLES Performing Organization Address [facility]/ZIP Code Phon e Number [address] Lactate Dehydrogenase (10/05/2021 8:39 AM EDT) P athologist Signature LDH 134 110 - 220 [facility] unit/L [facility] LABORATORY Specimen Anatomical Collection Method Collection Time Receive d Time (Source) Location / / Volume Laterality Blood 10/05/2021 8:39 AM 2 8:52 EDT AM EDT Resulting Agency Comment Spec In Lab Nicky Baez MD CHEMISTRY ORDERABLES Performing Organization Address [facility] [place] [address] (ABNORMAL) Reticulocyte Count (10/05/2021 8:39 AM EDT) Patholo gist Method Time Signature Retic Ct % 2.6 0.7 - 2.6 [facility] % [facility] LABORATORY Retic Ct Abs 0.070 0.030 - [facility] 0.120 [facility] x10(6)/[facility] L LABORATORY Immature Retic% 17.2 (H) 0.0 - [facility] 15.6 % [facility] LABORATORY Reticulated Hgb 24.5 (L) 31.3 - [facility] 40.2 pg [facility] LABORATORY Specimen Anatomical Collection Method Collection Time Receive d Time (Source) Location / / Volume Laterality Blood 10/05/2021 8:39 AM 8:52 EDT AM EDT Resulting Agency Comment Spec In Lab Nicky Baez MD HEMATOLOGY ORDERABLES Performing Organization Address City/[facility] Phon e Number [address] TSH (10/05/2021 8:39 AM EDT) P athologist Signature TSH 3.91 0.27 - 4.20 SYLVIA GARRISON mcIU/mL [facility] LABORATORY Comment: Reference Interval (mcIU/mL): Females: ??First Trimester: 0.23-3.88 ??Second Trimester: 0.22-3.90 ??Third Trimester: 0.44-4.66 Specimen Anatomical Collection Method Collection Time Receive d Time (Source) Location / / Volume Laterality Blood 10/05/2021 8:39 AM 2 8:52 EDT AM EDT Resulting Agency Comment Spec In Lab Nicky Baez MD CHEMISTRY ORDERABLES Performing Organization Address City/State/ZIP Code Phon e Number [address] Folate, serum (10/05/2021 8:39 AM EDT) athologist Signature Folate Lvl >20.0 4.8 - 24.2 SYLVIA MELI ng/mL [facility] LABORATORY Specimen Anatomical Collection Method Collection Time Receive d Time (Source) Location / / Volume Laterality Blood 10/05/2021 8:39 AM 2 8:52 EDT AM EDT Resulting Agency Comment Spec In Lab Nicky Baez MD CHEMISTRY ORDERABLES Performing Organization Address City/[facility]/ZIP Code Phon e Number [address] Vitamin B12 (10/05/2021 8:39 AM EDT) athologist Signature Vitamin B-12 1,177 232 - 1,245 SYLVIA MELI pg/mL [facility] LABORATORY Specimen Anatomical Collection Method Collection Time Receive d Time (Source) Location / / Volume Laterality Blood 10/05/2021 8:39 AM 2 8:52 EDT AM EDT Resulting Agency Comment Spec In Lab Nicky Baez MD CHEMISTRY ORDERABLES Performing Organization Address City/[facility]/ZIP Code Phon e Number [address] Ferritin (10/05/2021 8:39 AM EDT) athologist Signature Ferritin 71 30 - 400 SYLVIA MUROCOCK ng/mL [facility] LABORATORY Comment: Pediatric reference ranges not verified at [facility], interpret with caution. Reference ranges for females greater tristan n 50 years of age approach values for men, i.e., 30-400 ng/mL. Specimen Anatomical Collection Method Collection Time Receive d Time (Source) Location / / Volume Laterality Blood 10/05/2021 8:39 AM 8:52 EDT AM EDT Resulting Agency Comment Spec In Lab Nicky Baez MD CHEMISTRY ORDERABLES Performing Organization Address City/[facility]/ZIP Code Phon e Number [address] (ABNORMAL) Iron and TIBC (10/05/2021 8:39 AM EDT) Analysis Performed At Patho logist Time Signature Iron 37 (L) 45 - 160 [facility] mcg/dL [facility] LABORATORY TIBC 190 (L) 250 - 450 [facility] mcg/dL [facility] LABORATORY Iron Saturation 19 (L) 20 - 50 % [facility] LABORATORY Specimen Anatomical Collection Method Collection Time Receive d Time (Source) Location / / Volume Laterality Blood 10/05/2021 8:39 AM 8:52 EDT AM EDT Resulting Agency Comment Spec In Lab Nicky Baez MD CHEMISTRY ORDERABLES Performing Organization Address City/[facility]/ZIP [facility] [place] [address] (ABNORMAL) Comprehensive metabolic panel (non-fasting) (10/05/2021 8:39 AM EDT) P athologist Signature Glucose Lvl 118 65 - 199 [facility] mg/dL [facility] LABORATORY Comment: Diabetes: >=200 mg/dL plus symp toms BUN 44 (H) 10 - 20 mg/dL [facility] LABORATORY Creatinine 3.50 (H) 0.80 - 1.50 mg/dL [facility] LABORATORY Sodium 138 135 - 145 mmol/L [facility] LABORATORY Potassium 5.2 (H) 3.5 - 5.0 mmol/L [facility] LABORATORY Comment: Please note: ??Patients with WBC >100,00 0 may have falsely elevated Potassium levels. ??For accurate Potassium quantif ication in these patients send serum separator tube (gold top) for subsequent determinations. ??Contact the Clinical Chemistry Laboratory if there are any qu estions. Chloride 111 (H) 98 - 107 mmol/L [facility] LABORATORY CO2 19 (L) 22 - 31 mmol/L [facility] LABORATORY Anion Gap 8 5 - 15 mmol/L [facility] LABORATORY Calcium 9.0 8.5 - 10.5 mg/dL [facility] LABORATORY Total Protein 7.1 6.1 - 8.0 g/dL [facility] LABORATORY Albumin 3.5 3.2 - 5.2 g/dL [facility] LABORATORY AST 10 0 - 39 unit/L [facility] LABORATORY ALT 8 0 - 55 unit/L [facility] LABORATORY Alk Phos 108 40 - 130 unit/L [facility] LABORATORY Total Bilirubin 0.3 0.2 - 1.3 mg/dL [facility] LABORATORY Estimated GFR 17 (L) >=60 mL/min/1.73 m?? [facility] LABORATORY Comment: This patient? s estimated [...] Organization Address City/State/[place] [address] (ABNORMAL) Urinalysis Microscopic Exam (10/05/2021 5:20 AM EDT) Analysis Performed At Patho logist Time Signature RBC UA 5 (H) 0 - 3 /HPF [facility] LABORATORY WBC UA 1 0 - 3 /HPF [facility] LABORATORY Bacteria UA Many (A) None /HPF [facility] LABORATORY Squam Epith UA 1 <=4 /HPF [facility] LABORATORY Specimen Anatomical Collection Method Collection Time Receive d Time (Source) Location / / Volume Laterality Clean Catch 10/05/2021 5:20 AM 2 8:56 Urine EDT AM EDT Resulting Agency Comment Spec In Lab Alejo Garnett MD URINE ORDERABLES Performing Organization Address City/[facility]/[place] [address] (ABNORMAL) Protein/Creatinine Ratio, urine (10/05/2021 5:20 AM EDT) Analysis Performed At [facility] Time Signature U Creatinine 69 mg/dL [facility] LABORATORY U Protein Ran 104 (H) 0 - 12 [facility] LABORATORY Prot/Cre Ratio 1.5 ratio [facility] LABORATORY Specimen Anatomical Collection Method Collection Time Receive d Time (Source) Location / / Volume Laterality Urine 10/05/2021 5:20 AM 2 8:55 EDT AM EDT Resulting Agency Comment Spec In Lab Alejo Garnett MD URINE ORDERABLES Performing Organization Address City/[facility]/[place] [address] (ABNORMAL) Urinalysis with reflex Culture (10/05/2021 5:20 AM EDT) Patholo gist Method Time Signature Glucose UA Negative Negative [facility] LABORATORY Protein UA 100 (A) Negative [facility] mg/dL [facility] LABORATORY Bilirubin UA Negative Negative [facility] MELI mg/dL [facility] LABORATORY Comment: Clinical correlation required for positi [...] CARE HOSPITAL LABORATORY Nitrite UA Negative Negative [facility] LABORATORY Leukocytes UA Negative Negative [facility] LABORATORY Appearance UA Clear Clear [facility] LABORATORY Spec Watson UA 1.014 1.005 - 1.030 [facility] LABORATORY Color UA Yellow Yellow [facility] LABORATORY Culture Reflexed No [facility] LABORATORY Specimen Anatomical Collection Method Collection Time Receive d Time (Source) Location / / Volume Laterality Clean Catch 10/05/2021 5:20 AM 8:56 Urine EDT AM EDT Resulting Agency Comment Spec In Lab Alejo Garnett MD URINE ORDERABLES Performing Organization Address City/State/[place] [address] documented in this encounter [...] apy documented in this encounter Care Teams Spool Sander Relationship Specialty Start Date End Date Violetta Sanford MD PCP - General 04/02/14 [address] [place] [address] documented as of this encounter
--- OUTSIDE RECORDS SUMMARY | 2022-06-16 12:23 | XMS_ITS | Encounter Summary ---
:1955 Author Organization [facility] [place] [address] Care Team Providers Name Role Phone Violetta Sanford MD Primary Care Provider Encounter Details Date Type Department Care Team Description 10/23/2021 Hospital [place] [address] Social History Tobacco Use Types Packs/Day [...] Use to continuously 1 each 0 2 [place] Misc monitor blood glucose. Scan at least [...] 6 kit 3 01/13/2021 Day Sensor Kit [facility]Non-Drug; Combo Route) route every 14 days. Use to continuously monitor blood glucose. Scan at least 5 times per day. DX: E11.65 darbepoetin cristy in Inject 300 mg as 0 polysorbat 10 mcg/0.4 directed as needed. mL Syringe cyanocobalamin, Take 100 mcg by mouth 0 Vitamin B-12, daily. (Vitamin B-12) 100 mcg Tablet Blood-Glucose Sensor by [facility].(Non-Drug; 0 (Dexcom G6 Sensor) Combo Route) route. 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 Tablet Sustained Release 24 hr amLODIPine (Norvasc) Take 0.5 tablets by 90 tablet 3 2019 10 mg Tablet mouth daily. fluticasone INSTILL 2 SPRAYS INTO 0 09/06/2019 propionate (FLONASE) EACH NOSTRIL ONCE A 50 mcg/actuation DAY NEEDED Mather, Suspension albuterol (PROVENTIL) Take 3 mLs by [...] 100 each 3 03/09/2017 disposable, 29 gauge [facility].(Non-Drug; Combo x 1/2 Route) route 3 times [...] Rojas MD [facility] Neurology [place], [place] [phone] (Wo rk) 06/29/2022 Appointment Cardiology Violetta Sanford M D [address] [place], [place] [address] (Wo rk) 06/30/2022 Infusion Hematology and Oncology 07/14/2022 Infusion Hematology and Oncology 07/28/2022 Infusion Hematology and Oncology 08/11/2022 Infusion Hematology and Oncology 08/16/2022 Office Visit Audiology Mindy Moody AUD [facility] AUDIOLOGY [place], [place] [address] (Wo rk) 11/04/2022 Office Visit Rheumatology Dante Freedman PA [facility] RHEUMATOLOGY [place], [place] 0[address] (Wo rk) documented as of this encounter Visit Diagnoses Not on filedocumented in this encounter Care Teams Wet Cotton Feeder Relationship Specialty Start Date End Date Violetta Sanford MD PCP - General 04/02/14 [address] [place], [place] [address] documented as of this encounter
--- OUTSIDE RECORDS SUMMARY | 2022-06-16 12:23 | XMS_ITS | Encounter Summary ---
:1955 Author Organization [facility] [place] [address] Care Team Providers Name Role Phone Violetta Sanford MD Primary Care Provider Encounter Details Date Type Department Care Team Description 10/22/2021 [facility] Giovana tyler HEMATOLOGY/[place] [address] DEPT. [phone] [place], [place] [address] (Oscar rk) Social History Tobacco [...] [facility] Neurology [place], [place] [phone] (Wo rk) 06/29/2022 Appointment Cardiology Violetta Sanford M D [address] [place] [address] (Wo rk) 06/30/2022 Infusion Hematology and Oncology 07/14/2022 Infusion Hematology and Oncology 07/28/2022 Infusion Hematology and Oncology 08/11/2022 Infusion Hematology and Oncology 08/16/2022 Office Visit Audiology Mindy Moody AUD [facility] AUDIOLOGY [place], [place] [address] (Wo rk) 11/04/2022 Office Visit Rheumatology Dante Freedman, PA [facility] RHEUMATOLOGY [place], [place] [address] (Wo rk) documented as of this encounter Visit Diagnoses Not on filedocumented in this encounter Care Teams Safety Patrol Officer Relationship Specialty Start Date End Date Violetta Sanford MD PCP - General 04/02/14 [address] [place] [address] documented as of this encounter
--- OUTSIDE RECORDS SUMMARY | 2022-06-16 12:23 | XMS_ITS | Encounter Summary ---
:1955 [place] [address] Care Team Providers Name Role Phone Violetta Sanford MD Primary Care Provider Encounter Details Date Type Department Care Team Description 10/28/2021 Telephone Otolaryngology at [facility] [place] [address] Social History Tobacco Use Types Packs/Day [...] 10/28/2021 9:22 AM EDTSummary: Image Request - [facility] From: Niyah Ricci Sent: Thursday, October 28, 2021 9:21 AM To: '[email or web address]' <[email or web address]> Subject: Urgent Image Request Patient: Leroy Torres : 1955 [place], The above patient was referred to our ENT clinic at [facility]. Patient had images done at your facility and are needed here for proper transition. Please forward the images & reports NED for our provider to review. Specific images & reports we are looking for are CT Scan done 2020. Please send them electronically to [facility] to the attention of Dr. Iraj Scott. If you do not have the capability to send electronically please send the images & reports on a disc to: [facility] Department of Otolaryngology [address] [place], [place] [id number] Please use FedEx number [id number] to overnight the disc Thank you, Niyah Ricci Sr. Clinical Sexual Assault Nurse, Oral & Maxillofacial Surgery, Otolaryngology, and Audiology [facility] phone: [phone] fax: [phone] documented in this encounter Plan of Treatment Upcoming Encounters Date Type Specialty Care Team Description 06/16/2022 Infusion Hematology and Oncology 06/21/2022 Office Visit Neurology Tyler Rojas MD [facility] Neurology [place] [phone] (Wo rk) 06/29/2022 Appointment Cardiology Violetta Sanford M D [facility] [address] TE [address] [place] [phone] (Wo rk) 06/30/2022 Infusion Hematology and Oncology 07/14/2022 Infusion Hematology and Oncology 07/28/2022 Infusion Hematology and Oncology 08/11/2022 Infusion Hematology and Oncology 08/16/2022 Office Visit Audiology Mindy Moody AUD [facility] AUDIOLOGY DEPT [place], [place] [address] (Wo rk) 11/04/2022 Office Visit Rheumatology Dante Freedman PA [facility] RHEUMATOLOGY [place], [place] [address] (Wo rk) documented as of this encounter Visit Diagnoses Not on filedocumented in this encounter Care Teams Valve Assembler Relationship Specialty Start Date End Date Violetta Sanford MD PCP - General 04/02/14 [address] [place] [address] documented as of this encounter
--- OUTSIDE RECORDS SUMMARY | 2022-06-16 12:23 | XMS_ITS | Encounter Summary ---
:1955 Author Organization [facility] [place] [place] [address] Care Team Providers Name Role Phone Violetta Sanford MD Primary Care Provider Encounter Details Date Type Department Care Team Description 10/22/2021 Laboratory Appointment Lab 3L [facility] Renal osteodystrophy; [place] CKD (chronic kidney disease) stage 4, GFR 15-29 ml/min; [facility] Anemia of chronic renal failure, stage 4 (severe) [place] [address] Social History Tobacco Use Types Packs/Day Years [...] Rojas MD [facility] Neurology [place], [place] [address] (Wo rk) 06/29/2022 Appointment Cardiology Violetta Sanford M D [address] [place] [address] (Oscar escobedo) 06/30/2022 Infusion Hematology and Oncology 07/14/2022 Infusion Hematology and Oncology 07/28/2022 Infusion Hematology and Oncology 08/11/2022 Infusion Hematology and Oncology 08/16/2022 Office Visit Audiology Mindy Moody AUD [facility] AUDIOLOGY DEPT [place], [place] [address] (Wo rk) 11/04/2022 Office Visit Rheumatology Dante Freedman PA [facility] RHEUMATOLOGY [place], [place] [address] (Wo rk) documented as of [...] Results Differential, Automated (10/22/2021 11:44 AM EDT) athologist Signature Neutrophils % 59.5 % [facility] Neutr Abs (ANC) 3.57 1.70 - [facility] 6.10 [facility] x10(3)/[facility] LABORATORY Lymphocytes % 26.1 % [facility] Lymphocytes Abs 1.6 0.9 - 3.2 [facility] x10(3)/[facility] LABORATORY Monocytes % 10.5 % [facility] Monocyte Abs 0.6 0.3 - 0.9 [facility] x10(3)/[facility] LABORATORY Eosinophils % 2.8 % [facility] Eosinophils Abs 0.2 0.0 - 0.4 [facility] x10(3)/[facility] LABORATORY Basophils % 0.8 % [facility] Basophils Abs 0.0 0.0 - 0.1 [facility] x10(3)/[facility] LABORATORY Immature Gran % 0.30 % [facility] Comment: Immature granulocytes(IG's)percentage an d absolute count will include metamyelocytes, myelocytes, and promyelo cytes. Blood smears from CBCs yielding IG's will be scanned manually for concor dance. If this scan disagrees with the automated IG or if promyelocytes are not ed, a manual differential will be performed. Courtney Gran Abs 0.02 0.00 - 0.04 x10(3)/[facility] MAR Y [facility] LABORATORY Specimen Anatomical Collection Method Collection Time Receive d Time (Source) Location / / Volume Laterality Blood 10/22/2021 11:44 10/22/2021 AM EDT 11:58 AM EDT Resulting Agency Comment Spec In Lab Nicky Baez MD HEMATOLOGY ORDERABLES Performing Organization Address City/State/[place] [address] (ABNORMAL) Comprehensive metabolic panel (non-fasting) (10/22/2021 11:44 AM EDT) athologist Signature Glucose Lvl 118 65 - 199 [facility] mg/dL [facility] Comment: Diabetes: >=200 mg/dL plus symp toms BUN 47 (H) 10 - 20 mg/dL [facility] Creatinine 3.78 (H) 0.80 - 1.50 mg/dL [facility]OR[facility]ORY Sodium 135 135 - 145 mmol/L [facility] Potassium 5.7 (H) 3.5 - 5.0 mmol/L [facility] Comment: Please note: ??Patients with WBC >100,00 0 may have falsely elevated Potassium levels. ??For accurate Potassium quantif ication in these patients send serum separator tube (gold top) for subsequent determinations. ??Contact the Clinical Chemistry Laboratory if there are any qu estions. Chloride 110 (H) 98 - 107 mmol/L [facility] CO2 17 (L) 22 - 31 mmol/L [facility] Anion Gap 8 5 - 15 mmol/L [facility] Calcium 9.0 8.5 - 10.5 mg/dL [facility] Total Protein 7.3 6.1 - 8.0 g/dL [facility] Albumin 3.6 3.2 - 5.2 g/dL [facility] AST 13 0 - 39 unit/L [facility] ALT 12 0 - 55 unit/L [facility] Alk Phos 111 40 - 130 unit/L [facility] Total Bilirubin 0.3 0.2 - 1.3 mg/dL [facility] LABORATORY Estimated GFR 15 (L) >=60 mL/min/1.73 m?? [facility] Comment: This patient? s estimated [...] Organization Address City/State/[place] [address] (ABNORMAL) Hemogram (10/22/2021 11:44 AM EDT) Analysis Performed At Patho logist Time Signature WBC 6.0 4.0 - 9.5 [facility] x[facility](3[facility] LABORATORY RBC 2.76 (L) 4.58 - JERE MELI 5.54 [facility] x10(6)/[facility] LABORATORY Hemoglobin 8.2 (L) 13.7 - [facility] 16.[facility] g/dL [facility] Hematocrit 27.1 (L) 40.5 - [facility] 48.5 % [facility] MCV 98.2 (H) 82.9 - [facility] MELI 93.1 [facility] LABORATORY MCH 29.7 27.5 - [place] MELI 32.1 pg [facility] MCHC 30.3 (L) 32.0 - [facility] MELI 35.7 g/dL [facility] Platelets 169 145 - 357 [facility] x10(3)/[facility] LABORATORY RDWSD 51.1 (H) 36.0 - [facility] MELI 45.0 [facility] LABORATORY RDWCV 14.3 (H) 11.4 - [facility] MELI 13.8 % [facility] LABORATORY MPV 8.3 7.6 - 12.9 [facility] nRBC % Auto 0.0 % [facility] nRBC Abs Auto 0.000 0.000 - [facility].000 [facility] x10(3)/[facility] LABORATORY Specimen Anatomical Collection Method Collection Time Receive d Time (Source) Location / / Volume Laterality Blood 10/22/2021 11:44 10/22/2021 AM EDT 11:58 AM EDT Resulting Agency Comment Spec In Lab Margaret Purvis APRN HEMATOLOGY ORDERABLES Performing Organization Address City/State/[place] [address] (ABNORMAL) Prothrombin Time (10/22/2021 11:44 AM EDT) P athologist Signature PT 12.7 (H) 9.4 - 12.5 [facility] LABORATORY INR 1.1 [facility] Comment: An INR <2.0 indicates [...] Organization Address City/State/ZIP Code Phon e Number [address] APTT (10/22/2021 11:44 AM EDT) P athologist Signature PTT 30 25 - 37 sec [facility] Comment: The PTT is NOT [...] Organization Address City/State/[place] [address] documented in this encounter Visit Diagnoses Diagnosis Renal osteodystrophy CKD (chronic kidney disease) stage 4, GF R 15-29 ml/min Chronic kidney disease, Stage IV (severe ) Anemia of chronic renal failure, stage 4 (severe) documented in this encounter Care Teams Supervisor Instrument Repair Relationship Specialty Start Date End Date Violetta Sanford MD PCP - General 04/02/14 [address] [facility] [address] [place] [address] documented as of this encounter
--- OUTSIDE RECORDS SUMMARY | 2022-06-16 12:23 | XMS_ITS | Encounter Summary ---
:1955 Author Organization [facility] [address] Care Team Providers Name Role Phone Violetta Sanford MD Primary Care Provider Encounter Details Date Type Department Care Team Description 10/01/2021 Orders Only Radiology at [facility] Richar Lo MD [facility] [place] [address] [place] [address] [phone] (Wo rk) Social History Tobacco Use Types [...] [facility] Neurology [place], [place] [address] (Wo rk) 06/29/2022 Appointment Cardiology Violetta Sanford M D [address] [place] [address] (Wo rk) 06/30/2022 Infusion Hematology and Oncology 07/14/2022 Infusion Hematology and Oncology 07/28/2022 Infusion Hematology and Oncology 08/11/2022 Infusion Hematology and Oncology 08/16/2022 Office Visit Audiology Mindy Moody AUD [facility] AUDIOLOGY DEPT [place], [place] [address] (Wo rk) 11/04/2022 Office Visit Rheumatology Dante Freedman PA [facility] RHEUMATOLOGY [place], [place] [address] (Wo rk) documented as of this encounter Visit Diagnoses Not on filedocumented in this encounter Care Teams Bakery Sales Clerk Relationship Specialty Start Date End Date Violetta Sanford MD PCP - General 04/02/14 [address] [place] [address] documented as of this encounter
--- OUTSIDE RECORDS SUMMARY | 2022-06-16 12:23 | XMS_ITS | Encounter Summary ---
:1955 Author Organization [facility] [place] [address] Care Team Providers Name Role Phone Violetta Sanford MD Primary Care Provider Reason for Referral Diagnostic Test (Routine) - Authorized Specialty Diagnoses / Procedures Referred By Contact Refer red To Contact Radiology Diagnoses ETD (Eustachian tube dysfunction), left Iraj Scott MD [facility] Rad Ct Scan Procedures CT Temporal Bone wo Contrast (Generic) [facility] [place] [address] [place] [address] Referral ID Status Reason Start Expiration Visits Visits Date Date Requested Authorized [id number] Authorized Specialty 11/19/2021 05/21/2023 1 1 Service Requested Encounter Details Date Type Department Care Team Description 11/19/2021 Orders Only Otol[facility]ology at [facility] Iraj Scott MD ETD (Eustachian tube [facility] D rive [facility]), [place] [address] CENTER [phone] OTOLARYNGOLOGY [place], [place] [address] Social History Tobacco Use Types [...] Tyler Rojas MD [facility] Neurology [place], [place] [phone] (Wo rk) 06/29/2022 Appointment Cardiology Violetta Sanford M D [address] [place], [place] [id number] (Wo rk) 06/30/2022 Infusion Hematology and Oncology 07/14/2022 Infusion Hematology and Oncology 07/28/2022 Infusion Hematology and Oncology 08/11/2022 Infusion Hematology and Oncology 08/16/2022 Office Visit Audiology Mindy Moody AUD [facility] AUDIOLOGY DEPT [place], [place] [address] (Wo rk) 11/04/2022 Office Visit Rheumatology Dante Freedman PA [facility] RHEUMATOLOGY [place], [place] [address] (Wo rk) Scheduled Orders Name Type Priority Associated Diagnoses Order S chedule CT Temporal Bone wo Imaging Routine ETD (Eustachian tube Expected: 12/03/2021 Contrast (Generic) dysfunction), left (Ap proximate), Expires: 2021 documented as of this encounter Visit Diagnoses Diagnosis ETD (Eustachian tube dysfunction), left documented in this encounter Care Teams Fitness Technician Relationship Specialty Start Date End Date Violetta Sanford MD PCP - General 04/02/14 [address] [place], [place] [address] documented as of this encounter
--- OUTSIDE RECORDS SUMMARY | 2022-06-16 12:23 | XMS_ITS | Encounter Summary ---
:1955 Author Organization [facility] [place] [address] Care Team Providers Name Role Phone Violetta Sanford MD Primary Care Provider Encounter Details Date Type Department Care Team Description 11/11/2021 Office Visit Hematology/Oncology Diomedes Baez MD [facility] DR HEMATOLOGY/[place] [address] Anemia of chronic at [facility] Margaret Purvis APRN [facility] DR HEMATOLOGY/[place] [address] renal failure, stage [address] 4 (severe) [place] [address] Social History Tobacco Use Types [...] renal insufficiency. Followed by Dr Garnett at [facility]. Seen for epo supplementation. Patient [...] ??? Prophylactic immunotherapy ??? Persistent proteinuria ??? long-term current use of immunosuppressive drug ??? Aftercare [...] full anemia panel while he was at [facility]. Results are listed below. Aranesp 300 mcg [...] Rojas MD [facility] Neurology [place], [place] [phone] (Oscar escobedo) 06/29/2022 Appointment Cardiology Violetta Sanford M D [address] [place] [address] (Oscar escobedo) 06/30/2022 Infusion Hematology and Oncology 07/14/2022 Infusion Hematology and Oncology 07/28/2022 Infusion Hematology and Oncology 08/11/2022 Infusion Hematology and Oncology 08/16/2022 Office Visit Audiology Mindy Moody AUD [facility] AUDIOLOGY DEPT [place], [place] [address] (Wo rk) 11/04/2022 Office Visit Rheumatology Dante Freedman, PA [facility] RHEUMATOLOGY [place], [place] [address] (Wo rk) documented as of this encounter Visit Diagnoses Diagnosis Anemia of chronic renal failure, stage 4 (severe) documented in this encounter Care Teams Life Skills Consultant Relationship Specialty Start Date End Date Violetta Sanford MD PCP - General 04/02/14 [address] [place] [address] documented as of this encounter
--- OUTSIDE RECORDS SUMMARY | 2022-06-16 12:23 | XMS_ITS | Encounter Summary ---
:1955 Author Organization [facility] [place] [address] Care Team Providers Name Role Phone Violetta Sanford MD Primary Care Provider Encounter Details Date Type Department Care Team Description 10/26/2021 Office Visit Audiology at [facility] Mindy Moody, Asymmetrical sensorineural h earing loss; [facility] AUD Tinnitus, bilateral Drive [place], [place] CENTER [address] AUDIOLOGY DEPT [phone] [place], [place] [address] Social History Tobacco Use Types Packs/Day Years Used Date Smoking Tobacco: Former Cigarettes 2 20 Quit : 01/19/1993 Smokeless Tobacco: Never Alcohol Use Standard Drinks/Week Comments Yes 0 (1 standard drink = 0.6 oz pure alcoho l) Once a year Sex Assigned at Date Recorded Not on file documented as of this encounter Progress Notes Mindy Moody AUD - 10/26/2021 1:00 PM ED[place] [address] Leroy Torres was seen today for an audiologic evaluation in conjunction with Dr. Scott. Please refer to audiogram under procedures for details on history, results and recommendations. Lien Ferris Clinical [place] [address] ; documented in this encounter Plan of Treatment Upcoming Encounters Date Type Specialty Care Team Description 06/16/2022 Infusion Hematology and Oncology 06/21/2022 Office Visit Neurology Tyler Rojas MD [facility] Neurology [place], [place] [phone] (Wo rk) 06/29/2022 Appointment Cardiology Violetta Sanford M D [address] [place] [address] (Wo rk) 06/30/2022 Infusion Hematology and Oncology 07/14/2022 Infusion Hematology and Oncology 07/28/2022 Infusion Hematology and Oncology 08/11/2022 Infusion Hematology and Oncology 08/16/2022 Office Visit Audiology Mindy Moody AUD [facility] AUDIOLOGY DEPT [place], [place] [address] (Wo rk) 11/04/2022 Office Visit Rheumatology Dante Freedman PA [facility] RHEUMATOLOGY [place], [place] [address] (Wo rk) documented as of [...] for hearing aid check as scheduled Mindy [facility] ORDERABLE S Performing Organization Address City/State/ZIP Code Phon e Number [employer] documented in this encounter Visit Diagnoses Diagnosis Asymmetrical sensorineural hearing loss Sensorineural hearing loss, asymmetrical Tinnitus, bilateral Unspecified tinnitus documented in this encounter Care Teams Administrative Appeals Tribunal Member Relationship Specialty Start Date End Date Violetta Sanford MD PCP - General 04/02/14 [address] [place] [address] documented as of this encounter
--- OUTSIDE RECORDS SUMMARY | 2022-06-16 12:23 | XMS_ITS | Encounter Summary ---
:1955 Author Organization [place] [address] Care Team Providers Name Role Phone Violetta Sanford MD Primary Care Provider Encounter Details Date Type Department Care Team Description 10/01/2021 Notes Only Radiology at [facility] Richar Lo MD [facility] [place] [address] [place] [address] [phone] (Wo rk) Social History Tobacco Use Types [...] COPD (chronic obstructive pulmonary disease) J44.9 ??? oysterman current use of immunosuppressive drug Z79.899 ??? [...] Gilberto 2 Sensor Kit 1 each by [facility] [place] [place].(Non-Drug; Combo Route) route every 14 days. Use to continuously monitor blood glucose. Scan at least 4 times per day. 6 kit 3 ??? FreeStyle Gilberto 2 [place] [facility] [place] [place] Use to continuously monitor blood glucose. Scan [...] 14 Day Sensor Kit 1 each by [facility] [place] [place].(Non-Drug; Combo Route) route every 14 days. Use [...] Blood-Glucose Sensor (Dexcom G6 Sensor) Device by [facility] [place] [place].(Non-Drug; Combo Route) route. Sensor, supervisor paste mixing andtransmitter ??? metoprolol succinate XL (Toprol-XL) 50 mg Tablet Sustained Release 24 hr Take 1 tablet by mouth daily. 90 tablet 1 ??? amLODIPine (Norvasc) 10 mg Tablet Take 0.5 tablets by mouth daily. 90 tablet 3 ??? fluticasone propionate (FLONASE) 50 mcg/actuation [place], Suspension INSTILL 2 SPRAYS INTO EACH NOSTRIL [...] Reported on 08/06/2016 ??? Miscellaneous Medical Supply [facility] [...] Tyler Rojas MD [facility] Neurology [place], [place] [phone] (Wo rk) 06/29/2022 Appointment Cardiology Violetta Sanford M D [address] [address] (Wo rk) 06/30/2022 Infusion Hematology and Oncology 07/14/2022 Infusion Hematology and Oncology 07/28/2022 Infusion Hematology and Oncology 08/11/2022 Infusion Hematology and Oncology 08/16/2022 Office Visit Audiology Mindy Moody AUD [facility] AUDIOLOGY [place], [place] [address] (Wo rk) 11/04/2022 Office Visit Rheumatology Dante Freedman PA [facility] RHEUMATOLOGY [place], [place] [address] (Wo rk) documented as of this encounter Visit Diagnoses Not on filedocumented in this encounter Care Teams Automatic Print Developer Relationship Specialty Start Date End Date Violetta Sanford MD PCP - General 04/02/14 [address] [place] [address] documented as of this encounter
--- OUTSIDE RECORDS SUMMARY | 2022-06-16 12:23 | XMS_ITS | Encounter Summary ---
:1955 Author Organization [facility] [place] [address] Care Team Providers Name Role Phone Violetta Sanford MD Primary Care Provider Reason for Referral Diagnostic Test (Routine) - Closed Specialty Diagnoses / Procedures Referred By Contact Refer red To Contact Radiology Diagnoses Anemia, unspecified type Margaret Purvis APRN [facility] Rad Ct Scan Procedures CT Guided Biopsy Bone Marrow [facility] HEMATOLOGY/[place] [address] [place] [address] Referral ID Status Reason Start Date Expiration Date Visits V isits Requested Authorized [id number] Closed Specialty 09/30/2021 04/02/2023 1 1 Service Requested Encounter Details Date Type Department Care Team Description 09/30/2021 Orders Only Hematology and Margaret Purvis, Anemia, unspecified Oncology at [facility] SALES ATTENDANT type [facility] [place] [address] HEMATOLOGY/ONCOLOG [phone] Y DEPT. [place], [place] [address] Social History Tobacco Use Types [...] Rojas MD [facility] Neurology [place], [place] [phone] (Wo rk) 06/29/2022 Appointment Cardiology Violetta Sanford M D [address] [place] [address] (Wo rk) 06/30/2022 Infusion Hematology and Oncology 07/14/2022 Infusion Hematology and Oncology 07/28/2022 Infusion Hematology and Oncology 08/11/2022 Infusion Hematology and Oncology 08/16/2022 Office Visit Audiology Mindy Moody AUD [facility] AUDIOLOGY DEPT [place], [place] [address] (Wo rk) 11/04/2022 Office Visit Rheumatology Dante Freedman PA [facility] RHEUMATOLOGY [place], [place] [address] (Wo rk) documented as of [...] who have questions please contact the health field care coordinator that requested your imaging first. ? Narrative [...] re- procedural time-out was performed as per [facility] protocol. The patient was place d in [...] barrier technique was utilized. The 11-gauge [employer] bone marrow bio psy set was employed. [...] re- procedural time-out was performed as per [facility] protocol. The patient was place d in [...] barrier technique was utilized. The 11-gauge [employer] bone marrow bio psy set was employed. [...] ho have questions please contact the health field care coordinator that requested your imaging first. Margaret Purvis SALES ATTENDANT IMG CT ORDERABLES documented in this encounter Visit Diagnoses Diagnosis Anemia, unspecified type Renal tubular acidosis Other specified disorders resulting from impaired renal function Renal osteodystrophy Anemia, unspecified type documented in this encounter Care Teams Customer Engineer Relationship Specialty Start Date End Date Violetta Sanford MD PCP - General 04/02/14 [address] [place] [address] documented as of this encounter
--- OUTSIDE RECORDS SUMMARY | 2022-06-16 12:23 | XMS_ITS | Encounter Summary ---
:1955 Author Organization [facility] Address [facility] [place] [address] Care Team Providers Name Role Phone Violetta Sanford MD Primary Care Provider Encounter Details Date Type Department Care Team Description 10/26/2021 Office Visit Audiology at [facility] Mindy Moody, Asymmetrical [facility] AUD sensorineural hearing [address] [facility] [place], [place] [facility] [address] AUDIOLOGY DEPT [phone] [place], [place] [address] Social History Tobacco Use Types [...] dome at the end. There was no cotton roll packer information available.The Brian's were counseled that these hearing aids are likely personal sound amplifiers, and they are not able to be adjusted in the clinic. It is recommended that a hearing aid check be scheduled to assess the [facility] hearing aids. Lien Ferris Clinical [place] [address] ; documented in this encounter Plan of Treatment Upcoming Encounters Date Type Specialty Care Team Description 06/16/2022 Infusion Hematology and Oncology 06/21/2022 Office Visit Neurology Tyler Rojas MD [facility] Neurology [place], [place] [phone] (Wo rk) 06/29/2022 Appointment Cardiology Violetta Sanford M D [address] [place], [place] [address] (Wo rk) 06/30/2022 Infusion Hematology and Oncology 07/14/2022 Infusion Hematology and Oncology 07/28/2022 Infusion Hematology and Oncology 08/11/2022 Infusion Hematology and Oncology 08/16/2022 Office Visit Audiology Mindy Moody AUD [facility] AUDIOLOGY DEPT [place], [place] [address] (Wo rk) 11/04/2022 Office Visit Rheumatology Dante Freedman PA [facility] RHEUMATOLOGY [place], [place] [address] (Wo rk) documented as of this encounter Visit Diagnoses Diagnosis Asymmetrical sensorineural hearing loss Sensorineural hearing loss, asymmetrical documented in this encounter Care Teams Sewer Repairer Relationship Specialty Start Date End Date Violetta Sanford MD PCP - General 04/02/14 [address] [place] [address] documented as of this encounter
--- OUTSIDE RECORDS SUMMARY | 2022-06-16 12:23 | XMS_ITS | Encounter Summary ---
:1955 Author Organization [facility] [place] [address] Care Team Providers Name Role Phone Violetta Sanford MD Primary Care Provider Reason for Visit Reason Comments IV Medication Venofer Injections Aranesp Treatment/Therapy Plan Authorization (Routine) - Pending Review Specialty Diagnoses / Procedures Referred By Contact Refer red To Contact Diagnoses CKD (chronic kidney disease) stage 4, GFR 15-29 ml/min Nicky Baez MD [facility] D R HEMATOLOGY/[place] [address] Referral ID Status Reason Start Date Expiration Date Visits V isits Requested Authorized [id number] Pending 11/10/2021 11/10/2022 99 99 Review Encounter Details Date Type Department Care Team Description 11/18/2021 Infusion Hematology Oncology at [facility] of chronic renal [facility] failure, stage 4 (severe) [address] [place] [phone] Social History Tobacco Use Types [...] MD [facility] Neurology [place], [place] [phone] (Oscar escobedo) 06/29/2022 Appointment Cardiology Violetta Sanford M D [address] [place] [address] (Oscar escobedo) 06/30/2022 Infusion Hematology and Oncology 07/14/2022 Infusion Hematology and Oncology 07/28/2022 Infusion Hematology and Oncology 08/11/2022 Infusion Hematology and Oncology 08/16/2022 Office Visit Audiology Mindy Moody AUD [facility] AUDIOLOGY DEPT [place], [place] [address] (Wo rk) 11/04/2022 Office Visit Rheumatology Dante Freedman PA [facility] RHEUMATOLOGY [place], [place] [address] (Wo rk) documented as of this encounter Procedures Procedure Name Priority Date/Time Associated Diagnosis Comme nts POCT GLUCOSE Routine 11/18/2021 12:53 PM Results for this EDT procedure are i n the results section . documented in this encounter Results POCT Glucose (11/18/2021 12:53 PM EDT) P athologist Signature POC Glucose 165 [address] - [address] [facility] mg/dL [facility] Comment: Supplemental ranges: <140 mg/dL before meals <180 mg/dL all other times of the day Specimen Anatomical Collection Method Collection Time Receive d Time (Source) Location / / Volume Laterality Blood 11/18/2021 12:53 11/18/2021 PM EDT 12:[address] Cami Croft MD POINT OF CARE TEST ORDERABLE S Performing Organization Address City/State/[place] [address] documented in this encounter [...] tolerability. documented in this encounter Care Teams Prefinish Operator Relationship Specialty Start Date End Date Violetta Sanford MD PCP - General 04/02/14 [address] [place] [address] documented as of this encounter
--- OUTSIDE RECORDS SUMMARY | 2022-06-16 12:23 | XMS_ITS | Encounter Summary ---
:1955 Author Organization [facility] [address] Care Team Providers Name Role Phone Violetta Sanford MD Primary Care Provider Reason for Referral Diagnostic Test (Routine) - Closed Specialty Diagnoses / Procedures Referred By Contact Refer red To Contact Radiology Diagnoses Anemia, unspecified type Margaret Purvis APRN [facility] Rad Ct Scan Procedures CT Guided Biopsy Bone Marrow [facility] HEMATOLOGY/[place] [address] [place] [address] Referral ID Status Reason Start Date Expiration Date Visits V isits Requested Authorized [id number] Closed Specialty 09/30/2021 04/02/2023 1 1 Service Requested Reason for Visit Diagnostic Test (Routine) - Closed Specialty Diagnoses / Procedures Referred By Contact Refer red To Contact Radiology Diagnoses Anemia, unspecified type Margaret Purvis APRN [facility] Rad Ct Scan Procedures CT Guided Biopsy Bone Marrow [facility] HEMATOLOGY/[place] [address] [place] [address] Referral ID Status Reason Start Date Expiration Date Visits V isits Requested Authorized [id number] Closed Specialty 09/30/2021 04/02/2023 1 1 Service Requested Encounter Details Date Type Department Care Team Description 10/22/[address] Scan at [facility] Margaret Purvis Renal tubular acidosis; [facility] M, FURNACE SETTER Renal osteodystrophy; [facility] Anemia, unspecified type [place], [place] CENTER [address] HEMATOLOGY/ONCOL [phone] [place] [address] Social History Tobacco Use Types Packs/Day Years [...] Bragg RN - 10/22/2021 2:46 PM EDT [facility] Vascular and Interventional Radiology Biopsy Discharge [...] will be reported to you byyour primary tree care foreman or the clinician who ordered the biopsy. Please do not call us for results as we will not have them. If you have not been contacted by your clinician within 5 business days you should call that officefor further information. When to call the Interventional Radiology Department: Please call with any questions or concerns. Ifit is during regular office hours, please call [phone]. If it is after regular office hours, oron weekends or holidays, please call [phone] and ask to speak to the Claims Adjuster on callfor Interventional Radiology. You have received [...] Use to continuously 1 each 0 2 [place] [facility] monitor blood glucose. Scan [...] times daily. TabletIndications: Chronic atrial fibrillation FreeStyle Gliberto 14 1 each by 6 kit 3 01/13/2021 Day Sensor Kit [facility]Non-Drug; Combo Route) route every 14 days. Use to continuously monitor blood glucose. Scan at least 5 times per day. DX: E11.65 darbepoetin cristy in Inject 300 mg as 0 polysorbat 10 mcg/0.4 directed as needed. mL Syringe cyanocobalamin, Take 100 mcg by mouth 0 Vitamin B-12, daily. (Vitamin B-12) 100 mcg Tablet Blood-Glucose Sensor by [facility]Non-Drug; 0 (Dexcom G6 Sensor) Combo Route) route. Device Sensor, clinical informatics physician andtransmitter metoprolol succinate Take 1 tablet by mouth 90 tablet 1 04/2020 XL (Toprol-XL) 50 mg daily. Tablet Sustained Release 24 hr amLODIPine (Norvasc) Take 0.5 tablets by 90 tablet 3 2019 10 mg Tablet mouth daily. fluticasone INSTILL 2 SPRAYS INTO 0 09/06/2019 propionate (FLONASE) EACH NOSTRIL ONCE A 50 mcg/actuation DAY NEEDED [place], Suspension albuterol (PROVENTIL) Take 3 mLs by [...] Devices by 4 each 0 12/02/2015 Supply [facility]Non-Drug; Combo [...] Male Date of : 1955 Telephone Number: [phone] (home) Telephone Information: PCP Violetta Sanford MD [phone] Date/Time of call: October 23, 2021/9:12 AM Procedure: Bone Biopsy Procedural Provider: Dr. Suki Lo Contact with patient or if not, with whom? no Message left on answering machine? [X] Yes Comments (if applicable): Angel Bragg RN - 10/22/2021 2:30 PM EDT [facility] Name: LEROY DAILEY Date of : 1955 AGE: 66 y.o. Address: [address] [place] [id number] Phone: [phone] (home) Mobile: Telephone Information: Referring Provider: Margaret Purvis REASON FOR VISIT: Order Questions Answers Where will study be performed? [facility] Radiology [120] Laterality Radiologist's Discretion Is the [...] Allergies Allergen Reactions ??? Penicillins Anaphylaxis ??? Iftikahr Inhibitors Cough ??? Clindamycin Hcl Rash ??? [...] COPD (chronic obstructive pulmonary disease) J44.9 ??? nursing home current use of immunosuppressive drug Z79.899 [...] COPD (chronic obstructive pulmonary disease) J44.9 ??? watermelon inspector current use of immunosuppressive drug Z79.899 [...] Gilberto 2 Sensor Kit 1 each by [facility]Non-Drug; Combo Route) route every 14 days. Use to continuously monitor blood glucose. Scan at least 4 times per day. 6 kit 3 ??? FreeStyle Gilberto 2 [place] [facility] Use to continuously monitor [...] 14 Day Sensor Kit 1 each by [facility]Non-Drug; Combo Route) route every [...] Blood-Glucose Sensor (Dexcom G6 Sensor) Device by [facility]Non-Drug; Combo Route) route. Sensor, clinical informatics physician andtransmitter ??? metoprolol succinate XL (Toprol-XL) 50 mg Tablet Sustained Release 24 hr Take 1 tablet by mouth daily. 90 tablet 1 ??? amLODIPine (Norvasc) 10 mg Tablet Take 0.5 tablets by mouth daily. 90 tablet 3 ??? fluticasone propionate (FLONASE) 50 mcg/actuation [place], Suspension INSTILL 2 SPRAYS INTO EACH NOSTRIL [...] Needle 1 Device by [facility]Non- Drug; Combo Route) route [...] Reported on 08/06/2016 ??? Miscellaneous Medical Supply [facility] 4 Devices by [facility]Non-Drug; Combo Route) route daily. [...] Rojas MD [facility] Neurology [place], [place] [phone] (Wo rk) 06/29/2022 Appointment Cardiology Violetta Sanford M D [address] [place] [address] (Wo rk) 06/30/2022 Infusion Hematology and Oncology 07/14/2022 Infusion Hematology and Oncology 07/28/2022 Infusion Hematology and Oncology 08/11/2022 Infusion Hematology and Oncology 08/16/2022 Office Visit Audiology Mindy Moody AUD [facility] AUDIOLOGY DEPT [place], [place] [address] (Wo rk) 11/04/2022 Office Visit Rheumatology Dante Freedman PA [facility] RHEUMATOLOGY [place], [place] [address] (Wo rk) documented as of [...] Routine 10/22/2021 3:05 PM Anemia, unspecifi ed (MC/CGP/APD) EDT type POCT GLUCOSE Routine 10/22/2021 2:15 [...] have questions please contact the health home care nurse that requested your imaging first. ? Electronically signed by: Richar Lo MD , [facility] ([phone]), at 10/22/2021 4:08 PM Narrative 10/22/2021 4:08 [...] re- procedural time-out was performed as per [facility] protocol. The patient was place [...] barrier technique was utilized. The 11-gauge [employer] bone marrow bio psy set was employed. [...] re- procedural time-out was performed as per [facility] protocol. The patient was place [...] barrier technique was utilized. The 11-gauge [employer] bone marrow bio psy set was employed. [...] have questions please contact the health home care nurse that requested your imaging first. Margaret Purvis FURNACE SETTER IMG CT ORDERABLES chromo report acquired (10/22/2021 3:05 PM EDT) Component Value Ref Test Analysis Performed At [facility] Range Method Time Signature Cytogenetics Final Report JERE Acquired Report MELI JAYANT RIAL ? [id number] HOSPITAL LABORATORY Specimen Type: Bone Marrow Specimen Condition: ~3.0mls, adequate. Collection Date/Time: 10/22/2021 15:05 Received Date/Time: 10/23/2021 14:04 Indication: ??Anemia ---Results--- Please see the chromosome an alysis scanned report in eD-H corresponding to this bone marrow specimen. This report was completed by [facility] and is located in 'Chart Rev iew' under the 'Media' tab. The document name is titled External Genetic S maria alejandra. ---Karyotype--- see comments ---Preparation--- Culture Type: 24 and 48 hour short term cultures(OTHER) FISH Method: ??N/A ---Comments--- The specimen was referred to [facility] ([place], [place], Tel: ) for cytogenetic be lysis. ..22 (Electronic Signature) Verified By: Gerson Ph.D., [facility] [address], [facility] A Clinical Cruise Guide/Heritage Consultant Specimen Anatomical Collection Method Collection Time Receive d Time (Source) Location / / Volume Laterality 10/22/2021 3:05 PM 2 2:04 EDT PM EDT Margaret Purvis APRN HEMATOLOGY ORDERABLES Performing Organization Address City/State/ZIP Code [place] [address] Bone Marrow Final Report (10/22/2021 3:05 PM EDT) Component Value Ref Test Analysis Performed At [facility] Range Method Time Signature Bone Marrow [id number] ? Location: 3Z JERE Final Report MELI The signing pathologist has [...] MD Verified: ??10/23/2021 17:30 ??Hematopathologist Performed at: ??-[facility] Dept. of Pathology, [place], [place] DISCUSSION No morphologic evidence of significant [...] ring sideroblasts. DIFFERENTIAL Band/Seg 44%; Lymph 7%; Eagle 0%; Eos 9%; Baso 0%; Metamyelocyte 4%; [...] plasma cells represent 5-10% of alphonso lularity [place] ? Polytypic plasma cell staining Lambda ?Polytypic plasma cell staining Note: The immunoperoxidase s tains reported above were developed and their performance characteristics determined by [facility] Clinical Laboratories. ??They have not been cleared [...] x 0.2 cm. Tissue Description: Cores of pink-aikne bone. Sections/Processing: Blocks submitted for decalcification: A1. Entirely submitted in 1 cassette labeled A1. ??pps Specimen (Source) Anatomical Collection Method Collection Time Re ceived Time Location / / Volume Laterality 10/22/2021 3:05 PM EDT Margaret Purvis FURNACE SETTER PATHOLOGY/CYTOLOGY ORDERABLE S Performing Organization Address City/[facility]/ZIP Code Phon e Number [address] Myeloid Seq Panel (10/22/2021 3:05 PM EDT) Specimen Anatomical Collection Method Collection Time Receive d Time (Source) Location / / Volume Laterality Bone Marrow 10/22/2021 3:05 PM 2 9:24 EDT AM EDT Resulting Agency Comment Spec In Lab Margaret Ramirez Yaniv [place] CHEMISTRY ORDERABLES Performing Organization Address City/[facility]/ZIP Code Phon e Number [address] Iron Stain, Bone Marrow (10/22/2021 3:05 PM EDT) [facility] Method Time Signature Iron Stain BM See Comment [facility] LABORATORY Comment: See Bone Marrow Report [id number] under Hematopathology Reports. Specimen Anatomical Collection Method Collection Time Receive d Time (Source) Location / / Volume Laterality Bone Marrow 10/22/2021 3:05 PM 2 3:27 EDT PM EDT Resulting Agency Comment Spec In Lab Margaret Purvis APRN HEMATOLOGY ORDERABLES Performing Organization Address [facility]/ZIP Code Phon e Number [address] POCT Glucose (10/22/2021 2:15 PM EDT) P athologist Signature POC Glucose 112 65 - 199 [facility] mg/dL [facility] LABORATORY Comment: Supplemental ranges: <140 mg/dL before meals <180 mg/dL all other times of the day Specimen Anatomical Collection Method Collection Time Receive d Time (Source) Location / / Volume Laterality Blood 10/22/2021 2:15 PM 2 2:15 EDT PM EDT Margaret Ramirez Yaniv [place] POINT OF CARE TEST ORDERABLE S Performing Organization Address City/[facility]/ZIP Code Phon e Number [address] APTT (10/22/2021 11:44 AM EDT) P athologist Signature PTT 30 25 - 37 sec [facility] LABORATORY Comment: The PTT is NOT [...] Agency Comment Spec In Lab Margaret Purvis FURNACE SETTER HEMATOLOGY ORDERABLES Performing Organization Address [facility] Code Phon e Number [address] (ABNORMAL) Prothrombin Time (10/22/2021 11:44 AM EDT) P athologist Signature PT 12.7 (H) 9.4 - 12.5 [facility] LABORATORY INR 1.1 [facility] LABORATORY Comment: An INR <2.0 indicates [...] Agency Comment Spec In Lab Margaret Royns FURNACE SETTER HEMATOLOGY ORDERABLES Performing Organization Address City/[facility] [place] [address] (ABNORMAL) Hemogram (10/22/2021 11:44 AM EDT) Analysis Performed At Patho logist Time Signature WBC 6.0 4.0 - 9.5 [facility] x10(3)/[facility] LABORATORY RBC 2.76 (L) 4.58 - [facility] 5.54 MEMORIAL x10(6)/[facility] LABORATORY Hemoglobin 8.2 (L) 13.7 - [facility] g/dL [facility] LABORATORY Hematocrit 27.1 (L) 40.5 - [facility] 48.5 % [facility] LABORATORY MCV 98.2 (H) 82.9 - [facility].[address] [facility] LABORATORY MCH 29.7 27.5 - [facility] 32.1 pg [facility] LABORATORY MCHC 30.3 (L) 32.0 - [facility] 35.7 g/dL [facility] LABORATORY Platelets 169 145 - 357 [facility] x10(3)/[facility] LABORATORY RDWSD 51.1 (H) 36.0 - JERE MELI 45.0 [facility] LABORATORY RDWCV 14.3 (H) 11.4 - [facility] 13.8 % [facility] LABORATORY MPV 8.3 7.6 - 12.9 [facility] LABORATORY nRBC % Auto 0.0 % [facility] LABORATORY nRBC Abs Auto 0.000 0.000 - [facility] 0.000 [facility] x10(3)/[facility] LABORATORY Specimen Anatomical Collection Method Collection Time Receive d Time (Source) Location / / Volume Laterality Blood 10/22/2021 11:44 10/22/2021 AM EDT 11:58 AM EDT Resulting Agency Comment Spec In Lab Margaret Purvis FURNACE SETTER HEMATOLOGY ORDERABLES Performing Organization Address City/State/[place] [address] documented in this encounter [...] mg documented in this encounter Care Teams Argon Tester Relationship Specialty Start Date End Date Violetta Sanford MD PCP - General 04/02/14 [address] [place] [address] documented as of this encounter
--- OUTSIDE RECORDS SUMMARY | 2022-06-16 12:24 | XMS_ITS | Encounter Summary ---
:1955 Author Organization [facility] [address] Care Team Providers Name Role Phone Violetta Sanford MD Primary Care Provider Reason for Visit Reason Comments Injections Aranesp Treatment/Therapy Plan Authorization (Routine) - Authorized Specialty Diagnoses / Procedures Referred By Contact Refer red To Contact Hematology and Diagnoses CKD (chronic kidney disease) stage 4, GFR 15-29 ml/min Nicky Baez Elizabeth Oncology Procedures MD James NUR MD [address] HEMATOLOGY/ONCOLOGY [place], [place]PT. [address] [place] [address] Referral ID Status Reason Start Date Expiration Date Visits V isits Requested Authorized [id number] Authorized 10/08/2020 07/24/2023 99 99 Encounter Details Date Type Department Care Team Description 09/16/2021 Infusion Hematology Oncology at [facility] D (chronic kidney disease) [facility] stage 4, GFR 15-29 ml/min [address] [place] [phone] Social History Tobacco Use Types [...] Tyler Rojas MD [facility] Neurology [place], [place] [phone] (Oscar escobedo) 06/29/2022 Appointment Cardiology Violetta Sanford M D [address] [place] [address] (Oscar escobedo) 06/30/2022 Infusion Hematology and Oncology 07/14/2022 Infusion Hematology and Oncology 07/28/2022 Infusion Hematology and Oncology 08/11/2022 Infusion Hematology and Oncology 08/16/2022 Office Visit Audiology Mindy Moody AUD [facility] AUDIOLOGY DEPT [place], [place] [address] (Oscar escobedo) 11/04/2022 Office Visit Rheumatology Dante Freedman PA [facility] RHEUMATOLOGY [place], [place] [address] (Wo rk) documented as of [...] (CKD) documented in this encounter Care Teams Superintendent Logging Relationship Specialty Start Date End Date Violetta Sanford MD PCP - General 04/02/14 [address] [place] [address] documented as of this encounter
--- OUTSIDE RECORDS SUMMARY | 2022-06-16 12:24 | XMS_ITS | Encounter Summary ---
:1955 Author Organization [facility] [place] [address] Care Team Providers Name Role Phone Violetta Sanford MD Primary Care Provider Reason for Visit Reason Onset Date Comments Labs Only 03/25/2021 Lab Tracking Encounter Details Date Type Department Care Team Description 03/25/2021 Telephone Hematology/Oncology at [facility], Labs Only (Lab Tracking) [facility] Angelica Gilbert RN [address] [place] [phone] Social History Tobacco Use Types Packs/Day [...] 1:38 PM EDT LAB TRACKING Brett Dailey [id number] 1955 DIAGNOSIS: anemia d/t CKD stage IV, h/o kidney transplant LABS: CBC every 3 weeks MEDICATIONS: Aranesp 300 mcg every 3 weeks if HGB <12 ASSESSMENT/PLAN: Lab sent to Carrie Trotter APRN for review. Will continue every 3 week CBC and Aranesp. Will go to lab at [facility] 1 hr prior to infusion appts here [...] [facility] Neurology [place], [place] [phone] (Wo rk) 06/29/2022 Appointment Cardiology Violetta Sanford M D [facility] [address] [place] [phone] (Wo rk) 06/30/2022 Infusion Hematology and Oncology 07/14/2022 Infusion Hematology and Oncology 07/28/2022 Infusion Hematology and Oncology 08/11/2022 Infusion Hematology and Oncology 08/16/2022 Office Visit Audiology Mindy Moody AUD [facility] AUDIOLOGY DEPT [place], [place] [address] (Wo rk) 11/04/2022 Office Visit Rheumatology Dante Freedman PA [facility] RHEUMATOLOGY [place], [place] [address] (Wo rk) documented as of [...] filedocumented in this encounter Care Teams Manufacturing Technology Professor Relationship Specialty Start Date End Date Violetta Sanford MD PCP - General 04/02/14 [address] [place] [address] documented as of this encounter
--- OUTSIDE RECORDS SUMMARY | 2022-06-16 12:24 | XMS_ITS | Encounter Summary ---
:1955 Author Organization [facility] [place] [address] Care Team Providers Name Role Phone Violetta Sanford MD Primary Care Provider Encounter Details Date Type Department Care Team Description 04/16/2021 Telephone Solid Organ [place]plant [place] [phone] Social History Tobacco Use Types Packs/Day [...] called to report he [facility] for and had a boil lanced. [...] Rojas MD [facility] [place], [place] [phone] (Wo rk) 06/29/2022 Appointment Cardiology Violetta Sanford M D [address] [place], [place] [address] (Wo rk) 06/30/2022 Infusion Hematology and Oncology 07/14/2022 Infusion Hematology and Oncology 07/28/2022 Infusion Hematology and Oncology 08/11/2022 Infusion Hematology and Oncology 08/16/2022 Office Visit Audiology Mindy Moody AUD [facility] AUDIOLOGY [place], [place] [address] (Wo rk) 11/04/2022 Office Visit Rheumatology Dante Freedman PA [facility] RHEUMATOLOGY [place], [place] [address] (Wo rk) documented as of this encounter Visit Diagnoses Not on filedocumented in this encounter Care Teams Body Stylist Relationship Specialty Start Date End Date Violetta Sanford MD PCP - General 04/02/14 [address] [place], [place] [address] documented as of this encounter
--- OUTSIDE RECORDS SUMMARY | 2022-06-16 12:24 | XMS_ITS | Encounter Summary ---
:1955 Author Organization [facility] [place] [address] Care Team Providers Name Role Phone Violetta Sanford MD Primary Care Provider Reason for Visit Reason Onset Date Comments Labs Only 05/27/2021 lab tracking Encounter Details Date Type Department Care Team Description 05/27/2021 Telephone Hematology/Oncology at Brittany Vera RN Labs Only (lab tracking) [address] [phone] Social History Tobacco Use Types [...] 1:22 PM EDT LAB TRACKING Brett Dailey [id number] 1955 DIAGNOSIS: anemia d/t CKD stage IV, [...] Rojas MD [facility] Neurology [place], [place] [phone] (Wo rk) 06/29/2022 Appointment Cardiology Violetta Sanford M D [address] [place] [address] (Wo rk) 06/30/2022 Infusion Hematology and Oncology 07/14/2022 Infusion Hematology and Oncology 07/28/2022 Infusion Hematology and Oncology 08/11/2022 Infusion Hematology and Oncology 08/16/2022 Office Visit Audiology Mindy Moody AUD [facility] AUDIOLOGY DEPT [place], [place] [address] (Wo rk) 11/04/2022 Office Visit Rheumatology Dante Freedman PA [facility] RHEUMATOLOGY [place], [place] [address] (Wo rk) documented as of this encounter Visit Diagnoses Not on filedocumented in this encounter Care Teams Incident Response Lead Relationship Specialty Start Date End Date Violetta Sanford MD PCP - General 04/02/14 [address] [place] [address] documented as of this encounter
--- OUTSIDE RECORDS SUMMARY | 2022-06-16 12:24 | XMS_ITS | Encounter Summary ---
:1955 Author Organization [facility] [place] [address] Care Team Providers Name Role Phone Violetta Sanford MD Primary Care Provider Reason for Visit Reason Comments Injections SQ Aranesp Treatment/Therapy Plan Authorization (Routine) - Authorized Specialty Diagnoses / Procedures Referred By Contact Refer red To Contact Hematology and Diagnoses CKD (chronic kidney disease) stage 4, GFR 15-29 ml/min Nicky Baez Elizabeth Oncology Procedures MD James NUR MD [address] HEMATOLOGY/ONCOLOGY [place], [place] DEPT. [address] [place] [address] Referral ID Status Reason Start Date Expiration Date Visits V isits Requested Authorized [id number] Authorized 10/08/2020 07/24/2023 99 99 Encounter Details Date Type Department Care Team Description 07/08/2021 Infusion Hematology Oncology at [facility] D (chronic kidney disease) [facility] stage 4, GFR 15-29 ml/min [address] [place] [address] [phone] Social History Tobacco Use Types [...] Aranesp Injection Labs: 06/24/21 - H/H - 8.5.3. Patient stated that Dr. Baez ordered labs [...] [facility] Neurology [place], [place] [phone] (Oscar rk) 06/29/2022 Appointment Cardiology Violetta Sanford M D [facility] [address] [place] [address] (Wo rk) 06/30/2022 Infusion Hematology and Oncology 07/14/2022 Infusion Hematology and Oncology 07/28/2022 Infusion Hematology and Oncology 08/11/2022 Infusion Hematology and Oncology 08/16/2022 Office Visit Audiology Mindy Moody AUD [facility] [place]IOLOGY [place], [place] [address] (Oscar escobedo) 11/04/2022 Office Visit Rheumatology Dante Freedman PA [facility] [place]HEUMATOLOGY [place], [place] [address] (Wo rk) documented as [...] (CKD) documented in this encounter Care Teams Whipped Topping Mixer Relationship Specialty Start Date End Date Violetta Sanford MD PCP - General 04/02/14 [address] [place] [address] documented as of this encounter
--- OUTSIDE RECORDS SUMMARY | 2022-06-16 12:24 | XMS_ITS | Encounter Summary ---
:1955 Author Organization [facility] [place] [address] Care Team Providers Name Role Phone Violetta Sanford MD Primary Care Provider Reason for Visit Reason Comments Medication Refill Encounter Details Date Type Department Care Team Description 06/22/2021 [facility] Giovana tyler [place] [address] [place] [address] [phone] (Oscar rk) Social History Tobacco Use Types [...] MD [facility] Neurology [place], [place] [phone] (Wo rk) 06/29/2022 Appointment Cardiology Violetta Sanford M D [address] [place] [address] (Oscar rk) 06/30/2022 Infusion Hematology and Oncology 07/14/2022 Infusion Hematology and Oncology 07/28/2022 Infusion Hematology and Oncology 08/11/2022 Infusion Hematology and Oncology 08/16/2022 Office Visit Audiology Mindy Moody AUD [facility] AUDIOLOGY [place], [place] 0[address] (Wo rk) 11/04/2022 Office Visit Rheumatology Dante Freedman, PA [facility] RHEUMATOLOGY [place], [place] 0[address] (Wo rk) documented as of this encounter Visit Diagnoses Not on filedocumented in this encounter Care Teams Buck Swamper Relationship Specialty Start Date End Date Violetta Sanford MD PCP - General 04/02/14 [address] [place] [address] documented as of this encounter
--- OUTSIDE RECORDS SUMMARY | 2022-06-16 12:24 | XMS_ITS | Encounter Summary ---
:1955 Author Organization [place] [address] Care Team Providers Name Role Phone Violetta Sanford MD Primary Care Provider Reason for Visit Reason Comments Injections Aranesp Treatment/Therapy Plan Authorization (Routine) - Authorized Specialty Diagnoses / Procedures Referred By Contact Refer red To Contact Hematology and Diagnoses CKD (chronic kidney disease) stage 4, GFR 15-29 ml/min Nicky Baez Elizabeth Oncology Procedures MD James NUR MD [address] HEMATOLOGY/ONCOLOGY [place], [place]PT. [address] [place] [address] Referral ID Status Reason Start Date Expiration Date Visits V isits Requested Authorized [id number] Authorized 10/08/2020 07/24/2023 99 99 Encounter Details Date Type Department Care Team Description 08/19/2021 Infusion Hematology Oncology at [facility] D (chronic kidney disease) [facility] stage 4, GFR 15-29 ml/min [address] [place] [address] [phone] Social History Tobacco Use Types [...] Treatment: Aranesp Injection Labs: Done monthly at [facility], 08/19/21 - H/H - 9.6/.7 Aranesp 300 mcg injected in right arm. Patient aware to call clinic with any questions or concerns. Plan: Return to clinic as scheduled. documented in this encounter Plan of Treatment Upcoming Encounters Date Type Specialty Care Team Description 06/16/2022 Infusion Hematology and Oncology 06/21/2022 Office Visit Neurology Tyler Rojas MD [facility] Neurology [place], [place] [phone] ([facility]) 06/29/2022 Appointment Cardiology Violetta Sanford M D [facility] ALON[address] Miller [address] [address] ([facility]) 06/30/2022 Infusion Hematology and Oncology 07/14/2022 Infusion Hematology and Oncology 07/28/2022 Infusion Hematology and Oncology 08/11/2022 Infusion Hematology and Oncology 08/16/2022 Office Visit Audiology Mindy Moody AUD [facility] AUDIOLOGY DEPT [place], [place] [address] ( gregg) 11/04/2022 Office Visit Rheumatology Dante Freedman PA [facility] RHEUMATOLOGY [place], [place] [address] (Wo rk) documented [...] documented in this encounter Care Teams Control Room Helper Relationship Specialty Start Date End Date Violetta Sanford MD PCP - General 04/02/14 [address]ino [address] [place] [address] documented as of this encounter
--- OUTSIDE RECORDS SUMMARY | 2022-06-16 12:24 | XMS_ITS | Encounter Summary ---
:1955 Author Organization [facility] [place] [address] Care Team Providers Name Role Phone Violetta Sanford MD Primary Care Provider Encounter Details Date Type Department Care Team Description 05/27/2021 Office Visit Hematology/Oncology Nicky Baez [facility] stage 4, GFR [address] [facility] 15-29 ml/[place] [address] HEMATOLOGY/ONCOLOGY [phone] DEPT. [place], [place] [address] (Wo rk) Social History Tobacco [...] EDT documented in this encounter Progress Notes Nciky Baez MD - 05/27/2021 12:30 PM EDT Subjective: Patient ID: Leroy Torres is a 66 y.o. 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 Followed by Dr Garnett at [facility]. Seen for epo supplementation. Patient Active Problem List Diagnosis ??? Essential hypertension ??? Renal osteodystrophy ??? Other postherpetic nervous system involvement ??? Renal tubular acidosis ??? Hypervolemia ??? PAF (paroxysmal atrial fibrillation) ??? Phantom limb pain ??? Chronic atrial fibrillation ??? CKD (chronic kidney disease) stage 4, GFR 15-29 ml/min ??? Prophylactic immunotherapy ??? Persistent proteinuria ??? snf current use of immunosuppressive drug ??? Aftercare [...] Tyler Rojas MD [facility] Neurology [place], [place] [phone] (Wo rk) 06/29/2022 Appointment Cardiology Violetta Sanford M D [address] [place], [place] [address] (Wo rk) 06/30/2022 Infusion Hematology and Oncology 07/14/2022 Infusion Hematology and Oncology 07/28/2022 Infusion Hematology and Oncology 08/11/2022 Infusion Hematology and Oncology 08/16/2022 Office Visit Audiology Mindy Moody AUD [facility] AUDIOLOGY DEPT [place], [place] 0[address] (Wo rk) 11/04/2022 Office Visit Rheumatology Dante Freedman PA [facility] RHEUMATOLOGY [place], [place] 0[address] (Wo rk) documented as of [...] ) documented in this encounter Care Teams Inclinometer Tester Relationship Specialty Start Date End Date Violetta Sanford MD PCP - General 04/02/14 [address] [place] [address] documented as of this encounter
--- OUTSIDE RECORDS SUMMARY | 2022-06-16 12:24 | XMS_ITS | Encounter Summary ---
:1955 Author Organization [facility] [place] [address] Care Team Providers Name Role Phone Violetta Sanford MD Primary Care Provider Reason for Visit Reason Onset Date Comments Follow-up 05/11/2021 Encounter Details Date Type Department Care Team Description 05/11/2021 Telephone Rheumatology at [facility] [place] [address] Social History Tobacco Use Types Packs/Day Years [...] Tyler Rojas MD [facility] [address] [place], [place] [phone] (Wo rk) 06/29/2022 Appointment Cardiology Violetta Sanford M D [address] [place], [place] [address] (Wo rk) 06/30/2022 Infusion Hematology and Oncology 07/14/2022 Infusion Hematology and Oncology 07/28/2022 Infusion Hematology and Oncology 08/11/2022 Infusion Hematology and Oncology 08/16/2022 Office Visit Audiology Mindy Moody, WENDI [facility] AUDIOLOGY [place], [place] 0[address] (Wo rk) 11/04/2022 Office Visit Rheumatology Dante Freedman, PA [facility] RHEUMATOLOGY [place], [place] [address] ( rk) documented as of this encounter Visit Diagnoses Not on filedocumented in this encounter Care Teams Gas Jockey Relationship Specialty Start Date End Date Violetta Sanford MD PCP - General 04/02/14 [address] [place] [address] documented as of this encounter
--- OUTSIDE RECORDS SUMMARY | 2022-06-16 12:24 | XMS_ITS | Encounter Summary ---
:1955 Author Organization [facility] [place] [address] Care Team Providers Name Role Phone Violetta Sanford MD Primary Care Provider Encounter Details Date Type Department Care Team Description 03/31/2021 Telephone Solid Organ Transpla nt at [facility] [place] [address] Social History Tobacco Use Types Packs/Day [...] Rojas MD [facility] Neurology [place], [place] [phone] (Wo rk) 06/29/2022 Appointment Cardiology Violetta Sanford M D [facility] [address] [place], [place] [id number] (Oscar rk) 06/30/2022 Infusion Hematology and Oncology 07/14/2022 Infusion Hematology and Oncology 07/28/2022 Infusion Hematology and Oncology 08/11/2022 Infusion Hematology and Oncology 08/16/2022 Office Visit Audiology Mindy Moody, [facility] AUDIOLOGY DEPT [place], [place] [address] (Wo rk) 11/04/2022 Office Visit Rheumatology Dante Freedman, DA [facility] RHEUMATOLOGY [place], [place] 0[address] (Wo rk) documented as of this encounter Visit Diagnoses Not on filedocumented in this encounter Care Teams Fiberglass Dowel Drawing Operator Relationship Specialty Start Date End Date Violetta Sanford MD PCP - General 04/02/14 [facility] AL[address] [place] [address] documented as of this encounter
--- OUTSIDE RECORDS SUMMARY | 2022-06-16 12:24 | XMS_ITS | Encounter Summary ---
:1955 Author Organization [facility] [address] Care Team Providers Name Role Phone Violetta Sanford MD Primary Care Provider Reason for Visit Reason Onset Date Comments Labs Only 06/24/2021 Lab Tracking Encounter Details Date Type Department Care Team Description 06/24/2021 Telephone Hematology/Oncology at [facility], Labs Only (Lab Tracking) [facility] Angelica Gilbert RN [address] [place] [phone] Social History Tobacco Use Types Packs/Day [...] 1:53 PM EST LAB TRACKING Brett Dailey [id number] 1955 DIAGNOSIS: anemia d/t CKD stage IV, h/o kidney transplant LABS: CBC every 4 weeks as of 05/27/21 MEDICATIONS: Aranesp 300 mcg every 2 weeks if HGB <12 as of 05/27/21 ASSESSMENT/PLAN: Labs sent to provider for review. Will get aranesp today. Labs again in 1 month 07/22/21. Addendum: [facility] called with Critical creatinine 4.4 today- [...] Rojas MD [facility] Neurology [place], [place] [address] (Wo rk) 06/29/2022 Appointment Cardiology Violetta Sanford M D [facility] ALONDRA Miller [address] [address] (Wo rk) 06/30/2022 Infusion Hematology and Oncology 07/14/2022 Infusion Hematology and Oncology 07/28/2022 Infusion Hematology and Oncology 08/11/2022 Infusion Hematology and Oncology 08/16/2022 Office Visit Audiology Mindy Moody AUD [facility] AUDIOLOGY DEPT [place], [place] [address] (Wo rk) 11/04/2022 Office Visit Rheumatology Dante Freedman PA [facility] RHEUMATOLOGY [place], [place] [address] (Wo rk) documented as of [...] on filedocumented in this encounter Care Teams Results Technician Relationship Specialty Start Date End Date Violetta Sanford MD PCP - General 04/02/14 [address] [place] [address] documented as of this encounter
--- OUTSIDE RECORDS SUMMARY | 2022-06-16 12:24 | XMS_ITS | Encounter Summary ---
:1955 Author Organization [facility] [place] [address] Care Team Providers Name Role Phone Violetta Sanford MD Primary Care Provider Encounter Details Date Type Department Care Team Description 08/19/2021 Telephone Solid Organ Transplant at Taj Garrison APRN [facility] Giovana tyler [place] [address] [place] [address] [phone] (Wo rk) Social History Tobacco Use Types [...] the following: Received call from lab at [facility] in [facility] for critical results of Cr 4.2 [...] Rojas MD [facility] Neurology [place], [place] [address] (Wo rk) 06/29/2022 Appointment Cardiology Violetta Sanford M D [address] [place], [place] [id number] (Wo rk) 06/30/2022 Infusion Hematology and Oncology 07/14/2022 Infusion Hematology and Oncology 07/28/2022 Infusion Hematology and Oncology 08/11/2022 Infusion Hematology and Oncology 08/16/2022 Office Visit Audiology Mindy Moody AUD [facility] AUDIOLOGY DEPT [place], [place] [address] (Wo rk) 11/04/2022 Office Visit Rheumatology Dante Freedman PA [facility] RHEUMATOLOGY [place], [place] [address] (Wo rk) documented as of this encounter Visit Diagnoses Not on filedocumented in this encounter Care Teams Power Electronics Research Engineer Relationship Specialty Start Date End Date Violetta Sanford MD PCP - General 04/02/14 Constantino [address] [place], [place] [address] documented as of this encounter
--- OUTSIDE RECORDS SUMMARY | 2022-06-16 12:24 | XMS_ITS | Encounter Summary ---
:1955 Author Organization [facility] [place] [address] Care Team Providers Name Role Phone Violetta Sanford MD Primary Care Provider Reason for Visit Reason Comments Injections SQ Aranesp Treatment/Therapy Plan Authorization (Routine) - Authorized Specialty Diagnoses / Procedures Referred By Contact Refer red To Contact Hematology and Diagnoses CKD (chronic kidney disease) stage 4, GFR 15-29 ml/min Nicky Baez Elizabeth Oncology Procedures MD James NUR MD [address] HEMATOLOGY/ONCOLOGY [place], [place] DEPT. [address] [place] [address] Referral ID Status Reason Start Date Expiration Date Visits V isits Requested Authorized [id number] Authorized 10/08/2020 07/24/2023 99 99 Encounter Details Date Type Department Care Team Description 07/22/2021 Infusion Hematology Oncology at [facility] D (chronic kidney disease) [facility] stage 4, GFR 15-29 ml/min [address] [place] [phone] Social History Tobacco Use Types [...] MD [facility] Neurology [place], [place] [address] (Wo rk) 06/29/2022 Appointment Cardiology Violetta Sanford M D [address] [address] (Wo rk) 06/30/2022 Infusion Hematology and Oncology 07/14/2022 Infusion Hematology and Oncology 07/28/2022 Infusion Hematology and Oncology 08/11/2022 Infusion Hematology and Oncology 08/16/2022 Office Visit Audiology Mindy Moody AUD [facility] AUDIOLOGY [place], [place] 0[address] (Wo rk) 11/04/2022 Office Visit Rheumatology Dante Freedman PA [facility] RHEUMATOLOGY [place] [address] (Wo rk) documented [...] (CKD) documented in this encounter Care Teams Supervisor Boilermaking Shop Relationship Specialty Start Date End Date Violetta Sanford MD PCP - General 04/02/14 [address]ino [address] [place] [address] documented as of this encounter
--- OUTSIDE RECORDS SUMMARY | 2022-06-16 12:24 | XMS_ITS | Encounter Summary ---
:1955 Author Organization [facility] [place] [address] Care Team Providers Name Role Phone Violetta Sanford MD Primary Care Provider Reason for Visit Reason Onset Date Comments Labs Only 05/06/2021 Lab Tracking Encounter Details Date Type Department Care Team Description 05/06/2021 Telephone Hematology/Oncology at [facility], Labs Only (Lab Tracking) [facility] Angelica Gilbert RN [address] [place] [phone] Social History Tobacco Use Types Packs/Day [...] 2:42 PM EDT LAB TRACKING Brett Dailey [id number] 1955 DIAGNOSIS: anemia d/t CKD stage IV, h/o kidney transplant LABS: CBC every 3 weeks MEDICATIONS: Aranesp 300 mcg every 3 weeks if HGB <12 ASSESSMENT/PLAN: Lab sent to provider for review. Will continue every 3 week CBC and Aranesp. Will go to lab at [facility] 1 hr prior to infusion appts [...] and Oncology 06/21/2022 Office Visit Neurology Tyler Roajs MD [facility] Neurology [place], [place] [address] (Wo rk) 06/29/2022 Appointment Cardiology Violetta Sanford M D [address] [place] [address] (Wo rk) 06/30/2022 Infusion Hematology and Oncology 07/14/2022 Infusion Hematology and Oncology 07/28/2022 Infusion Hematology and Oncology 08/11/2022 Infusion Hematology and Oncology 08/16/2022 Office Visit Audiology Mindy Moody AUD [facility] AUDIOLOGY DEPT [place], [place] [address] (Wo rk) 11/04/2022 Office Visit Rheumatology Dante Freedman PA [facility] RHEUMATOLOGY [place], [place] [address] (Wo rk) documented as of [...] on filedocumented in this encounter Care Teams Exchange Architect Relationship Specialty Start Date End Date Violetta Sanford MD PCP - General 04/02/14 [address] [place] [address] documented as of this encounter
--- OUTSIDE RECORDS SUMMARY | 2022-06-16 12:24 | XMS_ITS | Encounter Summary ---
:1955 Author Organization [place] [address] Care Team Providers Name Role Phone Violetta Sanford MD Primary Care Provider Reason for Visit Reason Comments Injections Aranesp Treatment/Therapy Plan Authorization (Routine) - Authorized Specialty Diagnoses / Procedures Referred By Contact Refer red To Contact Hematology and Diagnoses CKD (chronic kidney disease) stage 4, GFR 15-29 ml/min Nicky Baez Elizabeth Oncology Procedures MD James NUR MD [address] HEMATOLOGY/ONCOLOGY [place], [place] DEPT. [id number] [place] [address] Referral ID Status Reason Start Date Expiration Date Visits V isits Requested Authorized [id number] Authorized 10/08/2020 07/24/2023 99 99 Encounter Details Date Type Department Care Team Description 03/25/2021 Infusion Hematology Oncology at [facility] D (chronic kidney disease) [facility] stage 4, GFR 15-29 ml/min [address] [place] [phone] Social History Tobacco Use Types [...] Rojas MD [facility] Neurology [place], [place] [phone] (Oscar escobedo) 06/29/2022 Appointment Cardiology Violetta Sanford M D [address] [place] [address] (Oscar escobedo) 06/30/2022 Infusion Hematology and Oncology 07/14/2022 Infusion Hematology and Oncology 07/28/2022 Infusion Hematology and Oncology 08/11/2022 Infusion Hematology and Oncology 08/16/2022 Office Visit Audiology Mindy Moody AUD [facility] AUDIOLOGY DEPT [place], [place] [address] (Wo rk) 11/04/2022 Office Visit Rheumatology Dante Freedman PA [facility] RHEUMATOLOGY [place], [place] [address] (Wo rk) documented as of [...] (CKD) documented in this encounter Care Teams Apparel Fashion Designer Relationship Specialty Start Date End Date Violetta Sanford MD PCP - General 04/02/14 [address] [place] [address] documented as of this encounter
--- OUTSIDE RECORDS SUMMARY | 2022-06-16 12:24 | XMS_ITS | Encounter Summary ---
:1955 Author Organization [facility] [place] [address] Care Team Providers Name Role Phone Violetta Sanford MD Primary Care Provider Reason for Visit Reason Onset Date Comments Medication Refill 05/21/2021 Encounter Details Date Type Department Care Team Description 05/21/2021 Refill Endocrinology at [facility] Niyah Pappas, [place] [address] Social History Tobacco Use Types Packs/Day Years [...] Rojas MD [facility] Neurology [place], [place] [address] 6[address] (Wo rk) 06/29/2022 Appointment Cardiology Violetta Sanford M D [address] [place], [place] [address] (Wo gregg) 06/30/2022 Infusion Hematology and Oncology 07/14/2022 Infusion Hematology and Oncology 07/28/2022 Infusion Hematology and Oncology 08/11/2022 Infusion Hematology and Oncology 08/16/2022 Office Visit Audiology Mindy Moody AUD [facility] AUDIOLOGY [place], [place] [address] (Wo rk) 11/04/2022 Office Visit Rheumatology Dante Freedman PA [facility] RHEUMATOLOGY [place], [place] [address] (Wo rk) documented as of this encounter Visit Diagnoses Not on filedocumented in this encounter Care Teams Gang Tailer Relationship Specialty Start Date End Date Violetta Sanford MD PCP - General 04/02/14 [address] [facility] 1 [place] [address] documented as of this encounter
--- OUTSIDE RECORDS SUMMARY | 2022-06-16 12:24 | XMS_ITS | Encounter Summary ---
:1955 Author Organization [facility] [place] [address] Care Team Providers Name Role Phone Violetta Sanford MD Primary Care Provider Reason for Visit Reason Comments Injections Aranesp Treatment/Therapy Plan Authorization (Routine) - Authorized Specialty Diagnoses / Procedures Referred By Contact Refer red To Contact Hematology and Diagnoses CKD (chronic kidney disease) stage 4, GFR 15-29 ml/min Nicky Baez Elizabeth Oncology Procedures ALFREDA Ramirez MD MMD [address] HEMATOLOGY/ONCOLOGY [place], [place] DEPT. [id number] [place] [address] Referral ID Status Reason Start Date Expiration Date Visits V isits Requested Authorized [id number] Authorized 10/08/2020 07/24/2023 99 99 Encounter Details Date Type Department Care Team Description 05/27/2021 Infusion Hematology Oncology at [facility] (chronic kidney disease) [facility] stage 4, GFR 15-29 ml/min [address] [place] [phone] Social History Tobacco Use Types [...] drug name, route, and dosage by Jumana Saab RN and pharmacist on-site. REACTIONS (DESCRIPTION, TIME, [...] Tyler Rojas MD [facility] Neurology [place], [place] [phone] (Wo rk) 06/29/2022 Appointment Cardiology Violetta Sanford M D [address] [place] [address] (Wo rk) 06/30/2022 Infusion Hematology and Oncology 07/14/2022 Infusion Hematology and Oncology 07/28/2022 Infusion Hematology and Oncology 08/11/2022 Infusion Hematology and Oncology 08/16/2022 Office Visit Audiology Mindy Moody AUD [facility] AUDIOLOGY DEPT [place], [place] [address] (Wo rk) 11/04/2022 Office Visit Rheumatology Dante Freedman PA [facility] RHEUMATOLOGY [place], [place] [address] (Oscar escobedo) documented as of [...] (CKD) documented in this encounter Care Teams South Asian History Professor Relationship Specialty Start Date End Date Violetta Sanford MD PCP - General 04/02/14 [address] [place] [address] documented as of this encounter
--- OUTSIDE RECORDS SUMMARY | 2022-06-16 12:24 | XMS_ITS | Encounter Summary ---
:1955 Author Organization [facility] [place] [address] Care Team Providers Name Role Phone Violetta Sanford MD Primary Care Provider Reason for Visit Reason Onset Date Comments Pump/sensor 04/02/2021 Encounter Details Date Type Department Care Team Description 04/02/2021 Telephone Endocrinology at [facility] Leny Kohler Pump/[place] [address] Social History Tobacco Use Types Packs/Day [...] 7:37 AM EDT Documentation request received from N. 10/28/20 & 03/06/21 office notes routed Confirmed 04/02 documented in this encounter Plan of Treatment Upcoming Encounters Date Type Specialty Care Team Description 06/16/2022 Infusion Hematology and Oncology 06/21/2022 Office Visit Neurology Tyler Rojas MD [facility] er Neurology [place], [place] [phone] (Wo rk) 06/29/2022 Appointment Cardiology Vioeltta Sanford M D [address] [place], [place] [phone] (Wo rk) 06/30/2022 Infusion Hematology and Oncology 07/14/2022 Infusion Hematology and Oncology 07/28/2022 Infusion Hematology and Oncology 08/11/2022 Infusion Hematology and Oncology 08/16/2022 Office Visit Audiology Mindy Moody AUD [facility] AUDIOLOGY [place], [place] 0375 (Wo rk) 11/04/2022 Office Visit Rheumatology Dante Freedman, DA [facility] RHEUMATOLOGY [place], [place] 0375 ( rk) documented as of this encounter Visit Diagnoses Not on filedocumented in this encounter Care Teams Inclinometer Tester Relationship Specialty Start Date End Date Violetta Sanford MD PCP - General 04/02/14 [address] [place], [place] [address] documented as of this encounter
--- OUTSIDE RECORDS SUMMARY | 2022-06-16 12:24 | XMS_ITS | Encounter Summary ---
:1955 Author Organization [facility] [place] [address] Care Team Providers Name Role Phone Violetta Sanford MD Primary Care Provider Encounter Details Date Type Department Care Team Description 05/25/2021 Telephone Endocrinology at [facility] [place] [address] Social History Tobacco Use Types Packs/Day Years [...] her and the patient on where the [employer] paperwork stands on our end. documented in this encounter Plan of Treatment Upcoming Encounters Date Type Specialty Care Team Description 06/16/2022 Infusion Hematology and Oncology 06/21/2022 Office Visit Neurology Tyler Rojas MD [facility] Dr Farah [place], [place] [phone] (Wo rk) 06/29/2022 Appointment Cardiology Violetta Sanford M D [address] [place], [place] [phone] (Wo rk) 06/30/2022 Infusion Hematology and Oncology 07/14/2022 Infusion Hematology and Oncology 07/28/2022 Infusion Hematology and Oncology 08/11/2022 Infusion Hematology and Oncology 08/16/2022 Office Visit Audiology Mindy Moody AUD [facility] AUDIOLOGY [place], [place] 0375 (Wo rk) 11/04/2022 Office Visit Rheumatology Dante Freedman, DA [facility] RHEUMATOLOGY [place], [place] 0375 (Wo rk) documented as of this encounter Visit Diagnoses Not on filedocumented in this encounter Care Teams Laborer Bituminous Paving Relationship Specialty Start Date End Date Violetta Sanford MD PCP - General 04/02/14 [address] [place], [place] [address] documented as of this encounter
--- OUTSIDE RECORDS SUMMARY | 2022-06-16 12:24 | XMS_ITS | Encounter Summary ---
:1955 Author Organization [place] [address] Care Team Providers Name Role Phone Violetta Sanford MD Primary Care Provider Reason for Visit Reason Onset Date Comments Follow-up 05/25/2021 Encounter Details Date Type Department Care Team Description 05/25/2021 Telephone Rheumatology at [facility] [place] [address] Social History Tobacco Use Types Packs/Day Years [...] Rojas MD [facility] Dr Farah [place], [place] [phone] (Wo rk) 06/29/2022 Appointment Cardiology Violetta Sanford M D [address] [place], [place] [phone] (Wo rk) 06/30/2022 Infusion Hematology and Oncology 07/14/2022 Infusion Hematology and Oncology 07/28/2022 Infusion Hematology and Oncology 08/11/2022 Infusion Hematology and Oncology 08/16/2022 Office Visit Audiology Mindy Moody, WENDI [facility] AUDIOLOGY [place], [place] 0375 (Wo rk) 11/04/2022 Office Visit Rheumatology Dante Freedman, PA [facility] RHEUMATOLOGY [place], [place] 0375 (Wo rk) documented as of this encounter Visit Diagnoses Not on filedocumented in this encounter Care Teams National Service Officer Relationship Specialty Start Date End Date Violetta Sanford MD PCP - General 04/02/14 [address] [place] [address] documented as of this encounter
--- OUTSIDE RECORDS SUMMARY | 2022-06-16 12:24 | XMS_ITS | Encounter Summary ---
:1955 Author Organization [facility] [place] [address] Care Team Providers Name Role Phone Violetta Sanford MD Primary Care Provider Reason for Visit Reason Onset Date Comments Labs Only 07/22/2021 Lab Tracking Encounter Details Date Type Department Care Team Description 07/22/2021 Telephone Hematology/Oncology at [facility], Labs Only (Lab Tracking) [facility] Angelica Gilbert RN [address] [place] [phone] Social History Tobacco Use Types Packs/Day [...] 1:29 PM EST LAB TRACKING Brett Dailey [id number] 1955 DIAGNOSIS: anemia d/t CKD stage IV, [...] Rojas MD [facility] Neurology [place], [place] [phone] (Wo rk) 06/29/2022 Appointment Cardiology Violetta Sanford M D [address] [place] [address] (Wo rk) 06/30/2022 Infusion Hematology and Oncology 07/14/2022 Infusion Hematology and Oncology 07/28/2022 Infusion Hematology and Oncology 08/11/2022 Infusion Hematology and Oncology 08/16/2022 Office Visit Audiology Mindy Moody AUD [facility] AUDIOLOGY DEPT [place], [place] 0375 (Wo rk) 11/04/2022 Office Visit Rheumatology Dante Freedman PA [facility] RHEUMATOLOGY [place], [place] 0375 (Wo rk) documented as [...] on filedocumented in this encounter Care Teams Rum Processing Operator Relationship Specialty Start Date End Date Violetta Sanford MD PCP - General 04/02/14 [address] [place] [address] documented as of this encounter
--- OUTSIDE RECORDS SUMMARY | 2022-06-16 12:24 | XMS_ITS | Encounter Summary ---
:1955 Author Organization [facility] [place] [address] Care Team Providers Name Role Phone Violetta Sanford MD Primary Care Provider Reason for Visit Reason Comments Injections Aranesp SC Treatment/Therapy Plan Authorization (Routine) - Authorized Specialty Diagnoses / Procedures Referred By Contact Refer red To Contact Hematology and Diagnoses CKD (chronic kidney disease) stage 4, GFR 15-29 ml/min Nicky Baez Elizabeth Oncology Procedures MD James NUR MD [address] HEMATOLOGY/ONCOLOGY [place], [place] DEPT. [address] [place] [address] Referral ID Status Reason Start Date Expiration Date Visits V isits Requested Authorized [id number] Authorized 10/08/2020 07/24/2023 99 99 Encounter Details Date Type Department Care Team Description 09/02/2021 Infusion Hematology Oncology at [facility] D (chronic kidney disease) [facility] stage 4, GFR 15-29 ml/min [address] [place] [phone] Social History Tobacco Use Types [...] Tyler Rojas MD [facility] Neurology [place], [place] [phone] (Wo rk) 06/29/2022 Appointment Cardiology Violetta Sanford M D [address] [address] (Wo rk) 06/30/2022 Infusion Hematology and Oncology 07/14/2022 Infusion Hematology and Oncology 07/28/2022 Infusion Hematology and Oncology 08/11/2022 Infusion Hematology and Oncology 08/16/2022 Office Visit Audiology Mindy Moody AUD [facility] AUDIOLOGY [place], [place] 0[address] (Wo rk) 11/04/2022 Office Visit Rheumatology Dante Freedman PA [facility] RHEUMATOLOGY [place] 0[address] (Wo rk) documented as of this [...] (CKD) documented in this encounter Care Teams Food And Beverage Service Manager Relationship Specialty Start Date End Date Violetta Sanford MD PCP - General 04/02/14 [address] [place] [address] documented as of this encounter
--- OUTSIDE RECORDS SUMMARY | 2022-06-16 12:24 | XMS_ITS | Encounter Summary ---
:1955 Author Organization [facility] [place] [address] Care Team Providers Name Role Phone Violetta Sanford MD Primary Care Provider Encounter Details Date Type Department Care Team Description 08/20/2021 Telephone Solid Organ Transplant at [facility]arrison APRN [facility] Giovana [place] [address] [place] [address] [phone] (Wo rk) Social History Tobacco Use Types [...] Neurology Tyler Rojas MD [facility] Dr Farah [place], [place] [address] (Wo rk) 06/29/2022 Appointment Cardiology Violetta Sanford M D [address] [place], [place] [phone] ( rk) 06/30/2022 Infusion Hematology and Oncology 07/14/2022 Infusion Hematology and Oncology 07/28/2022 Infusion Hematology and Oncology 08/11/2022 Infusion Hematology and Oncology 08/16/2022 Office Visit Audiology Mindy Moody AUD [facility] AUDIOLOGY [place], [place] 0[address] ( rk) 11/04/2022 Office Visit Rheumatology Dante Freedman, DA [facility] RHEUMATOLOGY [place], [place] 0[address] ([facility]) documented as of this encounter Visit Diagnoses Not on filedocumented in this encounter Care Teams Head Of Quality Relationship Specialty Start Date End Date Violetta Sanford MD PCP - General 04/02/14 [address] [place], [place] [address] documented as of this encounter
--- OUTSIDE RECORDS SUMMARY | 2022-06-16 12:24 | XMS_ITS | Encounter Summary ---
:1955 Author Organization [facility] [place] [address] Care Team Providers Name Role Phone Violetta Sanford MD Primary Care Provider Reason for Visit Reason Comments Injections Aranesp Treatment/Therapy Plan Authorization (Routine) - Authorized Specialty Diagnoses / Procedures Referred By Contact Refer red To Contact Hematology and Diagnoses CKD (chronic kidney disease) stage 4, GFR 15-29 ml/min Nicky Baez Elizabeth Oncology Procedures MD James NUR MD [address] HEMATOLOGY/ONCOLOGY [place], [place] DEPT. [id number] [place] [address] Referral ID Status Reason Start Date Expiration Date Visits V isits Requested Authorized [id number] Authorized 10/08/2020 07/24/2023 99 99 Encounter Details Date Type Department Care Team Description 06/24/2021 Infusion Hematology Oncology at [facility] D (chronic kidney disease) [facility] stage 4, GFR 15-29 ml/min [address] [place] [phone] Social History Tobacco Use Types [...] Tyler Rojas MD [facility] Neurology [place], [place] [phone] (Oscar escobedo) 06/29/2022 Appointment Cardiology Violetta Sanford M D [address] [place] [address] (Oscar escobedo) 06/30/2022 Infusion Hematology and Oncology 07/14/2022 Infusion Hematology and Oncology 07/28/2022 Infusion Hematology and Oncology 08/11/2022 Infusion Hematology and Oncology 08/16/2022 Office Visit Audiology Mindy Moody, WENDI [facility] AUDIOLOGY DEPT [place], [place] 0[address] (Wo rk) 11/04/2022 Office Visit Rheumatology Dante Freedman PA [facility] RHEUMATOLOGY [place], [place] 0375 (Wo rk) documented as of [...] (CKD) documented in this encounter Care Teams Dye Weigher Relationship Specialty Start Date End Date Violetta Sanford MD PCP - General 04/02/14 [address] [place] [address] documented as of this encounter
--- OUTSIDE RECORDS SUMMARY | 2022-06-16 12:24 | XMS_ITS | Encounter Summary ---
:1955 Author Organization [facility] [place] [address] Care Team Providers Name Role Phone Violetta Sanford MD Primary Care Provider Reason for Visit Reason Comments Injections Aranesp Treatment/Therapy Plan Authorization (Routine) - Authorized Specialty Diagnoses / Procedures Referred By Contact Refer red To Contact Hematology and Diagnoses CKD (chronic kidney disease) stage 4, GFR 15-29 ml/min Nicky aBez Elizabeth Oncology Procedures MD James NUR MD [address] HEMATOLOGY/ONCOLOGY [place], [place] DEPT. [address] [place] [address] Referral ID Status Reason Start Date Expiration Date Visits V isits Requested Authorized [id number] Authorized 10/08/2020 07/24/2023 99 99 Encounter Details Date Type Department Care Team Description 08/05/2021 Infusion Hematology Oncology at [facility] D (chronic kidney disease) [facility] stage 4, GFR 15-29 ml/min [address] [place] [phone] Social History Tobacco Use Types [...] Treatment: Aranesp Injection Labs: Done monthly at [facility], 07/22/21 - H/H - 9.0/30.3 Aranesp 300 mcg injected in right arm. Patient aware to call clinic with any questions or concerns. Plan: Return to clinic as scheduled. documented in this encounter Plan of Treatment Upcoming Encounters Date Type Specialty Care Team Description 06/16/2022 Infusion Hematology and Oncology 06/21/2022 Office Visit Neurology Tyler Rojsa MD [facility] Neurology [place], [place] [phone] (Wo rk) 06/29/2022 Appointment Cardiology Violetta Sanford M D [address] [address] (Wo rk) 06/30/2022 Infusion Hematology and Oncology 07/14/2022 Infusion Hematology and Oncology 07/28/2022 Infusion Hematology and Oncology 08/11/2022 Infusion Hematology and Oncology 08/16/2022 Office Visit Audiology Mindy Moody AUD [facility] AUDIOLOGY [place], [place] 0[address] (Wo rk) 11/04/2022 Office Visit Rheumatology Dante Freedman PA [facility] RHEUMATOLOGY [place] [address] (Wo rk) [...] (CKD) documented in this encounter Care Teams Ironing Pleater Relationship Specialty Start Date End Date Violetta Sanford MD PCP - General 04/02/14 [address] [place] [address] documented as of this encounter
--- OUTSIDE RECORDS SUMMARY | 2022-06-16 12:24 | XMS_ITS | Encounter Summary ---
:1955 Author Organization [place] [address] Care Team Providers Name Role Phone Violetta Sanford MD Primary Care Provider Reason for Visit Reason Comments Injections Aranesp Treatment/Therapy Plan Authorization (Routine) - Authorized Specialty Diagnoses / Procedures Referred By Contact Refer red To Contact Hematology and Diagnoses CKD (chronic kidney disease) stage 4, GFR 15-29 ml/min Nicky Baez Elizabeth Oncology Procedures MD James NUR MD [address] HEMATOLOGY/ONCOLOGY [place], [place] DEPT. [id number] [place] [address] Referral ID Status Reason Start Date Expiration Date Visits V isits Requested Authorized [id number] Authorized 10/08/2020 07/24/2023 99 99 Encounter Details Date Type Department Care Team Description 06/09/2021 Infusion Hematology Oncology at [facility] (chronic kidney disease) [facility] stage 4, GFR 15-29 ml/min [address] [place] [phone] Social History Tobacco Use Types [...] Tyler Rojas MD [facility] Neurology [place], [place] [phone] (Oscar escobedo) 06/29/2022 Appointment Cardiology Violetta Sanford M D [address] [place] [address] (Oscar escobedo) 06/30/2022 Infusion Hematology and Oncology 07/14/2022 Infusion Hematology and Oncology 07/28/2022 Infusion Hematology and Oncology 08/11/2022 Infusion Hematology and Oncology 08/16/2022 Office Visit Audiology Mindy Moody WENDI [facility] AUDIOLOGY DEPT [place], [place] 0[address] (Wo rk) 11/04/2022 Office Visit Rheumatology Dante Freedman, DA [facility] RHEUMATOLOGY [place], [place] 0375 (Wo rk) documented as of [...] (CKD) documented in this encounter Care Teams Student Dean Relationship Specialty Start Date End Date Violetta Sanford MD PCP - General 04/02/14 [address] [place] [address] documented as of this encounter
--- OUTSIDE RECORDS SUMMARY | 2022-06-16 12:24 | XMS_ITS | Encounter Summary ---
:1955 Author Organization [facility] [place] [address] Care Team Providers Name Role Phone Violetta Sanford MD Primary Care Provider Reason for Referral Consultation (Routine) - Closed Specialty Diagnoses / Procedures Referred By Contact Refer red To Contact Diagnoses H/O kidney transplant [facility] current use of immunosuppressive drug Alejo Garnett MD [facility] D [place] [address] Referral ID Status Reason Start Date Expiration Date Visits Requ ested Visits Authorized [id number] Closed Other 03/13/2021 09/09/2021 1 1 Encounter Details Date Type Department Care Team Description 03/13/2021 Office Visit Solid Organ Mariola, H/O kidney tilley splant; Transplant at [facility] Alejo Desir MD [facility] current use of immunosuppressi ve drug; [facility] CKD (talent consultant ivon kidney disease) stage 4, GFR 15-29 ml/min; [facility] DR Mona ruiz; [place], [place] TRANSPLANT Aftercare follo wing organ transplant [id number] SURGERY [phone] [place] [address] Social History Tobacco Use Types Packs/Day Years [...] Leroy Dailey Transplant Date: 02/29/2008 Organ(s) Kidney [place] organ diagnosis: Diabetes Mellitus - Type [...] new allergies. ?? He was admitted to [facility] in October 2018 for fluid overload and [...] BELOW-KNEE performed by HENNA GAMINO JR at [facility] MAIN OR ??? PRO LAP, APPENDECTOMY ?? 06/16/2013 ?? LAPAROSCOPIC APPENDECTOMY performed by Angel Mccann MD at [facility] MAIN OR ??? US RENAL TRANSPLANT LEFT Left 06/26/2019 ?? US Renal Transplant Left 06/26/2019 [facility] RAD ULTRASOUND ?? Healthcare maintenance for a [...] done 03/21/2015 which was normal. Due again!! [place] kidney ultrasound looking for renal cell [...] 14 Day Sensor Kit, 1 each by [facility] [...] Blood-Glucose Sensor (Dexcom G6 Sensor) Device, by [facility].(Non-Drug; Combo Route) route. Sensor, industrial safety and health specialist andtransmitter, Disp: , Rfl: ??? calciTRIoL (Rocaltrol) [...] 3 ??? fluticasone propionate (FLONASE) 50 mcg/actuation [place], Suspension, INSTILL 2 SPRAYS INTO EACH NOSTRIL ONCE A DAY NEEDED, Disp: , Rfl: ??? triamcinolone (NASACORT or NASACORT OTC) 55 mcg Aerosol, [place], 2 sprays by Nasal route daily., Disp: [...] x 1/2 Needle, 1 Device by [facility].(Non- Drug; Combo Route) route 3 times daily., [...] Rfl: 1 ??? Miscellaneous Medical Supply [facility], 4 Devices by [facility] [...] from 03/13/2021 in Solid Organ Transplant at [facility] Weight 123.4 kg (272 lb) [without prothetics] [...] UA Latest Ref Range: Clear Clear Spec [place] UA Latest Ref Range: 1.005 - 1.030 [...] 30 min in direct face to face certified rehabilitation counselor. documented in this encounter Plan of Treatment Upcoming Encounters Date Type Specialty Care Team Description 06/16/2022 Infusion Hematology and Oncology 06/21/2022 Office Visit Neurology Tyler Rojas MD [facility] Neurology [place], [place] [phone] (Wo rk) 06/29/2022 Appointment Cardiology Violetta Sanford M D [address] [place], [place] [address] (Wo rk) 06/30/2022 Infusion Hematology and Oncology 07/14/2022 Infusion Hematology and Oncology 07/28/2022 Infusion Hematology and Oncology 08/11/2022 Infusion Hematology and Oncology 08/16/2022 Office Visit Audiology Mindy Moody, WENDI [facility] AUDIOLOGY [place], [place] 0[address] (Wo rk) 11/04/2022 Office Visit Rheumatology Dante Freedman, PA [facility] RHEUMATOLOGY [place], [place] 8[address] (Wo rk) Scheduled Referrals Name Type Priority Associated Diagnoses Order S chedule Amb Referral to Outpatient Routine H/O kidney trans plant Ordered: COVID Vaccination Referral [facility] current use o f 03/13/2021 Clinic (COVID) immunosuppressive drug documented as of this encounter Visit Diagnoses Diagnosis H/O kidney transplant Kidney replaced by transplant [facility] current use of immunosuppressi ve drug CKD (chronic kidney disease) stage 4, GF R 15-29 ml/min Chronic kidney disease, Stage IV (severe ) Prophylactic immunotherapy Need for prophylactic immunotherapy Aftercare following organ transplant documented in this encounter Care Teams Lining Finisher Relationship Specialty Start Date End Date Violetta Sanford MD PCP - General 04/02/14 [address] [place], [place] [address] documented as of this encounter
--- OUTSIDE RECORDS SUMMARY | 2022-06-16 12:24 | XMS_ITS | Encounter Summary ---
:1955 Author Organization [facility] Address [facility] [place] [address] Care Team Providers Name Role Phone Violetta Sanford MD Primary Care Provider Reason for Visit Reason Comments Medication Refill Encounter Details Date Type Department Care Team Description 09/13/2021 Refill Solid Organ Transplant Alejo Garnett Transplanted kidney; [place] [facility] MD Thang Other complication of kidney transplant; [facility] Pro [place]actic [place] [address] TRANSPLANT SURGERY [phone] [place], [place] [address] (Oscar escobedo) Social History Tobacco [...] Tyler Rojas MD [facility] Dr [place]i [place], [place] [phone] (Wo rk) 06/29/2022 Appointment Cardiology Violetta Sanford M D [address] [place], [place] [phone] (Oscar rk) 06/30/2022 Infusion Hematology and Oncology 07/14/2022 Infusion Hematology and Oncology 07/28/2022 Infusion Hematology and Oncology 08/11/2022 Infusion Hematology and Oncology 08/16/2022 Office Visit Audiology Mindy Moody, WENDI [facility] AUDIOLOGY [place], [place] 0375 (Wo rk) 11/04/2022 Office Visit Rheumatology Dante Freedman, PA [facility] RHEUMATOLOGY [place], [place] 0[address] (Wo rk) documented as of this encounter Visit Diagnoses Diagnosis Transplanted kidney Kidney replaced by transplant Other complication of kidney transplant Prophylactic immunotherapy Need for prophylactic immunotherapy documented in this encounter Care Teams Cloth Cutting Machine Operator Relationship Specialty Start Date End Date Violetta Sanford MD PCP - General 04/02/14 [facility] ALONDRA [facility] 1 [place] [address] documented as of this encounter
--- OUTSIDE RECORDS SUMMARY | 2022-06-16 12:24 | XMS_ITS | Encounter Summary ---
:1955 Author Organization [place] [address] Care Team Providers Name Role Phone Violetta Sanford MD Primary Care Provider Reason for Visit Reason Comments Injections Aranesp Anemia Treatment/Therapy Plan Authorization (Routine) - Authorized Specialty Diagnoses / Procedures Referred By Contact Refer red To Contact Hematology and Diagnoses CKD (chronic kidney disease) stage 4, GFR 15-29 ml/min Nicky Baez Elizabeth Oncology Procedures MD James NUR MD [address] HEMATOLOGY/ONCOLOGY [place], [place] DEPT. [address] [place] [address] Referral ID Status Reason Start Date Expiration Date Visits V isits Requested Authorized [id number] Authorized 10/08/2020 07/24/2023 99 99 Encounter Details Date Type Department Care Team Description 04/15/2021 Infusion Hematology Oncology at [facility] D (chronic kidney disease) [facility] stage 4, GFR 15-29 ml/min [address] [place] [address] [phone] [...] left arm which is causing mild discomfort (210). He otherwise offers no complaints. OBJECTIVE LAB DATA: 04/15 labs - Hgb 8.3 Pre administration: Orders independently verified for drug name, route, and dosage by Sumeet Burnette RN and pharmacist on-site. REACTIONS (DESCRIPTION, TIME, INTERVENTION AND EFFECTIVENESS) none ASSESSMENT Mr. Torres was awake, alert and he tolerated treatment well. PLAN Return to clinic in 3 weeks for appt with Dr. Baez and possible Andrea. Patient was reminded tocall in the interim with any questions/concerns. documented in this encounter Plan of Treatment Upcoming Encounters Date Type Specialty Care Team Description 06/16/2022 Infusion Hematology and Oncology 06/21/2022 Office Visit Neurology Tyler Rojas MD [facility] Neurology [place], [place] [phone] (Oscar escobedo) 06/29/2022 Appointment Cardiology Violetta Sanford M D [address] [place] [address] (Oscar escobedo) 06/30/2022 Infusion Hematology and Oncology 07/14/2022 Infusion Hematology and Oncology 07/28/2022 Infusion Hematology and Oncology 08/11/2022 Infusion Hematology and Oncology 08/16/2022 Office Visit Audiology Mindy Modoy AUD [facility] AUDIOLOGY [place], [place] [address] (Wo rk) 11/04/2022 Office Visit Rheumatology Dante Freedman, PA [facility] RHEUMATOLOGY [place], [place] [address] (Wo rk) documented as of [...] (CKD) documented in this encounter Care Teams Slurry Control Operator Helper Relationship Specialty Start Date End Date Violetta Sanford MD PCP - General 04/02/14 [address] [place] [address] documented as of this encounter
--- OUTSIDE RECORDS SUMMARY | 2022-06-16 12:24 | XMS_ITS | Encounter Summary ---
:1955 Author Organization [facility] [place] [address] Care Team Providers Name Role Phone Violetta Sanford MD Primary Care Provider Encounter Details Date Type Department Care Team Description 09/16/2021 [facility] [place] [address] [place] [phone] Social History Tobacco Use Types [...] 1:38 PM EST LAB TRACKING Leroy Torres [id number] 1955 ?? DIAGNOSIS: Anemia d/t CKD stage [...] Rojas MD [facility] Neurology [place], [place] [phone] (Wo rk) 06/29/2022 Appointment Cardiology Violetta Sanford M D [address] [place] [address] (Wo rk) 06/30/2022 Infusion Hematology and Oncology 07/14/2022 Infusion Hematology and Oncology 07/28/2022 Infusion Hematology and Oncology 08/11/2022 Infusion Hematology and Oncology 08/16/2022 Office Visit Audiology Mindy Moody AUD [facility] AUDIOLOGY DEPT [place], [place] [address] (Wo rk) 11/04/2022 Office Visit Rheumatology Dante Freedman PA [facility] RHEUMATOLOGY [place], [place] [address] (Wo rk) documented as of [...] Laterality Volume Blood 09/16/2021 Historical Provider MD HEMATOLOGY ORDERABLES documented in this encounter Visit Diagnoses Not on filedocumented in this encounter Care Teams Continuity Writer Relationship Specialty Start Date End Date Violetta Sanford MD PCP - General 04/02/14 [address] [place] [address] documented as of this encounter
--- OUTSIDE RECORDS SUMMARY | 2022-06-16 12:24 | XMS_ITS | Encounter Summary ---
:1955 Author Organization [facility] [place] [address] Care Team Providers Name Role Phone Violetta Sanford MD Primary Care Provider Reason for Visit Reason Comments Follow-up Encounter Details Date Type Department Care Team Description 05/05/2021 Office Visit Rheumatology at [facility] Dante Freedman Osteoarthritis of multiple j oints, unspecified osteoarthritis type (Primary Dx); [facility] DA Gilbert Immunosuppression; [facility] [place] [address] CENTER [phone] [place] [address] Social History Tobacco Use Types Packs/Day Years [...] Patient Instructions Patient InstructionsSDante rasmussen PA - 05/05/2021 3:30 PM EDT Follow [...] as needed for Congestion. ??? Blood-Glucose Sensor ([employer] G6 Sensor) Device by [facility].(Non-Drug; Combo Route) route. Sensor, naval gunfire liaison officer andtransmitter ??? metoprolol succinate XL (Toprol-XL) 50 mg Tablet Sustained Release 24 hr Take 1 tablet by mouth daily. 90 tablet 1 ??? amLODIPine (Norvasc) 10 mg Tablet Take 0.5 tablets by mouth daily. 90 tablet 3 ??? fluticasone propionate (FLONASE) 50 mcg/actuation [place], Suspension INSTILL 2 SPRAYS INTO EACH NOSTRIL ONCE A DAY NEEDED ??? triamcinolone (NASACORT or NASACORT OTC) 55 mcg Aerosol, [place] 2 sprays by Nasal route daily. 1 [...] lungs daily. 1 ??? Miscellaneous Medical Supply [facility] [...] COPD (chronic obstructive pulmonary disease) J44.9 ??? rn long term care current use of immunosuppressive drug Z79.899 ??? [...] BELOW-KNEE performed by HENNA GAMINO JR at [facility] MAIN OR ??? PRO LAP, APPENDECTOMY 06/16/2013 LAPAROSCOPIC APPENDECTOMY performed by Angel Mccann MD at [facility] MAIN OR ??? US RENAL TRANSPLANT LEFT Left 06/26/2019 US Renal Transplant Left 06/26/2019 [facility] RAD ULTRASOUND Physical Examination: BP 123/45 Pulse [...] has failed conservative measures namely topical preparations [id number] and paraffin. Patient reports no good success [...] Rojas MD [facility] Neurology [place], [place] [phone] (Wo rk) 06/29/2022 Appointment Cardiology Violetta Sanford M D [address] [place], [place] [address] (Wo rk) 06/30/2022 Infusion Hematology and Oncology 07/14/2022 Infusion Hematology and Oncology 07/28/2022 Infusion Hematology and Oncology 08/11/2022 Infusion Hematology and Oncology 08/16/2022 Office Visit Audiology Mindy Moody AUD [facility] AUDIOLOGY [place], [place] [address] (Wo rk) 11/04/2022 Office Visit Rheumatology Dante Freedman PA [facility] RHEUMATOLOGY [place], [place] [address] (Wo rk) documented as of this encounter Visit Diagnoses Diagnosis Osteoarthritis of multiple joints, unspe cified osteoarthritis type - Primary Immunosuppression Unspecified disorder of immune mechanism H/O kidney transplant Kidney replaced by transplant documented in this encounter Care Teams Trenching Machine Operator Relationship Specialty Start Date End Date Violetta Sanford MD PCP - General 04/02/14 [address] [place], [place] [id number] documented as of this encounter
--- OUTSIDE RECORDS SUMMARY | 2022-06-16 12:24 | XMS_ITS | Encounter Summary ---
:1955 Author Organization [facility] [place] [address] Care Team Providers Name Role Phone Violetta Sanford MD Primary Care Provider Reason for Visit Reason Onset Date Comments Labs Only 04/15/2021 Lab Tracking Encounter Details Date Type Department Care Team Description 04/15/2021 Telephone Hematology/Oncology at [facility], Labs Only (Lab Tracking) [facility] Angelica Gilbert RN [address] [place] [phone] Social History Tobacco Use Types Packs/Day [...] 1:16 PM EDT LAB TRACKING Brett Dailey [id number] 1955 DIAGNOSIS: anemia d/t CKD stage IV, h/o kidney transplant LABS: CBC every 3 weeks MEDICATIONS: Aranesp 300 mcg every 3 weeks if HGB <12 ASSESSMENT/PLAN: Lab sent to provider for review. Will continue every 3 week CBC and Aranesp. Will go to lab at [facility] 1 hr prior to [...] Neurology Tyler Rojas MD [facility] Neurology [place], [place] [phone] (Wo rk) 06/29/2022 Appointment Cardiology Violetta Sanford M D [facility] [address] [place] [address] (Wo rk) 06/30/2022 Infusion Hematology and Oncology 07/14/2022 Infusion Hematology and Oncology 07/28/2022 Infusion Hematology and Oncology 08/11/2022 Infusion Hematology and Oncology 08/16/2022 Office Visit Audiology Mindy Moody AUD [facility] AUDIOLOGY DEPT [place], [place] [address] (Wo rk) 11/04/2022 Office Visit Rheumatology Dante Feredman PA [facility] RHEUMATOLOGY [place], [place] [address] (Wo rk) documented as of this encounter Procedures Procedure Name Priority Date/Time Associated Diagnosis Comme nts CBC (WITH DIFF) Routine 04/15/2021 Results for this procedure are in the resu lts section. documented in this encounter Results CBC (with Diff) (04/15/2021) P athologist Signature WBC 9.16 Hemoglobin 8.3 Hematocrit 27.1 MCV 97.5 Platelets 183 Neutr Abs (ANC) 5.91 Specimen (Source) Anatomical Location Collection Method / Collectio n Time Received Time / Laterality Volume Blood Historical Provider MD HEMATOLOGY ORDERABLES documented in this encounter Visit Diagnoses Not on filedocumented in this encounter Care Teams [facility] Relationship Specialty Start Date End Date Violetta Sanford MD PCP - General 04/02/14 [address] [place] [address] documented as of this encounter
--- OUTSIDE RECORDS SUMMARY | 2022-06-16 12:24 | XMS_ITS | Encounter Summary ---
:1955 Author Organization [facility] [place] [address] Care Team Providers Name Role Phone Violetta Sanford MD Primary Care Provider Reason for Visit Reason Onset Date Comments Labs Only 08/19/2021 Lab Tracking Encounter Details Date Type Department Care Team Description 08/19/2021 Telephone Hematology/Oncology at [facility], Labs Only (Lab Tracking) [facility] Angelica Gilbert RN [address] [place] [phone] Social History Tobacco Use Types Packs/Day [...] 4:15 PM EST LAB TRACKING Brett Dailey [id number] 1955 DIAGNOSIS: anemia d/t CKD stage IV, h/o kidney transplant LABS: CBC every 4 weeks as of 05/27/21 MEDICATIONS: Aranesp 300 mcg every 2 weeks if HGB <12 as of 05/27/21 ASSESSMENT/PLAN: Reviewed labs with Dr Baez. Will get aranesp today. Labs again in 1 month, nextdue , but continue Aranesp every 2 weeks. Called and spoke with Taj Bowling, RN in transplantto let them know critical [...] Rojas MD [facility] Neurology [place], [place] [phone] ( gregg) 06/29/2022 Appointment Cardiology Violetta Sanford M D [facility] [address] [place] [address] ( gregg) 06/30/2022 Infusion Hematology and Oncology 07/14/2022 Infusion Hematology and Oncology 07/28/2022 Infusion Hematology and Oncology 08/11/2022 Infusion Hematology and Oncology 08/16/2022 Office Visit Audiology Mindy Moody AUD [facility] AUDIOLOGY DEPT [place], [place] [address] (Oscar escobedo) 11/04/2022 Office Visit Rheumatology Dante Freedman PA [facility] RHEUMATOLOGY [place], [place] [address] (Wo rk) documented as of [...] on filedocumented in this encounter Care Teams Welder Shielded Metal Arc Relationship Specialty Start Date End Date Violetta Sanford MD PCP - General 04/02/14 [address] [place] [address] documented as of this encounter
--- OUTSIDE RECORDS SUMMARY | 2022-06-16 12:24 | XMS_ITS | Encounter Summary ---
:1955 Author Organization [facility] [address] Care Team Providers Name Role Phone Violetta Sanford MD Primary Care Provider Reason for Visit Reason Onset Date Comments Medication Refill 08/04/2021 Encounter Details Date Type Department Care Team Description 08/04/2021 Refill Endocrinology at [facility] Niyah Pappas, [place] [address] Social History Tobacco Use Types Packs/Day Years [...] Rojas MD [facility] Neurology [place], [place] [phone] (Wo rk) 06/29/2022 Appointment Cardiology Violetta Sanford M D [address] [place] [address] (Wo rk) 06/30/2022 Infusion Hematology and Oncology 07/14/2022 Infusion Hematology and Oncology 07/28/2022 Infusion Hematology and Oncology 08/11/2022 Infusion Hematology and Oncology 08/16/2022 Office Visit Audiology Mindy Moody AUD [facility] AUDIOLOGY [place], [place] [address] (Wo rk) 11/04/2022 Office Visit Rheumatology Dante Freedman PA [facility] RHEUMATOLOGY [place], [place] [address] (Wo rk) documented as of this encounter Visit Diagnoses Not on filedocumented in this encounter Care Teams Organ Grinder Relationship Specialty Start Date End Date Violetta Sanford MD PCP - General 04/02/14 [address] [facility] [place] [address] documented as of this encounter
--- OUTSIDE RECORDS SUMMARY | 2022-06-16 12:24 | XMS_ITS | Encounter Summary ---
:1955 Author Organization [facility] [place] [address] Care Team Providers Name Role Phone Violetta Sanford MD Primary Care Provider Encounter Details Date Type Department Care Team Description 08/07/2021 Orders Only Endocrinology at [facility] Donell Hernandez MD [facility] [place] [address] ENDOCRINOLOGY DEPT. [phone] [place], [place] [address] (Wo rk) Social History Tobacco [...] Rojas MD [facility] Neurology [place], [place] [phone] (Wo rk) 06/29/2022 Appointment Cardiology Violetta Sanford M D [address] [place], [place] [address] (Oscar rk) 06/30/2022 Infusion Hematology and Oncology 07/14/2022 Infusion Hematology and Oncology 07/28/2022 Infusion Hematology and Oncology 08/11/2022 Infusion Hematology and Oncology 08/16/2022 Office Visit Audiology Mindy Moody, [facility] AUDIOLOGY [place], [place] [address] (Wo rk) 11/04/2022 Office Visit Rheumatology Dante Freedman PA [facility] RHEUMATOLOGY [place], [place] [address] (Wo rk) documented as of this encounter Visit Diagnoses Not on filedocumented in this encounter Care Teams Manager Solar Relationship Specialty Start Date End Date Violetta Sanford MD PCP - General 04/02/14 [address] [place] [address] documented as of this encounter
--- OUTSIDE RECORDS SUMMARY | 2022-06-16 12:24 | XMS_ITS | Encounter Summary ---
:1955 Author Organization [facility] [place] [address] Care Team Providers Name Role Phone Violetta Sanford MD Primary Care Provider Reason for Visit Reason Comments Medication Refill Encounter Details Date Type Department Care Team Description 08/17/2021 Refill Solid Organ Transplant at [facility] [place] Alejo france MD [facility] Giovana tyler [place] [address] [place] [address] [phone] (Oscar rk) Social History Tobacco Use Types [...] Tyler Rojas MD [facility] Neurology [place], [place] [phone] (Wo rk) 06/29/2022 Appointment Cardiology Violetta Sanford M D [address] [place] [address] (Oscar rk) 06/30/2022 Infusion Hematology and Oncology 07/14/2022 Infusion Hematology and Oncology 07/28/2022 Infusion Hematology and Oncology 08/11/2022 Infusion Hematology and Oncology 08/16/2022 Office Visit Audiology Mindy Moody AUD [facility] AUDIOLOGY [place], [place] [address] (Wo rk) 11/04/2022 Office Visit Rheumatology Dante Freedman, PA [facility] RHEUMATOLOGY [place], [place] [address] (Wo rk) documented as of this encounter Visit Diagnoses Not on filedocumented in this encounter Care Teams Dry Transfer Worker Relationship Specialty Start Date End Date Violetta Sanford MD PCP - General 04/02/14 [address] [place] [address] documented as of this encounter
--- OUTSIDE RECORDS SUMMARY | 2022-06-16 12:24 | XMS_ITS | Encounter Summary ---
:1955 Author Organization [facility] [place] [address] Care Team Providers Name Role Phone Violetta Sanford MD Primary Care Provider Encounter Details Date Type Department Care Team Description 08/06/2021 Telephone Endocrinology at [facility] C [place], [facility] [place] [address] Social History Tobacco Use Types Packs/Day [...] Office Visit Neurology Tyler Rojas MD [facility] er [address], [place] [phone] (Wo rk) 06/29/2022 Appointment Cardiology Violetta Sanford M D [address] [place], [place] [id number] ( rk) 06/30/2022 Infusion Hematology and Oncology 07/14/2022 Infusion Hematology and Oncology 07/28/2022 Infusion Hematology and Oncology 08/11/2022 Infusion Hematology and Oncology 08/16/2022 Office Visit Audiology Mindy Moody AUD [facility] AUDIOLOGY [place], [place] [address] ( rk) 11/04/2022 Office Visit Rheumatology Dante Freedman PA [facility] RHEUMATOLOGY [place], [place] [address] ( rk) documented as of this encounter Visit Diagnoses Not on filedocumented in this encounter Care Teams Office Systems Technology Instructor Relationship Specialty Start Date End Date Violetta Sanford MD PCP - General 04/02/14 [address] [place], [place] [address] documented as of this encounter
--- OUTSIDE RECORDS SUMMARY | 2022-06-16 12:24 | XMS_ITS | Encounter Summary ---
:1955 Author Organization [facility] [place] [address] Care Team Providers Name Role Phone Violetta Sanford MD Primary Care Provider Reason for Visit Reason Onset Date Comments Pump/sensor 2021 Encounter Details Date Type Department Care Team Description 2021 Telephone Endocrinology at [facility] Leny Kohler Pump/[place] [phone] Social History Tobacco Use Types Packs/Day [...] 3:06 PM EDT [facility] form faxed to [phone] on 05/25/21 Telephone Encounter - Leny Morales - 2021 10:35 AM EDT Practitioner order from [facility]. Filled out. Dr. Hernandez will sign. Secretaries will fax. Telephone Encounter - Leny Morales - 2021 8:05 AM EDT Received order from [facility] Will complete as soon as possible documented in this encounter Plan of Treatment Upcoming Encounters Date Type Specialty Care Team Description 06/16/2022 Infusion Hematology and Oncology 06/21/2022 Office Visit Neurology Tyler Rojas MD [facility] Neurology [place], [place] [address] (Wo rk) 06/29/2022 Appointment Cardiology Violetta Sanford M D [address] [place], [place] [id number] (Wo rk) 06/30/2022 Infusion Hematology and Oncology 07/14/2022 Infusion Hematology and Oncology 07/28/2022 Infusion Hematology and Oncology 08/11/2022 Infusion Hematology and Oncology 08/16/2022 Office Visit Audiology Mindy Moody AUD [facility] AUDIOLOGY DEPT [place], [place] [address] (Wo rk) 11/04/2022 Office Visit Rheumatology Dante Freedman PA [facility] RHEUMATOLOGY [place], [place] [address] (Wo rk) documented as of this encounter Visit Diagnoses Not on filedocumented in this encounter Care Teams Car Stower Relationship Specialty Start Date End Date Violetta Sanford MD PCP - General 04/02/14 [address] [place], [place] [id number] documented as of this encounter
--- OUTSIDE RECORDS SUMMARY | 2022-06-16 12:24 | XMS_ITS | Encounter Summary ---
:1955 Author Organization [place] [address] Care Team Providers Name Role Phone Violetta Sanford MD Primary Care Provider Reason for Visit Reason Comments Injections Aranesp Treatment/Therapy Plan Authorization (Routine) - Authorized Specialty Diagnoses / Procedures Referred By Contact Refer red To Contact Hematology and Diagnoses CKD (chronic kidney disease) stage 4, GFR 15-29 ml/min Nicky Baez Elizabeth Oncology Procedures MD James NUR MD [address] HEMATOLOGY/ONCOLOGY [place], [place] DEPT. [id number] [place] [address] Referral ID Status Reason Start Date Expiration Date Visits V isits Requested Authorized [id number] Authorized 10/08/2020 07/24/2023 99 99 Encounter Details Date Type Department Care Team Description 05/06/2021 Infusion Hematology Oncology at [facility] (chronic kidney disease) [facility] stage 4, GFR 15-29 ml/min [address] [place] [phone] Social History Tobacco Use Types [...] [facility] Neurology [place], [place] [address] (Oscar escobedo) 06/29/2022 Appointment Cardiology Violetta Sanford M D [address] [place] [address] (Oscar escobedo) 06/30/2022 Infusion Hematology and Oncology 07/14/2022 Infusion Hematology and Oncology 07/28/2022 Infusion Hematology and Oncology 08/11/2022 Infusion Hematology and Oncology 08/16/2022 Office Visit Audiology Mindy Moody AUD [facility] AUDIOLOGY DEPT [place], [place] [address] (Wo rk) 11/04/2022 Office Visit Rheumatology Dante Freedman, DA [facility] RHEUMATOLOGY [place], [place] [address] (Wo rk) documented as of [...] (CKD) documented in this encounter Care Teams Fire Protection Designer Relationship Specialty Start Date End Date Violetta Sanford MD PCP - General 04/02/14 [address] [place] [address] documented as of this encounter
--- OUTSIDE RECORDS SUMMARY | 2022-06-16 12:24 | XMS_ITS | Encounter Summary ---
:1955 Author Organization [facility] [place] [address] Care Team Providers Name Role Phone Violetta Sanford MD Primary Care Provider Encounter Details Date Type Department Care Team Description 08/19/2021 Telephone Solid Organ Transplant at Taj Garrison APRN [facility] Giovana tyler [place] [address] [place] [address] [phone] (Wo rk) Social History Tobacco Use Types [...] call from lab at [facility] in [facility] for critical results of Cr 4.2 [...] [facility] Neurology [place], [place] [address] (Wo rk) 06/29/2022 Appointment Cardiology Violetta Sanford M D [address] [place], [place] [address] (Wo rk) 06/30/2022 Infusion Hematology and Oncology 07/14/2022 Infusion Hematology and Oncology 07/28/2022 Infusion Hematology and Oncology 08/11/2022 Infusion Hematology and Oncology 08/16/2022 Office Visit Audiology Mindy Moody AUD [facility] AUDIOLOGY [place], [place] [address] (Wo rk) 11/04/2022 Office Visit Rheumatology Dante Freedman PA [facility] RHEUMATOLOGY [place], [place] [address] (Wo rk) documented as of this encounter Visit Diagnoses Not on filedocumented in this encounter Care Teams Dietetic Assistant Relationship Specialty Start Date End Date Violetta Sanford MD PCP - General 04/02/14 [address] [place], [place] [address] documented as of this encounter
--- OUTSIDE RECORDS SUMMARY | 2022-06-16 12:24 | XMS_ITS | Encounter Summary ---
:1955 Author Organization [facility] [place] [address] Care Team Providers Name Role Phone Violetta Sanford MD Primary Care Provider Encounter Details Date Type Department Care Team Description 05/14/2021 Telephone Endocrinology at [facility] Niyah [place], [place] [address] Social History Tobacco Use Types Packs/Day [...] Tyler Rojas MD [facility] Neurology [place], [place] [phone] (Wo rk) 06/29/2022 Appointment Cardiology Violetta Sanford M D [address] [place], [place] [phone] (Wo rk) 06/30/2022 Infusion Hematology and Oncology 07/14/2022 Infusion Hematology and Oncology 07/28/2022 Infusion Hematology and Oncology 08/11/2022 Infusion Hematology and Oncology 08/16/2022 Office Visit Audiology Mindy Moody AUD [facility] AUDIOLOGY [place], [place] [address] (Wo rk) 11/04/2022 Office Visit Rheumatology Dante Freedman PA [facility] RHEUMATOLOGY [place], [place] [address] (Wo rk) documented as of this encounter Visit Diagnoses Not on filedocumented in this encounter Care Teams Digital Sales Executive Relationship Specialty Start Date End Date Violetta Sanford MD PCP - General 04/02/14 [address] [place] [address] documented as of this encounter
--- OUTSIDE RECORDS SUMMARY | 2022-06-16 12:24 | XMS_ITS | Encounter Summary ---
:1955 Author Organization [facility] [place] [address] Care Team Providers Name Role Phone Violetta Sanford MD Primary Care Provider Reason for Visit Reason Onset Date Comments Prior Authorization 08/07/2021 Encounter Details Date Type Department Care Team Description 08/07/2021 Telephone Endocrinology at [facility] C [place] [address] Social History Tobacco Use Types Packs/Day [...] for request: Type II DM Health plan: [place] Medicaid (Fax) Authorizing printing sales representative name: Terri Sent to health plan on: 08/06/21 Health plan decision: Quantity approved: Authorization number: [id number] Start date: End date: Telephone Encounter - Leny Morales - 08/07/2021 7:51 AM EST Received PA for gilberto 2 sensor Will complete as soon as possible documented in this encounter Plan of Treatment Upcoming Encounters Date Type Specialty Care Team Description 06/16/2022 Infusion Hematology and Oncology 06/21/2022 Office Visit Neurology Tyler Rojas MD [facility] Neurology [place], [place] [phone] (Wo rk) 06/29/2022 Appointment Cardiology Violetta Sanford M D [address] [place], [place] [phone] (Wo rk) 06/30/2022 Infusion Hematology and Oncology 07/14/2022 Infusion Hematology and Oncology 07/28/2022 Infusion Hematology and Oncology 08/11/2022 Infusion Hematology and Oncology 08/16/2022 Office Visit Audiology Mindy Moody AUD [facility] AUDIOLOGY [place], [place] [address] (Wo rk) 11/04/2022 Office Visit Rheumatology Dante Freedman PA [facility] RHEUMATOLOGY [place], [place] [address] (Wo rk) documented as of this encounter Visit Diagnoses Not on filedocumented in this encounter Care Teams Crm Administrator Relationship Specialty Start Date End Date Violetta Sanford MD PCP - General 04/02/14 [address] [place], [place] [address] documented as of this encounter
--- OUTSIDE RECORDS SUMMARY | 2022-06-16 12:24 | XMS_ITS | Encounter Summary ---
:1955 Author Organization [facility] [place] [address] Care Team Providers Name Role Phone Violetta Sanford MD Primary Care Provider Encounter Details Date Type Department Care Team Description 07/21/2021 Office Visit Endocrinology at [facility] Donell Hernandez, Type 2 diabetes [facility] mellitus with [facility], [place] [address] [place] [address] long-term current use [phone] ENDOCRINOLOGY of insulin DEPT. [place], [place] [address] Social History Tobacco Use Types [...] Cr: today last lipid panel: today regular middle school technology teacher:no special shoes:no flu shot :yes COVID moderna [...] MD [facility] Neurology [place], [place] [phone] (Oscar escobedo) 06/29/2022 Appointment Cardiology Violetta Sanford M D [address] [place] [address] (Oscar escobedo) 06/30/2022 Infusion Hematology and Oncology 07/14/2022 Infusion Hematology and Oncology 07/28/2022 Infusion Hematology and Oncology 08/11/2022 Infusion Hematology and Oncology 08/16/2022 Office Visit Audiology Mindy Moody, [facility] AUDIOLOGY DEPT [place], [place] [address] (Wo rk) 11/04/2022 Office Visit Rheumatology Dante Freedman, DA [facility] RHEUMATOLOGY [place], [place] [address] (Wo rk) Scheduled Orders Name [...] insulin documented in this encounter Care Teams Classroom Instructional Aide Relationship Specialty Start Date End Date Violetta Sanford MD PCP - General 04/02/14 [address] [place] [address] documented as of this encounter
--- OUTSIDE RECORDS SUMMARY | 2022-06-16 12:25 | XMS_ITS | Encounter Summary ---
:1955 Author Organization [facility] [place] [address] Care Team Providers Name Role Phone Violetta Sanford MD Primary Care Provider Encounter Details Date Type Department Care Team Description 12/31/2020 Office Visit Hematology/Oncology Carrie Trotter, Maria Del Carmen a of chronic at [facility] MANAGING EDITOR renal failure, stage [address] [place] [address] (severe) [place] [address] HEMATOLOGY/ONCOLOG [phone] Y DEPT. [place], [place] [address] Social History Tobacco Use Types [...] in this encounter Progress Notes Carrie Trotter, MANAGING EDITOR - 12/31/2020 11:00 AM EDT Subjective: Patient [...] and have better management of his DM. Hehas had no problems with this Aranesp injections. [...] ? We will continue with aranesp 300mcg [id number]. ?Reuben will RTC in 4 months to see how he is doing. He will call sooner if any concerns or changes in status. ? documented in this encounter Plan of Treatment Upcoming Encounters Date Type Specialty Care Team Description 06/16/2022 Infusion Hematology and Oncology 06/21/2022 Office Visit Neurology Tyler Rojas MD [facility] Neurology [place], [place] [phone] ( gregg) 06/29/2022 Appointment Cardiology Violetta Sanford M D [address] [place], [place] [phone] ([facility]) 06/30/2022 Infusion Hematology and Oncology 07/14/2022 Infusion Hematology and Oncology 07/28/2022 Infusion Hematology and Oncology 08/11/2022 Infusion Hematology and Oncology 08/16/2022 Office Visit Audiology Mindy Moody AUD [facility] AUDIOLOGY DEPT [place], [place] [address] (Wo rk) 11/04/2022 Office Visit Rheumatology Dante Freedman PA [facility] RHEUMATOLOGY [place], [place] [address] (Wo gregg) documented as of this encounter Visit Diagnoses Diagnosis Anemia of chronic renal failure, stage 4 (severe) documented in this encounter Care Teams Computer Typesetter Relationship Specialty Start Date End Date Violetta Sanford MD PCP - General 04/02/14 [address] [place] [address] documented as of this encounter
--- OUTSIDE RECORDS SUMMARY | 2022-06-16 12:25 | XMS_ITS | Encounter Summary ---
:1955 Author Organization [facility] Address [facility] [place] [address] Care Team Providers Name Role Phone Violetta Sanford MD Primary Care Provider Encounter Details Date Type Department Care Team Description 10/28/2020 Laboratory Appointment Lab 3L [facility] Type 2 diabetes [facility] mellitus with [facility], with Drive long-term current use [place], [place] of insulin [phone] Social History Tobacco Use Types Packs/Day Years [...] Tyler Rojas MD [facility] Neurology [place], [place] [phone] (Wo rk) 06/29/2022 Appointment Cardiology Violetta Sanford M D [address] [place], [place] [address] (Oscar escobedo) 06/30/2022 Infusion Hematology and Oncology 07/14/2022 Infusion Hematology and Oncology 07/28/2022 Infusion Hematology and Oncology 08/11/2022 Infusion Hematology and Oncology 08/16/2022 Office Visit Audiology Mindy Moody AUD [facility] AUDIOLOGY DEPT [place] [address] (Wo rk) 11/04/2022 Office Visit Rheumatology Dante Freedman PA [facility] RHEUMATOLOGY [place], [place] [address] (Wo rk) documented as of this encounter Procedures Procedure Name Priority Date/Time Associated Diagnosis Comme [facility] HEMOGLOBIN A1C Routine 10/28/2020 11:50 AM Type 2 diabetes Results for this EDT mellitus with procedure are in hyperglycemia, with the resu lts long-term current section. use of insulin documented in this encounter Results (ABNORMAL) Hemoglobin A1c (10/28/2020 11:50 AM EDT) Analysis Performed At Patho logist Time Signature Hemoglobin A1C 6.0 (H) 4.3 - 5.6 [facility] Comment: Reference Range: 4.3 [...] 1, S67-74 Est Avg Gluc 125 mg/dL [facility] Comment: eAG equivalents for HbA1c percentages: HbA1c(%) ?eAG(mg/dL) 6.0 ?126 6.5 ?140 7.0 ?154 7.5 ?169 8.0 ?183 8.5 ?197 9.0 ?212 9.5 ?226 10.0 ? 240 Limitations: The eAG calculation has not been validated on women, individuals below 18 years old and above 70 years old, and individuals with hemoglobinopathies. Additional resources are available on [facility] ADA website. Scooby MALDONADO, Nba J, Sydnee R, et al. ??Tr anslating the A1C assay into estimated average glucose values. ??Diabetes Care 2008:31(8):7729-5539. Specimen Anatomical Collection Method Collection Time Receive d Time (Source) Location / / Volume Laterality Blood specimen 10/28/2020 11:50 1 (specimen) AM EDT 12:00 PM EDT Resulting Agency Comment Spec In Lab Donell Hernandez MD CHEMISTRY ORDERABLES Performing Organization Address City/State/[place] [address] documented in this encounter Visit Diagnoses Diagnosis Type 2 diabetes mellitus with hyperglyce maki, with long-term current use of insulin documented in this encounter Care Teams Life Skills Worker Relationship Specialty Start Date End Date Violetta Sanford MD PCP - General 04/02/14 [address] [place] [address] documented as of this encounter
--- OUTSIDE RECORDS SUMMARY | 2022-06-16 12:25 | XMS_ITS | Encounter Summary ---
:1955 Author Organization [facility] [place] [address] Care Team Providers Name Role Phone Violetta Sanford MD Primary Care Provider Reason for Referral Consultation (Routine) - Closed Specialty Diagnoses / Procedures Referred By Contact Refer red To Contact Hematology and Oncology Diagnoses CKD (chronic kidney disease) stage 4, GFR 15-29 ml/min Anemia of chronic renal failure, stage 4 (severe) [facility] Hem Onc Office MD Thang [address] [place] [phone] [place] [address] Referral ID Status Reason Start Date Expiration Date Visits V isits Requested Authorized [id number] Closed Consult, 09/26/2020 09/26/2021 26 26 Test & Treat Encounter Details Date Type Department Care Team Description 09/26/2020 Telephone Solid Organ [place] [address] Social History Tobacco Use Types Packs/Day [...] orders to both his PCP and the [facility] Heme/Onc infusion center hoping one of these offices will be able to accommodate every other week injections for him. I let him know that either his PCP or [facility] Heme/Onc should be reaching out to him to set up the injections. documented in this encounter Plan of Treatment Upcoming Encounters Date Type Specialty Care Team Description 06/16/2022 Infusion Hematology and Oncology 06/21/2022 Office Visit Neurology Tyler Rojas MD [facility] Neurology [place], [place] [phone] (Wo gregg) 06/29/2022 Appointment Cardiology Violetta Sanford M D [address] [place] [address] (Wo rk) 06/30/2022 Infusion Hematology and Oncology 07/14/2022 Infusion Hematology and Oncology 07/28/2022 Infusion Hematology and Oncology 08/11/2022 Infusion Hematology and Oncology 08/16/2022 Office Visit Audiology Mindy Moody AUD [facility] AUDIOLOGY DEPT [place], [place] [address] (Wo rk) 11/04/2022 Office Visit Rheumatology Dante Freedman PA [facility] RHEUMATOLOGY [place], [place] [address] (Wo gregg) Scheduled Referrals Name Type Priority Associated Order [...] (severe) documented in this encounter Care Teams Tool Grinder Operator External Relationship Specialty Start Date End Date Violetta Sanford MD PCP - General 04/02/14 [address] [place] [address] documented as of this encounter
--- OUTSIDE RECORDS SUMMARY | 2022-06-16 12:25 | XMS_ITS | Encounter Summary ---
:1955 Author Organization [facility] [place] [address] Care Team Providers Name Role Phone Violetta Sanford MD Primary Care Provider Reason for Visit Reason Comments Injections Arenesp 300mcg Treatment/Therapy Plan Authorization (Routine) - Authorized Specialty Diagnoses / Procedures Referred By Contact Refer red To Contact Hematology and Diagnoses CKD (chronic kidney disease) stage 4, GFR 15-29 ml/min Nicky Baez Elizabeth Oncology Procedures MD James NUR MD [address] HEMATOLOGY/ONCOLOGY [place], [place] DEPT. [id number] [place] [id number] Referral ID Status Reason Start Date Expiration Date Visits V isits Requested Authorized [id number] Authorized 10/08/2020 07/24/2023 99 99 Encounter Details Date Type Department Care Team Description 12/10/2020 Infusion Hematology Oncology at [facility] of chronic renal [facility] failure, stage 4 (severe) [address] [place], [place] [phone] Social History Tobacco Use [...] 06/21/2022 Office Visit Neurology Tyler Rojsa MD [facility] Neurology [place], [place] [phone] (Oscar escobedo) 06/29/2022 Appointment Cardiology Violetta Sanford M D [address] [place] [address] (Oscar escobedo) 06/30/2022 Infusion Hematology and Oncology 07/14/2022 Infusion Hematology and Oncology 07/28/2022 Infusion Hematology and Oncology 08/11/2022 Infusion Hematology and Oncology 08/16/2022 Office Visit Audiology Mindy Moody AUD [facility] AUDIOLOGY DEPT [place], [place] [address] (Oscar escobedo) 11/04/2022 Office Visit Rheumatology Dante Freedman PA [facility] RHEUMATOLOGY [place] [address] (Wo rk) [...] (CKD) documented in this encounter Care Teams Netezza Developer Relationship Specialty Start Date End Date Violetta Sanford MD PCP - General 04/02/14 [address] [place] [address] documented as of this encounter
--- OUTSIDE RECORDS SUMMARY | 2022-06-16 12:25 | XMS_ITS | Encounter Summary ---
:1955 Author Organization [facility] [place] [address] Care Team Providers Name Role Phone Violetta Sanford MD Primary Care Provider Encounter Details Date Type Department Care Team Description 03/06/2021 Laboratory Lab 3L Sylvia H/O kidney tilley splant; Appointment [facility] Vitamin D deficiency; Hospital retirement current use of imm unosuppressive drug; [facility] Type 2 di abetes mellitus with hyperglycemia, with long- [place] [address] Social History Tobacco Use Types Packs/Day Years [...] Rojas MD [facility] Neurology [place], [place] [phone] (Oscar escobedo) 06/29/2022 Appointment Cardiology Violetta Sanford M D [address] [place], [place] [id number] (Oscar escobedo) 06/30/2022 Infusion Hematology and Oncology 07/14/2022 Infusion Hematology and Oncology 07/28/2022 Infusion Hematology and Oncology 08/11/2022 Infusion Hematology and Oncology 08/16/2022 Office Visit Audiology Mindy Moody [facility] AUDIOLOGY DEPT [place], [place] [address] (Wo rk) 11/04/2022 Office Visit Rheumatology Dante Freedman PA [facility] RHEUMATOLOGY [place], [place] [address] (Wo rk) documented as of this encounter Procedures Procedure Name Priority Date/Time Associated Diagnosis Comme nts HC PARATHYROID Routine 03/06/2021 12:20 H/O kidney tilley splant Results for this HORMONE(PTH INTACT PM EDT Vitamin D def iciency 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 HEMOGRAM Routine 03/06/2021 12:20 H/O kidney tilley splant Results for this PM EDT Vitamin D defici ency procedure are in retirement current use of the results immunosuppressive drug secti on. DIFFERENTIAL, Routine 03/06/2021 12:20 H/O kidney tilley splant Results for this AUTOMATED PM EDT Vitamin D defici ency procedure are in retirement current use of the results immunosuppressive drug secti on. 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 LAVENDER TUBE HOLD Routine 03/06/2021 12:20 H/O kidney t ransplant Results for this PM EDT Vitamin D defici ency procedure are in retirement current use of the results immunosuppressive drug secti on. HC FK-506 Routine 03/06/2021 12:20 H/O kidney tilley splant Results for this (TACROLIMUS) PM EDT Vitamin D defici ency procedure are in retirement current use of the results immunosuppressive drug secti on. HC PCH 1,25 DI-OH Routine 03/06/2021 12:20 H/O kidney tr ansplant Results for this VIT. PM EDT Vitamin D defici ency procedure are in retirement current use of the results immunosuppressive drug secti on. 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 HC RETIC,AUTO Routine 03/06/2021 12:20 H/O kidney tilley splant Results for this INCLUDES RETHE & IRF PM EDT Vitamin D d eficiency procedure are in retirement current use of the results immunosuppressive drug secti on. 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 HC PHOSPHORUS, SERUM Routine 03/06/2021 12:20 H/O kidney transplant Results for this PM EDT Vitamin D defici ency procedure are in retirement current use of the results immunosuppressive drug secti on. 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 LDL CHOLESTEROL, Routine 03/06/2021 12:20 Type 2 diabetes terri itus Results for this DIRECT PM EDT with hyperglycemia, with pro cedure are in long-term current use of the results insulin section. 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 URINALYSIS Routine 03/06/2021 12:12 Results for this MICROSCOPIC EXAM PM EDT procedure a re in the results section. HC BK VIRUS QUANT Routine 03/06/2021 12:12 H/O kidney tr ansplant Results for this PCR,URINE PM EDT Vitamin D defici ency procedure are in retirement current use of the results immunosuppressive drug secti on. HC CALCIUM Routine 03/06/2021 12:12 H/O kidney tilley splant Results for this QUANTITATIVE, URINE PM EDT Vitamin D de ficiency procedure are in TIME SPEC 24 HR retirement current use of the results immunosuppressive drug secti on. HC PROTEIN, Routine 03/06/2021 12:12 H/O kidney tilley splant Results for this QUANTITATIVE, URINE PM EDT Vitamin D de ficiency procedure are in retirement current use of the results immunosuppressive drug secti on. HC PHOSPHORUS, URINE Routine 03/06/2021 12:12 H/O kidney transplant Results for this PM EDT Vitamin D defici ency procedure are in retirement current use of the results immunosuppressive drug secti on. 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 URINALYSIS WITH Routine 03/06/2021 12:12 H/O kidney tilley splant Results for this REFLEX CULTURE PM EDT Vitamin D defici ency procedure are in retirement current use of the results immunosuppressive drug secti on. documented in this encounter Results Differential, Automated (03/06/2021 12:20 PM EDT) P athologist Signature Neutrophils % 63.0 % [facility] Neutr Abs (ANC) 4.43 1.70 - [facility] 6.10 [facility] x10(3)/[facility] LABORATORY Lymphocytes % 25.7 % [facility] Lymphocytes Abs 1.8 0.9 - 3.2 [facility] x10(3)/[facility] LABORATORY Monocytes % 7.0 % [facility] Monocyte Abs 0.5 0.3 - 0.9 [facility] x10(3)/[facility] LABORATORY Eosinophils % 3.6 % [facility] Eosinophils Abs 0.2 0.0 - 0.4 [facility] x10(3)/[facility] LABORATORY Basophils % 0.6 % [facility] Basophils Abs 0.0 0.0 - 0.1 [facility] x10(3)/[facility] LABORATORY Immature Gran % 0.10 [...] Courtney Gran Abs 0.01 0.00 - 0.04 x10(3)/[facility] LABORATORY Specimen Anatomical Collection Method Collection Time Receive d Time (Source) Location / / Volume Laterality Blood 03/06/2021 12:20 03/06/2021 PM EDT 12:25 PM EDT Resulting Agency Comment Spec In Lab Alejo Garnett MD HEMATOLOGY ORDERABLES Performing Organization Address City/State/[place] [address] (ABNORMAL) Hemogram (03/06/2021 12:20 PM EDT) Analysis Performed At Patho logist Time Signature WBC 7.0 4.0 - 9.5 [facility] x10(3)/[facility] LABORATORY RBC 3.04 (L) 4.58 [facility] x10(6)/[facility] LABORATORY Hemoglobin 9.1 (L) 13.7 - [facility] 16.5 gm/dL [facility] LABORATORY Hematocrit 28.8 (L) 40.5 - [facility] 48.5 % [facility] LABORATORY MCV 94.7 (H) 82.9 - [facility] 93.[address] [facility] LABORATORY MCH 29.9 27.5 - [place] 32.[address] [facility] LABORATORY MCHC 31.6 (L) 32.0 - [facility] 35.7 gm/dL [facility] LABORATORY Platelets 194 145 - 357 [facility] x10(3)/[facility] LABORATORY RDWSD 47.5 (H) 36.0 - [place] 45.0 [facility] LABORATORY RDWCV 13.8 11.4 - [facility] 13.8 % [facility] LABORATORY MPV 8.5 7.6 - 12.9 [facility] LABORATORY nRBC % Auto 0.0 % [facility] nRBC Abs Auto 0.000 0.000 - [facility] 0.000 [facility] x10(3)/[facility] LABORATORY Specimen Anatomical Collection Method Collection Time Receive d Time (Source) Location / / Volume Laterality Blood 03/06/2021 12:20 03/06/2021 PM EDT 12:25 PM EDT Resulting Agency Comment Spec In Lab Alejo Garnett MD HEMATOLOGY ORDERABLES Performing Organization Address City/State/ZIP Code Phon e Number [address] LDL Cholesterol, Direct (03/06/2021 12:20 PM EDT) P athologist Signature LDL Chol 45 mg/dL [facility] LABORATORY Comment: Lowest Risk: <100 mg/dL Lower Risk: 100-129 mg/dL Borderline High Risk: 130-159 mg/dL High Risk: 160-189 mg/dL Very High Risk: >sn=995 mg/dL Specimen Anatomical Collection Method Collection Time Receive d Time (Source) Location / / Volume Laterality Blood 03/06/2021 12:20 03/06/2021 PM EDT 12:25 PM EDT Resulting Agency Comment Spec In Lab Donell Hernandez MD CHEMISTRY ORDERABLES Performing Organization Address City/State/ZIP Code Phon e Number [address] 1,25-dihydroxycholecalciferol (03/06/2021 12:20 PM EDT) P athologist Signature Vit D 1,25 18 18 - 64 [facility]mL [facility] LABORATORY Comment: ADDITIONAL INFORMATIO N This test was developed and its performa nce characteristics determined by [facility] in a manner co nsistent with CLIA requirements. This test has not been carlos ared or approved by the U.S. Food and Drug Administration. Test Performed by: [facility] - [facility] [address] [place], [place] [address] Manager Intern: Van White M.D. Ph. D.; CLIA# [id number] Specimen Anatomical Collection Method Collection Time Receive d Time (Source) Location / / Volume Laterality Blood 03/06/2021 12:20 03/06/2021 2:38 PM EDT PM EDT Resulting Agency Comment Spec In Lab Alejo Garnett MD CHEMISTRY ORDERABLES Performing Organization Address City/State/[place] [address] (ABNORMAL) Comprehensive metabolic panel (non-fasting) (03/06/2021 12:20 PM EDT) P athologist Signature Glucose Lvl 197 65 - 199 [facility] mg/dL [facility] LABORATORY Comment: Diabetes: >=200 mg/dL plus symp toms BUN 40 (H) 10 - 20 mg/dL [facility] Creatinine 3.47 (H) 0.80 - 1.50 mg/dL [facility] LAB[facility]ORY Sodium 139 135 - 145 mmol/L [facility] Potassium 4.8 3.5 - 5.0 mmol/L [facility] Comment: Please note: ??Patients with WBC >100,00 0 may have falsely elevated Potassium levels. ??For accurate Potassium quantif ication in these patients send serum separator tube (gold top) for subsequent determinations. ??Contact the Clinical Chemistry Laboratory if there are any qu estions. Chloride 106 98 - 107 mmol/L [facility] CO2 22 22 - 31 mmol/L [facility] Anion Gap 11 5 - 15 mmol/L [facility] Calcium 10.1 8.5 - 10.5 mg/dL [facility] Total Protein 7.4 6.1 - 8.0 gm/dL [facility]OR[facility]ORY Albumin 3.6 3.2 - 5.2 gm/dL [facility] AST 12 0 - 39 unit/L [facility] ALT 9 0 - 55 unit/L [facility] Alk Phos 112 40 - 130 unit/L [facility] Total Bilirubin 0.3 0.2 - 1.3 mg/dL [facility] Estimated GFR 17 (L) >=60 mL/min/1.73 m?? [facility] Comment: This patient? s estimated [...] Organization Address City/State/[place] [address] Gold Tube HOLD (03/06/2021 12:20 PM EDT) P athologist Signature Gold Hold Sample in [facility] LABORATORY Specimen Anatomical Collection Method Collection Time Receive d Time (Source) Location / / Volume Laterality Blood 03/06/2021 12:20 03/06/2021 PM EDT 12:25 PM EDT Alejo Garnett MD CHEMISTRY ORDERABLES Performing Organization Address City/State/ZIP Code Phon e Number [address] (ABNORMAL) Hemoglobin A1c (03/06/2021 12:20 PM EDT) Analysis Performed At Patho logist Time Signature Hemoglobin A1C 7.4 (H) 4.3 - 5.6 [facility] [...] Mellitus, Diabetes Care 2013; 36: Suppl. 1, S67-67 Est Avg Gluc 166 mg/dL [facility] Comment: eAG equivalents for HbA1c percentages: HbA1c(%) ?eAG(mg/dL) 6.0 ?126 6.5 ?140 7.0 ?154 7.5 ?169 8.0 ?183 8.5 ?197 9.0 ?212 9.5 ?226 10.0 ? 240 Limitations: The eAG calculation has not been validated on women, individuals below 18 years old and above 70 years old, and individuals with hemoglobinopathies. Additional resources are available on e ADA website. Scooby MALDONADO, Nba J, Sydnee R, et al. ??Tr anslating the A1C assay into estimated average glucose values. ??Diabetes Care 2008:31(8):3450-4062. Specimen Anatomical Collection Method Collection Time Receive d Time (Source) Location / / Volume Laterality Blood 03/06/2021 12:20 03/06/2021 PM EDT 12:25 PM EDT Resulting Agency Comment Spec In Lab Alejo Garnett MD CHEMISTRY ORDERABLES Performing Organization Address City/[facility]/ZIP Code Phon e Number [address] Lavender Tube HOLD (03/06/2021 12:20 PM EDT) Patholo gist Method Time Signature Lavender Hold Sample in [facility] LABORATORY Specimen Anatomical Collection Method Collection Time Receive d Time (Source) Location / / Volume Laterality Blood 03/06/2021 12:20 03/06/2021 PM EDT 12:25 PM EDT Alejo Garnett MD HEMATOLOGY ORDERABLES Performing Organization Address City/[facility] [place] [address] Lipid Panel (Reflex Direct LDL) (03/06/2021 12:20 PM EDT) P athologist Signature Chol, Total 92 mg/dL [facility] Comment: Lower Risk: <200 mg/dL Average Risk: 200-239 mg/dL Higher Risk: >yg=423 mg/dL Triglycerides 203 mg/dL [facility] Comment: Average Risk/Lower Risk: <150 mg/dL Borderline High Risk: 150-199 mg/dL High Risk: 200-499 mg/dL Very High Risk: >bo=859 mg/dL HDL 21 mg/dL [facility] Comment: Males: ?? Higher Risk: <40 mg/dL Females: ?? Higher Risk: <50 mg/dL LDL Cholesterol 30 mg/dL [facility] Comment: Lowest Risk: <100 mg/dL Lower Risk: 100-129 mg/dL Borderline High Risk: 130-159 mg/dL High Risk: 160-189 mg/dL Very High Risk: >jv=981 mg/dL Chol/HDL Ratio 4.4 ratio [facility] Lipid Interpretation See Note [facility] LABOR[facility]ORY Comment: Lipid management should be guided by a p atient? s ASCVD risk, goals and preferences. ACC/AHA Guidelines recommend high intens ity statin if clinical ASCVD or LDL greater than or equal to 190 mg/dL. http://[employer] Financeurl.com/MZP-HFN-Jkzajcwmk Adults aged 40-75 with LDL 70-189 mg/dL should have their 10 year ASCVD risk estimated with the ACC/AHA ASCVD risk es timator http://tools.acc.org/ETRZO-Fomf-Eagtiyue r/ Statin should be discussed if risk [...] Garnett MD CHEMISTRY ORDERABLES Performing Organization Address City/[facility]/ZIP Code Phon e Number [address] Magnesium (03/06/2021 12:20 PM EDT) P athologist Signature Magnesium 0.69 0.69 - 1.07 [place] mmol/L [facility] LABORATORY Specimen Anatomical Collection Method Collection Time Receive d Time (Source) Location / / Volume Laterality Blood 03/06/2021 12:20 03/06/2021 PM EDT 12:25 PM EDT Resulting Agency Comment Spec In Lab Alejo Garnett MD CHEMISTRY ORDERABLES Performing Organization Address City/[facility]/ZIP Code Phon e Number [address] Phosphorus (03/06/2021 12:20 PM EDT) P athologist Signature Phosphorus 3.3 2.5 - 4.5 [place] mg/dL [facility] LABORATORY Specimen Anatomical Collection Method Collection Time Receive d Time (Source) Location / / Volume Laterality Blood 03/06/2021 12:20 03/06/2021 PM EDT 12:25 PM EDT Resulting Agency Comment Spec In Lab Alejo Garnett MD CHEMISTRY ORDERABLES Performing Organization Address City/[facility]/[place] [address] Reticulocyte Count (03/06/2021 12:20 PM EDT) athologist Signature Retic Ct % 2.6 0.7 - 2.6 [facility] LABORATORY Retic Ct Abs 0.080 0.030 - [facility] 0.120 [facility] x10(6)/[facility] LABORATORY Immature Retic% 14.1 0.0 - 15.6 [facility] K [facility] LABORATORY Reticulated Hgb 32.5 31.3 - [facility] 40.[address] [facility] LABORATORY Specimen Anatomical Collection Method Collection Time Receive d Time (Source) Location / / Volume Laterality Blood 03/06/2021 12:20 03/06/2021 PM EDT 12:25 PM EDT Resulting Agency Comment Spec In Lab Alejo Garnett MD HEMATOLOGY ORDERABLES Performing Organization Address City/[facility]/[place] [address] PTH (03/06/2021 12:20 PM EDT) athologist Signature PTH 21 15 - [facility] LABORATORY Specimen Anatomical Collection Method Collection Time Receive d Time (Source) Location / / Volume Laterality Blood 03/06/2021 12:20 03/06/2021 PM EDT 12:25 PM EDT Resulting Agency Comment Spec In Lab Alejo Garnett MD CHEMISTRY ORDERABLES Performing Organization Address City/[facility]/[place] [address] Tacrolimus level (03/06/2021 12:20 PM EDT) athologist Signature Tacrolimus Lvl 2.8 ng/mL [facility] Comment: Trough [...] Address City/State/ZIP Code Phon e Number [address] Uric acid (03/06/2021 12:20 PM EDT) athologist Signature Uric Acid 7.5 3.5 - 8.5 [facility] mg/dL [facility] LABORATORY Specimen Anatomical Collection Method Collection Time Receive d Time (Source) Location / / Volume Laterality Blood 03/06/2021 12:20 03/06/2021 PM EDT 12:25 PM EDT Resulting Agency Comment Spec In Lab Alejo Garnett MD CHEMISTRY ORDERABLES Performing Organization Address City/[facility]/ZIP Code Phon e Number [address] Vitamin D, 25-Hydroxy (03/06/2021 12:20 PM EDT) Patholo gist Method Time Signature 25-OH Vit D 36 21 - 100 [facility] Total ng/mL [facility] LABORATORY 25-OH Vit D Sufficient [facility] LABORATORY Specimen Anatomical Collection Method Collection Time Receive d Time (Source) Location / / Volume Laterality Blood 03/06/2021 12:20 03/06/2021 PM EDT 12:25 PM EDT Resulting Agency Comment Spec In Lab Alejo Garnett MD CHEMISTRY ORDERABLES Performing Organization Address City/State/[place] [address] (ABNORMAL) Urinalysis Microscopic Exam (03/06/2021 12:12 PM EDT) P athologist Signature RBC UA 1 0 - 3 /HPF [facility] WBC UA 1 0 - 3 /HPF [facility] Bacteria UA Few (A) None /HPF [facility] Specimen Anatomical Collection Method Collection Time Receive d Time (Source) Location / / Volume Laterality Clean Catch 03/06/2021 12:12 03/06/2021 Urine PM EDT 12:28 PM EDT Resulting Agency Comment Spec In Lab Alejo Garnett MD URINE ORDERABLES Performing Organization Address City/State/[place] [address] BKV Quant Urine (03/06/2021 12:12 PM EDT) Component Value Ref Test Analysis Performed At Patholo gist Range Method Time Signature BKV Urine Not Detected [facility] LABORATORY BKV Urine BK Virus Urine Result Interpretation [facility] Result: BK Virus not detected HOSPITAL Specimen type: urine LABORATOR Y Assay Range: 2.80-7.80 log copies/mL (6.28x10^2 - 6.28x10^7 copies/mL) Methods: Quantitative real-time polymerase chain react ion (PCR) of viral DNA isolated from plasma was performed using [employer] BKV analyte-specific reagents and the [employer] System that automates both nucleic a alonzo [...] Advanc ed Technology (CGAT) Laboratory at [facility]. It has not been cleared [...] - GENERAL ORDER STEPHANIE Performing Organization Address City/[facility]/[place] [address] Calcium Creatinine Ratio, random urine (03/06/2021 12:12 PM EDT) P athologist Signature U Calcium 3.6 mg/dL [facility] U Creatinine 62 mg/dL [facility] Ca/Cre Ratio 0.06 ratio [facility] Specimen Anatomical Collection Method Collection Time Receive d Time (Source) Location / / Volume Laterality Urine 03/06/2021 12:12 03/06/2021 PM EDT 12:28 PM EDT Resulting Agency Comment Spec In Lab Alejo Garnett MD URINE ORDERABLES Performing Organization Address City/[facility]/[place] [address] Magnesium, urine, random (03/06/2021 12:12 PM EDT) P athologist Signature U Mg Ran 1.71 mmol/L [facility] Specimen Anatomical Collection Method Collection Time Receive d Time (Source) Location / / Volume Laterality Urine 03/06/2021 12:12 03/06/2021 PM EDT 12:28 PM EDT Resulting Agency Comment Spec In Lab Alejo Garnett MD URINE ORDERABLES Performing Organization Address City/[facility]/ZIP Code Phon e Number [address] Phosphorus, urine, random (03/06/2021 12:12 PM EDT) P athologist Signature U Phosphorus 29.3 mg/dL [facility] Specimen Anatomical Collection Method Collection Time Receive d Time (Source) Location / / Volume Laterality Urine 03/06/2021 12:12 03/06/2021 PM EDT 12:28 PM EDT Resulting Agency Comment Spec In Lab Alejo Garnett MD URINE ORDERABLES Performing Organization Address City/State/ZIP Code Phon e Number [address] (ABNORMAL) Protein/Creatinine Ratio, urine (03/06/2021 12:12 PM EDT) P athologist Signature U Creatinine 62 mg/dL [facility] U Protein Ran 70 (H) 0 - 12 [facility] mg/dL [facility] LABORATORY Prot/Cre Ratio 1.1 ratio [facility] LABORATORY Specimen Anatomical Collection Method Collection Time Receive d Time (Source) Location / / Volume Laterality Urine 03/06/2021 12:12 03/06/2021 PM EDT 12:28 PM EDT Resulting Agency Comment Spec In Lab Alejo Garnett MD URINE ORDERABLES Performing Organization Address City/[facility]/ZIP Code Phon e Number [address] (ABNORMAL) Urinalysis with reflex Culture (03/06/2021 12:12 PM EDT) Patholo gist Method Time Signature Glucose UA Negative Negative [facility] LABORATORY Protein UA 100 (A) Negative [facility] mg/dL [facility] LABORATORY Bilirubin UA Negative Negative [facility] mg/dL [facility] LABORATORY Comment: Clinical correlation required for positi ve Urine Bilirubin results as false positive may occur with some drugs and d rug related products. If a false positive is suspected a serum total bili reyna should be considered if clinically indicated. Urobilinogen UA Normal Normal mg/dL [facility] LABORATORY pH UA 6.0 5.0 - 8.0 [facility]OR[facility] Blood UA Negative Negative mg/dL [facility] Ketones UA Negative Negative mg/dL [facility] Nitrite UA Negative Negative [facility]OR[facility] Leukocytes UA Negative Negative [facility] LABORATORY Appearance UA Clear Clear [facility] LABORATORY Spec [place] UA 1.013 1.005 - 1.030 [facility] LABORATORY Color UA Yellow Yellow [facility] Culture Reflexed No [facility] LABORATORY Specimen Anatomical Collection Method Collection Time Receive d Time (Source) Location / / Volume Laterality Clean Catch 03/06/2021 12:12 03/06/2021 Urine PM EDT 12:26 PM EDT Resulting Agency Comment Spec In Lab Alejo Garnett MD URINE ORDERABLES Performing Organization Address City/State/[place] [address] documented in this encounter Visit Diagnoses Diagnosis H/O kidney transplant Kidney replaced by transplant Vitamin D deficiency Unspecified vitamin D deficiency retirement current use of immunosuppressi ve drug Type 2 diabetes mellitus with hyperglyce maki, with long-term current use of insulin documented in this encounter Care Teams Silk Finisher Relationship Specialty Start Date End Date Violetta Sanford MD PCP - General 04/02/14 [address] [place] [address] documented as of this encounter
--- OUTSIDE RECORDS SUMMARY | 2022-06-16 12:25 | XMS_ITS | Encounter Summary ---
:1955 Author Organization [facility] [address] Care Team Providers Name Role Phone Violetta Sanford MD Primary Care Provider Reason for Visit Consultation (Routine) - Closed Specialty Diagnoses / Procedures Referred By Contact Refer red To Contact Hematology and Oncology Diagnoses CKD (chronic kidney disease) stage 4, GFR 15-29 ml/min Anemia of chronic renal failure, stage 4 (severe) Alejo Garnett Hem Onc Office MD Thang [address] [place] [phone] [place] [address] Referral ID Status Reason Start Date Expiration Date Visits V isits Requested Authorized [id number] Closed Consult, 09/26/2020 09/26/2021 26 26 Test & Treat Encounter Details Date Type Department Care Team Description 10/08/2020 Office Visit Hematology/Oncology Nicky Baez of chronic renal failure, stage 4 (severe); at [facility] MD James H/O kidney transplant [address] [place] [phone] HEMATOLOGY/ONCOLOGY [phone] DEPT. [place], [place] [address] (Wo rk) Social History Tobacco [...] - 10/08/2020 3:00 PM EDT Hematology Clinic [place] [id number] NEW PATIENT EVALUATION Patient Active Problem List [...] PRESENT ILLNESS: Patient prefers to be called: [place] Support person(s) : , Linda It was [...] performed by HENNA GAMINO JR at [facility] MAIN OR ??? PRO LAP, APPENDECTOMY 06/16/2013 LAPAROSCOPIC APPENDECTOMY performed by Angel Mccann MD at [facility] MAIN OR ??? US RENAL TRANSPLANT LEFT Left 06/26/2019 US Renal Transplant Left 06/26/2019 [facility] RAD ULTRASOUND ROS Energy level : [...] as needed for Congestion. ??? Blood-Glucose Sensor (8fit - Fitness for the rest of us G6 Sensor) Device by [facility].(Non-Drug; Combo Route) route. Sensor, assembly riveter andtransmitter ??? metoprolol succinate XL (Toprol-XL) 50 mg Tablet Sustained Release 24 hr Take 1 tablet by mouth daily. 90 tablet 1 ??? triamcinolone (NASACORT or NASACORT OTC) 55 mcg Aerosol, [place] 2 sprays by Nasal route daily. 1 [...] 1 Device by [facility].(Non- Drug; Combo [...] lungs daily. 1 ??? Miscellaneous Medical Supply [facility] 4 Devices by [facility].(Non-Drug; Combo Route) [...] transplant ??? Sulfamethoxazole-Trimethoprim FAMILY HISTORY: Mother: at [facility] of complication cholecystectomy (CVA and infection) Father: cancer Sibs: cancer Children: 3 biologic children. One son with obesity and DM. Depression. Another son w/ complicationsfrom army combat. Third son messed up Other: negative SOCIAL HISTORY Personal: Linda (3rd ) 5 years. They went to high school together. 3 children from prior marriage. Work history: disability X 45 years; Previously worked in [employer]. ETOH: rare Smoking: Quit, remote smoker Marijuana or other recreational drug use: none HIPPA Contact Permission: OK to talk to Linda and tomasa Jay RN, works at [employer]. OK to leave message on home or [...] 3 weeks. He will go to the [facility] lab for CBC andthen come down [...] This note was written or modified using Delfm[employer] voice recognition software. The final note was [...] Tyler Rojas MD [facility] Neurology [place], [place] [phone] ( gregg) 06/29/2022 Appointment Cardiology Violetta Sanford M D [address] [place] [address] ( rk) 06/30/2022 Infusion Hematology and Oncology 07/14/2022 Infusion Hematology and Oncology 07/28/2022 Infusion Hematology and Oncology 08/11/2022 Infusion Hematology and Oncology 08/16/2022 Office Visit Audiology Mindy Moody AUD [facility] AUDIOLOGY DEPT [place], [place] [address] ( gregg) 11/04/2022 Office Visit Rheumatology Dante Freedman PA [facility] RHEUMATOLOGY [place], [place] [address] ( gregg) documented as of this encounter Visit Diagnoses Diagnosis Anemia of chronic renal failure, stage 4 (severe) H/O kidney transplant Kidney replaced by transplant documented in this encounter Care Teams Certified Prosthetist Relationship Specialty Start Date End Date Violetta Sanford MD PCP - General 04/02/14 [address] [place] [address] documented as of this encounter
--- OUTSIDE RECORDS SUMMARY | 2022-06-16 12:25 | XMS_ITS | Encounter Summary ---
:1955 Author Organization [facility] [place] [address] Care Team Providers Name Role Phone Violetta Sanford MD Primary Care Provider Reason for Visit Reason Onset Date Comments Labs Only 03/04/2021 Lab Tracking Encounter Details Date Type Department Care Team Description 03/04/2021 Telephone Hematology Oncology at [facility], Labs Only (Lab Tracking) [facility] Angelica Gilbert RN [address] [place] [phone] Social History Tobacco Use Types Packs/Day [...] 1:13 PM EDT LAB TRACKING Brett Dailey [id number] 1955 DIAGNOSIS: anemia d/t CKD stage IV, h/o kidney transplant LABS: CBC every 3 weeks MEDICATIONS: Aranesp 300 mcg every 3 weeks if HGB <12 ASSESSMENT/PLAN: Lab sent to Carrie Trotter APRN for review. Will continue every 3 week CBC and Aranesp. Will go to lab at [facility] 1 hr prior to infusion [...] Tyler Rojas MD [facility] Neurology [place], [place] [phone] (Wo rk) 06/29/2022 Appointment Cardiology Violetta Sanford M D [address] [place] [address] (Wo rk) 06/30/2022 Infusion Hematology and Oncology 07/14/2022 Infusion Hematology and Oncology 07/28/2022 Infusion Hematology and Oncology 08/11/2022 Infusion Hematology and Oncology 08/16/2022 Office Visit Audiology Mindy Moody AUD [facility] AUDIOLOGY DEPT [place], [place] [address] (Wo rk) 11/04/2022 Office Visit Rheumatology Dante Freedman PA [facility] RHEUMATOLOGY [place], [place] [address] (Wo rk) documented as of [...] on filedocumented in this encounter Care Teams Treating Plant Operator Relationship Specialty Start Date End Date Viloetta Sanford MD PCP - General 04/02/14 [address] [place] [address] documented as of this encounter
--- OUTSIDE RECORDS SUMMARY | 2022-06-16 12:25 | XMS_ITS | Encounter Summary ---
:1955 Author Organization [facility] [place] [address] Care Team Providers Name Role Phone Violetta Sanford MD Primary Care Provider Encounter Details Date Type Department Care Team Description 11/25/2020 TH Visit Cardiology at [facility] J Luis Quispe, PAF (paroxysmal (TeleHealth) [facility] atrial fibrillation) [place] [address] CARDIOLOGY DEPT. [phone] [place], [place] [address] (Wo rk) Social History [...] from the original note were not included. [facility] [place] [address] CARDIOLOGY/ VASCULAR OUTPATIENT NOTE Brett Sania Dailey Violetta Sanford MD TELEHEALTH VISIT : #history of PAF in the setting of PNA/hospital #HTN ?? Other martínez issues: #s/p kidney transplant 2007 #IDDM #double amputation, in wheelchair ?? 64 year old male with diabetes and multiple complications including: bilateral BKA, ESRD s/p kidney transplant in 2007 referred to cardiology clinic for skilled nursing management of PAF. ??He was in NSR in July. He has no significant history of CAD. ??He has had a prior stress echo that was normal in 2014. ??He denies any history of MA. ?? Apparently during a hospitalization for PNA [...] 310) with mostly diet Patient lives in [place] with his . Patient is in [...] as needed for Congestion. ??? Blood-Glucose Sensor ([employer]oom[employer] G6 Sensor) Device by [facility].(Non-Drug; Combo Route) route. Sensor, net trainer andtransmitter ??? calciTRIoL (Rocaltrol) 0.5 mcg Capsule Take 1 capsule by mouth daily. 90 capsule 3 ??? metoprolol succinate XL (Toprol-XL) 50 mg Tablet Sustained Release 24 hr Take 1 tablet by mouth daily. 90 tablet 1 ??? amLODIPine (Norvasc) 10 mg Tablet Take 0.5 tablets by mouth daily. 90 tablet 3 ??? fluticasone propionate (FLONASE) 50 mcg/actuation [place], Suspension INSTILL 2 SPRAYS INTO EACH NOSTRIL ONCE A DAY NEEDED ??? triamcinolone (NASACORT or NASACORT OTC) 55 mcg Aerosol, [place] 2 sprays by Nasal route daily. (Patient [...] x 1/2 Needle [address] [facility].(Non- Drug; Combo Route) route 3 times daily. [...] lungs daily. 1 ??? Miscellaneous Medical Supply [facility] [address] [facility].(Non-Drug; Combo Route) route daily. Rubber sheath for [...] PAF in the setting of PNA/hospital #HTN #s/p kidney transplant 2007 #IDDM #double amputation, in wheelchair ?? 65 year old male with diabetes and multiple complications including: bilateral BKA, ESRD s/p kidney transplant in 2007 referred to cardiology clinic for skilled nursing management of PAF. ??He was in NSR in July. He has no significant history of CAD. ??He has had a prior stress echo that was normal in 2014. ??He denies any history of MA. Recommendations: -current GDMT includes: ASA, met sux 50, losartan 25, atorva 20; -additional BP meds: hydral 100 tid, amlodipine 10, -stable from cardiac perspective -no changes to cardiac meds at this time. Follow-up: 1 year or prn. J Lius Quispe MD, [facility] WITH [facility] Cardiovascular Medicine [facility] Clinic scheduling: Mari Gant [phone] Clinic Team Nurse: Maria L Paz RN [phone] I provided care to the patient today via telephone conference. The total time associated with this visit was 25 minutes. documented in this encounter Plan of Treatment Upcoming Encounters Date Type Specialty Care Team Description 06/16/2022 Infusion Hematology and Oncology 06/21/2022 Office Visit Neurology Tyler Rojas MD [facility] [address] [place], [place] [phone] (Wo rk) 06/29/2022 Appointment Cardiology Violetta Sanford M D [address] [place] [address] (Wo rk) 06/30/2022 Infusion Hematology and Oncology 07/14/2022 Infusion Hematology and Oncology 07/28/2022 Infusion Hematology and Oncology 08/11/2022 Infusion Hematology and Oncology 08/16/2022 Office Visit Audiology Mindy Moody AUD [facility] AUDIOLOGY DEPT [place], [place] [address] (Wo rk) 11/04/2022 Office Visit Rheumatology Dante Freedman PA [facility] RHEUMATOLOGY [place], [place] [address] (Wo rk) documented as of this encounter Visit Diagnoses Diagnosis PAF (paroxysmal atrial fibrillation) Atrial fibrillation documented in this encounter Care Teams Corset Maker Relationship Specialty Start Date End Date Violetta Sanford MD PCP - General 04/02/14 [address] [place] [address] documented as of this encounter
--- OUTSIDE RECORDS SUMMARY | 2022-06-16 12:25 | XMS_ITS | Encounter Summary ---
:1955 Author Organization [facility] [place] [address] Care Team Providers Name Role Phone Violetta Sanford MD Primary Care Provider Reason for Visit Reason Onset Date Comments Labs Only 01/21/2021 Lab tracking Encounter Details Date Type Department Care Team Description 01/21/2021 Telephone Hematology Oncology at [facility], Labs Only (Lab [facility] RN tracking) [address] [place] [phone] Social History Tobacco Use Types Packs/Day [...] 1:54 PM EDT LAB TRACKING Brett Dailey [id number] 1955 DIAGNOSIS: anemia d/t CKD stage IV, h/o kidney transplant LABS: CBC every 3 weeks MEDICATIONS: Aranesp 300 mcg every 3 weeks if HGB <12 ASSESSMENT/PLAN: Lab sent to Dr. Baez and SEWER CONTRACTOR for review. Will continue every 3 week CBC and Aranesp. Will go to lab at [facility] 1 hr prior to infusion appts here for CBC. He prefers afternoon appts. Pt is in agreement with plan. Spoke to lab at [facility] and asked that they stop drawing [...] Tyler Rojas MD [facility] Neurology [place], [place] [phone] (Wo rk) 06/29/2022 Appointment Cardiology Violetta Sanford M D [address] [place] [address] (Wo rk) 06/30/2022 Infusion Hematology and Oncology 07/14/2022 Infusion Hematology and Oncology 07/28/2022 Infusion Hematology and Oncology 08/11/2022 Infusion Hematology and Oncology 08/16/2022 Office Visit Audiology Mindy Moody AUD [facility] AUDIOLOGY DEPT [place], [place] [address] (Wo rk) 11/04/2022 Office Visit Rheumatology Dante Freedman PA [facility] RHEUMATOLOGY [place], [place] [address] (Wo rk) documented as of [...] on filedocumented in this encounter Care Teams Administrator Social Welfare Relationship Specialty Start Date End Date Violetta Sanford MD PCP - General 04/02/14 [address] [place] [address] documented as of this encounter
--- OUTSIDE RECORDS SUMMARY | 2022-06-16 12:25 | XMS_ITS | Encounter Summary ---
:1955 Author Organization [facility] [place] [address] Care Team Providers Name Role Phone Violetta Sanford MD Primary Care Provider Encounter Details Date Type Department Care Team Description 11/10/2020 Orders Only Endocrinology at [facility] Monica Jimenez Type 2 diabetes [facility] [place] [phone] [facility], with [phone] CENTER long-term current use ENDOCRINOLOGY of insulin [place], [place] [address] Social History Tobacco Use Types [...] MD [facility] Neurology [place], [place] [phone] (Wo rk) 06/29/2022 Appointment Cardiology Violetta Sanford M D [address] [place], [place] [address] (Oscar escobedo) 06/30/2022 Infusion Hematology and Oncology 07/14/2022 Infusion Hematology and Oncology 07/28/2022 Infusion Hematology and Oncology 08/11/2022 Infusion Hematology and Oncology 08/16/2022 Office Visit Audiology Mindy Moody AUD [facility] AUDIOLOGY [place], [place] [address] (Wo rk) 11/04/2022 Office Visit Rheumatology Dante Freedman PA [facility] RHEUMATOLOGY [place], [place] [address] (Wo rk) documented as of this encounter Visit Diagnoses Diagnosis Type 2 diabetes mellitus with hyperglyce maki, with long-term current use of insulin documented in this encounter Care Teams Show Dog Trainer Relationship Specialty Start Date End Date Violetta Sanford MD PCP - General 04/02/14 [address] [place] [address] documented as of this encounter
--- OUTSIDE RECORDS SUMMARY | 2022-06-16 12:25 | XMS_ITS | Encounter Summary ---
:1955 Author Organization [facility] [place] [address] Care Team Providers Name Role Phone Violetta Sanford MD Primary Care Provider Reason for Visit Reason Comments Injections SC aranesp Treatment/Therapy Plan Authorization (Routine) - Authorized Specialty Diagnoses / Procedures Referred By Contact Refer red To Contact Hematology and Diagnoses CKD (chronic kidney disease) stage 4, GFR 15-29 ml/min Nicky Baez Elizabeth Oncology Procedures MD James NUR MD [address] HEMATOLOGY/ONCOLOGY [place], [place] DEPT. [id number] [place] [address] Referral ID Status Reason Start Date Expiration Date Visits V isits Requested Authorized [id number] Authorized 10/08/2020 07/24/2023 99 99 Encounter Details Date Type Department Care Team Description 03/04/2021 Infusion Hematology Oncology at [facility] of chronic renal [facility] failure, stage 4 (severe) [address] [place], [place] [phone] Social History Tobacco Use [...] documented in this encounter Progress Notes Millie Kc, RN - 03/04/2021 2:00 PM EDT Infusion [...] Rojas MD [facility] Neurology [place], [place] [phone] (Oscar escobedo) 06/29/2022 Appointment Cardiology Violetta Sanford M D [address] [place] [address] (Oscar escobedo) 06/30/2022 Infusion Hematology and Oncology 07/14/2022 Infusion Hematology and Oncology 07/28/2022 Infusion Hematology and Oncology 08/11/2022 Infusion Hematology and Oncology 08/16/2022 Office Visit Audiology Mindy Moody AUD [facility] AUDIOLOGY DEPT [place], [place] [address] (Wo rk) 11/04/2022 Office Visit Rheumatology Dante Freedman PA [facility] ER DR [address]ROY[address] STELLA DRAPER [address] (Wo rk) documented as [...] (CKD) documented in this encounter Care Teams House Furnishings Supervisor Relationship Specialty Start Date End Date Violetta Sanford MD PCP - General 04/02/14 [facility] [address] [place] [address] documented as of this encounter
--- OUTSIDE RECORDS SUMMARY | 2022-06-16 12:25 | XMS_ITS | Encounter Summary ---
:1955 Author Organization [facility] [place] [address] Care Team Providers Name Role Phone Violetta Sanford MD Primary Care Provider Reason for Visit Reason Onset Date Comments Labs Only 12/10/2020 Lab Tracking Encounter Details Date Type Department Care Team Description 12/10/2020 Telephone Hematology/Oncology at [facility], Labs Only (Lab Tracking) [facility] Angelica Gilbert RN [address] [place] [phone] Social History Tobacco Use Types Packs/Day [...] 12:51 PM EDT LAB TRACKING Brett Dailey [id number] 1955 DIAGNOSIS: anemia d/t CKD stage IV, [...] Rojas MD [facility] Neurology [place], [place] [phone] (Wo rk) 06/29/2022 Appointment Cardiology Violetta Sanford M D [address] [place] [address] (Wo rk) 06/30/2022 Infusion Hematology and Oncology 07/14/2022 Infusion Hematology and Oncology 07/28/2022 Infusion Hematology and Oncology 08/11/2022 Infusion Hematology and Oncology 08/16/2022 Office Visit Audiology Mindy Moody AUD [facility] AUDIOLOGY DEPT [place], [place] [address] (Wo rk) 11/04/2022 Office Visit Rheumatology Dante Freedman PA [facility] RHEUMATOLOGY [place], [place] [address] (Wo rk) documented as of [...] this encounter Results Iron and TIBC (12/10/2020) athologist Signature Iron 62 TIBC 184 Ferritin 112 Specimen (Source) Anatomical Location Collection Method / Collectio n Time Received Time / Laterality Volume Blood Carrie Giovana Trotter MECHANICAL SOUND TECHNICIAN CHEMISTRY ORDERABLES CBC (with Diff) (12/10/2020) athologist Signature WBC 6.83 Hemoglobin 9.7 Hematocrit 30.4 MCV 92.7 Platelets 192 Neutr Abs (ANC) 4.23 Specimen (Source) Anatomical Location Collection Method / Collectio n Time Received Time / Laterality Volume Blood Carrie D Schabret MECHANICAL SOUND TECHNICIAN HEMATOLOGY ORDERABLES Comprehensive metabolic panel (non-fasting) (12/06/2020) athologist Signature BUN 48 Creatinine 3.2 Sodium 139 Potassium 5.0 Specimen (Source) Anatomical Location Collection Method / Collectio n Time Received Time / Laterality Volume Blood Carrie D Schabret MECHANICAL SOUND TECHNICIAN CHEMISTRY ORDERABLES documented in this encounter Visit Diagnoses Not on filedocumented in this encounter Care Teams Claims Sorter Relationship Specialty Start Date End Date Violetta Sanford MD PCP - General 04/02/14 [address] [place] [address] documented as of this encounter
--- OUTSIDE RECORDS SUMMARY | 2022-06-16 12:25 | XMS_ITS | Encounter Summary ---
:1955 Author Organization [facility] [address] Care Team Providers Name Role Phone Violetta Sanford MD Primary Care Provider Reason for Visit Reason Comments Injections Aranesp injection Treatment/Therapy Plan Authorization (Routine) - Authorized Specialty Diagnoses / Procedures Referred By Contact Refer red To Contact Hematology and Diagnoses CKD (chronic kidney disease) stage 4, GFR 15-29 ml/min Nicky Baez Elizabeth Oncology Procedures MD James NUR MD [address] HEMATOLOGY/ONCOLOGY [place], [place] DEPT. [id number] [place] [address] Referral ID Status Reason Start Date Expiration Date Visits V isits Requested Authorized [id number] Authorized 10/08/2020 07/24/2023 99 99 Encounter Details Date Type Department Care Team Description 10/29/2020 Infusion Hematology Oncology at [facility] of chronic renal [facility] failure, stage 4 (severe) [address] [place], [place] [phone] Social History Tobacco Use [...] Tyler Rojas MD [facility] Neurology [place], [place] [phone] (Oscar escobedo) 06/29/2022 Appointment Cardiology Violetta Sanford M D [address] [place] [address] (Oscar escobedo) 06/30/2022 Infusion Hematology and Oncology 07/14/2022 Infusion Hematology and Oncology 07/28/2022 Infusion Hematology and Oncology 08/11/2022 Infusion Hematology and Oncology 08/16/2022 Office Visit Audiology Mindy Moody AUD [facility] AUDIOLOGY DEPT [place], [place] [address] (Oscar escobedo) 11/04/2022 Office Visit Rheumatology Dante Freedman PA [facility] RHEUMATOLOGY [place], [place] [address] (Wo rk) documented [...] (CKD) documented in this encounter Care Teams Wheat And Oats Flake Miller Relationship Specialty Start Date End Date Violetta Sanford MD PCP - General 04/02/14 [address] [place] [address] documented as of this encounter
--- OUTSIDE RECORDS SUMMARY | 2022-06-16 12:25 | XMS_ITS | Encounter Summary ---
:1955 Author Organization [facility] [place] [address] Care Team Providers Name Role Phone Violetta Sanford MD Primary Care Provider Reason for Visit Reason Comments Injections aranesp Treatment/Therapy Plan Authorization (Routine) - Authorized Specialty Diagnoses / Procedures Referred By Contact Refer red To Contact Hematology and Diagnoses CKD (chronic kidney disease) stage 4, GFR 15-29 ml/min Nicky Baez Elizabeth Oncology Procedures MD James NUR MD [address] HEMATOLOGY/ONCOLOGY [place], [place] DEPT. [id number] [place] [id number] Referral ID Status Reason Start Date Expiration Date Visits V isits Requested Authorized [id number] Authorized 10/08/2020 07/24/2023 99 99 Encounter Details Date Type Department Care Team Description 10/10/2020 Infusion Hematology Oncology at [facility] of chronic renal [facility] failure, stage 4 (severe) [address] [place], [place] [phone] Social History Tobacco Use [...] Treatment: Aranesp Injection Labs: Done 10/08/20 at [facility]- Hgb 8.8/Hct 27.7 Aranesp 300 mcg injected SQ in right arm. Patient aware to call clinic with any questions or concerns. Plan: Return to clinic as scheduled. documented in this encounter Plan of Treatment Upcoming Encounters Date Type Specialty Care Team Description 06/16/2022 Infusion Hematology and Oncology 06/21/2022 Office Visit Neurology Tyler Rojas MD [facility] Neurology [place], [place] [phone] (Wo rk) 06/29/2022 Appointment Cardiology Violetta Sanford M D [facility] ALONDRA Miller [address] [address] (Wo rk) 06/30/2022 Infusion Hematology and Oncology 07/14/2022 Infusion Hematology and Oncology 07/28/2022 Infusion Hematology and Oncology 08/11/2022 Infusion Hematology and Oncology 08/16/2022 Office Visit Audiology Mindy Moody AUD [facility] AUDIOLOGY [place], [place] [address] (Wo rk) 11/04/2022 Office Visit Rheumatology Dante Freedman PA [facility] RHEUMATOLOGY [place] [address]375 [...] (CKD) documented in this encounter Care Teams Staff Counselor Relationship Specialty Start Date End Date Violetta Sanford MD PCP - General 04/02/14 [address] [place] [address] documented as of this encounter
--- OUTSIDE RECORDS SUMMARY | 2022-06-16 12:25 | XMS_ITS | Encounter Summary ---
:1955 Author Organization [facility] [place] [address] Care Team Providers Name Role Phone Violetta Sanford MD Primary Care Provider Reason for Visit Reason Onset Date Comments Appointment 10/09/2020 Encounter Details Date Type Department Care Team Description 10/09/2020 Telephone Rheumatology at [facility] Sammy [place] [address] Social History Tobacco Use Types Packs/Day Years [...] Tyler Rojas MD [facility] Dr [address] [place], [place] [phone] (Wo rk) 06/29/2022 Appointment Cardiology Violetta Sanford M D [address] [place], [place] [address] (Wo rk) 06/30/2022 Infusion Hematology and Oncology 07/14/2022 Infusion Hematology and Oncology 07/28/2022 Infusion Hematology and Oncology 08/11/2022 Infusion Hematology and Oncology 08/16/2022 Office Visit Audiology Mindy Moody, WENDI [facility] AUDIOLOGY [place], [place] [address] (Wo rk) 11/04/2022 Office Visit Rheumatology Dante Freedman, PA [facility] RHEUMATOLOGY [place], [place] [address] ( rk) documented as of this encounter Visit Diagnoses Not on filedocumented in this encounter Care Teams Master Ocean Yacht Relationship Specialty Start Date End Date Violetta Sanford MD PCP - General 04/02/14 [address] [place] [address] documented as of this encounter
--- OUTSIDE RECORDS SUMMARY | 2022-06-16 12:25 | XMS_ITS | Encounter Summary ---
:1955 Author Organization [facility] [address] Care Team Providers Name Role Phone Violetta Sanford MD Primary Care Provider Encounter Details Date Type Department Care Team Description 02/16/2021 External Results [place] [address] Social History Tobacco Use Types Packs/Day [...] Rojas MD [facility] Neurology [place], [place] [phone] (Wo rk) 06/29/2022 Appointment Cardiology Violetta Sanford M D [address] [place] [address] [address] [place], [place] [address] (Oscar rk) 06/30/2022 Infusion Hematology and Oncology 07/14/2022 Infusion Hematology and Oncology 07/28/2022 Infusion Hematology and Oncology 08/11/2022 Infusion Hematology and Oncology 08/16/2022 Office Visit Audiology Mindy Moody AUD [facility] AUDIOLOGY DEPT [place], [place] [address] (Wo rk) 11/04/2022 Office Visit Rheumatology Dante Freedman PA [facility] RHEUMATOLOGY [place], [place] [address] (Wo rk) documented as [...] on filedocumented in this encounter Care Teams Flavor Maker Relationship Specialty Start Date End Date Violetta Sanford MD PCP - General 04/02/14 [address] [place] [address] documented as of this encounter
--- OUTSIDE RECORDS SUMMARY | 2022-06-16 12:25 | XMS_ITS | Encounter Summary ---
:1955 Author Organization [facility] [place] [address] Care Team Providers Name Role Phone Violetta Sanford MD Primary Care Provider Reason for Visit Reason Onset Date Comments Medication Refill 09/02/2020 Encounter Details Date Type Department Care Team Description 09/02/2020 Refill Solid Organ Transplant at [facility] Alejo france MD [facility] nayeli TRANS[place] [address] [place] [address] [phone] (Oscar escobedo) Social History Tobacco Use Types [...] Rojas MD [facility] Neurology [place], [place] [phone] (Wo rk) 06/29/2022 Appointment Cardiology Violetta Sanford M D [address] [place], [place] [address] (Oscar rk) 06/30/2022 Infusion Hematology and Oncology 07/14/2022 Infusion Hematology and Oncology 07/28/2022 Infusion Hematology and Oncology 08/11/2022 Infusion Hematology and Oncology 08/16/2022 Office Visit Audiology Mindy Moody, W[facility]I [facility] AUDIOLOGY [place], [place] [address] (Wo rk) 11/04/2022 Office Visit Rheumatology Dante Freedman, PA [facility] RHEUMATOLOGY [place], [place] [address] (Wo rk) documented as of this encounter Visit Diagnoses Not on filedocumented in this encounter Care Teams Plant Wrapper Relationship Specialty Start Date End Date Violetta Sanford MD PCP - General 04/02/14 [address] [place] [address] documented as of this encounter
--- OUTSIDE RECORDS SUMMARY | 2022-06-16 12:25 | XMS_ITS | Encounter Summary ---
:1955 Author Organization [facility] [place] [address] Care Team Providers Name Role Phone Violetta Sanford MD Primary Care Provider Reason for Visit Reason Onset Date Comments Labs Only 10/09/2020 Lab tracking Encounter Details Date Type Department Care Team Description 10/09/2020 Telephone Hematology/Oncology at [facility], Labs Only (Lab [facility] RN tracking) [address] [place] [phone] Social History Tobacco Use Types Packs/Day [...] ORDERED: cbc diff every 3 weeks at [facility]. Next due 10/29 to get back to Tue apts. ?? MEDICATIONS: Aranesp 300mg if hg [...] Rojas MD [facility] Neurology [place], [place] [phone] (Wo rk) 06/29/2022 Appointment Cardiology Violetta Sanford M D [facility] [address] [place] [address] (Wo rk) 06/30/2022 Infusion Hematology and Oncology 07/14/2022 Infusion Hematology and Oncology 07/28/2022 Infusion Hematology and Oncology 08/11/2022 Infusion Hematology and Oncology 08/16/2022 Office Visit Audiology Mindy Moody AUD [facility] AUDIOLOGY DEPT [place], [place] [address] (Wo rk) 11/04/2022 Office Visit Rheumatology Dante Freedman PA [facility] RHEUMATOLOGY [place], [place] [address] (Wo rk) documented as of [...] on filedocumented in this encounter Care Teams Noodle Maker Relationship Specialty Start Date End Date Violetta Sanford MD PCP - General 04/02/14 [address] [place] [address] documented as of this encounter
--- OUTSIDE RECORDS SUMMARY | 2022-06-16 12:25 | XMS_ITS | Encounter Summary ---
:1955 Author Organization [facility] Address [facility] [place] [address] Care Team Providers Name Role Phone Violetta Sanford MD Primary Care Provider Reason for Visit Reason Onset Date Comments Medication Refill 01/07/2021 Encounter Details Date Type Department Care Team Description 01/07/2021 Refill Endocrinology at [facility] Monica Jimenez PA [facility] [place] [place] [address] ENDOCRINOLOGY [phone] [place], [place] [address] (Wo rk) Social History Tobacco [...] Tyler Rojas MD [facility] Neurology [place], [place] [address] (Wo rk) 06/29/2022 Appointment Cardiology Violetta Sanford M D [address] [place], [place] [address] (Wo rk) 06/30/2022 Infusion Hematology and Oncology 07/14/2022 Infusion Hematology and Oncology 07/28/2022 Infusion Hematology and Oncology 08/11/2022 Infusion Hematology and Oncology 08/16/2022 Office Visit Audiology Mindy Moody AUD [facility] AUDIOLOGY [place], [place] [address] (Wo rk) 11/04/2022 Office Visit Rheumatology Dante Freedman PA [facility] RHEUMATOLOGY [place], [place] [address] (Wo rk) documented as of this encounter Visit Diagnoses Not on filedocumented in this encounter Care Teams Reading Coach Relationship Specialty Start Date End Date Violetta Sanford MD PCP - General 04/02/14 [address] [place] [address] documented as of this encounter
--- OUTSIDE RECORDS SUMMARY | 2022-06-16 12:25 | XMS_ITS | Encounter Summary ---
:1955 Author Organization [facility] [place] [address] Care Team Providers Name Role Phone Violetta Sanford MD Primary Care Provider Encounter Details Date Type Department Care Team Description 03/04/2021 Notes Only Hematology and Oncology at Carrie Hicks APRN [facility] Giovana tyler HEMATOLOGY/[place] [address] DEPT. [phone] [place], [place] [address] (Wo rk) Social History Tobacco Use Types Packs/Day Years Used Date Smoking Tobacco: Former Cigarettes 2 20 Quit : 01/19/1993 Smokeless Tobacco: Never Alcohol Use Standard Drinks/Week Comments Yes 0 (1 standard drink = 0.6 oz pure alcoho l) Once a year Sex Assigned at Date Recorded Not on file documented as of this encounter Progress Notes Crarie Trotter APRN - 03/04/2021 2:30 PM EDT [...] to get this done. He is at [facility] later this week to see endocrine - [...] MD [facility] Neurology [place], [place] [address] (Wo rk) 06/29/2022 Appointment Cardiology Violetta Sanford M D [address] [place], [place] [id number] (Wo rk) 06/30/2022 Infusion Hematology and Oncology 07/14/2022 Infusion Hematology and Oncology 07/28/2022 Infusion Hematology and Oncology 08/11/2022 Infusion Hematology and Oncology 08/16/2022 Office Visit Audiology Mindy Moody AUD [facility] AUDIOLOGY [place], [place] [address] (Wo rk) 11/04/2022 Office Visit Rheumatology Dante Freedman PA [facility] RHEUMATOLOGY [place], [place] [address] (Wo rk) documented as of this encounter Visit Diagnoses Not on filedocumented in this encounter Care Teams Demand Generation Manager Relationship Specialty Start Date End Date Violetta Sanford MD PCP - General 04/02/14 [address]ino [address] [place], [place] [id number] documented as of this encounter
--- OUTSIDE RECORDS SUMMARY | 2022-06-16 12:25 | XMS_ITS | Encounter Summary ---
:1955 Author Organization [place] [address] Care Team Providers Name Role Phone Violetta Sanford MD Primary Care Provider Encounter Details Date Type Department Care Team Description 09/18/2020 Telephone Cardiology at [facility] [place] [address] Social History Tobacco Use Types Packs/Day Years [...] Rojas MD [facility] Neurology [place], [place] [address] (Wo rk) 06/29/2022 Appointment Cardiology Violetta Sanford M D [facility] AL[address] [place] [address] (Wo rk) 06/30/2022 Infusion Hematology and Oncology 07/14/2022 Infusion Hematology and Oncology 07/28/2022 Infusion Hematology and Oncology 08/11/2022 Infusion Hematology and Oncology 08/16/2022 Office Visit Audiology Mindy Moody, WENDI [facility] AUDIOLOGY DEPT [place], [place] [address] (Wo rk) 11/04/2022 Office Visit Rheumatology Dante Freedman PA [facility] RHEUMATOLOGY [place], [place] [address] (Wo rk) documented as of this encounter Visit Diagnoses Not on filedocumented in this encounter Care Teams Computer Network Support Specialist Relationship Specialty Start Date End Date Violetta Sanford MD PCP - General 04/02/14 [address] [place] [address] documented as of this encounter
--- OUTSIDE RECORDS SUMMARY | 2022-06-16 12:25 | XMS_ITS | Encounter Summary ---
:1955 Author Organization [facility] [place] [address] Care Team Providers Name Role Phone Violetta Sanford MD Primary Care Provider Reason for Visit Reason Onset Date Comments Medication Refill 01/13/2021 Encounter Details Date Type Department Care Team Description 01/13/2021 Refill Endocrinology at [facility] C Robert Tran, [place] [address] Social History Tobacco Use Types Packs/Day Years [...] Rojas MD [facility] Neurology [place], [place] [address] (Wo rk) 06/29/2022 Appointment Cardiology Violetta Sanford M D [address] [place] [address] (Wo rk) 06/30/2022 Infusion Hematology and Oncology 07/14/2022 Infusion Hematology and Oncology 07/28/2022 Infusion Hematology and Oncology 08/11/2022 Infusion Hematology and Oncology 08/16/2022 Office Visit Audiology Mindy Moody AUD [facility] AUDIOLOGY DEPT [place], [place] [address] (Wo rk) 11/04/2022 Office Visit Rheumatology Dante Freedman PA [facility] RHEUMATOLOGY [place], [place] [address] (Wo rk) documented as of this encounter Visit Diagnoses Not on filedocumented in this encounter Care Teams Nuclear Medicine Supervisor Relationship Specialty Start Date End Date Violetta Sanford MD PCP - General 04/02/14 [address] [place] [address] documented as of this encounter
--- OUTSIDE RECORDS SUMMARY | 2022-06-16 12:25 | XMS_ITS | Encounter Summary ---
:1955 Author Organization [facility] [place] [address] Care Team Providers Name Role Phone Violetta Sanford MD Primary Care Provider Reason for Visit Reason Onset Date Comments Labs Only 11/19/2020 Lab Tracking Encounter Details Date Type Department Care Team Description 11/19/2020 Telephone Hematology/Oncology at [facility], Labs Only (Lab Tracking) [facility] Angelica Gilbert RN [address] [place] [phone] Social History Tobacco Use Types Packs/Day [...] 1:12 PM EDT LAB TRACKING Brett Dailey [id number] 1955 DIAGNOSIS: anemia d/t CKD stage IV, [...] Rojas MD [facility] Neurology [place], [place] [address] (Wo rk) 06/29/2022 Appointment Cardiology Violetta Sanford M D [facility] ALONDRA Miller TE [address] [place] [address] (Wo rk) 06/30/2022 Infusion Hematology and Oncology 07/14/2022 Infusion Hematology and Oncology 07/28/2022 Infusion Hematology and Oncology 08/11/2022 Infusion Hematology and Oncology 08/16/2022 Office Visit Audiology Mindy Moody AUD [facility] AUDIOLOGY DEPT [place], [place] [address] (Wo rk) 11/04/2022 Office Visit Rheumatology Dante Freedman PA [facility] RHEUMATOLOGY [place], [place] [address] (Wo rk) documented as of [...] Time / Laterality Volume Blood Carrie Trotter DYNAMICS AX TECHNICAL ARCHITECT HEMATOLOGY ORDERABLES documented in this encounter Visit Diagnoses Not on filedocumented in this encounter Care Teams Monitor Technician Relationship Specialty Start Date End Date Violetta Sanford MD PCP - General 04/02/14 [address]ino [address] [place] [address] documented as of this encounter
--- OUTSIDE RECORDS SUMMARY | 2022-06-16 12:25 | XMS_ITS | Encounter Summary ---
:1955 Author Organization [facility] [place] [address] Care Team Providers Name Role Phone Violetta Sanford MD Primary Care Provider Encounter Details Date Type Department Care Team Description 10/28/2020 Office Visit Rheumatology at [facility] Dante Freedman Osteoarthritis of multiple j oints, unspecified osteoarthritis type (Primary Dx); [facility] DA Gilbert Immunosuppression; [facility] H/O kidney transplant; [place] [address] Guillory of both hands [phone] [place] [address] Social History Tobacco Use Types Packs/Day Years [...] of that at night he applies a hbcy-jnu-qgszdis treatment of vitamin E oil. It is [...] diabetes COPD stage III, obesity, and bilateral peifk-zne-jwqx amputations with prostheses. He utilizes a scooter [...] daily. ??? POLYETHYLENE GLYCOL 1000,BULK, MISC by [facility].(Non-Drug; Combo Route) route as needed. ??? [DISCONTINUED] Baqsimi 3 mg/actuation [place], Non-Aerosol 3 mg by Nasal route as [...] Sensor (Dexcom G6 Sensor) Device by [facility].(Non-Drug; Combo Route) route. Sensor, lab instructor andtransmitter ??? calciTRIoL (Rocaltrol) 0.5 mcg Capsule [...] 3 ??? fluticasone propionate (FLONASE) 50 mcg/actuation [place], Suspension INSTILL 2 SPRAYS INTO EACH NOSTRIL ONCE A DAY NEEDED ??? triamcinolone (NASACORT or NASACORT OTC) 55 mcg Aerosol, [place] 2 sprays by Nasal route daily. (Patient [...] x 1/2 Needle 1 Device by [facility].(Non- Drug; Combo Route) route 3 times daily. [...] lungs daily. 1 ??? Miscellaneous Medical Supply [facility] 4 Devices by [facility].(Non-Drug; Combo Route) route daily. Rubber sheath for [...] by HENNA GAMINO JR at [facility] MAIN OR ??? PRO LAP, APPENDECTOMY 06/16/2013 LAPAROSCOPIC APPENDECTOMY performed by Angel Mccann MD at [facility] MAIN OR ??? US RENAL TRANSPLANT LEFT Left 06/26/2019 US Renal Transplant Left 06/26/2019 [facility] RAD ULTRASOUND Physical Examination: BP 138/55 [...] Tyler Rojas MD [facility] Neurology [place], [place] [address] (Oscar escobedo) 06/29/2022 Appointment Cardiology Violetta Sanford M D [address] [place] [address] (Oscar escobedo) 06/30/2022 Infusion Hematology and Oncology 07/14/2022 Infusion Hematology and Oncology 07/28/2022 Infusion Hematology and Oncology 08/11/2022 Infusion Hematology and Oncology 08/16/2022 Office Visit Audiology Mindy Moody, W[facility]I [facility] AUDIOLOGY DEPT [place], [place] [address] (Wo rk) 11/04/2022 Office Visit Rheumatology Dante Freedman PA [facility] RHEUMATOLOGY [place], [place] [address] (Wo rk) documented as of this encounter Visit Diagnoses Diagnosis Osteoarthritis of multiple joints, unspe cified osteoarthritis type - Primary Immunosuppression Unspecified disorder of immune mechanism H/O kidney transplant Kidney replaced by transplant Paresthesia of both hands documented in this encounter Care Teams Cell Tester Relationship Specialty Start Date End Date Violetta Sanford MD PCP - General 04/02/[address] [facility] [place] [address] documented as of this encounter
--- OUTSIDE RECORDS SUMMARY | 2022-06-16 12:25 | XMS_ITS | Encounter Summary ---
:1955 Author Organization [facility] [place] [address] Care Team Providers Name Role Phone Violetta Sanford MD Primary Care Provider Encounter Details Date Type Department Care Team Description 12/16/2020 External Results [place] [address] Social History Tobacco Use Types Packs/Day [...] Tyler Rojas MD [facility] Neurology [place], [place] [address] (Wo rk) 06/29/2022 Appointment Cardiology Violetta Sanford M D [address] [place] [address] [address] [place], [place] [address] (Oscar rk) 06/30/2022 Infusion Hematology and Oncology 07/14/2022 Infusion Hematology and Oncology 07/28/2022 Infusion Hematology and Oncology 08/11/2022 Infusion Hematology and Oncology 08/16/2022 Office Visit Audiology Mindy Moody AUD [facility] AUDIOLOGY DEPT [place], [place] [address] (Wo rk) 11/04/2022 Office Visit Rheumatology Dante Freedman PA [facility] RHEUMATOLOGY [place], [place] [address] (Wo rk) documented as of [...] filedocumented in this encounter Care Teams Systems Design Engineer Relationship Specialty Start Date End Date Violetta Sanford MD PCP - General 04/02/14 [address] [place], [place] [address] documented as of this encounter
--- OUTSIDE RECORDS SUMMARY | 2022-06-16 12:25 | XMS_ITS | Encounter Summary ---
:1955 Author Organization [facility] [place] [address] Care Team Providers Name Role Phone Violetta Sanford MD Primary Care Provider Reason for Visit Reason Onset Date Comments Medication Refill 10/28/2020 Encounter Details Date Type Department Care Team Description 10/28/2020 Refill Cardiology at [facility] J Luis Quispe MD Medication Refill [facility] [place] [address] CARDIOLOGY DEPT. [phone] [place], [place] [address] (Oscar rk) Social History Tobacco [...] Rojas MD [facility] Dr [place] [address] (Wo rk) 06/29/2022 Appointment Cardiology Violetta Sanford M D [address] [place], [place] [address] (Oscar rk) 06/30/2022 Infusion Hematology and Oncology 07/14/2022 Infusion Hematology and Oncology 07/28/2022 Infusion Hematology and Oncology 08/11/2022 Infusion Hematology and Oncology 08/16/2022 Office Visit Audiology Mindy Moody, WENDI [facility] AUDIOLOGY [place], [place] [address] (Wo rk) 11/04/2022 Office Visit Rheumatology Dante Freedman, PA [facility] RHEUMATOLOGY [place], [place] [address] (Wo rk) documented as of this encounter Visit Diagnoses Diagnosis Chronic atrial fibrillation Atrial fibrillation documented in this encounter Care Teams Report Clerk Relationship Specialty Start Date End Date Violetta Sanford MD PCP - General 04/02/14 [address] [place] [address] documented as of this encounter
--- OUTSIDE RECORDS SUMMARY | 2022-06-16 12:25 | XMS_ITS | Encounter Summary ---
:1955 Author Organization [facility] [place] [address] Care Team Providers Name Role Phone Violetta Sanford MD Primary Care Provider Encounter Details Date Type Department Care Team Description 03/04/2021 Orders Only Solid Organ Transplant Aria Khan H /O kidney transplant; at [facility] SHEILA Gilbert Immunosuppression; [facility] [place] [phone] Social History Tobacco Use Types Packs/Day [...] Tyler Rojas MD [facility] Neurology [place], [place] [phone] (Oscar escobedo) 06/29/2022 Appointment Cardiology Violetta Sanford M D [address] [place], [place] [id number] (Oscar escobedo) 06/30/2022 Infusion Hematology and Oncology 07/14/2022 Infusion Hematology and Oncology 07/28/2022 Infusion Hematology and Oncology 08/11/2022 Infusion Hematology and Oncology 08/16/2022 Office Visit Audiology Mindy Moody AUD [facility] AUDIOLOGY [place], [place] [address] (Wo rk) 11/04/2022 Office Visit Rheumatology Dante Freedman PA [facility] RHEUMATOLOGY [place], [place] [address] (Wo rk) documented as of this encounter Visit Diagnoses Diagnosis H/O kidney transplant Kidney replaced by transplant Immunosuppression Unspecified disorder of immune mechanism Vitamin D deficiency Unspecified vitamin D deficiency documented in this encounter Care Teams Skein Yarn Dyer Helper Relationship Specialty Start Date End Date Violetta Sanford MD PCP - General 04/02/14 [address] [place] [address] documented as of this encounter
--- OUTSIDE RECORDS SUMMARY | 2022-06-16 12:25 | XMS_ITS | Encounter Summary ---
:1955 Author Organization [facility] [place] [address] Care Team Providers Name Role Phone Violetta Sanford MD Primary Care Provider Reason for Visit Reason Onset Date Comments Labs Only 10/29/2020 Lab Tracking Encounter Details Date Type Department Care Team Description 10/29/2020 Telephone Hematology/Oncology at [facility], Labs Only (Lab Tracking) [facility] Angelica Gilbert RN [address] [place] [phone] Social History Tobacco Use Types Packs/Day [...] 1:09 PM EDT LAB TRACKING Brett Dailey [id number] 1955 DIAGNOSIS: anemia d/t CKD stage IV, [...] Rojas MD [facility] Neurology [place], [place] [phone] (Wo rk) 06/29/2022 Appointment Cardiology Violetta Sanford M D [address] [place] [address] (Wo rk) 06/30/2022 Infusion Hematology and Oncology 07/14/2022 Infusion Hematology and Oncology 07/28/2022 Infusion Hematology and Oncology 08/11/2022 Infusion Hematology and Oncology 08/16/2022 Office Visit Audiology Mindy Moody AUD [facility] AUDIOLOGY DEPT [place], [place] [address] (Wo rk) 11/04/2022 Office Visit Rheumatology Dante Freedman PA [facility] RHEUMATOLOGY [place], [place] [address] (Wo rk) documented as of [...] filedocumented in this encounter Care Teams Entry Manager Relationship Specialty Start Date End Date Violetta Sanford MD PCP - General 04/02/14 [address] [facility] 1 [place] [address] documented as of this encounter
--- OUTSIDE RECORDS SUMMARY | 2022-06-16 12:25 | XMS_ITS | Encounter Summary ---
:1955 Author Organization [facility] [place] [address] Care Team Providers Name Role Phone Violetta Sanford MD Primary Care Provider Reason for Visit Reason Onset Date Comments Labs Only 02/11/2021 Lab Tracking Encounter Details Date Type Department Care Team Description 02/11/2021 Telephone Hematology/Oncology at [facility], Labs Only (Lab Tracking) [facility] Angelica Gilbert RN [address] [place] [phone] Social History Tobacco Use Types Packs/Day [...] 1:44 PM EDT LAB TRACKING Brett Dailey [id number] 1955 DIAGNOSIS: anemia d/t CKD stage IV, h/o kidney transplant LABS: CBC every 3 weeks MEDICATIONS: Aranesp 300 mcg every 3 weeks if HGB <12 ASSESSMENT/PLAN: Lab sent to Carrie Trotter APRN for review. Will continue every 3 week CBC and Aranesp. Will go to lab at [facility] 1 hr prior to infusion appts here [...] Tyler Rojas MD [facility] Neurology [place], [place] [phone] (Wo rk) 06/29/2022 Appointment Cardiology Violetta Sanford M D [facility] [address] [place] [address] (Wo rk) 06/30/2022 Infusion Hematology and Oncology 07/14/2022 Infusion Hematology and Oncology 07/28/2022 Infusion Hematology and Oncology 08/11/2022 Infusion Hematology and Oncology 08/16/2022 Office Visit Audiology Mindy Moody AUD [facility] AUDIOLOGY DEPT [place], [place] [address] (Wo rk) 11/04/2022 Office Visit Rheumatology Dante Freedman PA [facility] RHEUMATOLOGY [place], [place] [address] (Wo rk) documented as of [...] filedocumented in this encounter Care Teams Wire Steward Relationship Specialty Start Date End Date Violetta Sanford MD PCP - General 04/02/14 [address] [place] [address] documented as of this encounter
--- OUTSIDE RECORDS SUMMARY | 2022-06-16 12:25 | XMS_ITS | Encounter Summary ---
:1955 Author Organization [facility] Address [facility] [address] [place] [address] Care Team Providers Name Role Phone Violetta Sanford MD Primary Care Provider Encounter Details Date Type Department Care Team Description 10/28/2020 Office Visit Endocrinology at [facility] Monica Jimenez Type 2 diabetes [facility] DA Agosto mellitus with [facility], [place] [phone] long-term current use [phone] ENDOCRINOLOGY of insulin [place], [place] [address] Social History Tobacco Use Types [...] 2 here for follow up to the [facility] endocrine clinic for diabetes services. Past [...] since last visit he has worked with general pediatrician Khloe Bell(at [facility]). She advised decreasing his Levemir [...] Monica Contreras PA-C Diabetes education: Met with general pediatrician/wrapper hand? yes History of Diabetes Related Complications and Prevention Eyes: Last Eye Exam:July 2020 History of Diabetes Retinopathy: yes Dental Care in last 6 months: no, has dentures top and bottom Kidney function: s/p renal transplant Last urine microalbumin: 2011 Last creatinine: 09/01/20--2.54 mg/dL On IFTIKHAR/ARB: yes, lostartan 25mg Car Supplier: yes Cardio: Aspirin: yes Last cholesterol: 09/01/20--total [...] with . Has 3 grown sons. 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 Lives in [place], [place], and has lived there his whole [...] daily. Yes POLYETHYLENE GLYCOL 1000,BULK, MISC by Mis.(Non-Drug; Combo Route) route as needed. Yes Prograf [...] daily. Yes fluticasone propionate (FLONASE) 50 mcg/actuation [place], Suspension INSTILL 2 SPRAYS INTO EACH NOSTRIL [...] gauge x 1/2 Needle 1 Device by [facility]Non-Drug; Combo Route) route 3times daily. Yes atorvastatin [...] Reported on 08/06/2016 Yes Miscellaneous Medical Supply [facility] 4 Devices by [facility].(Non-Drug; Combo Route) route daily. Rubber sheath for [...] by mouth daily. Yes Baqsimi 3 mg/actuation [place], Non-Aerosol 3 mg by Nasal route as [...] Blood-Glucose Sensor (Dexcom G6 Sensor) Device by [facility].(Non-Drug; Combo Route) route. Sensor, derrick car operator andtransmitter calciTRIoL (Rocaltrol) 0.5 mcg Capsule Take 1 capsule by mouth daily. Patient not taking: Reported on 10/28/2020 triamcinolone (NASACORT or NASACORT OTC) 55 mcg Aerosol, [place] 2 sprays by Nasal route daily. Patient [...] and that both his transplant surgeon and ladle filler are aware of his use. Levemir is [...] This was a 45 minute visit spent [id number] with patient discussing diabetes management and providing education including but not limited to information in history and plan. An additional 15 minutes was spent reviewing previous notes and labs, ordering labs and medications & completing documentation. I have reviewed the plan outlined above with the patient and the patient has verbalized understanding. Monica Contreras PA-C Department of Endocrinology [facility] documented in this encounter Plan of Treatment Upcoming Encounters Date Type Specialty Care Team Description 06/16/2022 Infusion Hematology and Oncology 06/21/2022 Office Visit Neurology Tyler Rojas MD [facility] Neurology [place], [place] [phone] (Oscar escobedo) 06/29/2022 Appointment Cardiology Violetta Sanford M D [address] [place] [address] (Oscar escobedo) 06/30/2022 Infusion Hematology and Oncology 07/14/2022 Infusion Hematology and Oncology 07/28/2022 Infusion Hematology and Oncology 08/11/2022 Infusion Hematology and Oncology 08/16/2022 Office Visit Audiology Mindy Moody AUD [facility] AUDIOLOGY DEPT [place], [place] [address] (Oscar escobedo) 11/04/2022 Office Visit Rheumatology Dante Freedman PA [facility] [address] [place] [address] (Oscar rk) documented as of this encounter Results LDL Cholesterol, Direct (03/06/2021 12:20 PM EDT) P athologist Signature LDL Chol 45 mg/dL [facility] LABORATORY Comment: Lowest Risk: <100 mg/dL Lower Risk: 100-129 mg/dL Borderline High Risk: 130-159 mg/dL High Risk: 160-189 mg/dL Very High Risk: >ul=079 mg/dL Specimen Anatomical Collection Method Collection Time Receive d Time (Source) Location / / Volume Laterality Blood 03/06/2021 12:20 03/06/2021 PM EDT 12:25 PM EDT Resulting Agency Comment Spec In Lab Donell Hernandez MD CHEMISTRY ORDERABLES Performing Organization Address City/State/[place] [address] (ABNORMAL) Hemoglobin A1c (10/28/2020 11:50 AM EDT) Analysis Performed At Patho logist Time Signature Hemoglobin A1C 6.0 (H) 4.3 - 5.6 [facility] [...] 1, S67-74 Est Avg Gluc 125 mg/dL [facility] [...] with hemoglobinopathies. Additional resources are available on [facility] ADA website. Scooby MALDONADO, Nba J, Sydnee R, et al. ??Tr anslating the A1C assay into estimated average glucose values. ??Diabetes Care 2008:31(8):5106-2824. Specimen Anatomical Collection Method Collection Time Receive d Time (Source) Location / / Volume Laterality Blood specimen 10/28/2020 11:50 1 (specimen) AM EDT 12:00 PM EDT Resulting Agency Comment Spec In Lab Donell Hernandez MD CHEMISTRY ORDERABLES Performing Organization Address City/State/[place] [address] documented in this encounter Visit Diagnoses Diagnosis Type 2 diabetes mellitus with hyperglyce maki, with long-term current use of insulin documented in this encounter Care Teams Gold Blower Relationship Specialty Start Date End Date Violetta Sanford MD PCP - General 04/02/14 [address] [place] [address] documented as of this encounter
--- OUTSIDE RECORDS SUMMARY | 2022-06-16 12:25 | XMS_ITS | Encounter Summary ---
:1955 Author Organization [facility] Address [address] [place] [address] Care Team Providers Name Role Phone Violetta Sanford MD Primary Care Provider Reason for Visit Reason Onset Date Comments Medication Refill 03/05/2021 Encounter Details Date Type Department Care Team Description 03/05/2021 Refill Solid Organ Alejo Garnett H/O mesfin y transplant; Transplant at [facility] MD Thang Vitamin D deficiency; [facility] Nadir g term current use of immunosuppressive drug Drive [place] [address] [place] [address] [phone] Social History Tobacco Use Types Packs/Day Years [...] Rojas MD [facility] Neurology [place], [place] [phone] (Wo rk) 06/29/2022 Appointment Cardiology Violetta Sanford M D [address] [place] [address] [address] [place], [place] [id number] (Wo rk) 06/30/2022 Infusion Hematology and Oncology 07/14/2022 Infusion Hematology and Oncology 07/28/2022 Infusion Hematology and Oncology 08/11/2022 Infusion Hematology and Oncology 08/16/2022 Office Visit Audiology Mindy Moody AUD [facility] AUDIOLOGY DEPT [place], [place] [address] (Wo rk) 11/04/2022 Office Visit Rheumatology Dante Freedman PA [facility] ER RHEUMATOLOGY [place], [place] [address] (Wo rk) documented as of this encounter Results Tacrolimus level (03/06/2021 12:20 PM EDT) P athologist Signature Tacrolimus Lvl 2.8 ng/mL [facility] Comment: [...] Organization Address City/State/[place] [address] Lavender Tube HOLD (03/06/2021 12:20 PM EDT) Patholo gist Method Time Signature Lavender Hold Sample in [facility] LABORATORY Specimen Anatomical Collection Method Collection Time Receive d Time (Source) Location / / Volume Laterality Blood 03/06/2021 12:20 03/06/2021 PM EDT 12:25 PM EDT Alejo Garnett MD HEMATOLOGY ORDERABLES Performing Organization Address City/State/ZIP Code Phon e Number [address] Gold Tube HOLD (03/06/2021 12:20 PM EDT) athologist Signature Gold Hold Sample in [facility] lab. [facility] Specimen Anatomical Collection Method Collection Time Receive d Time (Source) Location / / Volume Laterality Blood 03/06/2021 12:20 03/06/2021 PM EDT 12:25 PM EDT Alejo Garnett MD CHEMISTRY ORDERABLES Performing Organization Address City/[facility]/ZIP Code Phon e Number [address] 1,25-dihydroxycholecalciferol (03/06/2021 12:20 PM EDT) athologist Signature Vit D 1,25 18 18 - 64 [facility] pg/mL [facility] Comment: ADDITIONAL INFORMATIO N This test was developed and its performa nce characteristics determined by [facility] in a manner co nsistent with CLIA requirements. This test has not been carlos ared or approved by the U.S. Food and Drug Administration. Test Performed by: [facility] [address] [place] [address] Weld Engineer: Van White M.D. Ph. D.; CLIA# [id number] Specimen Anatomical Collection Method Collection Time Receive d Time (Source) Location / / Volume Laterality Blood 03/06/2021 12:20 03/06/2021 2:38 PM EDT PM EDT Resulting Agency Comment Spec In Lab Alejo Garnett MD CHEMISTRY ORDERABLES Performing Organization Address City/State/ZIP Code Phon e Number [address] Vitamin D, 25-Hydroxy (03/06/2021 12:20 PM EDT) Patholo gist Method Time Signature 25-OH Vit D 36 21 - 100 [facility] MELI Total ng/mL [facility] 25-OH Vit D Sufficient [facility] LABORATORY Specimen Anatomical Collection Method Collection Time Receive d Time (Source) Location / / Volume Laterality Blood 03/06/2021 12:20 03/06/2021 PM EDT 12:25 PM EDT Resulting Agency Comment Spec In Lab Alejo Garnett MD CHEMISTRY ORDERABLES Performing Organization Address City/State/ZIP Code Phon e Number [address] PTH (03/06/2021 12:20 PM EDT) P athologist Signature PTH 21 15 - 65 [facility] pg/mL [facility] Specimen Anatomical Collection Method Collection Time Receive d Time (Source) Location / / Volume Laterality Blood 03/06/2021 12:20 03/06/2021 PM EDT 12:25 PM EDT Resulting Agency Comment Spec In Lab Alejo Garnett MD CHEMISTRY ORDERABLES Performing Organization Address City/State/ZIP Code Phon e Number [address] Uric acid (03/06/2021 12:20 PM EDT) P athologist Signature Uric Acid 7.5 3.5 - 8.5 [facility] mg/dL [facility] Specimen Anatomical Collection Method Collection Time Receive d Time (Source) Location / / Volume Laterality Blood 03/06/2021 12:20 03/06/2021 PM EDT 12:25 PM EDT Resulting Agency Comment Spec In Lab Alejo Garnett MD CHEMISTRY ORDERABLES Performing Organization Address City/State/ZIP Code Phon e Number [address] Magnesium (03/06/2021 12:20 PM EDT) P athologist Signature Magnesium 0.69 0.69 - 1.07 [facility] mmol/L [facility] Specimen Anatomical Collection Method Collection Time Receive d Time (Source) Location / / Volume Laterality Blood 03/06/2021 12:20 03/06/2021 PM EDT 12:25 PM EDT Resulting Agency Comment Spec In Lab Alejo Garnett MD CHEMISTRY ORDERABLES Performing Organization Address City/State/ZIP Code Phon e Number [address] Phosphorus (03/06/2021 12:20 PM EDT) athologist Signature Phosphorus 3.3 2.5 - 4.5 [facility] mg/dL [facility] Specimen Anatomical Collection Method Collection Time Receive d Time (Source) Location / / Volume Laterality Blood 03/06/2021 12:20 03/06/2021 PM EDT 12:25 PM EDT Resulting Agency Comment Spec In Lab Alejo Garnett MD CHEMISTRY ORDERABLES Performing Organization Address City/[facility]/ZIP Code Phon e Number [address] Lipid Panel (Reflex Direct LDL) (03/06/2021 12:20 PM EDT) athologist Signature Chol, Total 92 mg/dL [facility] Comment: Lower Risk: <200 mg/dL Average Risk: 200-239 mg/dL Higher Risk: >cw=937 mg/dL Triglycerides 203 mg/dL [facility] Comment: Average Risk/Lower Risk: <150 mg/dL Borderline High Risk: 150-199 mg/dL High Risk: 200-499 mg/dL Very High Risk: >ir=353 mg/dL HDL 21 mg/dL [facility] Comment: Males: ?? Higher Risk: <40 mg/dL Females: ?? Higher Risk: <50 mg/dL LDL Cholesterol 30 mg/dL [facility] Comment: Lowest Risk: <100 mg/dL Lower Risk: 100-129 mg/dL Borderline High Risk: 130-159 mg/dL High Risk: 160-189 mg/dL Very High Risk: >lt=196 mg/dL Chol/HDL Ratio 4.4 ratio [facility] Lipid Interpretation See Note [facility] Comment: Lipid management should be guided by a p atient? s ASCVD risk, goals and preferences. ACC/AHA Guidelines recommend high intens ity statin if clinical ASCVD or LDL greater than or equal to 190 mg/dL. http://[employer]/CKA-RFC-Iibglfoln Adults aged 40-75 with LDL 70-189 mg/dL should have their 10 year ASCVD risk estimated with the ACC/AHA ASCVD risk es timator http://tools.acc.org/UPWPH-Vssu-Wygzvrpj r/ Statin should be discussed if risk [...] Organization Address City/State/[place] [address] (ABNORMAL) Comprehensive metabolic panel (non-fasting) (03/06/2021 12:20 PM EDT) P athologist Signature Glucose Lvl 197 65 - 199 [facility] mg/dL [facility] Comment: Diabetes: >=200 mg/dL plus symp toms BUN 40 (H) 10 - 20 mg/dL [facility] Creatinine 3.47 (H) 0.80 - 1.50 mg/dL [facility] Sodium 139 135 - 145 mmol/L [facility] Potassium 4.8 3.5 - 5.0 mmol/L [facility] Comment: Please note: ??Patients with WBC >100,00 0 may have falsely elevated Potassium levels. ??For accurate Potassium quantif ication in these patients send serum separator tube (gold top) for subsequent determinations. ??Contact the Clinical Chemistry Laboratory if there are any qu estions. Chloride 106 98 - 107 mmol/L [facility] CO2 22 22 - 31 mmol/L [facility] Anion Gap 11 5 - 15 mmol/L [facility] Calcium 10.1 8.5 - 10.5 mg/dL [facility] Total Protein 7.4 6.1 - 8.0 gm/dL [facility] Albumin 3.6 3.2 - 5.2 gm/dL [facility] AST 12 0 - 39 unit/L [facility] ALT 9 0 - 55 unit/L [facility] Alk Phos 112 40 - 130 unit/L [facility] Total Bilirubin 0.3 0.2 - 1.3 mg/dL [facility] Estimated GFR 17 (L) >=60 mL/min/1.73 m?? [facility] Comment: This patient? s [...] Organization Address City/State/[place] [address] Reticulocyte Count (03/06/2021 12:20 PM EDT) athologist Signature Retic Ct % 2.6 0.7 - 2.6 [facility]OR[facility] Retic Ct Abs 0.080 0.030 - [facility] 0.120 [facility] x10(6)/[facility] LABORATORY Immature Retic% 14.1 0.0 - 15.6 [facility] Reticulated Hgb 32.5 31.3 - [facility].2 pg [facility] Specimen Anatomical Collection Method Collection Time Receive d Time (Source) Location / / Volume Laterality Blood 03/06/2021 12:20 03/06/2021 PM EDT 12:25 PM EDT Resulting Agency Comment Spec In Lab Alejo Garnett MD HEMATOLOGY ORDERABLES Performing Organization Address City/State/[place] [address] (ABNORMAL) Hemoglobin A1c (03/06/2021 12:20 PM EDT) Analysis Performed At Patho logist Time Signature Hemoglobin A1C 7.4 (H) 4.3 - 5.6 [facility] [...] 36: Suppl. 1, S67-91 Est Avg Gluc 166 mg/dL [facility] Comment: eAG equivalents for HbA1c percentages: HbA1c(%) ?eAG(mg/dL) 6.0 ?126 6.5 ?140 7.0 ?154 7.5 ?169 8.0 ?183 8.5 ?197 9.0 ?212 9.5 ?226 10.0 ? 240 Limitations: The eAG calculation has not been validated on women, individuals below 18 years old and above 70 years old, and individuals with hemoglobinopathies. Additional resources are available on [facility] website. Scooby MALDONADO, Nba J, Sydnee Swain, et al. ??Tr anslating the A1C assay into estimated average glucose values. ??Diabetes Care 2008:31(8):5723-3643. Specimen Anatomical Collection Method Collection Time Receive d Time (Source) Location / / Volume Laterality Blood 03/06/2021 12:20 03/06/2021 PM EDT 12:25 PM EDT Resulting Agency Comment Spec In Lab Alejo Garnett MD CHEMISTRY ORDERABLES Performing Organization Address City/[facility]/ZIP Code Phon e Number [address] Phosphorus, urine, random (03/06/2021 12:12 PM EDT) P athologist Signature U Phosphorus 29.3 mg/dL [facility] Specimen Anatomical Collection Method Collection Time Receive d Time (Source) Location / / Volume Laterality Urine 03/06/2021 12:12 03/06/2021 PM EDT 12:28 PM EDT Resulting Agency Comment Spec In Lab Alejo Garnett MD URINE ORDERABLES Performing Organization Address City/[facility] Phon e Number [address] Magnesium, urine, random (03/06/2021 12:12 PM EDT) P athologist Signature U Mg Ran 1.71 mmol/L [facility] Specimen Anatomical Collection Method Collection Time Receive d Time (Source) Location / / Volume Laterality Urine 03/06/2021 12:12 03/06/2021 PM EDT 12:28 PM EDT Resulting Agency Comment Spec In Lab Alejo Garnett MD URINE ORDERABLES Performing Organization Address City/[facility]/ZIP Code Phon e Number [address] Calcium Creatinine Ratio, random urine (03/06/2021 12:12 PM EDT) P athologist Signature U Calcium 3.6 mg/dL [facility] U Creatinine 62 mg/dL [facility] Ca/Cre Ratio 0.06 ratio [facility] Specimen Anatomical Collection Method Collection Time Receive d Time (Source) Location / / Volume Laterality Urine 03/06/2021 12:12 03/06/2021 PM EDT 12:28 PM EDT Resulting Agency Comment Spec In Lab Alejo Garnett MD URINE ORDERABLES Performing Organization Address City/[facility]/[place] [address] (ABNORMAL) Protein/Creatinine Ratio, urine (03/06/2021 12:12 PM EDT) P athologist Signature U Creatinine 62 mg/dL [facility] U Protein Ran 70 (H) 0 - 12 [facility] mg/dL [facility] Prot/Cre Ratio 1.1 ratio [facility] Specimen Anatomical Collection Method Collection Time Receive d Time (Source) Location / / Volume Laterality Urine 03/06/2021 12:12 03/06/2021 PM EDT 12:28 PM EDT Resulting Agency Comment Spec In Lab Alejo Garnett MD URINE ORDERABLES Performing Organization Address City/[facility]/ZIP Code Phon e Number [address] BKV Quant Urine (03/06/2021 12:12 PM EDT) Component Value Ref Test Analysis Performed At [facility] Range Method Time Signature BKV Urine Not Detected [facility] LABORATORY BKV Urine BK Virus Urine Result Interpretation [facility] Result: BK Virus not detected HOSPITAL Specimen type: urine LABORATOR Y Assay Range: 2.80-7.80 log copies/mL (6.28x10^2 - 6.28x10^7 copies/mL) Methods: Quantitative real-time polymerase chain react ion (PCR) of viral DNA isolated from plasma was performed using [employer] BKV analyte-specific reagents and the Tickade System that automates both nucleic a alonzo [...] and Advanc ed Technology (CGAT) Laboratory at [facility]. It has not [...] Organization Address City/State/[place] [address] (ABNORMAL) Urinalysis with reflex Culture (03/06/2021 12:12 PM EDT) [facility] Method Time Signature Glucose UA Negative Negative [facility] mg/dL [facility] Protein UA 100 (A) Negative [facility] mg/dL [facility] Bilirubin UA Negative Negative [facility] mg/dL [facility] Comment: Clinical correlation required for [...] HOSPITAL LABORATORY Blood UA Negative Negative mg/dL [facility] Ketones UA Negative Negative mg/dL [facility] Nitrite UA Negative Negative [facility]OR[facility]ORY Leukocytes UA Negative Negative [facility] LABORATORY Appearance UA Clear Clear [facility] Spec [place] UA 1.013 1.005 - 1.030 [facility] Color UA Yellow Yellow [facility] Culture Reflexed No [facility] Specimen Anatomical Collection Method Collection Time Receive d Time (Source) Location / / Volume Laterality Clean Catch 03/06/2021 12:12 03/06/2021 Urine PM EDT 12:26 PM EDT Resulting Agency Comment Spec In Lab Alejo Garnett MD URINE ORDERABLES Performing Organization Address City/State/[place] [address] documented in this encounter Visit Diagnoses Diagnosis H/O kidney transplant Kidney replaced by transplant Vitamin D deficiency Unspecified vitamin D deficiency 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
--- OUTSIDE RECORDS SUMMARY | 2022-06-16 12:25 | XMS_ITS | Encounter Summary ---
:1955 Author Organization [facility] [place] [address] Care Team Providers Name Role Phone Violetta Sanford MD Primary Care Provider Reason for Visit Reason Comments Injections Aranesp Injection Treatment/Therapy Plan Authorization (Routine) - Authorized Specialty Diagnoses / Procedures Referred By Contact Refer red To Contact Hematology and Diagnoses CKD (chronic kidney disease) stage 4, GFR 15-29 ml/min Nicky Baez Elizabeth Oncology Procedures MD James [facility] MD [address] HEMATOLOGY/ONCOLOGY [place], [place] DEPT. [id number] [place] [id number] Referral ID Status Reason Start Date Expiration Date Visits V isits Requested Authorized [id number] Authorized 10/08/2020 07/24/2023 99 99 Encounter Details Date Type Department Care Team Description 01/21/2021 Infusion Hematology Oncology at [facility] of chronic renal [facility] failure, stage 4 (severe) [address] [place], [place] [phone] Social History Tobacco Use [...] Tyler Rojas MD [facility] Neurology [place], [place] [phone] (Oscar escobedo) 06/29/2022 Appointment Cardiology Violetta Sanford M D [address] [place] [address] (Oscar escobedo) 06/30/2022 Infusion Hematology and Oncology 07/14/2022 Infusion Hematology and Oncology 07/28/2022 Infusion Hematology and Oncology 08/11/2022 Infusion Hematology and Oncology 08/16/2022 Office Visit Audiology Mindy Moody AUD [facility] AUDIOLOGY DEPT [place], [place] [address] (Wo rk) 11/04/2022 Office Visit Rheumatology Dante Freedman PA [facility] RHEUMATOLOGY [place], [place] [address] (Wo rk) documented as of [...] (CKD) documented in this encounter Care Teams Collector Of Aquarium Specimens Relationship Specialty Start Date End Date Violetta Sanford MD PCP - General 04/02/14 [address] [place] [address] documented as of this encounter
--- OUTSIDE RECORDS SUMMARY | 2022-06-16 12:25 | XMS_ITS | Encounter Summary ---
:1955 Author Organization [facility] [place] [address] Care Team Providers Name Role Phone Violetta Sanford MD Primary Care Provider Encounter Details Date Type Department Care Team Description 11/17/2020 Telephone [place] [facility] [place] [address] Social History Tobacco Use Types Packs/Day Years [...] MD [facility] Neurology [place], [place] [phone] (Wo rk) 06/29/2022 Appointment Cardiology Violetta Sanford M D [facility] [address] [place] [address] (Wo rk) 06/30/2022 Infusion Hematology and Oncology 07/14/2022 Infusion Hematology and Oncology 07/28/2022 Infusion Hematology and Oncology 08/11/2022 Infusion Hematology and Oncology 08/16/2022 Office Visit Audiology Mindy Moody, [facility] AUDIOLOGY DEPT [place], [place] [address] (Wo rk) 11/04/2022 Office Visit Rheumatology Dante Freedman PA [facility] RHEUMATOLOGY [place], [place] [address] (Wo rk) documented as of this encounter Visit Diagnoses Not on filedocumented in this encounter Care Teams Prepress Supervisor Relationship Specialty Start Date End Date Violetta Sanford MD PCP - General 04/02/14 [address] [place] [address] documented as of this encounter
--- OUTSIDE RECORDS SUMMARY | 2022-06-16 12:25 | XMS_ITS | Encounter Summary ---
:1955 Author Organization [facility] [address] Care Team Providers Name Role Phone Violetta Sanford MD Primary Care Provider Reason for Visit Reason Onset Date Comments Medication Refill 02/16/2021 Encounter Details Date Type Department Care Team Description 02/16/2021 Refill Cardiology at [facility] J Luis Quispe MD Medication Refill [facility] [place] [address] CARDIOLOGY DEPT. [phone] [place] [id number] (Wo rk) Social History Tobacco Use Types [...] 12:07 PM EDT Received Faxed request from [facility] on behalf of patient requesting [...] Rojas MD [facility] Neurology [place], [place] [phone] (Wo rk) 06/29/2022 Appointment Cardiology Violetta Sanford M D [address] [place] [address] (Wo rk) 06/30/2022 Infusion Hematology and Oncology 07/14/2022 Infusion Hematology and Oncology 07/28/2022 Infusion Hematology and Oncology 08/11/2022 Infusion Hematology and Oncology 08/16/2022 Office Visit Audiology Mindy Moody AUD [facility] AUDIOLOGY [place], [place] [address] (Wo rk) 11/04/2022 Office Visit Rheumatology Dante Freedman PA [facility] RHEUMATOLOGY [place], [place] [address] (Wo rk) documented as of this encounter Visit Diagnoses Diagnosis Chronic atrial fibrillation Atrial fibrillation documented in this encounter Care Teams Wood Fuel Pelletizer Relationship Specialty Start Date End Date Violetta Sanford MD PCP - General 04/02/14 [address] [place] [address] documented as of this encounter
--- OUTSIDE RECORDS SUMMARY | 2022-06-16 12:25 | XMS_ITS | Encounter Summary ---
:1955 Author Organization [facility] [place] [address] Care Team Providers Name Role Phone Violetta Sanford MD Primary Care Provider Reason for Visit Reason Onset Date Comments Appointment 10/28/2020 Encounter Details Date Type Department Care Team Description 10/28/2020 Telephone Endocrinology at [facility] C Alice Sawyer, Appointment [facility] [place] [address] [facility] [phone] ENDOCRINOLOGY [place] [id number] (Wo rk) Social History Tobacco Use Types [...] to discuss changing 1pm appt to a [facility] or keep as an in person visit with Monica instead. documented in this encounter Plan of Treatment Upcoming Encounters Date Type Specialty Care Team Description 06/16/2022 Infusion Hematology and Oncology 06/21/2022 Office Visit Neurology Tyler Rojas MD [facility] [address] [place] [phone] (Wo rk) 06/29/2022 Appointment Cardiology Violetta Sanford M D [address] [place], [place] [address] (Wo rk) 06/30/2022 Infusion Hematology and Oncology 07/14/2022 Infusion Hematology and Oncology 07/28/2022 Infusion Hematology and Oncology 08/11/2022 Infusion Hematology and Oncology 08/16/2022 Office Visit Audiology Mindy Moody AUD [facility] AUDIOLOGY DEPT [place], [place] [address] (Wo rk) 11/04/2022 Office Visit Rheumatology Dante Freedman PA [facility] RHEUMATOLOGY [place], [place] [address] (Wo rk) documented as of this encounter Visit Diagnoses Not on filedocumented in this encounter Care Teams Operations Coordinator Relationship Specialty Start Date End Date Violetta Sanford MD PCP - General 04/02/14 [address] [place], [place] [address] documented as of this encounter
--- OUTSIDE RECORDS SUMMARY | 2022-06-16 12:25 | XMS_ITS | Encounter Summary ---
:1955 Author Organization [facility] [place] [address] Care Team Providers Name Role Phone Violetta Sanford MD Primary Care Provider Reason for Visit Reason Onset Date Comments Labs Only 12/31/2020 Lab Tracking Encounter Details Date Type Department Care Team Description 12/31/2020 Telephone Hematology/Oncology at [facility], Labs Only (Lab Tracking) [facility] Angelica Gilbert RN [address] [place] [phone] Social History Tobacco Use Types Packs/Day [...] 11:47 AM EDT LAB TRACKING Brett Dailey [id number] DIAGNOSIS: anemia d/t CKD stage IV, h/o kidney transplant LABS: CBC every 3 weeks MEDICATIONS: Aranesp 300 mcg every 3 weeks if HGB <12 ASSESSMENT/PLAN: Pt seen by Carrie Kaur APRN today. Will continue every 3 week CBC and Aranesp. [facility] lab [facility] [...] Rojas MD [facility] Neurology [place], [place] [phone] (Wo rk) 06/29/2022 Appointment Cardiology Violetta Sanford M D [address] [place] [address] (Wo rk) 06/30/2022 Infusion Hematology and Oncology 07/14/2022 Infusion Hematology and Oncology 07/28/2022 Infusion Hematology and Oncology 08/11/2022 Infusion Hematology and Oncology 08/16/2022 Office Visit Audiology Mindy Moody AUD [facility] AUDIOLOGY DEPT [place], [place] [address] (Wo rk) 11/04/2022 Office Visit Rheumatology Dante Freedman PA [facility] RHEUMATOLOGY [place], [place] [address] (Wo rk) documented as of [...] Time / Laterality Volume Blood Carrie Trotter CAP PARTS CUTTER CHEMISTRY ORDERABLES CBC (with Diff) (12/31/2020) P athologist Signature WBC 8.00 Hemoglobin 9.8 Hematocrit 30.8 MCV 95.1 Platelets 194 Neutr Abs (ANC) 5.21 Specimen (Source) Anatomical Location Collection Method / Collectio n Time Received Time / Laterality Volume Blood Carrie Trotter APRN HEMATOLOGY ORDERABLES documented in this encounter Visit Diagnoses Not on filedocumented in this encounter Care Teams Hydraulic Lift Driver Relationship Specialty Start Date End Date Violetta Sanford MD PCP - General 04/02/14 [address] [place] [address] documented as of this encounter
--- OUTSIDE RECORDS SUMMARY | 2022-06-16 12:25 | XMS_ITS | Encounter Summary ---
:1955 Author Organization [facility] [place] [address] Care Team Providers Name Role Phone Violetta Sanford MD Primary Care Provider Reason for Visit Reason Comments Injections Aranesp Treatment/Therapy Plan Authorization (Routine) - Authorized Specialty Diagnoses / Procedures Referred By Contact Refer red To Contact Hematology and Diagnoses CKD (chronic kidney disease) stage 4, GFR 15-29 ml/min Nicky Baez Elizabeth Oncology Procedures MD James NUR MD [address] HEMATOLOGY/ONCOLOGY [place], [place] DEPT. [id number] [place] [address] Referral ID Status Reason Start Date Expiration Date Visits V isits Requested Authorized [id number] Authorized 10/08/2020 07/24/2023 99 99 Encounter Details Date Type Department Care Team Description 02/11/2021 Infusion Hematology Oncology at [facility] of chronic renal [facility] failure, stage 4 (severe) [address] [place], [place] [phone] Social History Tobacco Use [...] for drug name, route, and dosage by Suki Lerma RN and pharmacist on-site. REACTIONS (DESCRIPTION, [...] Tyler Rojas MD [facility] Neurology [place], [place] [phone] (Oscar escobedo) 06/29/2022 Appointment Cardiology Violetta Sanford M D [address] [address] (Oscar escobedo) 06/30/2022 Infusion Hematology and Oncology 07/14/2022 Infusion Hematology and Oncology 07/28/2022 Infusion Hematology and Oncology 08/11/2022 Infusion Hematology and Oncology 08/16/2022 Office Visit Audiology Mindy Moody AUD [facility] AUDIOLOGY DEPT [place], [place] [address] (Wo rk) 11/04/2022 Office Visit Rheumatology Dante Freedman, DA [facility] RHEUMATOLOGY [place], [place] [address] (Wo rk) documented as of [...] documented in this encounter Care Teams Terminal Supervisor Relationship Specialty Start Date End Date Violetta Sanford MD PCP - General 04/02/14 [address] [place] [address] documented as of this encounter
--- OUTSIDE RECORDS SUMMARY | 2022-06-16 12:25 | XMS_ITS | Encounter Summary ---
:1955 Author Organization [facility] Address [facility] [place] [address] Care Team Providers Name Role Phone Violetta Sanford MD Primary Care Provider Reason for Referral Consultation (Routine) - Closed Specialty Diagnoses / Procedures Referred By Contact Refer red To Contact Otolaryngology Diagnoses Hearing loss of left ear, unspecified hearing loss type Donell Hernandez MD [facility] [address] [place] [address] [place] [address] [place] [address] Referral ID Status Reason Start Date Expiration Date Visits V isits Requested Authorized [id number] Closed Consult, 03/06/2021 03/06/2022 1 1 Test & Treat Encounter Details Date Type Department Care Team Description 03/06/2021 Office Visit Endocrinology at [facility] Donell Hardin, Hearing loss of left ear, un specified hearing loss type; [facility] Type 2 diabetes mellitus with hyperglyce maki, with long-term current use of insulin; Drive [facility] CKD (chronic kidney disease) stage 4, GFR 15-29 ml/min; [place] [address] S/P bilateral BKA (below knee amputation ) [phone] ENDOCRINOLOGY DEPT. 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 house operator helper:no special shoes:no flu shot :yes pneumovax: 2011 [...] Rojas MD [facility] Neurology [place], [place] [phone] (Wo rk) 06/29/2022 Appointment Cardiology Violetta Sanford M D [address] [place] [phone] (Wo rk) 06/30/2022 Infusion Hematology and Oncology 07/14/2022 Infusion Hematology and Oncology 07/28/2022 Infusion Hematology and Oncology 08/11/2022 Infusion Hematology and Oncology 08/16/2022 Office Visit Audiology Mindy Moody AUD [facility] AUDIOLOGY DEPT [place], [place] [address] (Wo rk) 11/04/2022 Office Visit Rheumatology Dante Freedman PA [facility] RHEUMATOLOGY [place], [place] [address] (Wo rk) Scheduled Referrals Name Type Priority Associated Diagnoses Order S chedule Referral to ENT Outpatient Referral Routine Hearing loss of le ft Ordered: ear, unspecified 03/06/2021 hearing loss type documented as of this encounter Results (ABNORMAL) Hemoglobin A1c (10/05/2021 8:39 AM EDT) [facility] Time Signature Hemoglobin A1C 6.4 (H) 4.3 - 5.6 [facility] [...] 36: Suppl. 1, S67-74 Est Avg Gluc 138 mg/dL [facility] Comment: eAG equivalents for HbA1c percentages: HbA1c(%) ?eAG(mg/dL) 6.0 ?126 6.5 ?140 7.0 ?154 7.5 ?169 8.0 ?183 8.5 ?197 9.0 ?212 9.5 ?226 10.0 ? 240 Limitations: The eAG calculation has not been validated on women, individuals below 18 years old and above 70 years old, and individuals with hemoglobinopathies. Additional resources are available on [facility] ADA website. Scooby MALDONADO, Nba J, Sydnee R, et al. ??Tr anslating the A1C assay into estimated average glucose values. ??Diabetes Care 2008:31(8):7042-7739. Specimen Anatomical Collection Method Collection Time Receive d Time (Source) Location / / Volume Laterality Blood 10/05/2021 8:39 AM 8:52 EDT AM EDT Resulting Agency Comment Spec In Lab Donell Hernandez MD CHEMISTRY ORDERABLES Performing Organization Address City/State/ZIP [place] [address] documented in this encounter [...] knee documented in this encounter Care Teams Account Underwriter Relationship Specialty Start Date End Date Violetta Sanford MD PCP - General 04/02/14 [address] [place] [address] documented as of this encounter
--- OUTSIDE RECORDS SUMMARY | 2022-06-16 12:25 | XMS_ITS | Encounter Summary ---
:1955 Author Organization [facility] [place] [address] Care Team Providers Name Role Phone Violetta Sanford MD Primary Care Provider Reason for Visit Reason Comments Injections SC Aranesp Treatment/Therapy Plan Authorization (Routine) - Authorized Specialty Diagnoses / Procedures Referred By Contact Refer red To Contact Hematology and Diagnoses CKD (chronic kidney disease) stage 4, GFR 15-29 ml/min Nicky Baez Elizabeth Oncology Procedures MD James NUR MD [address] HEMATOLOGY/ONCOLOGY [place], [place] DEPT. [id number] [place] [address] Referral ID Status Reason Start Date Expiration Date Visits V isits Requested Authorized [id number] Authorized 10/08/2020 07/24/2023 99 99 Encounter Details Date Type Department Care Team Description 11/19/2020 Infusion Hematology Oncology at [facility] of chronic renal [facility] failure, stage 4 (severe) [address] [place], [place] [phone] Social History Tobacco Use [...] Rojas MD [facility] Neurology [place], [place] [phone] (Oscar escobedo) 06/29/2022 Appointment Cardiology Violetta Sanford M D [address] [place] [address] (Oscar escobedo) 06/30/2022 Infusion Hematology and Oncology 07/14/2022 Infusion Hematology and Oncology 07/28/2022 Infusion Hematology and Oncology 08/11/2022 Infusion Hematology and Oncology 08/16/2022 Office Visit Audiology Mindy Moody AUD [facility] AUDIOLOGY DEPT [place], [place] [address] (Wo rk) 11/04/2022 Office Visit Rheumatology Dante Freedman PA [facility] [address] [place] [address] (Wo rk) documented as [...] (CKD) documented in this encounter Care Teams Religious Healer Relationship Specialty Start Date End Date Violetta Sanford MD PCP - General 04/02/14 [address] [place] [address] documented as of this encounter
--- OUTSIDE RECORDS SUMMARY | 2022-06-16 12:25 | XMS_ITS | Encounter Summary ---
:1955 Author Organization [facility] [place] [address] Care Team Providers Name Role Phone Violetta Sanford MD Primary Care Provider Reason for Visit Reason Onset Date Comments Prior Authorization 11/04/2020 Encounter Details Date Type Department Care Team Description 11/04/2020 Telephone Endocrinology at [facility] Len[place] [phone] Social History Tobacco Use Types Packs/Day [...] Tran RN - 11/06/2020 4:42 PM EDT [place] would like to verify drug before making a decision. They request a return call at [phone] Telephone Encounter - Leny Morales - 11/04/2020 8:57 AM EDT Medication Prior Authorization [place] Medication name/dose/directions: Glucagon HCL 1mg Rationale for request: Type II DM Health plan: [facility] ([facility]) Authorizing media sales representative name: Terri Sent to health [...] know! Gvoke Hypopen 1-pack Gvoke Hypopen 2-Pack [place] PFS documented in this encounter Plan of Treatment Upcoming Encounters Date Type Specialty Care Team Description 06/16/2022 Infusion Hematology and Oncology 06/21/2022 Office Visit Neurology Tyler Rojas MD [facility] Neurology [place], [place] [phone] (Oscar escobedo) 06/29/2022 Appointment Cardiology Violetta Sanford M D [address] [place] [address] (Oscar escobedo) 06/30/2022 Infusion Hematology and Oncology 07/14/2022 Infusion Hematology and Oncology 07/28/2022 Infusion Hematology and Oncology 08/11/2022 Infusion Hematology and Oncology 08/16/2022 Office Visit Audiology Mindy Moody AUD [facility] AUDIOLOGY [place], [place] [address] (Wo rk) 11/04/2022 Office Visit Rheumatology Dante Freedman, PA [facility] RHEUMATOLOGY [place], [place] [address] (Wo rk) documented as of this encounter Visit Diagnoses Not on filedocumented in this encounter Care Teams Lunchroom Mother Relationship Specialty Start Date End Date Violetta Sanford MD PCP - General 04/02/14 [address] [place] [address] documented as of this encounter
--- OUTSIDE RECORDS SUMMARY | 2022-06-16 12:25 | XMS_ITS | Encounter Summary ---
:1955 Author Organization [facility] [place] [address] Care Team Providers Name Role Phone Violetta Sanford MD Primary Care Provider Encounter Details Date Type Department Care Team Description 10/09/2020 Telephone Rheumatology at [facility] Phyllis Duenas [facility] Giovana [facility] [place] [address] RHEUMATOLOGY DEPT [phone] [place], [place] [address] (Wo rk) Social History Tobacco [...] MD [facility] Dr [place], [place] [phone] (Wo rk) 06/29/2022 Appointment Cardiology Violetta Sanford M D [address] [place], [place] [address] (Wo rk) 06/30/2022 Infusion Hematology and Oncology 07/14/2022 Infusion Hematology and Oncology 07/28/2022 Infusion Hematology and Oncology 08/11/2022 Infusion Hematology and Oncology 08/16/2022 Office Visit Audiology Mindy Moody AUD [facility] AUDIOLOGY [place], [place] [address] (Wo rk) 11/04/2022 Office Visit Rheumatology Dante Freedman, DA [facility] RHEUMATOLOGY [place], [place] [address] (Wo rk) documented as of this encounter Visit Diagnoses Not on filedocumented in this encounter Care Teams Front Office Administrator Relationship Specialty Start Date End Date Violetta Sanford MD PCP - General 04/02/14 [address] [place] [address] documented as of this encounter
--- OUTSIDE RECORDS SUMMARY | 2022-06-16 12:25 | XMS_ITS | Encounter Summary ---
:1955 Author Organization [facility] [place] [address] Care Team Providers Name Role Phone Violetta Sanford MD Primary Care Provider Reason for Visit Reason Comments Injections Aranesp Treatment/Therapy Plan Authorization (Routine) - Authorized Specialty Diagnoses / Procedures Referred By Contact Refer red To Contact Hematology and Diagnoses CKD (chronic kidney disease) stage 4, GFR 15-29 ml/min Nicky Baez Elizabeth Oncology Procedures MD James NUR MD [address] HEMATOLOGY/ONCOLOGY [place], [place] DEPT. [id number] [place] [address] Referral ID Status Reason Start Date Expiration Date Visits V isits Requested Authorized [id number] Authorized 10/08/2020 07/24/2023 99 99 Encounter Details Date Type Department Care Team Description 12/31/2020 Infusion Hematology Oncology at [facility] of chronic renal [facility] failure, stage 4 (severe) [address] [place], [place] [phone] Social History Tobacco Use [...] Tyler Rojas MD [facility] Neurology [place], [place] [phone] (Wo gregg) 06/29/2022 Appointment Cardiology Violetta Sanford M D [facility] [address] [place] [address] (Wo rk) 06/30/2022 Infusion Hematology and Oncology 07/14/2022 Infusion Hematology and Oncology 07/28/2022 Infusion Hematology and Oncology 08/11/2022 Infusion Hematology and Oncology 08/16/2022 Office Visit Audiology Mindy Moody AUD [facility] AUDIOLOGY [place], [place] [address] (Oscar escobedo) 11/04/2022 Office Visit Rheumatology Dante Freedman PA [facility] RHEUMATOLOGY [place], [place] [address] (Oscar escobedo) documented as of [...] (CKD) documented in this encounter Care Teams Chief Substation Operator Relationship Specialty Start Date End Date Violetta Sanford MD PCP - General 04/02/14 [address] [place] [address] documented as of this encounter
--- OUTSIDE RECORDS SUMMARY | 2022-06-16 12:25 | XMS_ITS | Encounter Summary ---
:1955 Author Organization [facility] [place] [address] Care Team Providers Name Role Phone Violetta Sanford MD Primary Care Provider Reason for Visit Reason Onset Date Comments Medication Refill 09/10/2020 Encounter Details Date Type Department Care Team Description 09/10/[facility] [place] [phone] Social History Tobacco Use Types Packs/Day [...] Tyler Rojas MD [facility] Neurology [place], [place] [phone] (Wo rk) 06/29/2022 Appointment Cardiology Violetta Sanford M D [facility] [address] [place], [place] [address] (Oscar escobedo) 06/30/2022 Infusion Hematology and Oncology 07/14/2022 Infusion Hematology and Oncology 07/28/2022 Infusion Hematology and Oncology 08/11/2022 Infusion Hematology and Oncology 08/16/2022 Office Visit Audiology Mindy Moody AUD [facility] AUDIOLOGY DEPT [place], [place] [address] (Wo rk) 11/04/2022 Office Visit Rheumatology Dante Freedman PA [facility] RHEUMATOLOGY [place], [place] [address] (Wo rk) documented as of this encounter Visit Diagnoses Diagnosis Transplanted kidney Kidney replaced by transplant documented in this encounter Care Teams Mirror Maker Relationship Specialty Start Date End Date Violetta Sanford MD PCP - General 04/02/14 [address] [place] [address] documented as of this encounter
--- OUTSIDE RECORDS SUMMARY | 2022-06-16 12:26 | XMS_ITS | Encounter Summary ---
:1955 Author Organization [place] [address] Care Team Providers Name Role Phone Violetta Sanford MD Primary Care Provider Encounter Details Date Type Department Care Team Description 09/01/2020 Office Visit Solid Organ [place]ob[place], H/O kidney tilley splant; [place] [facility] Alejo Desir MD CKD (chronic kidney disease) stage 4, GF R 15-29 ml/min; [facility] Anemia of chronic renal failure, stage 4 (severe); [facility] Renal tubular acidosis; [place], [place] TRANSPLANT Aftercare follo wing organ transplant; [id number] SURGERY Other postherpetic nervous system involv ement; [phone] [place], [place] [address] Renal osteodystrophy Social History [...] Leroy Torres Transplant Date: 02/29/2008 Organ(s) Kidney [place] organ diagnosis: Diabetes Mellitus - Type II From Transplant: 12 07/26 years ID: This is a 65 yo [...] lesions have healed. He was admitted to [facility] in October 2018 for fluid overload [...] HENNA GAMINO JR at [facility] MAIN OR ??? PRO LAP, APPENDECTOMY ?? 06/16/2013 ?? LAPAROSCOPIC APPENDECTOMY performed by Angel Mccann MD at [facility] MAIN OR ??? US RENAL TRANSPLANT LEFT Left 06/26/2019 ?? US Renal Transplant Left 06/26/2019 [facility] RAD ULTRASOUND ?? Healthcare maintenance for [...] done 03/21/2015 which was normal. Due again!! [place] kidney ultrasound looking for renal cell CA, [...] Blood-Glucose Sensor (Dexcom G6 Sensor) Device, by [facility].(Non-Drug; Combo Route) route. Sensor, fur trimmer andtransmitter, Disp: , Rfl: ??? calciTRIoL (Rocaltrol) [...] 3 ??? fluticasone propionate (FLONASE) 50 mcg/actuation Baudette, Suspension, INSTILL 2 SPRAYS INTO EACH NOSTRIL ONCE A DAY NEEDED, Disp: , Rfl: ??? triamcinolone (NASACORT or NASACORT OTC) 55 mcg Aerosol, Baudette, 2 sprays by Nasal route daily., Disp: [...] gauge x 1/2 Needle, 1 Device by [facility].(Non- Drug; Combo Route) route 3 times daily., [...] , Rfl: 1 ??? Miscellaneous Medical Supply [facility], 4 Devices by [facility].(Non-Drug; Combo Route) route daily. Rubbersheath for leg [...] from 09/01/2020 in Solid Organ Transplant at [facility] Weight 126.6 kg (279 lb 3.2 oz) [...] speech. Left hand resting tremor. Results for ASIMLEROY ABDULKADIR ( ) as of 09/09/2020 07:02 [...] min in direct face to face counseling services manager. documented in this encounter Plan of Treatment Upcoming Encounters Date Type Specialty Care Team Description 06/16/2022 Infusion Hematology and Oncology 06/21/2022 Office Visit Neurology Tyler Rojas MD [facility] Neurology [place], [place] [phone] (Wo rk) 06/29/2022 Appointment Cardiology Violetta Sanford M D [facility] [address] [address] (Wo rk) 06/30/2022 Infusion Hematology and Oncology 07/14/2022 Infusion Hematology and Oncology 07/28/2022 Infusion Hematology and Oncology 08/11/2022 Infusion Hematology and Oncology 08/16/2022 Office Visit Audiology Mindy Moody AUD [facility] AUDIOLOGY DEPT [place], [place] [address] (Wo rk) 11/04/2022 Office Visit Rheumatology Dante Freedman PA [facility] RHEUMATOLOGY [place], [place] [address] (Wo rk) documented as of this encounter Results (ABNORMAL) Comprehensive metabolic panel (non-fasting) (09/01/2020 9:39 AM EST) athologist Signature Glucose Lvl 144 65 - 199 [facility] mg/dL [facility] Comment: Diabetes: >=200 mg/dL plus symp toms BUN 39 (H) 10 - 20 mg/dL [facility] Creatinine 2.54 (H) 0.80 - 1.50 mg/dL [facility] Sodium 139 135 - 145 mmol/L [facility] Potassium 4.4 3.5 - 5.0 mmol/L [facility] Comment: Please note: ??Patients with WBC >100,00 0 may have falsely elevated Potassium levels. ??For accurate Potassium quantif ication in these patients send serum separator tube (gold top) for subsequent determinations. ??Contact the Clinical Chemistry Laboratory if there are any qu estions. Chloride 109 (H) 98 - 107 mmol/L [facility] CO2 20 (L) 22 - 31 mmol/L [facility] Anion Gap 10 5 - 15 mmol/L [facility] Calcium 9.3 8.5 - 10.5 mg/dL [facility] Total Protein 7.0 6.1 - 8.0 gm/dL [facility] Albumin 3.4 3.2 - 5.2 gm/dL [facility] AST 12 0 - 39 unit/L [facility] ALT 11 0 - 55 unit/L [facility] Alk Phos 112 40 - 130 unit/L [facility] Total Bilirubin 0.2 0.2 - 1.3 mg/dL [facility] Estimated GFR 25 (L) >=60 mL/min/1.73 m?? [facility] Comment: This patient? s [...] Garnett MD CHEMISTRY ORDERABLES Performing Organization Address City/[facility] Code Phon e Number [address] Magnesium (09/01/2020 9:39 AM EST) P athologist Signature Magnesium 0.73 0.69 - 1.07 [facility] mmol/L [facility] Specimen Anatomical Collection Method Collection Time Receive d Time (Source) Location / / Volume Laterality Blood specimen 09/01/2020 9:39 AM 9:49 (specimen) EST AM EST Resulting Agency Comment Spec In Lab Alejo Garnett MD CHEMISTRY ORDERABLES Performing Organization Address City/[facility] Code Phon e Number [address] Phosphorus (09/01/2020 9:39 AM EST) P athologist Signature Phosphorus 3.6 2.5 - 4.5 [facility] mg/dL [facility] Specimen Anatomical Collection Method Collection Time Receive d Time (Source) Location / / Volume Laterality Blood specimen 09/01/2020 9:39 AM 9:49 (specimen) EST AM EST Resulting Agency Comment Spec In Lab Alejo Garnett MD CHEMISTRY ORDERABLES Performing Organization Address City/[facility]/ZIP Code Phon e Number [address] Uric acid (09/01/2020 9:39 AM EST) P athologist Signature Uric Acid 7.3 3.5 - 8.5 [facility] mg/dL [facility] Specimen Anatomical Collection Method Collection Time Receive d Time (Source) Location / / Volume Laterality Blood specimen 09/01/2020 9:39 AM 021 9:49 (specimen) EST AM EST Resulting Agency Comment Spec In Lab Alejo Garnett MD CHEMISTRY ORDERABLES Performing Organization Address City/[facility]/ZIP Code Phon e Number [address] Tacrolimus level (09/01/2020 9:39 AM EST) athologist Signature Tacrolimus Lvl 4.0 ng/mL [facility] Comment: Please be advised that as [...] Garnett MD CHEMISTRY ORDERABLES Performing Organization Address City/[facility]/ZIP Code Phon e Number [address] Reticulocyte Count (09/01/2020 9:39 AM EST) athologist Signature Retic Ct % 2.0 0.7 - 2.6 [facility] LABORATORY Retic Ct Abs 0.060 0.030 - [facility] 0.120 [facility] x10(6)/[facility] LABORATORY Immature Retic% 12.1 0.0 - 15.6 [facility] Reticulated Hgb 33.8 31.3 - [facility] 40.2 [facility] LABORATORY Specimen Anatomical Collection Method Collection Time Receive d Time (Source) Location / / Volume Laterality Blood specimen 09/01/2020 9:39 AM 9:49 (specimen) EST AM EST Resulting Agency Comment Spec In Lab Alejo Garnett MD HEMATOLOGY ORDERABLES Performing Organization Address City/[facility]/ZIP [facility] Phon e Number [address] Cholesterol, total (09/01/2020 9:39 AM EST) athologist Signature Chol, Total 92 mg/dL [facility] Comment: Lower Risk: <200 mg/dL Average Risk: 200-239 mg/dL Higher Risk: >tj=898 mg/dL Lipid Interpretation See Note [facility] Comment: Lipid management should be guided by a p atient? s ASCVD risk, goals and preferences. ACC/AHA Guidelines recommend high intens ity statin if clinical ASCVD or LDL greater than or equal to 190 mg/dL. http://[employer].com/WYL-JGV-Ngdwimbsw Adults aged 40-75 with LDL 70-189 mg/dL should have their 10 year ASCVD risk estimated with the ACC/AHA ASCVD risk es timator http://tools.acc.org/UYCPW-Uuir-Xgsnqset r/ Statin should be discussed if risk [...] Organization Address City/State/[place] [address] documented in this encounter [...] osteodystrophy documented in this encounter Care Teams Dough Molder Relationship Specialty Start Date End Date Violetta Sanford MD PCP - General 04/02/14 [address] [place] [address] documented as of this encounter
--- OUTSIDE RECORDS SUMMARY | 2022-06-16 12:26 | XMS_ITS | Encounter Summary ---
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 Appt Needed and Reason: n/a Provider: Donell Hernandez documented in this encounter Plan of Treatment Upcoming Encounters Date Type Specialty Care Team Description 06/16/2022 Infusion Hematology and Oncology 06/21/2022 Office Visit Neurology Tyler Rojas MD [facility] Neurology [place], [place] [phone] (Wo rk) 06/29/2022 Appointment Cardiology Violetta Sanford M D [address] [place], [place] [address] (Wo rk) 06/30/2022 Infusion Hematology and Oncology 07/14/2022 Infusion Hematology and Oncology 07/28/2022 Infusion Hematology and Oncology 08/11/2022 Infusion Hematology and Oncology 08/16/2022 Office Visit Audiology Mindy Moody AUD [facility] AUDIOLOGY DEPT [place], [place] [address] (Wo rk) 11/04/2022 Office Visit Rheumatology Dante Freedman PA [facility] RHEUMATOLOGY [place], [place] [address] (Wo rk) documented as of this encounter Visit Diagnoses Not on filedocumented in this encounter Care Teams Zipper Cutter Relationship Specialty Start Date End Date Violetta Sanford MD PCP - General 04/02/14 [address] [place] [address] documented as of this encounter
--- OUTSIDE RECORDS SUMMARY | 2022-06-16 12:26 | XMS_ITS | Encounter Summary ---
:1955 Author Organization [facility] [place] [address] Care Team Providers Name Role Phone Violetta Sanford MD Primary Care Provider Reason for Visit Consultation (Routine) - Closed Specialty Diagnoses / Procedures Referred By Contact Refer red To Contact Endocrinology Diagnoses Type 2 diabetes mellitus with hyperglycemia, with long-term current use of insulin Donell Hernandez MD Kline, Erika L, RD [facility] D R [facility] DR [place] [address] [place] [address] Referral ID Status Reason Start Date Expiration Date Visits V isits Requested Authorized [id number] Closed Consult, 09/12/2019 09/11/2020 1 1 Test & Treat Encounter Details Date Type Department Care Team Description 09/20/2019 Office Visit Endocrinology at [facility] Ivett Marques, Type [address] [facility] [address] mellitus with Drive [facility] MEDICAL [place], [place] [address] long-term current use [phone] [place] [address] of insulin Social History Tobacco Use Types [...] distributor to get your to get your freestyle oc 14-day continuous glucose monitoring system. documented in this encounter Progress Notes Ivett Shah RD - 09/20/2019 11:00 AM EST [facility] Adult Endocrinology Diabetes Education and Nutrition Services: [...] levels and make treatment decisions is provided. Religious Activities Director Model Name Alerts: Pump Integration Parts: Fingerstick Calibrations? Medtronic Guardian Connect Yes: low, high, predictive low up to 60 min in advance No, stand alone version Akita Iphone: The Pickwick Projectan Connect Jarrell, Sugar IQ Jarrell Sensors: 7 day wear; Box of 5 Transmitter: rechargeable/reuseable Oval tape: pack of 10 come with sensors Reusable sensor furniture polisher Yes Every 12 hours minimum Medtronic Guardian Sensor (3) Yes: low, high Yes: Medtronic 630G, 670G Medtronic 630G or 670G Pump Sensors: 7 day wear; Box of 5 Transmitter: rechargeable/reuseable Oval tape: pack of 10 come with sensors Reusable sensor furniture polisher Yes Every 12 hours minimum Dexcom G6 Yes: low, high, predictive low 20 min in advance for < 55 mg/dL Yes: Tandem T:slim x2 with Control IQ or Basal IQ Touchscreen print cutter or Smartphone (Iphone or Android) or Tslimx2 [...] levels and make insulin treatment decisions. Ivett L Shah, MS, RDN, LD Registered Dietitian Manufacturing Tech Intercell Connector Placer [facility] Adult Endocrinology 60 minutes of face to face diabetes education and counseling provided regarding continuous glucose monitoring therapy and devices. documented in this encounter Plan of Treatment Upcoming Encounters Date Type Specialty Care Team Description 06/16/2022 Infusion Hematology and Oncology 06/21/2022 Office Visit Neurology Tyler Rojas MD [facility] Neurology [place], [place] [phone] (Wo rk) 06/29/2022 Appointment Cardiology Violetta Sanford M D [address] [place], [place] [id number] (Wo rk) 06/30/2022 Infusion Hematology and Oncology 07/14/2022 Infusion Hematology and Oncology 07/28/2022 Infusion Hematology and Oncology 08/11/2022 Infusion Hematology and Oncology 08/16/2022 Office Visit Audiology Mindy Moody AUD [facility] AUDIOLOGY DEPT [place], [place] [address] (Wo rk) 11/04/2022 Office Visit Rheumatology Dante Freedman PA [facility] RHEUMATOLOGY [place], [place] [address] (Wo rk) Scheduled Referrals [...] insulin documented in this encounter Care Teams Machine Packager Relationship Specialty Start Date End Date Violetta Sanford MD PCP - General 04/02/14 [address] [place], [place] [id number] documented as of this encounter
--- OUTSIDE RECORDS SUMMARY | 2022-06-16 12:26 | XMS_ITS | Encounter Summary ---
:1955 Author Organization [facility] [place] [address] Care Team Providers Name Role Phone Violetta Sanford MD Primary Care Provider Reason for Visit Reason Onset Date Comments Medication Refill 04/08/2020 Encounter Details Date Type Department Care Team Description 04/08/2020 Refill Solid Organ Transpla nt at [facility] Aria Khan, [place] [address] Social History Tobacco Use Types Packs/Day [...] Tyler Rojas MD [facility] Neurology [place], [place] [phone] (Wo rk) 06/29/2022 Appointment Cardiology Violetta Sanford M D [address] [place] [address] (Oscar escobedo) 06/30/2022 Infusion Hematology and Oncology 07/14/2022 Infusion Hematology and Oncology 07/28/2022 Infusion Hematology and Oncology 08/11/2022 Infusion Hematology and Oncology 08/16/2022 Office Visit Audiology Mindy Moody AUD [facility] AUDIOLOGY DEPT [place], [place] [address] (Wo rk) 11/04/2022 Office Visit Rheumatology Dante Freedman PA [facility] RHEUMATOLOGY [place], [place] [address] (Wo rk) documented as of this encounter Visit Diagnoses Not on filedocumented in this encounter Care Teams Granite Chip Terrazzo Finisher Relationship Specialty Start Date End Date Violetta Sanford MD PCP - General 04/02/14 [address] [place] [address] documented as of this encounter
--- OUTSIDE RECORDS SUMMARY | 2022-06-16 12:26 | XMS_ITS | Encounter Summary ---
:1955 Author Organization [facility] [place] [address] Care Team Providers Name Role Phone Violetta Sanford MD Primary Care Provider Encounter Details Date Type Department Care Team Description 03/17/2020 Telephone Solid Organ Transplant at [facility] [address] Social History Tobacco Use Types Packs/Day [...] Will fax over yearly lab orders to [facility] per Leroy's lab preference. Advised to call back kidney transplant clinic with any questions or updates. documented in this encounter Plan of Treatment Upcoming Encounters Date Type Specialty Care Team Description 06/16/2022 Infusion Hematology and Oncology 06/21/2022 Office Visit Neurology Tyler Rojas MD [facility] Neurology [place], [place] [phone] (Wo rk) 06/29/2022 Appointment Cardiology Violetta Sanford M D [address] [place], [place] [address] (Wo rk) 06/30/2022 Infusion Hematology and Oncology 07/14/2022 Infusion Hematology and Oncology 07/28/2022 Infusion Hematology and Oncology 08/11/2022 Infusion Hematology and Oncology 08/16/2022 Office Visit Audiology Mindy Moody AUD [facility] AUDIOLOGY [place], [place] [address] (Wo rk) 11/04/2022 Office Visit Rheumatology Dante Freedman PA [facility] RHEUMATOLOGY [place], [place] [address] (Wo rk) documented as of this encounter Visit Diagnoses Not on filedocumented in this encounter Care Teams Decorating And Assembly Supervisor Relationship Specialty Start Date End Date Violetta Sanford MD PCP - General 04/02/14 [address] [place], [place] [address] documented as of this encounter
--- OUTSIDE RECORDS SUMMARY | 2022-06-16 12:26 | XMS_ITS | Encounter Summary ---
:1955 Author Organization [facility] [address] Care Team Providers Name Role Phone Violetta Sanford MD Primary Care Provider Reason for Visit Reason Onset Date Comments Pump/sensor 10/25/2019 Encounter Details Date Type Department Care Team Description 10/25/2019 Telephone Endocrinology at [facility] Breanne Garcia RN Pump/[place] [address] Social History Tobacco Use Types Packs/Day [...] Elliott RN - 10/25/2019 11:30 AM EDT Rcvd msg from Shona Bae, pt's healthcare manager at [facility] ([phone]), inquiring as to status of pt's CGM and stating he's been getting the runaround from [facility]. Per chart notes, paperwork was sent to [facility]. Per Terri Morales, no paperwork was received from [facility]. Left msg for Shona with that info and asked for r/c. documented in this encounter Plan of Treatment Upcoming Encounters Date Type Specialty Care Team Description 06/16/2022 Infusion Hematology and Oncology 06/21/2022 Office Visit Neurology Tyler Rojas MD [facility] Neurology [place], [place] [phone] (Wo rk) 06/29/2022 Appointment Cardiology Violetta Sanford M D [address] [place], [place] [address] (Wo rk) 06/30/2022 Infusion Hematology and Oncology 07/14/2022 Infusion Hematology and Oncology 07/28/2022 Infusion Hematology and Oncology 08/11/2022 Infusion Hematology and Oncology 08/16/2022 Office Visit Audiology Mindy Moody AUD [facility] AUDIOLOGY [place], [place] [address] (Wo rk) 11/04/2022 Office Visit Rheumatology Dante Freedman PA [facility] RHEUMATOLOGY [place], [place] [address] (Wo rk) documented as of this encounter Visit Diagnoses Not on filedocumented in this encounter Care Teams Interior Design Consultant Relationship Specialty Start Date End Date Violetta Sanford MD PCP - General 04/02/14 [address] [place] [address] documented as of this encounter
--- OUTSIDE RECORDS SUMMARY | 2022-06-16 12:26 | XMS_ITS | Encounter Summary ---
:1955 Author Organization [facility] [place] [address] Care Team Providers Name Role Phone Violetta Sanford MD Primary Care Provider Reason for Referral Diagnostic Test (Routine) - Closed Specialty Diagnoses / Procedures Referred By Contact Refer red To Contact Cardiology Diagnoses PAF (paroxysmal atrial fibrillation) J Lius Quispe MD [facility] Cardiology 4a Procedures [facility] [place] [address] [place] [address] Referral ID Status Reason Start Date Expiration Date Visits V isits Requested Authorized [id number] Closed Specialty 08/16/2019 09/03/2019 1 1 Service Requested Reason for Visit Diagnostic Test (Routine) - Closed Specialty Diagnoses / Procedures Referred By Contact Refer red To Contact Cardiology Diagnoses PAF (paroxysmal atrial fibrillation) J Luis Quispe MD [facility] Cardiology 4a Procedures [facility] [place] [address] [place] [address] Referral ID Status Reason Start Date Expiration Date Visits V isits Requested Authorized [id number] Closed Specialty 08/16/2019 09/03/2019 1 1 Service Requested Encounter Details Date Type Department Care Team Description 08/16/2019 Hospital Encounter Non-Invasive Quispe, J Luis PAF ( paroxysmal Cardiology Lab Sylvia Dsouza MD atrial [facility] fib rillation) Hospital [facility] CARDIOLOGY [place] [address] [place] [phone] (Work) [phone] Social History Tobacco Use Types Packs/Day Years [...] by 4 each 0 12/02/2015 Supply [facility]Non-Drug; Combo MiscIndications: S/P Route) route daily. bilateral [...] Tyler Rojas MD [facility] Neurology [place], [place] [phone] (Oscar escobedo) 06/29/2022 Appointment Cardiology Violetta Sanford M D [address] [place] [address] (Wo rk) 06/30/2022 Infusion Hematology and Oncology 07/14/2022 Infusion Hematology and Oncology 07/28/2022 Infusion Hematology and Oncology 08/11/2022 Infusion Hematology and Oncology 08/16/2022 Office Visit Audiology Mindy Moody, [facility] AUDIOLOGY DEPT [place], [place] [address] (Wo rk) 11/04/2022 Office Visit Rheumatology Dante Freedman PA [facility] RHEUMATOLOGY [place], [place] [address] (Wo rk) documented [...] Laterality Volume Narrative 09/03/2019 10:23 PM EST [facility] ? Zio Patch? Ambulatory Cardiac Event Monitor Report Indication: paroxysmal atrial fibrillati on Duration of recording ? 1 day 7 hours Summary Data Predominant rhythm ? sinus rhythm with prolonged MI interval Minimum sinus rate 76 bpm Maximum [...] ventricular tachycardia is observed. Fransico Chávez MD S Cardiac Electrophysiology 09/03/2019 10:21 PM J Luis Quispe MD CARDIAC SERVICES ORDERABLES documented in this encounter Visit Diagnoses Diagnosis PAF (paroxysmal atrial fibrillation) Atrial fibrillation documented in this encounter Care Teams Licensed Weigher Relationship Specialty Start Date End Date Violetta Sanford MD PCP - General 04/02/14 [address] [place] [address] documented as of this encounter
--- OUTSIDE RECORDS SUMMARY | 2022-06-16 12:26 | XMS_ITS | Encounter Summary ---
:1955 Author Organization [facility] [place] [address] Care Team Providers Name Role Phone Violetta [...] Alejo Garnett MD Costa, Salvatore P, MD [facility] TRANSPLANT SURGERY [place] [address] [place] [address] Fax: Referral ID Status Reason Start Date Expiration Date Visits V isits Requested Authorized [id number] Consult, 07/09/2019 07/08/2020 10 10 Test & Treat Encounter Details Date Type Department Care Team Description 11/15/2019 TH Visit Cardiology at [facility] Luis Quispe, PAF (paroxysmal (TeleHealth) [facility] atrial fibrillation) [place] [address] CARDIOLOGY DEPT. [phone] [place], [place] [address] (Wo rk) Social History Tobacco [...] the original note were not included. Formerly [facility] [place] [address] 71 CARDIOLOGY/ VASCULAR OUTPATIENT NOTE Leroy Sanford MD Patient verbally consents to this telephone visit and understands that this visit may be billed, similar to a clinic office visit. From my prior note (Jul 2019) : 64 year old male with diabetes and multiple complications including: bilateral BKA, ESRD s/p kidney transplant in 2007 referred to cardiology clinic for director long term care management of PAF. He is in NSR today.He has no significant history of CAD. He has had a prior stress echo that was normal in 2014. He denies any history of [place]. ?? Apparently during a hospitalization for PNA [...] double amputee who lives with his in [facility] (near [facility]). States that he feels great although he [...] Refill ??? fluticasone propionate (FLONASE) 50 mcg/actuation [place], Suspension INSTILL 2 SPRAYS INTO EACH NOSTRIL ONCE A DAY NEEDED ??? triamcinolone (NASACORT or NASACORT OTC) 55 mcg Aerosol, [place] 2 sprays by Nasal route daily. 1 [...] x 1/2 Needle 1 Device by [facility].(Non- Drug; Combo Route) route 3 times [...] lungs daily. 1 ??? Miscellaneous Medical Supply [facility] 4 Devices by [facility].(Non-Drug; Combo Route) route daily. Rubber sheath [...] in 2007 referred to cardiology clinic for director long term care management of PAF. He was in NSR in July. He has no significant history of CAD. He has had a prior stress echo that was normal in 2014. He denies any history of [place]. ?? Apparently during a hospitalization for PNA [...] associated with this visit was 25 minutes. [id number] 0-5min [id number] 6-10min [id number] 11-15min 4425HOA5 16-20min xx [id number] 21-30min 1459GHK8 31-40min [id number] 40+ min documented in this encounter Plan of Treatment Upcoming Encounters Date Type Specialty Care Team Description 06/16/2022 Infusion Hematology and Oncology 06/21/2022 Office Visit Neurology Tyler Rojas MD [facility] Neurology [place], [place] [phone] (Wo rk) 06/29/2022 Appointment Cardiology Violetta Sanford M D [address] [place] [address] ( rk) 06/30/2022 Infusion Hematology and Oncology 07/14/2022 Infusion Hematology and Oncology 07/28/2022 Infusion Hematology and Oncology 08/11/2022 Infusion Hematology and Oncology 08/16/2022 Office Visit Audiology Mindy Moody AUD [facility] AUDIOLOGY [place], [place] [address] ( rk) 11/04/2022 Office Visit Rheumatology Dante Freedman PA [facility] RHEUMATOLOGY [place], [place] [address] ([facility]) documented as of this encounter Visit Diagnoses Diagnosis PAF (paroxysmal atrial fibrillation) Atrial fibrillation documented in this encounter Care Teams Infantry Officer Relationship Specialty Start Date End Date Violetta Sanford MD PCP - General 04/02/14 [address] [place] [address] documented as of this encounter
--- OUTSIDE RECORDS SUMMARY | 2022-06-16 12:26 | XMS_ITS | Encounter Summary ---
:1955 Author Organization [facility] [place] [address] Care Team Providers Name Role Phone Violetta Sanford MD Primary Care Provider Reason for Visit Reason Comments Medication Refill Encounter Details Date Type Department Care Team Description 05/26/2020 Refill Solid Organ Transplant at [facility] lucinda Desir, Transplanted kidney [facility] [place] [address] TRANSPLANT SURGERY [phone] [place], [place] [address] (Oscar escobedo) Social History Tobacco [...] Rojas MD [facility] Dr [place]i [place], [place] [phone] (Wo rk) 06/29/2022 Appointment Cardiology Violetta Sanford M D [address] [place] [address] (Oscar escobedo) 06/30/2022 Infusion Hematology and Oncology 07/14/2022 Infusion Hematology and Oncology 07/28/2022 Infusion Hematology and Oncology 08/11/2022 Infusion Hematology and Oncology 08/16/2022 Office Visit Audiology Mindy Moody AUD [facility] AUDIOLOGY [place], [place] 0[address] (Wo rk) 11/04/2022 Office Visit Rheumatology Dante Freedman, DA [facility] RHEUMATOLOGY [place], [place] 0[address] (Wo rk) documented as of this encounter Visit Diagnoses Diagnosis Transplanted kidney Kidney replaced by transplant documented in this encounter Care Teams Chemical Radiation Technician Relationship Specialty Start Date End Date Violetta Sanford MD PCP - General 04/02/14 [address] [place] [address] documented as of this encounter
--- OUTSIDE RECORDS SUMMARY | 2022-06-16 12:26 | XMS_ITS | Encounter Summary ---
:1955 Author Organization [facility] [address] Care Team Providers Name Role Phone Violetta Sanford MD Primary Care Provider Encounter Details Date Type Department Care Team Description 08/21/2020 Notes Only Solid Organ Transpla nt at [facility] [place] [address] Social History Tobacco Use Types Packs/Day [...] Calderon - 08/21/2020 1:43 PM EST Transplant Glass Sander Note: Received PA request for Prograf, initiated by Pharmacy. Per discussion and chart review, found that patient dropped his AARP Medicare Advantage Plan and reverted to traditional Medicare A, B, D ([place]) and [place] supplement plan N. Immunos are covered under [...] Tyler Rojas MD [facility] Neurology [place], [place] [phone] (Wo rk) 06/29/2022 Appointment Cardiology Violetta Sanford M D [address] [place], [place] [address] (Wo rk) 06/30/2022 Infusion Hematology and Oncology 07/14/2022 Infusion Hematology and Oncology 07/28/2022 Infusion Hematology and Oncology 08/11/2022 Infusion Hematology and Oncology 08/16/2022 Office Visit Audiology Mindy Moody AUD [facility] AUDIOLOGY DEPT [place], [place] 0[address] (Wo rk) 11/04/2022 Office Visit Rheumatology Dante Freedman PA [facility] RHEUMATOLOGY [place], [place] [address] (Wo rk) documented as of this encounter Visit Diagnoses Not on filedocumented in this encounter Care Teams Apparel Sales Leader Relationship Specialty Start Date End Date Violetta Sanford MD PCP - General 04/02/14 [address] [place], [place] [address] documented as of this encounter
--- OUTSIDE RECORDS SUMMARY | 2022-06-16 12:26 | XMS_ITS | Encounter Summary ---
:1955 Author Organization [facility] [place] [address] Care Team Providers Name Role Phone Violetta Sanford MD Primary Care Provider Reason for Visit Reason Onset Date Comments Pump/sensor 07/07/2020 Encounter Details Date Type Department Care Team Description 07/07/2020 Telephone Endocrinology at [facility] C Leny Morales Pump/[place] [address] Social History Tobacco Use Types Packs/Day Years [...] 8:01 AM EST Documentation request received from [facility]. Office note routed Confirmed 07/07 documented in this encounter Plan of Treatment Upcoming Encounters Date Type Specialty Care Team Description 06/16/2022 Infusion Hematology and Oncology 06/21/2022 Office Visit Neurology Tyler Rojas MD [facility] er Dr Farah [place], [place] [phone] (Wo rk) 06/29/2022 Appointment Cardiology Violetta Sanford M D [address] [place] [address] (Wo rk) 06/30/2022 Infusion Hematology and Oncology 07/14/2022 Infusion Hematology and Oncology 07/28/2022 Infusion Hematology and Oncology 08/11/2022 Infusion Hematology and Oncology 08/16/2022 Office Visit Audiology Mindy Moody, WENDI [facility] AUDIOLOGY [place], [place] [address] (Wo rk) 11/04/2022 Office Visit Rheumatology Dante Freedman, PA [facility] RHEUMATOLOGY 0375 (Wo rk) documented as of this encounter Visit Diagnoses Not on filedocumented in this encounter Care Teams Internet Database Specialist Relationship Specialty Start Date End Date Violetta Sanford MD PCP - General 04/02/14 [address] [place] [address] documented as of this encounter
--- OUTSIDE RECORDS SUMMARY | 2022-06-16 12:26 | XMS_ITS | Encounter Summary ---
:1955 Author Organization [place] [address] Care Team Providers Name Role Phone Violetta Sanford MD Primary Care Provider Reason for Visit Reason Onset Date Comments Medication Refill 09/02/2020 Encounter Details Date Type Department Care Team Description 09/02/2020 Refill Solid Organ Transplant at [facility] Alejo france MD [facility] nayeli [place] [address] [place] [address] [phone] (Oscar escobeod) Social History Tobacco Use Types Packs/Day Years [...] Rojas MD [facility] Neurology [place], [place] [phone] (Wo rk) 06/29/2022 Appointment Cardiology Violetta Sanford M D [address] [place], [place] [address] (Oscar rk) 06/30/2022 Infusion Hematology and Oncology 07/14/2022 Infusion Hematology and Oncology 07/28/2022 Infusion Hematology and Oncology 08/11/2022 Infusion Hematology and Oncology 08/16/2022 Office Visit Audiology Mindy Moody, WENDI [facility] AUDIOLOGY [place], [place] [address] (Wo rk) 11/04/2022 Office Visit Rheumatology Dante Freedman, PA [facility] RHEUMATOLOGY [place], [place] 0[address] (Wo rk) documented as of this encounter Visit Diagnoses Not on filedocumented in this encounter Care Teams Bakery Products Checker Relationship Specialty Start Date End Date Violetta Sanford MD PCP - General 04/02/14 [address] [place] [address] documented as of this encounter
--- OUTSIDE RECORDS SUMMARY | 2022-06-16 12:26 | XMS_ITS | Encounter Summary ---
:1955 Author Organization [facility] [place] [address] Care Team Providers Name Role Phone Violetta Sanford MD Primary Care Provider Encounter Details Date Type Department Care Team Description 03/26/2020 Telephone Solid Organ Transplant at Aisha Aceves [facility] [place] [address] Social History Tobacco Use Types Packs/Day [...] Rojas MD [facility] Dr Sofi [place], [place] [address] (Wo rk) 06/29/2022 Appointment Cardiology Violetta Sanford M D [address] [place], [place] [id number] (Wo rk) 06/30/2022 Infusion Hematology and Oncology 07/14/2022 Infusion Hematology and Oncology 07/28/2022 Infusion Hematology and Oncology 08/11/2022 Infusion Hematology and Oncology 08/16/2022 Office Visit Audiology Mindy Moody, WENDI [facility] AUDIOLOGY [place], [place] 0[address] (Wo rk) 11/04/2022 Office Visit Rheumatology Dante Freedman, DA [facility] RHEUMATOLOGY [place], [place] 0[address] (Wo rk) documented as of this encounter Visit Diagnoses Not on filedocumented in this encounter Care Teams Electromechanic Relationship Specialty Start Date End Date Violetta Sanford MD PCP - General 04/02/14 [address] [place], [place] [id number] documented as of this encounter
--- OUTSIDE RECORDS SUMMARY | 2022-06-16 12:26 | XMS_ITS | Encounter Summary ---
:1955 Author Organization [facility] [place] [address] Care Team Providers Name Role Phone Violetta Sanford MD Primary Care Provider Encounter Details Date Type Department Care Team Description 08/21/2020 Notes Only Solid Organ Transpla nt at [facility] [place] [address] Social History Tobacco Use Types Packs/Day [...] Calderon - 08/21/2020 5:15 PM EST Transplant Porter Bath Note: Reached patient by phone, advised that Pharmacy will not continue to fill Prograf after this month due to Medicare reimbursement. He would like to use [place], [place]. Communication to nursing team to advise of [facility] pharmacy. documented in this encounter Plan of Treatment Upcoming Encounters Date Type Specialty Care Team Description 06/16/2022 Infusion Hematology and Oncology 06/21/2022 Office Visit Neurology Tyler Rojas MD [facility] Dr Farah [place], [place] [address] (Wo rk) 06/29/2022 Appointment Cardiology Violetta Sanford M D [address] [place], [place] [id number] (Wo rk) 06/30/2022 Infusion Hematology and Oncology 07/14/2022 Infusion Hematology and Oncology 07/28/2022 Infusion Hematology and Oncology 08/11/2022 Infusion Hematology and Oncology 08/16/2022 Office Visit Audiology Mindy Moody, WENDI [facility] AUDIOLOGY [place], [place] 0[address] (Wo rk) 11/04/2022 Office Visit Rheumatology Dante Freedman, PA [facility] RHEUMATOLOGY [place], [place] 0[address] (Wo rk) documented as of this encounter Visit Diagnoses Not on filedocumented in this encounter Care Teams Vending Technician Relationship Specialty Start Date End Date Violetta Sanford MD PCP - General 04/02/14 [address] [place], [place] [address] documented as of this encounter
--- OUTSIDE RECORDS SUMMARY | 2022-06-16 12:26 | XMS_ITS | Encounter Summary ---
:1955 Author Organization [facility] [place] [address] Care Team Providers Name Role Phone Violetta Sanford MD Primary Care Provider Reason for Visit Reason Onset Date Comments Medication Refill 08/22/2020 Encounter Details Date Type Department Care Team Description 08/22/2020 Refill Solid Organ Transplant at [facility] lucinda Desir, Transplanted kidney [facility] [place] [address] TRANSPLANT SURGERY [phone] [place], [place] [address] (Oscar escobedo) Social History Tobacco [...] MD [facility] Dr Sofi [place], [place] [address] (Wo rk) 06/29/2022 Appointment Cardiology Violetta Sanford M D [address] [place], [place] [id number] (Oscar escobedo) 06/30/2022 Infusion Hematology and Oncology 07/14/2022 Infusion Hematology and Oncology 07/28/2022 Infusion Hematology and Oncology 08/11/2022 Infusion Hematology and Oncology 08/16/2022 Office Visit Audiology Mindy Moody, WENDI [facility] AUDIOLOGY [place], [place] [address] (Wo rk) 11/04/2022 Office Visit Rheumatology Dante Freedman, PA [facility] RHEUMATOLOGY [place], [place] [address] (Wo rk) documented as of this encounter Visit Diagnoses Diagnosis Transplanted kidney Kidney replaced by transplant documented in this encounter Care Teams Rn School Relationship Specialty Start Date End Date Violetta Sanford MD PCP - General 04/02/14 [address] [place] [address] documented as of this encounter
--- OUTSIDE RECORDS SUMMARY | 2022-06-16 12:26 | XMS_ITS | Encounter Summary ---
:1955 Author Organization [facility] [place] [address] Care Team Providers Name Role Phone Violetta Sanford MD Primary Care Provider Reason for Visit Reason Comments Medication Refill Encounter Details Date Type Department Care Team Description 08/25/2020 Refill Solid Organ Transplant at [facility] lucinda Desir, Transplanted kidney [facility] [place] [address] TRANSPLANT SURGERY [phone] [place], [place] [address] (Oscar escobedo) Social History Tobacco [...] MD [facility] Dr [place]i [place], [place] [address] (Wo rk) 06/29/2022 Appointment Cardiology Violetta Sanford M D [address] [place] [address] (Oscar escobedo) 06/30/2022 Infusion Hematology and Oncology 07/14/2022 Infusion Hematology and Oncology 07/28/2022 Infusion Hematology and Oncology 08/11/2022 Infusion Hematology and Oncology 08/16/2022 Office Visit Audiology Mindy Moody AUD [facility] AUDIOLOGY [place], [place] [address] (Wo rk) 11/04/2022 Office Visit Rheumatology Dante Freedman, DA [facility] RHEUMATOLOGY [place], [place] [address] (Wo rk) documented as of this encounter Visit Diagnoses Diagnosis Transplanted kidney Kidney replaced by transplant documented in this encounter Care Teams Matrix Bath Operator Relationship Specialty Start Date End Date Violetta Sanford MD PCP - General 04/02/14 [address] [place] [address] documented as of this encounter
--- OUTSIDE RECORDS SUMMARY | 2022-06-16 12:26 | XMS_ITS | Encounter Summary ---
:1955 Author Organization [facility] [place] [address] Care Team Providers Name Role Phone Violetta Sanford MD Primary Care Provider Reason for Visit Reason Onset Date Comments Pump/sensor 05/19/2020 Encounter Details Date Type Department Care Team Description 05/19/2020 Telephone Endocrinology at [facility] Leny Kohler Pump/[place] [address] Social History Tobacco Use Types Packs/Day [...] 8:38 AM EDT Doctor order received from [facility]. Filled out. Office note printed Dr. Hernandez will sign. I will fax. documented in this encounter Plan of Treatment Upcoming Encounters Date Type Specialty Care Team Description 06/16/2022 Infusion Hematology and Oncology 06/21/2022 Office Visit Neurology Tyler Rojas MD [facility] Neurology [place], [place] [address] (Wo rk) 06/29/2022 Appointment Cardiology Violetta Sanford M D [address] [place], [place] [address] (Wo rk) 06/30/2022 Infusion Hematology and Oncology 07/14/2022 Infusion Hematology and Oncology 07/28/2022 Infusion Hematology and Oncology 08/11/2022 Infusion Hematology and Oncology 08/16/2022 Office Visit Audiology Mindy Moody AUD [facility] AUDIOLOGY DEPT [place], [place] [address] (Wo rk) 11/04/2022 Office Visit Rheumatology Dante Freedman PA [facility] RHEUMATOLOGY [place], [place] [address] (Wo rk) documented as of this encounter Visit Diagnoses Not on filedocumented in this encounter Care Teams Floor Worker Relationship Specialty Start Date End Date Violetta Sanford MD PCP - General 04/02/14 [address] [place] [address] documented as of this encounter
--- OUTSIDE RECORDS SUMMARY | 2022-06-16 12:26 | XMS_ITS | Encounter Summary ---
:1955 Author Organization [place] [address] Care Team Providers Name Role Phone Violetta Sanford MD Primary Care Provider Encounter Details Date Type Department Care Team Description 06/24/2020 Laboratory Appointment Lab 3L [facility] Type 2 diabetes [facility] mellitus with [facility] hypergly emme, with Drive long-term current use [place], [place] of insulin [address] Social History Tobacco Use Types Packs/Day Years [...] Tyler Rojas MD [facility] Neurology [place], [place] [address] (Wo rk) 06/29/2022 Appointment Cardiology Violetta Sanford M D [address] [place], [place] [id number] (Oscar escobedo) 06/30/2022 Infusion Hematology and Oncology 07/14/2022 Infusion Hematology and Oncology 07/28/2022 Infusion Hematology and Oncology 08/11/2022 Infusion Hematology and Oncology 08/16/2022 Office Visit Audiology Mindy Moody AUD [facility] AUDIOLOGY DEPT [place], [place] [address] (Wo rk) 11/04/2022 Office Visit Rheumatology Dante Freedman PA [facility] RHEUMATOLOGY [place], [place] [address] (Wo rk) documented as of [...] (06/24/2020 10:57 AM EST) [facility] Time Signature Creatinine 2.48 (H) 0.80 [facility]/dL [facility] LABOR[facility]ORY Estimated GFR 26 (L) >=60 [facility] mL/min/1.[address] LABORATORY Comment: This patient? s estimated [...] Organization Address City/State/ZIP Code Phon e Number [address] TSH (06/24/2020 10:57 AM EST) P athologist Signature TSH 2.03 0.27 - 4.20 [facility] mcIU/mL [facility] LABOR[facility]ORY Specimen Anatomical Collection Method Collection Time Receive d Time (Source) Location / / Volume Laterality Blood specimen 06/24/2020 10:57 0 (specimen) AM EST 11:09 AM EST Resulting Agency Comment Spec In Lab Donell Hernandez MD CHEMISTRY ORDERABLES Performing Organization Address City/[facility]/ZIP Code Phon e Number [address] (ABNORMAL) Hemoglobin A1c (06/24/2020 10:57 AM EST) Analysis Performed At Patho logist Time Signature Hemoglobin A1C 6.4 (H) 4.3 - 5.6 [facility] [...] Mellitus, Diabetes Care 2013; 36: Suppl. 1, S67-29 Est Avg Gluc 136 mg/dL [facility] LABORATORY Comment: eAG equivalents for HbA1c [...] into estimated average glucose values. ??Diabetes Care 2008:31(8):2398-1949. Specimen Anatomical Collection Method Collection Time Receive d Time (Source) Location / / Volume Laterality Blood specimen 06/24/2020 10:57 0 (specimen) AM EST 11:09 AM EST Resulting Agency Comment Spec In Lab Donell Hernandez MD CHEMISTRY ORDERABLES Performing Organization Address City/State/[place] [address] documented in this encounter Visit Diagnoses Diagnosis Type 2 diabetes mellitus with hyperglyce maki, with long-term current use of insulin documented in this encounter Care Teams Configuration Management Specialist Relationship Specialty Start Date End Date Violetta Sanford MD PCP - General 04/02/14 [address] [place] [address] documented as of this encounter
--- OUTSIDE RECORDS SUMMARY | 2022-06-16 12:26 | XMS_ITS | Encounter Summary ---
:1955 Author Organization [facility] [place] [address] Care Team Providers Name Role Phone Violetta Sanford MD Primary Care Provider Encounter Details Date Type Department Care Team Description 08/03/2019 Ancillary Procedure Radiology Library at Violetta Sanford MD [facility] [address] [address] [phone] (Wo rk) Social History Tobacco Use Types [...] Rojas MD [facility] Neurology [place], [place] [address] (Wo rk) 06/29/2022 Appointment Cardiology Violetta Sanford M D [address] [id number] (Wo rk) 06/30/2022 Infusion Hematology and Oncology 07/14/2022 Infusion Hematology and Oncology 07/28/2022 Infusion Hematology and Oncology 08/11/2022 Infusion Hematology and Oncology 08/16/2022 Office Visit Audiology Mindy Moody AUD [facility] AUDIOLOGY DEPT [place], [place] [address] (Wo rk) 11/04/2022 Office Visit Rheumatology Dante Freedman PA [facility] RHEUMATOLOGY [place], [place] [address] (Wo rk) documented as of [...] Time Received Time / Laterality Volume Narrative [facility] - 11/04/2021 4:26 PM EDT This exam is auto-finalizing. It's purpo se is for storage only. Violetta Sanford MD IMG FILM LIBRARY ORDERABLES Performing Organization Address City/State/ZIP Code Phon e Number [place], [place] documented in this encounter Visit Diagnoses Not on filedocumented in this encounter Care Teams Aircraft Air Conditioning Mechanic Relationship Specialty Start Date End Date Violetta Sanford MD PCP - General 04/02/14 [address] [place] [address] documented as of this encounter
--- OUTSIDE RECORDS SUMMARY | 2022-06-16 12:26 | XMS_ITS | Encounter Summary ---
:1955 Author Organization [place] [address] Care Team Providers Name Role Phone Violetta Sanford MD Primary Care Provider Encounter Details Date Type Department Care Team Description 08/29/2019 Laboratory Appointment Lab [address] [place] [address] Social History Tobacco Use Types Packs/Day [...] Tyler Rojas MD [facility] Neurology [place], [place] [phone] (Wo rk) 06/29/2022 Appointment Cardiology Violetta Sanford M D [employer] [address] [place], [place] [address] (Wo rk) 06/30/2022 Infusion Hematology and Oncology 07/14/2022 Infusion Hematology and Oncology 07/28/2022 Infusion Hematology and Oncology 08/11/2022 Infusion Hematology and Oncology 08/16/2022 Office Visit Audiology Mindy Moody AUD [facility] AUDIOLOGY DEPT [place], [place] [address] (Wo rk) 11/04/2022 Office Visit Rheumatology Dante Freedman PA [facility] ER RHEUMATOLOGY [place], [place] [address] (Wo rk) documented as of [...] (08/29/2019 10:04 AM EST) Analysis Performed At [facility] Time Signature Hemoglobin A1C 7.9 (H) 4.3 - 5.6 [facility] [...] Mellitus, Diabetes Care 2013; 36: Suppl. 1, M47-29 Est Avg Gluc 179 mg/dL [facility] [...] Additional resources are available on [facility] website. Scooby MALDONADO, Nba J, Sydnee R, et al. ??Tr anslating the A1C assay into estimated average glucose values. ??Diabetes Care 2008:31(8):6278-3167. Specimen Anatomical Collection Method Collection Time Receive d Time (Source) Location / / Volume Laterality Blood specimen No Charge / 08/29/2019 10:04 0 (specimen) Unknown AM EST 11:19 AM EST Resulting Agency Comment Spec In Lab Donell Hernandez MD CHEMISTRY ORDERABLES Performing Organization Address City/[facility]/ZIP [facility] [place] [address] Lavender Tube HOLD (08/29/2019 10:04 AM EST) [facility] gist Method Time Signature Lavender Hold Sample in [facility] lab. [facility] LABORATORY Specimen Anatomical Collection Method Collection Time Receive d Time (Source) Location / / Volume Laterality Blood specimen No Charge / 08/29/2019 10:04 0 (specimen) Unknown AM EST 10:12 AM EST Donell Hernandez MD HEMATOLOGY ORDERABLES Performing Organization Address City/[facility] [place] [address] documented in this encounter Visit Diagnoses Not on filedocumented in this encounter Care Teams Cable Maker Relationship Specialty Start Date End Date Violetta Sanford MD PCP - General 04/02/14 [address] [place] [address] documented as of this encounter
--- OUTSIDE RECORDS SUMMARY | 2022-06-16 12:26 | XMS_ITS | Encounter Summary ---
:1955 Author Organization [facility] [place] [address] Care Team Providers Name Role Phone Violetta [...] annoying phantom pains/ ?pain Donell Hernandez MD [facility] Pain And management options [facility] Spine DR [facility] ENDOCRINOLOGY DEPT. [address] [place], [place] [address] [place] [phone] Phone: Fax: Referral ID Status Reason Start Date Expiration Date Visits V isits Requested Authorized [id number] Closed Pain Consult 08/29/2019 08/28/2020 1 1 Encounter Details Date Type Department Care Team Description 09/20/2019 Office Visit [facility] Shira Miller Ph antelver limb pain at [facility] TENSION WORKER [facility] [place] [address] [place] [address] [phone] (Wo rk) Social History Tobacco Use Types [...] Miller APRN - 09/20/2019 2:30 PM EST [facility] [...] that he can recall PROCEDURES/SURGERY BKA R 2010 BKA L ~ EVALUATIONS: TYPE DATE Orthopaedics [...] file Gets together: Not on file Attends jain service: Not on file Active member of [...] BELOW-KNEE performed by HENNA ROY JR at [facility] MAIN OR ??? PRO LAP, APPENDECTOMY 06/16/2013 LAPAROSCOPIC APPENDECTOMY performed by Angel Mccann MD at [facility] MAIN OR ??? US RENAL TRANSPLANT LEFT Left 06/26/2019 US Renal Transplant Left 06/26/2019 [facility] RAD ULTRASOUND ALLERGIES: Penicillins; Iftikhar inhibitors; Clindamycin hcl; Allergenic extracts; Ibuprofen; Levemir [insulin detemir]; and Sulfamethoxazole-trimethoprim MEDICATIONS: Medications 09/20/19 1432 Medication Sig Taking? fluticasone propionate (FLONASE) 50 mcg/actuation Hermann, Suspension INSTILL 2 SPRAYS INTO EACH NOSTRIL ONCE A DAY NEEDED Yes triamcinolone (NASACORT or NASACORT OTC) 55 mcg Aerosol, Hermann 2 sprays by Nasal route daily. Yes [...] Needle 1 Device by [facility]Non-Drug; Combo Route) route 3times daily. Yes atorvastatin [...] the lungs daily. Yes Miscellaneous Medical Supply Mis 4 Devices by [facility]Non-Drug; Combo Route) route daily. Rubber sheath for [...] you for this referral, Donell Hernandez MD [facility] [place] [address]. Shira Miller, MSN, SAW MAKER- C, TENSION WORKER Nurse Practitioner [facility] [address] [address] / [facility] documented in this encounter Plan of Treatment Upcoming Encounters Date Type Specialty Care Team Description 06/16/2022 Infusion Hematology and Oncology 06/21/2022 Office Visit Neurology Tyler Rojas MD [facility] Neurology [place], [place] [phone] (Wo rk) 06/29/2022 Appointment Cardiology Violetta Sanford M D [address] [place], [place] [phone] (Wo rk) 06/30/2022 Infusion Hematology and Oncology 07/14/2022 Infusion Hematology and Oncology 07/28/2022 Infusion Hematology and Oncology 08/11/2022 Infusion Hematology and Oncology 08/16/2022 Office Visit Audiology Mindy Moody AUD [facility] AUDIOLOGY DEPT [place], [place] [address] (Wo rk) 11/04/2022 Office Visit Rheumatology Dante Freedman PA [facility] RHEUMATOLOGY [place], [place] [address] (Wo rk) documented as of this encounter Visit Diagnoses Diagnosis Phantom limb pain Phantom limb (syndrome) documented in this encounter Care Teams Cut Off Man Relationship Specialty Start Date End Date Violetta Sanford MD PCP - General 04/02/14 [address] [place], [place] [address] documented as of this encounter
--- OUTSIDE RECORDS SUMMARY | 2022-06-16 12:26 | XMS_ITS | Encounter Summary ---
:1955 Author Organization [facility] [place] [address] Care Team Providers Name Role Phone Violetta Sanford MD Primary Care Provider Reason for Referral Consultation (Routine) - Closed Specialty Diagnoses / Procedures Referred By Contact Refer red To Contact Endocrinology Diagnoses Type 2 diabetes mellitus with hyperglycemia, with long-term current use of insulin Donell Hernandez MD Kline, Erika L, [facility]PH[facility] D [facility] [place] [address] [place] [address] Referral ID Status Reason Start Date Expiration Date Visits V isits Requested Authorized [id number] Closed Consult, 09/12/2019 09/11/2020 1 1 Test & Treat Encounter Details Date Type Department Care Team Description 09/12/2019 Orders Only Endocrinology at [facility] Donell Hardin, Type 2 diabetes [facility] Giovana [place]ler [place] [address] [facility], with [phone] CENTER long-term current use ENDOCRINOLOGY of insulin DEPT. [place], [place] [address] Social History Tobacco Use Types [...] Rojas MD [facility] Neurology [place], [place] [phone] (Wo rk) 06/29/2022 Appointment Cardiology Violetta Sanford M D [address] [place], [place] [address] (Wo rk) 06/30/2022 Infusion Hematology and Oncology 07/14/2022 Infusion Hematology and Oncology 07/28/2022 Infusion Hematology and Oncology 08/11/2022 Infusion Hematology and Oncology 08/16/2022 Office Visit Audiology Mindy Moody AUD [facility] AUDIOLOGY DEPT [place], [place] [address] (Wo rk) 11/04/2022 Office Visit Rheumatology Dante Freedman PA [facility] RHEUMATOLOGY [place], [place] [address] (Wo rk) Scheduled Referrals Name [...] insulin documented in this encounter Care Teams Lime Hide Inspector Relationship Specialty Start Date End Date Violetta Sanford MD PCP - General 04/02/14 [address] [place], [place] [id number] documented as of this encounter
--- OUTSIDE RECORDS SUMMARY | 2022-06-16 12:26 | XMS_ITS | Encounter Summary ---
:1955 Author Organization [facility] [place] [address] Care Team Providers Name Role Phone Violetta Sanford MD Primary Care Provider Reason for Visit Consultation (Routine) - Specialty Diagnoses / Procedures Referred By Contact Refer red To Contact Rheumatology Diagnoses Pain in unspecified hand Violetta Sanford MD [facility] Rheumatology [address] [place] [address] [address] [place] [phone] Referral ID Status Reason Start Date Expiration Date Visits V isits Requested Authorized [id number] Consult, Test 04/23/2020 10/21/2020 6 6 [facility] PCP Updated and/or Approved Encounter Details Date Type Department Care Team Description 05/08/2020 Office [address] Rhe[address]ology at [facility] Tano, Osteoarthritis of multiple j oints, unspecified osteoarthritis type; [facility] DA Young Paresthesia of both hands; Drive [facility] H/O kidney transplant; [facility] [address] [phone] RHEUMATOLOGY [phone] [place] [address] Social History Tobacco Use Types Packs/Day Years [...] of that at night he applies a xxzq-dij-kxjlppy treatment of vitamin E oil. It is [...] diabetes COPD stage III, obesity, and bilateral nmcku-qqd-yvrz amputations with prostheses. He utilizes a scooter [...] Blood-Glucose Sensor (Dexcom G6 Sensor) Device by [facility].(Non-Drug; Combo Route) route. Sensor, hire car driver andtransmitter ??? calciTRIoL (Rocaltrol) 0.5 mcg Capsule [...] 1 ??? fluticasone propionate (FLONASE) 50 mcg/actuation [place], Suspension INSTILL 2 SPRAYS INTO EACH NOSTRIL ONCE A DAY NEEDED ??? triamcinolone (NASACORT or NASACORT OTC) 55 mcg Aerosol, [place] 2 sprays by Nasal route daily. 1 [...] gauge x 1/2 Needle 1 Device by [facility].(Non- Drug; Combo Route) route 3 times daily. [...] lungs daily. 1 ??? Miscellaneous Medical Supply [facility] 4 Devices by [facility].(Non-Drug; Combo Route) route daily. Rubber sheath for [...] 06/26/2019 [facility] RAD ULTRASOUND Family Hx: History reviewed. No [...] the use of a paraffin machine in theafternoon to help with his hand aches and [...] by much. He will discuss with his poultry breeder whether or not a trial of chondroitin sulfate izab-syx-iznxhsusj okay with nephrology. He may find this [...] Tyler Rojas MD [facility] Neurology [place], [place] [phone] (Wo rk) 06/29/2022 Appointment Cardiology Violetta Sanford M D [address] [place] [address] (Wo rk) 06/30/2022 Infusion Hematology and Oncology 07/14/2022 Infusion Hematology and Oncology 07/28/2022 Infusion Hematology and Oncology 08/11/2022 Infusion Hematology and Oncology 08/16/2022 Office Visit Audiology Mindy Moody AUD [facility] AUDIOLOGY DEPT [place], [place] [address] (Wo rk) 11/04/2022 Office Visit Rheumatology Dante Freedman PA [facility] RHEUMATOLOGY [place], [place] [address] (Wo rk) documented as of this encounter Visit Diagnoses Diagnosis Osteoarthritis of multiple joints, unspe cified osteoarthritis type Paresthesia of both hands H/O kidney transplant Kidney replaced by transplant Immunosuppression Unspecified disorder of immune mechanism documented in this encounter Care Teams Net Lead Developer Relationship Specialty Start Date End Date Violetta Sanford MD PCP - General 04/02/14 [address] [place] [address] documented as of this encounter
--- OUTSIDE RECORDS SUMMARY | 2022-06-16 12:26 | XMS_ITS | Encounter Summary ---
:1955 Author Organization [facility] [place] [address] Care Team Providers Name Role Phone Violetta Sanford MD Primary Care Provider Reason for Visit Reason Comments Medication Refill Encounter Details Date Type Department Care Team Description 02/26/2020 Refill Solid Organ Transplant at [facility] lucinda Desir, Transplanted kidney [facility] [place] [address] TRANSPLANT SURGERY [phone] [place], [place] [address] (Oscar escobedo) Social History Tobacco [...] MD [facility] Dr [place]i [place] [phone] (Wo rk) 06/29/2022 Appointment Cardiology Violetta Sanford M D [address] [place] [address] (Oscar escobedo) 06/30/2022 Infusion Hematology and Oncology 07/14/2022 Infusion Hematology and Oncology 07/28/2022 Infusion Hematology and Oncology 08/11/2022 Infusion Hematology and Oncology 08/16/2022 Office Visit Audiology Mindy Moody AUD [facility] AUDIOLOGY [place], [place] 0[address] (Wo rk) 11/04/2022 Office Visit Rheumatology Dante Freedman, DA [facility] RHEUMATOLOGY [place], [place] [address] (Wo rk) documented as of this encounter Visit Diagnoses Diagnosis Transplanted kidney Kidney replaced by transplant documented in this encounter Care Teams Laborer Cement Gun Placing Relationship Specialty Start Date End Date Violetta Sanford MD PCP - General 04/02/14 [address] [place] [address] documented as of this encounter
--- OUTSIDE RECORDS SUMMARY | 2022-06-16 12:26 | XMS_ITS | Encounter Summary ---
:1955 Author Organization [facility] [place] [address] Care Team Providers Name Role Phone Violetta Sanford MD Primary Care Provider Reason for Visit Reason Onset Date Comments Medication Refill 09/02/2020 Encounter Details Date Type Department Care Team Description 09/02/2020 Refill Solid Organ Transplant at [facility] Alejo france MD [facility] nayeli [place] [address] [place] [address] [phone] (Oscar escobedo) Social History Tobacco Use Types [...] Rojas MD [facility] Neurology [place], [place] [phone] (Wo rk) 06/29/2022 Appointment Cardiology Violetta Sanford M D [address] [place], [place] [address] (Oscar rk) 06/30/2022 Infusion Hematology and Oncology 07/14/2022 Infusion Hematology and Oncology 07/28/2022 Infusion Hematology and Oncology 08/11/2022 Infusion Hematology and Oncology 08/16/2022 Office Visit Audiology Mindy Moody, [facility] AUDIOLOGY [place], [place] [address] (Wo rk) 11/04/2022 Office Visit Rheumatology Dante Freedman, PA [facility] RHEUMATOLOGY [place], [place] 0[address] (Wo rk) documented as of this encounter Visit Diagnoses Not on filedocumented in this encounter Care Teams Head Sugar Reprocess Operator Relationship Specialty Start Date End Date Violetta Sanford MD PCP - General 04/02/14 [address] [place] [address] documented as of this encounter
--- OUTSIDE RECORDS SUMMARY | 2022-06-16 12:26 | XMS_ITS | Encounter Summary ---
:1955 Author Organization [facility] [place] [address] Care Team Providers Name Role Phone Violetta Sanford MD Primary Care Provider Encounter Details Date Type Department Care Team Description 04/07/2020 Office Visit Solid Organ Chobanian, H/O kidney tilley splant; [facility] Alejo Desir MD CKD (chronic kidney disease) stage 4, GF R 15-29 ml/min; [facility] Aftercare following organ transplant; [facility] DR Manda agrawal; [place], [place] TRANSPLANT Prophylactic im munotherapy [phone] SURGERY [phone] [place], [place] [address] Social History Tobacco Use Types [...] 1955 Transplant ID: Date: 04/07/2020 Patient: Leroy Torres Transplant Date: 02/29/08 Organ(s) Kidney [place] organ diagnosis: Diabetes Mellitus - Type II [...] related that when he was admitted to [facility] in October 2018 they had found [...] BELOW-KNEE performed by HENNA GAMINO JR at [facility] MAIN OR ??? PRO LAP, APPENDECTOMY 06/16/2013 LAPAROSCOPIC APPENDECTOMY performed by Angel Mccann MD at [facility] MAIN OR ??? US RENAL TRANSPLANT LEFT Left 06/26/2019 US Renal Transplant Left 06/26/2019 [facility] RAD ULTRASOUND Healthcare maintenance for [...] done 03/21/2015 which was normal. Due again!! [place] kidney ultrasound looking for renal cell CA, [...] 3 ??? fluticasone propionate (FLONASE) 50 mcg/actuation [place], Suspension, INSTILL 2 SPRAYS INTO EACH NOSTRIL ONCE A DAY NEEDED, Disp: , Rfl: ??? triamcinolone (NASACORT or NASACORT OTC) 55 mcg Aerosol, [place], 2 sprays by Nasal route daily., Disp: [...] gauge x 1/2 Needle, 1 Device by [facility]Non- Drug; Combo Route) route 3 times daily., [...] , Rfl: 1 ??? Miscellaneous Medical Supply [facility], 4 Devices by [facility].(Non-Drug; Combo Route) route daily. Rubbersheath for leg [...] from 04/07/2020 in Solid Organ Transplant [place] [facility] Weight (!) 137 kg (302 lb) Temp [...] 30 min in direct face to face mortgage loan counselor. documented in this encounter Plan of Treatment Upcoming Encounters Date Type Specialty Care Team Description 06/16/2022 Infusion Hematology and Oncology 06/21/2022 Office Visit Neurology Tyler Rojas MD [facility] Medical [facility] Neurology [place], [place] [address] (Oscar escobedo) 06/29/2022 Appointment Cardiology Violetta Sanford M D [address] [address] (Wo rk) 06/30/2022 Infusion Hematology and Oncology 07/14/2022 Infusion Hematology and Oncology 07/28/2022 Infusion Hematology and Oncology 08/11/2022 Infusion Hematology and Oncology 08/16/2022 Office Visit Audiology Mindy Moody AUD [facility] AUDIOLOGY [place], [place] [address] (Wo rk) 11/04/2022 Office Visit Rheumatology Dante Freedman, DA [facility] ER RHEUMATOLOGY [place], [place] [address] (Wo rk) documented as of this encounter Visit Diagnoses Diagnosis H/O kidney transplant Kidney replaced by transplant CKD (chronic kidney disease) stage 4, GF R 15-29 ml/min Chronic kidney disease, Stage IV (severe ) Aftercare following organ transplant Other hypervolemia Prophylactic immunotherapy Need for prophylactic immunotherapy documented in this encounter Care Teams Incident Response Lead Relationship Specialty Start Date End Date Violetta Sanford MD PCP - General 04/02/14 [address] [place] [address] documented as of this encounter
--- OUTSIDE RECORDS SUMMARY | 2022-06-16 12:26 | XMS_ITS | Encounter Summary ---
:1955 Author Organization [facility] [place] [address] Care Team Providers Name Role Phone Violetta Sanford MD Primary Care Provider Encounter Details Date Type Department Care Team Description 09/02/2020 Notes Only Solid Organ Transpla nt at [facility] [place] [address] Social History Tobacco Use Types Packs/Day [...] for titration Insurance: [employer] Medicare RX Phone: Adobe Developer: [employer] Reference #: Outcome: Approved through 07/24/2021 documented in this encounter Plan of Treatment Upcoming Encounters Date Type Specialty Care Team Description 06/16/2022 Infusion Hematology and Oncology 06/21/2022 Office Visit Neurology Tyler Rojas MD [facility] Neurology [place], [place] [phone] (Wo rk) 06/29/2022 Appointment Cardiology Violetta Sanford M D [address] [place], [place] [phone] (Wo rk) 06/30/2022 Infusion Hematology and Oncology 07/14/2022 Infusion Hematology and Oncology 07/28/2022 Infusion Hematology and Oncology 08/11/2022 Infusion Hematology and Oncology 08/16/2022 Office Visit Audiology Mindy Moody AUD [facility] AUDIOLOGY [place], [place] [address] (Wo rk) 11/04/2022 Office Visit Rheumatology Dante Freedman, DA [facility] RHEUMATOLOGY [place], [place] [address] ( rk) documented as of this encounter Visit Diagnoses Not on filedocumented in this encounter Care Teams Manager Fiber Relationship Specialty Start Date End Date Violetta Sanford MD PCP - General 04/02/14 [address] [place], [place] [address] documented as of this encounter
--- OUTSIDE RECORDS SUMMARY | 2022-06-16 12:26 | XMS_ITS | Encounter Summary ---
:1955 Author Organization [facility] Address [facility] [place] [address] Care Team Providers Name Role Phone Violetta Sanford MD Primary Care Provider Reason for Visit Reason Onset Date Comments Medication Refill 07/24/2020 Encounter Details Date Type Department Care Team Description 07/24/2020 Refill Cardiology at [facility] J Luis Quispe MD Medication Refill [facility] [place] [address] CARDIOLOGY DEPT. [phone] [place], [place] [address] (Wo rk) Social History Tobacco [...] note to schedulers as well. Jen Garrett industrial staff nurse Clinic at [facility] [phone] documented in this encounter Plan of Treatment Upcoming Encounters Date Type Specialty Care Team Description 06/16/2022 Infusion Hematology and Oncology 06/21/2022 Office Visit Neurology Tyler Rojas MD [facility] Neurology [place] [address] (Wo rk) 06/29/2022 Appointment Cardiology Violetta Sanford M D [address] [place], [place] [address] (Wo rk) 06/30/2022 Infusion Hematology and Oncology 07/14/2022 Infusion Hematology and Oncology 07/28/2022 Infusion Hematology and Oncology 08/11/2022 Infusion Hematology and Oncology 08/16/2022 Office Visit Audiology Mindy Moody AUD [facility] AUDIOLOGY [place], [place] [address] (Wo rk) 11/04/2022 Office Visit Rheumatology Dante Freedman PA [facility] RHEUMATOLOGY [place], [place] [address] (Wo rk) documented as of this encounter Visit Diagnoses Diagnosis Chronic atrial fibrillation Atrial fibrillation PAF (paroxysmal atrial fibrillation) Atrial fibrillation documented in this encounter Care Teams Doctor Of Chiropractic Relationship Specialty Start Date End Date Violetta Sanford MD PCP - General 04/02/14 [address] [place], [place] [address] documented as of this encounter
--- OUTSIDE RECORDS SUMMARY | 2022-06-16 12:26 | XMS_ITS | Encounter Summary ---
:1955 Author Organization [facility] [address] Care Team Providers Name Role Phone Violetta Sanford MD Primary Care Provider Encounter Details Date Type Department Care Team Description 09/01/2020 Laboratory Appointment Lab 3L [facility] H/O kidney transplant; [facility] CKD (chronic kidney disease) stage 4, GFR 15-29 ml/min; [facility] Type 2 di abetes mellitus with hyperglycemia, with long- [place] [address] Social History Tobacco Use Types Packs/Day Years [...] Tyler Rojas MD [facility] Neurology [place], [place] [phone] (Wo gregg) 06/29/2022 Appointment Cardiology Violetta Sanford M D [address] [place] [address] (Oscar escobedo) 06/30/2022 Infusion Hematology and Oncology 07/14/2022 Infusion Hematology and Oncology 07/28/2022 Infusion Hematology and Oncology 08/11/2022 Infusion Hematology and Oncology 08/16/2022 Office Visit Audiology Mindy Moody AUD [facility] AUDIOLOGY DEPT [place], [place] [address] (Wo rk) 11/04/2022 Office Visit Rheumatology Dante Freedman PA [facility] RHEUMATOLOGY [place], [place] [address] (Wo rk) documented as of [...] P athologist Signature Neutrophils % 58.5 % [facility] Neutr Abs (ANC) 4.65 1.70 - [facility] 6.10 [facility] x10(3)/[facility] LABORATORY Lymphocytes % 28.5 % [facility] Lymphocytes Abs 2.3 0.9 - 3.2 [facility] x10(3)/[facility] LABORATORY Monocytes % 8.4 % [facility] Monocyte Abs 0.7 0.3 - 0.9 [facility] x10(3)/[facility] LABORATORY Eosinophils % 3.7 % [facility] Eosinophils Abs 0.3 0.0 - 0.4 [facility] x10(3)/[facility] LABORATORY Basophils % 0.6 % [facility] Basophils Abs 0.0 0.0 - 0.1 [facility] x10(3)/[facility] LABORATORY Immature Gran % 0.30 % [facility] Comment: Immature granulocytes(IG's)percentage an d absolute count will include metamyelocytes, myelocytes, and promyelo cytes. Blood smears from CBCs yielding IG's will be scanned manually for concor dance. If this scan disagrees with the automated IG or if promyelocytes are not ed, a manual differential will be performed. Courtney Gran Abs 0.02 0.00 - 0.04 x10(3)/[facility] LABORATORY Specimen Anatomical Collection Method Collection Time Receive d Time (Source) Location / / Volume Laterality Blood specimen 09/01/2020 9:39 AM 021 9:49 (specimen) EST AM EST Resulting Agency Comment Spec In Lab Alejo Garnett MD HEMATOLOGY ORDERABLES Performing Organization Address City/State/[place] [address] (ABNORMAL) Hemogram (09/01/2020 9:39 AM EST) Analysis Performed At Patho logist Time Signature WBC 7.9 4.0 - 9.5 [facility] x10(3)/[facility] LABORATORY RBC 3.13 (L) 4.58 - [facility] 5.54 [facility] x10(6)/[facility] LABORATORY Hemoglobin 9.5 (L) 13.7 - [facility] 16.5 gm/dL [facility] Hematocrit 29.2 (L) 40.5 - [facility] 48.5 % [facility] MCV 93.3 (H) 82.9 - [facility] 93.1 [facility] LABORATORY MCH 30.4 27.5 - [facility] 32.1 pg [facility] MCHC 32.5 32.0 - [facility] 35.7 gm/dL [facility] Platelets 207 145 - 357 [facility] x10(3)/[facility] LABORATORY RDWSD 46.5 (H) 36.0 - [facility] 45.0 [facility] LABORATORY RDWCV 13.8 11.4 - [facility] 13.8 [facility] LABORATORY MPV 8.5 7.6 - 12.9 [facility] LABORATORY nRBC % Auto 0.0 % [facility] nRBC Abs Auto 0.000 0.000 - [facility] 0.000 [facility] x10(3)/[facility] LABORATORY Specimen Anatomical Collection Method Collection Time Receive d Time (Source) Location / / Volume Laterality Blood specimen 09/01/2020 9:39 AM 021 9:49 (specimen) EST AM EST Resulting Agency Comment Spec In Lab lAejo Garnett MD HEMATOLOGY ORDERABLES Performing Organization Address City/State/[place] [address] (ABNORMAL) Hemoglobin A1c (09/01/2020 9:39 AM EST) Analysis Performed At [facility] Signature Hemoglobin A1C 6.5 (H) 4.3 - 5.6 [facility] % [facility] Comment: Reference Range: 4.3 - [...] Mellitus, Diabetes Care 2013; 36: Suppl. 1, A67-39 Est Avg Gluc 140 mg/dL [facility] Comment: eAG equivalents for HbA1c percentages: HbA1c(%) ?eAG(mg/dL) 6.0 ?126 6.5 ?140 7.0 ?154 7.5 ?169 8.0 ?183 8.5 ?197 9.0 ?212 9.5 ?226 10.0 ? 240 Limitations: The eAG calculation has not been validated on women, individuals below 18 years old and above 70 years old, and individuals with hemoglobinopathies. Additional resources are available on [facility] ADA website. Scooby MALDONADO, Nba J, Sydnee R, et al. ??Tr anslating the A1C assay into estimated average glucose values. ??Diabetes Care 2008:31(8):7316-2431. Specimen Anatomical Collection Method Collection Time Receive d Time (Source) Location / / Volume Laterality Blood specimen 09/01/2020 9:39 AM 021 9:49 (specimen) EST AM EST Resulting Agency Comment Spec In Lab Donell Hernandez MD CHEMISTRY ORDERABLES Performing Organization Address City/State/[place] [address] Cholesterol, total (09/01/2020 9:39 AM EST) athologist Signature Chol, Total 92 mg/dL [facility] Comment: Lower Risk: <200 mg/dL Average Risk: 200-239 mg/dL Higher Risk: >ws=830 mg/dL Lipid Interpretation See Note [facility] Comment: Lipid management should be guided by a p atient? s ASCVD risk, goals and preferences. ACC/AHA Guidelines recommend high intens ity statin if clinical ASCVD or LDL greater than or equal to 190 mg/dL. http://TechnoSpin.com/IZO-XCZ-Nzgntiavy Adults aged 40-75 with LDL 70-189 mg/dL should have their 10 year ASCVD risk estimated with the ACC/AHA ASCVD risk es timator http://tools.acc.org/HTCVJ-Gvip-Rizajxkk r/ Statin should be discussed if risk [...] Organization Address City/State/[place] [address] Reticulocyte Count (09/01/2020 9:39 AM EST) athologist Signature Retic Ct % 2.0 0.7 - 2.6 [facility]ORAT[facility] Retic Ct Abs 0.060 0.030 - [facility] 0.120 [facility] x10(6)/[facility] LABORATORY Immature Retic% 12.1 0.0 - 15.6 [facility]OR[facility]ORY Reticulated Hgb 33.8 31.3 - [facility] 40.2 pg [facility] Specimen Anatomical Collection Method Collection Time Receive d Time (Source) Location / / Volume Laterality Blood specimen 09/01/2020 9:39 AM 9:49 (specimen) EST AM EST Resulting Agency Comment Spec In Lab Alejo Garnett MD HEMATOLOGY ORDERABLES Performing Organization Address City/State/ZIP Code Phon e Number [address] Tacrolimus level (09/01/2020 9:39 AM EST) P athologist Signature Tacrolimus Lvl 4.0 ng/mL [facility] [...] Organization Address City/State/ZIP Code Phon e Number [address] Uric acid (09/01/2020 9:39 AM EST) P athologist Signature Uric Acid 7.3 3.5 - 8.5 [facility] mg/dL [facility] Specimen Anatomical Collection Method Collection Time Receive d Time (Source) Location / / Volume Laterality Blood specimen 09/01/2020 9:39 AM 021 9:49 (specimen) EST AM EST Resulting Agency Comment Spec In Lab Alejo Garnett MD CHEMISTRY ORDERABLES Performing Organization Address City/[facility]/ZIP Code Phon e Number [address] Phosphorus (09/01/2020 9:39 AM EST) P athologist Signature Phosphorus 3.6 2.5 - 4.5 [facility] mg/dL [facility] Specimen Anatomical Collection Method Collection Time Receive d Time (Source) Location / / Volume Laterality Blood specimen 09/01/2020 9:39 AM 9:49 (specimen) EST AM EST Resulting Agency Comment Spec In Lab Alejo Garnett MD CHEMISTRY ORDERABLES Performing Organization Address City/[facility]/ZIP Code Phon e Number [address] Magnesium (09/01/2020 9:39 AM EST) athologist Signature Magnesium 0.73 0.69 - 1.07 [facility] mmol/L [facility] Specimen Anatomical Collection Method Collection Time Receive d Time (Source) Location / / Volume Laterality Blood specimen 09/01/2020 9:39 AM 9:49 (specimen) EST AM EST Resulting Agency Comment Spec In Lab Alejo Garnett MD CHEMISTRY ORDERABLES Performing Organization Address City/[facility] [address] (ABNORMAL) Comprehensive metabolic panel (non-fasting) (09/01/2020 9:39 AM EST) athologist Signature Glucose Lvl 144 65 - 199 [facility] mg/dL [facility] Comment: Diabetes: >=200 mg/dL plus symp toms BUN 39 (H) 10 - 20 mg/dL [facility] Creatinine 2.54 (H) 0.80 - 1.50 mg/dL [facility] [...] Anion Gap 10 5 - 15 mmol/L [facility] Calcium 9.3 8.5 - 10.5 mg/dL [facility] Total Protein 7.0 6.1 - 8.0 gm/dL [facility] Albumin 3.4 3.2 - 5.2 gm/dL [facility] AST 12 0 - 39 unit/L [facility] ALT 11 0 - 55 unit/L [facility] Alk Phos 112 40 - 130 unit/L [facility] Total Bilirubin 0.2 0.2 - 1.3 mg/dL [facility] Estimated GFR 25 (L) >=60 mL/min/1.73 [...] Organization Address City/State/[place] [address] documented in this encounter Visit Diagnoses Diagnosis H/O kidney transplant Kidney replaced by transplant CKD (chronic kidney disease) stage 4, GF R 15-29 ml/min Chronic kidney disease, Stage IV (severe ) Type 2 diabetes mellitus with hyperglyce maki, with long-term current use of insulin documented in this encounter Care Teams Commercial Credit Head Relationship Specialty Start Date End Date Violetta Sanford MD PCP - General 04/02/14 [address] [place] [address] documented as of this encounter
--- OUTSIDE RECORDS SUMMARY | 2022-06-16 12:26 | XMS_ITS | Encounter Summary ---
:1955 Author Organization [facility] [place] [address] Care Team Providers Name Role Phone Violetta Sanford MD Primary Care Provider Reason for Visit Reason Comments Medication Refill Encounter Details Date Type Department Care Team Description 05/12/2020 Refill Endocrinology at [facility] Donell Hernandez MD [facility] [place] [address] ENDOCRINOLOGY DEPT. [phone] [place], [place] [address] (Wo rk) Social History Tobacco [...] MD [facility] Dr [place], [place] [phone] (Wo rk) 06/29/2022 Appointment Cardiology Violetta Sanford M D [address] [place] [address] (Oscar rk) 06/30/2022 Infusion Hematology and Oncology 07/14/2022 Infusion Hematology and Oncology 07/28/2022 Infusion Hematology and Oncology 08/11/2022 Infusion Hematology and Oncology 08/16/2022 Office Visit Audiology Mindy Moody AUD [facility] AUDIOLOGY [place], [place] [address] (Wo rk) 11/04/2022 Office Visit Rheumatology Dante Freedman, PA [facility] RHEUMATOLOGY [place], [place] [address] (Wo rk) documented as of this encounter Visit Diagnoses Not on filedocumented in this encounter Care Teams Sports Manager Relationship Specialty Start Date End Date Violetta Sanford MD PCP - General 04/02/14 [address] [place] [address] documented as of this encounter
--- OUTSIDE RECORDS SUMMARY | 2022-06-16 12:26 | XMS_ITS | Encounter Summary ---
:1955 Author Organization [facility] [place] [address] Care Team Providers Name Role Phone Violetta Sanford MD Primary Care Provider Reason for Referral Consultation (Routine) - Specialty Diagnoses / Procedures Referred By Contact Refer red To Contact Neurology Diagnoses Paresthesia of both hands Dante Freedman PA [facility] Neurology [address] [place] [phone] [place] [address] Referral ID Status Reason Start Date Expiration Date Visits V isits Requested Authorized [id number] Consult, 05/15/2020 11/11/2020 1 1 Test & Treat Encounter Details Date Type Department Care Team Description 05/15/2020 Orders Only Rheumatology at [facility] Dante Freedman Paresthesia of both [facility] DA Gilbert hands (Primary Dx) [place] [address] RHEUMATOLOGY [place], [place] [address] Social History Tobacco Use Types [...] Rojas MD [facility] Neurology [place], [place] [phone] (Wo rk) 06/29/2022 Appointment Cardiology Violetta Sanford M D [address] [place] [address] (Wo rk) 06/30/2022 Infusion Hematology and Oncology 07/14/2022 Infusion Hematology and Oncology 07/28/2022 Infusion Hematology and Oncology 08/11/2022 Infusion Hematology and Oncology 08/16/2022 Office Visit Audiology Mindy Moody AUD [facility] AUDIOLOGY DEPT [place], [place] [address] (Wo rk) 11/04/2022 Office Visit Rheumatology Dante Freedman PA [facility] RHEUMATOLOGY [place], [place] [address] (Wo rk) Scheduled Referrals Name Type Priority Associated Diagnoses Order S chedule Referral to Outpatient Referral Routine Paresthesia of both O rdered: Neurology hands 05/15/2020 documented as of this encounter Visit Diagnoses Diagnosis Paresthesia of both hands - Primary documented in this encounter Care Teams Director Outcomes Relationship Specialty Start Date End Date Violetta Sanford MD PCP - General 04/02/14 [address] [place] [address] documented as of this encounter
--- OUTSIDE RECORDS SUMMARY | 2022-06-16 12:26 | XMS_ITS | Encounter Summary ---
:1955 Author Organization [facility] [place] [address] Care Team Providers Name Role Phone Violetta Sanford MD Primary Care Provider Encounter Details Date Type Department Care Team Description 10/18/2019 Notes Only Cardiology at [facility] J Luis [facility]ispe [facility] [place] [address] CARDIOLOGY DEPT. [phone] [place], [place] [address] (Wo rk) Social History Tobacco [...] in 2007 referred to cardiology clinic for intermediate management of PAF. He is in NSR today.He has no significant history of CAD. He has had a prior stress echo that was normal in 2015. He denies any history of CA. ?? Apparently during a hospitalization for PNA [...] Rojas MD [facility] Neurology [place], [place] [address] ([facility]) 06/29/2022 Appointment Cardiology Violetta Sanford M D [address] [place] [address] ([facility]) 06/30/2022 Infusion Hematology and Oncology 07/14/2022 Infusion Hematology and Oncology 07/28/2022 Infusion Hematology and Oncology 08/11/2022 Infusion Hematology and Oncology 08/16/2022 Office Visit Audiology Mindy Moody AUD [facility] AUDIOLOGY DEPT [place], [place] [address] ([facility]) 11/04/2022 Office Visit Rheumatology Dante Freedman PA [facility] RHEUMATOLOGY [place], [place] [address] (Wo rk) documented as of this encounter Visit Diagnoses Not on filedocumented in this encounter Care Teams Ship Captain Relationship Specialty Start Date End Date Violetta Sanford MD PCP - General 04/02/14 [address] [place] [address] documented as of this encounter
--- OUTSIDE RECORDS SUMMARY | 2022-06-16 12:26 | XMS_ITS | Encounter Summary ---
:1955 Author Organization [facility] [place] [address] Care Team Providers Name Role Phone Violetta [...] annoying phantom pains/ ?pain Donell Hernandez MD [facility] Pain And management options [facility] Spine [facility] ENDOCRINOLOGY DEPT. [address] [address] Phone: Fax: Referral ID Status Reason Start Date Expiration Date Visits V isits Requested Authorized [id number] Closed Pain Consult 08/29/2019 08/28/2020 1 1 Reason for Visit Reason Comments Follow-up Consultation (Routine) - Specialty Diagnoses / Procedures Referred By Contact Refer red To Contact Endocrinology Diagnoses Transplanted kidney CKD (chronic kidney disease) stage 4, GFR 15-29 ml/min Type 2 diabetes mellitus with diabetic nephropathy, with long-term current use of insulin Alejo Garnett Comi, Richard J, MD MD [facility] D R ENDOCRINOLOGY [place] [address] Referral ID Status Reason Start Date Expiration Visits Visits Date Requested Authorized [id number] Specialty 07/09/2019 07/08/2020 10 10 Service Requested Encounter Details Date Type Department Care Team Description 08/29/2019 Office Visit Endocrinology at [facility] Donell Hernandez, Type 2 diabetes mellitus wit h hyperglycemia, with long-term current use of insulin; [facility] Rhinorrhea; [facility] Type 2 diabetes mellitus wit h diabetic neuropathy, with long-term current [place] [address] CENTER [phone] ENDOCRINOLOGY DEPT. 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 1 ??? Miscellaneous Medical Supply [facility] [...] Est Avg Gluc 179 mg/dL Results for LEROY DAILEY ( ) as of 08/29/2019 17:49 Ref. [...] Office Visit Neurology Tyler Rojas MD [facility] Medical [facility] Neurology [place], [place] [phone] (Oscar escobedo) 06/29/2022 Appointment Cardiology Violetta Sanford M D [address] [place] [address] (Oscar escobedo) 06/30/2022 Infusion Hematology and Oncology 07/14/2022 Infusion Hematology and Oncology 07/28/2022 Infusion Hematology and Oncology 08/11/2022 Infusion Hematology and Oncology 08/16/2022 Office Visit Audiology Mindy Moody AUD [facility] AUDIOLOGY DEPT [place], [place] [address] (Wo rk) 11/04/2022 Office Visit Rheumatology Dante Freedman PA [facility] DR [place] [place], [place] [address] (Wo rk) Scheduled Orders Name [...] encounter Results TSH (06/24/2020 10:57 AM EST) athologist Signature TSH 2.03 0.27 - 4.20 JERE CUEVASMELI mcIU/mL [facility] Specimen Anatomical Collection Method Collection Time Receive d Time (Source) Location / / Volume Laterality Blood specimen 06/24/2020 10:57 0 (specimen) AM EST 11:09 AM EST Resulting Agency Comment Spec In Lab Donell Hernandez MD CHEMISTRY ORDERABLES Performing Organization Address City/State/ZIP Code Phon e Number [facility] [place] [address] (ABNORMAL) Creatinine (06/24/2020 10:57 AM EST) Analysis Performed At Patho logis Time Signature Creatinine 2.48 (H) 0.80 - JERE GARRISON 1.50 mg/dL [facility] Estimated GFR 26 (L) >=60 JERE MELI mL/min/1.7 [facility] 3 ?? [facility] Comment: This patient? s estimated glomerular [...] City/State/ZIP Code Phon e Number [place] [id number] [address] LAB[address] (ABNORMAL) Hemoglobin A1c (06/24/2020 10:57 AM EST) Analysis Performed At [facility] Time Signature Hemoglobin A1C 6.4 (H) 4.3 - 5.6 [facility] [...] Mellitus, Diabetes Care 2013; 36: Suppl. 1, H77-63 Est Avg Gluc 136 mg/dL [facility] Comment: eAG equivalents for HbA1c percentages: HbA1c(%) ?eAG(mg/dL) 6.0 ?126 6.5 ?140 7.0 ?154 7.5 ?169 8.0 ?183 8.5 ?197 9.0 ?212 9.5 ?226 10.0 ? 240 Limitations: The eAG calculation has not been validated on women, individuals below 18 years old and above 70 years old, and individuals with hemoglobinopathies. Additional resources are available on [facility] website. Scooby MALDONADO, Nba J, Sydnee R, et al. ??Tr anslating the A1C assay into estimated average glucose values. ??Diabetes Care 2008:31(8):0294-6163. Specimen Anatomical Collection Method Collection Time Receive d Time (Source) Location / / Volume Laterality Blood specimen 06/24/2020 10:57 0 (specimen) AM EST 11:09 AM EST Resulting Agency Comment Spec In Lab Donell Hernandez MD CHEMISTRY ORDERABLES Performing Organization Address City/State/[place] [address] documented in this encounter Visit Diagnoses Diagnosis Type 2 diabetes mellitus with hyperglyce maki, with long-term current use of insulin Rhinorrhea Other diseases of nasal cavity and sinus es Type 2 diabetes mellitus with diabetic n europathy, with long-term current use of insulin documented in this encounter Care Teams Protection Mgr Relationship Specialty Start Date End Date Violetta Sanford MD PCP - General 04/02/14 [address] [place] [address] documented as of this encounter
--- OUTSIDE RECORDS SUMMARY | 2022-06-16 12:26 | XMS_ITS | Encounter Summary ---
:1955 Author Organization [facility] Address [facility] [place] [address] Care Team Providers Name Role Phone Violetta Sanford MD Primary Care Provider Encounter Details Date Type Department Care Team Description 03/17/2020 Orders Only Solid Organ Transplant Alejo Garnett Aftercare following organ transplant; at [facility] MD Thang Status post kidney transplant; [facility] H/O kidney transplant; [place] [address] TRANSPLANT SURGERY [phone] [place] [id number] Social History Tobacco Use Types Packs/Day Years [...] Rojas MD [facility] Neurology [place], [place] [phone] (Wo rk) 06/29/2022 Appointment Cardiology Violetta Sanford M D [address] [place], [place] [address] (Oscar escobedo) 06/30/2022 Infusion Hematology and Oncology 07/14/2022 Infusion Hematology and Oncology 07/28/2022 Infusion Hematology and Oncology 08/11/2022 Infusion Hematology and Oncology 08/16/2022 Office Visit Audiology Mindy Moody AUD [facility] AUDIOLOGY [place], [place] [address] (Wo rk) 11/04/2022 Office Visit Rheumatology Dante Freedman, PA [facility] RHEUMATOLOGY [place], [place] [address] (Wo rk) documented as of this encounter Visit Diagnoses Diagnosis Aftercare following organ transplant Status post kidney transplant Kidney replaced by transplant H/O kidney transplant Kidney replaced by transplant Vitamin D deficiency Unspecified vitamin D deficiency documented in this encounter Care Teams Aging Department Supervisor Relationship Specialty Start Date End Date Violetta Sanford MD PCP - General 04/02/14 [facility] [address] [place] [address] documented as of this encounter
--- OUTSIDE RECORDS SUMMARY | 2022-06-16 12:26 | XMS_ITS | Encounter Summary ---
:1955 Author Organization [facility] Address [address] [place] [address] Care Team Providers Name Role Phone Violetta Sanford MD Primary Care Provider Encounter Details Date Type Department Care Team Description 01/02/2020 Refill Cardiology at [facility] Glory Salas, [facility] [place] [address] Social History Tobacco Use Types Packs/Day [...] and requests new prescriptions be sent to [facility] in [place] Rx's prepped and called to [facility] ([facility] as requested. Phoned in prescriptions to [facility] in [place] Spoke with Alla, Brass And Wind Instrument Repairer Pharmacist who requested NPI and then wanted [...] Neurology Tyler Rojas MD [facility] [address] [place], [place] [phone] (Oscar escobedo) 06/29/2022 Appointment Cardiology Violetta Sanford M D [address] [address] (Wo rk) 06/30/2022 Infusion Hematology and Oncology 07/14/2022 Infusion Hematology and Oncology 07/28/2022 Infusion Hematology and Oncology 08/11/2022 Infusion Hematology and Oncology 08/16/2022 Office Visit Audiology Mindy Moody AUD [facility] AUDIOLOGY [place], [place] [address] (Wo rk) 11/04/2022 Office Visit Rheumatology Dante Freedman, DA [facility] ER RHEUMATOLOGY [place], [place] [address] (Wo rk) documented as of this encounter Visit Diagnoses Not on filedocumented in this encounter Care Teams Supervisor Tree Fruit And Nut Farming Relationship Specialty Start Date End Date Violetta Sanford MD PCP - General 04/02/14 [facility] ALONDR[address] DAVID [facility] [address] [place] [address] documented as of this encounter
--- OUTSIDE RECORDS SUMMARY | 2022-06-16 12:26 | XMS_ITS | Encounter Summary ---
:1955 Author Organization [facility] Address [place] [id number] Care Team Providers Name Role Phone Violetta Sanford MD Primary Care Provider Reason for Referral Diagnostic Test (Routine) - Closed Specialty Diagnoses / Procedures Referred By Contact Refer red To Contact Cardiology Diagnoses PAF (paroxysmal atrial fibrillation) J Luis Quispe MD [facility] [place] 4a Procedures [facility] [place] [address] [place] [address] Referral ID Status Reason Start Date Expiration Date Visits V isits Requested Authorized [id number] Closed Specialty 08/16/2019 09/03/2019 1 1 Service [...] Alejo Garnett MD Costa, Salvatore P, MD [facility] TRANSPLANT [place] [address] [place] [address] Fax: Referral ID Status Reason Start Date Expiration Date Visits V isits Requested Authorized [id number] Consult, 07/09/2019 07/08/2020 10 10 Test & Treat Encounter Details Date Type Department Care Team Description 08/16/2019 Office Visit Cardiology at [facility] J Luis Quispe, Chronic atrial fibrillation (Primary Dx); [facility] PAF (paroxysmal atrial fibrillation) [place] [address] CARDIOLOGY DEPT. [phone] [place], [place] [address] (Wo rk) Social History Tobacco [...] in this encounter Progress Notes J Luis Quispe MD - 08/16/2019 10:20 AM EST Reason for Consult: Afib in renal transplant patient Referring Physician: Alejo Garnett MD Per nephrology (06/26/2019): Reuben returned to clinic with his . He was concerned over the rise in is creatinine but he admitted his diabetic care has been suspect, and he has noted intermittent palpitations. He related that when he was admitted to [facility] in October 2018 they had found him in and out of A fib. Despite that he had no evaluation or followup for the Afib. Reuben denies anasarca, progressive ascites, edema beyond usual from his amputations and obesity. Excessive salt intake new meds or allergies. ?? He was hospitalized last Fall 2017 for hyperkalemia, but his biggest stress is his ex [id number] who he and his believe set his [...] AFib. Diagnosed about 2 years ago at [facility] and [facility] (transferred). He notes that he occasionally gets PNA with metabolic abnormalities of potassium and magnesium. Cardiac History and Prior Cardiac Testing: ECG today: NSR at 91 bpm. He was a smoker but quit about 30 years ago, about 10 years 1-1.5 ppd. 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 Stress echo [...] gauge x 1/2 Needle 1 Device by [facility].(Non- Drug; Combo Route) [...] lungs daily. 1 ??? Miscellaneous Medical Supply [facility] 4 Devices by [facility].(Non-Drug; Combo Route) route [...] in 2007 referred to cardiology clinic for penitentiary management of PAF. He is in NSR today.He has no significant history of CAD. He has had a prior stress echo that was normal in 2014. He denies any history of [place]. Apparently during a hospitalization for PNA and [...] Neurology Tyler Rojas MD [facility] Dr [address] [place], [place] [phone] (Wo rk) 06/29/2022 Appointment Cardiology Violetta Sanford M D [address] [place] [address] (Wo rk) 06/30/2022 Infusion Hematology and Oncology 07/14/2022 Infusion Hematology and Oncology 07/28/2022 Infusion Hematology and Oncology 08/11/2022 Infusion Hematology and Oncology 08/16/2022 Office Visit Audiology Mindy Moody AUD [facility] AUDIOLOGY DEPT [place], [place] [address] (Wo rk) 11/04/2022 Office Visit Rheumatology Dante Freedman PA [facility] RHEUMATOLOGY [place], [place] [address] (Wo rk) documented as of [...] Laterality Volume Narrative 09/03/2019 10:23 PM EST [facility] ? Zio Patch? Ambulatory Cardiac Event Monitor Report Indication: paroxysmal atrial fibrillati on Duration of recording ? 1 day 7 hours Summary Data Predominant rhythm ? sinus rhythm with prolonged MA interval Minimum sinus rate 76 bpm Maximum [...] EKG 12 Lead (08/16/2019 10:14 AM EST) [facility] Method Time Signature Ventricular rate 91 BPM MUSE SYSTEM Atrial Rate 91 BPM MUSE SYSTEM P-R Interval 228 ms MUSE SYSTEM QRS Duration 104 ms MUSE SYSTEM Q-T Interval 392 ms MUSE SYSTEM QTC Calculated 482 ms MUSE SYSTEM (Bezet) Calculated P [place] 30 degrees MUSE SYSTEM Calculated R [place] -40 degrees MUSE SYSTEM Calculated T [place] 63 degrees MUSE SYSTEM INTERPRETATION Sinus rhythm with 1st degree A-V block with Premature atrial complexes MUSE SYSTEM Left axis deviation Prolonged QT Abnormal ECG When compared with ECG of 17-JUN-2013 02:20, Premature atrial complexes are now Present MA interval has increased QT has lengthened Confirmed by MD Mitra, Casimiro ([id number]) on 08/20/2019 10:39:4 5 PM Specimen Anatomical Collection Method Collection Time Receive d Time (Source) Location / / Volume Laterality 08/16/2019 10:14 08/20/2019 AM EST 10:39 PM EST J Luis Quispe MD ECG ORDERABLES Performing Organization Address City/State/ZIP Code Phon e Number MUSE SYSTEM documented in this encounter Visit Diagnoses Diagnosis Chronic atrial fibrillation - Primary Atrial fibrillation PAF (paroxysmal atrial fibrillation) Atrial fibrillation PAF (paroxysmal atrial fibrillation) Atrial fibrillation documented in this encounter Care Teams Labor Mediator Relationship Specialty Start Date End Date Violetta Sanford MD PCP - General 04/02/14 [address] [place] [address] documented as of this encounter
--- OUTSIDE RECORDS SUMMARY | 2022-06-16 12:26 | XMS_ITS | Encounter Summary ---
:1955 Author Organization [facility] [place] [address] Care Team Providers Name Role Phone Violetta Sanford MD Primary Care Provider Reason for Visit Reason Onset Date Comments Pump/sensor 10/15/2019 Encounter Details Date Type Department Care Team Description 10/15/2019 Telephone Endocrinology at [facility] Leny Kohler Pump/[place] [address] Social History Tobacco Use Types Packs/Day [...] 8:58 AM EDT Doctor Order received from [facility]. Filled out. Office note printed Dr. Hernadnez will sign. I will fax. documented in this encounter Plan of Treatment Upcoming Encounters Date Type Specialty Care Team Description 06/16/2022 Infusion Hematology and Oncology 06/21/2022 Office Visit Neurology Tyler Rojas MD [facility] Neurology [place], [place] [address] (Wo rk) 06/29/2022 Appointment Cardiology Violetta Sanford M D [address] [place], [place] [address] (Wo rk) 06/30/2022 Infusion Hematology and Oncology 07/14/2022 Infusion Hematology and Oncology 07/28/2022 Infusion Hematology and Oncology 08/11/2022 Infusion Hematology and Oncology 08/16/2022 Office Visit Audiology Mindy Moody AUD [facility] AUDIOLOGY [place], [place] [address] (Wo rk) 11/04/2022 Office Visit Rheumatology Dante Freedman PA [facility] RHEUMATOLOGY [place], [place] [address] (Wo rk) documented as of this encounter Visit Diagnoses Not on filedocumented in this encounter Care Teams Forge Operator Relationship Specialty Start Date End Date Violetta Sanford MD PCP - General 04/02/14 [address] [place] [address] documented as of this encounter
--- OUTSIDE RECORDS SUMMARY | 2022-06-16 12:26 | XMS_ITS | Encounter Summary ---
:1955 Author Organization [facility] [place] [address] Care Team Providers Name Role Phone Violetta Sanford MD Primary Care Provider Encounter Details Date Type Department Care Team Description 08/06/2019 External Results Solid Organ Transplant Devin Garnett, [place] [facility] [place] [address] TRANSPLANT SURGERY [phone] [place], [place] [address] (Wo rk) Social History [...] Tyler Rojas MD [facility] Dr [address] [place], [place] [address] (Wo rk) 06/29/2022 Appointment Cardiology Violetta Sanford M D [address] [place] [address] (Wo rk) 06/30/2022 Infusion Hematology and Oncology 07/14/2022 Infusion Hematology and Oncology 07/28/2022 Infusion Hematology and Oncology 08/11/2022 Infusion Hematology and Oncology 08/16/2022 Office Visit Audiology Mindy Moody AUD [facility] AUDIOLOGY DEPT [place], [place] [address] (Wo rk) 11/04/2022 Office Visit Rheumatology Dante Freedman PA [facility] RHEUMATOLOGY [place], [place] [address] (Wo rk) documented as [...] on filedocumented in this encounter Care Teams Classroom Teacher Relationship Specialty Start Date End Date Violetta Sanford MD PCP - General 04/02/14 [address] [place] [address] documented as of this encounter
--- OUTSIDE RECORDS SUMMARY | 2022-06-16 12:26 | XMS_ITS | Encounter Summary ---
:1955 Author Organization [facility] [place] [address] Care Team Providers Name Role Phone Violetta Sanford MD Primary Care Provider Encounter Details Date Type Department Care Team Description 09/12/2019 Telephone Endocrinology at [facility] Robert Viveros, [place] [address] Social History Tobacco Use Types Packs/Day [...] to Dr Hernandez to place referral to visual educator for CGM. Already scheduled appt. Telephone [...] He does have one localto him in [place], [place]. He says he has an appt in the pain clinic at next if there was need for him to come in and discuss in person. documented in this encounter Plan of Treatment Upcoming Encounters Date Type Specialty Care Team Description 06/16/2022 Infusion Hematology and Oncology 06/21/2022 Office Visit Neurology Tyler Rojas MD [facility] Neurology [place], [place] [address] (Wo rk) 06/29/2022 Appointment Cardiology Violetta Sanford M D [address] [place] [address] (Wo rk) 06/30/2022 Infusion Hematology and Oncology 07/14/2022 Infusion Hematology and Oncology 07/28/2022 Infusion Hematology and Oncology 08/11/2022 Infusion Hematology and Oncology 08/16/2022 Office Visit Audiology Mindy Moody AUD [facility] AUDIOLOGY DEPT [place], [place] [address] (Wo rk) 11/04/2022 Office Visit Rheumatology Dante Freedman PA [facility] RHEUMATOLOGY [place], [place] [address] (Wo rk) documented as of this encounter Visit Diagnoses Not on filedocumented in this encounter Care Teams Silk Winding Machine Operator Relationship Specialty Start Date End Date Violetta Sanford MD PCP - General 04/02/14 [address] [place], [place] [address] documented as of this encounter
--- OUTSIDE RECORDS SUMMARY | 2022-06-16 12:26 | XMS_ITS | Encounter Summary ---
:1955 Author Organization [facility] Address [address] [address] Care Team Providers Name Role Phone Violetta Sanford MD Primary Care Provider Encounter Details Date Type Department Care Team Description 06/24/2020 Office Visit Endocrinology at [facility] Donell Hernandez, Type 2 diabetes mellitus wit h hyperglycemia, with long-term current use of insulin; [facility] S/P bilateral BKA (below knee amputation ); [facility] CKD (chronic kidney disease) stage 4, GFR 15-29 ml/[place] [address] CENTER [phone] ENDOCRINOLOGY DEPT. [place], [place] [address] Social History Tobacco Use Types [...] last Cr: today last lipid panel:2011 regular manager strategic sourcing:no special shoes:no flu shot :yes pneumovax: 2011 [...] Rojas MD [facility] Neurology [place], [place] [address] (Wo rk) 06/29/2022 Appointment Cardiology Violetta Sanford M D [address] [place] [address] (Wo rk) 06/30/2022 Infusion Hematology and Oncology 07/14/2022 Infusion Hematology and Oncology 07/28/2022 Infusion Hematology and Oncology 08/11/2022 Infusion Hematology and Oncology 08/16/2022 Office Visit Audiology Mindy Moody AUD [facility] AUDIOLOGY DEPT [place], [place] [address] (Wo rk) 11/04/2022 Office Visit Rheumatology Dante Freedman PA [facility] RHEUMATOLOGY [place], [place] [address] (Wo rk) documented as of this encounter Results (ABNORMAL) Hemoglobin A1c (09/01/2020 9:39 AM EST) Analysis Performed At [facility] Time Signature Hemoglobin A1C 6.5 (H) 4.3 - 5.6 [facility] Comment: Reference Range: 4.3 - [...] 36: Suppl. 1, S67-74 Est Avg Gluc 140 mg/dL JERE GARRISON [facility] Comment: eAG equivalents for HbA1c [...] into estimated average glucose values. ??Diabetes Care 2008:31(8):9203-3705. Specimen Anatomical Collection Method Collection Time Receive d Time (Source) Location / / Volume Laterality Blood specimen 09/01/2020 9:39 AM 021 9:49 (specimen) EST AM EST Resulting Agency Comment Spec In Lab Donell Hernandez MD CHEMISTRY ORDERABLES Performing Organization Address City/State/ZIP [place] [address] documented in this encounter Visit Diagnoses Diagnosis Type 2 diabetes mellitus with hyperglyce maki, with long-term current use of insulin S/P bilateral BKA (below knee amputation ) Lower limb amputation, below knee CKD (chronic kidney disease) stage 4, GF R 15-29 ml/min Chronic kidney disease, Stage IV (severe ) documented in this encounter Care Teams Piano Regulator Relationship Specialty Start Date End Date Violetta Sanford MD PCP - General 04/02/14 [address] [place] [address] documented as of this encounter
--- OUTSIDE RECORDS SUMMARY | 2022-06-16 12:26 | XMS_ITS | Encounter Summary ---
:1955 Author Organization [facility] [place] [address] Care Team Providers Name Role Phone Violetta Sanford MD Primary Care Provider Encounter Details Date Type Department Care Team Description 03/26/2020 Telephone Solid Organ Transplant at Aisha Aceves [facility] [place] [address] Social History Tobacco Use Types Packs/Day [...] appt with Dr Garnett. Advised will notify confidential secretary and will receive call regarding scheduling. Advised to call back kidney transplant clinic with any questions or updates. documented in this encounter Plan of Treatment Upcoming Encounters Date Type Specialty Care Team Description 06/16/2022 Infusion Hematology and Oncology 06/21/2022 Office Visit Neurology Tyler Rojas MD [facility] Neurology [place], [place] [address] (Wo rk) 06/29/2022 Appointment Cardiology Violetta Sanford M D [address] [place], [place] [address] (Wo rk) 06/30/2022 Infusion Hematology and Oncology 07/14/2022 Infusion Hematology and Oncology 07/28/2022 Infusion Hematology and Oncology 08/11/2022 Infusion Hematology and Oncology 08/16/2022 Office Visit Audiology Mindy Moody, [facility] [place]IOLOGY [place], [place] [address] (Wo rk) 11/04/2022 Office Visit Rheumatology Dante Freedman PA [facility] RHEUMATOLOGY [place], [place] [address] (Wo rk) documented as of this encounter Visit Diagnoses Not on filedocumented in this encounter Care Teams Parking Control Officer Relationship Specialty Start Date End Date Violetta Sanford MD PCP - General 04/02/14 [address] [place] [address] documented as of this encounter
--- OUTSIDE RECORDS SUMMARY | 2022-06-16 12:26 | XMS_ITS | Encounter Summary ---
:1955 Author Organization [facility] [place] [address] Care Team Providers Name Role Phone Violetta Sanford MD Primary Care Provider Encounter Details Date Type Department Care Team Description 08/19/2020 Telephone Endocrinology at [facility] Niyah Pappas, [place] [address] Social History Tobacco Use Types Packs/Day Years Used Date Smoking Tobacco: Former Cigarettes 2 20 Quit : 01/19/1993 Smokeless Tobacco: Never Alcohol Use Standard Drinks/Week Comments Yes 0 (1 standard drink = 0.6 oz pure alcoho l) Once a year Sex Assigned at Date Recorded Not on file documented as of this encounter Miscellaneous Notes Telephone Encounter - Leny oMrales - 08/22/2020 11:02 AM EST Called pharmacy [...] Rojas MD [facility] Neurology [place], [place] [address] (Wo rk) 06/29/2022 Appointment Cardiology Violetta Sanford M D [address] [place], [place] [address] (Wo rk) 06/30/2022 Infusion Hematology and Oncology 07/14/2022 Infusion Hematology and Oncology 07/28/2022 Infusion Hematology and Oncology 08/11/2022 Infusion Hematology and Oncology 08/16/2022 Office Visit Audiology Mindy Moody AUD [facility] AUDIOLOGY [place], [place] [address] (Wo rk) 11/04/2022 Office Visit Rheumatology Dante Freedman PA [facility] RHEUMATOLOGY [place], [place] [address] (Wo rk) documented as of this encounter Visit Diagnoses Not on filedocumented in this encounter Care Teams Information Developer Relationship Specialty Start Date End Date Violetta Sanford MD PCP - General 04/02/14 [address] [place] [address] documented as of this encounter
--- OUTSIDE RECORDS SUMMARY | 2022-06-16 12:27 | XMS_ITS | Encounter Summary ---
:1955 Author Organization [facility] [place] [address] Care Team Providers Name Role Phone Violetta Sanford MD Primary Care Provider Encounter Details Date Type Department Care Team Description 07/13/2019 External Results Neurology at [facility] Shivam Rojas [facility] [place] [address] Neurology [phone] [place], [place] [address] (Wo rk) Social History Tobacco [...] Tyler Rojas MD [facility] Dr Farah [place], [place] [address] (Wo rk) 06/29/2022 Appointment Cardiology Violetta Sanford M D [address] [place] [address] (Wo rk) 06/30/2022 Infusion Hematology and Oncology 07/14/2022 Infusion Hematology and Oncology 07/28/2022 Infusion Hematology and Oncology 08/11/2022 Infusion Hematology and Oncology 08/16/2022 Office Visit Audiology Mindy Moody AUD [facility] AUDIOLOGY DEPT [place], [place] [address] (Wo rk) 11/04/2022 Office Visit Rheumatology Dante Freedman PA [facility] RHEUMATOLOGY [place], [place] [address] (Wo rk) documented as [...] metabolic panel (non-fasting) (07/09/2019) [facility] Time Signature Glucose Lvl 159 (H) BUN [...] on filedocumented in this encounter Care Teams Publication Editor Relationship Specialty Start Date End Date Violetta Sanford MD PCP - General 04/02/14 [address] [place] [address] documented as of this encounter
--- OUTSIDE RECORDS SUMMARY | 2022-06-16 12:27 | XMS_ITS | Encounter Summary ---
:1955 Author Organization [place] [address] Care Team Providers Name Role Phone Violetta Sanford MD Primary Care Provider Encounter Details Date Type Department Care Team Description 03/13/2019 Orders [facility] [place] [address] Social History Tobacco Use Types Packs/Day [...] Rojas MD [facility] Neurology [place], [place] [address] (Wo rk) 06/29/2022 Appointment Cardiology Violetta Sanford M D [address] [place], [place] [address] (Oscar rk) 06/30/2022 Infusion Hematology and Oncology 07/14/2022 Infusion Hematology and Oncology 07/28/2022 Infusion Hematology and Oncology 08/11/2022 Infusion Hematology and Oncology 08/16/2022 Office Visit Audiology Mindy Moody, [facility] AUDIOLOGY DEPT [place], [place] [address] (Wo rk) 11/04/2022 Office Visit Rheumatology Dante Freedman, PA [facility] RHEUMATOLOGY [place], [place] [address] (Wo rk) documented as of this encounter Visit Diagnoses Not on filedocumented in this encounter Care Teams Mechanical Operator Relationship Specialty Start Date End Date Violetta Sanford MD PCP - General 04/02/14 [address] [place] [address] documented as of this encounter
--- OUTSIDE RECORDS SUMMARY | 2022-06-16 12:27 | XMS_ITS | Encounter Summary ---
:1955 Author Organization [facility] [address] Care Team Providers Name Role Phone Violetta Sanford MD Primary Care Provider Encounter Details Date Type Department Care Team Description 07/30/2019 Telephone Solid Organ Transplant at Aisha Aceves [facility] [place] [address] Social History Tobacco Use Types Packs/Day [...] PM EST Recvd call from Jeremie at [facility] to report a critical lab value. [...] Tyler Rojas MD [facility] Dr Sofi [place], [place] [address] (Wo rk) 06/29/2022 Appointment Cardiology Violetta Sanford M D [address] [place] [address] (Wo rk) 06/30/2022 Infusion Hematology and Oncology 07/14/2022 Infusion Hematology and Oncology 07/28/2022 Infusion Hematology and Oncology 08/11/2022 Infusion Hematology and Oncology 08/16/2022 Office Visit Audiology Mindy Moody AUD [facility] AUDIOLOGY DEPT [place], [place] [address] (Wo rk) 11/04/2022 Office Visit Rheumatology Dante Freedman PA [facility] RHEUMATOLOGY [place], [place] [address] (Wo rk) documented as of this encounter Visit Diagnoses Not on filedocumented in this encounter Care Teams Manager Materials Management Relationship Specialty Start Date End Date Violetta Sanford MD PCP - General 04/02/14 [address] [place], [place] [address] documented as of this encounter
--- OUTSIDE RECORDS SUMMARY | 2022-06-16 12:27 | XMS_ITS | Encounter Summary ---
:1955 Author Organization [facility] [place] [address] Care Team Providers Name Role Phone Violetta Sanford MD Primary Care Provider Encounter Details Date Type Department Care Team Description 03/21/2019 Laboratory Appointment Lab 3L [facility] [place] [id number] Social History Tobacco Use Types Packs/Day Years [...] Neurology Tyler Rojas MD [facility] Neurology [place], [place] [phone] (Wo rk) 06/29/2022 Appointment Cardiology Violetta Sanford M D [address] [place], [place] [id number] (Wo rk) 06/30/2022 Infusion Hematology and Oncology 07/14/2022 Infusion Hematology and Oncology 07/28/2022 Infusion Hematology and Oncology 08/11/2022 Infusion Hematology and Oncology 08/16/2022 Office Visit Audiology Mindy Moody, WENDI [facility] AUDIOLOGY DEPT [place], [place] [address] (Wo rk) 11/04/2022 Office Visit Rheumatology Dante Freedman PA [facility] RHEUMATOLOGY [place], [place] [address] (Wo rk) documented as of [...] RBC UA 3 0 - 3 /HPF [facility] WBC UA 1 0 - 3 /HPF [facility] Specimen (Source) Anatomical Collection Method Collection Time Re ceived Time Location / / Volume Laterality Urine specimen 03/21/2019 9:21 03/21/2019 9:34 obtained by clean AM EDT AM EDT catch procedure (specimen) Resulting Agency Comment Spec In Lab Alejo Garnett MD URINE ORDERABLES Performing Organization Address City/[facility]/[place]IP [place] [address] (ABNORMAL) Urinalysis with reflex Culture (03/21/2019 9:21 AM EDT) [facility] Method Time Signature Glucose UA Negative Negative [facility] mg/dL [facility] Protein UA 100 (A) Negative [facility] mg/dL [facility] Bilirubin UA Negative Negative [facility] mg/dL [facility] Comment: Clinical correlation required for positi ve Urine Bilirubin results as false positive may occur with some drugs and d rug related products. If a false positive is suspected a serum total bili reyna should be considered if clinically indicated. Urobilinogen UA Normal Normal mg/dL [facility] pH UA 6.0 5.0 - 8.0 [facility] Blood UA Negative Negative mg/dL [facility] Ketones UA Negative Negative mg/dL [facility] Nitrite UA Negative Negative [facility] Leukocytes UA Negative Negative [facility] LABORATORY Appearance UA Clear Clear [facility] LABORATORY Spec Blount UA 1.013 1.002 - 1.030 [facility] Color UA Yellow Yellow [facility] Culture Reflexed No [facility] Specimen (Source) Anatomical Collection Method Collection Time Re ceived Time Location / / Volume Laterality Urine specimen 03/21/2019 9:21 03/21/2019 9:34 obtained by clean AM EDT AM EDT catch procedure (specimen) Resulting Agency Comment Spec In Lab Alejo Garnett MD URINE ORDERABLES Performing Organization Address City/[facility]/ZIP [place] [address] BKV Quant Urine (03/21/2019 9:21 AM EDT) Component Value Ref Test Analysis Performed At Patholo gist Range Method Time Signature BKV Urine Not Detected [facility] LABORATORY BKV Urine BK Virus Urine Result Interpretation JERE Ramirez [facility] Result: BK Virus not detected HOSPITAL Specimen type: urine LABORATOR Y Assay Range: 2.80-7.80 log copies/mL (6.28x10^2 - 6.28x10^7 copies/mL) Methods: Quantitative real-time polymerase chain react ion (PCR) of viral DNA isolated from plasma was performed using [employer] BKV analyte-specific reagents and the [employer] System that automates both nucleic a alonzo [...] and Advanc ed Technology (CGAT) Laboratory at [facility]. It has not been cleared or approved [...] Organization Address City/State/[place] [address] Calcium Creatinine Ratio, random urine (03/21/2019 9:21 AM EDT) P athologist Signature U Calcium 2.0 mg/dL [facility] U Creatinine 64 mg/dL [facility] Ca/Cre Ratio 0.03 ratio [facility] Specimen Anatomical Collection Method Collection Time Receive d Time (Source) Location / / Volume Laterality Urine specimen 03/21/2019 9:21 AM 019 9:34 (specimen) EDT AM EDT Resulting Agency Comment Spec In Lab Alejo Garnett MD URINE ORDERABLES Performing Organization Address City/State/ZIP Code Phon e Number [address] Phosphorus, urine, random (03/21/2019 9:21 AM EDT) P athologist Signature U Phosphorus 45.1 mg/dL [facility] Specimen Anatomical Collection Method Collection Time Receive d Time (Source) Location / / Volume Laterality Urine specimen 03/21/2019 9:21 AM 019 9:34 (specimen) EDT AM EDT Resulting Agency Comment Spec In Lab Alejo Garnett MD URINE ORDERABLES Performing Organization Address City/[facility]/ZIP Code Phon e Number [address] (ABNORMAL) Protein/Creatinine Ratio, urine (03/21/2019 9:21 AM EDT) P athologist Signature U Creatinine 64 mg/dL [facility] U Protein Ran 73 (H) 0 - 12 [facility] mg/dL [facility] Prot/Cre Ratio 1.1 ratio [facility] Specimen Anatomical Collection Method Collection Time Receive d Time (Source) Location / / Volume Laterality Urine specimen 03/21/2019 9:21 AM 019 9:34 (specimen) EDT AM EDT Resulting Agency Comment Spec In Lab Alejo Garnett MD URINE ORDERABLES Performing Organization Address City/[facility]/ZIP Code Phon e Number [address] Magnesium, urine, random (03/21/2019 9:21 AM EDT) P athologist Signature U Mg Ran 2.21 mmol/L [facility] Specimen Anatomical Collection Method Collection Time Receive d Time (Source) Location / / Volume Laterality Urine specimen 03/21/2019 9:21 AM 019 9:34 (specimen) EDT AM EDT Resulting Agency Comment Spec In Lab Alejo Garnett MD URINE ORDERABLES Performing Organization Address City/State/ZIP Code Phon e Number [address] Creatinine, urine, random (03/21/2019 9:21 AM EDT) athologist Signature U Creatinine 64 mg/dL [facility] Specimen Anatomical Collection Method Collection Time Receive d Time (Source) Location / / Volume Laterality Urine specimen 03/21/2019 9:21 AM 019 9:34 (specimen) EDT AM EDT Resulting Agency Comment Spec In Lab Alejo Garnett MD URINE ORDERABLES Performing Organization Address City/[facility]/ZIP Code Phon e Number [address] Differential, Automated (03/21/2019 8:51 AM EDT) athologist Signature Neutrophils % 58.3 % [facility] Neutr Abs (ANC) 4.01 1.70 - [facility] 6.10 [facility] x10(3)/[facility] LABORATORY Lymphocytes % 28.2 % [facility] Lymphocytes Abs 1.9 0.9 - 3.2 [facility] x10(3)/[facility] LABORATORY Monocytes % 7.9 % [facility] Monocyte Abs 0.5 0.3 - 0.9 [facility] x10(3)/[facility] LABORATORY Eosinophils % 4.7 % [facility] Eosinophils Abs 0.3 0.0 - 0.4 [facility] x10(3)/[facility] LABORATORY Basophils % 0.6 % [facility] Basophils Abs 0.0 0.0 - 0.1 [facility] x10(3)/[facility] LABORATORY Immature Gran % 0.30 % [facility] Comment: Immature granulocytes(IG's)percentage an d absolute count will include metamyelocytes, myelocytes, and promyelo cytes. Blood smears from CBCs yielding IG's will be scanned manually for concor dance. If this scan disagrees with the automated IG or if promyelocytes are not ed, a manual differential will be performed. Courtney Gran Abs 0.02 0.00 - 0.04 x10(3)/[facility] LAB[facility] Specimen Anatomical Collection Method Collection Time Receive d Time (Source) Location / / Volume Laterality Blood specimen 03/21/2019 8:51 AM 019 8:57 (specimen) EDT AM EDT Resulting Agency Comment Spec In Lab Alejo Garnett MD HEMATOLOGY ORDERABLES Performing Organization Address City/State/[place] [address] (ABNORMAL) Hemogram (03/21/2019 8:51 AM EDT) Analysis Performed At Patho logist Time Signature WBC 6.9 4.0 - 9.5 [facility] x10(3)/[facility] LABORATORY RBC 3.68 (L) 4.58 - [facility] 5.54 [facility] x10(6)/[facility] LABORATORY Hemoglobin 11.2 (L) 13.7 - [facility] 16.5 gm/dL [facility] Hematocrit 36.1 (L) 40.5 - [facility] 48.5 % [facility] MCV 98.1 (H) 82.9 - [facility] 93.1 [facility] LABORATORY MCH 30.4 27.5 - [facility] 32.1 pg [facility] MCHC 31.0 (L) 32.0 - [facility] 35.7 gm/dL [facility] Platelets 194 145 - 357 [facility] x10(3)/[facility] LABORATORY RDWSD 52.6 (H) 36.0 - [facility] MELI 45.0 [facility] LABORATORY RDWCV 14.6 (H) 11.4 - [facility] M[facility] 13.8 % [facility] LAB[facility]ATORY MPV 8.6 7.6 - 12.9 [facility] LABORATORY nRBC % Auto 0.0 % [facility] nRBC Abs Auto 0.000 0.000 - [facility] MELI 0.000 [facility] x10(3)/[facility] LABORATORY Specimen Anatomical Collection Method Collection Time Receive d Time (Source) Location / / Volume Laterality Blood specimen 03/21/2019 8:51 AM 019 8:57 (specimen) EDT AM EDT Resulting Agency Comment Spec In Lab Alejo Garnett MD HEMATOLOGY ORDERABLES Performing Organization Address City/State/[place] [address] (ABNORMAL) Hemoglobin A1c (03/21/2019 8:51 AM EDT) Analysis Performed At Patho logist Time Signature Hemoglobin A1C 8.0 (H) 4.3 - 5.6 [facility] Comment: Reference Range: 4.3 - [...] Mellitus, Diabetes Care 2013; 36: Suppl. 1, S67-93 Est Avg Gluc 183 mg/dL [facility] Comment: eAG equivalents for HbA1c percentages: HbA1c(%) ?eAG(mg/dL) 6.0 ?126 6.5 ?140 7.0 ?154 7.5 ?169 8.0 ?183 8.5 ?197 9.0 ?212 9.5 ?226 10.0 ? 240 Limitations: The eAG calculation has not been validated on women, individuals below 18 years old and above 70 years old, and individuals with hemoglobinopathies. Additional resources are available on [facility] website. Scooby MALDONADO, Nba J, Sydnee R, et al. ??Tr anslating the A1C assay into estimated average glucose values. ??Diabetes Care 2008:31(8):2487-3211. Specimen Anatomical Collection Method Collection Time Receive d Time (Source) Location / / Volume Laterality Blood specimen 03/21/2019 8:51 AM 019 8:57 (specimen) EDT AM EDT Resulting Agency Comment Spec In Lab Alejo Garnett MD CHEMISTRY ORDERABLES Performing Organization Address City/[facility]/ZIP [facility] Phon e Number [address] (ABNORMAL) Reticulocyte Count (03/21/2019 8:51 AM EDT) Patholo gist Method Time Signature Retic Ct % 2.6 0.7 - 2.6 [facility] % [facility] LABORATORY Retic Ct Abs 0.090 0.030 - [facility] 0.120 [facility] x10(6)/[facility] LABORATORY Immature Retic% 23.7 (H) 0.0 - [facility] 15.6 % [facility] Reticulated Hgb 29.3 (L) 31.3 - [facility] 40.2 pg [facility] Specimen Anatomical Collection Method Collection Time Receive d Time (Source) Location / / Volume Laterality Blood specimen 03/21/2019 8:51 AM 019 8:57 (specimen) EDT AM EDT Resulting Agency Comment Spec In Lab Alejo Garnett MD HEMATOLOGY ORDERABLES Performing Organization Address City/[facility]/ZIP [place] [address] (ABNORMAL) Comprehensive metabolic panel (non-fasting) (03/21/2019 8:51 AM EDT) P athologist Signature Glucose Lvl 176 65 - 199 [facility] mg/dL [facility] Comment: Diabetes: >=200 mg/dL plus symp toms BUN 23 (H) 10 - 20 mg/dL [facility]ORY Creatinine 1.88 (H) 0.80 - 1.50 mg/dL [facility] Sodium 139 135 - 145 mmol/L [facility] Potassium 4.7 3.5 - 5.0 mmol/L [facility] Comment: Please note: ??Patients with WBC >100,00 0 may have falsely elevated Potassium levels. ??For accurate Potassium quantif ication in these patients send serum separator tube (gold top) for subsequent determinations. ??Contact the Clinical Chemistry Laboratory if there are any qu estions. Chloride 105 98 - 107 mmol/L [facility] CO2 25 22 - 31 mmol/L [facility] Anion Gap 9 5 - 15 mmol/L [facility] Calcium 9.4 8.5 - 10.5 mg/dL [facility] Total Protein 7.8 6.1 - 8.0 gm/dL [facility] Albumin 3.4 3.2 - 5.2 gm/dL [facility] AST 35 0 - 39 unit/L [facility] ALT 48 0 - 55 unit/L [facility] Alk Phos 158 (H) 40 - 130 unit/L [facility] Total Bilirubin 0.5 0.2 - 1.3 mg/dL [facility] Estimated GFR 37 (L) >=60 mL/min/1.73 m?? [facility] Comment: The eGFR was calculated using the CKD-EP I equation. As with all creatinine based estimates of kidney function, eGFR values calculated with the CKD-EPI equation are not accurate in patients wi th acute kidney failure, extremes of body mass or the acutely ill. http://[employer]/DHMCnkf eGFR 42 (L) >=60 mL/min/1.73 m?? [facility] Comment: The eGFR was calculated using the CKD-EP I equation. As with all creatinine based estimates of kidney function, eGFR values calculated with the CKD-EPI equation are not accurate in patients wi th acute kidney failure, extremes of body mass or the acutely ill. http://[employer]/DHMCnkf Specimen Anatomical Collection Method Collection Time Receive d Time (Source) Location / / Volume Laterality Blood specimen 03/21/2019 8:51 AM 019 8:57 (specimen) EDT AM EDT Resulting Agency Comment Spec In Lab Alejo Garnett MD CHEMISTRY ORDERABLES Performing Organization Address City/State/[place] [address] Lipid Panel (03/21/2019 8:51 AM EDT) athologist Signature Chol, Total 96 mg/dL [facility] Comment: Lower Risk: <200 mg/dL Average Risk: 200-239 mg/dL Higher Risk: >gv=923 mg/dL Triglycerides 184 mg/dL [facility] Comment: Average Risk/Lower Risk: <150 mg/dL Borderline High Risk: 150-199 mg/dL High Risk: 200-499 mg/dL Very High Risk: >kf=936 mg/dL HDL 24 mg/dL [facility] Comment: Males: ?? Higher Risk: <40 mg/dL Females: ?? HIgher Risk: <50 mg/dL LDL Cholesterol 35 mg/dL [facility] Comment: Lowest Risk: <100 mg/dL Lower Risk: 100-129 mg/dL Borderline High Risk: 130-159 mg/dL High Risk: 160-189 mg/dL Very High Risk: >jv=136 mg/dL Chol/HDL Ratio 4.0 ratio [facility] Lipid Interpretation See Note [facility] Comment: Lipid management should be guided by a p atient? s ASCVD risk, goals and preferences. ACC/AHA Guidelines recommend high intens ity statin if clinical ASCVD or LDL greater than or equal to 190 mg/dL. http://Pirate Brandsurl.com/JNM-ODB-Jlffunjvs Adults aged 40-75 with LDL 70-189 mg/dL should have their 10 year ASCVD risk estimated with the ACC/AHA ASCVD risk es timator http://tools.acc.org/KNHHT-Cazp-Rvlxnlor r/ Statin should be discussed if risk [...] MD CHEMISTRY ORDERABLES Performing Organization Address City/[facility]/ZIP [place] [address] Phosphorus (03/21/2019 8:51 AM EDT) P athologist Signature Phosphorus 3.4 2.5 - 4.5 [facility] mg/dL [facility] Specimen Anatomical Collection Method Collection Time Receive d Time (Source) Location / / Volume Laterality Blood specimen 03/21/2019 8:51 AM 019 8:57 (specimen) EDT AM EDT Resulting Agency Comment Spec In Lab Alejo Garnett MD CHEMISTRY ORDERABLES Performing Organization Address City/[facility]/ZIP [place] [address] (ABNORMAL) Magnesium (03/21/2019 8:51 AM EDT) P athologist Signature Magnesium 0.62 (L) 0.69 - 1.07 [facility] mmol/L [facility] Specimen Anatomical Collection Method Collection Time Receive d Time (Source) Location / / Volume Laterality Blood specimen 03/21/2019 8:51 AM 019 8:57 (specimen) EDT AM EDT Resulting Agency Comment Spec In Lab Alejo Garnett MD CHEMISTRY ORDERABLES Performing Organization Address City/[facility]/ZIP [place] [address] Uric acid (03/21/2019 8:51 AM EDT) P athologist Signature Uric Acid 7.5 3.5 - 8.5 JERE GARRISON mg/dL [facility] Specimen Anatomical Collection Method Collection Time Receive d Time (Source) Location / / Volume Laterality Blood specimen 03/21/2019 8:51 AM 019 8:57 (specimen) EDT AM EDT Resulting Agency Comment Spec In Lab Alejo Garnett MD CHEMISTRY ORDERABLES Performing Organization Address City/State/ZIP Code Phon e Number [address] (ABNORMAL) PTH (03/21/2019 8:51 AM EDT) P athologist Signature PTH 92 (H) 15 - 65 JERE GARRISON pg/mL [facility] Specimen Anatomical Collection Method Collection Time Receive d Time (Source) Location / / Volume Laterality Blood specimen 03/21/2019 8:51 AM 019 8:57 (specimen) EDT AM EDT Resulting Agency Comment Spec In Lab Alejo Garnett MD CHEMISTRY ORDERABLES Performing Organization Address City/[facility]/ZIP Code Phon e Number [address] Vitamin D, 25-Hydroxy (03/21/2019 8:51 AM EDT) P athologist Signature 25-OH Vit D 31 30 - 100 [facility] Total ng/mL [facility] Comment: Deficient <10 ng/mL Insufficient 10 to 29 ng/mL Sufficient 30 to 100 ng/mL Potential Intoxication >100 ng/mL According to the [place] National Osteoporosi s Foundation, Vitamin D concentrations >30 ng/mL are sufficient to protect bone health. ??The National Kidney Foundation has similarly stated that pat ients with Vitamin D concentrations <30ng/mL should be considered to be insu fficient or deficient. http://[employer]/nkf-guidelines http://[employer]/nejm-VitD The [employer] Vitamin D Immunoassay detec [...] MD CHEMISTRY ORDERABLES Performing Organization Address City/[facility]/ZIP Code Phon e Number [address] Gold Tube HOLD (03/21/2019 8:51 AM EDT) P athologist Signature Gold Hold Sample in [facility] LABORATORY Specimen Anatomical Collection Method Collection Time Receive d Time (Source) Location / / Volume Laterality Blood specimen 03/21/2019 8:51 AM 019 8:57 (specimen) EDT AM EDT Alejo Garnett MD CHEMISTRY ORDERABLES Performing Organization Address City/[facility]/ZIP Code Phon e Number [address] Lavender Tube HOLD (03/21/2019 8:51 AM EDT) Patholo gist Method Time Signature Lavender Hold Sample in [facility]. [facility] Specimen Anatomical Collection Method Collection Time Receive d Time (Source) Location / / Volume Laterality Blood specimen 03/21/2019 8:51 AM 019 8:57 (specimen) EDT AM EDT Alejo Garnett MD HEMATOLOGY ORDERABLES Performing Organization Address City/[facility]/ZIP [place] [address] 1,25-dihydroxycholecalciferol (03/21/2019 8:51 AM EDT) P athologist Signature Vit D 1,25 19 18 - 64 [facility] pg/mL [facility] Comment: ADDITIONAL INFORMATIO N This test was developed and its performa nce characteristics determined by [facility] in a manner co nsistent with CLIA requirements. This test has not been carlos ared or approved by the U.S. Food and Drug Administration. Test Performed by: [facility] [address] [place], [place] [address] Character Actress: Van White M.D. Ph. D.; CLIA# [id number] Specimen Anatomical Collection Method Collection Time Receive d Time (Source) Location / / Volume Laterality Blood specimen 03/21/2019 8:51 AM 019 (specimen) EDT 11:15 AM EDT Resulting Agency Comment Spec In Lab Alejo Garnett MD CHEMISTRY ORDERABLES Performing Organization Address City/[facility] [place] [address] Tacrolimus level (03/21/2019 8:51 AM EDT) athologist Signature Tacrolimus Lvl 4.6 ng/mL [facility] Comment: Trough therapeutic: ??5-15 ng/mL Performed by ultra-performance liquid ch romatography tandem mass spectrometry (UPLCMS/MS). This test was developed and its performa nce characteristics determined by [facility]. It has not been cleared [...] MD CHEMISTRY ORDERABLES Performing Organization Address City/[facility] [place] [address] documented in this encounter Visit Diagnoses Diagnosis H/O kidney transplant Kidney replaced by transplant documented in this encounter Care Teams Putty Worker Relationship Specialty Start Date End Date Violetta Sanford MD PCP - General 04/02/14 Constantino [address] [place] [address] documented as of this encounter
--- OUTSIDE RECORDS SUMMARY | 2022-06-16 12:27 | XMS_ITS | Encounter Summary ---
:1955 Author Organization [facility] [place] [address] Care Team Providers Name Role Phone Violetta Sanford MD Primary Care Provider Encounter Details Date Type Department Care Team Description 03/21/2019 Office Visit Solid Organ Mariola H/O kidney tilley splant; [facility] Alejo Desir MD Transplanted kidney; [facility] MEDICAL Aftercare following organ transplant; [facility] DR Mona ruiz [place], [place] TRANSPLANT [id number] SURGERY [phone] [place], [place] [address] Social History Tobacco Use Types [...] Leroy Dailey Transplant Date: 02/29/08?? Organ(s) Kidney?? [place] organ diagnosis: Diabetes Mellitus - Type II?? From Transplant: 11 years ? ID: This is a 63 yo white male with a history of ESRD secondary to diabetic nephropathy s/p DD renaltransplant on 02/29/08 who returns for his 11th anniversary. ?? Interim Hx: He was hospitalized last Fall for hyperkalemia, but his biggest stress is his ex [id number] whohe and his believe set his house [...] age 48 - Normal in 2017 in [facility] Monthly self skin exam, daily spf [...] Last test done 03/21/2015 which was normal. [place] kidney ultrasound looking for renal cell CA, [...] BELOW-KNEE performed by HENNA GAMINO JR at [facility] MAIN OR ??? PRO LAP, APPENDECTOMY 06/16/2013 LAPAROSCOPIC APPENDECTOMY performed by Angel Mccann MD at [facility] MAIN OR Current Outpatient Medications: ??? CELLCEPT [...] gauge x 1/2 Needle, 1 Device by [facility]Non- Drug; Combo Route) route 3 times daily., [...] , Rfl: 1 ??? Miscellaneous Medical Supply [facility] 4 Devices by [facility]Non-Drug; Combo Route) route daily. Rubbersheath for leg [...] from 03/21/2019 in Solid Organ Transplant at [facility] Weight 136.1 kg (300 lb) Temp 37.1 [...] Healthcare maintenance - See section above. Needs [place] kidney and transplanted kidney U/S to rule [...] 30 min in direct face to face weight loss counselor. documented in this encounter Plan of Treatment Upcoming Encounters Date Type Specialty Care Team Description 06/16/2022 Infusion Hematology and Oncology 06/21/2022 Office Visit Neurology Tyler Rojas MD [facility] Neurology [place] [phone] (Wo rk) 06/29/2022 Appointment Cardiology Violetta Sanford M D [facility] [address] [place] [phone] (Wo rk) 06/30/2022 Infusion Hematology and Oncology 07/14/2022 Infusion Hematology and Oncology 07/28/2022 Infusion Hematology and Oncology 08/11/2022 Infusion Hematology and Oncology 08/16/2022 Office Visit Audiology Mindy Moody AUD [facility] AUDIOLOGY DEPT [place], [place] [address] (Wo rk) 11/04/2022 Office Visit Rheumatology Dante Freedman PA [facility] RHEUMATOLOGY [place], [place] [address] (Wo rk) documented as of this encounter Results Creatinine, urine, random (03/21/2019 9:21 AM EDT) P athologist Signature U Creatinine 64 mg/dL [facility] Specimen Anatomical Collection Method Collection Time Receive d Time (Source) Location / / Volume Laterality Urine specimen 03/21/2019 9:21 AM 019 9:34 (specimen) EDT AM EDT Resulting Agency Comment Spec In Lab Alejo Garnett MD URINE ORDERABLES Performing Organization Address City/State/[place] [address] documented in this encounter Visit Diagnoses Diagnosis H/O kidney transplant Kidney replaced by transplant Transplanted kidney Kidney replaced by transplant Aftercare following organ transplant Prophylactic immunotherapy Need for prophylactic immunotherapy documented in this encounter Care Teams Wood Room Hand Relationship Specialty Start Date End Date Violetta Sanford MD PCP - General 04/02/14 [address] [place] [address] documented as of this encounter
--- OUTSIDE RECORDS SUMMARY | 2022-06-16 12:27 | XMS_ITS | Encounter Summary ---
:1955 Author Organization [facility] Address [address] [place] [address] Care Team Providers Name Role Phone Violetta Sanford MD Primary Care Provider Encounter Details Date Type Department Care Team Description 06/21/2018 Office Visit Endocrinology at [facility] Donell Hernandez, CKD (chronic kidney disease) stage 3, GFR 30-59 ml/min; [facility] S/P bilateral BKA (below knee amputation ); [facility] Type 2 diabetes mellitus wit h complication, with long-term current use of insulin; [place] [address] CENTER Adult BMI 37.0-37.9 kg/sq m; [phone] ENDOCRINOLOGY History of yaniv al transplant DEPT. [place], [place] [address] Social History Tobacco Use Types [...] fitted for because of problems with the cream ripener device. He hopes to be more active [...] last Cr: today last lipid panel:2011 regular office support clerk:no special shoes:no flu shot :yes pneumovax: 2011 [...] gauge x 1/2 Needle 1 Device by [facility].(Non- Drug; Combo Route) route [...] lungs daily. 1 ??? Miscellaneous Medical Supply [facility] 4 Devices by [facility].(Non-Drug; Combo Route) route daily. [...] Rojas MD [facility] Neurology [place], [place] [phone] (Wo rk) 06/29/2022 Appointment Cardiology Violetta Sanford M D [address] [place] [address] (Wo rk) 06/30/2022 Infusion Hematology and Oncology 07/14/2022 Infusion Hematology and Oncology 07/28/2022 Infusion Hematology and Oncology 08/11/2022 Infusion Hematology and Oncology 08/16/2022 Office Visit Audiology Mindy Moody AUD [facility] AUDIOLOGY DEPT [place], [place] [address] (Wo rk) 11/04/2022 Office Visit Rheumatology Dante Freedman, PA [facility] RHEUMATOLOGY [place], [place] [address] (Wo rk) documented as of this encounter [...] transplant documented in this encounter Care Teams Grievance Manager Relationship Specialty Start Date End Date Violetta Sanford MD PCP - General 04/02/14 [address] [place] [address] documented as of this encounter
--- OUTSIDE RECORDS SUMMARY | 2022-06-16 12:27 | XMS_ITS | Encounter Summary ---
:1955 Author Organization [facility] [place] [address] Care Team Providers Name Role Phone Violetta Sanford MD Primary Care Provider Encounter Details Date Type Department Care Team Description 06/26/[address] [facility] Shivam Rojas Tremor, essential; [facility] MD James Neuropathic pain; Drive [facility] Diabetic polyneuropathy asso ciated with type 2 [place] [address] Neurology [phone] [place] [address] Social History Tobacco Use Types Packs/Day Years [...] and therapeutic planning. Shivam Rojas MD 06/26/2019 Kindergarten Assistant General Neurology and Clinical Neurophysiology [facility] Department of Neurology documented in this encounter Plan of Treatment Upcoming Encounters Date Type Specialty Care Team Description 06/16/2022 Infusion Hematology and Oncology 06/21/2022 Office Visit Neurology Tyler Rojas MD [facility] Neurology [place], [place] [phone] (Wo rk) 06/29/2022 Appointment Cardiology Violetta Sanford M D [address] [place] [address] (Wo rk) 06/30/2022 Infusion Hematology and Oncology 07/14/2022 Infusion Hematology and Oncology 07/28/2022 Infusion Hematology and Oncology 08/11/2022 Infusion Hematology and Oncology 08/16/2022 Office Visit Audiology Mindy Moody AUD [facility] AUDIOLOGY DEPT [place], [place] [address] (Wo rk) 11/04/2022 Office Visit Rheumatology Dante Freedman PA [facility] RHEUMATOLOGY [place], [place] [address] (Wo rk) documented as of this encounter Visit Diagnoses Diagnosis Tremor, essential Essential and other specified forms of t remor Neuropathic pain Neuralgia, neuritis, and radiculitis, un specified Diabetic polyneuropathy associated with type 2 diabetes mellitus documented in this encounter Care Teams Electrical Experimental Mechanic Relationship Specialty Start Date End Date Violetta Sanford MD PCP - General 04/02/14 [address] [place] [address] documented as of this encounter
--- OUTSIDE RECORDS SUMMARY | 2022-06-16 12:27 | XMS_ITS | Encounter Summary ---
:1955 Author Organization [place] [address] Care Team Providers Name Role Phone Violetta Sanford MD Primary Care Provider Reason for Visit Reason Comments Medication Refill Encounter Details Date Type Department Care Team Description 03/13/2019 Refill Solid Organ Transplant at [facility] Alejo france MD [facility] Giovana tyler [place] [address] [place] [address] [phone] (Wo rk) Social History Tobacco Use Types [...] Tyler Rojas MD [facility] Neurology [place], [place] [phone] (Wo rk) 06/29/2022 Appointment Cardiology Violetta Sanford M D [address] [place] [address] (Oscar rk) 06/30/2022 Infusion Hematology and Oncology 07/14/2022 Infusion Hematology and Oncology 07/28/2022 Infusion Hematology and Oncology 08/11/2022 Infusion Hematology and Oncology 08/16/2022 Office Visit Audiology Mindy Moody AUD [facility] AUDIOLOGY [place], [place] [address] (Wo rk) 11/04/2022 Office Visit Rheumatology Dante Freedman PA [facility] RHEUMATOLOGY [place], [place] [address] (Wo rk) documented as of this encounter Visit Diagnoses Not on filedocumented in this encounter Care Teams Glass Lathe Operator Relationship Specialty Start Date End Date Violetta Sanford MD PCP - General 04/02/14 [address] [place] [address] documented as of this encounter
--- OUTSIDE RECORDS SUMMARY | 2022-06-16 12:27 | XMS_ITS | Encounter Summary ---
:1955 Author Organization [facility] [place] [address] Care Team Providers Name Role Phone Violetta Sanford MD Primary Care Provider Encounter Details Date Type Department Care Team Description 06/26/2019 Laboratory Lab 3L Sylvia Transplanted berta ryan; Appointment [facility] Aftercare following organ transplant; Hospital Prophylactic [place] [phone] Social History Tobacco Use Types Packs/Day Years [...] Rojas MD [facility] Neurology [place], [place] [phone] (Wo rk) 06/29/2022 Appointment Cardiology Violetta Sanford M D [facility] [address] [place], [place] [address] (Oscar rk) 06/30/2022 Infusion Hematology and Oncology 07/14/2022 Infusion Hematology and Oncology 07/28/2022 Infusion Hematology and Oncology 08/11/2022 Infusion Hematology and Oncology 08/16/2022 Office Visit Audiology Mindy Moody AUD ONE [facility] AUDIOLOGY DEPT [place], [place] [address] (Wo rk) 11/04/2022 Office Visit Rheumatology Dante Freedman PA [facility] RHEUMATOLOGY [place], [place] [address] (Wo rk) documented as [...] Results Differential, Automated (06/26/2019 8:02 AM EST) athologist Signature Neutrophils % 49.0 % [facility] LABOR[facility]ORY Neutr Abs (ANC) 3.75 1.70 - [facility] 6.10 [facility] x10(3)/[facility] LABORATORY Lymphocytes % 35.4 % [facility] Lymphocytes Abs 2.7 0.9 - 3.2 [facility] x10(3)/[facility] LABORATORY Monocytes % 10.2 % [facility] Monocyte Abs 0.8 0.3 - 0.9 [facility] x10(3)/[facility] LABORATORY Eosinophils % 4.3 % [facility] Eosinophils Abs 0.3 0.0 - 0.4 [facility] x10(3)/[facility] LABORATORY Basophils % 0.8 % [facility] Basophils Abs 0.1 0.0 - 0.1 [facility] x10(3)/[facility] LABORATORY Immature Gran % 0.30 % [facility] Comment: Immature granulocytes(IG's)percentage an d absolute count will include metamyelocytes, myelocytes, and promyelo cytes. Blood smears from CBCs yielding IG's will be scanned manually for volodymyr carter. If this scan disagrees with the automated IG or if promyelocytes are not ed, a manual differential will be performed. Courtney Gran Abs 0.02 0.00 - 0.04 x10(3)/[facility] LAB[facility]ORY Specimen Anatomical Collection Method Collection Time Receive d Time (Source) Location / / Volume Laterality Blood specimen 06/26/2019 8:02 AM 019 8:11 (specimen) EST AM EST Resulting Agency Comment Spec In Lab Alejo Garnett MD HEMATOLOGY ORDERABLES Performing Organization Address City/State/[place] [address] (ABNORMAL) Hemogram (06/26/2019 8:02 AM EST) Analysis Performed At Patho logist Time Signature WBC 7.6 4.0 - 9.5 [facility] x10(3)/[facility] LABORATORY RBC 3.85 (L) 4.58 - [facility].54 [facility] x10(6)/[facility] LABORATORY Hemoglobin 11.6 (L) 13.7 - [facility] 16.5 gm/dL [facility] Hematocrit 37.7 (L) 40.5 - [facility] 48.5 % [facility] MCV 97.9 (H) 82.9 - [facility].1 [facility] LABORATORY MCH 30.1 27.5 - [facility] 32.1 pg [facility] MCHC 30.8 (L) 32.0 - [facility] 35.7 gm/dL [facility] Platelets 226 145 - 357 [facility] x10(3)/[facility] LABORATORY RDWSD 50.1 (H) 36.0 - [facility] 45.0 [facility] LABORATORY RDWCV 14.1 (H) 11.4 - [facility] 13.8 % [facility] MPV 8.5 7.6 - 12.9 [facility] LABORATORY nRBC % Auto 0.0 % [facility] nRBC Abs Auto 0.000 0.000 - [facility] 0.000 [facility] x10(3)/[facility] LABORATORY Specimen Anatomical Collection Method Collection Time Receive d Time (Source) Location / / Volume Laterality Blood specimen 06/26/2019 8:02 AM 019 8:11 (specimen) EST AM EST Resulting Agency Comment Spec In Lab Alejo Garnett MD HEMATOLOGY ORDERABLES Performing Organization Address City/State/[place] [address] (ABNORMAL) Hemoglobin A1c (06/26/2019 8:02 AM EST) Analysis Performed At Patho logist Time Signature Hemoglobin A1C 9.0 (H) 4.3 - 5.6 [facility] [...] Mellitus, Diabetes Care 2013; 36: Suppl. 1, S67-83 Est Avg Gluc 212 mg/dL [facility] LABORATORY Comment: eAG equivalents for HbA1c percentages: HbA1c(%) ?eAG(mg/dL) 6.0 ?126 6.5 ?140 7.0 ?154 7.5 ?169 8.0 ?183 8.5 ?197 9.0 ?212 9.5 ?226 10.0 ? 240 Limitations: The eAG calculation has not been validated on women, individuals below 18 years old and above 70 years old, and individuals with hemoglobinopathies. Additional resources are available on [facility] website. Scooby MALDONADO, Nba J, Sydnee R, et al. ??Tr anslating the A1C assay into estimated average glucose values. ??Diabetes Care 2008:31(8):8999-4335. Specimen Anatomical Collection Method Collection Time Receive d Time (Source) Location / / Volume Laterality Blood specimen 06/26/2019 8:02 AM 019 8:11 (specimen) EST AM EST Resulting Agency Comment Spec In Lab Alejo Garnett MD CHEMISTRY ORDERABLES Performing Organization Address City/[facility]/[place] [address] (ABNORMAL) Reticulocyte Count (06/26/2019 8:02 AM EST) Patholo gist Method Time Signature Retic Ct % 2.6 0.7 - 2.6 [facility] % [facility] LABORATORY Retic Ct Abs 0.100 0.030 - [facility] 0.120 [facility] x10(6)/ HOSPITAL L LABORATORY Immature Retic% 20.4 (H) 0.0 - [facility] 15.6 % [facility] Reticulated Hgb 30.5 (L) 31.3 - [facility] 40.2 pg [facility] Specimen Anatomical Collection Method Collection Time Receive d Time (Source) Location / / Volume Laterality Blood specimen 06/26/2019 8:02 AM 019 8:11 (specimen) EST AM EST Resulting Agency Comment Spec In Lab Alejo Garnett MD HEMATOLOGY ORDERABLES Performing Organization Address City/[facility]/ZIP [facility] [place] [address] (ABNORMAL) Comprehensive metabolic panel (non-fasting) (06/26/2019 8:02 AM EST) P athologist Signature Glucose Lvl 87 65 - 199 [facility] mg/dL [facility] Comment: Diabetes: >=200 mg/dL plus symp toms BUN 26 (H) 10 - 20 mg/dL [facility]ORATORY Creatinine 1.98 (H) 0.80 - 1.50 mg/dL [facility] LABORATORY Sodium 142 135 - 145 mmol/L [facility]OR[facility] Potassium 4.7 3.5 - 5.0 mmol/L [facility] Comment: Please note: ??Patients with WBC >100,00 0 may have falsely elevated Potassium levels. ??For accurate Potassium quantif ication in these patients send serum separator tube (gold top) for subsequent determinations. ??Contact the Clinical Chemistry Laboratory if there are any qu estions. Chloride 109 (H) 98 - 107 mmol/L [facility] CO2 20 (L) 22 - 31 mmol/L [facility] Anion Gap 13 5 - 15 mmol/L [facility]OR[facility]ORY Calcium 9.3 8.5 - 10.5 mg/dL [facility] Total Protein 7.8 6.1 - 8.0 gm/dL [facility] Albumin 3.4 3.2 - 5.2 gm/dL [facility] AST 18 0 - 39 unit/L [facility] ALT 15 0 - 55 unit/L [facility]OR[facility]ORY Alk Phos 147 (H) 40 - 130 unit/L [facility] Total Bilirubin 0.4 0.2 - 1.3 mg/dL [facility] LABORATORY Estimated GFR 34 (L) >=60 mL/min/1.73 m?? [facility] Comment: The eGFR was calculated using the CKD-EP I equation. As with all creatinine based estimates of kidney function, eGFR values calculated with the CKD-EPI equation are not accurate in patients wi th acute kidney failure, extremes of body mass or the acutely ill. http://[employer].[email or web address]/DHMCnkf eGFR 40 (L) >=60 mL/min/1.73 m?? [facility] Comment: The eGFR was calculated using the CKD-EP I equation. As with all creatinine based estimates of kidney function, eGFR values calculated with the CKD-EPI equation are not accurate in patients wi th acute kidney failure, extremes of body mass or the acutely ill. http://[employer]DHMCnkf Specimen Anatomical Collection Method Collection Time Receive d Time (Source) Location / / Volume Laterality Blood specimen 06/26/2019 8:02 AM 019 8:11 (specimen) EST AM EST Resulting Agency Comment Spec In Lab Alejo Garnett MD CHEMISTRY ORDERABLES Performing Organization Address City/State/[place] [address] Lipid Panel (Reflex Direct LDL) (06/26/2019 8:02 AM EST) athologist Signature Chol, Total 88 mg/dL [facility] Comment: Lower Risk: <200 mg/dL Average Risk: 200-239 mg/dL Higher Risk: >ui=770 mg/dL Triglycerides 222 mg/dL [facility] Comment: Average Risk/Lower Risk: <150 mg/dL Borderline High Risk: 150-199 mg/dL High Risk: 200-499 mg/dL Very High Risk: >ld=370 mg/dL HDL 23 mg/dL [facility] Comment: Males: ?? Higher Risk: <40 mg/dL Females: ?? HIgher Risk: <50 mg/dL LDL Cholesterol 21 mg/dL [facility] Comment: Lowest Risk: <100 mg/dL Lower Risk: 100-129 mg/dL Borderline High Risk: 130-159 mg/dL High Risk: 160-189 mg/dL Very High Risk: >pw=725 mg/dL Chol/HDL Ratio 3.8 ratio [facility] Lipid Interpretation See Note [facility] LABOR[facility]ORY Comment: Lipid management should be guided by a p atient? s ASCVD risk, goals and preferences. ACC/AHA Guidelines recommend high intens ity statin if clinical ASCVD or LDL greater than or equal to 190 mg/dL. http://Aicenturl.InsideAxis™/KUB-DVX-Wzcpxlpul Adults aged 40-75 with LDL 70-189 mg/dL should have their 10 year ASCVD risk estimated with the ACC/AHA ASCVD risk es timator http://tools.acc.org/TEJCH-Zxqb-Qqrzhgfr r/ Statin should be discussed if risk [...] MD CHEMISTRY ORDERABLES Performing Organization Address City/[facility]/ZIP Code Phon e Number [address] Phosphorus (06/26/2019 8:02 AM EST) P athologist Signature Phosphorus 3.5 2.5 - 4.5 SYLVIA CUEVASMELI mg/dL [facility] LABORATORY Specimen Anatomical Collection Method Collection Time Receive d Time (Source) Location / / Volume Laterality Blood specimen 06/26/2019 8:02 AM 019 8:11 (specimen) EST AM EST Resulting Agency Comment Spec In Lab Alejo Garnett MD CHEMISTRY ORDERABLES Performing Organization Address City/[facility]/[place] [address] (ABNORMAL) Magnesium (06/26/2019 8:02 AM EST) P athologist Signature Magnesium 0.68 (L) 0.69 - 1.07 [facility] mmol/L [facility]ORY Specimen Anatomical Collection Method Collection Time Receive d Time (Source) Location / / Volume Laterality Blood specimen 06/26/2019 8:02 AM 019 8:11 (specimen) EST AM EST Resulting Agency Comment Spec In Lab Alejo Garnett MD CHEMISTRY ORDERABLES Performing Organization Address City/[facility]/ZIP [place] [address] Uric acid (06/26/2019 8:02 AM EST) athologist Signature Uric Acid 8.2 3.5 - 8.5 SYLVIA MUROCOCK mg/dL [facility]OR[facility] Specimen Anatomical Collection Method Collection Time Receive d Time (Source) Location / / Volume Laterality Blood specimen 06/26/2019 8:02 AM 019 8:11 (specimen) EST AM EST Resulting Agency Comment Spec In Lab Alejo Garnett MD CHEMISTRY ORDERABLES Performing Organization Address City/State/ZIP Code Phon e Number [address] (ABNORMAL) PTH (06/26/2019 8:02 AM EST) athologist [facility] PTH 140 (H) 15 - 65 SYLVIA MUROCOCK pg/mL [facility]OR[facility]ORY Specimen Anatomical Collection Method Collection Time Receive d Time (Source) Location / / Volume Laterality Blood specimen 06/26/2019 8:02 AM 019 8:11 (specimen) EST AM EST Resulting Agency Comment Spec In Lab Alejo Garnett MD CHEMISTRY ORDERABLES Performing Organization Address City/State/ZIP Code Phon e Number [address] Vitamin D, 25-Hydroxy (06/26/2019 8:02 AM EST) athologist [facility] 25-OH Vit D 34 30 - 100 SYLVIA GARRISON Total ng/mL [facility] Comment: As of 2019, 25-hydroxyvitamin D elizabeth prettyg has moved from the IDS-iSYS to the Naz Kendell. No substantial change in me asured values is expected. Specimen Anatomical Collection Method Collection Time Receive d Time (Source) Location / / Volume Laterality Blood specimen 06/26/2019 8:02 AM 019 8:11 (specimen) EST AM EST Resulting Agency Comment Spec In Lab Alejo Garnett MD CHEMISTRY ORDERABLES Performing Organization Address City/State/ZIP Code Phon e Number [address] (ABNORMAL) 1,25-dihydroxycholecalciferol (06/26/2019 8:02 AM EST) P athologist Signature Vit D 1,25 17 (L) 18 - 64 [facility] pg/mL [facility] Comment: ADDITIONAL INFORMATIO N This test was developed and its performa nce characteristics determined by [facility] in a manner co nsistent with CLIA requirements. This test has not been carlos ared or approved by the U.S. Food and Drug Administration. Test Performed by: [facility] [address] [place] [address] Director Medical Writing: Van White M.D. Ph. D.; CLIA# [id number] Specimen Anatomical Collection Method Collection Time Receive d Time (Source) Location / / Volume Laterality Blood specimen 06/26/2019 8:02 AM 019 (specimen) EST 11:15 AM EST Resulting Agency Comment Spec In Lab Alejo Garnett MD CHEMISTRY ORDERABLES Performing Organization Address City/State/ZIP Code Phon e Number [address] Gold Tube HOLD (06/26/2019 8:02 AM EST) P athologist Signature Gold Hold Sample in [facility]. [facility] Specimen Anatomical Collection Method Collection Time Receive d Time (Source) Location / / Volume Laterality Blood specimen 06/26/2019 8:02 AM 019 8:11 (specimen) EST AM EST Alejo Garnett MD CHEMISTRY ORDERABLES Performing Organization Address City/[facility]/ZIP Code Phon e Number [address] Lavender Tube HOLD (06/26/2019 8:02 AM EST) Patholo gist Method Time Signature Lavender Hold Sample in [facility]. [facility] Specimen Anatomical Collection Method Collection Time Receive d Time (Source) Location / / Volume Laterality Blood specimen 06/26/2019 8:02 AM 019 8:11 (specimen) EST AM EST Alejo Garnett MD HEMATOLOGY ORDERABLES Performing Organization Address City/State/ZIP Code Phon e Number [place] [phone] LAB[address] Tacrolimus level (06/26/2019 8:02 AM EST) P athologist Signature Tacrolimus Lvl 5.4 ng/mL [facility] Comment: Trough therapeutic: ??5-15 ng/mL Performed by ultra-performance liquid ch romatography tandem mass spectrometry (UPLCMS/MS). This test was developed and its performa nce characteristics determined by [facility]. It has not been cleared [...] Organization Address City/State/[place] [address] documented in this encounter Visit Diagnoses Diagnosis Transplanted kidney Kidney replaced by transplant Aftercare following organ transplant Prophylactic immunotherapy Need for prophylactic immunotherapy documented in this encounter Care Teams Pony Cylinder Press Operator Relationship Specialty Start Date End Date Violetta Sanford MD PCP - General 04/02/14 [address] [place] [address] documented as of this encounter
--- OUTSIDE RECORDS SUMMARY | 2022-06-16 12:27 | XMS_ITS | Encounter Summary ---
:1955 Author Organization [facility] [place] [address] Care Team Providers Name Role Phone Violetta Sanford MD Primary Care Provider Encounter Details Date Type Department Care Team Description 06/27/2019 Telephone [place] [facility] [place]ivam Rojas [place] [facility] [place] [address] Neurology [phone] [place], [place] [phone] (Wo rk) Social History [...] Tyler Rojas MD [facility] Neurology [place], [place] [phone] (Wo rk) 06/29/2022 Appointment Cardiology Violetta Sanford M D [address] [address] (Wo rk) 06/30/2022 Infusion Hematology and Oncology 07/14/2022 Infusion Hematology and Oncology 07/28/2022 Infusion Hematology and Oncology 08/11/2022 Infusion Hematology and Oncology 08/16/2022 Office Visit Audiology Mindy Moody AUD [facility] [place]UDIOLOGY [place], [place] [address] (Wo rk) 11/04/2022 Office Visit Rheumatology Dante Freedman PA [facility] RHEUMATOLOGY [place], [place] [address] (Wo rk) documented as of this encounter Visit Diagnoses Not on filedocumented in this encounter Care Teams Sheet Rock Installer Relationship Specialty Start Date End Date Violetta Sanford MD PCP - General 04/02/14 [address] [facility] [address] [place] [address] documented as of this encounter
--- OUTSIDE RECORDS SUMMARY | 2022-06-16 12:27 | XMS_ITS | Encounter Summary ---
:1955 Author Organization [facility] [place] [address] Care Team Providers Name Role Phone Violetta Sanford MD Primary Care Provider Encounter Details Date Type Department Care Team Description 07/17/2019 External Results [place] [facility] [place] Rojas [facility] [place] [address] Neurology [phone] [place], [place] [address] (Wo rk) Social History Tobacco [...] Tyler Rojas MD [facility] Dr [address] [place], [place] [phone] (Wo rk) 06/29/2022 Appointment Cardiology Violetta Sanford M D [address] [place] [address] (Wo rk) 06/30/2022 Infusion Hematology and Oncology 07/14/2022 Infusion Hematology and Oncology 07/28/2022 Infusion Hematology and Oncology 08/11/2022 Infusion Hematology and Oncology 08/16/2022 Office Visit Audiology Mindy Moody AUD [facility] AUDIOLOGY DEPT [place], [place] [address] (Wo rk) 11/04/2022 Office Visit Rheumatology Dante Freedman PA [facility] RHEUMATOLOGY [place], [place] [address] (Wo rk) [...] on filedocumented in this encounter Care Teams Fur Pointer Relationship Specialty Start Date End Date Violetta Sanford MD PCP - General 04/02/14 [address] [place] [address] documented as of this encounter
--- OUTSIDE RECORDS SUMMARY | 2022-06-16 12:27 | XMS_ITS | Encounter Summary ---
:1955 Author Organization [facility] [place] [address] Care Team Providers Name Role Phone Violetta Sanford MD Primary Care Provider Encounter Details Date Type Department Care Team Description 06/13/2019 Orders Only Solid Organ Transplant Andrae Dooley , Transplanted kidney at [facility] [place] [address] Social History Tobacco Use Types Packs/Day Years [...] Rojas MD [facility] Neurology [place], [place] [phone] (Wo rk) 06/29/2022 Appointment Cardiology Violetta Sanford M D [address] [place], [place] [address] (Wo rk) 06/30/2022 Infusion Hematology and Oncology 07/14/2022 Infusion Hematology and Oncology 07/28/2022 Infusion Hematology and Oncology 08/11/2022 Infusion Hematology and Oncology 08/16/2022 Office Visit Audiology Mindy Moody, [facility] AUDIOLOGY DEPT [place], [place] [address] (Wo rk) 11/04/2022 Office Visit Rheumatology Dante Freedman, PA [facility] RHEUMATOLOGY [place], [place] 0[address] (Wo rk) documented as of this encounter Visit Diagnoses Diagnosis Transplanted kidney Kidney replaced by transplant documented in this encounter Care Teams [employer] History Teacher Relationship Specialty Start Date End Date Violetta Sanford MD PCP - General 04/02/14 [address] [place] [address] documented as of this encounter
--- OUTSIDE RECORDS SUMMARY | 2022-06-16 12:27 | XMS_ITS | Encounter Summary ---
:1955 Author Organization [facility] [place] [address] Care Team Providers Name Role Phone Violetta Sanford MD Primary Care Provider Encounter Details Date Type Department Care Team Description 05/26/2018 Notes Only Solid Organ Transpla nt at [facility] [place] [address] Social History Tobacco Use Types Packs/Day [...] Calderon - 05/26/2018 3:58 PM EDT Transplant Good[employer] Ambassador Note: Called patient to review pharmacy options for brand Prograf, call went to , left message requesting that he call back. Addendum: 05/29/2018, Mr. Torres called back. He stated that he is all set using [facility]. I explained that we are not [...] Rojas MD [facility] Neurology [place], [place] [phone] (Wo rk) 06/29/2022 Appointment Cardiology Violetta Sanford M D [address] [place], [place] [address] (Wo rk) 06/30/2022 Infusion Hematology and Oncology 07/14/2022 Infusion Hematology and Oncology 07/28/2022 Infusion Hematology and Oncology 08/11/2022 Infusion Hematology and Oncology 08/16/2022 Office Visit Audiology Mindy Moody AUD [facility] AUDIOLOGY [place], [place] [address] (Wo rk) 11/04/2022 Office Visit Rheumatology Dante Freedman PA [facility] RHEUMATOLOGY [place], [place] [address] (Wo rk) documented as of this encounter Visit Diagnoses Not on filedocumented in this encounter Care Teams Ceiling Cleaner Relationship Specialty Start Date End Date Violetta Sanford MD PCP - General 04/02/14 [address] [place], [place] [address] documented as of this encounter
--- OUTSIDE RECORDS SUMMARY | 2022-06-16 12:27 | XMS_ITS | Encounter Summary ---
:1955 Author Organization [facility] [place] [address] Care Team Providers Name Role Phone Violetta Sanford MD Primary Care Provider Encounter Details Date Type Department Care Team Description 06/27/2019 Telephone Neurology at [facility] Shivam Rojas MD [facility] [place] [address] Neurology [phone] [place], [place] [phone] (Wo rk) Social History [...] have his levels checked every week at [facility]. I told him I would send them the labrequests for his blood draws for the next month to start with. I will also tell the lab at [facility] to have the results sent to us at [facility] neurology. He stated he would start to take half tab as ordered and keep that dose until we get the lab resultsand get back to him. He stated that he would get his labs drawn every Tuesday or Tuesday. Lab requests sent to [facility] lab. documented in this encounter Plan of Treatment Upcoming Encounters Date Type Specialty Care Team Description 06/16/2022 Infusion Hematology and Oncology 06/21/2022 Office Visit Neurology Tyler Rojas MD [facility] Neurology [place] [address] [phone] (Wo rk) 06/29/2022 Appointment Cardiology Violetta Sanford M D [address] [place], [place] [address] (Wo rk) 06/30/2022 Infusion Hematology and Oncology 07/14/2022 Infusion Hematology and Oncology 07/28/2022 Infusion Hematology and Oncology 08/11/2022 Infusion Hematology and Oncology 08/16/2022 Office Visit Audiology Mindy Moody AUD [facility] AUDIOLOGY DEPT [place], [place] [address] (Wo rk) 11/04/2022 Office Visit Rheumatology Dante Freedman PA [facility] RHEUMATOLOGY [place], [place] [address] (Wo rk) documented as of this encounter Visit Diagnoses Diagnosis Neuropathic pain Neuralgia, neuritis, and radiculitis, un specified Tremor, essential Essential and other specified forms of t remor Diabetic polyneuropathy associated with type 2 diabetes mellitus documented in this encounter Care Teams Technical Staff Engineer Relationship Specialty Start Date End Date Violetta Sanford MD PCP - General 04/02/14 [address] [place], [place] [address] documented as of this encounter
--- OUTSIDE RECORDS SUMMARY | 2022-06-16 12:27 | XMS_ITS | Encounter Summary ---
:1955 Author Organization [facility] [place] [address] Care Team Providers Name Role Phone Violetta Sanford MD Primary Care Provider Encounter Details Date Type Department Care Team Description 07/10/2019 Telephone Neurology at [facility] Shivam Rojas MD [facility] [place] [address] Neurology [phone] [place], [place] [phone] (Wo rk) Social History Tobacco Use [...] Telephone Encounter - Aliza Joseph RN - 07/10/2019 3:23 PM EST Called [facility] laboratory and obtained results for the prograf level drawn on 07/09/19. The result is 5.2 nanograms/ml. Results sent to and . documented in this encounter Plan of Treatment Upcoming Encounters Date Type Specialty Care Team Description 06/16/2022 Infusion Hematology and Oncology 06/21/2022 Office Visit Neurology Tyler Rojas MD [facility] [address] [place], [place] [phone] (Wo rk) 06/29/2022 Appointment Cardiology Violetta Sanford M D [address] [place] [address] (Wo rk) 06/30/2022 Infusion Hematology and Oncology 07/14/2022 Infusion Hematology and Oncology 07/28/2022 Infusion Hematology and Oncology 08/11/2022 Infusion Hematology and Oncology 08/16/2022 Office Visit Audiology Mindy Moody AUD [facility] AUDIOLOGY DEPT [place], [place] [address] (Wo rk) 11/04/2022 Office Visit Rheumatology Dante Freedman PA [facility] RHEUMATOLOGY [place], [place] [address] (Wo rk) documented as of this encounter Visit Diagnoses Not on filedocumented in this encounter Care Teams Loan Auditor Relationship Specialty Start Date End Date Violetta Sanford MD PCP - General 04/02/14 [address] [place], [place] [address] documented as of this encounter
--- OUTSIDE RECORDS SUMMARY | 2022-06-16 12:27 | XMS_ITS | Encounter Summary ---
:1955 Author Organization [facility] [place] [address] Care Team Providers Name Role Phone Violetta Sanford MD Primary Care Provider Encounter Details Date Type Department Care Team Description 06/26/2019 Hospital Encounter [place] [facility] Kelvin Desir MD [facility] [place] [address] TRANSPLANT [phone] [place] [address] Social History Tobacco Use Types Packs/Day Years [...] 48 Take one tablet every 30 tablet 11 09/201808/16/2019 mg Tablet evening with 25 mg [...] Tyler Rojas MD [facility] Neurology [place], [place] [phone] (Wo rk) 06/29/2022 Appointment Cardiology Violetta Sanford M D [address] [place] [address] (Wo rk) 06/30/2022 Infusion Hematology and Oncology 07/14/2022 Infusion Hematology and Oncology 07/28/2022 Infusion Hematology and Oncology 08/11/2022 Infusion Hematology and Oncology 08/16/2022 Office Visit Audiology Mindy Moody AUD [facility] AUDIOLOGY DEPT [place], [place] [address] (Wo rk) 11/04/2022 Office Visit Rheumatology Dante Freedman PA [facility] RHEUMATOLOGY [place], [place] [address] (Wo rk) documented as of this encounter Procedures Procedure Name Priority Date/Time Associated Diagnosis Comme nts US RENAL TRANSPLANT STAT 06/26/2019 9:43 AM Transplanted ki connor Results for this LEFT EST procedure are [...] questions regarding this report, please contact t elton number below. 10 :08 AM ? Phyllis Gilmore, Staff Physician Electronically Signed Final Report ?? 10:15 am Narrative 06/26/2019 10:15 AM EST Transplant ? (Signed Final 06/26/2019 10:15 am) PATIENT INFO: ID #: ? [id number] ? : [birth year] (64 yrs) Name: ? LEROY Sania BLANDONASIM ?Visit Date:06/26/2019 09:43 am PERFORMED BY: Performed By: ? Sindy Nunes RDMS Attending: ?Deirdre HAWK, Phyllis Rosa Resident: ? Jamshid HAWK, Ruth Gonzalez Referred By: ?KELVIN Hayes Location: ? [place] SERVICE(S) PROVIDED: ??URTPL - Renal Transplant - Left - IMG [id number] ?[id number] INDICATIONS: ??rise in creatinine with concern of [...] 10: 15 am) PATIENT INFO: ID #: [id number] : [birth year] (64 y rs) Name: LEROY DAILEY Visit Date:06/26 09:43 am PERFORMED BY: Performed By: Sindy Nunes RDMS Attending: Deirdre HAWK, Phyllis Rosa Resident: Ruth Breen MD Referred By: KELVIN GARNETT Location: [place] SERVICE(S) PROVIDED: URTPL - Renal Transplant - Left - [id number] INDICATIONS: rise in creatinine with concern of [...] Report 06/26 10:15 am [facility] documented in this encounter Visit Diagnoses Diagnosis Transplanted kidney Kidney replaced by transplant documented in this encounter Care Teams Potter Or Ceramic Artist Relationship Specialty Start Date End Date Violetta Sanford MD PCP - General 04/02/14 [address] [place] [address] documented as of this encounter
--- OUTSIDE RECORDS SUMMARY | 2022-06-16 12:27 | XMS_ITS | Encounter Summary ---
:1955 Author Organization [facility] [place] [address] Care Team Providers Name Role Phone Violetta Sanford MD Primary Care Provider Encounter Details Date Type Department Care Team Description 06/26/2019 Office Visit Solid Organ Transpla [place] [facility] [place] [address] Social History Tobacco Use Types Packs/Day Years Used Date Smoking Tobacco: Former Cigarettes 2 20 Quit : 01/19/1993 Smokeless Tobacco: Never Alcohol Use Standard Drinks/Week Comments Yes 0 (1 standard drink = 0.6 oz pure alcoho l) Once a year Sex Assigned at Date Recorded Not on file documented as of this encounter Progress Notes Geovanna Mason, RD - 06/26/2019 10:40 AM EST [facility] Post Transplant Nutrition Follow Up Date: 06/26/2019 Patient: Leroy Torres Transplant Date: 02/29/08 [place] [facility] diagnosis: Diabetes Mellitus - Type [...] for contact should questions arise. Encouraged patient tobegin to work on the sodium intake primarily; [...] Rojas MD [facility] Neurology [place], [place] [phone] (Wo rk) 06/29/2022 Appointment Cardiology Violetta Sanford M D [address] [place], [place] [address] (Wo rk) 06/30/2022 Infusion Hematology and Oncology 07/14/2022 Infusion Hematology and Oncology 07/28/2022 Infusion Hematology and Oncology 08/11/2022 Infusion Hematology and Oncology 08/16/2022 Office Visit Audiology Mindy Moody AUD [facility] AUDIOLOGY [place], [place] [address] (Wo rk) 11/04/2022 Office Visit Rheumatology Dante Freedman PA [facility] RHEUMATOLOGY [place], [place] [address] (Wo rk) documented as of this encounter Visit Diagnoses Diagnosis Dietary counseling Dietary surveillance and counseling documented in this encounter Care Teams Chicken Cleaner Relationship Specialty Start Date End Date Violetta Sanford MD PCP - General 04/02/14 [address] [place], [place] [address] documented as of this encounter
--- OUTSIDE RECORDS SUMMARY | 2022-06-16 12:27 | XMS_ITS | Encounter Summary ---
:1955 Author Organization [facility] [place] [address] Care Team Providers Name Role Phone Violetta Sanford MD Primary Care Provider Encounter Details Date Type Department Care Team Description 03/20/2019 Orders Only Solid Organ Transplant Sherry Abad RN H /[place] [address] Social History Tobacco Use Types Packs/Day [...] Tyler Rojas MD [facility] Neurology [place], [place] [phone] (Wo rk) 06/29/2022 Appointment Cardiology Violetta Sanford M D [address] [place], [place] [id number] (Oscar rk) 06/30/2022 Infusion Hematology and Oncology 07/14/2022 Infusion Hematology and Oncology 07/28/2022 Infusion Hematology and Oncology 08/11/2022 Infusion Hematology and Oncology 08/16/2022 Office Visit Audiology Mindy Moody, WENDI [facility] AUDIOLOGY DEPT [place], [place] [address] (Wo rk) 11/04/2022 Office Visit Rheumatology Dante Freedman PA [facility] RHEUMATOLOGY [place], [place] [address] (Wo rk) Scheduled Orders Name Type Priority Associated Diagnoses Order S chedule Protein/Creatinine Lab STAT H/O kidney transplant Expected: 03/21/2019, Ratio, urine Expires: 2020 documented as of this encounter Results Magnesium, urine, random (03/21/2019 9:21 AM EDT) athologist Signature U Mg Ran 2.21 mmol/L [facility] Specimen Anatomical Collection Method Collection Time Receive d Time (Source) Location / / Volume Laterality Urine specimen 03/21/2019 9:21 AM 019 9:34 (specimen) EDT AM EDT Resulting Agency Comment Spec In Lab Alejo Garnett MD URINE ORDERABLES Performing Organization Address City/State/[place] [address] (ABNORMAL) Protein/Creatinine Ratio, urine (03/21/2019 9:21 AM EDT) athologist Signature U Creatinine 64 mg/dL [facility] U Protein Ran 73 (H) 0 - 12 [facility] mg/dL [facility] Prot/Cre Ratio 1.1 ratio [facility] Specimen Anatomical Collection Method Collection Time Receive d Time (Source) Location / / Volume Laterality Urine specimen 03/21/2019 9:21 AM 019 9:34 (specimen) EDT AM EDT Resulting Agency Comment Spec In Lab Alejo Garnett MD URINE ORDERABLES Performing Organization Address City/State/[place] [address] Phosphorus, urine, random (03/21/2019 9:21 AM EDT) P athologist Signature U Phosphorus 45.1 mg/dL [facility] Specimen Anatomical Collection Method Collection Time Receive d Time (Source) Location / / Volume Laterality Urine specimen 03/21/2019 9:21 AM 019 9:34 (specimen) EDT AM EDT Resulting Agency Comment Spec In Lab Alejo Garnett MD URINE ORDERABLES Performing Organization Address City/State/ZIP Code Phon e Number [address] Calcium Creatinine Ratio, random urine (03/21/2019 9:21 AM EDT) P athologist Signature U Calcium 2.0 mg/dL [facility] U Creatinine 64 mg/dL [facility] Ca/Cre Ratio 0.03 ratio [facility] Specimen Anatomical Collection Method Collection Time Receive d Time (Source) Location / / Volume Laterality Urine specimen 03/21/2019 9:21 AM 019 9:34 (specimen) EDT AM EDT Resulting Agency Comment Spec In Lab Alejo Garnett MD URINE ORDERABLES Performing Organization Address City/[facility]/ZIP Code Phon e Number [address] BKV Quant Urine (03/21/2019 9:21 AM EDT) Component Value Ref Test Analysis Performed At [facility] Range Method Time Signature BKV Urine Not Detected [facility] LABORATORY BKV Urine BK Virus Urine Result Interpretation [facility] Result: BK Virus not detected HOSPITAL Specimen type: urine LABORATOR Y Assay Range: 2.80-7.80 log copies/mL (6.28x10^2 - 6.28x10^7 copies/mL) Methods: Quantitative real-time polymerase chain react ion (PCR) of viral DNA isolated from plasma was performed using Phase III Development BKV analyte-specific reagents and the [employer] / TLL System that automates both nucleic a alonzo [...] and Advanc ed Technology (CGAT) Laboratory at [place]. It has not been cleared or approved [...] Organization Address City/State/ZIP Code Phon e Number [place] [phone] (ABNORMAL) Urinalysis with reflex Culture (03/21/2019 9:21 AM EDT) [facility] Method Time Signature Glucose UA Negative Negative [facility] mg/dL [facility] Protein UA 100 (A) Negative [facility] mg/dL [facility] Bilirubin UA Negative Negative [facility] mg/dL [facility] Comment: Clinical correlation required for positi ve Urine Bilirubin results as false positive may occur with some drugs and d rug related products. If a false positive is suspected a serum total bili reyna should be considered if clinically indicated. Urobilinogen UA Normal Normal mg/dL [facility] pH UA 6.0 5.0 - 8.0 [facility] Blood UA Negative Negative mg/dL [facility] Ketones UA Negative Negative mg/dL [facility] Nitrite UA Negative Negative [facility] Leukocytes UA Negative Negative [facility] LABORATORY Appearance UA Clear Clear [facility] Spec [place] UA 1.013 1.002 - 1.030 [facility] Color UA Yellow Yellow [facility] Culture Reflexed No [facility] Specimen (Source) Anatomical Collection Method Collection Time Re ceived Time Location / / Volume Laterality Urine specimen 03/21/2019 9:21 03/21/2019 9:34 obtained by clean AM EDT AM EDT catch procedure (specimen) Resulting Agency Comment Spec In Lab Alejo Garnett MD URINE ORDERABLES Performing Organization Address [facility]/ZIP Code Phon e Number [address] Tacrolimus level (03/21/2019 8:51 AM EDT) P athologist Signature Tacrolimus Lvl 4.6 ng/mL [facility] Comment: Trough therapeutic: ??5-15 ng/mL Performed by ultra-performance liquid ch romatography tandem mass spectrometry (UPLCMS/MS). This test was developed and its performa nce characteristics determined by [facility]. It has not been cleared [...] Garnett MD CHEMISTRY ORDERABLES Performing Organization Address City/[facility]/ZIP Code Phon e Number [place] [phone] [facility] [address] Drive 1,25-dihydroxycholecalciferol (03/21/2019 8:51 AM EDT) P athologist Signature Vit D 1,25 19 18 - 64 JERE CUEVASMELI pg/mL [facility] Comment: ADDITIONAL INFORMATIO N This test was developed and its performa nce characteristics determined by [facility] in a manner co nsistent with CLIA requirements. This test has not been carlos ared or approved by the U.S. Food and Drug Administration. Test Performed by: [facility] [address] [place] [address] [address] Carpenter Assembler: Van White M.D. Ph. D.; CLIA# [id number] Specimen Anatomical Collection Method Collection Time Receive d Time (Source) Location / / Volume Laterality Blood specimen 03/21/2019 8:51 AM 019 (specimen) EDT 11:15 AM EDT Resulting Agency Comment Spec In Lab Aleoj Garnett MD CHEMISTRY ORDERABLES Performing Organization Address City/State/ZIP Code Phon e Number [address] Lavender Tube HOLD (03/21/2019 8:51 AM EDT) Patholo gist Method Time Signature Lavender Hold Sample in [facility] LABORATORY Specimen Anatomical Collection Method Collection Time Receive d Time (Source) Location / / Volume Laterality Blood specimen 03/21/2019 8:51 AM 019 8:57 (specimen) EDT AM EDT Alejo Garnett MD HEMATOLOGY ORDERABLES Performing Organization Address City/[facility]/[place] [address] Gold Tube HOLD (03/21/2019 8:51 AM EDT) P athologist Signature Gold Hold Sample in [facility]. [facility] Specimen Anatomical Collection Method Collection Time Receive d Time (Source) Location / / Volume Laterality Blood specimen 03/21/2019 8:51 AM 019 8:57 (specimen) EDT AM EDT Alejo Garnett MD CHEMISTRY ORDERABLES Performing Organization Address City/State/ZIP Code Phon e Number [address] Vitamin D, 25-Hydroxy (03/21/2019 8:51 AM EDT) P athologist Signature 25-OH Vit D 31 30 - 100 [facility] Total ng/mL [facility] Comment: Deficient <10 ng/mL Insufficient 10 to 29 ng/mL Sufficient 30 to 100 ng/mL Potential Intoxication >100 ng/mL According to the [place] National Osteoporosi s Foundation, Vitamin D concentrations >30 ng/mL are sufficient to protect bone health. ??The National Kidney Foundation has similarly stated that pat ients with Vitamin D concentrations <30ng/mL should be considered to be insu fficient or deficient. http://Genlot.SparkLix/nkf-guidelines http://[employer]/nejm-VitD The [employer] Vitamin D Immunoassay detec [...] Garnett MD CHEMISTRY ORDERABLES Performing Organization Address City/[facility] Phon e Number [address] (ABNORMAL) PTH (03/21/2019 8:51 AM EDT) P athologist Signature PTH 92 (H) 15 - 65 JERE MELI pg/mL [facility] Specimen Anatomical Collection Method Collection Time Receive d Time (Source) Location / / Volume Laterality Blood specimen 03/21/2019 8:51 AM 019 8:57 (specimen) EDT AM EDT Resulting Agency Comment Spec In Lab Alejo Garnett MD CHEMISTRY ORDERABLES Performing Organization Address City/[facility] [place] [address] Uric acid (03/21/2019 8:51 AM EDT) P athologist Signature Uric Acid 7.5 3.5 - 8.5 JERE MELI mg/dL [facility] Specimen Anatomical Collection Method Collection Time Receive d Time (Source) Location / / Volume Laterality Blood specimen 03/21/2019 8:51 AM 019 8:57 (specimen) EDT AM EDT Resulting Agency Comment Spec In Lab Alejo Garnett MD CHEMISTRY ORDERABLES Performing Organization Address City/State/[place] [address] (ABNORMAL) Magnesium (03/21/2019 8:51 AM EDT) P athologist Signature Magnesium 0.62 (L) 0.69 - 1.07 [facility] mmol/L [facility] Specimen Anatomical Collection Method Collection Time Receive d Time (Source) Location / / Volume Laterality Blood specimen 03/21/2019 8:51 AM 019 8:57 (specimen) EDT AM EDT Resulting Agency Comment Spec In Lab Alejo Garnett MD CHEMISTRY ORDERABLES Performing Organization Address City/State/ZIP Code Phon e Number [address] Phosphorus (03/21/2019 8:51 AM EDT) athologist Signature Phosphorus 3.4 2.5 - 4.5 [facility] mg/dL [facility] Specimen Anatomical Collection Method Collection Time Receive d Time (Source) Location / / Volume Laterality Blood specimen 03/21/2019 8:51 AM 019 8:57 (specimen) EDT AM EDT Resulting Agency Comment Spec In Lab Alejo Garnett MD CHEMISTRY ORDERABLES Performing Organization Address City/[facility]/ZIP Code Phon e Number [address] Lipid Panel (03/21/2019 8:51 AM EDT) P athologist Signature Chol, Total 96 mg/dL [facility] Comment: Lower Risk: <200 mg/dL Average Risk: 200-239 mg/dL Higher Risk: >eo=740 mg/dL Triglycerides 184 mg/dL [facility] Comment: Average Risk/Lower Risk: <150 mg/dL Borderline High Risk: 150-199 mg/dL High Risk: 200-499 mg/dL Very High Risk: >jm=574 mg/dL HDL 24 mg/dL [facility] Comment: Males: ?? Higher Risk: <40 mg/dL Females: ?? HIgher Risk: <50 mg/dL LDL Cholesterol 35 mg/dL [facility] Comment: Lowest Risk: <100 mg/dL Lower Risk: 100-129 mg/dL Borderline High Risk: 130-159 mg/dL High Risk: 160-189 mg/dL Very High Risk: >ex=587 mg/dL Chol/HDL Ratio 4.0 ratio [facility] Lipid Interpretation See Note [facility] Comment: Lipid management should be guided by a p atient? s ASCVD risk, goals and preferences. ACC/AHA Guidelines recommend high intens ity statin if clinical ASCVD or LDL greater than or equal to 190 mg/dL. http://Genlot.com/LQF-LBE-Bohdbqeve Adults aged 40-75 with LDL 70-189 mg/dL should have their 10 year ASCVD risk estimated with the ACC/AHA ASCVD risk es timator http://tools.acc.org/WDOPT-Qsjj-Wuqjudan r/ Statin should be discussed if risk [...] Organization Address City/State/[place] [address] (ABNORMAL) Comprehensive metabolic panel (non-fasting) (03/21/2019 8:51 AM EDT) athologist Signature Glucose Lvl 176 65 - 199 [facility] mg/dL [facility] Comment: Diabetes: >=200 mg/dL plus symp toms BUN 23 (H) 10 - 20 mg/dL [facility] Creatinine 1.88 (H) 0.80 - 1.50 mg/dL [facility] Sodium 139 135 - 145 mmol/L [facility] Potassium 4.7 3.5 - 5.0 mmol/L [facility] Comment: Please note: ??Patients with WBC >100,00 0 may have falsely elevated Potassium levels. ??For accurate Potassium quantif ication in these patients send serum separator tube (gold top) for subsequent determinations. ??Contact the Clinical Chemistry Laboratory if there are any qu estions. Chloride 105 98 - 107 mmol/L [facility] CO2 25 22 - 31 mmol/L [facility] Anion Gap 9 5 - 15 mmol/L [facility] Calcium 9.4 8.5 - 10.5 mg/dL [facility] Total Protein 7.8 6.1 - 8.0 gm/dL [facility] Albumin 3.4 3.2 - 5.2 gm/dL [facility] AST 35 0 - 39 unit/L [facility] ALT 48 0 - 55 unit/L [facility] Alk Phos 158 (H) 40 - 130 unit/L [facility] Total Bilirubin 0.5 0.2 - 1.3 mg/dL [facility] Estimated GFR 37 (L) >=60 mL/min/1.73 m?? [facility] Comment: The eGFR was calculated using the CKD-EP I equation. As with all creatinine based estimates of kidney function, eGFR values calculated with the CKD-EPI equation are not accurate in patients wi th acute kidney failure, extremes of body mass or the acutely ill. http://[employer]/DHMCnkf eGFR 42 (L) >=60 mL/min/1.73 m?? [facility] Comment: The eGFR was calculated using the CKD-EP I equation. As with all creatinine based estimates of kidney function, eGFR values calculated with the CKD-EPI equation are not accurate in patients wi th acute kidney failure, extremes of body mass or the acutely ill. http://Genlot.SparkLix/DHMCnkf Specimen Anatomical Collection Method Collection Time Receive d Time (Source) Location / / Volume Laterality Blood specimen 03/21/2019 8:51 AM 019 8:57 (specimen) EDT AM EDT Resulting Agency Comment Spec In Lab Alejo Garnett MD CHEMISTRY ORDERABLES Performing Organization Address [facility] Phon e Number [address] (ABNORMAL) Reticulocyte Count (03/21/2019 8:51 AM EDT) Patholo gist Method Time Signature Retic Ct % 2.6 0.7 - 2.6 [facility] Retic Ct Abs 0.090 0.030 - [facility] 0.120 [facility] x10(6)/[facility] L LABORATORY Immature Retic% 23.7 (H) 0.0 - [facility] 15.6 % [facility] Reticulated Hgb 29.3 (L) 31.3 - [facility] 40.2 pg [facility] Specimen Anatomical Collection Method Collection Time Receive d Time (Source) Location / / Volume Laterality Blood specimen 03/21/2019 8:51 AM 019 8:57 (specimen) EDT AM EDT Resulting Agency Comment Spec In Lab Alejo Garnett MD HEMATOLOGY ORDERABLES Performing Organization Address [facility] [place] [address] (ABNORMAL) Hemoglobin A1c (03/21/2019 8:51 AM EDT) Analysis Performed At Patho logist Time Signature Hemoglobin A1C 8.0 (H) 4.3 - 5.6 [facility] [...] Mellitus, Diabetes Care 2013; 36: Suppl. 1, S67-95 Est Avg Gluc 183 mg/dL JERE GARRISON [facility] Comment: eAG equivalents for HbA1c percentages: HbA1c(%) ?eAG(mg/dL) 6.0 ?126 6.5 ?140 7.0 ?154 7.5 ?169 8.0 ?183 8.5 ?197 9.0 ?212 9.5 ?226 10.0 ? 240 Limitations: The eAG calculation has not been validated on women, individuals below 18 years old and above 70 years old, and individuals with hemoglobinopathies. Additional resources are available on [facility] ADA website. Scooby MALDONADO, Nba J, Sydnee R, et al. ??Tr anslating the A1C assay into estimated average glucose values. ??Diabetes Care 2008:31(8):3524-3027. Specimen Anatomical Collection Method Collection Time Receive d Time (Source) Location / / Volume Laterality Blood specimen 03/21/2019 8:51 AM 019 8:57 (specimen) EDT AM EDT Resulting Agency Comment Spec In Lab Alejo Garnett MD CHEMISTRY ORDERABLES Performing Organization Address City/State/[place] [address] documented in this encounter Visit Diagnoses Diagnosis H/O kidney transplant Kidney replaced by transplant documented in this encounter Care Teams Information Technology Advisor Relationship Specialty Start Date End Date Violetta Sanford MD PCP - General 04/02/14 [address] [place] [address] documented as of this encounter
--- OUTSIDE RECORDS SUMMARY | 2022-06-16 12:27 | XMS_ITS | Encounter Summary ---
:1955 Author Organization [facility] [place] [address] Care Team Providers Name Role Phone Violetta Sanford MD Primary Care Provider Encounter Details Date Type Department Care Team Description 03/15/2019 External Results Solid Organ Transplant Devin Garnett, [facility] [place] [address] TRANSPLANT SURGERY [phone] [place], [place] [address] (Wo rk) Social History Tobacco [...] Rojas MD [facility] Dr [address] [place], [place] [phone] (Wo rk) 06/29/2022 Appointment Cardiology Violetta Sanford M D [address] [place] [address] (Wo rk) 06/30/2022 Infusion Hematology and Oncology 07/14/2022 Infusion Hematology and Oncology 07/28/2022 Infusion Hematology and Oncology 08/11/2022 Infusion Hematology and Oncology 08/16/2022 Office Visit Audiology Mindy Moody AUD [facility] AUD[facility] DEPT [place], [place] [address] (Wo rk) 11/04/2022 Office Visit Rheumatology Dante Freedman PA [facility] RHEUMATOLOGY [place], [place] [address] (Wo rk) documented as [...] on filedocumented in this encounter Care Teams Interline Clerk Relationship Specialty Start Date End Date Violetta Sanford MD PCP - General 04/02/14 [address] [place] [address] documented as of this encounter
--- OUTSIDE RECORDS SUMMARY | 2022-06-16 12:27 | XMS_ITS | Encounter Summary ---
:1955 Author Organization [facility] [place] [address] Care Team Providers Name Role Phone Violetta Sanford MD Primary Care Provider Reason for Visit Reason Comments Medication Refill Encounter Details Date Type Department Care Team Description 03/12/2019 Refill Solid Organ Transplant at [facility] lucinda Desir, Transplanted kidney [facility] [place] [address] TRANSPLANT SURGERY [phone] [place], [place] [address] (Oscar escobedo) Social History Tobacco [...] Rojas MD [facility] Dr [place] [phone] (Wo rk) 06/29/2022 Appointment Cardiology Violetta Sanford M D [address] [place] [address] (Oscar rk) 06/30/2022 Infusion Hematology and Oncology 07/14/2022 Infusion Hematology and Oncology 07/28/2022 Infusion Hematology and Oncology 08/11/2022 Infusion Hematology and Oncology 08/16/2022 Office Visit Audiology Mindy Moody AUD [facility] AUDIOLOGY [place], [place] [address] (Wo rk) 11/04/2022 Office Visit Rheumatology Dante Freedman, DA [facility] RHEUMATOLOGY [place], [place] [address] (Wo rk) documented as of this encounter Visit Diagnoses Diagnosis Transplanted kidney Kidney replaced by transplant documented in this encounter Care Teams Axminster Rug Setter Relationship Specialty Start Date End Date Violetta Sanford MD PCP - General 04/02/14 [address] [place] [address] documented as of this encounter
--- OUTSIDE RECORDS SUMMARY | 2022-06-16 12:27 | XMS_ITS | Encounter Summary ---
:1955 Author Organization [facility] [place] [address] Care Team Providers Name Role Phone Violetta Sanford MD Primary Care Provider Reason for Referral Consultation (Routine) - Specialty Diagnoses / Procedures Referred By Contact Refer red To Contact Endocrinology Diagnoses Transplanted kidney CKD (chronic kidney disease) stage 4, GFR 15-29 ml/min Type 2 diabetes mellitus with diabetic nephropathy, with long-term current use of insulin Alejo Garnett Comi, Richard J, MD MD [facility] D ENDOCRINOLOGY [place]PT[place] [address] Referral ID Status Reason Start Date Expiration Visits Visits Date Requested Authorized [id number] Specialty 07/09/2019 07/08/2020 10 10 Service Requested Consultation (Routine) - Specialty Diagnoses / Procedures Referred By Contact Refer red To Contact Cardiology Diagnoses Transplanted kidney Chronic atrial fibrillation CKD (chronic kidney disease) stage 4, GFR 15-29 ml/min Type 2 diabetes mellitus with diabetic nephropathy, with long-term current use of insulin Alejo Garnett MD Costa, Salvatore P, MD [facility] Giovana [facility] TRANSPLANT SURGERY [place] [address] Fax: Referral ID Status Reason Start Date Expiration Date Visits V isits Requested Authorized [id number] Consult, 07/09/2019 07/08/2020 10 10 Test & Treat Encounter Details Date Type Department Care Team Description 06/26/2019 Office Visit Solid Organ Alejo Garnett kidney; Transplant at [facility] MD Thang Aftercare following organ transplant; [facility] Pro phylactic immunotherapy; Drive Chronic atrial fibrillation; [place], [place] TRANSPLANT SURGE RY CKD (chronic kidney disease) stage 4, GF R 15-29 ml/min; [id number] [place] [address] Type 2 diabetes mellitus with diabetic n ephropathy, with long-term current use of insulin [phone] Social History Tobacco Use Types Packs/Day Years [...] AM EST TRANSPLANT NEPHROLOGY FOLLOW-UP??NOTE ?? PATIENT:??Leroy Torres? :??1955 ?? Transplant ID: Date:?? 06/26/2019 Patient:?? Leroy Torres Transplant Date: 02/29/08?? Organ(s) Kidney?? [place] organ diagnosis: Diabetes Mellitus - Type II?? [...] that when he was admitted to [facility] in October 2018 they had found him in and out of A fib. Despite that he had no evaluation or followup for the Afib. Reuben denies anasarca, progressive ascites, edema beyond usual from his amputations and obesity. Excessive salt intake new meds or allergies. He was hospitalized last Fall 2017 for hyperkalemia, but his biggest stress is his ex rkubcixu-zr-wne who he and his believe set his [...] year colonoscopy after age 48??- Normal in 2017 in [facility]?? Monthly self skin exam, daily spf [...] Last test??done 03/21/2015??which was normal. Due again!! [place] kidney ultrasound looking for renal cell CA, [...] BELOW-KNEE performed by HENNA GAMINO JR at [facility] MAIN OR ??? PRO LAP, APPENDECTOMY ?? 06/16/2013 ?? LAPAROSCOPIC APPENDECTOMY performed by Angel Mccann MD at [facility] MA[facility] OR ? Current Outpatient Medications: ??? [...] gauge x 1/2 Needle, 1 Device by [facility].(Non- Drug; Combo Route) route 3 times daily., [...] , Rfl: 1 ??? Miscellaneous Medical Supply [facility], 4 Devices by Misc.(Non-Drug; Combo Route) route daily. Rubbersheath for leg [...] from 06/26/2019 in Solid Organ Transplant at [facility] Weight (!) 137 kg (302 lb) Height [...] Normal speech. Left hand resting tremor.?Results for ASIM LEROY O ( ) as of 07/09/2019 20:42 Ref. [...] of??30 min in direct face to face treatment counselor. ?? documented in this encounter Plan of Treatment Upcoming Encounters Date Type Specialty Care Team Description 06/16/2022 Infusion Hematology and Oncology 06/21/2022 Office Visit Neurology Tyler Rojas MD [facility] Neurology [place] [phone] (Wo rk) 06/29/2022 Appointment Cardiology Violetta Sanford M D [facility] [address] [place] [address] (Wo rk) 06/30/2022 Infusion Hematology and Oncology 07/14/2022 Infusion Hematology and Oncology 07/28/2022 Infusion Hematology and Oncology 08/11/2022 Infusion Hematology and Oncology 08/16/2022 Office Visit Audiology Mindy Modoy AUD [facility] AUDIOLOGY DEPT [place], [place] [address] (Wo rk) 11/04/2022 Office Visit Rheumatology Dante Freedman PA [facility] ER RHEUMATOLOGY [place], [place] [address] (Wo gregg) Scheduled Referrals Name Type Priority Associated Diagnoses Order S chedule Referral to Cardiology Outpatient Routine Transplan milli kidney Ordered: Referral Chronic atrial 07/09/2019 fibrillation CKD (chronic kidney disease) stage 4, GFR 15-29 ml/min Type 2 diabetes mellitus with diabetic nephropathy, with long-term current use of insulin Referral to Outpatient Routine Transplanted deepa mathew Ordered: Endocrinology Referral CKD (chronic kidney 019 disease) stage 4, GFR 15-29 ml/min Type 2 diabetes mellitus with diabetic nephropathy, with long-term current use of insulin documented as of this encounter Results Tacrolimus level (06/26/2019 8:02 AM EST) athologist Signature Tacrolimus Lvl 5.4 ng/mL [facility] Comment: Trough therapeutic: ??5-15 ng/mL Performed by ultra-performance liquid ch romatography tandem mass spectrometry (UPLCMS/MS). This test was developed and its performa nce characteristics determined by [facility]. It has not been cleared [...] Garnett MD CHEMISTRY ORDERABLES Performing Organization Address City/[facility]/ZIP Code Phon e Number [address] Lavender Tube HOLD (06/26/2019 8:02 AM EST) [facility] gist Method Time Signature Lavender Hold Sample in [facility]. [facility] Specimen Anatomical Collection Method Collection Time Receive d Time (Source) Location / / Volume Laterality Blood specimen 06/26/2019 8:02 AM 019 8:11 (specimen) EST AM EST Alejo Garnett MD HEMATOLOGY ORDERABLES Performing Organization Address City/[facility]/ZIP Code Phon e Number [address] Gold Tube HOLD (06/26/2019 8:02 AM EST) athologist Signature Gold Hold Sample in [facility] lab. [facility] Specimen Anatomical Collection Method Collection Time Receive d Time (Source) Location / / Volume Laterality Blood specimen 06/26/2019 8:02 AM 019 8:11 (specimen) EST AM EST Alejo Garnett MD CHEMISTRY ORDERABLES Performing Organization Address City/[facility]/ZIP Code Phon e Number [address] (ABNORMAL) 1,25-dihydroxycholecalciferol (06/26/2019 8:02 AM EST) athologist Signature Vit D 1,25 17 (L) 18 - 64 JERE MELI pg/mL [facility] Comment: ADDITIONAL INFORMATIO N This test was developed and its performa nce characteristics determined by [facility] in a manner co nsistent with CLIA requirements. This test has not been carlos ared or approved by the U.S. Food and Drug Administration. Test Performed by: [facility] [address] [place] [address] Wire Drawing Machine Tender: Van White M.D. Ph. D.; CLIA# [id number] Specimen Anatomical Collection Method Collection Time Receive d Time (Source) Location / / Volume Laterality Blood specimen 06/26/2019 8:02 AM 019 (specimen) EST 11:15 AM EST Resulting Agency Comment Spec In Lab Alejo Garnett MD CHEMISTRY ORDERABLES Performing Organization Address City/[facility]/ZIP Code Phon e Number [address] Vitamin D, 25-Hydroxy (06/26/2019 8:02 AM EST) athologist Signature 25-OH Vit D 34 30 - 100 JERE MELI Total ng/mL [facility] Comment: As of 2019, 25-hydroxyvitamin D elizabeth ting has moved from the [employer] to the [employer] [place]. No substantial change in me asured values is expected. Specimen Anatomical Collection Method Collection Time Receive d Time (Source) Location / / Volume Laterality Blood specimen 06/26/2019 8:02 AM 019 8:11 (specimen) EST AM EST Resulting Agency Comment Spec In Lab Alejo Garnett MD CHEMISTRY ORDERABLES Performing Organization Address City/[facility]/ZIP Code Phon e Number [address] (ABNORMAL) PTH (06/26/2019 8:02 AM EST) P athologist Signature PTH 140 (H) 15 - 65 JERE CUEVASMELI pg/mL [facility] Specimen Anatomical Collection Method Collection Time Receive d Time (Source) Location / / Volume Laterality Blood specimen 06/26/2019 8:02 AM 019 8:11 (specimen) EST AM EST Resulting Agency Comment Spec In Lab Alejo Garnett MD CHEMISTRY ORDERABLES Performing Organization Address City/[facility]/[place] [address] Uric acid (06/26/2019 8:02 AM EST) P athologist Signature Uric Acid 8.2 3.5 - 8.5 JERE MUROCOCK mg/dL [facility] Specimen Anatomical Collection Method Collection Time Receive d Time (Source) Location / / Volume Laterality Blood specimen 06/26/2019 8:02 AM 019 8:11 (specimen) EST AM EST Resulting Agency Comment Spec In Lab Alejo Garnett MD CHEMISTRY ORDERABLES Performing Organization Address City/[facility]/[place] [address] (ABNORMAL) Magnesium (06/26/2019 8:02 AM EST) P athologist Signature Magnesium 0.68 (L) 0.69 - 1.07 [facility] MELI mmol/L [facility] Specimen Anatomical Collection Method Collection Time Receive d Time (Source) Location / / Volume Laterality Blood specimen 06/26/2019 8:02 AM 019 8:11 (specimen) EST AM EST Resulting Agency Comment Spec In Lab Alejo Garnett MD CHEMISTRY ORDERABLES Performing Organization Address City/State/ZIP Code Phon e Number [address] Phosphorus (06/26/2019 8:02 AM EST) athologist Signature Phosphorus 3.5 2.5 - 4.5 [facility] mg/dL [facility] Specimen Anatomical Collection Method Collection Time Receive d Time (Source) Location / / Volume Laterality Blood specimen 06/26/2019 8:02 AM 019 8:11 (specimen) EST AM EST Resulting Agency Comment Spec In Lab Alejo Garnett MD CHEMISTRY ORDERABLES Performing Organization Address City/State/ZIP Code Phon e Number [address] Lipid Panel (Reflex Direct LDL) (06/26/2019 8:02 AM EST) athologist Signature Chol, Total 88 mg/dL [facility] Comment: Lower Risk: <200 mg/dL Average Risk: 200-239 mg/dL Higher Risk: >ea=998 mg/dL Triglycerides 222 mg/dL [facility] Comment: Average Risk/Lower Risk: <150 mg/dL Borderline High Risk: 150-199 mg/dL High Risk: 200-499 mg/dL Very High Risk: >aw=123 mg/dL HDL 23 mg/dL [facility] Comment: Males: ?? Higher Risk: <40 mg/dL Females: ?? HIgher Risk: <50 mg/dL LDL Cholesterol 21 mg/dL [facility] Comment: Lowest Risk: <100 mg/dL Lower Risk: 100-129 mg/dL Borderline High Risk: 130-159 mg/dL High Risk: 160-189 mg/dL Very High Risk: >bh=912 mg/dL Chol/HDL Ratio 3.8 ratio [facility] Lipid Interpretation See Note [facility] Comment: Lipid management should be guided by a p atient? s ASCVD risk, goals and preferences. ACC/AHA Guidelines recommend high intens ity statin if clinical ASCVD or LDL greater than or equal to 190 mg/dL. http://tinyurl.com/ZZX-GPA-Froxkkidm Adults aged 40-75 with LDL 70-189 mg/dL should have their 10 year ASCVD risk estimated with the ACC/AHA ASCVD risk es timator http://tools.acc.org/HDFOA-Racn-Xoayzeaq r/ Statin should be discussed if risk [...] Organization Address City/State/[place] [address] (ABNORMAL) Comprehensive metabolic panel (non-fasting) (06/26/2019 8:02 AM EST) P athologist Signature Glucose Lvl 87 65 - 199 [facility] mg/dL [facility] Comment: Diabetes: >=200 mg/dL plus symp toms BUN 26 (H) 10 - 20 mg/dL [facility] Creatinine 1.98 (H) 0.80 - 1.50 mg/dL [facility] Sodium 142 135 - 145 mmol/L [facility] Potassium 4.7 3.5 - 5.0 mmol/L [facility] Comment: Please note: ??Patients with WBC >100,00 0 may have falsely elevated Potassium levels. ??For accurate Potassium quantif ication in these patients send serum separator tube (gold top) for subsequent determinations. ??Contact the Clinical Chemistry Laboratory if there are any qu estions. Chloride 109 (H) 98 - 107 mmol/L [facility] CO2 20 (L) 22 - 31 mmol/L [facility] Anion Gap 13 5 - 15 mmol/L [facility] Calcium 9.3 8.5 - 10.5 mg/dL [facility] Total Protein 7.8 6.1 - 8.0 gm/dL [facility] Albumin 3.4 3.2 - 5.2 gm/dL [facility] AST 18 0 - 39 unit/L [facility] ALT 15 0 - 55 unit/L [facility] Alk Phos 147 (H) 40 - 130 unit/L [facility] Total Bilirubin 0.4 0.2 - 1.3 mg/dL [facility] Estimated GFR 34 (L) >=60 mL/min/1.73 m?? [facility] Comment: The eGFR was calculated using the CKD-EP I equation. As with all creatinine based estimates of kidney function, eGFR values calculated with the CKD-EPI equation are not accurate in patients wi th acute kidney failure, extremes of body mass or the acutely ill. http://[employer]/[facility] COALGATEnkf eGFR 40 (L) >=60 mL/min/1.73 m?? [facility] Comment: The eGFR was calculated using the CKD-EP I equation. As with all creatinine based estimates of kidney function, eGFR values calculated with the CKD-EPI equation are not accurate in patients wi th acute kidney failure, extremes of body mass or the acutely ill. http://[employer]/[facility]GATEnkf Specimen Anatomical Collection Method Collection Time Receive d Time (Source) Location / / Volume Laterality Blood specimen 06/26/2019 8:02 AM 019 8:11 (specimen) EST AM EST Resulting Agency Comment Spec In Lab Alejo Garnett MD CHEMISTRY ORDERABLES Performing Organization Address City/State/[place] [address] (ABNORMAL) Reticulocyte Count (06/26/2019 8:02 AM EST) Patholo gist Method Time Signature Retic Ct % 2.6 0.7 - 2.6 [facility] LABORATORY Retic Ct Abs 0.100 0.030 - [facility] MELI 0.120 [facility] x10(6)/[facility] L LABORATORY Immature Retic% 20.4 (H) 0.0 - [facility] 15.6 % [facility] Reticulated Hgb 30.5 (L) 31.3 - [facility] 40.2 pg [facility] Specimen Anatomical Collection Method Collection Time Receive d Time (Source) Location / / Volume Laterality Blood specimen 06/26/2019 8:02 AM 019 8:11 (specimen) EST AM EST Resulting Agency Comment Spec In Lab Alejo Garnett MD HEMATOLOGY ORDERABLES Performing Organization Address City/State/ZIP Code Phon e Number [place] [id number] (ABNORMAL) Hemoglobin A1c (06/26/2019 8:02 AM EST) Analysis Performed At Patho logist Time Signature Hemoglobin A1C 9.0 (H) 4.3 - 5.6 [facility] Mellitus, Diabetes Care 2013; 36: Suppl. 1, S28-41 Est Avg Gluc 212 mg/dL [facility] Comment: eAG equivalents for [...] into estimated average glucose values. ??Diabetes Care 2008:31(8):8323-7151. Specimen Anatomical Collection Method Collection Time Receive d Time (Source) Location / / Volume Laterality Blood specimen 06/26/2019 8:02 AM 019 8:11 (specimen) EST AM EST Resulting Agency Comment Spec In Lab Alejo Garnett MD CHEMISTRY ORDERABLES Performing Organization Address City/State/[place] [address] documented in this encounter [...] insulin documented in this encounter Care Teams Casing Puller Relationship Specialty Start Date End Date Violetta Sanford MD PCP - General 04/02/14 [address] [place] [address] documented as of this encounter
--- OUTSIDE RECORDS SUMMARY | 2022-06-16 12:27 | XMS_ITS | Encounter Summary ---
:1955 Author Organization [facility] [place] [address] Care Team Providers Name Role Phone Violetta Sanford MD Primary Care Provider Encounter Details Date Type Department Care Team Description 07/13/2019 Telephone [facility]rology at [facility] Shivam Rojas MD [facility] [place] [address] Neurology [phone] [place], [place] [phone] (Wo rk) Social History [...] most recent lab results received from [facility] to for review and input as is [...] to less than 130/80 and keep his xpfW3Nc in the 6-7% range. documented in this encounter Plan of Treatment Upcoming Encounters Date Type Specialty Care Team Description 06/16/2022 Infusion Hematology and Oncology 06/21/2022 Office Visit Neurology Tyler Rojas MD [facility] Neurology [place], [place] [phone] (Wo rk) 06/29/2022 Appointment Cardiology Violetta Sanford M D [address] [place], [place] [id number] (Wo rk) 06/30/2022 Infusion Hematology and Oncology 07/14/2022 Infusion Hematology and Oncology 07/28/2022 Infusion Hematology and Oncology 08/11/2022 Infusion Hematology and Oncology 08/16/2022 Office Visit Audiology Mindy Moody AUD [facility] AUDIOLOGY [place], [place] [address] (Wo rk) 11/04/2022 Office Visit Rheumatology Dante Freedman PA [facility] RHEUMATOLOGY [place], [place] [address] (Wo rk) documented as of this encounter Visit Diagnoses Not on filedocumented in this encounter Care Teams Fuel House Attendant Relationship Specialty Start Date End Date Violetta Sanford MD PCP - General 04/02/14 [address] [place], [place] [id number] documented as of this encounter
--- OUTSIDE RECORDS SUMMARY | 2022-06-16 12:27 | XMS_ITS | Encounter Summary ---
:1955 Author Organization [facility] [address] Care Team Providers Name Role Phone Violetta Sanford MD Primary Care Provider Encounter Details Date Type Department Care Team Description 07/06/2019 External Results Neurology at [facility] Shivam Rojas [facility] [place] [address] Neurology [phone] [place], [place] [address] (Wo rk) Social History Tobacco [...] Tyler Rojas MD [facility] Dr [address] [place], [place] [phone] (Wo rk) 06/29/2022 Appointment Cardiology Violetta Sanford M D [address] [place] [address] (Wo rk) 06/30/2022 Infusion Hematology and Oncology 07/14/2022 Infusion Hematology and Oncology 07/28/2022 Infusion Hematology and Oncology 08/11/2022 Infusion Hematology and Oncology 08/16/2022 Office Visit Audiology Mindy Moody AUD [facility] AUDIOLOGY [place], [place] [address] (Wo rk) 11/04/2022 Office Visit Rheumatology Dante Freedman PA [facility] RHEUMATOLOGY [place], [place] [address] (Wo rk) documented as [...] on filedocumented in this encounter Care Teams Registered Representative Relationship Specialty Start Date End Date Violetta Sanford MD PCP - General 04/02/14 [address] [place] [address] documented as of this encounter
--- OUTSIDE RECORDS SUMMARY | 2022-06-16 12:27 | XMS_ITS | Encounter Summary ---
:1955 Author Organization [facility] [place] [address] Care Team Providers Name Role Phone Violetta Sanford MD Primary Care Provider Encounter Details Date Type Department Care Team Description 05/16/2018 Refill Solid Organ Transplant Lynda Pyle, [place] [address] Social History Tobacco Use Types Packs/Day Years [...] Contact: Leroy called about [facility] in [place] not carrying name brand Prograf, only generic. He wanted this switched to [facility] so that he can get it mailed to him just like the [employer]. Looks like the 1 mg Prograf was sent to [facility] today. He needs 2 new prescriptions sent to [facility]: Prograf 1 mg Prograf .05 mg Please call him if this can't be done through [facility]. documented in this encounter Plan of Treatment Upcoming Encounters Date Type Specialty Care Team Description 06/16/2022 Infusion Hematology and Oncology 06/21/2022 Office Visit Neurology Tyler Rojas MD [facility] Neurology [place], [place] [phone] (Wo rk) 06/29/2022 Appointment Cardiology Violetta Sanford M D [address] [place], [place] [id number] (Wo rk) 06/30/2022 Infusion Hematology and Oncology 07/14/2022 Infusion Hematology and Oncology 07/28/2022 Infusion Hematology and Oncology 08/11/2022 Infusion Hematology and Oncology 08/16/2022 Office Visit Audiology Mindy Moody AUD [facility] AUDIOLOGY [place], [place] [address] (Wo rk) 11/04/2022 Office Visit Rheumatology Dante Freedman PA [facility] RHEUMATOLOGY [place], [place] [address] (Wo rk) documented as of this encounter Visit Diagnoses Diagnosis Transplanted kidney Kidney replaced by transplant documented in this encounter Care Teams Line Clearance Foreman Relationship Specialty Start Date End Date Violetta Sanford MD PCP - General 04/02/14 [address] [place], [place] [address] documented as of this encounter
--- OUTSIDE RECORDS SUMMARY | 2022-06-16 12:27 | XMS_ITS | Encounter Summary ---
:1955 Author Organization [facility] [place] [address] Care Team Providers Name Role Phone Violetta Sanford MD Primary Care Provider Encounter Details Date Type Department Care Team Description 03/21/2019 Office Visit Solid Organ Transplant at [facility] post kidney [facility] [place] [address] Social History Tobacco Use Types Packs/Day [...] rent before that. He said that his senrameb-yo-fet is now living there and not paying [...] an eviction form. They met with a fulling mill operator for several weeks before they were told that they do not do evictions. Worker asked if he was savory with the Internet and he said no, but later talked about facebook and the Internet. He said that he makes $100.00 too much to qualify for assistance and states they do not have the money for an eviction. Worker suggested that he contact legal support assistant and ask if they could give him advice on the least costly way for him to go about evicting his ihghafzx-id-gtq from their place. Worker provided support as he voiced his frustrations. documented in this encounter Plan of Treatment Upcoming Encounters Date Type Specialty Care Team Description 06/16/2022 Infusion Hematology and Oncology 06/21/2022 Office Visit Neurology Tyler Rojas MD [facility] Neurology [place], [place] [phone] (Oscar escobedo) 06/29/2022 Appointment Cardiology Violetta Sanford M D [address] [place] [address] (Oscar escobedo) 06/30/2022 Infusion Hematology and Oncology 07/14/2022 Infusion Hematology and Oncology 07/28/2022 Infusion Hematology and Oncology 08/11/2022 Infusion Hematology and Oncology 08/16/2022 Office Visit Audiology Mindy Moody AUD [facility] AUDIOLOGY DEPT [place], [place] [address] (Wo rk) 11/04/2022 Office Visit Rheumatology Dante Freedman PA [facility] RHEUMATOLOGY [place], [place] [address] (Wo rk) documented as of this encounter Visit Diagnoses Diagnosis Status post kidney transplant Kidney replaced by transplant documented in this encounter Care Teams Onshore Diver Relationship Specialty Start Date End Date Violetta Sanford MD PCP - General 04/02/14 [address] [place] [address] documented as of this encounter
--- OUTSIDE RECORDS SUMMARY | 2022-06-16 12:27 | XMS_ITS | Encounter Summary ---
:1955 Author Organization [facility] [place] [address] Care Team Providers Name Role Phone Violetta Sanford MD Primary Care Provider Encounter Details Date Type Department Care Team Description 08/11/2018 Abstract Solid Organ Transpla nt at [facility] [place] [address] Social History Tobacco Use Types Packs/Day Years [...] Rojas MD [facility] Neurology [place], [place] [phone] (Wo rk) 06/29/2022 Appointment Cardiology Violetta Sanford M D [facility] [address] [place], [place] [address] (Wo rk) 06/30/2022 Infusion Hematology and Oncology 07/14/2022 Infusion Hematology and Oncology 07/28/2022 Infusion Hematology and Oncology 08/11/2022 Infusion Hematology and Oncology 08/16/2022 Office Visit Audiology Mindy Moody AUD ONE [facility] AUDIOLOGY DEPT [place], [place] [address] (Wo rk) 11/04/2022 Office Visit Rheumatology Dante Freedman, PA [facility] RHEUMATOLOGY [place], [place] [address] (Wo rk) documented as of this encounter Visit Diagnoses Not on filedocumented in this encounter Care Teams Bacteriology Professor Relationship Specialty Start Date End Date Violetta Sanford MD PCP - General 04/02/14 [address] [place] [address] documented as of this encounter
--- OUTSIDE RECORDS SUMMARY | 2022-06-16 12:27 | XMS_ITS | Encounter Summary ---
:1955 Author Organization [facility] Address [facility] [place] [address] Care Team Providers Name Role Phone Violetta Sanford MD Primary Care Provider Encounter Details Date Type Department Care Team Description 06/21/2018 Laboratory Appointment Lab 3L [facility] Type 2 diabetes [facility] mellitus with [facility] complcharyt evangelina, with Drive long-term current use [place], [place] of insulin [phone] Social History Tobacco Use Types Packs/Day Years [...] Neurology Tyler Rojas MD [facility] Neurology [place], [place] [phone] (Wo rk) 06/29/2022 Appointment Cardiology Violetta Sanford M D [address] [place], [place] [id number] (Oscar escobedo) 06/30/2022 Infusion Hematology and Oncology 07/14/2022 Infusion Hematology and Oncology 07/28/2022 Infusion Hematology and Oncology 08/11/2022 Infusion Hematology and Oncology 08/16/2022 Office Visit Audiology Mindy Moody AUD ONE [facility] AUDIOLOGY DEPT [place], [place] [address] (Wo rk) 11/04/2022 Office Visit Rheumatology Dante Freedman PA [facility] RHEUMATOLOGY [place], [place] [address] (Wo rk) documented as of [...] (06/21/2018 9:27 AM EST) [facility] Time Signature Hemoglobin A1C 8.2 (H) 4.3 - 5.6 [facility] [...] Mellitus, Diabetes Care 2013; 36: Suppl. 1, S67-68 Est Avg Gluc 189 mg/dL [facility] [...] with hemoglobinopathies. Additional resources are available on [facility] ADA website. Scooby MALDONADO, Nba J, Sydnee R, et al. ??Tr anslating the A1C assay into estimated average glucose values. ??Diabetes Care 2008:31(8):5859-0499. Specimen Anatomical Collection Method Collection Time Receive d Time (Source) Location / / Volume Laterality Blood specimen 06/21/2018 9:27 AM 018 9:37 (specimen) EST AM EST Resulting Agency Comment Spec In Lab Donell Hernandez MD CHEMISTRY ORDERABLES Performing Organization Address City/State/[place] [address] (ABNORMAL) Creatinine (06/21/2018 9:27 AM EST) Analysis Performed At [facility] Time Signature Creatinine 1.82 (H) 0.80 - JERE MELI 1.50 mg/dL [facility] Estimated GFR 38 (L) >=60 [facility] mL/min/1.7 [facility] 3 m?? HOSPITAL [facility]ORY Comment: The eGFR was calculated using the CKD-EP I equation. As with all creatinine based estimates of kidney function, eGFR values calculated with the CKD-EPI equation are not accurate in patients wi th acute kidney failure, extremes of body mass or the acutely ill. http://Xtime/DHMCnkf eGFR 44 (L) >=60 mL/min/1.73 m?? [facility] Comment: The eGFR was calculated using the CKD-EP I equation. As with all creatinine based estimates of kidney function, eGFR values calculated with the CKD-EPI equation are not accurate in patients wi th acute kidney failure, extremes of body mass or the acutely ill. [email or web address]/DHMCnkf Specimen Anatomical Collection Method Collection Time Receive d Time (Source) Location / / Volume Laterality Blood specimen 06/21/2018 9:27 AM 018 9:37 (specimen) EST AM EST Resulting Agency Comment Spec In Lab Donell Hernandez MD CHEMISTRY ORDERABLES Performing Organization Address City/State/[facility] [place] [address] documented in this encounter Visit Diagnoses Diagnosis Type 2 diabetes mellitus with complicati on, with long-term current use of insulin documented in this encounter Care Teams Trigonometry Tutor Relationship Specialty Start Date End Date Violetta Sanford MD PCP - General 04/02/14 [address] [place] [address] documented as of this encounter
--- OUTSIDE RECORDS SUMMARY | 2022-06-16 12:27 | XMS_ITS | Encounter Summary ---
:1955 Author Organization [facility] [place] [address] Care Team Providers Name Role Phone Violetta Sanford MD Primary Care Provider Encounter Details Date Type Department Care Team Description 01/09/2019 Notes Only Pharmacy at [facility] [place] [address] Social History Tobacco Use Types Packs/Day [...] 01/09/2019 5:14 PM EDT COULD NOT LEAVE FOR PATIENT IN REGARDS TO PROGRAF CHANGE. PT'S PHONE NUMBER ON FILE IS INVALID. documented in this encounter Plan of Treatment Upcoming Encounters Date Type Specialty Care Team Description 06/16/2022 Infusion Hematology and Oncology 06/21/2022 Office Visit Neurology Tyler Rojas MD [facility] [address] [place], [place] [phone] (Wo rk) 06/29/2022 Appointment Cardiology Violetta Sanford M D [address] [place] [address] (Wo rk) 06/30/2022 Infusion Hematology and Oncology 07/14/2022 Infusion Hematology and Oncology 07/28/2022 Infusion Hematology and Oncology 08/11/2022 Infusion Hematology and Oncology 08/16/2022 Office Visit Audiology Mindy Moody, WENDI [facility] [place]OLOGY [place], [place] [address] (Wo rk) 11/04/2022 Office Visit Rheumatology Dante Freedman, PA [facility] RHEUMATOLOGY [place], [place] [address] (Wo rk) documented as of this encounter Visit Diagnoses Not on filedocumented in this encounter Care Teams Fiber Artist Relationship Specialty Start Date End Date Violetta Sanford MD PCP - General 04/02/14 [facility] [address] [place] [address] documented as of this encounter
--- OUTSIDE RECORDS SUMMARY | 2022-06-16 12:27 | XMS_ITS | Encounter Summary ---
:1955 Author Organization [facility] [address] Care Team Providers Name Role Phone Violetta Sanford MD Primary Care Provider Encounter Details Date Type Department Care Team Description 03/13/2019 Orders Only [facility] [address] Social History Tobacco Use Types Packs/Day [...] Rojas MD [facility] Neurology [place], [place] [phone] (Wo rk) 06/29/2022 Appointment Cardiology Violetta Sanford M D [address] [place], [place] [id number] (Oscar rk) 06/30/2022 Infusion Hematology and Oncology 07/14/2022 Infusion Hematology and Oncology 07/28/2022 Infusion Hematology and Oncology 08/11/2022 Infusion Hematology and Oncology 08/16/2022 Office Visit Audiology Mindy Moody, WENDI [facility] AUDIOLOGY DEPT [place], [place] [address] (Wo rk) 11/04/2022 Office Visit Rheumatology Dante Freedman, PA [facility] RHEUMATOLOGY [place], [place] [address] (Wo rk) documented as of this encounter Visit Diagnoses Not on filedocumented in this encounter Care Teams Automatic Head Sawyer Relationship Specialty Start Date End Date Violetta Sanford MD PCP - General 04/02/14 [address] [place] [address] documented as of this encounter
--- OUTSIDE RECORDS SUMMARY | 2022-06-16 12:27 | XMS_ITS | Encounter Summary ---
:1955 Author Organization [facility] [place] [address] Care Team Providers Name Role Phone Violetta Sanford MD Primary Care Provider Reason for Visit Reason Onset Date Comments Medication Refill 03/15/2019 Encounter Details Date Type Department Care Team Description 03/15/2019 Refill Solid Organ Transpla [place] at [facility] [place] [address] Social History Tobacco Use Types Packs/Day [...] Rojas MD [facility] Neurology [place], [place] [address] (Wo rk) 06/29/2022 Appointment Cardiology Violetta Sanford M D [address] [place] [address] (Wo rk) 06/30/2022 Infusion Hematology and Oncology 07/14/2022 Infusion Hematology and Oncology 07/28/2022 Infusion Hematology and Oncology 08/11/2022 Infusion Hematology and Oncology 08/16/2022 Office Visit Audiology Mindy Moody AUD ONE [facility] AUDIOLOGY DEPT [place], [place] [address] (Wo rk) 11/04/2022 Office Visit Rheumatology Dante Freedman PA [facility] RHEUMATOLOGY [place], [place] [address] (Wo rk) documented as of this encounter Visit Diagnoses Not on filedocumented in this encounter Care Teams Nutrition Assistant Relationship Specialty Start Date End Date Violetta Sanford MD PCP - General 04/02/14 [address] [place] [address] documented as of this encounter
--- OUTSIDE RECORDS SUMMARY | 2022-06-16 12:27 | XMS_ITS | Encounter Summary ---
:1955 Author Organization [facility] [place] [address] Care Team Providers Name Role Phone Violetta Sanford MD Primary Care Provider Encounter Details Date Type Department Care Team Description 07/03/2019 Telephone Neurology at [facility] Shivam Rojas MD [place] [address] Neurology [phone] [place], [place] [phone] (Wo rk) Social History [...] RN - 07/03/2019 3:31 PM EST Called [facility] and obtained the results of the Prograf levels drawn on 07/02/19. The result is 6.3 nanograms per ml. Results emailed to and for review. documented in this encounter Plan of Treatment Upcoming Encounters Date Type Specialty Care Team Description 06/16/2022 Infusion Hematology and Oncology 06/21/2022 Office Visit Neurology Tyler Rojas MD [facility] Neurology [place], [place] [phone] (Wo rk) 06/29/2022 Appointment Cardiology Violetta Sanford M D [address] [place], [place] [address] (Wo rk) 06/30/2022 Infusion Hematology and Oncology 07/14/2022 Infusion Hematology and Oncology 07/28/2022 Infusion Hematology and Oncology 08/11/2022 Infusion Hematology and Oncology 08/16/2022 Office Visit Audiology Mindy Moody AUD [facility] AUDIOLOGY [place], [place] [address] (Wo rk) 11/04/2022 Office Visit Rheumatology Dante Freedman PA [facility] RHEUMATOLOGY [place], [place] [address] (Wo rk) documented as of this encounter Visit Diagnoses Not on filedocumented in this encounter Care Teams Cloud Architect Relationship Specialty Start Date End Date Violetta Sanford MD PCP - General 04/02/14 [address] [place], [place] [address] documented as of this encounter
--- OUTSIDE RECORDS SUMMARY | 2022-06-16 12:27 | XMS_ITS | Encounter Summary ---
:1955 Author Organization [facility] [place] [address] Care Team Providers Name Role Phone Violetta Sanford MD Primary Care Provider Reason for Visit Reason Comments Medication Refill Encounter Details Date Type Department Care Team Description 06/11/2019 Refill Solid Organ Transplant at [facility] lucinda Desir, Transplanted kidney [facility] [place] [address] TRANSPLANT SURGERY [phone] [place], [place] [address] (Oscar escobedo) Social History Tobacco [...] Rojas MD [facility] Dr [place]i [place], [place] [address] (Wo rk) 06/29/2022 Appointment Cardiology Violetta Sanford M D [address] [place] [address] (Oscar rk) 06/30/2022 Infusion Hematology and Oncology 07/14/2022 Infusion Hematology and Oncology 07/28/2022 Infusion Hematology and Oncology 08/11/2022 Infusion Hematology and Oncology 08/16/2022 Office Visit Audiology Mindy Moody AUD [facility] AUDIOLOGY [place], [place] [address] (Wo rk) 11/04/2022 Office Visit Rheumatology Dante Freedman, DA [facility] RHEUMATOLOGY [place], [place] [address] (Wo rk) documented as of this encounter Visit Diagnoses Diagnosis Transplanted kidney Kidney replaced by transplant documented in this encounter Care Teams Supervisor Wound Relationship Specialty Start Date End Date Violetta Sanford MD PCP - General 04/02/14 [address] [place] [address] documented as of this encounter
--- OUTSIDE RECORDS SUMMARY | 2022-06-16 12:28 | XMS_ITS | Encounter Summary ---
:1955 Author Organization [facility] [place] [address] Care Team Providers Name Role Phone Violetta Sanford MD Primary Care Provider Encounter Details Date Type Department Care Team Description 04/20/2018 Office Visit Neurology [place] [facility] Shivam Rojas Tremor, [facility] [place] [address] Neurology [phone] [place] [address] (Wo rk) Social History Tobacco Use Types [...] and therapeutic planning. Shivam Rojas MD 04/20/2018 [place] [facility] Neurology and Clinical Neurophysiology [facility] Department of Neurology documented in this encounter Plan of Treatment Upcoming Encounters Date Type Specialty Care Team Description 06/16/2022 Infusion Hematology and Oncology 06/21/2022 Office Visit Neurology Tyler Rojas MD [facility] Dr [address] [place], [place] [address] (Oscar escobedo) 06/29/2022 Appointment Cardiology Violetta Sanford M D [address] [place] [address] (Oscar escobedo) 06/30/2022 Infusion Hematology and Oncology 07/14/2022 Infusion Hematology and Oncology 07/28/2022 Infusion Hematology and Oncology 08/11/2022 Infusion Hematology and Oncology 08/16/2022 Office Visit Audiology Mindy Moody AUD ONE [facility] AUDIOLOGY DEPT [place], [place] [address] (Wo rk) 11/04/2022 Office Visit Rheumatology Dante rFeedman PA [facility] RHEUMATOLOGY [place], [place] [address] (Wo rk) documented as of this encounter Visit Diagnoses Diagnosis Tremor, essential Essential and other specified forms of t remor documented in this encounter Care Teams Team Driver Relationship Specialty Start Date End Date Violetta Sanford MD PCP - General 04/02/14 [address] [place] [address] documented as of this encounter
--- OUTSIDE RECORDS SUMMARY | 2022-06-16 12:28 | XMS_ITS | Encounter Summary ---
:1955 Author Organization [facility] [place] [address] Care Team Providers Name Role Phone Violetta Sanford MD Primary Care Provider Encounter Details Date Type Department Care Team Description 05/16/2018 Telephone Solid Organ Transpla nt at [facility] [place] [address] Social History Tobacco Use Types Packs/Day [...] 05/10/2018 Prograf Level: 8.9 Previous Prograf Dose: 1/1 New Prograf Dose: 1/0.5 Spoke with Leroy [...] Tyler Rojas MD [facility] Neurology [place], [place] [address] (Wo rk) 06/29/2022 Appointment Cardiology Violetta Sanford M D [address] [place], [place] [address] (Wo rk) 06/30/2022 Infusion Hematology and Oncology 07/14/2022 Infusion Hematology and Oncology 07/28/2022 Infusion Hematology and Oncology 08/11/2022 Infusion Hematology and Oncology 08/16/2022 Office Visit Audiology Mindy Moody AUD [facility] AUDIOLOGY [place], [place] [address] (Wo rk) 11/04/2022 Office Visit Rheumatology Dante Freedman PA [facility] RHEUMATOLOGY [place], [place] [address] (Wo rk) documented as of this encounter Visit Diagnoses Not on filedocumented in this encounter Care Teams Senior It Specialist Relationship Specialty Start Date End Date Violetta Sanford MD PCP - General 04/02/14 [address] [place], [place] [address] documented as of this encounter
--- OUTSIDE RECORDS SUMMARY | 2022-06-16 12:28 | XMS_ITS | Encounter Summary ---
:1955 Author Organization [facility] [place] [address] Care Team Providers Name Role Phone Violetta Sanford MD Primary Care Provider Encounter Details Date Type Department Care Team Description 03/30/2017 Office Visit Neurology at [facility] Shivam Rojas, Yeni, essential [facility] [place] [address] Neurology [phone] [place] [address] (Wo rk) Social History Tobacco Use Types Packs/Day Years Used Date Smoking Tobacco: Former Cigarettes 2 20 Quit : 01/19/1993 Smokeless Tobacco: Never Alcohol Use Standard Drinks/Week Comments Yes 0 (1 standard drink = 0.6 oz pure alcoho l) rare Sex Assigned at Date Recorded Not on [...] the tremor. I spent 25 minutes in axys-[id number] consultation with this patient, of which greater than half the visit was spent in supportive counseling and therapeutic planning. Shivam Rojas MD 03/30/2017 documented in this encounter Plan of Treatment Upcoming Encounters Date Type Specialty Care Team Description 06/16/2022 Infusion Hematology and Oncology 06/21/2022 Office Visit Neurology Tyler Rojas MD [facility] Neurology [place] [phone] (Wo rk) 06/29/2022 Appointment Cardiology Violetta Sanford M D [address] [place] [address] ( rk) 06/30/2022 Infusion Hematology and Oncology 07/14/2022 Infusion Hematology and Oncology 07/28/2022 Infusion Hematology and Oncology 08/11/2022 Infusion Hematology and Oncology 08/16/2022 Office Visit Audiology Mindy Moody, WENDI [facility] AUDIOLOGY [place], [place] [address] (Wo rk) 11/04/2022 Office Visit Rheumatology Dante Freedman, DA [facility] RHEUMATOLOGY [place], [place] [address] (Wo rk) documented as of this encounter Visit Diagnoses Diagnosis Tremor, essential Essential and other specified forms of t remor documented in this encounter Care Teams Bonbon Cream Warmer Relationship Specialty Start Date End Date Violetta Sanford MD PCP - General 04/02/14 [address] [place] [address] documented as of this encounter
--- OUTSIDE RECORDS SUMMARY | 2022-06-16 12:28 | XMS_ITS | Encounter Summary ---
:1955 Author Organization [facility] [place] [address] Care Team Providers Name Role Phone Violetta Sanford MD Primary Care Provider Reason for Visit Reason Onset Date Comments Medication Refill 10/20/2017 Encounter Details Date Type Department Care Team Description 10/20/2017 Refill Neurology at [facility] Shivam Rojas MD [facility] [place] [address] Neurology [phone] [place], [place] [address] (Wo rk) Social History Tobacco Use Types [...] Tyler Rojas MD [facility] Dr [place], [place] [address] (Wo rk) 06/29/2022 Appointment Cardiology Violetta Sanford M D [address] [place] [address] (Oscar rk) 06/30/2022 Infusion Hematology and Oncology 07/14/2022 Infusion Hematology and Oncology 07/28/2022 Infusion Hematology and Oncology 08/11/2022 Infusion Hematology and Oncology 08/16/2022 Office Visit Audiology Mindy Moody AUD [facility] AUDIOLOGY [place], [place] [address] (Wo rk) 11/04/2022 Office Visit Rheumatology Dante Freedman PA [facility] RHEUMATOLOGY [place], [place] [address] (Wo rk) documented as of this encounter Visit Diagnoses Not on filedocumented in this encounter Care Teams Compugraph Operator Relationship Specialty Start Date End Date Violetta Sanford MD PCP - General 04/02/14 [address] [place] [address] documented as of this encounter
--- OUTSIDE RECORDS SUMMARY | 2022-06-16 12:28 | XMS_ITS | Encounter Summary ---
:1955 Author Organization [facility] [place] [address] Care Team Providers Name Role Phone Violetta Sanford MD Primary Care Provider Reason for Visit Consultation (Routine) - Specialty Diagnoses / Procedures Referred By Contact Refer red To Contact Endocrinology Diagnoses Kidney replaced by transplant Type 2 diabetes mellitus with other kidney complication Immunosuppression Persistent proteinuria Alejo Garnett, Donell Hernandez MD MD [facility] Giovana R ENDOCRINOLOGY DEPT. [place] [address] Referral ID Status Reason Start Date Expiration Date Visits V isits Requested Authorized [id number] Consult, 03/08/2017 03/08/2018 6 6 Test & Treat Encounter Details Date Type Department Care Team Description 03/09/2017 Office Visit Endocrinology at [facility] Donell Hardin, Type 2 diabetes mellitus wit h complication, with long-term current use of insulin; [facility] S/P bilateral BKA (below knee amputation ); Drive [facility] Adult BMI 40.0-44.9 kg/sq m; [place] [id number] [place] [address] History of renal transplant [phone] [address]PT[address] [place] [id number] Social History Tobacco Use Types Packs/Day Years [...] From November 2016 1) DM2 - Mr Torres has fixed [...] :2011 last Cr:today last lipid panel:2011 regular fish bait picker:no special shoes:no flu shot :yes pneumovax: 2012 [...] OXYGEN-AIR DELIVERY SYSTEMS (HORIZON NASAL CPAP SYSTEM [facility]) Inhale into the lungs nightly. ??? albuterol [...] daily. 1 ??? Miscellaneous Medical [place] [facility] [place] [facility] [place]Non-Drug; Combo Route) route daily. Rubber sheath for leg prosthesis (2 pairs) 4 each PRN ??? VENTOLIN HFA 90 mcg/actuation HFA Aerosol Inhaler Inhale 2 puffs into the lungs as needed. 0 ??? Insulin Lispro (HUMALOG) 100 unit/mL Insulin Pen Inject 30-40 Units subcutaneously 4 times daily. ??? BD INSULIN PEN NEEDLE UF ORIG 29 gauge x 1/2 Needle 0 ??? Insulin [place], Disposable, (BD INSULIN PEN NEEDLE UF SHORT) [...] Neurology Tyler Rojas MD [facility] Neurology [place], [place] [phone] ([facility]) 06/29/2022 Appointment Cardiology Violetta Sanford M D [address] [place] [address] ([facility]) 06/30/2022 Infusion Hematology and Oncology 07/14/2022 Infusion Hematology and Oncology 07/28/2022 Infusion Hematology and Oncology 08/11/2022 Infusion Hematology and Oncology 08/16/2022 Office Visit Audiology Mindy Moody AUD [facility] AUDIOLOGY DEPT [place], [place] [address] (Wo rk) 11/04/2022 Office Visit Rheumatology Dante Freedman PA [facility] RHEUMATOLOGY [place], [place] [address] ([facility]) Scheduled Orders Name Type Priority Associated Diagnoses [...] Hemoglobin A1C 9.3 (H) 4.3 - 5.6 [facility] [...] Mellitus, Diabetes Care 2013; 36: Suppl. 1, S67-46 Est Avg Gluc 220 mg/dL [facility] Comment: eAG equivalents for HbA1c percentages: HbA1c(%) ?eAG(mg/dL) 6.0 ?126 6.5 ?140 7.0 ?154 7.5 ?169 8.0 ?183 8.5 ?197 9.0 ?212 9.5 ?226 10.0 ? 240 Limitations: The eAG calculation has not been validated on women, individuals below 18 years old and above 70 years old, and individuals with hemoglobinopathies. Additional resources are available on [facility] ADA website. Scooby MALDONADO, Nba J, Sydnee R, et al. ??Tr anslating the A1C assay into estimated average glucose values. ??Diabetes Care 2008:31(8):6806-1777. Specimen Anatomical Collection Method Collection Time Receive d Time (Source) Location / / Volume Laterality Blood specimen 03/09/2017 4:31 PM 017 4:40 (specimen) EDT PM EDT Resulting Agency Comment Spec In Lab Donell Hernandez MD CHEMISTRY ORDERABLES Performing Organization Address City/State/[place] [address] documented in this encounter Visit Diagnoses Diagnosis Type 2 diabetes mellitus with complicati on, with long-term current use of insulin S/P bilateral BKA (below knee amputation ) Lower limb amputation, below knee Adult BMI 40.0-44.9 kg/sq m Body Mass Index 40.0-44.9, adult History of renal transplant Kidney replaced by transplant documented in this encounter Care Teams Skiver Box Toe Relationship Specialty Start Date End Date Violetta Sanford MD PCP - General 04/02/14 [address] [place] [address] documented as of this encounter
--- OUTSIDE RECORDS SUMMARY | 2022-06-16 12:28 | XMS_ITS | Encounter Summary ---
:1955 Author Organization [facility] [place] [address] Care Team Providers Name Role Phone Violetta Sanford MD Primary Care Provider Encounter Details Date Type Department Care Team Description 04/21/2017 Hospital [place] [phone] Social History Tobacco Use Types Packs/Day [...] by 4 each 0 12/02/2015 Supply [facility].(Non-Drug; Combo MiscIndications: S/P [...] 03/15/2018 SYSTEMS (HORIZON nightly. NASAL CPAP SYSTEM MIS) albuterol (PROVENTIL) Take 2.5 mg by 0 [...] Rojas MD [facility] Neurology [place], [place] [phone] (Wo rk) 06/29/2022 Appointment Cardiology Violetta Sanford M D [address] [place] [address] (Oscar escobedo) 06/30/2022 Infusion Hematology and Oncology 07/14/2022 Infusion Hematology and Oncology 07/28/2022 Infusion Hematology and Oncology 08/11/2022 Infusion Hematology and Oncology 08/16/2022 Office Visit Audiology Mindy Moody, WENDI ONE [facility] AUDIOLOGY DEPT [place], [place] [address] (Wo rk) 11/04/2022 Office Visit Rheumatology Dante Freedman PA [facility] RHEUMATOLOGY [place], [place] [address] (Wo rk) documented as of this encounter Procedures Procedure Name Priority Date/Time Associated Diagnosis Comme nts TACROLIMUS LEVEL Routine 04/21/2017 11:00 AM Resu lts for this EDT procedure are i n the results section. documented in this encounter Results Tacrolimus level (04/21/2017 11:00 AM EDT) athologist Signature Tacrolimus Lvl 3.9 ng/mL [facility] Comment: Trough therapeutic: [...] City/State/[place] [address] documented in this encounter Visit Diagnoses Not on filedocumented in this encounter Care Teams Wellness Program Manager Relationship Specialty Start Date End Date Violetta Sanford MD PCP - General 04/02/14 [address] [place] [address] documented as of this encounter
--- OUTSIDE RECORDS SUMMARY | 2022-06-16 12:28 | XMS_ITS | Encounter Summary ---
:1955 Author Organization [facility] Address [address] [address] Care Team Providers Name Role Phone Violetta Sanford MD Primary Care Provider Reason for Visit Reason Comments Kidney Transplant Follow-up Immunotherapy Encounter Details Date Type Department Care Team Description 03/15/2018 Office Visit Solid Organ Alejo Garnett Kidney re placed by transplant; Transplant at [facility] MD Thang History of renal transplant; [facility] Imm unosuppression; Drive Aftercare following organ transplant; [place], [place] [employer] Persistent proteinuria [id number] [place] [address] [phone] Social History Tobacco Use Types Packs/Day Years [...] documented in this encounter Progress Notes Nicky Pyle, CHARCOAL KILN BURNER - 03/15/2018 10:40 AM EDT Confirmed patient's [...] Leroy Torres Transplant Date: 02/29/08?? Organ(s) Kidney?? [place] organ diagnosis: Diabetes Mellitus - Type II?? [...] Last test done 03/21/2015 which was normal. [place] kidney ultrasound looking for renal cell CA, [...] > 50% in direct face to face certified rehabilitation counselor. Nae Miller MD Nephrology Fellow I reviewed all of the above findings and assessment of Dr. Miller, edited the above note to reflect my assessment and examination and formulated the recommendations which accurately reflect mine. 30Min., >50% in direct face to face certified rehabilitation counselor. ? documented in this encounter Plan of Treatment Upcoming Encounters Date Type Specialty Care Team Description 06/16/2022 Infusion Hematology and Oncology 06/21/2022 Office Visit Neurology Tyler Rojas MD [facility] Neurology [place], [place] [phone] (Wo rk) 06/29/2022 Appointment Cardiology Violetta Sanford M D [address] [place] [address] (Wo rk) 06/30/2022 Infusion Hematology and Oncology 07/14/2022 Infusion Hematology and Oncology 07/28/2022 Infusion Hematology and Oncology 08/11/2022 Infusion Hematology and Oncology 08/16/2022 Office Visit Audiology Mindy Moody AUD ONE [facility] AUDIOLOGY DEPT [place], [place] [address] (Wo rk) 11/04/2022 Office Visit Rheumatology Dante Freedman PA [facility] RHEUMATOLOGY [place], [place] [address] (Wo rk) documented as of this encounter Results (ABNORMAL) Urinalysis with reflex Culture (03/15/2018 10:03 AM EDT) [facility] Method Time Signature Glucose UA 150 (A) Negative [facility] mg/dL [facility] Protein UA 30 (A) Negative [facility] mg/dL [facility] Bilirubin UA Negative Negative [facility] mg/dL [facility] Comment: Clinical correlation required for positi ve Urine Bilirubin results as false positive may occur with some drugs and d rug related products. If a false positive is suspected a serum total bili reyna should be considered if clinically indicated. Urobilinogen UA Normal Normal mg/dL [facility] pH UA 5.0 5.0 - 8.0 [facility] Blood UA Negative Negative mg/dL [facility] Ketones UA Negative Negative mg/dL [facility] Nitrite UA Negative Negative [facility] Leukocytes UA Negative Negative [facility] LABORATORY Appearance UA Clear Clear [facility] Spec [place] UA 1.015 1.002 - 1.030 [facility] Color UA Yellow Yellow [facility] Culture Reflexed No [facility] Specimen (Source) Anatomical Collection Method Collection Time Re ceived Time Location / / Volume Laterality Urine specimen 03/15/2018 10:03 8 obtained by clean AM EDT 10:13 AM E DT catch procedure (specimen) Resulting Agency Comment Spec In Lab Alejo Garnett MD URINE ORDERABLES Performing Organization Address City/[facility]/ZIP Code Phon e Number [address] (ABNORMAL) Protein/Creatinine Ratio, urine (03/15/2018 10:03 AM EDT) P athologist Signature U Creatinine 78 mg/dL [facility] U Protein Ran 37 (H) 0 - 12 [facility] mg/dL [facility] Prot/Cre Ratio 0.5 ratio [facility] Specimen Anatomical Collection Method Collection Time Receive d Time (Source) Location / / Volume Laterality Urine specimen 03/15/2018 10:03 8 (specimen) AM EDT 10:12 AM EDT Resulting Agency Comment Spec In Lab Alejo Garnett MD URINE ORDERABLES Performing Organization Address City/[facility]/ZIP Code Phon e Number [address] Phosphorus, urine, random (03/15/2018 10:03 AM EDT) P athologist Signature U Phosphorus 54.8 mg/dL [facility] Specimen Anatomical Collection Method Collection Time Receive d Time (Source) Location / / Volume Laterality Urine specimen 03/15/2018 10:03 8 (specimen) AM EDT 10:12 AM EDT Resulting Agency Comment Spec In Lab Alejo Garnett MD URINE ORDERABLES Performing Organization Address City/[facility]/[place] [address] BKV Quant Urine (03/15/2018 10:03 AM EDT) Component Value Ref Test Analysis Performed At [facility] gist Range Method Time Signature BKV Urine Not Detected [facility] LABORATORY BKV Urine BK Virus Urine Result Interpretation JERE Ramirez [facility] Result: BK Virus not detected HOSPITAL Specimen type: urine LABORATOR Y Assay Range: 2.80-7.80 log copies/mL (6.28x10^2 - 6.28x10^7 copies/mL) Methods: Quantitative real-time polymerase chain react ion (PCR) of viral DNA isolated from urine was performed using [employer] (formerly, [employer]) BKV analyte-specific reagents and the Applied Invenra 7 500 FAST Real-Time PCR System. In [...] acteristics determined by the Clinical Gen[facility] ed [facility] (CGAT) Laboratory at [facility]. It has not been cleared [...] Organization Address City/State/[place] [address] Creatinine, urine, random (03/15/2018 10:03 AM EDT) P athologist Signature U Creatinine 78 mg/dL [facility] Specimen Anatomical Collection Method Collection Time Receive d Time (Source) Location / / Volume Laterality Urine specimen 03/15/2018 10:03 8 (specimen) AM EDT 10:12 AM EDT Resulting Agency Comment Spec In Lab Alejo Garnett MD URINE ORDERABLES Performing Organization Address City/[facility]/ZIP Code Phon e Number [address] Calcium Creatinine Ratio, random urine (03/15/2018 10:03 AM EDT) P athologist Signature U Calcium 2.6 mg/dL [facility] U Creatinine 78 mg/dL [facility] Ca/Cre Ratio 0.03 ratio [facility] Specimen Anatomical Collection Method Collection Time Receive d Time (Source) Location / / Volume Laterality Urine specimen 03/15/2018 10:03 8 (specimen) AM EDT 10:12 AM EDT Resulting Agency Comment Spec In Lab Alejo Garnett MD URINE ORDERABLES Performing Organization Address City/[facility]/ZIP Code Phon e Number [address] Uric acid, urine, 24 hour (03/15/2018 9:45 AM EDT) P athologist Signature U24 Uric Conc 18.2 mg/dL [facility] U24 Uric Calc 0.46 0.25 - [facility] [address] LABORATORY Specimen Anatomical Collection Method Collection Time Receive d Time (Source) Location / / Volume Laterality Urine specimen 03/15/2018 9:45 AM 018 (specimen) EDT 10:45 AM EDT Resulting Agency Comment Spec In Lab Alejo Garnett MD URINE ORDERABLES Performing Organization Address City/[facility]/ZIP Code Phon e Number [address] (ABNORMAL) Protein, urine, 24 hour (03/15/2018 9:45 AM EDT) Analysis Performed At Patho logist Time Signature U24 Prot Conc 24 <=80 mg/dL [facility] U24 Prot Calc 0.60 (H) <=0.15 [facility]/[address] [place] [address] LABORATORY Specimen Anatomical Collection Method Collection Time Receive d Time (Source) Location / / Volume Laterality Urine specimen 03/15/2018 9:45 AM 08/22/2 018 (specimen) EDT 10:45 AM EDT Resulting Agency Comment Spec In Lab Alejo Garnett MD URINE ORDERABLES Performing Organization Address City/[facility]/ZIP Code Phon e Number [address] Phosphorus, urine, 24 hour (03/15/2018 9:45 AM EDT) P athologist Signature U24 Phos Conc 52.8 mg/dL [facility] U24 Phos Calc 1.3 0.4 - 1.3 [facility] gm/24hr [facility] Specimen Anatomical Collection Method Collection Time Receive d Time (Source) Location / / Volume Laterality Urine specimen 03/15/2018 9:45 AM 018 (specimen) EDT 10:45 AM EDT Resulting Agency Comment Spec In Lab Alejo Garnett MD URINE ORDERABLES Performing Organization Address City/[facility]/[place] [address] (ABNORMAL) Creatinine, urine, 24 hour (03/15/2018 9:45 AM EDT) Analysis Performed At Patho logist Time Signature U24 Creat Conc 88 mg/dL [facility] U24 Creat Calc 2.20 (H) 0.80 - [facility] 1.90 [facility]/[address] [place] [address] LABORATORY Specimen Anatomical Collection Method Collection Time Receive d Time (Source) Location / / Volume Laterality Urine specimen 03/15/2018 9:45 AM 018 (specimen) EDT 10:45 AM EDT Resulting Agency Comment Spec In Lab Alejo Garnett MD URINE ORDERABLES Performing Organization Address City/[facility]/[place] [address] (ABNORMAL) Creatinine Clearance, urine, 24 hour (03/15/2018 9:45 AM EDT) Analysis Performed At Patho logist Time Signature Creat 80 (L) 90 - 139 [facility] Clearance mL/min [facility] U24 Creat Conc 88 mg/dL [facility] U24 Creat Calc 2.20 (H) 0.80 - [facility] 1.90 [facility] gm/24hr [facility] LABORATORY Specimen Anatomical Collection Method Collection Time Receive d Time (Source) Location / / Volume Laterality Urine specimen 03/15/2018 9:45 AM 018 (specimen) EDT 10:45 AM EDT Resulting Agency Comment Spec In Lab Alejo Garnett MD URINE ORDERABLES Performing Organization Address City[facility]/[place] [address] (ABNORMAL) Calcium, urine, 24 hour (03/15/2018 9:45 AM EDT) P athologist Signature U24 Ca Conc 1.2 mg/dL [facility] U24 Ca Calc 30.0 (L) 50.0 - [facility] 300.0 [facility] mg/24hr [facility] Comment: Reference Range: 50.0-300.0 mg/ 24 hour based on diet. Specimen Anatomical Collection Method Collection Time Receive d Time (Source) Location / / Volume Laterality Urine specimen 03/15/2018 9:45 AM 018 (specimen) EDT 10:45 AM EDT Resulting Agency Comment Spec In Lab Alejo Garnett MD URINE ORDERABLES Performing Organization Address City/[facility]/ZIP Code Phon e Number [address] Gold Tube HOLD (03/15/2018 9:40 AM EDT) P athologist Signature Gold Hold Sample in [facility]. [facility] Specimen Anatomical Collection Method Collection Time Receive d Time (Source) Location / / Volume Laterality Blood specimen 03/15/2018 9:40 AM 018 9:49 (specimen) EDT AM EDT Alejo Garnett MD CHEMISTRY ORDERABLES Performing Organization Address City/[facility]/ZIP Code Phon e Number [address] Lavender Tube HOLD (03/15/2018 9:40 AM EDT) Patholo gist Method Time Signature Lavender Hold Sample in [facility]. [facility] Specimen Anatomical Collection Method Collection Time Receive d Time (Source) Location / / Volume Laterality Blood specimen 03/15/2018 9:40 AM 018 9:49 (specimen) EDT AM EDT Alejo Garnett MD HEMATOLOGY ORDERABLES Performing Organization Address City/[facility]/[place] [address] (ABNORMAL) Vitamin D, 25-Hydroxy (03/15/2018 9:40 AM EDT) P athologist Signature 25-OH Vit D 24 (L) 30 - 100 [facility] Total ng/mL [facility] Comment: Deficient <10 ng/mL Insufficient 10 to 29 ng/mL Sufficient 30 to 100 ng/mL Potential Intoxication >100 ng/mL According to the [place] National Osteoporosi s Foundation, Vitamin D concentrations >30 ng/mL are sufficient to protect bone health. ??The National Kidney Foundation has similarly stated that pat ients with Vitamin D concentrations <30ng/mL should be considered to be insu fficient or deficient. http://[facility].MailMag/nkf-guidelines http://[employer]/nejm-VitD The [employer] Vitamin D Immunoassay detec [...] Address City/State/[place] [address] Uric acid (03/15/2018 9:40 AM EDT) P athologist Signature Uric Acid 7.8 3.5 - 8.5 [facility] mg/dL [facility] Specimen Anatomical Collection Method Collection Time Receive d Time (Source) Location / / Volume Laterality Blood specimen 03/15/2018 9:40 AM 018 9:49 (specimen) EDT AM EDT Resulting Agency Comment Spec In Lab Alejo Garnett MD CHEMISTRY ORDERABLES Performing Organization Address City/[facility]/[place] [address] Tacrolimus level (03/15/2018 9:40 AM EDT) P athologist Signature Tacrolimus Lvl 7.0 ng/mL [facility] Comment: Trough therapeutic: ??5-15 ng/mL Performed by ultra-performance liquid ch romatography tandem mass spectrometry (UPLCMS/MS). This test was developed and its performa nce characteristics determined by [facility]. It has not been cleared or [...] Garnett MD CHEMISTRY ORDERABLES Performing Organization Address City/[facility]/[place] [address] (ABNORMAL) Reticulocyte Count (03/15/2018 9:40 AM EDT) Patholo gist Method Time Signature Retic Ct % 3.0 (H) 0.7 - 2.6 [facility] LABORATORY Retic Ct Abs 0.120 0.030 - [facility] 0.120 [facility] x10(6)/[facility] L LABORATORY Immature Retic% 21.8 (H) 0.0 - [facility] 15.6 % [facility] Reticulated Hgb 32.4 31.3 - [facility] 40.2 pg [facility] Specimen Anatomical Collection Method Collection Time Receive d Time (Source) Location / / Volume Laterality Blood specimen 03/15/2018 9:40 AM 018 9:49 (specimen) EDT AM EDT Resulting Agency Comment Spec In Lab Alejo Garnett MD HEMATOLOGY ORDERABLES Performing Organization Address City/State/[place] [address] (ABNORMAL) PTH (03/15/2018 9:40 AM EDT) P athologist Signature PTH 79 (H) 15 - 65 JERE CUEVASMELI pg/mL [facility] Specimen Anatomical Collection Method Collection Time Receive d Time (Source) Location / / Volume Laterality Blood specimen 03/15/2018 9:40 AM 018 9:49 (specimen) EDT AM EDT Resulting Agency Comment Spec In Lab Alejo Garnett MD CHEMISTRY ORDERABLES Performing Organization Address City/State/[place] [address] Phosphorus (03/15/2018 9:40 AM EDT) athologist Signature Phosphorus 3.4 2.5 - 4.5 JERE CUEVASMELI mg/dL [facility] Specimen Anatomical Collection Method Collection Time Receive d Time (Source) Location / / Volume Laterality Blood specimen 03/15/2018 9:40 AM 018 9:49 (specimen) EDT AM EDT Resulting Agency Comment Spec In Lab Alejo Garnett MD CHEMISTRY ORDERABLES Performing Organization Address City/[facility]/[place] [address] (ABNORMAL) Magnesium (03/15/2018 9:40 AM EDT) athologist Signature Magnesium 0.59 (L) 0.69 - 1.07 [facility] MELI mmol/L [facility] Specimen Anatomical Collection Method Collection Time Receive d Time (Source) Location / / Volume Laterality Blood specimen 03/15/2018 9:40 AM 018 9:49 (specimen) EDT AM EDT Resulting Agency Comment Spec In Lab Alejo Garnett MD CHEMISTRY ORDERABLES Performing Organization Address City/State/[place] [address] Lipid Panel (03/15/2018 9:40 AM EDT) P athologist Signature Chol, Total 96 mg/dL [facility] Comment: Lower Risk: <200 mg/dL Average Risk: 200-239 mg/dL Higher Risk: >nv=757 mg/dL Triglycerides 235 mg/dL [facility] Comment: Average Risk/Lower Risk: <150 mg/dL Borderline High Risk: 150-199 mg/dL High Risk: 200-499 mg/dL Very High Risk: >ze=885 mg/dL HDL 22 mg/dL [facility] Comment: Males: ?? Higher Risk: <40 mg/dL Females: ?? HIgher Risk: <50 mg/dL LDL Cholesterol 27 mg/dL [facility] Comment: Lowest Risk: <100 mg/dL Lower Risk: 100-129 mg/dL Borderline High Risk: 130-159 mg/dL High Risk: 160-189 mg/dL Very High Risk: >uf=517 mg/dL Chol/HDL Ratio 4.4 ratio [facility] Lipid Interpretation See Note [facility] Comment: Lipid management should be guided by a p atient? s ASCVD risk, goals and preferences. ACC/AHA Guidelines recommend high intens ity statin if clinical ASCVD or LDL greater than or equal to 190 mg/dL. http://[facility].MailMag/NZC-GYL-Nicncoroy Adults aged 40-75 with LDL 70-189 mg/dL should have their 10 year ASCVD risk estimated with the ACC/AHA ASCVD risk es timator http://tools.acc.org/HWLST-Tdsq-Xguwvigj r/ Statin should be discussed if risk [...] Organization Address City/State/ZIP Code Phon e Number [place] [id number] (ABNORMAL) Hemoglobin A1c (03/15/2018 [...] 36: Suppl. 1, S67-74 Est Avg Gluc 206 mg/dL [facility] Comment: eAG [...] resources are available on ADA website. Scooby MALDONADO Nba J, Sydnee R, et al. ??Tr anslating the A1C assay into estimated average glucose values. ??Diabetes Care 2008:31(8):3821-6661. Specimen Anatomical Collection Method Collection Time Receive d Time (Source) Location / / Volume Laterality Blood specimen 03/15/2018 9:40 AM 018 9:49 (specimen) EDT AM EDT Resulting Agency Comment Spec In Lab Alejo Garnett MD CHEMISTRY ORDERABLES Performing Organization Address City/State/[place] [address] (ABNORMAL) CMP w/fasting Glucose (03/15/2018 9:40 AM EDT) athologist Signature Glucose 248 (H) 65 - 99 [facility] Fasting mg/dL [facility] Comment: ?Fasting* Glucose Interpretive C riteria [...] of Diabetes Mellitus, Position Statement from the [place] [employer]. ??Diabete s Care, Volume 33, Supplement 1, Jul 2009 BUN 30 (H) 10 - 20 mg/dL [facility] Creatinine 1.90 (H) 0.80 - 1.50 mg/dL [facility] Sodium 139 135 - 145 mmol/L [facility] Potassium 4.9 3.5 - 5.0 mmol/L [facility] Comment: Please note: ??Patients with WBC >100,00 0 may have falsely elevated Potassium levels. ??For accurate Potassium quantif ication in these patients send serum separator tube (gold top) for subsequent determinations. ??Contact the Clinical Chemistry Laboratory if there are any qu estions. Chloride 107 98 - 107 mmol/L [facility] CO2 21 (L) 22 - 31 mmol/L [facility] Anion Gap 11 5 - 15 mmol/L [facility] Calcium 9.2 8.5 - 10.5 mg/dL [facility] Total Protein 8.0 6.1 - 8.0 gm/dL [facility] Albumin 3.5 3.2 - 5.2 gm/dL [facility] AST 22 0 - 39 unit/L [facility] ALT 25 0 - 55 unit/L [facility] Alk Phos 153 (H) 40 - 120 unit/L [facility] Total Bilirubin 0.5 0.2 - 1.3 mg/dL [facility] Estimated GFR 36 (L) >=60 mL/min/1.73 m?? [facility] Comment: The eGFR was calculated using the CKD-EP I equation. As with all creatinine based estimates of kidney function, eGFR values calculated with the CKD-EPI equation are not accurate in patients wi th acute kidney failure, extremes of body mass or the acutely ill. http://[employer]/MCnkf eGFR 42 (L) >=60 mL/min/1.73 m?? [facility] Comment: The eGFR was calculated using the CKD-EP I equation. As with all creatinine based estimates of kidney function, eGFR values calculated with the CKD-EPI equation are not accurate in patients wi th acute kidney failure, extremes of body mass or the acutely ill. http://[employer]/DHMCnkf Specimen Anatomical Collection Method Collection Time Receive d Time (Source) Location / / Volume Laterality Blood specimen 03/15/2018 9:40 AM 018 9:49 (specimen) EDT AM EDT Resulting Agency Comment Spec In Lab Alejo Ganrett MD CHEMISTRY ORDERABLES Performing Organization Address City/State/[place] [address] 1,25-dihydroxycholecalciferol (03/15/2018 9:40 AM EDT) P athologist Signature Vit D 18 - JERE GARRISON pg/mL [facility] Comment: ADDITIONAL INFORMATIO N This test was developed and its performa nce characteristics determined by [facility] in a manner co nsistent with CLIA requirements. This test has not been carlos ared or approved by the U.S. Food and Drug Administration. Test Performed by: [facility] [address] [place], [place] [address] Specimen Anatomical Collection Method Collection Time Receive d Time (Source) Location / / Volume Laterality Blood specimen 03/15/2018 9:40 AM 018 (specimen) EDT 11:16 AM EDT Resulting Agency Comment Spec In Lab Alejo Garnett MD CHEMISTRY ORDERABLES Performing Organization Address City/State/[place] [address] documented in this encounter Visit Diagnoses Diagnosis Kidney replaced by transplant History of renal transplant Kidney replaced by transplant Immunosuppression Unspecified disorder of immune mechanism Aftercare following organ transplant Persistent proteinuria Proteinuria documented in this encounter Care Teams English Horn Player Relationship Specialty Start Date End Date Violetta Sanford MD PCP - General 04/02/14 [address] [place] [address] documented as of this encounter
--- OUTSIDE RECORDS SUMMARY | 2022-06-16 12:28 | XMS_ITS | Encounter Summary ---
:1955 Author Organization [facility] Address [address] [place] [address] Care Team Providers Name Role Phone Violetta Sanford MD Primary Care Provider Encounter Details Date Type Department Care Team Description 06/14/2017 Office Visit Endocrinology at [facility] Donell Hernandez, Type 2 diabetes mellitus wit h complication, with long-term current use of insulin; [facility] Adult BMI 40.0-44.9 kg/sq m; [facility] CKD (chronic kidney disease) stage 3, GFR 30-59 ml/min; [place] [address] [place] [address] DR Weight loss [phone] ENDOCR[address]OLOGY DEPT. [place], [place] [address] Social History Tobacco Use Types [...] EST documented in this encounter Progress Notes Comi, Donell J, MD - 06/14/2017 11:00 AM EST Year [...] eye exam: Within 6 months last microalbumin :2012 last Cr: today last lipid panel:2011 regular academic advising director:no special shoes:no flu shot :yes pneumovax: 2011 [...] x 1/2 Needle 1 Device by [facility].(Non- Drug; Combo Route) route 3 times daily. [...] OXYGEN-AIR DELIVERY SYSTEMS ([facility]IZON NASAL CPAP SYSTEM [facility]) Inhale into the lungs [...] daily. 1 ??? Miscellaneous Medical Supply [facility] 4 Devices by [facility].(Non-Drug; Combo Route) route daily. Rubber sheath for [...] Rojas MD [facility] Neurology [place], [place] [phone] (Wo rk) 06/29/2022 Appointment Cardiology Violetta Sanford M D [address] [place], [place] [address] (Wo rk) 06/30/2022 Infusion Hematology and Oncology 07/14/2022 Infusion Hematology and Oncology 07/28/2022 Infusion Hematology and Oncology 08/11/2022 Infusion Hematology and Oncology 08/16/2022 Office Visit Audiology Mindy Moody AUD [facility] AUDIOLOGY [place], [place] [address] (Wo rk) 11/04/2022 Office Visit Rheumatology Dante Freedman PA [facility] RHEUMATOLOGY [place], [place] [address] ( rk) documented as of this encounter Visit Diagnoses Diagnosis Type 2 diabetes mellitus with complicati on, with long-term current use of insulin Adult BMI 40.0-44.9 kg/sq m Body Mass Index 40.0-44.9, adult CKD (chronic kidney disease) stage 3, GF R 30-59 ml/min Chronic kidney disease, Stage III (moder ate) Weight loss Loss of weight documented in this encounter Care Teams Advertising Copywriter Relationship Specialty Start Date End Date Violetta Sanford MD PCP - General 04/02/14 [address] [place] [address] documented as of this encounter
--- OUTSIDE RECORDS SUMMARY | 2022-06-16 12:28 | XMS_ITS | Encounter Summary ---
:1955 Author Organization [facility] [place] [address] Care Team Providers Name Role Phone Violetta Sanford MD Primary Care Provider Encounter Details Date Type Department Care Team Description 04/06/2018 Refill Solid Organ Transplant Lynda Pyle, [place] [address] Social History Tobacco Use Types Packs/Day [...] like to change his immunosuppression medications to [facility] mail order pharmacy and stay on brand name Prograf. Telephone Encounter - Nicky Pyle CMA - 04/06/2018 10:14 AM EDT ----- Message from Abiola Kelly sent at 04/06/2018 9:49 AM EDT ----- Regarding: Rx Contact: Leroy was told by Radha in [facility] that they only carry the generic brand [...] Rojas MD [facility] Neurology [place], [place] [phone] (Wo rk) 06/29/2022 Appointment Cardiology Violetta Sanford M D [address] [place], [place] [address] (Wo rk) 06/30/2022 Infusion Hematology and Oncology 07/14/2022 Infusion Hematology and Oncology 07/28/2022 Infusion Hematology and Oncology 08/11/2022 Infusion Hematology and Oncology 08/16/2022 Office Visit Audiology Mindy Moody AUD [facility] AUDIOLOGY [place], [place] [address] (Wo rk) 11/04/2022 Office Visit Rheumatology Dante Freedman PA [facility] RHEUMATOLOGY [place], [place] [address] (Wo rk) documented as of this encounter Visit Diagnoses Diagnosis Transplanted kidney Kidney replaced by transplant documented in this encounter Care Teams Law Writer Relationship Specialty Start Date End Date Violetta Sanford MD PCP - General 04/02/14 [address] [place], [place] [address] documented as of this encounter
--- OUTSIDE RECORDS SUMMARY | 2022-06-16 12:28 | XMS_ITS | Encounter Summary ---
:1955 Author Organization [facility] [place] [address] Care Team Providers Name Role Phone Violetta Sanford MD Primary Care Provider Encounter Details Date Type Department Care Team Description 05/04/2018 Telephone Solid Organ [place]plant [place] [address] Social History Tobacco Use Types Packs/Day [...] to report the following: He went to [facility] because he wasn't feeling good. He did [...] Tyler Rojas MD [facility] Neurology [place], [place] [phone] (Wo rk) 06/29/2022 Appointment Cardiology Violetta Sanford M D [address] [place], [place] [address] (Wo rk) 06/30/2022 Infusion Hematology and Oncology 07/14/2022 Infusion Hematology and Oncology 07/28/2022 Infusion Hematology and Oncology 08/11/2022 Infusion Hematology and Oncology 08/16/2022 Office Visit Audiology Mindy Moody AUD [facility] AUDIOLOGY [place], [place] [address] (Wo rk) 11/04/2022 Office Visit Rheumatology Dante Freedman PA [facility] RHEUMATOLOGY [place], [place] [address] (Wo rk) documented as of this encounter Visit Diagnoses Not on filedocumented in this encounter Care Teams Planning Assistant Relationship Specialty Start Date End Date Violetta Sanford MD PCP - General 04/02/14 [address] [place], [place] [address] documented as of this encounter
--- OUTSIDE RECORDS SUMMARY | 2022-06-16 12:28 | XMS_ITS | Encounter Summary ---
:1955 Author Organization [facility] [place] [address] Care Team Providers Name Role Phone Violetta Sanford MD Primary Care Provider Encounter Details Date Type Department Care Team Description 05/16/2018 Notes Only Solid Organ Transpla nt at [facility] [place] [address] Social History Tobacco Use Types Packs/Day [...] Calderon - 05/16/2018 11:55 AM EDT Transplant Forging Die Finisher Note: Patient left message on medication refill line stating that he can't get Prograf at [facility] ([facility] bought out). Called patient back to discuss pharmacy options for Brand Prograf. Call went to , left message requesting that he call back. Referral to [facility] for verification of insurance only at this time. documented in this encounter Plan of Treatment Upcoming Encounters Date Type Specialty Care Team Description 06/16/2022 Infusion Hematology and Oncology 06/21/2022 Office Visit Neurology Tyler Rojas MD [facility] er [address] [place], [place] [phone] (Wo rk) 06/29/2022 Appointment Cardiology Violetta Sanford M D [address] [place], [place] [address] (Wo rk) 06/30/2022 Infusion Hematology and Oncology 07/14/2022 Infusion Hematology and Oncology 07/28/2022 Infusion Hematology and Oncology 08/11/2022 Infusion Hematology and Oncology 08/16/2022 Office Visit Audiology Mindy Moody, [facility] AUDIOLOGY DEPT [place], [place] [address] (Wo rk) 11/04/2022 Office Visit Rheumatology Dante Freedman PA [facility] RHEUMATOLOGY [place], [place] [address] ( rk) documented as of this encounter Visit Diagnoses Not on filedocumented in this encounter Care Teams Accredited Pharmacy Technician Relationship Specialty Start Date End Date Violetta Sanford MD PCP - General 04/02/14 [address] [place], [place] [address] documented as of this encounter
--- OUTSIDE RECORDS SUMMARY | 2022-06-16 12:28 | XMS_ITS | Encounter Summary ---
:1955 Author Organization [facility] [place] [address] Care Team Providers Name Role Phone Violetta Sanford MD Primary Care Provider Reason for Visit Reason Onset Date Comments Other 04/05/2017 Encounter Details Date Type Department Care Team Description 04/05/2017 Telephone Neurology at [facility] Shivam Rojas MD [facility] [place] [address] Neurology [phone] [place], [place] [phone] (Wo rk) Social History [...] the day Best number to reach caller: [phone] Reason for call: Pateint called to report that he is taking propranolol three times a day. The doctor had asked for confirmation on how he is taking it. documented in this encounter Plan of Treatment Upcoming Encounters Date Type Specialty Care Team Description 06/16/2022 Infusion Hematology and Oncology 06/21/2022 Office Visit Neurology Tyler Rojas MD [facility] Neurology [place], [place] [address] (Wo rk) 06/29/2022 Appointment Cardiology Violetta Sanford M D [address] [place], [place] [address] (Wo rk) 06/30/2022 Infusion Hematology and Oncology 07/14/2022 Infusion Hematology and Oncology 07/28/2022 Infusion Hematology and Oncology 08/11/2022 Infusion Hematology and Oncology 08/16/2022 Office Visit Audiology Mindy Moody AUD [facility] AUDIOLOGY [place], [place] [address] (Wo rk) 11/04/2022 Office Visit Rheumatology Dante Freedman PA [facility] RHEUMATOLOGY [place], [place] [address] (Wo rk) documented as of this encounter Visit Diagnoses Not on filedocumented in this encounter Care Teams Greens Laborer Relationship Specialty Start Date End Date Violetta Sanford MD PCP - General 04/02/14 [address] [place], [place] [address] documented as of this encounter
--- OUTSIDE RECORDS SUMMARY | 2022-06-16 12:28 | XMS_ITS | Encounter Summary ---
:1955 Author Organization [facility] [place] [address] Care Team Providers Name Role Phone Violetta Sanford MD Primary Care Provider Encounter Details Date Type Department Care Team Description 05/15/2018 Orders Only Solid Organ Transplant Loraine Galvan R N [place] [address] Social History Tobacco Use Types Packs/Day Years [...] [facility] Neurology [place], [place] [address] (Wo rk) 06/29/2022 Appointment Cardiology Violetta Sanford M D [facility] [address] [place], [place] [address] (Oscar rk) 06/30/2022 Infusion Hematology and Oncology 07/14/2022 Infusion Hematology and Oncology 07/28/2022 Infusion Hematology and Oncology 08/11/2022 Infusion Hematology and Oncology 08/16/2022 Office Visit Audiology Mindy Moody AUD [facility] AUDIOLOGY DEPT [place], [place] [address] (Wo rk) 11/04/2022 Office Visit Rheumatology Dante Freedman, PA [facility] RHEUMATOLOGY [place], [place] [address] (Wo rk) documented as of this encounter Visit Diagnoses Diagnosis Transplanted kidney Kidney replaced by transplant documented in this encounter Care Teams Oyster Worker Relationship Specialty Start Date End Date Violetta Sanford MD PCP - General 04/02/14 [address] [place] [address] documented as of this encounter
--- OUTSIDE RECORDS SUMMARY | 2022-06-16 12:28 | XMS_ITS | Encounter Summary ---
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 [address] [place] [address] Referral ID Status Reason Start Date Expiration Date Visits V isits Requested Authorized [id number] Consult, 03/08/2017 03/08/2018 6 6 Test & Treat Reason for Visit Reason Comments Kidney Transplant Follow-up Immunotherapy Encounter Details Date Type Department Care Team Description 02/28/2017 Office Visit Solid Organ Alejo Garnett Kidney re placed by transplant; Transplant at [facility] MD Thang Type 2 diabetes mellitus with other kidn ey complication; [facility] Imm unosuppression; Drive H/O kidney transplant; [place] 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 Leroy Dailey [id number] 1955 ? Transplant ID: Date: 02/28/2017 Patient: Leroy Dailey Transplant Date: 02/29/08 Organ(s) Kidney [place] organ diagnosis: Diabetes Mellitus - Type II From Transplant: 9 years ?? Transplant ID: Mr. Leory Dailey is a White Not nor 61 y.o. male who is Status Post Kidney transplantation. Patient referred by Dr. Xiao. Mr. Leroy Dailey presents to clinic forroutine follow-up of care, for Kidney transplantation. Trouble sleeping at night. MELISSA was diagnosed and Ski Technician ordered CPAP machine at night with nebz [...] diabetics done 03/21/2015 (next one in 2018) [place] kidney ultrasound looking for renal cell CA, [...] mL, Rfl: 11 ??? OXYGEN-AIR DELIVERY SYSTEMS ([place] NASAL CPAP SYSTEM [facility]), Inhale into the lungs nightly., Disp: , [...] Rfl: 1 ??? Miscellaneous Medical Supply [facility], 4 Devices by [facility].(Non-Drug; Combo Route) route daily. [employer]heath [...] , Disp: , Rfl: 0 ??? Insulin [place], Disposable, (BD INSULIN PEN NEEDLE UF SHORT) [...] UA Latest Ref Range: Clear Clear Spec [place] UA Latest Ref Range: 1.002 - 1.030 [...] Rojas MD [facility] Neurology [place], [place] [phone] (Wo rk) 06/29/2022 Appointment Cardiology Violetta Sanford M D [address] [place] [address] (Oscar rk) 06/30/2022 Infusion Hematology and Oncology 07/14/2022 Infusion Hematology and Oncology 07/28/2022 Infusion Hematology and Oncology 08/11/2022 Infusion Hematology and Oncology 08/16/2022 Office Visit Audiology Mindy Moody, WENDI [facility] AUDIOLOGY DEPT [place], [place] [address] (Wo rk) 11/04/2022 Office Visit Rheumatology Dante Freedman PA [facility] RHEUMATOLOGY [place], [place] [address] (Oscar escobedo) Scheduled Referrals Name Type Priority Associated Order Schedule Diagnoses Referral to Outpatient Referral Routine Kidney replaced by Or dered: Endocrinology transplant 03/08/2017 Type 2 diabetes mellitus with other kidney complicat ion Immunosuppressio n Persistent proteinuria documented as of this encounter Results (ABNORMAL) Urinalysis with reflex Culture (02/28/2017 10:13 AM EDT) [facility] Method Time Signature Glucose UA >=500 Negative [facility] (Critical) mg/dL [facility] Comment: Urinalysis result NOT critical without a combination of Glucose greater than or equal to 500mg/dl AND Ketones greater th an or equal to 80mg/dl. Protein UA 30 (A) Negative mg/dL [facility] Bilirubin UA Negative Negative mg/dL [facility] Comment: Clinical correlation required for positi ve Urine Bilirubin results as false positive may occur with some drugs and d rug related products. If a false positive is suspected a serum total bili reyna should be considered if clinically indicated. Urobilinogen UA Normal Normal mg/dL [facility] pH UA 5.0 5.0 - 8.0 [facility] Blood UA Negative Negative mg/dL [facility] Ketones UA Negative Negative mg/dL [facility] Nitrite UA Negative Negative [facility] Leukocytes UA Negative Negative [facility] Appearance UA Clear Clear [facility] Spec [place] UA 1.013 1.002 - 1.030 [facility] Color UA Yellow Yellow [facility] RBC UA 1 0 - 3 /HPF [facility] WBC UA 1 0 - 3 /HPF [facility] Squam Epith UA <1 <=4 /HPF [facility] Culture Reflexed No [facility] Specimen (Source) Anatomical Collection Method Collection Time Re ceived Time Location / / Volume Laterality Urine specimen 02/28/2017 10:13 7 obtained by clean AM EDT 10:23 AM E DT catch procedure (specimen) Resulting Agency Comment Spec In Lab Alejo Garnett MD URINE ORDERABLES Performing Organization Address City/State/[place] [address] (ABNORMAL) Protein/Creatinine Ratio, urine (02/28/2017 10:13 AM EDT) athologist Signature U Creatinine 89 mg/dL [facility] U Protein Ran 35 (H) 0 - 12 [facility] mg/dL [facility] Prot/Cre Ratio 0.4 ratio [facility] Specimen Anatomical Collection Method Collection Time Receive d Time (Source) Location / / Volume Laterality Urine specimen 02/28/2017 10:13 7 (specimen) AM EDT 10:23 AM EDT Resulting Agency Comment Spec In Lab Alejo Garnett MD URINE ORDERABLES Performing Organization Address City/State/[place] [address] Gold Tube HOLD (02/28/2017 10:05 AM EDT) P athologist Signature Gold Hold Sample in [facility] LABORATORY Specimen Anatomical Collection Method Collection Time Receive d Time (Source) Location / / Volume Laterality Blood specimen 02/28/2017 10:05 7 (specimen) AM EDT 10:13 AM EDT Alejo Garnett MD CHEMISTRY ORDERABLES Performing Organization Address City/State/[place] [address] Lavender Tube HOLD (02/28/2017 10:05 AM EDT) Patholo gist Method Time Signature Lavender Hold Sample in [facility]. [facility] Specimen Anatomical Collection Method Collection Time Receive d Time (Source) Location / / Volume Laterality Blood specimen 02/28/2017 10:05 7 (specimen) AM EDT 10:13 AM EDT Alejo Garnett MD HEMATOLOGY ORDERABLES Performing Organization Address City/[facility]/[place] [address] (ABNORMAL) Uric acid (02/28/2017 10:05 AM EDT) P athologist Signature Uric Acid 9.1 (H) 3.5 - 8.5 [facility] mg/dL [facility] Specimen Anatomical Collection Method Collection Time Receive d Time (Source) Location / / Volume Laterality Blood specimen 02/28/2017 10:05 7 (specimen) AM EDT 10:13 AM EDT Resulting Agency Comment Spec In Lab Alejo Garnett MD CHEMISTRY ORDERABLES Performing Organization Address [facility] Phon e Number [address] Tacrolimus level (02/28/2017 10:05 AM EDT) P athologist Signature Tacrolimus Lvl 5.9 ng/mL [facility] Comment: Trough therapeutic: ??5-15 ng/mL Performed by ultra-performance liquid ch romatography tandem mass spectrometry (UPLCMS/MS). This test was developed and its performa nce characteristics determined by [facility]. It has not been cleared or approved by the FDA. The laboratory is regulated under CLIA a s qualified to perform high-complexity testing. This test is used for clinical purposes. It should not be regarded as investigational or for research. Specimen Anatomical Collection Method Collection Time Receive d Time (Source) Location / / Volume Laterality Blood specimen 02/28/2017 10: 7 (specimen) AM EDT 11:13 AM EDT Resulting Agency Comment Spec In Lab Alejo Garnett MD CHEMISTRY ORDERABLES Performing Organization Address City/[facility]/ZIP Code Phon e Number [address] (ABNORMAL) Reticulocyte Count (02/28/2017 10:05 AM EDT) Patholo gist Method Time Signature Retic Ct % 3.4 (H) 0.7 - 2.6 [facility] MELI % [facility] Retic Ct Abs 0.140 (H) 0.030 - [facility] 0.120 [facility] x10(6)/[facility] L LABORATORY Immature Retic% 21.7 (H) 0.0 - [facility] 15.6 % [facility] Reticulated Hgb 33.9 31.3 - [facility] 40.2 pg [facility] Specimen Anatomical Collection Method Collection Time Receive d Time (Source) Location / / Volume Laterality Blood specimen 02/28/2017 10:05 7 (specimen) AM EDT 10:13 AM EDT Resulting Agency Comment Spec In Lab Alejo Garnett MD HEMATOLOGY ORDERABLES Performing Organization Address City/State/ZIP Code Phon e Number [address] Phosphorus (02/28/2017 10:05 AM EDT) P athologist Signature Phosphorus 3.2 2.5 - 4.5 [facility] Specimen Anatomical Collection Method Collection Time Receive d Time (Source) Location / / Volume Laterality Blood specimen 02/28/2017 10:05 7 (specimen) AM EDT 10:13 AM EDT Resulting Agency Comment Spec In Lab Alejo Garnett MD CHEMISTRY ORDERABLES Performing Organization Address City/State/ZIP Code Phon e Number [address] Magnesium (02/28/2017 10:05 AM EDT) P athologist Signature Magnesium 0.72 0.69 - 1.07 [facility] MELI mmol/L [facility] Specimen Anatomical Collection Method Collection Time Receive d Time (Source) Location / / Volume Laterality Blood specimen 02/28/2017 10:05 7 (specimen) AM EDT 10:13 AM EDT Resulting Agency Comment Spec In Lab Alejo Garnett MD CHEMISTRY ORDERABLES Performing Organization Address City/State/ZIP [place] [address] (ABNORMAL) Comprehensive metabolic panel (non-fasting) (02/28/2017 10:05 AM EDT) P athologist Signature Glucose Lvl 305 (H) 65 - 199 [facility] mg/dL [facility] Comment: Diabetes: >=200 mg/dL plus symp toms BUN 32 (H) 10 - 20 mg/dL [facility] Creatinine 1.91 (H) 0.80 - 1.50 mg/dL [facility] Comment: Please note that the pediatric reference intervals supplied above were not validated at [facility]. Results from pediatri c patients should be interpreted in conjunction to the patient's age, height and muscle mass. Sodium 137 135 - 145 mmol/L [facility] Potassium 4.9 3.5 - 5.0 mmol/L [facility] Comment: Please note: ??Patients with WBC >100,00 0 may have falsely elevated Potassium levels. ??For accurate Potassium quantif ication in these patients send serum separator tube (gold top) for subsequent determinations. ??Contact the Clinical Chemistry Laboratory if there are any qu estions. Chloride 102 98 - 107 mmol/L [facility] CO2 22 22 - 31 mmol/L [facility] Anion Gap 13 5 - 15 mmol/L [facility] Calcium 9.6 8.5 - 10.5 mg/dL [facility] Total Protein 8.0 6.1 - 8.0 gm/dL [facility] Albumin 3.4 3.2 - 5.2 gm/dL [facility] AST 16 0 - 39 unit/L [facility] ALT 21 0 - 55 unit/L [facility] Alk Phos 146 (H) 40 - 120 unit/L [facility] Total Bilirubin 0.5 0.2 - 1.3 mg/dL [facility] Estimated GFR 36 (L) >=60 JERE Ramirez [facility] Comment: This estimated GFR [...] the following links into your internet browser. [email or web address] [email or web address] Specimen Anatomical Collection Method Collection Time Receive d Time (Source) Location / / Volume Laterality Blood specimen 02/28/2017 10:05 7 (specimen) AM EDT 10:13 AM EDT Resulting Agency Comment Spec In Lab Alejo Garnett MD CHEMISTRY ORDERABLES Performing Organization Address City/State/ZIP [place] [address] Cholesterol, total (02/28/2017 10:05 AM EDT) [facility] gist Method Time Signature Chol, Total 103 <=239 JERE mg/dL [facility] Lipid See Note JERE Desai [facility] Comment: Lipid management should be guided by a p atient? s ASCVD risk, goals and preferences. ACC/AHA Guidelines recommend high intens ity statin if clinical ASCVD or LDL greater than or equal to 190 mg/dL. http://MobileMD/STH-TJU-Wsmzmfbkn Adults aged 40-75 with LDL 70-189 mg/dL should have their 10 year ASCVD risk estimated with the ACC/AHA ASCVD risk es timator http://tools.acc.org/GRAGN-Ndyq-Hkmypwrk r/ Statin should be discussed if risk [...] MD CHEMISTRY ORDERABLES Performing Organization Address City/[facility]/ZIP Code Phon e Number [address] (ABNORMAL) Protein, urine, 24 hour (02/28/2017 9:00 AM EDT) Analysis Performed At Patho logist Time Signature U24 Prot Conc 30 <=80 mg/dL [facility] U24 Prot Calc 0.62 (H) <=0.15 [facility] gm/24hr [facility] Specimen Anatomical Collection Method Collection Time Receive d Time (Source) Location / / Volume Laterality Urine specimen 02/28/2017 9:00 AM 017 (specimen) EDT 11:38 AM EDT Resulting Agency Comment Spec In Lab Alejo Garnett MD URINE ORDERABLES Performing Organization Address City/[facility]/ZIP Code Phon e Number [address] Phosphorus, urine, 24 hour (02/28/2017 9:00 AM EDT) P athologist Signature U24 Phos Conc 41.5 mg/dL [facility] U24 Phos Calc 0.9 0.4 - 1.3 [facility] gm/24hr [facility] Specimen Anatomical Collection Method Collection Time Receive d Time (Source) Location / / Volume Laterality Urine specimen 02/28/2017 9:00 AM 017 (specimen) EDT 11:38 AM EDT Resulting Agency Comment Spec In Lab Alejo Garnett MD URINE ORDERABLES Performing Organization Address City/State/[place] [address] (ABNORMAL) Calcium, urine, 24 hour (02/28/2017 9:00 AM EDT) P athologist Signature U24 Ca Conc 1.4 mg/dL [facility] U24 Ca Calc 28.7 (L) 50.0 - [facility] 300.0 [facility] mg/24hr [facility] Comment: Reference Range: 50.0-300.0 mg/ 24 hour based on diet. Specimen Anatomical Collection Method Collection Time Receive d Time (Source) Location / / Volume Laterality Urine specimen 02/28/2017 9:00 AM 017 (specimen) EDT 11:38 AM EDT Resulting Agency Comment Spec In Lab Alejo Garnett MD URINE ORDERABLES Performing Organization Address City/[facility]/ZIP Code Phon e Number [address] Creatinine, urine, 24 hour (02/28/2017 9:00 AM EDT) athologist Signature U24 Creat Conc 80 mg/dL [facility] U24 Creat Calc 1.64 0.80 - [facility] 1.90 [facility] gm/24hr [facility] Specimen Anatomical Collection Method Collection Time Receive d Time (Source) Location / / Volume Laterality Urine specimen 02/28/2017 9:00 AM 017 (specimen) EDT 11:38 AM EDT Resulting Agency Comment Spec In Lab Alejo Garnett MD URINE ORDERABLES Performing Organization Address City/State/[place] [address] documented in this encounter Visit Diagnoses Diagnosis Kidney replaced by transplant Type 2 diabetes mellitus with other kidn ey complication Immunosuppression Unspecified disorder of immune mechanism H/O kidney transplant Kidney replaced by transplant Aftercare following organ transplant Persistent proteinuria Proteinuria documented in this encounter Care Teams Child Welfare Counselor Relationship Specialty Start Date End Date Violetta Sanford MD PCP - General 04/02/14 [address] [place] [address] documented as of this encounter
--- OUTSIDE RECORDS SUMMARY | 2022-06-16 12:28 | XMS_ITS | Encounter Summary ---
:1955 Author Organization [facility] Address [facility] [place] [address] Care Team Providers Name Role Phone Violetta Snaford MD Primary Care Provider Encounter Details Date Type Department Care Team Description 12/13/2017 Laboratory Appointment Lab 3L [facility] Type 2 diabetes [facility] mellitus with [facility] complicat ion, with Drive long-term current use [place], [place] of insulin [id number] Social History Tobacco Use Types Packs/Day Years [...] Rojas MD [facility] Neurology [place], [place] [phone] (Wo rk) 06/29/2022 Appointment Cardiology Violetta Sanford M D [address] [place], [place] [address] (Oscar escobedo) 06/30/2022 Infusion Hematology and Oncology 07/14/2022 Infusion Hematology and Oncology 07/28/2022 Infusion Hematology and Oncology 08/11/2022 Infusion Hematology and Oncology 08/16/2022 Office Visit Audiology Mindy Moody AUD [facility] AUDIOLOGY DEPT [place], [place] [address] (Wo rk) 11/04/2022 Office Visit Rheumatology Dante Freedman PA [facility] RHEUMATOLOGY [place], [place] [address] (Wo rk) documented as of [...] athologist Signature TSH 2.37 0.27 - 4.20 [facility] mlU/ML [facility] Specimen Anatomical Collection Method Collection Time Receive d Time (Source) Location / / Volume Laterality Blood specimen 12/13/2017 9:48 AM 018 (specimen) EDT 10:03 AM EDT Resulting Agency Comment Spec In Lab Donell Hernandez MD CHEMISTRY ORDERABLES Performing Organization Address City/State/[place] [address] (ABNORMAL) Hemoglobin A1c (12/13/2017 9:48 AM EDT) Analysis Performed At Patho logist Time Signature Hemoglobin A1C 8.3 (H) 4.3 - 5.6 [facility] [...] Mellitus, Diabetes Care 2013; 36: Suppl. 1, M27-68 Est Avg Gluc 192 mg/dL JERE GARRISON [facility] Comment: eAG equivalents for HbA1c percentages: [...] into estimated average glucose values. ??Diabetes Care 2008:31(8):3224-5723. Specimen Anatomical Collection Method Collection Time Receive d Time (Source) Location / / Volume Laterality Blood specimen 12/13/2017 9:48 AM 018 (specimen) EDT 10:03 AM EDT Resulting Agency Comment Spec In Lab Donell Hernandez MD CHEMISTRY ORDERABLES Performing Organization Address City/State/ZIP [place] [address] documented in this encounter Visit Diagnoses Diagnosis Type 2 diabetes mellitus with complicati on, with long-term current use of insulin documented in this encounter Care Teams Professor Of Psychology Relationship Specialty Start Date End Date Violetta Sanford MD PCP - General 04/02/14 [address] [place] [address] documented as of this encounter
--- OUTSIDE RECORDS SUMMARY | 2022-06-16 12:28 | XMS_ITS | Encounter Summary ---
:1955 Author Organization [facility] [place] [address] Care Team Providers Name Role Phone Violetta Sanford MD Primary Care Provider Encounter Details Date Type Department Care Team Description 06/07/2017 Hospital [place] [phone] Social History Tobacco Use Types Packs/Day [...] Devices by 4 each 0 12/02/2015 Supply [facility].(Non-Drug; Combo MiscIndications: S/P Route) route daily. bilateral [...] Rojas MD [facility] Neurology [place], [place] [phone] (Wo rk) 06/29/2022 Appointment Cardiology Violetta Sanford M D [address] [place] [address] (Oscar escobedo) 06/30/2022 Infusion Hematology and Oncology 07/14/2022 Infusion Hematology and Oncology 07/28/2022 Infusion Hematology and Oncology 08/11/2022 Infusion Hematology and Oncology 08/16/2022 Office Visit Audiology Mindy Moody, WENDI [facility] AUDIOLOGY DEPT [place], [place] [address] (Wo rk) 11/04/2022 Office Visit Rheumatology Dante Freedman PA [facility] RHEUMATOLOGY [place], [place] [address] (Wo rk) documented as of this encounter Procedures Procedure Name Priority Date/Time Associated Diagnosis Comme nts TACROLIMUS LEVEL Routine 06/07/2017 11:00 AM Resu lts for this EST procedure are i n the results section. documented in this encounter Results Tacrolimus level (06/07/2017 11:00 AM EST) athologist Signature Tacrolimus Lvl 5.4 ng/mL [facility] Comment: Trough therapeutic: ??5-15 ng/mL Performed by ultra-performance liquid ch romatography tandem mass spectrometry (UPLCMS/MS). This test was developed and its performa nce characteristics determined by [facility]. It has not been cleared [...] Organization Address City/State/[place] [address] documented in this encounter Visit Diagnoses Not on filedocumented in this encounter Care Teams Concrete Form Setter And Finisher Relationship Specialty Start Date End Date Violetta Sanford MD PCP - General 04/02/14 [address] [place] [address] documented as of this encounter
--- OUTSIDE RECORDS SUMMARY | 2022-06-16 12:28 | XMS_ITS | Encounter Summary ---
:1955 [place] [address] Care Team Providers Name Role Phone Violetta Sanford MD Primary Care Provider Reason for Visit Reason Onset Date Comments Medication Refill 04/11/2018 Encounter Details Date Type Department Care Team Description 04/11/2018 Refill Solid Organ Transplant at [facility] lucinda Desir, Transplanted kidney [facility] [place] [address] TRANSPLANT SURGERY [phone] [place], [place] [address] (Wo rk) Social History Tobacco [...] and Cellcept. Telephone Encounter - Myla Jimenez [facility] - 04/11/2018 12:33 PM EDT Spoke to patient and he says he has been using Brand name Prograf and Brand name Cellcept. Also called Radha/Chacha and pharmacist confirms patient has been receiving [...] Rojas MD [facility] Neurology [place], [place] [phone] (Wo gregg) 06/29/2022 Appointment Cardiology Violetta Sanford M D [address] [place] [address] (Wo rk) 06/30/2022 Infusion Hematology and Oncology 07/14/2022 Infusion Hematology and Oncology 07/28/2022 Infusion Hematology and Oncology 08/11/2022 Infusion Hematology and Oncology 08/16/2022 Office Visit Audiology Mindy Moody AUD [facility] AUDIOLOGY DEPT [place], [place] [address] (Wo gregg) 11/04/2022 Office Visit Rheumatology Dante Freedman PA [facility] RHEUMATOLOGY [place], [place] [address] (Oscar escobedo) documented as of this encounter Visit Diagnoses Diagnosis Transplanted kidney Kidney replaced by transplant documented in this encounter Care Teams Roto Rooter Operator Relationship Specialty Start Date End Date Violetta Sanford MD PCP - General 04/02/14 [address] [place] [address] documented as of this encounter
--- OUTSIDE RECORDS SUMMARY | 2022-06-16 12:28 | XMS_ITS | Encounter Summary ---
:1955 Author Organization [facility] [place] [address] Care Team Providers Name Role Phone Violetta Sanford MD Primary Care Provider Reason for Visit Reason Onset Date Comments Medication Refill 02/13/2018 Encounter Details Date Type Department Care Team Description 02/13/2018 Refill Endocrinology at [facility] Donell Hernandez MD [facility] [place] [address] ENDOCRINOLOGY DEPT. [phone] [place], [place] [address] (Wo rk) Social History Tobacco [...] Neurology Tyler Rojas MD [facility] [address] [place], [place] [phone] (Wo rk) 06/29/2022 Appointment Cardiology Violetta Sanford M D [address] [place] [address] (Wo rk) 06/30/2022 Infusion Hematology and Oncology 07/14/2022 Infusion Hematology and Oncology 07/28/2022 Infusion Hematology and Oncology 08/11/2022 Infusion Hematology and Oncology 08/16/2022 Office Visit Audiology Mindy Moody AUD [facility] AUDIOLOGY [place], [place] [address] (Wo rk) 11/04/2022 Office Visit Rheumatology Dante Freedman, DA [facility] RHEUMATOLOGY [place], [place] [address] (Wo rk) documented as of this encounter Visit Diagnoses Not on filedocumented in this encounter Care Teams Retail Presentation Specialist Relationship Specialty Start Date End Date Violetta Sanford MD PCP - General 04/02/14 [address] [place] [address] documented as of this encounter
--- OUTSIDE RECORDS SUMMARY | 2022-06-16 12:28 | XMS_ITS | Encounter Summary ---
:1955 Author Organization [facility] [place] [address] Care Team Providers Name Role Phone Violetta Sanford MD Primary Care Provider Reason for Visit Reason Onset Date Comments Medication Refill 05/15/2018 Encounter Details Date Type Department Care Team Description 05/15/2018 Refill Solid Organ Transplant at Loraine Galvan [place] [address] Social History Tobacco Use Types Packs/Day Years [...] Tyler Rojas MD [facility] Neurology [place], [place] [phone] (Wo rk) 06/29/2022 Appointment Cardiology Violetta Sanford M D [address] [place] [address] (Wo rk) 06/30/2022 Infusion Hematology and Oncology 07/14/2022 Infusion Hematology and Oncology 07/28/2022 Infusion Hematology and Oncology 08/11/2022 Infusion Hematology and Oncology 08/16/2022 Office Visit Audiology Mindy Moody AUD [facility] AUDIOLOGY DEPT [place], [place] [address] (Wo rk) 11/04/2022 Office Visit Rheumatology Dante Freedman PA [facility] RHEUMATOLOGY [place], [place] [address] (Wo rk) documented as of this encounter Visit Diagnoses Diagnosis 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
--- OUTSIDE RECORDS SUMMARY | 2022-06-16 12:28 | XMS_ITS | Encounter Summary ---
:1955 Author Organization [facility] [place] [address] Care Team Providers Name Role Phone Violetta Sanford MD Primary Care Provider Reason for Visit Reason Onset Date Comments Medication Refill 01/11/2018 Encounter Details Date Type Department Care Team Description 01/11/2018 Refill Solid Organ Transplant Lynda Pyle, [place] [address] Social History Tobacco Use Types Packs/Day [...] mg BID to be called into the [facility] in [facility]. documented in this encounter Plan of Treatment Upcoming Encounters Date Type Specialty Care Team Description 06/16/2022 Infusion Hematology and Oncology 06/21/2022 Office Visit Neurology Tyler Rojas MD [facility] Neurology [place], [place] [phone] (Wo rk) 06/29/2022 Appointment Cardiology Violetta Sanford M D [address] [place], [place] [address] ( rk) 06/30/2022 Infusion Hematology and Oncology 07/14/2022 Infusion Hematology and Oncology 07/28/2022 Infusion Hematology and Oncology 08/11/2022 Infusion Hematology and Oncology 08/16/2022 Office Visit Audiology Mindy Moody AUD [facility] AUDIOLOGY [place], [place] [address] ( rk) 11/04/2022 Office Visit Rheumatology Dante Freedman, DA [facility] RHEUMATOLOGY [place], [place] [address] ([facility]) documented as of this encounter Visit Diagnoses Diagnosis Transplanted kidney Kidney replaced by transplant documented in this encounter Care Teams Editor Index Relationship Specialty Start Date End Date Violetta Sanford MD PCP - General 04/02/14 [address] [place], [place] [id number] documented as of this encounter
--- OUTSIDE RECORDS SUMMARY | 2022-06-16 12:28 | XMS_ITS | Encounter Summary ---
:1955 Author Organization [facility] [place] [address] Care Team Providers Name Role Phone Violetta Sanford MD Primary Care Provider Encounter Details Date Type Department Care Team Description 02/11/2017 Telephone Solid Organ Transplant [place] [address] Social History Tobacco Use Types Packs/Day [...] is ok to take generic mycophenolate. This telegraphic typewriter operator assured patient that mycophenolate is safe to take. Patient v/u documented in this encounter Plan of Treatment Upcoming Encounters Date Type Specialty Care Team Description 06/16/2022 Infusion Hematology and Oncology 06/21/2022 Office Visit Neurology Tyler Rojas MD [facility] Neurology [place], [place] [phone] (Wo rk) 06/29/2022 Appointment Cardiology Violetta Sanford M D [address] [place], [place] [address] (Wo rk) 06/30/2022 Infusion Hematology and Oncology 07/14/2022 Infusion Hematology and Oncology 07/28/2022 Infusion Hematology and Oncology 08/11/2022 Infusion Hematology and Oncology 08/16/2022 Office Visit Audiology Mindy Moody AUD [facility] [place]OLOGY [place], [place] [address] (Wo rk) 11/04/2022 Office Visit Rheumatology Dante Freedman PA [facility] RHEUMATOLOGY [place], [place] [address] (Wo rk) documented as of this encounter Visit Diagnoses Not on filedocumented in this encounter Care Teams Keeler Polygraph Operator Relationship Specialty Start Date End Date Violetta Sanford MD PCP - General 04/02/14 [address] [place], [place] [address] documented as of this encounter
--- OUTSIDE RECORDS SUMMARY | 2022-06-16 12:28 | XMS_ITS | Encounter Summary ---
:1955 Author Organization [facility] [address] Care Team Providers Name Role Phone Violetta Sanford MD Primary Care Provider Encounter Details Date Type Department Care Team Description 03/15/2018 Laboratory Appointment Lab 3L Sylvia Allison Kidney replaced by [facility] [id number] Social History Tobacco Use Types Packs/Day Years [...] Rojas MD [facility] Neurology [place] [phone] (Wo rk) 06/29/2022 Appointment Cardiology Violetta Sanford M D [facility] [address] [place], [place] [id number] (Wo rk) 06/30/2022 Infusion Hematology and Oncology 07/14/2022 Infusion Hematology and Oncology 07/28/2022 Infusion Hematology and Oncology 08/11/2022 Infusion Hematology and Oncology 08/16/2022 Office Visit Audiology Mindy Moody AUD [facility] AUDIOLOGY DEPT [place], [place] [address] (Wo rk) 11/04/2022 Office Visit Rheumatology Dante Freedman PA [facility] RHEUMATOLOGY [place], [place] [address] (Wo rk) documented as of [...] RBC UA 3 0 - 3 /HPF [facility] WBC UA 2 0 - 3 /HPF [facility] Squam Epith UA <1 <=4 /HPF [facility] Specimen (Source) Anatomical Collection Method Collection Time Re ceived Time Location / / Volume Laterality Urine specimen 03/15/2018 10:03 8 obtained by clean AM EDT 10:13 AM E DT catch procedure (specimen) Resulting Agency Comment Spec In Lab Alejo Garnett MD URINE ORDERABLES Performing Organization Address City/State/[place] [address] (ABNORMAL) Urinalysis with reflex Culture (03/15/2018 10:03 AM EDT) Patholo gist Method Time Signature Glucose UA 150 (A) Negative [facility] mg/dL [facility] Protein UA 30 (A) Negative [facility] mg/dL [facility] Bilirubin UA Negative Negative [facility] mg/dL [facility] Comment: Clinical correlation required for positi ve Urine Bilirubin results as false positive may occur with some drugs and d rug related products. If a false positive is suspected a serum total bili reyna should be considered if clinically indicated. Urobilinogen UA Normal Normal mg/dL [facility] pH UA 5.0 5.0 - 8.0 [facility] Blood UA Negative Negative mg/dL [facility] Ketones UA Negative Negative mg/dL [facility] Nitrite UA Negative Negative [facility] Leukocytes UA Negative Negative [facility] LABORATORY Appearance UA Clear Clear [facility] Spec [place] UA 1.015 1.002 - 1.030 [facility] Color UA Yellow Yellow [facility] Culture Reflexed No [facility] Specimen (Source) Anatomical Collection Method Collection Time Re ceived Time Location / / Volume Laterality Urine specimen 03/15/2018 10:03 8 obtained by clean AM EDT 10:13 AM E DT catch procedure (specimen) Resulting Agency Comment Spec In Lab Alejo Garnett MD URINE ORDERABLES Performing Organization Address City/State/[place] [address] (ABNORMAL) Protein/Creatinine Ratio, urine (03/15/2018 10:03 AM EDT) P athologist Signature U Creatinine 78 mg/dL [facility] U Protein Ran 37 (H) 0 - 12 [facility] mg/dL [facility] Prot/Cre Ratio 0.[address] [facility] Specimen Anatomical Collection Method Collection Time Receive d Time (Source) Location / / Volume Laterality Urine specimen 03/15/2018 10:03 8 (specimen) AM EDT 10:12 AM EDT Resulting Agency Comment Spec In Lab Alejo Garnett MD URINE ORDERABLES Performing Organization Address City/[facility]/ZIP Code Phon e Number [address] Phosphorus, urine, random (03/15/2018 10:03 AM EDT) P athologist Signature U Phosphorus 54.8 mg/dL [facility] Specimen Anatomical Collection Method Collection Time Receive d Time (Source) Location / / Volume Laterality Urine specimen 03/15/2018 10:03 8 (specimen) AM EDT 10:12 AM EDT Resulting Agency Comment Spec In Lab Alejo Garnett MD URINE ORDERABLES Performing Organization Address City/[facility]/[place] [address] BKV Quant Urine (03/15/2018 10:03 AM EDT) Component Value Ref Test Analysis Performed At Patholo gist Range Method Time Signature BKV Urine Not Detected SYLVIA Carlita [facility] BKV Urine BK Virus Urine Result Interpretation SYLVIA Ramirez [facility] Result: BK Virus not detected HOSPITAL Specimen type: urine LABORATOR Y Assay Range: 2.80-7.80 log copies/mL (6.28x10^2 - 6.28x10^7 copies/mL) Methods: Quantitative real-time polymerase chain react ion (PCR) of viral DNA isolated from urine was performed using [employer]formerly, [employer] BKV analyte-specific reagents and the [employer] Integration 500 FAST Real-Time PCR System. In addition, [...] ed Technology (CGAT) Laboratory at [facility] It has not been cleared or approved [...] Organization Address City/State/[place] [address] Creatinine, urine, random (03/15/2018 10:03 AM EDT) P athologist Signature U Creatinine 78 mg/dL [facility] Specimen Anatomical Collection Method Collection Time Receive d Time (Source) Location / / Volume Laterality Urine specimen 03/15/2018 10:03 8 (specimen) AM EDT 10:12 AM EDT Resulting Agency Comment Spec In Lab Alejo Garnett MD URINE ORDERABLES Performing Organization Address City/State/ZIP Code Phon e Number [address] Calcium Creatinine Ratio, random urine (03/15/2018 10:03 AM EDT) P athologist Signature U Calcium 2.6 mg/dL [facility] U Creatinine 78 mg/dL [facility] Ca/Cre Ratio 0.[address] [facility] Specimen Anatomical Collection Method Collection Time Receive d Time (Source) Location / / Volume Laterality Urine specimen 03/15/2018 10:03 8 (specimen) AM EDT 10:12 AM EDT Resulting Agency Comment Spec In Lab Alejo Garnett MD URINE ORDERABLES Performing Organization Address City/[facility]/ZIP Code Phon e Number [address] U24 Hrs and Volume (03/15/2018 9:45 AM EDT) P athologist Signature Hours 24 hour(s) [facility] LABORATORY Urine TV (ml) 2,[address] [facility] Specimen Anatomical Collection Method Collection Time Receive d Time (Source) Location / / Volume Laterality Urine specimen 03/15/2018 9:45 AM 018 (specimen) EDT 10:45 AM EDT Resulting Agency Comment Spec In Lab Alejo Garnett MD CHEMISTRY ORDERABLES Performing Organization Address City/State/ZIP Code Phon e Number [address] Uric acid, urine, 24 hour (03/15/2018 9:45 AM EDT) P athologist Signature U24 Uric Conc 18.2 mg/dL [facility] U24 Uric Calc 0.46 0.25 - [facility] 0.[address] [facility] gm/24hr [facility]ORY Specimen Anatomical Collection Method Collection Time Receive d Time (Source) Location / / Volume Laterality Urine specimen 03/15/2018 9:45 AM 018 (specimen) EDT 10:45 AM EDT Resulting Agency Comment Spec In Lab Alejo Garnett MD URINE ORDERABLES Performing Organization Address City/[facility]/[place] [address] (ABNORMAL) Protein, urine, 24 hour (03/15/2018 9:45 AM EDT) Analysis Performed At Patho logist Time Signature U24 Prot Conc 24 <=80 mg/dL [facility] U24 Prot Calc 0.60 (H) <=0.15 [facility]/24hr [facility] Specimen Anatomical Collection Method Collection Time Receive d Time (Source) Location / / Volume Laterality Urine specimen 03/15/2018 9:45 AM 018 (specimen) EDT 10:45 AM EDT Resulting Agency Comment Spec In Lab Alejo Garnett MD URINE ORDERABLES Performing Organization Address City/[facility]/[place] [address] Phosphorus, urine, 24 hour (03/15/2018 9:45 AM EDT) P athologist Signature U24 Phos Conc 52.8 mg/dL [facility] U24 Phos Calc 1.3 0.4 - 1.3 [facility] Specimen Anatomical Collection Method Collection Time Receive d Time (Source) Location / / Volume Laterality Urine specimen 03/15/2018 9:45 AM 018 (specimen) EDT 10:45 AM EDT Resulting Agency Comment Spec In Lab Alejo Garnett MD URINE ORDERABLES Performing Organization Address City/[facility]/[place] [address] (ABNORMAL) Creatinine, urine, 24 hour (03/15/2018 9:45 AM EDT) Analysis Performed At Patho logist Time Signature U24 Creat Conc 88 mg/dL [facility] U24 Creat Calc 2.20 (H) 0.80 - [facility] [address] LABORATORY Specimen Anatomical Collection Method Collection Time Receive d Time (Source) Location / / Volume Laterality Urine specimen 03/15/2018 9:45 AM 018 (specimen) EDT 10:45 AM EDT Resulting Agency Comment Spec In Lab Alejo Garnett MD URINE ORDERABLES Performing Organization Address City/State/[place] [address] (ABNORMAL) Creatinine Clearance, urine, 24 hour (03/15/2018 9:45 AM EDT) Analysis Performed At Patho logist Time Signature Creat 80 (L) 90 - 139 [facility] Clearance mL/min [facility] U24 Creat Conc 88 mg/dL [facility] U24 Creat Calc 2.20 (H) 0.80 - [facility] 1.[address] LABORATORY Specimen Anatomical Collection Method Collection Time Receive d Time (Source) Location / / Volume Laterality Urine specimen 03/15/2018 9:45 AM 018 (specimen) EDT 10:45 AM EDT Resulting Agency Comment Spec In Lab Alejo Garnett MD URINE ORDERABLES Performing Organization Address City/[facility]/[place] [address] (ABNORMAL) Calcium, urine, 24 hour (03/15/2018 9:45 AM EDT) P athologist Signature U24 Ca Conc 1.2 mg/dL [facility] U24 Ca Calc 30.0 (L) 50.0 - [facility] 300.[address] [facility] [address] LABORATORY Comment: Reference Range: 50.0-300.0 mg/ 24 hour based on diet. Specimen Anatomical Collection Method Collection Time Receive d Time (Source) Location / / Volume Laterality Urine specimen 03/15/2018 9:45 AM 018 (specimen) EDT 10:45 AM EDT Resulting Agency Comment Spec In Lab Alejo Garnett MD URINE ORDERABLES Performing Organization Address City/State/[place] [address] Differential, Automated (03/15/2018 9:40 AM EDT) P athologist Signature Neutrophils % 59.2 % [facility] Neutr Abs (ANC) 4.21 1.70 - [facility] 6.[address] [facility] x10(3)/[facility] LABORATORY Lymphocytes % 27.5 % [facility] Lymphocytes Abs 2.0 0.9 - 3.2 [facility] x10(3)/[facility] LABORATORY Monocytes % 9.0 % [facility] Monocyte Abs 0.6 0.3 - 0.9 [facility] x10(3)/[facility] LABORATORY Eosinophils % 3.2 % [facility] Eosinophils Abs 0.2 0.0 - 0.4 [facility] x10(3)/[facility] LABORATORY Basophils % 1.0 % [facility] Basophils Abs 0.1 0.0 - 0.1 [facility] x10(3)/[facility] LABORATORY Immature Gran % 0.10 % [facility] Comment: Immature granulocytes(IG's)percentage an d absolute count will include metamyelocytes, myelocytes, and promyelo cytes. Blood smears from CBCs yielding IG's will be scanned manually for concor dance. If this scan disagrees with the automated IG or if promyelocytes are not ed, a manual differential will be performed. Courtney Gran Abs 0.01 0.00 - 0.04 x10(3)/Health system [facility] LAB[facility]ATORY Specimen Anatomical Collection Method Collection Time Receive d Time (Source) Location / / Volume Laterality Blood specimen 03/15/2018 9:40 AM 018 9:49 (specimen) EDT AM EDT Resulting Agency Comment Spec In Lab Alejo Garnett MD HEMATOLOGY ORDERABLES Performing Organization Address City/State/[place] [address] (ABNORMAL) Hemogram (03/15/2018 9:40 AM EDT) Analysis Performed At Patho logist Time Signature WBC 7.1 4.0 - 9.5 [facility] x10(3)/[facility] LABORATORY RBC 3.89 (L) 4.58 - [facility] 5.[address] [facility] x10(6)/[facility] LABORATORY Hemoglobin 11.9 (L) 13.7 - [facility] 16.5 gm/dL [facility] Hematocrit 38.0 (L) 40.5 - [facility] 48.5 % [facility] MCV 97.7 (H) 82.9 - [facility] 93.1 [facility] LABORATORY MCH 30.6 27.5 - [facility] 32.1 pg [facility] MCHC 31.3 (L) 32.0 - [facility] 35.7 gm/dL [facility] Platelets 170 145 - 357 [facility] x10(3)/[facility] LABORATORY RDWSD 49.8 (H) 36.0 - [facility] 45.0 [facility] LABORATORY RDWCV 13.9 (H) 11.4 - [facility] 13.8 % [facility] MPV 8.6 7.6 - 12.9 [facility] LABORATORY nRBC % Auto 0.0 % [facility] nRBC Abs Auto 0.000 0.000 - [facility] 0.[address] [facility] x10(3)/[facility] LABORATORY Specimen Anatomical Collection Method Collection Time Receive d Time (Source) Location / / Volume Laterality Blood specimen 03/15/2018 9:40 AM 018 9:49 (specimen) EDT AM EDT Resulting Agency Comment Spec In Lab Alejo Garnett MD HEMATOLOGY ORDERABLES Performing Organization Address City/State/[place] [address] Gold Tube HOLD (03/15/2018 9:40 AM EDT) P athologist Signature Gold Hold Sample in [facility] lab. [facility] Specimen Anatomical Collection Method Collection Time Receive d Time (Source) Location / / Volume Laterality Blood specimen 03/15/2018 9:40 AM 018 9:49 (specimen) EDT AM EDT Alejo Garnett MD CHEMISTRY ORDERABLES Performing Organization Address City/State/ZIP Code Phon e Number [address] Lavender Tube HOLD (03/15/2018 9:40 AM EDT) Patholo gist Method Time Signature Lavender Hold Sample in [facility] lab. [facility] Specimen Anatomical Collection Method Collection Time Receive d Time (Source) Location / / Volume Laterality Blood specimen 03/15/2018 9:40 AM 018 9:49 (specimen) EDT AM EDT Alejo Garnett MD HEMATOLOGY ORDERABLES Performing Organization Address City/[facility]/ZIP Code Phon e Number [address] (ABNORMAL) Vitamin D, 25-Hydroxy (03/15/2018 9:40 AM EDT) athologist Signature 25-OH Vit D 24 (L) 30 - 100 [facility] Total ng/mL [facility] Comment: Deficient <10 ng/mL Insufficient 10 to 29 ng/mL Sufficient 30 to 100 ng/mL Potential Intoxication >100 ng/mL According to the [place] National Osteoporosi s Foundation, Vitamin D concentrations >30 ng/mL are sufficient to protect bone health. ??The National Kidney Foundation has similarly stated that pat ients with Vitamin D concentrations <30ng/mL should be considered to be insu fficient or deficient. http://[employer]/nkf-guidelines http://[employer]/nejm-VitD The [employer] Vitamin D Immunoassay detec [...] Garnett MD CHEMISTRY ORDERABLES Performing Organization Address City/[facility]/ZIP Code Phon e Number [address] Uric acid (03/15/2018 9:40 AM EDT) P athologist Signature Uric Acid 7.8 3.5 - 8.5 [facility] mg/dL [facility] Specimen Anatomical Collection Method Collection Time Receive d Time (Source) Location / / Volume Laterality Blood specimen 03/15/2018 9:40 AM 018 9:49 (specimen) EDT AM EDT Resulting Agency Comment Spec In Lab Alejo Garnett MD CHEMISTRY ORDERABLES Performing Organization Address City/[facility] [place] [address] Tacrolimus level (03/15/2018 9:40 AM EDT) athologist [facility] Tacrolimus Lvl 7.0 ng/mL [facility] Comment: Trough therapeutic: ??5-15 ng/mL Performed by ultra-performance liquid ch romatography tandem mass spectrometry (UPLCMS/MS). This test was developed and its performa nce characteristics determined by [facility]. It has not been cleared [...] Garnett MD CHEMISTRY ORDERABLES Performing Organization Address City/[facility] [place] [address] (ABNORMAL) Reticulocyte Count (03/15/2018 9:40 AM EDT) Patholo gist Method Time Signature Retic Ct % 3.0 (H) 0.7 - 2.6 [facility] % [facility] Retic Ct Abs 0.120 0.030 - [facility] 0.[address] [facility] x10(6)/[facility] LABORATORY Immature Retic% 21.8 (H) 0.0 - [facility] 15.6 % [facility] Reticulated Hgb 32.4 31.3 - [facility] 40.2 pg [facility] Specimen Anatomical Collection Method Collection Time Receive d Time (Source) Location / / Volume Laterality Blood specimen 03/15/2018 9:40 AM 018 9:49 (specimen) EDT AM EDT Resulting Agency Comment Spec In Lab Alejo Garnett MD HEMATOLOGY ORDERABLES Performing Organization Address City/[facility]/ZIP Code Phon e Number [address] (ABNORMAL) PTH (03/15/2018 9:40 AM EDT) P athologist Signature PTH 79 (H) 15 - 65 [facility] pg/mL [facility] Specimen Anatomical Collection Method Collection Time Receive d Time (Source) Location / / Volume Laterality Blood specimen 03/15/2018 9:40 AM 018 9:49 (specimen) EDT AM EDT Resulting Agency Comment Spec In Lab Alejo Garnett MD CHEMISTRY ORDERABLES Performing Organization Address City/[facility]/[place] [address] Phosphorus (03/15/2018 9:40 AM EDT) P athologist Signature Phosphorus 3.4 2.5 - 4.5 [facility] mg/dL [facility] Specimen Anatomical Collection Method Collection Time Receive d Time (Source) Location / / Volume Laterality Blood specimen 03/15/2018 9:40 AM 018 9:49 (specimen) EDT AM EDT Resulting Agency Comment Spec In Lab Alejo Garnett MD CHEMISTRY ORDERABLES Performing Organization Address City/[facility]/[place] [address] (ABNORMAL) Magnesium (03/15/2018 9:40 AM EDT) P athologist Signature Magnesium 0.59 (L) 0.69 - 1.07 [facility] mmol/L [facility] Specimen Anatomical Collection Method Collection Time Receive d Time (Source) Location / / Volume Laterality Blood specimen 03/15/2018 9:40 AM 018 9:49 (specimen) EDT AM EDT Resulting Agency Comment Spec In Lab Alejo Garnett MD CHEMISTRY ORDERABLES Performing Organization Address City/State/Z[place] [address] Lipid Panel (03/15/2018 9:40 AM EDT) P athologist Signature Chol, Total 96 mg/dL [facility] Comment: Lower Risk: <200 mg/dL Average Risk: 200-239 mg/dL Higher Risk: >od=369 mg/dL Triglycerides 235 mg/dL [facility] Comment: Average Risk/Lower Risk: <150 mg/dL Borderline High Risk: 150-199 mg/dL High Risk: 200-499 mg/dL Very High Risk: >ds=376 mg/dL HDL 22 mg/dL [facility] Comment: Males: ?? Higher Risk: <40 mg/dL Females: ?? HIgher Risk: <50 mg/dL LDL Cholesterol 27 mg/dL [facility] Comment: Lowest Risk: <100 mg/dL Lower Risk: 100-129 mg/dL Borderline High Risk: 130-159 mg/dL High Risk: 160-189 mg/dL Very High Risk: >ul=876 mg/dL Chol/HDL Ratio 4.[address] [facility] Lipid Interpretation See Note [facility] Comment: Lipid management should be guided by a p atient? s ASCVD risk, goals and preferences. ACC/AHA Guidelines recommend high intens ity statin if clinical ASCVD or LDL greater than or equal to 190 mg/dL. http://LEAD Therapeuticsurl.com/HYB-HWS-Xovwpwufx Adults aged 40-75 with LDL 70-189 mg/dL should have their 10 year ASCVD risk estimated with the ACC/AHA ASCVD risk es timator http://tools.acc.org/AHFFK-Fqmt-Lepqgqxv r/ Statin should be discussed if risk [...] Organization Address City/State/[place] [address] (ABNORMAL) Hemoglobin A1c (03/15/2018 9:40 AM EDT) Analysis Performed At Patho logist Time Signature Hemoglobin A1C 8.8 (H) 4.3 - 5.6 [facility] [...] Mellitus, Diabetes Care 2013; 36: Suppl. 1, U67-07 Est Avg Gluc 206 mg/dL [facility] Comment: eAG equivalents for HbA1c percentages: HbA1c(%) ?eAG(mg/dL) 6.0 ?126 6.5 ?140 7.0 ?154 7.5 ?169 8.0 ?183 8.5 ?197 9.0 ?212 9.5 ?226 10.0 ? 240 Limitations: The eAG calculation has not been validated on women, individuals below 18 years old and above 70 years old, and individuals with hemoglobinopathies. Additional resources are available on [facility] ADA website. Scooby MALDONADO, Nba J, Sydnee R, et al. ??Tr anslating the A1C assay into estimated average glucose values. ??Diabetes Care 2008:31(8):7128-9273. Specimen Anatomical Collection Method Collection Time Receive d Time (Source) Location / / Volume Laterality Blood specimen 03/15/2018 9:40 AM 018 9:49 (specimen) EDT AM EDT Resulting Agency Comment Spec In Lab Alejo Garnett MD CHEMISTRY ORDERABLES Performing Organization Address City/State/[place] [address] (ABNORMAL) CMP w/fasting Glucose (03/15/2018 9:40 AM EDT) athologist Signature Glucose 248 (H) 65 - 99 [facility] Fasting mg/dL [facility] Comment: ?Fasting* Glucose Interpretive C riteria [...] of Diabetes Mellitus, Position Statement from the [place] Diabetes Association. ??Diabete s Care, Volume 33, Supplement 1, Jul 2009 BUN 30 (H) 10 - 20 mg/dL [facility] Creatinine 1.90 (H) 0.80 - 1.50 mg/dL [facility] Sodium 139 135 - 145 mmol/L [facility] Potassium 4.9 3.5 - 5.0 mmol/L [facility] Comment: Please note: ??Patients with WBC >100,00 0 may have falsely elevated Potassium levels. ??For accurate Potassium quantif ication in these patients send serum separator tube (gold top) for subsequent determinations. ??Contact the Clinical Chemistry Laboratory if there are any qu estions. Chloride 107 98 - 107 mmol/L [facility] CO2 21 (L) 22 - 31 mmol/L [facility] Anion Gap 11 5 - 15 mmol/L [facility] Calcium 9.2 8.5 - 10.5 mg/dL [facility] Total Protein 8.0 6.1 - 8.0 gm/dL [facility] Albumin 3.5 3.2 - 5.2 gm/dL [facility] AST 22 0 - 39 unit/L [facility] ALT 25 0 - 55 unit/L [facility] Alk Phos 153 (H) 40 - 120 unit/L [facility] Total Bilirubin 0.5 0.2 - 1.3 mg/dL [facility] Estimated GFR 36 (L) >=60 mL/min/1.73 m?? [facility] Comment: The eGFR was calculated using the CKD-EP I equation. As with all creatinine based estimates of kidney function, eGFR values calculated with the CKD-EPI equation are not accurate in patients wi th acute kidney failure, extremes of body mass or the acutely ill. [email or web address]://[employer]/[facility]ONG[facility]kf eGFR 42 (L) >=60 mL/min/1.73 m?? [facility] Comment: The eGFR was calculated using the CKD-EP I equation. As with all creatinine based estimates of kidney function, eGFR values calculated with the CKD-EPI equation are not accurate in patients wi th acute kidney failure, extremes of body mass or the acutely ill. http://[employer]/[email or web address] Specimen Anatomical Collection Method Collection Time Receive d Time (Source) Location / / Volume Laterality Blood specimen 03/15/2018 9:40 AM 018 9:49 (specimen) EDT AM EDT Resulting Agency Comment Spec In Lab Alejo Garnett MD CHEMISTRY ORDERABLES Performing Organization Address City/[facility]/[place] [address] 1,25-dihydroxycholecalciferol (03/15/2018 9:40 AM EDT) athologist Signature Vit D 18 [facility] Comment: ADDITIONAL INFORMATIO N This test was developed and its performa nce characteristics determined by [facility] in a manner co nsistent with CLIA requirements. This test has not been carlos ared or approved by the U.S. Food and Drug Administration. Test Performed by: [facility] [address] [id number] Specimen Anatomical Collection Method Collection Time Receive d Time (Source) Location / / Volume Laterality Blood specimen 03/15/2018 9:40 AM 018 (specimen) EDT 11:16 AM EDT Resulting Agency Comment Spec In Lab Alejo Garnett MD CHEMISTRY ORDERABLES Performing Organization Address City/[facility]/[place] [address] documented in this encounter Visit Diagnoses Diagnosis Kidney replaced by transplant documented in this encounter Care Teams Trim Mounter Relationship Specialty Start Date End Date Viloetta Sanford MD PCP - General 04/02/14 [address] [place] [address] documented as of this encounter
--- OUTSIDE RECORDS SUMMARY | 2022-06-16 12:28 | XMS_ITS | Encounter Summary ---
:1955 Author Organization [facility] [place] [address] Care Team Providers Name Role Phone Violetta Sanford MD Primary Care Provider Reason for Visit Reason Comments Diabetes Patient is here today for a 6 month follow up. Encounter Details Date Type Department Care Team Description 12/13/2017 Office Visit Endocrinology at [facility] Donell Hernandez, Vitamin D deficiency; [facility] Type 2 diabetes mellitus with complicati on, with long-term current use of insulin; [facility] Adult BMI 37.0-37.9 kg/sq m; [place] [address] [place] [address] CKD (chronic kidney disease) stage 3, GF R 30-59 ml/min; [phone] ENDOCRINOLOGY S/P bilateral BKA (below knee amputation); DEPT. History of renal transplant [place], [place] [address] Social History Tobacco Use Types [...] kg (312 lb) 12/13/2017 11:13 AM Patient re ports EDT Height 193 cm (6' 4) 12/13/2017 [...] last Cr: today last lipid panel:2011 regular beverage host:no special shoes:no flu shot :yes pneumovax: 2011 [...] 1/2 Needle 1 Device by [facility]Non- Drug; Combo Route) route 3 times daily. [...] 90 capsule 3 ??? OXYGEN-AIR DELIVERY SYSTEMS (HORIZON NASAL CPAP SYSTEM [facility]) Inhale into the lungs nightly. ??? albuterol [...] 1 ??? Miscellaneous Medical Supply [facility] 4 Devices by [facility]Non-Drug; Combo Route) route daily. Rubber sheath for [...] fitted for because of problems with the jail officer device. He hopes to be more active [...] Neurology Tyler Rojas MD [facility] Neurology [place], [place] [phone] (Oscar escobedo) 06/29/2022 Appointment Cardiology Violetta Sanford M D [address] [address] (Wo rk) 06/30/2022 Infusion Hematology and Oncology 07/14/2022 Infusion Hematology and Oncology 07/28/2022 Infusion Hematology and Oncology 08/11/2022 Infusion Hematology and Oncology 08/16/2022 Office Visit Audiology Mindy Moody [facility] AUDIOLOG[facility] DEPT [place], [place] [address] (Wo rk) 11/04/2022 Office Visit Rheumatology Dante Freedman PA [facility] ER RHEUMATOLOGY [place], [place] [address] (Wo rk) documented as of this encounter Results (ABNORMAL) Creatinine (06/21/2018 9:27 AM EST) Analysis Performed At [facility] Time Signature Creatinine 1.82 (H) 0.80 - [facility] 1.50 mg/dL [facility] Estimated GFR 38 (L) >=60 [facility] mL/min/1.7 [facility] 3 [facility] Comment: The eGFR was calculated using the CKD-EP I equation. As with all creatinine based estimates of kidney function, eGFR values calculated with the CKD-EPI equation are not accurate in patients wi th acute kidney failure, extremes of body mass or the acutely ill. [email or web address]ULSAnkf eGFR 44 (L) >=60 mL/min/1.73 m?? [facility] Comment: The eGFR was calculated using the CKD-EP I equation. As with all creatinine based estimates of kidney function, eGFR values calculated with the CKD-EPI equation are not accurate in patients wi th acute kidney failure, extremes of body mass or the acutely ill. [email or web address]kf Specimen Anatomical Collection Method Collection Time Receive d Time (Source) Location / / Volume Laterality Blood specimen 06/21/2018 9:27 AM 018 9:37 (specimen) EST AM EST Resulting Agency Comment Spec In Lab Donell Hernandez MD CHEMISTRY ORDERABLES Performing Organization Address City/State/[place] [address] (ABNORMAL) Hemoglobin A1c (06/21/2018 9:27 AM EST) Analysis Performed At Patho logist Time Signature Hemoglobin A1C 8.2 (H) 4.3 - 5.6 [facility] [...] Mellitus, Diabetes Care 2013; 36: Suppl. 1, Q47-23 Est Avg Gluc 189 mg/dL [facility] Comment: eAG equivalents for HbA1c percentages: HbA1c(%) ?eAG(mg/dL) 6.0 ?126 6.5 ?140 7.0 ?154 7.5 ?169 8.0 ?183 8.5 ?197 9.0 ?212 9.5 ?226 10.0 ? 240 Limitations: The eAG calculation has not been validated on women, individuals below 18 years old and above 70 years old, and individuals with hemoglobinopathies. Additional resources are available on [facility] ADA website. Scooby MALDONADO, Nba J, Sydnee R, et al. ??Tr anslating the A1C assay into estimated average glucose values. ??Diabetes Care 2008:31(8):5625-4653. Specimen Anatomical Collection Method Collection Time Receive d Time (Source) Location / / Volume Laterality Blood specimen 06/21/2018 9:27 AM 018 9:37 (specimen) EST AM EST Resulting Agency Comment Spec In Lab Donell Hernandez MD CHEMISTRY ORDERABLES Performing Organization Address City/State/[place] [address] documented in this encounter [...] transplant documented in this encounter Care Teams Bilingual Executive Assistant Relationship Specialty Start Date End Date Violetta Sanford MD PCP - General 04/02/14 [address] [place] [address] documented as of this encounter
--- OUTSIDE RECORDS SUMMARY | 2022-06-16 12:28 | XMS_ITS | Encounter Summary ---
:1955 Author Organization [facility] [place] [address] Care Team Providers Name Role Phone Violetta Sanford MD Primary Care Provider Encounter Details Date Type Department Care Team Description 02/28/2017 Laboratory Appointment Lab 3L Jere Allison Kidney replaced by [facility] [place] [phone] Social History Tobacco Use Types Packs/Day Years [...] Rojas MD [facility] Neurology [place] [phone] (Wo rk) 06/29/2022 Appointment Cardiology Violetta Sanford M D [facility] [address] [place], [place] [address] (Wo rk) 06/30/2022 Infusion Hematology and Oncology 07/14/2022 Infusion Hematology and Oncology 07/28/2022 Infusion Hematology and Oncology 08/11/2022 Infusion Hematology and Oncology 08/16/2022 Office Visit Audiology Mindy Moody AUD [facility] AUDIOLOGY DEPT [place], [place] [address] (Wo rk) 11/04/2022 Office Visit Rheumatology Dante Freedman PA [facility] RHEUMATOLOGY [place], [place] [address] (Wo rk) documented as [...] with reflex Culture (02/28/2017 10:13 AM EDT) [facility] Method Time Signature Glucose UA >=500 Negative [facility] (Critical) mg/dL [facility]OR[facility] Comment: Urinalysis result NOT critical without a combination of Glucose greater than or equal to 500mg/dl AND Ketones greater th an or equal to 80mg/dl. Protein UA 30 (A) Negative mg/dL [facility]OR[facility] Bilirubin UA Negative Negative mg/dL [facility] Comment: Clinical correlation required for positi ve Urine Bilirubin results as false positive may occur with some drugs and d rug related products. If a false positive is suspected a serum total bili reyna should be considered if clinically indicated. Urobilinogen UA Normal Normal mg/dL [facility] pH UA 5.0 5.0 - 8.0 [facility] Blood UA Negative Negative mg/dL [facility] Ketones UA Negative Negative mg/dL [facility] Nitrite UA Negative Negative [facility] Leukocytes UA Negative Negative [facility] LABORATORY Appearance UA Clear Clear [facility] Spec [place] UA 1.013 1.002 - 1.030 [facility] Color UA Yellow Yellow [facility] RBC UA 1 0 - 3 /HPF [facility] WBC UA 1 0 - 3 /HPF [facility] Squam Epith UA <1 <=4 /HPF [facility] Culture Reflexed No [facility] Specimen (Source) Anatomical Collection Method Collection Time Re ceived Time Location / / Volume Laterality Urine specimen 02/28/2017 10:13 7 obtained by clean AM EDT 10:23 AM E DT catch procedure (specimen) Resulting Agency Comment Spec In Lab Alejo Garnett MD URINE ORDERABLES Performing Organization Address City/[facility]/ZIP [facility] Phon e Number [address] (ABNORMAL) Protein/Creatinine Ratio, urine (02/28/2017 10:13 AM EDT) athologist Signature U Creatinine 89 mg/dL [facility]OR[facility] U Protein Ran 35 (H) 0 - 12 [facility] mg/dL [facility] Prot/Cre Ratio 0.4 ratio [facility] Specimen Anatomical Collection Method Collection Time Receive d Time (Source) Location / / Volume Laterality Urine specimen 02/28/2017 10:13 7 (specimen) AM EDT 10:23 AM EDT Resulting Agency Comment Spec In Lab Alejo Garnett MD URINE ORDERABLES Performing Organization Address City/[facility]/[place] [address] Differential, Automated (02/28/2017 10:05 AM EDT) P athologist Signature Neutrophils % 58.8 % [facility] Neutr Abs (ANC) 4.20 1.70 - [facility] 6.10 [facility] x10(3)/[facility] LABORATORY Lymphocytes % 27.5 % [facility] LABOR[facility]ORY Lymphocytes Abs 2.0 0.9 - 3.2 [facility] x10(3)/[facility] LABORATORY Monocytes % 8.8 % [facility]ORY Monocyte Abs 0.6 0.3 - 0.9 [facility] x10(3)/[facility] LABORATORY Eosinophils % 3.5 % [facility] Eosinophils Abs 0.2 0.0 - 0.4 [facility] x10(3)/[facility] LABORATORY Basophils % 0.8 % [facility] LABOR[facility]ORY Basophils Abs 0.1 0.0 - 0.1 [facility] x10(3)/[facility] LABORATORY Immature Gran % 0.60 % [facility] Comment: Immature granulocytes(IG's)percentage an d absolute count will include metamyelocytes, myelocytes, and promyelo cytes. Blood smears from CBCs yielding IG's will be scanned manually for concor dance. If this scan disagrees with the automated IG or if promyelocytes are not ed, a manual differential will be performed. Courtney Gran Abs 0.04 0.00 - 0.04 x10(3)/[facility] MAR Y [facility] LABORATORY Specimen Anatomical Collection Method Collection Time Receive d Time (Source) Location / / Volume Laterality Blood specimen 02/28/2017 10:05 7 (specimen) AM EDT 10:13 AM EDT Resulting Agency Comment Spec In Lab Alejo Garnett MD HEMATOLOGY ORDERABLES Performing Organization Address City/State/ZIP Code Phon e Number [place] [phone]OS[address] (ABNORMAL) Hemogram (02/28/2017 10:05 AM EDT) Analysis Performed At Patho logist Time Signature WBC 7.1 4.0 - 9.5 [facility] x10(3)/[facility] LABORATORY RBC 4.05 (L) 4.58 - [facility] 5.54 [facility] x10(6)/[facility] LABORATORY Hemoglobin 12.5 (L) 13.7 - [facility] 16.5 gm/dL [facility] Hematocrit 38.7 (L) 40.5 - [facility] 48.5 % [facility] MCV 95.6 (H) 82.9 - [facility] 93.1 fL [facility] MCH 30.9 27.5 - [facility] 32.1 pg [facility] LABOR[facility] MCHC 32.3 32.0 - [facility] 35.7 gm/dL [facility] Platelets 182 145 - 357 [facility] x10(3)/[facility] LABORATORY RDWSD 48.3 (H) 36.0 - [facility] 45.0 [facility] LABORATORY RDWCV 13.9 (H) 11.4 - [facility] 13.8 % [facility] LABORATORY MPV 8.9 7.6 - 12.9 [facility] LABORATORY nRBC % Auto 0.0 % [facility] LABOR[facility]ORY nRBC Abs Auto 0.000 0.000 - [facility] 0.000 [facility] x10(3)/[facility] LABORATORY Specimen Anatomical Collection Method Collection Time Receive d Time (Source) Location / / Volume Laterality Blood specimen 02/28/2017 10:05 7 (specimen) AM EDT 10:13 AM EDT Resulting Agency Comment Spec In Lab Alejo Garnett MD HEMATOLOGY ORDERABLES Performing Organization Address City/State/ZIP Code Phon e Number [address] Gold Tube HOLD (02/28/2017 10:05 AM EDT) P athologist Signature Gold Hold Sample in [facility] Specimen Anatomical Collection Method Collection Time Receive d Time (Source) Location / / Volume Laterality Blood specimen 02/28/2017 10:05 7 (specimen) AM EDT 10:13 AM EDT Alejo Garnett MD CHEMISTRY ORDERABLES Performing Organization Address City/State/ZIP Code Phon e Number [address] Lavender Tube HOLD (02/28/2017 10:05 AM EDT) Patholo gist Method Time Signature Lavender Hold Sample in [facility] LABORATORY Specimen Anatomical Collection Method Collection Time Receive d Time (Source) Location / / Volume Laterality Blood specimen 02/28/2017 10:05 7 (specimen) AM EDT 10:13 AM EDT Alejo Granett MD HEMATOLOGY ORDERABLES Performing Organization Address City/[facility]/ZIP Code Phon e Number [address] (ABNORMAL) Uric acid (02/28/2017 10:05 AM EDT) P athologist Signature Uric Acid 9.1 (H) 3.5 - 8.5 [facility] mg/dL [facility] Specimen Anatomical Collection Method Collection Time Receive d Time (Source) Location / / Volume Laterality Blood specimen 02/28/2017 10:05 201 7 (specimen) AM EDT 10:13 AM EDT Resulting Agency Comment Spec In Lab Alejo Garnett MD CHEMISTRY ORDERABLES Performing Organization Address City/[facility] Code Phon e Number [address] Tacrolimus level (02/28/2017 10:05 AM EDT) athologist [facility] Tacrolimus Lvl 5.9 ng/mL [facility] LABOR[facility]ORY Comment: Trough therapeutic: ??5-15 ng/mL Performed by ultra-performance liquid ch romatography tandem mass spectrometry (UPLCMS/MS). This test was developed and its performa nce characteristics determined by [facility]. It has not been cleared or [...] Garnett MD CHEMISTRY ORDERABLES Performing Organization Address City/[facility]/[place] [address] (ABNORMAL) Reticulocyte Count (02/28/2017 10:05 AM EDT) Patholo gist Method Time Signature Retic Ct % 3.4 (H) 0.7 - 2.6 [facility] LABORATORY Retic Ct Abs 0.140 (H) 0.030 - JERE GARRISON 0.120 [facility] x10(6)/[facility] L LABORATORY Immature Retic% 21.7 (H) 0.0 - [place] [place] 15.6 % [facility] LABORATORY Reticulated Hgb 33.9 31.3 - [facility] 40.2 pg [facility]ORATORY Specimen Anatomical Collection Method Collection Time Receive d Time (Source) Location / / Volume Laterality Blood specimen 02/28/2017 10:05 7 (specimen) AM EDT 10:13 AM EDT Resulting Agency Comment Spec In Lab Alejo Garnett MD HEMATOLOGY ORDERABLES Performing Organization Address City/[facility]/ZIP Code Phon e Number [address] Phosphorus (02/28/2017 10:05 AM EDT) P athologist Signature Phosphorus 3.2 2.5 - 4.5 [facility] mg/dL [facility]ORY Specimen Anatomical Collection Method Collection Time Receive d Time (Source) Location / / Volume Laterality Blood specimen 02/28/2017 10:05 7 (specimen) AM EDT 10:13 AM EDT Resulting Agency Comment Spec In Lab Alejo Garnett MD CHEMISTRY ORDERABLES Performing Organization Address City/[facility]/[place] [address] Magnesium (02/28/2017 10:05 AM EDT) P athologist Signature Magnesium 0.72 0.69 - 1.07 [facility] [place] mmol/L [facility]OR[facility]ORY Specimen Anatomical Collection Method Collection Time Receive d Time (Source) Location / / Volume Laterality Blood specimen 02/28/2017 10:05 7 (specimen) AM EDT 10:13 AM EDT Resulting Agency Comment Spec In Lab Alejo Garnett MD CHEMISTRY ORDERABLES Performing Organization Address City/[facility]/[place] [address] (ABNORMAL) Comprehensive metabolic panel (non-fasting) (02/28/2017 10:05 AM EDT) P athologist Signature Glucose Lvl 305 (H) 65 - 199 [facility] mg/dL [facility] Comment: Diabetes: >=200 mg/dL plus symp toms BUN 32 (H) 10 - 20 mg/dL [facility] Creatinine 1.91 (H) 0.80 - 1.50 mg/dL [facility] Comment: Please note that the pediatric reference intervals supplied above were not validated at [facility]. Results from pediatri c patients should be interpreted in conjunction to the patient's age, height and muscle mass. Sodium 137 135 - 145 mmol/L [facility] Potassium 4.9 3.5 - 5.0 mmol/L [facility] Comment: Please note: ??Patients with WBC >100,00 0 may have falsely elevated Potassium levels. ??For accurate Potassium quantif ication in these patients send serum separator tube (gold top) for subsequent determinations. ??Contact the Clinical Chemistry Laboratory if there are any qu estions. Chloride 102 98 - 107 mmol/L [facility] CO2 22 22 - 31 mmol/L [facility] Anion Gap 13 5 - 15 mmol/L [facility] Calcium 9.6 8.5 - 10.5 mg/dL [facility] Total Protein 8.0 6.1 - 8.0 gm/dL [facility] Albumin 3.4 3.2 - 5.2 gm/dL [facility] AST 16 0 - 39 unit/L [facility] ALT 21 0 - 55 unit/L [facility] Alk Phos 146 (H) 40 - 120 unit/L [facility] Total Bilirubin 0.5 0.2 - 1.3 mg/dL [facility] LABOR[facility]ORY Estimated GFR 36 (L) >=60 [facility] Comment: [...] the following links into your internet browser. [email or web address] [email or web address] Specimen Anatomical Collection Method Collection Time Receive d Time (Source) Location / / Volume Laterality Blood specimen 02/28/2017 10: 7 (specimen) AM EDT 10:13 AM EDT Resulting Agency Comment Spec In Lab Alejo Garnett MD CHEMISTRY ORDERABLES Performing Organization Address City/State/ZIP Code Phon e Number [place] [phone]OS[address] LAB[address] Cholesterol, total (02/28/2017 10:05 AM EDT) [facility] gist Method Time Signature Chol, Total 103 <=239 JERE mg/dL [facility] Lipid See Note JERE Interpretation [facility] Comment: Lipid management should be guided by a p atient? s ASCVD risk, goals and preferences. ACC/AHA Guidelines recommend high intens ity statin if clinical ASCVD or LDL greater than or equal to 190 mg/dL. http://Industry Weapon.CorCardia/MYL-XFE-Atlwumvve Adults aged 40-75 with LDL 70-189 mg/dL should have their 10 year ASCVD risk estimated with the ACC/AHA ASCVD risk es timator http://tools.acc.org/XDQQY-Fgem-Alurumsf r/ Statin should be discussed if risk [...] specimen 02/28/2017 10: 7 (specimen) AM EDT 10:13 AM EDT Resulting Agency Comment Spec In Lab Alejo Garnett MD CHEMISTRY ORDERABLES Performing Organization Address City/[facility]/ZIP Code Phon e Number [address] U24 Hrs and Volume (02/28/2017 9:00 AM EDT) P athologist Signature Hours 24 hour(s) [facility] LABORATORY Urine TV (ml) 2,050 mL [facility]OR[facility]ORY Specimen Anatomical Collection Method Collection Time Receive d Time (Source) Location / / Volume Laterality Urine specimen 02/28/2017 9:00 AM 017 (specimen) EDT 11:38 AM EDT Resulting Agency Comment Spec In Lab Alejo Garnett MD CHEMISTRY ORDERABLES Performing Organization Address City/[facility]/ZIP Code Phon e Number [address] (ABNORMAL) Protein, urine, 24 hour (02/28/2017 9:00 AM EDT) Analysis Performed At Patho logist Time Signature U24 Prot Conc 30 <=80 mg/dL [facility] LABOR[facility]ORY U24 Prot Calc 0.62 (H) <=0.15 [facility]/24hr [facility] Specimen Anatomical Collection Method Collection Time Receive d Time (Source) Location / / Volume Laterality Urine specimen 02/28/2017 9:00 AM 017 (specimen) EDT 11:38 AM EDT Resulting Agency Comment Spec In Lab Alejo Garnett MD URINE ORDERABLES Performing Organization Address City/[facility]/ZIP Code Phon e Number [address] Phosphorus, urine, 24 hour (02/28/2017 9:00 AM EDT) P athologist Signature U24 Phos Conc 41.5 mg/dL [facility] LABORATORY U24 Phos Calc 0.9 0.4 - 1.3 [facility] gm/24hr [facility]ORY Specimen Anatomical Collection Method Collection Time Receive d Time (Source) Location / / Volume Laterality Urine specimen 02/28/2017 9:00 AM 017 (specimen) EDT 11:38 AM EDT Resulting Agency Comment Spec In Lab Alejo Garnett MD URINE ORDERABLES Performing Organization Address City/[facility]/ZIP Code Phon e Number [address] (ABNORMAL) Calcium, urine, 24 hour (02/28/2017 9:00 AM EDT) P athologist Signature U24 Ca Conc 1.4 mg/dL [facility] LABOR[facility]ORY U24 Ca Calc 28.7 (L) 50.0 - [facility] 300.0 [facility] mg/24hr HOSPITAL LABORATORY Comment: Reference Range: 50.0-300.0 mg/ 24 hour based on diet. Specimen Anatomical Collection Method Collection Time Receive d Time (Source) Location / / Volume Laterality Urine specimen 02/28/2017 9:00 AM 017 (specimen) EDT 11:38 AM EDT Resulting Agency Comment Spec In Lab Alejo Garnett MD URINE ORDERABLES Performing Organization Address City/[facility]/[place] [address] Creatinine, urine, 24 hour (02/28/2017 9:00 AM EDT) P athologist Signature U24 Creat Conc 80 mg/dL [facility] U24 Creat Calc 1.64 0.80 - [facility] 1.90 [facility] gm/24hr [facility] LAB[facility] Specimen Anatomical Collection Method Collection Time Receive d Time (Source) Location / / Volume Laterality Urine specimen 02/28/2017 9:00 AM 017 (specimen) EDT 11:38 AM EDT Resulting Agency Comment Spec In Lab Alejo Garnett MD URINE ORDERABLES Performing Organization Address City/[facility]/[place] [address] documented in this encounter Visit Diagnoses Diagnosis Kidney replaced by transplant documented in this encounter Care Teams Drywall Sprayer Relationship Specialty Start Date End Date Violetta Sanford MD PCP - General 04/02/14 [address] [place] [address] documented as of this encounter
--- OUTSIDE RECORDS SUMMARY | 2022-06-16 12:28 | XMS_ITS | Encounter Summary ---
:1955 Author Organization [facility] [place] [address] Care Team Providers Name Role Phone Violetta Sanford MD Primary Care Provider Encounter Details Date Type Department Care Team Description 06/14/2017 Laboratory Appointment Lab 3L Sylvia you type 2 diabetes mellitus with complication, with long-term current use of insulin; [facility] Type 2 di abetes mellitus with complication, with long-[place] [address] Social History Tobacco Use Types Packs/Day Years [...] Rojas MD [facility] Neurology [place], [place] [phone] (Wo rk) 06/29/2022 Appointment Cardiology Violetta Sanford M D [address] [place] [address] (Oscar escobedo) 06/30/2022 Infusion Hematology and Oncology 07/14/2022 Infusion Hematology and Oncology 07/28/2022 Infusion Hematology and Oncology 08/11/2022 Infusion Hematology and Oncology 08/16/2022 Office Visit Audiology Mindy Moody AUD [facility] AUDIOLOGY DEPT [place], [place] [address] (Wo rk) 11/04/2022 Office Visit Rheumatology Dante Freedman PA [facility] ER RHEUMATOLOGY [place], [place] [address] (Wo rk) documented as of [...] athologist Signature TSH 2.52 0.27 - 4.20 [facility] mlU/ML [facility] LABORATORY Specimen Anatomical Collection Method Collection Time Receive d Time (Source) Location / / Volume Laterality Blood specimen 06/14/2017 9:44 AM 017 9:53 (specimen) EST AM EST Resulting Agency Comment Spec In Lab Donell Hernandez MD CHEMISTRY ORDERABLES Performing Organization Address City/State/[place] [address] (ABNORMAL) Creatinine (06/14/2017 9:44 AM EST) Analysis Performed At Patho logist Time Signature Creatinine 1.94 (H) 0.80 - [facility] 1.50 mg/dL [facility] LABORATORY Estimated GFR 35 (L) >=60 [facility] LAB[facility]ORY Comment: The reported eGFR should be multiplied b y 1.2 for patients. The MDRD is not an appropriate measure o f renal function for patients with body mass extremes or in patients with acute kidney failure. http://Chunnel.TV/DHnkdep http://Chunnel.TV/DHMCnkf Specimen Anatomical Collection Method Collection Time Receive d Time (Source) Location / / Volume Laterality Blood specimen 06/14/2017 9:44 AM 017 9:53 (specimen) EST AM EST Resulting Agency Comment Spec In Lab Donell Hernandez MD CHEMISTRY ORDERABLES Performing Organization Address City/State/[place] [address] (ABNORMAL) Hemoglobin A1c (06/14/2017 9:44 AM EST) Analysis Performed At Patho [facility] Time Signature Hemoglobin A1C 8.2 (H) 4.3 [...] Mellitus, Diabetes Care 2013; 36: Suppl. 1, O17-36 Est Avg Gluc 189 mg/dL [facility] [...] with hemoglobinopathies. Additional resources are available on [facility] website. Scooby MALDONADO, Nba J, Sydnee R, et al. ??Tr anslating the A1C assay into estimated average glucose values. ??Diabetes Care 2008:31(8):9157-6121. Specimen Anatomical Collection Method Collection Time Receive d Time (Source) Location / / Volume Laterality Blood specimen 06/14/2017 9:44 AM 017 9:53 (specimen) EST AM EST Resulting Agency Comment Spec In Lab Donell Hernandez MD CHEMISTRY ORDERABLES Performing Organization Address City/State/[place] [address] documented in this encounter Visit Diagnoses Diagnosis Uncontrolled type 2 diabetes mellitus [facility] complication, with long-term current use of insulin Type 2 diabetes mellitus with complicati on, with long-term current use of insulin documented in this encounter Care Teams Termite Inspector Relationship Specialty Start Date End Date Violetta Sanford MD PCP - General 04/02/14 [address] [place] [address] documented as of this encounter
--- OUTSIDE RECORDS SUMMARY | 2022-06-16 12:28 | XMS_ITS | Encounter Summary ---
:1955 Author Organization [facility] [place] [address] Care Team Providers Name Role Phone Violetta Sanford MD Primary Care Provider Reason for Visit Reason Onset Date Comments Medication Refill 10/19/2017 Encounter Details Date Type Department Care Team Description 10/19/2017 Refill Solid Organ Transplant Lynda Pyle, [place] [address] Social History Tobacco Use Types Packs/Day [...] Rojas MD [facility] Neurology [place], [place] [phone] (Wo rk) 06/29/2022 Appointment Cardiology Violetta Sanford M D [address] [place], [place] [address] (Wo gregg) 06/30/2022 Infusion Hematology and Oncology 07/14/2022 Infusion Hematology and Oncology 07/28/2022 Infusion Hematology and Oncology 08/11/2022 Infusion Hematology and Oncology 08/16/2022 Office Visit Audiology Mindy Moody AUD [facility] AUDIOLOGY DEPT [place], [place] [address] (Wo rk) 11/04/2022 Office Visit Rheumatology Dante Freedman PA [facility] RHEUMATOLOGY [place], [place] [address] (Wo rk) documented as of this encounter Visit Diagnoses Diagnosis Transplanted kidney Kidney replaced by transplant documented in this encounter Care Teams Oiling Machine Operator Relationship Specialty Start Date End Date Violetta Sanford MD PCP - General 04/02/14 [facility] [address] [place] [address] documented as of this encounter
--- OUTSIDE RECORDS SUMMARY | 2022-06-16 12:28 | XMS_ITS | Encounter Summary ---
:1955 Author Organization [facility] [place] [address] Care Team Providers Name Role Phone Violetta Sanford MD Primary Care Provider Encounter Details Date Type Department Care Team Description 08/18/2017 Orders Only Solid Organ [place]plant [place] [address] Social History Tobacco Use Types Packs/Day Years [...] 10:02 AM EST Standing orders faxed to [facility] at [phone]. documented in this encounter Plan of Treatment Upcoming Encounters Date Type Specialty Care Team Description 06/16/2022 Infusion Hematology and Oncology 06/21/2022 Office Visit Neurology Tyler Rojas MD [facility] er Dr Farah [place], [place] [phone] (Wo rk) 06/29/2022 Appointment Cardiology Violetta Sanford M D [address] [place] [address] (Wo rk) 06/30/2022 Infusion Hematology and Oncology 07/14/2022 Infusion Hematology and Oncology 07/28/2022 Infusion Hematology and Oncology 08/11/2022 Infusion Hematology and Oncology 08/16/2022 Office Visit Audiology Mindy Moody AUD [facility] AUDIOLOGY DEPT [place], [place] [address] (Wo rk) 11/04/2022 Office Visit Rheumatology Dante Freedman, PA [facility] RHEUMATOLOGY [place], [place] [address] (Wo rk) documented as of this encounter Visit Diagnoses Not on filedocumented in this encounter Care Teams Merchandising Lead Relationship Specialty Start Date End Date Violetta Sanford MD PCP - General 04/02/14 [address] [place] [address] documented as of this encounter
--- OUTSIDE RECORDS SUMMARY | 2022-06-16 12:29 | XMS_ITS | Encounter Summary ---
:1955 Author Organization [facility] [place] [address] Care Team Providers Name Role Phone Violetta Sanford MD Primary Care Provider Reason for Visit Reason Onset Date Comments Medication Refill 01/24/2017 Encounter Details Date Type Department Care Team Description 01/24/2017 Refill Endocrinology at [facility] C Donell Hernandez MD [facility] [place] [address] ENDOCRINOLOGY DEPT. [phone] [place], [place] [address] (Wo rk) Social History Tobacco [...] Rojas MD [facility] Dr [place], [place] [phone] (Wo rk) 06/29/2022 Appointment Cardiology Violetta Sanford M D [address] [place] [address] (Wo rk) 06/30/2022 Infusion Hematology and Oncology 07/14/2022 Infusion Hematology and Oncology 07/28/2022 Infusion Hematology and Oncology 08/11/2022 Infusion Hematology and Oncology 08/16/2022 Office Visit Audiology Mindy Moody AUD [facility] AUDIOLOGY [place], [place] [address] (Wo rk) 11/04/2022 Office Visit Rheumatology Dante Freedman, DA [facility] RHEUMATOLOGY [place], [place] [address] (Wo rk) documented as of this encounter Visit Diagnoses Not on filedocumented in this encounter Care Teams Teaching Supervisor Relationship Specialty Start Date End Date Violetta Sanford MD PCP - General 04/02/14 [address] [place] [address] documented as of this encounter
--- OUTSIDE RECORDS SUMMARY | 2022-06-16 12:29 | XMS_ITS | Encounter Summary ---
:1955 Author Organization [facility] [place] [address] Care Team Providers Name Role Phone Violetta Sanford MD Primary Care Provider Encounter Details Date Type Department Care Team Description 09/27/2016 Office Visit Neurology at [facility] Shivam Rojas Tremor, [facility] [place] [address] Neurology [phone] [place] [address] (Wo rk) Social History Tobacco Use Types [...] just fine. He lives up in the [facility] and they still have 3 feet of snow. He has new prosthetics and is still learning to adjust to these, although he has not fallen. On physical exam, he has a high amplitude tremor in the bilateral hands, it also spilled over into the chin. It is exacerbated by action and posture. It is not present at rest. He is fairly accurate on [id number], although the tremor, of course, gets in [...] up sooner. I spent 25 minutes in [id number] consultation with this patient of which greater than 15 minutes was spent in supportive counseling and therapeutic planning. Shivam Rojas MD 09/27/2016 documented in this encounter Plan of Treatment Upcoming Encounters Date Type Specialty Care Team Description 06/16/2022 Infusion Hematology and Oncology 06/21/2022 Office Visit Neurology Tyler Rojas MD [facility] Neurology [place], [place] [phone] (Wo rk) 06/29/2022 Appointment Cardiology Violetta Sanford M D [address] [place], [place] [id number] (Wo rk) 06/30/2022 Infusion Hematology and Oncology 07/14/2022 Infusion Hematology and Oncology 07/28/2022 Infusion Hematology and Oncology 08/11/2022 Infusion Hematology and Oncology 08/16/2022 Office Visit Audiology Mindy Moody AUD [facility] AUDIOLOGY DEPT [place], [place] [address] (Wo rk) 11/04/2022 Office Visit Rheumatology Dante Freedman PA [facility] RHEUMATOLOGY [place], [place] [address] (Wo rk) documented as of this encounter Visit Diagnoses Diagnosis Tremor, essential Essential and other specified forms of t remor documented in this encounter Care Teams Load Checker Relationship Specialty Start Date End Date Violetta Sanford MD PCP - General 04/02/14 [address] [place], [place] [id number] documented as of this encounter
--- OUTSIDE RECORDS SUMMARY | 2022-06-16 12:29 | XMS_ITS | Encounter Summary ---
:1955 Author Organization [facility] [place] [address] Care Team Providers Name Role Phone Violetta Sanford MD Primary Care Provider Encounter Details Date Type Department Care Team Description 09/03/2016 Hospital [place] [address] Social History Tobacco Use Types Packs/Day [...] times daily. Capsule,Sustained Action 24 hr Insulin [place], Form faxed for new Rx 450 each 4 04/19/20 14 03/09/2017 Disposable, (BD to [facility] INSULIN PEN NEEDLE UF SHORT) 31 X 5/16 NeedleIndications: Diabetes mellitus, Type II or unspecified [...] Rojas MD [facility] Neurology [place], [place] [phone] (Wo rk) 06/29/2022 Appointment Cardiology Violetta Sanford M D [facility] AL[address] Miller [address] [address] (Wo rk) 06/30/2022 Infusion Hematology and Oncology 07/14/2022 Infusion Hematology and Oncology 07/28/2022 Infusion Hematology and Oncology 08/11/2022 Infusion Hematology and Oncology 08/16/2022 Office Visit Audiology Mindy Moody AUD [facility] AUDIOLOGY [place], [place] [address] (Wo rk) 11/04/2022 Office Visit Rheumatology Dante Freedman PA [facility] RHEUMATOLOGY [place], [place] [address] (Wo rk) documented as of this encounter Procedures Procedure Name Priority Date/Time Associated Diagnosis Comme nts TACROLIMUS LEVEL Routine 09/03/2016 12:00 PM Resu lts for this EST procedure are i n the results section. documented in this encounter Results Tacrolimus level (09/03/2016 12:00 PM EST) P athologist Signature Tacrolimus Lvl 3.5 ng/mL [facility] Comment: Trough [...] Organization Address City/State/[place] [address] documented in this encounter Visit Diagnoses Not on filedocumented in this encounter Care Teams Housing Court Judge Relationship Specialty Start Date End Date Violetta Sanford MD PCP - General 04/02/14 [address] [place] [address] documented as of this encounter
--- OUTSIDE RECORDS SUMMARY | 2022-06-16 12:29 | XMS_ITS | Encounter Summary ---
:1955 Author Organization [facility] [place] [address] Care Team Providers Name Role Phone Violetta Sanford MD Primary Care Provider Reason for Visit Reason Comments Kidney Transplant Follow-up Immunotherapy Encounter Details Date Type Department Care Team Description 08/06/2016 Office Visit Solid Organ [place], Kidney replaced by transplant; Transplant at [facility] Alejo Desir MD Aftercare following organ transplant; [facility] H/O mesfin y transplant; [facility] [address] [place], [place] TRANSPLANT [address] SURGERY [phone] [place] [address] Social History Tobacco Use Types Packs/Day Years [...] Elizabeth MD - 08/06/2016 9:30 AM EST [facility] Transplant Nephrology Follow Up ?? Leroy Torres [id number] 1955 ?? Transplant ID: Date: 08/06/2016 Patient: Leroy Torres Transplant Date: 02/29/08 Organ(s) Kidney [place] organ diagnosis: Diabetes Mellitus - Type II From Transplant: 8 years 5 months Last visit 01/05/2016 ?? Transplant ID: Mr. Leroy Torres is a White Not nor 61 y.o. male who is Status Post Kidney transplantation. Patient referred by Dr. Xiao. Mr. Leryo Torres presents to clinic forroutine follow-up of care, for Kidney transplantation. Trouble sleeping at night. MELISSA was diagnosed and Vegetable Harvest Worker ordered CPAP machine at night with shanita [...] every 5 for non diabetics done 03/21/2015 [place] kidney ultrasound looking for renal cell CA, [...] mcg/actuation Mist 1 ??? Miscellaneous Medical Supply [facility] 4 Devices by [facility].(Non-Drug; Combo Route) route daily. Rubber [...] mouth 3 times daily. 0 ??? Insulin [place], Disposable, (BD INSULIN PEN NEEDLE UF SHORT) 31 X 16 Needle Form faxed for new Rx to [...] Leukocytes UA Negative Appearance UA Clear Spec [place] UA 1.013 Color UA Yellow RBC UA [...] Rojas MD [facility] Neurology [place], [place] [phone] (Oscar escobedo) 06/29/2022 Appointment Cardiology Violetta Sanford M D [facility] [address] [place] [address] (Oscar escobedo) 06/30/2022 Infusion Hematology and Oncology 07/14/2022 Infusion Hematology and Oncology 07/28/2022 Infusion Hematology and Oncology 08/11/2022 Infusion Hematology and Oncology 08/16/2022 Office Visit Audiology Mindy Moody AUD [facility] AUDIOLOGY DEPT [place] [phone] (Wo rk) 11/04/2022 Office Visit Rheumatology Dante Freedman PA [facility] RHEUMATOLOGY [place] [address] (Wo rk) documented as of this encounter Results (ABNORMAL) Uric acid (08/06/2016 7:41 AM EST) athologist Signature Uric Acid 12.1 (H) 3.5 - 8.5 [facility] mg/dL [facility] Specimen Anatomical Collection Method Collection Time Receive d Time (Source) Location / / Volume Laterality Blood specimen 08/06/2016 7:41 AM 017 7:44 (specimen) EST AM EST Resulting Agency Comment Spec In Lab Alejo Garnett MD CHEMISTRY ORDERABLES Performing Organization Address City/State/[place] [address] Tacrolimus level (08/06/2016 7:41 AM EST) athologist [facility] Tacrolimus Lvl 5.5 ng/mL [facility] Comment: [...] Organization Address City/State/[place] [address] (ABNORMAL) Reticulocyte Count (08/06/2016 7:41 AM EST) Patholo gist Method Time Signature Retic Ct % 2.8 (H) 0.7 - 2.6 [facility] LABORATORY Retic Ct Abs 0.110 0.030 - [facility] 0.120 [facility] x10(6)/[facility] L LABORATORY Immature Retic% 15.7 (H) 0.0 - [facility] MELI 15.6 % [facility] Reticulated Hgb 33.2 31.3 - [facility] MELI 40.2 pg [facility] Specimen Anatomical Collection Method Collection Time Receive d Time (Source) Location / / Volume Laterality Blood specimen 08/06/2016 7:41 AM 017 7:44 (specimen) EST AM EST Resulting Agency Comment Spec In Lab Alejo Garnett MD HEMATOLOGY ORDERABLES Performing Organization Address City/[facility]/ZIP Code Phon e Number [address] Phosphorus (08/06/2016 7:41 AM EST) P athologist Signature Phosphorus 3.8 2.5 - 4.5 [facility] MELI mg/dL [facility] Specimen Anatomical Collection Method Collection Time Receive d Time (Source) Location / / Volume Laterality Blood specimen 08/06/2016 7:41 AM 017 7:44 (specimen) EST AM EST Resulting Agency Comment Spec In Lab Alejo Garnett MD CHEMISTRY ORDERABLES Performing Organization Address City/[facility]/ZIP Code Phon e Number [address] Magnesium (08/06/2016 7:41 AM EST) P athologist Signature Magnesium 0.75 0.69 - 1.07 [facility] MELI mmol/L [facility] Specimen Anatomical Collection Method Collection Time Receive d Time (Source) Location / / Volume Laterality Blood specimen 08/06/2016 7:41 AM 017 7:44 (specimen) EST AM EST Resulting Agency Comment Spec In Lab Alejo Garnett MD CHEMISTRY ORDERABLES Performing Organization Address City/[facility]/ZIP Code Phon e Number [address] (ABNORMAL) Comprehensive metabolic panel (non-fasting) (08/06/2016 7:41 AM EST) P athologist Signature Glucose Lvl 239 (H) 65 - 199 [place] mg/dL [facility] Comment: Diabetes: >=200 mg/dL plus symp toms BUN 43 (H) 10 - 20 mg/dL [facility] Creatinine 2.23 (H) 0.80 - 1.50 mg/dL [facility] Comment: Please note that the pediatric reference intervals supplied above were not validated at [facility]. Results from pediatri c patients should be interpreted in conjunction to the patient's age, height and muscle mass. Sodium 141 135 - 145 mmol/L [facility] Potassium 4.4 3.5 - 5.0 mmol/L [facility] Comment: Please note: ??Patients with WBC >100,00 0 may have falsely elevated Potassium levels. ??For accurate Potassium quantif ication in these patients send serum separator tube (gold top) for subsequent determinations. ??Contact the Clinical Chemistry Laboratory if there are any qu estions. Chloride 103 98 - 107 mmol/L [facility] CO2 24 22 - 31 mmol/L [facility] Anion Gap 14 5 - 15 mmol/L [facility] Calcium 9.5 8.5 - 10.5 mg/dL [facility] Total Protein 8.3 (H) 6.1 - 8.0 gm/dL [facility] Albumin 3.6 3.2 - 5.2 gm/dL [facility] AST 12 0 - 39 unit/L [facility] ALT 11 0 - 55 unit/L [facility] Alk Phos 114 40 - 120 unit/L [facility] Total Bilirubin 0.5 0.2 - 1.3 mg/dL [facility] Bili, Direct 0.2 0.0 - 0.3 mg/dL [facility] Estimated GFR 30 (L) >=60 [facility] Comment: [...] the following links into your internet browser. [email or web address] [email or web address] Specimen Anatomical Collection Method Collection Time Receive d Time (Source) Location / / Volume Laterality Blood specimen 08/06/2016 7:41 AM 017 7:44 (specimen) EST AM EST Resulting Agency Comment Spec In Lab Alejo Garnett MD CHEMISTRY ORDERABLES Performing Organization Address City/State/ZIP Code Phon e Number [place] [id number] Cholesterol, total (08/06/2016 7:41 AM EST) [facility] gist Method Time Signature Chol, Total 90 <=239 [place] mg/dL [facility] Lipid See Note [place]ERE Interpretation [facility] Comment: Lipid management should be guided by a p atient? s ASCVD risk, goals and preferences. ACC/AHA Guidelines recommend high intens ity statin if clinical ASCVD or LDL greater than or equal to 190 mg/dL. http://circ.ahajournals.org/content/felix y/.cir.0708702597.46723.7a Adults aged 40-75 with LDL 70-189 mg/dL should have their 10 year ASCVD risk estimated with the ACC/AHA ASCVD risk es timator http://tools.acc.org/VSOVJ-Alsv-Jctsfxbu r/ Statin should be discussed if risk [...] Organization Address City/State/[place] [address] (ABNORMAL) Urinalysis with reflex Culture (08/06/2016 7:38 AM EST) [facility] Method Time Signature Glucose UA 50 (A) Negative [facility] mg/dL [facility] Protein UA 30 (A) Negative [facility] mg/dL [facility] Bilirubin UA Negative Negative [facility] mg/dL [facility] Comment: Clinical correlation required for positi ve Urine Bilirubin results as false positive may occur with some drugs and d rug related products. If a false positive is suspected a serum total bili reyna should be considered if clinically indicated. Urobilinogen UA Normal Normal mg/dL [facility] pH UA 6.0 5.0 - 8.0 [facility] Blood UA Negative Negative mg/dL [facility] Ketones UA Negative Negative mg/dL [facility] Nitrite UA Negative Negative [facility] Leukocytes UA Negative Negative [facility] LABORATORY Appearance UA Clear Clear [facility] Spec [place] UA 1.013 1.002 - 1.030 [facility] Color UA Yellow Yellow [facility] RBC UA 1 0 - 3 /HPF [facility] WBC UA 2 0 - 3 /HPF [facility] Squam Epith UA 1 <=4 /HPF [facility] Hyaline Cast UA 12 (H) 0 - 2 /LPF [facility] Culture Reflexed No [facility] Specimen (Source) Anatomical Collection Method Collection Time Re ceived Time Location / / Volume Laterality Urine specimen 08/06/2016 7:38 08/06/2016 7:44 obtained by clean AM EST AM EST catch procedure (specimen) Resulting Agency Comment Spec In Lab Alejo Garnett MD URINE ORDERABLES Performing Organization Address City/State/[place] [address] (ABNORMAL) Protein/Creatinine Ratio, urine (08/06/2016 7:38 AM EST) P athologist Signature U Creatinine 107 mg/dL [facility] U Protein Ran 18 (H) 0 - 12 [facility] mg/dL [facility] Prot/Cre Ratio 0.2 ratio [facility] Specimen Anatomical Collection Method Collection Time Receive d Time (Source) Location / / Volume Laterality Urine specimen 08/06/2016 7:38 AM 017 7:45 (specimen) EST AM EST Resulting Agency Comment Spec In Lab Alejo Garnett MD URINE ORDERABLES Performing Organization Address City/[facility]/[place] [address] documented in this encounter Visit Diagnoses Diagnosis Kidney replaced by transplant Aftercare following organ transplant H/O kidney transplant Kidney replaced by transplant Immunosuppression Unspecified disorder of immune mechanism documented in this encounter Care Teams Career Technical Education Instructor Relationship Specialty Start Date End Date Violetta Sanford MD PCP - General 04/02/14 [address] [place] [address] documented as of this encounter
--- OUTSIDE RECORDS SUMMARY | 2022-06-16 12:29 | XMS_ITS | Encounter Summary ---
:1955 Author Organization [facility] [place] [address] Care Team Providers Name Role Phone Violetta Sanford MD Primary Care Provider Encounter Details Date Type Department Care Team Description 03/20/2015 Telephone Solid Organ [place]plant [place] [address] Social History Tobacco Use Types Packs/Day Years [...] Rojas MD [facility] Neurology [place], [place] [phone] (Wo rk) 06/29/2022 Appointment Cardiology Violetta Sanford M D [address] [place] [address] (Wo rk) 06/30/2022 Infusion Hematology and Oncology 07/14/2022 Infusion Hematology and Oncology 07/28/2022 Infusion Hematology and Oncology 08/11/2022 Infusion Hematology and Oncology 08/16/2022 Office Visit Audiology Mindy Moody AUD [facility] AUDIOLOGY DEPT [place], [place] [address] (Wo rk) 11/04/2022 Office Visit Rheumatology Dante Freedman PA [facility] RHEUMATOLOGY [place], [place] [address] (Wo rk) documented as of this encounter Visit Diagnoses Not on filedocumented in this encounter Care Teams Outdoor Education Teacher Relationship Specialty Start Date End Date Violetta Sanford MD PCP - General 04/02/14 [address] [place], [place] [address] documented as of this encounter
--- OUTSIDE RECORDS SUMMARY | 2022-06-16 12:29 | XMS_ITS | Encounter Summary ---
:1955 Author Organization [facility] [place] [address] Care Team Providers Name Role Phone Violetta Sanford MD Primary Care Provider Encounter Details Date Type Department Care Team Description 05/07/2015 Hospital Encounter Non-Invasive Violetta Sanford, Insulin dependent diabetes mellitus; Cardiology Lab Sylvia HAWK History of kidney transplant [id number] [place] [address] [phone] (Work) [phone] Social History Tobacco Use Types Packs/Day Years [...] faxed to [facility] for new Rx Insulin Metter, Form faxed for new Rx 450 each [...] Rojas MD [facility] Neurology [place], [place] [phone] (Wo rk) 06/29/2022 Appointment Cardiology Violetta Sanford M D [address] [place] [address] (Wo rk) 06/30/2022 Infusion Hematology and Oncology 07/14/2022 Infusion Hematology and Oncology 07/28/2022 Infusion Hematology and Oncology 08/11/2022 Infusion Hematology and Oncology 08/16/2022 Office Visit Audiology Mindy Moody AUD [facility] AUDIOLOGY DEPT [place], [place] [address] (Wo rk) 11/04/2022 Office Visit Rheumatology Dante Freedman PA [facility] RHEUMATOLOGY [place], [place] [address] (Wo rk) documented as of [...] SPEC DOPP,COLOR DOPP (05/07/2015 3:49 PM EDT) athologist Signature EF 65 HEARTLAB SYSTEM Anatomical Region Laterality Modality Other Specimen (Source) Anatomical Location Collection Method / Collectio n Time Received Time / Laterality Volume 05/07/2015 Narrative 05/07/2015 4:14 PM EDT Procedure: ?Stress Echocardiogram Patient: ?ASIM Lui ?(Age): 1955(59y) Med Rec#: ? [id number] ?Sex: ?M ? [place]: ? [facility] ?Ht / Wt: ??195.6(cm)/149.6 Pt. Loc: ?Echo Lab ?BSA: ?2.77 Study Date: ?? 05/07/2015 ?Pt. Type: Tape: ? Referring: Violetta Sanford Reading: Angel Del Real ([id number]) Diagnosis: *ICD-10-PCS Kidney transplant status (Z 94.0) CPT Codes: *Stress Echo (81999) *Color Doppler (25140) *Doppler LTD (93924) *ECG Interpretation (34306) *Definity (97510TY) Stage ? BP ?HR ? Rest ?114/47 [...] E-wave Vmax ?0.7 ?m/sec ? MV deceleration [id number] ?msec ? MV A-wave Vmax ?0.6 ?m/sec [...] ?Normal ?Normal ? Mid-Inferoseptal ?Normal ?Normal ? Maria Stein-Septal ? Normal ?Normal ? Maria Stein-Anterior ? Normal ?Normal ? Maria Stein-Lateral ?Normal ?Normal ? Maria Stein-Inferior ? Normal ?Normal ? Maria Stein-Tip ?Normal ?Normal ? This report has been electronically sign ed by: _ Angel Del Real MD ? 05/07/2015 16 :13:34 Images reviewed and interpretation [facility] Procedure Note Angel Del Real MD - 05/07/2015Formatt ing of this note might be different from the original. Procedure: Stress Echocardiogram Patient: ASIM ZHANG(Age): [birth year](59y) Med Rec#: [id number] Sex: M Site Loc: [facility] Ht / Wt: 195.6(cm)/149.6 Pt. Loc: Echo Lab BSA: 2.77 Study Date: 05/07/2015 Pt. Type: Tape: Referring: Violetta Sanford Reading: Angel Del Real ([id number]) Diagnosis: *ICD-10-PCS Kidney transplant status (Z 94.0) CPT Codes: *Stress Echo (33592) *Color Doppler (35774) *Doppler LTD (22808) *ECG Interpretation (99119) *Definity (07369HG) Stage BP HR Rest 114/47 60 Low [...] MV E-wave Vmax 0.7 m/sec MV deceleration [id number] msec MV A-wave Vmax 0.6 m/sec MV [...] Normal Mid-Inferior Normal Normal Mid-Inferoseptal Normal Normal Maria Stein-Septal Normal Normal Maria Stein-Anterior Normal Normal Maria Stein-Lateral Normal Normal Maria Stein-Inferior Normal Normal Maria Stein-Tip Normal Normal This report has been electronically sign ed by: _ Angel Del Real MD 05/07/2015 16:13:34 Images reviewed and interpretation [facility]ja [facility] Cardiac Ultrasound Laboratory Violetta Sanford MD [...] dose, Starting on Tue05/07/15 at 1549, Until Tue05/07/15 at 1550, Other, Routine documented in this encounter Care Teams Keno Manager Relationship Specialty Start Date End Date Violetta Sanford MD PCP - General 04/02/14 [address] [facility] 1 [place] [address] documented as of this encounter
--- OUTSIDE RECORDS SUMMARY | 2022-06-16 12:29 | XMS_ITS | Encounter Summary ---
:1955 Author Organization [facility] [place] [address] Care Team Providers Name Role Phone Violetta Sanford MD Primary Care Provider Reason for Visit Reason Onset Date Comments Medication Refill 09/15/2016 Encounter Details Date Type Department Care Team Description 09/15/2016 Refill Neurology at [facility] Jesús Sarmiento Jr., MD [place] [address] [place] [address] [phone] (Wo rk) Social History Tobacco Use Types [...] Tyler Rojas MD [facility] [address] [place], [place] [phone] (Wo rk) 06/29/2022 Appointment Cardiology Violetta Sanford M D [address] [place] [address] (Wo rk) 06/30/2022 Infusion Hematology and Oncology 07/14/2022 Infusion Hematology and Oncology 07/28/2022 Infusion Hematology and Oncology 08/11/2022 Infusion Hematology and Oncology 08/16/2022 Office Visit Audiology Mindy Moody AUD [facility] AUDIOLOGY [place], [place] [address] (Wo rk) 11/04/2022 Office Visit Rheumatology Dante Freedman PA [facility] RHEUMATOLOGY [place], [place] [address] (Wo rk) documented as of this encounter Visit Diagnoses Not on filedocumented in this encounter Care Teams Bacteriologist Medical Relationship Specialty Start Date End Date Violetta Sanford MD PCP - General 04/02/14 [address] [place] [address] documented as of this encounter
--- OUTSIDE RECORDS SUMMARY | 2022-06-16 12:29 | XMS_ITS | Encounter Summary ---
:1955 Author Organization [facility] [place] [address] Care Team Providers Name Role Phone Violetta Sanford MD Primary Care Provider Encounter Details Date Type Department Care Team Description 12/07/2016 Laboratory Appointment Lab 3L Jere you type 2 [facility] diabetes mellitus with [place] [phone] Social History Tobacco Use Types Packs/Day Years [...] Rojas MD [facility] Neurology [place], [place] [phone] (Wo rk) 06/29/2022 Appointment Cardiology Violetta Sanford M D [facility] [address] [place], [place] [id number] (Oscar escobedo) 06/30/2022 Infusion Hematology and Oncology 07/14/2022 Infusion Hematology and Oncology 07/28/2022 Infusion Hematology and Oncology 08/11/2022 Infusion Hematology and Oncology 08/16/2022 Office Visit Audiology Mindy Moody, WENDI ONE [facility] AUDIOLOGY DEPT [place], [place] [address] (Wo rk) 11/04/2022 Office Visit Rheumatology Dante Freedman PA [facility] RHEUMATOLOGY [place], [place] [address] (Wo rk) documented as of [...] P athologist Signature LDL Chol 54 <=190 EJRE MELI Direct mg/dL [facility] Specimen Anatomical Collection Method Collection Time Receive d Time (Source) Location / / Volume Laterality Blood specimen 12/07/2016 10:34 7 (specimen) AM EDT 10:39 AM EDT Resulting Agency Comment Spec In Lab Donell Hernandez MD CHEMISTRY ORDERABLES Performing Organization Address City/State/[place] [address] TSH (12/07/2016 10:34 AM EDT) P athologist Signature TSH 1.93 0.27 - 4.20 JERE GARRISON mcIU/mL [facility] Specimen Anatomical Collection Method Collection Time Receive d Time (Source) Location / / Volume Laterality Blood specimen 12/07/2016 10:34 7 (specimen) AM EDT 10:39 AM EDT Resulting Agency Comment Spec In Lab Donell Hernandez MD CHEMISTRY ORDERABLES Performing Organization Address City/[facility]/[place] [address] (ABNORMAL) Creatinine (12/07/2016 10:34 AM EDT) P athologist Signature Creatinine 1.83 (H) 0.80 - [facility] 1.50 mg/dL [facility] Comment: Please note that the pediatric reference intervals supplied above were not validated at [facility]. Results from pediatri c patients should be interpreted in conjunction to the patient's age, height and muscle mass. Estimated GFR 38 (L) >=60 [facility] Comment: This estimated GFR (eGFR) [...] the following links into your internet browser. [email or web address] [email or web address] Specimen Anatomical Collection Method Collection Time Receive d Time (Source) Location / / Volume Laterality Blood specimen 12/07/2016 10:34 7 (specimen) AM EDT 10:39 AM EDT Resulting Agency Comment Spec In Lab Donell Hernandez MD CHEMISTRY ORDERABLES Performing Organization Address City/[facility]/[place] [address] (ABNORMAL) Hemoglobin A1c (12/07/2016 10:34 AM EDT) Analysis Performed At Patho logist Time Signature Hemoglobin A1C 8.6 (H) 4.3 - 5.6 [facility] [...] 36: Suppl. 1, S67-93 Est Avg Gluc 200 mg/dL JERE GARRISON [facility] Comment: eAG equivalents for HbA1c percentages: HbA1c(%) ?eAG(mg/dL) 6.0 ?126 6.5 ?140 7.0 ?154 7.5 ?169 8.0 ?183 8.5 ?197 9.0 ?212 9.5 ?226 10.0 ? 240 Limitations: The eAG calculation has not been validated on women, individuals below 18 years old and above 70 years old, and individuals with hemoglobinopathies. Additional resources are available on [facility] ADA website. Scooby MALDONADO, Nba J, Sydnee R, et al. ??Tr anslating the A1C assay into estimated average glucose values. ??Diabetes Care 2008:31(8):9619-4762. Specimen Anatomical Collection Method Collection Time Receive d Time (Source) Location / / Volume Laterality Blood specimen 12/07/2016 10:34 7 (specimen) AM EDT 10:39 AM EDT Resulting Agency Comment Spec In Lab Donell Hernandez MD CHEMISTRY ORDERABLES Performing Organization Address City/State/[place] [address] documented in this encounter Visit Diagnoses Diagnosis Uncontrolled type 2 diabetes mellitus wi th other specified complication documented in this encounter Care Teams Government Gauger Relationship Specialty Start Date End Date Violetta Sanford MD PCP - General 04/02/14 [address] [facility] 1 [place] [address] documented as of this encounter
--- OUTSIDE RECORDS SUMMARY | 2022-06-16 12:29 | XMS_ITS | Encounter Summary ---
:1955 Author Organization [facility] Address One [facility] [address] [place] [id number] Care Team Providers Name Role Phone Violetta Sanford MD Primary Care Provider Encounter Details Date Type Department Care Team Description 12/02/2015 Office Visit Endocrinology at [facility] C Donell Hernandez, S/P bilateral BKA (below kne e amputation); One [facility] DM type 2 causing complication; [facility] Body mass index (BMI) of 37. 0-37.9 [place] [address] CENTER [phone] ENDOCRIN[address]PT. 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 Has a callus/ulcer of l stump. [...] :2011 last Cr:today last lipid panel:2011 regular spa manager:no special shoes:no flu shot :yes pneumovax: 2011 [...] control. He credits this to his local visual educator she's been telling me this for [...] Visit Neurology Tyler Rojas MD [facility] Neurology [place], [place] [address] (Oscar escobedo) 06/29/2022 Appointment Cardiology Violetta Sanford M D [address] [place] [address] (Oscar escobedo) 06/30/2022 Infusion Hematology and Oncology 07/14/2022 Infusion Hematology and Oncology 07/28/2022 Infusion Hematology and Oncology 08/11/2022 Infusion Hematology and Oncology 08/16/2022 Office Visit Audiology Mindy Moody AUD [facility] AUDIOLOGY DEPT [place], [place] [address] (Wo rk) 11/04/2022 Office Visit Rheumatology Dante Freedman, [facility] RHEUMATOLOGY [place], [place] [address] (Wo rk) documented as of this encounter Results TSH (06/08/2016 10:10 AM EST) athologist Signature TSH 1.81 0.27 - 4.20 JERE MELI mcIU/mL [facility] Specimen Anatomical Collection Method Collection Time Receive d Time (Source) Location / / Volume Laterality Blood specimen 06/08/2016 10:10 6 (specimen) AM EST 10:28 AM EST Resulting Agency Comment Spec In Lab Donell Hernandez MD CHEMISTRY ORDERABLES Performing Organization Address City/State/[place] [address] (ABNORMAL) Creatinine (06/08/2016 10:10 AM EST) athologist Signature Creatinine 1.77 (H) 0.80 - JERE MUROCOCK 1.50 mg/dL [facility] Comment: Please note that the pediatric reference intervals supplied above were not validated at [facility]. Results from pediatri c patients should be interpreted in conjunction to the patient's age, height and muscle mass. Estimated GFR 39 (L) >=60 [facility] [place] [facility] Comment: This estimated GFR (eGFR) value [...] the following links into your internet browser. [email or web address] [email or web address] Specimen Anatomical Collection Method Collection Time Receive d Time (Source) Location / / Volume Laterality Blood specimen 06/08/2016 10:10 6 (specimen) AM EST 10:28 AM EST Resulting Agency Comment Spec In Lab Donell Hernandez MD CHEMISTRY ORDERABLES Performing Organization Address City/State/[place] [address] (ABNORMAL) Hemoglobin A1c (06/08/2016 10:10 AM EST) Analysis Performed At [facility] Time Signature Hemoglobin A1C 8.8 (H) 4.3 - 5.6 [facility] Comment: Reference Range: 4.3 [...] Mellitus, Diabetes Care 2013; 36: Suppl. 1, C97-76 Est Avg Gluc 206 mg/dL [facility] Comment: eAG equivalents for HbA1c percentages: HbA1c(%) ?eAG(mg/dL) 6.0 ?126 6.5 ?140 7.0 ?154 7.5 ?169 8.0 ?183 8.5 ?197 9.0 ?212 9.5 ?226 10.0 ? 240 Limitations: The eAG calculation has not been validated on women, individuals below 18 years old and above 70 years old, and individuals with hemoglobinopathies. Additional resources are available on [facility] website: [email or web address]/[email or web address] – CL[facility]OREadacalc Scooby MALDONADO, Nba J, Sydnee R, et al. ??Tr anslating the A1C assay into estimated average glucose values. ??Diabetes Care 2008:31(8):6118-6240. Specimen Anatomical Collection Method Collection Time Receive d Time (Source) Location / / Volume Laterality Blood specimen 06/08/2016 10:10 6 (specimen) AM EST 10:28 AM EST Resulting Agency Comment Spec In Lab Donell Hernandez MD CHEMISTRY ORDERABLES Performing Organization Address City/State/[place] [address] documented in this encounter Visit Diagnoses Diagnosis S/P bilateral BKA (below knee amputation ) Lower limb amputation, below knee DM type 2 causing complication Type II or unspecified type diabetes fredo litus with unspecified complication, not stated as uncontrolled Body mass index (BMI) of 37.0-37.9 in ad ult Body Mass Index 37.0-37.9, adult documented in this encounter Care Teams Hob Machine Operator Relationship Specialty Start Date End Date Violetta Sanford MD PCP - General 04/02/14 [address] [place] [address] documented as of this encounter
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
--- OUTSIDE RECORDS SUMMARY | 2022-06-16 12:29 | XMS_ITS | Encounter Summary ---
:1955 Author Organization [facility] [employer] [place] [address] Care Team Providers Name Role Phone Violetta Sanford MD Primary Care Provider Reason for Visit Reason Comments Kidney Transplant Follow-up Immunotherapy Encounter Details Date Type Department Care Team Description 12/24/2015 Office Visit Solid Organ Alejo Garnett Kidney re placed by transplant; Transplant at [facility] MD Thang PATIENT NOT SEEN [facility] [address] [place] [address] [place] [address] [phone] Social History Tobacco Use Types Packs/Day Years [...] Rojas MD [facility] Dr [place], [place] [phone] (Wo rk) 06/29/2022 Appointment Cardiology Violetta Sanford M D [address] [place] [address] (Wo rk) 06/30/2022 Infusion Hematology and Oncology 07/14/2022 Infusion Hematology and Oncology 07/28/2022 Infusion Hematology and Oncology 08/11/2022 Infusion Hematology and Oncology 08/16/2022 Office Visit Audiology Mindy Moody AUD [facility] AUDIOLOGY DEPT [place], [place] [address] (Wo rk) 11/04/2022 Office Visit Rheumatology Dante Freedman, DA [facility] RHEUMATOLOGY [place], [place] [address] (Wo rk) documented as of this encounter Results (ABNORMAL) Comprehensive metabolic panel (non-fasting) (01/05/2016 10:05 AM EDT) athologist Signature Glucose Lvl 328 (H) 65 - 199 [facility] mg/dL [facility] Comment: Diabetes: >=200 mg/dL plus symp toms BUN 31 (H) 10 - 20 mg/dL [facility] Creatinine 1.81 (H) 0.80 - 1.50 mg/dL [facility] Comment: Please note that the pediatric reference intervals supplied above were not validated at [facility]. Results from pediatri c patients should be interpreted in conjunction to the patient's age, height and muscle mass. Sodium 135 135 - 145 mmol/L [facility] Potassium 5.0 3.5 - 5.0 mmol/L [facility] Comment: Please note: ??Patients with WBC >100,00 0 may have falsely elevated Potassium levels. ??For accurate Potassium quantif ication in these patients send serum separator tube (gold top) for subsequent determinations. ??Contact the Clinical Chemistry Laboratory if there are any qu estions. Chloride 100 98 - 107 mmol/L [facility] CO2 21 (L) 22 - 31 mmol/L [facility] Anion Gap 14 5 - 15 mmol/L [facility] Calcium 9.5 8.5 - 10.5 mg/dL [facility] Total Protein 8.2 (H) 6.1 - 8.0 gm/dL [facility] Albumin 3.6 3.2 - 5.2 gm/dL [facility] AST 14 0 - 39 unit/L [facility] ALT 27 0 - 55 unit/L [facility] Alk Phos 131 (H) 40 - 120 unit/L [facility] Total Bilirubin 0.4 0.2 - 1.3 mg/dL [facility] Bili, Direct 0.1 0.0 - 0.3 mg/dL [facility] Estimated GFR 38 (L) >=60 [facility] Comment: This estimated GFR [...] the following links into your internet browser. [email or web address] [email or web address] Specimen Anatomical Collection Method Collection Time Receive d Time (Source) Location / / Volume Laterality Blood specimen 01/05/2016 10:05 6 (specimen) AM EDT 10:21 AM EDT Resulting Agency Comment Spec In Lab Alejo Garnett MD CHEMISTRY ORDERABLES Performing Organization Address City/State/[place] [address] (ABNORMAL) Magnesium (01/05/2016 10:05 AM EDT) P athologist Signature Magnesium 0.65 (L) 0.69 - 1.07 [facility] MELI mmol/L [facility] Specimen Anatomical Collection Method Collection Time Receive d Time (Source) Location / / Volume Laterality Blood specimen 01/05/2016 10: 6 (specimen) AM EDT 10:21 AM EDT Resulting Agency Comment Spec In Lab Alejo Garnett MD CHEMISTRY ORDERABLES Performing Organization Address City/State/ZIP Code Phon e Number [address] Phosphorus (01/05/2016 10:05 AM EDT) P athologist Signature Phosphorus 3.3 2.5 - 4.5 [facility] Specimen Anatomical Collection Method Collection Time Receive d Time (Source) Location / / Volume Laterality Blood specimen 01/05/2016 10:05 6 (specimen) AM EDT 10:21 AM EDT Resulting Agency Comment Spec In Lab Alejo Garnett MD CHEMISTRY ORDERABLES Performing Organization Address City/State/ZIP Code Phon e Number [address] Uric acid (01/05/2016 10:05 AM EDT) P athologist Signature Uric Acid 7.3 3.5 - 8.5 [facility] mg/dL [facility] Specimen Anatomical Collection Method Collection Time Receive d Time (Source) Location / / Volume Laterality Blood specimen 01/05/2016 10: 6 (specimen) AM EDT 10:21 AM EDT Resulting Agency Comment Spec In Lab Alejo Garnett MD CHEMISTRY ORDERABLES Performing Organization Address City/State/ZIP Code Phon e Number [address] Tacrolimus level (01/05/2016 10:05 AM EDT) P athologist Signature Tacrolimus Lvl 5.1 ng/mL [facility] Comment: Trough therapeutic: 5-15 ng/mL Specimen Anatomical Collection Method Collection Time Receive d Time (Source) Location / / Volume Laterality Blood specimen 01/05/2016 10:05 6 (specimen) AM EDT 11:42 AM EDT Resulting Agency Comment Spec In Lab Alejo Garnett MD CHEMISTRY ORDERABLES Performing Organization Address City/[facility]/ZIP [facility] [place] [address] (ABNORMAL) Reticulocyte Count (01/05/2016 10:05 AM EDT) Patholo gist Method Time Signature Retic Ct % 3.0 (H) 0.5 - 2.4 [facility] Retic Ct Abs 0.130 (H) 0.027 - [facility] 0.095 [facility] x10(6[facility] LABORATORY Immature Retic% 19.9 (H) 2.3 - [facility] 15.9 % [facility] Reticulated Hgb 32.9 28.5 - [facility] 38.9 pg [facility] Plat Immature % 1.0 0.0 - 7.4 [facility] Specimen Anatomical Collection Method Collection Time Receive d Time (Source) Location / / Volume Laterality Blood specimen 01/05/2016 10: 6 (specimen) AM EDT 10:21 AM EDT Resulting Agency Comment Spec In Lab Alejo Garnett MD HEMATOLOGY ORDERABLES Performing Organization Address [facility] [place] [address] Cholesterol, total (01/05/2016 10:05 AM EDT) P athologist Signature Chol, Total 130 <=199 mg/dL [facility] Comment: Recommendations of the NCEP Adult Treatm ent Panel for the following risk cutoff thresholds for the [place] populatio n: Desirable: <200 mg/dL Borderline High: 200-239 mg/dL High: > or = 240 mg/dL Specimen Anatomical Collection Method Collection Time Receive d Time (Source) Location / / Volume Laterality Blood specimen 01/05/2016 10:05 6 (specimen) AM EDT 10:21 AM EDT Resulting Agency Comment Spec In Lab Alejo Garnett MD CHEMISTRY ORDERABLES Performing Organization Address City/[facility]/ZIP [place] [address] documented in this encounter Visit Diagnoses Diagnosis Kidney replaced by transplant DH PATIENT NOT SEEN documented in this encounter Care Teams Branch Library Clerk Relationship Specialty Start Date End Date Violetta Sanford MD PCP - General 04/02/14 [address] [place] [address] documented as of this encounter
--- OUTSIDE RECORDS SUMMARY | 2022-06-16 12:29 | XMS_ITS | Encounter Summary ---
:1955 Author Organization [place] [address] Care Team Providers Name Role Phone Violetta Sanford MD Primary Care Provider Encounter Details Date Type Department Care Team Description 01/06/2017 Refill Solid Organ Transplant Lynda Pyle, [place] [address] Social History Tobacco Use Types Packs/Day Years [...] Tyler Rojas MD [facility] Neurology [place], [place] [phone] (Oscar rk) 06/29/2022 Appointment Cardiology Violetta Sanford M D [facility] [address] [place], [place] [id number] (Oscar escobedo) 06/30/2022 Infusion Hematology and Oncology 07/14/2022 Infusion Hematology and Oncology 07/28/2022 Infusion Hematology and Oncology 08/11/2022 Infusion Hematology and Oncology 08/16/2022 Office Visit Audiology Mindy Moody, W[facility]I [facility] AUDIOLOGY DEPT [place], [place] [address] (Wo rk) 11/04/2022 Office Visit Rheumatology Dante Freedman, DA [facility] RHEUMATOLOGY [place], [place] [address] (Wo rk) documented as of this encounter Visit Diagnoses Diagnosis Transplanted kidney Kidney replaced by transplant documented in this encounter Care Teams Detonator Maker Relationship Specialty Start Date End Date Viloetta Sanford MD PCP - General 04/02/14 [address] [place] [address] documented as of this encounter
--- OUTSIDE RECORDS SUMMARY | 2022-06-16 12:29 | XMS_ITS | Encounter Summary ---
:1955 Author Organization [facility] [place] [address] Care Team Providers Name Role Phone Violetta Sanford MD Primary Care Provider Encounter Details Date Type Department Care Team Description 11/12/2015 Office Visit Neurology at [facility] Angel Boyd, Tremor, essential; [facility] Type 2 diabetes mellitus [place] [address] NEUROLOGY DEPT. [phone] [place], [place] [address] Social History Tobacco Use Types [...] MD [facility] Neurology [place] [phone] ([facility]) 06/29/2022 Appointment Cardiology Violetta Sanford M D [facility] [address] [place] [address] ([facility]) 06/30/2022 Infusion Hematology and Oncology 07/14/2022 Infusion Hematology and Oncology 07/28/2022 Infusion Hematology and Oncology 08/11/2022 Infusion Hematology and Oncology 08/16/2022 Office Visit Audiology Mindy Moody AUD [facility] AUDIOLOGY [place], [place] [address] ([facility]) 11/04/2022 Office Visit Rheumatology Dante Freedman PA [facility] RHEUMATOLOGY [place], [place] [address] (Wo rk) documented as of this encounter Visit Diagnoses Diagnosis Tremor, essential Essential and other specified forms of t remor Type 2 diabetes mellitus with diabetic n europathy Type II or unspecified type diabetes fredo litus with neurological manifestations, not stated as uncontrolled documented in this encounter Care Teams [address] [address] Magistrate Relationship Specialty Start Date End Date Violetta Sanford MD PCP - General 04/02/14 [address] [place] [address] documented as of this encounter
--- OUTSIDE RECORDS SUMMARY | 2022-06-16 12:29 | XMS_ITS | Encounter Summary ---
:1955 Author Organization [facility] Address [facility] [place] [address] Care Team Providers Name Role Phone Violetta Sanford MD Primary Care Provider Reason for Visit Reason Comments Diabetes Encounter Details Date Type Department Care Team Description 06/30/2015 Office Visit Endocrinology at [facility] Donell Hernandez, Diabetes mellitus type 2, un controlled; [facility] History of renal transplant; Drive [facility] S/P bilateral BKA (below kne e amputation); [place] [address] Obesity [phone] END[address] DEPT. 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:no flu shot :yes pneumovax: 2012 [...] Rojas MD [facility] Neurology [place], [place] [phone] (Wo rk) 06/29/2022 Appointment Cardiology Violetta Sanford M D [facility] [address] [place] [address] (Wo rk) 06/30/2022 Infusion Hematology and Oncology 07/14/2022 Infusion Hematology and Oncology 07/28/2022 Infusion Hematology and Oncology 08/11/2022 Infusion Hematology and Oncology 08/16/2022 Office Visit Audiology Mindy Moody AUD ONE [facility] AUDIOLOGY DEPT [place], [place] [address] (Wo rk) 11/04/2022 Office Visit Rheumatology Dante Freedman PA [facility] RHEUMATOLOGY [place], [place] [address] (Wo rk) Scheduled Orders Name Type Priority Associated Diagnoses Order S chedule Creatinine Lab STAT Diabetes mellitus type 2, Ex pected: 10/08/2015 uncontrolled (Approximate), Expires: 06/30/2016 Hemoglobin A1c Lab STAT Diabetes mellitus type 2, Expected: 10/08/2015 uncontrolled (Approximate), Expires: 06/30/2016 documented as of this encounter Results TSH (12/02/2015 10:02 AM EDT) athologist Signature TSH 1.44 0.27 - 4.20 JERE GARRISON mcIU/mL [facility] Specimen Anatomical Collection Method Collection Time Receive d Time (Source) Location / / Volume Laterality Blood specimen 12/02/2015 10:02 6 (specimen) AM EDT 10:15 AM EDT Resulting Agency Comment Spec In Lab Donell Hernandez MD CHEMISTRY ORDERABLES Performing Organization Address City/State/[place] [address] (ABNORMAL) Creatinine (12/02/2015 10:02 AM EDT) athologist Signature Creatinine 2.17 (H) 0.80 - JERE GARRISON 1.50 mg/dL [facility] Comment: Please note that the pediatric reference intervals supplied above were not validated at [facility]. Results from pediatri c patients should be interpreted in conjunction to the patient's age, height and muscle mass. Estimated GFR 31 (L) >=60 [facility] Comment: This estimated GFR (eGFR) value [...] the following links into your internet browser. [email or web address] [email or web address] Specimen Anatomical Collection Method Collection Time Receive d Time (Source) Location / / Volume Laterality Blood specimen 12/02/2015 10:02 6 (specimen) AM EDT 10:15 AM EDT Resulting Agency Comment Spec In Lab Donell Hernandez MD CHEMISTRY ORDERABLES Performing Organization Address City/State/[place] [address] (ABNORMAL) Hemoglobin A1c (12/02/2015 10:02 AM EDT) Analysis Performed At Patho logist Time Signature Hemoglobin A1C 7.9 (H) 4.3 - 5.6 [facility] [...] Mellitus, Diabetes Care 2013; 36: Suppl. 1, S67-24 Est Avg Gluc 180 mg/dL [facility] Comment: eAG equivalents for HbA1c percentages: HbA1c(%) ?eAG(mg/dL) 6.0 ?126 6.5 ?140 7.0 ?154 7.5 ?169 8.0 ?183 8.5 ?197 9.0 ?212 9.5 ?226 10.0 ? 240 Limitations: The eAG calculation has not been validated on women, individuals below 18 years old and above 70 years old, and individuals with hemoglobinopathies. Additional resources are available on [facility] website: [email or web address] – HOLLISadacalc Scooby MALDONADO, Nba J, Sydnee R, et al. ??Tr anslating the A1C assay into estimated average glucose values. ??Diabetes Care 2008:31(8):2097-0286. Specimen Anatomical Collection Method Collection Time Receive d Time (Source) Location / / Volume Laterality Blood specimen 12/02/2015 10:02 6 (specimen) AM EDT 10:15 AM EDT Resulting Agency Comment Spec In Lab Donell Hernandez MD CHEMISTRY ORDERABLES Performing Organization Address City/State/[place] [address] documented in this encounter Visit Diagnoses Diagnosis Diabetes mellitus type 2, uncontrolled Type II or unspecified type diabetes fredo litus without mention of complication, uncontrolled History of renal transplant Kidney replaced by transplant S/P bilateral BKA (below knee amputation ) Lower limb amputation, below knee Obesity Obesity, unspecified documented in this encounter Care Teams Consultative Sales Associate Relationship Specialty Start Date End Date Violetta Sanford MD PCP - General 04/02/14 [address] [place] [address] documented as of this encounter
--- OUTSIDE RECORDS SUMMARY | 2022-06-16 12:29 | XMS_ITS | Encounter Summary ---
:1955 Author Organization [facility] [place] [address] Care Team Providers Name Role Phone Violetta Sanford MD Primary Care Provider Reason for Visit Reason Onset Date Comments Medication Refill 04/08/2016 Encounter Details Date Type Department Care Team Description 04/08/2016 [place] [address] Social History Tobacco Use Types Packs/Day Years [...] Rojas MD [facility] Neurology [place], [place] [phone] (Wo rk) 06/29/2022 Appointment Cardiology Violetta Sanford M D [address] [place] [address] (Wo rk) 06/30/2022 Infusion Hematology and Oncology 07/14/2022 Infusion Hematology and Oncology 07/28/2022 Infusion Hematology and Oncology 08/11/2022 Infusion Hematology and Oncology 08/16/2022 Office Visit Audiology Mindy Moody AUD ONE [facility] AUDIOLOGY [place], [place] [address] (Wo rk) 11/04/2022 Office Visit Rheumatology Dante Freedman PA [facility] RHEUMATOLOGY [place], [place] [address] (Wo rk) documented as of this encounter Visit Diagnoses Diagnosis Transplanted kidney Kidney replaced by transplant documented in this encounter Care Teams Graduate Engineer Relationship Specialty Start Date End Date Violetta Sanford MD PCP - General 04/02/14 [address] [place] [address] documented as of this encounter
--- OUTSIDE RECORDS SUMMARY | 2022-06-16 12:29 | XMS_ITS | Encounter Summary ---
:1955 Author Organization [facility] [place] [address] Care Team Providers Name Role Phone Violetta Sanford MD Primary Care Provider Encounter Details Date Type Department Care Team Description 02/03/2017 Refill Solid Organ Transplant Lynda Pyle, [place] [address] Social History Tobacco Use Types Packs/Day [...] PM EDT Wants all meds sent to [facility] pharmacy Has one week of meds I [...] his V Pharm Medicaid through the state [place]. He was told to call Awa about gettinghis meds through - Pharmacy. He said it as getting them paid through Pharmacy. documented in this encounter Plan of Treatment Upcoming Encounters Date Type Specialty Care Team Description 06/16/2022 Infusion Hematology and Oncology 06/21/2022 Office Visit Neurology Tyler Rojas MD [facility] Neurology [place], [place] [phone] (Wo rk) 06/29/2022 Appointment Cardiology Violetta Sanford M D [address] [place], [place] [address] (Wo rk) 06/30/2022 Infusion Hematology and Oncology 07/14/2022 Infusion Hematology and Oncology 07/28/2022 Infusion Hematology and Oncology 08/11/2022 Infusion Hematology and Oncology 08/16/2022 Office Visit Audiology Mindy Moody AUD [facility] AUDIOLOGY [place], [place] [address] (Wo rk) 11/04/2022 Office Visit Rheumatology Dante Freedman PA [facility] RHEUMATOLOGY [place], [place] [address] (Wo rk) documented as of this encounter Visit Diagnoses Diagnosis Transplanted kidney Kidney replaced by transplant documented in this encounter Care Teams Pineapple Plantation Manager Relationship Specialty Start Date End Date Violetta Sanford MD PCP - General 04/02/14 [address] [place], [place] [address] documented as of this encounter
--- OUTSIDE RECORDS SUMMARY | 2022-06-16 12:29 | XMS_ITS | Encounter Summary ---
:1955 Author Organization [place] [address] Care Team Providers Name Role Phone Violetta Sanford MD Primary Care Provider Encounter Details Date Type Department Care Team Description 01/05/2016 Laboratory Appointment Lab 3L Sylvia Allison Kidney replaced by [facility] [place] [phone] Social History Tobacco Use Types Packs/Day Years [...] Rojas MD [facility] Neurology [place] [phone] (Wo rk) 06/29/2022 Appointment Cardiology Violetta Sanford M D [facility] [address] [place], [place] [address] (Wo rk) 06/30/2022 Infusion Hematology and Oncology 07/14/2022 Infusion Hematology and Oncology 07/28/2022 Infusion Hematology and Oncology 08/11/2022 Infusion Hematology and Oncology 08/16/2022 Office Visit Audiology Mindy Moody AUD [facility] AUDIOLOGY DEPT [place], [place] [address] (Wo rk) 11/04/2022 Office Visit Rheumatology Dante Freedman PA [facility] RHEUMATOLOGY [place], [place] [address] (Wo rk) documented as of [...] P athologist Signature Neutrophils % 61.1 % [facility] Neutr Abs (ANC) 4.45 1.50 - [facility] 6.30 [facility] x10(3)/[facility] LABORATORY Lymphocytes % 28.9 % [facility] Lymphocytes Abs 2.1 1.0 - 3.6 [facility] x10(3)/[facility] LABORATORY Monocytes % 6.2 % [facility] Monocyte Abs 0.4 0.2 - 1.0 [facility] x10(3)/[facility] LABORATORY Eosinophils % 3.3 % [facility] Eosinophils Abs 0.2 0.0 - 0.5 [facility] x10(3)/[facility] LABORATORY Basophils % 0.4 % [facility] Basophils Abs 0.0 0.0 - 0.2 [facility] x10(3)/[facility] LABORATORY Immature Gran % 0.10 % [facility] Comment: Immature granulocytes(IG's)percentage an d absolute count will include metamyelocytes, myelocytes, and promyelo cytes. Blood smears from CBCs yielding IG's will be scanned manually for concor dance. If this scan disagrees with the automated IG or if promyelocytes are not ed, a manual differential will be performed. Courtney Gran Abs 0.01 0.00 - 0.05 x10(3)/[facility] Y [facility] LABORATORY Specimen Anatomical Collection Method Collection Time Receive d Time (Source) Location / / Volume Laterality Blood specimen 01/05/2016 10:05 6 (specimen) AM EDT 10:21 AM EDT Resulting Agency Comment Spec In Lab Alejo Garnett MD HEMATOLOGY ORDERABLES Performing Organization Address City/State/[place] [address] (ABNORMAL) Hemogram (01/05/2016 10:05 AM EDT) P athologist Signature WBC 7.3 4.0 - 10.0 [facility] x10(3)/[facility] LABORATORY RBC 4.20 (L) 4.63 - [facility] 6.08 [facility] x10(6)/[facility] LABORATORY Hemoglobin 13.0 (L) 13.7 - [facility] 17.5 gm/dL [facility]ORY Hematocrit 40.9 40.0 - [facility] 51.0 % [facility] LABORATORY MCV 97.4 (H) 79.0 - [facility] 92.0 [facility] LABORATORY MCH 31.0 25.6 - [facility].2 pg [facility] MCHC 31.8 (L) 32.0 - [facility] 36.5 gm/dL [facility] Platelets 158 145 - 370 [facility] x10(3)/[facility] LABORATORY RDWSD 51.3 (H) 35.0 - [facility] 46.0 [facility] LABORATORY RDWCV 14.6 (H) 10.9 - [facility] 14.4 % [facility] LABORATORY MPV 9.2 9.0 - 12.0 [facility] LABORATORY Specimen Anatomical Collection Method Collection Time Receive d Time (Source) Location / / Volume Laterality Blood specimen 01/05/2016 10:05 6 (specimen) AM EDT 10:21 AM EDT Resulting Agency Comment Spec In Lab Alejo Garnett MD HEMATOLOGY ORDERABLES Performing Organization Address City/State/[place] [address] (ABNORMAL) Comprehensive metabolic panel (non-fasting) (01/05/2016 10:05 AM EDT) athologist Signature Glucose Lvl 328 (H) 65 - 199 [facility] mg/dL [facility] Comment: Diabetes: >=200 mg/dL plus symp toms BUN 31 (H) 10 - 20 mg/dL [facility] Creatinine 1.81 (H) 0.80 - 1.50 mg/dL [facility] Comment: Please note that the pediatric reference intervals supplied above were not validated at [facility]. Results from pediatri c patients should be interpreted in conjunction to the patient's age, height and muscle mass. Sodium 135 135 - 145 mmol/L [facility] Potassium 5.0 3.5 - 5.0 mmol/L [facility] Comment: Please note: ??Patients with WBC >100,00 0 may have falsely elevated Potassium levels. ??For accurate Potassium quantif ication in these patients send serum separator tube (gold top) for subsequent determinations. ??Contact the Clinical Chemistry Laboratory if there are any qu estions. Chloride 100 98 - 107 mmol/L [facility] CO2 21 (L) 22 - 31 mmol/L [facility] Anion Gap 14 5 - 15 mmol/L [facility] Calcium 9.5 8.5 - 10.5 mg/dL [facility] Total Protein 8.2 (H) 6.1 - 8.0 gm/dL [facility] Albumin 3.6 3.2 - 5.2 gm/dL [facility] AST 14 0 - 39 unit/L [facility] ALT 27 0 - 55 unit/L [facility] Alk Phos 131 (H) 40 - 120 unit/L [facility] Total Bilirubin 0.4 0.2 - 1.3 mg/dL [facility] Bili, Direct 0.1 0.0 - 0.3 mg/dL [facility] Estimated GFR 38 (L) >=60 [facility] Comment: This estimated GFR (eGFR) [...] the following links into your internet browser. [email or web address] [email or web address]/DHMCnkf Specimen Anatomical Collection Method Collection Time Receive d Time (Source) Location / / Volume Laterality Blood specimen 01/05/2016 10:05 6 (specimen) AM EDT 10:21 AM EDT Resulting Agency Comment Spec In Lab Alejo Garnett MD CHEMISTRY ORDERABLES Performing Organization Address City/State/[place] [address] (ABNORMAL) Magnesium (01/05/2016 10:05 AM EDT) P athologist Signature Magnesium 0.65 (L) 0.69 - 1.07 [facility] mmol/L [facility]OR[facility]ORY Specimen Anatomical Collection Method Collection Time Receive d Time (Source) Location / / Volume Laterality Blood specimen 01/05/2016 10:05 6 (specimen) AM EDT 10:21 AM EDT Resulting Agency Comment Spec In Lab Alejo Garnett MD CHEMISTRY ORDERABLES Performing Organization Address City/State/ZIP Code Phon e Number [address] Phosphorus (01/05/2016 10:05 AM EDT) P athologist Signature Phosphorus 3.3 2.5 - 4.5 [facility] mg/dL [facility] Specimen Anatomical Collection Method Collection Time Receive d Time (Source) Location / / Volume Laterality Blood specimen 01/05/2016 10:05 6 (specimen) AM EDT 10:21 AM EDT Resulting Agency Comment Spec In Lab Alejo Garnett MD CHEMISTRY ORDERABLES Performing Organization Address City/State/ZIP Code Phon e Number [address] Uric acid (01/05/2016 10:05 AM EDT) P athologist Signature Uric Acid 7.3 3.5 - 8.5 [facility] mg/dL [facility] Specimen Anatomical Collection Method Collection Time Receive d Time (Source) Location / / Volume Laterality Blood specimen 01/05/2016 10:05 6 (specimen) AM EDT 10:21 AM EDT Resulting Agency Comment Spec In Lab Alejo Garnett MD CHEMISTRY ORDERABLES Performing Organization Address City/State/ZIP Code Phon e Number [address] Tacrolimus level (01/05/2016 10:05 AM EDT) P athologist Signature Tacrolimus Lvl 5.1 ng/mL [facility] Comment: Trough therapeutic: 5-15 ng/mL Specimen Anatomical Collection Method Collection Time Receive d Time (Source) Location / / Volume Laterality Blood specimen 01/05/2016 10:05 6 (specimen) AM EDT 11:42 AM EDT Resulting Agency Comment Spec In Lab Alejo Garnett MD CHEMISTRY ORDERABLES Performing Organization Address [facility]/ZIP [facility] [place] [address] (ABNORMAL) Reticulocyte Count (01/05/2016 10:05 AM EDT) Patholo gist Method Time Signature Retic Ct % 3.0 (H) 0.5 - 2.4 [facility] LABORATORY Retic Ct Abs 0.130 (H) 0.027 - [facility] 0.095 [facility] x10(6)/[facility] LABORATORY Immature Retic% 19.9 (H) 2.3 - [facility] 15.9 % [facility] LABORATORY Reticulated Hgb 32.9 28.5 - [facility] 38.[address] [facility] LABORATORY Plat Immature % 1.0 0.0 - 7.4 [facility] LABORATORY Specimen Anatomical Collection Method Collection Time Receive d Time (Source) Location / / Volume Laterality Blood specimen 01/05/2016 10:05 6 (specimen) AM EDT 10:21 AM EDT Resulting Agency Comment Spec In Lab Alejo Garnett MD HEMATOLOGY ORDERABLES Performing Organization Address City/[facility] [place] [address] Cholesterol, total (01/05/2016 10:05 AM EDT) P athologist Signature Chol, Total 130 <=199 mg/dL [facility] Comment: Recommendations of the NCEP Adult Treatm ent Panel for the following risk cutoff thresholds for the [place] populatio n: Desirable: <200 mg/dL Borderline High: 200-239 mg/dL High: > or = 240 mg/dL Specimen Anatomical Collection Method Collection Time Receive d Time (Source) Location / / Volume Laterality Blood specimen 01/05/2016 10:05 6 (specimen) AM EDT 10:21 AM EDT Resulting Agency Comment Spec In Lab Alejo Garnett MD CHEMISTRY ORDERABLES Performing Organization Address City/State/[place] [address] documented in this encounter Visit Diagnoses Diagnosis Kidney replaced by transplant documented in this encounter Care Teams Food And Beverage Attendant Relationship Specialty Start Date End Date Violetta Sanford MD PCP - General 04/02/14 [address] [place] [address] documented as of this encounter
--- OUTSIDE RECORDS SUMMARY | 2022-06-16 12:29 | XMS_ITS | Encounter Summary ---
:1955 Author Organization [facility] [place] [address] Care Team Providers Name Role Phone Violetta Sanford MD Primary Care Provider Encounter Details Date Type Department Care Team Description 02/11/2017 Telephone Solid Organ Transpla nt at [facility] [place] [phone] Social History Tobacco Use Types Packs/Day [...] Marcelino MSW - 02/11/2017 8:51 AM EDT ADDIE called pt and spoke to his spouse. [...] Tyler Rojas MD [facility] Neurology [place], [place] [phone] (Wo rk) 06/29/2022 Appointment Cardiology Violetta Sanford M D [address] [place] [address] (Wo rk) 06/30/2022 Infusion Hematology and Oncology 07/14/2022 Infusion Hematology and Oncology 07/28/2022 Infusion Hematology and Oncology 08/11/2022 Infusion Hematology and Oncology 08/16/2022 Office Visit Audiology Mindy Moody AUD [facility] AUDIOLOGY DEPT [place], [place] [address] (Wo rk) 11/04/2022 Office Visit Rheumatology Dante Freedman PA [facility] RHEUMATOLOGY [place], [place] [address] (Wo rk) documented as of this encounter Visit Diagnoses Not on filedocumented in this encounter Care Teams Gusset Folder Relationship Specialty Start Date End Date Violetta Sanford MD PCP - General 04/02/14 [address] [place], [place] [address] documented as of this encounter
--- OUTSIDE RECORDS SUMMARY | 2022-06-16 12:29 | XMS_ITS | Encounter Summary ---
:1955 Author Organization [facility] [place] [address] Care Team Providers Name Role Phone Violetta Sanford MD Primary Care Provider Encounter Details Date Type Department Care Team Description 01/11/2017 Notes Only Solid Organ Transpla nt at [facility] [place] [phone] Social History Tobacco Use Types Packs/Day Years Used Date Smoking Tobacco: Former Cigarettes 2 20 Quit : 01/19/1993 Smokeless Tobacco: Never Alcohol Use Standard Drinks/Week Comments Yes 0 (1 standard drink = 0.6 oz pure alcoho l) rare Sex Assigned at Date Recorded Not on file documented as of this encounter Progress Notes Awa Calderon - 01/11/2017 10:35 AM EDT Leroy Torres [address] [place] [phone] January 11, 2017 ID: [id number] PRIOR AUTH Review for Progra[employer]: On behalf [...] in maintaining the patient on the same artificial cherry maker of Tacrolimus, or that the patient will be able to have any control over which artificial cherry maker of Tacrolimus is purchased by their pharmacy, [...] Alejo Garnett M.D. Director of Medical Transplantation [facility] Nicky Pyle CMA - 01/11/2017 10:35 AM EDT Received faxed request from [employer] requesting further information. I printed the previous progress note, completed the paperwork and faxed back to [phone] Nicky Pyle CMA - 01/11/2017 10:35 AM EDT APPROVED UNDER PART B THROUGH 07/24/2017 documented in this encounter Plan of Treatment Upcoming Encounters Date Type Specialty Care Team Description 06/16/2022 Infusion Hematology and Oncology 06/21/2022 Office Visit Neurology Tyler Rojas MD [facility] Neurology [place], [place] [phone] (Wo rk) 06/29/2022 Appointment Cardiology Violetta Sanford M D [address] [place], [place] [address] (Wo rk) 06/30/2022 Infusion Hematology and Oncology 07/14/2022 Infusion Hematology and Oncology 07/28/2022 Infusion Hematology and Oncology 08/11/2022 Infusion Hematology and Oncology 08/16/2022 Office Visit Audiology Mindy Moody AUD [facility] AUDIOLOGY [place], [place] 0[address] (Wo rk) 11/04/2022 Office Visit Rheumatology Dante Freedman PA [facility] RHEUMATOLOGY [place], [place] 0[address] (Wo rk) documented as of this encounter Visit Diagnoses Not on filedocumented in this encounter Care Teams Clinical Social Work Aide Relationship Specialty Start Date End Date Violetta Sanford MD PCP - General 04/02/14 [address] [place], [place] [address] documented as of this encounter
--- OUTSIDE RECORDS SUMMARY | 2022-06-16 12:29 | XMS_ITS | Encounter Summary ---
:1955 Author Organization [facility] [place] [address] Care Team Providers Name Role Phone Violetta Sanford MD Primary Care Provider Encounter Details Date Type Department Care Team Description 12/02/2015 Laboratory Appointment Lab 3L Sylvia Dove elizabeth mellitus type [address] [phone] Social History Tobacco Use Types Packs/Day Years [...] Tyler Rojas MD [facility] Neurology [place], [place] [phone] (Wo rk) 06/29/2022 Appointment Cardiology Violetta Sanford M D [address] [place] [address] [address] [place], [place] [phone] (Oscar rk) 06/30/2022 Infusion Hematology and Oncology 07/14/2022 Infusion Hematology and Oncology 07/28/2022 Infusion Hematology and Oncology 08/11/2022 Infusion Hematology and Oncology 08/16/2022 Office Visit Audiology Mindy Moody, [facility] AUDIOLOGY DEPT [place], [place] [address] (Wo rk) 11/04/2022 Office Visit Rheumatology Dante Freedman PA [facility] RHEUMATOLOGY [place], [place] [address] (Wo rk) documented as [...] Signature TSH 1.44 0.27 - 4.20 SYLVIA GARRISON mcIU/mL [facility] Specimen Anatomical Collection Method Collection Time Receive d Time (Source) Location / / Volume Laterality Blood specimen 12/02/2015 10:02 6 (specimen) AM EDT 10:15 AM EDT Resulting Agency Comment Spec In Lab Donell Hernandez MD CHEMISTRY ORDERABLES Performing Organization Address City/State/ZIP Code Phon e [place] [address] (ABNORMAL) Creatinine (12/02/2015 10:02 AM EDT) athologist Signature Creatinine 2.17 (H) 0.80 - SYLVIA GARRISON 1.50 mg/dL [facility] Comment: Please note that the pediatric reference intervals supplied above were not validated at [facility]. Results from pediatri c patients should be interpreted in conjunction to the patient's age, height and muscle mass. Estimated GFR 31 (L) >=60 SYLVIA Ramirez [facility] Comment: This estimated GFR (eGFR) value [...] the following links into your internet browser. [email or web address]/DHnkdep [email or web address]/DHMCnkf Specimen Anatomical Collection Method Collection Time Receive d Time (Source) Location / / Volume Laterality Blood specimen 12/02/2015 10:02 6 (specimen) AM EDT 10:15 AM EDT Resulting Agency Comment Spec In Lab Donell Hernandez MD CHEMISTRY ORDERABLES Performing Organization Address City/State/[place] [address] (ABNORMAL) Hemoglobin A1c (12/02/2015 10:02 AM EDT) Analysis Performed At Patho logist Time Signature Hemoglobin A1C 7.9 (H) 4.3 - 5.6 [facility] [...] 1, S67-74 Est Avg Gluc 180 mg/dL [facility] Comment: eAG equivalents for HbA1c percentages: HbA1c(%) ?eAG(mg/dL) 6.0 ?126 6.5 ?140 7.0 ?154 7.5 ?169 8.0 ?183 8.5 ?197 9.0 ?212 9.5 ?226 10.0 ? 240 Limitations: The eAG calculation has not been validated on women, individuals below 18 years old and above 70 years old, and individuals with hemoglobinopathies. Additional resources are available on ADA website: http://[employer]/DHMCadacalc Scooby MALDONADO, Nba J, Sydnee R, et al. ??Tr anslating the A1C assay into estimated average glucose values. ??Diabetes Care 2008:31(8):6168-6991. Specimen Anatomical Collection Method Collection Time Receive d Time (Source) Location / / Volume Laterality Blood specimen 12/02/2015 10:02 6 (specimen) AM EDT 10:15 AM EDT Resulting Agency Comment Spec In Lab Donell Hernandez MD CHEMISTRY ORDERABLES Performing Organization Address City/State/[place] [address] documented in this encounter Visit Diagnoses Diagnosis Diabetes mellitus type 2, uncontrolled Type II or unspecified type diabetes fredo litus without mention of complication, uncontrolled documented in this encounter Care Teams Manager Strategic Alliances Relationship Specialty Start Date End Date Violetta Sanford MD PCP - General 04/02/14 [address] [place] [address] documented as of this encounter
--- OUTSIDE RECORDS SUMMARY | 2022-06-16 12:29 | XMS_ITS | Encounter Summary ---
:1955 Author Organization [facility] Address [facility] [place] [address] Care Team Providers Name Role Phone Violetta Sanford MD Primary Care Provider Encounter Details Date Type Department Care Team Description 05/07/2015 Office Visit Neurology at [facility] Angel Boyd, Type 2 diabetes [facility] MD mellitus with diabetic Drive [facility] [place] [address] NEUROLOGY DEPT. [phone] [place], [place] [address] Social History Tobacco Use Types [...] and had a samia driving tour around [place] and [facility] following that. He is working hard at [...] Tyler Rojas MD [facility] Neurology [place], [place] [phone] (Wo rk) 06/29/2022 Appointment Cardiology Violetta Sanford M D [address] [place] [address] (Wo rk) 06/30/2022 Infusion Hematology and Oncology 07/14/2022 Infusion Hematology and Oncology 07/28/2022 Infusion Hematology and Oncology 08/11/2022 Infusion Hematology and Oncology 08/16/2022 Office Visit Audiology Mindy Moody AUD [facility] AUDIOLOGY DEPT [place], [place] [address] (Wo rk) 11/04/2022 Office Visit Rheumatology Dante Freedman PA [facility] RHEUMATOLOGY [place], [place] [address] (Wo rk) documented as of this encounter Visit Diagnoses Diagnosis 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
--- OUTSIDE RECORDS SUMMARY | 2022-06-16 12:29 | XMS_ITS | Encounter Summary ---
:1955 Author Organization [place] [address] Care Team Providers Name Role Phone Violetta Sanford MD Primary Care Provider Reason for Visit Reason Comments Other Encounter Details Date Type Department Care Team Description 07/10/2015 Telephone Solid Organ Transpla nt at [facility] [place] [phone] Social History Tobacco Use Types Packs/Day Years [...] he needs to support his application for [facility]. I advised I will mail another copy to him. I offered to email it but he stated that he can't print it. Copy of letter mailed today. documented in this encounter Plan of Treatment Upcoming Encounters Date Type Specialty Care Team Description 06/16/2022 Infusion Hematology and Oncology 06/21/2022 Office Visit Neurology Tyler Rojas MD [facility] Neurology [place], [place] [phone] (Wo rk) 06/29/2022 Appointment Cardiology Violetta Sanford M D [address] [place], [place] [id number] (Wo rk) 06/30/2022 Infusion Hematology and Oncology 07/14/2022 Infusion Hematology and Oncology 07/28/2022 Infusion Hematology and Oncology 08/11/2022 Infusion Hematology and Oncology 08/16/2022 Office Visit Audiology Mindy Moody AUD [facility] AUDIOLOGY [place], [place] [address] (Wo rk) 11/04/2022 Office Visit Rheumatology Dante Freedman PA [facility] RHEUMATOLOGY [place], [place] [address] (Wo rk) documented as of this encounter Visit Diagnoses Not on filedocumented in this encounter Care Teams Manager Housekeeping Relationship Specialty Start Date End Date Violetta Sanford MD PCP - General 04/02/14 [address] [place], [place] [id number] documented as of this encounter
--- OUTSIDE RECORDS SUMMARY | 2022-06-16 12:29 | XMS_ITS | Encounter Summary ---
:1955 Author Organization [facility] [place] [address] Care Team Providers Name Role Phone Violetta Sanford MD Primary Care Provider Encounter Details Date Type Department Care Team Description 06/08/2016 Laboratory Appointment Lab at [facility] DM type 2 [place] [id number] Social History Tobacco Use Types Packs/Day Years [...] Rojas MD [facility] Neurology [place] [phone] (Wo rk) 06/29/2022 Appointment Cardiology Violetta Sanford M D [address] [place], [place] [address] (Oscar rk) 06/30/2022 Infusion Hematology and Oncology 07/14/2022 Infusion Hematology and Oncology 07/28/2022 Infusion Hematology and Oncology 08/11/2022 Infusion Hematology and Oncology 08/16/2022 Office Visit Audiology Mindy Moody AUD [facility] AUDIOLOGY DEPT [place], [place] [address] (Wo rk) 11/04/2022 Office Visit Rheumatology Dante Freedman PA [facility] RHEUMATOLOGY [place], [place] [address] (Wo rk) documented as of [...] athologist Signature TSH 1.81 0.27 - 4.20 [facility] mcIU/mL [facility] Specimen Anatomical Collection Method Collection Time Receive d Time (Source) Location / / Volume Laterality Blood specimen 06/08/2016 10:10 6 (specimen) AM EST 10:28 AM EST Resulting Agency Comment Spec In Lab Donell Hernandez MD CHEMISTRY ORDERABLES Performing Organization Address City/State/[place] [address] (ABNORMAL) Hemoglobin A1c (06/08/2016 10:10 AM EST) Analysis Performed At Patho logist Time Signature Hemoglobin A1C 8.8 (H) 4.3 - 5.6 [facility] [...] 1, S67-74 Est Avg Gluc 206 mg/dL JERE GARRISON [facility] Comment: eAG equivalents for HbA1c percentages: HbA1c(%) ?eAG(mg/dL) 6.0 ?126 6.5 ?140 7.0 ?154 7.5 ?169 8.0 ?183 8.5 ?197 9.0 ?212 9.5 ?226 10.0 ? 240 Limitations: The eAG calculation has not been validated on women, individuals below 18 years old and above 70 years old, and individuals with hemoglobinopathies. Additional resources are available on [facility] website: [email or web address]/[facility]LL[facility]alc Scooby MALDONADO, Nba J, Sydnee R, et al. ??Tr anslating the A1C assay into estimated average glucose values. ??Diabetes Care 2008:31(8):7352-3586. Specimen Anatomical Collection Method Collection Time Receive d Time (Source) Location / / Volume Laterality Blood specimen 06/08/2016 10:10 6 (specimen) AM EST 10:28 AM EST Resulting Agency Comment Spec In Lab Donell Hernandez MD CHEMISTRY ORDERABLES Performing Organization Address City/State/ZIP Code Ph[place] [address] (ABNORMAL) Creatinine (06/08/2016 10:10 AM EST) athologist Signature Creatinine 1.77 (H) 0.80 - JERE GARRISON 1.50 mg/dL [facility] Comment: Please note that the pediatric reference intervals supplied above were not validated at [facility]. Results from pediatri c patients should be interpreted in conjunction to the patient's age, height and muscle mass. Estimated GFR 39 (L) >=60 JERE Ramirez [facility] Comment: This estimated GFR (eGFR) [...] the following links into your internet browser. http://[employer]/DHnkdep http://[employer]/[facility] PUR[facility]LLnkf Specimen Anatomical Collection Method Collection Time Receive d Time (Source) Location / / Volume Laterality Blood specimen 06/08/2016 10:10 6 (specimen) AM EST 10:28 AM EST Resulting Agency Comment Spec In Lab Donell Hernandez MD CHEMISTRY ORDERABLES Performing Organization Address City/State/[place] [address] documented in this encounter Visit Diagnoses Diagnosis DM type 2 causing complication Type II or unspecified type diabetes fredo litus with unspecified complication, not stated as uncontrolled documented in this encounter Care Teams Spline Rolling Machine Job Setter Relationship Specialty Start Date End Date Violetta Sanfodr MD PCP - General 04/02/14 [address] [place] [address] documented as of this encounter
--- OUTSIDE RECORDS SUMMARY | 2022-06-16 12:29 | XMS_ITS | Encounter Summary ---
:1955 Author Organization [facility] [place] [address] Care Team Providers Name Role Phone Violetta Sanford MD Primary Care Provider Encounter Details Date Type Department Care Team Description 08/06/2016 Laboratory Appointment Lab 3L Sylvia Allison Kidney replaced by [facility] [place] [phone] Social History Tobacco Use Types Packs/Day Years [...] MD [facility] Neurology [place] [phone] (Wo rk) 06/29/2022 Appointment Cardiology Violetta Sanford M D [facility] [address] [place], [place] [address] (Wo rk) 06/30/2022 Infusion Hematology and Oncology 07/14/2022 Infusion Hematology and Oncology 07/28/2022 Infusion Hematology and Oncology 08/11/2022 Infusion Hematology and Oncology 08/16/2022 Office Visit Audiology Mindy Moody AUD [facility] AUDIOLOGY DEPT [place], [place] [address] (Wo rk) 11/04/2022 Office Visit Rheumatology Dante Freedman PA [facility] RHEUMATOLOGY [place], [place] [address] (Wo rk) documented as of [...] Hemoglobin A1C 9.4 (H) 4.3 - 5.6 [facility] [...] 1, S67-74 Est Avg Gluc 223 mg/dL [facility] Comment: eAG equivalents for HbA1c percentages: HbA1c(%) ?eAG(mg/dL) 6.0 ?126 6.5 ?140 7.0 ?154 7.5 ?169 8.0 ?183 8.5 ?197 9.0 ?212 9.5 ?226 10.0 ? 240 Limitations: The eAG calculation has not been validated on women, individuals below 18 years old and above 70 years old, and individuals with hemoglobinopathies. Additional resources are available on [facility] website: http://[employer]/DHMCadacalc Scooby MALDONADO, Nba Gilbert, Sydnee R, et al. ??Tr anslating the A1C assay into estimated average glucose values. ??Diabetes Care 2008:31(8):4115-0251. Specimen Anatomical Collection Method Collection Time Receive d Time (Source) Location / / Volume Laterality Blood specimen Venous Draw / 08/06/2016 7:41 AM 2016 4:13 (specimen) Unknown EST PM EST Resulting Agency Comment Spec In Lab Alejo Garnett MD CHEMISTRY ORDERABLES Performing Organization Address City/State/ZIP Code Phon e Number [facility] [place] [address] Differential, Automated (08/06/2016 7:41 AM EST) P athologist Signature Neutrophils % 52.6 % [facility] Neutr Abs (ANC) 3.84 1.70 - [facility] 6.10 [facility] x10(3)/[facility] LABORATORY Lymphocytes % 32.1 % [facility] LABOR[facility]ORY Lymphocytes Abs 2.4 0.9 - 3.2 [facility] x10(3)/[facility] LABORATORY Monocytes % 9.7 % [facility] LABOR[facility]ORY Monocyte Abs 0.7 0.3 - 0.9 [facility] x10(3)/[facility] LABORATORY Eosinophils % 4.5 % [facility] LAB[facility]ORY Eosinophils Abs 0.3 0.0 - 0.4 [facility] x10(3)/[facility] LABORATORY Basophils % 1.0 % [facility] LAB[facility]ORY Basophils Abs 0.1 0.0 - 0.1 [facility] x10(3)/[facility] LABORATORY Immature Gran % 0.10 % [facility] Comment: Immature granulocytes(IG's)percentage an d absolute count will include metamyelocytes, myelocytes, and promyelo cytes. Blood smears from CBCs yielding IG's will be scanned manually for concor dance. If this scan disagrees with the automated IG or if promyelocytes are not ed, a manual differential will be performed. Courtney Gran Abs 0.01 0.00 - 0.04 x10(3)/[facility] Y [facility]ORY Specimen Anatomical Collection Method Collection Time Receive d Time (Source) Location / / Volume Laterality Blood specimen 08/06/2016 7:41 AM 017 7:44 (specimen) EST AM EST Resulting Agency Comment Spec In Lab Alejo Garnett MD HEMATOLOGY ORDERABLES Performing Organization Address City/State/[place] [address] (ABNORMAL) Hemogram (08/06/2016 7:41 AM EST) Analysis Performed At Patho logist Time Signature WBC 7.3 4.0 - 9.5 [facility] x10(3)/[facility] LABORATORY RBC 3.97 (L) 4.58 - SYLVIA ALLISON 5.54 [facility] x10(6)/[facility] LABORATORY Hemoglobin 12.2 (L) 13.7 - [facility] 16.5 gm/dL [facility] LABORATORY Hematocrit 37.7 (L) 40.5 - [facility] 48.5 % [facility] LABORATORY MCV 95.0 (H) 82.9 - [facility] 93.1 [facility] LABORATORY MCH 30.7 27.5 - [facility] 32.1 pg [facility] LABORATORY MCHC 32.4 32.0 - [facility] 35.7 gm/dL [facility] LABOR[facility]ORY Platelets 233 145 - 357 [facility] x10(3)/[facility] LABORATORY RDWSD 44.8 36.0 - [facility] 45.0 [facility] LABORATORY RDWCV 12.9 11.4 - [facility] 13.8 % [facility] LABORATORY MPV 8.6 7.6 - 12.9 [facility] LABORATORY nRBC % Auto 0.0 % [facility] LABORATORY nRBC Abs Auto 0.000 0.000 - [facility] 0.000 [facility] x10(3)/[facility] LABORATORY Specimen Anatomical Collection Method Collection Time Receive d Time (Source) Location / / Volume Laterality Blood specimen 08/06/2016 7:41 AM 017 7:44 (specimen) EST AM EST Resulting Agency Comment Spec In Lab Alejo Garnett MD HEMATOLOGY ORDERABLES Performing Organization Address City/State/ZIP Code Phon e Number [place] [id number] [address] Phosphorus (08/06/2016 7:41 AM EST) P athologist Signature Phosphorus 3.8 2.5 - 4.5 [facility] mg/dL [facility] LABOR[facility]ORY Specimen Anatomical Collection Method Collection Time Receive d Time (Source) Location / / Volume Laterality Blood specimen 08/06/2016 7:41 AM 017 7:44 (specimen) EST AM EST Resulting Agency Comment Spec In Lab Alejo Garnett MD CHEMISTRY ORDERABLES Performing Organization Address City/[facility]/ZIP Code Phon e Number [address] Magnesium (08/06/2016 7:41 AM EST) P athologist Signature Magnesium 0.75 0.69 - 1.07 [facility] mmol/L [facility]OR[facility]ORY Specimen Anatomical Collection Method Collection Time Receive d Time (Source) Location / / Volume Laterality Blood specimen 08/06/2016 7:41 AM 017 7:44 (specimen) EST AM EST Resulting Agency Comment Spec In Lab Alejo Garnett MD CHEMISTRY ORDERABLES Performing Organization Address City/[facility]/ZIP [place] [address] (ABNORMAL) Comprehensive metabolic panel (non-fasting) (08/06/2016 7:41 AM EST) P athologist Signature Glucose Lvl 239 (H) 65 - 199 [facility] mg/dL [facility]ORY Comment: Diabetes: >=200 mg/dL plus symp toms BUN 43 (H) 10 - 20 mg/dL [facility]ORY Creatinine 2.23 (H) 0.80 - 1.50 mg/dL [facility] Comment: Please note that the pediatric reference intervals supplied above were not validated at [facility]. Results from pediatri c patients should be interpreted in conjunction to the patient's age, height and muscle mass. Sodium 141 135 - 145 mmol/L [facility] Potassium 4.4 3.5 - 5.0 mmol/L [facility] Comment: Please note: ??Patients with WBC >100,00 0 may have falsely elevated Potassium levels. ??For accurate Potassium quantif ication in these patients send serum separator tube (gold top) for subsequent determinations. ??Contact the Clinical Chemistry Laboratory if there are any qu estions. Chloride 103 98 - 107 mmol/L [facility] CO2 24 22 - 31 mmol/L [facility] Anion Gap 14 5 - 15 mmol/L [facility] Calcium 9.5 8.5 - 10.5 mg/dL [facility] Total Protein 8.3 (H) 6.1 - 8.0 gm/dL [facility] Albumin 3.6 3.2 - 5.2 gm/dL [facility] LAB[facility] AST 12 0 - 39 unit/L [facility] ALT 11 0 - 55 unit/L [facility] Alk Phos 114 40 - 120 unit/L [facility] Total Bilirubin 0.5 0.2 - 1.3 mg/dL [facility]OR[facility]ORY Bili, Direct 0.2 0.0 - 0.3 mg/dL [facility] Estimated GFR 30 (L) >=60 [facility] Comment: This estimated GFR (eGFR) [...] the following links into your internet browser. http://[employer]/DHnkdep http://[employer]/DHMCnkf Specimen Anatomical Collection Method Collection Time Receive d Time (Source) Location / / Volume Laterality Blood specimen 08/06/2016 7:41 AM 017 7:44 (specimen) EST AM EST Resulting Agency Comment Spec In Lab Alejo Garnett MD CHEMISTRY ORDERABLES Performing Organization Address City/State/[place] [address] Cholesterol, total (08/06/2016 7:41 AM EST) Patholo gist Method Time Signature Chol, Total 90 <=239 [place] mg/dL [facility] Lipid See Note SYLVIA Interpretation [facility] Comment: Lipid management should be guided by a p atient? s ASCVD risk, goals and preferences. ACC/AHA Guidelines recommend high intens ity statin if clinical ASCVD or LDL greater than or equal to 190 mg/dL. http://circ.ahajournals.org/content/felix y/.cir.0054943202.88732.7a Adults aged 40-75 with LDL 70-189 mg/dL should have their 10 year ASCVD risk estimated with the ACC/AHA ASCVD risk es timator http://tools.acc.org/DFFMP-Syko-Usgxptlg r/ Statin should be discussed if risk [...] Garnett MD CHEMISTRY ORDERABLES Performing Organization Address City/State/[facility] [place] [address] (ABNORMAL) Uric acid (08/06/2016 7:41 AM EST) P athologist Signature Uric Acid 12.1 (H) 3.5 - 8.5 [facility] mg/dL [facility]ORY Specimen Anatomical Collection Method Collection Time Receive d Time (Source) Location / / Volume Laterality Blood specimen 08/06/2016 7:41 AM 017 7:44 (specimen) EST AM EST Resulting Agency Comment Spec In Lab Alejo Garnett MD CHEMISTRY ORDERABLES Performing Organization Address City/State/ZIP [place] [address] Tacrolimus level (08/06/2016 7:41 AM EST) P athologist Signature Tacrolimus Lvl 5.5 ng/mL [facility] Comment: Trough therapeutic: ??5-15 ng/mL Performed by ultra-performance liquid ch romatography tandem mass spectrometry (UPLCMS/MS). Specimen Anatomical Collection Method Collection Time Receive d Time (Source) Location / / Volume Laterality Blood specimen 08/06/2016 7:41 AM 017 (specimen) EST 10:15 AM EST Resulting Agency Comment Spec In Lab Alejo Garnett MD CHEMISTRY ORDERABLES Performing Organization Address City/[facility]/ZIP [place] [address] (ABNORMAL) Reticulocyte Count (08/06/2016 7:41 AM EST) [facility] Method Time Signature Retic Ct % 2.8 (H) 0.7 - 2.6 [facility] LABORATORY Retic Ct Abs 0.110 0.030 - [facility] 0.120 [facility] x10(6)/[facility] LABORATORY Immature Retic% 15.7 (H) 0.0 - [facility] 15.6 [facility] LABORATORY Reticulated Hgb 33.2 31.3 - [facility] 40.2 [facility] LABORATORY Specimen Anatomical Collection Method Collection Time Receive d Time (Source) Location / / Volume Laterality Blood specimen 08/06/2016 7:41 AM 017 7:44 (specimen) EST AM EST Resulting Agency Comment Spec In Lab Alejo Garnett MD HEMATOLOGY ORDERABLES Performing Organization Address City/[facility]/ZIP [place] [address] (ABNORMAL) Urinalysis with reflex Culture (08/06/2016 7:38 AM EST) [facility] Method Time Signature Glucose UA 50 (A) Negative [facility] mg/dL [facility]ORY Protein UA 30 (A) Negative [facility] mg/dL [facility]ORY Bilirubin UA Negative Negative [facility] mg/dL [facility] Comment: Clinical correlation required for positi ve Urine Bilirubin results as false positive may occur with some drugs and d rug related products. If a false positive is suspected a serum total bili reyna should be considered if clinically indicated. Urobilinogen UA Normal Normal mg/dL [facility] pH UA 6.0 5.0 - 8.0 [facility] Blood UA Negative Negative mg/dL [facility] Ketones UA Negative Negative mg/dL [facility] Nitrite UA Negative Negative [facility] Leukocytes UA Negative Negative [facility] LABORATORY Appearance UA Clear Clear [facility]ORY Spec [place] UA 1.013 1.002 - 1.030 [facility] Color UA Yellow Yellow [facility] RBC UA 1 0 - 3 /HPF [facility] WBC UA 2 0 - 3 /HPF [facility] Squam Epith UA 1 <=4 /HPF [facility] Hyaline Cast UA 12 (H) 0 - 2 /LPF [facility] Culture Reflexed No [facility] Specimen (Source) Anatomical Collection Method Collection Time Re ceived Time Location / / Volume Laterality Urine specimen 08/06/2016 7:38 08/06/2016 7:44 obtained by clean AM EST AM EST catch procedure (specimen) Resulting Agency Comment Spec In Lab Alejo Garnett MD URINE ORDERABLES Performing Organization Address City/State/[place] [address] (ABNORMAL) Protein/Creatinine Ratio, urine (08/06/2016 7:38 AM EST) P athologist Signature U Creatinine 107 mg/dL [facility] U Protein Ran 18 (H) 0 - 12 [facility] mg/dL [facility]ATORY Prot/Cre Ratio 0.2 ratio [facility] Specimen Anatomical Collection Method Collection Time Receive d Time (Source) Location / / Volume Laterality Urine specimen 08/06/2016 7:38 AM 017 7:45 (specimen) EST AM EST Resulting Agency Comment Spec In Lab Alejo Garnett MD URINE ORDERABLES Performing Organization Address City/State/[place] [address] documented in this encounter Visit Diagnoses Diagnosis Kidney replaced by transplant documented in this encounter Care Teams Insurance Office Supervisor Relationship Specialty Start Date End Date Violetta Sanford MD PCP - General 04/02/14 [address] [place] [address] documented as of this encounter
--- OUTSIDE RECORDS SUMMARY | 2022-06-16 12:29 | XMS_ITS | Encounter Summary ---
:1955 Author Organization [facility] [place] [address] Care Team Providers Name Role Phone Violetta Sanford MD Primary Care Provider Reason for Visit Reason Comments Medication Refill Encounter Details Date Type Department Care Team Description 12/19/2015 Refill Endocrinology at [facility] Donell Hernandez MD [facility] [place] [address] ENDOCRINOLOGY DEPT. [phone] [place], [place] [address] (Wo rk) Social History Tobacco [...] Neurology Tyler Rojas MD [facility] [address] [place], [place] [phone] (Wo rk) 06/29/2022 Appointment Cardiology Violetta Sanford M D [address] [place] [address] (Wo rk) 06/30/2022 Infusion Hematology and Oncology 07/14/2022 Infusion Hematology and Oncology 07/28/2022 Infusion Hematology and Oncology 08/11/2022 Infusion Hematology and Oncology 08/16/2022 Office Visit Audiology Mindy Moody AUD [facility] AUDIOLOGY [place], [place] [address] (Wo rk) 11/04/2022 Office Visit Rheumatology Dante Freedman, PA [facility] RHEUMATOLOGY [place], [place] [address] (Wo rk) documented as of this encounter Visit Diagnoses Not on filedocumented in this encounter Care Teams Building Construction Ironworker Relationship Specialty Start Date End Date Violetta Sanford MD PCP - General 04/02/14 [address] [place] [address] documented as of this encounter
--- OUTSIDE RECORDS SUMMARY | 2022-06-16 12:29 | XMS_ITS | Encounter Summary ---
:1955 Author Organization [facility] [place] [address] Care Team Providers Name Role Phone Violetta Sanford MD Primary Care Provider Encounter Details Date Type Department Care Team Description 08/31/2016 Telephone [place]pl[place] [facility] Marguerite Crespo, [place] [phone] Social History Tobacco Use Types Packs/Day [...] would request c/s for appropriate treatment. Called [facility] where patient had reported to ED,they searched [...] with additional concerns. Marguerite Crespo, RN Post Computer Support Technician [facility] Solid Organ Transplant documented in this encounter Plan of Treatment Upcoming Encounters Date Type Specialty Care Team Description 06/16/2022 Infusion Hematology and Oncology 06/21/2022 Office Visit Neurology Tyler Rojas MD [facility] Neurology [place], [place] [phone] (Wo rk) 06/29/2022 Appointment Cardiology Violetta Sanford M D [address] [place], [place] [address] (Wo rk) 06/30/2022 Infusion Hematology and Oncology 07/14/2022 Infusion Hematology and Oncology 07/28/2022 Infusion Hematology and Oncology 08/11/2022 Infusion Hematology and Oncology 08/16/2022 Office Visit Audiology Mindy Moody AUD [facility] AUDIOLOGY DEPT [place], [place] [address] (Wo rk) 11/04/2022 Office Visit Rheumatology Dante Freedman PA [facility] RHEUMATOLOGY [place], [place] [address] (Wo rk) documented as of this encounter Visit Diagnoses Not on filedocumented in this encounter Care Teams Pest Control Service Sales Agent Relationship Specialty Start Date End Date Violetta Sanford MD PCP - General 04/02/14 [address] [place], [place] [address] documented as of this encounter
--- OUTSIDE RECORDS SUMMARY | 2022-06-16 12:29 | XMS_ITS | Encounter Summary ---
:1955 Author Organization [facility] Address [address] [place] [address] Care Team Providers Name Role Phone Violetta Sanford MD Primary Care Provider Encounter Details Date Type Department Care Team Description 12/07/2016 Office Visit Endocrinology at [facility] Donell Hernandez, Uncontrolled type 2 diabetes mellitus with complication, with long-term current use of insulin; [facility] S/P bilateral BKA (below knee amputation ); [facility] CKD (chronic kidney disease) stage 3, GFR 30-59 ml/[place] [address] CENTER [phone] ENDOCRINOLOGY DEPT. [place], [place] [address] Social History Tobacco Use Types [...] :2011 last Cr:today last lipid panel:2011 regular preparing box tender:no special shoes:no flu shot :yes pneumovax: 2012 [...] lungs daily. 1 ??? Miscellaneous Medical Supply [facility] 4 Devices by [facility].(Non-Drug; Combo Route) route daily. Rubber sheath for leg prosthesis (2 pairs) 4 each PRN ??? VENTOLIN HFA 90 mcg/actuation HFA Aerosol Inhaler Inhale 2 puffs into the lungs as needed. 0 ??? Insulin Lispro (HUMALOG) 100 unit/mL Insulin Pen Inject 30-40 Units subcutaneously 4 times daily. ??? BD INSULIN PEN NEEDLE UF ORIG 29 gauge x 1/2 Needle 0 ??? Insulin [place], Disposable, (BD INSULIN PEN NEEDLE UF SHORT) [...] Office Visit Neurology Tyler Rojas MD [facility] Neurology [place], [place] [phone] (Wo rk) 06/29/2022 Appointment Cardiology Violetta Sanford M D [address] [place] [address] (Wo rk) 06/30/2022 Infusion Hematology and Oncology 07/14/2022 Infusion Hematology and Oncology 07/28/2022 Infusion Hematology and Oncology 08/11/2022 Infusion Hematology and Oncology 08/16/2022 Office Visit Audiology Mindy Moody, WEND[facility] AUDIOLOGY DEPT [place], [place] [address] (Wo rk) 11/04/2022 Office Visit Rheumatology Dante Freedman, DA [facility] RHEUMATOLOGY [place], [place] [address] (Wo rk) documented as of this encounter Results TSH (06/14/2017 9:44 AM EST) athologist Signature TSH 2.52 0.27 - 4.20 [facility] mlU/ML [facility] Specimen Anatomical Collection Method Collection Time Receive d Time (Source) Location / / Volume Laterality Blood specimen 06/14/2017 9:44 AM 017 9:53 (specimen) EST AM EST Resulting Agency Comment Spec In Lab Donell Hernandez MD CHEMISTRY ORDERABLES Performing Organization Address City/State/[place] [address] (ABNORMAL) Creatinine (06/14/2017 9:44 AM EST) Analysis Performed At Patho logist Time Signature Creatinine 1.94 (H) 0.80 - [facility] 1.50 mg/dL [facility] Estimated GFR 35 (L) >=60 [facility] Comment: The reported eGFR should be multiplied b y 1.2 for patients. The MDRD is not an appropriate measure o f renal function for patients with body mass extremes or in patients with acute kidney failure. http://Polimax.Mapp/DHnkdep http://Proximex/DHMCnkf Specimen Anatomical Collection Method Collection Time Receive d Time (Source) Location / / Volume Laterality Blood specimen 06/14/2017 9:44 AM 017 9:53 (specimen) EST AM EST Resulting Agency Comment Spec In Lab Donell Hernandez MD CHEMISTRY ORDERABLES Performing Organization Address City/State/[place] [address] (ABNORMAL) Hemoglobin A1c (06/14/2017 9:44 AM EST) Analysis Performed At [facility] Time Signature Hemoglobin A1C 8.2 (H) 4.3 - 5.6 [facility] Comment: Reference Range: [...] Mellitus, Diabetes Care 2013; 36: Suppl. 1, G87-26 Est Avg Gluc 189 mg/dL [facility] Comment: eAG equivalents for HbA1c percentages: HbA1c(%) ?eAG(mg/dL) 6.0 ?126 6.5 ?140 7.0 ?154 7.5 ?169 8.0 ?183 8.5 ?197 9.0 ?212 9.5 ?226 10.0 ? 240 Limitations: The eAG calculation has not been validated on women, individuals below 18 years old and above 70 years old, and individuals with hemoglobinopathies. Additional resources are available on [facility] website. Scooby MALDONADO, Nba J, Sydnee R, et al. ??Tr anslating the A1C assay into estimated average glucose values. ??Diabetes Care 2008:31(8):9334-3868. Specimen Anatomical Collection Method Collection Time Receive d Time (Source) Location / / Volume Laterality Blood specimen 06/14/2017 9:44 AM 017 9:53 (specimen) EST AM EST Resulting Agency Comment Spec In Lab Donell Hernandez MD CHEMISTRY ORDERABLES Performing Organization Address City/State/[place] [address] documented in this encounter Visit Diagnoses Diagnosis Uncontrolled type 2 diabetes mellitus wi complication, with long-term current use of insulin S/P bilateral BKA (below knee amputation ) Lower limb amputation, below knee CKD (chronic kidney disease) stage 3, GF R 30-59 ml/min Chronic kidney disease, Stage III (moder ate) documented in this encounter Care Teams Hair Or Beauty Salon Assistant Relationship Specialty Start Date End Date Violetta Sanford MD PCP - General 04/02/14 [address] [place] [address] documented as of this encounter
--- OUTSIDE RECORDS SUMMARY | 2022-06-16 12:29 | XMS_ITS | Encounter Summary ---
:1955 Author Organization [facility] [address] Care Team Providers Name Role Phone Violetta Sanford MD Primary Care Provider Reason for Visit Reason Onset Date Comments Medication Refill 02/02/2016 Encounter Details Date Type Department Care Team Description 02/02/2016 [facility] [place] [address] Social History Tobacco Use Types Packs/Day [...] Tyler Rojas MD [facility] Neurology [place], [place] [phone] (Wo rk) 06/29/2022 Appointment Cardiology Violetta Sanford M D [address] [place], [place] [address] (Wo gregg) 06/30/2022 Infusion Hematology and Oncology 07/14/2022 Infusion Hematology and Oncology 07/28/2022 Infusion Hematology and Oncology 08/11/2022 Infusion Hematology and Oncology 08/16/2022 Office Visit Audiology Mindy Moody AUD [facility] AUDIOLOGY DEPT [place], [place] [address] (Wo rk) 11/04/2022 Office Visit Rheumatology Dante Freedman PA [facility] RHEUMATOLOGY [place], [place] [address] (Wo rk) documented as of this encounter Visit Diagnoses Diagnosis Transplanted kidney Kidney replaced by transplant documented in this encounter Care Teams Four Slide Operator Relationship Specialty Start Date End Date Violetta Sanford MD PCP - General 04/02/14 [address] [place] [address] documented as of this encounter
--- OUTSIDE RECORDS SUMMARY | 2022-06-16 12:29 | XMS_ITS | Encounter Summary ---
:1955 Author Organization [facility] Address [address] [place] [address] Care Team Providers Name Role Phone Violetta Sanford MD Primary Care Provider Reason for Visit Reason Comments Diabetes Encounter Details Date Type Department Care Team Description 06/08/2016 Office Visit Endocrinology at [facility] Donell Hernandez, Uncontrolled type 2 diabetes mellitus with other specified complication; [facility] CKD (chronic kidney disease) stage 3, GF R 30-59 ml/min; Drive [facility] S/P bilateral [place] [address] CENTER [phone] ENDOCR[address]Y DEPT. [place], [place] [address] Social History Tobacco Use Types [...] control. 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 she's been telling me this for years, [...] :2011 last Cr:today last lipid panel:2011 regular acid mixer:no special shoes:no flu shot :yes pneumovax: 2012 [...] 50 mg Refills: 0 Miscellaneous Medical Supply [facility] [...] Rojas MD [facility] Neurology [place], [place] [phone] (Wo rk) 06/29/2022 Appointment Cardiology Violetta Sanford M D [address] [place] [address] (Wo rk) 06/30/2022 Infusion Hematology and Oncology 07/14/2022 Infusion Hematology and Oncology 07/28/2022 Infusion Hematology and Oncology 08/11/2022 Infusion Hematology and Oncology 08/16/2022 Office Visit Audiology Mindy Moody AUD [facility] AUDIOLOGY DEPT [place], [place] [address] (Wo gregg) 11/04/2022 Office Visit Rheumatology Dante Freedman PA [facility] RHEUMATOLOGY [place], [place] [address] (Wo gregg) documented as of this encounter Results LDL Cholesterol, Direct (12/07/2016 10:34 AM EDT) P athologist Signature LDL Chol 54 <=190 JERE GARRISON Direct mg/dL [facility] Specimen Anatomical Collection Method Collection Time Receive d Time (Source) Location / / Volume Laterality Blood specimen 12/07/2016 10:34 7 (specimen) AM EDT 10:39 AM EDT Resulting Agency Comment Spec In Lab Donell Hernandez MD CHEMISTRY ORDERABLES Performing Organization Address City/[facility]/ZIP Code Phon e Number [address] TSH (12/07/2016 10:34 AM EDT) athologist Signature TSH 1.93 0.27 - 4.20 JERE GRUBERCK mcIU/mL [facility] Specimen Anatomical Collection Method Collection Time Receive d Time (Source) Location / / Volume Laterality Blood specimen 12/07/2016 10:34 7 (specimen) AM EDT 10:39 AM EDT Resulting Agency Comment Spec In Lab Donell Hernandez MD CHEMISTRY ORDERABLES Performing Organization Address City/[facility]/[place] [address] (ABNORMAL) Creatinine (12/07/2016 10:34 AM EDT) athologist Signature Creatinine 1.83 (H) 0.80 - JERE GRUBERCK 1.50 mg/dL [facility] Comment: Please note that the pediatric reference intervals supplied above were not validated at [facility]. Results from pediatri c patients should be interpreted in conjunction to the patient's age, height and muscle mass. Estimated GFR 38 (L) >=60 [facility] Comment: This estimated GFR (eGFR) value [...] the following links into your internet browser. [email or web address]/DHnkdep [email or web address]/DHMCnkf Specimen Anatomical Collection Method Collection Time Receive d Time (Source) Location / / Volume Laterality Blood specimen 12/07/2016 10:34 7 (specimen) AM EDT 10:39 AM EDT Resulting Agency Comment Spec In Lab Donell Hernandez MD CHEMISTRY ORDERABLES Performing Organization Address City/State/ZIP Code Phon e Number [place] [id number] (ABNORMAL) Hemoglobin A1c (12/07/2016 [...] 1, S67-74 Est Avg Gluc 200 mg/dL [facility] Comment: eAG equivalents for HbA1c percentages: HbA1c(%) ?eAG(mg/dL) 6.0 ?126 6.5 ?140 7.0 ?154 7.5 ?169 8.0 ?183 8.5 ?197 9.0 ?212 9.5 ?226 10.0 ? 240 Limitations: The eAG calculation has not been validated on women, individuals below 18 years old and above 70 years old, and individuals with hemoglobinopathies. Additional resources are available on [facility] website. Scooby MALDONADO, Nba J, Sydnee R, et al. ??Tr anslating the A1C assay into estimated average glucose values. ??Diabetes Care 2008:31(8):6782-6386. Specimen Anatomical Collection Method Collection Time Receive d Time (Source) Location / / Volume Laterality Blood specimen 12/07/2016 10:34 7 (specimen) AM EDT 10:39 AM EDT Resulting Agency Comment Spec In Lab Donell Hernandez MD CHEMISTRY ORDERABLES Performing Organization Address City/State/[place] [address] documented in this encounter Visit Diagnoses Diagnosis Uncontrolled type 2 diabetes mellitus wi th other specified complication CKD (chronic kidney disease) stage 3, GF R 30-59 ml/min Chronic kidney disease, Stage III (moder ate) S/P bilateral below knee amputation Lower limb amputation, below knee documented in this encounter Care Teams Project Drilling Engineer Relationship Specialty Start Date End Date Violetta Sanford MD PCP - General 04/02/14 [address] [place] [address] documented as of this encounter
--- OUTSIDE RECORDS SUMMARY | 2022-06-16 12:29 | XMS_ITS | Encounter Summary ---
:1955 Author Organization [facility] Address [address] [place] [address] Care Team Providers Name Role Phone Violetta Sanford MD Primary Care Provider Reason for Visit Reason Comments Kidney Transplant Follow-up Immunotherapy Encounter Details Date Type Department Care Team Description 01/05/2016 Office Visit Solid Organ Alejo Garnett Aftercare following organ transplant; Transplant at [facility] MD Thang Prophylactic immunotherapy; [facility] H/O kidney transplant [place] [phone] [place] [address] [phone] Social History Tobacco Use Types Packs/Day Years [...] Bradshaw MD - 01/05/2016 10:18 AM EDT [facility] Transplant Nephrology Follow Up Leroy Dailey [id number] 1955 Transplant ID: Date: 01/05/2016 Patient: Leroy Dailey Transplant Date: 02/29/08 Organ(s) Kidney Hoh organ diagnosis: Diabetes Mellitus - Type II [...] sleeping at night. MELISSA was diagnosed and Chemical Detection Expert ordered CPAP machine at night with everettez for him Got last mar 2015 have [...] every 5 for non diabetics done 03/21/2015 Hoh kidney ultrasound looking for renal cell CA, [...] Mist 11/27/15 PROVIDER, HISTORICAL Miscellaneous Medical Supply [facility] 4 Devices by [facility].(Non-Drug; Combo Route) route daily. Rubber sheath for [...] Date; 02-29-08 03/08/15 Angel Mccann MD Insulin [place], Disposable, (BD INSULIN PEN NEEDLE UF SHORT) [...] infected Labs/ Imaging: Results for LEROY DAILEY Sania ( ) as of 01/05/2016 11:48 Ref. [...] stress echo every 3 years is negative C)[facility] U/S needs one 4)gaining wt 5)wound [...] Mariola Bradshaw MD Nephrology fellow Pager # [phone] I reviewed all of the above findings and assessment of Dr. Bradshaw, examined and formulated the recommendations which accurately reflect mine. documented in this encounter Plan of Treatment Upcoming Encounters Date Type Specialty Care Team Description 06/16/2022 Infusion Hematology and Oncology 06/21/2022 Office Visit Neurology Tyler Rojas MD [facility] Neurology [place], [place] [phone] (Oscar escobedo) 06/29/2022 Appointment Cardiology Violetta Sanford M D [address] [place] [address] (Oscar escobedo) 06/30/2022 Infusion Hematology and Oncology 07/14/2022 Infusion Hematology and Oncology 07/28/2022 Infusion Hematology and Oncology 08/11/2022 Infusion Hematology and Oncology 08/16/2022 Office Visit Audiology Mindy Moody AUD [facility] AUDIOLOGY DEPT [place], [place] [address] (Wo rk) 11/04/2022 Office Visit Rheumatology Dante Freedman PA [facility] RHEUMATOLOGY [place], [place] [address] (Wo rk) documented as of this encounter Visit Diagnoses Diagnosis Aftercare following organ transplant Prophylactic immunotherapy Need for prophylactic immunotherapy H/O kidney transplant Kidney replaced by transplant documented in this encounter Care Teams Keyboarding Teacher Relationship Specialty Start Date End Date Violetta Sanford MD PCP - General 04/02/14 [address] [place] [address] documented as of this encounter
--- OUTSIDE RECORDS SUMMARY | 2022-06-16 12:30 | XMS_ITS | Encounter Summary ---
:1955 Author Organization [facility] [place] [address] Care Team Providers Name Role Phone Violetta Sanford MD Primary Care Provider Reason for Visit Reason Onset Date Comments Medication Refill 04/19/2014 Encounter Details Date Type Department Care Team Description 04/19/2014 Refill Endocrinology at [facility] Donell Hernandez MD Diabetes mellitus; [facility] Type II or unspecified type diabetes mellitus with neurological manifestations, uncontrolled(250.62) [place] [address] ENDOCRINOLOGY DE PT. [place], [place] [address] (Oscar rk) Social History Tobacco [...] Rojas MD [facility] Neurology [place], [place] [phone] (Wo rk) 06/29/2022 Appointment Cardiology Violetta Sanford M D [facility] [address] [place], [place] [phone] (Oscar rk) 06/30/2022 Infusion Hematology and Oncology 07/14/2022 Infusion Hematology and Oncology 07/28/2022 Infusion Hematology and Oncology 08/11/2022 Infusion Hematology and Oncology 08/16/2022 Office Visit Audiology Mindy Moody AUD [facility] AUDIOLOGY [place], [place] [address] (Wo rk) 11/04/2022 Office Visit Rheumatology Dante Freedman, DA [facility] RHEUMATOLOGY [place], [place] [address] (Wo rk) documented as of this encounter Visit Diagnoses Diagnosis Diabetes mellitus Type II or unspecified type diabetes fredo litus without mention of complication, not stated as uncontrolled Type II or unspecified type diabetes fredo litus with neurological manifestations, uncontrolled(250.62) Type II or unspecified type diabetes fredo litus with neurological manifestations, uncontrolled documented in this encounter Care Teams Python Architect Relationship Specialty Start Date End Date Violetta Sanford MD PCP - General 04/02/14 [address] [place] [address] documented as of this encounter
--- OUTSIDE RECORDS SUMMARY | 2022-06-16 12:30 | XMS_ITS | Encounter Summary ---
:1955 Author Organization [facility] Address [facility] [place] [address] Care Team Providers Name Role Phone Dc Ibanez MD Primary Care Provider Reason for Visit Reason Comments Kidney Transplant Follow-up Encounter Details Date Type Department Care Team Description 02/25/2014 Follow-Up Solid Organ Transplant Alejo Garnett Need for prophylactic immunotherapy; at [facility] MD Thang Kidney replaced by transplant; [facility] [place] [address] TRANSPLANT SURGERY [phone] [place] [id number] (Wo rk) Social History Tobacco Use Types [...] Garnett MD - 02/20/2014 3:24 PM EDT [facility] Transplant Nephrology Follow Up Date: 02/25/2014 Patient: Leroy Torres Transplant Date: 02/29/08 Organ(s) Kidney Pauma organ diagnosis: Diabetes Mellitus - Type II [...] hospital recovery s/p appendectomy here at [facility] In 05/2013 requiring ventillation. ?? Prior history [...] virus only) ??? Hepatitis C Screening (B. [id number]) ??? Pneumovax Q5 years ??? Yearly ophthalmology [...] BELOW-KNEE performed by NARAYAN GAMINO JR at [facility] MAIN OR ??? Lap, appendectomy 06/16/2013 LAPAROSCOPIC APPENDECTOMY performed by Angel Mccann MD at [facility] MAIN OR No family history on file. [...] Units subcutaneously 2 times daily. ??? Insulin [place], Disposable, (BD INSULIN PEN NEEDLE UF SHORT) [...] Rojas MD [facility] Neurology [place], [place] [phone] (Wo rk) 06/29/2022 Appointment Cardiology Violetta Sanford M D [phone] [place] [address] (Wo rk) 06/30/2022 Infusion Hematology and Oncology 07/14/2022 Infusion Hematology and Oncology 07/28/2022 Infusion Hematology and Oncology 08/11/2022 Infusion Hematology and Oncology 08/16/2022 Office Visit Audiology Mindy Moody AUD [facility] AUDIOLOGY DEPT [place], [place] [address] (Wo rk) 11/04/2022 Office Visit Rheumatology Dante Freedman PA [facility] RHEUMATOLOGY [place], [place] [address] (Wo rk) documented as of [...] Component Value Ref Test Analysis Performed At [facility] Range Method Time Signature BKV Urine Not Detected CERNER Result [facility] BKV Urine BK Virus Urine Result Interpretation [facility] Result: BK Virus Not Detected log concentration: Not detected Assay Range: urine: 3.04-9.04 log copies/mL (1.1x10^3 - 1.1x10^9 copies/mL ) Results are reported as log copies/mL. ??Changes of less than 1.0 log between serial samples may not be clinically significant. Methods: Quantitative real-time polymerase chain reaction (PCR) with of viral DNA isolated from urine was performed using DarkWorks BKV (ASR) reagents and the Applied CareCloud 7500 Fast Real-Time PCR System. In addition, the PCR product sequence is confirmed using physical properties (melt curve analysis). This test was developed and its performance determined by the [facility] Molecular Pathology Laboratory. It has not been [...] Garnett MD HEMATOLOGY ORDERABLES Performing Organization Address City/[facility]/ZIP Code Phon e Number [address] CERNER MILLENNIUM Creatinine, urine, random (02/25/2014 10:14 AM EDT) P athologist Signature U Creatinine 62 mg/dL CERNER MILLENNIUM Specimen Anatomical Collection Method Collection Time Receive d Time (Source) Location / / Volume Laterality Urine specimen 02/25/2014 10:14 4 (specimen) AM EDT 10:23 AM EDT Resulting Agency Comment Spec In Lab Alejo Garnett MD URINE ORDERABLES Performing Organization Address City/[facility] Code Phon e Number [address] CERNER MILLENNIUM (ABNORMAL) Protein/Creatinine [...] Garnett MD URINE ORDERABLES Performing Organization Address City/[facility]/ZIP [facility] Phon e Number [address] CERNER MILLENNIUM (ABNORMAL) Urinalysis without microscopic (02/25/2014 10:14 AM EDT) Patholo gist Method Time Signature [...] UA Clear Clear CERNER MILLENNIU M Spec [place] UA 1.009 1.002 - 1.030 CERNER MIL LENNIUM Color UA Light Yellow Yellow CERNER MILLENNIUM Specimen Anatomical Collection Method Collection Time Receive d Time (Source) Location / / Volume Laterality Urine specimen 02/25/2014 10:14 4 (specimen) AM EDT 10:23 AM EDT Resulting Agency Comment Spec In Lab Alejo Garnett MD URINE ORDERABLES Performing Organization Address City/State/[place] [address] [facility] BK Quant Blood Result (02/25/2014 10:01 AM EDT) Component Value Ref Test Analysis Performed At [facility] Range Method Time Signature BKV Blood Not Detected CERNER Result MILLENNIUM BKV Blood BK Virus Blood Result Interpretation [facility] Interp MILLENNIUM Result: BK Virus not detected log concentration (copies/mL): ??Not detected Assay Range: ??plasma: 3.04-9.04 log copyholder ies/mL (1.1x10^3 - 1.1x10^9 copies/mL) Results are reported as log copies/mL. ??Changes of less than 1.0 log between serial samples may not be clinically significant. Methods: Quantitative real-time polymerase chain react ion (PCR) of viral DNA isolated from plasma was performed using DarkWorks BKV (ASR) re agents and the Applied CareCloud 7500 FAST Real-Time PCR System. In additi on, the ??PCR product sequence is confirmed using physical properties (fredo ting curve analysis). This test was developed and its performance determined by the [facility] Molecular Pathology Laboratory. It has not been [...] Organization Address City/State/ZIP Code Phon e Number [place] [id number] CERNER MILLENNIUM Differential, Automated [...] Garnett MD HEMATOLOGY ORDERABLES Performing Organization Address City/[facility] Code Phon e Number [place] [phone]OS[address]ITAL [address] CERNER MILLENNIUM (ABNORMAL) Hemogram [...] Garnett MD HEMATOLOGY ORDERABLES Performing Organization Address City/[facility]/ZIP Code Phon e Number [place] [phone]OS[address]ITAL [address] CERNER [facility] (ABNORMAL) VIT D Total Evaluation (02/25/2014 10:01 AM EDT) athologist Signature 25-OH Vit D 28 (L) 30 - 100 CERNER Total ng/mL [facility] Comment: Deficient <10 ng/mL Insufficient 10 to 29 ng/mL Sufficient 30 to 100 ng/mL Potential Intoxication >100 ng/mL According to the [place] National Osteoporosi s Foundation, Vitamin D concentrations >30 ng/mL are sufficient to protect bone health. ??The National Kidney Foundation has similarly stated that pat ients with Vitamin D concentrations <30ng/mL should be considered to be insu fficient or deficient. http://Shweeb/DHMediaTrustnatlkidneyfoundat ion http://Shweeb/DHMCVitD The IDS iSYS Vitamin D Immunoassay detec [...] Organization Address City/State/[place] [address] [facility] 1,25-dihydroxycholecalciferol (02/25/2014 10:01 AM EDT) athologist Signature Vit D 1,25 35 18 - 64 CERNER pg/mL [facility] Comment: Test Performed by: [place] [address] Respiratory Therapy Aide: Narayan richards III, M.D. Specimen Anatomical Collection Method Collection Time Receive d Time (Source) Location / / Volume Laterality Blood specimen 02/25/2014 10:01 4 (specimen) AM EDT 12:23 PM EDT Resulting Agency Comment Spec In Lab Alejo Garnett MD CHEMISTRY ORDERABLES Performing Organization Address City/State/[place] [address] CERNER MILLENNIUM PTH (02/25/2014 10:01 AM EDT) athologist Signature PTH 62 15 - 65 CERNER pg/mL MILLENNIUM Specimen Anatomical Collection Method Collection Time Receive d Time (Source) Location / / Volume Laterality Blood specimen 02/25/2014 10: 4 (specimen) AM EDT 10:14 AM EDT Resulting Agency Comment Spec In Lab Alejo Garnett MD CHEMISTRY ORDERABLES Performing Organization Address City/[facility]/ZIP Code Phon e Number [address] CERNER MILLENNIUM (ABNORMAL) Reticulocyte Count (02/25/2014 10:01 AM EDT) [facility] gist Method Time Signature Retic Ct [...] / / Volume Laterality Blood specimen 02/25/2014 10:201 4 (specimen) AM EDT 10:14 AM EDT Resulting Agency Comment Spec In Lab Alejo Garnett MD HEMATOLOGY ORDERABLES Performing Organization Address City/State/ZIP Code Phon e Number [address] CERNER MILLENNIUM Tacrolimus level (02/25/2014 10:01 AM EDT) athologist Signature Tacrolimus Lvl 5.1 ng/mL CERNER MILLENNIUM Comment: Trough therapeutic: 5-15 ng/mL Specimen Anatomical Collection Method Collection Time Receive d Time (Source) Location / / Volume Laterality Blood specimen 02/25/2014 10:01 4 (specimen) AM EDT 12:15 PM EDT Resulting Agency Comment Spec In Lab Alejo Garnett MD CHEMISTRY ORDERABLES Performing Organization Address City/[facility] Code Phon e Number [address] CERNER MILLENNIUM Uric acid (02/25/2014 10:01 AM EDT) P athologist Signature Uric Acid 8.4 3.5 - 8.5 CERNER mg/dL MILLENNIUM Specimen Anatomical Collection Method Collection Time Receive d Time (Source) Location / / Volume Laterality Blood specimen 02/25/2014 10:01 4 (specimen) AM EDT 10:14 AM EDT Resulting Agency Comment Spec In Lab Alejo Garnett MD CHEMISTRY ORDERABLES Performing Organization Address [facility] Phon e Number [address] CERNER MILLENNIUM (ABNORMAL) Magnesium (02/25/2014 10:01 AM EDT) P athologist Signature Magnesium 0.61 (L) 0.69 - 1.07 CERNER mmol/L MILLENNIUM Specimen Anatomical Collection Method Collection Time Receive d Time (Source) Location / / Volume Laterality Blood specimen 02/25/2014 10:01 4 (specimen) AM EDT 10:14 AM EDT Resulting Agency Comment Spec In Lab Alejo Garnett MD CHEMISTRY ORDERABLES Performing Organization Address City/[facility]/ZIP Code Phon e Number [address] CERNER MILLENNIUM Phosphorus (02/25/2014 10:01 AM EDT) P athologist Signature Phosphorus 3.1 2.5 - 4.5 CERNER mg/dL MILLENNIUM Specimen Anatomical Collection Method Collection Time Receive d Time (Source) Location / / Volume Laterality Blood specimen 02/25/2014 10:01 4 (specimen) AM EDT 10:14 AM EDT Resulting Agency Comment Spec In Lab Alejo Garnett MD CHEMISTRY ORDERABLES Performing Organization Address City/[facility]/ZIP Code Phon e Number JERE [facility] [place] [address] HOLLI MÉNDEZ (ABNORMAL) Lipid panel (fasting) (02/25/2014 10:01 AM EDT) P athologist Signature Chol, Total 120 <=199 mg/dL CERNER MILLENNIUM Comment: Recommendations of the NCEP Adult Treatm ent Panel for the following risk cutoff thresholds for the [place] populatio n: Desirable: <200 mg/dL Borderline High: 200-239 mg/dL High: > or = 240 mg/dL Triglycerides 231 (H) <=149 mg/dL CERDINH MILLENN IUM Comment: Reference Range: Normal triglycerides: ??<150 mg/dL Borderline high: ??150-199 mg/dL High: ??200-499 mg/dL Very high: ??>ug=518 mg/dL SERENA 2001; [phone] HDL 22 (L) >=40 mg/dL DELLADINH COLEENNIUM Comment: Reference range: ??Low HDL: ?? < 40 mg/dL ??Normal: ?40-60 mg/dL ??Desirable: > 60 mg/dL SERENA 2001; [phone] LDL Cholesterol 52 <=99 mg/dL HOLLI JASON Comment: Reference range: ?? Optimal: ?<100 mg/dL ?? Near Optimal/Above Optimal: ?? 100-1 29 mg/dL ?? Borderline high: ?130-159 mg/dL ?? High: ? 160-189 mg/dL ?? Very high: ?>rr=578 mg/dL SERENA 2001: [phone]):[phone] Chol/HDL Ratio 5.5 ratio CERNER MILLENNI UM Comment: A Cholesterol to HDL ratio below 4:1 is desirable. ??Studies suggest that increased CAD risk occurs at ratios abov e 5 for females and above 6 for men. ? [place] [employer] Association ??(htt p://www.americanheart.org) ? Edna Int Med, 1994; 121:641 ? AM J Med, 1998; 105(1A):48S Specimen Anatomical Collection Method Collection Time Receive d Time (Source) Location / / Volume Laterality Blood specimen 02/25/2014 10:01 4 (specimen) AM EDT 10:14 AM EDT Resulting Agency Comment Spec In Lab Alejo Garnett MD CHEMISTRY ORDERABLES Performing Organization Address City/State/[place] [address] CERNER MILLENNIUM (ABNORMAL) Comprehensive [...] supplied above were not validated at [facility]. Results from pediatri c patients should be [...] the following links into your internet browser. http://Shweeb/DHnkdep http://Shweeb/DHMCnkf Specimen Anatomical Collection Method Collection Time Receive d Time (Source) Location / / Volume Laterality Blood specimen 02/25/2014 10:01 4 (specimen) AM EDT 10:14 AM EDT Resulting Agency Comment Spec In Lab Alejo Garnett MD CHEMISTRY ORDERABLES Performing Organization Address City/State/ZIP Code Phon e Number [address] HOLLI BALLARDIUM U24 Hrs and Volume (02/25/2014 7:00 AM EDT) P athologist Signature Hours 24 hour(s) CERNER Collected MILLENNIUM Urine TV (ml) 3900 mL CERNER MILLENNIUM Specimen Anatomical Collection Method Collection Time Receive d Time (Source) Location / / Volume Laterality Urine specimen 02/25/2014 7:00 AM 014 (specimen) EDT 12:19 PM EDT Resulting Agency Comment Spec In Lab Alejo Garnett MD CHEMISTRY ORDERABLES Performing Organization Address City/State/ZIP Code Phon e Number [address] CERNER MILLENNIUM (ABNORMAL) Protein, [...] Organization Address City/State/ZIP Code Phon e Number [address] CERNER DOUGLASENNIUM (ABNORMAL) Uric acid, urine, 24 hour (02/25/2014 7:00 AM EDT) Analysis Performed At Patho logist Time Signature U24 Uric Conc 25.1 mg/dL [...] Organization Address City/State/ZIP Code Phon e Number [address] CERNER MILLENNIUM Calcium, urine, [...] Garnett MD URINE ORDERABLES Performing Organization Address City/[facility]/[place] [address] CERNER MILLENNIUM Phosphorus, urine, 24 [...] Garnett MD URINE ORDERABLES Performing Organization Address City/[facility]/ZIP Code Phon e Number [address] CERNER MILLENNIUM (ABNORMAL) Creatinine Clearance, [...] Garnett MD URINE ORDERABLES Performing Organization Address City/[facility]/ZIP Code Phon e Number [address] CERNER MILLENNIUM documented in this encounter Visit Diagnoses Diagnosis Need for prophylactic immunotherapy Kidney replaced by transplant Transplanted kidney Kidney replaced by transplant documented in this encounter Care Teams Shopping Investigator Relationship Specialty Start Date End Date Dc Ibanez MD PCP - General 04/02/13 04/01/14 ANAMARIA [address] [place] [address] documented as of this encounter
--- OUTSIDE RECORDS SUMMARY | 2022-06-16 12:30 | XMS_ITS | Encounter Summary ---
:1955 Author Organization [facility] Address [facility] [place] [address] Care Team Providers Name Role Phone Violetta Sanford MD Primary Care Provider Encounter Details Date Type Department Care Team Description 03/17/2015 Follow-Up Solid Organ Transplant Alejo Garnett Transplanted kidney; at [facility] MD Thang Need for prophylactic immunotherapy; [facility] Aft ercare following [place] [address] TRANSPLANT SURGERY [phone] [place] [id number] (Wo rk) Social History Tobacco Use Types [...] PM EDT March 18, 2015 Leroy Torres [id number] TRANSPLANT NUTRITION Annual Post-Transplant Nutrition Evaluation Leroy [...] Garnett MD - 03/17/2015 10:35 AM EDT [facility] Transplant Nephrology Follow Up Date: 03/17/2015 Patient: Leroy Torres Transplant Date: 02/29/08 Organ(s) Kidney [place] organ diagnosis: Diabetes Mellitus - Type II [...] virus only) ??? Hepatitis C Screening (B. [phone]) ??? Pneumovax Q5 years (Prevnar 23); Pneumovax [...] every 3 years post tx in diabetics [place] renal ultrasounds every 5 years to rule [...] JR at [facility] MA[facility] OR ??? Lap, appendectomy 06/16/2013 LAPAROSCOPIC APPENDECTOMY performed by Angel Mccann MD at [facility] MA[facility] OR Family History No family history [...] Rx, Disp: 75 mL, Rfl: 11; Insulin [place], Disposable, (BD INSULIN PEN NEEDLEUF SHORT) 31 [...] Negative mcL Appearance UA Clear Clear Spec [place] UA 1.013 1.002 - 1.030 Color UA [...] mg qhs; he was advised by our traveling inventory associate about low saturated fat diet and I asked that he exercise daily for 20-30 min daily 3)HCM needs A) colonoscopy B) dobutamine stress echo every 3 years post tx in diabetics C)viejas renal U/S looking for RCC Immunosuppression: Prograf: [...] 06/21/2022 Office Visit Neurology Tyler Rojas MD [facility] [place] Neurology [place], [place] [phone] (Oscar escobedo) 06/29/2022 Appointment Cardiology Violetta Sanford M D [address] [place] [address] (Oscar escobedo) 06/30/2022 Infusion Hematology and Oncology 07/14/2022 Infusion Hematology and Oncology 07/28/2022 Infusion Hematology and Oncology 08/11/2022 Infusion Hematology and Oncology 08/16/2022 Office Visit Audiology Mindy Moody AUD [facility] AUDIOLOGY DEPT [place], [place] [address] (Wo rk) 11/04/2022 Office Visit Rheumatology Dante Freedman PA [facility] RHEUMATOLOGY [place], [place] [address] (Wo rk) documented as of [...] Address City/[facility]/[place] [address] CERNER MILLENNIUM Phosphorus, urine, random (03/17/2015 9:14 AM EDT) P athologist Signature U Phosphorus 46.1 mg/dL CERNER MILLENNIUM Specimen Anatomical Collection Method Collection Time Receive d Time (Source) Location / / Volume Laterality Urine specimen 03/17/2015 9:14 AM 015 9:25 (specimen) EDT AM EDT Resulting Agency Comment Spec In Lab Alejo Garnett MD URINE ORDERABLES Performing Organization Address City/[facility]/ZIP [facility] Phon e Number [address] CERNER MILLENNIUM Calcium Creatinine [...] Address City/[facility]/[place] [address] CERNER MILLENNIUM Creatinine, urine, random (03/17/2015 9:14 AM EDT) P athologist Signature U Creatinine 71 mg/dL [facility] Specimen Anatomical Collection Method Collection Time Receive d Time (Source) Location / / Volume Laterality Urine specimen 03/17/2015 9:14 AM 015 9:25 (specimen) EDT AM EDT Resulting Agency Comment Spec In Lab Alejo Garnett MD URINE ORDERABLES Performing Organization Address City/[facility] Phon e Number [address] CERNER MILLENNIUM (ABNORMAL) Urinalysis [...] UA Clear Clear CERNER MILLENNIU M Spec [place] UA 1.013 1.002 - 1.030 [facility] Color UA Yellow Yellow [facility] MILLENNIUM RBC UA 1 0 - 3 /HPF CERNER MILLENNIUM WBC UA 1 0 - 3 /HPF [facility] Specimen Anatomical Collection Method Collection Time Receive d Time (Source) Location / / Volume Laterality Urine specimen 03/17/2015 9:14 AM 015 9:25 (specimen) EDT AM EDT Resulting Agency Comment Spec In Lab Alejo Garnett MD URINE ORDERABLES Performing Organization Address City/State/[place] [address] CERNER MILLENNIUM BK Quant Blood Result (03/17/2015 9:00 AM EDT) Component Value Ref Test Analysis Performed At [facility] Range Method Time Signature BKV Blood Not Detected CERNER Result MILLENNIUM BKV Blood BK Virus Blood Result Interpretation CERNER Interp MILLENNIUM Result: BK Virus not detected log concentration (copies/mL): ??Not detected Assay Range: ??plasma: 3.04-9.04 log photocopier technician ies/mL (1.1x10^3 - 1.1x10^9 copies/mL) Results are reported as log copies/mL. ??Changes of less than 1.0 log between serial samples may not be clinically significant. Methods: Quantitative real-time polymerase chain react ion (PCR) of viral DNA isolated from plasma was performed using [place] BKV (ASR) re agents and the Applied BeHome247 7500 FAST Real-Time PCR System. In additi on, the ??PCR product sequence is confirmed using physical properties (fredo ting curve analysis). This test was developed and its performance determined by the [facility] Molecular Pathology Laboratory. It has not been [...] Organization Address City/State/[place] [address] CERNER MILLENNIUM LDL Cholesterol, [...] High: ? 160-189 mg/dL ?? Very high: ?>bm=934 mg/dL SERENA 2001: [id number]):[id number] Specimen Anatomical Collection Method Collection Time Receive d Time (Source) Location / / Volume Laterality Blood specimen 03/17/2015 9:00 AM 015 9:08 (specimen) EDT AM EDT Resulting Agency Comment Spec In Lab Alejo Garnett MD CHEMISTRY ORDERABLES Performing Organization Address City/State/ZIP Code Phon e Number JERE GARRISON [address] CERNER MILLENNIUM Differential, Automated [...] Address City/State/[place] [address] CERNER MILLENNIUM (ABNORMAL) Hemogram [...] MPV 9.0 9.0 - 12.0 [facility] f[facility] Specimen Anatomical Collection Method Collection Time Receive d Time (Source) Location / / Volume Laterality Blood specimen 03/17/2015 9:00 AM 015 9:05 (specimen) EDT AM EDT Resulting Agency Comment Spec In Lab Alejo Garnett MD HEMATOLOGY ORDERABLES Performing Organization Address City/State/[place] [address] [facility]ASH[facility] (ABNORMAL) Hemoglobin A1c (03/17/2015 9:00 AM EDT) Analysis Performed At Patho logist Time Signature Hemoglobin A1C 9.7 (H) 4.3 - 5.6 CERNER % MILLENNIUM [...] 1, S67-74 Est Avg Gluc 232 mg/dL [facility] Comment: eAG equivalents for HbA1c percentages: HbA1c(%) ?eAG(mg/dL) 6.0 ?126 6.5 ?140 7.0 ?154 7.5 ?169 8.0 ?183 8.5 ?197 9.0 ?212 9.5 ?226 10.0 ? 240 Limitations: The eAG calculation has not been validated on women, individuals below 18 years old and above 70 years old, and individuals with hemoglobinopathies. Additional resources are available on [facility] website: http://[employer]/DHMCadacalc Scooby MALDONADO, Nba J, Sydnee R, et al. ??Tr anslating the A1C assay into estimated average glucose values. ??Diabetes Care 2008:31(8):9659-5735. Specimen Anatomical Collection Method Collection Time Receive d Time (Source) Location / / Volume Laterality Blood specimen 03/17/2015 9:00 AM 015 9:05 (specimen) EDT AM EDT Resulting Agency Comment Spec In Lab Alejo Garnett MD CHEMISTRY ORDERABLES Performing Organization Address City/[facility] [place] [address] CERNER MILLENNIUM (ABNORMAL) VIT D Total Evaluation (03/17/2015 9:00 AM EDT) athologist Signature 25-OH Vit D 29 (L) [...] considered to be insu fficient or deficient. http://[employer]/DHMCnatlkidneyfoundat ion http://[employer]/DHMCVitD The IDS iSYS Vitamin D Immunoassay detec [...] City/[facility]/ZIP Code Phon e Number [address] CERNER MILLENNIUM 1,25-dihydroxycholecalciferol (03/17/2015 9:00 AM EDT) athologist Signature Vit D 1,25 25 18 - 64 CERNER pg/mL MILLENNIUM Comment: Test Performed by: [place] [id number] Fruit Thinner: Van White II, M.D., Ph.D. Specimen Anatomical Collection Method Collection Time Receive d Time (Source) Location / / Volume Laterality Blood specimen 03/17/2015 9:00 AM 015 (specimen) EDT 11:35 AM EDT Resulting Agency Comment Spec In Lab Alejo Garnett MD CHEMISTRY ORDERABLES Performing Organization Address City/State/ZIP Code Phon e Number [address] CERNER MILLENNIUM (ABNORMAL) PTH [...] Address City/State/[place] [address] CERNER MILLENNIUM Tacrolimus level [...] Organization Address City/State/ZIP Code Phon e Number [address] CERNER MILLENNIUM (ABNORMAL) Uric acid (03/17/2015 9:00 AM EDT) P athologist Signature Uric Acid 9.8 (H) 3.5 - 8.5 CERNER mg/dL [facility] Specimen Anatomical Collection Method Collection Time Receive d Time (Source) Location / / Volume Laterality Blood specimen 03/17/2015 9:00 AM 015 9:05 (specimen) EDT AM EDT Resulting Agency Comment Spec In Lab Alejo Garnett MD CHEMISTRY ORDERABLES Performing Organization Address City/State/ZIP Code Phon e Number [address] CERNER MILLENNIUM Phosphorus (03/17/2015 9:00 AM EDT) P athologist Signature Phosphorus 3.1 2.5 - 4.5 CERNER mg/dL [facility] Specimen Anatomical Collection Method Collection Time Receive d Time (Source) Location / / Volume Laterality Blood specimen 03/17/2015 9:00 AM 015 9:05 (specimen) EDT AM EDT Resulting Agency Comment Spec In Lab Alejo Garnett MD CHEMISTRY ORDERABLES Performing Organization Address City/State/ZIP Code Phon e Number [address] CERNER MILLENNIUM Magnesium (03/17/2015 9:00 AM EDT) P athologist Signature Magnesium 0.72 0.69 - 1.07 CERNER mmol/L [facility] Specimen Anatomical Collection Method Collection Time Receive d Time (Source) Location / / Volume Laterality Blood specimen 03/17/2015 9:00 AM 015 9:05 (specimen) EDT AM EDT Resulting Agency Comment Spec In Lab Alejo Garnett MD CHEMISTRY ORDERABLES Performing Organization Address City/State/[place] [address] CERNER MILLENNIUM (ABNORMAL) Lipid panel (fasting) (03/17/2015 9:00 AM EDT) athologist Signature Chol, Total 122 <=199 mg/dL CERNER MILLENNIUM Comment: Recommendations of the NCEP Adult Treatm ent Panel for the following risk cutoff thresholds for the [place] populatio n: Desirable: <200 mg/dL Borderline High: 200-239 mg/dL High: > or = 240 mg/dL Triglycerides 451 (H) <=149 mg/dL OHLLI COLEENN IU Comment: Reference Range: Normal triglycerides: ??<150 mg/dL Borderline high: ??150-199 mg/dL High: ??200-499 mg/dL Very high: ??>nv=994 mg/dL SERENA 2001; 285(19):6965-7916 HDL 22 (L) >=40 mg/dL HOLLI [facility] Comment: Reference range: ??Low HDL: ?? < 40 mg/dL ??Normal: ?40-60 mg/dL ??Desirable: > 60 mg/dL SERENA 2001; 285(19):0942-1465 LDL Cholesterol Not Calculated <=99 mg/dL HOLLI Ramirez ILLENNIUM Comment: Since a calculated LDL value is not nery d for triglycerides greater than 400 mg/dl, a direct LDL determination is per formed instead. Reference range: ?? Optimal: ?<100 mg/dL ?? Near Optimal/Above Optimal: ?? 100-1 29 mg/dL ?? Borderline high: ?130-159 mg/dL ?? High: ? 160-189 mg/dL ?? Very high: ?>mz=004 mg/dL SERENA 2001: 285(19):3643-3811 Chol/HDL Ratio 5.5 ratio [facility] MILLSHELDONI UM Comment: A Cholesterol to HDL ratio below 4:1 is desirable. ??Studies suggest that increased CAD risk occurs at ratios abov e 5 for females and above 6 for men. ? [place] Heart Association ??(htt p://www.americanheart.org) ? [place] Int Med, 1994; 121:641 ? AM J Med, 1998; 105(1A):48S Specimen Anatomical Collection Method Collection Time Receive d Time (Source) Location / / Volume Laterality Blood specimen 03/17/2015 9:00 AM 015 9:05 (specimen) EDT AM EDT Resulting Agency Comment Spec In Lab Alejo Garnett MD CHEMISTRY ORDERABLES Performing Organization Address City/[facility]/ZIP [facility] [place] [address] CERNER MILLENNIUM (ABNORMAL) Reticulocyte [...] Garnett MD HEMATOLOGY ORDERABLES Performing Organization Address City/[facility] [place] [address] CERNER MILLENNIUM (ABNORMAL) CMP [...] of Diabetes Mellitus, Position Statement from the [place] Diabetes Association. ??Diabete s Care, Volume 33, [...] the following links into your internet browser. http://[employer]/DHnkdep http://[employer]/DHMCnkf Specimen Anatomical Collection Method Collection Time Receive d Time (Source) Location / / Volume Laterality Blood specimen 03/17/2015 9:00 AM 015 9:05 (specimen) EDT AM EDT Resulting Agency Comment Spec In Lab Alejo Garnett MD CHEMISTRY ORDERABLES Performing Organization Address City/[facility]/ZIP Code Phon e Number [address] CERNER MILLENNIUM U24 Hrs and [...] CHEMISTRY ORDERABLES Performing Organization Address City/[facility]/ZIP [facility] [place] [address] CERNER MILLENNIUM Uric acid, urine, [...] City/[facility]/ZIP Code Phon e Number [address] CERNER MILLENNIUM Phosphorus, urine, [...] Garnett MD URINE ORDERABLES Performing Organization Address [facility] Phon e Number [address] CERNER MILLENNIUM (ABNORMAL) Calcium, urine, 24 hour (03/17/2015 4:00 AM EDT) P athologist Signature U24 Ca Conc <0.8 mg/dL [facility] MILLENNIUM Comment: result rechecked-NM U24 Ca Calc [...] Garnett MD URINE ORDERABLES Performing Organization Address [facility]/ZIP Code Phon e Number [address] CERNER MILLENNIUM (ABNORMAL) Creatinine, [...] Address City/[facility]/[place] [address] CERNER MILLENNIUM (ABNORMAL) Creatinine [...] City/[facility]/ZIP Code Phon e Number [address] CERNER MILLENNIUM (ABNORMAL) Protein, [...] Address City/[facility]/[place] [address] CERNER MILLENNIUM documented in this encounter Visit Diagnoses Diagnosis Transplanted kidney Kidney replaced by transplant Need for prophylactic immunotherapy Aftercare following organ transplant documented in this encounter Care Teams Fabric Separator Operator Relationship Specialty Start Date End Date Violetta Sanford MD PCP - General 04/02/14 [address] [place] [address] documented as of this encounter
--- OUTSIDE RECORDS SUMMARY | 2022-06-16 12:30 | XMS_ITS | Encounter Summary ---
:1955 Author Organization [facility] [place] [address] Care Team Providers Name Role Phone Violetta Sanford MD Primary Care Provider Encounter Details Date Type Department Care Team Description [facility] Angel Mccann d kidney Encounter Series A, [facility] [address] [place] TRANS[place] [id number] SURGERY [phone] [place] [address] Social History Tobacco Use Types Packs/Day Years [...] Hematology and Oncology 06/21/2022 Office Visit Neurology Tlyer Rojas MD [facility] Neurology [place], [place] [phone] (Wo rk) 06/29/2022 Appointment Cardiology Violetta Sanford M D [address] [place] [address] (Wo rk) 06/30/2022 Infusion Hematology and Oncology 07/14/2022 Infusion Hematology and Oncology 07/28/2022 Infusion Hematology and Oncology 08/11/2022 Infusion Hematology and Oncology 08/16/2022 Office Visit Audiology Mindy Moody [facility]UD [facility] AUDIOLOGY [place], [place] [address] (Wo rk) 11/04/2022 Office Visit Rheumatology Dante Freedman, PA [facility] RHEUMATOLOGY [place], [place] [address] (Wo rk) documented as of this encounter Visit Diagnoses Diagnosis Transplanted kidney Kidney replaced by transplant documented in this encounter Care Teams Digital Content Producer Relationship Specialty Start Date End Date Violetta Sanford MD PCP - General 04/02/14 [address] [place] [address] documented as of this encounter
--- OUTSIDE RECORDS SUMMARY | 2022-06-16 12:30 | XMS_ITS | Encounter Summary ---
:1955 Author Organization [facility] [address] Care Team Providers Name Role Phone Violetta Sanford MD Primary Care Provider Reason for Visit Reason Onset Date Comments Advice Only 04/04/2014 Encounter Details Date Type Department Care Team Description 04/04/2014 Telephone Urology at [facility] Milton Williamson MD Advice Only [facility] Giovana tyler [facility] [place] [address] UROLOGY DEPT [phone] [place], [place] [address] (Wo rk) Social History Tobacco [...] Rojas MD [facility] Neurology [address] [address], [place] [phone] (Wo rk) 06/29/2022 Appointment Cardiology Violetta Sanford M D [address] [place] [address] (Wo rk) 06/30/2022 Infusion Hematology and Oncology 07/14/2022 Infusion Hematology and Oncology 07/28/2022 Infusion Hematology and Oncology 08/11/2022 Infusion Hematology and Oncology 08/16/2022 Office Visit Audiology Mindy Moody AUD [facility] AUDIOLOGY DEPT [place], [place] [address] (Wo rk) 11/04/2022 Office Visit Rheumatology Dante Freedman PA [facility] RHEUMATOLOGY [place], [place] [address] (Wo rk) documented as of this encounter Visit Diagnoses Not on filedocumented in this encounter Care Teams Vp Purchasing Relationship Specialty Start Date End Date Violetta Sanford MD PCP - General 04/02/14 [address] [place], [place] [address] documented as of this encounter
--- OUTSIDE RECORDS SUMMARY | 2022-06-16 12:30 | XMS_ITS | Encounter Summary ---
:1955 Author Organization [facility] [place] [address] Care Team Providers Name Role Phone Violetta Sanford MD Primary Care Provider Encounter Details Date Type Department Care Team Description 04/03/2014 Anesthesia Event Main Operating Room Torsten Dotson MD [facility] [place] [address] [facility] Van Walker MD [facility] [place] [address] [facility] [place] [address] Anesthesia Record Procedure Summary Procedure Name Responsible Anesthesia Start Anesthesia Stop Anesthesiologist Time Time HYDROCELECTOMY, UNILATERAL (WRVU 5.45) (Left: Scrotum) Events No events on file. No [...] BELOW-KNEE performed by HENNA GAMINO JR at [facility] MAIN OR ??? Lap, appendectomy 06/16/2013 LAPAROSCOPIC APPENDECTOMY performed by Angel Mccann MD at [facility] OR History Substance Use [...] Assessment: (+) upper dentures Comment: Edentulous lower. [facility] Assessment: Anesthesia Plan: ASA 3 spinal, 60 [...] mother. Plan discussed with resident and attending. [facility]. Assessment: documented in this encounter Plan of Treatment Upcoming Encounters Date Type Specialty Care Team Description 06/16/2022 Infusion Hematology and Oncology 06/21/2022 Office Visit Neurology Tyler Rojas MD [facility] [address] [place], [place] [phone] (Wo rk) 06/29/2022 Appointment Cardiology Violetta Sanford M D [address] [place], [place] [address] (Wo rk) 06/30/2022 Infusion Hematology and Oncology 07/14/2022 Infusion Hematology and Oncology 07/28/2022 Infusion Hematology and Oncology 08/11/2022 Infusion Hematology and Oncology 08/16/2022 Office Visit Audiology Mindy Moody AUD [facility] AUDIOLOGY DEPT [place], [place] [address] (Wo rk) 11/04/2022 Office Visit Rheumatology Dante Freedman PA [facility] RHEUMATOLOGY [place], [place] [address] (Wo rk) documented as of this encounter Visit Diagnoses Not on filedocumented in this encounter Care Teams Highway Engineering Teacher Relationship Specialty Start Date End Date Violetta Sanford MD PCP - General 04/02/14 [address] [place], [place] [address] documented as of this encounter
--- OUTSIDE RECORDS SUMMARY | 2022-06-16 12:30 | XMS_ITS | Encounter Summary ---
:1955 Author Organization [facility] Address [place] [id number] Care Team Providers Name Role Phone Violetta Sanford MD Primary Care Provider Encounter Details Date Type Department Care Team Description 04/10/2014 Surgery Main Operating Room Marco Lemus MD Not Performed [facility] HYDROCELECTOMY, [facility] DR CERRATO (WRVU 5.45) [facility] [place] [address] [place] [address] [phone] Social History Tobacco Use Types Packs/Day Years [...] pen injection subcutaneously 2 times daily. Insulin Pyrites, Please use as 450 each 4 11/07/201304/19 [...] Rojas MD [facility] Neurology [place], [place] [phone] (Wo rk) 06/29/2022 Appointment Cardiology Violetta Sanford M D [facility] [address] [place] [address] (Wo rk) 06/30/2022 Infusion Hematology and Oncology 07/14/2022 Infusion Hematology and Oncology 07/28/2022 Infusion Hematology and Oncology 08/11/2022 Infusion Hematology and Oncology 08/16/2022 Office Visit Audiology Mindy Moody, [facility] AUDIOLOGY DEPT [place], [place] [address] (Wo rk) 11/04/2022 Office Visit Rheumatology Dante Freedman, PA [facility] RHEUMATOLOGY [place], [place] [address] (Wo rk) documented as of this encounter Procedures Procedure Name Priority Date/Time Associated Diagnosis Comme nts POCT GLUCOSE Routine 04/10/2014 2:02 PM Results f or this EDT procedure are i n the results section . documented in this encounter Results (ABNORMAL) POCT Glucose (04/10/2014 2:02 PM EDT) athologist Signature POC Glucose 281 (H) 60 [...] Organization Address City/State/[place] [address] CERNER MILLENNIUM documented in this encounter Visit Diagnoses Not on filedocumented in this encounter Active and Recently Administered Medications Care Teams Rocket Engine Mechanic Relationship Specialty Start Date End Date Violetta Sanofrd MD PCP - General 04/02/14 [address] [place] [address] documented as of this encounter
--- OUTSIDE RECORDS SUMMARY | 2022-06-16 12:30 | XMS_ITS | Encounter Summary ---
:1955 Author Organization [facility] Address [facility] [place] [address] Care Team Providers Name Role Phone Dc Lorenz MD Primary Care Provider Reason for Visit Reason Comments Hydrocele Encounter Details Date Type Department Care Team Description 02/13/2014 Office Visit Urology at [facility] Zane Ayala (Primary Dx); [facility] BERTA Lee Lower urinary tract [place] [address] UROLOGY DEPT. [phone] [place], [place] [address] Social History Tobacco Use Types [...] documented in this encounter Progress Notes Rosa Ayala APRN - 02/13/2014 11:03 AM EDT UROLOGY CLINIC NEW PATIENT ASSESSMENT Patient Name: Leroy Torres Patient Primary Care Provider: DC LORENZ MD Referring Provider: Dr. Rayo Caldwell History [...] operation 20 years ago byDr. [facility]se at [id number] what he thought was a left hydrocele. [...] after lap appendectomy in 05/2013 here at [facility]. He required mechanical ventilation [...] HEALTH: fair REVIEW OF SYSTEMS: Negative. -- TRIBAL JUDGE - No headaches or loss of consciousness [...] COPD, stage 3 HTN Asthma Chronic anxiety Vcpycpafxi-opslfzno-xsl after transplant Past Surgical History Procedure Date [...] BELOW-KNEE performed by HENNA GAMINO JR at [facility] MAIN OR ??? Lap, appendectomy 06/16/2013 LAPAROSCOPIC APPENDECTOMY performed by Angel Mccann MD at [facility] MAIN OR cardiac cath in 2005 Bilateral cataracts 76025 Sinus surgery 2010 History Social History ??? 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 Family history: none [...] prolonged hospital recovery s/p appendectomy here at [facility] In 05/2013 requiring ventillation. [...] Rojas MD [facility] Neurology [place], [place] [address] (Wo rk) 06/29/2022 Appointment Cardiology Violetta Sanford M D [address] [place] [address] (Wo rk) 06/30/2022 Infusion Hematology and Oncology 07/14/2022 Infusion Hematology and Oncology 07/28/2022 Infusion Hematology and Oncology 08/11/2022 Infusion Hematology and Oncology 08/16/2022 Office Visit Audiology Mindy Moody AUD [facility] AUDIOLOGY [place], [place] [address] (Wo rk) 11/04/2022 Office Visit Rheumatology Dante Freedman PA [facility] RHEUMATOLOGY [place], [place] [address] (Wo rk) documented as of this encounter Visit Diagnoses Diagnosis Hydrocele - Primary Hydrocele, unspecified Lower urinary tract symptoms Other symptoms involving urinary system documented in this encounter Care Teams Loan Assistant Relationship Specialty Start Date End Date Dc Lorenz MD PCP - General 04/02/13 04/01/14 [facility] [address] [place] [address] documented as of this encounter
--- OUTSIDE RECORDS SUMMARY | 2022-06-16 12:30 | XMS_ITS | Encounter Summary ---
:1955 Author Organization [place] [address] Care Team Providers Name Role Phone Dc Ibanez MD Primary Care Provider Encounter Details Date Type Department Care Team Description 02/25/2014 Hospital Encounter Laboratory Violetta Sanford MD [address] [place] [id number] [phone] (Wo rk) Social History Tobacco Use Types [...] pen injection subcutaneously 2 times daily. Insulin [place], Please use as 450 each 4 11/07/201304/19 [...] Rojas MD [facility] Neurology [place], [place] [address] (Wo rk) 06/29/2022 Appointment Cardiology Violetta Sanford M D [address] [place] [address] (Wo rk) 06/30/2022 Infusion Hematology and Oncology 07/14/2022 Infusion Hematology and Oncology 07/28/2022 Infusion Hematology and Oncology 08/11/2022 Infusion Hematology and Oncology 08/16/2022 Office Visit Audiology Mindy Moody AUD [facility] AUDIOLOGY DEPT [place], [place] [address] (Wo rk) 11/04/2022 Office Visit Rheumatology Dante Freedman PA [facility] RHEUMATOLOGY [place], [place] [address] (Wo rk) documented as of [...] 30 - 300 Clinical Albuminuria ?? >300 *[place] [employer]. Diabetic Nephropathy. Diabetes Care 1997;(Suppl [...] Sanford MD URINE ORDERABLES Performing Organization Address City/[facility]/ZIP Code Phon e Number [address] CERNER MILLENNIUM TSH (02/25/2014 10:01 AM EDT) P athologist Signature TSH 2.91 0.27 - 4.20 CERNER mcIU/mL MILLENNIUM Specimen Anatomical Collection Method Collection Time Receive d Time (Source) Location / / Volume Laterality Blood specimen 02/25/2014 10:01 4 (specimen) AM EDT 10:14 AM EDT Resulting Agency Comment Spec In Lab Violetta Sanford MD CHEMISTRY ORDERABLES Performing Organization Address City/[facility]/ZIP Code Phon e Number [address] CERNER MILLENNIUM documented in this encounter Visit Diagnoses Not on filedocumented in this encounter Care Teams Residential Energy Auditor Relationship Specialty Start Date End Date Dc Ibanez MD PCP - General 04/02/13 04/01/14 [facility] 1 [address] [place] [address] documented as of this encounter
--- OUTSIDE RECORDS SUMMARY | 2022-06-16 12:30 | XMS_ITS | Encounter Summary ---
:1955 Author Organization [place] [address] Care Team Providers Name Role Phone Dc Ibanez MD Primary Care Provider Encounter Details Date Type Department Care Team Description 02/11/2014 Orders Only Urology at [facility] Adair Goodman Scrotal pain (Primary [facility] BERTA Lee Dx) [place] [address] UROLOGY DEPT. [place], [place] [address] Social History Tobacco Use Types [...] Rojas MD [facility] Neurology [place], [place] [phone] (Wo rk) 06/29/2022 Appointment Cardiology Violetta Sanford M D [address] [place] [address] (Wo rk) 06/30/2022 Infusion Hematology and Oncology 07/14/2022 Infusion Hematology and Oncology 07/28/2022 Infusion Hematology and Oncology 08/11/2022 Infusion Hematology and Oncology 08/16/2022 Office Visit Audiology Mindy Moody AUD [facility] AUDIOLOGY DEPT [place], [place] [address] (Wo rk) 11/04/2022 Office Visit Rheumatology Dante Freedman PA [facility] RHEUMATOLOGY [place], [place] [address] (Wo rk) documented as of this encounter Results US scrotum (02/13/2014 10:41 AM EDT) Anatomical Region Laterality Modality Pelvis Ultrasound Specimen (Source) Anatomical Collection Method Collection Time Re ceived Time Location / / Volume Laterality 02/13/2014 10:41 AM EDT Narrative 02/13/2014 11:34 AM EDT Scrotal ?(Signed Final 02/13/2014 11:33 ? am) Patient Info ID #: ? [id number] ?: ??[birth year] (58 yrs) Name: ? LEROY DAILEY ? Visit Date: 02/13/2014 10:10 am Performed By Performed By: ?Sharan [facility], Loretta Associate: ? Chris HAWK, Nikolay Freed Attending: ? Deirdre HAWK, Phyllis Gil Referred By: ? LAURA GOODMAN ALUMNI RELATIONS MANAGER Service(s) Provided ??[facility] - Ultrasound Scrotum and Contents with ?12513, 05015 ??Vascular - [id number], [id number] Indications ??Scrotal pain Comparison None available. Right [...] 02/13/2014 11:33 am) Patient Info ID #: [id number] : 51 (58 y rs) Name: LEROY DAILEY Visit Date: 01/23 10:10 am Performed By Performed By: Loretta Tsang RDMS Associate: Nikolay Perez MD Attending: Phyllis Gilmore MD Referred By: LAURA CASAS Service(s) Provided [facility] - Ultrasound Scrotum and Contents [place] ith [address], [address] Vascular - [id number], [id number] Indications Scrotal pain Comparison None available. Right [...] ans documented in this encounter Care Teams Paste Mixer Relationship Specialty Start Date End Date Dc Ibanez MD PCP - General 04/02/13 04/01/14 [facility] 1 [address] [place] [address] documented as of this encounter
--- OUTSIDE RECORDS SUMMARY | 2022-06-16 12:30 | XMS_ITS | Encounter Summary ---
:1955 Author Organization [facility] [place] [address] Care Team Providers Name Role Phone Violetta Sanford MD Primary Care Provider Encounter Details Date Type Department Care Team Description 04/10/2014 Anesthesia Event Main Operating Room Jocy Lyn [facility] [place] [address] [place] [address] [phone] Anesthesia Record Procedure Summary Procedure Name Responsible [...] [facility] ??? Lap, appendectomy 06/16/2013 LAPAROSCOPIC APPENDECTOMY performed by Angel Mccann MD at [facility] MAIN OR History Substance Use Topics ??? [...] for GETA. Region - Other Informed Consent: [facility] [place] [place]. Assessment: documented in this encounter Plan of Treatment Upcoming Encounters Date Type Specialty Care Team Description 06/16/2022 Infusion Hematology and Oncology 06/21/2022 Office Visit Neurology Tyler Rojas MD [facility] Dr [address] [place], [place] [address] (Wo rk) 06/29/2022 Appointment Cardiology Violetta Sanford M D [address] [place], [place] [address] (Wo rk) 06/30/2022 Infusion Hematology and Oncology 07/14/2022 Infusion Hematology and Oncology 07/28/2022 Infusion Hematology and Oncology 08/11/2022 Infusion Hematology and Oncology 08/16/2022 Office Visit Audiology Mindy Moody, [facility] AUDIOLOGY DEPT [place], [place] [address] (Wo rk) 11/04/2022 Office Visit Rheumatology Dante Freedman PA [facility] RHEUMATOLOGY [place], [place] [address] (Wo rk) documented as of this encounter Visit Diagnoses Not on filedocumented in this encounter Care Teams Photographic Reproduction Technician Relationship Specialty Start Date End Date Violetta Sanford MD PCP - General 04/02/14 [address] [place], [place] [address] documented as of this encounter
--- OUTSIDE RECORDS SUMMARY | 2022-06-16 12:30 | XMS_ITS | Encounter Summary ---
:1955 Author Organization [place] [address] Care Team Providers Name Role Phone Violetta Sanford MD Primary Care Provider Reason for Visit Reason Comments Cyst Encounter Details Date Type Department Care Team Description 04/10/2014 Emergency Emergency Department Sylvia vega, Karen Caban MD [facility] [place] [address] [place] [address] [phone] (Wo rk) Social History Tobacco Use Types [...] pen injection subcutaneously 2 times daily. Insulin [place], Please use as 450 each 4 11/07/201304/19 [...] PM EDT Pt referred to ED from [facility], his surgery was cancelled, a hydrocele [...] Rojas MD [facility] [address] [place], [place] [address] (Wo rk) 06/29/2022 Appointment Cardiology Violetta Sanford M D [address] [place] [address] (Wo rk) 06/30/2022 Infusion Hematology and Oncology 07/14/2022 Infusion Hematology and Oncology 07/28/2022 Infusion Hematology and Oncology 08/11/2022 Infusion Hematology and Oncology 08/16/2022 Office Visit Audiology Minyd Moody, [facility] AUDIOLOGY DEPT [place], [place] [address] (Wo rk) 11/04/2022 Office Visit Rheumatology Dante Freedman PA [facility] RHEUMATOLOGY [place], [place] [address] (Wo rk) documented as of [...] PM 014 3:29 (specimen) EDT PM EDT Md Emergency Dept POINT OF CARE TEST ORDERABLE S Performing Organization Address City/State/ZIP [place] [address] [facility] documented in this encounter Visit Diagnoses Diagnosis Carbuncle Carbuncle and furuncle of unspecified si te documented in this encounter Care Teams Supervisor Grove Relationship Specialty Start Date End Date Violetta Sanford MD PCP - General 04/02/14 [address] [place], [place] [address] documented as of this encounter
--- OUTSIDE RECORDS SUMMARY | 2022-06-16 12:30 | XMS_ITS | Encounter Summary ---
:1955 Author Organization [facility] Address [facility] [place] [address] Care Team Providers Name Role Phone Dc Ibanez MD Primary Care Provider Encounter Details Date Type Department Care Team Description 11/22/2013 Follow-Up [place]rology at [facility] Angel Boyd MD Tremor/tics ([facility] Dx) [place] [address] NEUROLOGY DEPT. [phone] [place] [address] (Wo rk) Social History Tobacco Use Types [...] He is working on that with a agency director. He is being closely followed by the [...] Rojas MD [facility] Neurology [place], [place] [address] (Oscar escobedo) 06/29/2022 Appointment Cardiology Violetta Sanford M D [address] [place] [address] (Oscar escobedo) 06/30/2022 Infusion Hematology and Oncology 07/14/2022 Infusion Hematology and Oncology 07/28/2022 Infusion Hematology and Oncology 08/11/2022 Infusion Hematology and Oncology 08/16/2022 Office Visit Audiology Mindy Moody AUD [facility] AUDIOLOGY [place], [place] [address] (Wo rk) 11/04/2022 Office Visit Rheumatology Dante Freedman PA [facility] RHEUMATOLOGY [place], [place] [address] (Wo rk) documented as of this encounter Visit Diagnoses Diagnosis Tremor/tics - Primary Abnormal involuntary movements documented in this encounter Care Teams Waste Machine Operator Relationship Specialty Start Date End Date Dc Ibanez MD PCP - General 04/02/13 04/01/14 [facility] [address] [place] [address] documented as of this encounter
--- OUTSIDE RECORDS SUMMARY | 2022-06-16 12:30 | XMS_ITS | Encounter Summary ---
:1955 Author Organization [facility] [place] [address] Care Team Providers Name Role Phone Dc Ibanez MD Primary Care Provider Encounter Details Date Type Department Care Team Description 02/13/2014 Hospital Encounter Ultrasound at [facility] Scrotal pain [facility] [place] [address] Social History Tobacco Use Types Packs/Day [...] pen injection subcutaneously 2 times daily. Insulin [place], Please use as 450 each 4 11/07/201304/19 [...] MD [facility] Neurology [place], [place] [address] (Wo rk) 06/29/2022 Appointment Cardiology Violetta Sanford M D [address] [place] [address] (Wo rk) 06/30/2022 Infusion Hematology and Oncology 07/14/2022 Infusion Hematology and Oncology 07/28/2022 Infusion Hematology and Oncology 08/11/2022 Infusion Hematology and Oncology 08/16/2022 Office Visit Audiology Mindy Moody AUD [facility] AUDIOLOGY DEPT [place], [place] [address] (Wo rk) 11/04/2022 Office Visit Rheumatology Dante Freedman PA [facility] RHEUMATOLOGY [place], [place] [address] (Wo rk) documented as of [...] ? am) Patient Info ID #: ? [id number] ?: ??[birth year] (58 yrs) Name: ? LEROY DAILEY ? Visit Date: 02/13/2014 10:10 am Performed By Performed By: ?Sahran HAMMONDNH, Loretta Associate: ? Chris HAWK, Nikolay Freed Attending: ? Deirdre HWAK, Phyllis Gil Referred By: ? LAURA CASAS Service(s) Provided ??[facility] - Ultrasound Scrotum and Contents with ?27914, 14552 ??Vascular - [id number], [id number] Indications ??Scrotal pain Comparison None available. Right [...] 02/13/2014 11:33 am) Patient Info ID #: [id number] : 51 (58 y rs) Name: LEROY DAILEY Visit Date: 01/23 10:10 am Performed By Performed By: Loretta Tsang RDMS Associate: Nikolay Perez MD Attending: Phyllis Gilmore MD Referred By: LAURA CASAS Service(s) Provided [facility] - Ultrasound [place]rotum [place] ith [address], [address] Vascular - [id number], [id number] Indications Scrotal pain Comparison None available. Right [...] ans documented in this encounter Care Teams Product Strategy Director Relationship Specialty Start Date End Date Dc Ibanez MD PCP - General 04/02/13 04/01/14 [facility] [address] [place] [address] documented as of this encounter
--- OUTSIDE RECORDS SUMMARY | 2022-06-16 12:30 | XMS_ITS | Encounter Summary ---
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 Tremor/tics [phone] [place] [address] (Wo rk) Social History Tobacco Use Types [...] except that he had an unexpected trip assisted to the emergency room a week ago [...] Rojas MD [facility] Neurology [place], [place] [address] (Wo rk) 06/29/2022 Appointment Cardiology Violetta Sanford M D [address] [place] [address] (Wo gregg) 06/30/2022 Infusion Hematology and Oncology 07/14/2022 Infusion Hematology and Oncology 07/28/2022 Infusion Hematology and Oncology 08/11/2022 Infusion Hematology and Oncology 08/16/2022 Office Visit Audiology Mindy Moody AUD [facility] AUDIOLOGY DEPT [place], [place] [address] (Wo rk) 11/04/2022 Office Visit Rheumatology Dante Freedman PA [facility] RHEUMATOLOGY [place], [place] [address] (Wo rk) documented as of [...] movements documented in this encounter Care Teams Agricultural Extension Agent Relationship Specialty Start Date End Date Violetta Sanford MD PCP - General 04/02/14 [address] [place] [address] documented as of this encounter
--- OUTSIDE RECORDS SUMMARY | 2022-06-16 12:30 | XMS_ITS | Encounter Summary ---
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 ??? Insulin [place], Disposable, (BD INSULIN PEN NEEDLE UF SHORT) 31 X 5/16 Ndle Please use as directed. 3 month [...] Location PULSE 67 63 TEMPERATURE RESPIRATIONS Height (American) 6' 3 Height (Metric) 190.5 cm Weight (American) 328 lbs 327 lbs Weight (Metric) 148.78 [...] Rojas MD [facility] Neurology [place], [place] [address] (Wo rk) 06/29/2022 Appointment Cardiology Violetta Sanford M D [address] [place] [address] (Wo rk) 06/30/2022 Infusion Hematology and Oncology 07/14/2022 Infusion Hematology and Oncology 07/28/2022 Infusion Hematology and Oncology 08/11/2022 Infusion Hematology and Oncology 08/16/2022 Office Visit Audiology Mindy Moody AUD [facility] AUDIOLOGY DEPT [place], [place] [address] (Wo rk) 11/04/2022 Office Visit Rheumatology Dante Freedman PA [facility] RHEUMATOLOGY [place], [place] [address] (Wo rk) [...] Results (ABNORMAL) Creatinine (05/31/2014 10:22 AM EST) P athologist Signature Creatinine 1.62 (H) 0.80 - CERNER 1.50 mg/dL [facility] Comment: Please note that the pediatric reference intervals supplied above were not validated at [facility]. Results from pediatri [...] the following links into your internet browser. [email or web address] Specimen Anatomical Collection Method Collection Time Receive d Time (Source) Location / / Volume Laterality Blood specimen 05/31/2014 10:22 4 (specimen) AM EST 10:30 AM EST Resulting Agency Comment Spec In Lab Donell Hernandez MD CHEMISTRY ORDERABLES Performing Organization Address City/State/ZIP Code Phon e Number [place] [id number] HOSPITAL LAB[address] [facility] (ABNORMAL) Hemoglobin A1c (05/31/2014 10:22 AM EST) Analysis Performed At Patho logist Time Signature Hemoglobin A1C 9.7 (H) <=5.6 % [facility] Comment: Reference Range: 4.3 - 5.6% 5.7 [...] 1, S67-74 Est Avg Gluc 232 mg/dL [facility] Comment: eAG equivalents for HbA1c percentages: HbA1c(%) ?eAG(mg/dL) 6.0 ?126 6.5 ?140 7.0 ?154 7.5 ?169 8.0 ?183 8.5 ?197 9.0 ?212 9.5 ?226 10.0 ? 240 Limitations: The eAG calculation has not been validated on women, individuals below 18 years old and above 70 years old, and individuals with hemoglobinopathies. Additional resources are available on [facility] website: [email or web address] OK[facility] CITYadacalc Scooby MALDONADO, Nba J, Sydnee R, et al. ??Tr anslating the A1C assay into estimated average glucose values. ??Diabetes Care 2008:31(8):5280-5397. Specimen Anatomical Collection Method Collection Time Receive d Time (Source) Location / / Volume Laterality Blood specimen 05/31/2014 10:22 4 (specimen) AM EST 10:31 AM EST Resulting Agency Comment Spec In Lab Donell Hernandez MD CHEMISTRY ORDERABLES Performing Organization Address City/State/[place] [address] [facility] (ABNORMAL) Creatinine (01/18/2014 12:29 PM EDT) athologist Signature Creatinine 1.61 (H) 0.80 - CERNER 1.50 mg/dL [facility] Comment: Please note that the pediatric reference intervals supplied above were not validated at [facility]. Results from pediatri [...] the following links into your internet browser. [email or web address] OKLAHOMA CITYnkf Specimen Anatomical Collection Method Collection Time Receive d Time (Source) Location / / Volume Laterality Blood specimen 01/18/2014 12:29 4 (specimen) PM EDT 12:32 PM EDT Resulting Agency Comment Spec In Lab Donell Hernandez MD CHEMISTRY ORDERABLES Performing Organization Address City/State/ZIP Code Phon e Number [place] [phone] HOSPITAL LAB[address]ORY Drive [facility] (ABNORMAL) Hemoglobin A1c (01/18/2014 12:29 PM EDT) Analysis Performed At [facility] Time Signature Hemoglobin A1C 8.4 (H) <=5.6 % [facility] Comment: Reference Range: 4.3 ? 5.6% 5.7 [...] 1, S67-74 Est Avg Gluc 194 mg/dL [facility] Comment: eAG equivalents for HbA1c percentages: HbA1c(%) ?eAG(mg/dL) 6.0 ?126 6.5 ?140 7.0 ?154 7.5 ?169 8.0 ?183 8.5 ?197 9.0 ?212 9.5 ?226 10.0 ? 240 Limitations: The eAG calculation has not been validated on women, individuals below 18 years old and above 70 years old, and individuals with hemoglobinopathies. Additional resources are available on ADA website: [email or web address] Scooby MALDONADO, Nba J, Sydnee R, et al. ??Tr anslating the A1C assay into estimated average glucose values. ??Diabetes Care 2008:31(8):9486-3045. Specimen Anatomical Collection Method Collection Time Receive d Time (Source) Location / / Volume Laterality Blood specimen 01/18/2014 12:29 4 (specimen) PM EDT 12:32 PM EDT Resulting Agency Comment Spec In Lab Donell Hernandez MD CHEMISTRY ORDERABLES Performing Organization Address City/State/[place] [address] HOSPITAL LABORATORY [facility] documented in this encounter Visit Diagnoses Diagnosis [...] (mild) documented in this encounter Care Teams Winery Cellar Hand Relationship Specialty Start Date End Date Dc Ibanez MD PCP - General 04/02/13 04/01/14 A[facility] [address] [place] [address] documented as of this encounter
--- OUTSIDE RECORDS SUMMARY | 2022-06-16 12:30 | XMS_ITS | Encounter Summary ---
:1955 Author Organization [facility] Address [facility] [place] [address] Care Team Providers Name Role Phone Violetta Sanford MD Primary Care Provider Reason for Visit Reason Onset Date Comments Medication Refill 08/08/2014 Encounter Details Date Type Department Care Team Description 08/08/2014 Refill Endocrinology at [facility] C Donell Hernandez MD Type II or unspecified [facility] D rive [facility] [place] [address] [address] [address] with neurological [phone] ENDOCRINOLOGY DE PT. manifestations, [place] [id number] 6 uncontrolled [phone] (Wo rk) Social History Tobacco Use Types [...] 05/31/14. Placed call to Kylah Lucas in [place], spoke with Brie who states they did not receive it transferred to pharmacist to call in. documented in this encounter Plan of Treatment Upcoming Encounters Date Type Specialty Care Team Description 06/16/2022 Infusion Hematology and Oncology 06/21/2022 Office Visit Neurology Tyler Rojas MD [facility] Neurology [place], [place] [phone] (Wo rk) 06/29/2022 Appointment Cardiology Violetta Sanford M D [address] [place], [place] [address] (Wo rk) 06/30/2022 Infusion Hematology and Oncology 07/14/2022 Infusion Hematology and Oncology 07/28/2022 Infusion Hematology and Oncology 08/11/2022 Infusion Hematology and Oncology 08/16/2022 Office Visit Audiology Mindy Moody AUD [facility] AUDIOLOGY [place], [place] [address] (Wo rk) 11/04/2022 Office Visit Rheumatology Dante Freedman PA [facility] RHEUMATOLOGY [place], [place] [address] (Wo rk) documented as of this encounter Visit Diagnoses Diagnosis Type II or unspecified type diabetes fredo litus with neurological manifestations, uncontrolled(250.62) Type II or unspecified type diabetes fredo litus with neurological manifestations, uncontrolled documented in this encounter Care Teams Assigner Relationship Specialty Start Date End Date Violetta Sanford MD PCP - General 04/02/14 [address] [place], [place] [id number] documented as of this encounter
--- OUTSIDE RECORDS SUMMARY | 2022-06-16 12:30 | XMS_ITS | Encounter Summary ---
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 Tremor/tics; [phone] [place], [place] [address] Diabetes mellitus with neuropathy [phone] (Wo rk) Social History Tobacco Use Types [...] Neurology Tyler Rojas MD [facility] Neurology [place], [place] [phone] (Wo gregg) 06/29/2022 Appointment Cardiology Violetta Sanford M D [address] [place] [address] (Oscar escobedo) 06/30/2022 Infusion Hematology and Oncology 07/14/2022 Infusion Hematology and Oncology 07/28/2022 Infusion Hematology and Oncology 08/11/2022 Infusion Hematology and Oncology 08/16/2022 Office Visit Audiology Mindy Moody AUD [facility] AUDIOLOGY DEPT [place], [place] [address] (Wo rk) 11/04/2022 Office Visit Rheumatology Dante Freedman PA [facility] RHEUMATOLOGY [place], [place] [address] (Wo rk) documented as of [...] uncontrolled documented in this encounter Care Teams Stem Roller Relationship Specialty Start Date End Date Violetta Sanford MD PCP - General 04/02/14 [address] [place] [address] documented as of this encounter
--- OUTSIDE RECORDS SUMMARY | 2022-06-16 12:30 | XMS_ITS | Encounter Summary ---
:1955 Author Organization [place] [address] Care Team Providers Name Role Phone Violetta Sanford MD Primary Care Provider Reason for Visit Reason Comments Diabetes Encounter Details Date Type Department Care Team Description 11/20/2014 Office Visit Endocrinology at [facility] Donell Hernandez, Type II or unspecified type diabetes mellitus with neurological manifestations, uncontrolled; [facility] Body mass index (BMI) of 36.0-36.9 in ad ult; [facility] S/P bilateral BKA (below kne e amputation); [place] [address] CENTER CKD (chronic kidney disease), stage II; [phone] ENDOCRINOLOGY History of yaniv queen transplant DEPT. 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 Insulin [place], Disposable, (BD INSULIN PEN NEEDLE UF SHORT) [...] Tyler Rojas MD [facility] Neurology [place], [place] [phone] (Wo rk) 06/29/2022 Appointment Cardiology Violetta Sanford M D [address] [place] [address] (Wo rk) 06/30/2022 Infusion Hematology and Oncology 07/14/2022 Infusion Hematology and Oncology 07/28/2022 Infusion Hematology and Oncology 08/11/2022 Infusion Hematology and Oncology 08/16/2022 Office Visit Audiology Mindy Moody AUD [facility] AUDIOLOGY DEPT [place], [place] [address] (Wo rk) 11/04/2022 Office Visit Rheumatology Dante Freedman PA [facility] RHEUMATOLOGY [place], [place] [address] (Wo rk) documented as of [...] Results (ABNORMAL) Creatinine (06/30/2015 9:09 AM EST) athologist Signature Creatinine 1.77 (H) 0.80 - CERNER 1.50 mg/dL [facility] Comment: Please note that the pediatric reference intervals supplied above were not validated at [facility]. Results from pediatri c patients should be [...] the following links into your internet browser. [email or web address] [email or web address]://Art Sumo/[facility] CORDELLnkf Specimen Anatomical Collection Method Collection Time Receive d Time (Source) Location / / Volume Laterality Blood specimen 06/30/2015 9:09 AM 015 9:19 (specimen) EST AM EST Resulting Agency Comment Spec In Lab Donell Hernandez MD CHEMISTRY ORDERABLES Performing Organization Address City/State/ZIP Code Phon e Number [place] [phone] [facility] (ABNORMAL) Hemoglobin A1c (06/30/2015 9:09 AM EST) Analysis Performed At [facility] Time Signature Hemoglobin A1C 8.6 (H) 4.3 - 5.6 [facility] Comment: Reference Range: 4.3 - 5.6% [...] Mellitus, Diabetes Care 2013; 36: Suppl. 1, L57-92 Est Avg Gluc 200 mg/dL [facility] Comment: eAG equivalents for HbA1c percentages: HbA1c(%) ?eAG(mg/dL) 6.0 ?126 6.5 ?140 7.0 ?154 7.5 ?169 8.0 ?183 8.5 ?197 9.0 ?212 9.5 ?226 10.0 ? 240 Limitations: The eAG calculation has not been validated on women, individuals below 18 years old and above 70 years old, and individuals with hemoglobinopathies. Additional resources are available on [facility] website: http://Art Sumo/[facility] CORDELLadacalc Scooby MALDONADO, Nba J, Sydnee R, et al. ??Tr anslating the A1C assay into estimated average glucose values. ??Diabetes Care 2008:31(8):8970-6909. Specimen Anatomical Collection Method Collection Time Receive d Time (Source) Location / / Volume Laterality Blood specimen 06/30/2015 9:09 AM 015 9:19 (specimen) EST AM EST Resulting Agency Comment Spec In Lab Donell Hernandez MD CHEMISTRY ORDERABLES Performing Organization Address City/State/ZIP [place] [address] [facility] (ABNORMAL) Creatinine (11/20/2014 8:50 AM EDT) athologist Signature Creatinine 1.54 (H) 0.80 - CERNER 1.50 mg/dL [facility] Comment: Please note that the pediatric reference intervals supplied above were not validated at [facility]. Results from pediatri c patients should be [...] the following links into your internet browser. [email or web address]://Art [email or web address] Specimen Anatomical Collection Method Collection Time Receive d Time (Source) Location / / Volume Laterality Blood specimen 11/20/2014 8:50 AM 015 9:01 (specimen) EDT AM EDT Resulting Agency Comment Spec In Lab Donell Hernandez MD CHEMISTRY ORDERABLES Performing Organization Address City/State/[place] [address] [facility] (ABNORMAL) Hemoglobin [...] Mellitus, Diabetes Care 2013; 36: Suppl. 1, K37-48 Est Avg Gluc 209 mg/dL [facility] Comment: eAG equivalents for HbA1c percentages: HbA1c(%) ?eAG(mg/dL) 6.0 ?126 6.5 ?140 7.0 ?154 7.5 ?169 8.0 ?183 8.5 ?197 9.0 ?212 9.5 ?226 10.0 ? 240 Limitations: The eAG calculation has not been validated on women, individuals below 18 years old and above 70 years old, and individuals with hemoglobinopathies. Additional resources are available on [place] website: http://Art Sumo/[facility] CORDELLadacalc Scooby MALDONADO, Nba J, Sydnee R, et al. ??Tr anslating the A1C assay into estimated average glucose values. ??Diabetes Care 2008:31(8):9533-0493. Specimen Anatomical Collection Method Collection Time Receive d Time (Source) Location / / Volume Laterality Blood specimen 11/20/2014 8:50 AM 015 9:01 (specimen) EDT AM EDT Resulting Agency Comment Spec In Lab Donell Hernandez MD CHEMISTRY ORDERABLES Performing Organization Address City/State/[place] [address] [facility] documented in this encounter Visit Diagnoses [...] transplant documented in this encounter Care Teams Police Captain Relationship Specialty Start Date End Date Violetta Sanford MD PCP - General 04/02/14 [address] [place] [address] documented as of this encounter
--- OUTSIDE RECORDS SUMMARY | 2022-06-16 12:30 | XMS_ITS | Encounter Summary ---
:1955 Author Organization [facility] [place] [address] Care Team Providers Name Role Phone Violetta Sanford MD Primary Care Provider Reason for Visit Reason Comments Dermatitis Encounter Details Date Type Department Care Team Description 03/10/2015 Office Visit Dermatology at [facility], DR CRISTIAN cote dermatitis [facility] Jose Mcginnis MD [facility] DR J CARLOS [place] [address] (Primary Dx) [address] [place] [address] Social History Tobacco Use Types Packs/Day [...] insulin aspart (NOVOLOG FLEXPEN) Insulin Pen; Insulin [place], Disposable, (BD INSULIN PEN NEEDLE UF SHORT) [...] by interface; Amputation Low Leg Thru Tib/Fib (68711) (06/21/2011); and Lap, Appendectomy (84963) (06/16/2013). Family Medical History No family history [...] the presence of Dr. Mcginnis: SKYLAR LOVE SERVICE TECH/WELDER and Purnima Eli, Clinical Scribe Iperformed the above scribed service and agree with the accuracy of the documentation in this encounter. Jose Mcginnis MD FAAD Section of Dermatology [facility] documented in this encounter Plan of Treatment Upcoming Encounters Date Type Specialty Care Team Description 06/16/2022 Infusion Hematology and Oncology 06/21/2022 Office Visit Neurology Tyler Rojas MD [facility] Neurology [place], [place] [phone] (Oscar escobedo) 06/29/2022 Appointment Cardiology Violetta Sanford M D [address] [place] [address] (Oscar escobedo) 06/30/2022 Infusion Hematology and Oncology 07/14/2022 Infusion Hematology and Oncology 07/28/2022 Infusion Hematology and Oncology 08/11/2022 Infusion Hematology and Oncology 08/16/2022 Office Visit Audiology Mindy Moody AUD [facility] AUDIOLOGY [place], [place] [address] (Wo rk) 11/04/2022 Office Visit Rheumatology Dante Freedman PA [facility] RHEUMATOLOGY [place], [place] [address] (Wo rk) documented as of this encounter Visit Diagnoses Diagnosis Contact dermatitis - Primary Contact dermatitis and other eczema, due to unspecified cause documented in this encounter Care Teams Automatic Log Cut Off Sawyer Relationship Specialty Start Date End Date Violetta Sanford MD PCP - General 04/02/14 [address] [place] [address] documented as of this encounter
--- OUTSIDE RECORDS SUMMARY | 2022-06-16 12:30 | XMS_ITS | Encounter Summary ---
:1955 Author Organization [facility] Address [place] [address] Care Team Providers Name Role Phone Violetta Sanford MD Primary Care Provider Encounter Details Date Type Department Care Team Description 05/31/2014 Office Visit [facility]ocrinology at [facility] Donell Hernandez, Type II or unspecified type diabetes mellitus with neurological manifestations, uncontrolled(250.62) (Primary Dx); [facility] Ulcer of amputation stump of foot; [facility] CKD (chronic kidney disease) , [place] [address] CENTER [phone] [address]PT. 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 Insulin [place], Disposable, (BD INSULIN PEN NEEDLE UF SHORT) [...] Neurology Tyler Rojas MD [facility] Neurology [place], [place] [phone] (Wo gregg) 06/29/2022 Appointment Cardiology Violetta Sanford M D [address] [place] [address] (Oscar escobedo) 06/30/2022 Infusion Hematology and Oncology 07/14/2022 Infusion Hematology and Oncology 07/28/2022 Infusion Hematology and Oncology 08/11/2022 Infusion Hematology and Oncology 08/16/2022 Office Visit Audiology Mindy Moody AUD [facility] AUDIOLOGY DEPT [place], [place] [address] (Wo rk) 11/04/2022 Office Visit Rheumatology Dante Freedman PA [facility] RHEUMATOLOGY [place], [place] [address] (Wo [...] 1.54 (H) 0.80 - CERNER 1.50 mg/dL [facility] Comment: Please note that the pediatric reference intervals supplied above were not validated at [facility]. Results from pediatri c patients should be [...] the following links into your internet browser. [email or web address] http://Pearlfection/[facility] WAURIKAnkf Specimen Anatomical Collection Method Collection Time Receive d Time (Source) Location / / Volume Laterality Blood specimen 11/20/2014 8:50 AM 015 9:01 (specimen) EDT AM EDT Resulting Agency Comment Spec In Lab Donell Hernandez MD CHEMISTRY ORDERABLES Performing Organization Address City/State/ZIP Code Phon e [place] OQUENDO [place] [phone] [address] [facility] (ABNORMAL) Hemoglobin A1c (11/20/2014 8:50 AM EDT) Analysis Performed At [facility] Time Signature Hemoglobin A1C 8.9 (H) 4.3 [...] 1, S67-74 Est Avg Gluc 209 mg/dL [facility] Comment: eAG equivalents for HbA1c percentages: HbA1c(%) ?eAG(mg/dL) 6.0 ?126 6.5 ?140 7.0 ?154 7.5 ?169 8.0 ?183 8.5 ?197 9.0 ?212 9.5 ?226 10.0 ? 240 Limitations: The eAG calculation has not been validated on women, individuals below 18 years old and above 70 years old, and individuals with hemoglobinopathies. Additional resources are available on th e ADA website: [email or web address]://Pearlfection/DHMCadacalc Scooby MALDONADO, Nba J, Sydnee R, et al. ??Tr anslating the A1C assay into estimated average glucose values. ??Diabetes Care 2008:31(8):6286-0444. Specimen Anatomical Collection Method Collection Time Receive d Time (Source) Location / / Volume Laterality Blood specimen 11/20/2014 8:50 AM 015 9:01 (specimen) EDT AM EDT Resulting Agency Comment Spec In Lab Donell Hernandez MD CHEMISTRY ORDERABLES Performing Organization Address City/[facility]/ZIP Code Phon e Number [address] [facility] (ABNORMAL) Creatinine (05/31/2014 10:22 AM EST) athologist Signature Creatinine 1.62 (H) 0.80 - CERNER 1.50 mg/dL [facility] Comment: Please note that the pediatric reference intervals supplied above were not validated at [facility]. Results from pediatri c patients should be interpreted in conjunction to the patient's age, height and muscle mass. Estimated GFR 44 (L) >=60 [facility] Comment: This estimated GFR (eGFR) [...] the following links into your internet browser. [email or web address] Specimen Anatomical Collection Method Collection Time Receive d Time (Source) Location / / Volume Laterality Blood specimen 05/31/2014 10:22 4 (specimen) AM EST 10:30 AM EST Resulting Agency Comment Spec In Lab Donell Hernandez MD CHEMISTRY ORDERABLES Performing Organization Address City/[facility]/[place] [address] CERNER [facility] (ABNORMAL) Hemoglobin A1c (05/31/2014 10:22 AM EST) [facility] Time Signature Hemoglobin A1C 9.7 (H) <=5.6 % [facility] Comment: Reference Range: 4.3 - 5.6% [...] 1, S67-74 Est Avg Gluc 232 mg/dL [facility] Comment: eAG equivalents for HbA1c percentages: HbA1c(%) ?eAG(mg/dL) 6.0 ?126 6.5 ?140 7.0 ?154 7.5 ?169 8.0 ?183 8.5 ?197 9.0 ?212 9.5 ?226 10.0 ? 240 Limitations: The eAG calculation has not been validated on women, individuals below 18 years old and above 70 years old, and individuals with hemoglobinopathies. Additional resources are available on [facility] website: [email or web address] Scooby MALDONADO, Nba Gilbert, Sydnee R, et al. ??Tr anslating the A1C assay into estimated average glucose values. ??Diabetes Care 2008:31(8):8356-3426. Specimen Anatomical Collection Method Collection Time Receive d Time (Source) Location / / Volume Laterality Blood specimen 05/31/2014 10:22 4 (specimen) AM EST 10:31 AM EST Resulting Agency Comment Spec In Lab Donell Hernandez MD CHEMISTRY ORDERABLES Performing Organization Address City/State/ZIP Code Phon e Number [place] [phone]OS[address] LAB[address] [facility] documented in this encounter Visit Diagnoses Diagnosis Type II or unspecified type diabetes fredo litus with neurological manifestations, uncontrolled(250.62) - Primary Type II or unspecified type diabetes fredo litus with neurological manifestations, uncontrolled Ulcer of amputation stump of foot CKD (chronic kidney disease), stage III Chronic kidney disease, Stage III (moder ate) documented in this encounter Care Teams Senior Manufacturing Supervisor Relationship Specialty Start Date End Date Violetta Sanford MD PCP - General 04/02/14 [address] [place] [address] documented as of this encounter
--- OUTSIDE RECORDS SUMMARY | 2022-06-16 12:30 | XMS_ITS | Encounter Summary ---
:1955 Author [address] [facility] [place] [address] Care Team Providers Name Role Phone Dc Ibanez MD Primary Care Provider Reason for Visit Reason Comments Other Encounter Details Date Type Department Care Team Description 02/19/2014 Telephone Urology at [facility] Rosa Ayala, [facility] [place] [address] [facility] [phone] UROLOGY DEPT. [place], [place] [address] (Wo rk) Social History [...] will let our OR alamo and Mariah' adult school teacher know. documented in this encounter Plan of Treatment Upcoming Encounters Date Type Specialty Care Team Description 06/16/2022 Infusion Hematology and Oncology 06/21/2022 Office Visit Neurology Tyler Rojas MD [facility] Neurology [place], [place] [phone] (Wo rk) 06/29/2022 Appointment Cardiology Violetta Sanford M D [address] [place], [place] [address] (Wo rk) 06/30/2022 Infusion Hematology and Oncology 07/14/2022 Infusion Hematology and Oncology 07/28/2022 Infusion Hematology and Oncology 08/11/2022 Infusion Hematology and Oncology 08/16/2022 Office Visit Audiology Mindy Moody AUD [facility] AUDIOLOGY DEPT [place], [place] [address] (Wo rk) 11/04/2022 Office Visit Rheumatology Dante Freedman PA [facility] RHEUMATOLOGY [place], [place] [address] (Wo rk) documented as of this encounter Visit Diagnoses Not on filedocumented in this encounter Care Teams Scow Captain Relationship Specialty Start Date End Date Dc Ibanez MD PCP - General 04/02/13 04/01/14 ANAMARIA 1 [address] [place] [address] documented as of this encounter
--- OUTSIDE RECORDS SUMMARY | 2022-06-16 12:30 | XMS_ITS | Encounter Summary ---
:1955 Author Organization [facility] [place] [address] Care Team Providers Name Role Phone Violetta Sanford MD Primary Care Provider Encounter Details Date Type Department Care Team Description 04/03/2014 Hospital Encounter Same Day Program at Diomedes Lemus MD Critical [facility] [place] [address] [place] [address] [phone] Social History Tobacco Use Types Packs/Day Years [...] pen injection subcutaneously 2 times daily. Insulin Protection, Please use as 450 each 4 11/07/201304/19 [...] Miscellaneous Notes Miscellaneous - Provider, Scanning - 04/03/2014 2:46 PM EDT documented in this encounter Plan of Treatment Upcoming Encounters Date Type Specialty Care Team Description 06/16/2022 Infusion Hematology and Oncology 06/21/2022 Office Visit Neurology Tyler Rojas MD [facility] Neurology [place], [place] [phone] (Wo rk) 06/29/2022 Appointment Cardiology Violetta Sanford M D [address] [place] [address] (Wo rk) 06/30/2022 Infusion Hematology and Oncology 07/14/2022 Infusion Hematology and Oncology 07/28/2022 Infusion Hematology and Oncology 08/11/2022 Infusion Hematology and Oncology 08/16/2022 Office Visit Audiology Mindy Moody AUD [facility] AUDIOLOGY [place], [place] [address] (Wo rk) 11/04/2022 Office Visit Rheumatology Dante Freedman PA [facility] DR [place], [place] [address] (Wo rk) documented as of this encounter Procedures Procedure Name Priority Date/Time Associated Diagnosis Comme nts POCT GLUCOSE Routine 04/03/2014 11:22 AM Results for this EDT procedure are i n the results section . documented in this encounter Results (ABNORMAL) POCT Glucose (04/03/2014 11:22 AM EDT) P athologist Signature POC Glucose 290 (H) 60 - 199 CERNER mg/dL [facility] Comment: Supplemental ranges: <140 mg/dL before meals <180 mg/dL all other times of the day Specimen Anatomical Collection Method Collection Time Receive d Time (Source) Location / / Volume Laterality Blood specimen 04/03/2014 11:22 4 (specimen) AM EDT 11:22 AM EDT Marco Lemus MD POINT OF CARE TEST ORDERABLE S Performing Organization Address City/State/Z[place] [address] [facility] documented in this encounter Visit Diagnoses Not [...] Procedure) documented in this encounter Care Teams Rim Technician Relationship Specialty Start Date End Date Violetta Sanford MD PCP - General 04/02/14 [address] [place] [address] documented as of this encounter
--- OUTSIDE RECORDS SUMMARY | 2022-06-16 12:30 | XMS_ITS | Encounter Summary ---
:1955 Author Organization [facility] Address [place] [id number] Care Team Providers Name Role Phone Violetta Sanford MD Primary Care Provider Encounter Details Date Type Department Care Team Description 04/03/2014 Surgery Main Operating Room Marco Lemus MD Not Performed [facility] HYDROCELECTOMY, [facility] DR CERRATO (WRVU 5.45) [facility] [place] [address] [place] [address] [phone] Social History Tobacco Use Types Packs/Day Years [...] pen injection subcutaneously 2 times daily. Insulin Juana Diaz, Please use as 450 each 4 11/07/201304/19 [...] Tyler Rojas MD [facility] Neurology [place], [place] [phone] (Oscar escobedo) 06/29/2022 Appointment Cardiology Violetta Sanford M D [address] [place] [address] (Oscar escobedo) 06/30/2022 Infusion Hematology and Oncology 07/14/2022 Infusion Hematology and Oncology 07/28/2022 Infusion Hematology and Oncology 08/11/2022 Infusion Hematology and Oncology 08/16/2022 Office Visit Audiology Mindy Moody AUD [facility] AUDIOLOGY DEPT [place], [place] [address] (Oscar escobedo) 11/04/2022 Office Visit Rheumatology Dante Freedman PA [facility] [address] [place], [place] [address] (Oscar escobedo) documented as of this encounter [...] Organization Address City/State/[place] [address] [facility] documented in this encounter Visit [...] Procedure) documented in this encounter Care Teams Working Manager Relationship Specialty Start Date End Date Violetta Sanford MD PCP - General 04/02/14 [address] [place] [address] documented as of this encounter
--- OUTSIDE RECORDS SUMMARY | 2022-06-16 12:30 | XMS_ITS | Encounter Summary ---
:1955 Author Organization [facility] [place] [address] Care Team Providers Name Role Phone Violetta Sanford MD Primary Care Provider Encounter Details Date Type Department Care Team Description 04/10/2014 Hospital Encounter Same Day Program at Diomedes Lemus MD [facility] [place] [address] [place] [address] [phone] Social History Tobacco Use Types Packs/Day Years [...] pen injection subcutaneously 2 times daily. Insulin Sharps, Please use as 450 each 4 11/07/201304/19 [...] Tyler Rojas MD [facility] Neurology [place], [place] [phone] (Oscar escobedo) 06/29/2022 Appointment Cardiology Violetta Sanford M D [facility] [address] [place] [address] (Oscar escobedo) 06/30/2022 Infusion Hematology and Oncology 07/14/2022 Infusion Hematology and Oncology 07/28/2022 Infusion Hematology and Oncology 08/11/2022 Infusion Hematology and Oncology 08/16/2022 Office Visit Audiology Minyd Moody AUD [facility] AUDIOLOGY DEPT [place], [place] [address] (Wo rk) 11/04/2022 Office Visit Rheumatology Dante Freedman, PA [facility] RHEUMATOLOGY [place], [place] [address] (Wo rk) documented as of [...] Organization Address City/State/[place] [address] [facility] documented in this encounter Visit Diagnoses Not on filedocumented in this encounter Active and Recently Administered Medications Care Teams Oil Heat Technician Relationship Specialty Start Date End Date Violetta Sanford MD PCP - General 04/02/14 [address] [place] [address] documented as of this encounter
--- OUTSIDE RECORDS SUMMARY | 2022-06-16 12:30 | XMS_ITS | Encounter Summary ---
:1955 Author Organization [facility] [place] [address] Care Team Providers Name Role Phone Violetta Sanford MD Primary Care Provider Reason for Referral Physical Therapy (Routine) - Closed Specialty Diagnoses / Procedures Referred By Contact Refer red To Contact Physical Therapy Diagnoses Hx of BKA, unspecified laterality Donell Hernandez MD [facility] Pt Rehab [facility] D [facility] ENDOCRINOLOGY DEPT. [place], [place] [id number] [place] [phone] Phone: Fax: Referral ID Status Reason Start Date Expiration Date Visits V isits Requested Authorized [id number] Closed Evaluate and 06/09/2014 12/06/2014 1 1 Treat Encounter Details Date Type Department Care Team Description 06/09/2014 Orders Only Endocrinology at [facility] Donell Hardin, Hx of BKA, [facility] Giovana [place] [address] [facility] MEDICAL laterality [phone] [facility] ENDOCRINOLOGY DEPT. [place], [place] [address] Social History Tobacco Use Types [...] Neurology Tyler Rojas MD [facility] Neurology [place], [place] [phone] (Wo rk) 06/29/2022 Appointment Cardiology Violetta Sanford M D [address] [place], [place] [id number] (Wo rk) 06/30/2022 Infusion Hematology and Oncology 07/14/2022 Infusion Hematology and Oncology 07/28/2022 Infusion Hematology and Oncology 08/11/2022 Infusion Hematology and Oncology 08/16/2022 Office Visit Audiology Mindy Moody AUD [facility] AUDIOLOGY DEPT [place], [place] [address] (Wo rk) 11/04/2022 Office Visit Rheumatology Dante Freedman PA [facility] RHEUMATOLOGY [place], [place] [address] (Wo rk) documented as of [...] laterality documented in this encounter Care Teams Arts Administrator Relationship Specialty Start Date End Date Violetta Sanford MD PCP - General 04/02/14 [address]ino [address] [place], [place] [id number] documented as of this encounter
--- OUTSIDE RECORDS SUMMARY | 2022-06-16 12:31 | XMS_ITS | Encounter Summary ---
:1955 Author Organization [facility] Address [facility] [place] [address] Care Team Providers Name Role Phone Dc Ibanez MD Primary Care Provider Reason for Visit Reason Comments Diabetes Encounter Details Date Type Department Care Team Description 08/06/2013 Office Visit Endocrinology at [facility] Donell Hernandez, Type II or unspecified type diabetes mellitus with neurological manifestations, uncontrolled (Primary Dx); [facility] S/P bilateral BKA (below knee amputation ); [facility] History of renal transplant; [place] [address] [place] [address] DR Marin; [phone] ENDOCRINOLOGY Morbid obesity DEPT. 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 [...] Rojas MD [facility] Neurology [place], [place] [phone] (Wo rk) 06/29/2022 Appointment Cardiology Violetta Sanford M D [address] [place] [address] (Wo rk) 06/30/2022 Infusion Hematology and Oncology 07/14/2022 Infusion Hematology and Oncology 07/28/2022 Infusion Hematology and Oncology 08/11/2022 Infusion Hematology and Oncology 08/16/2022 Office Visit Audiology Mindy Moody AUD [facility] AUDIOLOGY DEPT [place], [place] [address] (Wo rk) 11/04/2022 Office Visit Rheumatology Dante Freedman PA [facility] RHEUMATOLOGY [place], [place] [address] (Wo rk) documented as of [...] 1.59 (H) 0.80 - DELLANER 1.50 mg/dL [facility] Comment: Please note that the pediatric [...] / Volume Laterality Blood specimen 11/07/2013 12:15 11/07/ 4 (specimen) PM EDT 12:18 PM EDT Resulting Agency Comment Spec In Lab Donell Hernandez MD CHEMISTRY ORDERABLES Performing Organization Address City/State/[place] [address] [facility] (ABNORMAL) Hemoglobin A1c (11/07/2013 12:15 PM EDT) Analysis Performed At Patho logist Time Signature Hemoglobin A1C 9.2 (H) <=5.6 % [facility]ILLENNIUM Comment: As of 2013 the methodology for [...] Mellitus, Diabetes Care 2013; 36: Suppl. 1, X77-35 Est Avg Gluc 217 mg/dL [facility] Comment: eAG equivalents for [...] into estimated average glucose values. ??Diabetes Care 2008:31(8):0057-3099. Specimen Anatomical Collection Method Collection Time Receive d Time (Source) Location / / Volume Laterality Blood specimen 11/07/2013 12:15 4 (specimen) PM EDT 12:18 PM EDT Resulting Agency Comment Spec In Lab Donell Hernandez MD CHEMISTRY ORDERABLES Performing Organization Address City/State/[place] [address] [facility] (ABNORMAL) Hemoglobin A1c (08/06/2013 12:52 PM EST) Analysis Performed At Patho [facility] Time Signature Hemoglobin A1C 7.5 (H) <=5.6 % [facility] Comment: As of 2013 the methodology [...] 1, S67-74 Est Avg Gluc 169 mg/dL [facility] Comment: eAG equivalents for HbA1c percentages: HbA1c(%) ?eAG(mg/dL) 6.0 ?126 6.5 ?140 7.0 ?154 7.5 ?169 8.0 ?183 8.5 ?197 9.0 ?212 9.5 ?226 10.0 ? 240 Limitations: The eAG calculation has not been validated on women, individuals below 18 years old and above 70 years old, and individuals with hemoglobinopathies. Additional resources are available on [facility] ADA website: ??http://professional.diabetes.org/gluc osecalculator.aspx Scooby MALDONADO, Nba J, Sydnee R, et al. ??Tr anslating the A1C assay into estimated average glucose values. ??Diabetes Care 2008:31(8):7991-8469. Specimen Anatomical Collection Method Collection Time Receive d Time (Source) Location / / Volume Laterality Blood specimen 08/06/2013 12:52 4 1:02 (specimen) PM EST PM EST Resulting Agency Comment Spec In Lab Donell Hernandez MD CHEMISTRY ORDERABLES Performing Organization Address City/State/[place] [address] [facility] documented in this encounter Visit Diagnoses [...] obesity documented in this encounter Care Teams After School Program Coordinator Relationship Specialty Start Date End Date Dc Ibanez MD PCP - General 04/02/13 04/01/14 [address] [place] [address] documented as of this encounter
--- OUTSIDE RECORDS SUMMARY | 2022-06-16 12:31 | XMS_ITS | Encounter Summary ---
:1955 Author Organization [facility] [place] [address] Care Team Providers Name Role Phone Dc Ibanez MD Primary Care Provider Reason for Visit Reason Comments Diabetes Encounter Details Date Type Department Care Team Description 11/07/2013 Office Visit Endocrinology at [facility] Donell Hernandez, Type II or unspecified type diabetes mellitus with neurological manifestations, uncontrolled(250.62); [facility] Diabetes mellitus; [facility] Type 2 diabetes mellitus [place] [address] CENTER [phone] ENDO[address]Y DEPT. 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 insulin detemir (LEVEMIR) pen injection Inject 55 Units subcutaneously 2 times daily. ??? Insulin [place], Disposable, 32 x 5/32 Ndle 1 Device by [employer].(Non-Drug; Combo Route) route 6 times daily. 600 [...] 3 tabs in the PM ??? Insulin [place], Disposable, (BD INSULIN PEN NEEDLE UF SHORT) 31 X 5/16 Ndle by Other route. 1box = 100 insulin PEN needles. 1 Box 11 ??? MULTIVITS-MINERALS/FA/LYCOPENE (ONE-A-DAY MEN'S MULTIVITAMIN ORAL) Take by mouth daily. ??? Insulin Syringe-Needle U-100 (BD INSULIN SYRINGE ULT-FINE II) 1 mL 31 x 5/[address] [facility].(Non-Drug; Combo Route) route 2 times daily. 200 [...] MD [facility] Dr [address] [place], [place] [phone] (Wo rk) 06/29/2022 Appointment Cardiology Violetta Sanford M D [address] [place] [address] (Oscar escobedo) 06/30/2022 Infusion Hematology and Oncology 07/14/2022 Infusion Hematology and Oncology 07/28/2022 Infusion Hematology and Oncology 08/11/2022 Infusion Hematology and Oncology 08/16/2022 Office Visit Audiology Mindy Moody, WENDI [facility] AUDIOLOGY DEPT [place], [place] [address] (Wo rk) 11/04/2022 Office Visit Rheumatology Dante Freedman PA [facility] RHEUMATOLOGY [place], [place] [address] (Wo rk) documented as of [...] 1.61 (H) 0.80 - CERNER 1.50 mg/dL [facility] Comment: Please note that the pediatric reference intervals supplied above were not validated at [facility]. Results from pediatri c patients should be [...] the following links into your internet browser. http://Source [email or web address] http://Source MDx/[facility] CUSHINGnkf Specimen Anatomical Collection Method Collection Time Receive d Time (Source) Location / / Volume Laterality Blood specimen 01/18/2014 12:29 4 (specimen) PM EDT 12:32 PM EDT Resulting Agency Comment Spec In Lab Donell Hernandez MD CHEMISTRY ORDERABLES Performing Organization Address City/State/ZIP Code Phyllis OQUENDO [place] [id number] [facility] (ABNORMAL) Hemoglobin A1c (01/18/2014 12:29 PM EDT) Analysis Performed At Patho logis Time Signature Hemoglobin A1C 8.4 (H) <=5.6 % [facility] Comment: Reference Range: 4.3 ? [...] Mellitus, Diabetes Care 2013; 36: Suppl. 1, S67-06 Est Avg Gluc 194 mg/dL [facility] Comment: eAG equivalents for HbA1c percentages: HbA1c(%) ?eAG(mg/dL) 6.0 ?126 6.5 ?140 7.0 ?154 7.5 ?169 8.0 ?183 8.5 ?197 9.0 ?212 9.5 ?226 10.0 ? 240 Limitations: The eAG calculation has not been validated on women, individuals below 18 years old and above 70 years old, and individuals with hemoglobinopathies. Additional resources are available on [facility] website: http://Source MDx/[facility] CUSHINGadacalc Scooby MALDONADO, Nba J, Sydnee R, et al. ??Tr anslating the A1C assay into estimated average glucose values. ??Diabetes Care 2008:31(8):7991-3260. Specimen Anatomical Collection Method Collection Time Receive d Time (Source) Location / / Volume Laterality Blood specimen 01/18/2014 12:29 4 (specimen) PM EDT 12:32 PM EDT Resulting Agency Comment Spec In Lab Donell Hernandez MD CHEMISTRY ORDERABLES Performing Organization Address City/[facility] Phon e Number [address] CERNER MILLENNIUM (ABNORMAL) Creatinine (11/07/2013 12:15 PM EDT) athologist Signature Creatinine 1.59 (H) 0.80 - CERNER 1.50 mg/dL [facility] Comment: Please note that the pediatric reference intervals supplied above were not validated at [facility]. Results from pediatri c patients should be interpreted in conjunction to the patient's age, height and muscle mass. Estimated GFR 45 (L) >=60 DELLANER NELLIEIU M Comment: This [...] Hernandez MD CHEMISTRY ORDERABLES Performing Organization Address [facility] [place] [address] CERNER MILLENNIUM (ABNORMAL) Hemoglobin A1c (11/07/2013 12:15 PM EDT) Analysis Performed At [facility] Time Signature Hemoglobin A1C 9.2 (H) <=5.6 % [facility] Comment: As of 2013 the methodology for [...] 1, S67-74 Est Avg Gluc 217 mg/dL [facility] Comment: eAG equivalents for HbA1c percentages: HbA1c(%) ?eAG(mg/dL) 6.0 ?126 6.5 ?140 7.0 ?154 7.5 ?169 8.0 ?183 8.5 ?197 9.0 ?212 9.5 ?226 10.0 ? 240 Limitations: The eAG calculation has not been validated on women, individuals below 18 years old and above 70 years old, and individuals with hemoglobinopathies. Additional resources are available on e ADA website: ??http://professional.diabetes.org/gluc osecalculator.aspx Scooby MALDONADO, Nba Gilbert, Sydnee Swain, et al. ??Tr anslating the A1C assay into estimated average glucose values. ??Diabetes Care 2008:31(8):1310-4692. Specimen Anatomical Collection Method Collection Time Receive d Time (Source) Location / / Volume Laterality Blood specimen 11/07/2013 12:15 4 (specimen) PM EDT 12:18 PM EDT Resulting Agency Comment Spec In Lab Donell Hernandez MD CHEMISTRY ORDERABLES Performing Organization Address City/State/[facility] Code Phon e Number [place] [phone] [facility] documented in this encounter Visit [...] uncontrolled documented in this encounter Care Teams Community Support Worker Relationship Specialty Start Date End Date Dc Ibanez MD PCP - General 04/02/13 04/01/14 [facility] [address] [place] [address] documented as of this encounter
--- OUTSIDE RECORDS SUMMARY | 2022-06-16 12:32 | XMS_ITS | Encounter Summary ---
:1955 Author Organization [facility] [place] [address] Care Team Providers Name Role Phone Dc Ibanez MD Primary Care Provider Encounter Details Date Type Department Care Team Description 06/16/[address] Tammy Maradiaga MD [facility] [place] [address] Abdominal pain, acute, right lower quadr ant; - Encounter Ev Naranjo MD [facility] [place] [address] Fever; 06/27/2013 [facility] Type II diabetes mellitus wi th renal manifestations; One Medical History of octavio l transplant; [place] [id number] Social History Tobacco Use Types Packs/Day Years [...] may be used if needed and are zgun-bcv-nicbtuj (OTC) medications available at most [facility]. Prunes or prune juice, taken daily, can [...] 2 weeks. Your surgeon may not be Manager Lvn, especially during the night or on weekends, [...] diabetes mellitus with neurological manifestations, uncontrolled(250.62) Insulin Spring, by Other route. 1 1 Box 11 [...] Combo Route) route 2 mL 31 x 516 times daily. SyrgIndications: Type II or unspecified [...] 06/27/2013 12:00 PM EST Patient discharged to [facility] in [place], [place]. Patient has a triple lumen PICC [...] prescriptions given to ambulance service. Patient dischargedto [facility] via ambulance. Report called to [facility]. Char Morales MD - 06/27/2013 10:16 AM [...] and flagyl per ID Char Mclaughlin Pager -[phone] Sylvia Remy RN - 06/27/2013 9:01 AM EST Patient Name: Leroy Dailey : 1955 Patient has been offered a swing bed at [facility] for today. Please call Dr. Sylvia Sommers at [phone] for report. Please call Nursing Report to , ask for patternmaker sample. Info to accompany patient: Copies of Medication Administration Records and IV sheets for past two weeks. Rd arranging ambulance pickup for noon. Ambulance will need: Medicare ambulance form completed and signed (MD or CRC) Copy of patient demographics [place] [facility] [place] [facility] DNR/DNI order, if active Patient will be discharged to: [facility] [address] [place] [address] Plan: Account Manager Employee Benefits will be available to the patient and CRC for further assistance. Sylvia Remy RN Pager [phone] Alicja Calloway OTA - 06/26/2013 4:08 PM EST Occupational Therapy Treatment Note Visit #: 2 Patient Dx: Leroy Dailey is a 58 y.o. male patient of Ev Bennett,*, admitted on06/16/2013 in transfer from [facility] for abdominal pain and fever. He underwent 06/16/13 LAPAROSCOPIC APPENDECTOMY. He had some post op issues with hypotension. PICC was placed in [facility] on 06/16/13; he is on Vanco. He has had issues with fevers and tremors; he was seen by Neuro and he has baseline tremors. He was extubated on 06/20/13, has had and altered mental status, and was [facility] 06[facility]22[facility]. Precautions/Special Considerations: consuelo AKA, [...] functional activity. 2. [facility] person [facility] and appropriate [...] 10 minutes for SCM x 1 Pager: [phone] JARRET AMRTINEZ Occupational Therapy Rehabilitation Department Ryland Wilkins, PT - 06/26/2013 3:27 PM EST Physical Therapy Treatment Note Visit # 3 Patient Dx: Pt. is a 58 y.o. male admitted on 06/16/[address] Buckner [facility], in transferfrom OSH for abdominal pain and fever. He underwent 06/16/13 LAPAROSCOPIC APPENDECTOMY. He had some post op issues with hypotension. PICC was placed in [facility] on 06/16/13; he is on Vanco. He has had issues with fevers and tremors; he was seen by Neuro and he has baseline tremors. He was extubated on 06/20/13, has had and altered mental status, and was transferred to [facility] on 06/22/13. Precautions: consuelo. BKA with [...] interventions: 30 minutes functional activity training Pager: [phone] Ryland Wilkins, PT Physical Therapy Rehabilitation Department Mer Merchant RN - 06/26/2013 3:04 PM EST Care Management/ CRC Pager# [phone]/ Discharge planning S: Going to [facility] (swing bed level) tomorrow would be perfect. Thanks [facility] for your help. An ambulance pick-up at about 11 would be great. O: Discussion with Account Manager Employee Benefits Sylvia Remy. No bed offer at [facility] or [facility] today. [facility] has offered swing bed for patient transfer tomorrow. Message to Dr. Weber about discharge plan. A/P: Boring Machine Set Up Operator Jig will follow up in am for completion of discharge planning. Sylvia Herman RN - 06/26/2013 2:43 PM EST [facility] can offer a bed to pt on Tuesday but not today. [facility] unable to get an answer from the doctor as to accepting as he is unavailable. SYLVIA REMY RN Erik Mancilla MD - 06/26/2013 9:20 [...] and flagyl per ID Char Mclaughlin Pager -[phone] Transplant Nephrology Staff: Patient seen and discussed with Dr. Mclaughlin and I agree with his note and make the following additional comments: I performed my own history and exam. The conclusions and discussion were formulated together and reflect my input. Patient is feeling better and anxious for rehab in [facility]. He was treated with lasix [...] last 3 completed shifts: In: 3128 [P.O.:1080; I.V.:8] Out: 5645 [Urine:5645] I/O this shift: In: [...] 2:47 PM EST Care Management/ CRC pager# [phone]/ Transfer note and Discharge planning S: I do think that I need to get stronger before I go home with my mother. I am thinking that I would do best at [place] (swing bed), but if there are no openings there you can try the [place]. I do feel that I will need to go by ambulance. I am not able to use my prostheses due to the swelling in my legs. O: Met with patient, patient's mother, and patient's friend Linda this afternoon. Patient lives with his mother in [place]. Patient has Medicare (Parts A,B and D). Patient has submitted [place] Medicaid application, but unclear when this might become effective. No Advance Directives on file here at [facility]. Patient has history of Type 2 DM. S/p bilateral below knee amputations (has prostheses). S/p donor kidney transplant 2007. Patient is S/P laparoscopic appendectomy on 06/16. Extubated on 06/20. Patient transferred to [address] [place] [address] 325 on 06/22. Per Dr. Weber, patient [...] qday. PT/OT. Message to Sylvia Remy RN Account Manager Employee Benefits about patient's request for referrals. A/P: I will continue in CRC role, coordinating patient's discharge planning. Ryland Wilkins, PT - 06/25/2013 1:49 PM EST Physical Therapy Treatment Note Visit # 3 Patient Dx: Pt. is a 58 y.o. male [facility] for abdominal pain and fever. He underwent 06/16/13 LAPAROSCOPIC APPENDECTOMY. He had some post op issues with hypotension. PICC was placed in [facility] on 06/16/13; he is on Vanco. He has had issues with fevers and tremors; he was seen by Neuro and he has baseline tremors. He was extubated on 06/20/13, has had and altered mental status, and was [facility]. Precautions: consuelo. BKA with [...] interventions: 45 minutes functional activity training Pager: [phone] Ryland Wilkins PT Physical Therapy Rehabilitation Department [...] with RN and/or primary team, TPN team, warp yarn sorter and/or diabetes nurse educator, etc). JACKIE VARGAS APRN 06/25/2013 12:27 PM [place] Hollins-Patricia Hurst SLP - 06/25/2013 9:08 AM EST Speech-Language [...] seen for swallow f/u. Pt upgraded to mech soft, regular liquids yesterday. Goals: Pt will [...] with plan of treatment. Patricia Farah MA, [facility]-COREMAKER APPRENTICE Inpatient Rehabilitation Medicine pager:# [phone] Aeljo Garnett MD - 06/25/2013 8:52 AM EST TRANSPLANT NEPHROLOGY follow-up PATIENT: Leroy Dailey : 1955 REASON FOR CONSULTATION: immunosuppressant management referred by Dr. Mccann [facility]: ESRD secondary to presumed diabetic nephropathy s/p donor kidney transplant on 02/29/08 Diabetes Mellitus S/p bilateral BKA Asthma, nasal polyps. Essential tremor. Hypertension. GERD. Hydrocele. Subjective/24h interval history Feels well, eating better, tremors well controlled; wants to go to rehab an prefers [facility] swing bed TRANSPLANT HISTORY Type of [...] and flagyl per ID Char Mclaughlin Pager -[phone] I examined the patient, reviewed all of the above findings and assessment of Dr. Mclaughlin and formulated the recommendations which accurately reflect mine. Monico Clarke RN - 06/24/2013 6:14 PM EST [facility] Telemetry Note Subjective: Patient resting comfortably. Patient [...] issues with hypotension. PICC was placed in [facility] on 06/16/13; he is on Vanco. He has had issues with fevers and tremors; he was seen by Neuro and he has baseline tremors. He was extubated on 06/20/13, has had and altered mental status, and was [facility]. Precautions:Considerations: consuelo. BKA with [...] 10 mins this late afternoon/early evening on [facility] for ther-ex and pt education; Girlfriend, [...] patient: 10 minutes Total timed interventions: 10 [id number] Pager: [phone] LELE FARLEY, PT Physical Therapy Rehabilitation Department Hedy Garcia COREMAKER APPRENTICE - 06/24/2013 3:23 PM EST Speech-Language Pathology Progress Note Total Treatment Time: 28 min. swallow tx Total Timed Code Treatment: 0 min. S: ?? Pt denies pain at this time. ?? Pt w/ increased alertness compared to previous COREMAKER APPRENTICE visit. Tolerating full liquid diet well per [...] PO intake. Education provided re: role of COREMAKER APPRENTICE and likely progression to numerous family present throughout tx session. Communicated recommendations to RN and MD. A: Dx: Positive outward s/s of Oropharyngeal Dysphagia secondary to mildly delayed pharyngeal trigger and effortful clearance of likely pharyngeal residue. Pt appropriate to upgrade to mechanical soft diet w/thin liquids. Primary COREMAKER APPRENTICE to resume care tomorrow (Patricia Farah, #[phone]) Recommendations: Diet: mechanical soft diet, thin liquids Follow standard Aspiration Precautions (Feed only when alert; Sit upright for all PO intake; Small, single bites and sips; Remain upright for 10-15 minutes after PO intake) P: Continue Speech Pathology treatment / monitoring 3-5x/week while hospitalized. Pt./Family are in agreement with plan of treatment. Hedy Arrington MS, [facility]-COREMAKER APPRENTICE Inpatient Rehabilitation Medicine pager:# [phone] Greg Silveira - 06/24/2013 1:36 PM EST Med Admin Encounter Note Patient Name: Leroy Dailey : [id number] MR#: [id number] Admit Date: 06/16/2013 12:43 AM Hospital Day 8 days Narrative:Visited to introduce and assess acceptance of Med Admin services. Assessment:Patient coping positively with stresses of illness/hospitalization at this time. Pt says that he is feeling better and pt three family members were. Pt is hoping good health and having good time with family. Intervention and Outcome: pt has family care and support. Provided spiritual and emotional support. Med Admin services accepted. Conversation to build trusting relationship. [...] po intake over the next day. Ev Buckner MD - 06/24/2013 7:48 AM EST Transplant Surgery Progress Note Interval Hx: - NGT OUT in PM - Took 490 po of liquid diet, COREMAKER APPRENTICE revisit pending this AM - CMP not [...] NGT out yesterday, will be seen by COREMAKER APPRENTICE today. Boost shakes written for TID. Prograf [...] NTD SQH DVT prophylaxis GI: NPO, repeat COREMAKER APPRENTICE eval Boost shakes FEN: Continue IVF @ [...] NTD SQH DVT prophylaxis GI: NPO, repeat COREMAKER APPRENTICE eval Tube feeds @goal rate 54 FEN: [...] and discussed the patient. Dustin Haywood MD Gurvinder-Patricia Hurst, COREMAKER APPRENTICE - 06/22/2013 10:24 AM EST Speech-Language Pathology [...] follow 3-5x/week while hospitalized. Will ask Tuesday COREMAKER APPRENTICE to check in on pt, see if [...] any questions or concerns. Patricia Farah MA [facility]-COREMAKER APPRENTICE Inpatient Rehabilitation Medicine Pager:#[phone] Ev Buckner MD - 06/22/2013 8:01 AM [...] NTD SQH DVT prophylaxis GI: NPO, failed COREMAKER APPRENTICE eval Tube feeds @40, goal rate 54 [...] UA Negative Appearance UA Clear Clear Spec [place] UA 1.011 1.002 - 1.030 Color UA [...] In: 2576 [I.V.:2481; NG/GT:70; IV Piggyback:25] Out: 17875 [Urine:9850; Emesis/NG output:450] General : NAD, awake [...] NTD SQH DVT prophylaxis GI: NPO, failed COREMAKER APPRENTICE eval Keep NGT FEN: Continue IVF Continue [...] Shell Motta - 06/20/2013 6:25 PM EST Med Admin Encounter Note Patient Name: Leroy Dailey : [id number] MR#: [id number] Admit Date: 06/16/2013 12:43 AM Hospital Day 4 days Narrative: Patient recently had intubation equipment removed and family present were attempting to assist in his regaining consciousness. This short story writer spoke with family regarding patient's accident and hopes for recovery. Present were patients partner, mother and two close friends. Assessment: Family appears to be dealing with current crisis in a positive manner. Intervention and Outcome: Offered supportive listening. Follow-up: None requested. Time in Direct Care: 20 minutes Shell Motta 06/20/2013 Patricia Kelsey COREMAKER APPRENTICE - 06/20/2013 3:27 PM EST Speech-Language Pathology [...] / progression. Thank you. Patricia Farah MA [facility]COREMAKER APPRENTICE Inpatient Rehabilitation Medicine pager:# [phone] Mulugeta Weiss MD - 06/20/2013 2:58 PM [...] minutes MULUGETA CAMEJO MD 06/20/2013 Ev Bolanos [facility] - 06/20/2013 2:45 PM EST Extubation Note [...] at [facility] MAIN OR ??? Lap, appendectomy 06/16/2013 LAPAROSCOPIC APPENDECTOMY performed by Tammy Mccann MD at [facility] MAIN OR Weight: 114.1 kg - [...] PHOS 3.6 06/17/2013 Nutrition needs assessed at: 8980-7278 calories (based on IBW) ~80 gm protein [...] 29.3* PLATELET 139* 132* 112* Recent Labs Basenam 06/16/13 0700 PT 17.2* PTT -- INR [...] Likely transfer to the floor tomorrow. Alejo Mandjuano MD - 06/20/2013 8:47 AM EST TRANSPLANT NEPHROLOGY follow-up PATIENT: Leroy Dailey : 1955 REASON FOR CONSULTATION: immunosuppressant management referred by Dr. 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 ABG 7.16/. Patient placed back on SIMV mode. Noel [...] RN - 06/18/2013 10:13 AM EST CLINICAL NETWORK OPERATIONS MANAGER (CRC) Office of Care Management Yohana Ballard RN, CRC Phone [phone] Pager # [phone] INITIAL ASSESSMENT: Reviewed record; interviewed pt's mother, [...] had inpatient rehab following last BKA at [facility] swing bed. Mother states he didn't like it, but will appreciate that he must be independent enough to safely returnhome, as he is a large man, and mother is a small woman, with limited ability to physically help him. INSURANCE COVERAGE/FINANCIAL ISSUES: Medicare AB and prescription coverage. Pt's mother states that pt has submitted an application to [place] Medicaid, but has not yet heard back. ADVANCE DIRECTIVES: None scanned. Mother and girlfriend state pt does not have these. REHAB TEAM CONSULTS: Will need PT when clinically appropriate for mobilization, assessment of discharge planning needs. MARKET STALL VENDOR REFERRAL: When pt is awake and alert, will ask MARKET STALL VENDOR to check in with pt regarding willingness to complete AD's; also whether he needs assistance with Medicaid process. POTENTIAL DISCHARGE NEEDS: To be determined after extubation, and after PT evaluation. PLAN: Yohana Ballard RN,CRC/Lynsey Arias RN,CRC, will continue to follow. Ev Salas MD - 06/18/2013 7:53 AM EST Surgery [...] %] I/O last 3 completed shifts: In: 24873 [I.V.:62993; NG/GT:120] Out: 2955 [Urine:2855; Blood:100] I/O this [...] 0100 - Pt received via stretcher from [facility]. Pt aaox4. PIV access leaking, IV team notified for IV placement. MD team notified of pt arrival. Pt states pain / to RLQ, pain increased upon palpation slightly. 0200 - Labs sent as ordered 0300 - K 6.9, Dr. Segovia notified. Orders received. 0315 - Pt transported to [facility] via stretcher for PA/LAT. 0400 [...] Note ID: 58 y.o. Male presents to [facility] with acute abdominal pain, now [...] JR at [facility] MA[facility] OR Prior To Admission Medications: [...] as needed. 64 g 11 ??? Insulin Spring, Disposable, (BD INSULIN PEN NEEDLE UF SHORT) [...] OSH Assessment: 58 y.o. Male presents to [facility] with acute abdominal pain, now [...] Admission H&P Patient Name: Leroy Dailey : [id number] MR#: [id number] 06/16/2013 Hospital Day 0 days ID: 58 [...] JR at [facility] MA[facility] OR Allergies: Allergies Allergen Reactions [...] as needed. 64 g 11 ??? Insulin Spring, Disposable, (BD INSULIN PEN NEEDLE UF SHORT) [...] 31 x 5/16 Syrg 1 Device by [facility]Non-Drug; Combo Route) route 2 times daily. 200 [...] 06/28/2013 1:29 PM ESTAssociated Order(s): SCAN DOC: APPLIANCE SERVICE REPRESENTATIVE Provider, Scanning - 06/28/2013 1:29 PM ESTAssociated Order(s): SCAN DOC: APPLIANCE SERVICE REPRESENTATIVE Elizabeth Arguelles APRN - 06/18/2013 9:51 AM [...] to the planned procedure. Hand Hygiene: The prepared foods supervisor did perform hand hygiene prior to line insertion. Catheter type: PICC Lot number: [id number] Procedure Technique: Skin was prepped with chlorhexidine. [...] needed. Qty: 64 g Refills: 11 Insulin Spring, Disposable, (BD INSULIN PEN NEEDLE UF SHORT) [...] 5/16 Syrg 1 Device 1 Device by [facility]Non-Drug; Combo Route) route 2 times daily. Qty: [...] may be used if needed and are nrfq-eok-ilqsiqo (OTC) medications available at most [facility]. Prunes or prune juice, taken daily, can [...] 2 weeks. Your surgeon may not be Manager Lvn, especially during the night or on weekends, so be ready to describe yourself and your surgery when you call. Future Appointments and Orders Future Appointments: Provider: Department: Dept Phone: Center: 08/06/2013 1:00 PM Donell Hernandez MD Endocrinology [phone] [facility] Joint Appt Endo Lab Resource Endocrinology [phone] [facility] Electronically Signed by: EDA WEBER MD 06/26/2013 Consult Note - Carlos Sr RN - 06/25/2013 4:15 PM EST Certified Wound Care Nurse Note Situation: Follow up with area supervisor for Leroy Dailey r/t injury at left nare; patient has been transferred from ICU to . Background: eDH notes reviewed for history, admitting diagnosis and active problem list. Assessment: Telephone conversation with area supervisor caring for patient r/t wound at left nare, reviewedCWCN plan of care with area supervisor. Recommendations: Follow plan of care as outlined below. Wound Care Recommendations: Left nares 1. Cleanse area with normal saline of dermal wound cleanser 2. Apply Aloe Volborg protective ointment to area BID and prn [...] gently after each incontinence episode with Aloe Volborg Personal Cleanser. Apply Protective Ointment to perineal area bid and prn. Assess skin for fungal infections, notify provider. Activity: Implement reminder system for repositioning every two hours while in bed Nutrition: Evaluate nutrition/hydration status. Follow yard caller recommendations Mobility: Turn and reposition every 2 [...] or equal to 30 degrees. Use Aloe Volborg Skin Conditioner #2 after baths for extra dry skin. Follow-up: Will plan to follow patient on 2012. Discussed plan with: RN: Shandra Please contact CARLOS SR RN at [phone] or pager [phone] or the wound care team at [phone] or pager [phone] with skin and wound care concerns or [...] Bennett,*, admitted on 06/16/2013 in transfer from [facility] for abdominal pain and fever. He underwent 06/16/13 LAPAROSCOPIC APPENDECTOMY. He had some post op issues with hypotension. PICC was placed in [facility] on 06/16/13; he is on Vanco. He has had issues with fevers and tremors; he was seen by Neuro and he has baseline tremors. He was extubated on 06/20/13, has had and altered mental status, and [facility]. No past medical history on [...] at [facility] MAIN OR ??? Lap, appendectomy 06/16/2013 LAPAROSCOPIC APPENDECTOMY performed by Tammy Mccann MD at [facility] MA[facility] OR Social History: Patient lives with his mother, likes to practice coordinator the garage, in the summer mows the [...] functional activity. 2. Pt [facility] one person assist and appropriate [...] minutes Total timed interventions: 0 minutes Pager: [phone] KEDAR AKINS OT 06/25/2013 Occupational Therapy Rehabilitation [...] at [facility] MA[facility] OR ??? Lap, appendectomy 06/16/2013 LAPAROSCOPIC APPENDECTOMY performed by Tammy Mccann MD at [facility] MA[facility] OR Social History: Per CARE [...] had inpatient rehab following last BKA at [facility] swing bed. Mother states he didn't like [...] 95 HR: 67 BP: 145/63 - per MUTUAL FUND ACCOUNTANT at 10:34 am Mental Status: affect appropriate [...] 0 minutes TAMMY WYMAN, PT 06/23/2013 Pager: [phone] Physical Therapy Rehabilitation Department Consult Note - [...] of dermal wound cleanser 2. Apply Aloe Volborg protective ointment to area BID and prn [...] gently after each incontinence episode with Aloe Volborg Personal Cleanser. Apply Protective Ointment to perineal area bid and prn. Assess skin for fungal infections, notify provider. Activity: Implement reminder system for repositioning every two hours while in bed Nutrition: Evaluate nutrition/hydration status. Follow yard caller recommendations Mobility: Turn and reposition every 2 [...] or equal to 30 degrees. Use Aloe Volborg Skin Conditioner #2 after baths for extra dry skin. Discussed plan with: : Lane Nowak RN: Taina Patel Please contact MILLIE MAZA RN on pager [phone] or the wound care team at [phone] or pager [phone] with skin and wound care concerns or [...] - 06/21/2013 1:16 PM EST Clinical Pharmacist Note-Varsha Leroy Dailey [id number] 1955 Leroy Dailey is a 58 y.o. [...] have. Alternately, during off-hours you may call [phone] to contact a pharmacist. Patient has been transferred off ICU service and pharmacy-managed vancomycin service will sign-off. We will continue to monitor vancomycin therapy for this patient and any changes to the vancomycin regimen will need to be made by the primary team. SHABANA COLINDRES, PHARMD PH [phone] Plan of Care - John North RN [...] PM EST Clinical Pharmacist Note-Vanc Leroy Dailey [id number] 1955 Leroy Dailey is a 58 y.o. [...] have. Alternately, during off-hours you may call [phone] to contact a pharmacist. ALDA KIRBY PHARMD Pager [phone] Plan of Care - Marissa Nuñez RN [...] DM, diabetic nephropathy s/p renal [facility] fevers, chills and RLQ [...] open eyes on command inconsistently Unable to assisted living manager with intention 2-3 Hz tremor noted upon [...] Fernandez DO Resident in Neurology Team Pager [phone] Neurology (Staff) Addendum I saw and evaluated [...] PM EST Clinical Pharmacist Note-Vanc Leroy Dailey [id number] 1955 Leroy Dailey is a 58 y.o. [...] have. Alternately, during off-hours you may call [phone] to contact a pharmacist. ALDA KIRBY PHARMD Pager [phone] Miscellaneous - Javon, Kody - 06/18/2013 2:57 PM EST Consult [...] the OSH. [place] [facility] [place] underwent lap appendectomy and [...] at [facility] MAIN OR ??? Lap, appendectomy 06/16/2013 LAPAROSCOPIC APPENDECTOMY performed by Tammy Mccann MD at [facility] MAIN OR FH: No family history [...] on vanc and meopenem Char Mclaughlin Pager [phone] I examined the patient, reviewed all of [...] tenderness and firmness. He went initially to [facility] where he was found to be febrile to 40.2. Blood cultures were drawn. A CXR was obtained and showed no infiltrate. CT scan of abd/pelvis showed no infectious process. He was given a dose of CTX, Flagyl, and Vanco and transferred to [facility] where he was noted to [...] intrapelvic process. No diverticulitis or appendicitis. 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 Nicky Small MD Garbage Collection Supervisor Page [phone] Consult Note - Katherine Landeros Jr., [facility] - 06/17/2013 7:34 AM EST Clinical Pharmacist Note-Vanc Leroy Dailey [phone] 1955 Leroy Dailey is a 58 y.o. [...] have. Alternately, during off-hours you may call [phone] to contact a pharmacist. KATHERINE LANDEROS JR [facility], [facility] P. [phone] Electronically signed by Katherine Landeros Jr., [facility] at 06/17/2013 7:41 AM EST Plan of Care - Melly Yusuf RN [...] need to include opening and closing). TAMMY CMCANN MD 06/16/2013 Op Note - Tammy Mccann MD - 06/16/2013 6:24 PM EST [facility] Operative Note Patient Name: Leroy Dailey : [id number] MR#: [id number] Case Date: 06/16/2013 Surgeon: Surgeon(s) and Role: [...] elevated white count. He was transferred to [facility] for further evaluation. On presentation, he complained [...] complications. Consult Note - Katherine Landeros Jr., [facility] - 06/16/2013 7:54 AM EST Clinical Pharmacist Note-Vanc Leroy Dailey [id number] 1955 Leroy Dailey is a 58 y.o. [...] have. Alternately, during off-hours you may call [phone] to contact a pharmacist. KATHERINE LANDEROS JR [facility], [facility] P. [phone] Brief Op Note - Aria Gray - 06/16/2013 6:10 AM EST Brief Operative Note Patient Name: Leroy Dailey : [id number] MR#: [id number] Case Date: 06/16/2013 Surgeon: Surgeon(s) and Role: [...] Rojas MD [facility] [address] [place] [phone] (Wo rk) 06/29/2022 Appointment Cardiology Violetta Sanford M D [address] [place] [address] (Wo rk) 06/30/2022 Infusion Hematology and Oncology 07/14/2022 Infusion Hematology and Oncology 07/28/2022 Infusion Hematology and Oncology 08/11/2022 Infusion Hematology and Oncology 08/16/2022 Office Visit Audiology Mindy Moody [facility] AUDIOLOGY DEPT [place], [place] [address] (Wo rk) 11/04/2022 Office Visit Rheumatology Dante Freedman PA [facility] RHEUMATOLOGY [place], [place] [address] (Wo rk) documented as of this encounter Procedures Procedure Name Priority Date/Time Associated Diagnosis Comme nts APPLIANCE SERVICE REPRESENTATIVE SCAN 06/28/2013 1:29 Resu lts for this PM EST procedure are i n the results section. APPLIANCE SERVICE REPRESENTATIVE SCAN 06/28/2013 1:29 Resu lts for this [...] section. TYPE AND SCREEN Routine 06/22/2013 4:00 ([facility]) AM EST BASIC METABOLIC PANEL Routine 06/22/2013 [...] section. TYPE AND SCREEN Routine 06/16/2013 1:45 ([facility]) AM EST PHOSPHORUS Routine 06/16/2013 1:45 Results [...] documented in this encounter Results SCAN DOC: APPLIANCE SERVICE REPRESENTATIVE (06/28/2013 1:29 PM EST) Anatomical Region Laterality Modality Other Narrative 06/28/2013 1:34 PM EST Procedure Note Provider, Scanning - 06/28/2013 1:29 PM EST Scanning Provider MEDIA MGR SCAN EXT ORDR/RSLT SCAN DOC: APPLIANCE SERVICE REPRESENTATIVE (06/28/2013 1:29 PM EST) Anatomical Region Laterality Modality Other Narrative 06/28/2013 1:34 PM EST Procedure Note Provider, Scanning - 06/28/2013 1:29 PM EST Scanning Provider MEDIA MGR SCAN EXT ORDR/RSLT POCT Glucose (06/27/2013 11:41 AM EST) P athologist [facility] POC Glucose 166 60 - 199 CERNER [...] Address City/State/ZIP Code Phon e Number [address] CERNER MILLENNIUM POCT Glucose (06/27/2013 7:57 AM EST) athologist [facility] POC Glucose 111 60 - 199 CERNER [...] Address City/State/ZIP Code Phon e Number [address] CERNER MILLENNIUM Differential, Automated (06/27/2013 6:55 AM EST) athologist [facility] Neutrophils % 59.2 34.0 - CERNER 71.0 [...] Organization Address City/State/[place] [address] CERNER MILLENNIUM (ABNORMAL) CBC [...] Buckner MD HEMATOLOGY ORDERABLES Performing Organization Address City/[facility]/ZIP Code Phon e Number [address] CERNER MILLENNIUM POCT Glucose (06/27/2013 4:00 AM EST) athologist Signature POC Glucose 143 60 - 199 CERNER mg/dL [facility] Comment: Supplemental ranges: <110 mg/dL before meals <200 mg/dL all other times of the day Specimen Anatomical Collection Method Collection Time Receive d Time (Source) Location / / Volume Laterality Blood specimen 06/27/2013 4:00 AM 013 4:00 (specimen) EST AM EST Tammy Mccann MD POINT OF CARE TEST ORDERABLE S Performing Organization Address City/[facility]/ZIP Code Phon e Number [address] CERNER MILLENNIUM POCT Glucose (06/27/2013 12:19 AM EST) athologist Signature POC Glucose 178 60 - 199 CERNER mg/dL [facility] Comment: Supplemental ranges: <110 mg/dL before meals <200 mg/dL all other times of the day Specimen Anatomical Collection Method Collection Time Receive d Time (Source) Location / / Volume Laterality Blood specimen 06/27/2013 12:19 3 (specimen) AM EST 12:19 AM EST Tammy Mccann MD POINT OF CARE TEST ORDERABLE S Performing Organization Address City/[facility]/ZIP Code Phon e Number [address] CERNER MILLENNIUM POCT Glucose (06/26/2013 8:15 PM EST) athologist Signature POC Glucose 182 60 - 199 CERNER mg/dL [facility] Comment: Supplemental ranges: <110 mg/dL before meals <200 mg/dL all other times of the day Specimen Anatomical Collection Method Collection Time Receive d Time (Source) Location / / Volume Laterality Blood specimen 06/26/2013 8:15 PM 013 8:15 (specimen) EST PM EST Tammy Mccann MD POINT OF CARE TEST ORDERABLE S Performing Organization Address City/State/ZIP Code Phon e Number [address] CERNER MILLENNIUM POCT Glucose [...] Address City/State/ZIP Code Phon e Number [address] CERNER MILLENNIUM POCT Glucose [...] Address City/State/ZIP Code Phon e Number [address] CERNER MILLENNIUM POCT Glucose [...] City/State/ZIP Code Phon e Number [place] [id number] CERNER MILLENNIUM Differential, Automated [...] Address City/State/ZIP [place] [address] CERNER MILLENNIUM (ABNORMAL) CMP [...] of Diabetes Mellitus, Position Statement from the [place] [employer]. ??Diabete s Care, Volume 33, [...] Organization Address City/State/[place] [address] CERNER MILLENNIUM (ABNORMAL) CBC [...] Buckner MD HEMATOLOGY ORDERABLES Performing Organization Address City/[facility]/ZIP [facility] [place] [address] CERNER MILLENNIUM Phosphorus (06/26/2013 5:45 AM EST) athologist Signature Phosphorus 3.9 2.5 - 4.5 CERNER mg/dL [facility] Specimen Anatomical Collection Method Collection Time Receive d Time (Source) Location / / Volume Laterality Blood specimen 06/26/2013 5:45 AM 013 5:54 (specimen) EST AM EST Resulting Agency Comment Spec In Lab Ev Buckner MD CHEMISTRY ORDERABLES Performing Organization Address City/State/[facility] [place] [address] CERNER MILLENNIUM (ABNORMAL) Magnesium (06/26/2013 5:45 AM EST) P athologist Signature Magnesium 0.67 (L) 0.69 - 1.07 CERNER mmol/L MILLENNIUM Specimen Anatomical Collection Method Collection Time Receive d Time (Source) Location / / Volume Laterality Blood specimen 06/26/2013 5:45 AM 013 5:54 (specimen) EST AM EST Resulting Agency Comment Spec In Lab Ev Buckner MD CHEMISTRY ORDERABLES Performing Organization Address City/[facility]/ZIP Code Phon e Number [address] CERNER MILLENNIUM POCT Glucose [...] CARE TEST ORDERABLE S Performing Organization Address City/[facility]/ZIP Code Phon e Number [address] CERNER MILLENNIUM (ABNORMAL) POCT [...] CARE TEST ORDERABLE S Performing Organization Address City/[facility]/[place] [address] CERNER MILLENNIUM (ABNORMAL) POCT [...] CARE TEST ORDERABLE S Performing Organization Address City/[facility]/ZIP Code Phon e Number [address] CERNER MILLENNIUM POCT Glucose (06/25/2013 5:10 PM EST) P athologist Signature POC Glucose 118 60 - 199 CERNER mg/dL [facility] Comment: Supplemental ranges: <110 mg/dL before meals <200 mg/dL all other times of the day Specimen Anatomical Collection Method Collection Time Receive d Time (Source) Location / / Volume Laterality Blood specimen 06/25/2013 5:10 PM 013 5:10 (specimen) EST PM EST Tammy Mccann MD POINT OF CARE TEST ORDERABLE S Performing Organization Address City/[facility]/ZIP Code Phon e Number [address] CERNER MILLENNIUM POCT Glucose (06/25/2013 3:28 PM EST) athologist Signature POC Glucose 111 60 - 199 CERNER mg/dL [facility] Comment: Supplemental ranges: <110 mg/dL before meals <200 mg/dL all other times of the day Specimen Anatomical Collection Method Collection Time Receive d Time (Source) Location / / Volume Laterality Blood specimen 06/25/2013 3:28 PM 013 3:28 (specimen) EST PM EST Tammy Mccann MD POINT OF CARE TEST ORDERABLE S Performing Organization Address City/[facility]/ZIP Code Phon e Number [address] CERNER MILLENNIUM Place PICC Line: Contact Vascular Access Page [phone] (06/25/2013 12:59 PM EST) Narrative Elizabeth Arguelles, PIGGERY WORKER - 06/25/2013 12: 59 PM EST [...] the planned procedu re. Hand Hygiene: The prepared foods supervisor did perform hand hygiene pr ior to line insertion. Catheter type: PICC Lot number: [id number] Procedure Technique: Skin was prepped with chlorhexidine. [...] Arguelles RN 06/18/2013 Procedure Note Elizabeth Arguelles, PIGGERY WORKER - 06/18/2013 9:5 1 AM EST [...] to the planned procedure. Hand Hygiene: The prepared foods supervisor did perform hand hygiene pr ior to line insertion. Catheter type: PICC Lot number: [id number] Procedure Technique: Skin was prepped with chlorhexidine. [...] Glucose 88 60 - 199 CERNER mg/dL [facility] Comment: Supplemental ranges: <110 mg/dL before meals <200 mg/dL all other times of the day Specimen Anatomical Collection Method Collection Time Receive d Time (Source) Location / / Volume Laterality Blood specimen 06/25/2013 11:53 3 (specimen) AM EST 11:53 AM EST Tammy Mccann MD POINT OF CARE TEST ORDERABLE S Performing Organization Address City/State/Z[place] [address] CERNER MILLENNIUM POCT Glucose [...] Address City/State/ZIP Code Phon e Number [address] CERNER MILLENNIUM Differential, Automated [...] Buckner MD HEMATOLOGY ORDERABLES Performing Organization Address City/[facility]/[place] [address] CERNER MILLENNIUM (ABNORMAL) CBC [...] Buckner MD HEMATOLOGY ORDERABLES Performing Organization Address City/[facility]/ZIP [facility] [place] [address] CERNER MILLENNIUM (ABNORMAL) Prealbumin (06/25/2013 5:55 AM EST) athologist Signature Prealbumin 11 (L) 20 - 40 CERNER mg/dL [facility] Comment: Prealbumin levels are generally lower in the pediatric population; adult concentrations are usually attained near puberty. Specimen Anatomical Collection Method Collection Time Receive d Time (Source) Location / / Volume Laterality Blood specimen 06/25/2013 5:55 AM 013 6:59 (specimen) EST AM EST Resulting Agency Comment Spec In Lab Ev Buckner MD CHEMISTRY ORDERABLES Performing Organization Address City/State/ZIP Code Phon e Number [address] CERNER MILLENNIUM Tacrolimus level (06/25/2013 5:55 AM EST) athologist Signature Tacrolimus Lvl 3.9 ng/mL CERNER [facility] Comment: Trough therapeutic: 5-15 ng/mL Specimen Anatomical Collection Method Collection Time Receive d Time (Source) Location / / Volume Laterality Blood specimen 06/25/2013 5:55 AM 013 8:05 (specimen) EST AM EST Resulting Agency Comment Spec In Lab Ev Buckner MD CHEMISTRY ORDERABLES Performing Organization Address City/[facility]/ZIP Code Phon e Number [address] CERNER MILLENNIUM POCT Glucose (06/25/2013 4:17 AM EST) athologist Signature POC Glucose 97 60 - 199 CERNER mg/dL [facility] Comment: Supplemental ranges: <110 mg/dL before meals <200 mg/dL all other times of the day Specimen Anatomical Collection Method Collection Time Receive d Time (Source) Location / / Volume Laterality Blood specimen 06/25/2013 4:17 AM 013 4:17 (specimen) EST AM EST Tammy Mccann MD POINT OF CARE TEST ORDERABLE S Performing Organization Address City/[facility]/ZIP Code Phon e Number [address] CERNER MILLENNIUM POCT Glucose [...] Address City/State/ZIP Code Phon e Number [address] CERNER MILLENNIUM POCT Glucose [...] Address City/State/ZIP Code Phon e Number [address] CERNER MILLENNIUM POCT Glucose [...] CARE TEST ORDERABLE S Performing Organization Address City/[facility]/ZIP Code Phon e Number [address] CERNER MILLENNIUM (ABNORMAL) POCT [...] Address City/State/ZIP Code Phon e Number [address] CERNER MILLENNIUM (ABNORMAL) POCT [...] CARE TEST ORDERABLE S Performing Organization Address City/[facility]/ZIP Code Phon e Number [address] CERNER MILLENNIUM POCT Glucose (06/24/2013 12:02 PM EST) P athologist Signature POC Glucose 193 60 - 199 CERNER mg/dL ENNIUM Comment: [...] Address City/State/ZIP Code Phon e Number [address] CERNER MILLENNIUM (ABNORMAL) CMP [...] of Diabetes Mellitus, Position Statement from the [place] [employer]. ??Diabete s Care, Volume 33, [...] Address City/State/ZIP Code Phon e Number [address] CERNER MILLENNIUM POCT Glucose (06/24/2013 7:46 AM EST) athologist [facility] POC Glucose 98 60 - 199 CERNER mg/dL [facility] Comment: Supplemental ranges: <110 mg/dL before meals <200 mg/dL all other times of the day Specimen Anatomical Collection Method Collection Time Receive d Time (Source) Location / / Volume Laterality Blood specimen 06/24/2013 7:46 AM 013 7:46 (specimen) EST AM EST Tammy Mccann MD POINT OF CARE TEST ORDERABLE S Performing Organization Address City/[facility]/ZIP Code Phon e Number [address] CERNER MILLENNIUM POCT Glucose [...] Address City/State/ZIP Code Phon e Number [address] CERNER MILLENNIUM POCT Glucose (06/24/2013 4:08 AM EST) athologist [facility] POC Glucose 99 60 - 199 CERNER [...] Address City/State/ZIP Code Phon e Number [address] CERNER MILLENNIUM Differential, Automated [...] Organization Address City/State/[place] [address] CERNER MILLENNIUM (ABNORMAL) CBC [...] Address City/State/ZIP Code Phon e Number [address] CERNER MILLENNIUM POCT Glucose [...] Address City/State/ZIP Code Phon e Number [address] CERNER MILLENNIUM (ABNORMAL) POCT Glucose (06/23/2013 10:23 PM EST) athologist Signature POC Glucose 249 (H) 60 - 199 CERNER mg/dL [facility] Comment: Supplemental ranges: <110 mg/dL before meals <200 mg/dL all other times of the day Specimen Anatomical Collection Method Collection Time Receive d Time (Source) Location / / Volume Laterality Blood specimen 06/23/2013 10:23 3 (specimen) PM EST 10:23 PM EST Tammy Mccann MD POINT OF CARE TEST ORDERABLE S Performing Organization Address City/State/ZIP Code Phon e Number [address] CERNER MILLENNIUM (ABNORMAL) POCT [...] Organization Address City/State/[place] [address] CERNER MILLENNIUM (ABNORMAL) POCT [...] Address City/State/ZIP Code Phon e Number [address] CERNER MILLENNIUM (ABNORMAL) POCT [...] Address City/State/ZIP Code Phon e Number [address] CERNER MILLENNIUM (ABNORMAL) POCT [...] Address City/State/ZIP Code Phon e Number [address] CERNER MILLENNIUM (ABNORMAL) POCT [...] CARE TEST ORDERABLE S Performing Organization Address City/[facility]/ZIP Code Phon e Number [address] CERNER MILLENNIUM (ABNORMAL) POCT [...] Address City/State/ZIP Code Phon e Number [address] CERNER MILLENNIUM (ABNORMAL) POCT [...] Organization Address City/State/[place] [address] CERNER MILLENNIUM Differential, Automated [...] Buckner MD HEMATOLOGY ORDERABLES Performing Organization Address City/[facility]/ZIP [facility] [place] [address] CERNER MILLENNIUM (ABNORMAL) CBC [...] Buckner MD HEMATOLOGY ORDERABLES Performing Organization Address City/[facility]/[place] [address] CERNER MILLENNIUM (ABNORMAL) CMP [...] of Diabetes Mellitus, Position Statement from the [place] [employer]. ??Diabete s Care, Volume 33, [...] COLE ENNIUM Estimated GFR >60 >=60 HOLLI Ramirez [...] Address City/State/ZIP Code Phon e Number [address] [facility] (ABNORMAL) POCT Glucose (06/23/2013 3:51 AM EST) athologist Signature POC Glucose 268 (H) 60 - 199 CERNER mg/dL [facility] Comment: Supplemental ranges: <110 mg/dL before meals <200 mg/dL all other times of the day Specimen Anatomical Collection Method Collection Time Receive d Time (Source) Location / / Volume Laterality Blood specimen 06/23/2013 3:51 AM 013 3:51 (specimen) EST AM EST Tammy Mccann MD POINT OF CARE TEST ORDERABLE S Performing Organization Address City/State/ZIP Code Phon e Number [address] [facility] POCT Glucose (06/23/2013 2:11 AM EST) [...] Address City/State/ZIP Code Phon e Number [address] CERNER MILLENNIUM (ABNORMAL) POCT [...] CARE TEST ORDERABLE S Performing Organization Address City/[facility]/ZIP Code Phon e Number [address] CERNER MILLENNIUM (ABNORMAL) POCT [...] Address City/State/ZIP Code Phon e Number [address] CERNER MILLENNIUM (ABNORMAL) POCT [...] CARE TEST ORDERABLE S Performing Organization Address City/[facility]/ZIP Code Phon e Number [address] CERNER MILLENNIUM (ABNORMAL) POCT [...] CARE TEST ORDERABLE S Performing Organization Address City/[facility]/ZIP Code Phon e Number [address] CERNER MILLENNIUM POCT Glucose [...] CARE TEST ORDERABLE S Performing Organization Address City/[facility]/[place] [address] CERNER MILLENNIUM POCT Glucose (06/22/2013 2:29 PM EST) athologist Signature POC Glucose 178 60 - 199 CERNER mg/dL [facility] Comment: Supplemental ranges: <110 mg/dL before meals <200 mg/dL all other times of the day Specimen Anatomical Collection Method Collection Time Receive d Time (Source) Location / / Volume Laterality Blood specimen 06/22/2013 2:29 PM 013 2:29 (specimen) EST PM EST Tammy Mccann MD POINT OF CARE TEST ORDERABLE S Performing Organization Address City/[facility]/ZIP Code Phon e Number [address] CERNER MILLENNIUM POCT Glucose (06/22/2013 1:20 PM EST) athologist Signature POC Glucose 187 60 - 199 CERNER mg/dL [facility] Comment: Supplemental ranges: <110 mg/dL before meals <200 mg/dL all other times of the day Specimen Anatomical Collection Method Collection Time Receive d Time (Source) Location / / Volume Laterality Blood specimen 06/22/2013 1:20 PM 013 1:20 (specimen) EST PM EST Tammy Mccann MD POINT OF CARE TEST ORDERABLE S Performing Organization Address City/[facility]/ZIP Code Phon e Number [address] CERNER MILLENNIUM POCT Glucose (06/22/2013 12:24 PM EST) athologist Signature POC Glucose 180 60 - 199 CERNER mg/dL [facility] Comment: Supplemental ranges: <110 mg/dL before meals <200 mg/dL all other times of the day Specimen Anatomical Collection Method Collection Time Receive d Time (Source) Location / / Volume Laterality Blood specimen 06/22/2013 12:24 3 (specimen) PM EST 12:24 PM EST Tammy Mccann MD POINT OF CARE TEST ORDERABLE S Performing Organization Address City/[facility]/ZIP Code Phon e Number [address] CERNER MILLENNIUM POCT Glucose [...] CARE TEST ORDERABLE S Performing Organization Address [facility] Phon e Number [address] [facility] POCT Glucose (06/22/2013 10:25 AM EST) athologist [...] CARE TEST ORDERABLE S Performing Organization Address [facility] Code Phon e Number [address] [facility] Vancomycin, trough (06/22/2013 10:20 AM EST) athologist Signature Vanc Trough 21.7 mg/L [facility] Comment: Therapeutic range for complicated infect ions such as bacteremia, endocarditis, osteomyelitis, meningitis, and hospital- acquired pneumonia caused by S. aureus: 15-20 mg/L Therapeutic range for other indications: 10-15 mg/L Toxic: >25 mg/L Reference: Vancomycin Therapeutic Monitoring: Duncan w and Recommendations from the ASHP, IDSA and SIDP Task Force. ??Am J Health- Syst Pharm. 2009; 66:82-98 Specimen Anatomical Collection Method Collection Time Receive d Time (Source) Location / / Volume Laterality Blood specimen 06/22/2013 10:20 3 (specimen) AM EST 10:33 AM EST Resulting Agency Comment Spec In Lab Ev Buckner MD CHEMISTRY ORDERABLES Performing Organization Address City/State/[place] [address] CERNER MILLENNIUM POCT Glucose [...] CARE TEST ORDERABLE S Performing Organization Address City/[facility]/ZIP Code Phon e Number [address] CERNER MILLENNIUM POCT Glucose [...] CARE TEST ORDERABLE S Performing Organization Address City/[facility]/Z[place] [address] CERNER MILLENNIUM POCT Glucose [...] Address City/State/ZIP Code Phon e Number [address] [facility] POCT Glucose (06/22/2013 5:09 AM EST) P athologist Signature POC Glucose 166 60 - 199 CERNER mg/dL [facility] Comment: Supplemental ranges: <110 mg/dL before meals <200 mg/dL all other times of the day Specimen Anatomical Collection Method Collection Time Receive d Time (Source) Location / / Volume Laterality Blood specimen 06/22/2013 5:09 AM 013 5:09 (specimen) EST AM EST Tammy Mccann MD POINT OF CARE TEST ORDERABLE S Performing Organization Address City/State/ZIP Code Phon e Number [address] [facility] MILLENNIUM POCT Glucose (06/22/2013 4:32 AM EST) athologist Signature POC Glucose 186 60 - 199 CERNER mg/dL [facility] Comment: Supplemental ranges: <110 mg/dL before meals <200 mg/dL all other times of the day Specimen Anatomical Collection Method Collection Time Receive d Time (Source) Location / / Volume Laterality Blood specimen 06/22/2013 4:32 AM 013 4:32 (specimen) EST AM EST Tammy Mccann MD POINT OF CARE TEST ORDERABLE S Performing Organization Address City/State/ZIP Code Phon e Number [address] [facility] Antibody screen (06/22/2013 4:00 AM EST) Analysis Performed At Patho logist Time Signature Ab Screen Negative [facility] Interp [facility] AREA[facility]NIUM Expires at [id number] CERNER [id number] on: MILLENNIUM Specimen Anatomical Collection Method Collection Time Receive d Time (Source) Location / / Volume Laterality Blood specimen 06/22/2013 4:00 AM 013 4:26 (specimen) EST AM EST Resulting Agency Comment Spec In Lab Ev Buckner MD BLOOD BANK ORDERABLES Performing Organization Address City/State/[place] [address] CERNER MILLENNIUM ABO/Rh Typing [...] City/State/ZIP Code Phon e Number [place] [phone] [facility] [address] CERNER MILLENNIUM Differential, Automated [...] City/State/ZIP Code Phon e Number [place] [phone] CERNER MILLENNIUM (ABNORMAL) Basic [...] Buckner MD CHEMISTRY ORDERABLES Performing Organization Address City/[facility] [place] [address] CERNER MILLENNIUM (ABNORMAL) CBC [...] Buckner MD HEMATOLOGY ORDERABLES Performing Organization Address City/[facility] [place] [address] CERNER MILLENNIUM POCT Glucose [...] Organization Address City/State/[place] [address] CERNER MILLENNIUM POCT Glucose [...] Organization Address City/State/[place] [address] CERNER MILLENNIUM POCT Glucose [...] Organization Address City/State/[place] [address] CERNER MILLENNIUM POCT Glucose [...] Address City/State/ZIP Code Phon e Number [address] CERNER MILLENNIUM (ABNORMAL) POCT [...] Address City/State/ZIP Code Phon e Number [address] CERNER MILLENNIUM (ABNORMAL) POCT [...] Organization Address City/State/[place] [address] CERNER MILLENNIUM (ABNORMAL) POCT [...] Address City/State/ZIP Code Phon e Number [address] CERNER MILLENNIUM (ABNORMAL) POCT [...] Organization Address City/State/[place] [address] CERNER MILLENNIUM (ABNORMAL) POCT [...] Organization Address City/State/ZIP [place] [address] CERNER MILLENNIUM (ABNORMAL) POCT Glucose (06/21/2013 2:30 PM EST) P athologist Signature POC Glucose 257 (H) 60 - 199 CERNER mg/dL [facility] Comment: Supplemental ranges: <110 mg/dL before meals <200 mg/dL all other times of the day Specimen Anatomical Collection Method Collection Time Receive d Time (Source) Location / / Volume Laterality Blood specimen 06/21/2013 2:30 PM 013 2:30 (specimen) EST PM EST Tammy Mccann MD POINT OF CARE TEST ORDERABLE S Performing Organization Address City/State/ZIP Code Phon e Number [place] [address] CERNER MILLENNIUM XR chest [...] Urinalysis with microscopic (06/21/2013 12:01 PM EST) [facility] Method Time Signature Glucose UA 300 [...] UA Clear Clear CERNER MILLENNIU M Spec [place] UA 1.011 1.002 - 1.030 CERNER MIL [...] Organization Address City/State/[place] [address] CERNER MILLENNIUM Urine culture Indwelling Catheter Urine (06/21/2013 12:00 PM EST) [facility] Method Time Signature Urine Culture CERNER ? Patient Name: LEROY DAILEY ?Ordered By: EV BUCKNER ? MR#: [id number] ?LOC: ??ICUS ? /Sex: ??1955 (58 years), [...] Organization Address City/State/ZIP [place] [address] CERNER [facility] (ABNORMAL) POCT Glucose (06/21/2013 11:34 AM EST) P athologist Signature POC Glucose 251 (H) 60 - 199 CERNER mg/dL [facility] Comment: Supplemental ranges: <110 mg/dL before meals <200 mg/dL all other times of the day Specimen Anatomical Collection Method Collection Time Receive d Time (Source) Location / / Volume Laterality Blood specimen 06/21/2013 11:34 3 (specimen) AM EST 11:34 AM EST Tammy Mccann MD POINT OF CARE TEST ORDERABLE S Performing Organization Address City/State/ZIP [place] [address] HOLLI BOSS MetricsENNIUM XR chest PA or AP- 1 view [...] 239 (H) 60 - 199 CERNER mg/dL [facility] Comment: Supplemental ranges: <110 mg/dL before meals <200 mg/dL all other times of the day Specimen Anatomical Collection Method Collection Time Receive d Time (Source) Location / / Volume Laterality Blood specimen 06/21/2013 7:55 AM 013 7:55 (specimen) EST AM EST Tammy Mccann MD POINT OF CARE TEST ORDERABLE S Performing Organization Address City/State/ZIP Code Phon e Number [address] [facility] MILLENNIUM Tacrolimus level (06/21/2013 7:50 [...] Organization Address City/State/[place] [address] CERNER MILLENNIUM (ABNORMAL) POCT [...] Address City/State/ZIP Code Phon e Number [address] CERNER MILLENNIUM (ABNORMAL) POCT [...] Address City/State/ZIP Code Phon e Number [address] CERNER MILLENNIUM (ABNORMAL) Differential, Automated (06/21/2013 4:30 AM EST) [facility] Method Time Signature Neutrophils % 71.7 [...] City/State/ZIP Code Phon e Number [place] [phone]OS[address] CERNER MILLENNIUM (ABNORMAL) Basic [...] City/State/ZIP Code Phon e Number [place] [phone] CERNER MILLENNIUM (ABNORMAL) CBC [...] Address City/State/ZIP Code Phon e Number [address] CERNER MILLENNIUM (ABNORMAL) POCT Glucose (06/21/2013 12:11 AM EST) P athologist Signature POC Glucose 225 (H) 60 - 199 CERNER mg/dL [facility] Comment: Supplemental ranges: <110 mg/dL before meals <200 mg/dL all other times of the day Specimen Anatomical Collection Method Collection Time Receive d Time (Source) Location / / Volume Laterality Blood specimen 06/21/2013 12:11 3 (specimen) AM EST 12:11 AM EST Tammy Mccann MD POINT OF CARE TEST ORDERABLE S Performing Organization Address City/[facility]/ZIP Code Phon e Number [address] CERNER MILLENNIUM POCT Glucose (06/20/2013 7:52 PM EST) P athologist Signature POC Glucose 148 60 - 199 CERNER [facility]/dL [facility] Comment: Supplemental ranges: <110 mg/dL before meals <200 mg/dL all other times of the day Specimen Anatomical Collection Method Collection Time Receive d Time (Source) Location / / Volume Laterality Blood specimen 06/20/2013 7:52 PM 013 7:52 (specimen) EST PM EST Tammy Mccann MD POINT OF CARE TEST ORDERABLE S Performing Organization Address City/State/ZIP Code Phon e Number [address] CERNER MILLENNIUM Potassium (06/20/2013 7:50 PM EST) athologist Signature Potassium 4.3 3.5 - 5.0 CERNER mmol/L [facility] Comment: Please note: ??Patients with WBC >100,00 [...] Mccann MD CHEMISTRY ORDERABLES Performing Organization Address City/[facility] Phon e Number [address] CERNER MILLENNIUM (ABNORMAL) POCT Glucose (06/20/2013 6:12 PM EST) athologist Signature POC Glucose 243 (H) 60 - 199 CERNER mg/dL [facility] Comment: Supplemental ranges: <110 mg/dL before meals <200 mg/dL all other times of the day Specimen Anatomical Collection Method Collection Time Receive d Time (Source) Location / / Volume Laterality Blood specimen 06/20/2013 6:12 PM 013 6:12 (specimen) EST PM EST Tammy Mccann MD POINT OF CARE TEST ORDERABLE S Performing Organization Address City/[facility]/[place] [address] CERNER MILLENNIUM (ABNORMAL) POCT [...] Address City/State/ZIP Code Phon e Number [address] CERNER MILLENNIUM POCT Glucose [...] CARE TEST ORDERABLE S Performing Organization Address City/[facility]/ZIP Code Phon e Number [address] CERNER MILLENNIUM POCT Glucose [...] Organization Address City/State/[place] [address] CERNER MILLENNIUM POCT Glucose [...] CARE TEST ORDERABLE S Performing Organization Address City/[facility]/[place] [address] CERNER MILLENNIUM Potassium (06/20/2013 [...] Mccann MD CHEMISTRY ORDERABLES Performing Organization Address City/[facility]/ZIP Code Phon e Number [address] CERNER MILLENNIUM Tacrolimus level (06/20/2013 8:00 AM EST) athologist [facility] Tacrolimus Lvl 4.8 ng/mL CERNER MILLENNIUM Comment: Trough therapeutic: 5-15 ng/mL Specimen Anatomical Collection Method Collection Time Receive d Time (Source) Location / / Volume Laterality Blood specimen 06/20/2013 8:00 AM 013 (specimen) EST 12:04 PM EST Resulting Agency Comment Spec In Lab Tammy Mccann MD CHEMISTRY ORDERABLES Performing Organization Address City/[facility]/ZIP Code Phon e Number [address] CERNER MILLENNIUM POCT Glucose (06/20/2013 6:17 AM EST) athologist Signature POC Glucose 136 60 - 199 CERNER mg/dL [facility] Comment: Supplemental ranges: <110 mg/dL before meals <200 mg/dL all other times of the day Specimen Anatomical Collection Method Collection Time Receive d Time (Source) Location / / Volume Laterality Blood specimen 06/20/2013 6:17 AM 11/27/2 013 6:17 (specimen) EST AM EST Tammy Mccann MD POINT OF CARE TEST ORDERABLE S Performing Organization Address City/State/ZIP Code [place] [address] CERNER MILLENNIUM (ABNORMAL) Differential, Automated (06/20/2013 5:00 AM EST) [facility] Method Time Signature Neutrophils % 66.0 [...] Address City/State/ZIP Code [place] [address] CERNER MILLENNIUM (ABNORMAL) Basic [...] Buckner MD CHEMISTRY ORDERABLES Performing Organization Address City/[facility] [place] [address] CERNER MILLENNIUM (ABNORMAL) CBC [...] Buckner MD HEMATOLOGY ORDERABLES Performing Organization Address City/[facility]/[place] [address] CERNER MILLENNIUM (ABNORMAL) BLOOD [...] Comment: Total Hemoglobin (in gm/dL) ?Based on [facility] [place]ematology ran ges: ?Age ?Referen [...] Mccann MD CHEMISTRY ORDERABLES Performing Organization Address City/[facility] [place] [address] CERNER MILLENNIUM POCT Glucose [...] Organization Address City/State/[place] [address] CERNER MILLENNIUM POCT Glucose [...] CARE TEST ORDERABLE S Performing Organization Address City/[facility]/[place] [address] CERNER MILLENNIUM Potassium (06/19/2013 [...] Mccann MD CHEMISTRY ORDERABLES Performing Organization Address City/[facility]/ZIP Code Phon e Number [address] CERNER MILLENNIUM POCT Glucose [...] Organization Address City/State/[place] [address] CERNER MILLENNIUM (ABNORMAL) BLOOD [...] Comment: Total Hemoglobin (in gm/dL) ?Based on [facility] Hematology ran ges: ?Age ?Referen [...] Mccann MD CHEMISTRY ORDERABLES Performing Organization Address City/[facility]/ZIP Code Phon e Number [address] CERNER MILLENNIUM Potassium (06/19/2013 9:15 PM EST) athologist Signature Potassium 4.4 3.5 - 5.0 CERNER mmol/L [facility] Comment: Please note: ??Patients with WBC >100,00 [...] Mccann MD CHEMISTRY ORDERABLES Performing Organization Address City/[facility]/[place] [address] CERNER MILLENNIUM POCT Glucose (06/19/2013 8:09 PM EST) athologist Signature POC Glucose 141 60 - 199 CERNER mg/dL [facility] Comment: Supplemental ranges: <110 mg/dL before meals <200 mg/dL all other times of the day Specimen Anatomical Collection Method Collection Time Receive d Time (Source) Location / / Volume Laterality Blood specimen 06/19/2013 8:09 PM 013 8:09 (specimen) EST PM EST Tammy Mccann MD POINT OF CARE TEST ORDERABLE S Performing Organization Address City/State/[place] [address] CERNER MILLENNIUM POCT Glucose [...] CARE TEST ORDERABLE S Performing Organization Address City/[facility]/[place] [address] CERNER MILLENNIUM Potassium (06/19/2013 4:43 PM EST) athologist [facility] Potassium 4.5 3.5 - 5.0 CERNER mmol/L [facility] Comment: Please note: ??Patients with WBC >100,00 [...] Organization Address City/State/[place] [address] CERNER MILLENNIUM POCT Glucose [...] CARE TEST ORDERABLE S Performing Organization Address City/[facility]/ZIP Code Phon e Number [address] CERNER MILLENNIUM Potassium (06/19/2013 12:21 PM EST) athologist Signature Potassium 4.7 3.5 - 5.0 CERNER mmol/L [facility] Comment: Please note: ??Patients with WBC >100,00 [...] Mccann MD CHEMISTRY ORDERABLES Performing Organization Address City/[facility]/ZIP Code Phon e Number [address] CERNER MILLENNIUM POCT Glucose (06/19/2013 12:01 PM EST) athologist Signature POC Glucose 198 60 - 199 CERNER mg/dL [facility] Comment: Supplemental ranges: <110 mg/dL before meals <200 mg/dL all other times of the day Specimen Anatomical Collection Method Collection Time Receive d Time (Source) Location / / Volume Laterality Blood specimen 06/19/2013 12:01 3 (specimen) PM EST 12:01 PM EST Tammy Mccann MD POINT OF CARE TEST ORDERABLE S Performing Organization Address City/[facility]/ZIP Code Phon e Number [address] CERNER MILLENNIUM Blood culture (06/19/2013 11:07 AM EST) [facility] gist Method Time Signature Blood Culture CERNER ? Patient Name: LEROY DAILEY ?Ordered By: TAMMY MCCANN ? MR#: [id number] ?LOC: ??3WST ? /Sex: ??1955 (58 years), [...] Organization Address City/State/Z[place] [address] CERNER MILLENNIUM POCT Glucose [...] Organization Address City/State/[place] [address] CERNER MILLENNIUM Differential, Automated [...] Organization Address City/State/[place] [address] CERNER MILLENNIUM (ABNORMAL) CBC [...] Mccann MD HEMATOLOGY ORDERABLES Performing Organization Address City/[facility]/[place] [address] [facility] MILLENNIUM POCT Glucose (06/19/2013 8:32 AM EST) [...] Address City/State/ZIP Code [place] [address] CERNER MILLENNIUM (ABNORMAL) BLOOD GAS 2 ARTERIAL (06/19/2013 8:32 AM EST) [facility] gist Method Time Signature pH Art 7.35 (L) CERNER MILLENNIUM pCO2 Art 29 (L) mmHg CERNER MILLENNIUM pO2 Art 119 (H) mmHg CERNER MILLENNIUM HCO3 Art 15.4 (L) mmol/L CERNER MILLENNIUM BE Art -10.0 (L) mmol/L CERNER MILLENNIUM Hgb Blood Gas 10.7 (L) gm/dL CERNER MILLENNIUM Comment: Total Hemoglobin (in gm/dL) ?Based [place] [facility] Hematology ran ges: ?Age ?Referen [...] City/State/ZIP Code Phon e Number [place] [phone] CERNER MILLENNIUM EBV PCR Quant (06/19/2013 8:25 AM EST) [facility] gist Method Time Signature EBV NONE DETECTED. CERNER PCR,Quantitat MILLENNIUM roderick ?Lower limit of detection is 500 copies/mL. Comment: This test was developed and its performa nce determined by the [facility] Dept. of Pathology, Clinical Laboratory. [...] Mccann MD HEMATOLOGY ORDERABLES Performing Organization Address City/[facility]/[place] [address] CERNER MILLENNIUM CMV PCR, Quantitative (06/19/2013 8:25 AM EST) Patholo gist Method Time Signature CMV DNA PCR Undetected Undetected CERNER Quant IU/mL MILLENNIUM Comment: Result in log IU/mL is Undetected. The quantification range of this assay i s 137 to 9,100,000 IU/mL (2.14 log to 6.96 log IU/mL) with a limit of detection at 91 IU/mL (1.96 log IU/mL). Testing was performed by the [employer] AmpliPrep/DEO T aqMan CMV Test ([employer] Test Performed by: [place] [address] [employer] Copperplate: Purnima Ayoub, Ph. D. Specimen Anatomical Collection Method Collection Time Receive d Time (Source) Location / / Volume Laterality Blood specimen 06/19/2013 8:25 AM 013 2:52 (specimen) EST PM EST Resulting Agency Comment Spec In Lab Tammy Mccann MD IMMUNOLOGY ORDERABLES Performing Organization Address City/[facility]/[place] [address] CERNER MILLENNIUM Potassium (06/19/2013 8:25 AM EST) P athologist Signature Potassium 5.0 3.5 - 5.0 CERNER mmol/L MILLENNIUM Comment: [...] Organization Address City/State/ZIP [place] [address] [facility] [address] HOLLI HivelocityIUM CT head WO contrast (06/19/2013 7:22 AM [...] 7.28 CERNER (Critical) MILLENNIUM Comment: Noted by optical instruments supervisor. pCO2 Art 31 (L) mmHg CERNER MILLENNIUM pO2 Art 95 mmHg CERNER MILLENNIUM HCO3 Art 14.0 (L) mmol/L CERNER MILLENNIUM BE Art -12.8 (L) mmol/L CERNER MILLENNIUM Hgb Blood Gas 9.0 (L) gm/dL HOLLI Ramirez Comment: Total Hemoglobin (in gm/dL) ?Based on [facility] Hematology ran ges: ?Age ?Referen [...] Organization Address City/State/[place] [address] CERNER MILLENNIUM POCT Glucose (06/19/2013 5:55 AM EST) athologist Signature POC Glucose 174 60 - 199 CERNER mg/dL [facility] Comment: Supplemental ranges: <110 mg/dL before meals <200 mg/dL all other times of the day Specimen Anatomical Collection Method Collection Time Receive d Time (Source) Location / / Volume Laterality Blood specimen 06/19/2013 5:55 AM 013 5:55 (specimen) EST AM EST Tammy Mccann MD POINT OF CARE TEST ORDERABLE S Performing Organization Address City/State/ZIP Code Phon e Number [address] [facility] Lactic acid, plasma (06/19/2013 4:15 AM EST) athologist Signature Lactate 0.6 0.5 - 2.2 CERNER mmol/L [facility] Specimen Anatomical Collection Method Collection Time Receive d Time (Source) Location / / Volume Laterality Blood specimen 06/19/2013 4:15 AM 013 4:23 (specimen) EST AM EST Resulting Agency Comment Spec In Lab Tammy Mccann MD CHEMISTRY ORDERABLES Performing Organization Address City/State/ZIP Code Phon e Number [address] CERNER MILLENNIUM (ABNORMAL) Basic Metabolic Panel (non-fasting) (06/19/2013 4:15 AM EST) athologist Signature Glucose Lvl 173 60 - 199 CERNER mg/dL [facility] Comment: Diabetes: >=200 mg/dL plus symp toms [...] Mccann MD CHEMISTRY ORDERABLES Performing Organization Address City/State/[facility] Phon e Number [place] [phone] CERNER MILLENNIUM POCT Glucose [...] Address City/State/ZIP Code Phon e Number [place] CUEVASMELI [place] [phone] CERNER MILLENNIUM (ABNORMAL) BLOOD GAS 2 ARTERIAL (06/19/2013 3:45 AM EST) P athologist Signature pH Art 7.17 CERNER (Critical) MILLENNIUM Comment: Noted by optical instruments supervisor. pCO2 Art 46 (H) mmHg CERNER MILLENNIUM pO2 Art 86 mmHg CERNER MILLENNIUM HCO3 Art 16.1 (L) mmol/L CERNER MILLENNIUM BE Art -12.4 (L) mmol/L CERNER MILLENNIUM Hgb Blood Gas 9.8 (L) gm/dL HOLLI Ramirez Comment: Total Hemoglobin (in gm/dL) ?Based [place] [facility] Hematology ran ges: ?Age ?Referen [...] Mccann MD CHEMISTRY ORDERABLES Performing Organization Address City/[facility]/ZIP [place] [address] CERNER MILLENNIUM Potassium (06/19/2013 [...] Mccann MD CHEMISTRY ORDERABLES Performing Organization Address City/[facility]/ZIP [place] [address] CERNER MILLENNIUM Tacrolimus level [...] Address City/State/ZIP Code Phon e Number [address] CERNER MILLENNIUM POCT Glucose [...] CARE TEST ORDERABLE S Performing Organization Address City/[facility]/ZIP Code Phon e Number [address] CERNER MILLENNIUM POCT Glucose [...] Address City/State/ZIP Code Phon e Number [address] CERNER MILLENNIUM Potassium (06/18/2013 [...] Mccann MD CHEMISTRY ORDERABLES Performing Organization Address [facility] Phon e Number [address] CERNER MILLENNIUM POCT Glucose [...] CARE TEST ORDERABLE S Performing Organization Address City/[facility]/[place] [address] CERNER MILLENNIUM POCT Glucose [...] CARE TEST ORDERABLE S Performing Organization Address City/[facility]/ZIP Code Phon e Number [address] CERNER MILLENNIUM POCT Glucose [...] Address City/State/ZIP Code Phon e Number [address] CERNER MILLENNIUM POCT Glucose [...] Organization Address City/State/[place] [address] CERNER MILLENNIUM (ABNORMAL) Basic [...] City/State/ZIP Code Phon e Number [place] [phone] CERNER MILLENNIUM POCT Glucose [...] CARE TEST ORDERABLE S Performing Organization Address City/[facility]/ZIP Code Phon e Number [address] CERNER MILLENNIUM Potassium (06/18/2013 [...] Mccann MD CHEMISTRY ORDERABLES Performing Organization Address City/[facility]/ZIP Code Phon e Number [address] CERNER MILLENNIUM POCT Glucose [...] CARE TEST ORDERABLE S Performing Organization Address City/[facility]/ZIP Code Phon e Number [address] CERNER MILLENNIUM POCT Glucose [...] City/State/ZIP Code Phon e Number [place] [phone] [employer] XR VAS venous access (PICC placement) (06/18/2013 [...] P athologist Signature Vanc Trough 15.4 mg/L [facility] [employer] Comment: Therapeutic range for complicated infect ions [...] Address City/State/ZIP Code Phon e Number [address] CERNER MILLENNIUM POCT Glucose [...] CARE TEST ORDERABLE S Performing Organization Address City/[facility]/ZIP Code Phon e Number [address] CERNER MILLENNIUM POCT Glucose [...] Address City/State/ZIP Code Phon e Number [address] CERNER MILLENNIUM Urine culture Indwelling Catheter Urine (06/18/2013 9:18 AM EST) [facility] Method Time Signature Urine Culture CERNER ? Patient Name: LEROY DAILEY ?Ordered By: TAMMY MCCANN ? MR#: [id number] ?LOC: ??ICUS ? /Sex: ??1955 (58 years), [...] Organization Address City/State/[place] [address] HOLLI MILLSHELDONIUM Lower Respiratory Culture Tracheal Aspirate (06/18/2013 9:18 AM EST) Component Value Ref Test Analysis Performed At [facility] Method Time Signature Lower CERNER Respiratory ? Patient Name: LEROY DAILEY ?Ordered By: TAMMY MCCANN Culture ? MR#: [id number] ?LOC: ??ICUS ? /Sex: ??1955 (58 years), [...] GENERAL ORDER STEPHANIE Performing Organization Address City/State/[place]IP [facility] [place] [address] CERNER MILLENNIUM Lipase (06/18/2013 [...] Organization Address City/State/[place] [address] CERNER MILLENNIUM (ABNORMAL) Amylase [...] Address City/State/ZIP Code Phon e Number [address] CERNER MILLENNIUM (ABNORMAL) Comprehensive [...] City/State/ZIP Code Phon e Number [place] [phone] CERNER MILLENNIUM POCT Glucose [...] Organization Address City/State/[place] [address] CERNER MILLENNIUM POCT Glucose (06/18/2013 6:59 AM EST) P athologist Signature POC Glucose 168 60 - 199 CERNER mg/dL [facility] Comment: Supplemental ranges: <110 mg/dL before meals <200 mg/dL all other times of the day Specimen Anatomical Collection Method Collection Time Receive d Time (Source) Location / / Volume Laterality Blood specimen 06/18/2013 6:59 AM 013 6:59 (specimen) EST AM EST Tammy Mccann MD POINT OF CARE TEST ORDERABLE S Performing Organization Address City/State/ZIP Code Phon e Number [address] [facility] Urine culture Urine (06/18/2013 6:37 AM EST) Patholo gist Method Time Signature Urine Culture CERNER ? Patient Name: LEROY DAILEY ?Ordered By: TAMMY MCCANN [facility] ? MR#: [id number] ?LOC: ??ICUS ? /Sex: ??1955 (58 years), ? Male ? PROCEDURE: Urine Culture ?SOURCE: U [facility] ? COLLECTED: 06/18/2013 06:37 ? STARTED: 06/18/2013 [...] City/State/ZIP Code Phon e Number [place] [phone] CERNER MILLENNIUM (ABNORMAL) Urinalysis with microscopic (06/18/2013 6:37 AM EST) [facility] Method Time Signature Glucose UA Negative [...] UA Clear Clear CERNER MILLENNIU M Spec [place] UA 1.011 1.002 - 1.030 CERNER MIL [...] Address City/State/ZIP Code Phon e Number [address] CERNER MILLENNIUM POCT Glucose [...] Address City/State/ZIP Code Phon e Number [address] CERNER MILLENNIUM Differential, Automated [...] 0.01 0.00 - 0.05 x10(3)/mcL CER NER [facility] Specimen Anatomical Collection Method Collection Time Receive d Time (Source) Location / / Volume Laterality Blood specimen 06/18/2013 6:10 AM 013 6:17 (specimen) EST AM EST Tammy Mccann MD HEMATOLOGY ORDERABLES Performing Organization Address City/State/ZIP Code Phon e Number [address] [facility] (ABNORMAL) Magnesium (06/18/2013 6:10 AM EST) athologist Signature Magnesium 0.62 (L) 0.69 - 1.07 CERNER mmol/L [facility] Specimen Anatomical Collection Method Collection Time Receive d Time (Source) Location / / Volume Laterality Blood specimen 06/18/2013 6:10 AM 013 6:17 (specimen) EST AM EST Resulting Agency Comment Spec In Lab Tammy Mccann MD CHEMISTRY ORDERABLES Performing Organization Address City/[facility]/ZIP Code Phon e Number [address] [facility] (ABNORMAL) BMP w/fasting Glucose (06/18/2013 6:10 AM EST) P athologist Signature Glucose 163 (H) 65 - 99 CERNER Fasting mg/dL [facility] Comment: ?Fasting* Glucose Interpretive C riteria [...] of Diabetes Mellitus, Position Statement from the [place] [employer]. ??Diabete s Care, Volume 33, [...] City/State/ZIP Code Phon e Number [place] [phone] CERNER MILLENNIUM (ABNORMAL) CBC [...] City/State/ZIP Code Phon e Number [place] [phone] CERNER MILLENNIUM (ABNORMAL) BLOOD [...] Comment: Total Hemoglobin (in gm/dL) ?[place] [facility] [place]emat[place] ran ges: ?Age ?Referen [...] Mccann MD CHEMISTRY ORDERABLES Performing Organization Address City/[facility]/ZIP Code Phon e Number [address] CERNER MILLENNIUM POCT Glucose [...] CARE TEST ORDERABLE S Performing Organization Address City/[facility]/ZIP Code Phon e Number [address] CERNER MILLENNIUM POCT Glucose (06/18/2013 3:14 AM EST) athologist Signature POC Glucose 161 60 - 199 CERNER mg/dL [facility] Comment: Supplemental ranges: <110 mg/dL before meals <200 mg/dL all other times of the day Specimen Anatomical Collection Method Collection Time Receive d Time (Source) Location / / Volume Laterality Blood specimen 06/18/2013 3:14 AM 013 3:14 (specimen) EST AM EST Tammy Mccann MD POINT OF CARE TEST ORDERABLE S Performing Organization Address City/State/ZIP Code Phon e Number [address] CERNER MILLENNIUM POCT Glucose (06/18/2013 2:15 AM EST) athologist Signature POC Glucose 137 60 - 199 CERNER mg/dL [facility] Comment: Supplemental ranges: <110 mg/dL before meals <200 mg/dL all other times of the day Specimen Anatomical Collection Method Collection Time Receive d Time (Source) Location / / Volume Laterality Blood specimen 06/18/2013 2:15 AM 013 2:15 (specimen) EST AM EST Tammy Mccann MD POINT OF CARE TEST ORDERABLE S Performing Organization Address City/[facility]/[place] [address] CERNER MILLENNIUM (ABNORMAL) Magnesium (06/18/2013 2:15 AM EST) athologist Signature Magnesium 0.65 (L) 0.69 - 1.07 CERNER mmol/L [facility] Specimen Anatomical Collection Method Collection Time Receive d Time (Source) Location / / Volume Laterality Blood specimen 06/18/2013 2:15 AM 013 2:24 (specimen) EST AM EST Resulting Agency Comment Spec In Lab Tammy Mccann MD CHEMISTRY ORDERABLES Performing Organization Address City/[facility]/ZIP Code Phon e Number [address] CERNER MILLENNIUM (ABNORMAL) Potassium (06/18/2013 2:15 AM EST) athologist [facility] Potassium 5.1 (H) 3.5 - 5.0 CERNER mmol/L [facility] Comment: Please note: ??Patients with WBC >100,00 [...] Mccann MD CHEMISTRY ORDERABLES Performing Organization Address City/[facility]/[place] [address] CERNER MILLENNIUM POCT Glucose [...] Address City/State/ZIP Code Phon e Number [address] CERNER MILLENNIUM POCT Glucose [...] Address City/State/ZIP Code Phon e Number [address] CERNER MILLENNIUM POCT Glucose [...] Address City/State/ZIP Code Phon e Number [address] CERNER MILLENNIUM (ABNORMAL) Potassium (06/17/2013 10:20 PM EST) athologist Signature Potassium 5.3 (H) 3.5 - 5.0 CERNER mmol/L [facility] Comment: Please note: ??Patients with WBC >100,00 [...] Mccann MD CHEMISTRY ORDERABLES Performing Organization Address City/[facility] Phon e Number [address] CERNER MILLENNIUM (ABNORMAL) Magnesium (06/17/2013 10:20 PM EST) athologist Signature Magnesium 0.62 (L) 0.69 - 1.07 CERNER mmol/L [facility] Specimen Anatomical Collection Method Collection Time Receive d Time (Source) Location / / Volume Laterality Blood specimen 06/17/2013 10:20 3 (specimen) PM EST 10:25 PM EST Resulting Agency Comment Spec In Lab Tammy Mccann MD CHEMISTRY ORDERABLES Performing Organization Address City/[facility]/[place] [address] CERNER MILLENNIUM POCT Glucose (06/17/2013 10:17 PM EST) athologist Signature POC Glucose 151 60 - 199 CERNER mg/dL [facility] Comment: Supplemental ranges: <110 mg/dL before meals <200 mg/dL all other times of the day Specimen Anatomical Collection Method Collection Time Receive d Time (Source) Location / / Volume Laterality Blood specimen 06/17/2013 10:17 3 (specimen) PM EST 10:17 PM EST Tammy Mccann MD POINT OF CARE TEST ORDERABLE S Performing Organization Address City/[facility]/ZIP Code Phon e Number [place] [phone] CERNER MILLENNIUM POCT Glucose [...] Address City/State/ZIP Code Phon e Number [address] CERNER MILLENNIUM (ABNORMAL) BLOOD [...] Comment: Total Hemoglobin (in gm/dL) ?[place] [facility] [place]ematology ran ges: ?Age ?Referen [...] Organization Address City/State/ZIP [place] [address] CERNER MILLENNIUM POCT Glucose [...] CARE TEST ORDERABLE S Performing Organization Address City/[facility]/ZIP Code Phon e Number [address] CERNER MILLENNIUM POCT Glucose (06/17/2013 6:43 PM EST) athologist Signature POC Glucose 155 60 - 199 CERNER mg/dL [facility] Comment: Supplemental ranges: <110 mg/dL before meals <200 mg/dL all other times of the day Specimen Anatomical Collection Method Collection Time Receive d Time (Source) Location / / Volume Laterality Blood specimen 06/17/2013 6:43 PM 013 6:43 (specimen) EST PM EST Tammy Mccann MD POINT OF CARE TEST ORDERABLE S Performing Organization Address City/State/ZIP Code Phon e Number [address] CERNER MILLENNIUM Lactic acid, plasma (06/17/2013 6:15 PM EST) athologist Signature Lactate 0.5 0.5 - 2.2 CERNER mmol/L [facility] Specimen Anatomical Collection Method Collection Time Receive d Time (Source) Location / / Volume Laterality Blood specimen 06/17/2013 6:15 PM 013 6:19 (specimen) EST PM EST Resulting Agency Comment Spec In Lab Tammy Mccann MD CHEMISTRY ORDERABLES Performing Organization Address City/[facility]/ZIP Code Phon e Number [address] CERNER MILLENNIUM (ABNORMAL) BLOOD [...] Comment: Total Hemoglobin (in gm/dL) ?Based on [facility] Hematology ran ges: ?Age ?Referen [...] Mccann MD CHEMISTRY ORDERABLES Performing Organization Address [facility] [place] [address] CERNER MILLENNIUM (ABNORMAL) Calcium [...] Mccann MD CHEMISTRY ORDERABLES Performing Organization Address [facility] [place] [address] CERNER MILLENNIUM Phosphorus (06/17/2013 [...] Organization Address City/State/[place] [address] CERNER MILLENNIUM (ABNORMAL) Magnesium (06/17/2013 5:45 PM EST) athologist Signature Magnesium 0.55 (L) 0.69 - 1.07 CERNER mmol/L [facility] Specimen Anatomical Collection Method Collection Time Receive d Time (Source) Location / / Volume Laterality Blood specimen 06/17/2013 5:45 PM 013 5:53 (specimen) EST PM EST Resulting Agency Comment Spec In Lab Tammy Mccann MD CHEMISTRY ORDERABLES Performing Organization Address City/[facility]/ZIP Code Phon e Number [address] CERNER MILLENNIUM (ABNORMAL) BMP w/fasting Glucose (06/17/2013 5:45 PM EST) athologist Signature Glucose 181 (H) 65 - 99 CERNER Fasting mg/dL [facility] Comment: ?Fasting* Glucose Interpretive C riteria Normal [...] of Diabetes Mellitus, Position Statement from the [place] [employer]. ??Diabete s Care, Volume 33, [...] City/State/ZIP Code Phon e Number [place] [phone] CERNER MILLENNIUM POCT Glucose [...] Organization Address City/State/[place] [address] CERNER MILLENNIUM POCT Glucose [...] CARE TEST ORDERABLE S Performing Organization Address City/[facility]/ZIP Code Phon e Number [address] CERNER MILLENNIUM CT chest [...] CARE TEST ORDERABLE S Performing Organization Address City/[facility]/[place] [address] CERNER MILLENNIUM (ABNORMAL) Potassium [...] Mccann MD CHEMISTRY ORDERABLES Performing Organization Address City/[facility]/ZIP Code Phon e Number [address] CERNER MILLENNIUM (ABNORMAL) POCT [...] CARE TEST ORDERABLE S Performing Organization Address City/[facility]/[place] [address] CERNER MILLENNIUM (ABNORMAL) POCT [...] CARE TEST ORDERABLE S Performing Organization Address City/[facility]/ZIP Code Phon e Number [address] CERNER MILLENNIUM (ABNORMAL) POCT [...] CARE TEST ORDERABLE S Performing Organization Address City/[facility]/ZIP [place] [address] CERNER MILLENNIUM Tacrolimus level [...] Address City/State/ZIP Code [place] [address] HOLLI [facility] Lower Respiratory Culture Tracheal Aspirate (06/17/2013 10:48 AM EST) Component Value Ref Test Analysis Performed At [facility] Range Method Time Signature Lower [facility] Respiratory ? Patient Name: LEROY DAILEY ?Ordered By: TAMMY MCCANN [facility] Culture ? MR#: [id number] ?LOC: ??ICUS ? /Sex: ??1955 (58 years), [...] Organization Address City/State/[place] [address] CERNER MILLENNIUM (ABNORMAL) POCT Glucose (06/17/2013 8:40 AM EST) athologist Signature POC Glucose 215 (H) 60 - 199 CERNER mg/dL [facility] Comment: Supplemental ranges: <110 mg/dL before meals <200 mg/dL all other times of the day Specimen Anatomical Collection Method Collection Time Receive d Time (Source) Location / / Volume Laterality Blood specimen 06/17/2013 8:40 AM 013 8:40 (specimen) EST AM EST Tammy Mccann MD POINT OF CARE TEST ORDERABLE S Performing Organization Address City/[facility]/ZIP Code Phon e Number [address] CERNER MILLENNIUM (ABNORMAL) Potassium (06/17/2013 8:35 AM EST) athologist [facility] Potassium 5.7 (H) 3.5 - 5.0 CERNER mmol/L [facility] Comment: Please note: ??Patients with WBC >100,00 [...] Organization Address City/State/[place] [address] CERNER MILLENNIUM POCT Glucose (06/17/2013 6:30 AM EST) athologist Signature POC Glucose 186 60 - 199 CERNER mg/dL [facility] Comment: Supplemental ranges: <110 mg/dL before meals <200 mg/dL all other times of the day Specimen Anatomical Collection Method Collection Time Receive d Time (Source) Location / / Volume Laterality Blood specimen 06/17/2013 6:30 AM 11/24/2 013 6:30 (specimen) EST AM EST Tammy Mccann MD POINT OF CARE TEST ORDERABLE S Performing Organization Address City/State/ZIP Code Phon e Number [address] CERNER MILLENNIUM (ABNORMAL) POCT [...] Organization Address City/State/[place] [address] CERNER MILLENNIUM (ABNORMAL) Differential, [...] % 0.20 0.00 - CERNER 0.66 % [facility] Comment: Immature granulocytes(IG's)percentage an d absolute count [...] Mccann MD HEMATOLOGY ORDERABLES Performing Organization Address [facility] Phon e Number [address] [facility] Vancomycin, trough (06/17/2013 3:30 AM EST) P athologist Signature Vanc Trough 20.4 mg/L [facility] Comment: Therapeutic range for complicated infect ions [...] Buckner MD CHEMISTRY ORDERABLES Performing Organization Address [facility] Phon e Number [address] [facility] (ABNORMAL) CBC (with Diff) (06/17/2013 3:30 AM [...] 125 (L) 145 - 370 x10(3)/mcL CERNER NE LLENNIUM RDWSD 55.0 (H) 35.0 - 46.0 [...] Organization Address City/State/ZIP [place] [address] [facility] (ABNORMAL) Basic Metabolic Panel (non-fasting) (06/17/2013 3:30 [...] Organization Address City/State/ZIP [place] [address] CERNER MILLENNIUM POCT Glucose (06/17/2013 2:53 AM EST) athologist Signature POC Glucose 165 60 - 199 CERNER mg/dL [facility] Comment: Supplemental ranges: <110 mg/dL before meals <200 mg/dL all other times of the day Specimen Anatomical Collection Method Collection Time Receive d Time (Source) Location / / Volume Laterality Blood specimen 06/17/2013 2:53 AM 11/24/2 013 2:53 (specimen) EST AM EST Tammy Mccann MD POINT OF CARE TEST ORDERABLE S Performing Organization Address City/[facility]/[place] [address] [facility] EKG 12 Lead (06/17/2013 2:20 AM EST) Component Value Ref Range Test Analysis Performed Pathologis t Method Time At Signature Ventricular rate 66 BPM MUSE SYSTEM Atrial Rate 66 BPM MUSE SYSTEM P-R Interval 182 ms MUSE SYSTEM QRS Duration 104 ms MUSE SYSTEM Q-T Interval 406 ms MUSE SYSTEM QTC Calculated 425 ms MUSE SYSTEM (Bezet) Calculated P Lafferty 4 degrees MUSE SYSTEM Calculated R Lafferty -13 degrees MUSE SYSTEM Calculated T Lafferty 58 degrees MUSE SYSTEM INTERPRETATION Normal sinus [...] Mccann MD ECG ORDERABLES Performing Organization Address City/[facility]/ZIP Code Phon e Number MUSE SYSTEM POCT Glucose (06/17/2013 1:11 AM EST) P athologist Signature POC Glucose 129 60 - 199 CERNER mg/dL [facility] Comment: [...] City/State/ZIP Code Phon e Number [place] [phone] [facility] MILLENNIUM (ABNORMAL) Potassium (06/17/2013 12:15 AM EST) P athologist Signature Potassium 6.4 3.5 - 5.0 CERNER (Critical) mmol/L [facility] Comment: Called by: RF, Read back by: [...] Mccann MD CHEMISTRY ORDERABLES Performing Organization Address City/[facility]/ZIP Code Phon e Number [address] CERNER MILLENNIUM POCT Glucose [...] CARE TEST ORDERABLE S Performing Organization Address City/[facility]/ZIP Code Phon e Number [address] CERNER MILLENNIUM POCT Glucose [...] CARE TEST ORDERABLE S Performing Organization Address City/[facility]/[place] [address] [facility] POCT Glucose (06/16/2013 10:06 PM EST) athologist Signature POC Glucose 118 60 - 199 CERNER mg/dL Comment: Supplemental ranges: <110 mg/dL before meals <200 mg/dL all other times of the day Specimen Anatomical Collection Method Collection Time Receive d Time (Source) Location / / Volume Laterality Blood specimen 06/16/2013 10:06 3 (specimen) PM EST 10:06 PM EST Tammy Mccann MD POINT OF CARE TEST ORDERABLE S Performing Organization Address City/State/ZIP Code Phon e Number [address] [facility] XR abdomen 1 view (06/16/2013 9:47 PM [...] Glucose 119 60 - 199 CERNER mg/dL [facility] Comment: Supplemental ranges: <110 mg/dL before meals <200 mg/dL all other times of the day Specimen Anatomical Collection Method Collection Time Receive d Time (Source) Location / / Volume Laterality Blood specimen 06/16/2013 9:44 PM 013 9:44 (specimen) EST PM EST Tammy Mccann MD POINT OF CARE TEST ORDERABLE S Performing Organization Address City/[facility]/[place] [address] CERNER MILLENNIUM POCT Glucose [...] CARE TEST ORDERABLE S Performing Organization Address City/[facility]/ZIP Code Phon e Number [address] CERNER MILLENNIUM POCT Glucose [...] CARE TEST ORDERABLE S Performing Organization Address City/[facility]/[place] [address] CERNER MILLENNIUM (ABNORMAL) Potassium [...] Volume Laterality Blood specimen 06/16/2013 7:50 PM 11/23/2 013 8:01 (specimen) EST PM EST Resulting Agency Comment Spec In Lab Tammy Mccann MD CHEMISTRY ORDERABLES Performing Organization Address City/[facility]/ZIP Code Phon e Number [address] CERNER MILLENNIUM Tacrolimus level [...] Mccann MD CHEMISTRY ORDERABLES Performing Organization Address City/[facility]/ZIP [facility] [place] [address] CERNER MILLENNIUM POCT Glucose [...] CARE TEST ORDERABLE S Performing Organization Address City/[facility]/ZIP Code Phon e Number [address] CERNER MILLENNIUM POCT Glucose [...] CARE TEST ORDERABLE S Performing Organization Address City/[facility]/[place] [address] CERNER MILLENNIUM POCT Glucose [...] CARE TEST ORDERABLE S Performing Organization Address City/[facility]/[place] [address] CERNER MILLENNIUM POCT Glucose [...] Organization Address City/State/[place] [address] CERNER MILLENNIUM Potassium (06/16/2013 [...] Mccann MD CHEMISTRY ORDERABLES Performing Organization Address City/[facility]/ZIP Code Phon e Number [address] CERNER MILLENNIUM POCT Glucose [...] CARE TEST ORDERABLE S Performing Organization Address City/[facility]/ZIP Code Phon e Number [address] CERNER MILLENNIUM POCT Glucose [...] CARE TEST ORDERABLE S Performing Organization Address City/[facility]/ZIP Code Phon e Number [address] CERNER MILLENNIUM (ABNORMAL) POCT [...] City/State/ZIP Code Phon e Number [place] [phone]OS[address] CERNER MILLENNIUM EKG 12 [...] 432 ms MUSE SYSTEM (Bezet) Calculated P Lafferty 63 degrees MUSE SYSTEM Calculated R Lafferty -21 degrees MUSE SYSTEM Calculated T Lafferty 56 degrees MUSE SYSTEM INTERPRETATION Normal sinus [...] 7.26 CERNER (Critical) MILLENNIUM Comment: Noted by optical instruments supervisor. pCO2 Art 38 mmHg CERNER MILLENNIUM pO2 Art 209 (H) mmHg CERNER MILLENNIUM HCO3 Art 16.6 (L) mmol/L CERNER MILLENNIUM BE Art -10.6 (L) mmol/L CERNER MILLENNIUM Hgb Blood Gas 11.0 (L) gm/dL HOLLI Ramirez Comment: Total Hemoglobin (in gm/dL) ?[place] [facility] [place]ematology ran ges: ?Age ?Referen [...] Mccann MD CHEMISTRY ORDERABLES Performing Organization Address City/[facility]/ZIP Code Phon e Number [address] CERNER MILLENNIUM (ABNORMAL) POCT [...] CARE TEST ORDERABLE S Performing Organization Address City/[facility]/ZIP Code Phon e Number [address] CERNER MILLENNIUM (ABNORMAL) Beta [...] Mccann MD CHEMISTRY ORDERABLES Performing Organization Address City/[facility]/ZIP Code Phon e Number [address] CERNER MILLENNIUM (ABNORMAL) Potassium [...] Address City/State/ZIP Code Phon e Number [address] CERNER MILLENNIUM (ABNORMAL) POCT Glucose (06/16/2013 11:17 AM EST) athologist Signature POC Glucose 270 (H) 60 [...] CARE TEST ORDERABLE S Performing Organization Address City/[facility]/ZIP Code Phon e Number [address] CERNER MILLENNIUM (ABNORMAL) POCT [...] CARE TEST ORDERABLE S Performing Organization Address City/[facility]/ZIP Code Phon e Number [address] CERNER MILLENNIUM XR chest [...] vascular hypertension. Clinical correlation. Impression Kathya Haddad JAVA MANAGER IMG DX ORDERABLES XR abdomen 1 view [...] not visualized on image. Impression Kathya Haddad JAVA MANAGER IMG DX ORDERABLES (ABNORMAL) POCT Glucose (06/16/2013 8:01 AM EST) P athologist Signature POC Glucose 289 (H) 60 - 199 CERNER mg/dL [facility] Comment: Supplemental ranges: <110 mg/dL before meals <200 mg/dL all other times of the day Specimen Anatomical Collection Method Collection Time Receive d Time (Source) Location / / Volume Laterality Blood specimen 06/16/2013 8:01 AM 013 8:01 (specimen) EST AM EST Tammy Mccann MD POINT OF CARE TEST ORDERABLE S Performing Organization Address City/State/ZIP Code [place] [address] CERNER MILLENNIUM (ABNORMAL) BLOOD GAS 2 ARTERIAL (06/16/2013 7:55 AM EST) P athologist Signature pH Art 7.13 CERNER (Critical) MILLENNIUM Comment: Noted by optical instruments supervisor. pCO2 Art 51 (Critical) mmHg DELLANER MILLENNIU M Comment: Noted by optical instruments supervisor. pO2 Art 194 (H) mmHg CERNER MILLENNIUM HCO3 Art 16.6 (L) mmol/L CERNER MILLENNIUM BE Art -12.6 (L) mmol/L CERNER MILLENNIUM Hgb Blood Gas 11.6 (L) gm/dL HOLLI Ramirez Comment: Total Hemoglobin (in gm/dL) ?Based [place] [facility] Hematology ran ges: ?Age ?Referen [...] mmol/L CERNER MILL ENNIUM Comment: Noted by optical instruments supervisor. Please note: Patients with WBC >100,000 may [...] Organization Address City/State/ZIP [place] [address] CERNER MILLENNIUM (ABNORMAL) Differential, Automated (06/16/2013 7:00 AM EST) [facility] Method Time Signature Neutrophils % 74.7 (H) [...] 7:05 (specimen) EST AM EST Kathya Haddad JAVA MANAGER HEMATOLOGY ORDERABLES Performing Organization Address City/[facility]/ZIP Code Phon e Number [address] [facility] Lactic acid, plasma (06/16/2013 7:00 AM EST) P athologist Signature Lactate 0.7 0.5 - 2.2 CERNER mmol/L MILLENNIUM Specimen Anatomical Collection Method Collection Time Receive d Time (Source) Location / / Volume Laterality Blood specimen 06/16/2013 7:00 AM 013 7:05 (specimen) EST AM EST Resulting Agency Comment Spec In Lab Kathya Haddad JAVA MANAGER CHEMISTRY ORDERABLES Performing Organization Address City/[facility]/ZIP Code Phon e Number [address] CERNER MILLENNIUM (ABNORMAL) Prothrombin Time (06/16/2013 7:00 AM EST) athologist Signature PT 17.2 (H) 12.0 - 15.0 CERNER sec MILLENNIUM Comment: [facility] Transfusion Committee Guidelines: I NR less than [...] Address City/State/ZIP Code Phon e Number [address] [facility] (ABNORMAL) Comprehensive metabolic panel (non-fasting) (06/16/2013 7:00 [...] rechecked. Called by: Candelaria VERDIN ack by: Purniam Larose, Date/Time:06/16/13 08:00. Please note: ??Patients with [...] City/State/ZIP Code Phon e Number [place] [phone]OS[address] CERNER MILLENNIUM (ABNORMAL) CBC [...] Organization Address City/State/[place] [address] [facility] MILLENNIUM Surgical Pathology Report (06/16/2013 5:46 AM EST) Component Value Ref Test Analysis Performed At Patholo gist Range Method Time Signature Surgical CERNER Pathology ? [facility] MILLENNIUM Report ? Provider: ?? TAMMY MCCANN ?Pt. Name: ?? LEROY MOYER ? Acc #: ?[id number] ?Pt. MRN: ?[id number] ? Col Date: ?? 06/16/20 13 ?/Sex: [...] MD PATHOLOGY/CYTOLOGY ORDERABLE S Performing Organization Address City/[facility]/[place] [address] CERNER MILLENNIUM Specimen to [...] MD PATHOLOGY/CYTOLOGY ORDERABLE S Performing Organization Address City/[facility]/[place] [address] CERNER MILLENNIUM (ABNORMAL) BLOOD GAS 2 ARTERIAL (06/16/2013 5:10 AM EST) athologist Signature pH Art 7.22 CERNER (Critical) MILLENNIUM Comment: Noted by optical instruments supervisor. pCO2 Art 53 (Critical) mmHg [facility] MILLENNIU M Comment: Noted by optical instruments supervisor. pO2 Art 134 (H) mmHg CERNER MILLENNIUM HCO3 Art 20.9 mmol/L CERNER MILLENNIUM BE Art -6.8 (L) mmol/L CERNER MILLENNIUM Hgb Blood Gas 11.6 (L) gm/dL DELLANER NELLIEIU M Comment: Total Hemoglobin (in gm/dL) ?Based on [facility] Hematology ran ges: ?Age ?Referen [...] Organization Address City/State/ZIP [place] [address] CERNER MILLENNIUM (ABNORMAL) Potassium (06/16/2013 3:49 AM EST) athologist Signature Potassium 6.2 3.5 - 5.0 CERNER (Critical) mmol/L MILLENNIUM Comment: Results rechecked. Called by: [facility], Read back by: Alondra Lino, Date/Time:06/16/13 04:24. [...] City/State/ZIP Code Phon e Number [place] [phone]OS[address] CERNER MILLENNIUM XR chest [...] 438 ms MUSE SYSTEM (Bezet) Calculated P Lafferty 54 degrees MUSE SYSTEM Calculated R Lafferty -16 degrees MUSE SYSTEM Calculated T Lafferty 50 degrees MUSE SYSTEM INTERPRETATION Sinus rhythm [...] SYSTEM Blood culture (06/16/2013 2:00 AM EST) [facility] gist Method Time Signature Blood Culture CERNER ? Patient Name: LEROY DAILEY ?Ordered By: TAMMY MCCANN [facility] ? MR#: [id number] ?LOC: ??ICUS ? /Sex: ??1955 (58 years), [...] Organization Address City/State/[place] [address] CERNER MILLENNIUM (ABNORMAL) Differential, Manual (06/16/2013 1:45 AM EST) [facility] gist Method Time Signature Neutrophil % 65 [...] Mccann MD HEMATOLOGY ORDERABLES Performing Organization Address City/[facility]/[place] [address] CERNER MILLENNIUM Antibody screen (06/16/2013 1:45 AM EST) Analysis Performed At Patho logist Time Signature Ab Screen Negative [facility] Expires at [id number] [facility] [id number] on: [facility] Specimen Anatomical Collection Method Collection Time Receive d Time (Source) Location / / Volume Laterality Blood specimen 06/16/2013 1:45 AM 013 2:06 (specimen) EST AM EST Resulting Agency Comment Spec In Lab Tammy Mccann MD BLOOD BANK ORDERABLES Performing Organization Address City/State/[place] [address] [facility] ABO/Rh Typing (06/16/2013 1:45 AM EST) P athologist Signature ABORh Type O Pos [facility] Specimen Anatomical Collection Method Collection Time Receive d Time (Source) Location / / Volume Laterality Blood specimen 06/16/2013 1:45 AM 013 2:06 (specimen) EST AM EST Resulting Agency Comment Spec In Lab Tammy Mccann MD BLOOD BANK ORDERABLES Performing Organization Address City/State/ZIP Code Phon e Number [address] [facility] Gold Tube HOLD (06/16/2013 1:45 AM EST) P athologist Signature Gold Hold Sample in [facility]. [facility] Specimen Anatomical Collection Method Collection Time Receive d Time (Source) Location / / Volume Laterality Blood specimen 06/16/2013 1:45 AM 013 2:05 (specimen) EST AM EST Tammy Mccann MD CHEMISTRY ORDERABLES Performing Organization Address City/[facility]/[place] [address] [facility] Phosphorus (06/16/2013 1:45 AM EST) P athologist Signature Phosphorus 2.8 2.5 - 4.5 CERNER mg/dL [facility] Specimen Anatomical Collection Method Collection Time Receive d Time (Source) Location / / Volume Laterality Blood specimen 06/16/2013 1:45 AM 013 2:01 (specimen) EST AM EST Resulting Agency Comment Spec In Lab Tammy Mccann MD CHEMISTRY ORDERABLES Performing Organization Address City/[facility]/ZIP Code Phon e Number [address] CERNER MILLENNIUM (ABNORMAL) Magnesium (06/16/2013 1:45 AM EST) P athologist Signature Magnesium 0.58 (L) 0.69 - 1.07 CERNER mmol/L MILLENNIUM Specimen Anatomical Collection Method Collection Time Receive d Time (Source) Location / / Volume Laterality Blood specimen 06/16/2013 1:45 AM 013 2:01 (specimen) EST AM EST Resulting Agency Comment Spec In Lab Tammy Mccann MD CHEMISTRY ORDERABLES Performing Organization Address City/[facility]/[place] [address] CERNER MILLENNIUM Lactic acid, plasma (06/16/2013 1:45 AM EST) P athologist Signature Lactate 0.8 0.5 - 2.2 CERNER mmol/L MILLENNIUM Specimen Anatomical Collection Method Collection Time Receive d Time (Source) Location / / Volume Laterality Blood specimen 06/16/2013 1:45 AM 013 2:02 (specimen) EST AM EST Resulting Agency Comment Spec In Lab Tammy Mccann MD CHEMISTRY ORDERABLES Performing Organization Address City/[facility]/[place] [address] CERNER MILLENNIUM (ABNORMAL) CMP [...] of Diabetes Mellitus, Position Statement from the [place] [employer]. ??Diabete s Care, Volume 33, [...] Organization Address City/State/[place] [address] CERNER MILLENNIUM (ABNORMAL) CBC [...] % MILLENNIUM MPV 9.3 9.0 - 12.0 [facility] Specimen Anatomical Collection Method Collection Time Receive d Time (Source) Location / / Volume Laterality Blood specimen 06/16/2013 1:45 AM 013 2:01 (specimen) EST AM EST Resulting Agency Comment Spec In Lab Tammy Mccann MD HEMATOLOGY ORDERABLES Performing Organization Address City/State/ZIP Code Phon e Number [place] [phone]OSPITAL LAB[address] [facility] BOSS [facility] Request for 2nd read CT abdomen [...] intrapelvic process. ??No diverticulitis or appendicitis. 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 No diverticulitis or appendicitis. 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 Hepatosplenomegaly. Tammy Mccann MD IMG OUTSIDE INTERPRETATION O RDERABLES POCT Glucose (06/16/2013 12:59 AM EST) P athologist Signature POC Glucose 173 60 - 199 CERNER mg/dL 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 , [...] Intravenous, EVERY 1 HOUR PRN, Starting on Tue06/16/13 at 0658, Until Tue06/19/13 at 0106, Pain, [...] 10:10 PM EST 50 mcg [address] from [facility] 06/17/2013 5:00 PM EST 125 mcg fentaNYL 50mcg/mL injection Bolus from [facility] 06/19/2013 1:06 AM EST 75 mcg 125 mcg, Intravenous, EVERY 5 MIN PRN, 4 doses, Starting on Tue06/17/13 at 1854, Until Lucie 06/21/13 at 1021, Pain, Administer if needed when RASS +3 or +4, Routine Bolus from [facility] 06/18/2013 11:47 PM EST 25 mcg fentaNYL 50mcg/mL injection Bolus from [facility] 06/20/2013 8:22 AM EST 75 mcg 25-75 mcg, Intravenous, EVERY 1 HOUR PRN, Starting on Tue06/19/13 at 0105, Until Lucie 06/21/13 at 1021, Pain, PRN pain scale greater than goal or pre-procedure, Routine Bolus from [facility] 06/19/2013 5:25 AM EST 75 mcg [address] [facility] 06/19/2013 3:00 AM EST 75 mcg fluticasone (FLONASE) 50 mcg/actuation Given 06/27/2013 8:55 AM EST 2 sprays nasal spray 2 spray 2 spray, Each Nare, DAILY, First dose on [facility] 06/16/13 at 0900, Until Discontinued, Routine Given 06/26/2013 9:21 AM EST 2 sprays Given 06/25/2013 8:27 AM EST 2 sprays folic acid (FOLVITE) tablet 1,000 mcg Given 06/22/2013 9:16 AM EST 1,000 mcg 1,000 mcg (1 mg), Oral, 2 TIMES DAILY, First dose on [facility] 06/16/13 at 0130, Until Discontinued, Routine Given [...] CHANGE BAG EVERY EVENING, First dose on [facility] 06/16/13 at 0730, Until Discontinued, Type 2 [...] EST 5 mg 1 dose, Starting on Lucie 06/21/13 at 0748, Until Lucie 06/21/13 at [...] 1 mg/mL injection 1 dose, Starting on 06/17/13 at 1621 , Until 06/17/13 at 1627, CHANTE BENNETT: cabinet override midazolam (VERSED) injection 2 mg Given 06/17/2013 4:43 PM EST 1 mg 2 mg, Intravenous, EVERY 10 MIN PRN, 2 doses, Starting on 06/17/13 at 1623, Until 06/17/13 at 1643, Anxiety, anxiety or ventilator dysynchrony, Administer If RASS remains +3 or +4 after fentaNYL, call provider for new sedation orders and administer midazolam., Routine Given 06/17/2013 4:27 PM EST 1 mg midazolam (VERSED) injection 2 mg Bolus from Bag 06/17/2013 8:55 PM EST 2 mg 2 mg, Intravenous, EVERY 10 MIN PRN, 2 doses, Starting on 06/17/13 at 1854, Until 06/17/13 at 2055, Anxiety, anxiety or ventilator dysynchrony, [...] 0653 , Until Tue06/16/13 at 2000, [facility]: jaylont override propofol (DIPRIVAN) Rate/Dose Change 06/17/2013 9:54 [...] at 10 mL/hr, Intravenous, CONTINUOUS, Starting on Tue06/18/13 at 1245, Until Lucie 06/21/13 at 1015 [...] PM EST Intravenous, ONCE, 1 dose, On Clifford 06/17/13 at 1815 sodium chloride 0.9% infusion [...] 15 g, Oral, ONCE, 1 dose, On Tue06/17/13 at 0215, Routine tacrolimus (PROGRAF) 1 mg/2 mL oral suspension Given 1 08/28/2012 9:02 AM EST 1 mg 1 [...] Oral, 2 TIMES DAILY, First dose on Tue06/16/13 at 0130, Until Discontinued, Routine Given 06/17/2013 [...] mcg/actuation nasal spray 2 s pray (CANCELED) 08 (Given - Provider: Shandra Eddy RN) 0921 [...] Ruth Wallace RN)1445 (Given - Provider: Shandra M Eddy, RN)2158 (Given - Provider: Ruth Wallace RN) 0643 (Given - Provider: Ruth Wallace RN)1321 (Given - Provider: Shandra Eddy RN)2120 (Given [...] Kim Sanchez RN)2120 (Given - Provider: Kim Sanchez, SHEILA) 0900 (Given - Provider: Shandra Eddy, SHEILA) 50 mg, Oral, 4 TIMES DAILY, First dose o n 06/25/13 at 0900, Until Discontinued, Take with Food, Routine insulin aspart (novoLOG) PEN injection 0-20 Units 0822 (Given - Provider: Shandra Eddy RN)1242 (Given - Provider: Shandra Eddy, SHEILA)1717 (Given - Provider: Shandra Eddy, SHEILA) 0908 (Given - Provider: Shandra Eddy RN)1215 (Given - Provider: Shandra Eddy, SHEILA)1700 (Given [...] Eddy RN)1445 (Given - Provider: Shandra Eddy, SHEILA)204 (Given - Provider: Ruth Wallace RN) 0916 (Given - Provider: Shandra Eddy RN)155 (Given - Provider: Kim Sanchez, SHEILA)212 (Given - Provider: Kim Sanchez, HSEILA) 0857 (Given - Provider: Shandra Eddy RN) [...] mg (CANCELED) 0939 (Given - Provider: Shandra Eddy RN)2044 (Given - Provider: Ruth Wallace, SHEILA) 09 (Given - Provider: Shandra Eddy RN)2120 (Given - Provider: Kim Sanchez, RN) 09 (Given - Provider: Shandra Eddy, SHEILA) 500 mg, Oral, 2 TIMES DAILY, First dose on Tue06/24/13 at 1000, Until Discontinued, Routine polyethylene glycol (MIRALAX) packet 17 g 0829 (Not Gi fan - Provider: Shandra Eddy [...] mEq (COMPLETED) 1154 (Given - Provider: Shandra Eddy RN) 40 mEq, Oral, ONCE, 1 dose, Tue06/27/13 at 1145, 20 mEq tablet may be dissolved in water for administration, Routine propranolol (INDERAL) tablet 80 mg 0032 (Given - Provi urszula: Ruth Wallace RN)0636 (Given - Provider: Ruth Wallace, SHEILA)1248 (Given - Provider: Shandra Eddy RN)1843 (Given - Provider: Shandra Eddy RN) 0021 (Given - Provider: Ruth Wallace, SHEILA)0641 (Not Given - Provider: Ruth Wallace RN - Reason: Order parameters not met)1218 (Given - Provider: Shandra Eddy RN)1704 (Given - Provider: Kim Sanchez, SHEIAL) 0000 (Given - Provider: Jael Morin, RN)0600 (Given - Provider: Jael Morin, RN)1153 (Given [...] SHEILA)2044 (Given - Provider: Ruth Wallace, SHEILA) 09 (Given - Provider: Shandra Eddy, RN)212 (Given - Provider: Kim Sanchez, SHEILA) [...] Routine documented in this encounter Care Teams Player Development Manager Relationship Specialty Start Date End Date Dc Ibanez MD PCP - General 04/02/13 04/01/14 ANAMARIA [address] [place] [address] documented as of this encounter
--- OUTSIDE RECORDS SUMMARY | 2022-06-16 12:32 | XMS_ITS | Encounter Summary ---
:1955 Author Organization [facility] [place] [address] Care Team Providers Name Role Phone Dc Ibanez MD Primary Care Provider Encounter Details Date Type Department Care Team Description 06/20/2013 Orders Only Solid Organ Transplant at Angel Evangelista MD [facility] Giovana tyler [place] [address] [place] [address] [phone] (Wo rk) Social History Tobacco Use Types [...] Rojas MD [facility] Neurology [place], [place] [phone] (Wo rk) 06/29/2022 Appointment Cardiology Violetta Sanford M D [address] [place], [place] [address] (Wo rk) 06/30/2022 Infusion Hematology and Oncology 07/14/2022 Infusion Hematology and Oncology 07/28/2022 Infusion Hematology and Oncology 08/11/2022 Infusion Hematology and Oncology 08/16/2022 Office Visit Audiology Mindy Moody AUD [facility] AUDIOLOGY DEPT [place], [place] [address] (Wo rk) 11/04/2022 Office Visit Rheumatology Dante Freedman PA [facility] RHEUMATOLOGY [place], [place] [address] (Wo rk) documented as of [...] EST) athologist Signature Vanc Trough 21.5 mg/L [facility] Beeline Comment: Therapeutic range for complicated infect ions [...] Organization Address City/State/[place] [address] CERNER MILLENNIUM Gold Tube HOLD (06/20/2013 10:35 AM EST) athologist Signature Gold Hold Sample in [facility] Specimen Anatomical Collection Method Collection Time Receive d Time (Source) Location / / Volume Laterality Blood specimen 06/20/2013 10:35 3 (specimen) AM EST 10:44 AM EST Angel Mccann MD CHEMISTRY ORDERABLES Performing Organization Address City/State/[place] [address] [facility] documented in this encounter Visit Diagnoses Not on filedocumented in this encounter Care Teams Director Of Teaching And Learning Relationship Specialty Start Date End Date Dc Ibanez MD PCP - General 04/02/13 04/01/14 ANAMARIA [address] [place] [address] documented as of this encounter
--- OUTSIDE RECORDS SUMMARY | 2022-06-16 12:32 | XMS_ITS | Encounter Summary ---
:1955 Author Organization [facility] [place] [address] Care Team Providers Name Role Phone Dc Ibanez MD Primary Care Provider Encounter Details Date Type Department Care Team Description 06/16/2013 Anesthesia Event Main Operating Room Jesús Rodriguez MD [facility] [place] [address] [facility] Devin Gonzalez MD [facility] [place] [address] [facility] [place] [address] Anesthesia Record Procedure Summary Procedure Name Responsible Anesthesia Start Anesthesia Stop Anesthesiologist Time Time LAPAROSCOPIC Jesús Robbins MD 06/16/13 0426 06/16/13 064 6 APPENDECTOMY (WRVU 9.45) (Abdomen) Events Date Time Event Comment 06/16/2013 0426 [...] Martha Riley, Nicky Isaac, catheter; 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 [...] and mother whom consented to blood products. [facility]. Assessment: documented in this encounter Miscellaneous Notes [...] Rojas MD [facility] Neurology [place], [place] [phone] (Wo rk) 06/29/2022 Appointment Cardiology Violetta Sanford M D [address] [address] (Wo rk) 06/30/2022 Infusion Hematology and Oncology 07/14/2022 Infusion Hematology and Oncology 07/28/2022 Infusion Hematology and Oncology 08/11/2022 Infusion Hematology and Oncology 08/16/2022 Office Visit Audiology Mindy Moody AUD [facility] AUDIOLOGY DEPT [place], [place] [address] (Wo rk) 11/04/2022 Office Visit Rheumatology Dante Freedman PA [facility] RHEUMATOLOGY [place], [place] [address] (Wo rk) documented as of [...] Intra-op documented in this encounter Care Teams Die Cutting Machine Operator Relationship Specialty Start Date End Date Dc Ibanez MD PCP - General 04/02/13 04/01/14 ANAMARIA [address] [place] [address] documented as of this encounter
--- OUTSIDE RECORDS SUMMARY | 2022-06-16 12:32 | XMS_ITS | Encounter Summary ---
:1955 Author Organization [facility] [place] [address] Care Team Providers Name Role Phone Dc Ibanez MD Primary Care Provider Encounter Details Date Type Department Care Team Description 06/20/2013 External Results XRay at [facility] Provider, [address] [place] [address] Social History Tobacco Use Types Packs/Day [...] Rojas MD [facility] Neurology [place], [place] [phone] (Wo rk) 06/29/2022 Appointment Cardiology Violetta Sanford M D [address] [place] [address] (Oscar escobedo) 06/30/2022 Infusion Hematology and Oncology 07/14/2022 Infusion Hematology and Oncology 07/28/2022 Infusion Hematology and Oncology 08/11/2022 Infusion Hematology and Oncology 08/16/2022 Office Visit Audiology Mindy Moody AUD [facility] AUDIOLOGY DEPT [place], [place] [address] (Wo rk) 11/04/2022 Office Visit Rheumatology Dante Freedman PA [facility] RHEUMATOLOGY [place], [place] [address] (Wo rk) documented as of [...] filedocumented in this encounter Care Teams Electrical Timing Device Calibrator Relationship Specialty Start Date End Date Dc Ibanez MD PCP - General 04/02/13 04/01/14 [address] [place] [address] documented as of this encounter
--- OUTSIDE RECORDS SUMMARY | 2022-06-16 12:33 | XMS_ITS | Encounter Summary ---
:1955 Author Organization [facility] [place] [address] Care Team Providers Name Role Phone Dc Ibanez MD Primary Care Provider Encounter Details Date Type Department Care Team Description 06/16/2013 Surgery Main Operating Room Tammy Mccann LAP AROSCOPIC [facility] APPENDECTOMY (WRVU 9.45) [facility] DR [place] [address] [place] [address] [phone] (Wo rk) Social History Tobacco Use Types [...] may be used if needed and are smhr-elr-koacrvj (OTC) medications available at most [facility] downtown. Prunes or prune juice, taken daily, can [...] 2 weeks. Your surgeon may not be Boilers Inspector, especially during the night or on weekends, [...] (NOVOLOG) Inject 3-12 Units 3 mL 0 /10/201211/07/2013 pen injection subcutaneously every 4 hours. insulin [...] diabetes mellitus with neurological manifestations, uncontrolled(250.62) Insulin Baskin, by Other route. 1 1 Box 11 04/02/2013 0 11/07/2013 Disposable, (BD INSULIN box = 100 insulin PEN NEEDLE UF SHORT) 31 PEN needles. X 5 NdleIndications: Diabetes mellitus, Type II or unspecified [...] Combo Route) route 2 mL 31 x 5/16 times daily. SyrgIndications: Type II or unspecified [...] 06/27/2013 12:00 PM EST Patient discharged to [facility] in [place], [place]. Patient has a triple lumen PICC [...] [facility]. [facility] called to [facility]. Char Morales MD - 06/27/2013 10:16 [...] and flagyl per ID Char Mclaughlin Pager -[phone] Sylvia Herman RN - 06/27/2013 9:01 AM EST Patient Name: Leroy Dailey : 1955 Patient has been offered a swing bed at [facility] for today. Please call Dr. Sylvia Sommers at [phone] for report. Please call Nursing Report to , ask for rotary shear operator. Info to accompany patient: Copies of Medication Administration Records and IV sheets for past two weeks. Rd arranging ambulance pickup for noon. Ambulance will need: Medicare ambulance form completed and signed (MD or CRC) Copy of patient demographics [place] Out of Hospital DNR/DNI order, if active Patient will be discharged to: [facility] [address] [place] [address] Plan: Equipment Oiler will be available to the patient and CRC for further assistance. Sylvia Remy RN Pager [phone] Alicja Calloway OTA - 06/26/2013 4:08 PM EST Occupational Therapy Treatment Note Visit #: 2 Patient Dx: Leroy Dailey is a 58 y.o. male patient of Ev Bennett,*, admitted on06/16/2013 in transfer from [facility] for abdominal pain and fever. He underwent 06/16/13 LAPAROSCOPIC APPENDECTOMY. He had some post op issues with hypotension. PICC was placed in [facility] on 06/16/13; he is on Vanco. He has had issues with fevers and tremors; he was seen by Neuro and he has baseline tremors. He was extubated on 06/20/13, has had and altered mental status, and was transferred to [facility] on 06/22/13. Precautions/Special Considerations: consuelo AKA, fall [...] functional activity. 2. Pt will transfer to [facility] with one person assist and appropriate assistive [...] 10 minutes for SCM x 1 Pager: [phone] JARRET MARTINEZ Occupational Therapy Rehabilitation Department Ryland Wilkins PT - 06/26/2013 3:27 PM EST Physical Therapy Treatment Note Visit # 3 Patient Dx: Pt. is a 58 y.o. male admitted on 06/16/2013 by Ev Bennett, in transferfrom OSH for abdominal pain and fever. He underwent 06/16/13 LAPAROSCOPIC APPENDECTOMY. He had some post op issues with hypotension. PICC was placed in [facility] on 06/16/13; he is on Vanco. He has had issues with fevers and tremors; he was seen by Neuro and he has baseline tremors. He was extubated on 06/20/13, has had and altered mental status, and was transferred to [facility] on 06/22/13. Precautions: consuelo. BKA with prosthesis, [...] interventions: 30 minutes functional activity training Pager: [phone] Ryland Wilkins, PT Physical Therapy Rehabilitation Department Mer Merchant RN - 06/26/2013 3:04 PM EST Care Management/ CRC Pager# [phone]/ Discharge planning S: Going to [facility] (swing bed level) tomorrow would be perfect. Thanks cox monett for your help. An ambulance pick-up at about 11 would be great. O: Discussion with Equipment Oiler Sylvia Remy. No bed offer at [facility] or [facility] today. [facility] has offered swing bed for patient transfer tomorrow. Message to Dr. Weber about discharge plan. A/P: Mobile Home Laborer will follow up in am for completion of discharge planning. Sylvia Herman RN - 06/26/2013 2:43 PM EST [facility] can offer a bed to pt on Tuesday but not today. [facility] unable to get an answer from [...] and flagyl per ID Char Mclaughlin Pager -[phone] Transplant Nephrology Staff: Patient seen and discussed with Dr. Mclaughlin and I agree with his note and make the following additional comments: I performed my own history and exam. The conclusions and discussion were formulated together and reflect my input. Patient is feeling better and anxious for rehab in [facility]. He was treated with lasix for stump [...] (251 lb 8.7 oz), SpO2 98.00%. Alejo Garnett MD - 06/26/2013 9:15 AM EST Transplant [...] 2:47 PM EST Care Management/ CRC pager# [phone]/ Transfer note and Discharge planning S: I do think that I need to get stronger before I go home with my mother. I am thinking that I would do best at [facility] (swing bed), but if there are no openings there you can try the [facility]. I do feel that I will need to go by ambulance. I am not able to use my prostheses due to the swelling in my legs. O: Met with patient, patient's mother, and patient's friend Linda this afternoon. Patient lives with his mother in [facility]. Patient has Medicare (Parts A,B and D). Patient has submitted [place] Medicaid application, but unclear when this might become effective. No Advance Directives on file here at [facility]. Patient has history of Type 2 DM. S/p bilateral below knee amputations (has prostheses). S/p donor kidney transplant 2007. Patient is S/P laparoscopic appendectomy on 06/16. Extubated on 06/20. Patient transferred to [facility] room 325 on 06/22. Per Dr. Weber, [...] qday. PT/OT. Message to Sylvia Remy RN Equipment Oiler about patient's request for referrals. A/P: I [...] issues with hypotension. PICC was placed in [facility] on 06/16/13; he is on Vanco. He has had issues with fevers and tremors; he was seen by Neuro and he has baseline tremors. He was extubated on 06/20/13, has had and altered mental status, and was transferred to [facility] on 06/22/13. Precautions: consuelo. BKA with prosthesis, [...] interventions: 45 minutes functional activity training Pager: [phone] Ryland Wilkins PT Physical Therapy Rehabilitation Department [...] 4 grams of carb Mechanical soft diet 60/ Recent Glucose Levels Recent Labs Basename 06/25/13 [...] with RN and/or primary team, TPN team, nursing associate and/or diabetes nurse educator, etc). JACKIE VARGAS APRN 06/25/2013 12:27 PM Patricia Farah, HEALTHCARE NETWORK CONSULTANT - 06/25/2013 9:08 AM EST Speech-Language Pathology [...] seen for swallow f/u. Pt upgraded to [facility] soft, regular liquids yesterday. Goals: Pt will [...] with plan of treatment. Patricia Farah MA, [facility]-HEALTHCARE NETWORK CONSULTANT Inpatient Rehabilitation Medicine pager:# [phone] Alejo Mandujano MD - 06/25/2013 8:52 AM [...] wants to go to rehab an prefers [facility] swing bed TRANSPLANT HISTORY [...] and flagyl per ID Char Mclaughlin Pager -[phone] I examined the patient, reviewed all of the above findings and assessment of Dr. Mclaughlin and formulated the recommendations which accurately reflect mine. Monico Clarke RN - 06/24/2013 6:14 PM EST 3 West Telemetry Note Subjective: Patient resting comfortably. [...] issues with hypotension. PICC was placed in [facility] on 06/16/13; he is on Vanco. He has had issues with fevers and tremors; he was seen by Neuro and he has baseline tremors. He was extubated on 06/20/13, has had and altered mental status, and was transferred to [facility] on 06/22/13. Precautions:Considerations: consuelo. BKA with prosthesis, [...] 10 mins this late afternoon/early evening on [facility] for ther-ex and pt education; Girlfriend, Linda, [...] patient: 10 minutes Total timed interventions: 10 [id number] Pager: [phone] LELE FARLEY, PT Physical Therapy Rehabilitation Department Hedy Arrington SLP - 06/24/2013 3:23 PM EST Speech-Language Pathology Progress Note Total Treatment Time: 28 min. swallow tx Total Timed Code Treatment: 0 min. S: ?? Pt denies pain at this time. ?? Pt w/ increased alertness compared to previous HEALTHCARE NETWORK CONSULTANT visit. Tolerating full liquid diet well per [...] PO intake. Education provided re: role of HEALTHCARE NETWORK CONSULTANT and likely progression to numerous family present throughout tx session. Communicated recommendations to RN and MD. A: Dx: Positive outward s/s of Oropharyngeal Dysphagia secondary to mildly delayed pharyngeal trigger and effortful clearance of likely pharyngeal residue. Pt appropriate to upgrade to mechanical soft diet w/thin liquids. Primary HEALTHCARE NETWORK CONSULTANT to resume care tomorrow (Patricia Farah, #[phone]) Recommendations: Diet: mechanical soft diet, thin liquids Follow standard Aspiration Precautions (Feed only when alert; Sit upright for all PO intake; Small, single bites and sips; Remain upright for 10-15 minutes after PO intake) P: Continue Speech Pathology treatment / monitoring 3-5x/week while hospitalized. Pt./Family are in agreement with plan of treatment. Hedy Arrington MS, [facility]-HEALTHCARE NETWORK CONSULTANT Inpatient Rehabilitation Medicine pager:# [phone] Greg Rich - 06/24/2013 1:36 PM EST Traffic Maintenance Supervisor Encounter Note Patient Name: Leroy Dailey : [id number] MR#: [id number] Admit Date: 06/16/2013 12:43 AM Hospital Day 8 days Narrative:Visited to introduce and assess acceptance of Traffic Maintenance Supervisor services. Assessment:Patient coping positively with stresses of illness/hospitalization at this time. Pt says that he is feeling better and pt three family members were. Pt is hoping good health and having good time with family. Intervention and Outcome: pt has family care and support. Provided spiritual and emotional support. Traffic Maintenance Supervisor services accepted. Conversation to build trusting relationship. [...] - Took 490 po of liquid diet, HEALTHCARE NETWORK CONSULTANT revisit pending this AM - CMP not [...] NGT out yesterday, will be seen by HEALTHCARE NETWORK CONSULTANT today. Boost shakes written for TID. Prograf [...] NTD SQH DVT prophylaxis GI: NPO, repeat HEALTHCARE NETWORK CONSULTANT eval Boost shakes FEN: Continue IVF @ 75NS - until full diet ENDO: Insulin Regimen: levamir may need to increase as higher po, currently controlled Other none Immuno ID: Prophylaxis: Treatment: Prograf recheck of level, 1/1 today recheck tuesday Cellcept 500 po BID [...] difficulty swallowing, will continue to monitor. Ev Salas MD - 06/23/2013 9:02 AM EST Transplant [...] NTD SQH DVT prophylaxis GI: NPO, repeat HEALTHCARE NETWORK CONSULTANT eval Tube feeds @goal rate 54 FEN: [...] within reach. Will continue to monitor. Dustin Haywood MD - 06/22/2013 10:43 AM EST INFECTIOUS [...] the patient. Dustin Haywood MD Gurvinder-Patricia Hurst, HEALTHCARE NETWORK CONSULTANT - 06/22/2013 10:24 AM EST Speech-Language Pathology [...] follow 3-5x/week while hospitalized. Will ask Tuesday HEALTHCARE NETWORK CONSULTANT to check in on pt, see if [...] any questions or concerns. Patricia Farah MA [facility]-HEALTHCARE NETWORK CONSULTANT Inpatient Rehabilitation Medicine Pager:#[phone] Ev Buckner MD - 06/22/2013 8:01 AM [...] NTD SQH DVT prophylaxis GI: NPO, failed HEALTHCARE NETWORK CONSULTANT eval Tube feeds @40, goal rate 54 [...] UA Negative Appearance UA Clear Clear Spec [place] UA 1.011 1.002 - 1.030 Color UA [...] specified as below. Manav Smiley MD Mulugeta Weiss MD - 06/21/2013 11:12 AM EST STAFF [...] hospitalization is infection. MULUGETA CAMEJO MD 06/21/2013 vE Buckner MD - 06/21/2013 6:07 AM EST [...] In: 2576 [I.V.:2481; NG/GT:70; IV Piggyback:25] Out: 84506 [Urine:9850; Emesis/NG output:450] General : NAD, awake [...] NTD SQH DVT prophylaxis GI: NPO, failed HEALTHCARE NETWORK CONSULTANT eval Keep NGT FEN: Continue IVF Continue [...] Shell Motta - 06/20/2013 6:25 PM EST Lindsey Encounter Note Patient Name: Leroy Dailey : [id number] MR#: [id number] Admit Date: 06/16/2013 12:43 AM Hospital Day 4 days Narrative: Patient recently had intubation equipment removed and family present were attempting to assist in his regaining consciousness. This flex o writer operator spoke with family regarding patient's accident and hopes for recovery. Present were patients partner, mother and two close friends. Assessment: Family appears to be dealing with current crisis in a positive manner. Intervention and Outcome: Offered supportive listening. Follow-up: None requested. Time in Direct Care: 20 minutes Shell Motta 06/20/2013 Patricia Kelsey HEALTHCARE NETWORK CONSULTANT - 06/20/2013 3:27 PM EST Speech-Language Pathology [...] / progression. Thank you. Patricia Farah MA [facility]-HEALTHCARE NETWORK CONSULTANT Inpatient Rehabilitation Medicine pager:# [phone] Mulugeta Weiss MD - 06/20/2013 2:58 PM [...] 35 minutes MULUGETA CAMEJO MD 06/20/2013 Ev Camacho RCP - 06/20/2013 2:45 PM EST Extubation Note Order Verified? (yes) Pt alert & oriented? (moderately) Pt able to follow commands? (yes) Difficult Airway? (no) Extubation Time: 14:35 Stridor (no) If yes, Epi given? ( ) Cough (yes) Able to phonate (yes) Lung sounds: coarse bilat, watching secretion clearance closely. O2 device: NC 2 L/min RR: 25 HR: 99 SPO2: 100 Eden Cantrell, RD - 06/20/2013 1:30 PM EST Nutrition [...] APPENDECTOMY performed by Tammy Mccann MD at [facility] MAIN OR Weight: 114.1 kg - [...] PHOS 3.6 06/17/2013 Nutrition needs assessed at: 8232-0034 calories (based on IBW) ~80 gm protein [...] -- 1.32 -- 1.53* 1.57* Recent Labs Basename 06/20/13 0500 06/19/13 0415 06/18/13 1820 06/18/13 [...] and meopenem Pt febrile Char Mclaughlin Pager -[phone] I examined the patient, reviewed all of [...] CONSULTATION: immunosuppressant management referred by Dr. Mccann [facility]: ESRD secondary to presumed diabetic nephropathy [...] cr of 1.6; once MAP> 80 start divasileing, d/w ICU team. #2 Immunosuppression cellcept 500 [...] and meopenem Pt febrile Char Mclaughlin Pager -[phone] I examined the patient, reviewed all of [...] trend of increasing etCO2 to 50. ABG 7.. Patient placed back on SIMV mode. Noel [...] RN - 06/18/2013 10:13 AM EST CLINICAL JEWEL BEARING FACER (CRC) Office of Care Management Yohana Ballard RN, CRC Phone [phone] Pager # [phone] INITIAL ASSESSMENT: Reviewed record; interviewed pt's mother, [...] had inpatient rehab following last BKA at [facility] swing bed. Mother states he didn't like it, but will appreciate that he must be independent enough to safely returnhome, as he is a large man, and mother is a small woman, with limited ability to physically help him. INSURANCE COVERAGE/FINANCIAL ISSUES: Medicare AB and prescription coverage. Pt's mother states that pt has submitted an application to [place] Medicaid, but has not yet heard back. ADVANCE DIRECTIVES: None scanned. Mother and girlfriend state pt does not have these. REHAB TEAM CONSULTS: Will need PT when clinically appropriate for mobilization, assessment of discharge planning needs. ANESTHESIOLOGY FACULTY REFERRAL: When pt is awake and alert, will ask ANESTHESIOLOGY FACULTY to check in with pt regarding willingness [...] the unit excluding procedures: 30 minutes GENTRY A BALL, MD 06/17/2013 Tammy Mccann MD - 06/17/2013 [...] %] I/O last 3 completed shifts: In: 27809 [I.V.:25062; NG/GT:120] Out: 2955 [Urine:2855; Blood:100] I/O this [...] 35 minutes GENTRY LONG MD 06/16/2013 Karyn Mae RN - 06/16/2013 1:32 AM EST Nursing Progress Note Shift Events: 0100 - Pt received via stretcher from [facility]. Pt aaox4. PIV access leaking, IV team notified for IV placement. MD team notified of pt arrival. Pt states pain 1/10 to RLQ, pain increased upon palpation slightly. 0200 - Labs sent as ordered 0300 - K 6.9, Dr. Segovia notified. Orders received. 0315 - Pt transported to [facility] via stretcher for PA/LAT. 0400 - Plan [...] Note ID: 58 y.o. Male presents to [facility] with acute abdominal pain, now s/p laparoscopic [...] at [facility] MAIN OR Prior To Admission Medications: [...] as needed. 64 g 11 ??? Insulin Baskin, Disposable, (BD INSULIN PEN NEEDLE UF SHORT) [...] 31 x 5/16 Syrg 1 Device by [facility].(Non-Drug; Combo Route) route 2 times daily. 200 [...] OSH Assessment: 58 y.o. Male presents to [facility] with acute abdominal pain, now s/p laparoscopic [...] Admission H&P Patient Name: Leroy Dailey : [id number] MR#: [id number] 06/16/2013 Hospital Day 0 days ID: 58 [...] at [facility] MAIN OR Allergies: Allergies Allergen Reactions [...] as needed. 64 g 11 ??? Insulin Baskin, Disposable, (BD INSULIN PEN NEEDLE UF SHORT) [...] 31 x 5/16 Syrg 1 Device by [facility].(Non-Drug; Combo Route) route 2 times daily. 200 [...] 06/28/2013 1:29 PM ESTAssociated Order(s): SCAN DOC: TECHNOLOGIES DIVISION CHAIR Provider, Scanning - 06/28/2013 1:29 PM ESTAssociated Order(s): SCAN DOC: TECHNOLOGIES DIVISION CHAIR Elizabeth Arguelles APRN - 06/18/2013 9:51 AM [...] to the planned procedure. Hand Hygiene: The community development manager did perform hand hygiene prior to line insertion. Catheter type: PICC Lot number: [id number] Procedure Technique: Skin was prepped with chlorhexidine. [...] needed. Qty: 64 g Refills: 11 Insulin Baskin, Disposable, (BD INSULIN PEN NEEDLE UF SHORT) [...] 5/16 Syrg 1 Device 1 Device by [facility].(Non-Drug; Combo Route) route 2 times daily. Qty: [...] may be used if needed and are dgug-lwg-jwehmzi (OTC) medications available at most [facility]. Prunes or prune juice, taken daily, can also be helpful for constipation treatment or pre vention and are available at most [employer]. Driving Restrictions*: - No driving if you [...] 2 weeks. Your surgeon may not be Boilers Inspector, especially during the night or on weekends, so be ready to describe yourself and your surgery when you call. Future Appointments and Orders Future Appointments: Provider: Department: Dept Phone: Center: 08/06/2013 1:00 PM Donell Hernandez MD Endocrinology [phone] [facility] Joint Appt Endo Lab Resource Endocrinology [phone] [facility] Electronically Signed by: EDA WEBER MD 06/26/2013 Consult Note - Carlos Sr RN - 06/25/2013 4:15 PM EST Certified Wound Care Nurse Note Situation: Follow up with director of search engine optimization for Leroy Dailey r/t injury at left nare; patient has been transferred from ICU to . Background: eDH notes reviewed for history, admitting diagnosis and active problem list. Assessment: Telephone conversation with director of search engine optimization caring for patient r/t wound at left nare, reviewedCWCN plan of care with director of search engine optimization. Recommendations: Follow plan of care as outlined below. Wound Care Recommendations: Left nares 1. Cleanse area with normal saline of dermal wound cleanser 2. Apply Aloe Creston protective ointment to area BID and prn [...] gently after each incontinence episode with Aloe Creston Personal Cleanser. Apply Protective Ointment to perineal area bid and prn. Assess skin for fungal infections, notify provider. Activity: Implement reminder system for repositioning every two hours while in bed Nutrition: Evaluate nutrition/hydration status. Follow data analysis assistant recommendations Mobility: Turn and reposition every 2 hours and document in ED-H. Place a pillow above and below sacral area to off load pressure to the sacrum Offload pressure from heels by placing pillows lengthwise beneath legs while in bed. [facility] AIR bed Use a single quilted chux [...] or equal to 30 degrees. Use Aloe Creston Skin Conditioner #2 after baths for extra dry skin. Follow-up: Will plan to follow patient on Tuesday, 2012. Discussed plan with: MICHELLE Devi Please contact CARLOS SR RN at [phone] or pager [phone] or the wound care team at [phone] or pager [phone] with skin and wound care concerns or [...] admitted on 06/16/2013 in transfer from [facility] for abdominal pain and fever. He underwent 06/16/13 LAPAROSCOPIC APPENDECTOMY. He had some post op issues with hypotension. PICC was placed in [facility] on 06/16/13; he is on Vanco. He has had issues with fevers and tremors; he was seen by Neuro and he has baseline tremors. He was extubated on 06/20/13, has had and altered mental status, and was transferred to [facility] on06/22/13. No past medical history on file. 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 Mother states he didn't like it, but will appreciate that he must be independent enough to safely returnhome, as he is a large man, and mother is a small woman, with limited ability to physically help him..... - He reports he can walk 3 minutes with consuelo. Prosthesis and then tires. Uses a cane in the community, goes to [facility] with [facility] cane as well. Has a trapeze at home. Precautions/Special Considerations: consuelo. BKA with prosthesis, NG tube, IV, telemetry, 330# without prosthesis, chang catheter, PICC line Subjective: Pt reports he feels pretty good today. Objective: Pt seen for evaluation today. Pain: 2/10 at rest Vital Signs: Sp02: 95 HR: 67 BP: 145/63 - per POSTAL MAIL CARRIER at 10:34 am Mental Status: affect appropriate [...] 0 minutes TAMMY WYMAN, PT 06/23/2013 Pager: [phone] Physical Therapy Rehabilitation Department Consult Note - [...] of dermal wound cleanser 2. Apply Aloe Creston protective ointment to area BID and prn [...] gently after each incontinence episode with Aloe Crest[place] Personal Cleanser. Apply Protective Ointment to perineal area bid and prn. Assess skin for fungal infections, notify provider. Activity: Implement reminder system for repositioning every two hours while in bed Nutrition: Evaluate nutrition/hydration status. Follow data analysis assistant recommendations Mobility: Turn and reposition every 2 [...] or equal to 30 degrees. Use Aloe Creston Skin Conditioner #2 after baths for extra dry skin. Discussed plan with: : Lane Nowak RN: Taina Patel Please contact MILLIE MAZA RN on pager [phone] or the wound care team at [phone] or pager [phone] with skin and wound care concerns or [...] PM EST Clinical Pharmacist Note-Vanc Leroy Dailey [id number] 1955 Leroy Dailey is a 58 y.o. [...] have. Alternately, during off-hours you may call [phone] to contact a pharmacist. Patient has been transferred off ICU service and pharmacy-managed vancomycin service will sign-off. We will continue to monitor vancomycin therapy for this patient and any changes to the vancomycin regimen will need to be made by the primary team. SHABANA COLINDRES, ROSANNED PH [phone] Plan of Care - John North RN [...] PM EST Clinical Pharmacist Note-Vanc Leroy Dailey [id number] 1955 Leroy Dailey is a 58 y.o. [...] have. Alternately, during off-hours you may call [phone] to contact a pharmacist. ALDA KIRBY PHARMD Pager [phone] Plan of Care - Marissa Nuñez RN [...] DM, diabetic nephropathy s/p renal transplant[facility] with fevers, chills and RLQ tenderness. Exploratory [...] open eyes on command inconsistently Unable to offset press operator with intention 2-3 Hz tremor noted upon [...] Fernandez DO Resident in Neurology Team Pager [phone] Neurology (Staff) Addendum I saw and evaluated [...] PM EST Clinical Pharmacist Note-Vanc Leroy Dailey [id number] 1955 Leroy Dailey is a 58 y.o. [...] have. Alternately, during off-hours you may call [phone] to contact a pharmacist. ALDA KIRBY PHARMD Pager [phone] Miscellaneous - Provider, Kody - 06/18/2013 2:57 [...] the [facility]. After being admitted to the [facility] he underwent lap appendectomy and is in [...] APPENDECTOMY performed by Tammy Mccann MD at [facility] MAIN OR FH: No family history [...] on vanc and meopenem Char Mclaughlin Pager [phone] I examined the patient, reviewed all of [...] CTX, Flagyl, and Vanco and transferred to [facility] where he was noted to have progressive [...] intrapelvic process. No diverticulitis or appendicitis. Atrophic [place] kidneys with unremarkable appearing transplanted kidney seen [...] regarding treatment of infection. Nicky Small MD [employer] Director Page [phone] Consult Note - Katherine Landeros Jr., [facility] - 06/17/2013 7:34 AM EST Clinical Pharmacist Note-Vanc Leroy Dailey [id number] 1955 Leroy Dailey is a 58 y.o. [...] have. Alternately, during off-hours you may call [phone] to contact a pharmacist. KATHERINE LANDEROS JR [facility], [facility] P. [phone] Plan of Care - Melly Yusuf RN [...] Mccann MD - 06/16/2013 6:24 PM EST [facility] Operative Note Patient Name: Leroy Dailey : [id number] MR#: [id number] Case Date: 06/16/2013 Surgeon: Surgeon(s) and Role: [...] elevated white count. He was transferred to [facility] for further evaluation. On presentation, he [...] complications. Consult Note - Katherine Landeros Jr., [facility] - 06/16/2013 7:54 AM EST Clinical Pharmacist Note-Vanc Leroy Dailey [id number] 1955 Leroy Dailey is a 58 y.o. [...] have. Alternately, during off-hours you may call [phone] to contact a pharmacist. KATHERINE LANDEROS JR [facility], [facility] P. [phone] Brief Op Note - Aria Gray - 06/16/2013 6:10 AM EST Brief Operative Note Patient Name: Leroy Dailey : [id number] MR#: [id number] Case Date: 06/16/2013 Surgeon: Surgeon(s) and Role: [...] 06/21/2022 Office Visit Neurology Tyler Rojas MD [facility] Medical [facility] Neurology [place], [place] [phone] (Oscar escobedo) 06/29/2022 Appointment Cardiology Violetta Sanford M D [address] [place] [address] (Oscar escobedo) 06/30/2022 Infusion Hematology and Oncology 07/14/2022 Infusion Hematology and Oncology 07/28/2022 Infusion Hematology and Oncology 08/11/2022 Infusion Hematology and Oncology 08/16/2022 Office Visit Audiology Mindy Moody [facility] AUDIOLOGY [place], [place] [address] (Wo rk) 11/04/2022 Office Visit Rheumatology Dante Freedman [facility] RHEUMATOLOGY [place], [place] [address] (Wo rk) documented as of this encounter Procedures Procedure Name Priority Date/Time Associated Diagnosis Comme nts TECHNOLOGIES DIVISION CHAIR SCAN 06/28/2013 1:29 Resu lts for this PM EST procedure are i n the results section. TECHNOLOGIES DIVISION CHAIR SCAN 06/28/2013 1:29 Resu lts for this [...] section. TYPE AND SCREEN Routine 06/22/2013 4:00 ([facility]/CARLA) AM EST BASIC METABOLIC PANEL Routine 06/22/2013 [...] section. TYPE AND SCREEN Routine 06/16/2013 1:45 ([facility]) AM EST PHOSPHORUS Routine 06/16/2013 1:45 Results [...] documented in this encounter Results SCAN DOC: TECHNOLOGIES DIVISION CHAIR (06/28/2013 1:29 PM EST) Anatomical Region Laterality Modality Other Narrative 06/28/2013 1:34 PM EST Procedure Note Provider, Scanning - 06/28/2013 1:29 PM EST Scanning Provider MEDIA MGR SCAN EXT ORDR/RSLT SCAN DOC: TECHNOLOGIES DIVISION CHAIR (06/28/2013 1:29 PM EST) Anatomical Region Laterality Modality Other Narrative 06/28/2013 1:34 PM EST Procedure Note Provider, Scanning - 06/28/2013 1:29 PM EST Scanning Provider MEDIA MGR SCAN EXT ORDR/RSLT POCT Glucose (06/27/2013 11:41 AM EST) P athologist Signature POC Glucose 166 60 - 199 CERNER mg/dL [facility] Comment: Supplemental ranges: <110 mg/dL before meals <200 mg/dL all other times of the day Specimen Anatomical Collection Method Collection Time Receive d Time (Source) Location / / Volume Laterality Blood specimen 06/27/2013 11:41 3 (specimen) AM EST 11:41 AM EST Tammy Mccann MD POINT OF CARE TEST ORDERABLE S Performing Organization Address City/State/ZIP Code Phon e Number [address] CERNER MILLENNIUM POCT [...] Organization Address City/State/[place] [address] CERNER MILLENNIUM Differential, Automated [...] Organization Address City/State/ZIP Code Phon e Number [place] [phone] CERNER MILLENNIUM (ABNORMAL) CBC [...] Address City/State/ZIP Code Phon e Number [address] CERNER MILLENNIUM POCT [...] CARE TEST ORDERABLE S Performing Organization Address City/[facility]/ZIP Code Phon e Number [address] CERNER MILLENNIUM POCT [...] Organization Address City/State/[place] [address] CERNER MILLENNIUM POCT Glucose [...] CARE TEST ORDERABLE S Performing Organization Address City/[facility]/[place] [address] CERNER MILLENNIUM POCT Glucose [...] CARE TEST ORDERABLE S Performing Organization Address City/[facility]/ZIP Code Phon e Number [address] CERNER MILLENNIUM POCT [...] CARE TEST ORDERABLE S Performing Organization Address City/[facility]/[place] [address] CERNER MILLENNIUM POCT Glucose [...] Organization Address City/State/[place] [address] CERNER MILLENNIUM Differential, Automated [...] Buckner MD HEMATOLOGY ORDERABLES Performing Organization Address City/[facility]/ZIP Code Phon e Number [place] [phone] CERNER MILLENNIUM (ABNORMAL) CMP [...] of Diabetes Mellitus, Position Statement from the [place] [employer]. ??Diabete s Care, Volume 33, [...] Organization Address City/State/ZIP Code Phon e Number [place] [phone] CERNER MILLENNIUM (ABNORMAL) CBC [...] Buckner MD HEMATOLOGY ORDERABLES Performing Organization Address City/[facility] Code Phon e Number [address] [facility] Phosphorus (06/26/2013 5:45 AM EST) P athologist Signature Phosphorus 3.9 2.5 - 4.5 CERNER mg/dL [facility] Specimen Anatomical Collection Method Collection Time Receive d Time (Source) Location / / Volume Laterality Blood specimen 06/26/2013 5:45 AM 013 5:54 (specimen) EST AM EST Resulting Agency Comment Spec In Lab Ev Buckner MD CHEMISTRY ORDERABLES Performing Organization Address City/[facility]/ZIP Code Phon e Number [address] [facility] ([facility] Magnesium (06/26/2013 5:45 AM EST) P athologist Signature Magnesium 0.67 (L) 0.69 - 1.07 CERNER mmol/L [facility] Specimen Anatomical Collection Method Collection Time Receive d Time (Source) Location / / Volume Laterality Blood specimen 06/26/2013 5:45 AM 013 5:54 (specimen) EST AM EST Resulting Agency Comment Spec In Lab Ev Buckner MD CHEMISTRY ORDERABLES Performing Organization Address City/[facility]/ZIP [facility] [place] [address] CERNER MILLENNIUM POCT Glucose [...] Address City/State/ZIP Code Phon e Number [address] CERNER MILLENNIUM (ABNORMAL) [...] CARE TEST ORDERABLE S Performing Organization Address City/[facility]/ZIP Code Phon e Number [address] CERNER MILLENNIUM (ABNORMAL) [...] Organization Address City/State/[place] [address] CERNER MILLENNIUM POCT Glucose (06/25/2013 5:10 PM EST) athologist Signature POC Glucose 118 60 - 199 CERNER mg/dL [facility] Comment: Supplemental ranges: <110 mg/dL before meals <200 mg/dL all other times of the day Specimen Anatomical Collection Method Collection Time Receive d Time (Source) Location / / Volume Laterality Blood specimen 06/25/2013 5:10 PM 013 5:10 (specimen) EST PM EST Tammy Mccann MD POINT OF CARE TEST ORDERABLE S Performing Organization Address City/[facility]/ZIP Code Phon e Number [address] CERNER MILLENNIUM POCT Glucose (06/25/2013 3:28 PM EST) athologist Signature POC Glucose 111 60 - 199 CERNER mg/dL [facility] Comment: Supplemental ranges: <110 mg/dL before meals <200 mg/dL all other times of the day Specimen Anatomical Collection Method Collection Time Receive d Time (Source) Location / / Volume Laterality Blood specimen 06/25/2013 3:28 PM 013 3:28 (specimen) EST PM EST Tammy Mccann MD POINT OF CARE TEST ORDERABLE S Performing Organization Address City/[facility] Phon e Number [address] [facility] Place PICC Line: Contact Vascular Access Page [phone] (06/25/2013 12:59 PM EST) Narrative Elizabeth Arguelles, STERILE INSTRUMENT TECHNICIAN - 06/25/2013 12: 59 PM EST Elizabeth [...] the planned procedu re. Hand Hygiene: The community development manager did perform hand hygiene pr ior to line insertion. Catheter type: PICC Lot number: [id number] Procedure Technique: Skin was prepped with chlorhexidine. [...] Arguelles RN 06/18/2013 Procedure Note Elizabeth Arguelles, STERILE INSTRUMENT TECHNICIAN - 06/18/2013 9:5 1 AM EST PICC/Midline [...] to the planned procedure. Hand Hygiene: The community development manager did perform hand hygiene pr ior to line insertion. Catheter type: PICC Lot number: [id number] Procedure Technique: Skin was prepped with chlorhexidine. [...] Glucose 88 60 - 199 CERNER mg/dL [facility] Comment: Supplemental ranges: <110 mg/dL before meals <200 mg/dL all other times of the day Specimen Anatomical Collection Method Collection Time Receive d Time (Source) Location / / Volume Laterality Blood specimen 06/25/2013 11:53 3 (specimen) AM EST 11:53 AM EST Tammy Mccann MD POINT OF CARE TEST ORDERABLE S Performing Organization Address City/State/ZIP Code Phon e Number [place] [phone] CERNER MILLENNIUM POCT Glucose [...] Organization Address City/State/[place] [address] CERNER MILLENNIUM Differential, Automated [...] Buckner MD HEMATOLOGY ORDERABLES Performing Organization Address City/[facility]/[place] [address] CERNER MILLENNIUM (ABNORMAL) CBC [...] Buckner MD HEMATOLOGY ORDERABLES Performing Organization Address City/[facility]/[place] [address] [facility] MILLENNIUM (ABNORMAL) Prealbumin (06/25/2013 5:55 AM EST) [...] Buckner MD CHEMISTRY ORDERABLES Performing Organization Address City/[facility]/[place] [address] CERNER MILLENNIUM Tacrolimus level (06/25/2013 5:55 AM EST) athologist Signature Tacrolimus Lvl 3.9 ng/mL CERNER MILLENNIUM Comment: Trough therapeutic: 5-15 ng/mL Specimen Anatomical Collection Method Collection Time Receive d Time (Source) Location / / Volume Laterality Blood specimen 06/25/2013 5:55 AM 013 8:05 (specimen) EST AM EST Resulting Agency Comment Spec In Lab Ev Buckner MD CHEMISTRY ORDERABLES Performing Organization Address City/[facility]/ZIP Code Phon e Number [address] CERNER MILLENNIUM POCT [...] CARE TEST ORDERABLE S Performing Organization Address City/[facility]/ZIP Code Phon e Number [address] CERNER MILLENNIUM POCT [...] CARE TEST ORDERABLE S Performing Organization Address City/[facility]/ZIP Code Phon e Number [address] CERNER MILLENNIUM POCT [...] CARE TEST ORDERABLE S Performing Organization Address City/[facility]/[place] [address] CERNER MILLENNIUM POCT Glucose [...] CARE TEST ORDERABLE S Performing Organization Address City/[facility]/ZIP Code Phon e Number [address] CERNER MILLENNIUM (ABNORMAL) [...] CARE TEST ORDERABLE S Performing Organization Address [facility]/ZIP Code Phon e Number [address] CERNER MILLENNIUM (ABNORMAL) [...] CARE TEST ORDERABLE S Performing Organization Address [facility]/ZIP Code Phon e Number [address] CERNER MILLENNIUM POCT [...] CARE TEST ORDERABLE S Performing Organization Address City/[facility]/ZIP Code Phon e Number [address] CERNER MILLENNIUM (ABNORMAL) [...] of Diabetes Mellitus, Position Statement from the [place] [employer]. ??Diabete s Care, Volume 33, [...] Buckner MD CHEMISTRY ORDERABLES Performing Organization Address City/[facility]/ZIP Code Phon e Number [address] CERNER MILLENNIUM POCT [...] CARE TEST ORDERABLE S Performing Organization Address City/[facility]/ZIP Code Phon e Number [address] CERNER MILLENNIUM POCT Glucose (06/24/2013 6:11 AM EST) P athologist Signature POC Glucose 89 60 - [...] Address City/State/ZIP Code Phon e Number [address] CERNER MILLENNIUM POCT [...] Organization Address City/State/[place] [address] CERNER MILLENNIUM Differential, Automated [...] Organization Address City/State/ZIP Code Phon e Number [place] [phone] CERNER MILLENNIUM (ABNORMAL) CBC [...] Organization Address City/State/[place] [address] CERNER MILLENNIUM POCT Glucose [...] CARE TEST ORDERABLE S Performing Organization Address City/[facility]/ZIP Code Phon e Number [address] CERNER MILLENNIUM (ABNORMAL) [...] CARE TEST ORDERABLE S Performing Organization Address City/[facility]/[place] [address] CERNER MILLENNIUM (ABNORMAL) POCT [...] CARE TEST ORDERABLE S Performing Organization Address City/[facility]/ZIP Code Phon e Number [address] CERNER MILLENNIUM (ABNORMAL) [...] CARE TEST ORDERABLE S Performing Organization Address City/[facility]/ZIP Code Phon e Number [address] CERNER MILLENNIUM (ABNORMAL) [...] CARE TEST ORDERABLE S Performing Organization Address City/[facility]/ZIP Code Phon e Number [address] CERNER MILLENNIUM (ABNORMAL) [...] CARE TEST ORDERABLE S Performing Organization Address City/[facility]/ZIP Code Phon e Number [address] CERNER MILLENNIUM (ABNORMAL) [...] CARE TEST ORDERABLE S Performing Organization Address City/[facility]/[place] [address] CERNER MILLENNIUM (ABNORMAL) POCT [...] CARE TEST ORDERABLE S Performing Organization Address City/[facility]/ZIP Code Phon e Number [address] CERNER MILLENNIUM (ABNORMAL) POCT Glucose (06/23/2013 6:25 AM EST) P athologist Signature POC Glucose 221 (H) 60 - 199 CERNER mg/dL [facility] Comment: Supplemental ranges: <110 mg/dL before meals <200 mg/dL all other times of the day Specimen Anatomical Collection Method Collection Time Receive d Time (Source) Location / / Volume Laterality Blood specimen 06/23/2013 6:25 AM 11/30/2 013 6:25 (specimen) EST AM EST Tammy Mccann MD POINT OF CARE TEST ORDERABLE S Performing Organization Address City/State/[place] [address] CERNER MILLENNIUM Differential, Automated [...] Organization Address City/State/[place] [address] [facility] MILLENNIUM (ABNORMAL) CBC (with Diff) (06/23/2013 6:08 [...] Buckner MD HEMATOLOGY ORDERABLES Performing Organization Address City/[facility]/ZIP Code Phon e Number [address] [facility] (ABNORMAL) CMP w/fasting Glucose (06/23/2013 6:08 [...] of Diabetes Mellitus, Position Statement from the [place] [employer]. ??Diabete s Care, Volume 33, [...] Buckner MD CHEMISTRY ORDERABLES Performing Organization Address City/[facility]/ZIP Code Phon e Number [address] CERNER MILLENNIUM (ABNORMAL) POCT Glucose (06/23/2013 3:51 AM EST) P athologist Signature POC Glucose 268 (H) 60 - 199 CERNER mg/dL [facility] Comment: Supplemental ranges: <110 mg/dL before meals <200 mg/dL all other times of the day Specimen Anatomical Collection Method Collection Time Receive d Time (Source) Location / / Volume Laterality Blood specimen 06/23/2013 3:51 AM 013 3:51 (specimen) EST AM EST Tammy Mccann MD POINT OF CARE TEST ORDERABLE S Performing Organization Address City/[facility]/ZIP Code Phon e Number [address] CERNER MILLENNIUM (ABNORMAL) POCT Glucose (06/23/2013 2:11 AM EST) P athologist Signature POC Glucose 291 (H) 60 - 199 CERNER mg/dL [facility] Comment: Supplemental ranges: <110 mg/dL before meals <200 mg/dL all other times of the day Specimen Anatomical Collection Method Collection Time Receive d Time (Source) Location / / Volume Laterality Blood specimen 06/23/2013 2:11 AM 013 2:11 (specimen) EST AM EST Tammy Mccann MD POINT OF CARE TEST ORDERABLE S Performing Organization Address City/[facility]/ZIP Code Phon e Number [address] CERNER MILLENNIUM (ABNORMAL) [...] CARE TEST ORDERABLE S Performing Organization Address City/[facility]/[place] [address] CERNER MILLENNIUM (ABNORMAL) POCT [...] Address City/State/ZIP Code Phon e Number [address] CERNER MILLENNIUM (ABNORMAL) [...] CARE TEST ORDERABLE S Performing Organization Address City/[facility] Code Phon e Number [address] CERNER MILLENNIUM (ABNORMAL) [...] CARE TEST ORDERABLE S Performing Organization Address City/[facility]/ZIP Code Phon e Number [address] CERNER MILLENNIUM POCT [...] CARE TEST ORDERABLE S Performing Organization Address City/[facility]/[place] [address] CERNER MILLENNIUM POCT Glucose [...] CARE TEST ORDERABLE S Performing Organization Address City/[facility]/ZIP Code Phon e Number [address] CERNER MILLENNIUM POCT [...] CARE TEST ORDERABLE S Performing Organization Address City/[facility]/[place] [address] CERNER MILLENNIUM POCT Glucose [...] Organization Address City/State/[place] [address] CERNER MILLENNIUM POCT Glucose [...] Organization Address City/State/[place] [address] CERNER MILLENNIUM POCT Glucose [...] CARE TEST ORDERABLE S Performing Organization Address City/[facility]/[place] [address] CERNER MILLENNIUM Vancomycin, trough [...] Buckner MD CHEMISTRY ORDERABLES Performing Organization Address City/[facility]/[place] [address] CERNER MILLENNIUM POCT Glucose [...] Address City/State/ZIP Code Phon e Number [address] CERNER MILLENNIUM POCT [...] Address City/State/ZIP Code Phon e Number [address] CERNER MILLENNIUM POCT [...] CARE TEST ORDERABLE S Performing Organization Address City/[facility]/ZIP Code Phon e Number [address] CERNER MILLENNIUM POCT [...] Organization Address City/State/[place] [address] [facility] POCT Glucose (06/22/2013 4:32 AM EST) P athologist Signature POC Glucose 186 60 - 199 CERNER mg/dL [facility] Comment: Supplemental ranges: <110 mg/dL before meals <200 mg/dL all other times of the day Specimen Anatomical Collection Method Collection Time Receive d Time (Source) Location / / Volume Laterality Blood specimen 06/22/2013 4:32 AM 013 4:32 (specimen) EST AM EST Tammy Mccann MD POINT OF CARE TEST ORDERABLE S Performing Organization Address City/[facility]/ZIP Code Phon e Number [address] [facility] MILLENNIUM Antibody screen (06/22/2013 4:00 AM EST) Analysis Performed At Patho logist Time Signature Ab Screen Negative [facility] Expires at [id number] [facility] [id number] on: MILLENNIUM Specimen Anatomical Collection Method Collection Time Receive d Time (Source) Location / / Volume Laterality Blood specimen 06/22/2013 4:00 AM 013 4:26 (specimen) EST AM EST Resulting Agency Comment Spec In Lab Ev Buckner MD BLOOD BANK ORDERABLES Performing Organization Address City/State/ZIP Code Phon e Number [address] [facility]ILL[facility] ABO/Rh Typing (06/22/2013 4:00 AM EST) P athologist Signature ABORh Type O Pos [facility] Specimen Anatomical Collection Method Collection Time Receive d Time (Source) Location / / Volume Laterality Blood specimen 06/22/2013 4:00 AM 013 4:26 (specimen) EST AM EST Resulting Agency Comment Spec In Lab Ev Buckner MD BLOOD BANK ORDERABLES Performing Organization Address City/State/ZIP Code Phon e Galilea OQUENDO [place] [id number] CERNER MILLENNIUM Differential, Automated [...] Address City/State/ZIP [place] [address] CERNER MILLENNIUM (ABNORMAL) Basic [...] Address City/State/ZIP [place] [address] CERNER MILLENNIUM (ABNORMAL) CBC [...] Buckner MD HEMATOLOGY ORDERABLES Performing Organization Address City/[facility]/ZIP [place] [address] CERNER MILLENNIUM POCT Glucose [...] Organization Address City/State/[place] [address] CERNER MILLENNIUM POCT Glucose (06/22/2013 1:57 AM EST) P athologist Signature POC Glucose 165 60 - [...] CARE TEST ORDERABLE S Performing Organization Address City/[facility]/ZIP Code Phon e Number [address] CERNER MILLENNIUM POCT [...] Organization Address City/State/[place] [address] CERNER MILLENNIUM POCT Glucose [...] CARE TEST ORDERABLE S Performing Organization Address City/[facility]/ZIP Code Phon e Number [address] CERNER MILLENNIUM (ABNORMAL) [...] Address City/State/ZIP Code Phon e Number [address] CERNER MILLENNIUM (ABNORMAL) [...] Address City/State/ZIP Code Phon e Number [address] CERNER MILLENNIUM (ABNORMAL) [...] Organization Address City/State/[place] [address] CERNER MILLENNIUM (ABNORMAL) POCT [...] CARE TEST ORDERABLE S Performing Organization Address City/[facility]/ZIP Code Phon e Number [address] CERNER MILLENNIUM (ABNORMAL) POCT Glucose (06/21/2013 4:49 PM EST) P athologist Signature POC Glucose [...] CARE TEST ORDERABLE S Performing Organization Address City/[facility]/ZIP Code Phon e Number [address] CERNER MILLENNIUM (ABNORMAL) [...] Organization Address City/State/ZIP Code Phon e Number [place] [id number] HOLLI GullivearthENNIUM XR chest PA or AP- 1 view [...] Urinalysis with microscopic (06/21/2013 12:01 PM EST) [facility] Method Time Signature Glucose UA 300 (A) [...] UA Clear Clear CERNER MILLENNIU M Spec [place] UA 1.011 1.002 - 1.030 CERNER MIL [...] Organization Address City/State/[place] [address] CERNER MILLENNIUM Urine culture Indwelling Catheter Urine (06/21/2013 12:00 PM EST) [facility] Method Time Signature Urine Culture CERNER ? Patient Name: LEROY DAILEY ?Ordered By: EV BUCKNER ? MR#: [id number] ?LOC: ??ICUS ? /Sex: ??1955 (58 years), [...] Address City/State/ZIP Code Phon e Number [address] CERFliteIUM (ABNORMAL) POCT Glucose (06/21/2013 11:34 AM EST) P athologist Signature POC Glucose 251 (H) 60 - 199 CERNER mg/dL [facility] Comment: Supplemental ranges: <110 mg/dL before meals <200 mg/dL all other times of the day Specimen Anatomical Collection Method Collection Time Receive d Time (Source) Location / / Volume Laterality Blood specimen 06/21/2013 11:34 3 (specimen) AM EST 11:34 AM EST Tammy Mccann MD POINT OF CARE TEST ORDERABLE S Performing Organization Address City/State/ZIP Code Phon e Number [address] CERFliteIUM XR chest PA or AP- 1 view [...] CARE TEST ORDERABLE S Performing Organization Address City/[facility]/ZIP Code [facility] e Number [address] CERNER MILLENNIUM Tacrolimus level (06/21/2013 7:50 AM EST) athologist Signature Tacrolimus Lvl 3.4 ng/mL CERNER MILLENNIUM Comment: Trough therapeutic: 5-15 ng/mL Specimen Anatomical Collection Method Collection Time Receive d Time (Source) Location / / Volume Laterality Blood specimen 06/21/2013 7:50 AM 013 (specimen) EST 10:29 AM EST Resulting Agency Comment Spec In Lab Ev Buckner MD CHEMISTRY ORDERABLES Performing Organization Address City/[facility] [place] [address] CERNER MILLENNIUM (ABNORMAL) POCT [...] Address City/State/ZIP Code Phon e Number [address] CERNER MILLENNIUM (ABNORMAL) [...] Address City/State/ZIP Code Phon e Number [address] CERNER MILLENNIUM (ABNORMAL) [...] Organization Address City/State/[place] [address] CERNER MILLENNIUM (ABNORMAL) Basic [...] OMKAR NIUM Estimated GFR 53 (L) >=60 HOLLI DOUGLASSHELDONERICKSON Ramirez Comment: This estimated GFR (eGFR) [...] Organization Address City/State/[place] [address] CERNER MILLENNIUM (ABNORMAL) CBC [...] Buckner MD HEMATOLOGY ORDERABLES Performing Organization Address City/[facility]/ZIP Code Phon e Number [address] CERNER MILLENNIUM (ABNORMAL) POCT Glucose (06/21/2013 12:11 AM EST) P athologist Signature POC Glucose 225 (H) 60 - 199 CERNER mg/dL [facility] Comment: Supplemental ranges: <110 mg/dL before meals <200 mg/dL all other times of the day Specimen Anatomical Collection Method Collection Time Receive d Time (Source) Location / / Volume Laterality Blood specimen 06/21/2013 12:11 3 (specimen) AM EST 12:11 AM EST Tammy Mccann MD POINT OF CARE TEST ORDERABLE S Performing Organization Address City/[facility]/ZIP Code Phon e Number [address] CERNER MILLENNIUM POCT Glucose (06/20/2013 7:52 PM EST) athologist Signature POC Glucose 148 60 - 199 [facility]ERNER mg/dL [facility] Comment: Supplemental ranges: <110 mg/dL before meals <200 mg/dL all other times of the day Specimen Anatomical Collection Method Collection Time Receive d Time (Source) Location / / Volume Laterality Blood specimen 06/20/2013 7:52 PM 013 7:52 (specimen) EST PM EST Tammy Mccann MD POINT OF CARE TEST ORDERABLE S Performing Organization Address City/[facility]/ZIP Code Phon e Number [address] CERNER MILLENNIUM Potassium (06/20/2013 7:50 PM EST) athologist Signature Potassium 4.3 3.5 - 5.0 CERNER mmol/L [facility] Comment: Please note: ??Patients with WBC [...] Mccann MD CHEMISTRY ORDERABLES Performing Organization Address City/[facility]/ZIP Code Phon e Number [address] CERNER MILLENNIUM (ABNORMAL) [...] CARE TEST ORDERABLE S Performing Organization Address City/[facility]/ZIP Code Phon e Number [address] CERNER MILLENNIUM (ABNORMAL) [...] CARE TEST ORDERABLE S Performing Organization Address City/[facility]/ZIP Code Phon e Number [address] CERNER MILLENNIUM POCT [...] Address City/State/ZIP Code Phon e Number [address] CERNER MILLENNIUM POCT [...] Address City/State/ZIP Code Phon e Number [address] CERNER MILLENNIUM POCT Glucose (06/20/2013 8:01 AM EST) athologist Signature POC Glucose 149 60 - 199 CERNER mg/dL MILLENNIUM Comment: Supplemental ranges: <110 mg/dL before meals <200 mg/dL all other times of the day Specimen Anatomical Collection Method Collection Time Receive d Time (Source) Location / / Volume Laterality Blood specimen 06/20/2013 8:01 AM 06/20/2 013 8:01 (specimen) EST AM EST Tammy Mccann MD POINT OF CARE TEST ORDERABLE S Performing Organization Address City/State/ZIP Code Phon e Number [address] CERNER MILLENNIUM Potassium (06/20/2013 8:00 AM EST) athologist Signature Potassium 4.7 3.5 - 5.0 CERNER mmol/L [facility] Comment: Please note: ??Patients with WBC [...] Mccann MD CHEMISTRY ORDERABLES Performing Organization Address City/[facility]/ZIP Code Phon e Number [address] CERNER MILLENNIUM Tacrolimus level (06/20/2013 8:00 AM EST) athologist [facility] Tacrolimus Lvl 4.8 ng/mL CERNER [facility] Comment: Trough therapeutic: 5-15 ng/mL Specimen Anatomical Collection Method Collection Time Receive d Time (Source) Location / / Volume Laterality Blood specimen 06/20/2013 8:00 AM 013 (specimen) EST 12:04 PM EST Resulting Agency Comment Spec In Lab Tammy Mccann MD CHEMISTRY ORDERABLES Performing Organization Address City/[facility]/ZIP Code Phon e Number [address] CERNER MILLENNIUM POCT Glucose (06/20/2013 6:17 AM EST) athologist [facility] POC Glucose 136 60 - 199 CERNER mg/dL [facility] Comment: Supplemental ranges: <110 mg/dL before meals <200 mg/dL all other times of the day Specimen Anatomical Collection Method Collection Time Receive d Time (Source) Location / / Volume Laterality Blood specimen 06/20/2013 6:17 AM 013 6:17 (specimen) EST AM EST Tammy Mccann MD POINT OF CARE TEST ORDERABLE S Performing Organization Address City/State/ZIP Code Phon e Number [address] CERNER MILLENNIUM (ABNORMAL) [...] Organization Address City/State/[place] [address] CERNER MILLENNIUM (ABNORMAL) Basic [...] Organization Address City/State/[place] [address] CERNER MILLENNIUM (ABNORMAL) CBC [...] Address City/State/ZIP Code Phon e Number [address] CERNER MILLENNIUM (ABNORMAL) [...] Comment: Total Hemoglobin (in gm/dL) ?Based on [facility] Hematology ran ges: ?Age ?Referen ce Range [...] Mccann MD CHEMISTRY ORDERABLES Performing Organization Address City/[facility]/[place] [address] CERNER MILLENNIUM POCT Glucose [...] CARE TEST ORDERABLE S Performing Organization Address City/[facility]/ZIP Code Phon e Number [address] CERNER MILLENNIUM POCT Glucose (06/20/2013 2:14 AM EST) athologist Signature POC Glucose 151 60 - 199 CERNER mg/dL [facility] Comment: Supplemental ranges: <110 mg/dL before meals <200 mg/dL all other times of the day Specimen Anatomical Collection Method Collection Time Receive d Time (Source) Location / / Volume Laterality Blood specimen 06/20/2013 2:14 AM 013 2:14 (specimen) EST AM EST Tammy Mccann MD POINT OF CARE TEST ORDERABLE S Performing Organization Address City/[facility]/[place] [address] CERNER MILLENNIUM Potassium (06/19/2013 [...] Organization Address City/State/[place] [address] CERNER MILLENNIUM POCT Glucose [...] Organization Address City/State/[place] [address] CERNER MILLENNIUM (ABNORMAL) BLOOD [...] Comment: Total Hemoglobin (in gm/dL) ?Based on [facility] Hematology ran ges: ?Age ?Referen ce Range [...] Organization Address City/State/[place] [address] CERNER MILLENNIUM Potassium (06/19/2013 9:15 PM EST) athologist Signature Potassium 4.4 3.5 - 5.0 CERNER mmol/L [facility] Comment: Please note: ??Patients with WBC [...] Mccann MD CHEMISTRY ORDERABLES Performing Organization Address City/[facility]/ZIP Code Phon e Number [address] CERNER MILLENNIUM POCT Glucose (06/19/2013 8:09 PM EST) athologist Signature POC Glucose 141 60 - 199 CERNER mg/dL [facility] Comment: Supplemental ranges: <110 mg/dL before meals <200 mg/dL all other times of the day Specimen Anatomical Collection Method Collection Time Receive d Time (Source) Location / / Volume Laterality Blood specimen 06/19/2013 8:09 PM 013 8:09 (specimen) EST PM EST Tammy Mccann MD POINT OF CARE TEST ORDERABLE S Performing Organization Address City/[facility]/ZIP Code Phon e Number [address] CERNER MILLENNIUM POCT [...] CARE TEST ORDERABLE S Performing Organization Address City/[facility]/[place] [address] CERNER MILLENNIUM Potassium (06/19/2013 4:43 PM EST) athologist Signature Potassium 4.5 3.5 - 5.0 CERNER mmol/L [facility] Comment: Please note: ??Patients with WBC [...] Mccann MD CHEMISTRY ORDERABLES Performing Organization Address City/[facility]/[place] [address] CERNER MILLENNIUM POCT Glucose [...] CARE TEST ORDERABLE S Performing Organization Address City/[facility]/[place] [address] CERNER MILLENNIUM Potassium (06/19/2013 12:21 PM EST) P athologist Signature Potassium 4.7 3.5 - 5.0 CERNER mmol/L [facility] Comment: Please note: ??Patients with WBC [...] Mccann MD CHEMISTRY ORDERABLES Performing Organization Address City/[facility]/ZIP Code Phon e Number [address] CERNER MILLENNIUM POCT Glucose (06/19/2013 12:01 PM EST) athologist Signature POC Glucose 198 60 - 199 CERNER mg/dL [facility] Comment: Supplemental ranges: <110 mg/dL before meals <200 mg/dL all other times of the day Specimen Anatomical Collection Method Collection Time Receive d Time (Source) Location / / Volume Laterality Blood specimen 06/19/2013 12:01 3 (specimen) PM EST 12:01 PM EST Tammy Mccann MD POINT OF CARE TEST ORDERABLE S Performing Organization Address City/State/ZIP Code Phon e Number [address] CERNER MILLENNIUM Blood culture (06/19/2013 11:07 AM EST) Patholo gist Method Time Signature Blood Culture CERNER ? Patient Name: LEROY DAILEY ?Ordered By: TAMMY MCCANN ? MR#: [id number] ?LOC: ??3WST ? /Sex: ??1955 (58 years), [...] Organization Address City/State/[place] [address] CERNER [facility] POCT Glucose (06/19/2013 10:04 AM EST) P athologist Signature POC Glucose 193 60 - 199 CERNER mg/dL [facility] Comment: Supplemental ranges: <110 mg/dL before meals <200 mg/dL all other times of the day Specimen Anatomical Collection Method Collection Time Receive d Time (Source) Location / / Volume Laterality Blood specimen 06/19/2013 10:04 3 (specimen) AM EST 10:04 AM EST Tammy Mccann MD POINT OF CARE TEST ORDERABLE S Performing Organization Address City/[facility]/[place] [address] CERNER MILLENNIUM Differential, Automated [...] Mccann MD HEMATOLOGY ORDERABLES Performing Organization Address City/[facility]/[place] [address] CERNER MILLENNIUM (ABNORMAL) CBC [...] Organization Address City/State/[place] [address] CERNER MILLENNIUM POCT Glucose [...] Address City/State/ZIP [place] [address] CERNER MILLENNIUM (ABNORMAL) BLOOD GAS 2 ARTERIAL (06/19/2013 8:32 AM EST) [facility] gist Method Time Signature pH Art 7.35 (L) CERNER MILLENNIUM pCO2 Art 29 (L) mmHg CERNER MILLENNIUM pO2 Art 119 (H) mmHg CERNER MILLENNIUM HCO3 Art 15.4 (L) mmol/L CERNER MILLENNIUM BE Art -10.0 (L) mmol/L CERNER MILLENNIUM Hgb Blood Gas 10.7 (L) gm/dL CERNER MILLENNIUM Comment: Total Hemoglobin (in gm/dL) ?Based on [facility] Hematology ran ges: ?Age ?Referen ce Range [...] Organization Address City/State/[place] [address] CERNER MILLENNIUM EBV PCR Quant (06/19/2013 8:25 AM EST) [facility] gist Method Time Signature EBV NONE DETECTED. CERNER PCR,Quantitat MILLENNIUM roderick ?Lower limit of detection is 500 copies/mL. Comment: This test was developed and its performa nce determined by the [facility] Dept. of Pathology, Clinical Laboratory. ??It has [...] Address City/State/ZIP Code Phon e Number [address] CERNER MILLENNIUM CMV PCR, Quantitative (06/19/2013 8:25 AM EST) Patholo gist Method Time Signature CMV DNA PCR Undetected Undetected CERNER Quant IU/mL [facility] Comment: Result in log IU/mL is Undetected. The quantification range of this assay i s 137 to 9,100,000 IU/mL (2.14 log to 6.96 log IU/mL) with a limit of detection at 91 IU/mL (1.96 log IU/mL). Testing was performed by the [employer] AmpliPrep/DEO T aqMan CMV Test ([employer] Test Performed by: [place] [address] Weigh Machine Operator: Purnima Ayoub, Ph. D. Specimen Anatomical Collection Method Collection Time Receive d Time (Source) Location / / Volume Laterality Blood specimen 06/19/2013 8:25 AM 013 2:52 (specimen) EST PM EST Resulting Agency Comment Spec In Lab Tammy Mccann MD IMMUNOLOGY ORDERABLES Performing Organization Address City/[facility]/ZIP Code Phon e Number [address] CERNER MILLENNIUM Potassium (06/19/2013 8:25 AM EST) P athologist Signature Potassium 5.0 3.5 - 5.0 CERNER mmol/L [facility] Comment: Please note: ??Patients with WBC [...] Address City/State/ZIP Code Phon e Number [address] CERNER MILLENNIUM CT [...] 7.28 CERNER (Critical) MILLENNIUM Comment: Noted by surgical instrument mechanic. pCO2 Art 31 (L) mmHg CERNER MILLENNIUM pO2 Art 95 mmHg CERNER MILLENNIUM HCO3 Art 14.0 (L) mmol/L CERNER MILLENNIUM BE Art -12.8 (L) mmol/L CERNER MILLENNIUM Hgb Blood Gas 9.0 (L) gm/dL HOLLI Ramirez Comment: Total Hemoglobin (in gm/dL) ?Based on [facility] Hematology ran ges: ?Age ?Referen ce Range [...] Organization Address City/State/[place] [address] CERNER MILLENNIUM POCT Glucose [...] Organization Address City/State/[place] [address] CERNER MILLENNIUM Lactic acid, plasma (06/19/2013 4:15 AM EST) athologist Signature Lactate 0.6 0.5 - 2.2 CERNER mmol/L MILLENNIUM Specimen Anatomical Collection Method Collection Time Receive d Time (Source) Location / / Volume Laterality Blood specimen 06/19/2013 4:15 AM 013 4:23 (specimen) EST AM EST Resulting Agency Comment Spec In Lab Tammy Mccann MD CHEMISTRY ORDERABLES Performing Organization Address City/[facility]/[place] [address] CERNER MILLENNIUM (ABNORMAL) Basic [...] Address City/State/ZIP Code Phon e Number [address] [facility] POCT Glucose (06/19/2013 4:12 AM EST) athologist Signature POC Glucose 182 60 - 199 CERNER mg/dL [facility] Comment: Supplemental ranges: <110 mg/dL before meals <200 mg/dL all other times of the day Specimen Anatomical Collection Method Collection Time Receive d Time (Source) Location / / Volume Laterality Blood specimen 06/19/2013 4:12 AM 013 4:12 (specimen) EST AM EST Tammy Mccann MD POINT OF CARE TEST ORDERABLE S Performing Organization Address City/[facility]/ZIP [facility] Phon e Number [address] [facility] (ABNORMAL) BLOOD GAS 2 ARTERIAL (06/19/2013 3:45 AM EST) athologist Signature pH Art 7.17 CERNER (Critical) MILLENNIUM Comment: Noted by surgical instrument mechanic. pCO2 Art 46 (H) mmHg CERNER MILLENNIUM pO2 Art 86 mmHg CERNER MILLENNIUM HCO3 Art 16.1 (L) mmol/L CERNER MILLENNIUM BE Art -12.4 (L) mmol/L CERNER MILLENNIUM Hgb Blood Gas 9.8 (L) gm/dL HOLLI BALLARDIJanneth M Comment: Total Hemoglobin (in gm/dL) ?Based on [facility] Hematology ran ges: ?Age ?Referen ce Range [...] MILLENNI UM K Whole Blood 4.0 mmol/L [facility] MILL[facility] M Comment: Please note: Patients [...] Mccann MD CHEMISTRY ORDERABLES Performing Organization Address City/[facility]/ZIP Code Phon e Number [address] CERNER MILLENNIUM Potassium [...] Mccann MD CHEMISTRY ORDERABLES Performing Organization Address City/[facility]/ZIP Code Phon e Number [address] CERNER MILLENNIUM Tacrolimus [...] Mccann MD CHEMISTRY ORDERABLES Performing Organization Address City/[facility]/ZIP Code Phon e Number [address] CERNER MILLENNIUM POCT [...] CARE TEST ORDERABLE S Performing Organization Address City/[facility]/ZIP Code Phon e Number [address] CERNER MILLENNIUM POCT [...] CARE TEST ORDERABLE S Performing Organization Address City/[facility]/ZIP Code Phon e Number [address] CERNER MILLENNIUM Potassium [...] Mccann MD CHEMISTRY ORDERABLES Performing Organization Address City/[facility]/ZIP Code Phon e Number [address] CERNER MILLENNIUM POCT [...] CARE TEST ORDERABLE S Performing Organization Address City/[facility]/ZIP Code Phon e Number [address] CERNER MILLENNIUM POCT [...] CARE TEST ORDERABLE S Performing Organization Address City/[facility]/ZIP Code Phon e Number [address] CERNER MILLENNIUM POCT [...] CARE TEST ORDERABLE S Performing Organization Address City/[facility]/[place] [address] CERNER MILLENNIUM POCT Glucose [...] CARE TEST ORDERABLE S Performing Organization Address City/[facility]/ZIP Code Phon e Number [address] CERNER MILLENNIUM (ABNORMAL) [...] Mccann MD CHEMISTRY ORDERABLES Performing Organization Address City/[facility]/[place] [address] CERNER MILLENNIUM POCT Glucose [...] CARE TEST ORDERABLE S Performing Organization Address City/[facility]/[place] [address] CERNER MILLENNIUM Potassium (06/18/2013 2:05 [...] Address City/State/ZIP Code Phon e Number [address] CERNER MILLENNIUM POCT [...] Organization Address City/State/[place] [address] CERNER MILLENNIUM POCT Glucose [...] Organization Address City/State/[place] [address] [facility] GullivearthREG[facility] XR VAS venous access (PICC placement) (06/18/2013 [...] P athologist Signature Vanc Trough 15.4 mg/L [facility] Comment: Therapeutic range for complicated infect ions such as bacteremia, endocarditis, osteomyelitis, meningitis, and hospital- acquired pneumonia caused by S. aureus: 15-20 mg/L Therapeutic range for other indications: 10-15 mg/L Toxic: >25mg/L Reference: Vancomycin Therapeutic Monitoring: Revbettye winters and Recommendations from the ASHP, IDSA and SIDP Task Force. ??Am J Health- Syst Pharm. 2009; 66:82-98 Specimen Anatomical Collection Method Collection Time Receive d Time (Source) Location / / Volume Laterality Blood specimen 06/18/2013 9:55 AM 013 (specimen) EST 10:01 AM EST Resulting Agency Comment Spec In Lab Ev Buckner MD CHEMISTRY ORDERABLES Performing Organization Address City/State/[place] [address] CERNER MILLENNIUM POCT Glucose (06/18/2013 9:53 AM EST) P athologist Signature POC Glucose 169 60 - 199 CERNER mg/dL [facility] Comment: Supplemental ranges: <110 mg/dL before meals <200 mg/dL all other times of the day Specimen Anatomical Collection Method Collection Time Receive d Time (Source) Location / / Volume Laterality Blood specimen 06/18/2013 9:53 AM 013 9:53 (specimen) EST AM EST Tammy Mccann MD POINT OF CARE TEST ORDERABLE S Performing Organization Address City/[facility]/ZIP Code Phon e Number [address] CERNER MILLENNIUM POCT Glucose (06/18/2013 9:30 AM EST) P athologist Signature POC Glucose 169 60 - 199 CERNER mg/dL [facility] Comment: Supplemental ranges: <110 mg/dL before meals <200 mg/dL all other times of the day Specimen Anatomical Collection Method Collection Time Receive d Time (Source) Location / / Volume Laterality Blood specimen 06/18/2013 9:30 AM 013 9:30 (specimen) EST AM EST Tammy Mccann MD POINT OF CARE TEST ORDERABLE S Performing Organization Address City/[facility]/[place] [address] C[facility]ER [facility] Urine culture Indwelling Catheter Urine (06/18/2013 9:18 AM EST) [facility] gist Method Time Signature Urine Culture CERNER ? Patient Name: LEROY DAILEY O ?Ordered By: TAMMY MCCANN ? MR#: [id number] ?LOC: ??ICUS ? /Sex: ??1955 (58 years), [...] Organization Address City/State/[place] [address] HOLLI MILLSHELDONIUM Lower Respiratory Culture Tracheal Aspirate (06/18/2013 9:18 AM EST) Component Value Ref Test Analysis Performed At [facility] gist Range Method Time Signature Lower CERNER Respiratory ? Patient Name: LEROY DAILEY ?Ordered By: TAMMY MCCANN [facility] Culture ? MR#: [id number] ?LOC: ??ICUS ? /Sex: ??1955 (58 years), [...] - GENERAL ORDER STEPHANIE Performing Organization Address City/[facility] e [address] CERNER MILLENNIUM Lipase (06/18/2013 8:30 AM EST) athologist Signature Lipase 9 0 - 60 CERNER unit/L MILLENNIUM Specimen Anatomical Collection Method Collection Time Receive d Time (Source) Location / / Volume Laterality Blood specimen 06/18/2013 8:30 AM 013 9:38 (specimen) EST AM EST Resulting Agency Comment Spec In Lab Ev Buckner MD CHEMISTRY ORDERABLES Performing Organization Address [facility] Phon e Number [address] CERNER MILLENNIUM (ABNORMAL) Amylase (06/18/2013 [...] Organization Address City/State/ZIP Code Phon e Number [place] [phone] CERNER MILLENNIUM (ABNORMAL) Comprehensive [...] Address City/State/ZIP Code Phon e Number [address] CERNER MILLENNIUM POCT [...] Address City/State/ZIP Code Phon e Number [address] CERNER MILLENNIUM POCT Glucose (06/18/2013 6:59 AM EST) P athologist Signature POC Glucose 168 60 - 199 CERNER mg/dL [facility] Comment: Supplemental ranges: <110 mg/dL before meals <200 mg/dL all other times of the day Specimen Anatomical Collection Method Collection Time Receive d Time (Source) Location / / Volume Laterality Blood specimen 06/18/2013 6:59 AM 013 6:59 (specimen) EST AM EST Tammy Mccann MD POINT OF CARE TEST ORDERABLE S Performing Organization Address City/State/[place] [address] CERNER [facility] Urine culture Urine (06/18/2013 6:37 AM EST) [facility] gist Method Time Signature Urine Culture CERNER ? Patient Name: LEROY DAILEY ?Ordered By: TAMMY MCCANN [facility] ? MR#: [id number] ?LOC: ??ICUS ? /Sex: ??1955 (58 years), ? Male ? PROCEDURE: Urine Culture ?SOURCE: U [facility] ? COLLECTED: 06/18/2013 06:37 ? STARTED: 06/18/2013 [...] - GENERAL ORDER STEPHANIE Performing Organization Address City/[facility]/ZIP Code Phon e Number [address] CERNER MILLENNIUM (ABNORMAL) Urinalysis with microscopic (06/18/2013 6:37 AM EST) [facility] gist Method Time Signature Glucose UA [...] UA Clear Clear CERNER MILLENNIU M Spec [place] UA 1.011 1.002 - 1.030 CERNER MIL [...] Mccann MD URINE ORDERABLES Performing Organization Address City/[facility]/ZIP Code Phon e Number [address] [facility] POCT Glucose (06/18/2013 6:12 AM EST) [...] Organization Address City/State/[place] [address] CERNER MILLENNIUM Differential, Automated [...] Address City/State/ZIP Code Phon e Number [address] [facility] (ABNORMAL) Magnesium (06/18/2013 6:10 AM EST) P athologist Signature Magnesium 0.62 (L) 0.69 - 1.07 CERNER mmol/L [facility] Specimen Anatomical Collection Method Collection Time Receive d Time (Source) Location / / Volume Laterality Blood specimen 06/18/2013 6:10 AM 013 6:17 (specimen) EST AM EST Resulting Agency Comment Spec In Lab Tammy Mccann MD CHEMISTRY ORDERABLES Performing Organization Address City/State/[place] [address] CERNER [facility] ([facility]NORMAL) BMP w/fasting Glucose (06/18/2013 6:10 AM EST) P athologist Signature Glucose 163 (H) 65 - 99 CERNER Fasting mg/dL [facility] Comment: ?Fasting* Glucose Interpretive C riteria [...] of Diabetes Mellitus, Position Statement from the [place] [employer]. ??Diabete s Care, Volume 33, Supplement 1, Jul 2009 BUN 26 (H) 10 - 20 mg/dL [facility] Creatinine 1.59 (H) 0.80 - 1.50 mg/dL [...] Organization Address City/State/[place] [address] CERNER MILLENNIUM (ABNORMAL) CBC [...] Organization Address City/State/ZIP Code Phon e Number [place] [phone] CERNER MILLENNIUM (ABNORMAL) BLOOD [...] Comment: Total Hemoglobin (in gm/dL) ?Based on [employer] Hematology ran ges: ?Age ?Referen ce Range [...] Mccann MD CHEMISTRY ORDERABLES Performing Organization Address City/[facility]/ZIP Code Phon e Number [address] CERNER MILLENNIUM POCT [...] CARE TEST ORDERABLE S Performing Organization Address City/[facility]/ZIP Code Phon e Number [address] CERNER MILLENNIUM POCT [...] Address City/State/ZIP Code Phon e Number [address] CERNER MILLENNIUM POCT [...] CARE TEST ORDERABLE S Performing Organization Address [facility] Phon e Number [address] CERNER MILLENNIUM (ABNORMAL) Magnesium (06/18/2013 2:15 AM EST) P athologist Signature Magnesium 0.65 (L) 0.69 - 1.07 CERNER mmol/L MILLENNIUM Specimen Anatomical Collection Method Collection Time Receive d Time (Source) Location / / Volume Laterality Blood specimen 06/18/2013 2:15 AM 013 2:24 (specimen) EST AM EST Resulting Agency Comment Spec In Lab Tammy Mccann MD CHEMISTRY ORDERABLES Performing Organization Address [facility] Phon e Number [address] CERNER MILLENNIUM (ABNORMAL) [...] Mccann MD CHEMISTRY ORDERABLES Performing Organization Address [facility] Phon e Number [address] CERNER MILLENNIUM POCT Glucose (06/18/2013 1:06 AM EST) athologist Signature POC Glucose 187 60 - 199 CERNER mg/dL [facility] Comment: Supplemental ranges: <110 mg/dL before meals <200 mg/dL all other times of the day Specimen Anatomical Collection Method Collection Time Receive d Time (Source) Location / / Volume Laterality Blood specimen 06/18/2013 1:06 AM 013 1:06 (specimen) EST AM EST Tammy Mccann MD POINT OF CARE TEST ORDERABLE S Performing Organization Address City/State/[place] [address] CERNER MILLENNIUM POCT Glucose [...] CARE TEST ORDERABLE S Performing Organization Address City/[facility]/ZIP Code Phon e Number [address] CERNER MILLENNIUM POCT [...] Address City/State/ZIP Code Phon e Number [address] CERNER MILLENNIUM (ABNORMAL) Potassium (06/17/2013 10:20 PM EST) athologist Signature Potassium 5.3 (H) 3.5 - 5.0 CERNER mmol/L [facility] Comment: Please note: ??Patients with WBC [...] Address City/State/ZIP Code Phon e Number [address] CERNER MILLENNIUM (ABNORMAL) Magnesium (06/17/2013 10:20 PM EST) athologist Signature Magnesium 0.62 (L) 0.69 - 1.07 CERNER mmol/L MILLENNIUM Specimen Anatomical Collection Method Collection Time Receive d Time (Source) Location / / Volume Laterality Blood specimen 06/17/2013 10:20 3 (specimen) PM EST 10:25 PM EST Resulting Agency Comment Spec In Lab Tammy Mccann MD CHEMISTRY ORDERABLES Performing Organization Address City/[facility]/[place] [address] CERNER MILLENNIUM POCT Glucose (06/17/2013 10:17 PM EST) athologist Signature POC Glucose 151 60 - 199 CERNER mg/dL [facility] Comment: Supplemental ranges: <110 mg/dL before meals <200 mg/dL all other times of the day Specimen Anatomical Collection Method Collection Time Receive d Time (Source) Location / / Volume Laterality Blood specimen 06/17/2013 10:17 3 (specimen) PM EST 10:17 PM EST Tammy Mccann MD POINT OF CARE TEST ORDERABLE S Performing Organization Address City/[facility]/ZIP Code Phon e Number [address] CERNER MILLENNIUM POCT [...] Organization Address City/State/[place] [address] CERNER MILLENNIUM (ABNORMAL) BLOOD GAS 2 ARTERIAL (06/17/2013 8:48 PM EST) [facility] gist Method Time Signature pH Art 7.21 CERNER (Critical) MILLENNIUM pCO2 Art 45 mmHg CERNER MILLENNIUM pO2 Art 70 (L) mmHg CERNER MILLENNIUM HCO3 Art 17.6 (L) mmol/L CERNER MILLENNIUM BE Art -10.3 (L) mmol/L CERNER MILLENNIUM Hgb Blood Gas 11.0 (L) gm/dL CERNER MILLENNIUM Comment: Total Hemoglobin (in gm/dL) ?Based on [employer] Hematology ran ges: ?Age ?Referen ce Range [...] Organization Address City/State/ZIP Code Phon e Number [place] [phone] CERNER MILLENNIUM POCT Glucose [...] Address City/State/ZIP Code Phon e Number [address] CERNER MILLENNIUM POCT Glucose (06/17/2013 6:43 PM EST) athologist Signature POC Glucose 155 60 - 199 CERNER mg/dL [facility] Comment: Supplemental ranges: <110 mg/dL before meals <200 mg/dL all other times of the day Specimen Anatomical Collection Method Collection Time Receive d Time (Source) Location / / Volume Laterality Blood specimen 06/17/2013 6:43 PM 013 6:43 (specimen) EST PM EST Tammy Mccann MD POINT OF CARE TEST ORDERABLE S Performing Organization Address City/[facility]/ZIP Code Phon e Number [address] CERNER MILLENNIUM Lactic acid, plasma (06/17/2013 6:15 PM EST) athologist Signature Lactate 0.5 0.5 - 2.2 CERNER mmol/L [facility] Specimen Anatomical Collection Method Collection Time Receive d Time (Source) Location / / Volume Laterality Blood specimen 06/17/2013 6:15 PM 013 6:19 (specimen) EST PM EST Resulting Agency Comment Spec In Lab Tammy Mccann MD CHEMISTRY ORDERABLES Performing Organization Address City/State/[place] [address] CERNER MILLENNIUM (ABNORMAL) BLOOD [...] Comment: Total Hemoglobin (in gm/dL) ?Based on [employer] Hematology ran ges: ?Age ?Referen ce Range [...] Mccann MD CHEMISTRY ORDERABLES Performing Organization Address City/[facility] [place] [address] CERNER MILLENNIUM (ABNORMAL) Calcium [...] Mccann MD CHEMISTRY ORDERABLES Performing Organization Address City/[facility]/[place] [address] CERNER MILLENNIUM Phosphorus (06/17/2013 [...] Address City/State/ZIP Code Phon e Number [address] CERNER MILLENNIUM (ABNORMAL) Magnesium (06/17/2013 5:45 PM EST) athologist Signature Magnesium 0.55 (L) 0.69 - 1.07 CERNER mmol/L [facility] Specimen Anatomical Collection Method Collection Time Receive d Time (Source) Location / / Volume Laterality Blood specimen 06/17/2013 5:45 PM 013 5:53 (specimen) EST PM EST Resulting Agency Comment Spec In Lab Tammy Mccann MD CHEMISTRY ORDERABLES Performing Organization Address City/[facility]/ZIP Code Phon e Number [address] CERNER MILLENNIUM (ABNORMAL) [...] of Diabetes Mellitus, Position Statement from the [place] [employer]. ??Diabete s Care, Volume 33, [...] Organization Address City/State/ZIP Code Phon e Number [place] [phone] CERNER MILLENNIUM POCT Glucose [...] Organization Address City/State/[place] [address] CERNER MILLFres[facility] Care Fort WayneIUM POCT Glucose (06/17/2013 4:11 PM EST) P athologist Signature POC Glucose 191 60 - 199 CERNER mg/dL [employer] Comment: Supplemental ranges: <110 mg/dL before meals <200 mg/dL all other times of the day Specimen Anatomical Collection Method Collection Time Receive d Time (Source) Location / / Volume Laterality Blood specimen 06/17/2013 4:11 PM 013 4:11 (specimen) EST PM EST Tammy Mccann MD POINT OF CARE TEST ORDERABLE S Performing Organization Address City/State/[place] [address] CERNER [facility] CT chest WO contrast (06/17/2013 3:37 PM [...] Glucose 165 60 - 199 CERNER mg/dL [facility] Comment: Supplemental ranges: <110 mg/dL before meals <200 mg/dL all other times of the day Specimen Anatomical Collection Method Collection Time Receive d Time (Source) Location / / Volume Laterality Blood specimen 06/17/2013 2:48 PM 013 2:48 (specimen) EST PM EST Tammy Mccann MD POINT OF CARE TEST ORDERABLE S Performing Organization Address City/State/[place] [address] CERNER MILLENNIUM (ABNORMAL) Potassium (06/17/2013 2:30 PM EST) athologist Signature Potassium 5.6 (H) 3.5 - 5.0 CERNER mmol/L [facility] Comment: Please note: ??Patients with WBC [...] Address City/State/ZIP Code Phon e Number [address] CERNER MILLENNIUM (ABNORMAL) POCT Glucose (06/17/2013 2:14 PM EST) athologist Signature POC Glucose 211 (H) 60 - 199 CERNER mg/dL [facility] Comment: Supplemental ranges: <110 mg/dL before meals <200 mg/dL all other times of the day Specimen Anatomical Collection Method Collection Time Receive d Time (Source) Location / / Volume Laterality Blood specimen 06/17/2013 2:14 PM 013 2:14 (specimen) EST PM EST Tammy Mccann MD POINT OF CARE TEST ORDERABLE S Performing Organization Address City/State/[place] [address] CERNER MILLENNIUM (ABNORMAL) POCT Glucose (06/17/2013 1:02 PM EST) athologist Signature POC Glucose 209 (H) 60 - 199 CERNER mg/dL [facility] Comment: Supplemental ranges: <110 mg/dL before meals <200 mg/dL all other times of the day Specimen Anatomical Collection Method Collection Time Receive d Time (Source) Location / / Volume Laterality Blood specimen 06/17/2013 1:02 PM 013 1:02 (specimen) EST PM EST Tammy Mccann MD POINT OF CARE TEST ORDERABLE S Performing Organization Address City/[facility]/ZIP Code Phon e Number [address] [facility] (ABNORMAL) POCT Glucose (06/17/2013 11:12 AM EST) athologist Signature POC Glucose 223 (H) 60 - 199 CERNER mg/dL [facility] Comment: Supplemental ranges: <110 mg/dL before meals <200 mg/dL all other times of the day Specimen Anatomical Collection Method Collection Time Receive d Time (Source) Location / / Volume Laterality Blood specimen 06/17/2013 11:12 3 (specimen) AM EST 11:12 AM EST Tammy Mccann MD POINT OF CARE TEST ORDERABLE S Performing Organization Address City/[facility]/ZIP Code Phon e Number [address] [facility] Tacrolimus level (06/17/2013 11:10 AM EST) athologist [facility] Tacrolimus Lvl 8.1 ng/mL [facility] Comment: Trough therapeutic: 5-15 ng/mL Specimen Anatomical Collection Method Collection Time Receive d Time (Source) Location / / Volume Laterality Blood specimen 06/17/2013 11:10 3 8:12 (specimen) AM EST AM EST Resulting Agency Comment Spec In Lab Tammy Mcacnn MD CHEMISTRY ORDERABLES Performing Organization Address City/[facility]/ZIP Code Phon e Number [address] [facility] Lower Respiratory Culture Tracheal Aspirate (06/17/2013 10:48 AM EST) Component Value Ref Test Analysis Performed At [facility] gist Range Method Time Signature Lower CERNER Respiratory ? Patient Name: LEROY DAILEY ?Ordered By: TAMMY MCCANN [facility] Culture ? MR#: [id number] ?LOC: ??ICUS ? /Sex: ??1955 (58 years), [...] Organization Address City/State/[place] [address] HOLLI MÉNDEZ (ABNORMAL) POCT [...] CARE TEST ORDERABLE S Performing Organization Address City/[facility]/[place] [address] CERNER MILLENNIUM (ABNORMAL) Potassium [...] Mccann MD CHEMISTRY ORDERABLES Performing Organization Address City/[facility]/ZIP Code Phon e Number [address] CERNER MILLENNIUM POCT [...] CARE TEST ORDERABLE S Performing Organization Address City/[facility]/ZIP Code Phon e Number [address] CERNER MILLENNIUM (ABNORMAL) [...] Address City/State/ZIP Code Phon e Number [address] CERNER MILLENNIUM (ABNORMAL) [...] Mccann MD HEMATOLOGY ORDERABLES Performing Organization Address [facility] e Number [address] CERNER MILLENNIUM Vancomycin, [...] Buckner MD CHEMISTRY ORDERABLES Performing Organization Address [facility] [place] [address] CERNER MILLENNIUM (ABNORMAL) CBC [...] 125 (L) 145 - 370 x10(3)/mcL CERNER CA LLENNIUM RDWSD 55.0 (H) 35.0 - 46.0 [...] Organization Address City/State/ZIP Code Phon e Number [place] [phone] CERNER MILLENNIUM (ABNORMAL) Basic [...] Mccann MD CHEMISTRY ORDERABLES Performing Organization Address City/[facility]/ZIP Code Phon e Number [address] CERNER MILLENNIUM POCT Glucose (06/17/2013 2:53 AM EST) athologist Signature POC Glucose 165 60 - 199 CERNER mg/dL [facility] Comment: Supplemental ranges: <110 mg/dL before meals <200 mg/dL all other times of the day Specimen Anatomical Collection Method Collection Time Receive d Time (Source) Location / / Volume Laterality Blood specimen 06/17/2013 2:53 AM 013 2:53 (specimen) EST AM EST Tammy Mccann MD POINT OF CARE TEST ORDERABLE S Performing Organization Address City/[facility]/ZIP Code Phon e Number [address] CERNER MILLENNIUM EKG [...] 425 ms MUSE SYSTEM (Bezet) Calculated P [place] 4 degrees MUSE SYSTEM Calculated R [place] -13 degrees MUSE SYSTEM Calculated T [place] 58 degrees MUSE SYSTEM INTERPRETATION Normal sinus [...] Glucose 129 60 - 199 CERNER mg/dL [facility] Comment: Supplemental ranges: <110 mg/dL before meals <200 mg/dL all other times of the day Specimen Anatomical Collection Method Collection Time Receive d Time (Source) Location / / Volume Laterality Blood specimen 06/17/2013 1:11 AM 013 1:11 (specimen) EST AM EST Tammy Mccann MD POINT OF CARE TEST ORDERABLE S Performing Organization Address City/State/[place] [address] CERNER [facility] ([facility]NORMAL) Potassium (06/17/2013 12:15 AM EST) athologist Signature Potassium 6.4 3.5 - 5.0 CERNER (Critical) mmol/L [facility] Comment: Called by: RACHAEL, Read back by: [...] Mccann MD CHEMISTRY ORDERABLES Performing Organization Address City/[facility]/ZIP Code Phon e Number [address] CERNER MILLENNIUM POCT [...] CARE TEST ORDERABLE S Performing Organization Address City/[facility]/ZIP Code Phon e Number [address] CERNER MILLENNIUM POCT [...] Address City/State/ZIP Code Phon e Number [address] CERNER MILLENNIUM POCT [...] CARE TEST ORDERABLE S Performing Organization Address City/[facility]/[place] [address] CERNER [facility] XR abdomen 1 view (06/16/2013 9:47 PM [...] Glucose 119 60 - 199 CERNER mg/dL [facility] Comment: Supplemental ranges: <110 mg/dL before meals <200 mg/dL all other times of the day Specimen Anatomical Collection Method Collection Time Receive d Time (Source) Location / / Volume Laterality Blood specimen 06/16/2013 9:44 PM 013 9:44 (specimen) EST PM EST Tammy Mccann MD POINT OF CARE TEST ORDERABLE S Performing Organization Address City/[facility]/[place] [address] CERNER [facility] POCT Glucose (06/16/2013 9:08 PM EST) athologist [...] CARE TEST ORDERABLE S Performing Organization Address City/[facility]/ZIP Code Phon e Number [address] CERNER MILLENNIUM POCT [...] CARE TEST ORDERABLE S Performing Organization Address City/[facility]/[place] [address] [facility] (ABNORMAL) Potassium (06/16/2013 7:50 PM EST) athologist Signature Potassium 5.8 (H) 3.5 - 5.0 CERNER mmol/L [facility] Comment: Please note: ??Patients with WBC [...] Mccann MD CHEMISTRY ORDERABLES Performing Organization Address City/[facility]/[place] [address] CERNER MILLENNIUM Tacrolimus level (06/16/2013 [...] Address City/State/ZIP Code Phon e Number [address] CERNER MILLENNIUM POCT [...] CARE TEST ORDERABLE S Performing Organization Address City/[facility]/ZIP Code Phon e Number [address] CERNER MILLENNIUM POCT [...] Organization Address City/State/[place] [address] CERNER MILLENNIUM POCT Glucose [...] CARE TEST ORDERABLE S Performing Organization Address City/[facility] Phon e Number [address] CERNER MILLENNIUM POCT [...] CARE TEST ORDERABLE S Performing Organization Address City/[facility] Code Phon e Number [address] CERNER MILLENNIUM Potassium [...] Mccann MD CHEMISTRY ORDERABLES Performing Organization Address City/[facility]/[place] [address] CERNER MILLENNIUM POCT Glucose [...] Address City/State/ZIP Code Phon e Number [address] CERNER MILLENNIUM POCT Glucose (06/16/2013 2:34 PM EST) athologist Signature POC Glucose 197 60 - 199 CERNER mg/dL [facility] Comment: Supplemental ranges: <110 mg/dL before meals <200 mg/dL all other times of the day Specimen Anatomical Collection Method Collection Time Receive d Time (Source) Location / / Volume Laterality Blood specimen 06/16/2013 2:34 PM 013 2:34 (specimen) EST PM EST Tammy Mccann MD POINT OF CARE TEST ORDERABLE S Performing Organization Address City/State/ZIP Code Phon e Number [address] CERNER MILLENNIUM (ABNORMAL) POCT Glucose (06/16/2013 1:11 PM EST) athologist Signature POC Glucose 299 (H) 60 - 199 CERNER mg/dL [facility] Comment: Supplemental ranges: <110 mg/dL before meals <200 mg/dL all other times of the day Specimen Anatomical Collection Method Collection Time Receive d Time (Source) Location / / Volume Laterality Blood specimen 06/16/2013 1:11 PM 013 1:11 (specimen) EST PM EST Tammy Mccann MD POINT OF CARE TEST ORDERABLE S Performing Organization Address City/State/[place] [address] CERNER MILLENNIUM EKG 12 [...] 432 ms MUSE SYSTEM (Bezet) Calculated P [place] 63 degrees MUSE SYSTEM Calculated R [place] -21 degrees MUSE SYSTEM Calculated T [place] 56 degrees MUSE SYSTEM INTERPRETATION Normal sinus [...] 7.26 CERNER (Critical) MILLENNIUM Comment: Noted by surgical instrument mechanic. pCO2 Art 38 mmHg CERNER MILLENNIUM pO2 Art 209 (H) mmHg CERNER MILLENNIUM HCO3 Art 16.6 (L) mmol/L CERNER MILLENNIUM BE Art -10.6 (L) mmol/L CERNER MILLENNIUM Hgb Blood Gas 11.0 (L) gm/dL HOLLI BALLARDIU M Comment: Total Hemoglobin (in gm/dL) ?Based on [employer] [facility] [employer] Hematology ran ges: ?Age ?Referen ce Range [...] Organization Address City/State/[place] [address] CERNER MILLENNIUM (ABNORMAL) POCT [...] Address City/State/ZIP Code Phon e Number [address] [facility] M[facility] (ABNORMAL) Beta Hydroxybutyrate (06/16/2013 12:00 PM [...] Address City/State/ZIP Code Phon e Number [address] CERNER MILLENNIUM (ABNORMAL) Potassium (06/16/2013 12:00 PM EST) athologist Signature Potassium 5.4 (H) 3.5 - 5.0 CERNER mmol/L MILLENNIUM Comment: result rechecked- [facility] Please note: ??Patients with WBC >100,00 0 [...] Mccann MD CHEMISTRY ORDERABLES Performing Organization Address City/[facility]/ZIP Code Phon e Number [address] CERNER MILLENNIUM (ABNORMAL) POCT Glucose (06/16/2013 11:17 AM EST) P athologist Signature POC Glucose 270 (H) 60 - 199 CERNER mg/dL [facility] Comment: Supplemental ranges: <110 mg/dL before meals <200 mg/dL all other times of the day Specimen Anatomical Collection Method Collection Time Receive d Time (Source) Location / / Volume Laterality Blood specimen 06/16/2013 11:17 3 (specimen) AM EST 11:17 AM EST Tammy Mccann MD POINT OF CARE TEST ORDERABLE S Performing Organization Address City/[facility]/ZIP Code Phon e Number [address] CERNER MILLENNIUM (ABNORMAL) POCT Glucose (06/16/2013 9:57 AM EST) P athologist Signature POC Glucose 294 (H) 60 - 199 CERNER mg/dL [facility] Comment: Supplemental ranges: <110 mg/dL before meals <200 mg/dL all other times of the day Specimen Anatomical Collection Method Collection Time Receive d Time (Source) Location / / Volume Laterality Blood specimen 06/16/2013 9:57 AM 013 9:57 (specimen) EST AM EST Tammy Mccann MD POINT OF CARE TEST ORDERABLE S Performing Organization Address City/[facility]/ZIP Code Phon e Number [address] CERNER MILLENNIUM XR [...] vascular hypertension. Clinical correlation. Impression Kathya Haddad PLANT OPERATIONS VICE PRESIDENT IMG DX ORDERABLES XR abdomen 1 view [...] not visualized on image. Impression Kathya Haddad PLANT OPERATIONS VICE PRESIDENT IMG DX ORDERABLES (ABNORMAL) POCT Glucose (06/16/2013 8:01 AM EST) P athologist Signature POC Glucose 289 (H) 60 - 199 CERNER mg/dL [facility] Comment: Supplemental ranges: <110 mg/dL before meals <200 mg/dL all other times of the day Specimen Anatomical Collection Method Collection Time Receive d Time (Source) Location / / Volume Laterality Blood specimen 06/16/2013 8:01 AM 013 8:01 (specimen) EST AM EST Tammy Mccann MD POINT OF CARE TEST ORDERABLE S Performing Organization Address City/State/ZIP Code [place] [address] CERNER MILLENNIUM (ABNORMAL) BLOOD GAS 2 ARTERIAL (06/16/2013 7:55 AM EST) athologist Signature pH Art 7.13 CERNER (Critical) MILLENNIUM Comment: Noted by surgical instrument mechanic. pCO2 Art 51 (Critical) mmHg HOLLI MILLENNIJanneth Ramirez Comment: Noted by surgical instrument mechanic. pO2 Art 194 (H) mmHg CERNER MILLENNIUM HCO3 Art 16.6 (L) mmol/L CERNER MILLENNIUM BE Art -12.6 (L) mmol/L CERNER MILLENNIUM Hgb Blood Gas 11.6 (L) gm/dL HOLLI Ramirez Comment: Total Hemoglobin (in gm/dL) ?Based on [employer] [facility] [employer] Hematology ran ges: ?Age ?Referen ce Range [...] mmol/L CERNER MILL ENNIUM Comment: Noted by surgical instrument mechanic. Please note: Patients with WBC >100,000 may [...] Organization Address City/State/[place] [address] CERNER MILLENNIUM (ABNORMAL) Differential, Automated (06/16/2013 7:00 AM EST) [facility] Method Time Signature Neutrophils % 74.7 (H) [...] 7:05 (specimen) EST AM EST Kathya Haddad PLANT OPERATIONS VICE PRESIDENT HEMATOLOGY ORDERABLES Performing Organization Address City/State/ZIP Code Phon e Number [address] [facility] Lactic acid, plasma (06/16/2013 7:00 AM EST) P athologist Signature Lactate 0.7 0.5 - 2.2 CERNER mmol/L MILLENNIUM Specimen Anatomical Collection Method Collection Time Receive d Time (Source) Location / / Volume Laterality Blood specimen 06/16/2013 7:00 AM 013 7:05 (specimen) EST AM EST Resulting Agency Comment Spec In Lab Kathya Haddad PLANT OPERATIONS VICE PRESIDENT CHEMISTRY ORDERABLES Performing Organization Address City/[facility]/ZIP Code Phon e Number [address] CERNER MILLENNIUM (ABNORMAL) Prothrombin Time (06/16/2013 7:00 AM EST) P athologist Signature PT 17.2 (H) 12.0 - 15.0 CERNER sec MILLENNIUM Comment: [facility] Transfusion Committee Guidelines: I NR less [...] Agency Comment Spec In Lab Kathya Haddad PLANT OPERATIONS VICE PRESIDENT HEMATOLOGY ORDERABLES Performing Organization Address City/State/ZIP Code Phon e Number [place] [id number] CERNER MILLENNIUM (ABNORMAL) Comprehensive [...] Total Bilirubin 1.2 0.2 - 1.3 mg/dL HOLLI M ILLENNIUM Bili, Direct 0.8 (H) 0.0 [...] Organization Address City/State/[place] [address] CERNER DOUGLASENNIUM (ABNORMAL) CBC [...] EST Resulting Agency Comment Spec In Lab Katyha Haddad CRNA HEMATOLOGY ORDERABLES Performing Organization Address City/State/[place] [address] [facility] Surgical Pathology Report (06/16/2013 5:46 AM EST) Component Value Ref Test Analysis Performed At [facility] gist Range Method Time Signature Surgical CERNER Pathology ? [facility] Report ? Provider: ?? TAMMY MCCANN ?Pt. Name: ?? ANAMIKA RLEROY ? Acc #: ?[id number] ?Pt. MRN: ?[id number] ? Col Date: ?? 06/16/20 13 ?/Sex: [...] Organization Address City/State/[place] [address] [facility] Specimen to Pathology (surgical or derm) [...] Organization Address City/State/[place] [address] CERNER MILLENNIUM (ABNORMAL) BLOOD GAS 2 ARTERIAL (06/16/2013 5:10 AM EST) P athologist Signature pH Art 7.22 CERNER (Critical) MILLENNIUM Comment: Noted by surgical instrument mechanic. pCO2 Art 53 (Critical) mmHg DELLANER MILLENNIU M Comment: Noted by surgical instrument mechanic. pO2 Art 134 (H) mmHg CERNER MILLENNIUM HCO3 Art 20.9 mmol/L CERNER MILLENNIUM BE Art -6.8 (L) mmol/L CERNER MILLENNIUM Hgb Blood Gas 11.6 (L) gm/dL DELLANER NELLIEIU M Comment: Total Hemoglobin (in gm/dL) ?Based on [employer] [facility] [employer] Hematology ran ges: ?Age ?Referen ce Range [...] Organization Address City/State/[place] [address] CERNER MILLENNIUM (ABNORMAL) Potassium (06/16/2013 3:49 AM EST) athologist Signature Potassium 6.2 3.5 - 5.0 CERNER (Critical) mmol/L MILLENNIUM Comment: Results rechecked. Called by: [facility], Read back by: Alondra Lino, Date/Time:06/16/13 [...] Organization Address City/State/[place] [address] [employer] XR chest routine PA & lateral (06/16/2013 [...] 438 ms MUSE SYSTEM (Bezet) Calculated P [place] 54 degrees MUSE SYSTEM Calculated R [place] -16 degrees MUSE SYSTEM Calculated T [place] 50 degrees MUSE SYSTEM INTERPRETATION Sinus rhythm [...] SYSTEM Blood culture (06/16/2013 2:00 AM EST) [facility] Method Time Signature Blood Culture CERNER ? Patient Name: LEROY DAILEY ?Ordered By: T[facility]MY MCCANN [facility] ? MR#: [id number] ?LOC: ??ICUS ? /Sex: ??1955 (58 years), [...] Organization Address City/State/[place] [address] CERNER MILLENNIUM (ABNORMAL) Differential, [...] Address City/State/ZIP Code Phon e Number [address] CERNER MILLENNIUM Antibody screen (06/16/2013 [...] MD BLOOD BANK ORDERABLES Performing Organization Address City/[facility]/[place] [address] [facility] ABO/Rh Typing (06/16/2013 1:45 AM EST) P athologist Signature ABORh Type O Pos CERNER [facility] Specimen Anatomical Collection Method Collection Time Receive d Time (Source) Location / / Volume Laterality Blood specimen 06/16/2013 1:45 AM 013 2:06 (specimen) EST AM EST Resulting Agency Comment Spec In Lab Tammy Mccann MD BLOOD BANK ORDERABLES Performing Organization Address City/[facility]/[place] [address] [facility] Gold Tube HOLD (06/16/2013 1:45 AM EST) P athologist Signature Gold Hold Sample in [facility] lab. [facility] Specimen Anatomical Collection Method Collection Time Receive d Time (Source) Location / / Volume Laterality Blood specimen 06/16/2013 1:45 AM 013 2:05 (specimen) EST AM EST Tammy Mccann MD CHEMISTRY ORDERABLES Performing Organization Address City/[facility]/[place] [address] [facility] Phosphorus (06/16/2013 1:45 AM EST) P athologist Signature Phosphorus 2.8 2.5 - 4.5 CERNER mg/dL [facility] Specimen Anatomical Collection Method Collection Time Receive d Time (Source) Location / / Volume Laterality Blood specimen 06/16/2013 1:45 AM 013 2:01 (specimen) EST AM EST Resulting Agency Comment Spec In Lab Tammy Mccann MD CHEMISTRY ORDERABLES Performing Organization Address City/[facility]/[place] [address] [facility] (ABNORMAL) Magnesium (06/16/2013 1:45 AM EST) athologist Signature Magnesium 0.58 (L) 0.69 - 1.07 CERNER mmol/L [facility] Specimen Anatomical Collection Method Collection Time Receive d Time (Source) Location / / Volume Laterality Blood specimen 06/16/2013 1:45 AM 013 2:01 (specimen) EST AM EST Resulting Agency Comment Spec In Lab Tammy Mccann MD CHEMISTRY ORDERABLES Performing Organization Address City/State/ZIP Code Phon e Number [address] [facility] Lactic acid, plasma (06/16/2013 1:45 AM EST) athologist Signature Lactate 0.8 0.5 - 2.2 CERNER mmol/L [facility] Specimen Anatomical Collection Method Collection Time Receive d Time (Source) Location / / Volume Laterality Blood specimen 06/16/2013 1:45 AM 013 2:02 (specimen) EST AM EST Resulting Agency Comment Spec In Lab Tammy Mccann MD CHEMISTRY ORDERABLES Performing Organization Address City/State/ZIP Code Phon e Number [address] [facility] (ABNORMAL) CMP w/fasting Glucose (06/16/2013 1:45 AM EST) athologist Signature Glucose 197 (H) 65 - 99 CERNER Fasting mg/dL [facility] Comment: ?Fasting* Glucose Interpretive C riteria [...] of Diabetes Mellitus, Position Statement from the [place] [employer]. ??Diabete s Care, Volume 33, [...] Organization Address City/State/[place] [address] CERNER MILLENNIUM (ABNORMAL) CBC [...] Address City/State/ZIP Code Phon e Number [place] [phone] [facility] Request for 2nd read CT abdomen & [...] intrapelvic process. ??No diverticulitis or appendicitis. Atrophic [place] kidneys with unremarkabl e appearing transplanted kidney [...] intrapelvic process. No diverticulitis or appendicitis. Atrophic [place] kidneys with unremarkabl e appearing transplanted kidney seen in left lower quadrant. Hepatosplenomegaly. Tammy Mccann MD IMG OUTSIDE INTERPRETATION O RDERABLES POCT Glucose (06/16/2013 12:59 AM EST) P athologist Signature POC Glucose 173 60 - 199 CERNER mg/dL [facility] Comment: Supplemental ranges: <110 mg/dL before meals <200 mg/dL all other times of the day Specimen Anatomical Collection Method Collection Time Receive d Time (Source) Location / / Volume Laterality Blood specimen 06/16/2013 12:59 3 (specimen) AM EST 12:59 AM EST Tammy Mccann MD POINT OF CARE TEST ORDERABLE S Performing Organization Address City/State/[place] [address] [facility] documented in this encounter Visit [...] RN)2120 (Given - Provider: Kim Sanchez, SHEILA) 0600 (Given - Provider: Jael Morin, RN ) 5,000 Units, Subcutaneous, EVERY 8 HOURS SCHEDULED, First dose on Lucie 06/21/13 at 1400, Until Discontinued, Routine hydrALAZINE (APRESOLINE) tablet 50 mg (CANCELED) 0836 (Given - Provider: Shandra Eddy RN)1245 (Given - Provider: Shandra Eddy, SHEILA)1713 (Given - Provider: Shandra Eddy RN)2045 (Given [...] RN)2044 (Given - Provider: Ruth Wallace RN) 0920 (Given - Provider: Shandra Eddy [...] SHEILA) 09 (Given - Provider: Shandra Eddy, SHEILA)2120 (Given - Provider: Kim Sanchez, SHEILA) 09 [...] Routine documented in this encounter Care Teams Weblogic Administrator Relationship Specialty Start Date End Date Dc Ibanez MD PCP - General 04/02/13 04/01/14 ANAMARIA [address] [place] [address] documented as of this encounter
--- OUTSIDE RECORDS SUMMARY | 2022-06-16 12:34 | XMS_ITS | Encounter Summary ---
:1955 Author Organization [facility] [place] [address] Care Team Providers Name Role Phone Dc Ibanez MD Primary Care Provider Reason for Visit Reason Comments Diabetes Encounter Details Date Type Department Care Team Description 04/02/2013 Office Visit Endocrinology at [facility] Donell Hernandez, Type II or unspecified type diabetes mellitus with neurological manifestations, uncontrolled (Primary Dx); [facility] Nasal sinus congestion; [facility] [place] [address] CENTER [phone] [address] 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 4. Bilateral fvdub-djo-crst-amputations - he is very eager to walk [...] Tyler Rojas MD [facility] Neurology [place], [place] [phone] (Wo rk) 06/29/2022 Appointment Cardiology Violetta Sanford M D [address] [address] (Wo rk) 06/30/2022 Infusion Hematology and Oncology 07/14/2022 Infusion Hematology and Oncology 07/28/2022 Infusion Hematology and Oncology 08/11/2022 Infusion Hematology and Oncology 08/16/2022 Office Visit Audiology Mindy Moody AUD [facility] AUDIOLOGY DEPT [place], [place] [address] (Wo rk) 11/04/2022 Office Visit Rheumatology Dante Freedman PA [facility] RHEUMATOLOGY [place], [place] [address] (Wo rk) documented as of [...] Hernandez MD CHEMISTRY ORDERABLES Performing Organization Address City/[facility] Code Phon e Number [address] CERNER [facility] LDL Cholesterol, Direct (04/02/2013 10:20 AM EDT) P athologist Signature LDL Chol 61 <=99 mg/dL CERNER Direct [facility] Comment: The National Cholesterol Education Progr am (NCEP) has set the following guidelines for LDL Cholesterol: Reference range: ?? Optimal: ?<100 mg/dL ?? Near Optimal/Above Optimal: ?? 100-1 29 mg/dL ?? Borderline high: ?130-159 mg/dL ?? High: ? 160-189 mg/dL ?? Very high: ?>cd=859 mg/dL SERENA 2001: 285(19):6154-9841 Specimen Anatomical Collection Method Collection Time Receive d Time (Source) Location / / Volume Laterality Blood specimen 04/02/2013 10:20 3 (specimen) AM EDT 10:25 AM EDT Resulting Agency Comment Spec In Lab Donell Hernandez MD CHEMISTRY ORDERABLES Performing Organization Address City/[facility]/[place] [address] CERNER MILLENNIUM (ABNORMAL) Creatinine (04/02/2013 10:20 AM EDT) athologist Signature Creatinine 1.55 (H) 0.80 - CERNER 1.50 mg/dL [facility] Comment: Please note that the pediatric reference intervals supplied above were not validated at [facility]. Results from pediatri c patients should be interpreted in conjunction to the patient's age, height and muscle mass. Estimated GFR 46 (L) >=60 DELLANER DOUGLASSHELDONERICKSON M Comment: This estimated GFR (eGFR) value [...] Address City/State/[place] [address] [facility] documented in this encounter Visit Diagnoses [...] uncontrolled documented in this encounter Care Teams Asic Verification Engineer Relationship Specialty Start Date End Date Dc Ibanez MD PCP - General 04/02/13 04/01/14 ANAMARIA [address] [place] [address] documented as of this encounter
--- OUTSIDE RECORDS SUMMARY | 2022-06-16 12:34 | XMS_ITS | Encounter Summary ---
:1955 Author Organization [facility] [place] [address] Care Team Providers Name Role Phone Dc Ibanez MD Primary Care Provider Encounter Details Date Type Department Care Team Description 05/24/2013 Telephone Endocrinology at [facility] Nazia Orozco, [facility] [place] [address] Social History Tobacco Use Types Packs/Day Years [...] I called Dr. Coughlin's office; Rose Marie, sleep tech, stated that nurses are not in today and MD. I read Dr. Hernandez's instructions, below, to [...] Letter received from Dr. Emmett Coughlin at [facility] re pt's upcoming colonoscopy: Mr. Torres [...] Tyler Rojas MD [facility] Neurology [place], [place] [phone] (Wo rk) 06/29/2022 Appointment Cardiology Violetta Sanford M D [address] [place] [address] (Wo rk) 06/30/2022 Infusion Hematology and Oncology 07/14/2022 Infusion Hematology and Oncology 07/28/2022 Infusion Hematology and Oncology 08/11/2022 Infusion Hematology and Oncology 08/16/2022 Office Visit Audiology Mindy Moody AUD [facility] AUDIOLOGY DEPT [place], [place] [address] (Wo rk) 11/04/2022 Office Visit Rheumatology Dante Freedman PA [facility] RHEUMATOLOGY [place], [place] [address] (Wo rk) documented as of this encounter Visit Diagnoses Not on filedocumented in this encounter Care Teams Telemarketer Relationship Specialty Start Date End Date Dc Ibanez MD PCP - General 04/02/13 04/01/14 ANAMARIA [address] [place] [address] documented as of this encounter
--- OUTSIDE RECORDS SUMMARY | 2022-06-16 12:34 | XMS_ITS | Encounter Summary ---
:1955 Author Organization [facility] Address [facility] [place] [address] Care Team Providers Name Role Phone Candido Jenkins MD Primary Care Provider Encounter Details Date Type Department Care Team Description 04/19/2012 Follow-Up Neurology at [facility] Angel Boyd MD Tremor, essential [facility] (Pr imary Dx) [place] [address] NEUROLOGY DEPT. [phone] [place] [id number] (Wo rk) Social History Tobacco Use Types [...] 11:50 AM EDT Copy: Candido Jenkins M.D. [facility] [address] [place] [address] I saw Leroy Torres today in follow [...] Neurology Tyler Rojas MD [facility] Neurology [place], [place] [address] ( gregg) 06/29/2022 Appointment Cardiology Violetta Sanford M D [facility] [address] [place] [address] (Oscar escobedo) 06/30/2022 Infusion Hematology and Oncology 07/14/2022 Infusion Hematology and Oncology 07/28/2022 Infusion Hematology and Oncology 08/11/2022 Infusion Hematology and Oncology 08/16/2022 Office Visit Audiology Mindy Moody AUD [facility] AUDIOLOGY DEPT [place], [place] [address] (Oscar escobedo) 11/04/2022 Office Visit Rheumatology Dante Freedman PA [facility] RHEUMATOLOGY [place], [place] [address] (Wo rk) documented as of this encounter Visit Diagnoses Diagnosis Tremor, essential - Primary Essential and other specified forms of t remor documented in this encounter Care Teams Patients Transporter Relationship Specialty Start Date End Date Candido Jenkins MD PCP - General 05/20/11 04/01/13 [address] [place] [address] documented as of this encounter
--- OUTSIDE RECORDS SUMMARY | 2022-06-16 12:34 | XMS_ITS | Encounter Summary ---
:1955 Author Organization [facility] Address [address] [place] [address] Care Team Providers Name Role Phone Candido Jenkins MD Primary Care Provider Reason for Visit Reason Comments Kidney Transplant Follow-up 02/29/2008 Encounter Details Date Type Department Care Team Description 03/05/2013 Follow-Up Solid Organ Transplant Alejo Garnett Transplanted kidney (Primary Dx); at [facility] MD Thang Need for prophylactic immunotherapy; [facility] Emmanuelle betes mellitus; [place] [address] TRANSPLANT SURGERY [phone] [place] [address] (Wo rk) Social History Tobacco Use Types [...] MD - 03/05/2013 11:23 AM EDT [facility] Transplant Nephrology Follow Up Leroy Torres [id number] PAST MEDICAL HX: ESRD secondary to [...] months 11/29/12 Yes Donell Hernandez MD Insulin [place], Disposable, (BD INSULIN PEN NEEDLE UF SHORT) 31 X 12/07 Ndle by Other route. 1 box= 100 [...] 31 x 12/07 Syrg 1 Device by [facility].(Non-Drug; Combo Route) route 2 times daily. 11/29/12 [...] months. Suki Rosario MD Nephrology Fellow Pager# [phone] I examined the patient, reviewed all of the above findings and assessment of Dr. Rosario and formulated the recommendations which accurately reflect mine. documented in this encounter Plan of Treatment Upcoming Encounters Date Type Specialty Care Team Description 06/16/2022 Infusion Hematology and Oncology 06/21/2022 Office Visit Neurology Tyler Rojas MD [facility] Neurology [place], [place] [phone] (Wo rk) 06/29/2022 Appointment Cardiology Violetta Sanford M D [address] [place] [address] (Wo rk) 06/30/2022 Infusion Hematology and Oncology 07/14/2022 Infusion Hematology and Oncology 07/28/2022 Infusion Hematology and Oncology 08/11/2022 Infusion Hematology and Oncology 08/16/2022 Office Visit Audiology Mindy Moody AUD [facility] AUDIOLOGY DEPT [place], [place] [address] (Wo rk) 11/04/2022 Office Visit Rheumatology Dante Freedman PA [facility] RHEUMATOLOGY [place], [place] [address] (Wo rk) Scheduled Orders Name [...] Garnett MD HEMATOLOGY ORDERABLES Performing Organization Address City/[facility]/ZIP Code Phon e Number [address] CERNER MILLENNIUM Vitamin B12 (03/05/2013 [...] Organization Address City/State/ZIP Code Phon e Number [address] CERNER MILLENNIUM (ABNORMAL) Iron and TIBC (03/05/2013 10:05 AM EDT) athologist Signature Iron 34 (L) 45 - [...] Performing Organization Address City/State/ZIP [place] [address] CERNER MILLENNIUM (ABNORMAL) Hemoglobin A1c (03/05/2013 10:05 AM EDT) Analysis Performed At [facility] Time Signature Hemoglobin A1C 8.0 (H) 4.3 - 6.1 CERNER % MILLENNIUM Comment: The [place] Diabetes Association (ADA) has stated that HbA1c [...] 1:S11 -S66. Est Avg Gluc 183 mg/dL [facility] Comment: eAG equivalents for HbA1c percentages: HbA1c(%) ?eAG(mg/dL) 6.0 ?126 6.5 ?140 7.0 ?154 7.5 ?169 8.0 ?183 8.5 ?197 9.0 ?212 9.5 ?226 10.0 ? 240 Limitations: The eAG calculation has not been validated on women, individuals below 18 years old and above 70 years old, and individuals with hemoglobinopathies. Additional resources are available on [facility] ADA website: ??http://professional.diabetes.org/gluc osecalculator.aspx Scooby MALDONADO, Nba J, Sydnee R, et al. ??Tr anslating the A1C assay into estimated average glucose values. ??Diabetes Care 2008:31(8):4310-4582. Specimen Anatomical Collection Method Collection Time Receive d Time (Source) Location / / Volume Laterality Blood specimen 03/05/2013 10:05 3 (specimen) AM EDT 10:14 AM EDT Resulting Agency Comment Spec In Lab Alejo Garnett MD CHEMISTRY ORDERABLES Performing Organization Address City/[facility]/ZIP [facility] [place] Phon [place] Number [address] CERNER MILLENNIUM Folate, serum (03/05/2013 10:05 AM EDT) athologist Signature Folate Lvl >20.0 4.6 - 34.8 CERNER ng/mL MILLENNIUM Specimen Anatomical Collection Method Collection Time Receive d Time (Source) Location / / Volume Laterality Blood specimen 03/05/2013 10:05 3 (specimen) AM EDT 10:14 AM EDT Resulting Agency Comment Spec In Lab Alejo Garnett MD CHEMISTRY ORDERABLES Performing Organization Address City/[facility]/ZIP [facility] [place] Phon [place] Number [address] CERNER MILLENNIUM Ferritin (03/05/2013 10:05 AM EDT) athologist Signature Ferritin 102 30 - 400 CERNER ng/mL MILLENNIUM Comment: Pediatric reference ranges not verified at [facility], interpret with caution. Reference ranges for females greater tristan n 50 years of age approach values for men, i.e., 30-400 ng/mL. Specimen Anatomical Collection Method Collection Time Receive d Time (Source) Location / / Volume Laterality Blood specimen 03/05/2013 10:05 3 (specimen) AM EDT 10:14 AM EDT Resulting Agency Comment Spec In Lab Alejo Garnett MD CHEMISTRY ORDERABLES Performing Organization Address City/[facility]/ZIP Code Phon e Number [address] [facility] (ABNORMAL) VIT D Total Evaluation (03/05/2013 10:05 AM EDT) P athologist Signature 25-OH Vit D 26 (L) 30 - 100 CERNER Total ng/mL [facility] Comment: Deficient <10 ng/mL Insufficient 10 [...] Garnett MD CHEMISTRY ORDERABLES Performing Organization Address City/[facility]/ZIP Code Phon e Number [address] [facility] ([facility] PTH (03/05/2013 10:05 AM EDT) P athologist Signature PTH 107 (H) 15 - 65 CERNER pg/mL [facility] Specimen Anatomical Collection Method Collection Time Receive d Time (Source) Location / / Volume Laterality Blood specimen 03/05/2013 10:05 3 (specimen) AM EDT 10:14 AM EDT Resulting Agency Comment Spec In Lab Alejo Garnett MD CHEMISTRY ORDERABLES Performing Organization Address City/State/[place] [address] CERNER MILLENNIUM 1,25-dihydroxycholecalciferol (03/05/2013 10:05 AM EDT) athologist Signature Vit D 1,25 23 18 - 64 CERNER pg/mL MILLENNIUM Comment: Test Performed by: [place] [id number] Director Music: Narayan richards III, M.D. Specimen Anatomical Collection Method Collection Time Receive d Time (Source) Location / / Volume Laterality Blood specimen 03/05/2013 10:05 3 1:01 (specimen) AM EDT PM EDT Resulting Agency Comment Spec In Lab Alejo Garnett MD CHEMISTRY ORDERABLES Performing Organization Address City/[facility]/ZIP Code Phon e Number [address] CERNER MILLENNIUM Tacrolimus level (03/05/2013 10:05 AM EDT) athologist [...] Organization Address City/State/ZIP Code Phon e Number [address] CERNER MILLENNIUM (ABNORMAL) Uric acid (03/05/2013 10:05 AM EDT) [...] Organization Address City/State/ZIP Code Phon e Number [address] CERNER MILLENNIUM Phosphorus (03/05/2013 10:05 AM EDT) athologist Signature Phosphorus 2.7 2.5 - 4.5 CERNER mg/dL MILLENNIUM Specimen Anatomical Collection Method Collection Time Receive d Time (Source) Location / / Volume Laterality Blood specimen 03/05/2013 10:05 3 (specimen) AM EDT 10:14 AM EDT Resulting Agency Comment Spec In Lab Alejo Garnett MD CHEMISTRY ORDERABLES Performing Organization Address City/[facility]/ZIP Code Phon e Number [address] CERNER MILLENNIUM Magnesium (03/05/2013 10:05 AM EDT) athologist Signature Magnesium 0.74 0.69 - 1.07 CERNER mmol/L MILLENNIUM Specimen Anatomical Collection Method Collection Time Receive d Time (Source) Location / / Volume Laterality Blood specimen 03/05/2013 10:05 3 (specimen) AM EDT 10:14 AM EDT Resulting Agency Comment Spec In Lab Alejo Garnett MD CHEMISTRY ORDERABLES Performing Organization Address City/[facility]/ZIP Code Phon e Number [address] CERNER MILLENNIUM (ABNORMAL) Lipid panel (fasting) (03/05/2013 10:05 AM EDT) athologist Signature Chol, Total 114 <=199 mg/dL CERNER MILLENNIUM Comment: Recommendations of the NCEP Adult Treatm ent Panel for the following risk cutoff thresholds for the [place] populatio n: Desirable: <200 mg/dL Borderline High: 200-239 mg/dL High: > or = 240 mg/dL Triglycerides 228 (H) <=149 mg/dL CERNER MILLENN IUM Comment: Reference Range: Normal triglycerides: ??<150 mg/dL Borderline high: ??150-199 mg/dL High: ??200-499 mg/dL Very high: ??>il=030 mg/dL SERENA 2001; 285(19):4070-9647 HDL 21 (L) >=40 mg/dL HOLLI BALLARDIUM Comment: Reference range: ??Low HDL: ?? < 40 mg/dL ??Normal: ?40-60 mg/dL ??Desirable: > 60 mg/dL SERENA 2001; 285(19):9296-7265 LDL Cholesterol 47 <=99 mg/dL HOLLI JASON Comment: Reference range: ?? Optimal: ?<100 mg/dL ?? Near Optimal/Above Optimal: ?? 100-1 29 mg/dL ?? Borderline high: ?130-159 mg/dL ?? High: ? 160-189 mg/dL ?? Very high: ?>fy=650 mg/dL SERENA 2001: 285(19):0478-6393 Chol/HDL Ratio 5.4 ratio HOLLI BALLARDI UM Comment: A Cholesterol to HDL ratio below 4:1 is desirable. ??Studies suggest that increased CAD risk occurs at ratios abov e 5 for females and above 6 for men. ? [place] Heart Association ??(htt p://www.americanheart.org) ? Edna Int Med, 1994; 121:641 ? AM J Med, 1998; 105(1A):48S Specimen Anatomical Collection Method Collection Time Receive d Time (Source) Location / / Volume Laterality Blood specimen 03/05/2013 10:05 3 (specimen) AM EDT 10:14 AM EDT Resulting Agency Comment Spec In Lab Alejo Garnett MD CHEMISTRY ORDERABLES Performing Organization Address City/State/[place] [address] HOLLI MÉNDEZ (ABNORMAL) Reticulocyte Count (03/05/2013 10:05 AM EDT) [facility] gist Method Time Signature Retic Ct [...] City/State/ZIP Code Phon e Number [place] [phone] [address]OS[address] CERNER MILLENNIUM (ABNORMAL) CBC [...] HEMATOLOGY ORDERABLES Performing Organization Address City/State/ZIP [place] [address] CERNER MILLENNIUM (ABNORMAL) CMP w/fasting Glucose (03/05/2013 10:05 AM EDT) athologist Signature Glucose 332 (H) 65 - [...] of Diabetes Mellitus, Position Statement from the [place] Diabetes Association. ??Diabete s Care, Volume 33, [...] Anion Gap 10 5 - 15 mmol/L [facility] MILLENNIU M Calcium 9.3 8.5 - 10.5 mg/dL [facility] OMKAR NIUM Total Protein 7.9 6.4 - 8.3 gm/dL [facility] MIL LENNIUM Albumin 3.4 3.2 - 5.2 gm/dL [facility] MILLENN IUM AST 17 0 - 39 unit/L [facility] MILLENNIU M ALT 22 0 - 55 unit/L [facility] MILLENNIU M Alk Phos 137 (H) 40 - 120 unit/L [facility] MILLENN IUM Total Bilirubin 0.5 0.2 - 1.3 mg/dL [facility] M ILLENNIUM Bili, Direct 0.2 0.0 - 0.3 mg/dL [facility] MILL ENNIUM Estimated GFR 44 (L) >=60 [facility] MILLENNIU M Comment: This estimated GFR (eGFR) [...] City/State/ZIP Code Phon e Number [place] [phone] HOSPITAL LAB[address] [facility] NELLIEIUM BK Quant Urine Result (03/05/2013 10:03 AM EDT) Component Value Ref Test Analysis Performed At [facility] Range Method Time Signature BKV Urine Not Detected [facility] Result [facility] BKV Urine BK Virus Urine Result Interpretation [facility] Result: BK Virus Not Detected log concentration: Not detected Assay Range: urine: 3.04-9.04 log copies/mL (1.1x10^3 - 1.1x10^9 copies/mL ) Results are reported as log copies/mL. ??Changes of less than 1.0 log between serial samples may not be clinically significant. Methods: Quantitative real-time polymerase chain reaction (PCR) with of viral DNA isolated from urine was performed using [employer] BKV (ASR) reagents and the [employer] 7500 Fast Real-Time PCR System. In addition, the PCR product sequence is confirmed using physical properties (melt curve analysis). This test was developed and its performance determined by the [facility] Molecular Pathology Laboratory. It [...] Organization Address City/State/ZIP Code Phon e Number [address] CERNER MILLENNIUM Protein/Creatinine Ratio, urine (03/05/2013 10:03 AM EDT) athologist Signature U Creatinine 48 mg/dL CERNER [...] Organization Address City/State/ZIP Code Phon e Number [address] CERNER MILLENNIUM Phosphorus, urine, random (03/05/2013 10:03 AM EDT) P athologist Signature U Phosphorus 30.7 mg/dL CERNER MILLENNIUM Specimen Anatomical Collection Method Collection Time Receive d Time (Source) Location / / Volume Laterality Urine specimen 03/05/2013 10:03 3 (specimen) AM EDT 10:08 AM EDT Resulting Agency Comment Spec In Lab Alejo Garnett MD URINE ORDERABLES Performing Organization Address City/[facility]/ZIP Code Phon e Number [address] CERNER MILLENNIUM Calcium Creatinine [...] Garnett MD URINE ORDERABLES Performing Organization Address City/[facility]/ZIP Code Phon e Number [address] CERNER MILLENNIUM Creatinine, urine, random (03/05/2013 10:03 AM EDT) P athologist Signature U Creatinine 48 mg/dL CERNER MILLENNIUM Specimen Anatomical Collection Method Collection Time Receive d Time (Source) Location / / Volume Laterality Urine specimen 03/05/2013 10:03 3 (specimen) AM EDT 10:08 AM EDT Resulting Agency Comment Spec In Lab Alejo Garnett MD URINE ORDERABLES Performing Organization Address City/[facility]/ZIP Code Phon e Number [address] CERNER MILLENNIUM (ABNORMAL) Urinalysis with microscopic (03/05/2013 10:03 AM EDT) [facility] gist Method Time Signature Glucose UA 300 [...] Appearance UA Clear Clear CERNER MILLENNIUM Spec [place] UA 1.006 1.002 - CERNER 1.030 MILLENNIUM [...] Organization Address City/State/[place] [address] [facility] documented in this encounter Visit Diagnoses Diagnosis Transplanted kidney - Primary Kidney replaced by transplant Need for prophylactic immunotherapy Diabetes mellitus Type II or unspecified type diabetes fredo litus without mention of complication, not stated as uncontrolled Morbid obesity documented in this encounter Care Teams Skidder Runner Relationship Specialty Start Date End Date Candido Jenkins MD PCP - General 05/20/11 04/01/13 [address] [place] [address] documented as of this encounter
--- OUTSIDE RECORDS SUMMARY | 2022-06-16 12:34 | XMS_ITS | Encounter Summary ---
:1955 Author Organization [facility] [place] [address] Care Team Providers Name Role Phone Candiod Jenkins MD Primary Care Provider Reason for Visit Reason Onset Date Comments Medication Refill 11/17/2012 Encounter Details Date Type Department Care Team Description 11/17/2012 Refill Solid Organ Transplant Karen Chino, Transplanted kidney at 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 (Primary Dx) [facility] [place] [address] TRANSPLANT SURGERY [phone] [place], [place] [address] (Wo rk) Social History Tobacco [...] Rojas MD [facility] [place] [phone] (Wo rk) 06/29/2022 Appointment Cardiology Violetta Sanford M D [address] [place], [place] [address] (Wo rk) 06/30/2022 Infusion Hematology and Oncology 07/14/2022 Infusion Hematology and Oncology 07/28/2022 Infusion Hematology and Oncology 08/11/2022 Infusion Hematology and Oncology 08/16/2022 Office Visit Audiology Mindy Moody AUD [facility] AUDIOLOGY [place], [place] [address] (Wo rk) 11/04/2022 Office Visit Rheumatology Dante Freedman, PA [facility] RHEUMATOLOGY [place], [place] [address] (Wo rk) documented as of this encounter Visit Diagnoses Diagnosis Transplanted kidney - Primary Kidney replaced by transplant documented in this encounter Care Teams Drilling Field Specialist Relationship Specialty Start Date End Date Candido Jenkins MD PCP - General 05/20/11 04/01/13 [address] [place] [address] documented as of this encounter
--- OUTSIDE RECORDS SUMMARY | 2022-06-16 12:34 | XMS_ITS | Encounter Summary ---
:1955 Author Organization [facility] [place] [address] Care Team Providers Name Role Phone Dc Ibanez MD Primary Care Provider Reason for Visit Reason Comments Other Encounter Details Date Type Department Care Team Description 05/28/2013 Telephone Solid Organ Transplant at [place]my [place], [place] [address] [place] [address] [phone] Social History Tobacco Use Types Packs/Day Years [...] 2013 11:13 AM ------ Message from: JENS SWEELL Created: TueMay 28, 2013 9:28 AM Contact: His pharmacy gave him generic Cellcept - mycophenylate and generic Prograf - tacrolimus. Is it okayto take? Please call. Valentin, Ama Patient was called and told that [...] Tyler Rojas MD [facility] Neurology [place], [place] [phone] (Wo rk) 06/29/2022 Appointment Cardiology Violetta Sanford M D [address] [place], [place] [id number] (Wo rk) 06/30/2022 Infusion Hematology and Oncology 07/14/2022 Infusion Hematology and Oncology 07/28/2022 Infusion Hematology and Oncology 08/11/2022 Infusion Hematology and Oncology 08/16/2022 Office Visit Audiology Mindy Moody AUD [facility] AUDIOLOGY DEPT [place], [place] [address] (Wo rk) 11/04/2022 Office Visit Rheumatology Dante Freedman PA [facility] RHEUMATOLOGY [place], [place] [address] (Wo rk) documented as of this encounter Visit Diagnoses Not on filedocumented in this encounter Care Teams Tap Puller Relationship Specialty Start Date End Date Dc Ibanez MD PCP - General 04/02/13 04/01/14 [address] [place], [place] [address] documented as of this encounter
--- OUTSIDE RECORDS SUMMARY | 2022-06-16 12:34 | XMS_ITS | Encounter Summary ---
:1955 Author Organization [facility] [place] [address] Care Team Providers Name Role Phone Candido Jenkins MD Primary Care Provider Encounter Details Date Type Department Care Team Description 10/23/2012 External Results Solid Organ Luanne Blakely kidney; Transplant at [facility] Monica B Need for [place] [phone] Social History Tobacco Use Types Packs/Day Years [...] Rojas MD [facility] Neurology [place], [place] [phone] (Wo rk) 06/29/2022 Appointment Cardiology Violetta Sanford M D [facility] [address] [place], [place] [address] (Wo rk) 06/30/2022 Infusion Hematology and Oncology 07/14/2022 Infusion Hematology and Oncology 07/28/2022 Infusion Hematology and Oncology 08/11/2022 Infusion Hematology and Oncology 08/16/2022 Office Visit Audiology Mindy Moody AUD [facility] AUDIOLOGY DEPT [place], [place] [address] (Wo rk) 11/04/2022 Office Visit Rheumatology Dante Freedman PA [facility] RHEUMATOLOGY [place], [place] [address] (Wo [...] immunotherapy documented in this encounter Care Teams Almond Sorter Relationship Specialty Start Date End Date Candido Jenkins MD PCP - General 05/20/11 04/01/13 [address] [place] [address] documented as of this encounter
--- OUTSIDE RECORDS SUMMARY | 2022-06-16 12:34 | XMS_ITS | Encounter Summary ---
:1955 Author Organization [facility] [place] [address] Care Team Providers Name Role Phone Candido Jenkins MD Primary Care Provider Reason for Visit Reason Comments Diabetes Encounter Details Date Type Department Care Team Description 08/29/2012 Office Visit Endocrinology at [facility] Donell Hernandez, Nasal sinus congestion (Prim tiffany Dx); [facility] MD MALDONADO neuro manif type II, uncontrolled; [facility] DM eye manif type II, uncont rolled; [place] [address] MALDONADO renal manif type II, uncontrolled; [phone] ENDOCRINOLOGY Hypertension; DEPT. Morbid obesity; [place] [phone] S/P bilateral BKA (below knee amputation [...] :2011 last Cr:today last lipid panel:2011 regular lawn mower:no special shoes:no flu shot :yes pneumovax: 2011 [...] Rojas MD [facility] [address] [place], [place] [phone] (Wo rk) 06/29/2022 Appointment Cardiology Violetta Sanford M D [address] [place] [address] (Wo rk) 06/30/2022 Infusion Hematology and Oncology 07/14/2022 Infusion Hematology and Oncology 07/28/2022 Infusion Hematology and Oncology 08/11/2022 Infusion Hematology and Oncology 08/16/2022 Office Visit Audiology Mindy Moody AUD [facility] AUDIOLOGY [place], [place] [address] (Wo rk) 11/04/2022 Office Visit Rheumatology Dante Freedman PA [facility] RHEUMATOLOGY [place], [place] [address] (Wo rk) documented as of this encounter Results (ABNORMAL) Creatinine, serum (11/29/2012 11:18 AM EDT) athologist Signature Creatinine 1.76 (H) 0.80 - CERNER 1.50 mg/dL [facility] Comment: Please note that the pediatric reference intervals supplied above were not validated at [facility]. Results from pediatri c patients should be interpreted in conjunction to the patient's age, height and muscle mass. Estimated GFR 40 (L) >=60 DELLANER NEL Ramirez Comment: This [...] / Volume Laterality Blood specimen 11/29/2012 11:18 201 3 (specimen) AM EDT 11:39 AM EDT Resulting Agency Comment Spec In Lab Donell Hernandez MD CHEMISTRY ORDERABLES Performing Organization Address City/State/ZIP Code Phyllis OQUENDO [place] [phone] [address] CERNER MILLENNIUM (ABNORMAL) Hemoglobin A1c (11/29/2012 11:18 AM EDT) Analysis Performed At [facility] Time Signature Hemoglobin A1C 6.8 (H) 4.3 - 6.1 CERNER % MILLENNIUM Comment: The [place] Diabetes Association (ADA) has stated that HbA1c [...] 1:S11 -S66. Est Avg Gluc 148 mg/dL [facility] Comment: eAG equivalents for HbA1c percentages: [...] into estimated average glucose values. ??Diabetes Care 2008:31(8):9464-6751. Specimen Anatomical Collection Method Collection Time Receive d Time (Source) Location / / Volume Laterality Blood specimen 11/29/2012 11:18 3 (specimen) AM EDT 11:39 AM EDT Resulting Agency Comment Spec In Lab Donell Hernandez MD CHEMISTRY ORDERABLES Performing Organization Address City/State/[place] [address] [facility] documented in this encounter Visit Diagnoses [...] knee documented in this encounter Care Teams Firebrick Layer Relationship Specialty Start Date End Date Candido Jenkins MD PCP - General 05/20/11 04/01/13 [address] [place] [address] documented as of this encounter
--- OUTSIDE RECORDS SUMMARY | 2022-06-16 12:34 | XMS_ITS | Encounter Summary ---
:1955 Author Organization [facility] Address [address] [address] Care Team Providers Name Role Phone Candido Jenkins MD Primary Care Provider Reason for Visit Reason Comments Follow-up Encounter Details Date Type Department Care Team Description 11/29/2012 Office Visit Endocrinology at [facility] Donell Hernandez, Type II or unspecified type diabetes mellitus with neurological manifestations, uncontrolled (Primary Dx); [facility] Type II or unspecified type diabetes fredo litus with ophthalmic manifestations, uncontrolled; [facility] Type II or unspecified type diabetes mellitus with renal manifestations, uncontrolled; [place] [address]ENTER Hypertension; [phone] ENDOCRINOLOGY Nasal sinus co ngestion; DEPT. Diabetes mellitus; [place], [place] [address] Renal transplant disorder; [phone] S/P BKA (below knee amputation) (Work) Social [...] has curbed his eating. 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 Regimen Victoza 1.8 daily Basal NPH [...] :2011 last Cr:today last lipid panel:2011 regular rehab/pre vocational counselor:no special shoes:no flu shot :yes pneumovax: 2011 acei yes Asa Yes statin yes Vitals 11/29/2012 08/29/2012 BP 139/63 140/66 BP Location Patient Position Pulse 75 76 Temp Temp src Resp Height to cm. Height in inches Weight (Persian) 331 lbs 6 oz 334 lbs Weight [...] Tyler Rojas MD [facility] Neurology [place], [place] [address] (Wo rk) 06/29/2022 Appointment Cardiology Violetta Sanford M D [address] [place] [address] (Wo rk) 06/30/2022 Infusion Hematology and Oncology 07/14/2022 Infusion Hematology and Oncology 07/28/2022 Infusion Hematology and Oncology 08/11/2022 Infusion Hematology and Oncology 08/16/2022 Office Visit Audiology Mindy Moody AUD [facility] AUDIOLOGY DEPT [place], [place] [address] (Wo rk) 11/04/2022 Office Visit Rheumatology Dante Freedman PA [facility] RHEUMATOLOGY [place], [place] [address] (Wo rk) documented as of [...] (08/06/2013 12:52 PM EST) Analysis Performed At [facility] Time Signature Hemoglobin A1C 7.5 (H) <=5.6 % [facility] Comment: As of 2013 the methodology [...] Mellitus, Diabetes Care 2013; 36: Suppl. 1, S67-05 Est Avg Gluc 169 mg/dL [facility] Comment: eAG equivalents for HbA1c percentages: [...] into estimated average glucose values. ??Diabetes Care 2008:31(8):8469-8671. Specimen Anatomical Collection Method Collection Time Receive d Time (Source) Location / / Volume Laterality Blood specimen 08/06/2013 12:52 4 1:02 (specimen) PM EST PM EST Resulting Agency Comment Spec In Lab Donell Hernandez MD CHEMISTRY ORDERABLES Performing Organization Address City/[facility]/ZIP Code Phon e Number [address] [facility] TSH (04/02/2013 10:20 AM EDT) P athologist Signature TSH 1.62 0.27 - 4.20 CERNER mcIU/mL [facility] Specimen Anatomical Collection Method Collection Time Receive d Time (Source) Location / / Volume Laterality Blood specimen 04/02/2013 10:20 3 (specimen) AM EDT 10:25 AM EDT Resulting Agency Comment Spec In Lab Donell Hernandez MD CHEMISTRY ORDERABLES Performing Organization Address City/[facility] Code Phon e Number [address] [facility] LDL Cholesterol, Direct (04/02/2013 10:20 AM EDT) P athologist Signature LDL Chol 61 <=99 mg/dL CERNER Direct [facility] Comment: The National Cholesterol Education Progr am (NCEP) has set the following guidelines for LDL Cholesterol: Reference range: ?? Optimal: ?<100 mg/dL ?? Near Optimal/Above Optimal: ?? 100-1 29 mg/dL ?? Borderline high: ?130-159 mg/dL ?? High: ? 160-189 mg/dL ?? Very high: ?>dr=190 mg/dL SERENA 2001: 285(19):8827-7446 Specimen Anatomical Collection Method Collection Time Receive d Time (Source) Location / / Volume Laterality Blood specimen 04/02/2013 10:20 3 (specimen) AM EDT 10:25 AM EDT Resulting Agency Comment Spec In Lab Donell Hernandez MD CHEMISTRY ORDERABLES Performing Organization Address [facility]/[place]IP [place] [address] CERNER MILLENNIUM (ABNORMAL) Creatinine (04/02/2013 10:20 AM EDT) athologist Signature Creatinine 1.55 (H) 0.80 - CERNER 1.50 mg/dL MILL[facility]NIUM Comment: Please note that the pediatric reference intervals supplied above were not validated at [facility]. Results from pediatri c patients should be interpreted in conjunction to the patient's age, height and muscle mass. Estimated GFR 46 (L) >=60 CERNER MILLENNIU M Comment: This [...] Hernandez MD CHEMISTRY ORDERABLES Performing Organization Address City/[facility]/[place]IP [place] [address] CERNER MILLENNIUM (ABNORMAL) Creatinine, serum (11/29/2012 11:18 AM EDT) athologist Signature Creatinine 1.76 (H) 0.80 - CERNER 1.50 mg/dL [facility] Comment: Please note that the pediatric reference intervals supplied above were not validated at [facility]. Results from pediatri c patients should be interpreted in conjunction to the patient's age, height and muscle mass. Estimated GFR 40 (L) >=60 CERNER MILLENNIU M Comment: This [...] Resulting Agency Comment Spec In Lab Donell Heranndez MD CHEMISTRY ORDERABLES Performing Organization Address City/State/[place]IP [place] [address] HOLLI MÉNDEZ (ABNORMAL) Hemoglobin A1c (11/29/2012 11:18 AM EDT) Analysis Performed At [facility] Time Signature Hemoglobin A1C 6.8 (H) 4.3 - 6.1 HOLLI Moore MILLENNIUM Comment: The [place] Diabetes Association (ADA) has stated that HbA1c [...] with hemoglobinopathies. Additional resources are available on [facility] ADA website: ??http://professional.diabetes.org/gluc osecalculator.aspx Scooby MALDONADO, Nba Gilbert, Sydnee R, et al. ??Tr anslating the A1C assay into estimated average glucose values. ??Diabetes Care 2008:31(8):0089-1284. Specimen Anatomical Collection Method Collection Time Receive d Time (Source) Location / / Volume Laterality Blood specimen 11/29/2012 11:18 3 (specimen) AM EDT 11:39 AM EDT Resulting Agency Comment Spec In Lab Donell Hernandez MD CHEMISTRY ORDERABLES Performing Organization Address City/State/ZIP Code Phon e Number [place] [phone] HOSPITAL LABORATORY [facility] documented in this encounter Visit Diagnoses Diagnosis [...] knee documented in this encounter Care Teams Technical Sales Representatives Relationship Specialty Start Date End Date Candido Jenkins MD PCP - General 05/20/11 04/01/13 [address] [place] [address] documented as of this encounter
--- OUTSIDE RECORDS SUMMARY | 2022-06-16 12:34 | XMS_ITS | Encounter Summary ---
:1955 Author Organization [facility] [place] [address] Care Team Providers Name Role Phone Dc Ibanez MD Primary Care Provider Reason for Visit Reason Comments Other Encounter Details Date Type Department Care Team Description 05/30/2013 Telephone Solid Organ Transplant at Tammy [place], [place] [address] [place] [address] [phone] Social History Tobacco Use Types Packs/Day Years [...] Tyler Rojas MD [facility] Neurology [place], [place] [address] (Wo rk) 06/29/2022 Appointment Cardiology Violetta Sanford M D [address] [place] [address] (Wo rk) 06/30/2022 Infusion Hematology and Oncology 07/14/2022 Infusion Hematology and Oncology 07/28/2022 Infusion Hematology and Oncology 08/11/2022 Infusion Hematology and Oncology 08/16/2022 Office Visit Audiology Mindy Moody AUD [facility] AUDIOLOGY DEPT [place], [place] [address] (Wo rk) 11/04/2022 Office Visit Rheumatology Dante Freedman PA [facility] RHEUMATOLOGY [place], [place] [address] (Wo rk) documented as of this encounter Visit Diagnoses Not on filedocumented in this encounter Care Teams Neighborhood Worker Relationship Specialty Start Date End Date cD Ibanez MD PCP - General 04/02/13 04/01/14 [address] [place] [address] documented as of this encounter
--- OUTSIDE RECORDS SUMMARY | 2022-06-16 12:34 | XMS_ITS | Encounter Summary ---
:1955 Author Organization [facility] Address [address] [place] [address] Care Team Providers Name Role Phone Candido Jenkins MD Primary Care Provider Encounter Details Date Type Department Care Team Description 06/28/2012 Office Visit Endocrinology at [facility] Donell Hardin, Diabetes mellitus (Primary D x); [facility] MD MALDONADO eye manif type II, uncontrolled; Drive [facility] History of renal transplant; [place] [address] C[address] Immunocompromised; [phone] ENDOCRINOLOGY S/P bilateral BKA (below knee amputation); DEPT. 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 Range 02/17/2011 11:36 06/04/2011 13:16 02/23/2012 09:53 03/17/2012 08:06 06/28/2012 08:49 Hemoglobin A1C Latest Range: 4.3-6.1 % 8.5 (H) 7.5 (H) 8.1 (H) 8.0 (H) 8.4 (H) Results for LEROY DAILEY ( ) as of 06/28/2012 10:33 Ref. Range 06/24/2011 04:18 06/24/2011 04:18 02/23/2012 09:53 03/17/2012 08:06 06/28/2012 08:49 Creatinine Latest Range: 0.80-1.50 mg/dL 2.02 (H) 2.02 (H) 1.86 (H) 1.83 (H) 1.90 (H) PROBLEMS: 1. Type 2 diabetes-Mr. Dailey still has poor diabetes control in the [...] at least 10 pounds. 2. Morbid obesity-Mr. Dailey has morbid obesity. He has been gaining weight rapidly. At the same time, he is about to trial a second [id number] prosthesis and trying learn to ambulate with [...] MD [facility] Neurology [place], [place] [address] (Oscar escobedo) 06/29/2022 Appointment Cardiology Violetta Sanford M D [address] [place] [address] (Oscar escobedo) 06/30/2022 Infusion Hematology and Oncology 07/14/2022 Infusion Hematology and Oncology 07/28/2022 Infusion Hematology and Oncology 08/11/2022 Infusion Hematology and Oncology 08/16/2022 Office Visit Audiology Mindy Moody AUD [facility] AUDIOLOGY DEPT [place], [place] [address] (Wo rk) 11/04/2022 Office Visit Rheumatology Dante Freedman PA [facility] RHEUMATOLOGY [place], [place] [address] (Wo rk) documented as of [...] (08/29/2012 10:49 AM EST) Analysis Performed At [facility] Time Signature Hemoglobin A1C 7.7 (H) [...] into estimated average glucose values. ??Diabetes Care 2008:31(8):7211-7958. Specimen Anatomical Collection Method Collection Time Receive d Time (Source) Location / / Volume Laterality Blood specimen 08/29/2012 10:49 3 (specimen) AM EST 10:55 AM EST Resulting Agency Comment Spec In Lab Donell Hernandez MD CHEMISTRY ORDERABLES Performing Organization Address City/State/[place] [address] CERNER MILLENNIUM (ABNORMAL) Creatinine, serum (08/29/2012 10:49 AM EST) athologist Signature Creatinine 1.62 (H) 0.80 - CERNER 1.50 mg/dL MILLENNIUM Comment: Please note that the pediatric reference intervals supplied above were not validated at [facility]. Results from pediatri c patients should be [...] Organization Address City/State/[place] [address] [facility] LDL Cholesterol, Direct (06/28/2012 8:49 AM EST) athologist Signature LDL Chol 67 <=99 mg/dL [facility] Comment: The National Cholesterol Education Progr am (NCEP) has set the following guidelines for LDL Cholesterol: Reference range: ?? Optimal: ?<100 mg/dL ?? Near Optimal/Above Optimal: ?? 100-1 29 mg/dL ?? Borderline high: ?130-159 mg/dL ?? High: ? 160-189 mg/dL ?? Very high: ?>lo=290 mg/dL SERENA 2001: 285(86):6282-7768 Specimen Anatomical Collection Method Collection Time Receive d Time (Source) Location / / Volume Laterality Blood specimen 06/28/2012 8:49 AM 012 9:08 (specimen) EST AM EST Resulting Agency Comment Spec In Lab Donell Hernandez MD CHEMISTRY ORDERABLES Performing Organization Address City/State/[place] [address] CERNER MILLENNIUM (ABNORMAL) Hemoglobin A1c (06/28/2012 8:49 AM EST) Analysis Performed At [facility] Time Signature Hemoglobin A1C 8.4 (H) [...] into estimated average glucose values. ??Diabetes Care 2008:31(8):7921-3340. Specimen Anatomical Collection Method Collection Time Receive d Time (Source) Location / / Volume Laterality Blood specimen 06/28/2012 8:49 AM 012 9:08 (specimen) EST AM EST Resulting Agency Comment Spec In Lab Donell Hernandez MD CHEMISTRY ORDERABLES Performing Organization Address City/State/[place] [address] CERNER MILLENNIUM (ABNORMAL) Creatinine, serum (06/28/2012 8:49 AM EST) athologist Signature Creatinine 1.90 (H) 0.80 - CERNER 1.50 mg/dL MILLENNIUM Comment: Please note that the pediatric reference intervals supplied above were not validated at [facility]. Results from pediatri c patients should be [...] Organization Address City/State/[place] [address] [facility] [...] gain documented in this encounter Care Teams Strategy Consultant Relationship Specialty Start Date End Date Candido Jenkins MD PCP - General 05/20/11 04/01/13 [address] [place] [address] documented as of this encounter
--- OUTSIDE RECORDS SUMMARY | 2022-06-16 12:34 | XMS_ITS | Encounter Summary ---
:1955 Author Organization [facility] [place] [address] Care Team Providers Name Role Phone Candido Jenkins MD Primary Care Provider Reason for Visit Reason Comments Right Leg Pain s/p Right BKA 06/21/11 Encounter Details Date Type Department Care Team Description 03/17/2012 Follow-Up Orthopaedics at [facility], DR CRISTIAN [place] below knee, L; [facility] Giovana tyler [place] [address] Diabetes mellitus with neuro mendy [phone] Social History Tobacco Use Types Packs/Day Years Used Date Smoking Tobacco: Former Cigarettes 2 20 Quit : 01/19/1993 Smokeless Tobacco: Never Alcohol Use Standard Drinks/Week Comments No 0 [...] Neurology Tyler Rojas MD [facility] Neurology [place] [address] ([facility]) 06/29/2022 Appointment Cardiology Violetta Sanford M D [address] [place] [address] ([facility]) 06/30/2022 Infusion Hematology and Oncology 07/14/2022 Infusion Hematology and Oncology 07/28/2022 Infusion Hematology and Oncology 08/11/2022 Infusion Hematology and Oncology 08/16/2022 Office Visit Audiology Mindy Moody AUD [facility] AUDIOLOGY DEPT [place], [place] [address] (Wo rk) 11/04/2022 Office Visit Rheumatology Dante Freedman PA [facility] RHEUMATOLOGY [place], [place] [address] ([facility]) documented as of this encounter Visit Diagnoses Diagnosis Amputee, below knee, L Lower limb amputation, below knee Diabetes mellitus with neuropathy Type II or unspecified type diabetes fredo litus with neurological manifestations, not stated as uncontrolled documented in this encounter Care Teams Manufacturer Representative Relationship Specialty Start Date End Date Candido Jenkins MD PCP - General 05/20/11 04/01/13 [address] [place] [address] documented as of this encounter
--- OUTSIDE RECORDS SUMMARY | 2022-06-16 12:34 | XMS_ITS | Encounter Summary ---
:1955 Author Organization [facility] [place] [address] Care Team Providers Name Role Phone Candido Jenkins MD Primary Care Provider Reason for Visit Reason Comments Wound Check Right BKA Encounter Details Date Type Department Care Team Description 08/02/2012 Follow-Up Orthopaedics at [facility], DR CRISTIAN [place], below knee; [facility] Giovana tyler Delayed wound healing; [place] [address] Diabetes mellitus with neuro mendy [phone] Social History Tobacco Use Types Packs/Day Years [...] sacbbed over. He had his HbA1c done 12-5-12 and [...] Tyler Rojas MD [facility] Neurology [place], [place] [address] (Oscar escobedo) 06/29/2022 Appointment Cardiology Violetta Sanford M D [address] [place] [address] (Oscar escobedo) 06/30/2022 Infusion Hematology and Oncology 07/14/2022 Infusion Hematology and Oncology 07/28/2022 Infusion Hematology and Oncology 08/11/2022 Infusion Hematology and Oncology 08/16/2022 Office Visit Audiology Mindy Moody AUD [facility] AUDIOLOGY [place], [place] [address] (Wo rk) 11/04/2022 Office Visit Rheumatology Dante Freedman PA [facility] RHEUMATOLOGY [place], [place] [address] (Wo rk) documented as of this encounter Visit Diagnoses Diagnosis Amputee, below knee Lower limb amputation, below knee Delayed wound healing Open wound(s) (multiple) of unspecified site(s), complicated Diabetes mellitus with neuropathy Type II or unspecified type diabetes fredo litus with neurological manifestations, not stated as uncontrolled documented in this encounter Care Teams Personal Secretary Relationship Specialty Start Date End Date Candido Jenkins MD PCP - General 05/20/11 04/01/13 [address] [place] [address] documented as of this encounter
--- OUTSIDE RECORDS SUMMARY | 2022-06-16 12:34 | XMS_ITS | Encounter Summary ---
:1955 Author Organization [facility] [place] [address] Care Team Providers Name Role Phone Candido Jenkins MD Primary Care Provider Reason for Visit Reason Comments Wound Evaluation r bka 06/21/12 Encounter Details Date Type Department Care Team Description 08/29/2012 Follow-Up Orthopaedics at [facility], DR CRISTIAN Olsen, below knee; [facility] Lizzy Lopez, RN DEPT OF ORTHOPAEDICS Delayed wound healing; [place] [address] Diabetes mellitus with neuro mendy; [phone] Charcot's arthr opathy, diabetic, R; Amputee, below [...] eat less. He had his HbA1c done 12 and it was 8.4 w/ EAg of [...] Rojas MD [facility] Neurology [place], [place] [address] (Oscar escobedo) 06/29/2022 Appointment Cardiology Violetta Sanford M D [facility] [address] [place] [address] (Wo rk) 06/30/2022 Infusion Hematology and Oncology 07/14/2022 Infusion Hematology and Oncology 07/28/2022 Infusion Hematology and Oncology 08/11/2022 Infusion Hematology and Oncology 08/16/2022 Office Visit Audiology Mindy Moody AUD [facility] AUDI[facility] DEPT [place] [address] (Wo rk) 11/04/2022 Office Visit Rheumatology Dante Freedman PA [facility] RHEUMATOLOGY [place], [place] [address] (Wo rk) documented as of [...] (08/29/2012 10:49 AM EST) Analysis Performed At [facility] Time Signature Hemoglobin A1C 7.7 (H) 4.3 - 6.1 CERNER % MILLENNIUM Est Avg Gluc 174 mg/dL CERNER [facility] Comment: eAG equivalents for HbA1c percentages: HbA1c(%) ?eAG(mg/dL) 6.0 ?126 6.5 ?140 7.0 ?154 7.5 ?169 8.0 ?183 8.5 ?197 9.0 ?212 9.5 ?226 10.0 ? 240 Limitations: The eAG calculation has not been validated on women, individuals below 18 years old and above 70 years old, and individuals with hemoglobinopathies. Additional resources are available on [facility] ADA website: ??http://professional.diabetes.org/gluc osecalculator.aspx Reference: Scooby MALDONADO, Nba J, Sydnee R, et al. ??Tr anslating the A1C assay into estimated average glucose values. ??Diabetes Care 2008:31(8):1864-7495. Specimen Anatomical Collection Method Collection Time Receive d Time (Source) Location / / Volume Laterality Blood specimen 08/29/2012 10:49 3 (specimen) AM EST 10:55 AM EST Resulting Agency Comment Spec In Lab Donell Hernandez MD CHEMISTRY ORDERABLES Performing Organization Address City/State/[place] [address] HOLLI MÉNDEZ (ABNORMAL) Creatinine, serum (08/29/2012 10:49 AM EST) P athologist Signature Creatinine 1.62 (H) 0.80 - CERNER 1.50 mg/dL MILLENNIUM Comment: Please note that the pediatric reference intervals supplied above were not validated at [facility]. Results from pediatri c patients [...] Organization Address City/State/[place] [address] HOS[address]ITAL LABORAT[address] [facility] documented in this encounter Visit [...] uncontrolled documented in this encounter Care Teams Canvas Worker Relationship Specialty Start Date End Date Candido Jenkins MD PCP - General 05/20/11 04/01/13 [address] [place] [address] documented as of this encounter
--- OUTSIDE RECORDS SUMMARY | 2022-06-16 12:34 | XMS_ITS | Encounter Summary ---
:1955 Author Organization [facility] [place] [address] Care Team Providers Name Role Phone Dc Ibanez MD Primary Care Provider Encounter Details Date Type Department Care Team Description 05/24/2013 Notes Only Solid Organ Transplant at [place], [place] [address] [place] [address] [phone] Social History Tobacco Use Types Packs/Day Years [...] Rojas MD [facility] Neurology [place], [place] [address] (Wo rk) 06/29/2022 Appointment Cardiology Violetta Sanford M D [address] [place] [address] (Wo rk) 06/30/2022 Infusion Hematology and Oncology 07/14/2022 Infusion Hematology and Oncology 07/28/2022 Infusion Hematology and Oncology 08/11/2022 Infusion Hematology and Oncology 08/16/2022 Office Visit Audiology Mindy Moody AUD [facility] AUDIOLOGY DEPT [place], [place] [address] (Wo rk) 11/04/2022 Office Visit Rheumatology Dante Freedman PA [facility] RHEUMATOLOGY [place], [place] [address] (Wo rk) documented as of this encounter Visit Diagnoses Not on filedocumented in this encounter Care Teams Biometric Screener Relationship Specialty Start Date End Date Dc Ibanez MD PCP - General 04/02/13 04/01/14 [address] [place] [address] documented as of this encounter
--- OUTSIDE RECORDS SUMMARY | 2022-06-16 12:34 | XMS_ITS | Encounter Summary ---
:1955 Author Organization [facility] [place] [address] Care Team Providers Name Role Phone Dc Ibanez MD Primary Care Provider Encounter Details Date Type Department Care Team Description 06/15/2013 Orders Only Solid Organ Transplant at Angel Evangelista MD [facility] Giovana [place] [address] [place] [address] [phone] (Wo rk) Social History Tobacco Use Types [...] Rojas MD [facility] Neurology [place], [place] [address] (Wo rk) 06/29/2022 Appointment Cardiology Violetta Sanford M D [address] [place], [place] [address] (Wo rk) 06/30/2022 Infusion Hematology and Oncology 07/14/2022 Infusion Hematology and Oncology 07/28/2022 Infusion Hematology and Oncology 08/11/2022 Infusion Hematology and Oncology 08/16/2022 Office Visit Audiology Mindy Moody AUD [facility] AUDIOLOGY DEPT [place], [place] [address] (Wo rk) 11/04/2022 Office Visit Rheumatology Dante Freedman PA [facility] RHEUMATOLOG[facility] [place], [place] [address] (Wo rk) Pending Results Name Type Priority Associated Diagnoses Date/Ti nv Film Library- Storage Imaging Routine 2012 12:[address] abdomen & pelvis documented as of this encounter Visit Diagnoses Not on filedocumented in this encounter Care Teams Monotype Machinist Relationship Specialty Start Date End Date Dc Ibanez MD PCP - General 04/02/13 04/01/14 [address] [place] [address] documented as of this encounter
--- OUTSIDE RECORDS SUMMARY | 2022-06-16 12:34 | XMS_ITS | Encounter Summary ---
:1955 Author Organization [facility] [place] [address] Care Team Providers Name Role Phone Dc Ibanez MD Primary Care Provider Encounter Details Date Type Department Care Team Description 04/09/2013 Telephone Orthopaedics at [facility] Narayan Roy Jr., [place] [facility] [place] [address] ORTHOPAEDIC SURGERY [phone] [place], [place] [address] (Wo rk) Social History Tobacco [...] 9:10 AM EDT Spoke with Amanda at [facility]. She states that she needs the CMN filled out correctly. I gave a copy of the faxed form with directions, per Amanda, to Dr. Roy. documented in this encounter Plan of Treatment Upcoming Encounters Date Type Specialty Care Team Description 06/16/2022 Infusion Hematology and Oncology 06/21/2022 Office Visit Neurology Tyler Rojas MD [facility] Dr Sofi [place], [place] [phone] (Wo rk) 06/29/2022 Appointment Cardiology Violetta Sanford M D [address] [place] [address] (Wo rk) 06/30/2022 Infusion Hematology and Oncology 07/14/2022 Infusion Hematology and Oncology 07/28/2022 Infusion Hematology and Oncology 08/11/2022 Infusion Hematology and Oncology 08/16/2022 Office Visit Audiology Mindy Moody, [facility] AUDIOLOGY DEPT [place], [place] [address] (Wo rk) 11/04/2022 Office Visit Rheumatology Dante Freedman PA [facility] RHEUMATOLOGY [place], [place] [address] (Wo rk) documented as of this encounter Visit Diagnoses Not on filedocumented in this encounter Care Teams Project Construction Manager Relationship Specialty Start Date End Date Dc Ibanez MD PCP - General 04/02/13 04/01/14 ANAMARIA [address] [facility] [place] [address] documented as of this encounter
--- OUTSIDE RECORDS SUMMARY | 2022-06-16 12:34 | XMS_ITS | Encounter Summary ---
:1955 Author Organization [place] [address] Care Team Providers Name Role Phone Candido Jenkins MD Primary Care Provider Reason for Visit Reason Comments Wound Check Right stump Encounter Details Date Type Department Care Team Description 04/19/2012 Follow-Up Orthopaedics at [facility], DR CRISTIAN Olsen, below knee, L; [facility] D rive Type II diabetes mellitus wi th renal manifestations; [place] [address] Diabetes mellitus with neuro mendy; [phone] Charcot's arthr opathy, diabetic, R; Delayed wound [...] Tyler Rojas MD [facility] Neurology [place], [place] [phone] (Wo rk) 06/29/2022 Appointment Cardiology Violetta Sanford M D [address] [place] [address] (Wo rk) 06/30/2022 Infusion Hematology and Oncology 07/14/2022 Infusion Hematology and Oncology 07/28/2022 Infusion Hematology and Oncology 08/11/2022 Infusion Hematology and Oncology 08/16/2022 Office Visit Audiology Mindy Moody, [facility] AUDIOLOGY [place], [place] [address] (Wo rk) 11/04/2022 Office Visit Rheumatology Dante Freedman, PA [facility] RHEUM[facility] [place], [place] [address] (Wo rk) documented [...] complicated documented in this encounter Care Teams Payroll Processor Relationship Specialty Start Date End Date Candido Jenkins MD PCP - General 05/20/11 04/01/13 [address] [place], [place] [address] documented as of this encounter
--- OUTSIDE RECORDS SUMMARY | 2022-06-16 12:34 | XMS_ITS | Encounter Summary ---
:1955 Author Organization [facility] [place] [address] Care Team Providers Name Role Phone Dc Ibanez MD Primary Care Provider Reason for Visit Reason Onset Date Comments Pneumonia 04/10/2013 Encounter Details Date Type Department Care Team Description 04/10/2013 Telephone Solid Organ Transplant [place] [address] Social History Tobacco Use Types Packs/Day [...] pt was seen in emergency room at [facility] and diagnosed with pneumonia. They gave [...] MD [facility] Neurology [place], [place] [address] (Wo rk) 06/29/2022 Appointment Cardiology Violetta Sanford M D [address] [place], [place] [address] (Wo rk) 06/30/2022 Infusion Hematology and Oncology 07/14/2022 Infusion Hematology and Oncology 07/28/2022 Infusion Hematology and Oncology 08/11/2022 Infusion Hematology and Oncology 08/16/2022 Office Visit Audiology Mindy Moody AUD [facility] AUDIOLOGY DEPT [place], [place] [address] (Wo rk) 11/04/2022 Office Visit Rheumatology Dante Freedman PA [facility] RHEUMATOLOGY [place], [place] [address] (Wo rk) documented as of this encounter Visit Diagnoses Not on filedocumented in this encounter Care Teams Work Force Advisor Relationship Specialty Start Date End Date Dc Ibanez MD PCP - General 04/02/13 04/01/14 ANAMARIA [address] [facility] [place] [address] documented as of this encounter
--- OUTSIDE RECORDS SUMMARY | 2022-06-16 12:34 | XMS_ITS | Encounter Summary ---
:1955 Author Organization [facility] [place] [address] Care Team Providers Name Role Phone Candido Jenkins MD Primary Care Provider Reason for Visit Reason Onset Date Comments Labs Only 03/17/2012 Encounter Details Date Type Department Care Team Description 03/17/2012 Telephone Endocrinology at [facility] Donell Hernandez MD Labs Only [facility] [place] [address] ENDOCRINOLOGY DEPT. [phone] [place], [place] [address] (Wo rk) Social History Tobacco [...] Tyler Rojas MD [facility] Dr Sofi [place], [place] [address] (Wo rk) 06/29/2022 Appointment Cardiology Violetta Sanford M D [address] [place] [address] (Wo rk) 06/30/2022 Infusion Hematology and Oncology 07/14/2022 Infusion Hematology and Oncology 07/28/2022 Infusion Hematology and Oncology 08/11/2022 Infusion Hematology and Oncology 08/16/2022 Office Visit Audiology Mindy Moody AUD [facility] AUDIOLOGY DEPT [place], [place] [address] (Wo rk) 11/04/2022 Office Visit Rheumatology Dante Freedman PA [facility] RHEUMATOLOGY [place], [place] [address] (Wo rk) documented as of [...] Organization Address City/State/[place] [address] [facility] (ABNORMAL) Creatinine, [...] muscle mass. Estimated GFR 38 (L) >=60 [facility] Comment: The National Kidney Disease Education [...] Organization Address City/State/ZIP Code Phon e Number [place] [id number] [facility] (ABNORMAL) Hemoglobin A1c (03/17/2012 8:06 AM EDT) Analysis Performed At [facility] Time Signature Hemoglobin A1C 8.0 (H) 4.3 - 6.1 [facility] Est Avg Gluc 183 mg/dL [facility] Comment: eAG equivalents for HbA1c percentages: HbA1c(%) ?eAG(mg/dL) 6.0 ?126 6.5 ?140 7.0 ?154 7.5 ?169 8.0 ?183 8.5 ?197 9.0 ?212 9.5 ?226 10.0 ? 240 Limitations: The eAG calculation has not been validated on women, individuals below 18 years old and above 70 years old, and individuals with hemoglobinopathies. Additional resources are available on [facility] ADA website: ??http://professional.diabetes.org/gluc osecalculator.aspx Reference: Scooby MALDONADO, Nba J, Sydnee R, et al. ??Tr anslating the A1C assay into estimated average glucose values. ??Diabetes Care 2008:31(8):9352-2069. Specimen Anatomical Collection Method Collection Time Receive d Time (Source) Location / / Volume Laterality Blood specimen 03/17/2012 8:06 AM 012 8:15 (specimen) EDT AM EDT Resulting Agency Comment Spec In Lab Donell Hernandez MD CHEMISTRY ORDERABLES Performing Organization Address City/State/ZIP Code Phon e Number [place] [phone] [facility] documented in this encounter Visit Diagnoses Diagnosis Diabetes mellitus - Primary Type II or unspecified type diabetes fredo litus without mention of complication, not stated as uncontrolled documented in this encounter Care Teams Transit Operations Supervisor Relationship Specialty Start Date End Date Candido Jenkins MD PCP - General 05/20/11 04/01/13 [address] [place] [address] documented as of this encounter
--- OUTSIDE RECORDS SUMMARY | 2022-06-16 12:34 | XMS_ITS | Encounter Summary ---
:1955 Author Organization [facility] [place] [address] Care Team Providers Name Role Phone Candido Jenkins MD Primary Care Provider Reason for Visit Reason Onset Date Comments Medication Refill 04/19/2012 Encounter Details Date Type Department Care Team Description 04/19/2012 Refill Solid Organ Transplant Karen Chino, Transplanted kidney at [facility]ER (Primary Dx) [facility] [place] [address] TRANSPLANT SURGERY [phone] [place], [place] [address] (Wo rk) Social History Tobacco [...] [facility] Neurology [place], [place] [address] (Wo rk) 06/29/2022 Appointment Cardiology Violetta Sanford M D [address] [place], [place] [address] (Wo rk) 06/30/2022 Infusion Hematology and Oncology 07/14/2022 Infusion Hematology and Oncology 07/28/2022 Infusion Hematology and Oncology 08/11/2022 Infusion Hematology and Oncology 08/16/2022 Office Visit Audiology Mindy Moody AUD [facility] AUDIOLOGY [place], [place] [address] (Wo rk) 11/04/2022 Office Visit Rheumatology Dante Freedman, PA [facility] RHEUMATOLOGY [place], [place] [address] (Wo rk) documented as of this encounter Visit Diagnoses Diagnosis Transplanted kidney - Primary Kidney replaced by transplant documented in this encounter Care Teams Direct Care Professional Relationship Specialty Start Date End Date Candido Jenkins MD PCP - General 05/20/11 04/01/13 [address] [place] [address] documented as of this encounter
--- OUTSIDE RECORDS SUMMARY | 2022-06-16 12:34 | XMS_ITS | Encounter Summary ---
:1955 Author Organization [facility] [address] Care Team Providers Name Role Phone Candido Jenkins MD Primary Care Provider Reason for Referral Physical Therapy (Routine) - Complete - Patient Will Schedule External Appt Specialty Diagnoses / Procedures Referred By Contact Refer red To Contact Physical Therapy Diagnoses S/P bilateral BKA (below knee amputation) [facility] Orthopaedics 3c [facility] [place] [address] Referral ID Status Reason Start Expiration Visits Visits Date Date Requested Authorized [id number] Complete - Evaluate and 06/28/2012 12/25/2012 1 1 Patient Will Treat Schedule External Appt Reason for Visit Reason Comments Wound Check s/p Right BKA 06/21/12 Encounter Details Date Type Department Care Team Description 06/28/2012 Follow-Up Orthopaedics at [facility], DR FOSTER S/P bilateral BKA (below kne e amputation) (Primary Dx); [facility] [place]'s arthropathy, diabe tic, R; [place] [address] Amputee, below knee, L; [phone] Delayed wound h ealing Social History Tobacco [...] thin fibrin. He had his HbA1c done 12-12-03 and it was 8.4 w/ EAg of [...] Rojas MD [facility] Neurology [place], [place] [address] (Wo rk) 06/29/2022 Appointment Cardiology Violetta Sanford M D [address] [place] [address] (Wo rk) 06/30/2022 Infusion Hematology and Oncology 07/14/2022 Infusion Hematology and Oncology 07/28/2022 Infusion Hematology and Oncology 08/11/2022 Infusion Hematology and Oncology 08/16/2022 Office Visit Audiology Mindy Moody AUD [facility] AUDIOLOGY [place], [place] [address] (Wo rk) 11/04/2022 Office Visit Rheumatology Dante Freedman PA [facility] RHEUMATOLOGY [place], [place] [address] (Wo rk) Scheduled Referrals Name [...] complicated documented in this encounter Care Teams Organ Grinder Relationship Specialty Start Date End Date Candido Jenkins MD PCP - General 05/20/11 04/01/13 [address] [place], [place] [address] documented as of this encounter
--- OUTSIDE RECORDS SUMMARY | 2022-06-16 12:34 | XMS_ITS | Encounter Summary ---
:1955 Author Organization [facility] [place] [address] Care Team Providers Name Role Phone Dc Ibanez MD Primary Care Provider Encounter Details Date Type Department Care Team Description 06/15/2013 Orders Only Solid Organ Transplant at Angel Evangelista MD [facility] Giovana tyler [place] [address] [place] [address] [phone] (Wo rk) Social History Tobacco Use Types [...] Rojas MD [facility] Neurology [place], [place] [address] (Wo rk) 06/29/2022 Appointment Cardiology Violetta Sanford M D [address] [place], [place] [address] (Wo rk) 06/30/2022 Infusion Hematology and Oncology 07/14/2022 Infusion Hematology and Oncology 07/28/2022 Infusion Hematology and Oncology 08/11/2022 Infusion Hematology and Oncology 08/16/2022 Office Visit Audiology Mindy Moody AUD [facility] AUDIOLOGY DEPT [place], [place] [address] (Wo rk) 11/04/2022 Office Visit Rheumatology Dante Freedman PA [facility] RHEUMATOLOGY [place], [place] [address] (Wo rk) Pending Results Name Type Priority Associated Diagnoses Date/Ti sd Film Library- Storage Imaging Routine 2012 11:01 PM EST only DX Chest documented as of this encounter Visit Diagnoses Not on filedocumented in this encounter Care Teams Machine Crater Relationship Specialty Start Date End Date Dc Ibanez MD PCP - General 04/02/13 04/01/14 [address] [place] [address] documented as of this encounter
--- OUTSIDE RECORDS SUMMARY | 2022-06-16 12:34 | XMS_ITS | Encounter Summary ---
:1955 Author Organization [facility] [place] [address] Care Team Providers Name Role Phone Candido Jenkins MD Primary Care Provider Reason for Visit Reason Comments Wound Evaluation r bka 06/21/12 Encounter Details Date Type Department Care Team Description 10/26/2012 Office Visit Orthopaedics at [facility], DR CRISTIAN Roblero's arthropathy, diabe tic, R (Primary Dx); [facility] D rive Amputee, below knee; [place] [address] Amputee, below knee, L; [phone] Type II diabete s mellitus with renal [...] holding there. He had his HbA1c done 12 and [...] Rojas MD [facility] Neurology [place], [place] [address] (Wo gregg) 06/29/2022 Appointment Cardiology Violetta Sanford M D [address] [place] [address] (Oscar escobedo) 06/30/2022 Infusion Hematology and Oncology 07/14/2022 Infusion Hematology and Oncology 07/28/2022 Infusion Hematology and Oncology 08/11/2022 Infusion Hematology and Oncology 08/16/2022 Office Visit Audiology Mindy Moody AUD [facility] AUDIOLOGY [place], [place] [address] (Wo rk) 11/04/2022 Office Visit Rheumatology Dante Freedman PA [facility] RHEUMATOLOGY [place], [place] [address] (Wo rk) documented as of [...] complicated documented in this encounter Care Teams Kettle Cleaner Relationship Specialty Start Date End Date Candido Jenkins MD PCP - General 05/20/11 04/01/13 [address] [place] [address] documented as of this encounter
--- OUTSIDE RECORDS SUMMARY | 2022-06-16 12:34 | XMS_ITS | Encounter Summary ---
:1955 Author Organization [facility] [address] Care Team Providers Name Role Phone Candido Jenkins MD Primary Care Provider Reason for Visit Reason Onset Date Comments Results 03/09/2012 Encounter Details Date Type Department Care Team Description 03/09/2012 Telephone Solid Organ Transpla nt at [facility] [place] [address] Social History Tobacco Use Types Packs/Day [...] Thank you, Karen 03/09/12 @ 11:40 A.M. watershed coordinator note: Received above message from Karen [...] the transplant team at . Sincerely, Lauren Goodman, plugman coordinatore Solid Organ Transplant Surgery documented in this encounter Plan of Treatment Upcoming Encounters Date Type Specialty Care Team Description 06/16/2022 Infusion Hematology and Oncology 06/21/2022 Office Visit Neurology Tyler Rojas MD [facility] Neurology [place], [place] [phone] (Oscar escobedo) 06/29/2022 Appointment Cardiology Violetta Sanford M D [address] [place] [address] (Oscar escobedo) 06/30/2022 Infusion Hematology and Oncology 07/14/2022 Infusion Hematology and Oncology 07/28/2022 Infusion Hematology and Oncology 08/11/2022 Infusion Hematology and Oncology 08/16/2022 Office Visit Audiology Mindy Moody AUD [facility] AUDIOLOGY DEPT [place], [place] [address] (Wo rk) 11/04/2022 Office Visit Rheumatology Dante Freedman PA [facility] RHEUMATOLOGY [place], [place] [address] (Wo rk) documented as of this encounter Visit Diagnoses Not on filedocumented in this encounter Care Teams Artificial Inseminator Relationship Specialty Start Date End Date Candido Jenkins MD PCP - General 05/20/11 04/01/13 [address] [place] [address] documented as of this encounter
--- OUTSIDE RECORDS SUMMARY | 2022-06-16 12:34 | XMS_ITS | Encounter Summary ---
:1955 Author Organization [place] [address] Care Team Providers Name Role Phone Candido Jenkins MD Primary Care Provider Encounter Details Date Type Department Care Team Description 03/23/2013 Telephone Orthopaedics at [facility] Narayan Roy Jr., MD [facility] nayeli [facility] [place] [address] ORTHOPAEDIC SURGERY [phone] [place], [place] [address] (Wo rk) Social History Tobacco [...] 03/23/2013 4:01 PM EDT Amanda called from [employer] called and stated that they need Dr. Roy to complete two sections on the Letter of Medical Necessity. I have sent down to see if he can complete via fax to [phone]. documented in this encounter Plan of Treatment Upcoming Encounters Date Type Specialty Care Team Description 06/16/2022 Infusion Hematology and Oncology 06/21/2022 Office Visit Neurology Tyler Rojas MD [facility] Dr Sofi [place], [place] [address] (Wo rk) 06/29/2022 Appointment Cardiology Violetta Sanford M D [address] [place] [address] (Wo rk) 06/30/2022 Infusion Hematology and Oncology 07/14/2022 Infusion Hematology and Oncology 07/28/2022 Infusion Hematology and Oncology 08/11/2022 Infusion Hematology and Oncology 08/16/2022 Office Visit Audiology Mindy Moody, [facility]I [facility] AUDIOLOGY DEPT [place], [place] [address] (Wo rk) 11/04/2022 Office Visit Rheumatology Dante Freedman, DA [facility] RHEUMATOLOGY [place], [place] [address] (Wo rk) documented as of this encounter Visit Diagnoses Not on filedocumented in this encounter Care Teams Bridge Toll Collector Relationship Specialty Start Date End Date Candido Jenkins MD PCP - General 05/20/11 04/01/[address] [place], [place] [address] documented as of this encounter
--- OUTSIDE RECORDS SUMMARY | 2022-06-16 12:34 | XMS_ITS | Encounter Summary ---
:1955 Author Organization [facility] Address [facility] [place] [address] Care Team Providers Name Role Phone Dc Ibanez MD Primary Care Provider Encounter Details Date Type Department Care Team Description 05/31/2013 Follow-Up Neurology at [facility] Angel Boyd MD Tremor, essential [facility] (Pr imary Dx) [place] [address] NEUROLOGY DEPT. [phone] [place] [address] (Wo rk) Social History Tobacco Use Types [...] Rojas MD [facility] Neurology [place], [place] [address] (Oscar escobedo) 06/29/2022 Appointment Cardiology Violetta Sanford M D [address] [place] [address] ( gregg) 06/30/2022 Infusion Hematology and Oncology 07/14/2022 Infusion Hematology and Oncology 07/28/2022 Infusion Hematology and Oncology 08/11/2022 Infusion Hematology and Oncology 08/16/2022 Office Visit Audiology Mindy Moody AUD [facility] AUDIOLOGY [place], [place] [address] (Oscar escobedo) 11/04/2022 Office Visit Rheumatology Dante Freedman PA [facility] RHEUMATOLOGY [place], [place] [address] (Wo rk) documented as of this encounter Visit Diagnoses Diagnosis Tremor, essential - Primary Essential and other specified forms of t remor documented in this encounter Care Teams Sales Representative Consultant Relationship Specialty Start Date End Date Dc Ibanez MD PCP - General 04/02/13 04/01/14 [address] [place] [address] documented as of this encounter
--- OUTSIDE RECORDS SUMMARY | 2022-06-16 12:34 | XMS_ITS | Encounter Summary ---
:1955 Author Organization [facility] [place] [address] Care Team Providers Name Role Phone Dc Ibanez MD Primary Care Provider Encounter Details Date Type Department Care Team Description 04/02/2013 Telephone Endocrinology at [facility] [place] [address] Social History Tobacco Use Types Packs/Day Years [...] Tyler Rojas MD [facility] Dr Farah [place], [place] [address] (Wo rk) 06/29/2022 Appointment Cardiology Violetta Sanford M D [address] [place] [address] (Wo rk) 06/30/2022 Infusion Hematology and Oncology 07/14/2022 Infusion Hematology and Oncology 07/28/2022 Infusion Hematology and Oncology 08/11/2022 Infusion Hematology and Oncology 08/16/2022 Office Visit Audiology Mindy Moody, WENDI [facility] AUDIOLOGY [place], [place] [address] (Wo rk) 11/04/2022 Office Visit Rheumatology Dante Freedman, PA [facility] RHEUMATOLOGY [place], [place] [address] (Wo rk) documented as of this encounter Visit Diagnoses Not on filedocumented in this encounter Care Teams Superintendent Radio Communications Relationship Specialty Start Date End Date Dc Ibanez MD PCP - General 04/02/13 04/01/14 [address] [place] [address] documented as of this encounter
--- OUTSIDE RECORDS SUMMARY | 2022-06-16 12:34 | XMS_ITS | Encounter Summary ---
:1955 Author Organization [facility] [place] [address] Care Team Providers Name Role Phone Candido Jenkins MD Primary Care Provider Reason for Visit Reason Onset Date Comments Medication Refill 06/05/2012 Encounter Details Date Type Department Care Team Description 06/05/2012 Refill Solid Organ Transplant Karen Chino, S/P kidney transplant at [facility]ER (Primary Dx) [facility] [place] [address] TRANSPLANT SURGERY [phone] [place], [place] [address] (Oscar rk) Social History Tobacco [...] Tyler Rojas MD [facility] Dr Farah [place], [place] [address] (Wo rk) 06/29/2022 Appointment Cardiology Violetta Sanford M D [address] [place], [place] [address] (Wo rk) 06/30/2022 Infusion Hematology and Oncology 07/14/2022 Infusion Hematology and Oncology 07/28/2022 Infusion Hematology and Oncology 08/11/2022 Infusion Hematology and Oncology 08/16/2022 Office Visit Audiology Mindy Moody AUD [facility] AUDIOLOGY [place], [place] [address] (Wo rk) 11/04/2022 Office Visit Rheumatology Dante Freedman, PA [facility] RHEUMATOLOGY [place], [place] [address] (Wo rk) documented as of this encounter Visit Diagnoses Diagnosis S/P kidney transplant - Primary Kidney replaced by transplant documented in this encounter Care Teams Green Chain Puller Relationship Specialty Start Date End Date Candido Jenkins MD PCP - General 05/20/11 04/01/13 [address] [place] [address] documented as of this encounter
--- OUTSIDE RECORDS SUMMARY | 2022-06-16 12:34 | XMS_ITS | Encounter Summary ---
:1955 Author Organization [facility] [place] [address] Care Team Providers Name Role Phone Dc Ibanez MD Primary Care Provider Reason for Visit Reason Comments Right Leg Pain Right BKA 06/21/12 Encounter Details Date Type Department Care Team Description 05/04/2013 Office Visit Orthopaedics at [facility], DR CRISTIAN Olsen, below knee; [facility] Giovana Olsen, below knee, [place] [address] Social History Tobacco Use Types Packs/Day [...] NAME: Leroy Torres AGE: 57 y.o. MR#: [id number] DATE OF VISIT: 05/04/2013 Case Date: 06/21/2011 [...] GAMINO JR at [facility] MAIN OR ROS: Denies fever, chills, [...] Rojas MD [facility] Neurology [place], [place] [phone] (Wo rk) 06/29/2022 Appointment Cardiology Violetta Sanford M D [address] [place] [address] (Wo rk) 06/30/2022 Infusion Hematology and Oncology 07/14/2022 Infusion Hematology and Oncology 07/28/2022 Infusion Hematology and Oncology 08/11/2022 Infusion Hematology and Oncology 08/16/2022 Office Visit Audiology Mindy Moody AUD [facility] AUDIOLOGY DEPT [place], [place] [address] (Wo rk) 11/04/2022 Office Visit Rheumatology Dante Freedman PA [facility] RHEUMATOLOGY [place], [place] [address] (Wo rk) documented as of this encounter Visit Diagnoses Diagnosis Amputee, below knee, L Lower limb amputation, below knee documented in this encounter Care Teams Archaeology Professor Relationship Specialty Start Date End Date Dc Ibanez MD PCP - General 04/02/13 04/01/14 [address] [place] [address] documented as of this encounter
--- OUTSIDE RECORDS SUMMARY | 2022-06-16 12:34 | XMS_ITS | Encounter Summary ---
:1955 Author Organization [facility] Address [address] [place] [address] Care Team Providers Name Role Phone Dc Ibanez MD Primary Care Provider Reason for Visit Reason Onset Date Comments Medication Refill 05/23/2013 Encounter Details Date Type Department Care Team Description 05/23/2013 Refill Neurology at [facility] Angel Boyd MD Tremor, essential [facility] (Pr imary Dx) [place] [address] NEUROLOGY DEPT. [phone] [place] [id number] (Wo rk) Social History Tobacco Use Types [...] for 1 year supply. Telephone Encounter - Aria Lopez - 05/23/2013 1:20 PM EDT Name of Med: Propranolol Strength of Pills: 150 mg Dosing Directions: Take 1 capsule by mouth twice a day 30 or 90 Day: 90 day supply Pharmacy: [facility], [place], [place] Last Appointment: 04/19/2012 Next Appointment: 06/20/2013 documented in this encounter Plan of Treatment Upcoming Encounters Date Type Specialty Care Team Description 06/16/2022 Infusion Hematology and Oncology 06/21/2022 Office Visit Neurology Tyler Rojas MD [facility] Neurology [place], [place] [phone] (Wo rk) 06/29/2022 Appointment Cardiology Violetta Sanford M D [address] [place], [place] [address] (Wo rk) 06/30/2022 Infusion Hematology and Oncology 07/14/2022 Infusion Hematology and Oncology 07/28/2022 Infusion Hematology and Oncology 08/11/2022 Infusion Hematology and Oncology 08/16/2022 Office Visit Audiology Mindy Moody AUD [facility] AUDIOLOGY DEPT [place], [place] [address] (Wo rk) 11/04/2022 Office Visit Rheumatology Dante Freedman PA [facility] RHEUMATOLOGY [place], [place] [address] (Wo rk) documented as of this encounter Visit Diagnoses Diagnosis Tremor, essential - Primary Essential and other specified forms of t remor documented in this encounter Care Teams Fire Prevention Engineer Relationship Specialty Start Date End Date Dc Ibanez MD PCP - General 04/02/13 04/01/14 ANAMARIA [address] [place] [address] documented as of this encounter
--- OUTSIDE RECORDS SUMMARY | 2022-06-16 12:34 | XMS_ITS | Encounter Summary ---
:1955 Author Organization [facility] [place] [address] Care Team Providers Name Role Phone Candido Jenkins MD Primary Care Provider Reason for Visit Reason Comments Wound Check Right stump Encounter Details Date Type Department Care Team Description 05/19/2012 Follow-Up Orthopaedics at [facility], DR CRISTIAN Roblero's arthropathy, diabe [facility], R; [facility] D rive Amputee, below knee; [place] [address] Delayed wound healing; [phone] Diabetes mellit us with neuropathy; Amputee, below [...] Neurology Tyler Rojas MD [facility] Neurology [place], [place] [phone] (Wo rk) 06/29/2022 Appointment Cardiology Violetta Sanford M D [address] [place] [address] (Oscar escobedo) 06/30/2022 Infusion Hematology and Oncology 07/14/2022 Infusion Hematology and Oncology 07/28/2022 Infusion Hematology and Oncology 08/11/2022 Infusion Hematology and Oncology 08/16/2022 Office Visit Audiology Mindy Moody AUD ONE [facility] AUDIOLOGY [place], [place] [address] (Wo rk) 11/04/2022 Office Visit Rheumatology Dante Freedman PA ONE [facility] RHEUMATOLOGY [place], [place] [address] (Wo rk) documented as of this encounter Visit Diagnoses Diagnosis Charcot's arthropathy, diabetic, R 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
--- OUTSIDE RECORDS SUMMARY | 2022-06-16 12:34 | XMS_ITS | Encounter Summary ---
:1955 Author Organization [facility] [place] [address] Care Team Providers Name Role Phone Candido Jenkins MD Primary Care Provider Reason for Visit Reason Comments Wound Check s/p BKA Dos 06/21/11 Encounter Details Date Type Department Care Team Description 05/04/2012 Follow-Up Orthopaedics at [facility], DR FOSTER S/P BKA (below knee amputati on) (Primary Dx); [facility] D rive Amputee, below knee, L; [place] [address] Type II diabetes mellitus wi th renal manifestations; [phone] Diabetes mellit us with neuropathy; Delayed wound [...] Tyler Rojas MD [facility] Neurology [place], [place] [phone] (Oscar escobedo) 06/29/2022 Appointment Cardiology Violetta Sanford M D [address] [place] [address] (Oscar escobedo) 06/30/2022 Infusion Hematology and Oncology 07/14/2022 Infusion Hematology and Oncology 07/28/2022 Infusion Hematology and Oncology 08/11/2022 Infusion Hematology and Oncology 08/16/2022 Office Visit Audiology Mindy Moody AUD [facility] AUDIOLOGY [place], [place] [address] (Wo rk) 11/04/2022 Office Visit Rheumatology Dante Freedman PA [facility] RHEUMATOLOGY [place], [place] [address] (Wo rk) documented as of [...] complicated documented in this encounter Care Teams Postal Carrier Relationship Specialty Start Date End Date Candido Jenkins MD PCP - General 05/20/11 04/01/13 [address] [place] [address] documented as of this encounter
--- OUTSIDE RECORDS SUMMARY | 2022-06-16 12:34 | XMS_ITS | Encounter Summary ---
:1955 Author Organization [facility] [place] [address] Care Team Providers Name Role Phone Candido Jenkins MD Primary Care Provider Encounter Details Date Type Department Care Team Description 03/17/2012 Office Visit Endocrinology at [facility] Donell Hardin, Diabetes mellitus; [facility] Giovana tyler MD [place], [place] [address] [facility] [phone] [facility] DE[facility]. 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: Sees prosthetic expert flu shot :yes pneumovax: [...] retinopathy OS ext: bilateral bka, wearing a pipeline inspector sock on R Recent Results (from the [...] MD [facility] Neurology [place], [place] [phone] (Wo rk) 06/29/2022 Appointment Cardiology Violetta Sanford M D [address] [place] [address] (Wo rk) 06/30/2022 Infusion Hematology and Oncology 07/14/2022 Infusion Hematology and Oncology 07/28/2022 Infusion Hematology and Oncology 08/11/2022 Infusion Hematology and Oncology 08/16/2022 Office Visit Audiology Mindy Moody AUD [facility] AUDIOLOGY DEPT [place], [place] [address] (Wo rk) 11/04/2022 Office Visit Rheumatology Dante Freedman PA [facility] RHEUMATOLOGY [place], [place] [address] (Wo rk) documented as of [...] LDL Chol 67 <=99 mg/dL CERNER Direct MILLENNIUM Comment: The National Cholesterol Education Progr am (NCEP) has set the following guidelines for LDL Cholesterol: Reference range: ?? Optimal: ?<100 mg/dL ?? Near Optimal/Above Optimal: ?? 100-1 29 mg/dL ?? Borderline high: ?130-159 mg/dL ?? High: ? 160-189 mg/dL ?? Very high: ?>lh=017 mg/dL SERENA 2001: 285(19):8765-2620 Specimen Anatomical Collection Method Collection Time Receive d Time (Source) Location / / Volume Laterality Blood specimen 06/28/2012 8:49 AM 012 9:08 (specimen) EST AM EST Resulting Agency Comment Spec In Lab Donell Hernandez MD CHEMISTRY ORDERABLES Performing Organization Address City/State/[place] [address] CERNER MILLENNIUM (ABNORMAL) Hemoglobin [...] are available on [facility] ADA website: ??http://professional.diabetes.org/gluc osecalculator.aspx Reference: Scooby MALDONADO, Nba J, Sydnee R, et al. ??Tr anslating the A1C assay into estimated average glucose values. ??Diabetes Care 2008:31(8):8970-3888. Specimen Anatomical Collection Method Collection Time Receive d Time (Source) Location / / Volume Laterality Blood specimen 06/28/2012 8:49 AM 012 9:08 (specimen) EST AM EST Resulting Agency Comment Spec In Lab Donell Hernandez MD CHEMISTRY ORDERABLES Performing Organization Address City/State/[place] [address] CERNER MILLENNIUM (ABNORMAL) Creatinine, serum (06/28/2012 8:49 AM EST) athologist Signature Creatinine 1.90 (H) 0.80 - CERNER 1.50 mg/dL MILLENNIUM Comment: Please note that the pediatric reference intervals supplied above were not validated at [facility]. Results from pediatri c patients [...] Address City/State/[place] [address] CERNER MILLENNIUM TSH (03/17/2012 8:06 AM EDT) athologist Signature TSH 2.32 0.27 - 4.20 CERNER mcIU/mL MILLENNIUM Specimen Anatomical Collection Method Collection Time Receive d Time (Source) Location / / Volume Laterality Blood specimen 03/17/2012 8:06 AM 012 8:15 (specimen) EDT AM EDT Resulting Agency Comment Spec In Lab Donell Hernandez MD CHEMISTRY ORDERABLES Performing Organization Address City/State/ZIP Code Phon e Number [place] [address] CERNER MILLENNIUM (ABNORMAL) Creatinine, serum (03/17/2012 8:06 AM EDT) athologist Signature Creatinine 1.83 (H) 0.80 - CERNER 1.50 mg/dL [facility] Comment: Please note that the pediatric reference intervals supplied above were not validated at [facility]. Results from pediatri c patients [...] Organization Address City/State/[place] [address] HOLLI COLEENNIUM (ABNORMAL) Hemoglobin A1c (03/17/2012 8:06 AM EDT) [...] into estimated average glucose values. ??Diabetes Care 2008:31(8):6895-3738. Specimen Anatomical Collection Method Collection Time Receive d Time (Source) Location / / Volume Laterality Blood specimen 03/17/2012 8:06 AM 012 8:15 (specimen) EDT AM EDT Resulting Agency Comment Spec In Lab Donell Hernandez MD CHEMISTRY ORDERABLES Performing Organization Address City/State/[place] [address] HOS[address] LAB[address] [facility] documented in this encounter Visit Diagnoses Diagnosis Diabetes mellitus Type II or unspecified type diabetes fredo litus without mention of complication, not stated as uncontrolled Amputee, below knee Lower limb amputation, below knee documented in this encounter Care Teams Radio Program Checker Relationship Specialty Start Date End Date Candido Jenkins MD PCP - General 05/20/11 04/01/13 [address] [place] [address] documented as of this encounter
--- OUTSIDE RECORDS SUMMARY | 2022-06-16 12:34 | XMS_ITS | Encounter Summary ---
:1955 Author Organization [facility] [address] Care Team Providers Name Role Phone Candido Jenkins MD Primary Care Provider Reason for Visit Reason Comments Wound Check Right BKA DOS 06/21/12 Encounter Details Date Type Department Care Team Description 01/31/2013 Office Visit [facility] [place] [facility], DR CRISTIAN Walters of BKA (Primary Dx); [facility] Giovana tyler Delayed wound healing; [place] [address] Amputee, below knee; [phone] Amputee, below knee, L; Diabetes mellit us [...] Office Visit Neurology Tyler Rojas MD [facility] Neurology [place], [place] [address] (Oscar escobedo) 06/29/2022 Appointment Cardiology Violetta Sanford M D [address] [place] [address] (Oscar escobedo) 06/30/2022 Infusion Hematology and Oncology 07/14/2022 Infusion Hematology and Oncology 07/28/2022 Infusion Hematology and Oncology 08/11/2022 Infusion Hematology and Oncology 08/16/2022 Office Visit Audiology Mindy Moody AUD ONE [facility] AUDIOLOGY [place], [place] [address] (Wo rk) 11/04/2022 Office Visit Rheumatology Dante Freedman PA [facility] RHEUMATOLOGY [place], [place] [address] (Wo rk) documented as of [...] uncontrolled documented in this encounter Care Teams Police Lieutenant Patrol Relationship Specialty Start Date End Date Candido Jenkins MD PCP - General 05/20/11 04/01/13 [address] [place] [address] documented as of this encounter
--- OUTSIDE RECORDS SUMMARY | 2022-06-16 12:34 | XMS_ITS | Encounter Summary ---
:1955 Author Organization [facility] [place] [address] Care Team Providers Name Role Phone Candido Jenkins MD Primary Care Provider Reason for Visit Reason Comments Follow-up Right BKA DOS 06/21/12 Encounter Details Date Type Department Care Team Description 02/15/2013 Office Visit Orthopaedics [place] [facility] [place] Roy Diabetes mellitus with neuro mendy (Primary Dx); [facility] MD Abi Ampmalachi, [place] [address] ORTHOPAEDIC SURGERY [place] [address] Social History Tobacco Use Types Packs/Day Years [...] Rojas MD [facility] Neurology [place], [place] [address] (Wo rk) 06/29/2022 Appointment Cardiology Violetta Sanford M D [address] [place] [address] (Wo rk) 06/30/2022 Infusion Hematology and Oncology 07/14/2022 Infusion Hematology and Oncology 07/28/2022 Infusion Hematology and Oncology 08/11/2022 Infusion Hematology and Oncology 08/16/2022 Office Visit Audiology Mindy Moody AUD [facility] AUDIOLOGY [place], [place] [address] (Wo rk) 11/04/2022 Office Visit Rheumatology Dante Freedman PA [facility] RHEUMATOLOGY [place], [place] [address] (Wo rk) documented as of this encounter Visit Diagnoses Diagnosis Diabetes mellitus with neuropathy - Prim tiffany 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
--- OUTSIDE RECORDS SUMMARY | 2022-06-16 12:34 | XMS_ITS | Encounter Summary ---
:1955 Author Organization [facility] [place] [address] Care Team Providers Name Role Phone Candido Jenkins MD Primary Care Provider Reason for Visit Reason Comments Wound Check Right BKA 06/21/12 Encounter Details Date Type Department Care Team Description 09/28/2012 Follow-Up Orth[facility] [place] [facility], DR CRISTIAN Olsen, below knee, L (Prim tiffany Dx); [facility] Giovana tyler Type II diabetes mellitus wi th renal manifestations; [place] [address] Diabetes mellitus with neuro mendy; [phone] Delayed wound h ealing; Amputee, below knee; [...] 20 lbs. He had his HbA1c done 12--12 and [...] Tyler Rojas MD [facility] Neurology [place], [place] [address] (Wo rk) 06/29/2022 Appointment Cardiology Violetta Sanford M D [address] [place] [address] (Wo rk) 06/30/2022 Infusion Hematology and Oncology 07/14/2022 Infusion Hematology and Oncology 07/28/2022 Infusion Hematology and Oncology 08/11/2022 Infusion Hematology and Oncology 08/16/2022 Office Visit Audiology Mindy Moody AUD [facility] AUDIOLOGY [place], [place] [address] (Wo rk) 11/04/2022 Office Visit Rheumatology Dante Freedman, PA [facility] RHEUMATOLOGY [place], [place] [address] (Wo rk) documented as of [...] complicated documented in this encounter Care Teams Internal Audit Consultant Relationship Specialty Start Date End Date Candido Jenkins MD PCP - General 05/20/11 04/01/13 [address] [place] [address] documented as of this encounter
--- OUTSIDE RECORDS SUMMARY | 2022-06-16 12:34 | XMS_ITS | Encounter Summary ---
:1955 Author Organization [facility] [place] [address] Care Team Providers Name Role Phone Dc Ibanez MD Primary Care Provider Reason for Visit Reason Onset Date Comments Advice Only 04/11/2013 Encounter Details Date Type Department Care Team Description 04/11/2013 Telephone Solid Organ Transplant at [place] [address] Social History Tobacco Use Types Packs/Day Years Used Date Smoking Tobacco: Former Cigarettes 2 20 Quit : 01/19/1993 Smokeless Tobacco: Never Alcohol Use Standard Drinks/Week Comments Yes 0 (1 standard drink = 0.6 oz pure alcoho l) rare Sex Assigned at Date Recorded Not on file documented as of this encounter Miscellaneous Notes Telephone Encounter - Travis Arita RN - 04/11/2013 3:48 PM EDT Message copied by TRAVIS ARITA on TueApr 11, 2013 3:48 PM ------ Message from: MELANI RUSH Created: TueApr 11, 2013 10:51 AM Please call his mom Brie [phone] Wants to further discuss from yesterday. He [...] Rojas MD [facility] Neurology [place] [address] 6-[address] (Wo rk) 06/29/2022 Appointment Cardiology Violetta Sanford M D [address] [place], [place] [address] (Wo rk) 06/30/2022 Infusion Hematology and Oncology 07/14/2022 Infusion Hematology and Oncology 07/28/2022 Infusion Hematology and Oncology 08/11/2022 Infusion Hematology and Oncology 08/16/2022 Office Visit Audiology Mindy Moody AUD [facility] AUDIOLOGY DEPT [place], [place] [address] (Wo rk) 11/04/2022 Office Visit Rheumatology Dante Freedman PA [facility] RHEUMATOLOGY [place], [place] [address] (Wo rk) documented as of this encounter Visit Diagnoses Not on filedocumented in this encounter Care Teams Millroom Supervisor Relationship Specialty Start Date End Date Dc Ibanez MD PCP - General 04/02/13 04/01/14 [address] [place], [place] [address] documented as of this encounter
--- OUTSIDE RECORDS SUMMARY | 2022-06-16 12:35 | XMS_ITS | Encounter Summary ---
:1955 Author Organization [facility] Address [facility] [place] [address] Care Team Providers Name Role Phone Candido Jenkins MD Primary Care Provider Reason for Visit Reason Comments Wound Check s/p Right BKA Dos 06/21/11 Encounter Details Date Type Department Care Team Description 02/23/2012 Follow-Up Orthopaedics at [facility], DR FOSTER Delayed wound healing; [facility] D rive S/P BKA (below knee amputati on) - right lower extremity; [place] [address] Charcot's arthropathy, diabe tic, R; [phone] [facility] us with neuropathy Social History Tobacco Use [...] Tyler Rojas MD [facility] Neurology [place], [place] [address] (Oscar escobedo) 06/29/2022 Appointment Cardiology Violetta Sanford M D [address] [place] [address] (Oscar escobedo) 06/30/2022 Infusion Hematology and Oncology 07/14/2022 Infusion Hematology and Oncology 07/28/2022 Infusion Hematology and Oncology 08/11/2022 Infusion Hematology and Oncology 08/16/2022 Office Visit Audiology Mindy Moody AUD ONE [facility] AUDIOLOGY [place], [place] [address] (Wo rk) 11/04/2022 Office Visit Rheumatology Dante Freedman, PA [facility] RHEUMATOLOGY [place], [place] [address] (Wo rk) documented as of this encounter Visit Diagnoses Diagnosis Delayed wound healing Open wound(s) (multiple) of unspecified site(s), complicated S/P BKA (below knee amputation) - right lower extremity Lower limb amputation, below knee Charcot's arthropathy, diabetic, 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
--- OUTSIDE RECORDS SUMMARY | 2022-06-16 12:35 | XMS_ITS | Encounter Summary ---
:1955 Author Organization [place] [address] Care Team Providers Name Role Phone Candido Jenkins MD Primary Care Provider Encounter Details Date Type Department Care Team Description 10/05/2011 Office Visit Audiology at [facility] Mindy Moody, Sensorineural hearing [facility] AUD loss, bilateral Drive [facility] (Primary Dx) [place], [place] CENTER [address] AUDIOLOGY DEPT [phone] [place], [place] [address] Social History Tobacco Use Types [...] Torres. He qualifies for hearingaid coverage through [place] Medicaid. PLAN Return to clinic for fitting of binaural hearing aids Antonio Blue, Commercial Floor Covering Installer [facility] [place] [address] ; [phone] (fax) documented in this encounter Plan of Treatment Upcoming Encounters Date Type Specialty Care Team Description 06/16/2022 Infusion Hematology and Oncology 06/21/2022 Office Visit Neurology Tyler Rojas MD [facility] Neurology [place], [place] [phone] (Wo rk) 06/29/2022 Appointment Cardiology Violetta Sanford M D [address] [place] [address] (Wo rk) 06/30/2022 Infusion Hematology and Oncology 07/14/2022 Infusion Hematology and Oncology 07/28/2022 Infusion Hematology and Oncology 08/11/2022 Infusion Hematology and Oncology 08/16/2022 Office Visit Audiology Mindy Moody AUD [facility] AUDIOLOGY DEPT [place], [place] [address] (Wo rk) 11/04/2022 Office Visit Rheumatology Dante Freedman PA [facility] RHEUMATOLOGY [place], [place] [address] (Oscar escobedo) documented as of this encounter Visit Diagnoses Diagnosis Sensorineural hearing loss, bilateral - Primary documented in this encounter Care Teams Trouble Dispatcher Relationship Specialty Start Date End Date Candido Jenkins MD PCP - General 05/20/11 04/01/13 [address] [place] [address] documented as of this encounter
--- OUTSIDE RECORDS SUMMARY | 2022-06-16 12:35 | XMS_ITS | Encounter Summary ---
:1955 Author Organization [facility] [place] [address] Care Team Providers Name Role Phone Candido Jenkins MD Primary Care Provider Encounter Details Date Type Department Care Team Description 08/12/2011 External Results Audiology at [facility] Corinne Turner, [facility] [place] [address] [facility] [phone] AUDIOLOGY DEPT [place], [place] [address] (Oscar escobedo) Social History Tobacco [...] [facility] Neurology [place], [place] [phone] (Wo rk) 06/29/2022 Appointment Cardiology Violetta Sanford M D [address] [place], [place] [address] (Oscar rk) 06/30/2022 Infusion Hematology and Oncology 07/14/2022 Infusion Hematology and Oncology 07/28/2022 Infusion Hematology and Oncology 08/11/2022 Infusion Hematology and Oncology 08/16/2022 Office Visit Audiology Mindy Moody AUD [facility] AUDIOLOGY [place], [place] [address] (Wo rk) 11/04/2022 Office Visit Rheumatology Dante Freedman PA [facility] RHEUMATOLOGY [place], [place] [address] (Wo rk) documented as of this encounter Procedures Procedure Name Priority Date/Time Associated Diagnosis Comme nts AUDIOLOGY SCAN Routine 08/09/2011 documented in this encounter Results Scan Doc: Audiology (08/09/2011) Narrative This result has an attachment that is no t available. Corinne Kimlla Johnny MS MEDIA MGR SCAN EXT ORDR/RSLT documented in this encounter Visit Diagnoses Not on filedocumented in this encounter Care Teams [employer] Plant [employer] Operator Relationship Specialty Start Date End Date Candido Jenkins MD PCP - General 05/20/11 04/01/13 [address] [place] [address] documented as of this encounter
--- OUTSIDE RECORDS SUMMARY | 2022-06-16 12:35 | XMS_ITS | Encounter Summary ---
:1955 Author Organization [facility] [place] [address] Care Team Providers Name Role Phone Candido Jenkins MD Primary Care Provider Reason for Visit Reason Comments Diabetes Encounter Details Date Type Department Care Team Description 08/09/2011 Office Visit Endocrinology at [facility] Margaret Ahuja, Diabetes mellitus [facility] [employer] GRADER (Primary Dx) [place] [address] [facility] [phone] ENDOCRINOLOGY DEPT. [place], [place] [address] Social History Tobacco Use Types [...] Tyler Rojas MD [facility] Neurology [place], [place] [phone] (Wo rk) 06/29/2022 Appointment Cardiology Violetta Sanford M D [facility] [address] [place] [address] (Wo rk) 06/30/2022 Infusion Hematology and Oncology 07/14/2022 Infusion Hematology and Oncology 07/28/2022 Infusion Hematology and Oncology 08/11/2022 Infusion Hematology and Oncology 08/16/2022 Office Visit Audiology Mindy Moody AUD [facility] AUDIOLOGY DEPT [place], [place] [address] (Wo rk) 11/04/2022 Office Visit Rheumatology Dante Freedman PA [facility] RHEUMATOLOGY [place], [place] [address] (Wo rk) Scheduled Orders Name Type Priority Associated Diagnoses Order S chedule Comprehensive metabolic Lab Routine Diabetes mellitus Expected: [...] uncontrolled documented in this encounter 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
--- OUTSIDE RECORDS SUMMARY | 2022-06-16 12:35 | XMS_ITS | Encounter Summary ---
:1955 Author Organization [facility] [place] [address] Care Team Providers Name Role Phone Candido Jenkins MD Primary Care Provider Encounter Details Date Type Department Care Team Description 06/21/2011 - [address] Kirill Narayan Open wound o f right ankle; 06/24/2011 Encounter Allison Alex MD Diabetes mellitus with neuropathy; [facility] MEDICAL Transplant kidney; [facility] HTN (hypertension); [facility] ORTHOPAEDIC Puncture wound of thumb, lef t; [place], [place] SURGERY Tremor, essential; [phone] [place], [place] Hypercholesteremia [phone] [id number] Social History Tobacco Use Types Packs/Day Years [...] documented in this encounter Discharge Instructions Patient InstructionsCarrie Hunt, BERTA - 06/22/2011 2:28 PM EST DISCHARGE INSTRUCTIONS: [...] a bowel movement. You can try an ewmg-xjt-rijkvim medication, miralax if needed. 2. When you [...] or stump. 4. Call your orthopaedic surgeon (#[phone]) with any fever, chills, sweats, redness or [...] bring pt to rehab. Report called to rehab therapy manager. Patricia Koo - 06/24/2011 12:38 PM EST Office of Care Management/Director Data Analytics Group 2 Patient Name: Leroy Dailey : 1955 Patient has been offered a swing bed at [facility]. [facility] arranged for a 1:30pm transport. Ambulance will need: Medicare ambulance form completed and signed (MD or CRC) Copy of patient demographics [place] or [place] [facility] Hospital DNR/DNI order, if active No MD to MD report necessary. 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 Info to accompany patient: Narcotic Prescriptions Copies of Medication Administration Records and IV sheets for past two weeks. Plan: Director Data Analytics will be available to the patient and CRC for further assistance. PATRICIA SAAVEDRA, Director Data Analytics Pager [phone] Miles Mccabe MD - 06/24/2011 5:57 AM [...] Franco RN - 06/23/2011 9:58 PM EST [phone] Patient sleepy tonight, but was able to [...] History: Patient lives with his mother in [facility], Stairs: 0 Baseline Mobility: independent with [...] interventions:18 minutes functional JOYCE CHERY PT 06/23/2011 Pager:[phone] Physical Therapy Rehabilitation Department Stephanie Barker, OT - 06/23/2011 10:00 AM EST Occupational Therapy Note Checked in with nursing this morning. Pt nauseous and unable to participate. This therapist unable to follow up in the pm. Stephanie Borrego, OTR Pager [phone] Miles Mccabe MD - 06/23/2011 7:51 AM [...] Vazquez RN - 06/22/2011 6:42 PM EST 0 called regarding increased temperature, no new orders, [...] BELOW-KNEE performed by NARAYAN GAMINO JR at [facility] MAIN OR Social History: Patient [...] Pt asking OT for assistance to don hoop maker helper machine on L stump. Pt turning beat red when attempt to don hoop maker helper machine over stump, while long sitting in bed. [...] stump iftikhar wrapped and L stump with hoop maker helper machine on it. Pt with large pannis/abdomen. Informed [...] 2' swelling, and not locking. Pt issued hoop maker helper machine earlier today to wear to help shape [...] 3. Patient will be able to don hoop maker helper machine/ sleeve on L LE independently and appropriately [...] minutes Total timed interventions: 0 minutes Pager: [phone] STEPHANIE BORREGO OT 06/22/2011 Occupational Therapy Rehabilitation [...] by Dr Gamino. 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 Pt went out- pt for PT after his last BKA but that was twelve yrs ago. Pt has a prosthesis for his L LE. I discussed in-pt rehab with pt and he agrees this would be beneficial. Pt requests referrals be made to [facility], [facility] and [facility]. I will ask the SNF RS to make referrals. Pt should be ready on pending medical status and bed availability. Pt will need a S amb and has Medicare only. I will ask IAM Nelson to see about applying for Medicaid. A: Progressing toward d/c to rehab for con't PT/OT until indep with ADLs and can return home. P: Will follow. IN Chery Joyce Surendra, PT - 06/22/2011 9:26 AM EST Physical [...] History: Patient lives with his mother in [facility], Stairs: 0 Baseline Mobility: independent with L LE prosthesis, had stopped using a cane Equipment at home: 2 walkers, WC, cane, LLE prosthesis Precautions/Special Considerations: L BKA, new R BKA, LUE fistula, glasses Subjective: ???I can't lock the leg. It's because my leg is swollen?? Objective: Pt seen for evaluation today. Contacted [place] re: hoop maker helper machine for LLE Pain: mild, p.o meds, good [...] achieving full hip/knee extension. LLE has edema, hoop maker helper machine delivered to help. Expect he will progress [...] timed interventions:0 minutes JOYCE CHERY, PT 06/22/2011 Pager:[phone] Physical Therapy Rehabilitation Department Miles Mccabe MD [...] Franco RN - 06/21/2011 8:01 PM EST [phone] Patient alert and oriented times four. Lung sounds diminished bilaterally with moderate cough with no production. IS teaching completed with return demonstration. Hypoactive bowel sounds in all four quadrants, states he is passing flatus/burping. Last bowel movement per patient was yesterday. Pain well controlled with Morphine LEAN CONSULTANT (settings checked) with LR at 100 cc/hr. [...] and incentive spirometer. Will continue to monitor. Juuj Bhandari RN - 06/21/2011 3:[address] Mccabe aware of bladder scan. Will write straight cath orders. 1537 straight cath'd for 650cc 1550 audio director initiated. Patient able to verbalize and demonstrate [id number] patient hr in 30's while dry heaving. Spontaneously resolved. Patient states nausea has resolved after zofran given. No further bradycardia. 1606 family at bedside. Patient states that he is feeling pretty good . Using audio director with good results. Patients glasses and teeth [...] discharge date for patient encounter. Attending Physician: Naraayn Gamino Jr., MD Discharge Diagnoses (Hospital Problems) [...] all times for balance and protection. The LEAN CONSULTANT was discontinued on POD#1 and the patient [...] a bowel movement. You can try an cbhr-uss-kknzlef medication, miralax if needed. 2. When you [...] or stump. 4. Call your orthopaedic surgeon (#[phone]) with any fever, chills, sweats, redness or [...] AM Margaret Sawyer APRN [facility] Endocrinology 5c [phone] [facility] Joint Appt Resource Endo Lab [facility] 5a [phone] [facility] 07/01/2011 2:20 PM Narayan Gamino Jr., MD [facility] Orthopaedics 3c [phone] None Future Orders Please Complete By Expires Chlorhexidine scrub: [VRD331 Custom] Process Instructions: Scheduling Instructions: Comments: Shower and wash the intended surgical site as instructed the evening and morning prior to surgery. Dispense 1 bottle. Questions: Responses: Provider Contact Information: Primary Care Provider: CANDIDO JENKINS MD [phone] Hospital Attending: Narayan Gamino Jr., MD Department of Orthopaedic Surgery Sports: [phone] For questions regarding this document or issues relating to this hospitalization on the Medical Service, please contact your inpatient physician through the [facility] Electronic Technologist . Issues after hours and on weekends will be handled by the Hospitalist staff on-call. Signed: NICOLA PINEDA MD 06/24/2011 Plan of Care - Mer Stokes RN - 06/23/2011 1:24 AM EST Problem: [...] Mccabe MD - 06/21/2011 3:27 PM EST [facility] Operative Note Patient Name: Leroy Dailey : [id number] MR#: [id number] Case Date: 06/21/2011 Surgeon: Surgeon(s) and Role: [...] sterile fashion. A time-out was performed per [facility] protocol. The team agreed to proceed. An [...] Operative Note Patient Name: Leroy Dailey : [id number] MR#: [id number] Case Date: 06/21/2011 Surgeon: Surgeon(s) and Role: [...] Rojas MD [facility] Neurology [place], [place] [phone] (Wo gregg) 06/29/2022 Appointment Cardiology Violetta Sanford M D [address] [place] [address] (Oscar escobedo) 06/30/2022 Infusion Hematology and Oncology 07/14/2022 Infusion Hematology and Oncology 07/28/2022 Infusion Hematology and Oncology 08/11/2022 Infusion Hematology and Oncology 08/16/2022 Office Visit Audiology Mindy Moody, [facility] AUDIOLOGY DEPT [place], [place] [address] (Wo rk) 11/04/2022 Office Visit Rheumatology Dante Freedman PA [facility] RHEUMATOLOGY [place], [place] [address] (Wo rk) documented as of [...] CARE TEST ORDERABLE S Performing Organization Address City/[facility]/ZIP Code Phon e Number [address] CERNER MILLENNIUM POCT GLUCOSE [...] Organization Address City/State/[place] [address] CERNER MILLENNIUM SCAN, PERIPHERAL BLOOD (06/24/2011 4:18 AM EST) [employer] Method Time Signature Plat Estimate Normal CERNER [...] Organization Address City/State/[place] [address] CERNER MILLENNIUM (ABNORMAL) DIFFERENTIAL, AUTOMATED (06/24/2011 4:18 AM EST) [employer] Method Time Signature Neutrophils % 73.8 (H) [...] Organization Address City/State/ZIP Code Phon e Number [place] [phone]OS[address] CERNER MILLENNIUM (ABNORMAL) BASIC [...] Organization Address City/State/ZIP Code Phon e Number [place] [phone] CERNER MILLENNIUM (ABNORMAL) Creatinine, [...] Jr., MD CHEMISTRY ORDERABLES Performing Organization Address City/[facility] e Number [address] CERNER MILLENNIUM (ABNORMAL) BUN (06/24/2011 4:18 AM EST) P athologist Signature BUN 42 (H) 10 - 20 CERNER mg/dL MILLENNIUM Specimen Anatomical Collection Method Collection Time Receive d Time (Source) Location / / Volume Laterality Blood specimen 06/24/2011 4:18 AM 011 4:23 (specimen) EST AM EST Narayan Gamino Jr., MD CHEMISTRY ORDERABLES Performing Organization Address [facility] Phon e Number [address] CERNER MILLENNIUM (ABNORMAL) Electrolytes [...] Organization Address City/State/ZIP Code Phon e Number [place] [phone]OS[address] CERNER MILLENNIUM (ABNORMAL) CBC [...] Jr., MD HEMATOLOGY ORDERABLES Performing Organization Address City/[facility]/[place] [address] CERNER MILLENNIUM (ABNORMAL) POCT GLUCOSE LAB USE ONLY (06/23/2011 8:20 PM EST) P athologist Signature POC Glucose 215 [...] CARE TEST ORDERABLE S Performing Organization Address City/[facility]/[place] [address] CERNER MILLENNIUM (ABNORMAL) POCT GLUCOSE LAB USE ONLY (06/23/2011 6:32 PM EST) P athologist Signature POC Glucose [...] CARE TEST ORDERABLE S Performing Organization Address City/[facility]/[place] [address] CERNER MILLENNIUM (ABNORMAL) POCT GLUCOSE LAB USE ONLY (06/23/2011 4:22 PM EST) P athologist Signature POC Glucose 291 [...] Address City/State/ZIP Code Phon e Number [place] [phone]OSP[address] CERNER MILLENNIUM (ABNORMAL) Basic [...] MD CHEMISTRY ORDERABLES Performing Organization Address City/State/ZIP [facility] Phon e Number [address] CERNER MILLENNIUM (ABNORMAL) POCT GLUCOSE LAB USE ONLY (06/23/2011 2:24 PM EST) athologist Signature POC Glucose 274 (H) 60 - 199 CERNER mg/dL [facility] Comment: Supplemental ranges: <110 mg/dL before meals <200 mg/dL all other times of the day Specimen Anatomical Collection Method Collection Time Receive d Time (Source) Location / / Volume Laterality Blood specimen 06/23/2011 2:24 PM 011 2:24 (specimen) EST PM EST Narayan Gamino Jr., MD POINT OF CARE TEST ORDERABLE S Performing Organization Address City/[facility] Phon e Number [address] CERNER MILLENNIUM (ABNORMAL) POCT GLUCOSE LAB USE ONLY (06/23/2011 11:21 AM EST) athologist Signature POC Glucose 273 (H) 60 - 199 CERNER mg/dL MILLENNIUM Comment: Supplemental ranges: <110 mg/dL before meals <200 mg/dL all other times of the day Specimen Anatomical Collection Method Collection Time Receive d Time (Source) Location / / Volume Laterality Blood specimen 06/23/2011 11:21 201 1 (specimen) AM EST 11:21 AM EST Narayan Gamino Jr., MD POINT OF CARE TEST ORDERABLE S Performing Organization Address City/State/ZIP Code Phon e Number [address] CERNER MILLENNIUM (ABNORMAL) POCT [...] CARE TEST ORDERABLE S Performing Organization Address City/[facility]/ZIP Code Phon e Number [address] CERNER MILLENNIUM (ABNORMAL) DIFFERENTIAL, [...] Jr., MD HEMATOLOGY ORDERABLES Performing Organization Address City/[facility]/[place] [address] CERNER MILLENNIUM (ABNORMAL) BUN (06/23/2011 4:39 AM EST) P athologist Signature BUN 44 (H) 10 - 20 CERNER mg/dL MILLENNIUM Specimen Anatomical Collection Method Collection Time Receive d Time (Source) Location / / Volume Laterality Blood specimen 06/23/2011 4:39 AM 011 4:55 (specimen) EST AM EST Narayan Gamino Jr., MD CHEMISTRY ORDERABLES Performing Organization Address City/[facility]/ZIP [facility] [place] [address] CERNER MILLENNIUM (ABNORMAL) Creatinine, [...] Organization Address City/State/[place] [address] CERNER MILLENNIUM (ABNORMAL) Electrolytes [...] Jr., MD CHEMISTRY ORDERABLES Performing Organization Address City/[facility] [place] [address] CERNER MILLENNIUM (ABNORMAL) CBC [...] Jr., MD HEMATOLOGY ORDERABLES Performing Organization Address City/[facility] [place] [address] [facility] MILLENNIUM POCT GLUCOSE LAB USE ONLY (06/22/2011 [...] CARE TEST ORDERABLE S Performing Organization Address [facility]/ZIP [facility] [place] [address] [facility] [...] CARE TEST ORDERABLE S Performing Organization Address City/[facility] [place] [address] CERNER MILLENNIUM (ABNORMAL) Basic [...] M Calcium 9.1 8.5 - 10.5 mg/dL CERNER OMKAR NIUM [...] Organization Address City/State/ZIP Code Phon e Number [place] [phone] [facility] [address] CERNER [facility] POCT GLUCOSE LAB USE ONLY (06/22/2011 11:57 AM EST) athologist Signature POC Glucose 136 60 - 199 CERNER mg/dL [facility] Comment: Supplemental ranges: <110 mg/dL before meals <200 mg/dL all other times of the day Specimen Anatomical Collection Method Collection Time Receive d Time (Source) Location / / Volume Laterality Blood specimen 06/22/2011 11:57 1 (specimen) AM EST 11:57 AM EST Narayan Gamino Jr., MD POINT OF CARE TEST ORDERABLE S Performing Organization Address City/State/ZIP Code Phon e Number [address] [facility] EKG 12 Lead (06/22/2011 7:43 AM EST) Component Value Ref Range Test Analysis Performed Pathologis t Method Time At Signature Ventricular rate 54 BPM MUSE SYSTEM Atrial Rate 54 BPM MUSE SYSTEM P-R Interval 190 ms MUSE SYSTEM QRS Duration 108 ms MUSE SYSTEM Q-T Interval 426 ms MUSE SYSTEM QTC Calculated 403 ms MUSE SYSTEM (Bezet) Calculated P [place] 19 degrees MUSE SYSTEM Calculated R [place] -5 degrees MUSE SYSTEM Calculated T [place] 35 degrees MUSE SYSTEM INTERPRETATION Sinus bradycardia [...] LAB USE ONLY (06/22/2011 6:35 AM EST) P athologist Signature POC Glucose 232 (H) 60 - 199 CERNER mg/dL [facility] Comment: Supplemental ranges: <110 mg/dL before meals <200 mg/dL all other times of the day Specimen Anatomical Collection Method Collection Time Receive d Time (Source) Location / / Volume Laterality Blood specimen 06/22/2011 6:35 AM 011 6:35 (specimen) EST AM EST Narayan Gamino Jr., MD POINT OF CARE TEST ORDERABLE S Performing Organization Address City/State/ZIP [place] [address] CERNER MILLENNIUM (ABNORMAL) Basic [...] Organization Address City/State/ZIP Code Phon e Number [place] [phone]OS[address] CERNER MILLENNIUM (ABNORMAL) DIFFERENTIAL, AUTOMATED (06/22/2011 3:52 AM EST) [facility] gist Method Time Signature Neutrophils % 77.4 [...] Organization Address City/State/[place] [address] CERNER MILLENNIUM (ABNORMAL) Basic [...] Jr., MD CHEMISTRY ORDERABLES Performing Organization Address City/[facility] [place] [address] CERNER MILLENNIUM (ABNORMAL) CBC (with Diff) (06/22/2011 3:52 AM EST) athologist Signature WBC 11.9 (H) 4.0 - [...] Jr., MD HEMATOLOGY ORDERABLES Performing Organization Address City/[facility] [place] [address] CERNER MILLENNIUM (ABNORMAL) POCT GLUCOSE LAB USE ONLY (06/21/2011 8:33 PM EST) athologist Signature POC Glucose 222 (H) 60 - 199 CERNER mg/dL [facility] Comment: Supplemental ranges: <110 mg/dL before meals <200 mg/dL all other times of the day Specimen Anatomical Collection Method Collection Time Receive d Time (Source) Location / / Volume Laterality Blood specimen 06/21/2011 8:33 PM 011 8:33 (specimen) EST PM EST Narayan Gamino Jr., MD POINT OF CARE TEST ORDERABLE S Performing Organization Address City/State/ZIP Code Phon e Number [address] CERNER MILLENNIUM POCT GLUCOSE LAB USE ONLY (06/21/2011 4:42 PM EST) athologist Signature POC Glucose 198 60 - 199 [facility]/dL [facility] Comment: Supplemental ranges: <110 mg/dL before meals <200 mg/dL all other times of the day Specimen Anatomical Collection Method Collection Time Receive d Time (Source) Location / / Volume Laterality Blood specimen 06/21/2011 4:42 PM 011 4:42 (specimen) EST PM EST Narayan Gamino Jr., MD POINT OF CARE TEST ORDERLEESA S Performing Organization Address City/[facility]/ZIP Code Phon e Number [address] CERNER MILLENNIUM POCT GLUCOSE LAB USE ONLY (06/21/2011 3:19 PM EST) athologist Signature POC Glucose 177 60 - 199 [facility]ER mg/dL [facility] Comment: Supplemental ranges: <110 mg/dL before meals <200 mg/dL all other times of the day Specimen Anatomical Collection Method Collection Time Receive d Time (Source) Location / / Volume Laterality Blood specimen 06/21/2011 3:19 PM 011 3:19 (specimen) EST PM EST Narayan Gamino Jr., MD POINT OF CARE TEST ORDERLEESA S Performing Organization Address City/[facility]/ZIP Code Phon e Number [address] CERNER MILLENNIUM SURGICAL PATHOLOGY REPORT (06/21/2011 2:40 PM EST) Component Value Ref Test Analysis Performed At Patholo gist Range Method Time Signature Surgical CERNER Pathology ? [facility] Report ? Provider: ?? NARAYAN GAMINO JR ??Pt. Name: ?? LEROY DAILEY ? Acc #: ?[id number] ?Pt. MRN: ?[id number] ? Col Date: ?? 06/21/20 11 ?/Sex: [...] 06/24/11 Verified by: ? Black DO, Elizabeth Desir. ? Pathologist ? (Electronic Si gnature) ? [...] ? ---Clinical Information--- ? Specimen Submitted: ? [facility] ? Provider: ?? NARAYAN GAMINO JR ??Pt. Name: ?? LEROY DAILEY ? Acc #: ?[id number] ?Pt. MRN: ?[id number] ? Col Date: ?? 06/21/20 11 ?/Sex: ?1955,(56 years),Male ? Rec Date: ?? 06/21/2011 ?LOC: ?3WST ? SURGICAL PATHOLOGY ? A - Rt below the knee amputation ? Clinical History/Diagnosis: ? Diabetic foot ulcer Specimen (Source) Anatomical Collection Method Collection Time Re ceived Time Location / / Volume Laterality 06/21/2011 2:40 PM EST Narayan Gamino Jr., MD PATHOLOGY/CYTOLOGY ORDERABLE S Performing Organization Address City/[facility]/[place] [address] CERNER MILLENNIUM Specimen to Pathology (surgical or derm) (06/21/2011 1:47 PM EST) Specimen Anatomical Collection Method Collection Time Receive d Time (Source) Location / / Volume Laterality AP Specimen 06/21/2011 1:47 PM 1 1:47 EST PM EST Narrative CERNER MILLENNIUM - 06/21/2011 1:[address] Specimen requisition ordered. ??Separate Pathology report to follow Narayan Gamino Jr., MD PATHOLOGY/CYTOLOGY ORDERABLE S Performing Organization Address City/[facility]/[place] [address] CERNER MILLENNIUM (ABNORMAL) POCT GLUCOSE LAB USE ONLY (06/21/2011 10:19 AM EST) P athologist Signature POC Glucose 357 (H) 60 - 199 CERNER mg/dL [facility] Comment: Supplemental ranges: <110 mg/dL before meals <200 mg/dL all other times of the day Specimen Anatomical Collection Method Collection Time Receive d Time (Source) Location / / Volume Laterality Blood specimen 06/21/2011 10:19 1 (specimen) AM EST 10:19 AM EST Narayan Gamino Jr., MD POINT OF CARE TEST ORDERABLE S Performing Organization Address City/State/ZIP Code Phon e Number [place] [phone]OS[address]ITAL [address] [facility] documented in this encounter Visit Diagnoses [...] , Until Tue06/21/11 at 1045, MC BOO: Cabinet Override insulin aspart (novoLOG) PEN injection 25 [...] AM EST 10 mg morphine 1 mg/mL LEAN CONSULTANT 30 mL New Syringe/Cartridge 06/21/2011 4:00 PM EST mL/hr Intravenous, LEAN CONSULTANT ONLY, Starting on Tue06/21/11 at 1600, Until Tue06/22/11 at 0750, LOADING DOSE (0-4 mg): zero, LEAN CONSULTANT DOSE (0.5-1.5 mg): 1 mg, LOCKOUT INTERVAL [...] esomeprazole (NEXIUM) capsule 40 mg (CANCELED) 0915 (G juan men - Provider: Andria Vazquez RN) 1016 (Given - Provider: Lizbeth Mcclure RN) 0900 [...] Mer anderson RN)1130 (Given - Provider: Lizbeth Mcclure RN)1430 (Given - Provider: Lizbeth Mcclure RN)1653 (Given - Provider: Lizbeth Mcclure, SHEILA) 0730 (Given - Provider: Jael Vela, SHEILA)1130 (Given - Provider: Nicky Hardy - Comment: bg 170) 3-12 Units, Subcutaneous, 4 TIMES DAILY BEFORE MEALS & NIGHTLY, First dose on Tue06/21/11 at 1630, Until Discontinued, 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 TDD (total daily d 2100 (Not Given - Provider: Ashley De Leon, SHEILA - Reason: Order parameters not met) 1835 (Not Given - Provider: Lizbeth Mcclure RN [...] 2099 (Given - Provider: Ashley De Leon, RN) 2015 (Given - Provider: Andria Vazquez RN) 40 Units, Subcutaneous, NIGHTLY, First d ose on Tue06/21/11 at 2100, Until Discontinued, Routine insulin NPH human recomb (humuLIN;novoLIN) injection 7 0 Units 0700 (Given - Provider: Nikolay Wyatt, RN) 1015 (Given - Provider: Lizbeth Mcclure, SHEILA) 07 (Given - Provider: Jael Vela, SHEILA) 70 Units, Subcutaneous, EVERY MORNING, F irst dose on Tue06/22/11 at 0700, Until Discontinued, Routine losartan (COZAAR) tablet 50 mg (CANCELED) 15 (Given - Provider: Andria Vazquez RN) 1015 (Given - Provider: Lizbeth Mcclure RN) 09 (G iven - Provider: Nicky Hardy) 50 mg, Oral, DAILY, First dose on Tue at 0900, Until Discontinued, Routine montelukast (SINGULAIR) tablet 10 mg (CANCELED) 0916 ( Given - Provider: Andria Vazquez RN) 1015 (Given - Provider: Lizbeth Mcclure RN) 09 (G iven - Provider: Nicky Hardy) 10 mg, Oral, DAILY, First dose on Tue at 0900, Until Discontinued, Routine moxifloxacin (AVELOX) tablet 400 mg (CANCELED) 899 (G iven - Provider: Andria Vazquez RN) 400 mg, Oral, DAILY, First dose on Tue08/21/10 at 1845, Until Discontinued, Routine multivitamin (THERAGRAN) tablet 1 tablet (CANCELED) 09 16 (Given - Provider: Andria Vazquez RN) 1015 (Given - Provider: Lizbeth Mcclure RN) 09 (G iven - Provider: Nicky Hardy) 1 tablet, Oral, DAILY, First dose on Tue06/22/11 at 0900, Until Discontinued, Routine mycophenolate (CELLCEPT) capsule 500 mg 916 (Given - Provider: Andria Vazquez RN)2099 (Given - Provider: Ashley De Leon, SHEILA) 1015 (Given - Provider: Lizbeth Mcclure, SHEILA)2015 (Given - Provider: Andria Vazquez RN) 0900 (Given - Provider: Nicky Hardy) 500 mg, Oral, 2 TIMES DAILY, First dose on Tue06/21/11 at 2100, Until Discontinued, Routine propranolol (INDERAL LA) SR Capsule 160 mg (CANCELED) 916 (Given - Provider: Andria Vazquez RN)2099 (Given - Provider: Ashley De Leon RN) 1015 (Given - Provider: Lizbeth Mcclure RN)2015 (Given - Provider: Andria Vazquez RN) 09 (Given - Provider: Nicky Hardy) 160 mg, Oral, 2 TIMES DAILY, First dose on Tue06/21/11 at 2100, Until Discontinued, Routine senna-docusate (PERICOLACE) 8.6-50 mg per tablet 1-4 t ablet 916 (Given - Provider: Andria Vazquez RN)2099 [...] Comment: IV running)1800 (Given - Provider: Lizbeth Mcclure, SHEILA) 0600 (Not Given - Provider: Jael Vela, SHEILA - Reason: See comment - Comment: running [...] (CANCELED) 0917 (Giv en - Provider: Andria Vazquez, RN)2100 (Given - Provider: Ashley De Leon, SHEILA) 1016 (Given - Provider: Lizbeth Mcclure, SHEILA)2017 (Given - Provider: Andria Vazquez RN) 0900 (Given - Provider: Nicky Hardy) 1 mg, Oral, 2 TIMES DAILY, First dose on Tue06/21/11 at 2100, Until Discontinued, Routine vancomycin 1 g in sodium chloride 0.9% 250 mL ( ) 0100 (Not Given - Provider: Nikolay Wyatt, SHEILA - Reason: See comment - Comment: med [...] (CANCELED) 0230 (New Bag - Provider: Mer Stokes, SHEILA) 100 mL/hr, at 100 mL/hr, Intravenous, CO NTINUOUS, Starting Tue06/23/11 at 0230, Until Tue06/24/11 at 1215 PRN Medication Order 06/22/2011 06/23/2011 06/24/2011 bisacodyl (DULCOLAX) suppository 10 mg (CANCELED) 1523 (Given - Provider: Lizbeth Mcclure, SHEILA) 10 mg, Rectal, 2 TIMES DAILY PRN, Starti ng Tue06/23/11 at 1146, Until Tue06/24/11 at 1633, [...] Andria Vazquez RN)2105 (Given - Provider: Ashley eD Leon RN) 0310 (Given - Provider: Mer anderson RN)0701 (Not Given - Provider: Mer Stokes, SHEILA - Reason: Patient Unable - Comment: patient had vomited)1214 (Given - Provider: Lizbeth Mcclure, SHEILA) 2-6 mg, Oral, EVERY 3 HOURS PRN, Startin g Tue06/22/11 at 1500, Until Tue06/24/11 at 1633, Pain, Routine ondansetron (ZOFRAN) injection 4 mg (CANCELED) 0020 (G iven - Provider: Mer Stokes, SHEILA) 0816 (Given - Provider: Lizbeth Mcclure, SHEILA) 4 mg, Intravenous, EVERY 8 HOURS PRN, St arting 06/21/11 at 1730, Until Lucie 06/24/11 at 1633, Nausea, Vomiting, Routine OXYcodone (ROXICODONE) immediate release tablet 15 mg (CANCELED) 0918 (Given - Provider: Andria Vazquez RN) 15 mg, Oral, EVERY 4 HOURS PRN, Starting 06/21/11 at 1730, Until Tu06/22/11 at 1143, Pain, severe pain, For severe pain. Do not exceed 15 mg in 4 hours. If pain not relieved, call provider., Routine documented in this encounter Care Teams Ex Chef Relationship Specialty Start Date End Date Candido Jenkins MD PCP - General 05/20/11 04/01/13 [address] [place] [address] documented as of this encounter
--- OUTSIDE RECORDS SUMMARY | 2022-06-16 12:35 | XMS_ITS | Encounter Summary ---
:1955 Author Organization [facility] [place] [address] Care Team Providers Name Role Phone Candido Jenkins MD Primary Care Provider Reason for Visit Reason Comments Wound Check s/p Right BKA Dos 06/21/11 Encounter Details Date Type Department Care Team Description 12/02/2011 Follow-Up Orthopaedics at [facility], DR CRISTIAN Olsen, below knee, L; 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 He [...] Rojas MD [facility] Neurology [place], [place] [phone] (Oscar escobedo) 06/29/2022 Appointment Cardiology Violetta Sanford M D [address] [place] [address] (Oscar escobedo) 06/30/2022 Infusion Hematology and Oncology 07/14/2022 Infusion Hematology and Oncology 07/28/2022 Infusion Hematology and Oncology 08/11/2022 Infusion Hematology and Oncology 08/16/2022 Office Visit Audiology Mindy Moody AUD [facility] AUDIOLOGY [place], [place] [address] (Wo rk) 11/04/2022 Office Visit Rheumatology Dante Freedman, PA [facility] RHEUMATOLOGY [place], [place] [address] (Wo rk) documented as of [...] uncontrolled documented in this encounter Care Teams Die Trimmer Relationship Specialty Start Date End Date Candido Jenkins MD PCP - General 05/20/11 04/01/[address] [place] [address] documented as of this encounter
--- OUTSIDE RECORDS SUMMARY | 2022-06-16 12:35 | XMS_ITS | Encounter Summary ---
:1955 Author Organization [facility] Address [facility] [place] [address] Care Team Providers Name Role Phone Candido Jenkins MD Primary Care Provider Encounter Details Date Type Department Care Team Description 07/29/2011 Follow-Up Orthopaedics at [facility], DR FOSTER Type II diabetes mellitus wi th renal manifestations; [facility] Lizzy Alaniz, SHEILA DEPT OF ORTHOPAEDICS S/P BKA (below knee amputation) - right lower extremity; [place] [address] Diabetes mellitus with neuro mendy; [phone] Amputee, below knee, L Social History Tobacco [...] Rojas MD [facility] Neurology [place], [place] [phone] (Oscar escobedo) 06/29/2022 Appointment Cardiology Violetta Sanford M D [address] [place] [address] (Oscar esocbedo) 06/30/2022 Infusion Hematology and Oncology 07/14/2022 Infusion Hematology and Oncology 07/28/2022 Infusion Hematology and Oncology 08/11/2022 Infusion Hematology and Oncology 08/16/2022 Office Visit Audiology Mindy Moody AUD [facility] AUDIOLOGY DEPT [place], [place] [address] (Wo rk) 11/04/2022 Office Visit Rheumatology Dante Freedman PA [facility] ER RHEUMATOLOGY [place], [place] [address] (Wo rk) documented as of [...] knee documented in this encounter Care Teams Cable Ferry Operator Relationship Specialty Start Date End Date Candido Jenkins MD PCP - General 05/20/11 04/01/13 [address] [place] [address] documented as of this encounter
--- OUTSIDE RECORDS SUMMARY | 2022-06-16 12:35 | XMS_ITS | Encounter Summary ---
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 He [...] Rojas MD [facility] Neurology [place], [place] [phone] (Wo gregg) 06/29/2022 Appointment Cardiology Violetta Sanford M D [address] [place] [address] (Oscar escobedo) 06/30/2022 Infusion Hematology and Oncology 07/14/2022 Infusion Hematology and Oncology 07/28/2022 Infusion Hematology and Oncology 08/11/2022 Infusion Hematology and Oncology 08/16/2022 Office Visit Audiology Mindy Moody AUD [facility] AUDIOLOGY DEPT [place], [place] [address] (Wo rk) 11/04/2022 Office Visit Rheumatology Dante Freedman PA [facility] RHEUMATOLOGY [place], [place] [address] (Wo rk) documented as of [...] complicated documented in this encounter Care Teams Air Brush Operator Relationship Specialty Start Date End Date Candido Jenkins MD PCP - General 05/20/11 04/01/13 [address] [place] [address] documented as of this encounter
--- OUTSIDE RECORDS SUMMARY | 2022-06-16 12:35 | XMS_ITS | Encounter Summary ---
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 He will call with any change in his incision, fever, chills, malaise or concerns about his stump. Dr. Montez supervised this visit documented in this encounter Plan of Treatment Upcoming Encounters Date Type Specialty Care Team Description 06/16/2022 Infusion Hematology and Oncology 06/21/2022 Office Visit Neurology Tyler Rojas MD [facility] Neurology [place], [place] [phone] (Oscar escobedo) 06/29/2022 Appointment Cardiology Violetta Sanford M D [address] [place] [address] (Oscar escobedo) 06/30/2022 Infusion Hematology and Oncology 07/14/2022 Infusion Hematology and Oncology 07/28/2022 Infusion Hematology and Oncology 08/11/2022 Infusion Hematology and Oncology 08/16/2022 Office Visit Audiology Mindy Moody AUD [facility] AUDIOLOGY [place], [place] [address] (Wo rk) 11/04/2022 Office Visit Rheumatology Dante Freedman PA [facility] RHEUMATOLOGY [place], [place] [address] (Wo rk) documented as of [...] knee documented in this encounter Care Teams Production Machine Tender Relationship Specialty Start Date End Date Candido Jenkins MD PCP - General 05/20/11 04/01/13 [address] [place] [address] documented as of this encounter
--- OUTSIDE RECORDS SUMMARY | 2022-06-16 12:35 | XMS_ITS | Encounter Summary ---
:1955 Author Organization [facility] [place] [address] Care Team Providers Name Role Phone Candido Jenkins MD Primary Care Provider Encounter Details Date Type Department Care Team Description 02/23/2012 Follow-Up Solid Organ Transplant Karen Chino APRN [facility] [place] [address] Transplanted kidney; at [facility] Candido Jenkins MD [address] [place] [address] [phone] Need for prophylactic immunotherapy; [facility] [place] [address] Social History Tobacco Use Types Packs/Day [...] EDT documented in this encounter Progress Notes [place] Karen Zurita, HYDRO GENERATION MANAGER - 02/24/2012 4:17 PM EDT Subjective: Patient [...] talkative, large statured, well-appearing 56yo male in [facility]. HENT: Head: Normocephalic and atraumatic. Eyes: Conjunctivae [...] ??? Appearance UA Clear Clear ??? Spec [place] UA 1.011 1.002 - 1.030 ??? Color [...] continue routine f/u with Dr. Hernandez and [facility] endocrinology. Ptnt is next d/t see Dr. [...] Tyler Rojas MD [facility] Neurology [place], [place] [phone] (Wo rk) 06/29/2022 Appointment Cardiology Violetta Sanford M D [address] [place] [address] (Wo rk) 06/30/2022 Infusion Hematology and Oncology 07/14/2022 Infusion Hematology and Oncology 07/28/2022 Infusion Hematology and Oncology 08/11/2022 Infusion Hematology and Oncology 08/16/2022 Office Visit Audiology Mindy Moody AUD [facility] AUDIOLOGY DEPT [place], [place] [address] (Wo rk) 11/04/2022 Office Visit Rheumatology Dante Freedman PA [facility] RHEUMATOLOGY [place], [place] [address] (Wo rk) documented as of [...] Component Value Ref Test Analysis Performed At [facility] Range Method Time Signature BKV Urine Not Detected [facility] Result [facility] BKV Urine BK Virus Urine Result Interpretation [facility] Result: BK Virus Not Detected log concentration: Not detected Assay Range: urine: 3.04-9.04 log copies/mL (1.1x10^3 - 1.1x10^9 copies/mL ) Results are reported as log copies/mL. ??Changes of less than 1.0 log between serial samples may not be clinically significant. Methods: Quantitative real-time polymerase chain reaction (PCR) with of viral DNA isolated from urine was performed using Eragen BKV (ASR) reagents and the Applied Youku 7500 Fast Real-Time PCR System. In addition, the PCR product sequence is confirmed using physical properties (melt curve analysis). This test was developed and its performance determined by the [facility] Molecular Pathology Laboratory. It has not been [...] / / Volume Laterality Urine specimen 02/23/2012 10: 2 3:48 (specimen) AM EDT PM EDT Resulting Agency Comment Spec In Lab Alejo Garnett MD HEMATOLOGY ORDERABLES Performing Organization Address City/[facility]/[place] [address] CERNER MILLENNIUM Protein/Creatinine Ratio, urine (02/23/2012 10:05 AM EDT) P athologist Signature U Creatinine 98 mg/dL CERNER MILLENNIUM U Protein Ran 12 0 - 12 CERNER mg/dL MILLENNIUM Prot/Cre Ratio 0.1 ratio CERNER MILLENNIUM Specimen Anatomical Collection Method Collection Time Receive d Time (Source) Location / / Volume Laterality Urine specimen 02/23/2012 10: 2 (specimen) AM EDT 10:13 AM EDT Resulting Agency Comment Spec In Lab Alejo Garnett MD URINE ORDERABLES Performing Organization Address City/State/ZIP Code Phon e Number [address] CERNER MILLENNIUM Phosphorus, urine, random (02/23/2012 10:05 AM EDT) P athologist Signature U Phosphorus 64.2 mg/dL CERNER MILLENNIUM Specimen Anatomical Collection Method Collection Time Receive d Time (Source) Location / / Volume Laterality Urine specimen 02/23/2012 10: 2 (specimen) AM EDT 10:13 AM EDT Resulting Agency Comment Spec In Lab Alejo Garnett MD URINE ORDERABLES Performing Organization Address City/State/ZIP Code Phon e Number [address] CERNER MILLENNIUM Calcium Creatinine Ratio, random urine (02/23/2012 10:05 AM EDT) P athologist Signature U Calcium 0.3 mg/dL [facility] U Creatinine 98 mg/dL [facility] MILLENNIUM Ca/Cre Ratio <0.01 ratio CERNER MILLENNIUM Specimen Anatomical Collection Method Collection Time Receive d Time (Source) Location / / Volume Laterality Urine specimen 02/23/2012 10:05 2 (specimen) AM EDT 10:13 AM EDT Resulting Agency Comment Spec In Lab Alejo Garnett MD URINE ORDERABLES Performing Organization Address City/[facility]/ZIP Code Phon e Number [address] CERNER MILLENNIUM Urinalysis with microscopic (02/23/2012 10:05 AM EDT) Patholo gist Method Time Signature Glucose UA Negative Negative CERNER mg/dL MILLENNIUM Protein UA Negative mg/dL CERNER MILLENNIUM Bilirubin UA Negative Negative CERNER mg/dL MILLENNIUM Urobilinogen UA Normal mg/dL [facility] MILLENNIUM pH UA 5.0 5.0 - 8.0 CERNER MILLENNIUM Blood UA Negative mg/dL CERNER MILLENNIUM Ketones UA Negative mg/dL CERNER MILLENNIUM Nitrite UA Negative CERNER MILLENNIUM Leukocytes UA Negative mcL CERNER MILLENNIUM Appearance UA Clear Clear CERNER MILLENNIUM Spec [place] UA 1.011 1.002 - CERNER 1.030 MILLENNIUM [...] Organization Address City/State/[place] [address] CERNER MILLENNIUM (ABNORMAL) DIFFERENTIAL, AUTOMATED (02/23/2012 9:53 AM EDT) [facility] Method Time Signature Neutrophils % 55.4 34.0 [...] Organization Address City/State/[place] [address] CERNER MILLENNIUM Vitamin B12 (02/23/2012 9:53 AM EDT) athologist Signature Vitamin B-12 625 207 - 974 CERNER pg/mL MILLENNIUM Specimen Anatomical Collection Method Collection Time Receive d Time (Source) Location / / Volume Laterality Blood specimen 02/23/2012 9:53 AM 012 (specimen) EDT 10:00 AM EDT Resulting Agency Comment Spec In Lab Alejo Garnett MD CHEMISTRY ORDERABLES Performing Organization Address City/[facility]/ZIP Code Phon e Number [address] CERNER MILLENNIUM (ABNORMAL) Iron and TIBC (02/23/2012 9:53 AM EDT) Analysis Performed At [facility] Signature Iron 45 45 - 160 CERNER [...] CHEMISTRY ORDERABLES Performing Organization Address [facility] Phon e Number [address] CERNER MILLENNIUM (ABNORMAL) Hemoglobin A1c (02/23/2012 9:53 AM EDT) Analysis Performed At [facility] Signature Hemoglobin A1C 8.1 (H) 4.3 - [...] hemoglobinopathies. Additional resources are available on [facility] ADA website: ??http://professional.diabetes.org/gluc osecalculator.aspx Reference: Scooby MALDONADO, Nba Gilbert, Sydnee R, et al. ??Tr anslating the A1C assay into estimated average glucose values. ??Diabetes Care 2008:31(8):8439-4983. Specimen Anatomical Collection Method Collection Time Receive d Time (Source) Location / / Volume Laterality Blood specimen 02/23/2012 9:53 AM 012 (specimen) EDT 10:00 AM EDT Resulting Agency Comment Spec In Lab Alejo Garnett MD CHEMISTRY ORDERABLES Performing Organization Address City/State/[place] [address] [facility] Folate, serum (02/23/2012 9:53 AM EDT) athologist [...] Organization Address City/State/ZIP Code Phon e Number [place] [id number] CERNER MILLENNIUM Ferritin (02/23/2012 9:53 AM EDT) athologist Signature Ferritin 199 30 - 400 CERNER ng/mL [facility] Comment: Pediatric reference ranges not verified at [facility], interpret with caution. Reference ranges for females [...] Address City/State/ZIP Code Phon e Number [place] [address] CERNER MILLENNIUM (ABNORMAL) VIT D Total Evaluation (02/23/2012 9:53 AM EDT) athologist Signature 25-OH Vit D 20 (L) 30 - 100 CERNER Total ng/mL [facility] Comment: Deficient <10 ng/mL Insufficient 10 [...] of 08/31/2011 the Vitamin D Total, 25 [place] xy assays are being analyzed by the [facility] Chemistry Laboratory. ??There is NO CHANGE in units. ??Please contact the chemistry laboratory at [phone] with ques tions. Specimen Anatomical Collection Method Collection Time Receive d Time (Source) Location / / Volume Laterality Blood specimen 02/23/2012 9:53 AM 012 (specimen) EDT 10:00 AM EDT Resulting Agency Comment Spec In Lab Alejo Garnett MD CHEMISTRY ORDERABLES Performing Organization Address City/[facility]/ZIP Code Phon e Number [address] CERNER MILLENNIUM Vitamin D, dihydroxy 1,25 (02/23/2012 9:53 AM EDT) athologist Signature Vit D 1,25 23 18 - 64 CERNER pg/mL MILLENNIUM Comment: Test Performed by: [place] [address] Dining Host: Narayan richards III, M.D. Specimen Anatomical Collection Method Collection Time Receive d Time (Source) Location / / Volume Laterality Blood specimen 02/23/2012 9:53 AM 012 2:38 (specimen) EDT PM EDT Resulting Agency Comment Spec In Lab Alejo Garnett MD CHEMISTRY ORDERABLES Performing Organization Address City/State/ZIP Code Phon e Number [address] CERNER MILLENNIUM (ABNORMAL) PTH (02/23/2012 9:53 AM EDT) athologist Signature PTH 90 (H) 15 - 65 CERNER pg/mL MILLENNIUM Specimen Anatomical Collection Method Collection Time Receive d Time (Source) Location / / Volume Laterality Blood specimen 02/23/2012 9:53 AM 012 (specimen) EDT 10:00 AM EDT Resulting Agency Comment Spec In Lab Alejo Garnett MD CHEMISTRY ORDERABLES Performing Organization Address City/[facility]/[place] [address] CERNER MILLENNIUM Tacrolimus level (02/23/2012 9:53 AM EDT) athologist Signature Tacrolimus Lvl 5.2 ng/mL CERNER MILLENNIUM Comment: Trough therapeutic: 5-15 ng/mL Specimen Anatomical Collection Method Collection Time Receive d Time (Source) Location / / Volume Laterality Blood specimen 02/23/2012 9:53 AM 012 1:26 (specimen) EDT PM EDT Resulting Agency Comment Spec In Lab Alejo Garnett MD CHEMISTRY ORDERABLES Performing Organization Address City/[facility]/ZIP Code Phon e Number [address] CERNER MILLENNIUM (ABNORMAL) Uric [...] Garnett MD CHEMISTRY ORDERABLES Performing Organization Address City/[facility]/[place] [address] CERNER MILLENNIUM Phosphorus (02/23/2012 9:53 AM EDT) P athologist Signature Phosphorus 3.1 2.5 - 4.5 CERNER mg/dL MILLENNIUM Specimen Anatomical Collection Method Collection Time Receive d Time (Source) Location / / Volume Laterality Blood specimen 02/23/2012 9:53 AM 012 (specimen) EDT 10:00 AM EDT Resulting Agency Comment Spec In Lab Alejo Garnett MD CHEMISTRY ORDERABLES Performing Organization Address City/[facility]/ZIP Code Phon e Number [address] CERNER MILLENNIUM Magnesium (02/23/2012 [...] Address City/State/ZIP [place] [address] HOLLI MÉNDEZ (ABNORMAL) Lipid panel (fasting) (02/23/2012 9:53 AM EDT) P athologist Signature Chol, Total 107 <=199 mg/dL CERNER MILLENNIUM Comment: Recommendations of the NCEP Adult Treatm ent Panel for the following risk cutoff thresholds for the [place] populatio n: Desirable: <200 mg/dL Borderline High: 200-239 mg/dL High: > or = 240 mg/dL Triglycerides 209 (H) <=149 mg/dL CERDINH MILLENN IUM Comment: Reference Range: Normal triglycerides: ??<150 mg/dL Borderline high: ??150-199 mg/dL High: ??200-499 mg/dL Very high: ??>hn=622 mg/dL SERENA 2001; 285(19):8602-2049 HDL 18 (L) >=40 mg/dL CERDINH COLEENNIUM Comment: Reference range: ??Low HDL: ?? < 40 mg/dL ??Normal: ?40-60 mg/dL ??Desirable: > 60 mg/dL SERENA 2001; 285(19):8369-8533 LDL Cholesterol 47 <=99 mg/dL HOLLI JASON Comment: Reference range: ?? Optimal: ?<100 mg/dL ?? Near Optimal/Above Optimal: ?? 100-1 29 mg/dL ?? Borderline high: ?130-159 mg/dL ?? High: ? 160-189 mg/dL ?? Very high: ?>tc=336 mg/dL SERENA 2001: 285(19):9304-1437 Chol/HDL Ratio 5.9 ratio CERNER MILLENNI UM Comment: A Cholesterol to HDL ratio below 4:1 is desirable. ??Studies suggest that increased CAD risk occurs at ratios abov e 5 for females and above 6 for men. ? [place] Heart Association ??(htt p://www.americanheart.org) ? Edna Int Med, 1994; 121:641 ? AM J Med, 1998; 105(1A):48S Specimen Anatomical Collection Method Collection Time Receive d Time (Source) Location / / Volume Laterality Blood specimen 02/23/2012 9:53 AM 012 (specimen) EDT 10:00 AM EDT Resulting Agency Comment Spec In Lab Alejo Garnett MD CHEMISTRY ORDERABLES Performing Organization Address City/[facility] Phon e Number [address] CERNER MILLENNIUM (ABNORMAL) Reticulocyte [...] Garnett MD HEMATOLOGY ORDERABLES Performing Organization Address City/[facility] [place] [address] CERNER MILLENNIUM (ABNORMAL) CBC [...] 32.0 - CERNER 36.5 gm/dL MILLENNIUM Platelets 199 145 - 370 CERNER x10(3)/mcL MILLENNIUM RDWSD 49.7 (H) 35.0 - CERNER 46.0 fL MILLENNIUM [...] Organization Address City/State/[place] [address] CERNER MILLENNIUM (ABNORMAL) CMP [...] of Diabetes Mellitus, Position Statement from the [place] Diabetes Association. ??Diabete s Care, Volume 33, Supplement 1, Jul 2009 BUN 34 (H) 10 - 20 mg/dL CERNER MILLENNIU M Creatinine 1.86 (H) 0.80 - 1.50 mg/dL CERNER MILL ENNIUM Comment: Please note that the pediatric reference intervals supplied above were not validated at [facility]. Results from pediatri [...] in patients with diabetic kidney disease. References: http://nkdep.nih.gov/resources/NKMAP_Sug gestn4Labs_0606_508.pdf http://www.kidney.org/professionals/kls/ pdf/faq_gfr.pdf Vonnie K, Waqas NA, [...] Organization Address City/State/[place] [address] HOLLI Haowj.comIUM U24 HRS AND VOLUME (02/23/2012 7:30 AM EDT) P athologist Signature Hours 24 hour(s) CERNER Collected MILLENNIUM Urine TV (ml) 3200 mL CERNER MILLENNIUM Specimen Anatomical Collection Method Collection Time Receive d Time (Source) Location / / Volume Laterality Urine specimen 02/23/2012 7:30 AM 012 (specimen) EDT 10:46 AM EDT Resulting Agency Comment Spec In Lab Alejo Garnett MD CHEMISTRY ORDERABLES Performing Organization Address City/[facility]/ZIP Code Phon e Number [address] CERNER MILLENNIUM Uric acid, urine, 24 hour (02/23/2012 7:30 AM EDT) P athologist Signature U24 Uric Conc 20.6 mg/dL CERNER MILLENNIUM U24 Uric Calc 0.66 0.25 - CERNER 0.80 MILLENNIUM gm/24hr Specimen Anatomical Collection Method Collection Time Receive d Time (Source) Location / / Volume Laterality Urine specimen 02/23/2012 7:30 AM 012 (specimen) EDT 10:46 AM EDT Resulting Agency Comment Spec In Lab Alejo Garnett MD URINE ORDERABLES Performing Organization Address City/[facility]/ZIP Code Phon e Number [address] CERNER MILLENNIUM (ABNORMAL) Phosphorus, urine, 24 hour (02/23/2012 7:30 AM EDT) P athologist Signature U24 Phos Conc 46.6 mg/dL CERNER MILLENNIUM U24 Phos Calc 1.5 (H) 0.4 - 1.3 CERNER gm/24hr MILLENNIUM Specimen Anatomical Collection Method Collection Time Receive d Time (Source) Location / / Volume Laterality Urine specimen 02/23/2012 7:30 AM 012 (specimen) EDT 10:46 AM EDT Resulting Agency Comment Spec In Lab Alejo Garnett MD URINE ORDERABLES Performing Organization Address City/[facility]/ZIP Code Phon e Number [address] CERNER MILLENNIUM (ABNORMAL) Calcium, urine, 24 hour (02/23/2012 7:30 AM EDT) P athologist Signature U24 Ca Conc <0.2 mg/dL [...] Garnett MD URINE ORDERABLES Performing Organization Address City/[facility]/[place] [address] CERNER MILLENNIUM (ABNORMAL) Creatinine, [...] Garnett MD URINE ORDERABLES Performing Organization Address City/[facility]/ZIP Code Phon e Number [address] CERNER MILLENNIUM (ABNORMAL) Creatinine [...] Organization Address City/State/[place] [address] CERNER MILLENNIUM (ABNORMAL) Protein, urine, 24 hour (02/23/2012 7:30 AM EDT) Analysis Performed At Patho logist Time Signature U24 Prot Conc 7 <=80 mg/dL [facility] U24 Prot Calc 0.22 (H) <=0.15 [facility] gm/24hr [facility] Specimen Anatomical Collection Method Collection Time Receive d Time (Source) Location / / Volume Laterality Urine specimen 02/23/2012 7:30 AM 012 (specimen) EDT 10:46 AM EDT Resulting Agency Comment Spec In Lab Alejo Garnett MD URINE ORDERABLES Performing Organization Address City/State/[place] [address] [facility] documented in this encounter Visit Diagnoses Diagnosis Transplanted kidney Kidney replaced by transplant Need for prophylactic immunotherapy Routine health maintenance Routine general medical examination at a health care facility documented in this encounter Care Teams Lens Assorter Relationship Specialty Start Date End Date Candido Jenkins MD PCP - General 05/20/11 04/01/13 [address] [place] [address] documented as of this encounter
--- OUTSIDE RECORDS SUMMARY | 2022-06-16 12:35 | XMS_ITS | Encounter Summary ---
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 He [...] Tyler Rojas MD [facility] Neurology [place], [place] [phone] (Wo rk) 06/29/2022 Appointment Cardiology Violetta Sanford M D [address] [place] [address] (Wo rk) 06/30/2022 Infusion Hematology and Oncology 07/14/2022 Infusion Hematology and Oncology 07/28/2022 Infusion Hematology and Oncology 08/11/2022 Infusion Hematology and Oncology 08/16/2022 Office Visit Audiology Mindy Moody AUD [facility] AUDIOLOGY [place], [place] [address] (Wo rk) 11/04/2022 Office Visit Rheumatology Dante Freedman PA [facility] RHEUMATOLOGY [place], [place] [address] ( rk) documented as [...] knee documented in this encounter Care Teams Gang Sawyer Relationship Specialty Start Date End Date Candido Jenkins MD PCP - General 05/20/11 04/01/13 [address] [place] [address] documented as of this encounter
--- OUTSIDE RECORDS SUMMARY | 2022-06-16 12:35 | XMS_ITS | Encounter Summary ---
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 He will call with any change in his incision, fever, chills, malaise or concerns about his stump. Dr. Subramanian supervised this visit documented in this encounter Miscellaneous Notes Miscellaneous - Jorje Nieves - 11/15/2011 8:45 AM EDT documented in this encounter Plan of Treatment Upcoming Encounters Date Type Specialty Care Team Description 06/16/2022 Infusion Hematology and Oncology 06/21/2022 Office Visit Neurology Tyler Rojas MD [facility] Neurology [place], [place] [phone] (Wo rk) 06/29/2022 Appointment Cardiology Violetta Sanford M D [address] [place] [address] (Wo rk) 06/30/2022 Infusion Hematology and Oncology 07/14/2022 Infusion Hematology and Oncology 07/28/2022 Infusion Hematology and Oncology 08/11/2022 Infusion Hematology and Oncology 08/16/2022 Office Visit Audiology Mindy Moody, [facility] [place]OLOGY [place], [place] [address] (Wo rk) 11/04/2022 Office Visit Rheumatology Dante Freedman, PA [facility] RHEUMATOLOGY [place], [place] [address] (Wo rk) documented as of [...] complicated documented in this encounter Care Teams Ems Educator Relationship Specialty Start Date End Date Candido Jenkins MD PCP - General 05/20/11 04/01/13 [address] [place] [address] documented as of this encounter
--- OUTSIDE RECORDS SUMMARY | 2022-06-16 12:35 | XMS_ITS | Encounter Summary ---
:1955 Author Organization [facility] [place] [address] Care Team Providers Name Role Phone Candido Jenkins MD Primary Care Provider Reason for Visit Reason Onset Date Comments Medication Refill 10/13/2011 Encounter Details Date Type Department Care Team Description 10/13/2011 Refill Solid Organ Transplant Karen Chino, S/P kidney transplant at [facility]ACT[facility]ISTANT (Primary Dx) [facility] [place] [address] TRANSPLANT SURGERY [phone] LEFT [place], [place] [address] (Wo rk) Social History Tobacco [...] MD [facility] Dr Farah [place] [phone] (Wo rk) 06/29/2022 Appointment Cardiology Violetta Sanford M D [address] [place], [place] [id number] (Wo rk) 06/30/2022 Infusion Hematology and Oncology 07/14/2022 Infusion Hematology and Oncology 07/28/2022 Infusion Hematology and Oncology 08/11/2022 Infusion Hematology and Oncology 08/16/2022 Office Visit Audiology Mindy Moody AUD [facility] AUDIOLOGY [place], [place] [address] (Wo rk) 11/04/2022 Office Visit Rheumatology Dante Freedman, PA [facility] RHEUMATOLOGY [place], [place] [address] (Wo rk) documented as of this encounter Visit Diagnoses Diagnosis S/P kidney transplant - Primary Kidney replaced by transplant documented in this encounter Care Teams Evp Head [employer] Experience Strategy Relationship Specialty Start Date End Date Candido Jenkins MD PCP - General 05/20/11 04/01/13 [address] [place] [address] documented as of this encounter
--- OUTSIDE RECORDS SUMMARY | 2022-06-16 12:35 | XMS_ITS | Encounter Summary ---
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 2. Use of behavioral tactics (eg. woon-ro-ppry communication, reduction of background noise, etc) tohelp compensate for the difficulties created by the loss. 3. Audiologic re-evaluation in one year, or sooner as medically indicated, to monitor hearing sensitivity. Prince Turner MS,[facility] Clinical Courtroom [place] [address] (fax) documented in this encounter Plan of Treatment Upcoming Encounters Date Type Specialty Care Team Description 06/16/2022 Infusion Hematology and Oncology 06/21/2022 Office Visit Neurology Tyler Rojas MD [facility] Neurology [place], [place] [phone] (Wo rk) 06/29/2022 Appointment Cardiology Violetta Sanford M D [address] [address] (Wo rk) 06/30/2022 Infusion Hematology and Oncology 07/14/2022 Infusion Hematology and Oncology 07/28/2022 Infusion Hematology and Oncology 08/11/2022 Infusion Hematology and Oncology 08/16/2022 Office Visit Audiology Mindy Moody AUD [facility] AUDIOLOGY [place], [place] 0[address] (Wo rk) 11/04/2022 Office Visit Rheumatology Dante Freedman PA [facility] RHEUMATOLOGY [place], [place] [address] (Wo rk) documented as of this encounter Visit Diagnoses Diagnosis Sensorineural hearing loss, bilateral - Primary Tinnitus Unspecified tinnitus documented in this encounter Care Teams Joint Setter Relationship Specialty Start Date End Date Candido Jenkins MD PCP - General 05/20/11 04/01/13 [address] [place] [address] documented as of this encounter
--- OUTSIDE RECORDS SUMMARY | 2022-06-16 12:35 | XMS_ITS | Encounter Summary ---
:1955 Author Organization [facility] Address [facility] [place] [address] Care Team Providers Name Role Phone Candido Jenkins MD Primary Care Provider Encounter Details Date Type Department Care Team Description 11/08/2011 Office Visit Audiology [place] [facility] Mindy Moody AUD [facility] [place] [address] Fitting and adjustment [facility] Wan De Dios MD [facility] [place] [address] (Primary Dx) [place] [id number] Social History Tobacco Use Types Packs/Day Years Used Date Smoking Tobacco: Former Cigarettes 2 20 Quit : 01/19/1993 Smokeless Tobacco: Never Alcohol Use Standard Drinks/Week Comments No 0 (1 standard drink = 0.6 oz pure alcoho l) Sex Assigned at Date Recorded Not on file documented as of this encounter Progress Notes Mindy Joiner AUD - 11/08/2011 10:09 AM EDT AUDIOLOGY HEARING [...] red case Beige faceplate/blue case Serial Number [id number] Battery Size 312 312 Battery Club PROGRAM/SETTINGS Fitting Algorithm DSL-Adult Same Verification Method REM Same Programs P1= Normal (automatic omnidirectional/directional tiffany) P4= Autocoil (not in memory rotation Same Disabled Features Push button Same Other Comments HEARING AID WARRANTY Original Fit Date 10/25/11 10/25/11 Current Status Under surveyor repair and L&D coverage until 11/01/13 Under surveyor repair and L&D coverage until 11/01/13 EARMOLD (if BTE GARCIA) Lab EM (style/material/vent/color) Impression Date Invoice # Tube/KAMILLA (length/dome/property field adjuster size) OTHER/COMMENTS Plan: Annual audiologic evaluation and hearing aid check. Patient was advised to contact the clinic if concerns arise in the interim. Wendi [place] [address] ; documented in this encounter Plan of Treatment Upcoming Encounters Date Type Specialty Care Team Description 06/16/2022 Infusion Hematology and Oncology 06/21/2022 Office Visit Neurology Tyler Rojas MD [facility] Neurology [place] [address] [phone] (Wo rk) 06/29/2022 Appointment Cardiology Violetta Sanford M D [address] [place] [address] (Wo rk) 06/30/2022 Infusion Hematology and Oncology 07/14/2022 Infusion Hematology and Oncology 07/28/2022 Infusion Hematology and Oncology 08/11/2022 Infusion Hematology and Oncology 08/16/2022 Office Visit Audiology Mindy Moody, WENDI [facility] AUDIOLOGY [place], [place] 0[address] (Wo rk) 11/04/2022 Office Visit Rheumatology Dante Freedman, PA [facility] RHEUMATOLOGY [place], [place] 0[address] (Wo rk) documented as of this encounter Visit Diagnoses Diagnosis Fitting and adjustment of hearing aid - Primary documented in this encounter Care Teams Installation Superintendent Relationship Specialty Start Date End Date Candido Jenkins MD PCP - General 05/20/11 04/01/13 [address] [place] [address] documented as of this encounter
--- OUTSIDE RECORDS SUMMARY | 2022-06-16 12:35 | XMS_ITS | Encounter Summary ---
:1955 Author Organization [facility] [place] [address] Care Team Providers Name Role Phone Candido Jenkins MD Primary Care Provider Reason for Visit Reason Comments Wound Check Right BKA Dos 06/21/11 Encounter Details Date Type Department Care Team Description 08/09/2011 Follow-Up [facility]edics at [facility], DR FOSTER Diabetes mellitus with neuro mendy; [facility] D rive S/P BKA (below knee amputati on) [place] [address] Social History Tobacco Use Types Packs/Day [...] Tyler Rojas MD [facility] Neurology [place], [place] [phone] (Oscar escobedo) 06/29/2022 Appointment Cardiology Violetta Sanford M D [address] [place] [address] (Oscar escobedo) 06/30/2022 Infusion Hematology and Oncology 07/14/2022 Infusion Hematology and Oncology 07/28/2022 Infusion Hematology and Oncology 08/11/2022 Infusion Hematology and Oncology 08/16/2022 Office Visit Audiology Mindy Moody AUD [facility] AUDIOLOGY DEPT [place], [place] [address] (Wo rk) 11/04/2022 Office Visit Rheumatology Dante Freedman PA [facility] RHEUMATOLOGY [place], [place] [address] (Wo rk) documented as of this encounter Visit Diagnoses Diagnosis Diabetes mellitus with neuropathy Type II or unspecified type diabetes fredo litus with neurological manifestations, not stated as uncontrolled S/P BKA (below knee amputation) - right lower extremity Lower limb amputation, below knee documented in this encounter Care Teams Charge Out Clerk Relationship Specialty Start Date End Date Candido Jenkins MD PCP - General 05/20/11 04/01/13 [address] [place] [address] documented as of this encounter
--- OUTSIDE RECORDS SUMMARY | 2022-06-16 12:35 | XMS_ITS | Encounter Summary ---
:1955 Author Organization [facility] [place] [address] Care Team Providers Name Role Phone Candido Jenkins MD Primary Care Provider Reason for Visit Reason Comments Follow Up Surgery RIGHT BKA. DOS Encounter Details Date Type Department Care Team Description 07/16/2011 Follow-Up [facility]opaedics [place] [facility], DR FOSTER Diabetes mellitus with neuro mendy; [facility] D rive S/P BKA (below knee amputati on) [place] [address] Social History Tobacco Use Types Packs/Day [...] Rojas MD [facility] Neurology [place], [place] [phone] (Oscar escobedo) 06/29/2022 Appointment Cardiology Violetta Sanford M D [address] [place] [address] (Oscar escobedo) 06/30/2022 Infusion Hematology and Oncology 07/14/2022 Infusion Hematology and Oncology 07/28/2022 Infusion Hematology and Oncology 08/11/2022 Infusion Hematology and Oncology 08/16/2022 Office Visit Audiology Mindy Moody AUD [facility] AUDIOLOGY DEPT [place], [place] [address] (Wo rk) 11/04/2022 Office Visit Rheumatology Dante Freedman PA [facility] RHEUMATOLOGY [place], [place] [address] (Wo rk) documented as of this encounter Visit Diagnoses Diagnosis Diabetes mellitus with neuropathy Type II or unspecified type diabetes fredo litus with neurological manifestations, not stated as uncontrolled S/P BKA (below knee amputation) - right lower extremity Lower limb amputation, below knee documented in this encounter Care Teams Drier Unloader Relationship Specialty Start Date End Date Candido Jenkins MD PCP - General 05/20/11 04/01/13 [address] [place] [address] documented as of this encounter
--- OUTSIDE RECORDS SUMMARY | 2022-06-16 12:35 | XMS_ITS | Encounter Summary ---
:1955 Author Organization [facility] Address [place] [address] Care Team Providers Name Role Phone Candido Jenkins MD Primary Care Provider Reason for Visit Reason Comments Right Leg Pain 06/21/11 R BKA Encounter Details Date Type Department Care Team Description 09/06/2011 Follow-Up [facility]opaedics at [facility], DR FOSTER Type II diabetes mellitus wi th renal manifestations; [facility] Giovana tyler S/P BKA (below knee amputati on) - right lower extremity; [place] [address] Diabetes mellitus with neuro mendy; [phone] Amputee, below knee, L Social History Tobacco [...] He will continue to follow with his programs assistant with respect to his blood sugars. He will call with any change in his incision, fever, chills, malaise or concerns about his stump. Dr. Montez supervised this visit documented in this encounter Plan of Treatment Upcoming Encounters Date Type Specialty Care Team Description 06/16/2022 Infusion Hematology and Oncology 06/21/2022 Office Visit Neurology Tyler Rojas MD [facility] [address] [place], [place] [phone] (Wo rk) 06/29/2022 Appointment Cardiology Violetta Sanford M D [address] [place] [address] (Wo rk) 06/30/2022 Infusion Hematology and Oncology 07/14/2022 Infusion Hematology and Oncology 07/28/2022 Infusion Hematology and Oncology 08/11/2022 Infusion Hematology and Oncology 08/16/2022 Office Visit Audiology Mindy Moody, WENDI [facility] AUDIOLOGY [place], [place] [address] (Wo rk) 11/04/2022 Office Visit Rheumatology Dante Freedman, PA [facility] RHEUMATOLOGY [place], [place] 0[address] (Wo rk) documented as of [...] knee documented in this encounter Care Teams Dump Attendant Relationship Specialty Start Date End Date Candido Jenkins MD PCP - General 05/20/11 04/01/13 [address] [place], [place] [address] documented as of this encounter
--- OUTSIDE RECORDS SUMMARY | 2022-06-16 12:35 | XMS_ITS | Encounter Summary ---
:1955 Author Organization [facility] [place] [address] Care Team Providers Name Role Phone Candido Jenkins MD Primary Care Provider Encounter Details Date Type Department Care Team Description 07/01/2011 Office Visit Orthopaedics at [facility] Henna Roy's arthropathy, diabe tic, R; [facility] MD Abi S/P BKA (below knee amputation) - [place] [address] ORTHOPAEDIC SURGERY [place] [address] Social History Tobacco Use Types Packs/Day Years [...] Tyler Rojas MD [facility] Neurology [place], [place] [phone] (Wo rk) 06/29/2022 Appointment Cardiology Violetta Sanford M D [facility] [address] [place] [address] (Wo rk) 06/30/2022 Infusion Hematology and Oncology 07/14/2022 Infusion Hematology and Oncology 07/28/2022 Infusion Hematology and Oncology 08/11/2022 Infusion Hematology and Oncology 08/16/2022 Office Visit Audiology Mindy Moody AUD [facility] AUDIOLOGY DEPT [place], [place] [address] (Wo rk) 11/04/2022 Office Visit Rheumatology Dante Freedman PA [facility] RHEUMATOLOGY [place], [place] [address] (Wo rk) documented as of this encounter Visit Diagnoses Diagnosis Charcot's arthropathy, diabetic, R Type II or unspecified type diabetes fredo litus with neurological manifestations, not stated as uncontrolled S/P BKA (below knee amputation) - right lower extremity Lower limb amputation, below knee documented in this encounter Care Teams Mobile Device Engineer Relationship Specialty Start Date End Date Candido Jenkins MD PCP - General 05/20/11 04/01/13 [address] [place], [place] [address] documented as of this encounter
--- OUTSIDE RECORDS SUMMARY | 2022-06-16 12:35 | XMS_ITS | Encounter Summary ---
:1955 Author Organization [facility] [place] [address] Care Team Providers Name Role Phone Candido Jenkins MD Primary Care Provider Reason for Visit Reason Comments Wound Check Right BKA Dos 06/21/11 Encounter Details Date Type Department Care Team Description 07/08/2011 [place]-Up [facility]edics [place] [facility] DR CRISTIAN Olsen, below knee, L; [facility] Giovana Roblero's arthropathy, diabe tic, R; [place] [address] Diabetes mellitus with neuro menyd; [phone] Tremor, essenti al; S/P BKA (below knee [...] Rojas MD [facility] Neurology [place], [place] [phone] (Oscar escobedo) 06/29/2022 Appointment Cardiology Violetta Sanford M D [address] [place] [address] ( gregg) 06/30/2022 Infusion Hematology and Oncology 07/14/2022 Infusion Hematology and Oncology 07/28/2022 Infusion Hematology and Oncology 08/11/2022 Infusion Hematology and Oncology 08/16/2022 Office Visit Audiology Mindy Moody AUD [facility] AUDIOLOGY [place], [place] [address] (Oscar escobedo) 11/04/2022 Office Visit Rheumatology Dante Freedman PA [facility] RHEUMATOLOGY [place], [place] [address] (Wo rk) documented as of [...] knee documented in this encounter Care Teams Contracting Analyst Relationship Specialty Start Date End Date Candido Jenkins MD PCP - General 05/20/11 04/01/13 [address] [place] [address] documented as of this encounter
--- OUTSIDE RECORDS SUMMARY | 2022-06-16 12:35 | XMS_ITS | Encounter Summary ---
:1955 Author Organization [facility] [address] Care Team Providers Name Role Phone Candido Jenkins MD Primary Care Provider Reason for Visit Reason Onset Date Comments Questions 08/24/2011 about asa Encounter Details Date Type Department Care Team Description 08/24/2011 Telephone Orthopaedics at [facility] [place] [place] Nikolay Montez MD Questions (about [place]) [place] [address] ORTHOPAEDIC SURGERY [place], [place] [address] Social History Tobacco Use Types [...] Tyler Rojas MD [facility] Neurology [place], [place] [phone] (Wo rk) 06/29/2022 Appointment Cardiology Violetta Sanford M D [address] [place] [address] (Wo rk) 06/30/2022 Infusion Hematology and Oncology 07/14/2022 Infusion Hematology and Oncology 07/28/2022 Infusion Hematology and Oncology 08/11/2022 Infusion Hematology and Oncology 08/16/2022 Office Visit Audiology Mindy Moody AUD [facility] AUDIOLOGY [place], [place] [address] (Wo rk) 11/04/2022 Office Visit Rheumatology Dante Freedman PA [facility] RHEUMATOLOGY [place], [place] [address] (Wo rk) documented as of this encounter Visit Diagnoses Diagnosis S/P BKA (below knee amputation) - right lower extremity - Primary Lower limb amputation, below knee documented in this encounter Care Teams Chalk Cutter Relationship Specialty Start Date End Date Candido Jenkins MD PCP - General 05/20/11 04/01/13 [address] [place], [place] [address] documented as of this encounter
--- OUTSIDE RECORDS SUMMARY | 2022-06-16 12:35 | XMS_ITS | Encounter Summary ---
:1955 Author Organization [facility] [place] [place] [address] Care Team Providers Name Role Phone Candido Jenkins MD Primary Care Provider Reason for Visit Reason Comments Follow Up Surgery s/p Right BKA Dos 06/21/11 Encounter Details Date Type Department Care Team Description 09/30/2011 Follow-[facility] [place] [facility] [place] FOSTER Diabetes mellitus with neuro mendy; [facility] D rive S/P BKA (below knee amputati on) - right lower extremity; [place] [address] Amputee, below knee, L; [phone] Delayed wound h ealing Social History Tobacco [...] He will continue to follow with his rn renal with respect to his blood sugars. He will call with any change in his incision, fever, chills, malaise or concerns about his stump. Dr. Roy supervised this visit documented in this encounter Plan of Treatment Upcoming Encounters Date Type Specialty Care Team Description 06/16/2022 Infusion Hematology and Oncology 06/21/2022 Office Visit Neurology Tyler Rojas MD [facility] Neurology [place], [place] [phone] (Oscar escobedo) 06/29/2022 Appointment Cardiology Violetta Sanford M D [address] [place] [address] (Oscar escobedo) 06/30/2022 Infusion Hematology and Oncology 07/14/2022 Infusion Hematology and Oncology 07/28/2022 Infusion Hematology and Oncology 08/11/2022 Infusion Hematology and Oncology 08/16/2022 Office Visit Audiology Mindy Moody AUD [facility] AUDIOLOGY [place], [place] [address] (Wo rk) 11/04/2022 Office Visit Rheumatology Dante Freedman PA [facility] RHEUMATOLOGY [place], [place] [address] (Wo rk) documented as of [...] complicated documented in this encounter Care Teams Mash Filter Operator Relationship Specialty Start Date End Date Candido Jenkins MD PCP - General 05/20/11 04/01/13 [address] [place] [address] documented as of this encounter
--- OUTSIDE RECORDS SUMMARY | 2022-06-16 12:35 | XMS_ITS | Encounter Summary ---
:1955 Author Organization [facility] Address [facility] [place] [address] Care Team Providers Name Role Phone Candido Jenkins MD Primary Care Provider Reason for Visit Reason Comments Wound Check s/p Right BKA Dos 06/21/11 Encounter Details Date Type Department Care Team Description 02/01/2012 Follow-Up [facility]ics [place] [facility], DR FOSTER Delayed wound healing; [facility] D rive S/P BKA (below knee amputati on) - right lower extremity; [place] [address] Charcot's arthropathy, diabe tic, R; [phone] Diabetes [facility] with neuropathy Social History Tobacco Use [...] Rojas MD [facility] Neurology [place], [place] [phone] (Wo rk) 06/29/2022 Appointment Cardiology Violetta Sanford M D [facility] [address] [place] [address] (Wo rk) 06/30/2022 Infusion Hematology and Oncology 07/14/2022 Infusion Hematology and Oncology 07/28/2022 Infusion Hematology and Oncology 08/11/2022 Infusion Hematology and Oncology 08/16/2022 Office Visit Audiology Mindy Moody AUD [facility] AUDIOLOGY [place], [place] [address] (Wo rk) 11/04/2022 Office Visit Rheumatology Dante Freedman PA [facility] RHEUMATOLOGY [place], [place] [address] (Wo rk) documented as of this encounter Visit Diagnoses Diagnosis Delayed wound healing Open wound(s) (multiple) of unspecified site(s), complicated S/P BKA (below knee amputation) - right lower extremity Lower limb amputation, below knee Charcot's arthropathy, diabetic, R Type II or unspecified type diabetes fredo litus with neurological manifestations, not stated as uncontrolled documented in this encounter Care Teams Game Engineer Relationship Specialty Start Date End Date Candido Jenkins MD PCP - General 05/20/11 04/01/13 [address] [place] [address] documented as of this encounter
--- OUTSIDE RECORDS SUMMARY | 2022-06-16 12:35 | XMS_ITS | Encounter Summary ---
:1955 Author Organization [facility] [place] [address] Care Team Providers Name Role Phone Candido Jenkins MD Primary Care Provider Encounter Details Date Type Department Care Team Description 10/18/2011 Follow[place]Up [place] [facility] [place] Boyd MD Tremor, essential [facility] (Pr imary Dx) [place] [address] NEUROLOGY DEPT. [phone] [place] [id number] (Wo rk) Social History Tobacco Use Types [...] 11:22 AM EDT Copy: Candido Jenkins M.D. [facility] Medicine [address] [place] [id number] I saw Leroy Torres today in follow [...] Rojas MD [facility] Neurology [place], [place] [phone] ([facility]) 06/29/2022 Appointment Cardiology Violetta Sanford M D [facility] [address] [place] [address] ([facility]) 06/30/2022 Infusion Hematology and Oncology 07/14/2022 Infusion Hematology and Oncology 07/28/2022 Infusion Hematology and Oncology 08/11/2022 Infusion Hematology and Oncology 08/16/2022 Office Visit Audiology Mindy Moody AUD [facility] AUDIOLOGY [place], [place] [address] ([facility]) 11/04/2022 Office Visit Rheumatology Dante Freedman PA [facility] RHEUMATOLOGY [place], [place] [address] (Wo rk) documented as of this encounter Visit Diagnoses Diagnosis Tremor, essential - Primary Essential and other specified forms of t remor documented in this encounter Care Teams Aerodynamic Consultant Relationship Specialty Start Date End Date Candido Jenkins MD PCP - General 05/20/11 04/01/13 [address] [place] [address] documented as of this encounter
--- OUTSIDE RECORDS SUMMARY | 2022-06-16 12:35 | XMS_ITS | Encounter Summary ---
:1955 Author Organization [facility] Address [address] [place] [address] Care Team Providers Name Role Phone Candido Jenkins MD Primary Care Provider Encounter Details Date Type Department Care Team Description 10/25/2011 Office Visit Audiology at [facility] Mindy Moody, Sensorineural hearing [facility] AUD loss, bilateral Drive [facility] (Primary Dx) [place], [place] CENTER [address] AUDIOLOGY DEPT [phone] [place], [place] [address] Social History Tobacco Use Types [...] of hearing aid fit was completed via [id number] (REM) using the DSL-Adult prescriptive fitting method. [...] red case Beige faceplate/blue case Serial Number [id number] Battery Size 312 312 Battery Club PROGRAM/SETTINGS Fitting Algorithm DSL-Adult Same Verification Method REM Same Programs P1= Normal (automatic omnidirectional/directional tiffany) P4= Autocoil (not in memory rotation Same Disabled Features Push button Same Other Comments HEARING AID WARRANTY Original Fit Date 10/25/11 10/25/11 Current Status Under microfiche camera operator repair and L&D coverage until 11/01/13 Under microfiche camera operator repair and L&D coverage until 11/01/13 EARMOLD (if BTE GARCIA) Lab EM (style/material/vent/color) Impression Date Invoice # Tube/KAMILLA (length/dome/rhythmic gymnastics coach size) OTHER/COMMENTS Terrance Blue [place] [address] (fax) documented in this encounter Plan of Treatment Upcoming Encounters Date Type Specialty Care Team Description 06/16/2022 Infusion Hematology and Oncology 06/21/2022 Office Visit Neurology Tyler Rojas MD [facility] Neurology [place], [place] [phone] (Oscar escobedo) 06/29/2022 Appointment Cardiology Violetta Sanford M D [address] [place] [address] (Oscar escobedo) 06/30/2022 Infusion Hematology and Oncology 07/14/2022 Infusion Hematology and Oncology 07/28/2022 Infusion Hematology and Oncology 08/11/2022 Infusion Hematology and Oncology 08/16/2022 Office Visit Audiology Mindy Moody AUD [facility] AUDIOLOGY [place], [place] [address] (Wo rk) 11/04/2022 Office Visit Rheumatology Dante Freedman, PA [facility] RHEUMATOLOGY [place], [place] [address] (Wo rk) documented as of this encounter Visit Diagnoses Diagnosis Sensorineural hearing loss, bilateral - Primary documented in this encounter Care Teams Cable Weaver Relationship Specialty Start Date End Date Candido Jenkins MD PCP - General 05/20/11 04/01/13 [address] [place] [address] documented as of this encounter
--- OUTSIDE RECORDS SUMMARY | 2022-06-16 12:35 | XMS_ITS | Encounter Summary ---
:1955 Author Organization [facility] [place] [address] Care Team Providers Name Role Phone Candido Jenkins MD Primary Care Provider Reason for Visit Reason Comments Wound Check Right BKA dos 06/21/11 Encounter Details Date Type Department Care Team Description 08/23/2011 Follow-[place]edics [place] [facility] [place] FOSTER S/P BKA (below knee amputati on); [facility] Diabetes [place] [address] Social History Tobacco Use Types Packs/Day [...] He will continue to follow with his research geneticist with respect to his blood sugars. He will call with any change in his incision, fever, chills, malaise or concerns about his stump. Dr. Montez supervised this visit documented in this encounter Plan of Treatment Upcoming Encounters Date Type Specialty Care Team Description 06/16/2022 Infusion Hematology and Oncology 06/21/2022 Office Visit Neurology Tyler Rojas MD [facility] Neurology [place], [place] [phone] (Oscar escobedo) 06/29/2022 Appointment Cardiology Violetta Sanford M D [address] [place] [address] (Oscar escobedo) 06/30/2022 Infusion Hematology and Oncology 07/14/2022 Infusion Hematology and Oncology 07/28/2022 Infusion Hematology and Oncology 08/11/2022 Infusion Hematology and Oncology 08/16/2022 Office Visit Audiology Mindy Moody AUD [facility] AUDIOLOGY DEPT [place], [place] [address] (Wo rk) 11/04/2022 Office Visit Rheumatology Dante Freedman PA [facility] RHEUMATOLOGY [place], [place] [address] (Wo rk) documented as of this encounter Visit Diagnoses Diagnosis S/P BKA (below knee amputation) Lower limb amputation, below knee 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
--- OUTSIDE RECORDS SUMMARY | 2022-06-16 12:35 | XMS_ITS | Encounter Summary ---
:1955 Author Organization [facility] [place] [address] Care Team Providers Name Role Phone Candido Jenkins MD Primary Care Provider Reason for Visit Reason Onset Date Comments Medication Refill 12/17/2011 Encounter Details Date Type Department Care Team Description 12/17/2011 Refill Solid Organ Transplant Karen Chino, Trans[facility] [facility] DELINQUENT TAX COLLECTION ASSISTANT (Primary Dx) [facility] [place] [address] TRANSPLANT SURGERY [phone] [place], [place] [address] (Oscar escobedo) Social History Tobacco [...] Hematology and Oncology 06/21/2022 Office Visit Neurology Tyelr Rojas MD [facility] [place]rology [place] [phone] (Wo rk) 06/29/2022 Appointment Cardiology Violetta Sanford M D [address] [place] [address] (Wo rk) 06/30/2022 Infusion Hematology and Oncology 07/14/2022 Infusion Hematology and Oncology 07/28/2022 Infusion Hematology and Oncology 08/11/2022 Infusion Hematology and Oncology 08/16/2022 Office Visit Audiology Mindy Moody AUD [facility] AUDIOLOGY [place], [place] [address] (Wo rk) 11/04/2022 Office Visit Rheumatology Dnate Freedman, DA [facility] RHEUMATOLOGY [place], [place] [address] (Wo rk) documented as of this encounter Visit Diagnoses Diagnosis Transplanted kidney - Primary Kidney replaced by transplant documented in this encounter Care Teams Tourist Camp Attendant Relationship Specialty Start Date End Date Candido Jenkins MD PCP - General 05/20/11 04/01/[address] [place] [address] documented as of this encounter
--- OUTSIDE RECORDS SUMMARY | 2022-06-16 12:35 | XMS_ITS | Encounter Summary ---
:1955 Author Organization [facility] Address [address] [place] [address] Care Team Providers Name Role Phone Candido Jenkins MD Primary Care Provider Reason for Visit Reason Onset Date Comments Medication Refill 08/23/2011 Encounter Details Date Type Department Care Team Description 08/23/2011 Refill Neurology at [facility] Angel Boyd MD Tremor, essential [facility] (Pr imary Dx) [place] [address] NEUROLOGY DEPT. [phone] [place], [place] [address] (Wo rk) Social History Tobacco [...] MD [facility] Dr [place], [place] [address] (Wo rk) 06/29/2022 Appointment Cardiology Violetta Sanford M D [address] [place] [address] (Wo rk) 06/30/2022 Infusion Hematology and Oncology 07/14/2022 Infusion Hematology and Oncology 07/28/2022 Infusion Hematology and Oncology 08/11/2022 Infusion Hematology and Oncology 08/16/2022 Office Visit Audiology Mindy Moody, WENDI [facility] AUDIOLOGY [place], [place] [address] (Wo rk) 11/04/2022 Office Visit Rheumatology Dante Freedman, PA [facility] RHEUMATOLOGY [place], [place] [address] (Wo rk) documented as of this encounter Visit Diagnoses Diagnosis Tremor, essential - Primary Essential and other specified forms of t remor documented in this encounter Care Teams Sewing Machine Adjuster Relationship Specialty Start Date End Date Candido Jenkins MD PCP - General 05/20/11 04/01/13 [address] [place] [address] documented as of this encounter
--- OUTSIDE RECORDS SUMMARY | 2022-06-16 12:35 | XMS_ITS | Encounter Summary ---
:1955 Author Organization [facility] Address [facility] [place] [address] Care Team Providers Name Role Phone Candido Jenkins MD Primary Care Provider Reason for Visit Reason Comments Follow Up Surgery s/p Right BKA Dos 06/21/11 Encounter Details Date Type Department Care Team Description 10/18/2011 Follow-Up [facility]opaedics at [facility] Nikolay Montez MD S/P BKA (below knee amputation) - right lower extremity; [facility] D rive [facility] Amputee, below knee, L; [place] [address] Delayed wound healing [phone] ORTHOPAEDIC SURGERY [place], [place] [address] Social History Tobacco Use Types [...] he has [facility] stove [facility] He states that he needs a new [...] Tyler Rojas MD [facility] Neurology [place], [place] [address] (Oscar escobedo) 06/29/2022 Appointment Cardiology Violetta Sanford M D [address] [place] [address] (Oscar escobedo) 06/30/2022 Infusion Hematology and Oncology 07/14/2022 Infusion Hematology and Oncology 07/28/2022 Infusion Hematology and Oncology 08/11/2022 Infusion Hematology and Oncology 08/16/2022 Office Visit Audiology Mindy Moody AUD [facility] AUDIOLOGY [place], [place] [address] (Wo rk) 11/04/2022 Office Visit Rheumatology Dante Freedman PA [facility] [place] [place] [address] (Wo rk) documented as of this encounter Visit Diagnoses Diagnosis S/P BKA (below knee amputation) - right lower extremity Lower limb amputation, below knee Amputee, below knee, L Lower limb amputation, below knee Delayed wound healing Open wound(s) (multiple) of unspecified site(s), complicated documented in this encounter Care Teams Satellite Manager Relationship Specialty Start Date End Date Candido Jenkins MD PCP - General 05/20/11 04/01/[address] [place] [address] documented as of this encounter
--- OUTSIDE RECORDS SUMMARY | 2022-06-16 12:35 | XMS_ITS | Encounter Summary ---
:1955 Author Organization [facility] [place] [address] Care Team Providers Name Role Phone Candido Jenkins MD Primary Care Provider Reason for Referral Consultation (Routine) - Declined by Patient Specialty Diagnoses / Procedures Referred By Contact Refer red To Contact Sleep Center Diagnoses Diabetes mellitus Margaret Sawyer APRN [facility] [address] [place] [address] [place] [address] Referral ID Status Reason Start Expiration Visits Visits Date Date Requested Authorized [id number] Declined by Evaluate and 11/08/2011 05/06/2012 1 1 Patient Treat Reason for Visit Reason Comments Diabetes Encounter Details Date Type Department Care Team Description 11/08/2011 Office Visit Endocrinology at [facility] C Margaret Sawyer, Diabetes; [facility] Giovana tyler APRN Diabetes mellitus; [place] [address] [facility] MEDICAL [facility] [phone] CENTER ENDOCRINOLOGY DEPT. [place] [address] Social History Tobacco Use Types Packs/Day Years [...] new hearing aids. Eyes: Followed closely by benefits consultant. No recent headaches or chest pain or shortness of breath. No recent GI symptoms. Appetite is good. Sleep pattern: Sister states he snores a lot and loudly. Extremities: Follow[facility] by [facility]. [facility]z [facility] for delayed wound healing of right BKA. Lab results, not available during office visit. Most recent hemoglobin A1c 8.4% on 10/22/2011 done at . PHYSICAL EXAMINATION: Appearance: He is in a [...] Tyler Rojas MD [facility] Neurology [place], [place] [address] (Wo rk) 06/29/2022 Appointment Cardiology Violetta Sanford M D [address] [place] [address] (Wo rk) 06/30/2022 Infusion Hematology and Oncology 07/14/2022 Infusion Hematology and Oncology 07/28/2022 Infusion Hematology and Oncology 08/11/2022 Infusion Hematology and Oncology 08/16/2022 Office Visit Audiology Mindy Moody, WENDI [facility] AUDIOLOGY DEPT [place], [place] [address] (Wo rk) 11/04/2022 Office Visit Rheumatology Dante Freedman, PA [facility] RHEUMATOLOGY [place], [place] [address] (Wo rk) Scheduled Referrals Name [...] athologist Signature Chol, Total 117 <=199 mg/dL [facility] Comment: Recommendations of the NCEP Adult Treatm ent Panel for the following risk cutoff thresholds for the [place] populatio n: Desirable: <200 mg/dL Borderline High: 200-239 mg/dL High: > or = 240 mg/dL HDL 22 (L) >=40 mg/dL [facility] Comment: Reference range: ??Low HDL: ?? < 40 mg/dL ??Normal: ?40-60 mg/dL ??Desirable: > 60 mg/dL SERENA 2001; 285(19):9060-1438 Chol/HDL Ratio 5.3 ratio [facility] Comment: A Cholesterol to HDL ratio below 4:1 is desirable. ??Studies suggest that increased CAD risk occurs at ratios abov e 5 for females and above 6 for men. ? [place] Heart Association ??(htt p://www.americanheart.org) ? [place] Int Med, 1994; 121:641 ? AM J Med, 1998; 105(1A):48S Specimen Anatomical Collection Method Collection Time Receive d Time (Source) Location / / Volume Laterality Blood specimen 11/08/2011 9:21 AM 012 9:21 (specimen) EDT AM EDT Resulting Agency Comment Spec In Lab Donell Hernandez MD CHEMISTRY ORDERABLES Performing Organization Address City/[facility]/[place] [address] [facility] LDL cholesterol, direct (11/08/2011 9:21 AM EDT) athologist Signature LDL Chol 67 <=99 mg/dL [facility] Direct [facility] Comment: The National Cholesterol Education Progr am (NCEP) has set the following guidelines for LDL Cholesterol: Reference range: ?? Optimal: ?<100 mg/dL ?? Near Optimal/Above Optimal: ?? 100-1 29 mg/dL ?? Borderline high: ?130-159 mg/dL ?? High: ? 160-189 mg/dL ?? Very high: ?>hq=279 mg/dL SERENA 2001: 285(19):5686-2136 Specimen Anatomical Collection Method Collection Time Receive d Time (Source) Location / / Volume Laterality Blood specimen 11/08/2011 9:21 AM 012 9:21 (specimen) EDT AM EDT Resulting Agency Comment Spec In Lab Donell Hernandez MD CHEMISTRY ORDERABLES Performing Organization Address City/[facility]/ZIP Code Phon e Number [place] [phone] [facility] (ABNORMAL) Vitamin D 25 hydroxy (11/08/2011 9:21 [...] of 08/31/2011 the Vitamin D Total, 25 [place] xy assays are being analyzed by the [facility] Chemistry Laboratory. ??There is NO CHANGE in units. ??Please contact the chemistry laboratory at [phone] with martha pa. Specimen Anatomical Collection Method Collection Time Receive d Time (Source) Location / / Volume Laterality Blood specimen 11/08/2011 9:21 AM 012 9:21 (specimen) EDT AM EDT Resulting Agency Comment Spec In Lab Donell Hernandez MD CHEMISTRY ORDERABLES Performing Organization Address City/State/ZIP Code Phon e Number [place] [phone] [facility] documented in this encounter Visit Diagnoses Diagnosis Diabetes Type II or unspecified type diabetes fredo litus without mention of complication, not stated as uncontrolled Diabetes mellitus Type II or unspecified type diabetes fredo litus without mention of complication, not stated as uncontrolled Neuropathy Mononeuritis of unspecified site documented in this encounter Care Teams Senior Analyst Market Intelligence Relationship Specialty Start Date End Date Candido Jenkins MD PCP - General 05/20/11 04/01/13 [address] [place] [address] documented as of this encounter
--- OUTSIDE RECORDS SUMMARY | 2022-06-16 12:36 | XMS_ITS | Encounter Summary ---
:1955 Author Organization [facility] [place] [address] Care Team Providers Name Role Phone Suhas Chowdhury MD Primary Care Provider Reason for Visit Reason Comments Wound Check Encounter Details Date Type Department Care Team Description 03/25/2011 [place]edics [place] [facility] [place] CRISTIAN Olsen, below knee; [facility] Giovana tyler Charcot's arthropathy, diabe tic, R; [place] [address] Diabetes mellitus with neuro mendy; [phone] Wound Social History Tobacco Use Types Packs/Day Years Used Date Smoking Tobacco: Former Cigarettes 2 Quit : 01/19/1993 Smokeless Tobacco: Never Alcohol Use Standard Drinks/Week Comments Not Asked [...] Rojas MD [facility] Neurology [place], [place] [address] ([facility]) 06/29/2022 Appointment Cardiology Violetta Sanford M D [address] [place] [address] ([facility]) 06/30/2022 Infusion Hematology and Oncology 07/14/2022 Infusion Hematology and Oncology 07/28/2022 Infusion Hematology and Oncology 08/11/2022 Infusion Hematology and Oncology 08/16/2022 Office Visit Audiology Mindy Moody AUD [facility] AUDIOLOGY DEPT [place], [place] [address] (Wo ) 11/04/2022 Office Visit Rheumatology Dante Freedman PA [facility] RHEUMATOLOGY [place], [place] [address] ([facility]) documented as of this encounter Visit Diagnoses Diagnosis Amputee, below knee Lower limb amputation, below knee Charcot's arthropathy, diabetic, R 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
--- OUTSIDE RECORDS SUMMARY | 2022-06-16 12:36 | XMS_ITS | Encounter Summary ---
:1955 Author Organization [facility] [place] [address] Care Team Providers Name Role Phone Suhas Chowdhury MD Primary Care Provider Reason for Visit Reason Comments Right Foot Pain ulcer Encounter Details Date Type Department Care Team Description 03/02/2011 Follow-Up Orthopaedics at [facility], DR FOSTER Diabetic ulcer of ankle [facility] Giovana tyler (Primary Dx) [place] [address] Social History Tobacco Use Types Packs/Day [...] Rojas MD [facility] Neurology [place], [place] [address] (Wo rk) 06/29/2022 Appointment Cardiology Violetta Sanford M D [facility] [address] [place] [address] (Wo rk) 06/30/2022 Infusion Hematology and Oncology 07/14/2022 Infusion Hematology and Oncology 07/28/2022 Infusion Hematology and Oncology 08/11/2022 Infusion Hematology and Oncology 08/16/2022 Office Visit Audiology Mindy Moody AUD [facility] [place]UDIOLOGY [place], [place] [address] (Wo rk) 11/04/2022 Office Visit Rheumatology Dante Freedman PA [facility] RHEUMATOLOGY [place], [place] [address] (Wo rk) documented as of this encounter Visit Diagnoses Diagnosis Diabetic ulcer of ankle - Primary Type II or unspecified type diabetes fredo litus with other specified manifestations, not stated as uncontrolled documented in this encounter Care Teams Global Creative Chairman Relationship Specialty Start Date End Date Suhas Chowdhury MD PCP - General 06/16/10 05/19/11 [address] [place] [address] documented as of this encounter
--- OUTSIDE RECORDS SUMMARY | 2022-06-16 12:36 | XMS_ITS | Encounter Summary ---
:1955 Author Organization [facility] [place] [address] Care Team Providers Name Role Phone Suhas Chowdhury MD Primary Care Provider Reason for Visit Reason Onset Date Comments Medication Refill 03/02/2011 Encounter Details Date Type Department Care Team Description 03/02/2011 Refill Solid Organ Transplant Alejo Garnett Transplant kidney at [facility] MD Thang (Primary Dx) [facility] [place] [place] [address] TRANSPLANT SURGERY [phone] [place], [place] [address] (Wo rk) Social History Tobacco [...] Rojas MD [facility] Neurology [place], [place] [address] (Wo rk) 06/29/2022 Appointment Cardiology Violetta Sanford M D [address] [place] [address] (Oscar rk) 06/30/2022 Infusion Hematology and Oncology 07/14/2022 Infusion Hematology and Oncology 07/28/2022 Infusion Hematology and Oncology 08/11/2022 Infusion Hematology and Oncology 08/16/2022 Office Visit Audiology Mindy Moody AUD [facility] AUDIOLOGY [place], [place] [address] (Wo rk) 11/04/2022 Office Visit Rheumatology Dante Freedman, DA [facility] RHEUMATOLOGY [place], [place] [address] (Wo rk) documented as of this encounter Visit Diagnoses Diagnosis Transplant kidney - Primary Kidney replaced by transplant documented in this encounter Care Teams Manager Hotel Relationship Specialty Start Date End Date Suhas Chowdhury MD PCP - General 06/16/10 05/19/11 [address] [place] [address] documented as of this encounter
--- OUTSIDE RECORDS SUMMARY | 2022-06-16 12:36 | XMS_ITS | Encounter Summary ---
:1955 Author Organization [facility] [place] [address] Care Team Providers Name Role Phone Suhas Chowdhury MD Primary Care Provider Reason for Visit Reason Comments Wound Check RT foot ulcer Encounter Details Date Type Department Care Team Description 04/16/2011 Follow-Up [facility], DR CRISTIAN Roblero's arthropathy, diabe [facility], R; [facility] D rive Diabetes mellitus with neuro mendy; [place] [address] Type II diabetes mellitus wi th renal manifestations; [phone] Wound Social History Tobacco Use Types Packs/Day [...] still on a meal plan that I surgical instrument technician finally deal with and it works. Objective: [...] Rojas MD [facility] Neurology [place], [place] [address] (Oscar escobedo) 06/29/2022 Appointment Cardiology Violetta Sanford M D [address] [place] [address] (Oscar escobedo) 06/30/2022 Infusion Hematology and Oncology 07/14/2022 Infusion Hematology and Oncology 07/28/2022 Infusion Hematology and Oncology 08/11/2022 Infusion Hematology and Oncology 08/16/2022 Office Visit Audiology Mindy Moody AUD [facility] AUDIOLOGY [place], [place] [address] (Oscar escobedo) 11/04/2022 Office Visit Rheumatology Dante Freedman PA [facility] RHEUMATOLOGY [place], [place] [address] (Wo rk) documented [...] site documented in this encounter Care Teams Local Government Legislator Relationship Specialty Start Date End Date Suhas Chowdhury MD PCP - General 06/16/10 05/19/11 [address] [place] [address] documented as of this encounter
--- OUTSIDE RECORDS SUMMARY | 2022-06-16 12:36 | XMS_ITS | Encounter Summary ---
:1955 Author Organization [facility] [place] [address] Care Team Providers Name Role Phone Suhas Chowdhury MD Primary Care Provider Encounter Details Date Type Department Care Team Description 03/26/2011 Abstract Neurology at [facility] Angel Boyd MD [facility] [place] [address] NEUROLOGY DEPT. [phone] [place], [place] [address] (Wo rk) Social History Tobacco [...] [facility] Dr Sofi [place], [place] [phone] (Wo rk) 06/29/2022 Appointment Cardiology Violetta Sanford M D [address] [place] [address] (Wo rk) 06/30/2022 Infusion Hematology and Oncology 07/14/2022 Infusion Hematology and Oncology 07/28/2022 Infusion Hematology and Oncology 08/11/2022 Infusion Hematology and Oncology 08/16/2022 Office Visit Audiology Mindy Moody AUD [facility] AUDIOLOGY DEPT [place], [place] [address] (Wo rk) 11/04/2022 Office Visit Rheumatology Dante Freedman PA [facility] RHEUMATOLOGY [place], [place] [address] (Wo rk) documented as of this encounter Visit Diagnoses Not on filedocumented in this encounter Care Teams Oil Processing Technician Relationship Specialty Start Date End Date Suhas Chowdhury MD PCP - General 06/16/10 05/19/11 [address] [place] [address] documented as of this encounter
--- OUTSIDE RECORDS SUMMARY | 2022-06-16 12:36 | XMS_ITS | Encounter Summary ---
:1955 Author Organization [facility] [place] [address] Care Team Providers Name Role Phone Suhas Chowdhury MD Primary Care Provider Reason for Visit Reason Comments Right Foot Pain Encounter Details Date Type Department Care Team Description 05/04/2011 Follow-Up Orthopaedics at [facility], DR CRISTIAN Roblero's arthropathy, [facility] Brynn [place]arden[place] ([place] [address] Dx) [phone] Social History Tobacco Use Types Packs/Day Years [...] Bleeding controlled with silver nitrate. Wound measures: [id number] And small toe measure 9mm diameter Dressed [...] Rojas MD [facility] Neurology [place], [place] [phone] (Oscar escobedo) 06/29/2022 Appointment Cardiology Violetta Sanford M D [facility] [address] [place] [address] (Oscar escobedo) 06/30/2022 Infusion Hematology and Oncology 07/14/2022 Infusion Hematology and Oncology 07/28/2022 Infusion Hematology and Oncology 08/11/2022 Infusion Hematology and Oncology 08/16/2022 Office Visit Audiology Mindy Moody AUD [facility] AUDIOLOGY [place], [place] [address] (Oscar escobedo) 11/04/2022 Office Visit Rheumatology Dante Freedman PA [facility] RHEUMATOLOGY [place], [place] [address] (Wo rk) documented as of this encounter Visit Diagnoses Diagnosis Charcot's arthropathy, diabetic, R - Steff krysatl 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
--- OUTSIDE RECORDS SUMMARY | 2022-06-16 12:36 | XMS_ITS | Encounter Summary ---
:1955 Author Organization [facility] [place] [address] Care Team Providers Name Role Phone Suhas Chowdhury MD Primary Care Provider Encounter Details Date Type Department Care Team Description 04/26/2011 Follow-Up Orthopaedics at [facility], DR CRISTIAN Brar arthropathy, jhony simpson (Primary Dx); [facility] Giovana Brar arthropphillip, diabhansel tic, R; [place] [address] Diabetes mellitus with neuro mendy; [phone] Type II diabete s mellitus with renal [...] Neurology Tyler Rojas MD [facility] Neurology [place], [place] [phone] (Oscar escobedo) 06/29/2022 Appointment Cardiology Violetta Sanford M D [address] [place] [address] ([facility]) 06/30/2022 Infusion Hematology and Oncology 07/14/2022 Infusion Hematology and Oncology 07/28/2022 Infusion Hematology and Oncology 08/11/2022 Infusion Hematology and Oncology 08/16/2022 Office Visit Audiology Mindy Moody AUD [facility] AUDIOLOGY [place], [place] [address] (Oscar escobedo) 11/04/2022 Office Visit Rheumatology Dante Freedman PA [facility] RHEUMATOLOGY [place], [place] [address] (Wo rk) documented as of this encounter Results XR [...] documented in this encounter Care Teams Manager [place] Relationship Specialty Start Date End Date Suhas Chowdhury MD PCP - General 06/16/10 05/19/[address] [place] [address] documented as of this encounter
--- OUTSIDE RECORDS SUMMARY | 2022-06-16 12:36 | XMS_ITS | Encounter Summary ---
:1955 Author Organization [facility] [place] [address] Care Team Providers Name Role Phone Suhas Chowdhury MD Primary Care Provider Reason for Visit Reason Comments Kidney Transplant Follow-up Encounter Details Date Type Department Care Team Description 03/22/2011 Follow-Up Solid Organ Karen Chino Transplant juanis calderon; Transplant at [facility] E, SURVEY WORKER Poisoning by antineoplastic and immunosu ppressive drugs [facility] [address] [place] TRANSPLANT [address] SURGERY [phone] [place], [place] [address] Social History Tobacco Use Types [...] this encounter Progress Notes Matti Karen Zurita, SURVEY WORKER - 03/22/2011 11:27 AM EDT Subjective: Patient [...] ??? Appearance UA Clear Clear ??? Spec [place] UA 1.008 1.002 - 1.030 ??? Color [...] Patient is followed by endocrinology here at [facility]. He last saw Margaret Sawyer APRN, CDE [...] Rojas MD [facility] Neurology [place], [place] [phone] (Wo rk) 06/29/2022 Appointment Cardiology Violetta Sanford M D [address] [place] [address] (Wo rk) 06/30/2022 Infusion Hematology and Oncology 07/14/2022 Infusion Hematology and Oncology 07/28/2022 Infusion Hematology and Oncology 08/11/2022 Infusion Hematology and Oncology 08/16/2022 Office Visit Audiology Mindy Moody AUD [facility] AUDIOLOGY DEPT [place], [place] [address] (Wo rk) 11/04/2022 Office Visit Rheumatology Dante Freedman PA [facility] RHEUMATOLOGY [place], [place] [address] (Wo rk) Scheduled Orders Name Type Priority Associated Diagnoses Order S chedule BKV Quant Urine Microbiology STAT Transplant kidne y Expected: Poisoning by antineoplastic 03/18/2011 and immunosuppressive drugs (Approximate), Expires: 2011 BKV Quant Blood Lab STAT Transplant kidne y Expected: Poisoning by antineoplastic 03/18/2011 and immunosuppressive drugs (Approximate), Expires: 2011 documented as of this encounter Procedures Procedure Name Priority Date/Time Associated Diagnosis Comme nts BK QUANT URINE STAT 03/22/2011 9:23 Results fo r this RESULT AM EDT procedure are i n the results section. CALCIUM CREATININE Routine 03/22/2011 9:23 Transplant ki dney Results for this RATIO, RANDOM URINE [...] Component Value Ref Test Analysis Performed At [facility] Range Method Time Signature BKV Urine Not Detected CERNER Result [facility] BKV Urine BK Virus Urine Result Interpretation [facility] Interp [facility] Result: BK Virus Not Detected log concentration: Not detected Assay Range: urine: 3.1-9.2 log copies/mL (1.2x10^3 - 1.5x10 ^9 copies/mL ) Results are reported as log copies/mL. ??Changes of less than 1.0 log between serial samples may not be clinically significant. Methods: Quantitative Real time polymerase chain react ion (PCR) of viral DNA isolated from urine was performed using the Milk BK Virus MGB Alert primers(2) and probes (1) an d analyzed on the img[employer] Smartcycler. In addition, the PCR product sequence is confirmed us ing physical properties (melting curve analysis). This test was developed and its performance determined by the [facility] Molecular Pathology Laboratory. It has not [...] Performing Organization Address City/[facility]/[place] [address] CERNER MILLENNIUM Phosphorus, urine, random (03/22/2011 9:23 AM EDT) athologist Signature U Phosphorus 38.0 mg/dL CERNER MILLENNIUM Specimen Anatomical Collection Method Collection Time Receive d Time (Source) Location / / Volume Laterality Urine specimen 03/22/2011 9:23 AM 011 9:32 (specimen) EDT AM EDT Alejo Garnett MD URINE ORDERABLES Performing Organization Address City/[facility]/[place] [address] CERNER MILLENNIUM Calcium Creatinine Ratio, random urine (03/22/2011 9:23 AM EDT) athologist Signature U Calcium 1.4 mg/dL CERNER MILLENNIUM U Creatinine 50 mg/dL CERNER MILLENNIUM Ca/Cre Ratio 0.03 ratio CERNER MILLENNIUM Specimen Anatomical Collection Method Collection Time Receive d Time (Source) Location / / Volume Laterality Urine specimen 03/22/2011 9:23 AM 011 9:32 (specimen) EDT AM EDT Alejo Garnett MD URINE ORDERABLES Performing Organization Address City/[facility]/ZIP Code Phon e Number [address] CERNER MILLENNIUM (ABNORMAL) Urinalysis with microscopic (03/22/2011 9:23 AM EDT) [facility] gist Method Time Signature Glucose UA Trace [...] Appearance UA Clear Clear CERNER MILLENNIUM Spec [place] UA 1.008 1.002 - CERNER 1.030 MILLENNIUM Color UA Yellow Yellow [facility] M[facility] RBC UA <1 0 - 3 /HPF CERNER MILLENNIUM WBC UA <1 0 - 3 /HPF [facility] MILLENNIUM Specimen Anatomical Collection Method Collection Time Receive d Time (Source) Location / / Volume Laterality Urine specimen 03/22/2011 9:23 AM 011 9:32 (specimen) EDT AM EDT Alejo Garnett MD URINE ORDERABLES Performing Organization Address City/State/[place] [address] [facility]-BK QUANT BLOOD RESULT (03/22/2011 9:17 AM EDT) Component Value Ref Test Analysis Performed At [facility] Range Method Time Signature BKV Blood Not Detected CERNER Result MILLENNIUM BKV Blood BK Virus Blood Result Interpretation [facility] Interp MILLENNIUM Result: BK Virus [...] isolated from plasma was performed using the Milk BK Viru s MGB Alert primers(2) and probes (1) an d analyzed on the [employer] Smartcycler. In addition, the ??PCR product sequence i s confirmed using physical properties (melting curve analysis). This test was developed and its performance determined by the [facility] Molecular Pathology Laboratory. It has not [...] Organization Address City/State/ZIP Code Phon e Number [place] [phone] CERNER MILLENNIUM REFLEX LAB-A-DIFF [...] Performing Organization Address City/[facility]/[place] [address] CERNER MILLENNIUM Tacrolimus level (03/22/2011 9:17 AM EDT) athologist Signature Tacrolimus Lvl 8.3 ng/mL CERNER MILLENNIUM Comment: Trough therapeutic: 5-15 ng/mL Specimen Anatomical Collection Method Collection Time Receive d Time (Source) Location / / Volume Laterality Blood specimen 03/22/2011 9:17 AM 011 (specimen) EDT 11:47 AM EDT Alejo Garnett MD CHEMISTRY ORDERABLES Performing Organization Address City/[facility]/[place] [address] CERNER MILLENNIUM Reticulocyte Count [...] Performing Organization Address City/[facility]/[place] [address] CERNER MILLENNIUM (ABNORMAL) CBC [...] Performing Organization Address City/[facility] Code Phon e Number [address] CERNER MILLENNIUM Uric acid (03/22/2011 9:17 AM EDT) athologist Signature Uric Acid 7.1 3.5 - 8.5 CERNER mg/dL [facility] Specimen Anatomical Collection Method Collection Time Receive d Time (Source) Location / / Volume Laterality Blood specimen 03/22/2011 9:17 AM 011 9:31 (specimen) EDT AM EDT Alejo Garnett MD CHEMISTRY ORDERABLES Performing Organization Address City/[facility] [place] [address] CERNER MILLENNIUM Phosphorus (03/22/2011 9:17 AM EDT) athologist Signature Phosphorus 3.3 2.5 - 4.5 CERNER mg/dL MILLENNIUM Specimen Anatomical Collection Method Collection Time Receive d Time (Source) Location / / Volume Laterality Blood specimen 03/22/2011 9:17 AM 011 9:31 (specimen) EDT AM EDT Alejo Garnett MD CHEMISTRY ORDERABLES Performing Organization Address City/[facility]/[place] [address] CERNER MILLENNIUM Magnesium (03/22/2011 9:17 AM EDT) athologist Signature Magnesium 0.77 0.69 - 1.07 CERNER mmol/L MILLENNIUM Specimen Anatomical Collection Method Collection Time Receive d Time (Source) Location / / Volume Laterality Blood specimen 03/22/2011 9:17 AM 011 9:31 (specimen) EDT AM EDT Alejo Garnett MD CHEMISTRY ORDERABLES Performing Organization Address City/[facility]/[place] [address] CERNER MILLENNIUM (ABNORMAL) Comprehensive metabolic panel (non-fasting) (03/22/2011 9:17 AM EDT) athologist Signature Glucose Lvl 226 (H) 60 [...] Organization Address City/State/ZIP Code Phon e Number [place] [phone] CERDINH BALLARDIUM (ABNORMAL) Lipid panel (fasting) (03/22/2011 9:17 AM EDT) P athologist Signature Chol, Total 97 <=199 mg/dL CERNER MILLENNIUM Comment: Recommendations of the NCEP Adult Treatm ent Panel for the following risk cutoff thresholds for the [place] populatio n: Desirable: <200 mg/dL Borderline High: 200-239 mg/dL High: > or = 240 mg/dL Triglycerides 178 (H) <=149 mg/dL CERNER MILLENN IUM Comment: Reference Range: Normal triglycerides: ??<150 mg/dL Borderline high: ??150-199 mg/dL High: ??200-499 mg/dL Very high: ??>zn=564 mg/dL SERENA 2001; 285(19):1024-3894 HDL 23 (L) >=40 mg/dL CERNER MILLENNIUM Comment: Reference range: ??Low HDL: ?? < 40 mg/dL ??Normal: ?40-60 mg/dL ??Desirable: > 60 mg/dL SERENA 2001; 285(19):4412-3143 LDL Cholesterol 38 <=99 mg/dL CERDINH OMKAR NIUM Comment: Reference range: ?? Optimal: ?<100 mg/dL ?? Near Optimal/Above Optimal: ?? 100-1 29 mg/dL ?? Borderline high: ?130-159 mg/dL ?? High: ? 160-189 mg/dL ?? Very high: ?>dd=573 mg/dL SERENA 2001: 285(19):5623-3060 Chol/HDL Ratio 4.2 ratio CERNER NELLIEI UM Comment: A Cholesterol to HDL ratio below 4:1 is desirable. ??Studies suggest that increased CAD risk occurs at ratios abov e 5 for females and above 6 for men. ? [place] Heart Association ??(htt p://www.americanheart.org) ? [place] Int Med, 1994; 121:641 ? AM J Med, 1998; 105(1A):48S Specimen Anatomical Collection Method Collection Time Receive d Time (Source) Location / / Volume Laterality Blood specimen 03/22/2011 9:17 AM 011 9:31 (specimen) EDT AM EDT Alejo Garnett MD CHEMISTRY ORDERABLES Performing Organization Address City/[facility]/ZIP Code Phon e Number [address] [facility]DINH [facility]ISS[facility] (ABNORMAL) Reflex Lab-PTH (03/22/2011 9:17 AM EDT) P athologist Signature PTH 88 (H) 15 - 65 CERNER pg/mL MILLENNIUM Specimen Anatomical Collection Method Collection Time Receive d Time (Source) Location / / Volume Laterality Blood specimen 03/22/2011 9:17 AM 011 9:31 (specimen) EDT AM EDT Alejo Garnett MD CHEMISTRY ORDERABLES Performing Organization Address City/[facility]/[place] [address] CERNER MILLENNIUM (ABNORMAL) Vitamin D2 and D3 25 Hydroxy (03/22/2011 9:17 AM EDT) P athologist Signature 25-Hydroxy D2 <4.0 ng/mL CERNER MILLENNIUM Comment: Test Performed by: [place] [address] Exterior Door Installer: Purnima Ayoub, Ph. D. 25-Hydroxy D3 23 ng/mL HOLLI COLESHELDONSivakumarJanneth Ramirez Comment: Test Performed by: [facility] [place] [address] Exterior Door Installer: Purnima Ayoub, Ph. D. 25-OH Vit D Total 23 (L) ng/mL CERNER MILLE NNIUM Comment: Interpretation: 10-24 (mild to moderate deficiency) -- REFERENCE VALUE -- 25-HYDROXY D TOTAL (D2+D3) Optimum levels in the normal population are 25-80 Test Performed by: [facility] [address], [place] [address] Exterior Door Installer: Purnima Ayoub, Ph. D. Specimen Anatomical Collection Method Collection Time Receive d Time (Source) Location / / Volume Laterality Blood specimen 03/22/2011 9:17 AM 011 (specimen) EDT 10:49 AM EDT Alejo Garnett MD CHEMISTRY ORDERABLES Performing Organization Address City/[facility] [place] [address] CERNER MILLENNIUM Vitamin D 1,25 Dihydroxy (03/22/2011 9:17 AM EDT) P athologist Signature Vit D 1,25 32 18 - 64 CERNER pg/mL MILLENNIUM Comment: Test Performed by: [facility] Med [facility] Pathology [address] [place] [address] Exterior Door Installer: Narayan richards III, M.D. Specimen Anatomical Collection Method Collection Time Receive d Time (Source) Location / / Volume Laterality Blood specimen 03/22/2011 9:17 AM 011 (specimen) EDT 10:48 AM EDT Alejo Garnett MD CHEMISTRY ORDERABLES Performing Organization Address City/[facility] [place] [address] CERNER MILLENNIUM REFLEX LAB-U24 HRS AND VOLUME (03/22/2011 7:00 AM EDT) P athologist Signature Hours 24 hour(s) CERNER Collected MILLENNIUM Urine TV (ml) 3100 mL CERNER MILLENNIUM Specimen Anatomical Collection Method Collection Time Receive d Time (Source) Location / / Volume Laterality Urine specimen 03/22/2011 7:00 AM 011 (specimen) EDT 10:24 AM EDT Karen Chino SURVEY WORKER CHEMISTRY ORDERABLES Performing Organization Address City/[facility]/ZIP Code Phon e Number [address] CERNER MILLENNIUM URIC ACID, URINE, 24 HOUR (03/22/2011 7:00 AM EDT) athologist Signature U24 Uric Conc 17.8 mg/dL CERNER MILLENNIUM U24 Uric Calc 0.55 0.25 - CERNER 0.80 MILLENNIUM gm/24hr Specimen Anatomical Collection Method Collection Time Receive d Time (Source) Location / / Volume Laterality Urine specimen 03/22/2011 7:00 AM 011 (specimen) EDT 10:24 AM EDT Karen Zurita Matti [place] URINE ORDERABLES Performing Organization Address City/[facility] [place] [address] CERNER MILLENNIUM PHOSPHORUS, URINE, 24 HOUR (03/22/2011 7:00 AM EDT) athologist Signature U24 Phos Conc 29.5 mg/dL CERNER MILLENNIUM U24 Phos Calc 0.9 0.4 - 1.3 CERNER gm/24hr MILLENNIUM Specimen Anatomical Collection Method Collection Time Receive d Time (Source) Location / / Volume Laterality Urine specimen 03/22/2011 7:00 AM 011 (specimen) EDT 10:24 AM EDT Karen Zurita Matti [place] URINE ORDERABLES Performing Organization Address City/[facility] [place] [address] CERNER MILLENNIUM (ABNORMAL) CALCIUM, [...] Chino APRN URINE ORDERABLES Performing Organization Address City/[facility]/[place] [address] CERNER MILLENNIUM (ABNORMAL) PROTEIN, [...] Chino APRN URINE ORDERABLES Performing Organization Address [facility] [place] [address] CERNER MILLENNIUM (ABNORMAL) CREATININE [...] Chino APRN URINE ORDERABLES Performing Organization Address City/[facility]/ZIP [facility] e Number [address] CERNER MILLENNIUM documented in this encounter Visit Diagnoses Diagnosis Transplant kidney Kidney replaced by transplant Poisoning by antineoplastic and immunosu ppressive drugs(963.1) Poisoning by antineoplastic and immunosu ppressive drugs documented in this encounter Care Teams Research Associate Molecular Biology Relationship Specialty Start Date End Date Suhas Chowdhury MD PCP - General 06/16/10 05/19/11 [address] [place] [address] documented as of this encounter
--- OUTSIDE RECORDS SUMMARY | 2022-06-16 12:36 | XMS_ITS | Encounter Summary ---
:1955 Author Organization [facility] [place] [address] Care Team Providers Name Role Phone Suhas Chowdhury MD Primary Care Provider Reason for Visit Reason Comments Right Foot Pain Encounter Details Date Type Department Care Team Description 03/11/2011 Follow-Up Orthopaedics at [facility], DR CRISTIAN Olsen, below knee; [facility] Giovana tyler Charcot's arthropathy, diabe tic, R; [place] [address] Diabetes mellitus with neuro mendy; [phone] Wound; Type II diabete s mellitus with [...] Visit Neurology Tyler Rojas MD [facility] Neurology [place], [place] [phone] (Oscar escobedo) 06/29/2022 Appointment Cardiology Violetta Sanford M D [address] [place] [address] (Oscar escobedo) 06/30/2022 Infusion Hematology and Oncology 07/14/2022 Infusion Hematology and Oncology 07/28/2022 Infusion Hematology and Oncology 08/11/2022 Infusion Hematology and Oncology 08/16/2022 Office Visit Audiology Mindy Moody AUD [facility] AUDIOLOGY [place], [place] [address] (Wo rk) 11/04/2022 Office Visit Rheumatology Dante Freedman, PA [facility] RHEUMATOLOGY [place], [place] [address] (Wo rk) documented as of [...] uncontrolled documented in this encounter Care Teams Insurance Claims Specialist Relationship Specialty Start Date End Date Suhas Chowdhury MD PCP - General 06/16/10 05/19/11 [address] [place] [address] documented as of this encounter
--- OUTSIDE RECORDS SUMMARY | 2022-06-16 12:36 | XMS_ITS | Encounter Summary ---
:1955 Author Organization [facility] Address [facility] [place] [address] Care Team Providers Name Role Phone Candido Jenkins MD Primary Care Provider Encounter Details Date Type Department Care Team Description 06/04/2011 Hospital Encounter Laboratory Narayan Roy Open wound of right ankle; [facility] MD Abi Diabetes mellitus with neuropathy; [facility] MEDICAL Pre-op testing [facility] [id number] ORTHOPAEDIC [phone] SURGERY [place] [id number] Social History Tobacco Use Types Packs/Day Years [...] Tyler Rojas MD [facility] Neurology [place], [place] [phone] (Wo rk) 06/29/2022 Appointment Cardiology Violetta Sanford M D [address] [place] [address] (Wo rk) 06/30/2022 Infusion Hematology and Oncology 07/14/2022 Infusion Hematology and Oncology 07/28/2022 Infusion Hematology and Oncology 08/11/2022 Infusion Hematology and Oncology 08/16/2022 Office Visit Audiology Mindy Moody AUD [facility] AUDIOLOGY DEPT [place], [place] [address] (Wo rk) 11/04/2022 Office Visit Rheumatology Dante Freedman PA [facility] RHEUMATOLOGY [place], [place] [address] (Wo rk) documented as of [...] of right (FUTURE SURGERY, EST ankle [facility] SAME DAY Diabetes [...] Performing Organization Address City/State/[place] [address] CERNER DOUGLASENNIUM (ABNORMAL) Hemoglobin A1c (06/04/2011 1:16 PM EST) Analysis Performed At Patho logis Time Signature Hemoglobin A1C 7.5 (H) 4.3 - 6.1 CERNER % MILLENNIUM Est Avg Gluc 169 mg/dL [facility] Comment: eAG equivalents for HbA1c [...] into estimated average glucose values. ??Diabetes Care 2008:31(8):9490-8421. Specimen Anatomical Collection Method Collection Time Receive d Time (Source) Location / / Volume Laterality Blood specimen 06/04/2011 1:16 PM 011 1:24 (specimen) EST PM EST Narayan Roy Jr., MD CHEMISTRY ORDERABLES Performing Organization Address City/[facility]/[place] [address] [facility] ANTIBODY S[facility] (06/04/2011 1:16 PM EST) Analysis Performed At Patho logist Time Signature Ab Screen Negative [facility] Ex[facility] at [phone] [facility] 2359 on: [facility] Specimen Anatomical Collection Method Collection Time Receive d Time (Source) Location / / Volume Laterality Blood specimen 06/04/2011 1:16 PM 011 1:24 (specimen) EST PM EST Narayan Roy Jr., MD BLOOD BANK ORDERABLES Performing Organization Address City/[facility]/ZIP Code Phon e Number [address] [facility] ABO/RH TYPING (06/04/2011 1:16 PM EST) athologist Signature ABORh Type O Pos [facility] Specimen Anatomical Collection Method Collection Time Receive d Time (Source) Location / / Volume Laterality Blood specimen 06/04/2011 1:16 PM 011 1:24 (specimen) EST PM EST Narayan Roy Jr., MD BLOOD BANK ORDERABLES Performing Organization Address City/[facility] Phon e Number [address] [facility] (ABNORMAL) Basic Metabolic Panel (non-fasting) (06/04/2011 1:16 PM EST) athologist Signature Glucose Lvl 181 60 - 199 CERNER mg/dL [facility] Comment: Diabetes: >=200 mg/dL plus symp toms BUN 29 (H) 10 - 20 mg/dL [facility] MILLENNIU M Creatinine 1.67 (H) 0.80 - [...] - 15 mmol/L CERNER MILLENNIU M Calcium 10.0 8.5 - 10.5 mg/dL CERNER OMKAR NIUM Estimated GFR 42 (L) >=60 CERNER MILLENNIU M Comment: The [...] Organization Address City/State/[place] [address] CERNER MILLENNIUM (ABNORMAL) CBC (with Diff) (06/04/2011 1:16 PM EST) P athologist Signature WBC 7.5 4.0 - 10.0 [...] Organization Address City/State/[place] [address] CERNER MILLENNIUM documented in this encounter Visit Diagnoses Diagnosis Open wound of right ankle Open wound of knee, leg (except thigh), and ankle, without mention of complication Diabetes mellitus with neuropathy 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
--- OUTSIDE RECORDS SUMMARY | 2022-06-16 12:36 | XMS_ITS | Encounter Summary ---
:1955 Author Organization [facility] [place] [address] Care Team Providers Name Role Phone Suhas Chowdhury MD Primary Care Provider Encounter Details Date Type Department Care Team Description 04/15/2011 Abstract Solid Organ Transplant at Karen Jones APRN [facility] Giovana [place] [address] [place] [address] [phone] (Wo rk) Social History Tobacco Use Types [...] Rojas MD [facility] Neurology [place], [place] [phone] (Wo rk) 06/29/2022 Appointment Cardiology Voiletta Sanford M D [address] [place] [address] (Wo rk) 06/30/2022 Infusion Hematology and Oncology 07/14/2022 Infusion Hematology and Oncology 07/28/2022 Infusion Hematology and Oncology 08/11/2022 Infusion Hematology and Oncology 08/16/2022 Office Visit Audiology Mindy Moody AUD [facility] AUDIOLOGY [place], [place] [address] (Wo rk) 11/04/2022 Office Visit Rheumatology Dante Freedman PA [facility] RHEUMATOLOGY [place], [place] [address] (Wo rk) documented as of this encounter Visit Diagnoses Not on filedocumented in this encounter Care Teams Curriculum Development Coordinator Relationship Specialty Start Date End Date Suhas Chowdhury MD PCP - General 06/16/10 05/19/11 [address] [place] [address] documented as of this encounter
--- OUTSIDE RECORDS SUMMARY | 2022-06-16 12:36 | XMS_ITS | Encounter Summary ---
:1955 Author Organization [facility] [place] [address] Care Team Providers Name Role Phone Candido Jenkins MD Primary Care Provider Encounter Details Date Type Department Care Team Description 06/04/2011 Follow-Up Orthopaedics at [facility], DR FOSTER Pre-op testing (Primary [facility] Giovana tyler Dx) [place] [address] Social History Tobacco Use Types Packs/Day Years [...] Rojas MD [facility] Neurology [place], [place] [phone] (Wo rk) 06/29/2022 Appointment Cardiology Violetta Sanford M D [address] [place] [address] (Oscar rk) 06/30/2022 Infusion Hematology and Oncology 07/14/2022 Infusion Hematology and Oncology 07/28/2022 Infusion Hematology and Oncology 08/11/2022 Infusion Hematology and Oncology 08/16/2022 Office Visit Audiology Mindy Moody, [facility] AUDIOLOGY DEPT [place] [address] (Wo rk) 11/04/2022 Office Visit Rheumatology Dante Freedman PA [facility] RHEUMATOLOGY [place], [place] [address] (Wo rk) documented as of this encounter Results (ABNORMAL) Hemoglobin A1c (06/04/2011 1:16 PM EST) Analysis Performed At [facility] Time Signature Hemoglobin A1C 7.5 (H) 4.3 - 6.1 CERNER % MILLENNIUM Est Avg Gluc 169 mg/dL [facility] Comment: eAG equivalents for HbA1c [...] into estimated average glucose values. ??Diabetes Care 2008:31(8):1043-8452. Specimen Anatomical Collection Method Collection Time Receive d Time (Source) Location / / Volume Laterality Blood specimen 06/04/2011 1:16 PM 011 1:24 (specimen) EST PM EST Narayan Roy Jr., MD CHEMISTRY ORDERABLES Performing Organization Address City/State/[place] [address] [facility] documented in this encounter Visit Diagnoses Diagnosis Pre-op testing - Primary Preoperative examination, unspecified documented in this encounter Care Teams Vault Service Mechanic Relationship Specialty Start Date End Date Candido Jenkins MD PCP - General 05/20/11 04/01/13 [address] [place] [address] documented as of this encounter
--- OUTSIDE RECORDS SUMMARY | 2022-06-16 12:36 | XMS_ITS | Encounter Summary ---
:1955 Author Organization [facility] [address] Care Team Providers Name Role Phone Suhas Chowdhury MD Primary Care Provider Reason for Visit Reason Comments Wound Check left medial malleolar ulcera tion. 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 [...] [facility] Neurology [place], [place] [address] (Wo rk) 06/29/2022 Appointment Cardiology Violetta Sanford M D [address] [place] [address] (Wo rk) 06/30/2022 Infusion Hematology and Oncology 07/14/2022 Infusion Hematology and Oncology 07/28/2022 Infusion Hematology and Oncology 08/11/2022 Infusion Hematology and Oncology 08/16/2022 Office Visit Audiology Mindy Moody AUD [facility] AUDIOLOGY DEPT [place], [place] [address] (Wo rk) 11/04/2022 Office Visit Rheumatology Dante Freedman PA [facility] RHEUMATOLOGY [place], [place] [address] (Oscar escobedo) documented as of [...] uncontrolled documented in this encounter Care Teams Color Checker Roving Or Yarn Relationship Specialty Start Date End Date Suhas Chowdhury MD PCP - General 06/16/10 05/19/[address] [place] [address] documented as of this encounter
--- OUTSIDE RECORDS SUMMARY | 2022-06-16 12:36 | XMS_ITS | Encounter Summary ---
:1955 Author Organization [facility] [place] [address] Care Team Providers Name Role Phone Candido Jenkins MD Primary Care Provider Reason for Visit Reason Comments Wound Check Right foot Encounter Details Date Type Department Care Team Description 05/20/2011 Follow-Up Orthopaedics at [facility], DR CRISTIAN Roblero's arthropathy, diabe [facility], R; [facility] D kennedie Diabetes mellitus with neuro mendy; [place] [address] Open wound of right ankle [phone] Social History Tobacco Use Types Packs/Day Years [...] Rojas MD [facility] Neurology [place], [place] [address] (Wo rk) 06/29/2022 Appointment Cardiology Violetta Sanford M D [address] [place] [address] (Wo rk) 06/30/2022 Infusion Hematology and Oncology 07/14/2022 Infusion Hematology and Oncology 07/28/2022 Infusion Hematology and Oncology 08/11/2022 Infusion Hematology and Oncology 08/16/2022 Office Visit Audiology Mindy Moody AUD [facility] AUDIOLOGY DEPT [place], [place] [address] (Wo rk) 11/04/2022 Office Visit Rheumatology Dante Freedman PA [facility] RHEUMATOLOGY [place], [place] [address] (Wo rk) documented as of this encounter Visit Diagnoses Diagnosis Charcot's arthropathy, diabetic, R 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
--- OUTSIDE RECORDS SUMMARY | 2022-06-16 12:36 | XMS_ITS | Encounter Summary ---
:1955 Author Organization [facility] [place] [address] Care Team Providers Name Role Phone Suhas Chowdhury MD Primary Care Provider Reason for Visit Reason Comments Wound Check right ankle Encounter Details Date Type Department Care Team Description 03/18/2011 Follow-Up Orthopaedics at [facility], DR CRISTIAN Olsen, below knee; [facility] Giovana tyler Charcot's arthropathy, diabe tic, R; [place] [address] Diabetes mellitus with neuro mendy; [phone] Wound Social History Tobacco Use Types Packs/Day [...] Rojas MD [facility] Neurology [place], [place] [address] (Oscar escobedo) 06/29/2022 Appointment Cardiology Violetta Sanford M D [address] [place] [address] ([facility]) 06/30/2022 Infusion Hematology and Oncology 07/14/2022 Infusion Hematology and Oncology 07/28/2022 Infusion Hematology and Oncology 08/11/2022 Infusion Hematology and Oncology 08/16/2022 Office Visit Audiology Mindy Moody AUD [facility] [place], [place] [address] (Oscar escobedo) 11/04/2022 Office Visit Rheumatology Dante Freedman PA [facility] DR [place], [place] [address] (Wo rk) documented as of this encounter Visit Diagnoses Diagnosis Amputee, below knee Lower limb amputation, below knee Charcot's arthropathy, diabetic, R 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
--- OUTSIDE RECORDS SUMMARY | 2022-06-16 12:36 | XMS_ITS | Encounter Summary ---
:1955 Author Organization [facility] [place] [address] Care Team Providers Name Role Phone Candido Jenkins MD Primary Care Provider Encounter Details Date Type Department Care Team Description 06/21/2011 Surgery Main Operating Room Narayan Gamino Jr., @AMPUTATION, BELOW-KNEE Sylvia Trevino MD (WRVU 15.37) [facility] DR Sloan [place] [address] [place] [phone] (Wo rk) Social History Tobacco Use Types [...] this encounter Discharge Instructions Patient InstructionsCarrie Hunt, LINE COOK - 06/22/2011 2:28 PM EST DISCHARGE INSTRUCTIONS: [...] a bowel movement. You can try an ayfw-byw-triminp medication, miralax if needed. 2. When you [...] or stump. 4. Call your orthopaedic surgeon (#[phone]) with any fever, chills, sweats, redness or discharge from the wounds. 5. Daily dressing changes should be done with dry sterile gauze, and then apply an IFTIHKAR wrap. You should keep your incision/stump covered [...] bring pt to rehab. Report called to vocational rehabilitation counselor. Patricia Saavedra - 06/24/2011 12:38 PM EST Office of Care Management/[employer] Patient Name: Leroy Dailey : 1955 Patient has been offered a swing bed at [facility]. [facility] arranged for a 1:30pm transport. Ambulance will need: Medicare ambulance form completed and signed (MD or CRC) Copy of patient demographics [place] [facility] [place] [facility] DNR/DNI order, if active No MD to MD report necessary. Please call Nursing Report to , ask for supervisor process testing. Info to accompany patient: Narcotic Prescriptions Copies of Medication Administration Records and IV sheets for past two weeks. Plan: [employer] [facility] will be available to the patient and CRC for further assistance. PATRICIA SAAVEDRA, [employer] Pager [phone] EliotMiles MD - 06/24/2011 5:57 AM EST ORTHOPAEDIC [...] Vazquez RN - 06/23/2011 9:58 PM EST [phone] Patient sleepy tonight, but was able to [...] History: Patient lives with his mother in [facility], Stairs: 0 Baseline Mobility: independent with [...] interventions:18 minutes functional JOYCE CHERY PT 06/23/2011 Pager:[phone] Physical Therapy Rehabilitation Department Stephanie Borrego OT - 06/23/2011 10:00 AM EST Occupational Therapy Note Checked in with nursing this morning. Pt nauseous and unable to participate. This therapist unable to follow up in the pm. Stephanie Borrego, OTR Pager [phone] Miles Mccabe MD - 06/23/2011 7:51 AM [...] BELOW-KNEE performed by NARAYAN GAMINO JR at [facility] MAIN OR Social History: Patient lives [...] Pt asking OT for assistance to don counter dish carrier on L stump. Pt turning beat red when attempt to don counter dish carrier over stump, while long sitting in bed. [...] stump iftikhar wrapped and L stump with counter dish carrier on it. Pt with large pannis/abdomen. Informed [...] 2' swelling, and not locking. Pt issued counter dish carrier earlier today to wear to help shape [...] 3. Patient will be able to don counter dish carrier/ sleeve on L LE independently and appropriately [...] minutes Total timed interventions: 0 minutes Pager: [phone] STEPHANIE BORREGO OT 06/22/2011 Occupational Therapy Rehabilitation Department Agustin Baker MD - 06/22/2011 2:29 PM EST Regional Anesthesia Progress Note Date of Encounter: 06/22/2011 Provider: AGUSTIN BORWN MD, MD Attending: MD Uriah ID: Patient [...] was instructed to contact Regional Anesthesia Team ([id number]) for any unresolved sensory or motor deficits. Please contact Regional Anesthesia Team with any questions or concerns AGUSTIN BROWN MD, MD [phone] Shira Parks LD - 06/22/2011 1:49 [...] by Dr Gamino. 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 Pt went out- pt for PT after his last BKA but that was twelve yrs ago. Pt has a prosthesis for his L LE. I discussed in-pt rehab with pt and he agrees this would be beneficial. Pt requests referrals be made to [facility] [place] and [facility]. I will ask the SNF RS to make referrals. Pt should be ready on pending medical status and bed availability. Pt will need a S amb and has Medicare only. I will ask Cristina Trottier, UPTWISTER TENDER to see about applying for Medicaid. A: [...] History: Patient lives with his mother in [facility], Stairs: 0 Baseline Mobility: independent with L LE prosthesis, had stopped using a cane Equipment at home: 2 walkers, WC, cane, LLE prosthesis Precautions/Special Considerations: L BKA, new R BKA, LUE fistula, glasses Subjective: ???I can't lock the leg. It's because my leg is swollen?? Objective: Pt seen for evaluation today. Contacted [place] re: counter dish carrier for LLE Pain: mild, p.o meds, good [...] achieving full hip/knee extension. LLE has edema, counter dish carrier delivered to help. Expect he will progress [...] timed interventions:0 minutes JOYCE CHERY, PT 06/22/2011 Pager:[phone] Physical Therapy Rehabilitation Department Miles Mccabe MD [...] Franco RN - 06/21/2011 8:01 PM EST [phone] Patient alert and oriented times four. Lung sounds diminished bilaterally with moderate cough with no production. IS teaching completed with return demonstration. Hypoactive bowel sounds in all four quadrants, states he is passing flatus/burping. Last bowel movement per patient was yesterday. Pain well controlled with Morphine SOLE LEVELING MACHINE OPERATOR (settings checked) with LR at 100 cc/hr. [...] sugar at HS 222, covered per MAR. Masrosao on. Call light within reach. Nicola Royal [...] orders. 1537 straight cath'd for 650cc 1550 shuttle spotter initiated. Patient able to verbalize and demonstrate [id number] patient hr in 30's while dry heaving. Spontaneously resolved. Patient states nausea has resolved after zofran given. No further bradycardia. 1606 family at bedside. Patient states that he is feeling pretty good . Using shuttle spotter with good results. Patients glasses and teeth [...] Orthopaedic Medicine - Discharge Summary Patient Name: Leory Dailey Patient Age: 56 y.o. Birthdate: 1955 [...] complications. Patient began rehab on POD#1 with [facility], remembering to use a walker or crutches at all times for balance and protection. The SOLE LEVELING MACHINE OPERATOR was discontinued on POD#1 and the patient [...] a bowel movement. You can try an aerf-wld-hshgctk medication, miralax if needed. 2. When you [...] or stump. 4. Call your orthopaedic surgeon (#[phone]) with any fever, chills, sweats, redness or [...] AM Margaret Sawyer APRN [facility] 5c [phone] [facility] Joint Appt [facility] Endo Lab [facility] 5a [phone] [facility] 07/01/2011 2:20 PM Narayan Gamino Jr., MD [facility] 3c [phone] None Future Orders Please Complete By Expires Chlorhexidine scrub: [[id number] Custom] Process Instructions: Scheduling Instructions: Comments: Shower and wash the intended surgical site as instructed the evening and morning prior to surgery. Dispense 1 bottle. Questions: Responses: Provider Contact Information: Primary Care Provider: CANIDDO JENKINS MD [phone] Hospital Attending: Narayan Gamino Jr., MD Department of Orthopaedic Surgery Sports: [phone] For questions regarding this document or issues relating to this hospitalization on the Medical Service, please contact your inpatient physician through the [facility] Wildlife Science Professor . Issues after hours and on weekends [...] Mccabe MD - 06/21/2011 3:27 PM EST [facility] Operative Note Patient Name: Leroy Dailey : [id number] MR#: [id number] Case Date: 06/21/2011 Surgeon: Surgeon(s) and Role: [...] sterile fashion. A time-out was performed per [facility] protocol. The team agreed to proceed. An [...] Operative Note Patient Name: Leroy Dailey : [id number] MR#: [id number] Case Date: 06/21/2011 Surgeon: Surgeon(s) and Role: [...] 06/21/2022 Office Visit Neurology Tyler Rojas MD [facility] Medical [facility] Neurology [place], [place] [phone] (Oscar escobedo) 06/29/2022 Appointment Cardiology Violetta Sanford M D [address] [place] [address] (Oscar escobedo) 06/30/2022 Infusion Hematology and Oncology 07/14/2022 Infusion Hematology and Oncology 07/28/2022 Infusion Hematology and Oncology 08/11/2022 Infusion Hematology and Oncology 08/16/2022 Office Visit Audiology Mindy Moody AUD [facility] AUDIOLOGY DEPT [place], [place] [address] (Wo rk) 11/04/2022 Office Visit Rheumatology Dante Freedman PA [facility] RHEUMATOLOGY [place], [place] [address] (Wo rk) documented as of [...] CARE TEST ORDERABLE S Performing Organization Address City/[facility]/ZIP Code Phon e Number [address] [facility] PO[facility] GLUCOSE LAB USE ONLY (06/24/2011 6:49 [...] Organization Address City/State/[place] [address] CERNER MILLENNIUM SCAN, PERIPHERAL BLOOD (06/24/2011 4:18 AM EST) Spare Change Payments Method Time Signature Plat Estimate Normal CERNER [...] Organization Address City/State/[place] [address] [facility] [address] CERNER MILLENNIUM (ABNORMAL) DIFFERENTIAL, AUTOMATED (06/24/2011 4:18 AM EST) Spare Change Payments Method Time Signature Neutrophils % 73.8 (H) [...] Organization Address City/State/ZIP Code Phon e Number [place] [id number]OS[address] CERNER MILLENNIUM (ABNORMAL) BASIC [...] Organization Address City/State/[place] [address] CERNER MILLENNIUM (ABNORMAL) Creatinine, serum (06/24/2011 4:18 AM EST) Analysis Performed At [facility] Time Signature Creatinine 2.02 (H) 0.80 - [...] Jr., MD CHEMISTRY ORDERABLES Performing Organization Address City/[facility] e Number [address] CERNER MILLENNIUM (ABNORMAL) BUN (06/24/2011 4:18 AM EST) P athologist Signature BUN 42 (H) 10 - 20 CERNER mg/dL MILLENNIUM Specimen Anatomical Collection Method Collection Time Receive d Time (Source) Location / / Volume Laterality Blood specimen 06/24/2011 4:18 AM 011 4:23 (specimen) EST AM EST Narayan Gamino Jr., MD CHEMISTRY ORDERABLES Performing Organization Address [facility] [place] [address] CERNER MILLENNIUM (ABNORMAL) Electrolytes [...] Organization Address City/State/[place] [address] CERNER MILLENNIUM (ABNORMAL) CBC [...] Jr., MD HEMATOLOGY ORDERABLES Performing Organization Address City/[facility]/[place] [address] CERNER MILLENNIUM (ABNORMAL) POCT [...] CARE TEST ORDERABLE S Performing Organization Address City/[facility]/[place] [address] CERNER MILLENNIUM (ABNORMAL) POCT [...] CARE TEST ORDERABLE S Performing Organization Address City/[facility]/ZIP [facility] [place] [address] CERNER MILLENNIUM (ABNORMAL) POCT [...] Address City/State/ZIP [place] [address] CERNER MILLENNIUM (ABNORMAL) Basic [...] Jr., MD CHEMISTRY ORDERABLES Performing Organization Address City/[facility] e Number [address] [facility] (ABNORMAL) POCT GLUCOSE LAB USE ONLY (06/23/2011 2:24 PM EST) athologist Signature POC Glucose 274 (H) 60 - 199 CERNER mg/dL [facility] Comment: Supplemental ranges: <110 mg/dL before meals <200 mg/dL all other times of the day Specimen Anatomical Collection Method Collection Time Receive d Time (Source) Location / / Volume Laterality Blood specimen 06/23/2011 2:24 PM 011 2:24 (specimen) EST PM EST Narayan Gamino Jr., MD POINT OF CARE TEST ORDERABLE S Performing Organization Address City/[facility] Phon e Number [address] [facility] (ABNORMAL) POCT GLUCOSE LAB USE ONLY (06/23/2011 [...] Address City/State/ZIP Code Phon e Number [address] CERNER MILLENNIUM (ABNORMAL) POCT GLUCOSE LAB USE ONLY (06/23/2011 6:37 AM EST) athologist Signature POC Glucose 233 (H) 60 [...] CARE TEST ORDERABLE S Performing Organization Address City/[facility]/ZIP Code Phon e Number [address] CERNER MILLENNIUM (ABNORMAL) DIFFERENTIAL, AUTOMATED (06/23/2011 4:39 AM EST) [facility] gist Method Time Signature Neutrophils % 70.8 [...] Jr., MD HEMATOLOGY ORDERABLES Performing Organization Address City/[facility]/[place] [address] CERNER MILLENNIUM (ABNORMAL) BUN (06/23/2011 4:39 AM EST) P athologist Signature BUN 44 (H) 10 - 20 CERNER mg/dL MILLENNIUM Specimen Anatomical Collection Method Collection Time Receive d Time (Source) Location / / Volume Laterality Blood specimen 06/23/2011 4:39 AM 011 4:55 (specimen) EST AM EST Narayan Gamino Jr., MD CHEMISTRY ORDERABLES Performing Organization Address City/[facility] [address] CERNER MILLENNIUM (ABNORMAL) Creatinine, [...] Organization Address City/State/ZIP Code Phon e Number [place] [phone] CERNER MILLENNIUM (ABNORMAL) Electrolytes [...] Jr., MD CHEMISTRY ORDERABLES Performing Organization Address City/[facility] [place] [address] CERNER MILLENNIUM (ABNORMAL) CBC [...] Jr., MD HEMATOLOGY ORDERABLES Performing Organization Address City/[facility] Phon e Number [address] CERNER MILLENNIUM POCT GLUCOSE [...] CARE TEST ORDERABLE S Performing Organization Address City/[facility]/ZIP Code Phon e Number [address] CERNER MILLENNIUM POCT GLUCOSE [...] Address City/State/ZIP Code Phon e Number [address] CERNER MILLENNIUM (ABNORMAL) Basic [...] Jr., MD CHEMISTRY ORDERABLES Performing Organization Address City/[facility]/[place] [address] CERNER MILLENNIUM POCT GLUCOSE LAB USE ONLY (06/22/2011 11:57 AM EST) P athologist Signature POC Glucose 136 60 - 199 CERNER mg/dL [facility] Comment: Supplemental ranges: <110 mg/dL before meals <200 mg/dL all other times of the day Specimen Anatomical Collection Method Collection Time Receive d Time (Source) Location / / Volume Laterality Blood specimen 06/22/2011 11:57 1 (specimen) AM EST 11:57 AM EST Narayan Gamino Jr., MD POINT OF CARE TEST ORDERABLE S Performing Organization Address [facility] Phon e Number [address] [facility] EKG 12 Lead (06/22/2011 7:43 AM EST) Component Value Ref Range Test Analysis Performed Pathologis t Method Time At Signature Ventricular rate 54 BPM MUSE SYSTEM Atrial Rate 54 BPM MUSE SYSTEM P-R Interval 190 ms MUSE SYSTEM QRS Duration 108 ms MUSE SYSTEM Q-T Interval 426 ms MUSE SYSTEM QTC Calculated 403 ms MUSE SYSTEM (Bezet) Calculated P [place] 19 degrees MUSE SYSTEM Calculated R [place] -5 degrees MUSE SYSTEM Calculated T [place] 35 degrees MUSE SYSTEM INTERPRETATION Sinus bradycardia [...] Jr., MD ECG ORDERABLES Performing Organization Address City/[facility]/ZIP Code Phon e Number MUSE SYSTEM (ABNORMAL) POCT GLUCOSE LAB USE ONLY (06/22/2011 6:35 AM EST) P athologist Signature POC Glucose 232 (H) 60 - 199 CERNER mg/dL [facility] Comment: Supplemental ranges: <110 mg/dL before meals <200 mg/dL all other times of the day Specimen Anatomical Collection Method Collection Time Receive d Time (Source) Location / / Volume Laterality Blood specimen 06/22/2011 6:35 AM 011 6:35 (specimen) EST AM EST Narayan Gamino Jr., MD POINT OF CARE TEST ORDERABLE S Performing Organization Address City/State/ZIP Code Phon e Number [place] [phone] CERNER MILLENNIUM (ABNORMAL) Basic [...] Comment: Called by: adriana, Read back by: Maneul Fishman and, Date/Time:06/22/11 07:00. Please note: ??Patients [...] Organization Address City/State/[place] [address] CERNER MILLENNIUM (ABNORMAL) DIFFERENTIAL, AUTOMATED (06/22/2011 3:52 AM EST) [facility] Method Time Signature Neutrophils % 77.4 (H) [...] Organization Address City/State/[place] [address] CERNER MILLENNIUM (ABNORMAL) Basic [...] Jr., MD CHEMISTRY ORDERABLES Performing Organization Address City/[facility] [place] [address] CERNER MILLENNIUM (ABNORMAL) CBC [...] Jr., MD HEMATOLOGY ORDERABLES Performing Organization Address City/[facility]/[place] [address] CERNER MILLENNIUM (ABNORMAL) POCT [...] Organization Address City/State/[place] [address] CERNER MILLENNIUM POCT GLUCOSE [...] CARE TEST ORDERLEESA S Performing Organization Address City/[facility]/[place] [address] CERNER MILLENNIUM POCT GLUCOSE [...] Organization Address City/State/[place] [address] CERNER MILLENNIUM SURGICAL PATHOLOGY REPORT (06/21/2011 2:40 PM EST) Component Value Ref Test Analysis Performed At [facility] gist Range Method Time Signature Surgical CERNER Pathology ? [facility] Report ? Provider: ?? NARAYAN GAMINO JR ??Pt. Name: ?? LEROY DAILEY ? Acc #: ?[id number] ?Pt. MRN: ?[id number] ? Col Date: ?? 06/21/20 11 ?/Sex: [...] ? ---Clinical Information--- ? Specimen Submitted: ? [facility] ? Provider: ?? NARAYAN GAMINO JR ??Pt. Name: ?? LEROY DAILEY [place]ia ? Acc #: ?[id number] ?Pt. MRN: ?[id number] ? Col Date: ?? 06/21/20 11 ?/Sex: ?1955,(56 years),Male ? Rec Date: ?? 06/21/2011 ?LOC: ?3WST ? SURGICAL PATHOLOGY ? A - Rt below the knee amputation ? Clinical History/Diagnosis: ? Diabetic foot ulcer Specimen (Source) Anatomical Collection Method Collection Time Re ceived Time Location / / Volume Laterality 06/21/2011 2:40 PM EST Narayan Gamino Jr., MD PATHOLOGY/CYTOLOGY ORDERABLE S Performing Organization Address City/[facility] Code Phon e Number [address] [facility] Specimen to Pathology (surgical or derm) (06/21/2011 1:47 PM EST) Specimen Anatomical Collection Method Collection Time Receive d Time (Source) Location / / Volume Laterality AP Specimen 06/21/2011 1:47 PM 1 1:47 EST PM EST Narrative [facility] - 06/21/2011 1:[address] Specimen requisition ordered. ??Separate Pathology report to follow Narayan Gamino Jr., MD PATHOLOGY/CYTOLOGY ORDERABLE S Performing Organization Address City/[facility] Phon e Number [address] [facility] (ABNORMAL) POCT GLUCOSE LAB USE ONLY (06/21/2011 10:19 AM EST) P athologist Signature POC Glucose 357 (H) 60 - 199 CERNER mg/dL [facility] Comment: Supplemental ranges: <110 mg/dL before meals <200 mg/dL all other times of the day Specimen Anatomical Collection Method Collection Time Receive d Time (Source) Location / / Volume Laterality Blood specimen 06/21/2011 10:19 1 (specimen) AM EST 10:19 AM EST Narayan Gamino Jr., MD POINT OF CARE TEST ORDERABLE S Performing Organization Address City/State/ZIP Code Phon e Number [address] [facility] documented in this encounter Visit Diagnoses Diagnosis [...] mg 0600 (Given - Provider: Nikolay Wyatt, RN)1440 (Given - Provider: Andria Vazquez RN)2140 (Given - Provider: Ashley De Leon, SHEILA) 0600 (Not Given - Provider: Mer reveles RN - Reason: Patient Unable - Comment: pt had vomited)1438 (Given - Provider: Lizbeth Mcclure RN)2200 (Given by Other - Provider: Jael Vela, SHEILA) 0600 (Given - Provider: Jael Vela RN)1400 (Due) 1,000 mg, Oral, EVERY 8 HOURS [...] esomeprazole (NEXIUM) capsule 40 mg (CANCELED) 914 (Mee reaves - Provider: Andria Vazquez RN) 1015 (Given - Provider: Lizbeth Mcclure RN) 09 (G iven - Provider: Nicky Hardy) 40 mg, Oral, DAILY, First dose on Tue at 0900, Until Discontinued, Routine fluticasone (FLONASE) 50 mcg/Actuation nasal spray 1 s pray (CANCELED) 15 (Given - Provider: Andria Vazquez RN) 1015 (Given - Provider: Lizbeth Mcclure RN) 09 (Given - Provider: Nicky morataya) 1 spray, Each Nare, DAILY, First dose on Tue06/21/11 at 1800, Until Discontinued, Routine folic acid (FOLVITE) tablet 2,000 mcg (CANCELED) 914 (Given - Provider: Andria Vazquez RN) 1015 (Given - Provider: Lizbeth Mcclure RN) 0900 (Mee mcgowanen - Provider: Nicky Hardy) 2 mg = [...] 1016 (Given - Provider: Lizbeth Mcclure RN) 07 (Given - Provider: Jael Vela, SHEILA) [...] Discontinued, Routine mycophenolate (CELLCEPT) capsule 500 mg 0917 (Given - Provider: Andria Vazquez RN)2100 (Given - [...] t ablet 0917 (Given - Provider: Andria Vazquez, SHEILA)2099 (Given - Provider: Ashley De Leon, SHEILA) [...] SHEILA) 0600 (Not Given - Provider: Jael Vela [...] RN)2100 (Given - Provider: Ashley De Leon, RN) 1016 (Given - Provider: Lizbeth Mcclure, RN)2017 (Given - Provider: Andria Vazquez RN) [...] mg 1502 (Given - P rovider: Andria Vazquez, RN)1805 (Given - Provider: Andria Vazquez RN)2105 [...] PRN, St arting Tue06/21/11 at 1730, Until Tue06/24/11 at 1633, Nausea, Vomiting, Routine OXYcodone (ROXICODONE) immediate release tablet 15 mg (CANCELED) 0918 (Given - Provider: Andria Vazquez RN) 15 mg, Oral, EVERY 4 HOURS PRN, Starting Tue06/21/11 at 1730, Until Tue06/22/11 at 1143, Pain, severe pain, For severe pain. Do not exceed 15 mg in 4 hours. If pain not relieved, call provider., Routine documented in this encounter Care Teams Farm Machine Tender Relationship Specialty Start Date End Date Candido Jenkins MD PCP - General 05/20/11 04/01/13 [address] [place] [address] documented as of this encounter
--- OUTSIDE RECORDS SUMMARY | 2022-06-16 12:36 | XMS_ITS | Encounter Summary ---
:1955 [place] [address] Care Team Providers Name Role Phone Candido Jenkins MD Primary Care Provider Encounter Details Date Type Department Care Team Description 06/21/2011 Anesthesia Event Main Operating Room Cheikh Padilla, [facility] Giovana tyler [place] [address] [place] [address] [phone] (Wo rk) Anesthesia Record Procedure Summary Procedure Name Responsible Anesthesia Start Anesthesia Stop Time Anesthesiologist Time @Uriah OLMOS Christopher, MD 06/21/11 1255 06/21/11 1515 BELOW-KNEE (WRVU 15.37) (Right: Leg Lower) Events Date Time Event Comment [...] no Does patient need to go to [facility] for testing?: yes H&P w/PCP: yes Add'l [...] Length: 10 cm Gauge: 21 Needle Type: V-dkusp-litgp Medication injection made incrementally with aspirations. Nerve [...] Rojas MD [facility] Neurology [place] [phone] (Wo rk) 06/29/2022 Appointment Cardiology Violetta Sanford M D [address] [place] [address] (Wo rk) 06/30/2022 Infusion Hematology and Oncology 07/14/2022 Infusion Hematology and Oncology 07/28/2022 Infusion Hematology and Oncology 08/11/2022 Infusion Hematology and Oncology 08/16/2022 Office Visit Audiology Mindy Moody AUD [facility] AUDIOLOGY [place], [place] [address] (Wo rk) 11/04/2022 Office Visit Rheumatology Dante Freedman, DA [facility] RHEUMATOLOGY [place], [place] [address] ( rk) documented as of this encounter Visit Diagnoses Not on filedocumented in this encounter Care Teams Treater Relationship Specialty Start Date End Date Candido Jenkins MD PCP - General 05/20/11 04/01/13 [address] [place], [place] [address] documented as of this encounter
--- OUTSIDE RECORDS SUMMARY | 2022-06-16 12:36 | XMS_ITS | Encounter Summary ---
:1955 Author Organization [facility] [place] [address] Care Team Providers Name Role Phone Candido Jenkins MD Primary Care Provider Encounter Details Date Type Department Care Team Description 06/04/2011 Orders Only Orthopaedics at [facility] Narayan Roy Open wound of right ankle; [facility] MD Raúl Alex, below knee; Drive [facility] Diabetes mellitus [place] [address] ORTHOPAEDIC SURGERY [place], [place] [address] Social History Tobacco Use Types [...] Rojas MD [facility] Neurology [place], [place] [phone] (Wo rk) 06/29/2022 Appointment Cardiology Violetta Sanford M D [address] [place] [address] (Wo rk) 06/30/2022 Infusion Hematology and Oncology 07/14/2022 Infusion Hematology and Oncology 07/28/2022 Infusion Hematology and Oncology 08/11/2022 Infusion Hematology and Oncology 08/16/2022 Office Visit Audiology Mindy Moody AUD [facility] AUDIOLOGY [place], [place] 0[address] (Wo rk) 11/04/2022 Office Visit Rheumatology Dante Freedman PA [facility] RHEUMATOLOGY [place], [place] 0[address] (Wo rk) documented as of [...] uncontrolled documented in this encounter Care Teams Rubber Goods Assembler Relationship Specialty Start Date End Date Candido Jenkins MD PCP - General 05/20/11 04/01/13 [address] [place] [address] documented as of this encounter
--- OUTSIDE RECORDS SUMMARY | 2022-06-16 12:36 | XMS_ITS | Encounter Summary ---
:1955 Author Organization [facility] [place] [address] Care Team Providers Name Role Phone Candido Jenkins MD Primary Care Provider Encounter Details Date Type Department Care Team Description 06/04/2011 Clinical Support Same Day at [facility] [place] [address] Social History Tobacco Use Types Packs/Day [...] this encounter Miscellaneous Notes Miscellaneous - Ezequiel Foreign Trade Teacher - 06/08/2011 2:47 PM EST documented in this encounter Plan of Treatment Upcoming Encounters Date Type Specialty Care Team Description 06/16/2022 Infusion Hematology and Oncology 06/21/2022 Office Visit Neurology Tyler Rojas MD [facility] Neurology [place], [place] [phone] (Wo rk) 06/29/2022 Appointment Cardiology Violetta Sanford M D [facility] [address] [place] [address] (Wo rk) 06/30/2022 Infusion Hematology and Oncology 07/14/2022 Infusion Hematology and Oncology 07/28/2022 Infusion Hematology and Oncology 08/11/2022 Infusion Hematology and Oncology 08/16/2022 Office Visit Audiology Mindy Moody AUD [facility] AUDIOLOGY [place], [place] 0[address] (Wo rk) 11/04/2022 Office Visit Rheumatology Dante Freedman PA [facility] RHEUMATOLOGY [place], [place] 0[address] (Wo rk) documented as of this encounter Visit Diagnoses Not on filedocumented in this encounter Care Teams Adjunct Physics Instructor Relationship Specialty Start Date End Date Candido Jenkins MD PCP - General 05/20/11 04/01/13 [address] [place] [address] documented as of this encounter
--- OUTSIDE RECORDS SUMMARY | 2022-06-16 12:36 | XMS_ITS | Encounter Summary ---
:1955 Author Organization [facility] [place] [address] Care Team Providers Name Role Phone Suhas Chowdhury MD Primary Care Provider Encounter Details Date Type Department Care Team Description 05/12/2011 Follow-Up Orthopaedics at [facility], DR CRISTIAN Parrisht's arthropathy, diabe tatiana, R; [facility] D rive Open wound of right ankle; [place] [address] Puncture wound of thumb, lef t [phone] Social History Tobacco Use Types Packs/Day Years [...] [250.60HA] 02/16/2011 Amputated below knee [] 08/02/2006 Problem: Diabetic male with Charcot arthropathy, [...] MD [facility] Neurology [place], [place] [phone] (Wo rk) 06/29/2022 Appointment Cardiology Violetta Sanford M D [address] [place] [address] (Wo rk) 06/30/2022 Infusion Hematology and Oncology 07/14/2022 Infusion Hematology and Oncology 07/28/2022 Infusion Hematology and Oncology 08/11/2022 Infusion Hematology and Oncology 08/16/2022 Office Visit Audiology Mindy Moody AUD [facility] AUDIOLOGY [place], [place] 0[address] (Wo rk) 11/04/2022 Office Visit Rheumatology Dante Freedman PA [facility] RHEUMATOLOGY [place], [place] 0[address] (Wo rk) documented as of [...] complication documented in this encounter Care Teams Offset Assistant Press Operator Relationship Specialty Start Date End Date Suhas Chowdhury MD PCP - General 06/16/10 05/19/[address] [place] [id number] documented as of this encounter
--- OUTSIDE RECORDS SUMMARY | 2022-06-16 12:36 | XMS_ITS | Encounter Summary ---
:1955 Author Organization [facility] [place] [address] Care Team Providers Name Role Phone Suhas Chowdhury MD Primary Care Provider Reason for Visit Reason Onset Date Comments Medication Refill 03/24/2011 Encounter Details Date Type Department Care Team Description 03/24/2011 Refill Solid Organ Transplant at Karen [facility], HTN (hypertension); [facility] MC KAY STITCHER Hypercholesteremia [facility] [place] [address] TRANSPLANT SURGERY [phone] [place], [place] [address] (Oscar escobedo) Social History Tobacco [...] Rojas MD [facility] Dr [place]i [place], [place] [phone] (Wo rk) 06/29/2022 Appointment Cardiology Violetta Sanford M D [address] [place], [place] [id number] (Oscar rk) 06/30/2022 Infusion Hematology and Oncology 07/14/2022 Infusion Hematology and Oncology 07/28/2022 Infusion Hematology and Oncology 08/11/2022 Infusion Hematology and Oncology 08/16/2022 Office Visit Audiology Mindy Moody AUD [facility] AUDIOLOGY [place], [place] 0[address] (Wo rk) 11/04/2022 Office Visit Rheumatology Dante Freedman, PA [facility] RHEUMATOLOGY [place], [place] [address] (Wo rk) documented as of this encounter Visit Diagnoses Diagnosis HTN (hypertension) Unspecified essential hypertension Hypercholesteremia Pure hypercholesterolemia documented in this encounter Care Teams Sales Floor Manager Relationship Specialty Start Date End Date Suhas Chowdhury MD PCP - General 06/16/10 05/19/11 [address] [place] [address] documented as of this encounter
--- OUTSIDE RECORDS SUMMARY | 2022-06-16 12:36 | XMS_ITS | Encounter Summary ---
:1955 Author Organization [facility] [place] [address] Care Team Providers Name Role Phone Suhas Chowdhury MD Primary Care Provider Encounter Details Date Type Department Care Team Description 03/10/2011 Abstract Orthopaedics at [facility] Hedy Montero, [place] [address] Social History Tobacco Use Types Packs/Day Years [...] Tyler Rojas MD [facility] Neurology [place], [place] [phone] (Wo rk) 06/29/2022 Appointment Cardiology Violetta Sanford M D [address] [place], [place] [address] (Wo rk) 06/30/2022 Infusion Hematology and Oncology 07/14/2022 Infusion Hematology and Oncology 07/28/2022 Infusion Hematology and Oncology 08/11/2022 Infusion Hematology and Oncology 08/16/2022 Office Visit Audiology Mindy Moody AUD [facility] AUDIOLOGY [place], [place] 0[address] (Wo rk) 11/04/2022 Office Visit Rheumatology Dante Freedman PA [facility] RHEUMATOLOGY [place], [place] 0[address] (Wo rk) documented as of this encounter Visit Diagnoses Not on filedocumented in this encounter Care Teams Back Feeder Plywood Layup Line Relationship Specialty Start Date End Date Suhas Chowdhury MD PCP - General 06/16/10 05/19/11 [address] [place] [address] documented as of this encounter
--- OUTSIDE RECORDS SUMMARY | 2022-06-16 12:36 | XMS_ITS | Encounter Summary ---
:1955 Author Organization [facility] Address [facility] [place] [address] Care Team Providers Name Role Phone Suhas Chowdhury MD Primary Care Provider Reason for Visit Reason Comments Tremors Follow-up Encounter Details Date Type Department Care Team Description 03/31/2011 Follow-Up Neurology at [facility] Angel Boyd MD Tremor, essential [facility] (Pr imary Dx) [place] [address] NEUROLOGY DEPT. [phone] [place] [id number] (Wo rk) Social History Tobacco Use Types [...] 10:36 AM EDT Copy: Suhas Chowdhury M.D. [facility] [address] [place] [address] Date of : 1955 I saw Dar [...] Rojas MD [facility] [place] [phone] (Wo rk) 06/29/2022 Appointment Cardiology Violetta Sanford M D [address] [place] [address] (Wo rk) 06/30/2022 Infusion Hematology and Oncology 07/14/2022 Infusion Hematology and Oncology 07/28/2022 Infusion Hematology and Oncology 08/11/2022 Infusion Hematology and Oncology 08/16/2022 Office Visit Audiology Mindy Moody AUD [facility] AUDIOLOGY [place], [place] 0[address] (Wo rk) 11/04/2022 Office Visit Rheumatology Dante Freedman PA [facility] RHEUMATOLOGY [place], [place] 0[address] (Wo rk) documented as of this encounter Visit Diagnoses Diagnosis Tremor, essential - Primary Essential and other specified forms of t remor documented in this encounter Care Teams Coloring Room Man Relationship Specialty Start Date End Date Suhas Chowdhury MD PCP - General 06/16/10 05/19/11 [address] [place] [address] documented as of this encounter
--- OUTSIDE RECORDS SUMMARY | 2022-06-16 12:36 | XMS_ITS | Encounter Summary ---
:1955 Author Organization [facility] [place] [address] Care Team Providers Name Role Phone Suhas Chowdhury MD Primary Care Provider Reason for Visit Reason Onset Date Comments Kidney Transplant Follow-up 04/14/2011 Encounter Details Date Type Department Care Team Description 04/14/2011 Refill Solid Organ Transplant Karen [facility], Transplant kidney at [facility] UPPER AND BOTTOM LACER HAND (Primary Dx) [facility] [address] TRANSPLANT SURGERY [phone] [place] [id number] (Wo rk) Social History Tobacco Use Types [...] Tyler Rojas MD [facility] Neurology [place], [place] [phone] (Wo rk) 06/29/2022 Appointment Cardiology Violetta Sanford M D [facility] [address] [place] [address] (Wo rk) 06/30/2022 Infusion Hematology and Oncology 07/14/2022 Infusion Hematology and Oncology 07/28/2022 Infusion Hematology and Oncology 08/11/2022 Infusion Hematology and Oncology 08/16/2022 Office Visit Audiology Mindy Moody AUD [facility] AUDIOLOGY DEPT [place], [place] 0[address] (Wo rk) 11/04/2022 Office Visit Rheumatology Dante Freedman PA [facility] RHEUMATOLOGY [place], [place] 0[address] (Wo rk) documented as of this encounter Visit Diagnoses Diagnosis Transplant kidney - Primary Kidney replaced by transplant documented in this encounter Care Teams Tape Calender Relationship Specialty Start Date End Date Suhas Chowdhury MD PCP - General 06/16/10 05/19/11 [address] [place] [address] documented as of this encounter
--- OUTSIDE RECORDS SUMMARY | 2022-06-16 12:36 | XMS_ITS | Encounter Summary ---
:1955 Author Organization [facility] [place] [address] Care Team Providers Name Role Phone Suhas Chowdhury MD Primary Care Provider Encounter Details Date Type Department Care Team Description 04/16/2011 Orders Only [facility]ed[facility] at [facility] Abi arthropathy, diabetic [facility] (Primary Dx) [place] [address] DR [phone] ORTHOPAEDIC SURGERY [place], [place] [address] Social History Tobacco Use Types [...] Tyler Rojas MD [facility] Neurology [place], [place] [phone] (Wo rk) 06/29/2022 Appointment Cardiology Violetta Sanford M D [address] [place], [place] [address] (Wo rk) 06/30/2022 Infusion Hematology and Oncology 07/14/2022 Infusion Hematology and Oncology 07/28/2022 Infusion Hematology and Oncology 08/11/2022 Infusion Hematology and Oncology 08/16/2022 Office Visit Audiology Mindy Moody AUD [facility] AUDIOLOGY [place], [place] [address] (Wo rk) 11/04/2022 Office Visit Rheumatology Dante Freedman, PA [facility] RHEUMATOLOGY [place], [place] [address] (Wo rk) documented as of this encounter Visit Diagnoses Diagnosis Charcot's arthropathy, diabetic - Primar 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
--- OUTSIDE RECORDS SUMMARY | 2022-06-16 12:36 | XMS_ITS | Encounter Summary ---
:1955 Author Organization [facility] [place] [address] Care Team Providers Name Role Phone Suhas Chowdhury MD Primary Care Provider Encounter Details Date Type Department Care Team Description 04/26/2011 Hospital Encounter XRay at [facility]'s arthropathy, [address] [place] [address] [place] [address] Social History Tobacco Use Types Packs/Day [...] Tyler Rojas MD [facility] Neurology [place], [place] [phone] (Oscar escobedo) 06/29/2022 Appointment Cardiology Violetta Sanford M D [address] [place] [address] (Wo rk) 06/30/2022 Infusion Hematology and Oncology 07/14/2022 Infusion Hematology and Oncology 07/28/2022 Infusion Hematology and Oncology 08/11/2022 Infusion Hematology and Oncology 08/16/2022 Office Visit Audiology Mindy Moody AUD [facility] AUDIOLOGY DEPT [place], [place] 0[address] (Wo rk) 11/04/2022 Office Visit Rheumatology Dante Freedman PA [facility] RHEUMATOLOGY [place] [address] (Wo rk) documented as of this encounter [...] uncontrolled documented in this encounter Care Teams Veneer Jointer Returner Relationship Specialty Start Date End Date Suhas Chowdhury MD PCP - General 06/16/10 05/19/11 [address] [place] [address] documented as of this encounter
--- OUTSIDE RECORDS SUMMARY | 2022-06-16 12:37 | XMS_ITS | Encounter Summary ---
:1955 Author Organization [facility] Address [facility] [place] [address] Care Team Providers Name Role Phone Suhas Chowdhury MD Primary Care Provider Reason for Visit Reason Onset Date Comments Medication Refill 02/25/2011 Encounter Details Date Type Department Care Team Description 02/25/2011 Refill Solid Organ Transplant at [facility], Hypercholesteremia; [facility] BLACK [place]ER HTN (hypertension) [facility] [place] [address] TRANSPLANT SURGERY [phone] [place], [place] [address] (Oscar escobedo) Social History Tobacco [...] Tyler Rojas MD [facility] Dr [place]i [place], [place] [address] (Wo rk) 06/29/2022 Appointment Cardiology Violetta Sanford M D [address] [place], [place] [address] (Oscar rk) 06/30/2022 Infusion Hematology and Oncology 07/14/2022 Infusion Hematology and Oncology 07/28/2022 Infusion Hematology and Oncology 08/11/2022 Infusion Hematology and Oncology 08/16/2022 Office Visit Audiology Mindy Moody AUD [facility] AUDIOLOGY [place], [place] 0[address] (Wo rk) 11/04/2022 Office Visit Rheumatology Dante Freedman, PA [facility] RHEUMATOLOGY [place], [place] 0[address] (Wo rk) documented as of this encounter Visit Diagnoses Diagnosis Hypercholesteremia Pure hypercholesterolemia HTN (hypertension) Unspecified essential hypertension documented in this encounter Care Teams Chief Power Dispatcher Relationship Specialty Start Date End Date Suhas Chowdhury MD PCP - General 06/16/10 05/19/[address] [place] [address] documented as of this encounter
--- OUTSIDE RECORDS SUMMARY | 2022-06-16 12:37 | XMS_ITS | Encounter Summary ---
:1955 Author Organization [facility] [place] [address] Care Team Providers Name Role Phone Suhas Chowdhury MD Primary Care Provider Encounter Details Date Type Department Care Team Description 09/09/2010 Follow-Up Endocrinology at [facility] Karine Antonio, [facility] D [facility] [place] [address] ENDOCRINOLOGY DEPT. [phone] [place], [place] [address] (Wo rk) Social History Tobacco Use Types Packs/Day Years Used Date Smoking Tobacco: Never Assessed Sex Assigned at Date Recorded Not on file documented as of this encounter Plan of Treatment Upcoming Encounters Date Type Specialty Care Team Description 06/16/2022 Infusion Hematology and Oncology 06/21/2022 Office Visit Neurology Tyler Rojas MD [facility] Neurology [place], [place] [address] 6-[address] (Wo rk) 06/29/2022 Appointment Cardiology Violetta Sanford M D [address] [place], [place] [address] (Wo rk) 06/30/2022 Infusion Hematology and Oncology 07/14/2022 Infusion Hematology and Oncology 07/28/2022 Infusion Hematology and Oncology 08/11/2022 Infusion Hematology and Oncology 08/16/2022 Office Visit Audiology Mindy Moody AUD [facility] AUDIOLOGY DEPT [place], [place] [address] (Wo rk) 11/04/2022 Office Visit Rheumatology Dante Freedman PA [facility] RHEUMATOLOGY [place], [place] [address] (Wo rk) documented as of this encounter Visit Diagnoses Not on filedocumented in this encounter Care Teams Top Knitter Relationship Specialty Start Date End Date Suhas Chowdhury MD PCP - General 06/16/10 05/19/11 [address] [place] [address] documented as of this encounter
--- OUTSIDE RECORDS SUMMARY | 2022-06-16 12:37 | XMS_ITS ---
:1955 Author Organization [place] [place] [address] Care Team Providers Name Role Phone Violetta Sanford MD Primary Care Provider [facility] [place]: Right KidneyTransplanted on 02/29/2008Marked as Active Follow-up on 02/29/2008Reason: Donor Transplant Kidney CoordinatorKLAUDIA Jacobhone: N/AFax: N/AEmail: N/A [place] Organ Diagnosis Organ Primary Contributory Kidney Diabetes Mellitus - Type II Donor Information Organ ABO Source Meets Risk HLA Match Mismatches [facility] Criteria Right Kidney O A: T cell Transplanted B: (Negative) DR: Right Kidney Donor Serology Results Anti-HBcAb HBsAg HBsAb HBV DNA Anti-HCV Anti-CMV No results on file No results on No results on No results No results on No results on file file on file file file Anti-HTLV I/II RPR/VDRL EBV IgG EBV IgM EBNA No results on file No results on file No results on No results on N o results on file file file Care Team Name Role Phone Fax Email Aria Khan RN Kidney Coordinator N/A N/A N/A Events Post-Transplant Pre-Transplant Admitted: 02/28/2007 Center waitlisted: 12/22/2005 Transplanted: 02/29/2008 Discharged: 03/11/2008
--- OUTSIDE RECORDS SUMMARY | 2022-06-16 12:37 | XMS_ITS | Encounter Summary ---
:1955 Author Organization [facility] [place] [address] Care Team Providers Name Role Phone Suhas Chowdhury MD Primary Care Provider Encounter Details Date Type Department Care Team Description 07/21/2010 Follow-Up Orthopaedics at [facility], DR CONV [facility] Nikolay Menchaca MD [facility] [place] [address] [place] [address] Social History Tobacco Use Types Packs/Day Years Used Date Smoking Tobacco: Never Assessed Sex Assigned at Date Recorded Not on file documented as of this encounter Plan of Treatment Upcoming Encounters Date Type Specialty Care Team Description 06/16/2022 Infusion Hematology and Oncology 06/21/2022 Office Visit Neurology Tyler Rojas MD [facility] Neurology [place], [place] [address] (Wo rk) 06/29/2022 Appointment Cardiology Violetta Sanford M D [address] [place], [place] [address] (Wo rk) 06/30/2022 Infusion Hematology and Oncology 07/14/2022 Infusion Hematology and Oncology 07/28/2022 Infusion Hematology and Oncology 08/11/2022 Infusion Hematology and Oncology 08/16/2022 Office Visit Audiology Mindy Moody AUD [facility] AUDIOLOGY [place], [place] [address] (Wo rk) 11/04/2022 Office Visit Rheumatology Dante Freedman PA [facility] RHEUMATOLOGY [place], [place] [address] (Wo rk) documented as of this encounter Visit Diagnoses Not on filedocumented in this encounter Care Teams Glued Wood Tester Relationship Specialty Start Date End Date Suhas Chowdhury MD PCP - General 06/16/10 05/19/11 [address] [place] [address] documented as of this encounter
--- OUTSIDE RECORDS SUMMARY | 2022-06-16 12:37 | XMS_ITS | Encounter Summary ---
:1955 Author Organization [facility] [place] [address] Care Team Providers Name Role Phone Suhas Chowdhury MD Primary Care Provider Reason for Visit Reason Comments Right Foot Pain mall right /left amp.dm Encounter Details Date Type Department Care Team Description 02/16/2011 Follow-Up Orthopaedics [place] [facility] [place] FOSTER Diabetes mellitus with neuro mendy; [facility] Narayan Roy Jr., MD [facility] [place] [address] Charcot's arthropathy, diabetic, [place] [address] Social History Tobacco Use Types Packs/Day [...] using supportive socks. He is using a [place]ARL[place] walker boot that has been conformed for [...] order to improve his braceability in his [place]ARL[place] walker boot. I think this is contributing deforming force that might help him avoid further ulceration. He does have pulses intact. His hemoglobin A1c will be obtained tomorrow, last was 8. His blood sugar today was 223, but he says that is within his normal range. We will set him up to come back in a week for cast change and wound check. [id number] ulcer treated with bactroban and mepilex post [...] Rojas MD [facility] Neurology [place], [place] [phone] (Wo rk) 06/29/2022 Appointment Cardiology Violetta Sanford M D [facility] [address] [place] [address] (Wo rk) 06/30/2022 Infusion Hematology and Oncology 07/14/2022 Infusion Hematology and Oncology 07/28/2022 Infusion Hematology and Oncology 08/11/2022 Infusion Hematology and Oncology 08/16/2022 Office Visit Audiology Mindy Moody AUD [facility] AUDIOLOGY [place], [place] [address] (Wo rk) 11/04/2022 Office Visit Rheumatology Dante Freedman PA [facility] RHEUMATOLOGY [place], [place] [address] (Wo rk) documented as of this encounter Visit Diagnoses Diagnosis Charcot's arthropathy, diabetic, R Type II or unspecified type diabetes fredo litus with neurological manifestations, not stated as uncontrolled documented in this encounter Care Teams Locker Operator Relationship Specialty Start Date End Date Suhas Chowdhury MD PCP - General 06/16/10 05/19/[address] [place], [place] [address] documented as of this encounter
--- OUTSIDE RECORDS SUMMARY | 2022-06-16 12:37 | XMS_ITS | Encounter Summary ---
:1955 Author Organization [facility] [place] [address] Care Team Providers Name Role Phone Suhas Chowdhury MD Primary Care Provider Reason for Visit Reason Comments Right Leg Pain diabetes mellitus / charcot foot Encounter Details Date Type Department Care Team Description 01/19/2011 [place] [facility] [place] [facility] [place] FOSTER Venous stasis ulcers [facility] Giovana kolbhansel (Primary Dx) [place] [address] Social History Tobacco Use Types Packs/Day [...] Tyler Rojas MD [facility] Neurology [place], [place] [phone] (Wo rk) 06/29/2022 Appointment Cardiology Violetta Sanford M D [address] [address] (Wo rk) 06/30/2022 Infusion Hematology and Oncology 07/14/2022 Infusion Hematology and Oncology 07/28/2022 Infusion Hematology and Oncology 08/11/2022 Infusion Hematology and Oncology 08/16/2022 Office Visit Audiology Mindy Moody AUD [facility] [place] [place] [address] (Wo rk) 11/04/2022 Office Visit Rheumatology Dante Freedman PA [facility] RHEUMATOLOGY [place], [place] [address] (Wo rk) documented as of this encounter Visit Diagnoses Diagnosis Venous stasis ulcers - Primary Varicose veins of lower extremities with ulcer documented in this encounter Care Teams Endoscopic Technician Relationship Specialty Start Date End Date Suhas Chowdhury MD PCP - General 06/16/10 05/19/[address] [place] [address] documented as of this encounter
--- OUTSIDE RECORDS SUMMARY | 2022-06-16 12:37 | XMS_ITS | Encounter Summary ---
:1955 Author Organization [facility] [place] [address] Care Team Providers Name Role Phone Suhas Chowdhury MD Primary Care Provider Reason for Visit Reason Comments Foot Ulcer medial malleolous Encounter Details Date Type Department Care Team Description 02/22/2011 Follow-Up Orthopaedics at [facility], DR FOSTER Diabetes mellitus with neuro mendy; [facility] Giovana tyler Charcot's arthropathy, diabe tatiana, R; [place] [address] Wound [phone] Social History Tobacco Use Types Packs/Day Years [...] cast back on. He will bring his [place] walker boot in at that visit for an assessment. documented in this encounter Plan of Treatment Upcoming Encounters Date Type Specialty Care Team Description 06/16/2022 Infusion Hematology and Oncology 06/21/2022 Office Visit Neurology Tyler Rojas MD [facility] Neurology [place], [place] [phone] (Wo rk) 06/29/2022 Appointment Cardiology Violetta Sanford M D [facility] [address] [place] [address] (Wo rk) 06/30/2022 Infusion Hematology and Oncology 07/14/2022 Infusion Hematology and Oncology 07/28/2022 Infusion Hematology and Oncology 08/11/2022 Infusion Hematology and Oncology 08/16/2022 Office Visit Audiology Mindy Moody AUD [facility] AUDIOLOGY DEPT [place], [place] [address] (Wo gregg) 11/04/2022 Office Visit Rheumatology Dante Freedman PA [facility] RHEUMATOLOGY [place], [place] [address] (Oscar escobedo) documented as of this encounter Visit Diagnoses Diagnosis Charcot's arthropathy, diabetic, R Type II or unspecified type diabetes fredo litus with neurological manifestations, not stated as uncontrolled Wound Injury, other and unspecified, unspecifi ed site documented in this encounter Care Teams Test Evaluator Relationship Specialty Start Date End Date Suhas Chowdhury MD PCP - General 06/16/10 05/19/[address] [place] [address] documented as of this encounter
--- OUTSIDE RECORDS SUMMARY | 2022-06-16 12:37 | XMS_ITS | Encounter Summary ---
:1955 Author Organization [facility] [place] [address] Care Team Providers Name Role Phone Suhas Chowdhury MD Primary Care Provider Reason for Visit Reason Comments Diabetes Encounter Details Date Type Department Care Team Description 02/17/2011 Office Visit Endocrinology at [facility] C Margaret Sawyer, Diabetes (Primary Dx) [place] [address] CENTER [phone] ENDOCRINOLOGY DEPT. [place], [place] [address] Social History Tobacco Use Types [...] able to follow the recommendations made by DLAE HAMMOND. Will consider changing insulin regimen to basal bolus at next office visit if not able to lower hemoglobin A1c close to 7.0%. Encouraged the patient to aim for glucose levels < 110 before breakfast and evening meal to facilitate healing of ulcer. The patient states he has been having some trouble sleeping because he coughs when he lies down and he takes [id number] sugar-free Robitussin for the cough. Advised that [...] Rojas MD [facility] Neurology [place], [place] [phone] ( gregg) 06/29/2022 Appointment Cardiology Violetta Sanford M D [address] [place] [address] ( gregg) 06/30/2022 Infusion Hematology and Oncology 07/14/2022 Infusion Hematology and Oncology 07/28/2022 Infusion Hematology and Oncology 08/11/2022 Infusion Hematology and Oncology 08/16/2022 Office Visit Audiology Mindy Moody AUD [facility] AUDIOLOGY DEPT [place], [place] [address] ( gregg) 11/04/2022 Office Visit Rheumatology Dante Freedman PA [facility] RHEUMATOLOGY [place], [place] [address] ( gregg) documented as of [...] Signature Chol, Total 117 <=199 mg/dL [facility] Comment: Recommendations of the NCEP Adult Treatm ent Panel for the following risk cutoff thresholds for the [place] populatio n: Desirable: <200 mg/dL Borderline High: 200-239 mg/dL High: > or = 240 mg/dL HDL 22 (L) >=40 mg/dL HOLLI MÉNDEZ Comment: Reference range: ??Low HDL: ?? < 40 mg/dL ??Normal: ?40-60 mg/dL ??Desirable: > 60 mg/dL SERENA 2001; 285(19):5759-9282 Chol/HDL Ratio 5.3 ratio HOLLI IVEY [facility] Comment: A Cholesterol to HDL ratio below 4:1 is desirable. ??Studies suggest that increased CAD risk occurs at ratios abov e 5 for females and above 6 for men. ? [place] Heart Association ??(htt p://www.americanheart.org) ? [place] Int Med, 1994; 121:641 ? AM J Med, 1998; 105(1A):48S Specimen Anatomical Collection Method Collection Time Receive d Time (Source) Location / / Volume Laterality Blood specimen 11/08/2011 9:21 AM 012 9:21 (specimen) EDT AM EDT Resulting Agency Comment Spec In Lab Donell Hernandez MD CHEMISTRY ORDERABLES Performing Organization Address City/State/[place] [address] HOLLI RNDOMN LDL cholesterol, direct (11/08/2011 9:21 AM EDT) P athologist Signature LDL Chol 67 <=99 mg/dL CERNER Direct [facility] Comment: The National Cholesterol Education Progr am (NCEP) has set the following guidelines for LDL Cholesterol: Reference range: ?? Optimal: ?<100 mg/dL ?? Near Optimal/Above Optimal: ?? 100-1 29 mg/dL ?? Borderline high: ?130-159 mg/dL ?? High: ? 160-189 mg/dL ?? Very high: ?>zx=144 mg/dL SERENA 2001: 285(19):6682-0598 Specimen Anatomical Collection Method Collection Time Receive d Time (Source) Location / / Volume Laterality Blood specimen 11/08/2011 9:21 AM 012 9:21 (specimen) EDT AM EDT Resulting Agency Comment Spec In Lab Donell Hernandez MD CHEMISTRY ORDERABLES Performing Organization Address City/State/ZIP Code Phon e Number [place] [phone] [facility] (ABNORMAL) Vitamin D 25 hydroxy (11/08/2011 9:21 AM EDT) athologist Signature 25-OH Vit D 21 (L) 30 - 100 CERNER Total ng/mL [facility] Comment: Deficient <10 ng/mL Insufficient 10 [...] of 08/31/2011 the Vitamin D Total, 25 [place] xy assays are being analyzed by the [facility] Chemistry Laboratory. ??There is NO CHANGE in units. ??Please contact the chemistry laboratory at [phone] with martha garzanigel. Specimen Anatomical Collection Method Collection Time Receive d Time (Source) Location / / Volume Laterality Blood specimen 11/08/2011 9:21 AM 012 9:21 (specimen) EDT AM EDT Resulting Agency Comment Spec In Lab Donell Hernandez MD CHEMISTRY ORDERABLES Performing Organization Address City/State/[place] [address] CERNER [facility] (ABNORMAL) Hemoglobin [...] into estimated average glucose values. ??Diabetes Care 2008:31(8):0560-9752. Specimen Anatomical Collection Method Collection Time Receive d Time (Source) Location / / Volume Laterality Blood specimen 02/17/2011 11:36 1 (specimen) AM EDT 11:50 AM EDT Donell Hernandez MD CHEMISTRY ORDERABLES Performing Organization Address City/State/[place] [address] CERNER MILLENNIUM (ABNORMAL) Basic [...] CHEMISTRY ORDERABLES Performing Organization Address City/Special Care Hospital/[facility] Code Phon e Number [address] [facility] TSH (02/17/2011 11:36 AM EDT) P athologist Signature TSH 2.28 0.27 - 4.20 CERNER mcIU/mL [facility] Specimen Anatomical Collection Method Collection Time Receive d Time (Source) Location / / Volume Laterality Blood specimen 02/17/2011 11:36 1 (specimen) AM EDT 11:50 AM EDT Donell Hernandez MD CHEMISTRY ORDERABLES Performing Organization Address City/Special Care [facility]/ZIP Code Phon e Number [address] LABOR[address]ORY [facility] documented in this encounter Visit Diagnoses Diagnosis Diabetes - Primary Type II or unspecified type diabetes fredo litus without mention of complication, not stated as uncontrolled documented in this encounter Care Teams Supervisor Tank House Relationship Specialty Start Date End Date Suhas Chowdhury MD PCP - General 06/16/10 05/19/[address] [place] [address] documented as of this encounter
--- OUTSIDE RECORDS SUMMARY | 2022-06-16 12:37 | XMS_ITS | Encounter Summary ---
:1955 Author Organization [facility] [place] [address] Care Team Providers Name Role Phone Suhas Chowdhury MD Primary Care Provider Encounter Details Date Type Department Care Team Description 09/09/2010 Office Visit Endocrinology at [facility] Margaret Ahuja, [facility] [place] [address] [facility] [phone] ENDOCRINOLOGY [place], [place] [address] (Wo rk) Social History Tobacco Use Types Packs/Day Years Used Date Smoking Tobacco: Never Assessed Sex Assigned at Date Recorded Not on file documented as of this encounter Plan of Treatment Upcoming Encounters Date Type Specialty Care Team Description 06/16/2022 Infusion Hematology and Oncology 06/21/2022 Office Visit Neurology Tyler Rojas MD [facility] Neurology [place], [place] [phone] (Wo rk) 06/29/2022 Appointment Cardiology Violetta Sanford M D [address] [place] [address] (Wo rk) 06/30/2022 Infusion Hematology and Oncology 07/14/2022 Infusion Hematology and Oncology 07/28/2022 Infusion Hematology and Oncology 08/11/2022 Infusion Hematology and Oncology 08/16/2022 Office Visit Audiology Mindy Moody, [facility] AUDIOLOGY DEPT [place], [place] [address] (Wo rk) 11/04/2022 Office Visit Rheumatology Dante Freedmna PA [facility] RHEUMATOLOGY [place], [place] [address] (Wo rk) documented as of this encounter Procedures Procedure Name Priority Date/Time Associated Diagnosis Comme nts HEMOGLOBIN A1C Routine 09/09/2010 12:56 PM Result s for this EST procedure are i n the results section . documented in this encounter Results (ABNORMAL) HEMOGLOBIN A1C (09/09/2010 12:56 PM EST) Analysis Performed At [facility] Time Signature Hemoglobin A1C 7.9 (H) 4.3 - 6.1 CERNER % MILLENNIUM Est Avg Gluc 180 mg/dL CERNER MILLENNIUM Comment: eAG equivalents for [...] into estimated average glucose values. ??Diabetes Care 2008:31(8):9185-6252. Specimen Anatomical Collection Method Collection Time Receive d Time (Source) Location / / Volume Laterality Blood specimen 09/09/2010 12:56 1 1:09 (specimen) PM EST PM EST Margaretangélica Sawyer [facility] CHEMISTRY ORDERABLES Performing Organization Address City/State/ZIP Code Phon e Number [address] [facility] documented in this encounter Visit Diagnoses Not on filedocumented in this encounter Care Teams International Trade Manager Relationship Specialty Start Date End Date Suhas Chowdhury MD PCP - General 06/16/10 05/19/[address] [place] [address] documented as of this encounter
--- OUTSIDE RECORDS SUMMARY | 2022-06-16 12:37 | XMS_ITS | Encounter Summary ---
:1955 Author Organization [facility] [place] [address] Care Team Providers Name Role Phone Suhas Chowdhury MD Primary Care Provider Encounter Details Date Type Department Care Team Description 10/20/2010 Follow-Up Orthopaedics at [facility] [place] [address] Social History Tobacco Use Types Packs/Day Years Used Date Smoking Tobacco: Never Assessed Sex Assigned at Date Recorded Not on file documented as of this encounter Plan of Treatment Upcoming Encounters Date Type Specialty Care Team Description 06/16/2022 Infusion Hematology and Oncology 06/21/2022 Office Visit Neurology Tyler Rojas MD [facility] Neurology [place], [place] [phone] (Wo rk) 06/29/2022 Appointment Cardiology Violetta Sanford M D [address] [place] [address] (Wo rk) 06/30/2022 Infusion Hematology and Oncology 07/14/2022 Infusion Hematology and Oncology 07/28/2022 Infusion Hematology and Oncology 08/11/2022 Infusion Hematology and Oncology 08/16/2022 Office Visit Audiology Mindy Moody AUD [facility] AUDIOLOGY [place], [place] [address] (Oscar rk) 11/04/2022 Office Visit Rheumatology Dante Freedman PA [facility] RHEUMATOLOGY [place], [place] [address] (Wo rk) documented as of this encounter Visit Diagnoses Not on filedocumented in this encounter Care Teams Nylon Winder Relationship Specialty Start Date End Date Suhas Chowdhury MD PCP - General 06/16/10 05/19/[address] [place] [address] documented as of this encounter
--- OUTSIDE RECORDS SUMMARY | 2022-06-16 12:37 | XMS_ITS | Encounter Summary ---
:1955 Author Organization [facility] [address] Care Team Providers Name Role Phone Suhas Chowdhury MD Primary Care Provider Encounter Details Date Type Department Care Team Description 07/21/2010 Office Visit Endocrinology at [facility] Margaret Ahuja, [facility] [place] [address] [facility] [phone] ENDOCR[place]OLOGY [place], [place] [address] (Wo rk) Social History Tobacco Use Types Packs/Day Years Used Date Smoking Tobacco: Never Assessed Sex Assigned at Date Recorded Not on file documented as of this encounter Plan of Treatment Upcoming Encounters Date Type Specialty Care Team Description 06/16/2022 Infusion Hematology and Oncology 06/21/2022 Office Visit Neurology Tyler Rojas MD [facility] Neurology [place], [place] [phone] (Wo rk) 06/29/2022 Appointment Cardiology Violetta Sanford M D [address] [place] [address] (Wo rk) 06/30/2022 Infusion Hematology and Oncology 07/14/2022 Infusion Hematology and Oncology 07/28/2022 Infusion Hematology and Oncology 08/11/2022 Infusion Hematology and Oncology 08/16/2022 Office Visit Audiology Mindy Moody, [facility] AUDIOLOGY DEPT [place], [place] [address] (Wo rk) 11/04/2022 Office Visit Rheumatology Dante Freedman PA [facility] RHEUMATOLOGY [place], [place] [address] (Wo rk) documented as of this encounter Visit Diagnoses Not on filedocumented in this encounter Care Teams Heating And Cooling Technician Relationship Specialty Start Date End Date Suhas Chowdhury MD PCP - General 06/16/10 05/19/[address] [place] [address] documented as of this encounter
--- OUTSIDE RECORDS SUMMARY | 2022-06-16 12:37 | XMS_ITS | Encounter Summary ---
:1955 Author Organization [place] [address] Care Team Providers Name Role Phone Suhas Chowdhury MD Primary Care Provider Reason for Visit Reason Onset Date Comments Medication Refill 02/16/2011 Encounter Details Date Type Department Care Team Description 02/16/2011 Refill Solid Organ Transplant at [facility], HTN (hypertension); [facility] Hypercholesteremia [facility] [place] [address] TRANSPLANT SURGERY [phone] [place], [place] [address] (Oscar escobedo) Social History Tobacco [...] MD [facility] Dr Sofi [place], [place] [phone] (Wo rk) 06/29/2022 Appointment Cardiology Vioeltta Sanford M D [address] [place], [place] [id number] (Oscar rk) 06/30/2022 Infusion Hematology and Oncology 07/14/2022 Infusion Hematology and Oncology 07/28/2022 Infusion Hematology and Oncology 08/11/2022 Infusion Hematology and Oncology 08/16/2022 Office Visit Audiology Mindy Moody AUD [facility] AUDIOLOGY [place], [place] [address] (Wo rk) 11/04/2022 Office Visit Rheumatology Dante Freedman, PA [facility] RHEUMATOLOGY [place], [place] [address] (Wo rk) documented as of this encounter Visit Diagnoses Diagnosis HTN (hypertension) Unspecified essential hypertension Hypercholesteremia Pure hypercholesterolemia documented in this encounter Care Teams Relay Record Clerk Relationship Specialty Start Date End Date Suhas Chowdhury MD PCP - General 06/16/10 05/19/11 [address] [place] [address] documented as of this encounter
--- OUTSIDE RECORDS SUMMARY | 2022-06-16 12:37 | XMS_ITS | Encounter Summary ---
:1955 Author Organization [facility] [place] [address] Care Team Providers Name Role Phone Suhas Chowdhury MD Primary Care Provider Encounter Details Date Type Department Care Team Description 08/13/2010 Follow[place]Up Neurology at [facility] Angel Boyd MD [facility] [place] [address] NEUROLOGY DEPT. [phone] [place], [place] [address] (Wo rk) Social History Tobacco Use Types Packs/Day Years Used Date Smoking Tobacco: Never Assessed Sex Assigned at Date Recorded Not on file documented as of this encounter Plan of Treatment Upcoming Encounters Date Type Specialty Care Team Description 06/16/2022 Infusion Hematology and Oncology 06/21/2022 Office Visit Neurology Tyler Rojas MD [facility] Neurology [place], [place] [phone] (Wo rk) 06/29/2022 Appointment Cardiology Violetta Sanford M D [address] [place], [place] [address] (Wo rk) 06/30/2022 Infusion Hematology and Oncology 07/14/2022 Infusion Hematology and Oncology 07/28/2022 Infusion Hematology and Oncology 08/11/2022 Infusion Hematology and Oncology 08/16/2022 Office Visit Audiology Mindy Moody AUD [facility] AUDIOLOGY [place], [place] [address] (Wo rk) 11/04/2022 Office Visit Rheumatology Dante Freedman PA [facility] RHEUMATOLOGY [place], [place] [address] (Wo rk) documented as of this encounter Visit Diagnoses Not on filedocumented in this encounter Care Teams Wood Cabinetmaker Relationship Specialty Start Date End Date Suhas Chowdhury MD PCP - General 06/16/10 05/19/11 [address] [place] [address] documented as of this encounter
--- OUTSIDE RECORDS SUMMARY | 2022-06-16 12:37 | XMS_ITS | Encounter Summary ---
:1955 Author Organization [place] [address] Care Team Providers Name Role Phone Suhas Chowdhury MD Primary Care Provider Reason for Visit Reason Onset Date Comments Other 02/25/2011 MAP-arnold to pt Encounter Details Date Type Department Care Team Description 02/25/2011 Telephone Care Management Dina Pastor Other (MAP-arnold to pt) [place] [address] Social History Tobacco Use Types Packs/Day [...] I called to request the application from [employer] and sent the patient page to Mr. [...] Tyler Rojas MD [facility] Neurology [place], [place] [phone] (Wo rk) 06/29/2022 Appointment Cardiology Violetta Sanford M D [address] [place] [address] (Wo rk) 06/30/2022 Infusion Hematology and Oncology 07/14/2022 Infusion Hematology and Oncology 07/28/2022 Infusion Hematology and Oncology 08/11/2022 Infusion Hematology and Oncology 08/16/2022 Office Visit Audiology Mindy Moody AUD [facility] AUDIOLOGY [place], [place] [address] (Wo rk) 11/04/2022 Office Visit Rheumatology Dante Freedman PA [facility] RHEUMATOLOGY [place], [place] [address] (Wo rk) documented as of this encounter Visit Diagnoses Not on filedocumented in this encounter Care Teams Development Consultant Relationship Specialty Start Date End Date Suhas Chowdhury MD PCP - General 06/16/10 05/19/11 [address] [place], [place] [address] documented as of this encounter
[2022-06-16 13:00] LABS: Bilirubin Negative (Negative); Blood Negative (Negative); Clarity Clear (Clear); Glucose 100 mg/dL (Negative); Ketones Negative (Negative); Leukocyte Esterase Negative (Negative); Nitrite Negative (Negative); Specific Gravity 1.025 (1.005-1.025); Urobilinogen 0.2 EU/dL (Up TO 0.2)
[2022-06-16 13:00] LABS: Abs Immature Grans 0.02 10^3/uL (0.0-0.06); Absolute Basophil Count 0.03 10^3/uL (0.0-0.2); Absolute Eosinophil Count 0.33 10^3/uL (0.0-0.7); Absolute Lymphocyte Count 1.83 10^3/uL (1.2-3.4); Absolute Monocyte Count 0.61 10^3/uL (0.1-0.8); Absolute Neutrophil Count 2.96 10^3/uL (1.2-6.7); Basophils % 0.5; Eosinophils % 5.7; HCT 30.1 % (40.0-50.0); HGB 9.2 g/dL (13.5-17.5); Immature Grans % 0.3; Lymphocytes % 31.7; MCH 29.7 pg (27.0-33.0); MCHC 30.6 % (32.0-36.0); MCV 97 fL (80-95); MPV 8.7 fL (8.0-11.0); Monocytes % 10.6; Neutrophils % 51.2; Platelet Count 170 10^3/uL (130-400); RDW 14.8 % (11.8-14.1); WBC 5.78 10^3/uL (4.4-10.8)
[2022-06-16 13:06] LABS: Bacteria Negative HPF (Negative); C & S Indicated? No; Casts 0-2 Hyaline LPF (Negative); Crystals Negative HPF (Negative); Epithelial Cells Rare HPF (Negative); Mucus Negative (Negative); RBC Negative HPF (0-2); WBC Negative HPF (0-5)
[2022-06-16 13:14] LABS: ALT 18 U/L (16-63); AST 14 U/L (15-37); Albumin 2.7 g/dL (3.4-5.0); Alkaline Phosphatase 122 U/L (46-116); Anion Gap 7.3 mmol/L (3-11); BUN 45 mg/dL (7-18); Bilirubin, Total 0.4 mg/dL (0.2-1.0); CO2 22.7 mmol/L (21.0-32.0); Calcium 8.7 mg/dL (8.5-10.1); Chloride 109 mmol/L (98-107); Estimated GFR 14.15 (mL/min/1.73m2); Glucose 124 mg/dL (74-106); Magnesium 1.5 mg/dL (1.8-2.4); PHOSPHORUS 4.3 mg/dL (2.6-4.7); Sodium 139 mmol/L (136-145); Total Protein 7.2 g/dL (6.4-8.2); Uric Acid 7.3 mg/dL (3.5-7.2)
[2022-06-16 13:20] LABS: CREATININE 4.3 mg/dL (0.70-1.30)
[2022-06-16 13:21] LABS: COMMENT (LAB VIEW ONLY) 72.17 mg/dL; PROTEIN 335.9 mg/dL; Prot/Crea Ur Ratio 4.65
[2022-06-16 15:31] LABS: Cholesterol 109 mg/dL (<200)
[2022-06-17 13:01] LABS: Tacrolimus 4.9 ng/mL (See Note)
== END 2022-06-16 12:16 | disposition home or self-care (01) ==
LOC: LBO 12:17
PROVIDERS: Internal Medicine Nephrology; PCP Family Medicine; Visit Provider Internal Medicine Hematology & Oncology
DX: Z94.0 Kidney transplant status (principal); Z79.899 Other long term (current) drug therapy; Z29.8 Encounter for other specified prophylactic measures; N18.4 Chronic kidney disease, stage 4 (severe); D63.1 Anemia in chronic kidney disease; B37.81 Candidal esophagitis
CPT/HCPCS: 36415; 80053; 80061; 80197; 81003; 81015; 82465; 82565; 83735; 84100; 84156; 84550; 85025

== ENCOUNTER 2022-06-30 16:18 | Outpatient (CLI) | payer MEDICARE, OTHER, SELFPAY ==
[2022-06-30 14:52] LABS: Abs Immature Grans 0.02 10^3/uL (0.0-0.06); Absolute Basophil Count 0.04 10^3/uL (0.0-0.2); Absolute Eosinophil Count 0.32 10^3/uL (0.0-0.7); Absolute Lymphocyte Count 2.01 10^3/uL (1.2-3.4); Absolute Monocyte Count 0.86 10^3/uL (0.1-0.8); Absolute Neutrophil Count 5.46 10^3/uL (1.2-6.7); Basophils % 0.5; Eosinophils % 3.7; HCT 31.4 % (40.0-50.0); Immature Grans % 0.2; Lymphocytes % 23.1; MCHC 31.8 % (32.0-36.0); MCV 94 fL (80-95); Monocytes % 9.9; Neutrophils % 62.6; Platelet Count 171 10^3/uL (130-400); RBC 3.33 10^6/uL (4.36-5.78); RDW 14.7 % (11.8-14.1); Reticulocyte 2.5 % (0.5-2.4); WBC 8.71 10^3/uL (4.4-10.8)
[2022-06-30 15:17] LABS: ALT 14 U/L (16-63); AST 13 U/L (15-37); Albumin 2.8 g/dL (3.4-5.0); Alkaline Phosphatase 124 U/L (46-116); Anion Gap 10.3 mmol/L (3-11); BUN 41 mg/dL (7-18); Bilirubin, Total 0.3 mg/dL (0.2-1.0); CO2 21.7 mmol/L (21.0-32.0); Calcium 9.2 mg/dL (8.5-10.1); Chloride 108 mmol/L (98-107); Estimated GFR 16.42 (mL/min/1.73m2); Glucose 97 mg/dL (74-106); Magnesium 1.5 mg/dL (1.8-2.4); PHOSPHORUS 4.1 mg/dL (2.6-4.7); Potassium 4.5 mmol/L (3.5-5.1); Sodium 140 mmol/L (136-145); Total Protein 7.8 g/dL (6.4-8.2); Uric Acid 7.7 mg/dL (3.5-7.2)
[2022-06-30 15:45] LABS: COMMENT (LAB VIEW ONLY) 62.16 mg/dL; PROTEIN 405.3 mg/dL; Prot/Crea Ur Ratio 6.52
[2022-06-30 16:10] LABS: Bilirubin Negative (Negative); Blood Trace-intact (Negative); Clarity Sl Cloudy (Clear); Glucose 100 mg/dL (Negative); Ketones Negative (Negative); Leukocyte Esterase Trace (Negative); Nitrite Negative (Negative); Specific Gravity 1.025 (1.005-1.025); Urobilinogen 0.2 EU/dL (Up TO 0.2)
[2022-06-30 16:17] LABS: CREATININE 3.8 mg/dL (0.70-1.30)
[2022-06-30 16:33] LABS: Bacteria Moderate HPF (Negative); Epithelial Cells Few HPF (Negative)
[2022-06-30 16:34] LABS: C & S Indicated? Yes; Crystals Negative HPF (Negative); Mucus Negative (Negative)
[2022-06-30 17:11] LABS: Cholesterol 127 mg/dL (<200)
[2022-07-01 13:51] LABS: Tacrolimus 3.4 ng/mL (See Note)
== END 2022-06-30 16:19 | disposition home or self-care (01) ==
LOC: LBO 16:20
PROVIDERS: PCP Family Medicine; Visit Provider Internal Medicine Nephrology
DX: Z94.0 Kidney transplant status (principal)
CPT/HCPCS: 36415; 80053; 80197; 81003; 81015; 82465; 82565; 83735; 84100; 84156; 84550; 85025; 85045; 87086

== ENCOUNTER 2022-07-14 02:16 | Outpatient (CLI) | payer MEDICARE, OTHER, SELFPAY ==
[2022-07-14 11:13] LABS: Abs Immature Grans 0.02 10^3/uL (0.0-0.06); Absolute Basophil Count 0.06 10^3/uL (0.0-0.2); Absolute Eosinophil Count 0.34 10^3/uL (0.0-0.7); Absolute Lymphocyte Count 1.75 10^3/uL (1.2-3.4); Absolute Monocyte Count 0.54 10^3/uL (0.1-0.8); Absolute Neutrophil Count 4.27 10^3/uL (1.2-6.7); Basophils % 0.9; Eosinophils % 4.9; HCT 30.2 % (40.0-50.0); HGB 9.3 g/dL (13.5-17.5); Immature Grans % 0.3; Lymphocytes % 25.1; MCH 29.2 pg (27.0-33.0); MCHC 30.8 % (32.0-36.0); MCV 95 fL (80-95); MPV 8.2 fL (8.0-11.0); Monocytes % 7.7; Neutrophils % 61.1; Platelet Count 208 10^3/uL (130-400); RBC 3.18 10^6/uL (4.36-5.78); RDW 13.6 % (11.8-14.1); Reticulocyte 1.5 % (0.5-2.4); WBC 6.98 10^3/uL (4.4-10.8)
[2022-07-14 11:14] LABS: Bilirubin Negative (Negative); Blood Negative (Negative); Clarity Clear (Clear); Glucose 100 mg/dL (Negative); Ketones Negative (Negative); Leukocyte Esterase Negative (Negative); Nitrite Negative (Negative); Urobilinogen 0.2 EU/dL (Up TO 0.2); pH 5.5 (5-8)
[2022-07-14 11:22] LABS: Bacteria Negative HPF (Negative); C & S Indicated? No; Casts 0-2 Hyaline LPF (Negative); Crystals Negative HPF (Negative); Epithelial Cells Rare HPF (Negative); Mucus Negative (Negative); RBC Negative HPF (0-2); WBC Negative HPF (0-5)
[2022-07-14 11:30] LABS: ALT 20 U/L (16-63); AST 16 U/L (15-37); Albumin 2.6 g/dL (3.4-5.0); Alkaline Phosphatase 137 U/L (46-116); Anion Gap 7.1 mmol/L (3-11); BUN 50 mg/dL (7-18); Bilirubin, Total 0.3 mg/dL (0.2-1.0); CO2 22.9 mmol/L (21.0-32.0); Calcium 9.4 mg/dL (8.5-10.1); Chloride 108 mmol/L (98-107); Estimated GFR 15.91 (mL/min/1.73m2); Glucose 212 mg/dL (74-106); Magnesium 1.7 mg/dL (1.8-2.4); PHOSPHORUS 4.1 mg/dL (2.6-4.7); Potassium 4.6 mmol/L (3.5-5.1); Sodium 138 mmol/L (136-145); Total Protein 7.7 g/dL (6.4-8.2); Uric Acid 7.7 mg/dL (3.5-7.2)
[2022-07-14 11:47] LABS: CREATININE 3.9 mg/dL (0.70-1.30)
[2022-07-14 11:48] LABS: COMMENT (LAB VIEW ONLY) 69.83 mg/dL; PROTEIN 353.2 mg/dL; Prot/Crea Ur Ratio 5.05
[2022-07-14 12:11] LABS: Cholesterol 114 mg/dL (<200)
[2022-07-15 13:47] LABS: Tacrolimus <2.0 ng/mL (See Note)
== END 2022-07-14 02:17 | disposition home or self-care (01) ==
LOC: LBO 02:16
PROVIDERS: PCP Family Medicine; Visit Provider Internal Medicine Hematology & Oncology
DX: Z94.0 Kidney transplant status (principal); N18.4 Chronic kidney disease, stage 4 (severe); D63.1 Anemia in chronic kidney disease; Z79.899 Other long term (current) drug therapy; Z29.8 Encounter for other specified prophylactic measures
CPT/HCPCS: 36415; 80053; 80197; 81003; 81015; 82465; 82565; 83735; 84100; 84156; 84550; 85025; 85045

== ENCOUNTER → 2022-07-22 01:41 | Outpatient (CLI) | payer MEDICARE, OTHER, SELFPAY ==
--- NOTE | 2022-07-22 | DI.US_ITS ---
Exam(s) US RENAL EXAM: US RENAL CLINICAL HISTORY: H/O KIDNEY TRANSPLANT, Z94.0. TECHNIQUE: Rodriguez scale, color and spectral Doppler were used. COMPARISON: CT CT ABDOMEN PELVIS WO from 11/12/2018 FINDINGS: Limited exam due to patient body habitus. Renal size in cm: [place] kidneys atrophic. Renal transplant left pelvis measuring 13.2 cm in length. Perinephric collection or hydronephrosis. Echogenicity: Normal Hydronephrosis: No Cyst or mass: No Nephrolithiasis: No Bladder:Normal Prevoid vol: 322 Postvoid vol: 0 Prostate not seen. IMPRESSION: Unremarkable left pelvic renal transplant. DATA REPOSITORY:
== END ==
PROVIDERS: PCP Family Medicine; Visit Provider Family Medicine
DX: Z94.0 Kidney transplant status (principal)
CPT/HCPCS: 76770

== ENCOUNTER 2022-08-13 01:41 | Outpatient (CLI) | payer MEDICARE, OTHER, SELFPAY ==
[2022-08-13 10:46] LABS: Abs Immature Grans 0.01 10^3/uL (0.0-0.06); Absolute Basophil Count 0.05 10^3/uL (0.0-0.2); Absolute Eosinophil Count 0.31 10^3/uL (0.0-0.7); Absolute Lymphocyte Count 1.61 10^3/uL (1.2-3.4); Absolute Monocyte Count 0.53 10^3/uL (0.1-0.8); Absolute Neutrophil Count 3.61 10^3/uL (1.2-6.7); Basophils % 0.8; Eosinophils % 5.1; HCT 31.6 % (40.0-50.0); Immature Grans % 0.2; Lymphocytes % 26.3; MCH 30.4 pg (27.0-33.0); MCHC 31.6 % (32.0-36.0); MCV 96 fL (80-95); MPV 8.6 fL (8.0-11.0); Monocytes % 8.7; Neutrophils % 58.9; Platelet Count 167 10^3/uL (130-400); RBC 3.29 10^6/uL (4.36-5.78); RDW 14.5 % (11.8-14.1); RDW-SD 50.4 fL; Reticulocyte 2.5 % (0.5-2.4); WBC 6.12 10^3/uL (4.4-10.8)
[2022-08-13 10:52] LABS: Bilirubin Negative (Negative); Blood Negative (Negative); Clarity Clear (Clear); Glucose 100 mg/dL (Negative); Ketones Negative (Negative); Leukocyte Esterase Negative (Negative); Nitrite Negative (Negative); Urobilinogen 0.2 EU/dL (Up TO 0.2)
[2022-08-13 11:01] LABS: RBC 0-2 HPF (0-2); WBC 0-2 HPF (0-5)
[2022-08-13 11:02] LABS: Bacteria Few HPF (Negative); C & S Indicated? Yes; Casts Negative LPF (Negative); Crystals Negative HPF (Negative); Epithelial Cells Rare HPF (Negative); Mucus Negative (Negative)
[2022-08-13 11:04] LABS: Cholesterol 116 mg/dL (<200)
[2022-08-13 11:05] LABS: ALT 16 U/L (16-63); AST 15 U/L (15-37); Albumin 2.7 g/dL (3.4-5.0); Alkaline Phosphatase 141 U/L (46-116); Anion Gap 7.8 mmol/L (3-11); BUN 51 mg/dL (7-18); Bilirubin, Total 0.3 mg/dL (0.2-1.0); CO2 24.2 mmol/L (21.0-32.0); Calcium 9.3 mg/dL (8.5-10.1); Chloride 108 mmol/L (98-107); Estimated GFR 15.44 (mL/min/1.73m2); Glucose 204 mg/dL (74-106); Magnesium 1.7 mg/dL (1.8-2.4); PHOSPHORUS 3.7 mg/dL (2.6-4.7); Potassium 4.8 mmol/L (3.5-5.1); Sodium 140 mmol/L (136-145); Total Protein 7.4 g/dL (6.4-8.2); Uric Acid 7.5 mg/dL (3.5-7.2)
[2022-08-13 11:16] LABS: COMMENT (LAB VIEW ONLY) 60.48 mg/dL; PROTEIN 314.7 mg/dL
[2022-08-13 11:23] LABS: COMMENT (LAB VIEW ONLY) 62.69 mg/dL
[2022-08-13 11:55] LABS: Vitamin D 25 Total 20.1 ng/mL (30-100)
[2022-08-13 20:42] LABS: Parathyroid Hormone,Intact 48 pg/mL (19-88)
[2022-08-14 12:17] LABS: Tacrolimus 2.6 ng/mL (See Note)
== END 2022-08-13 01:42 | disposition home or self-care (01) ==
PROVIDERS: PCP Family Medicine; Visit Provider Internal Medicine Nephrology
DX: Z29.8 Encounter for other specified prophylactic measures (principal); D84.9 Immunodeficiency, unspecified; E21.3 Hyperparathyroidism, unspecified; Z94.0 Kidney transplant status
CPT/HCPCS: 36415; 80053; 82306; 87077; 80197; 81003; 81015; 82043; 82465; 82565; 82570; 83735; 83970; 84100; 84156; 84550; 85025; 85045; 87086; 87186

== ENCOUNTER 2022-08-25 04:36 | Outpatient (CLI) | payer MEDICARE, OTHER, SELFPAY ==
[2022-08-25 12:35] LABS: Abs Immature Grans 0.01 10^3/uL (0.0-0.06); Absolute Basophil Count 0.05 10^3/uL (0.0-0.2); Absolute Lymphocyte Count 1.96 10^3/uL (1.2-3.4); Absolute Monocyte Count 0.65 10^3/uL (0.1-0.8); Absolute Neutrophil Count 3.98 10^3/uL (1.2-6.7); Basophils % 0.7; Eosinophils % 4.3; HCT 32.4 % (40.0-50.0); HGB 10.2 g/dL (13.5-17.5); Immature Grans % 0.1; Lymphocytes % 28.2; MCH 30.1 pg (27.0-33.0); MCHC 31.5 % (32.0-36.0); MCV 96 fL (80-95); MPV 8.8 fL (8.0-11.0); Monocytes % 9.4; Neutrophils % 57.3; Platelet Count 195 10^3/uL (130-400); RBC 3.39 10^6/uL (4.36-5.78); RDW 14.3 % (11.8-14.1); RDW-SD 49.1 fL; Reticulocyte 2.4 % (0.5-2.4); WBC 6.95 10^3/uL (4.4-10.8)
[2022-08-25 12:36] LABS: Bilirubin Negative (Negative); Blood Trace-intact (Negative); Clarity Clear (Clear); Glucose 250 mg/dL (Negative); Ketones Negative (Negative); Leukocyte Esterase Negative (Negative); Nitrite Negative (Negative); Specific Gravity 1.025 (1.005-1.025); Urobilinogen 0.2 EU/dL (Up TO 0.2); pH 6.5 (5-8)
[2022-08-25 12:43] LABS: Bacteria Negative HPF (Negative); C & S Indicated? No; Casts 0-2 Hyaline LPF (Negative); Crystals Negative HPF (Negative); Epithelial Cells Rare HPF (Negative); Mucus Negative (Negative); RBC 0-2 HPF (0-2); WBC Negative HPF (0-5)
[2022-08-25 13:39] LABS: Cholesterol 129 mg/dL (<200)
[2022-08-25 13:42] LABS: ALT 18 U/L (16-63); AST 16 U/L (15-37); Albumin 2.8 g/dL (3.4-5.0); Alkaline Phosphatase 147 U/L (46-116); Anion Gap 7.4 mmol/L (3-11); BUN 49 mg/dL (7-18); Bilirubin, Total 0.3 mg/dL (0.2-1.0); CO2 26.6 mmol/L (21.0-32.0); Calcium 9.3 mg/dL (8.5-10.1); Chloride 107 mmol/L (98-107); Estimated GFR 13.77 (mL/min/1.73m2); Glucose 172 mg/dL (74-106); Magnesium 1.9 mg/dL (1.8-2.4); PHOSPHORUS 3.9 mg/dL (2.6-4.7); Potassium 4.9 mmol/L (3.5-5.1); Sodium 141 mmol/L (136-145); Total Protein 7.3 g/dL (6.4-8.2); Uric Acid 7.7 mg/dL (3.5-7.2)
[2022-08-25 13:47] LABS: CREATININE 4.4 mg/dL (0.70-1.30)
[2022-08-25 13:51] LABS: COMMENT (LAB VIEW ONLY) 68.51 mg/dL; Prot/Crea Ur Ratio 4.64
[2022-08-26 13:46] LABS: Tacrolimus 2.7 ng/mL (See Note)
== END 2022-08-25 04:37 | disposition home or self-care (01) ==
PROVIDERS: PCP Family Medicine; Visit Provider Internal Medicine Nephrology
DX: Z94.0 Kidney transplant status (principal); Z79.899 Other long term (current) drug therapy; Z29.8 Encounter for other specified prophylactic measures
CPT/HCPCS: 80053; 80197; 81003; 81015; 82465; 82565; 83735; 84100; 84156; 84550; 85025; 85045

== ENCOUNTER 2022-09-22 03:05 | Outpatient (CLI) | payer MEDICARE, OTHER, SELFPAY ==
[2022-09-22 09:51] LABS: Bilirubin Negative (Negative); Blood Trace-intact (Negative); Clarity Clear (Clear); Glucose 100 mg/dL (Negative); Ketones Negative (Negative); Leukocyte Esterase Negative (Negative); Nitrite Negative (Negative); Specific Gravity 1.025 (1.005-1.025); Urobilinogen 0.2 mg/dL (Up to 0.2)
[2022-09-22 10:01] LABS: Bacteria Few HPF (Negative); C & S Indicated? No; Casts Negative LPF (Negative); Crystals Negative HPF (Negative); Epithelial Cells Negative HPF (Negative); Mucus Trace (Negative); Other Cells Negative (Negative); WBC Negative HPF (0-5)
[2022-09-22 10:11] LABS: Abs Immature Grans 0.01 10^3/uL (0.0-0.06); Absolute Basophil Count 0.06 10^3/uL (0.0-0.2); Absolute Eosinophil Count 0.32 10^3/uL (0.0-0.7); Absolute Lymphocyte Count 1.93 10^3/uL (1.2-3.4); Absolute Monocyte Count 0.63 10^3/uL (0.1-0.8); Absolute Neutrophil Count 4.21 10^3/uL (1.2-6.7); Basophils % 0.8; Eosinophils % 4.5; HCT 32.5 % (40.0-50.0); HGB 10.2 g/dL (13.5-17.5); Immature Grans % 0.1; MCH 30.4 pg (27.0-33.0); MCHC 31.4 % (32.0-36.0); MCV 97 fL (80-95); MPV 8.4 fL (8.0-11.0); Monocytes % 8.8; Neutrophils % 58.8; Platelet Count 206 10^3/uL (130-400); RBC 3.35 10^6/uL (4.36-5.78); WBC 7.16 10^3/uL (4.4-10.8)
[2022-09-22 10:15] LABS: Hemoglobin A1C 6.4 % (<5.7)
[2022-09-22 10:24] LABS: COMMENT (LAB VIEW ONLY) 62.47 mg/dL; PROTEIN 370.1 mg/dL; Prot/Crea Ur Ratio 5.92
[2022-09-22 10:26] LABS: Cholesterol 129 mg/dL (<200); LDL CHOLESTEROL 65 mg/dL (<100)
[2022-09-22 10:36] LABS: ALT 19 U/L (16-63); AST 14 U/L (15-37); Albumin 2.7 g/dL (3.4-5.0); Alkaline Phosphatase 125 U/L (46-116); Anion Gap 6.8 mmol/L (3-11); BUN 39 mg/dL (7-18); Bilirubin, Total 0.3 mg/dL (0.2-1.0); CO2 27.2 mmol/L (21.0-32.0); Calcium 9.3 mg/dL (8.5-10.1); Chloride 106 mmol/L (98-107); FREE T4 0.77 ng/dL (0.76-1.46); Glucose 198 mg/dL (74-106); Magnesium 1.6 mg/dL (1.8-2.4); PHOSPHORUS 3.6 mg/dL (2.6-4.7); Potassium 4.8 mmol/L (3.5-5.1); Sodium 140 mmol/L (136-145); TSH 2.45 uIU/mL (0.36-3.74); Total Protein 7.5 g/dL (6.4-8.2); Uric Acid 7.1 mg/dL (3.5-7.2)
[2022-09-22 10:43] LABS: CREATININE 4.5 mg/dL (0.70-1.30)
[2022-09-22 11:03] LABS: Iron 54 ug/dL (65-175); Total Iron Binding Capacity 189 ug/dL (250-450); Transferrin Sat 29 % (20-55)
[2022-09-22 11:09] LABS: Ferritin 104 ng/mL (26-388)
[2022-09-23 12:34] LABS: Tacrolimus 2.7 ng/mL (See Note)
== END 2022-09-22 03:06 | disposition home or self-care (01) ==
PROVIDERS: Internal Medicine Nephrology; PCP Family Medicine; Visit Provider Internal Medicine Endocrinology, Diabetes & Metabolism
DX: Z94.0 Kidney transplant status (principal); N18.4 Chronic kidney disease, stage 4 (severe); D63.1 Anemia in chronic kidney disease; E11.65 Type 2 diabetes mellitus with hyperglycemia
CPT/HCPCS: 36415; 80053; 83721; 80197; 81003; 81015; 82465; 82565; 82728; 83036; 83540; 83550; 83735; 84100; 84156; 84439; 84443; 84550; 85025; 85045

== ENCOUNTER 2022-10-13 03:16 | Outpatient (CLI) | payer MEDICARE, OTHER, SELFPAY ==
[2022-10-13 11:23] LABS: Abs Immature Grans 0.01 10^3/uL (0.0-0.06); Absolute Basophil Count 0.06 10^3/uL (0.0-0.2); Absolute Eosinophil Count 0.29 10^3/uL (0.0-0.7); Absolute Monocyte Count 0.52 10^3/uL (0.1-0.8); Absolute Neutrophil Count 4.09 10^3/uL (1.2-6.7); Basophils % 0.9; Eosinophils % 4.3; HCT 32.1 % (40.0-50.0); HGB 10.3 g/dL (13.5-17.5); Immature Grans % 0.1; Lymphocytes % 25.5; MCH 30.7 pg (27.0-33.0); MCHC 32.1 % (32.0-36.0); MCV 96 fL (80-95); MPV 8.4 fL (8.0-11.0); Monocytes % 7.8; Neutrophils % 61.4; Platelet Count 189 10^3/uL (130-400); RBC 3.35 10^6/uL (4.36-5.78); RDW 14.1 % (11.8-14.1); RDW-SD 48.7 fL; WBC 6.67 10^3/uL (4.4-10.8)
[2022-10-13 11:41] LABS: Hemoglobin A1C 6.9 % (<5.7)
[2022-10-13 11:45] LABS: Bilirubin Negative (Negative); Blood Trace-intact (Negative); Clarity Sl Cloudy (Clear); Glucose 250 mg/dL (Negative); Ketones Negative (Negative); Leukocyte Esterase Negative (Negative); Nitrite Negative (Negative); Specific Gravity 1.025 (1.005-1.025); Urobilinogen 0.2 mg/dL (Up to 0.2); pH 6.5 (5-8)
[2022-10-13 11:58] LABS: Bacteria Rare HPF (Negative); C & S Indicated? No; Casts Negative LPF (Negative); Crystals Negative HPF (Negative); Epithelial Cells Negative HPF (Negative); Mucus Trace (Negative); WBC 0-2 HPF (0-5)
[2022-10-13 12:19] LABS: COMMENT (LAB VIEW ONLY) 67.56 mg/dL; PROTEIN 319.2 mg/dL; Prot/Crea Ur Ratio 4.72
[2022-10-13 12:22] LABS: Cholesterol 116 mg/dL (<200)
[2022-10-13 12:30] LABS: Iron 68 ug/dL (65-175); Total Iron Binding Capacity 165 ug/dL (250-450); Transferrin Sat 41 % (20-55)
[2022-10-13 12:43] LABS: ALT 17 U/L (16-63); AST 12 U/L (15-37); Albumin 2.7 g/dL (3.4-5.0); Alkaline Phosphatase 133 U/L (46-116); Anion Gap 6.7 mmol/L (3-11); BUN 49 mg/dL (7-18); Bilirubin, Total 0.2 mg/dL (0.2-1.0); CO2 27.3 mmol/L (21.0-32.0); Calcium 9.9 mg/dL (8.5-10.1); Chloride 105 mmol/L (98-107); Ferritin 93 ng/mL (26-388); Glucose 264 mg/dL (74-106); Magnesium 1.8 mg/dL (1.8-2.4); Potassium 4.4 mmol/L (3.5-5.1); Sodium 139 mmol/L (136-145); Total Protein 7.4 g/dL (6.4-8.2)
[2022-10-13 12:50] LABS: CREATININE 4.8 mg/dL (0.70-1.30)
[2022-10-13 13:00] LABS: PHOSPHORUS 3.8 mg/dL (2.6-4.7); Uric Acid 7.2 mg/dL (3.5-7.2)
== END 2022-10-13 03:17 | disposition home or self-care (01) ==
PROVIDERS: Internal Medicine Nephrology; PCP Family Medicine; Visit Provider Internal Medicine Hematology & Oncology
DX: E11.65 Type 2 diabetes mellitus with hyperglycemia (principal); Z94.0 Kidney transplant status; Z79.899 Other long term (current) drug therapy; Z79.4 Long term (current) use of insulin; N18.4 Chronic kidney disease, stage 4 (severe); Z29.8 Encounter for other specified prophylactic measures
CPT/HCPCS: 36415; 80053; 80197; 81003; 81015; 82465; 82565; 82728; 83036; 83540; 83550; 83735; 84100; 84156; 84550; 85025; 85045

== ENCOUNTER 2022-11-17 02:53 | Outpatient (CLI) | payer MEDICARE, OTHER, SELFPAY ==
[2022-11-17 12:33] LABS: Abs Immature Grans 0.01 10^3/uL (0.0-0.06); Absolute Basophil Count 0.06 10^3/uL (0.0-0.2); Absolute Eosinophil Count 0.32 10^3/uL (0.0-0.7); Absolute Lymphocyte Count 1.94 10^3/uL (1.2-3.4); Absolute Neutrophil Count 4.33 10^3/uL (1.2-6.7); Basophils % 0.8; Eosinophils % 4.4; HCT 29.8 % (40.0-50.0); HGB 9.7 g/dL (13.5-17.5); Immature Grans % 0.1; Lymphocytes % 26.7; MCH 31.1 pg (27.0-33.0); MCHC 32.6 % (32.0-36.0); MCV 96 fL (80-95); MPV 8.6 fL (8.0-11.0); Monocytes % 8.3; Neutrophils % 59.7; Platelet Count 198 10^3/uL (130-400); RBC 3.12 10^6/uL (4.36-5.78); RDW 13.8 % (11.8-14.1); Reticulocyte 2.2 % (0.5-2.4); WBC 7.26 10^3/uL (4.4-10.8)
[2022-11-17 12:52] LABS: Bilirubin Negative (Negative); Blood Negative (Negative); Clarity Clear (Clear); Glucose 100 mg/dL (Negative); Ketones Negative (Negative); Leukocyte Esterase Negative (Negative); Nitrite Negative (Negative); Urobilinogen 0.2 mg/dL (Up to 0.2)
[2022-11-17 12:54] LABS: COMMENT (LAB VIEW ONLY) 71.99 mg/dL; PROTEIN 340.2 mg/dL; Prot/Crea Ur Ratio 4.72
[2022-11-17 13:00] LABS: ALT 16 U/L (16-63); AST 11 U/L (15-37); Albumin 2.7 g/dL (3.4-5.0); Alkaline Phosphatase 115 U/L (46-116); Anion Gap 5.1 mmol/L (3-11); BUN 43 mg/dL (7-18); Bilirubin, Total 0.3 mg/dL (0.2-1.0); CO2 28.9 mmol/L (21.0-32.0); Calcium 9.9 mg/dL (8.5-10.1); Chloride 105 mmol/L (98-107); Estimated GFR 12.72 (mL/min/1.73m2); Glucose 145 mg/dL (74-106); Magnesium 1.8 mg/dL (1.8-2.4); PHOSPHORUS 4.1 mg/dL (2.6-4.7); Potassium 4.3 mmol/L (3.5-5.1); Sodium 139 mmol/L (136-145); Total Protein 7.6 g/dL (6.4-8.2); Uric Acid 7.2 mg/dL (3.5-7.2)
[2022-11-17 13:02] LABS: Bacteria Negative HPF (Negative); C & S Indicated? No; Casts 0-2 Hyaline LPF (Negative); Crystals Negative HPF (Negative); Epithelial Cells Rare HPF (Negative); Mucus Negative (Negative); RBC 0-2 HPF (0-2); WBC 0-2 HPF (0-5)
[2022-11-17 13:06] LABS: CREATININE 4.7 mg/dL (0.70-1.30)
[2022-11-17 13:17] LABS: Iron 39 ug/dL (65-175); Total Iron Binding Capacity 179 ug/dL (250-450); Transferrin Sat 22 % (20-55)
[2022-11-17 13:29] LABS: Ferritin 132 ng/mL (26-388)
[2022-11-17 13:30] LABS: Cholesterol 113 mg/dL (<200)
[2022-11-18 15:25] LABS: Tacrolimus 4.3 ng/mL (See Note)
== END 2022-11-17 02:54 | disposition home or self-care (01) ==
LOC: LBO 02:53
PROVIDERS: PCP Family Medicine; Visit Provider Internal Medicine Hematology & Oncology
DX: E11.65 Type 2 diabetes mellitus with hyperglycemia (principal)
CPT/HCPCS: 36415; 80053; 80197; 81003; 81015; 82465; 82565; 82728; 83036; 83540; 83550; 83735; 84100; 84156; 84550; 85025; 85045

== ENCOUNTER 2022-12-15 05:19 | Outpatient (CLI) | payer MEDICARE, OTHER, SELFPAY ==
[2022-12-15 12:01] LABS: Bilirubin Negative (Negative); Blood Trace-intact (Negative); Clarity Clear (Clear); Glucose 250 mg/dL (Negative); Ketones Negative (Negative); Leukocyte Esterase Negative (Negative); Nitrite Negative (Negative); Specific Gravity 1.015 (1.005-1.025); Urobilinogen 0.2 mg/dL (Up to 0.2); pH 6.5 (5-8)
[2022-12-15 12:10] LABS: Hemoglobin A1C 6.3 % (<5.7)
[2022-12-15 12:15] LABS: Bacteria Rare HPF (Negative); C & S Indicated? Yes; Casts Negative LPF (Negative); Crystals Negative HPF (Negative); Epithelial Cells Negative HPF (Negative); Mucus Negative (Negative)
[2022-12-15 12:19] LABS: Abs Immature Grans 0.01 10^3/uL (0.0-0.06); Absolute Basophil Count 0.05 10^3/uL (0.0-0.2); Absolute Eosinophil Count 0.28 10^3/uL (0.0-0.7); Absolute Lymphocyte Count 1.92 10^3/uL (1.2-3.4); Absolute Neutrophil Count 4.49 10^3/uL (1.2-6.7); Basophils % 0.7; Eosinophils % 3.9; HCT 29.4 % (40.0-50.0); HGB 9.5 g/dL (13.5-17.5); Immature Grans % 0.1; Lymphocytes % 26.5; MCH 31.4 pg (27.0-33.0); MCHC 32.3 % (32.0-36.0); MCV 97 fL (80-95); MPV 8.6 fL (8.0-11.0); Monocytes % 6.9; Neutrophils % 61.9; Platelet Count 190 10^3/uL (130-400); RBC 3.03 10^6/uL (4.36-5.78); RDW 13.9 % (11.8-14.1); RDW-SD 48.9 fL; Reticulocyte 2.4 % (0.5-2.4); WBC 7.25 10^3/uL (4.4-10.8)
[2022-12-15 12:45] LABS: COMMENT (LAB VIEW ONLY) 63.32 mg/dL; PROTEIN 263.1 mg/dL; Prot/Crea Ur Ratio 4.15
[2022-12-15 12:50] LABS: ALT 14 U/L (16-63); AST 10 U/L (15-37); Albumin 2.9 g/dL (3.4-5.0); Alkaline Phosphatase 127 U/L (46-116); Anion Gap 8.3 mmol/L (3-11); BUN 62 mg/dL (7-18); Bilirubin, Total 0.3 mg/dL (0.2-1.0); CO2 26.7 mmol/L (21.0-32.0); Calcium 9.9 mg/dL (8.5-10.1); Chloride 105 mmol/L (98-107); Estimated GFR 10.53 (mL/min/1.73m2); Glucose 233 mg/dL (74-106); Magnesium 1.7 mg/dL (1.8-2.4); PHOSPHORUS 3.6 mg/dL (2.6-4.7); Potassium 4.4 mmol/L (3.5-5.1); Sodium 140 mmol/L (136-145); Total Protein 7.9 g/dL (6.4-8.2); Uric Acid 7.4 mg/dL (3.5-7.2)
[2022-12-15 12:57] LABS: CREATININE 5.5 mg/dL (0.70-1.30)
[2022-12-15 13:01] LABS: Iron 50 ug/dL (65-175); Total Iron Binding Capacity 189 ug/dL (250-450); Transferrin Sat 26 % (20-55)
[2022-12-15 13:02] LABS: Cholesterol 107 mg/dL (<200)
[2022-12-15 13:22] LABS: Ferritin 147 ng/mL (26-388)
[2022-12-16 13:20] LABS: Tacrolimus 2.5 ng/mL (See Note)
== END 2022-12-15 05:20 | disposition home or self-care (01) ==
LOC: LBO 05:19
PROVIDERS: PCP Family Medicine; Visit Provider Internal Medicine Nephrology
DX: E11.65 Type 2 diabetes mellitus with hyperglycemia (principal); Z94.0 Kidney transplant status; Z79.899 Other long term (current) drug therapy
CPT/HCPCS: 36415; 80053; 87077; 80197; 81003; 81015; 82465; 82565; 82728; 83036; 83540; 83550; 83735; 84100; 84156; 84550; 85025; 85045; 87086; 87186

== ENCOUNTER 2023-01-12 02:48 | Outpatient (CLI) | payer MEDICARE, OTHER, SELFPAY ==
[2023-01-12 11:15] LABS: Abs Immature Grans 0.02 10^3/uL (0.0-0.06); Absolute Basophil Count 0.04 10^3/uL (0.0-0.2); Absolute Lymphocyte Count 1.78 10^3/uL (1.2-3.4); Absolute Monocyte Count 0.55 10^3/uL (0.1-0.8); Absolute Neutrophil Count 4.14 10^3/uL (1.2-6.7); Basophils % 0.6; Eosinophils % 4.4; HCT 27.9 % (40.0-50.0); Immature Grans % 0.3; Lymphocytes % 26.1; MCH 31.1 pg (27.0-33.0); MCHC 32.3 % (32.0-36.0); MCV 97 fL (80-95); MPV 8.3 fL (8.0-11.0); Monocytes % 8.1; Neutrophils % 60.5; Platelet Count 173 10^3/uL (130-400); RBC 2.89 10^6/uL (4.36-5.78); RDW 13.7 % (11.8-14.1); RDW-SD 48.4 fL; WBC 6.83 10^3/uL (4.4-10.8)
[2023-01-12 11:16] LABS: Bilirubin Negative (Negative); Blood Negative (Negative); Clarity Clear (Clear); Glucose 500 mg/dL (Negative); Ketones Negative (Negative); Leukocyte Esterase Negative (Negative); Nitrite Negative (Negative); Urobilinogen 0.2 mg/dL (Up to 0.2)
[2023-01-12 11:24] LABS: Hemoglobin A1C 6.8 % (<5.7)
[2023-01-12 11:26] LABS: Epithelial Cells Rare HPF (Negative); RBC 0-2 HPF (0-2); WBC 0-2 HPF (0-5)
[2023-01-12 11:27] LABS: Bacteria Few HPF (Negative); C & S Indicated? Yes; Casts Negative LPF (Negative); Crystals Negative HPF (Negative); Mucus Trace (Negative)
[2023-01-12 11:35] LABS: COMMENT (LAB VIEW ONLY) 59.39 mg/dL; PROTEIN 302.8 mg/dL; Prot/Crea Ur Ratio 5.09
[2023-01-12 11:36] LABS: Cholesterol 99 mg/dL (<200)
[2023-01-12 11:38] LABS: ALT 15 U/L (16-63); AST 8 U/L (15-37); Albumin 2.8 g/dL (3.4-5.0); Alkaline Phosphatase 119 U/L (46-116); Anion Gap 5.8 mmol/L (3-11); BUN 53 mg/dL (7-18); Bilirubin, Total 0.3 mg/dL (0.2-1.0); CO2 28.2 mmol/L (21.0-32.0); Calcium 9.9 mg/dL (8.5-10.1); Chloride 102 mmol/L (98-107); Estimated GFR 11.01 (mL/min/1.73m2); Glucose 308 mg/dL (74-106); Magnesium 1.8 mg/dL (1.8-2.4); Potassium 4.5 mmol/L (3.5-5.1); Sodium 136 mmol/L (136-145); Total Protein 7.6 g/dL (6.4-8.2); Uric Acid 7.2 mg/dL (3.5-7.2)
[2023-01-12 11:43] LABS: CREATININE 5.3 mg/dL (0.70-1.30)
[2023-01-12 11:54] LABS: Iron 49 ug/dL (65-175); Total Iron Binding Capacity 186 ug/dL (250-450); Transferrin Sat 26 % (20-55)
[2023-01-12 12:12] LABS: Ferritin 162 ng/mL (26-388)
[2023-01-20 15:44] LABS: Tacrolimus 2.3 ng/ml (See Note)
== END 2023-01-12 02:49 | disposition home or self-care (01) ==
LOC: LBO 02:48
PROVIDERS: PCP Family Medicine; Visit Provider Internal Medicine Nephrology
DX: N18.4 Chronic kidney disease, stage 4 (severe) (principal); D63.1 Anemia in chronic kidney disease; Z94.0 Kidney transplant status; Z79.899 Other long term (current) drug therapy; E11.65 Type 2 diabetes mellitus with hyperglycemia; Z79.4 Long term (current) use of insulin; Z29.8 Encounter for other specified prophylactic measures
CPT/HCPCS: 36415; 80053; 87077; 80197; 81003; 81015; 82465; 82565; 82728; 83036; 83540; 83550; 83735; 84100; 84156; 84550; 85025; 87086; 87186

== ENCOUNTER 2023-01-15 10:56 | Observation (INO) | payer MEDICARE, OTHER, SELFPAY ==
[2023-01-15] VITALS (54 sets, daily range): BP systolic 117–183; BP diastolic 48–74; PULSE 55–82; RESP 10–21; TEMP 36.2–37.1; O2SAT 95–99
--- NOTE | 2023-01-15 10:45 | RT.EKG_ITS ---
APPROVED REPORT Exam: Resting ECG Reason for Exam: chest pain Patient Location: E HR:78 bpm ECG Measurements Heart Rate 78 AXIS ID [id number] P [id number] QRSd 162 QRS -66 QT 465 T 65 QTc 531 Conclusion Accelerated junctional rhythm...absent P waves, accele'd V-rate RBBB and LAFB...QRSd >120mS, axis(-40,240)
[2023-01-15 11:10] LABS: BE (Venous) 1 mmol/L (-2-3); HCO3 (Venous) 27 mmol/L (23-28); O2 Sat (Venous) 68 %; TCO2 (Venous) 26 mmol/L (24-29); pCO2 (Venous) 51 mmHg (41-51); pH (Venous) 7.33 (7.31-7.41); pO2 (Venous) 36 mmHg
[2023-01-15 11:12] LABS: Abs Immature Grans 0.03 10^3/uL (0.0-0.06); Absolute Basophil Count 0.01 10^3/uL (0.0-0.2); Absolute Eosinophil Count 0.15 10^3/uL (0.0-0.7); Absolute Monocyte Count 0.45 10^3/uL (0.1-0.8); Absolute Neutrophil Count 4.24 10^3/uL (1.2-6.7); Basophils % 0.2; Eosinophils % 2.4; HGB 9.4 g/dL (13.5-17.5); Immature Grans % 0.5; MCHC 32.4 % (32.0-36.0); MCV 96 fL (80-95); MPV 8.3 fL (8.0-11.0); Monocytes % 7.3; Neutrophils % 68.6; Platelet Count 179 10^3/uL (130-400); RBC 3.03 10^6/uL (4.36-5.78); RDW 13.6 % (11.8-14.1); RDW-SD 47.2 fL; WBC 6.18 10^3/uL (4.4-10.8)
--- NOTE | 2023-01-15 11:15 | DI.RAD_ITS ---
Exam(s) XR CHEST 2V PA LATERAL EXAM: XR CHEST 2V PA LATERAL CLINICAL HISTORY: chest pain TECHNIQUE: 2D digital imaging was performed. COMPARISON: CT CT CHEST WO from 11/29/2021 FINDINGS: HEART: Normal size. Mitral valvular calcification. Aorta: Not dilated. PULMONARY VASCULATURE: Normal. LUNGS: Clear. PLEURAL SPACE: No pleural effusion or pneumothorax. BONE:Unremarkable for age. IMPRESSION: No acute abnormality. DATA REPOSITORY: RADIATION DOSE DELIVERED:
--- NOTE | 2023-01-15 11:15 | DI.CT_ITS ---
Exam(s) CT HEAD WO EXAM: CT HEAD WO CLINICAL HISTORY: ams, dysphasia. TECHNIQUE: Imaging Protocol: Axial computed tomography images with coronal and sagittal reformatted images were created and reviewed COMPARISON: CT CT TEMPORAL BONE WO from 12/25/2021 FINDINGS: Ventricles and Extra axial spaces: Normal in size and morphology for the patient's age. Hemorrhage: None. Cerebral parenchyma: Normal for age. Midline shift: None. Brainstem/Cerebellum: Normal. Calvarium: Normal. Visualized Paranasal sinuses/Mastoids: Prior sinus surgery. Chronic mucous retention in the sphenoid sinuses. Fluid again noted inferior mastoid air cells. No bony erosions. Soft Tissues: Unremarkable. IMPRESSION: No acute intracranial process. RADIATION DOSE DELIVERED: 976.75mGy.cm Total DLP DATA REPOSITORY: All CT scans at this facility are submitted to the National Radiology Data Registry (NRDR) Dose Index Registry (DIR) with the [employer] (ACR). RADIATION OPTIMIZATION: All CT scans at this facility use at least one of these dose optimization te chniques: automated exposure control; mA and/or kV adjustment per patient size (includes targeted exa ms where dose is matched to clinical indication); or iterative reconstruction.
[2023-01-15 11:36] LABS: ALT 15 U/L (16-63); AST 8 U/L (15-37); Albumin 2.9 g/dL (3.4-5.0); Alkaline Phosphatase 124 U/L (46-116); Anion Gap 8.4 mmol/L (3-11); BUN 52 mg/dL (7-18); Bilirubin, Total 0.4 mg/dL (0.2-1.0); CO2 26.6 mmol/L (21.0-32.0); Calcium 9.8 mg/dL (8.5-10.1); Chloride 104 mmol/L (98-107); Estimated GFR 10.77 (mL/min/1.73m2); Glucose 327 mg/dL (74-106); Magnesium 1.7 mg/dL (1.8-2.4); Potassium 4.1 mmol/L (3.5-5.1); Sodium 139 mmol/L (136-145); TSH (W/Ref FT4) 2.44 uIU/mL (0.36-3.74); Total Protein 7.9 g/dL (6.4-8.2); Troponin I < 50 ng/L (<or=60)
[2023-01-15 11:38] LABS: CREATININE 5.4 mg/dL (0.70-1.30)
[2023-01-15 11:47] LABS: Bilirubin Negative (Negative); Blood Negative (Negative); Clarity Clear (Clear); Glucose 500 mg/dL (Negative); Ketones Negative (Negative); Leukocyte Esterase Negative (Negative); Nitrite Negative (Negative); Urobilinogen 0.2 mg/dL (Up to 0.2)
[2023-01-15 12:01] LABS: Bacteria Negative HPF (Negative); C & S Indicated? No; Casts Negative LPF (Negative); Crystals Negative HPF (Negative); Epithelial Cells Negative HPF (Negative); Mucus Trace (Negative); WBC 0-2 HPF (0-5)
[2023-01-15] MEDS: Lactated Ringers 500 ML IV (12:14)
--- NOTE | 2023-01-15 12:17 | DI.VRAD_ITS ---
PROCEDURE INFORMATION: Exam: CT Head Without Contrast Exam date and time: 01/15/2023 11:47 AM Age: 67 years old Clinical indication: Other: AMS, dysphasia TECHNIQUE: Imaging protocol: Computed tomography of the head without contrast. COMPARISON: CT TEMPORAL BONE WO 12/25/2021 7:50 AM FINDINGS: Brain: No evidence of acute infarct. No intraparenchymal hemorrhage. No midline shift or mass effect. No extra-axial fluid collections or hemorrhage. Cerebral ventricles: No ventriculomegaly. Paranasal sinuses: Again seen is opacification of the sphenoid sinus with small amount of mucus or fluid aspect right sphenoid sinus. Resection of the medial mobley of each maxillary sinus. The cribriform plate is within normal limits. The ethmoid air cells and frontal sinuses are unremarkable. Mastoid air cells: Visualized mastoid air cells are well aerated. Bones/joints: Unremarkable. No acute fracture. Soft tissues: Unremarkable. IMPRESSION: 1. No acute intracranial abnormality. 2. The area of the cribriform plate is unremarkable. 3. Previous sinus surgery. Longstanding opacification right sphenoid and lateral aspect of the left sphenoid sinus. Dictated and Authenticated by: Perez Ricketts MD. Ordering:ANNE Felton MD
--- NOTE | 2023-01-15 12:19 | DI.VRAD_ITS ---
PROCEDURE INFORMATION: Exam: XR Chest Exam date and time: 01/15/2023 11:55 AM Age: 67 years old Clinical indication: Other: AMS, dysphasia TECHNIQUE: Imaging protocol: Radiologic exam of the chest. Views: 2 views. COMPARISON: CT CHEST WO 11/29/2021 9:22 PM FINDINGS: Lungs: Unremarkable. No consolidation. Pleural spaces: Unremarkable. No pleural effusion. No pneumothorax. Heart/Mediastinum: Unremarkable. No cardiomegaly. Bones/joints: Unremarkable. IMPRESSION: No acute findings. Dictated and Authenticated by: Perez Ricketts MD. Ordering:ANNE Felton MD
--- NOTE | 2023-01-15 13:01 | W.ED.GENAD ---
Discharge Plan Discharge Details Chief Complaint: GenMedical Admit Date/Time: 01/15/23 14:11 Admit Provider: Alexander Lagos Attending Provider: Alexander Lagos Primary Care Provider: Violetta Sanford ED Provider: Purnima Brown Discharge Data Discharge Date/Time-TO BE ENTERED AT DEPARTURE: 01/15/23 15:55 Medical Decision Making This 67-year-old male presents with report of sudden onset of confusion, weakness, dysphagia, pallor, diaphoresis, chest discomfort started approximately 930 this morning. Denies history of similar symptoms in the past. Denies any palpitations EKG shows right bundle branch block and left fascicular block, new onset, initial troponin negative, repeat troponin pending CT head does not show evidence of acute abnormality, chest x-ray without acute abnormality Creatinine is baseline for patient at 5.4 Tacrolimus pending, urinalysis not show evidence of acute abnormality Patient will need admission for observation, at this time the cause of her symptoms is unclear, differentials include TIA, anginal symptoms, presyncope, dysrhythmia, low suspicion for pulmonary embolism, no hypoxia or tachypnea, no respiratory complaints at this time Has been asymptomatic since arrival in the emergency department Glucose is elevated at 349, no evidence of diabetic ketoacidosis, will give fluids and recheck with likely insulin administration case discussed with Dr Lagos, agreeable to admission Medical Records Medical records reviewed: Yes I reviewed the patient's medical records. HPI General Date/Time Provider Initiated Documentation: 01/15/23 10:56. HPI Narrative: This 67-year-old male presents with report of sudden onset of confusion, dysphagia, lethargy, pallor, diaphoresis and weakness with some chest pain that started at approximately 930 this morning. Symptoms all lasted approximately 30 minutes and then resolved completely. Denies any calf pain or swelling, denies any current chest pain or shortness of breath. History of coronary artery disease, denies prior stents. History of diabetes, chronic kidney disease, status post renal transplant 15 years ago on CellCept and tacrolimus, hypertension, hyperlipidemia tricuspid regurgitation. Family states that both hands were weak on initial assessment and that he was unable to speak. Patient states he felt like he almost passed out. Denies any new medications. Related Data Home Medications Medication Instructions Recorded Confirmed aspirin 81 mg tablet,delayed 81 mg PO DAILY 10/31/12 01/15/23 release ([place] Low Dose Aspirin) montelukast 10 mg tablet 10 mg PO DAILY 10/31/12 01/15/23 omeprazole 40 mg capsule,delayed 40 mg PO DAILY 10/31/12 01/15/23 release (Prilosec) multivitamin (Daily Multi-Vitamin 1 ea PO DAILY 05/10/13 04/30/22 tablet) cholecalciferol (vitamin D3) 50 2,000 unit PO DAILY 01/16/16 01/15/23 mcg (2,000 unit) tablet (Vitamin D3) fluticasone propionate 50 2 spry NS DAILY PRN 01/16/16 04/30/22 mcg/actuation nasal spray,suspension atorvastatin 20 mg tablet (Lipitor) 1 tab PO DAILY 02/01/17 01/15/23 albuterol sulfate 90 mcg/actuation 90 mcg inhalation 4-6XD 05/04/18 04/30/22 aerosol inhaler (Ventolin HFA) folic acid 1 mg tablet 1 mg PO DAILY 06/12/18 01/15/23 mycophenolate mofetil 250 mg 500 mg PO BID 11/12/18 04/30/22 capsule (CellCept) insulin aspart U-100 100 unit/mL 0 units (0 mL) subcut 11/15/18 01/15/23 (3 mL) subcutaneous pen (Novolog 0800,1200,1700 #0 mL FlexPen U-100 Insulin aspart) ipratropium 0.5 mg-albuterol 3 mg 3 ml UPD Q6H #0 mL 11/15/18 01/15/23 (2.5 mg base)/3 mL nebulization soln insulin detemir U-100 100 unit/mL See Rx Instructions .Route .COMPLEX 08/03/19 01/15/23 (3 mL) subcutaneous pen (Levemir FlexTouch U-100 Insulin) liraglutide 0.6 mg/0.1 mL (18 mg/3 1.2 mg subcut QDAY 08/03/19 01/15/23 mL) subcutaneous pen injector (Victoza 2-Nigel) primidone 50 mg tablet 75 mg PO TID 08/03/19 01/15/23 amlodipine 5 mg tablet 5 mg PO DAILY #30 tabs 08/06/19 01/15/23 fluticasone propionate 50 1 spray intranasal DAILY 09/04/20 01/15/23 mcg/actuation nasal spray,suspension hydralazine 100 mg tablet 100 mg PO TID 09/04/20 01/15/23 metoprolol succinate 50 mg 50 mg PO BID 09/04/20 01/15/23 tablet,extended release 24 hr tacrolimus 1 mg capsule, 1 mg PO Q12H 09/04/20 01/15/23 immediate-release (Prograf) vitamin B complex (B 1 tab PO BID 09/04/20 01/15/23 Complex-Vitamin B12 tablet) calcitriol 0.25 mcg capsule 0.5 mcg PO DAILY 04/14/21 01/15/23 mycophenolate mofetil 250 mg 500 mg PO BID 04/14/21 01/15/23 capsule (CellCept) mupirocin 2 % topical ointment 1 applic topical TID #15 grams 04/15/21 04/30/22 mupirocin 2 % topical ointment 1 applic topical TID #15 grams 04/30/22 04/30/22 darbepoetin cristy in polysorbat 200 200 mcg subcut QWEEK 01/15/23 01/15/23 mcg/mL in polysorbate injection (Aranesp) guaifenesin 600 mg tablet, 600 mg PO Q12H 01/15/23 01/15/23 extended release 12 hr losartan 25 mg tablet 25 mg PO HS 01/15/23 01/15/23 umeclidinium 62.5 mcg-vilanterol 1 inh inhalation DAILY 01/15/23 01/15/23 25 mcg/actuation powdr for inhalation (Anoro Ellipta) Previous Rx's Medication Instructions Recorded insulin aspart U-100 100 unit/mL 0 units (0 mL) subcut 11/15/18 (3 mL) subcutaneous pen (Novolog 0800,1200,1700 #0 mL FlexPen U-100 Insulin aspart) ipratropium 0.5 mg-albuterol 3 mg 3 ml UPD Q6H #0 mL 11/15/18 (2.5 mg base)/3 mL nebulization soln amlodipine 5 mg tablet 5 mg PO DAILY #30 tabs 08/06/19 mupirocin 2 % topical ointment 1 applic topical TID #15 grams 04/15/21 mupirocin 2 % topical ointment 1 applic topical TID #15 grams 04/30/22 Allergies Allergy/AdvReac Type Severity Reaction Status Date / Time levofloxacin Allergy Mild Unknown Verified 01/15/23 11:20 sulfamethoxazole Allergy Mild Unknown Verified 01/15/23 11:20 [From Bactrim] trimethoprim [From Bactrim] Allergy Mild Unknown Verified 01/15/23 11:20 doxycycline Allergy Unknown Verified 01/15/23 11:20 clindamycin Allergy Skin Rash Verified 01/15/23 11:20 ibuprofen Allergy Verified 01/15/23 11:20 Penicillins Allergy SWELLING Verified 01/15/23 11:20 tree nut Allergy Verified 01/15/23 11:20 lisinopril AdvReac KIDNEY Verified 01/15/23 11:20 SHUT DOWN yaneth inhibitors Allergy Mild Skin Rash Uncoded 01/15/23 11:20 CATS & BIRDS AdvReac Intermediate WHEEZING Uncoded 01/15/23 11:20 General Stated Complaint: GenMedical RADHA: 3 PFSH All Active Problems Edentulous (Acute) Esophageal foreign body (Acute) Food impaction of esophagus (Acute) Macrocytic anemia (Acute) Gastroparesis diabeticorum (Acute) Kidney transplant recipient (Acute) Chronic kidney disease (Chronic) Hypertension (Chronic) Hyperlipidemia (Chronic) CAD (coronary artery disease) (Chronic) GERD (gastroesophageal reflux disease) (Chronic) Asthma (Chronic) Chronic anxiety (Chronic) Chronic depression (Chronic) Status post bilateral below knee amputation (Chronic) Intention tremor (Chronic) Status post appendectomy (Acute) Physical medicine and rehabilitation procedures (Acute 06/27/13) Dysphagia (Acute) Infection of amputation stump of right lower extremity (Acute) CHF (congestive heart failure) (Acute) Diastolic CHF (Acute) CAP (community acquired pneumonia) (Acute) Acute kidney injury superimposed on chronic kidney disease (Acute) Uncontrolled insulin dependent diabetes mellitus (Acute) Ambulatory dysfunction (Acute) Sepsis (Acute) MELISSA (obstructive sleep apnea) (Chronic) Left lower lobe pneumonia (Acute) Wenckebach second degree AV block (Acute) Fluid level behind tympanic membrane of left ear (Acute) Sensory hearing loss, bilateral (Acute) Tinnitus, bilateral (Acute) Osteoma of ear canal (Acute) Atrial fibrillation (Chronic) Kidney transplant recipient (Chronic) 2005 Medical History Adenomatous colon polyp Anxiety and depression Diabetes mellitus Erectile dysfunction GERD (gastroesophageal reflux disease) History of colon polyps HTN (hypertension) Hydrocele Hyperlipidemia Intention tremor Lumbar back pain Obesity MELISSA (obstructive sleep apnea) Personal history of allergy to other antibiotic agent Sciatica Stage 3 severe COPD by GOLD classification Tremor Tricuspid insufficiency Vitamin B 12 deficiency Surgical History Colonoscopy - MAC (02/01/17) EGD - MAC (04/02/16) History of below-knee amputation of both lower extremities 2010 History of colonoscopy (~10/2020) Hx of amputation below knee Kidney transplant recipient Family History Brother Personal history of malignant neoplasm Social History Smoking/Tobacco Use Status: Former Tobacco Use Quit Date: 07/25/90 Smoking risk assessment performed?: Yes Alcohol Intake: never Drug use: Never Substance use type: does not use Do you feel safe at home: Yes Do you feel safe in your relationship?: Yes Exam Const General: cooperative, comfortable and no acute distress HENMT Head: normal to inspection Eyes Pupils: PERRL EOM: EOM intact bilaterally Resp Effort & Inspection: normal respiratory effort Auscultation: clear to auscultation bilaterally Cardio Rate: regular rate Rhythm: regular rhythm Skin General skin exam: no rashes or lesions noted Neuro General: patient alert and patient oriented x3 Cranial Nerves: CN's II-XI intact bilaterally Cognition: normal cognition Speech: speech normal Gait: normal gait Motor: strength 5/5 throughout and no pronator drift Sensory Exam: no sensory deficits noted Extrem General: normal to inspection Course Vital Signs Vital signs: Vital Signs Pulse 82 01/15/23 10:56 Respiratory Rate 18 01/15/23 10:56 Temperature 37.0 C 01/15/23 11:00 Pulse 82 01/15/23 10:56 Respiratory Rate 14 01/15/23 11:03 Respiratory Effort Normal, Non-Labored 01/15/23 11:03 Respiratory Depth Normal 01/15/23 11:03 Respiratory Pattern Normal 01/15/23 11:03 Blood Pressure 161/74 H 01/15/23 11:00 Pulse Oximetry 97 01/15/23 11:00 Oxygen Delivery Method Room Air 01/15/23 11:00 Oxygen Flow Rate 0 01/15/23 11:00 Lab/Test Results Lab/Test Results: Laboratory Tests Range/Units 01/15/23 01/15/23 01/15/23 11:00 11:00 11:00 WBC (4.4-10.8) 10^3/uL 6.18 RBC (4.36-5.78) 10^6/uL 3.03 L Hgb (13.5-17.5) g/dL 9.4 L Hct (40.0-50.0) % 29.0 L MCV (80-95) fL 96 H MCH (27.0-33.0) pg 31.0 MCHC (32.0-36.0) % 32.4 RDW (11.8-14.1) % 13.6 Plt Count (130-400) 10^3/uL 179 MPV (8.0-11.0) fL 8.3 Immature Gran % 0.5 Neutrophils % 68.6 Lymphocytes % 21.0 Monocytes % 7.3 Eosinophils % 2.4 Basophils % 0.2 Nucleated RBC % (0.0-0.3) % 0.0 Absolute Neutrophils (1.2-6.7) 10^3/uL 4.24 Absolute Lymphocytes (1.2-3.4) 10^3/uL 1.30 Absolute Monocytes (0.1-0.8) 10^3/uL 0.45 Absolute Eosinophils (0.0-0.7) 10^3/uL 0.15 Absolute Basophils (0.0-0.2) 10^3/uL 0.01 VBG pH (7.31-7.41) VBG pCO2 (41-51) mmHg VBG pO2 mmHg VBG HCO3 (23-28) mmol/L VBG Total CO2 (24-29) mmol/L VBG O2 Saturation % VBG Base Excess (-2-3) mmol/L Sodium (136-145) mmol/L 139 Potassium (3.5-5.1) mmol/L 4.1 Chloride (98-107) mmol/L 104 Carbon Dioxide (21.0-32.0) mmol/L 26.6 Anion Gap (3-11) mmol/L 8.4 BUN (7-18) mg/dL 52 H Creatinine (0.70-1.30) mg/dL 5.4 H* Est GFR (CKD-EPI 2020) (mL/min/1.73m2) 10.77 Glucose (74-106) mg/dL 327 H Calcium (8.5-10.1) mg/dL 9.8 Magnesium (1.8-2.4) mg/dL 1.7 L Total Bilirubin (0.2-1.0) mg/dL 0.4 AST (15-37) U/L 8 L ALT (16-63) U/L 15 L Alkaline Phosphatase (46-116) U/L 124 H Troponin I (<or=60) ng/L < 50 Total Protein (6.4-8.2) g/dL 7.9 Albumin (3.4-5.0) g/dL 2.9 L TSH (0.36-3.74) uIU/mL 2.44 Cancelled Urine Color (Yellow) Urine Clarity (Clear) Urine pH (5-8) Ur Specific [place] (1.005-1.025) Urine Protein (Negative) mg/dL Urine Ketones (Negative) mg/dL Urine Blood (Negative) Urine Nitrite (Negative) Urine Bilirubin (Negative) Urine Urobilinogen (Up to 0.2) mg/dL Ur Leukocyte Esterase (Negative) Urine RBC (0-2) HPF Urine WBC (0-5) HPF Ur Epithelial Cells (Negative) HPF Urine Crystals (Negative) HPF Urine Bacteria (Negative) HPF Urine Casts (Negative) LPF Urine Mucus (Negative) Ur Culture Indicated? Urine Glucose (Negative) mg/dL Range/Units 01/15/23 01/15/23 11:00 11:40 WBC (4.4-10.8) 10^3/uL RBC (4.36-5.78) 10^6/uL Hgb (13.5-17.5) g/dL Hct (40.0-50.0) % MCV (80-95) fL MCH (27.0-33.0) pg MCHC (32.0-36.0) % RDW (11.8-14.1) % Plt Count (130-400) 10^3/uL MPV (8.0-11.0) fL Immature Gran % Neutrophils % Lymphocytes % Monocytes % Eosinophils % Basophils % Nucleated RBC % (0.0-0.3) % Absolute Neutrophils (1.2-6.7) 10^3/uL Absolute Lymphocytes (1.2-3.4) 10^3/uL Absolute Monocytes (0.1-0.8) 10^3/uL Absolute Eosinophils (0.0-0.7) 10^3/uL Absolute Basophils (0.0-0.2) 10^3/uL VBG pH (7.31-7.41) 7.33 VBG pCO2 (41-51) mmHg 51 VBG pO2 mmHg 36 VBG HCO3 (23-28) mmol/L 27 VBG Total CO2 (24-29) mmol/L 26 VBG O2 Saturation % 68 VBG Base Excess (-2-3) mmol/L 1 Sodium (136-145) mmol/L Potassium (3.5-5.1) mmol/L Chloride (98-107) mmol/L Carbon Dioxide (21.0-32.0) mmol/L Anion Gap (3-11) mmol/L BUN (7-18) mg/dL Creatinine (0.70-1.30) mg/dL Est GFR (CKD-EPI 2020) (mL/min/1.73m2) Glucose (74-106) mg/dL Calcium (8.5-10.1) mg/dL Magnesium (1.8-2.4) mg/dL Total Bilirubin (0.2-1.0) mg/dL AST (15-37) U/L ALT (16-63) U/L Alkaline Phosphatase (46-116) U/L Troponin I (<or=60) ng/L Total Protein (6.4-8.2) g/dL Albumin (3.4-5.0) g/dL TSH (0.36-3.74) uIU/mL Urine Color (Yellow) Yellow Urine Clarity (Clear) Clear Urine pH (5-8) 7.0 Ur Specific [place] (1.005-1.025) 1.020 Urine Protein (Negative) mg/dL >=300 H Urine Ketones (Negative) mg/dL Negative Urine Blood (Negative) Negative Urine Nitrite (Negative) Negative Urine Bilirubin (Negative) Negative Urine Urobilinogen (Up to 0.2) mg/dL 0.2 Ur Leukocyte Esterase (Negative) Negative Urine RBC (0-2) HPF 3-5 H Urine WBC (0-5) HPF 0-2 Ur Epithelial Cells (Negative) HPF Negative Urine Crystals (Negative) HPF Negative Urine Bacteria (Negative) HPF Negative Urine Casts (Negative) LPF Negative Urine Mucus (Negative) Trace Ur Culture Indicated? No Urine Glucose (Negative) mg/dL 500 H
[2023-01-15] MEDS: Aspirin 81 MG CHEW 325 MG PO (13:19)
[2023-01-15 13:21] LABS: Troponin I < 50 ng/L (<or=60)
[2023-01-15 17:41] LABS: Troponin I < 50 ng/L (<or=60)
--- NOTE | 2023-01-15 17:55 | W.PM.HP.N ---
Date of service: 01/15/23 Time of Service: 17:55 Assessment and Plan Assessment and plan (1) CAD (coronary artery disease): Status: Chronic Assessment and plan: He presented after a constellation of symptoms; including chest discomfort. Troponin neg x 2 in the ED. Repeat is scheduled. Telemetry. Initial EKG interpreted as accelerated junctional rhythm. On telemetry, P-waves are noted. Short pauses documented. Cont. aspirin, BB, statin. (2) Chronic kidney disease: Status: Chronic Assessment and plan: Monitor. Avoid nephrotoxic agents. Qualifiers: Chronic kidney disease stage: stage 3 (moderate) Qualified Code(s): N18.3 - Chronic kidney disease, stage 3 (moderate) (3) Hypertension: Status: Chronic Assessment and plan: Cont amlodipine, metoprolol and losartan. Monitor. Qualifiers: Hypertension type: essential hypertension Qualified Code(s): I10 - Essential (primary) hypertension (4) Kidney transplant recipient: Status: Acute Assessment and plan: Continues to be followed closely with [facility] nephrology. Avoid nephrotoxic agents and hypotension. Cont Cellcept and PRograf. Prograf/tacrolimus level pending. (5) COPD (chronic obstructive pulmonary disease): Status: None Assessment and plan: No exacerbation. Cont Anoro Ellipta PRN Duonebs History of Present Illness History of Present Illness Chief Complaint: Confusion, lethargy, diaphoresis, weakness, chest pain. Narrative: This is a 67 yo male with a PMH of CAD, DM, CKD, s/p renal transplant 15 yrs ago, HTN, HLD. He presented to the ED after a variety of symptoms developed at appx 0930 the AM of admission: confusion, lethargy, pallor (per ), diaphoresis, weakness with some mild chest pain. This resolved after appx 30 mins. ED w/u: EKG with RBBB and LFB, new onset. Troponin negative x 2. CT head w/o acute findings. CXR w/o acute findings. UA neg. Creatinine of 5.4. This has been his level for appx 2 months. Sees nephrology at [facility] routinely. Glucose of 349. IV fluids administered. Tacrolimus level sent. Admit for OBS. Review of Systems All systems reviewed & are unremarkable except as noted in HPI and below PFSH All Active Problems Edentulous (Acute) Esophageal foreign body (Acute) Food impaction of esophagus (Acute) Macrocytic anemia (Acute) Gastroparesis diabeticorum (Acute) Kidney transplant recipient (Acute) Chronic kidney disease (Chronic) Hypertension (Chronic) Hyperlipidemia (Chronic) CAD (coronary artery disease) (Chronic) GERD (gastroesophageal reflux disease) (Chronic) Asthma (Chronic) Chronic anxiety (Chronic) Chronic depression (Chronic) Status post bilateral below knee amputation (Chronic) Intention tremor (Chronic) Status post appendectomy (Acute) Physical medicine and rehabilitation procedures (Acute 06/27/13) Dysphagia (Acute) Infection of amputation stump of right lower extremity (Acute) CHF (congestive heart failure) (Acute) Diastolic CHF (Acute) CAP (community acquired pneumonia) (Acute) Acute kidney injury superimposed on chronic kidney disease (Acute) Uncontrolled insulin dependent diabetes mellitus (Acute) Ambulatory dysfunction (Acute) Sepsis (Acute) MELISSA (obstructive sleep apnea) (Chronic) Left lower lobe pneumonia (Acute) Wenckebach second degree AV block (Acute) Fluid level behind tympanic membrane of left ear (Acute) Sensory hearing loss, bilateral (Acute) Tinnitus, bilateral (Acute) Osteoma of ear canal (Acute) Atrial fibrillation (Chronic) Kidney transplant recipient (Chronic) 2005 Medical History Adenomatous colon polyp Anxiety and depression Diabetes mellitus Erectile dysfunction GERD (gastroesophageal reflux disease) History of colon polyps HTN (hypertension) Hydrocele Hyperlipidemia Intention tremor Lumbar back pain Obesity MELISSA (obstructive sleep apnea) Personal history of allergy to other antibiotic agent Sciatica Stage 3 severe COPD by GOLD classification Tremor Tricuspid insufficiency Vitamin B 12 deficiency Surgical History Colonoscopy - MAC (02/01/17) EGD - MAC (04/02/16) History of below-knee amputation of both lower extremities 2010 History of colonoscopy (~10/2020) Hx of amputation below knee Kidney transplant recipient Family History Brother Personal history of malignant neoplasm Social History Smoking/Tobacco Use Status: Former Tobacco Use Quit Date: 07/25/90 Smoking risk assessment performed?: Yes Alcohol Intake: never Drug use: Never Substance use type: does not use Do you feel safe at home: Yes Do you feel safe in your relationship?: Yes Meds Allergies and Home Medications Allergies Allergy/AdvReac Type Severity Reaction Status Date / Time levofloxacin Allergy Mild Unknown Verified 01/15/23 11:20 sulfamethoxazole Allergy Mild Unknown Verified 01/15/23 11:20 [From Bactrim] trimethoprim [From Bactrim] Allergy Mild Unknown Verified 01/15/23 11:20 doxycycline Allergy Unknown Verified 01/15/23 11:20 clindamycin Allergy Skin Rash Verified 01/15/23 11:20 ibuprofen Allergy Verified 01/15/23 11:20 Penicillins Allergy SWELLING Verified 01/15/23 11:20 tree nut Allergy Verified 01/15/23 11:20 lisinopril AdvReac KIDNEY Verified 01/15/23 11:20 SHUT DOWN yaneth inhibitors Allergy Mild Skin Rash Uncoded 01/15/23 11:20 CATS & BIRDS AdvReac Intermediate WHEEZING Uncoded 01/15/23 11:20 Home Medications Medication Instructions Recorded Confirmed Type aspirin 81 mg tablet,delayed 81 mg PO DAILY 10/31/12 01/15/23 History release (Belgica Low Dose Aspirin) montelukast 10 mg tablet 10 mg PO DAILY 10/31/12 01/15/23 History omeprazole 40 mg capsule,delayed 40 mg PO DAILY 10/31/12 01/15/23 History release (Prilosec) multivitamin (Daily Multi-Vitamin 1 ea PO DAILY 05/10/13 04/30/22 History tablet) cholecalciferol (vitamin D3) 50 2,000 unit PO DAILY 01/16/16 01/15/23 History mcg (2,000 unit) tablet (Vitamin D3) fluticasone propionate 50 2 spry NS DAILY PRN 01/16/16 04/30/22 History mcg/actuation nasal spray,suspension atorvastatin 20 mg tablet (Lipitor) 1 tab PO DAILY 02/01/17 01/15/23 History albuterol sulfate 90 mcg/actuation 90 mcg inhalation 4-6XD 05/04/18 04/30/22 History aerosol inhaler (Ventolin HFA) folic acid 1 mg tablet 1 mg PO DAILY 06/12/18 01/15/23 History mycophenolate mofetil 250 mg 500 mg PO BID 11/12/18 04/30/22 History capsule (CellCept) insulin aspart U-100 100 unit/mL 0 units (0 mL) subcut 11/15/18 01/15/23 Rx (3 mL) subcutaneous pen (Novolog 0800,1200,1700 #0 mL FlexPen U-100 Insulin aspart) ipratropium 0.5 mg-albuterol 3 mg 3 ml UPD Q6H #0 mL 11/15/18 01/15/23 Rx (2.5 mg base)/3 mL nebulization soln insulin detemir U-100 100 unit/mL See Rx Instructions .Route .COMPLEX 08/03/19 01/15/23 History (3 mL) subcutaneous pen (Levemir FlexTouch U-100 Insulin) liraglutide 0.6 mg/0.1 mL (18 mg/3 1.2 mg subcut QDAY 08/03/19 01/15/23 History mL) subcutaneous pen injector (Vyuza 2-Nigel) primidone 50 mg tablet 75 mg PO TID 08/03/19 01/15/23 History amlodipine 5 mg tablet 5 mg PO DAILY #30 tabs 08/06/19 01/15/23 Rx fluticasone propionate 50 1 spray intranasal DAILY 09/04/20 01/15/23 History mcg/actuation nasal spray,suspension hydralazine 100 mg tablet 100 mg PO TID 09/04/20 01/15/23 History metoprolol succinate 50 mg 50 mg PO BID 09/04/20 01/15/23 History tablet,extended release 24 hr tacrolimus 1 mg capsule, 1 mg PO Q12H 09/04/20 01/15/23 History immediate-release (Prograf) vitamin B complex (B 1 tab PO BID 09/04/20 01/15/23 History Complex-Vitamin B12 tablet) calcitriol 0.25 mcg capsule 0.5 mcg PO DAILY 04/14/21 01/15/23 History mycophenolate mofetil 250 mg 500 mg PO BID 04/14/21 01/15/23 History capsule (CellCept) mupirocin 2 % topical ointment 1 applic topical TID #15 grams 04/15/21 04/30/22 Rx mupirocin 2 % topical ointment 1 applic topical TID #15 grams 04/30/22 04/30/22 Rx darbepoetin cristy in polysorbat 200 200 mcg subcut QWEEK 01/15/23 01/15/23 History mcg/mL in polysorbate injection (Aranesp) guaifenesin 600 mg tablet, 600 mg PO Q12H 01/15/23 01/15/23 History extended release 12 hr losartan 25 mg tablet 25 mg PO HS 01/15/23 01/15/23 History umeclidinium 62.5 mcg-vilanterol 1 inh inhalation DAILY 01/15/23 01/15/23 History 25 mcg/actuation powdr for inhalation (Anoro Ellipta) Exam Narrative Exam Narrative: Pleasant and conversant. Const General: cooperative, comfortable and no acute distress HENMT Head: normal to inspection Eyes General: appearance normal, both eyes and all related structures Sclera: sclerae normal Pupils: PERRL Resp Effort & Inspection: normal respiratory effort Auscultation: clear to auscultation bilaterally Cardio Rate: regular rate Rhythm: regular rhythm Heart Sounds: S1 normal and S2 normal GI Inspection: obesity Palpation: soft and nontender Skin General skin exam: no rashes or lesions noted Neuro General: patient alert and patient oriented x3 Cranial Nerves: facial strength normal Cognition: normal cognition Speech: speech normal Extrem General: other (BLE AKAs) Psych Appearance: grossly normal Mental Status: mental status grossly normal Mood: congruent mood Affect: normal affect Results Labs 01/16/23 06:25 01/16/23 06:25 Labs: Laboratory Results - last 24 hr 01/15/23 01/15/23 01/15/23 11:00 11:00 11:00 WBC 6.18 RBC 3.03 L Hgb 9.4 L Hct 29.0 L MCV 96 H MCH 31.0 MCHC 32.4 RDW 13.6 Plt Count 179 MPV 8.3 Immature Gran % 0.5 Neutrophils % 68.6 Lymphocytes % 21.0 Monocytes % 7.3 Eosinophils % 2.4 Basophils % 0.2 Nucleated RBC % 0.0 Absolute Neutrophils 4.24 Absolute Lymphocytes 1.30 Absolute Monocytes 0.45 Absolute Eosinophils 0.15 Absolute Basophils 0.01 VBG pH VBG pCO2 VBG pO2 VBG HCO3 VBG Total CO2 VBG O2 Saturation VBG Base Excess Sodium 139 Potassium 4.1 Chloride 104 Carbon Dioxide 26.6 Anion Gap 8.4 BUN 52 H Creatinine 5.4 H* Est GFR (CKD-EPI 2020) 10.77 Glucose 327 H Calcium 9.8 Magnesium 1.7 L Total Bilirubin 0.4 AST 8 L ALT 15 L Alkaline Phosphatase 124 H Troponin I < 50 C-Reactive Protein Total Protein 7.9 Albumin 2.9 L TSH 2.44 Cancelled Urine Color Urine Clarity Urine pH Ur Specific [address] Urine Protein Urine Ketones Urine Blood Urine Nitrite Urine Bilirubin Urine Urobilinogen Ur Leukocyte Esterase Urine RBC Urine WBC Ur Epithelial Cells Urine Crystals Urine Bacteria Urine Casts Urine Mucus Ur Culture Indicated? Urine Glucose 01/15/23 01/15/23 01/15/23 11:00 11:40 12:59 WBC RBC Hgb Hct MCV MCH MCHC RDW Plt Count MPV Immature Gran % Neutrophils % Lymphocytes % Monocytes % Eosinophils % Basophils % Nucleated RBC % Absolute Neutrophils Absolute Lymphocytes Absolute Monocytes Absolute Eosinophils Absolute Basophils VBG pH 7.33 VBG pCO2 51 VBG pO2 36 VBG HCO3 27 VBG Total CO2 26 VBG O2 Saturation 68 VBG Base Excess 1 Sodium Potassium Chloride Carbon Dioxide Anion Gap BUN Creatinine Est GFR (CKD-EPI 2020) Glucose Calcium Magnesium Total Bilirubin AST ALT Alkaline Phosphatase Troponin I < 50 C-Reactive Protein Total Protein Albumin TSH Urine Color Yellow Urine Clarity Clear Urine pH [address] 1.020 Urine Protein >=300 H Urine Ketones Negative Urine Blood Negative Urine Nitrite Negative Urine Bilirubin Negative Urine Urobilinogen 0.2 Ur Leukocyte Esterase Negative Urine RBC 3-5 H Urine WBC 0-2 Ur Epithelial Cells Negative Urine Crystals Negative Urine Bacteria Negative Urine Casts Negative Urine Mucus Trace Ur Culture Indicated? No Urine Glucose 500 H 01/15/23 01/15/23 01/15/23 14:06 17:10 17:18 WBC RBC Hgb Hct MCV MCH MCHC RDW Plt Count MPV Immature Gran % Neutrophils % Lymphocytes % Monocytes % Eosinophils % Basophils % Nucleated RBC % Absolute Neutrophils Absolute Lymphocytes Absolute Monocytes Absolute Eosinophils Absolute Basophils VBG pH VBG pCO2 VBG pO2 VBG HCO3 VBG Total CO2 VBG O2 Saturation VBG Base Excess Sodium Cancelled Potassium Cancelled Chloride Cancelled Carbon Dioxide Cancelled Anion Gap Cancelled BUN Cancelled Creatinine Cancelled Est GFR (CKD-EPI 2020) Cancelled Glucose Cancelled Calcium Cancelled Magnesium Total Bilirubin Cancelled AST Cancelled ALT Cancelled Alkaline Phosphatase Cancelled Troponin I < 50 Cancelled C-Reactive Protein Cancelled Total Protein Cancelled Albumin Cancelled TSH Urine Color Urine Clarity Urine pH Ur Specific [address] Urine Protein Urine Ketones Urine Blood Urine Nitrite Urine Bilirubin Urine Urobilinogen Ur Leukocyte Esterase Urine RBC Urine WBC Ur Epithelial Cells Urine Crystals Urine Bacteria Urine Casts Urine Mucus Ur Culture Indicated? Urine Glucose Last Vital Signs Temp 36.2 C L 01/15/23 16:00 Pulse 77 01/15/23 16:26 Resp 20 01/15/23 16:00 BP 183/72 H 01/15/23 16:00 Pulse Ox 99 01/15/23 16:00 Time Spent Time spent with Patient: 40-54 minutes Time was spent: preparing to see the patient(eg.review tests), obtaining and/or reviewing separately otained hiistory, ordering medications,tests, procedures, referring, communicating with other health dog day care attendant and indepentently interpreting results
[2023-01-15] MEDS: Metoprolol CR 50 MG TABCR PO (20:07)
[2023-01-15] MEDS: Primidone 50 MG TAB 75 MG PO (20:07)
[2023-01-15] MEDS: hydrALAZINE 25 MG TAB 100 MG PO (20:07)
[2023-01-15] MEDS: Tacrolimus 0.5 MG CAP 1 MG PO (20:25)
[2023-01-15] MEDS: Losartan 25 MG TAB PO (21:23)
[2023-01-15] MEDS: Heparin 5,000 UNITS/ML VIAL 5000 UNITS SC (21:27)
[2023-01-16] MEDS: Heparin 5,000 UNITS/ML VIAL 5000 UNITS SC (05:37)
[2023-01-16 07:00] VITALS: PULSE 67; PULSE 82
[2023-01-16 07:01] LABS: HCT 28.5 % (40.0-50.0); HGB 9.1 g/dL (13.5-17.5); MCH 30.8 pg (27.0-33.0); MCHC 31.9 % (32.0-36.0); MCV 97 fL (80-95); MPV 8.8 fL (8.0-11.0); Platelet Count 198 10^3/uL (130-400); RBC 2.95 10^6/uL (4.36-5.78); RDW 13.8 % (11.8-14.1); RDW-SD 48.7 fL; WBC 6.75 10^3/uL (4.4-10.8)
[2023-01-16 07:32] LABS: Anion Gap 9.1 mmol/L (3-11); BUN 49 mg/dL (7-18); CO2 24.9 mmol/L (21.0-32.0); Calcium 9.9 mg/dL (8.5-10.1); Chloride 104 mmol/L (98-107); Estimated GFR 11.81 (mL/min/1.73m2); Glucose 256 mg/dL (74-106); Potassium 4.3 mmol/L (3.5-5.1); Sodium 138 mmol/L (136-145)
[2023-01-16 07:35] VITALS: BP 151/68; PULSE 75; RESP 18; TEMP 36.3; O2SAT 97
--- NOTE | 2023-01-16 07:49 | RESPIRATORY ---
RT spoke with patient about his MELISSA diagnosis and if he had a home unit. Patient advised he has a home CPAP unit through [facility] in [place], [place] but he refuses to use it as it makes him feel worse after using (dry, sore throat, wakes up with headaches). He has spoken with his PCP and made them aware of his concerns with the machine. RT offered to set patient up on hospital unit while here but patient not interested.
[2023-01-16] MEDS: Tiotropium/Olodaterol 10 PUFF INHALER 2 PUFF IH (07:54)
[2023-01-16] MEDS: Cholecalciferol (Vitamin D3) 1,000 UNIT TAB 2000 UNITS PO (08:42)
[2023-01-16] MEDS: Omeprazole 20 MG CAPCR 40 MG PO (08:43)
[2023-01-16] MEDS: Primidone 50 MG TAB 75 MG PO (08:43)
[2023-01-16] MEDS: Atorvastatin 20 MG TAB PO (08:44)
[2023-01-16] MEDS: Tacrolimus 0.5 MG CAP 1 MG PO (08:44)
[2023-01-16] MEDS: amLODIPine 5 MG TAB PO (08:44)
[2023-01-16] MEDS: Metoprolol CR 50 MG TABCR PO (08:44)
[2023-01-16] MEDS: Calcitriol 0.25 MCG CAP 0.5 MCG PO (08:44)
[2023-01-16] MEDS: Aspirin E.C. 81 MG TABEC PO (08:44)
[2023-01-16] MEDS: Montelukast 10 MG TAB PO (08:44)
[2023-01-16] MEDS: Folic Acid 1 MG TAB PO (08:44)
[2023-01-16] MEDS: hydrALAZINE 25 MG TAB 100 MG PO (09:43)
[2023-01-16 11:10] VITALS: BP 124/67; PULSE 61; RESP 18; TEMP 36.5; O2SAT 97
[2023-01-16] MEDS: Fosfomycin Tromethamine 3 GM PACKET PO (11:21)
[2023-01-16 11:25] LABS: Source Nasal/Nares
[2023-01-16 12:05] LABS: COVID-19 PCR Negative (Negative)
[2023-01-16] MEDS: Insulin Aspart 300 UNITS/3 ML PEN SC (12:05)
[2023-01-16 12:34] VITALS: PULSE 61
--- NOTE | 2023-01-16 12:36 | DSE_ITS ---
Date of service: 01/16/23 Time of Service: 12:37 DS: Diagnosis Discharge Diagnosis (1) CAD (coronary artery disease): Status: Chronic (2) Chronic kidney disease: Status: Chronic (3) Hypertension: Status: Chronic (4) Kidney transplant recipient: Status: Acute (5) COPD (chronic obstructive pulmonary disease): Status: None Discharge Plan Disposition Patient Disposition: Home Condition: Improving Discharge Details Reason For Visit: Acute Mental Status Changes, CP Admit Date/Time: 01/15/23 14:11 Admit Provider: Alexander Lagos Attending Provider: Alexander Lagos [facility] Hospital Course: This is a 67 yo male with a PMH of CAD, DM, CKD, s/p renal transplant 15 yrs ago, HTN, HLD.? He presented to the ED after a variety of symptoms developed at appx 0930 the AM of admission: confusion, lethargy, pallor (per ), diaphoresis, weakness with some mild chest pain.? This resolved after appx 30 mins. ED w/u: EKG with RBBB and LFB, new onset.? Troponin negative x 2. CT head w/o acute findings.? CXR w/o acute findings. UA neg. Creatinine of 5.4.? This has been his level for appx 2 months.? Sees nephrology at [facility] routinely.? Glucose of 349.? IV fluids administered. Tacrolimus level obtained; send out lab and is still pending. Admitted for OBS. His hospitalization was unremarkable; no recurrence of any of the above symptoms / findings that brought him to the hospital. On telemetry he was found not to be in a junctional rhythm. He did have intermittent dropped beats. His creatinine did improve to 5.0. He will continue to f/u closely with his blood or blood bank technician. PCP f/u in 1-[address] Vizcarra requested. Home Meds and New Rx's Prescriptions: New Inhaler, Assist Devices [Pocket Chamber] 1 ea miscellaneous DIRECTED Qty: 0 0RF Continued folic acid 1 mg tablet 1 mg PO DAILY mycophenolate mofetil [CellCept] 250 mg capsule 500 mg PO BID calcitriol 0.25 mcg capsule 0.5 mcg PO DAILY mupirocin 2 % ointment 1 applic topical TID Qty: 15 0RF mupirocin 2 % ointment 1 applic topical TID Qty: 15 0RF aspirin [Belgica Low Dose Aspirin] 81 MG tablet,delayed release (DR/EC) 81 mg PO DAILY omeprazole [Prilosec] 40 MG capsule,delayed release(DR/EC) 40 mg PO DAILY montelukast 10 MG tablet 10 mg PO DAILY multivitamin [Daily Multi-Vitamin] 1 EACH tablet 1 ea PO DAILY hydralazine 100 mg tablet 100 mg PO TID metoprolol succinate 50 mg tablet extended release 24 hr 50 mg PO BID fluticasone propionate 50 mcg/actuation spray,suspension 1 spray intranasal DAILY Rx Instructions: administer into each nostril vitamin B complex [B Complex-Vitamin B12] Tablet 1 tab PO BID tacrolimus [Prograf] 1 mg capsule 1 mg PO Q12H cholecalciferol (vitamin D3) [Vitamin D3] 2,000 UNIT tablet 2,000 unit PO DAILY fluticasone propionate 16 GM spray,suspension 2 spry NS DAILY PRN albuterol sulfate [Ventolin HFA] 90 mcg/actuation Hfa Aerosol Inhaler 90 mcg Inhalation 4-6XD ipratropium-albuterol 0.5 mg-3 mg(2.5 mg base)/3 mL Solution For Nebulization 3 ml UPD Q6H Qty: 0 0RF insulin aspart U-100 [Novolog FlexPen U-100 Insulin] 100 unit/mL Insulin Pen 0 units subcut 0800,1200,1700 Qty: 0 0RF Rx Instructions: sliding scale atorvastatin [Lipitor] 20 MG tablet 1 tab PO DAILY primidone 50 mg Tablet 75 mg PO TID Victoza 2-Nigel 0.6 mg/0.1 mL (18 mg/3 mL) Pen Injector 1.2 mg SUBCUT QDAY Levemir FlexTouch U100 Insulin 100 unit/mL (3 mL) insulin pen See Rx Instructions .ROUTE .COMPLEX Rx Instructions: 50 units and 35 untis at night amlodipine 5 mg Tablet 5 mg PO DAILY Qty: 30 2RF losartan 25 mg Tablet 25 mg PO HS Aranesp (in polysorbate) 200 mcg/mL Solution 200 mcg SUBCUT QWEEK Anoro Ellipta 62.5-25 mcg/actuation Blister With Device 1 inh INHALATION DAILY guaifenesin 600 mg Tablet Extended Release 12hr 600 mg PO Q12H Discontinued mycophenolate mofetil [CellCept] 250 mg Capsule 500 mg PO BID Discharge Instructions Referrals: Sylvia Vizcarra MD [ [facility] STAFF PHYSICIAN] - (CAD. New EKG findings of RBBB and LFB. ) Activity:: Activity as Tolerated Equipment/Supplies:: No Equipment Needed Diet:: Diabetic/heart healthy Discharge Orders Discharge Orders: Discharge Order (Routine); Ordered 01/16/23 Ordered By: Alexander Lagos DS: Summary Time Spent with Patient providing and/or coordinating discharge services: Greater than 30 minutes Status at Discharge Functional status at discharge: independent ambulation Overall status at discharge: patient is back to baseline Mental Status: mental status grossly normal Speech and Movement: speech clear Mood: congruent mood Affect: normal affect Exam Narrative Exam Narrative: Pleasant and conversant. Sitting in recliner. No recurrent episodes of confusion, lethargy, diaphoresis, chest pain. Const General: cooperative, comfortable and no acute distress HENMT Head: normal to inspection Eyes General: appearance normal, both eyes and all related structures Sclera: sclerae normal Pupils: PERRL Resp Effort & Inspection: normal respiratory effort Auscultation: clear to auscultation bilaterally Cardio Rate: regular rate Rhythm: regular rhythm Heart Sounds: S1 normal and S2 normal GI Inspection: obesity Palpation: soft and nontender Skin General skin exam: no rashes or lesions noted Neuro General: patient alert and patient oriented x3 Cranial Nerves: facial strength normal Cognition: normal cognition Speech: speech normal Extrem General: other (BLE AKAs) Psych Appearance: grossly normal Mental Status: mental status grossly normal Speech and Movement: speech clear Mood: congruent mood Affect: normal affect DS: Data Vitals/I&O Vitals and I&O: Vital Signs Temperature 36.5 C 01/16/23 11:10 Temperature Source Tympanic 01/16/23 11:10 Pulse 61 01/16/23 11:10 Pulse Rhythm Regular 01/16/23 08:00 Pulse 76 01/15/23 15:46 Respiratory Rate 18 01/16/23 11:10 Respiratory Effort Normal, Non-Labored 01/16/23 08:00 Respiratory Depth Normal 01/16/23 08:00 Respiratory Pattern Normal 01/16/23 08:00 Blood Pressure 124/67 01/16/23 11:10 Blood Pressure Mean 70 01/15/23 15:46 Pulse Oximetry 97 01/16/23 11:10 Oxygen Delivery Method Room Air 01/16/23 11:10 Oxygen Flow Rate 0 01/16/23 11:10 Pain Level 0 01/16/23 08:00 Intake & Output 01/15/23 01/16/23 01/16/23 23:59 11:59 23:59 Intake Total 510 / 510 240 / 240 Output Total 1150 / 1150 750 / 750 Balance -640 / -640 -510 / -510 Intake: IV 510 / 510 Oral 240 / 240 Output: Urine 1150 / 1150 750 / 750 Other: Urine Color Yellow Yellow Urine Appearance Clear Clear Urine Odor Normal Normal Voiding Methods Urinal Urinal Data Completed and Pending Labs on day of discharge: Labs from last 24 hours 01/16/23 01/16/23 01/16/23 11:20 06:25 06:25 WBC 6.75 RBC 2.95 L Hgb 9.1 L Hct 28.5 L MCV 97 H MCH 30.8 MCHC 31.9 L RDW 13.8 Plt Count 198 MPV 8.8 Sodium 138 Potassium 4.3 Chloride 104 Carbon Dioxide 24.9 Anion Gap 9.1 BUN 49 H Creatinine 5.0 H* Est GFR (CKD-EPI 2020) 11.81 Glucose 256 H Calcium 9.9 Total Bilirubin AST ALT Alkaline Phosphatase Troponin I C-Reactive Protein Total Protein Albumin COVID-19 Source Nasal/Nares SARS-CoV-2 (PCR) Negative 01/15/23 01/15/23 01/15/23 17:18 17:10 14:06 WBC RBC Hgb Hct MCV MCH MCHC RDW Plt Count MPV Sodium Cancelled Potassium Cancelled Chloride Cancelled Carbon Dioxide Cancelled Anion Gap Cancelled BUN Cancelled Creatinine Cancelled Est GFR (CKD-EPI 2020) Cancelled Glucose Cancelled Calcium Cancelled Total Bilirubin Cancelled AST Cancelled ALT Cancelled Alkaline Phosphatase Cancelled Troponin I Cancelled < 50 C-Reactive Protein Cancelled Total Protein Cancelled Albumin Cancelled COVID-19 Source SARS-CoV-2 (PCR) 01/15/23 12:59 WBC RBC Hgb Hct MCV MCH MCHC RDW Plt Count MPV Sodium Potassium Chloride Carbon Dioxide Anion Gap BUN Creatinine Est GFR (CKD-EPI 2020) Glucose Calcium Total Bilirubin AST ALT Alkaline Phosphatase Troponin I < 50 C-Reactive Protein Total Protein Albumin COVID-19 Source SARS-CoV-2 (PCR) [facility] All Active Problems Edentulous (Acute) Esophageal foreign body (Acute) Food impaction of esophagus (Acute) Macrocytic anemia (Acute) Gastroparesis diabeticorum (Acute) Kidney transplant recipient (Acute) Chronic kidney disease (Chronic) Hypertension (Chronic) Hyperlipidemia (Chronic) CAD (coronary artery disease) (Chronic) GERD (gastroesophageal reflux disease) (Chronic) Asthma (Chronic) Chronic anxiety (Chronic) Chronic depression (Chronic) Status post bilateral below knee amputation (Chronic) Intention tremor (Chronic) Status post appendectomy (Acute) Physical medicine and rehabilitation procedures (Acute 06/27/13) Dysphagia (Acute) Infection of amputation stump of right lower extremity (Acute) CHF (congestive heart failure) (Acute) Diastolic CHF (Acute) CAP (community acquired pneumonia) (Acute) Acute kidney injury superimposed on chronic kidney disease (Acute) Uncontrolled insulin dependent diabetes mellitus (Acute) Ambulatory dysfunction (Acute) Sepsis (Acute) MELISSA (obstructive sleep apnea) (Chronic) Left lower lobe pneumonia (Acute) Wenckebach second degree AV block (Acute) Fluid level behind tympanic membrane of left ear (Acute) Sensory hearing loss, bilateral (Acute) Tinnitus, bilateral (Acute) Osteoma of ear canal (Acute) Atrial fibrillation (Chronic) Kidney transplant recipient (Chronic) 2005 Medical History Adenomatous colon polyp Anxiety and depression Diabetes mellitus Erectile dysfunction GERD (gastroesophageal reflux disease) History of colon polyps HTN (hypertension) Hydrocele Hyperlipidemia Intention tremor Lumbar back pain Obesity MELISSA (obstructive sleep apnea) Personal history of allergy to other antibiotic agent Sciatica Stage 3 severe COPD by GOLD classification Tremor Tricuspid insufficiency Vitamin B 12 deficiency Surgical History Colonoscopy - MAC (02/01/17) EGD - MAC (04/02/16) History of below-knee amputation of both lower extremities 2010 History of colonoscopy (~10/2020) Hx of amputation below knee Kidney transplant recipient Family History Brother Personal history of malignant neoplasm Social History Smoking/Tobacco Use Status: Former Tobacco Use Quit Date: 07/25/90 Smoking risk assessment performed?: Yes Alcohol Intake: never Drug use: Never Substance use type: does not use Do you feel safe at home: Yes Do you feel safe in your relationship?: Yes Time Spent with Patient Time Spent with Patient: <45 minutes Time was spent: preparing to see the patient(eg.review tests), referring, communicating with other health respiratory care technician, indepentently interpreting results, counseling the patient and care coordination
[2023-01-16 13:16] LABS: Tacrolimus 2.7 ng/mL (See Note)
== END 2023-01-16 13:32 | disposition home or self-care (01) ==
LOC: ER 14:54 → MS 15:56
PROVIDERS: Admitting Provider Family Medicine; Emergency Provider Physician Assistant; PCP Family Medicine; Visit Provider Family Medicine
DX: R07.89 Other chest pain (principal); R41.0 Disorientation, unspecified; R47.02 Dysphasia; I45.2 Bifascicular block; I25.10 Atherosclerotic heart disease of native coronary artery without angina pectoris; N18.30 Chronic kidney disease, stage 3 unspecified; J44.9 Chronic obstructive pulmonary disease, unspecified; Z94.0 Kidney transplant status; Z79.620 Long term (current) use of immunosuppressive biologic; E11.22 Type 2 diabetes mellitus with diabetic chronic kidney disease; E78.5 Hyperlipidemia, unspecified; D53.8 Other specified nutritional anemias; E11.43 Type 2 diabetes mellitus with diabetic autonomic (poly)neuropathy; K31.84 Gastroparesis; K21.9 Gastro-esophageal reflux disease without esophagitis; F41.9 Anxiety disorder, unspecified; F32.A Depression, unspecified; Z89.512 Acquired absence of left leg below knee; Z89.511 Acquired absence of right leg below knee; G25.2 Other specified forms of tremor; R13.10 Dysphagia, unspecified; I50.30 Unspecified diastolic (congestive) heart failure; I13.0 Hypertensive heart and chronic kidney disease with heart failure and stage 1 through stage 4 chronic kidney disease, or unspecified chronic kidney disease; G47.33 Obstructive sleep apnea (adult) (pediatric); I48.20 Chronic atrial fibrillation, unspecified; Z79.4 Long term (current) use of insulin
CPT/HCPCS: 36415; 80048; 80053; 82805; 82962; 85027; 87635; 93005; 94640; 99285; 70450; 71046; 80197; 81003; 81015; 83735; 84443; 84484; 85025; 86140; 93010; 94664; 99223; 99239; G0378; J1644; J3490; J7517

== ENCOUNTER 2023-02-09 04:20 | Outpatient (CLI) | payer MEDICARE, OTHER, SELFPAY ==
[2023-02-09 13:04] LABS: Bilirubin Negative (Negative); Blood Negative (Negative); Clarity Clear (Clear); Glucose 100 mg/dL (Negative); Ketones Negative (Negative); Leukocyte Esterase Negative (Negative); Nitrite Negative (Negative); Urobilinogen 0.2 mg/dL (Up to 0.2)
[2023-02-09 13:04] LABS: Abs Immature Grans 0.02 10^3/uL (0.0-0.06); Absolute Basophil Count 0.06 10^3/uL (0.0-0.2); Absolute Eosinophil Count 0.31 10^3/uL (0.0-0.7); Absolute Lymphocyte Count 1.97 10^3/uL (1.2-3.4); Absolute Monocyte Count 0.68 10^3/uL (0.1-0.8); Absolute Neutrophil Count 3.98 10^3/uL (1.2-6.7); Basophils % 0.9; Eosinophils % 4.4; HCT 28.4 % (40.0-50.0); HGB 9.1 g/dL (13.5-17.5); Immature Grans % 0.3; Lymphocytes % 28.1; MCH 31.4 pg (27.0-33.0); MCV 98 fL (80-95); MPV 8.5 fL (8.0-11.0); Monocytes % 9.7; Neutrophils % 56.6; Platelet Count 206 10^3/uL (130-400); RDW-SD 49.4 fL; WBC 7.02 10^3/uL (4.4-10.8)
[2023-02-09 13:25] LABS: Bacteria Moderate HPF (Negative); C & S Indicated? Yes; Crystals Negative HPF (Negative); Epithelial Cells Negative HPF (Negative); Mucus Negative (Negative); WBC 0-2 HPF (0-5)
[2023-02-09 13:40] LABS: Cholesterol 121 mg/dL (<200)
[2023-02-09 13:40] LABS: COMMENT (LAB VIEW ONLY) 71.76 mg/dL; PROTEIN 287.1 mg/dL
[2023-02-09 13:43] LABS: Iron 65 ug/dL (65-175); Total Iron Binding Capacity 192 ug/dL (250-450); Transferrin Sat 34 % (20-55)
[2023-02-09 13:50] LABS: Hemoglobin A1C 6.9 % (<5.7)
[2023-02-09 13:53] LABS: ALT 15 U/L (16-63); AST 10 U/L (15-37); Alkaline Phosphatase 132 U/L (46-116); Anion Gap 8.4 mmol/L (3-11); BUN 55 mg/dL (7-18); Bilirubin, Total 0.3 mg/dL (0.2-1.0); CO2 28.6 mmol/L (21.0-32.0); Calcium 10.1 mg/dL (8.5-10.1); Chloride 106 mmol/L (98-107); Estimated GFR 11.27 (mL/min/1.73m2); Ferritin 148 ng/mL (26-388); Glucose 121 mg/dL (74-106); PHOSPHORUS 3.9 mg/dL (2.6-4.7); Potassium 4.2 mmol/L (3.5-5.1); Sodium 143 mmol/L (136-145); Total Protein 7.5 g/dL (6.4-8.2); Uric Acid 7.1 mg/dL (3.5-7.2)
[2023-02-09 13:56] LABS: CREATININE 5.2 mg/dL (0.70-1.30)
[2023-02-10 13:21] LABS: Tacrolimus <2.0 ng/mL (See Note)
== END 2023-02-09 04:21 | disposition home or self-care (01) ==
LOC: LBO 04:20
PROVIDERS: PCP Family Medicine; Visit Provider Internal Medicine Nephrology
DX: Z94.0 Kidney transplant status (principal); Z79.899 Other long term (current) drug therapy
CPT/HCPCS: 36415; 80053; 80197; 81003; 81015; 82465; 82565; 82728; 83036; 83540; 83550; 83735; 84100; 84156; 84550; 85025; 87086

== ENCOUNTER 2023-02-15 08:15 | Outpatient (CLI) | payer MEDICARE, OTHER, SELFPAY ==
--- NOTE | 2023-02-15 08:15 | RT.EKG_ITS ---
APPROVED REPORT Exam: Resting ECG Reason for Exam: CAD Patient Location: O HR:75 bpm ECG Measurements Heart Rate 75 AXIS NV [id number] P [id number] QRSd 151 QRS -51 QT 462 T 53 QTc 517 Conclusion May be sinus with long first-degree AV block Sinus pause RBBB and LAFB...QRSd >120mS, axis(-40,240) Probable left ventricular hypertrophy...(RaVL+SV3)xQRSd >280
== END 2023-02-15 08:16 | disposition home or self-care (01) ==
LOC: DI.CARD 08:16
PROVIDERS: PCP Family Medicine; Visit Provider Internal Medicine Cardiovascular Disease
DX: I25.10 Atherosclerotic heart disease of native coronary artery without angina pectoris (principal)
CPT/HCPCS: 93010

== ENCOUNTER → 2023-02-15 13:43 | Outpatient (BNVA) | payer MEDICARE, OTHER, SELFPAY | PROVIDERS: PCP Family Medicine; Referring Provider Family Medicine; Visit Provider Internal Medicine Cardiovascular Disease | DX: I44.0 Atrioventricular block, first degree (principal); I12.9 Hypertensive chronic kidney disease with stage 1 through stage 4 chronic kidney disease, or unspecified chronic kidney disease; Z94.0 Kidney transplant status; N18.9 Chronic kidney disease, unspecified | CPT/HCPCS: 93005; 99203; 99214 ==

== ENCOUNTER 2023-03-09 02:54 | Outpatient (CLI) | payer MEDICARE, OTHER, SELFPAY ==
[2023-03-09 11:24] LABS: Abs Immature Grans 0.03 10^3/uL (0.0-0.06); Absolute Basophil Count 0.03 10^3/uL (0.0-0.2); Absolute Lymphocyte Count 1.43 10^3/uL (1.2-3.4); Absolute Monocyte Count 0.52 10^3/uL (0.1-0.8); Absolute Neutrophil Count 3.85 10^3/uL (1.2-6.7); Basophils % 0.5; Eosinophils % 3.3; HCT 25.9 % (40.0-50.0); HGB 8.2 g/dL (13.5-17.5); Immature Grans % 0.5; Lymphocytes % 23.6; MCH 30.7 pg (27.0-33.0); MCHC 31.7 % (32.0-36.0); MCV 97 fL (80-95); MPV 8.2 fL (8.0-11.0); Monocytes % 8.6; Neutrophils % 63.5; Platelet Count 152 10^3/uL (130-400); RBC 2.67 10^6/uL (4.36-5.78); RDW 14.2 % (11.8-14.1); Reticulocyte 2.6 % (0.5-2.4); WBC 6.06 10^3/uL (4.4-10.8)
[2023-03-09 11:27] LABS: Bilirubin Negative (Negative); Blood Negative (Negative); Clarity Clear (Clear); Glucose 100 mg/dL (Negative); Ketones Negative (Negative); Leukocyte Esterase Negative (Negative); Nitrite Negative (Negative); Urobilinogen 0.2 mg/dL (Up to 0.2)
[2023-03-09 11:39] LABS: COMMENT (LAB VIEW ONLY) 81.92 mg/dL; Epithelial Cells Rare HPF (Negative); PROTEIN 254.4 mg/dL; RBC Negative HPF (0-2); WBC Negative HPF (0-5)
[2023-03-09 11:40] LABS: Bacteria Negative HPF (Negative); C & S Indicated? No; Casts 0-2 Hyaline LPF (Negative); Crystals Negative HPF (Negative); Mucus Negative (Negative)
[2023-03-09 11:53] LABS: ALT 14 U/L (16-63); AST 14 U/L (15-37); Albumin 2.6 g/dL (3.4-5.0); Alkaline Phosphatase 112 U/L (46-116); Anion Gap 10.3 mmol/L (3-11); BUN 50 mg/dL (7-18); Bilirubin, Total 0.3 mg/dL (0.2-1.0); CO2 26.7 mmol/L (21.0-32.0); Calcium 9.3 mg/dL (8.5-10.1); Chloride 108 mmol/L (98-107); Estimated GFR 10.77 (mL/min/1.73m2); Ferritin 141 ng/mL (26-388); Glucose 191 mg/dL (74-106); Magnesium 1.5 mg/dL (1.8-2.4); Sodium 145 mmol/L (136-145); Total Protein 7.3 g/dL (6.4-8.2)
[2023-03-09 11:58] LABS: CREATININE 5.4 mg/dL (0.70-1.30)
[2023-03-09 12:02] LABS: Iron 55 ug/dL (65-175); Total Iron Binding Capacity 163 ug/dL (250-450); Transferrin Sat 34 % (20-55)
[2023-03-09 12:03] LABS: Cholesterol 106 mg/dL (<200)
[2023-03-09 12:13] LABS: Uric Acid 8.1 mg/dL (3.5-7.2)
[2023-03-10 13:06] LABS: Tacrolimus <2.0 ng/mL (See Note)
== END 2023-03-09 02:55 | disposition home or self-care (01) ==
LOC: LBO 02:54
PROVIDERS: PCP Family Medicine; Visit Provider Internal Medicine Hematology & Oncology
DX: Z94.0 Kidney transplant status (principal); Z79.899 Other long term (current) drug therapy; Z29.8 Encounter for other specified prophylactic measures; D63.1 Anemia in chronic kidney disease; N18.4 Chronic kidney disease, stage 4 (severe); E11.65 Type 2 diabetes mellitus with hyperglycemia; Z79.4 Long term (current) use of insulin
CPT/HCPCS: 36415; 80053; 80197; 81003; 81015; 82465; 82565; 82728; 83540; 83550; 83735; 84100; 84156; 84550; 85025; 85045

== ENCOUNTER 2023-04-06 02:48 | Outpatient (CLI) | payer MEDICARE, OTHER, SELFPAY ==
[2023-04-06 12:46] LABS: Abs Immature Grans 0.01 10^3/uL (0.0-0.06); Absolute Basophil Count 0.04 10^3/uL (0.0-0.2); Absolute Eosinophil Count 0.27 10^3/uL (0.0-0.7); Absolute Lymphocyte Count 1.72 10^3/uL (1.2-3.4); Absolute Monocyte Count 0.59 10^3/uL (0.1-0.8); Basophils % 0.6; Eosinophils % 4.2; HCT 26.4 % (40.0-50.0); HGB 8.3 g/dL (13.5-17.5); Immature Grans % 0.2; Lymphocytes % 26.7; MCH 31.3 pg (27.0-33.0); MCHC 31.4 % (32.0-36.0); MCV 100 fL (80-95); MPV 8.3 fL (8.0-11.0); Monocytes % 9.2; Neutrophils % 59.1; Platelet Count 175 10^3/uL (130-400); RBC 2.65 10^6/uL (4.36-5.78); RDW 14.3 % (11.8-14.1); RDW-SD 51.6 fL; Reticulocyte 2.5 % (0.5-2.4); WBC 6.43 10^3/uL (4.4-10.8)
[2023-04-06 12:50] LABS: Bilirubin Negative (Negative); Blood Negative (Negative); Clarity Sl Cloudy (Clear); Glucose 100 mg/dL (Negative); Ketones Negative (Negative); Leukocyte Esterase Negative (Negative); Nitrite Negative (Negative); Urobilinogen 0.2 mg/dL (Up to 0.2); pH 6.5 (5-8)
[2023-04-06 13:04] LABS: Hemoglobin A1C 6.7 % (<5.7)
[2023-04-06 13:05] LABS: Bacteria Moderate HPF (Negative); C & S Indicated? Yes; Casts Negative LPF (Negative); Crystals Negative HPF (Negative); Epithelial Cells Rare HPF (Negative); Mucus Negative (Negative); RBC 0-2 HPF (0-2); WBC 0-2 HPF (0-5)
[2023-04-06 13:23] LABS: ALT 15 U/L (16-63); AST 15 U/L (15-37); Albumin 2.9 g/dL (3.4-5.0); Alkaline Phosphatase 107 U/L (46-116); Anion Gap 8.1 mmol/L (3-11); BUN 43 mg/dL (7-18); Bilirubin, Total 0.3 mg/dL (0.2-1.0); CO2 25.9 mmol/L (21.0-32.0); Calcium 9.5 mg/dL (8.5-10.1); Chloride 105 mmol/L (98-107); Estimated GFR 10.53 (mL/min/1.73m2); Glucose 148 mg/dL (74-106); Magnesium 1.7 mg/dL (1.8-2.4); PHOSPHORUS 3.7 mg/dL (2.6-4.7); Potassium 4.7 mmol/L (3.5-5.1); Sodium 139 mmol/L (136-145); Total Protein 7.8 g/dL (6.4-8.2); Uric Acid 7.8 mg/dL (3.5-7.2)
[2023-04-06 13:30] LABS: CREATININE 5.5 mg/dL (0.70-1.30)
[2023-04-06 13:40] LABS: Iron 44 ug/dL (65-175); Total Iron Binding Capacity 180 ug/dL (250-450); Transferrin Sat 24 % (20-55)
[2023-04-06 14:03] LABS: Ferritin 131 ng/mL (26-388)
[2023-04-06 14:13] LABS: COMMENT (LAB VIEW ONLY) 62.11 mg/dL; PROTEIN 228.6 mg/dL; Prot/Crea Ur Ratio 3.68
[2023-04-07 14:33] LABS: Tacrolimus <2.0 ng/mL (See Note)
== END 2023-04-06 02:49 | disposition home or self-care (01) ==
LOC: LBO 02:48
PROVIDERS: PCP Family Medicine; Visit Provider Internal Medicine Nephrology
DX: N18.4 Chronic kidney disease, stage 4 (severe) (principal); E11.65 Type 2 diabetes mellitus with hyperglycemia; Z79.4 Long term (current) use of insulin; D63.1 Anemia in chronic kidney disease; Z94.0 Kidney transplant status; Z79.899 Other long term (current) drug therapy; Z29.8 Encounter for other specified prophylactic measures
CPT/HCPCS: 36415; 80053; 80197; 81003; 81015; 82565; 82728; 83036; 83540; 83550; 83735; 84100; 84156; 84550; 85025; 85045; 87086

== ENCOUNTER 2023-04-28 04:06 | Outpatient (CLI) | payer MEDICARE, OTHER, SELFPAY ==
[2023-04-28 12:33] LABS: Abs Immature Grans 0.02 10^3/uL (0.0-0.06); Absolute Basophil Count 0.05 10^3/uL (0.0-0.2); Absolute Eosinophil Count 0.25 10^3/uL (0.0-0.7); Absolute Lymphocyte Count 1.81 10^3/uL (1.2-3.4); Absolute Monocyte Count 0.58 10^3/uL (0.1-0.8); Absolute Neutrophil Count 3.74 10^3/uL (1.2-6.7); Basophils % 0.8; Eosinophils % 3.9; HCT 25.9 % (40.0-50.0); HGB 8.2 g/dL (13.5-17.5); Immature Grans % 0.3; Lymphocytes % 28.1; MCH 30.9 pg (27.0-33.0); MCHC 31.7 % (32.0-36.0); MCV 98 fL (80-95); MPV 8.3 fL (8.0-11.0); Neutrophils % 57.9; Platelet Count 182 10^3/uL (130-400); RBC 2.65 10^6/uL (4.36-5.78); RDW 13.5 % (11.8-14.1); RDW-SD 48.2 fL; WBC 6.45 10^3/uL (4.4-10.8)
[2023-04-28 12:40] LABS: Hemoglobin A1C 6.8 % (<5.7)
[2023-04-28 12:41] LABS: Bilirubin Negative (Negative); Blood Trace-intact (Negative); Clarity Clear (Clear); Glucose 250 mg/dL (Negative); Ketones Negative (Negative); Leukocyte Esterase Negative (Negative); Nitrite Negative (Negative); Urobilinogen 0.2 mg/dL (Up to 0.2)
[2023-04-28 12:49] LABS: Bacteria Rare HPF (Negative); Crystals Negative HPF (Negative); Epithelial Cells Rare HPF (Negative); RBC 0-2 HPF (0-2)
[2023-04-28 12:50] LABS: C & S Indicated? Yes; Casts 3-5 Hyaline LPF (Negative); Mucus Negative (Negative)
[2023-04-28 12:56] LABS: ALT 12 U/L (16-63); AST 10 U/L (15-37); Alkaline Phosphatase 120 U/L (46-116); Anion Gap 9.9 mmol/L (3-11); BUN 54 mg/dL (7-18); Bilirubin, Total 0.3 mg/dL (0.2-1.0); CO2 25.1 mmol/L (21.0-32.0); Calcium 10.3 mg/dL (8.5-10.1); Chloride 104 mmol/L (98-107); Estimated GFR 10.53 (mL/min/1.73m2); Glucose 105 mg/dL (74-106); Magnesium 1.8 mg/dL (1.8-2.4); PHOSPHORUS 4.4 mg/dL (2.6-4.7); Potassium 4.4 mmol/L (3.5-5.1); Sodium 139 mmol/L (136-145); Total Protein 8.2 g/dL (6.4-8.2); Uric Acid 6.9 mg/dL (3.5-7.2)
[2023-04-28 12:57] LABS: COMMENT (LAB VIEW ONLY) 61.15 mg/dL; PROTEIN 293.7 mg/dL
[2023-04-28 12:59] LABS: Cholesterol 117 mg/dL (<200)
[2023-04-28 13:18] LABS: CREATININE 5.5 mg/dL (0.70-1.30)
[2023-04-29 13:47] LABS: Tacrolimus <2.0 ng/mL (See Note)
== END 2023-04-28 04:07 | disposition home or self-care (01) ==
LOC: LBO 04:06
PROVIDERS: PCP Family Medicine; Visit Provider Internal Medicine Nephrology
DX: E11.65 Type 2 diabetes mellitus with hyperglycemia; Z79.4 Long term (current) use of insulin; Z79.899 Other long term (current) drug therapy; Z94.0 Kidney transplant status; Z94.83 Pancreas transplant status
CPT/HCPCS: 36415; 80053; 85027; 80197; 81003; 81015; 82465; 82565; 83036; 83735; 84100; 84156; 84550; 85025; 85045; 87086

== ENCOUNTER 2023-06-01 01:25 | Outpatient (CLI) | payer MEDICARE, OTHER, SELFPAY ==
[2023-06-01 12:58] LABS: Abs Immature Grans 0.01 10^3/uL (0.0-0.06); Absolute Basophil Count 0.03 10^3/uL (0.0-0.2); Absolute Eosinophil Count 0.19 10^3/uL (0.0-0.7); Absolute Lymphocyte Count 1.59 10^3/uL (1.2-3.4); Absolute Monocyte Count 0.55 10^3/uL (0.1-0.8); Absolute Neutrophil Count 3.58 10^3/uL (1.2-6.7); Basophils % 0.5; Eosinophils % 3.2; HGB 7.9 g/dL (13.5-17.5); Immature Grans % 0.2; Lymphocytes % 26.7; MCH 30.9 pg (27.0-33.0); MCHC 30.4 % (32.0-36.0); MCV 102 fL (80-95); MPV 8.1 fL (8.0-11.0); Monocytes % 9.2; Neutrophils % 60.2; Platelet Count 154 10^3/uL (130-400); RBC 2.56 10^6/uL (4.36-5.78); RDW 14.7 % (11.8-14.1); RDW-SD 53.1 fL; Reticulocyte 2.7 % (0.5-2.4); WBC 5.95 10^3/uL (4.4-10.8)
[2023-06-01 13:00] LABS: Bilirubin Negative (Negative); Blood Negative (Negative); Clarity Clear (Clear); Glucose 100 mg/dL (Negative); Ketones Negative (Negative); Leukocyte Esterase Negative (Negative); Nitrite Negative (Negative); Urobilinogen 0.2 mg/dL (Up to 0.2)
[2023-06-01 13:06] LABS: Bacteria Negative HPF (Negative); C & S Indicated? No; Casts Negative LPF (Negative); Crystals Negative HPF (Negative); Epithelial Cells Rare HPF (Negative); Mucus Trace (Negative); RBC 0-2 HPF (0-2); WBC 0-2 HPF (0-5)
[2023-06-01 13:12] LABS: Hemoglobin A1C 5.8 % (<5.7)
[2023-06-01 13:20] LABS: ALT 19 U/L (16-63); AST 15 U/L (15-37); Alkaline Phosphatase 114 U/L (46-116); Anion Gap 7.9 mmol/L (3-11); BUN 54 mg/dL (7-18); Bilirubin, Total 0.3 mg/dL (0.2-1.0); CO2 27.1 mmol/L (21.0-32.0); Chloride 106 mmol/L (98-107); Cholesterol 103 mg/dL (<200); Estimated GFR 9.62 (mL/min/1.73m2); Glucose 131 mg/dL (74-106); Iron 39 ug/dL (65-175); Magnesium 2.4 mg/dL (1.8-2.4); PHOSPHORUS 4.8 mg/dL (2.6-4.7); Potassium 5.3 mmol/L (3.5-5.1); Sodium 141 mmol/L (136-145); Total Iron Binding Capacity 185 ug/dL (250-450); Transferrin Sat 21 % (20-55); Uric Acid 6.6 mg/dL (3.5-7.2)
[2023-06-01 13:33] LABS: CREATININE 5.9 mg/dL (0.70-1.30)
[2023-06-01 13:57] LABS: Ferritin 168 ng/mL (26-388)
[2023-06-01 14:43] LABS: COMMENT (LAB VIEW ONLY) 67.19 mg/dL; Prot/Crea Ur Ratio 3.95
[2023-06-02 13:50] LABS: Tacrolimus <2.0 ng/mL (See Note)
== END 2023-06-01 01:26 | disposition home or self-care (01) ==
LOC: LBO 01:26
PROVIDERS: PCP Family Medicine; Visit Provider Internal Medicine Hematology & Oncology
DX: D64.9 Anemia, unspecified (principal); Z79.899 Other long term (current) drug therapy; E11.65 Type 2 diabetes mellitus with hyperglycemia; Z79.4 Long term (current) use of insulin; N18.4 Chronic kidney disease, stage 4 (severe); Z29.89 Encounter for other specified prophylactic measures; Z94.0 Kidney transplant status
CPT/HCPCS: 80053; 80197; 81003; 81015; 82465; 82565; 82728; 83036; 83540; 83550; 83735; 84100; 84156; 84550; 85025; 85045

== ENCOUNTER 2023-06-29 02:39 | Outpatient (CLI) | payer MEDICARE, OTHER, SELFPAY ==
[2023-06-29 11:09] LABS: Abs Immature Grans 0.02 10^3/uL (0.0-0.06); Absolute Basophil Count 0.03 10^3/uL (0.0-0.2); Absolute Eosinophil Count 0.24 10^3/uL (0.0-0.7); Absolute Lymphocyte Count 1.36 10^3/uL (1.2-3.4); Absolute Monocyte Count 0.48 10^3/uL (0.1-0.8); Absolute Neutrophil Count 3.69 10^3/uL (1.2-6.7); Basophils % 0.5; Eosinophils % 4.1; HCT 27.3 % (40.0-50.0); HGB 8.4 g/dL (13.5-17.5); Immature Grans % 0.3; Lymphocytes % 23.4; MCH 31.2 pg (27.0-33.0); MCHC 30.8 % (32.0-36.0); MCV 102 fL (80-95); MPV 8.2 fL (8.0-11.0); Monocytes % 8.2; Neutrophils % 63.5; Platelet Count 142 10^3/uL (130-400); RBC 2.69 10^6/uL (4.36-5.78); RDW 14.7 % (11.8-14.1); RDW-SD 53.7 fL; Reticulocyte 2.6 % (0.5-2.4); WBC 5.82 10^3/uL (4.4-10.8)
[2023-06-29 11:10] LABS: Bilirubin Negative (Negative); Blood Negative (Negative); Clarity Clear (Clear); Glucose 100 mg/dL (Negative); Ketones Negative (Negative); Leukocyte Esterase Negative (Negative); Nitrite Negative (Negative); Urobilinogen 0.2 mg/dL (Up to 0.2)
[2023-06-29 11:14] LABS: WBC 0-2 HPF (0-5)
[2023-06-29 11:15] LABS: Bacteria Few HPF (Negative); C & S Indicated? Yes; Casts Negative LPF (Negative); Crystals Negative HPF (Negative); Epithelial Cells Rare HPF (Negative); Mucus Negative (Negative); RBC 0-2 HPF (0-2)
[2023-06-29 11:21] LABS: COMMENT (LAB VIEW ONLY) 65.47 mg/dL; PROTEIN 292.9 mg/dL; Prot/Crea Ur Ratio 4.47
[2023-06-29 11:27] LABS: ALT 14 U/L (16-63); AST 12 U/L (15-37); Alkaline Phosphatase 122 U/L (46-116); Anion Gap 7.3 mmol/L (3-11); BUN 49 mg/dL (7-18); Bilirubin, Total 0.2 mg/dL (0.2-1.0); CO2 28.7 mmol/L (21.0-32.0); Calcium 9.9 mg/dL (8.5-10.1); Chloride 104 mmol/L (98-107); Estimated GFR 9.62 (mL/min/1.73m2); Glucose 169 mg/dL (74-106); Magnesium 2.4 mg/dL (1.8-2.4); PHOSPHORUS 4.9 mg/dL (2.6-4.7); Potassium 4.9 mmol/L (3.5-5.1); Sodium 140 mmol/L (136-145); Uric Acid 7.3 mg/dL (3.5-7.2)
[2023-06-29 11:32] LABS: CREATININE 5.9 mg/dL (0.70-1.30)
[2023-06-29 11:52] LABS: Iron 53 ug/dL (65-175); Total Iron Binding Capacity 200 ug/dL (250-450); Transferrin Sat 27 % (20-55)
[2023-06-29 11:55] LABS: Ferritin 128 ng/mL (26-388)
[2023-06-29 17:34] LABS: Cholesterol 107 mg/dL (<200)
[2023-06-30 13:07] LABS: Tacrolimus <2.0 ng/mL (See Note)
== END 2023-06-29 02:40 | disposition home or self-care (01) ==
LOC: LBO 02:39
PROVIDERS: PCP Family Medicine; Visit Provider Internal Medicine Hematology & Oncology
DX: N18.4 Chronic kidney disease, stage 4 (severe) (principal); Z94.0 Kidney transplant status
CPT/HCPCS: 36415; 80053; 87077; 80197; 81003; 81015; 82465; 82565; 82728; 83540; 83550; 83735; 84100; 84156; 84550; 85025; 85045; 87086; 87186

== ENCOUNTER 2023-07-08 14:05 | Emergency (ER) | payer MEDICARE, OTHER, SELFPAY ==
[2023-07-08 14:08] VITALS: BP 167/55; PULSE 77; RESP 16; TEMP 36.3; O2SAT 100
--- NOTE | 2023-07-08 14:48 | ED.GENADUL_ITS ---
Discharge Plan Discharge Details Chief Complaint: ThroatFB Primary Care Provider: Violetta Sanford ED Provider: Drake Escobar Home Meds and New Rx's Prescriptions: No Action folic acid 1 mg tablet 1 mg PO DAILY mycophenolate mofetil [CellCept] 250 mg capsule 500 mg PO BID calcitriol 0.25 mcg capsule 0.5 mcg PO DAILY nystatin 100,000 unit/mL suspension 500,000 unit buccal QID Qty: 480 0RF Rx Instructions: administer 1/2 of dose in each side of the mouth, hold in mouth as long as possible, then spit aspirin [Belgica Low Dose Aspirin] 81 MG tablet,delayed release (DR/EC) 81 mg PO DAILY omeprazole [Prilosec] 40 MG capsule,delayed release(DR/EC) 40 mg PO DAILY montelukast 10 MG tablet 10 mg PO DAILY multivitamin [Daily Multi-Vitamin] 1 EACH tablet 1 ea PO DAILY hydralazine 100 mg tablet 100 mg PO TID metoprolol succinate 50 mg tablet extended release 24 hr 50 mg PO BID fluticasone propionate 50 mcg/actuation spray,suspension 1 spray intranasal DAILY Rx Instructions: administer into each nostril vitamin B complex [B Complex-Vitamin B12] Tablet 1 tab PO BID tacrolimus [Prograf] 1 mg capsule 1 mg PO Q12H sodium bicarbonate 650 mg tablet 650 mg PO BID PRN primidone 50 mg tablet 75 mg PO BID Rx Instructions: noon and am primidone 50 mg tablet 50 mg PO QHS Rx Instructions: at night Levemir FlexTouch U100 Insulin 100 unit/mL (3 mL) insulin pen See Rx Instructions .ROUTE .COMPLEX Rx Instructions: 50 units and 35 untis at night albuterol sulfate [Ventolin HFA] 90 mcg/actuation Hfa Aerosol Inhaler 90 mcg Inhalation 4-6XD insulin aspart U-100 [Novolog FlexPen U-100 Insulin] 100 unit/mL Insulin Pen 0 units subcut 0800,1200,1700 Qty: 0 0RF Rx Instructions: sliding scale atorvastatin [Lipitor] 20 MG tablet 1 tab PO DAILY amlodipine 5 mg Tablet 5 mg PO DAILY Qty: 30 2RF Aranesp (in polysorbate) 200 mcg/mL Solution 200 mcg SUBCUT QWEEK Inhaler, Assist Devices [Pocket Chamber] 1 ea miscellaneous DIRECTED Qty: 0 0RF Medical Decision Making Patient presenting to the emergency department for chief complaint of food stuck in his throat. Patient reports just prior to arrival he was eating some spareribs and felt like a piece of the meat got stuck in the lower portion of his throat. He attempted to drink some soda and water to remove this but was unable to pass sensation of stuck food. Patient does state history of dysphagia with need for scope to remove food bolus. Patients other past medical history is significant COPD, obstructive sleep apnea, GERD, obesity. Patient exam does show may be slightly muffled voice, no drooling, no stridor, clear lung sounds, no obvious visible abnormality on HEENT exam. Will attempt effervescent tablets/granules to see if this can remove bolus otherwise patient is in stable condition with no emergent airway concern at this time. Patient unable to tolerate clear liquids let alone effervescent granules. Given that this is not a radiopaque foreign body and that patient has had to have endoscopy performed to remove foldable bolus in the past we will contact general surgery. Will monitor patient closely for any acute worsening or emergent airway concern. Spoke with surgeon who stated he would come in and evaluate patient for upper endoscopy. HPI General Mode of arrival: wheelchair . Date/Time Provider Initiated Documentation: 07/08/23 14:10 . Limitations to Documentation: no limitations . Information obtained by: patient, family and RN notes reviewed . History of Present Illness 68 year old M presents to the emergency department with the chief complaint of Food bolus, described as moderate and similar to prior episodes, Patient started experiencing this hour(s) (<1) and it has been constant. No relieving factors improve symptom(s), Eating worsens symptoms . Patient notes no other symptoms.. Patient did receive the following treatments prior to arrival, other (soda/cola) Related Data Home Medications Medication Instructions Recorded Confirmed aspirin 81 mg tablet,delayed 81 mg PO DAILY 10/31/12 07/08/23 release (Belgica Low Dose Aspirin) montelukast 10 mg tablet 10 mg PO DAILY 10/31/12 07/08/23 omeprazole 40 mg capsule,delayed 40 mg PO DAILY 10/31/12 07/08/23 release (Prilosec) multivitamin (Daily Multi-Vitamin 1 ea PO DAILY 05/10/13 07/08/23 tablet) atorvastatin 20 mg tablet (Lipitor) 1 tab PO DAILY 02/01/17 07/08/23 albuterol sulfate 90 mcg/actuation 90 mcg inhalation 4-6XD 05/04/18 07/08/23 aerosol inhaler (Ventolin HFA) folic acid 1 mg tablet 1 mg PO DAILY 06/12/18 07/08/23 insulin aspart U-100 100 unit/mL 0 units subcut 0800,1200,1700 #0 mL 11/15/18 07/08/23 (3 mL) subcutaneous pen (Novolog FlexPen U-100 Insulin aspart) amlodipine 5 mg tablet 5 mg PO DAILY #30 tabs 08/06/19 07/08/23 fluticasone propionate 50 1 spray intranasal DAILY 09/04/20 07/08/23 mcg/actuation nasal spray,suspension hydralazine 100 mg tablet 100 mg PO TID 09/04/20 07/08/23 metoprolol succinate 50 mg 50 mg PO BID 09/04/20 07/08/23 tablet,extended release 24 hr tacrolimus 1 mg capsule, 1 mg PO Q12H 09/04/20 07/08/23 immediate-release (Prograf) vitamin B complex (B 1 tab PO BID 09/04/20 07/08/23 Complex-Vitamin B12 tablet) calcitriol 0.25 mcg capsule 0.5 mcg PO DAILY 04/14/21 07/08/23 mycophenolate mofetil 250 mg 500 mg PO BID 04/14/21 07/08/23 capsule (CellCept) darbepoetin cristy in polysorbat 200 200 mcg subcut QWEEK 01/15/23 07/08/23 mcg/mL in polysorbate injection (Aranesp) Inhaler, Assist Devices [Pocket 1 ea miscellaneous DIRECTED ##0 01/16/23 07/08/23 Chamber] primidone 50 mg tablet 50 mg PO QHS 01/24/23 07/08/23 primidone 50 mg tablet 75 mg PO BID 01/24/23 07/08/23 sodium bicarbonate 650 mg tablet 650 mg PO BID PRN 01/24/23 07/08/23 insulin detemir U-100 100 unit/mL See Rx Instructions .Route .COMPLEX 03/29/23 07/08/23 (3 mL) subcutaneous pen (Levemir FlexTouch U-100 Insulin) nystatin 100,000 unit/mL oral 500,000 unit (5 mL) buccal QID 03/29/23 07/08/23 suspension #480 mL Previous Rx's Medication Instructions Recorded insulin aspart U-100 100 unit/mL 0 units subcut 0800,1200,1700 #0 mL 11/15/18 (3 mL) subcutaneous pen (Novolog FlexPen U-100 Insulin aspart) amlodipine 5 mg tablet 5 mg PO DAILY #30 tabs 08/06/19 Inhaler, Assist Devices [Pocket 1 ea miscellaneous DIRECTED ##0 01/16/23 Chamber] nystatin 100,000 unit/mL oral 500,000 unit (5 mL) buccal QID 03/29/23 suspension #480 mL Allergies Allergy/AdvReac Type Severity Reaction Status Date / Time levofloxacin Allergy Mild Unknown Verified 07/08/23 14:17 sulfamethoxazole Allergy Mild Unknown Verified 07/08/23 14:17 [From Bactrim] trimethoprim [From Bactrim] Allergy Mild Unknown Verified 07/08/23 14:17 doxycycline Allergy Unknown Verified 07/08/23 14:17 clindamycin Allergy Skin Rash Verified 07/08/23 14:17 ibuprofen Allergy Verified 07/08/23 14:17 Penicillins Allergy SWELLING Verified 07/08/23 14:17 tree nut Allergy Verified 07/08/23 14:17 lisinopril AdvReac KIDNEY Verified 07/08/23 14:17 SHUT DOWN yaneth inhibitors Allergy Mild Skin Rash Uncoded 07/08/23 14:17 CATS & BIRDS AdvReac Intermediate WHEEZING Uncoded 07/08/23 14:17 General Stated Complaint: ThroatFB RADHA: 3 Review of Systems ENT Ears, Nose, Mouth, and Throat: Reports as per HPI, Reports odynophagia and Reports throat swelling Cardiovascular Cardiovascular: Denies dyspnea Respiratory Respiratory: Denies dyspnea, Denies stridor and Denies wheezing Gastrointestinal Gastrointestinal: Reports odynophagia and Denies vomiting Allergic/Immunologic Allergic/Immunologic: Reports throat swelling and Denies wheezing PFSH All Active Problems Abnormal electrocardiogram (Acute) Phantom pain (Acute) Tremor (Acute) per pCP treated with primidone RH HTN (hypertension) (Chronic) Diabetes mellitus (Chronic) Edentulous (Acute) Esophageal foreign body (Acute) Food impaction of esophagus (Acute) Macrocytic anemia (Acute) Gastroparesis diabeticorum (Acute) Kidney transplant recipient (Acute) Chronic kidney disease (Chronic) Hypertension (Chronic) Hyperlipidemia (Chronic) CAD (coronary artery disease) (Chronic) GERD (gastroesophageal reflux disease) (Chronic) Asthma (Chronic) Chronic anxiety (Chronic) Chronic depression (Chronic) Status post bilateral below knee amputation (Chronic) Intention tremor (Chronic) Status post appendectomy (Acute) Physical medicine and rehabilitation procedures (Acute 06/27/13) Dysphagia (Acute) Infection of amputation stump of right lower extremity (Acute) CHF (congestive heart failure) (Acute) Diastolic CHF (Acute) CAP (community acquired pneumonia) (Acute) Acute kidney injury superimposed on chronic kidney disease (Acute) Uncontrolled insulin dependent diabetes mellitus (Acute) Ambulatory dysfunction (Acute) Sepsis (Acute) MELISSA (obstructive sleep apnea) (Chronic) Left lower lobe pneumonia (Acute) Wenckebach second degree AV block (Acute) Fluid level behind tympanic membrane of left ear (Acute) Sensory hearing loss, bilateral (Acute) Tinnitus, bilateral (Acute) Osteoma of ear canal (Acute) Atrial fibrillation (Chronic) per pcp Pt had one episode 11/10 RH Kidney transplant recipient (Chronic) 2005 Medical History Tubular adenoma of colon (02/01/17) Abscess of axilla (05/11/13) Personal history of allergy to other antibiotic agent Vitamin B 12 deficiency Adenomatous colon polyp History of colon polyps Lumbar back pain Erectile dysfunction Anxiety and depression Hydrocele Intention tremor Tricuspid insufficiency Obesity Stage 3 severe COPD by GOLD classification Hyperlipidemia Sciatica GERD (gastroesophageal reflux disease) MELISSA (obstructive sleep apnea) per PCP not using CPAP 01/20/23 RH Surgical History History of bilateral cataract extraction 1999 H/O sinus surgery 2010 History of cardiac catheterization 2005 History of appendectomy 2012 History of colonoscopy (~10/2020) History of below-knee amputation of both lower extremities 2000 and 2010 Hx of amputation below knee Kidney transplant recipient 01/08/2014 EGD - MAC (04/02/16) Colonoscopy - MAC (02/01/17) Family History Father , cancer at 64 No problems noted. Brother , SM Cell Cancer No problems noted. Sister Breast cancer Mother No problems noted. Social History Smoking/Tobacco Use Status: Former Tobacco Use Quit Date: 07/25/90 Tobacco: How many years used: 15 Smoking risk assessment performed?: Yes Alcohol Intake: never Drug use: Never Substance use type: does not use Household members: spouse What is your relationship status?: Panel score (0-1 are the most socially isolated patients): 1 Do you feel safe at home: Yes Do you feel safe in your relationship?: Yes Exam Const General: cooperative, comfortable and no acute distress Orientation: alert and awake HENMT Head: normal to inspection, normocephalic and atraumatic Ears: hearing grossly normal bilaterally General nose exam: external nose normal Face and sinus: no erythema Mouth: oral mucosae normal, no drooling, muffled voice and no trismus Throat: posterior oropharynx normal Neck Neck: normal visual inspection, full ROM, no meningeal signs, trachea midline and supple Resp Effort & Inspection: normal respiratory effort and able to speak in complete sentences Auscultation: clear to auscultation bilaterally Cardio Rate: regular rate Rhythm: regular rhythm Heart Sounds: S1 normal, S2 normal and normal S1 and S2 Neuro General: patient alert, patient awake and patient oriented x3 Cognition: normal cognition Speech: speech normal Course Vital Signs Vital signs: Vital Signs Temperature 36.3 C L 07/08/23 14:08 Pulse 77 07/08/23 14:08 Respiratory Rate 16 07/08/23 14:08 Blood Pressure 167/55 H 07/08/23 14:08 Pulse Oximetry 100 07/08/23 14:08 Temperature 36.3 C L 07/08/23 14:08 Temperature Source Tympanic 07/08/23 14:08 Pulse 77 07/08/23 14:08 Respiratory Rate 16 07/08/23 14:08 Blood Pressure 167/55 H 07/08/23 14:08 Blood Pressure Position Sitting 07/08/23 14:08 Pulse Oximetry 100 07/08/23 14:08 Oxygen Delivery Method Room Air 07/08/23 14:08 Oxygen Flow Rate 0 07/08/23 14:08 Pain Level 2 07/08/23 14:08 Sign Out Sign Out Data: Sign Out Comment: Patient signed out pending general surgeon evaluation for food bolus and need of scope for further evaluation. Patient stable at time of signout Last updated by Drake Escobar NP at 07/08/23 15:40
[2023-07-08 16:21] VITALS: BP 181/77; PULSE 78; RESP 18; O2SAT 98
--- NOTE | 2023-07-08 17:05 | NUR.NOTE ---
Referral given to Care Management to [facility], for dysphagia, establish care, NED. Nursing Note:
== END 2023-07-08 16:21 | disposition home or self-care (01) ==
PROVIDERS: Emergency Provider Physician Assistant; PCP Family Medicine
DX: T18.108A Unspecified foreign body in esophagus causing other injury, initial encounter (principal); K21.9 Gastro-esophageal reflux disease without esophagitis; G47.33 Obstructive sleep apnea (adult) (pediatric)
CPT/HCPCS: 80048; 99282; 83735; 99283

== ENCOUNTER 2023-07-27 04:28 | Outpatient (CLI) | payer MEDICARE, OTHER, SELFPAY ==
[2023-07-27 12:36] LABS: Abs Immature Grans 0.01 10^3/uL (0.0-0.06); Absolute Basophil Count 0.03 10^3/uL (0.0-0.2); Absolute Eosinophil Count 0.25 10^3/uL (0.0-0.7); Absolute Lymphocyte Count 1.53 10^3/uL (1.2-3.4); Absolute Monocyte Count 0.58 10^3/uL (0.1-0.8); Absolute Neutrophil Count 3.02 10^3/uL (1.2-6.7); Basophils % 0.6; Eosinophils % 4.6; HCT 25.7 % (40.0-50.0); HGB 7.9 g/dL (13.5-17.5); Immature Grans % 0.2; Lymphocytes % 28.2; MCH 31.1 pg (27.0-33.0); MCHC 30.7 % (32.0-36.0); MCV 101 fL (80-95); MPV 8.3 fL (8.0-11.0); Monocytes % 10.7; Neutrophils % 55.7; Platelet Count 148 10^3/uL (130-400); RBC 2.54 10^6/uL (4.36-5.78); RDW 14.2 % (11.8-14.1); Reticulocyte 2.3 % (0.5-2.4); WBC 5.42 10^3/uL (4.4-10.8)
[2023-07-27 12:45] LABS: Hypochromasia 2+
[2023-07-27 12:53] LABS: ALT 14 U/L (16-63); AST 9 U/L (15-37); Albumin 2.9 g/dL (3.4-5.0); Alkaline Phosphatase 124 U/L (46-116); Anion Gap 9.6 mmol/L (3-11); BUN 55 mg/dL (7-18); Bilirubin, Total 0.3 mg/dL (0.2-1.0); CO2 26.4 mmol/L (21.0-32.0); Chloride 103 mmol/L (98-107); Estimated GFR 9.24 (mL/min/1.73m2); Glucose 214 mg/dL (74-106); Magnesium 2.6 mg/dL (1.8-2.4); PHOSPHORUS 4.6 mg/dL (2.6-4.7); Sodium 139 mmol/L (136-145); Total Protein 7.9 g/dL (6.4-8.2); Uric Acid 6.8 mg/dL (3.5-7.2)
[2023-07-27 12:54] LABS: Bilirubin Negative (Negative); Blood Negative (Negative); Clarity Clear (Clear); Glucose 500 mg/dL (Negative); Ketones Negative (Negative); Leukocyte Esterase Negative (Negative); Nitrite Negative (Negative); Urobilinogen 0.2 mg/dL (Up to 0.2); pH 7.5 (5-8)
[2023-07-27 13:01] LABS: Bacteria Rare HPF (Negative); C & S Indicated? No; Casts Negative LPF (Negative); Crystals Negative HPF (Negative); Epithelial Cells Rare HPF (Negative); Mucus Trace (Negative); RBC 0-2 HPF (0-2); WBC 0-2 HPF (0-5)
[2023-07-27 13:07] LABS: COMMENT (LAB VIEW ONLY) 52.54 mg/dL; Prot/Crea Ur Ratio 4.35
[2023-07-27 13:11] LABS: CREATININE 6.1 mg/dL (0.70-1.30)
[2023-07-27 13:14] LABS: Cholesterol 111 mg/dL (<200)
[2023-07-27 13:27] LABS: Ferritin 129 ng/mL (26-388)
[2023-07-27 13:53] LABS: Diff Comment RBC Morph Reviewed
[2023-07-27 14:19] LABS: Iron 70 ug/dL (65-175); Total Iron Binding Capacity 183 ug/dL (250-450); Transferrin Sat 38 % (20-55)
[2023-07-28 11:39] LABS: Tacrolimus 2.5 ng/mL (See Note)
== END 2023-07-27 04:29 | disposition home or self-care (01) ==
LOC: LBO 04:28
PROVIDERS: Internal Medicine Nephrology; PCP Family Medicine; Visit Provider Internal Medicine Hematology & Oncology
DX: Z79.899 Other long term (current) drug therapy; N18.4 Chronic kidney disease, stage 4 (severe); Z94.9 Transplanted organ and tissue status, unspecified
CPT/HCPCS: 36415; 80053; 85045; 80197; 81003; 81015; 82465; 82565; 82728; 83036; 83540; 83550; 83735; 84100; 84156; 84550; 85025

== ENCOUNTER 2023-09-07 03:57 | Outpatient (CLI) | payer MEDICARE, OTHER, SELFPAY ==
[2023-09-07 12:50] LABS: Abs Immature Grans 0.01 10^3/uL (0.0-0.06); Absolute Basophil Count 0.04 10^3/uL (0.0-0.2); Absolute Eosinophil Count 0.27 10^3/uL (0.0-0.7); Absolute Lymphocyte Count 1.57 10^3/uL (1.2-3.4); Absolute Monocyte Count 0.47 10^3/uL (0.1-0.8); Absolute Neutrophil Count 2.83 10^3/uL (1.2-6.7); Basophils % 0.8; Eosinophils % 5.2; HCT 26.3 % (40.0-50.0); HGB 8.3 g/dL (13.5-17.5); Immature Grans % 0.2; Lymphocytes % 30.3; MCH 31.6 pg (27.0-33.0); MCHC 31.6 % (32.0-36.0); MCV 100 fL (80-95); MPV 8.5 fL (8.0-11.0); Monocytes % 9.1; Neutrophils % 54.4; Platelet Count 165 10^3/uL (130-400); RBC 2.63 10^6/uL (4.36-5.78); RDW 14.2 % (11.8-14.1); RDW-SD 50.5 fL; WBC 5.19 10^3/uL (4.4-10.8)
[2023-09-07 13:03] LABS: Magnesium 2.2 mg/dL (1.8-2.4); PHOSPHORUS 4.2 mg/dL (2.6-4.7)
[2023-09-07 13:04] LABS: Iron 58 ug/dL (65-175); Total Iron Binding Capacity 186 ug/dL (250-450); Transferrin Sat 31 % (20-55)
[2023-09-07 13:19] LABS: ALT 18 U/L (16-63); AST 12 U/L (15-37); Alkaline Phosphatase 113 U/L (46-116); Anion Gap 9.9 mmol/L (3-11); BUN 51 mg/dL (7-18); Bilirubin, Total 0.3 mg/dL (0.2-1.0); CO2 27.1 mmol/L (21.0-32.0); Calcium 9.7 mg/dL (8.5-10.1); Chloride 106 mmol/L (98-107); Estimated GFR 10.47 (mL/min/1.73m2); Ferritin 140 ng/mL (26-388); Glucose 189 mg/dL (74-106); Potassium 5.2 mmol/L (3.5-5.1); Sodium 143 mmol/L (136-145); Total Protein 8.1 g/dL (6.4-8.2)
[2023-09-07 13:22] LABS: Bilirubin Negative (Negative); Blood Negative (Negative); Clarity Clear (Clear); Glucose 250 mg/dL (Negative); Ketones Negative (Negative); Leukocyte Esterase Negative (Negative); Nitrite Negative (Negative); Urobilinogen 0.2 mg/dL (Up to 0.2)
[2023-09-07 13:24] LABS: CREATININE 5.5 mg/dL (0.70-1.30)
[2023-09-07 13:26] LABS: Reticulocyte 2.4 % (0.5-2.4)
[2023-09-07 13:35] LABS: COMMENT (LAB VIEW ONLY) 48.79 mg/dL; PROTEIN 212.7 mg/dL; Prot/Crea Ur Ratio 4.35
[2023-09-07 13:40] LABS: Cholesterol 112 mg/dL (<200)
[2023-09-07 13:48] LABS: Bacteria Negative HPF (Negative); Casts 0-2 Hyaline LPF (Negative); Epithelial Cells Rare HPF (Negative); RBC 0-2 HPF (0-2); WBC 0-2 HPF (0-5)
[2023-09-07 13:49] LABS: C & S Indicated? No
[2023-09-08 11:32] LABS: Tacrolimus 2.3 ng/mL (See Note)
== END 2023-09-07 03:58 | disposition home or self-care (01) ==
LOC: LBO 03:57
PROVIDERS: Internal Medicine Endocrinology, Diabetes & Metabolism; Internal Medicine Nephrology; PCP Family Medicine; Visit Provider Internal Medicine Hematology & Oncology
DX: E11.65 Type 2 diabetes mellitus with hyperglycemia (principal); N18.4 Chronic kidney disease, stage 4 (severe); D64.9 Anemia, unspecified; Z79.4 Long term (current) use of insulin; Z94.0 Kidney transplant status; Z79.899 Other long term (current) drug therapy
CPT/HCPCS: 36415; 80053; 80197; 81003; 81015; 82465; 82565; 82728; 83036; 83540; 83550; 83735; 84100; 84156; 84550; 85025; 85045

== ENCOUNTER 2023-09-21 12:46 | Outpatient (CLI) | payer MEDICARE, OTHER, SELFPAY ==
[2023-09-21 13:10] LABS: Abs Immature Grans 0.01 10^3/uL (0.0-0.06); Absolute Basophil Count 0.05 10^3/uL (0.0-0.2); Absolute Eosinophil Count 0.23 10^3/uL (0.0-0.7); Absolute Lymphocyte Count 1.83 10^3/uL (1.2-3.4); Absolute Monocyte Count 0.63 10^3/uL (0.1-0.8); Absolute Neutrophil Count 2.95 10^3/uL (1.2-6.7); Basophils % 0.9; HCT 26.6 % (40.0-50.0); HGB 8.2 g/dL (13.5-17.5); Immature Grans % 0.2; Lymphocytes % 32.1; MCH 30.8 pg (27.0-33.0); MCHC 30.8 % (32.0-36.0); MCV 100 fL (80-95); MPV 8.5 fL (8.0-11.0); Monocytes % 11.1; Neutrophils % 51.7; Platelet Count 164 10^3/uL (130-400); RBC 2.66 10^6/uL (4.36-5.78); RDW 14.8 % (11.8-14.1); RDW-SD 53.5 fL
[2023-09-21 13:23] LABS: Albumin 3.1 g/dL (3.4-5.0); BUN 56 mg/dL (7-18); Calcium 9.6 mg/dL (8.5-10.1); Chloride 106 mmol/L (98-107); Estimated GFR 10.24 (mL/min/1.73m2); Glucose 74 mg/dL (74-106); PHOSPHORUS 4.6 mg/dL (2.6-4.7); Potassium 4.7 mmol/L (3.5-5.1); Sodium 143 mmol/L (136-145); Uric Acid 7.4 mg/dL (3.5-7.2)
[2023-09-21 13:43] LABS: CREATININE 5.6 mg/dL (0.70-1.30)
[2023-09-21 14:06] LABS: Ferritin 123 ng/mL (26-388)
[2023-09-21 14:08] LABS: Iron 46 ug/dL (65-175); Total Iron Binding Capacity 205 ug/dL (250-450); Transferrin Sat 22 % (20-55)
[2023-09-21 14:24] LABS: Vitamin D 25 Total 26.3 ng/mL (30-100)
[2023-09-21 22:24] LABS: Parathyroid Hormone,Intact 81 pg/mL (19-88)
== END 2023-09-21 12:47 | disposition home or self-care (01) ==
LOC: LBO 12:47
PROVIDERS: PCP Family Medicine; Visit Provider Internal Medicine Nephrology
DX: N18.5 Chronic kidney disease, stage 5 (principal)
CPT/HCPCS: 36415; 80048; 82306; 82040; 82728; 83540; 83550; 83970; 84100; 84550; 85025

== ENCOUNTER 2023-10-19 04:42 | Outpatient (CLI) | payer MEDICARE, OTHER, SELFPAY ==
[2023-10-19 10:34] LABS: Abs Immature Grans 0.02 10^3/uL (0.0-0.06); Absolute Basophil Count 0.03 10^3/uL (0.0-0.2); Absolute Eosinophil Count 0.21 10^3/uL (0.0-0.7); Absolute Lymphocyte Count 1.54 10^3/uL (1.2-3.4); Absolute Monocyte Count 0.47 10^3/uL (0.1-0.8); Absolute Neutrophil Count 3.33 10^3/uL (1.2-6.7); Basophils % 0.5; Eosinophils % 3.8; HCT 25.5 % (40.0-50.0); HGB 7.9 g/dL (13.5-17.5); Immature Grans % 0.4; Lymphocytes % 27.5; MCH 31.2 pg (27.0-33.0); MCV 101 fL (80-95); MPV 8.5 fL (8.0-11.0); Monocytes % 8.4; Neutrophils % 59.4; Platelet Count 158 10^3/uL (130-400); RBC 2.53 10^6/uL (4.36-5.78); RDW 14.1 % (11.8-14.1); RDW-SD 51.6 fL; Reticulocyte 1.8 % (0.5-2.4)
[2023-10-19 10:35] LABS: Bilirubin Negative (Negative); Blood Negative (Negative); Clarity Clear (Clear); Glucose 100 mg/dL (Negative); Ketones Negative (Negative); Leukocyte Esterase Negative (Negative); Nitrite Negative (Negative); Urobilinogen 0.2 mg/dL (Up to 0.2)
[2023-10-19 10:48] LABS: Cholesterol 111 mg/dL (<200)
[2023-10-19 10:49] LABS: COMMENT (LAB VIEW ONLY) 52.58 mg/dL; PROTEIN 191.1 mg/dL; Prot/Crea Ur Ratio 3.63
[2023-10-19 10:52] LABS: ALT 13 U/L (16-63); AST 11 U/L (15-37); Albumin 3.2 g/dL (3.4-5.0); Alkaline Phosphatase 119 U/L (46-116); Anion Gap 10.5 mmol/L (3-11); BUN 61 mg/dL (7-18); Bilirubin, Total 0.4 mg/dL (0.2-1.0); CO2 25.5 mmol/L (21.0-32.0); Calcium 9.5 mg/dL (8.5-10.1); Chloride 104 mmol/L (98-107); Estimated GFR 9.24 (mL/min/1.73m2); Glucose 111 mg/dL (74-106); Magnesium 2.1 mg/dL (1.8-2.4); PHOSPHORUS 5.7 mg/dL (2.6-4.7); Potassium 4.4 mmol/L (3.5-5.1); Sodium 140 mmol/L (136-145); Total Protein 8.3 g/dL (6.4-8.2); Uric Acid 7.7 mg/dL (3.5-7.2)
[2023-10-19 11:01] LABS: RBC 0-2 HPF (0-2); WBC 0-2 HPF (0-5)
[2023-10-19 11:01] LABS: Ferritin 98 ng/mL (26-388)
[2023-10-19 11:02] LABS: Bacteria Rare HPF (Negative); C & S Indicated? No; Casts Negative LPF (Negative); Crystals Negative HPF (Negative); Epithelial Cells Rare HPF (Negative); Mucus Trace (Negative)
[2023-10-19 11:06] LABS: Iron 50 ug/dL (65-175); Total Iron Binding Capacity 220 ug/dL (250-450); Transferrin Sat 23 % (20-55)
[2023-10-19 11:10] LABS: Hemoglobin A1C 6.8 % (<5.7)
[2023-10-19 11:18] LABS: CREATININE 6.1 mg/dL (0.70-1.30)
[2023-10-19 17:07] LABS: HBs Antibody, Quant <3.1 mIU/mL (See Note); Hepatitis B Surface Ab Negative (See Note)
[2023-10-19 17:17] LABS: Hepatitis B Surface Ag Negative (Negative)
[2023-10-20 14:04] LABS: Tacrolimus <2.0 ng/mL (See Note)
== END 2023-10-19 04:43 | disposition home or self-care (01) ==
LOC: LBO 04:42
PROVIDERS: Internal Medicine Nephrology; PCP Family Medicine; Visit Provider Internal Medicine Nephrology
DX: Z94.0 Kidney transplant status (principal); E11.65 Type 2 diabetes mellitus with hyperglycemia
CPT/HCPCS: 36415; 80053; 86706; 87340; 80197; 81003; 81015; 82465; 82565; 82728; 83036; 83540; 83550; 83735; 84100; 84156; 84550; 85025; 85045

== ENCOUNTER 2023-10-19 11:51 | Outpatient (REF) | payer MEDICARE, OTHER, SELFPAY ==
--- NOTE | 2023-10-19 11:39 | SKI_PTH ---
PATIENT: Leroy Torres LOC: [facility] U#:[id number] AGE/SX: 68/M ROOM: RE10/19/[address]: DA Mills : 1955 BED: DIS: 10/19/2023 SPEC #: [id number] RECD: 10/19/23 15:06 STATUS: VOLODYMYR RERoberto #: [id number] ELOISE: 10/19/23 11:[address]: Iva Valladares DEPT: Surgical Specimen RECD BY: Lesa Mcgrath ENTERED: 10/19/23 15:07 SP TYPE: MAXWELL FAJARDO DR: Violetta Sanford Tissues: 1 - SKIN BIOPSY(SHAVE/PUNCH) Procedures: SKIN LEVEL 4 Comments: [id number]
== END 2023-10-19 11:52 | disposition home or self-care (01) ==
LOC: LBN 11:51
PROVIDERS: PCP Family Medicine; Visit Provider Physical Therapy Assistant
DX: C44.619 Basal cell carcinoma of skin of left upper limb, including shoulder (principal)
CPT/HCPCS: 88305

== ENCOUNTER → 2023-10-26 10:22 | Outpatient (BNVA) | payer MEDICARE, OTHER, SELFPAY | PROVIDERS: PCP Family Medicine; Referring Provider Family Medicine; Visit Provider Physical Therapy Assistant | DX: Z51.89 Encounter for other specified aftercare (principal) | CPT/HCPCS: 99213 ==

== ENCOUNTER 2023-11-16 05:05 | Outpatient (CLI) | payer MEDICARE, OTHER, SELFPAY ==
[2023-11-16 13:25] LABS: HCT 25.8 % (40.0-50.0); HGB 8.1 g/dL (13.5-17.5); MCH 30.9 pg (27.0-33.0); MCHC 31.4 % (32.0-36.0); MCV 99 fL (80-95); MPV 8.2 fL (8.0-11.0); Platelet Count 141 10^3/uL (130-400); RBC 2.62 10^6/uL (4.36-5.78); RDW 13.7 % (11.8-14.1); RDW-SD 49.1 fL; WBC 5.42 10^3/uL (4.4-10.8)
[2023-11-16 13:35] LABS: Bilirubin Negative (Negative); Blood Trace-intact (Negative); Clarity Clear (Clear); Glucose 100 mg/dL (Negative); Ketones Negative (Negative); Leukocyte Esterase Negative (Negative); Nitrite Negative (Negative); Urobilinogen 0.2 mg/dL (Up to 0.2)
[2023-11-16 13:40] LABS: Bacteria Rare HPF (Negative); C & S Indicated? No; Casts Negative LPF (Negative); Crystals Negative HPF (Negative); Epithelial Cells Rare HPF (Negative); Mucus Trace (Negative); WBC 0-2 HPF (0-5)
[2023-11-16 13:58] LABS: ALT 19 U/L (16-63); AST 11 U/L (15-37); Alkaline Phosphatase 112 U/L (46-116); Anion Gap 9.7 mmol/L (3-11); BUN 71 mg/dL (7-18); Bilirubin, Total 0.4 mg/dL (0.2-1.0); CO2 29.3 mmol/L (21.0-32.0); Calcium 9.3 mg/dL (8.5-10.1); Chloride 103 mmol/L (98-107); Estimated GFR 8.57 (mL/min/1.73m2); Glucose 160 mg/dL (74-106); PHOSPHORUS 5.1 mg/dL (2.6-4.7); Potassium 4.6 mmol/L (3.5-5.1); Sodium 142 mmol/L (136-145); Uric Acid 8.2 mg/dL (3.5-7.2)
[2023-11-16 14:06] LABS: CREATININE 6.5 mg/dL (0.70-1.30); Magnesium 2.4 mg/dL (1.8-2.4)
[2023-11-17 13:57] LABS: Tacrolimus <2.0 ng/mL (See Note)
[2023-11-17 19:33] LABS: COMMENT (LAB VIEW ONLY) 59.89 mg/dL; PROTEIN 193.5 mg/dL; Prot/Crea Ur Ratio 3.23
[2023-11-17 19:48] LABS: Cholesterol 124 mg/dL (<200)
== END 2023-11-16 05:06 | disposition home or self-care (01) ==
PROVIDERS: PCP Family Medicine; Visit Provider Internal Medicine Nephrology
DX: Z94.0 Kidney transplant status (principal); Z79.899 Other long term (current) drug therapy
CPT/HCPCS: 36415; 80048; 80053; 85027; 86706; 87340; 80197; 81003; 81015; 82465; 82565; 83735; 84100; 84156; 84550; 85045

== ENCOUNTER 2023-12-14 05:18 | Outpatient (CLI) | payer MEDICARE, OTHER, SELFPAY ==
[2023-12-14 11:42] LABS: Abs Immature Grans 0.02 10^3/uL (0.0-0.06); Absolute Basophil Count 0.04 10^3/uL (0.0-0.2); Absolute Eosinophil Count 0.16 10^3/uL (0.0-0.7); Absolute Lymphocyte Count 1.53 10^3/uL (1.2-3.4); Absolute Monocyte Count 0.63 10^3/uL (0.1-0.8); Absolute Neutrophil Count 4.82 10^3/uL (1.2-6.7); Basophils % 0.6 %; Eosinophils % 2.2 %; HCT 21.9 % (40.0-50.0); Immature Grans % 0.3 %; Lymphocytes % 21.3 %; MCH 31.3 pg (27.0-33.0); MCV 98 fL (80-95); MPV 8.5 fL (8.0-11.0); Monocytes % 8.8 %; Neutrophils % 66.8 %; Platelet Count 140 10^3/uL (130-400); RBC 2.24 10^6/uL (4.36-5.78); RDW 14.6 % (11.8-14.1); RDW-SD 51.4 fL
== END 2023-12-14 05:19 | disposition home or self-care (01) ==
PROVIDERS: PCP Family Medicine; Visit Provider Nurse Practitioner Adult Health
DX: N18.4 Chronic kidney disease, stage 4 (severe) (principal)
CPT/HCPCS: 36415; 85025

== ENCOUNTER 2023-12-15 13:19 | Observation (INO) | payer MEDICARE, OTHER, SELFPAY ==
[2023-12-15] VITALS (56 sets, daily range): BP systolic 133–189; BP diastolic 47–115; PULSE 68–87; RESP 12–24; TEMP 37–37.7; O2SAT 95–99
--- NOTE | 2023-12-15 13:15 | RT.EKG_ITS ---
APPROVED REPORT Exam: Resting ECG Reason for Exam: CP Patient Location: E HR:82 bpm ECG Measurements Heart Rate 82 AXIS MT 276 P 0 QRSd 161 QRS -64 QT 426 T 61 QTc 498 Conclusion Sinus rhythm...normal P axis, V-rate 60- 99 Prolonged MT interval...MT >220, V-rate 50- 90 RBBB and LAFB...QRSd >120mS, axis(-40,240) I have reviewed and interpreted ECG and agree with software generated interpretation. PHysician: unchanged from prior ekg
[2023-12-15 13:49] LABS: Abs Immature Grans 0.02 10^3/uL (0.0-0.06); Absolute Basophil Count 0.03 10^3/uL (0.0-0.2); Absolute Eosinophil Count 0.14 10^3/uL (0.0-0.7); Absolute Lymphocyte Count 1.66 10^3/uL (1.2-3.4); Absolute Neutrophil Count 4.29 10^3/uL (1.2-6.7); Basophils % 0.4 %; HCT 23.3 % (40.0-50.0); HGB 7.2 g/dL (13.5-17.5); Immature Grans % 0.3 %; Lymphocytes % 24.3 %; MCH 30.9 pg (27.0-33.0); MCHC 30.9 % (32.0-36.0); MCV 100 fL (80-95); MPV 8.2 fL (8.0-11.0); Monocytes % 10.2 %; Neutrophils % 62.8 %; Platelet Count 141 10^3/uL (130-400); RBC 2.33 10^6/uL (4.36-5.78); RDW 14.7 % (11.8-14.1); RDW-SD 53.1 fL; WBC 6.84 10^3/uL (4.4-10.8)
[2023-12-15 13:59] LABS: INR 1.2 (0.9-1.1); Prothrombin Time 11.7 sec (9.1-11.1)
--- NOTE | 2023-12-15 14:00 | DI.RAD_ITS ---
Exam(s) XR CHEST 2V PA LATERAL EXAM: XR CHEST 2V PA LATERAL CLINICAL HISTORY: shortness of breath. TECHNIQUE: 2D digital imaging was performed. COMPARISON: CR,XR XR CHEST 2V PA LATERAL from 01/15/2023 FINDINGS: 2 views: Heart size is normal. The mediastinum is not widened. Lungs are clear. No infiltrates nor pleural effusions. IMPRESSION: No acute pulmonary findings. DATA REPOSITORY: RADIATION DOSE DELIVERED:
[2023-12-15 14:13] LABS: ALT 22 U/L (16-63); AST 14 U/L (15-37); Albumin 2.9 g/dL (3.4-5.0); Alkaline Phosphatase 112 U/L (46-116); Anion Gap 8.6 mmol/L (3-11); BUN 68 mg/dL (7-18); Bilirubin, Total 0.6 mg/dL (0.2-1.0); CO2 27.4 mmol/L (21.0-32.0); Calcium 9.5 mg/dL (8.5-10.1); Chloride 101 mmol/L (98-107); Estimated GFR 8.26 (mL/min/1.73m2); Glucose 232 mg/dL (74-106); NT-proBNP 5919 pg/mL (<300); Potassium 4.3 mmol/L (3.5-5.1); Sodium 137 mmol/L (136-145); Total Protein 7.9 g/dL (6.4-8.2)
[2023-12-15 14:16] LABS: CREATININE 6.7 mg/dL (0.70-1.30)
[2023-12-15 14:33] LABS: BE (Venous) 2 mmol/L (-2-3); HCO3 (Venous) 26 mmol/L (23-28); O2 Sat (Venous) 98 %; TCO2 (Venous) 25 mmol/L (24-29); pCO2 (Venous) 39 mmHg (41-51); pH (Venous) 7.43 (7.31-7.41); pO2 (Venous) 99 mmHg
[2023-12-15 14:35] LABS: Lactate 1.3 mmol/L (0.6-1.4)
[2023-12-15 14:56] LABS: COVID-19 PCR Negative (Negative); Influenza A PCR Negative (Negative); Influenza B PCR Negative (Negative); RSV PCR Negative (Negative)
[2023-12-15 14:57] LABS: Source Nasopharynx
[2023-12-15 14:58] LABS: Troponin I < 50 ng/L (< or =60)
--- NOTE | 2023-12-15 15:30 | DI.CT_ITS ---
Exam(s) CT CHEST WO EXAM: CT CHEST WO CLINICAL HISTORY: fever, shortness of breath, cough. TECHNIQUE: Multi planar reconstructions were performed. CONTRAST MATERIAL: None COMPARISON: CT CT CHEST WO from 11/29/2021 CR XR CHEST 2V PA LATERAL from 12/15/2023 FINDINGS: CHEST: LUNGS: There is mild subpleural infiltrate in the posterior basal segment of the right lower lobe, no t associated with pleural effusion. This was not evident on prior CT scan of 2021. The infiltrates in the right upper lobe which was present at that time and a longer seen. There is slightly less inf iltrate also evident in the left lower lobe basal segments. There are no pleural effusions on either side. Some bronchial wall thickening is noted in both lower lobes. MEDIASTINUM: There is no obvious hilar adenopathy. Visualized thyroid unremarkable. There few sligh tly prominent lymph nodes in the posterior right mediastinum again noted adjacent to the esophagus an d the wall of the esophagus appears circumferentially thickened throughout its length, similar to the CT scan of 11/29/2021. There is no hiatal hernia evident. There is a single gas bubble adjacent to the posterior right side of the trachea just below the thyroid level but this is unchanged from 02/2022. No generalized pneumomediastinum. No obvious axillary adenopathy CARDIAC: Heart size normal. No pericardial effusion. Calcified mitral valve again noted.Caliber of the thoracic aorta is within normal limits. VISUALIZED UPPER ABDOMEN:No adrenal masses. Bilateral atrophic kidneys are again noted. OSSEOUS: No significant osseous lesions.. IMPRESSION: 1. There is mild subpleural infiltrate in the posterior basal segment of the right lower lobe and a l yvonne amount of infiltrate in the basal segments of the left lower lobe. There is some bronchial wal l thickening noted in both lower lobes. There are no pleural effusions. 2. There is circumferential thickening of the wall the entire esophagus again noted. No hiatal herni a. Single gas bubble adjacent to the right side of the trachea below the thyroid level is again note d and unchanged in size and position from 11/29/2021. There is no generalized pneumomediastinum. 3. There is slightly prominent lymph nodes in the mediastinum adjacent to the esophagus again noted. Bilateral atrophic kidneys again noted. Discussed by phone with ER provider RADIATION DOSE DELIVERED: 850.16mGy.cm Total DLP DATA REPOSITORY: All CT scans at this facility are submitted to the National Radiology Data Registry (NRDR) Dose Index Registry (DIR) with the [employer] ([employer]). RADIATION OPTIMIZATION: All CT scans at this facility use at least one of these dose optimization te chniques: automated exposure control; mA and/or kV adjustment per patient size (includes targeted exa ms where dose is matched to clinical indication); or iterative reconstruction.
--- NOTE | 2023-12-15 15:44 | W.ED.GENAD ---
Discharge Plan Disposition Patient Disposition: Admit to [facility] Condition: Stable Discharge Details Clinical Impression: Anemia, Pneumonia Admit Date/Time: 12/15/23 17:55 Admit Provider: Rayo Warner Attending Provider: Rayo Warner Primary Care Provider: Violetta Sanford ED Provider: Maciej Lechuga Discharge Data Discharge Date/Time-TO BE ENTERED AT DEPARTURE: 12/15/23 19:28 HPI General Date/Time Provider Initiated Documentation: 12/15/23 13:26. HPI Narrative: This 68-year-old male presents with acute on chronic anemia, upper respiratory symptoms including shortness of breath, cough, runny nose. Patient states his symptoms started approximately 4 days ago. He denies any chest pain or any pain complaints. He states he received his B12 injection yesterday. States he had chills unsure as to whether or not he had a fever. Denies any urinary complaints. Related Data Home Medications Medication Instructions Recorded Confirmed aspirin 81 mg tablet,delayed 81 mg PO DAILY 10/31/12 12/15/23 release ([place] Low Dose Aspirin) montelukast 10 mg tablet 10 mg PO DAILY 10/31/12 12/15/23 omeprazole 40 mg capsule,delayed 40 mg PO DAILY 10/31/12 12/15/23 release (Prilosec) multivitamin (Daily Multi-Vitamin 1 ea PO DAILY 05/10/13 12/15/23 tablet) folic acid 1 mg tablet 1 mg PO DAILY 06/12/18 12/15/23 insulin aspart U-100 100 unit/mL 0 units subcut 0800,1200,1700 #0 mL 11/15/18 12/15/23 (3 mL) subcutaneous pen (Novolog FlexPen U-100 Insulin aspart) fluticasone propionate 50 1 spray intranasal DAILY 09/04/20 12/15/23 mcg/actuation nasal spray,suspension hydralazine 100 mg tablet 100 mg PO TID 09/04/20 12/15/23 tacrolimus 1 mg capsule, 1 mg PO Q12H 09/04/20 12/15/23 immediate-release (Prograf) vitamin B complex (B 1 tab PO BID 09/04/20 10/26/23 Complex-Vitamin B12 tablet) calcitriol 0.25 mcg capsule 0.5 mcg PO DAILY 04/14/21 12/15/23 mycophenolate mofetil 250 mg 500 mg PO BID 04/14/21 12/15/23 capsule (CellCept) Inhaler, Assist Devices [Pocket 1 ea miscellaneous DIRECTED ##0 01/16/23 12/15/23 Chamber] sodium bicarbonate 650 mg tablet 1,300 mg PO BID 01/24/23 12/16/23 acetaminophen 325 mg capsule 650 mg PO Q6H PRN 10/19/23 12/15/23 amlodipine 10 mg tablet 10 mg PO DAILY 10/19/23 12/15/23 atorvastatin 20 mg tablet 20 mg PO DAILY 10/19/23 12/15/23 chlorthalidone 25 mg tablet 25 mg PO DAILY 10/19/23 12/15/23 cholecalciferol (vitamin D3) 50 50 mcg PO DAILY 10/19/23 12/15/23 mcg (2,000 unit) capsule darbepoetin cristy in polysorbat 200 300 mcg subcut QWEEK 10/19/23 12/15/23 mcg/mL in polysorbate injection (Aranesp) insulin glargine U-300 conc 300 95 unit subcut DAILY 10/19/23 12/15/23 unit/mL (3 mL) subcutaneous pen (Toujeo Max U-300 SoloStar) ipratropium 0.5 mg-albuterol 3 mg 3 ml inhalation Q6H PRN 10/19/23 12/15/23 (2.5 mg base)/3 mL nebulization soln mecobalamin (vitamin B12) 1,000 1,000 mcg PO DAILY 10/19/23 12/15/23 mcg chewable tablet metoprolol succinate 50 mg 50 mg PO DAILY 10/19/23 12/15/23 tablet,extended release 24 hr primidone 50 mg tablet 150 mg PO BID 10/19/23 12/15/23 torsemide 20 mg tablet 40 mg PO DAILY 10/19/23 12/15/23 Previous Rx's Medication Instructions Recorded insulin aspart U-100 100 unit/mL 0 units subcut 0800,1200,1700 #0 mL 11/15/18 (3 mL) subcutaneous pen (Novolog FlexPen U-100 Insulin aspart) Inhaler, Assist Devices [Pocket 1 ea miscellaneous DIRECTED ##0 01/16/23 Chamber] Allergies Allergy/AdvReac Type Severity Reaction Status Date / Time levofloxacin Allergy Mild Unknown Verified 12/15/23 13:32 sulfamethoxazole Allergy Mild Unknown Verified 12/15/23 13:32 [From Bactrim] trimethoprim [From Bactrim] Allergy Mild Unknown Verified 12/15/23 13:32 doxycycline Allergy Unknown Other (See Verified 10/26/23 10:55 Comment) tree nut Allergy Unknown Other (See Verified 12/15/23 13:32 Comment) clindamycin Allergy Skin Rash Verified 12/15/23 13:32 ibuprofen Allergy Other (See Verified 12/15/23 13:32 Comment) Penicillins Allergy SWELLING Verified 12/15/23 13:32 lisinopril AdvReac KIDNEY Verified 12/15/23 13:32 SHUT DOWN yaneth inhibitors Allergy Mild Skin Rash Uncoded 12/15/23 13:32 CATS & BIRDS AdvReac Intermediate WHEEZING Uncoded 12/15/23 13:32 General Stated Complaint: Chest Pain RADHA: 3 Exam Narrative Exam Narrative: This 68-year-old male is alert and oriented, chronically ill in appearance, no acute distress, pupils equal round reactive to light and accommodation, crackles at right lung base, cardiac rate rhythm regular, no abdominal tenderness, alert and oriented x 4 Course Vital Signs Vital signs: Vital Signs Respiratory Rate 18 12/15/23 13:26 Blood Pressure 151/115 H 12/15/23 13:26 Temperature 37.1 C 12/15/23 13:31 Temperature Source Skin 12/15/23 13:31 Pulse 87 12/15/23 13:30 Respiratory Rate 22 12/15/23 14:00 Respiratory Effort Normal, Non-Labored 12/15/23 14:00 Respiratory Depth Normal 12/15/23 14:00 Respiratory Pattern Normal 12/15/23 14:00 Blood Pressure 151/115 H 12/15/23 13:26 Blood Pressure Position Sitting 12/15/23 13:26 Pulse Oximetry 98 12/15/23 13:30 Oxygen Delivery Method Room Air 12/15/23 13:30 Oxygen Flow Rate 0 12/15/23 13:30 Lab/Test Results Lab/Test Results: 12/15/23 15:22 Blood Blood Culture - Pending 12/15/23 14:28 Blood Blood Culture - Pending Laboratory Tests Range/Units 12/15/23 12/15/23 12/15/23 13:42 13:50 14:28 WBC (4.4-10.8) 10^3/uL 6.84 RBC (4.36-5.78) 10^6/uL 2.33 L Hgb (13.5-17.5) g/dL 7.2 L Hct (40.0-50.0) % 23.3 L MCV (80-95) fL 100 H MCH (27.0-33.0) pg 30.9 MCHC (32.0-36.0) % 30.9 L RDW (11.8-14.1) % 14.7 H Plt Count (130-400) 10^3/uL 141 MPV (8.0-11.0) fL 8.2 Immature Gran % % 0.3 Neutrophils % % 62.8 Lymphocytes % % 24.3 Monocytes % % 10.2 Eosinophils % % 2.0 Basophils % % 0.4 Nucleated RBC % (0.0-0.3) % 0.0 Absolute Neutrophils (1.2-6.7) 10^3/uL 4.29 Absolute Lymphocytes (1.2-3.4) 10^3/uL 1.66 Absolute Monocytes (0.1-0.8) 10^3/uL 0.70 Absolute Eosinophils (0.0-0.7) 10^3/uL 0.14 Absolute Basophils (0.0-0.2) 10^3/uL 0.03 PT (9.1-11.1) sec 11.7 H INR (0.9-1.1) 1.2 H VBG pH (7.31-7.41) 7.43 H VBG pCO2 (41-51) mmHg 39 L VBG pO2 mmHg 99 VBG HCO3 (23-28) mmol/L 26 VBG Total CO2 (24-29) mmol/L 25 VBG O2 Saturation % 98 VBG Base Excess (-2-3) mmol/L 2 VBG Lactate (0.6-1.4) mmol/L 1.3 Sodium (136-145) mmol/L 137 Potassium (3.5-5.1) mmol/L 4.3 Chloride (98-107) mmol/L 101 Carbon Dioxide (21.0-32.0) mmol/L 27.4 Anion Gap (3-11) mmol/L 8.6 BUN (7-18) mg/dL 68 H Creatinine (0.70-1.30) mg/dL 6.7 H* Est GFR (CKD-EPI 2020) (mL/min/1.73m2) 8.26 Glucose (74-106) mg/dL 232 H Calcium (8.5-10.1) mg/dL 9.5 Total Bilirubin (0.2-1.0) mg/dL 0.6 AST (15-37) U/L 14 L ALT (16-63) U/L 22 Alkaline Phosphatase (46-116) U/L 112 Troponin I (< or =60) ng/L < 50 NT-Pro-B Natriuret Pep (<300) pg/mL 5919 H Total Protein (6.4-8.2) g/dL 7.9 Albumin (3.4-5.0) g/dL 2.9 L COVID-19 Source Nasopharynx SARS-CoV-2 (PCR) (Negative) Negative Influenza Type A (PCR) (Negative) Negative Influenza Type B (PCR) (Negative) Negative RSV (PCR) (Negative) Negative ABO/Rh O Positive Antibody Screen NEGATIVE Medical Decision Making 68-year-old male chronically ill with CKD, chronic immunosuppression on CellCept and tacrolimus for renal transplant, history of COPD and chronic anemia presents with upper respiratory symptoms with temp of 100.8 temp orally. Temp oral temperature 100.8. Patient's anemia is slightly lower than it has been in the past but he is hemodynamically stable. With the fever and otherwise stable blood pressure and vitals, I am going to hold on the transfusion for repeat CBC. He received an injection for macrocytic anemia yesterday. Chest x-ray does not show obvious infiltrate will order CT chest. Will consult with patient's transplant team regarding management of his current symptoms. Will order dose of ceftriaxone as patient has upper respiratory symptoms with fever in the presence of COPD and is immunosuppressed. Creatinine is baseline for patient at 6.7, anemia, patient typically has a hemoglobin of 8, it is 7.2 today. BNP of 5919, this is increased from prior although chest x-ray does not show obvious evidence of volume overload. Ejection fraction on last echocardiogram 50 to 55% from 2018. Case discussed with Dr. Crespo, hospitalist as given patient's immunocompromise state with fever and upper respiratory symptoms in addition to anemia I think you would benefit from observation admission, dose of antibiotics pending blood cultures and repeat CBC at this time. I think symptoms are more related to viral or bacterial etiology and less likely related to anemia at time of my assessment. CT is ordered of chest, pending interpretation. Call placed to [facility] at 1600 speak with transplant team regarding management and whether or not to continue immunosuppressive's. Quality:SDOH Health Related Social Needs: Health related social needs material hardship PFSH All Active Problems Pneumonia (Acute) Anemia (Chronic) DVT prophylaxis (Acute) CAP (community acquired pneumonia) (Acute) Basal cell carcinoma (Acute) Delayed wound healing (Acute ~2018) burn left arm happened 2019 fistula near wound Abnormal electrocardiogram (Acute) Phantom pain (Acute) Tremor (Acute) per pCP treated with primidone RH HTN (hypertension) (Chronic) Diabetes mellitus (Chronic) Edentulous (Acute) Esophageal foreign body (Acute) Food impaction of esophagus (Acute) Macrocytic anemia (Acute) Gastroparesis diabeticorum (Acute) Kidney transplant recipient (Acute) Chronic kidney disease (Chronic) Hypertension (Chronic) Hyperlipidemia (Chronic) CAD (coronary artery disease) (Chronic) GERD (gastroesophageal reflux disease) (Chronic) Asthma (Chronic) Chronic anxiety (Chronic) Chronic depression (Chronic) Intention tremor (Chronic) Status post appendectomy (Acute) Physical medicine and rehabilitation procedures (Acute 06/27/13) Dysphagia (Acute) CHF (congestive heart failure) (Acute) Diastolic CHF (Acute) Acute kidney injury superimposed on chronic kidney disease (Acute) Uncontrolled insulin dependent diabetes mellitus (Acute) Ambulatory dysfunction (Acute) MELISSA (obstructive sleep apnea) (Chronic) Wenckebach second degree AV block (Acute) Fluid level behind tympanic membrane of left ear (Acute) Sensory hearing loss, bilateral (Acute) Tinnitus, bilateral (Acute) Osteoma of ear canal (Acute) Atrial fibrillation (Chronic) per pcp Pt had one episode 11/10 RH Kidney transplant recipient (Chronic) 2005 Medical History Left lower lobe pneumonia Sepsis CAP (community acquired pneumonia) Infection of amputation stump of right lower extremity Tubular adenoma of colon (02/01/17) Abscess of axilla (05/11/13) Personal history of allergy to other antibiotic agent Vitamin B 12 deficiency Adenomatous colon polyp History of colon polyps Lumbar back pain Erectile dysfunction Anxiety and depression Hydrocele Intention tremor Tricuspid insufficiency Obesity Stage 3 severe COPD by GOLD classification Hyperlipidemia Sciatica GERD (gastroesophageal reflux disease) MELISSA (obstructive sleep apnea) per PCP not using CPAP 01/20/23 RH Surgical History Status post bilateral below knee amputation History of bilateral cataract extraction 1999 H/O sinus surgery 2010 History of cardiac catheterization 2005 History of appendectomy 2012 History of colonoscopy (~10/2020) History of below-knee amputation of both lower extremities 2000 and 2010 Hx of amputation below knee Kidney transplant recipient 01/08/2014 EGD - MAC (04/02/16) Colonoscopy - MAC (02/01/17) Family History Father , cancer at 64 No problems noted. Brother , SM Cell Cancer No problems noted. Sister Breast cancer Mother No problems noted. Social History Smoking/Tobacco Use Status: Former Tobacco Use Quit Date: 07/25/90 Tobacco: How many years used: 15 Smoking risk assessment performed?: Yes Alcohol Intake: never Drug use: Never Substance use type: does not use Household members: spouse Housing: house What is your relationship status?: Panel score (0-1 are the most socially isolated patients): 1 Do you feel safe at home: Yes Do you feel safe in your relationship?: Yes Sign Out Sign Out Data: Sign Out Comment: pending urinalysis, ct chest, and transplant team consult at [facility] [place], Dr Warner aware of pt Last updated by Purnima Brown PA at 12/15/23 15:53
[2023-12-15] MEDS: cefTRIAXone 1 GM/50 ML BAG IVPB (16:13)
[2023-12-15 16:31] LABS: Bilirubin Negative (Negative); Blood Negative (Negative); Clarity Sl Cloudy (Clear); Glucose 250 mg/dL (Negative); Ketones Negative (Negative); Leukocyte Esterase Negative (Negative); Nitrite Negative (Negative); Urobilinogen 0.2 mg/dL (Up to 0.2)
--- NOTE | 2023-12-15 16:35 | ED.PROG_ITS ---
Date of service: 12/15/23 Time of Service: 16:35 Medical Decision Making This dictation utilizes [id number] dictation software and may contain unedited grammatical errors. Patient seen in sign-out from Purnima Brown PA-C, please see her complete note. Essentially, this 68 y/o M presents to ED today with a chief complaint of URI symptoms, as well as low hemoglobin (7.2, improvement from prior 7.0) at PCP lab result, febrile- history of kidney transplant on Tacrolimus and Darbapoetin. Patient has already been accepted for admission by Dr. Warner pending [facility] Transplant Team consult- specific recommendations for possibly halting immunosupressants, with pending CT of chest wo Contrast, and pending UA- Patient is also a dialysis patient, but has a basal cell carcinoma at his fistula site and needs a MOHS procedure- SCr is at 6.7 but patients baseline. Patients' medical history: kidney transplant, COPD, chronic macrocytic anemia with recent B12 injection, status post bilateral below-knee amputation, basal cell carcinoma, hypertension, diabetes mellitus, history of gastroparesis, esophageal foreign body with impaction, coronary artery disease, intention tremor, CHF, osteoma, one episode of atrial fibrillation. Family and social history: [ ]. Diagnostic studies of: -CBC, CMP, PT, type and screen, COVID/flu/RSV PCR, BNP, lactate, VBG, troponin, x-ray of the chest, CT of chest without contrast, EKG. -CBC shows HgB of 7.2, was 7.0 two days prior, no leukocytosis but on immunosupressants -CMP shows SCr of 6.7- is patients baseline, otherwise unremarkable, hyperglycemia in poorly controlled DM -PT 11.7, INR 1.2 -Type and Screen O POS with neg Ab screen -VBG benign -Lactate negative -Trop negative -BNP 5900 -CXR showed no acute pulmonary findings -CT Chest shows subpleural infiltrates, R lower lobe and less so on the L, bronchial wall thickening - incidental findings of thickening of eesophageal wall, gas bubble aiden-trachea that is chronic, prominent mediastinal lymph nodes -EKG shows sinus rhythm at 82 bpm with P waves followed by narrow complex QRS, right bundle branch block, normal QT QTc, left axis deviation, no ST elevations or reciprocal depressions, no no voltage criteria, poor R wave progression, new inverted T waves in V1 Interventions of: -IV Ceftriaxone. ED Course/Assessment/Plan: 68-year-old male with bilateral below-knee amputations presents with cough, he is febrile, has incidental findings of severe anemia that is chronic, he recently received a B12 shot, he is a kidney transplant patient with fistula in place in anticipation of starting dialysis, has a basal cell carcinoma at the dialysis site and has not started dialysis yet. His creatinine is baseline at 6.7. He is immune suppressed on tacrolimus and CellCept. He signed out to me pending CT of the chest which shows infiltrates likely of pneumonia. Likely warrants observation overnight with recheck of hemoglobin as well as treatment for pneumonia. Patient was admitted by Dr. Warner with pending [facility] transplant team consult, they have not called back in a significant amount of time. Findings not consistent with hypoxic respiratory failure, need for emergent blood transfusion. Disposition of Pneumonia, Anemia. Patient verbalized understanding of the plan and return to ED criteria and engaged in shared decision making. Medical Records Medical records reviewed: Yes I reviewed the patient's medical records. Imaging Data Radiologic Study: Attestation: I personally reviewed and interpreted this imaging study as follows: Imaging: X-Ray Radiologist's impression: EXAM: XR CHEST 2V PA LATERAL CLINICAL HISTORY: shortness of breath. TECHNIQUE: 2D digital imaging was performed. COMPARISON: CR,XR XR CHEST 2V PA LATERAL from 01/15/2023 FINDINGS: 2 views: Heart size is normal. The mediastinum is not widened. Lungs are clear. No infiltrates nor pleural effusions. Radiologic Study #2: Attestation: I personally reviewed and interpreted this imaging study as follows: Imaging: CT Scan Radiologist's impression: EXAM: CT CHEST WO CLINICAL HISTORY: fever, shortness of breath, cough. TECHNIQUE: Multi planar reconstructions were performed. CONTRAST MATERIAL: None COMPARISON: CT CT CHEST WO from 11/29/2021 CR XR CHEST 2V PA LATERAL from 12/15/2023 FINDINGS: CHEST: LUNGS: There is mild subpleural infiltrate in the posterior basal segment of the right lower lobe, not associated with pleural effusion. This was not evident on prior CT scan of 2021. The infiltrates in the right upper lobe which was present at that time and a longer seen. There is slightly less infiltrate also evident in the left lower lobe basal segments. There are no pleural effusions o n either side. Some bronchial wall thickening is noted in both lower lobes. MEDIASTINUM: There is no obvious hilar adenopathy. Visualized thyroid unremarkable. There few slightly prominent lymph nodes in the posterior right mediastinum again noted adjacent to the esophagus and the wall of the esophagus appears circumferentially thickened throughout its length, similar to the CT scan of 11/29/2021. There is no hiatal hernia evident. There is a single gas bubble adjacent to the posterior right side of the trachea just below the thyroid level but this is unchanged from 11/29/2021. No generalized pneumomediastinum. No obvious axillary adenopathy CARDIAC: Heart size normal. No pericardial effusion. Calcified mitral valve again noted.Caliber of the thoracic aorta is within normal limits. VISUALIZED UPPER ABDOMEN:No adrenal masses. Bilateral atrophic kidneys are again noted. OSSEOUS: No significant osseous lesions.. IMPRESSION: 1. There is mild subpleural infiltrate in the posterior basal segment of the right lower lobe and a lesser amount of infiltrate in the basal segments of the left lower lobe. There is some bronchial wall thickening noted in both lower lobes. There are no pleural effusions. 2. There is circumferential thickening of the wall the entire esophagus again noted. No hiatal hernia. Single gas bubble adjacent to the right side of the trachea below the thyroid level is again noted and unchanged in size and position from 11/29/2021. There is no generalized pneumomediastinum. 3. There is slightly prominent lymph nodes in the mediastinum adjacent to the esophagus again noted. Bilateral atrophic kidneys again noted. Lab Data Lab results reviewed: Yes I reviewed the patient's lab results. Labs: 12/15/23 15:22 Blood Blood Culture - Pending 12/15/23 14:28 Blood Blood Culture - Pending Laboratory Tests Range/Units 12/15/23 12/15/23 12/15/23 13:42 13:50 14:28 WBC (4.4-10.8) 10^3/uL 6.84 RBC (4.36-5.78) 10^6/uL 2.33 L Hgb (13.5-17.5) g/dL 7.2 L Hct (40.0-50.0) % 23.3 L MCV (80-95) fL 100 H MCH (27.0-33.0) pg 30.9 MCHC (32.0-36.0) % 30.9 L RDW (11.8-14.1) % 14.7 H Plt Count (130-400) 10^3/uL 141 MPV (8.0-11.0) fL 8.2 Immature Gran % % 0.3 Neutrophils % % 62.8 Lymphocytes % % 24.3 Monocytes % % 10.2 Eosinophils % % 2.0 Basophils % % 0.4 Nucleated RBC % (0.0-0.3) % 0.0 Absolute Neutrophils (1.2-6.7) 10^3/uL 4.29 Absolute Lymphocytes (1.2-3.4) 10^3/uL 1.66 Absolute Monocytes (0.1-0.8) 10^3/uL 0.70 Absolute Eosinophils (0.0-0.7) 10^3/uL 0.14 Absolute Basophils (0.0-0.2) 10^3/uL 0.03 PT (9.1-11.1) sec 11.7 H INR (0.9-1.1) 1.2 H VBG pH (7.31-7.41) 7.43 H VBG pCO2 (41-51) mmHg 39 L VBG pO2 mmHg 99 VBG HCO3 (23-28) mmol/L 26 VBG Total CO2 (24-29) mmol/L 25 VBG O2 Saturation % 98 VBG Base Excess (-2-3) mmol/L 2 VBG Lactate (0.6-1.4) mmol/L 1.3 Sodium (136-145) mmol/L 137 Potassium (3.5-5.1) mmol/L 4.3 Chloride (98-107) mmol/L 101 Carbon Dioxide (21.0-32.0) mmol/L 27.4 Anion Gap (3-11) mmol/L 8.6 BUN (7-18) mg/dL 68 H Creatinine (0.70-1.30) mg/dL 6.7 H* Est GFR (CKD-EPI 2020) (mL/min/1.73m2) 8.26 Glucose (74-106) mg/dL 232 H Calcium (8.5-10.1) mg/dL 9.5 Total Bilirubin (0.2-1.0) mg/dL 0.6 AST (15-37) U/L 14 L ALT (16-63) U/L 22 Alkaline Phosphatase (46-116) U/L 112 Troponin I (< or =60) ng/L < 50 NT-Pro-B Natriuret Pep (<300) pg/mL 5919 H Total Protein (6.4-8.2) g/dL 7.9 Albumin (3.4-5.0) g/dL 2.9 L Urine Color (Yellow) Urine Clarity (Clear) Urine pH (5-8) Ur Specific Dalton (1.005-1.025) Urine Protein (Neg-Trace) mg/dL Urine Ketones (Negative) mg/dL Urine Blood (Negative) Urine Nitrite (Negative) Urine Bilirubin (Negative) Urine Urobilinogen (Up to 0.2) mg/dL Ur Leukocyte Esterase (Negative) Urine Glucose (Negative) mg/dL COVID-19 Source Nasopharynx SARS-CoV-2 (PCR) (Negative) Negative Influenza Type A (PCR) (Negative) Negative Influenza Type B (PCR) (Negative) Negative RSV (PCR) (Negative) Negative ABO/Rh O Positive Antibody Screen NEGATIVE Range/Units 12/15/23 16:10 WBC (4.4-10.8) 10^3/uL RBC (4.36-5.78) 10^6/uL Hgb (13.5-17.5) g/dL Hct (40.0-50.0) % MCV (80-95) fL MCH (27.0-33.0) pg MCHC (32.0-36.0) % RDW (11.8-14.1) % Plt Count (130-400) 10^3/uL MPV (8.0-11.0) fL Immature Gran % % Neutrophils % % Lymphocytes % % Monocytes % % Eosinophils % % Basophils % % Nucleated RBC % (0.0-0.3) % Absolute Neutrophils (1.2-6.7) 10^3/uL Absolute Lymphocytes (1.2-3.4) 10^3/uL Absolute Monocytes (0.1-0.8) 10^3/uL Absolute Eosinophils (0.0-0.7) 10^3/uL Absolute Basophils (0.0-0.2) 10^3/uL PT (9.1-11.1) sec INR (0.9-1.1) VBG pH (7.31-7.41) VBG pCO2 (41-51) mmHg VBG pO2 mmHg VBG HCO3 (23-28) mmol/L VBG Total CO2 (24-29) mmol/L VBG O2 Saturation % VBG Base Excess (-2-3) mmol/L VBG Lactate (0.6-1.4) mmol/L Sodium (136-145) mmol/L Potassium (3.5-5.1) mmol/L Chloride (98-107) mmol/L Carbon Dioxide (21.0-32.0) mmol/L Anion Gap (3-11) mmol/L BUN (7-18) mg/dL Creatinine (0.70-1.30) mg/dL Est GFR (CKD-EPI 2020) (mL/min/1.73m2) Glucose (74-106) mg/dL Calcium (8.5-10.1) mg/dL Total Bilirubin (0.2-1.0) mg/dL AST (15-37) U/L ALT (16-63) U/L Alkaline Phosphatase (46-116) U/L Troponin I (< or =60) ng/L NT-Pro-B Natriuret Pep (<300) pg/mL Total Protein (6.4-8.2) g/dL Albumin (3.4-5.0) g/dL Urine Color (Yellow) Yellow Urine Clarity (Clear) Sl Cloudy Urine pH (5-8) 7.0 Ur Specific Dalton (1.005-1.025) 1.020 Urine Protein (Neg-Trace) mg/dL >=300 H Urine Ketones (Negative) mg/dL Negative Urine Blood (Negative) Negative Urine Nitrite (Negative) Negative Urine Bilirubin (Negative) Negative Urine Urobilinogen (Up to 0.2) mg/dL 0.2 Ur Leukocyte Esterase (Negative) Negative Urine Glucose (Negative) mg/dL 250 H COVID-19 Source SARS-CoV-2 (PCR) (Negative) Influenza Type A (PCR) (Negative) Influenza Type B (PCR) (Negative) RSV (PCR) (Negative) ABO/Rh Antibody Screen Quality:SDOH Health Related Social Needs: Health related social needs material hardship Sign Out Sign Out Data: Sign Out Comment: pending urinalysis, ct chest, and [place] [facility] [place] Warner aware of pt Last updated by Purnima Brown PA at 12/15/23 15:53 Discharge Plan Disposition Patient Disposition: Admit to [facility] Condition: Stable Discharge Details Chief Complaint: Chest Pain Clinical Impression: Anemia, Pneumonia Admit Date/Time: 12/15/23 17:55 Admit Provider: Rayo Warner Attending Provider: Rayo Warner Primary Care Provider: Violetta Sanford ED Provider: Maciej Lechuga Discharge Data Discharge Date/Time-TO BE ENTERED AT DEPARTURE: 12/15/23 19:28
[2023-12-15 16:49] LABS: Bacteria Negative HPF (Negative); C & S Indicated? No; Casts Negative LPF (Negative); Crystals Negative HPF (Negative); Epithelial Cells Negative HPF (Negative); Mucus Trace (Negative); RBC 0-2 HPF (0-2)
--- NOTE | 2023-12-15 19:00 | HPE_ITS ---
Date of service: 12/15/23 Time of Service: 19:01 Assessment and Plan Assessment and plan (1) CAP (community acquired pneumonia): Status: Acute Assessment and plan: Not clear on CXR but concern clinically given immune suppression and presentation, seen on CT. Will treat with ceftriaxon and azithromycin. Given high risk, he is being admitted for observation. (2) Macrocytic anemia: Status: Acute Assessment and plan: severe anemia, may be contributing to his SOB, but improved from yesterday. Follow (3) COPD (chronic obstructive pulmonary disease): Status: None Assessment and plan: with pneumonia and diffuse wheezing we are treatign COPD exacerbation with steroids, bronchodilators. (4) HTN (hypertension): Status: Chronic Assessment and plan: continue home medications (5) Diabetes mellitus: Status: Chronic Assessment and plan: continue home insulin (6) Chronic kidney disease: Status: Chronic Assessment and plan: Severe, but stable and lytes okay. Monitor. Qualifiers: Chronic kidney disease stage: stage 3 (moderate) Qualified Code(s): N 18.3 - Chronic kidney disease, stage 3 (moderate) (7) Kidney transplant recipient: Status: Acute Assessment and plan: We did not hear back from transplant, but continue home antirejection medication for now (8) MELISSA (obstructive sleep apnea): Status: Chronic Assessment and plan: not using CPAP at home per report (9) DVT prophylaxis: Status: Acute Assessment and plan: heparin rather than enoxaparin given CKD 5 History of Present Illness History of Present Illness Chief Complaint: cough Narrative: 68 yo M with stage 5 CKD s/p failing renal transplant, chronic anemia a/w CKD, and IDDM who presented with 3-4 days of runny nose and progressive painful cough. Started 3-4 days ago with some nasal congestion and running. Cough has increased and feeling more fatigue and shortness of breath. Gets pain across lower chest/epigastrum with cough, no substernal pain. He had labs yesterday and got his arenesp shot for his anemia, but he feels worse rather than better today. No lower abdominal pain, but he has had some watery stools 3-4/day. no nausea/vomiting. He doesn't use inhalers regularly. He has been preparing to restart dialysis, but cannot use his fistula due to overlying skin cancer. He continues his antirejection meds under direction of Dr. Garnett but plans to transfer care to nephrology for dialysis when needed. Review of Systems All systems reviewed & are unremarkable except as noted in HPI and below PFSH All Active Problems DVT prophylaxis (Acute) CAP (community acquired pneumonia) (Acute) Basal cell carcinoma (Acute) Delayed wound healing (Acute ~2019) burn left arm happened 2019 fistula near wound Abnormal electrocardiogram (Acute) Phantom pain (Acute) Tremor (Acute) per pCP treated with primidone RH HTN (hypertension) (Chronic) Diabetes mellitus (Chronic) Edentulous (Acute) Esophageal foreign body (Acute) Food impaction of esophagus (Acute) Macrocytic anemia (Acute) Gastroparesis diabeticorum (Acute) Kidney transplant recipient (Acute) Chronic kidney disease (Chronic) Hypertension (Chronic) Hyperlipidemia (Chronic) CAD (coronary artery disease) (Chronic) GERD (gastroesophageal reflux disease) (Chronic) Asthma (Chronic) Chronic anxiety (Chronic) Chronic depression (Chronic) Intention tremor (Chronic) Status post appendectomy (Acute) Physical medicine and rehabilitation procedures (Acute 06/27/13) Dysphagia (Acute) CHF (congestive heart failure) (Acute) Diastolic CHF (Acute) Acute kidney injury superimposed on chronic kidney disease (Acute) Uncontrolled insulin dependent diabetes mellitus (Acute) Ambulatory dysfunction (Acute) MELISSA (obstructive sleep apnea) (Chronic) Wenckebach second degree AV block (Acute) Fluid level behind tympanic membrane of left ear (Acute) Sensory hearing loss, bilateral (Acute) Tinnitus, bilateral (Acute) Osteoma of ear canal (Acute) Atrial fibrillation (Chronic) per pcp Pt had one episode 11/10 RH Kidney transplant recipient (Chronic) 2005 Medical History Left lower lobe pneumonia Sepsis CAP (community acquired pneumonia) Infection of amputation stump of right lower extremity Tubular adenoma of colon (02/01/17) Abscess of axilla (05/11/13) Personal history of allergy to other antibiotic agent Vitamin B 12 deficiency Adenomatous colon polyp History of colon polyps Lumbar back pain Erectile dysfunction Anxiety and depression Hydrocele Intention tremor Tricuspid insufficiency Obesity Stage 3 severe COPD by GOLD classification Hyperlipidemia Sciatica GERD (gastroesophageal reflux disease) MELISSA (obstructive sleep apnea) per PCP not using CPAP 01/20/23 Surgical History Status post bilateral below knee amputation History of bilateral cataract extraction 1999 H/O sinus surgery 2010 History of cardiac catheterization 2005 History of appendectomy 2012 History of colonoscopy (~10/2020) History of below-knee amputation of both lower extremities 2000 and 2010 Hx of amputation below knee Kidney transplant recipient 01/08/2014 EGD - MAC (04/02/16) Colonoscopy - MAC (02/01/17) Family History Father , cancer at 64 No problems noted. Brother , SM Cell Cancer No problems noted. Sister Breast cancer Mother No problems noted. Social History Smoking/Tobacco Use Status: Former Tobacco Use Quit Date: 07/25/90 Tobacco: How many years used: 15 Smoking risk assessment performed?: Yes Alcohol Intake: never Drug use: Never Substance use type: does not use Household members: spouse Housing: house What is your relationship status?: Panel score (0-1 are the most socially isolated patients): 1 Do you feel safe at home: Yes Do you feel safe in your relationship?: Yes Meds Allergies and Home Medications Allergies Allergy/AdvReac Type Severity Reaction Status Date / Time levofloxacin Allergy Mild Unknown Verified 12/15/23 13:32 sulfamethoxazole Allergy Mild Unknown Verified 12/15/23 13:32 [From Bactrim] trimethoprim [From Bactrim] Allergy Mild Unknown Verified 12/15/23 13:32 doxycycline Allergy Unknown Other (See Verified 10/26/23 10:55 Comment) tree nut Allergy Unknown Other (See Verified 12/15/23 13:32 Comment) clindamycin Allergy Skin Rash Verified 12/15/23 13:32 ibuprofen Allergy Other (See Verified 12/15/23 13:32 Comment) Penicillins Allergy SWELLING Verified 12/15/23 13:32 lisinopril AdvReac KIDNEY Verified 12/15/23 13:32 SHUT DOWN yaneth inhibitors Allergy Mild Skin Rash Uncoded 12/15/23 13:32 CATS & BIRDS AdvReac Intermediate WHEEZING Uncoded 12/15/23 13:32 Home Medications Medication Instructions Recorded Confirmed Type aspirin 81 mg tablet,delayed 81 mg PO DAILY 10/31/12 12/15/23 History release ([place] Low Dose Aspirin) montelukast 10 mg tablet 10 mg PO DAILY 10/31/12 12/15/23 History omeprazole 40 mg capsule,delayed 40 mg PO DAILY 10/31/12 12/15/23 History release (Prilosec) multivitamin (Daily Multi-Vitamin 1 ea PO DAILY 05/10/13 12/15/23 History tablet) folic acid 1 mg tablet 1 mg PO DAILY 06/12/18 12/15/23 History insulin aspart U-100 100 unit/mL 0 units subcut 0800,1200,1700 #0 mL 11/15/18 12/15/23 Rx (3 mL) subcutaneous pen (Novolog FlexPen U-100 Insulin aspart) fluticasone propionate 50 1 spray intranasal DAILY 09/04/20 12/15/23 History mcg/actuation nasal spray,suspension hydralazine 100 mg tablet 100 mg PO TID 09/04/20 12/15/23 History tacrolimus 1 mg capsule, 1 mg PO Q12H 09/04/20 12/15/23 History immediate-release (Prograf) vitamin B complex (B 1 tab PO BID 09/04/20 10/26/23 History Complex-Vitamin B12 tablet) calcitriol 0.25 mcg capsule 0.5 mcg PO DAILY 04/14/21 12/15/23 History mycophenolate mofetil 250 mg 500 mg PO BID 04/14/21 12/15/23 History capsule (CellCept) Inhaler, Assist Devices [Pocket 1 ea miscellaneous DIRECTED ##0 01/16/23 12/15/23 Rx Chamber] sodium bicarbonate 650 mg tablet 650 mg PO BID PRN 01/24/23 12/15/23 History acetaminophen 325 mg capsule 650 mg PO Q6H PRN 10/19/23 12/15/23 History amlodipine 10 mg tablet 10 mg PO DAILY 10/19/23 12/15/23 History atorvastatin 20 mg tablet 20 mg PO DAILY 10/19/23 12/15/23 History chlorthalidone 25 mg tablet 25 mg PO DAILY 10/19/23 12/15/23 History cholecalciferol (vitamin D3) 50 50 mcg PO DAILY 10/19/23 12/15/23 History mcg (2,000 unit) capsule darbepoetin cristy in polysorbat 200 300 mcg subcut QWEEK 10/19/23 12/15/23 History mcg/mL in polysorbate injection (Aranesp) insulin glargine U-300 conc 300 95 unit subcut DAILY 10/19/23 12/15/23 History unit/mL (3 mL) subcutaneous pen (Toujeo Max U-300 SoloStar) ipratropium 0.5 mg-albuterol 3 mg 3 ml inhalation Q6H PRN 10/19/23 12/15/23 History (2.5 mg base)/3 mL nebulization soln mecobalamin (vitamin B12) 1,000 1,000 mcg PO DAILY 10/19/23 12/15/23 History mcg chewable tablet metoprolol succinate 50 mg 50 mg PO DAILY 10/19/23 12/15/23 History tablet,extended release 24 hr primidone 50 mg tablet 150 mg PO BID 10/19/23 12/15/23 History torsemide 20 mg tablet 40 mg PO DAILY 10/19/23 12/15/23 History Exam Narrative Exam Narrative: GEN: Alert and oriented x 4, pleasant and cooperative, gives linear history. No acute distress at rest. HEENT: Head atraumatic. Conjunctiva clear, no icterus. PEERL, EOMI. TMs clear, tube in left not draining. + rhinorrhea. MMM, OP red but no exudate. Neck is supple with no masses or lymphadenopathy, trachea midline LUNGS: Diffuse course wheezing. No focal rales, moving air throughout. CV: RRR with no murmurs, gallops, or rubs. ABD: +BS, soft, NT/ND EXT: no cyanosis, clubbing or edema in UE. Eduardo LE amputations with prostheses MSK: No joint redness or swelling NEURO: CN 2-12 grossly intact. Normal movement of 4 extremities. Normal speech and coordination. no tremor SKIN: No rashes or open wounds. PSYCH: normal mood and affect, nl thought process Results Imaging Chest x-ray: report reviewed (no acute disease) and image reviewed CT scan - chest: report reviewed (1. There is mild subpleural infiltrate in the posterior basal segment of the right lower lobe and a lesser amount of infiltrate in the basal segments of the left lower lobe. There is some bronchial wall thickening noted in both lower lobes. There are no pleural effusions. 2. There is circumferen) EKG: report reviewed and image reviewed (sinus, RBBB and LAFB, no change from previous) Labs 12/15/23 13:42 12/15/23 13:42 Labs: Laboratory Results - last 24 hr 12/15/23 12/15/23 12/15/23 13:42 13:50 14:28 WBC 6.84 RBC 2.33 L Hgb 7.2 L Hct 23.3 L MCV 100 H MCH 30.9 MCHC 30.9 L RDW 14.7 H Plt Count 141 MPV 8.2 Immature Gran % 0.3 Neutrophils % 62.8 Lymphocytes % 24.3 Monocytes % 10.2 Eosinophils % 2.0 Basophils % 0.4 Nucleated RBC % 0.0 Absolute Neutrophils 4.29 Absolute Lymphocytes 1.66 Absolute Monocytes 0.70 Absolute Eosinophils 0.14 Absolute Basophils 0.03 PT 11.7 H INR 1.2 H VBG pH 7.43 H VBG pCO2 39 L VBG pO2 99 VBG HCO3 26 VBG Total CO2 25 VBG O2 Saturation 98 VBG Base Excess 2 VBG Lactate 1.3 Sodium 137 Potassium 4.3 Chloride 101 Carbon Dioxide 27.4 Anion Gap 8.6 BUN 68 H Creatinine 6.7 H* Est GFR (CKD-EPI 2020) 8.26 Glucose 232 H Calcium 9.5 Total Bilirubin 0.6 AST 14 L ALT 22 Alkaline Phosphatase 112 Troponin I < 50 NT-Pro-B Natriuret Pep 5919 H Total Protein 7.9 Albumin 2.9 L Urine Color Urine Clarity Urine pH Ur Specific [place] Urine Protein Urine Ketones Urine Blood Urine Nitrite Urine Bilirubin Urine Urobilinogen Ur Leukocyte Esterase Urine RBC Urine WBC Ur Epithelial Cells Urine Crystals Urine Bacteria Urine Casts Urine Mucus Ur Culture Indicated? Urine Glucose COVID-19 Source Nasopharynx SARS-CoV-2 (PCR) Negative Influenza Type A (PCR) Negative Influenza Type B (PCR) Negative RSV (PCR) Negative ABO/Rh O Positive Antibody Screen NEGATIVE 12/15/23 16:10 WBC RBC Hgb Hct MCV MCH MCHC RDW Plt Count MPV Immature Gran % Neutrophils % Lymphocytes % Monocytes % Eosinophils % Basophils % Nucleated RBC % Absolute Neutrophils Absolute Lymphocytes Absolute Monocytes Absolute Eosinophils Absolute Basophils PT INR VBG pH VBG pCO2 VBG pO2 VBG HCO3 VBG Total CO2 VBG O2 Saturation VBG Base Excess VBG Lactate Sodium Potassium Chloride Carbon Dioxide Anion Gap BUN Creatinine Est GFR (CKD-EPI 2020) Glucose Calcium Total Bilirubin AST ALT Alkaline Phosphatase Troponin I NT-Pro-B Natriuret Pep Total Protein Albumin Urine Color Yellow Urine Clarity Sl Cloudy Urine pH 7.0 Ur Specific [place] 1.020 Urine Protein >=300 H Urine Ketones Negative Urine Blood Negative Urine Nitrite Negative Urine Bilirubin Negative Urine Urobilinogen 0.2 Ur Leukocyte Esterase Negative Urine RBC 0-2 Urine WBC 3-5 Ur Epithelial Cells Negative Urine Crystals Negative Urine Bacteria Negative Urine Casts Negative Urine Mucus Trace Ur Culture Indicated? No Urine Glucose 250 H COVID-19 Source SARS-CoV-2 (PCR) Influenza Type A (PCR) Influenza Type B (PCR) RSV (PCR) ABO/Rh Antibody Screen Last Vital Signs Temp 37.1 C 12/15/23 13:31 Pulse 86 12/15/23 18:46 Resp 15 12/15/23 18:50 BP 163/82 H 12/15/23 18:46 Pulse Ox 98 12/15/23 13:30 Time Spent Time spent with Patient: 55-74 minutes Time was spent: preparing to see the patient(eg.review tests), obtaining and/or reviewing separately otained hiistory, ordering medications,tests, procedures, referring, communicating with other health workforce investment act career manager, indepentently interpreting results and counseling the patient
[2023-12-15] MEDS: Vitamins B Comp w/C TAB 1 TAB PO (19:57)
[2023-12-15] MEDS: Azithromycin 250 MG TAB 500 MG PO (19:58)
[2023-12-15] MEDS: Acetaminophen 325 MG TAB 650 MG PO (19:58)
[2023-12-15] MEDS: Heparin 5,000 UNITS/ML VIAL 5000 UNITS SC (19:58)
[2023-12-15] MEDS: methylPREDNISolone SUCC 125 MG VIAL IVP (21:07)
[2023-12-16] MEDS: guaiFENesin/D-METHORPHAN HB 5 ML CUP 10 ML PO (01:52)
[2023-12-16] MEDS: Heparin 5,000 UNITS/ML VIAL 5000 UNITS SC ×2 (04:02→12:18)
[2023-12-16] MEDS: methylPREDNISolone SUCC 125 MG VIAL 80 MG IVP (04:03)
[2023-12-16 06:36] LABS: Abs Immature Grans 0.03 10^3/uL (0.0-0.06); Absolute Basophil Count 0.01 10^3/uL (0.0-0.2); Absolute Lymphocyte Count 1.01 10^3/uL (1.2-3.4); Absolute Monocyte Count 0.09 10^3/uL (0.1-0.8); Absolute Neutrophil Count 4.09 10^3/uL (1.2-6.7); Basophils % 0.2 %; HCT 24.7 % (40.0-50.0); HGB 7.4 g/dL (13.5-17.5); Immature Grans % 0.6 %; Lymphocytes % 19.3 %; MCH 30.5 pg (27.0-33.0); MCV 102 fL (80-95); MPV 8.9 fL (8.0-11.0); Monocytes % 1.7 %; Neutrophils % 78.2 %; Platelet Count 148 10^3/uL (130-400); RBC 2.43 10^6/uL (4.36-5.78); RDW 14.7 % (11.8-14.1); RDW-SD 53.9 fL; WBC 5.23 10^3/uL (4.4-10.8)
[2023-12-16 06:55] LABS: Anion Gap 11.8 mmol/L (3-11); BUN 71 mg/dL (7-18); CO2 24.2 mmol/L (21.0-32.0); Calcium 9.9 mg/dL (8.5-10.1); Chloride 102 mmol/L (98-107); Estimated GFR 8.41 (mL/min/1.73m2); Glucose 293 mg/dL (74-106); Potassium 5.1 mmol/L (3.5-5.1); Sodium 138 mmol/L (136-145)
[2023-12-16 07:00] LABS: CREATININE 6.6 mg/dL (0.70-1.30)
[2023-12-16] MEDS: Acetaminophen 325 MG TAB 650 MG PO (07:45)
[2023-12-16] MEDS: Montelukast 10 MG TAB PO (07:46)
[2023-12-16] MEDS: Folic Acid 1 MG TAB PO (07:46)
[2023-12-16] MEDS: Metoprolol CR 50 MG TABCR PO (07:46)
[2023-12-16] MEDS: Cholecalciferol (Vitamin D3) 1,000 UNIT TAB 2000 UNITS PO (07:46)
[2023-12-16] MEDS: guaiFENesin 600 MG TABCR PO (07:46)
[2023-12-16] MEDS: Torsemide 20 MG TAB 40 MG PO (07:47)
[2023-12-16] MEDS: Cyanocobalamin 500 MCG TAB 1000 MCG PO (07:47)
[2023-12-16] MEDS: Sodium Bicarbonate 650 MG TAB 1300 MG PO (07:47)
[2023-12-16] MEDS: Omeprazole 20 MG CAPCR 40 MG PO (07:47)
[2023-12-16] MEDS: Vitamins B Comp w/C TAB 1 TAB PO (07:47)
[2023-12-16] MEDS: Aspirin E.C. 81 MG TABEC PO (07:47)
[2023-12-16] MEDS: Chlorthalidone 25 MG TAB PO (07:48)
[2023-12-16] MEDS: Multivitamin TAB 1 TAB PO (07:48)
[2023-12-16] MEDS: Atorvastatin 20 MG TAB PO (07:48)
[2023-12-16] MEDS: Azithromycin 250 MG TAB PO (07:48)
[2023-12-16] MEDS: amLODIPine 10 MG TAB PO (07:48)
[2023-12-16 07:54] VITALS: BP 146/61; PULSE 64; RESP 16; TEMP 36.4; O2SAT 97
[2023-12-16] MEDS: Insulin Aspart 300 UNITS/3 ML PEN SC ×2 (08:24→12:12)
[2023-12-16 09:25] VITALS: PULSE 63; RESP 12; RESP 5; O2SAT 93
[2023-12-16] MEDS: Albuterol/Ipratropium 3 ML UPD VIAL UPD (09:25)
[2023-12-16 09:41] VITALS: PULSE 64; RESP 9; O2SAT 97
[2023-12-16] MEDS: Insulin Glargine 300 UNITS/3 ML PEN 56 UNITS SC (09:58)
[2023-12-16] MEDS: Fluticasone NASAL SPRAY 16 GM BTL NS (10:01)
[2023-12-16] MEDS: hydrALAZINE 25 MG TAB 100 MG PO (10:02)
[2023-12-16] MEDS: Primidone 50 MG TAB 150 MG PO (10:02)
[2023-12-16] MEDS: Calcitriol 0.25 MCG CAP 0.5 MCG PO (10:03)
[2023-12-16] MEDS: predniSONE 20 MG TAB 40 MG PO (10:04)
--- NOTE | 2023-12-16 11:58 | PDOC.CMDIS ---
Date of service: 12/16/23 Time of Service: 11:58 LACE Index Scoring Tool Questions: Length of Stay (in days): 1 Was the patient admitted via the E.D.?: Yes Comorbidities: Chronic Pulmonary Disease and Liver or Renal Disease E.D. Visits: 2 Answers: Total Score: 11 Risk of Readmission: High Risk Care Management Discharge Plan Reason for Hospitalization: Community acquired pneumonia Discharge Plan: Reuben is discharged home via private vehicle with family. He will follow up with community providers and his discharge plan of care as instructed. Patient/Family Education Needs: Review discharge instructions, limitations, medications and plan to follow up with community providers. Discuss ask me three. SDOH Health Related Social Needs: Health related social needs material hardship Health related social needs: material hardship(utilities)(Z59.87)
[2023-12-16] MEDS: Albuterol HFA 8 GM 60 PUFF INH IH (13:56)
--- NOTE | 2023-12-16 14:19 | CHAPLAIN ---
Reuben was sitting up in bed and his was with him when I visited. I explained my role and offered support. Reuben believes he'll be discharged home today.
[2023-12-16] MEDS: cefTRIAXone 1 GM/50 ML BAG IVPB (14:26)
--- NOTE | 2023-12-16 15:24 | W.PM.DS.N ---
Date of service: 12/16/23 Time of Service: 15:24 DS: Diagnosis Discharge Diagnosis (1) CAP (community acquired pneumonia): Status: Acute (2) Macrocytic anemia: Status: Acute (3) COPD (chronic obstructive pulmonary disease): Status: None (4) HTN (hypertension): Status: Chronic (5) Diabetes mellitus: Status: Chronic (6) Chronic kidney disease: Status: Chronic (7) Kidney transplant recipient: Status: Acute (8) MELISSA (obstructive sleep apnea): Status: Chronic Discharge Plan Disposition Patient Disposition: Home Condition: Fair Discharge Details Reason For Visit: Pneumonia, Stage 5 ckd, anemia Admit Date/Time: 12/15/23 17:55 Admit Provider: Rayo Warner Attending Provider: Rayo Warner Primary Care Provider: Violetta Sanford [facility] Course Hospital Course: 68 yo M with stage 5 CKD with failing renal transplant, chronic anemia, CAD, and COPD who was admitted with 4 days of rhinorrhea, cough, and shortness of breath. CT showed lung infiltrate, wheezing on exam. He was anemic with hgb 7.2 up from 7.0 the day before when he got his Aranesp. His creatinine was 6.7 but his electrolytes were normal. He was started on ceftriaxone and azithromycin and IV steroids. He felt better the next day. His hemoglobin and creatinine were both slightly imrpoved. His potassium increased but was still normal. He discharged on oral prednisone and antibiotics for three more days starting the day after discharge. He was also given levalbuterol as albuterol/ipratropium helped but worsened his tremor. He has nephrology and primary care follow up. Home Meds and New Rx's Prescriptions: New azithromycin 250 mg Tablet 250 mg PO DAILY Qty: 3 0RF dextromethorphan-guaifenesin 10-100 mg/5 mL Syrup 10 ml PO Q6H PRN PRNQty: 0 0RF cefdinir 300 mg capsule 300 mg PO DAILY Qty: 3 0RF Rx Instructions: start 12/16. tolerates cephalosporin prednisone 20 mg tablet 40 mg PO DAILY Qty: 6 0RF Rx Instructions: start 12/16 levalbuterol tartrate 45 mcg/actuation HFA aerosol inhaler 2 inh inhalation Q6H PRNQty: 15 2RF Continued folic acid 1 mg tablet 1 mg PO DAILY mycophenolate mofetil [CellCept] 250 mg capsule 500 mg PO BID calcitriol 0.25 mcg capsule 0.5 mcg PO DAILY acetaminophen 325 mg capsule 650 mg PO Q6H PRN amlodipine 10 mg tablet 10 mg PO DAILY atorvastatin 20 mg tablet 20 mg PO DAILY chlorthalidone 25 mg tablet 25 mg PO DAILY primidone 50 mg tablet 150 mg PO BID metoprolol succinate 50 mg tablet extended release 24 hr 50 mg PO DAILY torsemide 20 mg tablet 40 mg PO DAILY insulin glargine U-300 conc [Toujeo Max U-300 SoloStar] 300 unit/mL (3 mL) insulin pen 70 unit subcut DAILY Aranesp (in polysorbate) 200 mcg/mL solution 300 mcg SUBCUT QWEEK cholecalciferol (vitamin D3) 50 mcg (2,000 unit) capsule 50 mcg PO DAILY mecobalamin (vitamin B12) 1,000 mcg tablet,chewable 1,000 mcg PO DAILY aspirin [[place] Low Dose Aspirin] 81 MG tablet,delayed release (DR/EC) 81 mg PO DAILY omeprazole [Prilosec] 40 MG capsule,delayed release(DR/EC) 40 mg PO DAILY montelukast 10 MG tablet 10 mg PO DAILY multivitamin [Daily Multi-Vitamin] 1 EACH tablet 1 ea PO DAILY hydralazine 100 mg tablet 100 mg PO TID fluticasone propionate 50 mcg/actuation spray,suspension 1 spray intranasal DAILY Rx Instructions: administer into each nostril vitamin B complex [B Complex-Vitamin B12] Tablet 1 tab PO BID tacrolimus [Prograf] 1 mg capsule 1 mg PO Q12H sodium bicarbonate 650 mg tablet 1,300 mg PO BID insulin aspart U-100 [Novolog FlexPen U-100 Insulin] 100 unit/mL Insulin Pen 0 units subcut 0800,1200,1700 Qty: 0 0RF Rx Instructions: sliding scale Inhaler, Assist Devices [Pocket Chamber] 1 ea miscellaneous DIRECTED Qty: 0 0RF ipratropium-albuterol 0.5 mg-3 mg(2.5 mg base)/3 mL solution for nebulization 3 ml inhalation Q6H PRN (Reason: Wheezing) Qty: 24 2RF Discharge Instructions Instructions: COPD (Chronic Obstructive Pulmonary Disease) (DC) Additional Instructions: take the prednisone and both antibiotics for 3 more days starting TuesdayDecember 16 I sent medicine for the nebulizer as well as a new inhaler that should cause less tremor (levalbuterol or Xopenex) Continue your other medication and follow up with nephrology Stand Alone Forms: Nursing Discharge Form Activity:: Activity as Tolerated Equipment/Supplies:: No Equipment Needed Diet:: Carb Counting Discharge Orders Discharge Orders: Discharge Order (Routine); Ordered 12/16/23 Ordered By: Rayo Warner DS: Summary Time Spent with Patient providing and/or coordinating discharge services: Greater than 30 minutes Status at Discharge Functional status at discharge: independent ambulation (with prostheses) Overall status at discharge: patient is progressing back to baseline Mental Status: mental status grossly normal Speech and Movement: speech and movement normal Mood: congruent mood Affect: normal affect Quality:SDOH Health Related Social Needs: Health related social needs material hardship Exam Narrative Exam Narrative: GEN: Alert and oriented x 4, pleasant and cooperative, sitting up and eating, speaking in full sentences. No acute distress at rest. LUNGS: Diffuse coarse wheezing, improved after duoneb. No focal rales, moving air throughout. CV: RRR with no murmurs, gallops, or rubs. EXT: Eduardo LE amputations with prostheses PSYCH: normal mood and affect, nl thought process Psych Mental Status: mental status grossly normal Speech and Movement: speech and movement normal Mood: congruent mood Affect: normal affect DS: Data Vitals/I&O Vitals and I&O: Vital Signs Temperature 36.4 C L 12/16/23 07:54 Temperature Source Temporal Artery Scan 12/16/23 07:54 Pulse 64 12/16/23 09:41 Pulse Rhythm Regular 12/15/23 19:23 Pulse 82 12/15/23 18:50 Respiratory Rate 12 12/16/23 09:25 Respiratory Effort Short of Breath 12/15/23 19:23 Respiratory Depth Shallow 12/15/23 19:23 Respiratory Pattern Tachypnea 12/15/23 19:23 Blood Pressure 146/61 H 12/16/23 07:54 Blood Pressure Mean 110 12/15/23 18:46 Blood Pressure Position Sitting 12/15/23 13:26 Pulse Oximetry 97 12/16/23 09:41 Oxygen Delivery Method Room Air 12/16/23 09:25 Oxygen Flow Rate 0 12/16/23 09:25 Pain Level 7 12/16/23 07:54 Intake & Output 12/15/23 12/16/2324 23:59 11:59 23:59 Intake Total 60 / 60 850 / 1100 250 / 1100 Output Total 675 / 675 300 / 300 Balance -615 / -615 550 / 800 250 / 800 Weight 119.2 kg Intake: IV 60 / 60 Oral 850 / 1100 250 / 1100 Output: Urine 675 / 675 300 / 300 Other: Urine Color Yellow Yellow Urine Appearance Clear Clear Urine Odor Normal Normal Voiding Methods Urinal Urinal Data Completed and Pending Labs on day of discharge: Labs from last 24 hours 12/16/23 12/15/23 05:50 16:10 WBC 5.23 RBC 2.43 L Hgb 7.4 L Hct 24.7 L MCV 102 H MCH 30.5 MCHC 30.0 L RDW 14.7 H Plt Count 148 MPV 8.9 Immature Gran % 0.6 Neutrophils % 78.2 Lymphocytes % 19.3 Monocytes % 1.7 Eosinophils % 0.0 Basophils % 0.2 Nucleated RBC % 0.0 Absolute Neutrophils 4.09 Absolute Lymphocytes 1.01 L Absolute Monocytes 0.09 L Absolute Eosinophils 0.00 Absolute Basophils 0.01 Sodium 138 Potassium 5.1 Chloride 102 Carbon Dioxide 24.2 Anion Gap 11.8 H BUN 71 H Creatinine 6.6 H* Est GFR (CKD-EPI 2020) 8.41 Glucose 293 H Calcium 9.9 Urine Color Yellow Urine Clarity Sl Cloudy Urine pH 7.0 Ur Specific [place] 1.020 Urine Protein >=300 H Urine Ketones Negative Urine Blood Negative Urine Nitrite Negative Urine Bilirubin Negative Urine Urobilinogen 0.2 Ur Leukocyte Esterase Negative Urine RBC 0-2 Urine WBC 3-5 Ur Epithelial Cells Negative Urine Crystals Negative Urine Bacteria Negative Urine Casts Negative Urine Mucus Trace Ur Culture Indicated? No Urine Glucose 250 H 12/15/23 15:22 Blood Blood Culture - Pending 12/15/23 14:28 Blood Blood Culture - Pending Preliminary micro results at discharge 12/15/23 15:22 Blood Culture - Pending Blood 12/15/23 14:28 Blood Culture - Pending Blood PFSH All Active Problems Pneumonia (Acute) Anemia (Chronic) DVT prophylaxis (Acute) CAP (community acquired pneumonia) (Acute) Basal cell carcinoma (Acute) Delayed wound healing (Acute ~2019) burn left arm happened 2019 fistula near wound Abnormal electrocardiogram (Acute) Phantom pain (Acute) Tremor (Acute) per pCP treated with primidone RH HTN (hypertension) (Chronic) Diabetes mellitus (Chronic) Edentulous (Acute) Esophageal foreign body (Acute) Food impaction of esophagus (Acute) Macrocytic anemia (Acute) Gastroparesis diabeticorum (Acute) Kidney transplant recipient (Acute) Chronic kidney disease (Chronic) Hypertension (Chronic) Hyperlipidemia (Chronic) CAD (coronary artery disease) (Chronic) GERD (gastroesophageal reflux disease) (Chronic) Asthma (Chronic) Chronic anxiety (Chronic) Chronic depression (Chronic) Intention tremor (Chronic) Status post appendectomy (Acute) Physical medicine and rehabilitation procedures (Acute 06/27/13) Dysphagia (Acute) CHF (congestive heart failure) (Acute) Diastolic CHF (Acute) Acute kidney injury superimposed on chronic kidney disease (Acute) Uncontrolled insulin dependent diabetes mellitus (Acute) Ambulatory dysfunction (Acute) MELISSA (obstructive sleep apnea) (Chronic) Wenckebach second degree AV block (Acute) Fluid level behind tympanic membrane of left ear (Acute) Sensory hearing loss, bilateral (Acute) Tinnitus, bilateral (Acute) Osteoma of ear canal (Acute) Atrial fibrillation (Chronic) per pcp Pt had one episode 11/10 RH Kidney transplant recipient (Chronic) 2005 Medical History Left lower lobe pneumonia Sepsis CAP (community acquired pneumonia) Infection of amputation stump of right lower extremity Tubular adenoma of colon (02/01/17) Abscess of axilla (05/11/13) Personal history of allergy to other antibiotic agent Vitamin B 12 deficiency Adenomatous colon polyp History of colon polyps Lumbar back pain Erectile dysfunction Anxiety and depression Hydrocele Intention tremor Tricuspid insufficiency Obesity Stage 3 severe COPD by GOLD classification Hyperlipidemia Sciatica GERD (gastroesophageal reflux disease) MELISSA (obstructive sleep apnea) per PCP not using CPAP 01/20/23 RH Surgical History Status post bilateral below knee amputation History of bilateral cataract extraction 1999 H/O sinus surgery 2010 History of cardiac catheterization 2005 History of appendectomy 2013 History of colonoscopy (~10/2020) History of below-knee amputation of both lower extremities 2000 and 2010 Hx of amputation below knee Kidney transplant recipient 01/08/2014 EGD - MAC (04/02/16) Colonoscopy - MAC (02/01/17) Family History Father , cancer at 64 No problems noted. Brother , SM Cell Cancer No problems noted. Sister Breast cancer Mother No problems noted. Social History Smoking/Tobacco Use Status: Former Tobacco Use Quit Date: 07/25/90 Tobacco: How many years used: 15 Smoking risk assessment performed?: Yes Alcohol Intake: never Drug use: Never Substance use type: does not use Household members: spouse Housing: house What is your relationship status?: Panel score (0-1 are the most socially isolated patients): 1 Do you feel safe at home: Yes Do you feel safe in your relationship?: Yes Time Spent with Patient Time Spent with Patient: 45-69 minutes Time was spent: preparing to see the patient(eg.review tests), obtaining and/or reviewing separately otained hiistory, ordering medications,tests, procedures, referring, communicating with other health director critical care, indepentently interpreting results, counseling the patient and care coordination
--- NOTE | 2023-12-17 07:04 | NUR.NOTE ---
Accessed chart to reconcile orders for EKG with EKG?s in [facility]. Duplicate order cancelled. Nursing Note:
== END 2023-12-16 16:05 | disposition home or self-care (01) ==
LOC: ER 18:09 → MS 19:18
PROVIDERS: Physician Assistant; Admitting Provider Family Medicine; Emergency Provider Physician Assistant; PCP Family Medicine; Visit Provider Family Medicine
DX: J18.9 Pneumonia, unspecified organism (principal); D53.9 Nutritional anemia, unspecified; J44.0 Chronic obstructive pulmonary disease with (acute) lower respiratory infection; E11.22 Type 2 diabetes mellitus with diabetic chronic kidney disease; Z94.0 Kidney transplant status; G47.33 Obstructive sleep apnea (adult) (pediatric); D63.1 Anemia in chronic kidney disease; N18.5 Chronic kidney disease, stage 5; Z79.4 Long term (current) use of insulin; D84.821 Immunodeficiency due to drugs; E11.43 Type 2 diabetes mellitus with diabetic autonomic (poly)neuropathy; K31.84 Gastroparesis; E78.5 Hyperlipidemia, unspecified; I25.10 Atherosclerotic heart disease of native coronary artery without angina pectoris; K21.9 Gastro-esophageal reflux disease without esophagitis; F41.9 Anxiety disorder, unspecified; F32.A Depression, unspecified; G25.2 Other specified forms of tremor; I48.20 Chronic atrial fibrillation, unspecified; H90.3 Sensorineural hearing loss, bilateral; I50.30 Unspecified diastolic (congestive) heart failure; I13.2 Hypertensive heart and chronic kidney disease with heart failure and with stage 5 chronic kidney disease, or end stage renal disease; I44.1 Atrioventricular block, second degree; Z79.899 Other long term (current) drug therapy
CPT/HCPCS: 00123; 36415; 71250; 80048; 80053; 82805; 86850; 86900; 86901; 87040; 87637; 93005; 94640; 96365; 96366; 96372; 96375; 96376; 99285; 71046; 81003; 81015; 83605; 83880; 84484; 85025; 85610; 93010; 94664; 94667; 94760; 99222; 99239; G0378; J0696; J1644; J1815; J2919; J7512; J7620

== ENCOUNTER 2023-12-20 01:40 | Outpatient (CLI) | payer MEDICARE, OTHER, SELFPAY ==
[2023-12-20 12:49] LABS: Abs Immature Grans 0.04 10^3/uL (0.0-0.06); Absolute Basophil Count 0.01 10^3/uL (0.0-0.2); Absolute Eosinophil Count 0.01 10^3/uL (0.0-0.7); Absolute Lymphocyte Count 0.84 10^3/uL (1.2-3.4); Absolute Monocyte Count 0.45 10^3/uL (0.1-0.8); Absolute Neutrophil Count 3.78 10^3/uL (1.2-6.7); Basophils % 0.2 %; Eosinophils % 0.2 %; HCT 23.8 % (40.0-50.0); HGB 7.3 g/dL (13.5-17.5); Immature Grans % 0.8 %; Lymphocytes % 16.4 %; MCH 30.7 pg (27.0-33.0); MCHC 30.7 % (32.0-36.0); MCV 100 fL (80-95); MPV 8.4 fL (8.0-11.0); Monocytes % 8.8 %; Neutrophils % 73.6 %; Platelet Count 180 10^3/uL (130-400); RBC 2.38 10^6/uL (4.36-5.78); RDW 14.5 % (11.8-14.1); RDW-SD 50.9 fL; WBC 5.13 10^3/uL (4.4-10.8)
[2023-12-20 13:19] LABS: Anion Gap 11.5 mmol/L (3-11); CO2 24.5 mmol/L (21.0-32.0); Calcium 9.5 mg/dL (8.5-10.1); Chloride 103 mmol/L (98-107); Estimated GFR 9.62 (mL/min/1.73m2); Glucose 298 mg/dL (74-106); Potassium 4.7 mmol/L (3.5-5.1); Sodium 139 mmol/L (136-145)
[2023-12-20 13:36] LABS: BUN 87 mg/dL (7-18)
[2023-12-20 13:37] LABS: CREATININE 5.9 mg/dL (0.70-1.30)
[2023-12-21 10:04] LABS: HBs Antibody, Quant <3.1 mIU/mL (See Note); Hepatitis B Surface Ab Negative (See Note)
[2023-12-21 10:12] LABS: Tacrolimus <2.0 ng/mL (See Note)
[2023-12-21 10:18] LABS: Hepatitis B Surface Ag Negative (Negative)
== END 2023-12-20 01:41 | disposition home or self-care (01) ==
LOC: LBO 01:48
PROVIDERS: PCP Family Medicine; Visit Provider Internal Medicine Nephrology
DX: N18.4 Chronic kidney disease, stage 4 (severe) (principal)
CPT/HCPCS: 36415; 80048; 86706; 87340; 80197; 82040; 85025

== ENCOUNTER 2023-12-28 05:36 | Outpatient (CLI) | payer MEDICARE, OTHER, SELFPAY ==
--- NOTE | 2023-12-28 12:45 | W.NUTRFU ---
Date of service: 12/28/23 Time of Service: 11:30 Nutrition Note NOTE: Reuben comes in for referred nutrition appt with his , Maureen regarding diabetes education Reuben has history of kidney disease and his transplanted kidney is currently failing - provider commenting that dialysis is likely to resume soon. Pt reports complication in resuming dialysis with cancer on top of his fistula - reports they were told this was treatable but will need to move the fistula.Pt ambulates little and rides in scooter due to bilateral BKA's. Uses CGM at home and reports that when checked against glucometer will be 20 points lower than actual. Reports initially taking Levemir at 50units AM and 80 units PM but insurance stopped covering and will use this up and then switch to toujeo at 65nits AM. Takes novolog on sliding scale TID with meals but states sliding scale is adapted by himself and knows how but to take - if its 150 I take nothing, it its 200 I take 15 units... Drinks: coffee 1-2 times per week with milk, iced tea and hot tea. reports eating 3 meals and 1 snack at night - usually chips rice kirspies with berries and whole milk at breakfast and drinks 16oz oj with his meds in the morning lunch will be egg or tuna s/w with cheese and LS canned veggies and water Dinner last night was leftover shepards pie. Reviewed lower protein needs at this time with low kidney fxn but will need to increase protein if/when dialysis resumes. encouraged plant protein to replace some animal choices and highlighted beans/lentils, nuts and seeds, whole grains as these will all help to increase fiber intake. Suggested avoiding so much juice as this is excessive. REviewed low sodium diet and encouraged menu planning for 2-3 carb choices per meal and change night time snack to include 2-3 food groups of healthier food choices and gave some examples. Reviewed some sample menu options to use reoutinely at his 3 meals for increased fiber and moderate protein intake. pt took my card with contact info to call if needing more guidance or wants to work more on menu planning Time Spent in Nutritional Counseling and Treatment: 30 min
== END 2023-12-28 05:37 | disposition home or self-care (01) ==
LOC: DS 05:40
PROVIDERS: PCP Family Medicine; Visit Provider Dietitian, Registered
DX: E11.21 Type 2 diabetes mellitus with diabetic nephropathy (principal); Z79.4 Long term (current) use of insulin; N18.5 Chronic kidney disease, stage 5; Z71.3 Dietary counseling and surveillance
CPT/HCPCS: 00123; 97802

== ENCOUNTER 2024-01-09 12:52 | Emergency (ER) | payer MEDICARE, OTHER, SELFPAY ==
[2024-01-09] VITALS (12 sets, daily range): BP systolic 122–140; BP diastolic 36–47; PULSE 72–89; RESP 3–26; TEMP 37; O2SAT 92–100
--- NOTE | 2024-01-09 13:00 | RT.EKG_ITS ---
APPROVED REPORT Exam: Resting ECG Reason for Exam: dyspnea Patient Location: E HR:75 bpm ECG Measurements Heart Rate 75 AXIS SD [id number] P [id number] QRSd 162 QRS -59 QT 437 T 39 QTc 489 Conclusion Atrial fibrillation...? atrial activity RBBB and LAFB...QRSd >120mS, axis(-40,240)
--- NOTE | 2024-01-09 13:22 | ED.GENADUL_ITS ---
Discharge Plan Disposition Patient Disposition: Home Condition: Stable Discharge Details Clinical Impression: Cough, COPD exacerbation Primary Care Provider: Violetta Sanford ED Provider: Alejo Carlisle Home Meds and New Rx's Prescriptions: New azithromycin 500 mg tablet See Rx Instructions .ROUTE .COMPLEX Qty: 6 0RF Rx Instructions: take 500 mg today (day 1), then 250 mg for 4 days (days 2-5) cefdinir 300 mg capsule 300 mg PO DAILY 7 Days Qty: 7 0RF prednisone 20 mg tablet 60 mg PO DAILY 4 Days Qty: 12 0RF Continued folic acid 1 mg tablet 1 mg PO DAILY mycophenolate mofetil [CellCept] 250 mg capsule 500 mg PO BID calcitriol 0.25 mcg capsule 0.5 mcg PO DAILY acetaminophen 325 mg capsule 650 mg PO Q6H PRN amlodipine 10 mg tablet 10 mg PO DAILY atorvastatin 20 mg tablet 20 mg PO DAILY chlorthalidone 25 mg tablet 25 mg PO DAILY primidone 50 mg tablet 150 mg PO BID metoprolol succinate 50 mg tablet extended release 24 hr 50 mg PO DAILY torsemide 20 mg tablet 40 mg PO DAILY insulin glargine U-300 conc [Toujeo Max U-300 SoloStar] 300 unit/mL (3 mL) insulin pen 70 unit subcut DAILY Aranesp (in polysorbate) 200 mcg/mL solution 300 mcg SUBCUT QWEEK cholecalciferol (vitamin D3) 50 mcg (2,000 unit) capsule 50 mcg PO DAILY mecobalamin (vitamin B12) 1,000 mcg tablet,chewable 1,000 mcg PO DAILY aspirin [[place] Low Dose Aspirin] 81 MG tablet,delayed release (DR/EC) 81 mg PO DAILY omeprazole [Prilosec] 40 MG capsule,delayed release(DR/EC) 40 mg PO DAILY montelukast 10 MG tablet 10 mg PO DAILY multivitamin [Daily Multi-Vitamin] 1 EACH tablet 1 ea PO DAILY hydralazine 100 mg tablet 100 mg PO TID fluticasone propionate 50 mcg/actuation spray,suspension 1 spray intranasal DAILY Rx Instructions: administer into each nostril vitamin B complex [B Complex-Vitamin B12] Tablet 1 tab PO BID tacrolimus [Prograf] 1 mg capsule 1 mg PO Q12H sodium bicarbonate 650 mg tablet 1,300 mg PO BID insulin aspart U-100 [Novolog FlexPen U-100 Insulin] 100 unit/mL Insulin Pen 0 units subcut 0800,1200,1700 Qty: 0 0RF Rx Instructions: sliding scale Inhaler, Assist Devices [Pocket Chamber] 1 ea miscellaneous DIRECTED Qty: 0 0RF dextromethorphan-guaifenesin 10-100 mg/5 mL Syrup 10 ml PO Q6H PRN PRNQty: 0 0RF levalbuterol tartrate 45 mcg/actuation HFA aerosol inhaler 2 inh inhalation Q6H PRNQty: 15 2RF ipratropium-albuterol 0.5 mg-3 mg(2.5 mg base)/3 mL solution for nebulization 3 ml inhalation Q6H PRN (Reason: Wheezing) Qty: 24 2RF Discharge Instructions Additional Instructions: 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 Date/Time Provider Initiated Documentation: 01/09/24 12:53 . Limitations to Documentation: no limitations . Information obtained by: patient . History of Present Illness 68 year old M presents to the emergency department with the chief complaint of shortness of breath, described as moderate, Patient started experiencing this week(s) (2) and it has been constant. No relieving factors improve symptom(s), No exacerbating factors reported . Patient notes cough; denies chest pain and fever/chills. Patient did receive the following treatments prior to arrival, none Related Data Home Medications Medication Instructions Recorded Confirmed aspirin 81 mg tablet,delayed 81 mg PO DAILY 10/31/12 01/09/24 release ([place] Low Dose Aspirin) montelukast 10 mg tablet 10 mg PO DAILY 10/31/12 01/09/24 omeprazole 40 mg capsule,delayed 40 mg PO DAILY 10/31/12 01/09/24 release (Prilosec) multivitamin (Daily Multi-Vitamin 1 ea PO DAILY 05/10/13 01/09/24 tablet) folic acid 1 mg tablet 1 mg PO DAILY 06/12/18 01/09/24 insulin aspart U-100 100 unit/mL 0 units subcut 0800,1200,1700 #0 mL 04/24/19 06/17/24 (3 mL) subcutaneous pen (Novolog FlexPen U-100 Insulin aspart) fluticasone propionate 50 1 spray intranasal DAILY 09/04/20 01/09/24 mcg/actuation nasal spray,suspension hydralazine 100 mg tablet 100 mg PO TID 09/04/20 01/09/24 tacrolimus 1 mg capsule, 1 mg PO Q12H 09/04/20 01/09/24 immediate-release (Prograf) vitamin B complex (B 1 tab PO BID 09/04/20 01/09/24 Complex-Vitamin B12 tablet) calcitriol 0.25 mcg capsule 0.5 mcg PO DAILY 04/14/21 01/09/24 mycophenolate mofetil 250 mg 500 mg PO BID 04/14/21 01/09/24 capsule (CellCept) Inhaler, Assist Devices [Pocket 1 ea miscellaneous DIRECTED ##0 01/16/23 01/09/24 Chamber] sodium bicarbonate 650 mg tablet 1,300 mg PO BID 01/24/23 01/09/24 acetaminophen 325 mg capsule 650 mg PO Q6H PRN 10/19/23 01/09/24 amlodipine 10 mg tablet 10 mg PO DAILY 10/19/23 01/09/24 atorvastatin 20 mg tablet 20 mg PO DAILY 10/19/23 01/09/24 chlorthalidone 25 mg tablet 25 mg PO DAILY 10/19/23 01/09/24 cholecalciferol (vitamin D3) 50 50 mcg PO DAILY 10/19/23 01/09/24 mcg (2,000 unit) capsule darbepoetin cristy in polysorbat 200 300 mcg subcut QWEEK 10/19/23 01/09/24 mcg/mL in polysorbate injection (Aranesp) insulin glargine U-300 conc 300 70 unit subcut DAILY 10/19/23 01/09/24 unit/mL (3 mL) subcutaneous pen (Toujeo Max U-300 SoloStar) mecobalamin (vitamin B12) 1,000 1,000 mcg PO DAILY 10/19/23 01/09/24 mcg chewable tablet metoprolol succinate 50 mg 50 mg PO DAILY 10/19/23 01/09/24 tablet,extended release 24 hr primidone 50 mg tablet 150 mg PO BID 10/19/23 01/09/24 torsemide 20 mg tablet 40 mg PO DAILY 10/19/23 01/09/24 dextromethorphan-guaifenesin 10 10 ml PO Q6H PRN PRN #0 mL 12/16/23 01/09/24 mg-100 mg/5 mL oral syrup ipratropium 0.5 mg-albuterol 3 mg 3 ml inhalation Q6H PRN Wheezing 12/16/23 01/09/24 (2.5 mg base)/3 mL nebulization #24 units soln levalbuterol tartrate 45 2 inh inhalation Q6H PRN #15 grams 12/16/23 01/09/24 mcg/actuation aerosol inhaler azithromycin 500 mg tablet See Rx Instructions PO .COMPLEX #6 01/09/24 tabs cefdinir 300 mg capsule 300 mg PO DAILY 7 days #7 caps 01/09/24 prednisone 20 mg tablet 60 mg (3 x 20 mg) PO DAILY 4 days 01/09/24 #12 tabs Previous Rx's Medication Instructions Recorded insulin aspart U-100 100 unit/mL 0 units subcut 0800,1200,1700 #0 mL 11/15/18 (3 mL) subcutaneous pen (Novolog FlexPen U-100 Insulin aspart) Inhaler, Assist Devices [Pocket 1 ea miscellaneous DIRECTED ##0 01/16/23 Chamber] dextromethorphan-guaifenesin 10 10 ml PO Q6H PRN PRN #0 mL 12/16/23 mg-100 mg/5 mL oral syrup ipratropium 0.5 mg-albuterol 3 mg 3 ml inhalation Q6H PRN Wheezing 12/16/23 (2.5 mg base)/3 mL nebulization #24 units soln levalbuterol tartrate 45 2 inh inhalation Q6H PRN #15 grams 12/16/23 mcg/actuation aerosol inhaler azithromycin 500 mg tablet See Rx Instructions PO .COMPLEX #6 01/09/24 tabs cefdinir 300 mg capsule 300 mg PO DAILY 7 days #7 caps 01/09/24 prednisone 20 mg tablet 60 mg (3 x 20 mg) PO DAILY 4 days 01/09/24 #12 tabs Allergies Allergy/AdvReac Type Severity Reaction Status Date / Time levofloxacin Allergy Mild Unknown Verified 01/09/24 13:01 sulfamethoxazole Allergy Mild Unknown Verified 01/09/24 13:01 [From Bactrim] trimethoprim [From Bactrim] Allergy Mild Unknown Verified 01/09/24 13:01 doxycycline Allergy Unknown Other (See Verified 01/09/24 13:01 Comment) tree nut Allergy Unknown Other (See Verified 01/09/24 13:01 Comment) clindamycin Allergy Skin Rash Verified 01/09/24 13:01 ibuprofen Allergy Other (See Verified 01/09/24 13:01 Comment) Penicillins Allergy SWELLING Verified 01/09/24 13:01 lisinopril AdvReac KIDNEY Verified 01/09/24 13:01 SHUT DOWN yaneth inhibitors Allergy Mild Skin Rash Uncoded 01/09/24 13:01 CATS & BIRDS AdvReac Intermediate WHEEZING Uncoded 01/09/24 13:01 General Stated Complaint: RespSymp RADHA: 3 Review of Systems All systems reviewed & are unremarkable except as noted in HPI and below Constitutional Constitutional: Denies chills, Denies fever(s) and Denies weakness Cardiovascular Cardiovascular: Denies chest pain and Reports dyspnea Respiratory Respiratory: Reports cough and Reports dyspnea Gastrointestinal Gastrointestinal: Denies abdominal pain, Denies nausea and Denies vomiting Genitourinary Genitourinary: Denies dysuria Musculoskeletal Musculoskeletal: Denies joint swelling Integumentary/Breasts Skin/Breast: Denies rash Neurologic Neurologic: Denies weakness Exam Const General: no acute distress Orientation: alert [facility] Head: normal to inspection Ears: external ears normal General nose exam: external nose normal Mouth: moist mucous membranes Eyes General: appearance normal, both eyes and all related structures Neck Neck: normal visual inspection Resp Effort & Inspection: normal respiratory effort Auscultation: wheezes Cardio Jugular venous pressure: no JVD Rate: regular rate GI Palpation: soft and nontender Skin General skin exam: no rashes or lesions noted Neuro General: patient alert and patient oriented x3 Psych Mental Status: mental status grossly normal Course Vital Signs Vital signs: Vital Signs Temperature 37.0 C 01/09/24 12:55 Pulse 82 01/09/24 12:55 Respiratory Rate 01/09/24 12:55 Blood Pressure 140/47 L 01/09/24 12:55 Pulse Oximetry 98 01/09/24 12:55 Temperature 37.0 C 01/09/24 13:08 Temperature Source Temporal Artery Scan 01/09/24 13:08 Pulse 82 01/09/24 13:08 Respiratory Rate 22 01/09/24 13:08 Respiratory Effort Short of Breath 01/09/24 13:09 Respiratory Depth Normal 01/09/24 13:09 Blood Pressure 140/47 L 01/09/24 13:08 Blood Pressure Position Sitting 01/09/24 13:08 Pulse Oximetry 98 01/09/24 13:08 Oxygen Delivery Method Room Air 01/09/24 13:08 Oxygen Flow Rate 0 01/09/24 13:08 Pain Level 0 01/09/24 13:08 Medical Decision Making 68-year-old male with a history of chronic kidney disease stage V, A-fib, asthma, COPD, who was admitted in November for COPD exacerbation and possibly pneumonia was on cefpodoxime and azithromycin improved with that as well as prednisone comes in with 2 weeks of recurrent shortness of breath and cough. He denies any chest pain, no chest pressure, no fevers, no vomiting or diaphoresis. He is speaking in full sentences on exam. He has no JVD, he does have wheezing bilaterally in the apices and at the bases. Given his history suspect COPD exacerbation will treat with levalbuterol as he has less tremors as a side effect from this than a DuoNeb and and methylprednisolone. Will also check a troponin, CBC, CMP, procalcitonin and obtain a chest x-ray. Patient's labs show hemoglobin 6.6 but baseline is normally 7.0. Otherwise no significant changes from baseline. He is feeling significantly better, requesting discharge. I discussed results with him and advise he may benefit from a blood transfusion. He has medical decision-making capacity at this current time wants to hold off on having a blood transfusion as he states he gets weekly erythropoietin stimulating injections and usually has a good response to that. 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 There is baseline 7.0 and down to 6.6 today feel it is reasonable to hold off on transfusion currently but he understands strict return precautions. He will also follow-up with his PCP. He responded well to prednisone along with azithromycin cefdinir so we will reinitiate these antibiotics. Differential Diagnosis Differential Diagnosis: COPD, pneumonia Medical Records Medical records reviewed: Yes I reviewed the patient's medical records. Imaging Data Radiologic Study: Attestation: I personally reviewed and interpreted this imaging study as follows: Imaging: X-Ray Radiologist's impression: No acute findings Lab Data Lab results reviewed: Yes I reviewed the patient's lab results. ECG Data Attestation: I personally reviewed and interpreted this ECG (s) as follows: Prior ECG tracings: available for review Interpretation: Atrial fibrillation, rate of 75, no significant changes from prior Quality:SDOH Health Related Social Needs: Health related social needs material hardship PFSH All Active Problems (Updated 12/17/23 @ 00:01 by LYLA LUNA) COPD exacerbation (Acute) History of pneumonia (Acute) Cough (Acute) Pneumonia (Acute) Anemia (Chronic) CAP (community acquired pneumonia) (Acute) Basal cell carcinoma (Acute) Delayed wound healing (Acute ~2018) burn left arm happened 2019 fistula near wound Abnormal electrocardiogram (Acute) Phantom pain (Acute) Tremor (Acute) per pCP treated with primidone RH HTN (hypertension) (Chronic) Diabetes mellitus (Chronic) Edentulous (Acute) Esophageal foreign body (Acute) Food impaction of esophagus (Acute) Macrocytic anemia (Acute) Gastroparesis diabeticorum (Acute) Kidney transplant recipient (Acute) Chronic kidney disease (Chronic) Hypertension (Chronic) Hyperlipidemia (Chronic) CAD (coronary artery disease) (Chronic) GERD (gastroesophageal reflux disease) (Chronic) Asthma (Chronic) Chronic anxiety (Chronic) Chronic depression (Chronic) Intention tremor (Chronic) Status post appendectomy (Acute) Physical medicine and rehabilitation procedures (Acute 06/27/13) Dysphagia (Acute) CHF (congestive heart failure) (Acute) Diastolic CHF (Acute) Acute kidney injury superimposed on chronic kidney disease (Acute) Uncontrolled insulin dependent diabetes mellitus (Acute) Ambulatory dysfunction (Acute) Wenckebach second degree AV block (Acute) Fluid level behind tympanic membrane of left ear (Acute) Sensory hearing loss, bilateral (Acute) Tinnitus, bilateral (Acute) Osteoma of ear canal (Acute) Atrial fibrillation (Chronic) per pcp Pt had one episode 11/10 RH Kidney transplant recipient (Chronic) 2005 Medical History Left lower lobe pneumonia Sepsis CAP (community acquired pneumonia) Infection of amputation stump of right lower extremity Tubular adenoma of colon (02/01/17) Abscess of axilla (05/11/13) Personal history of allergy to other antibiotic agent Vitamin B 12 deficiency Adenomatous colon polyp History of colon polyps Lumbar back pain Erectile dysfunction Anxiety and depression Hydrocele Intention tremor Tricuspid insufficiency Obesity Stage 3 severe COPD by GOLD classification Hyperlipidemia Sciatica GERD (gastroesophageal reflux disease) MELISSA (obstructive sleep apnea) per PCP not using CPAP 01/20/23 RH Surgical History Status post bilateral below knee amputation History of bilateral cataract extraction 1999 H/O sinus surgery 2010 History of cardiac catheterization 2005 History of appendectomy 2012 History of colonoscopy (~10/2020) History of below-knee amputation of both lower extremities 2000 and 2010 Hx of amputation below knee Kidney transplant recipient 01/08/2014 EGD - MAC (04/02/16) Colonoscopy - MAC (02/01/17) Family History Father , cancer at 64 No problems noted. Brother , SM Cell Cancer No problems noted. Sister Breast cancer Mother No problems noted. Social History Smoking/Tobacco Use Status: Former Tobacco Use Quit Date: 07/25/90 Tobacco: How many years used: 15 Smoking risk assessment performed?: Yes Alcohol Intake: never Drug use: Never Substance use type: does not use Household members: spouse Housing: house What is your relationship status?: Panel score (0-1 are the most socially isolated patients): 1 Do you feel safe at home: Yes Do you feel safe in your relationship?: Yes
[2024-01-09] MEDS: Levalbuterol 1.25 MG/3 ML UPD VIAL UPD (13:30)
[2024-01-09] MEDS: methylPREDNISolone SUCC 125 MG VIAL IVP (13:30)
[2024-01-09 13:39] LABS: BE (Venous) 3 mmol/L (-2-3); HCO3 (Venous) 28 mmol/L (23-28); O2 Sat (Venous) 82 %; TCO2 (Venous) 27 mmol/L (24-29); pCO2 (Venous) 45 mmHg (41-51); pO2 (Venous) 44 mmHg
[2024-01-09 13:40] LABS: Abs Immature Grans 0.01 10^3/uL (0.0-0.06); Absolute Basophil Count 0.02 10^3/uL (0.0-0.2); Absolute Eosinophil Count 0.14 10^3/uL (0.0-0.7); Absolute Lymphocyte Count 1.27 10^3/uL (1.2-3.4); Absolute Monocyte Count 0.51 10^3/uL (0.1-0.8); Absolute Neutrophil Count 2.36 10^3/uL (1.2-6.7); Basophils % 0.5 %; Eosinophils % 3.2 %; HCT 21.8 % (40.0-50.0); Immature Grans % 0.2 %; Lymphocytes % 29.5 %; MCH 30.7 pg (27.0-33.0); MCHC 30.3 % (32.0-36.0); MCV 101 fL (80-95); MPV 8.6 fL (8.0-11.0); Monocytes % 11.8 %; Neutrophils % 54.8 %; RBC 2.15 10^6/uL (4.36-5.78); RDW 15.9 % (11.8-14.1); RDW-SD 58.4 fL; WBC 4.31 10^3/uL (4.4-10.8)
[2024-01-09 13:44] LABS: HGB 6.6 g/dL (13.5-17.5)
[2024-01-09 13:55] LABS: Diff Comment Diff Reviewed; Hypochromasia 2+; Platelet Count 159 10^3/uL (130-400)
[2024-01-09 13:58] LABS: ALT 25 U/L (16-63); AST 26 U/L (15-37); Albumin 2.7 g/dL (3.4-5.0); Alkaline Phosphatase 133 U/L (46-116); Anion Gap 11.1 mmol/L (3-11); BUN 57 mg/dL (7-18); Bilirubin, Total 0.3 mg/dL (0.2-1.0); CO2 27.9 mmol/L (21.0-32.0); Calcium 9.3 mg/dL (8.5-10.1); Chloride 102 mmol/L (98-107); Estimated GFR 8.89 (mL/min/1.73m2); Glucose 169 mg/dL (74-106); Potassium 4.2 mmol/L (3.5-5.1); Sodium 141 mmol/L (136-145); Total Protein 7.5 g/dL (6.4-8.2)
[2024-01-09 14:02] LABS: CREATININE 6.3 mg/dL (0.70-1.30)
[2024-01-09 14:05] LABS: Magnesium 2.1 mg/dL (1.8-2.4); NT-proBNP 5051 pg/mL (<300); TSH (W/Ref FT4) 1.51 uIU/mL (0.36-3.74); Troponin I < 50 ng/L (< or =60)
[2024-01-09 14:05] LABS: COVID-19 PCR Negative (Negative); Influenza A PCR Negative (Negative); Influenza B PCR Negative (Negative); RSV PCR Negative (Negative)
--- NOTE | 2024-01-09 14:06 | DI.RAD_ITS ---
Exam(s) XR CHEST 2V PA LATERAL EXAM: XR CHEST 2V PA LATERAL CLINICAL HISTORY: dyspnea, cough TECHNIQUE: 2D digital imaging was performed. Two views. COMPARISON: CT CT CHEST WO from 12/15/2023 FINDINGS: Exam is limited by poor pulmonary inflation and under penetration. HEART: Enlarged. Aorta: Not dilated. PULMONARY VASCULATURE: Normal. LUNGS: Grossly clear where visualized. PLEURAL SPACE: No pleural effusion or pneumothorax. BONE:Unremarkable for age. Soft tissues: Unremarkable. IMPRESSION: Limited exam. No acute abnormality. DATA REPOSITORY: RADIATION DOSE DELIVERED:
[2024-01-09 14:09] LABS: Source Nasopharynx
[2024-01-09 14:27] LABS: Procalcitonin 0.2 ng/mL
[2024-01-10 09:56] LABS: HBs Antibody, Quant <3.1 mIU/mL (See Note); Hepatitis B Surface Ab Negative (See Note)
[2024-01-10 10:09] LABS: Hepatitis B Surface Ag Negative (Negative)
[2024-01-10 12:57] LABS: Tacrolimus <2.0 ng/mL (See Note)
== END 2024-01-09 15:12 | disposition home or self-care (01) ==
PROVIDERS: Emergency Provider Emergency Medicine; PCP Family Medicine
DX: J44.1 Chronic obstructive pulmonary disease with (acute) exacerbation (principal); I13.2 Hypertensive heart and chronic kidney disease with heart failure and with stage 5 chronic kidney disease, or end stage renal disease; E11.22 Type 2 diabetes mellitus with diabetic chronic kidney disease; N18.5 Chronic kidney disease, stage 5; I50.32 Chronic diastolic (congestive) heart failure; I25.10 Atherosclerotic heart disease of native coronary artery without angina pectoris; E78.5 Hyperlipidemia, unspecified; I48.91 Unspecified atrial fibrillation; R05.9 Cough, unspecified; Z89.512 Acquired absence of left leg below knee; Z89.511 Acquired absence of right leg below knee; Z79.4 Long term (current) use of insulin; Z79.82 Long term (current) use of aspirin
CPT/HCPCS: 36415; 80053; 82805; 84145; 86706; 86850; 86900; 86901; 87340; 87637; 93005; 94640; 96374; 99285; 71046; 80197; 83735; 83880; 84443; 84484; 85025; 93010; 99284; J2919; J7614

== ENCOUNTER 2024-01-11 17:20 | Outpatient (CLI) | payer MEDICARE, OTHER, SELFPAY ==
[2024-01-11 17:32] LABS: Abs Immature Grans 0.04 10^3/uL (0.0-0.06); Absolute Lymphocyte Count 0.78 10^3/uL (1.2-3.4); Absolute Monocyte Count 0.27 10^3/uL (0.1-0.8); HCT 21.4 % (40.0-50.0); Immature Grans % 0.8 %; Lymphocytes % 15.6 %; MCH 31.4 pg (27.0-33.0); MCHC 30.8 % (32.0-36.0); MCV 102 fL (80-95); MPV 8.8 fL (8.0-11.0); Monocytes % 5.4 %; Neutrophils % 78.2 %; Platelet Count 200 10^3/uL (130-400); RDW 15.4 % (11.8-14.1); RDW-SD 57.1 fL; Reticulocyte 2.9 % (0.5-2.4); WBC 4.99 10^3/uL (4.4-10.8)
[2024-01-11 17:43] LABS: Basophilic Stippling Present; Diff Comment RBC Morph Reviewed
[2024-01-11 17:47] LABS: HGB 6.6 g/dL (13.5-17.5)
[2024-01-11 18:04] LABS: Iron 85 ug/dL (65-175); Total Iron Binding Capacity 190 ug/dL (250-450); Transferrin Sat 45 % (20-55)
[2024-01-11 18:33] LABS: Ferritin 238 ng/mL (26-388); TSH 0.79 uIU/Ml (0.36-3.74); Vitamin B12 1759 pg/mL (193-986)
[2024-01-11 18:34] LABS: Folate > 20.0 ng/mL (8.6-20.0)
[2024-01-13 10:12] LABS: Lambda Free Light Chain 11.61 mg/dL (0.57-2.63)
[2024-01-13 14:55] LABS: Albumin 45.5 % (55.8-66.1); Albumin g/dL 3.2 g/dL (3.6-5.2); Comment (See Note); Total Protein 7.1 g/dL (6.3-8.2)
[2024-01-13 15:42] LABS: Immunotyping, Serum (See Note)
[2024-01-14 11:46] LABS: Copper, Serum 192 mcg/dL (73-129)
== END 2024-01-11 17:21 | disposition home or self-care (01) ==
LOC: LBO 17:20
PROVIDERS: PCP Family Medicine; Visit Provider Internal Medicine Hematology & Oncology
DX: N18.4 Chronic kidney disease, stage 4 (severe) (principal); D63.1 Anemia in chronic kidney disease; R53.83 Other fatigue
CPT/HCPCS: 36415; 82525; 85045; 86850; 86900; 86901; 82607; 82728; 82746; 83540; 83550; 83883; 84165; 84443; 85025; 86320; 86880

== ENCOUNTER 2024-01-13 07:33 | Outpatient (RCR) | payer MEDICARE, OTHER, SELFPAY ==
[2024-01-13] VITALS (10 sets, daily range): BP systolic 148–161; BP diastolic 60–85; PULSE 55–65; RESP 17–18; TEMP 36.5–36.9; O2SAT 97–98
[2024-01-13] MEDS: Normal Saline Flush 10 ML SYR IVP (08:29)
[2024-01-13 08:36] LABS: Abs Immature Grans 0.05 10^3/uL (0.0-0.06); Absolute Basophil Count 0.01 10^3/uL (0.0-0.2); Absolute Lymphocyte Count 0.86 10^3/uL (1.2-3.4); Absolute Monocyte Count 0.38 10^3/uL (0.1-0.8); Absolute Neutrophil Count 4.25 10^3/uL (1.2-6.7); Basophils % 0.2 %; Immature Grans % 0.9 %; Lymphocytes % 15.5 %; MCH 31.8 pg (27.0-33.0); MCHC 31.4 % (32.0-36.0); MCV 101 fL (80-95); MPV 9.1 fL (8.0-11.0); Monocytes % 6.8 %; Neutrophils % 76.6 %; Platelet Count 199 10^3/uL (130-400); RBC 2.17 10^6/uL (4.36-5.78); RDW 14.8 % (11.8-14.1); RDW-SD 54.9 fL; WBC 5.55 10^3/uL (4.4-10.8)
[2024-01-13 08:52] LABS: Diff Comment Diff Reviewed
[2024-01-13 08:53] LABS: Hypochromasia 3+; Polychromasia Present
[2024-01-13 08:56] LABS: HGB 6.9 g/dL (13.5-17.5)
== END 2024-01-22 23:59 | disposition home or self-care (01) ==
LOC: INF 07:33
PROVIDERS: PCP Family Medicine; Visit Provider Internal Medicine Hematology & Oncology
DX: N18.4 Chronic kidney disease, stage 4 (severe) (principal); D63.1 Anemia in chronic kidney disease; N18.5 Chronic kidney disease, stage 5
CPT/HCPCS: 36415; 36430; 86850; 86900; 86901; 86920; 86945; 85025; 86644; P9016

== ENCOUNTER 2024-01-25 02:38 | Outpatient (CLI) | payer MEDICARE, OTHER, SELFPAY ==
[2024-01-25 12:19] LABS: Abs Immature Grans 0.02 10^3/uL (0.0-0.06); Absolute Basophil Count 0.05 10^3/uL (0.0-0.2); Absolute Eosinophil Count 0.24 10^3/uL (0.0-0.7); Absolute Lymphocyte Count 1.33 10^3/uL (1.2-3.4); Absolute Monocyte Count 0.52 10^3/uL (0.1-0.8); Absolute Neutrophil Count 2.59 10^3/uL (1.2-6.7); Basophils % 1.1 %; Eosinophils % 5.1 %; HCT 25.8 % (40.0-50.0); HGB 8.2 g/dL (13.5-17.5); Immature Grans % 0.4 %; MCH 31.2 pg (27.0-33.0); MCHC 31.8 % (32.0-36.0); MCV 98 fL (80-95); MPV 8.7 fL (8.0-11.0); Monocytes % 10.9 %; Neutrophils % 54.5 %; Platelet Count 112 10^3/uL (130-400); RBC 2.63 10^6/uL (4.36-5.78); RDW 15.9 % (11.8-14.1); RDW-SD 56.8 fL; WBC 4.75 10^3/uL (4.4-10.8)
[2024-01-25 12:30] LABS: Anion Gap 7.3 mmol/L (3-11); BUN 56 mg/dL (7-18); CO2 28.7 mmol/L (21.0-32.0); Calcium 9.6 mg/dL (8.5-10.1); Chloride 105 mmol/L (98-107); Estimated GFR 9.43 (mL/min/1.73m2); Glucose 153 mg/dL (74-106); Potassium 4.5 mmol/L (3.5-5.1); Sodium 141 mmol/L (136-145)
[2024-01-25 12:40] LABS: Diff Comment Diff Reviewed; Hypochromasia 2+
== END 2024-01-25 02:39 | disposition home or self-care (01) ==
PROVIDERS: Internal Medicine Nephrology; PCP Family Medicine; Visit Provider Nurse Practitioner Adult Health
DX: N18.4 Chronic kidney disease, stage 4 (severe) (principal); D63.1 Anemia in chronic kidney disease; Z94.0 Kidney transplant status
CPT/HCPCS: 36415; 80048; 86850; 86900; 86901; 85025

== ENCOUNTER 2024-02-08 03:28 | Outpatient (CLI) | payer MEDICARE, OTHER, SELFPAY ==
[2024-02-08 13:20] LABS: Albumin 2.7 g/dL (3.4-5.0); Anion Gap 9.5 mmol/L (3-11); BUN 66 mg/dL (7-18); CO2 26.5 mmol/L (21.0-32.0); Calcium 9.4 mg/dL (8.5-10.1); Chloride 105 mmol/L (98-107); Estimated GFR 9.24 (mL/min/1.73m2); Glucose 182 mg/dL (74-106); Potassium 4.1 mmol/L (3.5-5.1); Sodium 141 mmol/L (136-145)
[2024-02-08 13:30] LABS: CREATININE 6.1 mg/dL (0.70-1.30)
[2024-02-09 11:45] LABS: Tacrolimus 2.4 ng/mL (See Note)
== END 2024-02-08 03:29 | disposition home or self-care (01) ==
LOC: LBO 03:28
PROVIDERS: Internal Medicine Nephrology; PCP Family Medicine; Visit Provider Internal Medicine Hematology & Oncology
DX: N18.4 Chronic kidney disease, stage 4 (severe) (principal); D63.1 Anemia in chronic kidney disease; Z94.0 Kidney transplant status; E21.3 Hyperparathyroidism, unspecified
CPT/HCPCS: 36415; 36430; 80048; 86850; 86900; 86901; 80197; 82040; 85025

== ENCOUNTER 2024-02-09 09:36 | Outpatient (RCR) | payer MEDICARE, OTHER, SELFPAY ==
[2024-01-23 00:30] VITALS: BP 158/75; PULSE 55; RESP 17; TEMP 36.7
[2024-02-08 12:52] LABS: Abs Immature Grans 0.02 10^3/uL (0.0-0.06); Absolute Basophil Count 0.04 10^3/uL (0.0-0.2); Absolute Eosinophil Count 0.13 10^3/uL (0.0-0.7); Absolute Lymphocyte Count 1.46 10^3/uL (1.2-3.4); Absolute Monocyte Count 0.65 10^3/uL (0.1-0.8); Absolute Neutrophil Count 2.34 10^3/uL (1.2-6.7); Basophils % 0.9 %; Eosinophils % 2.8 %; HCT 23.9 % (40.0-50.0); HGB 7.6 g/dL (13.5-17.5); Immature Grans % 0.4 %; Lymphocytes % 31.5 %; MCH 31.1 pg (27.0-33.0); MCHC 31.8 % (32.0-36.0); MCV 98 fL (80-95); MPV 8.3 fL (8.0-11.0); Neutrophils % 50.4 %; Platelet Count 131 10^3/uL (130-400); RBC 2.44 10^6/uL (4.36-5.78); RDW 15.9 % (11.8-14.1); RDW-SD 57.1 fL; WBC 4.64 10^3/uL (4.4-10.8)
[2024-02-08 13:01] LABS: Diff Comment RBC Morph Reviewed; Hypochromasia 1+
[2024-02-09] MEDS: Normal Saline Flush 10 ML SYR IVP (11:10)
[2024-02-09 12:27] VITALS: BP 119/57; PULSE 69; RESP 18; TEMP 36.7; O2SAT 97
[2024-02-09 12:45] VITALS: BP 122/64; PULSE 68; RESP 17; TEMP 36.6; O2SAT 97
[2024-02-09 13:00] VITALS: BP 118/63; PULSE 72; RESP 17; TEMP 36.5; O2SAT 97
[2024-02-09 13:30] VITALS: BP 119/64; PULSE 70; RESP 17; TEMP 36.6; O2SAT 97
[2024-02-09 14:30] VITALS: BP 138/63; PULSE 67; RESP 17; TEMP 36.7; O2SAT 99
== END 2024-02-22 23:59 | disposition home or self-care (01) ==
LOC: INF 09:36
PROVIDERS: PCP Family Medicine; Visit Provider Internal Medicine Hematology & Oncology
DX: N18.4 Chronic kidney disease, stage 4 (severe); D63.1 Anemia in chronic kidney disease; Z79.899 Other long term (current) drug therapy
CPT/HCPCS: 36415; 36430; 86850; 86900; 86901; 86920; 86945; 85025; 86644; P9016

== ENCOUNTER 2024-02-22 15:38 | Outpatient (CLI) | payer MEDICARE, OTHER, SELFPAY ==
[2024-02-22 10:59] LABS: Abs Immature Grans 0.01 10^3/uL (0.0-0.06); Absolute Basophil Count 0.04 10^3/uL (0.0-0.2); Absolute Eosinophil Count 0.22 10^3/uL (0.0-0.7); Absolute Lymphocyte Count 1.26 10^3/uL (1.2-3.4); Absolute Monocyte Count 0.43 10^3/uL (0.1-0.8); Absolute Neutrophil Count 2.02 10^3/uL (1.2-6.7); Eosinophils % 5.5 %; HCT 26.5 % (40.0-50.0); HGB 8.1 g/dL (13.5-17.5); Immature Grans % 0.3 %; Lymphocytes % 31.7 %; MCH 30.5 pg (27.0-33.0); MCHC 30.6 % (32.0-36.0); MCV 100 fL (80-95); MPV 8.4 fL (8.0-11.0); Monocytes % 10.8 %; Neutrophils % 50.7 %; Platelet Count 115 10^3/uL (130-400); RBC 2.66 10^6/uL (4.36-5.78); RDW 15.9 % (11.8-14.1); RDW-SD 58.4 fL; WBC 3.98 10^3/uL (4.4-10.8)
== END 2024-02-22 15:39 | disposition home or self-care (01) ==
LOC: LBO 15:38
PROVIDERS: PCP Family Medicine; Visit Provider Internal Medicine Hematology & Oncology
DX: D63.1 Anemia in chronic kidney disease (principal); N18.4 Chronic kidney disease, stage 4 (severe)
CPT/HCPCS: 36415; 86850; 86900; 86901; 85025

== ENCOUNTER 2024-03-07 03:08 | Outpatient (CLI) | payer MEDICARE, OTHER, SELFPAY ==
[2024-03-07 10:19] LABS: Abs Immature Grans 0.01 10^3/uL (0.0-0.06); Absolute Basophil Count 0.03 10^3/uL (0.0-0.2); Absolute Eosinophil Count 0.11 10^3/uL (0.0-0.7); Absolute Lymphocyte Count 1.14 10^3/uL (1.2-3.4); Absolute Monocyte Count 0.51 10^3/uL (0.1-0.8); Absolute Neutrophil Count 3.61 10^3/uL (1.2-6.7); Basophils % 0.6 %; HCT 25.5 % (40.0-50.0); HGB 7.9 g/dL (13.5-17.5); Immature Grans % 0.2 %; Lymphocytes % 21.1 %; MCV 100 fL (80-95); MPV 8.4 fL (8.0-11.0); Monocytes % 9.4 %; Neutrophils % 66.7 %; Platelet Count 113 10^3/uL (130-400); RBC 2.55 10^6/uL (4.36-5.78); RDW 16.2 % (11.8-14.1); RDW-SD 59.1 fL; WBC 5.41 10^3/uL (4.4-10.8)
[2024-03-07 10:48] LABS: Albumin 2.7 g/dL (3.4-5.0); BUN 52 mg/dL (7-18); Calcium 9.6 mg/dL (8.5-10.1); Chloride 104 mmol/L (98-107); Estimated GFR 8.89 (mL/min/1.73m2); Glucose 247 mg/dL (74-106); Potassium 4.5 mmol/L (3.5-5.1); Sodium 140 mmol/L (136-145)
[2024-03-07 10:57] LABS: CREATININE 6.3 mg/dL (0.70-1.30)
[2024-03-08 13:13] LABS: Tacrolimus 2.7 ng/mL (See Note)
== END 2024-03-07 03:09 | disposition home or self-care (01) ==
LOC: LBO 03:08
PROVIDERS: Internal Medicine Nephrology; Nurse Practitioner Adult Health; PCP Family Medicine; Visit Provider Internal Medicine Hematology & Oncology
DX: N18.4 Chronic kidney disease, stage 4 (severe) (principal)
CPT/HCPCS: 36415; 80048; 86850; 86900; 86901; 86920; 80197; 82040; 85025

== ENCOUNTER 2024-03-08 04:02 | Outpatient (RCR) | payer MEDICARE, OTHER, SELFPAY ==
[2024-02-23 00:33] VITALS: BP 158/75; PULSE 55; RESP 17; TEMP 36.7
[2024-03-08 07:49] VITALS: BP 138/66; PULSE 68; RESP 20; TEMP 37; O2SAT 96
[2024-03-08 08:05] VITALS: BP 123/56; PULSE 68; RESP 17; TEMP 36.8; O2SAT 96
[2024-03-08 08:20] VITALS: BP 122/57; PULSE 67; RESP 20; TEMP 36.7; O2SAT 97
[2024-03-08 08:51] VITALS: BP 125/63; PULSE 61; RESP 19; TEMP 36.9; O2SAT 97
[2024-03-08 09:40] VITALS: BP 124/58; PULSE 62; RESP 18; TEMP 37.3; O2SAT 98
[2024-03-08] MEDS: Normal Saline Flush 10 ML SYR IVP (09:49)
== END 2024-03-24 23:59 | disposition home or self-care (01) ==
LOC: INF 04:02
PROVIDERS: PCP Family Medicine; Visit Provider Internal Medicine Hematology & Oncology
DX: N18.4 Chronic kidney disease, stage 4 (severe); D63.1 Anemia in chronic kidney disease
CPT/HCPCS: 36430; 86850; 86900; 86901; 86920; 86945; 86644; P9016

== ENCOUNTER 2024-03-21 03:21 | Outpatient (CLI) | payer MEDICARE, OTHER, SELFPAY ==
[2024-03-21 12:32] LABS: Abs Immature Grans 0.02 10^3/uL (0.0-0.06); Absolute Basophil Count 0.04 10^3/uL (0.0-0.2); Absolute Eosinophil Count 0.19 10^3/uL (0.0-0.7); Absolute Lymphocyte Count 1.52 10^3/uL (1.2-3.4); Absolute Monocyte Count 0.56 10^3/uL (0.1-0.8); Absolute Neutrophil Count 2.27 10^3/uL (1.2-6.7); Basophils % 0.9 %; Eosinophils % 4.1 %; HGB 8.9 g/dL (13.5-17.5); Immature Grans % 0.4 %; MCHC 31.8 % (32.0-36.0); MCV 98 fL (80-95); MPV 8.4 fL (8.0-11.0); Monocytes % 12.2 %; Neutrophils % 49.4 %; Platelet Count 120 10^3/uL (130-400); RBC 2.87 10^6/uL (4.36-5.78); RDW 15.4 % (11.8-14.1); RDW-SD 55.2 fL
== END 2024-03-21 03:22 | disposition home or self-care (01) ==
PROVIDERS: PCP Family Medicine; Visit Provider Nurse Practitioner Adult Health
DX: N18.4 Chronic kidney disease, stage 4 (severe) (principal); D63.1 Anemia in chronic kidney disease
CPT/HCPCS: 36415; 86850; 86900; 86901; 85025

== ENCOUNTER 2024-04-04 03:42 | Outpatient (CLI) | payer MEDICARE, OTHER, SELFPAY ==
[2024-04-04 13:24] LABS: Abs Immature Grans 0.01 10^3/uL (0.0-0.06); Absolute Basophil Count 0.03 10^3/uL (0.0-0.2); Absolute Eosinophil Count 0.19 10^3/uL (0.0-0.7); Absolute Lymphocyte Count 1.57 10^3/uL (1.2-3.4); Absolute Monocyte Count 0.51 10^3/uL (0.1-0.8); Absolute Neutrophil Count 2.42 10^3/uL (1.2-6.7); Basophils % 0.6 %; HCT 26.5 % (40.0-50.0); HGB 8.1 g/dL (13.5-17.5); Immature Grans % 0.2 %; Lymphocytes % 33.2 %; MCH 30.9 pg (27.0-33.0); MCHC 30.6 % (32.0-36.0); MCV 101 fL (80-95); MPV 8.4 fL (8.0-11.0); Monocytes % 10.8 %; Neutrophils % 51.2 %; Platelet Count 148 10^3/uL (130-400); RBC 2.62 10^6/uL (4.36-5.78); RDW 15.7 % (11.8-14.1); RDW-SD 57.2 fL; WBC 4.73 10^3/uL (4.4-10.8)
[2024-04-04 13:52] LABS: COMMENT (LAB VIEW ONLY) 56.73 mg/dL; PROTEIN 172.3 mg/dL; Prot/Crea Ur Ratio 3.03
[2024-04-04 14:03] LABS: Albumin 2.9 g/dL (3.4-5.0); Anion Gap 8.9 mmol/L (3-11); BUN 53 mg/dL (7-18); CO2 27.1 mmol/L (21.0-32.0); Calcium 9.5 mg/dL (8.5-10.1); Chloride 105 mmol/L (98-107); Estimated GFR 9.62 (mL/min/1.73m2); Glucose 136 mg/dL (74-106); Magnesium 1.9 mg/dL (1.8-2.4); Potassium 4.6 mmol/L (3.5-5.1); Sodium 141 mmol/L (136-145)
[2024-04-04 14:23] LABS: CREATININE 5.9 mg/dL (0.70-1.30)
[2024-04-04 14:38] LABS: PHOSPHORUS 4.5 mg/dL (2.6-4.7); Uric Acid 8.7 mg/dL (3.5-7.2)
[2024-04-04 22:37] LABS: Parathyroid Hormone,Intact 64 pg/mL (19-88)
[2024-04-05 13:26] LABS: Tacrolimus 2.8 ng/mL (See Note)
== END 2024-04-04 03:43 | disposition home or self-care (01) ==
LOC: LBO 03:42
PROVIDERS: PCP Family Medicine; Visit Provider Internal Medicine Hematology & Oncology
DX: N18.4 Chronic kidney disease, stage 4 (severe) (principal); D63.1 Anemia in chronic kidney disease; E83.42 Hypomagnesemia
CPT/HCPCS: 36415; 80048; 86850; 86900; 86901; 80197; 82040; 82565; 83735; 83970; 84100; 84156; 84550; 85025

== ENCOUNTER 2024-04-18 11:16 | Outpatient (CLI) | payer MEDICARE, OTHER, SELFPAY ==
[2024-04-18 11:18] LABS: Absolute Basophil Count 0.04 10^3/uL (0.0-0.2); Absolute Eosinophil Count 0.22 10^3/uL (0.0-0.7); Absolute Lymphocyte Count 1.34 10^3/uL (1.2-3.4); Absolute Monocyte Count 0.44 10^3/uL (0.1-0.8); Eosinophils % 5.4 %; HCT 26.4 % (40.0-50.0); HGB 8.3 g/dL (13.5-17.5); Lymphocytes % 33.2 %; MCH 31.2 pg (27.0-33.0); MCHC 31.4 % (32.0-36.0); MCV 99 fL (80-95); MPV 8.3 fL (8.0-11.0); Monocytes % 10.9 %; Neutrophils % 49.5 %; Platelet Count 128 10^3/uL (130-400); RBC 2.66 10^6/uL (4.36-5.78); RDW 15.6 % (11.8-14.1); RDW-SD 55.6 fL; WBC 4.04 10^3/uL (4.4-10.8)
== END 2024-04-18 11:17 | disposition home or self-care (01) ==
LOC: LBO 11:17
PROVIDERS: Internal Medicine Hematology & Oncology; PCP Family Medicine; Visit Provider Internal Medicine Nephrology
DX: N18.4 Chronic kidney disease, stage 4 (severe) (principal)
CPT/HCPCS: 36415; 86850; 86900; 86901; 85025

== ENCOUNTER 2024-05-02 04:59 | Outpatient (CLI) | payer MEDICARE, OTHER, SELFPAY ==
[2024-05-02 12:30] LABS: Abs Immature Grans 0.01 10^3/uL (0.0-0.06); Absolute Basophil Count 0.05 10^3/uL (0.0-0.2); Absolute Eosinophil Count 0.24 10^3/uL (0.0-0.7); Absolute Lymphocyte Count 2.18 10^3/uL (1.2-3.4); Absolute Monocyte Count 0.66 10^3/uL (0.1-0.8); Absolute Neutrophil Count 2.28 10^3/uL (1.2-6.7); Basophils % 0.9 %; Eosinophils % 4.4 %; HCT 26.7 % (40.0-50.0); HGB 8.3 g/dL (13.5-17.5); Immature Grans % 0.2 %; Lymphocytes % 40.2 %; MCH 31.6 pg (27.0-33.0); MCHC 31.1 % (32.0-36.0); MCV 102 fL (80-95); MPV 8.2 fL (8.0-11.0); Monocytes % 12.2 %; Neutrophils % 42.1 %; Platelet Count 124 10^3/uL (130-400); RBC 2.63 10^6/uL (4.36-5.78); RDW-SD 55.4 fL; WBC 5.42 10^3/uL (4.4-10.8)
[2024-05-02 14:01] LABS: Anion Gap 11.5 mmol/L (3-11); BUN 61 mg/dL (7-18); CO2 26.5 mmol/L (21.0-32.0); Calcium 9.8 mg/dL (8.5-10.1); Chloride 108 mmol/L (98-107); Estimated GFR 9.24 (mL/min/1.73m2); Glucose 75 mg/dL (74-106); Potassium 4.5 mmol/L (3.5-5.1); Sodium 146 mmol/L (136-145)
[2024-05-02 14:26] LABS: CREATININE 6.1 mg/dL (0.70-1.30)
== END 2024-05-02 05:00 | disposition home or self-care (01) ==
PROVIDERS: Internal Medicine Nephrology; PCP Family Medicine; Visit Provider Nurse Practitioner Adult Health
DX: D63.1 Anemia in chronic kidney disease; E21.3 Hyperparathyroidism, unspecified; N18.5 Chronic kidney disease, stage 5
CPT/HCPCS: 36415; 80048; 86850; 86900; 86901; 85025

== ENCOUNTER 2024-05-17 02:19 | Outpatient (RCR) | payer MEDICARE, OTHER, SELFPAY ==
[2024-05-16 09:46] LABS: Abs Immature Grans 0.01 10^3/uL (0.0-0.06); Absolute Basophil Count 0.02 10^3/uL (0.0-0.2); Absolute Eosinophil Count 0.17 10^3/uL (0.0-0.7); Absolute Lymphocyte Count 1.06 10^3/uL (1.2-3.4); Absolute Monocyte Count 0.45 10^3/uL (0.1-0.8); Absolute Neutrophil Count 2.15 10^3/uL (1.2-6.7); Basophils % 0.5 %; Eosinophils % 4.4 %; HCT 24.6 % (40.0-50.0); HGB 7.4 g/dL (13.5-17.5); Immature Grans % 0.3 %; Lymphocytes % 27.5 %; MCH 31.2 pg (27.0-33.0); MCHC 30.1 % (32.0-36.0); MCV 104 fL (80-95); MPV 8.1 fL (8.0-11.0); Monocytes % 11.7 %; Neutrophils % 55.6 %; Platelet Count 109 10^3/uL (130-400); RBC 2.37 10^6/uL (4.36-5.78); RDW 14.6 % (11.8-14.1); RDW-SD 54.4 fL; WBC 3.86 10^3/uL (4.4-10.8)
[2024-05-17 09:11] VITALS: BP 137/61; PULSE 70; RESP 17; TEMP 36.8; O2SAT 99
[2024-05-17 09:25] VITALS: BP 158/67; PULSE 69; RESP 17; TEMP 36.3; O2SAT 99
[2024-05-17 09:42] VITALS: BP 147/63; PULSE 63; RESP 17; TEMP 36.2; O2SAT 98
[2024-05-17 10:10] VITALS: BP 128/63; PULSE 65; RESP 17; TEMP 36.3; O2SAT 97
[2024-05-17 11:10] VITALS: BP 154/66; PULSE 57; RESP 17; TEMP 36.3; O2SAT 98
[2024-05-17 11:30] VITALS: BP 154/70; PULSE 67; RESP 17; TEMP 36.7; O2SAT 99
== END 2024-05-24 23:59 | disposition home or self-care (01) ==
LOC: INF 02:19
PROVIDERS: Nurse Practitioner Adult Health; PCP Family Medicine; Visit Provider Internal Medicine Hematology & Oncology
DX: N18.4 Chronic kidney disease, stage 4 (severe); D63.1 Anemia in chronic kidney disease
CPT/HCPCS: 36415; 36430; 86850; 86900; 86901; 86920; 86945; 85025; 86644; P9016

== ENCOUNTER 2024-05-30 03:26 | Outpatient (CLI) | payer MEDICARE, OTHER, SELFPAY ==
[2024-05-30 11:48] LABS: Abs Immature Grans 0.01 10^3/uL (0.0-0.06); Absolute Basophil Count 0.04 10^3/uL (0.0-0.2); Absolute Eosinophil Count 0.16 10^3/uL (0.0-0.7); Absolute Lymphocyte Count 1.32 10^3/uL (1.2-3.4); Absolute Monocyte Count 0.37 10^3/uL (0.1-0.8); Absolute Neutrophil Count 1.93 10^3/uL (1.2-6.7); Eosinophils % 4.2 %; HCT 25.9 % (40.0-50.0); HGB 8.2 g/dL (13.5-17.5); Immature Grans % 0.3 %; Lymphocytes % 34.5 %; MCH 31.5 pg (27.0-33.0); MCHC 31.7 % (32.0-36.0); MCV 100 fL (80-95); Monocytes % 9.7 %; Neutrophils % 50.3 %; Platelet Count 106 10^3/uL (130-400); RDW 14.4 % (11.8-14.1); RDW-SD 51.7 fL; WBC 3.83 10^3/uL (4.4-10.8)
== END 2024-05-30 03:27 | disposition home or self-care (01) ==
LOC: LBO 03:27
PROVIDERS: PCP Family Medicine; Visit Provider Nurse Practitioner Adult Health
DX: N18.4 Chronic kidney disease, stage 4 (severe) (principal)
CPT/HCPCS: 36415; 86850; 86900; 86901; 85025

== ENCOUNTER 2024-06-13 02:18 | Outpatient (CLI) | payer MEDICARE, OTHER, SELFPAY ==
[2024-06-13 12:37] LABS: Abs Immature Grans 0.01 10^3/uL (0.0-0.06); Absolute Basophil Count 0.04 10^3/uL (0.0-0.2); Absolute Eosinophil Count 0.21 10^3/uL (0.0-0.7); Absolute Lymphocyte Count 1.25 10^3/uL (1.2-3.4); Absolute Monocyte Count 0.43 10^3/uL (0.1-0.8); Absolute Neutrophil Count 1.72 10^3/uL (1.2-6.7); Basophils % 1.1 %; Eosinophils % 5.7 %; HCT 26.8 % (40.0-50.0); HGB 8.4 g/dL (13.5-17.5); Immature Grans % 0.3 %; Lymphocytes % 34.2 %; MCH 32.1 pg (27.0-33.0); MCHC 31.3 % (32.0-36.0); MCV 102 fL (80-95); MPV 8.4 fL (8.0-11.0); Monocytes % 11.7 %; Platelet Count 105 10^3/uL (130-400); RBC 2.62 10^6/uL (4.36-5.78); RDW 14.2 % (11.8-14.1); RDW-SD 53.1 fL; WBC 3.66 10^3/uL (4.4-10.8)
== END 2024-06-13 02:19 | disposition home or self-care (01) ==
PROVIDERS: PCP Family Medicine; Visit Provider Internal Medicine Hematology & Oncology
DX: N18.4 Chronic kidney disease, stage 4 (severe) (principal)
CPT/HCPCS: 36415; 86850; 86900; 86901; 85025

== ENCOUNTER 2024-06-27 02:24 | Outpatient (CLI) | payer MEDICARE, OTHER, SELFPAY ==
[2024-06-28 13:05] LABS: Tacrolimus <2.0 ng/mL (See Note)
== END 2024-06-27 02:25 | disposition home or self-care (01) ==
LOC: LBO 02:24
PROVIDERS: Internal Medicine Nephrology; PCP Family Medicine; Visit Provider Internal Medicine Hematology & Oncology
DX: E11.21 Type 2 diabetes mellitus with diabetic nephropathy; Z79.4 Long term (current) use of insulin; N18.5 Chronic kidney disease, stage 5; E21.3 Hyperparathyroidism, unspecified; Z94.0 Kidney transplant status
CPT/HCPCS: 36415; 80053; 86850; 86900; 86901; 86920; 80197; 85025

== ENCOUNTER 2024-07-11 13:56 | Outpatient (CLI) | payer MEDICARE, OTHER, SELFPAY | END 2024-07-11 13:57 | disposition home or self-care (01) | LOC: LBO 13:59 | PROVIDERS: PCP Family Medicine; Visit Provider Internal Medicine Hematology & Oncology | DX: D63.1 Anemia in chronic kidney disease (principal) | CPT/HCPCS: 36415; 80053; 86850; 86900; 86901; 86920; 85025 ==

== ENCOUNTER 2024-07-12 02:07 | Outpatient (RCR) | payer MEDICARE, OTHER, SELFPAY ==
[2024-06-27 11:49] LABS: Abs Immature Grans 0.01 10^3/uL (0.0-0.06); Absolute Basophil Count 0.02 10^3/uL (0.0-0.2); Absolute Eosinophil Count 0.17 10^3/uL (0.0-0.7); Absolute Lymphocyte Count 1.22 10^3/uL (1.2-3.4); Absolute Monocyte Count 0.35 10^3/uL (0.1-0.8); Absolute Neutrophil Count 1.94 10^3/uL (1.2-6.7); Basophils % 0.5 %; Eosinophils % 4.6 %; HCT 24.6 % (40.0-50.0); HGB 7.8 g/dL (13.5-17.5); Immature Grans % 0.3 %; Lymphocytes % 32.9 %; MCH 31.6 pg (27.0-33.0); MCHC 31.7 % (32.0-36.0); MCV 100 fL (80-95); MPV 8.4 fL (8.0-11.0); Monocytes % 9.4 %; Neutrophils % 52.3 %; Platelet Count 104 10^3/uL (130-400); RBC 2.47 10^6/uL (4.36-5.78); RDW-SD 50.3 fL; WBC 3.71 10^3/uL (4.4-10.8)
[2024-06-27 12:09] LABS: ALT 16 U/L (16-63); AST 14 U/L (15-37); Alkaline Phosphatase 145 U/L (46-116); Anion Gap 10.7 mmol/L (3-11); BUN 66 mg/dL (7-18); Bilirubin, Total 0.32 mg/dL (0.2-1.0); CO2 26.3 mmol/L (21.0-32.0); Calcium 9.8 mg/dL (8.5-10.1); Chloride 105 mmol/L (98-107); Estimated GFR 7.92 (mL/min/1.73m2); Glucose 183 mg/dL (74-106); Potassium 4.3 mmol/L (3.5-5.1); Sodium 142 mmol/L (136-145); Total Protein 7.8 g/dL (6.4-8.2)
[2024-06-27 12:13] LABS: CREATININE 6.9 mg/dL (0.70-1.30)
[2024-06-29 10:14] VITALS: BP 153/74; PULSE 70; RESP 18; TEMP 36.3; O2SAT 100
[2024-06-29 10:29] VITALS: BP 137/64; PULSE 69; RESP 18; TEMP 36.3; O2SAT 100
[2024-06-29 10:50] VITALS: BP 145/66; PULSE 63; RESP 18; TEMP 36.2; O2SAT 99
[2024-06-29 10:59] VITALS: BP 138/69; PULSE 60; RESP 18; TEMP 35.7; O2SAT 98
[2024-06-29 11:55] VITALS: BP 157/77; PULSE 66; RESP 18; TEMP 36.4; O2SAT 99
[2024-06-29] MEDS: Normal Saline Flush 10 ML SYR IVP (12:23)
[2024-07-11 12:20] LABS: Abs Immature Grans 0.01 10^3/uL (0.0-0.06); Absolute Basophil Count 0.01 10^3/uL (0.0-0.2); Absolute Eosinophil Count 0.12 10^3/uL (0.0-0.7); Absolute Lymphocyte Count 0.91 10^3/uL (1.2-3.4); Absolute Monocyte Count 0.28 10^3/uL (0.1-0.8); Absolute Neutrophil Count 1.42 10^3/uL (1.2-6.7); Basophils % 0.4 %; Eosinophils % 4.4 %; HCT 24.5 % (40.0-50.0); HGB 7.7 g/dL (13.5-17.5); Immature Grans % 0.4 %; Lymphocytes % 33.1 %; MCH 31.7 pg (27.0-33.0); MCHC 31.4 % (32.0-36.0); MCV 101 fL (80-95); MPV 8.6 fL (8.0-11.0); Monocytes % 10.2 %; Neutrophils % 51.5 %; Platelet Count 105 10^3/uL (130-400); RBC 2.43 10^6/uL (4.36-5.78); RDW 13.9 % (11.8-14.1); RDW-SD 50.4 fL; WBC 2.75 10^3/uL (4.4-10.8)
[2024-07-11 12:40] LABS: ALT 15 U/L (16-63); AST 17 U/L (15-37); Albumin 2.8 g/dL (3.4-5.0); Alkaline Phosphatase 141 U/L (46-116); Anion Gap 9.1 mmol/L (3-11); BUN 60 mg/dL (7-18); Bilirubin, Total 0.27 mg/dL (0.2-1.0); CO2 26.9 mmol/L (21.0-32.0); Calcium 9.5 mg/dL (8.5-10.1); Chloride 105 mmol/L (98-107); Estimated GFR 8.67 (mL/min/1.73m2); Glucose 247 mg/dL (74-106); Sodium 141 mmol/L (136-145); Total Protein 7.4 g/dL (6.4-8.2)
[2024-07-11 12:46] LABS: CREATININE 6.4 mg/dL (0.70-1.30)
[2024-07-12] MEDS: Normal Saline Flush 10 ML SYR IVP (09:45)
[2024-07-12 10:10] VITALS: BP 132/65; PULSE 57; RESP 18; TEMP 36.7; O2SAT 99
[2024-07-12 10:25] VITALS: BP 131/68; PULSE 60; RESP 18; TEMP 36.5; O2SAT 98
[2024-07-12 10:40] VITALS: BP 146/69; PULSE 60; RESP 18; TEMP 36.4; O2SAT 99
[2024-07-12 11:10] VITALS: BP 148/68; PULSE 56; RESP 18; TEMP 36.4; O2SAT 98
[2024-07-12 12:00] VITALS: BP 137/77; PULSE 66; RESP 18; TEMP 36.5; O2SAT 100
== END 2024-07-24 23:59 | disposition home or self-care (01) ==
LOC: INF 02:07
PROVIDERS: PCP Family Medicine; Visit Provider Internal Medicine Hematology & Oncology
DX: N18.4 Chronic kidney disease, stage 4 (severe) (principal); D63.1 Anemia in chronic kidney disease
CPT/HCPCS: 36415; 36430; 80053; 86850; 86900; 86901; 86920; 86945; 85025; 86644; P9016

== ENCOUNTER 2024-07-27 01:21 | Outpatient (CLI) | payer MEDICARE, OTHER, SELFPAY ==
[2024-07-27 11:55] LABS: Absolute Basophil Count 0.03 10^3/uL (0.0-0.2); Absolute Eosinophil Count 0.17 10^3/uL (0.0-0.7); Absolute Lymphocyte Count 0.83 10^3/uL (1.2-3.4); Absolute Neutrophil Count 1.97 10^3/uL (1.2-6.7); Basophils % 0.9 %; Eosinophils % 5.2 %; HCT 24.4 % (40.0-50.0); HGB 7.6 g/dL (13.5-17.5); Lymphocytes % 25.2 %; MCHC 31.1 % (32.0-36.0); MCV 100 fL (80-95); MPV 8.5 fL (8.0-11.0); Monocytes % 9.1 %; Neutrophils % 59.6 %; Platelet Count 108 10^3/uL (130-400); RBC 2.45 10^6/uL (4.36-5.78); RDW 14.3 % (11.8-14.1); RDW-SD 51.3 fL
[2024-07-27 12:10] LABS: ALT 12 U/L (16-63); AST 13 U/L (15-37); Albumin 2.7 g/dL (3.4-5.0); Alkaline Phosphatase 151 U/L (46-116); Anion Gap 8.6 mmol/L (3-11); BUN 58 mg/dL (7-18); Bilirubin, Total 0.32 mg/dL (0.2-1.0); CO2 26.4 mmol/L (21.0-32.0); Calcium 9.6 mg/dL (8.5-10.1); Chloride 108 mmol/L (98-107); Estimated GFR 8.21 (mL/min/1.73m2); Glucose 179 mg/dL (74-106); Potassium 5.2 mmol/L (3.5-5.1); Sodium 143 mmol/L (136-145); Total Protein 7.2 g/dL (6.4-8.2)
[2024-07-27 12:14] LABS: CREATININE 6.7 mg/dL (0.70-1.30)
== END 2024-07-27 01:22 | disposition home or self-care (01) ==
PROVIDERS: PCP Family Medicine; Visit Provider Nurse Practitioner Adult Health
DX: N18.4 Chronic kidney disease, stage 4 (severe) (principal)
CPT/HCPCS: 36415; 80053; 86850; 86900; 86901; 86920; 85025

== ENCOUNTER 2024-08-09 00:33 | Outpatient (RCR) | payer MEDICARE, OTHER, SELFPAY ==
[2024-07-25 00:15] VITALS: BP 137/77; PULSE 66; RESP 18; TEMP 36.5
[2024-07-30 09:25] VITALS: BP 147/65; PULSE 76; RESP 18; TEMP 37.1; O2SAT 100
[2024-07-30] MEDS: Normal Saline Flush 10 ML SYR IVP (09:35)
[2024-07-30 09:40] VITALS: BP 147/74; PULSE 71; RESP 18; TEMP 37.1; O2SAT 100
[2024-07-30 09:55] VITALS: BP 146/72; PULSE 71; RESP 19; TEMP 37; O2SAT 99
[2024-07-30 10:26] VITALS: BP 145/73; PULSE 65; RESP 16; TEMP 36.9; O2SAT 100
[2024-07-30 11:23] VITALS: BP 138/71; PULSE 65; RESP 16; TEMP 37; O2SAT 98
[2024-08-08 14:02] LABS: Abs Immature Grans 0.01 10^3/uL (0.0-0.06); Absolute Basophil Count 0.02 10^3/uL (0.0-0.2); Absolute Eosinophil Count 0.14 10^3/uL (0.0-0.7); Absolute Lymphocyte Count 1.05 10^3/uL (1.2-3.4); Absolute Monocyte Count 0.34 10^3/uL (0.1-0.8); Absolute Neutrophil Count 1.53 10^3/uL (1.2-6.7); Basophils % 0.6 %; Eosinophils % 4.5 %; HCT 24.7 % (40.0-50.0); HGB 7.6 g/dL (13.5-17.5); Immature Grans % 0.3 %; MCH 31.3 pg (27.0-33.0); MCHC 30.8 % (32.0-36.0); MCV 102 fL (80-95); MPV 8.6 fL (8.0-11.0); Neutrophils % 49.6 %; Platelet Count 106 10^3/uL (130-400); RBC 2.43 10^6/uL (4.36-5.78); RDW 14.6 % (11.8-14.1); RDW-SD 52.4 fL; WBC 3.09 10^3/uL (4.4-10.8)
[2024-08-08 14:22] LABS: ALT 14 U/L (16-63); AST 15 U/L (15-37); Albumin 2.6 g/dL (3.4-5.0); Alkaline Phosphatase 156 U/L (46-116); Anion Gap 5.6 mmol/L (3-11); BUN 64 mg/dL (7-18); CO2 29.4 mmol/L (21.0-32.0); Calcium 9.7 mg/dL (8.5-10.1); Chloride 108 mmol/L (98-107); Estimated GFR 8.67 (mL/min/1.73m2); Glucose 108 mg/dL (74-106); Potassium 4.9 mmol/L (3.5-5.1); Sodium 143 mmol/L (136-145); Total Protein 7.4 g/dL (6.4-8.2)
[2024-08-08 14:42] LABS: CREATININE 6.4 mg/dL (0.70-1.30)
[2024-08-09 12:04] VITALS: BP 154/69; PULSE 82; RESP 17; TEMP 36.8; O2SAT 99
[2024-08-09 12:20] VITALS: BP 173/74; PULSE 68; RESP 17; TEMP 36.8; O2SAT 99
[2024-08-09 12:35] VITALS: BP 160/72; PULSE 62; RESP 17; TEMP 36.5; O2SAT 99
[2024-08-09 12:57] VITALS: BP 159/71; PULSE 67; RESP 17; TEMP 36.7; O2SAT 98
[2024-08-09 13:05] VITALS: BP 164/77; PULSE 66; RESP 17; TEMP 36.6; O2SAT 98
== END 2024-08-24 23:59 | disposition home or self-care (01) ==
LOC: INF 00:33
PROVIDERS: PCP Family Medicine; Visit Provider Internal Medicine Hematology & Oncology
DX: N18.4 Chronic kidney disease, stage 4 (severe) (principal); D64.9 Anemia, unspecified; D63.1 Anemia in chronic kidney disease; Z79.4 Long term (current) use of insulin; E11.21 Type 2 diabetes mellitus with diabetic nephropathy
CPT/HCPCS: 36415; 36430; 80053; 86850; 86900; 86901; 86920; 86945; 85025; 86644; P9016

== ENCOUNTER 2024-08-22 04:00 | Outpatient (CLI) | payer MEDICARE, OTHER, SELFPAY ==
[2024-08-22 12:32] LABS: Abs Immature Grans 0.02 10^3/uL (0.0-0.06); Absolute Basophil Count 0.01 10^3/uL (0.0-0.2); Absolute Eosinophil Count 0.12 10^3/uL (0.0-0.7); Absolute Lymphocyte Count 0.89 10^3/uL (1.2-3.4); Absolute Monocyte Count 0.41 10^3/uL (0.1-0.8); Absolute Neutrophil Count 3.06 10^3/uL (1.2-6.7); Basophils % 0.2 %; Eosinophils % 2.7 %; HCT 24.8 % (40.0-50.0); HGB 7.5 g/dL (13.5-17.5); Immature Grans % 0.4 %; Lymphocytes % 19.7 %; MCH 31.1 pg (27.0-33.0); MCHC 30.2 % (32.0-36.0); MCV 103 fL (80-95); MPV 8.6 fL (8.0-11.0); Monocytes % 9.1 %; Neutrophils % 67.9 %; Platelet Count 102 10^3/uL (130-400); RBC 2.41 10^6/uL (4.36-5.78); RDW 15.5 % (11.8-14.1); RDW-SD 57.1 fL; WBC 4.51 10^3/uL (4.4-10.8)
[2024-08-22 12:42] LABS: Anisocytosis 1+; Diff Comment RBC Morph Reviewed; Polychromasia Present
[2024-08-22 12:43] LABS: Poikilocytes 1+
[2024-08-22 12:54] LABS: ALT 16 U/L (16-63); AST 15 U/L (15-37); Albumin 2.6 g/dL (3.4-5.0); Alkaline Phosphatase 166 U/L (46-116); Anion Gap 10.5 mmol/L (3-11); BUN 62 mg/dL (7-18); Bilirubin, Total 0.38 mg/dL (0.2-1.0); CO2 25.5 mmol/L (21.0-32.0); Calcium 9.8 mg/dL (8.5-10.1); Chloride 105 mmol/L (98-107); Estimated GFR 8.06 (mL/min/1.73m2); Glucose 221 mg/dL (74-106); Sodium 141 mmol/L (136-145); Total Protein 7.7 g/dL (6.4-8.2)
[2024-08-22 13:00] LABS: CREATININE 6.8 mg/dL (0.70-1.30)
== END 2024-08-22 04:01 | disposition home or self-care (01) ==
LOC: LBO 04:00
PROVIDERS: Nurse Practitioner Adult Health; PCP Family Medicine; Visit Provider Internal Medicine Hematology & Oncology
DX: N18.4 Chronic kidney disease, stage 4 (severe) (principal); D63.1 Anemia in chronic kidney disease; E11.21 Type 2 diabetes mellitus with diabetic nephropathy; Z79.4 Long term (current) use of insulin
CPT/HCPCS: 36415; 80053; 86850; 86900; 86901; 80197; 85025

== ENCOUNTER 2024-09-05 04:43 | Outpatient (CLI) | payer MEDICARE, OTHER, SELFPAY ==
[2024-09-05 13:44] LABS: Abs Immature Grans 0.01 10^3/uL (0.0-0.06); Absolute Basophil Count 0.04 10^3/uL (0.0-0.2); Absolute Eosinophil Count 0.21 10^3/uL (0.0-0.7); Absolute Lymphocyte Count 1.39 10^3/uL (1.2-3.4); Absolute Monocyte Count 0.51 10^3/uL (0.1-0.8); Absolute Neutrophil Count 3.13 10^3/uL (1.2-6.7); Basophils % 0.8 %; HCT 28.5 % (40.0-50.0); HGB 8.8 g/dL (13.5-17.5); Immature Grans % 0.2 %; Lymphocytes % 26.3 %; MCH 31.1 pg (27.0-33.0); MCHC 30.9 % (32.0-36.0); MCV 101 fL (80-95); MPV 8.3 fL (8.0-11.0); Monocytes % 9.6 %; Neutrophils % 59.1 %; Platelet Count 211 10^3/uL (130-400); RBC 2.83 10^6/uL (4.36-5.78); RDW 15.3 % (11.8-14.1); RDW-SD 56.1 fL; WBC 5.29 10^3/uL (4.4-10.8)
[2024-09-05 14:06] LABS: ALT 31 U/L (16-63); AST 19 U/L (15-37); Albumin 2.5 g/dL (3.4-5.0); Alkaline Phosphatase 158 U/L (46-116); Anion Gap 5.2 mmol/L (3-11); BUN 76 mg/dL (7-18); Bilirubin, Total 0.39 mg/dL (0.2-1.0); CO2 30.8 mmol/L (21.0-32.0); Calcium 10.5 mg/dL (8.5-10.1); Chloride 107 mmol/L (98-107); Estimated GFR 9.37 (mL/min/1.73m2); Glucose 71 mg/dL (74-106); Potassium 4.8 mmol/L (3.5-5.1); Sodium 143 mmol/L (136-145); Total Protein 7.8 g/dL (6.4-8.2)
== END 2024-09-05 04:44 | disposition home or self-care (01) ==
LOC: LBO 04:43
PROVIDERS: PCP Family Medicine; Visit Provider Internal Medicine Hematology & Oncology
DX: N18.4 Chronic kidney disease, stage 4 (severe) (principal)
CPT/HCPCS: 36415; 80053; 86850; 86900; 86901; 85025

== ENCOUNTER 2024-09-18 09:00 | Outpatient (RCR) | payer MEDICARE, OTHER, SELFPAY ==
[2024-08-27 11:37] VITALS: BP 166/74; PULSE 82; RESP 16; TEMP 36.8; O2SAT 98
[2024-08-27 12:03] VITALS: BP 162/66; PULSE 79; RESP 16; TEMP 36.7; O2SAT 96
[2024-08-27 12:07] VITALS: BP 147/72; PULSE 75; RESP 17; TEMP 36.8; O2SAT 96
[2024-08-27 12:18] VITALS: BP 144/64; PULSE 76; RESP 17; TEMP 36.6; O2SAT 98
[2024-08-27 14:16] VITALS: BP 142/60; PULSE 75; RESP 18; TEMP 36.6; O2SAT 97
[2024-08-27] MEDS: Normal Saline Flush 10 ML SYR IVP (14:40)
[2024-09-18 08:07] LABS: Abs Immature Grans 0.01 10^3/uL (0.0-0.06); Absolute Basophil Count 0.04 10^3/uL (0.0-0.2); Absolute Lymphocyte Count 1.19 10^3/uL (1.2-3.4); Absolute Monocyte Count 0.43 10^3/uL (0.1-0.8); Basophils % 0.8 %; Eosinophils % 6.2 %; HCT 26.5 % (40.0-50.0); Immature Grans % 0.2 %; Lymphocytes % 24.4 %; MCH 30.8 pg (27.0-33.0); MCHC 30.2 % (32.0-36.0); MCV 102 fL (80-95); MPV 8.5 fL (8.0-11.0); Monocytes % 8.8 %; Neutrophils % 59.6 %; Platelet Count 135 10^3/uL (130-400); RDW 15.9 % (11.8-14.1); RDW-SD 57.8 fL; WBC 4.87 10^3/uL (4.4-10.8)
[2024-09-18 08:21] LABS: ALT 19 U/L (16-63); AST 17 U/L (15-37); Albumin 2.7 g/dL (3.4-5.0); Alkaline Phosphatase 162 U/L (46-116); Anion Gap 8.7 mmol/L (3-11); BUN 66 mg/dL (7-18); Bilirubin, Total 0.36 mg/dL (0.2-1.0); CO2 27.3 mmol/L (21.0-32.0); Calcium 9.8 mg/dL (8.5-10.1); Chloride 104 mmol/L (98-107); Estimated GFR 8.67 (mL/min/1.73m2); Glucose 245 mg/dL (74-106); Potassium 4.6 mmol/L (3.5-5.1); Sodium 140 mmol/L (136-145); Total Protein 7.8 g/dL (6.4-8.2)
[2024-09-18 08:29] LABS: CREATININE 6.4 mg/dL (0.70-1.30)
[2024-09-18] MEDS: Normal Saline Flush 10 ML SYR IVP (08:32)
[2024-09-18 09:20] VITALS: BP 138/63; PULSE 74; RESP 17; TEMP 36.4; O2SAT 98
[2024-09-18 09:35] VITALS: BP 138/66; PULSE 73; RESP 17; TEMP 37; O2SAT 97
[2024-09-18 09:54] VITALS: BP 144/63; PULSE 70; RESP 16; TEMP 36.5; O2SAT 98
[2024-09-18 10:23] VITALS: BP 151/68; PULSE 70; RESP 16; TEMP 36.4; O2SAT 97
[2024-09-18 11:23] VITALS: BP 160/70; PULSE 70; RESP 17; TEMP 36.5; O2SAT 98
== END 2024-09-21 23:59 | disposition home or self-care (01) ==
LOC: INF 09:00
PROVIDERS: Nurse Practitioner Adult Health; PCP Family Medicine; Visit Provider Internal Medicine Hematology & Oncology
DX: D63.1 Anemia in chronic kidney disease (principal); N18.5 Chronic kidney disease, stage 5; E11.21 Type 2 diabetes mellitus with diabetic nephropathy; Z79.4 Long term (current) use of insulin
CPT/HCPCS: 36415; 36430; 80053; 86850; 86900; 86901; 86920; 86945; 85025; 86644; P9016

== ENCOUNTER 2024-10-16 08:00 | Outpatient (RCR) | payer MEDICARE, OTHER, SELFPAY ==
[2024-10-02] MEDS: Normal Saline Flush 5 ML SYR IVP (08:38)
[2024-10-02 08:46] LABS: Abs Immature Grans 0.01 10^3/uL (0.0-0.06); Absolute Basophil Count 0.02 10^3/uL (0.0-0.2); Absolute Eosinophil Count 0.21 10^3/uL (0.0-0.7); Absolute Lymphocyte Count 1.03 10^3/uL (1.2-3.4); Absolute Monocyte Count 0.41 10^3/uL (0.1-0.8); Absolute Neutrophil Count 2.28 10^3/uL (1.2-6.7); Basophils % 0.5 %; Eosinophils % 5.3 %; HCT 25.8 % (40.0-50.0); Immature Grans % 0.3 %; MCV 100 fL (80-95); MPV 8.9 fL (8.0-11.0); Monocytes % 10.4 %; Neutrophils % 57.5 %; Platelet Count 128 10^3/uL (130-400); RBC 2.58 10^6/uL (4.36-5.78); RDW 15.9 % (11.8-14.1); RDW-SD 58.2 fL; WBC 3.96 10^3/uL (4.4-10.8)
[2024-10-02] MEDS: Darbepoetin 300 MCG SYR SC (09:10)
[2024-10-02 09:15] LABS: ALT 19 U/L (16-63); AST 16 U/L (15-37); Albumin 2.7 g/dL (3.4-5.0); Alkaline Phosphatase 157 U/L (46-116); Anion Gap 9.6 mmol/L (3-11); BUN 66 mg/dL (7-18); Bilirubin, Total 0.4 mg/dL (0.2-1.0); CO2 28.4 mmol/L (21.0-32.0); Calcium 9.7 mg/dL (8.5-10.1); Chloride 104 mmol/L (98-107); Estimated GFR 8.67 (mL/min/1.73m2); Glucose 186 mg/dL (74-106); Potassium 4.1 mmol/L (3.5-5.1); Sodium 142 mmol/L (136-145); Total Protein 7.7 g/dL (6.4-8.2)
[2024-10-02 09:20] LABS: CREATININE 6.4 mg/dL (0.70-1.30)
[2024-10-03 08:09] VITALS: BP 155/68; PULSE 79; RESP 19; TEMP 36.6; O2SAT 99
[2024-10-03 08:24] VITALS: BP 126/64; PULSE 80; RESP 18; TEMP 37.1; O2SAT 97
[2024-10-03 08:43] VITALS: BP 125/60; PULSE 74; RESP 18; TEMP 37; O2SAT 97
[2024-10-03 09:14] VITALS: BP 130/57; PULSE 73; RESP 16; TEMP 36.6; O2SAT 93
[2024-10-03 10:08] VITALS: BP 132/64; PULSE 70; RESP 18; TEMP 37.3; O2SAT 97
[2024-10-16 08:01] LABS: Abs Immature Grans 0.01 10^3/uL (0.0-0.06); Absolute Basophil Count 0.02 10^3/uL (0.0-0.2); Absolute Eosinophil Count 0.23 10^3/uL (0.0-0.7); Absolute Lymphocyte Count 0.94 10^3/uL (1.2-3.4); Absolute Monocyte Count 0.33 10^3/uL (0.1-0.8); Absolute Neutrophil Count 2.37 10^3/uL (1.2-6.7); Basophils % 0.5 %; Eosinophils % 5.9 %; HCT 24.6 % (40.0-50.0); HGB 7.6 g/dL (13.5-17.5); Immature Grans % 0.3 %; Lymphocytes % 24.1 %; MCH 31.3 pg (27.0-33.0); MCHC 30.9 % (32.0-36.0); MCV 101 fL (80-95); MPV 8.6 fL (8.0-11.0); Monocytes % 8.5 %; Neutrophils % 60.7 %; Platelet Count 124 10^3/uL (130-400); RBC 2.43 10^6/uL (4.36-5.78); RDW 16.3 % (11.8-14.1); RDW-SD 59.5 fL
[2024-10-16 08:22] LABS: Diff Comment RBC Morph Reviewed; RBC Morphology Normal
[2024-10-16 09:36] VITALS: BP 129/63; PULSE 78; RESP 16; TEMP 37.2; O2SAT 96
[2024-10-16 09:49] VITALS: BP 134/68; PULSE 78; RESP 16; TEMP 37.2; O2SAT 98
[2024-10-16 09:51] VITALS: BP 135/66; PULSE 80; RESP 18; TEMP 37.4; O2SAT 98
[2024-10-16] MEDS: Normal Saline Flush 5 ML SYR IVP (10:01)
[2024-10-16] MEDS: Darbepoetin 300 MCG SYR SC (10:24)
[2024-10-16 10:35] VITALS: BP 125/65; PULSE 66; RESP 18; TEMP 37; O2SAT 97
[2024-10-16 11:04] VITALS: BP 126/67; PULSE 73; RESP 16; TEMP 37.1; O2SAT 97
== END 2024-10-22 23:59 | disposition home or self-care (01) ==
LOC: INF 08:00
PROVIDERS: Nurse Practitioner Adult Health; PCP Family Medicine; Visit Provider Internal Medicine Hematology & Oncology
DX: N18.4 Chronic kidney disease, stage 4 (severe) (principal); D63.1 Anemia in chronic kidney disease
CPT/HCPCS: 36415; 36430; 80053; 86850; 86900; 86901; 86920; 86945; 96372; 85025; 86644; J0881; P9016

== ENCOUNTER 2024-11-13 03:12 | Outpatient (RCR) | payer MEDICARE, OTHER, SELFPAY ==
[2024-10-30] MEDS: Normal Saline Flush 10 ML SYR IVP (08:27)
[2024-10-30 08:30] LABS: Abs Immature Grans 0.01 10^3/uL (0.0-0.06); Absolute Basophil Count 0.03 10^3/uL (0.0-0.2); Absolute Eosinophil Count 0.27 10^3/uL (0.0-0.7); Absolute Monocyte Count 0.51 10^3/uL (0.1-0.8); Absolute Neutrophil Count 2.56 10^3/uL (1.2-6.7); Basophils % 0.7 %; Eosinophils % 5.9 %; HCT 26.4 % (40.0-50.0); HGB 8.2 g/dL (13.5-17.5); Immature Grans % 0.2 %; Lymphocytes % 26.2 %; MCH 31.1 pg (27.0-33.0); MCHC 31.1 % (32.0-36.0); MCV 100 fL (80-95); MPV 8.6 fL (8.0-11.0); Monocytes % 11.1 %; Neutrophils % 55.9 %; Platelet Count 139 10^3/uL (130-400); RBC 2.64 10^6/uL (4.36-5.78); RDW 16.4 % (11.8-14.1); RDW-SD 59.8 fL; WBC 4.58 10^3/uL (4.4-10.8)
[2024-10-30] MEDS: Darbepoetin 300 MCG SYR SC (08:47)
[2024-11-13 08:00] LABS: Abs Immature Grans 0.01 10^3/uL (0.0-0.06); Absolute Basophil Count 0.03 10^3/uL (0.0-0.2); Absolute Eosinophil Count 0.27 10^3/uL (0.0-0.7); Absolute Lymphocyte Count 1.29 10^3/uL (1.2-3.4); Absolute Monocyte Count 0.38 10^3/uL (0.1-0.8); Basophils % 0.6 %; Eosinophils % 5.8 %; HCT 24.6 % (40.0-50.0); HGB 7.8 g/dL (13.5-17.5); Immature Grans % 0.2 %; Lymphocytes % 27.6 %; MCH 32.2 pg (27.0-33.0); MCHC 31.7 % (32.0-36.0); MCV 102 fL (80-95); MPV 8.6 fL (8.0-11.0); Monocytes % 8.1 %; Neutrophils % 57.7 %; Platelet Count 135 10^3/uL (130-400); RBC 2.42 10^6/uL (4.36-5.78); RDW 16.1 % (11.8-14.1); RDW-SD 59.4 fL; WBC 4.68 10^3/uL (4.4-10.8)
[2024-11-13] MEDS: Darbepoetin 300 MCG SYR SC (08:46)
[2024-11-13] MEDS: Normal Saline Flush 5 ML SYR IVP (08:46)
[2024-11-13 09:14] VITALS: BP 143/65; PULSE 80; RESP 19; TEMP 36.4; O2SAT 97
[2024-11-13 09:29] VITALS: BP 121/65; PULSE 71; RESP 18; TEMP 36.3; O2SAT 97
[2024-11-13 09:44] VITALS: BP 123/62; PULSE 65; RESP 18; TEMP 36.4; O2SAT 96
[2024-11-13 10:17] VITALS: BP 142/65; PULSE 68; RESP 19; TEMP 36.4; O2SAT 98
[2024-11-13 11:13] VITALS: BP 158/71; PULSE 73; RESP 19; TEMP 36.3; O2SAT 99
== END 2024-11-21 23:59 | disposition home or self-care (01) ==
LOC: INF 03:12
PROVIDERS: PCP Family Medicine; Visit Provider Internal Medicine Hematology & Oncology
DX: N18.4 Chronic kidney disease, stage 4 (severe) (principal); D63.1 Anemia in chronic kidney disease
CPT/HCPCS: 36415; 36430; 86850; 86900; 86901; 86920; 86945; 96372; 85025; 86644; J0881; P9016

== ENCOUNTER 2024-12-11 01:50 | Outpatient (RCR) | payer MEDICARE, OTHER, SELFPAY ==
[2024-11-27 08:34] LABS: Abs Immature Grans 0.02 10^3/uL (0.0-0.06); Absolute Basophil Count 0.03 10^3/uL (0.0-0.2); Absolute Eosinophil Count 0.31 10^3/uL (0.0-0.7); Absolute Lymphocyte Count 1.18 10^3/uL (1.2-3.4); Absolute Monocyte Count 0.42 10^3/uL (0.1-0.8); Absolute Neutrophil Count 2.71 10^3/uL (1.2-6.7); Basophils % 0.6 %; Eosinophils % 6.6 %; HCT 25.9 % (40.0-50.0); HGB 8.2 g/dL (13.5-17.5); Immature Grans % 0.4 %; Lymphocytes % 25.3 %; MCH 31.9 pg (27.0-33.0); MCHC 31.7 % (32.0-36.0); MCV 101 fL (80-95); MPV 8.9 fL (8.0-11.0); Neutrophils % 58.1 %; Platelet Count 138 10^3/uL (130-400); RBC 2.57 10^6/uL (4.36-5.78); RDW 15.5 % (11.8-14.1); WBC 4.67 10^3/uL (4.4-10.8)
[2024-11-27] MEDS: Normal Saline Flush 5 ML SYR IVP (08:48)
[2024-11-27] MEDS: Darbepoetin 300 MCG SYR SC (08:54)
[2024-12-11 08:11] LABS: Abs Immature Grans 0.01 10^3/uL (0.0-0.06); Absolute Basophil Count 0.02 10^3/uL (0.0-0.2); Absolute Eosinophil Count 0.19 10^3/uL (0.0-0.7); Absolute Monocyte Count 0.38 10^3/uL (0.1-0.8); Absolute Neutrophil Count 2.39 10^3/uL (1.2-6.7); Basophils % 0.5 %; Eosinophils % 4.9 %; HGB 7.6 g/dL (13.5-17.5); Immature Grans % 0.3 %; Lymphocytes % 23.1 %; MCH 32.2 pg (27.0-33.0); MCV 98 fL (80-95); MPV 8.8 fL (8.0-11.0); Monocytes % 9.8 %; Neutrophils % 61.4 %; Platelet Count 128 10^3/uL (130-400); RBC 2.36 10^6/uL (4.36-5.78); RDW 15.6 % (11.8-14.1); RDW-SD 54.9 fL; WBC 3.89 10^3/uL (4.4-10.8)
[2024-12-11 08:30] LABS: Diff Comment Diff Reviewed; Hypochromasia 1+
[2024-12-11] MEDS: Normal Saline Flush 10 ML SYR IVP (08:39)
[2024-12-11 08:44] LABS: Estimated GFR 11.13 (mL/min/1.73m2); TSH 3.42 uIU/mL (0.36-3.74)
[2024-12-11] MEDS: Darbepoetin 300 MCG SYR SC (08:47)
[2024-12-11 08:54] LABS: CREATININE 5.2 mg/dL (0.70-1.30)
[2024-12-11 09:15] VITALS: BP 115/64; PULSE 78; RESP 20; TEMP 37.2; O2SAT 96
[2024-12-11 09:30] VITALS: BP 126/62; PULSE 77; RESP 20; TEMP 36.4; O2SAT 99
[2024-12-11 09:45] VITALS: BP 126/56; PULSE 69; RESP 18; TEMP 37; O2SAT 97
[2024-12-11 10:15] VITALS: BP 130/63; PULSE 72; RESP 19; TEMP 36.3; O2SAT 96
[2024-12-11 11:05] VITALS: BP 145/66; PULSE 71; RESP 19; TEMP 36.7; O2SAT 98
== END 2024-12-22 23:59 | disposition home or self-care (01) ==
LOC: INF 01:50
PROVIDERS: Internal Medicine Endocrinology, Diabetes & Metabolism; PCP Family Medicine; Visit Provider Internal Medicine Hematology & Oncology
DX: N18.4 Chronic kidney disease, stage 4 (severe) (principal); E11.65 Type 2 diabetes mellitus with hyperglycemia; D63.8 Anemia in other chronic diseases classified elsewhere
CPT/HCPCS: 36415; 36430; 86850; 86900; 86901; 86920; 86945; 96372; 82565; 83036; 84443; 85025; 86644; J0881; P9016

== ENCOUNTER 2025-01-08 03:14 | Outpatient (RCR) | payer MEDICARE, OTHER, SELFPAY ==
[2024-12-25 08:40] LABS: Abs Immature Grans 0.02 10^3/uL (0.0-0.06); Absolute Basophil Count 0.02 10^3/uL (0.0-0.2); Absolute Lymphocyte Count 0.95 10^3/uL (1.2-3.4); Absolute Monocyte Count 0.34 10^3/uL (0.1-0.8); Absolute Neutrophil Count 2.54 10^3/uL (1.2-6.7); Basophils % 0.5 %; Eosinophils % 2.5 %; HCT 22.8 % (40.0-50.0); HGB 7.5 g/dL (13.5-17.5); Immature Grans % 0.5 %; Lymphocytes % 23.9 %; MCH 32.5 pg (27.0-33.0); MCHC 32.9 % (32.0-36.0); MCV 99 fL (80-95); MPV 8.8 fL (8.0-11.0); Monocytes % 8.6 %; Platelet Count 136 10^3/uL (130-400); RBC 2.31 10^6/uL (4.36-5.78); RDW 16.1 % (11.8-14.1); WBC 3.97 10^3/uL (4.4-10.8)
[2024-12-25] MEDS: Normal Saline Flush 10 ML SYR IVP (08:40)
[2024-12-25] MEDS: Darbepoetin 300 MCG SYR SC (09:06)
[2024-12-25 09:44] VITALS: BP 125/63; PULSE 70; RESP 19; TEMP 36.6; O2SAT 100
[2024-12-25 10:00] VITALS: BP 138/67; PULSE 70; RESP 19; TEMP 36.7; O2SAT 96
[2024-12-25 10:15] VITALS: BP 147/70; PULSE 61; RESP 20; TEMP 36.6; O2SAT 97
[2024-12-25 11:40] VITALS: BP 159/75; PULSE 54; RESP 19; TEMP 36.8; O2SAT 98
[2025-01-08 08:05] LABS: Absolute Basophil Count 0.02 10^3/uL (0.0-0.2); Absolute Eosinophil Count 0.13 10^3/uL (0.0-0.7); Absolute Lymphocyte Count 0.94 10^3/uL (1.2-3.4); Absolute Monocyte Count 0.31 10^3/uL (0.1-0.8); Absolute Neutrophil Count 2.04 10^3/uL (1.2-6.7); Basophils % 0.6 %; Eosinophils % 3.8 %; HCT 24.5 % (40.0-50.0); HGB 7.8 g/dL (13.5-17.5); Lymphocytes % 27.3 %; MCH 31.7 pg (27.0-33.0); MCHC 31.8 % (32.0-36.0); MCV 100 fL (80-95); MPV 8.8 fL (8.0-11.0); Neutrophils % 59.3 %; Platelet Count 108 10^3/uL (130-400); RBC 2.46 10^6/uL (4.36-5.78); RDW 15.6 % (11.8-14.1); RDW-SD 56.8 fL; WBC 3.44 10^3/uL (4.4-10.8)
[2025-01-08] MEDS: Darbepoetin 300 MCG SYR SC (08:34)
[2025-01-08 09:00] VITALS: BP 150/60; PULSE 71; RESP 22; TEMP 37; O2SAT 99
[2025-01-08 09:40] VITALS: BP 150/60; PULSE 71; RESP 22; TEMP 37; O2SAT 99
[2025-01-08 10:00] VITALS: BP 161/68; PULSE 65; RESP 22; TEMP 36.8; O2SAT 97
[2025-01-08 10:15] VITALS: BP 148/66; PULSE 65; RESP 22; TEMP 37; O2SAT 97
[2025-01-08 10:45] VITALS: BP 166/57; PULSE 72; RESP 20; TEMP 37; O2SAT 99
[2025-01-08 11:30] VITALS: BP 144/79; PULSE 64; RESP 20; TEMP 36.9; O2SAT 98
[2025-01-08] MEDS: Normal Saline Flush 10 ML SYR IVP (11:45)
== END 2025-01-21 23:59 | disposition home or self-care (01) ==
LOC: INF 03:14
PROVIDERS: PCP Family Medicine; Visit Provider Internal Medicine Hematology & Oncology
DX: N18.4 Chronic kidney disease, stage 4 (severe) (principal); D63.1 Anemia in chronic kidney disease
CPT/HCPCS: 36415; 36430; 86850; 86900; 86901; 86920; 86945; 96372; 85025; 86644; J0881; P9016

== ENCOUNTER 2025-02-19 04:13 | Outpatient (RCR) | payer MEDICARE, OTHER, SELFPAY ==
[2025-01-22 08:00] LABS: Abs Immature Grans 0.01 10^3/uL (0.0-0.06); HCT 25.2 % (40.0-50.0); HGB 8.3 g/dL (13.5-17.5); Immature Grans % 0.3 %; MCH 31.9 pg (27.0-33.0); MCHC 32.9 % (32.0-36.0); MCV 97 fL (80-95); MPV 8.8 fL (8.0-11.0); Platelet Count 105 10^3/uL (130-400); RBC 2.60 10^6/uL (4.36-5.78); RDW 16.1 % (11.8-14.1); RDW-SD 57.6 fL; WBC 3.36 10^3/uL (4.4-10.8)
[2025-01-22] MEDS: Darbepoetin 300 MCG SYR SC (08:40)
[2025-01-22] MEDS: Normal Saline Flush 10 ML SYR IVP (08:56)
[2025-02-05 08:49] LABS: Abs Immature Grans 0.01 10^3/uL (0.0-0.06); HCT 24.4 % (40.0-50.0); HGB 8.0 g/dL (13.5-17.5); Immature Grans % 0.3 %; MCH 32.7 pg (27.0-33.0); MCHC 32.8 % (32.0-36.0); MCV 100 fL (80-95); MPV 8.7 fL (8.0-11.0); Platelet Count 127 10^3/uL (130-400); RBC 2.45 10^6/uL (4.36-5.78); RDW 15.6 % (11.8-14.1); RDW-SD 56.6 fL; WBC 3.58 10^3/uL (4.4-10.8)
[2025-02-05 09:32] LABS: Albumin 2.2 g/dL (3.4-5.0); Anion Gap 8.1 mmol/L (3-11); BUN 53 mg/dL (7-18); CO2 28.9 mmol/L (21.0-32.0); Calcium 8.6 mg/dL (8.5-10.1); Chloride 94 mmol/L (98-107); Estimated GFR 13.98 (mL/min/1.73m2); Glucose 166 mg/dL (74-106); Potassium 3.0 mmol/L (3.5-5.1); Sodium 131 mmol/L (136-145); Uric Acid 9.6 mg/dL (3.5-7.2)
[2025-02-05 09:39] LABS: Iron 66 ug/dL (65-175); Total Iron Binding Capacity 138 ug/dL (250-450); Transferrin Sat 48 % (20-55)
[2025-02-05] MEDS: Darbepoetin 300 MCG SYR SC (09:41)
[2025-02-05 10:20] VITALS: BP 167/72; PULSE 66; RESP 20; TEMP 36.7; O2SAT 99
[2025-02-05 10:26] LABS: Ferritin 1506 ng/mL (26-388)
[2025-02-05 10:35] VITALS: BP 147/72; PULSE 58; RESP 19; TEMP 36.3; O2SAT 98
[2025-02-05 10:55] VITALS: BP 150/75; PULSE 49; RESP 19; TEMP 36.4; O2SAT 99
[2025-02-05 11:05] VITALS: BP 92/61; PULSE 51; RESP 19; TEMP 36.3; O2SAT 98
[2025-02-05 11:53] VITALS: BP 158/78; PULSE 58; RESP 19; TEMP 36.3; O2SAT 99
[2025-02-05] MEDS: Normal Saline Flush 10 ML SYR IVP (12:21)
[2025-02-19 08:27] LABS: Abs Immature Grans 0.01 10^3/uL (0.0-0.06); HCT 25.8 % (40.0-50.0); HGB 8.1 g/dL (13.5-17.5); Immature Grans % 0.3 %; MCH 31.9 pg (27.0-33.0); MCHC 31.4 % (32.0-36.0); MCV 102 fL (80-95); MPV 9.0 fL (8.0-11.0); Platelet Count 116 10^3/uL (130-400); RBC 2.54 10^6/uL (4.36-5.78); RDW 16.6 % (11.8-14.1); RDW-SD 62.4 fL; WBC 3.29 10^3/uL (4.4-10.8)
[2025-02-19] MEDS: Darbepoetin 300 MCG SYR SC (08:53)
[2025-02-19] MEDS: Normal Saline Flush 10 ML SYR IVP (09:01)
== END 2025-02-21 23:59 | disposition home or self-care (01) ==
LOC: INF 04:13
PROVIDERS: Registered Nurse Nephrology; PCP Family Medicine; Visit Provider Internal Medicine Hematology & Oncology
DX: N18.9 Chronic kidney disease, unspecified (principal); D63.1 Anemia in chronic kidney disease
CPT/HCPCS: 36415; 36430; 80048; 86850; 86900; 86901; 86920; 86945; 96372; 82040; 82728; 83540; 83550; 83970; 84100; 84550; 85025; 86644; J0881; P9016

== ENCOUNTER 2025-03-19 02:29 | Outpatient (RCR) | payer MEDICARE, OTHER, SELFPAY ==
[2025-02-26 12:37] LABS: Abs Immature Grans 0.00 10^3/uL (0.0-0.06); HCT 26.7 % (40.0-50.0); HGB 8.4 g/dL (13.5-17.5); Immature Grans % 0.0 %; MCH 32.6 pg (27.0-33.0); MCHC 31.5 % (32.0-36.0); MCV 104 fL (80-95); MPV 9.0 fL (8.0-11.0); Platelet Count 152 10^3/uL (130-400); RBC 2.58 10^6/uL (4.36-5.78); RDW 16.4 % (11.8-14.1); RDW-SD 63.0 fL; WBC 3.48 10^3/uL (4.4-10.8)
[2025-02-26 12:55] LABS: Albumin 2.4 g/dL (3.4-5.0); Anion Gap 8.8 mmol/L (3-11); BUN 48 mg/dL (7-18); CO2 27.2 mmol/L (21.0-32.0); Calcium 9.2 mg/dL (8.5-10.1); Chloride 98 mmol/L (98-107); Estimated GFR 11.95 (mL/min/1.73m2); Glucose 185 mg/dL (74-106); Potassium 4.6 mmol/L (3.5-5.1); Sodium 134 mmol/L (136-145); Uric Acid 8.8 mg/dL (3.5-7.2)
[2025-02-26 13:37] LABS: Iron 99 ug/dL (65-175); Total Iron Binding Capacity 138 ug/dL (250-450); Transferrin Sat 72 % (20-55)
[2025-02-26 13:54] LABS: Ferritin 1628 ng/mL (26-388)
[2025-03-05 09:25] LABS: Abs Immature Grans 0.00 10^3/uL (0.0-0.06); HCT 25.9 % (40.0-50.0); HGB 8.1 g/dL (13.5-17.5); Immature Grans % 0.0 %; MCH 32.7 pg (27.0-33.0); MCHC 31.3 % (32.0-36.0); MCV 104 fL (80-95); MPV 9.5 fL (8.0-11.0); Platelet Count 102 10^3/uL (130-400); RBC 2.48 10^6/uL (4.36-5.78); RDW 15.8 % (11.8-14.1); RDW-SD 61.1 fL; WBC 2.98 10^3/uL (4.4-10.8)
[2025-03-05] MEDS: Darbepoetin 300 MCG SYR SC (09:58)
[2025-03-05] MEDS: Normal Saline Flush 10 ML SYR IVP (09:58)
[2025-03-05 12:03] LABS: PROTEIN 192.7 mg/dL; Prot/Crea Ur Ratio 8.16
[2025-03-19] MEDS: Normal Saline Flush 10 ML SYR IVP (07:49)
[2025-03-19 08:39] LABS: Abs Immature Grans 0.00 10^3/uL (0.0-0.06); HCT 26.7 % (40.0-50.0); HGB 8.3 g/dL (13.5-17.5); Immature Grans % 0.0 %; MCH 32.7 pg (27.0-33.0); MCHC 31.1 % (32.0-36.0); MCV 105 fL (80-95); MPV 9.4 fL (8.0-11.0); Platelet Count 117 10^3/uL (130-400); RBC 2.54 10^6/uL (4.36-5.78); RDW 14.9 % (11.8-14.1); RDW-SD 57.6 fL; WBC 3.19 10^3/uL (4.4-10.8)
[2025-03-19] MEDS: Darbepoetin 300 MCG SYR SC (09:06)
[2025-03-19 09:10] LABS: RBC Morphology Normal
== END 2025-03-24 23:59 | disposition home or self-care (01) ==
LOC: INF 02:29
PROVIDERS: Registered Nurse Nephrology; PCP Family Medicine; Visit Provider Internal Medicine Hematology & Oncology
DX: N18.4 Chronic kidney disease, stage 4 (severe) (principal); D63.1 Anemia in chronic kidney disease
CPT/HCPCS: 36415; 80048; 86850; 86900; 86901; 96372; 82040; 82565; 82728; 83540; 83550; 83970; 84100; 84156; 84550; 85025; J0881

== ENCOUNTER 2025-04-16 08:00 | Outpatient (RCR) | payer MEDICARE, OTHER, SELFPAY ==
[2025-04-02 09:03] LABS: Abs Immature Grans 0.01 10^3/uL (0.0-0.06); HCT 24.6 % (40.0-50.0); HGB 7.6 g/dL (13.5-17.5); Immature Grans % 0.4 %; MCH 32.2 pg (27.0-33.0); MCHC 30.9 % (32.0-36.0); MCV 104 fL (80-95); MPV 9.0 fL (8.0-11.0); Platelet Count 113 10^3/uL (130-400); RBC 2.36 10^6/uL (4.36-5.78); RDW 14.2 % (11.8-14.1); RDW-SD 53.4 fL; WBC 2.74 10^3/uL (4.4-10.8)
[2025-04-02 09:21] LABS: ALT 13 U/L (16-63); AST 15 U/L (15-37); Albumin 2.1 g/dL (3.4-5.0); Alkaline Phosphatase 265 U/L (46-116); Anion Gap 11.5 mmol/L (3-11); BUN 46 mg/dL (7-18); Bilirubin, Total 0.5 mg/dL (0.2-1.0); CO2 22.5 mmol/L (21.0-32.0); Calcium 8.6 mg/dL (8.5-10.1); Chloride 99 mmol/L (98-107); Estimated GFR 11.66 (mL/min/1.73m2); Glucose 203 mg/dL (74-106); Magnesium 1.6 mg/dL (1.8-2.4); Potassium 4.2 mmol/L (3.5-5.1); Sodium 133 mmol/L (136-145); Total Protein 6.6 g/dL (6.4-8.2); Uric Acid 8.2 mg/dL (3.5-7.2)
[2025-04-02 09:35] LABS: Hemoglobin A1C 6.4 % (<5.7)
[2025-04-02 09:36] LABS: Glucose 100 mg/dL (Negative)
[2025-04-02 09:39] LABS: Vitamin D 25 Total 36 ng/mL (30-100)
[2025-04-02 09:55] LABS: Creatinine,Urine 21.56 mg/dL
[2025-04-02 09:57] LABS: C & S Indicated? No; RBC 0-2 HPF (0-2); WBC Negative HPF (0-5)
[2025-04-02 10:11] LABS: PROTEIN 181.6 mg/dL; Prot/Crea Ur Ratio 8.53
[2025-04-02 10:13] VITALS: BP 151/76; PULSE 64; RESP 18; TEMP 36.5; O2SAT 100
[2025-04-02 10:25] LABS: Calculated LDL 52 mg/dL (<100); Cholesterol 101 mg/dL (<200); HDL Cholesterol 27 mg/dL (>or=40); Triglyceride 114 mg/dL (<150); Vitamin B12 1488 pg/mL (193-986)
[2025-04-02 10:26] LABS: Ferritin 1499 ng/mL (26-388); Folate > 20.0 ng/mL (8.6-20.0)
[2025-04-02] MEDS: Normal Saline Flush 10 ML SYR IVP (10:27)
[2025-04-02 10:28] VITALS: BP 153/79; PULSE 61; RESP 19; TEMP 36.4; O2SAT 100
[2025-04-02] MEDS: Darbepoetin 300 MCG SYR SC (10:32)
[2025-04-02 10:34] LABS: Iron 79 ug/dL (65-175)
[2025-04-02 10:45] VITALS: BP 158/71; PULSE 66; RESP 18; TEMP 36.1; O2SAT 100
[2025-04-02 11:19] VITALS: BP 158/68; PULSE 61; RESP 19; TEMP 36.5; O2SAT 99
[2025-04-02 11:48] VITALS: BP 168/78; PULSE 62; RESP 18; TEMP 36.2; O2SAT 98
[2025-04-03 12:48] LABS: Calcium (Random Urine) <1.0 mg/dL (See Note)
[2025-04-09 12:44] LABS: 1,25-Dihydroxyvitamin D <8.0 pg/mL (18-64)
[2025-04-16] MEDS: Normal Saline Flush 10 ML SYR IVP (08:03)
[2025-04-16 08:26] LABS: Abs Immature Grans 0.01 10^3/uL (0.0-0.06); HCT 27.8 % (40.0-50.0); HGB 8.8 g/dL (13.5-17.5); Immature Grans % 0.3 %; MCH 32.2 pg (27.0-33.0); MCHC 31.7 % (32.0-36.0); MCV 102 fL (80-95); MPV 9.1 fL (8.0-11.0); Platelet Count 108 10^3/uL (130-400); RBC 2.73 10^6/uL (4.36-5.78); RDW 14.6 % (11.8-14.1); RDW-SD 53.7 fL; WBC 3.52 10^3/uL (4.4-10.8)
[2025-04-16] MEDS: Darbepoetin 300 MCG SYR SC (08:42)
== END 2025-04-23 23:59 | disposition home or self-care (01) ==
LOC: INF 08:00
PROVIDERS: PCP Family Medicine; Visit Provider Internal Medicine Hematology & Oncology
DX: N18.4 Chronic kidney disease, stage 4 (severe) (principal); D63.1 Anemia in chronic kidney disease; E11.22 Type 2 diabetes mellitus with diabetic chronic kidney disease; E55.9 Vitamin D deficiency, unspecified
CPT/HCPCS: 36415; 36430; 80053; 80061; 82306; 83735; 86850; 86900; 86901; 86920; 86945; 87799; 96372; 80197; 81003; 81015; 82340; 82565; 82607; 82652; 82728; 82746; 83036; 83540; 83970; 84100; 84105; 84156; 84550; 85025; 85045; 86644; J0881; P9016

== ENCOUNTER 2025-04-22 15:50 | Outpatient (REF) | payer MEDICARE, OTHER, SELFPAY ==
[2025-04-22 21:20] LABS: HCT 25.8 % (40.0-50.0); HGB 8.0 g/dL (13.5-17.5); MCH 32.0 pg (27.0-33.0); MCHC 31.0 % (32.0-36.0); MCV 103 fL (80-95); MPV 9.9 fL (8.0-11.0); Platelet Count 109 10^3/uL (130-400); RBC 2.50 10^6/uL (4.36-5.78); RDW 14.5 % (11.8-14.1); RDW-SD 54.8 fL; WBC 3.90 10^3/uL (4.4-10.8)
[2025-04-22 21:33] LABS: ALT 18 U/L (16-63); AST 23 U/L (15-37); Albumin 2.2 g/dL (3.4-5.0); Alkaline Phosphatase 295 U/L (46-116); Anion Gap 12.8 mmol/L (3-11); BUN 55 mg/dL (7-18); Bilirubin, Total 0.6 mg/dL (0.2-1.0); CO2 19.2 mmol/L (21.0-32.0); Calcium 8.5 mg/dL (8.5-10.1); Chloride 102 mmol/L (98-107); Estimated GFR 12.25 (mL/min/1.73m2); Glucose 155 mg/dL (74-106); Potassium 5.0 mmol/L (3.5-5.1); Sodium 134 mmol/L (136-145); Total Protein 6.4 g/dL (6.4-8.2)
== END 2025-04-22 15:51 | disposition home or self-care (01) ==
LOC: NCHCN 15:50
PROVIDERS: PCP Family Medicine; Visit Provider Family Medicine
DX: R53.83 Other fatigue (principal)
CPT/HCPCS: 80053; 85027

== ENCOUNTER 2025-05-04 11:57 | Inpatient (IN) | payer MEDICARE, OTHER, SELFPAY ==
[2025-05-04] VITALS (40 sets, daily range): BP systolic 118–164; BP diastolic 36–83; PULSE 44–80; RESP 15–23; TEMP 36.4–36.6; O2SAT 98–100
--- NOTE | 2025-05-04 12:00 | RT.EKG_ITS ---
APPROVED REPORT Exam: Resting ECG Reason for Exam: weakness Patient Location: E HR:74 bpm ECG Measurements Heart Rate 74 AXIS SC [id number] P [id number] QRSd 157 QRS -63 QT 465 T 76 QTc 500 Conclusion Atrial flutter with predominant 3:1 AV block...A-rate 211, multiple Ps RBBB and LAFB...QRSd >120mS, axis(-40,240) No Occlusion MT
--- NOTE | 2025-05-04 12:00 | W.ED.GENAD ---
Discharge Plan Disposition Patient Disposition: Admit to [facility] Discharge Details Clinical Impression: CKD (chronic kidney disease), Hypoalbuminemia, Hypomagnesemia, Leukopenia, Thrombocytopenia, Cyst of left kidney, Enlarged prostate, Liver mass Primary Care Provider: Violetta Sanford ED Provider: Rayo Su Canalou Meds and New Rx's Prescriptions: No Action folic acid 1 mg tablet 1 mg PO DAILY mycophenolate mofetil [CellCept] 250 mg capsule 500 mg PO BID calcitriol 0.25 mcg capsule 0.5 mcg PO DAILY acetaminophen 325 mg capsule 650 mg PO Q6H PRN amlodipine 10 mg tablet 10 mg PO DAILY atorvastatin 20 mg tablet 20 mg PO DAILY chlorthalidone 25 mg tablet 25 mg PO DAILY primidone 50 mg tablet 150 mg PO BID torsemide 20 mg tablet 40 mg PO DAILY insulin glargine U-300 conc [Toujeo Max U-300 SoloStar] 300 unit/mL (3 mL) insulin pen 70 unit subcut DAILY Aranesp (in polysorbate) 200 mcg/mL solution 300 mcg SUBCUT QWEEK cholecalciferol (vitamin D3) 50 mcg (2,000 unit) capsule 50 mcg PO DAILY mecobalamin (vitamin B12) 1,000 mcg tablet,chewable 1,000 mcg PO DAILY carvedilol 6.25 mg tablet 6.25 mg PO BID Rx Instructions: must administer with a meal/food prednisone 5 mg tablet 5 mg PO DIRECTED Qty: 49 0RF Rx Instructions: 40 mg x 2 days, 30 mg x 2 days, 20 mg x 2 days, 15 mg x 2 days, 10 mg x 2 days, 5 mg x 2 days, 2.5 mg x 2 days, then stop. mupirocin calcium 2 % cream 1 applic topical TID Qty: 30 1RF Rx Instructions: Apply to lower legs three times daily for the next 1-3 weeks and then as needed benzonatate 100 mg capsule 100 - 200 mg PO TID PRN (Reason: cough) Qty: 60 0RF Rx Instructions: Take 1-2 capsules by mouth three times a day as needed for cough aspirin [[place] Low Dose Aspirin] 81 MG tablet,delayed release (DR/EC) 81 mg PO DAILY omeprazole [Prilosec] 40 MG capsule,delayed release(DR/EC) 40 mg PO DAILY montelukast 10 MG tablet 10 mg PO DAILY multivitamin [Daily Multi-Vitamin] 1 EACH tablet 1 ea PO DAILY hydralazine 100 mg tablet 100 mg PO TID fluticasone propionate 50 mcg/actuation spray,suspension 1 spray intranasal DAILY Rx Instructions: administer into each nostril vitamin B complex [B Complex-Vitamin B12] Tablet 1 tab PO BID tacrolimus [Prograf] 1 mg capsule 1 mg PO Q12H sodium bicarbonate 650 mg tablet 1,300 mg PO BID insulin aspart U-100 [Novolog FlexPen U-100 Insulin] 100 unit/mL Insulin Pen 0 units subcut 0800,1200,1700 Qty: 0 0RF Rx Instructions: sliding scale Inhaler, Assist Devices [Pocket Chamber] 1 ea miscellaneous DIRECTED Qty: 0 0RF dextromethorphan-guaifenesin 10-100 mg/5 mL Syrup 10 ml PO Q6H PRN PRNQty: 0 0RF levalbuterol tartrate 45 mcg/actuation HFA aerosol inhaler 2 inh inhalation Q6H PRNQty: 15 2RF ipratropium-albuterol 0.5 mg-3 mg(2.5 mg base)/3 mL solution for nebulization 3 ml inhalation Q6H PRN (Reason: Wheezing) Qty: 24 2RF ondansetron HCl 4 mg tablet 4 mg PO DAILY Patient Comments: TAKE ONE TABLET BY MOUTH TWICE A DAY BEFORE MEAL(S) triamcinolone acetonide 0.1 % cream 1 applic TOPICAL DAILY primidone 250 mg tablet 250 mg PO QHS Patient Comments: TAKE ONE TABLET BY MOUTH EVERY NIGHT colestipol 1 gram tablet 1 g PO DAILY primidone 125 mg tablet 125 mg PO QHS Patient Comments: TAKE ONE TABLET BY MOUTH EVERY NIGHT WITH 250MG TABLET HPI General Date/Time Provider Initiated Documentation: 05/04/25 11:59. HPI Narrative: MDM This is an elderly afebrile and not tachycardic 69-year-old male with multiple weeks of diarrhea and abdominal tenderness concerning for intra-abdominal infection for which he will undergo CT scan of his abdomen pelvis with IV contrast following labs. No pain on proportion to suggest necrotizing soft tissue infection. No dysuria nor frequency to suggest UTI. Given right lower quadrant tenderness I am concerned about the possibility of appendicitis. Diverticulitis is also on the differential. Will obtain lipase to assess for pancreatitis. No chest pain to suggest ACS so I did not obtain a troponin. QTc is mildly prolonged at 500 ms so we will obtain magnesium level. No rash to abdomen to suggest zoster. No history of ulcerative colitis nor Crohn's disease to suggest exacerbation of inflammatory bowel disease. Patient does have atrial fibrillation similar to prior. He has no acute injury pattern. Patient is on mycophenolate. No vomiting to suggest increased risk for small bowel obstruction. No shortness of breath to suggest acute CHF exacerbation so did not feel patient required diuresis. Will ensure he is not vomiting given his history of renal transplant. He reportedly is no longer taking tacrolimus. Given diarrhea will check a TSH and free T4. Per vital chart review he has been on doxycycline for a cough and prescribed Imodium for diarrhea. 1:21 PM CBC with persistent macrocytic anemia. Mild thrombocytopenia. Persistent thrombocytopenia and leukopenia. 1:36 PM Patient with hyperkalemia potassium 5.6 for which she will receive calcium gluconate. ANSELMO superimposed on CKD. Increasingly elevated alkaline phosphatase. Hypoalbuminemia. Elevated BUN. Mild hypomagnesemia. Negative COVID influenza RSV. Elevated TSH pending free T4. Normal lipase. 1:57 PM Reassuring normal free T4. Given no cough we will defer chest x-ray as my suspicion is low for Legionella. Given recent antibiotic use will check a C. difficile PCR and also add on stool PCR. With acute electrolyte abnormalities will hospitalize. It certainly could be that the patient hepatic mass found on CT could be causing him to have diarrhea. He has normal reassuring gallbladder. Patient I discussed his enlarged prostate and left renal cysts. Patient making urine and appropriate for local hospitalization. Given CKD I did not obtain a contrast study. 2:48 PM I was in touch with Dr. Lovett for the hospitalist service who graciously agreed to accept the patient for hospitalization. 3:30 PM Urinalysis nitrite leukoesterase negative. Patient is making good urine. HPI This is a patient with a history of kidney transplant presenting with diarrhea, weakness, nausea, and vomiting. The patient reports experiencing symptoms of diarrhea, weakness, nausea, and vomiting. He was prescribed medication for his nausea and dry heaves by Dr. Sanford on 04/29/2025. Despite the medication, he experienced a recurrence of dry heaves this morning. He continues to have diarrhea, for which he was given another medication on 05/03/2025. A stool sample test returned negative results. He reports no abdominal pain or presence of blood in his stool. He has no history of Crohn's disease or ulcerative colitis. He has not traveled recently. His urination is normal, and he takes medication to aid urination. The patient has a fistula in his arm, which was placed 20 years ago, but is not currently on dialysis. He underwent a kidney transplant 20 years ago and is on CellCept but not on tacrolimus. He has not been vomiting these medications. The patient has atrial flutter and is on baby aspirin. PAST SURGICAL HISTORY: Kidney transplant 20 years ago. Exam General: Elderly-appearing in no acute distress speaking in complete sentences. Head: Normocephalic, atraumatic. Eye: Extraocular eye movements intact. No conjunctival injection. No scleral icterus. Ear, nose, mouth, throat: Grossly normal inspection. Normal voice, handling secretions normally. Neck: Trachea midline. Cardiovascular: Well-perfused distal extremities. Irregular irregular rhythm Respiratory: Nonlabored respiration. Clear lungs bilaterally. Gastrointestinal: Nondistended abdomen. Soft. Minimal epigastric tenderness. No rebound. No guarding. Musculoskeletal: No edema. Moving all 4 extremities spontaneously. Left upper extremity fistula positive thrill. Skin: Normal for age and race, grossly normal temperature and turgor. No acute rash. Neurologic: Alert and appropriate, no apparent acute deficits. Psychiatric: Mood and manner are appropriate. Grooming and personal hygiene are appropriate. Related Data Home Medications ?Medication ?Instructions ?Recorded ?Confirmed aspirin 81 mg tablet,delayed 81 mg PO DAILY 10/31/12 05/04/25 release ([place] Low Dose Aspirin) montelukast 10 mg tablet 10 mg PO DAILY 10/31/12 05/04/25 omeprazole 40 mg capsule,delayed 40 mg PO DAILY 10/31/12 05/04/25 release (Prilosec) Held on 05/04/25. Instructions: Pt Stopped/Never Started multivitamin (Daily Multi-Vitamin 1 ea PO DAILY 05/10/13 05/04/25 tablet) folic acid 1 mg tablet 1 mg PO DAILY 06/12/18 05/04/25 insulin aspart U-100 100 unit/mL 0 units subcut 0800,1200,1700 #0 mL 11/15/18 05/04/25 (3 mL) subcutaneous pen (Novolog FlexPen U-100 Insulin aspart) fluticasone propionate 50 1 spray intranasal DAILY 09/04/20 05/04/25 mcg/actuation nasal spray,suspension hydralazine 100 mg tablet 100 mg PO TID 09/04/20 05/04/25 Held on 05/04/25. Instructions: Pt Stopped/Never Started tacrolimus 1 mg capsule, 1 mg PO Q12H 09/04/20 05/04/25 immediate-release (Prograf) vitamin B complex (B 1 tab PO BID 09/04/20 05/04/25 Complex-Vitamin B12 tablet) calcitriol 0.25 mcg capsule 0.5 mcg PO DAILY 04/14/21 05/04/25 mycophenolate mofetil 250 mg 500 mg PO BID 04/14/21 05/04/25 capsule (CellCept) Inhaler, Assist Devices [Pocket 1 ea miscellaneous DIRECTED ##0 01/16/23 05/04/25 Chamber] sodium bicarbonate 650 mg tablet 1,300 mg PO BID 01/24/23 05/04/25 Held on 05/04/25. Instructions: Pt Stopped/Never Started acetaminophen 325 mg capsule 650 mg PO Q6H PRN 10/19/23 05/04/25 amlodipine 10 mg tablet 10 mg PO DAILY 10/19/23 05/04/25 atorvastatin 20 mg tablet 20 mg PO DAILY 10/19/23 05/04/25 chlorthalidone 25 mg tablet 25 mg PO DAILY 10/19/23 05/04/25 cholecalciferol (vitamin D3) 50 50 mcg PO DAILY 10/19/23 05/04/25 mcg (2,000 unit) capsule darbepoetin cristy in polysorbat 200 300 mcg subcut QWEEK 10/19/23 05/04/25 mcg/mL in polysorbate injection (Aranesp) insulin glargine U-300 conc 300 70 unit subcut DAILY 10/19/23 05/04/25 unit/mL (3 mL) subcutaneous pen (Toujeo Max U-300 SoloStar) mecobalamin (vitamin B12) 1,000 1,000 mcg PO DAILY 10/19/23 05/04/25 mcg chewable tablet primidone 50 mg tablet 150 mg PO BID 10/19/23 05/04/25 torsemide 20 mg tablet 40 mg PO DAILY 10/19/23 05/04/25 dextromethorphan-guaifenesin 10 10 ml PO Q6H PRN PRN #0 mL 12/16/23 05/04/25 mg-100 mg/5 mL oral syrup ipratropium 0.5 mg-albuterol 3 mg 3 ml inhalation Q6H PRN Wheezing 12/16/23 05/04/25 (2.5 mg base)/3 mL nebulization #24 units soln levalbuterol tartrate 45 2 inh inhalation Q6H PRN #15 grams 12/16/23 05/04/25 mcg/actuation aerosol inhaler carvedilol 6.25 mg tablet 6.25 mg PO BID 12/19/24 05/04/25 mupirocin calcium 2 % topical cream 1 applic topical TID #30 grams 12/19/24 05/04/25 prednisone 5 mg tablet 5 mg PO DIRECTED #49 tabs 12/19/24 05/04/25 Held on 05/04/25. Instructions: Pt Stopped/Never Started benzonatate 100 mg capsule 100 - 200 mg (1 - 2 x 100 mg) PO 12/20/24 05/04/25 TID PRN cough #60 caps colestipol 1 gram tablet 1 g PO DAILY 05/04/25 05/04/25 ondansetron HCl 4 mg tablet 4 mg PO DAILY 05/04/25 05/04/25 primidone 125 mg tablet 125 mg PO QHS 05/04/25 05/04/25 primidone 250 mg tablet 250 mg PO QHS 05/04/25 05/04/25 triamcinolone acetonide 0.1 % 1 applic topical DAILY 05/04/25 05/04/25 topical cream Previous Rx's ?Medication ?Instructions ?Recorded insulin aspart U-100 100 unit/mL 0 units subcut 0800,1200,1700 #0 mL 11/15/18 (3 mL) subcutaneous pen (Novolog FlexPen U-100 Insulin aspart) Inhaler, Assist Devices [Pocket 1 ea miscellaneous DIRECTED ##0 01/16/23 Chamber] dextromethorphan-guaifenesin 10 10 ml PO Q6H PRN PRN #0 mL 12/16/23 mg-100 mg/5 mL oral syrup ipratropium 0.5 mg-albuterol 3 mg 3 ml inhalation Q6H PRN Wheezing 12/16/23 (2.5 mg base)/3 mL nebulization #24 units soln levalbuterol tartrate 45 2 inh inhalation Q6H PRN #15 grams 12/16/23 mcg/actuation aerosol inhaler mupirocin calcium 2 % topical cream 1 applic topical TID #30 grams 12/19/24 prednisone 5 mg tablet 5 mg PO DIRECTED #49 tabs 12/19/24 Held on 05/04/25. Instructions: Pt Stopped/Never Started benzonatate 100 mg capsule 100 - 200 mg (1 - 2 x 100 mg) PO 12/20/24 TID PRN cough #60 caps Allergies Allergy/AdvReac Type Severity Reaction Status Date / Time levofloxacin Allergy Mild Unknown Verified 05/04/25 12:29 sulfamethoxazole (From Allergy Mild Unknown Verified 05/04/25 12:29 Bactrim) trimethoprim (From Bactrim) Allergy Mild Unknown Verified 05/04/25 12:29 doxycycline Allergy Unknown Other (See Verified 05/04/25 12:29 Comment) tree nut Allergy Unknown Other (See Verified 05/04/25 12:29 Comment) clindamycin Allergy Skin Rash Verified 05/04/25 12:29 ibuprofen Allergy Other (See Verified 05/04/25 12:29 Comment) Penicillins Allergy SWELLING Verified 05/04/25 12:29 lisinopril AdvReac KIDNEY Verified 05/04/25 12:29 SHUT DOWN yaneth inhibitors Allergy Mild Skin Rash Uncoded 05/04/25 12:29 CATS & BIRDS AdvReac Intermediate WHEEZING Uncoded 05/04/25 12:29 General RADHA: 3 PFSH All Active Problems (Updated 12/17/23 @ 00:01 by LYLA LUNA) Diarrhea (Acute) Liver mass (Acute) Enlarged prostate (Acute) Cyst of left kidney (Acute) Thrombocytopenia (Chronic) Leukopenia (Acute) Hypomagnesemia (Acute) Hypoalbuminemia (Acute) CKD (chronic kidney disease) (Chronic) History of pneumonia (Acute) Cough (Acute) Pneumonia (Acute) Anemia (Chronic) CAP (community acquired pneumonia) (Acute) Basal cell carcinoma (Acute) Delayed wound healing (Acute ~2019) burn left arm happened 2019 fistula near wound Abnormal electrocardiogram (Acute) Phantom pain (Acute) Tremor (Acute) per pCP treated with primidone RH HTN (hypertension) (Chronic) Diabetes mellitus (Chronic) Edentulous (Acute) Esophageal foreign body (Acute) Food impaction of esophagus (Acute) Macrocytic anemia (Acute) Gastroparesis diabeticorum (Acute) Kidney transplant recipient (Acute) Chronic kidney disease (Chronic) Hypertension (Chronic) Hyperlipidemia (Chronic) CAD (coronary artery disease) (Chronic) GERD (gastroesophageal reflux disease) (Chronic) Asthma (Chronic) Chronic anxiety (Chronic) Chronic depression (Chronic) Intention tremor (Chronic) Status post appendectomy (Acute) Physical medicine and rehabilitation procedures (Acute 06/27/13) Dysphagia (Acute) Hyperkalemia (Acute) CHF (congestive heart failure) (Acute) Diastolic CHF (Acute) Acute kidney injury superimposed on chronic kidney disease (Acute) Uncontrolled insulin dependent diabetes mellitus (Acute) Ambulatory dysfunction (Acute) Wenckebach second degree AV block (Acute) Fluid level behind tympanic membrane of left ear (Acute) Sensory hearing loss, bilateral (Acute) Tinnitus, bilateral (Acute) Osteoma of ear canal (Acute) Atrial fibrillation (Chronic) per pcp Pt had one episode 11/10 RH Kidney transplant recipient (Chronic) 2005 Medical History Left lower lobe pneumonia Sepsis CAP (community acquired pneumonia) Infection of amputation stump of right lower extremity Tubular adenoma of colon (02/01/17) Abscess of axilla (05/11/13) Personal history of allergy to other antibiotic agent Vitamin B 12 deficiency Adenomatous colon polyp History of colon polyps Lumbar back pain Erectile dysfunction Anxiety and depression Hydrocele Intention tremor Tricuspid insufficiency Obesity Stage 3 severe COPD by GOLD classification Hyperlipidemia Sciatica GERD (gastroesophageal reflux disease) MELISSA (obstructive sleep apnea) per PCP not using CPAP 01/20/23 RH Surgical History Status post bilateral below knee amputation History of bilateral cataract extraction 1999 H/O sinus surgery 2010 History of cardiac catheterization 2005 History of appendectomy 2012 History of colonoscopy (~10/2020) History of below-knee amputation of both lower extremities 2000 and 2010 Hx of amputation below knee Kidney transplant recipient 01/08/2014 EGD - MAC (04/02/16) Colonoscopy - MAC (02/01/17) Family History Father , cancer at 64 No problems noted. Brother , SM Cell Cancer No problems noted. Sister Breast cancer Mother No problems noted. Social History Smoking/Tobacco Use Status: Former Tobacco Use Quit Date: 07/25/90 Tobacco: How many years used: 15 Smoking risk assessment performed?: Yes Alcohol Intake: never Drug use: Never Substance use type: does not use Household members: spouse Housing: house What is your relationship status?: Panel score (0-1 are the most socially isolated patients): 1 Do you feel safe at home: Yes Do you feel safe in your relationship?: Yes
[2025-05-04 13:07] LABS: Abs Immature Grans 0.01 10^3/uL (0.0-0.06); HCT 29.2 % (40.0-50.0); HGB 8.9 g/dL (13.5-17.5); Immature Grans % 0.2 %; MCH 31.4 pg (27.0-33.0); MCHC 30.5 % (32.0-36.0); MCV 103 fL (80-95); MPV 9.2 fL (8.0-11.0); RBC 2.83 10^6/uL (4.36-5.78); RDW 14.3 % (11.8-14.1); RDW-SD 53.9 fL; WBC 4.13 10^3/uL (4.4-10.8)
[2025-05-04 13:18] LABS: Platelet Count 96 10^3/uL (130-400); RBC Morphology Normal
[2025-05-04 13:30] LABS: ALT 17 U/L (16-63); AST 22 U/L (15-37); Albumin 2.0 g/dL (3.4-5.0); Alkaline Phosphatase 335 U/L (46-116); Anion Gap 10.7 mmol/L (3-11); Bilirubin, Total 0.4 mg/dL (0.2-1.0); CO2 20.3 mmol/L (21.0-32.0); Calcium 8.9 mg/dL (8.5-10.1); Chloride 107 mmol/L (98-107); Estimated GFR 10.63 (mL/min/1.73m2); Glucose 121 mg/dL (74-106); Lipase 13 U/L (<78); Magnesium 1.5 mg/dL (1.8-2.4); Potassium 5.6 mmol/L (3.5-5.1); Sodium 138 mmol/L (136-145); TSH (W/Ref FT4) 6.67 uIU/mL (0.36-3.74); Total Protein 6.5 g/dL (6.4-8.2)
[2025-05-04 13:30] LABS: COVID-19 PCR Negative (Negative); RSV PCR Negative (Negative)
[2025-05-04 13:34] LABS: BUN 112 mg/dL (7-18)
--- NOTE | 2025-05-04 13:48 | DI.CT_ITS ---
Exam(s) CT ABDOMEN PELVIS WO EXAM: CT ABDOMEN PELVIS WO CLINICAL HISTORY: Diarrhea abdominal pain. TECHNIQUE: Imaging Protocol: Axial computed tomography images with coronal and sagittal reformatted images were created and reviewed. COMPARISON: CT ABD PELVIS WO CONTRAST from 12/19/[address] ABDOMEN PELVIS WO from 09/12/[address] ABDOMEN PELVIS WO from 11/12/2018 FINDINGS: ABDOMEN: Lung Bases: Small nodular infiltrate is seen in the right middle lobe and the left lower lobe. Liver: Normal density. There is a 13.4 AP by 11.3 transverse by 11.7 craniocaudad cm hypodense mass occupying the right lobe of the liver. There are smaller lesions seen in the liver. There is a 1.8 x 2.1 cm hypodense mass in the left lobe of the liver. There is also a 9 mm lesion in the caudal aspect of the right lobe of the liver. Gallbladder and biliary tract: There is a gallstone present. There is no biliary ductal dilatation. Pancreas: Normal density, no abnormal calcifications or inflammatory process. Spleen: Normal. Kidneys: There is bilateral renal atrophy. There is nodularity seen of the superior pole of the right kidney measuring 3.7 x 3.5 cm. This was not present on the prior CT scan of the abdomen and pelvis from 11/12/2018. A renal neoplasm should be suspected.No radiodense stones or obstructive uropathy. There are tiny hypodensities seen in both kidneys which are too small for further characterization but may reflect small cysts. There is a renal transplant in the left renal pelvis. There is mild dilatation of the renal pelvis of the transplant. No obstructing stone is seen. Adrenal glands: No mass is seen. Lymph nodes: Within normal limits. Abdominal Aorta: Abdominal portion non-dilated. Atherosclerosis is present particularly at the origins of both renal arteries causing significant renal artery stenosis. There is also marked stenosis seen in the distal common femoral arteries bilaterally. PELVIS: Bladder:Symmetric distention, no gross wall thickening. Bowel: No obstruction or bowel wall thickening. There are surgical clips seen in the cecum suggesting prior appendectomy. Peritoneal cavity: There is a small amount of perihepatic and perisplenic ascites. There is small amount of pelvic ascites. No free air. Reproductive organs: The prostate gland is enlarged. Bones: Within normal limits. There are no aggressive osseous lesions present. Soft Tissues: There is mild edema seen in the soft tissues. There is mild muscular fatty atrophy present. There are bilateral fat containing inguinal hernias. IMPRESSION: 1. New solid 3.7 x 3.5 cm mass in the superior pole of the right [place] kidney suspicious for primary renal carcinoma. This may be further evaluated with a MRI of the abdomen. 2. At least 3 hepatic masses suspicious for metastatic disease. Hepatic MRI may be obtained for further characterization. 3. Small amount of abdominal pelvic ascites. 4. Bilateral [place] renal atrophy. 5. Enlarged prostate gland. 6. Reticular nodular infiltrate seen in the right middle lobe and left lower lobe. While infectious or inflammatory small vessel process should be considered, metastatic disease should also be considered. 7. The preliminary [facility] report was reviewed. RADIATION DOSE DELIVERED: 968.22mGy.cm Total DLP DATA REPOSITORY: All CT scans at this facility are submitted to the National Radiology Data Registry (NRDR) Dose Index Registry (DIR) with the [employer] (A[employer]). RADIATION OPTIMIZATION: All CT scans at this facility use at least one of these dose optimization techniques: automated exposure control; mA and/or kV adjustment per patient size (includes targeted exams where dose is matched to clinical indication); or iterative reconstruction.
--- NOTE | 2025-05-04 14:04 | DI.[facility]_ITS ---
PROCEDURE INFORMATION: Exam: CT Abdomen And Pelvis Without Contrast Exam date and time: 05/04/2025 1:37 PM Age: 69 years old Clinical indication: Generalized; Abdominal pain, diarrhea TECHNIQUE: Imaging protocol: Computed tomography of the abdomen and pelvis without contrast. Creatinine 5.5 and GFR 10, not on dialysis COMPARISON: CT ABDOMEN PELVIS WO 11/12/2018 11:49 PM FINDINGS: Liver: Heterogeneous, predominantly low attenuation lesion in the right hepatic lobe measures 13 x 12 x 12 cm. Gallbladder and biliary ducts: Normal. No calcified stones. No ductal dilation. Pancreas: Partial fatty replacement of the pancreas. Spleen: Normal. No splenomegaly. Adrenal glands: Normal. No mass. Kidneys and ureters: Atrophic [place] kidneys. Solid lesion arising from the superior pole right kidney measures 2.8 x 3 cm. Transplant kidney in the left pelvis without hydronephrosis. Cortical renal cyst midpole left kidney measures 1.4 cm. Stomach and bowel: Unremarkable. No obstruction. No mucosal thickening. Appendix: No evidence of appendicitis. Intraperitoneal space: Mild pelvic ascites. Vasculature: Unremarkable. No abdominal aortic aneurysm. Lymph nodes: Unremarkable. No enlarged lymph nodes. Urinary bladder: Unremarkable as visualized. Reproductive: Prostate gland enlarged measuring 5.2 x 5.8 cm. Bones/joints: Degenerative changes lower lumbar spine. No acute fracture. Soft tissues: Unremarkable. IMPRESSION: 1. Heterogeneous, predominantly low attenuation lesion in the right hepatic lobe measures 13 x 12 x 12 cm. Further characterization not possible on current examination. Given elevated creatinine and GFR, additional workup with MRI necessary. 2. Atrophic [place] kidneys. Solid lesion arising from the superior pole right kidney measures 2.8 x 3 cm. Additional workup advised. 3. Transplant kidney in the left pelvis without hydronephrosis. 4. Prostate gland enlarged measuring 5.2 x 5.8 cm. Recommend correlation with PSA. 5. Mild pelvic ascites. Dictated and Authenticated by: Aggie Vazquez MD. Orderin Georges Cade MD
[2025-05-04] MEDS: Calcium Gluconate 4.65 MEQ/10 ML VIAL 4.65 MG IVP (14:16)
[2025-05-04] MEDS: Normal Saline 50 ML (14:17)
[2025-05-04] MEDS: Lidocaine 2% Jelly 6 ML SYR (14:57)
--- NOTE | 2025-05-04 14:59 | W.PM.HP.N ---
Date of service: 05/04/25 Time of Service: 14:59 Assessment and Plan Assessment and plan (1) Acute kidney injury superimposed on chronic kidney disease: Status: Acute Assessment and plan: In the setting of GI losses from diarrhea Continue gentle IV hydration Patient with history of kidney transplant and chronic kidney disease Avoid nephrotoxic drugs Closely monitor hydration status (intake and output), kidney function and electrolytes Imaging shows no evidence of hydronephrosis (2) Diarrhea: Status: Acute Assessment and plan: C. difficile and stool for bacterial pathogens, lactoferrin, occult blood pending Continue IV hydration and electrolyte replacement (3) Hyperkalemia: Status: Acute Assessment and plan: In the setting of acute kidney injury Low potassium/renal diabetic diet No dynamic EKG changes Was given calcium gluconate in the emergency department Follow potassium closely (4) Hypomagnesemia: Status: Acute Assessment and plan: In the setting of GI losses Received 2 g of IV magnesium Follow levels (5) Liver mass: Status: Acute Assessment and plan: Will need MRI to further characterize, can be done outpatient if unavailable (6) Diabetes mellitus: Status: Acute Assessment and plan: diabetic diet sliding scale with coverage AC hemoglobin A1C added and pending will hold basal insulin for now, adjust as needed. (7) Kidney transplant recipient: Status: Chronic Assessment and plan: Continue home medications, mycophenolate and tacrolimus Tacrolimus level sent and pending (8) COPD (chronic obstructive pulmonary disease): Status: None Assessment and plan: Stable with no evidence of exacerbation (9) LEFT FOREARM AV FISTULA: Status: None Assessment and plan: Not currently on dialysis discussed with DR Lovett History of Present Illness Narrative: Patient with past medical history significant for kidney transplant, atrial fibrillation, congestive heart failure, diabetes mellitus, COPD, hypertension presents to the emergency department for evaluation of weakness in the setting of acute diarrhea. His workup in the emergency department does show acute on chronic renal insufficiency. Potassium elevated at 5.6. Hemodynamically he was stable and afebrile. Did not meet sepsis criteria. Stool collection is still pending at time of admission. Hospitalist is contacted to admit the patient under observation for IV hydration and further monitoring. His potassium was found to be elevated at 5.6 he was provided calcium gluconate in the emergency department. Magnesium 1.5, given 2 g of IV magnesium. He was also given a fluid bolus of 500 cc normal saline. Incidental finding of a liver mass on CT imaging of the abdomen and pelvis without contrast. Recommended follow-up with MRI when available. Review of Systems All systems reviewed & are unremarkable except as noted in HPI and below PFSH All Active Problems (Updated 12/17/23 @ 00:01 by LYLA LUNA) Diarrhea (Acute) Liver mass (Acute) Enlarged prostate (Acute) Cyst of left kidney (Acute) Thrombocytopenia (Chronic) Leukopenia (Acute) Hypomagnesemia (Acute) Hypoalbuminemia (Acute) CKD (chronic kidney disease) (Chronic) History of pneumonia (Acute) Cough (Acute) Pneumonia (Acute) Anemia (Chronic) CAP (community acquired pneumonia) (Acute) Basal cell carcinoma (Acute) Delayed wound healing (Acute ~2019) burn left arm happened 2019 fistula near wound Abnormal electrocardiogram (Acute) Phantom pain (Acute) Tremor (Acute) per pCP treated with primidone RH HTN (hypertension) (Chronic) Diabetes mellitus (Acute) Edentulous (Acute) Esophageal foreign body (Acute) Food impaction of esophagus (Acute) Macrocytic anemia (Acute) Gastroparesis diabeticorum (Acute) Kidney transplant recipient (Acute) Chronic kidney disease (Chronic) Hypertension (Chronic) Hyperlipidemia (Chronic) CAD (coronary artery disease) (Chronic) GERD (gastroesophageal reflux disease) (Chronic) Asthma (Chronic) Chronic anxiety (Chronic) Chronic depression (Chronic) Intention tremor (Chronic) Status post appendectomy (Acute) Physical medicine and rehabilitation procedures (Acute 06/27/13) Dysphagia (Acute) Hyperkalemia (Acute) CHF (congestive heart failure) (Acute) Diastolic CHF (Acute) Acute kidney injury superimposed on chronic kidney disease (Acute) Uncontrolled insulin dependent diabetes mellitus (Acute) Ambulatory dysfunction (Acute) Wenckebach second degree AV block (Acute) Fluid level behind tympanic membrane of left ear (Acute) Sensory hearing loss, bilateral (Acute) Tinnitus, bilateral (Acute) Osteoma of ear canal (Acute) Atrial fibrillation (Chronic) per pcp Pt had one episode 11/10 RH Kidney transplant recipient (Chronic) 2005 Medical History Left lower lobe pneumonia Sepsis CAP (community acquired pneumonia) Infection of amputation stump of right lower extremity Tubular adenoma of colon (02/01/17) Abscess of axilla (05/11/13) Personal history of allergy to other antibiotic agent Vitamin B 12 deficiency Adenomatous colon polyp History of colon polyps Lumbar back pain Erectile dysfunction Anxiety and depression Hydrocele Intention tremor Tricuspid insufficiency Obesity Stage 3 severe COPD by GOLD classification Hyperlipidemia Sciatica GERD (gastroesophageal reflux disease) MELISSA (obstructive sleep apnea) per PCP not using CPAP 01/20/23 RH Surgical History Status post bilateral below knee amputation History of bilateral cataract extraction 1999 H/O sinus surgery 2010 History of cardiac catheterization 2005 History of appendectomy 2012 History of colonoscopy (~10/2020) History of below-knee amputation of both lower extremities 2000 and 2010 Hx of amputation below knee Kidney transplant recipient 01/08/2014 EGD - MAC (04/02/16) Colonoscopy - MAC (02/01/17) Family History Father , cancer at 64 No problems noted. Brother , SM Cell Cancer No problems noted. Sister Breast cancer Mother No problems noted. Social History Smoking/Tobacco Use Status: Former Tobacco Use Quit Date: 07/25/90 Tobacco: How many years used: 15 Smoking risk assessment performed?: Yes Alcohol Intake: never Drug use: Never Substance use type: does not use Household members: spouse Housing: house What is your relationship status?: Panel score (0-1 are the most socially isolated patients): 1 Do you feel safe at home: Yes Do you feel safe in your relationship?: Yes Meds Allergies and Home Medications Allergies Allergy/AdvReac Type Severity Reaction Status Date / Time levofloxacin Allergy Mild Unknown Verified 05/04/25 12:29 sulfamethoxazole (From Allergy Mild Unknown Verified 05/04/25 12:29 Bactrim) trimethoprim (From Bactrim) Allergy Mild Unknown Verified 05/04/25 12:29 doxycycline Allergy Unknown Other (See Verified 05/04/25 12:29 Comment) tree nut Allergy Unknown Other (See Verified 05/04/25 12:29 Comment) clindamycin Allergy Skin Rash Verified 05/04/25 12:29 ibuprofen Allergy Other (See Verified 05/04/25 12:29 Comment) Penicillins Allergy SWELLING Verified 05/04/25 12:29 lisinopril AdvReac KIDNEY Verified 05/04/25 12:29 SHUT DOWN yaneth inhibitors Allergy Mild Skin Rash Uncoded 05/04/25 12:29 CATS & BIRDS AdvReac Intermediate WHEEZING Uncoded 05/04/25 12:29 Home Medications ?Medication ?Instructions ?Recorded ?Confirmed ?Type aspirin 81 mg tablet,delayed 81 mg PO DAILY 10/31/12 05/04/25 History release ([place] Low Dose Aspirin) montelukast 10 mg tablet 10 mg PO DAILY 10/31/12 05/04/25 History omeprazole 40 mg capsule,delayed 40 mg PO DAILY 10/31/12 05/04/25 History release (Prilosec) Held on 05/04/25. Instructions: Pt Stopped/Never Started multivitamin (Daily Multi-Vitamin 1 ea PO DAILY 05/10/13 05/04/25 History tablet) folic acid 1 mg tablet 1 mg PO DAILY 06/12/18 05/04/25 History insulin aspart U-100 100 unit/mL 0 units subcut 0800,1200,1700 #0 mL 11/15/18 05/04/25 Rx (3 mL) subcutaneous pen (Novolog FlexPen U-100 Insulin aspart) fluticasone propionate 50 1 spray intranasal DAILY 09/04/20 05/04/25 History mcg/actuation nasal spray,suspension hydralazine 100 mg tablet 100 mg PO TID 09/04/20 05/04/25 History Held on 05/04/25. Instructions: Pt Stopped/Never Started tacrolimus 1 mg capsule, 1 mg PO Q12H 09/04/20 05/04/25 History immediate-release (Prograf) vitamin B complex (B 1 tab PO BID 09/04/20 05/04/25 History Complex-Vitamin B12 tablet) calcitriol 0.25 mcg capsule 0.5 mcg PO DAILY 04/14/21 05/04/25 History mycophenolate mofetil 250 mg 500 mg PO BID 04/14/21 05/04/25 History capsule (CellCept) Inhaler, Assist Devices [Pocket 1 ea miscellaneous DIRECTED ##0 01/16/23 05/04/25 Rx Chamber] sodium bicarbonate 650 mg tablet 1,300 mg PO BID 01/24/23 05/04/25 History Held on 05/04/25. Instructions: Pt Stopped/Never Started acetaminophen 325 mg capsule 650 mg PO Q6H PRN 10/19/23 05/04/25 History amlodipine 10 mg tablet 10 mg PO DAILY 10/19/23 05/04/25 History atorvastatin 20 mg tablet 20 mg PO DAILY 10/19/23 05/04/25 History chlorthalidone 25 mg tablet 25 mg PO DAILY 10/19/23 05/04/25 History cholecalciferol (vitamin D3) 50 50 mcg PO DAILY 10/19/23 05/04/25 History mcg (2,000 unit) capsule darbepoetin cristy in polysorbat 200 300 mcg subcut QWEEK 10/19/23 05/04/25 History mcg/mL in polysorbate injection (Aranesp) insulin glargine U-300 conc 300 70 unit subcut DAILY 10/19/23 05/04/25 History unit/mL (3 mL) subcutaneous pen (Toujeo Max U-300 SoloStar) mecobalamin (vitamin B12) 1,000 1,000 mcg PO DAILY 10/19/23 05/04/25 History mcg chewable tablet primidone 50 mg tablet 150 mg PO BID 10/19/23 05/04/25 History torsemide 20 mg tablet 40 mg PO DAILY 10/19/23 05/04/25 History dextromethorphan-guaifenesin 10 10 ml PO Q6H PRN PRN #0 mL 12/16/23 05/04/25 Rx mg-100 mg/5 mL oral syrup ipratropium 0.5 mg-albuterol 3 mg 3 ml inhalation Q6H PRN Wheezing 12/16/23 05/04/25 Rx (2.5 mg base)/3 mL nebulization #24 units soln levalbuterol tartrate 45 2 inh inhalation Q6H PRN #15 grams 12/16/23 05/04/25 Rx mcg/actuation aerosol inhaler carvedilol 6.25 mg tablet 6.25 mg PO BID 12/19/24 05/04/25 History mupirocin calcium 2 % topical cream 1 applic topical TID #30 grams 12/19/24 05/04/25 Rx prednisone 5 mg tablet 5 mg PO DIRECTED #49 tabs 12/19/24 05/04/25 Rx Held on 05/04/25. Instructions: Pt Stopped/Never Started benzonatate 100 mg capsule 100 - 200 mg (1 - 2 x 100 mg) PO 12/20/24 05/04/25 Rx TID PRN cough #60 caps colestipol 1 gram tablet 1 g PO DAILY 05/04/25 05/04/25 History ondansetron HCl 4 mg tablet 4 mg PO DAILY 05/04/25 05/04/25 History primidone 125 mg tablet 125 mg PO QHS 05/04/25 05/04/25 History primidone 250 mg tablet 250 mg PO QHS 05/04/25 05/04/25 History triamcinolone acetonide 0.1 % 1 applic topical DAILY 05/04/25 05/04/25 History topical cream Exam Narrative Exam Narrative: Chronically ill-appearing male older than stated age head is atraumatic eyes nonicteric noninjected oral mucosa is slightly dry skin is pale warm and dry cardiovascular regular rate and rhythm respirations even and unlabored abdomen is slightly distended guarding soft tender generalized, moves all extremities equally neurologic he is awake alert oriented no focal deficits psychiatric appropriate mood and affect Results Labs 05/04/25 12:59 05/04/25 12:59 Labs: Laboratory Results - last 24 hr 05/04/25 05/04/25 05/04/25 12:39 12:45 12:59 WBC 4.13 L RBC 2.83 L Hgb 8.9 L Hct 29.2 L MCV 103 H MCH 31.4 MCHC 30.5 L RDW 14.3 H Plt Count 96 L MPV 9.2 Immature Gran % 0.2 Neutrophils % 46.4 Lymphocytes % 42.9 Monocytes % 8.5 Eosinophils % 1.5 Basophils % 0.5 Nucleated RBC % 0.0 Absolute Neutrophils 1.92 Absolute Lymphocytes 1.77 Absolute Monocytes 0.35 Absolute Eosinophils 0.06 Absolute Basophils 0.02 RBC Morphology Normal Sodium 138 Potassium 5.6 H Chloride 107 Carbon Dioxide 20.3 L Anion Gap 10.7 BUN 112 H* Creatinine 5.4 H* Est GFR (CKD-EPI 2020) 10.63 Glucose 121 H Calcium 8.9 Magnesium Cancelled 1.5 L Total Bilirubin 0.4 AST 22 ALT 17 Alkaline Phosphatase 335 H Total Protein 6.5 Albumin 2.0 L Lipase Cancelled 13 TSH 6.67 H Free T4 COVID-19 Source Nasopharynx SARS-CoV-2 (PCR) Negative Influenza Type A (PCR) Negative Influenza Type B (PCR) Negative RSV (PCR) Negative 05/04/25 12:59 WBC RBC Hgb Hct MCV MCH MCHC RDW Plt Count MPV Immature Gran % Neutrophils % Lymphocytes % Monocytes % Eosinophils % Basophils % Nucleated RBC % Absolute Neutrophils Absolute Lymphocytes Absolute Monocytes Absolute Eosinophils Absolute Basophils RBC Morphology Sodium Potassium Chloride Carbon Dioxide Anion Gap BUN Creatinine Est GFR (CKD-EPI 2020) Glucose Calcium Magnesium Total Bilirubin AST ALT Alkaline Phosphatase Total Protein Albumin Lipase TSH Cancelled Free T4 0.92 COVID-19 Source SARS-CoV-2 (PCR) Influenza Type A (PCR) Influenza Type B (PCR) RSV (PCR) Last Vital Signs Temp 36.4 C L 05/04/25 12:24 Pulse 57 L 05/04/25 14:57 Resp 18 05/04/25 14:57 BP 138/50 L 05/04/25 14:57 Pulse Ox 100 05/04/25 14:57 Time Spent Time spent with Patient: 55-74 minutes Time was spent: preparing to see the patient(eg.review tests), obtaining and/or reviewing separately otained hiistory, ordering medications,tests, procedures, indepentently interpreting results and counseling the patient
[2025-05-04 15:04] LABS: Glucose 100 mg/dL (Negative)
[2025-05-04] MEDS: Normal Saline 500 ML IV (15:07)
[2025-05-04] MEDS: MAGNESIUM SULFATE 2 GM/50 ML BAG IVINF (15:08)
[2025-05-04 15:11] LABS: Creatinine,Urine 25.00 mg/dL; PROTEIN 160.9 mg/dL (0.0-11.9)
[2025-05-04 15:22] LABS: C & S Indicated? No; WBC 0-2 HPF (0-5)
[2025-05-04 15:30] LABS: Lab Add On Test DONE
[2025-05-04 15:45] LABS: Iron 78 ug/dL (65-175); Total Iron Binding Capacity 63 ug/dL (250-450); Transferrin Sat 124 % (20-55)
[2025-05-04 15:48] LABS: Hemoglobin A1C 6.9 % (<5.7)
--- NOTE | 2025-05-04 16:10 | W.PC.ACHO ---
Registration Status: REG ER Primary Language: Preferred Language: Kazakh ED Information & Data Chief Complaint GenMedical 05/04/25 12:12 Chief Complaint GenMedical 05/04/25 12:04 Triage Note Pt reports generalized 05/04/25 12:04 weakness and fatigue. Pt states he has had nausea and diarrhea for 3-4 weeks. Pt has seen PCP and has been taking medications that have not resolved symptoms. Medical / Surgical History (Last Reviewed 12/15/23 @ 19:09 by Rayo Warner) MELISSA (obstructive sleep apnea) Left lower lobe pneumonia Sepsis Infection of amputation stump of right lower extremity Tubular adenoma of colon (02/01/17) Abscess of axilla (05/11/13) Personal history of allergy to other antibiotic agent Vitamin B 12 deficiency Adenomatous colon polyp History of colon polyps Lumbar back pain Erectile dysfunction Anxiety and depression Hydrocele Intention tremor Tricuspid insufficiency Obesity Stage 3 severe COPD by GOLD classification Hyperlipidemia Sciatica GERD (gastroesophageal reflux disease) MELISSA (obstructive sleep apnea) (Last Reviewed 12/15/23 @ 19:09 by Rayo Warner) Status post bilateral below knee amputation History of bilateral cataract extraction H/O sinus surgery History of cardiac catheterization History of appendectomy History of colonoscopy (~10/2020) History of below-knee amputation of both lower extremities Hx of amputation below knee Kidney transplant recipient EGD - MAC (04/02/16) Colonoscopy - MAC (02/01/17) Most Recent Vital Signs Temperature 36.4 C L 05/04/25 12:24 Temperature Source Oral 05/04/25 12:24 Pulse 60 05/04/25 15:17 Pulse 59 L 05/04/25 15:17 Respiratory Rate 19 05/04/25 15:17 Respiratory Effort Normal, Non-Labored 05/04/25 12:36 Respiratory Depth Normal 05/04/25 12:36 Respiratory Pattern Normal 05/04/25 12:36 Blood Pressure 146/60 H 05/04/25 15:17 Blood Pressure Mean 81 05/04/25 15:17 Blood Pressure Position Sitting 05/04/25 12:24 Pulse Oximetry 100 05/04/25 15:17 Oxygen Delivery Method Room Air 05/04/25 12:24 Oxygen Flow Rate 0 05/04/25 12:24 Pain Level 0 05/04/25 12:24 Allergies levofloxacin Allergy (Mild, Verified 05/04/25 12:29) Unknown sulfamethoxazole (From Bactrim) Allergy (Mild, Verified 05/04/25 12:29) Unknown trimethoprim (From Bactrim) Allergy (Mild, Verified 05/04/25 12:29) Unknown doxycycline Allergy (Unknown, Verified 05/04/25 12:) Other (See Comment) tree nut Allergy (Unknown, Verified 05/04/25 12:29) Other (See Comment) clindamycin Allergy (Verified 05/04/25 12:29) Skin Rash ibuprofen Allergy (Verified 05/04/25 12:) Other (See Comment) Penicillins Allergy (Verified 05/04/25 12:) SWELLING lisinopril Adverse Reaction (Verified 05/04/25 12:) KIDNEY SHUT DOWN yaneth inhibitors Allergy (Mild, Uncoded 05/04/25 12:) Skin Rash CATS & BIRDS Adverse Reaction (Intermediate, Uncoded 05/04/25 12:) WHEEZING IV IV Catheter Type [Right Saline Lock Antecubital] IV Catheter Gauge [Right 18 Antecubital] Diagnostics 05/04/25 05/04/25 05/04/25 Range/Units 14:54 12:59 12:59 WBC 4.13 L (4.4-10.8) 10^3/uL RBC 2.83 L (4.36-5.78) 10^6/uL Hgb 8.9 L (13.5-17.5) g/dL Hct 29.2 L (40.0-50.0) % MCV 103 H (80-95) fL MCH 31.4 (27.0-33.0) pg MCHC 30.5 L (32.0-36.0) % RDW 14.3 H (11.8-14.1) % Plt Count 96 L (130-400) 10^3/uL MPV 9.2 (8.0-11.0) fL Reticulocyte % (Auto) 3.3 H (0.5-2.4) % Immature Gran % 0.2 % Neutrophils % 46.4 % Lymphocytes % 42.9 % Monocytes % 8.5 % Eosinophils % 1.5 % Basophils % 0.5 % Nucleated RBC % 0.0 (0.0-0.3) % Absolute Neutrophils 1.92 (1.2-6.7) 10^3/uL Absolute Lymphocytes 1.77 (1.2-3.4) 10^3/uL Absolute Monocytes 0.35 (0.1-0.8) 10^3/uL Absolute Eosinophils 0.06 (0.0-0.7) 10^3/uL Absolute Basophils 0.02 (0.0-0.2) 10^3/uL RBC Morphology Normal Sodium 138 (136-145) mmol/L Potassium 5.6 H (3.5-5.1) mmol/L Chloride 107 (98-107) mmol/L Carbon Dioxide 20.3 L (21.0-32.0) mmol/L Anion Gap 10.7 (3-11) mmol/L BUN 112 H* (7-18) mg/dL Creatinine 5.4 H* (0.70-1.30) mg/dL Est GFR (CKD-EPI 2020) 10.63 (mL/min/1.73m2) Glucose 121 H (74-106) mg/dL Hemoglobin A1c Pending Calcium 8.9 (8.5-10.1) mg/dL Magnesium 1.5 L Iron Pending TIBC Pending Transferrin % Sat Pending Ferritin Pending Total Bilirubin 0.4 (0.2-1.0) mg/dL AST 22 (15-37) U/L ALT 17 (16-63) U/L Alkaline Phosphatase 335 H (46-116) U/L Total Protein 6.5 (6.4-8.2) g/dL Albumin 2.0 L (3.4-5.0) g/dL Lipase 13 Vitamin B12 Pending Folate Pending TSH Cancelled 6.67 H (0.36-3.74) uIU/mL Free T4 0.92 (0.76-1.46) ng/dL Urine Color Yellow (Yellow) Urine Clarity Clear (Clear) Urine pH 5.0 (5-8) Ur Specific [place] 1.015 (1.005-1.025) Urine Protein >=300 H (Neg-Trace) mg/dL Urine Ketones Negative (Negative) mg/dL Urine Blood Small H (Negative) Urine Nitrite Negative (Negative) Urine Bilirubin Negative (Negative) Urine Urobilinogen 0.2 (Up to 0.2) mg/dL Ur Leukocyte Esterase Negative (Negative) Urine RBC 3-5 H (0-2) HPF Urine WBC 0-2 (0-5) HPF Ur Epithelial Cells Rare (Negative) HPF Urine Crystals Negative (Negative) HPF Urine Bacteria Rare (Negative) HPF Urine Casts 0-2 Hyaline (Negative) LPF Urine Mucus Negative (Negative) Ur Culture Indicated? No Ur Random Creatinine 25.00 mg/dL U Random Total Protein 160.9 H (0.0-11.9) mg/dL Urine Glucose 100 H (Negative) mg/dL Tacrolimus Pending COVID-19 Source SARS-CoV-2 (PCR) (Negative) Influenza Type A (PCR) (Negative) Influenza Type B (PCR) (Negative) RSV (PCR) (Negative) Add-On Test Request DONE 05/04/25 05/04/25 Range/Units 12:45 12:39 WBC (4.4-10.8) 10^3/uL RBC (4.36-5.78) 10^6/uL Hgb (13.5-17.5) g/dL Hct (40.0-50.0) % MCV (80-95) fL MCH (27.0-33.0) pg MCHC (32.0-36.0) % RDW (11.8-14.1) % Plt Count (130-400) 10^3/uL MPV (8.0-11.0) fL Reticulocyte % (Auto) (0.5-2.4) % Immature Gran % % Neutrophils % % Lymphocytes % % Monocytes % % Eosinophils % % Basophils % % Nucleated RBC % (0.0-0.3) % Absolute Neutrophils (1.2-6.7) 10^3/uL Absolute Lymphocytes (1.2-3.4) 10^3/uL Absolute Monocytes (0.1-0.8) 10^3/uL Absolute Eosinophils (0.0-0.7) 10^3/uL Absolute Basophils (0.0-0.2) 10^3/uL RBC Morphology Sodium (136-145) mmol/L Potassium (3.5-5.1) mmol/L Chloride (98-107) mmol/L Carbon Dioxide (21.0-32.0) mmol/L Anion Gap (3-11) mmol/L BUN (7-18) mg/dL Creatinine (0.70-1.30) mg/dL Est GFR (CKD-EPI 2020) (mL/min/1.73m2) Glucose (74-106) mg/dL Hemoglobin A1c Calcium (8.5-10.1) mg/dL Magnesium Cancelled Iron TIBC Transferrin % Sat Ferritin Total Bilirubin (0.2-1.0) mg/dL AST (15-37) U/L ALT (16-63) U/L Alkaline Phosphatase (46-116) U/L Total Protein (6.4-8.2) g/dL Albumin (3.4-5.0) g/dL Lipase Cancelled Vitamin B12 Folate TSH (0.36-3.74) uIU/mL Free T4 (0.76-1.46) ng/dL Urine Color (Yellow) Urine Clarity (Clear) Urine pH (5-8) Ur Specific [place] (1.005-1.025) Urine Protein (Neg-Trace) mg/dL Urine Ketones (Negative) mg/dL Urine Blood (Negative) Urine Nitrite (Negative) Urine Bilirubin (Negative) Urine Urobilinogen (Up to 0.2) mg/dL Ur Leukocyte Esterase (Negative) Urine RBC (0-2) HPF Urine WBC (0-5) HPF Ur Epithelial Cells (Negative) HPF Urine Crystals (Negative) HPF Urine Bacteria (Negative) HPF Urine Casts (Negative) LPF Urine Mucus (Negative) Ur Culture Indicated? Ur Random Creatinine mg/dL U Random Total Protein (0.0-11.9) mg/dL Urine Glucose (Negative) mg/dL Tacrolimus COVID-19 Source Nasopharynx SARS-CoV-2 (PCR) Negative (Negative) Influenza Type A (PCR) Negative (Negative) Influenza Type B (PCR) Negative (Negative) RSV (PCR) Negative (Negative) Add-On Test Request Intake and Output - 24 Hour Total 05/04/25 11:57 thru 05/04/25 14:58 Output Total 200 Balance -200 Weight 106.141 kg Output: Urine 200 Other: Urine Color Yellow Urine Appearance Clear Comment insertion without any problems. Assisted by June RN Urinary Catheter Urinary Catheter Date of 05/04/25 Insertion [Urethral (Chang)] Time of insertion [Urethral ( 14:50 Chang)] Falls Risk Assessment History of Falls No History 05/04/25 12:36 Contributing Factors No Factors 05/04/25 12:36 Ambulatory Aids Uses ambulatory device 05/04/25 12:36 Tubes/Lines None 10/11/25 12:36 Gait Evaluation W/no contributing factors 05/04/25 12:36 Cognition No cognitive impairment 05/04/25 12:36 Fall Total Score 05/04/25 12:36 Level of Risk Moderate Risk 05/04/25 12:36 Problems (Last Reviewed 12/15/23 @ 19:09 by Rayo Warner) Diarrhea (Acute) Liver mass (Acute) Enlarged prostate (Acute) Cyst of left kidney (Acute) Thrombocytopenia (Chronic) Leukopenia (Acute) Hypomagnesemia (Acute) Hypoalbuminemia (Acute) CKD (chronic kidney disease) (Chronic) Hyperkalemia (Acute) Acute kidney injury superimposed on chronic kidney disease (Acute) Kidney transplant recipient (Chronic) v v v v v v v v v Sending and/or Receiving Nurses: Please use comment section below to note any information pertinent to the patient hand-off not included above. Information / Comments: Reuben is a samia man, very much AOx4, VSS. Came to ER with c/o gen weakness, diarrhea during last 3-4 weeks. PCP treatment didnt bring relief. Pt had one BM in ER and still needs it to be collected for c-Diff. Pt is continenx2, however, seems to not fully empty his bladder - post void residual on Chang insertion was 250ml. Urine is yellow, clear. pt has AV fistula on his left arm - no BP or IV should be done there. 18G on LAC. Bilateral BKA, uses prostetics, but currently is too weak to ambulate. Report received from: SHEILA Chino
[2025-05-04 16:26] LABS: Ferritin 1499 ng/mL (26-388); Folate > 20.0 ng/mL (8.6-20.0); Vitamin B12 > 2000 pg/mL (193-986)
[2025-05-04] MEDS: Heparin 5,000 UNITS/ML VIAL 5000 UNITS SC (17:36)
[2025-05-04] MEDS: Normal Saline 1,000 ML 100 ML IV (17:36)
--- NOTE | 2025-05-04 17:55 | TELEP.MEDR_ITS ---
Date of service: 05/04/25 Time of Service: 18:00 Telepharmacy Home Med Rec Allergies Allergies: levofloxacin Allergy (Mild, Verified 05/04/25 12:29) Unknown sulfamethoxazole (From Bactrim) Allergy (Mild, Verified 05/04/25 12:29) Unknown trimethoprim (From Bactrim) Allergy (Mild, Verified 05/04/25 12:29) Unknown doxycycline Allergy (Unknown, Verified 05/04/25 12:29) Other (See Comment) tree nut Allergy (Unknown, Verified 05/04/25 12:29) Other (See Comment) clindamycin Allergy (Verified 05/04/25 12:29) Skin Rash ibuprofen Allergy (Verified 05/04/25 12:29) Other (See Comment) Penicillins Allergy (Verified 05/04/25 12:29) SWELLING lisinopril Adverse Reaction (Verified 05/04/25 12:29) KIDNEY SHUT DOWN yaneth inhibitors Allergy (Mild, Uncoded 05/04/25 12:29) Skin Rash CATS & BIRDS Adverse Reaction (Intermediate, Uncoded 05/04/25 12:29) WHEEZING Interview Person Interviewed: spouse Quality Quality of Interview/Accuracy of Medication List: Good Sources Sources used to compile medication list: [facility] Medication List, Patient List and [email or web address] Changes made to Home Medication List: ADDITIONS: none DELETIONS: * benzonatate * cholecalciferol * Guaifenesin/Dextromethorphan * hydralazine * insulin glargine * insulin aspart * Duoneb CHANGES: * Aranesp changed to Q2W, last dose this past week * carvedilol increased to 12.5mg Additional Notes Additional Notes: Patient required BRAND name [employer] and the family will bring in to use as POM. Calcitriol in [employer] has a sig of QOD, but patient takes daily Recommended Changes Attestation: The home medication list is now updated to the best of my knowledge and is ready to be reconciled by the provider. Please contact the TelePharmacy Medication Reconciliation Pharmacist at for any questions.
[2025-05-04] MEDS: Vitamins B Comp w/C TAB 1 TAB PO (20:01)
[2025-05-04] MEDS: Carvedilol 6.25 MG TAB PO (20:01)
[2025-05-04] MEDS: Primidone 50 MG TAB 125 MG PO (20:01)
[2025-05-04] MEDS: Tacrolimus 0.5 MG CAP 1 MG PO (20:05)
[2025-05-04] MEDS: Mycophenolate Mofetil 250 MG CAP 500 MG PO (20:07)
[2025-05-05] MEDS: Heparin 5,000 UNITS/ML VIAL 5000 UNITS SC ×3 (03:43→20:19)
[2025-05-05] MEDS: Normal Saline 1,000 ML 100 ML IV (03:46)
[2025-05-05 06:33] LABS: Abs Immature Grans 0.01 10^3/uL (0.0-0.06); HCT 30.4 % (40.0-50.0); HGB 9.5 g/dL (13.5-17.5); Immature Grans % 0.2 %; MCH 32.3 pg (27.0-33.0); MCHC 31.3 % (32.0-36.0); MCV 103 fL (80-95); MPV 9.4 fL (8.0-11.0); Platelet Count 106 10^3/uL (130-400); RBC 2.94 10^6/uL (4.36-5.78); RDW 14.6 % (11.8-14.1); RDW-SD 54.6 fL; WBC 5.04 10^3/uL (4.4-10.8)
[2025-05-05 07:01] LABS: Anion Gap 12.5 mmol/L (3-11); CO2 17.5 mmol/L (21.0-32.0); Calcium 8.9 mg/dL (8.5-10.1); Chloride 108 mmol/L (98-107); Estimated GFR 10.88 (mL/min/1.73m2); Glucose 80 mg/dL (74-106); Potassium 5.6 mmol/L (3.5-5.1); Sodium 138 mmol/L (136-145)
[2025-05-05 07:17] LABS: BUN 105 mg/dL (7-18)
[2025-05-05 07:23] VITALS: BP 132/62; PULSE 74; RESP 18; TEMP 36.5; O2SAT 99
[2025-05-05] MEDS: Folic Acid 1 MG TAB PO (08:54)
[2025-05-05] MEDS: Cholecalciferol (Vitamin D3) 1,000 UNIT TAB 2000 UNITS PO (08:54)
[2025-05-05] MEDS: Mycophenolate Mofetil 250 MG CAP 500 MG PO ×2 (08:54→20:15)
[2025-05-05] MEDS: Calcitriol 0.25 MCG CAP 0.5 MCG PO (08:54)
[2025-05-05] MEDS: Vitamins B Comp w/C TAB 1 TAB PO ×2 (08:54→20:16)
[2025-05-05] MEDS: Cyanocobalamin 500 MCG TAB 1000 MCG PO (08:55)
[2025-05-05] MEDS: Carvedilol 6.25 MG TAB PO ×2 (08:56→20:16)
[2025-05-05] MEDS: Colestipol 1 GM TAB PO (08:56)
[2025-05-05] MEDS: Atorvastatin 20 MG TAB PO (08:57)
[2025-05-05] MEDS: Tacrolimus 0.5 MG CAP 1 MG PO ×2 (08:57→20:15)
[2025-05-05] MEDS: Multivitamin TAB 1 TAB PO (08:58)
[2025-05-05] MEDS: Montelukast 10 MG TAB PO (08:58)
[2025-05-05] MEDS: amLODIPine 10 MG TAB PO (08:58)
[2025-05-05] MEDS: Aspirin E.C. 81 MG TABEC PO (08:58)
[2025-05-05] MEDS: Triamcinolone 0.1% CR 15 GM TUBE TP (09:05)
[2025-05-05] MEDS: Fluticasone NASAL SPRAY 16 GM BTL NS (09:05)
--- NOTE | 2025-05-05 09:59 | PDOC.CMIN ---
Date of service: 05/05/25 Time of Service: 10:01 Care Management Initial Assmt Initial Assessment Reason for Hospitalization: diarrhea, dehydration Functional Status/Living Situation Patient Presentation: Reuben was lying in bed when CM met with him. He was visiting with his , Linda. His nurse was in the room, and he asked about getting a trapeze; his nurse brought one in for him during the conversation. He discussed his functioning at home, which is fairly independent at baseline, although he has been weak recently due to not feeling well. A PT consult was requested and placed today; he will likely be evaluated tomorrow. His helps to care for him at home, and stated that she is his POA; she stated that she will bring in documents related to this tomorrow. Reuben stated that he has an electric w/c which needs repair (although it is working currently); CM suggested that he reach out to his PCP or the dimension warehouse supervisor to coordinate this repair. Per report, a liver mass was detected on imaging in the ED, which will likely be worked up out patient. CM will continue to follow. Town of Residence: [place] Resides with: Spouse (, Linda) Caregiver/Guardian: niece, Jeremie, listed as [facility] Natural Supports: , Linda Employment Status: Disabled (d/t bilateral BKAs) Instrumental Activities of Daily Living (ADLs): Independent Medications Medication Management: No Issues/Barriers identified Physical Functioning/Mobility Assistive Device: bilateral prostheses, power w/c, 4WW, FWW, walking sticks Advance Directives Advance Directives: Do you have an Advance Directive: Y 04/06/24, 11:24 AD On File at [facility]: Y 04/06/24, 11:24 Date Asked 07/20/16 08/26/24, 04:56 AD Date Reviewed 05/04/25 Today, 07:18 COLST On File at [facility] COLST Date Scanned Code Status Resuscitation Status Full Code Insurance Coverage/Financial Issues Insurance: [facility] Financial assistance 100% Care Team Visit Care Team Role Provider Type Brittany Egan APRN MD [facility] STAFF PHYSICIAN Violetta Sanford MD Primary Care Provider [facility] STAFF PHYSICIAN Dana Alva RDN, [facility] Other Providers [employer] Lamont Mary RDN Other Providers [employer] T[employer] Rayo Su MD Emergency Provider [facility] STAFF PHYSICIAN Jay Jay Lovett MD Admit Provider [facility] STAFF PHYSICIAN Attending Provider Discharge Potential Discharge Needs: PCP F/U Appt Anticipated Barriers to Discharge: None Identified Patient/Family Education Needs: Review discharge instructions, discuss Ask Me Three Transportation: Private vehicle Plan: Anticipate Reuben will return home once medically cleared. He may benefit from HH PT, OT, if indicated. He will be driven home via private vehicle by family. He will follow up with his PCP and discharge plan of care. CM will continue to follow. Social Determinants of Health Screening Will the Patient Participate in the Screening?: Declined to provide Do you worry about having a steady place to live?: no PFSH All Active Problems (Updated 12/17/23 @ 00:01 by LYLA LUNA) Abnormal chest xray (Acute) Abnormal computed tomography of abdomen and pelvis (Acute) Diarrhea (Acute) Liver mass (Acute) Enlarged prostate (Acute) Cyst of left kidney (Acute) Thrombocytopenia (Chronic) Leukopenia (Acute) Hypomagnesemia (Acute) Hypoalbuminemia (Acute) CKD (chronic kidney disease) (Chronic) History of pneumonia (Acute) Cough (Acute) Pneumonia (Acute) Anemia (Chronic) CAP (community acquired pneumonia) (Acute) Basal cell carcinoma (Acute) Delayed wound healing (Acute ~2019) burn left arm happened 2019 fistula near wound Abnormal electrocardiogram (Acute) Phantom pain (Acute) Tremor (Acute) per pCP treated with primidone RH HTN (hypertension) (Chronic) Diabetes mellitus (Acute) Edentulous (Acute) Esophageal foreign body (Acute) Food impaction of esophagus (Acute) Macrocytic anemia (Acute) Gastroparesis diabeticorum (Acute) Kidney transplant recipient (Acute) Chronic kidney disease (Chronic) Hypertension (Chronic) Hyperlipidemia (Chronic) CAD (coronary artery disease) (Chronic) GERD (gastroesophageal reflux disease) (Chronic) Asthma (Chronic) Chronic anxiety (Chronic) Chronic depression (Chronic) Intention tremor (Chronic) Status post appendectomy (Acute) Physical medicine and rehabilitation procedures (Acute 06/27/13) Dysphagia (Acute) Hyperkalemia (Acute) CHF (congestive heart failure) (Acute) Diastolic CHF (Acute) Acute kidney injury superimposed on chronic kidney disease (Acute) Uncontrolled insulin dependent diabetes mellitus (Acute) Ambulatory dysfunction (Acute) Wenckebach second degree AV block (Acute) Fluid level behind tympanic membrane of left ear (Acute) Sensory hearing loss, bilateral (Acute) Tinnitus, bilateral (Acute) Osteoma of ear canal (Acute) Atrial fibrillation (Chronic) per pcp Pt had one episode 11/10 RH Kidney transplant recipient (Chronic) 2005 Medical History Left lower lobe pneumonia Sepsis CAP (community acquired pneumonia) Infection of amputation stump of right lower extremity Tubular adenoma of colon (02/01/17) Abscess of axilla (05/11/13) Personal history of allergy to other antibiotic agent Vitamin B 12 deficiency Adenomatous colon polyp History of colon polyps Lumbar back pain Erectile dysfunction Anxiety and depression Hydrocele Intention tremor Tricuspid insufficiency Obesity Stage 3 severe COPD by GOLD classification Hyperlipidemia Sciatica GERD (gastroesophageal reflux disease) MELISSA (obstructive sleep apnea) per PCP not using CPAP 01/20/23 RH Surgical History Status post bilateral below knee amputation History of bilateral cataract extraction 1999 H/O sinus surgery 2010 History of cardiac catheterization 2005 History of appendectomy 2012 History of colonoscopy (~10/2020) History of below-knee amputation of both lower extremities 2000 and 2010 Hx of amputation below knee Kidney transplant recipient 01/08/2014 EGD - MAC (04/02/16) Colonoscopy - MAC (02/01/17) Family History Father , cancer at 64 No problems noted. Brother , SM Cell Cancer No problems noted. Sister Breast cancer Mother No problems noted. Social History Smoking/Tobacco Use Status: Former Tobacco Use Quit Date: 07/25/90 Tobacco: How many years used: 15 Smoking risk assessment performed?: Yes Alcohol Intake: never Drug use: Never Substance use type: does not use Household members: spouse Housing: house What is your relationship status?: Panel score (0-1 are the most socially isolated patients): 1 Do you feel safe at home: Yes Do you feel safe in your relationship?: Yes
--- NOTE | 2025-05-05 10:13 | PGE_ITS ---
Date of Service Date of service: 05/05/25 Time of Service: 10:14 Assessment and Plan Assessment and plan (1) Acute kidney injury superimposed on chronic kidney disease: Status: Acute Assessment and plan: In the setting of ongoing GI losses from diarrhea starting 3 weeks prior Ongoing gentle IV hydration Patient with history of kidney transplant and chronic kidney disease Continue to avoid nephrotoxic drugs: Chlortalidone held Closely monitor hydration status with strict I&O Serial BMP and electrolytes Imaging shows no evidence of hydronephrosis on transplant kidney in the left renal pelvis Enlarged prostate gland (2) Abnormal computed tomography of abdomen and pelvis: Status: Acute Assessment and plan: 05/04/2025 CT abd and pelvis WO impressions: after preliminary VRAD review 1. New solid 3.7 x 3.5 cm mass in the superior pole of the right [place] kidney suspicious for primary renal carcinoma. This may be further evaluated with a MRI of the abdomen. 2. At least 3 hepatic masses suspicious for metastatic disease. Hepatic MRI may be obtained for further characterization -13.4 AP by 11.3 transverse by 11.7 craniocaudad cm hypodense mass occupying the right lobe of the liver. -1.8 x 2.1 cm hypodense mass in the left lobe of the liver. -9 mm lesion in the caudal aspect of the right lobe of the liver. 3. Small amount of abdominal pelvic ascites. 4. Bilateral [place] renal atrophy. 5. Enlarged prostate gland. 6. Reticular nodular infiltrate seen in the right middle lobe and left lower lobe. While infectious or inflammatory small vessel process should be considered, metastatic disease should also be considered. No fever, leukocytosis , hypotension to point out to symptomatic infection also mentioned atherosclerosis at the origin of both renal arteries causing with significant renal artery stenosis [facility] nephrology consult initiated - Nephrology questioning bilat renal artery stenosis on CT and deferred to Urology [facility] Urology consult pending Palliative care consult ordered (3) Diarrhea: Status: Acute Assessment and plan: C. difficile negative Stool for bacterial pathogens, lactoferrin, occult blood pending Ongoing IV hydration Electrolyte trending and replacement as needed (4) Hyperkalemia: Status: Acute Assessment and plan: In the setting of acute kidney injury Low potassium/renal diabetic diet No dynamic EKG changes Was given calcium gluconate in the emergency department Follow potassium closely S[place]m zirconium X1 - labs in PM (5) Hypomagnesemia: Status: Acute Assessment and plan: In the setting of GI losses Received 2 g of IV magnesium now resolved Magnesium leve in AM (6) Liver mass: Status: Acute Assessment and plan: Will need MRI to further characterize, can be done outpatient if unavailable small amount of perihepatic and perisplenic ascites, small amount of pelvic ascites, no free air . Outpatient Dx testing and above findings discussed with patient and spouse - RN present in room at the time to palliate to furhter need to clarify informatio (7) Diabetes mellitus: Status: Acute Assessment and plan: On diabetic diet- renal low KCl modification added Ongoing fingersticks AC and HS with sliding scale coverage AC Hemoglobin A1C 6.9- seemed to be controlled at home will hold basal insulin for now, adjust as needed. (8) Kidney transplant recipient: Status: Chronic Assessment and plan: Continue home medications, mycophenolate and tacrolimus Tacrolimus level sent and still pending (9) COPD (chronic obstructive pulmonary disease): Status: None Assessment and plan: No evidence of exacerbation continue home medicine regimen (10) LEFT FOREARM AV FISTULA: Status: None Assessment and plan: Not currently on dialysis. Positive T/ B DVT prophylaxis on heparin SC - suspicions of neoplastic process JULIANA score [address] to [address] Lovett Subjective Subjective Patient reports: pain is less, tolerating liquids well, tolerating a regular diet, voiding w/o difficulty, flatus, bowel movement, diarrhea and nausea; denies feels better, blood in stool, vomiting, shortness of breath or fever Exam Narrative Exam Narrative: Chronically ill-appearing male older than stated age, fatigued eyes nonicteric noninjected, alert and oriented X4, oral mucosa is slightly dry skin is pale warm and dry cardiovascular irregular rate and rhythm, respirations even and unlabored, clear lungs bilaterally to auscultation, abdomen non-distended , soft and non-tender, moves all extremities equally , bilateral BKA and uses prosthesis RASS 0 congruent mood and affect Objective Last Vital Signs Temp 36.5 C 05/05/25 07:23 Pulse 74 05/05/25 07:23 Resp 18 05/05/25 07:23 BP 132/62 05/05/25 07:23 Pulse Ox 99 05/05/25 07:23 Laboratory Results - last 24 hr 05/04/25 05/04/25 05/04/25 12:39 12:45 12:59 WBC 4.13 L RBC 2.83 L Hgb 8.9 L Hct 29.2 L MCV 103 H MCH 31.4 MCHC 30.5 L RDW 14.3 H Plt Count 96 L MPV 9.2 Reticulocyte % (Auto) 3.3 H Immature Gran % 0.2 Neutrophils % 46.4 Lymphocytes % 42.9 Monocytes % 8.5 Eosinophils % 1.5 Basophils % 0.5 Nucleated RBC % 0.0 Absolute Neutrophils 1.92 Absolute Lymphocytes 1.77 Absolute Monocytes 0.35 Absolute Eosinophils 0.06 Absolute Basophils 0.02 RBC Morphology Normal Sodium 138 Potassium 5.6 H Chloride 107 Carbon Dioxide 20.3 L Anion Gap 10.7 BUN 112 H* Creatinine 5.4 H* Est GFR (CKD-EPI 2020) 10.63 Glucose 121 H Hemoglobin A1c 6.9 H Calcium 8.9 Magnesium Cancelled 1.5 L Iron 78 TIBC 63 L Transferrin % Sat 124 H Ferritin 1499 H Total Bilirubin 0.4 AST 22 ALT 17 Alkaline Phosphatase 335 H Total Protein 6.5 Albumin 2.0 L Lipase Cancelled 13 Vitamin B12 > 2000 H Folate > 20.0 H TSH 6.67 H Free T4 Urine Color Urine Clarity Urine pH Ur Specific [place] Urine Protein Urine Ketones Urine Blood Urine Nitrite Urine Bilirubin Urine Urobilinogen Ur Leukocyte Esterase Urine RBC Urine WBC Ur Epithelial Cells Urine Crystals Urine Bacteria Urine Casts Urine Mucus Ur Culture Indicated? Ur Random Creatinine U Random Total Protein Urine Glucose COVID-19 Source Nasopharynx SARS-CoV-2 (PCR) Negative Influenza Type A (PCR) Negative Influenza Type B (PCR) Negative RSV (PCR) Negative Add-On Test Request 05/04/25 05/04/25 05/05/25 12:59 14:54 06:21 WBC 5.04 RBC 2.94 L Hgb 9.5 L Hct 30.4 L MCV 103 H MCH 32.3 MCHC 31.3 L RDW 14.6 H Plt Count 106 L MPV 9.4 Reticulocyte % (Auto) Immature Gran % 0.2 Neutrophils % 47.6 Lymphocytes % 41.3 Monocytes % 8.7 Eosinophils % 1.8 Basophils % 0.4 Nucleated RBC % 0.0 Absolute Neutrophils 2.40 Absolute Lymphocytes 2.08 Absolute Monocytes 0.44 Absolute Eosinophils 0.09 Absolute Basophils 0.02 RBC Morphology Sodium 138 Potassium 5.6 H Chloride 108 H Carbon Dioxide 17.5 L Anion Gap 12.5 H BUN 105 H* Creatinine 5.3 H* Est GFR (CKD-EPI 2020) 10.88 Glucose 80 Hemoglobin A1c Calcium 8.9 Magnesium Iron TIBC Transferrin % Sat Ferritin Total Bilirubin AST ALT Alkaline Phosphatase Total Protein Albumin Lipase Vitamin B12 Folate TSH Cancelled Free T4 0.92 Urine Color Yellow Urine Clarity Clear Urine pH 5.0 Ur Specific [place] 1.015 Urine Protein >=300 H Urine Ketones Negative Urine Blood Small H Urine Nitrite Negative Urine Bilirubin Negative Urine Urobilinogen 0.2 Ur Leukocyte Esterase Negative Urine RBC 3-5 H Urine WBC 0-2 Ur Epithelial Cells Rare Urine Crystals Negative Urine Bacteria Rare Urine Casts 0-2 Hyaline Urine Mucus Negative Ur Culture Indicated? No Ur Random Creatinine 25.00 U Random Total Protein 160.9 H Urine Glucose 100 H COVID-19 Source SARS-CoV-2 (PCR) Influenza Type A (PCR) Influenza Type B (PCR) RSV (PCR) Add-On Test Request DONE Time Spent with Patient Time Spent with Patient: >50 minutes Time was spent: preparing to see the patient(eg.review tests), obtaining and/or reviewing separately otained hiistory, ordering medications,tests, procedures, referring, communicating with other health child care development specialist, indepentently interpreting results, counseling the patient, care coordination and other
[2025-05-05] MEDS: Sodium Zirconium Cyclosilicate 10 GM PKT PO (10:38)
[2025-05-05 10:43] LABS: Magnesium 1.9 mg/dL (1.8-2.4)
[2025-05-05 11:40] LABS: EPI 027-NAP1-B1 PRESUMPTIVE NEGATIVE
[2025-05-05] MEDS: Insulin Aspart 300 UNITS/3 ML PEN SC ×2 (11:51→17:12)
[2025-05-05] MEDS: Lactated Ringers 1,000 ML 100 ML IV ×2 (14:29→23:33)
[2025-05-05 19:13] LABS: Anion Gap 14.9 mmol/L (3-11); CO2 16.1 mmol/L (21.0-32.0); Calcium 9.1 mg/dL (8.5-10.1); Chloride 107 mmol/L (98-107); Estimated GFR 10.63 (mL/min/1.73m2); Glucose 207 mg/dL (74-106); Potassium 5.3 mmol/L (3.5-5.1); Sodium 138 mmol/L (136-145)
[2025-05-05 19:18] LABS: BUN 108 mg/dL (7-18)
[2025-05-05 20:12] VITALS: BP 133/53; PULSE 74; RESP 15; TEMP 36.6; O2SAT 100
[2025-05-05] MEDS: Primidone 50 MG TAB 125 MG PO (20:15)
[2025-05-05] MEDS: Primidone 250 MG TAB PO (20:16)
[2025-05-05 23:52] LABS: Campylobacter PCR Negative (Negative); Shiga Toxin PCR Negative (Negative); Shigella/Enteroinvasive Ecoli Negative (Negative)
[2025-05-06] MEDS: Acetaminophen 325 MG TAB 650 MG PO (00:28)
[2025-05-06] MEDS: Heparin 5,000 UNITS/ML VIAL 5000 UNITS SC ×3 (04:16→20:16)
[2025-05-06 06:45] LABS: Abs Immature Grans 0.01 10^3/uL (0.0-0.06); HCT 30.0 % (40.0-50.0); HGB 9.3 g/dL (13.5-17.5); Immature Grans % 0.2 %; MCH 32.2 pg (27.0-33.0); MCHC 31.0 % (32.0-36.0); MCV 104 fL (80-95); MPV 9.6 fL (8.0-11.0); Platelet Count 100 10^3/uL (130-400); RBC 2.89 10^6/uL (4.36-5.78); RDW 14.5 % (11.8-14.1); RDW-SD 54.9 fL; WBC 4.63 10^3/uL (4.4-10.8)
[2025-05-06 07:08] LABS: Anion Gap 15.8 mmol/L (3-11); CO2 15.2 mmol/L (21.0-32.0); Calcium 9.0 mg/dL (8.5-10.1); Chloride 108 mmol/L (98-107); Estimated GFR 10.88 (mL/min/1.73m2); Glucose 144 mg/dL (74-106); Magnesium 1.8 mg/dL (1.8-2.4); Potassium 5.0 mmol/L (3.5-5.1); Sodium 139 mmol/L (136-145)
[2025-05-06 07:10] LABS: BUN 100 mg/dL (7-18)
--- NOTE | 2025-05-06 07:51 | W.PM.PROGNOT ---
Date of Service Date of service: 05/06/25 Time of Service: 07:51 Assessment and Plan Assessment and plan (1) Acute kidney injury superimposed on chronic kidney disease: Status: Acute Assessment and plan: Patient with history of kidney transplant and chronic kidney disease Recurrent presentation with Cr as high as 6.8 - 6.9 over the past 10 months; see nephrology at [facility] Dr. Stack but unable to clarify tank terminal gauger plan when discussed , not know previous or next f/u dates Cr remains at 5.3- BUN 100 today again from 5.4/112 on 05/04/25- seems that Cr baseline was 4.8-4.9in 02/2025 In the setting of ongoing GI losses from diarrhea starting 3 weeks prior - improving today Stool pathogen neative including C-diff Imodium PRN IV hydration stopped - encourage oral intake Ongoing avoidance of nephrotoxic drugs if possible VS renal dosage : Chlorthalidone held Closely monitor hydration status with strict I&O Serial BMP and electrolytes Imaging [facility] reports no evidence of hydronephrosis on transplant kidney in the left renal pelvis but [facility] radiology mentioned mild dilatation of the renal pelvis of the transplant Enlarged prostate gland- on flomax [facility] Urology consult: - 05/05/25 17:[address] Whiteside [facility] urology - Renal neoplasm most likely not the origin of liver or lung lesions, bilateral artery stenosis in [place] kidneys ( most likely calcifications) - not the transplant. MRI recommendation again for hepatic findings --outpatient work-up Post void residual minimal Recommended nephrology for HD decision but will defer as patient is not meeting HD requirement at this time - will wait for blood work and consult in AM if not improving. At this time hyperkalemia resolved s < telemetry d/c [facility] nephrology to clarify plan for f/u (2) Abnormal computed tomography of abdomen and pelvis: Status: Acute Assessment and plan: 05/04/2025 CT abd and pelvis WO impressions: after preliminary [facility] review 1. New solid 3.7 x 3.5 cm mass in the superior pole of the right [place] kidney suspicious for primary renal carcinoma. This may be further evaluated with a MRI of the abdomen. 2. At least 3 hepatic masses suspicious for metastatic disease. Hepatic MRI may be obtained for further characterization -13.4 AP by 11.3 transverse by 11.7 craniocaudad cm hypodense mass occupying the right lobe of the liver. -1.8 x 2.1 cm hypodense mass in the left lobe of the liver. -9 mm lesion in the caudal aspect of the right lobe of the liver. 3. Small amount of abdominal pelvic ascites. 4. Bilateral [place] renal atrophy. 5. Enlarged prostate gland. 6. Reticular nodular infiltrate seen in the right middle lobe and left lower lobe. While infectious or inflammatory small vessel process should be considered, metastatic disease should also be considered. No fever, leukocytosis , hypotension to point out to symptomatic infection also mentioned atherosclerosis at the origin of both renal arteries causing with significant renal artery stenosis but to [place] kidneys Palliative care consult completed Liver biopsy is required at this point and will yield more actionable data then MRI as per discussion with radiology at [facility] on 05/06- Outpatient referral to oncology as per PCP (3) Diarrhea: Status: Acute Assessment and plan: C. difficile negative Stool for bacterial pathogens, lactoferrin, occult blood pending Ongoing IV hydration Electrolyte trending and replacement as needed (4) Hyperkalemia: Status: Acute Assessment and plan: In the setting of acute kidney injury resolced s/p treatment Low potassium/renal diabetic diet No dynamic EKG changes Labs in AM (5) Hypomagnesemia: Status: Acute Assessment and plan: In the setting of GI losses suppelemented and resolved Magnesium leve in AM (6) Liver mass: Status: Acute Assessment and plan: Will need MRI to further characterize, can be done outpatient if unavailable small amount of perihepatic and perisplenic ascites, small amount of pelvic ascites, no free air, no symptoms of SBP On 05/05/25 : Outpatient Dx testing and above findings discussed with patient and spouse - RN present in room at the time to palliate to further need to clarify information ON 05/05 Palliative care consult - please read notes: Would like to pursue Dx and treatment for liver mass findings - will defer to PCP for oncology referral (7) Diabetes mellitus: Status: Acute Assessment and plan: Continue diabetic diet- renal low KCl modification added avoid FODMAPS Continue POC capillary blood glucose monitoring AC and HS with sliding scale coverage AC Hemoglobin A1C 6.9- seemed to be controlled at home requires minimal AC coverage -will continue hold basal insulin for now, adjust as needed when discharged and f/u asper PCP (8) Kidney transplant recipient: Status: Chronic Assessment and plan: Continue home medications, mycophenolate and tacrolimus, not on steroids Tacrolimus level 7.8 Read from [facility] radiologist: dilation of the renal pelvis of the transplant kidney on CT Renal US renal transplant - no hydronephrosis , right [place] kidney lesion is a cyst (9) COPD (chronic obstructive pulmonary disease): Status: None Assessment and plan: Stable and on home medicine regimen (10) Macrocytic anemia: Status: Acute Assessment and plan: Stable with stable thrombocytopenia Labs in AM (11) LEFT FOREARM AV FISTULA: Status: None Assessment and plan: Not currently on dialysis. Positive thrill and bruit DVT prophylaxis on heparin SC - suspicions of neoplastic process JULIANA score [address] to [address] Lovett Subjective Subjective Patient reports: no new complaints (but appears tired ), tolerating liquids well, tolerating a regular diet, voiding w/o difficulty, bowel movement and diarrhea (less frequent but would like it controlled when leaving and would like to stay ); denies still having pain, no bowel movement, nausea, vomiting, shortness of breath or fever Exam Narrative Exam Narrative: Chronically ill-appearing male older than stated age, less fatigued eyes nonicteric sclera, alert and oriented X4, moist oral mucosa ,skin is pale warm and dry, cardiovascular a-flutter w MVR on tele irregular rate and rhythm, respirations even and unlabored, clear lungs bilaterally to auscultation, abdomen non-distended , soft and non-tender, moves all extremities equally , bilateral BKA and uses prosthesis RASS 0 congruent mood and affect Objective Last Vital Signs Temp 36.6 C 05/05/25 20:12 Pulse 74 05/05/25 20:12 Resp 15 05/05/25 20:12 BP 133/53 L 05/05/25 20:12 Pulse Ox 100 05/05/25 20:12 Laboratory Results - last 24 hr 05/05/25 05/05/25 05/05/25 06:21 10:50 18:25 WBC RBC Hgb Hct MCV MCH MCHC RDW Plt Count MPV Immature Gran % Neutrophils % Lymphocytes % Monocytes % Eosinophils % Basophils % Nucleated RBC % Absolute Neutrophils Absolute Lymphocytes Absolute Monocytes Absolute Eosinophils Absolute Basophils Sodium 138 Potassium 5.3 H Chloride 107 Carbon Dioxide 16.1 L Anion Gap 14.9 H BUN 108 H* Creatinine 5.4 H* Est GFR (CKD-EPI 2020) 10.63 Glucose 207 H Calcium 9.1 Magnesium 1.9 Stl C.difficile Tox PCR Negative 05/06/25 06:35 WBC 4.63 RBC 2.89 L Hgb 9.3 L Hct 30.0 L MCV 104 H MCH 32.2 MCHC 31.0 L RDW 14.5 H Plt Count 100 L MPV 9.6 Immature Gran % 0.2 Neutrophils % 48.8 Lymphocytes % 38.9 Monocytes % 9.1 Eosinophils % 2.4 Basophils % 0.6 Nucleated RBC % 0.0 Absolute Neutrophils 2.26 Absolute Lymphocytes 1.80 Absolute Monocytes 0.42 Absolute Eosinophils 0.11 Absolute Basophils 0.03 Sodium 139 Potassium 5.0 Chloride 108 H Carbon Dioxide 15.2 L Anion Gap 15.8 H BUN 100 H* Creatinine 5.3 H* Est GFR (CKD-EPI 2020) 10.88 Glucose 144 H Calcium 9.0 Magnesium 1.8 Stl C.difficile Tox PCR Time Spent with Patient Time Spent with Patient: >50 minutes Time was spent: preparing to see the patient(eg.review tests), obtaining and/or reviewing separately otained hiistory, ordering medications,tests, procedures, referring, communicating with other health hospice spiritual care coordinator, indepentently interpreting results, counseling the patient, care coordination and other
[2025-05-06] MEDS: Triamcinolone 0.1% CR 15 GM TUBE TP (08:51)
[2025-05-06] MEDS: Colestipol 1 GM TAB PO (08:51)
[2025-05-06] MEDS: Fluticasone NASAL SPRAY 16 GM BTL NS (08:51)
[2025-05-06] MEDS: Folic Acid 1 MG TAB PO (08:52)
[2025-05-06] MEDS: Cholecalciferol (Vitamin D3) 1,000 UNIT TAB 2000 UNITS PO (08:52)
[2025-05-06] MEDS: Multivitamin TAB 1 TAB PO (08:52)
[2025-05-06] MEDS: Mycophenolate Mofetil 250 MG CAP 500 MG PO ×2 (08:52→20:17)
[2025-05-06] MEDS: Carvedilol 6.25 MG TAB PO ×2 (08:52→20:18)
[2025-05-06] MEDS: Atorvastatin 20 MG TAB PO (08:52)
[2025-05-06] MEDS: Tacrolimus 0.5 MG CAP 1 MG PO ×2 (08:52→20:17)
[2025-05-06] MEDS: Aspirin E.C. 81 MG TABEC PO (08:52)
[2025-05-06] MEDS: Calcitriol 0.25 MCG CAP 0.5 MCG PO (08:52)
[2025-05-06] MEDS: amLODIPine 10 MG TAB PO (08:53)
[2025-05-06] MEDS: Vitamins B Comp w/C TAB 1 TAB PO (08:53)
[2025-05-06] MEDS: Montelukast 10 MG TAB PO (08:53)
[2025-05-06] MEDS: Cyanocobalamin 500 MCG TAB 1000 MCG PO (08:53)
[2025-05-06 09:24] LABS: Lab Add On Test DONE
--- NOTE | 2025-05-06 09:37 | PT.INIE ---
PT Notes Visit Reasons: Diarrhea, Dehydration at ultrasound testing. Will re-check later today for PT evauation. still not back as of 10:15
--- NOTE | 2025-05-06 09:50 | DI.US_ITS ---
Exam(s) US RENAL EXAM: US RENAL CLINICAL HISTORY: ANSELMO left renal transplant: dilation renal pelvis. TECHNIQUE: Rodriguez scale imaging and color doppler were used. COMPARISON: US US RENAL from 07/22/[address] ABDOMEN PELVIS WO from 05/04/2025 FINDINGS: Right kidney: [place] right kidney is difficult to visualize and measures measures 6 x 4.1 x 3.5cm Echogenicity: Normal Hydronephrosis: No Cyst or mass: 3.2 centimeter cyst at the upper pole Nephrolithiasis: No Left transplant kidney located in the left iliac fossa.: 11.0 x 3.8 x 4.3cm the [place] left kidney was not visualized. Echogenicity: Normal Hydronephrosis: No stable appearance of prominent left renal pelvis and left ureter. Cyst or mass: No Nephrolithiasis: No Bladder:Normal. Prevoid vol:431 cc Postvoid vol:Not performed due to patient condition. Enlarged prostate with volume of 44 mL. IMPRESSION: Stable appearance of left renal transplant kidney. DATA REPOSITORY:
[2025-05-06] MEDS: Tamsulosin 0.4 MG CAPCR PO (10:27)
--- NOTE | 2025-05-06 11:32 | CMPROGNOTE_ITS ---
Date of service: 05/06/25 Time of Service: 17:11 Care Management Progress Note Progress Note Text Progress Note Text: Reuben was observed sitting upright in bed and sleeping when CM met with him. He was accompanied by Linda and two other family members. Per report, Linda stated she is Reuben?s Power of It Investment/Portfolio Manager and presented paperwork confirming she holds financial POA only. A consult with Palliative Care is to be ordered per current plan of care. [facility] today and clarified that the submitted POA documentation does not melissa authority for health care decision-making; See documentation. However, Reuben currently has a HCA's designated in his advance directives. Linda verbalized understanding of this process. Reuben underwent a renal ultrasound today. The family inquired about the results, and CM relayed this request to the RN. CM will continue to follow. Discharge Potential Discharge Needs: PCP F/U Appt Anticipated Barriers to Discharge: None Identified Patient/Family Education Needs: Review discharge instructions, discuss Ask Me Three Transportation: Private vehicle Plan: Anticipate Reuben will return home once medically cleared. He may benefit from PT, OT, if indicated. He will be driven home via private vehicle by family. He will follow up with his PCP, [facility] nephrology and discharge plan of care. CM will continue to follow. Social Determinants of Health Screening Will the Patient Participate in the Screening?: Declined to provide Do you worry about having a steady place to live?: no
[2025-05-06] MEDS: Insulin Aspart 300 UNITS/3 ML PEN SC ×2 (11:59→17:16)
--- NOTE | 2025-05-06 14:05 | PCNE_ITS ---
Date of service: 05/06/25 Time of Service: 13:30 History of Present Illness Narrative: Mr. Alexis is a 69 y/o M currently inpt 2/2 weakness c/b dehydration c/b diarrhea; PMHx sig for bilateral BKA, h/o renal transplant (2005), a fib, CHF, COPD, DM, HTN; present at bedside [facility] Course: presented to ED 05/04 w/CC weakness and diarrhea; ED work up consistent w/acute on chronic renal insufficiency, started on IVF and admitted inpatient for ongoing monitoring; CT revealed 3 liver masses recommend MRI f/u, R renal mass suspicious for RCC, gallstones, new lung nodules in RML, LLL, small abdominal pelvic ascites, enlarged prostate; consult w/ urology recommend HD decision reviewed, considering renal mass not origin of liver/lung lesions; need for biopsy of liver for confirmation Relevant recent history: diarrheal sxs x1 mo, was on home antidiarrheals which were working, however he does get consistent diarrhea, reports a/w probiotics and protein drinks, which he continues to use bc they keep telling him to drink them. he was Rx'd an alt antidiarrheal med by PCP most recently, unsure name and if has been receiving; he is continuing to have diarrheal sxs today, they resolved yesterday; however today he did have a protein drink bc they gave it to him and he thought he had to drink it Renal history: h/o renal transplant in 2005; f/b nephrology; h/o dialysis prior to transplant, has fistula in E; renal failure last year, thought may need HD then, however he recovered somewhat from that time; January was last visit, f/u next week; he is aware that dialysis is coming, he would want this in [facility] Resp: has a intermittent dry cough, aware of COPD dx; no O2 use ever. typically able to catch breath Social: lives in [place] w/ Linda; daughter Jeremie involved; has other children, does not want them included in decision making; Autonomy: was ind w/ADLs at baseline per chart review; need for f/u and review; he is dependent w/toileting at this time; uses electric WC in home ACP: does not want to be d/c'd today, does not feel at baseline, continues w/diarrheal sxs today. - previously completed AD, would want to update HCA form today; otherwise no changes Assessment and Plan Assessment and plan (1) Abnormal computed tomography of abdomen and pelvis: Status: Acute Assessment and plan: concern for liver masses, renal mass suspicious of neoplasm, RML/LLL lung nodules, small abd pelvic ascites, enlarged prostate, gallstones - recommendation for f/u MRI - need for biopsy for diagnostic clarification he would want to know if cancerous, recommend outpatient referral to hem/onc placed (2) Diarrhea: Status: Acute Assessment and plan: unresolved potentially r/t protein drinks/probiotics recommend hold and monitor culture neg, c diff neg (3) Liver mass: Status: Acute Assessment and plan: as above (4) Enlarged prostate: Status: Acute Assessment and plan: started tamsulosin (5) Cyst of left kidney: Status: Acute Assessment and plan: f/b nephrology, pending repeat consult f/u nephrology 05/18 (6) CKD (chronic kidney disease): Status: Chronic Assessment and plan: aware of HD progression, would want to pursue dialysis at this time (7) Kidney transplant recipient: Status: Acute (8) COPD (chronic obstructive pulmonary disease): Status: None Assessment and plan: need for review (9) CHF (congestive heart failure): Status: Acute Assessment and plan: need for review (10) Acute kidney injury superimposed on chronic kidney disease: Status: Acute Assessment and plan: continue IVF to maintain hydration, tanisha while ongoing diarrheal sxs (11) Atrial fibrillation: Status: Chronic (12) Palliative care encounter: Status: Acute Assessment and plan: PC to continue to follow Reuben, if remains inpatient Wed will f/u briefly; otherwise schedule outpatient f/u after next weeks appt, he would be appropriate for - PC to continue to review AD: limitations to treatment, LST if on ventilator/machines etc - review chronic conditions, options and preferences - updates w/nephrology, cardiology and oncology - as appropriate: eligibility for treatment for oncology and nephrology given his functional status and multiple chronic co-morbidities (13) ACP (advance care planning): Status: Acute Assessment and plan: reviewed existing AD and updated HCA form to be Linda and daughter Jeremie, no others reviewed hospital course, CT findings and concern for cancer dx; he would want to pursue work up for confirmatory diagnosis w/biopsy, preference for referral reviewed CKD and likelihood of HD starting sooner rather than later, he is prepared for requirements of this d/t his history, would want [facility] reviewed diarrheal sxs, to avoid triggers, continue meds for diarrheal control, maintaining hydration status; recommend protein drinks not be offered if he is maintaining nutrition via other pathways, as it appears he will drink it if provided to him bc he thinks he has to reviewed code status: FULL CODE; does not know if there are limitations to this at this time spent 45m w/ACP Review of Systems Narrative: as per HPI PFSH All Active Problems (Updated 12/17/23 @ 00:01 by LYLA LUNA) ACP (advance care planning) (Acute) Palliative care encounter (Acute) Abnormal chest xray (Acute) Abnormal computed tomography of abdomen and pelvis (Acute) Diarrhea (Acute) Liver mass (Acute) Enlarged prostate (Acute) Cyst of left kidney (Acute) Thrombocytopenia (Chronic) Leukopenia (Acute) Hypomagnesemia (Acute) Hypoalbuminemia (Acute) CKD (chronic kidney disease) (Chronic) History of pneumonia (Acute) Cough (Acute) Pneumonia (Acute) Anemia (Chronic) CAP (community acquired pneumonia) (Acute) Basal cell carcinoma (Acute) Delayed wound healing (Acute ~2019) burn left arm happened 2019 fistula near wound Abnormal electrocardiogram (Acute) Phantom pain (Acute) Tremor (Acute) per pCP treated with primidone RH HTN (hypertension) (Chronic) Diabetes mellitus (Acute) Edentulous (Acute) Esophageal foreign body (Acute) Food impaction of esophagus (Acute) Macrocytic anemia (Acute) Gastroparesis diabeticorum (Acute) Kidney transplant recipient (Acute) Chronic kidney disease (Chronic) Hypertension (Chronic) Hyperlipidemia (Chronic) CAD (coronary artery disease) (Chronic) GERD (gastroesophageal reflux disease) (Chronic) Asthma (Chronic) Chronic anxiety (Chronic) Chronic depression (Chronic) Intention tremor (Chronic) Status post appendectomy (Acute) Physical medicine and rehabilitation procedures (Acute 06/27/13) Dysphagia (Acute) Hyperkalemia (Acute) CHF (congestive heart failure) (Acute) Diastolic CHF (Acute) Acute kidney injury superimposed on chronic kidney disease (Acute) Uncontrolled insulin dependent diabetes mellitus (Acute) Ambulatory dysfunction (Acute) Wenckebach second degree AV block (Acute) Fluid level behind tympanic membrane of left ear (Acute) Sensory hearing loss, bilateral (Acute) Tinnitus, bilateral (Acute) Osteoma of ear canal (Acute) Atrial fibrillation (Chronic) per pcp Pt had one episode 11/10 RH Kidney transplant recipient (Chronic) 2005 Medical History Left lower lobe pneumonia Sepsis CAP (community acquired pneumonia) Infection of amputation stump of right lower extremity Tubular adenoma of colon (02/01/17) Abscess of axilla (05/11/13) Personal history of allergy to other antibiotic agent Vitamin B 12 deficiency Adenomatous colon polyp History of colon polyps Lumbar back pain Erectile dysfunction Anxiety and depression Hydrocele Intention tremor Tricuspid insufficiency Obesity Stage 3 severe COPD by GOLD classification Hyperlipidemia Sciatica GERD (gastroesophageal reflux disease) MELISSA (obstructive sleep apnea) per PCP not using CPAP 01/20/23 RH Surgical History Status post bilateral below knee amputation History of bilateral cataract extraction 1999 H/O sinus surgery 2010 History of cardiac catheterization 2005 History of appendectomy 2012 History of colonoscopy (~10/2020) History of below-knee amputation of both lower extremities 2000 and 2010 Hx of amputation below knee Kidney transplant recipient 01/08/2014 EGD - MAC (04/02/16) Colonoscopy - MAC (02/01/17) Family History Father , cancer at 64 No problems noted. Brother , SM Cell Cancer No problems noted. Sister Breast cancer Mother No problems noted. Social History Smoking/Tobacco Use Status: Former Tobacco Use Quit Date: 07/25/90 Tobacco: How many years used: 15 Smoking risk assessment performed?: Yes Alcohol Intake: never Drug use: Never Substance use type: does not use Household members: spouse Housing: house What is your relationship status?: Panel score (0-1 are the most socially isolated patients): 1 Do you feel safe at home: Yes Do you feel safe in your relationship?: Yes Exam Narrative Exam Narrative: General: older adult, ill appearing, pale man, lying in hospital bed, eyes mostly closed, remains engaged HEENT: normocephalic, atraumatic, hearing grossly WNL Resp: resp even and unlabored, w/repositioning elevating HOB he has dry cough episode lasting 30s w/dyspnea, resolves w/in 30s Ext: bilateral BKA, prosthetics in room Psych: guarded, refuses to answer, MS WNL, affect blunted/fatigued; speech clear; mood congruent; thought process loose assocation, impoverished; insight/judgment limited Results Last Vital Signs Temp 97.9 F 05/05/25 20:12 Pulse 74 05/05/25 20:12 Resp 15 05/05/25 20:12 BP 133/53 L 05/05/25 20:12 Pulse Ox 100 05/05/25 20:12 Labs 05/06/25 06:35 05/06/25 06:35 Labs: Laboratory Results - last 24 hr 05/04/25 05/05/25 05/05/25 12:59 10:50 18:25 WBC RBC Hgb Hct MCV MCH MCHC RDW Plt Count MPV Immature Gran % Neutrophils % Lymphocytes % Monocytes % Eosinophils % Basophils % Nucleated RBC % Absolute Neutrophils Absolute Lymphocytes Absolute Monocytes Absolute Eosinophils Absolute Basophils Sodium 138 Potassium 5.3 H Chloride 107 Carbon Dioxide 16.1 L Anion Gap 14.9 H BUN 108 H* Creatinine 5.4 H* Est GFR (CKD-EPI 2020) 10.63 Glucose 207 H Calcium 9.1 Magnesium Stool Campylobacter PCR Negative Stool Salmonella PCR Negative Stool Shigella PCR Negative Tacrolimus 7.8 Shiga Toxin (PCR) Negative Add-On Test Request 05/06/25 05/06/25 06:35 07:53 WBC 4.63 RBC 2.89 L Hgb 9.3 L Hct 30.0 L MCV 104 H MCH 32.2 MCHC 31.0 L RDW 14.5 H Plt Count 100 L MPV 9.6 Immature Gran % 0.2 Neutrophils % 48.8 Lymphocytes % 38.9 Monocytes % 9.1 Eosinophils % 2.4 Basophils % 0.6 Nucleated RBC % 0.0 Absolute Neutrophils 2.26 Absolute Lymphocytes 1.80 Absolute Monocytes 0.42 Absolute Eosinophils 0.11 Absolute Basophils 0.03 Sodium 139 Potassium 5.0 Chloride 108 H Carbon Dioxide 15.2 L Anion Gap 15.8 H BUN 100 H* Creatinine 5.3 H* Est GFR (CKD-EPI 2020) 10.88 Glucose 144 H Calcium 9.0 Magnesium 1.8 Stool Campylobacter PCR Stool Salmonella PCR Stool Shigella PCR Tacrolimus Shiga Toxin (PCR) Add-On Test Request DONE Time Spent Time Spent with Patient Time Spent(min): 75
--- NOTE | 2025-05-06 14:45 | PT.INNT ---
PT Notes Visit Reasons: Diarrhea, Dehydration Patient was not available during first attept at PT evalaution maria isabel was at ultrasound testing. Was with nursing staff for pericare after bowel movement during second attempt. [employer] Savanna also waiting to do palliative consult for patient. Will check later today or tomorrow morning for PT evalaution, as ordered.
[2025-05-06] MEDS: Loperamide 2 MG CAP PO (15:30)
--- NOTE | 2025-05-06 15:58 | NT_ITS ---
PT Notes Visit Reasons: Diarrhea, Dehydration Patient was seen for a third attempt at evaluation per Nurse Stevens's request, stating that patient was ready for PT. Patient was still with [employer] Brittany who was discussing with patient and plans for continued medical intervention.
[2025-05-06] MEDS: Ondansetron O.D.T. 4 MG TABEF PO (17:16)
[2025-05-06 19:21] VITALS: BP 129/56; PULSE 91; RESP 18; TEMP 36.7; O2SAT 98
[2025-05-06] MEDS: Primidone 50 MG TAB 125 MG PO (20:17)
[2025-05-06] MEDS: Primidone 250 MG TAB PO (20:17)
[2025-05-06] MEDS: Melatonin 3 MG TAB 6 MG PO (20:19)
[2025-05-07] VITALS (9 sets, daily range): BP systolic 136–156; BP diastolic 52–73; PULSE 57–83; RESP 16–146; TEMP 36.2–36.5; O2SAT 95–100
[2025-05-07] MEDS: Acetaminophen 325 MG TAB 650 MG PO (02:29)
[2025-05-07] MEDS: traZODone 100 MG TAB PO (02:29)
[2025-05-07] MEDS: guaiFENesin/D-METHORPHAN HB 5 ML CUP 10 ML PO ×2 (02:39→20:56)
[2025-05-07] MEDS: Heparin 5,000 UNITS/ML VIAL 5000 UNITS SC ×2 (04:19→13:34)
[2025-05-07 06:55] LABS: Abs Immature Grans 0.01 10^3/uL (0.0-0.06); Immature Grans % 0.3 %; MPV 9.9 fL (8.0-11.0); RDW 14.6 % (11.8-14.1)
[2025-05-07 06:57] LABS: HCT 27.2 % (40.0-50.0); HGB 8.4 g/dL (13.5-17.5); MCH 32.4 pg (27.0-33.0); MCHC 30.9 % (32.0-36.0); MCV 105 fL (80-95); RBC 2.59 10^6/uL (4.36-5.78); RDW-SD 56.0 fL; WBC 3.69 10^3/uL (4.4-10.8)
[2025-05-07 07:42] LABS: Anisocytosis 1+; Hypochromasia 1+; Macrocytosis 1+; Platelet Count 88 10^3/uL (130-400)
[2025-05-07 07:52] LABS: Anion Gap 14.8 mmol/L (3-11); CO2 15.2 mmol/L (21.0-32.0); Calcium 9.1 mg/dL (8.5-10.1); Chloride 108 mmol/L (98-107); Estimated GFR 10.63 (mL/min/1.73m2); Glucose 151 mg/dL (74-106); Potassium 5.0 mmol/L (3.5-5.1); Sodium 138 mmol/L (136-145)
[2025-05-07 07:56] LABS: BUN 107 mg/dL (7-18)
--- NOTE | 2025-05-07 08:53 | IN_ITS ---
PT Notes Visit Reasons: Diarrhea, Dehydration Physical Therapy Inpatient Initial Evaluation Date: 05/07/2025 Referring Doctor: Brittany Egan NP PT Orders: PT CONSULT: Eval for Assistive Device. Fall SAfety Assessment. Safety Consult for D/C. Precautions: Fall. Standard. Activity as tolerated. Short B transtibila amputation. Patient Profile/Admitting Diagnosis: Patient with short B transtibial amputation and has been a knidney transplant recipient (2005) who presented to the Ed on 05/04/2025 due to new onset weakness and diarrhea. Patient was admitted for management of ANSELMO, C.Difficle infection,hypomagnesemia, liver mass, COPD, and L FA AV fistula. PMHX: All Active Problems (Updated 12/17/23 @ 00:01 by LYLA LUNA) Diarrhea (Acute) Liver mass (Acute) Enlarged prostate (Acute) Cyst of left kidney (Acute) Thrombocytopenia (Chronic) Leukopenia (Acute) Hypomagnesemia (Acute) Hypoalbuminemia (Acute) CKD (chronic kidney disease) (Chronic) History of pneumonia (Acute) Cough (Acute) Pneumonia (Acute) Anemia (Chronic) CAP (community acquired pneumonia) (Acute) Basal cell carcinoma (Acute) Delayed wound healing (Acute ~2019) burn left arm happened 2019 fistula near wound Abnormal electrocardiogram (Acute) Phantom pain (Acute) Tremor (Acute) per pCP treated with primidone RH HTN (hypertension) (Chronic) Diabetes mellitus (Acute) Edentulous (Acute) Esophageal foreign body (Acute) Food impaction of esophagus (Acute) Macrocytic anemia (Acute) Gastroparesis diabeticorum (Acute) Kidney transplant recipient (Acute) Chronic kidney disease (Chronic) Hypertension (Chronic) Hyperlipidemia (Chronic) CAD (coronary artery disease) (Chronic) GERD (gastroesophageal reflux disease) (Chronic) Asthma (Chronic) Chronic anxiety (Chronic) Chronic depression (Chronic) Intention tremor (Chronic) Status post appendectomy (Acute) Physical medicine and rehabilitation procedures (Acute 06/27/13) Dysphagia (Acute) Hyperkalemia (Acute) CHF (congestive heart failure) (Acute) Diastolic CHF (Acute) Acute kidney injury superimposed on chronic kidney disease (Acute) Uncontrolled insulin dependent diabetes mellitus (Acute) Ambulatory dysfunction (Acute) Wenckebach second degree AV block (Acute) Fluid level behind tympanic membrane of left ear (Acute) Sensory hearing loss, bilateral (Acute) Tinnitus, bilateral (Acute) Osteoma of ear canal (Acute) Atrial fibrillation (Chronic) per pcp Pt had one episode 11/10 RH Kidney transplant recipient (Chronic) 2005 Medical History Left lower lobe pneumonia Sepsis CAP (community acquired pneumonia) Infection of amputation stump of right lower extremity Tubular adenoma of colon (02/01/17) Abscess of axilla (05/11/13) Personal history of allergy to other antibiotic agent Vitamin B 12 deficiency Adenomatous colon polyp History of colon polyps Lumbar back pain Erectile dysfunction Anxiety and depression Hydrocele Intention tremor Tricuspid insufficiency Obesity Stage 3 severe COPD by GOLD classification Hyperlipidemia Sciatica GERD (gastroesophageal reflux disease) MELISSA (obstructive sleep apnea) per PCP not using CPAP 01/20/23 RH Surgical History Status post bilateral below knee amputation History of bilateral cataract extraction 1999 H/O sinus surgery 2010 History of cardiac catheterization 2005 History of appendectomy 2012 History of colonoscopy (~10/2020) History of below-knee amputation of both lower extremities 2000 and 2010 Hx of amputation below knee Kidney transplant recipient 01/08/2014EGD - MAC (04/02/16) Colonoscopy - MAC (02/01/17) Social History/Home Situation: Lives with in a private home with a ramp to enter. Main mobility indoors is a motorized wheelchair. B BKA for about 20 years now anfd has had 3 sets of prosthesis with the last one given just recently. Equipment Owned/DME: motorized wheelchair, walker, B BKA prosthesis Subjective: Fatigued but agreeable to get out of chair and try out some walking. Slow to move and very weak. Objective: General Observation: Resting in bed, appeared fatigued Mental Status: Alert and oriented as to person, place, time, and purpose. Able to pay attention, focus, and respond appropriately. Pain: Generalized pain Vital Signs: Closely monitored by nursing staff ROM: Right Upper Extremity: Shoulder Flexion allowed up to about 90 degrees. Shoulder abduction allowed up to about 80 degrees. Elbow flexion WFL. Wrist flexion WFL. Functional opening and closing of hand WFL. Left Upper Extremity: Shoulder Flexion allowed up to about 90 degrees. Shoulder abduction allowed up to about 80 degrees. Elbow flexion WFL. Wrist flexion WFL. Functional opening and closing of hand WFL. Right Lower Extremity: Hip flexion allowed up to 30 degrees. Hip abduction WFL. Knee flexion 90 degrees to 10 degrees. Knee extension -30 degrees. Left Lower Extremity: Hip flexion allowed up to 20 degrees. Hip abduction WFL. Knee flexion 90 degrees to 10 degrees. Knee extension -30 degrees. Strength: Right Upper Extremity: Shoulder flexors 3-/5. Shoulder abductors 3-/5. Elbow flexors 4-/5. Elbow extensors 4-/5. Scarfing Machine Operator weak but functional.. Left Upper Extremity: Shoulder flexors 3-/5. Shoulder abductors 3-/5. Elbow flexors 4-/5. Elbow extensors 4-/5. Scarfing Machine Operator weak but functional.. Right Lower Extremity: Hip flexors 2+/5. Hip abductors 2+/5. Knee flexors 3-/5. Knee extensors 3-/5. Left Lower Extremity: Hip flexors 2+/5. Hip abductors 2+/5. Knee flexors 3-/5. Knee extensors 3-/5. Bed Mobility/Transfers: Moderate verbal and tactile cueing provided for use of B hands as needed for support, movement sequence, AD management, and posture to reduce fall risk and minimize pain report Rolling moderate assist Supine to sit moderate assist with HOB at 30 degrees Sit to stand minimal assist of PT and contact guard assist of PHLEBOTOMIST SUPERVISOR/INSTRUCTOR Seda with FWW and B BKA prostheses Stand to sit minimal assist of PT and contact guard assist of PHLEBOTOMIST SUPERVISOR/INSTRUCTOR Seda with FWW and B BKA prostheses Bed to reclining chair minimal assist of PT and contact guard assist of PHLEBOTOMIST SUPERVISOR/INSTRUCTOR Seda with FWW and B BKA prostheses Gait: Completed 8-10 steps to transfer from the edge of bed to his bedside recliner using FWW and B BKA prostheses. Decreased trunk, hip, and knee extension. PT and PHLEBOTOMIST SUPERVISOR/INSTRUCTOR Seda provided minimal to contact guard assist during activity. Turning and backing up onto chair were both challenging with patient needing additional tactile cueing for safety. Balance: Static Sitting: Fair Dynamic Sitting: Poor Static Standing: Fair Dynamic Standing: Poor Special Tests: Mobility Limitations Standardized Measure [facility] AM-PAC 6 clicks Basic Mobility Inpatient Short Form: Raw Score: 14 CMS Score: 61% deficit Informed Consent/Education: Patient was instructed in purpose of PT consult and plan of care. Agreeable to proceed with established PT POC to achieve personal goals. Assessment: Patient demonstrated functional mobility decline needing moderate to maximal assistance with sitting up from supine to edge of bed as patient could not use B Uand trunk muscles efficiently to scoot to edge of bed. PT and NANCY Stack were assisting for safety during bed mobility, transfers, and ambulation. Patient has been a bilateral transtibial amputee for about 20 years now and has just received his replacement BKA prosthesis recently. New open area overlying the R lateral tibial plateau is noted which Nurse Glenn has been managing. Patient presents with clinical signs and symptoms consistent with current/admitting diagnoses that have resulted to mobility limitations, gait instability, generalized weakness, and overall ADL decline as demonstrated by the following impairment level findings: 1. Decreased strength to B UE/LE and trunk muscles 2. Impaired sitting/standing balance 3. Impaired activity tolerance 4. Limitation of joint range of motion in B shoulders, B hips and knees 5. Shortness of breath 6. Bilateral BKA Impairments are contributing to the following functional limitations: 1. Decline in bed mobility skills 2. Decline in transfer skills 3. Difficulty with ambulation without assistive device and physical assistance 4. Increased completion time for mobility ADL performance 5. Increased risk for falls 6. Difficulty with managing steps alone safely Patient is assessed as a 96921 moderate complexity based on the following: History: 69-year-old male with past medical history as indicated above Examination: Demonstrable impairment in strength, balance, and mobility level with underlying impairments and functional limitations as exhibited above as well as deficit score of 61% utilizing the [facility] Mobility Inpatient Short Form Presentation: Evolving Decision Makin moderate complexity Goals: Goals X1 week 1. Supine-Sit independent 2. Sit-Supine independent 3. Sit-Stand independent 4. Stand-Sit independent with FWW 5. Bed-Chair independent with FWW 6. Chair-Bed independent with FWW 7. Independent gait on level surface with use of FWW for at least 15 feet without report of pain nor dyspnea8. Independent with home exercise program 8. Good static and dynamic standing balance/tolerance Plan of Care/Treatment Plan: 1-2x/day, 7 days/week x 1 week. Plan of care has been reviewed with the SPORTS LAW[employer]ER providing the service under Physical Therapy direction. Initiate Physical Therapy intervention for pain management as needed, strengthening, bed mobility, transfers, gait, stairs, balance training, and use of assistive device. DISCHARGE RECOMMENDATIONS: PT TREATMENT CODE/TIME: 51194 x20 minutes for 1 unit, 27840 x 17 minutes for 1 unit (8:16-8:50). Thank you for the opportunity to participate in the care of this patient. Alda Walter PT, DPT, CLT [facility] [place], [place]
[2025-05-07] MEDS: Insulin Aspart 300 UNITS/3 ML PEN SC ×2 (08:56→17:16)
[2025-05-07] MEDS: Tamsulosin 0.4 MG CAPCR PO (08:59)
[2025-05-07] MEDS: Fluticasone NASAL SPRAY 16 GM BTL NS (08:59)
[2025-05-07] MEDS: Montelukast 10 MG TAB PO (09:00)
[2025-05-07] MEDS: Folic Acid 1 MG TAB PO (09:00)
[2025-05-07] MEDS: amLODIPine 10 MG TAB PO (09:00)
[2025-05-07] MEDS: Cyanocobalamin 500 MCG TAB 1000 MCG PO (09:00)
[2025-05-07] MEDS: Tacrolimus 0.5 MG CAP 1 MG PO ×2 (09:01→20:57)
[2025-05-07] MEDS: Atorvastatin 20 MG TAB PO (09:01)
[2025-05-07] MEDS: Carvedilol 6.25 MG TAB PO ×2 (09:01→20:59)
[2025-05-07] MEDS: Cholecalciferol (Vitamin D3) 1,000 UNIT TAB 2000 UNITS PO (09:01)
[2025-05-07] MEDS: Mycophenolate Mofetil 250 MG CAP 500 MG PO ×2 (09:02→20:56)
[2025-05-07] MEDS: Calcitriol 0.25 MCG CAP 0.5 MCG PO (09:02)
[2025-05-07] MEDS: Multivitamin TAB 1 TAB PO (09:02)
[2025-05-07] MEDS: Aspirin E.C. 81 MG TABEC PO (09:02)
[2025-05-07] MEDS: Triamcinolone 0.1% CR 15 GM TUBE TP (09:03)
[2025-05-07] MEDS: Colestipol 1 GM TAB PO (09:03)
--- NOTE | 2025-05-07 09:25 | W.PM.PROGNOT ---
Date of Service Date of service: 05/07/25 Time of Service: 09:25 Assessment and Plan Assessment and plan (1) Acute kidney injury superimposed on chronic kidney disease: Status: Acute Assessment and plan: Patient with history of kidney transplant and chronic kidney disease Recurrent presentation with Cr as high as 6.8 - 6.9 over the past 10 months; see nephrology at [facility] Dr. Stack but unable to clarify supervisor long goods plan when discussed , not know previous or next f/u dates Cr remains at 5.3- 5.5 BUN 100-107 no hyperkalemia no confusion In the setting of ongoing GI losses from diarrhea starting 3 weeks prior - improving today Stool pathogen and C-diff negative Continue PRN Imodium IV hydration over 48 hours now stopped - encourage oral intake - will give PRBC for symptomatic ACD ( orthostasis and vagal bradycardia with dry heaving) Ongoing avoidance of nephrotoxic drugs if possible VS renal dosage : Chlorthalidone held Closely monitor hydration status with strict I&O - echo IVC non-plethoric Serial BMP and electrolytes Imaging [facility] reports no evidence of hydronephrosis on transplant kidney in the left renal pelvis but [facility] radiology mentioned mild dilatation of the renal pelvis of the transplant Enlarged prostate gland- on flomax [facility] Urology consult: - 05/05/25 17:[address] Whiteside [facility] urology - Renal neoplasm most likely not the origin of liver or lung lesions, no need for emergent transfer [facility] nephrology consulted and [facility] has been planning for HD , spouse aware (2) Bradycardia: Start date: 05/07/25 Status: Acute Assessment and plan: Vasovagal in etiology as the patient was dry heaving w/o vomiting HR 20's captured on telemetry for > 9 sec, returned to normal spontaneously EKG troponin negative telemetry Echocardiogram w/o major finding when compare to prior on file at [facility] - no fluid overload, LVEF 50-54% Conclusion Normal left ventricular wall thickness and chamber size. Ejection fraction is 50 to 55%. There are no segmental wall motion abnormalities Normal right ventricular size and function Both atria are mildly enlarged Aortic valve is trileaflet and mildly sclerotic without stenosis or regurgitation Mitral annular calcification. Trace mitral regurgitation Estimated right ventricular systolic pressure is 35 mmHg consider IVF after PRBC for symptomatic ACD (3) Abnormal computed tomography of abdomen and pelvis: Status: Acute Assessment and plan: 05/04/2025 CT abd and pelvis WO impressions: after preliminary [facility] review 1. New solid 3.7 x 3.5 cm mass in the superior pole of the right [employer] kidney suspicious for primary renal carcinoma. This may be further evaluated with a MRI of the abdomen. 2. At least 3 hepatic masses suspicious for metastatic disease. Hepatic MRI may be obtained for further characterization -13.4 AP by 11.3 transverse by 11.7 craniocaudad cm hypodense mass occupying the right lobe of the liver. -1.8 x 2.1 cm hypodense mass in the left lobe of the liver. -9 mm lesion in the caudal aspect of the right lobe of the liver. 3. Small amount of abdominal pelvic ascites. 4. Bilateral [employer] renal atrophy. 5. Enlarged prostate gland. 6. Reticular nodular infiltrate seen in the right middle lobe and left lower lobe. While infectious or inflammatory small vessel process should be considered, metastatic disease should also be considered. No fever, leukocytosis , hypotension to point out to symptomatic infection also mentioned atherosclerosis at the origin of both renal arteries causing with significant renal artery stenosis but to [employer] kidneys ; on review of imaging did not this provider did not appreciated calcification to transplant kidney vascularity Palliative care consult completed : Read notes please Liver biopsy is required at this point and will yield more actionable data than a MRI as per discussion with radiology at [facility] on 05/06- Outpatient referral to oncology as per PCP (4) Diarrhea: Status: Resolved Assessment and plan: resolved C. difficile negative Stool for bacterial pathogens, lactoferrin, occult blood negative Ongoing IV hydration Electrolyte trending and replacement as needed Discuss with Dr. Patel: outpatient referral completed (5) Hyperkalemia: Status: Resolved Assessment and plan: resolved K 5.0 stable In the setting of acute kidney injury- remains in high normal today resolved s/p treatment Low potassium/renal diabetic diet No dynamic EKG changes Labs in AM (6) Hypomagnesemia: Status: Resolved Assessment and plan: resolved Mg stable In the setting of GI losses supplemented and resolved Magnesium level in AM (7) Nausea: Status: Acute Assessment and plan: Dry heaving w/o vomiting On compazine (8) Liver mass: Status: Acute Assessment and plan: Initially recommendation for MRI to further characterize, can be done outpatient if unavailable-- Biopsy also recommended by radiologist in later discussion small amount of perihepatic and perisplenic ascites, small amount of pelvic ascites, no free air, no symptoms of SBP or fever,or jaundice Outpatient Dx testing and above findings discussed with patient and spouse - RN present in room at the time to palliate to further need to clarify information on 05/05 Palliative care consult - please read notes: Would like to pursue Dx and treatment for liver mass findings - will defer to PCP for oncology referral (9) Diabetes mellitus: Status: Acute Assessment and plan: A1C 6.9 Within goal for elderly population Continue diabetic diet- renal low KCl modifications continue to avoid FODMAPS Ongoing POC capillary blood glucose monitoring AC and HS with sliding scale coverage AC requires minimal AC coverage -will continue hold basal insulin for now, adjust as needed when discharged and f/u as per PCP (10) Kidney transplant recipient: Status: Chronic Assessment and plan: Ongoing home medications, mycophenolate and tacrolimus, not on steroids Tacrolimus level 7.8 Read from [facility] radiologist: dilation of the renal pelvis of the transplant kidney on CT Renal US renal transplant - no hydronephrosis , right [employer] kidney lesion is a cyst- known failing transplant followed by [facility] nephrology (11) COPD (chronic obstructive pulmonary disease): Status: None Assessment and plan: on home medicine regimen (12) Macrocytic anemia: Status: Acute Assessment and plan: As per Iron studies and Hx - ACD drop in H&H over 1 point overnight , increased VR rate on telemetry, worsening fatigue Orhto VS Will proceed to give one unit of PRBC- leukocyte reduced, /CMV negative and irradiated - H&H in PM Stable with stable thrombocytopenia Labs in AM (13) LEFT FOREARM AV FISTULA: Status: None Assessment and plan: Not currently on dialysis. Positive thrill and bruit DVT prophylaxis was on heparin SC - suspicions of neoplastic process JULIANA score 4 to 20- but platelets to 88 - will hold followed at [facility] nephrology for HD initiation as per discussion with spouse - appointment w nephrology next week (14) Discharge planning issues: Status: Acute Assessment and plan: As per discussion with CM/UR- patient meeting criteria -symptomatic anemia - with EKG showing increased VR - significant drop in H&H overnight - not d/t IV dilution Discussed with Dr Warner Subjective Subjective Patient reports: no new complaints (ongoing fatigue), tolerating liquids well, tolerating a regular diet, voiding w/o difficulty, nausea and other (dizziness with HOB elevation changes); denies still having pain, no bowel movement, diarrhea (less frequent but would like it controlled when leaving and would like to stay ), blood in stool, vomiting, shortness of breath or fever Exam Narrative Exam Narrative: Chronically ill-appearing male older than stated age, less fatigued eyes nonicteric sclera, alert and oriented X4, moist oral mucosa ,skin is pale warm and dry, cardiovascular a-flutter w MVR- rate trending up, irregular rate and rhythm, respirations even and unlabored, clear lungs bilaterally to auscultation, abdomen non-distended , soft and non-tender, moves all extremities equally , bilateral BKA and uses prosthesis RASS 0 congruent mood and affect Objective Last Vital Signs Temp 36.2 C L 05/07/25 07:31 Pulse 81 05/07/25 07:31 Resp 17 05/07/25 07:31 BP 136/54 L 05/07/25 07:31 Pulse Ox 100 05/07/25 07:31 Laboratory Results - last 24 hr 05/06/25 05/07/25 06:35 06:13 WBC 3.69 L RBC 2.59 L Hgb 8.4 L Hct 27.2 L MCV 105 H MCH 32.4 MCHC 30.9 L RDW 14.6 H Plt Count 88 L MPV 9.9 Immature Gran % 0.3 Neutrophils % 51.2 Lymphocytes % 38.2 Monocytes % 8.4 Eosinophils % 1.6 Basophils % 0.3 Nucleated RBC % 0.0 Absolute Neutrophils 1.89 Absolute Lymphocytes 1.41 Absolute Monocytes 0.31 Absolute Eosinophils 0.06 Absolute Basophils 0.01 RBC Morphology See Below Hypochromasia 1+ Anisocytosis 1+ Macrocytosis 1+ Sodium 138 Potassium 5.0 Chloride 108 H Carbon Dioxide 15.2 L Anion Gap 14.8 H BUN 107 H* Creatinine 5.4 H* Est GFR (CKD-EPI 2020) 10.63 Glucose 151 H Calcium 9.1 Tumor Marker AFP <2.5 Time Spent with Patient Time Spent with Patient: >50 minutes Time was spent: preparing to see the patient(eg.review tests), obtaining and/or reviewing separately otained hiistory, ordering medications,tests, procedures, referring, communicating with other health respiratory care assistant, indepentently interpreting results, counseling the patient, care coordination and other
[2025-05-07 11:16] LABS: Lab Add On Test DONE
[2025-05-07 11:36] LABS: Magnesium 1.8 mg/dL (1.8-2.4)
[2025-05-07] MEDS: Ondansetron O.D.T. 4 MG TABEF PO (11:41)
--- NOTE | 2025-05-07 11:45 | RT.EKG_ITS ---
APPROVED REPORT Exam: Resting ECG Reason for Exam: bradycardia syncope Patient Location: I HR:68 bpm ECG Measurements Heart Rate 68 AXIS CO [id number] P [id number] QRSd 159 QRS -65 QT 471 T 67 QTc 502 Conclusion Atrial flutter with predominant 3:1 AV block...A-rate 217, multiple Ps RBBB and LAFB...QRSd >120mS, axis(-40,240)
[2025-05-07 12:51] LABS: ALT 14 U/L (16-63); AST 21 U/L (15-37); Albumin 1.7 g/dL (3.4-5.0); Alkaline Phosphatase 336 U/L (46-116); Anion Gap 15.3 mmol/L (3-11); Bilirubin, Total 0.4 mg/dL (0.2-1.0); CO2 15.7 mmol/L (21.0-32.0); Calcium 9.2 mg/dL (8.5-10.1); Chloride 107 mmol/L (98-107); Estimated GFR 10.40 (mL/min/1.73m2); Glucose 139 mg/dL (74-106); Potassium 5.0 mmol/L (3.5-5.1); Sodium 138 mmol/L (136-145); Total Protein 5.9 g/dL (6.4-8.2)
[2025-05-07 12:55] LABS: BUN 105 mg/dL (7-18)
--- NOTE | 2025-05-07 13:01 | CHAPLAIN ---
Reuben was sleeping when I visited. I spoke to his Linda and introduced myself, explained my role and offered support.
[2025-05-07 13:48] LABS: INR 1.4 (0.9-1.1); PTT Activated 33.6 sec (20.6-30.2); Prothrombin Time 13.7 sec (9.1-11.1)
--- NOTE | 2025-05-07 14:38 | DI.US_ITS ---
APPROVED REPORT EXAM: Comprehensive 2D, Doppler, and color-flow Echocardiogram Patient Location: In-Patient [employer] Professional: Shanti Pratt RDCS (AE) Indications: Syncope Other Information Study Quality: Fair. Technically limited study due to body habitus, inability to position patient exam done supine. Conclusion Normal left ventricular wall thickness and chamber size. Ejection fraction is 50 to 55%. There are no segmental wall motion abnormalities Normal right ventricular size and function Both atria are mildly enlarged Aortic valve is trileaflet and mildly sclerotic without stenosis or regurgitation Mitral annular calcification. Trace mitral regurgitation Estimated right ventricular systolic pressure is 35 mmHg Wall motion Left Ventricle The left ventricle is normal size. The overall left ventricular systolic function appears normal. There is normal left ventricular wall thickness. There is normal LV segmental wall motion. There is no ventricular septal defect visualized. LVEF is 50-54%. Right Ventricle The right ventricle is normal size. The right ventricular systolic function is normal. Atria Left atrium is mildly dilated. Right atrium is mildly dilated. The interatrial septum is intact with no evidence for an atrial septal defect. Aortic Valve The Aortic valve is mildly sclerotic. Aortic valve is trileaflet. No hemodynamically significant valvular aortic stenosis. No aortic regurgitation is present. Mitral Valve Moderate mitral annular calcification. No evidence of mitral valve stenosis. Trace mitral regurgitation. Tricuspid Valve The tricuspid valve is normal in structure. There is no tricuspid valve stenosis. Trace tricuspid regurgitation. The RVSP is 34.8_ mmHg. Pulmonic Valve The pulmonary valve is normal in structure. There is no pulmonic valvular stenosis. There is no pulmonic valvular regurgitation. Great Vessels The aortic root is normal in size. The ascending aorta is normal in size. Aortic arch is not well visualized. IVC is normal in size and collapses >50% with inspiration. Pericardium There is no pericardial effusion. 2D Dimensions IVSD d PLAX 1.22 cm M: 0.6-1.2 Ao Root d 3.35 cm M: 3.1 - 3.7 LVPW d PLAX 1.22 cm M: 0.6 - 1.2 Ao Asc Diam d 3.21 cm M: 2.6 - 3.4 LVID d PLAX 5.63 cm M: 4.2 - 5.8 LVDs 4.04 cm M: 2.5 - 4.0 LV EF Teichholz 53.8 % FS 28.18 % LV EDV (Teich) 155.3 mL LV ESV (Teich) 71.7 mL M-Mode TAPSE 1.59 cm (M/F) >1.7 Auto EF LV EDV A4C 147.1 mL LV EDV A2C 130.7 mL LV EDV BP 143.4 mL LV ESV A4C 73.9 mL LV ESV A2C 64.6 mL LV ESV BP 70.6 mL LVEF(%) A4C 49.8 % LVEF(%) A2C 50.6 % LVEF(%) BP 50.7 % LV SV A4C 73.2 ml LV SV A2C 66.1 ml LV SV BP 72.8 ml LV CO A4C 5.4 L/min LV CO A2C 5.1 L/min LV CO BP 5.2 L/min HR A4C 73.62 BPM HR A2C 76.43 BPM LV EDV Index (BP) LA Volume LA Length A4C 6.1 cm LA Length A2C 6.2 cm LA Area A4C s 27.37 cm2 LA Area A2C s 23.79 cm2 LA Vol A4C A-L 103.82 mL LA Vol A2C A-L 77.34 mL LA Vol Biplane A- L 90.2 mL LA Vol/BSA A4C A-L LA Vol/BSA A2C A-L LA Vol/BSA BP A-L 39.8 mL/m2 LA Vol A4C MOD 95.0 mL LA Vol A2C MOD 73.0 mL LA Vol BP MOD 83.6 mL RA Volume RA Area A4C 22.7 cm2 RA ESV A4C (A-L) 73.3mL RA Vol/BSA A4C A-L RA Length A4C 6.0 cm RA ESV A4C (MOD) 68.2mL LV Diastology MV E' medial 0.088 (>0.07 m/s) MV E Vmax 1.03 (0.4-1.3 m/s) MV E/E' MED 11.69 (<14) MV A Vmax 0.65 (0.4-1.3 m/s) MV E' lateral 0.118 (>0.1 m/s) E/A Ratio 1.6 MV E/E' LAT 8.69 (<14) MV E' Average 0.103 m/s MV E/E'(average) 9.97 Aortic Valve AoV Vmax 2.05 m/s LVOT Vmax 1.15 m/s AoV Peak Grad 16.8 mmHg LVOT Peak Grad 5.3 mmHg AoV Area (Vmax) 2.06 cm2 LVOT VTI 0.222 m AoV VTI 0.401 m LVOT Mean Grad 3.2 mmHg AoV Mean Poncho. 1.40 m/s LVOT SV 81.68 mL AoV Mean Grad 9.0 mmHg LVOT Diam s 2.15 cm AoV Area (VTI) 2.04 cm2 Velocity Ratio 0.56 Mitral Valve MV DT 240 (160-240 msec) MV Vmax TIPS 1.01 m/s MV Mean Grad 1.5 (<2mmHg) MV VTI 0.257 m Pulmonary Valve PV Vmax 1.15 (0.5-1.5 m/s) RVOT Vmax 0.98 m/s PV Peak Grad 5.3 mmHg RVOT Peak Gr. 3.9 mmHg PV Mean Poncho 0.76 m/s RVOT VTI 0.202 m PV Mean Grad 2.8 mmHg RVOT Mean Gr. 2.0 mmHg Tricuspid Valve RA Pressure 3.00 mmHg TR Vmax 2.82 m/s TV S' 0.10 m/s TR Peak Grad 31.7 mmHg RVSP (TR) 34.8 mmHg
--- NOTE | 2025-05-07 14:45 | PDOC.CMPRO ---
Date of service: 05/07/25 Time of Service: 14:45 Care Management Progress Note Progress Note Text Progress Note Text: CM met with Reuben while he was in bed; his was present during the visit. Per report, PT was unable to work with Reuben yesterday despite multiple attempts. Linda reports that PT did work with him this morning, although Reuben does not recall the session. Reuben reports improvement in his diarrhea today. Per provider, dialysis has been arranged, with the start date pending. He is scheduled to follow up with [facility]phrology next week. A trapeze has been installed in his room to support mobility, and Reuben expressed hope that he will be able to discharge home soon. Per report, Reubne is scheduled to receive a blood transfusion later today. CM will continue to follow. Discharge Potential Discharge Needs: PCP F/U Appt and Other Anticipated Barriers to Discharge: None Identified Patient/Family Education Needs: Review discharge instructions, discuss Ask Me Three Transportation: Private vehicle Plan: Anticipate Reuben will return home once medically cleared. He may benefit from HH PT, OT, if indicated. He will be driven home via private vehicle by family. He will follow up with his PCP, [facility] nephrology in the upcoming week, palliaitve care and discharge plan of care. CM will continue to follow. Social Determinants of Health Screening Will the Patient Participate in the Screening?: Declined to provide Do you worry about having a steady place to live?: no
[2025-05-07 14:48] LABS: Troponin I 34 ng/L (<or=76)
[2025-05-07] MEDS: Prochlorperazine 5 MG TAB PO ×2 (16:57→23:28)
[2025-05-07] MEDS: Mupirocin 2% 15 GM TUBE TP ×2 (16:57→21:10)
[2025-05-07] MEDS: Melatonin 3 MG TAB 6 MG PO (20:57)
[2025-05-07] MEDS: Primidone 50 MG TAB 125 MG PO (20:58)
[2025-05-07] MEDS: Primidone 250 MG TAB PO (20:58)
[2025-05-08] MEDS: Acetaminophen 325 MG TAB 650 MG PO (00:47)
[2025-05-08] MEDS: Loperamide 2 MG CAP PO (00:47)
[2025-05-08 07:40] VITALS: BP 164/63; PULSE 82; RESP 16; TEMP 36.6; O2SAT 100
[2025-05-08] MEDS: Calcitriol 0.25 MCG CAP 0.5 MCG PO (07:42)
[2025-05-08] MEDS: Colestipol 1 GM TAB PO (07:42)
[2025-05-08] MEDS: Prochlorperazine 5 MG TAB PO (07:43)
[2025-05-08] MEDS: Aspirin E.C. 81 MG TABEC PO (07:43)
[2025-05-08] MEDS: Carvedilol 6.25 MG TAB PO (07:44)
[2025-05-08] MEDS: Multivitamin TAB 1 TAB PO (07:44)
[2025-05-08] MEDS: Atorvastatin 20 MG TAB PO (07:45)
[2025-05-08] MEDS: Folic Acid 1 MG TAB PO (07:45)
[2025-05-08] MEDS: Montelukast 10 MG TAB PO (07:46)
[2025-05-08] MEDS: Tamsulosin 0.4 MG CAPCR PO (07:46)
[2025-05-08] MEDS: Cyanocobalamin 500 MCG TAB 1000 MCG PO (07:47)
[2025-05-08] MEDS: Mycophenolate Mofetil 250 MG CAP 500 MG PO (07:47)
[2025-05-08] MEDS: Cholecalciferol (Vitamin D3) 1,000 UNIT TAB 2000 UNITS PO (07:47)
[2025-05-08] MEDS: Tacrolimus 0.5 MG CAP 1 MG PO (07:47)
[2025-05-08] MEDS: Insulin Aspart 300 UNITS/3 ML PEN SC ×2 (07:48→12:39)
[2025-05-08] MEDS: Mupirocin 2% 15 GM TUBE TP (07:51)
[2025-05-08] MEDS: Triamcinolone 0.1% CR 15 GM TUBE TP (07:51)
[2025-05-08] MEDS: Fluticasone NASAL SPRAY 16 GM BTL NS (07:51)
[2025-05-08] MEDS: amLODIPine 10 MG TAB PO (07:53)
[2025-05-08 10:02] LABS: Abs Immature Grans 0.01 10^3/uL (0.0-0.06); HCT 29.2 % (40.0-50.0); HGB 9.1 g/dL (13.5-17.5); Immature Grans % 0.2 %; MCH 31.4 pg (27.0-33.0); MCHC 31.2 % (32.0-36.0); MCV 101 fL (80-95); MPV 9.3 fL (8.0-11.0); RBC 2.90 10^6/uL (4.36-5.78); RDW 16.1 % (11.8-14.1); RDW-SD 59.6 fL; WBC 4.23 10^3/uL (4.4-10.8)
[2025-05-08 10:14] LABS: Platelet Count 93 10^3/uL (130-400); RBC Morphology Normal
[2025-05-08 10:16] LABS: Anion Gap 16.0 mmol/L (3-11); CO2 14.0 mmol/L (21.0-32.0); Calcium 9.3 mg/dL (8.5-10.1); Chloride 107 mmol/L (98-107); Estimated GFR 10.63 (mL/min/1.73m2); Glucose 173 mg/dL (74-106); Potassium 4.8 mmol/L (3.5-5.1); Sodium 137 mmol/L (136-145)
[2025-05-08 10:20] LABS: BUN 101 mg/dL (7-18)
--- NOTE | 2025-05-08 11:26 | W.PM.DS.N ---
Date of service: 05/08/25 Time of Service: 11:26 DS: Diagnosis Discharge Diagnosis (1) Acute kidney injury superimposed on chronic kidney disease: Status: Acute (2) Bradycardia: Status: Acute (3) Abnormal computed tomography of abdomen and pelvis: Status: Acute (4) Diarrhea: Status: Resolved (5) Hyperkalemia: Status: Resolved (6) Hypomagnesemia: Status: Resolved (7) Nausea: Status: Acute (8) Liver mass: Status: Acute (9) Diabetes mellitus: Status: Acute (10) Kidney transplant recipient: Status: Chronic (11) COPD (chronic obstructive pulmonary disease): Status: None (12) Macrocytic anemia: Status: Acute (13) LEFT FOREARM AV FISTULA: Status: None (14) Discharge planning issues: Status: Acute Discharge Plan Disposition Patient Disposition: Home W/Home Health Services Condition: Improving Discharge Details Reason For Visit: Diarrhea, Dehydration Admit Date/Time: 05/04/25 14:55 Admit Provider: Jay Jay Lovett Attending Provider: Jay Jay Lovett Primary Care Provider: Violetta Sanford [facility] Course Hospital Course: Patient with past medical history significant for kidney transplant, atrial fibrillation, congestive heart failure, bilateral BKA, diabetes mellitus, COPD, hypertension presents to the emergency department for evaluation of weakness in the setting of acute diarrhea. His workup in the emergency department does show acute on chronic renal insufficiency. Potassium elevated at 5.6. Hemodynamically he was stable and afebrile. Did not meet sepsis criteria. The patient was admitted to the hopitlist service for IV hydration and further monitoring. His potassium was found to be elevated at 5.6 he was provided calcium gluconate in the emergency department. Magnesium 1.5, given 2 g of IV magnesium. He was also given a fluid bolus of 500 cc normal saline. Incidental findings of bilateral lung nodules, liver mass/ lesion X3 CT imaging of the abdomen and pelvis without contrast. Recommended follow-up with MRI when available but delayed to creatinine overing around 5.3-5.4 despite IV crystalloid infusion. Discussion with urology at [facility] Dr. Whiteside, renal carcinoma - most likely not a primary for liver lesions if they were found to be neoplastic, no clear hydropnephrosis on transplant and bilateral renal artery stenosis pertained to the [place] kidneys and not the transplant. Tumor marker AFP recommended and pending. C-diff and stool pathogens are negative. Patient reported follow-up in nephrology at [facility] with Dr. Suarez but was unable to discuss previous or next appointment or specific plan with ongoing worsening failure of renal transplant. Upon discussion with Dr Jo from [facility] nephrology, no recommendation for acute intervention or emergent transfer, the patient has seen Dr. Trujillo nephrology [employer] OFFICER in 01/2025 with f/u due for 04/2025. Renal US reported stable appearance of left renal transplant kidney, right renal cyst. The patient clinically improved and diarrhea frequency is reduced and is tolerating oral intake. 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 Palliative care to continue to follow outpatient. As per discussion with radiologist further imaging most likely not to yield more information but biopsy of the liver lesions is required. As per discussion with palliative care the patient would like a work-up for new findings on CT with the goal of obtaining oncology treatment if necessary. Brief vasovagal episode, approximately 6 seconds occurring with dry heaving with transient HR in the 20's with spontaneous resolution resulting in negative EKG and troponin work-up. Echocardiogram conclusion: Normal left ventricular wall thickness and chamber size. Ejection fraction is 50 to 55%. There are no segmental wall motion abnormalities Normal right ventricular size and function Both atria are mildly enlarged Aortic valve is trileaflet and mildly sclerotic without stenosis or regurgitation Mitral annular calcification. Trace mitral regurgitation Estimated right ventricular systolic pressure is 35 mmHg PRBC one unit transfused for Hgb 8.4 in the setting of symptomatic anemia of chronic disease with resolution of symptoms and stable Hgb. The patient is hemodynamically stable , afebrile and will be discharged home with home health services with follow-up with PCP within 7 days of discharge. Nephrology follow-up reported scheduled for next week. Discussed with Dr. Warner Recommendations for Follow Up Recommended tests to be ordered by follow up provider: Needs MRI liver, lungs VS biopsy and a referral to oncology, tumor marker AFP negative Home Meds and New Rx's Prescriptions: New tamsulosin 0.4 mg Capsule 0.4 mg PO DAILY Qty: 30 0RF loperamide [Anti-Diarrheal (loperamide)] 2 mg capsule 2 mg PO QID PRNQty: 30 0RF Rx Instructions: For loose stool prochlorperazine maleate 5 mg Tablet 5 mg PO Q8H Qty: 15 0RF Continued folic acid 1 mg tablet 1 mg PO DAILY mycophenolate mofetil [CellCept] 250 mg capsule 500 mg PO BID Patient Comments: BRAND calcitriol 0.25 mcg capsule 0.5 mcg PO DAILY acetaminophen 325 mg capsule 650 mg PO Q6H PRN amlodipine 10 mg tablet 10 mg PO DAILY atorvastatin 20 mg tablet 20 mg PO DAILY chlorthalidone 25 mg tablet 25 mg PO DAILY primidone 50 mg tablet 150 mg PO BID insulin glargine U-300 conc [Toujeo Max U-300 SoloStar] 300 unit/mL (3 mL) insulin pen 70 unit subcut DAILY Aranesp (in polysorbate) 200 mcg/mL solution 300 mcg SUBCUT .14 days Patient Comments: in clinic- 04/30/25 mecobalamin (vitamin B12) 1,000 mcg tablet,chewable 1,000 mcg PO DAILY carvedilol 6.25 mg tablet 12.5 mg PO BID Rx Instructions: must administer with a meal/food mupirocin calcium 2 % cream 1 applic topical TID Qty: 30 1RF Rx Instructions: Apply to lower legs three times daily for the next 1-3 weeks and then as needed aspirin [Belgica Low Dose Aspirin] 81 MG tablet,delayed release (DR/EC) 81 mg PO HS montelukast 10 MG tablet 10 mg PO HS fluticasone propionate 50 mcg/actuation spray,suspension 1 spray intranasal DAILY Rx Instructions: administer into each nostril tacrolimus [Prograf] 1 mg capsule 1 mg PO Q12H sodium bicarbonate 650 mg tablet 1,300 mg PO BID Inhaler, Assist Devices [Pocket Chamber] 1 ea miscellaneous DIRECTED Qty: 0 0RF levalbuterol tartrate 45 mcg/actuation HFA aerosol inhaler 2 inh inhalation Q6H PRNQty: 15 2RF ipratropium-albuterol 0.5 mg-3 mg(2.5 mg base)/3 mL solution for nebulization 3 ml inhalation Q6H PRN (Reason: Wheezing) Qty: 24 2RF ondansetron HCl 4 mg tablet 4 mg PO DAILY Patient Comments: TAKE ONE TABLET BY MOUTH TWICE A DAY BEFORE MEAL(S) triamcinolone acetonide 0.1 % cream 1 applic TOPICAL DAILY primidone 250 mg tablet 250 mg PO QHS Patient Comments: TAKE ONE TABLET BY MOUTH EVERY NIGHT colestipol 1 gram tablet 1 g PO DAILY primidone 125 mg tablet 125 mg PO QHS Patient Comments: TAKE ONE TABLET BY MOUTH EVERY NIGHT WITH 250MG TABLET Held torsemide 20 mg tablet 40 mg PO DAILY Hold Instructions: Resume on 05/13/25. Resume as per PCP renal function prednisone 5 mg tablet 5 mg PO DIRECTED Qty: 49 0RF Hold Instructions: Resume on 05/22/25. Discuss with PCP Rx Instructions: 40 mg x 2 days, 30 mg x 2 days, 20 mg x 2 days, 15 mg x 2 days, 10 mg x 2 days, 5 mg x 2 days, 2.5 mg x 2 days, then stop. multivitamin [Daily Multi-Vitamin] 1 EACH tablet 1 ea PO DAILY Hold Instructions: Resume on 05/22/25. MVI with vitamin C- Discuss resumption with PCP in the setting of diarrhea vitamin B complex [B Complex-Vitamin B12] Tablet 1 tab PO BID Hold Instructions: Resume on 05/15/25. Discuss with PCP re: diarrhea No Action prochlorperazine maleate 10 mg tablet 10 mg PO Q6H PRN (Reason: nausea and vomiting) Qty: 20 0RF Discharge Instructions Stand Alone Forms: Nursing Discharge Form Referrals: Violetta Sanford MD [Primary Care Provider, Medicine] Referral Note: Follow-up within7 days of discharge. The PCP office will give you a call to make a follow up appointment, if you do not hear from your PCP please give them a call. 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 Diet:: heart healthy diabetic renal DS: Summary Time Spent with Patient providing and/or coordinating discharge services: Greater than 30 minutes Status at Discharge Functional status at discharge: uses cane/walker Overall status at discharge: patient is progressing back to baseline Mental Status: mental status grossly normal Speech and Movement: speech and movement normal Mood: congruent mood Affect: other (fatigued) Exam Narrative Exam Narrative: Chronically ill-appearing male older than stated age, less fatigued lloking - improved interactions, eyes non-injected minimally icteric looking sclera, alert and oriented X4, moist oral mucosa ,skin is pale warm and dry, cardiovascular a-flutter w MVR, irregular rate and rhythm, respirations even and unlabored, clear lungs bilaterally to auscultation, abdomen non-distended , soft and non-tender, moves all extremities equally , bilateral BKA and uses prosthesis RASS 0 congruent mood and affect Psych Mental Status: mental status grossly normal Speech and Movement: speech and movement normal Mood: congruent mood Affect: other (fatigued) DS: Data Vitals/I&O Vitals and I&O: Vital Signs Temperature 36.6 C 05/08/25 07:40 Temperature Source Temporal Artery Scan 05/08/25 07:40 Pulse 82 05/08/25 07:40 Pulse Rhythm Irregular 05/04/25 16:42 Pulse 55 L 05/04/25 15:50 Respiratory Rate 16 05/08/25 07:40 Respiratory Effort Normal, Non-Labored 05/04/25 16:42 Respiratory Depth Normal 05/04/25 16:42 Respiratory Pattern Normal 05/04/25 16:42 Blood Pressure 164/63 H 05/08/25 07:40 Blood Pressure Mean 96 05/08/25 07:40 Blood Pressure Position Sitting 05/04/25 12:24 Pulse Oximetry 100 05/08/25 07:40 Oxygen Delivery Method Room Air 05/08/25 07:40 Oxygen Flow Rate 0 05/08/25 07:40 Pain Level 2 05/08/25 10:16 Intake & Output 05/07/25 05/07/25 05/08/25 11:59 23:59 11:59 Intake Total 100 / 1610 1510 / 1610 Output Total 225 / 650 425 / 650 400 / 400 Balance -125 / 960 1085 / 960 -400 / -400 Weight 101.1 kg 101.5 kg Intake: IV 1000 / 1000 Oral 100 / 100 Blood Product 360 / 360 Rbc Leuko Reduced Irradiated 360 / 360 Unit [id number] Other 150 / 150 Rbc Leuko Reduced Irradiated 150 / 150 Unit [id number] Output: Urine 225 / 650 425 / 650 400 / 400 Other: Urine Color Yellow Yellow Yellow Urine Appearance Clear Clear Clear Urine Odor Normal Normal Comment pt voids in urinal. pt has a external Cath. pt is resting in bed call light within reach. Stool Size Moderate Small Stool Characteristics Soft Soft Brown Brown Data Completed and Pending Labs on day of discharge: Labs from last 24 hours 05/08/25 05/07/25 05/07/25 09:50 12:22 12:10 WBC 4.23 L RBC 2.90 L Hgb 9.1 L Hct 29.2 L MCV 101 H D MCH 31.4 MCHC 31.2 L RDW 16.1 H Plt Count 93 L MPV 9.3 Immature Gran % 0.2 Neutrophils % 59.6 Lymphocytes % 30.0 Monocytes % 8.3 Eosinophils % 1.7 Basophils % 0.2 Nucleated RBC % 0.0 Absolute Neutrophils 2.52 Absolute Lymphocytes 1.27 Absolute Monocytes 0.35 Absolute Eosinophils 0.07 Absolute Basophils 0.01 RBC Morphology Normal PT 13.7 H INR 1.4 H APTT 33.6 H Sodium 137 138 Potassium 4.8 5.0 Chloride 107 107 Carbon Dioxide 14.0 L 15.7 L Anion Gap 16.0 H 15.3 H BUN 101 H* 105 H* Creatinine 5.4 H* 5.5 H* Est GFR (CKD-EPI 2020) 10.63 10.40 Glucose 173 H 139 H Calcium 9.3 9.2 Magnesium Total Bilirubin 0.4 AST 21 ALT 14 L Alkaline Phosphatase 336 H Troponin I 34 Total Protein 5.9 L Albumin 1.7 L ABO/Rh Antibody Screen Crossmatch 05/07/25 05/07/25 10:15 06:13 WBC RBC Hgb Hct MCV MCH MCHC RDW Plt Count MPV Immature Gran % Neutrophils % Lymphocytes % Monocytes % Eosinophils % Basophils % Nucleated RBC % Absolute Neutrophils Absolute Lymphocytes Absolute Monocytes Absolute Eosinophils Absolute Basophils RBC Morphology PT INR APTT Sodium Potassium Chloride Carbon Dioxide Anion Gap BUN Creatinine Est GFR (CKD-EPI 2020) Glucose Calcium Magnesium 1.8 Total Bilirubin AST ALT Alkaline Phosphatase Troponin I Total Protein Albumin ABO/Rh O Positive Antibody Screen NEGATIVE Crossmatch See Detail PFSH All Active Problems (Updated 05/08/25 @ 13:01 by Savanna Connell NP) Lung nodule, multiple (Acute) Nausea (Acute) Bradycardia (Acute) Discharge planning issues (Acute) ACP (advance care planning) (Acute) Palliative care encounter (Acute) Abnormal chest xray (Acute) Abnormal computed tomography of abdomen and pelvis (Acute) Liver mass (Acute) Enlarged prostate (Acute) Cyst of left kidney (Acute) Hypoalbuminemia (Acute) CKD (chronic kidney disease) (Chronic) History of pneumonia (Acute) Cough (Acute) Pneumonia (Acute) Anemia (Chronic) CAP (community acquired pneumonia) (Acute) Basal cell carcinoma (Acute) Delayed wound healing (Acute ~2019) burn left arm happened 2019 fistula near wound Abnormal electrocardiogram (Acute) Phantom pain (Acute) Tremor (Acute) per pCP treated with primidone RH HTN (hypertension) (Chronic) Diabetes mellitus (Acute) Edentulous (Acute) Esophageal foreign body (Acute) Food impaction of esophagus (Acute) Macrocytic anemia (Acute) Gastroparesis diabeticorum (Acute) Kidney transplant recipient (Acute) Chronic kidney disease (Chronic) Hypertension (Chronic) Hyperlipidemia (Chronic) CAD (coronary artery disease) (Chronic) GERD (gastroesophageal reflux disease) (Chronic) Asthma (Chronic) Chronic anxiety (Chronic) Chronic depression (Chronic) Intention tremor (Chronic) Status post appendectomy (Acute) Physical medicine and rehabilitation procedures (Acute 06/27/13) Dysphagia (Acute) CHF (congestive heart failure) (Acute) Diastolic CHF (Acute) Acute kidney injury superimposed on chronic kidney disease (Acute) Uncontrolled insulin dependent diabetes mellitus (Acute) Ambulatory dysfunction (Acute) Wenckebach second degree AV block (Acute) Fluid level behind tympanic membrane of left ear (Acute) Sensory hearing loss, bilateral (Acute) Tinnitus, bilateral (Acute) Osteoma of ear canal (Acute) Atrial fibrillation (Chronic) per pcp Pt had one episode 11/10 RH Kidney transplant recipient (Chronic) 2005 Medical History Left lower lobe pneumonia Sepsis CAP (community acquired pneumonia) Infection of amputation stump of right lower extremity Tubular adenoma of colon (02/01/17) Abscess of axilla (05/11/13) Personal history of allergy to other antibiotic agent Vitamin B 12 deficiency Adenomatous colon polyp History of colon polyps Lumbar back pain Erectile dysfunction Anxiety and depression Hydrocele Intention tremor Tricuspid insufficiency Obesity Stage 3 severe COPD by GOLD classification Hyperlipidemia Sciatica GERD (gastroesophageal reflux disease) MELISSA (obstructive sleep apnea) per PCP not using CPAP 01/20/23 RH Surgical History Status post bilateral below knee amputation History of bilateral cataract extraction 1999 H/O sinus surgery 2010 History of cardiac catheterization 2005 History of appendectomy 2013 History of colonoscopy (~10/2020) History of below-knee amputation of both lower extremities 2000 and 2010 Hx of amputation below knee Kidney transplant recipient 01/08/2014 EGD - MAC (04/02/16) Colonoscopy - MAC (02/01/17) Family History Father , cancer at 64 No problems noted. Brother , SM Cell Cancer No problems noted. Sister Breast cancer Mother No problems noted. Social History Smoking/Tobacco Use Status: Former Tobacco Use Quit Date: 07/25/90 Tobacco: How many years used: 15 Smoking risk assessment performed?: Yes Alcohol Intake: never Drug use: Never Substance use type: does not use Household members: spouse Housing: house What is your relationship status?: Panel score (0-1 are the most socially isolated patients): 1 Do you feel safe at home: Yes Do you feel safe in your relationship?: Yes Time Spent with Patient Time Spent with Patient: >85 minutes Time was spent: preparing to see the patient(eg.review tests), obtaining and/or reviewing separately otained hiistory, ordering medications,tests, procedures, referring, communicating with other health director of medicare, indepentently interpreting results, counseling the patient, care coordination and other
--- NOTE | 2025-05-08 12:49 | PCPN_ITS ---
Date of service: 05/08/25 Time of Service: 12:00 Assessment and Plan Assessment and plan (1) Abnormal computed tomography of abdomen and pelvis: Status: Acute Assessment and plan: concern for liver masses, renal mass suspicious of neoplasm, RML/LLL lung nodules, small abd pelvic ascites, enlarged prostate, gallstones - recommendation for f/u MRI - need for biopsy for diagnostic clarification he would want to know if cancerous DH Heme/Onc referral placed today (2) Diarrhea: Status: Resolved Assessment and plan: resolved; Imodium w/unknown effect potentially r/t protein drinks/probiotics recommend hold and monitor requesting nutrition provide hand out for high protein and renal considerations on discharge; per Jeremie's request (3) Liver mass: Status: Acute Assessment and plan: as above (4) Enlarged prostate: Status: Acute Assessment and plan: started tamsulosin (5) Cyst of left kidney: Status: Acute Assessment and plan: f/b nephrology f/u nephrology 05/18 (6) CKD (chronic kidney disease): Status: Chronic Assessment and plan: aware of HD progression, would want to pursue dialysis at this time f/u as above; planning to start HD (7) Kidney transplant recipient: Status: Acute (8) COPD (chronic obstructive pulmonary disease): Status: None Assessment and plan: need for review chronic cough lies flat w/o dyspnea (9) CHF (congestive heart failure): Status: Acute Assessment and plan: need for review (10) Acute kidney injury superimposed on chronic kidney disease: Status: Acute Assessment and plan: w/o IVF greater than 48hr; tolerating oral intake appropriately resolved, still w/need for f/u for HD (11) Atrial fibrillation: Status: Chronic (12) Nausea: Status: Acute Assessment and plan: controlled today w/compazine - Compazine ordered outpatient today Jeremie reports Zofran in home IF nausea persists, recommend Haldol trial; to call PC or PCP office PRN (13) Bradycardia: Status: Acute Assessment and plan: w/vasovagal w/vomit/retching; resovled at rest recommend antiemetics as above (14) Palliative care encounter: Status: Acute Assessment and plan: PC to continue to follow Reuben, plan for outpatient f/u at soonest avail, or potentially during HD pending that schedule - plan for outpatient f/u HV, at soonest avail - PC to continue to review AD: limitations to treatment, LST if on ventilator/machines etc - review chronic conditions, options and preferences - updates w/nephrology, cardiology and oncology - as appropriate: eligibility for treatment for oncology and nephrology given his functional status and multiple chronic co-morbidities (15) ACP (advance care planning): Status: Acute Assessment and plan: reviewed w/HCAs Linda and Jeremie, concerns for eligibility for oncology treatment in current condition, will need to improve strength/function likely reviewed if masses were to be cancerous, would likely be stage 4 cancer; Linda would want to maintain hope that these are benign, she is unsure he understands that he may be a stage 4; reviewed w/o diagnosis, cannot definitively tell, they are folks that would want answers reviewed LST, full code; future visits to review limitations, if there are any, and update AD as appropriate reviewed need to maintain oral intake to avoid dehydration/malnutrition, avoid foods causing diarrhea reviewed caregiving concerns, recommend Jeremie help coordinate being around more to help Linda navigate caregiving requirements w/Reuben at home reviewed may call for hospice referral at any time, given his current dual eligiblity w/likely metastatic cancer and end stage renal disease spent 50m w/ACP Subjective Subjective Interval history since last seen: Reuben remains hospitalized 2/2 weakness c/b dehydration c/b diarrhea - overnight 05/07 w/vasovagal episode 2/2 vomiting w/HR in 30's; ECHO was reassuring; resolved as of 05/08 - diarrheal sxs resolved, ongoing smears of semi-loose stools, improved from presentation; increased urination overnight, placed condom cath, removed w/no issues; using bedside urinal and bedpan for bathroom currently - PT evaluation recommend PT - PO intake has been good today, including most recently ate all lunch - plan for discharge home today Reuben is sleeping at time of visit; per Linda he is exhausted today, extremely fatigued; had a bad night last night and got no sleep; preference to let him continue resting Linda believes he has a antiemetic at home that was just Rx'd to him, starting with a C - Jeremie reports he has been using Zofran at home, no Compazine in home Linda reports he does want to continue pursuing diagnosis w/biopsy of potential cancer, she is shocked to hear that it could be a stage 4, they are hoping the lesions/masses found are benign. - Jeremie reports she has been noticing increased weakness and jaundice x2-3wks, she has a high suspicion he has cancer; aware of next steps w/biopsy Linda reports they are aware of likelihood for starting hemodialysis sooner rather than later, f/u w/nephrology next week - Jeremie reports they nephrology has been reviewing this w/them for a year, so they are all ready for this next step Linda is worried about his ongoing stools; aware that his stools are not liquid anymore, so not diarrhea; had been having diarrhea a/w protein drinks, per Reuben's report to Linda - Jeremie agrees that Reuben has been associating his diarrheal sxs w/protein drinks; requests a take home written instruction for nutrition ideas for them to reference Linda feels well supported by niece Jeremie and her [place], they are planning on building a log cabin right next to them; Jeremie is at their house now helping w/some phone issues Linda reports she feels comfortable being his caregiver at home, has the equipment at home they need for transfers, etc; she is worried about his lack of energy; - Jeremie and her [place] are kind of around, their son will also be around to help Linda admits that her and Reuben are having a hard time understanding all the information - Jeremie reports concerns w/h/o denial w/Linda, and both of them being overwhelmed Linda and Jeremie report confirmation of awareness of Reuben's strong determination for remaining alive, wanting all LST would like referral to onc sent sooner rather than later Exam Narrative Exam Narrative: General: older adult, ill apearing male, lying in hospital bed, flat; sleeping HEENT: normocephalic, atraumatic Resp: even and unlabored Objective Last Vital Signs Temp 97.9 F 05/08/25 07:40 Pulse 82 05/08/25 07:40 Resp 16 05/08/25 07:40 BP 164/63 H 05/08/25 07:40 Pulse Ox 100 05/08/25 07:40 Laboratory Results - last 24 hr 05/07/25 05/07/25 05/07/25 10:15 12:10 12:22 WBC RBC Hgb Hct MCV MCH MCHC RDW Plt Count MPV Immature Gran % Neutrophils % Lymphocytes % Monocytes % Eosinophils % Basophils % Nucleated RBC % Absolute Neutrophils Absolute Lymphocytes Absolute Monocytes Absolute Eosinophils Absolute Basophils RBC Morphology PT 13.7 H INR 1.4 H APTT 33.6 H Sodium 138 Potassium 5.0 Chloride 107 Carbon Dioxide 15.7 L Anion Gap 15.3 H BUN 105 H* Creatinine 5.5 H* Est GFR (CKD-EPI 2020) 10.40 Glucose 139 H Calcium 9.2 Total Bilirubin 0.4 AST 21 ALT 14 L Alkaline Phosphatase 336 H Troponin I 34 Total Protein 5.9 L Albumin 1.7 L ABO/Rh O Positive Antibody Screen NEGATIVE Crossmatch See Detail 05/08/25 09:50 WBC 4.23 L RBC 2.90 L Hgb 9.1 L Hct 29.2 L MCV 101 H D MCH 31.4 MCHC 31.2 L RDW 16.1 H Plt Count 93 L MPV 9.3 Immature Gran % 0.2 Neutrophils % 59.6 Lymphocytes % 30.0 Monocytes % 8.3 Eosinophils % 1.7 Basophils % 0.2 Nucleated RBC % 0.0 Absolute Neutrophils 2.52 Absolute Lymphocytes 1.27 Absolute Monocytes 0.35 Absolute Eosinophils 0.07 Absolute Basophils 0.01 RBC Morphology Normal PT INR APTT Sodium 137 Potassium 4.8 Chloride 107 Carbon Dioxide 14.0 L Anion Gap 16.0 H BUN 101 H* Creatinine 5.4 H* Est GFR (CKD-EPI 2020) 10.63 Glucose 173 H Calcium 9.3 Total Bilirubin AST ALT Alkaline Phosphatase Troponin I Total Protein Albumin ABO/Rh Antibody Screen Crossmatch
[2025-05-08] MEDS: Prochlorperazine 10 MG/2 ML VIAL 5 MG IVP (12:50)
--- NOTE | 2025-05-08 13:59 | PDOC.CMDIS ---
Date of service: 05/08/25 Time of Service: 13:59 LACE Index Scoring Tool Questions: Length of Stay (in days): 4 - 6 Was the patient admitted via the E.D.?: Yes Comorbidities: Diabetes w/o Complication, Congestive Heart Failure, Chronic Pulmonary Disease and Liver or Renal Disease (Kidney transplant recipient) E.D. Visits: 1 Answers: Total Score: 13 Risk of Readmission: High Risk Care Management Discharge Plan Reason for Hospitalization: Diarrhea, Dehydration Discharge Plan: Reuben is discharged home with New [facility] RN/PT/OT/ORTHOPEDIC DENTIST services. He will follow up with community providers and continue per his discharge plan of care. Patient/Family Education Needs: Review discharge instructions and plan to follow up after discharge. Discuss ask me three. Services Needed at Discharge: Home Health Care Services (New [facility] RN/PT/OT/ORTHOPEDIC DENTIST, CM notified [facility] prior to discharge.)
--- NOTE | 2025-05-08 15:08 | W.NUTRFU ---
Date of service: 05/08/25 Time of Service: 15:08 Nutrition Note NOTE: Reuben and Linda known to me from nutrition services in outpatient setting and have met with them mulitple times current admission. PT with diarrhea for multiple weeks prior to this admission. Diarrhea persists with some incontinence in brief noted today. ONS have aggravated his diarrhea with possible lactose sensitivity. Offering lower potassium diet that is CHO consistent to help manage glucose. A1C 6.9 05/04. Majority of finger sticks <200 this admission. PT offered thick handled utensils and sip cup for beverages for ease d/t shakiness. - keeping menu options soft. His intake at meals has been fair to good with his weight stable over admission (with some discrepancies d/t bedscale used majority of the time). Pt received sample menus lower in potassium, moderated CHO and protein and lower residue/bland diet for 1700kcals per day as a general guide for food choices. Nutrition recommendations will alter once dialysis starts and Reuben should be educated through that process - will remain available for outpatient support Time Spent in Nutritional Counseling and Treatment: 10 min
--- NOTE | 2025-05-08 15:23 | W.NUTRFU ---
Date of service: 05/08/25 Time of Service: 15:23 Nutrition Note NOTE: Provided a 3 day sample menu that is low in total fiber with good sources of soluble fiber for diarrhea management. The menu is also moderate in protein and carbohydrates and low in potassium for diabetes and renal disease. Mr. Torres will need increased protein intake however when he starts dialysis. The patient or his are able to contact Lamont Mary RDN, [facility] at [phone] should they have further questions or concerns regarding his nutritional therapy after discharge. Time Spent in Nutritional Counseling and Treatment: 10 minutes
--- NOTE | 2025-05-08 15:27 | PDOC.HHF2F_ITS ---
Date of service: 05/08/25 Time of Service: 15:27 Home Health Referral Home Health Orders Clinical synopsis of why skilled professionals are needed: Patient with past medical history significant for kidney transplant, atrial fibrillation, congestive heart failure, bilateral BKA, diabetes mellitus, COPD, hypertension presents to the emergency department for evaluation of weakness in the setting of acute diarrhea. His workup in the emergency department does show acute on chronic renal insufficiency. Potassium elevated at 5.6. Hemodynamically he was stable and afebrile. Did not meet sepsis criteria. The patient was admitted to the hopitlist service for IV hydration and further monitoring. His potassium was found to be elevated at 5.6 he was provided calcium gluconate in the emergency department. Magnesium 1.5, given 2 g of IV magnesium. He was also given a fluid bolus of 500 cc normal saline. Incidental findings of bilateral lung nodules, liver mass/ lesion X3 CT imaging of the abdomen and pelvis without contrast. Recommended follow-up with MRI when available but delayed to creatinine overing around 5.3-5.4 despite IV crystalloid infusion. Discussion with urology at [facility] Dr. Whiteside, renal carcinoma - most likely not a primary for liver lesions if they were found to be neoplastic, no clear hydropnephrosis on transplant and bilateral renal artery stenosis pertained to the [place] kidneys and not the transplant. Tumor marker AFP recommended and pending. C-diff and stool pathogens are negative. Patient reported follow-up in nephrology at [facility] with Dr. Suarez but was unable to discuss previous or next appointment or specific plan with ongoing worsening failure of renal transplant. Upon discussion with Dr Jo from [facility] nephrology, no recommendation for acute intervention or emergent transfer, the patient has seen Dr. Trujillo nephrology CLINICAL DIRECTOR in 01/2025 with f/u due for 04/2025. Renal US reported stable appearance of left renal transplant kidney, right renal cyst. The patient clinically improved and diarrhea frequency is reduced and is tolerating oral intake. PT consult completed with recommendation for home health PT, the patient will also benefit from home occupational therapy, nursing and HERD TESTER. Palliative care to continue to follow outpatient. As per discussion with radiologist further imaging most likely not to yield more information but biopsy of the liver lesions is required. As per discussion with palliative care the patient would like a work-up for new findings on CT with the goal of obtaining oncology treatment if necessary. Brief vasovagal episode, approximately 6 seconds occurring with dry heaving with transient HR in the 20's with spontaneous resolution resulting in negative EKG and troponin work-up. Echocardiogram conclusion: Normal left ventricular wall thickness and chamber size. Ejection fraction is 50 to 55%. There are no segmental wall motion abnormalities Normal right ventricular size and function Both atria are mildly enlarged Aortic valve is trileaflet and mildly sclerotic without stenosis or regurgitation Mitral annular calcification. Trace mitral regurgitation Estimated right ventricular systolic pressure is 35 mmHg PRBC one unit transfused for Hgb 8.4 in the setting of symptomatic anemia of chronic disease with resolution of symptoms and stable Hgb. The patient is hemodynamically stable , afebrile and will be discharged home with home health services with follow-up with PCP within 7 days of discharge. Nephrology follow- up reported scheduled for next week. Discussed with Dr. Warner Registered Nurse: Check all that apply Instruct on new or changed medication(s)/assess compliance: Ordered Assess for exacerbation of medical condition, instruct patient/caregivers on signs and symptoms to report for early detection: Ordered Physical Therapist: Check all that apply Increase strength & endurance for safe mobility at home: Ordered To design/establish home maintenance program: Ordered Fall reduction therapy program for patient with history of frequent falls: Ordered Home safety evaluation and teaching/gait training including stair management (if applicable): Ordered Occupational Therapist: Evaluate and treat for patient unable to perform ADL/IADL/self-care: Ordered Upper extremity strengthening, range and motion: Ordered Flat Cutter: Assist with community resources: Ordered Assist with intermodal customer service care planning: Ordered Encounter Date and Reason: I certify that a FTF encounter for this patient was performed on May 08, 2025 and that such encounter was related to the primary reason the patient re quires home health services. The encounter was conducted in the following manner: * By me as the certifying physician, CLINICAL DIRECTOR, PA or * By an inpatient physician, CLINICAL DIRECTOR or PA during an inpatient stay who communicated findings to me, Certification And Authentication I certify that I composed the above information based on my clinical judgment relating to this patient's medical condition and, if applicable, clinical findings communicated to me by the NPP or inpatient physician who performed the FTF encounter. Name of Provider that will be monitoring home health services: Violetta Sanford
== END 2025-05-08 16:38 | disposition home health service (06) | DRG 683 ==
LOC: ER 14:48 → MS 16:24
PROVIDERS: Nurse Practitioner Acute Care; Admitting Provider Family Medicine; Emergency Provider Emergency Medicine; PCP Family Medicine; Responsible Provider Nurse Practitioner Acute Care; Visit Provider Family Medicine
DX: N17.9 Acute kidney failure, unspecified (principal); Z94.0 Kidney transplant status; J44.9 Chronic obstructive pulmonary disease, unspecified; D53.9 Nutritional anemia, unspecified; N40.0 Benign prostatic hyperplasia without lower urinary tract symptoms; N28.1 Cyst of kidney, acquired; I48.91 Unspecified atrial fibrillation; C64.1 Malignant neoplasm of right kidney, except renal pelvis; I13.0 Hypertensive heart and chronic kidney disease with heart failure and stage 1 through stage 4 chronic kidney disease, or unspecified chronic kidney disease; I50.30 Unspecified diastolic (congestive) heart failure; R18.8 Other ascites; R19.7 Diarrhea, unspecified; E83.42 Hypomagnesemia; E87.5 Hyperkalemia; K76.89 Other specified diseases of liver; Z79.621 Long term (current) use of calcineurin inhibitor; E11.22 Type 2 diabetes mellitus with diabetic chronic kidney disease; D69.6 Thrombocytopenia, unspecified; R25.1 Tremor, unspecified; E11.43 Type 2 diabetes mellitus with diabetic autonomic (poly)neuropathy; K31.84 Gastroparesis; E78.5 Hyperlipidemia, unspecified; F41.9 Anxiety disorder, unspecified; F32.A Depression, unspecified; K21.9 Gastro-esophageal reflux disease without esophagitis; I25.10 Atherosclerotic heart disease of native coronary artery without angina pectoris; I44.1 Atrioventricular block, second degree; H90.3 Sensorineural hearing loss, bilateral; G47.33 Obstructive sleep apnea (adult) (pediatric); Z89.512 Acquired absence of left leg below knee; Z89.511 Acquired absence of right leg below knee; Z79.4 Long term (current) use of insulin; I70.1 Atherosclerosis of renal artery; R00.1 Bradycardia, unspecified; R11.0 Nausea; R91.8 Other nonspecific abnormal finding of lung field
CPT/HCPCS: 00123; 36415; 51702; 76770; 80048; 80053; 83690; 86850; 86900; 86901; 86920; 86945; 87505; 87637; 93005; 93306; 96365; 96375; 97162; 97530; 99285; 74176; 80197; 81003; 81015; 82105; 82270; 82565; 82607; 82728; 82746; 83036; 83540; 83550; 83630; 83735; 84156; 84439; 84443; 84484; 85025; 85045; 85610; 85730; 86644; 93010; 99222; 99233; 99239; G0378; J0612; J0780; J1644; J1815; J3475; J3490; J7517; P9016

== ENCOUNTER 2025-05-14 00:29 | Outpatient (RCR) | payer MEDICARE, OTHER, SELFPAY ==
[2025-04-30 08:44] LABS: Abs Immature Grans 0.01 10^3/uL (0.0-0.06); HCT 29.7 % (40.0-50.0); HGB 9.2 g/dL (13.5-17.5); Immature Grans % 0.2 %; MCH 32.3 pg (27.0-33.0); MCHC 31.0 % (32.0-36.0); MCV 104 fL (80-95); MPV 9.3 fL (8.0-11.0); Platelet Count 109 10^3/uL (130-400); RBC 2.85 10^6/uL (4.36-5.78); RDW 14.5 % (11.8-14.1); RDW-SD 55.7 fL; WBC 4.81 10^3/uL (4.4-10.8)
[2025-04-30] MEDS: Normal Saline Flush 10 ML SYR IVP (08:45)
[2025-04-30] MEDS: Darbepoetin 300 MCG SYR SC (09:26)
[2025-04-30 09:41] LABS: EPI 027-NAP1-B1 PRESUMPTIVE NEGATIVE
[2025-04-30 23:32] LABS: Campylobacter PCR Negative (Negative); Shiga Toxin PCR Negative (Negative); Shigella/Enteroinvasive Ecoli Negative (Negative)
[2025-05-14] MEDS: Normal Saline Flush 10 ML SYR IVP (08:20)
[2025-05-14 08:34] LABS: Abs Immature Grans 0.01 10^3/uL (0.0-0.06); HCT 29.2 % (40.0-50.0); HGB 9.0 g/dL (13.5-17.5); Immature Grans % 0.2 %; MCH 31.0 pg (27.0-33.0); MCHC 30.8 % (32.0-36.0); MCV 101 fL (80-95); MPV 9.1 fL (8.0-11.0); Platelet Count 106 10^3/uL (130-400); RBC 2.90 10^6/uL (4.36-5.78); RDW 15.2 % (11.8-14.1); RDW-SD 56.0 fL; WBC 6.13 10^3/uL (4.4-10.8)
[2025-05-14] MEDS: Darbepoetin 300 MCG SYR SC (08:48)
== END 2025-05-24 23:59 | disposition home or self-care (01) ==
LOC: INF 00:29
PROVIDERS: Nurse Practitioner Adult Health; PCP Family Medicine; Visit Provider Internal Medicine Hematology & Oncology
DX: N18.4 Chronic kidney disease, stage 4 (severe) (principal); D63.1 Anemia in chronic kidney disease; R19.7 Diarrhea, unspecified
CPT/HCPCS: 36415; 86850; 86900; 86901; 87015; 87269; 87272; 87505; 96372; 83993; 85025; J0881

== ENCOUNTER → 2025-05-20 11:04 | Outpatient (BNVA) | payer MEDICARE, OTHER, SELFPAY | PROVIDERS: PCP Family Medicine; Referring Provider Family Medicine; Visit Provider Surgery | DX: R19.7 Diarrhea, unspecified (principal) | CPT/HCPCS: 99213 ==

== ENCOUNTER 2025-05-23 18:47 | Outpatient (REF) | payer MEDICARE, OTHER, SELFPAY | END 2025-05-23 18:48 | disposition home or self-care (01) | LOC: NCHCN 18:47 | PROVIDERS: PCP Family Medicine; Visit Provider Family Medicine | DX: N39.0 Urinary tract infection, site not specified (principal) | CPT/HCPCS: 87077; 87086; 87186 ==

== ENCOUNTER 2025-05-24 12:03 | Inpatient (IN) | payer MEDICARE, OTHER, SELFPAY ==
[2025-05-24] VITALS (59 sets, daily range): BP systolic 123–180; BP diastolic 50–100; PULSE 65–98; RESP 13–23; TEMP 36–37; O2SAT 92–100
--- NOTE | 2025-05-24 12:00 | RT.EKG_ITS ---
APPROVED REPORT Exam: Resting ECG Reason for Exam: bradycardia Patient Location: E HR:83 bpm ECG Measurements Heart Rate 83 AXIS TX [id number] P [id number] QRSd 174 QRS -64 QT 437 T 63 QTc 515 Conclusion Atrial flutter, rate 83, unchanged from priors PVCs Prolonged QTc at 515ms RBBB and LAFB, unchanged from priors No STEMI
--- NOTE | 2025-05-24 12:00 | DI.CT_ITS ---
Exam(s) CT ABDOMEN PELVIS WO EXAM: CT ABDOMEN PELVIS WO CLINICAL HISTORY: Back pain, CKD, UTI. TECHNIQUE: Imaging Protocol: Axial computed tomography images with coronal and sagittal reformatted images were created and reviewed CONTRAST MATERIAL: Intravenous: none Oral: None COMPARISON: CT CT CHEST WO from 12/15/[address] ABDOMEN PELVIS WO from 05/04/2025 FINDINGS: VISUALIZED LUNG BASES: There is subpleural infiltrate in the lateral segment of the right middle lobe. This is unchanged from 05/04/2025 but was not evident on chest CT scan of 12/15/2023. Milder increased markings are noted in the posterior basal segment of the left lower lobe. There are no pleural effusions.. ABDOMEN: There is mild ascites, but increased from the lesser amount of ascites which was evident on the CT scan of 05/04/2025 LIVER: The large mass in the right hepatic lobe is again noted, similar to 05/04/2025 but not evident on CT scan of 12/15/2023. This is difficult to evaluate without IV contrast but most probably represents neoplasm (although abscess is always also consideration). As this was not evident in 2023 it is not a large hemangioma.. GALLBLADDER/BILIARY: Tiny gallstones again noted. Gallbladder does not appear edematous. The CBD is not dilated and there are no calculi seen in the CBD. PANCREAS: No evidence of pancreatic mass nor dilatation of the pancreatic duct. SPLEEN: Splenomegaly is again noted. Spleen measures 15.5 cm. ADRENALS: There are no significant adrenal masses. KIDNEYS:Both kidneys are again noted be atrophic. There is a small benign cyst in the lateral cortex of the left kidney which measures 1.5 cm, unchanged. There is a non cystic mass in the superior pole of the right kidney again noted, similar size to previous measuring approximately 3.5 x 3.7 cm with density units too high for simple cyst. This is either hemorrhagic cyst or neoplasm in the right kidney no evidence of hydronephrosis on either side.. There is a left pelvic transplant kidney again noted. It now exhibits hydronephrosis and hydroureter with the ureter dilated to 12 mm. This has increased from previous. There is no radiopaque calculus in the ureter of this transplant kidney and there are no radiopaque calculi evident in the urinary bladder lumen. There is diffuse symmetrical thickening of the urinary bladder wall, more prominent than on 05/04/2025 although the bladder does appear less distended than previous. ABDOMINAL AORTA: Abdominal aorta is not enlarged. LYMPH NODES: There is no retroperitoneal nor paraaortic adenopathy. ABDOMINAL WALL: No evidence of significant anterior abdominal wall nor significant inguinal hernia. Mild symmetrical anasarca. There is also again noted a prominent soft tissue 9 calcification lateral to the left hip measuring 2.5 cm. GI: There is no evidence of bowel obstruction, free air, nor abscess. PELVIS: LYMPH NODES: There is no intrapelvic nor inguinal adenopathy. GI: No evidence of appendicitis.No evidence of sigmoid diverticulitis. URINARY BLADDER: Diffusely thickened bladder wall. REPRODUCTIVE: Prostate size minimally prominent. Seminal vesicles unremarkable. OSSEOUS: No significant osseous lesions. No fractures. Chronic multilevel degenerative disc disease L3-4 and L4-5 levels. No listhesis. IMPRESSION: 1. Compared to the prior CT scan of 05/04/2025 there is again noted a large mass occupying large part of the right hepatic lobe which was not evident on a CT scan of November 2023 and therefore most probably malignant (although correlation with any clinical history which would suggest this being an abscess is recommended). There is also increasing ascites and mild symmetrical anasarca. 2. Splenomegaly again noted. 3. 3.7 x 3.5 cm mass in the superior pole the [place] right kidney again noted, suspicious for neoplasm. 4. There is new hydronephrosis and hydroureter of the left iliac fossa transplant kidney. The ureter is dilated to 12 mm. There is no obvious radiopaque calculus in the transplant ureter nor in the urinary bladder. There is diffuse thickening of the urinary bladder wall noted but without an obvious distinct mass at the transplant ureteral insertion site on the anterior aspect of the bladder. 5. Small calcified gallstones again noted. No obvious evidence of acute cholecystitis. 6. Persistent infiltrate in the lateral segment of the right middle lobe which appears unchanged from 05/04/2025. It was not evident on prior chest CT scan of November 2023. Report called by myself to ER physician 05/24/2025 at 1:58 p.m. RADIATION DOSE DELIVERED: 1,798.48mGy.cm Total DLP DATA REPOSITORY: All CT scans at this facility are submitted to the National Radiology Data Registry (NRDR) Dose Index Registry (DIR) with the [employer] (A[employer]). RADIATION OPTIMIZATION: All CT scans at this facility use at least one of these dose optimization techniques: automated exposure control; mA and/or kV adjustment per patient size (includes targeted exams where dose is matched to clinical indication); or iterative reconstruction.
[2025-05-24 12:43] LABS: Abs Immature Grans 0.01 10^3/uL (0.0-0.06); HCT 25.9 % (40.0-50.0); HGB 8.0 g/dL (13.5-17.5); Immature Grans % 0.3 %; MCH 30.0 pg (27.0-33.0); MCHC 30.9 % (32.0-36.0); MCV 97 fL (80-95); MPV 9.6 fL (8.0-11.0); RBC 2.67 10^6/uL (4.36-5.78); RDW 14.6 % (11.8-14.1); RDW-SD 51.8 fL; WBC 3.66 10^3/uL (4.4-10.8)
--- NOTE | 2025-05-24 12:45 | W.ED.GENAD ---
Discharge Plan Disposition Patient Disposition: Admit to [facility] Condition: Stable Discharge Details Clinical Impression: Catheter-associated urinary tract infection, CKD (chronic kidney disease), stage V, Atrial flutter, Liver mass, Kidney mass Primary Care Provider: Violetta Sanford ED Provider: Zuleima Vaughn Home Meds and New Rx's Prescriptions: No Action folic acid 1 mg tablet 1 mg PO DAILY mycophenolate mofetil [CellCept] 250 mg capsule 500 mg PO BID Patient Comments: BRAND calcitriol 0.25 mcg capsule 0.5 mcg PO DAILY acetaminophen 325 mg capsule 650 mg PO Q6H PRN amlodipine 10 mg tablet 10 mg PO DAILY atorvastatin 20 mg tablet 20 mg PO DAILY chlorthalidone 25 mg tablet 25 mg PO DAILY primidone 50 mg tablet 150 mg PO BID torsemide 20 mg tablet 40 mg PO DAILY insulin glargine U-300 conc [Toujeo Max U-300 SoloStar] 300 unit/mL (3 mL) insulin pen 70 unit subcut DAILY Aranesp (in polysorbate) 200 mcg/mL solution 300 mcg SUBCUT .14 days Patient Comments: in clinic- 04/30/25 mecobalamin (vitamin B12) 1,000 mcg tablet,chewable 1,000 mcg PO DAILY prochlorperazine maleate 10 mg tablet 10 mg PO Q6H PRN (Reason: nausea and vomiting) Qty: 20 0RF carvedilol 6.25 mg tablet 12.5 mg PO BID Rx Instructions: must administer with a meal/food prednisone 5 mg tablet 5 mg PO DIRECTED Qty: 49 0RF Rx Instructions: 40 mg x 2 days, 30 mg x 2 days, 20 mg x 2 days, 15 mg x 2 days, 10 mg x 2 days, 5 mg x 2 days, 2.5 mg x 2 days, then stop. mupirocin calcium 2 % cream 1 applic topical TID Qty: 30 1RF Rx Instructions: Apply to lower legs three times daily for the next 1-3 weeks and then as needed aspirin [[place] Low Dose Aspirin] 81 MG tablet,delayed release (DR/EC) 81 mg PO HS montelukast 10 MG tablet 10 mg PO HS multivitamin [Daily Multi-Vitamin] 1 EACH tablet 1 ea PO DAILY fluticasone propionate 50 mcg/actuation spray,suspension 1 spray intranasal DAILY Rx Instructions: administer into each nostril vitamin B complex [B Complex-Vitamin B12] Tablet 1 tab PO BID tacrolimus [Prograf] 1 mg capsule 1 mg PO Q12H sodium bicarbonate 650 mg tablet 1,300 mg PO BID Inhaler, Assist Devices [Pocket Chamber] 1 ea miscellaneous DIRECTED Qty: 0 0RF levalbuterol tartrate 45 mcg/actuation HFA aerosol inhaler 2 inh inhalation Q6H PRNQty: 15 2RF ipratropium-albuterol 0.5 mg-3 mg(2.5 mg base)/3 mL solution for nebulization 3 ml inhalation Q6H PRN (Reason: Wheezing) Qty: 24 2RF ondansetron HCl 4 mg tablet 4 mg PO DAILY Patient Comments: TAKE ONE TABLET BY MOUTH TWICE A DAY BEFORE MEAL(S) triamcinolone acetonide 0.1 % cream 1 applic TOPICAL DAILY primidone 250 mg tablet 250 mg PO QHS Patient Comments: TAKE ONE TABLET BY MOUTH EVERY NIGHT colestipol 1 gram tablet 1 g PO DAILY primidone 125 mg tablet 125 mg PO QHS Patient Comments: TAKE ONE TABLET BY MOUTH EVERY NIGHT WITH 250MG TABLET tamsulosin 0.4 mg Capsule 0.4 mg PO DAILY Qty: 30 0RF loperamide [Anti-Diarrheal (loperamide)] 2 mg capsule 2 mg PO QID PRNQty: 30 0RF Rx Instructions: For loose stool prochlorperazine maleate 5 mg Tablet 5 mg PO Q8H Qty: 15 0RF HPI General Mode of arrival: EMS. Date/Time Provider Initiated Documentation: 05/24/25 12:10. Limitations to Documentation: no limitations. Information obtained by: patient, family and old records reviewed. HPI Narrative: This is a 70-year-old male patient with a history of CKD status post kidney transplant in 2005 with recurrent stage V CKD not yet on hemodialysis, history of Chang catheter, CAD, hypertension, hyperlipidemia, COPD, presenting for evaluation of generalized weakness and cloudy urine. The patient noted the symptoms yesterday, states that his weakness is generalized but is worse in his bilateral legs. No recent falls, head strikes, patient denies fever but is experiencing some back pain. He states that he just had the catheter changed today. He is awaiting a Holter monitor from his outpatient providers, as well as a reported liver biopsy. He denies hematuria, abdominal or chest pain, shortness of breath Related Data Home Medications Medication Instructions Recorded Confirmed aspirin 81 mg tablet,delayed 81 mg PO HS 10/31/12 05/24/25 release ([place] Low Dose Aspirin) montelukast 10 mg tablet 10 mg PO HS 10/31/12 05/24/25 multivitamin (Daily Multi-Vitamin 1 ea PO DAILY 05/10/13 05/24/25 tablet) Held on 05/08/25. Instructions: Resume on 05/22/25. MVI with vitamin C- Discuss resumption with PCP in the setting of diarrhea folic acid 1 mg tablet 1 mg PO DAILY 06/12/18 05/24/25 fluticasone propionate 50 1 spray intranasal DAILY 09/04/20 05/24/25 mcg/actuation nasal spray,suspension tacrolimus 1 mg capsule, 1 mg PO Q12H 09/04/20 05/24/25 immediate-release (Prograf) vitamin B complex (B 1 tab PO BID 09/04/20 05/24/25 Complex-Vitamin B12 tablet) Held on 05/08/25. Instructions: Resume on 05/15/25. Discuss with PCP re: diarrhea calcitriol 0.25 mcg capsule 0.5 mcg PO DAILY 04/14/21 05/24/25 mycophenolate mofetil 250 mg 500 mg PO BID 04/14/21 05/24/25 capsule (CellCept) Inhaler, Assist Devices [Pocket 1 ea miscellaneous DIRECTED ##0 01/16/23 05/24/25 Chamber] sodium bicarbonate 650 mg tablet 1,300 mg PO BID 01/24/23 05/24/25 acetaminophen 325 mg capsule 650 mg PO Q6H PRN 10/19/23 05/24/25 amlodipine 10 mg tablet 10 mg PO DAILY 10/19/23 05/24/25 atorvastatin 20 mg tablet 20 mg PO DAILY 10/19/23 05/24/25 chlorthalidone 25 mg tablet 25 mg PO DAILY 10/19/23 05/24/25 darbepoetin cristy in polysorbat 200 300 mcg subcut .14 days 10/19/23 05/24/25 mcg/mL in polysorbate injection (Aranesp) insulin glargine U-300 conc 300 70 unit subcut DAILY 10/19/23 05/24/25 unit/mL (3 mL) subcutaneous pen (Toujeo Max U-300 SoloStar) mecobalamin (vitamin B12) 1,000 1,000 mcg PO DAILY 10/19/23 05/24/25 mcg chewable tablet primidone 50 mg tablet 150 mg PO BID 10/19/23 05/24/25 torsemide 20 mg tablet 40 mg PO DAILY 10/19/23 05/24/25 Held on 05/06/25. Instructions: Resume on 05/13/25. Resume as per PCP renal function ipratropium 0.5 mg-albuterol 3 mg 3 ml inhalation Q6H PRN Wheezing 12/16/23 05/24/25 (2.5 mg base)/3 mL nebulization #24 units soln levalbuterol tartrate 45 2 inh inhalation Q6H PRN #15 grams 12/16/23 05/24/25 mcg/actuation aerosol inhaler carvedilol 6.25 mg tablet 12.5 mg PO BID 12/19/24 05/24/25 mupirocin calcium 2 % topical cream 1 applic topical TID #30 grams 12/19/24 05/24/25 prednisone 5 mg tablet 5 mg PO DIRECTED #49 tabs 12/19/24 05/24/25 Held on 05/08/25. Instructions: Resume on 05/22/25. Discuss with PCP colestipol 1 gram tablet 1 g PO DAILY 05/04/25 05/24/25 ondansetron HCl 4 mg tablet 4 mg PO DAILY 05/04/25 05/24/25 primidone 125 mg tablet 125 mg PO QHS 05/04/25 05/24/25 primidone 250 mg tablet 250 mg PO QHS 05/04/25 05/24/25 triamcinolone acetonide 0.1 % 1 applic topical DAILY 05/04/25 05/24/25 topical cream loperamide 2 mg capsule 2 mg PO QID PRN #30 caps 05/06/25 05/24/25 (Anti-Diarrheal (loperamide)) tamsulosin 0.4 mg capsule 0.4 mg PO DAILY #30 caps 05/06/25 05/24/25 prochlorperazine maleate 10 mg 10 mg PO Q6H PRN nausea and 05/08/25 05/24/25 tablet vomiting #20 tabs prochlorperazine maleate 5 mg 5 mg PO Q8H #15 tabs 05/08/25 05/24/25 tablet Previous Rx's Medication Instructions Recorded Inhaler, Assist Devices [Pocket 1 ea miscellaneous DIRECTED ##0 01/16/23 Chamber] ipratropium 0.5 mg-albuterol 3 mg 3 ml inhalation Q6H PRN Wheezing 12/16/23 (2.5 mg base)/3 mL nebulization #24 units soln levalbuterol tartrate 45 2 inh inhalation Q6H PRN #15 grams 12/16/23 mcg/actuation aerosol inhaler mupirocin calcium 2 % topical cream 1 applic topical TID #30 grams 12/19/24 prednisone 5 mg tablet 5 mg PO DIRECTED #49 tabs 12/19/24 Held on 05/08/25. Instructions: Resume on 05/22/25. Discuss with PCP loperamide 2 mg capsule 2 mg PO QID PRN #30 caps 05/06/25 (Anti-Diarrheal (loperamide)) tamsulosin 0.4 mg capsule 0.4 mg PO DAILY #30 caps 05/06/25 prochlorperazine maleate 10 mg 10 mg PO Q6H PRN nausea and 05/08/25 tablet vomiting #20 tabs prochlorperazine maleate 5 mg 5 mg PO Q8H #15 tabs 05/08/25 tablet Allergies Allergy/AdvReac Type Severity Reaction Status Date / Time levofloxacin Allergy Mild Unknown Verified 05/24/25 12:13 sulfamethoxazole (From Allergy Mild Unknown Verified 05/24/25 12:13 Bactrim) trimethoprim (From Bactrim) Allergy Mild Unknown Verified 05/24/25 12:13 doxycycline Allergy Unknown Other (See Verified 05/24/25 12:13 Comment) tree nut Allergy Unknown Other (See Verified 05/24/25 12:13 Comment) clindamycin Allergy Skin Rash Verified 05/24/25 12:13 ibuprofen Allergy Other (See Verified 05/24/25 12:13 Comment) Penicillins Allergy SWELLING Verified 05/24/25 12:13 lisinopril AdvReac KIDNEY Verified 05/24/25 12:13 SHUT DOWN yaneth inhibitors Allergy Mild Skin Rash Uncoded 05/24/25 12:13 CATS & BIRDS AdvReac Intermediate WHEEZING Uncoded 05/24/25 12:13 General Stated Complaint: AMS/LOC RADHA: 3 Exam Narrative Exam Narrative: Gen: Awake and alert, appears chronically ill HEENT: Non-icteric sclera Neck: Supple Lungs: No apparent respiratory distress, normal respiratory effort. Lung sounds clear and equal bilaterally CV: Appears well perfused, heart with regular rate and rhythm, strong distal pulses Abdomen: Slightly distended, nontender to palpation without rigidity, rebound, or guarding : Chang catheter in place with cloudy yellow urine MSK: Bilateral upper extremities atraumatic, status post bilateral AKA Skin: Visualized skin without rashes, cyanosis, slightly pale Neuro: Generalized weakness without focal deficits and strength, no sensory deficits. Face is symmetrical, speaks in full, clear sentences. Psych: Appropriate for situation. Course Vital Signs Vital signs: Vital Signs Temperature 36.9 C 05/24/25 12:03 Pulse 73 05/24/25 12:03 Respiratory Rate 18 05/24/25 12:03 Blood Pressure 123/78 05/24/25 12:03 Pulse Oximetry 99 05/24/25 12:03 Temperature 36.9 C 05/24/25 12:03 Pulse 73 05/24/25 12:03 Respiratory Rate 18 05/24/25 12:03 Blood Pressure 123/78 05/24/25 12:03 Pulse Oximetry 99 05/24/25 12:03 Oxygen Delivery Method Room Air 05/24/25 12:03 Oxygen Flow Rate 0 05/24/25 12:03 Pain Level 0 05/24/25 12:03 Lab/Test Results Lab/Test Results: Laboratory Tests Range/Units 05/24/25 12:30 VBG Lactate (<or=2.0) mmol/L 1.2 Medical Decision Making This is a 70-year-old male patient presenting for evaluation of generalized weakness and urine changes. Differential includes but is not limited to urinary tract infection, certainly considered kidney dysfunction, liver pathology, sepsis and bacteremia though the patient is reassuringly without tachycardia or fever. Considered metabolic and electrolyte derangement, intra-abdominal pathology including kidney stone, diverticulitis, bowel obstruction. The patient is reassuringly making urine, though I certainly considered renal failure requiring emergent dialysis. Considered cardiac arrhythmia and ACS though the patient is reassuringly chest pain-free. We obtained an EKG which shows an atrial flutter with no evidence of acute ischemic changes nor significant changes compared to priors. We will obtain labs to include CBC, CMP, magnesium, lipase, troponin, urinalysis, and will replace the patient's Chang catheter. I will obtain a Noncon CT abdomen and pelvis to evaluate for pathology that could explain the patient's symptoms. -I reviewed the patient's laboratory studies, which show a fairly stable pancytopenia with a white blood cell count of 3.6, hemoglobin 8.0, platelet count 94. Chemistry panel is most notable for a BUN of 108 and a creatinine of 6.6, slightly above the patient's baseline. He is mildly hyponatremic but does not have any significant elevation in his potassium. The troponin was negative and without interval increase in 1 hour delta recheck. Lipase is low, alkaline phosphatase is elevated to 407 but no liver or liver enzyme abnormalities appreciated. Urinalysis is infectious with moderate blood and large pyuria, sent for culture. There is unfortunately no historical urine cultures to guide antibiosis so a gram of ceftriaxone was provided. CT scan shows new hydronephrosis of the transplanted kidney, without obstructing stone. He additionally has incidental note made of slightly increased ascites, a large liver mass concerning for malignancy (of which the patient is aware and has a scheduled biopsy), as well as a renal mass concerning for malignancy. I discussed the case with the transplant hospice office coordinator, general hospice office coordinator, and hospitalist at [facility] [place]. Unfortunately, as the patient is not currently a replete transplant candidate, and does not have urgent or emergent indications for dialysis, he is not able to be accepted at [facility] [place] for transfer. The patient has been repleted with 1 L of isotonic fluids and has put out approximately 200 cc of urine while in the emergency department. We will repeat the BMP, and I did reach out to our hospitalist to discuss this case, as we would typically not keep the patient in our hospital who could potentially progress to needing dialysis. However, given his reassuring workup, the fact that he is making urine, and the hospice office coordinator and general medicine provider reassurance from the tertiary center that this would likely improve with antibiosis and Chang replacement, the hospitalist team has very graciously accepted this patient for admission here at [facility]. The patient remained hemodynamically appropriate while under my care and was transferred to their service without incident. Zuleima Vaughn MD [facility] All Active Problems (Updated 05/09/25 @ 00:03 by LYLA LUNA) Kidney mass (Acute) Liver mass (Acute) Atrial flutter (Acute) CKD (chronic kidney disease), stage V (Acute) Catheter-associated urinary tract infection (Acute) Lung nodule, multiple (Acute) Abnormal chest xray (Acute) Abnormal computed tomography of abdomen and pelvis (Acute) Liver mass (Acute) Enlarged prostate (Acute) Cyst of left kidney (Acute) CKD (chronic kidney disease) (Chronic) History of pneumonia (Acute) Cough (Acute) Pneumonia (Acute) Anemia (Chronic) CAP (community acquired pneumonia) (Acute) Basal cell carcinoma (Acute) Delayed wound healing (Acute ~2019) burn left arm happened 2019 fistula near wound Abnormal electrocardiogram (Acute) Phantom pain (Acute) Tremor (Acute) per pCP treated with primidone RH HTN (hypertension) (Chronic) Diabetes mellitus (Acute) Edentulous (Acute) Esophageal foreign body (Acute) Food impaction of esophagus (Acute) Macrocytic anemia (Acute) Gastroparesis diabeticorum (Acute) Chronic kidney disease (Chronic) Hypertension (Chronic) Hyperlipidemia (Chronic) CAD (coronary artery disease) (Chronic) GERD (gastroesophageal reflux disease) (Chronic) Asthma (Chronic) Chronic anxiety (Chronic) Chronic depression (Chronic) Intention tremor (Chronic) Status post appendectomy (Acute) Physical medicine and rehabilitation procedures (Acute 06/27/13) Dysphagia (Acute) CHF (congestive heart failure) (Acute) Diastolic CHF (Acute) Acute kidney injury superimposed on chronic kidney disease (Acute) Uncontrolled insulin dependent diabetes mellitus (Acute) Ambulatory dysfunction (Acute) Wenckebach second degree AV block (Acute) Fluid level behind tympanic membrane of left ear (Acute) Sensory hearing loss, bilateral (Acute) Tinnitus, bilateral (Acute) Osteoma of ear canal (Acute) Atrial fibrillation (Chronic) per pcp Pt had one episode 11/10 RH Kidney transplant recipient (Chronic) 2005 Medical History Left lower lobe pneumonia Sepsis CAP (community acquired pneumonia) Infection of amputation stump of right lower extremity Tubular adenoma of colon (02/01/17) Abscess of axilla (05/11/13) Personal history of allergy to other antibiotic agent Vitamin B 12 deficiency Adenomatous colon polyp History of colon polyps Lumbar back pain Erectile dysfunction Anxiety and depression Hydrocele Intention tremor Tricuspid insufficiency Obesity Stage 3 severe COPD by GOLD classification Hyperlipidemia Sciatica GERD (gastroesophageal reflux disease) MELISSA (obstructive sleep apnea) per PCP not using CPAP 01/20/23 RH Surgical History Status post bilateral below knee amputation History of bilateral cataract extraction 1999 H/O sinus surgery 2010 History of cardiac catheterization 2005 History of appendectomy 2013 History of colonoscopy (~10/2020) History of below-knee amputation of both lower extremities 2000 and 2010 Hx of amputation below knee Kidney transplant recipient 01/08/2014 EGD - MAC (04/02/16) Colonoscopy - MAC (02/01/17) Family History Father , cancer at 64 No problems noted. Brother , SM Cell Cancer No problems noted. Sister Breast cancer Mother No problems noted. Social History Smoking/Tobacco Use Status: Former Tobacco Use Quit Date: 07/25/90 Tobacco: How many years used: 15 Smoking risk assessment performed?: Yes Alcohol Intake: never Drug use: Never Substance use type: does not use Household members: spouse Housing: house What is your relationship status?: Panel score (0-1 are the most socially isolated patients): 1 Do you feel safe at home: Yes Do you feel safe in your relationship?: Yes
[2025-05-24 12:54] LABS: Platelet Count 94 10^3/uL (130-400)
[2025-05-24] MEDS: Lactated Ringers 1,000 ML 1000 ML IV (12:55)
[2025-05-24 13:12] LABS: ALT 15 U/L (16-63); AST 17 U/L (15-37); Albumin 1.7 g/dL (3.4-5.0); Alkaline Phosphatase 407 U/L (46-116); Anion Gap 15.6 mmol/L (3-11); Bilirubin, Total 0.4 mg/dL (0.2-1.0); CO2 17.4 mmol/L (21.0-32.0); Calcium 8.7 mg/dL (8.5-10.1); Chloride 95 mmol/L (98-107); Glucose 164 mg/dL (74-106); Lipase 9 U/L (<78); Magnesium 1.8 mg/dL (1.8-2.4); Potassium 4.4 mmol/L (3.5-5.1); Sodium 128 mmol/L (136-145); Total Protein 6.2 g/dL (6.4-8.2); Troponin I 27 ng/L (<or=76)
[2025-05-24 13:22] LABS: BUN 108 mg/dL (7-18)
[2025-05-24 13:46] LABS: Glucose Negative (Negative)
[2025-05-24 13:58] LABS: C & S Indicated? Yes; WBC >50 HPF (0-5)
[2025-05-24 14:01] LABS: Troponin I 24 ng/L (<or=76)
[2025-05-24] MEDS: cefTRIAXone 1 GM/50 ML BAG IVPB (15:00)
[2025-05-24] MEDS: Albuterol/Ipratropium 3 ML UPD VIAL UPD (16:06)
[2025-05-24] MEDS: Lidocaine 2% Jelly 11 ML SYR (16:20)
--- NOTE | 2025-05-24 17:11 | NUR.NOTE ---
Nursing Note:Family provided home medications Cellcept and Proraf which are not typically available from pharmacy. These medications were delivered to pharmacy, and Dr. Warner made aware of dosing for orders to be placed.
--- NOTE | 2025-05-24 17:43 | W.PM.HP.N ---
Date of service: 05/24/25 Time of Service: 17:43 Assessment and Plan Assessment and plan (1) Urinary tract infection: Status: Acute Assessment and plan: Urine cultures are pending Chang catheter was exchanged today Started on ceftriaxone day 1 (2) Diarrhea: Status: Acute Assessment and plan: Admitted from May 04 through May 08 for diarrhea or illness with acute dehydration. All fecal pathogen testing was negative Symptoms improved on loperamide He was seen outpatient in general surgery's office for referral for consideration of colonoscopy. It was noted that he was at high risk in terms of preprocedural complications from maintaining adequate hydration and at high risk for worsening kidney injury secondary to bowel prep and that the diagnostic yield of a colonoscopy for diarrhea itself is quite low. Plan was for less invasive testing at this point with no recommendations for colonoscopy It was recommended that he continue to take Lomotil 4 times daily and to reduce dosing as loose stools improved. (3) Abnormal computed tomography of abdomen and pelvis: Status: Acute Assessment and plan: concern for liver masses, renal mass suspicious of neoplasm, RML/LLL lung nodules, abd pelvic ascites, enlarged prostate, gallstones - previous recommendation for f/u MRI and hemo/onc consultation pending - need for biopsy for diagnostic clarification he wants to know if cancerous DH Heme/Onc referral placed last admission by palliative goals of care discussed at that time, to remain full code for now. would consider hospice referral is appropriate. palliative care consult placed for continuity (4) Enlarged prostate: Status: Acute Assessment and plan: was started tamsulosin (5) Acute kidney injury superimposed on chronic kidney disease: Status: Acute Assessment and plan: no symptoms of fluid overload or electrolyte abnormality and voiding well avoid nephrotoxic drugs, renal dosing as needed monitor I&O closely daily weights daily electrolytes and kidney function monitoring (6) Atrial fibrillation: Status: Chronic (7) Diabetes mellitus: Status: Acute Assessment and plan: diabetic diet sliding scale with coverage AC hemoglobin A1C 6.9 earlier this month will give reduced basal insulin for now, 35 units (home 70) adjust as needed. (8) Kidney transplant recipient: Status: Chronic Assessment and plan: Continue home medications, mycophenolate and tacrolimus Tacrolimus level 7.8 on 05/04/25 (9) LEFT FOREARM AV FISTULA: Status: None Assessment and plan: Not currently on dialysis discussed with DR Warner History of Present Illness Narrative: This is a 70-year-old male patient recently hospitalized for acute on chronic kidney injury due to acute dehydration from diarrhea who was discharged back to home after symptoms improved. He has a complex past medical history including kidney transplant, stage V chronic kidney disease with a left AV fistula in place for anticipated hemodialysis, diabetes mellitus type 2, liver mass awaiting biopsy, suspicion of a renal cell carcinoma, new lung nodules. He was seen by palliative on that hospitalization as these findings were incidentally found on imaging on admission. He is pending further outpatient workup at [facility]. Review of Systems All systems reviewed & are unremarkable except as noted in HPI and below PFSH All Active Problems (Updated 05/09/25 @ 00:03 by LYLA LUNA) Diarrhea (Acute) Urinary tract infection (Acute) Kidney mass (Acute) Liver mass (Acute) Atrial flutter (Acute) CKD (chronic kidney disease), stage V (Acute) Catheter-associated urinary tract infection (Acute) Lung nodule, multiple (Acute) Abnormal chest xray (Acute) Abnormal computed tomography of abdomen and pelvis (Acute) Liver mass (Acute) Enlarged prostate (Acute) Cyst of left kidney (Acute) CKD (chronic kidney disease) (Chronic) History of pneumonia (Acute) Cough (Acute) Pneumonia (Acute) Anemia (Chronic) CAP (community acquired pneumonia) (Acute) Basal cell carcinoma (Acute) Delayed wound healing (Acute ~2019) burn left arm happened 2019 fistula near wound Abnormal electrocardiogram (Acute) Phantom pain (Acute) Tremor (Acute) per pCP treated with primidone RH HTN (hypertension) (Chronic) Diabetes mellitus (Acute) Edentulous (Acute) Esophageal foreign body (Acute) Food impaction of esophagus (Acute) Macrocytic anemia (Acute) Gastroparesis diabeticorum (Acute) COPD (chronic obstructive pulmonary disease) (Chronic) stage 3 severe 01/20/23 RH Chronic kidney disease (Chronic) Hypertension (Chronic) Hyperlipidemia (Chronic) CAD (coronary artery disease) (Chronic) GERD (gastroesophageal reflux disease) (Chronic) Asthma (Chronic) Chronic anxiety (Chronic) Chronic depression (Chronic) Intention tremor (Chronic) Status post appendectomy (Acute) Physical medicine and rehabilitation procedures (Acute 06/27/13) Dysphagia (Acute) CHF (congestive heart failure) (Acute) Diastolic CHF (Acute) Acute kidney injury superimposed on chronic kidney disease (Acute) Uncontrolled insulin dependent diabetes mellitus (Acute) Ambulatory dysfunction (Acute) Wenckebach second degree AV block (Acute) Fluid level behind tympanic membrane of left ear (Acute) Sensory hearing loss, bilateral (Acute) Tinnitus, bilateral (Acute) Osteoma of ear canal (Acute) Atrial fibrillation (Chronic) per pcp Pt had one episode 11/10 RH Kidney transplant recipient (Chronic) 2005 Medical History Left lower lobe pneumonia Sepsis CAP (community acquired pneumonia) Infection of amputation stump of right lower extremity Tubular adenoma of colon (02/01/17) Abscess of axilla (05/11/13) Personal history of allergy to other antibiotic agent Vitamin B 12 deficiency Adenomatous colon polyp History of colon polyps Lumbar back pain Erectile dysfunction Anxiety and depression Hydrocele Intention tremor Tricuspid insufficiency Obesity Stage 3 severe COPD by GOLD classification Hyperlipidemia Sciatica GERD (gastroesophageal reflux disease) MELISSA (obstructive sleep apnea) per PCP not using CPAP 01/20/23 Surgical History Status post bilateral below knee amputation History of bilateral cataract extraction 1999 H/O sinus surgery 2010 History of cardiac catheterization 2005 History of appendectomy 2012 History of colonoscopy (~10/2020) History of below-knee amputation of both lower extremities 2000 and 2010 Hx of amputation below knee Kidney transplant recipient 01/08/2014 EGD - MAC (04/02/16) Colonoscopy - MAC (02/01/17) Family History Father , cancer at 64 No problems noted. Brother , SM Cell Cancer No problems noted. Sister Breast cancer Mother No problems noted. Social History Smoking/Tobacco Use Status: Former Tobacco Use Quit Date: 07/25/90 Tobacco: How many years used: 15 Smoking risk assessment performed?: Yes Alcohol Intake: never Drug use: Never Substance use type: does not use Household members: spouse Housing: house What is your relationship status?: Panel score (0-1 are the most socially isolated patients): 1 Do you feel safe at home: Yes Do you feel safe in your relationship?: Yes Meds Allergies and Home Medications Allergies Allergy/AdvReac Type Severity Reaction Status Date / Time levofloxacin Allergy Mild Unknown Verified 05/24/25 12:13 sulfamethoxazole (From Allergy Mild Unknown Verified 05/24/25 12:13 Bactrim) trimethoprim (From Bactrim) Allergy Mild Unknown Verified 05/24/25 12:13 doxycycline Allergy Unknown Other (See Verified 05/24/25 12:13 Comment) tree nut Allergy Unknown Other (See Verified 05/24/25 12:13 Comment) clindamycin Allergy Skin Rash Verified 05/24/25 12:13 ibuprofen Allergy Other (See Verified 05/24/25 12:13 Comment) Penicillins Allergy SWELLING Verified 05/24/25 12:13 lisinopril AdvReac KIDNEY Verified 05/24/25 12:13 SHUT DOWN yaneth inhibitors Allergy Mild Skin Rash Uncoded 05/24/25 12:13 CATS & BIRDS AdvReac Intermediate WHEEZING Uncoded 05/24/25 12:13 Home Medications Medication Instructions Recorded Confirmed Type aspirin 81 mg tablet,delayed 81 mg PO HS 10/31/12 05/24/25 History release ([place] Low Dose Aspirin) montelukast 10 mg tablet 10 mg PO HS 10/31/12 05/24/25 History multivitamin (Daily Multi-Vitamin 1 ea PO DAILY 05/10/13 05/24/25 History tablet) Held on 05/08/25. Instructions: Resume on 05/22/25. MVI with vitamin C- Discuss resumption with PCP in the setting of diarrhea folic acid 1 mg tablet 1 mg PO DAILY 06/12/18 05/24/25 History fluticasone propionate 50 1 spray intranasal DAILY 09/04/20 05/24/25 History mcg/actuation nasal spray,suspension tacrolimus 1 mg capsule, 1 mg PO Q12H 09/04/20 05/24/25 History immediate-release (Prograf) vitamin B complex (B 1 tab PO BID 09/04/20 05/24/25 History Complex-Vitamin B12 tablet) Held on 05/08/25. Instructions: Resume on 05/15/25. Discuss with PCP re: diarrhea calcitriol 0.25 mcg capsule 0.5 mcg PO DAILY 04/14/21 05/24/25 History mycophenolate mofetil 250 mg 500 mg PO BID 04/14/21 05/24/25 History capsule (CellCept) Inhaler, Assist Devices [Pocket 1 ea miscellaneous DIRECTED ##0 01/16/23 05/24/25 Rx Chamber] sodium bicarbonate 650 mg tablet 1,300 mg PO BID 01/24/23 05/24/25 History acetaminophen 325 mg capsule 650 mg PO Q6H PRN 10/19/23 05/24/25 History amlodipine 10 mg tablet 10 mg PO DAILY 10/19/23 05/24/25 History atorvastatin 20 mg tablet 20 mg PO DAILY 10/19/23 05/24/25 History chlorthalidone 25 mg tablet 25 mg PO DAILY 10/19/23 05/24/25 History darbepoetin cristy in polysorbat 200 300 mcg subcut .14 days 10/19/23 05/24/25 History mcg/mL in polysorbate injection (Aranesp) insulin glargine U-300 conc 300 70 unit subcut DAILY 10/19/23 05/24/25 History unit/mL (3 mL) subcutaneous pen (Toujeo Max U-300 SoloStar) mecobalamin (vitamin B12) 1,000 1,000 mcg PO DAILY 10/19/23 05/24/25 History mcg chewable tablet primidone 50 mg tablet 150 mg PO BID 10/19/23 05/24/25 History torsemide 20 mg tablet 40 mg PO DAILY 10/19/23 05/24/25 History Held on 05/06/25. Instructions: Resume on 05/13/25. Resume as per PCP renal function ipratropium 0.5 mg-albuterol 3 mg 3 ml inhalation Q6H PRN Wheezing 12/16/23 05/24/25 Rx (2.5 mg base)/3 mL nebulization #24 units soln levalbuterol tartrate 45 2 inh inhalation Q6H PRN #15 grams 12/16/23 05/24/25 Rx mcg/actuation aerosol inhaler carvedilol 6.25 mg tablet 12.5 mg PO BID 12/19/24 05/24/25 History mupirocin calcium 2 % topical cream 1 applic topical TID #30 grams 12/19/24 05/24/25 Rx prednisone 5 mg tablet 5 mg PO DIRECTED #49 tabs 12/19/24 05/24/25 Rx Held on 05/08/25. Instructions: Resume on 05/22/25. Discuss with PCP colestipol 1 gram tablet 1 g PO DAILY 05/04/25 05/24/25 History ondansetron HCl 4 mg tablet 4 mg PO DAILY 05/04/25 05/24/25 History primidone 125 mg tablet 125 mg PO QHS 05/04/25 05/24/25 History primidone 250 mg tablet 250 mg PO QHS 05/04/25 05/24/25 History triamcinolone acetonide 0.1 % 1 applic topical DAILY 05/04/25 05/24/25 History topical cream loperamide 2 mg capsule 2 mg PO QID PRN #30 caps 05/06/25 05/24/25 Rx (Anti-Diarrheal (loperamide)) tamsulosin 0.4 mg capsule 0.4 mg PO DAILY #30 caps 05/06/25 05/24/25 Rx prochlorperazine maleate 10 mg 10 mg PO Q6H PRN nausea and 05/08/25 05/24/25 Rx tablet vomiting #20 tabs prochlorperazine maleate 5 mg 5 mg PO Q8H #15 tabs 05/08/25 05/24/25 Rx tablet Exam Narrative Exam Narrative: Chronically ill-appearing male older than stated age head is atraumatic eyes nonicteric noninjected oral mucosa is slightly dry skin is pale warm and dry cardiovascular regular rate and rhythm respirations even and unlabored abdomen is slightly distended guarding soft tender generalized, moves all extremities equally neurologic he is awake alert oriented no focal deficits psychiatric appropriate mood and affect Results Labs 05/25/25 06:12 05/25/25 06:12 Labs: Laboratory Results - last 24 hr 05/24/25 05/24/25 12:30 13:33 WBC 3.66 L RBC 2.67 L Hgb 8.0 L Hct 25.9 L MCV 97 H MCH 30.0 MCHC 30.9 L RDW 14.6 H Plt Count 94 L MPV 9.6 Immature Gran % 0.3 Neutrophils % 55.5 Lymphocytes % 36.6 Monocytes % 6.8 Eosinophils % 0.8 Basophils % 0.0 Nucleated RBC % 0.0 Absolute Neutrophils 2.03 Absolute Lymphocytes 1.34 Absolute Monocytes 0.25 Absolute Eosinophils 0.03 Absolute Basophils 0.00 VBG Lactate 1.2 Sodium 128 L Potassium 4.4 Chloride 95 L Carbon Dioxide 17.4 L Anion Gap 15.6 H BUN 108 H* Creatinine 6.6 H* Est GFR (CKD-EPI 2020) 8.31 Glucose 164 H Calcium 8.7 Magnesium 1.8 Total Bilirubin 0.4 AST 17 ALT 15 L Alkaline Phosphatase 407 H Troponin I 27 24 Total Protein 6.2 L Albumin 1.7 L Lipase 9 Urine Color Yellow Urine Clarity Turbid Urine pH 5.5 Ur Specific [place] 1.020 Urine Protein >=300 H Urine Ketones Negative Urine Blood Moderate H Urine Nitrite Negative Urine Bilirubin Negative Urine Urobilinogen 0.2 Ur Leukocyte Esterase Small H Urine RBC Not Applicable Urine WBC >50 H Ur Epithelial Cells Not Applicable Urine Crystals Not Applicable Urine Bacteria Not Applicable Urine Mucus Not Applicable Ur Culture Indicated? Yes Urine Glucose Negative Last Vital Signs Temp 37 C 05/24/25 16:02 Pulse 83 05/24/25 16:06 Resp 23 05/24/25 16:06 BP 124/73 05/24/25 16:02 Pulse Ox 92 05/24/25 16:06 Time Spent Time spent with Patient: 55-74 minutes Time was spent: preparing to see the patient(eg.review tests), obtaining and/or reviewing separately otained hiistory, ordering medications,tests, procedures, indepentently interpreting results and counseling the patient
[2025-05-24] MEDS: SODIUM BICARBONATE 150 MEQ in DEXTROSE 5%-WATER 850 ML 100 MEQ IV (17:47)
[2025-05-24 18:45] LABS: Anion Gap 14.1 mmol/L (3-11); CO2 18.9 mmol/L (21.0-32.0); Calcium 8.7 mg/dL (8.5-10.1); Chloride 95 mmol/L (98-107); Glucose 194 mg/dL (74-106); Potassium 4.1 mmol/L (3.5-5.1); Sodium 128 mmol/L (136-145)
[2025-05-24 18:47] LABS: BUN 107 mg/dL (7-18)
[2025-05-24 18:51] LABS: Troponin I 26 ng/L (<or=76)
--- NOTE | 2025-05-24 18:56 | W.PC.ACHO ---
Registration Status: ADM IN Primary Language: Preferred Language: Albanian ED Information & Data Chief Complaint AMS/LOC 05/24/25 12:45 Triage Note pt sent from home for 05/24/25 12:03 altered mental status weakness and cloudy urine onset yestrerday Medical / Surgical History (Updated 05/24/25 @ 18:12 by Shandra Jiménez NP) Nausea ACP (advance care planning) Palliative care encounter Hypoalbuminemia Thrombocytopenia Leukopenia MELISSA (obstructive sleep apnea) Left lower lobe pneumonia Sepsis Infection of amputation stump of right lower extremity Tubular adenoma of colon (02/01/17) Abscess of axilla (05/11/13) Personal history of allergy to other antibiotic agent Vitamin B 12 deficiency Adenomatous colon polyp History of colon polyps Lumbar back pain Erectile dysfunction Anxiety and depression Hydrocele Intention tremor Tricuspid insufficiency Obesity Stage 3 severe COPD by GOLD classification Hyperlipidemia Sciatica GERD (gastroesophageal reflux disease) MELISSA (obstructive sleep apnea) (Updated 05/09/25 @ 00:03 by LYLA LUNA) Kidney transplant recipient Status post bilateral below knee amputation History of bilateral cataract extraction H/O sinus surgery History of cardiac catheterization History of appendectomy History of colonoscopy (~10/2020) History of below-knee amputation of both lower extremities Hx of amputation below knee Kidney transplant recipient EGD - MAC (04/02/16) Colonoscopy - MAC (02/01/17) Most Recent Vital Signs Temperature 37 C 05/24/25 16:02 Pulse 83 05/24/25 18:16 Pulse 78 05/24/25 18:16 Respiratory Rate 14 05/24/25 18:16 Respiratory Effort Normal 05/24/25 13:38 Respiratory Depth Normal 05/24/25 13:38 Respiratory Pattern Normal 05/24/25 13:38 Blood Pressure 142/50 H 05/24/25 18:16 Blood Pressure Mean 83 05/24/25 18:16 Pulse Oximetry 100 05/24/25 18:16 Oxygen Delivery Method Room Air 05/24/25 16:06 Oxygen Flow Rate 0 05/24/25 16:06 Pain Level 0 05/24/25 13:38 Allergies levofloxacin Allergy (Mild, Verified 05/24/25 12:13) Unknown sulfamethoxazole (From Bactrim) Allergy (Mild, Verified 05/24/25 12:13) Unknown trimethoprim (From Bactrim) Allergy (Mild, Verified 05/24/25 12:13) Unknown doxycycline Allergy (Unknown, Verified 05/24/25 12:13) Other (See Comment) tree nut Allergy (Unknown, Verified 05/24/25 12:13) Other (See Comment) clindamycin Allergy (Verified 05/24/25 12:13) Skin Rash ibuprofen Allergy (Verified 05/24/25 12:13) Other (See Comment) Penicillins Allergy (Verified 05/24/25 12:13) SWELLING lisinopril Adverse Reaction (Verified 05/24/25 12:13) KIDNEY SHUT DOWN yaneth inhibitors Allergy (Mild, Uncoded 05/24/25 12:13) Skin Rash CATS & BIRDS Adverse Reaction (Intermediate, Uncoded 05/24/25 12:13) WHEEZING Active Medications Generic Name Dose Route Start Last Admin Trade Name Freq PRN Reason Stop Dose Admin Sodium Bicarbonate 150 meq/ 1,000 mls @ 100 mls/hr 05/24/25 18:00 05/24/25 17:47 Dextrose/Water IV 100 mls/hr INFUSION EVE Administration Prochlorperazine Maleate 5 mg 05/24/25 18:51 05/24/25 18:55 Prochlorperazine 5 Mg Tab PO Not Given Q8H EVE IV IV Catheter Type [Right Peripheral IV Antecubital] Diet Orders Category Date Time Status Diabetes Consistent CHO [DIET] Nutrition 05/24/25 Dinner Active Diagnostics 05/24/25 05/24/25 05/24/25 Range/Units 18:20 13:33 12:30 WBC 3.66 L (4.4-10.8) 10^3/uL RBC 2.67 L (4.36-5.78) 10^6/uL Hgb 8.0 L (13.5-17.5) g/dL Hct 25.9 L (40.0-50.0) % MCV 97 H (80-95) fL MCH 30.0 (27.0-33.0) pg MCHC 30.9 L (32.0-36.0) % RDW 14.6 H (11.8-14.1) % Plt Count 94 L (130-400) 10^3/uL MPV 9.6 (8.0-11.0) fL Immature Gran % 0.3 % Neutrophils % 55.5 % Lymphocytes % 36.6 % Monocytes % 6.8 % Eosinophils % 0.8 % Basophils % 0.0 % Nucleated RBC % 0.0 (0.0-0.3) % Absolute Neutrophils 2.03 (1.2-6.7) 10^3/uL Absolute Lymphocytes 1.34 (1.2-3.4) 10^3/uL Absolute Monocytes 0.25 (0.1-0.8) 10^3/uL Absolute Eosinophils 0.03 (0.0-0.7) 10^3/uL Absolute Basophils 0.00 (0.0-0.2) 10^3/uL VBG Lactate 1.2 (<or=2.0) mmol/L Sodium 128 L 128 L (136-145) mmol/L Potassium 4.1 4.4 (3.5-5.1) mmol/L Chloride 95 L 95 L (98-107) mmol/L Carbon Dioxide 18.9 L 17.4 L (21.0-32.0) mmol/L Anion Gap 14.1 H 15.6 H (3-11) mmol/L BUN 107 H* 108 H* (7-18) mg/dL Creatinine 6.5 H* 6.6 H* (0.70-1.30) mg/dL Est GFR (CKD-EPI 2020) 8.46 8.31 (mL/min/1.73m2) Glucose 194 H 164 H (74-106) mg/dL Calcium 8.7 8.7 (8.5-10.1) mg/dL Magnesium 1.8 (1.8-2.4) mg/dL Total Bilirubin 0.4 (0.2-1.0) mg/dL AST 17 (15-37) U/L ALT 15 L (16-63) U/L Alkaline Phosphatase 407 H (46-116) U/L Troponin I 26 24 27 (<or=76) ng/L Total Protein 6.2 L (6.4-8.2) g/dL Albumin 1.7 L (3.4-5.0) g/dL Lipase 9 (<78) U/L Urine Color Yellow (Yellow) Urine Clarity Turbid (Clear) Urine pH 5.5 (5-8) Ur Specific [place] 1.020 (1.005-1.025) Urine Protein >=300 H (Neg-Trace) mg/dL Urine Ketones Negative (Negative) mg/dL Urine Blood Moderate H (Negative) Urine Nitrite Negative (Negative) Urine Bilirubin Negative (Negative) Urine Urobilinogen 0.2 (Up to 0.2) mg/dL Ur Leukocyte Esterase Small H (Negative) Urine RBC Not Applicable Urine WBC >50 H (0-5) HPF Ur Epithelial Cells Not Applicable Urine Crystals Not Applicable Urine Bacteria Not Applicable Urine Mucus Not Applicable Ur Culture Indicated? Yes Urine Glucose Negative (Negative) mg/dL 05/24/25 13:33 Urine Culture - Pending Urine - Reflex from Ua Intake and Output - 24 Hour Total 05/24/25 11:52 thru 05/24/25 16:00 Intake Total 1050 Balance 1050 Weight 102.058 kg Intake: IV 1050 Other: Urine Appearance Cloudy Sediment Urinary Catheter Urinary Catheter Date of 05/24/25 Insertion [Urethral (Chang)] Time of insertion [Urethral ( 16:00 Chang)] Falls Risk Assessment History of Falls Previous History 05/24/25 13:39 Contributing Factors Unstable,Impairments, 05/24/25 13:39 Incontinence,Medications Ambulatory Aids Uses ambulatory device + 05/24/25 13:39 Tubes/Lines With any additional score 05/24/25 13:39 Gait Evaluation W/any additional score 05/24/25 13:39 Cognition No cognitive impairment 05/24/25 13:39 Fall Total Score 97 05/24/25 13:39 Level of Risk Maximum Risk 05/24/25 13:39 Problems (Updated 05/09/25 @ 00:03 by LYLA LUNA) Diarrhea (Acute) Urinary tract infection (Acute) Abnormal computed tomography of abdomen and pelvis (Acute) Enlarged prostate (Acute) Diabetes mellitus (Acute) Acute kidney injury superimposed on chronic kidney disease (Acute) Atrial fibrillation (Chronic) Kidney transplant recipient (Chronic) Notes 05/24/25 17:11 Nursing Notes by Lulú Vazquez Nursing Note:Family provided home medications Cellcept and Proraf which are not typically available from pharmacy. These medications were delivered to pharmacy, and Dr. Warner made aware of dosing for orders to be placed. Initialized on 05/24/25 17:11 - END OF NOTE v v v v v v v v v Sending and/or Receiving Nurses: Please use comment section below to note any information pertinent to the patient hand-off not included above. Information / Comments: pt arrived to unit at 18:40. Report received from: Cheikh @[id number]
[2025-05-24 19:48] LABS: Lab Add On Test DONE
[2025-05-24] MEDS: Montelukast 10 MG TAB PO (20:50)
[2025-05-24] MEDS: Sodium Bicarbonate 650 MG TAB 1300 MG PO (20:51)
[2025-05-24] MEDS: Primidone 50 MG TAB 125 MG PO (20:51)
[2025-05-24] MEDS: Primidone 250 MG TAB PO (20:51)
[2025-05-24] MEDS: Vitamins B Comp w/C TAB 1 TAB PO (20:51)
[2025-05-24] MEDS: Aspirin E.C. 81 MG TABEC PO (20:52)
[2025-05-24] MEDS: Mycophenolate Mofetil 250 MG CAP 500 MG PO (20:52)
[2025-05-24] MEDS: Carvedilol 6.25 MG TAB 12.5 MG PO (20:52)
[2025-05-24] MEDS: Tacrolimus 0.5 MG CAP 1 MG PO (20:52)
[2025-05-24] MEDS: Prochlorperazine 5 MG TAB PO (20:57)
[2025-05-25] MEDS: Acetaminophen 325 MG TAB 650 MG PO (01:06)
[2025-05-25 02:57] VITALS: BP 139/71; PULSE 67; RESP 15; TEMP 36.4; O2SAT 100
[2025-05-25] MEDS: Prochlorperazine 5 MG TAB PO ×3 (03:43→18:41)
[2025-05-25] MEDS: SODIUM BICARBONATE 150 MEQ in DEXTROSE 5%-WATER 850 ML 100 MEQ IV (04:01)
[2025-05-25 06:39] LABS: Abs Immature Grans 0.02 10^3/uL (0.0-0.06); HCT 23.5 % (40.0-50.0); HGB 7.4 g/dL (13.5-17.5); Immature Grans % 0.6 %; MCH 30.3 pg (27.0-33.0); MCHC 31.5 % (32.0-36.0); MCV 96 fL (80-95); MPV 10.0 fL (8.0-11.0); RBC 2.44 10^6/uL (4.36-5.78); RDW 14.3 % (11.8-14.1); RDW-SD 50.8 fL; WBC 3.35 10^3/uL (4.4-10.8)
[2025-05-25 06:57] LABS: Platelet Count 95 10^3/uL (130-400)
[2025-05-25 07:04] LABS: Anion Gap 14.9 mmol/L (3-11); CO2 19.1 mmol/L (21.0-32.0); Calcium 8.4 mg/dL (8.5-10.1); Chloride 95 mmol/L (98-107); Glucose 178 mg/dL (74-106); Magnesium 1.7 mg/dL (1.8-2.4); Potassium 4.0 mmol/L (3.5-5.1); Sodium 129 mmol/L (136-145)
[2025-05-25 07:09] LABS: BUN 103 mg/dL (7-18)
[2025-05-25 08:13] VITALS: BP 146/72; PULSE 88; RESP 16; TEMP 36.6; O2SAT 100
[2025-05-25] MEDS: Insulin Aspart 300 UNITS/3 ML PEN SC ×2 (08:29→12:07)
[2025-05-25] MEDS: Insulin Glargine 300 UNITS/3 ML PEN 48 UNITS SC (08:30)
[2025-05-25] MEDS: Sodium Bicarbonate 650 MG TAB 1300 MG PO ×2 (09:27→20:00)
[2025-05-25] MEDS: Calcitriol 0.25 MCG CAP 0.5 MCG PO (09:27)
[2025-05-25] MEDS: Tamsulosin 0.4 MG CAPCR PO (09:28)
[2025-05-25] MEDS: Mycophenolate Mofetil 250 MG CAP 500 MG PO ×2 (09:28→19:59)
[2025-05-25] MEDS: Tacrolimus 0.5 MG CAP 1 MG PO ×2 (09:28→20:00)
[2025-05-25] MEDS: amLODIPine 10 MG TAB PO (09:28)
[2025-05-25] MEDS: Cyanocobalamin 500 MCG TAB 1000 MCG PO (09:28)
[2025-05-25] MEDS: Multivitamin TAB 1 TAB PO (09:29)
[2025-05-25] MEDS: Carvedilol 6.25 MG TAB 12.5 MG PO ×2 (09:29→20:00)
[2025-05-25] MEDS: Ondansetron O.D.T. 4 MG TABEF PO (09:29)
--- NOTE | 2025-05-25 09:47 | PT.INIE ---
PT Notes Visit Reasons: Myron-Weakness Inpatient Physical Therapy Evaluation Date: [05/25/2025] Referring Doctor: [Enriqueta Jiménez] PT Orders: PT CONSULT: [Pt evaluation] Precautions: [Standard, fall] Patient Profile/Admitting Diagnosis: []70-year-old male patient recently hospitalized for acute on chronic kidney injury due to acute dehydration from diarrhea who was discharged back to home after symptoms improved. He has a complex past medical history including kidney transplant, stage V chronic kidney disease with a left AV fistula in place for anticipated hemodialysis, diabetes mellitus type 2, liver mass awaiting biopsy, suspicion of a renal cell carcinoma, new lung nodules. He presented to the ED 05/24/25 with c/o general weakness and cloudy urine. PMHX: []All Active Problems (Updated 05/09/25 @ 00:03 by LYLA LUNA) Kidney mass (Acute) Liver mass (Acute) Atrial flutter (Acute) CKD (chronic kidney disease), stage V (Acute) Catheter-associated urinary tract infection (Acute) Lung nodule, multiple (Acute) Abnormal chest xray (Acute) Abnormal computed tomography of abdomen and pelvis (Acute) Liver mass (Acute) Enlarged prostate (Acute) Cyst of left kidney (Acute) CKD (chronic kidney disease) (Chronic) History of pneumonia (Acute) Cough (Acute) Pneumonia (Acute) Anemia (Chronic) CAP (community acquired pneumonia) (Acute) Basal cell carcinoma (Acute) Delayed wound healing (Acute ~2019) burn left arm happened 2019 fistula near woundAbnormal electrocardiogram (Acute) Phantom pain (Acute) Tremor (Acute) per pCP treated with primidone RHHTN (hypertension) (Chronic) Diabetes mellitus (Acute) Edentulous (Acute) Esophageal foreign body (Acute) Food impaction of esophagus (Acute) Macrocytic anemia (Acute) Gastroparesis diabeticorum (Acute) Chronic kidney disease (Chronic) Hypertension (Chronic) Hyperlipidemia (Chronic) CAD (coronary artery disease) (Chronic) GERD (gastroesophageal reflux disease) (Chronic) Asthma (Chronic) Chronic anxiety (Chronic) Chronic depression (Chronic) Intention tremor (Chronic) Status post appendectomy (Acute) Physical medicine and rehabilitation procedures (Acute 06/27/13) Dysphagia (Acute) CHF (congestive heart failure) (Acute) Diastolic CHF (Acute) Acute kidney injury superimposed on chronic kidney disease (Acute) Uncontrolled insulin dependent diabetes mellitus (Acute) Ambulatory dysfunction (Acute) Wenckebach second degree AV block (Acute) Fluid level behind tympanic membrane of left ear (Acute) Sensory hearing loss, bilateral (Acute) Tinnitus, bilateral (Acute) Osteoma of ear canal (Acute) Atrial fibrillation (Chronic) per pcp Pt had one episode 11/10 RHKidney transplant recipient (Chronic) 2006 Medical History Left lower lobe pneumonia Sepsis CAP (community acquired pneumonia) Infection of amputation stump of right lower extremity Tubular adenoma of colon (02/01/17) Abscess of axilla (05/11/13) Personal history of allergy to other antibiotic agent Vitamin B 12 deficiency Adenomatous colon polyp History of colon polyps Lumbar back pain Erectile dysfunction Anxiety and depression Hydrocele Intention tremor Tricuspid insufficiency Obesity Stage 3 severe COPD by GOLD classification Hyperlipidemia Sciatica GERD (gastroesophageal reflux disease) MELISSA (obstructive sleep apnea) per PCP not using CPAP 01/20/23 Surgical History Status post bilateral below knee amputation History of bilateral cataract extraction 2000H/O sinus surgery 2010History of cardiac catheterization 2005History of appendectomy 2013History of colonoscopy (~10/2020) History of below-knee amputation of both lower extremities 2000 and 2010Hx of amputation below knee Kidney transplant recipient 01/08/2014EGD - MAC (04/02/16) Colonoscopy - MAC (02/01/17) Social History/Home Situation: [] Current Functional Limitations: [] Equipment Owned/DME: [] Subjective: [] Objective: [] General Observation: [] Mental Status: [] Pain: [] Vital Signs: [] ROM: Right Upper Extremity: [] Left Upper Extremity: [] Right Lower Extremity: [] Left Lower Extremity: [] Strength: Right Upper Extremity: [] Left Upper Extremity: [] Right Lower Extremity: [] Left Lower Extremity: [] Sensation: [] Bed Mobility/Transfers: [] Gait: [] Balance: [] Static Sitting: [] Dynamic Sitting: [] Static Standing: [] Dynamic Standing: [] Special Tests: Mobility Limitations Standardized Measure [facility] AM-PAC 6 clicks Basic Mobility Inpatient Short Form: Raw Score: [] Standardized Score: [] CMS Score: [] Informed Consent/Education: Patient instructed in purpose of PT consult and plan of care. Assessment: Patient is a [] year old [] referred to physical therapy services with the diagnosis of []. Patient presents with clinical signs and symptoms consistent with [], as demonstrated by the following impairment level findings: []. Impairments are contributing to the following functional limitations: AMPAC score. Patient is assessed as a [] Low 01416 [] Moderate 23173 [] High 76048 complexity based on the following: History: [] Examination: [] Presentation: [] Decision Making: [] Goals: Goals X1 week 1. Supine-Sit [] 2. Sit-Supine [] 3. Sit-Stand [] 4. Stand-Sit [] 5. Bed-Chair [] 6. Chair-Bed [] 7. Gait [] 8. Stairs [] 9. Independent with home exercise program [] 10. Balance [] Plan of Care/Treatment Plan: 1-2x/day, 7 days/week x 1 week. Plan of care has been reviewed with the DIRECTOR OF SALES AND MARKETING providing the service under Physical Therapy direction. Initiate Physical Therapy intervention for strengthening, bed mobility, transfers, gait, stairs, balance training, use of assistive device. DISCHARGE RECOMMENDATIONS: [] [] Home with no services [] [] Home with services [specify] [] Home with outpatient PT [] [] SNF for continued rehabilitation [] [] Senior Living Care [] [] SNF versus LTC based on ability to participate and progress [] TREATMENT CODE/TIME: []
[2025-05-25] MEDS: Loperamide 2 MG CAP PO ×2 (10:46→20:11)
[2025-05-25] MEDS: Vitamins B Comp w/C TAB 1 TAB PO ×2 (10:47→20:01)
[2025-05-25] MEDS: Colestipol 1 GM TAB PO (10:47)
[2025-05-25 12:55] VITALS: PULSE 48; RESP 16; O2SAT 96
[2025-05-25] MEDS: Albuterol/Ipratropium 3 ML UPD VIAL IH (12:55)
[2025-05-25 13:04] VITALS: PULSE 50
--- NOTE | 2025-05-25 13:50 | W.PM.PROGNOT ---
Date of Service Date of service: 05/25/25 Time of Service: 13:50 Assessment and Plan Assessment and plan (1) Urinary tract infection: Status: Acute Assessment and plan: Urine cultures are pending Chang catheter was exchanged in ED continue ceftriaxone day 2 while culture pending (2) Diarrhea: Status: Acute Assessment and plan: Admitted from May 04 through May 08 for diarrhea or illness with acute dehydration. All fecal pathogen testing was negative Symptoms improved on loperamide He was seen outpatient in general surgery's office for referral for consideration of colonoscopy. It was noted that he was at high risk in terms of preprocedural complications from maintaining adequate hydration and at high risk for worsening kidney injury secondary to bowel prep and that the diagnostic yield of a colonoscopy for diarrhea itself is quite low. Plan was for less invasive testing at this point with no recommendations for colonoscopy It was recommended that he continue to take Lomotil 4 times daily and to reduce dosing as loose stools improved. (3) Abnormal computed tomography of abdomen and pelvis: Status: Acute Assessment and plan: concern for liver masses, renal mass suspicious of neoplasm, RML/LLL lung nodules, abd pelvic ascites, enlarged prostate, gallstones - previous recommendation for f/u MRI and hemo/onc consultation pending - need for biopsy for diagnostic clarification he wants to know if cancerous DH Heme/Onc referral placed last admission by palliative goals of care discussed at that time, to remain full code for now. would consider hospice referral is appropriate. palliative care consult placed for continuity (4) Enlarged prostate: Status: Acute Assessment and plan: was started tamsulosin (5) Acute kidney injury superimposed on chronic kidney disease: Status: Acute Assessment and plan: no symptoms of fluid overload or electrolyte abnormality and voiding well avoid nephrotoxic drugs, renal dosing as needed monitor I&O closely daily weights daily electrolytes and kidney function monitoring (6) Atrial fibrillation: Status: Chronic (7) Diabetes mellitus: Status: Acute Assessment and plan: diabetic diet sliding scale with coverage AC hemoglobin A1C 6.9 earlier this month will give reduced basal insulin for now, 35 units (home 70) adjust as needed. (8) Kidney transplant recipient: Status: Chronic Assessment and plan: Continue home medications, mycophenolate and tacrolimus Tacrolimus level 7.8 on 05/04/25 (9) Anemia: Status: Chronic Assessment and plan: receives aranesp every 2 weeks no acute bleeding, and received IV hydration in setting of end stage renal disease, not on dialysis yet. (10) LEFT FOREARM AV FISTULA: Status: None Assessment and plan: Not currently on dialysis discussed with DR Warner Subjective Subjective Patient reports: no new complaints, tolerating liquids well, tolerating a regular diet and afebrile; denies shortness of breath Interval history since last seen: remains sleepy but arousable. Exam Narrative Exam Narrative: Chronically ill-appearing male older than stated age head is atraumatic eyes nonicteric noninjected oral mucosa is slightly dry skin is pale warm and dry cardiovascular regular rate and rhythm respirations even and unlabored abdomen is slightly distended guarding soft tender generalized, moves all extremities equally neurologic he is awake alert oriented no focal deficits psychiatric appropriate mood and affect Objective Last Vital Signs Temp 36.6 C 05/25/25 08:13 Pulse 50 L 05/25/25 13:04 Resp 16 05/25/25 12:55 BP 146/72 H 05/25/25 08:13 Pulse Ox 96 05/25/25 12:55 Laboratory Results - last 24 hr 05/24/25 05/24/25 05/24/25 13:33 18:02 18:20 WBC RBC Hgb Hct MCV MCH MCHC RDW Plt Count MPV Immature Gran % Neutrophils % Lymphocytes % Monocytes % Eosinophils % Basophils % Nucleated RBC % Absolute Neutrophils Absolute Lymphocytes Absolute Monocytes Absolute Eosinophils Absolute Basophils Sodium 128 L Potassium 4.1 Chloride 95 L Carbon Dioxide 18.9 L Anion Gap 14.1 H BUN 107 H* Creatinine 6.5 H* Est GFR (CKD-EPI 2020) 8.46 Glucose 194 H Calcium 8.7 Phosphorus 8.0 H Magnesium Troponin I 24 26 Urine RBC Not Applicable Urine WBC >50 H Ur Epithelial Cells Not Applicable Urine Crystals Not Applicable Urine Bacteria Not Applicable Urine Mucus Not Applicable Ur Culture Indicated? Yes Add-On Test Request 05/24/25 05/25/25 Unknown 06:12 WBC 3.35 L RBC 2.44 L Hgb 7.4 L Hct 23.5 L MCV 96 H MCH 30.3 MCHC 31.5 L RDW 14.3 H Plt Count 95 L MPV 10.0 Immature Gran % 0.6 Neutrophils % 49.2 Lymphocytes % 41.5 Monocytes % 6.3 Eosinophils % 2.1 Basophils % 0.3 Nucleated RBC % 0.0 Absolute Neutrophils 1.65 Absolute Lymphocytes 1.39 Absolute Monocytes 0.21 Absolute Eosinophils 0.07 Absolute Basophils 0.01 Sodium 129 L Potassium 4.0 Chloride 95 L Carbon Dioxide 19.1 L Anion Gap 14.9 H BUN 103 H* Creatinine 6.5 H* Est GFR (CKD-EPI 2020) 8.46 Glucose 178 H Calcium 8.4 L Phosphorus Magnesium 1.7 L Troponin I Urine RBC Urine WBC Ur Epithelial Cells Urine Crystals Urine Bacteria Urine Mucus Ur Culture Indicated? Add-On Test Request DONE Time Spent with Patient Time Spent with Patient: 35-49 minutes Time was spent: preparing to see the patient(eg.review tests), obtaining and/or reviewing separately otained hiistory, ordering medications,tests, procedures, indepentently interpreting results and counseling the patient
[2025-05-25] MEDS: Normal Saline 1,000 ML 80 ML IV (14:39)
[2025-05-25] MEDS: cefTRIAXone 1 GM/50 ML BAG IVPB (14:39)
--- NOTE | 2025-05-25 15:24 | NT_ITS ---
PT Notes Visit Reasons: Myron-Weakness Pt unwilling to participate in PT x2, he did say that his abdominal pain was 9/10 and neck pain was 5/10. He also stated he needs full help with rolling in bed, transfers. Observation is max assist of 2 MOLD CUTTING MACHINE OPERATOR's for rolling, and supine to sit, and bed repositioning. He did get his compression stump coverings on with MOLD CUTTING MACHINE OPERATOR's and asked to keep them on to allow legs to decompress before putting prothetics on. We all agreed if he wants to give this transfer a try we can do this later, I would suggest a steady lift once prothetics are on. Pt states at baseline he is able to pivot transfer with prothetics and mobilizes around most in w/c at home.
[2025-05-25] MEDS: MAGNESIUM SULFATE 1 GM/100 ML BAG IV_INF (15:26)
--- NOTE | 2025-05-25 16:12 | PDOC.CMIN ---
Care Management Initial Assmt Initial Assessment Reason for Hospitalization: Uti Functional Status/Living Situation Patient Presentation: Reuben was sitting up in bed when attempted to meet with him but he was very drowsy, somnolent even. After several attempts at calling his name and gentle touch on his shoulder, he opened his eyes then closed them immediately. His nurse indicated that is how he has been all day. Reuben was discharged less than 2 weeks ago with dehydration and diarrhea. He has had a kidney transplant in the past and currently has stage V kidney disease. He has an AV fistula in his left forearm but has not started dialysis yet. On his last admission, Rebuen had some abdominal imaging done which showed both a renal mass suspicious for primary renal carcinoma and at least 3 hepatic masses suspicious for metastatic disease. These finding have not been worked up yet. Reuben has had a Palliative Consult and will make other decisions when the nature of the masses has been clarified. Reuben 's main complaint when he presented to the ED was weakness and he has been found to have hyponatremia with a sodium of 128. His vital signs are stable and he remains afebrile. Town of Residence: [place] Resides with: Spouse ( Linda) Significant Other/Family: Local Natural Supports: Employment Status: Disabled Instrumental Activities of Daily Living (ADLs): Independent (at baseline independent but has been ill and weak requiring more support which Linda provides) Medications Medication Management: No Issues/Barriers identified Physical Functioning/Mobility Assistive Device: bilateral LE protheses Advance Directives Advance Directives: Do you have an Advance Directive: Y 04/06/24, 11:24 AD On File at [facility]: Y 04/06/24, 11:24 Date Asked 12/15/23 05/24/25, 12:06 AD Date Reviewed 05/24/25 05/24/25, 12:06 COLST On File at [facility] COLST Date Scanned Code Status Resuscitation Status Full Code Portal Pt does not currently have a portal and education provided: Yes Insurance Coverage/Financial Issues Insurance: Medicare [employer] Financial Assist 100 Care Team Visit Care Team Role Provider Type Violetta Sanford MD Primary Care Provider [facility] STAFF PHYSICIAN Dana Alva RDN, [facility] Other Providers AMMONIA DISTILLER Jasiel Pruett Other Providers OTHER Lamont Mary RDN Other Providers AMMONIA DISTILLER Zuleima Vaughn MD Emergency Provider [facility] STAFF PHYSICIAN Rayo Warner Admit Provider [facility] STAFF PHYSICIAN Attending Provider Discharge Potential Discharge Needs: PCP F/U Appt and Surgical F/U Appt Anticipated Barriers to Discharge: Medical Status Patient/Family Education Needs: Review discharge instructions, discuss Ask Me Three Transportation: Other (to be determined by disposition) Plan: Anticipate Reuben will be discharged home with a resumption of home health services for RN, PT, OT and EXTENSION SERVICE SPECIALIST, when medically cleared. He will follow up with his PCP and [facility] specialists and will transport with family. CM will follow and continue to assess for discharge needs. Social Determinants of Health Screening Will the Patient Participate in the Screening?: Declined to provide PFSH All Active Problems (Updated 05/09/25 @ 00:03 by LYLA LUNA) Diarrhea (Acute) Urinary tract infection (Acute) Kidney mass (Acute) Liver mass (Acute) Atrial flutter (Acute) CKD (chronic kidney disease), stage V (Acute) Catheter-associated urinary tract infection (Acute) Lung nodule, multiple (Acute) Abnormal chest xray (Acute) Abnormal computed tomography of abdomen and pelvis (Acute) Liver mass (Acute) Enlarged prostate (Acute) Cyst of left kidney (Acute) CKD (chronic kidney disease) (Chronic) History of pneumonia (Acute) Cough (Acute) Pneumonia (Acute) Anemia (Chronic) CAP (community acquired pneumonia) (Acute) Basal cell carcinoma (Acute) Delayed wound healing (Acute ~2019) burn left arm happened 2019 fistula near wound Abnormal electrocardiogram (Acute) Phantom pain (Acute) Tremor (Acute) per pCP treated with primidone RH HTN (hypertension) (Chronic) Diabetes mellitus (Acute) Edentulous (Acute) Esophageal foreign body (Acute) Food impaction of esophagus (Acute) Macrocytic anemia (Acute) Gastroparesis diabeticorum (Acute) COPD (chronic obstructive pulmonary disease) (Chronic) stage 3 severe 01/20/23 RH Chronic kidney disease (Chronic) Hypertension (Chronic) Hyperlipidemia (Chronic) CAD (coronary artery disease) (Chronic) GERD (gastroesophageal reflux disease) (Chronic) Asthma (Chronic) Chronic anxiety (Chronic) Chronic depression (Chronic) Intention tremor (Chronic) Status post appendectomy (Acute) Physical medicine and rehabilitation procedures (Acute 06/27/13) Dysphagia (Acute) CHF (congestive heart failure) (Acute) Diastolic CHF (Acute) Acute kidney injury superimposed on chronic kidney disease (Acute) Uncontrolled insulin dependent diabetes mellitus (Acute) Ambulatory dysfunction (Acute) Wenckebach second degree AV block (Acute) Fluid level behind tympanic membrane of left ear (Acute) Sensory hearing loss, bilateral (Acute) Tinnitus, bilateral (Acute) Osteoma of ear canal (Acute) Atrial fibrillation (Chronic) per pcp Pt had one episode 11/10 RH Kidney transplant recipient (Chronic) 2005 Medical History Left lower lobe pneumonia Sepsis CAP (community acquired pneumonia) Infection of amputation stump of right lower extremity Tubular adenoma of colon (02/01/17) Abscess of axilla (05/11/13) Personal history of allergy to other antibiotic agent Vitamin B 12 deficiency Adenomatous colon polyp History of colon polyps Lumbar back pain Erectile dysfunction Anxiety and depression Hydrocele Intention tremor Tricuspid insufficiency Obesity Stage 3 severe COPD by GOLD classification Hyperlipidemia Sciatica GERD (gastroesophageal reflux disease) MELISSA (obstructive sleep apnea) per PCP not using CPAP 01/20/23 RH Surgical History Status post bilateral below knee amputation History of bilateral cataract extraction 1999 H/O sinus surgery 2010 History of cardiac catheterization 2005 History of appendectomy 2012 History of colonoscopy (~10/2020) History of below-knee amputation of both lower extremities 2000 and 2010 Hx of amputation below knee Kidney transplant recipient 01/08/2014 EGD - MAC (04/02/16) Colonoscopy - MAC (02/01/17) Family History Father , cancer at 64 No problems noted. Brother , SM Cell Cancer No problems noted. Sister Breast cancer Mother No problems noted. Social History Smoking/Tobacco Use Status: Former Tobacco Use Quit Date: 07/25/90 Tobacco: How many years used: 15 Smoking risk assessment performed?: Yes Alcohol Intake: never Drug use: Never Substance use type: does not use Household members: spouse Housing: house What is your relationship status?: Panel score (0-1 are the most socially isolated patients): 1 Do you feel safe at home: Yes Do you feel safe in your relationship?: Yes
[2025-05-25] MEDS: Dextrose 50%-Water 25 GM/50 ML SYR IVP (16:43)
[2025-05-25] MEDS: Primidone 50 MG TAB 125 MG PO (19:58)
[2025-05-25] MEDS: Primidone 250 MG TAB 375 MG PO (19:59)
[2025-05-25] MEDS: Primidone 250 MG TAB PO (19:59)
[2025-05-25] MEDS: Aspirin E.C. 81 MG TABEC PO (20:01)
[2025-05-25] MEDS: Montelukast 10 MG TAB PO (20:01)
[2025-05-25] MEDS: Atorvastatin 20 MG TAB PO (20:01)
[2025-05-25 21:01] VITALS: BP 124/62; PULSE 84; RESP 15; TEMP 36; O2SAT 100
[2025-05-26] MEDS: Prochlorperazine 5 MG TAB PO ×3 (02:33→21:59)
[2025-05-26] MEDS: Normal Saline 1,000 ML 80 ML IV (02:33)
[2025-05-26 06:38] LABS: Abs Immature Grans 0.02 10^3/uL (0.0-0.06); HCT 27.0 % (40.0-50.0); HGB 8.8 g/dL (13.5-17.5); Immature Grans % 0.3 %; MCH 31.3 pg (27.0-33.0); MCHC 32.6 % (32.0-36.0); MCV 96 fL (80-95); MPV 9.3 fL (8.0-11.0); Platelet Count 110 10^3/uL (130-400); RBC 2.81 10^6/uL (4.36-5.78); RDW 14.4 % (11.8-14.1); RDW-SD 50.9 fL; WBC 6.41 10^3/uL (4.4-10.8)
[2025-05-26 07:22] LABS: ALT 12 U/L (16-63); AST 27 U/L (15-37); Albumin 1.6 g/dL (3.4-5.0); Alkaline Phosphatase 419 U/L (46-116); Anion Gap 13.9 mmol/L (3-11); Bilirubin, Total 0.4 mg/dL (0.2-1.0); CO2 20.1 mmol/L (21.0-32.0); Calcium 8.7 mg/dL (8.5-10.1); Chloride 95 mmol/L (98-107); Potassium 3.6 mmol/L (3.5-5.1); Sodium 129 mmol/L (136-145); Total Protein 6.3 g/dL (6.4-8.2)
[2025-05-26 07:38] LABS: Glucose 28 mg/dL (74-106)
[2025-05-26 07:39] LABS: BUN 102 mg/dL (7-18)
[2025-05-26] MEDS: Dextrose 50%-Water 25 GM/50 ML SYR IVP (07:48)
[2025-05-26 08:27] VITALS: BP 162/76; PULSE 86; RESP 18; TEMP 35.8; O2SAT 99
[2025-05-26] MEDS: Carvedilol 6.25 MG TAB 12.5 MG PO ×2 (09:34→22:00)
[2025-05-26] MEDS: Tamsulosin 0.4 MG CAPCR PO (09:35)
[2025-05-26] MEDS: Ondansetron O.D.T. 4 MG TABEF PO ×2 (09:36→16:21)
[2025-05-26] MEDS: Mycophenolate Mofetil 250 MG CAP 500 MG PO ×2 (09:38→21:59)
[2025-05-26] MEDS: Colestipol 1 GM TAB PO (09:40)
[2025-05-26] MEDS: Tacrolimus 0.5 MG CAP 1 MG PO ×2 (09:41→22:00)
[2025-05-26] MEDS: Calcitriol 0.25 MCG CAP 0.5 MCG PO (09:45)
[2025-05-26] MEDS: Sodium Bicarbonate 650 MG TAB 1300 MG PO ×2 (09:47→21:59)
[2025-05-26] MEDS: Vitamins B Comp w/C TAB 1 TAB PO ×2 (09:50→21:58)
[2025-05-26] MEDS: Cyanocobalamin 500 MCG TAB 1000 MCG PO (09:51)
[2025-05-26] MEDS: Multivitamin TAB 1 TAB PO (09:52)
--- NOTE | 2025-05-26 10:50 | W.PM.PROGNOT ---
Date of Service Date of service: 05/26/25 Time of Service: 10:50 Assessment and Plan Assessment and plan (1) Urinary tract infection: Status: Acute Assessment and plan: Urine cultures are growing enterococcus, which is not sensitive to cephalosporins, stop ceftriaxone. Sensitive to amox, but remote h/o swelling with PCN. Also floroquinolone allergy. Will try amox trial, if he tolerates this will use amp then plan home on amox. Chang catheter was exchanged in ED (2) Diarrhea: Status: Acute Assessment and plan: Admitted from May 04 through May 08 for diarrhea or illness with acute dehydration. All fecal pathogen testing was negative Symptoms improved on loperamide He was seen outpatient in general surgery's office for referral for consideration of colonoscopy. It was noted that he was at high risk in terms of preprocedural complications from maintaining adequate hydration and at high risk for worsening kidney injury secondary to bowel prep and that the diagnostic yield of a colonoscopy for diarrhea itself is quite low. Plan was for less invasive testing at this point with no recommendations for colonoscopy It was recommended that he continue to take Lomotil 4 times daily and to reduce dosing as loose stools improved. 05/26 one soft (non liquid BM this morning after 4 yesterday), if continues to improve cut dose. (3) Abnormal computed tomography of abdomen and pelvis: Status: Acute Assessment and plan: concern for liver masses, renal mass suspicious of neoplasm, RML/LLL lung nodules, abd pelvic ascites, enlarged prostate, gallstones - previous recommendation for f/u MRI and hemo/onc consultation - biospy scheduled 05/28 at as outpatient, try to keep this appointment. goals of care discussed last visit, to remain full code for now. would consider hospice referral is appropriate. palliative care consult placed for continuity (4) Enlarged prostate: Status: Acute Assessment and plan: was started tamsulosin (5) Acute kidney injury superimposed on chronic kidney disease: Status: Acute Assessment and plan: no symptoms of fluid overload or electrolyte abnormality and voiding well avoid nephrotoxic drugs, renal dosing as needed monitor I&O closely daily weights daily electrolytes and kidney function monitoring have been stable. (6) Atrial fibrillation: Status: Chronic (7) Diabetes mellitus: Status: Acute Assessment and plan: diabetic diet sliding scale with coverage AC hemoglobin A1C 6.9 earlier this month, goal 7-8%. Basal insulin stopped 05/24, still hypoglycemic this morning. Added D5 to fluids, cut ISS to sensitive. Insulin need less with weight loss and renal failure. (8) Kidney transplant recipient: Status: Chronic Assessment and plan: Continue home medications, mycophenolate and tacrolimus Tacrolimus level 7.8 on 05/04/25 (9) Anemia: Status: Chronic Assessment and plan: receives aranesp every 2 weeks no acute bleeding, and received IV hydration in setting of end stage renal disease, not on dialysis yet. (10) DVT prophylaxis: Status: Acute Assessment and plan: he is high risk, with stage 5 ckd will use heparin 5000 BID Subjective Subjective Patient reports: denies nausea, vomiting or shortness of breath Interval history since last seen: Events: hypoglycemic this morning on AM labs (even though glargine discontinued 05/24). He felt headache and shakey this morning, better with sugar. He feels cold, but no fever. Not in pain. Exam Narrative Exam Narrative: Chronically ill-appearing male, bundled in blankets, awake and alert No icterus Lungs: clear, normal effort CV: RRR, no murmur Abd: Soft, NT/ND Ext: no edema, non-tender Objective Last Vital Signs Temp 35.8 C L 05/26/25 08:27 Pulse 86 05/26/25 08:27 Resp 18 05/26/25 08:27 BP 162/76 H 05/26/25 08:27 Pulse Ox 99 05/26/25 08:27 Laboratory Results - last 24 hr 05/26/25 06:03 WBC 6.41 RBC 2.81 L Hgb 8.8 L Hct 27.0 L MCV 96 H MCH 31.3 MCHC 32.6 RDW 14.4 H Plt Count 110 L MPV 9.3 Immature Gran % 0.3 Neutrophils % 71.1 Lymphocytes % 21.8 Monocytes % 5.8 Eosinophils % 0.8 Basophils % 0.2 Nucleated RBC % 0.0 Absolute Neutrophils 4.56 Absolute Lymphocytes 1.40 Absolute Monocytes 0.37 Absolute Eosinophils 0.05 Absolute Basophils 0.01 Sodium 129 L Potassium 3.6 Chloride 95 L Carbon Dioxide 20.1 L Anion Gap 13.9 H BUN 102 H* Creatinine 6.0 H* Est GFR (CKD-EPI 2020) 9.31 Glucose 28 L* Calcium 8.7 Total Bilirubin 0.4 AST 27 ALT 12 L Alkaline Phosphatase 419 H Total Protein 6.3 L Albumin 1.6 L Time Spent with Patient Time Spent with Patient: 35-49 minutes Time was spent: preparing to see the patient(eg.review tests), obtaining and/or reviewing separately otained hiistory, ordering medications,tests, procedures, referring, communicating with other health geriatric personal care aide, indepentently interpreting results, counseling the patient and care coordination
[2025-05-26] MEDS: DEXTROSE 5%-0.9% SALINE 1,000 ML 75 ML IV (11:33)
[2025-05-26 11:51] VITALS: BP 133/48; PULSE 66; RESP 16; TEMP 37; O2SAT 99
[2025-05-26] MEDS: amLODIPine 10 MG TAB PO (11:53)
[2025-05-26] MEDS: Amoxicillin 250 MG CAP PO (11:54)
[2025-05-26] MEDS: Heparin 5,000 UNITS/ML VIAL 5000 UNITS SC (11:54)
[2025-05-26] MEDS: Albuterol HFA 8 GM 60 PUFF INH IH (12:38)
[2025-05-26 15:44] VITALS: TEMP 36.8
--- NOTE | 2025-05-26 16:01 | PT.INNT ---
PT Notes Visit Reasons: Myron-Weakness Again today advised by nursing staff and patient presentation, that he is not able to participate in PT evaluation. He has had extremely low blood surgar and difficulty managing his symptoms. He expresses extreme fatigue and inability to participate.
[2025-05-26] MEDS: Ampicillin 500 MG VIAL 1000 MG IVP (17:00)
[2025-05-26] MEDS: Normal Saline 50 ML (17:03)
[2025-05-26 20:08] VITALS: BP 145/67; PULSE 80; RESP 18; TEMP 36.7; O2SAT 100
[2025-05-26 21:07] LABS: EPI 027-NAP1-B1 PRESUMPTIVE NEGATIVE
[2025-05-26] MEDS: Primidone 250 MG TAB 375 MG PO (21:58)
[2025-05-26] MEDS: Aspirin E.C. 81 MG TABEC PO (21:59)
[2025-05-26] MEDS: Montelukast 10 MG TAB PO (22:00)
[2025-05-26] MEDS: Atorvastatin 20 MG TAB PO (22:00)
[2025-05-26] MEDS: Loperamide 2 MG CAP PO (22:00)
[2025-05-27] MEDS: Heparin 5,000 UNITS/ML VIAL 5000 UNITS SC ×2 (00:19→13:11)
[2025-05-27] MEDS: DEXTROSE 5%-0.9% SALINE 1,000 ML 75 ML IV (03:01)
[2025-05-27] MEDS: Prochlorperazine 5 MG TAB PO ×3 (04:39→20:56)
[2025-05-27] MEDS: AMPICILLIN SODIUM 1 GM in Normal Saline 50 ML IVPB ×2 (04:40→16:31)
[2025-05-27] MEDS: Acetaminophen 325 MG TAB 650 MG PO ×3 (04:48→16:38)
[2025-05-27 07:14] LABS: Anion Gap 14.2 mmol/L (3-11); CO2 19.8 mmol/L (21.0-32.0); Calcium 8.6 mg/dL (8.5-10.1); Chloride 97 mmol/L (98-107); Glucose 178 mg/dL (74-106); Magnesium 1.6 mg/dL (1.8-2.4); Potassium 3.8 mmol/L (3.5-5.1); Sodium 131 mmol/L (136-145)
[2025-05-27 07:21] LABS: BUN 99 mg/dL (7-18)
[2025-05-27] MEDS: Ondansetron O.D.T. 4 MG TABEF PO ×2 (07:29→16:32)
[2025-05-27] MEDS: Albuterol HFA 8 GM 60 PUFF INH IH ×2 (07:42→16:50)
--- NOTE | 2025-05-27 07:42 | IN_ITS ---
PT Notes Visit Reasons: UTI, Chronic Kidney Disease Physical Therapy Inpatient Initial Evaluation Date: 05/27/2025 Referring Doctor: Shandra Jiménez NP PT Orders: PT CONSULT:Eval/Treat Precautions: Fall. Standard. Activity as tolerated. Short B transtibial amputation. 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 Patient was admitted for management of UTI, diarhea, neoplasm in liver, CKD stage V, unmanaged diabetes C.and anemia. PMHX: All Active Problems (Updated 05/09/25 @ 00:03 by LYLA LUNA) Diarrhea (Acute) Urinary tract infection (Acute) Kidney mass (Acute) Liver mass (Acute) Atrial flutter (Acute) CKD (chronic kidney disease), stage V (Acute) Catheter-associated urinary tract infection (Acute) Lung nodule, multiple (Acute) Abnormal chest xray (Acute) Abnormal computed tomography of abdomen and pelvis (Acute) Liver mass (Acute) Enlarged prostate (Acute) Cyst of left kidney (Acute) CKD (chronic kidney disease) (Chronic) History of pneumonia (Acute) Cough (Acute) Pneumonia (Acute) Anemia (Chronic) CAP (community acquired pneumonia) (Acute) Basal cell carcinoma (Acute) Delayed wound healing (Acute ~2019) burn left arm happened 2019 fistula near wound Abnormal electrocardiogram (Acute) Phantom pain (Acute) Tremor (Acute) per pCP treated with primidone RH HTN (hypertension) (Chronic) Diabetes mellitus (Acute) Edentulous (Acute) Esophageal foreign body (Acute) Food impaction of esophagus (Acute) Macrocytic anemia (Acute) Gastroparesis diabeticorum (Acute) COPD (chronic obstructive pulmonary disease) (Chronic) stage 3 severe 01/20/23 RH Chronic kidney disease (Chronic) Hypertension (Chronic) Hyperlipidemia (Chronic) CAD (coronary artery disease) (Chronic) GERD (gastroesophageal reflux disease) (Chronic) Asthma (Chronic) Chronic anxiety (Chronic) Chronic depression (Chronic) Intention tremor (Chronic) Status post appendectomy (Acute) Physical medicine and rehabilitation procedures (Acute 06/27/13) Dysphagia (Acute) CHF (congestive heart failure) (Acute) Diastolic CHF (Acute) Acute kidney injury superimposed on chronic kidney disease (Acute) Uncontrolled insulin dependent diabetes mellitus (Acute) Ambulatory dysfunction (Acute) [place] second degree AV block (Acute) Fluid level behind tympanic membrane of left ear (Acute) Sensory hearing loss, bilateral (Acute) Tinnitus, bilateral (Acute) Osteoma of ear canal (Acute) Atrial fibrillation (Chronic) per pcp Pt had one episode 11/10 RH Kidney transplant recipient (Chronic) 2005 Medical History Left lower lobe pneumonia Sepsis CAP (community acquired pneumonia) Infection of amputation stump of right lower extremity Tubular adenoma of colon (02/01/17) Abscess of axilla (05/11/13) Personal history of allergy to other antibiotic agent Vitamin B 12 deficiency Adenomatous colon polyp History of colon polyps Lumbar back pain Erectile dysfunction Anxiety and depression Hydrocele Intention tremor Tricuspid insufficiency Obesity Stage 3 severe COPD by GOLD classification Hyperlipidemia Sciatica GERD (gastroesophageal reflux disease) MELISSA (obstructive sleep apnea) per PCP not using CPAP 01/20/23 RH Surgical History Status post bilateral below knee amputation History of bilateral cataract extraction 1999H/O sinus surgery 2010 History of cardiac catheterization 2005 History of appendectomy 2012 History of colonoscopy (~10/2020) History of below-knee amputation of both lower extremities 2000 and 2010 Hx of amputation below knee Kidney transplant recipient 01/08/2014EGD - MAC (04/02/16) Colonoscopy - MAC (02/01/17) Social History/Home Situation: Lives with in a private home with a ramp to enter. Main mobility indoors is a motorized wheelchair. B BKA for about 20 years now and has had 3 sets of prosthesis with the last one given just recently. Equipment Owned/DME: motorized wheelchair, front-wheeled walker, B BKA prosthesis Subjective: Exhausted. Could not sit at edge at edge of bed with maximal assist of 2 Objective: General Observation: Resting in bed, appeared fatigued Mental Status: Alert and oriented as to person, place, time, and purpose. Able to pay attention, focus, and respond appropriately. Pain: Generalized pain Vital Signs: Closely monitored by nursing staff ROM: Right Upper Extremity: Shoulder Flexion allowed up to about 90 degrees. Shoulder abduction allowed up to about 80 degrees. Elbow flexion WFL. Wrist flexion WFL. Functional opening and closing of hand WFL. Left Upper Extremity: Shoulder Flexion allowed up to about 90 degrees. Shoulder abduction allowed up to about 80 degrees. Elbow flexion WFL. Wrist flexion WFL. Functional opening and closing of hand WFL. Right Lower Extremity: Hip flexion allowed up to 30 degrees. Hip abduction WFL. Knee flexion 90 degrees to 10 degrees. Knee extension -30 degrees. Left Lower Extremity: Hip flexion allowed up to 20 degrees. Hip abduction WFL. Knee flexion 90 degrees to 10 degrees. Knee extension -30 degrees. Strength: Right Upper Extremity: Shoulder flexors 3-/5. Shoulder abductors 3-/5. Elbow flexors 4-/5. Elbow extensors 4-/5. Construction Carpenters Helper weak but functional.. Left Upper Extremity: Shoulder flexors 3-/5. Shoulder abductors 3-/5. Elbow flexors 4-/5. Elbow extensors 4-/5. Construction Carpenters Helper weak but functional.. Right Lower Extremity: Hip flexors 2+/5. Hip abductors 2+/5. Knee flexors 3-/5. Knee extensors 3-/5. Left Lower Extremity: Hip flexors 2+/5. Hip abductors 2+/5. Knee flexors 3-/5. Knee extensors 3-/5. Bed Mobility/Transfers: Moderate verbal and tactile cueing provided for use of B hands as needed for support, movement sequence, AD management, and posture to reduce fall risk and minimize pain report Rolling moderate assist x 2 Supine to sit maximal assist of 2 with HOB at 45 degrees Scoot to egde maximal assist of 2 using white cl Sit to stand unable Stand to sit unable Bed to reclining chair unable Gait: Deferred due to safety concerns Balance: Static Sitting: Poor Dynamic Sitting: Unable Static Standing: Deferred Dynamic Standing: Deferred Special Tests: Mobility Limitations Standardized Measure [facility] AM-PAC 6 clicks Basic Mobility Inpatient Short Form: Raw Score: 6 CMS Score: 100% deficit Informed Consent/Education: Patient was instructed in purpose of PT consult and plan of care. Agreeable to proceed with established PT POC to achieve personal goals. Assessment: Patient could only tolerate sitting at edge of bed with maximal assist of PT and Nurse Perez. He po;itely refused trying out his prosthesis as he generally puts in on in supine and has used the footboard to activate the clicking mechanism. Patient demonstrated functional mobility decline needing moderate to maximal assistance with sitting up from supine to edge of bed as patient could not use B UE and trunk muscles efficiently to scoot to edge of bed. PT and Nurse Perez assisted for safety during bed mobility, transfers, and ambulation. Patient has been a bilateral transtibial amputee for about 20 years now and has just received his replacement BKA prosthesis a couple of months back. Redness to pressure bearing areas on B residual limbs red which Nurse Soy was aware of. Patient presents with clinical signs and symptoms consistent with current/admitting diagnoses that have resulted to mobility limitations, gait instability, generalized weakness, and overall ADL decline as demonstrated by the following impairment level findings: 1. Decreased strength to B UE/LE and trunk muscles 2. Impaired sitting/standing balance 3. Impaired activity tolerance 4. Limitation of joint range of motion in B shoulders, B hips and knees 5. Shortness of breath 6. Bilateral BKA Impairments are contributing to the following functional limitations: 1. Decline in bed mobility skills 2. Decline in transfer skills 3. Difficulty with ambulation without assistive device and physical assistance 4. Increased completion time for mobility ADL performance 5. Increased risk for falls 6. Difficulty with managing steps alone safely Patient is assessed as a 63180 moderate complexity based on the following: History: 70-year-old male with past medical history as indicated above Examination: Demonstrable impairment in strength, balance, and mobility level with underlying impairments and functional limitations as exhibited above as well as deficit score of 100% utilizing the [facility] Mobility Inpatient Short Form Presentation: Evolving Decision Makin moderate complexity Goals: Goals X1 week 1. Supine-Sit independent 2. Sit-Supine independent 3. Sit-Stand independent 4. Stand-Sit independent with FWW 5. Bed-Chair independent with FWW 6. Chair-Bed independent with FWW 7. Independent gait on level surface with use of FWW for at least 15 feet without report of pain nor dyspnea8. Independent with home exercise program 8. Good static and dynamic standing balance/tolerance Plan of Care/Treatment Plan: 1-2x/day, 7 days/week x 1 week. Plan of care has been reviewed with the PICK UP TRUCK DRIVER providing the service under Physical Therapy direction. Initiate Physical Therapy intervention for pain management as needed, strengthening, bed mobility, transfers, gait, stairs, balance training, and use of assistive device. DISCHARGE RECOMMENDATIONS: PT TREATMENT CODE/TIME: 86579 x 20 minutes for 1 unit, 84060 x 18 minutes for 1 unit (7:40-8:20). Thank you for the opportunity to participate in the care of this patient. Alda Walter PT, DPT, CLT [facility] [place], [place]
[2025-05-27 08:32] VITALS: BP 135/62; PULSE 88; RESP 16; TEMP 36.4; O2SAT 97
--- NOTE | 2025-05-27 08:46 | PDOC.CMPRO ---
Date of service: 05/27/25 Time of Service: 12:18 Care Management Progress Note Progress Note Text Progress Note Text: Reuben was sitting up in bed and eating lunch when CM met with him. He has been participating in PT, which recommends SNF versus HH. Per PT, Reuben currently requires two-person assistance for bed mobility. Reuben shared that his is currently hospitalized at [facility], and he would be returning home alone if discharged home. He is agreeable to CM sending referrals and requested that CM communicate with his niece, Jeremie, regarding the referral locations. The patient is agreeable to sending referrals to [facility] and [facility] in [place] which have been sent. [facility] is full, [facility] pending. Reuben also has a biopsy appointment at [facility] tomorrow. He is aware that this appointment may need to be rescheduled if he proceeds with SNF placement. CM contacted Jeremie and left a voicemail. CM will continue to follow up. Discharge Potential Discharge Needs: PCP F/U Appt and Surgical F/U Appt Anticipated Barriers to Discharge: Medical Status Patient/Family Education Needs: Review discharge instructions, discuss Ask Me Three Transportation: Other (to be determined by disposition) Plan: Anticipate Reuben will be discharged home with a resumption of home health services for RN, PT, OT and HEAD STILL OPERATOR, when medically cleared. He will follow up with his PCP and [facility] specialists and will transport with family. CM will follow and continue to assess for discharge needs. Social Determinants of Health Screening Will the Patient Participate in the Screening?: Declined to provide
[2025-05-27] MEDS: Carvedilol 6.25 MG TAB 12.5 MG PO ×2 (09:12→20:55)
[2025-05-27] MEDS: Calcitriol 0.25 MCG CAP 0.5 MCG PO (09:12)
[2025-05-27] MEDS: Colestipol 1 GM TAB PO (09:12)
[2025-05-27] MEDS: Sodium Bicarbonate 650 MG TAB 1300 MG PO ×2 (09:12→20:55)
[2025-05-27] MEDS: Vitamins B Comp w/C TAB 1 TAB PO ×2 (09:12→20:55)
[2025-05-27] MEDS: Multivitamin TAB 1 TAB PO (09:12)
[2025-05-27] MEDS: amLODIPine 10 MG TAB PO (09:13)
[2025-05-27] MEDS: Mycophenolate Mofetil 250 MG CAP 500 MG PO ×2 (09:13→20:56)
[2025-05-27] MEDS: Cyanocobalamin 500 MCG TAB 1000 MCG PO (09:13)
[2025-05-27] MEDS: Tamsulosin 0.4 MG CAPCR PO (09:13)
[2025-05-27] MEDS: Insulin Aspart 300 UNITS/3 ML PEN SC ×4 (09:13→20:59)
[2025-05-27] MEDS: Tacrolimus 0.5 MG CAP 1 MG PO ×2 (09:13→20:57)
--- NOTE | 2025-05-27 13:32 | PT.INNT ---
PT Notes Visit Reasons: UTI, Chronic Kidney Disease Pt approached for therapy intervention this afternoon but was refused by pt. pt reports he is very exhausted and would like to rest the afternoon, he politely declined any form of engagement but reports he would like to aim for tomorrow after resting this afternoon.
--- NOTE | 2025-05-27 15:05 | PGE_ITS ---
Date of Service Date of service: 05/27/25 Time of Service: 15:05 Assessment and Plan Assessment and plan (1) Urinary tract infection: Status: Acute Assessment and plan: Urine cultures are growing enterococcus, which is not sensitive to cephalosporins, stopped ceftriaxone 05/26. Sensitive to amox, but remote h/o swelling with PCN. Also floroquinolone allergy. Successful amox challenge, ampicillin started 05/26, declassified PCN allergy. Chang catheter was exchanged in ED (2) Diarrhea: Status: Acute Assessment and plan: Admitted from May 04 through May 08 for diarrhea or illness with acute dehydration. All fecal pathogen testing was negative Symptoms improved on loperamide He was seen outpatient in general surgery's office for referral for consideration of colonoscopy. It was noted that he was at high risk in terms of preprocedural complications f rom maintaining adequate hydration and at high risk for worsening kidney injury secondary to bowel prep and that the diagnostic yield of a colonoscopy for diarrhea itself is quite low. Plan was for less invasive testing at this point with no recommendations for colonoscopy It was recommended that he continue to take Lomotil 4 times daily and to reduce dosing as loose stools improved. There was some improvement, but they picked up again after antibiotics so continue. Get CMV, can cause colitis in immune suppressed. (3) Abnormal computed tomography of abdomen and pelvis: Status: Acute Assessment and plan: concern for liver masses, renal mass suspicious of neoplasm, RML/LLL lung nodules, abd pelvic ascites, enlarged prostate, gallstones - previous recommendation for f/u MRI and hemo/onc consultation - biospy scheduled 05/28 at as outpatient, try to keep this appointment. goals of care discussed last visit, to remain full code for now. would consider hospice referral is appropriate. palliative care consult placed for continuity -Plan to d/c in am to make 05/28 appointment (4) Enlarged prostate: Status: Acute Assessment and plan: was started tamsulosin (5) Acute kidney injury superimposed on chronic kidney disease: Status: Acute Assessment and plan: no symptoms of fluid overload or electrolyte abnormality and voiding well avoid nephrotoxic drugs, renal dosing as needed daily electrolytes and kidney function monitoring have been stable. (6) Atrial fibrillation: Status: Chronic Assessment and plan: on carvedilol, not anticoagulated (on just asa per patient/PCP) (7) Diabetes mellitus: Status: Acute Assessment and plan: diabetic diet sliding scale with coverage AC hemoglobin A1C 6.9 earlier this month, goal 7-8%. Basal insulin stopped 05/24, still hypoglycemic 05/26 AM. Added D5 to fluids, cut ISS to sensitive sugars have not been low since. He has been eating more, stop fluids in preparation for discharge. (8) Kidney transplant recipient: Status: Chronic Assessment and plan: Continue home medications, mycophenolate and tacrolimus Tacrolimus level 7.8 on 05/04/25 (9) Anemia: Status: Chronic Assessment and plan: receives aranesp every 2 weeks no acute bleeding, and received IV hydration in setting of end stage renal disease, not on dialysis yet. Also some chronic blood loss Due for aranesp today, ordered routine dose. Outpatient transfusion threshold is 8 (2 units if under 7) (10) DVT prophylaxis: Status: Acute Assessment and plan: he is high risk, with stage 5 ckd will use heparin 5000 BID Subjective Subjective Patient reports: feels better, tolerating a regular diet and voiding w/o difficulty; denies nausea, vomiting, shortness of breath or fever Interval history since last seen: Events: tolerated amox 250mg, then given ampicillin wihtout reaction. Feeling much better today, no longer cold/chilled, more energy. no rash. Exam Narrative Exam Narrative: Awake and alert, NAD No icterus, pale, MMM Lungs: clear, normal effort CV: RRR, no murmur Abd: Soft, NT/ND Ext: no edema, non-tender Objective Last Vital Signs Temp 36.4 C L 05/27/25 08:32 Pulse 88 05/27/25 08:32 Resp 16 05/27/25 08:32 BP 135/62 05/27/25 08:32 Pulse Ox 97 05/27/25 08:32 Laboratory Results - last 24 hr 05/26/25 05/27/25 20:05 06:28 Sodium 131 L Potassium 3.8 Chloride 97 L Carbon Dioxide 19.8 L Anion Gap 14.2 H BUN 99 H* Creatinine 5.9 H* Est GFR (CKD-EPI 2020) 9.50 Glucose 178 H Calcium 8.6 Magnesium 1.6 L Stl C.difficile Tox PCR Negative Time Spent with Patient Time Spent with Patient: 35-49 minutes Time was spent: preparing to see the patient(eg.review tests), obtaining and/or reviewing separately otained hiistory, ordering medications,tests, procedures, referring, communicating with other health senior care assistant, indepentently interpreting results, counseling the patient and care coordination
[2025-05-27] MEDS: Normal Saline Flush 10 ML SYR (16:33)
[2025-05-27] MEDS: Darbepoetin 300 MCG SYR SC (16:59)
[2025-05-27] MEDS: MAGNESIUM SULFATE 1 GM/100 ML BAG IV_INF (17:25)
[2025-05-27] MEDS: Primidone 250 MG TAB 375 MG PO (20:54)
[2025-05-27] MEDS: Aspirin E.C. 81 MG TABEC PO (20:56)
[2025-05-27] MEDS: Atorvastatin 20 MG TAB PO (20:56)
[2025-05-27] MEDS: Montelukast 10 MG TAB PO (20:57)
[2025-05-27 21:20] VITALS: BP 120/66; PULSE 88; RESP 18; TEMP 36.8; O2SAT 97
[2025-05-28] MEDS: Heparin 5,000 UNITS/ML VIAL 5000 UNITS SC (00:26)
[2025-05-28] MEDS: Albuterol HFA 8 GM 60 PUFF INH IH (00:43)
[2025-05-28] MEDS: Prochlorperazine 5 MG TAB PO ×3 (03:52→21:06)
[2025-05-28] MEDS: AMPICILLIN SODIUM 1 GM in Normal Saline 50 ML IVPB (03:52)
[2025-05-28 07:29] LABS: HCT 24.0 % (40.0-50.0); MCH 32.1 pg (27.0-33.0); MCHC 32.9 % (32.0-36.0); MCV 98 fL (80-95); MPV 9.7 fL (8.0-11.0); RBC 2.46 10^6/uL (4.36-5.78); RDW 14.6 % (11.8-14.1); RDW-SD 52.7 fL; WBC 4.11 10^3/uL (4.4-10.8)
[2025-05-28 07:44] LABS: Anion Gap 15.0 mmol/L (3-11); CO2 19.0 mmol/L (21.0-32.0); Calcium 8.6 mg/dL (8.5-10.1); Chloride 96 mmol/L (98-107); Glucose 103 mg/dL (74-106); Magnesium 1.7 mg/dL (1.8-2.4); Potassium 3.7 mmol/L (3.5-5.1); Sodium 130 mmol/L (136-145)
[2025-05-28 07:49] LABS: BUN 95 mg/dL (7-18)
[2025-05-28 07:50] LABS: HGB 7.9 g/dL (13.5-17.5)
[2025-05-28 07:51] LABS: Platelet Count 75 10^3/uL (130-400)
[2025-05-28 08:11] VITALS: BP 140/64; PULSE 81; RESP 20; TEMP 36.5; O2SAT 99
--- NOTE | 2025-05-28 08:26 | PDOC.CMPRO ---
Date of service: 05/28/25 Time of Service: 08:26 Care Management Progress Note Progress Note Text Progress Note Text: Reuben was lying in bed and is accompanied by his niece Jeremie, when CM met with him. He currently requires two-person assistance for bed mobility and given the fact that his Linda is currently having medical issues of her own and will be unable to lift until medically cleared options for SNF is being explored. . [facility] received a referral, however they have questions about his goals of care moving forward. Palliative consult is pending for tomorrow, his niece Jeremie works at [employer]and would like to attend. Per PT, Reuben is very weak and prognosis for mobility progression in very low. Reuben's biopsy [place] [facility] [place] been rescheduled for 06/07/25. Per Jeremie, a 7:45 arrival for labs is planned, then will report to @ 8:30 am. CM will continue to follow up. Discharge Potential Discharge Needs: PCP F/U Appt Anticipated Barriers to Discharge: Medical Status Patient/Family Education Needs: Review discharge instructions, discuss Ask Me Three Transportation: RCT RCT Transportation: Wheel chair van Plan: Anticipate Reuben will be discharged to SNF vs. home with a resumption of home health services for RN, PT, OT and GRIT REMOVAL OPERATOR, when medically cleared. He will follow up with his PCP and [facility] specialists and will transport with family. CM will follow and continue to assess for discharge needs. Social Determinants of Health Screening Will the Patient Participate in the Screening?: Declined to provide
[2025-05-28] MEDS: Ondansetron O.D.T. 4 MG TABEF PO (08:32)
[2025-05-28] MEDS: Calcitriol 0.25 MCG CAP 0.5 MCG PO (11:28)
[2025-05-28] MEDS: Colestipol 1 GM TAB PO (11:28)
[2025-05-28] MEDS: Sodium Bicarbonate 650 MG TAB 1300 MG PO ×2 (11:29→21:06)
[2025-05-28] MEDS: Cyanocobalamin 500 MCG TAB 1000 MCG PO (11:29)
[2025-05-28] MEDS: Tacrolimus 0.5 MG CAP 1 MG PO ×2 (11:29→21:05)
[2025-05-28] MEDS: Tamsulosin 0.4 MG CAPCR PO (11:29)
[2025-05-28] MEDS: Carvedilol 6.25 MG TAB 12.5 MG PO ×2 (11:29→21:06)
[2025-05-28] MEDS: Vitamins B Comp w/C TAB 1 TAB PO ×2 (11:29→21:05)
[2025-05-28] MEDS: Mycophenolate Mofetil 250 MG CAP 500 MG PO ×2 (11:29→21:06)
[2025-05-28] MEDS: Multivitamin TAB 1 TAB PO (11:30)
[2025-05-28] MEDS: amLODIPine 10 MG TAB PO (11:30)
[2025-05-28] MEDS: Ampicillin 500 MG CAP PO ×2 (11:35→22:45)
--- NOTE | 2025-05-28 11:45 | PT.INTREAT ---
PT Notes Visit Reasons: UTI, Chronic Kidney Disease Physical Therapy Inpatient Treatment Note Date: 05/28/2025 Precautions: Fall. Standard. Activity as tolerated. Short B transtibial amputation. Subjective: More exhausted this morning. refuisng politely getting out of bed stating that he did not have the energy to do anything. Was agreeable to using a longer tubigrip to minimize swelling in B residual limbs. Nurse Chris verbalized that patient did not look too well today. Objective: General Observation: Resting in bed, appeared fatigued and more aple compared to yesetrday. Mental Status: Alert and oriented as to person, place, time, and purpose. Able to pay attention, focus, and respond appropriately. Pain: Generalized pain Vital Signs: Closely monitored by nursing staff THERA EX: Guided patient with gentle performance of bed level exercises with 1-2 minutes rest in between Quads sets 5 sh x 5 for 2 sets Supine hip abduction x 5 for 2 sets B arm raises x 5 for 2 sets Assessment: Patient refused attempt at getting out of bed today. He did minimally today with frequent rests given to prevent further fatigue. Patient expressed concerns about being able to continue with PT but was agreeable to doing as little as possible and requested rest as often as possible. Plan of Care/Treatment Plan: 1-2x/day, 7 days/week x 1 week. Plan of care has been reviewed with the E LEARNING MANAGER providing the service under Physical Therapy direction. Initiate Physical Therapy intervention for pain management as needed, strengthening, bed mobility, transfers, gait, stairs, balance training, and use of assistive device. DISCHARGE RECOMMENDATIONS: PT TREATMENT CODE/TIME: 32581 x 23 minutes for 1 unit (11:45-12:08).
--- NOTE | 2025-05-28 13:31 | PGE_ITS ---
Date of Service Date of service: 05/28/25 Time of Service: 13:32 Assessment and Plan Assessment and plan (1) Urinary tract infection: Status: Acute Assessment and plan: -Urine cultures are growing enterococcus, which is not sensitive to cephalosporins, stopped ceftriaxone 05/26. -Sensitive to amox, but remote h/o swelling with PCN. Also floroquinolone allergy. -Successful amox challenge, ampicillin started 05/26 and changed to PO on 05/28 -Chang catheter was exchanged in ED (2) Diarrhea: Status: Acute Assessment and plan: -Admitted from May 04 through May 08 for diarrhea or illness with acute dehydration. -All fecal pathogen testing was negative -Symptoms improved on loperamide -He was seen outpatient in general surgery's office for referral for consideration of colonoscopy, thought to have been high risk given difficultly with hydration and potential worsening of kidney function -diarrhea had improved, but did incrase with restart antibiotics -CMV pending (can cause diarrhea in immune suppressed) (3) Abnormal computed tomography of abdomen and pelvis: Status: Acute Assessment and plan: -concern for liver masses, renal mass suspicious of neoplasm, RML/LLL lung nodules, abd pelvic ascites, enlarged prostate, gallstones - previous recommendation for f/u MRI and hemo/onc consultation - biospy scheduled 05/28 at as outpatient -goals of care discussed last visit, to remain full code for now -palliative care consult placed for continuity -Plan was to d/c AM 05/28, but patient more tired/weak as compared to previous days; will make sure appt is rescheduled prior to discharge (4) Enlarged prostate: Status: Acute Assessment and plan: -continue tamsulosin (5) Acute kidney injury superimposed on chronic kidney disease: Status: Acute Assessment and plan: -Cr up to 6.5 on admission (baseline ~5.5) -is now back to baseline as of AM 05/28 (6) Atrial fibrillation: Status: Chronic Assessment and plan: -on carvedilol and ASA -not anticoagulated asper patient and PCP (7) Diabetes mellitus: Status: Acute Assessment and plan: -SSI, CCD (8) Kidney transplant recipient: Status: Chronic Assessment and plan: -Continue home medications, mycophenolate and tacrolimus -Tacrolimus level 7.8 on 05/04/25 (9) Anemia: Status: Chronic Assessment and plan: -receives aranesp every 2 weeks -no acute bleeding, and received IV hydration -in setting of end stage renal disease, not on dialysis yet. Also some chronic blood loss -Due for aranesp 05/27 ordered routine dose. -Outpatient transfusion threshold is 8 (2 units if under 7) (10) DVT prophylaxis: Status: Acute Assessment and plan: -he is high risk, with stage 5 ckd will use heparin 5000 BID Subjective Subjective Interval history since last seen: Patient states that he is more tired and weak today as compared to previous days, but otherwise has no other complaints or concerns at this time. Exam Narrative Exam Narrative: fatigued, chronically ill appearing older gentleman sitting up in the bed in no acute distress, AOx4, heart RRR, lungs CTAB, abdomen soft, non-tender, non- distended Objective Last Vital Signs Temp 97.7 F 05/28/25 08:11 Pulse 81 05/28/25 08:11 Resp 20 05/28/25 08:11 BP 140/64 05/28/25 08:11 Pulse Ox 99 05/28/25 08:11 Laboratory Results - last 24 hr 05/28/25 06:43 WBC 4.11 L RBC 2.46 L Hgb 7.9 L Hct 24.0 L MCV 98 H MCH 32.1 MCHC 32.9 RDW 14.6 H Plt Count 75 L MPV 9.7 Sodium 130 L Potassium 3.7 Chloride 96 L Carbon Dioxide 19.0 L Anion Gap 15.0 H BUN 95 H* Creatinine 5.6 H* Est GFR (CKD-EPI 2020) 10.12 Glucose 103 Calcium 8.6 Magnesium 1.7 L Time Spent with Patient Time Spent with Patient: >50 minutes Time was spent: preparing to see the patient(eg.review tests), obtaining and/or reviewing separately otained hiistory, ordering medications,tests, procedures, referring, communicating with other health transitional care nurse, indepentently interpreting results, counseling the patient and care coordination
--- NOTE | 2025-05-28 15:10 | PHA.REVIEW2 ---
Pharmacy Admission Review Admission Clinical Review Admission Pharmacy Review: DVT prophylaxis (Acute) Diarrhea (Acute) Urinary tract infection (Acute) Abnormal computed tomography of abdomen and pelvis (Acute) Enlarged prostate (Acute) Diabetes mellitus (Acute) Acute kidney injury superimposed on chronic kidney disease (Acute) levofloxacin Allergy (Mild, Verified 05/24/25 12:13) Unknown sulfamethoxazole (From Bactrim) Allergy (Mild, Verified 05/24/25 12:13) Unknown trimethoprim (From Bactrim) Allergy (Mild, Verified 05/24/25 12:13) Unknown doxycycline Allergy (Unknown, Verified 05/24/25 12:13) Other (See Comment) tree nut Allergy (Unknown, Verified 05/24/25 12:13) Other (See Comment) clindamycin Allergy (Verified 05/24/25 12:13) Skin Rash ibuprofen Allergy (Verified 05/24/25 12:13) Other (See Comment) lisinopril Adverse Reaction (Verified 05/24/25 12:13) KIDNEY SHUT DOWN yaneth inhibitors Allergy (Mild, Uncoded 05/24/25 12:13) Skin Rash CATS & BIRDS Adverse Reaction (Intermediate, Uncoded 05/24/25 12:13) WHEEZING Resuscitation Status Full Code Height 6 ft Weight 105.1 kg Comments Comments/Follow Ups: Follow up on home med questions Pharmacy Admission Review Renal Dosing Renal Dosing: BUN 95 mg/dL (7-18) H* 05/28/25 06:43 Creatinine 5.6 mg/dL (0.70-1.30) H* 05/28/25 06:43 Medications needing adjustments: Intervened (CrCl 14.9 mL/min, SCR decreased from 5.9 and BUN decreased from 99) List of meds needing interventions: Renally adjusted ampicillin PO order from QID to q12h Anticoagulation Anticoagulation: Hgb 7.9 g/dL (13.5-17.5) L 05/28/25 06:43 Hct 24.0 % (40.0-50.0) L 05/28/25 06:43 Plt Count 75 10^3/uL (130-400) L 05/28/25 06:43 Creatinine 5.6 mg/dL (0.70-1.30) H* 05/28/25 06:43 DVT Prophylaxis: Reviewed (Hgb decreased from 8.8) Medications: Heparin (q12h) Relevant Labs Relevant Labs: Sodium 130 mmol/L (136-145) L 05/28/25 06:43 Potassium 3.7 mmol/L (3.5-5.1) 05/28/25 06:43 Chloride 96 mmol/L (98-107) L 05/28/25 06:43 Phosphorus 8.0 mg/dL (2.6-4.7) H 05/24/25 18:02 Magnesium 1.7 mg/dL (1.8-2.4) L 05/28/25 06:43 Electrolytes, C-Reactive P, ESR: Reviewed DM Control DM Control: Glucose 103 mg/dL (74-106) 05/28/25 06:43 Finger Stick Blood Glucose 105 1126 Finger Stick Blood Glucose 105 1126 Finger Stick Blood Glucose 116 0744 Finger Stick Blood Glucose 116 0744 DM Control: Reviewed Insulin Dosing, Diabetic Medication: Has order for SS insulin Cardiac Review Cardiac Review: Troponin I 26 ng/L (<or=76) 05/24/25 18:20 BP, HR, EF%: Reviewed (BP and HR WNL) List meds needing interventions: Has orders for amlodipine 10mg daily and carvedilol 12.5mg BID QTc Review QTc: Intervened (515 from 05/24/25) List meds needing interventions: Reached out to provider regarding prolonged QTc and scheduled Zofran order. Provider asked that the order for Zofran be discontinued. IV to PO Switch IV Medications: Reviewed Home Meds Home Med List reviewed: Intervened Relevent Home Meds Not ordered & why?: Flonase, folic acid, mupirocin cream, torsemide and triamcinolone cream Asked nurse to confirm doses of calcitriol and carvedilol at home - discrepancies between what is listed on home med list and what has been filled per external fill history. Waiting to hear back. Recently filled potassium but not on home med list. Asked nurse to confirm with patient, waiting to hear back. Asked nurse to confirm if patient is still taking amlodipine at home. Last filled 07/07/24 per external fill history. Waiting to hear back. Current Meds Current Medication Order Review: Intervened Comments: Discontinued Aranesp order - was a one time dose given yesterday Added 2nd PRN to Xopenex, loperamide and Duoneb orders per pharmacy protocol Pharmacy Antibiotic Review Relevant Labs: WBC 4.11 10^3/uL (4.4-10.8) L 05/28/25 06:43 Temperature 36.5 C Urine Culture (05/24/25) Organism 1 Enterococcus faecalis COLONY COUNT >100,000 COLONIES/ML Organism 2 Gram positive roque, mixed COLONY COUNT <10,000 COLONIES/ML Organism 3 Gram negative roque, mixed COLONY COUNT <10,000 COLONIES/ML [employer] Result Ampicillin S Ciprofloxacin S Daptomycin S Vancomycin S Pharmacy Antibiotic Activity: C/S review, IV to PO (Unasyn to ampicillin) and Renal function adjustment (ampicillon QID to q12h due to CrCl < 15) Comments: Patient is on ampicillin PO, day 3 total, for UTI. Was changed from Unasyn this morning. Renally adjusted ampicillin order. Comments Comments/Follow Ups: Follow up on home med questions
--- NOTE | 2025-05-28 19:08 | W.PC.ACHO ---
Registration Status: ADM IN Primary Language: Preferred Language: Greek ED Information & Data Chief Complaint AMS/LOC 05/24/25 12:45 Triage Note pt sent from home for 05/24/25 12:03 altered mental status weakness and cloudy urine onset yestrerday Medical / Surgical History (Last Reviewed 12/15/23 @ 19:09 by Rayo Warner) Nausea ACP (advance care planning) Palliative care encounter Hypoalbuminemia Thrombocytopenia Leukopenia MELISSA (obstructive sleep apnea) Left lower lobe pneumonia Sepsis Infection of amputation stump of right lower extremity Tubular adenoma of colon (02/01/17) Abscess of axilla (05/11/13) Personal history of allergy to other antibiotic agent Vitamin B 12 deficiency Adenomatous colon polyp History of colon polyps Lumbar back pain Erectile dysfunction Anxiety and depression Hydrocele Intention tremor Tricuspid insufficiency Obesity Stage 3 severe COPD by GOLD classification Hyperlipidemia Sciatica GERD (gastroesophageal reflux disease) MELISSA (obstructive sleep apnea) (Last Reviewed 12/15/23 @ 19:09 by Rayo Warner) Kidney transplant recipient Status post bilateral below knee amputation History of bilateral cataract extraction H/O sinus surgery History of cardiac catheterization History of appendectomy History of colonoscopy (~10/2020) History of below-knee amputation of both lower extremities Hx of amputation below knee Kidney transplant recipient EGD - MAC (04/02/16) Colonoscopy - MAC (02/01/17) Most Recent Vital Signs Temperature 36.5 C 05/28/25 08:11 Temperature Source Temporal Artery Scan 05/28/25 08:11 Pulse 81 05/28/25 08:11 Pulse 78 05/24/25 18:16 Respiratory Rate 20 05/28/25 08:11 Respiratory Effort Normal 05/24/25 20:58 Respiratory Depth Normal 05/24/25 20:58 Respiratory Pattern Normal 05/24/25 20:58 Blood Pressure 140/64 05/28/25 08:11 Blood Pressure Mean 89 05/28/25 08:11 Pulse Oximetry 99 05/28/25 08:11 Oxygen Delivery Method Room Air 05/28/25 08:11 Oxygen Flow Rate 0 05/28/25 08:11 Pain Level 0 05/28/25 04:56 Comment per nurse 05/26/25 15:44 Allergies levofloxacin Allergy (Mild, Verified 05/24/25 12:13) Unknown sulfamethoxazole (From Bactrim) Allergy (Mild, Verified 05/24/25 12:13) Unknown trimethoprim (From Bactrim) Allergy (Mild, Verified 05/24/25 12:13) Unknown doxycycline Allergy (Unknown, Verified 05/24/25 12:13) Other (See Comment) tree nut Allergy (Unknown, Verified 05/24/25 12:13) Other (See Comment) clindamycin Allergy (Verified 05/24/25 12:13) Skin Rash ibuprofen Allergy (Verified 05/24/25 12:13) Other (See Comment) lisinopril Adverse Reaction (Verified 05/24/25 12:13) KIDNEY SHUT DOWN yaneth inhibitors Allergy (Mild, Uncoded 05/24/25 12:13) Skin Rash CATS & BIRDS Adverse Reaction (Intermediate, Uncoded 05/24/25 12:13) WHEEZING Active Medications Generic Name Dose Route Start Last Admin Trade Name Freq PRN Reason Stop Dose Admin Acetaminophen 650 mg 05/24/25 18:51 05/27/25 16:38 Acetaminophen 325 Mg Tab PO 650 mg Q4H PRN PRN Administration Albuterol Sulfate 2 puff 05/26/25 09:47 05/28/25 00:43 Albuterol Hfa 8 Gm 60 Puff Inh IH 2 puffs Q4H PRN PRN Administration Amlodipine Besylate 10 mg 05/25/25 08:30 05/28/25 11:30 Amlodipine 10 Mg Tab PO 10 mg DAILY EVE Administration Aspirin 81 mg 05/24/25 20:00 05/27/25 20:56 Aspirin E.C. 81 Mg Tabec PO 81 mg HS EVE Administration Atorvastatin Calcium 20 mg 05/25/25 20:00 05/27/25 20:56 Atorvastatin 20 Mg Tab PO 20 mg HS EVE Administration Calcitriol 0.5 mcg 05/25/25 08:30 05/28/25 11:28 Calcitriol 0.25 Mcg Cap PO 0.5 mcg DAILY EVE Administration Carvedilol 12.5 mg 05/24/25 20:00 05/28/25 11:29 Carvedilol 6.25 Mg Tab PO 12.5 mg BID EVE Administration Colestipol HCl 1 gm 05/25/25 08:30 05/28/25 11:28 Colestipol 1 Gm Tab PO 1 gm DAILY EVE Administration Cyanocobalamin 1,000 mcg 05/25/25 08:30 05/28/25 11:29 Cyanocobalamin 500 Mcg Tab PO 1,000 mcg DAILY EVE Administration Dextrose/Water 0 gm 05/24/25 18:51 05/26/25 07:48 Dextrose 50%-Water 25 Gm/50 Ml Syr IVP 25 gm DIRECTED PRN Administration Heparin Sodium (Porcine) 5,000 units 05/26/25 12:00 05/28/25 11:36 Heparin 5,000 Units/Ml Vial SC Not Given Q12H EVE Insulin Aspart 0 units 05/25/25 08:00 05/28/25 18:26 Insulin Aspart 300 Units/3 Ml Pen SC Not Given 0800,1200,1700 [facility] Protocol Montelukast Sodium 10 mg 05/24/25 20:00 05/27/25 20:57 Montelukast 10 Mg Tab PO 10 mg HS EVE Administration Multivitamins 1 tab 05/25/25 08:30 05/28/25 11:30 Multivitamin Tab PO 1 tab DAILY EVE Administration Mycophenolate Mofetil 500 mg 05/24/25 20:00 05/28/25 11:29 Mycophenolate Mofetil 250 Mg Cap PO 500 mg BID EVE Administration Primidone 375 mg 05/25/25 20:00 05/27/25 20:54 Primidone 250 Mg Tab PO 375 mg HS EVE Administration Prochlorperazine Maleate 5 mg 05/26/25 20:00 05/28/25 11:34 Prochlorperazine 5 Mg Tab PO 5 mg Q8H EVE Administration Sodium Bicarbonate 1,300 mg 05/24/25 20:00 05/28/25 11:29 Sodium Bicarbonate 650 Mg Tab PO 1,300 mg BID EVE Administration Tacrolimus 1 mg 05/24/25 20:00 05/28/25 11:29 Tacrolimus 0.5 Mg Cap PO 1 mg Q12H EVE Administration Tamsulosin HCl 0.4 mg 05/25/25 08:30 05/28/25 11:29 Tamsulosin 0.4 Mg Capcr PO 0.4 mg DAILY EVE Administration Vitamin B Complex/Vitamin C 1 tab 05/24/25 20:00 05/28/25 11:29 Vitamins B Comp W/C Tab PO 1 tab BID EVE Administration IV IV Catheter Type [Right Saline Lock Antecubital] Diagnostics 05/28/25 Range/Units 06:43 WBC 4.11 L (4.4-10.8) 10^3/uL RBC 2.46 L (4.36-5.78) 10^6/uL Hgb 7.9 L (13.5-17.5) g/dL Hct 24.0 L (40.0-50.0) % MCV 98 H (80-95) fL MCH 32.1 (27.0-33.0) pg MCHC 32.9 (32.0-36.0) % RDW 14.6 H (11.8-14.1) % Plt Count 75 L (130-400) 10^3/uL MPV 9.7 (8.0-11.0) fL Sodium 130 L (136-145) mmol/L Potassium 3.7 (3.5-5.1) mmol/L Chloride 96 L (98-107) mmol/L Carbon Dioxide 19.0 L (21.0-32.0) mmol/L Anion Gap 15.0 H (3-11) mmol/L BUN 95 H* (7-18) mg/dL Creatinine 5.6 H* (0.70-1.30) mg/dL Est GFR (CKD-EPI 2020) 10.12 (mL/min/1.73m2) Glucose 103 (74-106) mg/dL Calcium 8.6 (8.5-10.1) mg/dL Magnesium 1.7 L (1.8-2.4) mg/dL CMV IgM Ab Pending [id number] Documentation Fingerstick Glucose Start: 05/24/25 18:51 Freq: .ACHS Status: Active Protocol: Activity Type Activity Date Activity User E-sign Co-sign Detail Recorded Client Recorded Date Recorded By Document 05/28/25 16:40 BKG DAEMON(3) [id number] 05/28/25 16:41 BKG DAEMON(4) Intake and Output - 24 Hour Total 05/24/25 11:52 thru 05/28/25 14:25 Intake Total 8596.667 Output Total 6025 Balance 2571.667 Weight 105.1 kg Intake: IV 6756.667 Oral 1840 Output: Urine 5325 Stool 700 Other: Urine Color Yellow Urine Appearance Clear Stool Size Moderate Stool Characteristics Liquid Urinary Catheter Urinary Catheter Date of 05/24/25 Insertion [Urethral (Chang)] Time of insertion [Urethral ( 16:00 Chang)] Falls Risk Assessment History of Falls Previous History 05/24/25 20:58 Contributing Factors Unstable,Impairments, 05/24/25 20:58 Incontinence,Medications Ambulatory Aids Uses ambulatory device + 05/24/25 20:58 Tubes/Lines With any additional score 05/24/25 20:58 Gait Evaluation W/any additional score 05/24/25 20:58 Cognition No cognitive impairment 05/24/25 20:58 Fall Total Score 97 05/24/25 20:58 Level of Risk Maximum Risk 05/24/25 20:58 Problems (Last Reviewed 12/15/23 @ 19:09 by Rayo Warner) DVT prophylaxis (Acute) Diarrhea (Acute) Urinary tract infection (Acute) Abnormal computed tomography of abdomen and pelvis (Acute) Enlarged prostate (Acute) Anemia (Chronic) Diabetes mellitus (Acute) Acute kidney injury superimposed on chronic kidney disease (Acute) Atrial fibrillation (Chronic) Kidney transplant recipient (Chronic) Notes 05/24/25 17:11 Nursing Notes by Lulú Vazquez Nursing Note:Family provided home medications Cellcept and Proraf which are not typically available from pharmacy. These medications were delivered to pharmacy, and Dr. Warner made aware of dosing for orders to be placed. Initialized on 05/24/25 17:11 - END OF NOTE v v v v v v v v v Sending and/or Receiving Nurses: Please use comment section below to note any information pertinent to the patient hand-off not included above. Information / Comments: Report received from: felt sweaty and light headed and lowered self to ground Mg was 1.6 and rrepleted. 144/96, HR 82, 17RR, 95%, 36.7C. SHEILA Zepeda
[2025-05-28 20:21] VITALS: BP 111/48; PULSE 85; RESP 22; TEMP 36.7; O2SAT 99
[2025-05-28] MEDS: Aspirin E.C. 81 MG TABEC PO (21:04)
[2025-05-28] MEDS: Montelukast 10 MG TAB PO (21:04)
[2025-05-28] MEDS: Primidone 250 MG TAB 375 MG PO (21:05)
[2025-05-28] MEDS: Atorvastatin 20 MG TAB PO (21:06)
[2025-05-28] MEDS: Acetaminophen 325 MG TAB 650 MG PO (22:45)
[2025-05-28] MEDS: Loperamide 2 MG CAP PO (22:45)
[2025-05-29] MEDS: Heparin 5,000 UNITS/ML VIAL 5000 UNITS SC ×3 (00:05→23:54)
[2025-05-29 03:43] VITALS: BP 116/54; PULSE 91; RESP 18; TEMP 36.5; O2SAT 98
[2025-05-29] MEDS: Loperamide 2 MG CAP PO ×3 (04:31→22:11)
[2025-05-29] MEDS: Prochlorperazine 5 MG TAB PO ×2 (04:31→22:10)
[2025-05-29] MEDS: Acetaminophen 325 MG TAB 650 MG PO ×2 (06:07→22:20)
[2025-05-29 06:44] LABS: HCT 25.2 % (40.0-50.0); HGB 8.0 g/dL (13.5-17.5); MCH 31.3 pg (27.0-33.0); MCHC 31.7 % (32.0-36.0); MCV 98 fL (80-95); MPV 9.8 fL (8.0-11.0); RBC 2.56 10^6/uL (4.36-5.78); RDW 14.5 % (11.8-14.1); RDW-SD 53.0 fL; WBC 5.79 10^3/uL (4.4-10.8)
[2025-05-29 06:59] LABS: Anion Gap 13.6 mmol/L (3-11); CO2 19.4 mmol/L (21.0-32.0); Calcium 8.9 mg/dL (8.5-10.1); Chloride 98 mmol/L (98-107); Glucose 161 mg/dL (74-106); Potassium 3.6 mmol/L (3.5-5.1); Sodium 131 mmol/L (136-145)
[2025-05-29 07:00] LABS: Platelet Count 88 10^3/uL (130-400)
[2025-05-29 07:07] LABS: BUN 97 mg/dL (7-18)
[2025-05-29] MEDS: Cyanocobalamin 500 MCG TAB 1000 MCG PO (08:53)
[2025-05-29] MEDS: Mycophenolate Mofetil 250 MG CAP 500 MG PO ×2 (08:53→22:12)
[2025-05-29] MEDS: Vitamins B Comp w/C TAB 1 TAB PO ×2 (08:53→22:11)
[2025-05-29] MEDS: Tamsulosin 0.4 MG CAPCR PO (08:53)
[2025-05-29] MEDS: Colestipol 1 GM TAB PO (08:53)
[2025-05-29] MEDS: Multivitamin TAB 1 TAB PO (08:54)
[2025-05-29] MEDS: Tacrolimus 0.5 MG CAP 1 MG PO ×2 (08:54→22:12)
[2025-05-29] MEDS: Sodium Bicarbonate 650 MG TAB 1300 MG PO ×2 (08:54→22:11)
[2025-05-29] MEDS: amLODIPine 10 MG TAB PO (08:54)
[2025-05-29] MEDS: Calcitriol 0.25 MCG CAP 0.5 MCG PO (08:54)
[2025-05-29] MEDS: Insulin Aspart 300 UNITS/3 ML PEN SC ×2 (08:55→12:04)
[2025-05-29] MEDS: Carvedilol 6.25 MG TAB 12.5 MG PO ×2 (08:55→22:11)
[2025-05-29 09:27] VITALS: BP 130/56; PULSE 48; RESP 16; TEMP 36.5; O2SAT 97
--- NOTE | 2025-05-29 10:27 | CMPROGNOTE_ITS ---
Date of service: 05/29/25 Time of Service: 17:56 Care Management Progress Note Progress Note Text Progress Note Text: CM met with Reuben, who was lying in bed and appeared somnolent. He was accompanied by Jeremie and her . Per Jeremie, Reuben had recently received a fentanyl patch. Per PT, Reuben declined his therapy session today and those in previous days. CM discussed with Jeremie the importance of Reuben’s participation in physical therapy in order to be considered for short-term rehabilitation placement. Jeremie stated she will discuss this with Reuben tomorrow. Palliative Care held a family meeting today with Reuben, Jeremie, and other family members to review goals of care (see Palliative documentation for details). Per Palliative Care, Reuben expressed his preference to pursue short-term rehabilitation and to proceed with his biopsy, which is now scheduled for 06/07/25. Referrals were previously sent to [facility] and [facility], both of which declined acceptance. Per Jeremie, she is agreeable to having referrals sent to additional facilities for consideration. CM will continue to follow. Discharge Potential Discharge Needs: Consult Consult Services Needed: Palliative and PCP F/U Appt Anticipated Barriers to Discharge: Medical Status Patient/Family Education Needs: Review discharge instructions, discuss Ask Me Three Transportation: RCT RCT Transportation: Wheel chair van Plan: Anticipate Reuben will be discharged to SNF vs. home with a resumption of home health services for RN, PT, OT and [employer], when medically cleared. He will follow up with his PCP and [facility] [place] and will transport with family. CM will follow and continue to assess for discharge needs. Social Determinants of Health Screening Will the Patient Participate in the Screening?: Declined to provide Anticipated HH Services Anticipated HH Services at Discharge [facility] Resumption, [employer], OT, PT and RN.
[2025-05-29] MEDS: Ampicillin 500 MG CAP PO ×2 (11:14→22:12)
--- NOTE | 2025-05-29 11:37 | PT.INNT ---
PT Notes Visit Reasons: UTI, Chronic Kidney Disease Patient too weak, exhausted , and unable to participate in any form of therapy today. PT put on hold for this morning. BRIGITTE Jo and Nurse Diana apprised. Patient has a palliative consult this afternoon at 2 PM.
--- NOTE | 2025-05-29 13:53 | PCNE_ITS ---
Date of service: 05/29/25 Time of Service: 14:00 History of Present Illness Narrative: Mr. Alexis is a 70 y/o currently hospitalized at [facility] 2/2 weakness and UTI; PMHx sig for bilateral BKA, h/o renal transplant (2005), a fib, CHF, COPD, DM, HTN; present today, [facility] course: presented to ED on 05/24 w/CC weakness and cloudy urine; work up consistent w/UTI, admitted for ongoing management; initially started on ceftriaxone, culture showed resistance, transitioned to ampicillin; PT recommendation for SNF vs ; ANSELMO initially, returned to baseline by 05/28 Recent hospitalization 2/2 weakness, ANSELMO and suspicion for new dx of metastatic cancer; weakness and diarrheal sxs ongoing for months today he has been mostly sleeping, lethargic, required sternal rub for arousal w/intended effect earlier; no oral intake - family report yesterday ate a grilled cheese; he is interested in sips of water today N: w/dry heaves this morning; on home was using oral compazine and zofran w/good effect; however not waking enough for meds today; BM: diarrheal sxs had been persistent at home, w/improved effect w/Imodium at home; ongoing diarrheal sxs w/incontinence in hospital, rectal tube placed; he would like this removed, causing discomfort. Imodium avail PRN, had one dose today w/good effect, reduced diarrheal output Activity: bed bound, has not been getting out of bed; requiring max assistance Pain: increased phantom limb pain and abdominal pain; extremely bad today; wants pain management Oncology: unfortunately he missed initial biopsy appt, rescheduled for 06/07 at ; currently his preference is continue w/biopsy; he is unsure what biopsy is for, does not entirely remember previous hospitalization concerns for malignancy; CKD: has spoken w/nephrology at ; they want to continue to hold dialysis, very close but still monitoring; he remains open minded to pursuing dialysis Social: Linda unfortunately currently hospitalized 2/2 A fib, had cardioversion in , hopeful for discharge soon; she has deferred decision making to Jeremie at this time bc she can't handle it; Reuben and Linda live alone in [place], she is unable to care for him at this time - Reuben has sons, he is not in close contact w/any of them, they do not visit; they are not aware of his current status. 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; she denies needs for additional supports today ACP: his biggest focus is getting some paperwork completed for family property, goal to avoid probate; Jeremie is helping w/this, plan for completing this tomorrow; he wants to make sure Linda is taken care of; he is comfortable w/Jeremie making decisions for him, he defers to her often - if he were dying he would want to be close to home, aware he is not safe at home currently; while his goal is to be home, he understands currently he does need more assistance than available, okay w/referrals to SNF, preference for local, if not avail defers to Jeremie - he wants his rectal tube removed - he would want to know if he had cancer, this feels important to him. - he does think he may be dying Assessment and Plan Assessment and plan (1) Phantom pain: Status: Acute Assessment and plan: trial fentanyl IV for pain; dose adjusted to 25mcg q4h PRN - would consider hydromorphone pending response, use in caution w/kidneys - goal to transition to oral hydromorphone prior to discharge (2) Liver mass: Status: Acute Assessment and plan: highly suspicious of metastatic cancer goal for biopsy, rescheduled for 06/07 reviewed concern for stage 4 cancer, not eligible for treatment d/t current status (3) Nausea: Assessment and plan: IV Zofran ordered continue oral antiemetics as tolerated (4) Diarrhea: Status: Acute Assessment and plan: scheduled Imodium TID w/4th dose avail PRN goal to control diarrhea and remove rectal tube, causing significant discomfort (5) CKD (chronic kidney disease), stage V: Status: Acute Assessment and plan: renal function returned to baseline family report nephrology aware, in regards to dialysis, very close but still monitoring - hydromorphone w/caution (6) Urinary tract infection: Status: Acute Assessment and plan: continue ampicillin (7) Kidney mass: Status: Acute (8) Lung nodule, multiple: Status: Acute (9) CHF (congestive heart failure): Status: Acute (10) Deficit in activities of daily living (ADL): Status: Acute Assessment and plan: unable to return home d/t no avail caregiver - continue SNF referrals (11) Palliative care encounter: Assessment and plan: PC to continue to follow, anticipate w/remain inpatient on Tuesday - to continue to review GOC, transition to VISUAL PRESENTATION MANAGER, discharge plan for hospice vs pursuing biopsy - anticipate Reuben could transition to actively dying prior to discharge, could remain inpatient for EOL care, pending next few days - sxs management: pain, nausea, diarrhea (12) ACP (advance care planning): Assessment and plan: reviewed concerns that Reuben is dying. He agrees. He would want to be close to home for EOL, location otherwise doesn't work. He does want to continue with pursuing a biopsy and some limited interventions for LST reviewed CODE status, he would not want CPR if his heart were to stop and would not want intubation if his lungs were to fail. We did not review other specific life sustaining treatments today. He did not want to complete a COLST form today. This conversation was witnessed by Jeremie, his niece/acting HCA and his nurse Diana. per Jeremie, Linda is currently hospitalized at . Jeremie offered for Linda to join call, and she deferred to Jeremie today. of note, previous conversations w/Linda and Reuben indicate they defer to Jeremie together often. He has been consistent w/deferring to her w/CM throughout hospital stay reviewed he is eligible for hospice. he can pivot at any time for comfort directed care. his current preference is to plan for discharge to a short term rehab to make his biopsy appointment reviewed goals of completing paperwork for property, other loose ends, priority for Reuben today, should be prioritized tomorrow; recommend remaining in current status (accepting some LST) w/o transition to VISUAL PRESENTATION MANAGER until this has been completed, for Reuben's comfort; Jeremie to coordinate Plan for palliative care f/u on Tuesday if remains inpatient Review of Systems Narrative: as per HPI PFSH All Active Problems (Updated 05/30/25 @ 00:03 by BKG DAEMON) Deficit in activities of daily living (ADL) (Acute) Diarrhea (Acute) Urinary tract infection (Acute) Kidney mass (Acute) Liver mass (Acute) Atrial flutter (Acute) CKD (chronic kidney disease), stage V (Acute) Catheter-associated urinary tract infection (Acute) Lung nodule, multiple (Acute) Abnormal chest xray (Acute) Abnormal computed tomography of abdomen and pelvis (Acute) Liver mass (Acute) Enlarged prostate (Acute) Cyst of left kidney (Acute) CKD (chronic kidney disease) (Chronic) History of pneumonia (Acute) Cough (Acute) Pneumonia (Acute) Anemia (Chronic) CAP (community acquired pneumonia) (Acute) Basal cell carcinoma (Acute) Delayed wound healing (Acute ~2019) burn left arm happened 2019 fistula near wound Abnormal electrocardiogram (Acute) Phantom pain (Acute) Tremor (Acute) per pCP treated with primidone RH HTN (hypertension) (Chronic) Diabetes mellitus (Acute) Edentulous (Acute) Esophageal foreign body (Acute) Food impaction of esophagus (Acute) Macrocytic anemia (Acute) Gastroparesis diabeticorum (Acute) COPD (chronic obstructive pulmonary disease) (Chronic) stage 3 severe 01/20/23 RH Chronic kidney disease (Chronic) Hypertension (Chronic) Hyperlipidemia (Chronic) CAD (coronary artery disease) (Chronic) GERD (gastroesophageal reflux disease) (Chronic) Asthma (Chronic) Chronic anxiety (Chronic) Chronic depression (Chronic) Intention tremor (Chronic) Status post appendectomy (Acute) Physical medicine and rehabilitation procedures (Acute 06/27/13) Dysphagia (Acute) CHF (congestive heart failure) (Acute) Diastolic CHF (Acute) Acute kidney injury superimposed on chronic kidney disease (Acute) Uncontrolled insulin dependent diabetes mellitus (Acute) Ambulatory dysfunction (Acute) Wenckebach second degree AV block (Acute) Fluid level behind tympanic membrane of left ear (Acute) Sensory hearing loss, bilateral (Acute) Tinnitus, bilateral (Acute) Osteoma of ear canal (Acute) Atrial fibrillation (Chronic) per pcp Pt had one episode 11/10 RH Kidney transplant recipient (Chronic) 2005 Medical History Nausea ACP (advance care planning) Palliative care encounter Hypoalbuminemia Thrombocytopenia Leukopenia MELISSA (obstructive sleep apnea) Left lower lobe pneumonia Sepsis Infection of amputation stump of right lower extremity Tubular adenoma of colon (02/01/17) Abscess of axilla (05/11/13) Personal history of allergy to other antibiotic agent Vitamin B 12 deficiency Adenomatous colon polyp History of colon polyps Lumbar back pain Erectile dysfunction Anxiety and depression Hydrocele Intention tremor Tricuspid insufficiency Obesity Stage 3 severe COPD by GOLD classification Hyperlipidemia Sciatica GERD (gastroesophageal reflux disease) MELISSA (obstructive sleep apnea) per PCP not using CPAP 01/20/23 RH Surgical History Kidney transplant recipient Status post bilateral below knee amputation History of bilateral cataract extraction 1999 H/O sinus surgery 2010 History of cardiac catheterization 2005 History of appendectomy 2012 History of colonoscopy (~10/2020) History of below-knee amputation of both lower extremities 2000 and 2010 Hx of amputation below knee Kidney transplant recipient 01/08/2014 EGD - MAC (04/02/16) Colonoscopy - MAC (02/01/17) Family History Father , cancer at 64 No problems noted. Brother , SM Cell Cancer No problems noted. Sister Breast cancer Mother No problems noted. Social History Smoking/Tobacco Use Status: Former Tobacco Use Quit Date: 07/25/90 Tobacco: How many years used: 15 Smoking risk assessment performed?: Yes Alcohol Intake: never Drug use: Never Substance use type: does not use Household members: spouse Housing: house What is your relationship status?: Panel score (0-1 are the most socially isolated patients): 1 Do you feel safe at home: Yes Do you feel safe in your relationship?: Yes Exam Narrative Exam Narrative: General: older adult, frail/ill appearing male, pale; lying in hospital bed, engages easily throughout, eyes remain closed most of time, lethargic HEENT: normocephalic, atraumatic; hearing appropriate w/elevated voice volume; dry MM, improved w/sips of water Resp: resp rate even and unlabored; speaks 1-2 sentences w/o SOB; no audible wheeze Neuro: AA, oriented to person, requires reorientation to place Psych: speech clear; thought process loose association, impoverished; insight/judgment limited Results Last Vital Signs Temp 97.7 F 05/29/25 09:27 Pulse 48 L 05/29/25 09:27 Resp 16 05/29/25 09:27 BP 130/56 L 05/29/25 09:27 Pulse Ox 97 05/29/25 09:27 Labs 05/29/25 05:57 05/29/25 05:57 Labs: Laboratory Results - last 24 hr 05/29/25 05:57 WBC 5.79 RBC 2.56 L Hgb 8.0 L Hct 25.2 L MCV 98 H MCH 31.3 MCHC 31.7 L RDW 14.5 H Plt Count 88 L MPV 9.8 Sodium 131 L Potassium 3.6 Chloride 98 Carbon Dioxide 19.4 L Anion Gap 13.6 H BUN 97 H* Creatinine 5.9 H* Est GFR (CKD-EPI 2020) 9.50 Glucose 161 H Calcium 8.9 Time Spent Time Spent with Patient Time Spent(min): 120
[2025-05-29] MEDS: Ondansetron 4 MG/2 ML VIAL IVP (16:07)
[2025-05-29] MEDS: fentaNYL 100 MCG/2 ML VIAL 200 MCG IVP (16:38)
[2025-05-29 20:44] VITALS: BP 113/52; PULSE 84; RESP 14; TEMP 36.5; O2SAT 97
[2025-05-29] MEDS: Aspirin E.C. 81 MG TABEC PO (22:10)
[2025-05-29] MEDS: Atorvastatin 20 MG TAB PO (22:10)
[2025-05-29] MEDS: Primidone 250 MG TAB 375 MG PO (22:11)
[2025-05-29] MEDS: Montelukast 10 MG TAB PO (22:12)
[2025-05-29] MEDS: Normal Saline Flush 10 ML SYR (23:05)
[2025-05-30 00:58] VITALS: BP 131/59; PULSE 80; RESP 20; TEMP 36.7; O2SAT 99
[2025-05-30] MEDS: fentaNYL 100 MCG/2 ML VIAL 25 MCG IVP ×4 (01:04→19:58)
[2025-05-30] MEDS: Loperamide 2 MG CAP PO ×4 (01:05→19:56)
[2025-05-30 01:21] VITALS: BP 107/61; RESP 20; O2SAT 98
[2025-05-30] MEDS: Prochlorperazine 5 MG TAB PO ×3 (05:17→19:57)
[2025-05-30 08:09] VITALS: BP 131/52; PULSE 50; RESP 24; TEMP 36.9; O2SAT 98
[2025-05-30] MEDS: Albuterol HFA 8 GM 60 PUFF INH IH (08:24)
[2025-05-30] MEDS: Cyanocobalamin 500 MCG TAB 1000 MCG PO (08:26)
[2025-05-30] MEDS: Sodium Bicarbonate 650 MG TAB 1300 MG PO ×2 (08:27→19:55)
[2025-05-30] MEDS: Calcitriol 0.25 MCG CAP 0.5 MCG PO (08:27)
[2025-05-30] MEDS: Tamsulosin 0.4 MG CAPCR PO (08:27)
[2025-05-30] MEDS: Colestipol 1 GM TAB PO (08:27)
[2025-05-30] MEDS: Tacrolimus 0.5 MG CAP 1 MG PO ×2 (08:27→19:56)
[2025-05-30] MEDS: Carvedilol 6.25 MG TAB 12.5 MG PO ×2 (08:27→19:55)
[2025-05-30] MEDS: amLODIPine 10 MG TAB PO (08:27)
[2025-05-30] MEDS: Mycophenolate Mofetil 250 MG CAP 500 MG PO ×2 (08:27→19:55)
[2025-05-30] MEDS: Multivitamin TAB 1 TAB PO (08:27)
[2025-05-30] MEDS: Vitamins B Comp w/C TAB 1 TAB PO ×2 (08:27→19:54)
[2025-05-30] MEDS: Insulin Aspart 300 UNITS/3 ML PEN SC ×3 (08:28→17:06)
[2025-05-30] MEDS: Normal Saline Flush 10 ML SYR (08:28)
--- NOTE | 2025-05-30 09:36 | CMPROGNOTE_ITS ---
Date of service: 05/30/25 Time of Service: 09:37 Care Management Progress Note Progress Note Text Progress Note Text: Reuben was lying in bed when CM met with him. He appeared sleepy and did not fully engage with CM. Reuben had agreed to widen the search for SNFs and CM asked if he had preferences or if he wanted CM to speak to Jeremie. He indicated that Luis could decide. CM contacted Jeremie by phone and discussed the situation. Reuben has stopped working with PT. They had to discharge him from their service today as he has not worked with them in days. He is exhausted and too weak to really be active. With that being said, he is not likely to meet rehab criteria at this point. Jeremie decided not to pursue any other referrals until we can see if Reuben will improve. CM informed her of the bed offer at [facility]. She will discuss the offer with Linda and Reuben and inform the covering care support representative of their decision tomorrow. Discharge Potential Discharge Needs: PCP F/U Appt Anticipated Barriers to Discharge: Bed availability Patient/Family Education Needs: Review discharge instructions, discuss Ask Me Three Transportation: Private vehicle Plan: Anticipate Reuben will either be discharged to a SNF or may possibly transition to comfort care. Another Palliative Care meeting is scheduled for tomorrow. CM will follow and continue to assess for discharge needs. Social Determinants of Health Screening Will the Patient Participate in the Screening?: Declined to provide
--- NOTE | 2025-05-30 10:22 | W.PM.PROGNOT ---
Date of Service Date of service: 05/30/25 Time of Service: 10:22 Assessment and Plan Assessment and plan (1) Urinary tract infection: Status: Acute Assessment and plan: -Urine cultures are growing enterococcus, which is not sensitive to cephalosporins, stopped ceftriaxone 05/26. -Sensitive to amox, but remote h/o swelling with PCN. Also floroquinolone allergy. -Successful amox challenge, ampicillin started 05/26 and changed to PO on 05/28 -Chang catheter was exchanged in ED (2) Diarrhea: Status: Acute Assessment and plan: -Admitted from May 04 through May 08 for diarrhea or illness with acute dehydration. -All fecal pathogen testing was negative -Symptoms improved on loperamide -He was seen outpatient in general surgery's office for referral for consideration of colonoscopy, thought to have been high risk given difficultly with hydration and potential worsening of kidney function -diarrhea had improved, but did incrase with restart antibiotics -CMV pending (can cause diarrhea in immune suppressed) (3) Abnormal computed tomography of abdomen and pelvis: Status: Acute Assessment and plan: -concern for liver masses, renal mass suspicious of neoplasm, RML/LLL lung nodules, abd pelvic ascites, enlarged prostate, gallstones - previous recommendation for f/u MRI and hemo/onc consultation - biospy scheduled 05/28 at as outpatient -goals of care discussed with Palliative Care; now DNR/DNI -Patient seen by Palliative care, please see their notes for details. Patient expressing understanding that he is very sick and likely dying, though is not ready to make any decision on BUSINESS PROCESS COORDINATOR/Hospice just yet. Plan to continue to treat pain and medical conditions, Palliative will reassess patient tomorrow 05/31. (4) Enlarged prostate: Status: Acute Assessment and plan: -continue tamsulosin (5) Acute kidney injury superimposed on chronic kidney disease: Status: Acute Assessment and plan: -Cr up to 6.5 on admission (baseline ~5.5) -is now back to baseline as of AM 05/28 (6) Atrial fibrillation: Status: Chronic Assessment and plan: -on carvedilol and ASA -not anticoagulated asper patient and PCP (7) Diabetes mellitus: Status: Acute Assessment and plan: -SSI, CCD (8) Kidney transplant recipient: Status: Chronic Assessment and plan: -Continue home medications, mycophenolate and tacrolimus -Tacrolimus level 7.8 on 05/04/25 (9) Anemia: Status: Chronic Assessment and plan: -receives aranesp every 2 weeks -no acute bleeding, and received IV hydration -in setting of end stage renal disease, not on dialysis yet. Also some chronic blood loss -Due for aranesp 05/27 ordered routine dose. -Outpatient transfusion threshold is 8 (2 units if under 7) (10) DVT prophylaxis: Status: Deleted Assessment and plan: -he is high risk, with stage 5 ckd will use heparin 5000 BID Subjective Subjective Interval history since last seen: Patient states that he is a little tired today, but is happy that his pain regimen has been working for him. At this time he has no other complaints or concerns. Exam Narrative Exam Narrative: fatigued, chronically ill appearing older gentleman sitting up in the bed in no acute distress, AOx4, heart RRR, lungs CTAB, abdomen soft, non-tender, non-distended Objective Last Vital Signs Temp 98.4 F 05/30/25 08:09 Pulse 50 L 05/30/25 08:09 Resp 24 05/30/25 08:09 BP 131/52 L 05/30/25 08:09 Pulse Ox 98 05/30/25 08:09 Time Spent with Patient Time Spent with Patient: >50 minutes Time was spent: preparing to see the patient(eg.review tests), obtaining and/or reviewing separately otained hiistory, ordering medications,tests, procedures, referring, communicating with other health career technical education teacher, indepentently interpreting results, counseling the patient and care coordination
[2025-05-30] MEDS: Ampicillin 500 MG CAP PO ×2 (11:05→22:22)
--- NOTE | 2025-05-30 11:27 | INDS_ITS ---
PT Notes Visit Reasons: UTI, Chronic Kidney Disease Physical Therapy Inpatient Discharge Summary Date: 05/30/2025 Referring Doctor: Shandra Jiménez NP PT Orders: PT CONSULT:Eval/Treat Precautions: Fall. Standard. Activity as tolerated. Short B transtibial amputation. 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 Patient was admitted for management of UTI, diarhea, neoplasm in liver, CKD stage V, unmanaged diabetes C.and anemia. Subjective: Exhausted, did not want to do anything today. Complained about his bottom hurting at site of rectal tube insertion. Complained about generalized pain. When asked if there was anything PT could do for him, he responded take my pain away. Objective: General Observation: Resting in bed, appeared exhausted. Facial color very pale. Mental Status: Drowsy and unable to stay awake. Did not want to participate in anything, dismissive. Pain: Generalized body malaise and bottom pain Vital Signs: Closely monitored by nursing staff ROM: Unable to test at this time due to decreased level of attention Strength: Unable to test at this time due to decreased level of attention Bed Mobility/Transfers: Unable to test at this time due to decreased level of attention Gait: Deferred due to safety concerns and patient refusal Balance: Unable to test Special Tests: Mobility Limitations Standardized Measure [facility] AM-PAC 6 clicks Basic Mobility Inpatient Short Form: Raw Score: 6 CMS Score: 100% deficit Informed Consent/Education: Patient verbalized not wanting to do anything and wanting to be comfortable Assessment: Physical therapy is no longer beneficial for client hence this discharge. Patient demonstrated further functional and medical decline which have made participation in PT physically impractical and very difficult. Patient has refused to get out of bed to try transfer to chair since start of care due to worsening weakness and medical condition. Goals: Goals X1 week 1. Supine-Sit independent NOT MET, DISCHARGE 2. Sit-Supine independent NOT MET, DISCHARGE 3. Sit-Stand independent NOT MET, DISCHARGE 4. Stand-Sit independent with FWW NOT MET, DISCHARGE 5. Bed-Chair independent with FWW NOT MET, DISCHARGE 6. Chair-Bed independent with FWW NOT MET, DISCHARGE 7. Independent gait on level surface with use of FWW for at least 15 feet without report of pain nor dyspnea8. Independent with home exercise program NOT MET, DISCHARGE 8. Good static and dynamic standing balance/tolerance NOT MET, DISCHARGE Plan of Care/Treatment Plan: D/C PT services with patient lacking demonstrable functional benefit from planned intervention. Dr. Brady, BRIGITTE Serrato, and Nurse Ayers have all been apprised of plan. DISCHARGE RECOMMENDATIONS: D/C to LTC requiring total assistance with all bed mobility tasks. TREATMENT CODE/TIME: No charge was made in the completion of this discharge summary.
[2025-05-30 13:20] LABS: CMV Ab, IgM Positive (Negative)
[2025-05-30] MEDS: Normal Saline Flush 10 ML SYR IVP ×2 (13:44→20:00)
[2025-05-30] MEDS: Montelukast 10 MG TAB PO (19:54)
[2025-05-30] MEDS: Aspirin E.C. 81 MG TABEC PO (19:56)
[2025-05-30] MEDS: Atorvastatin 20 MG TAB PO (19:56)
[2025-05-30] MEDS: Acetaminophen 325 MG TAB 650 MG PO (19:57)
[2025-05-30] MEDS: Primidone 250 MG TAB 375 MG PO (19:58)
[2025-05-30 20:24] VITALS: BP 140/83; PULSE 60; RESP 18; TEMP 36.2; O2SAT 100
[2025-05-31] VITALS (10 sets, daily range): BP systolic 128–144; BP diastolic 55–76; PULSE 78–89; RESP 15–18; TEMP 36–36.8; O2SAT 98–100
[2025-05-31] MEDS: Acetaminophen 325 MG TAB 650 MG PO ×3 (00:52→14:13)
[2025-05-31] MEDS: fentaNYL 100 MCG/2 ML VIAL 25 MCG IVP ×5 (00:53→19:39)
[2025-05-31] MEDS: Normal Saline Flush 10 ML SYR IVP ×3 (00:54→19:40)
[2025-05-31] MEDS: Heparin 5,000 UNITS/ML VIAL 5000 UNITS SC (01:30)
[2025-05-31] MEDS: Prochlorperazine 5 MG TAB PO ×3 (05:38→19:53)
[2025-05-31 07:00] LABS: HCT 22.0 % (40.0-50.0); MCH 30.2 pg (27.0-33.0); MCHC 30.9 % (32.0-36.0); MCV 98 fL (80-95); MPV 9.5 fL (8.0-11.0); RBC 2.25 10^6/uL (4.36-5.78); RDW 15.0 % (11.8-14.1); RDW-SD 54.0 fL; WBC 4.44 10^3/uL (4.4-10.8)
[2025-05-31 07:21] LABS: ALT 15 U/L (16-63); AST 18 U/L (15-37); Albumin 1.4 g/dL (3.4-5.0); Alkaline Phosphatase 316 U/L (46-116); Anion Gap 15.4 mmol/L (3-11); Bilirubin, Total 0.4 mg/dL (0.2-1.0); CO2 18.6 mmol/L (21.0-32.0); Calcium 9.1 mg/dL (8.5-10.1); Chloride 98 mmol/L (98-107); Glucose 192 mg/dL (74-106); Potassium 3.7 mmol/L (3.5-5.1); Sodium 132 mmol/L (136-145); Total Protein 5.9 g/dL (6.4-8.2)
[2025-05-31 07:22] LABS: HGB 6.8 g/dL (13.5-17.5); Platelet Count 84 10^3/uL (130-400)
[2025-05-31 07:27] LABS: BUN 105 mg/dL (7-18)
[2025-05-31] MEDS: Insulin Aspart 300 UNITS/3 ML PEN SC ×2 (10:05→12:10)
--- NOTE | 2025-05-31 11:01 | PDOC.CMPRO ---
Date of service: 05/31/25 Time of Service: 15:44 Care Management Progress Note Progress Note Text Progress Note Text: The patient was in bed receiving nursing care when CM attempted to meet with him. CM met with Jeremie, who inquired about [facility] to assist with managing the patient’s personal affairs. CM provided information regarding [facility] [address] as a potential resource. Per report, CMV test returned positive. 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 CM will continue to follow. Discharge Potential Discharge Needs: Consult Consult Services Needed: Palliative and PCP F/U Appt Anticipated Barriers to Discharge: Medical Status Patient/Family Education Needs: Review discharge instructions, discuss Ask Me Three Transportation: RCT RCT Transportation: Wheel chair van Plan: Reuben will remain at [facility] through end of life care. CM will follow and continue to assess for discharge needs. Social Determinants of Health Screening Will the Patient Participate in the Screening?: Declined to provide
--- NOTE | 2025-05-31 13:36 | W.PALPGNOTE ---
Date of service: 05/31/25 Time of Service: 13:36 Assessment and Plan Assessment and plan (1) Urinary tract infection: Status: Acute Assessment and plan: -Urine cultures are growing enterococcus, which is not sensitive to cephalosporins, stopped ceftriaxone 05/26. -Sensitive to amox, but remote h/o swelling with PCN. Also floroquinolone allergy. -Successful amox challenge, ampicillin started 05/26 and changed to PO on 05/28 -Chang catheter was exchanged in ED -Antibiotics can be discontinued in the setting of transition to HAIR CLIPPER POWER. (2) Diarrhea: Status: Acute Assessment and plan: CMV came back positive. Hospitalist discussed with ID at [facility], does not appear to be dissemintaed CMV. (3) Abnormal computed tomography of abdomen and pelvis: Status: Acute Assessment and plan: -concern for liver masses, renal mass suspicious of neoplasm, RML/LLL lung nodules, abd pelvic ascites, enlarged prostate, gallstones Reuben recognizes that he likely has cancer but getting Bx/treatment appears unlikely. this is likely the source of his abd pain. start fentanyl patch 12 mcg/hr, titrate as needed He has decided to transition to HAIR CLIPPER POWER and remain here at [facility]. (4) Enlarged prostate: Status: Acute (5) Acute kidney injury superimposed on chronic kidney disease: Status: Acute Assessment and plan: -Cr up to 6.5 today (6) Atrial fibrillation: Status: Chronic Assessment and plan: not on AC. (7) Diabetes mellitus: Status: Acute (8) Kidney transplant recipient: Status: Chronic Assessment and plan: On mycophenolate and tacrolimus -Tacrolimus level 7.8 on 05/04/25 (9) Anemia: Status: Chronic Assessment and plan: -receives aranesp every 2 weeks -in setting of end stage renal disease, not on dialysis yet. Also some chronic blood loss He received blood today for Hgb 6.8 (10) Palliative care encounter: (11) ACP (advance care planning): Assessment and plan: Reviewed overall status. He understands that he is nearing the end of his life. He has agreed to transition to comfort care and remain here at the hospital. This was discussed with his HCAs, Linda and Jeremie. Comfort orders placed. Palliatve will continue to follow. Subjective Subjective Interval history since last seen: Reuben is seen for Palliative f/u. He likely has metastatic cancer as well as renal failure with previous renal transplant. He was seen to revisit [facility]. He was seen in his hospital room. He was alone at the time of he visit. He was finishing a blood transfusion. He did not appear to be comfortable. He tried to reposition himself in bed and grimaced frequently. He does not feel his pain is controlled. He rates his pain at 5/10, in his stomach. He took a sip of water during the visit and coughed with the PO intake. He is eating very little, he refused his lunch today. Discussed his overall status. Reviewed renal function, likely metastatic cancer. Also discussed that a biopsy would need to be done outpatient and he would have to be well enough to get out of the hospital then to [facility]. Also reviewed that his kidneys and functional status are likely too poor for cancer treatment to be offered. He would like likely be a candidate for cancer treatment due to this. When questioned where he would want to be through end of life, he states at [facility]. His is unwell and just got discharged from [facility] herself. He verbalizes agreement with transition for comfort care here at [facility]. Phone call to his , Linda and his niece, Jeremie per his request, to discuss these changes. His HCA agree with the plan. Exam Narrative Exam Narrative: General: pleasant, elderly man who appears frail, pale and chronically ill. He is lying in hospital bed with HOB elevated. He appears uncomfortable, grimacing, repositioning frequently. HEENT: normocephalic, atraumatic, eyes remained closed for most of the visit. Neck: supple Respiratory: respirations appear even and unlabored at rest. Ext: bilateral BKAs. Objective Last Vital Signs Temp 36.7 C 05/31/25 12:22 Pulse 81 05/31/25 12:22 Resp 17 05/31/25 12:22 BP 132/68 05/31/25 12:22 Pulse Ox 100 05/31/25 12:22 Laboratory Results - last 24 hr 05/28/25 05/31/25 05/31/25 06:43 06:28 08:55 WBC 4.44 RBC 2.25 L Hgb 6.8 L* Hct 22.0 L MCV 98 H MCH 30.2 MCHC 30.9 L RDW 15.0 H Plt Count 84 L MPV 9.5 Sodium 132 L Potassium 3.7 Chloride 98 Carbon Dioxide 18.6 L Anion Gap 15.4 H BUN 105 H* Creatinine 6.5 H* Est GFR (CKD-EPI 2020) 8.46 Glucose 192 H Calcium 9.1 Total Bilirubin 0.4 AST 18 ALT 15 L Alkaline Phosphatase 316 H Total Protein 5.9 L Albumin 1.4 L CMV IgM Ab Positive A ABO/Rh O Positive Antibody Screen NEGATIVE Crossmatch See Detail
[2025-05-31] MEDS: Loperamide 2 MG CAP PO ×2 (14:19→19:53)
--- NOTE | 2025-05-31 15:29 | W.PM.PROGNOT ---
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 -Sensitive to amox, but remote h/o swelling with PCN. Also floroquinolone allergy. 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 as noted above (4) Abnormal computed tomography of abdomen and pelvis: Status: Acute Assessment and plan: -concern for liver masses, renal mass suspicious of neoplasm, RML/LLL lung nodules, abd pelvic ascites, enlarged prostate, gallstones - previous recommendation for f/u MRI and hemo/onc consultation - biospy scheduled 05/28 at as outpatient -goals of care discussed with Palliative Care; now DNR/DNI (5) Enlarged prostate: Status: Acute Assessment and plan: -continue tamsulosin (6) Acute kidney injury superimposed on chronic kidney disease: Status: Acute Assessment and plan: -Cr up to 6.5 on admission (baseline ~5.5) (7) Atrial fibrillation: Status: Chronic Assessment and plan: -home meds discontinued as 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 He states that he is in some pain and that he is very tired. Exam Narrative Exam Narrative: fatigued, chronically ill appearing older gentleman sitting up in the bed in no acute distress, AOx4, heart RRR, lungs CTAB, abdomen soft, non-tender, non-distended Objective Last Vital Signs Temp 98.1 F 05/31/25 12:22 Pulse 81 05/31/25 14:21 Resp 17 05/31/25 12:22 BP 137/67 05/31/25 14:21 Pulse Ox 99 05/31/25 14:21 Laboratory Results - last 24 hr 05/31/25 05/31/25 06:28 08:55 WBC 4.44 RBC 2.25 L Hgb 6.8 L* Hct 22.0 L MCV 98 H MCH 30.2 MCHC 30.9 L RDW 15.0 H Plt Count 84 L MPV 9.5 Sodium 132 L Potassium 3.7 Chloride 98 Carbon Dioxide 18.6 L Anion Gap 15.4 H BUN 105 H* Creatinine 6.5 H* Est GFR (CKD-EPI 2020) 8.46 Glucose 192 H Calcium 9.1 Total Bilirubin 0.4 AST 18 ALT 15 L Alkaline Phosphatase 316 H Total Protein 5.9 L Albumin 1.4 L ABO/Rh O Positive Antibody Screen NEGATIVE Crossmatch See Detail Time Spent with Patient Time Spent with Patient: >50 minutes Time was spent: preparing to see the patient(eg.review tests), obtaining and/or reviewing separately otained hiistory, ordering medications,tests, procedures, referring, communicating with other health care specialist, indepentently interpreting results, counseling the patient and care coordination
[2025-05-31] MEDS: fentaNYL 12 MCG PATCH TD (17:02)
[2025-05-31] MEDS: Scopolamine 1 MG/3 DAYS PATCH TD (17:41)
[2025-05-31] MEDS: Sodium Bicarbonate 650 MG TAB 1300 MG PO (19:58)
[2025-05-31] MEDS: Montelukast 10 MG TAB PO (20:08)
[2025-06-01] MEDS: fentaNYL 100 MCG/2 ML VIAL 25 MCG IVP ×2 (01:57→06:49)
[2025-06-01] MEDS: Normal Saline Flush 10 ML SYR IVP ×6 (01:58→20:59)
[2025-06-01] MEDS: Acetaminophen 325 MG TAB 650 MG PO ×3 (01:58→19:27)
[2025-06-01] MEDS: Glycopyrrolate 0.2 MG/1 ML VIAL IVP (02:24)
[2025-06-01] MEDS: Prochlorperazine 5 MG TAB PO ×2 (03:46→19:27)
--- NOTE | 2025-06-01 08:15 | W.NUTRFU ---
Date of service: 06/01/25 Time of Service: 08:15 Nutrition Note NOTE: Reuben and his known to me from prior admissions and through outpatient nutrition services. Kitchen has been support Reuben's intake with a consistent CHO diet and offering mugs for soups/broths and other drinks, as well as weighted utensils for ease of use. 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 Glucose targets will be more relaxed and is currently on sliding scale for corrections. no aggressive nutrition intervention planned at this time. will continue to offer preferred food choices, will provide hospice cart for visiting family/friends as nursing assessess is appropriate. Time Spent in Nutritional Counseling and Treatment: 0
--- NOTE | 2025-06-01 09:35 | PGE_ITS ---
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 -Sensitive to amox, but remote h/o swelling with PCN. Also floroquinolone allergy. 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 as noted above (4) Abnormal computed tomography of abdomen and pelvis: Status: Acute Assessment and plan: -concern for liver masses, renal mass suspicious of neoplasm, RML/LLL lung nodules, abd pelvic ascites, enlarged prostate, gallstones - previous recommendation for f/u MRI and hemo/onc consultation - biospy scheduled 05/28 at as outpatient -goals of care discussed with Palliative Care; now DNR/DNI (5) Enlarged prostate: Status: Acute Assessment and plan: -continue tamsulosin (6) Acute kidney injury superimposed on chronic kidney disease: Status: Acute Assessment and plan: -Cr up to 6.5 on admission (baseline ~5.5) (7) Atrial fibrillation: Status: Chronic Assessment and plan: -home meds discontinued as 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 Exam Narrative Exam Narrative: fatigued, chronically ill appearing older gentleman sitting up in the bed in no acute distress, AOx4, heart RRR, lungs CTAB, abdomen soft, non-tender, non- distended Objective Last Vital Signs Temp 96.8 F L 05/31/25 23:54 Pulse 78 05/31/25 23:54 Resp 16 05/31/25 23:54 BP 144/55 H 05/31/25 23:54 Pulse Ox 99 05/31/25 23:54 Laboratory Results - last 24 hr 05/31/25 08:55 ABO/Rh O Positive Antibody Screen NEGATIVE Crossmatch See Detail Time Spent with Patient Time Spent with Patient: >50 minutes Time was spent: preparing to see the patient(eg.review tests), obtaining and/or reviewing separately otained hiistory, ordering medications,tests, procedures, referring, communicating with other health patient care nursing assistant, indepentently interpreting results, counseling the patient and care coordination
[2025-06-01] MEDS: LORazepam 20 MG/10 ML VIAL IV/SC ×2 (09:44→19:32)
[2025-06-01] MEDS: fentaNYL 100 MCG/2 ML VIAL 50 MCG IVP ×5 (12:12→23:13)
[2025-06-02] MEDS: fentaNYL 100 MCG/2 ML VIAL 50 MCG IVP ×4 (01:18→08:03)
[2025-06-02] MEDS: Prochlorperazine 5 MG TAB PO ×2 (03:26→11:33)
[2025-06-02] MEDS: Normal Saline Flush 10 ML SYR IVP ×2 (05:25→16:36)
[2025-06-02] MEDS: Albuterol HFA 8 GM 60 PUFF INH IH (07:27)
[2025-06-02] MEDS: Sodium Bicarbonate 650 MG TAB 1300 MG PO (08:02)
[2025-06-02] MEDS: Tamsulosin 0.4 MG CAPCR PO (08:03)
[2025-06-02] MEDS: Loperamide 2 MG CAP PO (08:03)
[2025-06-02] MEDS: HYDROmorphone 200 MG in CADD PUMP CASSETTE 1 EACH, Normal Saline 80 ML SC_INF (10:20)
[2025-06-02] MEDS: Ondansetron 4 MG/2 ML VIAL IVP (10:34)
[2025-06-02] MEDS: Acetaminophen 325 MG TAB 650 MG PO (11:33)
[2025-06-02] MEDS: Patch Removal 1 EACH TD (12:38)
--- NOTE | 2025-06-02 13:59 | W.PM.PROGNOT ---
Date of Service Date of service: 06/02/25 Time of Service: 08:00 Assessment and Plan Assessment and plan (1) Comfort measures only status: Status: Acute Assessment and plan: -after prolonged discussion with Palliative Care patient has decided to transition to SURFACE PLATE INSPECTOR status (please see Palliative Care note for further details) -stop checking vitals signs, cluster care -fent patch 12.5mg, IV fent 50mcg Q2hr PRN June 02: stopped fentanyl in favor of hydromorphone CADD SC. (2) Urinary tract infection: Status: Acute Assessment and plan: -Urine cultures are growing enterococcus, which is not sensitive to cephalosporins, stopped ceftriaxone 05/26. -Sensitive to amox, but remote h/o swelling with PCN. Also floroquinolone allergy. 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 as noted above (4) Abnormal computed tomography of abdomen and pelvis: Status: Acute Assessment and plan: -concern for liver masses, renal mass suspicious of neoplasm, RML/LLL lung nodules, abd pelvic ascites, enlarged prostate, gallstones - previous recommendation for f/u MRI and hemo/onc consultation - biospy scheduled 05/28 at as outpatient -goals of care discussed with Palliative Care; now DNR/DNI (5) Enlarged prostate: Status: Acute Assessment and plan: -continue tamsulosin (6) Acute kidney injury superimposed on chronic kidney disease: Status: Acute Assessment and plan: -Cr up to 6.5 on admission (baseline ~5.5) (7) Atrial fibrillation: Status: Chronic Assessment and plan: -home meds discontinued as 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 Torres is having increased pain and is now on dilaudid pump. Multiple family members visiting throughout the day. Exam Narrative Exam Narrative: General: This is a fatigued, chronically ill man in some distress due to pain HEENT: Normocephalic, atraumatic CV: RRR Resp: CTAB Abd: soft, NTND MSK: voluntary motion x4 Neuro: awake, alert, no focal deficits Objective Last Vital Signs Temp 36 C L 05/31/25 23:54 Pulse 78 05/31/25 23:54 Resp 16 05/31/25 23:54 BP 144/55 H 05/31/25 23:54 Pulse Ox 99 05/31/25 23:54 Time Spent with Patient Time Spent with Patient: 25-34 minutes Time was spent: preparing to see the patient(eg.review tests), obtaining and/or reviewing separately otained hiistory, ordering medications,tests, procedures, referring, communicating with other health technical healthcare consultant, indepentently interpreting results, counseling the patient and care coordination
--- NOTE | 2025-06-02 16:21 | NUR.NOTE ---
Access chart to reconcile EKG orders with EKG's in [facility]. Duplicate order cancelled. Nursing Note:
[2025-06-02] MEDS: LORazepam 20 MG/10 ML VIAL IV/SC (16:36)
[2025-06-03] MEDS: LORazepam 20 MG/10 ML VIAL IV/SC ×3 (01:30→10:48)
[2025-06-03] MEDS: Normal Saline Flush 10 ML SYR IVP ×4 (01:33→10:47)
[2025-06-03] MEDS: Glycopyrrolate 0.2 MG/1 ML VIAL IVP ×4 (01:34→08:49)
--- NOTE | 2025-06-03 11:44 | PDOC.CMPRO ---
Date of service: 06/03/25 Time of Service: 11:46 Care Management Progress Note Progress Note Text Progress Note Text: Reuben this morning surrounded by family. Final arrangements are being coordinated by HCA. CM will continue to follow and support the family as necessary. Social Determinants of Health Screening Will the Patient Participate in the Screening?: Declined to provide
--- NOTE | 2025-06-03 12:27 | EXPE_ITS ---
Date of service: 06/03/25 Time of Service: 11:15 Discharge Plan Disposition Patient Disposition: Discharge Details Reason For Visit: UTI, Chronic Kidney Disease Admit Date/Time: 05/24/25 17:42 Admit Provider: Rayo Warner Attending Provider: Rayo Warner Primary Care Provider: [facility] Course Hospital Course: Leroy Torres, a 70 year old man, presented on May 24 in the [facility] ED with weakness and concern for UTI. Patient's medical history includes 2006 kidney transplant with worsening stage V kidney disease; he had been receiving Darbepoetin cristy infusion treatment for severe anemia. Patient did not agree to dialysis and his wishes were respected. On arrival he was in the process of cardiac workup for ongoing coronary artery disease. Patient also with insulin- dependent diabetes, hypertension and COPD. Recent hospitalization for dehydration due to diarrheal illness. He was admitted to the hospital for urinary tract infection, acute kidney injury, requiring supportive care. He continued to have loose stools throughout his hospitalization. Initially, he was thought to be improving sufficiently to pursue planned liver biopsy at [facility]. On May 30, patient chose to be placed on comfort measures only, declining further interventions. Family was present at bedside during this discussion and remained present during the rest of his hospital course. His pain needs were addressed with a continuous pump for narcotics. On June 03 he passed peacefully. Discharge Data Cause of : Renal failure Discharge Date/Time-TO BE ENTERED AT DEPARTURE: 06/03/25 11:06 Discharge Sum: Prov Provider Consults: 05/24/25 18:51 [employer] Consult [CONS] Routine Consulting Provider: [facility] Nutrition Consultation Status:: Follow-up needed Clarification:: Manage/follow per spec. Reason for consult:: Diabetes management, diabetes education 05/29/25 09:34 Palliative Care Consult [CONS] Routine Consultation Status:: Follow-up needed Clarification:: Manage/follow per spec. Reason for consult:: undiagnosed CA, CKD Discharge Sum: Diag PCOD Cause of : Renal failure Contributing Factors (1) Acute kidney injury superimposed on chronic kidney disease: (2) Urinary tract infection: (3) Diarrhea: (4) Atrial fibrillation: (5) Diabetes mellitus: (6) Kidney transplant recipient: (7) Anemia: Discharge Sum: Summary Date and Time Admission Date: 05/24/25 Date of : 06/03/25 Time of : 11:15 Summary Details: On May 30, patient chose to stop pursuing interventions for his chronic diseases which had worsened over many years. His renal disease had reached the point where he would have been required to start hemodialysis; his choice was to defer this treatment as he felt it would not improve his quality of life. With the support of his family he was placed on comfort measures, with care focus changed to pain management. Over the next few days he became comatose. On June 03, with multiple family members at bedside, he passed peacefully and was declared at 11:15. Additional Data Confirmation of as documented by pronouncing clinician: no pulse, no respirations and no heart sounds Family: at bedside Attending Physician: Jay Jay Lovett Was code activated?: No Autopsy requested?: No Advance directives: Yes Hospice patient?: No
[2025-06-03 18:19] LABS: CMV DNA Detect/Quant, P 112 IU/mL (Undetected)
== END 2025-06-03 11:06 | disposition expired | DRG 699 ==
LOC: ER 16:56 → MS 18:53
PROVIDERS: Family Medicine; Hospitalist; Nurse Practitioner Acute Care; Admitting Provider Family Medicine; Emergency Provider Emergency Medicine; PCP Family Medicine; Responsible Provider Family Medicine; Visit Provider Family Medicine
DX: N39.0 Urinary tract infection, site not specified (principal); R19.7 Diarrhea, unspecified; N17.9 Acute kidney failure, unspecified; N40.0 Benign prostatic hyperplasia without lower urinary tract symptoms; I48.91 Unspecified atrial fibrillation; E11.22 Type 2 diabetes mellitus with diabetic chronic kidney disease; R93.5 Abnormal findings on diagnostic imaging of other abdominal regions, including retroperitoneum; Z94.0 Kidney transplant status; G54.6 Phantom limb syndrome with pain; R16.0 Hepatomegaly, not elsewhere classified; R11.0 Nausea; N18.5 Chronic kidney disease, stage 5; R91.8 Other nonspecific abnormal finding of lung field; T83.511A Infection and inflammatory reaction due to indwelling urethral catheter, initial encounter; C64.1 Malignant neoplasm of right kidney, except renal pelvis; D84.821 Immunodeficiency due to drugs; I12.0 Hypertensive chronic kidney disease with stage 5 chronic kidney disease or end stage renal disease; I48.20 Chronic atrial fibrillation, unspecified; I50.30 Unspecified diastolic (congestive) heart failure; N13.30 Unspecified hydronephrosis; Z16.19 Resistance to other specified beta lactam antibiotics; R18.8 Other ascites; Z51.5 Encounter for palliative care; Z79.621 Long term (current) use of calcineurin inhibitor; R25.1 Tremor, unspecified; E11.43 Type 2 diabetes mellitus with diabetic autonomic (poly)neuropathy; K31.84 Gastroparesis; K08.109 Complete loss of teeth, unspecified cause, unspecified class; J44.9 Chronic obstructive pulmonary disease, unspecified; E78.5 Hyperlipidemia, unspecified; D53.9 Nutritional anemia, unspecified; I25.10 Atherosclerotic heart disease of native coronary artery without angina pectoris; K21.9 Gastro-esophageal reflux disease without esophagitis; F41.9 Anxiety disorder, unspecified; F32.A Depression, unspecified; E11.65 Type 2 diabetes mellitus with hyperglycemia; I44.1 Atrioventricular block, second degree; H90.3 Sensorineural hearing loss, bilateral; E53.8 Deficiency of other specified B group vitamins; M54.50 Low back pain, unspecified; G47.33 Obstructive sleep apnea (adult) (pediatric); E66.9 Obesity, unspecified; Z89.512 Acquired absence of left leg below knee; Z89.511 Acquired absence of right leg below knee; Z79.4 Long term (current) use of insulin; B95.2 Enterococcus as the cause of diseases classified elsewhere; E11.649 Type 2 diabetes mellitus with hypoglycemia without coma; Z66 Do not resuscitate; K80.20 Calculus of gallbladder without cholecystitis without obstruction
CPT/HCPCS: 00123; 36415; 51702; 80048; 80053; 83690; 85027; 86850; 86900; 86901; 86920; 86945; 93005; 94640; 96361; 96365; 96367; 97162; 97530; 99285; 74176; 81003; 81015; 83605; 83735; 84100; 84484; 85025; 86644; 86645; 87086; 87497; 93010; 94664; 94667; 94668; 99222; 99231; 99232; 99233; J0290; J0696; J0881; J1171; J1596; J1644; J1815; J2060; J2405; J3010; J3475; J3490; J7042; J7060; J7517; J7620; P9016